=== PATIENT | female | born 1960 | race Caucasian/White ===

== ENCOUNTER → 2024-02-29 | Outpatient (REF) | payer OTHER, SELFPAY ==
[2024-02-29 08:57] LABS: Hematocrit 23.2 % (37-47); Hemoglobin 7.1 g/dL (12.0-15.0); Mean Corp Hgb Conc 30.6 g/dL (32-36); Mean Corpuscular Hgb 28.4 pg (27.0-32.0); Mean Corpuscular Volume 92.8 fL (81-99); Mean Platelet Vol. 9.8 fl (6.2-12.0); Platelet Count 207 K/mm3 (150-450); RBC Distribution Width CV 17.3 % (11.6-14.6); RBC Distribution Width SD 57.8 fl (35.1-43.9); White Blood Count 4.3 K/mm3 (4.4-11.0)
[2024-02-29 11:17] LABS: ALB/GLOB Ratio 0.6 RATIO (0.9-2.4); AST(SGOT) 24 U/L (15-37); Alanine Aminotransfer ALT/SGPT 7 U/L (13-56); Albumin, Serum 2.1 g/dL (3.2-5.0); Alkaline Phosphatase 49 U/L (45-117); Anion Gap 4 (5-15); BUN 14 mg/dL (7-18); BUN/Creat Ratio 7.8 RATIO (10-20); Calcium,Total 7.8 mg/dL (8.5-10.1); Chloride 97 mmol/L (98-107); Creatinine, Serum 1.79 mg/dL (0.55-1.02); EST Glomerular Filtration Rate 31 mL/min (>60); Est Glom Filt Rate - Afr Amer 37 mL/min (>60); Globulin 3.8 g/dL (2.2-4.2); Glucose 90 mg/dL (74-106); Potassium 2.6 mmol/L (3.5-5.1); Protein, Total 5.9 g/dL (6.4-8.2); Sodium Level 135 mmol/L (136-145)
== END ==
LOC: OLS.SW 05:10
PROVIDERS: PCP Family Medicine; Visit Provider Family Medicine
DX: I10 Essential (primary) hypertension (principal)
CPT/HCPCS: 36415; 80053; 85027

== ENCOUNTER 2024-03-11 17:30 | Emergency (ER) | payer OTHER, SELFPAY ==
[2024-03-11 17:34] VITALS: BP 110/63; PULSE 82; RESP 16; TEMP 36.9; O2SAT 95
--- NOTE | 2024-03-11 18:18 | EX.ED.DYSGE1 ---
HPI History of Present Illness Chief Complaint: Wound Check Detail of Chief Complaint: Patient presents for wound check Informant: patient Narrative Narrative: Patient presents to the emergency department from care home via EMS for a wound check to her abdominal wound after she had abdominal aortic aneurysm repair. Patient states that she had a emergency surgery to fix a ruptured AAA in July of this year. She then had revision 3 to 4 weeks ago at [facility] in [place]. Patient states that she has noticed some blood weeping from the wound for the last 2 weeks. Patient denies fevers although she has had some chills. Patient not scheduled to see the surgeons again till March. Patient on dialysis and normally goes on Monday and Monday. Patient also takes heparin injections every 8 hours. Patient also concerned about the wound on her left forearm. She also complains of black toes on her left foot that she has had since before the surgery and states that nobody is done anything about those. [facility] Medical History (Updated 03/11/24 @ 22:[address] Sadia Phoenix, ) nursing home (current) use of anticoagulants Gross hematuria Retroperitoneal hematoma Constipation, unspecified Raynaud's syndrome without gangrene Hypo-osmolality and hyponatremia Hyperlipidemia, unspecified Hypothyroidism, unspecified Anemia, unspecified Need for assistance with personal care Other malaise Other abnormalities of gait and mobility Unsteadiness on feet Muscle weakness (generalized) Other symbolic dysfunctions Dysphagia, oropharyngeal phase Essential (primary) hypertension Activated protein C resistance Unspecified severe protein-calorie malnutrition Acute respiratory failure with hypoxia Emphysema, unspecified Peripheral vascular disease, unspecified Enterocolitis due to Clostridium difficile, not specified as recurrent Acute kidney failure, unspecified Leakage of aortic (bifurcation) graft (replacement), subsequent encounter Abdominal aortic aneurysm, ruptured, unspecified Home Medications ?Medication ?Instructions ?Recorded ?Last Taken ?Type amlodipine 10 mg tablet 10 mg PO DAILY 03/11/24 Unknown History aspirin 81 mg tablet,delayed 81 mg PO DAILY 03/11/24 Unknown History release (Adult Aspirin Regimen) atorvastatin 20 mg tablet 20 mg PO QHS 03/11/24 Unknown History heparin (porcine) 5,000 unit/mL (1 5,000 unit subcut Q8H 03/11/24 Unknown History mL) injection cartridge hydralazine 25 mg tablet 25 mg PO BID PRN PRN blood pressure 03/11/24 Unknown History levothyroxine 125 mcg tablet 125 mcg PO DAILY 03/11/24 Unknown History levothyroxine 25 mcg tablet 25 mcg PO 03/11/24 Unknown History metoprolol tartrate 25 mg tablet 25 mg PO BID 03/11/24 Unknown History oxycodone 5 mg tablet 5 mg PO Q6H 03/11/24 Unknown History Allergy/AdvReac Type Severity Reaction Status Date / Time iodine Allergy Intermediate Nausea Verified 03/11/24 17:34 shellfish derived Allergy Intermediate Nausea Verified 03/11/24 17:34 Social History Smoking Status: Former smoker ROS ROS ED Review of Systems ROS Unobtainable: other Constitutional Constitutional ED: Reports lethargy; Denies chills, fever(s), sweats or weight loss Eyes Eyes: Denies blurry vision, change in vision or diplopia ENT ENT ED: Denies rhinorrhea or sore throat Cardiovascular Cardiovascular: Denies chest pain, orthopnea or racing heartbeat Respiratory/Chest Respiratory/Chest: Denies cough, dyspnea, dyspnea on exertion, orthopnea or sputum Gastrointestinal Gastrointestinal: Reports other Details: Abdominal wound ; Denies abdominal pain, diarrhea, nausea or vomiting Genitourinary Genitourinary ED: Denies dysuria, hematuria or urinary frequency Musculoskeletal Musculoskeletal: Reports other Details: Black toes on left foot ; Denies arthralgias, back pain, myalgias or neck pain Integumentary Denies abscess, Abrasions or rash Neurologic Neurologic: Denies headache(s) or weakness Psychiatric Psychiatric: Denies anxiety, depression or suicidal thoughts Endocrine Endocrinology: Denies polydipsia, polyphagia or polyuria Hematologic/Lymphatic Hematologic/Lymphatic: Denies easy bleeding, easy bruising or lymphadenopathy Allergic/Immunologic Allergic/Immunologic ED: Denies mouth swelling, tongue swelling or urticaria EXAM Physical Exam Const Vital Signs: 03/11/24 17:34 03/11/24 19:00 03/11/24 19:30 Temperature 98.5 F 97.6 F L Temperature Source Oral Temporal Pulse Rate 82 80 82 Respiratory Rate 16 19 H Blood Pressure 110/63 141/71 H 138/70 H Blood Pressure Mean 78 94 92 Pulse Ox 95 92 Oxygen Delivery Method Nasal Cannula Nasal Cannula Oxygen Flow Rate (L/min) 3 3 03/11/24 20:00 03/11/24 22:00 Temperature 97.6 F L 98.0 F Temperature Source Temporal Temporal Pulse Rate 87 88 Respiratory Rate 19 H 16 Blood Pressure 121/74 H 132/79 H Blood Pressure Mean 89 96 Pulse Ox 97 94 Oxygen Delivery Method Nasal Cannula Nasal Cannula Oxygen Flow Rate (L/min) 3 Positive well nourished and well developed General Appearance ED: well developed and NAD HEENT Reports TM's clear and moist mucous membranes normocephalic and atraumatic; Negative for trauma or tenderness Tympanic Membrane ED: Yes TM's clear Eyes PERRL and EOMs intact bilaterally General Eye ED: Negative for pale conjunctiva or scleral icterus Neck no lymphadenopathy, supple and no JVD General: Negative for tenderness Chest Wall inspection of chest normal and palpation of chest normal Chest: Negative for tenderness Resp normal respiratory effort and clear to auscultation bilaterally Effort and Inspection: Negative for respiratory distress or pain with movement Auscultation: Negative for rhonchi, wheezes or diminished lung sounds Cardio regular rate, regular rhythm, S1 normal heart sound, S2 normal heart sound and no murmurs Peripheral Pulses: pulses 2+ throughout GI normal to inspection, nondistended, normoactive bowel sounds, soft to palpation, non-distended and no masses GI Narrative: Patient has a large wound on the left lower abdomen that appears to have dehisced with large central clot and some oozing of blood from the periphery of the wound. No significant cellulitic changes noted. Back/Spine no CVA tenderness and no thoracic nor lumbar tenderness Extremity normal to inspection Extremity Narrative: Left wrist-patient has small 2 cm wound to her left wrist I suspect may be related to cannulization of area. No cellulitic changes noted here. No masses palpated. No fluctuance. Neurovascularly intact. Left foot-patient does have necrosis to the distal tip of the great toe as well as the second toe. She does have dorsal pedal pulses that are palpable. Cap refill 5 seconds. General Extremety ED: Negative for edema General Extremity: Negative for edema Neuro oriented x3, CN's II-XII intact bilaterally, no sensory deficits noted and gait normal Sensorium / Orientation: awake, alert, oriented to person, oriented to place and oriented to time Motor Exam: strength 5/5 throughout and strength abnormal Psych mental status grossly normal Skin no rashes or lesions noted and no wounds MDM MDM MDM Narrative Medical decision making narrative: Patient presents the emergency department for wound check to the abdominal wound. Patient had surgery for a AAA repair 2 to 3 weeks ago at [facility]. Patient's been having issues with the wound healing and has been having bleeding from the wound for couple weeks. Patient on heparin 3 times a day subcu. She denies fever but she has had some chills. CBC with differential obtained showed a white count of 6.2 with hemoglobin 7.4 and platelet count of 166. Chemistries unremarkable. CT scan of the abdomen pelvis obtained without contrast as we could not obtain a good peripheral IV. CT shows multiple abdominal fluid collections including right upper abdomen and left mid abdomen left abdominal wall with potential hematomas versus abscesses. Patient also noted to have pleural effusions bilaterally. Discussed results with patient. Also discussed case with [facility] transfer line and patient was accepted to their facility to their emergency department by Dr. Guerra for further evaluation. I was able to place a left EJ IV which patient tolerated well. Lab Data Attestation: I reviewed the patient's lab results. Labs: Laboratory Results - last 24 hr 03/11/24 18:40 WBC 6.2 RBC 2.51 L Hgb 7.4 L Hct 24.1 L MCV 96.0 MCH 29.5 MCHC 30.7 L RDW Std Deviation 63.7 H RDW Coeff of Monika 18.2 H Plt Count 166 MPV 9.6 Neut % (Auto) Not Reportable Absolute Neuts (auto) 5.5 Absolute Lymphs (auto) 0.31 L Total Counted 100 Neutrophils % (Manual) 85 H Band Neutrophils % 4 Lymphocytes % (Manual) 5 L Monocytes % (Manual) 2 Metamyelocytes % 1 Myelocytes % 3 H Differential Comment Not Reportable Diff Path Review May foll Platelet Estimate ADEQUATE RBC Morphology N CHROM Hypochromasia RARE Anisocytosis RARE Macrocytosis RARE Sodium 135 L Potassium 3.7 Chloride 98 Carbon Dioxide 31.0 Anion Gap 5 BUN 9 Creatinine 1.37 H Estim Creat Clear Calc 39.14 Est GFR (MDRD) Af Amer 50 L Est GFR (MDRD) Non-Af 42 L BUN/Creatinine Ratio 6.6 L Glucose 62 L Calcium 8.5 Radiography Diagnostic Testing: Clinical Impression(s) from Imaging Studies Foot X-Ray 03/11/24 18:45 IMPRESSION: No demonstrated phalangeal fracture or suspicious osseous lesion Distal joint arthrosis Electronically Signed: Pablo Gonzales MD at 19:41 EDT , Abdomen/Pelvis CT 03/11/24 19:04 IMPRESSION: Multiple abdominal fluid collections including in the right upper abdomen, left midabdomen, and left abdominal wall with potential hematomas versus abscesses. Hepatosplenomegaly. Calcified retroperitoneal and pelvic lymph nodes. Lower lung consolidation and pleural effusions. Electronically Signed: Constantin Hensley MD at 22:27 EDT , Discharge Plan Triage Chief Complaint: Wound Check ED Provider: Sadia Phoenix Dx/Rx/DC Orders Clinical Impression: Postoperative abdominal wound hemorrhage, Anemia Prescriptions: No Action amlodipine 10 mg tablet 10 mg PO DAILY aspirin [Adult Aspirin Regimen] 81 mg tablet,delayed release (DR/EC) 81 mg PO DAILY atorvastatin 20 mg tablet 20 mg PO QHS heparin (porcine) 5,000 unit/mL (1 mL) cartridge 5,000 unit subcut Q8H hydralazine 25 mg tablet 25 mg PO BID PRN PRN (Reason: blood pressure) levothyroxine 25 mcg tablet 25 mcg PO Rx Instructions: give every mon, levothyroxine 125 mcg tablet 125 mcg PO DAILY metoprolol tartrate 25 mg tablet 25 mg PO BID oxycodone 5 mg tablet 5 mg PO Q6H Primary Care Provider: Ethan Rodriguez Referrals: Ethan Rodriguez MD [Primary Care Provider] - Print Language: Stateless Disposition Disposition: DC/Tx to Another Type of HCF
--- NOTE | 2024-03-11 18:45 | RAD_ITS ---
STUDY: X-RAY - LEFT FOOT CLINICAL: Female, 63 years old. Pain and swelling TECHNIQUE: 3 view(s) of the foot. COMPARISON: None. FINDINGS: Normal talus, calcaneus, and tarsal bones. Normal visualized subtalar, talonavicular, calcaneocuboid, tarsal and tarsometatarsal articulations. Normal metatarsi. Normal metatarsophalangeal joint of the great toe. Normal tibial and fibular sesamoid bones. Interphalangeal joint arthrosis. Normal phalanges of the great toe. Normal second through fifth metatarsophalangeal joints. Age consistent PIP and DIP joint arthrosis. No demonstrated phalangeal fracture or suspicious osseous lesion The soft tissue structures are unremarkable. RAD/Foot min 3 Views IMPRESSION: No demonstrated phalangeal fracture or suspicious osseous lesion Distal joint arthrosis Electronically Signed: Pablo Gonzales MD at 19:41 EDT ,
[2024-03-11 18:47] LABS: Hematocrit 24.1 % (37-47); Hemoglobin 7.4 g/dL (12.0-15.0); Mean Corp Hgb Conc 30.7 g/dL (32-36); Mean Corpuscular Hgb 29.5 pg (27.0-32.0); Mean Platelet Vol. 9.6 fl (6.2-12.0); POSITIVE COUNT YES; POSITIVE MORPHOLOGY YES; Platelet Count 166 K/mm3 (150-450); RBC Distribution Width CV 18.2 % (11.6-14.6); RBC Distribution Width SD 63.7 fl (35.1-43.9); Red Blood Count 2.51 M/mm3 (4.2-5.4); White Blood Count 6.2 K/mm3 (4.4-11.0)
[2024-03-11 18:53] LABS: Differential Indicated MANUAL DIFF
[2024-03-11 18:57] VITALS: BMI 17.2
[2024-03-11 19:00] VITALS: BP 141/71; PULSE 80; RESP 19; TEMP 36.4; O2SAT 92
[2024-03-11 19:00] LABS: Anion Gap 5 (5-15); BUN 9 mg/dL (7-18); BUN/Creat Ratio 6.6 RATIO (10-20); Calcium,Total 8.5 mg/dL (8.5-10.1); Chloride 98 mmol/L (98-107); Creatinine, Serum 1.37 mg/dL (0.55-1.02); EST Glomerular Filtration Rate 42 mL/min (>60); Est Glom Filt Rate - Afr Amer 50 mL/min (>60); Estimated Creatinine Clearance 39.14 ml/min; Glucose 62 mg/dL (74-106); Potassium 3.7 mmol/L (3.5-5.1); Sodium Level 135 mmol/L (136-145)
--- NOTE | 2024-03-11 19:04 | CT_ITS ---
STUDY: CT ABDOMEN AND PELVIS WITHOUT CONTRAST REASON FOR EXAM: Female, 63 years old. Wound left abdomen s/p AAA repair RADIATION DOSAGE (If Supplied By Facility): CTDIvol = ( 6.28 ) mGy, DLP = ( 389.03 ) mGycm TECHNIQUE: Transaxial images were obtained from the dome of the diaphragm to the symphysis pubis without oral contrast, and without intravenous contrast. Sagittal and coronal images were reconstructed. Individualized dose optimization techniques were used for this CT. COMPARISON: None. FINDINGS: There is lower lung airspace consolidation.. There are moderate bilateral pleural effusions. There are coronary artery calcifications. There is hepatomegaly with diffuse hepatic enlargement. Normal gallbladder and extrahepatic biliary system. There is mild splenomegaly. Normal pancreas. Normal bilateral adrenal glands. There is mild atrophy of the right kidney. Adjacent to the medial aspect of the right kidney is a 6.2 x 3.0 cm peripherally calcified low-density collection. Normal left kidney. Normal visualized stomach. Normal small intestine. Normal colon. There is moderate stool. There is non-visualization of the appendix. There is atherosclerotic calcification of the abdominal aorta with graft extending to the iliac arteries and left common iliac artery stent. Normal inferior vena cava. There are multiple calcified retroperitoneal and pelvic lymph nodes. Normal urinary bladder. Normal visualized uterus. There is mild free fluid in the abdomen and pelvis. There is 10.2 x 8.3 cm fluid collection of the left mid abdomen. There is 6.5 x 3.3 cm fluid collection of the left lower abdominal wall. There is degenerative change of the spine at L5-S1. CT/Abdomen/Pelvis without Cont IMPRESSION: Multiple abdominal fluid collections including in the right upper abdomen, left midabdomen, and left abdominal wall with potential hematomas versus abscesses. Hepatosplenomegaly. Calcified retroperitoneal and pelvic lymph nodes. Lower lung consolidation and pleural effusions. Electronically Signed: Constantin Hensley MD at 22:27 EDT ,
--- NOTE | 2024-03-11 19:28 | ED.RN ---
Pt. refusing anymore PIV attempts at this time. Pt. educated and IV was necessary to potentially receive medications/antibiotics. CT changed to no contrast at this time.
[2024-03-11 19:30] VITALS: BP 138/70; PULSE 82
[2024-03-11 19:48] LABS: Lymphocyte 5 % (19-41); Metamyelocyte 1 % (0-1); Monocyte 2 % (0-10); Myelocyte 3 % (0-0); Neutrophil-Band 4 % (0-5); Neutrophil-Segmented 85 % (47-70); Total Cells Counted 100 (MANUAL DIFF)
[2024-03-11 19:50] LABS: Anisocytosis RARE; Hypochromasia RARE; Macrocytosis RARE; Platelet Estimate ADEQUATE (ADEQ); Red Cell Morphology N CHROM NORMAL (NORM C&C)
[2024-03-11 19:52] LABS: Absolute Lymphocyte Count 0.31 X10^3/uL (0.83-4.51); Absolute Neutrophil Count 5.5 X10^3/uL (2.0-7.7)
[2024-03-11 20:00] VITALS: BP 121/74; PULSE 87; RESP 19; TEMP 36.4; O2SAT 97
[2024-03-11 22:00] VITALS: BP 132/79; PULSE 88; RESP 16; TEMP 36.7; O2SAT 94
--- NOTE | 2024-03-11 22:51 | ED.RN ---
This RN called to give report to [facility] and let them know she will be transferred to [place].
--- NOTE | 2024-03-11 22:52 | ED.RN ---
PT ACCEPTED AT [facility]
[2024-03-11 23:00] VITALS: BP 139/81; PULSE 79; RESP 20; TEMP 36.9; O2SAT 94
--- NOTE | 2024-03-11 23:02 | ED.RN ---
CALLED [facility] ETA 730AM. ASKED FOR OUTSOURCE, TO CALL BACK.
[2024-03-12] VITALS (10 sets, daily range): BP systolic 121–144; BP diastolic 65–83; PULSE 77–92; RESP 16–20; TEMP 36.6–36.9; O2SAT 93–100
[2024-03-12] MEDS: Morphine 4 MG/ML Syringe IV (02:37)
[2024-03-12 14:42] LABS: Pathologist Review Reviewed
== END 2024-03-12 08:34 | disposition other institution (70) ==
PROVIDERS: Emergency Provider Emergency Medicine; PCP Family Medicine; Visit Provider Emergency Medicine
DX: L76.22 Postprocedural hemorrhage of skin and subcutaneous tissue following other procedure (principal); I96 Gangrene, not elsewhere classified; J43.9 Emphysema, unspecified; S61.502A Unspecified open wound of left wrist, initial encounter; X58.XXXA Exposure to other specified factors, initial encounter; J90 Pleural effusion, not elsewhere classified; Z99.2 Dependence on renal dialysis; R68.83 Chills (without fever); I10 Essential (primary) hypertension; E78.5 Hyperlipidemia, unspecified; E03.9 Hypothyroidism, unspecified; D64.9 Anemia, unspecified; Z79.82 Long term (current) use of aspirin; Z79.01 Long term (current) use of anticoagulants; Z79.890 Hormone replacement therapy; Z79.899 Other long term (current) drug therapy; Z87.891 Personal history of nicotine dependence
CPT/HCPCS: 73630; 74176; 80048; 85025; 96374; 99285; A4216

== ENCOUNTER 2024-04-11 00:13 | Emergency (ER) | payer OTHER, SELFPAY ==
[2024-04-11] VITALS (8 sets, daily range): BP systolic 104–114; BP diastolic 57–66; PULSE 78–100; RESP 16–18; TEMP 36.4–37; O2SAT 94–98; BMI 20.5
[2024-04-11] MEDS: 0.9% Normal Saline (500mL Bag) 500 ML 999 ML IV (00:48)
[2024-04-11 00:51] LABS: Absolute Lymphocyte Count 0.63 X10^3/uL (0.83-4.51); Absolute Neutrophil Count 12.6 X10^3/uL (2.0-7.7); Basophil# 0.07 X10^3/uL; Basophil% 0.5 % (0-1); Eosinophil# 0.02 X10^3/uL; Eosinophils% 0.1 % (0-5); Hematocrit 32.4 % (37-47); Hemoglobin 9.7 g/dL (12.0-15.0); Lymphocyte # 0.63 X10^3/ul (0.83-4.51); Lymphocyte % 4.5 % (19-41); Mean Corp Hgb Conc 29.9 g/dL (32-36); Mean Corpuscular Hgb 27.9 pg (27.0-32.0); Mean Corpuscular Volume 93.1 fL (81-99); Mean Platelet Vol. 9.6 fl (6.2-12.0); Monocyte# 0.57 X10^3/uL; Monocyte% 4.1 % (0-10); NRBC Flagged by Analyzer 0 % (0-5); Neutrophil # 12.56 X10^3/uL (2.7-7.7); Neutrophil % 89.3 % (47-70); POSITIVE MORPHOLOGY YES; Platelet Count 141 K/mm3 (150-450); RBC Distribution Width CV 17.3 % (11.6-14.6); RBC Distribution Width SD 57.4 fl (35.1-43.9); Red Blood Count 3.48 M/mm3 (4.2-5.4); White Blood Count 14.1 K/mm3 (4.4-11.0)
[2024-04-11 00:52] LABS: Differential Indicated SCAN CRITERIA MET
--- NOTE | 2024-04-11 00:55 | RAD_ITS ---
INDICATION: fever EXAMINATION/TECHNIQUE: X-RAY - XR Chest 1 View COMPARISON: None. FINDINGS: LINES/DEVICES: Right-sided dialysis catheter with the distal tip at the superior vena cava/right atrial junction. LUNGS: Small left pleural effusion. No focal infiltrate is identified. No evidence of a pneumothorax. Hyperinflation of the lungs which may represent COPD. MEDIASTINUM AND CARDIOVASCULAR STRUCTURES: Cardiac silhouette is normal in size and contour. Mediastinum is unremarkable. BONES AND SOFT TISSUES: No acute abnormality. RAD/Chest 1 View (Portable) IMPRESSION: Small left pleural effusion. Electronically Signed: Lavon Smith DO at 1:26 EST ,
[2024-04-11 01:05] LABS: Anion Gap 5 (5-15); BUN 39 mg/dL (7-18); BUN/Creat Ratio 18.3 RATIO (10-20); Calcium,Total 7.6 mg/dL (8.5-10.1); Chloride 100 mmol/L (98-107); Creatinine, Serum 2.13 mg/dL (0.55-1.02); EST Glomerular Filtration Rate 25 mL/min (>60); Est Glom Filt Rate - Afr Amer 30 mL/min (>60); Estimated Creatinine Clearance 23.69 ml/min; Glucose 87 mg/dL (74-106); Potassium 3.9 mmol/L (3.5-5.1); Sodium Level 137 mmol/L (136-145)
[2024-04-11 01:15] LABS: Procalcitonin 0.62 ng/mL (0.00-0.09)
[2024-04-11 01:27] LABS: Differential Comment SCANNED; Platelet Estimate ADEQUATE (ADEQ); Red Cell Morphology NORM C+C NORMAL (NORM C&C)
[2024-04-11 02:39] LABS: Mucous, Urine 0 SEEN /hpf (<or=2+); Squamous Epithelial Cells - UA 0 SEEN /hpf (5-10)
[2024-04-11 02:41] LABS: Color, Urine Amber (Yellow); Glucose, Dipstick Normal (Normal); Ketone-Dipstick Negative (Negative); Leukocyte Esterase-Dipstick 500 /ul (Negative); Nitrite-Dipstick Negative (Negative); Occult Blood-Urine 25 /ul (Negative); Protein-Dipstick 30 mg/dl (Negative); Urine Clarity Clear (Clear); Urine Urobilinogen Normal (Normal); Urine pH 6.5 (5.0 - 8.0)
[2024-04-11 03:04] LABS: Bacteria 1+ /hpf (None Seen); Red Blood Cells-Urine 0-5 SEEN /hpf (0-5); Urine Bilirubin Dipstick 3 mg/dL (Negative); White Blood Cells 10-25 SEEN /hpf (0-5)
--- NOTE | 2024-04-11 03:07 | EX.ED.DYSGE1 ---
HPI History of Present Illness Chief Complaint: Fever Informant: EMS and SNF Narrative Narrative: Patient is a 63-year-old female with past medical history of hypertension hyperlipidemia hypothyroidism and chronic renal 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. She previously had to have a ruptured aortic aneurysm fixed and then was recently seen in the hospital secondary to left-sided abdominal pain and found to have fluid collection concerning for abscess formation along the left kidney. She was transferred to an outside facility and underwent surgical intervention for this. She is back at the [facility] and today began complaining of some left-sided abdominal pain and according to the nursing staff had a temperature of 100 degrees and therefore they were concerned about repeat infection and therefore sent the patient to the hospital for evaluation They report the patient is chronically confused and is at her baseline mental status Patient is a DNR comfort care only [facility] Medical History (Updated 04/14/24 @ 06:[address] Wilbert Cueto, DO) long-term (current) use of anticoagulants Gross hematuria Retroperitoneal hematoma Constipation, unspecified Raynaud's syndrome without gangrene Hypo-osmolality and hyponatremia Hyperlipidemia, unspecified Hypothyroidism, unspecified Anemia, unspecified Need for assistance with personal care Other malaise Other abnormalities of gait and mobility Unsteadiness on feet Muscle weakness (generalized) Other symbolic dysfunctions Dysphagia, oropharyngeal phase Essential (primary) hypertension Activated protein C resistance Unspecified severe protein-calorie malnutrition Acute respiratory failure with hypoxia Emphysema, unspecified Peripheral vascular disease, unspecified Enterocolitis due to Clostridium difficile, not specified as recurrent Acute kidney failure, unspecified Leakage of aortic (bifurcation) graft (replacement), subsequent encounter Abdominal aortic aneurysm, ruptured, unspecified Home Medications ?Medication ?Instructions ?Recorded ?Last Taken ?Type amlodipine 10 mg tablet 5 mg PO DAILY 03/11/24 Unknown History aspirin 81 mg tablet,delayed 81 mg PO DAILY 03/11/24 Unknown History release (Adult Aspirin Regimen) atorvastatin 20 mg tablet 20 mg PO QHS 03/11/24 Unknown History heparin (porcine) 5,000 unit/mL (1 5,000 unit subcut Q8H 03/11/24 Unknown History mL) injection cartridge levothyroxine 125 mcg tablet 125 mcg PO DAILY 03/11/24 Unknown History levothyroxine 25 mcg tablet 25 mcg PO DAILY 03/11/24 Unknown History metoprolol tartrate 25 mg tablet 25 mg PO BID 03/11/24 Unknown History oxycodone 5 mg tablet 5 mg PO Q6H 03/11/24 Unknown History ascorbic acid (vitamin C) 500 mg 500 mg PO DAILY 04/11/24 Unknown History capsule cephalexin 500 mg capsule 500 mg PO TID 7 days #21 caps 04/11/24 Unknown Rx famotidine 20 mg tablet (Pepcid) 10 mg PO DAILY 04/11/24 Unknown History multivit,tx with iron 27 1 tab PO DAILY 04/11/24 Unknown History ki-wevqzmn-tmxze acid 0.4 mg-minerals tablet (Thera-M) thiamine HCl (vitamin B1) 100 mg 100 mg PO BID 04/11/24 Unknown History tablet Allergy/AdvReac Type Severity Reaction Status Date / Time iodine Allergy Intermediate Nausea Verified 04/11/24 00:21 shellfish derived Allergy Intermediate Nausea Verified 04/11/24 00:21 Social History Smoking Status: Former smoker ROS ROS ED ROS Narrative Please no review of systems may be unreliable based on patient's history of chronic altered mental status/confusion Constitutional Constitutional ED: Denies chills or fever(s) Eyes Eyes: Denies change in vision ENT ENT ED: Denies sore throat Cardiovascular Cardiovascular: Denies chest pain Respiratory/Chest Respiratory/Chest: Denies cough or dyspnea Gastrointestinal Gastrointestinal: Reports abdominal pain; Denies diarrhea, nausea or vomiting Genitourinary Genitourinary ED: Denies dysuria Musculoskeletal Musculoskeletal: Denies back pain or myalgias Integumentary Denies rash Neurologic Neurologic: Denies headache(s) Hematologic/Lymphatic Hematologic/Lymphatic: Denies easy bleeding or easy bruising EXAM Physical Exam Const Vital Signs: 04/11/24 00:14 04/11/24 01:19 04/11/24 02:00 Temperature 98.4 F 98.2 F 97.5 F L Temperature Source Oral Oral Oral Pulse Rate 100 98 100 Respiratory Rate 16 18 18 Blood Pressure 114/65 112/66 106/61 Blood Pressure Mean 81 81 76 Pulse Ox 98 98 97 Oxygen Delivery Method Room Air Room Air Room Air 04/11/24 02:14 04/11/24 03:00 04/11/24 04:21 Temperature 98.6 F 97.8 F Temperature Source Temporal Oral Pulse Rate 100 78 Respiratory Rate 18 17 Blood Pressure 106/61 111/65 104/57 L Blood Pressure Mean 76 80 72 Pulse Ox 98 94 Oxygen Delivery Method Room Air Room Air Positive well developed, cachectic and unkempt General Appearance ED: unkempt, well developed and cachectic Nutritional Appearance: cachectic HEENT Reports dry mucous membranes HEENT Narrative: Mucous membranes are dry and tacky No tongue or lip swelling no oral lesions no airway edema or compromise No secondary findings in the posterior pharynx to suggest infection Mouth ED: Yes dry mucous membranes Mouth: dry mucous membranes Eyes PERRL and EOMs intact bilaterally General Eye ED: Negative for scleral icterus Neck supple Neck Narrative: No nuchal rigidity or meningeal signs noted Chest Wall palpation of chest normal Chest Narrative: No bony deformity or crepitance There is a port in place in the right chest wall consistent with history of dialysis use. No surrounding soft tissue changes to suggest infection Resp normal respiratory effort and clear to auscultation bilaterally Resp Narrative: Breath sounds are diminished throughout but overall clear to auscultation without signs of respiratory distress Cardio regular rate and regular rhythm Rate: other Other Details: Radial and carotid pulses are equal and symmetric GI non-distended and no masses GI Narrative: Abdomen is soft and nondistended with hypoactive bowel sounds. There is pain with palpation along the left lateral abdomen where there is a surgical wound consistent with the reported recent procedure. There is mild dehiscence of the wound but no surrounding signs of secondary infection such as cellulitis or abscess formation. No voluntary guarding or rigidity noted. No pulsatile mass or fluid wave Auscultation: hypoactive bowel sounds Palpation: soft Extremity Extremity Narrative: Trace to +1 pitting edema to the bilateral lower extremities that is equal and symmetric Neuro CN's II-XII intact bilaterally Neuro Narrative: Patient is awake and alert but disoriented to time and place This is reportedly baseline mental status per [facility] No focal neurologic deficit noted Sensorium / Orientation: alert Psych Psych Narrative: Patient has a flat affect Appearance: unkempt Skin Skin Narrative: Wound along the left side abdomen with mild dehiscence but no surrounding secondary findings of infection Patient has delayed capillary refill at 3 seconds to her toes bilaterally consistent with history of Raynaud's without secondary findings to suggest infection MDM MDM MDM Narrative Medical decision making narrative: Patient arrived to the ER with stable vitals and a soft nonsurgical abdomen. Nursing reported a temperature of 100 but report is not give any type of antipyretics such as Tylenol or Motrin and upon arrival patient has a normal temperature of 98.4. Based on her previous surgeries and concern for potential systemic infection such as sepsis versus acute blood loss anemia versus acute on chronic kidney injury versus electrolyte abnormality such as hypokalemia versus internal infection versus UTI or pneumonia I did elect to perform a basic workup. Patient's white count is slightly elevated at 14.1 and absolute neutrophil count is also slight elevated at 12.6 which could be related to stress response versus developing infection. Patient's H&H is low at approximately 10 but this is stable per chart review. Her creatinine is slightly elevated at 2.13 but she has a history of chronic kidney disease and is on dialysis so therefore this is not concerning and her electrolytes are within normal limits. The patient still makes urine and with potential for UTI urine sample was obtained. This did show findings concerning for developing infection +1 bacteria and 10-25 white blood cells without contamination. Therefore the urine was sent for culture and she was started on Rocephin. Because of her recent history of infection around the left kidney requiring abdominal surgery repeat CT scan was obtained. The CT scan shows the persistent pockets of fluid but stated they were smaller in size than previous. And also documented changes concerning for small bowel obstruction. The patient is not distended she is not having bouts of vomiting and she is a DNR comfort care only. I did discuss the case with general surgeon Dr. Vanegas and he agrees as patient is not having bouts of vomiting and is not distended and is a DNR comfort care only at there is no reason for an NG tube or placement in the hospital. With the patient showing improvement of the lesions on her CT scan and not spiking a fever of her entire ER stay I do not feel this needs transferred for repeat evaluation by the surgical team. The fact that her cath urine sample does show changes concerning for infection could indicate the mild fever that they reported at [facility]. However as she is a DNR comfort care only who at this time is hemodynamically stable she does not require admission or transfer she can be given antibiotics while cultures are pending and is safe for discharge back to the [facility] Lab Data Attestation: I reviewed the patient's lab results. Labs: Laboratory Results - last 24 hr 04/11/24 04/11/24 00:24 02:35 WBC 14.1 H RBC 3.48 L Hgb 9.7 L Hct 32.4 L MCV 93.1 MCH 27.9 MCHC 29.9 L RDW Std Deviation 57.4 H RDW Coeff of Monika 17.3 H Plt Count 141 L MPV 9.6 Immature Gran % (Auto) 1.500 H Neut % (Auto) 89.3 H Lymph % (Auto) 4.5 L [place] % (Auto) 4.1 Eos % (Auto) 0.1 Baso % (Auto) 0.5 Absolute Neuts (auto) 12.6 H Absolute Lymphs (auto) 0.63 L Nucleated RBC % 0 Differential Comment SCANNED Platelet Estimate ADEQUATE RBC Morphology NORM C+C Sodium 137 Potassium 3.9 Chloride 100 Carbon Dioxide 31.0 Anion Gap 5 BUN 39 H Creatinine 2.13 H Estim Creat Clear Calc 23.69 Est GFR (MDRD) Af Amer 30 L Est GFR (MDRD) Non-Af 25 L BUN/Creatinine Ratio 18.3 Glucose 87 Calcium 7.6 L Procalcitonin 0.62 H Urine Color [place] Urine Clarity Clear Urine pH 6.5 Ur Specific [place] 1.010 Urine Protein 30 H Urine Glucose (UA) Normal Urine Ketones Negative Urine Occult Blood 25 H Urine Nitrite Negative Urine Bilirubin 3 H Urine Urobilinogen Normal Ur Leukocyte Esterase 500 H Urine RBC 0-5 SEEN Urine WBC 10-25 SEEN Ur Squamous Epith Cells 0 SEEN Urine Bacteria 1+ Urine Mucus 0 SEEN Radiography Diagnostic Testing: Clinical Impression(s) from Imaging Studies Chest X-Ray 04/11/24 00:55 IMPRESSION: Small left pleural effusion. Electronically Signed: Lavon Smith DO at 1:26 EST , Abdomen/Pelvis CT 04/11/24 03:38 IMPRESSION: 1. Fluid collections again seen medial to the right kidney and in the left hemipelvis, decrease in size as compared to 03/11/2024, possibly representing resolving hematomas or abscesses. 2. Dilated small bowel with air-fluid levels measuring up to 3.6 cm in diameter which may represent small bowel obstruction. 3. Bilateral renal atrophy. 4. Mild ascites. 5. Anasarca. 6. Small to moderate left and small right pleural effusions with associated atelectasis. 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, Hypertension Instructions: Urinary Tract Infections in Women Prescriptions: New cephalexin 500 mg capsule 500 mg PO TID 7 Days Qty: 21 0RF No Action amlodipine 10 mg tablet 5 mg PO DAILY aspirin [Adult Aspirin Regimen] 81 mg tablet,delayed release (DR/EC) 81 mg PO DAILY atorvastatin 20 mg tablet 20 mg PO QHS heparin (porcine) 5,000 unit/mL (1 mL) cartridge 5,000 unit subcut Q8H levothyroxine 25 mcg tablet 25 mcg PO DAILY Rx Instructions: give every mon, levothyroxine 125 mcg tablet 125 mcg PO DAILY metoprolol tartrate 25 mg tablet 25 mg PO BID oxycodone 5 mg tablet 5 mg PO Q6H famotidine [Pepcid] 20 mg tablet 10 mg PO DAILY ascorbic acid (vitamin C) 500 mg capsule 500 mg PO DAILY Thera-M 27-0.4 mg tablet 1 tab PO DAILY thiamine HCl (vitamin B1) 100 mg tablet 100 mg PO BID Primary Care Provider: Ethan Rodriguez Referrals: Ethan Rodriguez MD [Primary Care Provider] - Activity Restrictions/Additional Instructions: Your workup today showed a urinary tract infection but no signs of urosepsis. Your CAT scan shows that your previous blood and infection around your right kidney is improving. Add the Keflex/antibiotic that was prescribed from the ER secondary to the UTI but continue all of your other medications as directed by your doctor. Return to the ER should you have any further concerns Print Language: Hebrew Disposition Disposition: Home, Self Care Discharge Date/Time: 04/11/24 07:47
[2024-04-11] MEDS: Ceftriaxone 1 GM/50 ML BAG IV (03:19)
--- NOTE | 2024-04-11 03:38 | CT_ITS ---
INDICATION: abd pain EXAMINATION: CT Abdomen And Pelvis W/O Contrast Injection TECHNIQUE: Helically acquired images were obtained of the abdomen and pelvis with sagittal and coronal reconstructed images. Individualized dose optimization techniques were used for this CT. IV contrast dosage and agent: None. Oral contrast: None. COMPARISON: 03/11/2024 CT. FINDINGS: VESSELS: 3.0 cm aneurysm of the infrarenal abdominal aorta. LIVER: No intrahepatic or extrahepatic biliary duct dilation. GALLBLADDER: No calcified stones. No evidence of cholecystitis. PANCREAS: No evidence of a mass. SPLEEN: Normal. ADRENAL GLANDS: Normal. KIDNEYS AND URETERS: No urinary tract stone. No hydronephrosis or hydroureter. No significant asymmetric perinephric stranding. Bilateral renal atrophy. Again seen is a peripherally calcified fluid collection medial to the right kidney, slightly decreased in size. Fluid collection in the left hemipelvis currently measures 8.0 x 5.8 x 4.6 cm, decreased in size as compared to the prior CT. URINARY BLADDER: Unremarkable. BOWEL: No evidence of diverticulosis or diverticulitis. Appendix not identified. Dilated small bowel with air-fluid levels measuring up to 3.6 cm in diameter. REPRODUCTIVE ORGANS: Unremarkable. PERITONEUM: Mild ascites. No free air. LYMPH NODES: Calcified lymph nodes versus vascular calcifications throughout the abdomen, pelvis and inguinal regions. ABDOMINAL WALL: No abdominal or pelvic wall hernia. Diffuse subcutaneous soft tissue stranding of the abdominal wall. Status post surgical excision of the previously seen fluid collection in the left anterior abdominal wall. BONES: No acute abnormality. LOWER CHEST: Small to moderate left pleural effusion. Small right pleural effusion. Bibasilar atelectasis. CT/Abdomen/Pelvis without Cont IMPRESSION: 1. Fluid collections again seen medial to the right kidney and in the left hemipelvis, decrease in size as compared to 03/11/2024, possibly representing resolving hematomas or abscesses. 2. Dilated small bowel with air-fluid levels measuring up to 3.6 cm in diameter which may represent small bowel obstruction. 3. Bilateral renal atrophy. 4. Mild ascites. 5. Anasarca. 6. Small to moderate left and small right pleural effusions with associated atelectasis. Electronically Signed: Lavon Smith DO at 5:05 EST ,
== END 2024-04-11 07:47 | disposition home or self-care (01) ==
PROVIDERS: Emergency Provider Emergency Medicine; PCP Family Medicine; Visit Provider Emergency Medicine
DX: N39.0 Urinary tract infection, site not specified (principal); N18.6 End stage renal disease; I12.0 Hypertensive chronic kidney disease with stage 5 chronic kidney disease or end stage renal disease; J43.9 Emphysema, unspecified; E78.5 Hyperlipidemia, unspecified; E03.9 Hypothyroidism, unspecified; T81.31XA Disruption of external operation (surgical) wound, not elsewhere classified, initial encounter; Y83.8 Other surgical procedures as the cause of abnormal reaction of the patient, or of later complication, without mention of misadventure at the time of the procedure; Z99.2 Dependence on renal dialysis; R60.9 Edema, unspecified; Z11.52 Encounter for screening for COVID-19; Z66 Do not resuscitate; Z79.82 Long term (current) use of aspirin; Z79.890 Hormone replacement therapy; Z79.899 Other long term (current) drug therapy; Z87.891 Personal history of nicotine dependence
CPT/HCPCS: 71045; 74176; 80048; 81001; 84145; 85025; 87086; 87088; 87631; 96361; 96365; 96366; 99284; A4216

== ENCOUNTER → 2024-04-12 | Outpatient (REF) | payer OTHER, SELFPAY ==
[2024-04-12 07:47] LABS: Hemoglobin 10.7 g/dL (12.0-15.0); Mean Corp Hgb Conc 29.7 g/dL (32-36); Mean Corpuscular Hgb 27.3 pg (27.0-32.0); Mean Corpuscular Volume 91.8 fL (81-99); Mean Platelet Vol. 9.2 fl (6.2-12.0); Platelet Count 133 K/mm3 (150-450); RBC Distribution Width CV 17.7 % (11.6-14.6); RBC Distribution Width SD 59.2 fl (35.1-43.9); Red Blood Count 3.92 M/mm3 (4.2-5.4); White Blood Count 11.4 K/mm3 (4.4-11.0)
[2024-04-12 08:07] LABS: ALB/GLOB Ratio 0.4 RATIO (0.9-2.4); AST(SGOT) 13 U/L (15-37); Alanine Aminotransfer ALT/SGPT 10 U/L (13-56); Albumin, Serum 1.7 g/dL (3.2-5.0); Alkaline Phosphatase 60 U/L (45-117); Anion Gap 6 (5-15); BUN 53 mg/dL (7-18); BUN/Creat Ratio 22.6 RATIO (10-20); Calcium,Total 7.8 mg/dL (8.5-10.1); Chloride 102 mmol/L (98-107); Creatinine, Serum 2.35 mg/dL (0.55-1.02); EST Glomerular Filtration Rate 22 mL/min (>60); Est Glom Filt Rate - Afr Amer 27 mL/min (>60); Glucose 88 mg/dL (74-106); Protein, Total 5.7 g/dL (6.4-8.2); Sodium Level 136 mmol/L (136-145)
== END ==
LOC: OLS.SW 05:00
PROVIDERS: PCP Family Medicine; Visit Provider Internal Medicine
DX: I10 Essential (primary) hypertension (principal); N17.9 Acute kidney failure, unspecified
CPT/HCPCS: 36415; 80053; 85027

== ENCOUNTER → 2024-04-17 | Outpatient (REF) | payer OTHER, SELFPAY ==
[2024-04-17 09:24] LABS: Hematocrit 37.4 % (37-47); Hemoglobin 10.9 g/dL (12.0-15.0); Mean Corp Hgb Conc 29.1 g/dL (32-36); Mean Corpuscular Hgb 27.3 pg (27.0-32.0); Mean Corpuscular Volume 93.5 fL (81-99); Mean Platelet Vol. 9.8 fl (6.2-12.0); POSITIVE COUNT YES; Platelet Count 92 K/mm3 (150-450); RBC Distribution Width CV 17.9 % (11.6-14.6); RBC Distribution Width SD 61.1 fl (35.1-43.9); White Blood Count 5.5 K/mm3 (4.4-11.0)
[2024-04-17 09:25] LABS: Scan Indicated on CBC? Y/N YES- FLAGS NOTED
[2024-04-17 10:03] LABS: ALB/GLOB Ratio 0.4 RATIO (0.9-2.4); AST(SGOT) 19 U/L (15-37); Alanine Aminotransfer ALT/SGPT 8 U/L (13-56); Albumin, Serum 1.7 g/dL (3.2-5.0); Alkaline Phosphatase 71 U/L (45-117); Anion Gap 6 (5-15); BUN 38 mg/dL (7-18); BUN/Creat Ratio 18.1 RATIO (10-20); Calcium,Total 7.7 mg/dL (8.5-10.1); Chloride 105 mmol/L (98-107); EST Glomerular Filtration Rate 25 mL/min (>60); Est Glom Filt Rate - Afr Amer 31 mL/min (>60); Glucose 70 mg/dL (74-106); LDH 237 U/L (84-246); Potassium 4.2 mmol/L (3.5-5.1); Protein, Total 5.7 g/dL (6.4-8.2); Sodium Level 137 mmol/L (136-145)
== END ==
LOC: OLS.SW 04:00
PROVIDERS: PCP Family Medicine; Referring Provider Family Medicine; Visit Provider Family Medicine
DX: N17.9 Acute kidney failure, unspecified (principal); J96.01 Acute respiratory failure with hypoxia; I73.9 Peripheral vascular disease, unspecified
CPT/HCPCS: 36415; 80053; 82140; 83615; 85027; 87493

== ENCOUNTER → 2024-04-24 04:00 | Outpatient (REF) | payer OTHER, SELFPAY ==
[2024-04-24 08:33] LABS: Hematocrit 35.3 % (37-47); Hemoglobin 10.4 g/dL (12.0-15.0); Mean Corp Hgb Conc 29.5 g/dL (32-36); Mean Corpuscular Hgb 27.3 pg (27.0-32.0); Mean Corpuscular Volume 92.7 fL (81-99); Platelet Count 105 K/mm3 (150-450); RBC Distribution Width CV 18.4 % (11.6-14.6); Red Blood Count 3.81 M/mm3 (4.2-5.4); White Blood Count 4.5 K/mm3 (4.4-11.0)
[2024-04-24 09:54] LABS: T3 Total - Triiodothyronine 0.64 ng/mL (0.6-1.81)
[2024-04-24 10:05] LABS: Anion Gap 2 (5-15); BUN 21 mg/dL (7-18); BUN/Creat Ratio 11.9 RATIO (10-20); Calcium,Total 7.7 mg/dL (8.5-10.1); Chloride 109 mmol/L (98-107); Creatinine, Serum 1.77 mg/dL (0.55-1.02); EST Glomerular Filtration Rate 31 mL/min (>60); Est Glom Filt Rate - Afr Amer 37 mL/min (>60); Glucose 65 mg/dL (74-106); Potassium 4.9 mmol/L (3.5-5.1); Sodium Level 140 mmol/L (136-145); T4 Total, Thyroxin 6.1 ug/dL (4.8-13.9)
== END ==
LOC: OLS.SW 04:00
PROVIDERS: PCP Family Medicine; Referring Provider Family Medicine; Visit Provider Family Medicine
DX: E03.9 Hypothyroidism, unspecified (principal); I71.30 Abdominal aortic aneurysm, ruptured, unspecified; T82.330D Leakage of aortic (bifurcation) graft (replacement), subsequent encounter; N17.9 Acute kidney failure, unspecified; A04.72 Enterocolitis due to Clostridium difficile, not specified as recurrent
CPT/HCPCS: 36415; 80048; 84436; 84443; 84480; 85027

== ENCOUNTER → 2024-05-27 | Outpatient (REF) | payer OTHER, SELFPAY ==
[2024-05-27 09:29] LABS: Absolute Lymphocyte Count 0.62 X10^3/uL (0.83-4.51); Absolute Neutrophil Count 3.6 X10^3/uL (2.0-7.7); Basophil# 0.04 X10^3/uL; Basophil% 0.8 % (0-1); Eosinophil# 0.11 X10^3/uL; Eosinophils% 2.3 % (0-5); Hemoglobin 10.4 g/dL (12.0-15.0); Lymphocyte # 0.62 X10^3/ul (0.83-4.51); Lymphocyte % 12.8 % (19-41); Mean Corp Hgb Conc 28.9 g/dL (32-36); Mean Corpuscular Hgb 28.2 pg (27.0-32.0); Mean Corpuscular Volume 97.6 fL (81-99); Mean Platelet Vol. 9.4 fl (6.2-12.0); Monocyte# 0.45 X10^3/uL; Monocyte% 9.3 % (0-10); NRBC Flagged by Analyzer 0 % (0-5); Neutrophil # 3.56 X10^3/uL (2.7-7.7); Neutrophil % 73.8 % (47-70); Platelet Count 140 K/mm3 (150-450); RBC Distribution Width CV 17.2 % (11.6-14.6); Red Blood Count 3.69 M/mm3 (4.2-5.4); White Blood Count 4.8 K/mm3 (4.4-11.0)
[2024-05-27 09:51] LABS: ALB/GLOB Ratio 0.4 RATIO (0.9-2.4); AST(SGOT) 14 U/L (15-37); Alanine Aminotransfer ALT/SGPT 10 U/L (13-56); Albumin, Serum 1.8 g/dL (3.2-5.0); Alkaline Phosphatase 65 U/L (45-117); Anion Gap 4 (5-15); BUN 22 mg/dL (7-18); BUN/Creat Ratio 15.6 RATIO (10-20); Calcium,Total 7.8 mg/dL (8.5-10.1); Chloride 103 mmol/L (98-107); Creatinine, Serum 1.41 mg/dL (0.55-1.02); EST Glomerular Filtration Rate 40 mL/min (>60); Est Glom Filt Rate - Afr Amer 49 mL/min (>60); Free T3 0.9 pg/mL (2.18-3.98); Globulin 4.2 g/dL (2.2-4.2); Glucose 74 mg/dL (74-106); Sodium Level 138 mmol/L (136-145); T4 Total, Thyroxin 11.8 ug/dL (4.8-13.9)
[2024-05-28 05:07] LABS: Prealbumin 10 mg/dL (10-36)
== END ==
LOC: OLS.SW 05:00
PROVIDERS: PCP Family Medicine; Visit Provider Internal Medicine
DX: I10 Essential (primary) hypertension (principal); E78.5 Hyperlipidemia, unspecified; E03.9 Hypothyroidism, unspecified; I71.30 Abdominal aortic aneurysm, ruptured, unspecified; N17.9 Acute kidney failure, unspecified; I73.9 Peripheral vascular disease, unspecified; E43 Unspecified severe protein-calorie malnutrition
CPT/HCPCS: 36415; 80053; 83735; 84134; 84436; 84443; 84481; 85025

== ENCOUNTER → 2024-06-03 | Outpatient (REF) | payer OTHER, SELFPAY ==
[2024-06-03 09:44] LABS: Absolute Lymphocyte Count 0.75 X10^3/uL (0.83-4.51); Absolute Neutrophil Count 4.5 X10^3/uL (2.0-7.7); Basophil# 0.06 X10^3/uL; Eosinophil# 0.06 X10^3/uL; Hematocrit 38.9 % (37-47); Hemoglobin 11.8 g/dL (12.0-15.0); Lymphocyte # 0.75 X10^3/ul (0.83-4.51); Lymphocyte % 12.4 % (19-41); Mean Corp Hgb Conc 30.3 g/dL (32-36); Mean Corpuscular Hgb 28.4 pg (27.0-32.0); Mean Corpuscular Volume 93.5 fL (81-99); Mean Platelet Vol. 9.9 fl (6.2-12.0); Monocyte% 9.9 % (0-10); NRBC Flagged by Analyzer 0 % (0-5); Neutrophil # 4.53 X10^3/uL (2.7-7.7); Neutrophil % 74.9 % (47-70); Platelet Count 196 K/mm3 (150-450); RBC Distribution Width CV 15.7 % (11.6-14.6); RBC Distribution Width SD 54.4 fl (35.1-43.9); Red Blood Count 4.16 M/mm3 (4.2-5.4); White Blood Count 6.1 K/mm3 (4.4-11.0)
[2024-06-03 10:08] LABS: Anion Gap 6 (5-15); BUN 35 mg/dL (7-18); BUN/Creat Ratio 14.6 RATIO (10-20); Calcium,Total 8.7 mg/dL (8.5-10.1); Chloride 102 mmol/L (98-107); EST Glomerular Filtration Rate 22 mL/min (>60); Est Glom Filt Rate - Afr Amer 26 mL/min (>60); Glucose 87 mg/dL (74-106); Potassium 5.3 mmol/L (3.5-5.1); Sodium Level 132 mmol/L (136-145)
== END ==
LOC: OLS.SW 05:00
PROVIDERS: PCP Family Medicine; Visit Provider Internal Medicine
DX: N17.9 Acute kidney failure, unspecified (principal)
CPT/HCPCS: 36415; 80048; 85025; 86140

== ENCOUNTER → 2024-06-06 | Outpatient (REF) | payer OTHER, SELFPAY ==
[2024-06-06 09:50] LABS: Anion Gap 5 (5-15); BUN 30 mg/dL (7-18); BUN/Creat Ratio 11.9 RATIO (10-20); Calcium,Total 8.5 mg/dL (8.5-10.1); Chloride 104 mmol/L (98-107); Creatinine, Serum 2.53 mg/dL (0.55-1.02); EST Glomerular Filtration Rate 21 mL/min (>60); Est Glom Filt Rate - Afr Amer 25 mL/min (>60); Glucose 79 mg/dL (74-106); Sodium Level 134 mmol/L (136-145)
== END ==
LOC: OLS.SW 05:10
PROVIDERS: PCP Family Medicine; Visit Provider Internal Medicine
DX: I73.9 Peripheral vascular disease, unspecified (principal); I10 Essential (primary) hypertension; R13.12 Dysphagia, oropharyngeal phase
CPT/HCPCS: 36415; 80048

== ENCOUNTER → 2024-06-07 | Outpatient (REF) | payer OTHER, SELFPAY ==
[2024-06-07 08:33] LABS: Anion Gap 6 (5-15); BUN 32 mg/dL (7-18); BUN/Creat Ratio 12.1 RATIO (10-20); Calcium,Total 8.6 mg/dL (8.5-10.1); Chloride 107 mmol/L (98-107); Creatinine, Serum 2.65 mg/dL (0.55-1.02); EST Glomerular Filtration Rate 19 mL/min (>60); Est Glom Filt Rate - Afr Amer 24 mL/min (>60); Glucose 77 mg/dL (74-106); Potassium 5.3 mmol/L (3.5-5.1); Sodium Level 134 mmol/L (136-145)
== END ==
LOC: OLS.SW 05:00
PROVIDERS: PCP Family Medicine; Visit Provider Internal Medicine
DX: N17.9 Acute kidney failure, unspecified (principal)
CPT/HCPCS: 36415; 80048

== ENCOUNTER → 2024-06-21 | Outpatient (REF) | payer OTHER, SELFPAY ==
[2024-06-22 08:06] LABS: Mucous, Urine 0 SEEN /hpf (<or=2+); Red Blood Cells-Urine 0 SEEN /hpf (0-5)
[2024-06-22 08:37] LABS: Color, Urine Yellow (Yellow); Glucose, Dipstick Normal (Normal); Ketone-Dipstick Negative (Negative); Leukocyte Esterase-Dipstick 500 /ul (Negative); Nitrite-Dipstick Negative (Negative); Occult Blood-Urine 50 /ul (Negative); Protein-Dipstick 100 mg/dl (Negative); Urine Bilirubin Dipstick Negative (Negative); Urine Clarity Turbid (Clear); Urine Urobilinogen Normal (Normal)
[2024-06-22 08:51] LABS: Bacteria 4+ /hpf (None Seen); Calcium Oxalate Crystals Ur 1+ /hpf (<or=2+); Squamous Epithelial Cells - UA 0-5 SEEN /hpf (5-10); White Blood Cells >100 SEEN /hpf (0-5)
== END ==
LOC: OLS.SW 23:00
PROVIDERS: PCP Family Medicine; Visit Provider Internal Medicine
DX: R31.9 Hematuria, unspecified (principal)
CPT/HCPCS: 81001; 87077; 87086; 87088; 87186

== ENCOUNTER → 2024-06-25 | Outpatient (REF) | payer OTHER, SELFPAY ==
[2024-06-25 07:47] LABS: Absolute Lymphocyte Count 0.69 X10^3/uL (0.83-4.51); Absolute Neutrophil Count 2.8 X10^3/uL (2.0-7.7); Basophil# 0.03 X10^3/uL; Basophil% 0.7 % (0-1); Eosinophil# 0.14 X10^3/uL; Eosinophils% 3.2 % (0-5); Hematocrit 31.2 % (37-47); Hemoglobin 9.4 g/dL (12.0-15.0); Lymphocyte # 0.69 X10^3/ul (0.83-4.51); Lymphocyte % 15.6 % (19-41); Mean Corp Hgb Conc 30.1 g/dL (32-36); Mean Corpuscular Hgb 27.1 pg (27.0-32.0); Mean Corpuscular Volume 89.9 fL (81-99); Mean Platelet Vol. 9.4 fl (6.2-12.0); Monocyte# 0.61 X10^3/uL; Monocyte% 13.8 % (0-10); NRBC Flagged by Analyzer 0 % (0-5); Neutrophil # 2.83 X10^3/uL (2.7-7.7); Neutrophil % 63.8 % (47-70); Platelet Count 142 K/mm3 (150-450); RBC Distribution Width SD 52.8 fl (35.1-43.9); Red Blood Count 3.47 M/mm3 (4.2-5.4); White Blood Count 4.4 K/mm3 (4.4-11.0)
[2024-06-25 08:10] LABS: Anion Gap 3 (5-15); BUN 39 mg/dL (7-18); BUN/Creat Ratio 15.7 RATIO (10-20); Calcium,Total 8.5 mg/dL (8.5-10.1); Chloride 104 mmol/L (98-107); Creatinine, Serum 2.48 mg/dL (0.55-1.02); EST Glomerular Filtration Rate 21 mL/min (>60); Est Glom Filt Rate - Afr Amer 25 mL/min (>60); Glucose 84 mg/dL (74-106); Potassium 4.6 mmol/L (3.5-5.1); Sodium Level 136 mmol/L (136-145); Thyroid Stim Hormone (TSH) 0.679 uIU/mL (0.358-3.740)
== END ==
LOC: OLS.SW 05:00
PROVIDERS: PCP Family Medicine; Visit Provider Internal Medicine
DX: D64.9 Anemia, unspecified (principal); N39.0 Urinary tract infection, site not specified; I71.30 Abdominal aortic aneurysm, ruptured, unspecified; N17.9 Acute kidney failure, unspecified; A04.72 Enterocolitis due to Clostridium difficile, not specified as recurrent
CPT/HCPCS: 36415; 80048; 84443; 85025

== ENCOUNTER 2024-07-18 09:39 | Emergency (ER) | payer OTHER, SELFPAY ==
[2024-07-18] VITALS (11 sets, daily range): BP systolic 125–165; BP diastolic 64–76; PULSE 61–88; RESP 10–24; TEMP 36.3–36.6; O2SAT 94–100; BMI 14.6
--- NOTE | 2024-07-18 09:45 | CT_ITS ---
PROCEDURE: CTA ABDOMEN AND PELVIS WITH CONTRAST REASON FOR EXAM: HISTORY OF LEAK AFTER ABDOMINAL AORTIC ANEURYSM REPAIR. TECHNIQUE: Contiguous axial scans of 2.5 mm slice thicknesses. Sagittal and coronal reconstruction images were obtained. 3D sagittal and coronal reconstructions. One or more dose reduction techniques were used (e.g., automated exposure control, adjustment of mA and/or kv according to patient size, use of iterative reconstruction technique). IV CONTRAST: Isovue 370. 75 mL. COMPARISON: CT abdomen and pelvis dated 04/11/2024. FINDINGS: Aorta: Postoperative change of the abdominal aorta. Mild atheromatous plaque formation. No evidence of dissection. Iliac Arteries: Iliac arteries are normal in size with no significant plaque or stenosis. Left common iliac stent. Celiac: Unremarkable. SMA: Unremarkable. ARIK : Unremarkable. Right Renal: Atrophic. A 5.6 x 4.0 cm fluid collection in the region of the right renal fossa. Left Renal: Unremarkable. Other Findings: [id number] hepatosplenomegaly. Mild ascites. No suspicious adenopathy. Small bilateral pleural effusions. Hypoventilatory changes in the dependent lungs. Severe coronary artery calcifications. Sclerotic lesion in the left posterior iliac wing, axial image 137. Mild sclerosis of the bilateral sacroiliac joints anteriorly. CT/CTA Abd/Pelvis W/WO Contrast IMPRESSION: 1. Postoperative findings related to previous aortic aneurysm repair. 2. Mild ascites. 3. Confined fluid collection again noted in the right renal fossa. 4. Atrophic right kidney. 5. Hepatosplenomegaly. 6. Small bilateral pleural effusions. 7. Sclerotic lesion in the left posterior iliac wing most likely bone island. 8. Other nonacute findings detailed above. Reading Location: [facility]
--- NOTE | 2024-07-18 09:45 | EKG12_ITS ---
Test Reason : SYNCOPE Blood Pressure : */* mmHG Vent. Rate : 68 BPM Atrial Rate : 68 BPM P-R Int : 146 ms QRS Dur : 82 ms QT Int : 424 ms P-R-T Axes : 65 43 81 degrees QTcB Int : 450 ms Normal sinus rhythm Low voltage QRS Nonspecific T wave abnormality Abnormal ECG Confirmed by LIDIA NOBLE ([id number]), school photograph editor SHELDON AGUILAR ([id number]) on 07/22/2024 7:10:08 AM Referred By: Confirmed By: LIDIA NOBLE
--- NOTE | 2024-07-18 09:48 | EX.ED.DYSGE1 ---
HPI History of Present Illness Chief Complaint: Syncope Detail of Chief Complaint: Syncopal episode Dr. Gallegos's office Informant: patient and other (Charge nurse responded to the rapid response. She informed me of reason why patient was at Dr. Cheung office.) Onset/Context/Timing Onset: Today Context: Sudden Onset Timing: Intermittent Quality: Patient had syncopal episode. Location: Dr. Cheung office Current Severity: Mild Maximum Severity: Severe Worsened by: Uncertain Relieved by: Supine position Associated Symptoms Associated Symptoms: Patient has purple fingers. She does have history of Raynaud's. She does Narrative Narrative: Patient is a 64-year-old woman. She has history of factor V Leiden deficiency on anticoagulant. She had repair of a ruptured abdominal aortic aneurysm that was complicated by postop leak resulting in significant retroperitoneal hematoma. Patient's had chronic back pain. Her back pain may be slightly worse. She was at Dr. Gallegos's office to evaluate her hemoglobin drop and evaluation for TPN. Patient is awake but not alert. History is limited for this reason. Review of outside records, and hospital records was undertaken to help determine what best to do for this patient. She complains of back pain. She denies abdominal pain. She denies nausea, vomiting or diarrhea. She denies black or maroon stool. She does endorse fatigue and generalized weakness. She denies dysuria, frequency, urgency or hematuria. When she was seen April 11, 2024 she was diagnosed with urinary tract infection. Prior similar symptoms: No Recent Illness/Hospitalization: Yes [facility] Medical History Factor 5 Leiden mutation, heterozygous Failure to thrive FCI (current) use of anticoagulants Gross hematuria Retroperitoneal hematoma Constipation, unspecified Raynaud's syndrome without gangrene Hypo-osmolality and hyponatremia Hyperlipidemia, unspecified Hypothyroidism, unspecified Anemia, unspecified Need for assistance with personal care Other malaise Other abnormalities of gait and mobility Unsteadiness on feet Muscle weakness (generalized) Other symbolic dysfunctions Dysphagia, oropharyngeal phase Essential (primary) hypertension Activated protein C resistance Unspecified severe protein-calorie malnutrition Acute respiratory failure with hypoxia Emphysema, unspecified Peripheral vascular disease, unspecified Enterocolitis due to Clostridium difficile, not specified as recurrent Acute kidney failure, unspecified Leakage of aortic (bifurcation) graft (replacement), subsequent encounter Abdominal aortic aneurysm, ruptured, unspecified Home Medications ?Medication ?Instructions ?Recorded ?Last Taken ?Type aspirin 81 mg tablet,delayed 81 mg PO DAILY 03/11/24 07/18/24 History release (Adult Aspirin Regimen) atorvastatin 20 mg tablet 20 mg PO QHS 03/11/24 07/17/24 History heparin (porcine) 5,000 unit/mL (1 5,000 unit subcut Q8H 03/11/24 07/18/24 History mL) injection cartridge metoprolol tartrate 25 mg tablet 25 mg PO BID 03/11/24 07/17/24 History ascorbic acid (vitamin C) 500 mg 500 mg PO DAILY 04/11/24 07/18/24 History capsule thiamine HCl (vitamin B1) 100 mg 100 mg PO BID 04/11/24 07/18/24 History tablet cyclobenzaprine 5 mg tablet 5 mg PO TID PRN MUSCLE SPASMS 06/05/24 07/10/24 History Lactobacillus rhamnosus GG 10 1 cap PO DAILY 07/18/24 07/18/24 History billion cell capsule (Culturelle) acetaminophen 325 mg tablet 650 mg PO Q4H PRN fever 07/18/24 Unknown History aluminum-magnesium hydroxide 200 30 ml PO Q4H PRN GI DISTRESS 07/18/24 Unknown History mg-200 mg/5 mL oral suspension amlodipine 5 mg tablet 5 mg PO QHS 07/18/24 07/17/24 History docusate sodium 100 mg tablet 100 mg PO BID PRN constipation 07/18/24 Unknown History dronabinol 2.5 mg capsule (Marinol) 2.5 mg PO BID 07/18/24 07/18/24 History famotidine 10 mg tablet 20 mg PO DAILY 07/18/24 07/18/24 History guaifenesin 100 mg/5 mL oral liquid 200 mg PO Q4H PRN cough 07/18/24 07/14/24 History levothyroxine 200 mcg tablet 200 mcg PO DAILY 07/18/24 07/18/24 History midodrine 10 mg tablet 10 mg PO DAILY PRN for SBP lower 07/18/24 Unknown History than 110 during dialysis tx mirtazapine 30 mg tablet 30 mg PO QHS 07/18/24 07/17/24 History ondansetron 4 mg disintegrating 4 mg PO DAILY PRN nausea and 07/18/24 Unknown History tablet vomiting oxycodone 5 mg tablet 5 mg PO Q6H PRN pain 07/18/24 07/15/24 History polyethylene glycol 3350 17 17 g PO QODAY 07/18/24 07/17/24 History gram/dose oral powder sennosides 8.6 mg-docusate sodium 1 tab-cap PO DAILY PRN constipation 07/18/24 Unknown History 50 mg tablet (Senna Plus) sertraline 25 mg tablet 25 mg PO DAILY 07/18/24 07/18/24 History vitamin B complex-vitamin C-folic 1 tab PO DAILY 07/18/24 07/18/24 History acid 0.8 mg tablet (Renal Vitamin) Allergy/AdvReac Type Severity Reaction Status Date / Time iodine Allergy Intermediate Nausea Verified 07/18/24 10:12 shellfish derived Allergy Intermediate Nausea Verified 07/18/24 10:12 Social History Smoking Status: Former smoker Tobacco: How many years used: 40 alcohol intake: former substance use type: does not use ROS ROS ED Constitutional Constitutional ED: Reports chills and weight loss; Denies fever(s), subjective or sweats Eyes Eyes: Denies blurry vision or change in vision ENT ENT ED: Denies rhinorrhea or sore throat Cardiovascular Cardiovascular: Denies chest pain, orthopnea, palpitations or paroxysmal nocturnal dyspnea Respiratory/Chest Respiratory/Chest: Reports dyspnea and dyspnea on exertion; Denies cough, orthopnea or paroxysmal nocturnal dyspnea Gastrointestinal Gastrointestinal: Denies abdominal pain, constipation, diarrhea, melena or vomiting Genitourinary Genitourinary ED: Denies dysuria, hematuria or urinary frequency Musculoskeletal Musculoskeletal: Reports back pain; Denies arthralgias or myalgias Integumentary Denies abscess Neurologic Neurologic: Reports weakness Hematologic/Lymphatic Hematologic/Lymphatic: Reports easy bruising EXAM Physical Exam Const Vital Signs: 07/18/24 09:50 07/18/24 10:14 07/18/24 10:50 Temperature 97.9 F Temperature Source Axillary Pulse Rate 63 67 Respiratory Rate 16 18 Respiratory Effort Normal Non-Labored Respiratory Pattern Normal Blood Pressure 125/72 H 160/76 H Blood Pressure Mean 89 104 Pulse Ox 96 Oxygen Delivery Method Nasal Cannula Oxygen Flow Rate (L/min) 3 07/18/24 11:00 07/18/24 12:15 07/18/24 13:00 Temperature Temperature Source Pulse Rate 64 65 68 Respiratory Rate 23 H 24 H 20 H Respiratory Effort Respiratory Pattern Blood Pressure 165/64 H 161/66 H 139/69 H Blood Pressure Mean 97 97 92 Pulse Ox 94 100 100 Oxygen Delivery Method Nasal Cannula Nasal Cannula Nasal Cannula Oxygen Flow Rate (L/min) 4 4 Vital signs at the time of this note was not available for review. Patient does not appear well. She is cachectic. She is very pale. Positive well developed and cachectic Constitutional Narrative: She is not alert. General Appearance ED: well developed, cachectic and pallor Nutritional Appearance: cachectic HEENT Reports dry mucous membranes HEENT Narrative: Head is atraumatic normocephalic. Ears normal. Nares patent Mouth ED: Yes dry mucous membranes Mouth: dry mucous membranes Eyes PERRL and EOMs intact bilaterally General Eye ED: Yes pale conjunctiva; Negative for scleral icterus Neck no lymphadenopathy, supple and no JVD Neck Narrative: Trachea is midline. There is no inspiratory expiratory stridor. Chest Wall Chest Narrative: Patient's ribs are easily visualized. She has a vas cath noted right subclavian. Resp normal respiratory effort and No clear to auscultation bilaterally Auscultation: rales bilateral base Cardio regular rate, regular rhythm, S1 normal heart sound, S2 normal heart sound and no murmurs GI GI Narrative: Abdomen is flat nontender none tympanitic. There is no pulsatile mass noted. Auscultation: hypoactive bowel sounds Back/Spine no CVA tenderness Extremity Extremity Narrative: Patient has stigmata of peripheral vascular disease lower extremity. Patient has purple fingers with significantly delayed capillary refill. Uncertain whether this is due to poor perfusion, Raynaud's or combination of both. Neuro CN's II-XII intact bilaterally Sensorium / Orientation: Negative for alert Psych Mood & Affect: depressed Skin no wounds and No skin turgor normal General Skin Exam: pallor; Negative for elasticity normal or jaundice MDM MDM MDM Narrative Medical decision making narrative: Syncopal episode may have been due to vasovagal, need to entertain dysrhythmia, abdominal disease, with significant back pain history of retroperitoneal hematoma and the fact that she is on anticoagulant concerned she may have recurrent bleed. Will obtain CTA of the abdomen and pelvis. Patient does have renal dysfunction. Comprehensive metabolic panel was obtained to assess renal function, electrolytes CO2 anion gap. CBC to assess H&H as well as white count. History & Record Review Additional record(s) reviewed:: Prior outpatient record (Outpatient record from [facility] for PAD and discoloration of toe due to ischemia right and left ankle-brachial indexes were normal. Right 1.16 and left 1.06. Right and left toe PPG waveforms are absent.), Prior ED visit (ER visit March 2024 for fever. Note authored by Dr. Cueto was reviewed. Patient had a elevated white count of 14.1 with a hemoglobin 9.7.) and Other (CT revealed fluid collection around the right kidney and in the left hemipelvis. This is smaller in size compared March 11, 2024. Radiologist felt this was a resolving hematoma or abscess. Patient also had ascites noted.) Lab Data Attestation: I reviewed the patient's lab results. Lab results narrative: White count is normal. There is a slight shift with no bandemia. H&H is stable for patient. Indices are essentially normal. Patient's blood work is at her baseline. Labs: Laboratory Results - last 24 hr 07/18/24 07/18/24 07/18/24 09:51 09:55 09:55 WBC 8.2 RBC 3.65 L Hgb 9.7 L Hct 32.7 L MCV 89.6 MCH 26.6 L MCHC 29.7 L RDW Std Deviation 54.5 H RDW Coeff of Monika 16.8 H Plt Count 281 MPV 9.0 Immature Gran % (Auto) 1.700 H Neut % (Auto) 81.1 H Lymph % (Auto) 6.6 L [place] % (Auto) 9.7 Eos % (Auto) 0.7 Baso % (Auto) 0.2 Absolute Neuts (auto) 6.7 Absolute Lymphs (auto) 0.54 L Nucleated RBC % 0 Sodium 135 L Potassium 4.1 Chloride 97 L Carbon Dioxide 34.0 H Anion Gap 4 L BUN 25 H Creatinine 1.69 H Estim Creat Clear Calc 26.75 Est GFR (MDRD) Af Amer 39 L Est GFR (MDRD) Non-Af 33 L BUN/Creatinine Ratio 14.8 Glucose 89 Lactic Acid 1.3 Calcium 8.7 Total Bilirubin 0.30 AST 18 ALT 14 Alkaline Phosphatase 48 Troponin I High Sens 24 Total Protein 7.1 Albumin 2.0 L Globulin 5.1 H Albumin/Globulin Ratio 0.4 L Blood Type O POSITIVE Antibody Screen POSITIVE Antibody Identification ANTI-C ANTI-Fya Antigen Identification 07/18/24 07/18/24 07/18/24 09:55 09:55 09:55 WBC RBC Hgb Hct MCV MCH MCHC RDW Std Deviation RDW Coeff of Monika Plt Count MPV Immature Gran % (Auto) Neut % (Auto) Lymph % (Auto) [place] % (Auto) Eos % (Auto) Baso % (Auto) Absolute Neuts (auto) Absolute Lymphs (auto) Nucleated RBC % Sodium Potassium Chloride Carbon Dioxide Anion Gap BUN Creatinine Estim Creat Clear Calc Est GFR (MDRD) Af Amer Est GFR (MDRD) Non-Af BUN/Creatinine Ratio Glucose Lactic Acid Calcium Total Bilirubin AST ALT Alkaline Phosphatase Troponin I High Sens Total Protein Albumin Globulin Albumin/Globulin Ratio Blood Type Antibody Screen Antibody Identification WARM AUTOANTIBODY Antigen Identification Fya ANTIGEN - NEGATIVE C ANTIGEN - NEGATIVE K ANTIGEN - NEGATIVE 07/18/24 09:55 WBC RBC Hgb Hct MCV MCH MCHC RDW Std Deviation RDW Coeff of Monika Plt Count MPV Immature Gran % (Auto) Neut % (Auto) Lymph % (Auto) [place] % (Auto) Eos % (Auto) Baso % (Auto) Absolute Neuts (auto) Absolute Lymphs (auto) Nucleated RBC % Sodium Potassium Chloride Carbon Dioxide Anion Gap BUN Creatinine Estim Creat Clear Calc Est GFR (MDRD) Af Amer Est GFR (MDRD) Non-Af BUN/Creatinine Ratio Glucose Lactic Acid Calcium Total Bilirubin AST ALT Alkaline Phosphatase Troponin I High Sens Total Protein Albumin Globulin Albumin/Globulin Ratio Blood Type Antibody Screen Antibody Identification Antigen Identification E ANTIGEN - POSITIVE ABG Data ABG results: ABG 07/18/24 10:23 Specimen Type ART Sample Site L Brach pH 7.50 H Bicarbonate Actual 33.3 H Total CO2 35 Base Excess 10 H O2 Saturation 97 O2 % 3.0 ABG pCO2 42.4 ABG pO2 82 O2 Delivery Device Cannula Vent Mode Not entered Radiography Diagnostic Testing: Clinical Impression(s) from Imaging Studies Abdomen/Pelvis CTA 07/18/24 09:45 IMPRESSION: 1. Postoperative findings related to previous aortic aneurysm repair. 2. Mild ascites. 3. Confined fluid collection again noted in the right renal fossa. 4. Atrophic right kidney. 5. Hepatosplenomegaly. 6. Small bilateral pleural effusions. 7. Sclerotic lesion in the left posterior iliac wing most likely bone island. 8. Other nonacute findings detailed above. Reading Location: [facility]-Evaluation :: I received a call from Perla the radiology strain technician. She informing that patient's GFR was 20. However in light of patient's history, presentation CTA of the abdomen pelvis is indicated. Comments:: Patient was reassessed at 1347. Patient is awake and alert. Sister is not the room. She is at her baseline. She will be discharged back to the nursing facility. Discharge Plan Triage Chief Complaint: Syncope Other Complaint: Abn Labs ED Provider: Sheldon Toribio Dx/Rx/DC Orders Clinical Impression: Near syncope, Essential (primary) hypertension, Muscle weakness (generalized), FCI (current) use of anticoagulants, S/P AAA repair, Peripheral vascular disease, unspecified, Emphysema, unspecified, Chronic anemia, Raynaud phenomenon, Caloric malnutrition Instructions: ED Near-Fainting, Uncertain Cause Prescriptions: No Action cyclobenzaprine 5 mg tablet 5 mg PO TID PRN (Reason: MUSCLE SPASMS) acetaminophen 325 mg tablet 650 mg PO Q4H PRN (Reason: fever) guaifenesin 100 mg/5 mL liquid 200 mg PO Q4H PRN (Reason: cough) dronabinol [Marinol] 2.5 mg capsule 2.5 mg PO BID Rx Instructions: administer before lunch and evening meal/dinner mirtazapine 30 mg tablet 30 mg PO QHS sertraline 25 mg tablet 25 mg PO DAILY Renal Vitamin 0.8 mg tablet 1 tab PO DAILY polyethylene glycol 3350 17 gram/dose powder 17 g PO QODAY Rx Instructions: EVERY OTHER DAY AT BED TIME ondansetron 4 mg tablet,disintegrating 4 mg PO DAILY PRN (Reason: nausea and vomiting) docusate sodium 100 mg tablet 100 mg PO BID PRN (Reason: constipation) midodrine 10 mg tablet 10 mg PO DAILY PRN (Reason: for SBP lower than 110 during dialysis tx) Rx Instructions: for SBP lower than 110 during dialysis tx aspirin [Adult Aspirin Regimen] 81 mg tablet,delayed release (DR/EC) 81 mg PO DAILY atorvastatin 20 mg tablet 20 mg PO QHS heparin (porcine) 5,000 unit/mL (1 mL) cartridge 5,000 unit subcut Q8H metoprolol tartrate 25 mg tablet 25 mg PO BID oxycodone 5 mg tablet 5 mg PO Q6H PRN (Reason: pain) ascorbic acid (vitamin C) 500 mg capsule 500 mg PO DAILY thiamine HCl (vitamin B1) 100 mg tablet 100 mg PO BID amlodipine 5 mg tablet 5 mg PO QHS levothyroxine 200 mcg tablet 200 mcg PO DAILY sennosides-docusate sodium [Senna Plus] 8.6-50 mg tablet 1 tab-cap PO DAILY PRN (Reason: constipation) famotidine 10 mg tablet 20 mg PO DAILY Culturelle 10 billion cell capsule 1 cap PO DAILY aluminum-magnesium hydroxide 200-200 mg/5 mL suspension 30 ml PO Q4H PRN (Reason: GI DISTRESS) Primary Care Provider: Ethan Rodriguez Referrals: Ethan Rodriguez MD [Primary Care Provider] - 1 Week Print Language: Italian Disposition Disposition: Shelter Facility
--- NOTE | 2024-07-18 10:02 | ED.RN ---
UNABLE TO OBTAIN A PULSE OX AT THIS TIME. RESP IN TO DO ABG
[2024-07-18] MEDS: Ondansetron 4 MG/2 ML Vial IV (10:03)
[2024-07-18 10:29] LABS: Base Excess 10 mmol/L (-2 to +2); Bicarbonate 33.3 mmol/L (22-26); Blood Gas Specimen Type ART; Mode Not entered; O2 Delivery Device Cannula; PO2 82 mmHG (75-100); SITE L Brach; SO2 97 % (95-99); Total Carbon Dioxide 35 mmol/L; pCO2 42.4 mmHg (35-45)
[2024-07-18 10:30] LABS: Absolute Lymphocyte Count 0.54 X10^3/uL (0.83-4.51); Absolute Neutrophil Count 6.7 X10^3/uL (2.0-7.7); Basophil# 0.02 X10^3/uL; Basophil% 0.2 % (0-1); Eosinophil# 0.06 X10^3/uL; Eosinophils% 0.7 % (0-5); Hematocrit 32.7 % (37-47); Hemoglobin 9.7 g/dL (12.0-15.0); Lymphocyte # 0.54 X10^3/ul (0.83-4.51); Lymphocyte % 6.6 % (19-41); Mean Corp Hgb Conc 29.7 g/dL (32-36); Mean Corpuscular Hgb 26.6 pg (27.0-32.0); Mean Corpuscular Volume 89.6 fL (81-99); Monocyte% 9.7 % (0-10); NRBC Flagged by Analyzer 0 % (0-5); Neutrophil # 6.66 X10^3/uL (2.7-7.7); Neutrophil % 81.1 % (47-70); POSITIVE DIFFERENTIAL YES; Platelet Count 281 K/mm3 (150-450); RBC Distribution Width CV 16.8 % (11.6-14.6); RBC Distribution Width SD 54.5 fl (35.1-43.9); Red Blood Count 3.65 M/mm3 (4.2-5.4); White Blood Count 8.2 K/mm3 (4.4-11.0)
[2024-07-18 10:47] LABS: ALB/GLOB Ratio 0.4 RATIO (0.9-2.4); AST(SGOT) 18 U/L (15-37); Alanine Aminotransfer ALT/SGPT 14 U/L (13-56); Alkaline Phosphatase 48 U/L (45-117); Anion Gap 4 (5-15); BUN 25 mg/dL (7-18); BUN/Creat Ratio 14.8 RATIO (10-20); Calcium,Total 8.7 mg/dL (8.5-10.1); Chloride 97 mmol/L (98-107); Creatinine, Serum 1.69 mg/dL (0.55-1.02); EST Glomerular Filtration Rate 33 mL/min (>60); Est Glom Filt Rate - Afr Amer 39 mL/min (>60); Estimated Creatinine Clearance 26.75 ml/min; Globulin 5.1 g/dL (2.2-4.2); Glucose 89 mg/dL (74-106); Potassium 4.1 mmol/L (3.5-5.1); Protein, Total 7.1 g/dL (6.4-8.2); Sodium Level 135 mmol/L (136-145); Troponin-I HS 24 pg/mL (3.0-54.0)
[2024-07-18 10:57] LABS: Lactic Acid 1.3 mmol/L (0.4-1.9)
--- NOTE | 2024-07-18 16:47 | ED.RN ---
This RN called report to [facility].
== END 2024-07-18 18:59 | disposition skilled nursing facility (03) ==
PROVIDERS: Emergency Provider Emergency Medicine; PCP Family Medicine; Visit Provider Emergency Medicine
DX: R55 Syncope and collapse (principal); D68.2 Hereditary deficiency of other clotting factors; J43.9 Emphysema, unspecified; E46 Unspecified protein-calorie malnutrition; I73.00 Raynaud's syndrome without gangrene; I10 Essential (primary) hypertension; N28.9 Disorder of kidney and ureter, unspecified; M62.81 Muscle weakness (generalized); M54.9 Dorsalgia, unspecified; G89.29 Other chronic pain; E03.9 Hypothyroidism, unspecified; E78.5 Hyperlipidemia, unspecified; Z79.01 Long term (current) use of anticoagulants; Z79.82 Long term (current) use of aspirin; Z79.890 Hormone replacement therapy; Z79.899 Other long term (current) drug therapy; Z87.891 Personal history of nicotine dependence
CPT/HCPCS: 36600; 74174; 80053; 82803; 83605; 84484; 85025; 86850; 86870; 86900; 86901; 86902; 86905; 93005; 96374; 99284; Q9967; A4216; J2405

== ENCOUNTER 2024-07-23 12:29 | Inpatient (IN) | payer OTHER, SELFPAY ==
[2024-07-23] VITALS (11 sets, daily range): BP systolic 145–182; BP diastolic 78–104; PULSE 56–75; RESP 13–18; TEMP 35.6–36.9; O2SAT 93–99; BMI 14.5; BMI 12.9
--- NOTE | 2024-07-23 12:42 | ED.RN ---
called [facility] to request copy of DNR be faxed. spoke with Dodie and gave her our fax number.
--- NOTE | 2024-07-23 13:07 | EDS_ITS ---
HPI <CHESTER Cameron - Last Filed: 07/23/24 19:42> History of Present Illness Chief Complaint: Weakness Narrative Narrative: 64-year-old female with complex history of factor V Leiden deficiency on anticoagulation, COPD on 2 to 3 L, ESRD on HD MWF, ruptured AAA repaired in the spring 2023 complicated by postop leak requiring subsequent surgery and December 2023 at [facility] in [place], chronic weight loss and debility since then was brought in requesting TPN. She is at [facility]. She has declined since her major health issues and she is bedbound. She was evaluated and told she is not a candidate for PEG tube. According to her sister who is providing history she was supposed to get TPN arranged and was seeing the GI doctor but was not feeling well and was sent to the ED for evaluation. After her testing in the ED was normal she was discharged to her nursing facility but TPN has not been arranged. She was taking in a small amount by mouth but over the last 2 days or so has not wanted anything. [facility] <CHESTER Cameron - Last Filed: 07/23/24 19:42> [facility] Medical History (Updated 07/23/24 @ 17:[address] 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) Open abdominal wall wound Factor 5 Leiden mutation, heterozygous Failure to thrive group home (current) use of anticoagulants Gross hematuria Retroperitoneal hematoma Constipation, unspecified Raynaud's syndrome without gangrene Hypo-osmolality and hyponatremia Hyperlipidemia, unspecified Hypothyroidism, unspecified Anemia, unspecified Need for assistance with personal care Other malaise Other abnormalities of gait and mobility Unsteadiness on feet Muscle weakness (generalized) Other symbolic dysfunctions Dysphagia, oropharyngeal phase Essential (primary) hypertension Activated protein C resistance Unspecified severe protein-calorie malnutrition Acute respiratory failure with hypoxia Emphysema, unspecified Peripheral vascular disease, unspecified Enterocolitis due to Clostridium difficile, not specified as recurrent Acute kidney failure, unspecified Leakage of aortic (bifurcation) graft (replacement), subsequent encounter Abdominal aortic aneurysm, ruptured, unspecified Home Medications ?Medication ?Instructions ?Recorded ?Last Taken ?Type aspirin 81 mg tablet,delayed 81 mg PO DAILY 03/11/24 0 07/23/24 History release (Adult Aspirin Regimen) atorvastatin 20 mg tablet 20 mg PO QHS 03/11/24 History heparin (porcine) 5,000 unit/mL (1 5,000 unit subcut Q 8H 03/11/24 07/23/24 History mL) injection cartridge metoprolol tartrate 25 mg tablet 25 mg PO BID 03/11/24 07/22/24 History ascorbic acid (vitamin C) 500 mg 500 mg PO DAILY 04/1107/23/24 History capsule thiamine HCl (vitamin B1) 100 mg 100 mg PO BID 4 07/23/24 History tablet cyclobenzaprine 5 mg tablet 5 mg PO TID PRN MUSCLE SPA SMS 06/05/24 07/10/24 History Lactobacillus rhamnosus GG 10 1 cap PO DAILY 07/18/24 07/23/24 History billion cell capsule (Culturelle) acetaminophen 325 mg tablet 650 mg PO Q4H PRN fever Unknown History aluminum-magnesium hydroxide 200 30 ml PO Q4H PRN GI D ISTRESS 07/18/24 Unknown History mg-200 mg/5 mL oral suspension amlodipine 5 mg tablet 5 mg PO QHS 07/18/24 5 History docusate sodium 100 mg tablet 100 mg PO BID PRN consti pation 07/18/24 Unknown History dronabinol 2.5 mg capsule (Marinol) 2.5 mg PO BID 06/3007/23/24 History famotidine 10 mg tablet 20 mg PO DAILY 07/18/2406/30 History guaifenesin 100 mg/5 mL oral liquid 200 mg PO Q4H PRN cough 07/18/24 07/14/24 History levothyroxine 200 mcg tablet 200 mcg PO DAILY 07/18/24 07/23/24 History midodrine 10 mg tablet 10 mg PO DAILY PRN for SBP l ower 07/18/24 Unknown History than 110 during dialysis tx mirtazapine 30 mg tablet 30 mg PO QHS 07/18/24 History ondansetron 4 mg disintegrating 4 mg PO DAILY PRN naus ea and 07/18/24 Unknown History tablet vomiting oxycodone 5 mg tablet 5 mg PO Q6H PRN pain 5 07/22/24 History polyethylene glycol 3350 17 17 g PO QODAY 07/18/24 History gram/dose oral powder sennosides 8.6 mg-docusate sodium 1 tab-cap PO DAILY P RN constipation 07/18/24 Unknown History 50 mg tablet (Senna Plus) sertraline 25 mg tablet 25 mg PO DAILY 07/18/2406/30 History vitamin B complex-vitamin C-folic 1 tab PO DAILY 07/1807/23/24 History acid 0.8 mg tablet (Renal Vitamin) Allergy/AdvReac Type Severity Reaction Status Date / Time iodine Allergy Intermediate Nausea Verified 07/23/24 12:30 shellfish derived Allergy Intermediate Nausea Verified 07/23/24 12:30 Social History Smoking Status: Former smoker Tobacco: How many years used: 40 alcohol intake: former substance use type: does not use EXAM <CHESTER Cameron - Last Filed: 07/23/24 19:42> Physical Exam Narrative Exam Narrative: CONST: Cachectic female sitting in bed. EYES: Normal inspection. ENT: Dry mucous membranes. NECK: Normal inspection. RESP: No respiratory distress, CTAB. CVS: Regular rate and rhythm, no murmur, no gallop. ABD: Soft and nontender, no guarding or rebound nondistended. Left lower abdomen has chronic wound packed with gauze. No purulent drainage or odor, no surrounding cellulitis. SKIN: Color normal, no rash, warm, dry, intact. EXTREMITIES: Normal appearance, no pedal edema. NEURO: Alert and answering questions appropriately. PSYCH: Normal affect. Const Vital Signs: 07/23/24 12:29 07/23/24 12:36 07/23/24 13:29 Temperature 96.1 F L Temperature Source Temporal Pulse Rate 71 74 Respiratory Rate 13 14 Respiratory Pattern Normal Blood Pressure 147/83 H 165/78 H Blood Pressure Mean 104 107 Pulse Ox 93 Oxygen Delivery Method Room Air Room Air 07/23/24 14:00 07/23/24 15:00 07/23/24 16:00 Temperature Temperature Source Pulse Rate 74 73 75 Respiratory Rate 14 18 18 Respiratory Pattern Blood Pressure 165/78 H 156/87 H 156/104 H Blood Pressure Mean 107 110 121 Pulse Ox Oxygen Delivery Method 07/23/24 16:48 07/23/24 17:00 Temperature 96.1 F L Temperature Source Pulse Rate 75 74 Respiratory Rate 18 17 Respiratory Pattern Blood Pressure 156/104 H 156/86 H Blood Pressure Mean 121 109 Pulse Ox 93 95 Oxygen Delivery Method Room Air <Dr. Sadia Phoenix DO - Last Filed: 07/23/24 15:48> Physical Exam Const Vital Signs: 07/23/24 12:29 07/23/24 12:36 07/23/24 13:29 Temperature 96.1 F L Temperature Source Temporal Pulse Rate 71 74 Respiratory Rate 13 14 Respiratory Pattern Normal Blood Pressure 147/83 H 165/78 H Blood Pressure Mean 104 107 Pulse Ox 93 Oxygen Delivery Method Room Air Room Air 07/23/24 14:00 07/23/24 15:00 07/23/24 16:00 Temperature Temperature Source Pulse Rate 74 73 75 Respiratory Rate 14 18 18 Respiratory Pattern Blood Pressure 165/78 H 156/87 H 156/104 H Blood Pressure Mean 107 110 121 Pulse Ox Oxygen Delivery Method 07/23/24 16:48 07/23/24 17:00 Temperature 96.1 F L Temperature Source Pulse Rate 75 74 Respiratory Rate 18 17 Respiratory Pattern Blood Pressure 156/104 H 156/86 H Blood Pressure Mean 121 109 Pulse Ox 93 95 Oxygen Delivery Method Room Air MDM <CHESTER Cameron - Last Filed: 07/23/24 19:42> [facility] Narrative Medical decision making narrative: History gathered from: Patient and her sister at bedside Consults: GI, hospitalist Differential includes but not limited to failure to thrive, electrolyte abnormality, TUTU 64-year-old female with complex medical history including ruptured AAA surgery with subsequent surgery due to postop leak, COPD on chronic oxygen, ESRD on HD, malnutrition and debility presents requesting TPN. Weight loss and decreased oral intake is a chronic issue but worsened over the last 1 to 2 days. Records show a visit with Dr. Gallegos on 07/18/2024 to evaluate this issue but it sounds like she had a presyncopal/vasovagal episode and she was sent to the ED and after negative workup was discharged back to her facility. She appears very cachectic. Afebrile. Vital signs stable. She has dry mucous membranes. Unremarkable cardiopulmonary exam. On chronic 3 L O2. Abdomen is soft and nontender. She has a chronic left sided abdominal wound that is packed with gauze from her prior AAA surgery. There is no sign of acute infection. This may be why she was not a candidate for PEG tube but I am not sure. Labs show WBC of 14.3. Hgb of 8.8 is slightly lower than previou previous so I did a rectal exam and her light brown stool is Hemoccult negative. BUN is 32, creatinine 1.7 which is baseline. Albumin is low 2.7 consistent with malnutrition. The patient does make urine and the nurse attempted to straight catheterize her but her bladder was completely empty. She was given IV 500 cc bolus. I discussed the case with Dr. Gallegos who states to set up TPN she needs admitted for a PICC line or central line placement. He also said only certain nursing homes are capable of administering TPN so this will need coordinated. I discussed the case with the hospitalist for admission. I have personally performed a face to face assessment of the patient and have reviewed the XIAO Note. I performed a substantive portion of the visit including all aspects of the following. My argueta findings include: History is [patient presents with generalized weakness and malnutrition. Concerned about needing TPN. Patient currently at a skilled nursing for rehab after undergoing a ruptured AAA repair. She subsequently went into renal failure. She currently on dialysis and her last treatment was yesterday. Patient having a hard time eating or drinking and is losing weight. She had a conversation with GI recently however it sounds like she had some sort of a vagal type response and was brought to the emergency department from [facility] office and was discharged back to the skilled nursing from the ER. No determination was made on TPN at that time.] Exam is [HEENT-PERRLA, EOMI. Cranial nerves II through XII grossly intact. TMs clear. No adenopathy. Patient very cachectic with dry mucous membranes Cardiovascular-regular rate and rhythm without murmur or ectopy Lungs-clear to auscultation, chest wall stable without crepitus or subcu emphysema Abdomen-normoactive bowel sounds, soft, nontender, no rebound or rigidity, no peritoneal signs. Extremities-intact ?4, normal range of motion, normal pulses, atraumatic] Medical Decison Making [ ] patient with generalized weakness and cachectic with difficulty achieving nutrition. Will obtain basic labs as well as urinalysis. Will discuss with GI or general surgery and hospitalist to evaluate for management of nutrition and hydration. Other additions or changes: [None] Lab Data Labs: Laboratory Results - last 24 hr 07/23/24 13:25 WBC 14.3 H RBC 3.34 L Hgb 8.8 L Hct 30.1 L MCV 90.1 MCH 26.3 L MCHC 29.2 L RDW Std Deviation 55.6 H RDW Coeff of Monika 17.2 H Plt Count 347 MPV 8.9 Immature Gran % (Auto) 2.000 H Neut % (Auto) 87.6 H Lymph % (Auto) 4.3 L [place] % (Auto) 5.7 Eos % (Auto) 0.1 Baso % (Auto) 0.3 Absolute Neuts (auto) 12.5 H Absolute Lymphs (auto) 0.61 L Nucleated RBC % 0 Sodium 137 Potassium 4.2 Chloride 98 Carbon Dioxide 29.0 Anion Gap 10 BUN 32 H Creatinine 1.7 H Estim Creat Clear Calc 26.32 Est GFR (MDRD) Non-Af 32 L BUN/Creatinine Ratio 19.5 Glucose 80 Calcium 8.7 Total Bilirubin 0.30 Direct Bilirubin 0.11 AST 23 ALT 13 Alkaline Phosphatase 50 Total Protein 6.3 Albumin 2.7 L Globulin 3.7 <Dr. Sadia Phoenix, DO - Last Filed: 07/23/24 15:48> MDM MDM Narrative Medical decision making narrative: History gathered from: Patient and her sister at bedside 64-year-old female with complex medical history including ruptured AAA surgery with subsequent surgery due to postop leak, COPD on chronic oxygen, ESRD on HD, malnutrition and debility presents requesting TPN. Weight loss and decreased oral intake is a chronic issue but is worsened over the last 1 to 2 days. Records show a visit with Dr. Gallegos on 07/18/2024 to evaluate this issue but she was not feeling well and asked to lie down and was sent here for evaluation so the GI visit was not completed. I have personally performed a face to face assessment of the patient and have reviewed the XIAO Note. I performed a substantive portion of the visit including all aspects of the following. My argueta findings include: History is [patient presents with generalized weakness and malnutrition. Concerned about needing TPN. Patient currently at a skilled nursing for rehab after undergoing a ruptured AAA repair. She subsequently went into renal failure. She currently on dialysis and her last treatment was yesterday. Patient having a hard time eating or drinking and is losing weight. She had a conversation with GI recently however it sounds like she had some sort of a vagal type response and was brought to the emergency department from [facility] office and was discharged back to the skilled nursing from the ER. No determination was made on TPN at that time.] Exam is [HEENT-PERRLA, EOMI. Cranial nerves II through XII grossly intact. TMs clear. No adenopathy. Patient very cachectic with dry mucous membranes Cardiovascular-regular rate and rhythm without murmur or ectopy Lungs-clear to auscultation, chest wall stable without crepitus or subcu emphysema Abdomen-normoactive bowel sounds, soft, nontender, no rebound or rigidity, no peritoneal signs. Extremities-intact ?4, normal range of motion, normal pulses, atraumatic] Medical Decison Making [ ] patient with generalized weakness and cachectic with difficulty achieving nutrition. Will obtain basic labs as well as urinalysis. Will discuss with GI or general surgery and hospitalist to evaluate for management of nutrition and hydration. Other additions or changes: [None] Lab Data Attestation: I reviewed the patient's lab results. Labs: Laboratory Results - last 24 hr 07/23/24 13:25 WBC 14.3 H RBC 3.34 L Hgb 8.8 L Hct 30.1 L MCV 90.1 MCH 26.3 L MCHC 29.2 L RDW Std Deviation 55.6 H RDW Coeff of Monika 17.2 H Plt Count 347 MPV 8.9 Immature Gran % (Auto) 2.000 H Neut % (Auto) 87.6 H Lymph % (Auto) 4.3 L [place] % (Auto) 5.7 Eos % (Auto) 0.1 Baso % (Auto) 0.3 Absolute Neuts (auto) 12.5 H Absolute Lymphs (auto) 0.61 L Nucleated RBC % 0 Sodium 137 Potassium 4.2 Chloride 98 Carbon Dioxide 29.0 Anion Gap 10 BUN 32 H Creatinine 1.7 H Estim Creat Clear Calc 26.32 Est GFR (MDRD) Non-Af 32 L BUN/Creatinine Ratio 19.5 Glucose 80 Calcium 8.7 Total Bilirubin 0.30 Direct Bilirubin 0.11 AST 23 ALT 13 Alkaline Phosphatase 50 Total Protein 6.3 Albumin 2.7 L Globulin 3.7 Discharge Plan Dx/Rx/DC Orders Clinical Impression: Malnutrition, Weakness, Acute dehydration Disposition Disposition: Acute Care Hospital [facility] Discharge Date/Time: 07/23/24 19:27
[2024-07-23 13:42] LABS: Absolute Lymphocyte Count 0.61 X10^3/uL (0.83-4.51); Absolute Neutrophil Count 12.5 X10^3/uL (2.0-7.7); Basophil# 0.04 X10^3/uL; Basophil% 0.3 % (0-1); Eosinophil# 0.02 X10^3/uL; Eosinophils% 0.1 % (0-5); Hematocrit 30.1 % (37-47); Hemoglobin 8.8 g/dL (12.0-15.0); Lymphocyte # 0.61 X10^3/ul (0.83-4.51); Lymphocyte % 4.3 % (19-41); Mean Corp Hgb Conc 29.2 g/dL (32-36); Mean Corpuscular Hgb 26.3 pg (27.0-32.0); Mean Corpuscular Volume 90.1 fL (81-99); Mean Platelet Vol. 8.9 fl (6.2-12.0); Monocyte# 0.82 X10^3/uL; Monocyte% 5.7 % (0-10); NRBC Flagged by Analyzer 0 % (0-5); Neutrophil # 12.51 X10^3/uL (2.7-7.7); Neutrophil % 87.6 % (47-70); Platelet Count 347 K/mm3 (150-450); RBC Distribution Width CV 17.2 % (11.6-14.6); RBC Distribution Width SD 55.6 fl (35.1-43.9); Red Blood Count 3.34 M/mm3 (4.2-5.4); White Blood Count 14.3 K/mm3 (4.4-11.0)
[2024-07-23] MEDS: 0.9% Normal Saline (500mL Bag) 500 ML 999 ML IV (13:47)
[2024-07-23 15:40] LABS: Calcium,Total 8.7 mg/dL (7.6-11.0); Chloride 98 mmol/L (98-107); Potassium 4.2 mmol/L (3.5-5.1); Sodium Level 137 mmol/L (136-145)
[2024-07-23 15:41] LABS: Anion Gap 10 (5-15)
[2024-07-23 15:59] LABS: BUN 32 mg/dL (4-19); BUN/Creat Ratio 19.5 RATIO (10-20); Creatinine, Serum 1.7 mg/dL (0.6-1.0); EST Glomerular Filtration Rate 32 (>60); Estimated Creatinine Clearance 26.32 ml/min; Glucose 80 mg/dL (70-99)
[2024-07-23 16:12] LABS: AST(SGOT) 23 U/L (<=31); Alanine Aminotransfer ALT/SGPT 13 U/L (<=34); Albumin, Serum 2.7 g/dL (3.4-4.8); Alkaline Phosphatase 50 U/L (35-104); Bilirubin, Direct 0.11 mg/dL (0.00-0.30); Globulin 3.7 g/dL (2.2-4.2); Protein, Total 6.3 g/dL (5.9-8.4)
--- NOTE | 2024-07-23 17:35 | PCM.HP.STD ---
[facility] - General General Date of Service: 07/23/24 Chief Complaint: requesting TPN. [facility] Narrative SCOTT OBREGON, is a 64 F who presents requesting. Patient has had a very eventful past several months where she was hospitalized from January 18 to February 24 with an endovascular leak from a AAA where she had a retroperitoneal edema hematoma, hemorrhagic shock, TUTU that led to permanent dialysis, pleural effusion. Patient was noted during that time to have a left-sided chylothorax and did have chest tubes placed. Additionally she did have C. difficile that required a long taper of vancomycin. Patient had debridement of an abdominal wound and did have a wound VAC placed. Wound VAC is subsequent removed but the wound has not healed since February. At some point someone told her that she should not have a PEG tube because of the proximity of his wound but they are not able to tell me who told her that. Patient has never had a PEG tube though was temporarily on TPN during one of her lengthy hospitalizations. Patient's acute kidney injury has led to chronic kidney disease and patient has maintained on dialysis every Monday last going to dialysis this past Monday. But given her lack of appetite, patient states that she gets abdominal pain and has early satiety and she is progressively gotten weaker during this time. They sought attention to see being evaluated for TPN because of what they were told by someone about having that. [facility]MERLY [facility], [facility]–1983 Medical History (Updated 07/23/24 @ 17:[address] 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 Gross hematuria Retroperitoneal hematoma Constipation, unspecified Raynaud's syndrome without gangrene Hypo-osmolality and hyponatremia Hyperlipidemia, unspecified Hypothyroidism, unspecified Anemia, unspecified Need for assistance with personal care Other malaise Other abnormalities of gait and mobility Unsteadiness on feet Muscle weakness (generalized) Other symbolic dysfunctions Dysphagia, oropharyngeal phase Essential (primary) hypertension Activated protein C resistance Unspecified severe protein-calorie malnutrition Acute respiratory failure with hypoxia Emphysema, unspecified Peripheral vascular disease, unspecified Enterocolitis due to Clostridium difficile, not specified as recurrent Acute kidney failure, unspecified Leakage of aortic (bifurcation) graft (replacement), subsequent encounter Abdominal aortic aneurysm, ruptured, unspecified Home Medications ?Medication ?Instructions ?Recorded ?Last Taken ?Type aspirin 81 mg tablet,delayed 81 mg PO DAILY 03/11/24 07/23/24 History release (Adult Aspirin Regimen) atorvastatin 20 mg tablet 20 mg PO QHS 03/11/24 07/22/24 History heparin (porcine) 5,000 unit/mL (1 5,000 unit subcut Q8H 03/11/24 07/23/24 History mL) injection cartridge metoprolol tartrate 25 mg tablet 25 mg PO BID 03/11/24 07/22/24 History ascorbic acid (vitamin C) 500 mg 500 mg PO DAILY 04/11/24 07/23/24 History capsule thiamine HCl (vitamin B1) 100 mg 100 mg PO BID 04/11/24 07/23/24 History tablet cyclobenzaprine 5 mg tablet 5 mg PO TID PRN MUSCLE SPASMS 06/05/24 07/10/24 History Lactobacillus rhamnosus GG 10 1 cap PO DAILY 07/18/24 07/23/24 History billion cell capsule (Culturelle) acetaminophen 325 mg tablet 650 mg PO Q4H PRN fever 07/18/24 Unknown History aluminum-magnesium hydroxide 200 30 ml PO Q4H PRN GI DISTRESS 07/18/24 Unknown History mg-200 mg/5 mL oral suspension amlodipine 5 mg tablet 5 mg PO QHS 07/18/24 07/22/24 History docusate sodium 100 mg tablet 100 mg PO BID PRN constipation 07/18/24 Unknown History dronabinol 2.5 mg capsule (Marinol) 2.5 mg PO BID 07/18/24 07/23/24 History famotidine 10 mg tablet 20 mg PO DAILY 07/18/24 07/23/24 History guaifenesin 100 mg/5 mL oral liquid 200 mg PO Q4H PRN cough 07/18/24 07/14/24 History levothyroxine 200 mcg tablet 200 mcg PO DAILY 07/18/24 07/23/24 History midodrine 10 mg tablet 10 mg PO DAILY PRN for SBP lower 07/18/24 Unknown History than 110 during dialysis tx mirtazapine 30 mg tablet 30 mg PO QHS 07/18/24 07/22/24 History ondansetron 4 mg disintegrating 4 mg PO DAILY PRN nausea and 07/18/24 Unknown History tablet vomiting oxycodone 5 mg tablet 5 mg PO Q6H PRN pain 07/18/24 07/22/24 History polyethylene glycol 3350 17 17 g PO QODAY 07/18/24 07/21/24 History gram/dose oral powder sennosides 8.6 mg-docusate sodium 1 tab-cap PO DAILY PRN constipation 07/18/24 Unknown History 50 mg tablet (Senna Plus) sertraline 25 mg tablet 25 mg PO DAILY 07/18/24 07/23/24 History vitamin B complex-vitamin C-folic 1 tab PO DAILY 07/18/24 07/23/24 History acid 0.8 mg tablet (Renal Vitamin) Allergy/AdvReac Type Severity Reaction Status Date / Time iodine Allergy Intermediate Nausea Verified 07/23/24 12:30 shellfish derived Allergy Intermediate Nausea Verified 07/23/24 12:30 Social History Smoking Status: Former smoker Tobacco: How many years used: 40 alcohol intake: former substance use type: does not use ROS ROS Narrative Chills. Abdominal pain with early satiety with eating. Weight loss. Has gangrene on her toes related with her hemorrhagic shock that she sustained. No plans for any surgery from that. All review of systems were negative except as mentioned above in the history of present illness and the other review of systems. Vital Signs Vital Signs Vital Signs: 07/23/24 12:29 07/23/24 12:36 07/23/24 13:29 Temperature 35.6 C L Temperature Source Temporal Pulse Rate 71 74 Respiratory Rate 13 14 Respiratory Pattern Normal Blood Pressure 147/83 H 165/78 H Blood Pressure Mean 104 107 Pulse Ox 93 Oxygen Delivery Method Room Air Room Air 07/23/24 14:00 07/23/24 15:00 07/23/24 16:00 Temperature Temperature Source Pulse Rate 74 73 75 Respiratory Rate 14 18 18 Respiratory Pattern Blood Pressure 165/78 H 156/87 H 156/104 H Blood Pressure Mean 107 110 121 Pulse Ox Oxygen Delivery Method 07/23/24 16:48 07/23/24 17:00 Temperature 35.6 C L Temperature Source Pulse Rate 75 74 Respiratory Rate 18 17 Respiratory Pattern Blood Pressure 156/104 H 156/86 H Blood Pressure Mean 121 109 Pulse Ox 93 95 Oxygen Delivery Method Room Air Weight Weight: 48.6 kg Body Mass Index (BMI) 14.5 Physical Exam Const alert and no apparent distress Constitutional Narrative: Cachectic. Temporal wasting. General Appearance: cooperative HEENT normocephalic and head/scalp atraumatic Eyes Eyes Narrative: No icterus Neck no lymphadenopathy Neck Narrative: No thyromegaly Resp normal respiratory effort, no retractions, no use of accessory muscles and clear to auscultation bilaterally Cardio regular rate, regular rhythm, S1 normal heart sound and S2 normal heart sound GI normal to inspection, nondistended, normoactive bowel sounds, soft to palpation, non-tender, non-distended and hepatosplenomegaly GI Narrative: Patient has open wound on left mid abdomen. Has a dressing overlying it was brought back and it was packed with dressing. No odor was appreciated. Did I did not remove the dressing. Extremity normal to inspection Extremity Narrative: Gangrene on the distal great toes bilaterally. Some cyanosis noted in the toes as well. Neuro oriented x3 and moves all extremities Sensorium / Orientation: awake, alert, oriented to person, oriented to place and oriented to time Psych Psych Narrative: Flat affect Results Lab / Micro Data Attestation: I reviewed the patient's lab results. 07/23/24 13:25 07/23/24 13:25 Labs: Laboratory Results - last 24 hr 07/23/24 13:25: WBC 14.3 H, RBC 3.34 L, Hgb 8.8 L, Hct 30.1 L, MCV 90.1, MCH 26.3 L, MCHC 29.2 L, RDW Std Deviation 55.6 H, RDW Coeff of Monika 17.2 H, Plt Count 347, MPV 8.9, Immature Gran % (Auto) 2.000 H, Neut % (Auto) 87.6 H, Lymph % (Auto) 4.3 L, [place] % (Auto) 5.7, Eos % (Auto) 0.1, Baso % (Auto) 0.3, Absolute Neuts (auto) 12.5 H, Absolute Lymphs (auto) 0.61 L, Nucleated RBC % 0, Sodium 137, Potassium 4.2, Chloride 98, Carbon Dioxide 29.0, Anion Gap 10, BUN 32 H, Creatinine 1.7 H, Estim Creat Clear Calc 26.32, Est GFR (MDRD) Non-Af 32 L, BUN/Creatinine Ratio 19.5, Glucose 80, Calcium 8.7, Total Bilirubin 0.30, Direct Bilirubin 0.11, AST 23, ALT 13, Alkaline Phosphatase 50, Total Protein 6.3, Albumin 2.7 L, Globulin 3.7 Micro: Microbiology 07/23/24 14:45 Stool Stool Occult Blood (TUYET) - Final Assessment & Plan Assessment/Plan (1) Unspecified severe protein-calorie malnutrition: PLAN: This been going on for months and patient is not been supplementing with oral intake. There was some mention that she should not have PEG tube because of her chronic left-sided abdominal wound. Not sure where that came from nor is the family. I will consult Dr. Gallegos of gastroenterology to see if the PEG tube would be feasible given that wound if not then other options reviewed be placing a Corpak/Dobbhoff or patient have a tunneled PICC line (being that she is on long-term dialysis) with TPN. I did explain the risks of TPN including infection given her malnourished immunocompromise state. Will consult nutrition as well. If GI does not feel that a PEG tube would be safe then we will need to consult general surgery for tunneled PICC line. I will also add pantoprazole this patient is cleaning abdominal pain and she certainly could have some gastritis given her multiple medical issues. (2) Open abdominal wall wound: PLAN: Ongoing since February and patient did have a wound VAC at that time. Will consult wound care for input and see if plastics would need to be involved or if she would need to have another wound VAC replaced. Is complicated by her severe malnutrition. (3) End stage renal disease: PLAN: Secondary to ATN from hemorrhagic shock and never had recovery. Patient on dialysis every Monday. Will consult nephrology. PLAN: Plan Chronic conditions Factor V Leiden deficiency hold off on her aspirin for now. Hypertension: Continue with amlodipine and metoprolol titrate. Hypothyroidism: Continue levothyroxine History of C. difficile: Does not appear to have any active symptoms at this time. Depression: Continue sertraline. 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 Expectant management at this time VTE prophylaxis with SCDs for now CODE STATUS: Addressed with the patient. Patient wished to be DNR Comfort Care arrest. She is okay with intubation. Case discussed with the patient's sister at bedside. Charges/Coding Visit Charges Inpatient E&M: 87448 Init Hosp L3
--- NOTE | 2024-07-23 18:43 | CASEMGMT ---
Care Management Face to Face with patient for initial transition planning/care coordination assessment in the ED. This headline writer introduced self and role at [facility]. Patient alert and oriented; patient's sister, Laisha Gonzalez, bedside. Patient willing to participate in assessment and is able to answer most questions appropriately. Care providers, pharmacy, and demographics verified. Admitting Diagnosis: Malnutrition, Weakness, Acute dehydration Other diagnosis history: complex history of factor V Leiden deficiency on anticoagulation, COPD on 2 to 3 L, ESRD on HD MWF PCP: Dr. Quispe ([place]) Specialists: Dr. Gallegos. Preferred Pharmacy: [facility] Insurance: [employer] Prescription Benefit: yes Living Will/HPOA: sisterJanette (we do not have document on file, just POA listed to Janette's name) LNOK: , Hi Living Arrangements: at [facility] Transportation: [facility] sets up transportation when necessary; family does not come in at all to transport DME/HHC: denies SNF/Rehab: [facility] Patient goals: Patient wishes to discharge back to [facility]. Patient denies any further needs or concerns at this time. Disposition Plan: admission to acute; RN CM/SW to follow for discharge planning needs that may arise. Nu Palma, FARM ADVISER, [employer]PERVISOR [employer]
[2024-07-23] MEDS: 0.9% Normal Saline (1000mL) 1,000 ML 150 ML IV (21:09)
[2024-07-23] MEDS: Menthol/Lanolin/Calamine/Znox 113 GM Tube 1 APPLIC TOPICAL (22:33)
[2024-07-23] MEDS: Metoprolol Tartrate 25 MG Tablet PO (22:35)
[2024-07-23] MEDS: Pantoprazole Sodium 40 MG Tablet PO (22:35)
[2024-07-23] MEDS: amLODIPine 5 MG Tablet PO (22:35)
[2024-07-23] MEDS: Atorvastatin Calcium 20 MG Tablet PO (22:35)
[2024-07-23] MEDS: Mirtazapine 30 MG Tablet PO (22:36)
[2024-07-23] MEDS: Acetaminophen 325 MG Tablet 650 MG PO (22:37)
--- NOTE | 2024-07-23 23:56 | EX.PCM.CON.G ---
HPI Consult Data Date of Consult: 07/23/24 HPI Narrative Reason for Consultation: Need for alternative means of nutrition HPI Narrative: SCOTT OBREGON, is a 64 F who presents to the ED with very poor nutrition, dehydration and worsening progressive weight loss of more than 50 pounds over the last 6 months. She is currently down to a BMI of 13. She was hospitalized from January 18 to February 24 with an endovascular leak from a AAA where she had a retroperitoneal edema hematoma, hemorrhagic shock, TUTU that led to permanent dialysis, pleural effusion. Patient was noted during that time to have a left-sided chylothorax and did have chest tubes placed. Additionally she did have C. difficile that required a long taper of vancomycin. Patient had debridement of an abdominal wound and did have a wound VAC placed. Wound VAC is subsequent removed but the wound has not healed since February. At some point someone told her that she should not have a PEG tube because of the proximity of his wound but they are not able to tell me who told her that. Patient has never had a PEG tube though was temporarily on TPN during one of her lengthy hospitalizations. Patient's acute kidney injury has led to chronic kidney disease and patient has maintained on dialysis every Monday last going to dialysis this past Monday. But given her lack of appetite, patient states that she gets abdominal pain and has early satiety and she is progressively gotten weaker during this time. They sought attention to see being evaluated for TPN because of what they were told by someone about having that. 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 Gross hematuria Retroperitoneal hematoma Constipation, unspecified Raynaud's syndrome without gangrene Hypo-osmolality and hyponatremia Hyperlipidemia, unspecified Hypothyroidism, unspecified Anemia, unspecified Need for assistance with personal care Other malaise Other abnormalities of gait and mobility Unsteadiness on feet Muscle weakness (generalized) Other symbolic dysfunctions Dysphagia, oropharyngeal phase Essential (primary) hypertension Activated protein C resistance Unspecified severe protein-calorie malnutrition Acute respiratory failure with hypoxia Emphysema, unspecified Peripheral vascular disease, unspecified Enterocolitis due to Clostridium difficile, not specified as recurrent Acute kidney failure, unspecified Leakage of aortic (bifurcation) graft (replacement), subsequent encounter Abdominal aortic aneurysm, ruptured, unspecified Home Medications ?Medication ?Instructions ?Recorded ?Last Taken ?Type aspirin 81 mg tablet,delayed 81 mg PO DAILY 03/11/24 07/23/24 History release (Adult Aspirin Regimen) atorvastatin 20 mg tablet 20 mg PO QHS 03/11/24 07/22/24 History heparin (porcine) 5,000 unit/mL (1 5,000 unit subcut Q8H 03/11/24 07/23/24 History mL) injection cartridge metoprolol tartrate 25 mg tablet 25 mg PO BID 03/11/24 07/22/24 History ascorbic acid (vitamin C) 500 mg 500 mg PO DAILY 04/11/24 07/23/24 History capsule thiamine HCl (vitamin B1) 100 mg 100 mg PO BID 04/11/24 07/23/24 History tablet cyclobenzaprine 5 mg tablet 5 mg PO TID PRN MUSCLE SPASMS 06/05/24 07/10/24 History Lactobacillus rhamnosus GG 10 1 cap PO DAILY 07/18/24 07/23/24 History billion cell capsule (Culturelle) acetaminophen 325 mg tablet 650 mg PO Q4H PRN fever 07/18/24 Unknown History aluminum-magnesium hydroxide 200 30 ml PO Q4H PRN GI DISTRESS 07/18/24 Unknown History mg-200 mg/5 mL oral suspension amlodipine 5 mg tablet 5 mg PO QHS 07/18/24 07/22/24 History docusate sodium 100 mg tablet 100 mg PO BID PRN constipation 07/18/24 Unknown History dronabinol 2.5 mg capsule (Marinol) 2.5 mg PO BID 07/18/24 07/23/24 History famotidine 10 mg tablet 20 mg PO DAILY 07/18/24 07/23/24 History guaifenesin 100 mg/5 mL oral liquid 200 mg PO Q4H PRN cough 07/18/24 07/14/24 History levothyroxine 200 mcg tablet 200 mcg PO DAILY 07/18/24 07/23/24 History midodrine 10 mg tablet 10 mg PO DAILY PRN for SBP lower 07/18/24 Unknown History than 110 during dialysis tx mirtazapine 30 mg tablet 30 mg PO QHS 07/18/24 07/22/24 History ondansetron 4 mg disintegrating 4 mg PO DAILY PRN nausea and 07/18/24 Unknown History tablet vomiting oxycodone 5 mg tablet 5 mg PO Q6H PRN pain 07/18/24 07/22/24 History polyethylene glycol 3350 17 17 g PO QODAY 07/18/24 07/21/24 History gram/dose oral powder sennosides 8.6 mg-docusate sodium 1 tab-cap PO DAILY PRN constipation 07/18/24 Unknown History 50 mg tablet (Senna Plus) sertraline 25 mg tablet 25 mg PO DAILY 07/18/24 07/23/24 History vitamin B complex-vitamin C-folic 1 tab PO DAILY 07/18/24 07/23/24 History acid 0.8 mg tablet (Renal Vitamin) Allergy/AdvReac Type Severity Reaction Status Date / Time iodine Allergy Intermediate Nausea Verified 07/24/24 13:53 shellfish derived Allergy Intermediate Nausea Verified 07/24/24 13:53 Social History Smoking Status: Former smoker Tobacco: How many years used: 40 alcohol intake: former substance use type: does not use ROS Constitutional Constitutional: Denies fatigue, fever(s), poor appetite, weight gain or weight loss Gastrointestinal Gastrointestinal: Denies belching, bloating, change in bowel habits, change in stool character, chewing difficulty, coffee ground emesis, constipation, cramping, diarrhea, dyspepsia, dysphagia, early satiety, excessive flatus, fecal incontinence, heartburn, hematemesis, hematochezia, hemorrhoids, loose stools, melena, nausea, odynophagia, rectal bleeding, tenesmus, vomiting or weight changes Physical Exam Const alert, oriented x3, no apparent distress and healthy appearing General Appearance: cooperative GI normal to inspection, nondistended, normoactive bowel sounds, soft to palpation, non-tender and non-distended Percussion: normal to percussion Rectal Exam: deferred Lab / Micro Data 07/24/24 06:51 07/24/24 06:51 Labs: Laboratory Results - last 24 hr 07/23/24 13:25: Sodium 137, Potassium 4.2, Chloride 98, Carbon Dioxide 29.0, Anion Gap 10, BUN 32 H, Creatinine 1.7 H, Estim Creat Clear Calc 26.32, Est GFR (MDRD) Non-Af 32 L, BUN/Creatinine Ratio 19.5, Glucose 80, Calcium 8.7, Total Bilirubin 0.30, Direct Bilirubin 0.11, AST 23, ALT 13, Alkaline Phosphatase 50, Total Protein 6.3, Albumin 2.7 L, Globulin 3.7 07/24/24 06:51: WBC 13.4 H, RBC 3.32 L, Hgb 8.8 L, Hct 29.6 L, MCV 89.2, MCH 26.5 L, MCHC 29.7 L, RDW Std Deviation 55.6 H, RDW Coeff of Monika 17.2 H, Plt Count 303, MPV 8.4, Immature Gran % (Auto) 1.700 H, Neut % (Auto) 86.7 H, Lymph % (Auto) 4.3 L, [place] % (Auto) 6.6, Eos % (Auto) 0.4, Baso % (Auto) 0.3, Absolute Neuts (auto) 11.6 H, Absolute Lymphs (auto) 0.57 L, Nucleated RBC % 0.1, Sodium 137, Potassium 4.0, Chloride Direct 100, Carbon Dioxide 26.3, Anion Gap 10, BUN 34 H, Creatinine 1.8 H, Estim Creat Clear Calc 22.25, Est GFR (MDRD) Non-Af 32 L, BUN/Creatinine Ratio 19.3, Glucose 68 L, Calcium 8.7, Total Bilirubin 0.32, AST 20, ALT 9, Alkaline Phosphatase 45, Total Protein 6.0, Albumin 2.4 L, Globulin 3.6, Albumin/Globulin Ratio 0.7 L Micro: Microbiology 07/23/24 14:45 Stool Stool Occult Blood (TUYET) - Final Assessment & Plan Assessment/Plan (1) Unspecified severe protein-calorie malnutrition: PLAN: 64-year-old with a very complicated medical history. I went over the possibility of placing a PEG tube. She does have an abdominal wound that is healing. We will try to place it safely as far away from her healing wound. If this is not possible then she will have to get a tunneled catheter for temporary TPN. (2) Open abdominal wall wound: PLAN: Ongoing since February and patient did have a wound VAC at that time. Is complicated by her severe malnutrition. (3) End stage renal disease: PLAN: Secondary to ATN from hemorrhagic shock and never had recovery. Patient on dialysis every Monday. Will consult nephrology. PLAN: Plan Chronic conditions Factor V Leiden deficiency hold off on her aspirin for now. Hypertension: Continue with amlodipine and metoprolol titrate. Hypothyroidism: Continue levothyroxine History of C. difficile: Does not appear to have any active symptoms at this time. Depression: Continue sertraline. 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 Expectant management at this time VTE prophylaxis with SCDs for now CODE STATUS: Addressed with the patient. Patient wished to be DNR Comfort Care arrest. She is okay with intubation. Case discussed with the patient's sister at bedside.
[2024-07-24] VITALS (12 sets, daily range): BP systolic 144–185; BP diastolic 71–94; PULSE 59–97; RESP 14–18; TEMP 36.3–36.9; O2SAT 96–100; BMI 12.9
[2024-07-24] MEDS: Levothyroxine 100 MCG Tablet 200 MCG PO (05:03)
[2024-07-24 07:46] LABS: Absolute Lymphocyte Count 0.57 X10^3/uL (0.83-4.51); Absolute Neutrophil Count 11.6 X10^3/uL (2.0-7.7); Basophil# 0.04 X10^3/uL; Basophil% 0.3 % (0-1); Eosinophil# 0.05 X10^3/uL; Eosinophils% 0.4 % (0-5); Hematocrit 29.6 % (37-47); Hemoglobin 8.8 g/dL (12.0-15.0); Lymphocyte # 0.57 X10^3/ul (0.83-4.51); Lymphocyte % 4.3 % (19-41); Mean Corp Hgb Conc 29.7 g/dL (32-36); Mean Corpuscular Hgb 26.5 pg (27.0-32.0); Mean Corpuscular Volume 89.2 fL (81-99); Mean Platelet Vol. 8.4 fl (6.2-12.0); Monocyte# 0.88 X10^3/uL; Monocyte% 6.6 % (0-10); NRBC Flagged by Analyzer 0.1 % (0-5); Neutrophil # 11.59 X10^3/uL (2.7-7.7); Neutrophil % 86.7 % (47-70); POSITIVE DIFFERENTIAL YES; Platelet Count 303 K/mm3 (150-450); RBC Distribution Width CV 17.2 % (11.6-14.6); RBC Distribution Width SD 55.6 fl (35.1-43.9); Red Blood Count 3.32 M/mm3 (4.2-5.4); White Blood Count 13.4 K/mm3 (4.4-11.0)
[2024-07-24] MEDS: Menthol/Lanolin/Calamine/Znox 113 GM Tube 1 APPLIC TOPICAL ×2 (08:55→20:19)
[2024-07-24] MEDS: Metoprolol Tartrate 25 MG Tablet PO ×2 (08:55→20:20)
--- NOTE | 2024-07-24 08:56 | PCM.PN.HOSP ---
Reason for Visit Reason for Visit: Unable to eat well Subjective Subjective Patient states that prior to her AAA repair in December she had a completely normal functional life. Since then she is lost 40 pounds and is unable to ambulate even independently. She has had a extremely complicated postoperative course to the point where she is now dialysis dependent. She states she was evaluated for PEG tube placement prior but unfortunately it was felt that general surgery should not do it here and she should have this done in a tertiary center. Since then she is continue to lose weight and have a poor appetite. She states she can eat does not get nauseated but she just does not have an appetite and get some intermittent abdominal pain and early satiety. Objective Data Objective Data Vital Signs: Vital Signs Temp Pulse Resp BP Pulse Ox O2 Del Method O2 Flow Rate 97.4 F L 59 L 18 160/71 H 100 Room Air 2 07/24/24 03:44 07/24/24 03:44 07/24/24 03:44 07/24/24 03:44 07/24/24 03:44 07/24/24 03:55 07/24/24 03:55 Oxygen Flow Rate (L/min) 2 Oxygen Delivery Method Room Air Weight: 43.5 kg Body Mass Index (BMI) 12.9 Intake & Output: Intake and Output for Last 24 Hours 07/22/24 07/23/24 07/24/24 23:59 23:59 23:59 Intake Total 700 / 700 1100 / 1100 Balance 700 / 700 1100 / 1100 Lab / Micro Data 07/24/24 06:51 07/24/24 06:51 Labs: Laboratory Results - last 24 hr 07/23/24 13:25: WBC 14.3 H, RBC 3.34 L, Hgb 8.8 L, Hct 30.1 L, MCV 90.1, MCH 26.3 L, MCHC 29.2 L, RDW Std Deviation 55.6 H, RDW Coeff of Monika 17.2 H, Plt Count 347, MPV 8.9, Immature Gran % (Auto) 2.000 H, Neut % (Auto) 87.6 H, Lymph % (Auto) 4.3 L, Wheeler % (Auto) 5.7, Eos % (Auto) 0.1, Baso % (Auto) 0.3, Absolute Neuts (auto) 12.5 H, Absolute Lymphs (auto) 0.61 L, Nucleated RBC % 0, Sodium 137, Potassium 4.2, Chloride 98, Carbon Dioxide 29.0, Anion Gap 10, BUN 32 H, Creatinine 1.7 H, Estim Creat Clear Calc 26.32, Est GFR (MDRD) Non-Af 32 L, BUN/Creatinine Ratio 19.5, Glucose 80, Calcium 8.7, Total Bilirubin 0.30, Direct Bilirubin 0.11, AST 23, ALT 13, Alkaline Phosphatase 50, Total Protein 6.3, Albumin 2.7 L, Globulin 3.7 07/24/24 06:51: WBC 13.4 H, RBC 3.32 L, Hgb 8.8 L, Hct 29.6 L, MCV 89.2, MCH 26.5 L, MCHC 29.7 L, RDW Std Deviation 55.6 H, RDW Coeff of Monika 17.2 H, Plt Count 303, MPV 8.4, Immature Gran % (Auto) 1.700 H, Neut % (Auto) 86.7 H, Lymph % (Auto) 4.3 L, Wheeler % (Auto) 6.6, Eos % (Auto) 0.4, Baso % (Auto) 0.3, Absolute Neuts (auto) 11.6 H, Absolute Lymphs (auto) 0.57 L, Nucleated RBC % 0.1 Micro: Microbiology 07/23/24 14:45 Stool Stool Occult Blood (TUYET) - Final Physical Exam Const alert, oriented x3 and no apparent distress; Negative for average body habitus or healthy appearing Constitutional Narrative: Cachectic appearing middle-aged, white female, appears older than stated age, appears nontoxic and comfortable at this time HEENT head/scalp atraumatic HEENT Narrative: Mallampati 1, no thrush, mucous membranes are dry, marked temporal wasting Head and Scalp: normocephalic Resp normal respiratory effort, no retractions, no use of accessory muscles and clear to auscultation bilaterally Resp Narrative: Diminished but clear Auscultation: Negative for rales, rhonchi or wheezes Cardio regular rate, regular rhythm, S1 normal heart sound, S2 normal heart sound, no murmurs, no rub, no gallops and no clicks GI normal to inspection, nondistended, normoactive bowel sounds, soft to palpation and non-tender GI Narrative: Scaphoid abdomen with prominent pelvic bones Extremity no clubbing, cyanosis or edema Extremity Narrative: Markedly reduced lean muscle mass Skin Skin Narrative: Wounds on bilateral great toes noted, stage I pressure ulcer on sacrum, abdominal wound noted with no signs of infection at this time Neuro oriented x3, moves all extremities and no focal motor deficits Neuro Narrative: Severe generalized weakness noted but no focal deficits Speech: speech normal Psych Psych Narrative: Affect is flat but patient interacts appropriately makes good eye contact and answers questions appropriately Assessment & Plan Assessment/Plan (1) Severe protein-calorie malnutrition: (2) End stage renal disease: (3) Leukocytosis: (4) Chronic anemia: PLAN: Plan Severe malnutrition -Patient severely underweight with temporal wasting and markedly decreased lean muscle mass -Appetite is poor with early satiety -Continue home Marinol -PEG tube to be placed today by gastroenterology -Will start trickle tube feeds tomorrow as long as patient is doing well as there is marked concern for refeeding -Monitor electrolytes closely and replace IV and orally as able -Will have to uptitrate tube feeds slowly over a few days -Continue continue p.o. diet and supplement with tube feed -GI consulted-appreciate input Leukocytosis -Mild and suspect reactive -Monitor closely Open abdominal wall wound -Per discussion with wound nurse she does not feel this will close any further -Will have patient follow-up with plastic surgery as an outpatient after we can improve her nutritional status -Would not recommend any surgical procedures at this time Bilateral toe wounds with dry gangrene -Wound care is following -appreciate input -Continue expectant management with outpatient follow-up with the wound center Stage I sacral pressure ulcer -No marked drainage or signs of infection -Continue preventative strategies for prevention of progressive wound End-stage renal disease on HD -This was a result of ATN from hemorrhagic shock and patient has not had any renal recovery -Continue dialysis MWF -Nephrology is following-appreciate input History of factor V Leiden -Restart aspirin tomorrow if stable GERD -Continue home famotidine -IV PPI for now Essential hypertension -Continue home amlodipine -Continue home metoprolol Hypothyroidism -Continue home levothyroxine Depression -Continue home sertraline -Continue home mirtazapine History of C. difficile -No current symptoms -Monitor closely DVT prophylaxis -continue SCDs for now -Transition to subcu heparin tomorrow if stable CODE STATUS -DNR CCA okay for short-term intubation per discussion on the time of admission Charges/Coding Visit Charges Inpatient E&M: 97643 Subs Hosp L2
--- NOTE | 2024-07-24 09:53 | CASEMGMT ---
Discharge Planning Updates sent to [facility]. Asked if precert is needed to return. Awaiting response. Joellen Billy DC Planning Asst.
--- NOTE | 2024-07-24 10:05 | CASEMGMT ---
Precert will be needed for pt to return to [facility]. SW updated. Joellen Billy DC Planning Asst.
[2024-07-24 10:11] LABS: ALB/GLOB Ratio 0.7 RATIO (0.9-2.4); AST(SGOT) 20 U/L (<=31); Alanine Aminotransfer ALT/SGPT 9 U/L (<=34); Albumin, Serum 2.4 g/dL (3.4-4.8); Alkaline Phosphatase 45 U/L (35-104); Anion Gap 10 (5-15); BUN 34 mg/dL (4-19); BUN/Creat Ratio 19.3 RATIO (10-20); Calcium 8.7 mg/dL (7.6-11.0); Carbon Dioxide 26.3 mmol/L (22.0-29.0); Chloride 100 mmol/L (96-108); Creatinine, Serum 1.8 mg/dL (0.6-1.0); EST Glomerular Filtration Rate 32 (>60); Estimated Creatinine Clearance 22.25 ml/min; Globulin 3.6 g/dL (2.2-4.2); Glucose 68 mg/dL (70-99); Sodium Level 137 mmol/L (133-145); Total Bilirubin 0.32 mg/dL (0.00-1.30)
--- NOTE | 2024-07-24 10:14 | WOUNDNOTE ---
wound photo: afua
--- NOTE | 2024-07-24 10:15 | WOUNDNOTE ---
wound photo: left lower abdomen
--- NOTE | 2024-07-24 10:15 | WOUNDNOTE ---
wound photo: left great toe
--- NOTE | 2024-07-24 10:16 | WOUNDNOTE ---
wound photo: right great toe
--- NOTE | 2024-07-24 10:55 | CASEMGMT ---
Advanced Directives [facility] asked to fax a copy of pts HC POA to [facility], attn: Nadege. Joellen Billy DC Planning Asst.
--- NOTE | 2024-07-24 13:01 | PCM.CONS.R ---
Assessment & Plan Assessment/Plan (1) End stage renal disease: PLAN: On hemodialysis Monday, Monday, Monday schedule. Last dialysis was Monday. In general her creatinine runs low because of extremely poor muscle mass. She had a 24-hour urine collection which did not show significant return of kidney function. Abdominal imaging with atrophic right kidney. Continue dialysis Monday, Monday, Monday schedule. Next dialysis today or tomorrow depending on her schedule for PEG tube placement. HPI Consult Data Date of Consult: 07/24/24 HPI Narrative Reason for Consultation: ESRD HPI Narrative: SCOTT OBREGON, is a 64 F who presents To the hospital for an elective PEG tube placement. Nephrology on consultation in view of ESRD. She is known to me from before. About 6 months ago she was admitted at the hospital with leaking abdominal aortic aneurysm, postoperative course was complicated by acute renal failure requiring dialysis. Subsequent workup showed atrophic right kidney likely from ischemia. She gets dialysis in [place] recently. Monday schedule. Has a tunneled catheter for access. She has been on TPN in the past. Currently admitted for a PEG tube. Somewhat cachectic. Does not offer any complaints. 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 Gross hematuria Retroperitoneal hematoma Constipation, unspecified Raynaud's syndrome without gangrene Hypo-osmolality and hyponatremia Hyperlipidemia, unspecified Hypothyroidism, unspecified Anemia, unspecified Need for assistance with personal care Other malaise Other abnormalities of gait and mobility Unsteadiness on feet Muscle weakness (generalized) Other symbolic dysfunctions Dysphagia, oropharyngeal phase Essential (primary) hypertension Activated protein C resistance Unspecified severe protein-calorie malnutrition Acute respiratory failure with hypoxia Emphysema, unspecified Peripheral vascular disease, unspecified Enterocolitis due to Clostridium difficile, not specified as recurrent Acute kidney failure, unspecified Leakage of aortic (bifurcation) graft (replacement), subsequent encounter Abdominal aortic aneurysm, ruptured, unspecified Home Medications ?Medication ?Instructions ?Recorded ?Last Taken ?Type aspirin 81 mg tablet,delayed 81 mg PO DAILY 03/11/24 07/23/24 History release (Adult Aspirin Regimen) atorvastatin 20 mg tablet 20 mg PO QHS 03/11/24 07/22/24 History heparin (porcine) 5,000 unit/mL (1 5,000 unit subcut Q8H 03/11/24 07/23/24 History mL) injection cartridge metoprolol tartrate 25 mg tablet 25 mg PO BID 03/11/24 07/22/24 History ascorbic acid (vitamin C) 500 mg 500 mg PO DAILY 04/11/24 07/23/24 History capsule thiamine HCl (vitamin B1) 100 mg 100 mg PO BID 04/11/24 07/23/24 History tablet cyclobenzaprine 5 mg tablet 5 mg PO TID PRN MUSCLE SPASMS 06/05/24 07/10/24 History Lactobacillus rhamnosus GG 10 1 cap PO DAILY 07/18/24 07/23/24 History billion cell capsule (Culturelle) acetaminophen 325 mg tablet 650 mg PO Q4H PRN fever 07/18/24 Unknown History aluminum-magnesium hydroxide 200 30 ml PO Q4H PRN GI DISTRESS 07/18/24 Unknown History mg-200 mg/5 mL oral suspension amlodipine 5 mg tablet 5 mg PO QHS 07/18/24 07/22/24 History docusate sodium 100 mg tablet 100 mg PO BID PRN constipation 07/18/24 Unknown History dronabinol 2.5 mg capsule (Marinol) 2.5 mg PO BID 07/18/24 07/23/24 History famotidine 10 mg tablet 20 mg PO DAILY 07/18/24 07/23/24 History guaifenesin 100 mg/5 mL oral liquid 200 mg PO Q4H PRN cough 07/18/24 07/14/24 History levothyroxine 200 mcg tablet 200 mcg PO DAILY 07/18/24 07/23/24 History midodrine 10 mg tablet 10 mg PO DAILY PRN for SBP lower 07/18/24 Unknown History than 110 during dialysis tx mirtazapine 30 mg tablet 30 mg PO QHS 07/18/24 07/22/24 History ondansetron 4 mg disintegrating 4 mg PO DAILY PRN nausea and 07/18/24 Unknown History tablet vomiting oxycodone 5 mg tablet 5 mg PO Q6H PRN pain 07/18/24 07/22/24 History polyethylene glycol 3350 17 17 g PO QODAY 07/18/24 07/21/24 History gram/dose oral powder sennosides 8.6 mg-docusate sodium 1 tab-cap PO DAILY PRN constipation 07/18/24 Unknown History 50 mg tablet (Senna Plus) sertraline 25 mg tablet 25 mg PO DAILY 07/18/24 07/23/24 History vitamin B complex-vitamin C-folic 1 tab PO DAILY 07/18/24 07/23/24 History acid 0.8 mg tablet (Renal Vitamin) Allergy/AdvReac Type Severity Reaction Status Date / Time iodine Allergy Intermediate Nausea Verified 07/23/24 12:30 shellfish derived Allergy Intermediate Nausea Verified 07/23/24 12:30 Social History Smoking Status: Former smoker Tobacco: How many years used: 40 alcohol intake: former substance use type: does not use ROS Review of Systems ROS Unobtainable: due to encephalopathy Physical Exam Narrative no obvious distress no pallor no icterus no JVD s1s2 no murmurs lungs clear abdomen soft no organomegaly no edema no cyanosis Lab / Micro Data 07/24/24 06:51 07/24/24 06:51 Labs: Laboratory Results - last 24 hr 07/23/24 13:25: WBC 14.3 H, RBC 3.34 L, Hgb 8.8 L, Hct 30.1 L, MCV 90.1, MCH 26.3 L, MCHC 29.2 L, RDW Std Deviation 55.6 H, RDW Coeff of Monika 17.2 H, Plt Count 347, MPV 8.9, Immature Gran % (Auto) 2.000 H, Neut % (Auto) 87.6 H, Lymph % (Auto) 4.3 L, [place] % (Auto) 5.7, Eos % (Auto) 0.1, Baso % (Auto) 0.3, Absolute Neuts (auto) 12.5 H, Absolute Lymphs (auto) 0.61 L, Nucleated RBC % 0, Sodium 137, Potassium 4.2, Chloride 98, Carbon Dioxide 29.0, Anion Gap 10, BUN 32 H, Creatinine 1.7 H, Estim Creat Clear Calc 26.32, Est GFR (MDRD) Non-Af 32 L, BUN/Creatinine Ratio 19.5, Glucose 80, Calcium 8.7, Total Bilirubin 0.30, Direct Bilirubin 0.11, AST 23, ALT 13, Alkaline Phosphatase 50, Total Protein 6.3, Albumin 2.7 L, Globulin 3.7 07/24/24 06:51: WBC 13.4 H, RBC 3.32 L, Hgb 8.8 L, Hct 29.6 L, MCV 89.2, MCH 26.5 L, MCHC 29.7 L, RDW Std Deviation 55.6 H, RDW Coeff of Monika 17.2 H, Plt Count 303, MPV 8.4, Immature Gran % (Auto) 1.700 H, Neut % (Auto) 86.7 H, Lymph % (Auto) 4.3 L, [place] % (Auto) 6.6, Eos % (Auto) 0.4, Baso % (Auto) 0.3, Absolute Neuts (auto) 11.6 H, Absolute Lymphs (auto) 0.57 L, Nucleated RBC % 0.1, Sodium 137, Potassium 4.0, Chloride Direct 100, Carbon Dioxide 26.3, Anion Gap 10, BUN 34 H, Creatinine 1.8 H, Estim Creat Clear Calc 22.25, Est GFR (MDRD) Non-Af 32 L, BUN/Creatinine Ratio 19.3, Glucose 68 L, Calcium 8.7, Total Bilirubin 0.32, AST 20, ALT 9, Alkaline Phosphatase 45, Total Protein 6.0, Albumin 2.4 L, Globulin 3.6, Albumin/Globulin Ratio 0.7 L Micro: Microbiology 07/23/24 14:45 Stool Stool Occult Blood (TUYET) - Final
[2024-07-24] MEDS: Dextrose 5%/0.9% NaCl 1,000 ML 100 ML IV (14:11)
--- NOTE | 2024-07-24 14:25 | PRE.ANES_ITS ---
ASA Classification* ASA Classification ASA Classification: 3 Assessment & Plan Anesthesia* Anesthesia Assessment Anesthesia Assessment: Discussed sedation and/or anesthesia options, risks, benefits, and alternatives with patient/parents/legal guardian/POA. Questions invited. The patient/parents/legal guardian/POA seems to understand and agrees to proceed with anesthesia plan. Reviewed the physical assessment, medical history, allergy history and patient home medications list prior to surgery/procedure/anesthetic and documented any changes. Performed airway and anesthesia risk assessments. Anesthesia Type Anesthesia Type: MAC History Source History Obtained from:: Patient and Chart Anesthesia Focused Assessment* Temperature: 97.9 F Pulse Rate: 64 Blood Pressure: 144/83 Respiratory Rate: 16 Pulse Ox: 96 Oxygen Delivery Method: Nasal Cannula Oxygen Flow Rate (L/min): 2 Airway Assessment Mouth opens: 2 cm Mallampati Score: II Teeth Condition: Intact and Missing (missing 2 teeth bottom back right) Focused Labs Anesthesia Preop lab: CBC WBC 13.4 K/mm3 (4.4-11.0) H 07/24/24 06:51 5 RBC 3.32 M/mm3 (4.2-5.4) L 07/24/24 06:51 07/24/24 Hgb 8.8 g/dL (12.0-15.0) L 07/24/24 06:51 07/24/24 Hct 29.6 % (37-47) L 07/24/24 06:51 07/24/24 Plt Count 303 K/mm3 (150-450) 07/24/24 06:51 07/24/24 CHEMISTRY Potassium 4.0 mmol/L (3.3-5.1) 07/24/24 06:51 07/24/24 Sodium 137 mmol/L (133-145) 07/24/24 06:51 07/24/24 Magnesium 2.0 mg/dL (1.6-2.6) 05/27/24 05:40 05/27/24 BUN 34 mg/dL (4-19) H 07/24/24 06:51 07/24/24 Creatinine 1.8 mg/dL (0.6-1.0) H 07/24/24 06:51 07/24/24 Glucose 68 mg/dL (70-99) L 07/24/24 06:51 07/24/24 TSH 0.679 uIU/mL (0.358-3.740) 06/25/24 06:20 05/30 01/20 COAG Pre-Assessment Diagnosis/Proposed Procedure Planned Operative Procedure(s): EGD with PEG Anesthesia History Anesthesia History - 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 When Was Last Pacemaker Check QUESTION #4 FULL TEXT: You/Your Family Experience fever (hyperthermia) with Anesthesia Last Oral Intake Last Oral intake: Last Oral Intake NPO since 08:00 07/24/24 12:51 Meds taken in AM with sips of Yes 07/24/24 12:51 water? Meds patient instructed to Metoprolol 25 mg 07/24/24 12:51 take am of surgery PONV PONV - pet adoption counselor: PONV - pet adoption counselor Female HX of Motion Sickness HX of N/V After Surgery Non-Smoker Duration of Surgery greater than 60 minutes Number of Risk Factors PONV Score Any additional information?: Yes Female: Yes HX of Motion Sickness: No HX of N/V After Surgery: No Non-Smoker: Yes Duration of Surgery greater than 60 minutes: No Number of Risk Factors: 2 PONV Score: Moderate Risk Height & Weight Height & Weight: Anesthesia: Height & Weight Height 6 ft 07/24/24 12:51 Weight: 43.5 kg 07/24/24 12:51 Body Mass Index (BMI) 12.9 07/24/24 12:51 Respiratory Assessment Respiratory Assessment - pet adoption counselor: Respiratory Tract Infection Hx - pet adoption counselor Hx Respiratory Tract Infection STOP Sleep Apnea STOP Sleep Apnea - pet adoption counselor: STOP Sleep Apnea - pet adoption counselor Hx Hypertension No 07/24/24 13:23 Hx Sleep Apnea No 07/23/24 19:43 CPAP BIPAP Do you snore loudly (louder Yes 07/23/24 19:43 than talking or can be heard Do you often feel tired/ No 07/23/24 19:43 fatigued/ sleepy during daytime? Has anyone observed you stop No 07/23/24 19:43 breathing during sleep? STOP Results Negative 07/23/24 19:43 QUESTION #5 FULL TEXT : Do you snore loudly (louder than talking or can be heard through closed doors)? 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 Specify any problems Hx of Preganancy in last 3 No 07/23/24 19:43 Months Nurse Filling Out Transfusion DREDICK 07/23/24 19:43 & Questions: Date: 07/23/24 07/23/24 19:43 Time: 19:43 07/23/24 19:43 Patient unable to answer at this time (ie. confused, unrespo /Reproduction History /Reproductive History - pet adoption counselor: /Reproductive Hx- pet adoption counselor Hx Now Gestational Age (in weeks): EDC: Hx Hx Para Hx Section SAB Active Medications Active Medications: Current Medications Generic Name Dose Route Start Last Admin Trade Name Freq PRN Reason Stop Dose Admin Acetaminophen 650 mg 07/23/24 20:16 07/23/24 22:37 Acetaminophen 325 Mg Tablet PO 650 mg Q4H PRN Administration fever Al Hydroxide/Mg Hydroxide 15 ml 07/23/24 20:30 Mag Hydrox/Al Hydrox/Simeth 30 Ml Udc PO Q4H PRN GI DISTRESS Amlodipine Besylate 5 mg 07/23/24 22:00 07/23/24 22:35 Amlodipine 5 Mg Tablet PO 5 mg QHS JORGE L Administration Protocol Ascorbic Acid 500 mg 07/24/24 10:00 07/24/24 08:53 Ascorbic Acid 500 Mg Tablet PO Not Given DAILY JORGE L Atorvastatin Calcium 20 mg 07/23/24 22:00 07/23/24 22:35 Atorvastatin Calcium 20 Mg Tablet PO 20 mg QHS [facility] Administration Calamine/Phenol 1 applic 07/23/24 22:00 07/24/24 08:55 Menthol/Lanolin/Calamine/Znox 113 Gm Tube TOPICAL 1 applic BID JORGE L Administration Protocol Cyclobenzaprine HCl 5 mg 07/23/24 20:16 Cyclobenzaprine Hcl 5 Mg Tablet PO TID PRN MUSCLE SPASMS Docusate Sodium 100 mg 07/23/24 20:26 Docusate Sodium 100 Mg Capsule PO BID PRN constipation Dronabinol 2.5 mg 07/24/24 17:00 Dronabinol 2.5 Mg Capsule PO 1200,1700 [facility] Famotidine 20 mg 07/24/24 10:00 07/24/24 08:53 Famotidine 20 Mg Tablet PO Not Given DAILY [facility] Guaifenesin 10 ml 07/23/24 20:16 Guaifenesin 10 Ml Udc (200mg/10ml) PO Q4H PRN cough Cefazolin Sodium 2 gm/ N/A 20 mls @ 400 mls/hr 07/24/24 14:30 IV 07/24/24 14:32 PREOP ONE Dextrose/Sodium Chloride 1,000 mls @ 100 mls/hr 07/24/24 13:25 07/24/24 14:11 Dextrose 5%/0.9% Nacl IV 07/25/24 09:24 100 mls/hr .Q10H JORGE L Administration Protocol Levothyroxine Sodium 200 mcg 07/24/24 06:00 07/24/24 05:03 Levothyroxine 100 Mcg Tablet PO 200 mcg DAILY@0600 JORGE L Administration Metoprolol Tartrate 25 mg 07/23/24 22:00 07/24/24 08:55 Metoprolol Tartrate 25 Mg Tablet PO 25 mg BID [facility] Administration Protocol Midodrine 10 mg 07/23/24 20:28 Midodrine Hcl 5 Mg Tablet PO DAILY PRN for SBP lower than 110 during dialysis tx Mirtazapine 30 mg 07/23/24 22:00 07/23/24 22:36 Mirtazapine 30 Mg Tablet PO 30 mg QHS [facility] Administration Nutritional Formula (Lactose Free) 120 ml 07/24/24 10:00 07/24/24 08:52 Ensure Plus High Protein 120 Ml Liquid PO Not Given 4X/DAY [facility] Ondansetron HCl 4 mg 07/23/24 20:16 Ondansetron Odt 4 Mg Tablet PO DAILY PRN nausea and vomiting Ondansetron HCl 4 mg 07/23/24 20:16 Ondansetron 4 Mg/2 Ml Vial IV Q8H PRN PRN NAUSEA/VOMITING Oxycodone HCl 5 mg 07/23/24 20:16 Oxycodone 5 Mg Tablet PO Q6H PRN pain 1-10 Pantoprazole Sodium 40 mg 07/23/24 22:00 07/24/24 08:53 Pantoprazole Sodium 40 Mg Tablet PO Not Given BID JORGE L Polyethylene Glycol 17 gm 07/23/24 22:00 07/23/24 22:34 Polyethylene Glycol 3350 17 Gm Packet PO Not Given QODAY@2200 [facility] Prochlorperazine Edisylate 5 mg 07/23/24 20:16 Prochlorperazine 10 Mg/2 Ml Vial IV Q4H PRN PRN Breakthrough nausea/vomiting Sertraline HCl 25 mg 07/24/24 10:00 07/24/24 08:53 Sertraline 50 Mg Tablet PO Not Given DAILY [facility] Sodium Hypochlorite 0 ml 07/24/24 22:00 Dakin's Winter Half Strength (=0.25%) TOPICAL BID [facility] Protocol [facility] History Chylothorax determined by thoracentesis 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) Open abdominal wall wound Factor 5 Leiden mutation, heterozygous 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 Gross hematuria Retroperitoneal hematoma Constipation, unspecified Raynaud's syndrome without gangrene Hypo-osmolality and hyponatremia Hyperlipidemia, unspecified Hypothyroidism, unspecified Anemia, unspecified Need for assistance with personal care Other malaise Other abnormalities of gait and mobility Unsteadiness on feet Muscle weakness (generalized) Other symbolic dysfunctions Dysphagia, oropharyngeal phase Essential (primary) hypertension Activated protein C resistance Unspecified severe protein-calorie malnutrition Acute respiratory failure with hypoxia Emphysema, unspecified Peripheral vascular disease, unspecified Enterocolitis due to Clostridium difficile, not specified as recurrent Acute kidney failure, unspecified Leakage of aortic (bifurcation) graft (replacement), subsequent encounter Abdominal aortic aneurysm, ruptured, unspecified Home Medications ?Medication ?Instructions ?Recorded ?Last Taken ?Type aspirin 81 mg tablet,delayed 81 mg PO DAILY 03/11/24 0 07/23/24 History release (Adult Aspirin Regimen) atorvastatin 20 mg tablet 20 mg PO QHS 03/11/24 History heparin (porcine) 5,000 unit/mL (1 5,000 unit subcut Q 8H 03/11/24 07/23/24 History mL) injection cartridge metoprolol tartrate 25 mg tablet 25 mg PO BID 03/11/24 07/22/24 History ascorbic acid (vitamin C) 500 mg 500 mg PO DAILY 04/1107/23/24 History capsule thiamine HCl (vitamin B1) 100 mg 100 mg PO BID 4 07/23/24 History tablet cyclobenzaprine 5 mg tablet 5 mg PO TID PRN MUSCLE SPA SMS 06/05/24 07/10/24 History Lactobacillus rhamnosus GG 10 1 cap PO DAILY 07/18/24 07/23/24 History billion cell capsule (Culturelle) acetaminophen 325 mg tablet 650 mg PO Q4H PRN fever Unknown History aluminum-magnesium hydroxide 200 30 ml PO Q4H PRN GI D ISTRESS 07/18/24 Unknown History mg-200 mg/5 mL oral suspension amlodipine 5 mg tablet 5 mg PO QHS 07/18/24 5 History docusate sodium 100 mg tablet 100 mg PO BID PRN consti pation 07/18/24 Unknown History dronabinol 2.5 mg capsule (Marinol) 2.5 mg PO BID 06/3007/23/24 History famotidine 10 mg tablet 20 mg PO DAILY 07/18/2406/30 History guaifenesin 100 mg/5 mL oral liquid 200 mg PO Q4H PRN cough 07/18/24 07/14/24 Hi story levothyroxine 200 mcg tablet 200 mcg PO DAILY 07/18/24 07/23/24 History midodrine 10 mg tablet 10 mg PO DAILY PRN for SBP l ower 07/18/24 Unknown History than 110 during dialysis tx mirtazapine 30 mg tablet 30 mg PO QHS 07/18/24 History ondansetron 4 mg disintegrating 4 mg PO DAILY PRN naus ea and 07/18/24 Unknown History tablet vomiting oxycodone 5 mg tablet 5 mg PO Q6H PRN pain 5 07/22/24 History polyethylene glycol 3350 17 17 g PO QODAY 07/18/24 History gram/dose oral powder sennosides 8.6 mg-docusate sodium 1 tab-cap PO DAILY P RN constipation 07/18/24 Unknown History 50 mg tablet (Senna Plus) sertraline 25 mg tablet 25 mg PO DAILY 07/18/2406/30 History vitamin B complex-vitamin C-folic 1 tab PO DAILY 07/1807/23/24 History acid 0.8 mg tablet (Renal Vitamin) Allergy/AdvReac Type Severity Reaction Status Date / Time iodine Allergy Intermediate Nausea Verified 07/24/24 13:53 shellfish derived Allergy Intermediate Nausea Verified 07/24/24 13:53 Social History Smoking Status: Former smoker Tobacco: How many years used: 40 alcohol intake: former substance use type: does not use Review of Systems (Anesthesia) ROS Narrative System reviewed and no additional complaints, except as documented. Physical Exam Narrative appears malnourished and underweight Const alert and oriented x3 Resp normal respiratory effort Resp Narrative: on 2L via NC
--- NOTE | 2024-07-24 14:57 | PN_ITS ---
Progress Note Patient has been NPO. She did not have dialysis today. She is for PEG tube placement today. Physical Exam Const alert and no apparent distress Constitutional Narrative: Cachectic. Temporal wasting. General Appearance: cooperative HEENT normocephalic and head/scalp atraumatic Eyes Eyes Narrative: No icterus Neck no lymphadenopathy Neck Narrative: No thyromegaly Resp normal respiratory effort, no retractions, no use of accessory muscles and clear to auscultation bilaterally Cardio regular rate, regular rhythm, S1 normal heart sound and S2 normal heart sound GI normal to inspection, nondistended, normoactive bowel sounds, soft to palpation, non-tender, non-distended and hepatosplenomegaly GI Narrative: Patient has open wound on left mid abdomen. Has a dressing overlying it was brought back and it was packed with dressing. No odor was appreciated. Did I did not remove the dressing. Extremity normal to inspection Extremity Narrative: Gangrene on the distal great toes bilaterally. Some cyanosis noted in the toes as well. Neuro oriented x3 and moves all extremities Sensorium / Orientation: awake, alert, oriented to person, oriented to place and oriented to time Psych Psych Narrative: Flat affect Assessment & Plan Assessment/Plan (1) Unspecified severe protein-calorie malnutrition: PLAN: 64-year-old with a very complicated medical history. I went over the possibility of placing a PEG tube. She does have an abdominal wound that is healing. We will try to place it safely as far away from her healing wound. If this is not possible then she will have to get a tunneled catheter for temporary TPN. (2) Open abdominal wall wound: PLAN: Ongoing since February and patient did have a wound VAC at that time. Is complicated by her severe malnutrition. (3) End stage renal disease: PLAN: Secondary to ATN from hemorrhagic shock and never had recovery. Patient on dialysis every Monday. Will consult nephrology. PLAN: Plan Chronic conditions * Factor V Leiden deficiency hold off on her aspirin for now. * Hypertension: Continue with amlodipine and metoprolol titrate. * Hypothyroidism: Continue levothyroxine * History of C. difficile: Does not appear to have any active symptoms at this time. * Depression: Continue sertraline. 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 Expectant management at this time VTE prophylaxis with SCDs for now CODE STATUS: Addressed with the patient. Patient wished to be DNR Comfort Care arrest. She is okay with intubation. Case discussed with the patient's sister at bedside. Visit Charges Inpatient E&M: 79778 Subs Hosp L2
--- NOTE | 2024-07-24 15:01 | CASEMGMT ---
Lyudmila from [facility] called requesting update on pt dc plan, gave update at this time.
[2024-07-24] MEDS: Cefazolin 2 GM in Syringe IV (15:07)
--- NOTE | 2024-07-24 15:51 | PCM.POST.ANE ---
Anesthesia: Postop Eval I Current Vital Signs Temperature: 97.3 F Pulse Rate: 97 Blood Pressure: 185/87 Respiratory Rate: 18 Pulse Ox: 97 Oxygen Delivery Method: Venturi Mask Oxygen Flow Rate (L/min): 8 Assessment Airway patent: Yes Spontaneous unlabored respirations: Yes Mental status: Calm nausea: No Vomiting: No Anesthesia Complication: No Fluid Hydration Crystalloid volume administer (ml): 300 Total IV fluid infused: 300 Progress Note Anesthesia document: Postop Eval 1 completed: Yes
--- NOTE | 2024-07-24 15:53 | OP.CCLET_ITS ---
07/24/2024 Ethan Rodriguez MD [address] [id number] Re : Upper GI endoscopy procedure for Myrtle Mercedes Dear Dr. Rodriguez This procedure was performed on Wednesday, July 24, 2024. My impressions and recommendations are as follows: Impressions : - Normal esophagus. - No gross lesions in the entire stomach. - Normal second portion of the duodenum. - An endoscopically removable PEG placement was successfully completed. - No specimens collected. Recommendations : - Please follow the post-PEG recommendations. - Continue present medications. My findings are described in the full procedure note, which is enclosed. If I can be of further assistance, please feel free to contact me at . Sincerely, Nick Gallegos, 07/24/2024 3:53:15 PM This report has been signed electronically.
--- NOTE | 2024-07-24 15:53 | OP.EGD_ITS ---
Patient Name: Myrtle Mercedes Procedure Date: 07/24/2024 2:55 PM Date of : 1960 Age: 64 Procedure: Upper GI endoscopy Indications: Place PEG to improve nutrition in patient with prolonged severe illness Providers: Nick Gallegos DO Medicines: Monitored Anesthesia Care Patient Profile: This is a 64 year old female. Refer to note in patient chart for documentation of history and physical. Patient has symptoms of acute dyspepsia and chronic nausea. Complications: No immediate complications. Procedure: Pre-Anesthesia Assessment: - Prior to the procedure, a History and Physical was performed, and patient medications and allergies were reviewed. The patient is competent. The risks and benefits of the procedure and the sedation options and risks were discussed with the patient. All questions were answered and informed consent was obtained. Patient identification and proposed procedure were verified by the physician in the pre-procedure area. Mental Status Examination: alert and oriented. Airway Examination: normal oropharyngeal airway and neck mobility. Respiratory Examination: clear to auscultation. CV Examination: normal. ASA Grade Assessment: II - A patient with mild systemic disease. After reviewing the risks and benefits, the patient was deemed in satisfactory condition to undergo the procedure. The anesthesia plan was to use monitored anesthesia care (MAC). Immediately prior to administration of medications, the patient was re-assessed for adequacy to receive sedatives. The heart rate, respiratory rate, oxygen saturations, blood pressure, adequacy of pulmonary ventilation, and response to care were monitored throughout the procedure. The physical status of the patient was re-assessed after the procedure. After obtaining informed consent, the endoscope was passed under direct vision. Throughout the procedure, the patient's blood pressure, pulse, and oxygen saturations were monitored continuously. The gastroscope was introduced through the mouth, and advanced to the second part of duodenum. The upper GI endoscopy was accomplished without difficulty. The patient tolerated the procedure well. Scope In: 3:13:28 PM Scope Out: 3:37:46 PM Total Procedure Duration Time 0 hours 24 minutes 18 seconds Findings: The examined esophagus was normal. No gross lesions were noted in the entire examined stomach. The patient was placed in the supine position for PEG placement. The stomach was insufflated to appose gastric and abdominal collins. A site was located in the cardia with excellent transillumination for placement. The abdominal wall was marked and prepped in a sterile manner. The area was anesthetized with 1 mL of 0.5% lidocaine. The trocar needle was introduced through the abdominal wall and into the stomach under direct endoscopic view. A snare was introduced through the endoscope and opened in the gastric lumen. The guide wire was passed through the trocar and into the open snare. The snare was closed around the guide wire. The endoscope and snare were removed, pulling the wire out through the mouth. A skin incision was made at the site of needle insertion. The endoscopically removable 20 Fr EndoVive Safety gastrostomy tube was lubricated. The G-tube was tied to the guide wire and pulled through the mouth and into the stomach. The trocar needle was removed, and the gastrostomy tube was pulled out from the stomach through the skin. The external bumper was attached to the gastrostomy tube, and the tube was cut to remove the guide wire. The final position of the gastrostomy tube was confirmed by relook endoscopy, and skin marking noted to be 4 cm at the external bumper. The final tension and compression of the abdominal wall by the PEG tube and external bumper were checked and revealed that the bumper was loose and lightly touching the skin. The feeding tube was capped, and the tube site cleaned and dressed. The second portion of the duodenum was normal. Impression: - Normal esophagus. - No gross lesions in the entire stomach. - Normal second portion of the duodenum. - An endoscopically removable PEG placement was successfully completed. - No specimens collected. Recommendation: - Please follow the post-PEG recommendations. - Continue present medications. Procedure Code(s): --- Professional --- 74803, Esophagogastroduodenoscopy, flexible, transoral; with directed placement of percutaneous gastrostomy tube CPT copyright 2021 [employer]. All rights reserved. The codes documented in this report are preliminary and upon outpatient coder review may be revised to meet current compliance requirements. Nick Gallegos DO 07/24/2024 3:53:15 PM This report has been signed electronically. Number of Addenda: 0 Note Initiated On: 07/24/2024 2:55 PM
--- NOTE | 2024-07-24 17:45 | POSTOPAN2_ITS ---
Anesthesia Postop Eval I Sum Postop Eval Completion status Anesthesia document: Postop Eval 1 completed: Yes Anesthesia Postop Eval I Summary Anesthesia Postop Eval I Summary: Anesthesia Postop Eval I: Assessment Summary Airway patent Yes 07/24/24 15:52 [email or web address] Spontaneous unlabored Yes 07/24/24 15:52 CHEF [email or web address] respirations Mental status Calm 07/24/24 15:52 CHEF [email or web address] nausea No 07/24/24 15:52 CHEF [email or web address].[email or web address] Vomiting No 07/24/24 15:52 CHEF [email or web address] Anesthesia Postop Eval I: Fluid Summary Crystalloid volume administer 300 07/24/24 15:52 CHEF [email or web address] (ml) Colloids volume administered ( ml) Blood Product volume administered (ml) Total IV fluid infused 300 07/24/24 15:52 CHEF [email or web address] Anesthesia Postop Eval I: Summary Notes Anesthesia Complication No 07/24/24 15:52 CHEF [email or web address] Anesthesia Complication Comment: Post-operative progress note Anesthesia: Postop Eval II Evaluation Mental status: Awake and Calm Pain Level: 3 nausea: No Vomiting: No Complications Anesthesia Complication: No
--- NOTE | 2024-07-24 17:45 | PCM.POSTANE2 ---
Anesthesia Postop Eval I Sum Postop Eval Completion status Anesthesia document: Postop Eval 1 completed: Yes Anesthesia Postop Eval I Summary Anesthesia Postop Eval I Summary: Anesthesia Postop Eval I: Assessment Summary Airway patent Yes 07/24/24 15:52 [employer] [email or web address] Spontaneous unlabored Yes 07/24/24 15:52 [employer] MANAGER.[email or web address] respirations Mental status Calm 07/24/24 15:52 [employer] MANAGER.[email or web address] nausea No 07/24/24 15:52 [employer] MANAGER.[email or web address] Vomiting No 07/24/24 15:52 [employer] MANAGER.[email or web address] Anesthesia Postop Eval I: Fluid Summary Crystalloid volume administer 300 07/24/24 15:52 [employer] MANAGER.[email or web address] (ml) Colloids volume administered ( ml) Blood Product volume administered (ml) Total IV fluid infused 300 07/24/24 15:52 [employer] MANAGER.[email or web address] Anesthesia Postop Eval I: Summary Notes Anesthesia Complication No 07/24/24 15:52 [employer] MANAGER.[email or web address] Anesthesia Complication Comment: Post-operative progress note Anesthesia: Postop Eval II Evaluation Mental status: Awake and Calm Pain Level: 3 nausea: No Vomiting: No Complications Anesthesia Complication: No
[2024-07-24] MEDS: Dronabinol 2.5 MG Capsule PO (18:15)
[2024-07-24] MEDS: oxyCODONE 5 MG Tablet PO (18:57)
[2024-07-24] MEDS: DAKIN'S SOL HALF STRENGTH (=0.25%) TOPICAL (20:18)
[2024-07-24] MEDS: Atorvastatin Calcium 20 MG Tablet PO (20:19)
[2024-07-24] MEDS: Pantoprazole Sodium 40 MG Tablet PO (20:20)
[2024-07-24] MEDS: amLODIPine 5 MG Tablet PO (20:20)
[2024-07-24] MEDS: Mirtazapine 30 MG Tablet PO (20:20)
[2024-07-25] VITALS (16 sets, daily range): BP systolic 104–280; BP diastolic 71–96; PULSE 63–78; RESP 14–18; TEMP 36.3–36.9; O2SAT 97–100; BMI 12.9; BMI 12.4
[2024-07-25] MEDS: Dextrose 5%/0.9% NaCl 1,000 ML 100 ML IV (00:13)
[2024-07-25] MEDS: Levothyroxine 100 MCG Tablet 200 MCG PO (06:19)
[2024-07-25 07:04] LABS: Hematocrit 27.3 % (37-47); Hemoglobin 8.2 g/dL (12.0-15.0); Mean Corpuscular Hgb 26.5 pg (27.0-32.0); Mean Corpuscular Volume 88.1 fL (81-99); Mean Platelet Vol. 8.8 fl (6.2-12.0); Platelet Count 317 K/mm3 (150-450); RBC Distribution Width CV 17.2 % (11.6-14.6); RBC Distribution Width SD 55.3 fl (35.1-43.9); White Blood Count 10.8 K/mm3 (4.4-11.0)
[2024-07-25] MEDS: DAKIN'S SOL HALF STRENGTH (=0.25%) TOPICAL ×2 (07:36→20:53)
[2024-07-25 07:40] LABS: Anion Gap 11 (5-15); BUN 43 mg/dL (4-19); BUN/Creat Ratio 20.2 RATIO (10-20); Calcium 8.4 mg/dL (7.6-11.0); Carbon Dioxide 23.9 mmol/L (22.0-29.0); Chloride 101 mmol/L (96-108); Creatinine, Serum 2.1 mg/dL (0.6-1.0); EST Glomerular Filtration Rate 26 (>60); Estimated Creatinine Clearance 19.07 ml/min; Glucose 101 mg/dL (70-99); Magnesium 1.9 mg/dL (1.5-2.2); Phosphorus 4.9 mg/dL (2.7-4.5); Potassium 4.1 mmol/L (3.3-5.1); Sodium Level 136 mmol/L (133-145)
[2024-07-25 09:06] LABS: M R Staph aureus DNA By PCR Negative (Negative); Probe Check PASS; Specimen Processing Control PASS; Staph aureus DNA By PCR NEGATIVE (Negative)
[2024-07-25] MEDS: PureFlow B 2K Dialysis Soln 1 BAG 6 BAG PF (10:11)
[2024-07-25] MEDS: 0.9% Normal Saline 1,000 ML IV.SOLN. 1000 ML OPERA.SITE (10:12)
[2024-07-25] MEDS: Heparin 10,000 UNITS/10 ML Vial IV (10:12)
[2024-07-25] MEDS: guaiFENesin 10 ML UDC (200MG/10ML) PO (10:21)
--- NOTE | 2024-07-25 13:00 | PN.RENAL_ITS ---
Subjective Subjective no new complaints Objective Data Objective Data Vital Signs: Vital Signs Temp Pulse Resp BP Pulse Ox O2 Del Method O2 Flow Rate 98.5 F 71 16 104/71 99 Nasal Cannula 2 07/25/24 12:00 07/25/24 12:00 07/25/24 12:00 07/25/24 12:00 07/25/24 12:00 07/25/24 12:00 07/25/24 12:00 Oxygen Flow Rate (L/min) 2 Oxygen Delivery Method Nasal Cannula Weight: 41.5 kg Body Mass Index (BMI) 12.4 Intake & Output: Intake and Output for Last 24 Hours 07/23/24 07/24/24 07/25/24 23:59 23:59 23:59 Intake Total 700 / 700 1120 / 1220 1500 / 1500 Output Total 2330 / 2330 Balance 700 / 700 1120 / 1220 -830 / -830 Medical Nutrition Assessment Dietitian: Malnutrition Criteria Met Start: 07/24/24 10:44 Freq: Status: Active Protocol: Document 07/25/24 09:57 SHAY (Rec: 07/25/24 09:57 [id number]) Nutrition Malnutrition Evidence of Yes Malnutrition Exists Malnutrition (severe Chronic ): Evidenced By Suboptimal Energy Intake (Severe),Weight Loss (Severe), Physical Changes (Severe) Intake Problem Increased Nutrient Needs (specify) Etiology calories/protein related to increased demand for healing Signs/Symptoms as evidenced by abdominal, right heel, and gluteal cleft wounds Status Active Problem Clinical Problem Chronic Disease or Condition Related Malnutrition Etiology related to suboptimal appetite and multiple medical problems over the past ~6 months Signs/Symptoms as evidenced by 30.9lbs (24.3%) unintentional weight loss in 4.5 months, PO intakes meeting <75% of estimated nutrition needs for about 6 months, and severe temporal muscle loss Status Active Problem Recommendation Dietitian Recommend advancing diet to Regular diet as tolerated Recommendations/ to optimize oral intakes. Changes Continue 120mL ensure plus high protein 4x daily when diet is advanced >clear liquid Recommend Pramod BID with meals to promote wound healing . Will initiate Jevity 1.5 at 10mL/hr x24 hours with 145 mL water flush q4 hours to provide 360kcal, 15.3 grams protein, and 1052mL water. Will monitor closely for refeeding syndrome and advance enteral nutrition on a day-by-day basis to safely reach goal rate. Lab / Micro Data 07/25/24 06:27 07/25/24 06:22 Labs: Laboratory Results - last 24 hr 07/25/24 06:22: Sodium 136, Potassium 4.1, Chloride Direct 101, Carbon Dioxide 23.9, Anion Gap 11, BUN 43 H, Creatinine 2.1 H, Estim Creat Clear Calc 19.07, E st GFR (MDRD) Non-Af 26 L, BUN/Creatinine Ratio 20.2 H, Glucose 101 H, Calcium 8.4, Phosphorus 4.9 H, Magnesium 1.9 07/25/24 06:27: WBC 10.8, RBC 3.10 L, Hgb 8.2 L, Hct 27.3 L, MCV 88.1, MCH 26.5 L, MCHC 30.0 L, RDW Std Deviation 55.3 H, RDW Coeff of Monika 17.2 H, Plt Count 317, MPV 8.8 07/25/24 07:30: S.aureus Protein A PCR NEGATIVE, MRSA (PCR) Negative Micro: Microbiology 07/23/24 14:45 Stool Stool Occult Blood (TUYET) - Final Physical Exam Narrative no obvious distress no pallor no icterus no JVD s1s2 no murmurs lungs clear abdomen soft no organomegaly no edema no cyanosis Assessment & Plan Assessment/Plan (1) End stage renal disease: PLAN: On hemodialysis Monday, Monday, Monday schedule. Last dialysis was Monday. In general her creatinine runs low because of extremely poor muscle mass. She had a 24-hour urine collection which did not show significant return of kidney function. Abdominal imaging with atrophic right kidney. Continue dialysis Monday, Monday, Monday schedule. HD today she is s/p PEG tube placement.
[2024-07-25] MEDS: oxyCODONE 5 MG Tablet PO ×2 (13:20→20:55)
[2024-07-25] MEDS: Menthol/Lanolin/Calamine/Znox 113 GM Tube 1 APPLIC TOPICAL ×2 (13:24→20:52)
[2024-07-25] MEDS: Pantoprazole Sodium 40 MG Tablet PO (13:36)
[2024-07-25] MEDS: Famotidine 20 MG Tablet PO (13:36)
[2024-07-25] MEDS: Ascorbic Acid 500 MG Tablet PO (13:37)
[2024-07-25] MEDS: Sertraline 50 MG Tablet 25 MG PO (13:37)
[2024-07-25] MEDS: Metoprolol Tartrate 25 MG Tablet PO ×2 (13:54→20:53)
[2024-07-25] MEDS: Dronabinol 2.5 MG Capsule PO ×2 (13:56→16:59)
--- NOTE | 2024-07-25 14:30 | CASEMGMT ---
Social Work SW received pt's HCPOA from [facility]. Pt names sister Janette Barrow as HCPOA. Copy placed on pt chart. RICKY Figueroa
[2024-07-25] MEDS: Jevity 1.5 1,000 ML 10 ML GT (15:43)
--- NOTE | 2024-07-25 16:42 | PN.HOSP_ITS ---
Reason for Visit Reason for Visit: Poor appetite/failure to thrive Subjective Subjective No issues overnight. Patient is currently on dialysis. Tolerated PEG tube placement well yesterday. Plan is to start low rate tube feeds at trickle and monitor closely for signs of refeeding. This was discussed with patient and she voices understanding. Objective Data Objective Data Vital Signs: Vital Signs Temp Pulse Resp BP Pulse Ox O2 Del Method O2 Flow Rate 97.8 F 63 16 163/72 H 100 Nasal Cannula 2 07/25/24 14:00 07/25/24 14:00 07/25/24 14:00 07/25/24 14:00 07/25/24 14:00 07/25/24 15:23 07/25/24 15:23 Oxygen Flow Rate (L/min) 2 Oxygen Delivery Method Nasal Cannula Weight: 41.5 kg Body Mass Index (BMI) 12.4 Intake & Output: Intake and Output for Last 24 Hours 07/23/24 07/24/24 07/25/24 23:59 23:59 23:59 Intake Total 700 / 700 1120 / 1220 2500 / 2500 Output Total 2355 / 2355 Balance 700 / 700 1120 / 1220 145 / 145 Medical Nutrition Assessment Dietitian: Malnutrition Criteria Met Start: 07/24/24 10:44 Freq: Status: Active Protocol: Document 07/25/24 09:57 SHAY (Rec: 07/25/24 09:57 [id number]) Nutrition Malnutrition Evidence of Yes Malnutrition Exists Malnutrition (severe Chronic ): Evidenced By Suboptimal Energy Intake (Severe),Weight Loss (Severe), Physical Changes (Severe) Intake Problem Increased Nutrient Needs (specify) Etiology calories/protein related to increased demand for healing Signs/Symptoms as evidenced by abdominal, right heel, and gluteal cleft wounds Status Active Problem Clinical Problem Chronic Disease or Condition Related Malnutrition Etiology related to suboptimal appetite and multiple medical problems over the past ~6 months Signs/Symptoms as evidenced by 30.9lbs (24.3%) unintentional weight loss in 4.5 months, PO intakes meeting <75% of estimated nutrition needs for about 6 months, and severe temporal muscle loss Status Active Problem Recommendation Dietitian Recommend advancing diet to Regular diet as tolerated Recommendations/ to optimize oral intakes. Changes Continue 120mL ensure plus high protein 4x daily when diet is advanced >clear liquid Recommend Pramod BID with meals to promote wound healing . Will initiate Jevity 1.5 at 10mL/hr x24 hours with 145 mL water flush q4 hours to provide 360kcal, 15.3 grams protein, and 1052mL water. Will monitor closely for refeeding syndrome and advance enteral nutrition on a day-by-day basis to safely reach goal rate. Lab / Micro Data 07/25/24 06:27 07/25/24 06:22 Labs: Laboratory Results - last 24 hr 07/25/24 06:22: Sodium 136, Potassium 4.1, Chloride Direct 101, Carbon Dioxide 23.9, Anion Gap 11, BUN 43 H, Creatinine 2.1 H, Estim Creat Clear Calc 19.07, E st GFR (MDRD) Non-Af 26 L, BUN/Creatinine Ratio 20.2 H, Glucose 101 H, Calcium 8.4, Phosphorus 4.9 H, Magnesium 1.9 07/25/24 06:27: WBC 10.8, RBC 3.10 L, Hgb 8.2 L, Hct 27.3 L, MCV 88.1, MCH 26.5 L, MCHC 30.0 L, RDW Std Deviation 55.3 H, RDW Coeff of Monika 17.2 H, Plt Count 317, MPV 8.8 07/25/24 07:30: S.aureus Protein A PCR NEGATIVE, MRSA (PCR) Negative Micro: Microbiology 07/25/24 07:30 Wound - Abdominal Gram Stain - Final 07/23/24 14:45 Stool Stool Occult Blood (TUYET) - Final Physical Exam Const alert, oriented x3 and no apparent distress; Negative for average body habitus, healthy appearing or well nourished Constitutional Narrative: Cachectic appearing middle-aged, white female, appears older than stated age, lying under multiple blankets currently on dialysis, appears nontoxic and comfortable currently General Appearance: cooperative HEENT normocephalic and head/scalp atraumatic HEENT Narrative: Dentition is poor, Mallampati is 1, no thrush Resp normal respiratory effort, no retractions, no use of accessory muscles and clear to auscultation bilaterally Resp Narrative: Diminished but clear Auscultation: Negative for rales, rhonchi or wheezes Cardio regular rate, regular rhythm, S1 normal heart sound, S2 normal heart sound, no murmurs, no rub, no gallops and no clicks GI normal to inspection, nondistended, normoactive bowel sounds, soft to palpation and non-tender GI Narrative: Scaphoid abdomen with prominent pelvic bones, PEG tube in place left upper quadrant, dressing over left abdominal wound Extremity no clubbing, cyanosis or edema Extremity Narrative: Markedly reduced lean muscle mass Neuro oriented x3, moves all extremities and no focal motor deficits Neuro Narrative: Severe generalized weakness noted but no focal deficits Speech: speech normal Psych Psych Narrative: Affect is flat but patient interacts appropriately makes good eye contact and answers questions appropriately Assessment & Plan Assessment/Plan (1) Severe protein-calorie malnutrition: (2) End stage renal disease: (3) Leukocytosis: (4) Chronic anemia: PLAN: Plan Severe malnutrition -Patient severely underweight with temporal wasting and markedly decreased lean muscle mass -Appetite is poor with early satiety -Continue home Marinol -PEG tube placed by gastroenterology on 07/24/2024 -Trickle tube feeds to start today at 10 cc an hour per discussion with dietitian and will slowly ramp up and watch closely for refeeding -If electrolytes stable tomorrow will advance by 10 cc -Continue continue p.o. diet and supplement with tube feed -GI following-appreciate input Leukocytosis -Resolved Open abdominal wall wound -Per discussion with wound nurse she does not feel this will close any further -Will have patient follow-up with plastic surgery as an outpatient after we can improve her nutritional status -Would not recommend any surgical procedures at this time Bilateral toe wounds with dry gangrene -Wound care is following -appreciate input -Continue expectant management with outpatient follow-up with the wound center Stage I sacral pressure ulcer -No marked drainage or signs of infection -Continue preventative strategies for prevention of progressive wound End-stage renal disease on HD -This was a result of ATN from hemorrhagic shock and patient has not had any renal recovery -Continue dialysis MWF -Nephrology is following-appreciate input History of factor V Leiden -Restart home aspirin GERD -Continue home famotidine -Stop PPI as there was no significant esophagitis noted on EGD Essential hypertension -Continue home amlodipine -Continue home metoprolol Hypothyroidism -Continue home levothyroxine Depression -Continue home sertraline -Continue home mirtazapine History of C. difficile -No current symptoms -Monitor closely DVT prophylaxis -Start subcu heparin 5000 units twice daily CODE STATUS -DNR CCA okay for short-term intubation per discussion on the time of admission Charges/Coding Visit Charges Inpatient E&M: 20583 Subs Hosp L2
[2024-07-25] MEDS: Heparin Injection (Vial) 5,000 UNIT/ML VIAL 5000 UNIT SC (20:52)
[2024-07-25] MEDS: Atorvastatin Calcium 20 MG Tablet PO (20:53)
[2024-07-25] MEDS: Mirtazapine 30 MG Tablet PO (20:55)
[2024-07-25] MEDS: amLODIPine 5 MG Tablet PO (20:55)
[2024-07-25] MEDS: Thiamine Hydrochloride 100 MG Tablet PO (20:56)
[2024-07-26] VITALS (13 sets, daily range): BP systolic 113–280; BP diastolic 63–96; PULSE 67–77; RESP 16–18; TEMP 36.3–36.8; O2SAT 93–100; BMI 12.4; BMI 11.9
[2024-07-26] MEDS: Levothyroxine 100 MCG Tablet 200 MCG PO (06:03)
[2024-07-26 09:12] LABS: Magnesium 1.9 mg/dL (1.5-2.2); Phosphorus 3.9 mg/dL (2.7-4.5)
--- NOTE | 2024-07-26 09:20 | NURSING ---
In To see pt. Getting Dialysis. Marva Arreaga RN in room with pt and got full set of vitals and stated that they were charted.
[2024-07-26 09:44] LABS: Anion Gap 10 (5-15); BUN 32 mg/dL (4-19); BUN/Creat Ratio 19.9 RATIO (10-20); Calcium 8.6 mg/dL (7.6-11.0); Carbon Dioxide 22.9 mmol/L (22.0-29.0); Chloride 98 mmol/L (96-108); EST Glomerular Filtration Rate 36 (>60); Estimated Creatinine Clearance 23.88 ml/min; Glucose 66 mg/dL (70-99); Potassium 4.1 mmol/L (3.3-5.1); Sodium Level 131 mmol/L (133-145)
[2024-07-26] MEDS: 0.9% Normal Saline 1,000 ML IV.SOLN. 1000 ML OPERA.SITE (10:29)
[2024-07-26] MEDS: PureFlow B 2K Dialysis Soln 1 BAG 6 BAG PF (10:30)
[2024-07-26] MEDS: Heparin 10,000 UNITS/10 ML Vial IV (10:30)
[2024-07-26] MEDS: Thiamine Hydrochloride 100 MG Tablet PO ×2 (11:45→16:28)
[2024-07-26] MEDS: Aspirin E.C. 81 MG Tablet PO (11:45)
[2024-07-26] MEDS: Menthol/Lanolin/Calamine/Znox 113 GM Tube 1 APPLIC TOPICAL ×2 (11:46→20:08)
[2024-07-26] MEDS: Ascorbic Acid 500 MG Tablet PO (11:46)
[2024-07-26] MEDS: Famotidine 20 MG Tablet PO (11:46)
[2024-07-26] MEDS: Metoprolol Tartrate 25 MG Tablet PO ×2 (11:46→20:07)
[2024-07-26] MEDS: Sertraline 50 MG Tablet 25 MG PO (11:47)
[2024-07-26] MEDS: Heparin Injection (Vial) 5,000 UNIT/ML VIAL 5000 UNIT SC ×2 (11:50→20:08)
[2024-07-26] MEDS: Dronabinol 2.5 MG Capsule PO ×2 (11:59→16:28)
[2024-07-26] MEDS: Acetaminophen 325 MG Tablet 650 MG PO (12:29)
[2024-07-26] MEDS: DAKIN'S SOL HALF STRENGTH (=0.25%) TOPICAL ×2 (12:31→20:09)
--- NOTE | 2024-07-26 15:33 | PCM.PN.REN ---
Subjective Subjective no new events Objective Data Objective Data Vital Signs: Vital Signs Temp Pulse Resp BP Pulse Ox O2 Del Method O2 Flow Rate 97.7 F L 67 16 171/83 H 94 Nasal Cannula 2 07/26/24 11:30 07/26/24 11:46 07/26/24 11:30 07/26/24 11:46 07/26/24 14:42 07/26/24 14:42 07/26/24 14:42 Oxygen Flow Rate (L/min) 2 Oxygen Delivery Method Nasal Cannula Weight: 40 kg Body Mass Index (BMI) 11.9 Intake & Output: Intake and Output for Last 24 Hours 07/24/24 07/25/24 07/26/24 23:59 23:59 23:59 Intake Total 1120 / 1220 2700 / 3150 1436 / 1436 Output Total 4685 / 4685 1710 / 1710 Balance 1120 / 1220 -1985 / -1535 -274 / -274 Medical Nutrition Assessment Dietitian: Malnutrition Criteria Met Start: 07/24/24 10:44 Freq: Status: Active Protocol: Document 07/26/24 14:02 LEAH (Rec: 07/26/24 14:02 LEAH [id number]) Nutrition Malnutrition Evidence of Yes Malnutrition Exists Malnutrition (severe Chronic ): Evidenced By Suboptimal Energy Intake (Severe),Weight Loss (Severe), Physical Changes (Severe) Intake Problem Increased Nutrient Needs (specify) Etiology calories/protein related to increased demand for healing Signs/Symptoms as evidenced by abdominal, right heel, and gluteal cleft wounds Status Active Problem Clinical Problem Chronic Disease or Condition Related Malnutrition Etiology related to suboptimal appetite and multiple medical problems over the past ~6 months Signs/Symptoms as evidenced by 30.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 BMI = 12.0 Status Active Problem Recommendation Dietitian Recommend advancing diet to Regular diet as tolerated Recommendations/ to optimize oral intakes. Changes Continue 120mL ensure plus high protein 4x daily when diet is advanced >clear liquid Provide ensure clear w/ meals (prefers over Pramod bid) Will increase Jevity 1.5 to 20mL/hr with 145 mL water flush q4 hours to provide 720kcal, 30.6 grams protein/ day. Will monitor closely for refeeding syndrome and advance enteral nutrition on a day-by-day basis to safely reach goal rate. Lab / Micro Data 07/25/24 06:27 07/26/24 07:15 Labs: Laboratory Results - last 24 hr 07/26/24 07:15: Sodium 131 L, Potassium 4.1, Chloride Direct 98, Carbon Dioxide 22.9, Anion Gap 10, BUN 32 H, Creatinine 1.60 H, Estim Creat Clear Calc 23.88, Est GFR (MDRD) Non-Af 36 L, BUN/Creatinine Ratio 19.9, Glucose 66 L, Calcium 8.6, Phosphorus 3.9, Magnesium 1.9 Micro: Microbiology 07/25/24 07:30 Wound - Abdominal Gram Stain - Final 07/25/24 07:30 Wound - Abdominal Wound Culture - Preliminary No growth-Final to follow 07/23/24 14:45 Stool Stool Occult Blood (TUYET) - Final Physical Exam Narrative no obvious distress no pallor no icterus no JVD s1s2 no murmurs lungs clear abdomen soft no organomegaly no edema no cyanosis Assessment & Plan Assessment/Plan (1) End stage renal disease: PLAN: On hemodialysis Monday, Monday, Monday schedule. Last dialysis was Monday. In general her creatinine runs low because of extremely poor muscle mass. She had a 24-hour urine collection which did not show significant return of kidney function. Abdominal imaging with atrophic right kidney. HD as per schedule she is s/p PEG tube placement.
--- NOTE | 2024-07-26 17:16 | PN.HOSP_ITS ---
Reason for Visit Reason for Visit: Failure to thrive/severe malnutrition Subjective Subjective Patient states she is very cold. Currently receiving dialysis states its fairly typical for her. Has tolerated tube feed well thus far. No significant electrolyte abnormalities with current rate and plans for up titration Objective Data Objective Data Vital Signs: Vital Signs Temp Pulse Resp BP Pulse Ox O2 Del Method O2 Flow Rate 97.9 F 68 16 136/77 H 96 Nasal Cannula 2 07/26/24 16:00 07/26/24 16:00 07/26/24 16:00 07/26/24 16:00 07/26/24 16:00 07/26/24 16:00 07/26/24 16:00 Oxygen Flow Rate (L/min) 2 Oxygen Delivery Method Nasal Cannula Weight: 40 kg Body Mass Index (BMI) 11.9 Intake & Output: Intake and Output for Last 24 Hours 07/24/24 07/25/24 07/26/24 23:59 23:59 23:59 Intake Total 1120 / 1220 2700 / 3150 1436 / 1436 Output Total 4685 / 4685 1710 / 1710 Balance 1120 / 1220 -1985 / -1535 -274 / -274 Medical Nutrition Assessment Dietitian: Malnutrition Criteria Met Start: 07/24/24 10:44 Freq: Status: Active Protocol: Document 07/26/24 14:02 LEAH (Rec: 07/26/24 14:02 LEAH [id number]) Nutrition Malnutrition Evidence of Yes Malnutrition Exists Malnutrition (severe Chronic ): Evidenced By Suboptimal Energy Intake (Severe),Weight Loss (Severe), Physical Changes (Severe) Intake Problem Increased Nutrient Needs (specify) Etiology calories/protein related to increased demand for healing Signs/Symptoms as evidenced by abdominal, right heel, and gluteal cleft wounds Status Active Problem Clinical Problem Chronic Disease or Condition Related Malnutrition Etiology related to suboptimal appetite and multiple medical problems over the past ~6 months Signs/Symptoms as evidenced by 30.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 BMI = 12.0 Status Active Problem Recommendation Dietitian Recommend advancing diet to Regular diet as tolerated Recommendations/ to optimize oral intakes. Changes Continue 120mL ensure plus high protein 4x daily when diet is advanced >clear liquid Provide ensure clear w/ meals (prefers over Pramod bid) Will increase Jevity 1.5 to 20mL/hr with 145 mL water flush q4 hours to provide 720kcal, 30.6 grams protein/ day. Will monitor closely for refeeding syndrome and advance enteral nutrition on a day-by-day basis to safely reach goal rate. Lab / Micro Data 07/25/24 06:27 07/26/24 07:15 Labs: Laboratory Results - last 24 hr 07/26/24 07:15: Sodium 131 L, Potassium 4.1, Chloride Direct 98, Carbon Dioxide 22.9, Anion Gap 10, BUN 32 H, Creatinine 1.60 H, Estim Creat Clear Calc 23.88, E st GFR (MDRD) Non-Af 36 L, BUN/Creatinine Ratio 19.9, Glucose 66 L, Calcium 8.6, Phosphorus 3.9, Magnesium 1.9 Micro: Microbiology 07/25/24 07:30 Wound - Abdominal Gram Stain - Final 07/25/24 07:30 Wound - Abdominal Wound Culture - Preliminary No growth-Final to follow 07/23/24 14:45 Stool Stool Occult Blood (TUYET) - Final Physical Exam Const alert, oriented x3 and no apparent distress; Negative for average body habitus, healthy appearing or well nourished Constitutional Narrative: Cachectic appearing middle-aged, white female, appears older than stated age, under multiple wakens on dialysis, appears comfortable, does not look toxic, dialysis nurse at bedside General Appearance: cooperative HEENT normocephalic and head/scalp atraumatic HEENT Narrative: Mallampati 1, no thrush Resp normal respiratory effort, no retractions, no use of accessory muscles and clear to auscultation bilaterally Resp Narrative: Diminished but clear Auscultation: Negative for rales, rhonchi or wheezes Cardio regular rate, regular rhythm, S1 normal heart sound, S2 normal heart sound, no murmurs, no rub, no gallops and no clicks GI normal to inspection, nondistended, normoactive bowel sounds and soft to palpation GI Narrative: Scaphoid abdomen with prominent pelvic bones, PEG tube in place left upper quadrant, dressing over left abdominal wound, mild tenderness in area of PEG tube Extremity no clubbing, cyanosis or edema Extremity Narrative: Markedly reduced lean muscle mass Neuro oriented x3, moves all extremities and no focal motor deficits Neuro Narrative: Severe generalized weakness noted but no focal deficits Speech: speech normal Psych Psych Narrative: Affect is flat but patient interacts appropriately makes good eye contact and answers questions appropriately Assessment & Plan Assessment/Plan (1) Severe protein-calorie malnutrition: (2) End stage renal disease: (3) Leukocytosis: (4) Chronic anemia: PLAN: Plan Severe malnutrition -Patient severely underweight with temporal wasting and markedly decreased lean muscle mass -Appetite is poor with early satiety -Continue home Marinol -PEG tube placed by gastroenterology on 07/24/2024 -No signs of refeeding as of yet -Electrolytes are stable so we will advance to 20 cc with goal rate of 50 cc and slowly increase as electrolytes allow -Continue continue p.o. diet and supplement with tube feed -GI following-appreciate input Open abdominal wall wound -Per discussion with wound nurse she does not feel this will close any further -Cultures are negative -Will have patient follow-up with plastic surgery as an outpatient after we can improve her nutritional status -Would not recommend any surgical procedures at this time Bilateral toe wounds with dry gangrene -Wound care is following -appreciate input -Continue expectant management with outpatient follow-up with the wound center Stage I sacral pressure ulcer -No marked drainage or signs of infection -Continue preventative strategies for prevention of progressive wound End-stage renal disease on HD -This was a result of ATN from hemorrhagic shock and patient has not had any renal recovery -Continue dialysis MWF -Nephrology is following-appreciate input Chronic anemia secondary to renal disease -Appears to be stable Hyponatremia -Due for dialysis -Like related to this -Repeat lab in a.m. History of factor V Leiden -Continue home aspirin GERD -Continue home famotidine Essential hypertension -Continue home amlodipine -Continue home metoprolol Hypothyroidism -Continue home levothyroxine Depression -Continue home sertraline -Continue home mirtazapine History of C. difficile -No current symptoms -Monitor closely DVT prophylaxis -Continue subcu heparin CODE STATUS -DNR CCA okay for short-term intubation Charges/Coding Visit Charges Inpatient E&M: 60309 Subs Hosp L2
[2024-07-26] MEDS: guaiFENesin 10 ML UDC (200MG/10ML) PO (17:39)
--- NOTE | 2024-07-26 18:13 | PCM.PN.BLA ---
Progress Note Patient reports feeling comfortable with their PEG tube placement. No complaints of pain, discomfort, or leakage around the stoma site. No issues with feeding tolerance, nausea, or vomiting? Physical Exam Const alert, oriented x3 and no apparent distress; Negative for average body habitus, healthy appearing or well nourished General Appearance: cooperative HEENT normocephalic and head/scalp atraumatic HEENT Narrative: Mallampati 1, no thrush Resp normal respiratory effort, no retractions, no use of accessory muscles and clear to auscultation bilaterally Resp Narrative: Diminished but clear Auscultation: Negative for rales, rhonchi or wheezes Cardio regular rate, regular rhythm, S1 normal heart sound, S2 normal heart sound, no murmurs, no rub, no gallops and no clicks GI normal to inspection, nondistended, normoactive bowel sounds and soft to palpation GI Narrative: Scaphoid abdomen with prominent pelvic bones, PEG tube in place left upper quadrant, dressing over left abdominal wound, mild tenderness in area of PEG tube Extremity no clubbing, cyanosis or edema Extremity Narrative: Markedly reduced lean muscle mass Neuro oriented x3, moves all extremities and no focal motor deficits Neuro Narrative: Severe generalized weakness noted but no focal deficits Speech: speech normal Psych Psych Narrative: Affect is flat but patient interacts appropriately makes good eye contact and answers questions appropriately Assessment & Plan Assessment/Plan (1) Severe protein-calorie malnutrition: PLAN: Continue current PEG tube feeding regimen as prescribed and titrate up to goal Monitor for signs of complications (there are no signs of infection, leakage or dislodgement).? No signs or symptoms of refeeding syndrome at this time..? Visit Charges Inpatient E&M: 16324 [facility] Hosp L3
[2024-07-26] MEDS: oxyCODONE 5 MG Tablet PO (20:07)
[2024-07-26] MEDS: Atorvastatin Calcium 20 MG Tablet PO (20:08)
[2024-07-26] MEDS: amLODIPine 5 MG Tablet PO (20:08)
[2024-07-26] MEDS: Mirtazapine 30 MG Tablet PO (20:09)
[2024-07-27 02:39] VITALS: BP 124/68; PULSE 61; RESP 18; TEMP 36.8; O2SAT 97
[2024-07-27] MEDS: Levothyroxine 100 MCG Tablet 200 MCG PO (05:02)
[2024-07-27 05:34] LABS: Absolute Lymphocyte Count 0.63 X10^3/uL (0.83-4.51); Absolute Neutrophil Count 18.1 X10^3/uL (2.0-7.7); Basophil# 0.04 X10^3/uL; Basophil% 0.2 % (0-1); Eosinophil# 0.05 X10^3/uL; Eosinophils% 0.3 % (0-5); Hematocrit 30.9 % (37-47); Hemoglobin 9.2 g/dL (12.0-15.0); Lymphocyte # 0.63 X10^3/ul (0.83-4.51); Lymphocyte % 3.2 % (19-41); Mean Corp Hgb Conc 29.8 g/dL (32-36); Mean Corpuscular Hgb 26.1 pg (27.0-32.0); Mean Corpuscular Volume 87.5 fL (81-99); Mean Platelet Vol. 8.8 fl (6.2-12.0); Monocyte% 4.5 % (0-10); NRBC Flagged by Analyzer 0 % (0-5); Neutrophil # 18.09 X10^3/uL (2.7-7.7); Neutrophil % 90.4 % (47-70); Platelet Count 265 K/mm3 (150-450); RBC Distribution Width CV 17.2 % (11.6-14.6); RBC Distribution Width SD 53.9 fl (35.1-43.9); Red Blood Count 3.53 M/mm3 (4.2-5.4)
[2024-07-27 06:00] LABS: Anion Gap 9 (5-15); BUN 29 mg/dL (4-19); Calcium 8.9 mg/dL (7.6-11.0); Carbon Dioxide 23.8 mmol/L (22.0-29.0); Chloride 98 mmol/L (96-108); EST Glomerular Filtration Rate 43 (>60); Estimated Creatinine Clearance 26.31 ml/min; Glucose 89 mg/dL (70-99); Magnesium 1.9 mg/dL (1.5-2.2); Phosphorus 3.6 mg/dL (2.7-4.5); Potassium 3.8 mmol/L (3.3-5.1); Sodium Level 130 mmol/L (133-145)
[2024-07-27 08:05] VITALS: BP 159/88; PULSE 74; RESP 16; TEMP 36.6; O2SAT 96
[2024-07-27] MEDS: Thiamine Hydrochloride 100 MG Tablet PO ×2 (08:31→16:57)
[2024-07-27] MEDS: Aspirin E.C. 81 MG Tablet PO (08:31)
[2024-07-27] MEDS: Jevity 1.5 1,000 ML 30 ML GT (09:24)
[2024-07-27] MEDS: Heparin Injection (Vial) 5,000 UNIT/ML VIAL 5000 UNIT SC ×2 (09:25→21:10)
[2024-07-27] MEDS: DAKIN'S SOL HALF STRENGTH (=0.25%) TOPICAL ×2 (09:25→21:13)
[2024-07-27] MEDS: Menthol/Lanolin/Calamine/Znox 113 GM Tube 1 APPLIC TOPICAL ×2 (09:26→21:10)
[2024-07-27] MEDS: Sertraline 50 MG Tablet 25 MG PO (09:26)
[2024-07-27 09:27] VITALS: PULSE 74
[2024-07-27] MEDS: Famotidine 20 MG Tablet PO (09:27)
[2024-07-27] MEDS: Metoprolol Tartrate 25 MG Tablet PO ×2 (09:27→21:11)
[2024-07-27] MEDS: Ascorbic Acid 500 MG Tablet PO (09:28)
--- NOTE | 2024-07-27 12:17 | PCM.PN.HOSP ---
Reason for Visit Reason for Visit: Failure to thrive Subjective Subjective Patient complaining of buttock pain upon my arrival. We did get nursing to reposition her. She states she is tolerating tube feed well. No emesis or nausea. Will increase tube feed rate from 20-30 today and if stable goal rate tomorrow at 50 cc. Electrolytes remained stable. Plan is for back to nursing facility on Monday as long as she has no signs of refeeding as tube feed trends towards goal rate. Objective Data Objective Data Vital Signs: Vital Signs Temp Pulse Resp BP Pulse Ox O2 Del Method O2 Flow Rate 97.8 F 74 16 159/88 H 96 Nasal Cannula 2 07/27/24 08:05 07/27/24 09:27 07/27/24 08:05 07/27/24 08:05 07/27/24 08:05 07/27/24 08:22 07/27/24 08:29 Oxygen Flow Rate (L/min) 2 Oxygen Delivery Method Nasal Cannula Weight: 40 kg Body Mass Index (BMI) 11.9 Intake & Output: Intake and Output for Last 24 Hours 07/25/24 07/26/24 07/27/24 23:59 23:59 23:59 Intake Total 2700 / 3150 1436 / 1436 416.83 / 416.83 Output Total 4685 / 4685 1710 / 1710 Balance -1985 / -1535 -274 / -274 416.83 / 416.83 Medical Nutrition Assessment Dietitian: Malnutrition Criteria Met Start: 07/24/24 10:44 Freq: Status: Active Protocol: Document 07/27/24 08:32 SLA (Rec: 07/27/24 08:32 SLA [email or web address]) Nutrition Malnutrition Evidence of Yes Malnutrition Exists Malnutrition (severe Chronic ): Evidenced By Suboptimal Energy Intake (Severe),Weight Loss (Severe), Physical Changes (Severe) Intake Problem Increased Nutrient Needs (specify) Etiology calories/protein related to increased demand for healing Signs/Symptoms as evidenced by abdominal, right heel, and gluteal cleft wounds Status Active Problem Clinical Problem Chronic Disease or Condition Related Malnutrition Etiology related to suboptimal appetite and multiple medical problems over the past ~6 months Signs/Symptoms as evidenced by 30.9lbs (24.3%) 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 BMI = 12.0 Status Active Problem Recommendation Dietitian Will advance to Regular diet as tolerated to optimize Recommendations/ oral intakes. Changes Discontinue 120mL ensure plus high protein 4x daily with medpass and give at EPHP w/ meals instead of ensure clear (prefers over Pramod bid) per pt request Continue to increase Jevity 1.5 by 10 mL/hr every 24 hours until goal rate 50 ml/hr achieved and continue to 145 mL water flush q4 hours to provide 720kcal, 30.6 grams protein/day. Will monitor closely for refeeding syndrome and advance enteral nutrition on a day-by-day basis to safely reach goal rate. Lab / Micro Data 07/27/24 04:50 07/27/24 04:50 Labs: Laboratory Results - last 24 hr 07/27/24 04:50: WBC 20.0 H, RBC 3.53 L, Hgb 9.2 L, Hct 30.9 L, MCV 87.5, MCH 26.1 L, MCHC 29.8 L, RDW Std Deviation 53.9 H, RDW Coeff of Monika 17.2 H, Plt Count 265, MPV 8.8, Immature Gran % (Auto) 1.400 H, Neut % (Auto) 90.4 H, Lymph % (Auto) 3.2 L, [place] % (Auto) 4.5, Eos % (Auto) 0.3, Baso % (Auto) 0.2, Absolute Neuts (auto) 18.1 H, Absolute Lymphs (auto) 0.63 L, Nucleated RBC % 0, Sodium 130 L, Potassium 3.8, Chloride Direct 98, Carbon Dioxide 23.8, Anion Gap 9, BUN 29 H, Creatinine 1.40 H, Estim Creat Clear Calc 26.31, Est GFR (MDRD) Non-Af 43 L, BUN/Creatinine Ratio 21.0 H, Glucose 89, Calcium 8.9, Phosphorus 3.6, Magnesium 1.9 Micro: Microbiology 07/25/24 07:30 Wound - Abdominal Gram Stain - Final 07/25/24 07:30 Wound - Abdominal Wound Culture - Final No growth aerobically. 07/23/24 14:45 Stool Stool Occult Blood (TUYET) - Final Physical Exam Const alert, oriented x3 and no apparent distress; Negative for average body habitus, healthy appearing or well nourished Constitutional Narrative: Cachectic appearing middle-aged, white female, lying in bed in right side-lying, appears somewhat uncomfortable due to buttock pain, no signs of respiratory distress, does not appear toxic General Appearance: cooperative HEENT normocephalic and head/scalp atraumatic HEENT Narrative: Mallampati 1, dentition is poor, no thrush Eyes Eyes Narrative: No icterus Resp normal respiratory effort, no retractions, no use of accessory muscles and clear to auscultation bilaterally Resp Narrative: Diminished but clear Auscultation: Negative for rales, rhonchi or wheezes Cardio regular rate, regular rhythm, S1 normal heart sound, S2 normal heart sound, no murmurs, no rub, no gallops and no clicks GI normal to inspection, nondistended, normoactive bowel sounds, soft to palpation and non-tender GI Narrative: PEG tube in place in left upper quadrant, dressing over left abdominal wound Extremity no clubbing, cyanosis or edema Extremity Narrative: Markedly reduced lean muscle mass Neuro oriented x3, moves all extremities and no focal motor deficits Neuro Narrative: Severe generalized weakness noted but no focal deficits Speech: speech normal Psych Psych Narrative: Affect is flat but patient interacts appropriately makes good eye contact and answers questions appropriately Assessment & Plan Assessment/Plan (1) Severe protein-calorie malnutrition: (2) End stage renal disease: (3) Leukocytosis: (4) Chronic anemia: PLAN: Plan Severe malnutrition -Patient severely underweight with temporal wasting and markedly decreased lean muscle mass -Appetite is poor with early satiety -Continue home Marinol -PEG tube placed by gastroenterology on 07/24/2024 -Despite increase in rate no signs of refeeding with electrolytes -Will advance to 30 cc/h and if stable tomorrow we will advance to goal rate of 50 cc with intent for discharge on Monday as long as she is stable -Continue continue p.o. diet and supplement with tube feed -GI following-appreciate input Leukocytosis -Has fluctuated -Etiology is unclear -question reactive from PEG tube placement -No signs of infection -Repeat in a.m. Open abdominal wall wound -Per discussion with wound nurse she does not feel this will close any further -Cultures are negative aerobically -Will have patient follow-up with plastic surgery as an outpatient after we can improve her nutritional status -Would not recommend any surgical procedures at this time Bilateral toe wounds with dry gangrene -Wound care is following -appreciate input -Continue expectant management with outpatient follow-up with the wound center Stage I sacral pressure ulcer -No marked drainage or signs of infection -Continue preventative strategies for prevention of progressive wound End-stage renal disease on HD -This was a result of ATN from hemorrhagic shock and patient has not had any renal recovery -Continue dialysis MWF -Nephrology is following-appreciate input -Baseline is between 8 and 9.5 Chronic anemia secondary to renal disease -Appears to be stable Hyponatremia -Remains down slightly at 130 -Like related to this -Repeat lab in a.m. History of factor V Leiden -Continue home aspirin GERD -Continue home famotidine Essential hypertension -Continue home amlodipine -Continue home metoprolol -Blood pressure fluctuates some we will continue to monitor for benefit of additional antihypertensive Hypothyroidism -Continue home levothyroxine Depression -Continue home sertraline -Continue home mirtazapine History of C. difficile -No current symptoms -Monitor closely DVT prophylaxis -Continue subcu heparin CODE STATUS -DNR CCA okay for short-term intubation Charges/Coding Visit Charges Inpatient E&M: 25571 Subs Hosp L2
[2024-07-27] MEDS: Dronabinol 2.5 MG Capsule PO ×2 (13:15→16:57)
[2024-07-27 15:56] VITALS: BP 140/80; PULSE 66; RESP 16; TEMP 36.6; O2SAT 95
[2024-07-27] MEDS: Acetaminophen 325 MG Tablet 650 MG PO (21:10)
[2024-07-27 21:11] VITALS: BP 162/83; PULSE 70
[2024-07-27] MEDS: Mirtazapine 30 MG Tablet PO (21:11)
[2024-07-27] MEDS: Atorvastatin Calcium 20 MG Tablet PO (21:11)
[2024-07-27] MEDS: Polyethylene Glycol 3350 17 GM PACKET PO (21:12)
[2024-07-27] MEDS: amLODIPine 5 MG Tablet PO (21:13)
[2024-07-27 22:00] VITALS: BP 162/83; PULSE 70; RESP 16; TEMP 36.8; O2SAT 94; O2SAT 95
[2024-07-28] VITALS (8 sets, daily range): BP systolic 149–176; BP diastolic 65–84; PULSE 61–80; RESP 14–18; TEMP 36.1–36.8; O2SAT 93–100
[2024-07-28] MEDS: Acetaminophen 325 MG Tablet 650 MG PO ×2 (05:29→15:22)
[2024-07-28] MEDS: oxyCODONE 5 MG Tablet PO ×3 (05:29→23:00)
[2024-07-28] MEDS: Levothyroxine 100 MCG Tablet 200 MCG PO (05:29)
[2024-07-28 05:46] LABS: Absolute Lymphocyte Count 0.41 X10^3/uL (0.83-4.51); Absolute Neutrophil Count 14.2 X10^3/uL (2.0-7.7); Basophil# 0.03 X10^3/uL; Basophil% 0.2 % (0-1); Eosinophil# 0.07 X10^3/uL; Eosinophils% 0.4 % (0-5); Hematocrit 32.2 % (37-47); Hemoglobin 9.6 g/dL (12.0-15.0); Lymphocyte # 0.41 X10^3/ul (0.83-4.51); Lymphocyte % 2.6 % (19-41); Mean Corp Hgb Conc 29.8 g/dL (32-36); Mean Corpuscular Hgb 25.7 pg (27.0-32.0); Mean Corpuscular Volume 86.3 fL (81-99); Mean Platelet Vol. 8.3 fl (6.2-12.0); Monocyte# 0.65 X10^3/uL; Monocyte% 4.2 % (0-10); NRBC Flagged by Analyzer 0 % (0-5); Neutrophil # 14.22 X10^3/uL (2.7-7.7); Neutrophil % 90.9 % (47-70); POSITIVE DIFFERENTIAL YES; Platelet Count 217 K/mm3 (150-450); RBC Distribution Width CV 17.2 % (11.6-14.6); RBC Distribution Width SD 53.4 fl (35.1-43.9); Red Blood Count 3.73 M/mm3 (4.2-5.4); White Blood Count 15.6 K/mm3 (4.4-11.0)
[2024-07-28 06:15] LABS: Phosphorus 3.4 mg/dL (2.7-4.5)
[2024-07-28 06:18] LABS: Anion Gap 9 (5-15); BUN 40 mg/dL (4-19); BUN/Creat Ratio 22.8 RATIO (10-20); Calcium 8.8 mg/dL (7.6-11.0); Carbon Dioxide 22.8 mmol/L (22.0-29.0); Chloride 98 mmol/L (96-108); Creatinine, Serum 1.74 mg/dL (0.70-1.20); EST Glomerular Filtration Rate 33 (>60); Estimated Creatinine Clearance 21.17 ml/min (50-250); Glucose 69 mg/dL (70-99); Potassium 4.4 mmol/L (3.3-5.1); Sodium Level 130 mmol/L (133-145)
--- NOTE | 2024-07-28 07:21 | PCM.PN.HOSP ---
Reason for Visit Reason for Visit: Failure to thrive Subjective Subjective No issues overnight. Only complains of some buttock pain which is chronic for her. Has been tolerating tube feeds without any nausea and no abdominal pain present. Objective Data Objective Data Vital Signs: Vital Signs Temp Pulse Resp BP Pulse Ox O2 Del Method O2 Flow Rate 97.5 F L 80 16 166/84 H 94 Nasal Cannula 2 07/28/24 04:00 07/28/24 04:00 07/28/24 04:00 07/28/24 04:00 07/28/24 04:00 07/28/24 04:00 07/28/24 04:00 Oxygen Flow Rate (L/min) 2 Oxygen Delivery Method Nasal Cannula Weight: 40 kg Body Mass Index (BMI) 11.9 Intake & Output: Intake and Output for Last 24 Hours 07/26/24 07/27/24 07/28/24 23:59 23:59 23:59 Intake Total 1436 / 1436 416.83 / 516.83 200 / 200 Output Total 1710 / 1710 Balance -274 / -274 416.83 / 516.83 200 / 200 Medical Nutrition Assessment Dietitian: Malnutrition Criteria Met Start: 07/24/24 10:44 Freq: Status: Active Protocol: Document 07/27/24 08:32 SLA (Rec: 07/27/24 08:32 SLA [email or web address]) Nutrition Malnutrition Evidence of Yes Malnutrition Exists Malnutrition (severe Chronic ): Evidenced By Suboptimal Energy Intake (Severe),Weight Loss (Severe), Physical Changes (Severe) Intake Problem Increased Nutrient Needs (specify) Etiology calories/protein related to increased demand for healing Signs/Symptoms as evidenced by abdominal, right heel, and gluteal cleft wounds Status Active Problem Clinical Problem Chronic Disease or Condition Related Malnutrition Etiology related to suboptimal appetite and multiple medical problems over the past ~6 months Signs/Symptoms as evidenced by 30.9lbs (24.3%) 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 BMI = 12.0 Status Active Problem Recommendation Dietitian Will advance to Regular diet as tolerated to optimize Recommendations/ oral intakes. Changes Discontinue 120mL ensure plus high protein 4x daily with medpass and give at EPHP w/ meals instead of ensure clear (prefers over Pramod bid) per pt request Continue to increase Jevity 1.5 by 10 mL/hr every 24 hours until goal rate 50 ml/hr achieved and continue to 145 mL water flush q4 hours to provide 720kcal, 30.6 grams protein/day. Will monitor closely for refeeding syndrome and advance enteral nutrition on a day-by-day basis to safely reach goal rate. Lab / Micro Data 07/28/24 04:57 07/28/24 04:57 Labs: Laboratory Results - last 24 hr 07/28/24 04:57: WBC 15.6 H, RBC 3.73 L, Hgb 9.6 L, Hct 32.2 L, MCV 86.3, MCH 25.7 L, MCHC 29.8 L, RDW Std Deviation 53.4 H, RDW Coeff of Monika 17.2 H, Plt Count 217, MPV 8.3, Immature Gran % (Auto) 1.700 H, Neut % (Auto) 90.9 H, Lymph % (Auto) 2.6 L, [place] % (Auto) 4.2, Eos % (Auto) 0.4, Baso % (Auto) 0.2, Absolute Neuts (auto) 14.2 H, Absolute Lymphs (auto) 0.41 L, Nucleated RBC % 0, Sodium 130 L, Potassium 4.4, Chloride Direct 98, Carbon Dioxide 22.8, Anion Gap 9, BUN 40 H, Creatinine 1.74 H, Estim Creat Clear Calc 21.17 L, Est GFR (MDRD) Non-Af 33 L, BUN/Creatinine Ratio 22.8 H, Glucose 69 L, Calcium 8.8, Phosphorus 3.4, Magnesium 2.0 Micro: Microbiology 07/25/24 07:30 Wound - Abdominal Gram Stain - Final 07/25/24 07:30 Wound - Abdominal Wound Culture - Final No growth aerobically. 07/23/24 14:45 Stool Stool Occult Blood (TUYET) - Final Physical Exam Const alert, oriented x3 and no apparent distress; Negative for average body habitus, healthy appearing or well nourished Constitutional Narrative: Cachectic appearing middle-aged, white female, lying in bed slightly turned to the left, currently appears comfortable and was resting comfortably on my arrival, nontoxic General Appearance: cooperative HEENT normocephalic and head/scalp atraumatic HEENT Narrative: Mallampati 1, no thrush, dentition is poor Eyes Eyes Narrative: No icterus Resp normal respiratory effort, no retractions, no use of accessory muscles and clear to auscultation bilaterally Resp Narrative: Diminished but clear Auscultation: Negative for rales, rhonchi or wheezes Cardio regular rate, regular rhythm, S1 normal heart sound, S2 normal heart sound, no murmurs, no rub, no gallops and no clicks GI normal to inspection, nondistended, normoactive bowel sounds, soft to palpation and non-tender GI Narrative: PEG tube in place in left upper quadrant, dressing over left abdominal wound Extremity no clubbing, cyanosis or edema Extremity Narrative: Markedly reduced lean muscle mass Neuro oriented x3, moves all extremities and no focal motor deficits Neuro Narrative: Severe generalized weakness noted but no focal deficits Speech: speech normal Psych Psych Narrative: Affect is flat but patient interacts appropriately makes good eye contact and answers questions appropriately Assessment & Plan Assessment/Plan (1) Severe protein-calorie malnutrition: (2) End stage renal disease: (3) Leukocytosis: (4) Chronic anemia: PLAN: Plan Severe malnutrition -Patient severely underweight with temporal wasting and markedly decreased lean muscle mass -Appetite is poor with early satiety -Continue home Marinol -PEG tube placed by gastroenterology on 07/24/2024 -Advance to goal tube feed at 50 cc/h and patient tolerating well with no signs of refeeding as of yet -Plan is for continuous tube feeds at the time of discharge and transition to bolus feeds as she tolerates better as an outpatient -Should be able to discharge tomorrow as long as electrolytes stable -Continue continue p.o. diet and supplement with tube feed -GI following-appreciate input Leukocytosis -Trending down -No signs of infection -Suspect probably reactive from PEG tube placement Open abdominal wall wound -Per discussion with wound nurse she does not feel this will close any further -Cultures are negative aerobically -Will have patient follow-up with plastic surgery as an outpatient after we can improve her nutritional status -Would not recommend any surgical procedures at this time Bilateral toe wounds with dry gangrene -Wound care is following -appreciate input -Continue expectant management with outpatient follow-up with the wound center Stage I sacral pressure ulcer -No marked drainage or signs of infection -Continue preventative strategies for prevention of progressive wound End-stage renal disease on HD -This was a result of ATN from hemorrhagic shock and patient has not had any renal recovery -Continue dialysis MWF -HD tomorrow -Nephrology is following-appreciate input -Baseline is between 8 and 9.5 Chronic anemia secondary to renal disease -Appears to be stable Hyponatremia -Remains down slightly at 130 but stable -Like related to this -Repeat lab in a.m. History of factor V Leiden -Continue home aspirin GERD -Continue home famotidine Essential hypertension -Continue home amlodipine -Continue home metoprolol -Blood pressure fluctuates some we will continue to monitor for benefit of additional antihypertensive Hypothyroidism -Continue home levothyroxine Depression -Continue home sertraline -Continue home mirtazapine History of C. difficile -No current symptoms -Monitor closely DVT prophylaxis -Continue subcu heparin CODE STATUS -DNR CCA okay for short-term intubation Charges/Coding Visit Charges Inpatient E&M: 61176 Subs Hosp L2
[2024-07-28] MEDS: Sertraline 50 MG Tablet 25 MG PO (08:39)
[2024-07-28] MEDS: Famotidine 20 MG Tablet PO (08:40)
[2024-07-28] MEDS: Aspirin E.C. 81 MG Tablet PO (08:40)
[2024-07-28] MEDS: Ascorbic Acid 500 MG Tablet PO (08:40)
[2024-07-28] MEDS: Thiamine Hydrochloride 100 MG Tablet PO ×2 (08:40→17:19)
[2024-07-28] MEDS: Heparin Injection (Vial) 5,000 UNIT/ML VIAL 5000 UNIT SC ×2 (08:40→22:54)
[2024-07-28] MEDS: Metoprolol Tartrate 25 MG Tablet PO ×2 (08:40→22:56)
[2024-07-28] MEDS: Menthol/Lanolin/Calamine/Znox 113 GM Tube 1 APPLIC TOPICAL ×2 (08:41→22:55)
[2024-07-28] MEDS: Dronabinol 2.5 MG Capsule PO ×2 (11:43→17:19)
[2024-07-28] MEDS: Jevity 1.5 1,000 ML 50 ML GT (15:12)
[2024-07-28] MEDS: DAKIN'S SOL HALF STRENGTH (=0.25%) TOPICAL ×2 (17:10→22:57)
[2024-07-28] MEDS: Atorvastatin Calcium 20 MG Tablet PO (22:55)
[2024-07-28] MEDS: amLODIPine 5 MG Tablet PO (22:56)
[2024-07-28] MEDS: Mirtazapine 30 MG Tablet PO (22:57)
[2024-07-29] VITALS (15 sets, daily range): BP systolic 81–249; BP diastolic 58–100; PULSE 65–80; RESP 12–18; TEMP 36.3–37.2; O2SAT 97–100; BMI 11.9; BMI 11.2
[2024-07-29] MEDS: Jevity 1.5 1,000 ML 50 ML GT (00:03)
[2024-07-29] MEDS: Levothyroxine 100 MCG Tablet 200 MCG PO (05:51)
[2024-07-29] MEDS: oxyCODONE 5 MG Tablet PO ×2 (06:02→14:51)
[2024-07-29 07:54] LABS: Hematocrit 28.1 % (37-47); Hemoglobin 8.3 g/dL (12.0-15.0); Mean Corp Hgb Conc 29.5 g/dL (32-36); Mean Corpuscular Hgb 25.7 pg (27.0-32.0); Mean Platelet Vol. 9.3 fl (6.2-12.0); Platelet Count 222 K/mm3 (150-450); RBC Distribution Width SD 53.6 fl (35.1-43.9); Red Blood Count 3.23 M/mm3 (4.2-5.4); White Blood Count 13.8 K/mm3 (4.4-11.0)
--- NOTE | 2024-07-29 07:55 | CPS ---
Attempted to get pulse ox reading on pt. Unable to obtain.
[2024-07-29 09:31] LABS: Anion Gap 9 (5-15); BUN 50 mg/dL (4-19); BUN/Creat Ratio 26.5 RATIO (10-20); Calcium 8.5 mg/dL (7.6-11.0); Chloride 95 mmol/L (96-108); Creatinine, Serum 1.88 mg/dL (0.70-1.20); EST Glomerular Filtration Rate 30 (>60); Estimated Creatinine Clearance 19.59 ml/min (50-250); Glucose 121 mg/dL (70-99); Magnesium 1.8 mg/dL (1.5-2.2); Phosphorus 3.3 mg/dL (2.7-4.5); Potassium 4.6 mmol/L (3.3-5.1); Sodium Level 129 mmol/L (133-145)
[2024-07-29] MEDS: Heparin 10,000 UNITS/10 ML Vial IV (11:16)
[2024-07-29] MEDS: PureFlow B 2K Dialysis Soln 1 BAG 6 BAG PF (11:17)
[2024-07-29] MEDS: 0.9% Normal Saline 1,000 ML IV.SOLN. 1000 ML OPERA.SITE (11:17)
[2024-07-29] MEDS: Sertraline 50 MG Tablet 25 MG PO (12:03)
[2024-07-29] MEDS: Ascorbic Acid 500 MG Tablet PO (12:03)
[2024-07-29] MEDS: Dronabinol 2.5 MG Capsule PO (12:03)
[2024-07-29] MEDS: Thiamine Hydrochloride 100 MG Tablet PO (12:04)
[2024-07-29] MEDS: Metoprolol Tartrate 25 MG Tablet PO (12:04)
[2024-07-29] MEDS: Famotidine 20 MG Tablet PO (12:04)
[2024-07-29] MEDS: Heparin Injection (Vial) 5,000 UNIT/ML VIAL 5000 UNIT SC (12:05)
[2024-07-29] MEDS: DAKIN'S SOL HALF STRENGTH (=0.25%) TOPICAL (12:05)
[2024-07-29] MEDS: Menthol/Lanolin/Calamine/Znox 113 GM Tube 1 APPLIC TOPICAL (12:05)
--- NOTE | 2024-07-29 12:26 | CASEMGMT ---
Social Work- YVONNE received a call from Fabiola at [facility] regarding pt ability to sit in wheelchair for transport to dialysis. Fabiola reports that precert has been obtained and they are tryng to make arrangements for pt to return, with transport to dialysis and pt tube feeds being areas that [facility] is actively working to plan for. YVONNE spoke with bedside nurse and therapy to discuss pt ability to sit for transport for dialysis. Both nursing and therapy recommend a cot at this time. Fabiola at [facility] updated. DCA notified. Fabiola reports that she will update when tube feeds have been secured and pt can d/c. YVONNE remains available to follow. Plan: [facility]; skilled level of care RICKY Foss
--- NOTE | 2024-07-29 14:44 | PN_ITS ---
Subjective Subjective Patient seen and examined. She was having dialysis. She denied any fever but admitted to chills. Review of systems is otherwise negative. She is awaiting placement, pending precert. She is on 2L of oxygen. Objective Data Objective Data Vital Signs: Vital Signs Temp Pulse Resp BP Pulse Ox O2 Del Method O2 Flow Rate 97.8 F 80 12 179/100 H 100 Nasal Cannula 2 07/29/24 11:30 07/29/24 12:04 07/29/24 11:30 07/29/24 12:04 07/29/24 09:00 07/29/24 11:30 07/29/24 11:30 Oxygen Flow Rate (L/min) 2 Oxygen Delivery Method Nasal Cannula Weight: 82 lb 10.774 oz Body Mass Index (BMI) 11.2 Intake & Output: Intake and Output for Last 24 Hours 07/27/24 07/28/24 07/29/24 23:59 23:59 23:59 Intake Total 416.83 / 516.83 1818 567.5 / 567.5 Output Total 1480 / 1480 Balance 416.83 / 516.83 1818 -912.5 / -912.5 Medical Nutrition Assessment Dietitian: Malnutrition Criteria Met Start: 07/24/24 10:44 Freq: Status: Active Protocol: Document 07/29/24 12:15 SLA (Rec: 07/29/24 12:15 SLA [email or web address]) Nutrition Malnutrition Evidence of Yes Malnutrition Exists Malnutrition (severe Chronic ): Evidenced By Suboptimal Energy Intake (Severe),Weight Loss (Severe), Physical Changes (Severe) Intake Problem Increased Nutrient Needs (specify) Etiology calories/protein related to increased demand for healing Signs/Symptoms as evidenced by abdominal, right heel, and gluteal cleft wounds Status Active Problem Clinical Problem Chronic Disease or Condition Related Malnutrition Etiology related to suboptimal appetite and multiple medical problems over the past ~6 months Signs/Symptoms as evidenced by 30.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 BMI = 12.0 Status Active Problem Recommendation Dietitian Will continue Regular diet as tolerated to optimize Recommendations/ oral intakes. Changes Provide Ensure plus high protein tid w/ meals for increased nutrition if consumed. Provide fortified foods at meals as able for increased cherrie/pro if consumed Continue Jevity 1.5 at 50 mL/hr with 145 mL water flush q4 hours to provide 1800kcal, 76.5 grams protein, and 1782mL water daily. Lab / Micro Data 07/29/24 06:47 07/29/24 06:47 Labs: Laboratory Results - last 24 hr 07/29/24 06:47: WBC 13.8 H, RBC 3.23 L, Hgb 8.3 L, Hct 28.1 L, MCV 87.0, MCH 25.7 L, MCHC 29.5 L, RDW Std Deviation 53.6 H, RDW Coeff of Monika 17.0 H, Plt Count 222, MPV 9.3, Sodium 129 L, Potassium 4.6, Chloride Direct 95 L, Carbon Dioxide 25.0, Anion Gap 9, BUN 50 H, Creatinine 1.88 H, Estim Creat Clear Calc 19.59 L, Est GFR (MDRD) Non-Af 30 L, BUN/Creatinine Ratio 26.5 H, Glucose 121 H, Calcium 8.5, Phosphorus 3.3, Magnesium 1.8 Micro: Microbiology 07/25/24 07:30 Wound - Abdominal Gram Stain - Final 07/25/24 07:30 Wound - Abdominal Wound Culture - Final No growth aerobically. 07/23/24 14:45 Stool Stool Occult Blood (TUYET) - Final Physical Exam Const alert, oriented x3 and no apparent distress Constitutional Narrative: very frail and thin. General Appearance: cooperative HEENT normocephalic, head/scalp atraumatic and moist oral mucous membranes Eyes PERRL and EOMs intact bilaterally Neck no lymphadenopathy and supple Lymph Lymphatic: no lymphadenopathy noted Resp normal respiratory effort, normal air movement and clear to auscultation bilaterally Cardio regular rate, regular rhythm, S1 normal heart sound, S2 normal heart sound and no murmurs GI normal to inspection, nondistended, normoactive bowel sounds, soft to palpation, non-tender and non-distended GI Narrative: PEG tube in situ Extremity normal capillary refill, no clubbing, cyanosis or edema and no calf tenderness General Extremity: no tenderness to palpation of joints or extremities Skin General Skin Exam: no breakdown Neuro CN's II-XII intact bilaterally, no focal motor deficits and no sensory deficits noted Coordination / Balance: [id number] test normal and [id number] test normal Motor Exam: strength 5/5 throughout and general weakness Psych thought process normal and cooperative Appearance: appropriate Assessment & Plan Assessment/Plan (1) Severe protein-calorie malnutrition: (2) End stage renal disease: (3) Leukocytosis: PLAN: Plan #Severe protein calorie malnutrition * on marinol. Had PEG tube inserted by GI on 07/24/2024 * on tube feeds with dose at goal. * GI on board. * #Abdominal wound * to follow up with plastic surgery on outpatient basis. * wound care on board. Cultures negative * #Bilateral toe wounds with dry gangrene * wound care on board. * follow up with wound care on outpatient basis. * #ESRD on HD: on dialysis. Nephrology on board. On dialysis MWF. Having dialysis today. #Hyponatremia: likely due to ESRD. Will monitor. #Histroy of Factor V Leiden deficiency: on aspirin. #GERD: on PPI #Benign essential hypertension: on amlodipine and metoprolol. #Chronic anemia: * Hemoglobin is 8.3. Was 9.6 yesterday. * Hemoglobin has fluctuated between 8-9. * Will monitor closely and transfuse if hemoglobin less than 7. #Hypothyroidism:on synthroid #Depression: on sertraline and mirtazapine. DVT prophylaxis: heparin Disposition: For placement pending pre-CERT. Charges/Coding Visit Charges Inpatient E&M: 33146 Subs Hosp L2
--- NOTE | 2024-07-29 16:02 | PCM.PN.REN ---
Subjective Subjective no new events Objective Data Objective Data Vital Signs: Vital Signs Temp Pulse Resp BP Pulse Ox O2 Del Method O2 Flow Rate 98.5 F 78 18 149/72 H 97 Nasal Cannula 2 07/29/24 14:55 07/29/24 14:55 07/29/24 14:55 07/29/24 14:55 07/29/24 14:55 07/29/24 14:55 07/29/24 14:55 Oxygen Flow Rate (L/min) 2 Oxygen Delivery Method Nasal Cannula Weight: 37.5 kg Body Mass Index (BMI) 11.2 Intake & Output: Intake and Output for Last 24 Hours 07/27/24 07/28/24 07/29/24 23:59 23:59 23:59 Intake Total 416.83 / 516.83 1818 567.5 / 567.5 Output Total 1480 / 1480 Balance 416.83 / 516.83 1818 -912.5 / -912.5 Medical Nutrition Assessment Dietitian: Malnutrition Criteria Met Start: 07/24/24 10:44 Freq: Status: Active Protocol: Document 07/29/24 12:15 SLA (Rec: 07/29/24 12:15 SLA [email or web address]) Nutrition Malnutrition Evidence of Yes Malnutrition Exists Malnutrition (severe Chronic ): Evidenced By Suboptimal Energy Intake (Severe),Weight Loss (Severe), Physical Changes (Severe) Intake Problem Increased Nutrient Needs (specify) Etiology calories/protein related to increased demand for healing Signs/Symptoms as evidenced by abdominal, right heel, and gluteal cleft wounds Status Active Problem Clinical Problem Chronic Disease or Condition Related Malnutrition Etiology related to suboptimal appetite and multiple medical problems over the past ~6 months Signs/Symptoms as evidenced by 30.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 BMI = 12.0 Status Active Problem Recommendation Dietitian Will continue Regular diet as tolerated to optimize Recommendations/ oral intakes. Changes Provide Ensure plus high protein tid w/ meals for increased nutrition if consumed. Provide fortified foods at meals as able for increased cherrie/pro if consumed Continue Jevity 1.5 at 50 mL/hr with 145 mL water flush q4 hours to provide 1800kcal, 76.5 grams protein, and 1782mL water daily. Lab / Micro Data 07/29/24 06:47 07/29/24 06:47 Labs: Laboratory Results - last 24 hr 07/29/24 06:47: WBC 13.8 H, RBC 3.23 L, Hgb 8.3 L, Hct 28.1 L, MCV 87.0, MCH 25.7 L, MCHC 29.5 L, RDW Std Deviation 53.6 H, RDW Coeff of Monika 17.0 H, Plt Count 222, MPV 9.3, Sodium 129 L, Potassium 4.6, Chloride Direct 95 L, Carbon Dioxide 25.0, Anion Gap 9, BUN 50 H, Creatinine 1.88 H, Estim Creat Clear Calc 19.59 L, Est GFR (MDRD) Non-Af 30 L, BUN/Creatinine Ratio 26.5 H, Glucose 121 H, Calcium 8.5, Phosphorus 3.3, Magnesium 1.8 Micro: Microbiology 07/25/24 07:30 Wound - Abdominal Gram Stain - Final 07/25/24 07:30 Wound - Abdominal Wound Culture - Final No growth aerobically. 07/23/24 14:45 Stool Stool Occult Blood (TUYET) - Final Physical Exam Narrative no obvious distress no pallor no icterus no JVD s1s2 no murmurs lungs clear abdomen soft no organomegaly no edema no cyanosis Assessment & Plan Assessment/Plan (1) End stage renal disease: PLAN: On hemodialysis Monday, Monday, Monday schedule. In general her creatinine runs low because of extremely poor muscle mass. She had a 24-hour urine collection which did not show significant return of kidney function. Abdominal imaging with atrophic right kidney. HD today. see orders. she is s/p PEG tube placement.
--- NOTE | 2024-07-29 16:13 | CASEMGMT ---
Social Work- Precert obtained. Physician updated and feels that pt is medically ready for discharge. Discharge back to [facility] under skilled level of care. ?In case of late discharge, green sheet on chart for nursing to follow for final discharge arrangements/notifications to SNF, patient/family.? ? Plan: [facility]; skilled level of care RICKY Foss?
--- NOTE | 2024-07-29 16:32 | TREXTCAR_ITS ---
Diet Diet Order/Speech Therapy: 07/27/24 08:21 Diet: Regular - General Type of Dietary Supplement:: Ensure Plus High Protein Diet Comments: EPHP w/ meals tid (no minh) - FORTIFIED FOODS tid as able- PT IS A FEED Tube Feed: as per dietitian Routine Orders/Code Status Enema Type: Fleetz Enema Frequency: Daily PRN Suppository Frequency: Daily PRN DC O2, CPAP, BIPAP needs Home O2 Discharge instructions: No Wound(s) gluteal cleft: Wound Type: Pressure Injury left foot great toe: Wound Type: dry eschar right foot great toe: Wound Type: dry eschar right side of heel: Wound Type: Pressure Injury coccyx: Wound Type: Pressure Injury Dressing Change: foam dressing left lower abdomen: Wound Type: nonhealing wound (unknown origin) Dressing Change: Dakins moistened gauze L abd: Wound Type: Surgical Incision Therapies Weight Bearing: Weight bearing as tolerated Physical Therapy: Eval and Treat Occupational Therapy: Eval and Treat Problem/Diagnosis (1) End stage renal disease: Status: Acute Code(s): N18.6 - End stage renal disease Plan #Severe protein calorie malnutrition * on marinol. Had PEG tube inserted by GI on 07/24/2024 * on tube feeds with dose at goal. * GI on board. * #Abdominal wound * to follow up with plastic surgery on outpatient basis. * wound care on board. Cultures negative * #Bilateral toe wounds with dry gangrene * wound care on board. * follow up with wound care on outpatient basis. * #ESRD on HD: on dialysis. Nephrology on board. On dialysis MWF. Having dialysis today. #Hyponatremia: likely due to ESRD. Will monitor. #Histroy of Factor V Leiden deficiency: on aspirin. #GERD: on PPI #Benign essential hypertension: on amlodipine and metoprolol. #Chronic anemia: * Hemoglobin is 8.3. Was 9.6 yesterday. * Hemoglobin has fluctuated between 8-9. * Will monitor closely and transfuse if hemoglobin less than 7. #Hypothyroidism:on synthroid #Depression: on sertraline and mirtazapine. DVT prophylaxis: heparin Disposition: For placement pending pre-CERT. Allergies/Procedures Done in Hospital Allergies iodine Allergy (Intermediate, Verified 07/24/24 13:53) Nausea shellfish derived Allergy (Intermediate, Verified 07/24/24 13:53) Nausea Procedures: Peg tube placement Type of Care/Length of Stay Estimated LOS: Convalescent Care Less Than 30 days Type of Care Needed: Skilled Rehab Potential: Fair Prognosis: Fair Additional Orders/Day of Discharge Day of Discharge: 07/29/24 Dietary and Speech Recommendations Dietitian Recommendations/Changes: Will continue Regular diet as tolerated to optimize oral intakes. Provide Ensure plus high protein tid w/ meals for increased nutrition if consumed. Provide fortified foods at meals as able for increased cherrie/pro if consumed Continue Jevity 1.5 at 50 mL/hr with 145 mL water flush q4 hours to provide 1800kcal, 76.5 grams protein, and 1782mL water daily. Discharge Plan Admission Admit Date/Time: 07/23/24 17:23 Primary Reason for Your Visit: severe protein calorie malnutrition Attending Provider: Mar Mead Primary Care Provider: Ethan Rodriguez Consulting Providers: Angie Torres; Judd Galvin; Remedios Kessler Instructions Patient Instructions: Gastrostomy Feeding Tube Care ..., Understanding PEG Tube Feeding Discharge Orders/Prescriptions Prescriptions: Continued cyclobenzaprine 5 mg tablet 5 mg PO TID PRN (Reason: MUSCLE SPASMS) acetaminophen 325 mg tablet 650 mg PO Q4H PRN (Reason: fever) guaifenesin 100 mg/5 mL liquid 200 mg PO Q4H PRN (Reason: cough) dronabinol [Marinol] 2.5 mg capsule 2.5 mg PO BID Rx Instructions: administer before lunch and evening meal/dinner mirtazapine 30 mg tablet 30 mg PO QHS sertraline 25 mg tablet 25 mg PO DAILY Renal Vitamin 0.8 mg tablet 1 tab PO DAILY polyethylene glycol 3350 17 gram/dose powder 17 g PO QODAY Rx Instructions: EVERY OTHER DAY AT BED TIME ondansetron 4 mg tablet,disintegrating 4 mg PO DAILY PRN (Reason: nausea and vomiting) docusate sodium 100 mg tablet 100 mg PO BID PRN (Reason: constipation) midodrine 10 mg tablet 10 mg PO DAILY PRN (Reason: for SBP lower than 110 during dialysis tx) Rx Instructions: for SBP lower than 110 during dialysis tx aspirin [Adult Aspirin Regimen] 81 mg tablet,delayed release (DR/EC) 81 mg PO DAILY atorvastatin 20 mg tablet 20 mg PO QHS heparin (porcine) 5,000 unit/mL (1 mL) cartridge 5,000 unit subcut Q8H metoprolol tartrate 25 mg tablet 25 mg PO BID oxycodone 5 mg tablet 5 mg PO Q6H PRN (Reason: pain) ascorbic acid (vitamin C) 500 mg capsule 500 mg PO DAILY thiamine HCl (vitamin B1) 100 mg tablet 100 mg PO BID amlodipine 5 mg tablet 5 mg PO QHS levothyroxine 200 mcg tablet 200 mcg PO DAILY sennosides-docusate sodium [Senna Plus] 8.6-50 mg tablet 1 tab-cap PO DAILY PRN (Reason: constipation) famotidine 10 mg tablet 20 mg PO DAILY Culturelle 10 billion cell capsule 1 cap PO DAILY aluminum-magnesium hydroxide 200-200 mg/5 mL suspension 30 ml PO Q4H PRN (Reason: GI DISTRESS) Referrals / Follow Up: Angie Torres MD [Med Staff - Consulting] - Within 1 Week Ethan Rodriguez MD [Primary Care Provider] - Within 1 Week Disposition Disposition (needs filled in before D/C Order can be placed): [facility]
--- NOTE | 2024-07-29 16:34 | DS.PCM_ITS ---
Providers Date of Admission: 07/23/24 Date of Discharge: 07/29/24 Primary Care Physician: Dr. Ethan Rodriguez MD Consultations 07/23/24 20:16 Consult: Gastroenterology Routine Consulting Provider: [facility] Reason for Consult: PEG tube evaluation. EMERGENT Consult: No Notified: Yes Date Notified: 07/23/24 Time Notified: 17:31 Method of Notification: Text Consult: Nephrology Routine Consulting Provider: Angie Torres Reason for Consult: dialysis EMERGENT Consult: No Notified: Yes Date Notified: 07/23/24 Time Notified: 17:34 Method of Notification: Text Consult: Onc/Wound/physicist acoustics Routine Comment: Reason For Visit: SEVERE MALNUTRITION Diagnosis Discharge Diagnosis (1) End stage renal disease: Status: Acute Code(s): N18.6 - End stage renal disease Plan #Severe protein calorie malnutrition * on marinol. Had PEG tube inserted by GI on 07/24/2024 * on tube feeds with dose at goal. * GI on board. * #Abdominal wound * to follow up with plastic surgery on outpatient basis. * wound care on board. Cultures negative * #Bilateral toe wounds with dry gangrene * wound care on board. * follow up with wound care on outpatient basis. * #ESRD on HD: on dialysis. Nephrology on board. On dialysis MWF. Having dialysis today. #Hyponatremia: likely due to ESRD. Will monitor. #Histroy of Factor V Leiden deficiency: on aspirin. #GERD: on PPI #Benign essential hypertension: on amlodipine and metoprolol. #Chronic anemia: * Hemoglobin is 8.3. Was 9.6 yesterday. * Hemoglobin has fluctuated between 8-9. * Will monitor closely and transfuse if hemoglobin less than 7. #Hypothyroidism:on synthroid #Depression: on sertraline and mirtazapine. DVT prophylaxis: heparin Disposition: For placement pending pre-CERT. Medications at Discharge Home Medications aspirin 81 mg tablet,delayed release (Adult Aspirin Regimen) 81 mg PO DAILY 03/11/24 atorvastatin 20 mg tablet 20 mg PO QHS 03/11/24 heparin (porcine) 5,000 unit/mL (1 mL) injection cartridge 5,000 unit subcut Q8H 03/11/24 metoprolol tartrate 25 mg tablet 25 mg PO BID 03/11/24 ascorbic acid (vitamin C) 500 mg capsule 500 mg PO DAILY 04/11/24 thiamine HCl (vitamin B1) 100 mg tablet 100 mg PO BID 04/11/24 cyclobenzaprine 5 mg tablet 5 mg PO TID PRN MUSCLE SPASMS 06/05/24 Lactobacillus rhamnosus GG 10 billion cell capsule (Culturelle) 1 cap PO DAILY 07/18/24 acetaminophen 325 mg tablet 650 mg PO Q4H PRN fever 07/18/24 aluminum-magnesium hydroxide 200 mg-200 mg/5 mL oral suspension 30 ml PO Q4H PRN GI DISTRESS 07/18/24 amlodipine 5 mg tablet 5 mg PO QHS 07/18/24 docusate sodium 100 mg tablet 100 mg PO BID PRN constipation 07/18/24 dronabinol 2.5 mg capsule (Marinol) 2.5 mg PO BID 07/18/24 famotidine 10 mg tablet 20 mg PO DAILY 07/18/24 guaifenesin 100 mg/5 mL oral liquid 200 mg PO Q4H PRN cough 07/18/24 levothyroxine 200 mcg tablet 200 mcg PO DAILY 07/18/24 midodrine 10 mg tablet 10 mg PO DAILY PRN for SBP lower than 110 during dialysis tx 07/18/24 mirtazapine 30 mg tablet 30 mg PO QHS 07/18/24 ondansetron 4 mg disintegrating tablet 4 mg PO DAILY PRN nausea and vomiting 07/18/24 oxycodone 5 mg tablet 5 mg PO Q6H PRN pain 07/18/24 polyethylene glycol 3350 17 gram/dose oral powder 17 g PO QODAY 07/18/24 sennosides 8.6 mg-docusate sodium 50 mg tablet (Senna Plus) 1 tab-cap PO DAILY PRN constipation 07/18/24 sertraline 25 mg tablet 25 mg PO DAILY 07/18/24 vitamin B complex-vitamin C-folic acid 0.8 mg tablet (Renal Vitamin) 1 tab PO DAILY 07/18/24 Hospital Course Operations None Procedures Peg tube placement Summary of Care Provided Minutes Spent on Discharge: 45 Hospital Course: Patient is a 64-year-old female with a past medical history as outlined was admitted through the ED on 07/23/2024 with a request for TPN. Patient had been hospitalized from December to January 2024 for an endovascular leak for her abdominal aortic aneurysm which was complicated by retroperitoneal hematoma as well as hemorrhagic shock and TUTU that resulted in ESRD requiring dialysis and also pleural effusion for which she had chest tubes placed and drained left- sided chylothorax. That hospital stay was also complicated by C. difficile which required a prolonged taper of vancomycin. Subsequently developed an abdominal wound for which she had debridement done and a wound VAC placed. Wound VAC was subsequently removed but the wound had persisted since February 2024. She was temporarily on TPN during her previous admissions. Patient had not been able to eat or drink well since that. And had been losing weight with assisted abdominal pain so she came into the ED to be evaluated for TPN. She was admitted to be managed for severe protein calorie malnutrition. Her BMI was only 11.2. Gastroenterology was consulted to evaluate for PEG tube versus Corpak or Dobbhoff tube insertion. Nephrology was also consulted on account of the ESRD. She had a PEG tube inserted by gastroenterology on 07/04/2024. She was started on tube feeds per gastroenterology. There was concern about refeeding syndrome so her rate was slowly increased until it was at goal. She did have dialysis during this admission. She was discharged to alf home on 07/29/2024. She is follow-up with her primary care doctor and follow-up with nephrology and was also referred to plastic surgery on outpatient basis. Patient seen and examined prior to discharge. She was having dialysis. She complained of some chills but otherwise had no complaints. Review of symptoms otherwise negative. Labs and vitals reviewed. Home medication reviewed and reconciled. Physical Exam Const alert, oriented x3, no apparent distress and average body habitus Constitutional Narrative: very frail and thin. General Appearance: cooperative Exam Limitations: no limitations HEENT normocephalic, head/scalp atraumatic, hearing grossly normal bilaterally and moist oral mucous membranes Eyes PERRL and EOMs intact bilaterally Neck no lymphadenopathy and supple Lymph Lymphatic: no lymphadenopathy noted Resp normal respiratory effort, normal air movement, no retractions, no use of accessory muscles and clear to auscultation bilaterally Auscultation: Negative for rales, rhonchi or wheezes Cardio regular rate, regular rhythm, S1 normal heart sound, S2 normal heart sound, no murmurs, no rub, no gallops and no clicks GI normal to inspection, nondistended, normoactive bowel sounds, soft to palpation, non-tender and non-distended GI Narrative: PEG tube in situ Extremity normal to inspection, normal capillary refill, no clubbing, cyanosis or edema and no calf tenderness Extremity Narrative: Markedly reduced lean muscle mass General Extremity: no tenderness to palpation of joints or extremities Skin Skin Narrative: Wounds on bilateral great toes noted, stage I pressure ulcer on sacrum, abdominal wound noted with no signs of infection at this time General Skin Exam: no breakdown Neuro oriented x3, CN's II-XII intact bilaterally, moves all extremities, no focal motor deficits and no sensory deficits noted Neuro Narrative: Severe generalized weakness noted Sensorium / Orientation: awake, alert, oriented to person, oriented to place and oriented to time Coordination / Balance: [id number] test normal and [id number] test normal Speech: speech normal Motor Exam: strength 5/5 throughout and general weakness Psych thought process normal and cooperative Appearance: appropriate Medical Records Data Medical Nutrition Assessment Dietitian: Malnutrition Criteria Met Start: 07/24/24 10:44 Freq: Status: Active Protocol: Document 07/29/24 12:15 SLA (Rec: 07/29/24 12:15 SLA [email or web address]) Nutrition Malnutrition Evidence of Yes Malnutrition Exists Malnutrition (severe Chronic ): Evidenced By Suboptimal Energy Intake (Severe),Weight Loss (Severe), Physical Changes (Severe) Intake Problem Increased Nutrient Needs (specify) Etiology calories/protein related to increased demand for healing Signs/Symptoms as evidenced by abdominal, right heel, and gluteal cleft wounds Status Active Problem Clinical Problem Chronic Disease or Condition Related Malnutrition Etiology related to suboptimal appetite and multiple medical problems over the past ~6 months Signs/Symptoms as evidenced by 30.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 BMI = 12.0 Status Active Problem Recommendation Dietitian Will continue Regular diet as tolerated to optimize Recommendations/ oral intakes. Changes Provide Ensure plus high protein tid w/ meals for increased nutrition if consumed. Provide fortified foods at meals as able for increased cherrie/pro if consumed Continue Jevity 1.5 at 50 mL/hr with 145 mL water flush q4 hours to provide 1800kcal, 76.5 grams protein, and 1782mL water daily. Weight / BMI Weight Weight: 82 lb 10.774 oz Body Mass Index (BMI) 11.2 ABG / Lab / Microbiology Data 07/29/24 06:47 07/29/24 06:47 Laboratory: Laboratory Results - last 24 hr 07/29/24 06:47: WBC 13.8 H, RBC 3.23 L, Hgb 8.3 L, Hct 28.1 L, MCV 87.0, MCH 25.7 L, MCHC 29.5 L, RDW Std Deviation 53.6 H, RDW Coeff of Monika 17.0 H, Plt Count 222, MPV 9.3, Sodium 129 L, Potassium 4.6, Chloride Direct 95 L, Carbon Dioxide 25.0, Anion Gap 9, BUN 50 H, Creatinine 1.88 H, Estim Creat Clear Calc 19.59 L, Est GFR (MDRD) Non-Af 30 L, BUN/Creatinine Ratio 26.5 H, Glucose 121 H, Calcium 8.5, Phosphorus 3.3, Magnesium 1.8 Microbiology: Microbiology 07/25/24 07:30 Wound - Abdominal Gram Stain - Final 07/25/24 07:30 Wound - Abdominal Wound Culture - Final No growth aerobically. 07/23/24 14:45 Stool Stool Occult Blood (TUYET) - Final D/C Instructions Discharge Diet: Low fat / Low cholesterol and - (supplemental tube feeds) Weight Bearing Status: Weight bearing as tolerated Call your doctor if you observe: Fever of 101 or Higher, Shortness of breath, Dizziness, Swelling in the ankles and Chest pain DC O2, CPAP, BIPAP Needs Home O2 Discharge instructions: No Meaningful Use Info Meaningful Use Meaningful Use Diagnoses (Choose all that apply): None applicable Ischemic Stroke Statin Dosing Therapy Reference: STATIN DOSE THERAPY REFERENCE: * Patients > 75 years receive moderate or high dose statin therapy. * Patients 75 years or YOUNGER should receive HIGH intensity statin dose unless contraindicated. You will be required to document reason for non-treatment if statin daily dose does not meet guidelines. HIGH DOSE STATIN THERAPY DAILY Atorvastatin > than or = to 40 mg Rosuvastatin > than or = to 20 mg Amlodipine + Atorvastatin > than or = to 2.5/40 mg Ezetimibe + Simvastatin 10/80 mg Simvastatin 80mg Discharge Plan Admission Admit Date/Time: 07/23/24 17:23 Primary Reason for Your Visit: severe protein calorie malnutrition Attending Provider: Mar Mead Primary Care Provider: Ethan Rodriguez Consulting Providers: Angie Torres; Judd Galvin; Remedios Kessler Instructions Patient Instructions: Gastrostomy Feeding Tube Care ..., Understanding PEG Tube Feeding Discharge Orders/Prescriptions Prescriptions: Continued cyclobenzaprine 5 mg tablet 5 mg PO TID PRN (Reason: MUSCLE SPASMS) acetaminophen 325 mg tablet 650 mg PO Q4H PRN (Reason: fever) guaifenesin 100 mg/5 mL liquid 200 mg PO Q4H PRN (Reason: cough) dronabinol [Marinol] 2.5 mg capsule 2.5 mg PO BID Rx Instructions: administer before lunch and evening meal/dinner mirtazapine 30 mg tablet 30 mg PO QHS sertraline 25 mg tablet 25 mg PO DAILY Renal Vitamin 0.8 mg tablet 1 tab PO DAILY polyethylene glycol 3350 17 gram/dose powder 17 g PO QODAY Rx Instructions: EVERY OTHER DAY AT BED TIME ondansetron 4 mg tablet,disintegrating 4 mg PO DAILY PRN (Reason: nausea and vomiting) docusate sodium 100 mg tablet 100 mg PO BID PRN (Reason: constipation) midodrine 10 mg tablet 10 mg PO DAILY PRN (Reason: for SBP lower than 110 during dialysis tx) Rx Instructions: for SBP lower than 110 during dialysis tx aspirin [Adult Aspirin Regimen] 81 mg tablet,delayed release (DR/EC) 81 mg PO DAILY atorvastatin 20 mg tablet 20 mg PO QHS heparin (porcine) 5,000 unit/mL (1 mL) cartridge 5,000 unit subcut Q8H metoprolol tartrate 25 mg tablet 25 mg PO BID oxycodone 5 mg tablet 5 mg PO Q6H PRN (Reason: pain) ascorbic acid (vitamin C) 500 mg capsule 500 mg PO DAILY thiamine HCl (vitamin B1) 100 mg tablet 100 mg PO BID amlodipine 5 mg tablet 5 mg PO QHS levothyroxine 200 mcg tablet 200 mcg PO DAILY sennosides-docusate sodium [Senna Plus] 8.6-50 mg tablet 1 tab-cap PO DAILY PRN (Reason: constipation) famotidine 10 mg tablet 20 mg PO DAILY Culturelle 10 billion cell capsule 1 cap PO DAILY aluminum-magnesium hydroxide 200-200 mg/5 mL suspension 30 ml PO Q4H PRN (Reason: GI DISTRESS) Referrals / Follow Up: Angie Torres MD [Med Staff - Consulting] - Within 1 Week Ethan Rodriguez MD [Primary Care Provider] - Within 1 Week Disposition Disposition (needs filled in before D/C Order can be placed): Detention Facility Charges/Coding Visit Charges Inpatient E&M: 96008 Disch Hosp >30min
== END 2024-07-29 18:11 | disposition skilled nursing facility (03) | DRG 640 ==
LOC: ED 14:01 → MS3 18:32
PROVIDERS: Internal Medicine; Internal Medicine Gastroenterology; Physician Assistant; Emergency Provider Emergency Medicine; PCP Family Medicine; Visit Provider Student in an Organized Health Care Education/Training Program
PROC: 0DJ08ZZ Inspection of Upper Intestinal Tract, Via Natural or Artificial Opening Endoscopic (ICD-10-PCS; CPT 43235; principal; 2024-07-24 14:25)
DX: E43 Unspecified severe protein-calorie malnutrition (principal); N18.6 End stage renal disease; I12.0 Hypertensive chronic kidney disease with stage 5 chronic kidney disease or end stage renal disease; I96 Gangrene, not elsewhere classified; E87.1 Hypo-osmolality and hyponatremia; Z68.1 Body mass index [BMI] 19.9 or less, adult; D68.51 Activated protein C resistance; L89.151 Pressure ulcer of sacral region, stage 1; D63.1 Anemia in chronic kidney disease; Z66 Do not resuscitate; J43.9 Emphysema, unspecified; E03.9 Hypothyroidism, unspecified; F32.A Depression, unspecified; Z93.1 Gastrostomy status; Z99.2 Dependence on renal dialysis; E86.0 Dehydration; K29.70 Gastritis, unspecified, without bleeding; E78.5 Hyperlipidemia, unspecified; K21.9 Gastro-esophageal reflux disease without esophagitis; S31.104A Unspecified open wound of abdominal wall, left lower quadrant without penetration into peritoneal cavity, initial encounter; S91.101A Unspecified open wound of right great toe without damage to nail, initial encounter; S91.102A Unspecified open wound of left great toe without damage to nail, initial encounter; R62.7 Adult failure to thrive; X58.XXXA Exposure to other specified factors, initial encounter; G89.29 Other chronic pain; Z74.01 Bed confinement status; Z79.82 Long term (current) use of aspirin; Z79.01 Long term (current) use of anticoagulants; Z99.81 Dependence on supplemental oxygen; Z79.890 Hormone replacement therapy; Z79.899 Other long term (current) drug therapy; Z87.891 Personal history of nicotine dependence
CPT/HCPCS: 36415; 80048; 80053; 80076; 82274; 83735; 84100; 85025; 85027; 87070; 87205; 87640; 90937; 97162; 97166; 97530; 97535; 97802; 97803; 99285; P9612; A4216; G0257; J2405

== ENCOUNTER 2024-07-31 11:31 | Observation (INO) | payer OTHER, SELFPAY ==
[2024-07-31] VITALS (12 sets, daily range): BP systolic 131–173; BP diastolic 76–92; PULSE 90–98; RESP 14–21; TEMP 36.1–36.6; O2SAT 92–98; BMI 14.8; BMI 13.9
--- NOTE | 2024-07-31 11:51 | ED.VIS.GI ---
HPI HPI - GI History of Present Illness Chief Complaint: GI Bleed Detail of Chief Complaint: Reported coffee-ground emesis today. Informant: patient Abdominal Pain/Flank Pain Onset: Today Current Severity: Mild Maximum Severity: Mild Nausea/Vomiting/Emesis GI Symptom: Positive for Nausea and Vomiting Quality: Positive for Coffee ground Severity: Mild Diarrhea/Melena/Hematochezia GI Symptom: Negative for Diarrhea, Melena or Hematochezia Associated Symptoms Associated Symptoms: Negative for Dysuria, Frequency or Hematuria Narrative Narrative: 64-year-old female past medical history of prior AAA repair, factor V, end-stage renal disease gets dialysis on Monday. Only blood thinner she is on is heparin for the dialysis. Today supposedly she could not finish dialysis had nausea and vomiting and they believe she had coffee-ground emesis. Patient is a limited informant. 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) Open abdominal wall wound Factor 5 Leiden mutation, heterozygous Failure to thrive intermediate (current) use of anticoagulants Gross hematuria Retroperitoneal hematoma Constipation, unspecified Raynaud's syndrome without gangrene Hypo-osmolality and hyponatremia Hyperlipidemia, unspecified Hypothyroidism, unspecified Anemia, unspecified Need for assistance with personal care Other malaise Other abnormalities of gait and mobility Unsteadiness on feet Muscle weakness (generalized) Other symbolic dysfunctions Dysphagia, oropharyngeal phase Essential (primary) hypertension Activated protein C resistance Unspecified severe protein-calorie malnutrition Acute respiratory failure with hypoxia Emphysema, unspecified Peripheral vascular disease, unspecified Enterocolitis due to Clostridium difficile, not specified as recurrent Acute kidney failure, unspecified Leakage of aortic (bifurcation) graft (replacement), subsequent encounter Abdominal aortic aneurysm, ruptured, unspecified Home Medications ?Medication ?Instructions ?Recorded ?Last Taken ?Type aspirin 81 mg tablet,delayed 81 mg PO DAILY 03/11/24 07/23/24 History release (Adult Aspirin Regimen) atorvastatin 20 mg tablet 20 mg PO QHS 03/11/24 07/22/24 History heparin (porcine) 5,000 unit/mL (1 5,000 unit subcut Q8H 03/11/24 07/23/24 History mL) injection cartridge metoprolol tartrate 25 mg tablet 25 mg PO BID 03/11/24 07/22/24 History ascorbic acid (vitamin C) 500 mg 500 mg PO DAILY 04/11/24 07/23/24 History capsule thiamine HCl (vitamin B1) 100 mg 100 mg PO BID 04/11/24 07/23/24 History tablet cyclobenzaprine 5 mg tablet 5 mg PO TID PRN MUSCLE SPASMS 06/05/24 07/10/24 History Lactobacillus rhamnosus GG 10 1 cap PO DAILY 07/18/24 07/23/24 History billion cell capsule (Culturelle) acetaminophen 325 mg tablet 650 mg PO Q4H PRN fever 07/18/24 Unknown History aluminum-magnesium hydroxide 200 30 ml PO Q4H PRN GI DISTRESS 07/18/24 Unknown History mg-200 mg/5 mL oral suspension amlodipine 5 mg tablet 5 mg PO QHS 07/18/24 07/22/24 History docusate sodium 100 mg tablet 100 mg PO BID PRN constipation 07/18/24 Unknown History dronabinol 2.5 mg capsule (Marinol) 2.5 mg PO BID 07/18/24 07/23/24 History famotidine 10 mg tablet 20 mg PO DAILY 07/18/24 07/23/24 History guaifenesin 100 mg/5 mL oral liquid 200 mg PO Q4H PRN cough 07/18/24 07/14/24 History levothyroxine 200 mcg tablet 200 mcg PO DAILY 07/18/24 07/23/24 History midodrine 10 mg tablet 10 mg PO DAILY PRN for SBP lower 07/18/24 Unknown History than 110 during dialysis tx mirtazapine 30 mg tablet 30 mg PO QHS 07/18/24 07/22/24 History ondansetron 4 mg disintegrating 4 mg PO DAILY PRN nausea and 07/18/24 Unknown History tablet vomiting oxycodone 5 mg tablet 5 mg PO Q6H PRN pain 07/18/24 07/22/24 History polyethylene glycol 3350 17 17 g PO QODAY 07/18/24 07/21/24 History gram/dose oral powder sennosides 8.6 mg-docusate sodium 1 tab-cap PO DAILY PRN constipation 07/18/24 Unknown History 50 mg tablet (Senna Plus) sertraline 25 mg tablet 25 mg PO DAILY 07/18/24 07/23/24 History vitamin B complex-vitamin C-folic 1 tab PO DAILY 07/18/24 07/23/24 History acid 0.8 mg tablet (Renal Vitamin) bisacodyl 10 mg rectal suppository 10 mg MS DAILY PRN constipation 07/31/24 Unknown History cholecalciferol (vitamin D3) 125 125 mcg PO DAILY 07/31/24 Unknown History mcg (5,000 unit) capsule glucagon HCl 1 mg solution for 1 mg IM Q20M PRN hypoglycemia 07/31/24 Unknown History injection (Glucagon (HCl) Emergency Kit) magnesium hydroxide 400 mg/5 mL 30 ml PO DAILY PRN stomach upset 07/31/24 Unknown History oral suspension (Dulcolax (magnesium hydroxide)) Allergy/AdvReac Type Severity Reaction Status Date / Time iodine Allergy Intermediate Nausea Verified 07/31/24 11:46 shellfish derived Allergy Intermediate Nausea Verified 07/31/24 11:46 Social History Smoking Status: Former smoker Tobacco: How many years used: 40 alcohol intake: former substance use type: does not use ROS ROS ED ROS Narrative Nausea and vomiting. Coffee-ground material. Constitutional Constitutional ED: Denies chills or fever(s) ENT ENT ED: Denies ear pain Cardiovascular Cardiovascular: Denies chest pain Respiratory/Chest Respiratory/Chest: Denies cough or dyspnea Gastrointestinal Gastrointestinal: Denies abdominal pain Genitourinary Genitourinary ED: Denies dysuria or hematuria Musculoskeletal Musculoskeletal: Denies arthralgias Integumentary Denies abscess or Abrasions Neurologic Neurologic: Denies headache(s) Psychiatric Psychiatric: Denies anxiety Endocrine Endocrinology: Denies polydipsia Hematologic/Lymphatic Hematologic/Lymphatic: Denies lymphadenopathy Allergic/Immunologic Allergic/Immunologic ED: Denies mouth swelling, tongue swelling or urticaria EXAM Physical Exam Narrative Exam Narrative: 64-year-old female vital signs are stable and afebrile. She does not look septic or toxic. H EENT exam pupils round reactive light. Moist mucous membranes. Neck nontender no lymphadenopathy. Lungs clear to auscultation. Heart regular rhythm. Rate about 80. Chest wall ribs nontender. Vas-Cath on the right chest wall. Abdomen is soft nondistended normal bowel sounds without peritoneal signs. Left upper quadrant feeding tube. She is nondistended. She is thin. Moving all 4 extremities. Nontender no edema. No deformity. Neurologically she is awake. She is a limited informant. She does follow limited commands. Const Vital Signs: 07/31/24 11:46 07/31/24 12:32 07/31/24 13:00 Temperature 97.6 F L Temperature Source Axillary Pulse Rate 96 96 95 Respiratory Rate 18 14 21 H Blood Pressure 173/86 H 162/92 H 173/91 H Blood Pressure Mean 115 115 118 Pulse Ox 95 92 Oxygen Delivery Method Room Air Nasal Cannula Oxygen Flow Rate (L/min) 3 07/31/24 13:47 07/31/24 14:00 07/31/24 15:00 Temperature Temperature Source Pulse Rate 96 Respiratory Rate 20 H Blood Pressure 170/90 H 169/91 H 171/92 H Blood Pressure Mean 116 113 116 Pulse Ox 98 92 Oxygen Delivery Method Nasal Cannula Oxygen Flow Rate (L/min) 3 Positive cachectic; Negative for well nourished, obese or contractures General Appearance ED: cachectic and NAD; Negative for contractures or pallor Nutritional Appearance: cachectic; Negative for obese HEENT Reports moist mucous membranes normocephalic and atraumatic Eyes PERRL and EOMs intact bilaterally General Eye ED: Negative for pale conjunctiva or scleral icterus Neck no lymphadenopathy, supple and no JVD General: Negative for tenderness Lymph Lymphatic: Negative for other Resp normal respiratory effort and clear to auscultation bilaterally Auscultation: Negative for rales, rhonchi, wheezes or diminished lung sounds Cardio regular rate, regular rhythm, S1 normal heart sound, S2 normal heart sound and no murmurs Rate: Negative for bradycardia or tachycardic Rhythm: Negative for abnormal rhythm GI non-tender, non-distended and no masses Inspection: Negative for abdominal distention Palpation: soft; Negative for tender, guarding or rebound tenderness present Back/Spine no CVA tenderness General Back: Negative for CVA tenderness Cervical Spine: Negative for cervical spine tenderness Thoracic Spine / Upper Back: Negative for thoracic spinal tenderness Lumbar Spine / Lower Back: Negative for lumbar spinal tenderness Extremity full ROM General Extremety ED: Negative for edema or tenderness General Extremity: Negative for edema Neuro CN's II-XII intact bilaterally and moves all extremities Sensorium / Orientation: alert, oriented to person and oriented to place Motor Exam: general weakness Psych mental status grossly normal and thought process normal Mood & Affect: Negative for depressed or anxious Skin no wounds General Skin Exam: Negative for jaundice or pallor Rashes: no rashes Trauma: Negative for abrasion MDM MDM MDM Narrative Medical decision making narrative: Chronically ill 64-year-old female with reported coffee-ground emesis. Rule out upper GI bleed. Screening labs. Type and screen. IV Protonix. She had stool in the rectum on my exam. There was no gross blood. It was not black or red. Repeat exam patient is resting comfortably. She is having some epigastric abdominal pain. CT has been obtained just waiting on the official read. Patient will be admitted for upper GI bleed. She has been typed and screened. Given Protonix. Have already spoken to [facility] and hospitalist is on page for the admission. History & Record Review Discussion w/independent historian: Patient Additional record(s) reviewed:: Prior inpatient record, Prior outpatient record, Prior ED visit, Prior labs and No prior records Lab Data Attestation: I reviewed the patient's lab results. Lab results narrative: CBC shows a white count of 10. H&H is 7.7 and 25.7. She is gradually coming down on her hemoglobin over the last several. Platelets 169. PT/INR 15 and 1.2. PTT 42. Electrolytes shows sodium 129. Potassium 5.7. Gap 10. BUN of 58 creatinine 1.88 consistent with her chronic renal insufficiency. Glucose 110. Liver enzymes unremarkable. Lipase normal at 34. Blood type O+. Labs: Laboratory Results - last 24 hr 07/31/24 07/31/24 11:55 11:55 WBC 10.7 RBC 3.00 L Hgb 7.7 L Hct 25.7 L MCV 85.7 MCH 25.7 L MCHC 30.0 L RDW Std Deviation 53.7 H RDW Coeff of Monika 17.3 H Plt Count 169 MPV 9.7 Immature Gran % (Auto) 3.200 H Neut % (Auto) 86.5 H Lymph % (Auto) 3.7 L Wilkin % (Auto) 5.8 Eos % (Auto) 0.5 Baso % (Auto) 0.3 Absolute Neuts (auto) 9.3 H Absolute Lymphs (auto) 0.40 L Nucleated RBC % 0 PT 15.3 H INR 1.2 APTT 42.1 H Sodium 129 L Potassium 5.7 H Chloride 95 L Carbon Dioxide 24.7 Anion Gap 10 BUN 58 H Creatinine 1.88 H Estim Creat Clear Calc 24.29 L Est GFR (MDRD) Non-Af 30 L BUN/Creatinine Ratio 30.7 H Glucose 110 H Calcium 9.0 Total Bilirubin 0.19 AST 20 ALT < 5 Alkaline Phosphatase 66 Total Protein 5.9 Albumin 2.3 L Globulin 3.6 Albumin/Globulin Ratio 0.6 L Lipase 34 Blood Type O POSITIVE Antibody Screen POSITIVE Antibody Identification ANTI-C ANTI-Fya Discharge Plan Dx/Rx/DC Orders Clinical Impression: Coffee ground emesis, Anemia, Chronic anticoagulation, Acute upper gastrointestinal bleeding, Chronic kidney disease with end stage renal 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, Factor V Leiden Disposition Disposition: Acute Care Hospital [facility]
[2024-07-31 12:02] LABS: Absolute Neutrophil Count 9.3 X10^3/uL (2.0-7.7); Basophil# 0.03 X10^3/uL; Basophil% 0.3 % (0-1); Eosinophil# 0.05 X10^3/uL; Eosinophils% 0.5 % (0-5); Hematocrit 25.7 % (37-47); Hemoglobin 7.7 g/dL (12.0-15.0); Lymphocyte % 3.7 % (19-41); Mean Corpuscular Hgb 25.7 pg (27.0-32.0); Mean Corpuscular Volume 85.7 fL (81-99); Mean Platelet Vol. 9.7 fl (6.2-12.0); Monocyte# 0.62 X10^3/uL; Monocyte% 5.8 % (0-10); NRBC Flagged by Analyzer 0 % (0-5); Neutrophil # 9.29 X10^3/uL (2.7-7.7); Neutrophil % 86.5 % (47-70); POSITIVE DIFFERENTIAL YES; Platelet Count 169 K/mm3 (150-450); RBC Distribution Width CV 17.3 % (11.6-14.6); RBC Distribution Width SD 53.7 fl (35.1-43.9); White Blood Count 10.7 K/mm3 (4.4-11.0)
[2024-07-31] MEDS: Pantoprazole Sodium 40 MG in 0.9% Normal Saline (100mL MB+) 100 ML 330 MG IV ×2 (12:09→22:28)
[2024-07-31 12:12] LABS: International Normalized Ratio 1.2; Partial Thromboplast Time 42.1 Seconds (24.1-36.2); Prothrombin Time (Protime)PT. 15.3 SECONDS (11.7-14.9)
[2024-07-31 12:21] LABS: Lipase 34 U/L (13-75)
[2024-07-31 12:23] LABS: ALB/GLOB Ratio 0.6 RATIO (0.9-2.4); AST(SGOT) 20 U/L (<=31); Alanine Aminotransfer ALT/SGPT < 5 U/L (<=34); Albumin, Serum 2.3 g/dL (3.4-4.8); Alkaline Phosphatase 66 U/L (35-104); Anion Gap 10 (5-15); BUN 58 mg/dL (4-19); BUN/Creat Ratio 30.7 RATIO (10-20); Carbon Dioxide 24.7 mmol/L (21.0-32.0); Chloride 95 mmol/L (98-108); Creatinine, Serum 1.88 mg/dL (0.70-1.20); EST Glomerular Filtration Rate 30 (>60); Estimated Creatinine Clearance 24.29 ml/min (50-250); Globulin 3.6 g/dL (2.2-4.2); Glucose 110 mg/dL (70-99); Potassium 5.7 mmol/L (3.3-5.1); Protein, Total 5.9 g/dL (5.9-8.4); Sodium Level 129 mmol/L (133-145); Total Bilirubin 0.19 mg/dL (0.00-1.30)
[2024-07-31] MEDS: Ondansetron 4 MG/2 ML Vial IV (13:45)
[2024-07-31] MEDS: Morphine 4 MG/ML Syringe IV (13:45)
[2024-07-31] MEDS: Metoclopramide 10 MG/2 ML Vial 5 MG IV (14:10)
--- NOTE | 2024-07-31 15:04 | CT_ITS ---
PROCEDURE: ABDOMEN/PELVIS W IV CONT ONLY REASON FOR EXAM: Right flank pain rule out kidney stone TECHNIQUE: CT abdomen and pelvis was performed with IV contrast. IV CONTRAST: 100 mL Isovue COMPARISON: 07/18/2024. FINDINGS: Exam limited by diffuse profound anasarca making delineation of tissue planes and abdominal pelvic visceral margins challenging. Lung bases: Small right and [id number] left pleural effusions, enlarged. Adjacent airspace disease. Severe coronary atherosclerosis and/or stents. Fluid distention of the visualized distal esophagus with wall thickening and mucosal hyperemia. Aortic greater than mitral annular calcification. Thoracic aortic atherosclerosis.. Liver: Mild periportal edema. Minimally heterogeneous hepatic parenchymal enhancement. Spleen: Splenomegaly, 14.5 cm coronal. Heterogeneous enhancement of the spleen with scattered peripheral areas of hypoenhancement which could indicate small splenic infarcts. Gallbladder: Suspect a small amount of dependent sludge and/or noncalcified stones. Mild nonspecific gallbladder wall thickening. Pancreas: Atrophic.. Adrenals: Poorly visualized on the right. No definite nodule or mass. Kidneys: Markedly abnormal appearance of the right kidney. Enlarging complex multiloculated ill-defined collection in the right renal fossa measuring above simple fluid density and some areas with other areas of macroscopic fat attenuation, difficult to measure, unable to trace the ureters. Now roughly 11.0 x 6.4 x 15.1 cm. Right renal parenchyma is no longer recognizable in the region. There is now a collection extending across the midline into the left retroperitoneum possibly within the substance of the left psoas muscle measuring roughly 3.5 x 1.6 x 6.5 cm. Heterogeneous enhancement of the left kidney with multifocal small renal cortical infarcts versus scarring. Bowel: Massive distended stomach and proximal duodenum to a lesser degree. Trace high-density material layering dependently in the stomach, presumed ingested material. Suspect mild gastric wall thickening most notable in the antro pyloric region. Interval placement of a gastrostomy tube, unclear if this remains within the gastric lumen or immediately abuts the anterior gastric wall and body wall. Limited evaluation of the remaining small and large bowel due to diffuse and profound mesenteric edema, unable to exclude small and large bowel wall thickening/enterocolitis. 6.8 cm rectal stool ball. Diverticulosis. Appendix not identified. Lymph nodes: Apparent calcification of inguinal and iliac chain nodes of uncertain etiology possibly related to previous lymphangiography. A component may reflect vascular calcification. No gross lymphadenopathy evident allowing for limitations. Vasculature: Better evaluated on recent CTA. Atherosclerosis. Likely aorto bi- iliac bypass grafting. Patent left iliac stent. Mass-effect on the IVC and adjacent retroperitoneal structures by the above right renal fossa collection. Peritoneum: Right retroperitoneal collection as above. Profound diffuse mesenteric and retroperitoneal edema making delineation of tissue planes and abdominopelvic visceral margins challenging. Small volume free intraperitoneal fluid with peritoneal hyperenhancement/thickening. Grossly similar additional rim enhancing fluid collection along the left pelvis abutting the iliacus muscle measuring 3.6 x 2.1 x 2.7 cm. Bladder: Grossly unremarkable. Reproductive Organs: Not well seen, no definite abnormality. Body Wall: Apparent ulcer with overlying bandage in the left mid anterior abdominal wall. Profound diffuse body wall edema of tissue planes challenging. Bones: Degenerative disc disease greatest at L5-S1. Demineralization. Similar likely degenerative sclerosis along the anterior SI joints. Similar presumed bone island in the left iliac bone. CT/Abdomen/Pelvis W IV Cont ONLY IMPRESSION: 1. Exam limited by profound anasarca, including similar severe diffuse mesenter ic/retroperitoneal and body wall edema, enlarging pleural effusions, and increasing free intraperitoneal fluid. Mild hepatic per iportal edema and nonspecific gallbladder wall thickening maybe related findings. Correlate for clinical evidence of cholangi tis. If there is clinical concern for gallbladder pathology recommend right upper quadrant ultrasound and/or HIDA. 2. Redemonstrated retroperitoneal and left pelvic collections as detailed, larg est in the right renal fossa is complex and has enlarged now measuring 11.0 cm, now extending across the midline into the left retroperitoneum and likely into the left psoas muscle. Right renal parenchyma is no longer recognizable; unclear if a componen t reflects markedly abnormal appearance of the renal parenchyma with hydronephrosis or a true collection. Multifocal abscess is cannot be excluded by imaging. Given abutment of presumed aorto iliac bypass graft material, graft infection is certainly a p ossibility. Correlate with presentation and medical/surgical history. 3. Increasing small volume free intraperitoneal fluid as above with peritoneal hyperenhancement which may indicate peritonitis. 4. Interval placement of a gastrostomy tube, unclear if this remains within the gastric lumen or immediately abuts the anterior gastric wall and body wall. Correlate with exam/function and consider radiogra phic confirmation with contrast administration per the tube. 5. Findings suggesting esophagitis and mild gastritis. Massively distended sto mach and proximal duodenum to a lesser degree, question associated gastric outlet obstruction related to right renal fossa fin dings. Fluid distention of the visualized lower thoracic esophagus suggesting gastroesophageal reflux and placing the patient a t risk for aspiration. Consider NG/OG decompression. 6. Airspace disease adjacent to bilateral pleural effusions may reflect esperanza sive atelectasis and/or pneumonia. 7. Splenomegaly. Heterogeneous enhancement of the spleen with scattered periphe ral areas of hypoenhancement which could indicate small splenic infarcts. Suspect small renal infarcts are also present. Note t hat this constellation suggest a possible arterial embolic etiology. 8. Unable to exclude enterocolitis. 9. 6.8 cm rectal stool ball. 10. Additional description as above. Reading Location: [id number]
--- NOTE | 2024-07-31 15:27 | HP.PCM.HOS_ITS ---
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) Open abdominal wall wound Factor 5 Leiden mutation, heterozygous Failure to thrive MCFP (current) use of anticoagulants Gross hematuria Retroperitoneal hematoma Constipation, unspecified Raynaud's syndrome without gangrene Hypo-osmolality and hyponatremia Hyperlipidemia, unspecified Hypothyroidism, unspecified Anemia, unspecified Need for assistance with personal care Other malaise Other abnormalities of gait and mobility Unsteadiness on feet Muscle weakness (generalized) Other symbolic dysfunctions Dysphagia, oropharyngeal phase Essential (primary) hypertension Activated protein C resistance Unspecified severe protein-calorie malnutrition Acute respiratory failure with hypoxia Emphysema, unspecified Peripheral vascular disease, unspecified Enterocolitis due to Clostridium difficile, not specified as recurrent Acute kidney failure, unspecified Leakage of aortic (bifurcation) graft (replacement), subsequent encounter Abdominal aortic aneurysm, ruptured, unspecified Home Medications ?Medication ?Instructions ?Recorded ?Last Taken ?Type aspirin 81 mg tablet,delayed 81 mg PO DAILY 03/11/24 0 07/23/24 History release (Adult Aspirin Regimen) atorvastatin 20 mg tablet 20 mg PO QHS 03/11/24 History heparin (porcine) 5,000 unit/mL (1 5,000 unit subcut Q 8H 03/11/24 07/23/24 History mL) injection cartridge metoprolol tartrate 25 mg tablet 25 mg PO BID 03/11/24 07/22/24 History ascorbic acid (vitamin C) 500 mg 500 mg PO DAILY 04/1107/23/24 History capsule thiamine HCl (vitamin B1) 100 mg 100 mg PO BID 4 07/23/24 History tablet cyclobenzaprine 5 mg tablet 5 mg PO TID PRN MUSCLE SPA SMS 06/05/24 07/10/24 History Lactobacillus rhamnosus GG 10 1 cap PO DAILY 07/18/24 07/23/24 History billion cell capsule (Culturelle) acetaminophen 325 mg tablet 650 mg PO Q4H PRN fever Unknown History aluminum-magnesium hydroxide 200 30 ml PO Q4H PRN GI D ISTRESS 07/18/24 Unknown History mg-200 mg/5 mL oral suspension amlodipine 5 mg tablet 5 mg PO QHS 07/18/24 5 History docusate sodium 100 mg tablet 100 mg PO BID PRN consti pation 07/18/24 Unknown History dronabinol 2.5 mg capsule (Marinol) 2.5 mg PO BID 06/3007/23/24 History famotidine 10 mg tablet 20 mg PO DAILY 07/18/2406/30 History guaifenesin 100 mg/5 mL oral liquid 200 mg PO Q4H PRN cough 07/18/24 07/14/24 History levothyroxine 200 mcg tablet 200 mcg PO DAILY 07/18/24 07/23/24 History midodrine 10 mg tablet 10 mg PO DAILY PRN for SBP l ower 07/18/24 Unknown History than 110 during dialysis tx mirtazapine 30 mg tablet 30 mg PO QHS 07/18/24 History ondansetron 4 mg disintegrating 4 mg PO DAILY PRN naus ea and 07/18/24 Unknown History tablet vomiting oxycodone 5 mg tablet 5 mg PO Q6H PRN pain 5 07/22/24 History polyethylene glycol 3350 17 17 g PO QODAY 07/18/24 History gram/dose oral powder sennosides 8.6 mg-docusate sodium 1 tab-cap PO DAILY P RN constipation 07/18/24 Unknown History 50 mg tablet (Senna Plus) sertraline 25 mg tablet 25 mg PO DAILY 07/18/2406/30 History vitamin B complex-vitamin C-folic 1 tab PO DAILY 07/1807/23/24 History acid 0.8 mg tablet (Renal Vitamin) bisacodyl 10 mg rectal suppository 10 mg OR DAILY PRN constipation 07/31/24 Unknown History cholecalciferol (vitamin D3) 125 125 mcg PO DAILY 10/20 Unknown History mcg (5,000 unit) capsule glucagon HCl 1 mg solution for 1 mg IM Q20M PRN hypogl ycemia 07/31/24 Unknown History injection (Glucagon (HCl) Emergency Kit) magnesium hydroxide 400 mg/5 mL 30 ml PO DAILY PRN sto mach upset 07/31/24 Unknown History oral suspension (Dulcolax (magnesium hydroxide)) Allergy/AdvReac Type Severity Reaction Status Date / Time iodine Allergy Intermediate Nausea Verified 07/31/24 11:46 shellfish derived Allergy Intermediate Nausea Verified 07/31/24 11:46 Social History Smoking Status: Former smoker Tobacco: How many years used: 40 alcohol intake: former substance use type: does not use Vital Signs Vital Signs Vital Signs: 07/31/24 11:46 07/31/24 12:32 07/31/24 13:00 Temperature 97.6 F L Temperature Source Axillary Pulse Rate 96 96 95 Respiratory Rate 18 14 21 H Blood Pressure 173/86 H 162/92 H 173/91 H Blood Pressure Mean 115 115 118 Pulse Ox 95 92 Oxygen Delivery Method Room Air Nasal Cannula Oxygen Flow Rate (L/min) 3 07/31/24 13:47 07/31/24 14:00 07/31/24 15:00 Temperature Temperature Source Pulse Rate 96 Respiratory Rate 20 H Blood Pressure 170/90 H 169/91 H 171/92 H Blood Pressure Mean 116 113 116 Pulse Ox 98 92 Oxygen Delivery Method Nasal Cannula Oxygen Flow Rate (L/min) 3 Weight Weight: 49.6 kg Body Mass Index (BMI) 14.8 Results Lab / Micro Data 07/31/24 11:55 07/31/24 11:55 Labs: Laboratory Results - last 24 hr 07/31/24 11:55: WBC 10.7, RBC 3.00 L, Hgb 7.7 L, Hct 25.7 L, MCV 85.7, MCH 25.7 L, MCHC 30.0 L, RDW Std Deviation 53.7 H, RDW Coeff of Monika 17.3 H, Plt Count 169, MPV 9.7, Immature Gran % (Auto) 3.200 H, Neut % (Auto) 86.5 H, Lymph % (Auto) 3.7 L, Ellis % (Auto) 5.8, Eos % (Auto) 0.5, Baso % (Auto) 0.3, Absolute Neuts (auto) 9.3 H, Absolute Lymphs (auto) 0.40 L, Nucleated RBC % 0, PT 15.3 H, INR 1.2, APTT 42.1 H, Sodium 129 L, Potassium 5.7 H, Chloride 95 L, Carbon Dioxide 24.7, Anion Gap 10, BUN 58 H, Creatinine 1.88 H, Estim Creat Clear Calc 24.29 L, Est GFR (MDRD) Non-Af 30 L, BUN/Creatinine Ratio 30.7 H, Glucose 110 H, Calcium 9.0, Total Bilirubin 0.19, AST 20, ALT < 5, Alkaline Phosphatase 66, Total Protein 5.9, Albumin 2.3 L, Globulin 3.6, Albumin/Globulin Ratio 0.6 L, Lipase 34, Blood Type O POSITIVE, Antibody Screen POSITIVE, Antibody Identification ANTI-C 07/31/24 11:55: Antibody Identification ANTI-Fya
--- NOTE | 2024-07-31 15:27 | PCM.HP.STD ---
HPI - General General Date of Admission: 07/31/24 Date of Service: 07/31/24 Chief Complaint: Episode of coffee-ground emesis HPI Narrative SCOTT OBREGON, is a 64 F who presented to [facility] ED on 07/31/2024 after an episode of coffee-ground emesis. Patient was hospitalized here from 07/23-07/29 for severe malnutrition and need for PEG tube placement for supplemental nutrition. Patient had prolonged hospitalization at outside hospital from 01/18-02/25/24 notable for endovascular leak from AAA with retroperitoneal hematoma, hemorrhagic shock, TUTU with ATN leading to permanent dialysis, left-sided chylothorax with chest tube placement, C. difficile with prolonged vancomycin taper, abdominal wound with wound VAC placement and subsequent removal about 1 month later. Patient has had worsening weight loss with severe malnutrition since then. Has had early satiety and has not been able to eat much on a regular basis. She was initially told that she could not have a PEG tube placed due to the abdominal wound but she was in fact a candidate for PEG tube placement. S/p PEG tube placement with GI on 07/24. Patient tolerated tube feeds well during recent hospitalization. Hospitalization was prolonged by weight for bed placement at group home facility. Patient was discharged to [facility] on 07/29. She went to dialysis today and during the dialysis session she had nausea with an episode of vomiting that appeared to be coffee-ground emesis. Patient is on subcu heparin 3 times daily for history of factor V Leiden. For this reason she was brought into the ED for further evaluation. PEG tube was aspirated in the ED and coffee-ground materials were removed. Hemoglobin is stable, was 7.7 today and was 7.8 on 07/29. Case was discussed with Dr. Gallegso to recommended admission with plan for EGD for further evaluation. Hospitalist was then contacted for admission. I saw the patient at bedside in the ED, sister was present. Patient is very thin and cachectic appearing. She was fatigued appearing and mildly uncomfortable appearing due to ongoing nausea. She was able to answer my questions with short appropriate responses and was alert and oriented. She reported ongoing nausea and epigastric abdominal pain. She had been given doses of Protonix, Reglan and morphine in the ED with only mild relief of her discomfort. She denies any further episodes of emesis since arrival to the ED. No other acute concerns at this time. 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) Open abdominal wall wound Factor 5 Leiden mutation, heterozygous Failure to thrive shelter (current) use of anticoagulants Gross hematuria Retroperitoneal hematoma Constipation, unspecified Raynaud's syndrome without gangrene Hypo-osmolality and hyponatremia Hyperlipidemia, unspecified Hypothyroidism, unspecified Anemia, unspecified Need for assistance with personal care Other malaise Other abnormalities of gait and mobility Unsteadiness on feet Muscle weakness (generalized) Other symbolic dysfunctions Dysphagia, oropharyngeal phase Essential (primary) hypertension Activated protein C resistance Unspecified severe protein-calorie malnutrition Acute respiratory failure with hypoxia Emphysema, unspecified Peripheral vascular disease, unspecified Enterocolitis due to Clostridium difficile, not specified as recurrent Acute kidney failure, unspecified Leakage of aortic (bifurcation) graft (replacement), subsequent encounter Abdominal aortic aneurysm, ruptured, unspecified Home Medications ?Medication ?Instructions ?Recorded ?Last Taken ?Type aspirin 81 mg tablet,delayed 81 mg PO DAILY 03/11/24 07/23/24 History release (Adult Aspirin Regimen) atorvastatin 20 mg tablet 20 mg PO QHS 03/11/24 07/22/24 History heparin (porcine) 5,000 unit/mL (1 5,000 unit subcut Q8H 03/11/24 07/23/24 History mL) injection cartridge metoprolol tartrate 25 mg tablet 25 mg PO BID 03/11/24 07/22/24 History ascorbic acid (vitamin C) 500 mg 500 mg PO DAILY 04/11/24 07/23/24 History capsule thiamine HCl (vitamin B1) 100 mg 100 mg PO BID 04/11/24 07/23/24 History tablet cyclobenzaprine 5 mg tablet 5 mg PO TID PRN MUSCLE SPASMS 06/05/24 07/10/24 History Lactobacillus rhamnosus GG 10 1 cap PO DAILY 07/18/24 07/23/24 History billion cell capsule (Culturelle) acetaminophen 325 mg tablet 650 mg PO Q4H PRN fever 07/18/24 Unknown History aluminum-magnesium hydroxide 200 30 ml PO Q4H PRN GI DISTRESS 07/18/24 Unknown History mg-200 mg/5 mL oral suspension amlodipine 5 mg tablet 5 mg PO QHS 07/18/24 07/22/24 History docusate sodium 100 mg tablet 100 mg PO BID PRN constipation 07/18/24 Unknown History dronabinol 2.5 mg capsule (Marinol) 2.5 mg PO BID 07/18/24 07/23/24 History famotidine 10 mg tablet 20 mg PO DAILY 07/18/24 07/23/24 History guaifenesin 100 mg/5 mL oral liquid 200 mg PO Q4H PRN cough 07/18/24 07/14/24 History levothyroxine 200 mcg tablet 200 mcg PO DAILY 07/18/24 07/23/24 History midodrine 10 mg tablet 10 mg PO DAILY PRN for SBP lower 07/18/24 Unknown History than 110 during dialysis tx mirtazapine 30 mg tablet 30 mg PO QHS 07/18/24 07/22/24 History ondansetron 4 mg disintegrating 4 mg PO DAILY PRN nausea and 07/18/24 Unknown History tablet vomiting oxycodone 5 mg tablet 5 mg PO Q6H PRN pain 07/18/24 07/22/24 History polyethylene glycol 3350 17 17 g PO QODAY 07/18/24 07/21/24 History gram/dose oral powder sennosides 8.6 mg-docusate sodium 1 tab-cap PO DAILY PRN constipation 07/18/24 Unknown History 50 mg tablet (Senna Plus) sertraline 25 mg tablet 25 mg PO DAILY 07/18/24 07/23/24 History vitamin B complex-vitamin C-folic 1 tab PO DAILY 07/18/24 07/23/24 History acid 0.8 mg tablet (Renal Vitamin) bisacodyl 10 mg rectal suppository 10 mg MI DAILY PRN constipation 07/31/24 Unknown History cholecalciferol (vitamin D3) 125 125 mcg PO DAILY 07/31/24 Unknown History mcg (5,000 unit) capsule glucagon HCl 1 mg solution for 1 mg IM Q20M PRN hypoglycemia 07/31/24 Unknown History injection (Glucagon (HCl) Emergency Kit) magnesium hydroxide 400 mg/5 mL 30 ml PO DAILY PRN stomach upset 07/31/24 Unknown History oral suspension (Dulcolax (magnesium hydroxide)) Allergy/AdvReac Type Severity Reaction Status Date / Time iodine Allergy Intermediate Nausea Verified 07/31/24 11:46 shellfish derived Allergy Intermediate Nausea Verified 07/31/24 11:46 Social History Smoking Status: Former smoker Tobacco: How many years used: 40 alcohol intake: former substance use type: does not use ROS Constitutional Constitutional: Reports fatigue; Denies chills, fever(s) or weakness Cardiovascular Cardiovascular: Denies chest pain Respiratory/Chest Respiratory/Chest: Denies cough or shortness of breath at rest Gastrointestinal Gastrointestinal: Reports abdominal pain, coffee ground emesis, dyspepsia and nausea; Denies constipation, diarrhea or vomiting Musculoskeletal Musculoskeletal: Denies arthralgias, back pain or myalgias Neurologic Neurologic: Denies dizziness or headache(s) Vital Signs Vital Signs Vital Signs: 07/31/24 11:46 07/31/24 12:32 07/31/24 13:00 Temperature 97.6 F L Temperature Source Axillary Pulse Rate 96 96 95 Respiratory Rate 18 14 21 H Blood Pressure 173/86 H 162/92 H 173/91 H Blood Pressure Mean 115 115 118 Pulse Ox 95 92 Oxygen Delivery Method Room Air Nasal Cannula Oxygen Flow Rate (L/min) 3 07/31/24 13:47 07/31/24 14:00 07/31/24 15:00 Temperature Temperature Source Pulse Rate 96 Respiratory Rate 20 H Blood Pressure 170/90 H 169/91 H 171/92 H Blood Pressure Mean 116 113 116 Pulse Ox 98 92 Oxygen Delivery Method Nasal Cannula Oxygen Flow Rate (L/min) 3 Weight Weight: 49.6 kg Body Mass Index (BMI) 14.8 Physical Exam Const alert and oriented x3 Constitutional Narrative: Upper middle-aged female, appears older than stated age, thin and cachectic appearing, fatigued appearing, mildly uncomfortable appearing due to ongoing nausea and abdominal pain, otherwise laying in bed and answering questions with short appropriate responses, in no acute distress. General Appearance: cooperative HEENT normocephalic, head/scalp atraumatic, hearing grossly normal bilaterally and nasal mucous membranes and turbinates normal HEENT Narrative: Dry mucous membranes. Eyes PERRL, EOMs intact bilaterally and conjunctivae normal Neck full ROM Chest inspection of chest normal Resp normal respiratory effort, normal air movement, no use of accessory muscles and clear to auscultation bilaterally Cardio regular rate, regular rhythm, no murmurs and peripheral pulses 2+ throughout GI GI Narrative: Mild tenderness to palpation in epigastric region. PEG tube site appears clean and dry. Abdomen otherwise soft and nondistended. Back/Spine normal ROM Extremity normal to inspection and no pedal edema Skin no rashes or lesions noted Neuro moves all extremities and no focal motor deficits Speech: speech normal Psych mental status grossly normal Psych Narrative: Flat affect. Mood & Affect: anxious Results Lab / Micro Data 07/31/24 11:55 07/31/24 11:55 Labs: Laboratory Results - last 24 hr 07/31/24 11:55: WBC 10.7, RBC 3.00 L, Hgb 7.7 L, Hct 25.7 L, MCV 85.7, MCH 25.7 L, MCHC 30.0 L, RDW Std Deviation 53.7 H, RDW Coeff of Monika 17.3 H, Plt Count 169, MPV 9.7, Immature Gran % (Auto) 3.200 H, Neut % (Auto) 86.5 H, Lymph % (Auto) 3.7 L, [place] % (Auto) 5.8, Eos % (Auto) 0.5, Baso % (Auto) 0.3, Absolute Neuts (auto) 9.3 H, Absolute Lymphs (auto) 0.40 L, Nucleated RBC % 0, PT 15.3 H, INR 1.2, APTT 42.1 H, Sodium 129 L, Potassium 5.7 H, Chloride 95 L, Carbon Dioxide 24.7, Anion Gap 10, BUN 58 H, Creatinine 1.88 H, Estim Creat Clear Calc 24.29 L, Est GFR (MDRD) Non-Af 30 L, BUN/Creatinine Ratio 30.7 H, Glucose 110 H, Calcium 9.0, Total Bilirubin 0.19, AST 20, ALT < 5, Alkaline Phosphatase 66, Total Protein 5.9, Albumin 2.3 L, Globulin 3.6, Albumin/Globulin Ratio 0.6 L, Lipase 34, Blood Type O POSITIVE, Antibody Screen POSITIVE, Antibody Identification ANTI-C 07/31/24 11:55: Antibody Identification ANTI-Fya Assessment & Plan Assessment/Plan (1) Acute upper gastrointestinal bleeding: PLAN: Plan Patient is a 64-year-old female who presented [facility] ED on 07/31/2024 with coffee-ground emesis. 1. Suspected upper GI bleed with coffee-ground emesis ? Admit under inpatient status to PCU. GI consulted. Had episode of coffee-ground emesis at dialysis and then suction through PEG tube also showed coffee-ground material. N.p.o. at midnight with plan for EGD tomorrow. Treat with IV PPI twice daily for now. 2. History of factor V Leiden on subcutaneous heparin ? Has been on subcutaneous heparin every 8 hours. Will hold this for now in setting of upper GI bleed. 3. Adult failure to thrive with severe malnutrition and recent PEG tube placement ? PT/OT/case management consulted. Patient with prolonged hospitalization in late 2023, see HPI for further details. BMI 14. Had PEG tube placed on 07/24. Was tolerating tube feeds without issue during recent hospitalization. Holding tube feeds for now given suspected GI bleed as noted above. 4. ESRD on HD ? Nephrology consulted. HD session on 07/31 was stopped early due to coffee-ground emesis. No urgent dialysis needs currently. Appreciate further nephrology recommendations. 5. Chronic anemia secondary to renal disease ? Hemoglobin 7.7 on admit, was 7.8 on 07/29. Follow-up a.m. CBC. Transfuse for hemoglobin less than 7. Chronic medical conditions: ? Open abdominal wall wound, bilateral toe wounds with dry gangrene, stage I sacral pressure ulcer: Wound care followed during recent hospitalization and noted abdominal wound likely will not close further. No inpatient needs for toe wounds or sacral pressure ulcer either. Continue strategies to prevent progression of sacral wound while inpatient. ? History of PAD, hypertension, hyperlipidemia: Will hold baby aspirin for now. Okay to continue home amlodipine, Lopressor and statin. ? GERD: Treating with IV PPI twice daily as noted above. ? Hypothyroidism: Continue home Synthroid. ? Depression: Continue home sertraline and mirtazapine at night. DVT prophylaxis: SCDs CODE STATUS: DNR CCA, okay to intubate Expected disposition: Back to SNF, 2 to 3 days Total clinical time spent by myself addressing the patient's medical issues, reviewing all the data, and collaborating with patient's care team: 75 minutes.
[2024-07-31] MEDS: Atorvastatin Calcium 20 MG Tablet PO (22:38)
[2024-07-31] MEDS: Metoprolol Tartrate 25 MG Tablet PO (22:38)
[2024-07-31] MEDS: amLODIPine 5 MG Tablet PO (22:38)
[2024-07-31] MEDS: Thiamine Hydrochloride 100 MG Tablet PO (22:39)
[2024-07-31] MEDS: Mirtazapine 30 MG Tablet PO (22:39)
[2024-07-31] MEDS: 0.9% Saline Lock 10 ML Syringe IV (22:54)
[2024-08-01] VITALS (20 sets, daily range): BP systolic 93–270; BP diastolic 47–86; PULSE 52–89; RESP 14–18; TEMP 36.4–36.8; O2SAT 94–100; BMI 13.9; BMI 13.7
[2024-08-01] MEDS: Levothyroxine 100 MCG Tablet 200 MCG PO (06:16)
[2024-08-01 06:31] LABS: Anion Gap 13 (5-15); BUN 68 mg/dL (4-19); BUN/Creat Ratio 34.4 RATIO (10-20); Calcium,Total 8.8 mg/dL (7.6-11.0); Carbon Dioxide 18.2 mmol/L (21.0-32.0); Chloride 97 mmol/L (98-108); Creatinine, Serum 1.97 mg/dL (0.70-1.20); EST Glomerular Filtration Rate 28 (>60); Estimated Creatinine Clearance 21.83 ml/min (50-250); Glucose 75 mg/dL (70-99); Potassium 6.4 mmol/L (3.3-5.1); Sodium Level 128 mmol/L (133-145)
--- NOTE | 2024-08-01 06:35 | PCM.HOSP.N ---
Hospitalist Note AM BMP with potassium 6.4 not noted to be hemolyzed, will initiate hyperkalemic protocol with insulin, dextrose, calcium gluconate, Kayexalate and albuterol therapy with repeat BMP approximately 2 hours following interventions.
[2024-08-01 07:21] LABS: Hematocrit 27.2 % (37-47); Hemoglobin 8.1 g/dL (12.0-15.0); Mean Corp Hgb Conc 29.8 g/dL (32-36); Mean Corpuscular Volume 87.5 fL (81-99); Mean Platelet Vol. 9.3 fl (6.2-12.0); Platelet Count 230 K/mm3 (150-450); RBC Distribution Width CV 17.6 % (11.6-14.6); RBC Distribution Width SD 56.1 fl (35.1-43.9); Red Blood Count 3.11 M/mm3 (4.2-5.4); White Blood Count 17.7 K/mm3 (4.4-11.0)
[2024-08-01] MEDS: Albuterol *CONC* 2.5mg/0.5mL VIAL.NEB. 10 MG INHALATION (08:09)
[2024-08-01] MEDS: 0.9% Saline Lock 10 ML Syringe IV ×2 (08:41→08:43)
[2024-08-01] MEDS: 0.9% Normal Saline 1,000 ML IV.SOLN. 1000 ML OPERA.SITE (08:42)
[2024-08-01] MEDS: Heparin 10,000 UNITS/10 ML Vial IV (08:42)
[2024-08-01] MEDS: PureFlow B 2K Dialysis Soln 1 BAG 6 BAG PF (08:42)
[2024-08-01] MEDS: Midodrine HCl 5 MG Tablet 10 MG PO (10:31)
--- NOTE | 2024-08-01 11:04 | PCM.PN.HOSP ---
Reason for Visit Reason for Visit: Diagnoses Gastrointestinal hemorrhage, unspecified (07/31/24) Subjective Subjective Saw patient at bedside this morning. Patient was having dialysis done when I saw her. She remained fatigued and weak appearing but similar to yesterday. She reported feeling mildly improved today and her abdominal pain was much improved. She denied any other new concerns this morning. Objective Data Objective Data Vital Signs: Vital Signs Temp Pulse Resp BP Pulse Ox O2 Del Method O2 Flow Rate 97.5 F L 81 18 99/55 L 95 Nasal Cannula 6 08/01/24 08:32 08/01/24 11:00 08/01/24 08:32 08/01/24 11:00 08/01/24 08:32 08/01/24 08:34 08/01/24 08:34 Oxygen Flow Rate (L/min) 6 Oxygen Delivery Method Nasal Cannula Weight: 46.7 kg Body Mass Index (BMI) 13.9 Intake & Output: Intake and Output for Last 24 Hours 07/30/24 07/31/24 08/01/24 23:59 23:59 23:59 Intake Total 220 / 340 180 / 180 Output Total 0 / 0 Balance 220 / 340 180 / 180 Lab / Micro Data 08/01/24 07:07 08/01/24 05:18 Labs: Laboratory Results - last 24 hr 07/31/24 11:55: WBC 10.7, RBC 3.00 L, Hgb 7.7 L, Hct 25.7 L, MCV 85.7, MCH 25.7 L, MCHC 30.0 L, RDW Std Deviation 53.7 H, RDW Coeff of Monika 17.3 H, Plt Count 169, MPV 9.7, Immature Gran % (Auto) 3.200 H, Neut % (Auto) 86.5 H, Lymph % (Auto) 3.7 L, [place] % (Auto) 5.8, Eos % (Auto) 0.5, Baso % (Auto) 0.3, Absolute Neuts (auto) 9.3 H, Absolute Lymphs (auto) 0.40 L, Nucleated RBC % 0, PT 15.3 H, INR 1.2, APTT 42.1 H, Sodium 129 L, Potassium 5.7 H, Chloride 95 L, Carbon Dioxide 24.7, Anion Gap 10, BUN 58 H, Creatinine 1.88 H, Estim Creat Clear Calc 24.29 L, Est GFR (MDRD) Non-Af 30 L, BUN/Creatinine Ratio 30.7 H, Glucose 110 H, Calcium 9.0, Total Bilirubin 0.19, AST 20, ALT < 5, Alkaline Phosphatase 66, Total Protein 5.9, Albumin 2.3 L, Globulin 3.6, Albumin/Globulin Ratio 0.6 L, Lipase 34, Blood Type O POSITIVE, Antibody Screen POSITIVE, Antibody Identification ANTI-C 07/31/24 11:55: Antibody Identification ANTI-Fya, Crossmatch See Detail 08/01/24 05:18: Sodium 128 L, Potassium 6.4 H*, Chloride 97 L, Carbon Dioxide 18.2 L, Anion Gap 13, BUN 68 H, Creatinine 1.97 H, Estim Creat Clear Calc 21.83 L, Est GFR (MDRD) Non-Af 28 L, BUN/Creatinine Ratio 34.4 H, Glucose 75, Calcium 8.8 08/01/24 07:07: WBC 17.7 H, RBC 3.11 L, Hgb 8.1 L, Hct 27.2 L, MCV 87.5, MCH 26.0 L, MCHC 29.8 L, RDW Std Deviation 56.1 H, RDW Coeff of Monika 17.6 H, Plt Count 230, MPV 9.3 Radiography Diagnostic Testing: Radiology Impression Abdomen/Pelvis CT 07/31/24 15:04 IMPRESSION: 1. Exam limited by profound anasarca, including similar severe diffuse mesenteric/retroperitoneal and body wall edema, enlarging pleural effusions, and increasing free intraperitoneal fluid. Mild hepatic periportal edema and nonspecific gallbladder wall thickening maybe related findings. Correlate for clinical evidence of cholangitis. If there is clinical concern for gallbladder pathology recommend right upper quadrant ultrasound and/or HIDA. 2. Redemonstrated retroperitoneal and left pelvic collections as detailed, largest in the right renal fossa is complex and has enlarged now measuring 11.0 cm, now extending across the midline into the left retroperitoneum and likely into the left psoas muscle. Right renal parenchyma is no longer recognizable; unclear if a component reflects markedly abnormal appearance of the renal parenchyma with hydronephrosis or a true collection. Multifocal abscess is cannot be excluded by imaging. Given abutment of presumed aorto iliac bypass graft material, graft infection is certainly a possibility. Correlate with presentation and medical/surgical history. 3. Increasing small volume free intraperitoneal fluid as above with peritoneal hyperenhancement which may indicate peritonitis. 4. Interval placement of a gastrostomy tube, unclear if this remains within the gastric lumen or immediately abuts the anterior gastric wall and body wall. Correlate with exam/function and consider radiographic confirmation with contrast administration per the tube. 5. Findings suggesting esophagitis and mild gastritis. Massively distended stomach and proximal duodenum to a lesser degree, question associated gastric outlet obstruction related to right renal fossa findings. Fluid distention of the visualized lower thoracic esophagus suggesting gastroesophageal reflux and placing the patient at risk for aspiration. Consider NG/OG decompression. 6. Airspace disease adjacent to bilateral pleural effusions may reflect compressive atelectasis and/or pneumonia. 7. Splenomegaly. Heterogeneous enhancement of the spleen with scattered peripheral areas of hypoenhancement which could indicate small splenic infarcts. Suspect small renal infarcts are also present. Note that this constellation suggest a possible arterial embolic etiology. 8. Unable to exclude enterocolitis. 9. 6.8 cm rectal stool ball. 10. Additional description as above. Reading Location: [facility] Physical Exam Const alert and oriented x3 Constitutional Narrative: Upper middle-aged female, appears older than stated age, thin and cachectic appearing, fatigued appearing, mildly uncomfortable appearing due to ongoing nausea and abdominal pain, otherwise laying in bed and answering questions with short appropriate responses, in no acute distress. Stable. General Appearance: cooperative HEENT normocephalic, head/scalp atraumatic, hearing grossly normal bilaterally and nasal mucous membranes and turbinates normal HEENT Narrative: Dry mucous membranes. Eyes PERRL, EOMs intact bilaterally and conjunctivae normal Neck full ROM Chest inspection of chest normal Resp normal respiratory effort, normal air movement, no use of accessory muscles and clear to auscultation bilaterally Cardio regular rate, regular rhythm, no murmurs and peripheral pulses 2+ throughout GI GI Narrative: Mild tenderness to palpation in epigastric region. PEG tube site appears clean and dry. Abdomen otherwise soft and nondistended. Stable. Back/Spine normal ROM Extremity normal to inspection and no pedal edema Skin no rashes or lesions noted Neuro moves all extremities and no focal motor deficits Speech: speech normal Psych mental status grossly normal Psych Narrative: Flat affect. Assessment & Plan Assessment/Plan (1) Acute upper gastrointestinal bleeding: PLAN: Plan Patient is a 64-year-old female who presented [facility] ED on 07/31/2024 with coffee-ground emesis. 1. Suspected upper GI bleed with coffee-ground emesis ? GI following. Had episode of coffee-ground emesis at dialysis and then suction through PEG tube also showed coffee-ground material. CT abdomen pelvis notably showed concern for esophagitis versus gastritis. N.p.o. at midnight with plan for EGD tomorrow. Continue treatment with IV PPI twice daily for now. 2. History of factor V Leiden on subcutaneous heparin ? Has been on subcutaneous heparin every 8 hours. Continue to hold this for now in setting of upper GI bleed. 3. Adult failure to thrive with severe malnutrition and recent PEG tube placement ? PT/OT/case management following. Patient with prolonged hospitalization in late 2023, see HPI for further details. BMI 14. Had PEG tube placed on 07/24. Was tolerating tube feeds without issue during recent hospitalization. Holding tube feeds for now given suspected GI bleed as noted above. 4. ESRD on HD, hyperkalemia ? Nephrology following. HD session on 07/31 was stopped early due to coffee-ground emesis. No urgent dialysis needs on 07/31 but found to have potassium of 6.4 on morning of 08/01. Had HD session done on morning of 08/01. Continue to monitor daily BMP. Appreciate nephrology assistance. 5. Chronic anemia secondary to renal disease ? Hemoglobin 7.7 on admit, was 7.8 on 07/29. Stable at 8.1 on hospital day 2. Continue to monitor CBC daily and transfuse for hemoglobin less than 7. Chronic medical conditions: ? Open abdominal wall wound, bilateral toe wounds with dry gangrene, stage I sacral pressure ulcer: Wound care followed during recent hospitalization and noted abdominal wound likely will not close further. No inpatient needs for toe wounds or sacral pressure ulcer either. Continue strategies to prevent progression of sacral wound while inpatient. ? History of PAD, hypertension, hyperlipidemia: Will hold baby aspirin for now. Okay to continue home amlodipine, Lopressor and statin. ? GERD: Treating with IV PPI twice daily as noted above. ? Hypothyroidism: Continue home Synthroid. ? Depression: Continue home sertraline and mirtazapine at night. DVT prophylaxis: SCDs CODE STATUS: DNR CCA, okay to intubate Expected disposition: Back to SNF, 2 to 3 days Total clinical time spent by myself addressing the patient's medical issues, reviewing all the data, and collaborating with patient's care team: 35 minutes. Charges/Coding Visit Charges Inpatient E&M: 92299 Subs Hosp L2
--- NOTE | 2024-08-01 11:35 | CPS ---
Attempted to do SMI and Pep with pt at this time. Nurse told this therapist to come back and do them later since pt had a visitor. This therapist informed pt's nurse we would see the pt tomorrow then. PSN department workflow is high along with the department have 2 call offs for the day. The likely bhandari of being able to come back later is low.
--- NOTE | 2024-08-01 11:56 | WOUNDNOTE ---
Pt currently getting dialysis. will assess wounds later today.
[2024-08-01] MEDS: Metoprolol Tartrate 25 MG Tablet PO ×2 (14:30→22:30)
[2024-08-01] MEDS: Pantoprazole Sodium 40 MG in 0.9% Normal Saline (100mL MB+) 100 ML 330 MG IV ×2 (14:30→22:31)
[2024-08-01] MEDS: Thiamine Hydrochloride 100 MG Tablet PO ×2 (14:31→22:31)
[2024-08-01] MEDS: Cholecalciferol (Vit D3) 125 MCG CAPSULE (5,000 UNITS) PO (14:31)
[2024-08-01] MEDS: Sertraline 50 MG Tablet 25 MG PO (14:31)
[2024-08-01] MEDS: Folic Acid/Vitamin B Comp W-C 1 Capsule 1 CAP PO (14:31)
[2024-08-01] MEDS: Lactobacillis Acidophilus 1 CAP PO (14:31)
[2024-08-01] MEDS: Ascorbic Acid 500 MG Tablet PO (14:31)
--- NOTE | 2024-08-01 14:49 | WOUNDNOTE ---
wound photo: left abdomen
--- NOTE | 2024-08-01 14:49 | WOUNDNOTE ---
wound photo: left foot
--- NOTE | 2024-08-01 14:50 | WOUNDNOTE ---
wound photo: right foot
--- NOTE | 2024-08-01 15:29 | PCM.CONS.R ---
Assessment & Plan Assessment/Plan (1) End stage renal disease: PLAN: ESRD Hyperkalemia Dialysis today. Seen on dialysis. See orders/flowsheets. GI bleed management as per gastroenterology service. HPI Consult Data Date of Consult: 08/01/24 HPI Narrative Reason for Consultation: esrd HPI Narrative: SCOTT OBREGON, is a 64 F who presents On hemodialysis, 4 times a week. Last dialysis was Monday. Could not go to dialysis due to weakness. Severe watery diarrhea, nonbloody. Mother had influenza A. Currently breathing looks acceptable. Potassium is high at 6.7. Will plan for dialysis today. Likely repeat dialysis tomorrow. 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 Gross hematuria Retroperitoneal hematoma Constipation, unspecified Raynaud's syndrome without gangrene Hypo-osmolality and hyponatremia Hyperlipidemia, unspecified Hypothyroidism, unspecified Anemia, unspecified Need for assistance with personal care Other malaise Other abnormalities of gait and mobility Unsteadiness on feet Muscle weakness (generalized) Other symbolic dysfunctions Dysphagia, oropharyngeal phase Essential (primary) hypertension Activated protein C resistance Unspecified severe protein-calorie malnutrition Acute respiratory failure with hypoxia Emphysema, unspecified Peripheral vascular disease, unspecified Enterocolitis due to Clostridium difficile, not specified as recurrent Acute kidney failure, unspecified Leakage of aortic (bifurcation) graft (replacement), subsequent encounter Abdominal aortic aneurysm, ruptured, unspecified Home Medications ?Medication ?Instructions ?Recorded ?Last Taken ?Type aspirin 81 mg tablet,delayed 81 mg PO DAILY 03/11/24 07/23/24 History release (Adult Aspirin Regimen) atorvastatin 20 mg tablet 20 mg PO QHS 03/11/24 07/22/24 History heparin (porcine) 5,000 unit/mL (1 5,000 unit subcut Q8H 03/11/24 07/23/24 History mL) injection cartridge metoprolol tartrate 25 mg tablet 25 mg PO BID 03/11/24 07/22/24 History ascorbic acid (vitamin C) 500 mg 500 mg PO DAILY 04/11/24 07/23/24 History capsule thiamine HCl (vitamin B1) 100 mg 100 mg PO BID 04/11/24 07/23/24 History tablet cyclobenzaprine 5 mg tablet 5 mg PO TID PRN MUSCLE SPASMS 06/05/24 07/10/24 History Lactobacillus rhamnosus GG 10 1 cap PO DAILY 07/18/24 07/23/24 History billion cell capsule (Culturelle) acetaminophen 325 mg tablet 650 mg PO Q4H PRN fever 07/18/24 Unknown History aluminum-magnesium hydroxide 200 30 ml PO Q4H PRN GI DISTRESS 07/18/24 Unknown History mg-200 mg/5 mL oral suspension amlodipine 5 mg tablet 5 mg PO QHS 07/18/24 07/22/24 History docusate sodium 100 mg tablet 100 mg PO BID PRN constipation 07/18/24 Unknown History dronabinol 2.5 mg capsule (Marinol) 2.5 mg PO BID 07/18/24 07/23/24 History famotidine 10 mg tablet 20 mg PO DAILY 07/18/24 07/23/24 History guaifenesin 100 mg/5 mL oral liquid 200 mg PO Q4H PRN cough 07/18/24 07/14/24 History levothyroxine 200 mcg tablet 200 mcg PO DAILY 07/18/24 07/23/24 History midodrine 10 mg tablet 10 mg PO DAILY PRN for SBP lower 07/18/24 Unknown History than 110 during dialysis tx mirtazapine 30 mg tablet 30 mg PO QHS 07/18/24 07/22/24 History ondansetron 4 mg disintegrating 4 mg PO DAILY PRN nausea and 07/18/24 Unknown History tablet vomiting oxycodone 5 mg tablet 5 mg PO Q6H PRN pain 07/18/24 07/22/24 History polyethylene glycol 3350 17 17 g PO QODAY 07/18/24 07/21/24 History gram/dose oral powder sennosides 8.6 mg-docusate sodium 1 tab-cap PO DAILY PRN constipation 07/18/24 Unknown History 50 mg tablet (Senna Plus) sertraline 25 mg tablet 25 mg PO DAILY 07/18/24 07/23/24 History vitamin B complex-vitamin C-folic 1 tab PO DAILY 07/18/24 07/23/24 History acid 0.8 mg tablet (Renal Vitamin) bisacodyl 10 mg rectal suppository 10 mg NV DAILY PRN constipation 07/31/24 Unknown History cholecalciferol (vitamin D3) 125 125 mcg PO DAILY 07/31/24 Unknown History mcg (5,000 unit) capsule glucagon HCl 1 mg solution for 1 mg IM Q20M PRN hypoglycemia 07/31/24 Unknown History injection (Glucagon (HCl) Emergency Kit) magnesium hydroxide 400 mg/5 mL 30 ml PO DAILY PRN stomach upset 07/31/24 Unknown History oral suspension (Dulcolax (magnesium hydroxide)) Allergy/AdvReac Type Severity Reaction Status Date / Time iodine Allergy Intermediate Nausea Verified 07/31/24 11:46 shellfish derived Allergy Intermediate Nausea Verified 07/31/24 11:46 Social History Smoking Status: Former smoker Tobacco: How many years used: 40 alcohol intake: former substance use type: does not use ROS ROS Narrative Negative except above Physical Exam Narrative Alert awake oriented x 3 no obvious distress no pallor no icterus no JVD s1s2 no murmurs lungs clear abdomen soft no organomegaly no edema Medical Records Data Medical Nutrition Assessment Dietitian: Malnutrition Criteria Met Start: 08/01/24 12:11 Freq: Status: Active Protocol: Document 08/01/24 12:12 LO (Rec: 08/01/24 12:12 LO [id number]) Nutrition Malnutrition Evidence of Yes Malnutrition Exists Malnutrition (severe Chronic ): Evidenced By Suboptimal Energy Intake (Severe),Weight Loss (Severe) Intake Problem Increased Nutrient Needs (specify) Etiology protein related to increased demand for healing Signs/Symptoms as evidenced by left lower abdominal wound and coccyx pressure injury Status Active Problem Clinical Problem Chronic Disease or Condition Related Malnutrition Etiology severe related to suboptimal appetite and multile medical problems over the past 6 months including c. diff and AAA Signs/Symptoms as evidenced by 10.8kg (18.7%) unintentional weight loss in ~5 months and PO intakes meeting <75% of estimated nutrition needs for ~5 months; BMI 14 Status Active Problem Recommendation Dietitian Recommend advancing diet as tolerated to Regular when Recommendations/ medically able to optimize oral intakes. Changes Recommend 120mL ensure plus high protein 4x daily with medpass and Pramod BID with meals to provide supplemental energy and help promote wound healing. When medically able recommend via PEG tube, enteral nutrition of Jevity 1.5 at 50mL/hr x24 hours Lab / Micro Data 08/01/24 07:07 08/01/24 05:18 Labs: Laboratory Results - last 24 hr 07/31/24 11:55: Blood Type O POSITIVE, Antibody Screen POSITIVE, Antibody Identification ANTI-C 07/31/24 11:55: Antibody Identification ANTI-Fya, Crossmatch See Detail 08/01/24 05:18: Sodium 128 L, Potassium 6.4 H*, Chloride 97 L, Carbon Dioxide 18.2 L, Anion Gap 13, BUN 68 H, Creatinine 1.97 H, Estim Creat Clear Calc 21.83 L, Est GFR (MDRD) Non-Af 28 L, BUN/Creatinine Ratio 34.4 H, Glucose 75, Calcium 8.8 08/01/24 07:07: WBC 17.7 H, RBC 3.11 L, Hgb 8.1 L, Hct 27.2 L, MCV 87.5, MCH 26.0 L, MCHC 29.8 L, RDW Std Deviation 56.1 H, RDW Coeff of Monika 17.6 H, Plt Count 230, MPV 9.3 Imaging Radiology Impression Abdomen/Pelvis CT 07/31/24 15:04 IMPRESSION: 1. Exam limited by profound anasarca, including similar severe diffuse mesenteric/retroperitoneal and body wall edema, enlarging pleural effusions, and increasing free intraperitoneal fluid. Mild hepatic periportal edema and nonspecific gallbladder wall thickening maybe related findings. Correlate for clinical evidence of cholangitis. If there is clinical concern for gallbladder pathology recommend right upper quadrant ultrasound and/or HIDA. 2. Redemonstrated retroperitoneal and left pelvic collections as detailed, largest in the right renal fossa is complex and has enlarged now measuring 11.0 cm, now extending across the midline into the left retroperitoneum and likely into the left psoas muscle. Right renal parenchyma is no longer recognizable; unclear if a component reflects markedly abnormal appearance of the renal parenchyma with hydronephrosis or a true collection. Multifocal abscess is cannot be excluded by imaging. Given abutment of presumed aorto iliac bypass graft material, graft infection is certainly a possibility. Correlate with presentation and medical/surgical history. 3. Increasing small volume free intraperitoneal fluid as above with peritoneal hyperenhancement which may indicate peritonitis. 4. Interval placement of a gastrostomy tube, unclear if this remains within the gastric lumen or immediately abuts the anterior gastric wall and body wall. Correlate with exam/function and consider radiographic confirmation with contrast administration per the tube. 5. Findings suggesting esophagitis and mild gastritis. Massively distended stomach and proximal duodenum to a lesser degree, question associated gastric outlet obstruction related to right renal fossa findings. Fluid distention of the visualized lower thoracic esophagus suggesting gastroesophageal reflux and placing the patient at risk for aspiration. Consider NG/OG decompression. 6. Airspace disease adjacent to bilateral pleural effusions may reflect compressive atelectasis and/or pneumonia. 7. Splenomegaly. Heterogeneous enhancement of the spleen with scattered peripheral areas of hypoenhancement which could indicate small splenic infarcts. Suspect small renal infarcts are also present. Note that this constellation suggest a possible arterial embolic etiology. 8. Unable to exclude enterocolitis. 9. 6.8 cm rectal stool ball. 10. Additional description as above. Reading Location: [id number]
--- NOTE | 2024-08-01 15:48 | CHAPLAIN ---
Type of Pastoral Visit _x__ Initial Visit ___ Follow-up Visit ___ On-call Visit ___ General Patient Visit ___ Spiritual Assessment ___ Family Conference ___ Bereavement ___ Rapid Response ___ Code Blue ___ Other (describe below) Pastoral Care Referral From _x__ Patient ___ Family ___ Nurse ___ Physician ___ Armature Winder Repair Helper ___ Sausage Stuffer ___ Other (describe below) Sacrament/Intervention _x__ Active listening ___ Anointing ___ Tenriism ___ Bereavement ___ Communion ___ Cherri exploration ___ ___ Life review ___ Prayer ___ Reconciliation ___ Sacrament of Sick _x__ Supportive presence ___ Wedding ___ Other (describe below) Pastoral Comments patient is focused on what medications she is receiving; pt states that her piano bench assembler was in to visit today and she denied other needs; offered presence and future spiritual care as desired
--- NOTE | 2024-08-01 16:07 | CASEMGMT ---
Discharge Planning A list of SNF providers including quality and resource use data and consistent with the patient's preferred geographic region ([facility]), medical needs, and insurance network was created in [employer] Guide.? This list was provided to the SW. Joellen Billy Discharge Planning Asst.
--- NOTE | 2024-08-01 16:26 | CASEMGMT ---
Social Work SW placed phone call to pt HCPOA/Sister Janette Barrow. Janette is requesting that pt is moved to a SNF that is closer to her in the [facility]. [facility]ette preferred provider is [facility]. Janette will be in tomorrow to visit pt. A referral will be made to the [facility] and if they are unable to accept, SW will provide SNF list to Janette tomorrow for additional choices. DC family medicine physician assistant updated and referral to be made to [facility]. RICKY Jimenez
--- NOTE | 2024-08-01 16:43 | CASEMGMT ---
Addendum entered by Joellen Billy 08/02/24 11:41: [facility] declined d/t no bed availability. Joellen Billy DC Planning Asst. Original Note: Discharge Planning Referral sent to [facility]. Joellen Billy DC Planning Asst.
[2024-08-01] MEDS: Dronabinol 2.5 MG Capsule PO (17:07)
--- NOTE | 2024-08-01 20:28 | EX.PCM.CON.G ---
HPI Consult Data Date of Consult: 08/01/24 HPI Narrative Reason for Consultation: GI bleed HPI Narrative: SCOTT OBREGON, is a 64 F who presented to [facility] ED on 07/31/2024 after an episode of coffee-ground emesis. Patient was hospitalized here from 07/23-07/29 for severe malnutrition and need for PEG tube placement for supplemental nutrition. Patient had prolonged hospitalization at outside hospital from 01/18-02/25/24 notable for endovascular leak from AAA with retroperitoneal hematoma, hemorrhagic shock, TUTU with ATN leading to permanent dialysis, left-sided chylothorax with chest tube placement, C. difficile with prolonged vancomycin taper, abdominal wound with wound VAC placement and subsequent removal about 1 month later. Patient has had worsening weight loss with severe malnutrition since then. Has had early satiety and has not been able to eat much on a regular basis. She was initially told that she could not have a PEG tube placed due to the abdominal wound but she was in fact a candidate for PEG tube placement. S/p PEG tube placement with GI on 07/24. Patient tolerated tube feeds well during recent hospitalization. Hospitalization was prolonged by weight for bed placement at group home facility. Patient was discharged to [facility] on 07/29. She went to dialysis today and during the dialysis session she had nausea with an episode of vomiting that appeared to be coffee-ground emesis. Patient is on subcu heparin 3 times daily for history of factor V Leiden. For this reason she was brought into the ED for further evaluation. PEG tube was aspirated in the ED and coffee-ground materials were removed. Hemoglobin is stable, was 7.7 today and was 7.8 on 07/29. 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 Gross hematuria Retroperitoneal hematoma Constipation, unspecified Raynaud's syndrome without gangrene Hypo-osmolality and hyponatremia Hyperlipidemia, unspecified Hypothyroidism, unspecified Anemia, unspecified Need for assistance with personal care Other malaise Other abnormalities of gait and mobility Unsteadiness on feet Muscle weakness (generalized) Other symbolic dysfunctions Dysphagia, oropharyngeal phase Essential (primary) hypertension Activated protein C resistance Unspecified severe protein-calorie malnutrition Acute respiratory failure with hypoxia Emphysema, unspecified Peripheral vascular disease, unspecified Enterocolitis due to Clostridium difficile, not specified as recurrent Acute kidney failure, unspecified Leakage of aortic (bifurcation) graft (replacement), subsequent encounter Abdominal aortic aneurysm, ruptured, unspecified Home Medications ?Medication ?Instructions ?Recorded ?Last Taken ?Type aspirin 81 mg tablet,delayed 81 mg PO DAILY 03/11/24 07/23/24 History release (Adult Aspirin Regimen) atorvastatin 20 mg tablet 20 mg PO QHS 03/11/24 07/22/24 History heparin (porcine) 5,000 unit/mL (1 5,000 unit subcut Q8H 03/11/24 07/23/24 History mL) injection cartridge metoprolol tartrate 25 mg tablet 25 mg PO BID 03/11/24 07/22/24 History ascorbic acid (vitamin C) 500 mg 500 mg PO DAILY 04/11/24 07/23/24 History capsule thiamine HCl (vitamin B1) 100 mg 100 mg PO BID 04/11/24 07/23/24 History tablet cyclobenzaprine 5 mg tablet 5 mg PO TID PRN MUSCLE SPASMS 06/05/24 07/10/24 History Lactobacillus rhamnosus GG 10 1 cap PO DAILY 07/18/24 07/23/24 History billion cell capsule (Culturelle) acetaminophen 325 mg tablet 650 mg PO Q4H PRN fever 07/18/24 Unknown History aluminum-magnesium hydroxide 200 30 ml PO Q4H PRN GI DISTRESS 07/18/24 Unknown History mg-200 mg/5 mL oral suspension amlodipine 5 mg tablet 5 mg PO QHS 07/18/24 07/22/24 History docusate sodium 100 mg tablet 100 mg PO BID PRN constipation 07/18/24 Unknown History dronabinol 2.5 mg capsule (Marinol) 2.5 mg PO BID 07/18/24 07/23/24 History famotidine 10 mg tablet 20 mg PO DAILY 07/18/24 07/23/24 History guaifenesin 100 mg/5 mL oral liquid 200 mg PO Q4H PRN cough 07/18/24 07/14/24 History levothyroxine 200 mcg tablet 200 mcg PO DAILY 07/18/24 07/23/24 History midodrine 10 mg tablet 10 mg PO DAILY PRN for SBP lower 07/18/24 Unknown History than 110 during dialysis tx mirtazapine 30 mg tablet 30 mg PO QHS 07/18/24 07/22/24 History ondansetron 4 mg disintegrating 4 mg PO DAILY PRN nausea and 07/18/24 Unknown History tablet vomiting oxycodone 5 mg tablet 5 mg PO Q6H PRN pain 07/18/24 07/22/24 History polyethylene glycol 3350 17 17 g PO QODAY 07/18/24 07/21/24 History gram/dose oral powder sennosides 8.6 mg-docusate sodium 1 tab-cap PO DAILY PRN constipation 07/18/24 Unknown History 50 mg tablet (Senna Plus) sertraline 25 mg tablet 25 mg PO DAILY 07/18/24 07/23/24 History vitamin B complex-vitamin C-folic 1 tab PO DAILY 07/18/24 07/23/24 History acid 0.8 mg tablet (Renal Vitamin) bisacodyl 10 mg rectal suppository 10 mg CA DAILY PRN constipation 07/31/24 Unknown History cholecalciferol (vitamin D3) 125 125 mcg PO DAILY 07/31/24 Unknown History mcg (5,000 unit) capsule glucagon HCl 1 mg solution for 1 mg IM Q20M PRN hypoglycemia 07/31/24 Unknown History injection (Glucagon (HCl) Emergency Kit) magnesium hydroxide 400 mg/5 mL 30 ml PO DAILY PRN stomach upset 07/31/24 Unknown History oral suspension (Dulcolax (magnesium hydroxide)) Allergy/AdvReac Type Severity Reaction Status Date / Time iodine Allergy Intermediate Nausea Verified 07/31/24 11:46 shellfish derived Allergy Intermediate Nausea Verified 07/31/24 11:46 Social History Smoking Status: Former smoker Tobacco: How many years used: 40 alcohol intake: former substance use type: does not use ROS ROS Narrative Negative except above Physical Exam Const alert and oriented x3 Constitutional Narrative: very malnourished, cachectic. BMI is 13.8. Frail and weak. General Appearance: cooperative HEENT normocephalic, head/scalp atraumatic and moist oral mucous membranes Eyes PERRL and EOMs intact bilaterally Neck no lymphadenopathy and supple Lymph Lymphatic: no lymphadenopathy noted Resp normal respiratory effort, normal air movement and clear to auscultation bilaterally Cardio regular rate, regular rhythm, S1 normal heart sound, S2 normal heart sound and no murmurs GI normal to inspection, nondistended, normoactive bowel sounds, soft to palpation, non-tender and non-distended Extremity normal capillary refill General Extremity: no tenderness to palpation of joints or extremities Skin General Skin Exam: no breakdown Neuro CN's II-XII intact bilaterally and no focal motor deficits Motor Exam: general weakness Psych thought process normal Mood & Affect: flat affect Medical Records Data Medical Nutrition Assessment Dietitian: Malnutrition Criteria Met Start: 08/01/24 12:11 Freq: Status: Active Protocol: Document 08/01/24 12:12 LO (Rec: 08/01/24 12:12 [id number]) Nutrition Malnutrition Evidence of Yes Malnutrition Exists Malnutrition (severe Chronic ): Evidenced By Suboptimal Energy Intake (Severe),Weight Loss (Severe) Intake Problem Increased Nutrient Needs (specify) Etiology protein related to increased demand for healing Signs/Symptoms as evidenced by left lower abdominal wound and coccyx pressure injury Status Active Problem Clinical Problem Chronic Disease or Condition Related Malnutrition Etiology severe related to suboptimal appetite and multile medical problems over the past 6 months including c. diff and AAA Signs/Symptoms as evidenced by 10.8kg (18.7%) unintentional weight loss in ~5 months and PO intakes meeting <75% of estimated nutrition needs for ~5 months; BMI 14 Status Active Problem Recommendation Dietitian Recommend advancing diet as tolerated to Regular when Recommendations/ medically able to optimize oral intakes. Changes Recommend 120mL ensure plus high protein 4x daily with medpass and Pramod BID with meals to provide supplemental energy and help promote wound healing. When medically able recommend via PEG tube, enteral nutrition of Jevity 1.5 at 50mL/hr x24 hours Lab / Micro Data 08/02/24 17:20 08/02/24 05:03 Labs: Laboratory Results - last 24 hr 08/02/24 05:03: WBC 11.7 H, RBC 2.75 L, Hgb 7.1 L, Hct 23.8 L, MCV 86.5, MCH 25.8 L, MCHC 29.8 L, RDW Std Deviation 55.0 H, RDW Coeff of Monika 17.5 H, Plt Count 284, MPV 9.6, Sodium 134, Potassium 5.3 H, Chloride 101, Carbon Dioxide 23.8, Anion Gap 9, BUN 46 H, Creatinine 1.37 H, Estim Creat Clear Calc 30.92 L, Est GFR (MDRD) Non-Af 44 L, BUN/Creatinine Ratio 33.3 H, Glucose 54 L, Calcium 8.9 08/02/24 17:20: Hgb 7.9 L, Hct 26.9 L Assessment & Plan Assessment/Plan (1) Acute upper gastrointestinal bleeding: PLAN: Plan Patient is a 64-year-old female who presented [facility] ED on 07/31/2024 with coffee-ground emesis. 1. Suspected upper GI bleed with coffee-ground emesis ? She had and episode of coffee-ground emesis at dialysis and then suction through PEG tube also showed coffee-ground material. N.p.o. at midnight with plan for. Treat with IV PPI twice daily for now. 2. History of factor V Leiden on subcutaneous heparin ? Has been on subcutaneous heparin every 8 hours. Will hold this for now in setting of upper GI bleed. 3. Adult failure to thrive with severe malnutrition and recent PEG tube placement ? Holding tube feeds for now given suspected GI bleed as noted above.
[2024-08-01] MEDS: Mirtazapine 30 MG Tablet PO (22:30)
[2024-08-01] MEDS: Atorvastatin Calcium 20 MG Tablet PO (22:31)
[2024-08-01] MEDS: amLODIPine 5 MG Tablet PO (22:31)
[2024-08-02] VITALS (14 sets, daily range): BP systolic 123–230; BP diastolic 71–80; PULSE 64–70; RESP 12–16; TEMP 36.1–36.6; O2SAT 90–100; BMI 13.6; BMI 13.7
[2024-08-02 05:22] LABS: Hematocrit 23.8 % (37-47); Hemoglobin 7.1 g/dL (12.0-15.0); Mean Corp Hgb Conc 29.8 g/dL (32-36); Mean Corpuscular Hgb 25.8 pg (27.0-32.0); Mean Corpuscular Volume 86.5 fL (81-99); Mean Platelet Vol. 9.6 fl (6.2-12.0); Platelet Count 284 K/mm3 (150-450); RBC Distribution Width CV 17.5 % (11.6-14.6); Red Blood Count 2.75 M/mm3 (4.2-5.4); White Blood Count 11.7 K/mm3 (4.4-11.0)
[2024-08-02 05:29] LABS: Scan Indicated on CBC? Y/N NO
[2024-08-02 06:33] LABS: Anion Gap 9 (5-15); BUN 46 mg/dL (4-19); BUN/Creat Ratio 33.3 RATIO (10-20); Calcium,Total 8.9 mg/dL (7.6-11.0); Carbon Dioxide 23.8 mmol/L (21.0-32.0); Chloride 101 mmol/L (98-108); Creatinine, Serum 1.37 mg/dL (0.70-1.20); EST Glomerular Filtration Rate 44 (>60); Estimated Creatinine Clearance 30.92 ml/min (50-250); Glucose 54 mg/dL (70-99); Potassium 5.3 mmol/L (3.3-5.1); Sodium Level 134 mmol/L (133-145)
--- NOTE | 2024-08-02 08:31 | WOUNDNOTE ---
Pt currently getting dialysis. will assess abdominal wound later today.
[2024-08-02] MEDS: 0.9% Normal Saline 1,000 ML IV.SOLN. 1000 ML OPERA.SITE (08:44)
[2024-08-02] MEDS: PureFlow B 2K Dialysis Soln 1 BAG 6 BAG PF (08:44)
[2024-08-02] MEDS: 0.9% Saline Lock 10 ML Syringe IV ×2 (08:45→22:10)
[2024-08-02] MEDS: Heparin 10,000 UNITS/10 ML Vial IV (08:54)
[2024-08-02] MEDS: Pantoprazole Sodium 40 MG in 0.9% Normal Saline (100mL MB+) 100 ML 330 MG IV ×2 (11:50→21:48)
--- NOTE | 2024-08-02 12:33 | CASEMGMT ---
Social Work [facility] not [facility] beds available. SW called pt sister/HCPOA Janette and informed. Janette states that [facility] is next facility of choice. DC academic affairs assistant updated and will send referral to [facility]. RICKY Jimenez
--- NOTE | 2024-08-02 13:01 | CASEMGMT ---
Addendum entered by Joellen Billy 08/05/24 08:27: [facility] declined. Joellen Billy DC Planning Asst. Original Note: Discharge Planning Referral sent to [facility]. Joellen Billy DC Planning Asst.
--- NOTE | 2024-08-02 13:18 | PCM.PN.REN ---
Subjective Subjective No new complaint Objective Data Objective Data Vital Signs: Vital Signs Temp Pulse Resp BP Pulse Ox O2 Del Method O2 Flow Rate 97.0 F L 65 14 131/74 H 94 Nasal Cannula 4 08/02/24 11:15 08/02/24 11:15 08/02/24 11:15 08/02/24 11:15 08/02/24 11:15 08/02/24 11:15 08/02/24 11:15 Oxygen Flow Rate (L/min) 4 Oxygen Delivery Method Nasal Cannula Weight: 46 kg Body Mass Index (BMI) 13.7 Intake & Output: Intake and Output for Last 24 Hours 07/31/24 08/01/24 08/02/24 23:59 23:59 23:59 Intake Total 220 / 340 700 / 1060 470 / 470 Output Total 690 / 840 830 / 830 Balance 220 / 340 10 -360 / -360 Medical Nutrition Assessment Dietitian: Malnutrition Criteria Met Start: 08/01/24 12:11 Freq: Status: Active Protocol: Document 08/01/24 12:12 LO (Rec: 08/01/24 12:12 LO [id number]) Nutrition Malnutrition Evidence of Yes Malnutrition Exists Malnutrition (severe Chronic ): Evidenced By Suboptimal Energy Intake (Severe),Weight Loss (Severe) Intake Problem Increased Nutrient Needs (specify) Etiology protein related to increased demand for healing Signs/Symptoms as evidenced by left lower abdominal wound and coccyx pressure injury Status Active Problem Clinical Problem Chronic Disease or Condition Related Malnutrition Etiology severe related to suboptimal appetite and multile medical problems over the past 6 months including c. diff and AAA Signs/Symptoms as evidenced by 10.8kg (18.7%) unintentional weight loss in ~5 months and PO intakes meeting <75% of estimated nutrition needs for ~5 months; BMI 14 Status Active Problem Recommendation Dietitian Recommend advancing diet as tolerated to Regular when Recommendations/ medically able to optimize oral intakes. Changes Recommend 120mL ensure plus high protein 4x daily with medpass and Pramod BID with meals to provide supplemental energy and help promote wound healing. When medically able recommend via PEG tube, enteral nutrition of Jevity 1.5 at 50mL/hr x24 hours Lab / Micro Data 08/02/24 05:03 08/02/24 05:03 Labs: Laboratory Results - last 24 hr 08/02/24 05:03: WBC 11.7 H, RBC 2.75 L, Hgb 7.1 L, Hct 23.8 L, MCV 86.5, MCH 25.8 L, MCHC 29.8 L, RDW Std Deviation 55.0 H, RDW Coeff of Monika 17.5 H, Plt Count 284, MPV 9.6, Sodium 134, Potassium 5.3 H, Chloride 101, Carbon Dioxide 23.8, Anion Gap 9, BUN 46 H, Creatinine 1.37 H, Estim Creat Clear Calc 30.92 L, Est GFR (MDRD) Non-Af 44 L, BUN/Creatinine Ratio 33.3 H, Glucose 54 L, Calcium 8.9 Physical Exam Narrative Alert awake oriented x 3 no obvious distress no pallor no icterus no JVD s1s2 no murmurs lungs clear abdomen soft no organomegaly no edema Assessment & Plan Assessment/Plan (1) End stage renal disease: PLAN: ESRD Hyperkalemia Dialysis as per schedule. Markedly cachectic. Goals of care discussion ongoing
--- NOTE | 2024-08-02 14:51 | PCM.PROGNOTE ---
Subjective Subjective Patient seen and examined. She was having dialysis at time of review. She had no active complaints. Review of systems otherwise negative. Hemoglobin is 7.1 today. Objective Data Objective Data Vital Signs: Vital Signs Temp Pulse Resp BP Pulse Ox O2 Del Method O2 Flow Rate 97.0 F L 65 14 131/74 H 94 Nasal Cannula 4 08/02/24 11:15 08/02/24 11:15 08/02/24 11:15 08/02/24 11:15 08/02/24 11:15 08/02/24 11:15 08/02/24 11:15 Oxygen Flow Rate (L/min) 4 Oxygen Delivery Method Nasal Cannula Weight: 101 lb 6.602 oz Body Mass Index (BMI) 13.7 Intake & Output: Intake and Output for Last 24 Hours 07/31/24 08/01/24 08/02/24 23:59 23:59 23:59 Intake Total 220 / 340 700 / 1060 470 / 470 Output Total 690 / 840 830 / 830 Balance 220 / 340 10 -360 / -360 Medical Nutrition Assessment Dietitian: Malnutrition Criteria Met Start: 08/01/24 12:11 Freq: Status: Active Protocol: Document 08/01/24 12:12 LO (Rec: 08/01/24 12:12 LO [id number]) Nutrition Malnutrition Evidence of Yes Malnutrition Exists Malnutrition (severe Chronic ): Evidenced By Suboptimal Energy Intake (Severe),Weight Loss (Severe) Intake Problem Increased Nutrient Needs (specify) Etiology protein related to increased demand for healing Signs/Symptoms as evidenced by left lower abdominal wound and coccyx pressure injury Status Active Problem Clinical Problem Chronic Disease or Condition Related Malnutrition Etiology severe related to suboptimal appetite and multile medical problems over the past 6 months including c. diff and AAA Signs/Symptoms as evidenced by 10.8kg (18.7%) unintentional weight loss in ~5 months and PO intakes meeting <75% of estimated nutrition needs for ~5 months; BMI 14 Status Active Problem Recommendation Dietitian Recommend advancing diet as tolerated to Regular when Recommendations/ medically able to optimize oral intakes. Changes Recommend 120mL ensure plus high protein 4x daily with medpass and Pramod BID with meals to provide supplemental energy and help promote wound healing. When medically able recommend via PEG tube, enteral nutrition of Jevity 1.5 at 50mL/hr x24 hours Lab / Micro Data 08/02/24 05:03 08/02/24 05:03 Labs: Laboratory Results - last 24 hr 08/02/24 05:03: WBC 11.7 H, RBC 2.75 L, Hgb 7.1 L, Hct 23.8 L, MCV 86.5, MCH 25.8 L, MCHC 29.8 L, RDW Std Deviation 55.0 H, RDW Coeff of Monika 17.5 H, Plt Count 284, MPV 9.6, Sodium 134, Potassium 5.3 H, Chloride 101, Carbon Dioxide 23.8, Anion Gap 9, BUN 46 H, Creatinine 1.37 H, Estim Creat Clear Calc 30.92 L, Est GFR (MDRD) Non-Af 44 L, BUN/Creatinine Ratio 33.3 H, Glucose 54 L, Calcium 8.9 Physical Exam Const alert and oriented x3 Constitutional Narrative: very malnourished, cachectic. BMI is 13.8. Frail and weak. General Appearance: cooperative HEENT normocephalic, head/scalp atraumatic and moist oral mucous membranes Eyes PERRL and EOMs intact bilaterally Neck no lymphadenopathy and supple Lymph Lymphatic: no lymphadenopathy noted Resp normal respiratory effort, normal air movement and clear to auscultation bilaterally Cardio regular rate, regular rhythm, S1 normal heart sound, S2 normal heart sound and no murmurs GI normal to inspection, nondistended, normoactive bowel sounds, soft to palpation, non-tender and non-distended Extremity normal capillary refill General Extremity: no tenderness to palpation of joints or extremities Skin General Skin Exam: no breakdown Neuro CN's II-XII intact bilaterally and no focal motor deficits Motor Exam: general weakness Psych thought process normal Mood & Affect: flat affect Assessment & Plan Assessment/Plan (1) Acute upper gastrointestinal bleeding: (2) Coffee ground emesis: PLAN: Plan #Acute on chronic anemia due to probable UGI bleed Patient was admitted with a complaint of coffee-ground emesis. A PEG tube was also suctioned which showed coffee-ground material. CT of the abdomen and pelvis done on admission concerning for esophagitis with gastritis. Gastroenterology consulted. On IV pantoprazole 40 mg twice daily. For EGD today. #History of factor V Leiden deficiency On subcu heparin Q8 hourly but is currently on hold due to concerns for GI bleed #Severe malnutrition with failure to thrive Recently had a PEG tube inserted and on tube feeds via PEG tube. Tube feed on hold now pending EGD #ESRD On hemodialysis. Nephrology on board. #Acute on chronic anemia Hemoglobin is 7.1 today. Was 7.7 on admission. Will repeat CBC and transfuse if hemoglobin is less than 7. #History of abdominal wound This occurred after she had surgery during a prolonged admission from December to January 2024 for endovascular leak from her abdominal aortic aneurysm. 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 She follows up with wound care and plastic surgeon outpatient basis. #GERD: On PPI #Benign essential hypertension: On amlodipine and metoprolol #Hypothyroidism: On Synthroid #Depression: On sertraline and mirtazapine DVT prophylaxis: SCDs. Heparin held due to concern for GI bleed. Code status: DNRCCA with intubation Charges/Coding Visit Charges Inpatient E&M: 24796 [facility] Hosp L3
[2024-08-02] MEDS: Acetaminophen 325 MG Tablet 650 MG PO (15:07)
[2024-08-02] MEDS: Dronabinol 2.5 MG Capsule PO (16:07)
[2024-08-02 17:50] LABS: Hematocrit 26.9 % (37-47); Hemoglobin 7.9 g/dL (12.0-15.0)
--- NOTE | 2024-08-02 20:31 | PN_ITS ---
Progress Note Patient was supposed to undergo an upper endoscopy today for upper GI bleed but could not undergo the test today. She had been started back on a diet. Physical Exam Const alert and oriented x3 Constitutional Narrative: very malnourished, cachectic. BMI is 13.8. Frail and weak. General Appearance: cooperative HEENT normocephalic, head/scalp atraumatic and moist oral mucous membranes Eyes PERRL and EOMs intact bilaterally Neck no lymphadenopathy and supple Lymph Lymphatic: no lymphadenopathy noted Resp normal respiratory effort, normal air movement and clear to auscultation bilaterally Cardio regular rate, regular rhythm, S1 normal heart sound, S2 normal heart sound and no murmurs GI normal to inspection, nondistended, normoactive bowel sounds, soft to palpation, non-tender and non-distended Extremity normal capillary refill General Extremity: no tenderness to palpation of joints or extremities Skin General Skin Exam: no breakdown Neuro CN's II-XII intact bilaterally and no focal motor deficits Motor Exam: general weakness Psych thought process normal Mood & Affect: flat affect Assessment & Plan Assessment/Plan (1) Acute upper gastrointestinal bleeding: PLAN: Plan Patient is a 64-year-old female who presented [facility] ED on 07/31/2024 with coffee-ground emesis. 1. Suspected upper GI bleed with coffee-ground emesis ? She had and episode of coffee-ground emesis at dialysis and then suction through PEG tube also showed coffee-ground material. N.p.o. at midnight with plan for EGD tomorrow morning. Treat with IV PPI twice daily for now. 2. History of factor V Leiden on subcutaneous heparin ? Has been on subcutaneous heparin every 8 hours. Will hold this for now in setting of upper GI bleed. 3. Adult failure to thrive with severe malnutrition and recent PEG tube placement ? Holding tube feeds for now given suspected GI bleed as noted above. Visit Charges Inpatient E&M: 37106 Subs Hosp L3
[2024-08-02] MEDS: Mirtazapine 30 MG Tablet PO (21:50)
[2024-08-02] MEDS: Thiamine Hydrochloride 100 MG Tablet PO (21:51)
[2024-08-02] MEDS: Atorvastatin Calcium 20 MG Tablet PO (21:51)
[2024-08-02] MEDS: amLODIPine 5 MG Tablet PO (21:52)
[2024-08-02] MEDS: Metoprolol Tartrate 25 MG Tablet PO (21:52)
[2024-08-02 22:18] LABS: Internal QC Validated? YES +Cl - CLEAR BKGD; Pregnancy, Urine Negative Negative
[2024-08-03] VITALS (13 sets, daily range): BP systolic 125–144; BP diastolic 62–81; PULSE 58–71; RESP 16–18; TEMP 36.3–36.8; O2SAT 93–100
--- NOTE | 2024-08-03 07:35 | PCM.PRE.AN2 ---
ASA Classification* ASA Classification ASA Classification: 3 and E Assessment & Plan Anesthesia* Anesthesia Assessment Anesthesia Assessment: Discussed sedation and/or anesthesia options, risks, benefits, and alternatives with patient/parents/legal guardian/POA. Questions invited. The patient/parents/legal guardian/POA seems to understand and agrees to proceed with anesthesia plan. Reviewed the physical assessment, medical history, allergy history and patient home medications list prior to surgery/procedure/anesthetic and documented any changes. Performed airway and anesthesia risk assessments. Anesthesia Type Anesthesia Type: MAC Anesthesia Focused Assessment* Temperature: 98.2 F Pulse Rate: 66 Blood Pressure: 128/68 Respiratory Rate: 16 Pulse Ox: 98 Oxygen Flow Rate (L/min): 3 Airway Assessment Mouth opens: >3 cm Mallampati Score: II Focused Labs Anesthesia Preop lab: CBC WBC 11.7 K/mm3 (4.4-11.0) H 08/02/24 05:03 08/02/24 RBC 2.75 M/mm3 (4.2-5.4) L 08/02/24 05:03 08/02/24 Hgb 7.9 g/dL (12.0-15.0) L 08/02/24 17:20 08/02/24 Hct 26.9 % (37-47) L 08/02/24 17:20 08/02/24 Plt Count 284 K/mm3 (150-450) 08/02/24 05:03 08/02/24 CHEMISTRY Potassium 5.3 mmol/L (3.3-5.1) H 08/02/24 05:03 08/02/24 Sodium 134 mmol/L (133-145) 08/02/24 05:03 08/02/24 Magnesium 1.9 mg/dL (1.5-2.2) 07/30/24 05:05 07/30/24 Phosphorus 3.3 mg/dL (2.7-4.5) 07/29/24 06:47 07/29/24 BUN 46 mg/dL (4-19) H 08/02/24 05:03 08/02/24 Creatinine 1.37 mg/dL (0.70-1.20) H 08/02/24 05:03 08/02/24 Glucose 54 mg/dL (70-99) L 08/02/24 05:03 08/02/24 TSH 0.578 uIU/mL (0.300-4.200) 07/30/24 05:05 07/30/24 COAG PT 15.3 SECONDS (11.7-14.9) H 07/31/24 11:55 07/31/24 Urine Test Negative Negative 08/02/24 20:29 08/02/24 Pre-Assessment Diagnosis/Proposed Procedure Planned Operative Procedure(s): EGD Anesthesia History Anesthesia History - mold sheet cleaner: Anesthesia History - mold sheet cleaner Hx Hospitalization Any Problems With Anesthesia Cholinesterase deficiency You/Your Family Experience fever (hyperthermia) with Relationship Recent Exposure to Contagious Disease Does patient have nerve stimulator Patient instructed to have device shut off --Does patient have Pacemaker or ICD? When Was Last Pacemaker Check QUESTION #4 FULL TEXT: You/Your Family Experience fever (hyperthermia) with Anesthesia Last Oral Intake Last Oral intake: Last Oral Intake NPO since Meds taken in AM with sips of water? Meds patient instructed to take am of surgery PONV PONV - mold sheet cleaner: PONV - mold sheet cleaner Female HX of Motion Sickness HX of N/V After Surgery Non-Smoker Duration of Surgery greater than 60 minutes Number of Risk Factors PONV Score Height & Weight Height & Weight: Anesthesia: Height & Weight Height 6 ft 08/01/24 11:49 Weight: 46 kg 08/02/24 07:45 Body Mass Index (BMI) 13.7 08/02/24 07:45 Respiratory Assessment Respiratory Assessment - mold sheet cleaner: Respiratory Tract Infection Hx - mold sheet cleaner Hx Respiratory Tract Infection STOP Sleep Apnea STOP Sleep Apnea - mold sheet cleaner: STOP Sleep Apnea - mold sheet cleaner Hx Hypertension Yes 07/31/24 17:15 Hx Sleep Apnea No 07/31/24 17:15 CPAP BIPAP Do you snore loudly (louder Yes 07/31/24 17:15 than talking or can be heard Do you often feel tired/ No 07/31/24 17:15 fatigued/ sleepy during daytime? Has anyone observed you stop No 07/31/24 17:15 breathing during sleep? STOP Results Positive 07/31/24 17:15 QUESTION #5 FULL TEXT : Do you snore loudly (louder than talking or can be heard through closed doors)? Tobacco Use History Tobacco Use History - mold sheet cleaner: Tobacco Use History - mold sheet cleaner Tobacco Use Smoking Status Former smoker 07/31/24 17:15 Hx Tobacco Use No 07/31/24 17:15 Years Smoking Packs Smoked per Day Smoking Cessation Date was Yes - quit smoking within 15 07/31/24 17:15 within the last 15 years years Hx Smoking Cessation Date Hx Smoking Cessation No 07/31/24 17:15 Counseling Hematologic Medial History Hematologic Hx - mold sheet cleaner: Hematologic Medical Hx - qm consultant Hx of Blood Transfusion Yes 07/31/24 17:15 Hx of Transfusion in last 3 No 07/31/24 17:15 Months Date of Last Transfusion (if within last 3 months) Ever experience any problems No 07/31/24 17:15 with transfusion(s)? Specify any problems Hx of Preganancy in last 3 N/A 07/31/24 17:15 Months Nurse Filling Out Transfusion [email or web address] 07/31/24 17:15 & Questions: Date: 07/31/24 07/31/24 17:15 Time: 17:52 07/31/24 17:15 Patient unable to answer at this time (ie. confused, unrespo /Reproduction History /Reproductive History - mold sheet cleaner: /Reproductive Hx- mold sheet cleaner Hx Now Gestational Age (in weeks): EDC: Hx Hx Para Hx Section SAB Active Medications Active Medications: Current Medications Generic Name Dose Route Start Last Admin Trade Name Freq PRN Reason Stop Dose Admin Acetaminophen 650 mg 07/31/24 17:15 08/02/24 15:07 Acetaminophen 325 Mg Tablet PO 650 mg Q6H PRN PRN Administration Pain 1-10 Or Fever>100.7 Amlodipine Besylate 5 mg 07/31/24 22:00 08/02/24 21:52 Amlodipine 5 Mg Tablet PO 5 mg QHS JORGE L Administration Protocol Ascorbic Acid 500 mg 08/01/24 10:00 08/02/24 10:41 Ascorbic Acid 500 Mg Tablet PO Not Given DAILY JORGE L Atorvastatin Calcium 20 mg 07/31/24 22:00 08/02/24 21:51 Atorvastatin Calcium 20 Mg Tablet PO 20 mg QHS JORGE L Administration Bisacodyl 10 mg 07/31/24 17:15 Bisacodyl 10 Mg Suppository RC DAILY PRN constipation Cholecalciferol 125 mcg 08/01/24 10:00 08/02/24 10:41 Cholecalciferol (Vit D3) 125 Mcg Capsule (5,000 Units) PO Not Given DAILY JORGE L Cyclobenzaprine HCl 5 mg 07/31/24 17:15 Cyclobenzaprine Hcl 5 Mg Tablet PO TID PRN MUSCLE SPASMS Docusate Sodium 100 mg 07/31/24 18:11 Docusate Sodium 100 Mg Capsule PO BID PRN constipation Dronabinol 2.5 mg 08/01/24 12:00 08/02/24 16:07 Dronabinol 2.5 Mg Capsule PO 2.5 mg 1200,1700 [facility] Administration Guaifenesin 10 ml 07/31/24 17:15 Guaifenesin 10 Ml Udc (200mg/10ml) PO Q4H PRN cough Pantoprazole Sodium 40 mg/ 110 mls @ 330 mls/hr 07/31/24 22:00 08/02/24 22:10 Sodium Chloride IV Infused Q12 JORGE L Infusion Sodium Chloride 100 mls @ 15 mls/hr 07/31/24 18:12 IV .Q6H40M PRN Saline Flush Sodium Chloride 100 mls @ 15 mls/hr 07/31/24 18:12 IV .Q6H40M PRN Additional IVPB Infusion Levothyroxine Sodium 200 mcg 08/01/24 06:00 08/03/24 05:27 Levothyroxine 100 Mcg Tablet PO Not Given DAILY@0600 [facility] Metoprolol Tartrate 25 mg 07/31/24 22:00 08/02/24 21:52 Metoprolol Tartrate 25 Mg Tablet PO 25 mg BID [facility] Administration Protocol Midodrine 10 mg 07/31/24 18:21 08/01/24 10:31 Midodrine Hcl 5 Mg Tablet PO 10 mg DAILY PRN Administration SBP <110 DURING HD Mirtazapine 30 mg 07/31/24 22:00 08/02/24 21:50 Mirtazapine 30 Mg Tablet PO 30 mg QHS [facility] Administration Multivit/Ca Carb/B Cmplx/FA/Prenat 1 cap 08/01/24 10:00 08/02/24 10:41 Folic Acid/Vitamin B Comp W-C 1 Capsule PO Not Given DAILY [facility] Ondansetron HCl 4 mg 07/31/24 17:15 Ondansetron 4 Mg/2 Ml Vial IV Q8H PRN PRN NAUSEA/VOMITING Senna/Docusate Sodium 1 tablet 07/31/24 17:15 Senna/Docusate Sodium 1 Tablet PO DAILY PRN constipation Sertraline HCl 25 mg 08/01/24 10:00 08/02/24 10:42 Sertraline 50 Mg Tablet PO Not Given DAILY JORGE L Sodium Chloride 10 - 40 ml 07/31/24 18:12 08/02/24 22:10 0.9% Saline Lock 10 Ml Syringe IV 10 ml UD PRN Administration SALINE FLUSH Thiamine HCl 100 mg 07/31/24 22:00 08/02/24 21:51 Thiamine Hydrochloride 100 Mg Tablet PO 100 mg BID JORGE L Administration PFSH Medical History Chylothorax determined by thoracentesis 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) Open abdominal wall wound Factor 5 Leiden mutation, heterozygous Failure to thrive senior living (current) use of anticoagulants Gross hematuria Retroperitoneal hematoma Constipation, unspecified Raynaud's syndrome without gangrene Hypo-osmolality and hyponatremia Hyperlipidemia, unspecified Hypothyroidism, unspecified Anemia, unspecified Need for assistance with personal care Other malaise Other abnormalities of gait and mobility Unsteadiness on feet Muscle weakness (generalized) Other symbolic dysfunctions Dysphagia, oropharyngeal phase Essential (primary) hypertension Activated protein C resistance Unspecified severe protein-calorie malnutrition Acute respiratory failure with hypoxia Emphysema, unspecified Peripheral vascular disease, unspecified Enterocolitis due to Clostridium difficile, not specified as recurrent Acute kidney failure, unspecified Leakage of aortic (bifurcation) graft (replacement), subsequent encounter Abdominal aortic aneurysm, ruptured, unspecified Home Medications ?Medication ?Instructions ?Recorded ?Last Taken ?Type aspirin 81 mg tablet,delayed 81 mg PO DAILY 03/11/24 07/23/24 History release (Adult Aspirin Regimen) atorvastatin 20 mg tablet 20 mg PO QHS 03/11/24 07/22/24 History heparin (porcine) 5,000 unit/mL (1 5,000 unit subcut Q8H 03/11/24 07/23/24 History mL) injection cartridge metoprolol tartrate 25 mg tablet 25 mg PO BID 03/11/24 07/22/24 History ascorbic acid (vitamin C) 500 mg 500 mg PO DAILY 04/11/24 07/23/24 History capsule thiamine HCl (vitamin B1) 100 mg 100 mg PO BID 04/11/24 07/23/24 History tablet cyclobenzaprine 5 mg tablet 5 mg PO TID PRN MUSCLE SPASMS 06/05/24 07/10/24 History Lactobacillus rhamnosus GG 10 1 cap PO DAILY 07/18/24 07/23/24 History billion cell capsule (Culturelle) acetaminophen 325 mg tablet 650 mg PO Q4H PRN fever 07/18/24 Unknown History aluminum-magnesium hydroxide 200 30 ml PO Q4H PRN GI DISTRESS 07/18/24 Unknown History mg-200 mg/5 mL oral suspension amlodipine 5 mg tablet 5 mg PO QHS 07/18/24 07/22/24 History docusate sodium 100 mg tablet 100 mg PO BID PRN constipation 07/18/24 Unknown History dronabinol 2.5 mg capsule (Marinol) 2.5 mg PO BID 07/18/24 07/23/24 History famotidine 10 mg tablet 20 mg PO DAILY 07/18/24 07/23/24 History guaifenesin 100 mg/5 mL oral liquid 200 mg PO Q4H PRN cough 07/18/24 07/14/24 History levothyroxine 200 mcg tablet 200 mcg PO DAILY 07/18/24 07/23/24 History midodrine 10 mg tablet 10 mg PO DAILY PRN for SBP lower 07/18/24 Unknown History than 110 during dialysis tx mirtazapine 30 mg tablet 30 mg PO QHS 07/18/24 07/22/24 History ondansetron 4 mg disintegrating 4 mg PO DAILY PRN nausea and 07/18/24 Unknown History tablet vomiting oxycodone 5 mg tablet 5 mg PO Q6H PRN pain 07/18/24 07/22/24 History polyethylene glycol 3350 17 17 g PO QODAY 07/18/24 07/21/24 History gram/dose oral powder sennosides 8.6 mg-docusate sodium 1 tab-cap PO DAILY PRN constipation 07/18/24 Unknown History 50 mg tablet (Senna Plus) sertraline 25 mg tablet 25 mg PO DAILY 07/18/24 07/23/24 History vitamin B complex-vitamin C-folic 1 tab PO DAILY 07/18/24 07/23/24 History acid 0.8 mg tablet (Renal Vitamin) bisacodyl 10 mg rectal suppository 10 mg HI DAILY PRN constipation 03/05/25 Unknown History cholecalciferol (vitamin D3) 125 125 mcg PO DAILY 07/31/24 Unknown History mcg (5,000 unit) capsule glucagon HCl 1 mg solution for 1 mg IM Q20M PRN hypoglycemia 07/31/24 Unknown History injection (Glucagon (HCl) Emergency Kit) magnesium hydroxide 400 mg/5 mL 30 ml PO DAILY PRN stomach upset 07/31/24 Unknown History oral suspension (Dulcolax (magnesium hydroxide)) Allergy/AdvReac Type Severity Reaction Status Date / Time iodine Allergy Intermediate Nausea Verified 07/31/24 11:46 shellfish derived Allergy Intermediate Nausea Verified 07/31/24 11:46 Social History Smoking Status: Former smoker Tobacco: How many years used: 40 alcohol intake: former substance use type: does not use Review of Systems (Anesthesia) ROS Narrative System reviewed and no additional complaints, except as documented.
--- NOTE | 2024-08-03 08:06 | PCM.PN.BLA ---
Progress Note Patient is down for EGD today. She has been n.p.o. and tube feedings have been off since last night. Physical Exam Const alert and oriented x3 Constitutional Narrative: very malnourished, cachectic. BMI is 13.8. Frail and weak. General Appearance: cooperative HEENT normocephalic, head/scalp atraumatic and moist oral mucous membranes Eyes PERRL and EOMs intact bilaterally Neck no lymphadenopathy and supple Lymph Lymphatic: no lymphadenopathy noted Resp normal respiratory effort, normal air movement and clear to auscultation bilaterally Cardio regular rate, regular rhythm, S1 normal heart sound, S2 normal heart sound and no murmurs GI normal to inspection, nondistended, normoactive bowel sounds, soft to palpation, non-tender and non-distended Extremity normal capillary refill General Extremity: no tenderness to palpation of joints or extremities Skin General Skin Exam: no breakdown Neuro CN's II-XII intact bilaterally and no focal motor deficits Motor Exam: general weakness Psych thought process normal Mood & Affect: flat affect Assessment & Plan Assessment/Plan (1) Acute upper gastrointestinal bleeding: PLAN: Plan Patient is a 64-year-old female who presented [facility] ED on 07/31/2024 with coffee-ground emesis. 1. Suspected upper GI bleed with coffee-ground emesis ? She had and episode of coffee-ground emesis at dialysis and then suction through PEG tube also showed coffee-ground material. N.p.o. at midnight with plan for EGD tomorrow morning. Treat with IV PPI twice daily for now. 2. History of factor V Leiden on subcutaneous heparin ? Has been on subcutaneous heparin every 8 hours. Will hold this for now in setting of upper GI bleed. 3. Adult failure to thrive with severe malnutrition and recent PEG tube placement ? Holding tube feeds for now given suspected GI bleed as noted above. Visit Charges Inpatient E&M: 05672 Subs Hosp L3
--- NOTE | 2024-08-03 08:58 | OP.CCLET_ITS ---
08/03/2024 Ethan Rodriguez MD [address] [id number] Re : Upper GI endoscopy procedure for Myrtle Mercedes Dear Dr. Rodriguez This procedure was performed on Saturday, August 03, 2024. My impressions and recommendations are as follows: Impressions : - Normal esophagus. - Dislodged gastrostomy tube present characterized by ulceration. Treated with argon plasma coagulation (APC). - A non-bleeding large defect due to buried peg tube bumper was found in the stomach. Clips were placed. 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 This likely occurred when the tube was pulledfor a feeding prior to healing in the stomach from the initial peg tube placement. - No gross lesions in the duodenal bulb. - No specimens collected. Recommendations : - [facility]. - NPO today. except for ice chips - Give Protonix (pantoprazole): initiate therapy with 80 mg IV bolus, then 8 mg/hr IV by continuous infusion. - Zosyn - Continue present medications. - Central line for TPN My findings are described in the full procedure note, which is enclosed. If I can be of further assistance, please feel free to contact me at . Sincerely, Nick Gallegos, 08/03/2024 8:57:14 AM This report has been signed electronically.
--- NOTE | 2024-08-03 08:58 | OP.EGD_ITS ---
Patient Name: Myrtle Mercedes Procedure Date: 08/03/2024 6:33 AM Date of : 1960 Age: 64 Procedure: Upper GI endoscopy Indications: Coffee-ground emesis Providers: Nick Gallegos DO Referring MD: Lavon Avery MD Medicines: Monitored Anesthesia Care Patient Profile: This is a 64 year old female. Refer to note in patient chart for documentation of history and physical. Patient has symptoms of acute epigastric abdominal pain, acute dyspepsia and acute vomiting. Complications: No immediate complications. Procedure: Pre-Anesthesia Assessment: - Prior to the procedure, a History and Physical was performed, and patient medications and allergies were reviewed. The patient is competent. The risks and benefits of the procedure and the sedation options and risks were discussed with the patient. All questions were answered and informed consent was obtained. Patient identification and proposed procedure were verified by the physician. Mental Status Examination: normal. Prophylactic Antibiotics: The patient does not require prophylactic antibiotics. Prior Anticoagulants: The patient has taken no anticoagulant or antiplatelet agents except for NSAID medication. ASA Grade Assessment: II - A patient with mild systemic disease. After reviewing the risks and benefits, the patient was deemed in satisfactory condition to undergo the procedure. The anesthesia plan was to use monitored anesthesia care (MAC). Immediately prior to administration of medications, the patient was re-assessed for adequacy to receive sedatives. The heart rate, respiratory rate, oxygen saturations, blood pressure, adequacy of pulmonary ventilation, and response to care were monitored throughout the procedure. The physical status of the patient was re-assessed after the procedure. After obtaining informed consent, the endoscope was passed under direct vision. Throughout the procedure, the patient's blood pressure, pulse, and oxygen saturations were monitored continuously. The Endoscope was introduced through the mouth, and advanced to the second part of duodenum. The upper GI endoscopy was accomplished without difficulty. The patient tolerated the procedure well. Scope In: 8:10:48 AM Scope Out: 8:43:24 AM Total Procedure Duration Time 0 hours 32 minutes 36 seconds Findings: The examined esophagus was normal. There was evidence of a dislodged gastrostomy tube present in the gastric fundus. This was characterized by ulceration. Coagulation for hemostasis using argon plasma at 0.3 liters/minute and 25 hernández was successful. Estimated blood loss was minimal. Buried Peg tube bumper was found in the cardia. This defect was large. To repair the defect, the tissue edges were approximated and four hemostatic clips were successfully placed. Closure of the defect was partially successful. 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 There was no bleeding during, or at the end, of the procedure. No gross lesions were noted in the duodenal bulb. Impression: - Normal esophagus. - Dislodged gastrostomy tube present characterized by ulceration. Treated with argon plasma coagulation (APC). - A non-bleeding large defect due to buried peg tube bumper was found in the stomach. Clips were placed. 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 This likely occurred when the tube was pulledfor a feeding prior to healing in the stomach from the initial peg tube placement. - No gross lesions in the duodenal bulb. - No specimens collected. Recommendation: - [facility]. - NPO today. except for ice chips - Give Protonix (pantoprazole): initiate therapy with 80 mg IV bolus, then 8 mg/hr IV by continuous infusion. - Zosyn - Continue present medications. - Central line for TPN Procedure Code(s): --- Professional --- 45198, Esophagogastroduodenoscopy, flexible, transoral; with control of bleeding, any method 46310, Unlisted procedure, stomach CPT copyright 2021 [employer]. All rights reserved. The codes documented in this report are preliminary and upon invoice coder review may be revised to meet current compliance requirements. Nick Gallegos DO 08/03/2024 8:57:14 AM This report has been signed electronically. Number of Addenda: 0 Note Initiated On: 08/03/2024 6:33 AM
--- NOTE | 2024-08-03 09:09 | PCM.POST.ANE ---
Anesthesia: Postop Eval I Current Vital Signs Temperature: 97.4 F Pulse Rate: 71 Blood Pressure: 136/70 Respiratory Rate: 16 Pulse Ox: 95 Oxygen Delivery Method: Nasal Cannula Oxygen Flow Rate (L/min): 3 Assessment Airway patent: Yes Spontaneous unlabored respirations: Yes Mental status: Awake nausea: No Vomiting: No Anesthesia Complication: No Fluid Hydration Crystalloid volume administer (ml): 10 Total IV fluid infused: 10 Progress Note Anesthesia document: Postop Eval 1 completed: Yes
--- NOTE | 2024-08-03 09:12 | PCM.POSTANE2 ---
Anesthesia Postop Eval I Sum Postop Eval Completion status Anesthesia document: Postop Eval 1 completed: Yes Anesthesia Postop Eval I Summary Anesthesia Postop Eval I Summary: Anesthesia Postop Eval I: Assessment Summary Airway patent Yes 08/03/24 09:10 Spontaneous unlabored Yes 08/03/24 09:10 respirations Mental status Awake 08/03/24 09:10 nausea No 08/03/24 09:10 Vomiting No 08/03/24 09:10 Anesthesia Postop Eval I: Fluid Summary Crystalloid volume administer 10 08/03/24 09:10 (ml) Colloids volume administered ( ml) Blood Product volume administered (ml) Total IV fluid infused 10 08/03/24 09:10 Anesthesia Postop Eval I: Summary Notes Anesthesia Complication No 08/03/24 09:10 Anesthesia Complication Comment: Post-operative progress note Anesthesia: Postop Eval II Evaluation Mental status: Awake Pain Level: 0 nausea: No Vomiting: No
[2024-08-03 09:54] LABS: Absolute Lymphocyte Count 0.88 X10^3/uL (0.83-4.51); Basophil# 0.05 X10^3/uL; Basophil% 0.5 % (0-1); Eosinophil# 0.14 X10^3/uL; Eosinophils% 1.3 % (0-5); Hematocrit 27.9 % (37-47); Lymphocyte # 0.88 X10^3/ul (0.83-4.51); Lymphocyte % 7.9 % (19-41); Mean Corp Hgb Conc 28.7 g/dL (32-36); Mean Corpuscular Hgb 25.2 pg (27.0-32.0); Mean Platelet Vol. 9.2 fl (6.2-12.0); Monocyte# 0.61 X10^3/uL; Monocyte% 5.5 % (0-10); NRBC Flagged by Analyzer 0 % (0-5); Neutrophil # 9.02 X10^3/uL (2.7-7.7); Neutrophil % 81.1 % (47-70); Platelet Count 265 K/mm3 (150-450); RBC Distribution Width CV 17.3 % (11.6-14.6); RBC Distribution Width SD 55.2 fl (35.1-43.9); Red Blood Count 3.17 M/mm3 (4.2-5.4); White Blood Count 11.1 K/mm3 (4.4-11.0)
[2024-08-03] MEDS: Sertraline 50 MG Tablet 25 MG PO (10:10)
[2024-08-03] MEDS: Ascorbic Acid 500 MG Tablet PO (10:10)
[2024-08-03] MEDS: Thiamine Hydrochloride 100 MG Tablet PO ×2 (10:10→21:42)
[2024-08-03] MEDS: Lactobacillis Acidophilus 1 CAP PO (10:10)
[2024-08-03] MEDS: Folic Acid/Vitamin B Comp W-C 1 Capsule 1 CAP PO (10:10)
[2024-08-03] MEDS: Metoprolol Tartrate 25 MG Tablet PO ×2 (10:10→21:42)
[2024-08-03] MEDS: Cholecalciferol (Vit D3) 125 MCG CAPSULE (5,000 UNITS) PO (10:11)
[2024-08-03] MEDS: Piperacil/Tazobactam 3.375 GM in 0.9% Normal Saline (50mL MB+) 50 ML IV ×2 (10:34→21:50)
[2024-08-03 11:12] LABS: Anion Gap 13 (5-15); BUN 39 mg/dL (4-19); BUN/Creat Ratio 31.7 RATIO (10-20); Calcium,Total 8.6 mg/dL (7.6-11.0); Carbon Dioxide 21.1 mmol/L (21.0-32.0); Chloride 102 mmol/L (98-108); Creatinine, Serum 1.24 mg/dL (0.70-1.20); EST Glomerular Filtration Rate 49 (>60); Estimated Creatinine Clearance 34.16 ml/min (50-250); Glucose 65 mg/dL (70-99); Potassium 4.8 mmol/L (3.3-5.1); Sodium Level 135 mmol/L (133-145)
--- NOTE | 2024-08-03 11:33 | NURSING ---
N.O. from Dr. Gallegos for IV Zosyn and IV Protonix following EGD this morning. Unable to obtain second IV on pt. to run both IV medications at the same time. Dr. Mead notified of this and ordered for infusion rate to be changed of IV Zosyn to allow for Protonix to be run sooner. Pharmacist to dose.
--- NOTE | 2024-08-03 11:53 | PN_ITS ---
Subjective Subjective Patient seen and examined. She had EGD today. She denied any cough, chest pain, shortness of breath, abdominal pain, nausea, vomiting or any other symptoms. Review of systems is otherwise negative. Objective Data Objective Data Vital Signs: Vital Signs Temp Pulse Resp BP Pulse Ox O2 Del Method O2 Flow Rate 97.7 F L 68 18 131/72 H 94 Nasal Cannula 3 08/03/24 10:05 08/03/24 10:10 08/03/24 10:05 08/03/24 10:05 08/03/24 10:05 08/03/24 10:05 08/03/24 10:05 Oxygen Flow Rate (L/min) 3 Oxygen Delivery Method Nasal Cannula Weight: 101 lb 6.602 oz Body Mass Index (BMI) 13.7 Intake & Output: Intake and Output for Last 24 Hours 08/01/24 08/02/24 08/03/24 23:59 23:59 23:59 Intake Total 700 / 1060 580 / 1040 460 / 460 Output Total 690 / 840 830 / 1130 300 / 300 Balance 10 / 220 -250 / -90 160 / 160 Medical Nutrition Assessment Dietitian: Malnutrition Criteria Met Start: 08/01/24 12:11 Freq: Status: Active Protocol: Document 08/01/24 12:12 LO (Rec: 08/01/24 12:12 LO [id number]) Nutrition Malnutrition Evidence of Yes Malnutrition Exists Malnutrition (severe Chronic ): Evidenced By Suboptimal Energy Intake (Severe),Weight Loss (Severe) Intake Problem Increased Nutrient Needs (specify) Etiology protein related to increased demand for healing Signs/Symptoms as evidenced by left lower abdominal wound and coccyx pressure injury Status Active Problem Clinical Problem Chronic Disease or Condition Related Malnutrition Etiology severe related to suboptimal appetite and multile medical problems over the past 6 months including c. diff and AAA Signs/Symptoms as evidenced by 10.8kg (18.7%) unintentional weight loss in ~5 months and PO intakes meeting <75% of estimated nutrition needs for ~5 months; BMI 14 Status Active Problem Recommendation Dietitian Recommend advancing diet as tolerated to Regular when Recommendations/ medically able to optimize oral intakes. Changes Recommend 120mL ensure plus high protein 4x daily with medpass and Pramod BID with meals to provide supplemental energy and help promote wound healing. When medically able recommend via PEG tube, enteral nutrition of Jevity 1.5 at 50mL/hr x24 hours Lab / Micro Data 08/03/24 09:47 08/03/24 09:47 Labs: Laboratory Results - last 24 hr 08/02/24 17:20: Hgb 7.9 L, Hct 26.9 L 08/02/24 20:29: Urine Test Negative 08/03/24 09:47: WBC 11.1 H, RBC 3.17 L, Hgb 8.0 L, Hct 27.9 L, MCV 88.0, MCH 25.2 L, MCHC 28.7 L, RDW Std Deviation 55.2 H, RDW Coeff of Monika 17.3 H, Plt Count 265, MPV 9.2, Immature Gran % (Auto) 3.700 H, Neut % (Auto) 81.1 H, Lymph % (Auto) 7.9 L, Reagan % (Auto) 5.5, Eos % (Auto) 1.3, Baso % (Auto) 0.5, Absolute Neuts (auto) 9.0 H, Absolute Lymphs (auto) 0.88, Nucleated RBC % 0, Sodium 135, Potassium 4.8, Chloride 102, Carbon Dioxide 21.1, Anion Gap 13, BUN 39 H, C reatinine 1.24 H, Estim Creat Clear Calc 34.16 L, Est GFR (MDRD) Non-Af 49 L, B UN/Creatinine Ratio 31.7 H, Glucose 65 L, Calcium 8.6 Physical Exam Const alert and oriented x3 Constitutional Narrative: very malnourished, cachectic. BMI is 13.8. Frail and weak. General Appearance: cooperative HEENT normocephalic, head/scalp atraumatic, hearing grossly normal bilaterally, nasal mucous membranes and turbinates normal and moist oral mucous membranes Eyes PERRL, EOMs intact bilaterally and conjunctivae normal Neck full ROM, no lymphadenopathy and supple Lymph Lymphatic: no lymphadenopathy noted Chest inspection of chest normal Resp normal respiratory effort, normal air movement, no use of accessory muscles and clear to auscultation bilaterally Cardio regular rate, regular rhythm, S1 normal heart sound, S2 normal heart sound, no murmurs and peripheral pulses 2+ throughout GI normal to inspection, nondistended, normoactive bowel sounds, soft to palpation, non-tender and non-distended GI Narrative: Mild tenderness to palpation in epigastric region. PEG tube site appears clean and dry. Abdomen otherwise soft and nondistended. Stable. Back/Spine normal ROM Extremity normal to inspection, normal capillary refill, no clubbing, cyanosis or edema and no pedal edema General Extremity: no tenderness to palpation of joints or extremities Skin no rashes or lesions noted General Skin Exam: no breakdown Neuro CN's II-XII intact bilaterally, moves all extremities and no focal motor deficits Speech: speech normal Motor Exam: strength 5/5 throughout and general weakness Psych mental status grossly normal and thought process normal Psych Narrative: Flat affect. Mood & Affect: flat affect Assessment & Plan Assessment/Plan (1) Acute upper gastrointestinal bleeding: (2) Coffee ground emesis: PLAN: Plan #Acute on chronic anemia due to probable UGI bleed * Patient was admitted with a complaint of coffee-ground emesis. A PEG tube was also suctioned which showed coffee-ground material. * CT of the abdomen and pelvis done on admission concerning for esophagitis with gastritis. * GI on board. She had EGD today which showed normal esophagus and dislodged gastrostomy tube present characterized by ulceration which was treated with argon plasma coagulation and a nonbleeding large defect due to buried PEG tube bumper found in the stomach. Clips were placed. No gross lesions in the duodenal bulb. * And IV pantoprazole. Resume tube feeds. * #History of factor V Leiden deficiency * On subcu heparin Q8 hourly but is currently on hold due to concerns for GI bleed. Resume heparin #Severe malnutrition with failure to thrive * Recently had a PEG tube inserted and on tube feeds via PEG tube. * Resume tube feeds. #ESRD * On hemodialysis. Nephrology on board. * #Acute on chronic anemia * Hemoglobin is 8 today. Was 7.7 on admission. * #History of abdominal wound * This occurred after she had surgery during a prolonged admission from December to January 2024 for endovascular leak from her abdominal aortic aneurysm. 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 She follows up with wound care and plastic surgeon outpatient basis. * #GERD: On PPI #Benign essential hypertension: On amlodipine and metoprolol #Hypothyroidism: On Synthroid #Depression: On sertraline and mirtazapine DVT prophylaxis: SCDs. Heparin held due to concern for GI bleed. Code status: DNRCCA with intubation Charges/Coding Visit Charges Inpatient E&M: 70962 Subs Hosp L2
[2024-08-03] MEDS: Dronabinol 2.5 MG Capsule PO ×2 (12:05→17:28)
--- NOTE | 2024-08-03 12:06 | CASEMGMT ---
Patient's Hi asked to talk with YVONNE and nurse. SW went back to patient's room and RN was in the room. Hi was surprised patient had a peg tube. He thought [facility] put it in during this visit. YVONNE introduced self and role at [facility]. Hi said no one has told him anything. YVONNE explained patient's sister Janette is patient's Healthcare POA. Hi said those are fraudulent documents. He asked to see the documents. YVONNE went back to YVONNE's computer to print documents. YVONNE then called patient's sister Janette. Janette confirmed there are issues with patient's Hi. Janette said patient was in the hospital last year and Hi showed up and told patient she is dying. Hi then disappeared. Janette then completed Healthcare Power of Analytical Engineer papers. Hi has been in and out since then. He has not seen patient in at least a month. Janette said she has sent him texts when patient goes into the hospital and he never responds. Janette said to, watch him. YVONNE also told Janette that [facility] is unable to take patient so we will need additional choices. YVONNE went back to patient's room and provided Hi with the Healthcare Power of Analytical Engineer papers. Hi tried to say they are not legit. YVONNE explained they are as a notary witnessed patient sign the document. Hi said the documents are not recorded. YVONNE asked what he means by recorded. Hi said the papers are supposed to be recorded with the [facility] Recorder's office. YVONNE explained that is not accurate. YVONNE explained that the hospital should have a copy, whatever facility patient is at should have a copy. Essentially it is up to the patient and/or her sister to give the papers to whom they would like to have a copy. YVONNE explained to patient that SW has been working with her sister to find a new facility that is closer to her. YVONNE told patient that the two facilities her sister chose are unable to take patient. Hi said, What about [facility]. YVONNE told both patient and Hi that YVONNE will talk with Janette regarding additional choices. YVONNE did explain to patient she will be at [facility] through the weekend as we do not have a new facility yet. Nori YOUSIF
[2024-08-03] MEDS: Heparin Injection (Vial) 5,000 UNIT/ML VIAL 5000 UNIT SC ×2 (12:53→21:51)
[2024-08-03] MEDS: Pantoprazole Sodium 80 MG in 0.9% Normal Saline (50mL Bag) 15 ML 420 MG IV BOLUS (12:53)
[2024-08-03] MEDS: Pantoprazole Sodium 80 MG in 0.9% Normal Saline (100mL Bag) 80 ML 10 MG CONT INF ×2 (12:57→22:54)
[2024-08-03] MEDS: Acetaminophen 325 MG Tablet 650 MG PO (17:37)
--- NOTE | 2024-08-03 17:46 | NURSING ---
Peg tube in place, per Dr. Gallegos no medication, fluids, or supplemental nutrition through peg for 48hr.
[2024-08-03] MEDS: amLODIPine 5 MG Tablet PO (21:42)
[2024-08-03] MEDS: Atorvastatin Calcium 20 MG Tablet PO (21:42)
[2024-08-03] MEDS: Mirtazapine 30 MG Tablet PO (21:43)
[2024-08-03] MEDS: 0.9% Saline Lock 10 ML Syringe IV ×2 (21:50→22:54)
[2024-08-03] MEDS: HYDROmorphone 0.5 MG/0.5 ML SYRINGE IV (22:54)
[2024-08-04] VITALS (10 sets, daily range): BP systolic 134–152; BP diastolic 64–83; PULSE 48–65; RESP 11–18; TEMP 29.9–36; O2SAT 94–100
--- NOTE | 2024-08-04 05:09 | PCM.HOSP.N ---
Hospitalist Note Patient with episode of hypoglycemia, noted to be 14, hypoglycemic protocol initiated.
[2024-08-04] MEDS: 0.9% Saline Lock 10 ML Syringe IV ×2 (05:10→05:38)
[2024-08-04] MEDS: Dextrose 10%-Water 250 ML 999 ML IV (05:10)
--- NOTE | 2024-08-04 05:30 | NURSING ---
Patient is very cold to the touch and nursing is having a hard time obtaining temperature and pulse Ox. Dr. Buckner in the room and made aware. Blood sugar is not recording via glucometer. Phlebotomy in room attempting to draw labs on patient. and respiratory assisting with obtaining pulse Ox. Dr. buckner is aware of all the above stated.
[2024-08-04] MEDS: Piperacil/Tazobactam 3.375 GM in 0.9% Normal Saline (50mL MB+) 50 ML IV ×3 (05:36→23:21)
[2024-08-04 05:49] LABS: Bedside Glucose 16 mg/dL (74-106)
[2024-08-04 05:49] LABS: Bedside Glucose < 10 mg/dL (74-106)
[2024-08-04 06:07] LABS: Bedside Glucose 14 mg/dL (74-106)
[2024-08-04 06:07] LABS: Bedside Glucose < 10 mg/dL (74-106)
[2024-08-04 06:27] LABS: Hematocrit 22.9 % (37-47); Hemoglobin 6.8 g/dL (12.0-15.0); Mean Corp Hgb Conc 29.7 g/dL (32-36); Mean Corpuscular Hgb 25.7 pg (27.0-32.0); Mean Corpuscular Volume 86.4 fL (81-99); Mean Platelet Vol. 8.7 fl (6.2-12.0); POSITIVE COUNT YES; POSITIVE MORPHOLOGY YES; Platelet Count 238 K/mm3 (150-450); RBC Distribution Width CV 17.2 % (11.6-14.6); RBC Distribution Width SD 53.4 fl (35.1-43.9); Red Blood Count 2.65 M/mm3 (4.2-5.4); White Blood Count 9.6 K/mm3 (4.4-11.0)
[2024-08-04 06:43] LABS: Differential Indicated MANUAL DIFF
[2024-08-04 06:45] LABS: ALB/GLOB Ratio 0.7 RATIO (0.9-2.4); AST(SGOT) 25 U/L (<=31); Alanine Aminotransfer ALT/SGPT 7 U/L (<=34); Albumin, Serum 2.1 g/dL (3.4-4.8); Alkaline Phosphatase 56 U/L (35-104); Anion Gap 9 (5-15); BUN 55 mg/dL (4-19); BUN/Creat Ratio 39.2 RATIO (10-20); Carbon Dioxide 22.9 mmol/L (21.0-32.0); Chloride 101 mmol/L (98-108); Creatinine, Serum 1.41 mg/dL (0.70-1.20); EST Glomerular Filtration Rate 42 (>60); Estimated Creatinine Clearance 30.04 ml/min (50-250); Globulin 3.1 g/dL (2.2-4.2); Glucose 153 mg/dL (70-99); Potassium 4.7 mmol/L (3.3-5.1); Protein, Total 5.2 g/dL (5.9-8.4); Sodium Level 134 mmol/L (133-145); Total Bilirubin 0.23 mg/dL (0.00-1.30)
[2024-08-04 07:11] LABS: Troponin T High Sensitivity 152 ng/L (<=14)
[2024-08-04 07:48] LABS: Eosinophil 1 % (0-5); Hypochromasia 1+; Lymphocyte 13 % (19-41); Metamyelocyte 2 % (0-1); Monocyte 2 % (0-10); Neutrophil-Band 1 % (0-5); Neutrophil-Segmented 81 % (47-70); Platelet Estimate ADEQUATE (ADEQ); Red Cell Morphology N CYTIC NORMAL (NORM C&C); Total Cells Counted 100 (MANUAL DIFF)
[2024-08-04 07:49] LABS: Absolute Lymphocyte Count 1.24 X10^3/uL (0.83-4.51); Absolute Neutrophil Count 7.9 X10^3/uL (2.0-7.7); Pathologist Review May foll
[2024-08-04 11:21] LABS: Troponin T High Sens 2 HR 146 ng/L (<=14)
[2024-08-04 12:12] LABS: Bedside Glucose 75 mg/dL (74-106)
[2024-08-04] MEDS: Senna/Docusate Sodium 1 Tablet PO (12:29)
[2024-08-04] MEDS: Sertraline 50 MG Tablet 25 MG PO (12:30)
[2024-08-04] MEDS: Thiamine Hydrochloride 100 MG Tablet PO ×2 (12:30→23:30)
[2024-08-04] MEDS: Cholecalciferol (Vit D3) 125 MCG CAPSULE (5,000 UNITS) PO (12:30)
[2024-08-04] MEDS: Folic Acid/Vitamin B Comp W-C 1 Capsule 1 CAP PO (12:30)
[2024-08-04] MEDS: Ondansetron 4 MG/2 ML Vial IV (12:39)
[2024-08-04] MEDS: Dextrose 5%/0.9% NaCl 1,000 ML 100 ML IV ×2 (12:47→23:21)
--- NOTE | 2024-08-04 13:47 | PN_ITS ---
Subjective Subjective Patient seen and examined. She remains very weak and lethargic. She had no active complaints. Per her nurse that has been some green discharge noted from the PEG tube site. Hemoglobin is also dropped to 6.8 today. Review of symptoms otherwise negative. Patient does not really seem to be improving. Objective Data Objective Data Vital Signs: Vital Signs Temp Pulse Resp BP Pulse Ox O2 Del Method O2 Flow Rate 96.1 F L 50 L 12 146/78 H 94 Nasal Cannula 5 08/04/24 11:52 08/04/24 08:08 08/04/24 08:08 08/04/24 08:08 08/04/24 08:20 08/04/24 10:00 08/04/24 10:00 Oxygen Flow Rate (L/min) 5 Oxygen Delivery Method Nasal Cannula Weight: 101 lb 6.602 oz Body Mass Index (BMI) 13.7 Intake & Output: Intake and Output for Last 24 Hours 08/02/24 08/03/24 08/05/24 23:59 23:59 00:59 Intake Total 580 / 1040 734.17 / 734.17 477.33 / 477.33 Output Total 830 / 1130 300 / 300 Balance -250 / -90 434.17 / 434.17 477.33 / 477.33 Medical Nutrition Assessment Dietitian: Malnutrition Criteria Met Start: 08/01/24 12:11 Freq: Status: Active Protocol: Document 08/01/24 12:12 LO (Rec: 08/01/24 12:12 LO [id number]) Nutrition Malnutrition Evidence of Yes Malnutrition Exists Malnutrition (severe Chronic ): Evidenced By Suboptimal Energy Intake (Severe),Weight Loss (Severe) Intake Problem Increased Nutrient Needs (specify) Etiology protein related to increased demand for healing Signs/Symptoms as evidenced by left lower abdominal wound and coccyx pressure injury Status Active Problem Clinical Problem Chronic Disease or Condition Related Malnutrition Etiology severe related to suboptimal appetite and multile medical problems over the past 6 months including c. diff and AAA Signs/Symptoms as evidenced by 10.8kg (18.7%) unintentional weight loss in ~5 months and PO intakes meeting <75% of estimated nutrition needs for ~5 months; BMI 14 Status Active Problem Recommendation Dietitian Recommend advancing diet as tolerated to Regular when Recommendations/ medically able to optimize oral intakes. Changes Recommend 120mL ensure plus high protein 4x daily with medpass and Pramod BID with meals to provide supplemental energy and help promote wound healing. When medically able recommend via PEG tube, enteral nutrition of Jevity 1.5 at 50mL/hr x24 hours Lab / Micro Data 08/04/24 06:15 08/04/24 06:15 Labs: Laboratory Results - last 24 hr 08/04/24 04:56: POC Glucose 14 L* 08/04/24 05:01: POC Glucose 16 L* 08/04/24 05:26: POC Glucose < 10 L* 08/04/24 05:48: POC Glucose < 10 L* 08/04/24 06:15: WBC 9.6, RBC 2.65 L, Hgb 6.8 L, Hct 22.9 L, MCV 86.4, MCH 25.7 L , MCHC 29.7 L, RDW Std Deviation 53.4 H, RDW Coeff of Monika 17.2 H, Plt Count 238, MPV 8.7, Neut % (Auto) Not Reportable, Absolute Neuts (auto) 7.9 H, Absolute Lymphs (auto) 1.24, Total Counted 100, Neutrophils % (Manual) 81 H, Band Neutrophils % 1, Lymphocytes % (Manual) 13 L, Monocytes % (Manual) 2, Eosinophils % (Manual) 1, Metamyelocytes % 2 H, Diff Path Review May , Platelet Estimate ADEQUATE, RBC Morphology N CYTIC, Hypochromasia 1+, Sodium 134, Potassium 4.7, Chloride 101, Carbon Dioxide 22.9, Anion Gap 9, BUN 55 H, C reatinine 1.41 H, Estim Creat Clear Calc 30.04 L, Est GFR (MDRD) Non-Af 42 L, B UN/Creatinine Ratio 39.2 H, Glucose 153 H, Calcium 8.0, Total Bilirubin 0.23, AST 25, ALT 7, Alkaline Phosphatase 56, Troponin T High Sens 152 H*, Total Protein 5.2 L, Albumin 2.1 L, Globulin 3.1, Albumin/Globulin Ratio 0.7 L 08/04/24 10:30: Blood Type O POSITIVE, Antibody Screen POSITIVE, Antibody Identification ANTI-C 08/04/24 10:30: Antibody Identification ANTI-Fya, Crossmatch See Detail 08/04/24 10:35: Troponin T Hi Sens 2 Hr 146 H* 08/04/24 11:55: POC Glucose 75 Physical Exam Const alert Constitutional Narrative: very malnourished, cachectic. BMI is 13.8. Frail and weak. General Appearance: cooperative HEENT normocephalic, head/scalp atraumatic, hearing grossly normal bilaterally, nasal mucous membranes and turbinates normal and moist oral mucous membranes Eyes PERRL, EOMs intact bilaterally and conjunctivae normal Neck full ROM, no lymphadenopathy and supple Lymph Lymphatic: no lymphadenopathy noted Chest inspection of chest normal Resp normal respiratory effort, normal air movement, no use of accessory muscles and clear to auscultation bilaterally Cardio regular rate, regular rhythm, S1 normal heart sound, S2 normal heart sound, no murmurs and peripheral pulses 2+ throughout GI GI Narrative: Mild tenderness to palpation in epigastric region. Greenish discharge at site of PEG tube insertion. Intact dressing over site. Abdomen otherwise soft and nondistended. Stable. Back/Spine normal ROM Extremity normal to inspection, normal capillary refill, no clubbing, cyanosis or edema and no pedal edema General Extremity: no tenderness to palpation of joints or extremities Skin no rashes or lesions noted Skin Narrative: looks very pale General Skin Exam: no breakdown Neuro CN's II-XII intact bilaterally, moves all extremities and no focal motor deficits Speech: speech normal Motor Exam: strength 5/5 throughout and general weakness Psych mental status grossly normal and thought process normal Psych Narrative: Flat affect. Mood & Affect: anxious and flat affect Assessment & Plan Assessment/Plan (1) Acute upper gastrointestinal bleeding: (2) Coffee ground emesis: PLAN: Plan #Acute on chronic anemia due to probable UGI bleed * Patient was admitted with a complaint of coffee-ground emesis. A PEG tube was also suctioned which showed coffee-ground material. * CT of the abdomen and pelvis done on admission concerning for esophagitis with gastritis. * GI on board. She had EGD today which showed normal esophagus and dislodged gastrostomy tube present characterized by ulceration which was treated with argon plasma coagulation and a nonbleeding large defect due to buried PEG tube bumper found in the stomach. Clips were placed. No gross lesions in the duodenal bulb. * Hb today is 6.8. Gastroenterology on board. * And IV pantoprazole. * GI wanted her to have tube feeds yesterday but she cannot have PICC line placed on account of the ESRD on dialysis via a dialysis catheter. They need to preserve her vessels for future AV fistula if needed. * transfuse with 2 units of PRBCs * #History of factor V Leiden deficiency * On subcu heparin Q8 hourly but is currently on hold due to concerns for GI bleed. * Resume heparin/ Hold as Hb has dropped to 6.8 today #Severe malnutrition with failure to thrive * Recently had a PEG tube inserted and on tube feeds via PEG tube. * Resume tube feeds. #ESRD * On hemodialysis. Nephrology on board. * #Acute on chronic anemia * Hemoglobin is 6.8 today. Was 7.7 on admission. * transfuse with 1 units of PRBCs * #History of abdominal wound * This occurred after she had surgery during a prolonged admission from December to January 2024 for endovascular leak from her abdominal aortic aneurysm. 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 She follows up with wound care and plastic surgeon outpatient basis. * having greenish discharge from wound site today. on IV zosyn. Will get wound cultures * #GERD: On PPI #Benign essential hypertension: On amlodipine and metoprolol #Hypothyroidism: On Synthroid #Depression: On sertraline and mirtazapine DVT prophylaxis: SCDs. Heparin held due to concern for GI bleed. Code status: DNRCCA with intubation 16:46 I called patient's sister Myrtle Mercedes ([phone]) who connected her sister Tyra Mercedes on the phone. I updated her sisters on the patient's poor prognosis and the need for TPN and GI considering a jejunostomy tube tomorrow. With regards to the code status, I clarified that her code status was DNRCCA with intubation. They now informed me that patient had stated that she wanted to live, and only did not want her ribs or chest wall broken. I clarified with them that we could not guarantee that she would not have rib fractures with chest compression. Family said they understood but wanted her to have CPR but they did not want her to have chest compression. They therefore confirmed her code status as DNRCCA no intubation. Total time spent on discussion: 20 mins. Charges/Coding Visit Charges Inpatient E&M: 92666 Subs Hosp L3 Procedures Hospitalists Procedures: 41507 Advncd Care Plan 30 Min
[2024-08-04] MEDS: Pantoprazole Sodium 80 MG in 0.9% Normal Saline (100mL Bag) 80 ML 10 MG CONT INF (14:06)
[2024-08-04] MEDS: Bisacodyl 10 MG Suppository RC (18:14)
[2024-08-04 18:41] LABS: Bedside Glucose 76 mg/dL (74-106)
[2024-08-04 19:01] LABS: Hematocrit 27.1 % (37-47); Hemoglobin 8.6 g/dL (12.0-15.0)
[2024-08-04] MEDS: Metoprolol Tartrate 25 MG Tablet PO (23:28)
[2024-08-04] MEDS: Atorvastatin Calcium 20 MG Tablet PO (23:28)
[2024-08-04] MEDS: amLODIPine 5 MG Tablet PO (23:29)
[2024-08-04] MEDS: Mirtazapine 30 MG Tablet PO (23:31)
[2024-08-05] VITALS (15 sets, daily range): BP systolic 118–258; BP diastolic 75–92; PULSE 61–77; RESP 16–19; TEMP 34.4–36.8; O2SAT 98–100; BMI 13.7; BMI 13.2
[2024-08-05] MEDS: Pantoprazole Sodium 80 MG in 0.9% Normal Saline (100mL Bag) 80 ML 10 MG CONT INF ×3 (00:09→20:43)
[2024-08-05 00:52] LABS: Bedside Glucose 95 mg/dL (74-106)
--- NOTE | 2024-08-05 01:03 | PCM.HOSP.N ---
Hospitalist Note Patient with persistent hypoglycemia. Will given D10 bolus per protocol and then will transition from D51/2NS to D101/2 NS.
[2024-08-05] MEDS: Dextrose 10%-Water 250 ML 999 ML IV ×2 (01:13→17:13)
[2024-08-05] MEDS: Sodium Chloride 19.25 MEQ in Dextrose 10%-Water 250 ML 40 MEQ IV ×2 (01:30→09:15)
[2024-08-05 02:00] LABS: Bedside Glucose 96 mg/dL (74-106)
[2024-08-05 02:00] LABS: Bedside Glucose 66 mg/dL (74-106)
[2024-08-05] MEDS: Piperacil/Tazobactam 3.375 GM in 0.9% Normal Saline (50mL MB+) 50 ML IV ×3 (06:22→23:12)
[2024-08-05 06:54] LABS: Bedside Glucose 80 mg/dL (74-106)
[2024-08-05 06:58] LABS: Absolute Lymphocyte Count 1.25 X10^3/uL (0.83-4.51); Absolute Neutrophil Count 12.9 X10^3/uL (2.0-7.7); Basophil# 0.04 X10^3/uL; Basophil% 0.3 % (0-1); Eosinophil# 0.04 X10^3/uL; Eosinophils% 0.3 % (0-5); Hemoglobin 8.6 g/dL (12.0-15.0); Lymphocyte # 1.25 X10^3/ul (0.83-4.51); Lymphocyte % 8.2 % (19-41); Mean Corp Hgb Conc 31.9 g/dL (32-36); Mean Corpuscular Hgb 27.3 pg (27.0-32.0); Mean Corpuscular Volume 85.7 fL (81-99); Mean Platelet Vol. 9.2 fl (6.2-12.0); Monocyte# 0.52 X10^3/uL; Monocyte% 3.4 % (0-10); NRBC Flagged by Analyzer 0 % (0-5); Neutrophil # 12.86 X10^3/uL (2.7-7.7); Neutrophil % 83.9 % (47-70); Platelet Count 234 K/mm3 (150-450); RBC Distribution Width SD 52.5 fl (35.1-43.9); Red Blood Count 3.15 M/mm3 (4.2-5.4); White Blood Count 15.3 K/mm3 (4.4-11.0)
[2024-08-05] MEDS: PureFlow B 2K Dialysis Soln 1 BAG 6 BAG PF (08:02)
[2024-08-05] MEDS: 0.9% Normal Saline 1,000 ML IV.SOLN. 1000 ML OPERA.SITE (08:02)
[2024-08-05] MEDS: 0.9% Saline Lock 10 ML Syringe IV ×2 (08:03→10:52)
[2024-08-05 08:20] LABS: Anion Gap 12 (5-15); BUN 55 mg/dL (4-19); BUN/Creat Ratio 32.7 RATIO (10-20); Calcium,Total 7.9 mg/dL (7.6-11.0); Carbon Dioxide 20.3 mmol/L (21.0-32.0); Chloride 102 mmol/L (98-108); Creatinine, Serum 1.69 mg/dL (0.70-1.20); EST Glomerular Filtration Rate 34 (>60); Estimated Creatinine Clearance 25.06 ml/min (50-250); Glucose 81 mg/dL (70-99); Sodium Level 135 mmol/L (133-145)
--- NOTE | 2024-08-05 09:07 | PN.HOSP_ITS ---
Reason for Visit Reason for Visit: Diagnoses Hematemesis (07/31/24) Gastrointestinal hemorrhage, unspecified (07/31/24) End stage renal disease (07/31/24) Subjective Subjective Feels hot with the Yumiko Hugger on. Objective Data Objective Data Vital Signs: Vital Signs Temp Pulse Resp BP Pulse Ox O2 Del Method O2 Flow Rate 36.8 C 62 18 153/80 H 100 Nasal Cannula 5 08/05/24 07:20 08/05/24 08:50 08/05/24 08:50 08/05/24 08:50 08/05/24 07:20 08/05/24 08:50 08/05/24 08:50 Oxygen Flow Rate (L/min) 5 Oxygen Delivery Method Nasal Cannula Weight: 46 kg Body Mass Index (BMI) 13.7 Intake & Output: Intake and Output for Last 24 Hours 08/03/24 08/05/24 08/05/24 23:59 00:59 23:59 Intake Total 734.17 / 734.17 1770.00 / 1770.00 463.22 / 463.22 Output Total 300 / 300 0 / 0 0 / 0 Balance 434.17 / 434.17 1770.00 / 1770.00 463.22 / 463.22 Medical Nutrition Assessment Dietitian: Malnutrition Criteria Met Start: 08/01/24 12:11 Freq: Status: Active Protocol: Document 08/01/24 12:12 (Rec: 08/01/24 12:12 [id number]) Nutrition Malnutrition Evidence of Yes Malnutrition Exists Malnutrition (severe Chronic ): Evidenced By Suboptimal Energy Intake (Severe),Weight Loss (Severe) Intake Problem Increased Nutrient Needs (specify) Etiology protein related to increased demand for healing Signs/Symptoms as evidenced by left lower abdominal wound and coccyx pressure injury Status Active Problem Clinical Problem Chronic Disease or Condition Related Malnutrition Etiology severe related to suboptimal appetite and multile medical problems over the past 6 months including c. diff and AAA Signs/Symptoms as evidenced by 10.8kg (18.7%) unintentional weight loss in ~5 months and PO intakes meeting <75% of estimated nutrition needs for ~5 months; BMI 14 Status Active Problem Recommendation Dietitian Recommend advancing diet as tolerated to Regular when Recommendations/ medically able to optimize oral intakes. Changes Recommend 120mL ensure plus high protein 4x daily with medpass and Pramod BID with meals to provide supplemental energy and help promote wound healing. When medically able recommend via PEG tube, enteral nutrition of Jevity 1.5 at 50mL/hr x24 hours Lab / Micro Data 08/05/24 06:04 08/05/24 06:04 Labs: Laboratory Results - last 24 hr 08/04/24 10:30: Blood Type O POSITIVE, Antibody Screen POSITIVE, Antibody Identification ANTI-C 08/04/24 10:30: Antibody Identification ANTI-Fya, Crossmatch See Detail 08/04/24 10:35: Troponin T Hi Sens 2 Hr 146 H* 08/04/24 11:55: POC Glucose 75 08/04/24 18:17: POC Glucose 76 08/04/24 18:46: Hgb 8.6 L, Hct 27.1 L 08/04/24 23:10: POC Glucose 95 08/05/24 00:59: POC Glucose 66 L 08/05/24 01:39: POC Glucose 96 08/05/24 06:04: WBC 15.3 H, RBC 3.15 L, Hgb 8.6 L, Hct 27.0 L, MCV 85.7, MCH 27.3, MCHC 31.9 L D, RDW Std Deviation 52.5 H, RDW Coeff of Monika 17.0 H, Plt Count 234, MPV 9.2, Immature Gran % (Auto) 3.900 H, Neut % (Auto) 83.9 H, Lymph % (Auto) 8.2 L, Luce % (Auto) 3.4, Eos % (Auto) 0.3, Baso % (Auto) 0.3, Absolute Neuts (auto) 12.9 H, Absolute Lymphs (auto) 1.25, Nucleated RBC % 0, Sodium 135, Potassium 5.0, Chloride 102, Carbon Dioxide 20.3 L, Anion Gap 12, BUN 55 H, C reatinine 1.69 H, Estim Creat Clear Calc 25.06 L, Est GFR (MDRD) Non-Af 34 L, B UN/Creatinine Ratio 32.7 H, Glucose 81, Calcium 7.9 08/05/24 06:20: POC Glucose 80 Physical Exam Const alert and no apparent distress Constitutional Narrative: cachectic. afebrile. HEENT head/scalp atraumatic and moist oral mucous membranes Resp normal respiratory effort, no retractions and no use of accessory muscles Cardio regular rate, regular rhythm, S1 normal heart sound and S2 normal heart sound GI normal to inspection, nondistended, normoactive bowel sounds, soft to palpation, non-tender and non-distended Extremity normal to inspection and full ROM Neuro Sensorium / Orientation: awake and alert Assessment & Plan Assessment/Plan (1) GI bleed: PLAN: 2/2 ulceration from dislodged PEG tube. on pantoprazole gtt (2) ABLA (acute blood loss anemia): PLAN: 2/2 GI bleed. Improved after transfusion. Monitor. PLAN: Plan Severe protein-calorie malnutrition: * PEG placed on 07/24. Repeat EGD on showed dislodged gastrostomy tube with the bumper buried in the cardia with large defect. Defect repaired. * DW Dr. Gallegos 08/05, ok to use PEG tube, but with continuous infusion rather than bolus feedings. Will continue at 20cc/h for now. Reevaluated in AM. No need for PICC/TPN at this time. Chronic Open abdominal wall wound: * Ongoing since February and patient did have a wound VAC at that time. Will consult wound care for input. Is complicated by her severe malnutrition. End stage renal disease: * Secondary to ATN from hemorrhagic shock and never had recovery. Patient on dialysis every Monday. Will consult nephrology. Chronic conditions * Factor V Leiden deficiency hold off on her aspirin for now. * Hypertension: Continue with amlodipine and metoprolol titrate. * Hypothyroidism: Continue levothyroxine * History of C. difficile: Does not appear to have any active symptoms at this time. * Depression: Continue sertraline. 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 Expectant management at this time VTE prophylaxis with SCDs for now Charges/Coding Visit Charges Inpatient E&M: 51908 Subs Hosp L2
[2024-08-05] MEDS: Heparin 10,000 UNITS/10 ML Vial IV (10:52)
--- NOTE | 2024-08-05 11:17 | CASEMGMT ---
YVONNE called patient's sister Janette who is her HCPOA to obtain more SNF choices. Janette said the next choice would be [facility] in [place] and then after that it would be [facility]. YVONNE told Janette YVONNE will keep her up to date. YVONNE asked Joellen to please send a referral to [facility]. Nori Valentine [employer]
[2024-08-05] MEDS: Menthol/Lanolin/Calamine/Znox 113 GM Tube 1 APPLIC TOPICAL ×3 (12:04→23:08)
[2024-08-05] MEDS: Jevity 1.5 1,000 ML 20 ML GT (13:45)
[2024-08-05] MEDS: Acetaminophen 325 MG Tablet 650 MG PO ×2 (13:57→23:02)
[2024-08-05 14:31] LABS: Bedside Glucose 72 mg/dL (74-106)
[2024-08-05] MEDS: cycloBENZAPRine HCl 5 MG TABLET PO ×2 (14:59→23:02)
--- NOTE | 2024-08-05 15:13 | CASEMGMT ---
Discharge Planning Per pts sister, family is not able to transport to/from dialysis. Joellen Billy DC Planning Asst
[2024-08-05] MEDS: Dronabinol 2.5 MG Capsule PO (16:15)
[2024-08-05 17:03] LABS: Bedside Glucose 59 mg/dL (74-106)
--- NOTE | 2024-08-05 17:26 | NURSING ---
Hypoglycemic protocol followed for patient w/ blood glucose of 59. 10% dextrose given accumulated dose of 125ml. Patient blood sugar rechecked and 102 upon recheck
[2024-08-05 17:39] LABS: Bedside Glucose 102 mg/dL (74-106)
[2024-08-05 18:38] LABS: Bedside Glucose 97 mg/dL (74-106)
--- NOTE | 2024-08-05 19:14 | PCM.PN.REN ---
Subjective Subjective no new events Objective Data Objective Data Vital Signs: Vital Signs Temp Pulse Resp BP Pulse Ox O2 Del Method O2 Flow Rate 98.3 F 65 18 146/78 H 100 Nasal Cannula 5 08/05/24 16:47 08/05/24 16:47 08/05/24 16:47 08/05/24 16:47 08/05/24 16:47 08/05/24 16:47 08/05/24 16:47 Oxygen Flow Rate (L/min) 5 Oxygen Delivery Method Nasal Cannula Weight: 44.5 kg Body Mass Index (BMI) 13.2 Intake & Output: Intake and Output for Last 24 Hours 08/03/24 08/05/24 08/05/24 23:59 00:59 23:59 Intake Total 734.17 / 734.17 1770.00 / 1770.00 1247.8450 / 1247.8450 Output Total 300 / 300 0 / 0 1750 / 1750 Balance 434.17 / 434.17 1770.00 / 1770.00 -502.1550 / -502.1550 Medical Nutrition Assessment Dietitian: Malnutrition Criteria Met Start: 08/01/24 12:11 Freq: Status: Active Protocol: Document 08/01/24 12:12 LO (Rec: 08/01/24 12:12 LO [id number]) Nutrition Malnutrition Evidence of Yes Malnutrition Exists Malnutrition (severe Chronic ): Evidenced By Suboptimal Energy Intake (Severe),Weight Loss (Severe) Intake Problem Increased Nutrient Needs (specify) Etiology protein related to increased demand for healing Signs/Symptoms as evidenced by left lower abdominal wound and coccyx pressure injury Status Active Problem Clinical Problem Chronic Disease or Condition Related Malnutrition Etiology severe related to suboptimal appetite and multile medical problems over the past 6 months including c. diff and AAA Signs/Symptoms as evidenced by 10.8kg (18.7%) unintentional weight loss in ~5 months and PO intakes meeting <75% of estimated nutrition needs for ~5 months; BMI 14 Status Active Problem Recommendation Dietitian Recommend advancing diet as tolerated to Regular when Recommendations/ medically able to optimize oral intakes. Changes Recommend 120mL ensure plus high protein 4x daily with medpass and Pramod BID with meals to provide supplemental energy and help promote wound healing. When medically able recommend via PEG tube, enteral nutrition of Jevity 1.5 at 50mL/hr x24 hours Lab / Micro Data 08/05/24 06:04 08/05/24 06:04 Labs: Laboratory Results - last 24 hr 08/04/24 23:10: POC Glucose 95 08/05/24 00:59: POC Glucose 66 L 08/05/24 01:39: POC Glucose 96 08/05/24 06:04: WBC 15.3 H, RBC 3.15 L, Hgb 8.6 L, Hct 27.0 L, MCV 85.7, MCH 27.3, MCHC 31.9 L D, RDW Std Deviation 52.5 H, RDW Coeff of Monika 17.0 H, Plt Count 234, MPV 9.2, Immature Gran % (Auto) 3.900 H, Neut % (Auto) 83.9 H, Lymph % (Auto) 8.2 L, Hudspeth % (Auto) 3.4, Eos % (Auto) 0.3, Baso % (Auto) 0.3, Absolute Neuts (auto) 12.9 H, Absolute Lymphs (auto) 1.25, Nucleated RBC % 0, Sodium 135, Potassium 5.0, Chloride 102, Carbon Dioxide 20.3 L, Anion Gap 12, BUN 55 H, Creatinine 1.69 H, Estim Creat Clear Calc 25.06 L, Est GFR (MDRD) Non-Af 34 L, BUN/Creatinine Ratio 32.7 H, Glucose 81, Calcium 7.9 08/05/24 06:20: POC Glucose 80 08/05/24 13:58: POC Glucose 72 L 08/05/24 16:42: POC Glucose 59 L 08/05/24 17:21: POC Glucose 102 08/05/24 18:19: POC Glucose 97 Physical Exam Narrative Alert awake oriented x 3 no obvious distress no pallor no icterus no JVD s1s2 no murmurs lungs clear abdomen soft no organomegaly no edema Assessment & Plan Assessment/Plan (1) End stage renal disease: PLAN: ESRD Hyperkalemia HD today see orders
[2024-08-05 20:43] LABS: Bedside Glucose 74 mg/dL (74-106)
[2024-08-05] MEDS: Atorvastatin Calcium 20 MG Tablet PO (23:00)
[2024-08-05] MEDS: Metoprolol Tartrate 25 MG Tablet PO (23:00)
[2024-08-05] MEDS: Mirtazapine 30 MG Tablet PO (23:01)
[2024-08-05] MEDS: amLODIPine 5 MG Tablet PO (23:01)
[2024-08-05] MEDS: Thiamine Hydrochloride 100 MG Tablet PO (23:02)
[2024-08-05] MEDS: Dextrose 5%-Water (1000mL Bag) 1,000 ML 70 ML IV (23:09)
[2024-08-06] VITALS (8 sets, daily range): BP systolic 146–179; BP diastolic 72–85; PULSE 58–65; RESP 16–18; TEMP 36.2–36.7; O2SAT 98–100
[2024-08-06 00:09] LABS: Bedside Glucose 74 mg/dL (74-106)
[2024-08-06 01:15] LABS: Bedside Glucose 93 mg/dL (74-106)
[2024-08-06] MEDS: Levothyroxine 100 MCG Tablet 200 MCG PO (05:01)
[2024-08-06] MEDS: Piperacil/Tazobactam 3.375 GM in 0.9% Normal Saline (50mL MB+) 50 ML IV ×3 (05:04→22:17)
[2024-08-06 05:49] LABS: Absolute Neutrophil Count 6.5 X10^3/uL (2.0-7.7); Basophil# 0.07 X10^3/uL; Basophil% 0.9 % (0-1); Eosinophil# 0.12 X10^3/uL; Eosinophils% 1.5 % (0-5); Hematocrit 26.8 % (37-47); Hemoglobin 8.2 g/dL (12.0-15.0); Lymphocyte % 12.2 % (19-41); Mean Corp Hgb Conc 30.6 g/dL (32-36); Mean Corpuscular Volume 88.2 fL (81-99); Mean Platelet Vol. 9.3 fl (6.2-12.0); Monocyte# 0.31 X10^3/uL; Monocyte% 3.8 % (0-10); NRBC Flagged by Analyzer 0 % (0-5); Platelet Count 167 K/mm3 (150-450); RBC Distribution Width CV 17.7 % (11.6-14.6); RBC Distribution Width SD 56.7 fl (35.1-43.9); Red Blood Count 3.04 M/mm3 (4.2-5.4); White Blood Count 8.2 K/mm3 (4.4-11.0)
[2024-08-06] MEDS: Pantoprazole Sodium 80 MG in 0.9% Normal Saline (100mL Bag) 80 ML 10 MG CONT INF ×2 (05:51→16:40)
[2024-08-06 06:13] LABS: Bedside Glucose 71 mg/dL (74-106)
[2024-08-06] MEDS: Dextrose 10%-Water 250 ML 70 ML IV (06:33)
[2024-08-06 06:36] LABS: Anion Gap 10 (5-15); BUN 38 mg/dL (4-19); BUN/Creat Ratio 29.8 RATIO (10-20); Calcium,Total 7.5 mg/dL (7.6-11.0); Carbon Dioxide 21.2 mmol/L (21.0-32.0); Chloride 102 mmol/L (98-108); Creatinine, Serum 1.27 mg/dL (0.70-1.20); EST Glomerular Filtration Rate 48 (>60); Estimated Creatinine Clearance 32.27 ml/min (50-250); Glucose 94 mg/dL (70-99); Potassium 3.7 mmol/L (3.3-5.1); Sodium Level 133 mmol/L (133-145)
[2024-08-06 07:25] LABS: Bedside Glucose 73 mg/dL (74-106)
--- NOTE | 2024-08-06 08:43 | PN.HOSP_ITS ---
Reason for Visit Reason for Visit: Diagnoses Acute posthemorrhagic anemia (07/31/24) Hematemesis (07/31/24) Gastrointestinal hemorrhage, unspecified (07/31/24) End stage renal disease (07/31/24) Subjective Subjective Feeling well. Tolerating tube feeds. Objective Data Objective Data Vital Signs: Vital Signs Temp Pulse Resp BP Pulse Ox O2 Del Method O2 Flow Rate 36.2 C L 58 L 18 146/72 H 98 High Flow 3 08/06/24 04:33 08/06/24 04:33 08/06/24 04:33 08/06/24 04:33 08/06/24 05:05 08/06/24 05:05 08/06/24 05:05 Oxygen Flow Rate (L/min) 3 Oxygen Delivery Method High Flow Weight: 44.5 kg Body Mass Index (BMI) 13.2 Intake & Output: Intake and Output for Last 24 Hours 08/05/24 08/05/24 08/06/24 00:59 23:59 23:59 Intake Total 1770.00 / 1770.00 1347.8450 / 1347.8450 659.33 / 659.33 Output Total 0 / 0 1750 / 1750 Balance 1770.00 / 1770.00 -402.1550 / -402.1550 659.33 / 659.33 Medical Nutrition Assessment Dietitian: Malnutrition Criteria Met Start: 08/01/24 12:11 Freq: Status: Active Protocol: Document 08/01/24 12:12 LO (Rec: 08/01/24 12:12 LO [id number]) Nutrition Malnutrition Evidence of Yes Malnutrition Exists Malnutrition (severe Chronic ): Evidenced By Suboptimal Energy Intake (Severe),Weight Loss (Severe) Intake Problem Increased Nutrient Needs (specify) Etiology protein related to increased demand for healing Signs/Symptoms as evidenced by left lower abdominal wound and coccyx pressure injury Status Active Problem Clinical Problem Chronic Disease or Condition Related Malnutrition Etiology severe related to suboptimal appetite and multile medical problems over the past 6 months including c. diff and AAA Signs/Symptoms as evidenced by 10.8kg (18.7%) unintentional weight loss in ~5 months and PO intakes meeting <75% of estimated nutrition needs for ~5 months; BMI 14 Status Active Problem Recommendation Dietitian Recommend advancing diet as tolerated to Regular when Recommendations/ medically able to optimize oral intakes. Changes Recommend 120mL ensure plus high protein 4x daily with medpass and Pramod BID with meals to provide supplemental energy and help promote wound healing. When medically able recommend via PEG tube, enteral nutrition of Jevity 1.5 at 50mL/hr x24 hours Lab / Micro Data 08/06/24 04:39 08/06/24 04:39 Labs: Laboratory Results - last 24 hr 08/05/24 13:58: POC Glucose 72 L 08/05/24 16:42: POC Glucose 59 L 08/05/24 17:21: POC Glucose 102 08/05/24 18:19: POC Glucose 97 08/05/24 20:06: POC Glucose 74 08/05/24 23:23: POC Glucose 74 08/06/24 00:54: POC Glucose 93 08/06/24 04:39: WBC 8.2, RBC 3.04 L, Hgb 8.2 L, Hct 26.8 L, MCV 88.2, MCH 27.0, MCHC 30.6 L, RDW Std Deviation 56.7 H, RDW Coeff of Monika 17.7 H, Plt Count 167, MPV 9.3, Immature Gran % (Auto) 2.600 H, Neut % (Auto) 79.0 H, Lymph % (Auto) 12.2 L, Cocke % (Auto) 3.8, Eos % (Auto) 1.5, Baso % (Auto) 0.9, Absolute Neuts (auto) 6.5, Absolute Lymphs (auto) 1.00, Nucleated RBC % 0, Sodium 133, Potassium 3.7, Chloride 102, Carbon Dioxide 21.2, Anion Gap 10, BUN 38 H, C reatinine 1.27 H, Estim Creat Clear Calc 32.27 L, Est GFR (MDRD) Non-Af 48 L, B UN/Creatinine Ratio 29.8 H, Glucose 94, Calcium 7.5 L 08/06/24 05:50: POC Glucose 71 L 08/06/24 07:08: POC Glucose 73 L Physical Exam Const alert and no apparent distress HEENT head/scalp atraumatic and moist oral mucous membranes Resp normal respiratory effort, no retractions, no use of accessory muscles and clear to auscultation bilaterally Cardio regular rate, regular rhythm, S1 normal heart sound and S2 normal heart sound GI GI Narrative: PEG in place. Left lateral wound bandaged--did not remove. Neuro Sensorium / Orientation: awake and alert Assessment & Plan Assessment/Plan (1) GI bleed: PLAN: 2/2 ulceration from dislodged PEG tube. on pantoprazole gtt (2) ABLA (acute blood loss anemia): PLAN: 2/2 GI bleed. Improved after transfusion. Monitor. PLAN: Plan Severe protein-calorie malnutrition: * PEG placed on 07/24. Repeat EGD on showed dislodged gastrostomy tube with the bumper buried in the cardia with large defect. Defect repaired. * DANIEL Gallegos 08/05, ok to use PEG tube, but with continuous infusion rather than bolus feedings. Will continue at 20cc/h for now. Reevaluated in AM. No need for PICC/TPN at this time. * 08/06: advanced tube feeds to 30cc/h. Will reevaluate on the if we can advance further. Chronic Open abdominal wall wound: * Ongoing since February and patient did have a wound VAC at that time. Will consult wound care for input. Is complicated by her severe malnutrition. End stage renal disease: * Secondary to ATN from hemorrhagic shock and never had recovery. Patient on dialysis every Monday. Will consult nephrology. Chronic conditions * Factor V Leiden deficiency hold off on her aspirin for now. * Hypertension: Continue with amlodipine and metoprolol titrate. * Hypothyroidism: Continue levothyroxine * History of C. difficile: Does not appear to have any active symptoms at this time. * Depression: Continue sertraline. 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 Expectant management at this time VTE prophylaxis with SCDs for now Charges/Coding Visit Charges Inpatient E&M: 51386 Subs Hosp L2
[2024-08-06] MEDS: Menthol/Lanolin/Calamine/Znox 113 GM Tube 1 APPLIC TOPICAL ×3 (08:45→22:19)
[2024-08-06] MEDS: Metoprolol Tartrate 25 MG Tablet PO ×2 (08:46→22:21)
[2024-08-06] MEDS: Lactobacillis Acidophilus 1 CAP PO (08:46)
[2024-08-06] MEDS: Thiamine Hydrochloride 100 MG Tablet PO ×2 (08:47→22:20)
[2024-08-06] MEDS: Folic Acid/Vitamin B Comp W-C 1 Capsule 1 CAP PO (08:47)
[2024-08-06] MEDS: Ascorbic Acid 500 MG Tablet PO (08:48)
[2024-08-06] MEDS: Cholecalciferol (Vit D3) 125 MCG CAPSULE (5,000 UNITS) PO (08:48)
[2024-08-06] MEDS: Sertraline 50 MG Tablet 25 MG PO (08:48)
--- NOTE | 2024-08-06 09:04 | CASEMGMT ---
Discharge Planning Referral sent to [facility] who declined d/t being out of network. SW updated. Joellen Billy DC Planning Asst.
--- NOTE | 2024-08-06 09:13 | CASEMGMT ---
Addendum entered by Joellen Billy 08/06/24 11:07: [facility] declined. Joellen Billy DC Planning Asst. Original Note: Discharge Planning Referral sent to [facility]. Joellen Billy DC Planning Asst.
--- NOTE | 2024-08-06 11:27 | CASEMGMT ---
YVONNE called patient's sister Janette as YVONNE needs more SNF choices. Janette was not sure and asked if YVONNE could send her a list of facilities that are [place] [address]. YVONNE asked Joellen to please email a list to Janette. YVONNE also emailed Janette information on the [employer] alf navigator website. Nori Valentine [employer]
--- NOTE | 2024-08-06 11:35 | PCM.PN.REN ---
Subjective Subjective Patient is resting in bed. Alert and oriented. No complaints. Objective Data Objective Data Vital Signs: Vital Signs Temp Pulse Resp BP Pulse Ox O2 Del Method O2 Flow Rate 97.4 F L 65 16 172/85 H 100 Nasal Cannula 3 08/06/24 08:40 08/06/24 08:46 08/06/24 08:40 08/06/24 08:40 08/06/24 08:40 08/06/24 09:34 08/06/24 09:34 Oxygen Flow Rate (L/min) 3 Oxygen Delivery Method Nasal Cannula Weight: 44.5 kg Body Mass Index (BMI) 13.2 Intake & Output: Intake and Output for Last 24 Hours 08/05/24 08/05/24 08/06/24 00:59 23:59 23:59 Intake Total 1770.00 / 1770.00 1347.8450 / 1347.8450 1371.66 / 1371.66 Output Total 0 / 0 1750 / 1750 Balance 1770.00 / 1770.00 -402.1550 / -402.1550 1371.66 / 1371.66 Medical Nutrition Assessment Dietitian: Malnutrition Criteria Met Start: 08/01/24 12:11 Freq: Status: Active Protocol: Document 08/01/24 12:12 LO (Rec: 08/01/24 12:12 [id number]) Nutrition Malnutrition Evidence of Yes Malnutrition Exists Malnutrition (severe Chronic ): Evidenced By Suboptimal Energy Intake (Severe),Weight Loss (Severe) Intake Problem Increased Nutrient Needs (specify) Etiology protein related to increased demand for healing Signs/Symptoms as evidenced by left lower abdominal wound and coccyx pressure injury Status Active Problem Clinical Problem Chronic Disease or Condition Related Malnutrition Etiology severe related to suboptimal appetite and multile medical problems over the past 6 months including c. diff and AAA Signs/Symptoms as evidenced by 10.8kg (18.7%) unintentional weight loss in ~5 months and PO intakes meeting <75% of estimated nutrition needs for ~5 months; BMI 14 Status Active Problem Recommendation Dietitian Recommend advancing diet as tolerated to Regular when Recommendations/ medically able to optimize oral intakes. Changes Recommend 120mL ensure plus high protein 4x daily with medpass and Pramod BID with meals to provide supplemental energy and help promote wound healing. When medically able recommend via PEG tube, enteral nutrition of Jevity 1.5 at 50mL/hr x24 hours Lab / Micro Data 08/06/24 04:39 08/06/24 04:39 Labs: Laboratory Results - last 24 hr 08/05/24 13:58: POC Glucose 72 L 08/05/24 16:42: POC Glucose 59 L 08/05/24 17:21: POC Glucose 102 08/05/24 18:19: POC Glucose 97 08/05/24 20:06: POC Glucose 74 08/05/24 23:23: POC Glucose 74 08/06/24 00:54: POC Glucose 93 08/06/24 04:39: WBC 8.2, RBC 3.04 L, Hgb 8.2 L, Hct 26.8 L, MCV 88.2, MCH 27.0, MCHC 30.6 L, RDW Std Deviation 56.7 H, RDW Coeff of Monika 17.7 H, Plt Count 167, MPV 9.3, Immature Gran % (Auto) 2.600 H, Neut % (Auto) 79.0 H, Lymph % (Auto) 12.2 L, [place] % (Auto) 3.8, Eos % (Auto) 1.5, Baso % (Auto) 0.9, Absolute Neuts (auto) 6.5, Absolute Lymphs (auto) 1.00, Nucleated RBC % 0, Sodium 133, Potassium 3.7, Chloride 102, Carbon Dioxide 21.2, Anion Gap 10, BUN 38 H, Creatinine 1.27 H, Estim Creat Clear Calc 32.27 L, Est GFR (MDRD) Non-Af 48 L, BUN/Creatinine Ratio 29.8 H, Glucose 94, Calcium 7.5 L 08/06/24 05:50: POC Glucose 71 L 08/06/24 07:08: POC Glucose 73 L Physical Exam Narrative Alert awake oriented x 3 no obvious distress s1s2 no murmurs lungs clear abdomen soft. PEG tube intact no edema Tunneled HD catheter dressing clean, dry and intact Assessment & Plan Assessment/Plan (1) End stage renal disease: PLAN: - ESRD on hemodialysis Monday at [facility]. Patient dialyzed yesterday with around 1.7 L fluid removal. No acute indication for [employer] today, next dialysis tomorrow. Serum creatinine is underestimated given patient's low muscle mass/cachexia. Patient is essentially anuric. Will send Cystatin C. -Anemia of chronic disease; patient receives DENISE and iron at dialysis. Will monitor hemoglobin trends.
--- NOTE | 2024-08-06 11:37 | CASEMGMT ---
Discharge Planning A list of?SNF providers including quality and resource use data and consistent with the patient's preferred geographic region, medical needs, and insurance network was created in [employer] Guide.? This list was provided to the SW. Joellen Billy Discharge Planning Asst.
--- NOTE | 2024-08-06 11:51 | CASEMGMT ---
YVONNE received a voice mail from patient's sister Janette. Janette asked that a referral be sent to [place]. Janette said she will continue to look at the list. YVONNE asked Joellen to please send a referral to [place]. oNri Valentine CDC ASSOCIATE BENJA
[2024-08-06] MEDS: Dronabinol 2.5 MG Capsule PO ×2 (11:52→16:45)
--- NOTE | 2024-08-06 11:58 | CASEMGMT ---
Addendum entered by Joellen Billy 08/07/24 10:21: Referral cancelled per family request d/t transport issues. Joellen Billy DC Planning Asst. Original Note: Discharge Planning Referral sent to [facility]. Joellen Billy DC Planning Asst.
[2024-08-06 12:14] LABS: Bedside Glucose 77 mg/dL (74-106)
--- NOTE | 2024-08-06 12:30 | CASEMGMT ---
YVONNE received a phone call from Janette. Janette spoke with patient and patient would like a copy of the list as her will be coming in today. SW took patient the list of intermediate facility providers including quality and resource use data and consistent with patient?s preferred geographic region, medical needs, and insurance network were provided from the [employer] Guide. Patient wanted 2 copies of the list so she could give one to her . Janette said she wants everyone to be on board with the decision (meaning herself, her sister, and ).?? Nori YOUSIF
[2024-08-06] MEDS: Acetaminophen 325 MG Tablet 650 MG PO (14:14)
[2024-08-06] MEDS: Jevity 1.5 1,000 ML 30 ML GT (14:15)
[2024-08-06 18:45] LABS: Bedside Glucose 108 mg/dL (74-106)
--- NOTE | 2024-08-06 20:30 | CT_ITS ---
PROCEDURE: ABDOMEN/PELVIS WITH CONTRAST REASON FOR EXAM: SUSPECTED ABSCESS PEG INSERTION SITE TECHNIQUE: Abdomen and pelvis CT with intravenous contrast. IV CONTRAST: 100 cc of Isovue-300. Gastrografin was also ingested. COMPARISON: CT of the abdomen/pelvis dated 07/31/2024. FINDINGS: There are moderate bilateral pleural effusions present There is no free air within the abdomen and pelvis. There is mild intrahepatic biliary ductal dilatation, similar to prior. The gallbladder is distended. The spleen, adrenals are within normal limits. The right kidney is not visualized. The left kidney is atrophic. Previously noted intra-abdominal collection appears overall increased when compared to prior examination. Within the right renal fossa, enlarged heterogeneous collection exist. This collection extends throughout the right retroperitoneum into near the pelvis. Near the pelvis, there are several rim enhancing collections again identified. Rim enhancing collection is also seen within the left retroperitoneum and left lower abdominal quadrant. These findings are present on prior. Gastrostomy tube is present with tip within the stomach. There is no evidence of extraluminal contrast. The stomach is decompressed compared to prior examination. There is however fluid to the outside of the gastrostomy tube tract. This is increased since prior examination. The urinary bladder is distended. No evidence of bowel obstruction. Aortobifem bypass surgery changes is present. Left common iliac artery stent remains. Apparent calcification within the bilateral inguinal and retroperitoneal lymph nodes. The etiology to be determined. No acute osseous abnormality seen. Left lower abdominal wall defect remains. CT/Abdomen/Pelvis WITH Contrast IMPRESSION: Gastrostomy tube is noted with tip within the stomach. There is no ellie eviden ce of contrast extravasation. There is fluid around the gastrostomy tube, outside of the stomach which appear s to be increased since prior examination. This may represent leakage of gastric contents versus increasing intra-abdominal col lection. The patient may benefit from direct injection of the gastrostomy tube under fluoroscopy. Complex abdominal fluid collections remain, largest collection seen within the right retroperitoneum. This appears overall increased since prior examination. If not contraindicated, may consider placement of intra-abdominal drainage cath eters by Interventional Radiology for decompression of these fluid collections. Moderate bilateral pleural effusions with compressive atelectasis at the lung b ases. Other findings as above. One or more dose reduction techniques were used (e.g., Automated exposure contr ol, adjustment of the mA and/or kV according to patient size, use of iterative reconstruction technique). Reading Location: [id number]
--- NOTE | 2024-08-06 21:11 | PN_ITS ---
Progress Note Evaluated patient at the bedside. She does not have any abdominal pain. She has not been taken anything by mouth. She has been getting tube feedings. Physical Exam Const alert and oriented x3 Constitutional Narrative: very malnourished, cachectic. BMI is 13.8. Frail and weak. General Appearance: cooperative HEENT normocephalic, head/scalp atraumatic and moist oral mucous membranes Eyes PERRL and EOMs intact bilaterally Neck no lymphadenopathy and supple Lymph Lymphatic: no lymphadenopathy noted Resp normal respiratory effort, normal air movement and clear to auscultation bilaterally Cardio regular rate, regular rhythm, S1 normal heart sound, S2 normal heart sound and no murmurs GI normal to inspection, nondistended, normoactive bowel sounds, soft to palpation, non-tender and non-distended GI Narrative: Mildly inflamed around the PEG tube site Extremity normal capillary refill General Extremity: no tenderness to palpation of joints or extremities Skin General Skin Exam: no breakdown Neuro CN's II-XII intact bilaterally and no focal motor deficits Motor Exam: general weakness Psych thought process normal Mood & Affect: flat affect Assessment & Plan Assessment/Plan (1) Acute upper gastrointestinal bleeding: (2) Coffee ground emesis: PLAN: Plan #Acute on chronic anemia due to probable UGI bleed * Patient was admitted with a complaint of coffee-ground emesis. A PEG tube was also suctioned which showed coffee-ground material. * CT of the abdomen and pelvis done on admission concerning for esophagitis with gastritis. * GI on board. She had EGD t which showed normal esophagus and dislodged gastrostomy tube present characterized by ulceration which was treated with argon plasma coagulation and a nonbleeding large defect due to buried PEG tube bumper found in the stomach. Clips were placed. No gross lesions in the duodenal bulb. * Hb today seems to be holding steady. * And IV pantoprazole. * Due to the fact that she is having a lot of excoriation around the PEG tube I will order a CT scan abdomen pelvis with oral and IV contrast as she is getting hemodialysis tomorrow. Visit Charges Inpatient E&M: 02515 [facility] Hosp L3
[2024-08-06] MEDS: 0.9% Saline Lock 10 ML Syringe IV (22:17)
[2024-08-06] MEDS: amLODIPine 5 MG Tablet PO (22:20)
[2024-08-06] MEDS: Atorvastatin Calcium 20 MG Tablet PO (22:21)
[2024-08-06] MEDS: Mirtazapine 30 MG Tablet PO (22:21)
[2024-08-07] VITALS (18 sets, daily range): BP systolic 84–266; BP diastolic 60–96; PULSE 62–76; RESP 12–18; TEMP 35.8–36.8; O2SAT 95–98; BMI 13.2; BMI 12.8
[2024-08-07 00:52] LABS: Bedside Glucose 79 mg/dL (74-106)
[2024-08-07] MEDS: Pantoprazole Sodium 80 MG in 0.9% Normal Saline (100mL Bag) 80 ML 10 MG CONT INF ×3 (03:12→23:15)
[2024-08-07 04:57] LABS: Bedside Glucose 76 mg/dL (74-106)
[2024-08-07 05:08] LABS: Anion Gap 11 (5-15); BUN 44 mg/dL (4-19); BUN/Creat Ratio 29.1 RATIO (10-20); Calcium,Total 7.5 mg/dL (7.6-11.0); Carbon Dioxide 19.3 mmol/L (21.0-32.0); Chloride 103 mmol/L (98-108); EST Glomerular Filtration Rate 39 (>60); Estimated Creatinine Clearance 27.32 ml/min (50-250); Glucose 84 mg/dL (70-99); Potassium 3.7 mmol/L (3.3-5.1); Sodium Level 133 mmol/L (133-145)
[2024-08-07 05:11] LABS: Absolute Lymphocyte Count 0.82 X10^3/uL (0.83-4.51); Absolute Neutrophil Count 9.6 X10^3/uL (2.0-7.7); Basophil# 0.06 X10^3/uL; Basophil% 0.5 % (0-1); Eosinophil# 0.14 X10^3/uL; Eosinophils% 1.3 % (0-5); Hematocrit 29.4 % (37-47); Hemoglobin 9.1 g/dL (12.0-15.0); Lymphocyte # 0.82 X10^3/ul (0.83-4.51); Lymphocyte % 7.3 % (19-41); Mean Corpuscular Hgb 27.1 pg (27.0-32.0); Mean Corpuscular Volume 87.5 fL (81-99); Mean Platelet Vol. 9.8 fl (6.2-12.0); Monocyte# 0.39 X10^3/uL; Monocyte% 3.5 % (0-10); NRBC Flagged by Analyzer 0 % (0-5); Neutrophil # 9.56 X10^3/uL (2.7-7.7); Neutrophil % 85.3 % (47-70); Platelet Count 163 K/mm3 (150-450); RBC Distribution Width CV 18.6 % (11.6-14.6); RBC Distribution Width SD 57.8 fl (35.1-43.9); Red Blood Count 3.36 M/mm3 (4.2-5.4); White Blood Count 11.2 K/mm3 (4.4-11.0)
[2024-08-07] MEDS: Levothyroxine 100 MCG Tablet 200 MCG PO (05:59)
[2024-08-07] MEDS: Piperacil/Tazobactam 3.375 GM in 0.9% Normal Saline (50mL MB+) 50 ML IV ×2 (05:59→22:41)
[2024-08-07 06:51] LABS: Bedside Glucose 95 mg/dL (74-106)
[2024-08-07] MEDS: 0.9% Saline Lock 10 ML Syringe IV ×2 (07:48→10:30)
[2024-08-07] MEDS: 0.9% Normal Saline 1,000 ML IV.SOLN. 1000 ML OPERA.SITE (07:48)
[2024-08-07] MEDS: PureFlow B 4K Dialysis Soln 1 BAG 6 BAG PF (07:48)
--- NOTE | 2024-08-07 08:56 | PCM.PN.HOSP ---
Reason for Visit Reason for Visit: Diagnoses Acute posthemorrhagic anemia (07/31/24) Hematemesis (07/31/24) Gastrointestinal hemorrhage, unspecified (07/31/24) End stage renal disease (07/31/24) Subjective Subjective Feels well. Tolerating tube feeds. Wants something more to eat. Objective Data Objective Data Vital Signs: Vital Signs Temp Pulse Resp BP Pulse Ox O2 Del Method O2 Flow Rate 36.8 C 73 16 135/71 H 98 Nasal Cannula 2 08/07/24 07:33 08/07/24 08:33 08/07/24 08:33 08/07/24 08:33 08/07/24 07:33 08/07/24 08:33 08/07/24 08:33 FiO2 95 08/06/24 11:09 Oxygen Flow Rate (L/min) 2 Oxygen Delivery Method Nasal Cannula Weight: 44.5 kg Body Mass Index (BMI) 13.2 Intake & Output: Intake and Output for Last 24 Hours 08/05/24 08/06/24 08/07/24 23:59 23:59 23:59 Intake Total 1347.8450 / 1347.8450 1877.66 / 1877.66 390 / 390 Output Total 1750 / 1750 Balance -402.1550 / -402.1550 1877.66 / 1877.66 390 / 390 Medical Nutrition Assessment Dietitian: Malnutrition Criteria Met Start: 08/01/24 12:11 Freq: Status: Active Protocol: Document 08/01/24 12:12 LO (Rec: 08/01/24 12:12 LO [id number]) Nutrition Malnutrition Evidence of Yes Malnutrition Exists Malnutrition (severe Chronic ): Evidenced By Suboptimal Energy Intake (Severe),Weight Loss (Severe) Intake Problem Increased Nutrient Needs (specify) Etiology protein related to increased demand for healing Signs/Symptoms as evidenced by left lower abdominal wound and coccyx pressure injury Status Active Problem Clinical Problem Chronic Disease or Condition Related Malnutrition Etiology severe related to suboptimal appetite and multile medical problems over the past 6 months including c. diff and AAA Signs/Symptoms as evidenced by 10.8kg (18.7%) unintentional weight loss in ~5 months and PO intakes meeting <75% of estimated nutrition needs for ~5 months; BMI 14 Status Active Problem Recommendation Dietitian Recommend advancing diet as tolerated to Regular when Recommendations/ medically able to optimize oral intakes. Changes Recommend 120mL ensure plus high protein 4x daily with medpass and Pramod BID with meals to provide supplemental energy and help promote wound healing. When medically able recommend via PEG tube, enteral nutrition of Jevity 1.5 at 50mL/hr x24 hours Lab / Micro Data 08/07/24 04:23 08/07/24 04:23 Labs: Laboratory Results - last 24 hr 08/06/24 11:51: POC Glucose 77 08/06/24 18:27: POC Glucose 108 H 08/07/24 00:14: POC Glucose 79 08/07/24 03:14: POC Glucose 76 08/07/24 04:23: WBC 11.2 H, RBC 3.36 L, Hgb 9.1 L, Hct 29.4 L, MCV 87.5, MCH 27.1, MCHC 31.0 L, RDW Std Deviation 57.8 H, RDW Coeff of Monika 18.6 H, Plt Count 163, MPV 9.8, Immature Gran % (Auto) 2.100 H, Neut % (Auto) 85.3 H, Lymph % (Auto) 7.3 L, [place] % (Auto) 3.5, Eos % (Auto) 1.3, Baso % (Auto) 0.5, Absolute Neuts (auto) 9.6 H, Absolute Lymphs (auto) 0.82 L, Nucleated RBC % 0, Sodium 133, Potassium 3.7, Chloride 103, Carbon Dioxide 19.3 L, Anion Gap 11, BUN 44 H, Creatinine 1.50 H, Estim Creat Clear Calc 27.32 L, Est GFR (MDRD) Non-Af 39 L, BUN/Creatinine Ratio 29.1 H, Glucose 84, Calcium 7.5 L 08/07/24 05:57: POC Glucose 95 Micro: Microbiology 08/07/24 00:30 Stool C. difficile GDH Antigen & Toxins - Final 08/07/24 00:30 Stool Clostridioides difficile (PCR) - Final Radiography Diagnostic Testing: Radiology Impression Abdomen/Pelvis CT 08/06/24 20:30 IMPRESSION: Gastrostomy tube is noted with tip within the stomach. There is no ellie evidence of contrast extravasation. There is fluid around the gastrostomy tube, outside of the stomach which appears to be increased since prior examination. This may represent leakage of gastric contents versus increasing intra-abdominal collection. The patient may benefit from direct injection of the gastrostomy tube under fluoroscopy. Complex abdominal fluid collections remain, largest collection seen within the right retroperitoneum. This appears overall increased since prior examination. If not contraindicated, may consider placement of intra-abdominal drainage catheters by Interventional Radiology for decompression of these fluid collections. Moderate bilateral pleural effusions with compressive atelectasis at the lung bases. Other findings as above. One or more dose reduction techniques were used (e.g., Automated exposure control, adjustment of the mA and/or kV according to patient size, use of iterative reconstruction technique). Reading Location: [facility] Physical Exam Const alert and no apparent distress HEENT head/scalp atraumatic and moist oral mucous membranes Resp normal respiratory effort and no retractions Cardio regular rate, regular rhythm, S1 normal heart sound and S2 normal heart sound GI normal to inspection, nondistended, normoactive bowel sounds, soft to palpation, non-tender and non-distended GI Narrative: PEG in place. Extremity normal to inspection Assessment & Plan Assessment/Plan (1) GI bleed: PLAN: 2/2 ulceration from dislodged PEG tube. on pantoprazole gtt (2) ABLA (acute blood loss anemia): PLAN: 2/2 GI bleed. Improved after transfusion. Monitor. Currently stable. (3) Abnormal CT of the abdomen: PLAN: CT showes gastrostomy tube noted within the stomach. No ellie evidence of contrast extravasation. Fluid around the gastrostomy tube, outside stomach which appears to be increase in his prior examination. This may represent leakage of gastric contents versus increasing intra-abdominal collection. Complex abdominal fluid collection remain largest collection seen when in the right retroperitoneum. Appears overall increased since prior examination. I discussed with Dr. Gallegos who recommended percutaneous drain. Spoke with Dr. Haas who states that there is a lot of bowel that would make percutaneous drain much more complex and risky. He advised against percutaneous drain but it I recommend follow-up CAT scan about a week's time to see if there is been any increased fluid collection that may be more amenable to percutaneous drain. (4) Diarrhea: PLAN: Positive for C. difficile antigen but negative for toxin so not active C. difficile. Likely due to the tube feeds and poor nutrition overall. Will add loperamide to see if we can slow her down. PLAN: Plan Severe protein-calorie malnutrition: PEG placed on 07/24. Repeat EGD on showed dislodged gastrostomy tube with the bumper buried in the cardia with large defect. Defect repaired. DANIEL Gallegos 08/05, ok to use PEG tube, but with continuous infusion rather than bolus feedings. Will continue at 20cc/h for now. Reevaluated in AM. No need for PICC/TPN at this time. 08/06: advanced tube feeds to 30cc/h. 08/07: Continue the tube feeds at current rate. Also continue with clear liquid diet for now given the CT findings from the . Chronic Open abdominal wall wound: Ongoing since February and patient did have a wound VAC at that time. Will consult wound care for input. Is complicated by her severe malnutrition. End stage renal disease: Secondary to ATN from hemorrhagic shock and never had recovery. Patient on dialysis every Monday. Will consult nephrology. Chronic conditions Factor V Leiden deficiency hold off on her aspirin for now. Hypertension: Continue with amlodipine and metoprolol titrate. Hypothyroidism: Continue levothyroxine History of C. difficile: Does not appear to have any active symptoms at this time. Depression: Continue sertraline. 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 Expectant management at this time VTE prophylaxis with SCDs for now Greater than 55 minutes of which greater than for physician time was counseling with the consultants, discussing with the patient about CAT scan findings and management. Charges/Coding Visit Charges Inpatient E&M: 17548 Subs Hosp L3
[2024-08-07] MEDS: Lactobacillis Acidophilus 1 CAP PO (09:22)
[2024-08-07] MEDS: Cholecalciferol (Vit D3) 125 MCG CAPSULE (5,000 UNITS) PO (09:22)
[2024-08-07] MEDS: Thiamine Hydrochloride 100 MG Tablet PO ×2 (09:22→22:42)
[2024-08-07] MEDS: Ascorbic Acid 500 MG Tablet PO (09:22)
[2024-08-07] MEDS: Folic Acid/Vitamin B Comp W-C 1 Capsule 1 CAP PO (09:22)
[2024-08-07] MEDS: Sertraline 50 MG Tablet 25 MG PO (09:23)
[2024-08-07] MEDS: Acetaminophen 325 MG Tablet 650 MG PO (09:25)
[2024-08-07] MEDS: Menthol/Lanolin/Calamine/Znox 113 GM Tube 1 APPLIC TOPICAL ×4 (09:26→22:42)
--- NOTE | 2024-08-07 10:16 | CASEMGMT ---
SW went to patient's room. Patient was getting dialysis. She had her head covered up with blanket, but patient was willing to talk with SW. SW explained that [facility] would charge her for transportation, but they could not guarantee they would have transportation. Patient said she and her sister did pick out a couple of other places. Patient asked SW to call her sister. SW called Janette and explained what [facility] said. Janette said they are out then. The next two choices are [facility] and [facility]. Janette did mention [facility], but SW told her they do not provide transportation to dialysis. SW asked Joellen to send a referral to [facility] and [facility]. Nori Valentine SOLUTION COORDINATOR BENJA
--- NOTE | 2024-08-07 10:21 | CASEMGMT ---
Addendum entered by Joellen Billy 08/08/24 10:25: [facility] and [facility] have declined. Joellen Billy DC Planning Asst. Original Note: Discharge Planning Referral sent to [facility]. Joellen Billy DC Planning Asst.
--- NOTE | 2024-08-07 10:25 | CASEMGMT ---
Janette called YVONNE and said another option they would like a referral sent to is [facility]. YVONNE asked Joellen to send a referral to [facility]. Nori Valentine EMERGENCY CARE TECH BENJA
[2024-08-07] MEDS: Heparin 10,000 UNITS/10 ML Vial IV (10:31)
--- NOTE | 2024-08-07 10:36 | CASEMGMT ---
Addendum entered by Joellen Billy 08/08/24 12:17: [facility] declined referral. SW updated. Joellen Billy DC Planning Asst. Original Note: Discharge Planning Referral sent to [facility]. Joellen Billy DC Planning Asst.
[2024-08-07] MEDS: Metoprolol Tartrate 25 MG Tablet PO ×2 (12:22→22:42)
[2024-08-07] MEDS: Dronabinol 2.5 MG Capsule PO ×2 (13:43→17:37)
[2024-08-07] MEDS: Jevity 1.5 1,000 ML 30 ML GT (13:45)
--- NOTE | 2024-08-07 14:57 | CASEMGMT ---
Anitra from [facility] came and spoke with patient about her concerns with [facility]. SW spoke with Anitra after her conversation and patient told her the food was bad and that therapy was not on a regular schedule. Anitra did tell patient that she is welcome to return and the SW at [facility] can work on finding her another facility. SW will continue to follow. So far there have been no accepting facilities. Still waiting on 2 other facilities to respond. Nori YOUSIF
--- NOTE | 2024-08-07 15:22 | PCM.PN.REN ---
Subjective Subjective Resting in bed. No overnight events. Had dialysis today. Objective Data Objective Data Vital Signs: Vital Signs Temp Pulse Resp BP Pulse Ox O2 Del Method O2 Flow Rate 96.5 F L 64 14 172/84 H 97 Nasal Cannula 2 08/07/24 13:50 08/07/24 13:50 08/07/24 13:50 08/07/24 13:50 08/07/24 10:47 08/07/24 14:00 08/07/24 13:50 FiO2 95 08/06/24 11:09 Oxygen Flow Rate (L/min) 2 Oxygen Delivery Method Nasal Cannula Weight: 42.9 kg Body Mass Index (BMI) 12.8 Intake & Output: Intake and Output for Last 24 Hours 08/05/24 08/06/24 08/07/24 23:59 23:59 23:59 Intake Total 1347.8450 / 1347.8450 1877.66 / 1877.66 1365 / 1365 Output Total 1750 / 1750 1600 / 1600 Balance -402.1550 / -402.1550 1877.66 / 1877.66 -235 / -235 Medical Nutrition Assessment Dietitian: Malnutrition Criteria Met Start: 08/01/24 12:11 Freq: Status: Active Protocol: Document 08/01/24 12:12 (Rec: 08/01/24 12:12 [id number]) Nutrition Malnutrition Evidence of Yes Malnutrition Exists Malnutrition (severe Chronic ): Evidenced By Suboptimal Energy Intake (Severe),Weight Loss (Severe) Intake Problem Increased Nutrient Needs (specify) Etiology protein related to increased demand for healing Signs/Symptoms as evidenced by left lower abdominal wound and coccyx pressure injury Status Active Problem Clinical Problem Chronic Disease or Condition Related Malnutrition Etiology severe related to suboptimal appetite and multile medical problems over the past 6 months including c. diff and AAA Signs/Symptoms as evidenced by 10.8kg (18.7%) unintentional weight loss in ~5 months and PO intakes meeting <75% of estimated nutrition needs for ~5 months; BMI 14 Status Active Problem Recommendation Dietitian Recommend advancing diet as tolerated to Regular when Recommendations/ medically able to optimize oral intakes. Changes Recommend 120mL ensure plus high protein 4x daily with medpass and Pramod BID with meals to provide supplemental energy and help promote wound healing. When medically able recommend via PEG tube, enteral nutrition of Jevity 1.5 at 50mL/hr x24 hours Lab / Micro Data 08/07/24 04:23 08/07/24 04:23 Labs: Laboratory Results - last 24 hr 08/06/24 18:27: POC Glucose 108 H 08/07/24 00:14: POC Glucose 79 08/07/24 03:14: POC Glucose 76 08/07/24 04:23: WBC 11.2 H, RBC 3.36 L, Hgb 9.1 L, Hct 29.4 L, MCV 87.5, MCH 27.1, MCHC 31.0 L, RDW Std Deviation 57.8 H, RDW Coeff of Monika 18.6 H, Plt Count 163, MPV 9.8, Immature Gran % (Auto) 2.100 H, Neut % (Auto) 85.3 H, Lymph % (Auto) 7.3 L, [place] % (Auto) 3.5, Eos % (Auto) 1.3, Baso % (Auto) 0.5, Absolute Neuts (auto) 9.6 H, Absolute Lymphs (auto) 0.82 L, Nucleated RBC % 0, Sodium 133, Potassium 3.7, Chloride 103, Carbon Dioxide 19.3 L, Anion Gap 11, BUN 44 H, Creatinine 1.50 H, Estim Creat Clear Calc 27.32 L, Est GFR (MDRD) Non-Af 39 L, BUN/Creatinine Ratio 29.1 H, Glucose 84, Calcium 7.5 L 08/07/24 05:57: POC Glucose 95 Micro: Microbiology 08/07/24 00:30 Stool C. difficile GDH Antigen & Toxins - Final 08/07/24 00:30 Stool Clostridioides difficile (PCR) - Final Radiography Diagnostic Testing: Radiology Impression Abdomen/Pelvis CT 08/06/24 20:30 IMPRESSION: Gastrostomy tube is noted with tip within the stomach. There is no ellie evidence of contrast extravasation. There is fluid around the gastrostomy tube, outside of the stomach which appears to be increased since prior examination. This may represent leakage of gastric contents versus increasing intra-abdominal collection. The patient may benefit from direct injection of the gastrostomy tube under fluoroscopy. Complex abdominal fluid collections remain, largest collection seen within the right retroperitoneum. This appears overall increased since prior examination. If not contraindicated, may consider placement of intra-abdominal drainage catheters by Interventional Radiology for decompression of these fluid collections. Moderate bilateral pleural effusions with compressive atelectasis at the lung bases. Other findings as above. One or more dose reduction techniques were used (e.g., Automated exposure control, adjustment of the mA and/or kV according to patient size, use of iterative reconstruction technique). Reading Location: [id number] Physical Exam Narrative Alert awake oriented x 3 no obvious distress s1s2 no murmurs lungs clear abdomen soft. PEG tube intact no edema Tunneled HD catheter dressing clean, dry and intact Assessment & Plan Assessment/Plan (1) End stage renal disease: PLAN: - ESRD on hemodialysis Monday at [facility] [place]. Patient dialyzed today and tolerated ~1.6L UF. Serum creatinine is underestimated given patient's low muscle mass/cachexia. Patient is essentially anuric. Cystatin C pending. -Anemia of chronic disease; patient receives DENISE and iron at dialysis. Will monitor hemoglobin trends. - UGI bleed 2/2 ulceration from dislodged PEG tube. Tolerating TF now. On PPI gtt. - cdiff + - discharge plans in progress, hoping to go to ECF closer to her [place] in [facility] [place][Note 2].
--- NOTE | 2024-08-07 17:56 | NURSING ---
entered in error
[2024-08-07] MEDS: Dextrose 10%-Water 250 ML 999 ML IV (18:24)
[2024-08-07 21:32] LABS: Glucose 127 mg/dL (70-99)
[2024-08-07] MEDS: Atorvastatin Calcium 20 MG Tablet PO (22:43)
[2024-08-07] MEDS: amLODIPine 5 MG Tablet PO (22:43)
[2024-08-07] MEDS: Mirtazapine 30 MG Tablet PO (22:44)
[2024-08-07 23:15] LABS: Bedside Glucose 130 mg/dL (74-106)
[2024-08-08] VITALS (8 sets, daily range): BP systolic 159–178; BP diastolic 73–90; PULSE 70–78; RESP 16–18; TEMP 35.8–37; O2SAT 92–96
[2024-08-08 05:59] LABS: Absolute Lymphocyte Count 0.67 X10^3/uL (0.83-4.51); Absolute Neutrophil Count 7.2 X10^3/uL (2.0-7.7); Basophil# 0.05 X10^3/uL; Basophil% 0.6 % (0-1); Eosinophils% 1.2 % (0-5); Hematocrit 27.8 % (37-47); Hemoglobin 8.6 g/dL (12.0-15.0); Lymphocyte # 0.67 X10^3/ul (0.83-4.51); Lymphocyte % 7.9 % (19-41); Mean Corp Hgb Conc 30.9 g/dL (32-36); Mean Corpuscular Hgb 27.1 pg (27.0-32.0); Mean Corpuscular Volume 87.7 fL (81-99); Mean Platelet Vol. 9.5 fl (6.2-12.0); Monocyte# 0.32 X10^3/uL; Monocyte% 3.8 % (0-10); NRBC Flagged by Analyzer 0 % (0-5); Neutrophil # 7.24 X10^3/uL (2.7-7.7); Neutrophil % 85.1 % (47-70); Platelet Count 147 K/mm3 (150-450); RBC Distribution Width CV 18.6 % (11.6-14.6); RBC Distribution Width SD 59.1 fl (35.1-43.9); Red Blood Count 3.17 M/mm3 (4.2-5.4); White Blood Count 8.5 K/mm3 (4.4-11.0)
[2024-08-08] MEDS: Levothyroxine 100 MCG Tablet 200 MCG PO (06:08)
[2024-08-08 06:33] LABS: Anion Gap 9 (5-15); BUN 32 mg/dL (4-19); BUN/Creat Ratio 24.5 RATIO (10-20); Calcium,Total 7.7 mg/dL (7.6-11.0); Carbon Dioxide 22.6 mmol/L (21.0-32.0); Chloride 104 mmol/L (98-108); Creatinine, Serum 1.31 mg/dL (0.70-1.20); EST Glomerular Filtration Rate 46 (>60); Estimated Creatinine Clearance 30.16 ml/min (50-250); Glucose 89 mg/dL (70-99); Potassium 3.8 mmol/L (3.3-5.1); Sodium Level 135 mmol/L (133-145)
--- NOTE | 2024-08-08 07:44 | PN.HOSP_ITS ---
Reason for Visit Reason for Visit: Diagnoses Acute posthemorrhagic anemia (07/31/24) Hematemesis (07/31/24) Gastrointestinal hemorrhage, unspecified (07/31/24) End stage renal disease (07/31/24) Diarrhea, unspecified (07/31/24) Abnormal findings on diagnostic imaging of other abdominal regions, including retroperitoneum (07/31/24) Subjective Subjective No abdominal pain. tolerating clears. Objective Data Objective Data Vital Signs: Vital Signs Temp Pulse Resp BP Pulse Ox O2 Del Method O2 Flow Rate 35.8 C L 74 17 159/73 H 95 Nasal Cannula 2 08/08/24 04:30 08/08/24 04:30 08/08/24 04:30 08/08/24 04:30 08/08/24 04:30 08/08/24 04:30 08/08/24 04:30 FiO2 95 08/06/24 11:09 Oxygen Flow Rate (L/min) 2 Oxygen Delivery Method Nasal Cannula Weight: 42.9 kg Body Mass Index (BMI) 12.8 Intake & Output: Intake and Output for Last 24 Hours 08/06/24 08/07/24 08/08/24 23:59 23:59 23:59 Intake Total 1877.66 / 1877.66 1880.17 / 1880.17 Output Total 1600 / 1600 Balance 1877.66 / 1877.66 280.17 / 280.17 Medical Nutrition Assessment Dietitian: Malnutrition Criteria Met Start: 08/01/24 12:11 Freq: Status: Active Protocol: Document 08/01/24 12:12 LO (Rec: 08/01/24 12:12 LO [id number]) Nutrition Malnutrition Evidence of Yes Malnutrition Exists Malnutrition (severe Chronic ): Evidenced By Suboptimal Energy Intake (Severe),Weight Loss (Severe) Intake Problem Increased Nutrient Needs (specify) Etiology protein related to increased demand for healing Signs/Symptoms as evidenced by left lower abdominal wound and coccyx pressure injury Status Active Problem Clinical Problem Chronic Disease or Condition Related Malnutrition Etiology severe related to suboptimal appetite and multile medical problems over the past 6 months including c. diff and AAA Signs/Symptoms as evidenced by 10.8kg (18.7%) unintentional weight loss in ~5 months and PO intakes meeting <75% of estimated nutrition needs for ~5 months; BMI 14 Status Active Problem Recommendation Dietitian Recommend advancing diet as tolerated to Regular when Recommendations/ medically able to optimize oral intakes. Changes Recommend 120mL ensure plus high protein 4x daily with medpass and Pramod BID with meals to provide supplemental energy and help promote wound healing. When medically able recommend via PEG tube, enteral nutrition of Jevity 1.5 at 50mL/hr x24 hours Lab / Micro Data 08/08/24 04:47 08/08/24 04:47 Labs: Laboratory Results - last 24 hr 08/07/24 20:45: Glucose 127 H 08/07/24 22:40: POC Glucose 130 H 08/08/24 04:47: WBC 8.5, RBC 3.17 L, Hgb 8.6 L, Hct 27.8 L, MCV 87.7, MCH 27.1, MCHC 30.9 L, RDW Std Deviation 59.1 H, RDW Coeff of Monika 18.6 H, Plt Count 147 L, MPV 9.5, Immature Gran % (Auto) 1.400 H, Neut % (Auto) 85.1 H, Lymph % (Auto) 7.9 L, [place] % (Auto) 3.8, Eos % (Auto) 1.2, Baso % (Auto) 0.6, Absolute Neuts (auto) 7.2, Absolute Lymphs (auto) 0.67 L, Nucleated RBC % 0, Sodium 135, Potassium 3.8, Chloride 104, Carbon Dioxide 22.6, Anion Gap 9, BUN 32 H, C reatinine 1.31 H, Estim Creat Clear Calc 30.16 L, Est GFR (MDRD) Non-Af 46 L, B UN/Creatinine Ratio 24.5 H, Glucose 89, Calcium 7.7 Micro: Microbiology 08/07/24 00:30 Stool C. difficile GDH Antigen & Toxins - Final 08/07/24 00:30 Stool Clostridioides difficile (PCR) - Final Physical Exam Const alert and no apparent distress HEENT head/scalp atraumatic and moist oral mucous membranes Resp normal respiratory effort, no retractions, no use of accessory muscles and clear to auscultation bilaterally Cardio regular rate, regular rhythm, S1 normal heart sound and S2 normal heart sound GI normal to inspection, nondistended, normoactive bowel sounds, soft to palpation, non-tender and non-distended Extremity normal to inspection and full ROM Neuro Sensorium / Orientation: awake and alert Assessment & Plan Assessment/Plan (1) GI bleed: PLAN: 2/2 ulceration from dislodged PEG tube. change to pantoprazole BID IV. (2) ABLA (acute blood loss anemia): PLAN: 2/2 GI bleed. Improved after transfusion. Monitor. Currently stable. (3) Abnormal CT of the abdomen: PLAN: CT showes gastrostomy tube noted within the stomach. No ellie evidence of contrast extravasation. Fluid around the gastrostomy tube, outside stomach which appears to be increase in his prior examination. This may represent leakage of gastric contents versus increasing intra-abdominal collection. Complex abdominal fluid collection remain largest collection seen when in the right retroperitoneum. Appears overall increased since prior examination. 08/07: I discussed with Dr. Gallegos who recommended percutaneous drain. Spoke with Dr. Haas who states that there is a lot of bowel that would make percutaneous drain much more complex and risky. He advised against percutaneous drain but it I recommend follow-up CAT scan about a week's time to see if there is been any increased fluid collection that may be more amenable to percutaneous drain. (4) Diarrhea: PLAN: Positive for C. difficile antigen but negative for toxin so not active C. difficile. Likely due to the tube feeds and poor nutrition overall. Will add loperamide to see if we can slow her down. Seems to have slowed today. Pt requesting to have the FMT kept in place for now. (5) Hypoglycemia: PLAN: Glucose dropped to 34 while on tube feeds. Order 1 amp D50. Per nursing, finger sticks do not correlate with the labs. So, it would seem the finger- sticks are inaccurate, especially since she is asymptomatic. Continue to monitor. Pt is not on insulin nor any hypoglycemic agents. PLAN: Plan Severe protein-calorie malnutrition: * PEG placed on 07/24. Repeat EGD on showed dislodged gastrostomy tube with the bumper buried in the cardia with large defect. Defect repaired. * DW Dr. Gallegos 08/05, ok to use PEG tube, but with continuous infusion rather than bolus feedings. Will continue at 20cc/h for now. Reevaluated in AM. No need for PICC/TPN at this time. * 08/06: advanced tube feeds to 30cc/h. * 08/07: Continue the tube feeds at current rate. Also continue with clear liquid diet for now given the CT findings from the . * 08/08: advance diet to fulls. Increase tube feed rate to 50cc/h Chronic Open abdominal wall wound: * Ongoing since February and patient did have a wound VAC at that time. Will consult wound care for input. Is complicated by her severe malnutrition. End stage renal disease: * Secondary to ATN from hemorrhagic shock and never had recovery. Patient on dialysis every Monday. Nephrology following. Chronic conditions * Factor V Leiden deficiency hold off on her aspirin for now. * Hypertension: Continue with amlodipine and metoprolol titrate. * Hypothyroidism: Continue levothyroxine * History of C. difficile: Does not appear to have any active symptoms at this time. * Depression: Continue sertraline. 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 Expectant management at this time VTE prophylaxis with SCDs for now Charges/Coding Visit Charges Inpatient E&M: 19506 Subs Hosp L2
[2024-08-08] MEDS: Pantoprazole Sodium 40 MG in 0.9% Normal Saline (100mL MB+) 100 ML 330 MG IV ×2 (09:39→22:18)
[2024-08-08] MEDS: Metoprolol Tartrate 25 MG Tablet PO ×2 (09:41→22:24)
[2024-08-08] MEDS: Ascorbic Acid 500 MG Tablet PO (09:41)
[2024-08-08] MEDS: Cholecalciferol (Vit D3) 125 MCG CAPSULE (5,000 UNITS) PO (09:41)
[2024-08-08] MEDS: Lactobacillis Acidophilus 1 CAP PO (09:41)
[2024-08-08] MEDS: Thiamine Hydrochloride 100 MG Tablet PO ×2 (09:41→22:24)
[2024-08-08] MEDS: Menthol/Lanolin/Calamine/Znox 113 GM Tube 1 APPLIC TOPICAL ×4 (09:41→22:19)
[2024-08-08] MEDS: Folic Acid/Vitamin B Comp W-C 1 Capsule 1 CAP PO (09:41)
[2024-08-08] MEDS: Sertraline 50 MG Tablet 25 MG PO (09:42)
[2024-08-08] MEDS: Piperacil/Tazobactam 3.375 GM in 0.9% Normal Saline (50mL MB+) 50 ML IV ×2 (09:47→22:50)
[2024-08-08 12:04] LABS: Bedside Glucose 55 mg/dL (74-106)
[2024-08-08] MEDS: Dronabinol 2.5 MG Capsule PO ×2 (12:42→16:41)
[2024-08-08] MEDS: Dextrose 10%-Water 250 ML IV (12:48)
[2024-08-08 13:09] LABS: Bedside Glucose 53 mg/dL (74-106)
[2024-08-08] MEDS: Acetaminophen 325 MG Tablet 650 MG PO (13:40)
[2024-08-08] MEDS: cycloBENZAPRine HCl 5 MG TABLET PO (13:40)
--- NOTE | 2024-08-08 14:01 | CASEMGMT ---
YVONNE called patient's sister Janette. YVONNE explained to Janette that [facility] has declined as they are full. [facility] is still reviewing the referral. YVONNE explained that there have been 8 referrals sent out total and all of them have declined patient. YVONNE explained patient is getting closer to being ready for discharge and she will need insurance authorization in order to go to a facility. YVONNE explained this authorization cannot be obtained until there is an accepting facility. YVONNE explained patient may have to return to [facility] and their child welfare social worker can assist them in finding a new facility for patient. Janette said that they do have a couple of other choices. Janette said she is at work and is not supposed to be on the phone. Janette will have a break at 4p and can call YVONNE then with the other facilities. YVONNE told Janette if YVONNE does not answer she can leave a message. YVONNE went to patient's room to tell her above. However, patient was sleeping. YVONNE will try back again. Per physician as long as patient stays medically stable she could be ready for discharge tomorrow or the weekend. YVONNE will ask [facility] to please start the pre-cert. That way if patient is medically ready patient could be discharged back to [facility]. [facility] was one of patient's choices and they said no as they were full. YVONNE sent them a message in [facility] asking if they could put patient on their wait list. [facility] responded they could put patient on their wait list, but there are 53 people on it. YVONNE thanked them and will notify patient and her sister. Nori Valentine SUPERVISOR METER REPAIR [employer] BENJA
--- NOTE | 2024-08-08 14:35 | CASEMGMT ---
Discharge Planning Updates sent to [facility] with note to submit for precert. Joellen Billy DC Planning Asst.
--- NOTE | 2024-08-08 14:35 | PCM.PN.REN ---
Subjective Subjective Resting in bed, no overnight events. Objective Data Objective Data Vital Signs: Vital Signs Temp Pulse Resp BP Pulse Ox O2 Del Method O2 Flow Rate 97.4 F L 78 18 178/78 H 92 Nasal Cannula 3 08/08/24 09:35 08/08/24 09:41 08/08/24 09:35 08/08/24 09:35 08/08/24 09:35 08/08/24 09:35 08/08/24 10:35 FiO2 95 08/06/24 11:09 Oxygen Flow Rate (L/min) 3 Oxygen Delivery Method Nasal Cannula Weight: 42.9 kg Body Mass Index (BMI) 12.8 Intake & Output: Intake and Output for Last 24 Hours 08/06/24 08/07/24 08/08/24 23:59 23:59 23:59 Intake Total 1877.66 / 1877.66 1880.17 / 1880.17 1208.0 / 1208.0 Output Total 1600 / 1600 Balance 1877.66 / 1877.66 280.17 / 280.17 1208.0 / 1208.0 Medical Nutrition Assessment Dietitian: Malnutrition Criteria Met Start: 08/01/24 12:11 Freq: Status: Active Protocol: Document 08/01/24 12:12 LO (Rec: 08/01/24 12:12 LO [id number]) Nutrition Malnutrition Evidence of Yes Malnutrition Exists Malnutrition (severe Chronic ): Evidenced By Suboptimal Energy Intake (Severe),Weight Loss (Severe) Intake Problem Increased Nutrient Needs (specify) Etiology protein related to increased demand for healing Signs/Symptoms as evidenced by left lower abdominal wound and coccyx pressure injury Status Active Problem Clinical Problem Chronic Disease or Condition Related Malnutrition Etiology severe related to suboptimal appetite and multile medical problems over the past 6 months including c. diff and AAA Signs/Symptoms as evidenced by 10.8kg (18.7%) unintentional weight loss in ~5 months and PO intakes meeting <75% of estimated nutrition needs for ~5 months; BMI 14 Status Active Problem Recommendation Dietitian Recommend advancing diet as tolerated to Regular when Recommendations/ medically able to optimize oral intakes. Changes Recommend 120mL ensure plus high protein 4x daily with medpass and Pramod BID with meals to provide supplemental energy and help promote wound healing. When medically able recommend via PEG tube, enteral nutrition of Jevity 1.5 at 50mL/hr x24 hours Lab / Micro Data 08/08/24 04:47 08/08/24 04:47 Labs: Laboratory Results - last 24 hr 08/07/24 20:45: Glucose 127 H 08/07/24 22:40: POC Glucose 130 H 08/08/24 04:47: WBC 8.5, RBC 3.17 L, Hgb 8.6 L, Hct 27.8 L, MCV 87.7, MCH 27.1, MCHC 30.9 L, RDW Std Deviation 59.1 H, RDW Coeff of Monika 18.6 H, Plt Count 147 L, MPV 9.5, Immature Gran % (Auto) 1.400 H, Neut % (Auto) 85.1 H, Lymph % (Auto) 7.9 L, [place] % (Auto) 3.8, Eos % (Auto) 1.2, Baso % (Auto) 0.6, Absolute Neuts (auto) 7.2, Absolute Lymphs (auto) 0.67 L, Nucleated RBC % 0, Sodium 135, Potassium 3.8, Chloride 104, Carbon Dioxide 22.6, Anion Gap 9, BUN 32 H, Creatinine 1.31 H, Estim Creat Clear Calc 30.16 L, Est GFR (MDRD) Non-Af 46 L, BUN/Creatinine Ratio 24.5 H, Glucose 89, Calcium 7.7 08/08/24 11:32: POC Glucose 55 L 08/08/24 12:44: POC Glucose 53 L Micro: Microbiology 08/07/24 00:30 Stool C. difficile GDH Antigen & Toxins - Final 08/07/24 00:30 Stool Clostridioides difficile (PCR) - Final Physical Exam Narrative Alert awake oriented x 3 no obvious distress s1s2 no murmurs lungs clear abdomen soft. PEG tube intact no edema to b/l legs but does have some pedal edema Tunneled HD catheter dressing clean, dry and intact Assessment & Plan Assessment/Plan (1) End stage renal disease: PLAN: - ESRD on hemodialysis Monday at [facility] [place]. Patient dialyzed yesterday with ~1.6L UF. No acute indication for [facility] today, next HD tomorrow. Serum creatinine is underestimated given patient's low muscle mass/cachexia. Patient is essentially anuric. Cystatin C pending. - Anemia of chronic disease; patient receives DENISE and iron at dialysis. Will monitor hemoglobin trends. - UGI bleed 2/2 ulceration from dislodged PEG tube. Tolerating TF now. On PPI gtt. - discharge plans in progress, hoping to go to ECF closer to her home in [facility], if unable to go to ECF closer to home then patient will return back to [facility] with transportation to/from [facility].
[2024-08-08 14:57] LABS: Bedside Glucose 136 mg/dL (74-106)
[2024-08-08] MEDS: Morphine 2 MG/ML Syringe IV ×2 (14:57→22:15)
--- NOTE | 2024-08-08 15:04 | CASEMGMT ---
SW was able to talk with patient regarding likelihood she will have to return to [facility] and they can assist her in finding another facility. Patient said they could also look into nursing at home. SW asked patient if she would have someone there 19/12. Patient said her would be there, but not all of the time. SW reiterated to patient it would probably be best if she returned to [facility] while they help her find another facility. SW let patient know SW did talk with Janette and let her know this information also. Nori Valentine OIL PIPE INSPECTOR HELPER BENJA
--- NOTE | 2024-08-08 15:31 | CASEMGMT ---
YVONNE received a call from patient's sister Janette. Janette said their next two choices are [facility] and [facility]. YVONNE reiterated to Janette that we can send referrals to these two facilities. However, if they say no and patient is ready for discharge she will have to return to [facility] and they can help her find alternate placement. YVONNE told Janette SW did talk with patient about this and she seemed to understand. Janette thanked YVONNE for all of the efforts put into helping them. YVONNE asked Joellen to please send referrals to both of the above facilities. Nori Valentine REPAIRER [employer]ING [employer]QU[employer]MENT BENJA
--- NOTE | 2024-08-08 15:33 | CASEMGMT ---
Addendum entered by Joellen Billy 08/09/24 15:44: [facility] has declined. SW updated. Joellen Billy DC Planning Asst. Addendum entered by Joellen Billy 08/09/24 10:57: [facility] has declined. [facility] is still reviewing. SW updated. Joellen Billy DC Planning Asst. Original Note: Discharge Planning Referral sent to [facility] and [facility]. Joellen Billy DC Planning Asst.
[2024-08-08] MEDS: Dextrose 5%/0.9% NaCl 1,000 ML 75 ML IV (16:41)
[2024-08-08 17:17] LABS: Bedside Glucose 84 mg/dL (74-106)
--- NOTE | 2024-08-08 18:15 | PN_ITS ---
Progress Note Patient laying in the bed without any complaints. She denies any abdominal pain. She has been getting tube feedings. Physical Exam Narrative Alert awake oriented x 3 no obvious distress s1s2 no murmurs lungs clear abdomen soft. PEG tube intact no edema to b/l legs but does have some pedal edema Assessment & Plan Assessment/Plan (1) Acute upper gastrointestinal bleeding: (2) Coffee ground emesis: PLAN: Plan #Acute on chronic anemia due to probable UGI bleed * Patient was admitted with a complaint of coffee-ground emesis. A PEG tube was also suctioned which showed coffee-ground material. * CT of the abdomen and pelvis done on admission concerning for esophagitis with gastritis. * GI on board. She had EGD t which showed normal esophagus and dislodged gastrostomy tube present characterized by ulceration which was treated with argon plasma coagulation and a nonbleeding large defect due to buried PEG tube bumper found in the stomach. Clips were placed. No gross lesions in the duodenal bulb. * Hb today seems to be holding steady. * And IV pantoprazole. * Due to the fact that she is having a lot of excoriation around the PEG tube I will order a CT scan abdomen pelvis with oral and IV contrast 08/08/2024-severe malnutrition. Patient has been afebrile. Radiology does not recommend percutaneous drainage at this time. Recommend to to repeat imaging in approximately 1 week unless clinical status changes. Visit Charges Inpatient E&M: 62600 Subs Hosp L3
--- NOTE | 2024-08-08 18:30 | CT_ITS ---
PROCEDURE: ABDOMEN/PELVIS WITH CONTRAST REASON FOR EXAM: ABDOMINAL PAIN. TECHNIQUE: Abdomen and pelvis CT with intravenous contrast. Oral contrast was also used. IV CONTRAST: COMPARISON: 08/06/2024 FINDINGS: Lung bases: No change in moderate bilateral pleural effusions with bibasilar atelectasis. Liver: Unremarkable. Gallbladder: Unremarkable. Spleen: Unremarkable. Pancreas: Unremarkable. Adrenals: Unremarkable. Kidneys: Status post right nephrectomy with a no change in the multiloculated fluid collection in the right renal fossa. Moderate atrophy of the left kidney. Bladder: Unremarkable. Reproductive Organs: Unremarkable. Bowel: Unremarkable. Percutaneous gastrostomy tube. Rectal tube. Appendix: Normal. Lymph nodes: No suspicious lymph node enlargement. Vasculature: Aorto bi-iliac bypass graft with a stent in the left limb which appears patent Peritoneum / Retroperitoneum: Edema of the subcutaneous fat in retroperitoneal fat consistent with anasarca. Small amount of ascites. Bones: Unremarkable. CT/Abdomen/Pelvis WITH Contrast IMPRESSION: No change from 08/06/2024. One or more dose reduction techniques were used (e.g., Automated exposure contr ol, adjustment of the mA and/or kV according to patient size, use of iterative reconstruction technique). Reading Location: [id number]
[2024-08-08] MEDS: 0.9% Saline Lock 10 ML Syringe IV (22:15)
[2024-08-08] MEDS: Atorvastatin Calcium 20 MG Tablet PO (22:24)
[2024-08-08] MEDS: Mirtazapine 30 MG Tablet PO (22:24)
[2024-08-08] MEDS: amLODIPine 5 MG Tablet PO (22:24)
[2024-08-09] VITALS (19 sets, daily range): BP systolic 72–222; BP diastolic 55–83; PULSE 66–79; RESP 12–18; TEMP 36.2–37.1; O2SAT 90–100; BMI 12.8; BMI 12.5
[2024-08-09] MEDS: hydrALAZINE 20 MG/ML Vial 10 MG IV (04:47)
[2024-08-09] MEDS: 0.9% Saline Lock 10 ML Syringe IV ×2 (04:48→11:53)
[2024-08-09] MEDS: Levothyroxine 100 MCG Tablet 200 MCG PO (05:57)
[2024-08-09 07:13] LABS: Bedside Glucose 77 mg/dL (74-106)
[2024-08-09 07:36] LABS: Absolute Lymphocyte Count 0.38 X10^3/uL (0.83-4.51); Absolute Neutrophil Count 5.4 X10^3/uL (2.0-7.7); Basophil# 0.05 X10^3/uL; Basophil% 0.8 % (0-1); Eosinophil# 0.12 X10^3/uL; Eosinophils% 1.9 % (0-5); Hematocrit 27.4 % (37-47); Hemoglobin 8.3 g/dL (12.0-15.0); Lymphocyte # 0.38 X10^3/ul (0.83-4.51); Mean Corp Hgb Conc 30.3 g/dL (32-36); Mean Corpuscular Hgb 26.7 pg (27.0-32.0); Mean Corpuscular Volume 88.1 fL (81-99); Mean Platelet Vol. 10.3 fl (6.2-12.0); Monocyte# 0.32 X10^3/uL; NRBC Flagged by Analyzer 0 % (0-5); Neutrophil # 5.38 X10^3/uL (2.7-7.7); Neutrophil % 84.3 % (47-70); POSITIVE DIFFERENTIAL YES; Platelet Count 111 K/mm3 (150-450); RBC Distribution Width CV 18.8 % (11.6-14.6); RBC Distribution Width SD 60.7 fl (35.1-43.9); Red Blood Count 3.11 M/mm3 (4.2-5.4); White Blood Count 6.4 K/mm3 (4.4-11.0)
--- NOTE | 2024-08-09 08:05 | PN.HOSP_ITS ---
Reason for Visit Reason for Visit: Diagnoses Acute posthemorrhagic anemia (07/31/24) Hypoglycemia, unspecified (07/31/24) Hematemesis (07/31/24) Gastrointestinal hemorrhage, unspecified (07/31/24) End stage renal disease (07/31/24) Diarrhea, unspecified (07/31/24) Abnormal findings on diagnostic imaging of other abdominal regions, including retroperitoneum (07/31/24) Subjective Subjective Still with abdominal pain. Objective Data Objective Data Vital Signs: Vital Signs Temp Pulse Resp BP Pulse Ox O2 Del Method O2 Flow Rate 36.5 C L 68 14 169/75 H 92 Nasal Cannula 7 08/09/24 05:50 08/09/24 05:50 08/09/24 05:50 08/09/24 05:50 08/09/24 05:50 08/09/24 05:50 08/09/24 05:50 FiO2 95 08/06/24 11:09 Oxygen Flow Rate (L/min) 7 Oxygen Delivery Method Nasal Cannula Weight: 42.9 kg Body Mass Index (BMI) 12.8 Intake & Output: Intake and Output for Last 24 Hours 08/07/24 08/08/24 08/09/24 23:59 23:59 23:59 Intake Total 1880.17 / 1880.17 1968.0 / 1968.0 921.25 / 921.25 Output Total 1600 / 1600 0 / 0 350 / 350 Balance 280.17 / 280.17 1968.0 / 1968.0 571.25 / 571.25 Medical Nutrition Assessment Dietitian: Malnutrition Criteria Met Start: 08/01/24 12:11 Freq: Status: Active Protocol: Document 08/01/24 12:12 LO (Rec: 08/01/24 12:12 [id number]) Nutrition Malnutrition Evidence of Yes Malnutrition Exists Malnutrition (severe Chronic ): Evidenced By Suboptimal Energy Intake (Severe),Weight Loss (Severe) Intake Problem Increased Nutrient Needs (specify) Etiology protein related to increased demand for healing Signs/Symptoms as evidenced by left lower abdominal wound and coccyx pressure injury Status Active Problem Clinical Problem Chronic Disease or Condition Related Malnutrition Etiology severe related to suboptimal appetite and multile medical problems over the past 6 months including c. diff and AAA Signs/Symptoms as evidenced by 10.8kg (18.7%) unintentional weight loss in ~5 months and PO intakes meeting <75% of estimated nutrition needs for ~5 months; BMI 14 Status Active Problem Recommendation Dietitian Recommend advancing diet as tolerated to Regular when Recommendations/ medically able to optimize oral intakes. Changes Recommend 120mL ensure plus high protein 4x daily with medpass and Pramod BID with meals to provide supplemental energy and help promote wound healing. When medically able recommend via PEG tube, enteral nutrition of Jevity 1.5 at 50mL/hr x24 hours Lab / Micro Data 08/09/24 07:11 08/09/24 07:11 Labs: Laboratory Results - last 24 hr 08/08/24 11:32: POC Glucose 55 L 08/08/24 12:44: POC Glucose 53 L 08/08/24 14:27: POC Glucose 136 H 08/08/24 16:53: POC Glucose 84 08/09/24 06:54: POC Glucose 77 08/09/24 07:11: WBC 6.4, RBC 3.11 L, Hgb 8.3 L, Hct 27.4 L, MCV 88.1, MCH 26.7 L , MCHC 30.3 L, RDW Std Deviation 60.7 H, RDW Coeff of Monika 18.8 H, Plt Count 111 L, MPV 10.3, Immature Gran % (Auto) 2.000 H, Neut % (Auto) 84.3 H, Lymph % (Auto) 6.0 L, [place] % (Auto) 5.0, Eos % (Auto) 1.9, Baso % (Auto) 0.8, Absolute Neuts (auto) 5.4, Absolute Lymphs (auto) 0.38 L, Nucleated RBC % 0 Micro: Microbiology 08/07/24 00:30 Stool C. difficile GDH Antigen & Toxins - Final 08/07/24 00:30 Stool Clostridioides difficile (PCR) - Final Radiography Diagnostic Testing: Radiology Impression Abdomen/Pelvis CT 08/08/24 18:30 IMPRESSION: No change from 08/06/2024. One or more dose reduction techniques were used (e.g., Automated exposure control, adjustment of the mA and/or kV according to patient size, use of iterative reconstruction technique). Reading Location: [id number] Physical Exam Const alert and no apparent distress HEENT head/scalp atraumatic and moist oral mucous membranes Resp normal respiratory effort, no retractions, no use of accessory muscles and clear to auscultation bilaterally Cardio regular rate, regular rhythm, S1 normal heart sound and S2 normal heart sound GI normal to inspection, nondistended, normoactive bowel sounds, soft to palpation, non-tender and non-distended Extremity normal to inspection and full ROM Neuro Sensorium / Orientation: awake and alert Assessment & Plan Assessment/Plan (1) GI bleed: PLAN: 2/2 ulceration from dislodged PEG tube. change to pantoprazole BID IV. (2) ABLA (acute blood loss anemia): PLAN: 2/2 GI bleed. Improved after transfusion. Monitor. Currently stable. (3) Abnormal CT of the abdomen: PLAN: CT showes gastrostomy tube noted within the stomach. No ellie evidence of contrast extravasation. Fluid around the gastrostomy tube, outside stomach which appears to be increase in his prior examination. This may represent leakage of gastric contents versus increasing intra-abdominal collection. Complex abdominal fluid collection remain largest collection seen when in the right retroperitoneum. Appears overall increased since prior examination. 08/07: I discussed with Dr. Gallegos who recommended percutaneous drain. Spoke with Dr. Haas who states that there is a lot of bowel that would make percutaneous drain much more complex and risky. He advised against percutaneous drain but it I recommend follow-up CAT scan about a week's time to see if there is been any increased fluid collection that may be more amenable to percutaneous drain. 08/08: worsening abdominal pain during the day. CT showed no acute changes. 08/09: resume Jevity 1.5 at 30cc/h, resume full liquid diet. (4) Diarrhea: PLAN: Positive for C. difficile antigen but negative for toxin so not active C. difficile. Likely due to the tube feeds and poor nutrition overall. Will add loperamide to see if we can slow her down. Seems to have slowed today. Pt requesting to have the FMT kept in place for now. (5) Hypoglycemia: PLAN: Glucose dropped to 34 while on tube feeds. Order 1 amp D50. Per nursing, finger sticks do not correlate with the labs. So, it would seem the finger- sticks are inaccurate, especially since she is asymptomatic. Continue to monitor. Pt is not on insulin nor any hypoglycemic agents. On D5NS. PLAN: Plan Severe protein-calorie malnutrition: * PEG placed on 07/24. Repeat EGD on showed dislodged gastrostomy tube with the bumper buried in the cardia with large defect. Defect repaired. * DW Dr. Gallegos 08/05, ok to use PEG tube, but with continuous infusion rather than bolus feedings. Will continue at 20cc/h for now. Reevaluated in AM. No need for PICC/TPN at this time. * 08/06: advanced tube feeds to 30cc/h. * 08/07: Continue the tube feeds at current rate. Also continue with clear liquid diet for now given the CT findings from the . * 08/08: advance diet to fulls. Increase tube feed rate to 50cc/h Chronic Open abdominal wall wound: * Ongoing since February and patient did have a wound VAC at that time. Will consult wound care for input. Is complicated by her severe malnutrition. End stage renal disease: * Secondary to ATN from hemorrhagic shock and never had recovery. Patient on dialysis every Monday. Nephrology following. Chronic conditions * Factor V Leiden deficiency hold off on her aspirin for now. * Hypertension: Continue with amlodipine and metoprolol titrate. * Hypothyroidism: Continue levothyroxine * History of C. difficile: Does not appear to have any active symptoms at this time. * Depression: Continue sertraline. 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 Expectant management at this time VTE prophylaxis with SCDs for now Charges/Coding Visit Charges Inpatient E&M: 38659 Subs Hosp L2
[2024-08-09 08:25] LABS: Anion Gap 9 (5-15); BUN 30 mg/dL (4-19); BUN/Creat Ratio 20.7 RATIO (10-20); Calcium,Total 7.4 mg/dL (7.6-11.0); Carbon Dioxide 20.7 mmol/L (21.0-32.0); Chloride 105 mmol/L (98-108); Creatinine, Serum 1.43 mg/dL (0.70-1.20); EST Glomerular Filtration Rate 41 (>60); Estimated Creatinine Clearance 27.63 ml/min (50-250); Glucose 83 mg/dL (70-99); Potassium 3.9 mmol/L (3.3-5.1); Sodium Level 134 mmol/L (133-145)
[2024-08-09] MEDS: PureFlow B 2K Dialysis Soln 1 BAG 6 BAG PF (09:02)
[2024-08-09] MEDS: 0.9% Normal Saline 1,000 ML IV.SOLN. 1000 ML OPERA.SITE (09:02)
[2024-08-09] MEDS: Heparin 10,000 UNITS/10 ML Vial 3000 UNITS IV (09:10)
[2024-08-09] MEDS: Dextrose 5%/0.9% NaCl 1,000 ML 35 ML IV (10:16)
--- NOTE | 2024-08-09 10:16 | WOUNDNOTE ---
PEG tube dressing with a moderate amount of light yellow drainage. site cleansed with soap and water. pat dry. applied a new dry split gauze dressing. pt tolerated well.
[2024-08-09] MEDS: Jevity 1.5 1,000 ML 30 ML GT (10:17)
--- NOTE | 2024-08-09 11:26 | CASEMGMT ---
CC asked to call PCU should precert be rec'd over the wknd. [employer] and transport form placed on chart. Joellen Billy DC Planning Asst.
[2024-08-09] MEDS: 0.9% Normal Saline (100mL Bag) 100 ML 15 ML IV (11:50)
[2024-08-09] MEDS: Piperacil/Tazobactam 3.375 GM in 0.9% Normal Saline (50mL MB+) 50 ML IV ×2 (11:54→22:53)
[2024-08-09] MEDS: Sertraline 50 MG Tablet 25 MG PO (12:00)
[2024-08-09] MEDS: Folic Acid/Vitamin B Comp W-C 1 Capsule 1 CAP PO (12:00)
[2024-08-09] MEDS: Cholecalciferol (Vit D3) 125 MCG CAPSULE (5,000 UNITS) PO (12:00)
[2024-08-09] MEDS: Acetaminophen 325 MG Tablet 650 MG PO ×2 (12:00→21:31)
[2024-08-09] MEDS: Lactobacillis Acidophilus 1 CAP PO (12:01)
[2024-08-09] MEDS: Ascorbic Acid 500 MG Tablet PO (12:01)
[2024-08-09] MEDS: Metoprolol Tartrate 25 MG Tablet PO ×2 (12:07→21:31)
[2024-08-09] MEDS: Pantoprazole Sodium 40 MG in 0.9% Normal Saline (100mL MB+) 100 ML 330 MG IV ×2 (12:28→22:00)
[2024-08-09] MEDS: Dronabinol 2.5 MG Capsule PO ×2 (12:34→18:07)
[2024-08-09 14:17] LABS: Glucose 100 mg/dL (70-99)
--- NOTE | 2024-08-09 15:04 | CASEMGMT ---
[facility] said patient's insurance is denying skilled level of care. They are offering a peer to peer. Physician stated he will do a peer to peer. SW called Alexi to schedule peer to peer. SW was on hold for 15 minutes then left a voice mail requesting a return call. It is highly unlikely insurance does same day peer to peers. Dr Galvin will not be here on Monday. YVONNE will also communicate to patient and her sister that [facility] said they are out of network, patient would have to private pay and private pay for transportation. Also, they would not officially accept patient until dialysis was set up. [facility] has declined patient also. Nori Valentine [employer]
[2024-08-09] MEDS: Menthol/Lanolin/Calamine/Znox 113 GM Tube 1 APPLIC TOPICAL ×3 (15:43→21:32)
--- NOTE | 2024-08-09 16:14 | CASEMGMT ---
Discharge Planning Pts sister/HC POA updated that both [facility] and [facility] have declined referral, as well as [facility] has denied skilled stay. Janette explained that they knew skilled services could possibly be denied and that pt would either return to PSYCHIATRIC or another snf private pay. Joellen Billy DC Planning Asst.
--- NOTE | 2024-08-09 16:18 | PCM.PN.REN ---
Subjective Subjective no new events Objective Data Objective Data Vital Signs: Vital Signs Temp Pulse Resp BP Pulse Ox O2 Del Method O2 Flow Rate 98.8 F 66 16 145/75 H 100 Nasal Cannula 3 08/09/24 15:18 08/09/24 15:18 08/09/24 15:18 08/09/24 15:18 08/09/24 15:18 08/09/24 15:23 08/09/24 15:18 FiO2 95 08/06/24 11:09 Oxygen Flow Rate (L/min) 3 Oxygen Delivery Method Nasal Cannula Weight: 42 kg Body Mass Index (BMI) 12.5 Intake & Output: Intake and Output for Last 24 Hours 08/07/24 08/08/24 08/09/24 23:59 23:59 23:59 Intake Total 1880.17 / 1880.17 1968.0 / 1968.0 1871.00 / 1871.00 Output Total 1600 / 1600 0 / 0 2400 / 2400 Balance 280.17 / 280.17 1968.0 / 1968.0 -529.00 / -529.00 Medical Nutrition Assessment Dietitian: Malnutrition Criteria Met Start: 08/01/24 12:11 Freq: Status: Active Protocol: Document 08/01/24 12:12 LO (Rec: 08/01/24 12:12 LO [id number]) Nutrition Malnutrition Evidence of Yes Malnutrition Exists Malnutrition (severe Chronic ): Evidenced By Suboptimal Energy Intake (Severe),Weight Loss (Severe) Intake Problem Increased Nutrient Needs (specify) Etiology protein related to increased demand for healing Signs/Symptoms as evidenced by left lower abdominal wound and coccyx pressure injury Status Active Problem Clinical Problem Chronic Disease or Condition Related Malnutrition Etiology severe related to suboptimal appetite and multile medical problems over the past 6 months including c. diff and AAA Signs/Symptoms as evidenced by 10.8kg (18.7%) unintentional weight loss in ~5 months and PO intakes meeting <75% of estimated nutrition needs for ~5 months; BMI 14 Status Active Problem Recommendation Dietitian Recommend advancing diet as tolerated to Regular when Recommendations/ medically able to optimize oral intakes. Changes Recommend 120mL ensure plus high protein 4x daily with medpass and Pramod BID with meals to provide supplemental energy and help promote wound healing. When medically able recommend via PEG tube, enteral nutrition of Jevity 1.5 at 50mL/hr x24 hours Lab / Micro Data 08/09/24 07:11 08/09/24 12:00 Labs: Laboratory Results - last 24 hr 08/08/24 16:53: POC Glucose 84 08/09/24 06:54: POC Glucose 77 08/09/24 07:11: WBC 6.4, RBC 3.11 L, Hgb 8.3 L, Hct 27.4 L, MCV 88.1, MCH 26.7 L, MCHC 30.3 L, RDW Std Deviation 60.7 H, RDW Coeff of Monika 18.8 H, Plt Count 111 L, MPV 10.3, Immature Gran % (Auto) 2.000 H, Neut % (Auto) 84.3 H, Lymph % (Auto) 6.0 L, [place] % (Auto) 5.0, Eos % (Auto) 1.9, Baso % (Auto) 0.8, Absolute Neuts (auto) 5.4, Absolute Lymphs (auto) 0.38 L, Nucleated RBC % 0, Sodium 134, Potassium 3.9, Chloride 105, Carbon Dioxide 20.7 L, Anion Gap 9, BUN 30 H, Creatinine 1.43 H, Estim Creat Clear Calc 27.63 L, Est GFR (MDRD) Non-Af 41 L, BUN/Creatinine Ratio 20.7 H, Glucose 83, Calcium 7.4 L 08/09/24 12:00: Glucose 100 H Micro: Microbiology 08/07/24 00:30 Stool C. difficile GDH Antigen & Toxins - Final 08/07/24 00:30 Stool Clostridioides difficile (PCR) - Final Radiography Diagnostic Testing: Radiology Impression Abdomen/Pelvis CT 08/08/24 18:30 IMPRESSION: No change from 08/06/2024. One or more dose reduction techniques were used (e.g., Automated exposure control, adjustment of the mA and/or kV according to patient size, use of iterative reconstruction technique). Reading Location: [id number] Physical Exam Narrative Alert awake oriented x 3 no obvious distress s1s2 no murmurs lungs clear abdomen soft. PEG tube intact no edema to b/l legs but does have some pedal edema Tunneled HD catheter dressing clean, dry and intact Assessment & Plan Assessment/Plan (1) End stage renal disease: PLAN: - ESRD on hemodialysis Monday at [facility]. HD today. see orders. - Anemia of chronic disease; patient receives DENISE and iron at dialysis. Will monitor hemoglobin trends. - UGI bleed 2/2 ulceration from dislodged PEG tube. Tolerating TF now. On PPI
[2024-08-09 18:52] LABS: Glucose 108 mg/dL (70-99)
[2024-08-09] MEDS: amLODIPine 5 MG Tablet PO (21:31)
[2024-08-09] MEDS: Mirtazapine 30 MG Tablet PO (21:31)
[2024-08-09] MEDS: Atorvastatin Calcium 20 MG Tablet PO (21:31)
[2024-08-09] MEDS: Thiamine Hydrochloride 100 MG Tablet PO (21:31)
[2024-08-10 04:00] VITALS: BP 168/70; PULSE 77; RESP 16; TEMP 36.6; O2SAT 96
[2024-08-10] MEDS: Levothyroxine 100 MCG Tablet 200 MCG PO (05:37)
[2024-08-10 07:25] LABS: Anion Gap 8 (5-15); BUN 21 mg/dL (4-19); Calcium,Total 7.6 mg/dL (7.6-11.0); Carbon Dioxide 23.2 mmol/L (21.0-32.0); Chloride 105 mmol/L (98-108); Creatinine, Serum 1.17 mg/dL (0.70-1.20); EST Glomerular Filtration Rate 53 (>60); Estimated Creatinine Clearance 33.06 ml/min (50-250); Glucose 106 mg/dL (70-99); Potassium 3.7 mmol/L (3.3-5.1); Sodium Level 136 mmol/L (133-145)
[2024-08-10 08:23] VITALS: BP 157/68; PULSE 79; RESP 14; TEMP 36.2; O2SAT 92
[2024-08-10 08:34] LABS: Absolute Lymphocyte Count 0.58 X10^3/uL (0.83-4.51); Absolute Neutrophil Count 5.6 X10^3/uL (2.0-7.7); Basophil# 0.08 X10^3/uL; Basophil% 1.1 % (0-1); Eosinophil# 0.21 X10^3/uL; Hematocrit 29.4 % (37-47); Hemoglobin 8.8 g/dL (12.0-15.0); Lymphocyte # 0.58 X10^3/ul (0.83-4.51); Lymphocyte % 8.3 % (19-41); Mean Corp Hgb Conc 29.9 g/dL (32-36); Mean Corpuscular Hgb 26.8 pg (27.0-32.0); Mean Corpuscular Volume 89.6 fL (81-99); Monocyte# 0.36 X10^3/uL; Monocyte% 5.2 % (0-10); NRBC Flagged by Analyzer 0 % (0-5); Neutrophil # 5.63 X10^3/uL (2.7-7.7); POSITIVE DIFFERENTIAL YES; Platelet Count 125 K/mm3 (150-450); RBC Distribution Width CV 19.4 % (11.6-14.6); RBC Distribution Width SD 63.1 fl (35.1-43.9); Red Blood Count 3.28 M/mm3 (4.2-5.4)
--- NOTE | 2024-08-10 08:46 | PN.HOSP_ITS ---
Reason for Visit Reason for Visit: Diagnoses Acute posthemorrhagic anemia (07/31/24) Hypoglycemia, unspecified (07/31/24) Hematemesis (07/31/24) Gastrointestinal hemorrhage, unspecified (07/31/24) End stage renal disease (07/31/24) Diarrhea, unspecified (07/31/24) Abnormal findings on diagnostic imaging of other abdominal regions, including retroperitoneum (07/31/24) Subjective Subjective abdominal pain intermittently. still with diarrhea. Objective Data Objective Data Vital Signs: Vital Signs Temp Pulse Resp BP Pulse Ox O2 Del Method O2 Flow Rate 36.6 C 77 16 168/70 H 96 Nasal Cannula 3 08/10/24 04:00 08/10/24 04:00 08/10/24 04:00 08/10/24 04:00 08/10/24 04:00 08/10/24 07:53 08/10/24 07:53 FiO2 95 08/06/24 11:09 Oxygen Flow Rate (L/min) 3 Oxygen Delivery Method Nasal Cannula Weight: 42 kg Body Mass Index (BMI) 12.5 Intake & Output: Intake and Output for Last 24 Hours 08/08/24 08/09/24 08/10/24 23:59 23:59 23:59 Intake Total 1968.0 / 1968.0 2321.00 / 2381.00 895.67 / 895.67 Output Total 0 / 0 2400 / 2400 400 / 400 Balance 1968.0 / 1968.0 -79.00 / -19.00 495.67 / 495.67 Medical Nutrition Assessment Dietitian: Malnutrition Criteria Met Start: 08/01/24 12:11 Freq: Status: Active Protocol: Document 08/01/24 12:12 LO (Rec: 08/01/24 12:12 [id number]) Nutrition Malnutrition Evidence of Yes Malnutrition Exists Malnutrition (severe Chronic ): Evidenced By Suboptimal Energy Intake (Severe),Weight Loss (Severe) Intake Problem Increased Nutrient Needs (specify) Etiology protein related to increased demand for healing Signs/Symptoms as evidenced by left lower abdominal wound and coccyx pressure injury Status Active Problem Clinical Problem Chronic Disease or Condition Related Malnutrition Etiology severe related to suboptimal appetite and multile medical problems over the past 6 months including c. diff and AAA Signs/Symptoms as evidenced by 10.8kg (18.7%) unintentional weight loss in ~5 months and PO intakes meeting <75% of estimated nutrition needs for ~5 months; BMI 14 Status Active Problem Recommendation Dietitian Recommend advancing diet as tolerated to Regular when Recommendations/ medically able to optimize oral intakes. Changes Recommend 120mL ensure plus high protein 4x daily with medpass and Pramod BID with meals to provide supplemental energy and help promote wound healing. When medically able recommend via PEG tube, enteral nutrition of Jevity 1.5 at 50mL/hr x24 hours Lab / Micro Data 08/10/24 06:12 08/10/24 06:12 Labs: Laboratory Results - last 24 hr 08/09/24 12:00: Glucose 100 H 08/09/24 17:47: Glucose 108 H 08/10/24 06:12: WBC 7.0, RBC 3.28 L, Hgb 8.8 L, Hct 29.4 L, MCV 89.6, MCH 26.8 L , MCHC 29.9 L, RDW Std Deviation 63.1 H, RDW Coeff of Monika 19.4 H, Plt Count 125 L, MPV 10.0, Immature Gran % (Auto) 1.400 H, Neut % (Auto) 81.0 H, Lymph % (Auto) 8.3 L, [place] % (Auto) 5.2, Eos % (Auto) 3.0, Baso % (Auto) 1.1 H, Absolute Neuts (auto) 5.6, Absolute Lymphs (auto) 0.58 L, Nucleated RBC % 0, Sodium 136, Potassium 3.7, Chloride 105, Carbon Dioxide 23.2, Anion Gap 8, BUN 21 H, Creatinine 1.17, Estim Creat Clear Calc 33.06 L, Est GFR (MDRD) Non-Af 53 L, BUN/Creatinine Ratio 18.0, Glucose 106 H, Calcium 7.6 Micro: Microbiology 08/07/24 00:30 Stool C. difficile GDH Antigen & Toxins - Final 08/07/24 00:30 Stool Clostridioides difficile (PCR) - Final Physical Exam Const alert and no apparent distress HEENT head/scalp atraumatic and moist oral mucous membranes Resp normal respiratory effort, no retractions, no use of accessory muscles and clear to auscultation bilaterally Cardio regular rate, regular rhythm, S1 normal heart sound and S2 normal heart sound GI normal to inspection, nondistended, normoactive bowel sounds, soft to palpation, non-tender and non-distended GI Narrative: serrous fluid around PEG. Extremity Extremity Narrative: cyanosis of fingertips. Assessment & Plan Assessment/Plan (1) GI bleed: PLAN: 2/2 ulceration from dislodged PEG tube. change to pantoprazole BID IV. (2) ABLA (acute blood loss anemia): PLAN: 2/2 GI bleed. Improved after transfusion. Monitor. Currently stable. (3) Abnormal CT of the abdomen: PLAN: CT showes gastrostomy tube noted within the stomach. No ellie evidence of contrast extravasation. Fluid around the gastrostomy tube, outside stomach which appears to be increase in his prior examination. This may represent leakage of gastric contents versus increasing intra-abdominal collection. Complex abdominal fluid collection remain largest collection seen when in the right retroperitoneum. Appears overall increased since prior examination. 08/07: I discussed with Dr. Gallegos who recommended percutaneous drain. Spoke with Dr. Haas who states that there is a lot of bowel that would make percutaneous drain much more complex and risky. He advised against percutaneous drain but it I recommend follow-up CAT scan about a week's time to see if there is been any increased fluid collection that may be more amenable to percutaneous drain. 08/08: worsening abdominal pain during the day. CT showed no acute changes. (4) Diarrhea: PLAN: Positive for C. difficile antigen but negative for toxin so not active C. difficile. Likely due to the tube feeds and poor nutrition overall. Will add loperamide to see if we can slow her down. Ongoing, continue FMT. (5) Hypoglycemia: PLAN: Glucose dropped to 34 while on tube feeds. Order 1 amp D50. Per nursing, finger sticks do not correlate with the labs. So, it would seem the finger- sticks are inaccurate, especially since she is asymptomatic. Continue to monitor. Pt is not on insulin nor any hypoglycemic agents. On D5NS. (6) Raynaud disease: PLAN: already on 5mg/d of amlodipine. will increase to 10mg. Unclear if this is the reason for the discrepancy in the glucose readings. PLAN: Plan Severe protein-calorie malnutrition: * PEG placed on 07/24. Repeat EGD on showed dislodged gastrostomy tube with the bumper buried in the cardia with large defect. Defect repaired. * DW Dr. Gallegos 08/05, ok to use PEG tube, but with continuous infusion rather than bolus feedings. Will continue at 20cc/h for now. Reevaluated in AM. No need for PICC/TPN at this time. * 08/06: advanced tube feeds to 30cc/h. * 08/07: Continue the tube feeds at current rate. Also continue with clear liquid diet for now given the CT findings from the . * 08/08: advance diet to fulls. Increase tube feed rate to 50cc/h. Later, made NPO due to worsening abdominal pain. * 08/09: resume Jevity 1.5 at 30cc/h, resume full liquid diet. * 08/10: increase Jevity 1.5 to 50cc/h, advance diet to transitional. If diarrhea continue, may need nutrition to determine if another supplement may be better tolerated. Chronic Open abdominal wall wound: * Ongoing since February and patient did have a wound VAC at that time. Wound care following. Follow up with wound care as outpt. End stage renal disease: * Secondary to ATN from hemorrhagic shock and never had recovery. Patient on dialysis every Monday. Nephrology following. Chronic conditions * Factor V Leiden deficiency hold off on her aspirin for now. * Hypertension: Continue with amlodipine and metoprolol titrate. * Hypothyroidism: Continue levothyroxine * History of C. difficile: Does not appear to have any active symptoms at this time. * Depression: Continue sertraline. 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 Expectant management at this time VTE prophylaxis with SCDs for now Charges/Coding Visit Charges Inpatient E&M: 04858 Subs Hosp L2
[2024-08-10] MEDS: Pantoprazole Sodium 40 MG in 0.9% Normal Saline (100mL MB+) 100 ML 330 MG IV ×2 (09:56→23:00)
[2024-08-10] MEDS: Menthol/Lanolin/Calamine/Znox 113 GM Tube 1 APPLIC TOPICAL ×4 (10:08→22:52)
[2024-08-10] MEDS: Lactobacillis Acidophilus 1 CAP PO (10:08)
[2024-08-10 10:09] VITALS: PULSE 79
[2024-08-10] MEDS: Metoprolol Tartrate 25 MG Tablet PO ×2 (10:09→22:54)
[2024-08-10] MEDS: Folic Acid/Vitamin B Comp W-C 1 Capsule 1 CAP PO (10:10)
[2024-08-10] MEDS: Ascorbic Acid 500 MG Tablet PO (10:11)
[2024-08-10] MEDS: Thiamine Hydrochloride 100 MG Tablet PO ×2 (10:11→22:56)
[2024-08-10] MEDS: Cholecalciferol (Vit D3) 125 MCG CAPSULE (5,000 UNITS) PO (10:12)
[2024-08-10] MEDS: Sertraline 50 MG Tablet 25 MG PO (10:12)
[2024-08-10] MEDS: Acetaminophen 325 MG Tablet 650 MG PO (10:13)
[2024-08-10] MEDS: Piperacil/Tazobactam 3.375 GM in 0.9% Normal Saline (50mL MB+) 50 ML IV ×2 (10:13→22:49)
[2024-08-10] MEDS: Loperamide 2 MG Capsule PO ×3 (10:13→16:41)
[2024-08-10] MEDS: Dronabinol 2.5 MG Capsule PO ×2 (12:47→16:41)
[2024-08-10] MEDS: Dextrose 5%/0.9% NaCl 1,000 ML 35 ML IV (12:53)
[2024-08-10] MEDS: Dextrose 10%-Water 250 ML 999 ML IV (13:02)
--- NOTE | 2024-08-10 13:47 | NURSING ---
1200 finger stick read 44 and a repeat of 48. Administered D10 per protocol and allowed patient to eat her lunch. Obtained a repeat fingerstick 15 minutes after completion of D10 with a reading of 45. Dr. Galvin notified. Ordered to D/c finger sticks and order q 6 glucose lab draws.
[2024-08-10 14:00] VITALS: BP 158/85; PULSE 78; RESP 16; TEMP 36.6; O2SAT 93
[2024-08-10 14:01] LABS: Bedside Glucose 45 mg/dL (74-106)
[2024-08-10 16:16] LABS: Glucose 135 mg/dL (70-99)
[2024-08-10] MEDS: Jevity 1.5 1,000 ML 50 ML GT (16:48)
[2024-08-10 22:00] VITALS: BP 101/83; PULSE 86; RESP 22; TEMP 37; O2SAT 92
[2024-08-10] MEDS: Mirtazapine 30 MG Tablet PO (22:53)
[2024-08-10 22:54] VITALS: BP 101/83; PULSE 86
[2024-08-10] MEDS: Atorvastatin Calcium 20 MG Tablet PO (22:55)
[2024-08-10] MEDS: amLODIPine 10 MG Tablet PO (22:56)
[2024-08-10] MEDS: 0.9% Saline Lock 10 ML Syringe IV (22:57)
[2024-08-10 23:34] LABS: Glucose 139 mg/dL (70-99)
[2024-08-11] VITALS (7 sets, daily range): BP systolic 130–169; BP diastolic 69–78; PULSE 81–104; RESP 16–20; TEMP 3–37.4; O2SAT 96–99
[2024-08-11] MEDS: Morphine 2 MG/ML Syringe IV ×2 (00:53→12:28)
[2024-08-11] MEDS: 0.9% Saline Lock 10 ML Syringe IV ×5 (00:54→22:13)
[2024-08-11 02:44] LABS: Glucose 127 mg/dL (70-99)
[2024-08-11] MEDS: Levothyroxine 100 MCG Tablet 200 MCG PO (06:12)
[2024-08-11 06:35] LABS: Absolute Lymphocyte Count 0.53 X10^3/uL (0.83-4.51); Absolute Neutrophil Count 5.3 X10^3/uL (2.0-7.7); Basophil# 0.04 X10^3/uL; Basophil% 0.6 % (0-1); Eosinophil# 0.18 X10^3/uL; Eosinophils% 2.8 % (0-5); Hematocrit 24.7 % (37-47); Hemoglobin 7.4 g/dL (12.0-15.0); Lymphocyte # 0.53 X10^3/ul (0.83-4.51); Lymphocyte % 8.3 % (19-41); Mean Corpuscular Hgb 26.9 pg (27.0-32.0); Mean Corpuscular Volume 89.8 fL (81-99); Monocyte# 0.31 X10^3/uL; Monocyte% 4.8 % (0-10); NRBC Flagged by Analyzer 0 % (0-5); Neutrophil # 5.26 X10^3/uL (2.7-7.7); Neutrophil % 82.1 % (47-70); POSITIVE DIFFERENTIAL YES; Platelet Count 113 K/mm3 (150-450); RBC Distribution Width CV 19.5 % (11.6-14.6); RBC Distribution Width SD 62.7 fl (35.1-43.9); Red Blood Count 2.75 M/mm3 (4.2-5.4); White Blood Count 6.4 K/mm3 (4.4-11.0)
[2024-08-11 06:45] LABS: Anion Gap 9 (5-15); BUN 26 mg/dL (4-19); BUN/Creat Ratio 18.6 RATIO (10-20); Calcium,Total 7.4 mg/dL (7.6-11.0); Carbon Dioxide 21.3 mmol/L (21.0-32.0); Chloride 106 mmol/L (98-108); Creatinine, Serum 1.39 mg/dL (0.70-1.20); EST Glomerular Filtration Rate 43 (>60); Estimated Creatinine Clearance 27.82 ml/min (50-250); Glucose 114 mg/dL (70-99); Potassium 3.7 mmol/L (3.3-5.1); Sodium Level 136 mmol/L (133-145)
[2024-08-11 08:24] LABS: Glucose 123 mg/dL (70-99)
--- NOTE | 2024-08-11 08:27 | PN.HOSP_ITS ---
Reason for Visit Reason for Visit: Diagnoses Acute posthemorrhagic anemia (07/31/24) Hypoglycemia, unspecified (07/31/24) Raynaud's syndrome without gangrene (07/31/24) Hematemesis (07/31/24) Gastrointestinal hemorrhage, unspecified (07/31/24) End stage renal disease (07/31/24) Diarrhea, unspecified (07/31/24) Abnormal findings on diagnostic imaging of other abdominal regions, including retroperitoneum (07/31/24) Subjective Subjective Abdominal pain off and on. But overall improved. Objective Data Objective Data Vital Signs: Vital Signs Temp Pulse Resp BP Pulse Ox O2 Del Method O2 Flow Rate 36.9 C 86 20 H 169/74 H 98 Nasal Cannula 3 08/11/24 04:00 08/11/24 04:00 08/11/24 04:00 08/11/24 04:00 08/11/24 04:00 08/11/24 07:17 08/11/24 07:17 FiO2 95 08/06/24 11:09 Oxygen Flow Rate (L/min) 3 Oxygen Delivery Method Nasal Cannula Weight: 42 kg Body Mass Index (BMI) 12.5 Intake & Output: Intake and Output for Last 24 Hours 08/09/24 08/10/24 08/11/24 23:59 23:59 23:59 Intake Total 2321.00 / 2381.00 3610.50 / 3760.50 250 / 250 Output Total 2400 / 2400 1200 / 1370 170 / 170 Balance -79.00 / -19.00 2410.50 / 2390.50 80 / 80 Medical Nutrition Assessment Dietitian: Malnutrition Criteria Met Start: 08/01/24 12:11 Freq: Status: Active Protocol: Document 08/01/24 12:12 LO (Rec: 08/01/24 12:12 LO [id number]) Nutrition Malnutrition Evidence of Yes Malnutrition Exists Malnutrition (severe Chronic ): Evidenced By Suboptimal Energy Intake (Severe),Weight Loss (Severe) Intake Problem Increased Nutrient Needs (specify) Etiology protein related to increased demand for healing Signs/Symptoms as evidenced by left lower abdominal wound and coccyx pressure injury Status Active Problem Clinical Problem Chronic Disease or Condition Related Malnutrition Etiology severe related to suboptimal appetite and multile medical problems over the past 6 months including c. diff and AAA Signs/Symptoms as evidenced by 10.8kg (18.7%) unintentional weight loss in ~5 months and PO intakes meeting <75% of estimated nutrition needs for ~5 months; BMI 14 Status Active Problem Recommendation Dietitian Recommend advancing diet as tolerated to Regular when Recommendations/ medically able to optimize oral intakes. Changes Recommend 120mL ensure plus high protein 4x daily with medpass and Pramod BID with meals to provide supplemental energy and help promote wound healing. When medically able recommend via PEG tube, enteral nutrition of Jevity 1.5 at 50mL/hr x24 hours Lab / Micro Data 08/11/24 06:00 08/11/24 07:50 Labs: Laboratory Results - last 24 hr 08/10/24 06:12: WBC 7.0, RBC 3.28 L, Hgb 8.8 L, Hct 29.4 L, MCV 89.6, MCH 26.8 L , MCHC 29.9 L, RDW Std Deviation 63.1 H, RDW Coeff of Monika 19.4 H, Plt Count 125 L, MPV 10.0, Immature Gran % (Auto) 1.400 H, Neut % (Auto) 81.0 H, Lymph % (Auto) 8.3 L, [place] % (Auto) 5.2, Eos % (Auto) 3.0, Baso % (Auto) 1.1 H, Absolute Neuts (auto) 5.6, Absolute Lymphs (auto) 0.58 L, Nucleated RBC % 0 08/10/24 13:42: POC Glucose 45 L 08/10/24 14:58: Glucose 135 H 08/10/24 22:30: Glucose 139 H 08/11/24 02:15: Glucose 127 H 08/11/24 06:00: WBC 6.4, RBC 2.75 L, Hgb 7.4 L, Hct 24.7 L, MCV 89.8, MCH 26.9 L , MCHC 30.0 L, RDW Std Deviation 62.7 H, RDW Coeff of Monika 19.5 H, Plt Count 113 L, MPV 10.0, Immature Gran % (Auto) 1.400 H, Neut % (Auto) 82.1 H, Lymph % (Auto) 8.3 L, [place] % (Auto) 4.8, Eos % (Auto) 2.8, Baso % (Auto) 0.6, Absolute Neuts (auto) 5.3, Absolute Lymphs (auto) 0.53 L, Nucleated RBC % 0, Sodium 136, Potassium 3.7, Chloride 106, Carbon Dioxide 21.3, Anion Gap 9, BUN 26 H, C reatinine 1.39 H, Estim Creat Clear Calc 27.82 L, Est GFR (MDRD) Non-Af 43 L, BUN/Creatinine Ratio 18.6, Glucose 114 H, Calcium 7.4 L 08/11/24 07:50: Glucose 123 H Micro: Microbiology 08/07/24 00:30 Stool C. difficile GDH Antigen & Toxins - Final 08/07/24 00:30 Stool Clostridioides difficile (PCR) - Final Physical Exam Const alert and no apparent distress HEENT head/scalp atraumatic and moist oral mucous membranes Resp normal respiratory effort, no retractions, no use of accessory muscles and clear to auscultation bilaterally Cardio regular rate, regular rhythm, S1 normal heart sound and S2 normal heart sound GI normal to inspection, nondistended, normoactive bowel sounds, soft to palpation, non-tender and non-distended GI Narrative: PEG site with gauze w/o drainage. Extremity normal to inspection and full ROM Neuro oriented x3 and moves all extremities Sensorium / Orientation: awake and alert Assessment & Plan Assessment/Plan (1) GI bleed: PLAN: 2/2 ulceration from dislodged PEG tube. change pantoprazole to PO BID. (2) ABLA (acute blood loss anemia): PLAN: 2/2 GI bleed. Improved after transfusion. Monitor. Currently stable. (3) Abnormal CT of the abdomen: PLAN: CT showes gastrostomy tube noted within the stomach. No ellie evidence of contrast extravasation. Fluid around the gastrostomy tube, outside stomach which appears to be increase in his prior examination. This may represent leakage of gastric contents versus increasing intra-abdominal collection. Complex abdominal fluid collection remain largest collection seen when in the right retroperitoneum. Appears overall increased since prior examination. 08/07: I discussed with Dr. Gallegos who recommended percutaneous drain. Spoke with Dr. Haas who states that there is a lot of bowel that would make percutaneous drain much more complex and risky. He advised against percutaneous drain but it I recommend follow-up CAT scan about a week's time to see if there is been any increased fluid collection that may be more amenable to percutaneous drain. 08/08: worsening abdominal pain during the day. CT showed no acute changes. 08/11: stable. No s/s of infection. DC pip/tazo. Follow up CT in 1-2 months, if not worsening. (4) Diarrhea: PLAN: Positive for C. difficile antigen but negative for toxin so not active C. difficile. Likely due to the tube feeds and poor nutrition overall. Will add loperamide to see if we can slow her down. Ongoing, but improving. Continue FMT for now. (5) Hypoglycemia: PLAN: Likely incorrect. Finger sticks were not correlating with serum checks. Unclear if affected by her raynaud's. So, discontinued finger stick sticks on 08/10 and the serum checks have been unremarkable. No additional work up, unless pt clearly symptomatic from hypoglycemia (she never was with the hypoglycemic (6) Raynaud disease: PLAN: already on 5mg/d of amlodipine. will increase to 10mg. Unclear if this is the reason for the discrepancy in the glucose readings. PLAN: Plan Severe protein-calorie malnutrition: * PEG placed on 07/24. Repeat EGD on showed dislodged gastrostomy tube with the bumper buried in the cardia with large defect. Defect repaired. * DANIEL Phillip. Friend 08/05, ok to use PEG tube, but with continuous infusion rather than bolus feedings. Will continue at 20cc/h for now. Reevaluated in AM. No need for PICC/TPN at this time. * 08/06: advanced tube feeds to 30cc/h. * 08/07: Continue the tube feeds at current rate. Also continue with clear liquid diet for now given the CT findings from the . * 08/08: advance diet to fulls. Increase tube feed rate to 50cc/h. Later, made NPO due to worsening abdominal pain. * 08/09: resume Jevity 1.5 at 30cc/h, resume full liquid diet. * 08/10: increase Jevity 1.5 to 50cc/h, advance diet to transitional. If diarrhea continue, may need nutrition to determine if another supplement may be better tolerated. Chronic Open abdominal wall wound: * Ongoing since February and patient did have a wound VAC at that time. Wound care following. Follow up with wound care as outpt. End stage renal disease: * Secondary to ATN from hemorrhagic shock and never had recovery. Patient on dialysis every Monday. Nephrology following. Chronic conditions * Factor V Leiden deficiency hold off on her aspirin for now. * Hypertension: Continue with amlodipine and metoprolol titrate. * Hypothyroidism: Continue levothyroxine * History of C. difficile: Does not appear to have any active symptoms at this time. * Depression: Continue sertraline. 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 Expectant management at this time VTE prophylaxis with SCDs for now Disposition: back to SNF if continues tolerate diet and tube feeds, tube feed induced diarrhea improved and whether patient can go to SNF covered by insurance v private pay. I feel the patient would benefit from skilled care as her overall clinical condition has improved. Charges/Coding Visit Charges Inpatient E&M: 36340 Subs Hosp L2
[2024-08-11] MEDS: Cholecalciferol (Vit D3) 125 MCG CAPSULE (5,000 UNITS) PO (09:27)
[2024-08-11] MEDS: Metoprolol Tartrate 25 MG Tablet PO ×2 (09:27→22:12)
[2024-08-11] MEDS: Ascorbic Acid 500 MG Tablet PO (09:27)
[2024-08-11] MEDS: Sertraline 50 MG Tablet 25 MG PO (09:27)
[2024-08-11] MEDS: Thiamine Hydrochloride 100 MG Tablet PO ×2 (09:27→22:15)
[2024-08-11] MEDS: Lactobacillis Acidophilus 1 CAP PO (09:27)
[2024-08-11] MEDS: Acetaminophen 325 MG Tablet 650 MG PO (09:32)
[2024-08-11] MEDS: Menthol/Lanolin/Calamine/Znox 113 GM Tube 1 APPLIC TOPICAL ×4 (09:34→22:11)
[2024-08-11] MEDS: Pantoprazole Sodium 40 MG in 0.9% Normal Saline (100mL MB+) 100 ML 330 MG IV (09:34)
[2024-08-11] MEDS: Piperacil/Tazobactam 3.375 GM in 0.9% Normal Saline (50mL MB+) 50 ML IV (10:27)
[2024-08-11] MEDS: Dronabinol 2.5 MG Capsule PO ×2 (12:28→16:16)
[2024-08-11] MEDS: Jevity 1.5 1,000 ML 50 ML GT (12:43)
[2024-08-11 15:18] LABS: Glucose 99 mg/dL (70-99)
[2024-08-11] MEDS: Dextrose 5%/0.9% NaCl 1,000 ML 35 ML IV (16:05)
[2024-08-11 21:15] LABS: Glucose 99 mg/dL (70-99)
[2024-08-11] MEDS: Atorvastatin Calcium 20 MG Tablet PO (22:12)
[2024-08-11] MEDS: Pantoprazole Sodium 40 MG Tablet PO (22:13)
[2024-08-11] MEDS: amLODIPine 10 MG Tablet PO (22:13)
[2024-08-11] MEDS: Mirtazapine 30 MG Tablet PO (22:16)
[2024-08-12] VITALS (22 sets, daily range): BP systolic 20–214; BP diastolic 45–87; PULSE 80–101; RESP 14–20; TEMP 36.6–37.9; O2SAT 92–100; BMI 12.5; BMI 11.9
[2024-08-12 02:54] LABS: Glucose 109 mg/dL (70-99)
[2024-08-12 04:37] LABS: Absolute Lymphocyte Count 0.51 X10^3/uL (0.83-4.51); Basophil# 0.02 X10^3/uL; Basophil% 0.4 % (0-1); Eosinophil# 0.17 X10^3/uL; Eosinophils% 3.4 % (0-5); Hematocrit 21.7 % (37-47); Hemoglobin 6.6 g/dL (12.0-15.0); Lymphocyte # 0.51 X10^3/ul (0.83-4.51); Lymphocyte % 10.1 % (19-41); Mean Corp Hgb Conc 30.4 g/dL (32-36); Mean Corpuscular Hgb 27.2 pg (27.0-32.0); Mean Corpuscular Volume 89.3 fL (81-99); Mean Platelet Vol. 10.1 fl (6.2-12.0); Monocyte# 0.32 X10^3/uL; Monocyte% 6.3 % (0-10); NRBC Flagged by Analyzer 0 % (0-5); Neutrophil # 3.96 X10^3/uL (2.7-7.7); Neutrophil % 78.2 % (47-70); POSITIVE DIFFERENTIAL YES; Platelet Count 107 K/mm3 (150-450); RBC Distribution Width CV 19.9 % (11.6-14.6); RBC Distribution Width SD 63.5 fl (35.1-43.9); Red Blood Count 2.43 M/mm3 (4.2-5.4); White Blood Count 5.1 K/mm3 (4.4-11.0)
[2024-08-12 04:56] LABS: Anion Gap 8 (5-15); BUN 27 mg/dL (4-19); Calcium,Total 7.6 mg/dL (7.6-11.0); Carbon Dioxide 22.3 mmol/L (21.0-32.0); Chloride 106 mmol/L (98-108); Creatinine, Serum 1.47 mg/dL (0.70-1.20); EST Glomerular Filtration Rate 40 (>60); Estimated Creatinine Clearance 26.31 ml/min (50-250); Glucose 104 mg/dL (70-99); Sodium Level 136 mmol/L (133-145)
[2024-08-12] MEDS: Levothyroxine 100 MCG Tablet 200 MCG PO (06:10)
[2024-08-12] MEDS: 0.9% Saline Lock 10 ML Syringe IV ×2 (06:11→20:38)
--- NOTE | 2024-08-12 07:45 | PN.HOSP_ITS ---
Reason for Visit Reason for Visit: Diagnoses Acute posthemorrhagic anemia (07/31/24) Hypoglycemia, unspecified (07/31/24) Raynaud's syndrome without gangrene (07/31/24) Hematemesis (07/31/24) Gastrointestinal hemorrhage, unspecified (07/31/24) End stage renal disease (07/31/24) Diarrhea, unspecified (07/31/24) Abnormal findings on diagnostic imaging of other abdominal regions, including retroperitoneum (07/31/24) Objective Data Objective Data Vital Signs: Vital Signs Temp Pulse Resp BP Pulse Ox O2 Del Method O2 Flow Rate 97.8 F 96 20 H 152/71 H 96 Nasal Cannula 3 08/12/24 04:00 08/12/24 04:00 08/12/24 04:00 08/12/24 04:00 08/12/24 04:00 08/12/24 04:00 08/12/24 04:00 FiO2 95 08/06/24 11:09 Oxygen Flow Rate (L/min) 3 Oxygen Delivery Method Nasal Cannula Weight: 92 lb 9.506 oz Body Mass Index (BMI) 12.5 Intake & Output: Intake and Output for Last 24 Hours 08/10/24 08/11/24 08/12/24 23:59 23:59 23:59 Intake Total 3610.50 / 3760.50 2483.75 / 2653.75 370 / 370 Output Total 1200 / 1370 320 / 420 150 / 150 Balance 2410.50 / 2390.50 2163.75 / 2233.75 220 / 220 Medical Nutrition Assessment Dietitian: Malnutrition Criteria Met Start: 08/01/24 12:11 Freq: Status: Active Protocol: Document 08/01/24 12:12 LO (Rec: 08/01/24 12:12 LO [id number]) Nutrition Malnutrition Evidence of Yes Malnutrition Exists Malnutrition (severe Chronic ): Evidenced By Suboptimal Energy Intake (Severe),Weight Loss (Severe) Intake Problem Increased Nutrient Needs (specify) Etiology protein related to increased demand for healing Signs/Symptoms as evidenced by left lower abdominal wound and coccyx pressure injury Status Active Problem Clinical Problem Chronic Disease or Condition Related Malnutrition Etiology severe related to suboptimal appetite and multile medical problems over the past 6 months including c. diff and AAA Signs/Symptoms as evidenced by 10.8kg (18.7%) unintentional weight loss in ~5 months and PO intakes meeting <75% of estimated nutrition needs for ~5 months; BMI 14 Status Active Problem Recommendation Dietitian Recommend advancing diet as tolerated to Regular when Recommendations/ medically able to optimize oral intakes. Changes Recommend 120mL ensure plus high protein 4x daily with medpass and Pramod BID with meals to provide supplemental energy and help promote wound healing. When medically able recommend via PEG tube, enteral nutrition of Jevity 1.5 at 50mL/hr x24 hours Lab / Micro Data 08/12/24 04:25 08/12/24 08:15 Labs: Laboratory Results - last 24 hr 08/11/24 07:50: Glucose 123 H 08/11/24 14:49: Glucose 99 08/11/24 20:20: Glucose 99 08/12/24 02:10: Glucose 109 H 08/12/24 04:25: WBC 5.1, RBC 2.43 L, Hgb 6.6 L, Hct 21.7 L, MCV 89.3, MCH 27.2, MCHC 30.4 L, RDW Std Deviation 63.5 H, RDW Coeff of Monika 19.9 H, Plt Count 107 L, MPV 10.1, Immature Gran % (Auto) 1.600 H, Neut % (Auto) 78.2 H, Lymph % (Auto) 10.1 L, [place] % (Auto) 6.3, Eos % (Auto) 3.4, Baso % (Auto) 0.4, Absolute Neuts (auto) 4.0, Absolute Lymphs (auto) 0.51 L, Nucleated RBC % 0, Sodium 136, Potassium 4.0, Chloride 106, Carbon Dioxide 22.3, Anion Gap 8, BUN 27 H, C reatinine 1.47 H, Estim Creat Clear Calc 26.31 L, Est GFR (MDRD) Non-Af 40 L, BUN/Creatinine Ratio 18.0, Glucose 104 H, Calcium 7.6 Micro: Microbiology 08/07/24 00:30 Stool C. difficile GDH Antigen & Toxins - Final 08/07/24 00:30 Stool Clostridioides difficile (PCR) - Final Physical Exam Narrative Seen and examined. BP is 127/71. Heart rate 93/min. Patient is severely malnourished with the skin on bone apprehensive Physical exam General: Alert, Oriented x3, Cooperative, severely chronic malnourished. BMI 12.6 EKG pulm at risk HEENT: Atraumatic, PERRLA, EOMI, Normocephalic Oral: No Gingival or Mucosal Lesions/ Ulcerations Neck: Supple, No JVD, Negative Carotid Bruits Chest wall/Lungs: Air entry diminished in bilateral lung bases. No crepitation/rhonchi Cardiovascular: Regular rate, Regular Rhythm, Normal S1, Normal S2, No M/G/R Abdomen: PEG tube. Dressing on the left upper quadrant. Bowel Sounds Present, soft, nontender : No dysuria. No renal angle tenderness. No suprapubic tenderness. Extremities: No edema, Capillary Refill Less than 3 Seconds Skin: Tiny coccygeal skin tear, stage II present on admission Musculoskeletal: No Tenderness to Palpation of Joints or Extremities, chronic severe muscle atrophy. ROM restricted Neurological: Cranial nerves II-XII grossly intact, DTR 2+/4. Muscle power 4/5 at major joints Psych/Mental Status: Flat affect Assessment & Plan Assessment/Plan (1) GI bleed: PLAN: 2/2 ulceration from dislodged PEG tube. change pantoprazole to PO BID. (2) ABLA (acute blood loss anemia): PLAN: 2/2 GI bleed. Improved after transfusion. Monitor. Currently stable. 08/12: Hemoglobin dropped to 6.6. Monitor PRBC ordered. (3) Abnormal CT of the abdomen: PLAN: CT showes gastrostomy tube noted within the stomach. No ellie evidence of contrast extravasation. Fluid around the gastrostomy tube, outside stomach which appears to be increase in his prior examination. This may represent leakage of gastric contents versus increasing intra-abdominal collection. Complex abdominal fluid collection remain largest collection seen when in the right retroperitoneum. Appears overall increased since prior examination. 08/07: I discussed with Dr. Gallegos who recommended percutaneous drain. Spoke with Dr. Haas who states that there is a lot of bowel that would make percutaneous drain much more complex and risky. He advised against percutaneous drain but it I recommend follow-up CAT scan about a week's time to see if there is been any increased fluid collection that may be more amenable to percutaneous drain. 08/08: worsening abdominal pain during the day. CT showed no acute changes. 08/11: stable. No s/s of infection. DC pip/tazo. Follow up CT in 1-2 months, if not worsening. 08/12: No fever or signs of infection. Completed antibiotic as mentioned above (4) Diarrhea: PLAN: Positive for C. difficile antigen but negative for toxin so not active C. difficile. Likely due to the tube feeds and poor nutrition overall. Will add loperamide to see if we can slow her down. Ongoing, but improving. Continue FMT for now. (5) Hypoglycemia: PLAN: 08/12: Glucose low normal. Glucose 85 today, 104 in the morning, 109. A1c ordered for tomorrow a.m. (6) Raynaud disease: PLAN: already on 5mg/d of amlodipine. Amlodipine was increased to 10 mg. Unclear if this is the reason for the discrepancy in the glucose readings. PLAN: Plan Severe protein-calorie malnutrition: * PEG placed on 07/24. Repeat EGD on showed dislodged gastrostomy tube with the bumper buried in the cardia with large defect. Defect repaired. * DANIEL Higgins Friend 08/05, ok to use PEG tube, but with continuous infusion rather than bolus feedings. Will continue at 20cc/h for now. Reevaluated in AM. No need for PICC/TPN at this time. * 08/06: advanced tube feeds to 30cc/h. * 08/07: Continue the tube feeds at current rate. Also continue with clear liquid diet for now given the CT findings from the . * 08/08: advance diet to fulls. Increase tube feed rate to 50cc/h. Later, made NPO due to worsening abdominal pain. * 08/09: resume Jevity 1.5 at 30cc/h, resume full liquid diet. * 08/10: increase Jevity 1.5 to 50cc/h, advance diet to transitional. If diarrhea continue, may need nutrition to determine if another supplement may be better tolerated. Chronic Open abdominal wall wound: * Ongoing since February and patient did have a wound VAC at that time. Wound care following. Follow up with wound care as outpt. End stage renal disease: * Secondary to ATN from hemorrhagic shock and never had recovery. Patient on dialysis every Monday. Nephrology following. Chronic conditions * Factor V Leiden deficiency hold off on her aspirin for now. * Hypertension: Continue with amlodipine and metoprolol titrate. * Hypothyroidism: Continue levothyroxine * History of C. difficile: Does not appear to have any active symptoms at this time. * Depression: Continue sertraline. 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 Expectant management at this time VTE prophylaxis with SCDs for now Disposition: back to SNF if continues tolerate diet and tube feeds, tube feed induced diarrhea improved and whether patient can go to SNF covered by insurance v private pay. I feel the patient would benefit from skilled care as her overall clinical condition has improved. Charges/Coding Visit Charges Inpatient E&M: 68996 Subs Hosp L2
[2024-08-12] MEDS: 0.9% Normal Saline 1,000 ML IV.SOLN. 1000 ML OPERA.SITE (09:03)
[2024-08-12] MEDS: Midodrine HCl 5 MG Tablet 10 MG PO (09:07)
[2024-08-12] MEDS: PureFlow B 3K Dialysis Soln 1 BAG 6 BAG PF (09:09)
[2024-08-12] MEDS: Heparin 10,000 UNITS/10 ML Vial IV (09:16)
[2024-08-12] MEDS: Epoetin Alfa epbx 10,000 UNIT/ML 20000 UNIT IV (09:16)
[2024-08-12 09:25] LABS: Glucose 85 mg/dL (70-99)
[2024-08-12] MEDS: Acetaminophen 325 MG Tablet 650 MG PO (09:56)
--- NOTE | 2024-08-12 10:23 | CASEMGMT ---
Patient is not ready for discharge today. YVONNE called patient's sister Janette and let her know this information. YVONNE told Janette possible d/c tomorrow. Someone will contact her when patient is being discharged. YVONNE sent [facility] a message letting them know possible d/c tomorrow. Plan: d/c to [facility] under intermediate level of care.
--- NOTE | 2024-08-12 11:39 | PN.RENAL_ITS ---
Subjective Subjective Seen and examined on dialysis today. Objective Data Objective Data Vital Signs: Vital Signs Temp Pulse Resp BP Pulse Ox O2 Del Method O2 Flow Rate 97.9 F 84 14 114/69 95 Nasal Cannula 3 08/12/24 08:20 08/12/24 11:30 08/12/24 08:20 08/12/24 11:30 08/12/24 10:45 08/12/24 08:20 08/12/24 08:20 FiO2 95 08/06/24 11:09 Oxygen Flow Rate (L/min) 3 Oxygen Delivery Method Nasal Cannula Weight: 42 kg Body Mass Index (BMI) 12.5 Intake & Output: Intake and Output for Last 24 Hours 08/10/24 08/11/24 08/12/24 23:59 23:59 23:59 Intake Total 3610.50 / 3760.50 2483.75 / 2653.75 370 / 370 Output Total 1200 / 1370 320 / 420 150 / 150 Balance 2410.50 / 2390.50 2163.75 / 2233.75 220 / 220 Medical Nutrition Assessment Dietitian: Malnutrition Criteria Met Start: 08/01/24 12:11 Freq: Status: Active Protocol: Document 08/01/24 12:12 LO (Rec: 08/01/24 12:12 LO [id number]) Nutrition Malnutrition Evidence of Yes Malnutrition Exists Malnutrition (severe Chronic ): Evidenced By Suboptimal Energy Intake (Severe),Weight Loss (Severe) Intake Problem Increased Nutrient Needs (specify) Etiology protein related to increased demand for healing Signs/Symptoms as evidenced by left lower abdominal wound and coccyx pressure injury Status Active Problem Clinical Problem Chronic Disease or Condition Related Malnutrition Etiology severe related to suboptimal appetite and multile medical problems over the past 6 months including c. diff and AAA Signs/Symptoms as evidenced by 10.8kg (18.7%) unintentional weight loss in ~5 months and PO intakes meeting <75% of estimated nutrition needs for ~5 months; BMI 14 Status Active Problem Recommendation Dietitian Recommend advancing diet as tolerated to Regular when Recommendations/ medically able to optimize oral intakes. Changes Recommend 120mL ensure plus high protein 4x daily with medpass and Pramod BID with meals to provide supplemental energy and help promote wound healing. When medically able recommend via PEG tube, enteral nutrition of Jevity 1.5 at 50mL/hr x24 hours Lab / Micro Data 08/12/24 04:25 08/12/24 08:15 Labs: Laboratory Results - last 24 hr 08/11/24 14:49: Glucose 99 08/11/24 20:20: Glucose 99 08/12/24 02:10: Glucose 109 H 08/12/24 04:25: WBC 5.1, RBC 2.43 L, Hgb 6.6 L, Hct 21.7 L, MCV 89.3, MCH 27.2, MCHC 30.4 L, RDW Std Deviation 63.5 H, RDW Coeff of Monika 19.9 H, Plt Count 107 L, MPV 10.1, Immature Gran % (Auto) 1.600 H, Neut % (Auto) 78.2 H, Lymph % (Auto) 10.1 L, [place] % (Auto) 6.3, Eos % (Auto) 3.4, Baso % (Auto) 0.4, Absolute Neuts (auto) 4.0, Absolute Lymphs (auto) 0.51 L, Nucleated RBC % 0, Sodium 136, Potassium 4.0, Chloride 106, Carbon Dioxide 22.3, Anion Gap 8, BUN 27 H, C reatinine 1.47 H, Estim Creat Clear Calc 26.31 L, Est GFR (MDRD) Non-Af 40 L, BUN/Creatinine Ratio 18.0, Glucose 104 H, Calcium 7.6 08/12/24 08:15: Glucose 85 08/12/24 10:20: Blood Type O POSITIVE, Antibody Screen POSITIVE, Crossmatch See Detail Micro: Microbiology 08/07/24 00:30 Stool C. difficile GDH Antigen & Toxins - Final 08/07/24 00:30 Stool Clostridioides difficile (PCR) - Final Physical Exam Narrative Alert, awake oriented x 3 no obvious distress s1s2 no murmurs lungs clear abdomen soft. PEG tube intact + b/l pedal edema Tunneled HD catheter dressing clean, dry and intact, access for dialysis Assessment & Plan Assessment/Plan (1) End stage renal disease: PLAN: - ESRD on hemodialysis Monday at [facility]. HD today. see orders. Attempting ~2L UF with HD today. BPs drop during HD and received midodrine today, can also decrease BFR as needed if bps drop. Bps acceptable and even on higher side when not on dialysis. She is getting amlodipine 10mg HS, metoprolol 25mg bid. Continue to hold metoprolol am of HD. Can give midodrine prn pre and during HD for SBP <120 at start of HD. - Anemia of chronic disease; patient receives DENISE and iron at outpatient dialysis. Hgb 6.6 today, getting prbc - UGI bleed 2/2 ulceration from dislodged PEG tube. Tolerating TF now. On PPI discussed assessment and plan with Dr. Torres
[2024-08-12] MEDS: Menthol/Lanolin/Calamine/Znox 113 GM Tube 1 APPLIC TOPICAL ×3 (11:40→21:32)
[2024-08-12] MEDS: Jevity 1.5 1,000 ML 50 ML GT (11:40)
[2024-08-12] MEDS: Folic Acid/Vitamin B Comp W-C 1 Capsule 1 CAP PO (13:19)
[2024-08-12] MEDS: Dronabinol 2.5 MG Capsule PO ×2 (13:19→18:25)
[2024-08-12 15:12] LABS: Glucose 113 mg/dL (70-99)
[2024-08-12] MEDS: Juven (unflavored) Packet 1 PACKET PO (18:25)
[2024-08-12 19:05] LABS: Bedside Glucose 61 mg/dL (74-106)
[2024-08-12 20:24] LABS: Glucose 102 mg/dL (70-99)
[2024-08-12] MEDS: Morphine 2 MG/ML Syringe IV (20:35)
[2024-08-12] MEDS: Dextrose 5%/0.9% NaCl 1,000 ML 35 ML IV (20:41)
[2024-08-12] MEDS: Atorvastatin Calcium 20 MG Tablet PO (21:33)
[2024-08-12] MEDS: Mirtazapine 15 MG Tablet PO (21:33)
[2024-08-12] MEDS: amLODIPine 10 MG Tablet PO (21:33)
[2024-08-12] MEDS: Metoprolol Tartrate 25 MG Tablet PO (21:33)
[2024-08-12] MEDS: Pantoprazole Sodium 40 MG Tablet PO (21:34)
[2024-08-12] MEDS: Thiamine Hydrochloride 100 MG Tablet PO (21:34)
[2024-08-13] MEDS: Morphine 2 MG/ML Syringe IV (00:17)
[2024-08-13] MEDS: Acetaminophen 325 MG Tablet 650 MG PO ×2 (00:17→14:40)
[2024-08-13 01:27] LABS: Bedside Glucose 93 mg/dL (74-106)
[2024-08-13 02:47] LABS: Glucose 103 mg/dL (70-99)
[2024-08-13 04:00] VITALS: BP 124/68; PULSE 96; RESP 20; TEMP 36.9; O2SAT 100; O2SAT 99
[2024-08-13] MEDS: Levothyroxine 100 MCG Tablet 200 MCG PO (06:10)
[2024-08-13 06:40] LABS: Bedside Glucose 88 mg/dL (74-106)
[2024-08-13 09:06] VITALS: O2SAT 95
[2024-08-13 09:18] LABS: Absolute Neutrophil Count 3.4 X10^3/uL (2.0-7.7); Basophil# 0.05 X10^3/uL; Basophil% 1.1 % (0-1); Eosinophil# 0.16 X10^3/uL; Eosinophils% 3.4 % (0-5); Hematocrit 26.7 % (37-47); Hemoglobin 8.1 g/dL (12.0-15.0); Lymphocyte % 12.9 % (19-41); Mean Corp Hgb Conc 30.3 g/dL (32-36); Mean Corpuscular Hgb 27.3 pg (27.0-32.0); Mean Corpuscular Volume 89.9 fL (81-99); Mean Platelet Vol. 10.2 fl (6.2-12.0); Monocyte# 0.38 X10^3/uL; Monocyte% 8.2 % (0-10); NRBC Flagged by Analyzer 0 % (0-5); Neutrophil # 3.35 X10^3/uL (2.7-7.7); POSITIVE DIFFERENTIAL YES; Platelet Count 120 K/mm3 (150-450); RBC Distribution Width SD 62.6 fl (35.1-43.9); Red Blood Count 2.97 M/mm3 (4.2-5.4); White Blood Count 4.7 K/mm3 (4.4-11.0)
[2024-08-13 09:47] LABS: Anion Gap 7 (5-15); BUN 28 mg/dL (4-19); BUN/Creat Ratio 22.7 RATIO (10-20); Calcium,Total 7.8 mg/dL (7.6-11.0); Carbon Dioxide 23.8 mmol/L (21.0-32.0); Chloride 106 mmol/L (98-108); Creatinine, Serum 1.21 mg/dL (0.70-1.20); EST Glomerular Filtration Rate 51 (>60); Estimated Creatinine Clearance 30.44 ml/min (50-250); Glucose 85 mg/dL (70-99); Potassium 4.3 mmol/L (3.3-5.1); Sodium Level 137 mmol/L (133-145)
--- NOTE | 2024-08-13 10:13 | TREXTCAR_ITS ---
Diet Diet Order/Speech Therapy: 08/10/24 13:04 Diet: Transitional DC O2, CPAP, BIPAP needs Home O2 Discharge instructions: Yes Type of respiratory needs?: Oxygen Oxygen frequency: Continuous Continuous oxygen liters per minute: 3 Wound(s) coccyx: Wound Type: Pressure Injury Dressing Change: new foam dressing applied left lower abdomen: Wound Type: nonhealing wound Dressing Change: AntiMicrobial (Aquacel AG, etc) left great toe: Wound Type: dry eschar Right great toe: Wound Type: dry eschar Problem/Diagnosis (1) GI bleed: Status: Acute Code(s): K92.2 - Gastrointestinal hemorrhage, unspecified Plan: 2/2 ulceration from dislodged PEG tube. change pantoprazole to PO BID. (2) ABLA (acute blood loss anemia): Status: Acute Code(s): D62 - Acute posthemorrhagic anemia Plan: 2/2 GI bleed. Improved after transfusion. Monitor. Currently stable. 08/12: Hemoglobin dropped to 6.6. Monitor PRBC ordered. (3) Abnormal CT of the abdomen: Status: Acute Code(s): R93.5 - Abnormal findings on diagnostic imaging of other abdominal regions, including retroperitoneum Plan: CT showes gastrostomy tube noted within the stomach. No ellie evidence of contrast extravasation. Fluid around the gastrostomy tube, outside stomach which appears to be increase in his prior examination. This may represent leakage of gastric contents versus increasing intra-abdominal collection. Complex abdominal fluid collection remain largest collection seen when in the right retroperitoneum. Appears overall increased since prior examination. 08/07: I discussed with Dr. Gallegos who recommended percutaneous drain. Spoke with Dr. Haas who states that there is a lot of bowel that would make percutaneous drain much more complex and risky. He advised against percutaneous drain but it I recommend follow-up CAT scan about a week's time to see if there is been any increased fluid collection that may be more amenable to percutaneous drain. 08/08: worsening abdominal pain during the day. CT showed no acute changes. 08/11: stable. No s/s of infection. DC pip/tazo. Follow up CT in 1-2 months, if not worsening. 08/12: No fever or signs of infection. Completed antibiotic as mentioned above (4) Diarrhea: Status: Acute Code(s): R19.7 - Diarrhea, unspecified Plan: Positive for C. difficile antigen but negative for toxin so not active C. difficile. Likely due to the tube feeds and poor nutrition overall. Will add loperamide to see if we can slow her down. Ongoing, but improving. Continue FMT for now. (5) Hypoglycemia: Status: Acute Code(s): E16.2 - Hypoglycemia, unspecified Plan: 08/12: Glucose low normal. Glucose 85 today, 104 in the morning, 109. A1c ordered for tomorrow a.m. (6) Raynaud disease: Status: Acute Code(s): I73.00 - Raynaud's syndrome without gangrene Plan: already on 5mg/d of amlodipine. Amlodipine was increased to 10 mg. Unclear if this is the reason for the discrepancy in the glucose readings. Plan Severe protein-calorie malnutrition: * PEG placed on 07/24. Repeat EGD on showed dislodged gastrostomy tube with the bumper buried in the cardia with large defect. Defect repaired. * DANIEL Higgins Friend 08/05, ok to use PEG tube, but with continuous infusion rather than bolus feedings. Will continue at 20cc/h for now. Reevaluated in AM. No need for PICC/TPN at this time. * 08/06: advanced tube feeds to 30cc/h. * 08/07: Continue the tube feeds at current rate. Also continue with clear liquid diet for now given the CT findings from the . * 08/08: advance diet to fulls. Increase tube feed rate to 50cc/h. Later, made NPO due to worsening abdominal pain. * 08/09: resume Jevity 1.5 at 30cc/h, resume full liquid diet. * 08/10: increase Jevity 1.5 to 50cc/h, advance diet to transitional. If diarrhea continue, may need nutrition to determine if another supplement may be better tolerated. Chronic Open abdominal wall wound: * Ongoing since February and patient did have a wound VAC at that time. Wound care following. Follow up with wound care as outpt. End stage renal disease: * Secondary to ATN from hemorrhagic shock and never had recovery. Patient on dialysis every Monday. Nephrology following. Chronic conditions * Factor V Leiden deficiency hold off on her aspirin for now. * Hypertension: Continue with amlodipine and metoprolol titrate. * Hypothyroidism: Continue levothyroxine * History of C. difficile: Does not appear to have any active symptoms at this time. * Depression: Continue sertraline. 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 Expectant management at this time VTE prophylaxis with SCDs for now Disposition: back to SNF if continues tolerate diet and tube feeds, tube feed induced diarrhea improved and whether patient can go to SNF covered by insurance v private pay. I feel the patient would benefit from skilled care as her overall clinical condition has improved. Allergies/Procedures Done in Hospital Allergies iodine Allergy (Intermediate, Verified 07/31/24 11:46) Nausea shellfish derived Allergy (Intermediate, Verified 07/31/24 11:46) Nausea Type of Care/Length of Stay Estimated LOS: More Than 30 Days Type of Care Needed: Intermediate Rehab Potential: Fair Prognosis: Fair Additional Orders/Day of Discharge Day of Discharge: 08/13/24 Dietary and Speech Recommendations Dietitian Recommendations/Changes: 1. Advance diet as tolerated to Regular as medically able to help optimize oral intake. 2. Will order Pramod BID with medpass to promote wound healing. 3. Will continue Jevity 1.5 Min at goal rate 50ml/hr goal rate via PEG with free water flushes. 4. Trend weights closely. Discharge Plan Admission Admit Date/Time: 07/31/24 15:42 Primary Reason for Your Visit: GI bleed. Gastric ulcer from PEG tube. Severe protein calorie malnutritio Attending Provider: Nikolas Magaña Primary Care Provider: Ethan Rodriguez Consulting Providers: Angie Torres; Kvng Watkins; Mar Mead; Judd Galvin Discharge Orders/Prescriptions Prescriptions: New loperamide 2 mg Capsule 2 mg PO Q4H PRN (Reason: DIARRHEA) Qty: 0 0RF Rx Instructions: For about 1 week as needed for diarrhea ascorbic acid (vitamin C) 500 mg Tablet 500 mg PO DAILY Qty: 0 0RF pantoprazole 40 mg Tablet,Delayed Release (Dr/Ec) 40 mg PO BID Qty: 0 2RF Rx Instructions: For total of 3 months to heal gastric ulcer ferrous sulfate 325 mg (65 mg iron) tablet 325 mg PO QODAY Qty: 30 2RF Continued cyclobenzaprine 5 mg tablet 5 mg PO TID PRN (Reason: MUSCLE SPASMS) acetaminophen 325 mg tablet 650 mg PO Q4H PRN (Reason: fever) guaifenesin 100 mg/5 mL liquid 200 mg PO Q4H PRN (Reason: cough) dronabinol [Marinol] 2.5 mg capsule 2.5 mg PO BID Rx Instructions: administer before lunch and evening meal/dinner sertraline 25 mg tablet 25 mg PO DAILY Renal Vitamin 0.8 mg tablet 1 tab PO DAILY polyethylene glycol 3350 17 gram/dose powder 17 g PO QODAY Rx Instructions: EVERY OTHER DAY AT BED TIME ondansetron 4 mg tablet,disintegrating 4 mg PO DAILY PRN (Reason: nausea and vomiting) docusate sodium 100 mg tablet 100 mg PO BID PRN (Reason: constipation) midodrine 10 mg tablet 10 mg PO DAILY PRN (Reason: for SBP lower than 110 during dialysis tx) Rx Instructions: for SBP lower than 110 during dialysis tx atorvastatin 20 mg tablet 20 mg PO QHS metoprolol tartrate 25 mg tablet 25 mg PO BID oxycodone 5 mg tablet 5 mg PO Q6H PRN (Reason: pain) thiamine HCl (vitamin B1) 100 mg tablet 100 mg PO BID amlodipine 5 mg tablet 5 mg PO QHS levothyroxine 200 mcg tablet 200 mcg PO DAILY sennosides-docusate sodium [Senna Plus] 8.6-50 mg tablet 1 tab-cap PO DAILY PRN (Reason: constipation) Culturelle 10 billion cell capsule 1 cap PO DAILY aluminum-magnesium hydroxide 200-200 mg/5 mL suspension 30 ml PO Q4H PRN (Reason: GI DISTRESS) bisacodyl 10 mg suppository 10 mg OR DAILY PRN (Reason: constipation) glucagon HCl [Glucagon (HCl) Emergency Kit] 1 mg recon soln 1 mg IM Q20M PRN (Reason: hypoglycemia) Rx Instructions: until target blood sugar attained cholecalciferol (vitamin D3) 125 mcg (5,000 unit) capsule 125 mcg PO DAILY Changed mirtazapine 30 mg tablet 15 mg PO QHS 30 Days Qty: 0 0RF Held aspirin [Adult Aspirin Regimen] 81 mg tablet,delayed release (DR/EC) 81 mg PO DAILY Hold Instructions: Hold for 1 week. Discontinued heparin (porcine) 5,000 unit/mL (1 mL) cartridge 5,000 unit subcut Q8H ascorbic acid (vitamin C) 500 mg capsule 500 mg PO DAILY famotidine 10 mg tablet 20 mg PO DAILY magnesium hydroxide [Dulcolax (magnesium hydroxide)] 400 mg/5 mL suspension 30 ml PO DAILY PRN (Reason: stomach upset) Referrals / Follow Up: Angie Torres MD [Med Staff - Consulting] - Within 1 Month Ethan Rodriguez MD [Primary Care Provider] - Nick Gallegos DO [Med Staff - Active Staff] - Within 1 Month Disposition Disposition (needs filled in before D/C Order can be placed): Long-Term Facility
[2024-08-13 10:19] LABS: Hemoglobin A1c 5.1 % (<=5.6)
--- NOTE | 2024-08-13 10:23 | WOUNDNOTE ---
wound photo: sacrum
[2024-08-13] MEDS: Juven (unflavored) Packet 1 PACKET PO (10:39)
[2024-08-13] MEDS: Lactobacillis Acidophilus 1 CAP PO (10:42)
[2024-08-13 10:45] VITALS: BP 139/73; PULSE 94; RESP 18; TEMP 37.2; O2SAT 100
[2024-08-13] MEDS: Folic Acid/Vitamin B Comp W-C 1 Capsule 1 CAP PO (10:45)
[2024-08-13] MEDS: Metoprolol Tartrate 25 MG Tablet PO (10:45)
[2024-08-13] MEDS: Menthol/Lanolin/Calamine/Znox 113 GM Tube 1 APPLIC TOPICAL ×2 (10:45→13:08)
[2024-08-13] MEDS: Thiamine Hydrochloride 100 MG Tablet PO (10:46)
[2024-08-13] MEDS: Cholecalciferol (Vit D3) 125 MCG CAPSULE (5,000 UNITS) PO (10:46)
[2024-08-13] MEDS: Pantoprazole Sodium 40 MG Tablet PO (10:46)
[2024-08-13] MEDS: Ascorbic Acid 500 MG Tablet PO (10:46)
[2024-08-13] MEDS: Sertraline 50 MG Tablet 25 MG PO (10:47)
[2024-08-13] MEDS: Jevity 1.5 1,000 ML 50 ML GT (10:54)
--- NOTE | 2024-08-13 11:09 | PCM.PN.REN ---
Subjective Subjective Resting in bed, possible transfer back to [facility] today Objective Data Objective Data Vital Signs: Vital Signs Temp Pulse Resp BP Pulse Ox O2 Del Method O2 Flow Rate 98.4 F 94 20 H 124/68 H 95 Nasal Cannula 3.5 08/13/24 04:00 08/13/24 10:45 08/13/24 04:00 08/13/24 04:00 08/13/24 09:06 08/13/24 09:06 08/13/24 09:06 FiO2 95 08/06/24 11:09 Oxygen Flow Rate (L/min) 3.5 Oxygen Delivery Method Nasal Cannula Weight: 40 kg Body Mass Index (BMI) 11.9 Intake & Output: Intake and Output for Last 24 Hours 08/11/24 08/12/24 08/13/24 23:59 23:59 23:59 Intake Total 2483.75 / 2653.75 2900 / 3290 1600 / 1600 Output Total 320 / 420 2130 / 2230 200 / 200 Balance 2163.75 / 2233.75 770 / 1060 1400 / 1400 Medical Nutrition Assessment Dietitian: Malnutrition Criteria Met Start: 08/01/24 12:11 Freq: Status: Active Protocol: Document 08/01/24 12:12 LO (Rec: 08/01/24 12:12 LO [id number]) Nutrition Malnutrition Evidence of Yes Malnutrition Exists Malnutrition (severe Chronic ): Evidenced By Suboptimal Energy Intake (Severe),Weight Loss (Severe) Intake Problem Increased Nutrient Needs (specify) Etiology protein related to increased demand for healing Signs/Symptoms as evidenced by left lower abdominal wound and coccyx pressure injury Status Active Problem Clinical Problem Chronic Disease or Condition Related Malnutrition Etiology severe related to suboptimal appetite and multile medical problems over the past 6 months including c. diff and AAA Signs/Symptoms as evidenced by 10.8kg (18.7%) unintentional weight loss in ~5 months and PO intakes meeting <75% of estimated nutrition needs for ~5 months; BMI 14 Status Active Problem Recommendation Dietitian Recommend advancing diet as tolerated to Regular when Recommendations/ medically able to optimize oral intakes. Changes Recommend 120mL ensure plus high protein 4x daily with medpass and Pramod BID with meals to provide supplemental energy and help promote wound healing. When medically able recommend via PEG tube, enteral nutrition of Jevity 1.5 at 50mL/hr x24 hours Lab / Micro Data 08/13/24 08:55 08/13/24 08:55 Labs: Laboratory Results - last 24 hr 08/12/24 10:20: Blood Type O POSITIVE, Antibody Screen POSITIVE H, Antibody Identification ANTI-C 08/12/24 10:20: Antibody Identification ANTI-Fya 08/12/24 10:20: Antibody Identification Cancelled, Crossmatch See Detail 08/12/24 14:15: Glucose 113 H 08/12/24 18:28: POC Glucose 61 L 08/12/24 19:57: Glucose 102 H 08/13/24 00:05: POC Glucose 93 08/13/24 02:24: Glucose 103 H 08/13/24 06:13: POC Glucose 88 08/13/24 08:55: WBC 4.7, RBC 2.97 L, Hgb 8.1 L, Hct 26.7 L, MCV 89.9, MCH 27.3, MCHC 30.3 L, RDW Std Deviation 62.6 H, RDW Coeff of Monika 20.0 H, Plt Count 120 L, MPV 10.2, Immature Gran % (Auto) 2.400 H, Neut % (Auto) 72.0 H, Lymph % (Auto) 12.9 L, Aurora % (Auto) 8.2, Eos % (Auto) 3.4, Baso % (Auto) 1.1 H, Absolute Neuts (auto) 3.4, Absolute Lymphs (auto) 0.60 L, Nucleated RBC % 0, Sodium 137, Potassium 4.3, Chloride 106, Carbon Dioxide 23.8, Anion Gap 7, BUN 28 H, Creatinine 1.21 H, Estim Creat Clear Calc 30.44 L, Est GFR (MDRD) Non-Af 51 L, BUN/Creatinine Ratio 22.7 H, Glucose 85, Hemoglobin A1c 5.1 L, Calcium 7.8 Micro: Microbiology 08/07/24 00:30 Stool C. difficile GDH Antigen & Toxins - Final 08/07/24 00:30 Stool Clostridioides difficile (PCR) - Final Physical Exam Narrative Alert, awake oriented x 3 no obvious distress s1s2 no murmurs lungs clear abdomen soft. PEG tube intact + b/l pedal edema Tunneled HD catheter dressing clean, dry and intact Assessment & Plan Assessment/Plan (1) End stage renal disease: PLAN: - ESRD on hemodialysis Monday at [facility] center. No acute indication for [employer] today, patient dialyzed yesterday. Next dialysis will be tomorrow, orders placed. Patient having intradialytic hypotension and can take midodrine 20 mg pre-HD and 10 mg during HD as needed for hypotension. Bps acceptable and even on higher side when not on dialysis. She is getting amlodipine 10mg HS, metoprolol 25mg bid. Continue to hold metoprolol am of HD. Patient is essentially anuric. - Anemia of chronic disease; patient receives DENISE and iron at outpatient dialysis. Hgb improved post PRBC. Patient will also receive Mircera and iron in outpatient dialysis center. - UGI bleed 2/2 ulceration from dislodged PEG tube. Tolerating TF now. On PPI -Disposition; possible discharge back to ECF today. discussed assessment and plan with Dr. Torres
[2024-08-13] MEDS: Dronabinol 2.5 MG Capsule PO ×2 (11:20→16:18)
--- NOTE | 2024-08-13 11:25 | DS.PCM_ITS ---
Providers Date of Admission: 07/31/24 Date of Discharge: 08/13/24 Primary Care Physician: Dr. 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 change pantoprazole to PO BID. (2) ABLA (acute blood loss anemia): Status: Acute Code(s): D62 - Acute posthemorrhagic anemia Plan: 2/2 GI bleed. Improved after transfusion. Monitor. Currently stable. 08/12: Hemoglobin dropped to 6.6. Monitor PRBC ordered. 08/13: Hemoglobin improved to 8.1. Had 1 unit transfusion yesterday. Posttransfusion low-grade temperature resolved. (3) Abnormal CT of the abdomen: Status: Acute Code(s): R93.5 - Abnormal findings on diagnostic imaging of other abdominal regions, including retroperitoneum Plan: CT showes gastrostomy tube noted within the stomach. No ellie evidence of contrast extravasation. Fluid around the gastrostomy tube, outside stomach which appears to be increase in his prior examination. This may represent leakage of gastric contents versus increasing intra-abdominal collection. Complex abdominal fluid collection remain largest collection seen when in the right retroperitoneum. Appears overall increased since prior examination. 08/07: I discussed with Dr. Gallegos who recommended percutaneous drain. Spoke with Dr. Haas who states that there is a lot of bowel that would make percutaneous drain much more complex and risky. He advised against percutaneous drain but it I recommend follow-up CAT scan about a week's time to see if there is been any increased fluid collection that may be more amenable to percutaneous drain. 08/08: worsening abdominal pain during the day. CT showed no acute changes. 08/11: stable. No s/s of infection. DC pip/tazo. Follow up CT in 1-2 months, if not worsening. 08/12: No fever or signs of infection. Completed antibiotic as mentioned above 08/13: No acute issues. Vital signs within normal limit. Low-grade temperature 100.2 ?F, one-time last night but afebrile. Probably after blood transfusion yesterday. May be noninfectious cause of low-grade fever. (4) Diarrhea: Status: Acute Code(s): R19.7 - Diarrhea, unspecified Plan: Positive for C. difficile antigen but negative for toxin so not active C. difficile. Likely due to the tube feeds and poor nutrition overall. Will add loperamide to see if we can slow her down. Ongoing, but improving. Continue FMT for now. (5) Hypoglycemia: Status: Acute Code(s): E16.2 - Hypoglycemia, unspecified Plan: 08/12: Glucose low normal. Glucose 85 today, 104 in the morning, 109. A1c ordered for tomorrow a.m. 08/13: A1c 5.1%. Glucose 85. (6) Raynaud disease: Status: Acute Code(s): I73.00 - Raynaud's syndrome without gangrene Plan: already on 5mg/d of amlodipine. Amlodipine was increased to 10 mg. Unclear if this is the reason for the discrepancy in the glucose readings. (7) End stage renal disease: Status: Inactive Code(s): N18.6 - End stage renal disease Plan Severe protein-calorie malnutrition: * PEG placed on 07/24. Repeat EGD on showed dislodged gastrostomy tube with the bumper buried in the cardia with large defect. Defect repaired. * DANIEL Phillip. Friend 08/05, ok to use PEG tube, but with continuous infusion rather than bolus feedings. Will continue at 20cc/h for now. Reevaluated in AM. No need for PICC/TPN at this time. * 08/06: advanced tube feeds to 30cc/h. * 08/07: Continue the tube feeds at current rate. Also continue with clear liquid diet for now given the CT findings from the . * 08/08: advance diet to fulls. Increase tube feed rate to 50cc/h. Later, made NPO due to worsening abdominal pain. * 08/09: resume Jevity 1.5 at 30cc/h, resume full liquid diet. * 08/10: increase Jevity 1.5 to 50cc/h, advance diet to transitional. If diarrhea continue, may need nutrition to determine if another supplement may be better tolerated. Chronic Open abdominal wall wound: * Ongoing since February and patient did have a wound VAC at that time. Wound care following. Follow up with wound care as outpt. End stage renal disease: * Secondary to ATN from hemorrhagic shock and never had recovery. Patient on dialysis every Monday. Nephrology following. Chronic conditions * Factor V Leiden deficiency hold off on her aspirin for now. * Hypertension: Continue with amlodipine and metoprolol titrate. * Hypothyroidism: Continue levothyroxine * History of C. difficile: Does not appear to have any active symptoms at this time. * Depression: Continue sertraline. 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 Expectant management at this time VTE prophylaxis with SCDs for now Disposition: back to SNF if continues tolerate diet and tube feeds, tube feed induced diarrhea improved and whether patient can go to SNF covered by insurance v private pay. I feel the patient would benefit from skilled care as her overall clinical condition has improved. Medications at Discharge Home Medications aspirin 81 mg tablet,delayed release (Adult Aspirin Regimen) 81 mg PO DAILY 03/11/24 Held on 08/13/24. Instructions: Hold for 1 week. atorvastatin 20 mg tablet 20 mg PO QHS 03/11/24 metoprolol tartrate 25 mg tablet 25 mg PO BID 03/11/24 thiamine HCl (vitamin B1) 100 mg tablet 100 mg PO BID 04/11/24 cyclobenzaprine 5 mg tablet 5 mg PO TID PRN MUSCLE SPASMS 06/05/24 Lactobacillus rhamnosus GG 10 billion cell capsule (Culturelle) 1 cap PO DAILY 07/18/24 acetaminophen 325 mg tablet 650 mg PO Q4H PRN fever 07/18/24 aluminum-magnesium hydroxide 200 mg-200 mg/5 mL oral suspension 30 ml PO Q4H PRN GI DISTRESS 07/18/24 amlodipine 5 mg tablet 5 mg PO QHS 07/18/24 docusate sodium 100 mg tablet 100 mg PO BID PRN constipation 07/18/24 dronabinol 2.5 mg capsule (Marinol) 2.5 mg PO BID 07/18/24 guaifenesin 100 mg/5 mL oral liquid 200 mg PO Q4H PRN cough 07/18/24 levothyroxine 200 mcg tablet 200 mcg PO DAILY 07/18/24 midodrine 10 mg tablet 10 mg PO DAILY PRN for SBP lower than 110 during dialysis tx 07/18/24 ondansetron 4 mg disintegrating tablet 4 mg PO DAILY PRN nausea and vomiting 07/18/24 oxycodone 5 mg tablet 5 mg PO Q6H PRN pain 07/18/24 polyethylene glycol 3350 17 gram/dose oral powder 17 g PO QODAY 07/18/24 sennosides 8.6 mg-docusate sodium 50 mg tablet (Senna Plus) 1 tab-cap PO DAILY PRN constipation 07/18/24 sertraline 25 mg tablet 25 mg PO DAILY 07/18/24 vitamin B complex-vitamin C-folic acid 0.8 mg tablet (Renal Vitamin) 1 tab PO DAILY 07/18/24 bisacodyl 10 mg rectal suppository 10 mg RI DAILY PRN constipation 07/31/24 cholecalciferol (vitamin D3) 125 mcg (5,000 unit) capsule 125 mcg PO DAILY 07/31/24 glucagon HCl 1 mg solution for injection (Glucagon (HCl) Emergency Kit) 1 mg IM Q20M PRN hypoglycemia 07/31/24 ascorbic acid (vitamin C) 500 mg tablet 500 mg PO DAILY #0 tabs 08/13/24 ferrous sulfate 325 mg (65 mg iron) tablet 325 mg PO QODAY #30 tabs 08/13/24 loperamide 2 mg capsule 2 mg PO Q4H PRN DIARRHEA #0 caps 08/13/24 mirtazapine 30 mg tablet 15 mg (1/2 x 30 mg) PO QHS 30 days #0 tabs 08/13/24 pantoprazole 40 mg tablet,delayed release 40 mg PO BID #0 tabs 08/13/24 Physical Exam Narrative Seen and examined. Blood pressure and heart rate in normal range. Afebrile. Hemoglobin 8.1 g%. Patient is severely malnourished with the skin on bone apprehensive Physical exam General: Alert, Oriented x3, Cooperative, severely chronic malnourished. BMI 12.6 EKG pulm at risk HEENT: Atraumatic, PERRLA, EOMI, Normocephalic Oral: No Gingival or Mucosal Lesions/ Ulcerations Neck: Supple, No JVD, Negative Carotid Bruits Chest wall/Lungs: Air entry diminished in bilateral lung bases. No crepitation/rhonchi Cardiovascular: Regular rate, Regular Rhythm, Normal S1, Normal S2, No M/G/R Abdomen: PEG tube. Dressing on the left upper quadrant, left upper abdominal wall ulcer, healing with granulation tissue. Bowel Sounds Present, soft, nontender : No dysuria. No renal angle tenderness. No suprapubic tenderness. Extremities: No edema, Capillary Refill Less than 3 Seconds Skin: Tiny coccygeal skin tear, stage II present on admission Musculoskeletal: No Tenderness to Palpation of Joints or Extremities, chronic severe muscle atrophy. ROM restricted Neurological: Cranial nerves II-XII grossly intact, DTR 2+/4. Muscle power 4/5 at major joints Psych/Mental Status: Flat affect Medical Records Data Medical Nutrition Assessment Dietitian: Malnutrition Criteria Met Start: 08/01/24 12:11 Freq: Status: Active Protocol: Document 08/01/24 12:12 LO (Rec: 08/01/24 12:12 [id number]) Nutrition Malnutrition Evidence of Yes Malnutrition Exists Malnutrition (severe Chronic ): Evidenced By Suboptimal Energy Intake (Severe),Weight Loss (Severe) Intake Problem Increased Nutrient Needs (specify) Etiology protein related to increased demand for healing Signs/Symptoms as evidenced by left lower abdominal wound and coccyx pressure injury Status Active Problem Clinical Problem Chronic Disease or Condition Related Malnutrition Etiology severe related to suboptimal appetite and multile medical problems over the past 6 months including c. diff and AAA Signs/Symptoms as evidenced by 10.8kg (18.7%) unintentional weight loss in ~5 months and PO intakes meeting <75% of estimated nutrition needs for ~5 months; BMI 14 Status Active Problem Recommendation Dietitian Recommend advancing diet as tolerated to Regular when Recommendations/ medically able to optimize oral intakes. Changes Recommend 120mL ensure plus high protein 4x daily with medpass and Pramod BID with meals to provide supplemental energy and help promote wound healing. When medically able recommend via PEG tube, enteral nutrition of Jevity 1.5 at 50mL/hr x24 hours Weight / BMI Weight Weight: 88 lb 2.958 oz Body Mass Index (BMI) 11.9 ABG / Lab / Microbiology Data 08/13/24 08:55 08/13/24 08:55 Laboratory: Laboratory Results - last 24 hr 08/12/24 10:20: Blood Type O POSITIVE, Antibody Screen POSITIVE H, Antibody Identification ANTI-C 08/12/24 10:20: Antibody Identification ANTI-Fya 08/12/24 10:20: Antibody Identification Cancelled, Crossmatch See Detail 08/12/24 14:15: Glucose 113 H 08/12/24 18:28: POC Glucose 61 L 08/12/24 19:57: Glucose 102 H 08/13/24 00:05: POC Glucose 93 08/13/24 02:24: Glucose 103 H 08/13/24 06:13: POC Glucose 88 08/13/24 08:55: WBC 4.7, RBC 2.97 L, Hgb 8.1 L, Hct 26.7 L, MCV 89.9, MCH 27.3, MCHC 30.3 L, RDW Std Deviation 62.6 H, RDW Coeff of Monika 20.0 H, Plt Count 120 L, MPV 10.2, Immature Gran % (Auto) 2.400 H, Neut % (Auto) 72.0 H, Lymph % (Auto) 12.9 L, [place] % (Auto) 8.2, Eos % (Auto) 3.4, Baso % (Auto) 1.1 H, Absolute Neuts (auto) 3.4, Absolute Lymphs (auto) 0.60 L, Nucleated RBC % 0, Sodium 137, Potassium 4.3, Chloride 106, Carbon Dioxide 23.8, Anion Gap 7, BUN 28 H, C reatinine 1.21 H, Estim Creat Clear Calc 30.44 L, Est GFR (MDRD) Non-Af 51 L, B UN/Creatinine Ratio 22.7 H, Glucose 85, Hemoglobin A1c 5.1 L, Calcium 7.8 Microbiology: Microbiology 08/07/24 00:30 Stool C. difficile GDH Antigen & Toxins - Final 08/07/24 00:30 Stool Clostridioides difficile (PCR) - Final D/C Instructions DC O2, CPAP, BIPAP Needs PSN CPAP & BiPAP: BiPAP & CPAP Settings per PSN Fraction of Inspired Oxygen ( 95 08/06/24 11:09 FIO2) Home O2 Discharge instructions: Yes Type of respiratory needs?: Oxygen Oxygen frequency: Continuous Continuous oxygen liters per minute: 3 DC home with Oxygen: Yes Home O2 MD Review: I have reviewed the oxygen testing, and the patient qualifies for home oxygen equipment and portability. The patient is mobile in the home and the community. Meaningful Use Info Meaningful Use Meaningful Use Diagnoses (Choose all that apply): None applicable Ischemic Stroke Statin Dosing Therapy Reference: STATIN DOSE THERAPY REFERENCE: * Patients > 75 years receive moderate or high dose statin therapy. * Patients 75 years or YOUNGER should receive HIGH intensity statin dose unless contraindicated. You will be required to document reason for non-treatment if statin daily dose does not meet guidelines. HIGH DOSE STATIN THERAPY DAILY Atorvastatin > than or = to 40 mg Rosuvastatin > than or = to 20 mg Amlodipine + Atorvastatin > than or = to 2.5/40 mg Ezetimibe + Simvastatin 10/80 mg Simvastatin 80mg Discharge Plan Admission Admit Date/Time: 07/31/24 15:42 Primary Reason for Your Visit: GI bleed. Gastric ulcer from PEG tube. Severe protein calorie malnutritio Attending Provider: Nikolas Magaña Primary Care Provider: Ethan Rodriguez Consulting Providers: Angie Torres; Kvng Watkins; Mar Mead; Judd Galvin Discharge Orders/Prescriptions Prescriptions: New loperamide 2 mg Capsule 2 mg PO Q4H PRN (Reason: DIARRHEA) Qty: 0 0RF Rx Instructions: For about 1 week as needed for diarrhea ascorbic acid (vitamin C) 500 mg Tablet 500 mg PO DAILY Qty: 0 0RF pantoprazole 40 mg Tablet,Delayed Release (Dr/Ec) 40 mg PO BID Qty: 0 2RF Rx Instructions: For total of 3 months to heal gastric ulcer ferrous sulfate 325 mg (65 mg iron) tablet 325 mg PO QODAY Qty: 30 2RF Continued cyclobenzaprine 5 mg tablet 5 mg PO TID PRN (Reason: MUSCLE SPASMS) acetaminophen 325 mg tablet 650 mg PO Q4H PRN (Reason: fever) guaifenesin 100 mg/5 mL liquid 200 mg PO Q4H PRN (Reason: cough) dronabinol [Marinol] 2.5 mg capsule 2.5 mg PO BID Rx Instructions: administer before lunch and evening meal/dinner sertraline 25 mg tablet 25 mg PO DAILY Renal Vitamin 0.8 mg tablet 1 tab PO DAILY polyethylene glycol 3350 17 gram/dose powder 17 g PO QODAY Rx Instructions: EVERY OTHER DAY AT BED TIME ondansetron 4 mg tablet,disintegrating 4 mg PO DAILY PRN (Reason: nausea and vomiting) docusate sodium 100 mg tablet 100 mg PO BID PRN (Reason: constipation) midodrine 10 mg tablet 10 mg PO DAILY PRN (Reason: for SBP lower than 110 during dialysis tx) Rx Instructions: for SBP lower than 110 during dialysis tx atorvastatin 20 mg tablet 20 mg PO QHS metoprolol tartrate 25 mg tablet 25 mg PO BID oxycodone 5 mg tablet 5 mg PO Q6H PRN (Reason: pain) thiamine HCl (vitamin B1) 100 mg tablet 100 mg PO BID amlodipine 5 mg tablet 5 mg PO QHS levothyroxine 200 mcg tablet 200 mcg PO DAILY sennosides-docusate sodium [Senna Plus] 8.6-50 mg tablet 1 tab-cap PO DAILY PRN (Reason: constipation) Culturelle 10 billion cell capsule 1 cap PO DAILY aluminum-magnesium hydroxide 200-200 mg/5 mL suspension 30 ml PO Q4H PRN (Reason: GI DISTRESS) bisacodyl 10 mg suppository 10 mg RI DAILY PRN (Reason: constipation) glucagon HCl [Glucagon (HCl) Emergency Kit] 1 mg recon soln 1 mg IM Q20M PRN (Reason: hypoglycemia) Rx Instructions: until target blood sugar attained cholecalciferol (vitamin D3) 125 mcg (5,000 unit) capsule 125 mcg PO DAILY Changed mirtazapine 30 mg tablet 15 mg PO QHS 30 Days Qty: 0 0RF Held aspirin [Adult Aspirin Regimen] 81 mg tablet,delayed release (DR/EC) 81 mg PO DAILY Hold Instructions: Hold for 1 week. Discontinued heparin (porcine) 5,000 unit/mL (1 mL) cartridge 5,000 unit subcut Q8H ascorbic acid (vitamin C) 500 mg capsule 500 mg PO DAILY famotidine 10 mg tablet 20 mg PO DAILY magnesium hydroxide [Dulcolax (magnesium hydroxide)] 400 mg/5 mL suspension 30 ml PO DAILY PRN (Reason: stomach upset) Referrals / Follow Up: Angie Torres MD [Med Staff - Consulting] - Within 1 Month Ethan Rodriguez MD [Primary Care Provider] - Friend,DO Nick [Med Staff - Active Staff] - Within 1 Month Disposition Disposition (needs filled in before D/C Order can be placed): [facility] Charges/Coding Visit Charges Inpatient E&M: 24855 Disch Hosp >30min
--- NOTE | 2024-08-13 11:31 | CASEMGMT ---
Patient is ready for discharge back to [facility]. Physicians will transport patient via cot. Plan: d/c back to [facility] under intermediate level of care. Nori YOUSIF
[2024-08-13 11:45] LABS: Bedside Glucose 54 mg/dL (74-106)
[2024-08-13] MEDS: Glucagon 1 MG/ML Syringe IM (12:08)
--- NOTE | 2024-08-13 12:27 | PHA.DC.MR.R ---
Pharmacy [place] Med Reconciliation Pharmacy Service has performed discharge medication reconciliation for this patient. The patient's discharge medication list was reviewed for discrepancies and discrepancies were resolved. Medications at Discharge Home Medications aspirin 81 mg tablet,delayed release (Adult Aspirin Regimen) 81 mg PO DAILY 03/11/24 Held on 08/13/24. Instructions: Hold for 1 week. atorvastatin 20 mg tablet 20 mg PO QHS 03/11/24 metoprolol tartrate 25 mg tablet 25 mg PO BID 03/11/24 thiamine HCl (vitamin B1) 100 mg tablet 100 mg PO BID 04/11/24 cyclobenzaprine 5 mg tablet 5 mg PO TID PRN MUSCLE SPASMS 06/05/24 Lactobacillus rhamnosus GG 10 billion cell capsule (Culturelle) 1 cap PO DAILY 07/18/24 acetaminophen 325 mg tablet 650 mg PO Q4H PRN fever 07/18/24 aluminum-magnesium hydroxide 200 mg-200 mg/5 mL oral suspension 30 ml PO Q4H PRN GI DISTRESS 07/18/24 amlodipine 5 mg tablet 5 mg PO QHS 07/18/24 docusate sodium 100 mg tablet 100 mg PO BID PRN constipation 07/18/24 dronabinol 2.5 mg capsule (Marinol) 2.5 mg PO BID 07/18/24 guaifenesin 100 mg/5 mL oral liquid 200 mg PO Q4H PRN cough 07/18/24 levothyroxine 200 mcg tablet 200 mcg PO DAILY 07/18/24 midodrine 10 mg tablet 10 mg PO DAILY PRN for SBP lower than 110 during dialysis tx 07/18/24 ondansetron 4 mg disintegrating tablet 4 mg PO DAILY PRN nausea and vomiting 07/18/24 oxycodone 5 mg tablet 5 mg PO Q6H PRN pain 07/18/24 polyethylene glycol 3350 17 gram/dose oral powder 17 g PO QODAY 07/18/24 sennosides 8.6 mg-docusate sodium 50 mg tablet (Senna Plus) 1 tab-cap PO DAILY PRN constipation 07/18/24 sertraline 25 mg tablet 25 mg PO DAILY 07/18/24 vitamin B complex-vitamin C-folic acid 0.8 mg tablet (Renal Vitamin) 1 tab PO DAILY 07/18/24 bisacodyl 10 mg rectal suppository 10 mg [place] DAILY PRN constipation 07/31/24 cholecalciferol (vitamin D3) 125 mcg (5,000 unit) capsule 125 mcg PO DAILY 07/31/24 glucagon HCl 1 mg solution for injection (Glucagon (HCl) Emergency Kit) 1 mg IM Q20M PRN hypoglycemia 07/31/24 ascorbic acid (vitamin C) 500 mg tablet 500 mg PO DAILY #0 tabs 08/13/24 ferrous sulfate 325 mg (65 mg iron) tablet 325 mg PO QODAY #30 tabs 08/13/24 loperamide 2 mg capsule 2 mg PO Q4H PRN DIARRHEA #0 caps 08/13/24 mirtazapine 30 mg tablet 15 mg (1/2 x 30 mg) PO QHS 30 days #0 tabs 08/13/24 pantoprazole 40 mg tablet,delayed release 40 mg PO BID #0 tabs 08/13/24
[2024-08-13 12:40] LABS: Glucose 105 mg/dL (70-99)
--- NOTE | 2024-08-13 12:45 | CASEMGMT ---
Discharge Planning Discharge orders, signed med list, and transport time sent to [facility]. Physicians will transport pt by cot at 3p. Nursing, SW, pt, and her sister (Janette) updated. Joellen Billy DC Planning Asst.
[2024-08-13 12:46] LABS: Bedside Glucose 31 mg/dL (74-106)
[2024-08-13 12:46] LABS: Bedside Glucose 86 mg/dL (74-106)
[2024-08-13] MEDS: 0.9% Saline Lock 10 ML Syringe IV (13:08)
[2024-08-13] MEDS: Dextrose 10%-Water 50 ML IV (14:11)
[2024-08-13 14:36] VITALS: BP 144/69; PULSE 89; RESP 18; TEMP 37.2; O2SAT 100
[2024-08-13 15:12] LABS: Bedside Glucose 134 mg/dL (74-106)
[2024-08-13 16:43] LABS: Glucose 121 mg/dL (70-99)
--- NOTE | 2024-08-13 17:11 | NURSING ---
Report called to [facility] at [facility]
--- OUTSIDE RECORDS SUMMARY | 2025-08-28 07:27 | XMS RPT_ITS ---
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 Name Role Phone VENANCIO CORNEJO Attending Physician Unavail able YING SRINIVASAN Primary Care Physician Unav ailable DENNIS CLIFTON Unavailable Unavailable YING SRINIVASAN Primary Care Physician Unav ailable PROBLEMS DATE TYPE CONDITION / CODE ATTENDING STATUS [facility] 08/28/2025 Admitting Diagnosis Postmenopausal bleeding / N95.0(ICD-10) NA Active [facility] 06/25/2025 Admitting Diagnosis Gastrostomy malfunction (Multi) / K94.23(ICD-10) VENANCIO CORNEJO Active [facility] RESULTS POTASSIUM Collected: 6:55 AM Status: F Source: [facility] TYPE CODE TESTS RESULT OUT OF RANGE REFERENCE UNITS LAB 2823-3(LOINC) Potassium 4.6 3.5-5.3 mmol/L Performed By: MARYA GIBBS ([phone]) [facility] ([facility]) [address] [place] [address] COMPLETE BLOOD COUNT W AUTO DIFFERENTIAL PANEL Collected: 08/17/2025 5:20 PM Status: F Source: [facility] TYPE CODE TESTS RESULT OUT OF RANGE REFERENCE UNITS LAB 6690-2(LOINC) Leukocytes 6.6 4.4-11.3 x10*3/ uL LAB 50028-5(LOINC ) Erythrocytes.nu cleated/Leukocy robert 0.0 0.0-0.0 /100 WBCs LAB 789-8(LOINC) Erythrocytes 3.70 Low 4.00-5.20 x10* 6/uL LAB 718-7(LOINC) Hemoglobin 10.9 Low 12.0-16.0 g/dL LAB 4544-3(LOINC) Erythrocyte/Blo od 33.9 Low 36.0-46.0 % LAB 787-2(LOINC) Observation 92 80-100 fL LAB 785-6(LOINC) Hemoglobin 29.5 26.0-34.0 pg LAB 786-4(LOINC) Hemoglobin 32.2 32.0-36.0 g/dL LAB 788-0(LOINC) Observation 15.6 High 11.5-14.5 % LAB 777-3(LOINC) Platelets 195 150-450 x10*3/uL LAB 770-8(LOINC) Neutrophils/[place] kocytes 73.4 40.0-80.0 % LAB 17171-4(LOINC ) Granulocytes.im mature/Leukocyt es 2.7 High 0.0-0.9 % Result Comment: Immature Gra nulocyte Count (IG) includes promyelocytes, myelocytes and metamyelocytes but does not include bands. Percent differential counts (%) should be interpreted in the context of the absolute cell counts (cells/UL). LAB 736-9(LOINC) Lymphocytes/[place] kocytes 7.1 13.0-44.0 % LAB 5905-5(LOINC) Monocytes/Leuko cytes 12.3 2.0-10.0 % LAB 713-8(LOINC) Eosinophils/[place] kocytes 4.0 0.0-6.0 % LAB 706-2(LOINC) Basophils/Leuko cytes 0.5 0.0-2.0 % LAB 751-8(LOINC) Neutrophils 4.83 1.20-7.70 x10*3 /uL Result Comment: Percent diff erential counts (%) should be interpreted in the context of the absolute cell counts (cells/uL). LAB 05332-8(LOINC ) Granulocytes.im mature 0.18 0.00-0.70 x10*3/uL LAB 731-0(LOINC) Lymphocytes 0.47 Low 1.20-4.80 x10*3 /uL LAB 742-7(LOINC) Monocytes 0.81 0.10-1.00 x10*3/u L LAB 711-2(LOINC) Eosinophils 0.26 0.00-0.70 x10*3 /uL LAB 704-7(LOINC) Basophils 0.03 0.00-0.10 x10*3/u L Performed By: MARYA GIBBS ([phone]) [facility] ([facility]) [address] [place] [address] COMPREHENSIVE METABOLIC 2000 PANEL Collected: 08/17/2025 5:20 PM Status: F Source: [facility] TYPE CODE TESTS RESULT OUT OF RANGE REFERENCE UNITS LAB 2345-7(LOINC) Glucose 91 74-99 mg/dL LAB 2951-2(LOINC) Sodium 135 Low 136-145 mmol/L LAB 2823-3(LOINC) Potassium 3.0 Low 3.5-5.3 mmol/L LAB 2075-0(LOINC) Chloride 96 Low 98-107 mmol/L LAB 8-9(LOINC) Carbon dioxide 29 21-32 mmo l/L Result Comment: Bicarbonate results may be falsely elevated when Lactate Dehydrogenase (LDH) concentrations exceed 2,000 U/L due to a temporary reagent manufacturing issue. If significantly elevated LDH levels are suspected, interpret bicarbonate results with caution, correlate with the patient's clinical status, and consider confirming CO2 values using a blood gas analyzer. LAB 11250-3(LOINC ) Anion gap 13 10-20 mmol/L LAB 3094-0(LOINC) Urea nitrogen 35 High 6-23 mg/d L LAB 2160-0(LOINC) Creatinine 1.21 High 0.50-1.05 mg/dL LAB 55130-4(LOINC ) Glomerular filtration rate 50 Low >60 mL/min/ 1.73m*2 Result Comment: Calculations of estimated GFR are performed using the 2020 CKD- EPI Study Refit equation without the race variable for the IDMS-Traceable creatinine methods. https://jasn.asnjournals.org/content//ASN.5838392658 LAB 59921-7(LOINC ) Calcium 8.2 Low 8.6-10.3 mg/dL LAB 03755-8(LOINC ) Albumin 3.7 3.4-5.0 g/dL LAB 6768-6(LOINC) Alkaline phosphatase 111 33-136 U/L LAB 2885-2(LOINC) Protein 6.9 6.4-8.2 g/dL LAB 02284-8(LOINC ) Aspartate aminotransferase 40 High 9-39 U/L LAB 1975-2(LOINC) Bilirubin 0.4 0.0-1.2 mg/dL LAB 1743-4(LOINC) Alanine aminotransferase 40 7-45 U/L Result Comment: Patients saima ated with Sulfasalazine may generate falsely decreased results for ALT. Performed By: MARYA GIBBS ([phone]) [facility] ([facility]) [address] [place] [address] PROGRESS Observed: 2025 12:00 AM Status: COMPLETED Source: [facility] HNO ID: [id number] Author: SHU ALFORD MD Service: ? Author Type: Physician Type: Progress Notes Filed: 07/18/2025 16:15 Note Text: [facility] NOTE NAME: SCOTT OBREGON [facility] NO.: [id number] DATE OF SERVICE: 2025 ATTENDING PHYSICIAN: Shu Alford MD [facility] Followup of multiple medical chronic issues. She is currently up in a wheelchair. She is getting ready to go to therapy. She is feeling fairly good at this time. She denies any shortness of breath or chest pain. She has been tolerating dialysis. Nursing reports no new problems. EXAMINATION: HEENT: Intact. Lungs: Clear. Heart: Regular. Abdomen: Soft, nontender. Extremities: No edema. IMPRESSIONS: 1. Hypothyroidism, continue supplement. 2. Hypertension with orthostatic hypotension related to dialysis, continue to monitor blood pressures closely. They have been fairly stable. 3. End-stage renal disease, continue with current hemodialysis. 4. Failure to thrive, continue to monitor nutritional status. Maintain current course of treatment. 5. Hyperlipidemia, continue statin. 6. History of depression, she appears to be in good spirits. Monitor her mood and behavior. Maintain current course of treatment. DICTATED BY: MD TERRI Israel/ROMAN JOB# [id number] [facility] OSE Collected: 11:09 PM Status: F Source: [facility] TYPE CODE TESTS RESULT OUT OF RANGE REFERENCE UNITS LAB 2341-6(LOINC) Glucose 77 74-99 mg/dL Performed By: MARYA GIBBS ([phone]) [facility] ([facility]) [address] [place] [address] BASIC METABOLIC 2000 PANEL Collected: 0 06/25/2025 10:17 PM Status: F Source: [facility] TYPE CODE TESTS RESULT OUT OF RANGE REFERENCE UNITS LAB 2345-7(LOINC) Glucose 101 High 74-99 mg/dL LAB 2951-2(LOINC) Sodium 140 136-145 mmol/L LAB 2823-3(LOINC) Potassium 3.1 Low 3.5-5.3 mmol/L LAB 2075-0(LOINC) Chloride 98 98-107 mmol/L LAB 2027-9(LOINC) Carbon dioxide 33 High 21-32 mmo l/L Result Comment: Bicarbonate results may be falsely elevated when Lactate Dehydrogenase (LDH) concentrations exceed 2,000 U/L due to a temporary reagent manufacturing issue. If significantly elevated LDH levels are suspected, interpret bicarbonate results with caution, correlate with the patient's clinical status, and consider confirming CO2 values using a blood gas analyzer. LAB 79708-5(LOINC) Anion gap 12 10-20 mmol/L LAB 3094-0(LOINC) Urea nitrogen 16 6-23 mg/d L LAB 2160-0(LOINC) Creatinine 1.21 High 0.50-1.05 mg/dL LAB 49566-7(LOINC) Glomerular filtration rate 51 Low >60 mL/min/1 .73m*2 Result Comment: Calculations of estimated GFR are performed using the 2020 CKD- EPI Study Refit equation without the race variable for the IDMS-Traceable creatinine methods. https://jasn.asnjournals.org/content/early//ASN.2858095045 LAB 21620-2(LOINC) Calcium 8.5 Low 8.6-10.3 mg/dL Performed By: MARYA GIBBS ([id number] [phone]) [facility] ([facility]) [address] [place] [address] GLUCOSE Collected: 9:53 PM Status: F Source: [facility] TYPE CODE TESTS RESULT OUT OF RANGE REFERENCE UNITS LAB 2341-6(LOINC) Glucose 13 Low 74-99 mg/dL Result Comment: MD Notified Performed By: MARYA GIBBS ([phone]) [facility] ([facility]) [address] [place] [address] GLUCOSE Collected: 9:51 PM Status: F Source: [facility] TYPE CODE TESTS RESULT OUT OF RANGE REFERENCE UNITS LAB 2341-6(LOINC) Glucose 11 Low 74-99 mg/dL Result Comment: MD Notified Performed By: MARYA GIBBS ([phone]) [facility] ([facility]) [address] [place] [address] GLUCOSE Collected: 9:01 PM Status: F Source: [facility] TYPE CODE TESTS RESULT OUT OF RANGE REFERENCE UNITS LAB 2341-6(LOINC) Glucose 58 Low 74-99 mg/dL Performed By: MARYA GIBBS ([phone]) [facility] ([facility]) [address] [place] [address] XR ABDOMEN 1 VIEW Observed: 06/25/2025 5:14 PM Status: F Source: [facility] Interpreted By: Sushma Hammond, STUDY: XR ABDOMEN 1 VIEW; 06/25/2025 5:39 pm INDICATION: Signs/Symptoms:PEG tube placement. COMPARISON: None. ACCESSION NUMBER(S): [id number] ORDERING CLINICIAN: VENANCIO CORNEJO FINDINGS: Enteric contrast was injected through a PEG tube. The gastric fundus is well opacify with enteric contrast. Areas of contrast are seen overlying the midabdomen and pelvis, possibly external to the patient or from a prior exam. Recommend correlation with direct inspection. IMPRESSION: 1. Orally administered contrast through the PEG tube well opacify the gastric fundus. Some limitations as above. Consider CT for further evaluation if clinically indicated. MACRO: None Signed by: Kvng Hammond 06/25/2025 5:58 PM Dictation workstation: [id number] GLUCOSE Collected: 4:51 PM Status: F Source: [facility] TYPE CODE TESTS RESULT OUT OF RANGE REFERENCE UNITS LAB 2341-6(LOINC) Glucose <10 Low 74-99 mg/dL Performed By: MARYA GIBBS ([phone]) [facility] ([facility]) [address] [place] [address] ECG 12-LEAD Observed: 06/25/2025 4:49 PM Status: F Source: [facility] Ventricular Rate 87 Atrial Rate 87 P-R Interval 370 QRS Duration 76 Q-T Interval 372 QTC Calculation(Bazett) 447 P York 29 R York 32 T York 233 QRS Count 14 Q Onset 226 P Onset 41 P Offset 76 T Offset 412 QTC Fredericia 420 Diagnosis Sinus rhythm with 1st degree AV block Posterior infarct , age undetermined ST & T wave abnormality, consider inferolateral ischemia Abnormal ECG No previous ECGs available See ED provider note for full interpretation and clinical correlation Confirmed by Linda Reza ([id number]) on 06/26/2025 10:47:11 AM COMPLETE BLOOD COUNT W AUTO DIFFERENTIAL PANEL Collected: 06/25/2025 4:37 PM Status: F Source: [facility] TYPE CODE TESTS RESULT OUT OF RANGE REFERENCE UNITS LAB 6690-2(LOINC) Leukocytes 7.3 4.4-11.3 x10*3/ uL LAB 49960-8(LOINC ) Erythrocytes.nu cleated/Leukocy robert 0.0 0.0-0.0 /100 WBCs LAB 789-8(LOINC) Erythrocytes 3.16 Low 4.00-5.20 x10* 6/uL LAB 718-7(LOINC) Hemoglobin 9.3 Low 12.0-16.0 g/dL LAB 4544-3(LOINC) Erythrocyte/Blo od 29.7 Low 36.0-46.0 % LAB 787-2(LOINC) Observation 94 80-100 fL LAB 785-6(LOINC) Hemoglobin 29.4 26.0-34.0 pg LAB 786-4(LOINC) Hemoglobin 31.3 Low 32.0-36.0 g/dL LAB 788-0(LOINC) Observation 17.0 High 11.5-14.5 % LAB 777-3(LOINC) Platelets 144 Low 150-450 x10*3/uL LAB 770-8(LOINC) Neutrophils/[place] kocytes 69.0 40.0-80.0 % LAB 18544-6(LOINC ) Granulocytes.im mature/Leukocyt es 5.6 High 0.0-0.9 % Result Comment: Immature Gra nulocyte Count (IG) includes promyelocytes, myelocytes and metamyelocytes but does not include bands. Percent differential counts (%) should be interpreted in the context of the absolute cell counts (cells/UL). LAB 736-9(LOINC) Lymphocytes/[place] kocytes 11.1 13.0-44.0 % LAB 5905-5(LOINC) Monocytes/Leuko cytes 9.1 2.0-10.0 % LAB 713-8(LOINC) Eosinophils/[place] kocytes 4.8 0.0-6.0 % LAB 706-2(LOINC) Basophils/Leuko cytes 0.4 0.0-2.0 % LAB 751-8(LOINC) Neutrophils 5.02 1.20-7.70 x10*3 /uL Result Comment: Percent diff erential counts (%) should be interpreted in the context of the absolute cell counts (cells/uL). LAB 97641-2(LOINC ) Granulocytes.im mature 0.41 0.00-0.70 x10*3/uL LAB 731-0(LOINC) Lymphocytes 0.81 Low 1.20-4.80 x10*3 /uL LAB 742-7(LOINC) Monocytes 0.66 0.10-1.00 x10*3/u L LAB 711-2(LOINC) Eosinophils 0.35 0.00-0.70 x10*3 /uL LAB 704-7(LOINC) Basophils 0.03 0.00-0.10 x10*3/u L Performed By: MARYA GIBBS ([phone]) [facility] ([facility]) [address] [place] [address] COMPREHENSIVE METABOLIC 2000 PANEL Collected: 06/25/2025 4:37 PM Status: F Source: [facility] TYPE CODE TESTS RESULT OUT OF RANGE REFERENCE UNITS LAB 2345-7(LOINC) Glucose 84 74-99 mg/dL LAB 2951-2(LOINC) Sodium 139 136-145 mmol/L LAB 2823-3(LOINC) Potassium 3.4 Low 3.5-5.3 mmol/L LAB 2075-0(LOINC) Chloride 99 98-107 mmol/L LAB 8-9(LOINC) Carbon dioxide 34 High 21-32 mmo l/L Result Comment: Bicarbonate results may be falsely elevated when Lactate Dehydrogenase (LDH) concentrations exceed 2,000 U/L due to a temporary reagent manufacturing issue. If significantly elevated LDH levels are suspected, interpret bicarbonate results with caution, correlate with the patient's clinical status, and consider confirming CO2 values using a blood gas analyzer. LAB 79317-8(LOINC ) Anion gap 9 Low 10-20 mmol/L LAB 3094-0(LOINC) Urea nitrogen 10 6-23 mg/d L LAB 2160-0(LOINC) Creatinine 0.84 0.50-1.05 mg/dL LAB 97005-7(LOINC ) Glomerular filtration rate 79 >60 mL/min/ 1.73m*2 Result Comment: Calculations of estimated GFR are performed using the 2020 CKD- EPI Study Refit equation without the race variable for the IDMS-Traceable creatinine methods. https://jasn.asnjournals.org/content///ASN.6794473932 LAB 64881-8(LOINC ) Calcium 8.0 Low 8.6-10.3 mg/dL LAB 97186-6(LOINC ) Albumin 3.6 3.4-5.0 g/dL LAB 6768-6(LOINC) Alkaline phosphatase 102 33-136 U/L LAB 2885-2(LOINC) Protein 6.6 6.4-8.2 g/dL LAB 36078-0(LOINC ) Aspartate aminotransferase 47 High 9-39 U/L LAB 1975-2(LOINC) Bilirubin 0.4 0.0-1.2 mg/dL LAB 1743-4(LOINC) Alanine aminotransferase 50 High 7-45 U/L Result Comment: Patients saima ated with Sulfasalazine may generate falsely decreased results for ALT. Performed By: MARYA GIBBS ([phone]) [facility] ([facility]) [facility] [place] [address] TROPONIN I.CARDIAC PANEL Collected: 4:37 PM Status: F Source: [facility] Order Comment: Less than 99t h percentile of normal range cutoff- Female and children under 18 years old <14 ng/L; Male <21 ng/L: Negative Repeat testing should be performed if clinically indicated. Female and children under 18 years old 14-50 ng/L; Male 21-50 ng/L: Consistent with possible cardiac damage and possible increased clinical risk. Serial measurements may help to assess extent of myocardial damage. >50 ng/L: Consistent with cardiac damage, increased clinical risk and myocardial infarction. Serial measurements may help assess extent of myocardial damage. NOTE: Children less than 1 year old may have higher baseline troponin levels and results should be interpreted in conjunction with the overall clinical context. NOTE: Troponin I testing is performed using a different testing methodology at [facility] than at other [facility]. Direct result comparisons should only be made within the same method. TYPE CODE TESTS RESULT OUT OF RANGE REFERENCE UNITS LAB 35328-4([facility]) Troponin I.cardiac panel 14 High 0-13 ng/L Performed By: MARYA GIBBS ([phone]) [facility] ([facility]) [facility] [place] [address] XR CHEST 1 VIEW Observed: 06/25/2025 4:25 PM Status: F Source: [facility] Interpreted By: Sushma Hammond, STUDY: XR CHEST 1 VIEW; 06/25/2025 5:09 pm INDICATION: Signs/Symptoms:hypoglycemia. COMPARISON: None. ACCESSION NUMBER(S): [id number] ORDERING CLINICIAN: VENANCIO CORNEJO FINDINGS: AP radiograph of the chest was provided. Right-sided dialysis catheter with the tip in the atriocaval junction. CARDIOMEDIASTINAL SILHOUETTE: Cardiomediastinal silhouette is normal in size and configuration. LUNGS: Chronic interstitial and reticulonodular opacities. No pneumothorax or pleural effusion. ABDOMEN: No remarkable upper abdominal findings. BONES: No acute osseous changes. IMPRESSION: 1. No evidence of acute cardiopulmonary process. Chronic lung changes. MACRO: None Signed by: Kvng Hammond 06/25/2025 5:22 PM Dictation workstation: [id number] PROGRESS Observed: 05/15/2025 12:00 AM Status: COMPLETED Source: [facility] HNO ID: [id number] Author: SHU ALFORD MD Service: ? Author Type: Physician Type: Progress Notes Filed: 05/23/2025 08:53 Note Text: [facility] NOTE NAME: SCOTT OBREGON [facility] NO.: [id number] DATE OF SERVICE: 05/15/2025 ATTENDING PHYSICIAN: Shu Alford MD [facility] Followup of multiple medical chronic issues She is currently up in bed. She is alert and responsive. She seems fairly comfortable. She has been tolerating her tube feedings. She does eat through the day as tolerated. Once again, her tube feedings are at nighttime. She denies any shortness of breath or chest pain. She has been tolerating her hemodialysis. She denies any shortness of breath or chest pain. MEDICATIONS: Reviewed. EXAMINATION: HEENT: Intact. Lungs: Clear. Heart: Regular. Gastrostomy feeding tube present. Extremities: No edema. IMPRESSIONS: 1. Recent respiratory failure secondary to pneumonia- resolved. Continue to monitor her respiratory status closely. 2. End-stage renal disease-continue hemodialysis. 3. History of hypertension-continue to monitor blood pressure closely. 4. History of depression and anxiety-appears to be in fairly good spirits at this time. Continue current antidepressant therapy. 5. Hypothyroidism - continue supplement. 6. Failure to thrive, malnutrition-continue her tube feedings at nighttime. DICTATED BY: Shu Alford MD IANancy/ROMAN JOB# [id number] [facility] RESS Observed: 03/18/2025 12:00 AM Status: COMPLETED Source: [facility] HNO ID: [id number] Author: SHU ALFORD MD Service: ? Author Type: Physician Type: Progress Notes Filed: 03/20/2025 16:25 Note Text: [facility] NOTE NAME: SCOTT OBREGON [facility] NO.: [id number] DATE OF SERVICE: 03/18/2025 ATTENDING PHYSICIAN: Shu Alford MD [facility] PATIENT HISTORY AND PHYSICAL: HISTORY OF PRESENT ILLNESS: The patient is a 64-year-old female, who is admitted to us from [facility] with the diagnoses of sepsis with hypotension secondary to acute pneumonia, altered mental status secondary to metabolic encephalopathy, chronic hypoxic respiratory failure on continuous home oxygen therapy, end-stage renal disease on chronic hemodialysis, bilateral toe wounds with dry gangrene, anemia of chronic kidney disease, history of Factor 5 Leiden mutation, hypertension, GERD, hypothyroidism, history of depression and anxiety, chronic constipation, previous repair of ruptured abdominal aortic aneurysm, past smoking history, and generalized weakness and debility. She was initially admitted to the hospital from the dialysis unit after developing significant hypotension along with altered mental status. Initial evaluation revealed her to be septic with acute on chronic hypoxic respiratory failure secondary to pneumonia. She was given IV fluids, as well as started on broad-spectrum IV antibiotic therapy, respiratory treatments and supplemental oxygen. Her altered mental status was felt to be due to toxic metabolic encephalopathy, which improved during the course of her hospitalization. She was also seen by the nephrology service and palliative care services. Her condition was stabilized and improved, and she is now admitted to our facility for continued therapy prior to returning to her home situation. She normally lives at home with her , but will be moving with her sister who apparently has a 1 floor home. REVIEW OF SYSTEMS: The patient is currently resting in bed. She is alert and oriented. States she is feeling and breathing much better. She is on supplemental oxygen, which she normally is on at home. She currently denies any shortness of breath. No documented history of COPD, asthma, or bronchitis. She apparently stopped smoking a little over a year ago. She is not aware of any prior heart attacks, heart surgeries or pacemakers. Once again, she denies any chest pain or angina. She does have hypertension, though she initially presented hypotensive due to her sepsis. She does have hyperlipidemia and hypothyroidism. Her appetite has been poor with severe malnutrition. She did have placement of gastrostomy feeding tube earlier this year, which supplements her oral diet and intake. No history of bleeding ulcers, hepatitis, or melena. No prior strokes or seizures. She is not a diabetic. Once again, she does have end-stage renal disease and has been on hemodialysis. FAMILY HISTORY: Significant for hypertension. SOCIAL/FUNCTIONAL HISTORY: She stopped smoking a little over a year ago. No history of alcohol abuse. She does normally live at home with her . MEDICATIONS: Albuterol aerosol treatments p.r.n., amlodipine 5 mg daily, ascorbic acid 500 mg daily, aspirin 81 mg daily, atorvastatin 20 mg at bedtime, cefdinir 300 mg daily for 4 more days, Cipro 500 mg daily for 7 days, esomeprazole 40 mg daily, ferrous sulfate 325 mg daily, furosemide 80 mg daily, levothyroxine 200 mcg daily, metoprolol tartrate 25 mg b.i.d., midodrine p.r.n. during dialysis, mirtazapine 30 mg at bedtime, oxycodone p.r.n., MiraLAX daily, Renal multivitamin daily, sertraline 50 mg daily, and thiamine 100 mg b.i.d. ALLERGIES: IODINE and SHELLFISH. EXAMINATION: Afebrile, vital signs stable, but she is in no distress. She appears chronically ill. She is quite thin and frail and does appear pale. HEENT: Extraocular movements intact, sclerae nonicteric. Ears intact. Lungs: Clear with decreased breath sound at the bases. Heart: Regular. Abdomen: Soft, nontender. Bowel sounds present. Gastrostomy feeding tube present. Extremities: No edema. No ischemia or cyanosis. She does have generalized weakness. Also, extensive muscle wasting. Dialysis port present right anterior chest wall. IMPRESSION: 1. Acute on chronic hypoxic respiratory failure secondary to pneumonia-we will continue to monitor her respiratory status closely. She will complete current course of antibiotics. Maintain current supplemental oxygen and respiratory treatments. 2. Altered mental status secondary to toxic metabolic encephalopathy- resolved. She appears back at baseline. Monitor her cognitive status closely. 3. End-stage renal disease-she will continue with current hemodialysis. She will follow up with Nephrology as an outpatient as indicated. 4. Hypertension with initial hypotension secondary to septic shock-continue to monitor blood pressure closely. 5. Functional assessment-she does have generalized weakness. She will be receiving rehab services for overall strengthening and conditioning. Overall, condition, prognosis is quite guarded. We will obtain followup labs including CBC and BMP. DICTATED BY: MD TERRI Israel/ROMAN JOB# [id number] [facility] RGIES DATE TYPE / CODE NAME / CODE REACTION SEVERITY SOURCE 06/25/2025 DRUG INGREDI/[id number](S NOMED CT) [facility] ENCOUNTERS ADMIT/DISCHARGE ACCOUNT NUMBER ADMITTING ENCOUNTER CLASS LOCATION SOURCE 08/28/2025 [id number] Ambulatory Building:[facility] 06/25/2025/ [id number] Emergency Building:[facility] EDRoom: [id number] : [address] PAYERS ENCOUNTER GUARANTOR PAYER SUBSCRIBER SOURCE 08/28/2025 SCOTT THOMPSONOB: [address] [address]Mio: () () Primary Insurance:SANGITA cast Number: [id number] tive Date:[id number] an Name:Jose Angel SCOTT DONNAOB: [id number] [address] [address]Shv: () [facility] 06/25/2025 SCOTT THOMPSONOB: [place], [place] [address]Bdd: () Primary Insurance:SANGITA cast Number: [id number] tive Date:2025-05-29 SCOTT THOMPSONOB: [id number] [place] [address] [facility]
== END 2024-08-13 17:02 | disposition intermediate care facility (04) ==
LOC: ED 15:13 → PCU 08-01 08:41
PROVIDERS: Family Medicine; Internal Medicine Gastroenterology; Nurse Practitioner Adult Health; Student in an Organized Health Care Education/Training Program; Admitting Provider Hospitalist; Emergency Provider Emergency Medicine; PCP Family Medicine; Referring Provider Emergency Medicine; Visit Provider Internal Medicine
PROC: 0DJ08ZZ Inspection of Upper Intestinal Tract, Via Natural or Artificial Opening Endoscopic (ICD-10-PCS; CPT 43235; principal; 2024-08-03 07:30)
DX: K25.4 Chronic or unspecified gastric ulcer with hemorrhage (principal); I73.01 Raynaud's syndrome with gangrene; N18.6 End stage renal disease; I12.0 Hypertensive chronic kidney disease with stage 5 chronic kidney disease or end stage renal disease; J43.9 Emphysema, unspecified; I24.89 Other forms of acute ischemic heart disease; E43 Unspecified severe protein-calorie malnutrition; D62 Acute posthemorrhagic anemia; T85.528A Displacement of other gastrointestinal prosthetic devices, implants and grafts, initial encounter; D68.51 Activated protein C resistance; Z68.1 Body mass index [BMI] 19.9 or less, adult; D63.1 Anemia in chronic kidney disease; L89.151 Pressure ulcer of sacral region, stage 1; F32.A Depression, unspecified; E03.9 Hypothyroidism, unspecified; Z99.2 Dependence on renal dialysis; E78.5 Hyperlipidemia, unspecified; E87.5 Hyperkalemia; K21.9 Gastro-esophageal reflux disease without esophagitis; S31.109A Unspecified open wound of abdominal wall, unspecified quadrant without penetration into peritoneal cavity, initial encounter; E16.2 Hypoglycemia, unspecified; S91.109A Unspecified open wound of unspecified toe(s) without damage to nail, initial encounter; Z66 Do not resuscitate; R62.7 Adult failure to thrive; Z87.891 Personal history of nicotine dependence; Z79.01 Long term (current) use of anticoagulants; Z79.890 Hormone replacement therapy; Y73.2 Prosthetic and other implants, materials and accessory gastroenterology and urology devices associated with adverse incidents; Z79.82 Long term (current) use of aspirin; Z79.899 Other long term (current) drug therapy; T85.898A Other specified complication of other internal prosthetic devices, implants and grafts, initial encounter; X58.XXXA Exposure to other specified factors, initial encounter; Z86.19 Personal history of other infectious and parasitic diseases; R19.7 Diarrhea, unspecified
CPT/HCPCS: 43255; 43999; 36415; 36430; 74177; 80048; 80053; 81025; 82947; 82962; 83036; 83690; 84484; 85014; 85018; 85025; 85027; 85610; 85730; 86644; 86850; 86870; 86900; 86901; 86902; 86920; 86922; 87493; 90937; 93005; 94640; 94668; 94762; 96361; 96365; 96366; 96367; 96368; 96372; 96375; 96376; 97162; 97166; 97530; 97535; 97802; 97803; 99221; 99285; C1889; P9016; Q9967; A4216; G0257; G0378; J1610; J2405; Q5106

== ENCOUNTER 2024-08-14 07:24 | Inpatient (IN) | payer OTHER, SELFPAY ==
[2024-08-14] VITALS (22 sets, daily range): BP systolic 65–282; BP diastolic 62–101; PULSE 70–122; RESP 14–26; TEMP 36.1–37; O2SAT 89–100; BMI 16.7; BMI 16.0; BMI 16.1
--- NOTE | 2024-08-14 07:33 | EKG12_ITS ---
Test Reason : Blood Pressure : */* mmHG Vent. Rate : 109 BPM Atrial Rate : 109 BPM P-R Int : 114 ms QRS Dur : 82 ms QT Int : 316 ms P-R-T Axes : 10 15 267 degrees QTcB Int : 425 ms Sinus tachycardia Low voltage QRS Septal infarct , age undetermined ST & T wave abnormality, consider anterior ischemia Abnormal ECG When compared with ECG of 03-Aug-2024 05:52, Vent. rate has increased by 45 bpm Nonspecific T wave abnormality now evident in Inferior leads T wave inversion more evident in Anterior leads Confirmed by WALT KENNEDY, NIDIA ([id number]), editor & co founder PATY TORRES ([id number]) on 08/19/2024 8:14:23 AM Referred By: ERNIE Confirmed By: NIDIA GODOY MD
[2024-08-14] MEDS: Ipratropium/Albuterol Sulfate 3 ML AMPUL.NEB 9 ML INHALATION (07:44)
--- NOTE | 2024-08-14 07:44 | ED.RN ---
Tried pulling old ekg, the muse is not working though. Restarted computer. still is not working.
--- NOTE | 2024-08-14 07:53 | ED.RN ---
pt. removing breathing treatment mask, states it is too hot and she cannot breath with it on. Pt. educated the mask needs to stay on. Ice pack placed on head.
--- NOTE | 2024-08-14 08:00 | ED.VIS.DYS ---
HPI History of Present Illness Chief Complaint: Shortness of Breath Narrative Narrative: Chief complaint and HPI: Shortness of breath. 64-year-old female with history of ESRD on HD Monday, Monday, Monday, failure to thrive with PEG tube, AAA, factor V Leiden, HLD presents for evaluation of shortness of breath. Patient resides at [facility]. Per their report patient became short of breath this morning. They also noticed increased bilateral lower extremity peripheral edema. Patient is supposed to receive dialysis today. Patient endorses shortness of breath. She states she feels warm but does not know if she has had fevers. She denies any headache, URI symptoms, cough, abdominal pain, nausea, vomiting, dysuria. States she has some chest tightness but denies true chest pain. Patient's paperwork from care facility states that she is a DNR/DNI however patient is endorsing that she would like to be full code. Review of systems: See HPI Medications: As listed on the chart Allergies: As listed on the chart PFSH: Per chart Vital signs: As listed on the chart. Reviewed. Physical exam: Gen: A&O x3 Head: Normocephalic, atraumatic Eyes: No sclera icterus, conjunctiva clear, PERRL, EOMI ENT: Dry mucous membranes Neck: Trachea midline, No JVD CV: Tachycardic, regular rhythm, no murmurs, right sided HD catheter, +1 bilateral lower extremity peripheral edema she has +2 pitting edema in the bilateral feet Resp: Lungs diminished bilaterally, coarse GI: Cachectic, abd soft, non-distended but edematous in the lower portion of the abdomen, non-tender, no r/r/g, + PEG tube : Normal external genitalia but edematous Musc: Moves all extremities, no deformity Skin: Warm, dry Neuro: Alert, oriented, grossly intact, sensation intact Psych: Cooperative, appropriate mood and affect [facility] Medical History (Updated 08/14/24 @ 12:[address] 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 to thrive penitentiary (current) use of anticoagulants Gross hematuria Retroperitoneal hematoma Constipation, unspecified Raynaud's syndrome without gangrene Hypo-osmolality and hyponatremia Hyperlipidemia, unspecified Hypothyroidism, unspecified Anemia, unspecified Need for assistance with personal care Other malaise Other abnormalities of gait and mobility Unsteadiness on feet Muscle weakness (generalized) Other symbolic dysfunctions Dysphagia, oropharyngeal phase Essential (primary) hypertension Activated protein C resistance Unspecified severe protein-calorie malnutrition Acute respiratory failure with hypoxia Emphysema, unspecified Peripheral vascular disease, unspecified Enterocolitis due to Clostridium difficile, not specified as recurrent Acute kidney failure, unspecified Leakage of aortic (bifurcation) graft (replacement), subsequent encounter Abdominal aortic aneurysm, ruptured, unspecified Home Medications ?Medication ?Instructions ?Recorded ?Last Taken ?Type aspirin 81 mg tablet,delayed 81 mg PO DAILY 03/11/24 07/23/24 History release (Adult Aspirin Regimen) Held on 08/14/24. Instructions: MD Ordered atorvastatin 20 mg tablet 20 mg PO QHS 03/11/24 07/22/24 History metoprolol tartrate 25 mg tablet 25 mg PO BID 03/11/24 07/22/24 History thiamine HCl (vitamin B1) 100 mg 100 mg PO BID 04/11/24 07/23/24 History tablet cyclobenzaprine 5 mg tablet 5 mg PO Q8H PRN MUSCLE SPASMS 06/05/24 07/10/24 History Lactobacillus rhamnosus GG 10 1 cap PO DAILY 07/18/24 07/23/24 History billion cell capsule (Culturelle) acetaminophen 325 mg tablet 650 mg PO Q4H PRN fever 07/18/24 Unknown History aluminum-magnesium hydroxide 200 30 ml PO Q4H PRN GI DISTRESS 07/18/24 Unknown History mg-200 mg/5 mL oral suspension amlodipine 5 mg tablet 5 mg PO QHS 07/18/24 07/22/24 History docusate sodium 100 mg tablet 100 mg PO BID PRN constipation 07/18/24 Unknown History dronabinol 2.5 mg capsule (Marinol) 2.5 mg PO BID 07/18/24 07/23/24 History guaifenesin 100 mg/5 mL oral liquid 200 mg PO Q4H PRN cough 07/18/24 07/14/24 History levothyroxine 200 mcg tablet 200 mcg PO DAILY 07/18/24 07/23/24 History midodrine 10 mg tablet 10 mg PO DAILY PRN for SBP lower 07/18/24 Unknown History than 110 during dialysis tx ondansetron 4 mg disintegrating 4 mg PO DAILY PRN nausea and 07/18/24 Unknown History tablet vomiting oxycodone 5 mg tablet 5 mg PO Q6H PRN pain 07/18/24 07/22/24 History polyethylene glycol 3350 17 17 g PO QODAY 07/18/24 07/21/24 History gram/dose oral powder sennosides 8.6 mg-docusate sodium 1 tab-cap PO DAILY PRN constipation 07/18/24 Unknown History 50 mg tablet (Senna Plus) sertraline 25 mg tablet 25 mg PO DAILY 07/18/24 07/23/24 History vitamin B complex-vitamin C-folic 1 tab PO DAILY 07/18/24 07/23/24 History acid 0.8 mg tablet (Renal Vitamin) bisacodyl 10 mg rectal suppository 10 mg VA DAILY PRN constipation 07/31/24 Unknown History cholecalciferol (vitamin D3) 125 125 mcg PO DAILY 07/31/24 Unknown History mcg (5,000 unit) capsule glucagon HCl 1 mg solution for 1 mg IM Q20M PRN hypoglycemia 07/31/24 Unknown History injection (Glucagon (HCl) Emergency Kit) ascorbic acid (vitamin C) 500 mg 500 mg PO DAILY #0 tabs 08/13/24 Unknown Rx tablet ferrous sulfate 325 mg (65 mg 325 mg PO QODAY #30 tabs 08/13/24 Unknown Rx iron) tablet loperamide 2 mg capsule 2 mg PO Q4H PRN DIARRHEA #0 caps 08/13/24 Unknown Rx pantoprazole 40 mg tablet,delayed 40 mg PO BID #0 tabs 08/13/24 Unknown Rx release acetaminophen 650 mg rectal 650 mg VA Q4H PRN fever or pain 08/14/24 Unknown History suppository dextrose 40 % oral gel (Glucose 10 g PO Q15M PRN hypoglycemia 08/14/24 Unknown History Gel) mirtazapine 15 mg tablet 15 mg PO QHS 08/14/24 Unknown History sodium phosphates 19 gram-7 118 ml VA DAILY PRN constipation 08/14/24 Unknown History gram/118 mL enema (Enema) Allergy/AdvReac Type Severity Reaction Status Date / Time iodine Allergy Intermediate Nausea Verified 08/14/24 07:32 shellfish derived Allergy Intermediate Nausea Verified 08/14/24 07:32 Social History Smoking Status: Former smoker Tobacco: How many years used: 40 alcohol intake: former substance use type: does not use EXAM Physical Exam Const Vital Signs: 08/14/24 07:25 08/14/24 07:33 08/14/24 07:38 Temperature 97.2 F L Temperature Source Temporal Pulse Rate 122 H Respiratory Rate 26 H Respiratory Effort Short of Breath Labored Accessory Muscle Use Nasal Flaring Respiratory Depth Shallow Respiratory Pattern Tachypnea Blood Pressure 157/101 H Blood Pressure Mean 119 Pulse Ox 89 Oxygen Delivery Method Non-Rebreather Non-Rebreather Non-Rebreather Oxygen Flow Rate (L/min) 15 15 08/14/24 07:49 08/14/24 08:25 08/14/24 09:00 Temperature 97.4 F L Temperature Source Temporal Pulse Rate 119 H 110 H 103 H Respiratory Rate 20 H 21 H 18 Respiratory Effort Respiratory Depth Respiratory Pattern Normal Blood Pressure 135/68 H 127/63 H Blood Pressure Mean 90 84 Pulse Ox 98 98 Oxygen Delivery Method Nasal Cannula Room Air Oxygen Flow Rate (L/min) 3 08/14/24 10:00 08/14/24 11:00 Temperature 97.0 F L 98.6 F Temperature Source Temporal Temporal Pulse Rate 95 91 Respiratory Rate 20 H 23 H Respiratory Effort Respiratory Depth Respiratory Pattern Blood Pressure 131/75 H 136/80 H Blood Pressure Mean 93 98 Pulse Ox 96 98 Oxygen Delivery Method Nasal Cannula Nasal Cannula Oxygen Flow Rate (L/min) 4 MDM MDM MDM Narrative Medical decision making narrative: 64-year-old female with history of ESRD on HD Monday, Monday, Monday, failure to thrive with PEG tube, AAA, factor V Leiden, HLD presents for evaluation of shortness of breath. Differential diagnosis includes but is not limited to pneumonia, viral illness including COVID and influenza, CHF exacerbation, ACS, electrolyte abnormality, UTI. Breathing treatments ordered. Respiratory/cardiac/infectious workup ordered. Chest x-ray was interpreted and reviewed by me, ED physician. ABG without hypercapnia or hypoxia. Patient is on 15 L nonrebreather. Will decrease this to nasal cannula and titrate down oxygen. On reevaluation after breathing treatments. Patient states her shortness of breath has improved. She is now on 4 L nasal cannula. Chest x-ray with pulmonary congestion and edema. Patient has small bilateral pleural effusions. Cannot rule out pneumonia however suspect this is more pulmonary congestion in nature. Given patient's tachycardia, recent hospitalization will cover prophylactically for possible pneumonia. Rocephin and azithromycin ordered. CBC without leukocytosis. Patient has baseline anemia and thrombocytopenia. Coagulation panel unremarkable. CMP with mild hyponatremia at 131 and hyperkalemia 5.4. Patient is post to receive dialysis today. Patient at her baseline creatinine of 1.34. Lactic acid elevated at 3.1. This is likely secondary to her malnutrition however cannot rule out infectious process such as pneumonia. Will hold off on fluids at this time given patient is fluid overloaded on exam as well as chest x-ray. Do not want to worsen respiratory status. No transaminitis. Troponin elevated at 224 and 221. Suspect this is secondary to her ESRD and not acute ACS. UA positive for leuk esterase and WBC. Negative for bacteria. Will send for culture. Patient will warrant admission. Patient will need dialysis as well as further workup including echocardiogram. Patient and family member updated of all results and confirmed understanding the plan. I spoke with the hospitalist, Dr. Magaña. He would like me to reach out to cardiology given her elevated troponins. I spoke with Dr. Nicholas, he agrees that troponin is likely secondary to ESRD. No need for catheterization or consult. Dr. Magaña was updated of Dr. Nicholas recommendation and he accepted admission. EKG: Interpreted by me/EM physician: EKG with sinus tachycardia. Heart rate 109. Patient has nonspecific ST changes with new depressions in V3 compared to previous EKG on August 03. Impression: 1. Acute hypoxia 2. Pulmonary edema/anasarca 3. Pleural effusions 4. Possible pneumonia 5. ESRD on HD 6. Mild hyponatremia 7. Hyperkalemia 6. Malnutrition/failure to thrive Lab Data Labs: Laboratory Results - last 24 hr 08/14/24 08/14/24 08/14/24 07:48 07:48 08:48 WBC 9.0 RBC 3.09 L Hgb 8.7 L Hct 29.0 L MCV 93.9 MCH 28.2 MCHC 30.0 L RDW Std Deviation 70.0 H RDW Coeff of Monika 21.0 H Plt Count 147 L MPV 10.2 Immature Gran % (Auto) 3.300 H Neut % (Auto) 79.5 H Lymph % (Auto) 8.6 L [place] % (Auto) 6.1 Eos % (Auto) 1.9 Baso % (Auto) 0.6 Absolute Neuts (auto) 7.1 Absolute Lymphs (auto) 0.77 L Nucleated RBC % 0 Polychromasia RARE Anisocytosis RARE PT 14.6 INR 1.1 APTT 33.6 Sodium 131 L Potassium 5.4 H Chloride 104 Carbon Dioxide 19.2 L Anion Gap 9 BUN 39 H Creatinine 1.34 H Estim Creat Clear Calc 38.48 L Est GFR (MDRD) Non-Af 45 L BUN/Creatinine Ratio 29.1 H Glucose 85 Lactic Acid 3.1 H* Calcium 7.8 Phosphorus 3.0 Magnesium 1.4 L Total Bilirubin 0.18 AST 29 ALT 9 Alkaline Phosphatase 71 Lactate Dehydrogenase 239 Troponin T High Sens 224 H* D Troponin T Hi Sens 2 Hr Total Protein 5.5 L 5.4 L Albumin 2.0 L Globulin 3.4 Albumin/Globulin Ratio 0.6 L Urine Color Yellow Urine Clarity Sl. Cloudy Urine pH 8.0 Ur Specific [place] 1.010 Urine Protein 30 H Urine Glucose (UA) Normal Urine Ketones Negative Urine Occult Blood 25 H Urine Nitrite Negative Urine Bilirubin Negative Urine Urobilinogen Normal Ur Leukocyte Esterase 500 H Urine RBC 0-5 SEEN Urine WBC 25-50 SEEN Ur Squamous Epith Cells 0-5 SEEN Calcium Oxalate Crystal 1+ Urine Bacteria 0 SEEN Urine Mucus 0 SEEN 08/14/24 10:10 WBC RBC Hgb Hct MCV MCH MCHC RDW Std Deviation RDW Coeff of Monika Plt Count MPV Immature Gran % (Auto) Neut % (Auto) Lymph % (Auto) [place] % (Auto) Eos % (Auto) Baso % (Auto) Absolute Neuts (auto) Absolute Lymphs (auto) Nucleated RBC % Polychromasia Anisocytosis PT INR APTT Sodium Potassium Chloride Carbon Dioxide Anion Gap BUN Creatinine Estim Creat Clear Calc Est GFR (MDRD) Non-Af BUN/Creatinine Ratio Glucose Lactic Acid Calcium Phosphorus Magnesium Total Bilirubin AST ALT Alkaline Phosphatase Lactate Dehydrogenase Troponin T High Sens Troponin T Hi Sens 2 Hr 221 H* Total Protein Albumin Globulin Albumin/Globulin Ratio Urine Color Urine Clarity Urine pH Ur Specific [place] Urine Protein Urine Glucose (UA) Urine Ketones Urine Occult Blood Urine Nitrite Urine Bilirubin Urine Urobilinogen Ur Leukocyte Esterase Urine RBC Urine WBC Ur Squamous Epith Cells Calcium Oxalate Crystal Urine Bacteria Urine Mucus ABG Data ABG results: ABG 08/14/24 08:32 Specimen Type ART Sample Site R Radial pH 7.36 Bicarbonate Actual 22.0 Total CO2 23 Base Excess -3 L O2 Saturation 98 O2 % 44.0 ABG pCO2 39.1 ABG pO2 105 H Milad Test Positive O2 Delivery Device Cannula Vent Mode Not entered Radiography Diagnostic Testing: Clinical Impression(s) from Imaging Studies Chest X-Ray 08/14/24 08:33 IMPRESSION: 1. Pulmonary congestion and edema. Pneumonia cannot be excluded. 2. Bilateral pleural effusions. Reading Location: [facility] Discharge Plan Disposition Disposition: Acute Care Hospital [facility] Discharge Date/Time: 08/14/24 12:48
[2024-08-14 08:13] LABS: Absolute Lymphocyte Count 0.77 X10^3/uL (0.83-4.51); Absolute Neutrophil Count 7.1 X10^3/uL (2.0-7.7); Basophil# 0.05 X10^3/uL; Basophil% 0.6 % (0-1); Eosinophil# 0.17 X10^3/uL; Eosinophils% 1.9 % (0-5); Hemoglobin 8.7 g/dL (12.0-15.0); Lymphocyte # 0.77 X10^3/ul (0.83-4.51); Lymphocyte % 8.6 % (19-41); Mean Corpuscular Hgb 28.2 pg (27.0-32.0); Mean Corpuscular Volume 93.9 fL (81-99); Mean Platelet Vol. 10.2 fl (6.2-12.0); Monocyte# 0.55 X10^3/uL; Monocyte% 6.1 % (0-10); NRBC Flagged by Analyzer 0 % (0-5); Neutrophil # 7.12 X10^3/uL (2.7-7.7); Neutrophil % 79.5 % (47-70); POSITIVE MORPHOLOGY YES; Platelet Count 147 K/mm3 (150-450); Red Blood Count 3.09 M/mm3 (4.2-5.4)
[2024-08-14 08:21] LABS: Differential Indicated SCAN CRITERIA MET
--- NOTE | 2024-08-14 08:33 | RAD_ITS ---
EXAM: XR Chest, 1 View CLINICAL INDICATION: SHORTNESS OF BREATH TECHNIQUE: Frontal view of the chest. COMPARISON: XR Chest dated 04/11/2024 FINDINGS: LUNGS AND PLEURAL SPACES: Pulmonary congestion and edema. Pneumonia cannot be excluded. Bilateral pleural effusions. No pneumothorax. HEART: Unremarkable. No cardiomegaly. MEDIASTINUM: Unremarkable. Normal mediastinal contour. BONES/JOINTS: Unremarkable. No acute fracture. TUBES, LINES AND DEVICES: Right internal jugular central venous catheter tip in the superior vena cava. RAD/Chest 1 View (Portable) IMPRESSION: 1. Pulmonary congestion and edema. Pneumonia cannot be excluded. 2. Bilateral pleural effusions. Reading [facility]
[2024-08-14 08:36] LABS: Allen Test Positive; Base Excess -3 mmol/L (-2 to +2); Blood Gas Specimen Type ART; Mode Not entered; O2 Delivery Device Cannula; PO2 105 mmHG (75-100); SITE R Radial; SO2 98 % (95-99); Total Carbon Dioxide 23 mmol/L; pCO2 39.1 mmHg (35-45); pH 7.36 (7.35-7.45)
[2024-08-14 08:55] LABS: Anisocytosis RARE; Polychromasia RARE
[2024-08-14 08:56] LABS: Bacteria 0 SEEN /hpf (None Seen); Mucous, Urine 0 SEEN /hpf (<or=2+)
[2024-08-14 08:58] LABS: International Normalized Ratio 1.1; Prothrombin Time (Protime)PT. 14.6 SECONDS (11.7-14.9)
[2024-08-14 08:59] LABS: Partial Thromboplast Time 33.6 Seconds (24.1-36.2)
[2024-08-14 09:04] LABS: ALB/GLOB Ratio 0.6 RATIO (0.9-2.4); AST(SGOT) 29 U/L (<=31); Alanine Aminotransfer ALT/SGPT 9 U/L (<=34); Alkaline Phosphatase 71 U/L (35-104); Anion Gap 9 (5-15); BUN 39 mg/dL (4-19); BUN/Creat Ratio 29.1 RATIO (10-20); Calcium,Total 7.8 mg/dL (7.6-11.0); Carbon Dioxide 19.2 mmol/L (21.0-32.0); Chloride 104 mmol/L (98-108); Creatinine, Serum 1.34 mg/dL (0.70-1.20); EST Glomerular Filtration Rate 45 (>60); Estimated Creatinine Clearance 38.48 ml/min (50-250); Globulin 3.4 g/dL (2.2-4.2); Glucose 85 mg/dL (70-99); Potassium 5.4 mmol/L (3.3-5.1); Protein, Total 5.5 g/dL (5.9-8.4); Sodium Level 131 mmol/L (133-145); Total Bilirubin 0.18 mg/dL (0.00-1.30)
[2024-08-14 09:06] LABS: Lactic Acid 3.1 mmol/L (0.0-2.0); Troponin T High Sensitivity 224 ng/L (<=14)
[2024-08-14 09:09] LABS: Color, Urine Yellow (Yellow); Glucose, Dipstick Normal (Normal); Ketone-Dipstick Negative (Negative); Leukocyte Esterase-Dipstick 500 /ul (Negative); Nitrite-Dipstick Negative (Negative); Occult Blood-Urine 25 /ul (Negative); Protein-Dipstick 30 mg/dl (Negative); Urine Bilirubin Dipstick Negative (Negative); Urine Clarity Sl. Cloudy (Clear); Urine Urobilinogen Normal (Normal)
[2024-08-14 09:20] LABS: Red Blood Cells-Urine 0-5 SEEN /hpf (0-5); White Blood Cells 25-50 SEEN /hpf (0-5)
[2024-08-14 09:21] LABS: Calcium Oxalate Crystals Ur 1+ /hpf (<or=2+); Squamous Epithelial Cells - UA 0-5 SEEN /hpf (5-10)
[2024-08-14] MEDS: Ceftriaxone 1 GM/50 ML BAG IV (10:06)
[2024-08-14 10:59] LABS: Troponin T High Sens 2 HR 221 ng/L (<=14)
[2024-08-14] MEDS: Azithromycin 500 MG in 0.9% Normal Saline (250mL Bag) 250 ML 255 MG IV (11:00)
--- NOTE | 2024-08-14 12:21 | PCM.HP.STD ---
HPI - General General Date of Admission: 08/14/24 Date of Service: 08/14/24 Chief Complaint: Shortness of breath, could not breathe HPI Narrative SCOTT OBREGON, is a 64 F who was just discharged yesterday to [facility] came to ED feeling shortness of breath, stated that she could not breathe. Patient is severely malnourished and has chronic bilateral lower extremity edema, paraparesis, PEG tube and small coccygeal decubitus ulcer, stage II. Patient was supposed to have dialysis today. EMS put on 15 L of nonrebreather but currently on 4 L of oxygen in ED. She is also tachycardic and tachypneic. She was admitted for 13 days and is chronically for physically and mentally compromised. Patient was also treated with antibiotic IV antibiotic broad-spectrum Zosyn for 8 days. She also has chronic left upper abdominal wound which is healing and C. difficile antigen was positive but toxin negative. Patient was given 1 dose of IV ceftriaxone and azithromycin based on the chest x-ray finding of bilateral infiltrate which more obtained pulmonary congestion and edema and bilateral small to moderate pleural effusion. Patient is admitted for pulmonary edema/anasarca. Need hemodialysis [facility] Medical History (Updated 08/14/24 @ 12:[address] 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 Gross hematuria Retroperitoneal hematoma Constipation, unspecified Raynaud's syndrome without gangrene Hypo-osmolality and hyponatremia Hyperlipidemia, unspecified Hypothyroidism, unspecified Anemia, unspecified Need for assistance with personal care Other malaise Other abnormalities of gait and mobility Unsteadiness on feet Muscle weakness (generalized) Other symbolic dysfunctions Dysphagia, oropharyngeal phase Essential (primary) hypertension Activated protein C resistance Unspecified severe protein-calorie malnutrition Acute respiratory failure with hypoxia Emphysema, unspecified Peripheral vascular disease, unspecified Enterocolitis due to Clostridium difficile, not specified as recurrent Acute kidney failure, unspecified Leakage of aortic (bifurcation) graft (replacement), subsequent encounter Abdominal aortic aneurysm, ruptured, unspecified Home Medications ?Medication ?Instructions ?Recorded ?Last Taken ?Type aspirin 81 mg tablet,delayed 81 mg PO DAILY 03/11/24 07/23/24 History release (Adult Aspirin Regimen) Held on 08/14/24. Instructions: Ordered atorvastatin 20 mg tablet 20 mg PO QHS 03/11/24 07/22/24 History metoprolol tartrate 25 mg tablet 25 mg PO BID 03/11/24 07/22/24 History thiamine HCl (vitamin B1) 100 mg 100 mg PO BID 04/11/24 07/23/24 History tablet cyclobenzaprine 5 mg tablet 5 mg PO Q8H PRN MUSCLE SPASMS 06/05/24 07/10/24 History Lactobacillus rhamnosus GG 10 1 cap PO DAILY 07/18/24 07/23/24 History billion cell capsule (Culturelle) acetaminophen 325 mg tablet 650 mg PO Q4H PRN fever 07/18/24 Unknown History aluminum-magnesium hydroxide 200 30 ml PO Q4H PRN GI DISTRESS 07/18/24 Unknown History mg-200 mg/5 mL oral suspension amlodipine 5 mg tablet 5 mg PO QHS 07/18/24 07/22/24 History docusate sodium 100 mg tablet 100 mg PO BID PRN constipation 07/18/24 Unknown History dronabinol 2.5 mg capsule (Marinol) 2.5 mg PO BID 07/18/24 07/23/24 History guaifenesin 100 mg/5 mL oral liquid 200 mg PO Q4H PRN cough 07/18/24 07/14/24 History levothyroxine 200 mcg tablet 200 mcg PO DAILY 07/18/24 07/23/24 History midodrine 10 mg tablet 10 mg PO DAILY PRN for SBP lower 07/18/24 Unknown History than 110 during dialysis tx ondansetron 4 mg disintegrating 4 mg PO DAILY PRN nausea and 07/18/24 Unknown History tablet vomiting oxycodone 5 mg tablet 5 mg PO Q6H PRN pain 07/18/24 07/22/24 History polyethylene glycol 3350 17 17 g PO QODAY 07/18/24 07/21/24 History gram/dose oral powder sennosides 8.6 mg-docusate sodium 1 tab-cap PO DAILY PRN constipation 07/18/24 Unknown History 50 mg tablet (Senna Plus) sertraline 25 mg tablet 25 mg PO DAILY 07/18/24 07/23/24 History vitamin B complex-vitamin C-folic 1 tab PO DAILY 07/18/24 07/23/24 History acid 0.8 mg tablet (Renal Vitamin) bisacodyl 10 mg rectal suppository 10 mg MI DAILY PRN constipation 07/31/24 Unknown History cholecalciferol (vitamin D3) 125 125 mcg PO DAILY 07/31/24 Unknown History mcg (5,000 unit) capsule glucagon HCl 1 mg solution for 1 mg IM Q20M PRN hypoglycemia 07/31/24 Unknown History injection (Glucagon (HCl) Emergency Kit) ascorbic acid (vitamin C) 500 mg 500 mg PO DAILY #0 tabs 08/13/24 Unknown Rx tablet ferrous sulfate 325 mg (65 mg 325 mg PO QODAY #30 tabs 08/13/24 Unknown Rx iron) tablet loperamide 2 mg capsule 2 mg PO Q4H PRN DIARRHEA #0 caps 08/13/24 Unknown Rx pantoprazole 40 mg tablet,delayed 40 mg PO BID #0 tabs 08/13/24 Unknown Rx release acetaminophen 650 mg rectal 650 mg MI Q4H PRN fever or pain 08/14/24 Unknown History suppository dextrose 40 % oral gel (Glucose 10 g PO Q15M PRN hypoglycemia 08/14/24 Unknown History Gel) mirtazapine 15 mg tablet 15 mg PO QHS 08/14/24 Unknown History sodium phosphates 19 gram-7 118 ml MI DAILY PRN constipation 08/14/24 Unknown History gram/118 mL enema (Enema) Allergy/AdvReac Type Severity Reaction Status Date / Time iodine Allergy Intermediate Nausea Verified 08/14/24 07:32 shellfish derived Allergy Intermediate Nausea Verified 08/14/24 07:32 Social History Smoking Status: Former smoker Tobacco: How many years used: 40 alcohol intake: former substance use type: does not use ROS ROS Narrative 14 system ROS limited because patient could not answer multiple questions she said I do not remember or does not know. Constitutional: Reports chronic fatigue and weakness. Always feel cold, was just discharged yesterday. HEENT: Reports systems reviewed and no addt'l complaints, except as documented Respiratory/Chest: Severe shortness of breath. On 15 L of nonrebreather by EMS CVS: No chest pain. Gastrointestinal: Has PEG tube. Left abdominal wall wound healing. Denies coffee ground emesis, hematemesis or vomiting Genitourinary: Denies burning urination or new urinary tract symptoms Musculoskeletal: Generalized muscle weakness, paraparesis. ROM limited Neurologic: Denies seizure-like symptoms. skin:Left abdominal wall wound healing. Endocrinology: Reports systems reviewed and no addt'l complaints, except as documented Hematologic/Lymphatic: Reports systems reviewed and no addt'l complaints, except as documented Vital Signs Vital Signs Vital Signs: 08/14/24 07:25 08/14/24 07:33 08/14/24 07:38 Temperature 97.2 F L Temperature Source Temporal Pulse Rate 122 H Respiratory Rate 26 H Respiratory Effort Short of Breath Labored Accessory Muscle Use Nasal Flaring Respiratory Depth Shallow Respiratory Pattern Tachypnea Blood Pressure 157/101 H Blood Pressure Mean 119 Pulse Ox 89 Oxygen Delivery Method Non-Rebreather Non-Rebreather Non-Rebreather Oxygen Flow Rate (L/min) 15 15 08/14/24 07:49 08/14/24 08:25 08/14/24 09:00 Temperature 97.4 F L Temperature Source Temporal Pulse Rate 119 H 110 H 103 H Respiratory Rate 20 H 21 H 18 Respiratory Effort Respiratory Depth Respiratory Pattern Normal Blood Pressure 135/68 H 127/63 H Blood Pressure Mean 90 84 Pulse Ox 98 98 Oxygen Delivery Method Nasal Cannula Room Air Oxygen Flow Rate (L/min) 3 08/14/24 10:00 08/14/24 11:00 08/14/24 12:20 Temperature 97.0 F L 98.6 F 97.8 F Temperature Source Temporal Temporal Pulse Rate 95 91 90 Respiratory Rate 20 H 23 H 17 Respiratory Effort Respiratory Depth Respiratory Pattern Blood Pressure 131/75 H 136/80 H 95/70 Blood Pressure Mean 93 98 78 Pulse Ox 96 98 94 Oxygen Delivery Method Nasal Cannula Nasal Cannula Oxygen Flow Rate (L/min) 4 Weight Weight: 123 lb 7.342 oz Body Mass Index (BMI) 16.7 Physical Exam Narrative Physical exam General: Alert, Oriented x3, Cooperative, but gets easily irritable severely chronic malnourished. BMI 16.7 kg/m? HEENT: Atraumatic, PERRLA, EOMI, Normocephalic Oral: No Gingival or Mucosal Lesions/ Ulcerations Neck: Supple, No JVD, Negative Carotid Bruits Chest wall/Lungs: Air entry diminished in bilateral lung bases. No crepitation/rhonchi Cardiovascular: Regular rate, Regular Rhythm, Normal S1, Normal S2, No M/G/R Abdomen: PEG tube. Dressing on the left upper quadrant abdominal wall ulcer, healing with granulation tissue. Bowel Sounds Present, soft, nontender : No dysuria. No renal angle tenderness. No suprapubic tenderness. Extremities: Bilateral pitting edema from thigh downward, stage II decubitus coccygeal ulcer present on admission since last admission Musculoskeletal: No Tenderness to Palpation of Joints or Extremities, chronic severe muscle atrophy. ROM restricted Neurological: Cranial nerves II-XII grossly intact, DTR 2+/4. Muscle power 4/5 at major joints Psych/Mental Status: Flat affect, amnesia/MCI Results Lab / Micro Data 08/14/24 07:48 08/14/24 07:48 Labs: Laboratory Results - last 24 hr 08/14/24 07:48: WBC 9.0, RBC 3.09 L, Hgb 8.7 L, Hct 29.0 L, MCV 93.9, MCH 28.2, MCHC 30.0 L, RDW Std Deviation 70.0 H, RDW Coeff of Monika 21.0 H, Plt Count 147 L, MPV 10.2, Immature Gran % (Auto) 3.300 H, Neut % (Auto) 79.5 H, Lymph % (Auto) 8.6 L, [place] % (Auto) 6.1, Eos % (Auto) 1.9, Baso % (Auto) 0.6, Absolute Neuts (auto) 7.1, Absolute Lymphs (auto) 0.77 L, Nucleated RBC % 0, Polychromasia RARE, Anisocytosis RARE, PT 14.6, INR 1.1, APTT 33.6, Sodium 131 L, Potassium 5.4 H, Chloride 104, Carbon Dioxide 19.2 L, Anion Gap 9, BUN 39 H, Creatinine 1.34 H, Estim Creat Clear Calc 38.48 L, Est GFR (MDRD) Non-Af 45 L, BUN/Creatinine Ratio 29.1 H, Glucose 85, Lactic Acid 3.1 H*, Calcium 7.8, Total Bilirubin 0.18, AST 29, ALT 9, Alkaline Phosphatase 71, Troponin T High Sens 224 H* D, Total Protein 5.5 L, Albumin 2.0 L, Globulin 3.4, Albumin/Globulin Ratio 0.6 L 08/14/24 08:48: Urine Color Yellow, Urine Clarity Sl. Cloudy, Urine pH 8.0, Ur Specific [place] 1.010, Urine Protein 30 H, Urine Glucose (UA) Normal, Urine Ketones Negative, Urine Occult Blood 25 H, Urine Nitrite Negative, Urine Bilirubin Negative, Urine Urobilinogen Normal, Ur Leukocyte Esterase 500 H, Urine RBC 0-5 SEEN, Urine WBC 25-50 SEEN, Ur Squamous Epith Cells 0-5 SEEN, Calcium Oxalate Crystal 1+, Urine Bacteria 0 SEEN, Urine Mucus 0 SEEN 08/14/24 10:10: Troponin T Hi Sens 2 Hr 221 H* Micro: Microbiology 08/14/24 07:35 Mucosa - Nose SARS-CoV-2, Influenza & RSV (PCR) - Final ABG Data ABG results: ABG 08/14/24 08:32 Specimen Type ART Sample Site R Radial pH 7.36 Bicarbonate Actual 22.0 Total CO2 23 Base Excess -3 L O2 Saturation 98 O2 % 44.0 ABG pCO2 39.1 ABG pO2 105 H Milad Test Positive O2 Delivery Device Cannula Vent Mode Not entered Imaging Radiology Impression Chest X-Ray 08/14/24 08:33 IMPRESSION: 1. Pulmonary congestion and edema. Pneumonia cannot be excluded. 2. Bilateral pleural effusions. Reading Location: [facility] Assessment & Plan Assessment/Plan (1) Pulmonary edema: (2) Anasarca: PLAN: Plan This is a 64-year-old female being admitted for shortness of breath, tachypnea and dyspnea, bilateral lower extremity edema and chest x-ray finding of small to moderate bilateral effusion and pleural treatment 1. Pulmonary edema/anasarca due to ESRD on hemodialysis and possible heart failure: Patient is being admitted in PCU. 2D echo is ordered. Heart failure core measures including intake and output, fluid restriction less than 1500 mL, daily weight monitoring, light Naif wrap bandage, kidney and electrolytes monitoring. Lasix 40 mg IV 1 dose ordered. 2. Bilateral pleural effusion, small to moderate: This was present on the previous CT chest does not seem increased. Chest ultrasound with diagnostic thoracocentesis and fluid analysis labs ordered to confirm whether enough fluid for thoracocentesis but from chest x-ray discussed with Prodigiously and seems small pleural effusion 3. Recent PEG tube bumper ruptured with complex abdominal fluid collection in the abdominal cavity and the abnormal CT abdomen during last admission: Patient had 8 days of IV Zosyn during last admission. EGD on 08/03/2024 reviewed Impressions : - Normal esophagus. - Dislodged gastrostomy tube present characterized by ulceration. Treated with argon plasma coagulation (APC). - A non-bleeding large defect due to buried peg tube bumper was found in the stomach. Clips were placed. - No gross lesions in the duodenal bulb. Continue tube feed feeding. 4. Severe anemia that required blood transfusion during last admission from CKD/ruptured PEG tube: Her hemoglobin was 6.6 on 08/12 increased to 8.7. MCV normal. Platelet count 100 47K. Monitor hemoglobin. Anticoagulants contraindicated. She required PRBC transfusion during last admission 5 severe protein-calorie malnutrition: Her BMI was 12.6 kg/m?. Increased to 16.7 kg/m?. Continue nutrition consult and follow-up. On tube feed Jevity 1.5, 50 cc/h. 6. Chronic Open abdominal wall wound: Chronic since February 2024. Had wound VAC at that time. Continue follow-up with the wound care. Healing good. 6. End stage renal disease: Secondary to ATN from hemorrhagic shock and never had recovery. Patient on dialysis every Monday. Nephrology consulted 7. Factor V Leiden deficiency hold off on her aspirin for now. 8. Hypertension: BP usually normal 1 31-1 36 and drops 95/70 during hemodialysis on Lasix. Hold antihypertensive medication no 9. Hypothyroidism: Continue levothyroxine 10. History of C. difficile: During previous admission C. difficile antigen was positive but toxin is negative. Does not have active symptoms abdominal pain or cramps or diarrhea. No treatment indicated 11. Depression: Continue sertraline. 12. 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 After discussion of benefits/risks procedures involved with full code, DNR CC arrest and DNR CC, the patient opted for DNR CC arrest with no intubation. I explained the risk and benefit of CPR or intubation, DC shock, central line. Patient doesn't want artificial life support including intubation, ventilator and/chest compression but want central venous catheter, vasopressor and DC shock if needed Total time spent in [id number] encounter in discussion of advanced directive 17 minutes. Charges/Coding Visit Charges Inpatient E&M: 75550 Init Hosp L3 Procedures Hospitalists Procedures: 08871 Advncd Care Plan 30 Min
[2024-08-14 12:27] LABS: Magnesium 1.4 mg/dL (1.5-2.2)
--- NOTE | 2024-08-14 12:50 | ECHOD_ITS ---
Reason For Study Reason For Study: SOB Procedure This was a 2D Doppler, Color Flow transthoracic echocardiogram. Exam performed portable in patient room. Left Ventricle Normal LV size. The left ventricular ejection fraction is 40 %. No regional wall motion abnormalities noted. Right Ventricle Normal RV size. Normal systolic function. Atria The left atrium is moderately enlarged. Normal right atrium. Mitral Valve Bileaflet diffuse mitral valve thickening. Moderate (2+) eccentric mitral valve insufficiency. Tricuspid Valve Normal tricuspid valve. Aortic Valve Trisinus/trileaflet aortic valve. Moderate focal aortic valve calcification. Pulmonic Valve Normal pulmonic valve. Great Vessels Normal aortic root. Pericardium/Pleural No pericardial effusion. MMode/2D Measurements & Calculations LVIDd: 4.7 cm IVSd: 0.88 cm Ao root diam: 3.4 cm LVIDs: 3.5 cm LVPWd: 1.0 cm RVDd: 2.5 cm FS: 24.9 % LAV(MOD-bp): 111.8 ml LVAd ap4: 29.3 cm2 SV(MOD-sp4): 36.8 ml LAV(MOD-bp) Indexed: 64.5 ml/m2 LVLd ap4: 7.6 cm SI(MOD-sp4): 21.2 ml/m2 LAV(MOD-sp2): 107.0 ml EDV(MOD-sp4): 99.3 ml LAV(MOD-sp4): 105.8 ml EDV(sp4-el): 95.1 ml LVAs ap4: 21.8 cm2 LVLs ap4: 6.8 cm ESV(MOD-sp4): 62.6 ml ESV(sp4-el): 59.7 ml EF(MOD-sp4): 37.0 % EF(sp4-el): 37.3 % SV(sp4-el): 35.5 ml LA A4 area: 26.2 cm2 LA dimension(2D): 3.9 cm TAPSE: 1.9 cm Time Measurements MV dec time: 0.10 sec Doppler Measurements & Calculations MV E max tien: 103.4 cm/sec Lat Peak E' Tien: 9.8 cm/sec Med Peak E' Tien: 7.9 cm/sec MV A max tien: 92.5 cm/sec E/E' lat: 10.6 E/E' med: 13.2 MV E/A: 1.1 MV V2 max: 107.6 cm/sec MV P1/2t max tien: 91.7 cm/sec Ao V2 max: 159.0 cm/sec MV max P.6 mmHg MV P1/2t: 41.5 msec Ao max P.1 mmHg MV V2 mean: 74.4 cm/sec MV dec slope: 647.0 cm/sec2 Ao V2 mean: 107.4 cm/sec MV mean P.4 mmHg Ao mean P.3 mmHg MV V2 VTI: 26.1 cm MVA(P1/2t): 5.3 cm2 Ao V2 VTI: 29.8 cm AV (velocity ratio): 0.62 LV V1 max: 93.4 cm/sec PA V2 max: 91.7 cm/sec TR max tien: 286.9 cm/sec LV V1 max P.5 mmHg TR max P.9 mmHg LV V1 mean P.9 mmHg LV V1 mean: 63.8 cm/sec LV V1 VTI: 18.4 cm ECHO/Echo Complete Interpretation Summary The left ventricular ejection fraction is 40 %. Normal LV size. No regional wall motion abnormalities noted. The left atrium is moderately enlarged. The global longitudinal strain is moderately abnormal. The global longitudinal strain = -11.8% (abnormal). Ordering Physician: Nikolas Magaña Referring Physician: Millie Massey Performed By: Janessa Dominique, TENISHACS, RVT
--- NOTE | 2024-08-14 12:51 | VDUE_ITS ---
Reason For Study Reason For Study: AVF creation pre op Right Arm Left Arm Cephalic Vein at distal forearm measures 0.08 x 0.10 Cephalic Vein at distal forearm measures 0.06 x 0.07 cm. cm. Cephalic Vein at mid forearm measures 0.10 x 0.10 cm. Cephalic Vein at mid forearm measures 0.06 x 0.06 cm. Cephalic Vein proximal forearm measures 0.05 x 0.06 Cephalic Vein proximal forearm measures 0.10 x 0.10 cm. cm. Cephalic V in the bicep not visualized. Cephalic V in the bicep not visualized. Proximal Basilic vein measures 0.22 x 0.22 cm. Proximal Basilic vein measures 0.14 x 0.14 cm. Mid Basilic vein measures 0.23 x 0.28 cm. Mid Basilic vein measures 0.18 x 0.20 cm. Distal Basilic vein measures 0.18 x 0.17 cm. Distal Basilic vein measures 0.19 x 0.20 cm. Basilic V is partially compressible with bright Basilic V is partially compressible with bright intraliuminal echeos consistent with Chronic SVT. intraliuminal echeos consistent with Chronic SVT. Brachial artery measures 0.30 x 0.29 cm with a Brachial artery measures 0.25 x 0.25 cm with a velocity of 77.3 cm/sec. velocity of 87.7 cm/sec. Radial artery measures 0.13 x 0.14 cm with a velocity Radial artery measures 0.09 x 0.09 cm with a velocity of 60.4 cm/sec. of 60.1 cm/sec. VL/Dialysis Vein Map PRE-OP BILAT Interpretation Summary The superficial veins of the upper extremities, the basilic and cephalic veins, appear patent bilaterally, and segmental dimensions are documented. The cephalic vein at bicep level was not visualized on either side. The basilic veins are partially compressible with bright intraluminal echogenicity, demonstrating chr onic venous changes bilaterally. The brachial and radial arteries appear patent bilaterally, with dimensions as docu mented. Ordering Physician: Meghan Alfaro Referring Physician: Millie Massey Performed By: Sherly Barnard RVT ???
--- NOTE | 2024-08-14 15:11 | CASEMGMT ---
YVONNE received a call from Anitra with [facility]. Anitra said patient was adamant that they send her to the hospital and not to dialysis. Nori YOUSIF
[2024-08-14 15:23] LABS: LDH 239 U/L (84-246); Protein, Total 5.4 g/dL (5.9-8.4)
--- NOTE | 2024-08-14 15:40 | CM.ED ---
Social Work SW entered room, introduced self and role with [facility]. Patient stated her goal post discharge was to return to [facility]. No other needs identified at this time. Micheline Fernandez, MANAGER STARS, IMPLANT POLISHER
[2024-08-14] MEDS: 0.9% Normal Saline 1,000 ML IV.SOLN. 1000 ML OPERA.SITE (15:57)
[2024-08-14] MEDS: PureFlow B 2K Dialysis Soln 1 BAG 6 BAG PF (15:57)
[2024-08-14] MEDS: Acetaminophen 500 MG Tablet 1000 MG NG (16:01)
[2024-08-14] MEDS: Midodrine HCl 5 MG Tablet 10 MG PO (16:01)
[2024-08-14] MEDS: Epoetin Alfa epbx 10,000 UNIT/ML 20000 UNIT IV (16:02)
[2024-08-14] MEDS: 0.9% Saline Lock 10 ML Syringe IV (16:34)
[2024-08-14] MEDS: Heparin 10,000 UNITS/10 ML Vial IV (16:34)
[2024-08-14 16:53] LABS: Glucose 79 mg/dL (70-99)
[2024-08-14] MEDS: Jevity 1.5 1,000 ML 50 ML GT (17:45)
[2024-08-14 19:49] LABS: Bedside Glucose 137 mg/dL (74-106)
[2024-08-15] VITALS (9 sets, daily range): BP systolic 119–137; BP diastolic 64–83; PULSE 18–89; RESP 16–93; TEMP 36.1–36.9; O2SAT 92–100; BMI 16.0
[2024-08-15 05:40] LABS: Absolute Lymphocyte Count 0.45 X10^3/uL (0.83-4.51); Absolute Neutrophil Count 3.2 X10^3/uL (2.0-7.7); Basophil# 0.03 X10^3/uL; Basophil% 0.7 % (0-1); Eosinophils% 2.4 % (0-5); Hematocrit 24.6 % (37-47); Hemoglobin 7.6 g/dL (12.0-15.0); Lymphocyte # 0.45 X10^3/ul (0.83-4.51); Lymphocyte % 10.9 % (19-41); Mean Corp Hgb Conc 30.9 g/dL (32-36); Mean Corpuscular Volume 90.8 fL (81-99); Mean Platelet Vol. 10.8 fl (6.2-12.0); Monocyte# 0.29 X10^3/uL; NRBC Flagged by Analyzer 0 % (0-5); Neutrophil # 3.17 X10^3/uL (2.7-7.7); Neutrophil % 76.6 % (47-70); POSITIVE DIFFERENTIAL YES; POSITIVE MORPHOLOGY YES; Platelet Count 159 K/mm3 (150-450); RBC Distribution Width CV 21.3 % (11.6-14.6); RBC Distribution Width SD 69.5 fl (35.1-43.9); Red Blood Count 2.71 M/mm3 (4.2-5.4); White Blood Count 4.1 K/mm3 (4.4-11.0)
[2024-08-15 05:45] LABS: Differential Indicated SCAN CRITERIA MET
[2024-08-15 06:10] LABS: Bedside Glucose 104 mg/dL (74-106)
[2024-08-15 06:22] LABS: Cholesterol 62 mg/dL (<=200); High Density Lipoprotein 25 mg/dL; Low Density Lipoprotein Calc. 23 mg/dL; Triglycerides 71 mg/dL; Very Low Density Lipoprotein 14 mg/dL (5-40); cholesterol:hdl ratio screen 2.48
[2024-08-15 06:33] LABS: Pro- Brain NATRIURETIC PEPTIDE 66642 pg/mL (<=900)
[2024-08-15 07:19] LABS: Anisocytosis 1+
--- NOTE | 2024-08-15 08:11 | PN.HOSP_ITS ---
Reason for Visit Reason for Visit: Diagnoses Chronic pulmonary edema (08/14/24) Generalized edema (08/14/24) Objective Data Objective Data Vital Signs: Vital Signs Temp Pulse Resp BP Pulse Ox O2 Del Method O2 Flow Rate 97 F L 87 16 119/64 100 Nasal Cannula 2 08/15/24 02:07 08/15/24 02:07 08/15/24 02:07 08/15/24 02:07 08/15/24 02:07 08/15/24 02:07 08/15/24 02:07 Oxygen Flow Rate (L/min) 2 Oxygen Delivery Method Nasal Cannula Weight: 117 lb 15.157 oz Body Mass Index (BMI) 16.0 Intake & Output: Intake and Output for Last 24 Hours 08/13/24 08/14/24 08/15/24 23:59 23:59 23:59 Intake Total 1305 / 1305 500 / 500 Output Total 4168 / 4168 1759 / 1759 Balance -2863 / -2863 -1259 / -1259 Lab / Micro Data 08/15/24 04:47 08/14/24 16:06 Labs: Laboratory Results - last 24 hr 08/14/24 07:48: WBC 9.0, RBC 3.09 L, Hgb 8.7 L, Hct 29.0 L, MCV 93.9, MCH 28.2, MCHC 30.0 L, RDW Std Deviation 70.0 H, RDW Coeff of Monika 21.0 H, Plt Count 147 L, MPV 10.2, Immature Gran % (Auto) 3.300 H, Neut % (Auto) 79.5 H, Lymph % (Auto) 8.6 L, [place] % (Auto) 6.1, Eos % (Auto) 1.9, Baso % (Auto) 0.6, Absolute Neuts (auto) 7.1, Absolute Lymphs (auto) 0.77 L, Nucleated RBC % 0, Polychromasia RARE, Anisocytosis RARE, PT 14.6, INR 1.1, APTT 33.6, Sodium 131 L, Potassium 5.4 H, Chloride 104, Carbon Dioxide 19.2 L, Anion Gap 9, BUN 39 H, Creatinine 1.34 H, Estim Creat Clear Calc 38.48 L, Est GFR (MDRD) Non-Af 45 L, B UN/Creatinine Ratio 29.1 H, Glucose 85, Lactic Acid 3.1 H*, Calcium 7.8, Phosphorus 3.0, Magnesium 1.4 L, Total Bilirubin 0.18, AST 29, ALT 9, Alkaline Phosphatase 71, Lactate Dehydrogenase 239, Troponin T High Sens 224 H* D, Total Protein 5.5 L 08/14/24 07:48: Total Protein 5.4 L, Albumin 2.0 L, Globulin 3.4, A lbumin/Globulin Ratio 0.6 L 08/14/24 08:48: Urine Color Yellow, Urine Clarity Sl. Cloudy, Urine pH 8.0, Ur Specific [place] 1.010, Urine Protein 30 H, Urine Glucose (UA) Normal, Urine Ketones Negative, Urine Occult Blood 25 H, Urine Nitrite Negative, Urine Bilirubin Negative, Urine Urobilinogen Normal, Ur Leukocyte Esterase 500 H, Urine RBC 0-5 SEEN, Urine WBC 25-50 SEEN, Ur Squamous Epith Cells 0-5 SEEN, Calcium Oxalate Crystal 1+, Urine Bacteria 0 SEEN, Urine Mucus 0 SEEN 08/14/24 10:10: Troponin T Hi Sens 2 Hr 221 H* 08/14/24 16:06: Glucose 79 08/14/24 19:01: POC Glucose 137 H 08/15/24 04:47: WBC 4.1 L, RBC 2.71 L, Hgb 7.6 L, Hct 24.6 L, MCV 90.8, MCH 28.0, MCHC 30.9 L, RDW Std Deviation 69.5 H, RDW Coeff of Monika 21.3 H, Plt Count 159, MPV 10.8, Immature Gran % (Auto) 2.400 H, Neut % (Auto) 76.6 H, Lymph % (Auto) 10.9 L, [place] % (Auto) 7.0, Eos % (Auto) 2.4, Baso % (Auto) 0.7, Absolute Neuts (auto) 3.2, Absolute Lymphs (auto) 0.45 L, Nucleated RBC % 0, Anisocytosis 1+, [place] [address] H, Triglycerides 71, Cholesterol 62, LDL Cholesterol, Calc 23, VLDL Cholesterol 14, HDL Cholesterol 25 L, Cholesterol/HDL Ratio 2.48, TSH 10.600 H 08/15/24 05:51: POC Glucose 104 Micro: Microbiology 08/14/24 07:35 Mucosa - Nose SARS-CoV-2, Influenza & RSV (PCR) - Final ABG Data ABG results: ABG 08/14/24 08:32 Specimen Type ART Sample Site R Radial pH 7.36 Bicarbonate Actual 22.0 Total CO2 23 Base Excess -3 L O2 Saturation 98 O2 % 44.0 ABG pCO2 39.1 ABG pO2 105 H Milda Test Positive O2 Delivery Device Cannula Vent Mode Not entered Radiography Diagnostic Testing: Radiology Impression Chest X-Ray 08/14/24 08:33 IMPRESSION: 1. Pulmonary congestion and edema. Pneumonia cannot be excluded. 2. Bilateral pleural effusions. Reading Location: [facility] Physical Exam Narrative Physical exam General: Alert, Oriented x3, Cooperative, BMI 16.7 kg/m? HEENT: Atraumatic, PERRLA, EOMI, Normocephalic Oral: No Gingival or Mucosal Lesions/ Ulcerations Neck: Supple, No JVD, Negative Carotid Bruits Chest wall/Lungs: Air entry diminished in bilateral lung bases. No crepitation/rhonchi Cardiovascular: Regular rate, Regular Rhythm, Normal S1, Normal S2, No M/G/R Abdomen: PEG tube. Dressing on the left upper quadrant abdominal wall ulcer, healing with granulation tissue. Bowel Sounds Present, soft, nontender : No dysuria. No renal angle tenderness. No suprapubic tenderness. Extremities: Bilateral pitting edema from thigh downward, stage II decubitus coccygeal ulcer present on admission since last admission Musculoskeletal: No Tenderness to Palpation of Joints or Extremities, chronic severe muscle atrophy. ROM restricted Neurological: Cranial nerves II-XII grossly intact, DTR 2+/4. Muscle power 4/5 at major joints Psych/Mental Status: Flat affect, amnesia/MCI Assessment & Plan Assessment/Plan (1) Pulmonary edema: (2) Anasarca: PLAN: Plan This is a 64-year-old female being admitted for shortness of breath, tachypnea and dyspnea, bilateral lower extremity edema and chest x-ray finding of small to moderate bilateral effusion and pleural treatment 1. Pulmonary edema/anasarca due to ESRD on hemodialysis and possible heart failure: Patient is being admitted in PCU. 2D echo is ordered. Heart failure core measures including intake and output, fluid restriction less than 1500 mL, daily weight monitoring, light Naif wrap bandage, kidney and electrolytes monitoring. Lasix 40 mg IV 1 dose ordered. 08/15: Patient shortness of breath got much better after dialysis yesterday. Currently on 2 L of oxygen 2. Bilateral pleural effusion, small to moderate: This was present on the previous CT chest does not seem increased. Chest ultrasound with diagnostic thoracocentesis and fluid analysis labs ordered to confirm whether enough fluid for thoracocentesis but from chest x-ray discussed with Dr. Fox Contreras and seems small pleural effusion 3. Recent PEG tube bumper ruptured with complex abdominal fluid collection in the abdominal cavity and the abnormal CT abdomen during last admission: Patient had 8 days of IV Zosyn during last admission. EGD on 08/03/2024 reviewed Impressions : - Normal esophagus. - Dislodged gastrostomy tube present characterized by ulceration. Treated with argon plasma coagulation (APC). - A non-bleeding large defect due to buried peg tube bumper was found in the stomach. Clips were placed. - No gross lesions in the duodenal bulb. Continue tube feed feeding. 4. Severe anemia that required blood transfusion during last admission from CKD/ruptured PEG tube: Her hemoglobin was 6.6 on 08/12 increased to 8.7. MCV normal. Platelet count 100 47K. Monitor hemoglobin. Anticoagulants contraindicated. She required PRBC transfusion during last admission 08/15: H&H is 7.3/24.6%. Monitor CBC. 5 severe protein-calorie malnutrition: Her BMI was 12.6 kg/m?. Increased to 16.7 kg/m?. Continue nutrition consult and follow-up. On tube feed Jevity 1.5, 50 cc/h. 6. Chronic Open abdominal wall wound: Chronic since February 2024. Had wound VAC at that time. Continue follow-up with the wound care. Healing good. End stage renal disease: Secondary to ATN from hemorrhagic shock and never had recovery. Patient on dialysis every Monday. Test Engineer consulted 08/15: She feels much better after dialysis. 7. Factor V Leiden deficiency hold off on her aspirin for now. 8. Hypertension: BP usually normal 131-136 and drops 95/70 mmHg during hemodialysis on Lasix. Hold antihypertensive medication. 9. Hypothyroidism: Continue levothyroxine 10. History of C. difficile: During previous admission, C. difficile antigen was positive but toxin is negative. Does not have active symptoms abdominal pain or cramps or diarrhea. No treatment indicated 11. Depression: Continue sertraline. 12. 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 Present since last admission VTE prophylaxis with SCDs for now Living will/advanced directive/end of life care: Patient does not have living will or advanced directive but has legal power of litigation attorney for health.. After discussion of benefits/risks procedures involved with full code, DNR CC arrest and DNR CC, the patient opted for DNR CC arrest with no intubation. I explained the risk and benefit of CPR or intubation, DC shock, central line. Patient doesn't want artificial life support including intubation, ventilator and/chest compression but want central venous catheter, vasopressor and DC shock if needed Microbiology Past 72 Hours 08/15/24 09:19 Fluid - Pleural (Lung) Gram Stain - Final 08/14/24 08:48 Urine Catheter - Gutiérrez Urine Culture - Preliminary GPC Poss Enterococcus sp GNR lactose editor newspaper 08/14/24 07:35 Mucosa - Nose SARS-CoV-2, Influenza & RSV (PCR) - Final Laboratory Results 08/14/24 19:01: POC Glucose 137 H 08/15/24 04:47: WBC 4.1 L, RBC 2.71 L, Hgb 7.6 L, Hct 24.6 L, MCV 90.8, MCH 28.0, MCHC 30.9 L, RDW Std Deviation 69.5 H, RDW Coeff of Monika 21.3 H, Plt Count 159, MPV 10.8, Immature Gran % (Auto) 2.400 H, Neut % (Auto) 76.6 H, Lymph % (Auto) 10.9 L, [place] % (Auto) 7.0, Eos % (Auto) 2.4, Baso % (Auto) 0.7, Absolute Neuts (auto) 3.2, Absolute Lymphs (auto) 0.45 L, Nucleated RBC % 0, Anisocytosis 1+, [place] [address] H, Triglycerides 71, Cholesterol 62, LDL Cholesterol, Calc 23, VLDL Cholesterol 14, HDL Cholesterol 25 L, Cholesterol/HDL Ratio 2.48, TSH 10.600 H 08/15/24 05:51: POC Glucose 104 08/15/24 09:02: Fluid pH Pending, Fluid Glucose 111, Fluid Total Protein 1.9, Fluid LDH 51, Fluid Amylase Pending 08/15/24 09:20: Fluid Source THORACENTESIS, Fluid Color LT YEL, Fluid Appearance CLEAR, Fluid WBC 0.023, Fluid RBC 6, Fluid Tot Cell Count 0.024 H, Fld Polynuclear WBCs # 0.002, Fld Polynuclear WBCs % 8.7, Fluid Mononuclear WBCs 0.021, Fld Mononuclear WBCs % 91.3, Fluid Neutrophils 4, Fluid Lymphocytes 32, Fluid Monocytes 60, Fld Mesothelial Cells 4, Fl Pathologist Comment May follow, Fluid Comment 2 SEE COMMENT 08/15/24 09:25: Miscellaneous Cytology Pending 08/15/24 10:01: POC Glucose 70 L 08/15/24 15:45: POC Glucose 90 Charges/Coding Visit Charges Inpatient E&M: 48192 Subs Hosp L2
--- NOTE | 2024-08-15 09:02 | FLU_PTH ---
PATIENT: SCOTT OBREGON LOC: [facility] U#:[id number] AGE/SX: 64/F ROOM: [facility] RE08/14/[address]: Dr. Nikolas Magaña MD : 1960 BED: 1 DIS: 08/17/2024 SPEC #: [id number] RECD: 08/15/24 09:23 STATUS: SURTHI RECristofer #: [id number] DMITRIY: 08/15/24 09:[address]: Nikolas Magaña DEPT: CYTOLOGY RECD BY: Genesis Ha ENTERED: 08/15/24 11:20 SP TYPE: Fluid OTHR DR: MD Dr. Millie Veliz MD Tissues: A - THORACIC FLUID Procedures: Special Stain Group II Surgery Specimen Level IV Cytospin Fluid HEADER OPERATION: Ultrasound guided thoracentesis PRE-OP DIAGNOSIS: Bilateral effusion TISSUE SUBMITTED: A- Thoracentesis fluid for cytology DIAGNOSIS CYTOLOGY Thoracentesis fluid, cytology:Negative for malignant cellsBenign-appearing mesothelial cells, histiocytes, lymphocytes, and neutrophilsSadie Mendez MD, 08/24/2024 CYTOLOGY STUDY Slides are reviewed. CYTOLOGY GROSS A. Received is 74 ml of yellow-cloudy fluid labeled with the patient's name and and designated per the requisition as Thoracentesis fluid. Submitted for cytology. Mr 08/15/2024 CPT: 86038, TC:4
--- NOTE | 2024-08-15 09:09 | OP.PCM_ITS ---
Problems Associated Problem List Diagnoses (1) Pleural effusion: Multi Select Codes Radiology Radiology US Procedures: 43455 Thoracentesis Operative Report (Standard) Operative Information Date of Procedure: 08/15/24 Pre-Operative Diagnosis: Pleural effusion Post-Operative Diagnosis: Pleural effusion Surgery/Procedure Performed: Ultrasound-guided thoracentesis chief operations officer: No Type of Anesthesia: Local Procedure Start Time: 08:57 Procedure Stop Time: 09:05 Select all DRAINS/GRAFTS/IMPLANTS that apply: None Estimated Blood Loss: 0 Specimen collected: Yes Description of specimen(s) removed: 100 mL of clear yellow fluid Description of surgery: PROCEDURE: Ultrasound Guided Thoracentesis ORDERING PROVIDER: Dr. Magaña INDICATION: Female, 64 years old. Bilateral pleural effusion. PROVIDER: JOHN Pinto PROCEDURE: The risks, benefits, and alternatives to the procedure were explained to the patient. The specific risks of bleeding, infection, and pneumothorax requiring chest tube insertion were discussed and accepted. Written informed consent was obtained. The case was discussed with interventional radiologist Dr. Haas prior to performing the procedure. The patient was placed in the sitting, upright position. Ultrasonographic evaluation of the bilateral lower pleural spaces was carried out. Bilateral pleural effusions were identified; however, it is safest to perform a unilateral drainage at this time. An adequate pocket was identified in the left lower pleural space. The overlying skin was prepped with chlorhexidine and draped in sterile fashion. 2 % lidocaine was administered subcutaneously for local anesthesia. Under ultrasound guidance, a 5-Japanese thoracentesis needle/catheter system was advanced into the left posterior lower pleural fluid collection. 520 ml of clear yellow colored fluid was drained. A sample was obtained and sent to the laboratory for diagnostic purposes. The catheter was removed, and a sterile dressing was applied. The patient tolerated the procedure well. A chest x-ray was ordered. There was no evidence of pneumothorax post procedure. IMPRESSION: Successful ultrasound guided thoracentesis of left pleural effusion. Surgical Findings: None Complications Complications: No
--- NOTE | 2024-08-15 09:10 | RAD_ITS ---
PROCEDURE: CHEST INSP/EXP 2 VIEW 08/15/2024 REASON FOR EXAM: POST THORACENTESIS TECHNIQUE: AP inspiration expiration views. COMPARISON: Prior study dated August 14, 2024. FINDINGS: The patient is status post left thoracentesis. There is no evidence of pneumothorax. Residual bilateral pleural-parenchymal changes. RAD/Chest Insp/Exp 2 View IMPRESSION: Status post left thoracentesis. No evidence of pneumothorax. Reading Location: [facility]
[2024-08-15] MEDS: Acetaminophen 500 MG Tablet 1000 MG NG ×2 (09:46→18:27)
[2024-08-15 10:20] LABS: Bedside Glucose 70 mg/dL (74-106)
[2024-08-15 10:33] LABS: Pathologist Comment/Body Fluid May follow
[2024-08-15 10:35] LABS: Body Fluid Mononuclear WBC # 0.021 10^3/uL; Body Fluid Mononuclear WBC % 91.3 %; Body Fluid Polynuclear WBC # 0.002 10^3/uL; Body Fluid Polynuclear WBC % 8.7 %; Body Fluid Total Cells Counted 0.024 10^3/ul; White Blood Count/Body Fluid 0.023 10^3/uL
[2024-08-15 10:37] LABS: Auto B Fluid Analyzer BKGD Ct COUNTS W/IN LIMITS (W/IN LIMITS)
[2024-08-15 10:38] LABS: Appearance/Body Fluid CLEAR; Color/Body Fluid LT YEL; Source- Body Fluid THORACENTESIS
--- NOTE | 2024-08-15 10:50 | ST.MBS ---
Modified Barium Swallow Patient Information Study Date: 08/15/24 Study Time: 12:00 Direct Billable Minutes: 101 Total Minutes procedure & reportin Diagnosis: Pleural effusion J90, Malnutrition E46 Referring Physician: Nikolas Magaña Reason for Referral: Assess swallow function, assess risk for aspiration, and determine recommendations for least restrictive diet textures and compensatory strategies to facilitate safe po intake. Medical History: Pt presented to [facility] ED 08/14/2024 (recently discharged from [facility] 08/13/24 for management of acute blood loss anemia and GI bleed) from [facility] to the ED feeling very SOB, as if she couldn't breathe. Patient is severely malnourished and has chronic bilateral lower extremity edema, paraparesis, PEG tube, and small coccygeal decubitus ulcer, stage II. Pt is on dialysis. Pt required 15L O2 via nonrebreather w/ EMS, 4L O2 in the ED. In the ED, the patient was tachycardic and tachypneic. Chest x-ray revealed 1. Pulmonary congestion and edema. Pneumonia cannot be excluded. 2. Bilateral pleural effusions. The patient has been admitted for management of pulmonary edema/anasarca. ST recommended due to concerns for swallowing difficulty. Of note, at discharge the patient was on a transitional diet. BSE 08/15/2024 recommended soft and bite size textures / thin liquids. STICKER MACHINE OPERATOR also recommended MBSS to further assess risk for aspiration. PMH: Anasarca, Chronic anemia, Leukocytosis, Severe protein-calorie malnutrition, End stage renal disease, Chylothorax determined by thoracentesis, Open abdominal wall wound, FTT, Gross hematuria, Retroperitoneal hematoma, Constipation, Raynaud's syndrome without gangrene, Hypo-osmolality and hyponatremia, HLD, Hypothyroidism, Anemia, Unsteadiness on feet, Muscle weakness, Dysphagia oropharyngeal phase, HTN, Activated protein C resistance, Unspecified severe protein-calorie malnutrition, Acute respiratory failure with hypoxia, COPD, Peripheral vascular disease, Enterocolitis due to Clostridium difficile - See EMR for full PMH. Current Diet Ordered: Soft and bite size textures / Thin liquids Dentition: Natural Teeth and Missing Teeth Mental Status: WNL Respiratory Status: Oxygenating on 2L/M nasal cannula Penetration-Aspiration Scale Penetration-Aspiration Scale: OBJECTIVE ASSESSMENT OF SWALLOW FUNCTION (QUANTITATIVE ? PER TRIAL): PENETRATION / ASPIRATION SCALE (HERNANDEZ): 1 = does not enter airway 2 = enters airway/above vocal folds/ejected 3 = enters airway/above vocal folds/not ejected 4 = enters airway/contacts vocal folds/ejected 5 = enters airway/contacts vocal folds/not ejected 6 = enters airway/below vocal folds/ejected 7 = enters airway/below vocal folds/not ejected despite effort 8 = enters airway/below vocal folds/no effort VIDEOFLOROSCOPIC SCALE SCORE (HERNANDEZ): Grade I = aspiration of material that has penetrated into the laryngeal vestibule, intact cough reflex Grade II = aspiration < 10 % of the bolus, intact cough reflex Grade III = aspiration of < 10 % of the bolus, reduced cough reflex or aspiration of > 10 % of the bolus, intact cough reflex Grade IV = aspiration of > 10 % of the bolus, reduced cough reflex Penetration-Aspiration Scale Score Thin Liquid via teaspoon: Result: 1= does not enter airway Thin Liquid via teaspoon Trial 2: Result: 1= does not enter airway Thin Liquid via large single sip: cup: Result: 1= does not enter airway [place] Thick Liquid via small single sip: cup: Result: 1= does not enter airway Pudding via teaspoon: Result: 1= does not enter airway Comment: Esophageal screen - Retention in the lower esophagus, which mostly cleared when provided liquid wash. Min retrograde flow of barium in the lower esophagus. 06/01 Cookie: Result: 1= does not enter airway Thin Liquid via single sip: straw: Result: 1= does not enter airway Oral Phase Labial Seal: Escape beyond interlabial space; no extension beyond slim border Tongue Control During Bolus Hold: Posterior escape of less than half of bolus Bolus Preparation/Mastication: Slow prolonged chewing/mashing with complete recollection Bolus Transport/Lingual Motion: Delayed initiation of tongue motion Oral Residue: Trace residue lining oral structures Pharyngeal Phase Initiation of Pharyngeal Swallow: Bolus head at posterior laryngeal surgace of epiglottis Soft Palate Elevation: Trace column of contrast/air between soft palate and pharyngeal wall Laryngeal Elevation: Comp. Superior move thyroid cart w/comp. apprx arytenoid cart-epig pet Anterior Hyoid Excursion: Partial anterior movement Epiglottic Movement: Complete inversion Laryngeal Vestibule Closure at Height of Swallow: Complete; no air/contrast in laryngeal vestibule Pharyngeal Stripping Wave: Present - complete Pharyngoesophageal Segment Opening: Parital distension and partial duration; parital obstruction of flow Tongue Base Retraction: Narrow column of contrast between tongue base & post. pharyngeal wall Pharyngeal Residue: Trace residue within or on pharyngeal structures Esophageal Phase Esophageal Clearance: Esophageal retention w/ retrograde flow through pharyngoesophageal seg (Trace retention of barium in UES w/ retrograde flow; otherwise, mild retention of barium in the lower esophagus w/ retrograde flow well below the UES.) Diagnosis/Impression Diagnosis: Oropharyngeal swallow function grossly WNL Impression: Oropharyngeal swallow function grossly WNL. Good oral and pharyngeal clearance of boluses. Good airway closure during the swallow w/ no laryngeal penetration or aspiration observed during the study. The esophageal phase is primarily marked by... -Trace retention of barium in UES w/ retrograde flow. -Mild retention of pudding barium in the lower esophagus, which cleared w/ liquid wash. Min retrograde flow of barium liquid in the lower esophagus remaining well below the UES. Recommendations Diet: Easy to Chew Textures and Thin Liquids Compensatory Strategies: Small Bites, Small Sips, Slow Rate, Alternate bites/solids and sips/liquids (1:1 ratio), Sitting upright and Remain sitting upright for 30 minutes after PO intake Recommend Repeat Modified Barium Swallow: No Need for Skilled Speech Therapy Services: Yes Comment: Follow 2-3X to ensure diet tolerance and train in reflux aspiration precautions. Education Completed: 1. Described result of evaluation. and 2. Pt understands evaluation & agrees with goals and treatment plan. Comment: No immediate GI consult recommended. Pt is already planned for routine GI follow up from recent hospital admission for ABLA. Status Active ST Patient: Active Contact Information [facility]:: Marva Car M.A. CCC-STICKER MACHINE OPERATOR? Speech-Language Pathologist?? [facility] [address] [place] [address]? [email or web address]?? [phone]
[2024-08-15 11:22] LABS: Cytology, Body Fluid / CSF SEE PATHOLOGY REPORT
[2024-08-15 11:34] LABS: Red Cell Count/Body Fluid 6 /mm3
--- NOTE | 2024-08-15 11:38 | PCM.CONS.R ---
Documented by User: OSCAR Hayward 08/15/24 11:53 Assessment & Plan Assessment/Plan (1) End stage renal disease: (2) Pleural effusion: PLAN: Plan ESRD on hemodialysis MWF. Patient underwent HD yesterday and only able to tolerate ~1.7L fluid removal, we were trying to attempt more fluid removal but limited due to low bps. Even with midodrine bps did not improve much. Patient is off antihypertensives. Patient had thoracentesis this morning with ~500ml fluid removed. I contacted patient's POA Janette ([phone]), who also had other sister Geeta (from [place]) in on phone conversation and I updated them regarding how patient has recently been doing with dialysis in hospital and at kidney center. I reviewed with both sisters patient has been having difficult time tolerating dialysis with noted lower bps, unable to tolerate fluid removal with dialysis and discussed with them risk of lower bps, unable to tolerate dialysis in hospital and outpatient setting. Both sisters stated they want to continue patient's wishes but do not want chest compressions should her heart stop. They also had questions regarding different types of dialysis modalities, at home dialysis and I reviewed with them risk for surgery for PD catheter, risk for dialysis at home, risk of daily dialysis etc. Questions were answered. Will plan for dialysis tomorrow and attempt fluid removal as patient/blood pressure tolerates. Orders placed. Further orders forthcoming as hospitalization evolves. Assess plan reviewed with Dr. Torres. HPI Consult Data Date of Consult: 08/15/24 HPI Narrative HPI Narrative: SCOTT OBREGON, is a 64 F with past medical history significant for ESRD who currently dialyzes Monday schedule at [facility] via tunneled hemodialysis catheter who presented back to the emergency room yesterday from F with complaints of worsening shortness of breath. Chest x-ray in the emergency room showing pulmonary edema, bilateral pleural effusions. Patient had dialysis yesterday, only able to tolerate about 1.7L fluid removal. Had thoracentesis with around 500ml fluid removed. Patient alert, drowsy, no complaints today. 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 Gross hematuria Retroperitoneal hematoma Constipation, unspecified Raynaud's syndrome without gangrene Hypo-osmolality and hyponatremia Hyperlipidemia, unspecified Hypothyroidism, unspecified Anemia, unspecified Need for assistance with personal care Other malaise Other abnormalities of gait and mobility Unsteadiness on feet Muscle weakness (generalized) Other symbolic dysfunctions Dysphagia, oropharyngeal phase Essential (primary) hypertension Activated protein C resistance Unspecified severe protein-calorie malnutrition Acute respiratory failure with hypoxia Emphysema, unspecified Peripheral vascular disease, unspecified Enterocolitis due to Clostridium difficile, not specified as recurrent Acute kidney failure, unspecified Leakage of aortic (bifurcation) graft (replacement), subsequent encounter Abdominal aortic aneurysm, ruptured, unspecified Home Medications ?Medication ?Instructions ?Recorded ?Last Taken ?Type aspirin 81 mg tablet,delayed 81 mg PO DAILY 03/11/24 07/23/24 History release (Adult Aspirin Regimen) Held on 08/14/24. Instructions: MD Ordered atorvastatin 20 mg tablet 20 mg PO QHS 03/11/24 07/22/24 History metoprolol tartrate 25 mg tablet 25 mg PO BID 03/11/24 07/22/24 History thiamine HCl (vitamin B1) 100 mg 100 mg PO BID 04/11/24 07/23/24 History tablet cyclobenzaprine 5 mg tablet 5 mg PO Q8H PRN MUSCLE SPASMS 06/05/24 07/10/24 History Lactobacillus rhamnosus GG 10 1 cap PO DAILY 07/18/24 07/23/24 History billion cell capsule (Culturelle) acetaminophen 325 mg tablet 650 mg PO Q4H PRN fever 07/18/24 Unknown History aluminum-magnesium hydroxide 200 30 ml PO Q4H PRN GI DISTRESS 07/18/24 Unknown History mg-200 mg/5 mL oral suspension amlodipine 5 mg tablet 5 mg PO QHS 07/18/24 07/22/24 History docusate sodium 100 mg tablet 100 mg PO BID PRN constipation 07/18/24 Unknown History dronabinol 2.5 mg capsule (Marinol) 2.5 mg PO BID 07/18/24 07/23/24 History guaifenesin 100 mg/5 mL oral liquid 200 mg PO Q4H PRN cough 07/18/24 07/14/24 History levothyroxine 200 mcg tablet 200 mcg PO DAILY 07/18/24 07/23/24 History midodrine 10 mg tablet 10 mg PO DAILY PRN for SBP lower 07/18/24 Unknown History than 110 during dialysis tx ondansetron 4 mg disintegrating 4 mg PO DAILY PRN nausea and 07/18/24 Unknown History tablet vomiting oxycodone 5 mg tablet 5 mg PO Q6H PRN pain 07/18/24 07/22/24 History polyethylene glycol 3350 17 17 g PO QODAY 07/18/24 07/21/24 History gram/dose oral powder sennosides 8.6 mg-docusate sodium 1 tab-cap PO DAILY PRN constipation 07/18/24 Unknown History 50 mg tablet (Senna Plus) sertraline 25 mg tablet 25 mg PO DAILY 07/18/24 07/23/24 History vitamin B complex-vitamin C-folic 1 tab PO DAILY 07/18/24 07/23/24 History acid 0.8 mg tablet (Renal Vitamin) bisacodyl 10 mg rectal suppository 10 mg CA DAILY PRN constipation 07/31/24 Unknown History cholecalciferol (vitamin D3) 125 125 mcg PO DAILY 07/31/24 Unknown History mcg (5,000 unit) capsule glucagon HCl 1 mg solution for 1 mg IM Q20M PRN hypoglycemia 07/31/24 Unknown History injection (Glucagon (HCl) Emergency Kit) ascorbic acid (vitamin C) 500 mg 500 mg PO DAILY #0 tabs 08/13/24 Unknown Rx tablet ferrous sulfate 325 mg (65 mg 325 mg PO QODAY #30 tabs 08/13/24 Unknown Rx iron) tablet loperamide 2 mg capsule 2 mg PO Q4H PRN DIARRHEA #0 caps 08/13/24 Unknown Rx pantoprazole 40 mg tablet,delayed 40 mg PO BID #0 tabs 08/13/24 Unknown Rx release acetaminophen 650 mg rectal 650 mg CA Q4H PRN fever or pain 08/14/24 Unknown History suppository dextrose 40 % oral gel (Glucose 10 g PO Q15M PRN hypoglycemia 08/14/24 Unknown History Gel) mirtazapine 15 mg tablet 15 mg PO QHS 08/14/24 Unknown History sodium phosphates 19 gram-7 118 ml CA DAILY PRN constipation 08/14/24 Unknown History gram/118 mL enema (Enema) Allergy/AdvReac Type Severity Reaction Status Date / Time iodine Allergy Intermediate Nausea Verified 08/14/24 07:32 shellfish derived Allergy Intermediate Nausea Verified 08/14/24 07:32 Social History Smoking Status: Former smoker Tobacco: How many years used: 40 alcohol intake: former substance use type: does not use ROS ROS Narrative as in HPI Physical Exam Narrative alert, oriented, no apparent distress S1 S2 RRR diminished breath sounds abdomen soft + edema feet and lower legs tunneled HD catheter dressing C/D/I Lab / Micro Data 08/15/24 04:47 08/14/24 16:06 Labs: Laboratory Results - last 24 hr 08/14/24 07:48: Phosphorus 3.0, Magnesium 1.4 L, Lactate Dehydrogenase 239, Total Protein 5.4 L 08/14/24 16:06: Glucose 79 08/14/24 19:01: POC Glucose 137 H 08/15/24 04:47: WBC 4.1 L, RBC 2.71 L, Hgb 7.6 L, Hct 24.6 L, MCV 90.8, MCH 28.0, MCHC 30.9 L, RDW Std Deviation 69.5 H, RDW Coeff of Monika 21.3 H, Plt Count 159, MPV 10.8, Immature Gran % (Auto) 2.400 H, Neut % (Auto) 76.6 H, Lymph % (Auto) 10.9 L, [place] % (Auto) 7.0, Eos % (Auto) 2.4, Baso % (Auto) 0.7, Absolute Neuts (auto) 3.2, Absolute Lymphs (auto) 0.45 L, Nucleated RBC % 0, Anisocytosis 1+, [place] [address] H, Triglycerides 71, Cholesterol 62, LDL Cholesterol, Calc 23, VLDL Cholesterol 14, HDL Cholesterol 25 L, Cholesterol/HDL Ratio 2.48, TSH 10.600 H 08/15/24 05:51: POC Glucose 104 08/15/24 09:20: Fluid Source THORACENTESIS, Fluid Color LT YEL, Fluid Appearance CLEAR, Fluid WBC 0.023, Fluid RBC 6, Fluid Tot Cell Count 0.024 H, Fld Polynuclear WBCs # 0.002, Fld Polynuclear WBCs % 8.7, Fluid Mononuclear WBCs 0.021, Fld Mononuclear WBCs % 91.3, Fl Pathologist Comment May follow, Fluid Comment 2 SEE COMMENT 08/15/24 10:01: POC Glucose 70 L Micro: Microbiology 08/14/24 07:35 Mucosa - Nose SARS-CoV-2, Influenza & RSV (PCR) - Final Imaging Radiology Impression Chest X-Ray 08/15/24 09:10 IMPRESSION: Status post left thoracentesis. No evidence of pneumothorax. Reading Location: [facility] Documented by User: Dr. Angie Torres MD 08/15/24 21:35 Assessment & Plan Assessment/Plan (1) End stage renal disease: (2) Pleural effusion: PLAN: Plan ESRD on hemodialysis MW. Patient underwent HD yesterday and only able to tolerate ~1.7L fluid removal, we were trying to attempt more fluid removal but limited due to low bps. Even with midodrine bps did not improve much. Patient is off antihypertensives. Patient had thoracentesis this morning with ~500ml fluid removed. I contacted patient's WILMAR Savage ([phone]), who also had other sister Geeta (from [place]) in on phone conversation and I updated them regarding how patient has recently been doing with dialysis in hospital and at kidney center. I reviewed with both sisters patient has been having difficult time tolerating dialysis with noted lower bps, unable to tolerate fluid removal with dialysis and discussed with them risk of lower bps, unable to tolerate dialysis in hospital and outpatient setting. Both sisters stated they want to continue patient's wishes but do not want chest compressions should her heart stop. They also had questions regarding different types of dialysis modalities, at home dialysis and I reviewed with them risk for surgery for PD catheter, risk for dialysis at home, risk of daily dialysis etc. Questions were answered. Will plan for dialysis tomorrow and attempt fluid removal as patient/blood pressure tolerates. Orders placed. Further orders forthcoming as hospitalization evolves. Assess plan reviewed with Dr. Torres. Addendum agree with above. 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 Gross hematuria Retroperitoneal hematoma Constipation, unspecified Raynaud's syndrome without gangrene Hypo-osmolality and hyponatremia Hyperlipidemia, unspecified Hypothyroidism, unspecified Anemia, unspecified Need for assistance with personal care Other malaise Other abnormalities of gait and mobility Unsteadiness on feet Muscle weakness (generalized) Other symbolic dysfunctions Dysphagia, oropharyngeal phase Essential (primary) hypertension Activated protein C resistance Unspecified severe protein-calorie malnutrition Acute respiratory failure with hypoxia Emphysema, unspecified Peripheral vascular disease, unspecified Enterocolitis due to Clostridium difficile, not specified as recurrent Acute kidney failure, unspecified Leakage of aortic (bifurcation) graft (replacement), subsequent encounter Abdominal aortic aneurysm, ruptured, unspecified Home Medications ?Medication ?Instructions ?Recorded ?Last Taken ?Type aspirin 81 mg tablet,delayed 81 mg PO DAILY 03/11/24 07/23/24 History release (Adult Aspirin Regimen) Held on 08/14/24. Instructions: MD Ordered atorvastatin 20 mg tablet 20 mg PO QHS 03/11/24 07/22/24 History metoprolol tartrate 25 mg tablet 25 mg PO BID 03/11/24 07/22/24 History thiamine HCl (vitamin B1) 100 mg 100 mg PO BID 04/11/24 07/23/24 History tablet cyclobenzaprine 5 mg tablet 5 mg PO Q8H PRN MUSCLE SPASMS 06/05/24 07/10/24 History Lactobacillus rhamnosus GG 10 1 cap PO DAILY 07/18/24 07/23/24 History billion cell capsule (Culturelle) acetaminophen 325 mg tablet 650 mg PO Q4H PRN fever 07/18/24 Unknown History aluminum-magnesium hydroxide 200 30 ml PO Q4H PRN GI DISTRESS 07/18/24 Unknown History mg-200 mg/5 mL oral suspension amlodipine 5 mg tablet 5 mg PO QHS 07/18/24 07/22/24 History docusate sodium 100 mg tablet 100 mg PO BID PRN constipation 07/18/24 Unknown History dronabinol 2.5 mg capsule (Marinol) 2.5 mg PO BID 07/18/24 07/23/24 History guaifenesin 100 mg/5 mL oral liquid 200 mg PO Q4H PRN cough 07/18/24 07/14/24 History levothyroxine 200 mcg tablet 200 mcg PO DAILY 07/18/24 07/23/24 History midodrine 10 mg tablet 10 mg PO DAILY PRN for SBP lower 07/18/24 Unknown History than 110 during dialysis tx ondansetron 4 mg disintegrating 4 mg PO DAILY PRN nausea and 07/18/24 Unknown History tablet vomiting oxycodone 5 mg tablet 5 mg PO Q6H PRN pain 07/18/24 07/22/24 History polyethylene glycol 3350 17 17 g PO QODAY 07/18/24 07/21/24 History gram/dose oral powder sennosides 8.6 mg-docusate sodium 1 tab-cap PO DAILY PRN constipation 07/18/24 Unknown History 50 mg tablet (Senna Plus) sertraline 25 mg tablet 25 mg PO DAILY 07/18/24 07/23/24 History vitamin B complex-vitamin C-folic 1 tab PO DAILY 07/18/24 07/23/24 History acid 0.8 mg tablet (Renal Vitamin) bisacodyl 10 mg rectal suppository 10 mg CA DAILY PRN constipation 07/31/24 Unknown History cholecalciferol (vitamin D3) 125 125 mcg PO DAILY 07/31/24 Unknown History mcg (5,000 unit) capsule glucagon HCl 1 mg solution for 1 mg IM Q20M PRN hypoglycemia 07/31/24 Unknown History injection (Glucagon (HCl) Emergency Kit) ascorbic acid (vitamin C) 500 mg 500 mg PO DAILY #0 tabs 08/13/24 Unknown Rx tablet ferrous sulfate 325 mg (65 mg 325 mg PO QODAY #30 tabs 08/13/24 Unknown Rx iron) tablet loperamide 2 mg capsule 2 mg PO Q4H PRN DIARRHEA #0 caps 08/13/24 Unknown Rx pantoprazole 40 mg tablet,delayed 40 mg PO BID #0 tabs 08/13/24 Unknown Rx release acetaminophen 650 mg rectal 650 mg CA Q4H PRN fever or pain 08/14/24 Unknown History suppository dextrose 40 % oral gel (Glucose 10 g PO Q15M PRN hypoglycemia 08/14/24 Unknown History Gel) mirtazapine 15 mg tablet 15 mg PO QHS 08/14/24 Unknown History sodium phosphates 19 gram-7 118 ml CA DAILY PRN constipation 08/14/24 Unknown History gram/118 mL enema (Enema) Allergy/AdvReac Type Severity Reaction Status Date / Time iodine Allergy Intermediate Nausea Verified 08/14/24 07:32 shellfish derived Allergy Intermediate Nausea Verified 08/14/24 07:32 Social History Smoking Status: Former smoker Tobacco: How many years used: 40 alcohol intake: former substance use type: does not use Lab / Micro Data 08/15/24 04:47 08/14/24 16:06
[2024-08-15 12:08] LABS: Glucose, Body Fluid 111 mg/dL (Not Establ.); LDH,Body Fluid 51 Units/L (Not Establ.); Protein, Body Fluid 1.9 g/dL (Not Establ.)
[2024-08-15 12:24] LABS: Lymphocytes 32 %; Mesothelial Cells 4 %; Monocytes 60 %; Neutrophil (Segs) 4 %
[2024-08-15 12:25] LABS: Body Fluid QC Type(s) BF1Q
--- NOTE | 2024-08-15 12:56 | WOUNDNOTE ---
wound photo: left great toe
--- NOTE | 2024-08-15 12:57 | WOUNDNOTE ---
wound photo: right great toe
--- NOTE | 2024-08-15 12:57 | WOUNDNOTE ---
wound photo: left lower abdomen
--- NOTE | 2024-08-15 13:52 | WOUNDNOTE ---
Low air loss mattress ordered for prevention.
[2024-08-15 16:03] LABS: Bedside Glucose 90 mg/dL (74-106)
[2024-08-15 17:19] LABS: Bedside Glucose 92 mg/dL (74-106)
[2024-08-15] MEDS: Jevity 1.5 1,000 ML 50 ML GT (19:30)
[2024-08-15 23:58] LABS: Bedside Glucose 82 mg/dL (74-106)
[2024-08-16] VITALS (16 sets, daily range): BP systolic 119–186; BP diastolic 64–88; PULSE 64–96; RESP 14–20; TEMP 36.1–36.8; O2SAT 95–100; BMI 15.7; BMI 14.8
[2024-08-16] MEDS: Acetaminophen 500 MG Tablet 1000 MG NG ×2 (02:01→14:42)
[2024-08-16 06:01] LABS: Absolute Lymphocyte Count 0.52 X10^3/uL (0.83-4.51); Absolute Neutrophil Count 2.9 X10^3/uL (2.0-7.7); Basophil# 0.04 X10^3/uL; Eosinophil# 0.15 X10^3/uL; Eosinophils% 3.7 % (0-5); Hematocrit 30.5 % (37-47); Hemoglobin 9.1 g/dL (12.0-15.0); Lymphocyte # 0.52 X10^3/ul (0.83-4.51); Lymphocyte % 12.7 % (19-41); Mean Corp Hgb Conc 29.8 g/dL (32-36); Mean Corpuscular Hgb 27.7 pg (27.0-32.0); Mean Platelet Vol. 9.8 fl (6.2-12.0); Monocyte# 0.43 X10^3/uL; Monocyte% 10.5 % (0-10); NRBC Flagged by Analyzer 0 % (0-5); Neutrophil # 2.87 X10^3/uL (2.7-7.7); Neutrophil % 69.9 % (47-70); POSITIVE DIFFERENTIAL YES; POSITIVE MORPHOLOGY YES; Platelet Count 179 K/mm3 (150-450); RBC Distribution Width CV 22.5 % (11.6-14.6); RBC Distribution Width SD 74.4 fl (35.1-43.9); Red Blood Count 3.28 M/mm3 (4.2-5.4); White Blood Count 4.1 K/mm3 (4.4-11.0)
[2024-08-16 06:11] LABS: Differential Indicated SCAN CRITERIA MET
[2024-08-16 06:19] LABS: Bedside Glucose 80 mg/dL (74-106)
[2024-08-16 06:31] LABS: Anion Gap 10 (5-15); BUN 33 mg/dL (4-19); BUN/Creat Ratio 25.9 RATIO (10-20); Carbon Dioxide 20.8 mmol/L (21.0-32.0); Chloride 102 mmol/L (98-108); Creatinine, Serum 1.27 mg/dL (0.70-1.20); EST Glomerular Filtration Rate 48 (>60); Estimated Creatinine Clearance 38.36 ml/min (50-250); Glucose 89 mg/dL (70-99); Sodium Level 132 mmol/L (133-145)
[2024-08-16 08:32] LABS: Platelet Estimate A (ADEQ); Polychromasia 1+
[2024-08-16 08:33] LABS: Anisocytosis 1+
[2024-08-16 08:53] LABS: Bedside Glucose 57 mg/dL (74-106)
--- NOTE | 2024-08-16 09:43 | CASEMGMT ---
Discharge Planning Updates sent to [facility] with note asking if company had their own palliative services. Joellen Billy DC Planning Asst.
[2024-08-16 10:07] LABS: Bedside Glucose 24 mg/dL (74-106)
--- NOTE | 2024-08-16 10:55 | CASEMGMT ---
CC aware that pt may be return over the weekend. Green sheet and transport form placed on chart. Joellen Billy DC Planning Asst.
[2024-08-16] MEDS: Heparin 10,000 UNITS/10 ML Vial 1600 UNITS IV (11:01)
[2024-08-16] MEDS: 0.9% Normal Saline 1,000 ML IV.SOLN. 1000 ML OPERA.SITE (11:02)
[2024-08-16] MEDS: PureFlow B 2K Dialysis Soln 1 BAG 6 BAG PF (11:02)
--- NOTE | 2024-08-16 11:05 | PCM.PN.REN ---
Subjective Subjective Patient seen and examined during dialysis session today. Tolerating some fluid removal with dialysis today. No overnight events. Objective Data Objective Data Vital Signs: Vital Signs Temp Pulse Resp BP Pulse Ox O2 Del Method O2 Flow Rate 97.9 F 83 14 159/80 H 100 Room Air 2 08/16/24 08:00 08/16/24 10:30 08/16/24 10:30 08/16/24 10:30 08/16/24 10:30 08/16/24 10:30 08/15/24 16:00 Oxygen Flow Rate (L/min) 2 Oxygen Delivery Method Room Air Weight: 52.9 kg Body Mass Index (BMI) 15.7 Intake & Output: Intake and Output for Last 24 Hours 08/14/24 08/15/24 08/16/24 23:59 23:59 23:59 Intake Total 1305 / 1305 1680 / 2180 620 / 620 Output Total 4168 / 4168 2649 / 4948 2999 / 2999 Balance -2863 / -2863 -969 / -2768 -2379 / -2379 Lab / Micro Data 08/16/24 05:40 08/16/24 05:40 Labs: Laboratory Results - last 24 hr 08/15/24 09:02: Fluid Glucose 111, Fluid Total Protein 1.9, Fluid LDH 51 08/15/24 09:20: Fluid RBC 6, Fluid Neutrophils 4, Fluid Lymphocytes 32, Fluid Monocytes 60, Fld Mesothelial Cells 4 08/15/24 15:45: POC Glucose 90 08/15/24 17:00: POC Glucose 92 08/15/24 23:40: POC Glucose 82 08/16/24 05:40: WBC 4.1 L, RBC 3.28 L, Hgb 9.1 L, Hct 30.5 L, MCV 93.0, MCH 27.7, MCHC 29.8 L, RDW Std Deviation 74.4 H, RDW Coeff of Monika 22.5 H, Plt Count 179, MPV 9.8, Immature Gran % (Auto) 2.200 H, Neut % (Auto) 69.9, Lymph % (Auto) 12.7 L, [place] % (Auto) 10.5 H, Eos % (Auto) 3.7, Baso % (Auto) 1.0, Absolute Neuts (auto) 2.9, Absolute Lymphs (auto) 0.52 L, Nucleated RBC % 0, Platelet Estimate A, Polychromasia 1+, Anisocytosis 1+, Sodium 132 L, Potassium 5.0, Chloride 102, Carbon Dioxide 20.8 L, Anion Gap 10, BUN 33 H, Creatinine 1.27 H, Estim Creat Clear Calc 38.36 L, Est GFR (MDRD) Non-Af 48 L, BUN/Creatinine Ratio 25.9 H, Glucose 89, Calcium 8.0 08/16/24 06:00: POC Glucose 80 08/16/24 08:26: POC Glucose 57 L 08/16/24 09:41: POC Glucose 24 L* Micro: Microbiology 08/14/24 08:50 Blood Culture (Wb) - Anticubital Left Blood Culture - Preliminary No growth in 48 hours. 08/14/24 07:48 Blood Culture (Wb) - Anticubital Left Blood Culture - Preliminary No growth in 48 hours. 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 Normal LV size. No regional wall motion abnormalities noted. The left atrium is moderately enlarged. The global longitudinal strain is moderately abnormal. The global longitudinal strain = -11.8% (abnormal). Ordering Physician: Nikolas Magaña Referring Physician: Millie Massey Performed By: Janessa Dominique, RDCS, RVT Physical Exam Narrative alert, oriented, no apparent distress S1 S2 RRR diminished breath sounds abdomen soft + edema feet and lower legs tunneled HD catheter dressing C/D/I, accessed for dialysis Assessment & Plan Assessment/Plan (1) End stage renal disease: (2) Pleural effusion: PLAN: Plan - ESRD on hemodialysis MWF. Patient undergoing hemodialysis today on 2K bath and attempting around 2 to 3 L fluid removal as blood pressure tolerates. Serum creatinine underestimated as patient has severe low body mass/cachexia, patient is essentially anuric. EDW will be lowered by time of hospital discharge. -History of hypertension; blood pressures are better today. -Anemia of chronic disease; patient receives DENISE and iron at dialysis. Hemoglobin 9.1. Continue to follow hemoglobin trends. - Nephrololgy plan reviewed with Dr. Magaña. Assessment and plan reviewed with Dr. Irizarry
--- NOTE | 2024-08-16 11:20 | CASEMGMT ---
SW went to patient's room to provide her with information on Palliative vs Hospice care. Patient said her sister will have to read it as she does not have her glasses. Patient asked SW to explain the difference. SW explained Palliative is for patient's who have chronic conditions that have symptoms that need managed. Patient would be able to continue curative treatments and see own physicians. Palliative would be an additional provider to help manage their care. Hospice is for patient's who are approaching the end of their life. The idea is to keep the patient comfortable for the remainder of their life without seeking life saving care. SW explained to patient that when we have these conversations we often ask the patient to think about what they consider quality of life. SW asked patient if the physician were to tell her today she would be bedbound the rest of her life, receive dialysis the rest of her life, and be in and our of the hospital would she be okay with that. Patient told SW that she wants to be by family. Patient said maybe if she could be set up in an area of her home and a nurse could come in that would be good. SW told patient she would have to private pay for a nurse as insurance would only cover a nurse once a week maybe. Patient asked about the cost of a nurse and SW told her SW would have to get that information for her. Patient said she wants to live and is not ready to give up yet. SW told patient physician will be back around 2 when her sister arrives. Nori YOUSIF
[2024-08-16 11:51] LABS: Glucose 109 mg/dL (70-99)
--- NOTE | 2024-08-16 15:15 | CASEMGMT ---
This SW, RN CM, RN, and physician spoke with patient, her sister Janette, and her other sister Laisha. Goals of care were discussed. Patient and her sisters made it very clear they want patient to be a DNRCC-A with intubation. They were not interested in palliative care or Hospice. Nori Valentine GUITAR REPAIR TECHNICIAN BENJA
--- NOTE | 2024-08-16 15:22 | PCM.PN.HOSP ---
Reason for Visit Reason for Visit: Diagnoses Chronic pulmonary edema (08/14/24) Pleural effusion, not elsewhere classified (08/14/24) End stage renal disease (08/14/24) Generalized edema (08/14/24) Objective Data Objective Data Vital Signs: Vital Signs Temp Pulse Resp BP Pulse Ox O2 Del Method O2 Flow Rate 97.8 F 64 18 164/80 H 100 Room Air 2 08/16/24 12:35 08/16/24 12:35 08/16/24 12:35 08/16/24 12:35 08/16/24 12:35 08/16/24 15:07 08/16/24 12:00 Oxygen Flow Rate (L/min) 2 Oxygen Delivery Method Room Air Weight: 109 lb 2.061 oz Body Mass Index (BMI) 14.8 Intake & Output: Intake and Output for Last 24 Hours 08/14/24 08/15/24 08/16/24 23:59 23:59 23:59 Intake Total 1305 / 1305 1680 / 2180 680 / 680 Output Total 4168 / 4168 2649 / 4948 6359 / 6359 Balance -2863 / -2863 -969 / -2768 -5679 / -5679 Lab / Micro Data 08/16/24 05:40 08/16/24 11:22 Labs: Laboratory Results - last 24 hr 08/15/24 15:45: POC Glucose 90 08/15/24 17:00: POC Glucose 92 08/15/24 23:40: POC Glucose 82 08/16/24 05:40: WBC 4.1 L, RBC 3.28 L, Hgb 9.1 L, Hct 30.5 L, MCV 93.0, MCH 27.7, MCHC 29.8 L, RDW Std Deviation 74.4 H, RDW Coeff of Monika 22.5 H, Plt Count 179, MPV 9.8, Immature Gran % (Auto) 2.200 H, Neut % (Auto) 69.9, Lymph % (Auto) 12.7 L, [place] % (Auto) 10.5 H, Eos % (Auto) 3.7, Baso % (Auto) 1.0, Absolute Neuts (auto) 2.9, Absolute Lymphs (auto) 0.52 L, Nucleated RBC % 0, Platelet Estimate A, Polychromasia 1+, Anisocytosis 1+, Sodium 132 L, Potassium 5.0, Chloride 102, Carbon Dioxide 20.8 L, Anion Gap 10, BUN 33 H, Creatinine 1.27 H, Estim Creat Clear Calc 38.36 L, Est GFR (MDRD) Non-Af 48 L, BUN/Creatinine Ratio 25.9 H, Glucose 89, Calcium 8.0 08/16/24 06:00: POC Glucose 80 08/16/24 08:26: POC Glucose 57 L 08/16/24 09:41: POC Glucose 24 L* 08/16/24 11:22: Glucose 109 H Micro: Microbiology 08/14/24 08:50 Blood Culture (Wb) - Anticubital Left Blood Culture - Preliminary No growth in 48 hours. 08/14/24 07:48 Blood Culture (Wb) - Anticubital Left Blood Culture - Preliminary No growth in 48 hours. 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 Had detailed discussion with patient's POA Mrs. Monk in person in the room and Ms. ESPINOSA on the phone inclusions of social work case manager, social media developer and patient's nurse. Patient not short of breath but feels mild abdominal cramps on tube feed Physical exam General: Alert, Oriented x3, Cooperative, BMI 16.7 kg/m? HEENT: Atraumatic, PERRLA, EOMI, Normocephalic Oral: No Gingival or Mucosal Lesions/ Ulcerations Neck: Supple, No JVD, Negative Carotid Bruits Chest wall/Lungs: Air entry diminished in bilateral lung bases. No crepitation/rhonchi Cardiovascular: Regular rate, Regular Rhythm, Normal S1, Normal S2, No M/G/R Abdomen: PEG tube. Dressing on the left upper quadrant abdominal wall ulcer, healing with granulation tissue. Bowel Sounds Present, soft, nontender : No dysuria. No renal angle tenderness. No suprapubic tenderness. Extremities: Bilateral pitting edema from thigh downward, stage II decubitus coccygeal ulcer present since last admission Musculoskeletal: No Tenderness to Palpation of Joints or Extremities, chronic severe muscle atrophy. ROM restricted Neurological: Cranial nerves II-XII grossly intact, DTR 2+/4. Muscle power 3/5 at major joints Psych/Mental Status: Flat affect, amnesia/MCI Assessment & Plan Assessment/Plan (1) Pulmonary edema: (2) Anasarca: PLAN: Plan This is a 64-year-old female being admitted for shortness of breath, tachypnea and dyspnea, bilateral lower extremity edema and chest x-ray finding of small to moderate bilateral effusion and pleural treatment 1. Pulmonary edema/anasarca due to ESRD on hemodialysis and possible heart failure: Patient is being admitted in PCU. 2D echo is ordered. Heart failure core measures including intake and output, fluid restriction less than 1500 mL, daily weight monitoring, light Naif wrap bandage, kidney and electrolytes monitoring. Lasix 40 mg IV 1 dose ordered. 08/15: Patient shortness of breath got much better after dialysis yesterday. Currently on 2 L of oxygen 08/16: Shortness of breath is better. Patient currently on room air 2. Bilateral pleural effusion, small to moderate: This was present on the previous CT chest does not seem increased. Chest ultrasound with diagnostic thoracocentesis and fluid analysis labs ordered to confirm whether enough fluid for thoracocentesis but from chest x-ray discussed with Dr. Fox Contreras and seems small pleural effusion 08/16: Pleural fluid culture shows no organisms. Blood culture negative for more than 48 hours. Patient had 520 mL fluid aspirated on 08/15. It is transudative in nature 3. Recent PEG tube bumper ruptured with complex abdominal fluid collection in the abdominal cavity and the abnormal CT abdomen during last admission: Patient had 8 days of IV Zosyn during last admission. EGD on 08/03/2024 reviewed Impressions : - Normal esophagus. - Dislodged gastrostomy tube present characterized by ulceration. Treated with argon plasma coagulation (APC). - A non-bleeding large defect due to buried peg tube bumper was found in the stomach. Clips were placed. - No gross lesions in the duodenal bulb. Continue tube feed feeding. 4. Severe anemia that required blood transfusion during last admission from CKD/ruptured PEG tube: Her hemoglobin was 6.6 on 08/12 increased to 8.7. MCV normal. Platelet count 100 47K. Monitor hemoglobin. Anticoagulants contraindicated. She required PRBC transfusion during last admission 08/15: H&H is 7.3/24.6%. Monitor CBC. 08/16 H&H 9.1/30.5%. Platelet 179K. 5 severe protein-calorie malnutrition: Her BMI was 12.6 kg/m?. Increased to 16.7 kg/m?. Continue nutrition consult and follow-up. On tube feed Jevity 1.5, 50 cc/h. 08/16: Patient having bowel cramps/abdominal cramps probably due to tube feed. Advised to hold tube feeds for now. Bentyl as needed ordered for abdominal cramps 6. Chronic Open abdominal wall wound: Chronic since February 2024. Had wound VAC at that time. Continue follow-up with the wound care. Healing good. End stage renal disease: Secondary to ATN from hemorrhagic shock and never had recovery. Patient on dialysis every Monday. Costing Manager consulted 08/15: She feels much better after dialysis. 08/16: GPC possible Enterococcus 11,000?25. 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 No antibiotic indicated. UTI ruled out. 7. Factor V Leiden deficiency hold off on her aspirin for now. 8. Hypertension: BP usually normal 131-136 and drops 95/70 mmHg during hemodialysis on Lasix. Hold antihypertensive medication. 9. Hypothyroidism: Continue levothyroxine 10. History of C. difficile: During previous admission, C. difficile antigen was positive but toxin is negative. Does not have active symptoms abdominal pain or cramps or diarrhea. No treatment indicated 11. Depression: Continue sertraline. 12. 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 Present since last admission VTE prophylaxis with SCDs for now Living will/advanced directive/end of life care: Patient does not have living will or advanced directive but has legal power of employee benefits attorney for health.. After discussion of benefits/risks procedures involved with full code, DNR CC arrest and DNR CC, the patient opted for DNR CC arrest with no intubation. I explained the risk and benefit of CPR or intubation, DC shock, central line. 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 08/14/24 07:35 Mucosa - Nose SARS-CoV-2, Influenza & RSV (PCR) - Final Laboratory Results 08/14/24 19:01: POC Glucose 137 H 08/15/24 04:47: WBC 4.1 L, RBC 2.71 L, Hgb 7.6 L, Hct 24.6 L, MCV 90.8, MCH 28.0, MCHC 30.9 L, RDW Std Deviation 69.5 H, RDW Coeff of Monika 21.3 H, Plt Count 159, MPV 10.8, Immature Gran % (Auto) 2.400 H, Neut % (Auto) 76.6 H, Lymph % (Auto) 10.9 L, [place] % (Auto) 7.0, Eos % (Auto) 2.4, Baso % (Auto) 0.7, Absolute Neuts (auto) 3.2, Absolute Lymphs (auto) 0.45 L, Nucleated RBC % 0, Anisocytosis 1+, [place] [address] H, Triglycerides 71, Cholesterol 62, LDL Cholesterol, Calc 23, VLDL Cholesterol 14, HDL Cholesterol 25 L, Cholesterol/HDL Ratio 2.48, TSH 10.600 H 08/15/24 05:51: POC Glucose 104 08/15/24 09:02: Fluid pH Pending, Fluid Glucose 111, Fluid Total Protein 1.9, Fluid LDH 51, Fluid Amylase Pending 08/15/24 09:20: Fluid Source THORACENTESIS, Fluid Color LT YEL, Fluid Appearance CLEAR, Fluid WBC 0.023, Fluid RBC 6, Fluid Tot Cell Count 0.024 H, Fld Polynuclear WBCs # 0.002, Fld Polynuclear WBCs % 8.7, Fluid Mononuclear WBCs 0.021, Fld Mononuclear WBCs % 91.3, Fluid Neutrophils 4, Fluid Lymphocytes 32, Fluid Monocytes 60, Fld Mesothelial Cells 4, Fl Pathologist Comment May follow, Fluid Comment 2 SEE COMMENT 08/15/24 09:25: Miscellaneous Cytology Pending 08/15/24 10:01: POC Glucose 70 L 08/15/24 15:45: POC Glucose 90 Charges/Coding Addendum Addendum: After detailed discussion family with both sisters Janette and Laisha along with social work case manager and social media developer and patient's nurse for more than 20 minutes it was agreed that patient is DNR CCA with intubation. It was explained clearly there is high chance of recurrent admission and they agreed that they will come monitor for it takes and they are ready to take on the ride. Total time of the visit including total time spent in counseling or coordination of care, (more than 50% of the total time, spent in obtaining medical information from nurses and other ancillary care providers ,explaining to the patient about labs, imaging, diagnosis and management of active complex medical conditions), discussion with the solution architect, review of labs and imaging is 45 minutes. Visit Charges Inpatient E&M: [id number] [facility] Hosp L3
[2024-08-16] MEDS: Dronabinol 2.5 MG Capsule PO (16:38)
[2024-08-16] MEDS: Dicyclomine 10 MG Capsule GT (16:38)
[2024-08-16] MEDS: Jevity 1.5 1,000 ML 50 ML GT (21:25)
[2024-08-16] MEDS: Metoprolol Tartrate 25 MG Tablet GT (21:34)
[2024-08-16] MEDS: Thiamine Hydrochloride 100 MG Tablet GT (21:34)
[2024-08-16] MEDS: Atorvastatin Calcium 20 MG Tablet GT (21:34)
[2024-08-16] MEDS: Mirtazapine 15 MG Tablet 7.5 MG GT (21:40)
[2024-08-16] MEDS: 0.9% Saline Lock 10 ML Syringe IV (21:41)
[2024-08-16 21:44] LABS: Glucose 91 mg/dL (70-99)
[2024-08-17] VITALS: BP 162/84; PULSE 88; RESP 20; TEMP 36.8; O2SAT 96
[2024-08-17 01:01] LABS: Glucose 73 mg/dL (70-99)
[2024-08-17 02:59] VITALS: BP 152/76; PULSE 91; RESP 18; TEMP 36.7; O2SAT 95
[2024-08-17 05:07] VITALS: BMI 14.6
[2024-08-17] MEDS: Levothyroxine 100 MCG Tablet 200 MCG GT (05:55)
[2024-08-17 06:45] LABS: Absolute Lymphocyte Count 0.59 X10^3/uL (0.83-4.51); Absolute Neutrophil Count 3.2 X10^3/uL (2.0-7.7); Basophil# 0.04 X10^3/uL; Basophil% 0.9 % (0-1); Eosinophil# 0.15 X10^3/uL; Eosinophils% 3.4 % (0-5); Hematocrit 34.6 % (37-47); Hemoglobin 10.5 g/dL (12.0-15.0); Lymphocyte # 0.59 X10^3/ul (0.83-4.51); Lymphocyte % 13.4 % (19-41); Mean Corp Hgb Conc 30.3 g/dL (32-36); Mean Corpuscular Hgb 28.4 pg (27.0-32.0); Mean Corpuscular Volume 93.5 fL (81-99); Mean Platelet Vol. 9.2 fl (6.2-12.0); Monocyte# 0.31 X10^3/uL; NRBC Flagged by Analyzer 0 % (0-5); Neutrophil # 3.23 X10^3/uL (2.7-7.7); Neutrophil % 73.5 % (47-70); POSITIVE DIFFERENTIAL YES; POSITIVE MORPHOLOGY YES; Platelet Count 146 K/mm3 (150-450); RBC Distribution Width CV 23.1 % (11.6-14.6); RBC Distribution Width SD 74.1 fl (35.1-43.9); White Blood Count 4.4 K/mm3 (4.4-11.0)
[2024-08-17 06:48] LABS: Differential Indicated SCAN CRITERIA MET
[2024-08-17 07:47] LABS: Anion Gap 12 (5-15); BUN 22 mg/dL (4-19); BUN/Creat Ratio 20.8 RATIO (10-20); Calcium,Total 8.2 mg/dL (7.6-11.0); Carbon Dioxide 19.8 mmol/L (21.0-32.0); Chloride 101 mmol/L (98-108); Creatinine, Serum 1.07 mg/dL (0.70-1.20); EST Glomerular Filtration Rate 59 (>60); Estimated Creatinine Clearance 42.17 ml/min (50-250); Glucose 83 mg/dL (70-99); Potassium 4.7 mmol/L (3.3-5.1); Sodium Level 133 mmol/L (133-145)
[2024-08-17 08:20] VITALS: O2SAT 96
[2024-08-17 08:47] LABS: Anisocytosis 1+; Polychromasia 2+
[2024-08-17 08:48] LABS: Ovalocyte 1+
[2024-08-17 09:00] VITALS: BP 162/96; PULSE 107; RESP 18; TEMP 36.6; O2SAT 97
--- NOTE | 2024-08-17 09:16 | TREXTCAR_ITS ---
Diet Diet Order/Speech Therapy: 08/15/24 13:13 Diet: Renal - General Food consistency:: Easy to Chew Liquid Consistency:: Regular/Thin Diet Comments: Alternate bites/sips, sit as upright as tolerated during and 30min after po Routine Orders/Code Status Suppository Type: Dulcolax 10mg Suppository Frequency: Daily PRN DC O2, CPAP, BIPAP needs Home O2 Discharge instructions: Yes Type of respiratory needs?: Oxygen Oxygen frequency: Continuous Continuous oxygen liters per minute: 2 Wound(s) LLQ: Wound Type: nonhealing wound Dressing Change: AntiMicrobial (Aquacel AG, etc) coccyx: Wound Type: Abrasion Dressing Change: foam dressing left great toe: Wound Type: dry eschar right great toe: Wound Type: dry eschar Therapies Extremity Affected:: Bilateral Lower Physical Therapy: Eval and Treat Occupational Therapy: Eval and Treat Speech Therapy: Eval and Treat Problem/Diagnosis (1) Pulmonary edema: Status: Acute Code(s): J81.1 - Chronic pulmonary edema (2) Anasarca: Status: Acute Code(s): R60.1 - Generalized edema Plan This is a 64-year-old female being admitted for shortness of breath, tachypnea and dyspnea, bilateral lower extremity edema and chest x-ray finding of small to moderate bilateral effusion and pleural treatment 1. Pulmonary edema/anasarca due to ESRD on hemodialysis and possible heart failure: Patient is being admitted in PCU. 2D echo is ordered. Heart failure core measures including intake and output, fluid restriction less than 1500 mL, daily weight monitoring, light Naif wrap bandage, kidney and electrolytes mo nitoring. Lasix 40 mg IV 1 dose ordered. 08/15: Patient shortness of breath got much better after dialysis yesterday. Currently on 2 L of oxygen 08/16: Shortness of breath is better. Patient currently on room air 2. Bilateral pleural effusion, small to moderate: This was present on the previous CT chest does not seem increased. Chest ultrasound with diagnostic thoracocentesis and fluid analysis labs ordered to confirm whether enough fluid for thoracocentesis but from chest x-ray discussed with Dr. Fox Contreras and seems small pleural effusion 08/16: Pleural fluid culture shows no organisms. Blood culture negative for more than 48 hours. Patient had 520 mL fluid aspirated on 08/15. It is transudative in nature 3. Recent PEG tube bumper ruptured with complex abdominal fluid collection in the abdominal cavity and the abnormal CT abdomen during last admission: Patient had 8 days of IV Zosyn during last admission. EGD on 08/03/2024 reviewed Impressions : - Normal esophagus. - Dislodged gastrostomy tube present characterized by ulceration. Treated with argon plasma coagulation (APC). - A non-bleeding large defect due to buried peg tube bumper was found in the stomach. Clips were placed. - No gross lesions in the duodenal bulb. Continue tube feed feeding. 4. Severe anemia that required blood transfusion during last admission from CKD/ruptured PEG tube: Her hemoglobin was 6.6 on 08/12 increased to 8.7. MCV normal. Platelet count 100 47K. Monitor hemoglobin. Anticoagulants contraindicated. She required PRBC transfusion during last admission 08/15: H&H is 7.3/24.6%. Monitor CBC. 08/16 H&H 9.1/30.5%. Platelet 179K. 5 severe protein-calorie malnutrition: Her BMI was 12.6 kg/m?. Increased to 16.7 kg/m?. Continue nutrition consult and follow-up. On tube feed Jevity 1.5, 50 cc/h. 08/16: Patient having bowel cramps/abdominal cramps probably due to tube feed. Advised to hold tube feeds for now. Bentyl as needed ordered for abdominal cramps 6. Chronic Open abdominal wall wound: Chronic since February 2024. Had wound VAC at that time. Continue follow-up with the wound care. Healing good. End stage renal disease: Secondary to ATN from hemorrhagic shock and never had recovery. Patient on dialysis every Monday. Poultry Farm Supervisor consulted 08/15: She feels much better after dialysis. 08/16: GPC possible Enterococcus 11,000?25. 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 No antibiotic indicated. UTI ruled out. 7. Factor V Leiden deficiency hold off on her aspirin for now. 8. Hypertension: BP usually normal 131-136 and drops 95/70 mmHg during hemodialysis on Lasix. Hold antihypertensive medication. 9. Hypothyroidism: Continue levothyroxine 10. History of C. difficile: During previous admission, C. difficile antigen was positive but toxin is negative. Does not have active symptoms abdominal pain or cramps or diarrhea. No treatment indicated 11. Depression: Continue sertraline. 12. 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 Present since last admission VTE prophylaxis with SCDs for now Living will/advanced directive/end of life care: Patient does not have living will or advanced directive but has legal power of assistant prosecuting attorney for health.. After d iscussion of benefits/risks procedures involved with full code, DNR CC arrest and DNR CC, the patient opted for DNR CC arrest with no intubation. I explained the risk and benefit of CPR or intubation, DC shock, central line. 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 0, MCHC 30.9 L, RDW Std Deviation 69.5 H, RDW Coeff of Monika 21.3 H, Plt Count 159, MPV 10.8, Immature Gran % (Auto) 2.400 H, Neut % (Auto) 76.6 H, Lymph % (Auto) 10.9 L, [place] % (Auto) 7.0, Eos % (Auto) 2.4, Baso % (Auto) 0.7, Absolute Neuts (auto) 3.2, Absolute Lymphs (auto) 0.45 L, Nucleated RBC % 0, Anisocytosis 1+, [place] [address] H, Triglycerides 71, Cholesterol 62, LDL Cholesterol, Calc 23, VLDL Cholesterol 14, HDL Cholesterol 25 L, Cholesterol/HDL Ratio 2.48, TSH 10.600 H 08/15/24 05:51: POC Glucose 104 08/15/24 09:02: Fluid pH Pending, Fluid Glucose 111, Fluid Total Protein 1.9, Fluid LDH 51, Fluid Amylase Pending 08/15/24 09:20: Fluid Source THORACENTESIS, Fluid Color LT YEL, Fluid Appearance CLEAR, Fluid WBC 0.023, Fluid RBC 6, Fluid Tot Cell Count 0.024 H, Fld Polynuclear WBCs # 0.002, Fld Polynuclear WBCs % 8.7, Fluid Mononuclear WBCs 0.021, Fld Mononuclear WBCs % 91.3, Fluid Neutrophils 4, Fluid Lymphocytes 32, Fluid Monocytes 60, Fld Mesothelial Cells 4, Fl Pathologist Comment May follow, Fluid Comment 2 SEE COMMENT 08/15/24 09:25: Miscellaneous Cytology Pending 08/15/24 10:01: POC Glucose 70 L 08/15/24 15:45: POC Glucose 90 Allergies/Procedures Done in Hospital Allergies iodine Allergy (Intermediate, Verified 08/14/24 07:32) Nausea shellfish derived Allergy (Intermediate, Verified 08/14/24 07:32) Nausea Type of Care/Length of Stay Estimated LOS: More Than 30 Days Type of Care Needed: Intermediate Rehab Potential: Fair Prognosis: Fair Additional Orders/Day of Discharge Day of Discharge: 08/17/24 Dietary and Speech Recommendations Dietitian Recommendations/Changes: Recommend via PEG tube Jevity 1.5 at 50mL/hr x 24hours with 60mL water flush q4 hours to meet estimated nutrition needs. Will order 4oz Pramod BID medpass once diet has been advanced. Advance diet as tolerated to Regular with texture/consistency per ARTS ADMINISTRATOR OR MANAGER when medically able for pleasure. Discharge Plan Admission Admit Date/Time: 08/14/24 11:52 Attending Provider: Nikolas Magaña Primary Care Provider: Millie Massey Consulting Providers: Angie Torres Instructions Patient Instructions: SYL MEJIA Thoracentesis Dc Discharge Orders/Prescriptions Prescriptions: New pantoprazole 40 mg Tablet,Delayed Release (Dr/Ec) 40 mg PO DAILY Qty: 0 0RF IV with Additives Jevity 1.5 1000 ML 50 mls/hr GT Hold for bowel cramps for 1-2 hour Ordered By: Nikolas Magaña MD Last Taken: 08/16/24 21:25 50 mls/hr Continued cyclobenzaprine 5 mg tablet 5 mg PO Q8H PRN (Reason: MUSCLE SPASMS) acetaminophen 325 mg tablet 650 mg PO Q4H PRN (Reason: fever) guaifenesin 100 mg/5 mL liquid 200 mg PO Q4H PRN (Reason: cough) dronabinol [Marinol] 2.5 mg capsule 2.5 mg PO BID Rx Instructions: administer before lunch and evening meal/dinner sertraline 25 mg tablet 25 mg PO DAILY Renal Vitamin 0.8 mg tablet 1 tab PO DAILY polyethylene glycol 3350 17 gram/dose powder 17 g PO QODAY Rx Instructions: EVERY OTHER DAY AT BED TIME ondansetron 4 mg tablet,disintegrating 4 mg PO DAILY PRN (Reason: nausea and vomiting) docusate sodium 100 mg tablet 100 mg PO BID PRN (Reason: constipation) midodrine 10 mg tablet 10 mg PO DAILY PRN (Reason: for SBP lower than 110 during dialysis tx) Rx Instructions: for SBP lower than 110 during dialysis tx acetaminophen 650 mg suppository 650 mg UT Q4H PRN (Reason: fever or pain) Enema 19-7 gram/118 mL enema 118 ml UT DAILY PRN (Reason: constipation) Rx Instructions: NEEDED FOR CONSTIPATION FOR 2 EPISODES IF DULCOLAX SUPP INEFFECTIVE. CALL PHYSICIAN IF NO BM X4 DAYS dextrose [Glucose Gel] 40 % gel 10 g PO Q15M PRN (Reason: hypoglycemia) Rx Instructions: until symptoms of low blood sugar are controlled mirtazapine 15 mg tablet 15 mg PO QHS aspirin [Adult Aspirin Regimen] 81 mg tablet,delayed release (DR/EC) 81 mg PO DAILY Patient Comments: HOLD UNTIL 08/20/24 atorvastatin 20 mg tablet 20 mg PO QHS metoprolol tartrate 25 mg tablet 25 mg PO BID oxycodone 5 mg tablet 5 mg PO Q6H PRN (Reason: pain) thiamine HCl (vitamin B1) 100 mg tablet 100 mg PO BID amlodipine 5 mg tablet 5 mg PO QHS levothyroxine 200 mcg tablet 200 mcg PO DAILY sennosides-docusate sodium [Senna Plus] 8.6-50 mg tablet 1 tab-cap PO DAILY PRN (Reason: constipation) Culturelle 10 billion cell capsule 1 cap PO DAILY aluminum-magnesium hydroxide 200-200 mg/5 mL suspension 30 ml PO Q4H PRN (Reason: GI DISTRESS) bisacodyl 10 mg suppository 10 mg UT DAILY PRN (Reason: constipation) glucagon HCl [Glucagon (HCl) Emergency Kit] 1 mg recon soln 1 mg IM Q20M PRN (Reason: hypoglycemia) Rx Instructions: until target blood sugar attained cholecalciferol (vitamin D3) 125 mcg (5,000 unit) capsule 125 mcg PO DAILY loperamide 2 mg Capsule 2 mg PO Q4H PRN (Reason: DIARRHEA) Qty: 0 0RF Patient Comments: START DATE-08/13/24 END DATE-08/20/24 Rx Instructions: For about 1 week as needed for diarrhea ascorbic acid (vitamin C) 500 mg Tablet 500 mg PO DAILY Qty: 0 0RF ferrous sulfate 325 mg (65 mg iron) tablet 325 mg PO QODAY Qty: 30 2RF Discontinued pantoprazole 40 mg Tablet,Delayed Release (Dr/Ec) 40 mg PO BID Qty: 0 2RF Patient Comments: START DATE- 08/13/24 END DATE- 11/12/24 Rx Instructions: For total of 3 months to heal gastric ulcer Referrals / Follow Up: Millie Massey MD [Primary Care Provider] - Disposition Disposition (needs filled in before D/C Order can be placed): NonSkilled NH/Intermed Care
--- NOTE | 2024-08-17 09:22 | DS.PCM_ITS ---
Providers Date of Admission: 08/14/24 Date of Discharge: 08/17/24 Primary Care Physician: Dr. Millie Massey MD Consultations 08/14/24 11:51 Consult: Nephrology Routine Consulting Provider: Angie Torres Reason for Consult: esrd on HD, NEED HD today EMERGENT Consult: No MD Notified: Yes Date Notified: 08/14/24 Time Notified: 11:51 Method of Notification: Verbal Reason For Visit: ANASARCA, SOB Diagnosis Discharge Diagnosis (1) Pulmonary edema: Status: Acute Code(s): J81.1 - Chronic pulmonary edema (2) Anasarca: Status: Acute Code(s): R60.1 - Generalized edema Plan This is a 64-year-old female being admitted for shortness of breath, tachypnea and dyspnea, bilateral lower extremity edema and chest x-ray finding of small to moderate bilateral effusion and pleural treatment 1. Pulmonary edema/anasarca due to ESRD on hemodialysis and possible heart failure: Patient is being admitted in PCU. 2D echo is ordered. Heart failure core measures including intake and output, fluid restriction less than 1500 mL, daily weight monitoring, light Naif wrap bandage, kidney and electrolytes monitoring. Lasix 40 mg IV 1 dose ordered. 08/15: Patient shortness of breath got much better after dialysis yesterday. Currently on 2 L of oxygen 08/16: Shortness of breath is better. Patient currently on room air 2. Bilateral pleural effusion, small to moderate: This was present on the previous CT chest does not seem increased. Chest ultrasound with diagnostic thoracocentesis and fluid analysis labs ordered to confirm whether enough fluid for thoracocentesis but from chest x-ray discussed with Dr. Fox Contreras and seems small pleural effusion 08/16: Pleural fluid culture shows no organisms. Blood culture negative for more than 48 hours. Patient had 520 mL fluid aspirated on 08/15. It is transudative in nature 08/17: At times patient is on room air. Currently 96% on room air. No hypoxia. Blood pressure is controlled in acceptable range 152/76 as sometimes she gets hypotensive. 3. Recent PEG tube bumper ruptured with complex abdominal fluid collection in the abdominal cavity and the abnormal CT abdomen during last admission: Patient had 8 days of IV Zosyn during last admission. EGD on 08/03/2024 reviewed Impressions : - Normal esophagus. - Dislodged gastrostomy tube present characterized by ulceration. Treated with argon plasma coagulation (APC). - A non-bleeding large defect due to buried peg tube bumper was found in the stomach. Clips were placed. - No gross lesions in the duodenal bulb. Continue tube feed feeding. 4. Severe anemia that required blood transfusion during last admission from CKD/ruptured PEG tube: Her hemoglobin was 6.6 on 08/12 increased to 8.7. MCV normal. Platelet count 100 47K. Monitor hemoglobin. Anticoagulants contraindicated. She required PRBC transfusion during last admission 08/15: H&H is 7.3/24.6%. Monitor CBC. 08/16 H&H 9.1/30.5%. Platelet 179K. 08/17: H&H 10.5/34.6% 5 severe protein-calorie malnutrition: Her BMI was 12.6 kg/m?. Increased to 16.7 kg/m?. Continue nutrition consult and follow-up. On tube feed Jevity 1.5, 50 cc/h. 08/16: Patient having bowel cramps/abdominal cramps probably due to tube feed. Advised to hold tube feeds for now. Bentyl as needed ordered for abdominal cramps 6. Chronic Open abdominal wall wound: Chronic since February 2024. Had wound VAC at that time. Continue follow-up with the wound care. Healing good. End stage renal disease: Secondary to ATN from hemorrhagic shock and never had recovery. Patient on dialysis every Monday. Geothermal Operating Engineer consulted 08/15: She feels much better after dialysis. 08/16: GPC possible Enterococcus 11,000?25. Growing GNR lactose application integration specialist 1000- 10,000 mixed organisms suggestive of contamination and below pathology range. No antibiotic indicated. UTI ruled out. 08/17: Patient had hemodialysis yesterday. 7. Factor V Leiden deficiency hold off on her aspirin for now. 8. Hypertension: BP usually normal 131-136 and drops 95/70 mmHg during hemodialysis on Lasix. Hold antihypertensive medication. 9. Hypothyroidism: Continue levothyroxine 10. History of C. difficile: During previous admission, C. difficile antigen was positive but toxin is negative. Does not have active symptoms abdominal pain or cramps or diarrhea. No treatment indicated 11. Depression: Continue sertraline. 12. 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 Present since last admission VTE prophylaxis with SCDs for now Living will/advanced directive/end of life care: Patient does not have living will or advanced directive but has legal power of environmental engineering assistant for health.. After discussion of benefits/risks procedures involved with full code, DNR CC arrest and DNR CC, the patient opted for DNR CC arrest with no intubation. I explained the risk and benefit of CPR or intubation, DC shock, central line. Patient doesn't want artificial life support including intubation, ventilator and/chest compression but want central venous catheter, vasopressor and DC shock if needed Microbiology Past 72 Hours 08/15/24 09:19 Fluid - Pleural (Lung) Gram Stain - Final 08/15/24 09:19 Fluid - Pleural (Lung) Body Fluid Culture - Preliminary No growth-Final to follow 08/14/24 08:48 Urine Catheter - Gutiérrez Urine Culture - Preliminary Enterococcus faecium GNR lactose application integration specialist 08/14/24 08:50 Blood Culture (Wb) - Anticubital Left Blood Culture - Preliminary No growth in 48 hours. 08/14/24 07:48 Blood Culture (Wb) - Anticubital Left Blood Culture - Preliminary No growth in 48 hours. 08/14/24 07:35 Mucosa - Nose SARS-CoV-2, Influenza & RSV (PCR) - Final Laboratory Results 08/16/24 09:41: POC Glucose 24 L* 08/16/24 11:22: Glucose 109 H 08/16/24 21:19: Glucose 91 08/17/24 00:21: Glucose 73 08/17/24 06:14: WBC 4.4, RBC 3.70 L, Hgb 10.5 L, Hct 34.6 L, MCV 93.5, MCH 28.4, MCHC 30.3 L, RDW Std Deviation 74.1 H, RDW Coeff of Monika 23.1 H, Plt Count 146 L, MPV 9.2, Immature Gran % (Auto) 1.800 H, Neut % (Auto) 73.5 H, Lymph % (Auto) 13.4 L, [place] % (Auto) 7.0, Eos % (Auto) 3.4, Baso % (Auto) 0.9, Absolute Neuts (auto) 3.2, Absolute Lymphs (auto) 0.59 L, Nucleated RBC % 0, Polychromasia 2+, Anisocytosis 1+, Ovalocytes 1+, Sodium 133, Potassium 4.7, Chloride 101, Carbon Dioxide 19.8 L, Anion Gap 12, BUN 22 H, Creatinine 1.07, Estim Creat Clear Calc 42.17 L, Est GFR (MDRD) Non-Af 59 L, BUN/Creatinine Ratio 20.8 H, Glucose 83, Calcium 8.2 Medications at Discharge Home Medications aspirin 81 mg tablet,delayed release (Adult Aspirin Regimen) 81 mg PO DAILY 03/11/24 atorvastatin 20 mg tablet 20 mg PO QHS 03/11/24 metoprolol tartrate 25 mg tablet 25 mg PO BID 03/11/24 thiamine HCl (vitamin B1) 100 mg tablet 100 mg PO BID 04/11/24 cyclobenzaprine 5 mg tablet 5 mg PO Q8H PRN MUSCLE SPASMS 06/05/24 Lactobacillus rhamnosus GG 10 billion cell capsule (Culturelle) 1 cap PO DAILY 07/18/24 acetaminophen 325 mg tablet 650 mg PO Q4H PRN fever 07/18/24 aluminum-magnesium hydroxide 200 mg-200 mg/5 mL oral suspension 30 ml PO Q4H PRN GI DISTRESS 07/18/24 amlodipine 5 mg tablet 5 mg PO QHS 07/18/24 docusate sodium 100 mg tablet 100 mg PO BID PRN constipation 07/18/24 dronabinol 2.5 mg capsule (Marinol) 2.5 mg PO BID 07/18/24 guaifenesin 100 mg/5 mL oral liquid 200 mg PO Q4H PRN cough 07/18/24 levothyroxine 200 mcg tablet 200 mcg PO DAILY 07/18/24 midodrine 10 mg tablet 10 mg PO DAILY PRN for SBP lower than 110 during dialysis tx 07/18/24 ondansetron 4 mg disintegrating tablet 4 mg PO DAILY PRN nausea and vomiting 07/18/24 oxycodone 5 mg tablet 5 mg PO Q6H PRN pain 07/18/24 polyethylene glycol 3350 17 gram/dose oral powder 17 g PO QODAY 07/18/24 sennosides 8.6 mg-docusate sodium 50 mg tablet (Senna Plus) 1 tab-cap PO DAILY PRN constipation 07/18/24 sertraline 25 mg tablet 25 mg PO DAILY 07/18/24 vitamin B complex-vitamin C-folic acid 0.8 mg tablet (Renal Vitamin) 1 tab PO DAILY 07/18/24 bisacodyl 10 mg rectal suppository 10 mg OH DAILY PRN constipation 07/31/24 cholecalciferol (vitamin D3) 125 mcg (5,000 unit) capsule 125 mcg PO DAILY 07/31/24 glucagon HCl 1 mg solution for injection (Glucagon (HCl) Emergency Kit) 1 mg IM Q20M PRN hypoglycemia 07/31/24 ascorbic acid (vitamin C) 500 mg tablet 500 mg PO DAILY #0 tabs 08/13/24 ferrous sulfate 325 mg (65 mg iron) tablet 325 mg PO QODAY #30 tabs 08/13/24 loperamide 2 mg capsule 2 mg PO Q4H PRN DIARRHEA #0 caps 08/13/24 acetaminophen 650 mg rectal suppository 650 mg OH Q4H PRN fever or pain 08/14/24 dextrose 40 % oral gel (Glucose Gel) 10 g PO Q15M PRN hypoglycemia 08/14/24 mirtazapine 15 mg tablet 15 mg PO QHS 08/14/24 sodium phosphates 19 gram-7 gram/118 mL enema (Enema) 118 ml OH DAILY PRN constipation 08/14/24 IV with Additives 50 mls/hr GT 08/17/24 pantoprazole 40 mg tablet,delayed release 40 mg PO DAILY #0 tabs 08/17/24 Physical Exam Narrative Seen and examined. No acute issues overnight. Patient not short of breath but feels mild abdominal cramps on tube feed Physical exam General: Alert, Oriented x3, Cooperative, BMI 16.7 kg/m? HEENT: Atraumatic, PERRLA, EOMI, Normocephalic Oral: No Gingival or Mucosal Lesions/ Ulcerations Neck: Supple, No JVD, Negative Carotid Bruits Chest wall/Lungs: Air entry diminished in bilateral lung bases. No crepitation/rhonchi Cardiovascular: Regular rate, Regular Rhythm, Normal S1, Normal S2, No M/G/R Abdomen: PEG tube. Dressing on the left upper quadrant abdominal wall ulcer, healing with granulation tissue. Bowel Sounds Present, soft, nontender : No dysuria. No renal angle tenderness. No suprapubic tenderness. Extremities: Bilateral pitting edema from thigh downward, stage II decubitus coccygeal ulcer present since last admission Musculoskeletal: No Tenderness to Palpation of Joints or Extremities, chronic severe muscle atrophy. ROM restricted Neurological: Cranial nerves II-XII grossly intact, DTR 2+/4. Muscle power 3/5 at major joints Psych/Mental Status: Flat affect, amnesia/MCI Weight / BMI Weight Weight: 108 lb 0.424 oz Body Mass Index (BMI) 14.6 ABG / Lab / Microbiology Data 08/17/24 06:14 08/17/24 06:14 Laboratory: Laboratory Results - last 24 hr 08/16/24 09:41: POC Glucose 24 L* 08/16/24 11:22: Glucose 109 H 08/16/24 21:19: Glucose 91 08/17/24 00:21: Glucose 73 08/17/24 06:14: WBC 4.4, RBC 3.70 L, Hgb 10.5 L, Hct 34.6 L, MCV 93.5, MCH 28.4, MCHC 30.3 L, RDW Std Deviation 74.1 H, RDW Coeff of Monika 23.1 H, Plt Count 146 L, MPV 9.2, Immature Gran % (Auto) 1.800 H, Neut % (Auto) 73.5 H, Lymph % (Auto) 13.4 L, [place] % (Auto) 7.0, Eos % (Auto) 3.4, Baso % (Auto) 0.9, Absolute Neuts (auto) 3.2, Absolute Lymphs (auto) 0.59 L, Nucleated RBC % 0, Polychromasia 2+, Anisocytosis 1+, Ovalocytes 1+, Sodium 133, Potassium 4.7, Chloride 101, Carbon Dioxide 19.8 L, Anion Gap 12, BUN 22 H, Creatinine 1.07, Estim Creat Clear Calc 42.17 L, Est GFR (MDRD) Non-Af 59 L, BUN/Creatinine Ratio 20.8 H, Glucose 83, Calcium 8.2 Microbiology: Microbiology 08/15/24 09:19 Fluid - Pleural (Lung) Gram Stain - Final 08/15/24 09:19 Fluid - Pleural (Lung) Body Fluid Culture - Preliminary No growth-Final to follow 08/14/24 08:48 Urine Catheter - Gutiérrez Urine Culture - Preliminary Enterococcus faecium GNR lactose application integration specialist 08/14/24 08:50 Blood Culture (Wb) - Anticubital Left Blood Culture - Preliminary No growth in 48 hours. 08/14/24 07:48 Blood Culture (Wb) - Anticubital Left Blood Culture - Preliminary No growth in 48 hours. 08/14/24 07:35 Mucosa - Nose SARS-CoV-2, Influenza & RSV (PCR) - Final D/C Instructions DC O2, CPAP, BIPAP Needs Home O2 Discharge instructions: Yes Type of respiratory needs?: Oxygen Oxygen frequency: Continuous Continuous oxygen liters per minute: 2 DC home with Oxygen: Yes Home O2 MD Review: I have reviewed the oxygen testing, and the patient qualifies for home oxygen equipment and portability. The patient is mobile in the home and the community. Meaningful Use Info Meaningful Use Meaningful Use Diagnoses (Choose all that apply): None applicable Ischemic Stroke Statin Dosing Therapy Reference: STATIN DOSE THERAPY REFERENCE: * Patients > 75 years receive moderate or high dose statin therapy. * Patients 75 years or YOUNGER should receive HIGH intensity statin dose unless contraindicated. You will be required to document reason for non-treatment if statin daily dose does not meet guidelines. HIGH DOSE STATIN THERAPY DAILY Atorvastatin > than or = to 40 mg Rosuvastatin > than or = to 20 mg Amlodipine + Atorvastatin > than or = to 2.5/40 mg Ezetimibe + Simvastatin 10/80 mg Simvastatin 80mg Discharge Plan Admission Admit Date/Time: 08/14/24 11:52 Attending Provider: Nikolas Magaña Primary Care Provider: Millie Massey Consulting Providers: Angie Torres Instructions Patient Instructions: SYL RN Thoracentesis Dc Discharge Orders/Prescriptions Prescriptions: New pantoprazole 40 mg Tablet,Delayed Release (Dr/Ec) 40 mg PO DAILY Qty: 0 0RF IV with Additives Jevity 1.5 1000 ML 50 mls/hr GT Hold for bowel cramps for 1-2 hour Ordered By: Nikolas Magaña MD Last Taken: 08/16/24 21:25 50 mls/hr Continued cyclobenzaprine 5 mg tablet 5 mg PO Q8H PRN (Reason: MUSCLE SPASMS) acetaminophen 325 mg tablet 650 mg PO Q4H PRN (Reason: fever) guaifenesin 100 mg/5 mL liquid 200 mg PO Q4H PRN (Reason: cough) dronabinol [Marinol] 2.5 mg capsule 2.5 mg PO BID Rx Instructions: administer before lunch and evening meal/dinner sertraline 25 mg tablet 25 mg PO DAILY Renal Vitamin 0.8 mg tablet 1 tab PO DAILY polyethylene glycol 3350 17 gram/dose powder 17 g PO QODAY Rx Instructions: EVERY OTHER DAY AT BED TIME ondansetron 4 mg tablet,disintegrating 4 mg PO DAILY PRN (Reason: nausea and vomiting) docusate sodium 100 mg tablet 100 mg PO BID PRN (Reason: constipation) midodrine 10 mg tablet 10 mg PO DAILY PRN (Reason: for SBP lower than 110 during dialysis tx) Rx Instructions: for SBP lower than 110 during dialysis tx acetaminophen 650 mg suppository 650 mg OH Q4H PRN (Reason: fever or pain) Enema 19-7 gram/118 mL enema 118 ml OH DAILY PRN (Reason: constipation) Rx Instructions: NEEDED FOR CONSTIPATION FOR 2 EPISODES IF DULCOLAX SUPP INEFFECTIVE. CALL PHYSICIAN IF NO BM X4 DAYS dextrose [Glucose Gel] 40 % gel 10 g PO Q15M PRN (Reason: hypoglycemia) Rx Instructions: until symptoms of low blood sugar are controlled mirtazapine 15 mg tablet 15 mg PO QHS aspirin [Adult Aspirin Regimen] 81 mg tablet,delayed release (DR/EC) 81 mg PO DAILY Patient Comments: HOLD UNTIL 08/20/24 atorvastatin 20 mg tablet 20 mg PO QHS metoprolol tartrate 25 mg tablet 25 mg PO BID oxycodone 5 mg tablet 5 mg PO Q6H PRN (Reason: pain) thiamine HCl (vitamin B1) 100 mg tablet 100 mg PO BID amlodipine 5 mg tablet 5 mg PO QHS levothyroxine 200 mcg tablet 200 mcg PO DAILY sennosides-docusate sodium [Senna Plus] 8.6-50 mg tablet 1 tab-cap PO DAILY PRN (Reason: constipation) Culturelle 10 billion cell capsule 1 cap PO DAILY aluminum-magnesium hydroxide 200-200 mg/5 mL suspension 30 ml PO Q4H PRN (Reason: GI DISTRESS) bisacodyl 10 mg suppository 10 mg OH DAILY PRN (Reason: constipation) glucagon HCl [Glucagon (HCl) Emergency Kit] 1 mg recon soln 1 mg IM Q20M PRN (Reason: hypoglycemia) Rx Instructions: until target blood sugar attained cholecalciferol (vitamin D3) 125 mcg (5,000 unit) capsule 125 mcg PO DAILY loperamide 2 mg Capsule 2 mg PO Q4H PRN (Reason: DIARRHEA) Qty: 0 0RF Patient Comments: START DATE-08/13/24 END DATE-08/20/24 Rx Instructions: For about 1 week as needed for diarrhea ascorbic acid (vitamin C) 500 mg Tablet 500 mg PO DAILY Qty: 0 0RF ferrous sulfate 325 mg (65 mg iron) tablet 325 mg PO QODAY Qty: 30 2RF Discontinued pantoprazole 40 mg Tablet,Delayed Release (Dr/Ec) 40 mg PO BID Qty: 0 2RF Patient Comments: START DATE- 08/13/24 END DATE- 11/12/24 Rx Instructions: For total of 3 months to heal gastric ulcer Referrals / Follow Up: Millie Massey MD [Primary Care Provider] - Disposition Disposition (needs filled in before D/C Order can be placed): NonSkilled NH/Intermed Care Charges/Coding Visit Charges Inpatient E&M: 28136 Disch Hosp >30min
--- NOTE | 2024-08-17 09:31 | CASEMGMT ---
Social Work- Physician feels that pt is medically ready for discharge. Pt agreeable to return to [facility]; intermediate level of care. Green sheet on chart; final arrangements to be competed by refinery operator crude unit. Plan: [facility]; intermediate level of care RICKY Foss
[2024-08-17] MEDS: Pantoprazole Sodium 40 MG Tablet PO (09:38)
[2024-08-17] MEDS: Dronabinol 2.5 MG Capsule PO (09:38)
[2024-08-17] MEDS: Ferrous Sulfate 325 MG Tablet PO (09:38)
[2024-08-17] MEDS: Cholecalciferol (Vit D3) 125 MCG CAPSULE (5,000 UNITS) GT (09:38)
[2024-08-17] MEDS: Thiamine Hydrochloride 100 MG Tablet GT (09:38)
[2024-08-17] MEDS: Ascorbic Acid 500 MG Tablet GT (09:38)
[2024-08-17] MEDS: Sertraline 50 MG Tablet 25 MG GT (09:38)
[2024-08-17 09:39] VITALS: BP 162/96; PULSE 107
[2024-08-17] MEDS: Metoprolol Tartrate 25 MG Tablet GT (09:39)
[2024-08-17 09:46] VITALS: BP 162/96; PULSE 107; RESP 18; TEMP 36.6; O2SAT 97
--- NOTE | 2024-08-17 10:37 | NURSING ---
Report called to nurse Fletcher for pt to be d/c back to [facility].
[2024-08-20 12:08] LABS: Amylase Body Fluid 30 U/L (.); pH, Body Fluid 11254 7.3 (Not Estab.)
== END 2024-08-17 12:05 | disposition intermediate care facility (04) | DRG 189 ==
LOC: ED 09:54 → PCU 12:39
PROVIDERS: Admitting Provider Internal Medicine; Emergency Provider Surgery; PCP Internal Medicine; Visit Provider Internal Medicine
DX: J81.1 Chronic pulmonary edema (principal); E43 Unspecified severe protein-calorie malnutrition; N18.6 End stage renal disease; I70.263 Atherosclerosis of native arteries of extremities with gangrene, bilateral legs; I12.0 Hypertensive chronic kidney disease with stage 5 chronic kidney disease or end stage renal disease; E87.1 Hypo-osmolality and hyponatremia; J90 Pleural effusion, not elsewhere classified; I73.01 Raynaud's syndrome with gangrene; D68.51 Activated protein C resistance; Z68.1 Body mass index [BMI] 19.9 or less, adult; L89.152 Pressure ulcer of sacral region, stage 2; D69.6 Thrombocytopenia, unspecified; Z51.5 Encounter for palliative care; J43.9 Emphysema, unspecified; E03.9 Hypothyroidism, unspecified; D63.1 Anemia in chronic kidney disease; F32.A Depression, unspecified; Z93.1 Gastrostomy status; E78.5 Hyperlipidemia, unspecified; E87.5 Hyperkalemia; Z99.2 Dependence on renal dialysis; S31.109A Unspecified open wound of abdominal wall, unspecified quadrant without penetration into peritoneal cavity, initial encounter; S91.101A Unspecified open wound of right great toe without damage to nail, initial encounter; S91.102A Unspecified open wound of left great toe without damage to nail, initial encounter; Z66 Do not resuscitate; Z87.891 Personal history of nicotine dependence; Z79.890 Hormone replacement therapy; Z79.82 Long term (current) use of aspirin; R10.9 Unspecified abdominal pain; Z86.16 Personal history of COVID-19; Z79.899 Other long term (current) drug therapy; Z79.02 Long term (current) use of antithrombotics/antiplatelets
CPT/HCPCS: 32555; 36415; 36600; 71045; 71046; 74230; 80048; 80053; 80061; 81001; 82150; 82803; 82945; 82947; 82962; 83605; 83615; 83735; 83880; 83986; 84100; 84155; 84157; 84443; 84484; 85025; 85610; 85730; 87040; 87070; 87075; 87077; 87086; 87088; 87186; 87205; 87631; 88108; 88305; 88313; 89050; 90937; 92526; 92610; 92611; 93005; 93306; 93985; 94640; 97802; 99285; A4216; G0257; J1940; Q5106

== ENCOUNTER → 2024-08-14 | Outpatient (REF) | payer OTHER, SELFPAY ==
[2024-08-14 09:04] LABS: Hematocrit 30.9 % (37-47); Hemoglobin 9.2 g/dL (12.0-15.0); Mean Corp Hgb Conc 29.8 g/dL (32-36); Mean Corpuscular Hgb 27.6 pg (27.0-32.0); Mean Corpuscular Volume 92.8 fL (81-99); Mean Platelet Vol. 10.8 fl (6.2-12.0); POSITIVE MORPHOLOGY YES; Platelet Count 137 K/mm3 (150-450); RBC Distribution Width SD 69.6 fl (35.1-43.9); Red Blood Count 3.33 M/mm3 (4.2-5.4); White Blood Count 4.1 K/mm3 (4.4-11.0)
[2024-08-14 09:21] LABS: Scan Indicated on CBC? Y/N YES- FLAGS NOTED
[2024-08-14 09:38] LABS: Cholesterol 72 mg/dL (<=200); High Density Lipoprotein 27 mg/dL; Low Density Lipoprotein Calc. 36 mg/dL; Magnesium 1.5 mg/dL (1.5-2.2); Triglycerides 46 mg/dL; Very Low Density Lipoprotein 9 mg/dL (5-40); cholesterol:hdl ratio screen 2.71
[2024-08-14 10:08] LABS: Anion Gap 7 (5-15); BUN 39 mg/dL (4-19); BUN/Creat Ratio 28.9 RATIO (10-20); Calcium,Total 7.8 mg/dL (7.6-11.0); Carbon Dioxide 19.9 mmol/L (21.0-32.0); Chloride 105 mmol/L (98-108); Creatinine, Serum 1.34 mg/dL (0.70-1.20); EST Glomerular Filtration Rate 45 (>60); Glucose 84 mg/dL (70-99); Potassium 5.3 mmol/L (3.3-5.1); Sodium Level 132 mmol/L (133-145); Vitamin B12 599 pg/mL (180-914); Vitamin D,25 Hydroxy 26.7 ng/mL (30-100)
== END ==
LOC: OLS.SW 05:00
PROVIDERS: PCP Family Medicine; Visit Provider Internal Medicine
DX: D64.9 Anemia, unspecified (principal); I12.0 Hypertensive chronic kidney disease with stage 5 chronic kidney disease or end stage renal disease; N18.6 End stage renal disease
CPT/HCPCS: 36415; 80048; 80061; 82306; 82607; 83735; 84443; 85027

== ENCOUNTER → 2024-08-22 | Outpatient (REF) | payer OTHER, SELFPAY ==
[2024-08-22 08:15] LABS: Anion Gap 7 (5-15); BUN 18 mg/dL (4-19); BUN/Creat Ratio 20.6 RATIO (10-20); Calcium,Total 7.7 mg/dL (7.6-11.0); Carbon Dioxide 30.8 mmol/L (21.0-32.0); Chloride 99 mmol/L (98-108); Creatinine, Serum 0.89 mg/dL (0.70-1.20); EST Glomerular Filtration Rate 73 (>60); Glucose 113 mg/dL (70-99); Potassium 3.4 mmol/L (3.3-5.1); Sodium Level 136 mmol/L (133-145)
== END ==
LOC: OLS.SW 05:00
PROVIDERS: PCP Internal Medicine; Visit Provider Internal Medicine
DX: E87.5 Hyperkalemia (principal)
CPT/HCPCS: 36415; 80048

== ENCOUNTER → 2024-08-26 | Outpatient (REF) | payer OTHER, SELFPAY ==
[2024-08-26 08:40] LABS: Hematocrit 23.6 % (37-47); Mean Corp Hgb Conc 29.7 g/dL (32-36); Mean Corpuscular Hgb 27.7 pg (27.0-32.0); Mean Corpuscular Volume 93.3 fL (81-99); Mean Platelet Vol. 10.2 fl (6.2-12.0); POSITIVE MORPHOLOGY YES; Platelet Count 260 K/mm3 (150-450); RBC Distribution Width CV 21.6 % (11.6-14.6); RBC Distribution Width SD 71.9 fl (35.1-43.9); Red Blood Count 2.53 M/mm3 (4.2-5.4); White Blood Count 4.2 K/mm3 (4.4-11.0)
[2024-08-26 08:43] LABS: Scan Indicated on CBC? Y/N YES- FLAGS NOTED
[2024-08-26 08:49] LABS: Magnesium 1.8 mg/dL (1.5-2.2)
[2024-08-26 08:54] LABS: ALB/GLOB Ratio 0.6 RATIO (0.9-2.4); AST(SGOT) 30 U/L (<=31); Alanine Aminotransfer ALT/SGPT 10 U/L (<=34); Albumin, Serum 2.1 g/dL (3.4-4.8); Alkaline Phosphatase 81 U/L (35-104); Anion Gap 12 (5-15); BUN 36 mg/dL (4-19); BUN/Creat Ratio 24.2 RATIO (10-20); Calcium,Total 8.2 mg/dL (7.6-11.0); Carbon Dioxide 23.7 mmol/L (21.0-32.0); Chloride 96 mmol/L (98-108); Creatinine, Serum 1.49 mg/dL (0.70-1.20); EST Glomerular Filtration Rate 39 (>60); Globulin 3.3 g/dL (2.2-4.2); Glucose 93 mg/dL (70-99); Potassium 4.9 mmol/L (3.3-5.1); Protein, Total 5.4 g/dL (5.9-8.4); Sodium Level 131 mmol/L (133-145); Total Bilirubin 0.19 mg/dL (0.00-1.30)
== END ==
LOC: OLS.SW 04:00
PROVIDERS: PCP Internal Medicine; Referring Provider Internal Medicine; Visit Provider Internal Medicine
DX: J81.1 Chronic pulmonary edema (principal); N18.6 End stage renal disease
CPT/HCPCS: 36415; 80053; 83735; 85027

== ENCOUNTER → 2024-08-28 | Outpatient (REF) | payer OTHER, SELFPAY ==
[2024-08-28 09:36] LABS: Hematocrit 24.2 % (37-47); Hemoglobin 7.1 g/dL (12.0-15.0); Mean Corp Hgb Conc 29.3 g/dL (32-36); Mean Corpuscular Hgb 27.8 pg (27.0-32.0); Mean Corpuscular Volume 94.9 fL (81-99); Mean Platelet Vol. 10.8 fl (6.2-12.0); POSITIVE MORPHOLOGY YES; Platelet Count 261 K/mm3 (150-450); RBC Distribution Width CV 21.5 % (11.6-14.6); RBC Distribution Width SD 74.1 fl (35.1-43.9); Red Blood Count 2.55 M/mm3 (4.2-5.4); White Blood Count 4.3 K/mm3 (4.4-11.0)
[2024-08-28 09:43] LABS: Scan Indicated on CBC? Y/N YES- FLAGS NOTED
== END ==
LOC: OLS.SW 05:00
PROVIDERS: PCP Internal Medicine; Visit Provider Internal Medicine
DX: D64.9 Anemia, unspecified (principal); I10 Essential (primary) hypertension
CPT/HCPCS: 36415; 85027

== ENCOUNTER 2024-08-31 09:01 | Outpatient (CLI) | payer OTHER, SELFPAY ==
[2024-08-31 09:34] VITALS: BP 102/65; PULSE 65; RESP 18; TEMP 37.1; O2SAT 95
--- NOTE | 2024-08-31 09:40 | NUR.TO.PHY ---
Pt arrived from [facility]. She is alert and oriented x 3 . Denise transfer to bed and oriented to staff and room.
--- NOTE | 2024-08-31 10:51 | NURSING ---
Down time form for Blood administration inititated. Verified with RN as documented. Pt resting in bed.
[2024-08-31 14:00] VITALS: BP 126/71; PULSE 70; RESP 16; TEMP 36.1; O2SAT 96
--- NOTE | 2024-08-31 14:43 | NURSING ---
PRBC # 1 unit complete. PT remains resting well in bed. #2 unit of PRBC verified and is infusing. Remains at 120 cc hr. Continue to be monitored. Pt is set up for lunch. Poor po intake.
[2024-08-31 16:15] VITALS: O2SAT 96
--- NOTE | 2024-08-31 16:29 | NURSING ---
#2 unit of PRBC complete and report called to [facility]. Pt iv is dc and transport called.
== END 2024-08-31 16:30 | disposition home or self-care (01) ==
LOC: MEDOUTP 09:02 → PCUOUT 09:09 → PCU 09:14
PROVIDERS: PCP Internal Medicine; Referring Provider Internal Medicine; Visit Provider Internal Medicine
DX: D64.9 Anemia, unspecified (principal); N18.6 End stage renal disease
CPT/HCPCS: 36430

== ENCOUNTER → 2024-09-02 | Outpatient (REF) | payer OTHER, SELFPAY ==
[2024-09-02 09:54] LABS: Hematocrit 34.9 % (37-47); Hemoglobin 10.7 g/dL (12.0-15.0); Mean Corp Hgb Conc 30.7 g/dL (32-36); Mean Corpuscular Volume 91.4 fL (81-99); Mean Platelet Vol. 10.2 fl (6.2-12.0); POSITIVE MORPHOLOGY YES; Platelet Count 178 K/mm3 (150-450); RBC Distribution Width SD 72.8 fl (35.1-43.9); Red Blood Count 3.82 M/mm3 (4.2-5.4)
[2024-09-02 09:59] LABS: Scan Indicated on CBC? Y/N YES- FLAGS NOTED
[2024-09-02 10:00] LABS: ALB/GLOB Ratio 0.6 RATIO (0.9-2.4); AST(SGOT) 47 U/L (<=31); Alanine Aminotransfer ALT/SGPT 16 U/L (<=34); Albumin, Serum 2.3 g/dL (3.4-4.8); Alkaline Phosphatase 81 U/L (35-104); Anion Gap 10 (5-15); BUN 21 mg/dL (4-19); BUN/Creat Ratio 22.5 RATIO (10-20); Calcium,Total 7.8 mg/dL (7.6-11.0); Carbon Dioxide 25.9 mmol/L (21.0-32.0); Chloride 96 mmol/L (98-108); Creatinine, Serum 0.91 mg/dL (0.70-1.20); EST Glomerular Filtration Rate 71 (>60); Globulin 3.7 g/dL (2.2-4.2); Glucose 73 mg/dL (70-99); Magnesium 2.4 mg/dL (1.5-2.2); Potassium 3.7 mmol/L (3.3-5.1); Protein, Total 5.9 g/dL (5.9-8.4); Sodium Level 133 mmol/L (133-145); Total Bilirubin 0.27 mg/dL (0.00-1.30)
== END ==
LOC: OLS.SW 05:00
PROVIDERS: PCP Internal Medicine; Visit Provider Internal Medicine
DX: J81.1 Chronic pulmonary edema (principal); E43 Unspecified severe protein-calorie malnutrition; N18.6 End stage renal disease
CPT/HCPCS: 36415; 80053; 83735; 85027

== ENCOUNTER → 2024-09-09 | Outpatient (REF) | payer OTHER, SELFPAY ==
[2024-09-09 09:08] LABS: Hematocrit 31.4 % (37-47); Hemoglobin 9.4 g/dL (12.0-15.0); Mean Corp Hgb Conc 29.9 g/dL (32-36); Mean Corpuscular Volume 90.2 fL (81-99); Mean Platelet Vol. 10.1 fl (6.2-12.0); Platelet Count 183 K/mm3 (150-450); RBC Distribution Width CV 18.6 % (11.6-14.6); RBC Distribution Width SD 61.3 fl (35.1-43.9); Red Blood Count 3.48 M/mm3 (4.2-5.4); White Blood Count 3.8 K/mm3 (4.4-11.0)
[2024-09-09 09:39] LABS: ALB/GLOB Ratio 0.6 RATIO (0.9-2.4); AST(SGOT) 54 U/L (<=31); Alanine Aminotransfer ALT/SGPT 26 U/L (<=34); Albumin, Serum 2.4 g/dL (3.4-4.8); Alkaline Phosphatase 93 U/L (35-104); Anion Gap 8 (5-15); BUN 49 mg/dL (4-19); BUN/Creat Ratio 36.3 RATIO (10-20); Calcium,Total 8.8 mg/dL (7.6-11.0); Carbon Dioxide 30.2 mmol/L (21.0-32.0); Chloride 96 mmol/L (98-108); Creatinine, Serum 1.35 mg/dL (0.70-1.20); EST Glomerular Filtration Rate 44 (>60); Globulin 3.7 g/dL (2.2-4.2); Glucose 115 mg/dL (70-99); Potassium 3.1 mmol/L (3.3-5.1); Protein, Total 6.1 g/dL (5.9-8.4); Sodium Level 133 mmol/L (133-145); Total Bilirubin 0.24 mg/dL (0.00-1.30)
== END ==
LOC: OLS.SW 05:35
PROVIDERS: PCP Internal Medicine; Referring Provider Internal Medicine; Visit Provider Internal Medicine
DX: J81.1 Chronic pulmonary edema (principal); N18.6 End stage renal disease; J96.01 Acute respiratory failure with hypoxia
CPT/HCPCS: 36415; 80053; 83735; 85027

== ENCOUNTER 2024-09-15 04:22 | Emergency (ER) | payer OTHER, SELFPAY ==
[2024-09-15 04:23] VITALS: BP 169/109; PULSE 110; RESP 17; TEMP 36.7; O2SAT 94; BMI 16.5
--- NOTE | 2024-09-15 04:32 | EKG12_ITS ---
Test Reason : SOB Blood Pressure : */* mmHG Vent. Rate : 110 BPM Atrial Rate : 110 BPM P-R Int : 140 ms QRS Dur : 80 ms QT Int : 320 ms P-R-T Axes : 27 -2 29 degrees QTcB Int : 433 ms Sinus tachycardia Low voltage QRS Nonspecific ST and T wave abnormality Abnormal ECG Confirmed by WALT KENNEDY, NIDIA ([id number]), medical editor SHELDON AGUILAR ([id number]) on 09/16/2024 8:39:50 AM Referred By: Confirmed By: NIDIA GODOY MD
[2024-09-15 04:35] VITALS: PULSE 103; RESP 22
--- NOTE | 2024-09-15 04:35 | ED.VIS.DYS ---
HPI History of Present Illness Chief Complaint: Shortness of Breath Narrative Narrative: Patient is sent from custodial facility where she is DNR comfort care only, she is a dialysis patient and has a lot of medical problems including clotting disorders, peripheral arterial disease, ESRD, and a history of pulmonary edema that staff at the long term states has improved with Lasix in the past, she has been dyspneic for the last 12 to 24 hours, and the patient complains of chest pressure as well. She has been coughing no sputum production, she is orthopneic and denies any fevers or chills. No GI symptoms or recent vomiting. She is on chronic oxygen therapy at the long term, unknown how much at baseline but at the long term they have had her nasal cannula up to 5 L this past day. 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 Gross hematuria Retroperitoneal hematoma Constipation, unspecified Raynaud's syndrome without gangrene Hypo-osmolality and hyponatremia Hyperlipidemia, unspecified Hypothyroidism, unspecified Anemia, unspecified Need for assistance with personal care Other malaise Other abnormalities of gait and mobility Unsteadiness on feet Muscle weakness (generalized) Other symbolic dysfunctions Dysphagia, oropharyngeal phase Essential (primary) hypertension Activated protein C resistance Unspecified severe protein-calorie malnutrition Acute respiratory failure with hypoxia Emphysema, unspecified Peripheral vascular disease, unspecified Enterocolitis due to Clostridium difficile, not specified as recurrent Acute kidney failure, unspecified Leakage of aortic (bifurcation) graft (replacement), subsequent encounter Abdominal aortic aneurysm, ruptured, unspecified Home Medications ?Medication ?Instructions ?Recorded ?Last Taken ?Type aspirin 81 mg tablet,delayed 81 mg PO DAILY 03/11/24 07/23/24 History release (Adult Aspirin Regimen) atorvastatin 20 mg tablet 20 mg PO QHS 03/11/24 07/22/24 History metoprolol tartrate 25 mg tablet 25 mg PO BID 03/11/24 07/22/24 History thiamine HCl (vitamin B1) 100 mg 100 mg PO BID 04/11/24 07/23/24 History tablet cyclobenzaprine 5 mg tablet 5 mg PO Q8H PRN MUSCLE SPASMS 06/05/24 07/10/24 History Lactobacillus rhamnosus GG 10 1 cap PO DAILY 07/18/24 07/23/24 History billion cell capsule (Culturelle) acetaminophen 325 mg tablet 650 mg PO Q4H PRN fever 07/18/24 Unknown History aluminum-magnesium hydroxide 200 30 ml PO Q4H PRN GI DISTRESS 07/18/24 Unknown History mg-200 mg/5 mL oral suspension amlodipine 5 mg tablet 5 mg PO QHS 07/18/24 07/22/24 History docusate sodium 100 mg tablet 100 mg PO BID PRN constipation 07/18/24 Unknown History dronabinol 2.5 mg capsule (Marinol) 2.5 mg PO BID 07/18/24 07/23/24 History guaifenesin 100 mg/5 mL oral liquid 400 mg PO TID PRN cough 07/18/24 07/14/24 History levothyroxine 200 mcg tablet 200 mcg PO DAILY 07/18/24 07/23/24 History midodrine 10 mg tablet 10 mg PO DAILY PRN for SBP lower 07/18/24 Unknown History than 110 during dialysis tx ondansetron 4 mg disintegrating 4 mg PO DAILY PRN nausea and 07/18/24 Unknown History tablet vomiting oxycodone 5 mg tablet 5 mg PO Q6H PRN pain 07/18/24 07/22/24 History polyethylene glycol 3350 17 17 g PO QODAY 07/18/24 07/21/24 History gram/dose oral powder sennosides 8.6 mg-docusate sodium 1 tab-cap PO DAILY PRN constipation 07/18/24 Unknown History 50 mg tablet (Senna Plus) sertraline 25 mg tablet 25 mg PO DAILY 07/18/24 07/23/24 History vitamin B complex-vitamin C-folic 1 tab PO DAILY 07/18/24 07/23/24 History acid 0.8 mg tablet (Renal Vitamin) bisacodyl 10 mg rectal suppository 10 mg RI DAILY PRN constipation 07/31/24 Unknown History cholecalciferol (vitamin D3) 125 125 mcg PO DAILY 07/31/24 Unknown History mcg (5,000 unit) capsule glucagon HCl 1 mg solution for 1 mg IM Q20M PRN hypoglycemia 07/31/24 Unknown History injection (Glucagon (HCl) Emergency Kit) ascorbic acid (vitamin C) 500 mg 500 mg PO DAILY #0 tabs 08/13/24 Unknown Rx tablet ferrous sulfate 325 mg (65 mg 325 mg PO QODAY #30 tabs 08/13/24 Unknown Rx iron) tablet acetaminophen 650 mg rectal 650 mg RI Q4H PRN fever or pain 08/14/24 Unknown History suppository dextrose 40 % oral gel (Glucose 10 g PO Q15M PRN hypoglycemia 08/14/24 Unknown History Gel) mirtazapine 15 mg tablet 15 mg PO QHS 08/14/24 Unknown History sodium phosphates 19 gram-7 118 ml RI DAILY PRN constipation 08/14/24 Unknown History gram/118 mL enema (Enema) IV with Additives 50 mls/hr GT 08/17/24 Unknown Rx pantoprazole 40 mg tablet,delayed 40 mg PO DAILY #0 tabs 08/17/24 Unknown Rx release cetirizine 10 mg tablet (24Hour 10 mg PO DAILY 09/15/24 Unknown History Allergy) furosemide 80 mg tablet 80 mg PO .once PRN edema or 09/15/24 Unknown Rx increased dyspnea #1 TAB potassium 20 mg chewable tablet 10 mg PO DAILY 09/15/24 Unknown History Allergy/AdvReac Type Severity Reaction Status Date / Time iodine Allergy Intermediate Nausea Verified 08/14/24 07:32 shellfish derived Allergy Intermediate Nausea Verified 08/14/24 07:32 Social History Smoking Status: Former smoker Tobacco: How many years used: 40 alcohol intake: former substance use type: does not use ROS ROS ED Constitutional Constitutional ED: Reports fatigue; Denies chills or fever(s) Eyes Eyes: Denies change in vision or diplopia ENT ENT ED: Denies rhinorrhea or sore throat Cardiovascular Cardiovascular: Reports chest pain and orthopnea; Denies palpitations Respiratory/Chest Respiratory/Chest: Reports cough, dyspnea and orthopnea; Denies sputum Gastrointestinal Gastrointestinal: Denies abdominal pain, diarrhea, nausea or vomiting Musculoskeletal Musculoskeletal: Denies back pain or neck pain Integumentary Denies abscess or rash Neurologic Neurologic: Denies headache(s), paresthesias or weakness Psychiatric Psychiatric: Denies suicidal thoughts EXAM Physical Exam Const Vital Signs: 09/15/24 04:23 09/15/24 04:35 09/15/24 04:35 Temperature 98.0 F Temperature Source Temporal Pulse Rate 110 H 103 H Respiratory Rate 17 22 H Blood Pressure 169/109 H Blood Pressure Mean 129 Pulse Ox 94 Oxygen Delivery Method Non-Rebreather Non-Rebreather Oxygen Flow Rate (L/min) 10 Fraction of Inspired Oxygen (FIO2) 10 09/15/24 05:23 09/15/24 05:29 09/15/24 06:00 Temperature 98.0 F 98.3 F Temperature Source Temporal Temporal Pulse Rate 98 96 98 Respiratory Rate 24 H 22 H 20 H Blood Pressure 140/75 H 136/75 H 140/78 H Blood Pressure Mean 96 95 98 Pulse Ox 100 100 97 Oxygen Delivery Method Non-Rebreather Non-Rebreather Nasal Cannula Oxygen Flow Rate (L/min) 10 5 Fraction of Inspired Oxygen (FIO2) 09/15/24 06:00 09/15/24 07:00 09/15/24 07:00 Temperature 98.6 F Temperature Source Temporal Pulse Rate 100 100 Respiratory Rate 20 H Blood Pressure 140/76 H 145/85 H Blood Pressure Mean 97 105 Pulse Ox 96 Oxygen Delivery Method Nasal Cannula Oxygen Flow Rate (L/min) 4 Fraction of Inspired Oxygen (FIO2) Positive well nourished, well developed and cachectic General Appearance ED: well developed, cachectic and NAD Nutritional Appearance: cachectic HEENT Reports moist mucous membranes normocephalic and atraumatic Eyes PERRL and EOMs intact bilaterally Neck full ROM and supple Chest Wall Chest Narrative: Dialysis tunneled catheter right upper chest site benign and nontender Resp Resp Narrative: Tachypnea, severely diminished breath sounds throughout, but symmetrically. Some transmitted upper airway sounds but I hear no crackles, rales, or significant wheezing. Cardio regular rate, regular rhythm and no murmurs Rate: tachycardic GI non-tender and non-distended Auscultation: normoactive bowel sounds Palpation: soft Back/Spine no CVA tenderness General Back: other FROM Extremity normal to inspection General Extremety ED: Yes edema; Negative for pulses abnormal or tenderness General Extremity: edema bilateral lower extremity Details: mild; Negative for pulses abnormal Neuro oriented x3, CN's II-XII intact bilaterally and no sensory deficits noted Sensorium / Orientation: awake and alert Motor Exam: general weakness Psych mental status grossly normal Skin no rashes or lesions noted and no wounds MDM MDM MDM Narrative Medical decision making narrative: Patient was given an albuterol treatment, she had 1 earlier at the long term and she said it helped a little. In the meantime EKG shows no acute injury pattern, 1 view chest x-ray on my interpretation shows pulmonary edema and probable bilateral small effusions. She was also given Lasix 80 mg, she does not have Lasix on her medication list that she takes daily. As result she did urinate into her diaper, and on reevaluation she feels much better and is breathing normally except for when she coughs. Chest discomfort is resolved. Her initial troponin is elevated probably indicative of her chronic kidney disease and cardiac strain, at least this is consistent with her pulmonary edema. Given her DNRCC status I do not think she needs to be admitted because of the chest pain and abnormal troponin, but I would like to get her dialyzed soon to help with the pulmonary edema. Unfortunately it is Monday morning and we do not have appropriate staff today in order to have hemodialysis performed at this hospital. Monitored the patient for a while and we were able to titrate her oxygen down to a 5 L nasal cannula in the mid 90 and no distress. Blood pressure 144 systolic. Patient is doing well. I discussed with nephrology Dr. Irizarry, who agrees it would be reasonable to send her back to the long term, and she will be dialyzed on first shift Monday. I will have staff contact nurses at the long term and discuss her oxygen status, the possibility of a prescription for either an IV or an oral dose of Lasix if she should need it later, and reasons to send her back to the ER or preferably a hospital that has dialysis capability on Monday if she should need to go to the ER before Monday. History & Record Review Discussion w/independent historian: Patient Additional record(s) reviewed:: Prior outpatient record (echo 08/20 EF 40%) Lab Data Attestation: I reviewed the patient's lab results. Labs: Laboratory Results - last 24 hr 09/15/24 04:45 WBC 9.3 RBC 3.02 L Hgb 8.3 L Hct 27.5 L MCV 91.1 MCH 27.5 MCHC 30.2 L RDW Std Deviation 62.7 H RDW Coeff of Monika 19.0 H Plt Count 198 MPV 10.0 Immature Gran % (Auto) 1.100 H Neut % (Auto) 84.1 H Lymph % (Auto) 6.9 L [place] % (Auto) 6.1 Eos % (Auto) 1.5 Baso % (Auto) 0.3 Absolute Neuts (auto) 7.8 H Absolute Lymphs (auto) 0.64 L Nucleated RBC % 0 Sodium 133 Potassium 4.3 Chloride 96 L Carbon Dioxide 27.3 Anion Gap 10 BUN 40 H Creatinine 1.14 Estim Creat Clear Calc 44.59 L Est GFR (MDRD) Non-Af 54 L BUN/Creatinine Ratio 34.6 H Glucose 103 H Calcium 9.1 Troponin T High Sens 256 H* D Radiography Diagnostic Testing: Clinical Impression(s) from Imaging Studies Chest X-Ray 09/15/24 04:50 IMPRESSION: Interval development of significant diffuse pulmonary vascular congestion with [id number] bilateral pleural effusions. Underlying pneumonia to be ruled out. Follow-up until resolution is recommended. Reading Location: [facility] Rhythm Strip Rhythm Strip: Sinus Tach Rate: 110 Ectopy: None EKG Initial EKG: Attestation: I personally reviewed and interpreted this EKG as follows: Interpretation: No Acute Injury Pattern, Sinus Tachycardia and Non-Specific ST Changes Management Discussion w/another healthcare provider: [employer] (nephrology Dr. Irizarry) Discharge Plan Triage Chief Complaint: Shortness of Breath ED Provider: Constantin Jain Dx/Rx/DC Orders Clinical Impression: Pulmonary edema, ESRD on hemodialysis, Chest pain Prescriptions: New furosemide 80 mg tablet 80 mg PO .once PRN (Reason: edema or increased dyspnea) Qty: 1 0RF No Action cyclobenzaprine 5 mg tablet 5 mg PO Q8H PRN (Reason: MUSCLE SPASMS) acetaminophen 325 mg tablet 650 mg PO Q4H PRN (Reason: fever) guaifenesin 100 mg/5 mL liquid 400 mg PO TID PRN (Reason: cough) dronabinol [Marinol] 2.5 mg capsule 2.5 mg PO BID Rx Instructions: administer before lunch and evening meal/dinner sertraline 25 mg tablet 25 mg PO DAILY Renal Vitamin 0.8 mg tablet 1 tab PO DAILY polyethylene glycol 3350 17 gram/dose powder 17 g PO QODAY Rx Instructions: EVERY OTHER DAY AT BED TIME ondansetron 4 mg tablet,disintegrating 4 mg PO DAILY PRN (Reason: nausea and vomiting) docusate sodium 100 mg tablet 100 mg PO BID PRN (Reason: constipation) midodrine 10 mg tablet 10 mg PO DAILY PRN (Reason: for SBP lower than 110 during dialysis tx) Rx Instructions: for SBP lower than 110 during dialysis tx acetaminophen 650 mg suppository 650 mg RI Q4H PRN (Reason: fever or pain) Enema 19-7 gram/118 mL enema 118 ml RI DAILY PRN (Reason: constipation) Rx Instructions: NEEDED FOR CONSTIPATION FOR 2 EPISODES IF DULCOLAX SUPP INEFFECTIVE. CALL PHYSICIAN IF NO BM X4 DAYS dextrose [Glucose Gel] 40 % gel 10 g PO Q15M PRN (Reason: hypoglycemia) Rx Instructions: until symptoms of low blood sugar are controlled mirtazapine 15 mg tablet 15 mg PO QHS pantoprazole 40 mg Tablet,Delayed Release (Dr/Ec) 40 mg PO DAILY Qty: 0 0RF IV with Additives Jevity 1.5 1000 ML 50 mls/hr GT Hold for bowel cramps for 1-2 hour Ordered By: Nikolas Magaña MD Last Taken: Unknown potassium 20 mg tablet,chewable 10 mg PO DAILY Patient Comments: until 09/20 cetirizine [24Hour Allergy] 10 mg tablet 10 mg PO DAILY Patient Comments: until 09/20 aspirin [Adult Aspirin Regimen] 81 mg tablet,delayed release (DR/EC) 81 mg PO DAILY Patient Comments: HOLD UNTIL 08/20/24 atorvastatin 20 mg tablet 20 mg PO QHS metoprolol tartrate 25 mg tablet 25 mg PO BID oxycodone 5 mg tablet 5 mg PO Q6H PRN (Reason: pain) thiamine HCl (vitamin B1) 100 mg tablet 100 mg PO BID amlodipine 5 mg tablet 5 mg PO QHS levothyroxine 200 mcg tablet 200 mcg PO DAILY sennosides-docusate sodium [Senna Plus] 8.6-50 mg tablet 1 tab-cap PO DAILY PRN (Reason: constipation) Culturelle 10 billion cell capsule 1 cap PO DAILY aluminum-magnesium hydroxide 200-200 mg/5 mL suspension 30 ml PO Q4H PRN (Reason: GI DISTRESS) bisacodyl 10 mg suppository 10 mg RI DAILY PRN (Reason: constipation) glucagon HCl [Glucagon (HCl) Emergency Kit] 1 mg recon soln 1 mg IM Q20M PRN (Reason: hypoglycemia) Rx Instructions: until target blood sugar attained cholecalciferol (vitamin D3) 125 mcg (5,000 unit) capsule 125 mcg PO DAILY ascorbic acid (vitamin C) 500 mg Tablet 500 mg PO DAILY Qty: 0 0RF ferrous sulfate 325 mg (65 mg iron) tablet 325 mg PO QODAY Qty: 30 2RF Primary Care Provider: Millie Massey Referrals: Millie Massey MD [Primary Care Provider] - Oswaldo Leon MD [Med Staff - Consulting] - Activity Restrictions/Additional Instructions: Received Lasix 80 mg in the ED, urinated several times, feeling much better, on a nasal cannula, resolution of chest discomfort. Pulmonary edema on x-ray, needs dialysis, but Lasix should temporize until Monday morning. Another dose prescribed in case she needs it later. Be aware that we do not have the capability of dialyzing patients at [facility] until Monday after 7 AM 09/16/2024. Print Language: Uzbek Disposition Disposition: Home, Self Care
[2024-09-15] MEDS: Albuterol 2.5 MG/3 ML VIAL.NEB. INHALATION (04:36)
[2024-09-15] MEDS: Furosemide 100 MG/10 ML Vial 80 MG IV (04:39)
--- NOTE | 2024-09-15 04:50 | RAD_ITS ---
PROCEDURE: CHEST 1 VIEW (PORTABLE) 09/15/2024 REASON FOR EXAM: SOB, CP TECHNIQUE: Frontal view of the chest. COMPARISON: Chest x-ray dated 08/15/2024. FINDINGS: The cardiac silhouette is enlarged. There has been interval development of diffuse pulmonary vascular congestion. There are large bilateral pleural effusions. These findings are significantly worsened when compared to prior examination. A right IJ dialysis catheter remains. Underlying pneumonia is a possibility. No pneumothorax. RAD/Chest 1 View (Portable) IMPRESSION: Interval development of significant diffuse pulmonary vascular congestion with [id number] bilateral pleural effusions. Underlying pneumonia to be ruled out. Follow-up until resolution is recommende dGanesh Reading Location: [id number]
[2024-09-15 04:54] LABS: Absolute Lymphocyte Count 0.64 X10^3/uL (0.83-4.51); Absolute Neutrophil Count 7.8 X10^3/uL (2.0-7.7); Basophil# 0.03 X10^3/uL; Basophil% 0.3 % (0-1); Eosinophil# 0.14 X10^3/uL; Eosinophils% 1.5 % (0-5); Hematocrit 27.5 % (37-47); Hemoglobin 8.3 g/dL (12.0-15.0); Lymphocyte # 0.64 X10^3/ul (0.83-4.51); Lymphocyte % 6.9 % (19-41); Mean Corp Hgb Conc 30.2 g/dL (32-36); Mean Corpuscular Hgb 27.5 pg (27.0-32.0); Mean Corpuscular Volume 91.1 fL (81-99); Monocyte# 0.57 X10^3/uL; Monocyte% 6.1 % (0-10); NRBC Flagged by Analyzer 0 % (0-5); Neutrophil # 7.83 X10^3/uL (2.7-7.7); Neutrophil % 84.1 % (47-70); POSITIVE COUNT YES; Platelet Count 198 K/mm3 (150-450); RBC Distribution Width SD 62.7 fl (35.1-43.9); Red Blood Count 3.02 M/mm3 (4.2-5.4); White Blood Count 9.3 K/mm3 (4.4-11.0)
[2024-09-15 05:16] LABS: Anion Gap 10 (5-15); BUN 40 mg/dL (4-19); BUN/Creat Ratio 34.6 RATIO (10-20); Calcium,Total 9.1 mg/dL (7.6-11.0); Carbon Dioxide 27.3 mmol/L (21.0-32.0); Chloride 96 mmol/L (98-108); Creatinine, Serum 1.14 mg/dL (0.70-1.20); EST Glomerular Filtration Rate 54 (>60); Estimated Creatinine Clearance 44.59 ml/min (50-250); Glucose 103 mg/dL (70-99); Potassium 4.3 mmol/L (3.3-5.1); Sodium Level 133 mmol/L (133-145); Troponin T High Sensitivity 256 ng/L (<=14)
[2024-09-15 05:23] VITALS: BP 140/75; PULSE 98; RESP 24; O2SAT 100
[2024-09-15 05:29] VITALS: BP 136/75; PULSE 96; RESP 22; TEMP 36.7; O2SAT 100
[2024-09-15 06:00] VITALS: BP 140/76; BP 140/78; PULSE 98; RESP 20; TEMP 36.8; O2SAT 97
[2024-09-15 07:00] VITALS: BP 145/85; PULSE 100; RESP 20; TEMP 37; O2SAT 96
--- NOTE | 2024-09-15 08:00 | ED.RN ---
report called to Justine at [facility]. No further question
[2024-09-15 08:18] LABS: Troponin T High Sens 2 HR 273 ng/L (<=14)
== END 2024-09-15 08:19 | disposition home or self-care (01) ==
PROVIDERS: Emergency Provider Emergency Medicine; PCP Internal Medicine; Visit Provider Emergency Medicine
DX: J81.1 Chronic pulmonary edema (principal); I12.0 Hypertensive chronic kidney disease with stage 5 chronic kidney disease or end stage renal disease; N18.6 End stage renal disease; J43.9 Emphysema, unspecified; R07.9 Chest pain, unspecified; D68.51 Activated protein C resistance; E78.5 Hyperlipidemia, unspecified; E03.9 Hypothyroidism, unspecified; Z99.2 Dependence on renal dialysis; Z79.82 Long term (current) use of aspirin; Z79.890 Hormone replacement therapy; Z79.899 Other long term (current) drug therapy; Z66 Do not resuscitate; Z87.891 Personal history of nicotine dependence
CPT/HCPCS: 36415; 71045; 80048; 84484; 85025; 93005; 94640; 96374; 99285; A4216; J1940

== ENCOUNTER → 2024-09-16 | Outpatient (REF) | payer OTHER, SELFPAY ==
[2024-09-16 09:26] LABS: Hematocrit 29.2 % (37-47); Hemoglobin 8.4 g/dL (12.0-15.0); Mean Corp Hgb Conc 28.8 g/dL (32-36); Mean Corpuscular Hgb 26.8 pg (27.0-32.0); Mean Corpuscular Volume 93.3 fL (81-99); Mean Platelet Vol. 10.4 fl (6.2-12.0); POSITIVE MORPHOLOGY YES; Platelet Count 180 K/mm3 (150-450); RBC Distribution Width CV 19.6 % (11.6-14.6); RBC Distribution Width SD 65.9 fl (35.1-43.9); Red Blood Count 3.13 M/mm3 (4.2-5.4); White Blood Count 7.5 K/mm3 (4.4-11.0)
[2024-09-16 09:59] LABS: Scan Indicated on CBC? Y/N YES- FLAGS NOTED
[2024-09-16 10:46] LABS: ALB/GLOB Ratio 0.6 RATIO (0.9-2.4); AST(SGOT) 130 U/L (<=31); Alanine Aminotransfer ALT/SGPT 93 U/L (<=34); Albumin, Serum 2.8 g/dL (3.4-4.8); Alkaline Phosphatase 126 U/L (35-104); Anion Gap 12 (5-15); BUN 53 mg/dL (4-19); BUN/Creat Ratio 36.5 RATIO (10-20); Calcium,Total 9.8 mg/dL (7.6-11.0); Carbon Dioxide 24.4 mmol/L (21.0-32.0); Chloride 94 mmol/L (98-108); Creatinine, Serum 1.46 mg/dL (0.70-1.20); EST Glomerular Filtration Rate 40 (>60); Glucose 85 mg/dL (70-99); Potassium 4.8 mmol/L (3.3-5.1); Protein, Total 7.7 g/dL (5.9-8.4); Sodium Level 130 mmol/L (133-145); Total Bilirubin 0.42 mg/dL (0.00-1.30)
== END ==
LOC: OLS.SW 07:45
PROVIDERS: PCP Internal Medicine; Visit Provider Internal Medicine
DX: I50.9 Heart failure, unspecified (principal); J81.1 Chronic pulmonary edema; J96.01 Acute respiratory failure with hypoxia; I73.9 Peripheral vascular disease, unspecified
CPT/HCPCS: 36415; 80053; 85027

== ENCOUNTER → 2024-09-18 | Outpatient (REF) | payer OTHER, SELFPAY ==
[2024-09-18 08:52] LABS: ALB/GLOB Ratio 0.7 RATIO (0.9-2.4); AST(SGOT) 76 U/L (<=31); Alanine Aminotransfer ALT/SGPT 63 U/L (<=34); Albumin, Serum 2.9 g/dL (3.4-4.8); Alkaline Phosphatase 117 U/L (35-104); Anion Gap 11 (5-15); BUN 49 mg/dL (4-19); BUN/Creat Ratio 39.3 RATIO (10-20); Calcium,Total 9.4 mg/dL (7.6-11.0); Carbon Dioxide 28.1 mmol/L (21.0-32.0); Chloride 94 mmol/L (98-108); Creatinine, Serum 1.24 mg/dL (0.70-1.20); EST Glomerular Filtration Rate 49 (>60); Globulin 4.4 g/dL (2.2-4.2); Glucose 167 mg/dL (70-99); Potassium 5.1 mmol/L (3.3-5.1); Protein, Total 7.3 g/dL (5.9-8.4); Sodium Level 133 mmol/L (133-145); Total Bilirubin 0.31 mg/dL (0.00-1.30)
== END ==
LOC: OLS.SW 05:00
PROVIDERS: PCP Internal Medicine; Visit Provider Internal Medicine
DX: N18.6 End stage renal disease (principal); I50.9 Heart failure, unspecified; J81.1 Chronic pulmonary edema; I73.9 Peripheral vascular disease, unspecified; J96.01 Acute respiratory failure with hypoxia
CPT/HCPCS: 36415; 80053

== ENCOUNTER → 2024-09-23 | Outpatient (REF) | payer OTHER, SELFPAY ==
[2024-09-23 09:56] LABS: Anion Gap 13 (5-15); BUN 56 mg/dL (4-19); BUN/Creat Ratio 39.5 RATIO (10-20); Calcium,Total 9.4 mg/dL (7.6-11.0); Carbon Dioxide 23.4 mmol/L (21.0-32.0); Chloride 94 mmol/L (98-108); Creatinine, Serum 1.42 mg/dL (0.70-1.20); EST Glomerular Filtration Rate 42 (>60); Glucose 98 mg/dL (70-99); Potassium 5.1 mmol/L (3.3-5.1); Sodium Level 131 mmol/L (133-145)
== END ==
LOC: OLS.SW 05:00
PROVIDERS: PCP Internal Medicine; Visit Provider Internal Medicine
DX: J81.1 Chronic pulmonary edema (principal); N18.6 End stage renal disease; J96.01 Acute respiratory failure with hypoxia
CPT/HCPCS: 36415; 80048

== ENCOUNTER → 2024-10-30 05:45 | Outpatient (REF) | payer OTHER, SELFPAY ==
[2024-10-30 07:14] LABS: Hematocrit 34.9 % (37-47); Hemoglobin 10.6 g/dL (12.0-15.0); Mean Corp Hgb Conc 30.4 g/dL (32-36); Mean Corpuscular Hgb 26.8 pg (27.0-32.0); Mean Corpuscular Volume 88.4 fL (81-99); Mean Platelet Vol. 11.2 fl (6.2-12.0); Platelet Count 172 K/mm3 (150-450); RBC Distribution Width SD 55.4 fl (35.1-43.9); Red Blood Count 3.95 M/mm3 (4.2-5.4); White Blood Count 5.7 K/mm3 (4.4-11.0)
[2024-10-30 07:24] LABS: ALB/GLOB Ratio 0.8 RATIO (0.9-2.4); AST(SGOT) 196 U/L (<=31); Alanine Aminotransfer ALT/SGPT 173 U/L (<=34); Albumin, Serum 2.9 g/dL (3.4-4.8); Alkaline Phosphatase 172 U/L (35-104); Anion Gap 11 (5-15); BUN 70 mg/dL (4-19); BUN/Creat Ratio 44.3 RATIO (10-20); Calcium,Total 10.9 mg/dL (7.6-11.0); Chloride 93 mmol/L (98-108); Creatinine, Serum 1.57 mg/dL (0.70-1.20); EST Glomerular Filtration Rate 37 (>60); Globulin 3.8 g/dL (2.2-4.2); Glucose 109 mg/dL (70-99); Potassium 3.3 mmol/L (3.3-5.1); Protein, Total 6.7 g/dL (5.9-8.4); Sodium Level 133 mmol/L (133-145); Total Bilirubin 0.26 mg/dL (0.00-1.30)
== END ==
LOC: OLS.SW 05:45
PROVIDERS: PCP Internal Medicine; Visit Provider Internal Medicine
DX: N18.6 End stage renal disease (principal); J81.1 Chronic pulmonary edema; J96.01 Acute respiratory failure with hypoxia; E43 Unspecified severe protein-calorie malnutrition
CPT/HCPCS: 36415; 80053; 85027

== ENCOUNTER → 2024-11-04 | Outpatient (REF) | payer OTHER, SELFPAY ==
--- OUTSIDE RECORDS SUMMARY | 2024-11-04 04:20 | XMS RPT_ITS | CCD ---
Author Organization [facility] Care Team Providers Care Passenger Agent Name Role Phone Bambi Huynh Unavailable Bambi Huynh Unavailable Unavail able Bambi Huynh Unavailable Unavail able Bambi Huynh Primary Care Provider Bambi Huynh Primary Care Provider BAMBI HUYNH Primary Care Unavail able REBECA KAUR Attending Unavail able Bambi Huynh Primary Care Provider Bambi Huynh Unavailable Bambi Huynh MD Primary Care Provide r Bambi Huynh MD Unavailable [phone] Ying Quispe DO Primary Care Provider [phone] Ying Quispe DO Primary Care Provider Ying Quispe DO Primary Care Provider Ying Quispe DO Unavailable Bambi Huynh MD Primary Care Provide r Makenzie Bajwa CNP Primary Care Provider Ying Quispe DO Unavailable Jose MEJIA, Codie Alfred Unavailable Unav ailable Ying Quispe DO Unavailable Lita Gu MD Unavailable PHYSICIAN, PCP UNKNOWN Primary Care Unavailab LUCRECIA ForteETH E~[phone] Attend ing Unavailable GRESSER, BRONWYN N Referring Unavailable PHYSICIAN, PCP UNKNOWN Primary Care Unavailab le GRESSER, BRONWYN N Attending Unavailable PHYSICIAN, PCP UNKNOWN Primary Care Unavailab le ALLEN FRANK, FRANK~[phone] [facility] Attending Unavailable PHYSICIAN, PCP UNKNOWN Primary Care Unavailab le ALLEN FRANK, FRANK~[phone] [facility] Attending Unavailable GRESSER, BRONWYN N Attending Unavailable PHYSICIAN, PCP UNKNOWN Primary Care Unavailab le GRESSER, BRONWYN N Attending Unavailable PHYSICIAN, PCP UNKNOWN Primary Care Unavailab le GRESSER, BRONWYN N Referring Unavailable GRESSER, BRONWYN N Attending Unavailable PHYSICIAN, PCP UNKNOWN Primary Care Unavailab le PHYSICIAN, PCP UNKNOWN Primary Care Unavailab le GRESSER, BRONWYN N Referring Unavailable GRESSER, BRONWYN N Attending Unavailable PHYSICIAN, PCP UNKNOWN Primary Care Unavailab le GRESSER, BRONWYN N Referring Unavailable GRESSER, BRONWYN N Attending Unavailable GRESSER, BRONWYN N Attending Unavailable PHYSICIAN, PCP UNKNOWN Primary Care Unavailab le GRESSER, BRONWYN N Referring Unavailable PHYSICIAN, PCP UNKNOWN Primary Care Unavailab LUCRECIA Grijalva Attending Unavailable LUCRECIA MORGAN Referring Unavailable GRESSER, BRONWYN N Attending Unavailable PHYSICIAN, PCP UNKNOWN Primary Care Unavailab le GRESSER, BRONWYN N Referring Unavailable GRESSER, BRONWYN N Attending Unavailable PHYSICIAN, PCP UNKNOWN Primary Care Unavailab le PHYSICIAN, PCP UNKNOWN Primary Care Unavailab le GRESSER, BRONWYN N Referring Unavailable GRESSER, BRONWYN N Attending Unavailable PHYSICIAN, PCP UNKNOWN Primary Care Unavailab le BRANDT CAGE~[id number] RAGHAVENDRA Attending Unavailable BRANDT CAGE~[id number] RAGHAVENDRA Referring Unavailable PHYSICIAN, PCP UNKNOWN Primary Care Unavailab le GRESSER, BRONWYN N Referring Unavailable GRESSER, BRONWYN N Attending Unavailable IZABELLA CARRILLO Attending Unavailable YING QUISPE Primary Care Unavailable YING QUISPE Referring Unavailable YING QUISPE Attending Unavailable YING QUISPE Primary Care Unavailable YING QUISPE Primary Care Unavailable YING QUISPE Admitting Unavailable YING QUISPE Referring Unavailable Kamadana MD, Yisel Unavailable BRITTANEYYING Referring Unavailable YING QUISPE Primary Care Unavailable PHYSICIANS, [facility] Consulting Unav ailable BRITTANEYYING Primary Care Unavailable CHIOMA OTTO Attending IZABELLA Chance Referring Unavailable DEN WRIGHT I. Admitting Unavailable PHYSICIANS, [facility] Consulting Un available JARON GABRIEL Consulting Homer QUISPEYING Primary Care Unavailable PUGAREDENILSON Attending Unavailable PUGAR, EDENILSON LANTIGUA Referring Unavailable PUGAR, EDENILSON LANTIGUA Admitting Unavailable YING QUISPE Primary Care Unavailable PUGAR, EDENILSON LANTIGUA Admitting Unavailable PUGAR, EDENILSON LANTIGUA Attending Unavailable YING QUISPE Primary Care Unavailable JUDITH SANTANA Admitting Unavailab RANDY Rose Referring Unavail able BRENDA MILES Attending Unavailable PUGAR, EDENILSON ARTHURAN Consulting Unavailable GREGORY LAGUERRE Consulting Unavailable YING QUISPE Primary Care Unavailable GLENN JC Admitting Unavailable GLENN JC Attending Unavailable PUGAR, EDENILSON RHINA Consulting Unavailable PUGAR, EDENILSON RHINA Referring Unavailable GREGORY LAGUERRE Consulting Unavailable KELSEA FLORES Consulting Unavaila ble [facility] Consul ting Unavailable PHYSICIANS, [facility] Consulting Unav ailable LATOSHA PARISI Consulting UnavailSRI Franks Consulting Unavailable RAY NOEL Consulting Unavaila ble YING QUISPE Primary Care Unavailable BRITTANIE, LITA Referring UnavailMICHELLE Colindres Attending Unavailable BRITTANIE, LITA Admitting Unavailabl e BRITTANEY, YING DARLINGE Primary Care Unavailable BRITTANIE, LITA Admitting UnavailMICHELLE Colindres Attending Unavailable BRITTANIE, LITA Referring UnavailSARATH Todd Attending UnavailSARATH Todd Referring Unavailabl e BRITTANEY, YING DARLINGE Primary Care Unavailable ALAN ESTRELLARIELLA Attending Unavailable SAMEER ABIGAIL Referring Unavailable BRITTANEY, YING SWEENEY Primary Care Unavailable SARATH REY Attending Unavailabl SARATH Dasilva Referring Unavailabl e BRITTANEY, YING ZAHRA Primary Care Unavailable DOMKA, ABIGAIL Admitting Unavailable ALAN ESTRELLARIELLA Attending Unavailable TYLOR KRUGER Referring Unavailab le BRITTANEY, YING ZAHRA Primary Care Unavailable TYLOR KRUGER Attending Unavailab le KRUGER, TYLOR ERYNOLDS Referring Unavailab le BRITTANEY, YING ZAHRA Primary Care Unavailable TYLOR KRUGER Attending Unavailab le KRUGER, TYLOR REYNOLDS Referring Unavailab le BRITTANEY, YING ZARHA Primary Care Unavailable JUSTINE HODGES Attending Unavailable BRITTANEY, YING ZAHRA Primary Care Unavailable BRITTANIE, LITA Admitting Unavailabl e BRITTANIE, LITA Referring Unavailabl e BRITTANIE, LITA Admitting Unavailabl e BRITTANEY, YING ZAHRA Primary Care Unavailable BRITTANIE, LITA Referring Unavailabl e MICHELLE LITTLEJOHN Attending Unavailable BRITTANIE, LITA Admitting Unavailabl e BRITTANEY, YING ZAHRA Primary Care Unavailable MICHELLE LITTLEJOHN Attending Unavailable BRITTANIE, LITA Referring Unavailabl e BRITTANIE, LITA Admitting Unavailabl e BRITTANEY, YING ZAHRA Primary Care Unavailable MICHELLE LITTLEJOHN Attending Unavailable BRITTANIE, LITA Referring Unavailabl e BRITTANIE, LITA Admitting Unavailabl e BRITTANEY, YING ZAHRA Primary Care Unavailable BRITTANIE, LITA Referring Unavailabl e BRITTANEY, YING ZAHRA Primary Care Unavailable BRITTANIE, LITA Admitting Unavailabl e BRITTANIE, LITA Referring Unavailabl e BRITTANEY, YING ZAHRA Primary Care Unavailable BRITTANIE, LITA Admitting Unavailabl e MICHELLE LITTLEJOHN Attending Unavailable BRITTANIE, LITA Referring Unavailabl e BRITTANIE, LITA Admitting Unavailabl e BRITTANEY, YING ZAHRA Primary Care Unavailable BRITTANIE, LITA Referring Unavailabl e MICHELLE LITTLEJOHN Attending Unavailable BRITTANIE, LITA Admitting Unavailabl e JUSTINE HODGES Attending Unavailable BRITTANEY, YING ZAHRA Primary Care Unavailable BRITTANIE, LITA Referring Unavailabl e ADILENE BRYAN Attending Unavailable BRITTANEY, YING ZAHRA Primary Care Unavailable BRITTANIE, LITA Admitting Unavailabl e BRITTANIE, LITA Referring Unavailabl e BRITTANEY, YING ZAHRA Primary Care Unavailable BRITTANIE, LITA Admitting Unavailabl e BRITTANIE, LITA Referring Unavailabl e MICHELLE LITTLEJOHN Attending Unavailable ADILENE BRYAN Attending Unavailable BRITTANEY, YING ZAHRA Primary Care Unavailable BRITTANIE, LITA Referring Unavailabl e BRITTANIE, LITA Admitting Unavailabl e LAVERN TAYLOR, YFN Attending Unavailable LAVERN JRGanesh, YFN Referring Unavailable BRITTANEY, YING ZAHRA Primary Care Unavailable LAVERN TAYLOR, YFN Attending Unavailable LAVERN TAYLOR, YFN Referring Unavailable BRITTANEY, YING ZAHRA Primary Care Unavailable SARATH REY Attending Unavailabl SARATH Dasilva Referring Unavailabl e BRITTANEY, YING ZAHRA Primary Care Unavailable THERESA BOYKIN Attending Unavailable THERESA BOYKIN Referring Unavailable BRITTANEY, YING ZAHRA Primary Care Unavailable BRITTANEY, YING ZAHRA Primary Care Unavailable BRITTANIE, LITA Attending Unavailabl e BRITTANIE, LITA Referring Unavailabl e Jose RN, Codie R Unavailable Unav ailable Jose RN, Codie R Unavailable Unav ailable SARATH REY Attending Unavailabl e BRITTANEY, YING ZAHRA Primary Care Unavailable BRITTANEY, YING ZAHRA Primary Care Unavailable BRITTANEY, YING ZAHRA Attending Unavailable TYLOR KRUGER Attending Unavailab le BRITTANEY, YING ZAHRA Primary Care Unavailable CATE CONTRERAS Attending Unavailable BRITTANEY, YING ZAHRA Primary Care Unavailable FELICITY OLSON Attending Unavailable BRITTANEY, YING ZAHRA Primary Care Unavailable EDENILSON GUERRA Attending Unavailable BRITTANEY, YING ZAHRA Primary Care Unavailable THERESA BOYKIN Attending Unavailable LAVERN TAYLOR, YFN Admitting Unavailable LAVERN TAYLOR, YFN Referring Unavailable BRITTANEY, YING ZAHRA Primary Care Unavailable BRITTANEY, YING ZAHRA Primary Care Unavailable CATE CONTRERAS Attending Unavailable BRITTANEY, YING ZAHRA Primary Care Unavailable SARATH REY Attending Unavailabl e Jennifer KENNEDY, Dr. Long Primary Care Provider [phone] Ethan Mayorga Attending Provider Unavailable Ethan Mayorga Referring Provider Unavailable Melissa KENNEDY, Dr. Adams Attending Provider Melissa KENNEDY, Dr. Adams Referring Provider Jennifer KENNEDY, Dr. Long Referring Provider Magdiel KENNEDY, Dr. Jeffery Sandy Attending Provider Bryson KENNEDY, Dr. Pinto Attending Provider Unavaila iona BRIGGS, Chioma Attending Provider Redd OWEN-C, Adilene Attending Provider [phone] Catarino KENNEDY, Dr. Chung Attending Provider Catarino KENNEDY, Dr. Chung Emergency Provider Dr. Sadia Phoenix DO Emergency Provider [phone] Glenis GARCIA, Dr. Whaley Admit Provider Dr. Judd Galvin DO Other Provider Melissa KENNEDY, Dr. Adams Other Provider Alyce KENNEDY, Dr. Mar Palm Attending Provider Dr. Remedios Kessler DO Other Provider Dr. Judd Galvin DO Attending Provider Dr. Nick Gallegos DO Attending Provider Alyce KENNEDY, Dr. Mar Palm Referring Provider Dr. Remedios Kessler DO Attending Provider Alyce KENNEDY, Dr. Mar Palm Other Provider Bennie KENNEDY, Dr. Zamora Referring Provider [phone] Bennie KENNEDY, Dr. Zamora Emergency Provider [phone] Kvng Watkins DO Admit Provider [phone] Dr. Kvng Watkins DO Other Provider [phone] Gómez KENNEDY, Dr. Connor Attending Provider Dr. Kvng Watkins DO Attending Provider Dudley KENNEDY, Dr. Ivone Reese Attending Provider Gómez KENNEDY, Dr. Connor Other Provider Bryson KENNEDY, Dr. Pinto Primary Care Provider [facility], Dr. Wagoner Emergency Provider Gómez KENNEDY, Dr. Connor Admit Provider Jennifer KENNEDY, Dr. Long Primary Care Provider [phone] Ethan Mayorga Attending Provider Unavailable Ethan Mayorga Referring Provider Unavailable Hunter OWEN-CSvetlana Attending Provider Yu KENNEDY, Dr. Abarca Attending Provider [phone] Jennifer KENNEDY, Dr. Long Primary Care Provider [phone] Jennifer KENNEDY, Dr. Long Referring Provider Bryson KENNEDY, Dr. Pinto Attending Provider Kenneth Massey MD, Dr. Pinto Referring Provider Unavailvika Mendez MD, Dr. Carlton Attending Provider Andrea KENNEDY, Dr. Carlton Referring Provider Bryson KENNEDY, Dr. Pinto Referring Provider Unavailvika Jain MD, Dr. Killian Emergency Provider Jennifer KENNEDY, Dr. Long Primary Care Provider [phone] Bryson KENNEDY, Dr. Pinto Attending Provider Unavailvika Rodriguez MD, Dr. Long Referring Provider Ricardo KENNEDY, Dr. Saul Sandy Attending Provider Meghan Turcios Referring Provider Cristobal KENNEDY, Dr. Killian Attending Provider Angie Torres Consulting Unavailable Kvng Watkins Admitting Unavailable Nikolas Magaña Attending Unavailable Noah Avery Referring Unavailable Ethan Rodriguez Primary Care Unavailable Kvng Watkins Consulting Unavailable Koram, Mar Arpita Consulting Unavailable Jopperi, Judd Consulting Unavailable Gudla, Millie Referring Unavailable Gudla, Millie Attending Unavailable Gudla, Millie Primary Care Unavailable Melissa, Jayaprakas Consulting Unavailable Gudla, Millie Primary Care Unavailable Gómez, Nikolas Admitting Unavailable Gómez, Nikolas Attending Unavailable Melissa, Jayaprakas Consulting Unavailable Jopperi, Judd Admitting Unavailable Koram, Mar Arpita Attending Unavailable Rodriguez, Ethan Primary Care Unavailable Jopperi, Judd Consulting Unavailable Remedios Kessler Consulting Unavailable Rodriguez Ethan RENE Attending Unavailable Rodriguez, Ethan Primary Care Unavailable Melissa, Jayaprakas Attending Unavailable Melissa, Jayaprakas Referring Unavailable Rodriguez, Ethan Primary Care Unavailable Rodriguez, Ethan Primary Care Unavailable Wilbert Cueto Attending Unavailable Gudla, Millie Primary Care Unavailable Tevin Nicholas Attending Unavailable Jennifer, Ethan Primary Care Unavailable Rodriguez Ethan RENE Attending Unavailable Ethan Mayorga Attending Unavailable Jennifer, Ethan Primary Care Unavailable Rodriguez Ethan RENE Referring Unavailable Rodriguez Ethan RENE Attending Unavailable Rodriguez, Ethan Primary Care Unavailable Jeffery Veloz Attending Unavailable Jennifer, Ethan Primary Care Unavailable Gudla Millie RENE Attending Unavailable Gudla Millie RENE Referring Unavailable Gudla, Millie Primary Care Unavailable Rodriguez Ethan RENE Referring Unavailable Rodriguez Ethan RENE Attending Unavailable Rodriguez, Ethan Primary Care Unavailable Gudla Millie RENE Attending Unavailable Jennifer, Ethan Primary Care Unavailable Gudla Millie RENE Attending Unavailable Jennifer, Ethan Primary Care Unavailable Gudla Millie RENE Attending Unavailable Rodriguez, Ethan Primary Care Unavailable Melissa, Jayaprakas Consulting Unavailable Judd Galvin Attending Unavailable Kvng Watkins Admitting Unavailable Rodriguez, Ethan Primary Care Unavailable Noah Avery Referring Unavailable Kvng Watkins Consulting Unavailable Koram, Mar Arpita Consulting Unavailable Jopperi, Judd Consulting Unavailable Shital Galvinic Attending Unavailable Jennifer, Ethan Primary Care Unavailable Gómez, Nikolas Attending Unavailable Gómez, Nikolas Consulting Unavailable Melissa, Jayaprakas Consulting Unavailable Gudla, Millie Primary Care Unavailable Gómez, Nikolas Admitting Unavailable Gómez, Nikolas Attending Unavailable Gómez, Nikolas Consulting Unavailable Svetlana Harrison Attending Unavailable Koram, Mar Arpita Attending Unavailable Ivone Buckner Attending Unavailable Rodriguez, Ethan Primary Care Unavailable Jeffery Veloz Attending Unavailable Rodriguez, Ethan Referring Unavailable Rodriguez, Ethan Primary Care Unavailable Chioma Vigil Attending Unavailable Rodriguez, Ethan Referring Unavailable Friend, Nick Attending Unavailable Gudla OLS Millie Attending Unavailable Gudla, Millie Primary Care Unavailable Gudla OLS, Millie Attending Unavailable Gudla, Millie Primary Care Unavailable Gudla, Millie Primary Care Unavailable Gudla OLS, Millie Attending Unavailable Gudla OLS, Millie Referring Unavailable Gudla, Millie Primary Care Unavailable Gudla OLS Millie Attending Unavailable Gudla, Millie Primary Care Unavailable Gudla OLS, Millie Attending Unavailable Gudla, Millie Primary Care Unavailable Gudla Sadie RENEyothi Attending Unavailable Gudla EDGARD, Millie Attending Unavailable Rodriguez, Ethan Primary Care Unavailable Gudla EDGARD Millie Attending Unavailable Gudla, Millie Primary Care Unavailable Gudla, Millie Primary Care Unavailable Gudla EDGARD, Millie Attending Unavailable Gudla EDGARD, Millie Attending Unavailable Rodriguez, Ethan Primary Care Unavailable Gudla EDGARD Millie Attending Unavailable Gudla, Millie Primary Care Unavailable Gudla EDGARD Millie Attending Unavailable Rodriguez, Ethan Primary Care Unavailable Sheldon Toribio Attending Unavailable Rodriguez, Ethan Primary Care Unavailable Gudla Sadie RENEyothi Attending Unavailable Rodriguez, Ethan Primary Care Unavailable Rodriguez Ethan RENE Attending Unavailable Rodriguez, Ethan Primary Care Unavailable Gudla EDGARD, Millie Attending Unavailable Rodriguez, Ethan Primary Care Unavailable Gudla, Millie Primary Care Unavailable Constantin Jain Attending Unavailable Gudla EDGARD, Millie Attending Unavailable Rodriguez, Ethan Primary Care Unavailable Gudla EDGARD, Millie Attending Unavailable Rodriguez, Ethan Primary Care Unavailable Angie Torres Consulting Unavailable Koram, Mar Arpita Referring Unavailable Friend, Nick Attending Unavailable Rodriguez, Ethan Primary Care Unavailable Judd Galvin Admitting Unavailable Judd Galvin Consulting Unavailable Rmeedios Kessler Consulting Unavailable Gudla EDGARD, Millie Attending Unavailable Gudla, Millie Primary Care Unavailable Remedios Kessler Attending Unavailable Millie Massey Primary Care Unavailable Brandt Mendez Referring Unavailable Brandt Mendez Attending Unavailable Adilene Rainey Attending Unavailable Ethan Rodriguez Primary Care Unavailable Ethan Rodriguez Referring Unavailable Mar Mead Attending Unavailable Mar Mead Consulting Unavailable Kvng Watkins Attending Unavailable Ethan Rodriguez Primary Care Unavailable Sadia Phoenix Attending Unavailable Allergies Allergy Classification Reported Allergen(s) Allergy Type Date of Onset Reaction(s) Facility (20 sources) Iodine Compounds; Translations: [Unknown] Propensity to adverse reactions to drug 7 GI Intolerance, Rash [facility] Work Phone: (6 sources) Iodine And Iodide Containing Products Propensity to adverse reactions to drug 7 GI Intolerance [facility] (20 sources) Shellfish; Translations: [SHELLFISH DERIVED] Propensity to adverse reactions to drug 4 GI Intolerance [facility] (12 sources) Fish derivative; Translations: [FISH DERIVED] Propensity to adverse reactions to drug 4 GI Intolerance [facility] Work Phone: (9 sources) Iodine Drug Allergy 5 [facility] (1 source) Iodine Drug Allergy 5 [facility] Repository Medications Current Medications Medication Drug Class(es) Dates Sig (Normalized) Sig (Original) acetaminophen 650 mg rectal suppository (20 sources) Start: 08-14-2024 Start: 07-18-2024 Start: 06-10-2022 End: 06-11-2022 take 1 tablet by mouth every four hours as needed for pain and headache acetaminophen (TYLENOL) tablet 650 mg Start: 09-15-2018 End: 09-15-2018 take 1 tablet by mouth every four hours as needed 650 mg, Oral, Every 4 hours PRN, mild pain, headaches, Starting 09/15/18 at 0059 Do not exceed max of 4000 mg acetaminophen in 24 hours. take 2 tablets by mo [facility] every six hours as needed for pain acetaminophen (TYLENOL) 325 MG tablet Take 2 (two) tablets (650 mg total) by mouth every 6 (six) hours as needed for pain . Active acetaminophen 325 mg / oxyCODONE hydrochloride 5 mg oral tablet (10 sources) Opioid Agonist Start: 09-26-2023 End: 10-03-2023 oxyCODONE-acetaminophen (PERCOCET) 5-325 mg per tablet Indications: Acute right-sided low back pain without sciatica Take 1 (one) tablet by mouth every 6 (six) hours as needed for pain (Days supply per fill: 7) . 21 tablet 0 09/26/2023 10/03/2023 Active Start: 09-18-2023 oxyCODONE-acet aminophen (PERCOCET) 5-325 mg per tablet Indications: Acute midline low back pain without sciatica Take 1 tablet 1 hour before MRI Scan . 1 tablet 0 09/18/2023 Suspended Start: 09-15-2018 End: 10-12-2018 take 1 tablet by mouth every eight hours as needed for pain, then take 5 tablets by mouth as needed for pain oxyCODONE-acetaminophen (PERCOCET) 5-325 mg per tablet Indications: Acute appendicitis with localized peritonitis and gangrene, without perforation or abscess Take 1 (one) tablet by mouth every 8 (eight) hours as needed for pain (Days supply per fill: 5) . 15 tablet 0 09/15/2018 10/12/2018 Discontinued Start: 09-15-2018 End: 09-15-2018 take 1-2 tablets by mouth every four hours as needed 1-2 tablet, Oral, Every 4 hours PRN (may repeat), moderate to severe pain, Starting 09/15/18 at 0059 [] Initiate with 1 tablet oral every 4 hours prn moderate to severe pain. [] For unrelieved pain, may repeat one tablet oral dose within 60 minutes of initial dose. [] If pain is RELIEVED after repeat dose, change to two tablets of 5/325 mg oral every 4 hours prn moderate to severe pain. [] If pain is UNrelieved after repeat dose, or patient requires dose reduction, call physician. albuterol 90 mcg/actuation inhaler (2 sources) Start: 12-06-2019 End: 12-05-2020 take 2 puff(s) by inhalation every six hours as needed for wheezing albuterol 90 mcg/actuation inhaler Indications: Wheezing Inhale 2 (two) puffs every 6 (six) hours as needed for wheezing . 1 Inhaler 0 12/06/2019 12/05/2020 Active aluminum hydroxide 40 mg/ml / magnesium hydroxide 40 mg/ml oral suspension (18 sources) Start: 07-18-2024 amino acids/protein hydrolys (PRO-STAT AWC ORAL) (9 sources) take 30 mL by mouth at bedtime amino acids/protein hydrolys (PRO-STAT AWC ORAL) Take 30 mL by mouth at bedtime . Active amLODIPine 5 mg oral tablet (20 sources) Dihydropyridine Calcium Channel Unique Start: 07-18-2024 Start: 03-11-2024 End: 07-18-2024 Start: 11-23-2023 take 1 tablet by elma th once daily amLODIPine (NORVASC) 5 MG tablet Indications: Orthostatic hypotension Take 1 (one) tablet (5 mg total) by mouth daily . 90 tablet 3 11/23/2023 Suspended Start: 10-21-2023 End: 12-20-2023 take 1 tablet by mouth once daily amLODIPine (NORVASC) 10 MG tablet Take 1 (one) tablet (10 mg total) by mouth daily . 30 tablet 11/20/2023 11/23/2023 Discontinued amoxicillin 875 mg / clavulanate 125 mg oral tablet (1 source) Penicillin-class Antibacterial Start: 06-21-2021 End: 07-01-2021 take 1 tablet by mouth twice daily amoxicillin-clavulanate (Augmentin) 875-125 mg per tablet Indications: Acute non-recurrent maxillary sinusitis Take 1 (one) tablet by mouth 2 (two) times a day for 10 days . 20 tablet 0 06/21/2021 07/01/2021 Active apixaban 5 mg oral tablet (20 sources) Factor Xa Inhibitor Start: 06-18-2022 End: 12-19-2022 take 1 tablet by mouth twice daily apixaban (Eliquis) 5 mg Tab Indications: Acute deep vein thrombosis (DVT) of axillary vein of left upper extremity (HCC) Take 1 (one) tablet (5 mg total) by mouth 2 (two) times a day . 60 tablet 11 09/27/2022 12/19/2022 Discontinued Start: 06-18-2022 End: 06-13-2022 take 1 tablet by mouth twice daily apixaban (Eliquis) 5 mg Tab Take 1 (one) tablet (5 mg total) by mouth 2 (two) times a day Start: 06/18/22. 60 tablet 0 06/18/2022 06/13/2022 Discontinued (Reorder (Suppress CancelRx Message to Pharmacy)) Start: 06-18-2022 End: 07-18-2022 take 1 tablet by mouth twice daily apixaban (Eliquis) 5 mg Tab Indications: Acute deep vein thrombosis (DVT) of axillary vein of left upper extremity (HCC) Take 1 (one) tablet (5 mg total) by mouth 2 (two) times a day Start: 06/18/22. 60 tablet 2 06/18/2022 07/18/2022 Active Start: 06-11-2022 End: 06-18-2022 take 2 tablets by mouth twice daily apixaban (Eliquis) 5 mg Tab Take 2 (two) tablets (10 mg total) by mouth 2 (two) times a day for 7 days . 26 tablet 0 06/11/2022 06/13/2022 Discontinued Start: 06-11-2022 End: 06-11-2022 apixaban (ELIQUIS) tablet 10 mg aspirin 81 mg delayed release oral tablet (20 sources) Platelet Aggregation Inhibitor, Nonsteroidal Anti-inflammatory Drug Start: 03-11-2024 Start: 10-21-2023 End: 11-20-2023 take 1 tablet by mouth once daily aspirin 81 MG EC tablet Take 1 (one) tablet (81 mg total) by mouth daily Start: 10/21/23. 30 tablet 10/21/2023 11/20/2023 aspirin 81 mg ch ewable tablet Chew and Swallow 1 (one) tablet (81 mg total) daily On hold since last week per pt. . Active atorvastatin 20 mg oral tabl et (20 sources) HMG-CoA Reductase Inhibitor Start: 03-11-2024 Start: 10-20-2023 End: 12-14-2023 take 1 tablet by mouth once daily atorvastatin (LIPITOR) 20 MG tablet Indications: Hyperlipidemia, unspecified hyperlipidemia type Take 1 (one) tablet (20 mg total) by mouth nightly . 90 tablet 3 12/14/2023 Active bisacodyl 10 mg rectal suppo sitory (18 sources) Stimulant Laxative Start: 07-31-2024 cetirizine hydrochloride 10 mg oral tablet (3 sources) Histamine-1 Receptor Antagonist Start: 09-15-2024 cholecalciferol 0.125 mg ora l capsule (9 sources) Vitamin D Start: 07-31-2024 cyclobenzaprine hydrochlorid e 5 mg oral tablet (20 sources) Muscle Relaxant Start: 06-05-2024 Start: 09-26-2023 take 1 tablet by elma th three times daily as needed for muscle spasms cyclobenzaprine (FLEXERIL) 10 MG tablet Indications: Acute right-sided low back pain without sciatica Take 1 (one) tablet (10 mg total) by mouth 3 (three) times a day as needed for muscle spasms . 60 tablet 0 09/26/2023 Suspended diphenhydrAMINE hydrochloride 50 mg oral tablet (4 sources) Histamine-1 Receptor Antagonist Start: 01-08-2024 End: 01-09-2024 take 1 tablet by mouth once, then take 1 tablet by mouth every hour diphenhydrAMINE (BENADRYL) 50 MG tablet Take 1 (one) tablet (50 mg total) by mouth once Take one tablet one hour prior to scan for 1 dose . 1 tablet 01/08/2024 01/09/2024 Active docusate sodium 100 mg oral tablet (12 sources) Start: 07-18-2024 Start: 09-15-2018 End: 10-15-2018 take 1 capsule by mouth once daily docusate sodium (COLACE) 100 MG capsule Take 1 (one) capsule (100 mg total) by mouth daily Stop taking medication when off pain medication or if having diarrhea . 30 capsule 0 09/15/2018 10/15/2018 Active docusate sodium 50 mg / sharon osjuana, m[facility] 8.6 mg oral tablet (20 sources) Start: 07-18-2024 Start: 07-18-2024 End: 07-18-2024 take 1 tablet by elma th once daily in the morning senna-docusate (sennosides-docusate sodium) 8.6-50 mg Take 1 (one) tablet by mouth every morning . Active doxycycline hyclate 100 mg oral capsule (4 sources) Tetracycline-class Drug Start: 11-28-2022 End: 12-08-2022 take 1 capsule by mouth twice daily doxycycline hyclate (VIBRAMYCIN) 100 MG capsule Indications: Acute non-recurrent maxillary sinusitis Take 1 (one) capsule (100 mg total) by mouth 2 (two) times a day for 10 days . 20 capsule 0 11/28/2022 12/08/2022 Active Start: 04-06-2022 End: 04-16-2022 take 1 capsule by mouth twice daily doxycycline hyclate (VIBRAMYCIN) 100 MG capsule Indications: Acute non-recurrent maxillary sinusitis Take 1 (one) capsule (100 mg total) by mouth 2 (two) times a day for 10 days . 20 capsule 0 04/06/2022 04/16/2022 Active dronabinol 2.5 mg oral capsule (9 sources) Cannabinoid Start: 07-18-2024 furosemide 80 mg oral tablet (3 sources) Loop Diuretic Start: 09-15-2024 glucagon (rdna) 1 mg injection (9 sources) Antihypoglycemic Agent glucagon 1 mg/mL SolR Inject into the shoulder, thigh, or buttocks as needed . Active glucose 0.4 mg/mg oral gel (18 sources) Start: 08-14-2024 dextrose 40 % ge l Take 15 (fifteen) g by mouth as needed . Active guaiFENesin 20 mg/ml oral so lution (18 sources) Start: 07-18-2024 take 200 mg by mouth every four hours guaiFENesin 200 mg/5 mL Liqd Take 5 mL (200 mg total) by mouth every 4 (four) hours . Active heparin (porcine) 5,000 unit /mL Soln 5,000 Units, sodium chloride 0.9 % SolP 2.1 mL (9 sources) heparin (porcine ) 5,000 unit/mL Soln 5,000 Units, sodium chloride 0.9 % SolP 2.1 mL Inject as directed every 8 (eight) hours . Active lactobacillus rhamnosus gg [id number] unt oral capsule (18 sources) Start: 07-18-2024 Start: 03-05-2024 take 1 capsule by [facility] once daily in the morning Lactobacillus rhamnosus GG (CULTURELLE) 10 billion cell capsule Take 1 (one) capsule by mouth every morning . 03/05/2024 Active lidocaine 0.04 mg/mg medicated patch (20 sources) Antiarrhythmic, Amide Local Anesthetic apply 1 dose transdermal route once daily, then apply 1 dose transdermal route every twelve hours lidocaine 4 % patch Place 1 (one) patch on the skin daily Remove & Discard patch within 12 hours or as directed by . Active magnesium hydroxide 80 mg/ml oral suspension (20 sources) take 30 mL by mouth once daily as needed magnesium hydroxide (MOM) 400 mg/5 mL Susp Take 30 mL (2,400 mg total) by mouth daily as needed . Active metoprolol tartrate 25 mg oral tablet (20 sources) beta-Adrenergic Unique Start: 03-11-20 Start: 11-24-2023 End: 11-23-2023 take 1 tablet by mouth twice daily metoprolol tartrate (LOPRESSOR) 25 MG tablet Take 1 (one) tablet (25 mg total) by mouth 2 (two) times a day . 180 tablet 3 11/24/2023 Active Start: 11-24-2023 End: 11-23-2023 take 1 tablet by mouth twice daily metoprolol tartrate (LOPRESSOR) 25 MG tablet Take 1 (one) tablet (25 mg total) by mouth 2 (two) times a day . 180 tablet 3 11/24/2023 Active Start: 11-24-2023 End: 11-23-2023 take 1 tablet by mouth twice daily metoprolol tartrate (LOPRESSOR) 25 MG tablet Take 1 (one) tablet (25 mg total) by mouth 2 (two) times a day . 180 tablet 3 11/24/2023 Active Start: 11-24-2023 take 1 tablet by elma twice daily metoprolol tartrate (LOPRESSOR) 25 MG tablet Take 1 (one) tablet (25 mg total) by mouth 2 (two) times a day . 180 tablet 3 11/24/2023 Active midodrine hydrochloride 10 m g oral tablet (18 sources) alpha-Adrenergic Agonist Start: 07-18-2024 Start: 03-20-2024 End: 04-19-2024 take 1 tablet by mouth once daily as needed midodrine (PROAMATINE) 10 MG tablet Take 1 (one) tablet (10 mg total) by mouth daily as needed (SBP 1 tablet 1 03/20/2024 Active mirtazapine 15 mg oral table t (20 sources) Start: 08-14-2024 Start: 07-18-2024 End: 08-14-2024 Start: 04-30-2024 End: 07-18-2024 multivit,stress formula-zinc Tab (9 sources) Start: 10-02-2024 take 1 tablet by mouth once daily in the morning multivit,stress formula-zinc Tab Take 1 tablet by mouth every morning . 02/28/2024 Active [id number] fum-folic ac (Thera-M) 19 mg iron- 400 mcg Tab (9 sources) Start: 03-05-2024 take 1 tablet by mouth once daily in the morning [id number] fum-folic ac (Thera-M) 19 mg iron- 400 mcg Tab Take 1 tablet by mouth every morning . 03/05/2024 Active multivitamin (multivitamin) per tablet (18 sources) take 1 tablet by mouth once daily multivitamin (multivitamin) per tablet Take 1 tablet by mouth daily . 0 Active multivitamin (THERAGRAN) per tablet (20 sources) take 1 tablet by mouth once daily multivitamin (THERAGRAN) per tablet Take 1 (one) tablet by mouth daily . Suspended take 1 tablet by mouth once yolis y multivitamin (THERAGRAN) per tablet Take 1 (one) tablet by mouth daily . Active take 1 tablet by mouth once yolis y multivitamin (THERAGRAN) per tablet Take 1 (one) tablet by mouth daily . 0 Suspended take 1 tablet by mouth once yolis y multivitamin (THERAGRAN) per tablet Take 1 (one) tablet by mouth daily . 0 take 1 tablet by mouth once yolis y multivitamin (THERAGRAN) per tablet Take 1 (one) tablet by mouth daily . 0 Active take 1 tablet by mouth once yolis y multivitamin (THERAGRAN) per tablet Take 1 tablet by mouth daily . 0 Active naloxone hydrochloride 40 mg/ml nasal spray (20 sources) Opioid Antagonist naloxone (NARC AN) 4 mg/actuation [place] Administer 1 (one) spray (4 mg total) into one nostril as needed (OPIOID OVERDOSE) Administer 1 spray into one nostril for known or suspected opioid overdose. If patient worsens or does not respond, may repeat in 2-3 minutes. . Active ondansetron 4 mg disintegrating oral tablet (19 sources) Serotonin-3 Receptor Antagonist Start: 07-18-2024 Start: 09-14-2018 End: 09-14-2018 ondansetron (ZOFRAN) injecti on 4 mg take 1 tablet by elma th every eight hours as needed for nausea ondansetron (ZOFRAN) 4 MG tablet Take 1 (one) tablet (4 mg total) by mouth every 8 (eight) hours as needed for nausea . Active oxyCODONE hydrochloride 5 mg oral tablet (20 sources) Opioid Agonist Start: 03-11-2024 End: 07-18-2024 take 1 capsule by [facility] every six hours as needed for pain oxyCODONE (OXY-IR) 5 mg capsule Take 1 (one) capsule (5 mg total) by mouth every 6 (six) hours as needed for pain . Active End: 01-09-2024 take 1 tablet by mouth every six hours as needed for pain oxyCODONE (ROXICODONE) 5 MG immediate release tablet Take 1 (one) tablet (5 mg total) by mouth every 6 (six) hours as needed for pain . 01/09/2024 Discontinued pantoprazole 40 mg delayed release oral tablet (17 sources) Proton Pump Inhibitor Start: 08-13-2024 End: 08-17-2024 polyethylene glycol 3350 60770 mg powder for oral solution (9 sources) Osmotic Laxative Start: 07-18-2024 sertraline 25 mg oral tablet (9 sources) Serotonin Reuptake Inhibitor Start: 07-18-2024 sodium phosphate, dibasic 59.3 mg/ml / sodium phosphate, monobasic 161 mg/ml enema (18 sources) Start: 08-14-2024 thiamine 100 mg oral tablet (9 sources) Start: 03-20-2024 End: 04-19-2024 take 1 tablet by mouth twice daily thiamine 100 MG tablet Take 1 (one) tablet (100 mg total) by mouth 2 (two) times a day . 60 tablet 03/20/2024 Active levothyroxine sodium 0.2 mg oral tablet (20 sources) l-Thyroxine Start: 07-18-2024 Start: 02-26-2024 End: 04-30-2024 Start: 02-26-2024 End: 07-18-2024 Start: 01-26-2023 End: 02-16-2024 levothyroxine (SYNTHROID, LE VOTHROID) 25 MCG tablet Indications: Hypothyroidism, unspecified type Take one tablet on Monday and Monday only in addition to 125mcg dose. . 8 tablet 11 02/16/2024 Active Start: 05-06-2019 End: 09-29-2023 take 1 tablet by mouth once daily levothyroxine (SYNTHROID, LEVOTHROID) 125 MCG tablet Indications: Hypothyroidism, unspecified type TAKE 1 TABLET BY MOUTH DAILY 90 tablet 3 09/29/2023 Suspended Start: 05-14-2018 End: 09-15-2018 take 1 tablet by mouth once daily levothyroxine (SYNTHROID, LEVOTHROID) 125 MCG tablet Take 1 (one) tablet (125 mcg total) by mouth once daily . 90 tablet 3 05/14/2018 Active Start: 10-28-2016 take 1 tablet by elma th once daily levothyroxine (SYNTHROID, LEVOTHROID) 125 MCG tablet Take 1 tablet (125 mcg total) by mouth once daily. 90 tablet 3 10/28/2016 Active take 1 tablet by elma th once daily levothyroxine (SYNTHROID, LEVOTHROID) 150 MCG tablet Take 1 (one) tablet (150 mcg total) by mouth once daily . Active urea 400 mg/ml topical lotio n (2 sources) Start: 06-17-2021 End: 09-15-2021 urea 40 % Lotn Apply 1 application topically 2 (two) times a day . 226.8 g 1 06/17/2021 09/15/2021 Active (20 sources) Start: 09-15-2024 Start: 08-13-2024 Start: 07-31-2024 Start: 07-31-2024 End: 08-13-2024 Start: 07-18-2024 Start: 07-18-2024 End: 07-18-2024 Start: 06-05-2024 End: 07-18-2024 Start: 04-11-2024 Start: 04-11-2024 End: 07-18-2024 Completed/Discontinued Medications Medication Drug Class(es) Dates Sig (Normalized) Sig (Original) [id number] 200 actuat albuterol 0.09 mg/actuat metered dose inhaler (4 sources) beta2-Adrenergic Agonist Start: 12-06-2019 End: 05-12-2021 take 2 puff(s) by inhalation every six hours as needed for wheezing albuterol 90 mcg/actuation inhaler Indications: Wheezing Inhale 2 (two) puffs every 6 (six) hours as needed for wheezing . 1 Inhaler 0 12/06/2019 05/12/2021 Discontinued (Therapy completed) ascorbic acid 500 mg oral capsule (20 sources) Vitamin C Start: 04-11-2024 End: 08-13-2024 Start: 03-05-2024 benzonatate 100 mg oral capsule (5 sources) Non-narcotic Antitussive Start: 12-06-2019 End: 09-29-2020 benzonatate (Tessalon Perles) 100 MG capsule Indications: Cough , Upper respiratory tract infection, unspecified type Take one or two capsules every 8 hours as needed for cough. Do not chew. . 60 capsule 1 12/06/2019 09/29/2020 Discontinued calcium chloride 0.001 meq/ml / glucose 50 mg/ml / potassium chloride 0.004 meq/ml / sodium chloride 0.103 meq/ml / sodium lactate 0.028 meq/ml injectable solution (1 source) Start: 09-15-2018 End: 09-15-2018 take 100 mL intravenous route every hour 100 mL/hr, Intravenous, Continuous, Starting 09/15/18 at 0145 cephalexin 500 mg oral capsule (10 sources) Cephalosporin Antibacterial Start: 04-11-2024 End: 04-30-2024 Start: 01-05-2022 End: 01-12-2022 take 1 capsule by mouth twice daily cephALEXin (KEFLEX) 500 MG capsule Indications: Toe infection Take 1 (one) capsule (500 mg total) by mouth 2 (two) times a day for 7 days . 14 capsule 0 01/05/2022 01/12/2022 Active cloNIDine hydrochloride 0.1 mg oral tablet (20 sources) Central alpha-2 Adrenergic Agonist End: 11-23-2023 take 1 tablet by mouth every six hours as needed cloNIDine HCL (CATAPRES) 0.1 MG tablet Take 1 (one) tablet (0.1 mg total) by mouth every 6 (six) hours as needed (HIGH BLOOD PRESSURE) . 11/23/2023 Discontinued famotidine 10 mg oral tablet (20 sources) Histamine-2 Receptor Antagonist Start: 07-18-2024 End: 08-13-2024 Start: 04-11-2024 End: 07-18-2024 fluticasone propionate 0.05 mg/actuat metered dose nasal spray (5 sources) Corticosteroid Start: 12-06-2019 End: 09-29-2020 take 2 spray(s) nasal route once daily fluticasone propionate (FLONASE) 50 mcg/actuation nasal spray Indications: Upper respiratory tract infection, unspecified type Instill 2 (two) sprays into each nostril daily . 16 g 0 12/06/2019 09/29/2020 Discontinued gabapentin 300 mg oral capsule (3 sources) Anti-epileptic Agent Start: 11-25-2021 End: 04-06-2022 take 1 capsule by mouth once daily at bedtime gabapentin (NEURONTIN) 300 MG capsule Indications: Idiopathic peripheral neuropathy Take 1 (one) capsule (300 mg total) by mouth at bedtime (Days supply per fill: 30) . 30 capsule 0 11/25/2021 04/06/2022 Discontinued 1 ml heparin sodium, porcine 5000 unt/ml cartridge (11 sources) Unfractionated Heparin, Anti-coagulant Start: 03-11-2024 End: 08-13-2024 Start: 06-10-2022 End: 06-11-2022 heparin (porcine) 25,000 unit/250 mL(100 unit/mL) in D5W infusion Start: 09-15-2018 End: 09-15-2018 inject 5000 [IU] by subcutaneous injection every eight hours 5,000 Units, Subcutaneous, Every 8 hours scheduled, First dose on 09/15/18 at 0600 Notify physician if patient refuses. heparin bolus from bag 0-10,000 Units (1 source) Start: 06-10-2022 End: 06-11-2022 heparin bolus from bag 0-10,000 Units hydrALAZINE hydrochloride 25 mg oral tablet (20 sources) Arteriolar Vasodilator Start: 12-22-2023 End: 04-11-2024 Start: 10-20-2023 End: 11-23-2023 take 1 tablet by mouth every six hours as needed hydrALAZINE (APRESOLINE) 25 MG tablet Take 1 (one) tablet (25 mg total) by mouth every 6 (six) hours as needed (SBP > 160) . 1 tablet 10/20/2023 11/23/2023 Discontinued HYDROmorphone (DILAUDID) 0.5 mg/mL injection 0.5 mg (1 source) Start: 09-15-2018 End: 09-15-2018 0.5 mg, Intravenous, Every 5 min PRN, Pain, Starting 09/15/18 at 0009, For 6 doses, PACU (only) [] Give if fentanyl not effective or not ordered. [] Do not give more than 3 mg total. lactose-reduced food (BOOST BREEZE NUTRITIONAL ORAL) (1 source) End: 04-04-2024 take 237 mL by mouth twice daily lactose-reduced food (BOOST BREEZE NUTRITIONAL ORAL) Take 237 mL by mouth 2 (two) times a day . 04/04/2024 Discontinued (Discontinued by another clinician) loperamide hydrochloride 2 mg oral capsule (9 sources) Opioid Agonist Start: 08-13-2024 End: 09-15-2024 meloxicam 15 mg oral tablet (11 sources) Nonsteroidal Anti-inflammatory Drug Start: 01-14-2019 End: 05-27-2020 take 1 tablet by mouth once daily meloxicam (MOBIC) 15 MG tablet Indications: Hip pain, bilateral Take 1 (one) tablet (15 mg total) by mouth daily . 20 tablet 1 02/22/2019 03/25/2019 Discontinued (Reorder) 1 ml morphine sulfate 2 mg/ml prefilled syringe (1 source) Opioid Agonist Start: 09-14-2018 End: 09-14-2018 morphine injection 2 mg naloxone (NARCAN) 4 mg/actuation [place] (6 sources) End: 11-23-2023 naloxone (NARCAN) 4 mg/actuation [place] Administer 1 (one) spray (4 mg total) into one nostril as needed (OPIOID OVERDOSE) Administer 1 spray into one nostril for known or suspected opioid overdose. If patient worsens or does not respond, may repeat in 2-3 minutes. . 11/23/2023 Discontinued naloxone (NARCAN ) 4 mg/actuation [place] Administer 1 (one) spray (4 mg total) into one nostril as needed (OPIOID OVERDOSE) Administer 1 spray into one nostril for known or suspected opioid overdose. If patient worsens or does not respond, may repeat in 2-3 minutes. . Active naloxone (NARCAN) injection 0.1 mg (1 source) Start: 09-15-2018 End: 09-15-2018 naloxone (NARCAN) injection 0.1 mg 24 hr NIFEdipine 30 mg extended release oral tablet (7 sources) Dihydropyridine Calcium Channel Unique Start: 06-10-2022 End: 06-11-2022 take 30 mg by mouth once daily 30 mg, Oral, Daily, First dose on Mon06/10/22 at 1600 Start: 06-06-2022 End: 06-06-2023 take 1 tablet by mouth once daily NIFEdipine (PROCARDIA XL) 30 MG 24 hr tablet Indications: Raynaud's phenomenon without gangrene Take 1 (one) tablet (30 mg total) by mouth daily . 30 tablet 11 06/06/2022 08/15/2022 Discontinued omega-3 fatty acids-fish oil 340-1,000 mg cap (20 sources) End: 08-15-2022 take 1 capsule by mouth once daily omega-3 fatty acids-fish oil 340-1,000 mg cap Take 1 (one) capsule by mouth daily . 0 08/15/2022 Discontinued take 1 capsule by mouth once crystal ly omega-3 fatty acids-fish oil 340-1,000 mg cap Take 1 (one) capsule by mouth daily . 0 take 1 capsule by mouth once crystal ly omega-3 fatty acids-fish oil 340-1,000 mg cap Take 1 (one) capsule by mouth daily . 0 Active take 1 capsule by mouth once crystal ly omega-3 fatty acids-fish oil 340-1,000 mg cap Take 1 capsule by mouth daily . 0 Active ondansetron (ZOFRAN-ODT) disintegrating tablet 4 mg (2 sources) Start: 06-10-2022 End: 06-11-2022 take 1 tablet by mouth every six hours as needed for nausea and vomiting ondansetron (ZOFRAN-ODT) disintegrating tablet 4 mg Start: 09-15-2018 End: 09-15-2018 take 1 tablet by mouth every six hours as needed ondansetron (ZOFRAN-ODT) disintegrating tablet 4 mg piperacillin 3000 mg / tazobactam 375 mg injection (1 source) Penicillin-class Antibacterial, beta Lactamase Inhibitor Start: 09-14-2018 End: 09-15-2018 take 3.375 g intravenous route every eight hours piperacillin-tazobactam (ZOSYN) IVPB 3.375 g (premix) piperacillin-ta zobactam (ZOSYN) 3.375 g in sodium chloride (NS) 0.9% 50 mL MBP (1 source) Start: 09-14-2018 End: 09-14-2018 piperacillin-tazobactam (ZOSYN) 3.375 g in sodium chloride (NS) 0.9% 50 mL MBP predniSONE 50 mg oral tablet (4 sources) Start: 01-08-2024 End: 01-09-2024 predniSONE (DELTASONE) 50 MG tablet Take 1 (one) tablet (50 mg total) by mouth daily Take one tablet 13 hours prior to scan, one tablet 7 hours prior to scan, and one table one hour prior to scan. . 3 tablet 01/08/2024 01/09/2024 Discontinued rosuvastatin calcium 10 mg oral tablet (20 sources) HMG-CoA Reductase Inhibitor Start: 11-28-2022 End: 11-28-2023 take 1 tablet by mouth once daily rosuvastatin (CRESTOR) 10 MG tablet Indications: Familial hypercholesteremia Take 1 (one) tablet (10 mg total) by mouth daily . 30 tablet 11 11/28/2022 11/28/2023 Suspended Sodium Chloride (4 sources) Start: 06-10-2022 End: 06-11-2022 sodium chloride (PF) (NS) flush 5 mL Start: 06-10-2022 End: 06-11-2022 sodium chloride (PF) (NS) fl ush 5 mL Start: 09-14-2018 End: 09-14-2018 sodium chloride 0.9% (NS) reanna tiffanie 500 mL Start: 09-14-2018 End: 09-14-2018 sodium chloride 0.9% (NS) warfarin sodium 2.5 mg oral tablet (20 sources) Vitamin K Antagonist Start: 12-13-2023 take 1 tablet by mouth once warfarin (COUMADIN) 2.5 MG tablet Take 1 (one) tablet (2.5 mg total) by mouth See Admin Instructions 2.5mg on M/W/F 5mg on S/T// RE-CHECK ON 12/20/23 On hold since last week per pt. . 12/13/2023 Suspended Start: 12-13-2023 warfarin (COUM RADHA) 2.5 MG tablet Take 1 (one) tablet (2.5 mg total) by mouth See Admin Instructions 2.5mg on M/W/F 5mg on S/T//SA RE-CHECK ON 12/20/23 . 12/13/2023 Active Start: 11-30-2023 warfarin (COUM RADHA) 7.5 MG tablet Take 5 mg by mouth See Admin Instructions l 2.5 mg on //. 5mg all other days. Recheck on 12/20/2023. . 11/30/2023 Active Start: 06-19-2023 warfarin (COUM RADHA) 5 MG tablet Indications: History of deep venous thrombosis [The details of the medication are not available because there are pending changes by a home health clinician.] 40 tablet 11 06/19/2023 Active Start: 12-12-2022 End: 06-19-2023 warfarin (COUMADIN) 5 MG tab let Indications: History of deep venous thrombosis Take 1 tablet (5mg) on Monday, Monday, Monday, Monday. Take 1.5 tablets (7.5mg) on Monday, , Monday or as directed by the anticoagulation clinic. . 40 tablet 11 06/19/2023 Suspended take 1 tablet by elma th once daily warfarin (COUMADIN) 7.5 MG tablet Take 1 (one) tablet (7.5 mg total) by mouth daily On Monday and Monday . Active Problems Active Problems Problem Classification Problem Date Documented Da te Episodic/Chronic Abdominal pain (1 source) Right lower quadrant pain; Translations: [Right lower quadrant abdominal pain] Episodic Acute and unspecified renal failure (12 sources) Acute renal failure syndrome; Translations: [Acute kidney failure, unspecified] Onset: 4 11-02-2023 Episodic Acute cerebrovascular disease (1 source) Cerebral infarction, unspecified; Translations: [Cerebral infarction, unspecified] Onset: 4 Chronic Acute posthemorrhagic anemia (20 sources) Acute posthemorrhagic anemia; Translations: [Acute posthemorrhagic anemia] Onset: 4 Episodic Administrative/social admission (9 sources) Need for personal care assistance; Translations: [Need for assistance with personal care] 04-30-2024 Episodic Allergic reactions (1 source) Allergy to contrast media; Translations: [Radiographic dye allergy status] 12-06-2023 Episodic Aortic; peripheral; and visceral artery aneurysms (20 sources) Ruptured abdominal aortic aneurysm; Translations: [Ruptured abdominal aortic aneurysm (AAA)] Onset: 4 10-10-2023 Chronic Cancer of brain and nervous system (1 source) Malignant neoplasm of brain, unspecified; Translations: [Malignant neoplasm of brain, unspecified] Onset: 5 Chronic Chronic kidney disease (20 sources) End stage renal disease; Translations: [End stage renal 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] Onset: 4 Chronic Chronic obstructive pulmonary disease and bronchiectasis (9 sources) Pulmonary emphysema; Translations: [Emphysema, unspecified] 04-30-2024 Chronic Coagulation and hemorrhagic disorders (20 sources) Factor V Leiden mutation; Translations: [Activated protein C resistance] Onset: 4 09-27-2022 Chronic Complications of surgical procedures or medical care (20 sources) Complication of surgical procedure; Translations: [Other complications of procedures, not elsewhere classified, initial encounter] Onset: 4 01-05-2024 Episodic Congestive heart failure; nonhypertensive (1 source) Heart failure, unspecified; Translations: [Heart failure, unspecified] Onset: 5 Chronic Deficiency and other anemia (5 sources) Anemia, unspecified; Translations: [Anemia, unspecified] Onset: 4 Episodic Deficiency and other anemia (20 sources) Anemia; Translations: [Anemia, unspecified] 07-31-2024 Episodic Deficiency and other anemia (20 sources) Chronic anemia; Translations: [Anemia, unspecified] 07-26-2024 Episodic Diabetes mellitus without complication (1 source) Type 2 diabetes mellitus without complications; Translations: [Type 2 diabetes mellitus without complications] Onset: 5 Chronic Diseases of white blood cells (19 sources) Leukocytosis; Translations: [Elevated white blood cell count, unspecified] Onset: 5 08-06-2024 Chronic Disorders of lipid metabolism (20 sources) Hyperlipidemia; Translations: [Hyperlipidemia, unspecified] Onset: 7 06-29-2016 Chronic Essential hypertension (20 sources) Hypertensive disorder; Translations: [Essential (primary) hypertension] Onset: 4 11-02-2023 Chronic Fluid and electrolyte disorders (18 sources) Dehydration; Translations: [Dehydration] 07-23-2024 Episodic Gastrointestinal hemorrhage (20 sources) Gastrointestinal hemorrhage; Translations: [Gastrointestinal hemorrhage, unspecified] Onset: 5 08-05-2024 Episodic Genitourinary symptoms and ill-defined conditions (11 sources) Dysuria; Translations: [Mike hematuria] Onset: 5 04-30-2024 Episodic Immunizations and screening for infectious disease (1 source) Contact with and (suspected) exposure to other viral communicable diseases; Translations: [Close Exposure to Covid-19 Virus] Episodic Intestinal infection (20 sources) Clostridium difficile colitis; Translations: [Enterocolitis due to Clostridium difficile, not specified as recurrent] Onset: 4 02-21-2024 Episodic Lymphadenitis (3 sources) Lymphadenopathy; Translations: [Generalized enlarged lymph nodes] 09-27-2022 Episodic Malaise and fatigue (20 sources) Other malaise; Translations: [Asthenia] Onset: 4 11-02-2023 Episodic Nonspecific chest pain (4 sources) Chest pain; Translations: [Chest pain, unspecified] Episodic Nutritional deficiencies (20 sources) Malnutrition (calorie); Translations: [Unspecified protein-calorie malnutrition] Onset: 5 07-26-2024 Chronic Other aftercare (1 source) Surgical follow-up; Translations: [Encounter for surgical aftercare following surgery on the circulatory system] 11-02-2023 Episodic Other aftercare (4 sources) Encounter for surgical aftercare following surgery on the circulatory system; Translations: [Encounter for surgical aftercare following surgery on the circulatory system] Onset: 4 Episodic Other aftercare (20 sources) Long-term current use of anticoagulant; Translations: [snf (current) use of anticoagulants] 07-31-2024 Episodic Other circulatory disease (10 sources) Raynaud's phenomenon; Translations: [Raynaud's syndrome without gangrene] Chronic Other circulatory disease (2 sources) Raynaud's syndrome without gangrene; Translations: [Raynaud's syndrome without gangrene] Onset: 4 Chronic Other circulatory disease (20 sources) Raynaud's disease; Translations: [Raynaud's syndrome without gangrene] 08-10-2024 Chronic Other circulatory disease (1 source) Ischemic toe; Translations: [Other disorder of circulatory system] 11-22-2023 Episodic Other circulatory disease (9 sources) Retroperitoneal hematoma; Translations: [Retroperitoneal hematoma] 04-30-2024 Episodic Other connective tissue disease (1 source) Trochanteric bursitis, right hip; Translations: [Trochanteric bursitis of right hip] Episodic Other connective tissue disease (1 source) Ganglion cyst of left foot; Translations: [Ganglion, left ankle and foot] Episodic Other connective tissue disease (1 source) 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; Translations: [Plantar fascial fibromatosis] Episodic Other connective tissue disease (10 sources) Muscle weakness; Translations: [Muscle weakness (generalized)] 09-27-2022 Episodic Other diseases of kidney and ureters (1 source) Renal impairment; Translations: [Disorder of kidney and ureter, unspecified] 12-26-2023 Episodic Other endocrine disorders (18 sources) Hypoglycemia; Translations: [Hypoglycemia, unspecified] 08-08-2024 Chronic Other endocrine disorders (1 source) Hypoglycemia, unspecified; Translations: [Hypoglycemia, unspecified] Onset: Chronic Other gastrointestinal disorders (18 sources) Diarrhea; Translations: [Diarrhea, unspecified] 08-07-2024 Episodic Other gastrointestinal disorders (9 sources) Oropharyngeal dysphagia; Translations: [Dysphagia, oropharyngeal phase] 04-30-2024 Episodic Other gastrointestinal disorders (9 sources) Constipation; Translations: [Constipation, unspecified] 04-30-2024 Episodic Other gastrointestinal disorders (1 source) Diarrhea, unspecified; Translations: [Diarrhea, unspecified] Onset: Episodic Other liver diseases (1 source) Enzyme level - finding; Translations: [Transaminitis] 09-27-2022 Episodic Other lower respiratory disease (20 sources) Pulmonary edema; Translations: [Chronic pulmonary edema] 08-14-2024 Chronic Other lower respiratory disease (2 sources) Chronic pulmonary edema; Translations: [Chronic pulmonary edema] Onset: Chronic Other lower respiratory disease (1 source) Cough; Translations: [Cough] Episodic Other lower respiratory disease (1 source) Wheezing; Translations: [Wheezing] Episodic Other lower respiratory disease (1 source) Nodule of lung; Translations: [Solitary pulmonary nodule] 09-27-2022 Episodic Other lower respiratory disease (1 source) Shortness of breath; Translations: [Shortness of breath] Onset: Episodic Other nervous system disorders (2 sources) Idiopathic peripheral neuropathy; Translations: [Hereditary and idiopathic neuropathy, unspecified] Chronic Other nervous system disorders (1 source) Paresthesia; Translations: [Paresthesia of skin] 08-24-2023 Episodic Other nervous system disorders (9 sources) Unsteady when standing; Translations: [Unsteadiness on feet] 04-30-2024 Episodic Other nervous system disorders (9 sources) Finding related to ability to move; Translations: [Other abnormalities of gait and mobility] 04-30-2024 Episodic Other nervous system disorders (9 sources) Symbolic dysfunction; Translations: [Other symbolic dysfunctions] 04-30-2024 Episodic Other non-traumatic joint disorders (2 sources) Pain in right hip; Translations: [Pain in right hip] Onset: 9 Episodic Other non-traumatic joint disorders (2 sources) Pain in left hip; Translations: [Pain in left hip] Onset: 9 Episodic Other screening for suspected conditions (not mental disorders or infectious disease) (20 sources) Patient encounter status; Translations: [Encounter for screening mammogram for malignant neoplasm of breast] Onset: 3 Episodic Other skin disorders (1 source) Acquired plantar keratoderma; Translations: [Acquired keratosis [keratoderma] palmaris et plantaris] Episodic Other skin disorders (16 sources) Localized infection of skin AND/OR subcutaneous tissue; Translations: [Changes in skin texture] 06-05-2024 Episodic Other upper respiratory infections (5 sources) Upper respiratory infection; Translations: [Acute maxillary sinusitis] Episodic Peripheral and visceral atherosclerosis (20 sources) Peripheral vascular disease, unspecified; Translations: [Peripheral vascular disease] Onset: 4 11-17-2023 Chronic Pleurisy; pneumothorax; pulmonary collapse (17 sources) Pleural effusion; Translations: [Pleural effusion, not elsewhere classified] Onset: 5 08-15-2024 Episodic Residual codes; unclassified (1 source) History of appendectomy; Translations: [S/P appendectomy] Episodic Residual codes; unclassified (1 source) Postmenopausal state; Translations: [Asymptomatic menopausal state] Episodic Residual codes; unclassified (18 sources) Edema, generalized; Translations: [Generalized edema] 08-14-2024 Episodic Residual codes; unclassified (16 sources) History of repair of aneurysm of abdominal aorta; Translations: [Other specified postprocedural states] 06-05-2024 Episodic Residual codes; unclassified (1 source) Generalized edema; Translations: [Generalized edema] Onset: 5 Episodic Respiratory failure; insufficiency; arrest (adult) (10 sources) Acute respiratory failure; Translations: [Acute respiratory failure with hypoxia] Onset: 5 04-30-2024 Episodic Skin and subcutaneous tissue infections (1 source) Infection of toe ; Translations: [Local infection of the skin and subcutaneous tissue, unspecified] Episodic Substance-related disorders (7 sources) Smoker; Translations: [Nicotine dependence, unspecified, uncomplicated] Onset: 4 Chronic Substance-related disorders (1 source) Cigarette smoker ; Translations: [Cigarette Smoker] Episodic Thyroid disorders (20 sources) Hypothyroidism; Translations: [Hypothyroidism, unspecified] Onset: 7 06-29-2016 Chronic Unclassified (15 sources) Acute appendicitis with localized peritonitis and gangrene, without perforation; Translations: [Acute appendicitis with localized peritonitis and gangrene, without perforation or abscess] Onset: 9 09-15-2018 Unclassified (2 sources) Infrarenal abdominal aortic aneurysm, ruptured; Translations: [Infrarenal abdominal aortic aneurysm, ruptured] Onset: 4 Unclassified (4 sources) Abdominal aortic aneurysm, ruptured, unspecified; Translations: [Abdominal aortic aneurysm, ruptured, unspecified] Onset: 4 Unclassified (3 sources) Juxtarenal abdominal aortic aneurysm, ruptured; Translations: [Juxtarenal abdominal aortic aneurysm, ruptured] Onset: 4 Unclassified (2 sources) RUPTURED AAA Onset: 4 Unclassified (1 source) Low back pain, unspecified; Translations: [Low back pain, unspecified] Onset: 4 Urinary tract infections (10 sources) Urinary tract infectious disease; Translations: [Urinary tract infection, site not specified] Onset: 5 04-19-2024 Episodic Past or Other Problems Problem Classification Problem Date Documented Da te Episodic/Chronic Appendicitis and other appendiceal conditions (20 sources) Acute appendicitis; Translations: [Acute appendicitis with localized peritonitis and gangrene, without perforation] Onset: 09-15-2018 Resolved: 08-15-2022 09-15-2018 Episodic Complication of device; implant or graft (20 sources) Disorder of vascular graft; 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, sequela] Onset: 01-19-2024 01-19-2024 Episodic Fever of unknown origin (1 source) Fever, unspecified; Translations: [Fever, unspecified] Onset: 06-11-2024 Episodic Mood disorders (10 sources) Mood disorders Onset: 06-06-2022 Resolved: 11-28-2022 06-06-2022 Open wounds of head; neck; and trunk (20 sources) Open wound of abdomen; Translations: [Unspecified open wound of abdominal wall, unspecified quadrant without penetration into peritoneal cavity, initial encounter] Onset: 06-11-2024 08-06-2024 Episodic Other circulatory disease (5 sources) Orthostatic hypotension; Translations: [Orthostatic hypotension] Onset: 11-02-2023 11-02-2023 Episodic Other circulatory disease (2 sources) Orthostatic hypotension; Translations: [Orthostatic hypotension] Onset: 11-02-2023 Episodic Other circulatory disease (2 sources) Hypotension, unspecified; Translations: [Hypotension, unspecified] Onset: 10-09-2023 Episodic Other circulatory disease (2 sources) Other disorder of circulatory system; Translations: [Other disorder of circulatory system] Onset: 11-28-2023 Episodic Other circulatory disease (1 source) Personal history of other diseases of the circulatory system; Translations: [Personal history of other diseases of the circulatory system] Onset: 06-11-2024 Episodic Other connective tissue disease (3 sources) Other symptoms and signs involving the musculoskeletal system; Translations: [Other musculoskeletal symptoms referable to limbs] Onset: 10-09-2023 08-24-2023 Episodic Other diseases of kidney and ureters (4 sources) Disorder of kidney and ureter, unspecified; Translations: [Disorder of kidney and ureter, unspecified] Onset: 12-26-2023 Episodic Other lower respiratory disease (2 sources) Solitary pulmonary nodule; Translations: [Solitary pulmonary nodule] Onset: 10-09-2023 Episodic Other nervous system disorders (2 sources) Paresthesia of skin; Translations: [Paresthesia of skin] Onset: 10-09-2023 Episodic Other non-traumatic joint disorders (20 sources) Hip pain; Translations: [Pain in right hip] Onset: 04-08-2019 04-08-2019 Episodic Other skin disorders (1 source) Changes in skin texture; Translations: [Changes in skin texture] Onset: 06-11-2024 Episodic Phlebitis; thrombophlebitis and thromboembolism (20 sources) Acute deep venous thrombosis of left axillary vein; Translations: [Acute embolism and thrombosis of left axillary vein] Onset: 06-10-2022 Episodic Residual codes; unclassified (3 sources) Other specified postprocedural states; Translations: [Other specified postprocedural states] Onset: 11-16-2023 Episodic Spondylosis; intervertebral disc disorders; other back problems (10 sources) Lumbago with sciatica; Translations: [Lumbago with sciatica, right side] Onset: 07-04-2023 07-04-2023 Episodic Syncope (12 sources) Syncope and collapse; Translations: [Near syncope] Onset: 10-09-2023 Episodic Unclassified (2 sources) Infrarenal abdominal aortic aneurysm, ruptured; Translations: [Infrarenal abdominal aortic aneurysm, ruptured] Onset: 10-09-2023 Unclassified (2 sources) Abdominal aortic aneurysm, ruptured, unspecified; Translations: [Abdominal aortic aneurysm, ruptured, unspecified] Onset: 11-02-2023 Unclassified (3 sources) Juxtarenal abdominal aortic aneurysm, ruptured; Translations: [Juxtarenal abdominal aortic aneurysm, ruptured] Onset: 12-26-2023 Unclassified (1 source) Low back pain, unspecified; Translations: [Low back pain, unspecified] Onset: 09-26-2023 Results Test Name Value Interpretation Reference Range Facility CBC-Complete Blood Cnt No Di ffon 10-30-2024 Erythrocyte distribution width (RBC) [Ratio] 17.0 % High 11.6-14.6 [facility] Comment on above: Performed By: #### L 100.0500, L500.4050 ####[facility] [address] [place], [address] Hematocrit (Bld) [Volume fraction] 34.9 % Low 37-47 [facility] Comment on above: Performed By: #### L 100.0500, L500.4050 ####[facility] [address] [place], [address] Hemoglobin (Bld) [Mass/Vol] 10.6 g/dL Low 12.0-15.0 [facility] Comment on above: Performed By: #### L 100.0500, L500.4050 ####[facility] [address] [place], [address] MCH (RBC) [Entitic mass] 26.8 pg Low 27.0-32.0 [facility] Comment on above: Performed By: #### L 100.0500, L500.4050 ####[facility] [address] [place], [address] MCHC (RBC) [Mass/Vol] 30.4 g/dL Low 32-36 [facility] Comment on above: Performed By: #### L 100.0500, L500.4050 ####[facility] [address] [place], [address] MCV (RBC) [Entitic vol] 88.4 fL Normal 81-99 [facility] Comment on above: Performed By: #### L 100.0500, L500.4050 ####[facility] [address] [place], [address] Platelet mean volume (Bld) [Entitic vol] 11.2 fL Normal 6.2-12.0 [facility] Comment on above: Performed By: #### L 100.0500, L500.4050 ####[facility] [address] [place], [address] Platelets (Bld) [#/Vol] 172 10*3/uL Normal 150-450 [facility] Comment on above: Performed By: #### L 100.0500, L500.4050 ####[facility] [address] [place], [address] RBC (Bld) [#/Vol] 3.95 10*6/uL Low 4.2-5.4 [facility] Comment on above: Performed By: #### L 100.0500, L500.4050 ####[facility] [address] [place], [address] RDW SD 55.4 fl High 35.1-43.9 [facility] Comment on above: Performed By: #### L 100.0500, L500.4050 ####[facility] [address] [place], [address] WBC (Bld) [#/Vol] 5.7 10*3/uL Normal 4.4-11.0 [facility] Comment on above: Performed By: #### L 100.0500, L500.4050 ####[facility] [address] [place], [address] Comprehensive Metabolic Prof [facility] 10-30-2024 Albumin [Mass/Vol] 2.9 g/dL Low 3.4-4.8 [facility] Comment on above: Performed By: #### L 100.0500, L500.4050 ####[facility] [address] [place], [address] Albumin/Globulin [Mass ratio] 0.8 {ratio} Low 0.9-2.4 [facility] Comment on above: Performed By: #### L 100.0500, L500.4050 ####[facility] [address] [place], [address] ALK PHOS 172 U/L High 35-104 [facility] Comment on above: Performed By: #### L 100.0500, L500.4050 ####[facility] [address] [place], [address] ALT [Catalytic activity/Vol] 173 U/L High <=34 [facility] Comment on above: Performed By: #### L 100.0500, L500.4050 ####[facility] [address] [place], [address] AST [Catalytic activity/Vol] 196 U/L High <=31 [facility] Comment on above: Performed By: #### L 100.0500, L500.4050 ####[facility] [address] [place], [address] Bilirubin [Mass/Vol] 0.26 mg/dL Normal 0.00-1.30 [facility] Comment on above: Performed By: #### L 100.0500, L500.4050 ####[facility] [address] [place], [address] BUN/CRE 44.3 RATIO High 10-20 [facility] Comment on above: Performed By: #### L 100.0500, L500.4050 ####[facility] [address] [place], [address] Calcium [Mass/Vol] 10.9 mg/dL Normal 7.6-11.0 [facility] Comment on above: Performed By: #### L 100.0500, L500.4050 ####[facility] [address] [place], [address] Chloride [Moles/Vol] 93 mmol/L Low 98-108 [facility] Comment on above: Performed By: #### L 100.0500, L500.4050 ####[facility] [address] [place], [address] CO2 [Moles/Vol] 30.0 mmol/L Normal 21.0-32.0 [facility] Comment on above: Performed By: #### L 100.0500, L500.4050 ####[facility] [address] [place], [address] Creatinine [Mass/Vol] 1.57 mg/dL High 0.70-1.20 [facility] Comment on above: Performed By: #### L 100.0500, L500.4050 ####[facility] [address] [place], [address] GAP 11 Normal 5-15 [facility] Comment on above: Performed By: #### L 100.0500, L500.4050 ####[facility] [address] [place], [address] GFR/1.73 sq M.predicted among non-blacks MDRD (S/P/Bld) [Vol rate/Area] 37 mL/min/{1.73_m2} Low >60 [facility] Comment on above: Result Comment: mL/m in/1.73m2 CKD-EPI Creatinine Equation (2020) Performed By: #### L 100.0500, L500.4050 ####[facility] [address] [place], [address] Globulin (S) [Mass/Vol] 3.8 g/dL Normal 2.2-4.2 [facility] Comment on above: Performed By: #### L 100.0500, L500.4050 ####[facility] [address] [place], [address] Glucose [Mass/Vol] 109 mg/dL High 70-99 [facility] Comment on above: Performed By: #### L 100.0500, L500.4050 ####[facility] [address] [place], [address] Potassium [Moles/Vol] 3.3 mmol/L Normal 3.3-5.1 [facility] Comment on above: Performed By: #### L 100.0500, L500.4050 ####[facility] [address] [place], [address] Sodium [Moles/Vol] 133 mmol/L Normal 133-145 [facility] Comment on above: Performed By: #### L 100.0500, L500.4050 ####[facility] [address] [place], [address] T PROT 6.7 g/dL Normal 5.9-8.4 [facility] Comment on above: Performed By: #### L 100.0500, L500.4050 ####[facility] [address] [place], [address] Urea nitrogen [Mass/Vol] 70 mg/dL High - [facility] Comment on above: Performed By: #### L 100.0500, L500.4050 ####[facility] [address] [place], [address] Anion gap in Serum or Plasma Ordered By: Millie Massey on 09-23-2024 Anion gap [Moles/Vol] 13 mmol/L 5-15 [facility] BUN/creatinine ratioOrdered By: Millie Massey on 09-23-2024 Urea nitrogen/Creatinine [Mass ratio] 39.5 mg/mg High - [facility] Basic Metabolic Profile (BMP )on 09-23-2024 BUN/CRE 39.5 RATIO High - [facility] Comment on above: Order Comment: 206.1 Performed By: #### L 500.2500 ####[facility] [address] [place], [address] Calcium [Mass/Vol] 9.4 mg/dL Normal 7.6-11.0 [facility] Comment on above: Order Comment: 206.1 Performed By: #### L 500.2500 ####[facility] [address] [place], [address] Chloride [Moles/Vol] 94 mmol/L Low 98-108 [facility] Comment on above: Order Comment: 206.1 Performed By: #### L 500.2500 ####[facility] [address] [place], [address] CO2 [Moles/Vol] 23.4 mmol/L Normal 21.0-32.0 [facility] Comment on above: Order Comment: . Performed By: #### L 500.2500 ####[facility] [address] [place], [address] Creatinine [Mass/Vol] 1.42 mg/dL High 0.70-1.20 [facility] Comment on above: Order Comment: . Performed By: #### L 500.2500 ####[facility] [address] [place], [address] GAP 13 Normal 5-15 [facility] Comment on above: Order Comment: Performed By: #### L 500.2500 ####[facility] [address] [place], [address] GFR/1.73 sq M.predicted among non-blacks MDRD (S/P/Bld) [Vol rate/Area] 42 mL/min/{1.73_m2} Low >60 [facility] Comment on above: Order Comment: Result Comment: mL/m in/1.73m2 CKD-EPI Creatinine Equation (2020) Performed By: #### L 500.2500 ####[facility] [address] [place], [address] Glucose [Mass/Vol] 98 mg/dL Normal 70-99 [facility] Comment on above: Order Comment: Performed By: #### L 500.2500 ####[facility] [address] [place], [address] Potassium [Moles/Vol] 5.1 mmol/L Normal 3.3-5.1 [facility] Comment on above: Order Comment: Result Comment: Hemo lysis present, Results??could be affected.?? Performed By: #### L 500.2500 ####[facility] [address] [place], [address] Sodium [Moles/Vol] 131 mmol/L Low 133-145 [facility] Comment on above: Order Comment: 206.1 Performed By: #### L 500.2500 ####[facility] [address] [place], [place], [address] Urea nitrogen [Mass/Vol] 56 mg/dL High 4-19 [facility] Comment on above: Order Comment: 206.1 Performed By: #### L 500.2500 ####[facility] [address] [place], [address] Carbon dioxide, total [Moles /volume] in Central venous bloodOrdered By: Millie Massey on 09-23-2024 CO2 [Moles/Vol] 23.4 mmol/L 21.0-32.0 [facility] Chloride assayOrdered By: Carter Massey on 09-23-2024 Chloride [Moles/Vol] 94 mmol/L Low 98-108 [facility] Glomerular filtration rate ( GFR) estimation/1.73 sq m using serum, plasma, or whole bOrdered By: Millie Massey on 09-23-2024 GFR/1.73 sq M.predicted among non-blacks MDRD (S/P/Bld) [Vol rate/Area] 42 mL/min/{1.73_m2} Low >60 [facility] Potassium measurement (mass/ volume)Ordered By: Millie Massey on 09-23-2024 Potassium (Unsp spec) [Mass/Vol] 5.1 mmol/L 3.3-5.1 [facility] Serum creatinine measurement (mass/volume)Ordered By: Millie Massey on 09-23-2024 Creatinine [Mass/Vol] 1.42 mg/dL High 0.70-1.20 [facility] Serum glucose measurement (m ass/volume)Ordered By: Millie Massey on 09-23-2024 Glucose [Mass/Vol] 98 mg/dL 70-99 [facility] Serum or plasma calcium megan urement (mass/volume)Ordered By: Millie Massey on 09-23-2024 Calcium [Mass/Vol] 9.4 mg/dL 7.6-11.0 [facility] Serum or plasma urea nitroge n measurement (mass/volume)Ordered By: Millie Massey on 09-23-2024 Urea nitrogen [Mass/Vol] 56 mg/dL High 4-19 [facility] Sodium levelOrdered By: Silvana Massey on 09-23-2024 Sodium [Moles/Vol] 131 mmol/L Low 133-145 [facility] Anion gap in Serum or Plasma Ordered By: Millie Massey on 09-18-2024 Anion gap [Moles/Vol] 11 mmol/L 5-15 [facility] BUN/creatinine ratioOrdered By: Millie Massey on 09-18-2024 Urea nitrogen/Creatinine [Mass ratio] 39.3 mg/mg High 10-20 [facility] Bilirubin, totalOrdered By: Millie Massey on 09-18-2024 Bilirubin [Mass/Vol] 0.31 mg/dL 0.00-1.30 [facility] Carbon dioxide, total [Moles /volume] in Central venous bloodOrdered By: Millie Massey on 09-18-2024 CO2 [Moles/Vol] 28.1 mmol/L 21.0-32.0 [facility] Chloride assayOrdered By: Carter Massey on 09-18-2024 Chloride [Moles/Vol] 94 mmol/L Low 98-108 [facility] Comprehensive Metabolic Prof ilon 09-18-2024 Albumin [Mass/Vol] 2.9 g/dL Low 3.4-4.8 [facility] Comment on above: Order Comment: 200 Performed By: #### L 500.4050 ####[facility] [address] [place], [place], [id number] Albumin/Globulin [Mass ratio] 0.7 {ratio} Low 0.9-2.4 [facility] Comment on above: Order Comment: 200 Performed By: #### L 500.4050 ####[facility] [address] [place], [address] ALK PHOS 117 U/L High 35-104 [facility] Comment on above: Order Comment: 200 Performed By: #### L 500.4050 ####[facility] [address] [place], [address] ALT [Catalytic activity/Vol] 63 U/L High <=34 [facility] Comment on above: Order Comment: 200 Performed By: #### L 500.4050 ####[facility] [address] [place], [address] AST [Catalytic activity/Vol] 76 U/L High <=31 [facility] Comment on above: Order Comment: 200 Performed By: #### L 500.4050 ####[facility] [address] [place], [address] Bilirubin [Mass/Vol] 0.31 mg/dL Normal 0.00-1.30 [facility] Comment on above: Order Comment: 200 Performed By: #### L 500.4050 ####[facility] [address] [place], [address] BUN/CRE 39.3 RATIO High 10-20 [facility] Comment on above: Order Comment: 200 Performed By: #### L 500.4050 ####[facility] [address] [place], [address] Calcium [Mass/Vol] 9.4 mg/dL Normal 7.6-11.0 [facility] [facility] Comment on above: Order Comment: 200 Performed By: #### L 500.4050 ####[facility] [address] [place], [address] Chloride [Moles/Vol] 94 mmol/L Low 98-108 [facility] Comment on above: Order Comment: 200 Performed By: #### L 500.4050 ####[facility] [address] [place], [address] CO2 [Moles/Vol] 28.1 mmol/L Normal 21.0-32.0 [facility] Comment on above: Order Comment: 200 Performed By: #### L 500.4050 ####[facility] [address] [place], [address] Creatinine [Mass/Vol] 1.24 mg/dL High 0.70-1.20 [facility] Comment on above: Order Comment: 200 Performed By: #### L 500.4050 ####[facility] [address] [place], [address] GAP 11 Normal 5-15 [facility] Comment on above: Order Comment: 200 Performed By: #### L 500.4050 ####[facility] [address] [place], [address] GFR/1.73 sq M.predicted among non-blacks MDRD (S/P/Bld) [Vol rate/Area] 49 mL/min/{1.73_m2} Low >60 [facility] Comment on above: Order Comment: 200 Result Comment: mL/m in/1.73m2 CKD-EPI Creatinine Equation (2020) Performed By: #### L 500.4050 ####[facility] [address] [place], [address] Globulin (S) [Mass/Vol] 4.4 g/dL High 2.2-4.2 [facility] Comment on above: Order Comment: 200 Performed By: #### L 500.4050 ####[facility] [address] [place], [address] Glucose [Mass/Vol] 167 mg/dL High 70-99 [facility] Comment on above: Order Comment: 200 Performed By: #### L 500.4050 ####[facility] [address] [place], [address] Potassium [Moles/Vol] 5.1 mmol/L Normal 3.3-5.1 [facility] Comment on above: Order Comment: 200 Performed By: #### L 500.4050 ####[facility] [address] [place], [address] Sodium [Moles/Vol] 133 mmol/L Normal 133-145 [facility] Comment on above: Order Comment: 200 Performed By: #### L 500.4050 ####[facility] [address] [place], [address] T PROT 7.3 g/dL Normal 5.9-8.4 [facility] Comment on above: Order Comment: 200 Performed By: #### L 500.4050 ####[facility] [address] [place], [address] Urea nitrogen [Mass/Vol] 49 mg/dL High 4-19 [facility] Comment on above: Order Comment: 200 Performed By: #### L 500.4050 ####[facility] [address] [place], [address] Glomerular filtration rate ( GFR) estimation/1.73 sq m using serum, plasma, or whole bOrdered By: Millie Massey on 09-18-2024 GFR/1.73 sq M.predicted among non-blacks MDRD (S/P/Bld) [Vol rate/Area] 49 mL/min/{1.73_m2} Low >60 [facility] No Panel InformationOrdered By: Millie Massey on 09-18-2024 76 U/L High <32 [facility] Potassium measurement (mass/ volume)Ordered By: Millie Massey on 09-18-2024 Potassium (Unsp spec) [Mass/Vol] 5.1 mmol/L 3.3-5.1 [facility] Serum creatinine measurement (mass/volume)Ordered By: Millie Massey on 09-18-2024 Creatinine [Mass/Vol] 1.24 mg/dL High 0.70-1.20 [facility] Serum globulin measurementOr dered By: Millie Massey on 09-18-2024 Globulin (S) [Mass/Vol] 4.4 g/dL High 2.2-4.2 [facility] Serum glucose measurement (m ass/volume)Ordered By: Millie Massey on 09-18-2024 Glucose [Mass/Vol] 167 mg/dL High 70-99 [facility] Serum or plasma alanine camargo otransferase (ALT) measurementOrdered By: Millie Massey on 09-18-2024 ALT [Catalytic activity/Vol] 63 U/L High <35 [facility] Serum or plasma albumin megan urement (mass/volume)Ordered By: Millie Massey on 09-18-2024 Albumin [Mass/Vol] 2.9 g/dL Low 3.4-4.8 [facility] Serum or plasma albumin/glob ulin mass ratioOrdered By: Millie Massey on 09-18-2024 Albumin/Globulin [Mass ratio] 0.7 {ratio} Low 0.9-2.4 [facility] Serum or plasma alkaline susan sphatase measurementOrdered By: Millie Massey on 09-18-2024 ALP [Catalytic activity/Vol] 117 U/L High 35-104 [facility] Serum or plasma calcium megan urement (mass/volume)Ordered By: Millie Massey on 09-18-2024 Calcium [Mass/Vol] 9.4 mg/dL 7.6-11.0 [facility] Serum or plasma urea nitroge n measurement (mass/volume)Ordered By: Millie Massey on 09-18-2024 Urea nitrogen [Mass/Vol] 49 mg/dL High 4-19 [facility] Sodium levelOrdered By: Silvana Massey on 09-18-2024 Sodium [Moles/Vol] 133 mmol/L 133-145 [facility] Total proteinOrdered By: Lesli Massey on 09-18-2024 Protein [Mass/Vol] 7.3 g/dL 5.9-8.4 [facility] Anion gap in Serum or Plasma Ordered By: Millie Massey on 09-16-2024 Anion gap [Moles/Vol] 12 mmol/L 5-15 [facility] BUN/creatinine ratioOrdered By: Millie Massey on 09-16-2024 Urea nitrogen/Creatinine [Mass ratio] 36.5 mg/mg High 10-20 [facility] Bilirubin, totalOrdered By: Millie Massey on 09-16-2024 Bilirubin [Mass/Vol] 0.42 mg/dL 0.00-1.30 [facility] CBC-Complete Blood Cnt No Di ffon 09-16-2024 Erythrocyte distribution width (RBC) [Ratio] 19.6 % High 11.6-14.6 [facility] Comment on above: Performed By: #### L 100.0500, L500.4050 ####[facility] [address] [place], [address] Hematocrit (Bld) [Volume fraction] 29.2 % Low 37-47 [facility] Comment on above: Performed By: #### L 100.0500, L500.4050 ####[facility] [address] [place], [address] Hemoglobin (Bld) [Mass/Vol] 8.4 g/dL Low 12.0-15.0 [facility] Comment on above: Performed By: #### L 100.0500, L500.4050 ####[facility] [address] [place], [address] MCH (RBC) [Entitic mass] 26.8 pg Low 27.0-32.0 [facility] Comment on above: Performed By: #### L 100.0500, L500.4050 ####[facility] [address] [place], [address] MCHC (RBC) [Mass/Vol] 28.8 g/dL Low 32-36 [facility] Comment on above: Performed By: #### L 100.0500, L500.4050 ####[facility] [address] [place], [address] MCV (RBC) [Entitic vol] 93.3 fL Normal 81-99 [facility] Comment on above: Performed By: #### L 100.0500, L500.4050 ####[facility] [address] [place], [address] Platelet mean volume (Bld) [Entitic vol] 10.4 fL Normal 6.2-12.0 [facility] Comment on above: Performed By: #### L 100.0500, L500.4050 ####[facility] [address] [place], [address] Platelets (Bld) [#/Vol] 180 10*3/uL Normal 150-450 [facility] Comment on above: Performed By: #### L 100.0500, L500.4050 ####[facility] [address] [place], [address] RBC (Bld) [#/Vol] 3.13 10*6/uL Low 4.2-5.4 [facility] Comment on above: Performed By: #### L 100.0500, L500.4050 ####[facility] [address] [place], [address] RDW SD 65.9 fl High 35.1-43.9 [facility] Comment on above: Performed By: #### L 100.0500, L500.4050 ####[facility] [address] [place], [address] WBC (Bld) [#/Vol] 7.5 10*3/uL Normal 4.4-11.0 [facility] Comment on above: Performed By: #### L 100.0500, L500.4050 ####[facility] [address] [place], [address] Carbon dioxide, total [Moles /volume] in Central venous bloodOrdered By: Millie Massey on 09-16-2024 CO2 [Moles/Vol] 24.4 mmol/L 21.0-32.0 [facility] Chloride assayOrdered By: Carter Massey on 09-16-2024 Chloride [Moles/Vol] 94 mmol/L Low 98-108 [facility] Comprehensive Metabolic Prof ilon 09-16-2024 Albumin [Mass/Vol] 2.8 g/dL Low 3.4-4.8 [facility] Comment on above: Performed By: #### L 100.0500, L500.4050 ####[facility] [address] [place], [address] Albumin/Globulin [Mass ratio] 0.6 {ratio} Low 0.9-2.4 [facility] Comment on above: Performed By: #### L 100.0500, L500.4050 ####[facility] [address] [place], [address] ALK PHOS 126 U/L High 35-104 [facility] Comment on above: Performed By: #### L 100.0500, L500.4050 ####[facility] [address] [place], [address] ALT [Catalytic activity/Vol] 93 U/L High <=34 [facility] Comment on above: Performed By: #### L 100.0500, L500.4050 ####[facility] [address] [place], [address] AST [Catalytic activity/Vol] 130 U/L High <=31 [facility] Comment on above: Result Comment: Hemo lysis present, Results??could be affected.?? Performed By: #### L 100.0500, L500.4050 ####[facility] [address] [place], [address] Bilirubin [Mass/Vol] 0.42 mg/dL Normal 0.00-1.30 [facility] Comment on above: Performed By: #### L 100.0500, L500.4050 ####[place] [facility] [address] [place], [address] BUN/CRE 36.5 RATIO High 10-20 [facility] Comment on above: Performed By: #### L 100.0500, L500.4050 ####[facility] [address] [place], [address] Calcium [Mass/Vol] 9.8 mg/dL Normal 7.6-11.0 [facility] Comment on above: Performed By: #### L 100.0500, L500.4050 ####[facility] [address] [place], [address] Chloride [Moles/Vol] 94 mmol/L Low 98-108 [facility] Comment on above: Performed By: #### L 100.0500, L500.4050 ####[facility] [address] [place], [address] CO2 [Moles/Vol] 24.4 mmol/L Normal 21.0-32.0 [facility] Comment on above: Performed By: #### L 100.0500, L500.4050 ####[facility] [address] [place], [address] Creatinine [Mass/Vol] 1.46 mg/dL High 0.70-1.20 [facility] Comment on above: Performed By: #### L 100.0500, L500.4050 ####[facility] [address] [place], [address] GAP 12 Normal 5-15 [facility] Comment on above: Performed By: #### L 100.0500, L500.4050 ####[facility] [address] [place], [address] GFR/1.73 sq M.predicted among non-blacks MDRD (S/P/Bld) [Vol rate/Area] 40 mL/min/{1.73_m2} Low >60 [facility] Comment on above: Result Comment: mL/m in/1.73m2 CKD-EPI Creatinine Equation (2020) Performed By: #### L 100.0500, L500.4050 ####[facility] [address] [place], [address] Globulin (S) [Mass/Vol] 5.0 g/dL High 2.2-4.2 [facility] Comment on above: Performed By: #### L 100.0500, L500.4050 ####[facility] [address] [place], [address] Glucose [Mass/Vol] 85 mg/dL Normal 70-99 [facility] Comment on above: Performed By: #### L 100.0500, L500.4050 ####[facility] [address] [place], [address] Potassium [Moles/Vol] 4.8 mmol/L Normal 3.3-5.1 [facility] Comment on above: Result Comment: Hemo lysis present, Results??could be affected.?? Performed By: #### L 100.0500, L500.4050 ####[facility] [address] [place], [address] Sodium [Moles/Vol] 130 mmol/L Low 133-145 [facility] Comment on above: Performed By: #### L 100.0500, L500.4050 ####[facility] [address] [place], [address] T PROT 7.7 g/dL Normal 5.9-8.4 [facility] Comment on above: Performed By: #### L 100.0500, L500.4050 ####[facility] [address] [place], [address] Urea nitrogen [Mass/Vol] 53 mg/dL High 4-19 [facility] Comment on above: Performed By: #### L 100.0500, L500.4050 ####[facility] [address] [place], [address] Erythrocyte distribution wid th ratioOrdered By: Millie Massey on 09-16-2024 Erythrocyte distribution width (RBC) [Ratio] 19.6 % High 11.6-14.6 [facility] Erythrocyte distribution wid th standard deviationOrdered By: Millie Massey on 09-16-2024 Erythrocyte distribution width (RBC) [Ratio] 65.9 fl High 35.1-43.9 [facility] Glomerular filtration rate ( GFR) estimation/1.73 sq m using serum, plasma, or whole bOrdered By: Millie Massey on 09-16-2024 GFR/1.73 sq M.predicted among non-blacks MDRD (S/P/Bld) [Vol rate/Area] 40 mL/min/{1.73_m2} Low >60 [facility] Hematocrit Auto (Bld) [Volum e fraction]Ordered By: Millie Massey on 09-16-2024 Hematocrit (Bld) [Volume fraction] 29.2 % Low 37-47 [facility] Hemoglobin measurementOrdere d By: Millie Massey on 09-16-2024 Hemoglobin (Bld) [Mass/Vol] 8.4 g/dL Low 12.0-15.0 [facility] MCV (mean corpuscular volume ) determinationOrdered By: Millie Massey on 09-16-2024 MCV (RBC) [Entitic vol] 93.3 fL 81-99 [facility] Mean corpuscular hemoglobin (MCH) determinationOrdered By: Millie Massey on 09-16-2024 MCH (RBC) [Entitic mass] 26.8 pg Low 27.0-32.0 [facility] No Panel InformationOrdered By: Millie Massey on 09-16-2024 130 U/L High <32 [facility] Platelet countOrdered By: Carter Massey on 09-16-2024 Platelets (Bld) [#/Vol] 180 10*3/uL 150-450 [facility] Potassium measurement (mass/ volume)Ordered By: Millie Massey on 09-16-2024 Potassium (Unsp spec) [Mass/Vol] 4.8 mmol/L 3.3-5.1 [facility] RBC Auto (Bld) [#/Vol]Ordere d By: Millie Massey on 09-16-2024 RBC (Bld) [#/Vol] 3.13 10*6/uL Low 4.2-5.4 [facility] Serum creatinine measurement (mass/volume)Ordered By: Millie Massey on 09-16-2024 Creatinine [Mass/Vol] 1.46 mg/dL High 0.70-1.20 [facility] Serum globulin measurementOr dered By: Millie Massey on 09-16-2024 Globulin (S) [Mass/Vol] 5.0 g/dL High 2.2-4.2 [facility] Serum glucose measurement (m ass/volume)Ordered By: Millie Massey on 09-16-2024 Glucose [Mass/Vol] 85 mg/dL 70-99 [facility] Serum or plasma alanine camargo otransferase (ALT) measurementOrdered By: Millie Massey on 09-16-2024 ALT [Catalytic activity/Vol] 93 U/L High <35 [facility] Serum or plasma albumin megan urement (mass/volume)Ordered By: Millie Massey on 09-16-2024 Albumin [Mass/Vol] 2.8 g/dL Low 3.4-4.8 [facility] Serum or plasma albumin/glob ulin mass ratioOrdered By: Millie Massey on 09-16-2024 Albumin/Globulin [Mass ratio] 0.6 {ratio} Low 0.9-2.4 [facility] Serum or plasma alkaline susan sphatase measurementOrdered By: Millie Massey on 09-16-2024 ALP [Catalytic activity/Vol] 126 U/L High 35-104 [facility] Serum or plasma calcium megan urement (mass/volume)Ordered By: Millie Massey on 09-16-2024 Calcium [Mass/Vol] 9.8 mg/dL 7.6-11.0 [facility] Serum or plasma urea nitroge n measurement (mass/volume)Ordered By: Millie Massey on 09-16-2024 Urea nitrogen [Mass/Vol] 53 mg/dL High 4- [facility] Sodium levelOrdered By: Silvana Massey on 09-16-2024 Sodium [Moles/Vol] 130 mmol/L Low 133-145 [facility] Total proteinOrdered By: Lesli Massey on 09-16-2024 Protein [Mass/Vol] 7.7 g/dL 5.9-8.4 [facility] White blood cell (WBC) count Ordered By: Millie Massey on 09-16-2024 WBC (Bld) [#/Vol] 7.5 10*3/uL 4.4-11.0 [facility] 12 Lead EKGon 09-15-2024 12 Lead EKG Normal [facility] Absolute lymphocyte countOrd ered By: Constantin Jain on 09-15-2024 Lymphocytes Auto (Unsp spec) [#/Vol] 0.64 10*3/uL Low 0.83-4.51 [facility] Absolute neutrophil countOrd ered By: Constantin Jain on 09-15-2024 Absolute neutrophil count 7.8 X10^3/uL High 2.0-7.7 [facility] Anion gap [Moles/Vol]Ordered By: Constantin Jain on 09-15-2024 Anion gap in Serum or Plasma 10 5-15 [facility] Anion gap in Serum or Plasma Ordered By: Constantin Jain on 09-15-2024 Anion gap [Moles/Vol] 10 mmol/L 5-15 [facility] Automated lymphocyte count a s percentage of total leukocytesOrdered By: Constantin Jain on 09-15-2024 Lymphocytes/100 WBC Auto (Unsp spec) 6.9 % Low 19-41 [facility] BUN/creatinine ratioOrdered By: Constantin Jain on 09-15-2024 Urea nitrogen/Creatinine [Mass ratio] 34.6 mg/mg High 10-20 [facility] BUN/creatinine ratio 34.6 RATIO High 10- [facility] Basic Metabolic Profile (BMP )on 09-15-2024 BUN/CRE 34.6 RATIO High 10-20 [facility] Comment on above: Performed By: #### L 500.2500, L501.4021, L100.0100 ####[facility] [address] [place], [address] Calcium [Mass/Vol] 9.1 mg/dL Normal 7.6-11.0 [facility] Comment on above: Performed By: #### L 500.2500, L501.4021, L100.0100 ####[facility] [address] [place], [address] Chloride [Moles/Vol] 96 mmol/L Low 98-108 [facility] Comment on above: Performed By: #### L 500.2500, L501.4021, L100.0100 ####[facility] [address] [place], [address] CO2 [Moles/Vol] 27.3 mmol/L Normal 21.0-32.0 [facility] Comment on above: Performed By: #### L 500.2500, L501.4021, L100.0100 ####[facility] [address] [place], [address] Creatinine [Mass/Vol] 1.14 mg/dL Normal 0.70-1.20 [facility] Comment on above: Performed By: #### L 500.2500, L501.4021, L100.0100 ####[facility] [address] [place], [address] ECRCL 44.59 ml/min Low 50-250 [facility] Comment on above: Performed By: #### L 500.2500, L501.4021, L100.0100 ####[facility] [address] [place], [address] GAP 10 Normal 5-15 [facility] Comment on above: Performed By: #### L 500.2500, L501.4021, L100.0100 ####[facility] [address] [place], [address] GFR/1.73 sq M.predicted among non-blacks MDRD (S/P/Bld) [Vol rate/Area] 54 mL/min/{1.73_m2} Low >60 [facility] Comment on above: Result Comment: mL/m in/1.73m2 CKD-EPI Creatinine Equation (2020) Performed By: #### L 500.2500, L501.4021, L100.0100 ####[facility] [address] [place], [address] Glucose [Mass/Vol] 103 mg/dL High 70-99 [facility] Comment on above: Performed By: #### L 500.2500, L501.4021, L100.0100 ####[facility] [address] [place], [address] Potassium [Moles/Vol] 4.3 mmol/L Normal 3.3-5.1 [facility] Comment on above: Result Comment: Hemo lysis present, Results??could be affected.?? Performed By: #### L 500.2500, L501.4021, L100.0100 ####[facility] [address] [place], [address] Sodium [Moles/Vol] 133 mmol/L Normal 133-145 [facility] Comment on above: Performed By: #### L 500.2500, L501.4021, L100.0100 ####[facility] [address] [place], [address] Urea nitrogen [Mass/Vol] 40 mg/dL High 4-19 [facility] Comment on above: Performed By: #### L 500.2500, L501.4021, L100.0100 ####[facility] [address] [place], [address] Basophil percentageOrdered B y: Constantin Jain on 09-15-2024 Basophils/100 WBC (Bld) 0.3 % 0-1 [facility] Basophil percentage 0.3 % 0-1 [facility] CBC W/Diff, Automatedon - 0-2024 Absolute Lymph 0.64 X10 3/uL Low 0.83-4.51 [facility] Comment on above: Performed By: #### L 500.2500, L501.4021, L100.0100 ####[facility] [address] [place], [address] Absolute Neut 7.8 X10 3/uL High 2.0-7.7 [facility] Comment on above: Performed By: #### L 500.2500, L501.4021, L100.0100 ####[facility] [address] [place], [address] Basophils/100 WBC (Bld) 0.3 % Normal 0-1 [facility] Comment on above: Performed By: #### L 500.2500, L501.4021, L100.0100 ####[facility] [address] [place], [address] Eosinophils/100 WBC (Bld) 1.5 % Normal 0-5 [facility] Comment on above: Performed By: #### L 500.2500, L501.4021, L100.0100 ####[facility] [address] [place], [address] Erythrocyte distribution width (RBC) [Ratio] 19.0 % High 11.6-14.6 [facility] Comment on above: Performed By: #### L 500.2500, L501.4021, L100.0100 ####[facility] [address] [place], [address] Hematocrit (Bld) [Volume fraction] 27.5 % Low 37-47 [facility] Comment on above: Performed By: #### L 500.2500, L501.4021, L100.0100 ####[facility] [address] [place], [address] Hemoglobin (Bld) [Mass/Vol] 8.3 g/dL Low 12.0-15.0 [facility] Comment on above: Performed By: #### L 500.2500, L501.4021, L100.0100 ####[facility] [address] [place], [address] IG% 1.100 High 0.0-0.9 [facility] Comment on above: Result Comment: IG% - Immature Granulocytes (promyelocytes, myelocytes andmetamyelocytes) > 1% indicates that a LEFT SHIFT is Present. Performed By: #### L 500.2500, L501.4021, L100.0100 ####[facility] [address] [place], [address] Lymphocytes/100 WBC (Bld) 6.9 % Low 19-41 [facility] Comment on above: Performed By: #### L 500.2500, L501.4021, L100.0100 ####[facility] [address] [place], [address] MCH (RBC) [Entitic mass] 27.5 pg Normal 27.0-32.0 [facility] Comment on above: Performed By: #### L 500.2500, L501.4021, L100.0100 ####[facility] [address] [place], [address] MCHC (RBC) [Mass/Vol] 30.2 g/dL Low 32-36 [facility] Comment on above: Performed By: #### L 500.2500, L501.4021, L100.0100 ####[facility] [address] [place], [address] MCV (RBC) [Entitic vol] 91.1 fL Normal 81-99 [facility] Comment on above: Performed By: #### L 500.2500, L501.4021, L100.0100 ####[facility] [address] [place], [address] Monocytes/100 WBC (Bld) 6.1 % Normal 0-10 [facility] Comment on above: Performed By: #### L 500.2500, L501.4021, L100.0100 ####[facility] [address] [place], [address] Neutrophils/100 WBC (Bld) 84.1 % High 47-70 [facility] Comment on above: Performed By: #### L 500.2500, L501.4021, L100.0100 ####[facility] [address] [place], [address] Nucleated RBC (Bld) [#/Vol] 0 10*3/uL Normal 0-5 [facility] Comment on above: Performed By: #### L 500.2500, L501.4021, L100.0100 ####[facility] [address] [place], [address] Platelet mean volume (Bld) [Entitic vol] 10.0 fL Normal 6.2-12.0 [facility] Comment on above: Performed By: #### L 500.2500, L501.4021, L100.0100 ####[facility] [address] [place], [address] Platelets (Bld) [#/Vol] 198 10*3/uL Normal 150-450 [facility] Comment on above: Performed By: #### L 500.2500, L501.4021, L100.0100 ####[facility] [address] [place], [address] RBC (Bld) [#/Vol] 3.02 10*6/uL Low 4.2-5.4 [facility] Comment on above: Performed By: #### L 500.2500, L501.4021, L100.0100 ####[facility] [address] [place], [address] RDW SD 62.7 fl High 35.1-43.9 [facility] Comment on above: Performed By: #### L 500.2500, L501.4021, L100.0100 ####[facility] [address] [place], [address] WBC (Bld) [#/Vol] 9.3 10*3/uL Normal 4.4-11.0 [facility] Comment on above: Performed By: #### L 500.2500, L501.4021, L100.0100 ####[facility] [address] [place], [address] Calcium [Mass/Vol]Ordered By : Constantin Jain on 09-15-2024 Serum or plasma calcium measurement (mass/volume) 9.1 mg/dL 7.6-11.0 [facility] Carbon dioxide, total [Moles /volume] in Central venous bloodOrdered By: Constantin Jain on 09-15-2024 CO2 [Moles/Vol] 27.3 mmol/L 21.0-32.0 [facility] Carbon dioxide, total [Moles/volume] in Central venous blood 27.3 mmol/L 21.0-32.0 [facility] Chest 1 View (Portable)on Chest 1 View (Portable) Normal [facility] Chloride assayOrdered By: Tacos Jain on 09-15-2024 Chloride [Moles/Vol] 96 mmol/L Low 98-108 [facility] Chloride assay 96 mmol/L Low 98-108 [facility] Creatinine [Mass/Vol]Ordered By: Constantin Jain on 09-15-2024 Serum creatinine measurement (mass/volume) 1.14 mg/dL 0.70-1.20 [facility] Emergency Department Summary on 09-15-2024 Emergency Department Summary Normal [facility] Eosinophil percentageOrdered By: Constantin Jain on 09-15-2024 Eosinophils/100 WBC (Bld) 1.5 % 0-5 [facility] Eosinophil percentage 1.5 % 0-5 [facility] Erythrocyte distribution wid th (RBC) [Ratio]Ordered By: Constantin Jain on 09-15-2024 Erythrocyte distribution width ratio 19.0 % High 11.6-14.6 [facility] Erythrocyte distribution width standard deviation 62.7 fl High 35.1-43.9 [facility] Erythrocyte distribution wid th ratioOrdered By: Constantin Jain on 09-15-2024 Erythrocyte distribution width (RBC) [Ratio] 19.0 % High 11.6-14.6 [facility] Erythrocyte distribution wid th standard deviationOrdered By: Constantin Jain on 09-15-2024 Erythrocyte distribution width (RBC) [Ratio] 62.7 fl High 35.1-43.9 [facility] Estimation of creatinine austen aranceOrdered By: Constantin Jain on 09-15-2024 Estimation of creatinine clearance 44.59 ml/min Low 50-250 [facility] GFR/1.73 sq M.predicted víctor g non-blacks MDRD (S/P/Bld) [Vol rate/Area]Ordered By: Constantin Jain on 09-15-2024 Glomerular filtration rate (GFR) estimation/1.73 sq m using serum, plasma, or whole b 54 Low >60 [facility] Glomerular filtration rate ( GFR) estimation/1.73 sq m using serum, plasma, or whole bOrdered By: Constantin Jain on 09-15-2024 GFR/1.73 sq M.predicted among non-blacks MDRD (S/P/Bld) [Vol rate/Area] 54 mL/min/{1.73_m2} Low >60 [facility] Glucose [Mass/Vol]Ordered By : Constantin Jain on 09-15-2024 Serum glucose measurement (mass/volume) 103 mg/dL High 70-99 [facility] Hematocrit Auto (Bld) [Volum e fraction]Ordered By: Constantin Jain on 09-15-2024 Hematocrit (Bld) [Volume fraction] 27.5 % Low 37-47 [facility] Automated blood hematocrit (percentage) 27.5 % Low 37-47 [facility] Hemoglobin measurementOrdere d By: Constantin Jain on 09-15-2024 Hemoglobin (Bld) [Mass/Vol] 8.3 g/dL Low 12.0-15.0 [facility] Hemoglobin measurement 8.3 g/dL Low 12.0-15.0 [facility] Immature granulocytes/100 WB C Auto (Bld)Ordered By: Constantin Jain on 09-15-2024 Immature granulocytes/100 WBC (Bld) 1.100 % High 0.0-0.9 [facility] Automated immature granulocyte percentage 1.100 % High 0.0-0.9 [facility] L499.0042on 09-15-2024 Trop T High Sen 273 ng/L Invalid Interpretation Code <=14 [facility] Comment on above: Result Comment: Crit ical Result(s) Called to Tu MEJIA (ER): Stoner:??Results read back by same. Performed By: #### L 499.0042 ####[facility] [address] [place], [address] L499.0043on 09-15-2024 Trop T High Sen Normal <=14 [facility] Comment on above: Result Comment: Canc elled via OM: Order cancelled - Patient discharged Performed By: #### L 499.0043 ####[facility] [address] [place], [address] L501.4021on 09-15-2024 Trop T High Sen 256 ng/L Invalid Interpretation Code <=14 [facility] Comment on above: Result Comment: Crit ical Result(s) Called at: 0515 by:??WALTER HAVEN TO LEXISCHAFER Results read back by same. Performed By: #### L 500.2500, L501.4021, L100.0100 ####[facility] [address] [place], [address] Lymphocytes Auto (Unsp spec) [#/Vol]Ordered By: Constantin Jain on 09-15-2024 Absolute lymphocyte count 0.64 X10^3/uL Low 0.83-4.51 [facility] Lymphocytes/100 WBC Auto (Un sp spec)Ordered By: Constantin Jain on 09-15-2024 Automated lymphocyte count as percentage of total leukocytes 6.9 % Low 19-41 [facility] MCV (RBC) [Entitic vol]Order ed By: Constantin Jain on 09-15-2024 MCV (mean corpuscular volume) determination 91.1 fL 81-99 [facility] MCV (mean corpuscular volume ) determinationOrdered By: Constantin Jain on 09-15-2024 MCV (RBC) [Entitic vol] 91.1 fL 81-99 [facility] Mean corpuscular hemoglobin (MCH) determinationOrdered By: Constantin Jain on 09-15-2024 MCH (RBC) [Entitic mass] 27.5 pg 27.0-32.0 [facility] Mean corpuscular hemoglobin (MCH) determination 27.5 pg 27.0-32.0 [facility] Mean corpuscular hemoglobin concentration (MCHC) determinationOrdered By: Constantin Jain on 09-15-2024 Mean corpuscular hemoglobin concentration (MCHC) determination 30.2 g/dL Low 32-36 [facility] Mean platelet volume determi nationOrdered By: Constantin Jain on 09-15-2024 Mean platelet volume determination 10.0 fl 6.2-12.0 [facility] Monocyte percentageOrdered B y: Constantin Jain on 09-15-2024 Monocytes/100 WBC (Bld) 6.1 % 0-10 [facility] Monocyte percentage 6.1 % 0-10 [facility] Neutrophil percentageOrdered By: Constantin Jain on 09-15-2024 Neutrophils/100 WBC (Bld) 84.1 % High 47-70 [facility] Neutrophil percentage 84.1 % High 47-70 [facility] Nucleated red blood cell per centageOrdered By: Constantin Jain on 09-15-2024 Nucleated red blood cell percentage 0 % 0-5 [facility] Platelet countOrdered By: Tacos Jain on 09-15-2024 Platelets (Bld) [#/Vol] 198 10*3/uL 150-450 [facility] Platelet count 198 K/mm3 150-450 [facility] Potassium (Unsp spec) [Mass/ Vol]Ordered By: Constantin Jain on 09-15-2024 Potassium measurement (mass/volume) 4.3 mmol/L 3.3-5.1 [facility] Potassium measurement (mass/ volume)Ordered By: Constantin aJin on 09-15-2024 Potassium (Unsp spec) [Mass/Vol] 4.3 mmol/L 3.3-5.1 [facility] RBC Auto (Bld) [#/Vol]Ordere d By: Constantin Jain on 09-15-2024 RBC (Bld) [#/Vol] 3.02 10*6/uL Low 4.2-5.4 [facility] Automated blood erythrocyte count 3.02 M/mm3 Low 4.2-5.4 [facility] Serum creatinine measurement (mass/volume)Ordered By: Constantin Jain on 09-15-2024 Creatinine [Mass/Vol] 1.14 mg/dL 0.70-1.20 [facility] Serum glucose measurement (m ass/volume)Ordered By: Constantin Jain on 09-15-2024 Glucose [Mass/Vol] 103 mg/dL High 70-99 [facility] Serum or plasma calcium megan urement (mass/volume)Ordered By: Constantin Jain on 09-15-2024 Calcium [Mass/Vol] 9.1 mg/dL 7.6-11.0 [facility] Serum or plasma urea nitroge n measurement (mass/volume)Ordered By: Constantin Jain on 09-15-2024 Urea nitrogen [Mass/Vol] 40 mg/dL High 4-19 [facility] Sodium levelOrdered By: Nile Jain on 09-15-2024 Sodium [Moles/Vol] 133 mmol/L 133-145 [facility] Sodium level 133 mmol/L 133-145 [facility] Troponin T.cardiac High sens itivity method [Mass/Vol]Ordered By: Constantin Jain on 09-15-2024 Troponin T.cardiac [Mass/volume] in Serum or Plasma by High sensitivity method 273 ng/L High <14 [facility] Troponin T.cardiac [Mass/volume] in Serum or Plasma by High sensitivity method 256 ng/L High <14 [facility] Troponin T.cardiac [Mass/vol ume] in Serum or Plasma by High sensitivity methodOrdered By: Constantin Jain on 09-15-2024 Troponin T.cardiac High sensitivity method [Mass/Vol] 273 ng/L High <14 [facility] Troponin T.cardiac High sensitivity method [Mass/Vol] 256 ng/L High <14 [facility] Urea nitrogen [Mass/Vol]Orde red By: Constantin Jain on 09-15-2024 Serum or plasma urea nitrogen measurement (mass/volume) 40 mg/dL High 4-19 [facility] White blood cell (WBC) count Ordered By: Constantin Jain on 09-15-2024 WBC (Bld) [#/Vol] 9.3 10*3/uL 4.4-11.0 [facility] White blood cell (WBC) count 9.3 K/mm3 4.4-11.0 [facility] ALP [Catalytic activity/Vol] Ordered By: Millie Massey on 09-09-2024 Serum or plasma alkaline phosphatase measurement 93 U/L 35-104 [facility] ALT [Catalytic activity/Vol] Ordered By: Millie Massey on 09-09-2024 Serum or plasma alanine aminotransferase (ALT) measurement 26 U/L <35 [facility] Albumin [Mass/Vol]Ordered By : Millie Massey on 09-09-2024 Serum or plasma albumin measurement (mass/volume) 2.4 g/dL Low 3.4-4.8 [facility] Albumin/Globulin [Mass ratio ]Ordered By: Millie Massey on 09-09-2024 Serum or plasma albumin/globulin mass ratio 0.6 RATIO Low 0.9-2.4 [facility] Anion gap [Moles/Vol]Ordered By: Millie Massey on 09-09-2024 Anion gap in Serum or Plasma 8 5-15 [facility] Anion gap in Serum or Plasma Ordered By: Millie Massey on 09-09-2024 Anion gap [Moles/Vol] 8 mmol/L 5-15 [facility] BUN/creatinine ratioOrdered By: Millie Massey on 09-09-2024 Urea nitrogen/Creatinine [Mass ratio] 36.3 mg/mg High 10-20 [facility] BUN/creatinine ratio 36.3 RATIO High 10-20 [facility] Bilirubin, totalOrdered By: Millie Massey on 09-09-2024 Bilirubin [Mass/Vol] 0.24 mg/dL 0.00-1.30 [facility] Bilirubin, total 0.24 mg/dL 0.00-1.30 [facility] CBC-Complete Blood Cnt No Di ffon 09-09-2024 Erythrocyte distribution width (RBC) [Ratio] 18.6 % High 11.6-14.6 [facility] Comment on above: Performed By: #### L 100.0500, L501.5200, L500.4050 ####[facility] [address] [place], [address] Hematocrit (Bld) [Volume fraction] 31.4 % Low 37-47 [facility] Comment on above: Performed By: #### L 100.0500, L501.5200, L500.4050 ####[facility] [address] [place], [address] Hemoglobin (Bld) [Mass/Vol] 9.4 g/dL Low 12.0-15.0 [facility] Comment on above: Performed By: #### L 100.0500, L501.5200, L500.4050 ####[facility] [address] [place], [address] MCH (RBC) [Entitic mass] 27.0 pg Normal 27.0-32.0 [facility] Comment on above: Performed By: #### L 100.0500, L501.5200, L500.4050 ####[facility] [address] [place], [address] MCHC (RBC) [Mass/Vol] 29.9 g/dL Low 32-36 [facility] Comment on above: Performed By: #### L 100.0500, L501.5200, L500.4050 ####[facility] [address] [place], [address] MCV (RBC) [Entitic vol] 90.2 fL Normal 81-99 [facility] Comment on above: Performed By: #### L 100.0500, L501.5200, L500.4050 ####[facility] [address] [place], [address] Platelet mean volume (Bld) [Entitic vol] 10.1 fL Normal 6.2-12.0 [facility] Comment on above: Performed By: #### L 100.0500, L501.5200, L500.4050 ####[facility] [address] [place], [address] Platelets (Bld) [#/Vol] 183 10*3/uL Normal 150-450 [facility] Comment on above: Performed By: #### L 100.0500, L501.5200, L500.4050 ####[facility] [address] [place], [address] RBC (Bld) [#/Vol] 3.48 10*6/uL Low 4.2-5.4 [facility] Comment on above: Performed By: #### L 100.0500, L501.5200, L500.4050 ####[facility] [address] [place], [address] RDW SD 61.3 fl High 35.1-43.9 [facility] Comment on above: Performed By: #### L 100.0500, L501.5200, L500.4050 ####[facility] [address] [place], [address] WBC (Bld) [#/Vol] 3.8 10*3/uL Low 4.4-11.0 [facility] Comment on above: Performed By: #### L 100.0500, L501.5200, L500.4050 ####[facility] [address] [place], [address] Calcium [Mass/Vol]Ordered By : Millie Massey on 09-09-2024 Serum or plasma calcium measurement (mass/volume) 8.8 mg/dL 7.6-11.0 [facility] Carbon dioxide, total [Moles /volume] in Central venous bloodOrdered By: Millie Massey on 09-09-2024 CO2 [Moles/Vol] 30.2 mmol/L 21.0-32.0 [facility] Carbon dioxide, total [Moles/volume] in Central venous blood 30.2 mmol/L 21.0-32.0 [facility] Chloride assayOrdered By: Carter Massey on 09-09-2024 Chloride [Moles/Vol] 96 mmol/L Low 98-108 [facility] Chloride assay 96 mmol/L Low 98-108 [facility] Comprehensive Metabolic Prof ilon 09-09-2024 Albumin [Mass/Vol] 2.4 g/dL Low 3.4-4.8 [facility] Comment on above: Performed By: #### L 100.0500, L501.5200, L500.4050 ####[facility] [address] [place], [address] Albumin/Globulin [Mass ratio] 0.6 {ratio} Low 0.9-2.4 [facility] Comment on above: Performed By: #### L 100.0500, L501.5200, L500.4050 ####[facility] [address] [place], [address] ALK PHOS 93 U/L Normal 35-104 [facility] Comment on above: Performed By: #### L 100.0500, L501.5200, L500.4050 ####[facility] [address] [place], [address] ALT [Catalytic activity/Vol] 26 U/L Normal <=34 [facility] Comment on above: Performed By: #### L 100.0500, L501.5200, L500.4050 ####[facility] [address] [place], [address] AST [Catalytic activity/Vol] 54 U/L High <=31 [facility] Comment on above: Performed By: #### L 100.0500, L501.5200, L500.4050 ####[facility] [address] [place], [address] Bilirubin [Mass/Vol] 0.24 mg/dL Normal 0.00-1.30 [facility] Comment on above: Performed By: #### L 100.0500, L501.5200, L500.4050 ####[facility] [address] [place], [address] BUN/CRE 36.3 RATIO High 10-20 [facility] Comment on above: Performed By: #### L 100.0500, L501.5200, L500.4050 ####[facility] [address] [place], [address] Calcium [Mass/Vol] 8.8 mg/dL Normal 7.6-11.0 [facility] Comment on above: Performed By: #### L 100.0500, L501.5200, L500.4050 ####[facility] [address] [place], [address] Chloride [Moles/Vol] 96 mmol/L Low 98-108 [facility] Comment on above: Performed By: #### L 100.0500, L501.5200, L500.4050 ####[facility] [address] [place], [address] CO2 [Moles/Vol] 30.2 mmol/L Normal 21.0-32.0 [facility] Comment on above: Performed By: #### L 100.0500, L501.5200, L500.4050 ####[facility] [address] [place], [address] Creatinine [Mass/Vol] 1.35 mg/dL High 0.70-1.20 [facility] Comment on above: Performed By: #### L 100.0500, L501.5200, L500.4050 ####[facility] [address] [place], [address] GAP 8 Normal 5-15 [facility] Comment on above: Performed By: #### L 100.0500, L501.5200, L500.4050 ####[facility] [address] [place], [address] GFR/1.73 sq M.predicted among non-blacks MDRD (S/P/Bld) [Vol rate/Area] 44 mL/min/{1.73_m2} Low >60 [facility] Comment on above: Result Comment: mL/m in/1.73m2 CKD-EPI Creatinine Equation (2020) Performed By: #### L 100.0500, L501.5200, L500.4050 ####[facility] [address] [place], [address] Globulin (S) [Mass/Vol] 3.7 g/dL Normal 2.2-4.2 [facility] Comment on above: Performed By: #### L 100.0500, L501.5200, L500.4050 ####[facility] [address] [place], [address] Glucose [Mass/Vol] 115 mg/dL High 70-99 [facility] Comment on above: Performed By: #### L 100.0500, L501.5200, L500.4050 ####[facility] [address] [place], [address] Potassium [Moles/Vol] 3.1 mmol/L Low 3.3-5.1 [facility] Comment on above: Performed By: #### L 100.0500, L501.5200, L500.4050 ####[facility] [address] [place], [address] Sodium [Moles/Vol] 133 mmol/L Normal 133-145 [facility] Comment on above: Performed By: #### L 100.0500, L501.5200, L500.4050 ####[facility] [address] [place], [address] T PROT 6.1 g/dL Normal 5.9-8.4 [facility] Comment on above: Performed By: #### L 100.0500, L501.5200, L500.4050 ####[facility] [address] [place], [address] Urea nitrogen [Mass/Vol] 49 mg/dL High 4-19 [facility] Comment on above: Performed By: #### L 100.0500, L501.5200, L500.4050 ####[facility] [address] [place], [address] Creatinine [Mass/Vol]Ordered By: Millie Massey on 09-09-2024 Serum creatinine measurement (mass/volume) 1.35 mg/dL High 0.70-1.20 [facility] Erythrocyte distribution wid th (RBC) [Ratio]Ordered By: Millie Massey on 09-09-2024 Erythrocyte distribution width ratio 18.6 % High 11.6-14.6 [facility] Erythrocyte distribution width standard deviation 61.3 fl High 35.1-43.9 [facility] Erythrocyte distribution wid th ratioOrdered By: Millie Massey on 09-09-2024 Erythrocyte distribution width (RBC) [Ratio] 18.6 % High 11.6-14.6 [facility] Erythrocyte distribution wid th standard deviationOrdered By: Millie Massey on 09-09-2024 Erythrocyte distribution width (RBC) [Ratio] 61.3 fl High 35.1-43.9 [facility] GFR/1.73 sq M.predicted víctor g non-blacks MDRD (S/P/Bld) [Vol rate/Area]Ordered By: Millie Massey on 09-09-2024 Glomerular filtration rate (GFR) estimation/1.73 sq m using serum, plasma, or whole b 44 Low >60 [facility] Glomerular filtration rate ( GFR) estimation/1.73 sq m using serum, plasma, or whole bOrdered By: Millie Massey on 09-09-2024 GFR/1.73 sq M.predicted among non-blacks MDRD (S/P/Bld) [Vol rate/Area] 44 mL/min/{1.73_m2} Low >60 [facility] Glucose [Mass/Vol]Ordered By : Millie Massey on 09-09-2024 Serum glucose measurement (mass/volume) 115 mg/dL High 70-99 [facility] Hematocrit Auto (Bld) [Volum e fraction]Ordered By: Millie Massey on 09-09-2024 Hematocrit (Bld) [Volume fraction] 31.4 % Low 37-47 [facility] Automated blood hematocrit (percentage) 31.4 % Low 37-47 [facility] Hemoglobin measurementOrdere d By: Millie Massey on 09-09-2024 Hemoglobin (Bld) [Mass/Vol] 9.4 g/dL Low 12.0-15.0 [facility] Hemoglobin measurement 9.4 g/dL Low 12.0-15.0 [facility] MCV (RBC) [Entitic vol]Order ed By: Millie Massey on 09-09-2024 MCV (mean corpuscular volume) determination 90.2 fL 81-99 [facility] MCV (mean corpuscular volume ) determinationOrdered By: Millie Massey on 09-09-2024 MCV (RBC) [Entitic vol] 90.2 fL 81-99 [facility] Magnesiumon 09-09-2024 Magnesium [Mass/Vol] 2.0 mg/dL Normal 1.5-2.2 [facility] Comment on above: Performed By: #### L 100.0500, L501.5200, L500.4050 ####[facility] [address] [place], [address] Magnesium (Unsp spec) [Mass/ Vol]Ordered By: Millie Massey on 09-09-2024 Magnesium measurement (mass/volume) 2.0 mg/dL 1.5-2.2 [facility] Magnesium measurement (mass/ volume)Ordered By: Millie Massey on 09-09-2024 Magnesium (Unsp spec) [Mass/Vol] 2.0 mg/dL 1.5-2.2 [facility] Mean corpuscular hemoglobin (MCH) determinationOrdered By: Millie Massey on 09-09-2024 MCH (RBC) [Entitic mass] 27.0 pg 27.0-32.0 [facility] Mean corpuscular hemoglobin (MCH) determination 27.0 pg 27.0-32.0 [facility] Mean corpuscular hemoglobin concentration (MCHC) determinationOrdered By: Millie Massey on 09-09-2024 Mean corpuscular hemoglobin concentration (MCHC) determination 29.9 g/dL Low 32-36 [facility] Mean platelet volume determi nationOrdered By: Millie Massey on 09-09-2024 Mean platelet volume determination 10.1 fl 6.2-12.0 [facility] No Panel InformationOrdered By: Millie Massey on 09-09-2024 54 U/L High <32 [facility] Platelet countOrdered By: Carter Massey on 09-09-2024 Platelets (Bld) [#/Vol] 183 10*3/uL 150-450 [facility] Platelet count 183 K/mm3 150-450 [facility] Potassium (Unsp spec) [Mass/ Vol]Ordered By: Millie Massey on 09-09-2024 Potassium measurement (mass/volume) 3.1 mmol/L Low 3.3-5.1 [facility] Potassium measurement (mass/ volume)Ordered By: Millie Massey on 09-09-2024 Potassium (Unsp spec) [Mass/Vol] 3.1 mmol/L Low 3.3-5.1 [facility] RBC Auto (Bld) [#/Vol]Ordere d By: Millie Massey on 09-09-2024 RBC (Bld) [#/Vol] 3.48 10*6/uL Low 4.2-5.4 [facility] Automated blood erythrocyte count 3.48 M/mm3 Low 4.2-5.4 [facility] Serum creatinine measurement (mass/volume)Ordered By: Millie Massey on 09-09-2024 Creatinine [Mass/Vol] 1.35 mg/dL High 0.70-1.20 [facility] Serum globulin measurementOr dered By: Millie Massey on 09-09-2024 Globulin (S) [Mass/Vol] 3.7 g/dL 2.2-4.2 [facility] Serum globulin measurement 3.7 g/dL 2.2-4.2 [facility] Serum glucose measurement (m ass/volume)Ordered By: Millie Massey on 09-09-2024 Glucose [Mass/Vol] 115 mg/dL High 70-99 [facility] Serum or plasma alanine camargo otransferase (ALT) measurementOrdered By: Millie Massey on 09-09-2024 ALT [Catalytic activity/Vol] 26 U/L <35 [facility] Serum or plasma albumin megan urement (mass/volume)Ordered By: Millie Massey on 09-09-2024 Albumin [Mass/Vol] 2.4 g/dL Low 3.4-4.8 [facility] Serum or plasma albumin/glob ulin mass ratioOrdered By: Millie Massey on 09-09-2024 Albumin/Globulin [Mass ratio] 0.6 {ratio} Low 0.9-2.4 [facility] Serum or plasma alkaline susan sphatase measurementOrdered By: Millie Massey on 09-09-2024 ALP [Catalytic activity/Vol] 93 U/L 35-104 [facility] Serum or plasma calcium megan urement (mass/volume)Ordered By: Millie Massey on 09-09-2024 Calcium [Mass/Vol] 8.8 mg/dL 7.6-11.0 [facility] Serum or plasma urea nitroge n measurement (mass/volume)Ordered By: Millie Massey on 09-09-2024 Urea nitrogen [Mass/Vol] 49 mg/dL High 09-14 [facility] Sodium levelOrdered By: Silvana Massey on 09-09-2024 Sodium [Moles/Vol] 133 mmol/L 133-145 [facility] Sodium level 133 mmol/L 133-145 [facility] Total proteinOrdered By: Lesli Massey on 09-09-2024 Protein [Mass/Vol] 6.1 g/dL 5.9-8.4 [facility] Total protein 6.1 g/dL 5.9-8.4 [facility] Urea nitrogen [Mass/Vol]Orde red By: Millie Massey on 09-09-2024 Serum or plasma urea nitrogen measurement (mass/volume) 49 mg/dL High - [facility] White blood cell (WBC) count Ordered By: Millie Massey on 09-09-2024 WBC (Bld) [#/Vol] 3.8 10*3/uL Low 4.4-11.0 [facility] White blood cell (WBC) count 3.8 K/mm3 Low 4.4-11.0 [facility] ALP [Catalytic activity/Vol] Ordered By: Millie Massey on 09-02-2024 Serum or plasma alkaline phosphatase measurement 81 U/L 35-104 [facility] ALT [Catalytic activity/Vol] Ordered By: Millie Massey on 09-02-2024 Serum or plasma alanine aminotransferase (ALT) measurement 16 U/L <35 [facility] Albumin [Mass/Vol]Ordered By : Millie Massey on 09-02-2024 Serum or plasma albumin measurement (mass/volume) 2.3 g/dL Low 3.4-4.8 [facility] Albumin/Globulin [Mass ratio ]Ordered By: Millie Massey on 09-02-2024 Serum or plasma albumin/globulin mass ratio 0.6 RATIO Low 0.9-2.4 [facility] Anion gap [Moles/Vol]Ordered By: Millie Massey on 09-02-2024 Anion gap in Serum or Plasma 10 5-15 [facility] Anion gap in Serum or Plasma Ordered By: Millie Massey on 09-02-2024 Anion gap [Moles/Vol] 10 mmol/L 5-15 [facility] BUN/creatinine ratioOrdered By: Millie Massey on 09-02-2024 Urea nitrogen/Creatinine [Mass ratio] 22.5 mg/mg High 10-20 [facility] BUN/creatinine ratio 22.5 RATIO High 10-20 [facility] Bilirubin, totalOrdered By: Millie Massey on 09-02-2024 Bilirubin [Mass/Vol] 0.27 mg/dL Normal 0.00-1.30 [facility] Comment on above: Order Comment: Performed By: #### L 501.5200, L500.4050, L100.0500, L100.4500 ####[facility] [address] [place], [address] Bilirubin, total 0.27 mg/dL 0.00-1.30 [facility] Blood manual differential co mment interpretation (narrative result)Ordered By: Millie Massey on 09-02-2024 Manual differential comment Horace (Bld) [Interp] See comment [facility] CBC-Complete Blood Cnt No Di ffon 09-02-2024 Erythrocyte distribution width (RBC) [Ratio] 22.0 % High 11.6-14.6 [facility] Comment on above: Order Comment: Performed By: #### L 501.5200, L500.4050, L100.0500, L100.4500 ####[facility] [address] [place], [address] Hematocrit (Bld) [Volume fraction] 34.9 % Low 37-47 [facility] Comment on above: Order Comment: Performed By: #### L 501.5200, L500.4050, L100.0500, L100.4500 ####[facility] [address] [place], [address] Hemoglobin (Bld) [Mass/Vol] 10.7 g/dL Low 12.0-15.0 [facility] Comment on above: Order Comment: - Performed By: #### L 501.5200, L500.4050, L100.0500, L100.4500 ####[facility] [address] [place], [address] MCH (RBC) [Entitic mass] 28.0 pg Normal 27.0-32.0 [facility] Comment on above: Order Comment: - Performed By: #### L 501.5200, L500.4050, L100.0500, L100.4500 ####[facility] [address] [place], [address] MCHC (RBC) [Mass/Vol] 30.7 g/dL Low 32-36 [facility] Comment on above: Order Comment: - Performed By: #### L 501.5200, L500.4050, L100.0500, L100.4500 ####[facility] [address] [place], [address] MCV (RBC) [Entitic vol] 91.4 fL Normal 81-99 [facility] Comment on above: Order Comment: Performed By: #### L 501.5200, L500.4050, L100.0500, L100.4500 ####[facility] [address] [place], [address] Platelet mean volume (Bld) [Entitic vol] 10.2 fL Normal 6.2-12.0 [facility] Comment on above: Order Comment: - Performed By: #### L 501.5200, L500.4050, L100.0500, L100.4500 ####[facility] [address] [place], [address] Platelets (Bld) [#/Vol] 178 10*3/uL Normal 150-450 [facility] Comment on above: Order Comment: - Performed By: #### L 501.5200, L500.4050, L100.0500, L100.4500 ####[facility] [address] [place], [address] RBC (Bld) [#/Vol] 3.82 10*6/uL Low 4.2-5.4 [facility] Comment on above: Order Comment: - Performed By: #### L 501.5200, L500.4050, L100.0500, L100.4500 ####[facility] [address] [place], [address] RDW SD 72.8 fl High 35.1-43.9 [facility] Comment on above: Order Comment: - Performed By: #### L 501.5200, L500.4050, L100.0500, L100.4500 ####[facility] [address] [place], [address] WBC (Bld) [#/Vol] 8.0 10*3/uL Normal 4.4-11.0 [facility] Comment on above: Order Comment: Performed By: #### L 501.5200, L500.4050, L100.0500, L100.4500 ####[facility] [address] [place], [address] Calcium [Mass/Vol]Ordered By : Millie Massey on 09-02-2024 Serum or plasma calcium measurement (mass/volume) 7.8 mg/dL 7.6-11.0 [facility] Carbon dioxide, total [Moles /volume] in Central venous bloodOrdered By: Millie Massey on 09-02-2024 CO2 [Moles/Vol] 25.9 mmol/L Normal 21.0-32.0 [facility] Comment on above: Order Comment: Performed By: #### L 501.5200, L500.4050, L100.0500, L100.4500 ####[facility] [address] [place], [address] Carbon dioxide, total [Moles/volume] in Central venous blood 25.9 mmol/L 21.0-32.0 [facility] Chloride assayOrdered By: Carter Massey on 09-02-2024 Chloride [Moles/Vol] 96 mmol/L Low 98-108 [facility] Comment on above: Order Comment: - Performed By: #### L 501.5200, L500.4050, L100.0500, L100.4500 ####[facility] [address] [place], [address] Chloride assay 96 mmol/L Low 98-108 [facility] Comprehensive Metabolic Prof ilon 09-02-2024 ALK PHOS 81 U/L Normal 35-104 [facility] Comment on above: Order Comment: Performed By: #### L 501.5200, L500.4050, L100.0500, L100.4500 ####[facility] [address] [place], [address] AST [Catalytic activity/Vol] 47 U/L High <=31 [facility] Comment on above: Order Comment: - Performed By: #### L 501.5200, L500.4050, L100.0500, L100.4500 ####[facility] [address] [place], [address] BUN/CRE 22.5 RATIO High 10-20 [facility] Comment on above: Order Comment: - Performed By: #### L 501.5200, L500.4050, L100.0500, L100.4500 ####[facility] [address] [place], [address] GAP 10 Normal 5-15 [facility] Comment on above: Order Comment: - Performed By: #### L 501.5200, L500.4050, L100.0500, L100.4500 ####[facility] [address] [place], [address] Potassium [Moles/Vol] 3.7 mmol/L Normal 3.3-5.1 [facility] Comment on above: Order Comment: Performed By: #### L 501.5200, L500.4050, L100.0500, L100.4500 ####[facility] [address] [place], [address] T PROT 5.9 g/dL Normal 5.9-8.4 [facility] Comment on above: Order Comment: Performed By: #### L 501.5200, L500.4050, L100.0500, L100.4500 ####[facility] [address] [place], [address] Creatinine [Mass/Vol]Ordered By: Millie Massey on 09-02-2024 Serum creatinine measurement (mass/volume) 0.91 mg/dL 0.70-1.20 [facility] Differential Commenton 09-02 SMEAR COMMENT Normal [facility] Comment on above: Order Comment: Result Comment: ANIS OCYTOSIS 1+ Performed By: #### L 501.5200, L500.4050, L100.0500, L100.4500 ####[facility] [address] [place], [address] Erythrocyte distribution wid th (RBC) [Ratio]Ordered By: Millie Massey on 09-02-2024 Erythrocyte distribution width ratio 22.0 % High 11.6-14.6 [facility] Erythrocyte distribution width standard deviation 72.8 fl High 35.1-43.9 [facility] Erythrocyte distribution wid th ratioOrdered By: Millie Massey on 09-02-2024 Erythrocyte distribution width (RBC) [Ratio] 22.0 % High 11.6-14.6 [facility] Erythrocyte distribution wid th standard deviationOrdered By: Millie Massey on 09-02-2024 Erythrocyte distribution width (RBC) [Ratio] 72.8 fl High 35.1-43.9 [facility] GFR/1.73 sq M.predicted víctor g non-blacks MDRD (S/P/Bld) [Vol rate/Area]Ordered By: Millie Massey on 09-02-2024 Glomerular filtration rate (GFR) estimation/1.73 sq m using serum, plasma, or whole b 71 >60 [facility] Glomerular filtration rate ( GFR) estimation/1.73 sq m using serum, plasma, or whole bOrdered By: Millie Massey on 09-02-2024 GFR/1.73 sq M.predicted among non-blacks MDRD (S/P/Bld) [Vol rate/Area] 71 mL/min/{1.73_m2} Normal >60 [facility] Comment on above: Order Comment: Result Comment: mL/m in/1.73m2 CKD-EPI Creatinine Equation (2020) Performed By: #### L 501.5200, L500.4050, L100.0500, L100.4500 ####[facility] [address] [place], [address] Glucose [Mass/Vol]Ordered By : Millie Massey on 09-02-2024 Serum glucose measurement (mass/volume) 73 mg/dL 70-99 [facility] Hematocrit Auto (Bld) [Volum e fraction]Ordered By: Millie Massey on 09-02-2024 Hematocrit (Bld) [Volume fraction] 34.9 % Low 37-47 [facility] Automated blood hematocrit (percentage) 34.9 % Low 37-47 [facility] Hemoglobin measurementOrdere d By: Millie Massey on 09-02-2024 Hemoglobin (Bld) [Mass/Vol] 10.7 g/dL Low 12.0-15.0 [facility] Hemoglobin measurement 10.7 g/dL Low 12.0-15.0 [facility] MCV (RBC) [Entitic vol]Order ed By: Millie Massey on 09-02-2024 MCV (mean corpuscular volume) determination 91.4 fL 81-99 [facility] MCV (mean corpuscular volume ) determinationOrdered By: Millie Massey on 09-02-2024 MCV (RBC) [Entitic vol] 91.4 fL 81-99 [facility] Magnesiumon 09-02-2024 Magnesium [Mass/Vol] 2.4 mg/dL High 1.5-2.2 [facility] Comment on above: Order Comment: 206- Performed By: #### L 501.5200, L500.4050, L100.0500, L100.4500 ####[facility] [address] [place], [address] Magnesium (Unsp spec) [Mass/ Vol]Ordered By: Millie Massey on 09-02-2024 Magnesium measurement (mass/volume) 2.4 mg/dL High 1.5-2.2 [facility] Magnesium measurement (mass/ volume)Ordered By: Millie Massey on 09-02-2024 Magnesium (Unsp spec) [Mass/Vol] 2.4 mg/dL High 1.5-2.2 [facility] Manual differential comment Horace (Bld) [Interp]Ordered By: Millie Massey on 09-02-2024 Blood manual differential comment interpretation (narrative result) See comment [facility] Mean corpuscular hemoglobin (MCH) determinationOrdered By: Millie Massey on 09-02-2024 MCH (RBC) [Entitic mass] 28.0 pg 27.0-32.0 [facility] Mean corpuscular hemoglobin (MCH) determination 28.0 pg 27.0-32.0 [facility] Mean corpuscular hemoglobin concentration (MCHC) determinationOrdered By: Millie Massey on 09-02-2024 Mean corpuscular hemoglobin concentration (MCHC) determination 30.7 g/dL Low 32-36 [facility] Mean platelet volume determi nationOrdered By: Millie Massey on 09-02-2024 Mean platelet volume determination 10.2 fl 6.2-12.0 [facility] No Panel InformationOrdered By: Millie Massey on 09-02-2024 47 U/L High <32 [facility] Platelet countOrdered By: Carter Massey on 09-02-2024 Platelets (Bld) [#/Vol] 178 10*3/uL 150-450 [facility] Platelet count 178 K/mm3 150-450 [facility] Potassium (Unsp spec) [Mass/ Vol]Ordered By: Millie Massey on 09-02-2024 Potassium measurement (mass/volume) 3.7 mmol/L 3.3-5.1 [facility] Potassium measurement (mass/ volume)Ordered By: Millie Massey on 09-02-2024 Potassium (Unsp spec) [Mass/Vol] 3.7 mmol/L 3.3-5.1 [facility] RBC Auto (Bld) [#/Vol]Ordere d By: Millie Massey on 09-02-2024 RBC (Bld) [#/Vol] 3.82 10*6/uL Low 4.2-5.4 [facility] Automated blood erythrocyte count 3.82 M/mm3 Low 4.2-5.4 [facility] Serum creatinine measurement (mass/volume)Ordered By: Millie Massey on 09-02-2024 Creatinine [Mass/Vol] 0.91 mg/dL Normal 0.70-1.20 [facility] Comment on above: Order Comment: Performed By: #### L 501.5200, L500.4050, L100.0500, L100.4500 ####[facility] [address] [place], [place], [address] Serum globulin measurementOr dered By: Millie Massey on 09-02-2024 Globulin (S) [Mass/Vol] 3.7 g/dL Normal 2.2-4.2 [facility] Comment on above: Order Comment: Performed By: #### L 501.5200, L500.4050, L100.0500, L100.4500 ####[facility] [address] [place], [place], [address] Serum globulin measurement 3.7 g/dL 2.2-4.2 [facility] Serum glucose measurement (m ass/volume)Ordered By: Millie Massey on 09-02-2024 Glucose [Mass/Vol] 73 mg/dL Normal 70-99 [facility] Comment on above: Order Comment: Performed By: #### L 501.5200, L500.4050, L100.0500, L100.4500 ####[facility] [address] [place], [place], [address] Serum or plasma alanine camargo otransferase (ALT) measurementOrdered By: Millie Massey on 09-02-2024 ALT [Catalytic activity/Vol] 16 U/L Normal <=34 [facility] Comment on above: Order Comment: Performed By: #### L 501.5200, L500.4050, L100.0500, L100.4500 ####[facility] [address] [place], [place], [address] Serum or plasma albumin megan urement (mass/volume)Ordered By: Millie Massey on 09-02-2024 Albumin [Mass/Vol] 2.3 g/dL Low 3.4-4.8 [facility] Comment on above: Order Comment: Performed By: #### L 501.5200, L500.4050, L100.0500, L100.4500 ####[facility] [address] [place], [place], [id number] Serum or plasma albumin/glob ulin mass ratioOrdered By: Millie Massey on 09-02-2024 Albumin/Globulin [Mass ratio] 0.6 {ratio} Low 0.9-2.4 [facility] Comment on above: Order Comment: Performed By: #### L 501.5200, L500.4050, L100.0500, L100.4500 ####[facility] [address] [place], [place], [address] Serum or plasma alkaline susan sphatase measurementOrdered By: Millie Massey on 09-02-2024 ALP [Catalytic activity/Vol] 81 U/L 35-104 [facility] Serum or plasma calcium megan urement (mass/volume)Ordered By: Millie Massey on 09-02-2024 Calcium [Mass/Vol] 7.8 mg/dL Normal 7.6-11.0 [facility] Comment on above: Order Comment: Performed By: #### L 501.5200, L500.4050, L100.0500, L100.4500 ####[facility] [address] [place], [address] Serum or plasma urea nitroge n measurement (mass/volume)Ordered By: Millie Massey on 09-02-2024 Urea nitrogen [Mass/Vol] 21 mg/dL [facility] 09-14 [facility] Comment on above: Order Comment: Performed By: #### L 501.5200, L500.4050, L100.0500, L100.4500 ####[facility] [address] [place], [place], [address] Sodium levelOrdered By: Silvana Massey on 09-02-2024 Sodium [Moles/Vol] 133 mmol/L Normal 133-145 [facility] Comment on above: Order Comment: Performed By: #### L 501.5200, L500.4050, L100.0500, L100.4500 ####[facility] [address] [place], [address] Sodium level 133 mmol/L 133-145 [facility] Total proteinOrdered By: Lesli Massey on 09-02-2024 Protein [Mass/Vol] 5.9 g/dL 5.9-8.4 [facility] Total protein 5.9 g/dL 5.9-8.4 [facility] Urea nitrogen [Mass/Vol]Orde red By: Millie Massey on 09-02-2024 Serum or plasma urea nitrogen measurement (mass/volume) 21 mg/dL [facility] -19 [facility] White blood cell (WBC) count Ordered By: Millie Massey on 09-02-2024 WBC (Bld) [#/Vol] 8.0 10*3/uL 4.4-11.0 [facility] White blood cell (WBC) count 8.0 K/mm3 4.4-11.0 [facility] [id number] 08-30-2024 ANTIBODY ID Normal [facility] Comment on above: Order Comment: [id number] Result Comment: CFYA Performed By: #### B [id number], [facility] ####[facility] [address] [place], [place], [address] BRCon 08-29-2024 RC Normal [facility] Comment on above: Result Comment: [id number] ON PRSMD TRFSD 08/31/24 [id number] ON PRSMD TRFSD 08/31/24 1018 Performed By: #### B [id number], [facility] ####[facility] [address] [place], [address] Type AND Screenon 08-29-2024 ABO and Rh group Nom (Bld) Blood group O Rh(D) positive Normal [facility] Comment on above: Order Comment: NYA Performed By: #### B [id number], [facility] ####[facility] [address] [place], [address] Blood manual differential co mment interpretation (narrative result)Ordered By: Millie Massey on 08-28-2024 Manual differential comment Horace (Bld) [Interp] See comment [facility] CBC-Complete Blood Cnt No Di ffon 08-28-2024 Erythrocyte distribution width (RBC) [Ratio] 21.5 % High 11.6-14.6 [facility] Comment on above: Order Comment: 200 Performed By: #### L 100.0500, L100.4500 ####[facility] [address] [place], [address] Hematocrit (Bld) [Volume fraction] 24.2 % Low 37-47 [facility] Comment on above: Order Comment: 200 Performed By: #### L 100.0500, L100.4500 ####[facility] [address] [place], [address] Hemoglobin (Bld) [Mass/Vol] 7.1 g/dL Low 12.0-15.0 [facility] Comment on above: Order Comment: 200 Performed By: #### L 100.0500, L100.4500 ####[facility] [address] [place], [address] MCH (RBC) [Entitic mass] 27.8 pg Normal 27.0-32.0 [facility] Comment on above: Order Comment: 200 Performed By: #### L 100.0500, L100.4500 ####[facility] [address] [place], [address] MCHC (RBC) [Mass/Vol] 29.3 g/dL Low 32-36 [facility] Comment on above: Order Comment: 200 Performed By: #### L 100.0500, L100.4500 ####[facility] [address] [place], [address] MCV (RBC) [Entitic vol] 94.9 fL Normal 81-99 [facility] Comment on above: Order Comment: 200 Performed By: #### L 100.0500, L100.4500 ####[facility] [address] [place], [address] Platelet mean volume (Bld) [Entitic vol] 10.8 fL Normal 6.2-12.0 [facility] Comment on above: Order Comment: 200 Performed By: #### L 100.0500, L100.4500 ####[facility] [address] [place], [address] Platelets (Bld) [#/Vol] 261 10*3/uL Normal 150-450 [facility] Comment on above: Order Comment: 200 Performed By: #### L 100.0500, L100.4500 ####[facility] [address] [place], [address] RBC (Bld) [#/Vol] 2.55 10*6/uL Low 4.2-5.4 [facility] Comment on above: Order Comment: 200 Performed By: #### L 100.0500, L100.4500 ####[facility] [address] [place], [address] RDW SD 74.1 fl High 35.1-43.9 [facility] Comment on above: Order Comment: 200 Performed By: #### L 100.0500, L100.4500 ####[facility] [address] [place], [address] WBC (Bld) [#/Vol] 4.3 10*3/uL Low 4.4-11.0 [facility] Comment on above: Order Comment: 200 Performed By: #### L 100.0500, L100.4500 ####[facility] [address] [place], [address] Differential Commenton 08-28 SMEAR COMMENT Normal [facility] Comment on above: Order Comment: 200 Result Comment: ANIS OCYTOSIS = 1+POLYCHROMASIA = 1+PLATELET ESTIMATE = ADEQUATE Performed By: #### L 100.0500, L100.4500 ####[facility] [address] [place], [address] Erythrocyte distribution wid th (RBC) [Ratio]Ordered By: Millie Massey on 08-28-2024 Erythrocyte distribution width ratio 21.5 % High 11.6-14.6 [facility] Erythrocyte distribution width standard deviation 74.1 fl High 35.1-43.9 [facility] Erythrocyte distribution wid th ratioOrdered By: Millie Massey on 08-28-2024 Erythrocyte distribution width (RBC) [Ratio] 21.5 % High 11.6-14.6 [facility] Erythrocyte distribution wid th standard deviationOrdered By: Millie Massey on 08-28-2024 Erythrocyte distribution width (RBC) [Ratio] 74.1 fl High 35.1-43.9 [facility] Hematocrit Auto (Bld) [Volum e fraction]Ordered By: Millie Massey on 08-28-2024 Hematocrit (Bld) [Volume fraction] 24.2 % Low 37-47 [facility] Automated blood hematocrit (percentage) 24.2 % Low 37-47 [facility] Hemoglobin measurementOrdere d By: Millie Massey on 08-28-2024 Hemoglobin (Bld) [Mass/Vol] 7.1 g/dL Low 12.0-15.0 [facility] Hemoglobin measurement 7.1 g/dL Low 12.0-15.0 [facility] MCV (RBC) [Entitic vol]Order ed By: Millie Massey on 08-28-2024 MCV (mean corpuscular volume) determination 94.9 fL 81-99 [facility] MCV (mean corpuscular volume ) determinationOrdered By: Millie Massey on 08-28-2024 MCV (RBC) [Entitic vol] 94.9 fL 81-99 [facility] Manual differential comment Horace (Bld) [Interp]Ordered By: Millie Massey on 08-28-2024 Blood manual differential comment interpretation (narrative result) See comment [facility] Mean corpuscular hemoglobin (MCH) determinationOrdered By: Millie Massey on 08-28-2024 MCH (RBC) [Entitic mass] 27.8 pg 27.0-32.0 [facility] Mean corpuscular hemoglobin (MCH) determination 27.8 pg 27.0-32.0 [facility] Mean corpuscular hemoglobin concentration (MCHC) determinationOrdered By: Millie Massey on 08-28-2024 Mean corpuscular hemoglobin concentration (MCHC) determination 29.3 g/dL Low 32-36 [facility] Mean platelet volume determi nationOrdered By: Millie Massey on 08-28-2024 Mean platelet volume determination 10.8 fl 6.2-12.0 [facility] Platelet countOrdered By: Carter Massey on 08-28-2024 Platelets (Bld) [#/Vol] 261 10*3/uL 150-450 [facility] Platelet count 261 K/mm3 150-450 [facility] RBC Auto (Bld) [#/Vol]Ordere d By: Millie Massey on 08-28-2024 RBC (Bld) [#/Vol] 2.55 10*6/uL Low 4.2-5.4 [facility] Automated blood erythrocyte count 2.55 M/mm3 Low 4.2-5.4 [facility] White blood cell (WBC) count Ordered By: Millie Massey on 08-28-2024 WBC (Bld) [#/Vol] 4.3 10*3/uL Low 4.4-11.0 [facility] White blood cell (WBC) count 4.3 K/mm3 Low 4.4-11.0 [facility] ALP [Catalytic activity/Vol] Ordered By: Millie Massey on 08-26-2024 Serum or plasma alkaline phosphatase measurement 81 U/L 35-104 [facility] ALT [Catalytic activity/Vol] Ordered By: Millie Massey on 08-26-2024 Serum or plasma alanine aminotransferase (ALT) measurement 10 U/L <35 [facility] Albumin [Mass/Vol]Ordered By : Millie Massey on 08-26-2024 Serum or plasma albumin measurement (mass/volume) 2.1 g/dL Low 3.4-4.8 [facility] Albumin/Globulin [Mass ratio ]Ordered By: Millie Massey on 08-26-2024 Serum or plasma albumin/globulin mass ratio 0.6 RATIO Low 0.9-2.4 [facility] Anion gap [Moles/Vol]Ordered By: Millie Massey on 08-26-2024 Anion gap in Serum or Plasma 12 5-15 [facility] Anion gap in Serum or Plasma Ordered By: Millie Massey on 08-26-2024 Anion gap [Moles/Vol] 12 mmol/L 5-15 [facility] BUN/creatinine ratioOrdered By: Millie Massey on 08-26-2024 Urea nitrogen/Creatinine [Mass ratio] 24.2 mg/mg High 10-20 [facility] BUN/creatinine ratio 24.2 RATIO High 10-20 [facility] Bilirubin, totalOrdered By: Millie Massey on 08-26-2024 Bilirubin [Mass/Vol] 0.19 mg/dL 0.00-1.30 [facility] Bilirubin, total 0.19 mg/dL 0.00-1.30 [facility] Blood manual differential co mment interpretation (narrative result)Ordered By: Millie Massey on 08-26-2024 Manual differential comment Horace (Bld) [Interp] COMMENT [facility] CBC-Complete Blood Cnt No Di ffon 08-26-2024 Erythrocyte distribution width (RBC) [Ratio] 21.6 % High 11.6-14.6 [facility] Comment on above: Order Comment: 206 Performed By: #### L 100.0500, L100.4500, L501.5200, L500.4050 ####[facility] [address] [place], [address] Hematocrit (Bld) [Volume fraction] 23.6 % Low 37-47 [facility] Comment on above: Order Comment: 206 Performed By: #### L 100.0500, L100.4500, L501.5200, L500.4050 ####[facility] [address] [place], [address] Hemoglobin (Bld) [Mass/Vol] 7.0 g/dL Low 12.0-15.0 [facility] Comment on above: Order Comment: 206 Performed By: #### L 100.0500, L100.4500, L501.5200, L500.4050 ####[facility] [address] [place], [address] MCH (RBC) [Entitic mass] 27.7 pg Normal 27.0-32.0 [facility] Comment on above: Order Comment: 206 Performed By: #### L 100.0500, L100.4500, L501.5200, L500.4050 ####[facility] [address] [place], [address] MCHC (RBC) [Mass/Vol] 29.7 g/dL Low 32-36 [facility] Comment on above: Order Comment: 206 Performed By: #### L 100.0500, L100.4500, L501.5200, L500.4050 ####[facility] [address] [place], [address] MCV (RBC) [Entitic vol] 93.3 fL Normal 81-99 [facility] Comment on above: Order Comment: 206 Performed By: #### L 100.0500, L100.4500, L501.5200, L500.4050 ####[facility] [address] [place], [address] Platelet mean volume (Bld) [Entitic vol] 10.2 fL Normal 6.2-12.0 [facility] Comment on above: Order Comment: 206 Performed By: #### L 100.0500, L100.4500, L501.5200, L500.4050 ####[facility] [address] [place], [address] Platelets (Bld) [#/Vol] 260 10*3/uL Normal 150-450 [facility] Comment on above: Order Comment: 206 Performed By: #### L 100.0500, L100.4500, L501.5200, L500.4050 ####[facility] [address] [place], [address] RBC (Bld) [#/Vol] 2.53 10*6/uL Low 4.2-5.4 [facility] Comment on above: Order Comment: 206 Performed By: #### L 100.0500, L100.4500, L501.5200, L500.4050 ####[facility] [address] [place], [place], [address] RDW SD 71.9 fl High 35.1-43.9 [facility] Comment on above: Order Comment: 206 Performed By: #### L 100.0500, L100.4500, L501.5200, L500.4050 ####[facility] [address] [place], [address] WBC (Bld) [#/Vol] 4.2 10*3/uL Low 4.4-11.0 [facility] Comment on above: Order Comment: 206 Performed By: #### L 100.0500, L100.4500, L501.5200, L500.4050 ####[facility] [address] [place], [place], [address] Calcium [Mass/Vol]Ordered By : Millie Massey on 08-26-2024 Serum or plasma calcium measurement (mass/volume) 8.2 mg/dL 7.6-11.0 [facility] Carbon dioxide, total [Moles /volume] in Central venous bloodOrdered By: Millie Massey on 08-26-2024 CO2 [Moles/Vol] 23.7 mmol/L 21.0-32.0 [facility] Carbon dioxide, total [Moles/volume] in Central venous blood 23.7 mmol/L 21.0-32.0 [facility] Chloride assayOrdered By: Carter Massey on 08-26-2024 Chloride [Moles/Vol] 96 mmol/L Low 98-108 [facility] Chloride assay 96 mmol/L Low 98-108 [facility] Comprehensive Metabolic Prof ilon 08-26-2024 Albumin [Mass/Vol] 2.1 g/dL Low 3.4-4.8 [facility] Comment on above: Order Comment: 206 Performed By: #### L 100.0500, L100.4500, L501.5200, L500.4050 ####[facility] [address] [place], [address] Albumin/Globulin [Mass ratio] 0.6 {ratio} Low 0.9-2.4 [facility] Comment on above: Order Comment: 206 Performed By: #### L 100.0500, L100.4500, L501.5200, L500.4050 ####[facility] [address] [place], [address] ALK PHOS 81 U/L Normal 35-104 [facility] Comment on above: Order Comment: 206 Performed By: #### L 100.0500, L100.4500, L501.5200, L500.4050 ####[facility] [address] [place], [address] ALT [Catalytic activity/Vol] 10 U/L Normal <=34 [facility] Comment on above: Order Comment: 206 Performed By: #### L 100.0500, L100.4500, L501.5200, L500.4050 ####[facility] [address] [place], [address] AST [Catalytic activity/Vol] 30 U/L Normal <=31 [facility] Comment on above: Order Comment: 206 Performed By: #### L 100.0500, L100.4500, L501.5200, L500.4050 ####[facility] [address] [place], [address] Bilirubin [Mass/Vol] 0.19 mg/dL Normal 0.00-1.30 [facility] Comment on above: Order Comment: 206 Performed By: #### L 100.0500, L100.4500, L501.5200, L500.4050 ####[facility] [address] [place], [address] BUN/CRE 24.2 RATIO High 10-20 [facility] Comment on above: Order Comment: 206 Performed By: #### L 100.0500, L100.4500, L501.5200, L500.4050 ####[facility] [address] [place], [address] Calcium [Mass/Vol] 8.2 mg/dL Normal 7.6-11.0 [facility] Comment on above: Order Comment: 206 Performed By: #### L 100.0500, L100.4500, L501.5200, L500.4050 ####[facility] [address] [place], [address] Chloride [Moles/Vol] 96 mmol/L Low 98-108 [facility] Comment on above: Order Comment: 206 Performed By: #### L 100.0500, L100.4500, L501.5200, L500.4050 ####[facility] [address] [place], [address] CO2 [Moles/Vol] 23.7 mmol/L Normal 21.0-32.0 [facility] Comment on above: Order Comment: 206 Performed By: #### L 100.0500, L100.4500, L501.5200, L500.4050 ####[facility] [address] [place], [address] Creatinine [Mass/Vol] 1.49 mg/dL High 0.70-1.20 [facility] Comment on above: Order Comment: 206 Performed By: #### L 100.0500, L100.4500, L501.5200, L500.4050 ####[facility] [address] [place], [address] GAP 12 Normal 5-15 [facility] Comment on above: Order Comment: 206 Performed By: #### L 100.0500, L100.4500, L501.5200, L500.4050 ####[facility] [address] [place], [address] GFR/1.73 sq M.predicted among non-blacks MDRD (S/P/Bld) [Vol rate/Area] 39 mL/min/{1.73_m2} Low >60 [facility] Comment on above: Order Comment: 206 Result Comment: mL/m in/1.73m2 CKD-EPI Creatinine Equation (2020) Performed By: #### L 100.0500, L100.4500, L501.5200, L500.4050 ####[facility] [address] [place], [address] Globulin (S) [Mass/Vol] 3.3 g/dL Normal 2.2-4.2 [facility] Comment on above: Order Comment: 206 Performed By: #### L 100.0500, L100.4500, L501.5200, L500.4050 ####[facility] [address] [place], [address] Glucose [Mass/Vol] 93 mg/dL Normal 70-99 [facility] Comment on above: Order Comment: 206 Performed By: #### L 100.0500, L100.4500, L501.5200, L500.4050 ####[facility] [address] [place], [address] Potassium [Moles/Vol] 4.9 mmol/L Normal 3.3-5.1 [facility] Comment on above: Order Comment: 206 Performed By: #### L 100.0500, L100.4500, L501.5200, L500.4050 ####[facility] [address] [place], [address] Sodium [Moles/Vol] 131 mmol/L Low 133-145 [facility] Comment on above: Order Comment: 206 Performed By: #### L 100.0500, L100.4500, L501.5200, L500.4050 ####[facility] [address] [place], [address] T PROT 5.4 g/dL Low 5.9-8.4 [facility] Comment on above: Order Comment: 206 Performed By: #### L 100.0500, L100.4500, L501.5200, L500.4050 ####[facility] [address] [place], [address] Urea nitrogen [Mass/Vol] 36 mg/dL High 4-19 [facility] Comment on above: Order Comment: 206 Performed By: #### L 100.0500, L100.4500, L501.5200, L500.4050 ####[facility] [address] [place], [address] Creatinine [Mass/Vol]Ordered By: Millie Massey on 08-26-2024 Serum creatinine measurement (mass/volume) 1.49 mg/dL High 0.70-1.20 [facility] Differential Commenton 08-26 SMEAR COMMENT COMMENT Normal [facility] Comment on above: Order Comment: 206 Result Comment: 2+ A NISO. Performed By: #### L 100.0500, L100.4500, L501.5200, L500.4050 ####[facility] [address] [place], [address] Erythrocyte distribution wid th (RBC) [Ratio]Ordered By: Millie Massey on 08-26-2024 Erythrocyte distribution width ratio 21.6 % High 11.6-14.6 [facility] Erythrocyte distribution width standard deviation 71.9 fl High 35.1-43.9 [facility] Erythrocyte distribution wid th ratioOrdered By: Millie Massey on 08-26-2024 Erythrocyte distribution width (RBC) [Ratio] 21.6 % High 11.6-14.6 [facility] Erythrocyte distribution wid th standard deviationOrdered By: Millie Massey on 08-26-2024 Erythrocyte distribution width (RBC) [Ratio] 71.9 fl High 35.1-43.9 [facility] GFR/1.73 sq M.predicted vítcor g non-blacks MDRD (S/P/Bld) [Vol rate/Area]Ordered By: Millie Massey on 08-26-2024 Glomerular filtration rate (GFR) estimation/1.73 sq m using serum, plasma, or whole b 39 Low >60 [facility] Glomerular filtration rate ( GFR) estimation/1.73 sq m using serum, plasma, or whole bOrdered By: Millie Massey on 08-26-2024 GFR/1.73 sq M.predicted among non-blacks MDRD (S/P/Bld) [Vol rate/Area] 39 mL/min/{1.73_m2} Low >60 [facility] Glucose [Mass/Vol]Ordered By : Millie Massey on 08-26-2024 Serum glucose measurement (mass/volume) 93 mg/dL 70-99 [facility] Hematocrit Auto (Bld) [Volum e fraction]Ordered By: Millie Massey on 08-26-2024 Hematocrit (Bld) [Volume fraction] 23.6 % Low 37-47 [facility] Automated blood hematocrit (percentage) 23.6 % Low 37-47 [facility] Hemoglobin measurementOrdere d By: Millie Massey on 08-26-2024 Hemoglobin (Bld) [Mass/Vol] 7.0 g/dL Low 12.0-15.0 [facility] Hemoglobin measurement 7.0 g/dL Low 12.0-15.0 [facility] MCV (RBC) [Entitic vol]Order ed By: Millie Massey on 08-26-2024 MCV (mean corpuscular volume) determination 93.3 fL 81-99 [facility] MCV (mean corpuscular volume ) determinationOrdered By: Millie Massey on 08-26-2024 MCV (RBC) [Entitic vol] 93.3 fL 81-99 [facility] Magnesiumon 08-26-2024 Magnesium [Mass/Vol] 1.8 mg/dL Normal 1.5-2.2 [facility] Comment on above: Order Comment: 206 Performed By: #### L 100.0500, L100.4500, L501.5200, L500.4050 ####[facility] [address] [place], [address] Magnesium (Unsp spec) [Mass/ Vol]Ordered By: Millie Massey on 08-26-2024 Magnesium measurement (mass/volume) 1.8 mg/dL 1.5-2.2 [facility] Magnesium measurement (mass/ volume)Ordered By: Millie Massey on 08-26-2024 Magnesium (Unsp spec) [Mass/Vol] 1.8 mg/dL 1.5-2.2 [facility] Manual differential comment Horace (Bld) [Interp]Ordered By: Millie Massey on 08-26-2024 Blood manual differential comment interpretation (narrative result) COMMENT [facility] Mean corpuscular hemoglobin (MCH) determinationOrdered By: Millie Massey on 08-26-2024 MCH (RBC) [Entitic mass] 27.7 pg 27.0-32.0 [facility] Mean corpuscular hemoglobin (MCH) determination 27.7 pg 27.0-32.0 [facility] Mean corpuscular hemoglobin concentration (MCHC) determinationOrdered By: Millie Massey on 08-26-2024 Mean corpuscular hemoglobin concentration (MCHC) determination 29.7 g/dL Low 32-36 [facility] Mean platelet volume determi nationOrdered By: Millie Massey on 08-26-2024 Mean platelet volume determination 10.2 fl 6.2-12.0 [facility] No Panel InformationOrdered By: Millie Massey on 08-26-2024 30 U/L <32 [facility] Platelet countOrdered By: Carter Massey on 08-26-2024 Platelets (Bld) [#/Vol] 260 10*3/uL 150-450 [facility] Platelet count 260 K/mm3 150-450 [facility] Potassium (Unsp spec) [Mass/ Vol]Ordered By: Millie Massey on 08-26-2024 Potassium measurement (mass/volume) 4.9 mmol/L 3.3-5.1 [facility] Potassium measurement (mass/ volume)Ordered By: Millie Massey on 08-26-2024 Potassium (Unsp spec) [Mass/Vol] 4.9 mmol/L 3.3-5.1 [facility] RBC Auto (Bld) [#/Vol]Ordere d By: Millie Massey on 08-26-2024 RBC (Bld) [#/Vol] 2.53 10*6/uL Low 4.2-5.4 [facility] Automated blood erythrocyte count 2.53 M/mm3 Low 4.2-5.4 [facility] Serum creatinine measurement (mass/volume)Ordered By: Millei Massey on 08-26-2024 Creatinine [Mass/Vol] 1.49 mg/dL High 0.70-1.20 [facility] Serum globulin measurementOr dered By: Millie Massey on 08-26-2024 Globulin (S) [Mass/Vol] 3.3 g/dL 2.2-4.2 [facility] Serum globulin measurement 3.3 g/dL 2.2-4.2 [facility] Serum glucose measurement (m ass/volume)Ordered By: Millie Massey on 08-26-2024 Glucose [Mass/Vol] 93 mg/dL 70-99 [facility] Serum or plasma alanine camargo otransferase (ALT) measurementOrdered By: Millie Massey on 08-26-2024 ALT [Catalytic activity/Vol] 10 U/L <35 [facility] Serum or plasma albumin megan urement (mass/volume)Ordered By: Millie Msasey on 08-26-2024 Albumin [Mass/Vol] 2.1 g/dL Low 3.4-4.8 [facility] Serum or plasma albumin/glob ulin mass ratioOrdered By: Millie Massey on 08-26-2024 Albumin/Globulin [Mass ratio] 0.6 {ratio} Low 0.9-2.4 [facility] Serum or plasma alkaline susan sphatase measurementOrdered By: Millie Massey on 08-26-2024 ALP [Catalytic activity/Vol] 81 U/L 35-104 [facility] Serum or plasma calcium megan urement (mass/volume)Ordered By: Millie Massey on 03-31-2025 Calcium [Mass/Vol] 8.2 mg/dL 7.6-11.0 [facility] Serum or plasma urea nitroge n measurement (mass/volume)Ordered By: Millie Massey on 08-26-2024 Urea nitrogen [Mass/Vol] 36 mg/dL High 09-14 [facility] Sodium levelOrdered By: Silvana Massey on 08-26-2024 Sodium [Moles/Vol] 131 mmol/L Low 133-145 [facility] Sodium level 131 mmol/L Low 133-145 [facility] Total proteinOrdered By: Lesli Massey on 08-26-2024 Protein [Mass/Vol] 5.4 g/dL Low 5.9-8.4 [facility] Total protein 5.4 g/dL Low 5.9-8.4 [facility] Urea nitrogen [Mass/Vol]Orde red By: Millie Massey on 08-26-2024 Serum or plasma urea nitrogen measurement (mass/volume) 36 mg/dL High 09-14 [facility] White blood cell (WBC) count Ordered By: Millie Massey on 08-26-2024 WBC (Bld) [#/Vol] 4.2 10*3/uL Low 4.4-11.0 [facility] White blood cell (WBC) count 4.2 K/mm3 Low 4.4-11.0 [facility] Anion gap [Moles/Vol]Ordered By: Millie Massey on 08-22-2024 Anion gap in Serum or Plasma 7 5- [facility] Anion gap in Serum or Plasma Ordered By: Millie Massey on 08-22-2024 Anion gap [Moles/Vol] 7 mmol/L - [facility] BUN/creatinine ratioOrdered By: Millie Massey on 08-22-2024 Urea nitrogen/Creatinine [Mass ratio] 20.6 mg/mg High 03-17 [facility] BUN/creatinine ratio 20.6 RATIO High - [facility] Basic Metabolic Profile (BMP )on 08-22-2024 BUN/CRE 20.6 RATIO High 03-17 [facility] Comment on above: Order Comment: 206.1 Performed By: #### L 500.2500 ####[facility] [address] [place], [address] Calcium [Mass/Vol] 7.7 mg/dL Normal 7.6-11.0 [facility] Comment on above: Order Comment: 206.1 Performed By: #### L 500.2500 ####[facility] [address] [place], [address] Chloride [Moles/Vol] 99 mmol/L Normal 98-108 [facility] Comment on above: Order Comment: 206.1 Performed By: #### L 500.2500 ####[facility] [address] [place], [address] CO2 [Moles/Vol] 30.8 mmol/L Normal 21.0-32.0 [facility] Comment on above: Order Comment: .1 Performed By: #### L 500.2500 ####[facility] [address] [place], [address] Creatinine [Mass/Vol] 0.89 mg/dL Normal 0.70-1.20 [facility] Comment on above: Order Comment: .1 Performed By: #### L 500.2500 ####[facility] [address] [place], [address] GAP 7 Normal 5-15 [facility] Comment on above: Order Comment: .1 Performed By: #### L 500.2500 ####[facility] [address] [place], [address] GFR/1.73 sq M.predicted among non-blacks MDRD (S/P/Bld) [Vol rate/Area] 73 mL/min/{1.73_m2} Normal >60 [facility] Comment on above: Order Comment: 206.1 Result Comment: mL/m in/1.73m2 CKD-EPI Creatinine Equation (2020) Performed By: #### L 500.2500 ####[facility] [address] [place], [address] Glucose [Mass/Vol] 113 mg/dL High 70-99 [facility] Comment on above: Order Comment: 206.1 Performed By: #### L 500.2500 ####[facility] [address] [place], [address] Potassium [Moles/Vol] 3.4 mmol/L Normal 3.3-5.1 [facility] Comment on above: Order Comment: 206.1 Performed By: #### L 500.2500 ####[facility] [address] [place], [address] Sodium [Moles/Vol] 136 mmol/L Normal 133-145 [facility] Comment on above: Order Comment: 206.1 Performed By: #### L 500.2500 ####[facility] [address] [place], [address] Urea nitrogen [Mass/Vol] 18 mg/dL Normal 4-19 [facility] Comment on above: Order Comment: 206.1 Performed By: #### L 500.2500 ####[facility] [address] [place], [address] Calcium [Mass/Vol]Ordered By : Millie Massey on 08-22-2024 Serum or plasma calcium measurement (mass/volume) 7.7 mg/dL 7.6-11.0 [facility] Carbon dioxide, total [Moles /volume] in Central venous bloodOrdered By: Millie Massey on 08-22-2024 CO2 [Moles/Vol] 30.8 mmol/L 21.0-32.0 [facility] Carbon dioxide, total [Moles/volume] in Central venous blood 30.8 mmol/L 21.0-32.0 [facility] Chloride assayOrdered By: Carter Massey on 08-22-2024 Chloride [Moles/Vol] 99 mmol/L 98-108 [facility] Chloride assay 99 mmol/L 98-108 [facility] Creatinine [Mass/Vol]Ordered By: Millie Massey on 08-22-2024 Serum creatinine measurement (mass/volume) 0.89 mg/dL 0.70-1.20 [facility] GFR/1.73 sq M.predicted víctor g non-blacks MDRD (S/P/Bld) [Vol rate/Area]Ordered By: Millie Massey on 08-22-2024 Glomerular filtration rate (GFR) estimation/1.73 sq m using serum, plasma, or whole b 73 >60 [facility] Glomerular filtration rate ( GFR) estimation/1.73 sq m using serum, plasma, or whole bOrdered By: Millie Massey on 08-22-2024 GFR/1.73 sq M.predicted among non-blacks MDRD (S/P/Bld) [Vol rate/Area] 73 mL/min/{1.73_m2} >60 [facility] Glucose [Mass/Vol]Ordered By : Millie Massey on 08-22-2024 Serum glucose measurement (mass/volume) 113 mg/dL High 70- [facility] Potassium (Unsp spec) [Mass/ Vol]Ordered By: Millie Massey on 08-22-2024 Potassium measurement (mass/volume) 3.4 mmol/L 3.3-5.1 [facility] Potassium measurement (mass/ volume)Ordered By: Millie Massey on 08-22-2024 Potassium (Unsp spec) [Mass/Vol] 3.4 mmol/L 3.3-5.1 [facility] Serum creatinine measurement (mass/volume)Ordered By: Millie Massey on 08-22-2024 Creatinine [Mass/Vol] 0.89 mg/dL 0.70-1.20 [facility] Serum glucose measurement (m ass/volume)Ordered By: Millie Massey on 08-22-2024 Glucose [Mass/Vol] 113 mg/dL High 70-99 [facility] Serum or plasma calcium megan urement (mass/volume)Ordered By: Millie Massey on 08-22-2024 Calcium [Mass/Vol] 7.7 mg/dL 7.6-11.0 [facility] Serum or plasma urea nitroge n measurement (mass/volume)Ordered By: Millie Massey on 08-22-2024 Urea nitrogen [Mass/Vol] 18 mg/dL 09-14 [facility] Sodium levelOrdered By: Silvana Massey on 08-22-2024 Sodium [Moles/Vol] 136 mmol/L 133-145 [facility] Sodium level 136 mmol/L 133-145 [facility] Urea nitrogen [Mass/Vol]Orde red By: Millie Massey on 08-22-2024 Serum or plasma urea nitrogen measurement (mass/volume) 18 mg/dL 09-14 [facility] Amylase Body Fluidon 025 AMYLASE,BDY FLD 30 U/L Normal . [facility] Comment on above: Order Comment: Test( s) [id number], Body Fluidwas developed and its performance characteristicsdetermined by [facility]. It has not been cleared or approvedby the Food and Drug Administration.Specimen Comment: A duplicate report has been generateddue to demographicSpecimen Comment: updates. Result Comment: ____ : BODY FLUID TYPE : AMYLASE : : : : : Lymph : 50 - 83 : : : : : Peritoneal : : : Fluid : 88 - 109 : : : : : Saliva : : : (Mixed Glands) : 89998 - [id number] : : : : [employer] V. Reference Intervals for Adults and Children 2008. Ninth Edition (V9.1) [employer], [facility]; [place]: November 2008. Performed By: #### L 3800.0400, L3800.0050 ####[facility] [address] [place], [address] Culture, Anaerobic Any Sourc tim 08-20-2024 CUAN No growth in 5 days. Normal [facility] Comment on above: Performed By: #### L 350.1000, L504.0250, L503.0300, L200.0200, L503.0100, M100.2900, M100.2000, M100.4001 ####[facility] [address] [place], [address] pH, Body Fluid [id number] 08-20 PH, BODY FLUID 7.3 Normal Not Estab. [facility] Comment on above: Order Comment: Test( s) [id number], Body Fluidwas developed and its performance characteristicsdetermined by [employer]. It has not been cleared or approvedby the Food and Drug Administration.Specimen Comment: A duplicate report has been generateddue to demographicSpecimen Comment: updates. Result Comment: The reference interval(s) and other method performance specificationshave not been established for this body fluid. The test result must beintegrated into the clinical context for interpretation. Performed By: #### L 3800.0400, L3800.0050 ####[facility] [address] [place], [address] Anion gap [Moles/Vol]Ordered By: Millie Massey on 08-19-2024 Anion gap in Serum or Plasma 7 - [facility] Anion gap in Serum or Plasma Ordered By: Millie Massey on 08-19-2024 Anion gap [Moles/Vol] 7 mmol/L - [facility] BUN/creatinine ratioOrdered By: Millie Massey on 08-19-2024 Urea nitrogen/Creatinine [Mass ratio] 28.6 mg/mg High - [facility] BUN/creatinine ratio 28.6 RATIO High -20 [facility] Basic Metabolic Profile (BMP )on 08-19-2024 BUN/CRE 28.6 RATIO High - [facility] Comment on above: Order Comment: - Performed By: #### L 500.2500, L100.0500, L501.5200 ####[facility] [address] [place], [address] Calcium [Mass/Vol] 8.1 mg/dL Normal 7.6-11.0 [facility] Comment on above: Order Comment: - Performed By: #### L 500.2500, L100.0500, L501.5200 ####[facility] [address] [place], [address] Chloride [Moles/Vol] 100 mmol/L Normal 98-108 [facility] Comment on above: Order Comment: - Performed By: #### L 500.2500, L100.0500, L501.5200 ####[facility] [address] [place], [address] CO2 [Moles/Vol] 23.0 mmol/L Normal 21.0-32.0 [facility] Comment on above: Order Comment: - Performed By: #### L 500.2500, L100.0500, L501.5200 ####[facility] [address] [place], [address] Creatinine [Mass/Vol] 1.34 mg/dL High 0.70-1.20 [facility] Comment on above: Order Comment: - Performed By: #### L 500.2500, L100.0500, L501.5200 ####[facility] [address] [place], [address] GAP 7 Normal 5-15 [facility] Comment on above: Order Comment: - Performed By: #### L 500.2500, L100.0500, L501.5200 ####[facility] [address] [place], [address] GFR/1.73 sq M.predicted among non-blacks MDRD (S/P/Bld) [Vol rate/Area] 45 mL/min/{1.73_m2} Low >60 [facility] Comment on above: Order Comment: Result Comment: mL/m in/1.73m2 CKD-EPI Creatinine Equation (2020) Performed By: #### L 500.2500, L100.0500, L501.5200 ####[facility] [address] [place], [address] Glucose [Mass/Vol] 89 mg/dL Normal 70-99 [facility] Comment on above: Order Comment: Performed By: #### L 500.2500, L100.0500, L501.5200 ####[facility] [address] [place], [address] Potassium [Moles/Vol] 6.8 mmol/L Invalid Interpretation Code 3.3-5.1 [facility] Comment on above: Order Comment: Result Comment: Hemo lysis present, Results??could be affected.??Critical Result(s) Called at: 0635 by: WALTER KENNEDY TO JACKIE SAUER??Results read back by same. Performed By: #### L 500.2500, L100.0500, L501.5200 ####[facility] [address] [place], [address] Sodium [Moles/Vol] 130 mmol/L Low 133-145 [facility] Comment on above: Order Comment: Performed By: #### L 500.2500, L100.0500, L501.5200 ####[facility] [address] [place], [address] Urea nitrogen [Mass/Vol] 38 mg/dL High 4-19 [facility] Comment on above: Order Comment: Performed By: #### L 500.2500, L100.0500, L501.5200 ####[facility] [address] [place], [address] CBC-Complete Blood Cnt No Di ffon 08-19-2024 Erythrocyte distribution width (RBC) [Ratio] 23.3 % High 11.6-14.6 [facility] Comment on above: Order Comment: - Performed By: #### L 500.2500, L100.0500, L501.5200 ####[facility] [address] [place], [address] Hematocrit (Bld) [Volume fraction] 25.7 % Low 37-47 [facility] Comment on above: Order Comment: - Performed By: #### L 500.2500, L100.0500, L501.5200 ####[facility] [address] [place], [address] Hemoglobin (Bld) [Mass/Vol] 7.8 g/dL Low 12.0-15.0 [facility] Comment on above: Order Comment: - Performed By: #### L 500.2500, L100.0500, L501.5200 ####[facility] [address] [place], [address] MCH (RBC) [Entitic mass] 28.4 pg Normal 27.0-32.0 [facility] Comment on above: Order Comment: - Performed By: #### L 500.2500, L100.0500, L501.5200 ####[facility] [address] [place], [address] MCHC (RBC) [Mass/Vol] 30.4 g/dL Low 32-36 [facility] Comment on above: Order Comment: - Performed By: #### L 500.2500, L100.0500, L501.5200 ####[facility] [address] [place], [address] MCV (RBC) [Entitic vol] 93.5 fL Normal 81-99 [facility] Comment on above: Order Comment: - Performed By: #### L 500.2500, L100.0500, L501.5200 ####[facility] [address] [place], [address] Platelet mean volume (Bld) [Entitic vol] 10.2 fL Normal 6.2-12.0 [facility] Comment on above: Order Comment: - Performed By: #### L 500.2500, L100.0500, L501.5200 ####[facility] [address] [place], [address] Platelets (Bld) [#/Vol] 168 10*3/uL Normal 150-450 [facility] Comment on above: Order Comment: - Performed By: #### L 500.2500, L100.0500, L501.5200 ####[facility] [address] [place], [address] RBC (Bld) [#/Vol] 2.75 10*6/uL Low 4.2-5.4 [facility] Comment on above: Order Comment: - Performed By: #### L 500.2500, L100.0500, L501.5200 ####[facility] [address] [place], [address] RDW SD 76.4 fl High 35.1-43.9 [facility] Comment on above: Order Comment: - Performed By: #### L 500.2500, L100.0500, L501.5200 ####[facility] [address] [place], [address] WBC (Bld) [#/Vol] 3.8 10*3/uL Low 4.4-11.0 [facility] Comment on above: Order Comment: Performed By: #### L 500.2500, L100.0500, L501.5200 ####[facility] [address] [place], [address] Calcium [Mass/Vol]Ordered By : Millie Massey on 08-19-2024 Serum or plasma calcium measurement (mass/volume) 8.1 mg/dL 7.6-11.0 [facility] Carbon dioxide, total [Moles /volume] in Central venous bloodOrdered By: Millie Massey on 08-19-2024 CO2 [Moles/Vol] 23.0 mmol/L 21.0-32.0 [facility] Carbon dioxide, total [Moles/volume] in Central venous blood 23.0 mmol/L 21.0-32.0 [facility] Chloride assayOrdered By: Carter Massey on 08-19-2024 Chloride [Moles/Vol] 100 mmol/L 98-108 [facility] Chloride assay 100 mmol/L 98-108 [facility] Creatinine [Mass/Vol]Ordered By: Millie Massey on 08-19-2024 Serum creatinine measurement (mass/volume) 1.34 mg/dL High 0.70-1.20 [facility] Culture, Blood (WB)on 2024 CUB Blood cultures x2, f rom two different sites No growth in 5 days. Normal [facility] Comment on above: Performed By: #### M 200.1000 ####[facility] [address] [place], [address] CUB Blood cultures x2, f rom two different sites No growth in 5 days. Normal [facility] Comment on above: Performed By: #### M 200.1000, L503.6005, L501.4021 ####[facility] [address] [place], [place], [id number] Erythrocyte distribution wid th (RBC) [Ratio]Ordered By: Millie Massey on 08-19-2024 Erythrocyte distribution width ratio 23.3 % High 11.6-14.6 [facility] Erythrocyte distribution width standard deviation 76.4 fl High 35.1-43.9 [facility] Erythrocyte distribution wid th ratioOrdered By: Millie Massey on 08-19-2024 Erythrocyte distribution width (RBC) [Ratio] 23.3 % High 11.6-14.6 [facility] Erythrocyte distribution wid th standard deviationOrdered By: Millie Massey on 08-19-2024 Erythrocyte distribution width (RBC) [Ratio] 76.4 fl High 35.1-43.9 [facility] GFR/1.73 sq M.predicted víctor g non-blacks MDRD (S/P/Bld) [Vol rate/Area]Ordered By: Millie Massey on 08-19-2024 Glomerular filtration rate (GFR) estimation/1.73 sq m using serum, plasma, or whole b 45 Low >60 [facility] Glomerular filtration rate ( GFR) estimation/1.73 sq m using serum, plasma, or whole bOrdered By: Millie Massey on 08-19-2024 GFR/1.73 sq M.predicted among non-blacks MDRD (S/P/Bld) [Vol rate/Area] 45 mL/min/{1.73_m2} Low >60 [facility] Glucose [Mass/Vol]Ordered By : Millie Massey on 08-19-2024 Serum glucose measurement (mass/volume) 89 mg/dL 70-99 [facility] Hematocrit Auto (Bld) [Volum e fraction]Ordered By: Millie Massey on 08-19-2024 Hematocrit (Bld) [Volume fraction] 25.7 % Low 37-47 [facility] Automated blood hematocrit (percentage) 25.7 % Low 37-47 [facility] Hemoglobin measurementOrdere d By: Millie Massey on 08-19-2024 Hemoglobin (Bld) [Mass/Vol] 7.8 g/dL Low 12.0-15.0 [facility] Hemoglobin measurement 7.8 g/dL Low 12.0-15.0 [facility] MCV (RBC) [Entitic vol]Order ed By: Millie Massey on 08-19-2024 MCV (mean corpuscular volume) determination 93.5 fL 81-99 [facility] MCV (mean corpuscular volume ) determinationOrdered By: Millie Massey on 08-19-2024 MCV (RBC) [Entitic vol] 93.5 fL 81-99 [facility] Magnesiumon 08-19-2024 Magnesium [Mass/Vol] 1.6 mg/dL Normal 1.5-2.2 [facility] Comment on above: Order Comment: Performed By: #### L 500.2500, L100.0500, L501.5200 ####[facility] [address] [place], [address] Magnesium (Unsp spec) [Mass/ Vol]Ordered By: Millie Massey on 08-19-2024 Magnesium measurement (mass/volume) 1.6 mg/dL 1.5-2.2 [facility] Magnesium measurement (mass/ volume)Ordered By: Millie Massey on 08-19-2024 Magnesium (Unsp spec) [Mass/Vol] 1.6 mg/dL 1.5-2.2 [facility] Mean corpuscular hemoglobin (MCH) determinationOrdered By: Millie Massey on 08-19-2024 MCH (RBC) [Entitic mass] 28.4 pg 27.0-32.0 [facility] Mean corpuscular hemoglobin (MCH) determination 28.4 pg 27.0-32.0 [facility] Mean corpuscular hemoglobin concentration (MCHC) determinationOrdered By: Millie Massey on 08-19-2024 Mean corpuscular hemoglobin concentration (MCHC) determination 30.4 g/dL Low 32-36 [facility] Mean platelet volume determi nationOrdered By: Millie Massey on 08-19-2024 Mean platelet volume determination 10.2 fl 6.2-12.0 [facility] Platelet countOrdered By: Carter Massey on 08-19-2024 Platelets (Bld) [#/Vol] 168 10*3/uL 150-450 [facility] Platelet count 168 K/mm3 150-450 [facility] Potassium (Unsp spec) [Mass/ Vol]Ordered By: Millie Massey on 08-19-2024 Potassium measurement (mass/volume) 6.8 mmol/L High 3.3-5.1 [facility] Potassium measurement (mass/ volume)Ordered By: Millie Massey on 08-19-2024 Potassium (Unsp spec) [Mass/Vol] 6.8 mmol/L High 3.3-5.1 [facility] RBC Auto (Bld) [#/Vol]Ordere d By: Millie Massey on 08-19-2024 RBC (Bld) [#/Vol] 2.75 10*6/uL Low 4.2-5.4 [facility] Automated blood erythrocyte count 2.75 M/mm3 Low 4.2-5.4 [facility] Serum creatinine measurement (mass/volume)Ordered By: Millie Massey on 08-19-2024 Creatinine [Mass/Vol] 1.34 mg/dL High 0.70-1.20 [facility] Serum glucose measurement (m ass/volume)Ordered By: Millie Massey on 08-19-2024 Glucose [Mass/Vol] 89 mg/dL 70-99 [facility] Serum or plasma calcium megan urement (mass/volume)Ordered By: Millie Massey on 08-19-2024 Calcium [Mass/Vol] 8.1 mg/dL 7.6-11.0 [facility] Serum or plasma urea nitroge n measurement (mass/volume)Ordered By: Millie Massey on 08-19-2024 Urea nitrogen [Mass/Vol] 38 mg/dL High 09-14 [facility] Sodium levelOrdered By: Silvana Massey on 08-19-2024 Sodium [Moles/Vol] 130 mmol/L Low 133-145 [facility] Sodium level 130 mmol/L Low 133-145 [facility] Urea nitrogen [Mass/Vol]Orde red By: Millie Massey on 08-19-2024 Serum or plasma urea nitrogen measurement (mass/volume) 38 mg/dL High - [facility] White blood cell (WBC) count Ordered By: Millie Massey on 08-19-2024 WBC (Bld) [#/Vol] 3.8 10*3/uL Low 4.4-11.0 [facility] White blood cell (WBC) count 3.8 K/mm3 Low 4.4-11.0 [facility] Body Fluid Culton 08-18-2024 BFC No growth aerobically. Normal [facility] Comment on above: Performed By: #### L 350.1000, L504.0250, L503.0300, L200.0200, L503.0100, M100.2900, M100.2000, M100.4001 ####[facility] [address] [place], [address] Urine Cultureon 08-18-2024 URC Normal [facility] Comment on above: Performed By: #### M 100.2200 ####[facility] [address] [facility] [place], [place], [address] Absolute lymphocyte countOrd ered By: Nikolsa Magaña on 08-17-2024 Lymphocytes Auto (Unsp spec) [#/Vol] 0.59 10*3/uL Low 0.83-4.51 [facility] Absolute neutrophil countOrd ered By: Nikolas Magaña on 08-17-2024 Absolute neutrophil count 3.2 X10^3/uL 2.0-7.7 [facility] Anion gap [Moles/Vol]Ordered By: Nikolas Magaña on 08-17-2024 Anion gap in Serum or Plasma 12 10-10 [facility] Anion gap in Serum or Plasma Ordered By: Nikolas Magaña on 08-17-2024 Anion gap [Moles/Vol] 12 mmol/L 10-10 [facility] Automated lymphocyte count a s percentage of total leukocytesOrdered By: Nikolas Magaña on 08-17-2024 Lymphocytes/100 WBC Auto (Unsp spec) 13.4 % Low 19-41 [facility] BUN/creatinine ratioOrdered By: Nikolas Magaña on 08-17-2024 Urea nitrogen/Creatinine [Mass ratio] 20.8 mg/mg High 10- [facility] BUN/creatinine ratio 20.8 RATIO High 10- [facility] Basic Metabolic Profile (BMP )on 08-17-2024 BUN/CRE 20.8 RATIO High 10- [facility] Comment on above: Performed By: #### L 100.0100, L500.2500 ####[facility] [address] [place], [address] Calcium [Mass/Vol] 8.2 mg/dL Normal 7.6-11.0 [facility] Comment on above: Performed By: #### L 100.0100, L500.2500 ####[facility] [address] [place], [address] Chloride [Moles/Vol] 101 mmol/L Normal 98-108 [facility] Comment on above: Performed By: #### L 100.0100, L500.2500 ####[facility] [address] [place], [address] CO2 [Moles/Vol] 19.8 mmol/L Low 21.0-32.0 [facility] Comment on above: Performed By: #### L 100.0100, L500.2500 ####[facility] [address] [place], [address] Creatinine [Mass/Vol] 1.07 mg/dL Normal 0.70-1.20 [facility] Comment on above: Performed By: #### L 100.0100, L500.2500 ####[facility] [address] [place], [address] ECRCL 42.17 ml/min Low 50-250 [facility] Comment on above: Performed By: #### L 100.0100, L500.2500 ####[facility] [address] [place], [address] GAP 12 Normal 5-15 [facility] Comment on above: Performed By: #### L 100.0100, L500.2500 ####[facility] [address] [place], [address] GFR/1.73 sq M.predicted among non-blacks MDRD (S/P/Bld) [Vol rate/Area] 59 mL/min/{1.73_m2} Low >60 [facility] Comment on above: Result Comment: mL/m in/1.73m2 CKD-EPI Creatinine Equation (2020) Performed By: #### L 100.0100, L500.2500 ####[facility] [address] [place], [address] Glucose [Mass/Vol] 83 mg/dL Normal 70-99 [facility] Comment on above: Performed By: #### L 100.0100, L500.2500 ####[facility] [address] [place], [address] Potassium [Moles/Vol] 4.7 mmol/L Normal 3.3-5.1 [facility] Comment on above: Result Comment: Hemo lysis present, Results??could be affected.?? Performed By: #### L 100.0100, L500.2500 ####[facility] [address] [place], [address] Sodium [Moles/Vol] 133 mmol/L Normal 133-145 [facility] Comment on above: Performed By: #### L 100.0100, L500.2500 ####[facility] [address] [place], [address] Urea nitrogen [Mass/Vol] 22 mg/dL High 4-19 [facility] Comment on above: Performed By: #### L 100.0100, L500.2500 ####[facility] [address] [place], [address] Basophil percentageOrdered B y: Nikolas Magaña on 08-17-2024 Basophils/100 WBC (Bld) 0.9 % 0-1 [facility] Basophil percentage 0.9 % 0-1 [facility] Blood polychromasia detectio n by light microscopyOrdered By: Nikolas Magaña on 08-17-2024 Polychromasia LM Ql (Bld) 2+ [facility] CBC W/Diff, Automatedon 07-28 OVALOCYTE 1+ Normal [facility] Comment on above: Performed By: #### L 100.0100, L500.2500 ####[facility] [address] [place], [address] Anisocytosis Ql (Bld) 1+ Normal [facility] Comment on above: Performed By: #### L 100.0100, L500.2500 ####[facility] [address] [place], [address] POLYCHROMASIA 2+ Normal [facility] Comment on above: Performed By: #### L 100.0100, L500.2500 ####[facility] [address] [place], [address] Calcium [Mass/Vol]Ordered By : Nikolas Magaña on 08-17-2024 Serum or plasma calcium measurement (mass/volume) 8.2 mg/dL 7.6-11.0 [facility] Carbon dioxide, total [Moles /volume] in Central venous bloodOrdered By: Nikolas Magaña on 08-17-2024 CO2 [Moles/Vol] 19.8 mmol/L Low 21.0-32.0 [facility] Carbon dioxide, total [Moles/volume] in Central venous blood 19.8 mmol/L Low 21.0-32.0 [facility] Chloride assayOrdered By: Oscar Magaña on 08-17-2024 Chloride [Moles/Vol] 101 mmol/L 98-108 [facility] Chloride assay 101 mmol/L 98-108 [facility] Creatinine [Mass/Vol]Ordered By: Nikolas Magaña on 08-17-2024 Serum creatinine measurement (mass/volume) 1.07 mg/dL 0.70-1.20 [facility] Eosinophil percentageOrdered By: Nikolas Magaña on 08-17-2024 Eosinophils/100 WBC (Bld) 3.4 % 0-5 [facility] Eosinophil percentage 3.4 % 0-5 [facility] Erythrocyte distribution wid th (RBC) [Ratio]Ordered By: Nikolas Magaña on 08-17-2024 Erythrocyte distribution width ratio 23.1 % High 11.6-14.6 [facility] Erythrocyte distribution wid th ratioOrdered By: Nikolas Magaña on 08-17-2024 Erythrocyte distribution width (RBC) [Ratio] 23.1 % High 11.6-14.6 [facility] Erythrocyte distribution wid th standard deviationOrdered By: Nikolas Magaña on 08-17-2024 Erythrocyte distribution width (RBC) [Ratio] 74.1 fl High 35.1-43.9 [facility] Erythrocyte distribution width standard deviation 74.1 fl High 35.1-43.9 [facility] Estimation of creatinine austen aranceOrdered By: Nikolas Magaña on 08-17-2024 Estimation of creatinine clearance 42.17 ml/min Low 50-250 [facility] GFR/1.73 sq M.predicted víctor g non-blacks MDRD (S/P/Bld) [Vol rate/Area]Ordered By: Nikolas Magaña on 08-17-2024 Glomerular filtration rate (GFR) estimation/1.73 sq m using serum, plasma, or whole b 59 Low >60 [facility] Glomerular filtration rate ( GFR) estimation/1.73 sq m using serum, plasma, or whole bOrdered By: Nikolas Magaña on 08-17-2024 GFR/1.73 sq M.predicted among non-blacks MDRD (S/P/Bld) [Vol rate/Area] 59 mL/min/{1.73_m2} Low >60 [facility] Glucoseon 08-17-2024 Glucose [Mass/Vol] 73 mg/dL Normal 70-99 [facility] Comment on above: Performed By: #### L 501.0100 ####[facility] [address] [place], [address] Glucose [Mass/Vol]Ordered By : Nikolas Magaña on 08-17-2024 Serum glucose measurement (mass/volume) 83 mg/dL 70-99 [facility] Hematocrit Auto (Bld) [Volum e fraction]Ordered By: Nikolas Magaña on 08-17-2024 Hematocrit (Bld) [Volume fraction] 34.6 % Low 37-47 [facility] Automated blood hematocrit (percentage) 34.6 % Low 37-47 [facility] Hemoglobin measurementOrdere d By: Nikolas Magaña on 08-17-2024 Hemoglobin (Bld) [Mass/Vol] 10.5 g/dL Low 12.0-15.0 [facility] Hemoglobin measurement 10.5 g/dL Low 12.0-15.0 [facility] Immature granulocytes/100 WB C Auto (Bld)Ordered By: Nikolas Magaña on 08-17-2024 Immature granulocytes/100 WBC (Bld) 1.800 % High 0.0-0.9 [facility] Automated immature granulocyte percentage 1.800 % High 0.0-0.9 [facility] Lymphocytes Auto (Unsp spec) [#/Vol]Ordered By: Nikolas Magaña on 08-17-2024 Absolute lymphocyte count 0.59 X10^3/uL Low 0.83-4.51 [facility] Lymphocytes/100 WBC Auto (Un sp spec)Ordered By: Nikolas Magaña on 08-17-2024 Automated lymphocyte count as percentage of total leukocytes 13.4 % Low 19-41 [facility] MCV (RBC) [Entitic vol]Order ed By: Nikolas Magaña on 08-17-2024 MCV (mean corpuscular volume) determination 93.5 fL 81-99 [facility] MCV (mean corpuscular volume ) determinationOrdered By: Nikolas Magaña on 08-17-2024 MCV (RBC) [Entitic vol] 93.5 fL 81-99 [facility] Mean corpuscular hemoglobin (MCH) determinationOrdered By: Nikolas Magaña on 08-17-2024 MCH (RBC) [Entitic mass] 28.4 pg 27.0-32.0 [facility] Mean corpuscular hemoglobin (MCH) determination 28.4 pg 27.0-32.0 [facility] Mean corpuscular hemoglobin concentration (MCHC) determinationOrdered By: Nikolas Magaña on 08-17-2024 Mean corpuscular hemoglobin concentration (MCHC) determination 30.3 g/dL Low 32-36 [facility] Mean platelet volume determi nationOrdered By: Nikolas Magaña on 08-17-2024 Mean platelet volume determination 9.2 fl 6.2-12.0 [facility] Monocyte percentageOrdered B y: Nikolas Magaña on 08-17-2024 Monocytes/100 WBC (Bld) 7.0 % 0-10 [facility] Monocyte percentage 7.0 % 0-10 [facility] Neutrophil percentageOrdered By: Nikolas Magaña on 08-17-2024 Neutrophils/100 WBC (Bld) 73.5 % High 47-70 [facility] Neutrophil percentage 73.5 % High 47-70 [facility] Nucleated red blood cell per centageOrdered By: Nikolas Magaña on 08-17-2024 Nucleated red blood cell percentage 0 % 0-5 [facility] Ovalocyte detectionOrdered B y: Nikolas Magaña on 08-17-2024 Ovalocytes LM Ql (Bld) 1+ [facility] Ovalocyte detection 1+ [facility] Platelet countOrdered By: Oscar Magaña on 08-17-2024 Platelets (Bld) [#/Vol] 146 10*3/uL Low 150-450 [facility] Platelet count 146 K/mm3 Low 150-450 [facility] Polychromasia LM Ql (Bld)Ord ered By: Nikolas Magaña on 08-17-2024 Blood polychromasia detection by light microscopy 2+ [facility] Potassium (Unsp spec) [Mass/ Vol]Ordered By: Nikolas Magaña on 08-17-2024 Potassium measurement (mass/volume) 4.7 mmol/L 3.3-5.1 [facility] Potassium measurement (mass/ volume)Ordered By: Nikolas Magaña on 08-17-2024 Potassium (Unsp spec) [Mass/Vol] 4.7 mmol/L 3.3-5.1 [facility] RBC Auto (Bld) [#/Vol]Ordere d By: Nikolas Magaña on 08-17-2024 RBC (Bld) [#/Vol] 3.70 10*6/uL Low 4.2-5.4 [facility] Automated blood erythrocyte count 3.70 M/mm3 Low 4.2-5.4 [facility] Serum creatinine measurement (mass/volume)Ordered By: Nikolas Magaña on 08-17-2024 Creatinine [Mass/Vol] 1.07 mg/dL 0.70-1.20 [facility] Serum glucose measurement (m ass/volume)Ordered By: Nikolas Magaña on 08-17-2024 Glucose [Mass/Vol] 83 mg/dL 70-99 [facility] Serum or plasma calcium megan urement (mass/volume)Ordered By: Nikolas Magaña on 08-17-2024 Calcium [Mass/Vol] 8.2 mg/dL 7.6-11.0 [facility] Serum or plasma urea nitroge n measurement (mass/volume)Ordered By: Nikolas Magaña on 08-17-2024 Urea nitrogen [Mass/Vol] 22 mg/dL High 09-14 [facility] Sodium levelOrdered By: Hemanth Magaña on 08-17-2024 Sodium [Moles/Vol] 133 mmol/L 133-145 [facility] Sodium level 133 mmol/L 133-145 [facility] Urea nitrogen [Mass/Vol]Orde red By: Nikolas Magaña on 08-17-2024 Serum or plasma urea nitrogen measurement (mass/volume) 22 mg/dL High 09-14 [facility] Venous duplex ultrasound rep ortOrdered By: Saul Silva on 08-17-2024 US Vein [facility] Other Phone: White blood cell (WBC) count Ordered By: Nikolas Magaña on 08-17-2024 WBC (Bld) [#/Vol] 4.4 10*3/uL 4.4-11.0 [facility] White blood cell (WBC) count 4.4 K/mm3 4.4-11.0 [facility] Basic Metabolic Profile (BMP )on 08-16-2024 BUN/CRE 25.9 RATIO High 10-20 [facility] Comment on above: Performed By: #### L 100.0100, L500.2500 ####[facility] [address] [place], [address] Calcium [Mass/Vol] 8.0 mg/dL Normal 7.6-11.0 [facility] Comment on above: Performed By: #### L 100.0100, L500.2500 ####[facility] [address] [place], [address] Chloride [Moles/Vol] 102 mmol/L Normal 98-108 [facility] Comment on above: Performed By: #### L 100.0100, L500.2500 ####[facility] [address] [place], [address] CO2 [Moles/Vol] 20.8 mmol/L Low 21.0-32.0 [facility] Comment on above: Performed By: #### L 100.0100, L500.2500 ####[facility] [address] [place], [address] Creatinine [Mass/Vol] 1.27 mg/dL High 0.70-1.20 [facility] Comment on above: Performed By: #### L 100.0100, L500.2500 ####[facility] [address] [place], [address] ECRCL 38.36 ml/min Low 50-250 [facility] Comment on above: Performed By: #### L 100.0100, L500.2500 ####[facility] [address] [place], [address] GAP 10 Normal 5-15 [facility] Comment on above: Performed By: #### L 100.0100, L500.2500 ####[facility] [address] [place], [address] GFR/1.73 sq M.predicted among non-blacks MDRD (S/P/Bld) [Vol rate/Area] 48 mL/min/{1.73_m2} Low >60 [facility] Comment on above: Result Comment: mL/m in/1.73m2 CKD-EPI Creatinine Equation (2020) Performed By: #### L 100.0100, L500.2500 ####[facility] [address] [place], [address] Glucose [Mass/Vol] 89 mg/dL Normal 70-99 [facility] Comment on above: Performed By: #### L 100.0100, L500.2500 ####[facility] [address] [place], [address] Potassium [Moles/Vol] 5.0 mmol/L Normal 3.3-5.1 [facility] Comment on above: Performed By: #### L 100.0100, L500.2500 ####[facility] [address] [place], [address] Sodium [Moles/Vol] 132 mmol/L Low 133-145 [facility] Comment on above: Performed By: #### L 100.0100, L500.2500 ####[facility] [address] [place], [address] Urea nitrogen [Mass/Vol] 33 mg/dL High 4-19 [facility] Comment on above: Performed By: #### L 100.0100, L500.2500 ####[facility] [address] [place], [address] Bedside Glucoseon 08-16-2024 FINGERSTICK GLU 24 mg/dL Invalid Interpretation Code 74-106 [facility] Comment on above: Result Comment: Dr George mathis FollowedMANAGEMENT OF PATIENT CARE PER NURSING PROTOCOL Performed By: #### L 501.080 ####[facility] [address] [place], [address] FINGERSTICK GLU 57 mg/dL Low 74-106 [facility] Comment on above: Result Comment: LUIZA GEMENT OF PATIENT CARE PER NURSING PROTOCOL Performed By: #### L 501.080 ####[facility] [address] [place], [address] FINGERSTICK GLU 80 mg/dL Normal 74-106 [facility] Comment on above: Result Comment: LUIZA GEMENT OF PATIENT CARE PER NURSING PROTOCOL Performed By: #### L 501.080 ####[facility] [address] [place], [address] CBC W/Diff, Automatedon - Anisocytosis Ql (Bld) 1+ Normal [facility] Comment on above: Performed By: #### L 100.0100, L500.2500 ####[facility] [address] [place], [address] PLT EST A Normal [facility] Comment on above: Performed By: #### L 100.0100, L500.2500 ####[facility] [address] [place], [address] POLYCHROMASIA 1+ Normal [facility] Comment on above: Performed By: #### L 100.0100, L500.2500 ####[facility] [address] [place], [address] Glucoseon 08-16-2024 Glucose [Mass/Vol] 91 mg/dL Normal 70-99 [facility] Comment on above: Performed By: #### L 501.0100 ####[facility] [address] [place], [address] Glucose [Mass/Vol] 109 mg/dL High 70-99 [facility] Comment on above: Performed By: #### L 501.0100 ####[facility] [address] [place], [address] Glucose measurement at bedsi deOrdered By: Nikolas Magaña on 08-16-2024 Glucose [Mass/Vol] 24 mg/dL Low 74-106 [facility] Glucose measurement at bedside 24 mg/dL Low 74-106 [facility] Platelet estimateOrdered By: Nikolas Magaña on 08-16-2024 Platelets LM Ql (Bld) A [facility] Platelets LM Ql (Bld)Ordered By: Nikolas Magaña on 08-16-2024 Platelet estimate A [facility] Amylase (Body fld) [Catalyti c activity/Vol]Ordered By: Nikolas Magaña on 08-15-2024 Amylase body fluid 30 U/L . [facility] Amylase body fluidOrdered By : Nikolas Magaña on 08-15-2024 Amylase (Body fld) [Catalytic activity/Vol] 30 U/L . [facility] Anaerobic cultureOrdered By: Nikolas Magaña on 08-15-2024 Bacteria identified Anaer cx Nom (Unsp spec) No growth in 5 days. [facility] Appearance (Body fld)Ordered By: Nikolas Magaña on 08-15-2024 Body fluid appearance (nominal result) CLEAR [facility] Bacteria identified Anaer cx Nom (Unsp spec)Ordered By: Nikolas Magaña on 08-15-2024 Anaerobic culture No growth in 5 days. [facility] Bedside Glucoseon 08-15-2024 FINGERSTICK GLU 82 mg/dL Normal 74-106 [facility] Comment on above: Result Comment: LUIZA GEMENT OF PATIENT CARE PER NURSING PROTOCOL Performed By: #### L 501.080 ####[facility] [address] [facility] [address] FINGERSTICK GLU 92 mg/dL Normal 74-106 [facility] Comment on above: Result Comment: LUIZA GEMENT OF PATIENT CARE PER NURSING PROTOCOL Performed By: #### L 501.080 ####[facility] [address] [place], [address] FINGERSTICK GLU 90 mg/dL Normal 74-106 [facility] Comment on above: Result Comment: LUIZA GEMENT OF PATIENT CARE PER NURSING PROTOCOL Performed By: #### L 501.080 ####[facility] [address] [place], [address] FINGERSTICK GLU 70 mg/dL Low 74-106 [facility] Comment on above: Result Comment: LUIZA GEMENT OF PATIENT CARE PER NURSING PROTOCOL Performed By: #### L 501.080 ####[facility] [address] [place], [address] FINGERSTICK GLU 104 mg/dL Normal 74-106 [facility] Comment on above: Result Comment: LUIZA DIAZ OF PATIENT CARE PER NURSING PROTOCOL Performed By: #### L 501.080 ####[facility] [address] [place], [place], [id number] Body Fluid Cell Count+Diffon 08-15-2024 Lymphocytes (Bld) [#/Vol] 32 10*3/uL Normal [facility] Comment on above: Order Comment: The r eference interval(s) and other method performancespecifications are unavailable for this body fluid.Comparison of the result with concentration in the blood,serum, or plasma is recommended. Performed By: #### L 350.1000, L504.0250, L503.0300, L200.0200, L503.0100, M100.2900, M100.2000, M100.4001 ####[facility] [address] [place], [place], [phone] MESOTHELIAL 4 Normal [facility] Comment on above: Order Comment: The r eference interval(s) and other method performancespecifications are unavailable for this body fluid.Comparison of the result with concentration in the blood,serum, or plasma is recommended. Performed By: #### L 350.1000, L504.0250, L503.0300, L200.0200, L503.0100, M100.2900, M100.2000, M100.4001 ####[facility] [address] [place], [place], [address]([phone] MONO/BF 60 Normal [facility] Comment on above: Order Comment: The r eference interval(s) and other method performancespecifications are unavailable for this body fluid.Comparison of the result with concentration in the blood,serum, or plasma is recommended. Performed By: #### L 350.1000, L504.0250, L503.0300, L200.0200, L503.0100, M100.2900, M100.2000, M100.4001 ####[facility] [address] [place], [place], [phone] PMN 4 Normal [facility] Comment on above: Order Comment: The r eference interval(s) and other method performancespecifications are unavailable for this body fluid.Comparison of the result with concentration in the blood,serum, or plasma is recommended. Performed By: #### L 350.1000, L504.0250, L503.0300, L200.0200, L503.0100, M100.2900, M100.2000, M100.4001 ####[facility] [address] [place], [address] Body fluid appearance (nomin al result)Ordered By: Nikolas Magaña on 08-15-2024 Appearance (Body fld) CLEAR [facility] Body fluid color determinati onOrdered By: Nikolas aMgaña on 08-15-2024 Color (Body fld) LT YEL [facility] Body fluid cultureOrdered By : Nikolas Magaña on 08-15-2024 Body fluid culture No growth aerobically. [facility] Body fluid lactate dehydroge nase measurement (enzymatic activity/volume) by pyruvateOrdered By: Nikolas Magaña on 08-15-2024 LDH Pyruvate to lactate reaction (Body fld) [Catalytic activity/Vol] 51 Units/L Not Establ. [facility] Body fluid leukocytes count (number/volume)Ordered By: Nikolas Magaña on 08-15-2024 WBC (Body fld) [#/Vol] 0.023 10*3/uL [facility] Body fluid lymphocytes/100 l eukocytesOrdered By: Nikolas Magaña on 08-15-2024 Lymphocytes/100 WBC (Body fld) 32 % [facility] Body fluid mesothelial cell percentageOrdered By: Nikolas Magaña on 08-15-2024 Mesothelial cells/100 WBC (Body fld) 4 % [facility] Body fluid mononuclear cell countOrdered By: Nikolas Magaña on 08-15-2024 Body fluid mononuclear cell count 0.021 10^3/uL [facility] Body fluid mononuclear cell percentageOrdered By: Nikolas Magaña on 08-15-2024 Mononuclear cells/100 WBC (Body fld) 91.3 % [facility] Body fluid pHOrdered By: Myke Magaña on 08-15-2024 pH (Body fld) 7.3 [pH] Not Estab. [facility] Body fluid polymorphonuclear leukocyte countOrdered By: Nikolas Magaña on 08-15-2024 Body fluid polymorphonuclear leukocyte count 0.002 10^3/uL [facility] Body fluid protein measureme nt (mass/volume)Ordered By: Nikolas Magaña on 08-15-2024 Protein (Body fld) [Mass/Vol] 1.9 g/dL Not Establ. [facility] Body fluid segmented neutrop hils count (number/volume)Ordered By: Nikolas Magaña on 08-15-2024 Segmented neutrophils (Body fld) [#/Vol] 4 % [facility] Body fluid segmented neutrophils count (number/volume) 4 % [facility] Body fluid total cell countO rdered By: Nikolas Magaña on 08-15-2024 Cells Counted Total (Body fld) [#] 0.024 10^3/ul High 0.000-0.00 0 [facility] CBC W/Diff, Automatedon 07-28 Anisocytosis Ql (Bld) 1+ Normal [facility] Comment on above: Performed By: #### L 500.4100, L501.9520, L503.7505, L100.0100 ####[facility] [address] [place], [address] Calculated very low density lipoprotein (VLDL) cholesterol measurementOrdered By: Nikolas Magaña on 08-15-2024 Calculated very low density lipoprotein (VLDL) cholesterol measurement 14 mg/dL 5-40 [facility] Calculated very low density lipoprotein (VLDL) cholesterol measurement 14 mg/dL -40 [facility] Cells Counted Total (Body fl d) [#]Ordered By: Nikolas Magaña on 08-15-2024 Body fluid total cell count 0.024 10^3/ul High 0.000-0.00 0 [facility] Chest Insp/Exp 2 Viewon 07-28 Chest Insp/Exp [address] [facility] Cholesterol [Mass/Vol]Ordere d By: Nikolas Magaña on 08-15-2024 Serum or plasma cholesterol measurement (mass/volume) 62 mg/dL <201 [facility] Cholesterol in HDL [Mass/Vol ]Ordered By: Nikolas Magaña on 08-15-2024 Serum or plasma cholesterol in HDL measurement (mass/volume) 25 mg/dL Low >40 [facility] Color (Body fld)Ordered By: Nikolas Magaña on 08-15-2024 Body fluid color determination LT YEL [facility] Consultation - Nephrologyon 08-15-2024 Consultation - Nephrology Normal [facility] Cytology report Cyto stain D oc (Body fld)Ordered By: Nikolas Magaña on 08-15-2024 Cytology report of Body fluid Cyto stain SEE PATHOLOGY REPORT [facility] Cytology report of Body flui d Cyto stainOrdered By: Nikolas Magaña on 08-15-2024 Cytology report Cyto stain Doc (Body fld) SEE PATHOLOGY REPORT [facility] Cytology, Body Fluid / CSFon 08-15-2024 CYTOLOGY,BF/CSF SEE PATHOLOGY REPORT Normal [facility] Comment on above: Result Comment: Spec imen submitted to Anatomical Pathology Department fortesting. Performed By: #### L 350.1000, L504.0250, L503.0300, L200.0200, L503.0100, M100.2900, M100.2000, M100.4001 ####[facility] [address] [place], [place], [phone] Echocardiogram study reportO rdered By: Tevin Nicholas on 08-15-2024 Study report [facility] Work Phone: [phone] Glucose, Body Fluidon 2024 GLUC, BODY FLD 111 mg/dL Normal Not Establ. [facility] Comment on above: Performed By: #### L 350.1000, L504.0250, L503.0300, L200.0200, L503.0100, M100.2900, M100.2000, M100.4001 ####[facility] [address] [place], [place], [phone] Glucose, body fluidOrdered B y: Nikolas Magaña on 08-15-2024 Glucose, body fluid 111 mg/dL Not Establ. [facility] Gram Stainon 08-15-2024 GS Centrifuged Specimen ? Culture performed on centrifuged specimen Gram Stain Rare White Blood Cells No organisms seen Normal [facility] Comment on above: Performed By: #### L 350.1000, L504.0250, L503.0300, L200.0200, L503.0100, M100.2900, M100.2000, M100.4001 ####[facility] [address] [place], [address] Gram stainOrdered By: Robb Magaña on 08-15-2024 Microscopic observation Gram stain Nom (Unsp spec) [facility] L503.7505on 08-15-2024 Natriuretic peptide B (Bld) [Mass/Vol] 49982 pg/mL High <=900 [facility] Comment on above: Result Comment: Hear t Failure Unlikely: < 300 pg/mLHeart Failure Likely< 50 Years: > 450 pg/mL50-75 Years: > 900 pg/mL>75 Years: > 1800 pg/mL Performed By: #### L 500.4100, L501.9520, L503.7505, L100.0100 ####[facility] [address] [place], [address] LDH Pyruvate to lactate reac tion (Body fld) [Catalytic activity/Vol]Ordered By: Nikolas Magaña on 08-15-2024 Body fluid lactate dehydrogenase measurement (enzymatic activity/volume) by pyruvate 51 Units/L Not Establ. [facility] LDH,Body Fluidon 08-15-2024 LDH,BF 51 Units/L Normal Not Establ. [facility] Comment on above: Performed By: #### L 350.1000, L504.0250, L503.0300, L200.0200, L503.0100, M100.2900, M100.2000, M100.4001 ####[facility] [address] [place], [address] LDL calc ser/plasOrdered By: Nikolas Magaña on 08-15-2024 Cholesterol in LDL [Mass/Vol] 23 mg/dL [facility] LDL calc ser/plas 23 mg/dL [facility] Lipid Profileon 08-15-2024 CHOL:HDL 2.48 Normal [facility] Comment on above: Performed By: #### L 500.4100, L501.9520, L503.7505, L100.0100 ####[facility] [address] [place], [address] Cholesterol [Mass/Vol] 62 mg/dL Normal <=200 [facility] Comment on above: Result Comment: Chol esterol level, Desirable <200 mg/dLBorderline high cholesterol 200-239 mg/dLHigh cholesterol >=240 mg/dLRecommendations of the NCEP Adult Treatment Panel for thefollowing risk-cutoff thresholds for the [place] Americantrinity health. Performed By: #### L 500.4100, L501.9520, L503.7505, L100.0100 ####[facility] [address] [place], [address] Cholesterol in HDL [Mass/Vol] 25 mg/dL Low [facility] Comment on above: Result Comment: Lucila onal Cholesterol Education Program (NCEP) guidelines:<40 mg/dL: Low HDL-cholesterol (major risk factor for CHD)>= 60 mg/dL: High HDL-cholesterol (negative risk factor forCHD)HDL-cholesterol is affected by a number of factors, e.g.smoking, exercise, hormones, sex and age. Performed By: #### L 500.4100, L501.9520, L503.7505, L100.0100 ####[facility] [address] [place], [address] Cholesterol in LDL [Mass/Vol] 23 mg/dL Normal [facility] Comment on above: Result Comment: Bord ymkqcy=546-104 mg/dL Higher Xvbs=872 mg/dL or greater Performed By: #### L 500.4100, L501.9520, L503.7505, L100.0100 ####[facility] [address] [place], [address] Cholesterol in VLDL [Mass/Vol] 14 mg/dL Normal 5-40 [facility] Comment on above: Performed By: #### L 500.4100, L501.9520, L503.7505, L100.0100 ####[facility] [address] [place], [address] Triglyceride [Mass/Vol] 71 mg/dL Normal [facility] Comment on above: Result Comment: The drugs N-Acetylcysteine and Metamizole may falselydepress this assay.Normal range: <150 mg/dLBorderline High: 150-199 mg/dLHigh: 200-499 mg/dLVery High: >500 mg/dL Performed By: #### L 500.4100, L501.9520, L503.7505, L100.0100 ####[facility] [address] [place], [address] Lymphocytes/100 WBC (Body fl d)Ordered By: Nikolas Magaña on 08-15-2024 Body fluid lymphocytes/100 leukocytes 32 % [facility] Modified Barium Swallow Stud yon 08-15-2024 Modified Barium Swallow Study Normal [facility] Monocyte detectionOrdered By : Nikolas Magaña on 08-15-2024 Monocytes/100 WBC (Bld) 60 % [facility] Monocyte detection 60 % [facility] Mononuclear cells/100 WBC (B richie fld)Ordered By: Nikolas Magaña on 08-15-2024 Body fluid mononuclear cell percentage 91.3 % [facility] No Panel InformationOrdered By: Nikolas Magaña on 08-15-2024 6 /mm3 [facility] SEE COMMENT [facility] 69[address] pg/mL High <900 [facility] Operative Reporton Operative Report Normal [facility] Pathologist interpretation ( Body fld) [Interp]Ordered By: Nikolas Magaña on 08-15-2024 Pathologist interpretation of Body fluid tests May follow [facility] Pathologist interpretation o f Body fluid testsOrdered By: Nikolas Magaña on 08-15-2024 Pathologist interpretation (Body fld) [Interp] May follow [facility] Polymorphonuclear (PMN) leuk ocyte countOrdered By: Nikolas Magaña on 08-15-2024 Polymorphonuclear (PMN) leukocyte count 8.7 % [facility] Protein (Body fld) [Mass/Vol ]Ordered By: Nikolas Magaña on 08-15-2024 Body fluid protein measurement (mass/volume) 1.9 g/dL Not Establ. [facility] Protein, Body Fluidon 2024 Protein [Mass/Vol] 1.9 g/dL Normal Not Establ. [facility] Comment on above: Performed By: #### L 350.1000, L504.0250, L503.0300, L200.0200, L503.0100, M100.2900, M100.2000, M100.4001 ####[facility] [address] [place], [address] Screening total cholesterol/ high density lipoprotein (HDL) cholesterol ratioOrdered By: Nikolas Magaña on 08-15-2024 Screening total cholesterol/high density lipoprotein (HDL) cholesterol ratio 2.48 [facility] Serum or plasma cholesterol in HDL measurement (mass/volume)Ordered By: Nikolas Magaña on 08-15-2024 Cholesterol in HDL [Mass/Vol] 25 mg/dL Low >40 [facility] Serum or plasma cholesterol measurement (mass/volume)Ordered By: Nikolas Magaña on 08-15-2024 Cholesterol [Mass/Vol] 62 mg/dL <201 [facility] Special Stain Group IIon Special Stain Group II Normal [facility] Comment on above: Performed By: #### P SSII ####[facility] [address] [place], [address] Specimen source Nom (Body fl d)Ordered By: Nikolas Magaña on 08-15-2024 Specimen source identification of body fluid THORACENTESIS [facility] Specimen source identificati on of body fluidOrdered By: Nikolas Magaña on 08-15-2024 Specimen source Nom (Body fld) THORACENTESIS [facility] TSH DL <= 0.005 mIU/L QnOrde red By: Nikolas Magaña on 08-15-2024 TSH Qn 10.600 uIU/mL High 0.300-4.20 0 [facility] Serum or plasma thyroid stimulating hormone (TSH) measurement by high sensitivity met 10.600 uIU/mL High 0.300-4.20 0 [facility] Thyroid Stim Hormone (TSH)on 08-15-2024 TSH 10.600 uIU/mL High 0.300-4.20 0 [facility] Comment on above: Performed By: #### L 500.4100, L501.9520, L503.7505, L100.0100 ####[facility] [address] [place], [place], [id number] Triglycerides measurementOrd ered By: Nikolas Magaña on 08-15-2024 Triglycerides measurement 71 mg/dL <199 [facility] WBC (Body fld) [#/Vol]Ordere d By: Nikolas Magaña on 08-15-2024 Body fluid leukocytes count (number/volume) 0.023 10^3/uL [facility] pH (Body fld)Ordered By: Myke Magaña on 08-15-2024 Body fluid pH 7.3 Not Estab. [facility] 12 Lead EKGon 08-14-2024 12 Lead EKG Normal [facility] ALP [Catalytic activity/Vol] Ordered By: Ciaran Rodrigez on 08-14-2024 Serum or plasma alkaline phosphatase measurement 71 U/L 35-104 [facility] ALT [Catalytic activity/Vol] Ordered By: Ciaran Rodrigez on 08-14-2024 Serum or plasma alanine aminotransferase (ALT) measurement 9 U/L <35 [facility] Absolute neutrophil countOrd ered By: Ciaran Rodrigez on 08-14-2024 Absolute neutrophil count 7.1 X10^3/uL 2.0-7.7 [facility] Activated partial thrombopla stin time (aPTT) in platelet poor plasma by coagulation aOrdered By: Ciaran Rodrigez on 08-14-2024 aPTT Coag (PPP) [Time] 33.6 s 24.1-36.2 [facility] Albumin [Mass/Vol]Ordered By : Ciaran Rodrigez on 08-14-2024 Serum or plasma albumin measurement (mass/volume) 2.0 g/dL Low 3.4-4.8 [facility] Albumin/Globulin [Mass ratio ]Ordered By: Ciaran Rodrigez on 08-14-2024 Serum or plasma albumin/globulin mass ratio 0.6 RATIO Low 0.9-2.4 [facility] Anion gap [Moles/Vol]Ordered By: Ciaran Rodrigez on 08-14-2024 Anion gap in Serum or Plasma 9 - [facility] Anion gap [Moles/Vol]Ordered By: Millie Massey on 08-14-2024 Anion gap in Serum or Plasma 7 - [facility] Anion gap in Serum or Plasma Ordered By: Millie Massey on 08-14-2024 Anion gap [Moles/Vol] 7 mmol/L 10-10 [facility] Arterial patency Wrist arter y --pre arterial punctureOrdered By: Ciaran Walsh on 08-14-2024 Assessment of wrist artery patency prior to arterial puncture Positive [facility] Assessment of wrist artery p atency prior to arterial punctureOrdered By: Ciaran Rodrigez on 08-14-2024 Arterial patency Wrist artery --pre arterial puncture Positive [facility] BUN/creatinine ratioOrdered By: Ciaran Rodrigez on 08-14-2024 BUN/creatinine ratio 29.1 RATIO High 10 [facility] BUN/creatinine ratioOrdered By: Millie Massey on 08-14-2024 Urea nitrogen/Creatinine [Mass ratio] 28.9 mg/mg High 10 [facility] BUN/creatinine ratio 28.9 RATIO High 03-17 [facility] Base excess Calc (BldV) [Mol es/Vol]Ordered By: Ciaran Rodrigez on 08-14-2024 Blood base excess determination -3 mmol/L Low -2-2 [facility] Basic Metabolic Profile (BMP )on 08-14-2024 BUN/CRE 28.9 RATIO High 10 [facility] Comment on above: Order Comment: 206 Performed By: #### L 500.4100, L100.4500, L506.1001, L500.2500, L501.9520, L100.0500, L501.5200, L503.0106 ####[facility] [address] [place], [address] Calcium [Mass/Vol] 7.8 mg/dL Normal 7.6-11.0 [facility] Comment on above: Order Comment: 206 Performed By: #### L 500.4100, L100.4500, L506.1001, L500.2500, L501.9520, L100.0500, L501.5200, L503.0106 ####[facility] [address] [place], [address] Chloride [Moles/Vol] 105 mmol/L Normal 98-108 [facility] Comment on above: Order Comment: 206 Performed By: #### L 500.4100, L100.4500, L506.1001, L500.2500, L501.9520, L100.0500, L501.5200, L503.0106 ####[facility] [address] [place], [address] CO2 [Moles/Vol] 19.9 mmol/L Low 21.0-32.0 [facility] Comment on above: Order Comment: 206 Performed By: #### L 500.4100, L100.4500, L506.1001, L500.2500, L501.9520, L100.0500, L501.5200, L503.0106 ####[facility] [address] [place], [address] Creatinine [Mass/Vol] 1.34 mg/dL High 0.70-1.20 [facility] Comment on above: Order Comment: 206 Performed By: #### L 500.4100, L100.4500, L506.1001, L500.2500, L501.9520, L100.0500, L501.5200, L503.0106 ####[facility] [address] [place], [address] GAP 7 Normal 5-15 [facility] Comment on above: Order Comment: 206 Performed By: #### L 500.4100, L100.4500, L506.1001, L500.2500, L501.9520, L100.0500, L501.5200, L503.0106 ####[facility] [address] [place], [address] GFR/1.73 sq M.predicted among non-blacks MDRD (S/P/Bld) [Vol rate/Area] 45 mL/min/{1.73_m2} Low >60 [facility] Comment on above: Order Comment: 206 Result Comment: mL/m in/1.73m2 CKD-EPI Creatinine Equation (2020) Performed By: #### L 500.4100, L100.4500, L506.1001, L500.2500, L501.9520, L100.0500, L501.5200, L503.0106 ####[facility] [address] [place], [address] Glucose [Mass/Vol] 84 mg/dL Normal 70-99 [facility] Comment on above: Order Comment: 206 Performed By: #### L 500.4100, L100.4500, L506.1001, L500.2500, L501.9520, L100.0500, L501.5200, L503.0106 ####[facility] [address] [place], [address] Potassium [Moles/Vol] 5.3 mmol/L High 3.3-5.1 [facility] Comment on above: Order Comment: 206 Result Comment: Hemo lysis present, Results??could be affected.?? Performed By: #### L 500.4100, L100.4500, L506.1001, L500.2500, L501.9520, L100.0500, L501.5200, L503.0106 ####[facility] [address] [place], [address] Sodium [Moles/Vol] 132 mmol/L Low 133-145 [facility] Comment on above: Order Comment: 206 Performed By: #### L 500.4100, L100.4500, L506.1001, L500.2500, L501.9520, L100.0500, L501.5200, L503.0106 ####[facility] [address] [place], [address] Urea nitrogen [Mass/Vol] 39 mg/dL High - [facility] Comment on above: Order Comment: 206 Performed By: #### L 500.4100, L100.4500, L506.1001, L500.2500, L501.9520, L100.0500, L501.5200, L503.0106 ####[facility] [address] [place], [address] BUN Normal - [facility] Comment on above: Result Comment: Canc elled via OM: Order cancelled - Patient discharged Performed By: #### L 500.2500, L100.0100 ####[facility] [address] [place], [address] BUN/CRE Normal - [facility] Comment on above: Result Comment: Canc elled via OM: Order cancelled - Patient discharged Performed By: #### L 500.2500, L100.0100 ####[facility] [address] [place], [address] Calcium Normal 7.6-11.0 [facility] Comment on above: Result Comment: Canc elled via OM: Order cancelled - Patient discharged Performed By: #### L 500.2500, L100.0100 ####[facility] [address] [place], [address] CL Normal 98-108 [facility] Comment on above: Result Comment: Canc elled via OM: Order cancelled - Patient discharged Performed By: #### L 500.2500, L100.0100 ####[facility] [address] [place], [address] CO2 Normal 21.0-32.0 [facility] Comment on above: Result Comment: Canc elled via OM: Order cancelled - Patient discharged Performed By: #### L 500.2500, L100.0100 ####[facility] [address] [place], [address] CREAT,SERUM Normal 0.70-1.20 [facility] Comment on above: Result Comment: Canc elled via OM: Order cancelled - Patient discharged Performed By: #### L 500.2500, L100.0100 ####[facility] [address] [place], [address] eGFR Normal >60 [facility] Comment on above: Result Comment: Canc elled via OM: Order cancelled - Patient discharged Performed By: #### L 500.2500, L100.0100 ####[facility] [address] [place], [address] GAP Normal 5-15 [facility] Comment on above: Result Comment: Canc elled via OM: Order cancelled - Patient discharged Performed By: #### L 500.2500, L100.0100 ####[facility] [address] [place], [address] GLU Normal 70-99 [facility] Comment on above: Result Comment: Canc elled via OM: Order cancelled - Patient discharged Performed By: #### L 500.2500, L100.0100 ####[facility] [address] [place], [address] Potassium Normal 3.3-5.1 [facility] Comment on above: Result Comment: Canc elled via OM: Order cancelled - Patient discharged Performed By: #### L 500.2500, L100.0100 ####[facility] [address] [place], [address] Basic Metabolic Profile (BMP) Normal 133-145 [facility] Comment on above: Result Comment: Canc elled via OM: Order cancelled - Patient discharged Performed By: #### L 500.2500, L100.0100 ####[facility] [address] [place], [address] Basophil percentageOrdered B y: Ciaran Rodrigez on 08-14-2024 Basophil percentage 0.6 % 0-1 [facility] Bedside Glucoseon 08-14-2024 FINGERSTICK GLU 137 mg/dL High 74-106 [facility] Comment on above: Result Comment: LUIZA DIAZ OF PATIENT CARE PER NURSING PROTOCOL Performed By: #### L 501.080 ####[facility] [address] [place], [address] Bilirubin Test strip Ql (U)O rdered By: Ciaran Rodrigez on 08-14-2024 Bilirubin Ql (U) Negative Negative [facility] Bilirubin, totalOrdered By: Ciaran Rodrigez on 08-14-2024 Bilirubin [Mass/Vol] 0.18 mg/dL 0.00-1.30 [facility] Bilirubin, total 0.18 mg/dL 0.00-1.30 [facility] Blood Gases by CPSon 025 LINDA TEST Positive Normal [facility] Comment on above: Performed By: #### L 9000.0800 ####[facility] [address] [place], [address] Base excess Calc (Bld) [Moles/Vol] -3 mmol/L Low -2 to +2 [facility] Comment on above: Performed By: #### L 9000.0800 ####[facility] [address] [place], [address] Blood Gas Type ART Normal [facility] Comment on above: Performed By: #### L 8999.08 ####[facility] [address] [place], [address] CO2 [Moles/Vol] 23 mmol/L Normal [facility] Comment on above: Performed By: #### L 8999.0800 ####[facility] [address] [place], [address] FI02 44.0 Normal [facility] Comment on above: Performed By: #### L 8999.0800 ####[facility] [address] [place], [address] HCO3 (Bld) [Moles/Vol] 22.0 mmol/L Normal 22-26 [facility] Comment on above: Performed By: #### L 8999.0800 ####[facility] [address] [place], [address] Mode Not entered Normal [facility] Comment on above: Performed By: #### L 8999.0800 ####[facility] [address] [place], [address] O2 Delivery Dev Cannula Normal [facility] Comment on above: Performed By: #### L 8999.0800 ####[facility] [address] [place], [address] pCO2 39.1 mmHg Normal 35-45 [facility] Comment on above: Performed By: #### L 8999.0800 ####[facility] [address] [place], [address] pH (Bld) 7.36 [pH] Normal 7.35-7.45 [facility] Comment on above: Performed By: #### L 8999.0800 ####[facility] [address] [place], [place], [address] PO2 105 mmHG High 75-100 [facility] Comment on above: Performed By: #### L 9000.0800 ####[facility] [address] [place], [address] SITE R Radial Normal [facility] Comment on above: Performed By: #### L 9000.0800 ####[facility] [address] [place], [address] SO2 98 Normal 95-99 [facility] Comment on above: Performed By: #### L 9000.0800 ####[facility] [address] [place], [address] Blood base excess determinat ionOrdered By: Ciaran Rodrigez on 08-14-2024 Base excess Calc (BldV) [Moles/Vol] -3 mmol/L Low -2-2 [facility] Blood bicarbonate measuremen tOrdered By: Ciaran Rodrigez on 08-14-2024 HCO3 (Bld) [Moles/Vol] 22.0 mmol/L [facility] Blood bicarbonate measurement 22.0 mmol/L [facility] Blood cultureOrdered By: Adelfo Rodrigez on 08-14-2024 Bacteria identified Cx Nom (Bld) No growth in 5 days. [facility] Blood culture No growth in 5 days. [facility] Bacteria identified Cx Nom (Bld) No growth in 5 days. [facility] Blood culture No growth in 5 days. [facility] Blood manual differential co mment interpretation (narrative result)Ordered By: Millie Massey on 08-14-2024 Manual differential comment Horace (Bld) [Interp] COMMENT [facility] Blood polychromasia detectio n by light microscopyOrdered By: Ciaran Walsh on 08-14-2024 Blood polychromasia detection by light microscopy RARE [facility] CBC W/Diff, Automatedon 07-27 Anisocytosis Ql (Bld) RARE Normal [facility] Comment on above: Performed By: #### L 100.0100, L500.4050 ####[facility] [address] [place], [address] POLYCHROMASIA RARE Normal [facility] Comment on above: Performed By: #### L 100.0100, L500.4050 ####[facility] [address] [place], [address] Absolute Neut Normal 2.0-7.7 [facility] Comment on above: Result Comment: Canc elled via OM: Order cancelled - Patient discharged Performed By: #### L 500.2500, L100.0100 ####[facility] [address] [place], [address] HCT Normal 37-47 [facility] Comment on above: Result Comment: Canc elled via OM: Order cancelled - Patient discharged Performed By: #### L 500.2500, L100.0100 ####[facility] [address] [place], [address] HGB Normal 12.0-15.0 [facility] Comment on above: Result Comment: Canc elled via OM: Order cancelled - Patient discharged Performed By: #### L 500.2500, L100.0100 ####[facility] [address] [place], [address] MCH Normal 27.0-32.0 [facility] Comment on above: Result Comment: Canc elled via OM: Order cancelled - Patient discharged Performed By: #### L 500.2500, L100.0100 ####[facility] [address] [place], [address] MCHC Normal 32-36 [facility] Comment on above: Result Comment: Canc elled via OM: Order cancelled - Patient discharged Performed By: #### L 500.2500, L100.0100 ####[facility] [address] [place], [address] MCV Normal 81-99 [facility] Comment on above: Result Comment: Canc elled via OM: Order cancelled - Patient discharged Performed By: #### L 500.2500, L100.0100 ####[facility] [address] [place], [address] NEUT% Normal 47-70 [facility] Comment on above: Result Comment: Canc elled via OM: Order cancelled - Patient discharged Performed By: #### L 500.2500, L100.0100 ####[facility] [address] [place], [address] PLT Normal 150-450 [facility] Comment on above: Result Comment: Canc elled via OM: Order cancelled - Patient discharged Performed By: #### L 500.2500, L100.0100 ####[facility] [address] [place], [address] RBC Normal 4.2-5.4 [facility] Comment on above: Result Comment: Canc elled via OM: Order cancelled - Patient discharged Performed By: #### L 500.2500, L100.0100 ####[facility] [address] [place], [address] RDW CV Normal 11.6-14.6 [facility] Comment on above: Result Comment: Canc elled via OM: Order cancelled - Patient discharged Performed By: #### L 500.2500, L100.0100 ####[facility] [address] [place], [address] RDW SD Normal 35.1-43.9 [facility] Comment on above: Result Comment: Canc elled via OM: Order cancelled - Patient discharged Performed By: #### L 500.2500, L100.0100 ####[facility] [address] [place], [address] WBC Normal 4.4-11.0 [facility] Comment on above: Result Comment: Canc elled via OM: Order cancelled - Patient discharged Performed By: #### L 500.2500, L100.0100 ####[facility] [address] [place], [address] CBC-Complete Blood Cnt No Di ffon 08-14-2024 Erythrocyte distribution width (RBC) [Ratio] 21.0 % High 11.6-14.6 [facility] Comment on above: Order Comment: 206 Performed By: #### L 500.4100, L100.4500, L506.1001, L500.2500, L501.9520, L100.0500, L501.5200, L503.0106 ####[facility] [address] [place], [address] Hematocrit (Bld) [Volume fraction] 30.9 % Low 37-47 [facility] Comment on above: Order Comment: 206 Performed By: #### L 500.4100, L100.4500, L506.1001, L500.2500, L501.9520, L100.0500, L501.5200, L503.0106 ####[facility] [address] [place], [address] Hemoglobin (Bld) [Mass/Vol] 9.2 g/dL Low 12.0-15.0 [facility] Comment on above: Order Comment: 206 Performed By: #### L 500.4100, L100.4500, L506.1001, L500.2500, L501.9520, L100.0500, L501.5200, L503.0106 ####[facility] [address] [place], [address] MCH (RBC) [Entitic mass] 27.6 pg Normal 27.0-32.0 [facility] Comment on above: Order Comment: 206 Performed By: #### L 500.4100, L100.4500, L506.1001, L500.2500, L501.9520, L100.0500, L501.5200, L503.0106 ####[facility] [address] [place], [place], [id number] MCHC (RBC) [Mass/Vol] 29.8 g/dL Low 32-36 [facility] Comment on above: Order Comment: 206 Performed By: #### L 500.4100, L100.4500, L506.1001, L500.2500, L501.9520, L100.0500, L501.5200, L503.0106 ####[facility] [address] [place], [place], [id number] MCV (RBC) [Entitic vol] 92.8 fL Normal 81-99 [facility] Comment on above: Order Comment: 206 Performed By: #### L 500.4100, L100.4500, L506.1001, L500.2500, L501.9520, L100.0500, L501.5200, L503.0106 ####[facility] [address] [place], [place], [id number] Platelet mean volume (Bld) [Entitic vol] 10.8 fL Normal 6.2-12.0 [facility] Comment on above: Order Comment: 206 Performed By: #### L 500.4100, L100.4500, L506.1001, L500.2500, L501.9520, L100.0500, L501.5200, L503.0106 ####[facility] [address] [place], [place], [phone] Platelets (Bld) [#/Vol] 137 10*3/uL Low 150-450 [facility] Comment on above: Order Comment: 206 Performed By: #### L 500.4100, L100.4500, L506.1001, L500.2500, L501.9520, L100.0500, L501.5200, L503.0106 ####[facility] [address] [place], [address] RBC (Bld) [#/Vol] 3.33 10*6/uL Low 4.2-5.4 [facility] Comment on above: Order Comment: 206 Performed By: #### L 500.4100, L100.4500, L506.1001, L500.2500, L501.9520, L100.0500, L501.5200, L503.0106 ####[facility] [address] [place], [address] RDW SD 69.6 fl High 35.1-43.9 [facility] Comment on above: Order Comment: 206 Performed By: #### L 500.4100, L100.4500, L506.1001, L500.2500, L501.9520, L100.0500, L501.5200, L503.0106 ####[facility] [address] [place], [address] WBC (Bld) [#/Vol] 4.1 10*3/uL Low 4.4-11.0 [facility] Comment on above: Order Comment: 206 Performed By: #### L 500.4100, L100.4500, L506.1001, L500.2500, L501.9520, L100.0500, L501.5200, L503.0106 ####[facility] [address] [place], [address] Calcium [Mass/Vol]Ordered By : Ciaran Rodrigez on 08-14-2024 Serum or plasma calcium measurement (mass/volume) 7.8 mg/dL 7.6-11.0 [facility] Calcium [Mass/Vol]Ordered By : Millie Massey on 08-14-2024 Serum or plasma calcium measurement (mass/volume) 7.8 mg/dL 7.6-11.0 [facility] Calcium oxalate crystals LM Ql (Urine sed)Ordered By: Ciaran Rodrigez on 08-14-2024 Calcium oxalate crystals detection in urine sediment by light microscopy 1+ /hpf [facility] Calcium oxalate crystals det ection in urine sediment by light microscopyOrdered By: Ciaran Rodrigez on 08-14-2024 Calcium oxalate crystals LM Ql (Urine sed) 1+ /hpf [facility] Calculated very low density lipoprotein (VLDL) cholesterol measurementOrdered By: Millie Massey on 08-14-2024 Calculated very low density lipoprotein (VLDL) cholesterol measurement 9 mg/dL -40 [facility] Calculated very low density lipoprotein (VLDL) cholesterol measurement 9 mg/dL -40 [facility] Carbon dioxide, total [Moles /volume] in Central venous bloodOrdered By: Ciaran Rodrigez on 08-14-2024 Carbon dioxide, total [Moles/volume] in Central venous blood 19.2 mmol/L Low 21.0-32.0 [facility] Carbon dioxide, total [Moles /volume] in Central venous bloodOrdered By: Millie Massey on 08-14-2024 CO2 [Moles/Vol] 19.9 mmol/L Low 21.0-32.0 [facility] Carbon dioxide, total [Moles/volume] in Central venous blood 19.9 mmol/L Low 21.0-32.0 [facility] Chest 1 View (Portable)on Chest 1 View (Portable) Normal [facility] Chloride assayOrdered By: Dakota Rodrigez on 08-14-2024 Chloride assay 104 mmol/L 98-108 [facility] Chloride assayOrdered By: Carter Massey on 08-14-2024 Chloride [Moles/Vol] 105 mmol/L 98-108 [facility] Chloride assay 105 mmol/L 98-108 [facility] Cholesterol [Mass/Vol]Ordere d By: Millie Massey on 08-14-2024 Serum or plasma cholesterol measurement (mass/volume) 72 mg/dL <201 [facility] Cholesterol in HDL [Mass/Vol ]Ordered By: Millie Massey on 08-14-2024 Serum or plasma cholesterol in HDL measurement (mass/volume) 27 mg/dL Low >40 [facility] Clarity (U)Ordered By: Ciaran Rodrigez on 08-14-2024 Urine clarity Sl. Cloudy Clear [facility] Cobalamin (Vitamin B12) [Mas s/Vol]Ordered By: Millie Massey on 08-14-2024 Vitamin B12 ser/plas 599 pg/mL 180-914 [facility] Color (U)Ordered By: Ciaran Singh on 08-14-2024 Urine color determination Yellow Yellow [facility] Comprehensive Metabolic Prof ilon 08-14-2024 Albumin [Mass/Vol] 2.0 g/dL Low 3.4-4.8 [facility] Comment on above: Performed By: #### L 100.0100, L500.4050 ####[facility] [address] [place], [address] Albumin/Globulin [Mass ratio] 0.6 {ratio} Low 0.9-2.4 [facility] Comment on above: Performed By: #### L 100.0100, L500.4050 ####[facility] [address] [place], [address] ALK PHOS 71 U/L Normal 35-104 [facility] Comment on above: Performed By: #### L 100.0100, L500.4050 ####[facility] [address] [place], [address] ALT [Catalytic activity/Vol] 9 U/L Normal <=34 [facility] Comment on above: Performed By: #### L 100.0100, L500.4050 ####[facility] [address] [place], [address] AST [Catalytic activity/Vol] 29 U/L Normal <=31 [facility] Comment on above: Result Comment: Hemo lysis present, Results??could be affected.?? Performed By: #### L 100.0100, L500.4050 ####[facility] [address] [place], [address] Bilirubin [Mass/Vol] 0.18 mg/dL Normal 0.00-1.30 [facility] Comment on above: Performed By: #### L 100.0100, L500.4050 ####[facility] [address] [place], [address] BUN/CRE 29.1 RATIO High 10-20 [facility] Comment on above: Performed By: #### L 100.0100, L500.4050 ####[facility] [address] [place], [address] Calcium [Mass/Vol] 7.8 mg/dL Normal 7.6-11.0 [facility] Comment on above: Performed By: #### L 100.0100, L500.4050 ####[facility] [address] [place], [address] Chloride [Moles/Vol] 104 mmol/L Normal 98-108 [facility] Comment on above: Performed By: #### L 100.0100, L500.4050 ####[facility] [address] [place], [address] CO2 [Moles/Vol] 19.2 mmol/L Low 21.0-32.0 [facility] Comment on above: Performed By: #### L 100.0100, L500.4050 ####[facility] [address] [place], [address] Creatinine [Mass/Vol] 1.34 mg/dL High 0.70-1.20 [facility] Comment on above: Performed By: #### L 100.0100, L500.4050 ####[facility] [address] [place], [address] ECRCL 38.48 ml/min Low 50-250 [facility] Comment on above: Performed By: #### L 100.0100, L500.4050 ####[facility] [address] [place], [address] GAP 9 Normal 5-15 [facility] Comment on above: Performed By: #### L 100.0100, L500.4050 ####[facility] [address] [place], [address] GFR/1.73 sq M.predicted among non-blacks MDRD (S/P/Bld) [Vol rate/Area] 45 mL/min/{1.73_m2} Low >60 [facility] Comment on above: Result Comment: mL/m in/1.73m2 CKD-EPI Creatinine Equation (2020) Performed By: #### L 100.0100, L500.4050 ####[facility] [address] [place], [address] Globulin (S) [Mass/Vol] 3.4 g/dL Normal 2.2-4.2 [facility] Comment on above: Performed By: #### L 100.0100, L500.4050 ####[facility] [address] [place], [address] Glucose [Mass/Vol] 85 mg/dL Normal 70-99 [facility] Comment on above: Performed By: #### L 100.0100, L500.4050 ####[facility] [address] [place], [address] Potassium [Moles/Vol] 5.4 mmol/L High 3.3-5.1 [facility] Comment on above: Result Comment: Hemo lysis present, Results??could be affected.?? Performed By: #### L 100.0100, L500.4050 ####[facility] [address] [place], [address] Sodium [Moles/Vol] 131 mmol/L Low 133-145 [facility] Comment on above: Performed By: #### L 100.0100, L500.4050 ####[facility] [address] [place], [address] T PROT 5.5 g/dL Low 5.9-8.4 [facility] Comment on above: Performed By: #### L 100.0100, L500.4050 ####[facility] [address] [place], [address] Urea nitrogen [Mass/Vol] 39 mg/dL High 4-19 [facility] Comment on above: Performed By: #### L 100.0100, L500.4050 ####[facility] [address] [place], [address] Creatinine [Mass/Vol]Ordered By: Ciaran BrowneNico on 08-14-2024 Serum creatinine measurement (mass/volume) 1.34 mg/dL High 0.70-1.20 [facility] Creatinine [Mass/Vol]Ordered By: Millie Massey on 08-14-2024 Serum creatinine measurement (mass/volume) 1.34 mg/dL High 0.70-1.20 [facility] Determination of fraction of inspired oxygenOrdered By: Ciaran Rodrigez on 08-14-2024 Determination of fraction of inspired oxygen 44.0 [facility] Dialysis Vein Map PRE-OP LEXIE ATon 08-14-2024 Dialysis Vein Map PRE-OP BILAT Normal [facility] Differential Commenton 08-14 SMEAR COMMENT COMMENT Normal [facility] Comment on above: Order Comment: 206 Result Comment: 1+ A NISO. Performed By: #### L 500.4100, L100.4500, L506.1001, L500.2500, L501.9520, L100.0500, L501.5200, L503.0106 ####[facility] [address] [place], [address] Echo Completeon 08-14-2024 Echo Complete Normal [facility] Emergency Department Summary on 08-14-2024 Emergency Department Summary Normal [facility] Eosinophil percentageOrdered By: Ciaran Rodrigez on 08-14-2024 Eosinophil percentage 1.9 % 0-5 [facility] Erythrocyte distribution wid th (RBC) [Entitic vol]Ordered By: Ciaran Walsh on 08-14-2024 Erythrocyte distribution width standard deviation 70.0 fl High 35.1-43.9 [facility] Erythrocyte distribution wid th (RBC) [Ratio]Ordered By: Ciaran Rodrigez on 08-14-2024 Erythrocyte distribution width ratio 21.0 % High 11.6-14.6 [facility] Erythrocyte distribution wid th (RBC) [Ratio]Ordered By: Millie Massey on 08-14-2024 Erythrocyte distribution width ratio 21.0 % High 11.6-14.6 [facility] Erythrocyte distribution wid th ratioOrdered By: Millie Massey on 08-14-2024 Erythrocyte distribution width (RBC) [Ratio] 21.0 % High 11.6-14.6 [facility] Erythrocyte distribution wid th standard deviationOrdered By: Millie Massey on 08-14-2024 Erythrocyte distribution width (RBC) [Ratio] 69.6 fl High 35.1-43.9 [facility] Erythrocyte distribution width standard deviation 69.6 fl High 35.1-43.9 [facility] Estimation of creatinine austen aranceOrdered By: Ciaran Rodrigez on 08-14-2024 Estimation of creatinine clearance 38.48 ml/min Low 50-250 [facility] GFR/1.73 sq M.predicted víctor g non-blacks MDRD (S/P/Bld) [Vol rate/Area]Ordered By: Ciaran Rodrigez on 08-14-2024 Glomerular filtration rate (GFR) estimation/1.73 sq m using serum, plasma, or whole b 45 Low >60 [facility] GFR/1.73 sq M.predicted víctor g non-blacks MDRD (S/P/Bld) [Vol rate/Area]Ordered By: Millie Massey on 08-14-2024 Glomerular filtration rate (GFR) estimation/1.73 sq m using serum, plasma, or whole b 45 Low >60 [facility] Glomerular filtration rate ( GFR) estimation/1.73 sq m using serum, plasma, or whole bOrdered By: Millie Massey on 08-14-2024 GFR/1.73 sq M.predicted among non-blacks MDRD (S/P/Bld) [Vol rate/Area] 45 mL/min/{1.73_m2} Low >60 [facility] Glucoseon 08-14-2024 Glucose [Mass/Vol] 79 mg/dL Normal 70-99 [facility] Comment on above: Performed By: #### L 501.0100 ####[facility] [address] [place], [address] Glucose [Mass/Vol]Ordered By : Ciaran Rodrigez on 08-14-2024 Serum glucose measurement (mass/volume) 85 mg/dL 70- [facility] Glucose [Mass/Vol]Ordered By : Millie Massey on 08-14-2024 Serum glucose measurement (mass/volume) 84 mg/dL 70- [facility] H AND P Exam - Hospitaliston 08-14-2024 H&P Exam - Hospitalist Normal [facility] Hematocrit Auto (Bld) [Volum e fraction]Ordered By: Ciaran Rodrigez on 08-14-2024 Automated blood hematocrit (percentage) 29.0 % Low 37-47 [facility] Hematocrit Auto (Bld) [Volum e fraction]Ordered By: Millie Massey on 08-14-2024 Hematocrit (Bld) [Volume fraction] 30.9 % Low 37-47 [facility] Automated blood hematocrit (percentage) 30.9 % Low -47 [facility] Hemoglobin measurementOrdere d By: Ciaran Rodrigez on 08-14-2024 Hemoglobin measurement 8.7 g/dL Low 12.0-15.0 [facility] Hemoglobin measurementOrdere d By: Millie Massey on 08-14-2024 Hemoglobin (Bld) [Mass/Vol] 9.2 g/dL Low 12.0-15.0 [facility] Hemoglobin measurement 9.2 g/dL Low 12.0-15.0 [facility] Immature granulocytes/100 WB C Auto (Bld)Ordered By: Ciaran Rodrigez on 08-14-2024 Automated immature granulocyte percentage 3.300 % High 0.0-0.9 [facility] Influenza virus A and B and SARS-CoV-2 (COVID-19) and Respiratory syncytial virus RNAOrdered By: Ciaran Rodrigez on 08-14-2024 SARS-CoV-2 (COVID-19) RNA MOISES+probe Ql (Unsp spec) [facility] International normalized rat io (INR) calculationOrdered By: [facility] CenterSur[facility] on 08-14-2024 International normalized ratio (INR) calculation 1.1 [facility] Ketones Test strip Ql (U)Ord ered By: [facility] CenterkymNico on 08-14-2024 Ketones Ql (U) Negative Negative [facility] L499.0042on 08-14-2024 Trop T High Sen 221 ng/L Invalid Interpretation Code <=14 [facility] Comment on above: Result Comment: Crit ical Result(s) Called at 1058: TO HORR by:KCLAPPER??Results read back by same. Performed By: #### L 499.0042 ####[facility] [address] [place], [address] L501.4021on 08-14-2024 Trop T High Sen 224 ng/L Invalid Interpretation Code <=14 [facility] Comment on above: Result Comment: Crit ical Result(s) Called at 0906: TO CDANTEL by:KCLAPPER??Results read back by same. Performed By: #### M 200.1000, L503.6005, L501.4021 ####[facility] [address] [facility] [place], [address] L503.0106on 08-14-2024 Cobalamin (Vitamin B12) [Mass/Vol] 599 pg/mL Normal 180-914 [facility] Comment on above: Order Comment: 206 Performed By: #### L 500.4100, L100.4500, L506.1001, L500.2500, L501.9520, L100.0500, L501.5200, L503.0106 ####[facility] [address] [place], [address] L506.1001on 08-14-2024 Vitamin D 25-OH 26.7 ng/mL Low 30-100 [facility] Comment on above: Order Comment: 206 Result Comment: Kelly min D StatusDeficiency: <20 ng/mL (50nmol/L)Insufficiency: 20-30 ng/mL (50-75 nmol/L)Sufficiency: 30-100 ng/mL (75-250 nmol/L)Toxicity: >100 ng/mL (>250 nmol/L) Performed By: #### L 500.4100, L100.4500, L506.1001, L500.2500, L501.9520, L100.0500, L501.5200, L503.0106 ####[facility] [address] [place], [address] LDHon 08-14-2024 LDH 239 U/L Normal 84-246 [facility] Comment on above: Order Comment: 1 Result Comment: Hemo lysis present, Results??could be affected.?? Performed By: #### L 504.2610, L001.0705 ####[facility] [address] [place], [address] LDL calc ser/plasOrdered By: Millie Massey on 08-14-2024 Cholesterol in LDL [Mass/Vol] 36 mg/dL [facility] LDL calc ser/plas 36 mg/dL [facility] Lactate dehydrogenase (LDH) measurementOrdered By: Nikolas Magaña on 08-14-2024 Lactate dehydrogenase (LDH) measurement 239 U/L 84-246 [facility] Lactic Acidon 08-14-2024 Lactate [Moles/Vol] 3.1 mmol/L Invalid Interpretation Code 0.0-2.0 [facility] Comment on above: Order Comment: Y Result Comment: Crit ical Result(s) Called at 0906: TO CDANTEL by:KCLAPPER??Results read back by same. Performed By: #### M 200.1000, L503.6005, L501.4021 ####[facility] [address] [place], [address] Lactic acid measurementOrder ed By: Ciaran Rodrigez on 08-14-2024 Lactic acid measurement 3.1 mmol/L High 0.0-2.0 [facility] Leukocyte esterase Test stri p Ql (U)Ordered By: Ciaran Rodrigez on 08-14-2024 Urine leukocyte esterase detection by dipstick 500 /ul High Negative [facility] Lipid Profileon 08-14-2024 CHOL:HDL 2.71 Normal [facility] Comment on above: Order Comment: 206 Performed By: #### L 500.4100, L100.4500, L506.1001, L500.2500, L501.9520, L100.0500, L501.5200, L503.0106 ####[facility] [address] [place], [address] Cholesterol [Mass/Vol] 72 mg/dL Normal <=200 [facility] Comment on above: Order Comment: 206 Result Comment: Chol esterol level, Desirable <200 mg/dLBorderline high cholesterol 200-239 mg/dLHigh cholesterol >=240 mg/dLRecommendations of the NCEP Adult Treatment Panel for thefollowing risk-cutoff thresholds for the [place] Americantrinity health. Performed By: #### L 500.4100, L100.4500, L506.1001, L500.2500, L501.9520, L100.0500, L501.5200, L503.0106 ####[facility] [address] [place], [address] Cholesterol in HDL [Mass/Vol] 27 mg/dL Low [facility] Comment on above: Order Comment: 206 Result Comment: Lucila onal Cholesterol Education Program (NCEP) guidelines:<40 mg/dL: Low HDL-cholesterol (major risk factor for CHD)>= 60 mg/dL: High HDL-cholesterol (negative risk factor forCHD)HDL-cholesterol is affected by a number of factors, e.g.smoking, exercise, hormones, sex and age. Performed By: #### L 500.4100, L100.4500, L506.1001, L500.2500, L501.9520, L100.0500, L501.5200, L503.0106 ####[facility] [address] [place], [address] Cholesterol in LDL [Mass/Vol] 36 mg/dL Normal [facility] Comment on above: Order Comment: 206 Result Comment: Bord nfhsat=243-062 mg/dL Higher Fzhq=780 mg/dL or greater Performed By: #### L 500.4100, L100.4500, L506.1001, L500.2500, L501.9520, L100.0500, L501.5200, L503.0106 ####[facility] [address] [place], [address] Cholesterol in VLDL [Mass/Vol] 9 mg/dL Normal 5-40 [facility] Comment on above: Order Comment: 206 Performed By: #### L 500.4100, L100.4500, L506.1001, L500.2500, L501.9520, L100.0500, L501.5200, L503.0106 ####[facility] [address] [place], [address] Triglyceride [Mass/Vol] 46 mg/dL Normal [facility] Comment on above: Order Comment: 206 Result Comment: The drugs N-Acetylcysteine and Metamizole may falselydepress this assay.Normal range: <150 mg/dLBorderline High: 150-199 mg/dLHigh: 200-499 mg/dLVery High: >500 mg/dL Performed By: #### L 500.4100, L100.4500, L506.1001, L500.2500, L501.9520, L100.0500, L501.5200, L503.0106 ####[facility] [address] [place], [address] Lymphocytes Auto (Unsp spec) [#/Vol]Ordered By: Ciaran Rodrigez on 08-14-2024 Absolute lymphocyte count 0.77 X10^3/uL Low 0.83-4.51 [facility] Lymphocytes/100 WBC Auto (Un sp spec)Ordered By: Ciaran Rodrigez on 08-14-2024 Automated lymphocyte count as percentage of total leukocytes 8.6 % Low -41 [facility] M100.678on 08-14-2024 M100.678 Pending SARS-CoV-2 (COVID 19) Negative INFLUENZA A Negative INFLUENZA B Negative RSV PCR Negative Normal [facility] Comment on above: Performed By: #### M 100.678 ####[facility] [address] [place], [address] MCV (RBC) [Entitic vol]Order ed By: Ciaran Rodrigez on 08-14-2024 MCV (mean corpuscular volume) determination 93.9 fL 81-99 [facility] MCV (RBC) [Entitic vol]Order ed By: Millie Massey on 08-14-2024 MCV (mean corpuscular volume) determination 92.8 fL 81-99 [facility] MCV (mean corpuscular volume ) determinationOrdered By: Millie Massey on 08-14-2024 MCV (RBC) [Entitic vol] 92.8 fL 81-99 [facility] Magnesiumon 08-14-2024 Magnesium [Mass/Vol] 1.4 mg/dL Low 1.5-2.2 [facility] Comment on above: Performed By: #### L 501.2300, L501.5200 ####[facility] [address] [place], [address] Magnesium [Mass/Vol] 1.5 mg/dL Normal 1.5-2.2 [facility] Comment on above: Order Comment: 206 Performed By: #### L 500.4100, L100.4500, L506.1001, L500.2500, L501.9520, L100.0500, L501.5200, L503.0106 ####[facility] [address] [place], [address] Magnesium (Unsp spec) [Mass/ Vol]Ordered By: Nikolas Magaña on 08-14-2024 Magnesium measurement (mass/volume) 1.4 mg/dL Low 1.5-2.2 [facility] Magnesium (Unsp spec) [Mass/ Vol]Ordered By: Millie Massey on 08-14-2024 Magnesium measurement (mass/volume) 1.5 mg/dL 1.5-2.2 [facility] Magnesium measurement (mass/ volume)Ordered By: Nikolas Magaña on 08-14-2024 Magnesium (Unsp spec) [Mass/Vol] 1.4 mg/dL Low 1.5-2.2 [facility] Magnesium measurement (mass/ volume)Ordered By: Millie Massey on 08-14-2024 Magnesium (Unsp spec) [Mass/Vol] 1.5 mg/dL 1.5-2.2 [facility] Manual differential comment Horace (Bld) [Interp]Ordered By: Millie Massey on 08-14-2024 Blood manual differential comment interpretation (narrative result) COMMENT [facility] Mean corpuscular hemoglobin (MCH) determinationOrdered By: Ciaran Rodrigez on 08-14-2024 Mean corpuscular hemoglobin (MCH) determination 28.2 pg 27.0-32.0 [facility] Mean corpuscular hemoglobin (MCH) determinationOrdered By: Millie Massey on 08-14-2024 MCH (RBC) [Entitic mass] 27.6 pg 27.0-32.0 [facility] Mean corpuscular hemoglobin (MCH) determination 27.6 pg 27.0-32.0 [facility] Mean corpuscular hemoglobin concentration (MCHC) determinationOrdered By: Ciaran Rodrigez on 08-14-2024 Mean corpuscular hemoglobin concentration (MCHC) determination 30.0 g/dL Low 32-36 [facility] Mean corpuscular hemoglobin concentration (MCHC) determinationOrdered By: Millie Massey on 08-14-2024 Mean corpuscular hemoglobin concentration (MCHC) determination 29.8 g/dL Low 32-36 [facility] Mean platelet volume determi nationOrdered By: Ciaran Rodrigez on 08-14-2024 Mean platelet volume determination 10.2 fl 6.2-12.0 [facility] Mean platelet volume determi nationOrdered By: Millie Massey on 08-14-2024 Mean platelet volume determination 10.8 fl 6.2-12.0 [facility] Measurement, pHOrdered By: Vika Rodrigez on 08-14-2024 pH (Unsp spec) 7.36 [pH] 7.35-7.45 [facility] Microscopic analysis of urin e for red blood cells (RBC)Ordered By: Ciaran Rodrigez on 08-14-2024 Microscopic analysis of urine for red blood cells (RBC) 0-5 SEEN /hpf 5-10 [facility] Monocyte percentageOrdered B y: Ciaran Rodrigez on 08-14-2024 Monocyte percentage 6.1 % 0-10 [facility] Mucus LM Ql (Urine sed)Order ed By: Ciaran Rodrigez on 08-14-2024 Mucus Ql (Urine sed) 0 SEEN /hpf [facility] Neutrophil percentageOrdered By: Ciaran Rodrigez on 08-14-2024 Neutrophil percentage 79.5 % High 47-70 [facility] Nitrite Test strip Ql (U)Ord ered By: Ciaran Rodrigez on 08-14-2024 Nitrite Ql (U) Negative Negative [facility] No Panel InformationOrdered By: Ciaran Rodrigez on 08-14-2024 ART [facility] R Radial [facility] Not entered [facility] Cannula [facility] 224 ng/L High <14 [facility] 29 U/L <32 [facility] Nucleated red blood cell per centageOrdered By: Ciaran Rodrigez on 08-14-2024 Nucleated red blood cell percentage 0 % 0-5 [facility] Oxygen saturation measuremen tOrdered By: Ciaran Rodrigez on 08-14-2024 Oxygen saturation measurement 98 % 95-99 [facility] Partial Thromboplast Timeon 08-14-2024 aPTT Coag (Bld) [Time] 33.6 s Normal 24.1-36.2 [facility] Comment on above: Performed By: #### L 300.3900, L300.4310 ####[facility] [address] [place], [place], [id number] Partial pressure of carbon d ioxide measurementOrdered By: Ciaran Rodrigez on 08-14-2024 Partial pressure of carbon dioxide measurement 39.1 mmHg 35-45 [facility] Partial pressure of oxygen m easurementOrdered By: Ciaran Rodrigez on 08-14-2024 Partial pressure of oxygen measurement 105 mmHG High 75-100 [facility] Phosphoruson 08-14-2024 Phosphate [Mass/Vol] 3.0 mg/dL Normal 2.7-4.5 [facility] Comment on above: Performed By: #### L 501.2300, L501.5200 ####[facility] [address] [place], [place], [id number] Platelet countOrdered By: Dakota Rodrigez on 08-14-2024 Platelet count 147 K/mm3 Low 150-450 [facility] Platelet countOrdered By: Carter Massey on 08-14-2024 Platelets (Bld) [#/Vol] 137 10*3/uL Low 150-450 [facility] Platelet count 137 K/mm3 Low 150-450 [facility] Potassium (Unsp spec) [Mass/ Vol]Ordered By: Ciaran Rodrigez on 08-14-2024 Potassium measurement (mass/volume) 5.4 mmol/L High 3.3-5.1 [facility] Potassium (Unsp spec) [Mass/ Vol]Ordered By: Millie Massey on 08-14-2024 Potassium measurement (mass/volume) 5.3 mmol/L High 3.3-5.1 [facility] Potassium measurement (mass/ volume)Ordered By: Millie Massey on 08-14-2024 Potassium (Unsp spec) [Mass/Vol] 5.3 mmol/L High 3.3-5.1 [facility] Protein Test strip Ql (U)Ord ered By: Ciaran Rodrigez on 08-14-2024 Protein Ql (U) 30 mg/dl High Negative [facility] Urine protein assay by test strip, semi-quantitative 30 mg/dl High Negative [facility] Protein, Totalon 08-14-2024 T PROT 5.4 g/dL Low 5.9-8.4 [facility] Comment on above: Performed By: #### L 504.2610, L001.0705 ####[facility] [address] [place], [address] Prothrombin Time w/INRon INR Coag (PPP) [Relative time] 1.1 {INR} Normal [facility] Comment on above: Performed By: #### L 300.3900, L300.4310 ####[facility] [address] [place], [address] PT Coag (PPP) [Time] 14.6 s Normal 11.7-14.9 [facility] Comment on above: Performed By: #### L 300.3900, L300.4310 ####[facility] [address] [place], [address] Prothrombin timeOrdered By: Ciaran Rodrigez on 08-14-2024 PT Coag (PPP) [Time] 14.6 s 11.7-14.9 [facility] Prothrombin time 14.6 SECONDS 11.7-14.9 [facility] RBC Auto (Bld) [#/Vol]Ordere d By: Ciaran Rodrigez on 08-14-2024 Automated blood erythrocyte count 3.09 M/mm3 Low 4.2-5.4 [facility] RBC Auto (Bld) [#/Vol]Ordere d By: Millie Massey on 08-14-2024 RBC (Bld) [#/Vol] 3.33 10*6/uL Low 4.2-5.4 [facility] Automated blood erythrocyte count 3.33 M/mm3 Low 4.2-5.4 [facility] Screening total cholesterol/ high density lipoprotein (HDL) cholesterol ratioOrdered By: Millie Massey on 08-14-2024 Screening total cholesterol/high density lipoprotein (HDL) cholesterol ratio 2.71 [facility] Serum creatinine measurement (mass/volume)Ordered By: Millie Massey on 08-14-2024 Creatinine [Mass/Vol] 1.34 mg/dL High 0.70-1.20 [facility] Serum globulin measurementOr dered By: Ciaran Rodrigez on 08-14-2024 Globulin (S) [Mass/Vol] 3.4 g/dL 2.2-4.2 [facility] Serum globulin measurement 3.4 g/dL 2.2-4.2 [facility] Serum glucose measurement (m ass/volume)Ordered By: Millie Massey on 08-14-2024 Glucose [Mass/Vol] 84 mg/dL 70-99 [facility] Serum or plasma alanine camargo otransferase (ALT) measurementOrdered By: Ciaran Rodrigez on 08-14-2024 ALT [Catalytic activity/Vol] 9 U/L <35 [facility] Serum or plasma albumin megan urement (mass/volume)Ordered By: Ciaran Walsh on 08-14-2024 Albumin [Mass/Vol] 2.0 g/dL Low 3.4-4.8 [facility] Serum or plasma albumin/glob ulin mass ratioOrdered By: Ciaran Rodrigez on 08-14-2024 Albumin/Globulin [Mass ratio] 0.6 {ratio} Low 0.9-2.4 [facility] Serum or plasma alkaline susan sphatase measurementOrdered By: Ciaran Rodrigez on 08-14-2024 ALP [Catalytic activity/Vol] 71 U/L 35-104 [facility] Serum or plasma calcium megan urement (mass/volume)Ordered By: Millie Massey on 08-14-2024 Calcium [Mass/Vol] 7.8 mg/dL 7.6-11.0 [facility] Serum or plasma cholesterol in HDL measurement (mass/volume)Ordered By: Millie Massey on 08-14-2024 Cholesterol in HDL [Mass/Vol] 27 mg/dL Low >40 [facility] Serum or plasma cholesterol measurement (mass/volume)Ordered By: Millie Massey on 08-14-2024 Cholesterol [Mass/Vol] 72 mg/dL <201 [facility] Serum or plasma urea nitroge n measurement (mass/volume)Ordered By: Millie Massey on 08-14-2024 Urea nitrogen [Mass/Vol] 39 mg/dL High 4-19 [facility] Serum phosphorus measurement Ordered By: Nikolas Magaña on 08-14-2024 Serum phosphorus measurement 3.0 mg/dL 2.7-4.5 [facility] Sodium levelOrdered By: Ward Rodrigez on 08-14-2024 Sodium level 131 mmol/L Low 133-145 [facility] Sodium levelOrdered By: Silvana Massey on 08-14-2024 Sodium [Moles/Vol] 132 mmol/L Low 133-145 [facility] Sodium level 132 mmol/L Low 133-145 [facility] Specific gravity (U) [Rel de nsity]Ordered By: Ciaran Rodrigez on 08-14-2024 Urine specific gravity measurement 1.010 1.002-1.03 0 [facility] Squamous epithelial cells de tection in urine sediment by light microscopyOrdered By: Ciaran Rodrigez on 08-14-2024 Epithelial cells.squamous LM Ql (Urine sed) 0-5 SEEN /hpf 5-10 [facility] TSH DL <= 0.005 mIU/L QnOrde red By: Millie Massey on 08-14-2024 TSH Qn 9.430 uIU/mL High 0.300-4.20 0 [facility] Serum or plasma thyroid stimulating hormone (TSH) measurement by high sensitivity met 9.430 uIU/mL High 0.300-4.20 0 [facility] Thyroid Stim Hormone (TSH)on 08-14-2024 TSH 9.430 uIU/mL High 0.300-4.20 0 [facility] Comment on above: Order Comment: 206 Performed By: #### L 500.4100, L100.4500, L506.1001, L500.2500, L501.9520, L100.0500, L501.5200, L503.0106 ####[facility] [address] [place], [address] Total carbon dioxide measure mentOrdered By: Ciaran Rodrigez on 08-14-2024 CO2 [Moles/Vol] 23 mmol/L [facility] Total carbon dioxide measurement 23 mmol/L [facility] Total proteinOrdered By: Myke Magaña on 08-14-2024 Protein [Mass/Vol] 5.4 g/dL Low 5.9-8.4 [facility] Total protein 5.4 g/dL Low 5.9-8.4 [facility] Total proteinOrdered By: Adelfo Rodrigez on 08-14-2024 Total protein 5.5 g/dL Low 5.9-8.4 [facility] Triglycerides measurementOrd ered By: Millie Massey on 08-14-2024 Triglycerides measurement 46 mg/dL <199 [facility] Troponin T.cardiac High sens itivity method [Mass/Vol]Ordered By: Ciaran Walsh on 08-14-2024 Troponin T.cardiac [Mass/volume] in Serum or Plasma by High sensitivity method 221 ng/L High <14 [facility] Troponin T.cardiac [Mass/vol ume] in Serum or Plasma by High sensitivity methodOrdered By: Ciaran Rodrigez on 08-14-2024 Troponin T.cardiac High sensitivity method [Mass/Vol] 221 ng/L High <14 [facility] Urea nitrogen [Mass/Vol]Orde red By: Ciaran Rodrigez on 08-14-2024 Serum or plasma urea nitrogen measurement (mass/volume) 39 mg/dL High - [facility] Urea nitrogen [Mass/Vol]Orde red By: Millie Massey on 08-14-2024 Serum or plasma urea nitrogen measurement (mass/volume) 39 mg/dL High 09-14 [facility] Urinalysis, Completeon 08-14 CA OX CRYSTAL 1+ /hpf Normal [facility] Comment on above: Order Comment: ADWOA CTOR TO SPECIFY Performed By: #### L 400.0001 ####[facility] [address] [place], [address] EPI,SQUAMOUS 0-5 SEEN Normal 5-10 [facility] Comment on above: Order Comment: ADWOA CTOR TO SPECIFY Performed By: #### L 400.0001 ####[facility] [address] [place], [address] RBC 0-5 SEEN Normal 0-5 [facility] Comment on above: Order Comment: ADWOA CTOR TO SPECIFY Performed By: #### L 400.0001 ####[facility] [address] [place], [address] WBC 25-50 SEEN Normal 0-5 [facility] Comment on above: Order Comment: ADWOA CTOR TO SPECIFY Performed By: #### L 400.0001 ####[facility] [address] [place], [address] BACTERIA 0 SEEN Normal None Seen [facility] Comment on above: Order Comment: ADWOA CTOR TO SPECIFY Performed By: #### L 400.0001 ####[facility] [address] [place], [address] Mucus Ql (Urine sed) 0 SEEN Normal [facility] Comment on above: Order Comment: ADWOA CTOR TO SPECIFY Performed By: #### L 400.0001 ####[facility] [address] [place], [address] Urine blood detectionOrdered By: Ciaran Rodrigez on 08-14-2024 Urine blood detection 25 /ul High Negative [facility] Urine clarityOrdered By: Adelfo Rodrigez on 08-14-2024 Clarity (U) Sl. Cloudy Clear [facility] Urine color determinationOrd ered By: Ciraan Rodrigez on 08-14-2024 Color (U) Yellow Yellow [facility] Urine cultureOrdered By: Adelfo Rodrigez on 08-14-2024 Bacteria identified Cx Nom (U) Enterococcus faecium Abnormal [facility] Bacteria identified Cx Nom (U) Citrobacter freundii Abnormal [facility] Urine culture Enterococcus faecium Abnormal [facility] Urine culture Citrobacter freundii Abnormal [facility] Urine glucose detectionOrder ed By: Ciaran Rodrigez on 08-14-2024 Glucose Ql (U) Normal mg/dl Normal [facility] Urine glucose detection Normal mg/dl Normal [facility] Urine leukocyte esterase det ection by dipstickOrdered By: Ciaran Rodrigez on 08-14-2024 Leukocyte esterase Test strip Ql (U) 500 /ul High Negative [facility] Urine pHOrdered By: Ciaran Ruelas on 08-14-2024 pH (U) 8.0 [pH] 5.0 - 8.0 [facility] Urine sediment bacteria coun t by microscopy (number/high power field)Ordered By: Ciaran Rodrigez on 08-14-2024 Bacteria LM.HPF (Urine sed) [#/Area] 0 /[HPF] None Seen [facility] Urine sediment bacteria count by microscopy (number/high power field) 0 SEEN /hpf [facility] Urine specific gravity measu rementOrdered By: Ciaran Rodrigez on 08-14-2024 Specific gravity (U) [Rel density] 1.010 1.002-1.03 0 [facility] Urine total bilirubin detect ion by test stripOrdered By: Ciaran Rodrigez on 08-14-2024 Urine total bilirubin detection by test strip Negative Negative [facility] Urine urobilinogen measureme ntOrdered By: Ciaran Rodrigez on 08-14-2024 Urobilinogen Ql (U) Normal mg/dl Normal [facility] Vitamin B12 ser/plasOrdered By: Millie Massey on 08-14-2024 Cobalamin (Vitamin B12) [Mass/Vol] 599 pg/mL 180-914 [facility] Vitamin D, 25-hydroxyOrdered By: Millie Massey on 08-14-2024 Vitamin D, 25-hydroxy 26.7 ng/mL Low 30-100 [facility] White blood cell (WBC) count Ordered By: Ciaran Rodrigez on 08-14-2024 White blood cell (WBC) count 9.0 K/mm3 4.4-11.0 [facility] White blood cell (WBC) count Ordered By: Millie Massey on 08-14-2024 WBC (Bld) [#/Vol] 4.1 10*3/uL Low 4.4-11.0 [facility] White blood cell (WBC) count 4.1 K/mm3 Low 4.4-11.0 [facility] White blood cell countOrdere d By: Ciaran Rodrigez on 08-14-2024 White blood cell count 25-50 SEEN /hpf 0-5 [facility] White blood cell count 25-50 SEEN /hpf 0-5 [facility] aPTT Coag (PPP) [Time]Ordere d By: Ciaran Rodrigez on 08-14-2024 Activated partial thromboplastin time (aPTT) in platelet poor plasma by coagulation a 33.6 Seconds 24.1-36.2 [facility] pH (U)Ordered By: Ciaran Prieto on 08-14-2024 Urine pH 8.0 5.0 - 8.0 [facility] pH (Unsp spec)Ordered By: Dakota Rodrigez on 08-14-2024 Measurement, pH 7.36 7.35-7.45 [facility] Absolute lymphocyte countOrd ered By: Nikolas Magaña on 08-13-2024 Lymphocytes Auto (Unsp spec) [#/Vol] 0.60 10*3/uL Low 0.83-4.51 [facility] Absolute neutrophil countOrd ered By: Nikolas Magaña on 08-13-2024 Absolute neutrophil count 3.4 X10^3/uL 2.0-7.7 [facility] Anion gap [Moles/Vol]Ordered By: Nikolas Magaña on 08-13-2024 Anion gap in Serum or Plasma 7 5-15 [facility] Anion gap in Serum or Plasma Ordered By: Nikolas Magaña on 08-13-2024 Anion gap [Moles/Vol] 7 mmol/L - [facility] Automated lymphocyte count a s percentage of total leukocytesOrdered By: Nikolas Magaña on 08-13-2024 Lymphocytes/100 WBC Auto (Unsp spec) 12.9 % Low 19-41 [facility] BUN/creatinine ratioOrdered By: Nikolas Magaña on 08-13-2024 Urea nitrogen/Creatinine [Mass ratio] 22.7 mg/mg High 10-20 [facility] BUN/creatinine ratio 22.7 RATIO High 10-20 [facility] Basic Metabolic Profile (BMP )on 08-13-2024 BUN/CRE 22.7 RATIO High 10-20 [facility] Comment on above: Order Comment: PER P RHIANNON NURSEVALERIY TO DRAW @0815 WITH GLUCOSE Performed By: #### L 100.0100, L500.2500 ####[facility] [address] [place], [address] Calcium [Mass/Vol] 7.8 mg/dL Normal 7.6-11.0 [facility] Comment on above: Order Comment: PER P VALERIY BENITES TO DRAW @0815 WITH GLUCOSE Performed By: #### L 100.0100, L500.2500 ####[facility] [address] [place], [address] Chloride [Moles/Vol] 106 mmol/L Normal 98-108 [facility] Comment on above: Order Comment: PER P RHIANNON NURSEVALERIY TO DRAW @0815 WITH GLUCOSE Performed By: #### L 100.0100, L500.2500 ####[facility] [address] [place], [address] CO2 [Moles/Vol] 23.8 mmol/L Normal 21.0-32.0 [facility] Comment on above: Order Comment: PER P CU NURSEVALERIY TO DRAW @0815 WITH GLUCOSE Performed By: #### L 100.0100, L500.2500 ####[facility] [address] [place], [address] Creatinine [Mass/Vol] 1.21 mg/dL High 0.70-1.20 [facility] Comment on above: Order Comment: PER P CU NURSEVALERIY TO DRAW @0815 WITH GLUCOSE Performed By: #### L 100.0100, L500.2500 ####[facility] [address] [place], [address] ECRCL 30.44 ml/min Low 50-250 [facility] Comment on above: Order Comment: PER P CU NURSEVALERIY TO DRAW @0815 WITH GLUCOSE Performed By: #### L 100.0100, L500.2500 ####[facility] [address] [place], [address] GAP 7 Normal 5-15 [facility] Comment on above: Order Comment: PER P CU NURSEVALERIY TO DRAW @0815 WITH GLUCOSE Performed By: #### L 100.0100, L500.2500 ####[facility] [address] [place], [address] GFR/1.73 sq M.predicted among non-blacks MDRD (S/P/Bld) [Vol rate/Area] 51 mL/min/{1.73_m2} Low >60 [facility] Comment on above: Order Comment: PER P CU NURSEVALERIY TO DRAW @0815 WITH GLUCOSE Result Comment: mL/m in/1.73m2 CKD-EPI Creatinine Equation (2020) Performed By: #### L 100.0100, L500.2500 ####[facility] [address] [place], [address] Glucose [Mass/Vol] 85 mg/dL Normal 70-99 [facility] Comment on above: Order Comment: PER P CU NURSEVALERIY TO DRAW @0815 WITH GLUCOSE Performed By: #### L 100.0100, L500.2500 ####[facility] [address] [place], [address] Potassium [Moles/Vol] 4.3 mmol/L Normal 3.3-5.1 [facility] Comment on above: Order Comment: PER P CU NURSEVALERIY TO DRAW @0815 WITH GLUCOSE Performed By: #### L 100.0100, L500.2500 ####[facility] [address] [place], [address] Sodium [Moles/Vol] 137 mmol/L Normal 133-145 [facility] Comment on above: Order Comment: PER P CU NURSEVALERIY TO DRAW @0815 WITH GLUCOSE Performed By: #### L 100.0100, L500.2500 ####[facility] [address] [place], [address] Urea nitrogen [Mass/Vol] 28 mg/dL High 4-19 [facility] Comment on above: Order Comment: PER P CU NURSEVALERIY TO DRAW @0815 WITH GLUCOSE Performed By: #### L 100.0100, L500.2500 ####[facility] [address] [place], [address] Basophil percentageOrdered B y: Nikolas Magaña on 08-13-2024 Basophils/100 WBC (Bld) 1.1 % High 0-1 [facility] Basophil percentage 1.1 % High 0-1 [facility] Bedside Glucoseon 08-13-2024 FINGERSTICK GLU 134 mg/dL High 74-106 [facility] Comment on above: Result Comment: LUIZA DIAZ OF PATIENT CARE PER NURSING PROTOCOL Performed By: #### L 501.080 ####[facility] [address] [place], [address] FINGERSTICK GLU 86 mg/dL Normal 74-106 [facility] Comment on above: Result Comment: LUIZA GEMENT OF PATIENT CARE PER NURSING PROTOCOL Performed By: #### L 501.080 ####[facility] [address] [place], [address] FINGERSTICK GLU 31 mg/dL Invalid Interpretation Code 74-106 [facility] Comment on above: Result Comment: Dext tushar 50 GivenMANAGEMENT OF PATIENT CARE PER NURSING PROTOCOL Performed By: #### L 501.080 ####[facility] [address] [place], [address] FINGERSTICK GLU 54 mg/dL Low 74-106 [facility] Comment on above: Result Comment: LUIZA GEMENT OF PATIENT CARE PER NURSING PROTOCOL Performed By: #### L 501.080 ####[facility] [address] [place], [address] FINGERSTICK GLU 88 mg/dL Normal 74-106 [facility] Comment on above: Result Comment: LUIZA GEMENT OF PATIENT CARE PER NURSING PROTOCOL Performed By: #### L 501.080 ####[facility] [address] [place], [address] FINGERSTICK GLU 93 mg/dL Normal 74-106 [facility] Comment on above: Result Comment: LUIZA GEMENT OF PATIENT CARE PER NURSING PROTOCOL Performed By: #### L 501.080 ####[facility] [address] [place], [address] CBC W/Diff, Automatedon - Absolute Lymph 0.60 X10 3/uL Low 0.83-4.51 [facility] Comment on above: Order Comment: PER P CU NURSE, IMANAY TO DRAW @0815 WITH GLUCOSE Performed By: #### L 100.0100, L500.2500 ####[facility] [address] [place], [address] Absolute Neut 3.4 X10 3/uL Normal 2.0-7.7 [facility] Comment on above: Order Comment: PER P CU NURSE, OKAY TO DRAW @0815 WITH GLUCOSE Performed By: #### L 100.0100, L500.2500 ####[facility] [address] [place], [address] Basophils/100 WBC (Bld) 1.1 % High 0-1 [facility] Comment on above: Order Comment: PER P CU NURSE, OKAY TO DRAW @0815 WITH GLUCOSE Performed By: #### L 100.0100, L500.2500 ####[facility] [address] [place], [address] Eosinophils/100 WBC (Bld) 3.4 % Normal 0-5 [facility] Comment on above: Order Comment: PER P CU NURSE, OKAY TO DRAW @0815 WITH GLUCOSE Performed By: #### L 100.0100, L500.2500 ####[facility] [address] [place], [address] Erythrocyte distribution width (RBC) [Ratio] 20.0 % High 11.6-14.6 [facility] Comment on above: Order Comment: PER P CU NURSE, OKAY TO DRAW @0815 WITH GLUCOSE Performed By: #### L 100.0100, L500.2500 ####[facility] [address] [place], [address] Hematocrit (Bld) [Volume fraction] 26.7 % Low 37-47 [facility] Comment on above: Order Comment: PER P CU NURSE, OKAY TO DRAW @0815 WITH GLUCOSE Performed By: #### L 100.0100, L500.2500 ####[facility] [address] [place], [address] Hemoglobin (Bld) [Mass/Vol] 8.1 g/dL Low 12.0-15.0 [facility] Comment on above: Order Comment: PER P CU NURSE, OKAY TO DRAW @0815 WITH GLUCOSE Performed By: #### L 100.0100, L500.2500 ####[facility] [address] [place], [address] IG% 2.400 High 0.0-0.9 [facility] Comment on above: Order Comment: PER P CU NURSEVALERIY TO DRAW @0815 WITH GLUCOSE Result Comment: IG% - Immature Granulocytes (promyelocytes, myelocytes andmetamyelocytes) > 1% indicates that a LEFT SHIFT is Present. Performed By: #### L 100.0100, L500.2500 ####[facility] [address] [place], [address] Lymphocytes/100 WBC (Bld) 12.9 % Low 19-41 [facility] Comment on above: Order Comment: PER P CU NURSEVALERIY TO DRAW @0815 WITH GLUCOSE Performed By: #### L 100.0100, L500.2500 ####[facility] [address] [place], [address] MCH (RBC) [Entitic mass] 27.3 pg Normal 27.0-32.0 [facility] Comment on above: Order Comment: PER P CU NURSEVALERIY TO DRAW @0815 WITH GLUCOSE Performed By: #### L 100.0100, L500.2500 ####[facility] [address] [place], [address] MCHC (RBC) [Mass/Vol] 30.3 g/dL Low 32-36 [facility] Comment on above: Order Comment: PER P CU NURSEVALERIY TO DRAW @0815 WITH GLUCOSE Performed By: #### L 100.0100, L500.2500 ####[facility] [address] [place], [address] MCV (RBC) [Entitic vol] 89.9 fL Normal 81-99 [facility] Comment on above: Order Comment: PER P CU NURSEVALERIY TO DRAW @0815 WITH GLUCOSE Performed By: #### L 100.0100, L500.2500 ####[facility] [address] [place], [address] Monocytes/100 WBC (Bld) 8.2 % Normal 0-10 [facility] Comment on above: Order Comment: PER P CU NURSE, IMANAY TO DRAW @0815 WITH GLUCOSE Performed By: #### L 100.0100, L500.2500 ####[facility] [address] [place], [address] Neutrophils/100 WBC (Bld) 72.0 % High 47-70 [facility] Comment on above: Order Comment: PER P CU NURSE, OKAY TO DRAW @0815 WITH GLUCOSE Performed By: #### L 100.0100, L500.2500 ####[facility] [address] [place], [address] Nucleated RBC (Bld) [#/Vol] 0 10*3/uL Normal 0-5 [facility] Comment on above: Order Comment: PER P CU NURSE, IMANAY TO DRAW @0815 WITH GLUCOSE Performed By: #### L 100.0100, L500.2500 ####[facility] [address] [place], [address] Platelet mean volume (Bld) [Entitic vol] 10.2 fL Normal 6.2-12.0 [facility] Comment on above: Order Comment: PER P CU NURSE, IMANAY TO DRAW @0815 WITH GLUCOSE Performed By: #### L 100.0100, L500.2500 ####[facility] [address] [place], [address] Platelets (Bld) [#/Vol] 120 10*3/uL Low 150-450 [facility] Comment on above: Order Comment: PER P CU NURSE, OKAY TO DRAW @0815 WITH GLUCOSE Performed By: #### L 100.0100, L500.2500 ####[facility] [address] [place], [address] RBC (Bld) [#/Vol] 2.97 10*6/uL Low 4.2-5.4 [facility] Comment on above: Order Comment: PER P CU NURSE, VALERIY TO DRAW @0815 WITH GLUCOSE Performed By: #### L 100.0100, L500.2500 ####[facility] [address] [place], [address] RDW SD 62.6 fl High 35.1-43.9 [facility] Comment on above: Order Comment: PER P CU NURSE, IMANAY TO DRAW @0815 WITH GLUCOSE Performed By: #### L 100.0100, L500.2500 ####[facility] [address] [place], [address] WBC (Bld) [#/Vol] 4.7 10*3/uL Normal 4.4-11.0 [facility] Comment on above: Order Comment: PER P CU NURSE, VALERIY TO DRAW @0815 WITH GLUCOSE Performed By: #### L 100.0100, L500.2500 ####[facility] [address] [place], [address] Calcium [Mass/Vol]Ordered By : Nikolas Magaña on 08-13-2024 Serum or plasma calcium measurement (mass/volume) 7.8 mg/dL 7.6-11.0 [facility] Carbon dioxide, total [Moles /volume] in Central venous bloodOrdered By: Nikolas Magaña on 08-13-2024 CO2 [Moles/Vol] 23.8 mmol/L 21.0-32.0 [facility] Carbon dioxide, total [Moles/volume] in Central venous blood 23.8 mmol/L 21.0-32.0 [facility] Chloride assayOrdered By: Oscar Magaña on 08-13-2024 Chloride [Moles/Vol] 106 mmol/L 98-108 [facility] Chloride assay 106 mmol/L 98-108 [facility] Creatinine [Mass/Vol]Ordered By: Nikolas Magaña on 08-13-2024 Serum creatinine measurement (mass/volume) 1.21 mg/dL High 0.70-1.20 [facility] Eosinophil percentageOrdered By: Nikolas Magaña on 03-18-2025 Eosinophils/100 WBC (Bld) 3.4 % 0-5 [facility] Eosinophil percentage 3.4 % 0-5 [facility] Erythrocyte distribution wid th (RBC) [Ratio]Ordered By: Nikolas Magaña on 08-13-2024 Erythrocyte distribution width ratio 20.0 % High 11.6-14.6 [facility] Erythrocyte distribution wid th ratioOrdered By: Nikolas Magaañ on 08-13-2024 Erythrocyte distribution width (RBC) [Ratio] 20.0 % High 11.6-14.6 [facility] Erythrocyte distribution wid th standard deviationOrdered By: Nikolas Magaña on 08-13-2024 Erythrocyte distribution width (RBC) [Ratio] 62.6 fl High 35.1-43.9 [facility] Erythrocyte distribution width standard deviation 62.6 fl High 35.1-43.9 [facility] Estimation of creatinine austen aranceOrdered By: Nikolas Magaña on 08-13-2024 Estimation of creatinine clearance 30.44 ml/min Low 50-250 [facility] GFR/1.73 sq M.predicted víctor g non-blacks MDRD (S/P/Bld) [Vol rate/Area]Ordered By: Nikolas Magaña on 08-13-2024 Glomerular filtration rate (GFR) estimation/1.73 sq m using serum, plasma, or whole b 51 Low >60 [facility] Glomerular filtration rate ( GFR) estimation/1.73 sq m using serum, plasma, or whole bOrdered By: Nikolas Magaña on 08-13-2024 GFR/1.73 sq M.predicted among non-blacks MDRD (S/P/Bld) [Vol rate/Area] 51 mL/min/{1.73_m2} Low >60 [facility] Glucoseon 08-13-2024 Glucose [Mass/Vol] 121 mg/dL High 70-99 [facility] Comment on above: Performed By: #### L 501.0100 ####[facility] [address] [place], [address] Glucose [Mass/Vol] 105 mg/dL High 70-99 [facility] Comment on above: Performed By: #### L 501.0100 ####[facility] [address] [place], [place], [id number] Glucose [Mass/Vol] 103 mg/dL High 70-99 [facility] Comment on above: Performed By: #### L 501.0100 ####[facility] [address] [place], [place], [address] Glucose [Mass/Vol]Ordered By : Judd Galvin on 08-13-2024 Serum glucose measurement (mass/volume) 121 mg/dL High 70-99 [facility] Glucose measurement at bedsi deOrdered By: Nikolas Magaña on 08-13-2024 Glucose [Mass/Vol] 134 mg/dL High 74-106 [facility] Glucose measurement at bedside 134 mg/dL High 74-106 [facility] HbA1c (Bld) [Mass fraction]O rdered By: Nikolas Magaña on 08-13-2024 Hemoglobin A1c percentage 5.1 % Low >5.7 [facility] Hematocrit Auto (Bld) [Volum e fraction]Ordered By: Nikolas Magaña on 08-13-2024 Hematocrit (Bld) [Volume fraction] 26.7 % Low 37-47 [facility] Automated blood hematocrit (percentage) 26.7 % Low 37-47 [facility] Hemoglobin A1con 08-13-2024 HbA1c (Bld) [Mass fraction] 5.1 % Low <=5.6 [facility] Comment on above: Order Comment: PER Karen JURADO NURSE, VALERIY TO DRAW @0815 WITH GLUCOSE Performed By: #### L 501.9985 ####[facility] [address] [facility] [address] [place], [place], [address] Hemoglobin A1c percentageOrd ered By: Nikolas Magaña on 08-13-2024 HbA1c (Bld) [Mass fraction] 5.1 % Low >5.7 [facility] Hemoglobin measurementOrdere d By: Nikolas Magaña on 08-13-2024 Hemoglobin (Bld) [Mass/Vol] 8.1 g/dL Low 12.0-15.0 [facility] Hemoglobin measurement 8.1 g/dL Low 12.0-15.0 [facility] Immature granulocytes/100 WB C Auto (Bld)Ordered By: Nikolas Magaña on 08-13-2024 Immature granulocytes/100 WBC (Bld) 2.400 % High 0.0-0.9 [facility] Automated immature granulocyte percentage 2.400 % High 0.0-0.9 [facility] Lymphocytes Auto (Unsp spec) [#/Vol]Ordered By: Nikolas Magaña on 08-13-2024 Absolute lymphocyte count 0.60 X10^3/uL Low 0.83-4.51 [facility] Lymphocytes/100 WBC Auto (Un sp spec)Ordered By: Nikolas Magaña on 08-13-2024 Automated lymphocyte count as percentage of total leukocytes 12.9 % Low 19-41 [facility] MCV (RBC) [Entitic vol]Order ed By: Nikolas Magaña on 08-13-2024 MCV (mean corpuscular volume) determination 89.9 fL 81-99 [facility] MCV (mean corpuscular volume ) determinationOrdered By: Nikolas Magaña on 08-13-2024 MCV (RBC) [Entitic vol] 89.9 fL 81-99 [facility] Mean corpuscular hemoglobin (MCH) determinationOrdered By: Nikolas Magaña on 08-13-2024 MCH (RBC) [Entitic mass] 27.3 pg 27.0-32.0 [facility] Mean corpuscular hemoglobin (MCH) determination 27.3 pg 27.0-32.0 [facility] Mean corpuscular hemoglobin concentration (MCHC) determinationOrdered By: Nikolas Magaña on 08-13-2024 Mean corpuscular hemoglobin concentration (MCHC) determination 30.3 g/dL Low 32-36 [facility] Mean platelet volume determi nationOrdered By: Nikolas Magaña on 08-13-2024 Mean platelet volume determination 10.2 fl 6.2-12.0 [facility] Monocyte percentageOrdered B y: Nikolas Magaña on 08-13-2024 Monocytes/100 WBC (Bld) 8.2 % 0-10 [facility] Monocyte percentage 8.2 % 0-10 [facility] Neutrophil percentageOrdered By: Nikolas Magaña on 08-13-2024 Neutrophils/100 WBC (Bld) 72.0 % High 47-70 [facility] Neutrophil percentage 72.0 % High 47-70 [facility] Nucleated red blood cell per centageOrdered By: Nikolas Magaña on 08-13-2024 Nucleated red blood cell percentage 0 % 0-5 [facility] Platelet countOrdered By: Oscar Magaña on 08-13-2024 Platelets (Bld) [#/Vol] 120 10*3/uL Low 150-450 [facility] Platelet count 120 K/mm3 Low 150-450 [facility] Potassium (Unsp spec) [Mass/ Vol]Ordered By: Nikolas Magaña on 08-13-2024 Potassium measurement (mass/volume) 4.3 mmol/L 3.3-5.1 [facility] Potassium measurement (mass/ volume)Ordered By: Nikolas Magaña on 08-13-2024 Potassium (Unsp spec) [Mass/Vol] 4.3 mmol/L 3.3-5.1 [facility] RBC Auto (Bld) [#/Vol]Ordere d By: Nikolas Magaña on 08-13-2024 RBC (Bld) [#/Vol] 2.97 10*6/uL Low 4.2-5.4 [facility] Automated blood erythrocyte count 2.97 M/mm3 Low 4.2-5.4 [facility] Serum creatinine measurement (mass/volume)Ordered By: Nikolas Magaña on 08-13-2024 Creatinine [Mass/Vol] 1.21 mg/dL High 0.70-1.20 [facility] Serum glucose measurement (m ass/volume)Ordered By: Judd Galvin on 08-13-2024 Glucose [Mass/Vol] 121 mg/dL High 70-99 [facility] Serum or plasma calcium megan urement (mass/volume)Ordered By: Nikolas Magaña on 08-13-2024 Calcium [Mass/Vol] 7.8 mg/dL 7.6-11.0 [facility] Serum or plasma urea nitroge n measurement (mass/volume)Ordered By: Nikolas Magaña on 08-13-2024 Urea nitrogen [Mass/Vol] 28 mg/dL High 4-19 [facility] Sodium levelOrdered By: Hemanth Magaña on 08-13-2024 Sodium [Moles/Vol] 137 mmol/L 133-145 [facility] Sodium level 137 mmol/L 133-145 [facility] Urea nitrogen [Mass/Vol]Orde red By: Nikolas Magaña on 08-13-2024 Serum or plasma urea nitrogen measurement (mass/volume) 28 mg/dL High 4-19 [facility] White blood cell (WBC) count Ordered By: Nikolas Magaña on 08-13-2024 WBC (Bld) [#/Vol] 4.7 10*3/uL 4.4-11.0 [facility] White blood cell (WBC) count 4.7 K/mm3 4.4-11.0 [facility] ABORh Blood Type, Patienton 08-12-2024 ABO and Rh group Nom (Bld) Blood group O Rh(D) positive Normal [facility] Comment on above: Order Comment: CMV N EG? NNumber of units to transfuse: 1Reason for Ordering Blood: AcuteAre the blood/blood products to be transfused? YIs the patient having/had surgery? NNWhen ReadyNYA Performed By: #### B RC, [id number], BTS, BtABORH, [id number] ####[facility] [address] [place], [place], [id number] 08-12-2024 ANTIBODY ID Normal [facility] Comment on above: Result Comment: CFYA Performed By: #### B RC, [id number], BTS, BtABORH, [id number] ####[facility] [address] [place], [place], [address] BRCon 08-12-2024 RC Normal [facility] Comment on above: Result Comment: [id number] ON RC TRANSFUSED 08/12/24 1538 Performed By: #### B RC, [id number], BTS, BtABORH, [id number] ####[facility] [address] [place], [place], [id number] Basic Metabolic Profile (BMP )on 08-12-2024 BUN/CRE 18.0 RATIO Normal - [facility] Comment on above: Performed By: #### L 500.2500, L100.0100 ####[facility] [address] [place], [address] Calcium [Mass/Vol] 7.6 mg/dL Normal 7.6-11.0 [facility] Comment on above: Performed By: #### L 500.2500, L100.0100 ####[facility] [address] [place], [address] Chloride [Moles/Vol] 106 mmol/L Normal 98-108 [facility] Comment on above: Performed By: #### L 500.2500, L100.0100 ####[facility] [address] [place], [address] CO2 [Moles/Vol] 22.3 mmol/L Normal 21.0-32.0 [facility] Comment on above: Performed By: #### L 500.2500, L100.0100 ####[facility] [address] [place], [address] Creatinine [Mass/Vol] 1.47 mg/dL High 0.70-1.20 [facility] Comment on above: Performed By: #### L 500.2500, L100.0100 ####[facility] [address] [place], [address] ECRCL 26.31 ml/min Low 50-250 [facility] Comment on above: Performed By: #### L 500.2500, L100.0100 ####[facility] [address] [place], [address] GAP 8 Normal 5-15 [facility] Comment on above: Performed By: #### L 500.2500, L100.0100 ####[facility] [address] [place], [address] GFR/1.73 sq M.predicted among non-blacks MDRD (S/P/Bld) [Vol rate/Area] 40 mL/min/{1.73_m2} Low >60 [facility] Comment on above: Result Comment: mL/m in/1.73m2 CKD-EPI Creatinine Equation (2020) Performed By: #### L 500.2500, L100.0100 ####[facility] [address] [place], [address] Glucose [Mass/Vol] 104 mg/dL High 70-99 [facility] Comment on above: Performed By: #### L 500.2500, L100.0100 ####[facility] [address] [place], [address] Potassium [Moles/Vol] 4.0 mmol/L Normal 3.3-5.1 [facility] Comment on above: Performed By: #### L 500.2500, L100.0100 ####[facility] [address] [place], [address] Sodium [Moles/Vol] 136 mmol/L Normal 133-145 [facility] Comment on above: Performed By: #### L 500.2500, L100.0100 ####[facility] [address] [place], [address] Urea nitrogen [Mass/Vol] 27 mg/dL High 4-19 [facility] Comment on above: Performed By: #### L 500.2500, L100.0100 ####[facility] [address] [place], [address] Bedside Glucoseon 08-12-2024 FINGERSTICK GLU 61 mg/dL Low 74-106 [facility] Comment on above: Result Comment: LUIZA DIAZ OF PATIENT CARE PER NURSING PROTOCOL Performed By: #### L 501.080 ####[facility] [address] [place], [address] CBC W/Diff, Automatedon 07-27 Absolute Lymph 0.51 X10 3/uL Low 0.83-4.51 [facility] Comment on above: Performed By: #### L 500.2500, L100.0100 ####[facility] [address] [place], [address] Absolute Neut 4.0 X10 3/uL Normal 2.0-7.7 [facility] Comment on above: Performed By: #### L 500.2500, L100.0100 ####[facility] [address] [place], [address] Basophils/100 WBC (Bld) 0.4 % Normal 0-1 [facility] Comment on above: Performed By: #### L 500.2500, L100.0100 ####[facility] [address] [place], [address] Eosinophils/100 WBC (Bld) 3.4 % Normal 0-5 [facility] Comment on above: Performed By: #### L 500.2500, L100.0100 ####[facility] [address] [place], [address] Erythrocyte distribution width (RBC) [Ratio] 19.9 % High 11.6-14.6 [facility] Comment on above: Performed By: #### L 500.2500, L100.0100 ####[facility] [address] [place], [address] Hematocrit (Bld) [Volume fraction] 21.7 % Low 37-47 [facility] Comment on above: Performed By: #### L 500.2500, L100.0100 ####[facility] [address] [place], [address] Hemoglobin (Bld) [Mass/Vol] 6.6 g/dL Low 12.0-15.0 [facility] Comment on above: Performed By: #### L 500.2500, L100.0100 ####[facility] [address] [place], [address] IG% 1.600 High 0.0-0.9 [facility] Comment on above: Result Comment: IG% - Immature Granulocytes (promyelocytes, myelocytes andmetamyelocytes) > 1% indicates that a LEFT SHIFT is Present. Performed By: #### L 500.2500, L100.0100 ####[facility] [address] [place], [address] Lymphocytes/100 WBC (Bld) 10.1 % Low 19-41 [facility] Comment on above: Performed By: #### L 500.2500, L100.0100 ####[facility] [address] [place], [address] MCH (RBC) [Entitic mass] 27.2 pg Normal 27.0-32.0 [facility] Comment on above: Performed By: #### L 500.2500, L100.0100 ####[facility] [address] [place], [address] MCHC (RBC) [Mass/Vol] 30.4 g/dL Low 32-36 [facility] Comment on above: Performed By: #### L 500.2500, L100.0100 ####[facility] [address] [place], [address] MCV (RBC) [Entitic vol] 89.3 fL Normal 81-99 [facility] Comment on above: Performed By: #### L 500.2500, L100.0100 ####[facility] [address] [place], [address] Monocytes/100 WBC (Bld) 6.3 % Normal 0-10 [facility] Comment on above: Performed By: #### L 500.2500, L100.0100 ####[facility] [address] [place], [address] Neutrophils/100 WBC (Bld) 78.2 % High 47-70 [facility] Comment on above: Performed By: #### L 500.2500, L100.0100 ####[facility] [address] [place], [address] Nucleated RBC (Bld) [#/Vol] 0 10*3/uL Normal 0-5 [facility] Comment on above: Performed By: #### L 500.2500, L100.0100 ####[facility] [address] [place], [address] Platelet mean volume (Bld) [Entitic vol] 10.1 fL Normal 6.2-12.0 [facility] Comment on above: Performed By: #### L 500.2500, L100.0100 ####[facility] [address] [place], [address] Platelets (Bld) [#/Vol] 107 10*3/uL Low 150-450 [facility] Comment on above: Performed By: #### L 500.2500, L100.0100 ####[facility] [address] [place], [address] RBC (Bld) [#/Vol] 2.43 10*6/uL Low 4.2-5.4 [facility] Comment on above: Performed By: #### L 500.2500, L100.0100 ####[facility] [address] [place], [address] RDW SD 63.5 fl High 35.1-43.9 [facility] Comment on above: Performed By: #### L 500.2500, L100.0100 ####[facility] [address] [place], [address] WBC (Bld) [#/Vol] 5.1 10*3/uL Normal 4.4-11.0 [facility] Comment on above: Performed By: #### L 500.2500, L100.0100 ####[facility] [address] [place], [address] Glucoseon 08-12-2024 Glucose [Mass/Vol] 102 mg/dL High 70-99 [facility] Comment on above: Performed By: #### L 501.0100 ####[facility] [address] [place], [address] Glucose [Mass/Vol] 113 mg/dL High 70-99 [facility] Comment on above: Performed By: #### L 501.0100 ####[facility] [address] [place], [address] Glucose [Mass/Vol] 85 mg/dL Normal 70-99 [facility] Comment on above: Performed By: #### L 501.0100 ####[facility] [address] [place], [address] Glucose [Mass/Vol] 109 mg/dL High 70-99 [facility] Comment on above: Performed By: #### L 501.0100 ####[facility] [address] [place], [address] Type AND Screenon 08-12-2024 Ab SCREEN GEL Positive Abnormal [facility] Comment on above: Order Comment: CMV N EG? NNumber of units to transfuse: 1Reason for Ordering Blood: AcuteAre the blood/blood products to be transfused? YIs the patient having/had surgery? NNWhen ReadyNYA Result Comment: AMENDED REPORT 08/12/24 1425: Antibody Screen previously reported as:Test not performed AMENDED REPORT 08/12/24 1425: Antibody Screen previously reported as:Test not performed Performed By: #### B RC, [id number], BTS, BtABORH, [id number] ####[facility] [address] [place], [address] Basic Metabolic Profile (BMP )on 03-16-2025 BUN/CRE 18.6 RATIO Normal 10-20 [facility] Comment on above: Performed By: #### L 100.0100, L500.2500 ####[facility] [address] [place], [address] Calcium [Mass/Vol] 7.4 mg/dL Low 7.6-11.0 [facility] Comment on above: Performed By: #### L 100.0100, L500.2500 ####[facility] [address] [place], [address] Chloride [Moles/Vol] 106 mmol/L Normal 98-108 [facility] Comment on above: Performed By: #### L 100.0100, L500.2500 ####[facility] [address] [place], [address] CO2 [Moles/Vol] 21.3 mmol/L Normal 21.0-32.0 [facility] Comment on above: Performed By: #### L 100.0100, L500.2500 ####[facility] [address] [place], [address] Creatinine [Mass/Vol] 1.39 mg/dL High 0.70-1.20 [facility] Comment on above: Performed By: #### L 100.0100, L500.2500 ####[facility] [address] [place], [address] ECRCL 27.82 ml/min Low 50-250 [facility] Comment on above: Performed By: #### L 100.0100, L500.2500 ####[facility] [address] [place], [address] GAP 9 Normal 5-15 [facility] Comment on above: Performed By: #### L 100.0100, L500.2500 ####[facility] [address] [place], [address] GFR/1.73 sq M.predicted among non-blacks MDRD (S/P/Bld) [Vol rate/Area] 43 mL/min/{1.73_m2} Low >60 [facility] Comment on above: Result Comment: mL/m in/1.73m2 CKD-EPI Creatinine Equation (2020) Performed By: #### L 100.0100, L500.2500 ####[facility] [address] [place], [address] Glucose [Mass/Vol] 114 mg/dL High 70-99 [facility] Comment on above: Performed By: #### L 100.0100, L500.2500 ####[facility] [address] [place], [address] Potassium [Moles/Vol] 3.7 mmol/L Normal 3.3-5.1 [facility] Comment on above: Performed By: #### L 100.0100, L500.2500 ####[facility] [address] [place], [address] Sodium [Moles/Vol] 136 mmol/L Normal 133-145 [facility] Comment on above: Performed By: #### L 100.0100, L500.2500 ####[facility] [address] [place], [address] Urea nitrogen [Mass/Vol] 26 mg/dL High 4-19 [facility] Comment on above: Performed By: #### L 100.0100, L500.2500 ####[facility] [address] [place], [address] CBC W/Diff, Automatedon 07-27 Absolute Lymph 0.53 X10 3/uL Low 0.83-4.51 [facility] Comment on above: Performed By: #### L 100.0100, L500.2500 ####[facility] [address] [place], [address] Absolute Neut 5.3 X10 3/uL Normal 2.0-7.7 [facility] Comment on above: Performed By: #### L 100.0100, L500.2500 ####[facility] [address] [place], [address] Basophils/100 WBC (Bld) 0.6 % Normal 0-1 [facility] Comment on above: Performed By: #### L 100.0100, L500.2500 ####[facility] [address] [place], [address] Eosinophils/100 WBC (Bld) 2.8 % Normal 0-5 [facility] Comment on above: Performed By: #### L 100.0100, L500.2500 ####[facility] [address] [place], [address] Erythrocyte distribution width (RBC) [Ratio] 19.5 % High 11.6-14.6 [facility] Comment on above: Performed By: #### L 100.0100, L500.2500 ####[facility] [address] [place], [address] Hematocrit (Bld) [Volume fraction] 24.7 % Low 37-47 [facility] Comment on above: Performed By: #### L 100.0100, L500.2500 ####[facility] [address] [place], [address] Hemoglobin (Bld) [Mass/Vol] 7.4 g/dL Low 12.0-15.0 [facility] Comment on above: Performed By: #### L 100.0100, L500.2500 ####[facility] [address] [place], [address] IG% 1.400 High 0.0-0.9 [facility] Comment on above: Result Comment: IG% - Immature Granulocytes (promyelocytes, myelocytes andmetamyelocytes) > 1% indicates that a LEFT SHIFT is Present. Performed By: #### L 100.0100, L500.2500 ####[facility] [address] [place], [address] Lymphocytes/100 WBC (Bld) 8.3 % Low 19-41 [facility] Comment on above: Performed By: #### L 100.0100, L500.2500 ####[facility] [address] [place], [address] MCH (RBC) [Entitic mass] 26.9 pg Low 27.0-32.0 [facility] Comment on above: Performed By: #### L 100.0100, L500.2500 ####[facility] [address] [place], [address] MCHC (RBC) [Mass/Vol] 30.0 g/dL Low 32-36 [facility] Comment on above: Performed By: #### L 100.0100, L500.2500 ####[facility] [address] [place], [address] MCV (RBC) [Entitic vol] 89.8 fL Normal 81-99 [facility] Comment on above: Performed By: #### L 100.0100, L500.2500 ####[facility] [address] [place], [address] Monocytes/100 WBC (Bld) 4.8 % Normal 0-10 [facility] Comment on above: Performed By: #### L 100.0100, L500.2500 ####[facility] [address] [place], [address] Neutrophils/100 WBC (Bld) 82.1 % High 47-70 [facility] Comment on above: Performed By: #### L 100.0100, L500.2500 ####[facility] [address] [place], [address] Nucleated RBC (Bld) [#/Vol] 0 10*3/uL Normal 0-5 [facility] Comment on above: Performed By: #### L 100.0100, L500.2500 ####[facility] [address] [place], [address] Platelet mean volume (Bld) [Entitic vol] 10.0 fL Normal 6.2-12.0 [facility] Comment on above: Performed By: #### L 100.0100, L500.2500 ####[facility] [address] [place], [address] Platelets (Bld) [#/Vol] 113 10*3/uL Low 150-450 [facility] Comment on above: Performed By: #### L 100.0100, L500.2500 ####[facility] [address] [place], [address] RBC (Bld) [#/Vol] 2.75 10*6/uL Low 4.2-5.4 [facility] Comment on above: Performed By: #### L 100.0100, L500.2500 ####[facility] [address] [place], [address] RDW SD 62.7 fl High 35.1-43.9 [facility] Comment on above: Performed By: #### L 100.0100, L500.2500 ####[facility] [address] [place], [address] WBC (Bld) [#/Vol] 6.4 10*3/uL Normal 4.4-11.0 [facility] Comment on above: Performed By: #### L 100.0100, L500.2500 ####[facility] [address] [place], [address] Glucoseon 08-11-2024 Glucose [Mass/Vol] 99 mg/dL Normal 70-99 [facility] Comment on above: Performed By: #### L 501.0100 ####[facility] [address] [place], [address] Glucose [Mass/Vol] 99 mg/dL Normal 70-99 [facility] Comment on above: Performed By: #### L 501.0100 ####[facility] [address] [place], [address] Glucose [Mass/Vol] 123 mg/dL High 70-99 [facility] Comment on above: Performed By: #### L 501.0100 ####[facility] [address] [place], [address] Glucose [Mass/Vol] 127 mg/dL High 70-99 [facility] Comment on above: Performed By: #### L 501.0100 ####[facility] [address] [place], [address] Basic Metabolic Profile (BMP )on 08-10-2024 BUN/CRE 18.0 RATIO Normal 10-20 [facility] Comment on above: Performed By: #### L 100.0100, L500.2500 ####[facility] [address] [place], [address] Calcium [Mass/Vol] 7.6 mg/dL Normal 7.6-11.0 [facility] Comment on above: Performed By: #### L 100.0100, L500.2500 ####[facility] [address] [place], [address] Chloride [Moles/Vol] 105 mmol/L Normal 98-108 [facility] Comment on above: Performed By: #### L 100.0100, L500.2500 ####[facility] [address] [place], [address] CO2 [Moles/Vol] 23.2 mmol/L Normal 21.0-32.0 [facility] Comment on above: Performed By: #### L 100.0100, L500.2500 ####[facility] [address] [place], [address] Creatinine [Mass/Vol] 1.17 mg/dL Normal 0.70-1.20 [facility] Comment on above: Performed By: #### L 100.0100, L500.2500 ####[facility] [address] [place], [address] ECRCL 33.06 ml/min Low 50-250 [facility] Comment on above: Performed By: #### L 100.0100, L500.2500 ####[facility] [address] [place], [address] GAP 8 Normal 5-15 [facility] Comment on above: Performed By: #### L 100.0100, L500.2500 ####[facility] [address] [place], [address] GFR/1.73 sq M.predicted among non-blacks MDRD (S/P/Bld) [Vol rate/Area] 53 mL/min/{1.73_m2} Low >60 [facility] Comment on above: Result Comment: mL/m in/1.73m2 CKD-EPI Creatinine Equation (2020) Performed By: #### L 100.0100, L500.2500 ####[facility] [address] [place], [address] Glucose [Mass/Vol] 106 mg/dL High 70-99 [facility] Comment on above: Performed By: #### L 100.0100, L500.2500 ####[facility] [address] [place], [address] Potassium [Moles/Vol] 3.7 mmol/L Normal 3.3-5.1 [facility] Comment on above: Performed By: #### L 100.0100, L500.2500 ####[facility] [address] [place], [address] Sodium [Moles/Vol] 136 mmol/L Normal 133-145 [facility] Comment on above: Performed By: #### L 100.0100, L500.2500 ####[facility] [address] [place], [address] Urea nitrogen [Mass/Vol] 21 mg/dL High 4-19 [facility] Comment on above: Performed By: #### L 100.0100, L500.2500 ####[facility] [address] [place], [address] Bedside Glucoseon 08-10-2024 FINGERSTICK GLU 45 mg/dL Low 74-106 [facility] Comment on above: Result Comment: LUIZA DIAZ OF PATIENT CARE PER NURSING PROTOCOL Performed By: #### L 501.080 ####[facility] [address] [place], [address] CBC W/Diff, Automatedon 07-27 Absolute Lymph 0.58 X10 3/uL Low 0.83-4.51 [facility] Comment on above: Performed By: #### L 100.0100, L500.2500 ####[facility] [address] [place], [address] Absolute Neut 5.6 X10 3/uL Normal 2.0-7.7 [facility] Comment on above: Performed By: #### L 100.0100, L500.2500 ####[facility] [address] [place], [address] Basophils/100 WBC (Bld) 1.1 % High 0-1 [facility] Comment on above: Performed By: #### L 100.0100, L500.2500 ####[facility] [address] [place], [address] Eosinophils/100 WBC (Bld) 3.0 % Normal 0-5 [facility] Comment on above: Performed By: #### L 100.0100, L500.2500 ####[facility] [address] [place], [address] Erythrocyte distribution width (RBC) [Ratio] 19.4 % High 11.6-14.6 [facility] Comment on above: Performed By: #### L 100.0100, L500.2500 ####[facility] [address] [place], [address] Hematocrit (Bld) [Volume fraction] 29.4 % Low 37-47 [facility] Comment on above: Performed By: #### L 100.0100, L500.2500 ####[facility] [address] [place], [address] Hemoglobin (Bld) [Mass/Vol] 8.8 g/dL Low 12.0-15.0 [facility] Comment on above: Performed By: #### L 100.0100, L500.2500 ####[facility] [address] [place], [address] IG% 1.400 High 0.0-0.9 [facility] Comment on above: Result Comment: IG% - Immature Granulocytes (promyelocytes, myelocytes andmetamyelocytes) > 1% indicates that a LEFT SHIFT is Present. Performed By: #### L 100.0100, L500.2500 ####[facility] [address] [place], [address] Lymphocytes/100 WBC (Bld) 8.3 % Low 19-41 [facility] Comment on above: Performed By: #### L 100.0100, L500.2500 ####[facility] [address] [place], [address] MCH (RBC) [Entitic mass] 26.8 pg Low 27.0-32.0 [facility] Comment on above: Performed By: #### L 100.0100, L500.2500 ####[facility] [address] [place], [address] MCHC (RBC) [Mass/Vol] 29.9 g/dL Low 32-36 [facility] Comment on above: Performed By: #### L 100.0100, L500.2500 ####[facility] [address] [place], [address] MCV (RBC) [Entitic vol] 89.6 fL Normal 81-99 [facility] Comment on above: Performed By: #### L 100.0100, L500.2500 ####[facility] [address] [place], [address] Monocytes/100 WBC (Bld) 5.2 % Normal 0-10 [facility] Comment on above: Performed By: #### L 100.0100, L500.2500 ####[facility] [address] [place], [address] Neutrophils/100 WBC (Bld) 81.0 % High 47-70 [facility] Comment on above: Performed By: #### L 100.0100, L500.2500 ####[facility] [address] [place], [address] Nucleated RBC (Bld) [#/Vol] 0 10*3/uL Normal 0-5 [facility] Comment on above: Performed By: #### L 100.0100, L500.2500 ####[facility] [address] [place], [address] Platelet mean volume (Bld) [Entitic vol] 10.0 fL Normal 6.2-12.0 [facility] Comment on above: Performed By: #### L 100.0100, L500.2500 ####[facility] [address] [place], [address] Platelets (Bld) [#/Vol] 125 10*3/uL Low 150-450 [facility] Comment on above: Performed By: #### L 100.0100, L500.2500 ####[facility] [address] [place], [address] RBC (Bld) [#/Vol] 3.28 10*6/uL Low 4.2-5.4 [facility] Comment on above: Performed By: #### L 100.0100, L500.2500 ####[facility] [address] [place], [address] RDW SD 63.1 fl High 35.1-43.9 [facility] Comment on above: Performed By: #### L 100.0100, L500.2500 ####[facility] [address] [place], [address] WBC (Bld) [#/Vol] 7.0 10*3/uL Normal 4.4-11.0 [facility] Comment on above: Performed By: #### L 100.0100, L500.2500 ####[facility] [address] [place], [address] Glucoseon 08-10-2024 Glucose [Mass/Vol] 139 mg/dL High 70-99 [facility] Comment on above: Performed By: #### L 501.0100 ####[facility] [address] [place], [address] Glucose [Mass/Vol] 135 mg/dL High 70-99 [facility] Comment on above: Performed By: #### L 501.0100 ####[facility] [address] [place], [address] Basic Metabolic Profile (BMP )on 08-09-2024 BUN/CRE 20.7 RATIO High 10-20 [facility] Comment on above: Performed By: #### L 100.0100, L500.2500 ####[facility] [address] [place], [address] Calcium [Mass/Vol] 7.4 mg/dL Low 7.6-11.0 [facility] Comment on above: Performed By: #### L 100.0100, L500.2500 ####[facility] [address] [place], [address] Chloride [Moles/Vol] 105 mmol/L Normal 98-108 [facility] Comment on above: Performed By: #### L 100.0100, L500.2500 ####[facility] [address] [place], [address] CO2 [Moles/Vol] 20.7 mmol/L Low 21.0-32.0 [facility] Comment on above: Performed By: #### L 100.0100, L500.2500 ####[facility] [address] [place], [address] Creatinine [Mass/Vol] 1.43 mg/dL High 0.70-1.20 [facility] Comment on above: Performed By: #### L 100.0100, L500.2500 ####[facility] [address] [place], [address] ECRCL 27.63 ml/min Low 50-250 [facility] Comment on above: Performed By: #### L 100.0100, L500.2500 ####[facility] [address] [place], [address] GAP 9 Normal 5-15 [facility] Comment on above: Performed By: #### L 100.0100, L500.2500 ####[facility] [address] [place], [address] GFR/1.73 sq M.predicted among non-blacks MDRD (S/P/Bld) [Vol rate/Area] 41 mL/min/{1.73_m2} Low >60 [facility] Comment on above: Result Comment: mL/m in/1.73m2 CKD-EPI Creatinine Equation (2020) Performed By: #### L 100.0100, L500.2500 ####[facility] [address] [place], [address] Glucose [Mass/Vol] 83 mg/dL Normal 70-99 [facility] Comment on above: Performed By: #### L 100.0100, L500.2500 ####[facility] [address] [place], [address] Potassium [Moles/Vol] 3.9 mmol/L Normal 3.3-5.1 [facility] Comment on above: Performed By: #### L 100.0100, L500.2500 ####[facility] [address] [place], [address] Sodium [Moles/Vol] 134 mmol/L Normal 133-145 [facility] Comment on above: Performed By: #### L 100.0100, L500.2500 ####[facility] [address] [place], [address] Urea nitrogen [Mass/Vol] 30 mg/dL High - [facility] Comment on above: Performed By: #### L 100.0100, L500.2500 ####[facility] [address] [place], [address] Bedside Glucoseon 08-09-2024 FINGERSTICK GLU 77 mg/dL Normal 74-106 [facility] Comment on above: Result Comment: LUIZA DIAZ OF PATIENT CARE PER NURSING PROTOCOL Performed By: #### L 501.080 ####[facility] [address] [place], [address] CBC W/Diff, Automatedon 07-27 Absolute Lymph 0.38 X10 3/uL Low 0.83-4.51 [facility] Comment on above: Performed By: #### L 100.0100, L500.2500 ####[facility] [address] [place], [address] Absolute Neut 5.4 X10 3/uL Normal 2.0-7.7 [facility] Comment on above: Performed By: #### L 100.0100, L500.2500 ####[facility] [address] [place], [address] Basophils/100 WBC (Bld) 0.8 % Normal 0-1 [facility] Comment on above: Performed By: #### L 100.0100, L500.2500 ####[facility] [address] [place], [address] Eosinophils/100 WBC (Bld) 1.9 % Normal 0-5 [facility] Comment on above: Performed By: #### L 100.0100, L500.2500 ####[facility] [address] [place], [address] Erythrocyte distribution width (RBC) [Ratio] 18.8 % High 11.6-14.6 [facility] Comment on above: Performed By: #### L 100.0100, L500.2500 ####[facility] [address] [place], [address] Hematocrit (Bld) [Volume fraction] 27.4 % Low 37-47 [facility] Comment on above: Performed By: #### L 100.0100, L500.2500 ####[facility] [address] [place], [address] Hemoglobin (Bld) [Mass/Vol] 8.3 g/dL Low 12.0-15.0 [facility] Comment on above: Performed By: #### L 100.0100, L500.2500 ####[facility] [address] [place], [address] IG% 2.000 High 0.0-0.9 [facility] Comment on above: Result Comment: IG% - Immature Granulocytes (promyelocytes, myelocytes andmetamyelocytes) > 1% indicates that a LEFT SHIFT is Present. Performed By: #### L 100.0100, L500.2500 ####[facility] [address] [place], [address] Lymphocytes/100 WBC (Bld) 6.0 % Low 19-41 [facility] Comment on above: Performed By: #### L 100.0100, L500.2500 ####[facility] [address] [place], [address] MCH (RBC) [Entitic mass] 26.7 pg Low 27.0-32.0 [facility] Comment on above: Performed By: #### L 100.0100, L500.2500 ####[facility] [address] [place], [address] MCHC (RBC) [Mass/Vol] 30.3 g/dL Low 32-36 [facility] Comment on above: Performed By: #### L 100.0100, L500.2500 ####[facility] [address] [place], [address] MCV (RBC) [Entitic vol] 88.1 fL Normal 81-99 [facility] Comment on above: Performed By: #### L 100.0100, L500.2500 ####[facility] [address] [place], [address] Monocytes/100 WBC (Bld) 5.0 % Normal 0-10 [facility] Comment on above: Performed By: #### L 100.0100, L500.2500 ####[facility] [address] [place], [address] Neutrophils/100 WBC (Bld) 84.3 % High 47-70 [facility] Comment on above: Performed By: #### L 100.0100, L500.2500 ####[facility] [address] [place], [address] Nucleated RBC (Bld) [#/Vol] 0 10*3/uL Normal 0-5 [facility] Comment on above: Performed By: #### L 100.0100, L500.2500 ####[facility] [address] [place], [address] Platelet mean volume (Bld) [Entitic vol] 10.3 fL Normal 6.2-12.0 [facility] Comment on above: Performed By: #### L 100.0100, L500.2500 ####[facility] [address] [place], [address] Platelets (Bld) [#/Vol] 111 10*3/uL Low 150-450 [facility] Comment on above: Performed By: #### L 100.0100, L500.2500 ####[facility] [address] [place], [address] RBC (Bld) [#/Vol] 3.11 10*6/uL Low 4.2-5.4 [facility] Comment on above: Performed By: #### L 100.0100, L500.2500 ####[facility] [address] [place], [address] RDW SD 60.7 fl High 35.1-43.9 [facility] Comment on above: Performed By: #### L 100.0100, L500.2500 ####[facility] [address] [place], [address] WBC (Bld) [#/Vol] 6.4 10*3/uL Normal 4.4-11.0 [facility] Comment on above: Performed By: #### L 100.0100, L500.2500 ####[facility] [address] [place], [address] Glucoseon 08-09-2024 Glucose [Mass/Vol] 108 mg/dL High 70-99 [facility] Comment on above: Order Comment: Comme nts: blood sugar monitoring, poor peripheral perfusion Performed By: #### L 501.0100 ####[facility] [address] [place], [address] Glucose [Mass/Vol] 100 mg/dL High 70-99 [facility] Comment on above: Order Comment: Comme nts: Glucose mon q6h, poor perfusion for finger stick Performed By: #### L 501.0100 ####[facility] [address] [place], [address] Abdomen/Pelvis WITH Contrast on 08-08-2024 Abdomen/Pelvis WITH Contrast Normal [facility] Basic Metabolic Profile (BMP )on 08-08-2024 BUN/CRE 24.5 RATIO High 10-20 [facility] Comment on above: Performed By: #### L 100.0100, L500.2500 ####[facility] [address] [place], [address] Calcium [Mass/Vol] 7.7 mg/dL Normal 7.6-11.0 [facility] Comment on above: Performed By: #### L 100.0100, L500.2500 ####[facility] [address] [place], [address] Chloride [Moles/Vol] 104 mmol/L Normal 98-108 [facility] Comment on above: Performed By: #### L 100.0100, L500.2500 ####[facility] [address] [place], [address] CO2 [Moles/Vol] 22.6 mmol/L Normal 21.0-32.0 [facility] Comment on above: Performed By: #### L 100.0100, L500.2500 ####[facility] [address] [place], [address] Creatinine [Mass/Vol] 1.31 mg/dL High 0.70-1.20 [facility] Comment on above: Performed By: #### L 100.0100, L500.2500 ####[facility] [address] [place], [address] ECRCL 30.16 ml/min Low 50-250 [facility] Comment on above: Performed By: #### L 100.0100, L500.2500 ####[facility] [address] [place], [address] GAP 9 Normal 5-15 [facility] Comment on above: Performed By: #### L 100.0100, L500.2500 ####[facility] [address] [place], [address] GFR/1.73 sq M.predicted among non-blacks MDRD (S/P/Bld) [Vol rate/Area] 46 mL/min/{1.73_m2} Low >60 [facility] Comment on above: Result Comment: mL/m in/1.73m2 CKD-EPI Creatinine Equation (2020) Performed By: #### L 100.0100, L500.2500 ####[facility] [address] [place], [address] Glucose [Mass/Vol] 89 mg/dL Normal 70-99 [facility] Comment on above: Performed By: #### L 100.0100, L500.2500 ####[facility] [address] [place], [address] Potassium [Moles/Vol] 3.8 mmol/L Normal 3.3-5.1 [facility] Comment on above: Performed By: #### L 100.0100, L500.2500 ####[facility] [address] [place], [address] Sodium [Moles/Vol] 135 mmol/L Normal 133-145 [facility] Comment on above: Performed By: #### L 100.0100, L500.2500 ####[facility] [address] [place], [address] Urea nitrogen [Mass/Vol] 32 mg/dL High 4-19 [facility] Comment on above: Performed By: #### L 100.0100, L500.2500 ####[facility] [address] [place], [address] Bedside Glucoseon 08-08-2024 FINGERSTICK GLU 84 mg/dL Normal 74-106 [facility] Comment on above: Result Comment: LUIZA GEMENT OF PATIENT CARE PER NURSING PROTOCOL Performed By: #### L 501.080 ####[facility] [address] [place], [address] FINGERSTICK GLU 136 mg/dL High 74-106 [facility] Comment on above: Result Comment: LUIZA GEMENT OF PATIENT CARE PER NURSING PROTOCOL Performed By: #### L 501.080 ####[facility] [address] [place], [address] FINGERSTICK GLU 53 mg/dL Low 74-106 [facility] Comment on above: Result Comment: LUIZA GEMENT OF PATIENT CARE PER NURSING PROTOCOL Performed By: #### L 501.080 ####[facility] [address] [place], [address] FINGERSTICK GLU 55 mg/dL Low 74-106 [facility] Comment on above: Result Comment: LUIZA GEMENT OF PATIENT CARE PER NURSING PROTOCOL Performed By: #### L 501.080 ####[facility] [address] [place], [address] CBC W/Diff, Automatedon - Absolute Lymph 0.67 X10 3/uL Low 0.83-4.51 [facility] Comment on above: Performed By: #### L 100.0100, L500.2500 ####[facility] [address] [place], [address] Absolute Neut 7.2 X10 3/uL Normal 2.0-7.7 [facility] Comment on above: Performed By: #### L 100.0100, L500.2500 ####[facility] [address] [place], [address] Basophils/100 WBC (Bld) 0.6 % Normal 0-1 [facility] Comment on above: Performed By: #### L 100.0100, L500.2500 ####[facility] [address] [place], [address] Eosinophils/100 WBC (Bld) 1.2 % Normal 0-5 [facility] Comment on above: Performed By: #### L 100.0100, L500.2500 ####[facility] [address] [place], [address] Erythrocyte distribution width (RBC) [Ratio] 18.6 % High 11.6-14.6 [facility] Comment on above: Performed By: #### L 100.0100, L500.2500 ####[facility] [address] [place], [address] Hematocrit (Bld) [Volume fraction] 27.8 % Low 37-47 [facility] Comment on above: Performed By: #### L 100.0100, L500.2500 ####[facility] [address] [place], [address] Hemoglobin (Bld) [Mass/Vol] 8.6 g/dL Low 12.0-15.0 [facility] Comment on above: Performed By: #### L 100.0100, L500.2500 ####[facility] [address] [place], [address] IG% 1.400 High 0.0-0.9 [facility] Comment on above: Result Comment: IG% - Immature Granulocytes (promyelocytes, myelocytes andmetamyelocytes) > 1% indicates that a LEFT SHIFT is Present. Performed By: #### L 100.0100, L500.2500 ####[facility] [address] [place], [address] Lymphocytes/100 WBC (Bld) 7.9 % Low 19-41 [facility] Comment on above: Performed By: #### L 100.0100, L500.2500 ####[facility] [address] [place], [address] MCH (RBC) [Entitic mass] 27.1 pg Normal 27.0-32.0 [facility] Comment on above: Performed By: #### L 100.0100, L500.2500 ####[facility] [address] [place], [address] MCHC (RBC) [Mass/Vol] 30.9 g/dL Low 32-36 [facility] [facility] Comment on above: Performed By: #### L 100.0100, L500.2500 ####[facility] [address] [place], [address] MCV (RBC) [Entitic vol] 87.7 fL Normal 81-99 [facility] Comment on above: Performed By: #### L 100.0100, L500.2500 ####[facility] [address] [place], [address] Monocytes/100 WBC (Bld) 3.8 % Normal 0-10 [facility] Comment on above: Performed By: #### L 100.0100, L500.2500 ####[facility] [address] [place], [address] Neutrophils/100 WBC (Bld) 85.1 % High 47-70 [facility] Comment on above: Performed By: #### L 100.0100, L500.2500 ####[facility] [address] [place], [address] Nucleated RBC (Bld) [#/Vol] 0 10*3/uL Normal 0-5 [facility] Comment on above: Performed By: #### L 100.0100, L500.2500 ####[facility] [address] [place], [address] Platelet mean volume (Bld) [Entitic vol] 9.5 fL Normal 6.2-12.0 [facility] Comment on above: Performed By: #### L 100.0100, L500.2500 ####[facility] [address] [place], [address] Platelets (Bld) [#/Vol] 147 10*3/uL Low 150-450 [facility] Comment on above: Performed By: #### L 100.0100, L500.2500 ####[facility] [address] [place], [address] RBC (Bld) [#/Vol] 3.17 10*6/uL Low 4.2-5.4 [facility] Comment on above: Performed By: #### L 100.0100, L500.2500 ####[facility] [address] [place], [address] RDW SD 59.1 fl High 35.1-43.9 [facility] Comment on above: Performed By: #### L 100.0100, L500.2500 ####[facility] [address] [place], [address] WBC (Bld) [#/Vol] 8.5 10*3/uL Normal 4.4-11.0 [facility] Comment on above: Performed By: #### L 100.0100, L500.2500 ####[facility] [address] [place], [address] L3410.9998on 08-08-2024 [facility] Misc. COMMENT Normal . [facility] Comment on above: Order Comment: SERUM /[id number] C Result Comment: Test Ordered: [id number] Cystatin CCystatin C 2.88 [H ] mg/L CB Reference Range: 0.72-1.16Performed at: - [facility] [id number] Director: Manjinder Babb PhD, Phone: [phone] Performed By: #### L 3410.9998 ####[facility] [address] [place], [address] Basic Metabolic Profile (BMP )on 08-07-2024 BUN/CRE 29.1 RATIO High 10-20 [facility] Comment on above: Performed By: #### L 100.0100, L500.2500 ####[facility] [address] [place], [address] Calcium [Mass/Vol] 7.5 mg/dL Low 7.6-11.0 [facility] Comment on above: Performed By: #### L 100.0100, L500.2500 ####[facility] [address] [place], [address] Chloride [Moles/Vol] 103 mmol/L Normal 98-108 [facility] Comment on above: Performed By: #### L 100.0100, L500.2500 ####[facility] [address] [place], [address] CO2 [Moles/Vol] 19.3 mmol/L Low 21.0-32.0 [facility] Comment on above: Performed By: #### L 100.0100, L500.2500 ####[facility] [address] [place], [address] Creatinine [Mass/Vol] 1.50 mg/dL High 0.70-1.20 [facility] Comment on above: Performed By: #### L 100.0100, L500.2500 ####[facility] [address] [place], [address] ECRCL 27.32 ml/min Low 50-250 [facility] Comment on above: Performed By: #### L 100.0100, L500.2500 ####[facility] [address] [place], [address] GAP 11 Normal 5-15 [facility] Comment on above: Performed By: #### L 100.0100, L500.2500 ####[facility] [address] [place], [address] GFR/1.73 sq M.predicted among non-blacks MDRD (S/P/Bld) [Vol rate/Area] 39 mL/min/{1.73_m2} Low >60 [facility] Comment on above: Result Comment: mL/m in/1.73m2 CKD-EPI Creatinine Equation (2020) Performed By: #### L 100.0100, L500.2500 ####[facility] [address] [place], [address] Glucose [Mass/Vol] 84 mg/dL Normal 70-99 [facility] Comment on above: Performed By: #### L 100.0100, L500.2500 ####[facility] [address] [place], [address] Potassium [Moles/Vol] 3.7 mmol/L Normal 3.3-5.1 [facility] Comment on above: Performed By: #### L 100.0100, L500.2500 ####[facility] [address] [place], [address] Sodium [Moles/Vol] 133 mmol/L Normal 133-145 [facility] Comment on above: Performed By: #### L 100.0100, L500.2500 ####[facility] [address] [place], [address] Urea nitrogen [Mass/Vol] 44 mg/dL High 4-19 [facility] Comment on above: Performed By: #### L 100.0100, L500.2500 ####[facility] [address] [place], [address] Bedside Glucoseon 08-07-2024 FINGERSTICK GLU 130 mg/dL High 74-106 [facility] Comment on above: Result Comment: LUIZA GEMENT OF PATIENT CARE PER NURSING PROTOCOL Performed By: #### L 501.080 ####[facility] [address] [place], [address] FINGERSTICK GLU 95 mg/dL Normal 74-106 [facility] Comment on above: Result Comment: LUIZA GEMENT OF PATIENT CARE PER NURSING PROTOCOL Performed By: #### L 501.080 ####[facility] [address] [place], [address] FINGERSTICK GLU 76 mg/dL Normal 74-106 [facility] Comment on above: Result Comment: LUIZA GEMENT OF PATIENT CARE PER NURSING PROTOCOL Performed By: #### L 501.080 ####[facility] [address] [place], [address] FINGERSTICK GLU 79 mg/dL Normal 74-106 [facility] Comment on above: Result Comment: LUIZA GEMENT OF PATIENT CARE PER NURSING PROTOCOL Performed By: #### L 501.080 ####[facility] [address] [place], [address] CBC W/Diff, Automatedon 07-27 Absolute Lymph 0.82 X10 3/uL Low 0.83-4.51 [facility] Comment on above: Performed By: #### L 100.0100, L500.2500 ####[facility] [address] [place], [address] Absolute Neut 9.6 X10 3/uL High 2.0-7.7 [facility] Comment on above: Performed By: #### L 100.0100, L500.2500 ####[facility] [address] [place], [address] Basophils/100 WBC (Bld) 0.5 % Normal 0-1 [facility] Comment on above: Performed By: #### L 100.0100, L500.2500 ####[facility] [address] [place], [address] Eosinophils/100 WBC (Bld) 1.3 % Normal 0-5 [facility] Comment on above: Performed By: #### L 100.0100, L500.2500 ####[facility] [address] [place], [address] Erythrocyte distribution width (RBC) [Ratio] 18.6 % High 11.6-14.6 [facility] Comment on above: Performed By: #### L 100.0100, L500.2500 ####[facility] [address] [place], [address] Hematocrit (Bld) [Volume fraction] 29.4 % Low 37-47 [facility] Comment on above: Performed By: #### L 100.0100, L500.2500 ####[facility] [address] [place], [address] Hemoglobin (Bld) [Mass/Vol] 9.1 g/dL Low 12.0-15.0 [facility] Comment on above: Performed By: #### L 100.0100, L500.2500 ####[facility] [address] [place], [address] IG% 2.100 High 0.0-0.9 [facility] Comment on above: Result Comment: IG% - Immature Granulocytes (promyelocytes, myelocytes andmetamyelocytes) > 1% indicates that a LEFT SHIFT is Present. Performed By: #### L 100.0100, L500.2500 ####[facility] [address] [place], [address] Lymphocytes/100 WBC (Bld) 7.3 % Low 19-41 [facility] Comment on above: Performed By: #### L 100.0100, L500.2500 ####[facility] [address] [place], [address] MCH (RBC) [Entitic mass] 27.1 pg Normal 27.0-32.0 [facility] Comment on above: Performed By: #### L 100.0100, L500.2500 ####[facility] [address] [place], [address] MCHC (RBC) [Mass/Vol] 31.0 g/dL Low 32-36 [facility] Comment on above: Performed By: #### L 100.0100, L500.2500 ####[facility] [address] [place], [address] MCV (RBC) [Entitic vol] 87.5 fL Normal 81-99 [facility] Comment on above: Performed By: #### L 100.0100, L500.2500 ####[facility] [address] [place], [address] Monocytes/100 WBC (Bld) 3.5 % Normal 0-10 [facility] Comment on above: Performed By: #### L 100.0100, L500.2500 ####[facility] [address] [place], [address] Neutrophils/100 WBC (Bld) 85.3 % High 47-70 [facility] Comment on above: Performed By: #### L 100.0100, L500.2500 ####[facility] [address] [place], [address] Nucleated RBC (Bld) [#/Vol] 0 10*3/uL Normal 0-5 [facility] Comment on above: Performed By: #### L 100.0100, L500.2500 ####[facility] [address] [place], [address] Platelet mean volume (Bld) [Entitic vol] 9.8 fL Normal 6.2-12.0 [facility] Comment on above: Performed By: #### L 100.0100, L500.2500 ####[facility] [address] [place], [address] Platelets (Bld) [#/Vol] 163 10*3/uL Normal 150-450 [facility] Comment on above: Performed By: #### L 100.0100, L500.2500 ####[facility] [address] [place], [address] RBC (Bld) [#/Vol] 3.36 10*6/uL Low 4.2-5.4 [facility] Comment on above: Performed By: #### L 100.0100, L500.2500 ####[facility] [address] [place], [address] RDW SD 57.8 fl High 35.1-43.9 [facility] Comment on above: Performed By: #### L 100.0100, L500.2500 ####[facility] [address] [place], [address] WBC (Bld) [#/Vol] 11.2 10*3/uL High 4.4-11.0 [facility] Comment on above: Performed By: #### L 100.0100, L500.2500 ####[facility] [address] [place], [address] CDIFF (PCR)on 08-07-2024 CDIFF Normal [facility] Comment on above: Performed By: #### M 100.3596, M100.0799 ####[facility] [address] [place], [address] Clostridium Diff Toxin/Agon 08-07-2024 CDIFF (EIA) Normal [facility] Comment on above: Performed By: #### M 100.6796, M100.6795 ####[facility] [address] [place], [address] Clostridium difficile detect ion by polymerase chain reactionOrdered By: Judd Galvin on 08-07-2024 C. difficile DNA MOISES+probe Ql (Unsp spec) [facility] Glucoseon 08-07-2024 Glucose [Mass/Vol] 127 mg/dL High 70-99 [facility] Comment on above: Order Comment: Comme nts: hypoglycemia Performed By: #### L 501.0100 ####[facility] [address] [place], [address] Stool Clostridium difficile detectionOrdered By: Judd Galvin on 08-07-2024 C. difficile Ql (Stl) [facility] Abdomen/Pelvis WITH Contrast on 08-06-2024 Abdomen/Pelvis WITH Contrast Normal [facility] Basic Metabolic Profile (BMP )on 08-06-2024 BUN/CRE 29.8 RATIO High 10-20 [facility] Comment on above: Performed By: #### L 100.0100, L500.2500 ####[facility] [address] [place], [address] Calcium [Mass/Vol] 7.5 mg/dL Low 7.6-11.0 [facility] Comment on above: Performed By: #### L 100.0100, L500.2500 ####[facility] [address] [place], [address] Chloride [Moles/Vol] 102 mmol/L Normal 98-108 [facility] Comment on above: Performed By: #### L 100.0100, L500.2500 ####[facility] [address] [place], [address] CO2 [Moles/Vol] 21.2 mmol/L Normal 21.0-32.0 [facility] Comment on above: Performed By: #### L 100.0100, L500.2500 ####[facility] [address] [place], [address] Creatinine [Mass/Vol] 1.27 mg/dL High 0.70-1.20 [facility] Comment on above: Performed By: #### L 100.0100, L500.2500 ####[facility] [address] [place], [address] ECRCL 32.27 ml/min Low 50-250 [facility] Comment on above: Performed By: #### L 100.0100, L500.2500 ####[facility] [address] [place], [address] GAP 10 Normal 5-15 [facility] Comment on above: Performed By: #### L 100.0100, L500.2500 ####[facility] [address] [place], [address] GFR/1.73 sq M.predicted among non-blacks MDRD (S/P/Bld) [Vol rate/Area] 48 mL/min/{1.73_m2} Low >60 [facility] Comment on above: Result Comment: mL/m in/1.73m2 CKD-EPI Creatinine Equation (2020) Performed By: #### L 100.0100, L500.2500 ####[facility] [address] [place], [address] Glucose [Mass/Vol] 94 mg/dL Normal 70-99 [facility] Comment on above: Performed By: #### L 100.0100, L500.2500 ####[facility] [address] [place], [address] Potassium [Moles/Vol] 3.7 mmol/L Normal 3.3-5.1 [facility] Comment on above: Performed By: #### L 100.0100, L500.2500 ####[facility] [address] [place], [address] Sodium [Moles/Vol] 133 mmol/L Normal 133-145 [facility] Comment on above: Performed By: #### L 100.0100, L500.2500 ####[facility] [address] [place], [address] Urea nitrogen [Mass/Vol] 38 mg/dL High 4-19 [facility] Comment on above: Performed By: #### L 100.0100, L500.2500 ####[facility] [address] [place], [address] BUN Normal - [facility] Comment on above: Result Comment: Canc elled via OM: Order cancelled - Patient discharged Performed By: #### L 100.0100, L500.2500 ####[facility] [address] [place], [address] BUN/CRE Normal 10-20 [facility] Comment on above: Result Comment: Canc elled via OM: Order cancelled - Patient discharged Performed By: #### L 100.0100, L500.2500 ####[facility] [address] [place], [address] Calcium Normal 7.6-11.0 [facility] Comment on above: Result Comment: Canc elled via OM: Order cancelled - Patient discharged Performed By: #### L 100.0100, L500.2500 ####[facility] [address] [place], [address] CL Normal 98-107 [facility] Comment on above: Result Comment: Canc elled via OM: Order cancelled - Patient discharged Performed By: #### L 100.0100, L500.2500 ####[facility] [address] [place], [address] CO2 Normal 21.0-32.0 [facility] Comment on above: Result Comment: Canc elled via OM: Order cancelled - Patient discharged Performed By: #### L 100.0100, L500.2500 ####[facility] [address] [place], [address] CREAT,SERUM Normal 0.70-1.20 [facility] Comment on above: Result Comment: Canc elled via OM: Order cancelled - Patient discharged Performed By: #### L 100.0100, L500.2500 ####[facility] [address] [place], [address] eGFR Normal >60 [facility] Comment on above: Result Comment: Canc elled via OM: Order cancelled - Patient discharged Performed By: #### L 100.0100, L500.2500 ####[facility] [address] [place], [address] GAP Normal 5-15 [facility] Comment on above: Result Comment: Canc elled via OM: Order cancelled - Patient discharged Performed By: #### L 100.0100, L500.2500 ####[facility] [address] [place], [address] GLU Normal 70-99 [facility] Comment on above: Result Comment: Canc elled via OM: Order cancelled - Patient discharged Performed By: #### L 100.0100, L500.2500 ####[facility] [address] [place], [address] Potassium Normal 3.5-5.1 [facility] Comment on above: Result Comment: Canc elled via OM: Order cancelled - Patient discharged Performed By: #### L 100.0100, L500.2500 ####[facility] [address] [place], [address] Basic Metabolic Profile (BMP) Normal 136-145 [facility] Comment on above: Result Comment: Canc elled via OM: Order cancelled - Patient discharged Performed By: #### L 100.0100, L500.2500 ####[facility] [address] [place], [address] Bedside Glucoseon 08-06-2024 FINGERSTICK GLU 108 mg/dL High 74-106 [facility] Comment on above: Result Comment: LUIZA GEMENT OF PATIENT CARE PER NURSING PROTOCOL Performed By: #### L 501.080 ####[facility] [address] [place], [address] FINGERSTICK GLU 77 mg/dL Normal 74-106 [facility] Comment on above: Result Comment: LUIZA GEMENT OF PATIENT CARE PER NURSING PROTOCOL Performed By: #### L 501.080 ####[facility] [address] [place], [address] FINGERSTICK GLU 73 mg/dL Low 74-106 [facility] Comment on above: Result Comment: LUIZA GEMENT OF PATIENT CARE PER NURSING PROTOCOL Performed By: #### L 501.080 ####[facility] [address] [place], [address] FINGERSTICK GLU 71 mg/dL Low 74-106 [facility] Comment on above: Result Comment: LUIZA GEMENT OF PATIENT CARE PER NURSING PROTOCOL Performed By: #### L 501.080 ####[facility] [address] [place], [address] FINGERSTICK GLU 93 mg/dL Normal 74-106 [facility] Comment on above: Result Comment: LUIZA GEMENT OF PATIENT CARE PER NURSING PROTOCOL Performed By: #### L 501.080 ####[facility] [address] [place], [address] FINGERSTICK GLU 74 mg/dL Normal 74-106 [facility] Comment on above: Result Comment: LUIZA GEMENT OF PATIENT CARE PER NURSING PROTOCOL Performed By: #### L 501.080 ####[facility] [address] [place], [address] CBC W/Diff, Automatedon 03-1 Absolute Neut Normal 2.0-7.7 [facility] Comment on above: Result Comment: Canc elled via OM: Order cancelled - Patient discharged Performed By: #### L 100.0100, L500.2500 ####[facility] [address] [place], [address] HCT Normal 37-47 [facility] Comment on above: Result Comment: Canc elled via OM: Order cancelled - Patient discharged Performed By: #### L 100.0100, L500.2500 ####[facility] [address] [place], [address] HGB Normal 12.0-15.0 [facility] Comment on above: Result Comment: Canc elled via OM: Order cancelled - Patient discharged Performed By: #### L 100.0100, L500.2500 ####[facility] [address] [place], [address] MCH Normal 27.0-32.0 [facility] Comment on above: Result Comment: Canc elled via OM: Order cancelled - Patient discharged Performed By: #### L 100.0100, L500.2500 ####[facility] [address] [place], [address] MCHC Normal 32-36 [facility] Comment on above: Result Comment: Canc elled via OM: Order cancelled - Patient discharged Performed By: #### L 100.0100, L500.2500 ####[facility] [address] [place], [address] MCV Normal 81-99 [facility] Comment on above: Result Comment: Canc elled via OM: Order cancelled - Patient discharged Performed By: #### L 100.0100, L500.2500 ####[facility] [address] [place], [address] NEUT% Normal 47-70 [facility] Comment on above: Result Comment: Canc elled via OM: Order cancelled - Patient discharged Performed By: #### L 100.0100, L500.2500 ####[facility] [address] [place], [address] PLT Normal 150-450 [facility] Comment on above: Result Comment: Canc elled via OM: Order cancelled - Patient discharged Performed By: #### L 100.0100, L500.2500 ####[facility] [address] [place], [address] RBC Normal 4.2-5.4 [facility] Comment on above: Result Comment: Canc elled via OM: Order cancelled - Patient discharged Performed By: #### L 100.0100, L500.2500 ####[facility] [address] [place], [address] RDW CV Normal 11.6-14.6 [facility] Comment on above: Result Comment: Canc elled via OM: Order cancelled - Patient discharged Performed By: #### L 100.0100, L500.2500 ####[facility] [address] [place], [address] RDW SD Normal 35.1-43.9 [facility] Comment on above: Result Comment: Canc elled via OM: Order cancelled - Patient discharged Performed By: #### L 100.0100, L500.2500 ####[facility] [address] [place], [address] WBC Normal 4.4-11.0 [facility] Comment on above: Result Comment: Canc elled via OM: Order cancelled - Patient discharged Performed By: #### L 100.0100, L500.2500 ####[facility] [address] [place], [address] Absolute Lymph 1.00 X10 3/uL Normal 0.83-4.51 [facility] Comment on above: Performed By: #### L 100.0100, L500.2500 ####[facility] [address] [place], [address] Absolute Neut 6.5 X10 3/uL Normal 2.0-7.7 [facility] Comment on above: Performed By: #### L 100.0100, L500.2500 ####[facility] [address] [place], [address] Basophils/100 WBC (Bld) 0.9 % Normal 0-1 [facility] Comment on above: Performed By: #### L 100.0100, L500.2500 ####[facility] [address] [place], [address] Eosinophils/100 WBC (Bld) 1.5 % Normal 0-5 [facility] Comment on above: Performed By: #### L 100.0100, L500.2500 ####[facility] [address] [place], [address] Erythrocyte distribution width (RBC) [Ratio] 17.7 % High 11.6-14.6 [facility] Comment on above: Performed By: #### L 100.0100, L500.2500 ####[facility] [address] [place], [address] Hematocrit (Bld) [Volume fraction] 26.8 % Low 37-47 [facility] Comment on above: Performed By: #### L 100.0100, L500.2500 ####[facility] [address] [place], [address] Hemoglobin (Bld) [Mass/Vol] 8.2 g/dL Low 12.0-15.0 [facility] Comment on above: Performed By: #### L 100.0100, L500.2500 ####[facility] [address] [place], [address] IG% 2.600 High 0.0-0.9 [facility] Comment on above: Result Comment: IG% - Immature Granulocytes (promyelocytes, myelocytes andmetamyelocytes) > 1% indicates that a LEFT SHIFT is Present. Performed By: #### L 100.0100, L500.2500 ####[facility] [address] [place], [address] Lymphocytes/100 WBC (Bld) 12.2 % Low 19-41 [facility] Comment on above: Performed By: #### L 100.0100, L500.2500 ####[facility] [address] [place], [address] MCH (RBC) [Entitic mass] 27.0 pg Normal 27.0-32.0 [facility] Comment on above: Performed By: #### L 100.0100, L500.2500 ####[facility] [address] [place], [address] MCHC (RBC) [Mass/Vol] 30.6 g/dL Low 32-36 [facility] Comment on above: Performed By: #### L 100.0100, L500.2500 ####[facility] [address] [place], [address] MCV (RBC) [Entitic vol] 88.2 fL Normal 81-99 [facility] Comment on above: Performed By: #### L 100.0100, L500.2500 ####[facility] [address] [place], [address] Monocytes/100 WBC (Bld) 3.8 % Normal 0-10 [facility] Comment on above: Performed By: #### L 100.0100, L500.2500 ####[facility] [address] [place], [address] Neutrophils/100 WBC (Bld) 79.0 % High 47-70 [facility] Comment on above: Performed By: #### L 100.0100, L500.2500 ####[facility] [address] [place], [address] Nucleated RBC (Bld) [#/Vol] 0 10*3/uL Normal 0-5 [facility] Comment on above: Performed By: #### L 100.0100, L500.2500 ####[facility] [address] [place], [address] Platelet mean volume (Bld) [Entitic vol] 9.3 fL Normal 6.2-12.0 [facility] Comment on above: Performed By: #### L 100.0100, L500.2500 ####[facility] [address] [place], [address] Platelets (Bld) [#/Vol] 167 10*3/uL Normal 150-450 [facility] Comment on above: Performed By: #### L 100.0100, L500.2500 ####[facility] [address] [place], [address] RBC (Bld) [#/Vol] 3.04 10*6/uL Low 4.2-5.4 [facility] Comment on above: Performed By: #### L 100.0100, L500.2500 ####[facility] [address] [place], [address] RDW SD 56.7 fl High 35.1-43.9 [facility] Comment on above: Performed By: #### L 100.0100, L500.2500 ####[facility] [address] [place], [address] WBC (Bld) [#/Vol] 8.2 10*3/uL Normal 4.4-11.0 [facility] Comment on above: Performed By: #### L 100.0100, L500.2500 ####[facility] [address] [place], [address] Basic Metabolic Profile (BMP )on 08-05-2024 BUN/CRE 32.7 RATIO High 10-20 [facility] Comment on above: Performed By: #### L 100.0100, L500.2500 ####[facility] [address] [place], [address] Calcium [Mass/Vol] 7.9 mg/dL Normal 7.6-11.0 [facility] Comment on above: Performed By: #### L 100.0100, L500.2500 ####[facility] [address] [place], [address] Chloride [Moles/Vol] 102 mmol/L Normal 98-108 [facility] Comment on above: Performed By: #### L 100.0100, L500.2500 ####[facility] [address] [place], [address] CO2 [Moles/Vol] 20.3 mmol/L Low 21.0-32.0 [facility] Comment on above: Performed By: #### L 100.0100, L500.2500 ####[facility] [address] [place], [address] Creatinine [Mass/Vol] 1.69 mg/dL High 0.70-1.20 [facility] Comment on above: Performed By: #### L 100.0100, L500.2500 ####[facility] [address] [place], [address] ECRCL 25.06 ml/min Low 50-250 [facility] Comment on above: Performed By: #### L 100.0100, L500.2500 ####[facility] [address] [place], [address] GAP 12 Normal 5-15 [facility] Comment on above: Performed By: #### L 100.0100, L500.2500 ####[facility] [address] [place], [address] GFR/1.73 sq M.predicted among non-blacks MDRD (S/P/Bld) [Vol rate/Area] 34 mL/min/{1.73_m2} Low >60 [facility] Comment on above: Result Comment: mL/m in/1.73m2 CKD-EPI Creatinine Equation (2020) Performed By: #### L 100.0100, L500.2500 ####[facility] [address] [place], [address] Glucose [Mass/Vol] 81 mg/dL Normal 70-99 [facility] Comment on above: Performed By: #### L 100.0100, L500.2500 ####[facility] [address] [place], [address] Potassium [Moles/Vol] 5.0 mmol/L Normal 3.3-5.1 [facility] Comment on above: Performed By: #### L 100.0100, L500.2500 ####[facility] [address] [place], [address] Sodium [Moles/Vol] 135 mmol/L Normal 133-145 [facility] Comment on above: Performed By: #### L 100.0100, L500.2500 ####[facility] [address] [place], [address] Urea nitrogen [Mass/Vol] 55 mg/dL High 4-19 [facility] Comment on above: Performed By: #### L 100.0100, L500.2500 ####[facility] [address] [place], [address] BUN Normal 4-19 [facility] Comment on above: Result Comment: Canc elled via OM: Order cancelled - Patient discharged Performed By: #### L 500.2500, L100.0100 ####[facility] [address] [place], [address] BUN/CRE Normal 10-20 [facility] Comment on above: Result Comment: Canc elled via OM: Order cancelled - Patient discharged Performed By: #### L 500.2500, L100.0100 ####[facility] [address] [place], [address] Calcium Normal 7.6-11.0 [facility] Comment on above: Result Comment: Canc elled via OM: Order cancelled - Patient discharged Performed By: #### L 500.2500, L100.0100 ####[facility] [address] [place], [address] CL Normal 98-107 [facility] Comment on above: Result Comment: Canc elled via OM: Order cancelled - Patient discharged Performed By: #### L 500.2500, L100.0100 ####[facility] [address] [place], [address] CO2 Normal 21.0-32.0 [facility] Comment on above: Result Comment: Canc elled via OM: Order cancelled - Patient discharged Performed By: #### L 500.2500, L100.0100 ####[facility] [address] [place], [address] CREAT,SERUM Normal 0.70-1.20 [facility] Comment on above: Result Comment: Canc elled via OM: Order cancelled - Patient discharged Performed By: #### L 500.2500, L100.0100 ####[facility] [address] [place], [address] eGFR Normal >60 [facility] Comment on above: Result Comment: Canc elled via OM: Order cancelled - Patient discharged Performed By: #### L 500.2500, L100.0100 ####[facility] [address] [place], [address] GAP Normal 5-15 [facility] Comment on above: Result Comment: Canc elled via OM: Order cancelled - Patient discharged Performed By: #### L 500.2500, L100.0100 ####[facility] [address] [place], [address] GLU Normal 70-99 [facility] Comment on above: Result Comment: Canc elled via OM: Order cancelled - Patient discharged Performed By: #### L 500.2500, L100.0100 ####[facility] [address] [place], [address] Potassium Normal 3.5-5.1 [facility] Comment on above: Result Comment: Canc elled via OM: Order cancelled - Patient discharged Performed By: #### L 500.2500, L100.0100 ####[facility] [address] [place], [address] Basic Metabolic Profile (BMP) Normal 136-145 [facility] Comment on above: Result Comment: Canc elled via OM: Order cancelled - Patient discharged Performed By: #### L 500.2500, L100.0100 ####[facility] [address] [place], [address] Bedside Glucoseon 08-05-2024 FINGERSTICK GLU 74 mg/dL Normal 74-106 [facility] Comment on above: Result Comment: LUIZA GEMENT OF PATIENT CARE PER NURSING PROTOCOL Performed By: #### L 501.080 ####[facility] [address] [place], [address] FINGERSTICK GLU 97 mg/dL Normal 74-106 [facility] Comment on above: Result Comment: LUIZA GEMENT OF PATIENT CARE PER NURSING PROTOCOL Performed By: #### L 501.080 ####[facility] [address] [place], [address] FINGERSTICK GLU 102 mg/dL Normal 74-106 [facility] Comment on above: Result Comment: LUIZA GEMENT OF PATIENT CARE PER NURSING PROTOCOL Performed By: #### L 501.080 ####[facility] [address] [place], [address] FINGERSTICK GLU 59 mg/dL Low 74-106 [facility] Comment on above: Result Comment: LUIZA GEMENT OF PATIENT CARE PER NURSING PROTOCOL Performed By: #### L 501.080 ####[facility] [address] [place], [address] FINGERSTICK GLU 72 mg/dL Low 74-106 [facility] Comment on above: Result Comment: LUIZA GEMENT OF PATIENT CARE PER NURSING PROTOCOL Performed By: #### L 501.080 ####[facility] [address] [place], [address] FINGERSTICK GLU 96 mg/dL Normal 74-106 [facility] Comment on above: Result Comment: LUIZA GEMENT OF PATIENT CARE PER NURSING PROTOCOL Performed By: #### L 501.080 ####[facility] [address] [place], [address] FINGERSTICK GLU 66 mg/dL Low 74-106 [facility] Comment on above: Result Comment: LUIZA GEMENT OF PATIENT CARE PER NURSING PROTOCOL Performed By: #### L 501.080 ####[facility] [address] [place], [address] FINGERSTICK GLU 80 mg/dL Normal 74-106 [facility] Comment on above: Result Comment: LUIZA GEMENT OF PATIENT CARE PER NURSING PROTOCOL Performed By: #### L 501.080 ####[facility] [address] [place], [address] FINGERSTICK GLU 95 mg/dL Normal 74-106 [facility] Comment on above: Result Comment: LUIZA GEMENT OF PATIENT CARE PER NURSING PROTOCOL Performed By: #### L 501.080 ####[facility] [address] [place], [address] CBC W/Diff, Automatedon 03- 0-2024 Absolute Lymph 1.25 X10 3/uL Normal 0.83-4.51 [facility] Comment on above: Performed By: #### L 100.0100, L500.2500 ####[facility] [address] [place], [address] Absolute Neut 12.9 X10 3/uL High 2.0-7.7 [facility] Comment on above: Performed By: #### L 100.0100, L500.2500 ####[facility] [address] [place], [address] Basophils/100 WBC (Bld) 0.3 % Normal 0-1 [facility] Comment on above: Performed By: #### L 100.0100, L500.2500 ####[facility] [address] [place], [address] Eosinophils/100 WBC (Bld) 0.3 % Normal 0-5 [facility] Comment on above: Performed By: #### L 100.0100, L500.2500 ####[facility] [address] [place], [address] Erythrocyte distribution width (RBC) [Ratio] 17.0 % High 11.6-14.6 [facility] Comment on above: Performed By: #### L 100.0100, L500.2500 ####[facility] [address] [place], [address] Hematocrit (Bld) [Volume fraction] 27.0 % Low 37-47 [facility] Comment on above: Performed By: #### L 100.0100, L500.2500 ####[facility] [address] [place], [address] Hemoglobin (Bld) [Mass/Vol] 8.6 g/dL Low 12.0-15.0 [facility] Comment on above: Performed By: #### L 100.0100, L500.2500 ####[facility] [address] [place], [address] IG% 3.900 High 0.0-0.9 [facility] Comment on above: Result Comment: IG% - Immature Granulocytes (promyelocytes, myelocytes andmetamyelocytes) > 1% indicates that a LEFT SHIFT is Present. Performed By: #### L 100.0100, L500.2500 ####[facility] [address] [place], [address] Lymphocytes/100 WBC (Bld) 8.2 % Low 19-41 [facility] Comment on above: Performed By: #### L 100.0100, L500.2500 ####[facility] [address] [place], [address] MCH (RBC) [Entitic mass] 27.3 pg Normal 27.0-32.0 [facility] Comment on above: Performed By: #### L 100.0100, L500.2500 ####[facility] [address] [place], [address] MCHC (RBC) [Mass/Vol] 31.9 g/dL Low 32-36 [facility] Comment on above: Performed By: #### L 100.0100, L500.2500 ####[facility] [address] [place], [address] MCV (RBC) [Entitic vol] 85.7 fL Normal 81-99 [facility] Comment on above: Performed By: #### L 100.0100, L500.2500 ####[facility] [address] [place], [address] Monocytes/100 WBC (Bld) 3.4 % Normal 0-10 [facility] Comment on above: Performed By: #### L 100.0100, L500.2500 ####[facility] [address] [place], [address] Neutrophils/100 WBC (Bld) 83.9 % High 47-70 [facility] Comment on above: Performed By: #### L 100.0100, L500.2500 ####[facility] [address] [place], [address] Nucleated RBC (Bld) [#/Vol] 0 10*3/uL Normal 0-5 [facility] Comment on above: Performed By: #### L 100.0100, L500.2500 ####[facility] [address] [place], [address] Platelet mean volume (Bld) [Entitic vol] 9.2 fL Normal 6.2-12.0 [facility] Comment on above: Performed By: #### L 100.0100, L500.2500 ####[facility] [address] [place], [address] Platelets (Bld) [#/Vol] 234 10*3/uL Normal 150-450 [facility] Comment on above: Performed By: #### L 100.0100, L500.2500 ####[facility] [address] [place], [address] RBC (Bld) [#/Vol] 3.15 10*6/uL Low 4.2-5.4 [facility] Comment on above: Performed By: #### L 100.0100, L500.2500 ####[facility] [address] [place], [address] RDW SD 52.5 fl High 35.1-43.9 [facility] Comment on above: Performed By: #### L 100.0100, L500.2500 ####[facility] [address] [place], [address] WBC (Bld) [#/Vol] 15.3 10*3/uL High 4.4-11.0 [facility] Comment on above: Performed By: #### L 100.0100, L500.2500 ####[facility] [address] [place], [address] Absolute Neut Normal 2.0-7.7 [facility] Comment on above: Result Comment: Canc elled via OM: Order cancelled - Patient discharged Performed By: #### L 500.2500, L100.0100 ####[facility] [address] [place], [address] HCT Normal 37-47 [facility] Comment on above: Result Comment: Canc elled via OM: Order cancelled - Patient discharged Performed By: #### L 500.2500, L100.0100 ####[facility] [address] [place], [address] HGB Normal 12.0-15.0 [facility] Comment on above: Result Comment: Canc elled via OM: Order cancelled - Patient discharged Performed By: #### L 500.2500, L100.0100 ####[facility] [address] [place], [address] MCH Normal 27.0-32.0 [facility] Comment on above: Result Comment: Canc elled via OM: Order cancelled - Patient discharged Performed By: #### L 500.2500, L100.0100 ####[facility] [address] [place], [address] MCHC Normal 32-36 [facility] Comment on above: Result Comment: Canc elled via OM: Order cancelled - Patient discharged Performed By: #### L 500.2500, L100.0100 ####[facility] [address] [place], [address] MCV Normal 81-99 [facility] Comment on above: Result Comment: Canc elled via OM: Order cancelled - Patient discharged Performed By: #### L 500.2500, L100.0100 ####[facility] [address] [place], [address] NEUT% Normal 47-70 [facility] Comment on above: Result Comment: Canc elled via OM: Order cancelled - Patient discharged Performed By: #### L 500.2500, L100.0100 ####[facility] [address] [place], [address] PLT Normal 150-450 [facility] Comment on above: Result Comment: Canc elled via OM: Order cancelled - Patient discharged Performed By: #### L 500.2500, L100.0100 ####[facility] [address] [place], [address] RBC Normal 4.2-5.4 [facility] Comment on above: Result Comment: Canc elled via OM: Order cancelled - Patient discharged Performed By: #### L 500.2500, L100.0100 ####[facility] [address] [place], [address] RDW CV Normal 11.6-14.6 [facility] Comment on above: Result Comment: Canc elled via OM: Order cancelled - Patient discharged Performed By: #### L 500.2500, L100.0100 ####[facility] [address] [place], [address] RDW SD Normal 35.1-43.9 [facility] Comment on above: Result Comment: Canc elled via OM: Order cancelled - Patient discharged Performed By: #### L 500.2500, L100.0100 ####[facility] [address] [place], [address] WBC Normal 4.4-11.0 [facility] Comment on above: Result Comment: Canc elled via OM: Order cancelled - Patient discharged Performed By: #### L 500.2500, L100.0100 ####[facility] [address] [place], [place], [address] ALP [Catalytic activity/Vol] Ordered By: [facility] on 08-04-2024 Serum or plasma alkaline phosphatase measurement 56 U/L 35-104 [facility] ALT [Catalytic activity/Vol] Ordered By: [facility] on 08-04-2024 Serum or plasma alanine aminotransferase (ALT) measurement 7 U/L <35 [facility] Albumin [Mass/Vol]Ordered By : [facility] on 08-04-2024 Serum or plasma albumin measurement (mass/volume) 2.1 g/dL Low 3.4-4.8 [facility] Albumin/Globulin [Mass ratio ]Ordered By: [facility] on 08-04-2024 Serum or plasma albumin/globulin mass ratio 0.7 RATIO Low 0.9-2.4 [facility] [id number] 08-04-2024 ANTIBODY ID Normal [facility] Comment on above: Order Comment: CMV N EG? NNumber of units to transfuse: 1Is this product for anemia associated withhemoglobinopathy? NIs pt's Hgb is 10mmHg)? NIs this for PREOP anemia correction prior to anesthesia? NReason for Ordering Blood: ChronicIs there symptomatic anemia? NAre the blood/blood products to be transfused? YIs the patient having/had surgery? NWhen Armando Result Comment: CFYA Performed By: #### B MATEO [facility], [id number] ####[facility] [address] [place], [place], [address] BRCon 08-04-2024 RC Normal [facility] Comment on above: Result Comment: [id number] ON RC TRANSFUSED 08/04/24 1435 Performed By: #### B MATEO [facility], [id number] ####[facility] [address] [place], [place], [address] Basic Metabolic Profile (BMP )on 08-04-2024 BUN Normal 4-19 [facility] Comment on above: Result Comment: Canc elled via OM: Order cancelled - Patient discharged Performed By: #### L 100.0100, L500.2500 ####[facility] [address] [place], [place], [address] Order Comment: UTO X 2 PHLEBS, NOTIFIED NURSE THERESA Result Comment: MORE RECENT SPECIMEN COLLECTED. BUN/CRE Normal 10-20 [facility] Comment on above: Result Comment: Canc elled via OM: Order cancelled - Patient discharged Performed By: #### L 100.0100, L500.2500 ####[facility] [address] [place], [place], [address] Order Comment: UTO X 2 PHLEBS, NOTIFIED NURSE THERESA Result Comment: MORE RECENT SPECIMEN COLLECTED. Calcium Normal 7.6-11.0 [facility] Comment on above: Result Comment: Canc elled via OM: Order cancelled - Patient discharged Performed By: #### L 100.0100, L500.2500 ####[facility] [address] [place], [address] Order Comment: UTO X 2 PHLEBS, NOTIFIED NURSE THERESA Result Comment: MORE RECENT SPECIMEN COLLECTED. CL Normal 98-108 [facility] Comment on above: Result Comment: Canc elled via OM: Order cancelled - Patient discharged Performed By: #### L 100.0100, L500.2500 ####[facility] [address] [place], [place], [address] Order Comment: UTO X 2 PHLEBS, NOTIFIED NURSE THERESA Result Comment: MORE RECENT SPECIMEN COLLECTED. CO2 Normal 21.0-32.0 [facility] Comment on above: Result Comment: Canc elled via OM: Order cancelled - Patient discharged Performed By: #### L 100.0100, L500.2500 ####[facility] [address] [place], [place], [address] Order Comment: UTO X 2 PHLEBS, NOTIFIED NURSE THERESA Result Comment: MORE RECENT SPECIMEN COLLECTED. CREAT,SERUM Normal 0.70-1.20 [facility] Comment on above: Result Comment: Canc elled via OM: Order cancelled - Patient discharged Performed By: #### L 100.0100, L500.2500 ####[facility] [address] [place], [address] Order Comment: UTO X 2 PHLEBS, NOTIFIED NURSE THERESA Result Comment: MORE RECENT SPECIMEN COLLECTED. eGFR Normal >60 [facility] Comment on above: Result Comment: Canc elled via OM: Order cancelled - Patient discharged Performed By: #### L 100.0100, L500.2500 ####[facility] [address] [place], [address] Order Comment: UTO X 2 PHLEBS, NOTIFIED NURSE THERESA Result Comment: MORE RECENT SPECIMEN COLLECTED. GAP Normal 5-15 [facility] Comment on above: Result Comment: Canc elled via OM: Order cancelled - Patient discharged Performed By: #### L 100.0100, L500.2500 ####[facility] [address] [place], [address] Order Comment: UTO X 2 PHLEBS, NOTIFIED NURSE THERESA Result Comment: MORE RECENT SPECIMEN COLLECTED. GLU Normal 70-99 [facility] Comment on above: Result Comment: Canc elled via OM: Order cancelled - Patient discharged Performed By: #### L 100.0100, L500.2500 ####[facility] [address] [place], [address] Order Comment: UTO X 2 PHLEBS, NOTIFIED NURSE THERESA Result Comment: MORE RECENT SPECIMEN COLLECTED. Potassium Normal 3.3-5.1 [facility] Comment on above: Result Comment: Canc elled via OM: Order cancelled - Patient discharged Performed By: #### L 100.0100, L500.2500 ####[facility] [address] [place], [address] Order Comment: UTO X 2 PHLEBS, NOTIFIED NURSE THERESA Result Comment: MORE RECENT SPECIMEN COLLECTED. Basic Metabolic Profile (BMP) Normal 133-145 [facility] Comment on above: Result Comment: Canc elled via OM: Order cancelled - Patient discharged Performed By: #### L 100.0100, L500.2500 ####[facility] [address] [place], [address] Order Comment: UTO X 2 PHLEBS, NOTIFIED NURSE THERESA Result Comment: MORE RECENT SPECIMEN COLLECTED. Bedside Glucoseon 08-04-2024 FINGERSTICK GLU 76 mg/dL Normal 74-106 [facility] Comment on above: Result Comment: LUIZA GEMENT OF PATIENT CARE PER NURSING PROTOCOL Performed By: #### L 501.080 ####[facility] [address] [place], [address] FINGERSTICK GLU 75 mg/dL Normal 74-106 [facility] Comment on above: Result Comment: LUIZA GEMENT OF PATIENT CARE PER NURSING PROTOCOL Performed By: #### L 501.080 ####[facility] [address] [place], [address] FINGERSTICK GLU < 10 Invalid Interpretation Code 74-106 [facility] Comment on above: Result Comment: Dr George mathis FollowedMANAGEMENT OF PATIENT CARE PER NURSING PROTOCOL Performed By: #### L 501.080 ####[facility] [address] [place], [address] FINGERSTICK GLU 14 mg/dL Invalid Interpretation Code [address] [place] [address] Comment on above: Result Comment: LUIZA GEMENT OF PATIENT CARE PER NURSING PROTOCOL Performed By: #### L 501.080 ####[facility] [address] [place], [address] FINGERSTICK GLU < 10 Invalid Interpretation Code 74-106 [facility] Comment on above: Result Comment: Dr George mathis FollowedMANAGEMENT OF PATIENT CARE PER NURSING PROTOCOL Performed By: #### L 501.080 ####[facility] [address] [place], [address] FINGERSTICK GLU 16 mg/dL Invalid Interpretation Code 74-106 [facility] Comment on above: Result Comment: LUIZA GEMENT OF PATIENT CARE PER NURSING PROTOCOL Performed By: #### L 501.080 ####[facility] [address] [place], [place], [address] Bilirubin, totalOrdered By: White on 08-04-2024 Bilirubin [Mass/Vol] 0.23 mg/dL 0.00-1.30 [facility] Bilirubin, total 0.23 mg/dL 0.00-1.30 [facility] Blood band neutrophil count as percentage of total leukocytesOrdered By: White on 08-04-2024 Band form neutrophils/100 WBC (Bld) 1 % 0-5 [facility] Blood band neutrophil count as percentage of total leukocytes 1 % 0-5 [facility] Blood eosinophils/100 leukoc ytesOrdered By: White on 08-04-2024 Eosinophils/100 WBC (Bld) 1 % 0-5 [facility] Blood lymphocytes/100 leukoc ytesOrdered By: White on 08-04-2024 Lymphocytes/100 WBC (Bld) 13 % Low 19-41 [facility] Blood metamyelocytes/100 massiel kocytesOrdered By: White on 08-04-2024 Metamyelocytes/100 WBC (Bld) 2 % High 0-1 [facility] Blood metamyelocytes/100 leukocytes 2 % 0-10 [facility] Blood monocytes/100 leukocyt esOrdered By: White on 08-04-2024 Monocytes/100 WBC (Bld) 2 % 0-10 [facility] Blood segmented neutrophils/ 100 leukocytesOrdered By: White on 08-04-2024 Segmented neutrophils/100 WBC (Bld) 81 % High 47-70 [facility] CBC W/Diff, Automatedon Absolute Lymph 1.24 X10 3/uL Normal 0.83-4.51 [facility] Comment on above: Performed By: #### L 100.0100 ####[facility] [address] [facility] [place], [address] Absolute Neut 7.9 X10 3/uL High 2.0-7.7 [facility] Comment on above: Performed By: #### L 100.0100 ####[facility] [address] [place], [address] PATH REV May foll Normal [facility] Comment on above: Performed By: #### L 100.0100 ####[facility] [address] [place], [address] Absolute Neut Normal 2.0-7.7 [facility] Comment on above: Result Comment: Canc elled via OM: Order cancelled - Patient discharged Performed By: #### L 100.0100, L500.2500 ####[facility] [address] [place], [address] Order Comment: UTO X 2 PHLEBS, NOTIFIED NURSE THERESA Result Comment: DUPL ICATE HCT Normal 37-47 [facility] Comment on above: Result Comment: Canc elled via OM: Order cancelled - Patient discharged Performed By: #### L 100.0100, L500.2500 ####[facility] [address] [place], [address] Order Comment: UTO X 2 PHLEBS, NOTIFIED NURSE THERESA Result Comment: DUPL ICATE HGB Normal 12.0-15.0 [facility] Comment on above: Result Comment: Canc elled via OM: Order cancelled - Patient discharged Performed By: #### L 100.0100, L500.2500 ####[facility] [address] [place], [address] Order Comment: UTO X 2 PHLEBS, NOTIFIED NURSE THERESA Result Comment: DUPL ICATE MCH Normal 27.0-32.0 [facility] Comment on above: Result Comment: Canc elled via OM: Order cancelled - Patient discharged Performed By: #### L 100.0100, L500.2500 ####[facility] [address] [place], [address] Order Comment: UTO X 2 PHLEBS, NOTIFIED NURSE THERESA Result Comment: DUPL ICATE MCHC Normal 32-36 [facility] Comment on above: Result Comment: Canc elled via OM: Order cancelled - Patient discharged Performed By: #### L 100.0100, L500.2500 ####[facility] [address] [place], [address] Order Comment: UTO X 2 PHLEBS, NOTIFIED NURSE THERESA Result Comment: DUPL ICATE MCV Normal 81-99 [facility] Comment on above: Result Comment: Canc elled via OM: Order cancelled - Patient discharged Performed By: #### L 100.0100, L500.2500 ####[facility] [address] [place], [place], [id number] Order Comment: UTO X 2 PHLEBS, NOTIFIED NURSE THERESA Result Comment: DUPL ICATE NEUT% Normal 47-70 [facility] Comment on above: Result Comment: Canc elled via OM: Order cancelled - Patient discharged Performed By: #### L 100.0100, L500.2500 ####[facility] [address] [place], [place], [id number] Order Comment: UTO X 2 PHLEBS, NOTIFIED NURSE THERESA Result Comment: DUPL ICATE PLT Normal 150-450 [facility] Comment on above: Result Comment: Canc elled via OM: Order cancelled - Patient discharged Performed By: #### L 100.0100, L500.2500 ####[facility] [address] [place], [address] Order Comment: UTO X 2 PHLEBS, NOTIFIED NURSE THERESA Result Comment: DUPL ICATE RBC Normal 4.2-5.4 [facility] Comment on above: Result Comment: Canc elled via OM: Order cancelled - Patient discharged Performed By: #### L 100.0100, L500.2500 ####[facility] [address] [place], [address] Order Comment: UTO X 2 PHLEBS, NOTIFIED NURSE THERESA Result Comment: DUPL ICATE RDW CV Normal 11.6-14.6 [facility] Comment on above: Result Comment: Canc elled via OM: Order cancelled - Patient discharged Performed By: #### L 100.0100, L500.2500 ####[facility] [address] [place], [place], [address] Order Comment: UTO X 2 PHLEBS, NOTIFIED NURSE THERESA Result Comment: DUPL ICATE RDW SD Normal 35.1-43.9 [facility] Comment on above: Result Comment: Canc elled via OM: Order cancelled - Patient discharged Performed By: #### L 100.0100, L500.2500 ####[facility] [address] [place], [address] Order Comment: UTO X 2 PHLEBS, NOTIFIED NURSE THERESA Result Comment: DUPL ICATE WBC Normal 4.4-11.0 [facility] Comment on above: Result Comment: Canc elled via OM: Order cancelled - Patient discharged Performed By: #### L 100.0100, L500.2500 ####[facility] [address] [place], [address] Order Comment: UTO X 2 PHLEBS, NOTIFIED NURSE THERESA Result Comment: DUPL ICATE Cells counted Molgen (Bld/Ti ss) [#]Ordered By: Ivone Buckner on 08-04-2024 Total cell count 100 MANUAL DIFF [facility] Comprehensive Metabolic Prof ilon 08-04-2024 Albumin [Mass/Vol] 2.1 g/dL Low 3.4-4.8 [facility] Comment on above: Performed By: #### L 500.4050 ####[facility] [address] [place], [address] Albumin/Globulin [Mass ratio] 0.7 {ratio} Low 0.9-2.4 [facility] Comment on above: Performed By: #### L 500.4050 ####[facility] [address] [place], [address] ALK PHOS 56 U/L Normal 35-104 [facility] Comment on above: Performed By: #### L 500.4050 ####[facility] [address] [place], [address] ALT [Catalytic activity/Vol] 7 U/L Normal <=34 [facility] Comment on above: Performed By: #### L 500.4050 ####[facility] [address] [place], [address] AST [Catalytic activity/Vol] 25 U/L Normal <=31 [facility] Comment on above: Performed By: #### L 500.4050 ####[facility] [address] [place], [address] Bilirubin [Mass/Vol] 0.23 mg/dL Normal 0.00-1.30 [facility] Comment on above: Performed By: #### L 500.4050 ####[facility] [address] [place], [address] BUN/CRE 39.2 RATIO High 10-20 [facility] Comment on above: Performed By: #### L 500.4050 ####[facility] [address] [place], [address] Calcium [Mass/Vol] 8.0 mg/dL Normal 7.6-11.0 [facility] Comment on above: Performed By: #### L 500.4050 ####[facility] [address] [place], [address] Chloride [Moles/Vol] 101 mmol/L Normal 98-108 [facility] Comment on above: Performed By: #### L 500.4050 ####[facility] [address] [place], [address] CO2 [Moles/Vol] 22.9 mmol/L Normal 21.0-32.0 [facility] Comment on above: Performed By: #### L 500.4050 ####[facility] [address] [place], [address] Creatinine [Mass/Vol] 1.41 mg/dL High 0.70-1.20 [facility] Comment on above: Performed By: #### L 500.4050 ####[facility] [address] [place], [address] ECRCL 30.04 ml/min Low 50-250 [facility] Comment on above: Performed By: #### L 500.4050 ####[facility] [address] [place], [address] GAP 9 Normal 5-15 [facility] Comment on above: Performed By: #### L 500.4050 ####[facility] [address] [place], [address] GFR/1.73 sq M.predicted among non-blacks MDRD (S/P/Bld) [Vol rate/Area] 42 mL/min/{1.73_m2} Low >60 [facility] Comment on above: Result Comment: mL/m in/1.73m2 CKD-EPI Creatinine Equation (2020) Performed By: #### L 500.4050 ####[facility] [address] [place], [address] Globulin (S) [Mass/Vol] 3.1 g/dL Normal 2.2-4.2 [facility] Comment on above: Performed By: #### L 500.4050 ####[facility] [address] [place], [address] Glucose [Mass/Vol] 153 mg/dL High 70-99 [facility] Comment on above: Performed By: #### L 500.4050 ####[facility] [address] [place], [address] Potassium [Moles/Vol] 4.7 mmol/L Normal 3.3-5.1 [facility] Comment on above: Performed By: #### L 500.4050 ####[facility] [address] [place], [address] Sodium [Moles/Vol] 134 mmol/L Normal 133-145 [facility] Comment on above: Performed By: #### L 500.4050 ####[facility] [address] [place], [address] T PROT 5.2 g/dL Low 5.9-8.4 [facility] Comment on above: Performed By: #### L 500.4050 ####[facility] [address] [place], [address] Urea nitrogen [Mass/Vol] 55 mg/dL High 4-19 [facility] Comment on above: Performed By: #### L 500.4050 ####[facility] [address] [place], [address] Erythrocyte morphology asses smentOrdered By: Ivone Buckner on 08-04-2024 RBC morphology finding Nom (Bld) N CYTIC NORMAL NORM C&C [facility] HH, Hemoglobin AND Hematocri ton 08-04-2024 Hematocrit (Bld) [Volume fraction] 27.1 % Low 37-47 [facility] Comment on above: Order Comment: Comme nts: 1-2 hours after PRBC completion. Performed By: #### L 100.0600 ####[facility] [address] [place], [address] Hemoglobin (Bld) [Mass/Vol] 8.6 g/dL Low 12.0-15.0 [facility] Comment on above: Order Comment: Comme nts: 1-2 hours after PRBC completion. Performed By: #### L 100.0600 ####[facility] [address] [place], [place], [id number] Hypochromatic red blood cell detectionOrdered By: Ivone Buckner on 08-04-2024 Hypochromia Ql (Bld) 1+ [facility] Hypochromia Ql (Bld)Ordered By: Ivone Buckner on 08-04-2024 Hypochromatic red blood cell detection 1+ [facility] L499.0042on 08-04-2024 Trop T High Sen 146 ng/L Invalid Interpretation Code <=14 [facility] Comment on above: Result Comment: Crit ical Result(s) Called to Ginette MEJIA ([facility]): Reyr:??Results read back by same. Performed By: #### L 499.0042 ####[facility] [address] [place], [place], [address] L501.4021on 08-04-2024 Trop T High Sen 152 ng/L Invalid Interpretation Code <=14 [facility] Comment on above: Result Comment: Crit ical Result(s) Called at:[id number] by: WALTER KENNEDY TO KIN??Results read back by same. Performed By: #### L 501.4021 ####[facility] [address] [place], [place], [address] Lymphocytes/100 WBC (Bld)Ord ered By: Ivone Buckner on 08-04-2024 Blood lymphocytes/100 leukocytes 13 % Low 19-41 [facility] No Panel InformationOrdered By: Ivone Dudley on 08-04-2024 152 ng/L High <14 [facility] 25 U/L <32 [facility] Pathologist review Horace (Unsp spec) [Interp]Ordered By: Ivone Buckner on 08-04-2024 Review by pathologist Karen paul [facility] Platelet estimateOrdered By: Ivone Dudley on 08-04-2024 Platelets LM Ql (Bld) ADEQUATE ADEQ [facility] Platelets LM Ql (Bld)Ordered By: Ivone Buckner on 08-04-2024 Platelet estimate ADEQUATE [facility] RBC morphology finding Nom ( Bld)Ordered By: Ivone Buckner on 08-04-2024 Erythrocyte morphology assessment N CYTIC NORMAL NORM C&C [facility] Review by pathologistOrdered By: Ivone Buckner on 08-04-2024 Pathologist review Horace (Unsp spec) [Interp] September foll [facility] Segmented neutrophils/100 WB C (Bld)Ordered By: Ivone Buckner on 08-04-2024 Blood segmented neutrophils/100 leukocytes 81 % High 47-70 [facility] Serum globulin measurementOr dered By: Ivone Buckner on 08-04-2024 Globulin (S) [Mass/Vol] 3.1 g/dL 2.2-4.2 [facility] Serum globulin measurement 3.1 g/dL 2.2-4.2 [facility] Serum or plasma alanine camargo otransferase (ALT) measurementOrdered By: Ivone Buckner on 08-04-2024 ALT [Catalytic activity/Vol] 7 U/L <35 [facility] Serum or plasma albumin megan urement (mass/volume)Ordered By: Ivone Buckner on 08-04-2024 Albumin [Mass/Vol] 2.1 g/dL Low 3.4-4.8 [facility] Serum or plasma albumin/glob ulin mass ratioOrdered By: Ivone Buckner 08-04-2024 Albumin/Globulin [Mass ratio] 0.7 {ratio} Low 0.9-2.4 [facility] Serum or plasma alkaline susan sphatase measurementOrdered By: Ivone Buckner on 08-04-2024 ALP [Catalytic activity/Vol] 56 U/L 35-104 [facility] Total cell countOrdered By: Ivone Buckner on 08-04-2024 Cells counted Molgen (Bld/Tiss) [#] 100 MANUAL DIFF [facility] Total proteinOrdered By: Aut umn Dudley on 08-04-2024 Protein [Mass/Vol] 5.2 g/dL Low 5.9-8.4 [facility] Total protein 5.2 g/dL Low 5.9-8.4 [facility] Troponin T.cardiac High sens itivity method [Mass/Vol]Ordered By: Ivone Buckner on 08-04-2024 Troponin T.cardiac [Mass/volume] in Serum or Plasma by High sensitivity method 146 ng/L High <14 [facility] Troponin T.cardiac [Mass/vol ume] in Serum or Plasma by High sensitivity methodOrdered By: Ivone Buckner on 08-04-2024 Troponin T.cardiac High sensitivity method [Mass/Vol] 146 ng/L High <14 [facility] Type AND Screenon 08-04-2024 ABO and Rh group Nom (Bld) Blood group O Rh(D) positive Normal [facility] Comment on above: Order Comment: CMV N EG? NNumber of units to transfuse: 1Is this product for anemia associated withhemoglobinopathy? NIs pt's Hgb is 10mmHg)? NIs this for PREOP anemia correction prior to anesthesia? NReason for Ordering Blood: ChronicIs there symptomatic anemia? NAre the blood/blood products to be transfused? YIs the patient having/had surgery? NWmari Roberts Performed By: #### B TS, BRC, [id number] ####[facility] [address] [place], [address] Basic Metabolic Profile (BMP )on 08-03-2024 BUN/CRE 31.7 RATIO High 10-20 [facility] Comment on above: Performed By: #### L 500.2500, L100.0100 ####[facility] [address] [place], [address] Calcium [Mass/Vol] 8.6 mg/dL Normal 7.6-11.0 [facility] Comment on above: Performed By: #### L 500.2500, L100.0100 ####[facility] [address] [place], [address] Chloride [Moles/Vol] 102 mmol/L Normal 98-108 [facility] Comment on above: Performed By: #### L 500.2500, L100.0100 ####[facility] [address] [place], [address] CO2 [Moles/Vol] 21.1 mmol/L Normal 21.0-32.0 [facility] Comment on above: Performed By: #### L 500.2500, L100.0100 ####[facility] [address] [place], [address] Creatinine [Mass/Vol] 1.24 mg/dL High 0.70-1.20 [facility] Comment on above: Performed By: #### L 500.2500, L100.0100 ####[facility] [address] [place], [address] ECRCL 34.16 ml/min Low 50-250 [facility] Comment on above: Performed By: #### L 500.2500, L100.0100 ####[facility] [address] [place], [address] GAP 13 Normal 5-15 [facility] Comment on above: Performed By: #### L 500.2500, L100.0100 ####[facility] [address] [place], [address] GFR/1.73 sq M.predicted among non-blacks MDRD (S/P/Bld) [Vol rate/Area] 49 mL/min/{1.73_m2} Low >60 [facility] Comment on above: Result Comment: mL/m in/1.73m2 CKD-EPI Creatinine Equation (2020) Performed By: #### L 500.2500, L100.0100 ####[facility] [address] [place], [address] Glucose [Mass/Vol] 65 mg/dL Low 70-99 [facility] Comment on above: Performed By: #### L 500.2500, L100.0100 ####[facility] [address] [place], [address] Potassium [Moles/Vol] 4.8 mmol/L Normal 3.3-5.1 [facility] Comment on above: Performed By: #### L 500.2500, L100.0100 ####[facility] [address] [place], [address] Sodium [Moles/Vol] 135 mmol/L Normal 133-145 [facility] Comment on above: Performed By: #### L 500.2500, L100.0100 ####[facility] [address] [place], [address] Urea nitrogen [Mass/Vol] 39 mg/dL High - [facility] Comment on above: Performed By: #### L 500.2500, L100.0100 ####[facility] [address] [place], [address] BUN Normal - [facility] Comment on above: Result Comment: Canc elled via OM: Order cancelled - Patient discharged Performed By: #### L 500.2500, L100.0100 ####[facility] [address] [place], [address] BUN/CRE Normal - [facility] Comment on above: Result Comment: Canc elled via OM: Order cancelled - Patient discharged Performed By: #### L 500.2500, L100.0100 ####[facility] [address] [place], [address] Calcium Normal 7.6-11.0 [facility] Comment on above: Result Comment: Canc elled via OM: Order cancelled - Patient discharged Performed By: #### L 500.2500, L100.0100 ####[facility] [address] [place], [address] CL Normal 98-107 [facility] Comment on above: Result Comment: Canc elled via OM: Order cancelled - Patient discharged Performed By: #### L 500.2500, L100.0100 ####[facility] [address] [place], [address] CO2 Normal 21.0-32.0 [facility] Comment on above: Result Comment: Canc elled via OM: Order cancelled - Patient discharged Performed By: #### L 500.2500, L100.0100 ####[facility] [address] [place], [address] CREAT,SERUM Normal 0.70-1.20 [facility] Comment on above: Result Comment: Canc elled via OM: Order cancelled - Patient discharged Performed By: #### L 500.2500, L100.0100 ####[facility] [address] [place], [address] eGFR Normal >60 [facility] Comment on above: Result Comment: Canc elled via OM: Order cancelled - Patient discharged Performed By: #### L 500.2500, L100.0100 ####[facility] [address] [place], [address] GAP Normal 5-15 [facility] Comment on above: Result Comment: Canc elled via OM: Order cancelled - Patient discharged Performed By: #### L 500.2500, L100.0100 ####[facility] [address] [place], [address] GLU Normal 70-99 [facility] Comment on above: Result Comment: Canc elled via OM: Order cancelled - Patient discharged Performed By: #### L 500.2500, L100.0100 ####[facility] [address] [place], [address] Potassium Normal 3.5-5.1 [facility] Comment on above: Result Comment: Canc elled via OM: Order cancelled - Patient discharged Performed By: #### L 500.2500, L100.0100 ####[facility] [address] [place], [address] Basic Metabolic Profile (BMP) Normal 136-145 [facility] Comment on above: Result Comment: Canc elled via OM: Order cancelled - Patient discharged Performed By: #### L 500.2500, L100.0100 ####[facility] [address] [place], [address] CBC W/Diff, Automatedon 03-0 -2024 Absolute Lymph 0.88 X10 3/uL Normal 0.83-4.51 [facility] Comment on above: Performed By: #### L 500.2500, L100.0100 ####[facility] [address] [place], [address] Absolute Neut 9.0 X10 3/uL High 2.0-7.7 [facility] Comment on above: Performed By: #### L 500.2500, L100.0100 ####[facility] [address] [place], [address] Basophils/100 WBC (Bld) 0.5 % Normal 0-1 [facility] Comment on above: Performed By: #### L 500.2500, L100.0100 ####[facility] [address] [place], [address] Eosinophils/100 WBC (Bld) 1.3 % Normal 0-5 [facility] Comment on above: Performed By: #### L 500.2500, L100.0100 ####[facility] [address] [place], [address] Erythrocyte distribution width (RBC) [Ratio] 17.3 % High 11.6-14.6 [facility] Comment on above: Performed By: #### L 500.2500, L100.0100 ####[facility] [address] [place], [address] Hematocrit (Bld) [Volume fraction] 27.9 % Low 37-47 [facility] Comment on above: Performed By: #### L 500.2500, L100.0100 ####[facility] [address] [place], [address] Hemoglobin (Bld) [Mass/Vol] 8.0 g/dL Low 12.0-15.0 [facility] Comment on above: Performed By: #### L 500.2500, L100.0100 ####[facility] [address] [place], [address] IG% 3.700 High 0.0-0.9 [facility] Comment on above: Result Comment: IG% - Immature Granulocytes (promyelocytes, myelocytes andmetamyelocytes) > 1% indicates that a LEFT SHIFT is Present. Performed By: #### L 500.2500, L100.0100 ####[facility] [address] [place], [address] Lymphocytes/100 WBC (Bld) 7.9 % Low 19-41 [facility] Comment on above: Performed By: #### L 500.2500, L100.0100 ####[facility] [address] [place], [address] MCH (RBC) [Entitic mass] 25.2 pg Low 27.0-32.0 [facility] Comment on above: Performed By: #### L 500.2500, L100.0100 ####[facility] [address] [place], [address] MCHC (RBC) [Mass/Vol] 28.7 g/dL Low 32-36 [facility] Comment on above: Performed By: #### L 500.2500, L100.0100 ####[facility] [address] [place], [address] MCV (RBC) [Entitic vol] 88.0 fL Normal 81-99 [facility] Comment on above: Performed By: #### L 500.2500, L100.0100 ####[facility] [address] [place], [address] Monocytes/100 WBC (Bld) 5.5 % Normal 0-10 [facility] Comment on above: Performed By: #### L 500.2500, L100.0100 ####[facility] [address] [place], [address] Neutrophils/100 WBC (Bld) 81.1 % High 47-70 [facility] Comment on above: Performed By: #### L 500.2500, L100.0100 ####[facility] [address] [place], [address] Nucleated RBC (Bld) [#/Vol] 0 10*3/uL Normal 0-5 [facility] Comment on above: Performed By: #### L 500.2500, L100.0100 ####[facility] [address] [place], [address] Platelet mean volume (Bld) [Entitic vol] 9.2 fL Normal 6.2-12.0 [facility] Comment on above: Performed By: #### L 500.2500, L100.0100 ####[facility] [address] [place], [address] Platelets (Bld) [#/Vol] 265 10*3/uL Normal 150-450 [facility] Comment on above: Performed By: #### L 500.2500, L100.0100 ####[facility] [address] [place], [address] RBC (Bld) [#/Vol] 3.17 10*6/uL Low 4.2-5.4 [facility] Comment on above: Performed By: #### L 500.2500, L100.0100 ####[facility] [address] [place], [address] RDW SD 55.2 fl High 35.1-43.9 [facility] Comment on above: Performed By: #### L 500.2500, L100.0100 ####[facility] [address] [place], [address] WBC (Bld) [#/Vol] 11.1 10*3/uL High 4.4-11.0 [facility] Comment on above: Performed By: #### L 500.2500, L100.0100 ####[facility] [address] [place], [address] Absolute Neut Normal 2.0-7.7 [facility] Comment on above: Result Comment: Canc elled via OM: Order cancelled - Patient discharged Performed By: #### L 500.2500, L100.0100 ####[facility] [address] [place], [address] HCT Normal 37-47 [facility] Comment on above: Result Comment: Canc elled via OM: Order cancelled - Patient discharged Performed By: #### L 500.2500, L100.0100 ####[facility] [address] [place], [address] HGB Normal 12.0-15.0 [facility] Comment on above: Result Comment: Canc elled via OM: Order cancelled - Patient discharged Performed By: #### L 500.2500, L100.0100 ####[facility] [address] [place], [address] MCH Normal 27.0-32.0 [facility] Comment on above: Result Comment: Canc elled via OM: Order cancelled - Patient discharged Performed By: #### L 500.2500, L100.0100 ####[facility] [address] [place], [address] MCHC Normal 32-36 [facility] Comment on above: Result Comment: Canc elled via OM: Order cancelled - Patient discharged Performed By: #### L 500.2500, L100.0100 ####[facility] [address] [place], [address] MCV Normal 81-99 [facility] Comment on above: Result Comment: Canc elled via OM: Order cancelled - Patient discharged Performed By: #### L 500.2500, L100.0100 ####[facility] [address] [place], [address] NEUT% Normal 47-70 [facility] Comment on above: Result Comment: Canc elled via OM: Order cancelled - Patient discharged Performed By: #### L 500.2500, L100.0100 ####[facility] [address] [place], [address] PLT Normal 150-450 [facility] Comment on above: Result Comment: Canc elled via OM: Order cancelled - Patient discharged Performed By: #### L 500.2500, L100.0100 ####[facility] [address] [place], [address] RBC Normal 4.2-5.4 [facility] Comment on above: Result Comment: Canc elled via OM: Order cancelled - Patient discharged Performed By: #### L 500.2500, L100.0100 ####[facility] [address] [place], [address] RDW CV Normal 11.6-14.6 [facility] Comment on above: Result Comment: Canc elled via OM: Order cancelled - Patient discharged Performed By: #### L 500.2500, L100.0100 ####[facility] [address] [place], [address] RDW SD Normal 35.1-43.9 [facility] Comment on above: Result Comment: Canc elled via OM: Order cancelled - Patient discharged Performed By: #### L 500.2500, L100.0100 ####[facility] [address] [place], [address] WBC Normal 4.4-11.0 [facility] Comment on above: Result Comment: Canc elled via OM: Order cancelled - Patient discharged Performed By: #### L 500.2500, L100.0100 ####[facility] [address] [place], [address] EGD Reporton 03-08-2025 EGD Report Normal [facility] MR/POSTOP.ANEon 08-03-2024 MR/POSTOP.ANE Normal [facility] MR/[id number] 08-03-2024 MR/POSTOPAN2 Normal [facility] Basic Metabolic Profile (BMP )on 08-02-2024 BUN/CRE 33.3 RATIO High 10-20 [facility] Comment on above: Performed By: #### L 100.0500, L500.2500 ####[facility] [address] [place], [address] Calcium [Mass/Vol] 8.9 mg/dL Normal 7.6-11.0 [facility] Comment on above: Performed By: #### L 100.0500, L500.2500 ####[facility] [address] [place], [address] Chloride [Moles/Vol] 101 mmol/L Normal 98-108 [facility] Comment on above: Performed By: #### L 100.0500, L500.2500 ####[facility] [address] [place], [address] CO2 [Moles/Vol] 23.8 mmol/L Normal 21.0-32.0 [facility] Comment on above: Performed By: #### L 100.0500, L500.2500 ####[facility] [address] [place], [place], [address] Creatinine [Mass/Vol] 1.37 mg/dL High 0.70-1.20 [facility] Comment on above: Performed By: #### L 100.0500, L500.2500 ####[facility] [address] [place], [address] ECRCL 30.92 ml/min Low 50-250 [facility] Comment on above: Performed By: #### L 100.0500, L500.2500 ####[facility] [address] [place], [address] GAP 9 Normal 5-15 [facility] Comment on above: Performed By: #### L 100.0500, L500.2500 ####[facility] [address] [place], [address] GFR/1.73 sq M.predicted among non-blacks MDRD (S/P/Bld) [Vol rate/Area] 44 mL/min/{1.73_m2} Low >60 [facility] Comment on above: Result Comment: mL/m in/1.73m2 CKD-EPI Creatinine Equation (2020) Performed By: #### L 100.0500, L500.2500 ####[facility] [address] [place], [address] Glucose [Mass/Vol] 54 mg/dL Low 70-99 [facility] Comment on above: Performed By: #### L 100.0500, L500.2500 ####[facility] [address] [place], [address] Potassium [Moles/Vol] 5.3 mmol/L High 3.3-5.1 [facility] Comment on above: Performed By: #### L 100.0500, L500.2500 ####[facility] [address] [place], [address] Sodium [Moles/Vol] 134 mmol/L Normal 133-145 [facility] Comment on above: Performed By: #### L 100.0500, L500.2500 ####[facility] [address] [place], [address] Urea nitrogen [Mass/Vol] 46 mg/dL High 4-19 [facility] Comment on above: Performed By: #### L 100.0500, L500.2500 ####[facility] [address] [place], [address] BUN Normal 4-19 [facility] Comment on above: Result Comment: Canc elled via OM: Order cancelled - Patient discharged Performed By: #### L 500.2500, L100.0100 ####[facility] [address] [place], [address] BUN/CRE Normal 10-20 [facility] Comment on above: Result Comment: Canc elled via OM: Order cancelled - Patient discharged Performed By: #### L 500.2500, L100.0100 ####[facility] [address] [place], [address] Calcium Normal 7.6-11.0 [facility] Comment on above: Result Comment: Canc elled via OM: Order cancelled - Patient discharged Performed By: #### L 500.2500, L100.0100 ####[facility] [address] [place], [address] CL Normal 98-107 [facility] Comment on above: Result Comment: Canc elled via OM: Order cancelled - Patient discharged Performed By: #### L 500.2500, L100.0100 ####[facility] [address] [place], [address] CO2 Normal 21.0-32.0 [facility] Comment on above: Result Comment: Canc elled via OM: Order cancelled - Patient discharged Performed By: #### L 500.2500, L100.0100 ####[facility] [address] [place], [address] CREAT,SERUM Normal 0.70-1.20 [facility] Comment on above: Result Comment: Canc elled via OM: Order cancelled - Patient discharged Performed By: #### L 500.2500, L100.0100 ####[facility] [address] [place], [address] eGFR Normal >60 [facility] Comment on above: Result Comment: Canc elled via OM: Order cancelled - Patient discharged Performed By: #### L 500.2500, L100.0100 ####[facility] [facility] [address] [place], [address] GAP Normal 5-15 [facility] Comment on above: Result Comment: Canc elled via OM: Order cancelled - Patient discharged Performed By: #### L 500.2500, L100.0100 ####[facility] [address] [place], [address] GLU Normal 70-99 [facility] Comment on above: Result Comment: Canc elled via OM: Order cancelled - Patient discharged Performed By: #### L 500.2500, L100.0100 ####[facility] [address] [place], [address] Potassium Normal 3.5-5.1 [facility] Comment on above: Result Comment: Canc elled via OM: Order cancelled - Patient discharged Performed By: #### L 500.2500, L100.0100 ####[facility] [address] [place], [address] Basic Metabolic Profile (BMP) Normal 136-145 [facility] Comment on above: Result Comment: Canc elled via OM: Order cancelled - Patient discharged Performed By: #### L 500.2500, L100.0100 ####[facility] [address] [place], [address] CBC W/Diff, Automatedon 03-0 Absolute Neut Normal 2.0-7.7 [facility] Comment on above: Result Comment: Canc elled via OM: Order cancelled - Patient discharged Performed By: #### L 500.2500, L100.0100 ####[facility] [address] [place], [address] HCT Normal 37-47 [facility] Comment on above: Result Comment: Canc elled via OM: Order cancelled - Patient discharged Performed By: #### L 500.2500, L100.0100 ####[facility] [address] [place], [address] HGB Normal 12.0-15.0 [facility] Comment on above: Result Comment: Canc elled via OM: Order cancelled - Patient discharged Performed By: #### L 500.2500, L100.0100 ####[facility] [address] [place], [address] MCH Normal 27.0-32.0 [facility] Comment on above: Result Comment: Canc elled via OM: Order cancelled - Patient discharged Performed By: #### L 500.2500, L100.0100 ####[facility] [address] [place], [address] MCHC Normal 32-36 [facility] Comment on above: Result Comment: Canc elled via OM: Order cancelled - Patient discharged Performed By: #### L 500.2500, L100.0100 ####[facility] [address] [place], [address] MCV Normal 81-99 [facility] Comment on above: Result Comment: Canc elled via OM: Order cancelled - Patient discharged Performed By: #### L 500.2500, L100.0100 ####[facility] [address] [place], [address] NEUT% Normal 47-70 [facility] Comment on above: Result Comment: Canc elled via OM: Order cancelled - Patient discharged Performed By: #### L 500.2500, L100.0100 ####[facility] [address] [place], [address] PLT Normal 150-450 [facility] Comment on above: Result Comment: Canc elled via OM: Order cancelled - Patient discharged Performed By: #### L 500.2500, L100.0100 ####[facility] [address] [place], [address] RBC Normal 4.2-5.4 [facility] Comment on above: Result Comment: Canc elled via OM: Order cancelled - Patient discharged Performed By: #### L 500.2500, L100.0100 ####[facility] [address] [place], [address] RDW CV Normal 11.6-14.6 [facility] Comment on above: Result Comment: Canc elled via OM: Order cancelled - Patient discharged Performed By: #### L 500.2500, L100.0100 ####[facility] [address] [place], [address] RDW SD Normal 35.1-43.9 [facility] Comment on above: Result Comment: Canc elled via OM: Order cancelled - Patient discharged Performed By: #### L 500.2500, L100.0100 ####[facility] [address] [place], [address] WBC Normal 4.4-11.0 [facility] Comment on above: Result Comment: Canc elled via OM: Order cancelled - Patient discharged Performed By: #### L 500.2500, L100.0100 ####[facility] [address] [place], [address] CBC-Complete Blood Cnt No Di ffon 08-02-2024 Erythrocyte distribution width (RBC) [Ratio] 17.5 % High 11.6-14.6 [facility] Comment on above: Performed By: #### L 100.0500, L500.2500 ####[facility] [address] [place], [address] Hematocrit (Bld) [Volume fraction] 23.8 % Low 37-47 [facility] Comment on above: Performed By: #### L 100.0500, L500.2500 ####[facility] [address] [place], [address] Hemoglobin (Bld) [Mass/Vol] 7.1 g/dL Low 12.0-15.0 [facility] Comment on above: Performed By: #### L 100.0500, L500.2500 ####[facility] [address] [place], [address] MCH (RBC) [Entitic mass] 25.8 pg Low 27.0-32.0 [facility] Comment on above: Performed By: #### L 100.0500, L500.2500 ####[facility] [address] [place], [address] MCHC (RBC) [Mass/Vol] 29.8 g/dL Low 32-36 [facility] Comment on above: Performed By: #### L 100.0500, L500.2500 ####[facility] [address] [place], [address] MCV (RBC) [Entitic vol] 86.5 fL Normal 81-99 [facility] Comment on above: Performed By: #### L 100.0500, L500.2500 ####[facility] [address] [place], [address] Platelet mean volume (Bld) [Entitic vol] 9.6 fL Normal 6.2-12.0 [facility] Comment on above: Performed By: #### L 100.0500, L500.2500 ####[facility] [address] [place], [address] Platelets (Bld) [#/Vol] 284 10*3/uL Normal 150-450 [facility] Comment on above: Performed By: #### L 100.0500, L500.2500 ####[facility] [address] [place], [address] RBC (Bld) [#/Vol] 2.75 10*6/uL Low 4.2-5.4 [facility] Comment on above: Performed By: #### L 100.0500, L500.2500 ####[facility] [address] [place], [address] RDW SD 55.0 fl High 35.1-43.9 [facility] Comment on above: Performed By: #### L 100.0500, L500.2500 ####[facility] [address] [place], [address] WBC (Bld) [#/Vol] 11.7 10*3/uL High 4.4-11.0 [facility] Comment on above: Performed By: #### L 100.0500, L500.2500 ####[facility] [address] [place], [address] HH, Hemoglobin AND Hematocri ton 08-02-2024 Hematocrit (Bld) [Volume fraction] 26.9 % Low 37-47 [facility] Comment on above: Performed By: #### L 100.0600 ####[facility] [address] [place], [address] Hemoglobin (Bld) [Mass/Vol] 7.9 g/dL Low 12.0-15.0 [facility] Comment on above: Performed By: #### L 100.0600 ####[facility] [address] [place], [address] ,Urineon 08-02-2024 Beta HCG ( test) Ql (U) Negative Normal [facility] Comment on above: Order Comment: Anyon chacho has had a period within 12 [id number] Result Comment: Very dilute urine specimens, as indicated by a low specificgravity, may not contain it sales representative levels of hCG.If is still suspected, a first morning urinespecimen should be collected 48 hours later and tested. Performed By: #### L 400.7600 ####[facility] [address] [place], [address] Urine testOrdered By: Nick Gallegos on 08-02-2024 HCG ( test) Ql (U) Negative [facility] Urine test Negative [facility] Basic Metabolic Profile (BMP )on 08-01-2024 BUN Normal 4-19 [facility] Comment on above: Result Comment: @CAN CELED Performed By: #### L 500.2500 ####[facility] [address] [place], [address] BUN/CRE Normal 10-20 [facility] Comment on above: Result Comment: @CAN CELED Performed By: #### L 500.2500 ####[facility] [address] [place], [address] Calcium Normal 7.6-11.0 [facility] Comment on above: Result Comment: @CAN CELED Performed By: #### L 500.2500 ####[facility] [address] [place], [address] CL Normal 98-108 [facility] Comment on above: Result Comment: @CAN CELED Performed By: #### L 500.2500 ####[facility] [address] [place], [address] CO2 Normal 21.0-32.0 [facility] Comment on above: Result Comment: @CAN CELED Performed By: #### L 500.2500 ####[facility] [address] [place], [address] CREAT,SERUM Normal 0.70-1.20 [facility] Comment on above: Result Comment: @CAN CELED Performed By: #### L 500.2500 ####[facility] [address] [place], [address] eGFR Normal >60 [facility] Comment on above: Result Comment: @CAN CELED Performed By: #### L 500.2500 ####[facility] [address] [place], [address] GAP Normal 5-15 [facility] Comment on above: Result Comment: @CAN CELED Performed By: #### L 500.2500 ####[facility] [address] [place], [address] GLU Normal 70-99 [facility] Comment on above: Result Comment: @CAN CELED Performed By: #### L 500.2500 ####[facility] [address] [place], [address] Potassium Normal 3.3-5.1 [facility] Comment on above: Result Comment: @CAN CELED Performed By: #### L 500.2500 ####[facility] [address] [place], [address] Basic Metabolic Profile (BMP) Normal 133-145 [facility] Comment on above: Result Comment: @CAN CELED Performed By: #### L 500.2500 ####[facility] [address] [place], [address] BUN/CRE 34.4 RATIO High 10-20 [facility] Comment on above: Performed By: #### L 500.2500, L100.0500 ####[facility] [address] [place], [address] Calcium [Mass/Vol] 8.8 mg/dL Normal 7.6-11.0 [facility] Comment on above: Performed By: #### L 500.2500, L100.0500 ####[facility] [address] [place], [address] Chloride [Moles/Vol] 97 mmol/L Low 98-108 [facility] Comment on above: Performed By: #### L 500.2500, L100.0500 ####[facility] [address] [place], [address] CO2 [Moles/Vol] 18.2 mmol/L Low 21.0-32.0 [facility] Comment on above: Performed By: #### L 500.2500, L100.0500 ####[facility] [address] [place], [address] Creatinine [Mass/Vol] 1.97 mg/dL High 0.70-1.20 [facility] Comment on above: Performed By: #### L 500.2500, L100.0500 ####[facility] [address] [place], [address] ECRCL 21.83 ml/min Low 50-250 [facility] Comment on above: Performed By: #### L 500.2500, L100.0500 ####[facility] [address] [place], [address] GAP 13 Normal 5-15 [facility] Comment on above: Performed By: #### L 500.2500, L100.0500 ####[facility] [address] [place], [address] GFR/1.73 sq M.predicted among non-blacks MDRD (S/P/Bld) [Vol rate/Area] 28 mL/min/{1.73_m2} Low >60 [facility] Comment on above: Result Comment: mL/m in/1.73m2 CKD-EPI Creatinine Equation (2020) Performed By: #### L 500.2500, L100.0500 ####[facility] [address] [place], [address] Glucose [Mass/Vol] 75 mg/dL Normal 70-99 [facility] Comment on above: Performed By: #### L 500.2500, L100.0500 ####[facility] [address] [place], [address] Potassium [Moles/Vol] 6.4 mmol/L Invalid Interpretation Code 3.3-5.1 [facility] Comment on above: Result Comment: Crit ical Result(s) Called at:0630 by:WALTER CARDOSO??Results read back by same. Performed By: #### L 500.2500, L100.0500 ####[facility] [address] [place], [address] Sodium [Moles/Vol] 128 mmol/L Low 133-145 [facility] Comment on above: Performed By: #### L 500.2500, L100.0500 ####[facility] [address] [place], [address] Urea nitrogen [Mass/Vol] 68 mg/dL High 4-19 [facility] Comment on above: Performed By: #### L 500.2500, L100.0500 ####[facility] [address] [place], [address] BUN Normal 4-19 [facility] Comment on above: Result Comment: Canc elled via OM: Order cancelled - Patient discharged Performed By: #### L 500.2500, L100.0100 ####[facility] [address] [place], [address] BUN/CRE Normal 10-20 [facility] Comment on above: Result Comment: Canc elled via OM: Order cancelled - Patient discharged Performed By: #### L 500.2500, L100.0100 ####[facility] [address] [place], [address] Calcium Normal 7.6-11.0 [facility] Comment on above: Result Comment: Canc elled via OM: Order cancelled - Patient discharged Performed By: #### L 500.2500, L100.0100 ####[facility] [address] [place], [address] CL Normal 98-107 [facility] Comment on above: Result Comment: Canc elled via OM: Order cancelled - Patient discharged Performed By: #### L 500.2500, L100.0100 ####[facility] [address] [place], [address] CO2 Normal 21.0-32.0 [facility] Comment on above: Result Comment: Canc elled via OM: Order cancelled - Patient discharged Performed By: #### L 500.2500, L100.0100 ####[facility] [address] [place], [address] CREAT,SERUM Normal 0.70-1.20 [facility] Comment on above: Result Comment: Canc elled via OM: Order cancelled - Patient discharged Performed By: #### L 500.2500, L100.0100 ####[facility] [address] [place], [address] eGFR Normal >60 [facility] Comment on above: Result Comment: Canc elled via OM: Order cancelled - Patient discharged Performed By: #### L 500.2500, L100.0100 ####[facility] [address] [place], [address] GAP Normal 5-15 [facility] Comment on above: Result Comment: Canc elled via OM: Order cancelled - Patient discharged Performed By: #### L 500.2500, L100.0100 ####[facility] [address] [place], [address] GLU Normal 70-99 [facility] Comment on above: Result Comment: Canc elled via OM: Order cancelled - Patient discharged Performed By: #### L 500.2500, L100.0100 ####[facility] [address] [place], [address] Potassium Normal 3.5-5.1 [facility] Comment on above: Result Comment: Canc elled via OM: Order cancelled - Patient discharged Performed By: #### L 500.2500, L100.0100 ####[facility] [address] [place], [address] Basic Metabolic Profile (BMP) Normal 136-145 [facility] Comment on above: Result Comment: Canc elled via OM: Order cancelled - Patient discharged Performed By: #### L 500.2500, L100.0100 ####[facility] [address] [place], [address] CBC W/Diff, Automatedon 03-0 -2024 Absolute Neut Normal 2.0-7.7 [facility] Comment on above: Result Comment: Canc elled via OM: Order cancelled - Patient discharged Performed By: #### L 500.2500, L100.0100 ####[facility] [address] [place], [address] HCT Normal 37-47 [facility] Comment on above: Result Comment: Canc elled via OM: Order cancelled - Patient discharged Performed By: #### L 500.2500, L100.0100 ####[facility] [address] [place], [address] HGB Normal 12.0-15.0 [facility] Comment on above: Result Comment: Canc elled via OM: Order cancelled - Patient discharged Performed By: #### L 500.2500, L100.0100 ####[facility] [address] [place], [address] MCH Normal 27.0-32.0 [facility] Comment on above: Result Comment: Canc elled via OM: Order cancelled - Patient discharged Performed By: #### L 500.2500, L100.0100 ####[facility] [address] [place], [address] MCHC Normal 32-36 [facility] Comment on above: Result Comment: Canc elled via OM: Order cancelled - Patient discharged Performed By: #### L 500.2500, L100.0100 ####[facility] [address] [place], [address] MCV Normal 81-99 [facility] Comment on above: Result Comment: Canc elled via OM: Order cancelled - Patient discharged Performed By: #### L 500.2500, L100.0100 ####[facility] [address] [place], [address] NEUT% Normal 47-70 [facility] Comment on above: Result Comment: Canc elled via OM: Order cancelled - Patient discharged Performed By: #### L 500.2500, L100.0100 ####[facility] [address] [place], [address] PLT Normal 150-450 [facility] Comment on above: Result Comment: Canc elled via OM: Order cancelled - Patient discharged Performed By: #### L 500.2500, L100.0100 ####[facility] [address] [place], [address] RBC Normal 4.2-5.4 [facility] Comment on above: Result Comment: Canc elled via OM: Order cancelled - Patient discharged Performed By: #### L 500.2500, L100.0100 ####[facility] [address] [place], [address] RDW CV Normal 11.6-14.6 [facility] Comment on above: Result Comment: Canc elled via OM: Order cancelled - Patient discharged Performed By: #### L 500.2500, L100.0100 ####[facility] [address] [place], [address] RDW SD Normal 35.1-43.9 [facility] Comment on above: Result Comment: Canc elled via OM: Order cancelled - Patient discharged Performed By: #### L 500.2500, L100.0100 ####[facility] [address] [place], [address] WBC Normal 4.4-11.0 [facility] Comment on above: Result Comment: Canc elled via OM: Order cancelled - Patient discharged Performed By: #### L 500.2500, L100.0100 ####[facility] [address] [place], [address] CBC-Complete Blood Cnt No Di ffon 08-01-2024 Erythrocyte distribution width (RBC) [Ratio] 17.6 % High 11.6-14.6 [facility] Comment on above: Performed By: #### L 500.2500, L100.0500 ####[facility] [address] [place], [address] Hematocrit (Bld) [Volume fraction] 27.2 % Low 37-47 [facility] Comment on above: Performed By: #### L 500.2500, L100.0500 ####[facility] [address] [place], [address] Hemoglobin (Bld) [Mass/Vol] 8.1 g/dL Low 12.0-15.0 [facility] Comment on above: Performed By: #### L 500.2500, L100.0500 ####[facility] [address] [place], [address] MCH (RBC) [Entitic mass] 26.0 pg Low 27.0-32.0 [facility] Comment on above: Performed By: #### L 500.2500, L100.0500 ####[facility] [address] [place], [address] MCHC (RBC) [Mass/Vol] 29.8 g/dL Low 32-36 [facility] Comment on above: Performed By: #### L 500.2500, L100.0500 ####[facility] [address] [place], [address] MCV (RBC) [Entitic vol] 87.5 fL Normal 81-99 [facility] Comment on above: Performed By: #### L 500.2500, L100.0500 ####[facility] [address] [place], [address] Platelet mean volume (Bld) [Entitic vol] 9.3 fL Normal 6.2-12.0 [facility] Comment on above: Performed By: #### L 500.2500, L100.0500 ####[facility] [address] [place], [address] Platelets (Bld) [#/Vol] 230 10*3/uL Normal 150-450 [facility] Comment on above: Performed By: #### L 500.2500, L100.0500 ####[facility] [address] [place], [address] RBC (Bld) [#/Vol] 3.11 10*6/uL Low 4.2-5.4 [facility] Comment on above: Performed By: #### L 500.2500, L100.0500 ####[facility] [address] [place], [address] RDW SD 56.1 fl High 35.1-43.9 [facility] Comment on above: Performed By: #### L 500.2500, L100.0500 ####[facility] [address] [place], [address] WBC (Bld) [#/Vol] 17.7 10*3/uL High 4.4-11.0 [facility] Comment on above: Performed By: #### L 500.2500, L100.0500 ####[facility] [address] [place], [address] Consultation - Nephrologyon 08-01-2024 Consultation - Nephrology Normal [facility] MR/CON.PCM.GIon 08-01-2024 MR/CON.PCM.GI Normal [facility] Abdomen/Pelvis W IV Cont ONL Yon 07-31-2024 Abdomen/Pelvis W IV Cont ONLY Normal [facility] Activated partial thrombopla stin time (aPTT) in platelet poor plasma by coagulation aOrdered By: Noah Avery on 07-31-2024 aPTT Coag (PPP) [Time] 42.1 s High 24.1-36.2 [facility] [id number] 07-31-2024 ANTIBODY ID Normal [facility] Comment on above: Order Comment: HGI Result Comment: CFYA Performed By: #### B KENDRA GALINDO, [id number] ####[facility] [address] [place], [address] BRCon 07-31-2024 RC Normal [facility] Comment on above: Result Comment: [id number] ON RC XM [id number] ON RC XM COMPATIBLE Performed By: #### B MATEO, [facility], [id number] ####[facility] [address] [place], [address] Basic Metabolic Profile (BMP )on 07-31-2024 BUN Normal 4-19 [facility] Comment on above: Result Comment: Canc elled via OM: Order cancelled - Patient discharged Performed By: #### L 100.0100, L500.2500 ####[facility] [address] [place], [address] BUN/CRE Normal 10-20 [facility] Comment on above: Result Comment: Canc elled via OM: Order cancelled - Patient discharged Performed By: #### L 100.0100, L500.2500 ####[facility] [address] [place], [address] Calcium Normal 7.6-11.0 [facility] Comment on above: Result Comment: Canc elled via OM: Order cancelled - Patient discharged Performed By: #### L 100.0100, L500.2500 ####[facility] [address] [place], [address] CL Normal 98-107 [facility] Comment on above: Result Comment: Canc elled via OM: Order cancelled - Patient discharged Performed By: #### L 100.0100, L500.2500 ####[facility] [address] [place], [address] CO2 Normal 21.0-32.0 [facility] Comment on above: Result Comment: Canc elled via OM: Order cancelled - Patient discharged Performed By: #### L 100.0100, L500.2500 ####[facility] [address] [place], [address] CREAT,SERUM Normal 0.70-1.20 [facility] Comment on above: Result Comment: Canc elled via OM: Order cancelled - Patient discharged Performed By: #### L 100.0100, L500.2500 ####[facility] [address] [place], [address] eGFR Normal >60 [facility] Comment on above: Result Comment: Canc elled via OM: Order cancelled - Patient discharged Performed By: #### L 100.0100, L500.2500 ####[facility] [address] [place], [address] GAP Normal 5-15 [facility] Comment on above: Result Comment: Canc elled via OM: Order cancelled - Patient discharged Performed By: #### L 100.0100, L500.2500 ####[facility] [address] [place], [address] GLU Normal 70-99 [facility] Comment on above: Result Comment: Canc elled via OM: Order cancelled - Patient discharged Performed By: #### L 100.0100, L500.2500 ####[facility] [address] [place], [address] Potassium Normal 3.5-5.1 [facility] Comment on above: Result Comment: Canc elled via OM: Order cancelled - Patient discharged Performed By: #### L 100.0100, L500.2500 ####[facility] [address] [place], [address] Basic Metabolic Profile (BMP) Normal 136-145 [facility] Comment on above: Result Comment: Canc elled via OM: Order cancelled - Patient discharged Performed By: #### L 100.0100, L500.2500 ####[facility] [address] [place], [address] CBC W/Diff, Automatedon 03-0 5-2024 Absolute Lymph 0.40 X10 3/uL Low 0.83-4.51 [facility] Comment on above: Performed By: #### L 100.0100, L501.2450, L500.4050 ####[facility] [address] [place], [address] Absolute Neut 9.3 X10 3/uL High 2.0-7.7 [facility] Comment on above: Performed By: #### L 100.0100, L501.2450, L500.4050 ####[facility] [address] [place], [address] Basophils/100 WBC (Bld) 0.3 % Normal 0-1 [facility] Comment on above: Performed By: #### L 100.0100, L501.2450, L500.4050 ####[facility] [address] [place], [address] Eosinophils/100 WBC (Bld) 0.5 % Normal 0-5 [facility] Comment on above: Performed By: #### L 100.0100, L501.2450, L500.4050 ####[facility] [address] [place], [address] Erythrocyte distribution width (RBC) [Ratio] 17.3 % High 11.6-14.6 [facility] Comment on above: Performed By: #### L 100.0100, L501.2450, L500.4050 ####[facility] [address] [place], [address] Hematocrit (Bld) [Volume fraction] 25.7 % Low 37-47 [facility] Comment on above: Performed By: #### L 100.0100, L501.2450, L500.4050 ####[facility] [address] [place], [address] Hemoglobin (Bld) [Mass/Vol] 7.7 g/dL Low 12.0-15.0 [facility] Comment on above: Performed By: #### L 100.0100, L501.2450, L500.4050 ####[facility] [address] [place], [address] IG% 3.200 High 0.0-0.9 [facility] Comment on above: Result Comment: IG% - Immature Granulocytes (promyelocytes, myelocytes andmetamyelocytes) > 1% indicates that a LEFT SHIFT is Present. Performed By: #### L 100.0100, L501.2450, L500.4050 ####[facility] [address] [place], [address] Lymphocytes/100 WBC (Bld) 3.7 % Low 19-41 [facility] Comment on above: Performed By: #### L 100.0100, L501.2450, L500.4050 ####[facility] [address] [place], [address] MCH (RBC) [Entitic mass] 25.7 pg Low 27.0-32.0 [facility] Comment on above: Performed By: #### L 100.0100, L501.2450, L500.4050 ####[facility] [address] [place], [address] MCHC (RBC) [Mass/Vol] 30.0 g/dL Low 32-36 [facility] Comment on above: Performed By: #### L 100.0100, L501.2450, L500.4050 ####[facility] [address] [place], [address] MCV (RBC) [Entitic vol] 85.7 fL Normal 81-99 [facility] Comment on above: Performed By: #### L 100.0100, L501.2450, L500.4050 ####[facility] [address] [place], [address] Monocytes/100 WBC (Bld) 5.8 % Normal 0-10 [facility] Comment on above: Performed By: #### L 100.0100, L501.2450, L500.4050 ####[facility] [address] [place], [address] Neutrophils/100 WBC (Bld) 86.5 % High 47-70 [facility] Comment on above: Performed By: #### L 100.0100, L501.2450, L500.4050 ####[facility] [address] [place], [address] Nucleated RBC (Bld) [#/Vol] 0 10*3/uL Normal 0-5 [facility] Comment on above: Performed By: #### L 100.0100, L501.2450, L500.4050 ####[facility] [address] [place], [address] Platelet mean volume (Bld) [Entitic vol] 9.7 fL Normal 6.2-12.0 [facility] Comment on above: Performed By: #### L 100.0100, L501.2450, L500.4050 ####[facility] [address] [place], [address] Platelets (Bld) [#/Vol] 169 10*3/uL Normal 150-450 [facility] Comment on above: Performed By: #### L 100.0100, L501.2450, L500.4050 ####[facility] [address] [place], [address] RBC (Bld) [#/Vol] 3.00 10*6/uL Low 4.2-5.4 [facility] Comment on above: Performed By: #### L 100.0100, L501.2450, L500.4050 ####[facility] [address] [place], [address] RDW SD 53.7 fl High 35.1-43.9 [facility] Comment on above: Performed By: #### L 100.0100, L501.2450, L500.4050 ####[facility] [address] [place], [address] WBC (Bld) [#/Vol] 10.7 10*3/uL Normal 4.4-11.0 [facility] Comment on above: Performed By: #### L 100.0100, L501.2450, L500.4050 ####[facility] [address] [place], [address] Absolute Neut Normal 2.0-7.7 [facility] Comment on above: Result Comment: Canc elled via OM: Order cancelled - Patient discharged Performed By: #### L 100.0100, L500.2500 ####[facility] [address] [place], [address] HCT Normal 37-47 [facility] Comment on above: Result Comment: Canc elled via OM: Order cancelled - Patient discharged Performed By: #### L 100.0100, L500.2500 ####[facility] [address] [place], [address] HGB Normal 12.0-15.0 [facility] Comment on above: Result Comment: Canc elled via OM: Order cancelled - Patient discharged Performed By: #### L 100.0100, L500.2500 ####[facility] [address] [place], [address] MCH Normal 27.0-32.0 [facility] Comment on above: Result Comment: Canc elled via OM: Order cancelled - Patient discharged Performed By: #### L 100.0100, L500.2500 ####[facility] [address] [place], [address] MCHC Normal 32-36 [facility] Comment on above: Result Comment: Canc elled via OM: Order cancelled - Patient discharged Performed By: #### L 100.0100, L500.2500 ####[facility] [address] [place], [address] MCV Normal 81-99 [facility] Comment on above: Result Comment: Canc elled via OM: Order cancelled - Patient discharged Performed By: #### L 100.0100, L500.2500 ####[facility] [address] [place], [address] NEUT% Normal 47-70 [facility] Comment on above: Result Comment: Canc elled via OM: Order cancelled - Patient discharged Performed By: #### L 100.0100, L500.2500 ####[facility] [address] [place], [address] PLT Normal 150-450 [facility] Comment on above: Result Comment: Canc elled via OM: Order cancelled - Patient discharged Performed By: #### L 100.0100, L500.2500 ####[facility] [address] [place], [address] RBC Normal 4.2-5.4 [facility] Comment on above: Result Comment: Canc elled via OM: Order cancelled - Patient discharged Performed By: #### L 100.0100, L500.2500 ####[facility] [address] [place], [address] RDW CV Normal 11.6-14.6 [facility] Comment on above: Result Comment: Canc elled via OM: Order cancelled - Patient discharged Performed By: #### L 100.0100, L500.2500 ####[facility] [address] [place], [address] RDW SD Normal 35.1-43.9 [facility] Comment on above: Result Comment: Canc elled via OM: Order cancelled - Patient discharged Performed By: #### L 100.0100, L500.2500 ####[facility] [address] [place], [address] WBC Normal 4.4-11.0 [facility] Comment on above: Result Comment: Canc elled via OM: Order cancelled - Patient discharged Performed By: #### L 100.0100, L500.2500 ####[facility] [address] [place], [address] Comprehensive Metabolic Prof [facility] 07-31-2024 Albumin [Mass/Vol] 2.3 g/dL Low 3.4-4.8 [facility] Comment on above: Performed By: #### L 100.0100, L501.2450, L500.4050 ####[facility] [address] [place], [address] Albumin/Globulin [Mass ratio] 0.6 {ratio} Low 0.9-2.4 [facility] Comment on above: Performed By: #### L 100.0100, L501.2450, L500.4050 ####[facility] [address] [place], [address] ALK PHOS 66 U/L Normal 35-104 [facility] Comment on above: Performed By: #### L 100.0100, L501.2450, L500.4050 ####[facility] [address] [place], [address] ALT [Catalytic activity/Vol] U/L Normal <=34 [facility] Comment on above: Performed By: #### L 100.0100, L501.2450, L500.4050 ####[facility] [address] [place], [address] AST [Catalytic activity/Vol] 20 U/L Normal <=31 [facility] Comment on above: Performed By: #### L 100.0100, L501.2450, L500.4050 ####[facility] [address] [place], [address] Bilirubin [Mass/Vol] 0.19 mg/dL Normal 0.00-1.30 [facility] Comment on above: Performed By: #### L 100.0100, L501.2450, L500.4050 ####[facility] [address] [place], [address] BUN/CRE 30.7 RATIO High 10-20 [facility] Comment on above: Performed By: #### L 100.0100, L501.2450, L500.4050 ####[facility] [address] [place], [address] Calcium [Mass/Vol] 9.0 mg/dL Normal 7.6-11.0 [facility] Comment on above: Performed By: #### L 100.0100, L501.2450, L500.4050 ####[facility] [address] [place], [address] Chloride [Moles/Vol] 95 mmol/L Low 98-108 [facility] Comment on above: Performed By: #### L 100.0100, L501.2450, L500.4050 ####[facility] [address] [place], [address] CO2 [Moles/Vol] 24.7 mmol/L Normal 21.0-32.0 [facility] Comment on above: Performed By: #### L 100.0100, L501.2450, L500.4050 ####[facility] [address] [place], [address] Creatinine [Mass/Vol] 1.88 mg/dL High 0.70-1.20 [facility] Comment on above: Performed By: #### L 100.0100, L501.2450, L500.4050 ####[facility] [address] [place], [address] ECRCL 24.29 ml/min Low 50-250 [facility] Comment on above: Performed By: #### L 100.0100, L501.2450, L500.4050 ####[facility] [address] [place], [address] GAP 10 Normal 5-15 [facility] Comment on above: Performed By: #### L 100.0100, L501.2450, L500.4050 ####[facility] [address] [place], [address] GFR/1.73 sq M.predicted among non-blacks MDRD (S/P/Bld) [Vol rate/Area] 30 mL/min/{1.73_m2} Low >60 [facility] Comment on above: Result Comment: mL/m in/1.73m2 CKD-EPI Creatinine Equation (2020) Performed By: #### L 100.0100, L501.2450, L500.4050 ####[facility] [address] [place], [address] Globulin (S) [Mass/Vol] 3.6 g/dL Normal 2.2-4.2 [facility] Comment on above: Performed By: #### L 100.0100, L501.2450, L500.4050 ####[facility] [address] [place], [address] Glucose [Mass/Vol] 110 mg/dL High 70-99 [facility] Comment on above: Performed By: #### L 100.0100, L501.2450, L500.4050 ####[facility] [address] [place], [address] Potassium [Moles/Vol] 5.7 mmol/L High 3.3-5.1 [facility] Comment on above: Performed By: #### L 100.0100, L501.2450, L500.4050 ####[facility] [address] [place], [address] Sodium [Moles/Vol] 129 mmol/L Low 133-145 [facility] Comment on above: Performed By: #### L 100.0100, L501.2450, L500.4050 ####[facility] [address] [place], [address] T PROT 5.9 g/dL Normal 5.9-8.4 [facility] Comment on above: Performed By: #### L 100.0100, L501.2450, L500.4050 ####[facility] [address] [place], [address] Urea nitrogen [Mass/Vol] 58 mg/dL High 4-19 [facility] Comment on above: Performed By: #### L 100.0100, L501.2450, L500.4050 ####[facility] [address] [place], [address] Emergency Department Summary on 07-31-2024 Emergency Department Summary Normal [facility] H AND P Exam - Hospitaliston 07-31-2024 H&P Exam - Hospitalist Normal [facility] International normalized rat io (INR) calculationOrdered By: Noah Avery on 07-31-2024 International normalized ratio (INR) calculation 1.2 [facility] Lipaseon 07-31-2024 Lipase [Catalytic activity/Vol] 34 U/L Normal 13-75 [facility] Comment on above: Result Comment: Jorge L patterson note:LIPASE revised reference range effective 22.New Lipase methodology. Expected to produce lower valuesthan the previous assay method.NEW Reference Range: 13 - 75 U/L Performed By: #### L 100.0100, L501.2450, L500.4050 ####[facility] [address] [place], [address] Lipase measurementOrdered By : Noah Avery on 07-31-2024 Lipase measurement 34 U/L 13-75 [facility] Partial Thromboplast Timeon 07-31-2024 aPTT Coag (Bld) [Time] 42.1 s High 24.1-36.2 [facility] Comment on above: Performed By: #### L 300.4310, L300.3900 ####[facility] [address] [place], [address] Prothrombin Time w/INRon INR Coag (PPP) [Relative time] 1.2 {INR} Normal [facility] Comment on above: Performed By: #### L 300.4310, L300.3900 ####[facility] [address] [place], [address] PT Coag (PPP) [Time] 15.3 s High 11.7-14.9 [facility] Comment on above: Performed By: #### L 300.4310, L300.3900 ####[facility] [address] [place], [address] Prothrombin timeOrdered By: Noah Avery on 07-31-2024 PT Coag (PPP) [Time] 15.3 s High 11.7-14.9 [facility] Prothrombin time 15.3 SECONDS High 11.7-14.9 [facility] Type AND Screenon 07-31-2024 ABO and Rh group Nom (Bld) Blood group O Rh(D) positive Normal [facility] Comment on above: Order Comment: HGI Performed By: #### B TSTACOSC, [id number] ####[facility] [address] [place], [place], [id number] aPTT Coag (PPP) [Time]Ordere d By: Noah Avery on 07-31-2024 Activated partial thromboplastin time (aPTT) in platelet poor plasma by coagulation a 42.1 Seconds High 24.1-36.2 [facility] Anion gap [Moles/Vol]Ordered By: Millie Massey on 07-30-2024 Anion gap in Serum or Plasma 11 10-10 [facility] Anion gap in Serum or Plasma Ordered By: Millie Massey on 07-30-2024 Anion gap [Moles/Vol] 11 mmol/L 10-10 [facility] BUN/creatinine ratioOrdered By: Millie Massey on 07-30-2024 Urea nitrogen/Creatinine [Mass ratio] 26.1 mg/mg High 10- [facility] BUN/creatinine ratio 26.1 RATIO High 10-20 [facility] Basic Metabolic Profile (BMP )on 07-30-2024 BUN/CRE 26.1 RATIO High 10-20 [facility] Comment on above: Order Comment: 103.2 Performed By: #### L 506.1001, L503.0106, L500.2500, L500.4100, L501.5200, L100.0500, L501.9520 ####[facility] [address] [place], [address] Calcium [Mass/Vol] 8.6 mg/dL Normal 7.6-11.0 [facility] Comment on above: Order Comment: 103.2 Performed By: #### L 506.1001, L503.0106, L500.2500, L500.4100, L501.5200, L100.0500, L501.9520 ####[facility] [address] [place], [address] Chloride [Moles/Vol] 98 mmol/L Normal 98-108 [facility] Comment on above: Order Comment: 103.2 Performed By: #### L 506.1001, L503.0106, L500.2500, L500.4100, L501.5200, L100.0500, L501.9520 ####[facility] [address] [place], [address] CO2 [Moles/Vol] 24.2 mmol/L Normal 21.0-32.0 [facility] Comment on above: Order Comment: 103.2 Performed By: #### L 506.1001, L503.0106, L500.2500, L500.4100, L501.5200, L100.0500, L501.9520 ####[facility] [address] [place], [place], [id number]) Creatinine [Mass/Vol] 1.47 mg/dL High 0.70-1.20 [facility] Comment on above: Order Comment: 103.2 Performed By: #### L 506.1001, L503.0106, L500.2500, L500.4100, L501.5200, L100.0500, L501.9520 ####[facility] [address] [place], [place], [address] GAP 11 Normal 5-15 [facility] Comment on above: Order Comment: 103.2 Performed By: #### L 506.1001, L503.0106, L500.2500, L500.4100, L501.5200, L100.0500, L501.9520 ####[facility] [address] [place], [place], [phone] GFR/1.73 sq M.predicted among non-blacks MDRD (S/P/Bld) [Vol rate/Area] 40 mL/min/{1.73_m2} Low >60 [facility] Comment on above: Order Comment: 103.2 Result Comment: mL/m in/1.73m2 CKD-EPI Creatinine Equation (2020) Performed By: #### L 506.1001, L503.0106, L500.2500, L500.4100, L501.5200, L100.0500, L501.9520 ####[facility] [address] [place], [address] Glucose [Mass/Vol] 96 mg/dL Normal 70-99 [facility] Comment on above: Order Comment: 103.2 Performed By: #### L 506.1001, L503.0106, L500.2500, L500.4100, L501.5200, L100.0500, L501.9520 ####[facility] [address] [place], [address] Potassium [Moles/Vol] 4.4 mmol/L Normal 3.3-5.1 [facility] Comment on above: Order Comment: 103.2 Performed By: #### L 506.1001, L503.0106, L500.2500, L500.4100, L501.5200, L100.0500, L501.9520 ####[facility] [address] [place], [address] Sodium [Moles/Vol] 133 mmol/L Normal 133-145 [facility] Comment on above: Order Comment: 103.2 Performed By: #### L 506.1001, L503.0106, L500.2500, L500.4100, L501.5200, L100.0500, L501.9520 ####[facility] [address] [place], [address] Urea nitrogen [Mass/Vol] 38 mg/dL High 4-19 [facility] Comment on above: Order Comment: 103.2 Performed By: #### L 506.1001, L503.0106, L500.2500, L500.4100, L501.5200, L100.0500, L501.9520 ####[facility] [address] [place], [address] BUN Normal 4-19 [facility] Comment on above: Result Comment: Canc elled via OM: Order cancelled - Patient discharged Performed By: #### L 500.2500, L100.0100 ####[facility] [address] [place], [address] BUN/CRE Normal 10-20 [facility] Comment on above: Result Comment: Canc elled via OM: Order cancelled - Patient discharged Performed By: #### L 500.2500, L100.0100 ####[facility] [address] [place], [address] Calcium Normal 7.6-11.0 [facility] Comment on above: Result Comment: Canc elled via OM: Order cancelled - Patient discharged Performed By: #### L 500.2500, L100.0100 ####[facility] [address] [place], [address] CL Normal 98-107 [facility] Comment on above: Result Comment: Canc elled via OM: Order cancelled - Patient discharged Performed By: #### L 500.2500, L100.0100 ####[facility] [address] [place], [address] CO2 Normal 21.0-32.0 [facility] Comment on above: Result Comment: Canc elled via OM: Order cancelled - Patient discharged Performed By: #### L 500.2500, L100.0100 ####[facility] [address] [place], [address] CREAT,SERUM Normal 0.70-1.20 [facility] Comment on above: Result Comment: Canc elled via OM: Order cancelled - Patient discharged Performed By: #### L 500.2500, L100.0100 ####[facility] [address] [place], [address] eGFR Normal >60 [facility] Comment on above: Result Comment: Canc elled via OM: Order cancelled - Patient discharged Performed By: #### L 500.2500, L100.0100 ####[facility] [address] [place], [address] GAP Normal 5-15 [facility] Comment on above: Result Comment: Canc elled via OM: Order cancelled - Patient discharged Performed By: #### L 500.2500, L100.0100 ####[facility] [address] [place], [address] GLU Normal 70-99 [facility] Comment on above: Result Comment: Canc elled via OM: Order cancelled - Patient discharged Performed By: #### L 500.2500, L100.0100 ####[facility] [address] [place], [address] Potassium Normal 3.5-5.1 [facility] Comment on above: Result Comment: Canc elled via OM: Order cancelled - Patient discharged Performed By: #### L 500.2500, L100.0100 ####[facility] [address] [place], [address] Basic Metabolic Profile (BMP) Normal 136-145 [facility] Comment on above: Result Comment: Canc elled via OM: Order cancelled - Patient discharged Performed By: #### L 500.2500, L100.0100 ####[facility] [address] [place], [address] CBC W/Diff, Automatedon 03-0 Absolute Neut Normal 2.0-7.7 [facility] Comment on above: Result Comment: Canc elled via OM: Order cancelled - Patient discharged Performed By: #### L 500.2500, L100.0100 ####[facility] [address] [place], [address] HCT Normal 37-47 [facility] Comment on above: Result Comment: Canc elled via OM: Order cancelled - Patient discharged Performed By: #### L 500.2500, L100.0100 ####[facility] [address] [place], [address] HGB Normal 12.0-15.0 [facility] Comment on above: Result Comment: Canc elled via OM: Order cancelled - Patient discharged Performed By: #### L 500.2500, L100.0100 ####[facility] [address] [place], [address] MCH Normal 27.0-32.0 [facility] Comment on above: Result Comment: Canc elled via OM: Order cancelled - Patient discharged Performed By: #### L 500.2500, L100.0100 ####[facility] [address] [place], [address] MCHC Normal 32-36 [facility] Comment on above: Result Comment: Canc elled via OM: Order cancelled - Patient discharged Performed By: #### L 500.2500, L100.0100 ####[facility] [address] [place], [address] MCV Normal 81-99 [facility] Comment on above: Result Comment: Canc elled via OM: Order cancelled - Patient discharged Performed By: #### L 500.2500, L100.0100 ####[facility] [address] [place], [address] NEUT% Normal 47-70 [facility] Comment on above: Result Comment: Canc elled via OM: Order cancelled - Patient discharged Performed By: #### L 500.2500, L100.0100 ####[facility] [address] [place], [address] PLT Normal 150-450 [facility] Comment on above: Result Comment: Canc elled via OM: Order cancelled - Patient discharged Performed By: #### L 500.2500, L100.0100 ####[facility] [address] [place], [address] RBC Normal 4.2-5.4 [facility] Comment on above: Result Comment: Canc elled via OM: Order cancelled - Patient discharged Performed By: #### L 500.2500, L100.0100 ####[facility] [address] [place], [address] RDW CV Normal 11.6-14.6 [facility] Comment on above: Result Comment: Canc elled via OM: Order cancelled - Patient discharged Performed By: #### L 500.2500, L100.0100 ####[facility] [address] [place], [address] RDW SD Normal 35.1-43.9 [facility] Comment on above: Result Comment: Canc elled via OM: Order cancelled - Patient discharged Performed By: #### L 500.2500, L100.0100 ####[facility] [address] [place], [address] WBC Normal 4.4-11.0 [facility] Comment on above: Result Comment: Canc elled via OM: Order cancelled - Patient discharged Performed By: #### L 500.2500, L100.0100 ####[facility] [address] [place], [address] CBC-Complete Blood Cnt No Di ffon 07-30-2024 Erythrocyte distribution width (RBC) [Ratio] 17.2 % High 11.6-14.6 [facility] Comment on above: Order Comment: 103.2 Performed By: #### L 506.1001, L503.0106, L500.2500, L500.4100, L501.5200, L100.0500, L501.9520 ####[facility] [address] [place], [address] Hematocrit (Bld) [Volume fraction] 26.4 % Low 37-47 [facility] Comment on above: Order Comment: 103.2 Performed By: #### L 506.1001, L503.0106, L500.2500, L500.4100, L501.5200, L100.0500, L501.9520 ####[facility] [address] [place], [address] Hemoglobin (Bld) [Mass/Vol] 7.8 g/dL Low 12.0-15.0 [facility] Comment on above: Order Comment: 103.2 Performed By: #### L 506.1001, L503.0106, L500.2500, L500.4100, L501.5200, L100.0500, L501.9520 ####[facility] [address] [place], [address] MCH (RBC) [Entitic mass] 25.7 pg Low 27.0-32.0 [facility] Comment on above: Order Comment: 103.2 Performed By: #### L 506.1001, L503.0106, L500.2500, L500.4100, L501.5200, L100.0500, L501.9520 ####[facility] [address] [facility], [address] MCHC (RBC) [Mass/Vol] 29.5 g/dL Low 32-36 [facility] Comment on above: Order Comment: 103.2 Performed By: #### L 506.1001, L503.0106, L500.2500, L500.4100, L501.5200, L100.0500, L501.9520 ####[facility] [address] [place], [address] MCV (RBC) [Entitic vol] 87.1 fL Normal 81-99 [facility] Comment on above: Order Comment: 103.2 Performed By: #### L 506.1001, L503.0106, L500.2500, L500.4100, L501.5200, L100.0500, L501.9520 ####[facility] [address] [place], [address] Platelet mean volume (Bld) [Entitic vol] 9.0 fL Normal 6.2-12.0 [facility] Comment on above: Order Comment: 103.2 Performed By: #### L 506.1001, L503.0106, L500.2500, L500.4100, L501.5200, L100.0500, L501.9520 ####[facility] [address] [place], [address] Platelets (Bld) [#/Vol] 213 10*3/uL Normal 150-450 [facility] Comment on above: Order Comment: 103.2 Performed By: #### L 506.1001, L503.0106, L500.2500, L500.4100, L501.5200, L100.0500, L501.9520 ####[facility] [address] [place], [address] RBC (Bld) [#/Vol] 3.03 10*6/uL Low 4.2-5.4 [facility] Comment on above: Order Comment: 103.2 Performed By: #### L 506.1001, L503.0106, L500.2500, L500.4100, L501.5200, L100.0500, L501.9520 ####[facility] [address] [place], [address] RDW SD 54.9 fl High 35.1-43.9 [facility] Comment on above: Order Comment: 103.2 Performed By: #### L 506.1001, L503.0106, L500.2500, L500.4100, L501.5200, L100.0500, L501.9520 ####[facility] [address] [place], [address] WBC (Bld) [#/Vol] 10.8 10*3/uL Normal 4.4-11.0 [facility] Comment on above: Order Comment: 103.2 Performed By: #### L 506.1001, L503.0106, L500.2500, L500.4100, L501.5200, L100.0500, L501.9520 ####[facility] [address] [place], [place], [id number] Calcium [Mass/Vol]Ordered By : Millie Massey on 07-30-2024 Serum or plasma calcium measurement (mass/volume) 8.6 mg/dL 7.6-11.0 [facility] Calculated very low density lipoprotein (VLDL) cholesterol measurementOrdered By: Millie Massey on 07-30-2024 Calculated very low density lipoprotein (VLDL) cholesterol measurement 16 mg/dL 5-40 [facility] Calculated very low density lipoprotein (VLDL) cholesterol measurement 16 mg/dL 5-40 [facility] Carbon dioxide, total [Moles /volume] in Central venous bloodOrdered By: Millie Massey on 07-30-2024 CO2 [Moles/Vol] 24.2 mmol/L 21.0-32.0 [facility] Carbon dioxide, total [Moles/volume] in Central venous blood 24.2 mmol/L 21.0-32.0 [facility] Chloride assayOrdered By: Carter Massey on 07-30-2024 Chloride [Moles/Vol] 98 mmol/L 98-108 [facility] Chloride assay 98 mmol/L 98-108 [facility] Cholesterol [Mass/Vol]Ordere d By: Millie Massey on 07-30-2024 Serum or plasma cholesterol measurement (mass/volume) 51 mg/dL <201 [facility] Cholesterol in HDL [Mass/Vol ]Ordered By: Millie Massey on 07-30-2024 Serum or plasma cholesterol in HDL measurement (mass/volume) 22 mg/dL Low >40 [facility] Cobalamin (Vitamin B12) [Mas s/Vol]Ordered By: Millie Massey on 07-30-2024 Vitamin B12 ser/plas 452 pg/mL 180-914 [facility] Creatinine [Mass/Vol]Ordered By: Millie Massey on 07-30-2024 Serum creatinine measurement (mass/volume) 1.47 mg/dL High 0.70-1.20 [facility] Erythrocyte distribution wid th (RBC) [Ratio]Ordered By: Millie Massey on 07-30-2024 Erythrocyte distribution width ratio 17.2 % High 11.6-14.6 [facility] Erythrocyte distribution wid th ratioOrdered By: Millie Massey on 07-30-2024 Erythrocyte distribution width (RBC) [Ratio] 17.2 % High 11.6-14.6 [facility] Erythrocyte distribution wid th standard deviationOrdered By: Millie Massey on 07-30-2024 Erythrocyte distribution width (RBC) [Ratio] 54.9 fl High 35.1-43.9 [facility] Erythrocyte distribution width standard deviation 54.9 fl High 35.1-43.9 [facility] GFR/1.73 sq M.predicted víctor g non-blacks MDRD (S/P/Bld) [Vol rate/Area]Ordered By: Millie Massey on 07-30-2024 Glomerular filtration rate (GFR) estimation/1.73 sq m using serum, plasma, or whole b 40 Low >60 [facility] Glomerular filtration rate ( GFR) estimation/1.73 sq m using serum, plasma, or whole bOrdered By: Millie Massey on 07-30-2024 GFR/1.73 sq M.predicted among non-blacks MDRD (S/P/Bld) [Vol rate/Area] 40 mL/min/{1.73_m2} Low >60 [facility] Glucose [Mass/Vol]Ordered By : Millie Massey on 07-30-2024 Serum glucose measurement (mass/volume) 96 mg/dL 70-99 [facility] Hematocrit Auto (Bld) [Volum e fraction]Ordered By: Millie Massey on 07-30-2024 Hematocrit (Bld) [Volume fraction] 26.4 % Low 37-47 [facility] Automated blood hematocrit (percentage) 26.4 % Low 37-47 [facility] Hemoglobin measurementOrdere d By: Millie Massey on 07-30-2024 Hemoglobin (Bld) [Mass/Vol] 7.8 g/dL Low 12.0-15.0 [facility] Hemoglobin measurement 7.8 g/dL Low 12.0-15.0 [facility] L503.0106on 07-30-2024 Cobalamin (Vitamin B12) [Mass/Vol] 452 pg/mL Normal 180-914 [facility] Comment on above: Order Comment: 103.2 Performed By: #### L 506.1001, L503.0106, L500.2500, L500.4100, L501.5200, L100.0500, L501.9520 ####[facility] [address] [place], [place], [id number] L506.1001on 07-30-2024 Vitamin D 25-OH 27.8 ng/mL Low 30-100 [facility] Comment on above: Order Comment: 103.2 Result Comment: Kelly min D StatusDeficiency: <20 ng/mL (50nmol/L)Insufficiency: 20-30 ng/mL (50-75 nmol/L)Sufficiency: 30-100 ng/mL (75-250 nmol/L)Toxicity: >100 ng/mL (>250 nmol/L) Performed By: #### L 506.1001, L503.0106, L500.2500, L500.4100, L501.5200, L100.0500, L501.9520 ####[facility] [address] [place], [place], [address] LDL calc ser/plasOrdered By: Millie Massey on 07-30-2024 Cholesterol in LDL [Mass/Vol] 13 mg/dL [facility] LDL calc ser/plas 13 mg/dL [facility] Lipid Profileon 07-30-2024 CHOL:HDL 2.32 Normal [facility] Comment on above: Order Comment: 103.2 Performed By: #### L 506.1001, L503.0106, L500.2500, L500.4100, L501.5200, L100.0500, L501.9520 ####[facility] [address] [place], [address] Cholesterol [Mass/Vol] 51 mg/dL Normal <=200 [facility] Comment on above: Order Comment: 103.2 Result Comment: Chol esterol level, Desirable <200 mg/dLBorderline high cholesterol 200-239 mg/dLHigh cholesterol >=240 mg/dLRecommendations of the NCEP Adult Treatment Panel for thefollowing risk-cutoff thresholds for the [place] Americanariz[facility] spine and joint hospitalulation. Performed By: #### L 506.1001, L503.0106, L500.2500, L500.4100, L501.5200, L100.0500, L501.9520 ####[facility] [address] [place], [address] Cholesterol in HDL [Mass/Vol] 22 mg/dL Low [facility] Comment on above: Order Comment: 103.2 Result Comment: [place] onal Cholesterol Education Program (NCEP) guidelines:<40 mg/dL: Low HDL-cholesterol (major risk factor for CHD)>= 60 mg/dL: High HDL-cholesterol (negative risk factor forCHD)HDL-cholesterol is affected by a number of factors, e.g.smoking, exercise, hormones, sex and age. Performed By: #### L 506.1001, L503.0106, L500.2500, L500.4100, L501.5200, L100.0500, L501.9520 ####[facility] [address] [place], [address] Cholesterol in LDL [Mass/Vol] 13 mg/dL Normal [facility] Comment on above: Order Comment: 103.2 Result Comment: Bord pvivit=139-876 mg/dL Higher Aaol=712 mg/dL or greater Performed By: #### L 506.1001, L503.0106, L500.2500, L500.4100, L501.5200, L100.0500, L501.9520 ####[facility] [address] [place], [address] Cholesterol in VLDL [Mass/Vol] 16 mg/dL Normal 5-40 [facility] Comment on above: Order Comment: 103.2 Performed By: #### L 506.1001, L503.0106, L500.2500, L500.4100, L501.5200, L100.0500, L501.9520 ####[facility] [address] [place], [address] Triglyceride [Mass/Vol] 82 mg/dL Normal [facility] Comment on above: Order Comment: 103.2 Result Comment: The drugs N-Acetylcysteine and Metamizole may falselydepress this assay.Normal range: <150 mg/dLBorderline High: 150-199 mg/dLHigh: 200-499 mg/dLVery High: >500 mg/dL Performed By: #### L 506.1001, L503.0106, L500.2500, L500.4100, L501.5200, L100.0500, L501.9520 ####[facility] [address] [place], [place], [id number] MCV (RBC) [Entitic vol]Order ed By: Millie Massey on 07-30-2024 MCV (mean corpuscular volume) determination 87.1 fL 81-99 [facility] MCV (mean corpuscular volume ) determinationOrdered By: Millie Massey on 07-30-2024 MCV (RBC) [Entitic vol] 87.1 fL 81-99 [facility] Magnesiumon 07-30-2024 Magnesium [Mass/Vol] 1.9 mg/dL Normal 1.5-2.2 [facility] Comment on above: Order Comment: 103.2 Performed By: #### L 506.1001, L503.0106, L500.2500, L500.4100, L501.5200, L100.0500, L501.9520 ####[facility] [address] [place], [address] Magnesium (Unsp spec) [Mass/ Vol]Ordered By: Millie Massey on 07-30-2024 Magnesium measurement (mass/volume) 1.9 mg/dL 1.5-2.2 [facility] Magnesium measurement (mass/ volume)Ordered By: Millie Massey on 07-30-2024 Magnesium (Unsp spec) [Mass/Vol] 1.9 mg/dL 1.5-2.2 [facility] Mean corpuscular hemoglobin (MCH) determinationOrdered By: Millie Massey on 07-30-2024 MCH (RBC) [Entitic mass] 25.7 pg Low 27.0-32.0 [facility] Mean corpuscular hemoglobin (MCH) determination 25.7 pg Low 27.0-32.0 [facility] Mean corpuscular hemoglobin concentration (MCHC) determinationOrdered By: Millie Massey on 07-30-2024 Mean corpuscular hemoglobin concentration (MCHC) determination 29.5 g/dL Low 32-36 [facility] Mean platelet volume determi nationOrdered By: Millie Massey on 07-30-2024 Mean platelet volume determination 9.0 fl 6.2-12.0 [facility] Platelet countOrdered By: Carter Massey on 07-30-2024 Platelets (Bld) [#/Vol] 213 10*3/uL 150-450 [facility] Platelet count 213 K/mm3 150-450 [facility] Potassium (Unsp spec) [Mass/ Vol]Ordered By: Millie Massey on 07-30-2024 Potassium measurement (mass/volume) 4.4 mmol/L 3.3-5.1 [facility] Potassium measurement (mass/ volume)Ordered By: Millie Massey on 07-30-2024 Potassium (Unsp spec) [Mass/Vol] 4.4 mmol/L 3.3-5.1 [facility] RBC Auto (Bld) [#/Vol]Ordere d By: Millie Massey on 07-30-2024 RBC (Bld) [#/Vol] 3.03 10*6/uL Low 4.2-5.4 [facility] Automated blood erythrocyte count 3.03 M/mm3 Low 4.2-5.4 [facility] Screening total cholesterol/ high density lipoprotein (HDL) cholesterol ratioOrdered By: Millie Massey on 07-30-2024 Screening total cholesterol/high density lipoprotein (HDL) cholesterol ratio 2.32 [facility] Serum creatinine measurement (mass/volume)Ordered By: Millie Massey on 07-30-2024 Creatinine [Mass/Vol] 1.47 mg/dL High 0.70-1.20 [facility] Serum glucose measurement (m ass/volume)Ordered By: Millie Massey on 07-30-2024 Glucose [Mass/Vol] 96 mg/dL 70-99 [facility] Serum or plasma calcium megan urement (mass/volume)Ordered By: Millie Massey on 07-30-2024 Calcium [Mass/Vol] 8.6 mg/dL 7.6-11.0 [facility] Serum or plasma cholesterol in HDL measurement (mass/volume)Ordered By: Millie Massey on 07-30-2024 Cholesterol in HDL [Mass/Vol] 22 mg/dL Low >40 [facility] Serum or plasma cholesterol measurement (mass/volume)Ordered By: Millie Massey on 07-30-2024 Cholesterol [Mass/Vol] 51 mg/dL <201 [facility] Serum or plasma urea nitroge n measurement (mass/volume)Ordered By: Millie Massey on 07-30-2024 Urea nitrogen [Mass/Vol] 38 mg/dL High 4-19 [facility] Sodium levelOrdered By: Silvana Massey on 07-30-2024 Sodium [Moles/Vol] 133 mmol/L 133-145 [facility] Sodium level 133 mmol/L 133-145 [facility] TSH DL <= 0.005 mIU/L QnOrde red By: Millie Massey on 07-30-2024 TSH Qn 0.578 uIU/mL 0.300-4.20 0 [facility] Serum or plasma thyroid stimulating hormone (TSH) measurement by high sensitivity met 0.578 uIU/mL 0.300-4.20 0 [facility] Thyroid Stim Hormone (TSH)on 07-30-2024 TSH 0.578 uIU/mL Normal 0.300-4.20 0 [facility] Comment on above: Order Comment: 103.2 Performed By: #### L 506.1001, L503.0106, L500.2500, L500.4100, L501.5200, L100.0500, L501.9520 ####[facility] [address] [place], [address] Triglycerides measurementOrd ered By: Millie Massey on 07-30-2024 Triglycerides measurement 82 mg/dL <199 [facility] Urea nitrogen [Mass/Vol]Orde red By: Millie Massey on 07-30-2024 Serum or plasma urea nitrogen measurement (mass/volume) 38 mg/dL High 4-19 [facility] Vitamin B12 ser/plasOrdered By: Millie Massey on 07-30-2024 Cobalamin (Vitamin B12) [Mass/Vol] 452 pg/mL 180-914 [facility] Vitamin D, 25-hydroxyOrdered By: Millie Massey on 07-30-2024 Vitamin D, 25-hydroxy 27.8 ng/mL Low 30-100 [facility] White blood cell (WBC) count Ordered By: Millie Massey on 07-30-2024 WBC (Bld) [#/Vol] 10.8 10*3/uL 4.4-11.0 [facility] White blood cell (WBC) count 10.8 K/mm3 4.4-11.0 [facility] Anion gap [Moles/Vol]Ordered By: Remedios Kessler on 07-29-2024 Serum or plasma anion gap determination (moles/volume) 9 10-10 [facility] BUN/creatinine ratioOrdered By: Remedios Kessler on 07-29-2024 Urea nitrogen/Creatinine [Mass ratio] 26.5 mg/mg High 20 [facility] BUN/creatinine ratio 26.5 RATIO High 10-20 [facility] Basic Metabolic Profile (BMP )on 07-29-2024 Anion gap [Moles/Vol] 9 mmol/L Normal - [facility] Comment on above: Performed By: #### L 501.2300, L500.2500, L501.5200, L100.0500 ####[facility] [address] [place], [address] BUN/CRE 26.5 RATIO High 10-20 [facility] Comment on above: Performed By: #### L 501.2300, L500.2500, L501.5200, L100.0500 ####[facility] [address] [place], [address] Calcium [Mass/Vol] 8.5 mg/dL Normal 7.6-11.0 [facility] Comment on above: Performed By: #### L 501.2300, L500.2500, L501.5200, L100.0500 ####[facility] [address] [place], [address] Chloride [Moles/Vol] 95 mmol/L Low 96-108 [facility] Comment on above: Performed By: #### L 501.2300, L500.2500, L501.5200, L100.0500 ####[facility] [address] [place], [address] CO2 [Moles/Vol] 25.0 mmol/L Normal 22.0-29.0 [facility] Comment on above: Performed By: #### L 501.2300, L500.2500, L501.5200, L100.0500 ####[facility] [address] [place], [address] Creatinine [Mass/Vol] 1.88 mg/dL High 0.70-1.20 [facility] Comment on above: Performed By: #### L 501.2300, L500.2500, L501.5200, L100.0500 ####[facility] [address] [place], [address] ECRCL 19.59 ml/min Low 50-250 [facility] Comment on above: Performed By: #### L 501.2300, L500.2500, L501.5200, L100.0500 ####[facility] [address] [place], [address] GFR/1.73 sq M.predicted among non-blacks MDRD (S/P/Bld) [Vol rate/Area] 30 mL/min/{1.73_m2} Low >60 [facility] Comment on above: Result Comment: mL/m in/1.73m2 CKD-EPI Creatinine Equation (2020) Performed By: #### L 501.2300, L500.2500, L501.5200, L100.0500 ####[facility] [address] [place], [address] Glucose [Mass/Vol] 121 mg/dL High 70-99 [facility] Comment on above: Performed By: #### L 501.2300, L500.2500, L501.5200, L100.0500 ####[facility] [address] [place], [address] Potassium [Moles/Vol] 4.6 mmol/L Normal 3.3-5.1 [facility] Comment on above: Performed By: #### L 501.2300, L500.2500, L501.5200, L100.0500 ####[facility] [address] [place], [address] Sodium [Moles/Vol] 129 mmol/L Low 133-145 [facility] Comment on above: Performed By: #### L 501.2300, L500.2500, L501.5200, L100.0500 ####[facility] [address] [place], [address] Urea nitrogen [Mass/Vol] 50 mg/dL High 4-19 [facility] Comment on above: Performed By: #### L 501.2300, L500.2500, L501.5200, L100.0500 ####[facility] [address] [place], [address] CBC-Complete Blood Cnt No Di ffon 07-29-2024 Erythrocyte distribution width (RBC) [Ratio] 17.0 % High 11.6-14.6 [facility] Comment on above: Performed By: #### L 501.2300, L500.2500, L501.5200, L100.0500 ####[facility] [address] [place], [address] Hematocrit (Bld) [Volume fraction] 28.1 % Low 37-47 [facility] Comment on above: Performed By: #### L 501.2300, L500.2500, L501.5200, L100.0500 ####[facility] [address] [place], [address] Hemoglobin (Bld) [Mass/Vol] 8.3 g/dL Low 12.0-15.0 [facility] Comment on above: Performed By: #### L 501.2300, L500.2500, L501.5200, L100.0500 ####[facility] [address] [place], [address] MCH (RBC) [Entitic mass] 25.7 pg Low 27.0-32.0 [facility] Comment on above: Performed By: #### L 501.2300, L500.2500, L501.5200, L100.0500 ####[facility] [address] [place], [address] MCHC (RBC) [Mass/Vol] 29.5 g/dL Low 32-36 [facility] Comment on above: Performed By: #### L 501.2300, L500.2500, L501.5200, L100.0500 ####[facility] [address] [place], [address] MCV (RBC) [Entitic vol] 87.0 fL Normal 81-99 [facility] Comment on above: Performed By: #### L 501.2300, L500.2500, L501.5200, L100.0500 ####[facility] [address] [place], [address] Platelet mean volume (Bld) [Entitic vol] 9.3 fL Normal 6.2-12.0 [facility] Comment on above: Performed By: #### L 501.2300, L500.2500, L501.5200, L100.0500 ####[facility] [address] [place], [address] Platelets (Bld) [#/Vol] 222 10*3/uL Normal 150-450 [facility] Comment on above: Performed By: #### L 501.2300, L500.2500, L501.5200, L100.0500 ####[facility] [address] [place], [address] RBC (Bld) [#/Vol] 3.23 10*6/uL Low 4.2-5.4 [facility] Comment on above: Performed By: #### L 501.2300, L500.2500, L501.5200, L100.0500 ####[facility] [address] [place], [address] RDW SD 53.6 fl High 35.1-43.9 [facility] Comment on above: Performed By: #### L 501.2300, L500.2500, L501.5200, L100.0500 ####[facility] [address] [place], [address] WBC (Bld) [#/Vol] 13.8 10*3/uL High 4.4-11.0 [facility] Comment on above: Performed By: #### L 501.2300, L500.2500, L501.5200, L100.0500 ####[facility] [address] [place], [address] Calcium [Mass/Vol]Ordered By : Remedios Kessler on 07-29-2024 Serum or plasma calcium measurement (mass/volume) 8.5 mg/dL 7.6-11.0 [facility] Carbon dioxide measurementOr dered By: Remedios Kessler on 07-29-2024 CO2 [Moles/Vol] 25.0 mmol/L 22.0-29.0 [facility] Carbon dioxide measurement 25.0 mmol/L 22.0-29.0 [facility] Chloride measurementOrdered By: Remedios Kessler on 07-29-2024 Chloride [Moles/Vol] 95 mmol/L Low 96-108 [facility] Chloride measurement 95 mmol/L Low 96-108 [facility] Creatinine [Mass/Vol]Ordered By: Remedios Kessler on 07-29-2024 Serum creatinine measurement (mass/volume) 1.88 mg/dL High 0.70-1.20 [facility] Erythrocyte distribution wid th (RBC) [Ratio]Ordered By: Remedios Kessler on 07-29-2024 Erythrocyte distribution width ratio 17.0 % High 11.6-14.6 [facility] Erythrocyte distribution wid th ratioOrdered By: Remedios Kessler on 07-29-2024 Erythrocyte distribution width (RBC) [Ratio] 17.0 % High 11.6-14.6 [facility] Erythrocyte distribution wid th standard deviationOrdered By: Remedios Kessler on 07-29-2024 Erythrocyte distribution width (RBC) [Ratio] 53.6 fl High 35.1-43.9 [facility] Erythrocyte distribution width standard deviation 53.6 fl High 35.1-43.9 [facility] Estimation of creatinine austen aranceOrdered By: Remedios Kessler on 07-29-2024 Estimation of creatinine clearance 19.59 ml/min Low 50-250 [facility] GFR/1.73 sq M.predicted víctor g non-blacks MDRD (S/P/Bld) [Vol rate/Area]Ordered By: Remedios Kessler on 07-29-2024 Glomerular filtration rate (GFR) estimation/1.73 sq m using serum, plasma, or whole b 30 Low >60 [facility] Glomerular filtration rate ( GFR) estimation/1.73 sq m using serum, plasma, or whole bOrdered By: Remedios Kessler on 07-29-2024 GFR/1.73 sq M.predicted among non-blacks MDRD (S/P/Bld) [Vol rate/Area] 30 mL/min/{1.73_m2} Low >60 [facility] Glucose [Mass/Vol]Ordered By : Remedios Kessler on 07-29-2024 Serum glucose measurement (mass/volume) 121 mg/dL High 70-99 [facility] Hematocrit Auto (Bld) [Volum e fraction]Ordered By: Remedios Kessler on 07-29-2024 Hematocrit (Bld) [Volume fraction] 28.1 % Low 37-47 [facility] Automated blood hematocrit (percentage) 28.1 % Low 37-47 [facility] Hemoglobin measurementOrdere d By: Remedios Kessler on 07-29-2024 Hemoglobin (Bld) [Mass/Vol] 8.3 g/dL Low 12.0-15.0 [facility] Hemoglobin measurement 8.3 g/dL Low 12.0-15.0 [facility] MCV (RBC) [Entitic vol]Order ed By: Remedios Kessler on 07-29-2024 MCV (mean corpuscular volume) determination 87.0 fL 81-99 [facility] MCV (mean corpuscular volume ) determinationOrdered By: Remedios Kessler on 07-29-2024 MCV (RBC) [Entitic vol] 87.0 fL 81-99 [facility] Magnesiumon 07-29-2024 Magnesium [Mass/Vol] 1.8 mg/dL Normal 1.5-2.2 [facility] Comment on above: Performed By: #### L 501.2300, L500.2500, L501.5200, L100.0500 ####[facility] [id number] [place], [place], [id number] Magnesium (Unsp spec) [Mass/ Vol]Ordered By: Remedios Kessler on 07-29-2024 Magnesium measurement (mass/volume) 1.8 mg/dL 1.5-2.2 [facility] Magnesium measurement (mass/ volume)Ordered By: Remedios Kessler on 07-29-2024 Magnesium (Unsp spec) [Mass/Vol] 1.8 mg/dL 1.5-2.2 [facility] Mean corpuscular hemoglobin (MCH) determinationOrdered By: Remedios Kessler on 07-29-2024 MCH (RBC) [Entitic mass] 25.7 pg Low 27.0-32.0 [facility] Mean corpuscular hemoglobin (MCH) determination 25.7 pg Low 27.0-32.0 [facility] Mean corpuscular hemoglobin concentration (MCHC) determinationOrdered By: Remedios Kessler on 07-29-2024 Mean corpuscular hemoglobin concentration (MCHC) determination 29.5 g/dL Low 32-36 [facility] Mean platelet volume determi nationOrdered By: Remedios Kessler on 07-29-2024 Mean platelet volume determination 9.3 fl 6.2-12.0 [facility] Phosphoruson 07-29-2024 Phosphate [Mass/Vol] 3.3 mg/dL Normal 2.7-4.5 [facility] Comment on above: Performed By: #### L 501.2300, L500.2500, L501.5200, L100.0500 ####[facility] [address] [place], [address] Platelet countOrdered By: Rip Kessler on 07-29-2024 Platelets (Bld) [#/Vol] 222 10*3/uL 150-450 [facility] Platelet count 222 K/mm3 150-450 [facility] Potassium [Moles/Vol]Ordered By: Remedios Kessler on 07-29-2024 Serum or plasma potassium measurement 4.6 mmol/L 3.3-5.1 [facility] RBC Auto (Bld) [#/Vol]Ordere d By: Remedios Kessler on 07-29-2024 RBC (Bld) [#/Vol] 3.23 10*6/uL Low 4.2-5.4 [facility] Automated blood erythrocyte count 3.23 M/mm3 Low 4.2-5.4 [facility] Serum creatinine measurement (mass/volume)Ordered By: Remedios Kessler on 07-29-2024 Creatinine [Mass/Vol] 1.88 mg/dL High 0.70-1.20 [facility] Serum glucose measurement (m ass/volume)Ordered By: Remedios Kessler on 07-29-2024 Glucose [Mass/Vol] 121 mg/dL High 70-99 [facility] Serum or plasma anion gap de termination (moles/volume)Ordered By: Remedios Kessler on 07-29-2024 Anion gap [Moles/Vol] 9 mmol/L 5-15 [facility] Serum or plasma calcium megan urement (mass/volume)Ordered By: Remedios Kessler on 07-29-2024 Calcium [Mass/Vol] 8.5 mg/dL 7.6-11.0 [facility] Serum or plasma potassium me asurementOrdered By: Remedios Kessler on 07-29-2024 Potassium [Moles/Vol] 4.6 mmol/L 3.3-5.1 [facility] Serum or plasma sodium measu rement (moles/volume)Ordered By: Remedios Kessler on 07-29-2024 Sodium [Moles/Vol] 129 mmol/L Low 133-145 [facility] Serum or plasma urea nitroge n measurement (mass/volume)Ordered By: Remedios Kessler on 07-29-2024 Urea nitrogen [Mass/Vol] 50 mg/dL High 4-19 [facility] Serum phosphorus measurement Ordered By: Remedios Kessler on 07-29-2024 Serum phosphorus measurement 3.3 mg/dL 2.7-4.5 [facility] Sodium [Moles/Vol]Ordered By : Remedios Kessler on 07-29-2024 Serum or plasma sodium measurement (moles/volume) 129 mmol/L Low 133-145 [facility] Urea nitrogen [Mass/Vol]Orde red By: Remedios Kessler on 07-29-2024 Serum or plasma urea nitrogen measurement (mass/volume) 50 mg/dL High 4-19 [facility] White blood cell (WBC) count Ordered By: Remedios Kessler on 07-29-2024 WBC (Bld) [#/Vol] 13.8 10*3/uL High 4.4-11.0 [facility] White blood cell (WBC) count 13.8 K/mm3 High 4.4-11.0 [facility] Absolute lymphocyte countOrd ered By: Remedios Kessler on 07-28-2024 Lymphocytes Auto (Unsp spec) [#/Vol] 0.41 10*3/uL Low 0.83-4.51 [facility] Absolute neutrophil countOrd ered By: Remedios Kessler on 07-28-2024 Absolute neutrophil count 14.2 X10^3/uL High 2.0-7.7 [facility] Automated lymphocyte count a s percentage of total leukocytesOrdered By: Remedios Kessler on 07-28-2024 Lymphocytes/100 WBC Auto (Unsp spec) 2.6 % Low 19-41 [facility] Basic Metabolic Profile (BMP )on 07-28-2024 Anion gap [Moles/Vol] 9 mmol/L Normal 5-15 [facility] Comment on above: Performed By: #### L 501.5200, L501.2300, L100.0100, L500.2500 ####[facility] [address] [place], [address] BUN/CRE 22.8 RATIO High 10-20 [facility] Comment on above: Performed By: #### L 501.5200, L501.2300, L100.0100, L500.2500 ####[facility] [address] [place], [address] Calcium [Mass/Vol] 8.8 mg/dL Normal 7.6-11.0 [facility] Comment on above: Performed By: #### L 501.5200, L501.2300, L100.0100, L500.2500 ####[facility] [address] [place], [address] Chloride [Moles/Vol] 98 mmol/L Normal 96-108 [facility] Comment on above: Performed By: #### L 501.5200, L501.2300, L100.0100, L500.2500 ####[facility] [address] [place], [address] CO2 [Moles/Vol] 22.8 mmol/L Normal 22.0-29.0 [facility] Comment on above: Performed By: #### L 501.5200, L501.2300, L100.0100, L500.2500 ####[facility] [address] [place], [address] Creatinine [Mass/Vol] 1.74 mg/dL High 0.70-1.20 [facility] Comment on above: Performed By: #### L 501.5200, L501.2300, L100.0100, L500.2500 ####[facility] [address] [place], [address] ECRCL 21.17 ml/min Low 50-250 [facility] Comment on above: Performed By: #### L 501.5200, L501.2300, L100.0100, L500.2500 ####[facility] [address] [place], [address] GFR/1.73 sq M.predicted among non-blacks MDRD (S/P/Bld) [Vol rate/Area] 33 mL/min/{1.73_m2} Low >60 [facility] Comment on above: Result Comment: mL/m in/1.73m2 CKD-EPI Creatinine Equation (2020) Performed By: #### L 501.5200, L501.2300, L100.0100, L500.2500 ####[facility] [address] [place], [address] Glucose [Mass/Vol] 69 mg/dL Low 70-99 [facility] Comment on above: Performed By: #### L 501.5200, L501.2300, L100.0100, L500.2500 ####[facility] [address] [place], [address] Potassium [Moles/Vol] 4.4 mmol/L Normal 3.3-5.1 [facility] Comment on above: Result Comment: Hemo lysis present, Results??could be affected.?? Performed By: #### L 501.5200, L501.2300, L100.0100, L500.2500 ####[facility] [address] [place], [address] Sodium [Moles/Vol] 130 mmol/L Low 133-145 [facility] Comment on above: Performed By: #### L 501.5200, L501.2300, L100.0100, L500.2500 ####[facility] [address] [place], [address] Urea nitrogen [Mass/Vol] 40 mg/dL High 4-19 [facility] Comment on above: Performed By: #### L 501.5200, L501.2300, L100.0100, L500.2500 ####[facility] [address] [place], [address] Basophil percentageOrdered B y: Remedios Kessler on 07-28-2024 Basophils/100 WBC (Bld) 0.2 % 0-1 [facility] Basophil percentage 0.2 % 0-1 [facility] CBC W/Diff, Automatedon Absolute Lymph 0.41 X10 3/uL Low 0.83-4.51 [facility] Comment on above: Performed By: #### L 501.5200, L501.2300, L100.0100, L500.2500 ####[facility] [address] [place], [address] Absolute Neut 14.2 X10 3/uL High 2.0-7.7 [facility] Comment on above: Performed By: #### L 501.5200, L501.2300, L100.0100, L500.2500 ####[facility] [address] [place], [address] Basophils/100 WBC (Bld) 0.2 % Normal 0-1 [facility] Comment on above: Performed By: #### L 501.5200, L501.2300, L100.0100, L500.2500 ####[facility] [address] [place], [address] Eosinophils/100 WBC (Bld) 0.4 % Normal 0-5 [facility] Comment on above: Performed By: #### L 501.5200, L501.2300, L100.0100, L500.2500 ####[facility] [address] [place], [address] Erythrocyte distribution width (RBC) [Ratio] 17.2 % High 11.6-14.6 [facility] Comment on above: Performed By: #### L 501.5200, L501.2300, L100.0100, L500.2500 ####[facility] [address] [place], [address] Hematocrit (Bld) [Volume fraction] 32.2 % Low 37-47 [facility] Comment on above: Performed By: #### L 501.5200, L501.2300, L100.0100, L500.2500 ####[facility] [address] [place], [address] Hemoglobin (Bld) [Mass/Vol] 9.6 g/dL Low 12.0-15.0 [facility] Comment on above: Performed By: #### L 501.5200, L501.2300, L100.0100, L500.2500 ####[facility] [address] [place], [address] IG% 1.700 High 0.0-0.9 [facility] Comment on above: Result Comment: IG% - Immature Granulocytes (promyelocytes, myelocytes andmetamyelocytes) > 1% indicates that a LEFT SHIFT is Present. Performed By: #### L 501.5200, L501.2300, L100.0100, L500.2500 ####[facility] [address] [place], [address] Lymphocytes/100 WBC (Bld) 2.6 % Low 19-41 [facility] Comment on above: Performed By: #### L 501.5200, L501.2300, L100.0100, L500.2500 ####[facility] [address] [place], [address] MCH (RBC) [Entitic mass] 25.7 pg Low 27.0-32.0 [facility] Comment on above: Performed By: #### L 501.5200, L501.2300, L100.0100, L500.2500 ####[facility] [address] [place], [address] MCHC (RBC) [Mass/Vol] 29.8 g/dL Low 32-36 [facility] Comment on above: Performed By: #### L 501.5200, L501.2300, L100.0100, L500.2500 ####[facility] [address] [place], [address] MCV (RBC) [Entitic vol] 86.3 fL Normal 81-99 [facility] Comment on above: Performed By: #### L 501.5200, L501.2300, L100.0100, L500.2500 ####[facility] [address] [place], [address] Monocytes/100 WBC (Bld) 4.2 % Normal 0-10 [facility] Comment on above: Performed By: #### L 501.5200, L501.2300, L100.0100, L500.2500 ####[facility] [address] [place], [address] Neutrophils/100 WBC (Bld) 90.9 % High 47-70 [facility] Comment on above: Performed By: #### L 501.5200, L501.2300, L100.0100, L500.2500 ####[facility] [address] [place], [address] Nucleated RBC (Bld) [#/Vol] 0 10*3/uL Normal 0-5 [facility] Comment on above: Performed By: #### L 501.5200, L501.2300, L100.0100, L500.2500 ####[facility] [address] [place], [address] Platelet mean volume (Bld) [Entitic vol] 8.3 fL Normal 6.2-12.0 [facility] Comment on above: Performed By: #### L 501.5200, L501.2300, L100.0100, L500.2500 ####[facility] [address] [place], [address] Platelets (Bld) [#/Vol] 217 10*3/uL Normal 150-450 [facility] Comment on above: Performed By: #### L 501.5200, L501.2300, L100.0100, L500.2500 ####[facility] [address] [place], [address] RBC (Bld) [#/Vol] 3.73 10*6/uL Low 4.2-5.4 [facility] Comment on above: Performed By: #### L 501.5200, L501.2300, L100.0100, L500.2500 ####[facility] [address] [place], [address] RDW SD 53.4 fl High 35.1-43.9 [facility] Comment on above: Performed By: #### L 501.5200, L501.2300, L100.0100, L500.2500 ####[facility] [address] [place], [address] WBC (Bld) [#/Vol] 15.6 10*3/uL High 4.4-11.0 [facility] Comment on above: Performed By: #### L 501.5200, L501.2300, L100.0100, L500.2500 ####[facility] [address] [facility] [place], [place], [id number] Eosinophil percentageOrdered By: Remedios Kessler on 07-28-2024 Eosinophils/100 WBC (Bld) 0.4 % 0-5 [facility] Eosinophil percentage 0.4 % 0-5 [facility] Immature granulocytes/100 WB C Auto (Bld)Ordered By: Remedios Kessler on 07-28-2024 Immature granulocytes/100 WBC (Bld) 1.700 % High 0.0-0.9 [facility] Automated immature granulocyte percentage 1.700 % High 0.0-0.9 [facility] Lymphocytes Auto (Unsp spec) [#/Vol]Ordered By: Remedios Kessler on 07-28-2024 Absolute lymphocyte count 0.41 X10^3/uL Low 0.83-4.51 [facility] Lymphocytes/100 WBC Auto (Un sp spec)Ordered By: Remedios Kessler on 07-28-2024 Automated lymphocyte count as percentage of total leukocytes 2.6 % Low 19-41 [facility] Magnesiumon 07-28-2024 Magnesium [Mass/Vol] 2.0 mg/dL Normal 1.5-2.2 [facility] Comment on above: Performed By: #### L 501.5200, L501.2300, L100.0100, L500.2500 ####[facility] [address] [facility] [place], [place], [address] Monocyte percentageOrdered B y: Remedios Kessler on 07-28-2024 Monocytes/100 WBC (Bld) 4.2 % 0-10 [facility] Monocyte percentage 4.2 % 0-10 [facility] Neutrophil percentageOrdered By: Remedios Kessler on 07-28-2024 Neutrophils/100 WBC (Bld) 90.9 % High 47-70 [facility] Neutrophil percentage 90.9 % High 47-70 [facility] Nucleated red blood cell per centageOrdered By: Remedios Kessler on 07-28-2024 Nucleated red blood cell percentage 0 % 0-5 [facility] Phosphoruson 07-28-2024 Phosphate [Mass/Vol] 3.4 mg/dL Normal 2.7-4.5 [facility] Comment on above: Performed By: #### L 501.5200, L501.2300, L100.0100, L500.2500 ####[facility] [address] [place], [address] Basic Metabolic Profile (BMP )on 07-27-2024 Anion gap [Moles/Vol] 9 mmol/L Normal 5-15 [facility] Comment on above: Performed By: #### L 500.2500, L501.5200, L100.0100, L501.2300 ####[facility] [address] [place], [address] BUN/CRE 21.0 RATIO High 10-20 [facility] Comment on above: Performed By: #### L 500.2500, L501.5200, L100.0100, L501.2300 ####[facility] [address] [place], [address] Calcium [Mass/Vol] 8.9 mg/dL Normal 7.6-11.0 [facility] Comment on above: Performed By: #### L 500.2500, L501.5200, L100.0100, L501.2300 ####[facility] [address] [place], [address] Chloride [Moles/Vol] 98 mmol/L Normal 96-108 [facility] Comment on above: Performed By: #### L 500.2500, L501.5200, L100.0100, L501.2300 ####[facility] [address] [place], [address] CO2 [Moles/Vol] 23.8 mmol/L Normal 22.0-29.0 [facility] Comment on above: Performed By: #### L 500.2500, L501.5200, L100.0100, L501.2300 ####[facility] [address] [place], [address] Creatinine [Mass/Vol] 1.40 mg/dL High 0.70-1.20 [facility] Comment on above: Performed By: #### L 500.2500, L501.5200, L100.0100, L501.2300 ####[facility] [address] [place], [address] ECRCL 26.31 ml/min Normal [facility] Comment on above: Performed By: #### L 500.2500, L501.5200, L100.0100, L501.2300 ####[facility] [address] [place], [address] GFR/1.73 sq M.predicted among non-blacks MDRD (S/P/Bld) [Vol rate/Area] 43 mL/min/{1.73_m2} Low >60 [facility] Comment on above: Result Comment: mL/m in/1.73m2 CKD-EPI Creatinine Equation (2020) Performed By: #### L 500.2500, L501.5200, L100.0100, L501.2300 ####[facility] [address] [place], [address] Glucose [Mass/Vol] 89 mg/dL Normal 70-99 [facility] Comment on above: Performed By: #### L 500.2500, L501.5200, L100.0100, L501.2300 ####[facility] [address] [place], [address] Potassium [Moles/Vol] 3.8 mmol/L Normal 3.3-5.1 [facility] Comment on above: Performed By: #### L 500.2500, L501.5200, L100.0100, L501.2300 ####[facility] [address] [place], [address] Sodium [Moles/Vol] 130 mmol/L Low 133-145 [facility] Comment on above: Performed By: #### L 500.2500, L501.5200, L100.0100, L501.2300 ####[facility] [address] [place], [address] Urea nitrogen [Mass/Vol] 29 mg/dL High 4-19 [facility] Comment on above: Performed By: #### L 500.2500, L501.5200, L100.0100, L501.2300 ####[facility] [address] [place], [address] CBC W/Diff, Automatedon 03-0 1-2024 Absolute Lymph 0.63 X10 3/uL Low 0.83-4.51 [facility] Comment on above: Performed By: #### L 500.2500, L501.5200, L100.0100, L501.2300 ####[facility] [address] [place], [address] Absolute Neut 18.1 X10 3/uL High 2.0-7.7 [facility] Comment on above: Performed By: #### L 500.2500, L501.5200, L100.0100, L501.2300 ####[facility] [address] [place], [address] Basophils/100 WBC (Bld) 0.2 % Normal 0-1 [facility] Comment on above: Performed By: #### L 500.2500, L501.5200, L100.0100, L501.2300 ####[facility] [address] [place], [address] Eosinophils/100 WBC (Bld) 0.3 % Normal 0-5 [facility] Comment on above: Performed By: #### L 500.2500, L501.5200, L100.0100, L501.2300 ####[facility] [address] [place], [address] Erythrocyte distribution width (RBC) [Ratio] 17.2 % High 11.6-14.6 [facility] Comment on above: Performed By: #### L 500.2500, L501.5200, L100.0100, L501.2300 ####[facility] [address] [place], [address] Hematocrit (Bld) [Volume fraction] 30.9 % Low 37-47 [facility] Comment on above: Performed By: #### L 500.2500, L501.5200, L100.0100, L501.2300 ####[facility] [address] [place], [address] Hemoglobin (Bld) [Mass/Vol] 9.2 g/dL Low 12.0-15.0 [facility] Comment on above: Performed By: #### L 500.2500, L501.5200, L100.0100, L501.2300 ####[facility] [address] [place], [address] IG% 1.400 High 0.0-0.9 [facility] Comment on above: Result Comment: IG% - Immature Granulocytes (promyelocytes, myelocytes andmetamyelocytes) > 1% indicates that a LEFT SHIFT is Present. Performed By: #### L 500.2500, L501.5200, L100.0100, L501.2300 ####[facility] [address] [place], [address] Lymphocytes/100 WBC (Bld) 3.2 % Low 19-41 [facility] Comment on above: Performed By: #### L 500.2500, L501.5200, L100.0100, L501.2300 ####[facility] [address] [place], [address] MCH (RBC) [Entitic mass] 26.1 pg Low 27.0-32.0 [facility] Comment on above: Performed By: #### L 500.2500, L501.5200, L100.0100, L501.2300 ####[facility] [address] [place], [address] MCHC (RBC) [Mass/Vol] 29.8 g/dL Low 32-36 [facility] Comment on above: Performed By: #### L 500.2500, L501.5200, L100.0100, L501.2300 ####[facility] [address] [place], [address] MCV (RBC) [Entitic vol] 87.5 fL Normal 81-99 [facility] Comment on above: Performed By: #### L 500.2500, L501.5200, L100.0100, L501.2300 ####[facility] [address] [place], [address] Monocytes/100 WBC (Bld) 4.5 % Normal 0-10 [facility] Comment on above: Performed By: #### L 500.2500, L501.5200, L100.0100, L501.2300 ####[facility] [address] [place], [address] Neutrophils/100 WBC (Bld) 90.4 % High 47-70 [facility] Comment on above: Performed By: #### L 500.2500, L501.5200, L100.0100, L501.2300 ####[facility] [address] [place], [address] Nucleated RBC (Bld) [#/Vol] 0 10*3/uL Normal 0-5 [facility] Comment on above: Performed By: #### L 500.2500, L501.5200, L100.0100, L501.2300 ####[facility] [address] [place], [address] Platelet mean volume (Bld) [Entitic vol] 8.8 fL Normal 6.2-12.0 [facility] Comment on above: Performed By: #### L 500.2500, L501.5200, L100.0100, L501.2300 ####[facility] [address] [place], [address] Platelets (Bld) [#/Vol] 265 10*3/uL Normal 150-450 [facility] Comment on above: Performed By: #### L 500.2500, L501.5200, L100.0100, L501.2300 ####[facility] [address] [place], [address] RBC (Bld) [#/Vol] 3.53 10*6/uL Low 4.2-5.4 [facility] Comment on above: Performed By: #### L 500.2500, L501.5200, L100.0100, L501.2300 ####[facility] [address] [place], [address] RDW SD 53.9 fl High 35.1-43.9 [facility] Comment on above: Performed By: #### L 500.2500, L501.5200, L100.0100, L501.2300 ####[facility] [address] [place], [address] WBC (Bld) [#/Vol] 20.0 10*3/uL High 4.4-11.0 [facility] Comment on above: Performed By: #### L 500.2500, L501.5200, L100.0100, L501.2300 ####[facility] [address] [place], [address] Magnesiumon 07-27-2024 Magnesium [Mass/Vol] 1.9 mg/dL Normal 1.5-2.2 [facility] Comment on above: Performed By: #### L 500.2500, L501.5200, L100.0100, L501.2300 ####[facility] [address] [place], [address] Phosphoruson 07-27-2024 Phosphate [Mass/Vol] 3.6 mg/dL Normal 2.7-4.5 [facility] Comment on above: Performed By: #### L 500.2500, L501.5200, L100.0100, L501.2300 ####[facility] [address] [place], [address] Basic Metabolic Profile (BMP )on 07-26-2024 Anion gap [Moles/Vol] 10 mmol/L Normal 5-15 [facility] Comment on above: Performed By: #### L 501.2300, L500.2500, L501.5200 ####[facility] [address] [place], [address] BUN/CRE 19.9 RATIO Normal 10-20 [facility] Comment on above: Performed By: #### L 501.2300, L500.2500, L501.5200 ####[facility] [address] [place], [address] Calcium [Mass/Vol] 8.6 mg/dL Normal 7.6-11.0 [facility] Comment on above: Performed By: #### L 501.2300, L500.2500, L501.5200 ####[facility] [address] [place], [address] Chloride [Moles/Vol] 98 mmol/L Normal 96-108 [facility] Comment on above: Performed By: #### L 501.2300, L500.2500, L501.5200 ####[facility] [address] [place], [address] CO2 [Moles/Vol] 22.9 mmol/L Normal 22.0-29.0 [facility] Comment on above: Performed By: #### L 501.2300, L500.2500, L501.5200 ####[facility] [address] [place], [address] Creatinine [Mass/Vol] 1.60 mg/dL High 0.70-1.20 [facility] Comment on above: Performed By: #### L 501.2300, L500.2500, L501.5200 ####[facility] [address] [place], [address] ECRCL 23.88 ml/min Normal [facility] Comment on above: Performed By: #### L 501.2300, L500.2500, L501.5200 ####[facility] [address] [place], [address] GFR/1.73 sq M.predicted among non-blacks MDRD (S/P/Bld) [Vol rate/Area] 36 mL/min/{1.73_m2} Low >60 [facility] Comment on above: Result Comment: mL/m in/1.73m2 CKD-EPI Creatinine Equation (2020) Performed By: #### L 501.2300, L500.2500, L501.5200 ####[facility] [address] [place], [address] Glucose [Mass/Vol] 66 mg/dL Low 70-99 [facility] Comment on above: Performed By: #### L 501.2300, L500.2500, L501.5200 ####[facility] [address] [place], [address] Potassium [Moles/Vol] 4.1 mmol/L Normal 3.3-5.1 [facility] Comment on above: Result Comment: Hemo lysis present, Results??could be affected.?? Performed By: #### L 501.2300, L500.2500, L501.5200 ####[facility] [address] [place], [address] Sodium [Moles/Vol] 131 mmol/L Low 133-145 [facility] Comment on above: Performed By: #### L 501.2300, L500.2500, L501.5200 ####[facility] [address] [place], [address] Urea nitrogen [Mass/Vol] 32 mg/dL High 4-19 [facility] Comment on above: Performed By: #### L 501.2300, L500.2500, [id number] ####[facility] [address] [place], [address] Magnesiumon 07-26-2024 Magnesium [Mass/Vol] 1.9 mg/dL Normal 1.5-2.2 [facility] Comment on above: Performed By: #### L 501.2300, L500.2500, [id number] ####[facility] [address] [place], [address] Phosphoruson 07-26-2024 Phosphate [Mass/Vol] 3.9 mg/dL Normal 2.7-4.5 [facility] Comment on above: Performed By: #### L 501.2300, L500.2500, L501.5200 ####[facility] [address] [place], [address] Wound Cultureon 07-26-2024 WC left lower abdomen No growth aerobically. Normal [facility] Comment on above: Performed By: #### M 100.2000, M100.3000, L8200.1075 ####[facility] [address] [place], [address] Basic Metabolic Profile (BMP )on 07-25-2024 Anion gap [Moles/Vol] 11 mmol/L Normal 5-15 [facility] Comment on above: Performed By: #### L 501.5200, L100.0500, L501.2300, L500.2500 ####[facility] [address] [place], [address] BUN/CRE 20.2 RATIO High 10-20 [facility] Comment on above: Performed By: #### L 501.5200, L100.0500, L501.2300, L500.2500 ####[facility] [address] [place], [address] Calcium [Mass/Vol] 8.4 mg/dL Normal 7.6-11.0 [facility] Comment on above: Performed By: #### L 501.5200, L100.0500, L501.2300, L500.2500 ####[facility] [address] [place], [address] Chloride [Moles/Vol] 101 mmol/L Normal 96-108 [facility] Comment on above: Performed By: #### L 501.5200, L100.0500, L501.2300, L500.2500 ####[facility] [address] [place], [address] CO2 [Moles/Vol] 23.9 mmol/L Normal 22.0-29.0 [facility] Comment on above: Performed By: #### L 501.5200, L100.0500, L501.2300, L500.2500 ####[facility] [address] [place], [address] Creatinine [Mass/Vol] 2.1 mg/dL High 0.6-1.0 [facility] Comment on above: Performed By: #### L 501.5200, L100.0500, L501.2300, L500.2500 ####[facility] [address] [place], [address] ECRCL 19.07 ml/min Normal [facility] Comment on above: Performed By: #### L 501.5200, L100.0500, L501.2300, L500.2500 ####[facility] [address] [place], [address] GFR/1.73 sq M.predicted among non-blacks MDRD (S/P/Bld) [Vol rate/Area] 26 mL/min/{1.73_m2} Low >60 [facility] Comment on above: Result Comment: mL/m in/1.73m2 CKD-EPI Creatinine Equation (2020) Performed By: #### L 501.5200, L100.0500, L501.2300, L500.2500 ####[facility] [address] [place], [address] Glucose [Mass/Vol] 101 mg/dL High 70-99 [facility] Comment on above: Performed By: #### L 501.5200, L100.0500, L501.2300, L500.2500 ####[facility] [address] [place], [address] Potassium [Moles/Vol] 4.1 mmol/L Normal 3.3-5.1 [facility] Comment on above: Performed By: #### L 501.5200, L100.0500, L501.2300, L500.2500 ####[facility] [address] [place], [address] Sodium [Moles/Vol] 136 mmol/L Normal 133-145 [facility] Comment on above: Performed By: #### L 501.5200, L100.0500, L501.2300, L500.2500 ####[facility] [address] [place], [address] Urea nitrogen [Mass/Vol] 43 mg/dL High 4-19 [facility] Comment on above: Performed By: #### L 501.5200, L100.0500, L501.2300, L500.2500 ####[facility] [address] [place], [address] CBC-Complete Blood Cnt No Geri jaureguion 07-25-2024 Erythrocyte distribution width (RBC) [Ratio] 17.2 % High 11.6-14.6 [facility] Comment on above: Performed By: #### L 501.5200, L100.0500, L501.2300, L500.2500 ####[facility] [address] [place], [address] Hematocrit (Bld) [Volume fraction] 27.3 % Low 37-47 [facility] Comment on above: Performed By: #### L 501.5200, L100.0500, L501.2300, L500.2500 ####[facility] [address] [place], [address] Hemoglobin (Bld) [Mass/Vol] 8.2 g/dL Low 12.0-15.0 [facility] Comment on above: Performed By: #### L 501.5200, L100.0500, L501.2300, L500.2500 ####[facility] [address] [place], [address] MCH (RBC) [Entitic mass] 26.5 pg Low 27.0-32.0 [facility] Comment on above: Performed By: #### L 501.5200, L100.0500, L501.2300, L500.2500 ####[facility] [address] [place], [address] MCHC (RBC) [Mass/Vol] 30.0 g/dL Low 32-36 [facility] Comment on above: Performed By: #### L 501.5200, L100.0500, L501.2300, L500.2500 ####[facility] [address] [place], [address] MCV (RBC) [Entitic vol] 88.1 fL Normal 81-99 [facility] Comment on above: Performed By: #### L 501.5200, L100.0500, L501.2300, L500.2500 ####[facility] [address] [place], [address] Platelet mean volume (Bld) [Entitic vol] 8.8 fL Normal 6.2-12.0 [facility] Comment on above: Performed By: #### L 501.5200, L100.0500, L501.2300, L500.2500 ####[facility] [address] [place], [address] Platelets (Bld) [#/Vol] 317 10*3/uL Normal 150-450 [facility] Comment on above: Performed By: #### L 501.5200, L100.0500, L501.2300, L500.2500 ####[facility] [address] [place], [address] RBC (Bld) [#/Vol] 3.10 10*6/uL Low 4.2-5.4 [facility] Comment on above: Performed By: #### L 501.5200, L100.0500, L501.2300, L500.2500 ####[facility] [address] [place], [address] RDW SD 55.3 fl High 35.1-43.9 [facility] Comment on above: Performed By: #### L 501.5200, L100.0500, L501.2300, L500.2500 ####[facility] [address] [place], [address] WBC (Bld) [#/Vol] 10.8 10*3/uL Normal 4.4-11.0 [facility] Comment on above: Performed By: #### L 501.5200, L100.0500, L501.2300, L500.2500 ####[facility] [address] [place], [address] Gram Stainon 07-25-2024 GS left lower abdomen Gram Stain No organisms seen No cells seen Normal [facility] Comment on above: Performed By: #### M 100.2000, M100.3000, L8200.1075 ####[facility] [address] [place], [address] Gram stainOrdered By: Panda Kessler on 07-25-2024 Microscopic observation Gram stain Nom (Unsp spec) [facility] MRSA Wound DNA by PCRon 06-30 MRSA DNA ASSAY Negative Normal Negative [facility] Comment on above: Order Comment: left lower abdomen Performed By: #### M 100.2000, M100.3000, L8200.1075 ####[facility] [address] [place], [address] SA DNA ASSAY Negative Normal Negative [facility] Comment on above: Order Comment: left lower abdomen Performed By: #### M 100.2000, M100.3000, L8200.1075 ####[facility] [address] [place], [address] MRSA detection PCROrdered By : Remedios Kessler on 07-25-2024 MRSA detection PCR Negative Negative [facility] Magnesiumon 07-25-2024 Magnesium [Mass/Vol] 1.9 mg/dL Normal 1.5-2.2 [facility] Comment on above: Performed By: #### L 501.5200, L100.0500, L501.2300, L500.2500 ####[facility] [address] [place], [address] Phosphoruson 07-25-2024 Phosphate [Mass/Vol] 4.9 mg/dL High 2.7-4.5 [facility] Comment on above: Performed By: #### L 501.5200, L100.0500, L501.2300, L500.2500 ####[facility] [address] [place], [place], [address] Routine wound cultureOrdered By: Remedios Kessler on 07-25-2024 Routine wound culture No growth aerobically. [facility] Staphylococcus aureus DNA de tection by probe and target amplification methodOrdered By: Remedios Kessler on 07-25-2024 S. aureus DNA MOISES+probe Ql (Unsp spec) Negative Negative [facility] ALP [Catalytic activity/Vol] Ordered By: Judd Galvin on 07-24-2024 Serum or plasma alkaline phosphatase measurement 45 U/L 35-104 [facility] ALT [Catalytic activity/Vol] Ordered By: Judd Galvin on 07-24-2024 Serum or plasma alanine aminotransferase (ALT) measurement 9 U/L <35 [facility] Albumin [Mass/Vol]Ordered By : Judd Galvin on 07-24-2024 Serum or plasma albumin measurement (mass/volume) 2.4 g/dL Low 3.4-4.8 [facility] Albumin/Globulin [Mass ratio ]Ordered By: Juddangelo Galvin on 07-24-2024 Serum or plasma albumin/globulin mass ratio 0.7 RATIO Low 0.9-2.4 [facility] Bilirubin, totalOrdered By: Judd Galvin on 07-24-2024 Bilirubin [Mass/Vol] 0.32 mg/dL 0.00-1.30 [facility] Bilirubin, total 0.32 mg/dL 0.00-1.30 [facility] CBC W/Diff, Automatedon 06-30 Absolute Lymph 0.57 X10 3/uL Low 0.83-4.51 [facility] Comment on above: Performed By: #### L 500.4050, L100.0100 ####[facility] [address] [place], [place], [address] Absolute Neut 11.6 X10 3/uL High 2.0-7.7 [facility] Comment on above: Performed By: #### L 500.4050, L100.0100 ####[facility] [address] [place], [address] Basophils/100 WBC (Bld) 0.3 % Normal 0-1 [facility] Comment on above: Performed By: #### L 500.4050, L100.0100 ####[facility] [address] [place], [address] Eosinophils/100 WBC (Bld) 0.4 % Normal 0-5 [facility] Comment on above: Performed By: #### L 500.4050, L100.0100 ####[facility] [address] [place], [address] Erythrocyte distribution width (RBC) [Ratio] 17.2 % High 11.6-14.6 [facility] Comment on above: Performed By: #### L 500.4050, L100.0100 ####[facility] [address] [place], [address] Hematocrit (Bld) [Volume fraction] 29.6 % Low 37-47 [facility] Comment on above: Performed By: #### L 500.4050, L100.0100 ####[facility] [address] [place], [address] Hemoglobin (Bld) [Mass/Vol] 8.8 g/dL Low 12.0-15.0 [facility] Comment on above: Performed By: #### L 500.4050, L100.0100 ####[facility] [address] [place], [address] IG% 1.700 High 0.0-0.9 [facility] Comment on above: Result Comment: IG% - Immature Granulocytes (promyelocytes, myelocytes andmetamyelocytes) > 1% indicates that a LEFT SHIFT is Present. Performed By: #### L 500.4050, L100.0100 ####[facility] [address] [place], [address] Lymphocytes/100 WBC (Bld) 4.3 % Low 19-41 [facility] Comment on above: Performed By: #### L 500.4050, L100.0100 ####[facility] [address] [place], [address] MCH (RBC) [Entitic mass] 26.5 pg Low 27.0-32.0 [facility] Comment on above: Performed By: #### L 500.4050, L100.0100 ####[facility] [address] [place], [address] MCHC (RBC) [Mass/Vol] 29.7 g/dL Low 32-36 [facility] Comment on above: Performed By: #### L 500.4050, L100.0100 ####[facility] [address] [place], [address] MCV (RBC) [Entitic vol] 89.2 fL Normal 81-99 [facility] Comment on above: Performed By: #### L 500.4050, L100.0100 ####[facility] [address] [place], [address] Monocytes/100 WBC (Bld) 6.6 % Normal 0-10 [facility] Comment on above: Performed By: #### L 500.4050, L100.0100 ####[facility] [address] [place], [address] Neutrophils/100 WBC (Bld) 86.7 % High 47-70 [facility] Comment on above: Performed By: #### L 500.4050, L100.0100 ####[facility] [address] [place], [address] Nucleated RBC (Bld) [#/Vol] 0.1 10*3/uL Normal 0-5 [facility] Comment on above: Performed By: #### L 500.4050, L100.0100 ####[facility] [address] [place], [address] Platelet mean volume (Bld) [Entitic vol] 8.4 fL Normal 6.2-12.0 [facility] Comment on above: Performed By: #### L 500.4050, L100.0100 ####[facility] [address] [place], [address] Platelets (Bld) [#/Vol] 303 10*3/uL Normal 150-450 [facility] Comment on above: Performed By: #### L 500.4050, L100.0100 ####[facility] [address] [place], [address] RBC (Bld) [#/Vol] 3.32 10*6/uL Low 4.2-5.4 [facility] Comment on above: Performed By: #### L 500.4050, L100.0100 ####[facility] [address] [place], [address] RDW SD 55.6 fl High 35.1-43.9 [facility] Comment on above: Performed By: #### L 500.4050, L100.0100 ####[facility] [address] [place], [address] WBC (Bld) [#/Vol] 13.4 10*3/uL High 4.4-11.0 [facility] Comment on above: Performed By: #### L 500.4050, L100.0100 ####[facility] [address] [place], [address] Comprehensive Metabolic Prof ilon 07-24-2024 Albumin [Mass/Vol] 2.4 g/dL Low 3.4-4.8 [facility] Comment on above: Performed By: #### L 500.4050, L100.0100 ####[facility] [address] [place], [address] Albumin/Globulin [Mass ratio] 0.7 {ratio} Low 0.9-2.4 [facility] Comment on above: Performed By: #### L 500.4050, L100.0100 ####[facility] [address] [place], [address] ALK PHOS 45 U/L Normal 35-104 [facility] Comment on above: Performed By: #### L 500.4050, L100.0100 ####[facility] [address] [place], [address] ALT [Catalytic activity/Vol] 9 U/L Normal <=34 [facility] Comment on above: Performed By: #### L 500.4050, L100.0100 ####[facility] [address] [place], [address] Anion gap [Moles/Vol] 10 mmol/L Normal 5-15 [facility] Comment on above: Performed By: #### L 500.4050, L100.0100 ####[facility] [address] [place], [address] AST [Catalytic activity/Vol] 20 U/L Normal <=31 [facility] Comment on above: Performed By: #### L 500.4050, L100.0100 ####[facility] [address] [place], [address] Bilirubin [Mass/Vol] 0.32 mg/dL Normal 0.00-1.30 [facility] Comment on above: Performed By: #### L 500.4050, L100.0100 ####[facility] [address] [place], [address] BUN/CRE 19.3 RATIO Normal 10-20 [facility] Comment on above: Performed By: #### L 500.4050, L100.0100 ####[facility] [address] [place], [address] Calcium [Mass/Vol] 8.7 mg/dL Normal 7.6-11.0 [facility] Comment on above: Performed By: #### L 500.4050, L100.0100 ####[facility] [address] [place], [address] Chloride [Moles/Vol] 100 mmol/L Normal 96-108 [facility] Comment on above: Performed By: #### L 500.4050, L100.0100 ####[facility] [address] [place], [address] CO2 [Moles/Vol] 26.3 mmol/L Normal 22.0-29.0 [facility] Comment on above: Performed By: #### L 500.4050, L100.0100 ####[facility] [address] [place], [address] Creatinine [Mass/Vol] 1.8 mg/dL High 0.6-1.0 [facility] Comment on above: Performed By: #### L 500.4050, L100.0100 ####[facility] [address] [place], [address] ECRCL 22.25 ml/min Normal [facility] Comment on above: Performed By: #### L 500.4050, L100.0100 ####[facility] [address] [place], [address] GFR/1.73 sq M.predicted among non-blacks MDRD (S/P/Bld) [Vol rate/Area] 32 mL/min/{1.73_m2} Low >60 [facility] Comment on above: Result Comment: mL/m in/1.73m2 CKD-EPI Creatinine Equation (2020) Performed By: #### L 500.4050, L100.0100 ####[facility] [address] [place], [address] Globulin (S) [Mass/Vol] 3.6 g/dL Normal 2.2-4.2 [facility] Comment on above: Performed By: #### L 500.4050, L100.0100 ####[facility] [address] [place], [address] Glucose [Mass/Vol] 68 mg/dL Low 70-99 [facility] Comment on above: Performed By: #### L 500.4050, L100.0100 ####[facility] [address] [place], [address] Potassium [Moles/Vol] 4.0 mmol/L Normal 3.3-5.1 [facility] Comment on above: Performed By: #### L 500.4050, L100.0100 ####[facility] [address] [place], [address] Sodium [Moles/Vol] 137 mmol/L Normal 133-145 [facility] Comment on above: Performed By: #### L 500.4050, L100.0100 ####[facility] [address] [place], [address] T PROT 6.0 g/dL Normal 5.9-8.4 [facility] Comment on above: Performed By: #### L 500.4050, L100.0100 ####[facility] [address] [place], [address] Urea nitrogen [Mass/Vol] 34 mg/dL High 4-19 [facility] Comment on above: Performed By: #### L 500.4050, L100.0100 ####[facility] [address] [place], [address] Consultation - Nephrologyon 07-24-2024 Consultation - Nephrology Normal [facility] EGD Reporton 07-24-2024 EGD Report Normal [facility] MR/POSTOP.ANEon 07-24-2024 MR/POSTOP.ANE Normal [facility] MR/ZUXOHOJO3fs 07-24-2024 MR/POSTOPAN2 Normal [facility] No Panel InformationOrdered By: Judd Galvin on 07-24-2024 20 U/L <32 [facility] Serum globulin measurementOr dered By: Judd Galvin on 07-24-2024 Globulin (S) [Mass/Vol] 3.6 g/dL 2.2-4.2 [facility] Serum globulin measurement 3.6 g/dL 2.2-4.2 [facility] Serum or plasma alanine camargo otransferase (ALT) measurementOrdered By: Judd Galvin on 07-24-2024 ALT [Catalytic activity/Vol] 9 U/L <35 [facility] Serum or plasma albumin megan urement (mass/volume)Ordered By: Judd Galvin on 07-24-2024 Albumin [Mass/Vol] 2.4 g/dL Low 3.4-4.8 [facility] Serum or plasma albumin/glob ulin mass ratioOrdered By: Judd Galvin on 07-24-2024 Albumin/Globulin [Mass ratio] 0.7 {ratio} Low 0.9-2.4 [facility] Serum or plasma alkaline susan sphatase measurementOrdered By: Judd Galvin on 07-24-2024 ALP [Catalytic activity/Vol] 45 U/L 35-104 [facility] Total proteinOrdered By: Velia Galvin on 07-24-2024 Protein [Mass/Vol] 6.0 g/dL 5.9-8.4 [facility] Total protein 6.0 g/dL 5.9-8.4 [facility] Basic Metabolic Profile (BMP )on 07-23-2024 BUN/CRE 19.5 RATIO Normal 10-20 [facility] Comment on above: Result Comment: AMENDED REPORT 07/23/24 1038 BUN/CRE previously reported as: 18.4 RATIO Performed By: #### L 500.2500, L100.0100 ####[facility] [address] [place], [address] Creatinine [Mass/Vol] 1.7 mg/dL High 0.6-1.0 [facility] Comment on above: Result Comment: AMENDED REPORT 07/23/241558 CREAT,SERUM previously reported as: 1.6 H mg/dL Performed By: #### L 500.2500, L100.0100 ####[facility] [address] [place], [address] ECRCL 26.32 ml/min Normal [facility] Comment on above: Result Comment: AMENDED REPORT 07/23/241558 Estimated CRCL previously reported as: 27.97 ml/min Performed By: #### L 500.2500, L100.0100 ####[facility] [address] [place], [address] GFR/1.73 sq M.predicted among non-blacks MDRD (S/P/Bld) [Vol rate/Area] 32 mL/min/{1.73_m2} Low >60 [facility] Comment on above: Result Comment: mL/m in/1.73m2 CKD-EPI Creatinine Equation (2020) AMENDED REPORT 07/23/241558 EST GFR previously reported as: 35 LmL/min/1.73m2 CKD-EPI Creatinine Equation (2020) Performed By: #### L 500.2500, L100.0100 ####[facility] [address] [place], [address] Glucose [Mass/Vol] 80 mg/dL Normal 70-99 [facility] Comment on above: Result Comment: AMENDED REPORT 07/23/241558 GLU previously reported as: 78 mg/dL Performed By: #### L 500.2500, L100.0100 ####[facility] [address] [place], [address] Urea nitrogen [Mass/Vol] 32 mg/dL High 4-19 [facility] Comment on above: Result Comment: AMENDED REPORT 07/23/24 1559 BUN previously reported as: 30 H mg/dL Performed By: #### L 500.2500, L100.0100 ####[facility] [address] [place], [address] Bilirubin directOrdered By: Makenzie Montalvo on 07-23-2024 Bilirubin.direct [Mass/Vol] 0.11 mg/dL 0.00-0.30 [facility] Bilirubin.direct [Mass/Vol]O rdered By: Makenzie Montalvo on 07-23-2024 Bilirubin direct 0.11 mg/dL 0.00-0.30 [facility] CBC W/Diff, Automatedon 06-30 Absolute Lymph 0.61 X10 3/uL Low 0.83-4.51 [facility] Comment on above: Performed By: #### L 500.2500, L100.0100 ####[facility] [address] [place], [address] Absolute Neut 12.5 X10 3/uL High 2.0-7.7 [facility] Comment on above: Performed By: #### L 500.2500, L100.0100 ####[facility] [address] [place], [address] Basophils/100 WBC (Bld) 0.3 % Normal 0-1 [facility] Comment on above: Performed By: #### L 500.2500, L100.0100 ####[facility] [address] [place], [address] Eosinophils/100 WBC (Bld) 0.1 % Normal 0-5 [facility] Comment on above: Performed By: #### L 500.2500, L100.0100 ####[facility] [address] [place], [address] Erythrocyte distribution width (RBC) [Ratio] 17.2 % High 11.6-14.6 [facility] Comment on above: Performed By: #### L 500.2500, L100.0100 ####[facility] [address] [place], [address] Hematocrit (Bld) [Volume fraction] 30.1 % Low 37-47 [facility] Comment on above: Performed By: #### L 500.2500, L100.0100 ####[facility] [address] [place], [address] Hemoglobin (Bld) [Mass/Vol] 8.8 g/dL Low 12.0-15.0 [facility] Comment on above: Performed By: #### L 500.2500, L100.0100 ####[facility] [address] [place], [address] IG% 2.000 High 0.0-0.9 [facility] Comment on above: Result Comment: IG% - Immature Granulocytes (promyelocytes, myelocytes andmetamyelocytes) > 1% indicates that a LEFT SHIFT is Present. Performed By: #### L 500.2500, L100.0100 ####[facility] [address] [place], [address] Lymphocytes/100 WBC (Bld) 4.3 % Low 19-41 [facility] Comment on above: Performed By: #### L 500.2500, L100.0100 ####[facility] [address] [place], [address] MCH (RBC) [Entitic mass] 26.3 pg Low 27.0-32.0 [facility] Comment on above: Performed By: #### L 500.2500, L100.0100 ####[facility] [address] [place], [address] MCHC (RBC) [Mass/Vol] 29.2 g/dL Low 32-36 [facility] Comment on above: Performed By: #### L 500.2500, L100.0100 ####[facility] [address] [place], [address] MCV (RBC) [Entitic vol] 90.1 fL Normal 81-99 [facility] Comment on above: Performed By: #### L 500.2500, L100.0100 ####[facility] [address] [place], [address] Monocytes/100 WBC (Bld) 5.7 % Normal 0-10 [facility] Comment on above: Performed By: #### L 500.2500, L100.0100 ####[facility] [address] [place], [address] Neutrophils/100 WBC (Bld) 87.6 % High 47-70 [facility] Comment on above: Performed By: #### L 500.2500, L100.0100 ####[facility] [address] [place], [address] Nucleated RBC (Bld) [#/Vol] 0 10*3/uL Normal 0-5 [facility] Comment on above: Performed By: #### L 500.2500, L100.0100 ####[facility] [address] [place], [address] Platelet mean volume (Bld) [Entitic vol] 8.9 fL Normal 6.2-12.0 [facility] Comment on above: Performed By: #### L 500.2500, L100.0100 ####[facility] [address] [place], [address] Platelets (Bld) [#/Vol] 347 10*3/uL Normal 150-450 [facility] Comment on above: Performed By: #### L 500.2500, L100.0100 ####[facility] [address] [place], [address] RBC (Bld) [#/Vol] 3.34 10*6/uL Low 4.2-5.4 [facility] Comment on above: Performed By: #### L 500.2500, L100.0100 ####[facility] [address] [place], [address] RDW SD 55.6 fl High 35.1-43.9 [facility] Comment on above: Performed By: #### L 500.2500, L100.0100 ####[facility] [address] [place], [address] WBC (Bld) [#/Vol] 14.3 10*3/uL High 4.4-11.0 [facility] Comment on above: Performed By: #### L 500.2500, L100.0100 ####[facility] [address] [place], [address] Chloride [Moles/Vol]Ordered By: Makenzie Montalvo on 07-23-2024 Serum or plasma chloride measurement (moles/volume) 98 mmol/L 98-107 [facility] Emergency Department Summary on 07-23-2024 Emergency Department Summary Normal [facility] H AND P Exam - [facility] 07-23-2024 H&P Exam - Hospitalist Normal [facility] Liver Profileon 07-23-2024 Albumin [Mass/Vol] 2.7 g/dL Low 3.4-4.8 [facility] Comment on above: Performed By: #### L 500.3400 ####[facility] [address] [place], [address] ALK PHOS 50 U/L Normal 35-104 [facility] Comment on above: Performed By: #### L 500.3400 ####[facility] [address] [place], [address] ALT [Catalytic activity/Vol] 13 U/L Normal <=34 [facility] Comment on above: Performed By: #### L 500.3400 ####[facility] [address] [place], [address] AST [Catalytic activity/Vol] 23 U/L Normal <=31 [facility] Comment on above: Result Comment: Hemo lysis present, Results??could be affected.?? Performed By: #### L 500.3400 ####[facility] [address] [place], [address] Bilirubin [Mass/Vol] 0.30 mg/dL Normal 0.00-1.30 [facility] Comment on above: Performed By: #### L 500.3400 ####[facility] [address] [place], [address] Bilirubin.direct [Mass/Vol] 0.11 mg/dL Normal 0.00-0.30 [facility] Comment on above: Result Comment: Hemo lysis present, Results??could be affected.?? Performed By: #### L 500.3400 ####[facility] [address] [place], [address] Globulin (S) [Mass/Vol] 3.7 g/dL Normal 2.2-4.2 [facility] Comment on above: Performed By: #### L 500.3400 ####[facility] [address] [place], [address] T PROT 6.3 g/dL Normal 5.9-8.4 [facility] Comment on above: Performed By: #### L 500.3400 ####[facility] [address] [place], [address] MR/CON.PCM.GIon 07-23-2024 MR/CON.PCM.GI Normal [facility] Serum or plasma chloride claudio surement (moles/volume)Ordered By: Makenzie Montlavo on 07-23-2024 Chloride [Moles/Vol] 98 mmol/L 98-107 [facility] Stool Occult Blood iFOBon STOB Negative Normal [facility] Comment on above: Performed By: #### M 100.7900 ####[facility] [address] [place], [address] Stool gastrointestinal hemog lobin detection by immunologic methodOrdered By: Makenzie Montalvo on 07-23-2024 Lower GI hemoglobin IA Ql (Stl) [facility] Urinalysis, Completeon 07-23 BACTERIA Normal None Seen [facility] Comment on above: Order Comment: COLLE CTOR TO SPECIFY Result Comment: PT D ISCHARGED Performed By: #### L 400.0001 ####[facility] [address] [place], [address] BILIRUBIN URINE Normal Negative [facility] Comment on above: Order Comment: COLLE CTOR TO SPECIFY Result Comment: PT D ISCHARGED Performed By: #### L 400.0001 ####[facility] [address] [place], [address] Clarity (U) Normal Clear [facility] Comment on above: Order Comment: ADWOA CTOR TO SPECIFY Result Comment: PT D ISCHARGED Performed By: #### L 400.0001 ####[facility] [address] [place], [address] Color (U) Normal Yellow [facility] Comment on above: Order Comment: ADWOA CTOR TO SPECIFY Result Comment: PT D ISCHARGED Performed By: #### L 400.0001 ####[facility] [address] [place], [address] EPI,SQUAMOUS Normal 5-10 [facility] Comment on above: Order Comment: ADWOA CTOR TO SPECIFY Result Comment: PT D ISCHARGED Performed By: #### L 400.0001 ####[facility] [address] [place], [address] GLUCOSE, UR Normal Normal [facility] Comment on above: Order Comment: ADWOA CTOR TO SPECIFY Result Comment: PT D ISCHARGED Performed By: #### L 400.0001 ####[facility] [address] [place], [address] KETONE UR Normal Negative [facility] Comment on above: Order Comment: COLLE CTOR TO SPECIFY Result Comment: PT D ISCHARGED Performed By: #### L 400.0001 ####[facility] [address] [place], [address] LEUK ESTERASE Normal Negative [facility] Comment on above: Order Comment: COLLE CTOR TO SPECIFY Result Comment: PT D ISCHARGED Performed By: #### L 400.0001 ####[facility] [address] [place], [address] Mucus Ql (Urine sed) Normal [facility] Comment on above: Order Comment: COLLE CTOR TO SPECIFY Result Comment: PT D ISCHARGED Performed By: #### L 400.0001 ####[facility] [address] [place], [address] Nitrite Ql (U) Normal Negative [facility] Comment on above: Order Comment: COLLE CTOR TO SPECIFY Result Comment: PT D ISCHARGED Performed By: #### L 400.0001 ####[facility] [address] [place], [address] OCCULT BLOOD-UR Normal Negative [facility] Comment on above: Order Comment: COLLE CTOR TO SPECIFY Result Comment: PT D ISCHARGED Performed By: #### L 400.0001 ####[facility] [address] [place], [address] pH UR Normal 5.0 - 8.0 [facility] Comment on above: Order Comment: ADWOA CTOR TO SPECIFY Result Comment: PT D ISCHARGED Performed By: #### L 400.0001 ####[facility] [address] [place], [address] PROT DIPSTX Normal Negative [facility] Comment on above: Order Comment: COLLE CTOR TO SPECIFY Result Comment: PT D ISCHARGED Performed By: #### L 400.0001 ####[facility] [address] [place], [address] RBC Normal 0-5 [facility] Comment on above: Order Comment: COLLE CTOR TO SPECIFY Result Comment: PT D ISCHARGED Performed By: #### L 400.0001 ####[facility] [address] [place], [address] SP.GR. DIPSTX Normal 1.002-1.03 0 [facility] Comment on above: Order Comment: COLLE CTOR TO SPECIFY Result Comment: PT D ISCHARGED Performed By: #### L 400.0001 ####[facility] [address] [place], [address] UR Preservative Normal [facility] Comment on above: Order Comment: COLLE CTOR TO SPECIFY Result Comment: PT D ISCHARGED Performed By: #### L 400.0001 ####[facility] [address] [place], [address] UROBILI Normal Normal [facility] Comment on above: Order Comment: COLLE CTOR TO SPECIFY Result Comment: PT D ISCHARGED Performed By: #### L 400.0001 ####[facility] [address] [place], [address] WBC Normal 0-5 [facility] Comment on above: Order Comment: COLLE CTOR TO SPECIFY Result Comment: PT D ISCHARGED Performed By: #### L 400.0001 ####[facility] [address] [place], [address] 12 Lead EKGon 07-18-2024 12 Lead EKG Normal [facility] ALP [Catalytic activity/Vol] Ordered By: Sheldon Toribio on 07-18-2024 Serum or plasma alkaline phosphatase measurement 48 U/L 45-117 [facility] ALT [Catalytic activity/Vol] Ordered By: Sheldon Toribio on 07-18-2024 Serum or plasma alanine aminotransferase (ALT) measurement 14 U/L 13-56 [facility] Absolute lymphocyte countOrd ered By: Sheldon Toribio on 07-18-2024 Lymphocytes Auto (Unsp spec) [#/Vol] 0.54 10*3/uL Low 0.83-4.51 [facility] Absolute neutrophil countOrd ered By: Sheldon Toribio on 07-18-2024 Absolute neutrophil count 6.7 X10^3/uL 2.0-7.7 [facility] Albumin [Mass/Vol]Ordered By : Sheldon Toribio on 07-18-2024 Serum or plasma albumin measurement (mass/volume) 2.0 g/dL Low 3.2-5.0 [facility] Albumin to globulin ratioOrd ered By: Sheldon Toribio on 07-18-2024 Albumin to globulin ratio 0.4 RATIO Low 0.9-2.4 [facility] Antigen C Gammacloneon 07-18 ANTIGEN ID Negative Normal [facility] Comment on above: Performed By: #### B AGC ####[facility] [address] [place], [address] Performed By: #### B AGK ####[facility] [address] [place], [address] Antigen E Gammacloneon 07-18 ANTIGEN ID Positive Normal [facility] Comment on above: Performed By: #### B AGE ####[facility] [address] [place], [address] Antigen Fyaon 07-18-2024 ANTIGEN ID Negative Normal [facility] Comment on above: Performed By: #### B AGFYA ####[facility] [address] [place], [address] Automated lymphocyte count a s percentage of total leukocytesOrdered By: Sheldon Toribio on 07-18-2024 Lymphocytes/100 WBC Auto (Unsp spec) 6.6 % Low 19-41 [facility] [id number] 07-18-2024 ANTIBODY ID Normal [facility] Comment on above: Order Comment: AN Result Comment: CFYA WARM Performed By: #### L 100.0100, L503.6005, BTS, L500.4050, [id number], L501.4020 ####[facility] [address] [place], [address] Base excess Calc (BldV) [Mol es/Vol]Ordered By: Sheldon Toribio on 07-18-2024 Blood base excess determination 10 mmol/L High -2-2 [facility] Basophil percentageOrdered B y: Sheldon Toribio on 07-18-2024 Basophils/100 WBC (Bld) 0.2 % 0-1 [facility] Basophil percentage 0.2 % 0-1 [facility] Bilirubin, totalOrdered By: Sheldon Toribio on 07-18-2024 Bilirubin [Mass/Vol] 0.30 mg/dL 0.20-1.00 [facility] Bilirubin, total 0.30 mg/dL 0.20-1.00 [facility] Blood Gases by CPSon 025 Base excess Calc (Bld) [Moles/Vol] 10 mmol/L High -2 to +2 [facility] Comment on above: Performed By: #### L 9000.0800 ####[facility] [address] [place], [address] Blood Gas Type ART Normal [facility] Comment on above: Performed By: #### L 9000.0800 ####[facility] [address] [place], [address] CO2 [Moles/Vol] 35 mmol/L Normal [facility] Comment on above: Performed By: #### L 9000.0800 ####[facility] [address] [place], [address] FI02 3.0 Normal [facility] Comment on above: Performed By: #### L 9000.0800 ####[facility] [address] [place], [address] HCO3 (Bld) [Moles/Vol] 33.3 mmol/L High 22-26 [facility] Comment on above: Performed By: #### L 9000.0800 ####[facility] [address] [place], [address] Mode Not entered Normal [facility] Comment on above: Performed By: #### L 0.0800 ####[facility] [address] [place], [address] O2 Delivery Dev Cannula Normal [facility] Comment on above: Performed By: #### L 8999.0800 ####[facility] [address] [place], [address] pCO2 42.4 mmHg Normal 35-45 [facility] Comment on above: Performed By: #### L 8999.0800 ####[facility] [address] [place], [address] pH (Bld) 7.50 [pH] High 7.35-7.45 [facility] Comment on above: Performed By: #### L 0.0800 ####[facility] [address] [place], [address] PO2 82 mmHG Normal 75-100 [facility] Comment on above: Performed By: #### L 8999.0800 ####[facility] [address] [place], [address] SITE L Brach Normal [facility] Comment on above: Performed By: #### L 8999.0800 ####[facility] [address] [place], [address] SO2 97 Normal 95-99 [facility] Comment on above: Performed By: #### L 8999.0800 ####[facility] [address] [place], [address] Blood base excess determinat ionOrdered By: Sheldon Toribio on 07-18-2024 Base excess Calc (BldV) [Moles/Vol] 10 mmol/L High -2-2 [facility] Blood bicarbonate measuremen tOrdered By: Sheldon Toribio on 07-18-2024 HCO3 (Bld) [Moles/Vol] 33.3 mmol/L High - [facility] Blood bicarbonate measurement 33.3 mmol/L High [facility] Blood urea nitrogen (BUN)/cr eatinine ratioOrdered By: Sheldon Toribio on 07-18-2024 Blood urea nitrogen (BUN)/creatinine ratio 14.8 RATIO 03-17 [facility] CBC W/Diff, Automatedon 06-30 Absolute Lymph 0.54 X10 3/uL Low 0.83-4.51 [facility] Comment on above: Performed By: #### L 100.0100, L503.6005, BTS, L500.4050, BAQF1757, L501.4020 ####[facility] [address] [place], [address] Absolute Neut 6.7 X10 3/uL Normal 2.0-7.7 [facility] Comment on above: Performed By: #### L 100.0100, L503.6005, BTS, L500.4050, EPZN2989, L501.4020 ####[facility] [address] [place], [address] Basophils/100 WBC (Bld) 0.2 % Normal 0-1 [facility] Comment on above: Performed By: #### L 100.0100, L503.6005, BTS, L500.4050, PTGE9706, L501.4020 ####[facility] [address] [place], [address] Eosinophils/100 WBC (Bld) 0.7 % Normal 0-5 [facility] Comment on above: Performed By: #### L 100.0100, L503.6005, BTS, L500.4050, XNHH6590, L501.4020 ####[facility] [address] [place], [address] Erythrocyte distribution width (RBC) [Ratio] 16.8 % High 11.6-14.6 [facility] Comment on above: Performed By: #### L 100.0100, L503.6005, BTS, L500.4050, VTSW9150, L501.4020 ####[facility] [address] [place], [address] Hematocrit (Bld) [Volume fraction] 32.7 % Low 37-47 [facility] Comment on above: Performed By: #### L 100.0100, L503.6005, BTS, L500.4050, XTGL6214, L501.4020 ####[facility] [address] [place], [address] Hemoglobin (Bld) [Mass/Vol] 9.7 g/dL Low 12.0-15.0 [facility] Comment on above: Performed By: #### L 100.0100, L503.6005, BTS, L500.4050, PJAA0493, L501.4020 ####[facility] [address] [place], [address] IG% 1.700 High 0.0-0.9 [facility] Comment on above: Result Comment: IG% - Immature Granulocytes (promyelocytes, myelocytes andmetamyelocytes) > 1% indicates that a LEFT SHIFT is Present. Performed By: #### L 100.0100, L503.6005, BTS, L500.4050, KKUR1292, L501.4020 ####[facility] [address] [place], [address] Lymphocytes/100 WBC (Bld) 6.6 % Low 19-41 [facility] Comment on above: Performed By: #### L 100.0100, L503.6005, BTS, L500.4050, GJQB3011, L501.4020 ####[facility] [address] [place], [address] MCH (RBC) [Entitic mass] 26.6 pg Low 27.0-32.0 [facility] Comment on above: Performed By: #### L 100.0100, L503.6005, BTS, L500.4050, CQYL3408, L501.4020 ####[facility] [address] [place], [address] MCHC (RBC) [Mass/Vol] 29.7 g/dL Low 32-36 [facility] Comment on above: Performed By: #### L 100.0100, L503.6005, BTS, L500.4050, RCQG4063, L501.4020 ####[facility] [address] [place], [address] MCV (RBC) [Entitic vol] 89.6 fL Normal 81-99 [facility] Comment on above: Performed By: #### L 100.0100, L503.6005, BTS, L500.4050, BTEX5889, L501.4020 ####[facility] [address] [place], [address] Monocytes/100 WBC (Bld) 9.7 % Normal 0-10 [facility] Comment on above: Performed By: #### L 100.0100, L503.6005, BTS, L500.4050, KKJQ5757, L501.4020 ####[facility] [address] [place], [address] Neutrophils/100 WBC (Bld) 81.1 % High 47-70 [facility] Comment on above: Performed By: #### L 100.0100, L503.6005, BTS, L500.4050, UNTG6561, L501.4020 ####[facility] [address] [place], [address] Nucleated RBC (Bld) [#/Vol] 0 10*3/uL Normal 0-5 [facility] Comment on above: Performed By: #### L 100.0100, L503.6005, BTS, L500.4050, QSSA9188, L501.4020 ####[facility] [address] [place], [address] Platelet mean volume (Bld) [Entitic vol] 9.0 fL Normal 6.2-12.0 [facility] Comment on above: Performed By: #### L 100.0100, L503.6005, BTS, L500.4050, QCSY3231, L501.4020 ####[facility] [address] [place], [address] Platelets (Bld) [#/Vol] 281 10*3/uL Normal 150-450 [facility] Comment on above: Performed By: #### L 100.0100, L503.6005, BTS, L500.4050, TDDG5883, L501.4020 ####[facility] [address] [place], [address] RBC (Bld) [#/Vol] 3.65 10*6/uL Low 4.2-5.4 [facility] Comment on above: Performed By: #### L 100.0100, L503.6005, BTS, L500.4050, CBZT3607, L501.4020 ####[facility] [address] [place], [address] RDW SD 54.5 fl High 35.1-43.9 [facility] Comment on above: Performed By: #### L 100.0100, L503.6005, BTS, L500.4050, JABJ5795, L501.4020 ####[facility] [address] [place], [address] WBC (Bld) [#/Vol] 8.2 10*3/uL Normal 4.4-11.0 [facility] Comment on above: Performed By: #### L 100.0100, L503.6005, BTS, L500.4050, FBEL1128, L501.4020 ####[facility] [address] [place], [address] CTA Abd/Pelvis W/WO Contrast on 07-18-2024 CTA Abd/Pelvis W/WO Contrast Normal [facility] Calcium [Mass/Vol]Ordered By : Sheldon Toribio on 07-18-2024 Serum or plasma calcium measurement (mass/volume) 8.7 mg/dL 8.5-10.1 [facility] Carbon dioxide measurementOr dered By: Sheldon Toribio on 07-18-2024 CO2 [Moles/Vol] 34.0 mmol/L High 21.0-32.0 [facility] Carbon dioxide measurement 34.0 mmol/L High 21.0-32.0 [facility] Chloride measurementOrdered By: Sheldon Toribio on 07-18-2024 Chloride [Moles/Vol] 97 mmol/L Low 98-107 [facility] Chloride measurement 97 mmol/L Low 98-107 [facility] Comprehensive Metabolic Prof ilon 07-18-2024 Albumin [Mass/Vol] 2.0 g/dL Low 3.2-5.0 [facility] Comment on above: Order Comment: 'TROP ' Serial specimen #1, #2 or #3: 1 Performed By: #### L 100.0100, L503.6005, BTS, L500.4050, [id number], L501.4020 ####[facility] [address] [place], [address] Albumin/Globulin [Mass ratio] 0.4 {ratio} Low 0.9-2.4 [facility] Comment on above: Order Comment: 'TROP ' Serial specimen #1, #2 or #3: 1 Performed By: #### L 100.0100, L503.6005, BTS, L500.4050, CAOT7652, L501.4020 ####[facility] [address] [place], [address] ALK P 48 U/L Normal 45-117 [facility] Comment on above: Order Comment: 'TROP ' Serial specimen #1, #2 or #3: 1 Performed By: #### L 100.0100, L503.6005, BTS, L500.4050, ICWU4835, L501.4020 ####[facility] [address] [place], [address] ALT [Catalytic activity/Vol] 14 U/L Normal 13-56 [facility] Comment on above: Order Comment: 'TROP ' Serial specimen #1, #2 or #3: 1 Performed By: #### L 100.0100, L503.6005, BTS, L500.4050, ODTD9657, L501.4020 ####[facility] [address] [place], [address] AST [Catalytic activity/Vol] 18 U/L Normal 15-37 [facility] Comment on above: Order Comment: 'TROP ' Serial specimen #1, #2 or #3: 1 Performed By: #### L 100.0100, L503.6005, BTS, L500.4050, YZMV4297, L501.4020 ####[facility] [address] [place], [address] Bilirubin [Mass/Vol] 0.30 mg/dL Normal 0.20-1.00 [facility] Comment on above: Order Comment: 'TROP ' Serial specimen #1, #2 or #3: 1 Result Comment: For patients on eltrombopag therapy, use of Dimension [place] TBIL is not recommended. Performed By: #### L 100.0100, L503.6005, BTS, L500.4050, EGUX0386, L501.4020 ####[facility] [address] [place], [address] BUN/CRE 14.8 RATIO Normal 10-20 [facility] Comment on above: Order Comment: 'TROP ' Serial specimen #1, #2 or #3: 1 Performed By: #### L 100.0100, L503.6005, BTS, L500.4050, YJVK1046, L501.4020 ####[facility] [address] [place], [address] CA,Total 8.7 mg/dL Normal 8.5-10.1 [facility] Comment on above: Order Comment: 'TROP ' Serial specimen #1, #2 or #3: 1 Performed By: #### L 100.0100, L503.6005, BTS, L500.4050, PGET0763, L501.4020 ####[facility] [address] [place], [address] Chloride [Moles/Vol] 97 mmol/L Low 98-107 [facility] Comment on above: Order Comment: 'TROP ' Serial specimen #1, #2 or #3: 1 Performed By: #### L 100.0100, L503.6005, BTS, L500.4050, FXGY2052, L501.4020 ####[facility] [address] [place], [address] CO2 [Moles/Vol] 34.0 mmol/L High 21.0-32.0 [facility] Comment on above: Order Comment: 'TROP ' Serial specimen #1, #2 or #3: 1 Performed By: #### L 100.0100, L503.6005, BTS, L500.4050, ZYPK0444, L501.4020 ####[facility] [address] [place], [address] Creatinine [Mass/Vol] 1.69 mg/dL High 0.55-1.02 [facility] Comment on above: Order Comment: 'TROP ' Serial specimen #1, #2 or #3: 1 Result Comment: The validity of the calculated GFR GFRAA in patients over70 years has not been determined. Clinical correlation isessential. Performed By: #### L 100.0100, L503.6005, BTS, L500.4050, WZLU4575, L501.4020 ####[facility] [address] [place], [address] ECRCL 26.75 ml/min Normal [facility] Comment on above: Order Comment: 'TROP ' Serial specimen #1, #2 or #3: 1 Performed By: #### L 100.0100, L503.6005, BTS, L500.4050, KIVT5338, L501.4020 ####[facility] [address] [place], [address] EST GFR - AA 39 mL/min Low >60 [facility] Comment on above: Order Comment: 'TROP ' Serial specimen #1, #2 or #3: 1 Result Comment: Afri can Nauruan GFR Calc Performed By: #### L 100.0100, L503.6005, BTS, L500.4050, QKSK5895, L501.4020 ####[facility] [address] [place], [address] GAP 4 Low 5-15 [facility] Comment on above: Order Comment: 'TROP ' Serial specimen #1, #2 or #3: 1 Performed By: #### L 100.0100, L503.6005, BTS, L500.4050, UBZC2223, L501.4020 ####[facility] [address] [place], [address] GFR/1.73 sq M.predicted among non-blacks MDRD (S/P/Bld) [Vol rate/Area] 33 mL/min/{1.73_m2} Low >60 [facility] Comment on above: Order Comment: 'TROP ' Serial specimen #1, #2 or #3: 1 Result Comment: Non- GFR Calc Performed By: #### L 100.0100, L503.6005, BTS, L500.4050, LWCJ3011, L501.4020 ####[facility] [address] [place], [address] Globulin (S) [Mass/Vol] 5.1 g/dL High 2.2-4.2 [facility] Comment on above: Order Comment: 'TROP ' Serial specimen #1, #2 or #3: 1 Performed By: #### L 100.0100, L503.6005, BTS, L500.4050, QSIK5377, L501.4020 ####[facility] [address] [place], [address] Glucose [Mass/Vol] 89 mg/dL Normal 74-106 [facility] Comment on above: Order Comment: 'TROP ' Serial specimen #1, #2 or #3: 1 Performed By: #### L 100.0100, L503.6005, BTS, L500.4050, IXGE9903, L501.4020 ####[facility] [address] [place], [address] Potassium [Moles/Vol] 4.1 mmol/L Normal 3.5-5.1 [facility] Comment on above: Order Comment: 'TROP ' Serial specimen #1, #2 or #3: 1 Performed By: #### L 100.0100, L503.6005, BTS, L500.4050, YMLW0433, L501.4020 ####[facility] [address] [place], [address] Sodium [Moles/Vol] 135 mmol/L Low 136-145 [facility] Comment on above: Order Comment: 'TROP ' Serial specimen #1, #2 or #3: 1 Performed By: #### L 100.0100, L503.6005, BTS, L500.4050, QRQY8648, L501.4020 ####[facility] [address] [place], [address] T PROT 7.1 g/dL Normal 6.4-8.2 [facility] Comment on above: Order Comment: 'TROP ' Serial specimen #1, #2 or #3: 1 Performed By: #### L 100.0100, L503.6005, BTS, L500.4050, MCZN2596, L501.4020 ####[facility] [address] [place], [address] Urea nitrogen [Mass/Vol] 25 mg/dL High 7-18 [facility] Comment on above: Order Comment: 'TROP ' Serial specimen #1, #2 or #3: 1 Performed By: #### L 100.0100, L503.6005, BTS, L500.4050, [id number], L501.4020 ####[facility] [id number] [place], [address] Creatinine [Mass/Vol]Ordered By: Sheldon Toribio on 07-18-2024 Serum or plasma creatinine measurement (mass/volume) 1.69 mg/dL High 0.55-1.02 [facility] Determination of fraction of inspired oxygenOrdered By: Sheldongeorge Toribio on 07-18-2024 Determination of fraction of inspired oxygen 3.0 [facility] Emergency Department Summary on 07-18-2024 Emergency Department Summary Normal [facility] Eosinophil percentageOrdered By: Sheldongeorge Toribio on 07-18-2024 Eosinophils/100 WBC (Bld) 0.7 % 0-5 [facility] Eosinophil percentage 0.7 % 0-5 [facility] Erythrocyte distribution wid th (RBC) [Ratio]Ordered By: Sheldon Toribio on 07-18-2024 Erythrocyte distribution width ratio 16.8 % High 11.6-14.6 [facility] Erythrocyte distribution wid th ratioOrdered By: Sheldongeorge Toribio on 07-18-2024 Erythrocyte distribution width (RBC) [Ratio] 16.8 % High 11.6-14.6 [facility] Erythrocyte distribution wid th standard deviationOrdered By: Sheldongeorge Toribio on 07-18-2024 Erythrocyte distribution width (RBC) [Ratio] 54.5 fl High 35.1-43.9 [facility] Erythrocyte distribution width standard deviation 54.5 fl High 35.1-43.9 [facility] Estimated glomerular filtrat ion rate (GFR) AmericanOrdered By: Sheldon Toribio on 07-18-2024 Estimated glomerular filtration rate (GFR) 39 mL/min Low >60 [facility] Estimation of creatinine austen aranceOrdered By: Sheldon Toribio on 07-18-2024 Estimation of creatinine clearance 26.75 ml/min [facility] Gastroenterology Visit Repor ton 07-18-2024 Gastroenterology Visit Report Normal [facility] Glomerular filtration rate ( GFR) estimationOrdered By: Sheldon Toribio on 07-18-2024 GFR/1.73 sq M.predicted among non-blacks MDRD (S/P/Bld) [Vol rate/Area] 33 mL/min/{1.73_m2} Low >60 [facility] Glomerular filtration rate (GFR) estimation 33 mL/min Low >60 [facility] Glucose measurementOrdered B y: Sheldon Toribio on 07-18-2024 Glucose [Mass/Vol] 89 mg/dL 74-106 [facility] Glucose measurement 89 mg/dL 74-106 [facility] Hematocrit Auto (Bld) [Volum e fraction]Ordered By: Sheldon Toribio on 07-18-2024 Hematocrit (Bld) [Volume fraction] 32.7 % Low 37-47 [facility] Automated blood hematocrit (percentage) 32.7 % Low 37-47 [facility] Hemoglobin measurementOrdere d By: Sheldon Toribio on 07-18-2024 Hemoglobin (Bld) [Mass/Vol] 9.7 g/dL Low 12.0-15.0 [facility] Hemoglobin measurement 9.7 g/dL Low 12.0-15.0 [facility] Immature granulocytes/100 WB C Auto (Bld)Ordered By: Sheldon Toribio on 07-18-2024 Immature granulocytes/100 WBC (Bld) 1.700 % High 0.0-0.9 [facility] Automated immature granulocyte percentage 1.700 % High 0.0-0.9 [facility] L501.4020on 07-18-2024 TROPONIN-I HS 24 pg/mL Normal 3.0-54.0 [facility] Comment on above: Order Comment: 'TROP ' Serial specimen #1, #2 or #3: 1 Result Comment: Jorge L patterson Note: New Test Units and Gender Specific Reference Ranges. For more information see Policy Stat Procedure [place] High Sensitivity Troponin (TNIH) and attachments. Performed By: #### L 100.0100, L503.6005, BTS, L500.4050, PFTC3602, L501.4020 ####[facility] [address] [place], [place], [address] Lactic Acidon 07-18-2024 Lactate [Moles/Vol] 1.3 mmol/L Normal 0.4-1.9 [facility] Comment on above: Order Comment: Y Performed By: #### L 100.0100, L503.6005, BTS, L500.4050, ETPS4859, L501.4020 ####[facility] [address] [place], [place], [id number] Lactic acid measurementOrder ed By: Sheldon Catarino on 07-18-2024 Lactic acid measurement 1.3 mmol/L 0.4-2.0 [facility] Lymphocytes Auto (Unsp spec) [#/Vol]Ordered By: Sheldon Toribio on 07-18-2024 Absolute lymphocyte count 0.54 X10^3/uL Low 0.83-4.51 [facility] Lymphocytes/100 WBC Auto (Un sp spec)Ordered By: Sheldon Toribio on 07-18-2024 Automated lymphocyte count as percentage of total leukocytes 6.6 % Low 19-41 [facility] MCV (RBC) [Entitic vol]Order ed By: Sheldon Toribio on 07-18-2024 MCV (mean corpuscular volume) determination 89.6 fL 81-99 [facility] MCV (mean corpuscular volume ) determinationOrdered By: Sheldon Toribio on 07-18-2024 MCV (RBC) [Entitic vol] 89.6 fL 81-99 [facility] Mean corpuscular hemoglobin (MCH) determinationOrdered By: Sheldon Toribio on 07-18-2024 MCH (RBC) [Entitic mass] 26.6 pg Low 27.0-32.0 [facility] Mean corpuscular hemoglobin (MCH) determination 26.6 pg Low 27.0-32.0 [facility] Mean corpuscular hemoglobin concentration (MCHC) determinationOrdered By: Sheldon Toribio on 07-18-2024 Mean corpuscular hemoglobin concentration (MCHC) determination 29.7 g/dL Low 32-36 [facility] Mean platelet volume determi nationOrdered By: Sheldon Toribio on 07-18-2024 Mean platelet volume determination 9.0 fl 6.2-12.0 [facility] Measurement, pHOrdered By: Gildardo Toribio on 07-18-2024 pH (Unsp spec) 7.50 [pH] High 7.35-7.45 [facility] Monocyte percentageOrdered B y: Sheldon Toribio on 07-18-2024 Monocytes/100 WBC (Bld) 9.7 % 0-10 [facility] Monocyte percentage 9.7 % 0-10 [facility] Neutrophil percentageOrdered By: Sheldon Toribio on 07-18-2024 Neutrophils/100 WBC (Bld) 81.1 % High 47-70 [facility] Neutrophil percentage 81.1 % High 47-70 [facility] No Panel InformationOrdered By: Sheldon Toribio on 07-18-2024 ART [facility] L Brach [facility] Not entered [facility] Cannula [facility] 18 U/L 15-37 [facility] Nucleated red blood cell per centageOrdered By: Sheldon Toribio on 07-18-2024 Nucleated red blood cell percentage 0 % 0-5 [facility] Oxygen saturation measuremen tOrdered By: Sheldon Toribio on 07-18-2024 Oxygen saturation measurement 97 % 95-99 [facility] Partial pressure of carbon d ioxide measurementOrdered By: Sheldon Toribio on 07-18-2024 Partial pressure of carbon dioxide measurement 42.4 mmHg 35-45 [facility] Partial pressure of oxygen m easurementOrdered By: Sheldon Toribio on 07-18-2024 Partial pressure of oxygen measurement 82 mmHG 75-100 [facility] Platelet countOrdered By: Savana Toribio on 07-18-2024 Platelets (Bld) [#/Vol] 281 10*3/uL 150-450 [facility] Platelet count 281 K/mm3 150-450 [facility] Potassium measurementOrdered By: Sheldon Toribio on 07-18-2024 Potassium [Moles/Vol] 4.1 mmol/L 3.5-5.1 [facility] Potassium measurement 4.1 mmol/L 3.5-5.1 [facility] RBC Auto (Bld) [#/Vol]Ordere d By: Sheldon Toribio on 07-18-2024 RBC (Bld) [#/Vol] 3.65 10*6/uL Low 4.2-5.4 [facility] Automated blood erythrocyte count 3.65 M/mm3 Low 4.2-5.4 [facility] Serum anion gap measurementO rdered By: Sheldon Toribio on 07-18-2024 Serum anion gap measurement 4 Low 5-15 [facility] Serum globulin measurementOr dered By: Sheldon Toribio on 07-18-2024 Globulin (S) [Mass/Vol] 5.1 g/dL High 2.2-4.2 [facility] Serum globulin measurement 5.1 g/dL High 2.2-4.2 [facility] Serum or plasma alanine camargo otransferase (ALT) measurementOrdered By: Sheldon Toribio on 07-18-2024 ALT [Catalytic activity/Vol] 14 U/L 13-56 [facility] Serum or plasma albumin megan urement (mass/volume)Ordered By: Sheldon Toribio on 07-18-2024 Albumin [Mass/Vol] 2.0 g/dL Low 3.2-5.0 [facility] Serum or plasma alkaline susan sphatase measurementOrdered By: Sheldon Toribio on 07-18-2024 ALP [Catalytic activity/Vol] 48 U/L 45-117 [facility] Serum or plasma calcium megan urement (mass/volume)Ordered By: Sheldon Toribio on 07-18-2024 Calcium [Mass/Vol] 8.7 mg/dL 8.5-10.1 [facility] Serum or plasma creatinine m easurement (mass/volume)Ordered By: Sheldon Toribio on 07-18-2024 Creatinine [Mass/Vol] 1.69 mg/dL High 0.55-1.02 [facility] Serum or plasma urea nitroge n measurement (mass/volume)Ordered By: Sheldon Toribio on 07-18-2024 Urea nitrogen [Mass/Vol] 25 mg/dL High 7-18 [facility] Sodium levelOrdered By: Sheldon Troibio on 07-18-2024 Sodium [Moles/Vol] 135 mmol/L Low 136-145 [facility] Sodium level 135 mmol/L Low 136-145 [facility] Total carbon dioxide measure mentOrdered By: Sheldon Toribio on 07-18-2024 CO2 [Moles/Vol] 35 mmol/L [facility] Total carbon dioxide measurement 35 mmol/L [facility] Total proteinOrdered By: Sheldon Toribio on 07-18-2024 Protein [Mass/Vol] 7.1 g/dL 6.4-8.2 [facility] Total protein 7.1 g/dL 6.4-8.2 [facility] Troponin IOrdered By: Sheldon hall on 07-18-2024 Troponin I 24 pg/mL 3.0-54.0 [facility] Troponin I 24 pg/mL 3.0-54.0 [facility] Type AND Screenon 07-18-2024 ABO and Rh group Nom (Bld) Blood group O Rh(D) positive Normal [facility] Comment on above: Order Comment: AN Performed By: #### L 100.0100, L503.6005, BTS, L500.4050, [id number], L501.4020 ####[facility] [address] [place], [address] Urea nitrogen [Mass/Vol]Orde red By: Sheldon Toribio on 07-18-2024 Serum or plasma urea nitrogen measurement (mass/volume) 25 mg/dL High 18 [facility] White blood cell (WBC) count Ordered By: Sheldon Toribio on 07-18-2024 WBC (Bld) [#/Vol] 8.2 10*3/uL 4.4-11.0 [facility] White blood cell (WBC) count 8.2 K/mm3 4.4-11.0 [facility] pH (Unsp spec)Ordered By: Savana Toribio on 07-18-2024 Measurement, pH 7.50 High 7.35-7.45 [facility] Absolute lymphocyte countOrd ered By: Millie Massey on 06-25-2024 Lymphocytes Auto (Unsp spec) [#/Vol] 0.69 10*3/uL Low 0.83-4.51 [facility] Absolute neutrophil countOrd ered By: Millie Massey on 06-25-2024 Absolute neutrophil count 2.8 X10^3/uL 2.0-7.7 [facility] Automated lymphocyte count a s percentage of total leukocytesOrdered By: Millie Massey on 06-25-2024 Lymphocytes/100 WBC Auto (Unsp spec) 15.6 % Low 19-41 [facility] Basic Metabolic Profile (BMP )on 06-25-2024 BUN/CRE 15.7 RATIO Normal 10-20 [facility] Comment on above: Order Comment: 103.1 Performed By: #### L 501.9520, L500.2500, L100.0100 ####[facility] [address] [place], [address] CA,Total 8.5 mg/dL Normal 8.5-10.1 [facility] Comment on above: Order Comment: 103.1 Performed By: #### L 501.9520, L500.2500, L100.0100 ####[facility] [address] [place], [address] Chloride [Moles/Vol] 104 mmol/L Normal 98-107 [facility] Comment on above: Order Comment: 103.1 Performed By: #### L 501.9520, L500.2500, L100.0100 ####[facility] [address] [place], [address] CO2 [Moles/Vol] 29.0 mmol/L Normal 21.0-32.0 [facility] Comment on above: Order Comment: 103.1 Performed By: #### L 501.9520, L500.2500, L100.0100 ####[facility] [address] [place], [address] Creatinine [Mass/Vol] 2.48 mg/dL High 0.55-1.02 [facility] Comment on above: Order Comment: 103.1 Result Comment: The validity of the calculated GFR GFRAA in patients over70 years has not been determined. Clinical correlation isessential. Performed By: #### L 501.9520, L500.2500, L100.0100 ####[facility] [address] [place], [address] EST GFR - AA 25 mL/min Low >60 [facility] Comment on above: Order Comment: 103.1 Result Comment: Afri can Nauruan GFR Calc Performed By: #### L 501.9520, L500.2500, L100.0100 ####[facility] [address] [place], [address] GAP 3 Low 5-15 [facility] Comment on above: Order Comment: 103.1 Performed By: #### L 501.9520, L500.2500, L100.0100 ####[facility] [address] [place], [address] GFR/1.73 sq M.predicted among non-blacks MDRD (S/P/Bld) [Vol rate/Area] 21 mL/min/{1.73_m2} Low >60 [facility] Comment on above: Order Comment: 103.1 Result Comment: Non- GFR Calc Performed By: #### L 501.9520, L500.2500, L100.0100 ####[facility] [address] [place], [address] Glucose [Mass/Vol] 84 mg/dL Normal 74-106 [facility] Comment on above: Order Comment: 103.1 Performed By: #### L 501.9520, L500.2500, L100.0100 ####[facility] [address] [place], [address] Potassium [Moles/Vol] 4.6 mmol/L Normal 3.5-5.1 [facility] Comment on above: Order Comment: 103.1 Performed By: #### L 501.9520, L500.2500, L100.0100 ####[facility] [address] [place], [address] Sodium [Moles/Vol] 136 mmol/L Normal 136-145 [facility] Comment on above: Order Comment: 103.1 Performed By: #### L 501.9520, L500.2500, L100.0100 ####[facility] [address] [place], [address] Urea nitrogen [Mass/Vol] 39 mg/dL High 7-18 [facility] Comment on above: Order Comment: 103.1 Performed By: #### L 501.9520, L500.2500, L100.0100 ####[facility] [address] [place], [address] Basophil percentageOrdered B y: Millie Massey on 06-25-2024 Basophils/100 WBC (Bld) 0.7 % 0-1 [facility] Basophil percentage 0.7 % 0-1 [facility] Blood urea nitrogen (BUN)/cr eatinine ratioOrdered By: Millie Massey on 06-25-2024 Blood urea nitrogen (BUN)/creatinine ratio 15.7 RATIO 10-20 [facility] CBC W/Diff, Automatedon - Absolute Lymph 0.69 X10 3/uL Low 0.83-4.51 [facility] Comment on above: Order Comment: 103.1 Performed By: #### L 501.9520, L500.2500, L100.0100 ####[facility] [address] [place], [address] Absolute Neut 2.8 X10 3/uL Normal 2.0-7.7 [facility] Comment on above: Order Comment: 103.1 Performed By: #### L 501.9520, L500.2500, L100.0100 ####[facility] [address] [place], [address] Basophils/100 WBC (Bld) 0.7 % Normal 0-1 [facility] Comment on above: Order Comment: 103.1 Performed By: #### L 501.9520, L500.2500, L100.0100 ####[facility] [address] [place], [address] Eosinophils/100 WBC (Bld) 3.2 % Normal 0-5 [facility] Comment on above: Order Comment: 103.1 Performed By: #### L 501.9520, L500.2500, L100.0100 ####[facility] [address] [place], [address] Erythrocyte distribution width (RBC) [Ratio] 16.0 % High 11.6-14.6 [facility] Comment on above: Order Comment: 103.1 Performed By: #### L 501.9520, L500.2500, L100.0100 ####[facility] [address] [place], [address] Hematocrit (Bld) [Volume fraction] 31.2 % Low 37-47 [facility] Comment on above: Order Comment: 103.1 Performed By: #### L 501.9520, L500.2500, L100.0100 ####[facility] [address] [place], [address] Hemoglobin (Bld) [Mass/Vol] 9.4 g/dL Low 12.0-15.0 [facility] Comment on above: Order Comment: 103.1 Performed By: #### L 501.9520, L500.2500, L100.0100 ####[facility] [address] [place], [address] IG% 2.900 High 0.0-0.9 [facility] Comment on above: Order Comment: 103.1 Result Comment: IG% - Immature Granulocytes (promyelocytes, myelocytes andmetamyelocytes) > 1% indicates that a LEFT SHIFT is Present. Performed By: #### L 501.9520, L500.2500, L100.0100 ####[facility] [address] [place], [address] Lymphocytes/100 WBC (Bld) 15.6 % Low 19-41 [facility] Comment on above: Order Comment: 103.1 Performed By: #### L 501.9520, L500.2500, L100.0100 ####[facility] [address] [place], [address] MCH (RBC) [Entitic mass] 27.1 pg Normal 27.0-32.0 [facility] Comment on above: Order Comment: 103.1 Performed By: #### L 501.9520, L500.2500, L100.0100 ####[facility] [address] [place], [address] MCHC (RBC) [Mass/Vol] 30.1 g/dL Low 32-36 [facility] Comment on above: Order Comment: 103.1 Performed By: #### L 501.9520, L500.2500, L100.0100 ####[facility] [address] [place], [address] MCV (RBC) [Entitic vol] 89.9 fL Normal 81-99 [facility] Comment on above: Order Comment: 103.1 Performed By: #### L 501.9520, L500.2500, L100.0100 ####[facility] [address] [place], [address] Monocytes/100 WBC (Bld) 13.8 % High 0-10 [facility] Comment on above: Order Comment: 103.1 Performed By: #### L 501.9520, L500.2500, L100.0100 ####[facility] [address] [place], [address] Neutrophils/100 WBC (Bld) 63.8 % Normal 47-70 [facility] Comment on above: Order Comment: 103.1 Performed By: #### L 501.9520, L500.2500, L100.0100 ####[facility] [address] [place], [address] Nucleated RBC (Bld) [#/Vol] 0 10*3/uL Normal 0-5 [facility] Comment on above: Order Comment: 103.1 Performed By: #### L 501.9520, L500.2500, L100.0100 ####[facility] [address] [place], [address] Platelet mean volume (Bld) [Entitic vol] 9.4 fL Normal 6.2-12.0 [facility] Comment on above: Order Comment: 103.1 Performed By: #### L 501.9520, L500.2500, L100.0100 ####[facility] [address] [place], [address] Platelets (Bld) [#/Vol] 142 10*3/uL Low 150-450 [facility] Comment on above: Order Comment: 103.1 Performed By: #### L 501.9520, L500.2500, L100.0100 ####[facility] [address] [place], [address] RBC (Bld) [#/Vol] 3.47 10*6/uL Low 4.2-5.4 [facility] Comment on above: Order Comment: 103.1 Performed By: #### L 501.9520, L500.2500, L100.0100 ####[facility] [address] [place], [address] RDW SD 52.8 fl High 35.1-43.9 [facility] Comment on above: Order Comment: 103.1 Performed By: #### L 501.9520, L500.2500, L100.0100 ####[facility] [address] [place], [address] WBC (Bld) [#/Vol] 4.4 10*3/uL Normal 4.4-11.0 [facility] Comment on above: Order Comment: 103.1 Performed By: #### L 501.9520, L500.2500, L100.0100 ####[facility] [address] [place], [address] Calcium [Mass/Vol]Ordered By : Millie Massey on 06-25-2024 Serum or plasma calcium measurement (mass/volume) 8.5 mg/dL 8.5-10.1 [facility] Carbon dioxide measurementOr dered By: Millie Massey on 06-25-2024 CO2 [Moles/Vol] 29.0 mmol/L 21.0-32.0 [facility] Carbon dioxide measurement 29.0 mmol/L 21.0-32.0 [facility] Chloride measurementOrdered By: Millie Massey on 06-25-2024 Chloride [Moles/Vol] 104 mmol/L 98-107 [facility] Chloride measurement 104 mmol/L 98-107 [facility] Creatinine [Mass/Vol]Ordered By: Millie Massey on 06-25-2024 Serum or plasma creatinine measurement (mass/volume) 2.48 mg/dL High 0.55-1.02 [facility] Eosinophil percentageOrdered By: Millie Massey on 06-25-2024 Eosinophils/100 WBC (Bld) 3.2 % 0-5 [facility] Eosinophil percentage 3.2 % 0-5 [facility] Erythrocyte distribution wid th (RBC) [Ratio]Ordered By: Millie Massey on 06-25-2024 Erythrocyte distribution width ratio 16.0 % High 11.6-14.6 [facility] Erythrocyte distribution wid th ratioOrdered By: Millie Massey on 06-25-2024 Erythrocyte distribution width (RBC) [Ratio] 16.0 % High 11.6-14.6 [facility] Erythrocyte distribution wid th standard deviationOrdered By: Millie Massey on 06-25-2024 Erythrocyte distribution width (RBC) [Ratio] 52.8 fl High 35.1-43.9 [facility] Erythrocyte distribution width standard deviation 52.8 fl High 35.1-43.9 [facility] Estimated glomerular filtrat ion rate (GFR) AmericanOrdered By: Millie Massey on 06-25-2024 Estimated glomerular filtration rate (GFR) 25 mL/min Low >60 [facility] Glomerular filtration rate ( GFR) estimationOrdered By: Millie Massey on 06-25-2024 GFR/1.73 sq M.predicted among non-blacks MDRD (S/P/Bld) [Vol rate/Area] 21 mL/min/{1.73_m2} Low >60 [facility] Glomerular filtration rate (GFR) estimation 21 mL/min Low >60 [facility] Glucose measurementOrdered B y: Millie Massey on 06-25-2024 Glucose [Mass/Vol] 84 mg/dL 74-106 [facility] Glucose measurement 84 mg/dL 74-106 [facility] Hematocrit Auto (Bld) [Volum e fraction]Ordered By: Millie Massey on 06-25-2024 Hematocrit (Bld) [Volume fraction] 31.2 % Low 37-47 [facility] Automated blood hematocrit (percentage) 31.2 % Low 37-47 [facility] Hemoglobin measurementOrdere d By: Millie Massey on 06-25-2024 Hemoglobin (Bld) [Mass/Vol] 9.4 g/dL Low 12.0-15.0 [facility] Hemoglobin measurement 9.4 g/dL Low 12.0-15.0 [facility] Immature granulocytes/100 WB C Auto (Bld)Ordered By: Millie Massey on 06-25-2024 Immature granulocytes/100 WBC (Bld) 2.900 % High 0.0-0.9 [facility] Automated immature granulocyte percentage 2.900 % High 0.0-0.9 [facility] Lymphocytes Auto (Unsp spec) [#/Vol]Ordered By: Millie Massey on 06-25-2024 Absolute lymphocyte count 0.69 X10^3/uL Low 0.83-4.51 [facility] Lymphocytes/100 WBC Auto (Un sp spec)Ordered By: Millie Massey on 06-25-2024 Automated lymphocyte count as percentage of total leukocytes 15.6 % Low 19-41 [facility] MCV (RBC) [Entitic vol]Order ed By: Millie Massey on 06-25-2024 MCV (mean corpuscular volume) determination 89.9 fL 81-99 [facility] MCV (mean corpuscular volume ) determinationOrdered By: Millie Massey on 06-25-2024 MCV (RBC) [Entitic vol] 89.9 fL 81-99 [facility] Mean corpuscular hemoglobin (MCH) determinationOrdered By: Millie Massey on 06-25-2024 MCH (RBC) [Entitic mass] 27.1 pg 27.0-32.0 [facility] Mean corpuscular hemoglobin (MCH) determination 27.1 pg 27.0-32.0 [facility] Mean corpuscular hemoglobin concentration (MCHC) determinationOrdered By: Millie Massey on 06-25-2024 Mean corpuscular hemoglobin concentration (MCHC) determination 30.1 g/dL Low 32-36 [facility] Mean platelet volume determi nationOrdered By: Millie Massey on 06-25-2024 Mean platelet volume determination 9.4 fl 6.2-12.0 [facility] Monocyte percentageOrdered B y: Millie Massey on 06-25-2024 Monocytes/100 WBC (Bld) 13.8 % High 0-10 [facility] Monocyte percentage 13.8 % High 0-10 [facility] Neutrophil percentageOrdered By: Millie Massey on 06-25-2024 Neutrophils/100 WBC (Bld) 63.8 % 47-70 [facility] Neutrophil percentage 63.8 % 47-70 [facility] Nucleated red blood cell per centageOrdered By: Millie Massey on 06-25-2024 Nucleated red blood cell percentage 0 % 0-5 [facility] Platelet countOrdered By: Carter Massey on 06-25-2024 Platelets (Bld) [#/Vol] 142 10*3/uL Low 150-450 [facility] Platelet count 142 K/mm3 Low 150-450 [facility] Potassium measurementOrdered By: Millie Massey on 06-25-2024 Potassium [Moles/Vol] 4.6 mmol/L 3.5-5.1 [facility] Potassium measurement 4.6 mmol/L 3.5-5.1 [facility] RBC Auto (Bld) [#/Vol]Ordere d By: Millie Massey on 06-25-2024 RBC (Bld) [#/Vol] 3.47 10*6/uL Low 4.2-5.4 [facility] Automated blood erythrocyte count 3.47 M/mm3 Low 4.2-5.4 [facility] Serum anion gap measurementO rdered By: Millie Massey on 06-25-2024 Serum anion gap measurement 3 Low 5-15 [facility] Serum or plasma calcium megan urement (mass/volume)Ordered By: Millie Massey on 06-25-2024 Calcium [Mass/Vol] 8.5 mg/dL 8.5-10.1 [facility] Serum or plasma creatinine m easurement (mass/volume)Ordered By: Millie Massey on 06-25-2024 Creatinine [Mass/Vol] 2.48 mg/dL High 0.55-1.02 [facility] Serum or plasma thyroid stim ulating hormone (TSH) measurement (units/volume)Ordered By: Millie Massey on 06-25-2024 TSH Qn 0.679 uIU/mL 0.358-3.74 0 [facility] Serum or plasma urea nitroge n measurement (mass/volume)Ordered By: Millie Massey on 06-25-2024 Urea nitrogen [Mass/Vol] 39 mg/dL High 7-18 [facility] Sodium levelOrdered By: Silvana Massey on 06-25-2024 Sodium [Moles/Vol] 136 mmol/L 136-145 [facility] Sodium level 136 mmol/L 136-145 [facility] TSH QnOrdered By: Millie little on 06-25-2024 Serum or plasma thyroid stimulating hormone (TSH) measurement (units/volume) 0.679 uIU/mL 0.358-3.74 0 [facility] Thyroid Stim Hormone (TSH)on 06-25-2024 TSH 0.679 uIU/mL Normal 0.358-3.74 0 [facility] Comment on above: Order Comment: 103.1 Performed By: #### L 501.9520, L500.2500, L100.0100 ####[facility] [address] [facility] [place], [place], [address] Urea nitrogen [Mass/Vol]Orde red By: Millie Massey on 06-25-2024 Serum or plasma urea nitrogen measurement (mass/volume) 39 mg/dL High 7-18 [facility] Urine Cultureon 06-25-2024 [facility] Normal [facility] Comment on above: Performed By: #### M 100.2200, L400.0001 ####[facility] [address] [facility] [place], [place], [address] White blood cell (WBC) count Ordered By: Millie Massey on 06-25-2024 WBC (Bld) [#/Vol] 4.4 10*3/uL 4.4-11.0 [facility] White blood cell (WBC) count 4.4 K/mm3 4.4-11.0 [facility] Absolute lymphocyte countOrd ered By: Millie Massey on 06-24-2024 Lymphocytes Auto (Unsp spec) [#/Vol] 0.73 10*3/uL Low 0.83-4.51 [facility] Absolute neutrophil countOrd ered By: Millie Massey on 06-24-2024 Absolute neutrophil count 3.9 X10^3/uL 2.0-7.7 [facility] Automated lymphocyte count a s percentage of total leukocytesOrdered By: Millie Massey on 06-24-2024 Lymphocytes/100 WBC Auto (Unsp spec) 13.7 % Low 19-41 [facility] Basic Metabolic Profile (BMP )on 06-24-2024 BUN/CRE 16.4 RATIO Normal 10-20 [facility] Comment on above: Order Comment: 103-1 Performed By: #### L 100.0100, L500.2500 ####[facility] [address] [place], [address] CA,Total 9.1 mg/dL Normal 8.5-10.1 [facility] Comment on above: Order Comment: 103-1 Performed By: #### L 100.0100, L500.2500 ####[facility] [address] [place], [address] Chloride [Moles/Vol] 104 mmol/L Normal 98-107 [facility] Comment on above: Order Comment: 103-1 Performed By: #### L 100.0100, L500.2500 ####[facility] [address] [place], [address] CO2 [Moles/Vol] 27.0 mmol/L Normal 21.0-32.0 [facility] Comment on above: Order Comment: 103-1 Performed By: #### L 100.0100, L500.2500 ####[facility] [address] [place], [address] Creatinine [Mass/Vol] 2.92 mg/dL High 0.55-1.02 [facility] Comment on above: Order Comment: 103-1 Result Comment: The validity of the calculated GFR GFRAA in patients over70 years has not been determined. Clinical correlation isessential. Performed By: #### L 100.0100, L500.2500 ####[facility] [address] [place], [address] EST GFR - AA 21 mL/min Low >60 [facility] Comment on above: Order Comment: 103-1 Result Comment: Afri can Nauruan GFR Calc Performed By: #### L 100.0100, L500.2500 ####[facility] [address] [place], [address] GAP 5 Normal 5-15 [facility] Comment on above: Order Comment: 103-1 Performed By: #### L 100.0100, L500.2500 ####[facility] [address] [place], [address] GFR/1.73 sq M.predicted among non-blacks MDRD (S/P/Bld) [Vol rate/Area] 17 mL/min/{1.73_m2} Low >60 [facility] Comment on above: Order Comment: 103-1 Result Comment: Non- GFR Calc Performed By: #### L 100.0100, L500.2500 ####[facility] [address] [place], [address] Glucose [Mass/Vol] 71 mg/dL Low 74-106 [facility] Comment on above: Order Comment: 103-1 Performed By: #### L 100.0100, L500.2500 ####[facility] [address] [place], [address] Potassium [Moles/Vol] 5.6 mmol/L High 3.5-5.1 [facility] Comment on above: Order Comment: 103-1 Performed By: #### L 100.0100, L500.2500 ####[facility] [address] [place], [address] Sodium [Moles/Vol] 137 mmol/L Normal 136-145 [facility] Comment on above: Order Comment: 103-1 Performed By: #### L 100.0100, L500.2500 ####[facility] [address] [place], [address] Urea nitrogen [Mass/Vol] 48 mg/dL High 7-18 [facility] Comment on above: Order Comment: 103-1 Performed By: #### L 100.0100, L500.2500 ####[facility] [address] [place], [address] Basophil percentageOrdered B y: Millie Massey on 06-24-2024 Basophils/100 WBC (Bld) 1.3 % High 0-1 [facility] Basophil percentage 1.3 % High 0-1 [facility] Blood urea nitrogen (BUN)/cr eatinine ratioOrdered By: Millie Massey on 06-24-2024 Blood urea nitrogen (BUN)/creatinine ratio 16.4 RATIO 10-20 [facility] CBC W/Diff, Automatedon 05-30 Absolute Lymph 0.73 X10 3/uL Low 0.83-4.51 [facility] Comment on above: Order Comment: 103-1 Performed By: #### L 100.0100, L500.2500 ####[facility] [address] [place], [address] Absolute Neut 3.9 X10 3/uL Normal 2.0-7.7 [facility] Comment on above: Order Comment: 103-1 Performed By: #### L 100.0100, L500.2500 ####[facility] [address] [place], [address] Basophils/100 WBC (Bld) 1.3 % High 0-1 [facility] Comment on above: Order Comment: 103-1 Performed By: #### L 100.0100, L500.2500 ####[facility] [address] [place], [address] Eosinophils/100 WBC (Bld) 2.6 % Normal 0-5 [facility] Comment on above: Order Comment: 103-1 Performed By: #### L 100.0100, L500.2500 ####[facility] [address] [place], [address] Erythrocyte distribution width (RBC) [Ratio] 15.9 % High 11.6-14.6 [facility] Comment on above: Order Comment: 103-1 Performed By: #### L 100.0100, L500.2500 ####[facility] [address] [place], [address] Hematocrit (Bld) [Volume fraction] 41.4 % Normal 37-47 [facility] Comment on above: Order Comment: 103-1 Performed By: #### L 100.0100, L500.2500 ####[facility] [address] [place], [address] Hemoglobin (Bld) [Mass/Vol] 12.8 g/dL Normal 12.0-15.0 [facility] Comment on above: Order Comment: 103-1 Performed By: #### L 100.0100, L500.2500 ####[facility] [address] [place], [address] IG% 2.100 High 0.0-0.9 [facility] Comment on above: Order Comment: 103-1 Result Comment: IG% - Immature Granulocytes (promyelocytes, myelocytes andmetamyelocytes) > 1% indicates that a LEFT SHIFT is Present. Performed By: #### L 100.0100, L500.2500 ####[facility] [address] [place], [address] Lymphocytes/100 WBC (Bld) 13.7 % Low 19-41 [facility] Comment on above: Order Comment: 103-1 Performed By: #### L 100.0100, L500.2500 ####[facility] [address] [place], [address] MCH (RBC) [Entitic mass] 27.9 pg Normal 27.0-32.0 [facility] Comment on above: Order Comment: 103-1 Performed By: #### L 100.0100, L500.2500 ####[facility] [address] [place], [address] MCHC (RBC) [Mass/Vol] 30.9 g/dL Low 32-36 [facility] Comment on above: Order Comment: 103-1 Performed By: #### L 100.0100, L500.2500 ####[facility] [address] [place], [address] MCV (RBC) [Entitic vol] 90.2 fL Normal 81-99 [facility] Comment on above: Order Comment: 103-1 Performed By: #### L 100.0100, L500.2500 ####[facility] [address] [place], [address] Monocytes/100 WBC (Bld) 7.7 % Normal 0-10 [facility] Comment on above: Order Comment: 103-1 Performed By: #### L 100.0100, L500.2500 ####[facility] [address] [place], [address] Neutrophils/100 WBC (Bld) 72.6 % High 47-70 [facility] Comment on above: Order Comment: 103-1 Performed By: #### L 100.0100, L500.2500 ####[facility] [address] [place], [address] Nucleated RBC (Bld) [#/Vol] 0 10*3/uL Normal 0-5 [facility] Comment on above: Order Comment: 103-1 Performed By: #### L 100.0100, L500.2500 ####[facility] [address] [place], [address] Platelet mean volume (Bld) [Entitic vol] 10.0 fL Normal 6.2-12.0 [facility] Comment on above: Order Comment: 103-1 Performed By: #### L 100.0100, L500.2500 ####[facility] [address] [place], [address] Platelets (Bld) [#/Vol] 170 10*3/uL Normal 150-450 [facility] Comment on above: Order Comment: 103-1 Performed By: #### L 100.0100, L500.2500 ####[facility] [address] [place], [address] RBC (Bld) [#/Vol] 4.59 10*6/uL Normal 4.2-5.4 [facility] Comment on above: Order Comment: 103-1 Performed By: #### L 100.0100, L500.2500 ####[facility] [address] [place], [address] RDW SD 52.3 fl High 35.1-43.9 [facility] Comment on above: Order Comment: 103-1 Performed By: #### L 100.0100, L500.2500 ####[facility] [address] [place], [address] WBC (Bld) [#/Vol] 5.3 10*3/uL Normal 4.4-11.0 [facility] Comment on above: Order Comment: 103-1 Performed By: #### L 100.0100, L500.2500 ####[facility] [address] [place], [address] Calcium [Mass/Vol]Ordered By : Millie Massey on 06-24-2024 Serum or plasma calcium measurement (mass/volume) 9.1 mg/dL 8.5-10.1 [facility] Carbon dioxide measurementOr dered By: Millie Massey on 06-24-2024 CO2 [Moles/Vol] 27.0 mmol/L 21.0-32.0 [facility] Carbon dioxide measurement 27.0 mmol/L 21.0-32.0 [facility] Chloride measurementOrdered By: Millie Massey on 06-24-2024 Chloride [Moles/Vol] 104 mmol/L 98-107 [facility] Chloride measurement 104 mmol/L 98-107 [facility] Creatinine [Mass/Vol]Ordered By: Millie Massey on 06-24-2024 Serum or plasma creatinine measurement (mass/volume) 2.92 mg/dL High 0.55-1.02 [facility] Eosinophil percentageOrdered By: Millie Massey on 06-24-2024 Eosinophils/100 WBC (Bld) 2.6 % 0-5 [facility] Eosinophil percentage 2.6 % 0-5 [facility] Erythrocyte distribution wid th (RBC) [Ratio]Ordered By: Millie Massey on 06-24-2024 Erythrocyte distribution width ratio 15.9 % High 11.6-14.6 [facility] Erythrocyte distribution wid th ratioOrdered By: Millie Massey on 06-24-2024 Erythrocyte distribution width (RBC) [Ratio] 15.9 % High 11.6-14.6 [facility] Erythrocyte distribution wid th standard deviationOrdered By: Millie Massey on 06-24-2024 Erythrocyte distribution width (RBC) [Ratio] 52.3 fl High 35.1-43.9 [facility] Erythrocyte distribution width standard deviation 52.3 fl High 35.1-43.9 [facility] Estimated glomerular filtrat ion rate (GFR) AmericanOrdered By: Millie Massey on 06-24-2024 Estimated glomerular filtration rate (GFR) 21 mL/min Low >60 [facility] Glomerular filtration rate ( GFR) estimationOrdered By: Millie Massey on 06-24-2024 GFR/1.73 sq M.predicted among non-blacks MDRD (S/P/Bld) [Vol rate/Area] 17 mL/min/{1.73_m2} Low >60 [facility] Glomerular filtration rate (GFR) estimation 17 mL/min Low >60 [facility] Glucose measurementOrdered B y: Millie Massey on 06-24-2024 Glucose [Mass/Vol] 71 mg/dL Low 74-106 [facility] Glucose measurement 71 mg/dL Low 74-106 [facility] Hematocrit Auto (Bld) [Volum e fraction]Ordered By: Millie Massey on 06-24-2024 Hematocrit (Bld) [Volume fraction] 41.4 % 37-47 [facility] Automated blood hematocrit (percentage) 41.4 % 37-47 [facility] Hemoglobin measurementOrdere d By: Millie Massey on 06-24-2024 Hemoglobin (Bld) [Mass/Vol] 12.8 g/dL 12.0-15.0 [facility] Hemoglobin measurement 12.8 g/dL 12.0-15.0 [facility] Immature granulocytes/100 WB C Auto (Bld)Ordered By: Millie Massey on 06-24-2024 Immature granulocytes/100 WBC (Bld) 2.100 % High 0.0-0.9 [facility] Automated immature granulocyte percentage 2.100 % High 0.0-0.9 [facility] Lymphocytes Auto (Unsp spec) [#/Vol]Ordered By: Millie Massey on 06-24-2024 Absolute lymphocyte count 0.73 X10^3/uL Low 0.83-4.51 [facility] Lymphocytes/100 WBC Auto (Un sp spec)Ordered By: Millie Massey on 06-24-2024 Automated lymphocyte count as percentage of total leukocytes 13.7 % Low 19-41 [facility] MCV (RBC) [Entitic vol]Order ed By: Millie Massey on 06-24-2024 MCV (mean corpuscular volume) determination 90.2 fL 81-99 [facility] MCV (mean corpuscular volume ) determinationOrdered By: Millie Massey on 06-24-2024 MCV (RBC) [Entitic vol] 90.2 fL 81-99 [facility] Mean corpuscular hemoglobin (MCH) determinationOrdered By: Millie Massey on 06-24-2024 MCH (RBC) [Entitic mass] 27.9 pg 27.0-32.0 [facility] Mean corpuscular hemoglobin (MCH) determination 27.9 pg 27.0-32.0 [facility] Mean corpuscular hemoglobin concentration (MCHC) determinationOrdered By: Millie Massey on 06-24-2024 Mean corpuscular hemoglobin concentration (MCHC) determination 30.9 g/dL Low 32-36 [facility] Mean platelet volume determi nationOrdered By: Millie Massey on 06-24-2024 Mean platelet volume determination 10.0 fl 6.2-12.0 [facility] Monocyte percentageOrdered B y: Millie Massey on 06-24-2024 Monocytes/100 WBC (Bld) 7.7 % 0-10 [facility] Monocyte percentage 7.7 % 0-10 [facility] Neutrophil percentageOrdered By: Millie Massey on 06-24-2024 Neutrophils/100 WBC (Bld) 72.6 % High 47-70 [facility] Neutrophil percentage 72.6 % High 47-70 [facility] Nucleated red blood cell per centageOrdered By: Millie Massey on 06-24-2024 Nucleated red blood cell percentage 0 % 0-5 [facility] Platelet countOrdered By: Carter Massey on 06-24-2024 Platelets (Bld) [#/Vol] 170 10*3/uL 150-450 [facility] Platelet count 170 K/mm3 150-450 [facility] Potassium measurementOrdered By: Millie Massey on 06-24-2024 Potassium [Moles/Vol] 5.6 mmol/L High 3.5-5.1 [facility] Potassium measurement 5.6 mmol/L High 3.5-5.1 [facility] RBC Auto (Bld) [#/Vol]Ordere d By: Millie Massey on 06-24-2024 RBC (Bld) [#/Vol] 4.59 10*6/uL 4.2-5.4 [facility] Automated blood erythrocyte count 4.59 M/mm3 4.2-5.4 [facility] Serum anion gap measurementO rdered By: Millie Massey on 06-24-2024 Serum anion gap measurement 5 5-15 [facility] Serum or plasma calcium megan urement (mass/volume)Ordered By: Millie Massey on 06-24-2024 Calcium [Mass/Vol] 9.1 mg/dL 8.5-10.1 [facility] Serum or plasma creatinine m easurement (mass/volume)Ordered By: Millie Massey on 06-24-2024 Creatinine [Mass/Vol] 2.92 mg/dL High 0.55-1.02 [facility] Serum or plasma urea nitroge n measurement (mass/volume)Ordered By: Millie Massey on 06-24-2024 Urea nitrogen [Mass/Vol] 48 mg/dL High 7-18 [facility] Sodium levelOrdered By: Silvana Massey on 06-24-2024 Sodium [Moles/Vol] 137 mmol/L 136-145 [facility] Sodium level 137 mmol/L 136-145 [facility] Urea nitrogen [Mass/Vol]Orde red By: Millie Massey on 06-24-2024 Serum or plasma urea nitrogen measurement (mass/volume) 48 mg/dL High 7-18 [facility] White blood cell (WBC) count Ordered By: Millie Massey on 06-24-2024 WBC (Bld) [#/Vol] 5.3 10*3/uL 4.4-11.0 [facility] White blood cell (WBC) count 5.3 K/mm3 4.4-11.0 [facility] Urinalysis, Completeon 06-22 BACTERIA 4+ /hpf Normal None Seen [facility] Comment on above: Order Comment: Urine , Random Performed By: #### M 100.2200, L400.0001 ####[facility] [address] [place], [address] CA OX CRYSTAL 1+ /hpf Normal [facility] Comment on above: Order Comment: Urine , Random Performed By: #### M 100.2200, L400.0001 ####[facility] [address] [place], [address] EPI,SQUAMOUS 0-5 SEEN Normal 5-10 [facility] Comment on above: Order Comment: Urine , Random Performed By: #### M 100.2200, L400.0001 ####[facility] [address] [place], [address] WBC >100 SEEN Normal 0-5 [facility] Comment on above: Order Comment: Urine , Random Performed By: #### M 100.2200, L400.0001 ####[facility] [address] [place], [address] Mucus Ql (Urine sed) 0 SEEN Normal [facility] Comment on above: Order Comment: Urine , Random Performed By: #### M 100.2200, L400.0001 ####[facility] [address] [place], [address] RBC 0 SEEN Normal 0-5 [facility] Comment on above: Order Comment: Urine , Random Performed By: #### M 100.2200, L400.0001 ####[facility] [address] [place], [address] Bacteria LM.HPF (Urine sed) [#/Area]Ordered By: Millie Massey on 06-21-2024 Urine sediment bacteria count by microscopy (number/high power field) 4+ /hpf None Seen [facility] Bilirubin Test strip Ql (U)O rdered By: Millie Massey on 06-21-2024 Bilirubin Ql (U) Negative Negative [facility] Calcium oxalate crystals LM Ql (Urine sed)Ordered By: Millie Massey on 06-21-2024 Calcium oxalate crystals detection in urine sediment by light microscopy 1+ /hpf [facility] Calcium oxalate crystals det ection in urine sediment by light microscopyOrdered By: Millie Massey on 06-21-2024 Calcium oxalate crystals LM Ql (Urine sed) 1+ /hpf [facility] Clarity (U)Ordered By: Krystle Massey on 06-21-2024 Urine clarity Turbid Clear [facility] Color (U)Ordered By: Millie Massey on 06-21-2024 Urine color determination Yellow Yellow [facility] Epithelial cells.squamous LM Ql (Urine sed)Ordered By: Millie Massey on 06-21-2024 Squamous epithelial cells detection in urine sediment by light microscopy 0-5 SEEN /hpf 5-10 [facility] Ketones Test strip Ql (U)Ord ered By: Millie Massey on 06-21-2024 Ketones Ql (U) Negative Negative [facility] Leukocyte esterase Test stri p Ql (U)Ordered By: Millie Massey on 06-21-2024 Urine leukocyte esterase detection by dipstick 500 /ul High Negative [facility] Microscopic analysis of urin e for red blood cells (RBC)Ordered By: Millie Massey on 06-21-2024 Microscopic analysis of urine for red blood cells (RBC) 0 SEEN /hpf [facility] Mucus LM Ql (Urine sed)Order ed By: Millie Massey on 06-21-2024 Mucus Ql (Urine sed) 0 SEEN /hpf [facility] Nitrite Test strip Ql (U)Ord ered By: Millie Massey on 06-21-2024 Nitrite Ql (U) Negative Negative [facility] Protein Test strip Ql (U)Ord ered By: Millie Massey on 06-21-2024 Protein Ql (U) 100 mg/dl High Negative [facility] Urine protein assay by test strip, semi-quantitative 100 mg/dl High Negative [facility] Specific gravity (U) [Rel de nsity]Ordered By: Millie Massey on 06-21-2024 Urine specific gravity measurement 1.010 1.002-1.03 0 [facility] Squamous epithelial cells de tection in urine sediment by light microscopyOrdered By: Millie Massey on 06-21-2024 Epithelial cells.squamous LM Ql (Urine sed) 0-5 SEEN /hpf 5-10 [facility] Urine blood detectionOrdered By: Millie Massey on 06-21-2024 Urine blood detection 50 /ul High Negative [facility] Urine clarityOrdered By: Lesli Massey on 06-21-2024 Clarity (U) Turbid Clear [facility] Urine color determinationOrd ered By: Millie Massey on 06-21-2024 Color (U) Yellow Yellow [facility] Urine cultureOrdered By: Lesli Massey on 06-21-2024 Bacteria identified Cx Nom (U) Klebsiella oxytoca Abnormal [facility] Bacteria identified Cx Nom (U) Serratia ficaria Abnormal [facility] Urine culture Klebsiella oxytoca Abnormal [facility] Urine culture Serratia ficaria Abnormal [facility] Urine glucose detectionOrder ed By: Millie Massey on 06-21-2024 Glucose Ql (U) Normal mg/dl Normal [facility] Urine glucose detection Normal mg/dl Normal [facility] Urine leukocyte esterase det ection by dipstickOrdered By: Millie Massey on 06-21-2024 Leukocyte esterase Test strip Ql (U) 500 /ul High Negative [facility] Urine pHOrdered By: Millie Retana udla on 06-21-2024 pH (U) 8.0 [pH] 5.0 - 8.0 [facility] Urine sediment bacteria coun t by microscopy (number/high power field)Ordered By: Millie Massey on 06-21-2024 Bacteria LM.HPF (Urine sed) [#/Area] 4 /[HPF] None Seen [facility] Urine specific gravity measu rementOrdered By: Millie Massey on 06-21-2024 Specific gravity (U) [Rel density] 1.010 1.002-1.03 0 [facility] Urine total bilirubin detect ion by test stripOrdered By: Millie Massey on 06-21-2024 Urine total bilirubin detection by test strip Negative Negative [facility] Urine urobilinogen measureme ntOrdered By: Millie Massey on 06-21-2024 Urobilinogen Ql (U) Normal mg/dl Normal [facility] White blood cell countOrdere d By: Millie Massey on 06-21-2024 White blood cell count >100 SEEN /hpf 0-5 [facility] White blood cell count >100 SEEN /hpf 0-5 [facility] pH (U)Ordered By: Millie little on 06-21-2024 Urine pH 8.0 5.0 - 8.0 [facility] Basic Metabolic Profile (BMP )on 06-07-2024 BUN/CRE 12.1 RATIO Normal 10-20 [facility] Comment on above: Order Comment: Performed By: #### L 500.2500 ####[facility] [address] [place], [address] CA,Total 8.6 mg/dL Normal 8.5-10.1 [facility] Comment on above: Order Comment: 103- Performed By: #### L 500.2500 ####[facility] [address] [place], [address] Chloride [Moles/Vol] 107 mmol/L Normal 98-107 [facility] Comment on above: Order Comment: Performed By: #### L 500.2500 ####[facility] [address] [place], [address] CO2 [Moles/Vol] 22.0 mmol/L Normal 21.0-32.0 [facility] Comment on above: Order Comment: Performed By: #### L 500.2500 ####[facility] [address] [place], [address] Creatinine [Mass/Vol] 2.65 mg/dL High 0.55-1.02 [facility] Comment on above: Order Comment: Result Comment: The validity of the calculated GFR GFRAA in patients over70 years has not been determined. Clinical correlation isessential. Performed By: #### L 500.2500 ####[facility] [address] [place], [address] EST GFR - AA 24 mL/min Low >60 [facility] Comment on above: Order Comment: Result Comment: Afri can Nauruan GFR Calc Performed By: #### L 500.2500 ####[facility] [address] [place], [address] GAP 6 Normal 5-15 [facility] Comment on above: Order Comment: Performed By: #### L 500.2500 ####[facility] [address] [place], [address] GFR/1.73 sq M.predicted among non-blacks MDRD (S/P/Bld) [Vol rate/Area] 19 mL/min/{1.73_m2} Low >60 [facility] Comment on above: Order Comment: Result Comment: Non- GFR Calc Performed By: #### L 500.2500 ####[facility] [address] [place], [address] Glucose [Mass/Vol] 77 mg/dL Normal 74-106 [facility] Comment on above: Order Comment: 103-1 Performed By: #### L 500.2500 ####[facility] [address] [place], [address] Potassium [Moles/Vol] 5.3 mmol/L High 3.5-5.1 [facility] Comment on above: Order Comment: 103-1 Result Comment: Mode rate Hemolysis, Result may be falsely increased. Performed By: #### L 500.2500 ####[facility] [address] [place], [address] Sodium [Moles/Vol] 134 mmol/L Low 136-145 [facility] Comment on above: Order Comment: 103-1 Performed By: #### L 500.2500 ####[facility] [address] [place], [address] Urea nitrogen [Mass/Vol] 32 mg/dL High 7-18 [facility] Comment on above: Order Comment: 103- Performed By: #### L 500.2500 ####[facility] [address] [place], [address] Blood urea nitrogen (BUN)/cr eatinine ratioOrdered By: Millie Massey on 06-07-2024 Blood urea nitrogen (BUN)/creatinine ratio 12.1 RATIO 10-20 [facility] Calcium [Mass/Vol]Ordered By : Millie Massey on 06-07-2024 Serum or plasma calcium measurement (mass/volume) 8.6 mg/dL 8.5-10.1 [facility] Carbon dioxide measurementOr dered By: Millie Massey on 06-07-2024 Carbon dioxide measurement 22.0 mmol/L 21.0-32.0 [facility] Chloride measurementOrdered By: Millie Massey on 06-07-2024 Chloride measurement 107 mmol/L 98-107 [facility] Creatinine [Mass/Vol]Ordered By: Millie Massey on 06-07-2024 Serum or plasma creatinine measurement (mass/volume) 2.65 mg/dL High 0.55-1.02 [facility] Estimated glomerular filtrat ion rate (GFR) AmericanOrdered By: Millie Massey on 06-07-2024 Estimated glomerular filtration rate (GFR) 24 mL/min Low >60 [facility] Glomerular filtration rate ( GFR) estimationOrdered By: Millie Massey on 06-07-2024 Glomerular filtration rate (GFR) estimation 19 mL/min Low >60 [facility] Glucose measurementOrdered B y: Millie Massey on 06-07-2024 Glucose measurement 77 mg/dL 74-106 [facility] Potassium measurementOrdered By: Millie Massey on 06-07-2024 Potassium measurement 5.3 mmol/L High 3.5-5.1 [facility] Serum anion gap measurementO rdered By: Millie Massey on 06-07-2024 Serum anion gap measurement 6 5-15 [facility] Sodium levelOrdered By: Silvana Massey on 06-07-2024 Sodium level 134 mmol/L Low 136-145 [facility] Urea nitrogen [Mass/Vol]Orde red By: Millie Massey on 06-07-2024 Serum or plasma urea nitrogen measurement (mass/volume) 32 mg/dL High 7-18 [facility] Basic Metabolic Profile (BMP )on 06-06-2024 BUN/CRE 11.9 RATIO Normal 10-20 [facility] Comment on above: Performed By: #### L 500.2500 ####[facility] [address] [place], [place], [id number] [place],Total 8.5 mg/dL Normal 8.5-10.1 [facility] Comment on above: Performed By: #### L 500.2500 ####[facility] [address] [place], [address] Chloride [Moles/Vol] 104 mmol/L Normal 98-107 [facility] Comment on above: Performed By: #### L 500.2500 ####[facility] [address] [place], [address] CO2 [Moles/Vol] 25.0 mmol/L Normal 21.0-32.0 [facility] Comment on above: Performed By: #### L 500.2500 ####[facility] [address] [place], [address] Creatinine [Mass/Vol] 2.53 mg/dL High 0.55-1.02 [facility] Comment on above: Result Comment: The validity of the calculated GFR GFRAA in patients over70 years has not been determined. Clinical correlation isessential. Performed By: #### L 500.2500 ####[facility] [address] [place], [address] EST GFR - AA 25 mL/min Low >60 [facility] Comment on above: Result Comment: Afri can Nauruan GFR Calc Performed By: #### L 500.2500 ####[facility] [address] [place], [address] GAP 5 Normal 5-15 [facility] Comment on above: Performed By: #### L 500.2500 ####[facility] [address] [place], [address] GFR/1.73 sq M.predicted among non-blacks MDRD (S/P/Bld) [Vol rate/Area] 21 mL/min/{1.73_m2} Low >60 [facility] Comment on above: Result Comment: Non- GFR Calc Performed By: #### L 500.2500 ####[facility] [address] [place], [address] Glucose [Mass/Vol] 79 mg/dL Normal 74-106 [facility] Comment on above: Performed By: #### L 500.2500 ####[facility] [address] [place], [address] Potassium [Moles/Vol] 5.0 mmol/L Normal 3.5-5.1 [facility] Comment on above: Performed By: #### L 500.2500 ####[facility] [address] [place], [place], [address] Sodium [Moles/Vol] 134 mmol/L Low 136-145 [facility] Comment on above: Performed By: #### L 500.2500 ####[facility] [address] [place], [place], [id number] Urea nitrogen [Mass/Vol] 30 mg/dL High 7-18 [facility] Comment on above: Performed By: #### L 500.2500 ####[facility] [address] [place], [place], [address] Blood urea nitrogen (BUN)/cr eatinine ratioOrdered By: Millie Massey on 06-06-2024 Blood urea nitrogen (BUN)/creatinine ratio 11.9 RATIO 10-20 [facility] Calcium [Mass/Vol]Ordered By : Millie Massey on 06-06-2024 Serum or plasma calcium measurement (mass/volume) 8.5 mg/dL 8.5-10.1 [facility] Carbon dioxide measurementOr dered By: Millie Massey on 06-06-2024 Carbon dioxide measurement 25.0 mmol/L 21.0-32.0 [facility] Chloride measurementOrdered By: Millie Massey on 06-06-2024 Chloride measurement 104 mmol/L 98-107 [facility] Creatinine [Mass/Vol]Ordered By: Millie Massey on 06-06-2024 Serum or plasma creatinine measurement (mass/volume) 2.53 mg/dL High 0.55-1.02 [facility] Estimated glomerular filtrat ion rate (GFR) AmericanOrdered By: Millie Massey on 06-06-2024 Estimated glomerular filtration rate (GFR) 25 mL/min Low >60 [facility] Glomerular filtration rate ( GFR) estimationOrdered By: Millie Massey on 06-06-2024 Glomerular filtration rate (GFR) estimation 21 mL/min Low >60 [facility] Glucose measurementOrdered B y: Millie Massey on 06-06-2024 Glucose measurement 79 mg/dL 74-106 [facility] Potassium measurementOrdered By: Millie Massey on 06-06-2024 Potassium measurement 5.0 mmol/L 3.5-5.1 [facility] Serum anion gap measurementO rdered By: Millie Massey on 06-06-2024 Serum anion gap measurement 5 5-15 [facility] Sodium levelOrdered By: Silvana Massey on 06-06-2024 Sodium level 134 mmol/L Low 136-145 [facility] Urea nitrogen [Mass/Vol]Orde red By: Millie Massey on 06-06-2024 Serum or plasma urea nitrogen measurement (mass/volume) 30 mg/dL High 7-18 [facility] MR/BMS.BVSon 06-05-2024 MR/BMS.BVS Normal [facility] Absolute neutrophil countOrd ered By: Millie Massey on 06-03-2024 Absolute neutrophil count 4.5 X10^3/uL 2.0-7.7 [facility] Basic Metabolic Profile (BMP )on 06-03-2024 BUN/CRE 14.6 RATIO Normal 10-20 [facility] Comment on above: Order Comment: 103.1 Performed By: #### L 100.0100, L500.2500, L501.6710 ####[facility] [address] [place], [address] CA,Total 8.7 mg/dL Normal 8.5-10.1 [facility] Comment on above: Order Comment: 103.1 Performed By: #### L 100.0100, L500.2500, L501.6710 ####[facility] [address] [place], [address] Chloride [Moles/Vol] 102 mmol/L Normal 98-107 [facility] Comment on above: Order Comment: 103.1 Performed By: #### L 100.0100, L500.2500, L501.6710 ####[facility] [address] [place], [address] CO2 [Moles/Vol] 24.0 mmol/L Normal 21.0-32.0 [facility] Comment on above: Order Comment: 103.1 Performed By: #### L 100.0100, L500.2500, L501.6710 ####[facility] [address] [place], [address] Creatinine [Mass/Vol] 2.40 mg/dL High 0.55-1.02 [facility] Comment on above: Order Comment: 103.1 Result Comment: The validity of the calculated GFR GFRAA in patients over70 years has not been determined. Clinical correlation isessential. Performed By: #### L 100.0100, L500.2500, L501.6710 ####[facility] [address] [place], [address] EST GFR - AA 26 mL/min Low >60 [facility] Comment on above: Order Comment: 103.1 Result Comment: Afri can Nauruan GFR Calc Performed By: #### L 100.0100, L500.2500, L501.6710 ####[facility] [address] [place], [address] GAP 6 Normal 5-15 [facility] Comment on above: Order Comment: 103.1 Performed By: #### L 100.0100, L500.2500, L501.6710 ####[facility] [address] [place], [address] GFR/1.73 sq M.predicted among non-blacks MDRD (S/P/Bld) [Vol rate/Area] 22 mL/min/{1.73_m2} Low >60 [facility] Comment on above: Order Comment: 103.1 Result Comment: Non- GFR Calc Performed By: #### L 100.0100, L500.2500, L501.6710 ####[facility] [address] [place], [address] Glucose [Mass/Vol] 87 mg/dL Normal 74-106 [facility] Comment on above: Order Comment: 103.1 Performed By: #### L 100.0100, L500.2500, L501.6710 ####[facility] [address] [place], [address] Potassium [Moles/Vol] 5.3 mmol/L High 3.5-5.1 [facility] Comment on above: Order Comment: 103.1 Performed By: #### L 100.0100, L500.2500, L501.6710 ####[facility] [address] [place], [address] Sodium [Moles/Vol] 132 mmol/L Low 136-145 [facility] Comment on above: Order Comment: 103.1 Performed By: #### L 100.0100, L500.2500, L501.6710 ####[facility] [address] [place], [address] Urea nitrogen [Mass/Vol] 35 mg/dL High 7-18 [facility] Comment on above: Order Comment: 103.1 Performed By: #### L 100.0100, L500.2500, L501.6710 ####[facility] [address] [place], [address] Blood urea nitrogen (BUN)/cr eatinine ratioOrdered By: Millie Massey on 06-03-2024 Blood urea nitrogen (BUN)/creatinine ratio 14.6 RATIO 10-20 [facility] C-reactive protein measureme nt by high sensitivity methodOrdered By: Millie Massey on 06-03-2024 C-reactive protein measurement by high sensitivity method 15.60 mg/L High 0.0-3.0 [facility] CBC W/Diff, Automatedon Absolute Lymph 0.75 X10 3/uL Low 0.83-4.51 [facility] Comment on above: Order Comment: 103.1 Performed By: #### L 100.0100, L500.2500, L501.6710 ####[facility] [address] [place], [address] Absolute Neut 4.5 X10 3/uL Normal 2.0-7.7 [facility] Comment on above: Order Comment: 103.1 Performed By: #### L 100.0100, L500.2500, L501.6710 ####[facility] [address] [place], [address] Basophils/100 WBC (Bld) 1.0 % Normal 0-1 [facility] Comment on above: Order Comment: 103.1 Performed By: #### L 100.0100, L500.2500, L501.6710 ####[facility] [address] [place], [address] Eosinophils/100 WBC (Bld) 1.0 % Normal 0-5 [facility] Comment on above: Order Comment: 103.1 Performed By: #### L 100.0100, L500.2500, L501.6710 ####[facility] [address] [place], [address] Erythrocyte distribution width (RBC) [Ratio] 15.7 % High 11.6-14.6 [facility] Comment on above: Order Comment: 103.1 Performed By: #### L 100.0100, L500.2500, L501.6710 ####[facility] [address] [place], [address] Hematocrit (Bld) [Volume fraction] 38.9 % Normal 37-47 [facility] Comment on above: Order Comment: 103.1 Performed By: #### L 100.0100, L500.2500, L501.6710 ####[facility] [address] [place], [address] Hemoglobin (Bld) [Mass/Vol] 11.8 g/dL Low 12.0-15.0 [facility] Comment on above: Order Comment: 103.1 Performed By: #### L 100.0100, L500.2500, L501.6710 ####[facility] [address] [place], [address] IG% 0.800 Normal 0.0-0.9 [facility] Comment on above: Order Comment: 103.1 Result Comment: IG% - Immature Granulocytes (promyelocytes, myelocytes andmetamyelocytes) > 1% indicates that a LEFT SHIFT is Present. Performed By: #### L 100.0100, L500.2500, L501.6710 ####[facility] [address] [place], [address] Lymphocytes/100 WBC (Bld) 12.4 % Low 19-41 [facility] Comment on above: Order Comment: 103.1 Performed By: #### L 100.0100, L500.2500, L501.6710 ####[facility] [address] [place], [address] MCH (RBC) [Entitic mass] 28.4 pg Normal 27.0-32.0 [facility] Comment on above: Order Comment: 103.1 Performed By: #### L 100.0100, L500.2500, L501.6710 ####[facility] [address] [place], [address] MCHC (RBC) [Mass/Vol] 30.3 g/dL Low 32-36 [facility] Comment on above: Order Comment: 103.1 Performed By: #### L 100.0100, L500.2500, L501.6710 ####[facility] [address] [place], [address] MCV (RBC) [Entitic vol] 93.5 fL Normal 81-99 [facility] Comment on above: Order Comment: 103.1 Performed By: #### L 100.0100, L500.2500, L501.6710 ####[facility] [address] [place], [address] Monocytes/100 WBC (Bld) 9.9 % Normal 0-10 [facility] Comment on above: Order Comment: 103.1 Performed By: #### L 100.0100, L500.2500, L501.6710 ####[facility] [address] [place], [address] Neutrophils/100 WBC (Bld) 74.9 % High 47-70 [facility] Comment on above: Order Comment: 103.1 Performed By: #### L 100.0100, L500.2500, L501.6710 ####[facility] [address] [place], [address] Nucleated RBC (Bld) [#/Vol] 0 10*3/uL Normal 0-5 [facility] Comment on above: Order Comment: 103.1 Performed By: #### L 100.0100, L500.2500, L501.6710 ####[facility] [address] [place], [address] Platelet mean volume (Bld) [Entitic vol] 9.9 fL Normal 6.2-12.0 [facility] Comment on above: Order Comment: 103.1 Performed By: #### L 100.0100, L500.2500, L501.6710 ####[facility] [address] [place], [address] Platelets (Bld) [#/Vol] 196 10*3/uL Normal 150-450 [facility] Comment on above: Order Comment: 103.1 Performed By: #### L 100.0100, L500.2500, L501.6710 ####[facility] [address] [place], [address] RBC (Bld) [#/Vol] 4.16 10*6/uL Low 4.2-5.4 [facility] Comment on above: Order Comment: 103.1 Performed By: #### L 100.0100, L500.2500, L501.6710 ####[facility] [address] [place], [address] RDW SD 54.4 fl High 35.1-43.9 [facility] Comment on above: Order Comment: 103.1 Performed By: #### L 100.0100, L500.2500, L501.6710 ####[facility] [address] [place], [address] WBC (Bld) [#/Vol] 6.1 10*3/uL Normal 4.4-11.0 [facility] Comment on above: Order Comment: 103.1 Performed By: #### L 100.0100, L500.2500, L501.6710 ####[facility] [address] [place], [address] CRPon 06-03-2024 C-REACTIVE PROT 15.60 mg/L High 0.0-3.0 [facility] Comment on above: Order Comment: 103.1 Result Comment: C-Re active Protein (CRP) provides useful information for thediagnosis, therapy and monitoring of inflammatory processesand associated diseases. For the evaluation of Relative Riskfor Cardiovascular Disease, a High Sensitivity CRP (HSCRP)should be ordered. Performed By: #### L 100.0100, L500.2500, L501.6710 ####[facility] [address] [place], [address] Calcium [Mass/Vol]Ordered By : Mlilie Massey on 06-03-2024 Serum or plasma calcium measurement (mass/volume) 8.7 mg/dL 8.5-10.1 [facility] Carbon dioxide measurementOr dered By: Millie Massey on 06-03-2024 Carbon dioxide measurement 24.0 mmol/L 21.0-32.0 [facility] Chloride measurementOrdered By: Millie Massey on 06-03-2024 Chloride measurement 102 mmol/L 98-107 [facility] Creatinine [Mass/Vol]Ordered By: Millie Massey on 06-03-2024 Serum or plasma creatinine measurement (mass/volume) 2.40 mg/dL High 0.55-1.02 [facility] Eosinophil percentageOrdered By: Millie Massey on 06-03-2024 Eosinophil percentage 1.0 % 0-1 [facility] Erythrocyte distribution wid th (RBC) [Ratio]Ordered By: Millie Massey on 06-03-2024 Erythrocyte distribution width ratio 15.7 % High 11.6-14.6 [facility] Erythrocyte distribution wid th standard deviationOrdered By: Millie Massey on 06-03-2024 Erythrocyte distribution width standard deviation 54.4 fl High 35.1-43.9 [facility] Estimated glomerular filtrat ion rate (GFR) AmericanOrdered By: Millie Massey on 06-03-2024 Estimated glomerular filtration rate (GFR) 26 mL/min Low >60 [facility] Glomerular filtration rate ( GFR) estimationOrdered By: Millie Massey on 06-03-2024 Glomerular filtration rate (GFR) estimation 22 mL/min Low >60 [facility] Glucose measurementOrdered B y: Millie Massey on 06-03-2024 Glucose measurement 87 mg/dL 74-106 [facility] Hematocrit Auto (Bld) [Volum e fraction]Ordered By: Millie Massey on 06-03-2024 Automated blood hematocrit (percentage) 38.9 % 37-47 [facility] Hemoglobin measurementOrdere d By: Millie Massey on 06-03-2024 Hemoglobin measurement 11.8 g/dL Low 12.0-15.0 [facility] Immature granulocytes/100 WB C Auto (Bld)Ordered By: Millie Massey on 06-03-2024 Automated immature granulocyte percentage 0.800 % 0.0-0.9 [facility] Lymphocytes Auto (Unsp spec) [#/Vol]Ordered By: Millie Massey on 06-03-2024 Absolute lymphocyte count 0.75 X10^3/uL Low 0.83-4.51 [facility] Lymphocytes/100 WBC Auto (Un sp spec)Ordered By: Millie Massey on 06-03-2024 Automated lymphocyte count as percentage of total leukocytes 12.4 % Low 19-41 [facility] MCV (RBC) [Entitic vol]Order ed By: Millie Massey on 06-03-2024 MCV (mean corpuscular volume) determination 93.5 fL 81-99 [facility] Mean corpuscular hemoglobin (MCH) determinationOrdered By: Millie Massey on 06-03-2024 Mean corpuscular hemoglobin (MCH) determination 28.4 pg 27.0-32.0 [facility] Mean corpuscular hemoglobin concentration (MCHC) determinationOrdered By: Millie Massey on 06-03-2024 Mean corpuscular hemoglobin concentration (MCHC) determination 30.3 g/dL Low 32-36 [facility] Mean platelet volume determi nationOrdered By: Millie Massey on 06-03-2024 Mean platelet volume determination 9.9 fl 6.2-12.0 [facility] Monocyte percentageOrdered B y: Millie Massey on 06-03-2024 Monocyte percentage 9.9 % 0-10 [facility] Neutrophil percentageOrdered By: Millie Massey on 06-03-2024 Neutrophil percentage 74.9 % High 47-70 [facility] Nucleated red blood cell per centageOrdered By: Millie Massey on 06-03-2024 Nucleated red blood cell percentage 0 % 0-5 [facility] Platelet countOrdered By: Carter Massey on 06-03-2024 Platelet count 196 K/mm3 150-450 [facility] Potassium measurementOrdered By: Millie Massey on 06-03-2024 Potassium measurement 5.3 mmol/L High 3.5-5.1 [facility] RBC Auto (Bld) [#/Vol]Ordere d By: Millie Massey on 06-03-2024 Automated blood erythrocyte count 4.16 M/mm3 Low 4.2-5.4 [facility] Serum anion gap measurementO rdered By: Millie Massey on 06-03-2024 Serum anion gap measurement 6 5-15 [facility] Sodium levelOrdered By: Silvana Massey on 06-03-2024 Sodium level 132 mmol/L Low 136-145 [facility] Urea nitrogen [Mass/Vol]Orde red By: Millie Massey on 06-03-2024 Serum or plasma urea nitrogen measurement (mass/volume) 35 mg/dL High 7-18 [facility] White blood cell (WBC) count Ordered By: Millie Massey on 06-03-2024 White blood cell (WBC) count 6.1 K/mm3 4.4-11.0 [facility] Miscellaneous Lab Procedureo n 05-30-2024 MISC LAB TEST Normal [facility] Comment on above: Order Comment: [id number] Result Comment: TEST RESULTS LIMITSHemoglobin A1c <4.2 Low % 4.8-5.6 Verified by repeat analysis Please Note: Prediabetes: 5.7 - 6.4 Diabetes: >6.4 Glycemic control for adults with diabetes: <7.0 TESTING PERFORMED AT [facility]. ORIGINAL REPORT ON FILE IN LAB CONTAINS ADDITIONAL TEST SITE INFORMATION. Performed By: #### L 801.1541 ####[facility] [address] [place], [address] Prealbumin [id number] 4 Prealbumin [Mass/Vol] 10 mg/dL Normal 10-36 [facility] Comment on above: Order Comment: 103.1 Result Comment: Perf ormed at: [facility] Lab[address] [id number] Director: Manjinder Babb PhD, Phone: [phone] Performed By: #### L 501.9581, L501.29092, L501.5200, L3300.6400, L500.4050, L100.0100, L501.9310 ####[facility] [address] [place], [address] ALP [Catalytic activity/Vol] Ordered By: Millie Massey on 05-27-2024 Serum or plasma alkaline phosphatase measurement 65 U/L 45-117 [facility] ALT [Catalytic activity/Vol] Ordered By: Millieblanche Massey on 05-27-2024 Serum or plasma alanine aminotransferase (ALT) measurement 10 U/L Low 13-56 [facility] Absolute neutrophil countOrd ered By: Millie Alyjames on 05-27-2024 Absolute neutrophil count 3.6 X10^3/uL 2.0-7.7 [facility] Albumin [Mass/Vol]Ordered By : Millieblanche Massey on 05-27-2024 Serum or plasma albumin measurement (mass/volume) 1.8 g/dL Low 3.2-5.0 [facility] Albumin to globulin ratioOrd ered By: Millieblanche Massey on 05-27-2024 Albumin to globulin ratio 0.4 RATIO Low 0.9-2.4 [facility] Basophil percentageOrdered B y: Millie Gujames on 05-27-2024 Basophil percentage 0.8 % 0-1 [facility] Bilirubin, totalOrdered By: Millie Massey on 05-27-2024 Bilirubin, total 0.40 mg/dL 0.20-1.00 [facility] Blood urea nitrogen (BUN)/cr eatinine ratioOrdered By: Millieblanche Massey on 05-27-2024 Blood urea nitrogen (BUN)/creatinine ratio 15.6 RATIO 10-20 [facility] CBC W/Diff, Automatedon 12 Absolute Lymph 0.62 X10 3/uL Low 0.83-4.51 [facility] Comment on above: Order Comment: 103.1 Performed By: #### L 501.9520, L501.11465, L501.5200, L3300.6400, L500.4050, L100.0100, L501.9310 ####[facility] [address] [place], [address] Absolute Neut 3.6 X10 3/uL Normal 2.0-7.7 [facility] Comment on above: Order Comment: 103.1 Performed By: #### L 501.9520, L501.57217, L501.5200, L3300.6400, L500.4050, L100.0100, L501.9310 ####[facility] [address] [place], [address] Basophils/100 WBC (Bld) 0.8 % Normal 0-1 [facility] Comment on above: Order Comment: 103.1 Performed By: #### L 501.9520, L501.53805, L501.5200, L3300.6400, L500.4050, L100.0100, L501.9310 ####[facility] [address] [place], [address] Eosinophils/100 WBC (Bld) 2.3 % Normal 0-5 [facility] Comment on above: Order Comment: 103.1 Performed By: #### L 501.9520, L501.55580, L501.5200, L3300.6400, L500.4050, L100.0100, L501.9310 ####[facility] [address] [place], [address] Erythrocyte distribution width (RBC) [Ratio] 17.2 % High 11.6-14.6 [facility] Comment on above: Order Comment: 103.1 Performed By: #### L 501.9520, L501.73585, L501.5200, L3300.6400, L500.4050, L100.0100, L501.9310 ####[facility] [address] [place], [address] Hematocrit (Bld) [Volume fraction] 36.0 % Low 37-47 [facility] Comment on above: Order Comment: 103.1 Performed By: #### L 501.9520, L501.86710, L501.5200, L3300.6400, L500.4050, L100.0100, L501.9310 ####[facility] [address] [place], [address] Hemoglobin (Bld) [Mass/Vol] 10.4 g/dL Low 12.0-15.0 [facility] Comment on above: Order Comment: 103.1 Performed By: #### L 501.9520, L501.39225, L501.5200, L3300.6400, L500.4050, L100.0100, L501.9310 ####[facility] [address] [place], [address] IG% 1.000 High 0.0-0.9 [facility] Comment on above: Order Comment: 103.1 Result Comment: IG% - Immature Granulocytes (promyelocytes, myelocytes andmetamyelocytes) > 1% indicates that a LEFT SHIFT is Present. Performed By: #### L 501.9520, L501.93088, L501.5200, L3300.6400, L500.4050, L100.0100, L501.9310 ####[facility] [address] [place], [address] Lymphocytes/100 WBC (Bld) 12.8 % Low 19-41 [facility] Comment on above: Order Comment: 103.1 Performed By: #### L 501.9520, L501.25467, L501.5200, L3300.6400, L500.4050, L100.0100, L501.9310 ####[facility] [address] [place], [address] MCH (RBC) [Entitic mass] 28.2 pg Normal 27.0-32.0 [facility] Comment on above: Order Comment: 103.1 Performed By: #### L 501.9520, L501.24612, L501.5200, L3300.6400, L500.4050, L100.0100, L501.9310 ####[facility] [address] [place], [address] MCHC (RBC) [Mass/Vol] 28.9 g/dL Low 32-36 [facility] Comment on above: Order Comment: 103.1 Performed By: #### L 501.9520, L501.57492, L501.5200, L3300.6400, L500.4050, L100.0100, L501.9310 ####[facility] [address] [place], [address] MCV (RBC) [Entitic vol] 97.6 fL Normal 81-99 [facility] Comment on above: Order Comment: 103.1 Performed By: #### L 501.9520, L501.41089, L501.5200, L3300.6400, L500.4050, L100.0100, L501.9310 ####[facility] [address] [place], [address] Monocytes/100 WBC (Bld) 9.3 % Normal 0-10 [facility] Comment on above: Order Comment: 103.1 Performed By: #### L 501.9520, L501.89160, L501.5200, L3300.6400, L500.4050, L100.0100, L501.9310 ####[facility] [address] [place], [address] Neutrophils/100 WBC (Bld) 73.8 % High 47-70 [facility] Comment on above: Order Comment: 103.1 Performed By: #### L 501.9520, L501.65728, L501.5200, L3300.6400, L500.4050, L100.0100, L501.9310 ####[facility] [address] [place], [address] Nucleated RBC (Bld) [#/Vol] 0 10*3/uL Normal 0-5 [facility] Comment on above: Order Comment: 103.1 Performed By: #### L 501.9520, L501.75453, L501.5200, L3300.6400, L500.4050, L100.0100, L501.9310 ####[facility] [address] [place], [address] Platelet mean volume (Bld) [Entitic vol] 9.4 fL Normal 6.2-12.0 [facility] Comment on above: Order Comment: 103.1 Performed By: #### L 501.9520, L501.83040, L501.5200, L3300.6400, L500.4050, L100.0100, L501.9310 ####[facility] [address] [place], [address] Platelets (Bld) [#/Vol] 140 10*3/uL Low 150-450 [facility] Comment on above: Order Comment: 103.1 Performed By: #### L 501.9520, L501.58926, L501.5200, L3300.6400, L500.4050, L100.0100, L501.9310 ####[facility] [address] [place], [address] RBC (Bld) [#/Vol] 3.69 10*6/uL Low 4.2-5.4 [facility] [facility] Comment on above: Order Comment: 103.1 Performed By: #### L 501.9520, L501.87328, L501.5200, L3300.6400, L500.4050, L100.0100, L501.9310 ####[facility] [address] [place], [address] RDW SD 62.0 fl High 35.1-43.9 [facility] Comment on above: Order Comment: 103.1 Performed By: #### L 501.9520, L501.18583, L501.5200, L3300.6400, L500.4050, L100.0100, L501.9310 ####[facility] [address] [place], [address] WBC (Bld) [#/Vol] 4.8 10*3/uL Normal 4.4-11.0 [facility] Comment on above: Order Comment: 103.1 Performed By: #### L 501.9520, L501.98076, L501.5200, L3300.6400, L500.4050, L100.0100, L501.9310 ####[facility] [address] [place], [address] Calcium [Mass/Vol]Ordered By : Millie Massey on 05-27-2024 Serum or plasma calcium measurement (mass/volume) 7.8 mg/dL Low 8.5-10.1 [facility] Carbon dioxide measurementOr dered By: Millie Massey on 05-27-2024 Carbon dioxide measurement 30.0 mmol/L 21.0-32.0 [facility] Chloride measurementOrdered By: Millieblanche Massey on 05-27-2024 Chloride measurement 103 mmol/L 98-107 [facility] Comprehensive Metabolic Prof ilon 05-27-2024 Albumin [Mass/Vol] 1.8 g/dL Low 3.2-5.0 [facility] Comment on above: Order Comment: 103.1 Performed By: #### L 501.9520, L501.69570, L501.5200, L3300.6400, L500.4050, L100.0100, L501.9310 ####[facility] [address] [place], [address] Albumin/Globulin [Mass ratio] 0.4 {ratio} Low 0.9-2.4 [facility] Comment on above: Order Comment: 103.1 Performed By: #### L 501.9520, L501.91749, L501.5200, L3300.6400, L500.4050, L100.0100, L501.9310 ####[facility] [address] [place], [address] ALK P 65 U/L Normal 45-117 [facility] Comment on above: Order Comment: 103.1 Performed By: #### L 501.9520, L501.29887, L501.5200, L3300.6400, L500.4050, L100.0100, L501.9310 ####[facility] [address] [place], [address] ALT [Catalytic activity/Vol] 10 U/L Low 13-56 [facility] Comment on above: Order Comment: 103.1 Performed By: #### L 501.9520, L501.79441, L501.5200, L3300.6400, L500.4050, L100.0100, L501.9310 ####[facility] [address] [place], [address] AST [Catalytic activity/Vol] 14 U/L Low 15-37 [facility] Comment on above: Order Comment: 103.1 Performed By: #### L 501.9520, L501.57079, L501.5200, L3300.6400, L500.4050, L100.0100, L501.9310 ####[facility] [address] [place], [address] Bilirubin [Mass/Vol] 0.40 mg/dL Normal 0.20-1.00 [facility] Comment on above: Order Comment: 103.1 Result Comment: For patients on eltrombopag therapy, use of Dimension [place] TBIL is not recommended. Performed By: #### L 501.9520, L501.95536, L501.5200, L3300.6400, L500.4050, L100.0100, L501.9310 ####[facility] [address] [place], [address] BUN/CRE 15.6 RATIO Normal 10-20 [facility] Comment on above: Order Comment: 103.1 Performed By: #### L 501.9520, L501.31024, L501.5200, L3300.6400, L500.4050, L100.0100, L501.9310 ####[facility] [address] [place], [address] CA,Total 7.8 mg/dL Low 8.5-10.1 [facility] Comment on above: Order Comment: 103.1 Performed By: #### L 501.9520, L501.81910, L501.5200, L3300.6400, L500.4050, L100.0100, L501.9310 ####[facility] [address] [place], [address] Chloride [Moles/Vol] 103 mmol/L Normal 98-107 [facility] Comment on above: Order Comment: 103.1 Performed By: #### L 501.9520, L501.60130, L501.5200, L3300.6400, L500.4050, L100.0100, L501.9310 ####[facility] [address] [place], [address] CO2 [Moles/Vol] 30.0 mmol/L Normal 21.0-32.0 [facility] Comment on above: Order Comment: 103.1 Performed By: #### L 501.9520, L501.05384, L501.5200, L3300.6400, L500.4050, L100.0100, L501.9310 ####[facility] [address] [place], [address] Creatinine [Mass/Vol] 1.41 mg/dL High 0.55-1.02 [facility] Comment on above: Order Comment: 103.1 Result Comment: The validity of the calculated GFR GFRAA in patients over70 years has not been determined. Clinical correlation isessential. Performed By: #### L 501.9520, L501.45051, L501.5200, L3300.6400, L500.4050, L100.0100, L501.9310 ####[facility] [address] [place], [address] EST GFR - AA 49 mL/min Low >60 [facility] Comment on above: Order Comment: 103.1 Result Comment: Afri can Nauruan GFR Calc Performed By: #### L 501.9520, L501.33578, L501.5200, L3300.6400, L500.4050, L100.0100, L501.9310 ####[facility] [address] [place], [address] GAP 4 Low 5-15 [facility] Comment on above: Order Comment: 103.1 Performed By: #### L 501.9520, L501.20252, L501.5200, L3300.6400, L500.4050, L100.0100, L501.9310 ####[facility] [address] [place], [address] GFR/1.73 sq M.predicted among non-blacks MDRD (S/P/Bld) [Vol rate/Area] 40 mL/min/{1.73_m2} Low >60 [facility] Comment on above: Order Comment: 103.1 Result Comment: Non- GFR Calc Performed By: #### L 501.9520, L501.21783, L501.5200, L3300.6400, L500.4050, L100.0100, L501.9310 ####[facility] [address] [place], [address] Globulin (S) [Mass/Vol] 4.2 g/dL Normal 2.2-4.2 [facility] Comment on above: Order Comment: 103.1 Performed By: #### L 501.9520, L501.74518, L501.5200, L3300.6400, L500.4050, L100.0100, L501.9310 ####[facility] [address] [place], [address] Glucose [Mass/Vol] 74 mg/dL Normal 74-106 [facility] Comment on above: Order Comment: 103.1 Performed By: #### L 501.9520, L501.21394, L501.5200, L3300.6400, L500.4050, L100.0100, L501.9310 ####[facility] [address] [place], [address] Potassium [Moles/Vol] 4.0 mmol/L Normal 3.5-5.1 [facility] Comment on above: Order Comment: 103.1 Performed By: #### L 501.9520, L501.03250, L501.5200, L3300.6400, L500.4050, L100.0100, L501.9310 ####[facility] [address] [place], [address] Sodium [Moles/Vol] 138 mmol/L Normal 136-145 [facility] Comment on above: Order Comment: 103.1 Performed By: #### L 501.9520, L501.41237, L501.5200, L3300.6400, L500.4050, L100.0100, L501.9310 ####[facility] [address] [place], [address] T PROT 6.0 g/dL Low 6.4-8.2 [facility] Comment on above: Order Comment: 103.1 Performed By: #### L 501.9520, L501.99874, L501.5200, L3300.6400, L500.4050, L100.0100, L501.9310 ####[facility] [address] [place], [address] Urea nitrogen [Mass/Vol] 22 mg/dL High 7-18 [facility] Comment on above: Order Comment: 103.1 Performed By: #### L 501.9520, L501.18067, L501.5200, L3300.6400, L500.4050, L100.0100, L501.9310 ####[facility] [address] [place], [place], [id number] Creatinine [Mass/Vol]Ordered By: Millie Massey on 05-27-2024 Serum or plasma creatinine measurement (mass/volume) 1.41 mg/dL High 0.55-1.02 [facility] Eosinophil percentageOrdered By: Millie Massey on 05-27-2024 Eosinophil percentage 2.3 % 0-5 [facility] Erythrocyte distribution wid th (RBC) [Ratio]Ordered By: Millie Massey on 05-27-2024 Erythrocyte distribution width ratio 17.2 % High 11.6-14.6 [facility] Erythrocyte distribution wid th standard deviationOrdered By: Millieblanche Massey on 05-27-2024 Erythrocyte distribution width standard deviation 62.0 fl High 35.1-43.9 [facility] Estimated glomerular filtrat ion rate (GFR) AmericanOrdered By: Millie Massey on 05-27-2024 Estimated glomerular filtration rate (GFR) 49 mL/min Low >60 [facility] Free T3on 05-27-2024 Free T3 [Mass/Vol] 0.9 pg/mL Low 2.18-3.98 [facility] Comment on above: Order Comment: 103.1 Performed By: #### L 501.9520, L501.26088, L501.5200, L3300.6400, L500.4050, L100.0100, L501.9310 ####[facility] [address] [place], [place], [phone] Free V0Ailefvz By: Millie ramirez on 05-27-2024 Free T3 0.9 pg/mL Low 2.18-3.98 [facility] Glomerular filtration rate ( GFR) estimationOrdered By: Millie Massey on 05-27-2024 Glomerular filtration rate (GFR) estimation 40 mL/min Low >60 [facility] Glucose measurementOrdered B y: Millie Massey on 05-27-2024 Glucose measurement 74 mg/dL 74-106 [facility] Hematocrit Auto (Bld) [Volum e fraction]Ordered By: Millie Massey on 05-27-2024 Automated blood hematocrit (percentage) 36.0 % Low 37-47 [facility] Hemoglobin measurementOrdere d By: Millie Massey on 05-27-2024 Hemoglobin measurement 10.4 g/dL Low 12.0-15.0 [facility] Immature granulocytes/100 WB C Auto (Bld)Ordered By: Millie Massey on 05-27-2024 Automated immature granulocyte percentage 1.000 % High 0.0-0.9 [facility] Lymphocytes Auto (Unsp spec) [#/Vol]Ordered By: Millieblanche Massey on 05-27-2024 Absolute lymphocyte count 0.62 X10^3/uL Low 0.83-4.51 [facility] Lymphocytes/100 WBC Auto (Un sp spec)Ordered By: Millie Massey on 05-27-2024 Automated lymphocyte count as percentage of total leukocytes 12.8 % Low 19-41 [facility] MCV (RBC) [Entitic vol]Order ed By: Millie Massey on 05-27-2024 MCV (mean corpuscular volume) determination 97.6 fL 81-99 [facility] Magnesiumon 05-27-2024 Magnesium [Mass/Vol] 2.0 mg/dL Normal 1.6-2.6 [facility] Comment on above: Order Comment: 103.1 Performed By: #### L 501.9539, L501.22905, L501.5200, L3300.6400, L500.4050, L100.0100, L501.9310 ####[facility] [address] [place], [place], [id number] Magnesium measurementOrdered By: Millieblanche Massey on 05-27-2024 Magnesium measurement 2.0 mg/dL 1.6-2.6 [facility] Mean corpuscular hemoglobin (MCH) determinationOrdered By: Millie Massey on 05-27-2024 Mean corpuscular hemoglobin (MCH) determination 28.2 pg 27.0-32.0 [facility] Mean corpuscular hemoglobin concentration (MCHC) determinationOrdered By: Millie Massey on 05-27-2024 Mean corpuscular hemoglobin concentration (MCHC) determination 28.9 g/dL Low 32-36 [facility] Mean platelet volume determi nationOrdered By: Millie Massey on 05-27-2024 Mean platelet volume determination 9.4 fl 6.2-12.0 [facility] Miscellaneous procedureOrder ed By: Millie Massey on 05-27-2024 Miscellaneous procedure See comment [facility] Monocyte percentageOrdered B y: Millie Massey on 05-27-2024 Monocyte percentage 9.3 % 0-10 [facility] Neutrophil percentageOrdered By: Millie Massey on 05-27-2024 Neutrophil percentage 73.8 % High 47-70 [facility] No Panel InformationOrdered By: Millie Massey on 05-27-2024 14 U/L Low 15-37 [facility] Nucleated red blood cell per centageOrdered By: Millie Massey on 05-27-2024 Nucleated red blood cell percentage 0 % 0-5 [facility] Platelet countOrdered By: Carter Massey on 05-27-2024 Platelet count 140 K/mm3 Low 150-450 [facility] Potassium measurementOrdered By: Millie Massey on 05-27-2024 Potassium measurement 4.0 mmol/L 3.5-5.1 [facility] RBC Auto (Bld) [#/Vol]Ordere d By: Millie Massey on 05-27-2024 Automated blood erythrocyte count 3.69 M/mm3 Low 4.2-5.4 [facility] Serum anion gap measurementO rdered By: Millie Massey on 05-27-2024 Serum anion gap measurement 4 Low 5-15 [facility] Serum globulin measurementOr dered By: Millie Massey on 05-27-2024 Serum globulin measurement 4.2 g/dL 2.2-4.2 [facility] Serum prealbumin measurement by immunoassayOrdered By: Millie Massey on 05-27-2024 Serum prealbumin measurement by immunoassay 10 mg/dL 10-36 [facility] Sodium levelOrdered By: Silvana Massey on 05-27-2024 Sodium level 138 mmol/L 136-145 [facility] T4 Total, Thyroxinon 024 T4 [Mass/Vol] 11.8 ug/dL Normal 4.8-13.9 [facility] Comment on above: Order Comment: 103.1 Performed By: #### L 501.9520, L501.36740, L501.5200, L3300.6400, L500.4050, L100.0100, L501.9310 ####[facility] [address] [place], [place], [id number] T4 [Mass/Vol]Ordered By: Lesli Massey on 05-27-2024 Serum or plasma thyroxine (T4) measurement (mass/volume) 11.8 ug/dL 4.8-13.9 [facility] TSH QnOrdered By: Millie little on 05-27-2024 Serum or plasma thyroid stimulating hormone (TSH) measurement (units/volume) 3.060 uIU/mL 0.358-3.74 0 [facility] Thyroid Stim Hormone (TSH)on 05-27-2024 TSH 3.060 uIU/mL Normal 0.358-3.74 0 [facility] Comment on above: Order Comment: 103.1 Performed By: #### L 501.9520, L501.72640, L501.5200, L3300.6400, L500.4050, L100.0100, L501.9310 ####[facility] [address] [place], [place], [id number] Total proteinOrdered By: Lesli Massey on 05-27-2024 Total protein 6.0 g/dL Low 6.4-8.2 [facility] Urea nitrogen [Mass/Vol]Orde red By: Millie Massey on 05-27-2024 Serum or plasma urea nitrogen measurement (mass/volume) 22 mg/dL High 7-18 [facility] White blood cell (WBC) count Ordered By: Millie Massey on 05-27-2024 White blood cell (WBC) count 4.8 K/mm3 4.4-11.0 [facility] Miscellaneous Lab Procedureo n 05-10-2024 MISC LAB TEST Normal [facility] Comment on above: Order Comment: [id number] 1 CYSTATIN C SERUM RT Result Comment: TEST RESULTS LIMITSCystatin C 3.68 High mg/L 0.72-1.16 ___ TESTING PERFORMED AT [facility]. ORIGINAL REPORT ON FILE IN LAB CONTAINS ADDITIONAL TEST SITE INFORMATION. Performed By: #### L 801.1541 ####[facility] [address] [place], [place], [id number] Surgery Visit Reporton 04-30 Surgery Visit Report Normal [facility] Basic Metabolic Profile (BMP )on 04-24-2024 BUN/CRE 11.9 RATIO Normal 10-20 [facility] Comment on above: Order Comment: 103 Performed By: #### L 500.2169, L501.9348, L501.9186, L501.9520, L100.0500 ####[facility] [address] [place], [place], [address] CA,Total 7.7 mg/dL Low 8.5-10.1 [facility] Comment on above: Order Comment: 103 Performed By: #### L 500.2500, L501.9310, L501.9186, L501.9520, L100.0500 ####[facility] [address] [place], [address] Chloride [Moles/Vol] 109 mmol/L High 98-107 [facility] Comment on above: Order Comment: 103 Performed By: #### L 500.2500, L501.9310, L501.9186, L501.9520, L100.0500 ####[facility] [address] [place], [address] CO2 [Moles/Vol] 29.0 mmol/L Normal 21.0-32.0 [facility] Comment on above: Order Comment: 103 Performed By: #### L 500.2500, L501.9310, L501.9186, L501.9520, L100.0500 ####[facility] [address] [place], [address] Creatinine [Mass/Vol] 1.77 mg/dL High 0.55-1.02 [facility] Comment on above: Order Comment: 103 Result Comment: The validity of the calculated GFR GFRAA in patients over70 years has not been determined. Clinical correlation isessential. Performed By: #### L 500.2500, L501.9310, L501.9186, L501.9520, L100.0500 ####[facility] [address] [place], [address] EST GFR - AA 37 mL/min Low >60 [facility] Comment on above: Order Comment: 103 Result Comment: Afri can Nauruan GFR Calc Performed By: #### L 500.2500, L501.9310, L501.9186, L501.9520, L100.0500 ####[facility] [address] [place], [address] GAP 2 Low 5-15 [facility] Comment on above: Order Comment: 103 Performed By: #### L 500.2500, L501.9310, L501.9186, L501.9520, L100.0500 ####[facility] [address] [place], [address] GFR/1.73 sq M.predicted among non-blacks MDRD (S/P/Bld) [Vol rate/Area] 31 mL/min/{1.73_m2} Low >60 [facility] Comment on above: Order Comment: 103 Result Comment: Non- GFR Calc Performed By: #### L 500.2500, L501.9310, L501.9186, L501.9520, L100.0500 ####[facility] [address] [place], [address] Glucose [Mass/Vol] 65 mg/dL Low 74-106 [facility] Comment on above: Order Comment: 103 Performed By: #### L 500.2500, L501.9310, L501.9186, L501.9520, L100.0500 ####[facility] [address] [place], [address] Potassium [Moles/Vol] 4.9 mmol/L Normal 3.5-5.1 [facility] Comment on above: Order Comment: 103 Performed By: #### L 500.2500, L501.9310, L501.9186, L501.9520, L100.0500 ####[facility] [address] [place], [address] Sodium [Moles/Vol] 140 mmol/L Normal 136-145 [facility] Comment on above: Order Comment: 103 Performed By: #### L 500.2500, L501.9310, L501.9186, L501.9520, L100.0500 ####[facility] [address] [place], [address] Urea nitrogen [Mass/Vol] 21 mg/dL High 7-18 [facility] Comment on above: Order Comment: 103 Performed By: #### L 500.2500, L501.9310, L501.9186, L501.9520, L100.0500 ####[facility] [address] [place], [address] Blood urea nitrogen (BUN)/cr eatinine ratioOrdered By: Ethan Rodriguez on 04-24-2024 Blood urea nitrogen (BUN)/creatinine ratio 11.9 RATIO 10- [facility] CBC-Complete Blood Cnt No Di ffon 04-24-2024 Erythrocyte distribution width (RBC) [Ratio] 18.4 % High 11.6-14.6 [facility] Comment on above: Order Comment: 103 Performed By: #### L 500.2500, L501.9310, L501.9186, L501.9520, L100.0500 ####[facility] [address] [place], [address] Hematocrit (Bld) [Volume fraction] 35.3 % Low 37-47 [facility] Comment on above: Order Comment: 103 Performed By: #### L 500.2500, L501.9310, L501.9186, L501.9520, L100.0500 ####[facility] [address] [place], [address] Hemoglobin (Bld) [Mass/Vol] 10.4 g/dL Low 12.0-15.0 [facility] Comment on above: Order Comment: 103 Performed By: #### L 500.2500, L501.9310, L501.9186, L501.9520, L100.0500 ####[facility] [address] [place], [address] MCH (RBC) [Entitic mass] 27.3 pg Normal 27.0-32.0 [facility] Comment on above: Order Comment: 103 Performed By: #### L 500.2500, L501.9310, L501.9186, L501.9520, L100.0500 ####[facility] [address] [place], [address] MCHC (RBC) [Mass/Vol] 29.5 g/dL Low 32-36 [facility] Comment on above: Order Comment: 103 Performed By: #### L 500.2500, L501.9310, L501.9186, L501.9520, L100.0500 ####[facility] [address] [place], [address] MCV (RBC) [Entitic vol] 92.7 fL Normal 81-99 [facility] Comment on above: Order Comment: 103 Performed By: #### L 500.2500, L501.9310, L501.9186, L501.9520, L100.0500 ####[facility] [address] [place], [address] Platelet mean volume (Bld) [Entitic vol] 11.0 fL Normal 6.2-12.0 [facility] Comment on above: Order Comment: 103 Performed By: #### L 500.2500, L501.9310, L501.9186, L501.9520, L100.0500 ####[facility] [address] [place], [address] Platelets (Bld) [#/Vol] 105 10*3/uL Low 150-450 [facility] Comment on above: Order Comment: 103 Performed By: #### L 500.2500, L501.9310, L501.9186, L501.9520, L100.0500 ####[facility] [address] [place], [address] RBC (Bld) [#/Vol] 3.81 10*6/uL Low 4.2-5.4 [facility] Comment on above: Order Comment: 103 Performed By: #### L 500.2500, L501.9310, L501.9186, L501.9520, L100.0500 ####[facility] [address] [place], [address] RDW SD 61.0 fl High 35.1-43.9 [facility] Comment on above: Order Comment: 103 Performed By: #### L 500.2500, L501.9310, L501.9186, L501.9520, L100.0500 ####[facility] [address] [place], [address] WBC (Bld) [#/Vol] 4.5 10*3/uL Normal 4.4-11.0 [facility] Comment on above: Order Comment: 103 Performed By: #### L 500.2500, L501.9310, L501.9186, L501.9520, L100.0500 ####[facility] [address] [place], [address] Calcium [Mass/Vol]Ordered By : Ethan Rodriguez on 04-24-2024 Serum or plasma calcium measurement (mass/volume) 7.7 mg/dL Low 8.5-10.1 [facility] Carbon dioxide measurementOr dered By: Ethan Rodriguez on 04-24-2024 Carbon dioxide measurement 29.0 mmol/L 21.0-32.0 [facility] Chloride measurementOrdered By: Ethan Rodriguez on 04-24-2024 Chloride measurement 109 mmol/L High 98-107 [facility] Creatinine [Mass/Vol]Ordered By: Ethan Rodriguez on 04-24-2024 Serum or plasma creatinine measurement (mass/volume) 1.77 mg/dL High 0.55-1.02 [facility] Erythrocyte distribution wid th (RBC) [Entitic vol]Ordered By: Ethan Rodriguez on 04-24-2024 Erythrocyte distribution width standard deviation 61.0 fl High 35.1-43.9 [facility] Erythrocyte distribution wid th (RBC) [Ratio]Ordered By: Ethan Rodriguez on 04-24-2024 Erythrocyte distribution width ratio 18.4 % High 11.6-14.6 [facility] Estimated glomerular filtrat ion rate (GFR) AmericanOrdered By: Ethan Rodriguez on 04-24-2024 Estimated glomerular filtration rate (GFR) 37 mL/min Low >60 [facility] Glomerular filtration rate ( GFR) estimationOrdered By: Ethan Rodriguez on 04-24-2024 Glomerular filtration rate (GFR) estimation 31 mL/min Low >60 [facility] Glucose measurementOrdered B y: Ethan Rodriguez on 04-24-2024 Glucose measurement 65 mg/dL Low 74-106 [facility] Hematocrit Auto (Bld) [Volum e fraction]Ordered By: Ethan Rodriguez on 04-24-2024 Automated blood hematocrit (percentage) 35.3 % Low 37-47 [facility] Hemoglobin measurementOrdere d By: Ethan Rodriguez on 04-24-2024 Hemoglobin measurement 10.4 g/dL Low 12.0-15.0 [facility] MCV (RBC) [Entitic vol]Order ed By: Ethan Rodriguez on 04-24-2024 MCV (mean corpuscular volume) determination 92.7 fL 81-99 [facility] Mean corpuscular hemoglobin (MCH) determinationOrdered By: Ethan Rodriguez on 04-24-2024 Mean corpuscular hemoglobin (MCH) determination 27.3 pg 27.0-32.0 [facility] Mean corpuscular hemoglobin concentration (MCHC) determinationOrdered By: Ethan Rodriguez on 04-24-2024 Mean corpuscular hemoglobin concentration (MCHC) determination 29.5 g/dL Low 32-36 [facility] Mean platelet volume determi nationOrdered By: Ethan Rodriguez on 04-24-2024 Mean platelet volume determination 11.0 fl 6.2-12.0 [facility] Platelet countOrdered By: Chester Rodriguez on 04-24-2024 Platelet count 105 K/mm3 Low 150-450 [facility] Potassium measurementOrdered By: Ethan Rodriguez on 04-24-2024 Potassium measurement 4.9 mmol/L 3.5-5.1 [facility] RBC Auto (Bld) [#/Vol]Ordere d By: Ethan Rodriguez on 04-24-2024 Automated blood erythrocyte count 3.81 M/mm3 Low 4.2-5.4 [facility] Serum anion gap measurementO rdered By: Ethan Rodriguez on 04-24-2024 Serum anion gap measurement 2 Low 5-15 [facility] Sodium levelOrdered By: Ethan Rodriguez on 04-24-2024 Sodium level 140 mmol/L 136-145 [facility] T3 IA [Mass/Vol]Ordered By: Ethan Rodriguez on 04-24-2024 Serum or plasma triiodothyronine measurement by immunoassay (mass/volume) 0.64 ng/mL 0.6-1.81 [facility] T3 Total - Triiodothyronineo n 04-24-2024 T3 Total 0.64 ng/mL Normal 0.6-1.81 [facility] Comment on above: Order Comment: 103 Performed By: #### L 500.2500, L501.9310, L501.9186, L501.9520, L100.0500 ####[facility] [id number] [place], [place], [id number] T4 Total, Thyroxinon 024 T4 [Mass/Vol] 6.1 ug/dL Normal 4.8-13.9 [facility] Comment on above: Order Comment: 103 Performed By: #### L 500.2500, L501.9310, L501.9186, L501.9520, L100.0500 ####[facility] [id number] [place], [place], [phone] T4 [Mass/Vol]Ordered By: Ava Rodriguez on 04-24-2024 Serum or plasma thyroxine (T4) measurement (mass/volume) 6.1 ug/dL 4.8-13.9 [facility] TSH QnOrdered By: Ethan calvert on 04-24-2024 Serum or plasma thyroid stimulating hormone (TSH) measurement (units/volume) 12.000 uIU/mL High 0.358-3.74 0 [facility] Thyroid Stim Hormone (TSH)on 04-24-2024 TSH 12.000 uIU/mL High 0.358-3.74 0 [facility] Comment on above: Order Comment: 103 Performed By: #### L 500.2500, L501.9310, L501.9186, L501.9520, L100.0500 ####[facility] [address] [place], [address] Urea nitrogen [Mass/Vol]Orde red By: Ethan Rodriguez on 04-24-2024 Serum or plasma urea nitrogen measurement (mass/volume) 21 mg/dL High - [facility] White blood cell (WBC) count Ordered By: Ethan Rodriguez on 04-24-2024 White blood cell (WBC) count 4.5 K/mm3 4.4-11.0 [facility] Basic Metabolic Profile (BMP )on 04-23-2024 BUN Normal - [facility] Comment on above: Order Comment: 103.1 Result Comment: UTO Performed By: #### L 500.2500, L100.0500 ####[facility] [address] [place], [address] BUN/CRE Normal 10-20 [facility] Comment on above: Order Comment: 103.1 Result Comment: UTO Performed By: #### L 500.2500, L100.0500 ####[facility] [address] [place], [address] CA,Total Normal 8.5-10.1 [facility] Comment on above: Order Comment: 103.1 Result Comment: UTO Performed By: #### L 500.2500, L100.0500 ####[facility] [address] [place], [address] CL Normal 98-107 [facility] Comment on above: Order Comment: 103.1 Result Comment: UTO Performed By: #### L 500.2500, L100.0500 ####[facility] [address] [place], [address] CO2 Normal 21.0-32.0 [facility] Comment on above: Order Comment: 103.1 Result Comment: UTO Performed By: #### L 500.2500, L100.0500 ####[facility] [address] [place], [address] CREAT,SERUM Normal 0.55-1.02 [facility] Comment on above: Order Comment: 103.1 Result Comment: UTO Performed By: #### L 500.2500, L100.0500 ####[facility] [address] [place], [address] EST GFR Normal >60 [facility] Comment on above: Order Comment: 103.1 Result Comment: UTO Performed By: #### L 500.2500, L100.0500 ####[facility] [address] [place], [address] EST GFR - AA Normal >60 [facility] Comment on above: Order Comment: 103.1 Result Comment: UTO Performed By: #### L 500.2500, L100.0500 ####[facility] [address] [place], [address] GAP Normal 5-15 [facility] Comment on above: Order Comment: 103.1 Result Comment: UTO Performed By: #### L 500.2500, L100.0500 ####[facility] [address] [place], [address] GLU Normal 74-106 [facility] Comment on above: Order Comment: 103.1 Result Comment: UTO Performed By: #### L 500.2500, L100.0500 ####[facility] [address] [place], [address] Potassium Normal 3.5-5.1 [facility] Comment on above: Order Comment: 103.1 Result Comment: UTO Performed By: #### L 500.2500, L100.0500 ####[facility] [address] [place], [address] Basic Metabolic Profile (BMP) Normal 136-145 [facility] Comment on above: Order Comment: 103.1 Result Comment: UTO Performed By: #### L 500.2500, L100.0500 ####[facility] [address] [place], [address] CBC-Complete Blood Cnt No Di ffon 04-23-2024 HCT Normal 37-47 [facility] Comment on above: Order Comment: 103.1 Result Comment: UTO Performed By: #### L 500.2500, L100.0500 ####[facility] [address] [place], [address] HGB Normal 12.0-15.0 [facility] Comment on above: Order Comment: 103.1 Result Comment: UTO Performed By: #### L 500.2500, L100.0500 ####[facility] [address] [place], [address] MCH Normal 27.0-32.0 [facility] Comment on above: Order Comment: 103.1 Result Comment: UTO Performed By: #### L 500.2500, L100.0500 ####[facility] [address] [place], [address] MCHC Normal 32-36 [facility] Comment on above: Order Comment: 103.1 Result Comment: UTO Performed By: #### L 500.2500, L100.0500 ####[facility] [address] [place], [address] MCV Normal 81-99 [facility] Comment on above: Order Comment: 103.1 Result Comment: UTO Performed By: #### L 500.2500, L100.0500 ####[facility] [address] [place], [address] PLT Normal 150-450 [facility] Comment on above: Order Comment: 103.1 Result Comment: UTO Performed By: #### L 500.2500, L100.0500 ####[facility] [address] [place], [address] RBC Normal 4.2-5.4 [facility] Comment on above: Order Comment: 103.1 Result Comment: UTO Performed By: #### L 500.2500, L100.0500 ####[facility] [address] [place], [address] RDW CV Normal 11.6-14.6 [facility] Comment on above: Order Comment: 103.1 Result Comment: UTO Performed By: #### L 500.2500, L100.0500 ####[facility] [address] [place], [address] RDW SD Normal 35.1-43.9 [facility] Comment on above: Order Comment: 103.1 Result Comment: UTO Performed By: #### L 500.2500, L100.0500 ####[facility] [address] [place], [address] WBC Normal 4.4-11.0 [facility] Comment on above: Order Comment: 103.1 Result Comment: UTO Performed By: #### L 500.2500, L100.0500 ####[facility] [address] [place], [address] ALP [Catalytic activity/Vol] Ordered By: Ethan Rodriguez on 04-17-2024 Serum or plasma alkaline phosphatase measurement 71 U/L 45-117 [facility] ALT [Catalytic activity/Vol] Ordered By: Ethan Rodriguez on 04-17-2024 Serum or plasma alanine aminotransferase (ALT) measurement 8 U/L Low 13-56 [facility] Albumin [Mass/Vol]Ordered By : Ethan Rodriguez on 04-17-2024 Serum or plasma albumin measurement (mass/volume) 1.7 g/dL Low 3.2-5.0 [facility] Albumin to globulin ratioOrd ered By: Ethan Rodriguez on 04-17-2024 Albumin to globulin ratio 0.4 RATIO Low 0.9-2.4 [facility] Ammoniaon 04-17-2024 Ammonia (P) [Moles/Vol] 22.0 umol/L Normal 11-32 [facility] Comment on above: Performed By: #### L 100.0500, L100.4500, L503.5510, L504.2610, L500.4050, M100.6795, M100.6796 ####[facility] [address] [place], [address] Bilirubin, totalOrdered By: Ethan Rodriguez on 04-17-2024 Bilirubin, total 0.40 mg/dL 0.20-1.00 [facility] Blood urea nitrogen (BUN)/cr eatinine ratioOrdered By: Ethan Rodriguez on 04-17-2024 Blood urea nitrogen (BUN)/creatinine ratio 18.1 RATIO 03-17 [facility] CBC-Complete Blood Cnt No Di ffon 04-17-2024 Erythrocyte distribution width (RBC) [Ratio] 17.9 % High 11.6-14.6 [facility] Comment on above: Performed By: #### L 100.0500, L100.4500, L503.5510, L504.2610, L500.4050, M100.6795, M100.6796 ####[facility] [address] [place], [address] Hematocrit (Bld) [Volume fraction] 37.4 % Normal 37-47 [facility] Comment on above: Performed By: #### L 100.0500, L100.4500, L503.5510, L504.2610, L500.4050, M100.6795, M100.6796 ####[facility] [address] [place], [address] Hemoglobin (Bld) [Mass/Vol] 10.9 g/dL Low 12.0-15.0 [facility] Comment on above: Performed By: #### L 100.0500, L100.4500, L503.5510, L504.2610, L500.4050, M100.6795, M100.6796 ####[facility] [address] [place], [address] MCH (RBC) [Entitic mass] 27.3 pg Normal 27.0-32.0 [facility] Comment on above: Performed By: #### L 100.0500, L100.4500, L503.5510, L504.2610, L500.4050, M100.6795, M100.6796 ####[facility] [address] [place], [address] MCHC (RBC) [Mass/Vol] 29.1 g/dL Low 32-36 [facility] Comment on above: Performed By: #### L 100.0500, L100.4500, L503.5510, L504.2610, L500.4050, M100.6795, M100.6796 ####[facility] [address] [place], [address] MCV (RBC) [Entitic vol] 93.5 fL Normal 81-99 [facility] Comment on above: Performed By: #### L 100.0500, L100.4500, L503.5510, L504.2610, L500.4050, M100.6795, M100.6796 ####[facility] [address] [place], [address] Platelet mean volume (Bld) [Entitic vol] 9.8 fL Normal 6.2-12.0 [facility] Comment on above: Performed By: #### L 100.0500, L100.4500, L503.5510, L504.2610, L500.4050, M100.6795, M100.6796 ####[facility] [address] [place], [address] Platelets (Bld) [#/Vol] 92 10*3/uL Low 150-450 [facility] Comment on above: Performed By: #### L 100.0500, L100.4500, L503.5510, L504.2610, L500.4050, M100.6795, M100.6796 ####[facility] [address] [place], [address] RBC (Bld) [#/Vol] 4.00 10*6/uL Low 4.2-5.4 [facility] Comment on above: Performed By: #### L 100.0500, L100.4500, L503.5510, L504.2610, L500.4050, M100.6795, M100.6796 ####[facility] [address] [place], [address] RDW SD 61.1 fl High 35.1-43.9 [facility] Comment on above: Performed By: #### L 100.0500, L100.4500, L503.5510, L504.2610, L500.4050, M100.6795, M100.6796 ####[facility] [address] [place], [address] WBC (Bld) [#/Vol] 5.5 10*3/uL Normal 4.4-11.0 [facility] Comment on above: Performed By: #### L 100.0500, L100.4500, L503.5510, L504.2610, L500.4050, M100.6795, M100.6796 ####[facility] [address] [place], [address] CDIFF (PCR)on 04-17-2024 CDIFF Normal [facility] Comment on above: Performed By: #### L 100.0500, L100.4500, L503.5510, L504.2610, L500.4050, M100.6795, M100.6796 ####[facility] [address] [place], [address] Calcium [Mass/Vol]Ordered By : Ethan Rodriguez on 04-17-2024 Serum or plasma calcium measurement (mass/volume) 7.7 mg/dL Low 8.5-10.1 [facility] Carbon dioxide measurementOr dered By: Ethan Rodriguez on 04-17-2024 Carbon dioxide measurement 26.0 mmol/L 21.0-32.0 [facility] Chloride measurementOrdered By: Ethan Rodriguez on 04-17-2024 Chloride measurement 105 mmol/L 98-107 [facility] Clostridium Diff Toxin/Agon 04-17-2024 CDIFF (EIA) Normal [facility] Comment on above: Performed By: #### L 100.0500, L100.4500, L503.5510, L504.2610, L500.4050, M100.6795, M100.6796 ####[facility] [address] [place], [place], [id number] Comprehensive Metabolic Prof ilon 04-17-2024 Albumin [Mass/Vol] 1.7 g/dL Low 3.2-5.0 [facility] Comment on above: Order Comment: 1 Performed By: #### L 100.0500, L100.4500, L503.5510, L504.2610, L500.4050, M100.6795, M100.6796 ####[facility] [address] [place], [place], [address] Albumin/Globulin [Mass ratio] 0.4 {ratio} Low 0.9-2.4 [facility] Comment on above: Order Comment: 1 Performed By: #### L 100.0500, L100.4500, L503.5510, L504.2610, L500.4050, M100.6795, M100.6796 ####[facility] [address] [place], [address] ALK P 71 U/L Normal 45-117 [facility] Comment on above: Order Comment: 1 Performed By: #### L 100.0500, L100.4500, L503.5510, L504.2610, L500.4050, M100.6795, M100.6796 ####[facility] [address] [place], [address] ALT [Catalytic activity/Vol] 8 U/L Low 13-56 [facility] Comment on above: Order Comment: 1 Performed By: #### L 100.0500, L100.4500, L503.5510, L504.2610, L500.4050, M100.6795, M100.6796 ####[facility] [address] [place], [address] AST [Catalytic activity/Vol] 19 U/L Normal 15-37 [facility] Comment on above: Order Comment: 1 Result Comment: Slig ht Hemolysis, Result may be falsely increased. Performed By: #### L 100.0500, L100.4500, L503.5510, L504.2610, L500.4050, M100.6795, M100.6796 ####[facility] [address] [place], [address](361) Bilirubin [Mass/Vol] 0.40 mg/dL Normal 0.20-1.00 [facility] Comment on above: Order Comment: 1 Result Comment: For patients on eltrombopag therapy, use of Dimension [place] TBIL is not recommended. Performed By: #### L 100.0500, L100.4500, L503.5510, L504.2610, L500.4050, M100.6795, M100.6796 ####[facility] [address] [place], [address] BUN/CRE 18.1 RATIO Normal 10-20 [facility] Comment on above: Order Comment: 1 Performed By: #### L 100.0500, L100.4500, L503.5510, L504.2610, L500.4050, M100.6795, M100.6796 ####[facility] [address] [place], [address] CA,Total 7.7 mg/dL Low 8.5-10.1 [facility] Comment on above: Order Comment: 1 Performed By: #### L 100.0500, L100.4500, L503.5510, L504.2610, L500.4050, M100.6795, M100.6796 ####[facility] [address] [place], [address] Chloride [Moles/Vol] 105 mmol/L Normal 98-107 [facility] Comment on above: Order Comment: 1 Performed By: #### L 100.0500, L100.4500, L503.5510, L504.2610, L500.4050, M100.6795, M100.6796 ####[facility] [address] [place], [address] CO2 [Moles/Vol] 26.0 mmol/L Normal 21.0-32.0 [facility] Comment on above: Order Comment: 1 Performed By: #### L 100.0500, L100.4500, L503.5510, L504.2610, L500.4050, M100.6795, M100.6796 ####[facility] [address] [place], [address] Creatinine [Mass/Vol] 2.10 mg/dL High 0.55-1.02 [facility] Comment on above: Order Comment: 1 Result Comment: The validity of the calculated GFR GFRAA in patients over70 years has not been determined. Clinical correlation isessential. Performed By: #### L 100.0500, L100.4500, L503.5510, L504.2610, L500.4050, M100.6795, M100.6796 ####[facility] [address] [place], [address] EST GFR - AA 31 mL/min Low >60 [facility] Comment on above: Order Comment: 1 Result Comment: Afri can Nauruan GFR Calc Performed By: #### L 100.0500, L100.4500, L503.5510, L504.2610, L500.4050, M100.6795, M100.6796 ####[facility] [address] [place], [address] GAP 6 Normal 5-15 [facility] Comment on above: Order Comment: 1 Performed By: #### L 100.0500, L100.4500, L503.5510, L504.2610, L500.4050, M100.6795, M100.6796 ####[facility] [address] [place], [address] GFR/1.73 sq M.predicted among non-blacks MDRD (S/P/Bld) [Vol rate/Area] 25 mL/min/{1.73_m2} Low >60 [facility] Comment on above: Order Comment: 1 Result Comment: Non- GFR Calc Performed By: #### L 100.0500, L100.4500, L503.5510, L504.2610, L500.4050, M100.6795, M100.6796 ####[facility] [address] [place], [address] Globulin (S) [Mass/Vol] 4.0 g/dL Normal 2.2-4.2 [facility] Comment on above: Order Comment: 1 Performed By: #### L 100.0500, L100.4500, L503.5510, L504.2610, L500.4050, M100.6795, M100.6796 ####[facility] [address] [place], [address] Glucose [Mass/Vol] 70 mg/dL Low 74-106 [facility] Comment on above: Order Comment: 1 Performed By: #### L 100.0500, L100.4500, L503.5510, L504.2610, L500.4050, M100.6795, M100.6796 ####[facility] [address] [place], [address] Potassium [Moles/Vol] 4.2 mmol/L Normal 3.5-5.1 [facility] Comment on above: Order Comment: 1 Result Comment: Slig ht Hemolysis, Result may be falsely increased. Performed By: #### L 100.0500, L100.4500, L503.5510, L504.2610, L500.4050, M100.6795, M100.6796 ####[facility] [address] [place], [address] Sodium [Moles/Vol] 137 mmol/L Normal 136-145 [facility] Comment on above: Order Comment: 1 Performed By: #### L 100.0500, L100.4500, L503.5510, L504.2610, L500.4050, M100.6795, M100.6796 ####[facility] [address] [place], [address] T PROT 5.7 g/dL Low 6.4-8.2 [facility] Comment on above: Order Comment: 1 Performed By: #### L 100.0500, L100.4500, L503.5510, L504.2610, L500.4050, M100.6795, M100.6796 ####[facility] [address] [place], [address] Urea nitrogen [Mass/Vol] 38 mg/dL High 7-18 [facility] Comment on above: Order Comment: 1 Performed By: #### L 100.0500, L100.4500, L503.5510, L504.2610, L500.4050, M100.6795, M100.6796 ####[facility] [address] [place], [address] Creatinine [Mass/Vol]Ordered By: Ethan Rodriguez on 04-17-2024 Serum or plasma creatinine measurement (mass/volume) 2.10 mg/dL High 0.55-1.02 [facility] Differential Commenton 04-17 SMEAR COMMENT COMMENT Normal [facility] Comment on above: Result Comment: PLT POPULATION - MODERATELY DECREASED. Performed By: #### L 100.0500, L100.4500, L503.5510, L504.2610, L500.4050, M100.6795, M100.6796 ####[facility] [address] [place], [address] Erythrocyte distribution wid th (RBC) [Entitic vol]Ordered By: Ethan Rodriguez on 04-17-2024 Erythrocyte distribution width standard deviation 61.1 fl High 35.1-43.9 [facility] Erythrocyte distribution wid th (RBC) [Ratio]Ordered By: Ethan Rodriguez on 04-17-2024 Erythrocyte distribution width ratio 17.9 % High 11.6-14.6 [facility] Estimated glomerular filtrat ion rate (GFR) AmericanOrdered By: Ethan Rodriguez on 04-17-2024 Estimated glomerular filtration rate (GFR) 31 mL/min Low >60 [facility] Glomerular filtration rate ( GFR) estimationOrdered By: Ethan Rodriguez on 04-17-2024 Glomerular filtration rate (GFR) estimation 25 mL/min Low >60 [facility] Glucose measurementOrdered B y: Ethan Rodriguez on 04-17-2024 Glucose measurement 70 mg/dL Low 74-106 [facility] Hematocrit Auto (Bld) [Volum e fraction]Ordered By: Ethan Rodriguez on 04-17-2024 Automated blood hematocrit (percentage) 37.4 % 37-47 [facility] Hemoglobin measurementOrdere d By: Ethan Rodriguez on 04-17-2024 Hemoglobin measurement 10.9 g/dL Low 12.0-15.0 [facility] LDHon 04-17-2024 LDH 237 U/L Normal 84-246 [facility] Comment on above: Order Comment: 1 Result Comment: Slig ht Hemolysis, Result may be falsely increased. Performed By: #### L 100.0500, L100.4500, L503.5510, L504.2610, L500.4050, M100.6795, M100.6796 ####[facility] [address] [place], [address] Lactate dehydrogenase (LDH) measurementOrdered By: Ethan Rodriguez on 04-17-2024 Lactate dehydrogenase (LDH) measurement 237 U/L 84-246 [facility] MCV (RBC) [Entitic vol]Order ed By: Ethan Rodriguez on 04-17-2024 MCV (mean corpuscular volume) determination 93.5 fL 81-99 [facility] Manual differential comment Horace (Bld) [Interp]Ordered By: Ethan Rodriguez on 04-17-2024 Blood manual differential comment interpretation (narrative result) COMMENT [facility] Mean corpuscular hemoglobin (MCH) determinationOrdered By: Ethan Rodriguez on 04-17-2024 Mean corpuscular hemoglobin (MCH) determination 27.3 pg 27.0-32.0 [facility] Mean corpuscular hemoglobin concentration (MCHC) determinationOrdered By: Ethan Rodriguez on 04-17-2024 Mean corpuscular hemoglobin concentration (MCHC) determination 29.1 g/dL Low 32-36 [facility] Mean platelet volume determi nationOrdered By: Ethan Rodriguez on 04-17-2024 Mean platelet volume determination 9.8 fl 6.2-12.0 [facility] No Panel InformationOrdered By: Ethan Rodriguez on 04-17-2024 19 U/L 15-37 [facility] Platelet countOrdered By: Chester Rodriguez on 04-17-2024 Platelet count 92 K/mm3 Low 150-450 [facility] Potassium measurementOrdered By: Ethan Rodriguez on 04-17-2024 Potassium measurement 4.2 mmol/L 3.5-5.1 [facility] RBC Auto (Bld) [#/Vol]Ordere d By: Ethan Rodriguez on 04-17-2024 Automated blood erythrocyte count 4.00 M/mm3 Low 4.2-5.4 [facility] Serum anion gap measurementO rdered By: Ethan Rodriguez on 04-17-2024 Serum anion gap measurement 6 5-15 [facility] Serum globulin measurementOr dered By: Ethan Rodriguez on 04-17-2024 Serum globulin measurement 4.0 g/dL 2.2-4.2 [facility] Sodium levelOrdered By: Ethan Rodriguez on 04-17-2024 Sodium level 137 mmol/L 136-145 [facility] Total proteinOrdered By: Ava Rodriguez on 04-17-2024 Total protein 5.7 g/dL Low 6.4-8.2 [facility] Urea nitrogen [Mass/Vol]Orde red By: Ethan Rodriguez on 04-17-2024 Serum or plasma urea nitrogen measurement (mass/volume) 38 mg/dL High 12-13 [facility] Venous blood ammonia measure mentOrdered By: Ethan Rodriguez on 04-17-2024 Venous blood ammonia measurement 22.0 umol/L [facility] White blood cell (WBC) count Ordered By: Ethan Rodriguez on 04-17-2024 White blood cell (WBC) count 5.5 K/mm3 4.4-11.0 [facility] C. difficile Ql (Stl)Ordered By: Ethan Rodriguez on 04-16-2024 Stool Clostridium difficile detection Toxigenic C. difficile Abnormal [facility] Miscellaneous procedureOrder ed By: Angie Torres on 04-15-2024 Miscellaneous procedure See comment [facility] CBC-Complete Blood Cnt No Di ffon 04-12-2024 Erythrocyte distribution width (RBC) [Ratio] 17.7 % High 11.6-14.6 [facility] Comment on above: Order Comment: 103-1 Performed By: #### L 500.4050, L100.0500 ####[facility] [address] [place], [place], [id number] Hematocrit (Bld) [Volume fraction] 36.0 % Low 37-47 [facility] Comment on above: Order Comment: 103-1 Performed By: #### L 500.4050, L100.0500 ####[facility] [address] [place], [address] Hemoglobin (Bld) [Mass/Vol] 10.7 g/dL Low 12.0-15.0 [facility] Comment on above: Order Comment: 103-1 Performed By: #### L 500.4050, L100.0500 ####[facility] [address] [place], [address] MCH (RBC) [Entitic mass] 27.3 pg Normal 27.0-32.0 [facility] Comment on above: Order Comment: 103-1 Performed By: #### L 500.4050, L100.0500 ####[facility] [address] [place], [address] MCHC (RBC) [Mass/Vol] 29.7 g/dL Low 32-36 [facility] Comment on above: Order Comment: 103-1 Performed By: #### L 500.4050, L100.0500 ####[facility] [address] [place], [address] MCV (RBC) [Entitic vol] 91.8 fL Normal 81-99 [facility] Comment on above: Order Comment: 103-1 Performed By: #### L 500.4050, L100.0500 ####[facility] [address] [place], [address] Platelet mean volume (Bld) [Entitic vol] 9.2 fL Normal 6.2-12.0 [facility] Comment on above: Order Comment: 103-1 Performed By: #### L 500.4050, L100.0500 ####[facility] [address] [place], [address] Platelets (Bld) [#/Vol] 133 10*3/uL Low 150-450 [facility] Comment on above: Order Comment: 103-1 Performed By: #### L 500.4050, L100.0500 ####[facility] [address] [place], [address] RBC (Bld) [#/Vol] 3.92 10*6/uL Low 4.2-5.4 [facility] Comment on above: Order Comment: 103-1 Performed By: #### L 500.4050, L100.0500 ####[facility] [address] [place], [address] RDW SD 59.2 fl High 35.1-43.9 [facility] Comment on above: Order Comment: 103-1 Performed By: #### L 500.4050, L100.0500 ####[facility] [address] [place], [address] WBC (Bld) [#/Vol] 11.4 10*3/uL High 4.4-11.0 [facility] Comment on above: Order Comment: 103-1 Performed By: #### L 500.4050, L100.0500 ####[facility] [address] [place], [address] Comprehensive Metabolic Prof ilon 04-12-2024 Albumin [Mass/Vol] 1.7 g/dL Low 3.2-5.0 [facility] Comment on above: Order Comment: 103-1 Performed By: #### L 500.4050, L100.0500 ####[facility] [address] [place], [address] Albumin/Globulin [Mass ratio] 0.4 {ratio} Low 0.9-2.4 [facility] Comment on above: Order Comment: 103-1 Performed By: #### L 500.4050, L100.0500 ####[facility] [address] [place], [address] ALK P 60 U/L Normal 45-117 [facility] Comment on above: Order Comment: 103-1 Performed By: #### L 500.4050, L100.0500 ####[facility] [address] [place], [address] ALT [Catalytic activity/Vol] 10 U/L Low 13-56 [facility] Comment on above: Order Comment: 103-1 Performed By: #### L 500.4050, L100.0500 ####[facility] [address] [place], [address] AST [Catalytic activity/Vol] 13 U/L Low 15-37 [facility] Comment on above: Order Comment: 103-1 Performed By: #### L [id number], L100.0500 ####[facility] [address] [place], [address] Bilirubin [Mass/Vol] 0.40 mg/dL Normal 0.20-1.00 [facility] Comment on above: Order Comment: 103-1 Result Comment: For patients on eltrombopag therapy, use of Dimension [place] TBIL is not recommended. Performed By: #### L 500.4050, L100.0500 ####[facility] [address] [place], [address] BUN/CRE 22.6 RATIO High 10-20 [facility] Comment on above: Order Comment: 103-1 Performed By: #### L 500.4050, L100.0500 ####[facility] [address] [place], [address] CA,Total 7.8 mg/dL Low 8.5-10.1 [facility] Comment on above: Order Comment: 103-1 Performed By: #### L 500.4050, L100.0500 ####[facility] [address] [place], [address] Chloride [Moles/Vol] 102 mmol/L Normal 98-107 [facility] Comment on above: Order Comment: 103-1 Performed By: #### L 500.4050, L100.0500 ####[facility] [address] [place], [address] CO2 [Moles/Vol] 28.0 mmol/L Normal 21.0-32.0 [facility] Comment on above: Order Comment: 103-1 Performed By: #### L 500.4050, L100.0500 ####[facility] [address] [place], [address] Creatinine [Mass/Vol] 2.35 mg/dL High 0.55-1.02 [facility] Comment on above: Order Comment: Result Comment: The validity of the calculated GFR GFRAA in patients over70 years has not been determined. Clinical correlation isessential. Performed By: #### L 500.4050, L100.0500 ####[facility] [address] [place], [address] EST GFR - AA 27 mL/min Low >60 [facility] Comment on above: Order Comment: Result Comment: Afri can Nauruan GFR Calc Performed By: #### L 500.4050, L100.0500 ####[facility] [address] [place], [address] GAP 6 Normal 5-15 [facility] Comment on above: Order Comment: Performed By: #### L 500.4050, L100.0500 ####[facility] [address] [place], [address] GFR/1.73 sq M.predicted among non-blacks MDRD (S/P/Bld) [Vol rate/Area] 22 mL/min/{1.73_m2} Low >60 [facility] Comment on above: Order Comment: Result Comment: Non- GFR Calc Performed By: #### L 500.4050, L100.0500 ####[facility] [address] [place], [address] Globulin (S) [Mass/Vol] 4.0 g/dL Normal 2.2-4.2 [facility] Comment on above: Order Comment: Performed By: #### L 500.4050, L100.0500 ####[facility] [address] [place], [address] Glucose [Mass/Vol] 88 mg/dL Normal 74-106 [facility] Comment on above: Order Comment: 103-1 Performed By: #### L 500.4050, L100.0500 ####[facility] [address] [place], [address] Potassium [Moles/Vol] 4.0 mmol/L Normal 3.5-5.1 [facility] Comment on above: Order Comment: 103-1 Performed By: #### L 500.4050, L100.0500 ####[facility] [address] [place], [address] Sodium [Moles/Vol] 136 mmol/L Normal 136-145 [facility] Comment on above: Order Comment: 103-1 Performed By: #### L 500.4050, L100.0500 ####[facility] [address] [place], [address] T PROT 5.7 g/dL Low 6.4-8.2 [facility] Comment on above: Order Comment: 103-1 Performed By: #### L 500.4050, L100.0500 ####[facility] [address] [place], [address] Urea nitrogen [Mass/Vol] 53 mg/dL High 7-18 [facility] Comment on above: Order Comment: 103-1 Performed By: #### L 500.4050, L100.0500 ####[facility] [address] [place], [address] Urine Cultureon 04-12-2024 [facility] Presumptive C albica ns [place] Count 11,000-25,000 Normal [facility] Comment on above: Performed By: #### M 100.2200 ####[facility] [address] [place], [address] Abdomen/Pelvis without Conto n 04-11-2024 Abdomen/Pelvis without Cont Normal [facility] Basic Metabolic Profile (BMP )on 04-11-2024 BUN/CRE 18.3 RATIO Normal 10-20 [facility] Comment on above: Performed By: #### L 509.7000, L100.0100, L500.2500 ####[facility] [address] [place], [address] CA,Total 7.6 mg/dL Low 8.5-10.1 [facility] Comment on above: Performed By: #### L 509.7000, L100.0100, L500.2500 ####[facility] [address] [place], [address] Chloride [Moles/Vol] 100 mmol/L Normal 98-107 [facility] Comment on above: Performed By: #### L 509.7000, L100.0100, L500.2500 ####[facility] [address] [place], [address] CO2 [Moles/Vol] 31.0 mmol/L Normal 21.0-32.0 [facility] Comment on above: Performed By: #### L 509.7000, L100.0100, L500.2500 ####[facility] [address] [place], [address] Creatinine [Mass/Vol] 2.13 mg/dL High 0.55-1.02 [facility] Comment on above: Result Comment: The validity of the calculated GFR GFRAA in patients over70 years has not been determined. Clinical correlation isessential. Performed By: #### L 509.7000, L100.0100, L500.2500 ####[facility] [address] [place], [address] ECRCL 23.69 ml/min Normal [facility] Comment on above: Performed By: #### L 509.7000, L100.0100, L500.2500 ####[facility] [address] [place], [address] EST GFR - AA 30 mL/min Low >60 [facility] Comment on above: Result Comment: Afri can Nauruan GFR Calc Performed By: #### L 509.7000, L100.0100, L500.2500 ####[facility] [address] [place], [address] GAP 5 Normal 5-15 [facility] Comment on above: Performed By: #### L 509.7000, L100.0100, L500.2500 ####[facility] [address] [place], [address] GFR/1.73 sq M.predicted among non-blacks MDRD (S/P/Bld) [Vol rate/Area] 25 mL/min/{1.73_m2} Low >60 [facility] Comment on above: Result Comment: Non- GFR Calc Performed By: #### L 509.7000, L100.0100, L500.2500 ####[facility] [address] [place], [address] Glucose [Mass/Vol] 87 mg/dL Normal 74-106 [facility] Comment on above: Performed By: #### L 509.7000, L100.0100, L500.2500 ####[facility] [address] [place], [address] Potassium [Moles/Vol] 3.9 mmol/L Normal 3.5-5.1 [facility] Comment on above: Performed By: #### L 509.7000, L100.0100, L500.2500 ####[facility] [address] [place], [address] Sodium [Moles/Vol] 137 mmol/L Normal 136-145 [facility] Comment on above: Performed By: #### L 509.7000, L100.0100, L500.2500 ####[facility] [address] [place], [address] Urea nitrogen [Mass/Vol] 39 mg/dL High 7-18 [facility] Comment on above: Performed By: #### L 509.7000, L100.0100, L500.2500 ####[facility] [address] [place], [address] CBC W/Diff, Automatedon 03-29 PLT EST ADEQUATE Normal ADEQ [facility] Comment on above: Performed By: #### L 509.7000, L100.0100, L500.2500 ####[facility] [address] [place], [address] RED CELL MORPH NORM C+C Normal NORM C C [facility] Comment on above: Performed By: #### L 509.7000, L100.0100, L500.2500 ####[facility] [address] [place], [address] SMEAR COMMENT SCANNED Normal [facility] Comment on above: Result Comment: LEFT SHIFT: BANDS PRESENT 2+ Performed By: #### L 509.7000, L100.0100, L500.2500 ####[facility] [address] [place], [address] Chest 1 View (Portable)on Chest 1 View (Portable) Normal [facility] Emergency Department Summary on 04-11-2024 Emergency Department Summary Normal [facility] M100.678on 04-11-2024 M100.678 Pending SARS-CoV-2 (COVID 19) Negative INFLUENZA A Negative INFLUENZA B Negative RSV PCR Negative Normal [facility] Comment on above: Performed By: #### M 100.678 ####[facility] [address] [place], [address] Procalcitoninon 04-11-2024 Procalcitonin 0.62 ng/mL High 0.00-0.09 [facility] Comment on above: Result Comment: A pr ocalcitonin (PCT) level above 2.0 ng/mL on the first day of ICU admission is associated with a high risk for progression to severe sepsis and/or septic shock. A PCT level below 0.5 ng/mL on the first day of ICU admission is associated with a low risk for progression to severe and/or septic shock. Note: Concentrations <0.5 ng/mL do not exclude an infection on account of localized infections (without systemic signs) which can be associated with such low concentrations, or a systemic infection in its initial stages (<6 hours). Furthermore, increased procalcitonin can occur without infection. PCT concentrations between 0.5 and 2.0 ng/mL should be interpreted taking into account the patient's history. It is recommended to retest PCT within 6-24 hours if any concentrations <2 ng/mL are obtained. Performed By: #### L 509.7000, L100.0100, L500.2500 ####[facility] [address] [facility] [place], [address] Urinalysis, Completeon 04-11 BACTERIA 1+ /hpf Normal None Seen [facility] Comment on above: Order Comment: COLOR OF URINE MAY AFFECT DIPSTICK RESULTS.AGRICULTURE LABORER TO SPECIFY Performed By: #### L 400.0001 ####[facility] [address] [facility] [place], [address] RBC 0-5 SEEN Normal 0-5 [facility] Comment on above: Order Comment: COLOR OF URINE MAY AFFECT DIPSTICK RESULTS.AGRICULTURE LABORER TO SPECIFY Performed By: #### L 400.0001 ####[facility] [address] [facility] [address] WBC 10-25 SEEN Normal 0-5 [facility] Comment on above: Order Comment: COLOR OF URINE MAY AFFECT DIPSTICK RESULTS.AGRICULTURE LABORER TO SPECIFY Performed By: #### L 400.0001 ####[facility] [address] [place], [address] EPI,SQUAMOUS 0 SEEN Normal 5-10 [facility] Comment on above: Order Comment: COLOR OF URINE MAY AFFECT DIPSTICK RESULTS.AGRICULTURE LABORER TO SPECIFY Performed By: #### L 400.0001 ####[facility] [address] [place], [address] Mucus Ql (Urine sed) 0 SEEN Normal [facility] Comment on above: Order Comment: COLOR OF URINE MAY AFFECT DIPSTICK RESULTS.AGRICULTURE LABORER TO SPECIFY Performed By: #### L 400.0001 ####[facility] [address] [place], [address] Basic Metabolic Profile (BMP )on 04-04-2024 BUN/CRE 11.5 RATIO Normal 10-20 [facility] Comment on above: Order Comment: 103.1 Performed By: #### L 500.2500, L100.0500 ####[facility] [address] [place], [address] CA,Total 8.1 mg/dL Low 8.5-10.1 [facility] Comment on above: Order Comment: 103.1 Performed By: #### L 500.2500, L100.0500 ####[facility] [address] [place], [address] Chloride [Moles/Vol] 99 mmol/L Normal 98-107 [facility] Comment on above: Order Comment: 103.1 Performed By: #### L 500.2500, L100.0500 ####[facility] [address] [place], [address] CO2 [Moles/Vol] 33.0 mmol/L High 21.0-32.0 [facility] Comment on above: Order Comment: 103.1 Performed By: #### L 500.2500, L100.0500 ####[facility] [address] [place], [address] Creatinine [Mass/Vol] 1.65 mg/dL High 0.55-1.02 [facility] Comment on above: Order Comment: 103.1 Result Comment: The validity of the calculated GFR GFRAA in patients over70 years has not been determined. Clinical correlation isessential. Performed By: #### L 500.2500, L100.0500 ####[facility] [address] [place], [address] EST GFR - AA 41 mL/min Low >60 [facility] Comment on above: Order Comment: 103.1 Result Comment: Afri can Nauruan GFR Calc Performed By: #### L 500.2500, L100.0500 ####[facility] [address] [place], [address] GAP 5 Normal 5-15 [facility] Comment on above: Order Comment: 103.1 Performed By: #### L 500.2500, L100.0500 ####[facility] [address] [place], [address] GFR/1.73 sq M.predicted among non-blacks MDRD (S/P/Bld) [Vol rate/Area] 34 mL/min/{1.73_m2} Low >60 [facility] Comment on above: Order Comment: 103.1 Result Comment: Non- GFR Calc Performed By: #### L 500.2500, L100.0500 ####[facility] [address] [place], [address] Glucose [Mass/Vol] 61 mg/dL Low 74-106 [facility] Comment on above: Order Comment: 103.1 Performed By: #### L 500.2500, L100.0500 ####[facility] [address] [place], [address] Potassium [Moles/Vol] 3.7 mmol/L Normal 3.5-5.1 [facility] Comment on above: Order Comment: 103.1 Performed By: #### L 500.2500, L100.0500 ####[facility] [address] [place], [address] Sodium [Moles/Vol] 137 mmol/L Normal 136-145 [facility] Comment on above: Order Comment: 103.1 Performed By: #### L 500.2500, L100.0500 ####[facility] [address] [place], [address] Urea nitrogen [Mass/Vol] 19 mg/dL High 7-18 [facility] Comment on above: Order Comment: 103.1 Performed By: #### L 500.2500, L100.0500 ####[facility] [address] [place], [address] CBC-Complete Blood Cnt No Di ffon 04-04-2024 Erythrocyte distribution width (RBC) [Ratio] 16.9 % High 11.6-14.6 [facility] Comment on above: Order Comment: 103.1 Performed By: #### L 500.2500, L100.0500 ####[facility] [address] [place], [address] Hematocrit (Bld) [Volume fraction] 35.8 % Low 37-47 [facility] Comment on above: Order Comment: 103.1 Performed By: #### L 500.2500, L100.0500 ####[facility] [address] [place], [address] Hemoglobin (Bld) [Mass/Vol] 10.0 g/dL Low 12.0-15.0 [facility] Comment on above: Order Comment: 103.1 Performed By: #### L 500.2500, L100.0500 ####[facility] [address] [place], [address] MCH (RBC) [Entitic mass] 27.3 pg Normal 27.0-32.0 [facility] Comment on above: Order Comment: 103.1 Performed By: #### L 500.2500, L100.0500 ####[facility] [address] [place], [address] MCHC (RBC) [Mass/Vol] 27.9 g/dL Low 32-36 [facility] Comment on above: Order Comment: 103.1 Performed By: #### L 500.2500, L100.0500 ####[facility] [address] [place], [address] MCV (RBC) [Entitic vol] 97.8 fL Normal 81-99 [facility] Comment on above: Order Comment: 103.1 Performed By: #### L 500.2500, L100.0500 ####[facility] [address] [place], [address] Platelet mean volume (Bld) [Entitic vol] 9.9 fL Normal 6.2-12.0 [facility] Comment on above: Order Comment: 103.1 Performed By: #### L 500.2500, L100.0500 ####[facility] [address] [place], [address] Platelets (Bld) [#/Vol] 202 10*3/uL Normal 150-450 [facility] Comment on above: Order Comment: 103.1 Performed By: #### L 500.2500, L100.0500 ####[facility] [address] [place], [address] RBC (Bld) [#/Vol] 3.66 10*6/uL Low 4.2-5.4 [facility] Comment on above: Order Comment: 103.1 Performed By: #### L 500.2500, L100.0500 ####[facility] [address] [place], [address] RDW SD 61.3 fl High 35.1-43.9 [facility] Comment on above: Order Comment: 103.1 Performed By: #### L 500.2500, L100.0500 ####[facility] [address] [place], [address] WBC (Bld) [#/Vol] 11.4 10*3/uL High 4.4-11.0 [facility] Comment on above: Order Comment: 103.1 Performed By: #### L 500.2500, L100.0500 ####[facility] [address] [place], [address] Thyroid Stim Hormone (TSH)on 03-26-2024 TSH 20.500 uIU/mL High 0.358-3.74 0 [facility] Comment on above: Order Comment: 103.1 Performed By: #### L 501.9520 ####[facility] [address] [place], [address] OP NOTEon 03-22-2024 OP NOTE Normal [facility] Basic Metabolic Profile (BMP )on 03-21-2024 BUN/CRE 6.5 RATIO Low 03-17 [facility] Comment on above: Order Comment: 103.1 Performed By: #### L 500.2500, L100.0500 ####[facility] [address] [place], [address] CA,Total 9.1 mg/dL Normal 8.5-10.1 [facility] Comment on above: Order Comment: 103.1 Performed By: #### L 500.2500, L100.0500 ####[facility] [address] [place], [address] Chloride [Moles/Vol] 100 mmol/L Normal 98-107 [facility] Comment on above: Order Comment: 103.1 Performed By: #### L 500.2500, L100.0500 ####[facility] [address] [place], [address] CO2 [Moles/Vol] 30.0 mmol/L Normal 21.0-32.0 [facility] Comment on above: Order Comment: 103.1 Performed By: #### L 500.2500, L100.0500 ####[facility] [address] [place], [address] Creatinine [Mass/Vol] 1.85 mg/dL High 0.55-1.02 [facility] Comment on above: Order Comment: 103.1 Result Comment: The validity of the calculated GFR GFRAA in patients over70 years has not been determined. Clinical correlation isessential. Performed By: #### L 500.2500, L100.0500 ####[facility] [address] [place], [address] EST GFR - AA 36 mL/min Low >60 [facility] Comment on above: Order Comment: 103.1 Result Comment: Afri can Nauruan GFR Calc Performed By: #### L 500.2500, L100.0500 ####[facility] [address] [place], [address] GAP 3 Low 5-15 [facility] Comment on above: Order Comment: 103.1 Performed By: #### L 500.2500, L100.0500 ####[facility] [address] [place], [address] GFR/1.73 sq M.predicted among non-blacks MDRD (S/P/Bld) [Vol rate/Area] 29 mL/min/{1.73_m2} Low >60 [facility] Comment on above: Order Comment: 103.1 Result Comment: Non- GFR Calc Performed By: #### L 500.2500, L100.0500 ####[facility] [address] [place], [address] Glucose [Mass/Vol] 75 mg/dL Normal 74-106 [facility] Comment on above: Order Comment: 103.1 Performed By: #### L 500.2500, L100.0500 ####[facility] [address] [place], [address] Potassium [Moles/Vol] 4.5 mmol/L Normal 3.5-5.1 [facility] Comment on above: Order Comment: 103.1 Performed By: #### L 500.2500, L100.0500 ####[facility] [address] [place], [address] Sodium [Moles/Vol] 133 mmol/L Low 136-145 [facility] Comment on above: Order Comment: 103.1 Performed By: #### L 500.2500, L100.0500 ####[facility] [address] [place], [address] Urea nitrogen [Mass/Vol] 12 mg/dL Normal 7-18 [facility] Comment on above: Order Comment: 103.1 Performed By: #### L 500.2500, L100.0500 ####[facility] [address] [place], [address] CBC-Complete Blood Cnt No Di ffon 03-21-2024 Erythrocyte distribution width (RBC) [Ratio] 21.2 % High 11.6-14.6 [facility] Comment on above: Order Comment: 103.1 Performed By: #### L 500.2500, L100.0500 ####[facility] [address] [place], [address] Hematocrit (Bld) [Volume fraction] 27.9 % Low 37-47 [facility] Comment on above: Order Comment: 103.1 Performed By: #### L 500.2500, L100.0500 ####[facility] [address] [place], [address] Hemoglobin (Bld) [Mass/Vol] 8.0 g/dL Low 12.0-15.0 [facility] Comment on above: Order Comment: 103.1 Performed By: #### L 500.2500, L100.0500 ####[facility] [address] [place], [address] MCH (RBC) [Entitic mass] 29.3 pg Normal 27.0-32.0 [facility] Comment on above: Order Comment: 103.1 Performed By: #### L 500.2500, L100.0500 ####[facility] [address] [place], [address] MCHC (RBC) [Mass/Vol] 28.7 g/dL Low 32-36 [facility] Comment on above: Order Comment: 103.1 Performed By: #### L 500.2500, L100.0500 ####[facility] [address] [place], [address] MCV (RBC) [Entitic vol] 102.2 fL High 81-99 [facility] Comment on above: Order Comment: 103.1 Performed By: #### L 500.2500, L100.0500 ####[facility] [address] [place], [address] Platelet mean volume (Bld) [Entitic vol] 9.9 fL Normal 6.2-12.0 [facility] Comment on above: Order Comment: 103.1 Performed By: #### L 500.2500, L100.0500 ####[facility] [address] [place], [address] Platelets (Bld) [#/Vol] 189 10*3/uL Normal 150-450 [facility] Comment on above: Order Comment: 103.1 Performed By: #### L 500.2500, L100.0500 ####[facility] [address] [place], [address] RBC (Bld) [#/Vol] 2.73 10*6/uL Low 4.2-5.4 [facility] Comment on above: Order Comment: 103.1 Performed By: #### L 500.2500, L100.0500 ####[facility] [address] [place], [address] RDW SD 77.0 fl High 35.1-43.9 [facility] Comment on above: Order Comment: 103.1 Performed By: #### L 500.2500, L100.0500 ####[facility] [address] [place], [address] WBC (Bld) [#/Vol] 5.7 10*3/uL Normal 4.4-11.0 [facility] Comment on above: Order Comment: 103.1 Performed By: #### L 500.2500, L100.0500 ####[facility] [address] [place], [address] Disch Summon 03-20-2024 Disch Summ Normal [facility] BASIC METABOLIC PANELon 02-27 Anion gap [Moles/Vol] 10 mmol/L Normal 10-20 [facility] Comment on above: Order Comment: [facility] has implemented the eGFR calculation approach that does not have a coefficient for race that conforms to the NKF-ASN Task Force Recommendations. Performed By: #### 4 6124 ####[facility] [address] [place], [place] [address] Glenn Gudino M.D. [id number] Calcium [Mass/Vol] 8.3 mg/dL Low 8.4-10.2 [facility] Comment on above: Order Comment: [facility] has implemented the eGFR calculation approach that does not have a coefficient for race that conforms to the NKF-ASN Task Force Recommendations. Performed By: #### 4 6124 ####[facility] [address] [place] [address] Glenn Gudino M.D. [id number] Chloride [Moles/Vol] 98 mmol/L Normal 98-108 [facility] Comment on above: Order Comment: [facility] has implemented the eGFR calculation approach that does not have a coefficient for race that conforms to the NKF-ASN Task Force Recommendations. Performed By: #### 4 6124 ####[facility] [address] [place] [address] Glenn Gudino M.D. [id number] Creatinine [Mass/Vol] 1.32 mg/dL High 0.60-1.10 [facility] Comment on above: Order Comment: [facility] has implemented the eGFR calculation approach that does not have a coefficient for race that conforms to the NKF-ASN Task Force Recommendations. Performed By: #### 4 6124 ####[facility] [address] [place] [address] Glenn Gudino M.D. [id number] EGFR 46 mL/min/1.73 m2 Low >=60 [facility] Comment on above: Order Comment: [facility] has implemented the eGFR calculation approach that does not have a coefficient for race that conforms to the NKF-ASN Task Force Recommendations. Result Comment: Joi mated GFR was calculated using the 2020 CKD-EPI creatinine equation. Performed By: #### 4 6124 ####[facility] [address] [place], [place] [address] Glenn Gudino M.D. [id number] Glucose [Mass/Vol] 76 mg/dL Normal 65-99 [facility] Comment on above: Order Comment: [facility] has implemented the eGFR calculation approach that does not have a coefficient for race that conforms to the NKF-ASN Task Force Recommendations. Performed By: #### 4 6124 ####[facility] [address] [place] [address] Glenn Gudino M.D. [id number] HCO3 (Bld) [Moles/Vol] 30 mmol/L Normal 21-32 [facility] Comment on above: Order Comment: [facility] has implemented the eGFR calculation approach that does not have a coefficient for race that conforms to the NKF-ASN Task Force Recommendations. Performed By: #### 4 6129 ####[facility] [address] [place], [place] [id number] Glenn Gudino M.D. [id number] Potassium [Moles/Vol] 4.3 mmol/L Normal 3.5-5.1 [facility] Comment on above: Order Comment: [facility] has implemented the eGFR calculation approach that does not have a coefficient for race that conforms to the NKF-ASN Task Force Recommendations. Result Comment: Slcezar htly Hemolyzed Performed By: #### 4 [id number] ####[facility] [address] [place] [address] 75034 Glenn Gudino M.D. [id number] Sodium [Moles/Vol] 134 mmol/L Low 135-145 [facility] Comment on above: Order Comment: [facility] has implemented the eGFR calculation approach that does not have a coefficient for race that conforms to the NKF-ASN Task Force Recommendations. Performed By: #### 4 6124 ####[facility] [address] [place], [place] [address] Glenn Gudino M.D. [id number] Urea nitrogen [Mass/Vol] 12 mg/dL Normal 8-25 [facility] Comment on above: Order Comment: [facility] has implemented the eGFR calculation approach that does not have a coefficient for race that conforms to the NKF-ASN Task Force Recommendations. Performed By: #### 4 6124 ####[facility] [address] [place], [place] [address] Glenn Gudino M.D. [id number] Urea nitrogen/Creatinine [Mass ratio] 9.1 mg/mg Low 10.0-20.0 [facility] Comment on above: Order Comment: [facility] has implemented the eGFR calculation approach that does not have a coefficient for race that conforms to the NKF-ASN Task Force Recommendations. Performed By: #### 4 6124 ####[facility] [address] [place] [address] 64674 Glenn Gudino M.D. [id number] CBCon 03-19-2024 AUTO NRBC 0.0 % Normal [facility] Comment on above: Performed By: #### 4 [id number] ####[facility] [address] [place] [address] 92455 Glenn Gudino M.D. [id number] AUTO NRBC ABS COUNT 0.00 K/mcL Normal 0.00-0.00 [facility] Comment on above: Performed By: #### 4 [id number] ####[facility] [address] [place] [address] Glenn Gudino M.D. [id number] Erythrocyte distribution width (RBC) [Ratio] 21.2 % High 11.6-14.8 [facility] Comment on above: Performed By: #### 4 [id number] ####[facility] [address] [place] [address] Glenn Gudino M.D. [id number] Hematocrit (Bld) [Volume fraction] 27.5 % Low 36.0-46.0 [facility] Comment on above: Performed By: #### 4 [id number] ####[facility] [address] [place] [address] Glenn Gudino M.D. [id number] Hemoglobin (Bld) [Mass/Vol] 8.3 g/dL Low 12.0-16.0 [facility] Comment on above: Performed By: #### 4 [id number] ####[facility] [address] [place] [address] Glenn Gudino M.D. [id number] MCH (RBC) [Entitic mass] 29.9 pg Normal 26.0-34.0 [facility] Comment on above: Performed By: #### 4 [id number] ####[facility] [address] [place] [address] Glenn Gudino M.D. [id number] MCV (RBC) [Entitic vol] 98.9 fL Normal 80.0-100.0 [facility] Comment on above: Performed By: #### 4 [id number] ####[facility] [address] [place] [address] Glenn Gudino M.D. [id number] MEAN CORPUSCULAR HEMOGLOBIN CONC 30.2 g/dL Low 31.0-37.0 [facility] Comment on above: Performed By: #### 4 [id number] ####[facility] [address] [place] [address] 39218 Glenn Gudino M.D. [id number] Platelet mean volume (Bld) [Entitic vol] 9.8 fL Normal 9.4-12.4 [facility] Comment on above: Performed By: #### 4 [id number] ####[facility] [address] [place] [address] 39284 Glenn Gudnio M.D. [id number] Platelets (Bld) [#/Vol] 156 10*3/uL Normal 150-400 [facility] Comment on above: Performed By: #### 4 [id number] ####[facility] [address] [place] [address] 91291 Glenn Gudino M.D. [id number] RBC (Bld) [#/Vol] 2.78 10*6/uL Low 4.00-5.20 [facility] Comment on above: Performed By: #### 4 [id number] ####[facility] [address] [place] [address] 94701 Glenn Gudino M.D. [id number] WBC (Bld) [#/Vol] 6.81 10*3/uL Normal 4.50-11.00 [facility] Comment on above: Performed By: #### 4 [id number] ####[facility] [address] [place] [address] 09469 Glenn Gudino M.D. [id number] BASIC METABOLIC PANELon 10-2 Anion gap [Moles/Vol] 11 mmol/L Normal 10-20 [facility] Comment on above: Order Comment: [facility] has implemented the eGFR calculation approach that does not have a coefficient for race that conforms to the NKF-ASN Task Force Recommendations. Performed By: #### 4 6124 ####[facility] [address] [place] [address] 04705 Glenn Gudino M.D. [id number] Calcium [Mass/Vol] 8.6 mg/dL Normal 8.4-10.2 [facility] Comment on above: Order Comment: [facility] has implemented the eGFR calculation approach that does not have a coefficient for race that conforms to the NKF-ASN Task Force Recommendations. Performed By: #### 4 6124 ####[facility] [address] [place] [address] 17706 Glenn Gudino M.D. [id number] Chloride [Moles/Vol] 97 mmol/L Low 98-108 [facility] Comment on above: Order Comment: [facility] has implemented the eGFR calculation approach that does not have a coefficient for race that conforms to the NKF-ASN Task Force Recommendations. Performed By: #### 4 6124 ####[facility] [address] [place] [address] 93894 Glenn Gudino M.D. [id number] Creatinine [Mass/Vol] 2.55 mg/dL High 0.60-1.10 [facility] Comment on above: Order Comment: [facility] has implemented the eGFR calculation approach that does not have a coefficient for race that conforms to the NKF-ASN Task Force Recommendations. Performed By: #### 4 6124 ####[facility] [address] [place] [address] 15307 Glenn Gudino M.D. [id number] EGFR 21 mL/min/1.73 m2 Low >=60 [facility] Comment on above: Order Comment: [facility] has implemented the eGFR calculation approach that does not have a coefficient for race that conforms to the NKF-ASN Task Force Recommendations. Result Comment: Joi mated GFR was calculated using the 2020 CKD-EPI creatinine equation. Performed By: #### 4 6124 ####[facility] [address] [place] [address] 97898 Glenn Gudino M.D. [id number] Glucose [Mass/Vol] 84 mg/dL Normal 65-99 [facility] Comment on above: Order Comment: [facility] has implemented the eGFR calculation approach that does not have a coefficient for race that conforms to the NKF-ASN Task Force Recommendations. Performed By: #### 4 6124 ####[facility] [address] [place] [address] 60523 Glenn Gudino M.D. [id number] HCO3 (Bld) [Moles/Vol] 29 mmol/L Normal 21-32 [facility] Comment on above: Order Comment: [facility] has implemented the eGFR calculation approach that does not have a coefficient for race that conforms to the NKF-ASN Task Force Recommendations. Performed By: #### 4 6124 ####[facility] [address] [place] [address] 04950 Glenn Gudino M.D. [id number] Potassium [Moles/Vol] 4.2 mmol/L Normal 3.5-5.1 [facility] Comment on above: Order Comment: [facility] has implemented the eGFR calculation approach that does not have a coefficient for race that conforms to the NKF-ASN Task Force Recommendations. Performed By: #### 4 6124 ####[facility] [address] [place], [place] [address] Glenn Gudino M.D. [id number] Sodium [Moles/Vol] 133 mmol/L Low 135-145 [facility] Comment on above: Order Comment: [facility] has implemented the eGFR calculation approach that does not have a coefficient for race that conforms to the NKF-ASN Task Force Recommendations. Performed By: #### 4 6124 ####[facility] [address] [place], [place] [address] Glenn Gudino M.D. [id number] Urea nitrogen [Mass/Vol] 22 mg/dL Normal 8-25 [facility] Comment on above: Order Comment: [facility] has implemented the eGFR calculation approach that does not have a coefficient for race that conforms to the NKF-ASN Task Force Recommendations. Performed By: #### 4 6124 ####[facility] [address] [place], [place] [address] Glenn Gudino M.D. [id number] Urea nitrogen/Creatinine [Mass ratio] 8.6 mg/mg Low 10.0-20.0 [facility] Comment on above: Order Comment: [facility] has implemented the eGFR calculation approach that does not have a coefficient for race that conforms to the NKF-ASN Task Force Recommendations. Performed By: #### 4 6124 ####[facility] [address] [place], [place] [address] Glenn Gudino M.D. [id number] CBCon 03-18-2024 AUTO NRBC 0.0 % Normal [facility] Comment on above: Performed By: #### 4 [id number] ####[facility] [address] [place], [place] [address]arma Gudino M.D. [id number] AUTO NRBC ABS COUNT 0.00 K/mcL Normal 0.00-0.00 [facility] Comment on above: Performed By: #### 4 [id number] ####[facility] [address] [place], [place] [address] Glenn Gudino M.D. [id number] Erythrocyte distribution width (RBC) [Ratio] 20.8 % High 11.6-14.8 [facility] Comment on above: Performed By: #### 4 [id number] ####[facility] [address] [place], [place] [address] Glenn Gudino M.D. [id number] Hematocrit (Bld) [Volume fraction] 26.6 % Low 36.0-46.0 [facility] Comment on above: Performed By: #### 4 [id number] ####[facility] [address] [place], [place] [address] Glenn Gudino M.D. [id number] Hemoglobin (Bld) [Mass/Vol] 8.1 g/dL Low 12.0-16.0 [facility] Comment on above: Performed By: #### 4 [id number] ####[facility] [address] [place] [address] Glenn Gudino M.D. [id number] MCH (RBC) [Entitic mass] 29.9 pg Normal 26.0-34.0 [facility] Comment on above: Performed By: #### 4 [id number] ####[facility] [address] [place] [address] Glenn Gudino M.D. [id number] MCV (RBC) [Entitic vol] 98.2 fL Normal 80.0-100.0 [facility] Comment on above: Performed By: #### 4 [id number] ####[facility] [address] [place], [place] [address] Glenn Gudino M.D. [id number] MEAN CORPUSCULAR HEMOGLOBIN CONC 30.5 g/dL Low 31.0-37.0 [facility] Comment on above: Performed By: #### 4 [id number] ####[facility] [address] [place], [place] [address] Glenn Gudino M.D. [id number] Platelet mean volume (Bld) [Entitic vol] 9.6 fL Normal 9.4-12.4 [facility] Comment on above: Performed By: #### 4 [id number] ####[facility] [address] [place], [place] [address] Glenn Gudino M.D. [id number] Platelets (Bld) [#/Vol] 167 10*3/uL Normal 150-400 [facility] Comment on above: Performed By: #### 4 [id number] ####[facility] [address] [place] [address] 19979 Glenn Gudino M.D. [id number] RBC (Bld) [#/Vol] 2.71 10*6/uL Low 4.00-5.20 [facility] Comment on above: Performed By: #### 4 [id number] ####[facility] [address] [place] [address] 80115 Glenn Gudino M.D. [id number] WBC (Bld) [#/Vol] 6.74 10*3/uL Normal 4.50-11.00 [facility] Comment on above: Performed By: #### 4 [id number] ####[facility] [address] [place] [address] 05395 Glenn Gudino M.D. [id number] BASIC METABOLIC PANELon 10-2 0-2023 Anion gap [Moles/Vol] 12 mmol/L Normal 10-20 [facility] Comment on above: Order Comment: [facility] has implemented the eGFR calculation approach that does not have a coefficient for race that conforms to the NKF-ASN Task Force Recommendations. Performed By: #### 4 6124 ####[facility] [address] [place] [address] 26631 Glenn Gudino M.D. [id number] Calcium [Mass/Vol] 8.3 mg/dL Low 8.4-10.2 [facility] Comment on above: Order Comment: [facility] has implemented the eGFR calculation approach that does not have a coefficient for race that conforms to the NKF-ASN Task Force Recommendations. Performed By: #### 4 6124 ####[facility] [address] [place] [address] 79228 Glenn Gudino M.D. [id number] Chloride [Moles/Vol] 95 mmol/L Low 98-108 [facility] Comment on above: Order Comment: [facility] has implemented the eGFR calculation approach that does not have a coefficient for race that conforms to the NKF-ASN Task Force Recommendations. Performed By: #### 4 6124 ####[facility] [address] [place], [place] [address] Glenn Gudino M.D. [id number] Creatinine [Mass/Vol] 1.69 mg/dL High 0.60-1.10 [facility] Comment on above: Order Comment: [facility] has implemented the eGFR calculation approach that does not have a coefficient for race that conforms to the NKF-ASN Task Force Recommendations. Performed By: #### 4 6124 ####[facility] [address] [place], [place] [address] Glenn Gudino M.D. [id number] EGFR 34 mL/min/1.73 m2 Low >=60 [facility] Comment on above: Order Comment: [facility] has implemented the eGFR calculation approach that does not have a coefficient for race that conforms to the NKF-ASN Task Force Recommendations. Result Comment: Joi mated GFR was calculated using the 2020 CKD-EPI creatinine equation. Performed By: #### 4 6124 ####[facility] [address] [place] [address] 05133 Glenn Gudino M.D. [id number] Glucose [Mass/Vol] 112 mg/dL High 65-99 [facility] Comment on above: Order Comment: [facility] has implemented the eGFR calculation approach that does not have a coefficient for race that conforms to the NKF-ASN Task Force Recommendations. Performed By: #### 4 6124 ####[facility] [address] [place] [address] 36554 Glenn Gudino M.D. [id number] HCO3 (Bld) [Moles/Vol] 28 mmol/L Normal 21-32 [facility] Comment on above: Order Comment: [facility] has implemented the eGFR calculation approach that does not have a coefficient for race that conforms to the NKF-ASN Task Force Recommendations. Performed By: #### 4 6124 ####[facility] [address] [place] [address] 20695 Glenn Gudino M.D. [id number] Potassium [Moles/Vol] 3.9 mmol/L Normal 3.5-5.1 [facility] Comment on above: Order Comment: [facility] has implemented the eGFR calculation approach that does not have a coefficient for race that conforms to the NKF-ASN Task Force Recommendations. Result Comment: Slig htly Hemolyzed Performed By: #### 4 6124 ####[facility] [address] [place] [address] 85107 Glenn Gudino M.D. [id number] Sodium [Moles/Vol] 131 mmol/L Low 135-145 [facility] Comment on above: Order Comment: [facility] has implemented the eGFR calculation approach that does not have a coefficient for race that conforms to the NKF-ASN Task Force Recommendations. Performed By: #### 4 6124 ####[facility] [address] [place] [address] 59916 Glenn Gudino M.D. [id number] Urea nitrogen [Mass/Vol] 16 mg/dL Normal 8-25 [facility] Comment on above: Order Comment: [facility] has implemented the eGFR calculation approach that does not have a coefficient for race that conforms to the NKF-ASN Task Force Recommendations. Performed By: #### 4 6124 ####[facility] [address] [place] [address] 74807 Glenn Gudino M.D. [id number] Urea nitrogen/Creatinine [Mass ratio] 9.5 mg/mg Low 10.0-20.0 [facility] Comment on above: Order Comment: [facility] has implemented the eGFR calculation approach that does not have a coefficient for race that conforms to the NKF-ASN Task Force Recommendations. Performed By: #### 4 6124 ####[facility] [address] [place], [place] [address] Glenn Gudino M.D. [id number] CBCon 03-17-2024 AUTO NRBC 0.0 % Normal [facility] Comment on above: Performed By: #### 4 [id number] ####[facility] [address] [place] [address] Glenn Gudino M.D. [id number] AUTO NRBC ABS COUNT 0.00 K/mcL Normal 0.00-0.00 [facility] Comment on above: Performed By: #### 4 [id number] ####[facility] [address] [place] [address] Glenn Gudino M.D. [id number] Erythrocyte distribution width (RBC) [Ratio] 20.9 % High 11.6-14.8 [facility] Comment on above: Performed By: #### 4 [id number] ####[facility] [address] [place], [place] [address] Glenn Gudino M.D. [id number] Hematocrit (Bld) [Volume fraction] 24.7 % Low 36.0-46.0 [facility] Comment on above: Performed By: #### 4 [id number] ####[facility] [address] [place], [place] [address] Glenn Gudino M.D. [id number] Hemoglobin (Bld) [Mass/Vol] 7.5 g/dL Low 12.0-16.0 [facility] Comment on above: Performed By: #### 4 [id number] ####[facility] [address] [place], [place] [address] Glenn Gudino M.D. [id number] MCH (RBC) [Entitic mass] 29.1 pg Normal 26.0-34.0 [facility] Comment on above: Performed By: #### 4 [id number] ####[facility] [address] [place] [address] 14087 Glenn Gudino M.D. [id number] MCV (RBC) [Entitic vol] 95.7 fL Normal 80.0-100.0 [facility] Comment on above: Performed By: #### 4 [id number] ####[facility] [address] [place], [place] [address] Glenn Gudino M.D. [id number] MEAN CORPUSCULAR HEMOGLOBIN CONC 30.4 g/dL Low 31.0-37.0 [facility] Comment on above: Performed By: #### 4 [id number] ####[facility] [address] [place], [place] [address] Glenn Gudino M.D. [id number] Platelet mean volume (Bld) [Entitic vol] 9.4 fL Normal 9.4-12.4 [facility] Comment on above: Performed By: #### 4 [id number] ####[facility] [address] [place], [place] [address] Glenn Gudino M.D. [id number] Platelets (Bld) [#/Vol] 164 10*3/uL Normal 150-400 [facility] Comment on above: Performed By: #### 4 [id number] ####[facility] [address] [place], [place] [address] Glenn Gudino M.D. [id number] RBC (Bld) [#/Vol] 2.58 10*6/uL Low 4.00-5.20 [facility] Comment on above: Performed By: #### 4 [id number] ####[facility] [address] [place] [address] 31369 Glenn Gudino M.D. [id number] WBC (Bld) [#/Vol] 6.69 10*3/uL Normal 4.50-11.00 [facility] Comment on above: Performed By: #### 4 [id number] ####[facility] [address] [place] [address] 96454 Glenn Gudino M.D. [id number] BASIC METABOLIC PANELon 02-26 Anion gap [Moles/Vol] 15 mmol/L Normal 10-20 [facility] Comment on above: Order Comment: [facility] has implemented the eGFR calculation approach that does not have a coefficient for race that conforms to the NKF-ASN Task Force Recommendations. Performed By: #### 4 6124 ####[facility] [address] [place] [address] 57059 Glenn Gudino M.D. [id number] Calcium [Mass/Vol] 8.5 mg/dL Normal 8.4-10.2 [facility] Comment on above: Order Comment: [facility] has implemented the eGFR calculation approach that does not have a coefficient for race that conforms to the NKF-ASN Task Force Recommendations. Performed By: #### 4 6124 ####[facility] [address] [place] [address] 69088 Glenn Gudino M.D. [id number] Chloride [Moles/Vol] 97 mmol/L Low 98-108 [facility] Comment on above: Order Comment: [facility] has implemented the eGFR calculation approach that does not have a coefficient for race that conforms to the NKF-ASN Task Force Recommendations. Performed By: #### 4 6124 ####[facility] [address] [place] [address] 05695 Glenn Gudino M.D. [id number] Creatinine [Mass/Vol] 2.74 mg/dL High 0.60-1.10 [facility] Comment on above: Order Comment: [facility] has implemented the eGFR calculation approach that does not have a coefficient for race that conforms to the NKF-ASN Task Force Recommendations. Performed By: #### 4 6124 ####[facility] [address] [place] [address] 93104 Glenn Gudino M.D. [id number] EGFR 19 mL/min/1.73 m2 Low >=60 [facility] Comment on above: Order Comment: [facility] has implemented the eGFR calculation approach that does not have a coefficient for race that conforms to the NKF-ASN Task Force Recommendations. Result Comment: Joi mated GFR was calculated using the 2020 CKD-EPI creatinine equation. Performed By: #### 4 [id number] ####[facility] [address] [place] [address] 97724 Glenn Gudino M.D. [id number] Glucose [Mass/Vol] 84 mg/dL Normal 65-99 [facility] Comment on above: Order Comment: [facility] has implemented the eGFR calculation approach that does not have a coefficient for race that conforms to the NKF-ASN Task Force Recommendations. Performed By: #### 4 6124 ####[facility] [address] [place], [place] [address] Glenn Gudino M.D. [id number] HCO3 (Bld) [Moles/Vol] 27 mmol/L Normal 21-32 [facility] Comment on above: Order Comment: [facility] has implemented the eGFR calculation approach that does not have a coefficient for race that conforms to the NKF-ASN Task Force Recommendations. Performed By: #### 4 6124 ####[facility] [address] [place] [address] 02178 Glenn Gudino M.D. [id number] Potassium [Moles/Vol] 4.5 mmol/L Normal 3.5-5.1 [facility] Comment on above: Order Comment: [facility] has implemented the eGFR calculation approach that does not have a coefficient for race that conforms to the NKF-ASN Task Force Recommendations. Result Comment: Slig htly Hemolyzed Performed By: #### 4 6124 ####[facility] [address] [place] [address] 68495 Glenn Gudino M.D. [id number] Sodium [Moles/Vol] 134 mmol/L Low 135-145 [facility] Comment on above: Order Comment: [facility] has implemented the eGFR calculation approach that does not have a coefficient for race that conforms to the NKF-ASN Task Force Recommendations. Performed By: #### 4 [id number] ####[facility] [address] [place] [address] 83321 Glenn Gudino M.D. [id number] Urea nitrogen [Mass/Vol] 32 mg/dL High 8- [facility] Comment on above: Order Comment: [facility] has implemented the eGFR calculation approach that does not have a coefficient for race that conforms to the NKF-ASN Task Force Recommendations. Performed By: #### 4 6124 ####[facility] [address] [place] [address] 42169 Glenn Gudino M.D. [id number] Urea nitrogen/Creatinine [Mass ratio] 11.7 mg/mg Normal 10.0-20.0 [facility] Comment on above: Order Comment: [facility] has implemented the eGFR calculation approach that does not have a coefficient for race that conforms to the NKF-ASN Task Force Recommendations. Performed By: #### 4 [id number] ####[facility] [address] [place] [address] 68961 Glenn Gudino M.D. [id number] PHOSPHORUSon 03-16-2024 Phosphate [Mass/Vol] 3.9 mg/dL Normal 2.8-4.1 [facility] Comment on above: Performed By: #### 4 6299 ####[facility] [address] [place] [address] 44972 Glenn Gudino M.D. [id number] BASIC METABOLIC PANELon - Anion gap [Moles/Vol] 14 mmol/L Normal - [facility] Comment on above: Order Comment: [facility] has implemented the eGFR calculation approach that does not have a coefficient for race that conforms to the NKF-ASN Task Force Recommendations. Performed By: #### 4 6124 ####[facility] [address] [place] [address] 66877 Glenn Gudino M.D. [id number] Calcium [Mass/Vol] 8.3 mg/dL Low 8.4-10.2 [facility] Comment on above: Order Comment: [facility] has implemented the eGFR calculation approach that does not have a coefficient for race that conforms to the NKF-ASN Task Force Recommendations. Performed By: #### 4 6124 ####[facility] [address] [place] [address] 30834 Glenn Gudino M.D. [id number] Chloride [Moles/Vol] 96 mmol/L Low 98-108 [facility] Comment on above: Order Comment: [facility] has implemented the eGFR calculation approach that does not have a coefficient for race that conforms to the NKF-ASN Task Force Recommendations. Performed By: #### 4 6124 ####[facility] [address] [place] [address] 96871 Gelnn Gudino M.D. [id number] Creatinine [Mass/Vol] 2.29 mg/dL High 0.60-1.10 [facility] Comment on above: Order Comment: [facility] has implemented the eGFR calculation approach that does not have a coefficient for race that conforms to the NKF-ASN Task Force Recommendations. Performed By: #### 4 6124 ####[facility] [address] [place] [address] 49095 Glenn Gudino M.D. [id number] EGFR 24 mL/min/1.73 m2 Low >=60 [facility] Comment on above: Order Comment: [facility] has implemented the eGFR calculation approach that does not have a coefficient for race that conforms to the NKF-ASN Task Force Recommendations. Result Comment: Joi mated GFR was calculated using the 2020 CKD-EPI creatinine equation. Performed By: #### 4 6124 ####[facility] [address] [place] [address] 17939 Glenn Guidno M.D. [id number] Glucose [Mass/Vol] 74 mg/dL Normal 65-99 [facility] Comment on above: Order Comment: [facility] has implemented the eGFR calculation approach that does not have a coefficient for race that conforms to the NKF-ASN Task Force Recommendations. Performed By: #### 4 6124 ####[facility] [address] [place] [address] 86712 Glenn Gudino M.D. [id number] HCO3 (Bld) [Moles/Vol] 27 mmol/L Normal 21-32 [facility] Comment on above: Order Comment: [facility] has implemented the eGFR calculation approach that does not have a coefficient for race that conforms to the NKF-ASN Task Force Recommendations. Performed By: #### 4 6124 ####[facility] [address] [place] [address] 16619 Glenn Gudino M.D. [id number] Potassium [Moles/Vol] 4.4 mmol/L Normal 3.5-5.1 [facility] Comment on above: Order Comment: [facility] has implemented the eGFR calculation approach that does not have a coefficient for race that conforms to the NKF-ASN Task Force Recommendations. Result Comment: Slig htly Hemolyzed Performed By: #### 4 6124 ####[facility] [address] [place] [address] 85688 Glenn Gudino M.D. [id number] Sodium [Moles/Vol] 133 mmol/L Low 135-145 [facility] Comment on above: Order Comment: [facility] has implemented the eGFR calculation approach that does not have a coefficient for race that conforms to the NKF-ASN Task Force Recommendations. Performed By: #### 4 6118 ####[facility] [address] [place], [place] [address] Glenn Gudino M.D. [id number] Urea nitrogen [Mass/Vol] 23 mg/dL Normal 8-25 [facility] Comment on above: Order Comment: [facility] has implemented the eGFR calculation approach that does not have a coefficient for race that conforms to the NKF-ASN Task Force Recommendations. Performed By: #### 4 6124 ####[facility] [address] [place] [address] Glenn Gudino M.D. [id number] Urea nitrogen/Creatinine [Mass ratio] 10.0 mg/mg Normal 10.0-20.0 [facility] Comment on above: Order Comment: [facility] has implemented the eGFR calculation approach that does not have a coefficient for race that conforms to the NKF-ASN Task Force Recommendations. Performed By: #### 4 6124 ####[facility] [address] [place], [place] [address] Glenn Gudino M.D. [id number] CBCon 03-15-2024 AUTO NRBC 0.0 % Normal [facility] Comment on above: Performed By: #### 4 [id number] ####[facility] [address] [place], [place] [address] Glenn Gudino M.D. [id number] AUTO NRBC ABS COUNT 0.00 K/mcL Normal 0.00-0.00 [facility] Comment on above: Performed By: #### 4 [id number] ####[facility] [address] [place] [address] 60790 Glenn Gudino M.D. [id number] Erythrocyte distribution width (RBC) [Ratio] 20.6 % High 11.6-14.8 [facility] Comment on above: Performed By: #### 4 [id number] ####[facility] [address] [place], [place] [address] Glenn Gudino M.D. [id number] Hematocrit (Bld) [Volume fraction] 27.4 % Low 36.0-46.0 [facility] Comment on above: Performed By: #### 4 [id number] ####[facility] [address] [place] [address] Glenn Gudino M.D. [id number] Hemoglobin (Bld) [Mass/Vol] 8.7 g/dL Low 12.0-16.0 [facility] Comment on above: Performed By: #### 4 [id number] ####[facility] [address] [place] [address] Glenn Gudino M.D. [id number] MCH (RBC) [Entitic mass] 29.3 pg Normal 26.0-34.0 [facility] Comment on above: Performed By: #### 4 [id number] ####[facility] [address] [place] [address] Glenn Gudino M.D. [id number] MCV (RBC) [Entitic vol] 92.3 fL Normal 80.0-100.0 [facility] Comment on above: Result Comment: Resu lts checked Performed By: #### 4 [id number] ####[facility] [address] [place], [place] [address] Glenn Gudino M.D. [id number] MEAN CORPUSCULAR HEMOGLOBIN CONC 31.8 g/dL Normal 31.0-37.0 [facility] Comment on above: Performed By: #### 4 [id number] ####[facility] [address] [place], [place] [address] Glenn Gudino M.D. [id number] Platelet mean volume (Bld) [Entitic vol] 10.0 fL Normal 9.4-12.4 [facility] Comment on above: Performed By: #### 4 5275 ####[facility] [address] [place] [address] Glenn Gudino M.D. [id number] Platelets (Bld) [#/Vol] 196 10*3/uL Normal 150-400 [facility] Comment on above: Performed By: #### 4 [id number] ####[facility] [address] [place] [address] 54397 Glenn Gudino M.D. [id number] RBC (Bld) [#/Vol] 2.97 10*6/uL Low 4.00-5.20 [facility] Comment on above: Performed By: #### 4 [id number] ####[facility] [address] [place] [address] 03397 Glenn Gudino M.D. [id number] WBC (Bld) [#/Vol] 7.75 10*3/uL Normal 4.50-11.00 [facility] Comment on above: Performed By: #### 4 [id number] ####[facility] [address] [place], [place] [address] Glenn Gudino M.D. [id number] MAGNESIUM LEVELon 03-15-2024 Magnesium [Mass/Vol] 1.7 mg/dL Normal 1.6-2.4 [facility] Comment on above: Performed By: #### 4 6109 ####[facility] [address] [place] [address] 26690 Glenn Gudino M.D. [id number] XR CHEST PA/APon 03-15-2024 XR CHEST PA/AP Normal [facility] Comment on above: Order Comment: Injur y/Trauma or Illness?:Illness/OtherHow long have you had these symptoms (acute/chronic)?:AcuteReason for exam?:follow upHistory of cancer?:uSurgeries, chemotherapy, or radiation?:uType of Exam?:Subsequent/Follow-upAdditional signs and symptoms?:. BASIC METABOLIC PANELon 02-26 Anion gap [Moles/Vol] 14 mmol/L Normal - [facility] Comment on above: Order Comment: [facility] has implemented the eGFR calculation approach that does not have a coefficient for race that conforms to the NKF-ASN Task Force Recommendations. Performed By: #### 4 6124 ####[facility] [address] [place] [address] 56289 Glenn Gudino M.D. [id number] Calcium [Mass/Vol] 8.4 mg/dL Normal 8.4-10.2 [facility] Comment on above: Order Comment: [facility] has implemented the eGFR calculation approach that does not have a coefficient for race that conforms to the NKF-ASN Task Force Recommendations. Performed By: #### 4 6124 ####[facility] [address] [place] [address] 76582 Glenn Gudino M.D. [id number] Chloride [Moles/Vol] 99 mmol/L Normal 98-108 [facility] Comment on above: Order Comment: [facility] has implemented the eGFR calculation approach that does not have a coefficient for race that conforms to the NKF-ASN Task Force Recommendations. Performed By: #### 4 6124 ####[facility] [address] [place] [address] 00937 Glenn Gudino M.D. [id number] Creatinine [Mass/Vol] 2.68 mg/dL High 0.60-1.10 [facility] Comment on above: Order Comment: [facility] has implemented the eGFR calculation approach that does not have a coefficient for race that conforms to the NKF-ASN Task Force Recommendations. Performed By: #### 4 6124 ####[facility] [address] [place] [address] 37386 Glenn Gudino M.D. [id number] EGFR 20 mL/min/1.73 m2 Low >=60 [facility] Comment on above: Order Comment: [facility] has implemented the eGFR calculation approach that does not have a coefficient for race that conforms to the NKF-ASN Task Force Recommendations. Result Comment: Joi mated GFR was calculated using the 2020 CKD-EPI creatinine equation. Performed By: #### 4 6124 ####[facility] [address] [place] [address] 45002 Glenn Gudino M.D. [id number] Glucose [Mass/Vol] 68 mg/dL Normal 65-99 [facility] Comment on above: Order Comment: [facility] has implemented the eGFR calculation approach that does not have a coefficient for race that conforms to the NKF-ASN Task Force Recommendations. Performed By: #### 4 6124 ####[facility] [address] [place] [address] 17700 Glenn Gudino M.D. [id number] HCO3 (Bld) [Moles/Vol] 26 mmol/L Normal 21-32 [facility] Comment on above: Order Comment: [facility] has implemented the eGFR calculation approach that does not have a coefficient for race that conforms to the NKF-ASN Task Force Recommendations. Performed By: #### 4 6124 ####[facility] [address] [place] [address] 03049 Glenn Gudino M.D. [id number] Potassium [Moles/Vol] 4.9 mmol/L Normal 3.5-5.1 [facility] Comment on above: Order Comment: [facility] has implemented the eGFR calculation approach that does not have a coefficient for race that conforms to the NKF-ASN Task Force Recommendations. Result Comment: Slig htly Hemolyzed Performed By: #### 4 6124 ####[facility] [address] [place] [address] 52165 Glenn Gudino M.D. [id number] Sodium [Moles/Vol] 134 mmol/L Low 135-145 [facility] Comment on above: Order Comment: [facility] has implemented the eGFR calculation approach that does not have a coefficient for race that conforms to the NKF-ASN Task Force Recommendations. Performed By: #### 4 6172 ####[facility] [address] [place] [address] 95683 Glenn Gudino M.D. [id number] Urea nitrogen [Mass/Vol] 23 mg/dL Normal 8-25 [facility] Comment on above: Order Comment: [facility] has implemented the eGFR calculation approach that does not have a coefficient for race that conforms to the NKF-ASN Task Force Recommendations. Performed By: #### 4 6124 ####[facility] [address] [place], [place] [address] Glenn Gudino M.D. [id number] Urea nitrogen/Creatinine [Mass ratio] 8.6 mg/mg Low 10.0-20.0 [facility] Comment on above: Order Comment: [facility] has implemented the eGFR calculation approach that does not have a coefficient for race that conforms to the NKF-ASN Task Force Recommendations. Performed By: #### 4 6124 ####[facility] [address] [place] [address] 85820 Glenn Gudino M.D. [id number] CBCon 03-14-2024 AUTO NRBC 0.0 % Normal [facility] Comment on above: Performed By: #### 4 [id number] ####[facility] [address] [place] [address] 82731 Glenn Gudino M.D. [id number] AUTO NRBC ABS COUNT 0.00 K/mcL Normal 0.00-0.00 [facility] Comment on above: Performed By: #### 4 [id number] ####[facility] [address] [place] [address] 23117 Glenn Gudino M.D. [id number] Erythrocyte distribution width (RBC) [Ratio] 19.3 % High 11.6-14.8 [facility] Comment on above: Performed By: #### 4 [id number] ####[facility] [address] [place], [place] [address] Glenn Gudino M.D. [id number] Hematocrit (Bld) [Volume fraction] 23.0 % Low 36.0-46.0 [facility] Comment on above: Performed By: #### 4 [id number] ####[facility] [address] [place], [place] [address] Glenn Gudino M.D. [id number] Hemoglobin (Bld) [Mass/Vol] 6.7 g/dL Off scale low 12.0-16.0 [facility] Comment on above: Result Comment: Resu lts called and read back verified by:.[id number] to [id number] @[id number] Performed By: #### 4 [id number] ####[facility] [address] [place] [address] Glenn Gudino M.D. [id number] MCH (RBC) [Entitic mass] 28.5 pg Normal 26.0-34.0 [facility] Comment on above: Performed By: #### 4 [id number] ####[facility] [address] [place] [address] Glenn Gudino M.D. [id number] MCV (RBC) [Entitic vol] 97.9 fL Normal 80.0-100.0 [facility] Comment on above: Performed By: #### 4 [id number] ####[facility] [address] [place], [place] [address] Glenn Gudino M.D. [id number] MEAN CORPUSCULAR HEMOGLOBIN CONC 29.1 g/dL Low 31.0-37.0 [facility] Comment on above: Performed By: #### 4 [id number] ####[facility] [address] [place], [place] [address] Glenn Gudino M.D. [id number] Platelet mean volume (Bld) [Entitic vol] 9.4 fL Normal 9.4-12.4 [facility] Comment on above: Performed By: #### 4 [id number] ####[facility] [address] [place] [address] 68659 Glenn Gudino M.D. [id number] Platelets (Bld) [#/Vol] 181 10*3/uL Normal 150-400 [facility] Comment on above: Performed By: #### 4 [id number] ####[facility] [address] [place] [address] 95626 Glenn Gudino M.D. [id number] RBC (Bld) [#/Vol] 2.35 10*6/uL Low 4.00-5.20 [facility] Comment on above: Performed By: #### 4 [id number] ####[facility] [address] [place], [place] [address] Glenn Gudino M.D. [id number] WBC (Bld) [#/Vol] 6.70 10*3/uL Normal 4.50-11.00 [facility] Comment on above: Performed By: #### 4 [id number] ####[facility] [address] [place] [address] 28450 Glenn Gudino M.D. [id number] HEMOGLOBIN AND HEMATOCRITon 03-14-2024 Hematocrit (Bld) [Volume fraction] 27.8 % Low 36.0-46.0 [facility] Comment on above: Performed By: #### 4 6909 ####[facility] [address] [place] [address] 77055 Glenn Gudino M.D. [id number] Hemoglobin (Bld) [Mass/Vol] 8.5 g/dL Low 12.0-16.0 [facility] Comment on above: Result Comment: Resu lts checked Performed By: #### 4 6909 ####[facility] [address] [place] [address] 76280 Glenn Gudino M.D. [id number] MAGNESIUM LEVELon 03-14-2024 Magnesium [Mass/Vol] 1.8 mg/dL Normal 1.6-2.4 [facility] Comment on above: Performed By: #### 4 6109 ####[facility] [address] [place], [place] [address] Glenn Gudino M.D. [id number] NT PRO BNPon 03-14-2024 Natriuretic peptide B (Bld) [Mass/Vol] 84366 pg/mL High 0-300 [facility] Comment on above: Order Comment: Pride Study Cut-offsRule In:< /= 50 Years >450 pg/mL51 Years - 75 Years >900 pg/mL76 Years - 99 Years >1800 pg/mLRule Out:All patients <300 pg/mL Performed By: #### 4 7395 ####[facility] [address] [place], [place] [address] Glenn Gudino M.D. [id number] WOUND AEROBIC AND ANAEROBIC CULTUREon 03-14-2024 WOUND AEROBIC AND ANAEROBIC CULTURE CULTURE No Anaerobic Growth after 5 days Heavy Growth Normal Enteric Cherelle GRAM STAIN RESULT Moderate WBC Few Gram Positive Cocci Few Gram Negative Bacilli Normal [facility] Comment on above: Performed By: #### 4 4287 ####[facility] [address] [place], [place] [address] Glenn Gudino M.D. [id number] WOUND AFB CULTUREon 03-14-20 WOUND AFB CULTURE AFB CULTURE No Growth of Acid Fast Bacilli after 8 Weeks AFB STAIN (2018) No Acid Fast Bacilli Seen Normal [facility] Comment on above: Performed By: #### 4 4286 ####[facility] [address] [place], [place] [address] Glenn Gudino M.D. [id number] WOUND FUNGUS CULTUREon 03-14 WOUND FUNGUS CULTURE FUNGUS CULTURE No Fungus Isolated At 4 Weeks FUNGAL SMEAR No Fungal or Yeast Elements Normal [facility] Comment on above: Performed By: #### 4 4288 ####[facility] [address] [place], [place] [address] Glenn Gudino M.D. [id number] BASIC METABOLIC PANELon 10- Anion gap [Moles/Vol] 11 mmol/L Normal 10-20 [facility] Comment on above: Order Comment: [facility] has implemented the eGFR calculation approach that does not have a coefficient for race that conforms to the NKF-ASN Task Force Recommendations. Performed By: #### 4 6124 ####[facility] [address] [place] [address] 07703 Glenn Gudino M.D. [id number] Calcium [Mass/Vol] 8.4 mg/dL Normal 8.4-10.2 [facility] Comment on above: Order Comment: [facility] has implemented the eGFR calculation approach that does not have a coefficient for race that conforms to the NKF-ASN Task Force Recommendations. Performed By: #### 4 6124 ####[facility] [address] [place] [address] 31344 Glenn Gudino M.D. [id number] Chloride [Moles/Vol] 98 mmol/L Normal 98-108 [facility] Comment on above: Order Comment: [facility] has implemented the eGFR calculation approach that does not have a coefficient for race that conforms to the NKF-ASN Task Force Recommendations. Performed By: #### 4 6124 ####[facility] [address] [place] [address] 26339 Glenn Gudino M.D. [id number] Creatinine [Mass/Vol] 2.18 mg/dL High 0.60-1.10 [facility] Comment on above: Order Comment: [facility] has implemented the eGFR calculation approach that does not have a coefficient for race that conforms to the NKF-ASN Task Force Recommendations. Performed By: #### 4 6124 ####[facility] [address] [place] [address] 51897 Glenn Gudino M.D. [id number] EGFR 25 mL/min/1.73 m2 Low >=60 [facility] Comment on above: Order Comment: [facility] has implemented the eGFR calculation approach that does not have a coefficient for race that conforms to the NKF-ASN Task Force Recommendations. Result Comment: Joi mated GFR was calculated using the 2020 CKD-EPI creatinine equation. Performed By: #### 4 6124 ####[facility] [address] [place], [place] [address] Glenn Gudino M.D. [id number] Glucose [Mass/Vol] 79 mg/dL Normal 65-99 [facility] Comment on above: Order Comment: [facility] has implemented the eGFR calculation approach that does not have a coefficient for race that conforms to the NKF-ASN Task Force Recommendations. Performed By: #### 4 6124 ####[facility] [address] [place] [address] 42327 Glenn Gudino M.D. [id number] HCO3 (Bld) [Moles/Vol] 29 mmol/L Normal 21-32 [facility] Comment on above: Order Comment: [facility] has implemented the eGFR calculation approach that does not have a coefficient for race that conforms to the NKF-ASN Task Force Recommendations. Performed By: #### 4 6124 ####[facility] [address] [place] [address] 15928 Glenn Gudino M.D. [id number] Potassium [Moles/Vol] 4.3 mmol/L Normal 3.5-5.1 [facility] Comment on above: Order Comment: [facility] has implemented the eGFR calculation approach that does not have a coefficient for race that conforms to the NKF-ASN Task Force Recommendations. Performed By: #### 4 6124 ####[facility] [address] [place] [id number] Glenn Gudino M.D. [id number] Sodium [Moles/Vol] 134 mmol/L Low 135-145 [facility] Comment on above: Order Comment: [facility] has implemented the eGFR calculation approach that does not have a coefficient for race that conforms to the NKF-ASN Task Force Recommendations. Performed By: #### 4 6124 ####[facility] [address] [place] [address] 84383 Glenn Gudino M.D. [id number] Urea nitrogen [Mass/Vol] 16 mg/dL Normal 8-25 [facility] Comment on above: Order Comment: [facility] has implemented the eGFR calculation approach that does not have a coefficient for race that conforms to the NKF-ASN Task Force Recommendations. Performed By: #### 4 6124 ####[facility] [address] [place], [place] [address] Glenn Gudino M.D. [id number] Urea nitrogen/Creatinine [Mass ratio] 7.3 mg/mg Low 10.0-20.0 [facility] Comment on above: Order Comment: [facility] has implemented the eGFR calculation approach that does not have a coefficient for race that conforms to the NKF-ASN Task Force Recommendations. Performed By: #### 4 6124 ####[facility] [address] [place], [place] [address] Glenn Gudino M.D. [id number] CALCIUM, IONIZEDon CALCIUM IONIZED 4.6 mg/dL Normal 4.5-5.3 [facility] Comment on above: Performed By: #### 4 5190 ####[facility] [address] [place] [address] 23034 Glenn Gudino M.D. [id number] CBCon 03-13-2024 AUTO NRBC 0.0 % Normal [facility] Comment on above: Performed By: #### 4 [id number] ####[facility] [address] [place] [address] 69465 Glenn Gudino M.D. [id number] AUTO NRBC ABS COUNT 0.00 K/mcL Normal 0.00-0.00 [facility] Comment on above: Performed By: #### 4 [id number] ####[facility] [address] [place], [place] [address] Glenn Gudino M.D. [id number] Erythrocyte distribution width (RBC) [Ratio] 18.7 % High 11.6-14.8 [facility] Comment on above: Performed By: #### 4 [id number] ####[facility] [address] [place] [address] Glenn Gudino M.D. [id number] Hematocrit (Bld) [Volume fraction] 22.1 % Low 36.0-46.0 [facility] Comment on above: Performed By: #### 4 [id number] ####[facility] [address] [place] [address] Glenn Gudino M.D. [id number] Hemoglobin (Bld) [Mass/Vol] 7.0 g/dL Low 12.0-16.0 [facility] Comment on above: Performed By: #### 4 [id number] ####[facility] [address] [place], [place] [address] Glenn Gudino M.D. [id number] MCH (RBC) [Entitic mass] 30.2 pg Normal 26.0-34.0 [facility] Comment on above: Performed By: #### 4 [id number] ####[facility] [address] [place], [place] [address] Glenn Gudino M.D. [id number] MCV (RBC) [Entitic vol] 95.3 fL Normal 80.0-100.0 [facility] Comment on above: Performed By: #### 4 [id number] ####[facility] [address] [place], [place] [address] Glenn Gudino M.D. [id number] MEAN CORPUSCULAR HEMOGLOBIN CONC 31.7 g/dL Normal 31.0-37.0 [facility] Comment on above: Performed By: #### 4 [id number] ####[facility] [address] [place] [address] 99675 Glenn Gudino M.D. [id number] Platelet mean volume (Bld) [Entitic vol] 9.7 fL Normal 9.4-12.4 [facility] Comment on above: Performed By: #### 4 [id number] ####[facility] [address] [place] [address] 24981 Glenn Gudino M.D. [id number] Platelets (Bld) [#/Vol] 187 10*3/uL Normal 150-400 [facility] Comment on above: Performed By: #### 4 [id number] ####[facility] [address] [place] [address] 31466 Glenn Gudino M.D. [id number] RBC (Bld) [#/Vol] 2.32 10*6/uL Low 4.00-5.20 [facility] Comment on above: Performed By: #### 4 [id number] ####[facility] [address] [place] [address] 32499 Glenn Gudino M.D. [id number] WBC (Bld) [#/Vol] 5.89 10*3/uL Normal 4.50-11.00 [facility] Comment on above: Performed By: #### 4 [id number] ####[facility] [address] [place] [address] 26715 Glenn Gudino M.D. [id number] CONSULTon 03-13-2024 CONSULT Normal [facility] HEPATITIS B SURFACE ANTIGENo n 03-13-2024 HEPATITIS B SURFACE ANTIGEN Positive Abnormal Negative [facility] Comment on above: Order Comment: Test performed using [employer] immunoassay system Performed By: #### 4 4081 ####[facility] [address] [place] [address] 83533 Glenn Gudino M.D. [id number] MAGNESIUM LEVELon 03-13-2024 Magnesium [Mass/Vol] 1.6 mg/dL Normal 1.6-2.4 [facility] Comment on above: Performed By: #### 4 6109 ####[facility] [address] [place] [address] Glenn Gudino M.D. [id number] PHOSPHORUSon 03-13-2024 Phosphate [Mass/Vol] 2.8 mg/dL Normal 2.8-4.1 [facility] Comment on above: Performed By: #### 4 6299 ####[facility] [address] [place] [address] Glenn Gudino M.D. [id number] PROTEIN / CREATININE RATIO, URINEon 03-13-2024 CREATININE,UR 62.4 mg/dL Normal [facility] Comment on above: Performed By: #### 4 7136 ####[facility] [address] [place] [address] Glenn Gudino M.D. [id number] Protein (U) [Mass/Vol] 225.4 mg/dL Normal R [facility] Comment on above: Performed By: #### 4 7136 ####[facility] [address] [place], [place] [address] Glenn Gudino M.D. [id number] PROTEIN CREATININE RATIO 3.6 ratio High 0.0-0.2 [facility] Comment on above: Performed By: #### 4 7136 ####[facility] [address] [place], [place] [address] Glenn Gudino M.D. [id number] URINALYSISon 03-13-2024 AMORPHOUS CRYSTALS Many Abnormal None Seen , Rare [facility] Comment on above: Order Comment: Micro scopic examination is performed on all urinalysis samples and only positive findings are reported. The test for blood on the chemical analytic portion of urinalysis may also be positive due to hemoglobinuria and myoglobinuria and if red blood cells are present they are quantified by microscopic examination. Performed By: #### 4 6625 ####[facility] [address] [place], [place] [address] Glenn Gudino M.D. [id number] BACTERIA, URINE Rare Abnormal None Seen [facility] Comment on above: Order Comment: Micro scopic examination is performed on all urinalysis samples and only positive findings are reported. The test for blood on the chemical analytic portion of urinalysis may also be positive due to hemoglobinuria and myoglobinuria and if red blood cells are present they are quantified by microscopic examination. Performed By: #### 4 6625 ####[facility] [address] [place], [place] [address] Glenn Gudino M.D. [id number] BILIRUBIN, URINE Negative Normal Negative [facility] Comment on above: Order Comment: Micro scopic examination is performed on all urinalysis samples and only positive findings are reported. The test for blood on the chemical analytic portion of urinalysis may also be positive due to hemoglobinuria and myoglobinuria and if red blood cells are present they are quantified by microscopic examination. Performed By: #### 4 6625 ####[facility] [address] [place], [place] [address] Glenn Gudino M.D. [id number] BLOOD, URINE Small Abnormal Negative [facility] Comment on above: Order Comment: Micro scopic examination is performed on all urinalysis samples and only positive findings are reported. The test for blood on the chemical analytic portion of urinalysis may also be positive due to hemoglobinuria and myoglobinuria and if red blood cells are present they are quantified by microscopic examination. Performed By: #### 4 6625 ####[facility] [address] [place], [place] [address] Glenn Gudino M.D. [id number] CALCIUM OXALATE CRYSTALS Many Abnormal None Seen [facility] Comment on above: Order Comment: Micro scopic examination is performed on all urinalysis samples and only positive findings are reported. The test for blood on the chemical analytic portion of urinalysis may also be positive due to hemoglobinuria and myoglobinuria and if red blood cells are present they are quantified by microscopic examination. Performed By: #### 4 6625 ####[facility] [address] [place] [address] Glenn Gudino M.D. [id number] Clarity (U) Cloudy Abnormal Clear [facility] Comment on above: Order Comment: Micro scopic examination is performed on all urinalysis samples and only positive findings are reported. The test for blood on the chemical analytic portion of urinalysis may also be positive due to hemoglobinuria and myoglobinuria and if red blood cells are present they are quantified by microscopic examination. Performed By: #### 4 6625 ####[facility] [address] [place] [address] Glenn Gudino M.D. [id number] Color (U) Yellow Normal Colorless, Yellow [facility] Comment on above: Order Comment: Micro scopic examination is performed on all urinalysis samples and only positive findings are reported. The test for blood on the chemical analytic portion of urinalysis may also be positive due to hemoglobinuria and myoglobinuria and if red blood cells are present they are quantified by microscopic examination. Performed By: #### 4 6625 ####[facility] [address] [place] [address] Glenn Gudino M.D. [id number] Glucose Ql (U) Negative Normal Negative [facility] Comment on above: Order Comment: Micro scopic examination is performed on all urinalysis samples and only positive findings are reported. The test for blood on the chemical analytic portion of urinalysis may also be positive due to hemoglobinuria and myoglobinuria and if red blood cells are present they are quantified by microscopic examination. Performed By: #### 4 6625 ####[facility] [address] [place] [address] Glenn Gudino M.D. [id number] Ketones Ql (U) Negative Normal Negative [facility] Comment on above: Order Comment: Micro scopic examination is performed on all urinalysis samples and only positive findings are reported. The test for blood on the chemical analytic portion of urinalysis may also be positive due to hemoglobinuria and myoglobinuria and if red blood cells are present they are quantified by microscopic examination. Performed By: #### 4 6625 ####[facility] [address] [place] [address] Glenn Gudino M.D. [id number] Leukocyte esterase Test strip Ql (U) Large Abnormal Negative [facility] Comment on above: Order Comment: Micro scopic examination is performed on all urinalysis samples and only positive findings are reported. The test for blood on the chemical analytic portion of urinalysis may also be positive due to hemoglobinuria and myoglobinuria and if red blood cells are present they are quantified by microscopic examination. Performed By: #### 4 6625 ####[facility] [address] [place] [address] Glenn Gudino M.D. [id number] MUCUS, URINE Many Abnormal None Seen, Rare [facility] Comment on above: Order Comment: Micro scopic examination is performed on all urinalysis samples and only positive findings are reported. The test for blood on the chemical analytic portion of urinalysis may also be positive due to hemoglobinuria and myoglobinuria and if red blood cells are present they are quantified by microscopic examination. Performed By: #### 4 6625 ####[facility] [address] [place] [address] Glenn Gudino M.D. [id number] NITRITE, URINE Negative Normal Negative [facility] Comment on above: Order Comment: Micro scopic examination is performed on all urinalysis samples and only positive findings are reported. The test for blood on the chemical analytic portion of urinalysis may also be positive due to hemoglobinuria and myoglobinuria and if red blood cells are present they are quantified by microscopic examination. Performed By: #### 4 6625 ####[facility] [address] [place] [address] Glenn Gudino M.D. [id number] pH (U) 8.5 [pH] High 5.0-7.0 [facility] Comment on above: Order Comment: Micro scopic examination is performed on all urinalysis samples and only positive findings are reported. The test for blood on the chemical analytic portion of urinalysis may also be positive due to hemoglobinuria and myoglobinuria and if red blood cells are present they are quantified by microscopic examination. Performed By: #### 4 6625 ####[facility] [address] [place] [address] 42723 Glenn Gudino M.D. [id number] PROTEIN, URINE >=300 Abnormal Negative [facility] Comment on above: Order Comment: Micro scopic examination is performed on all urinalysis samples and only positive findings are reported. The test for blood on the chemical analytic portion of urinalysis may also be positive due to hemoglobinuria and myoglobinuria and if red blood cells are present they are quantified by microscopic examination. Performed By: #### 4 6625 ####[facility] [address] [place] [address] 35759 Glenn Gudino M.D. [id number] RBC LM.HPF (Urine sed) [#/Area] 2 /[HPF] Normal 0-3 [facility] Comment on above: Order Comment: Micro scopic examination is performed on all urinalysis samples and only positive findings are reported. The test for blood on the chemical analytic portion of urinalysis may also be positive due to hemoglobinuria and myoglobinuria and if red blood cells are present they are quantified by microscopic examination. Performed By: #### 4 6625 ####[facility] [address] [place] [address] 67326 Glenn Gudino M.D. [id number] Specific gravity (U) [Rel density] 1.014 Normal 1.005-1.02 5 [facility] Comment on above: Order Comment: Micro scopic examination is performed on all urinalysis samples and only positive findings are reported. The test for blood on the chemical analytic portion of urinalysis may also be positive due to hemoglobinuria and myoglobinuria and if red blood cells are present they are quantified by microscopic examination. Performed By: #### 4 6625 ####[facility] [address] [place] [address] Glenn Gudino M.D. [id number] SQUAMOUS EPITHELIAL 1 /hpf Normal 0-4 [facility] Comment on above: Order Comment: Micro scopic examination is performed on all urinalysis samples and only positive findings are reported. The test for blood on the chemical analytic portion of urinalysis may also be positive due to hemoglobinuria and myoglobinuria and if red blood cells are present they are quantified by microscopic examination. Performed By: #### 4 6625 ####[facility] [address] [place] [address] Glenn Gudino M.D. [id number] UROBILINOGEN, URINE <2.0 Normal <2.0 [facility] Comment on above: Order Comment: Micro scopic examination is performed on all urinalysis samples and only positive findings are reported. The test for blood on the chemical analytic portion of urinalysis may also be positive due to hemoglobinuria and myoglobinuria and if red blood cells are present they are quantified by microscopic examination. Performed By: #### 4 6625 ####[facility] [address] [place] [address] Glenn Gudino M.D. [id number] WBC CLUMPS, URINE Rare Abnormal None Seen [facility] Comment on above: Order Comment: Micro scopic examination is performed on all urinalysis samples and only positive findings are reported. The test for blood on the chemical analytic portion of urinalysis may also be positive due to hemoglobinuria and myoglobinuria and if red blood cells are present they are quantified by microscopic examination. Performed By: #### 4 [id number] ####[facility] [address] [place] [address] Glenn Gudino M.D. [id number] WBC LM.HPF (Urine sed) [#/Area] 23 /[HPF] High 0-5 [facility] Comment on above: Order Comment: Micro scopic examination is performed on all urinalysis samples and only positive findings are reported. The test for blood on the chemical analytic portion of urinalysis may also be positive due to hemoglobinuria and myoglobinuria and if red blood cells are present they are quantified by microscopic examination. Performed By: #### 4 6625 ####[facility] [address] [place] [address] Glenn Gudino M.D. [id number] US DOPPLER SEGMENTAL ARTERIA L LEGS BILATERALon 03-13-2024 US DOPPLER SEGMENTAL ARTERIAL LEGS BILATERAL Normal [facility] ANTIBODY IDENTIFICATION-Con 03-12-2024 ANTIBODY IDENTIFICATION-C Normal [facility] Comment on above: Performed By: #### 4 6427_Anti-C ####[facility] [address] [place] [address] Nurys Oneill MD [id number] [facility] B12/FOLATEon 03-12-2024 Cobalamin (Vitamin B12) [Mass/Vol] 536 pg/mL Normal 232-1245 [facility] Comment on above: Performed By: #### 4 6967 ####[facility] [address] [place] [address] Glenn Gudino M.D. [id number] FOLATE 19.1 ng/mL High 3.1-17.5 [facility] Comment on above: Result Comment: Defi cient <2.2Borderline 2.2 - 3.0Excessive >17.5 Performed By: #### 4 6967 ####[facility] [address] [place], [place] [address] Glenn Gudino M.D. [id number] BASIC METABOLIC PANELon 02-26 Anion gap [Moles/Vol] 11 mmol/L Normal 10-20 [facility] Comment on above: Order Comment: [facility] has implemented the eGFR calculation approach that does not have a coefficient for race that conforms to the NKF-ASN Task Force Recommendations. Performed By: #### 4 6124 ####[facility] [address] [place] [address] 83675 Glenn Gudino M.D. [id number] Calcium [Mass/Vol] 8.3 mg/dL Low 8.4-10.2 [facility] Comment on above: Order Comment: [facility] has implemented the eGFR calculation approach that does not have a coefficient for race that conforms to the NKF-ASN Task Force Recommendations. Performed By: #### 4 6124 ####[facility] [address] [place] [address] 85388 Glenn Gudino M.D. [id number] Chloride [Moles/Vol] 98 mmol/L Normal 98-108 [facility] Comment on above: Order Comment: [facility] has implemented the eGFR calculation approach that does not have a coefficient for race that conforms to the NKF-ASN Task Force Recommendations. Performed By: #### 4 6124 ####[facility] [address] [place] [address] 01772 Glenn Gudino M.D. [id number] Creatinine [Mass/Vol] 1.88 mg/dL High 0.60-1.10 [facility] Comment on above: Order Comment: [facility] has implemented the eGFR calculation approach that does not have a coefficient for race that conforms to the NKF-ASN Task Force Recommendations. Performed By: #### 4 6124 ####[facility] [address] [place] [address] 66783 Glenn Gudino M.D. [id number] EGFR 30 mL/min/1.73 m2 Low >=60 [facility] Comment on above: Order Comment: [facility] has implemented the eGFR calculation approach that does not have a coefficient for race that conforms to the NKF-ASN Task Force Recommendations. Result Comment: Joi mated GFR was calculated using the 2020 CKD-EPI creatinine equation. Performed By: #### 4 6124 ####[facility] [address] [place] [address] 96043 Glenn Gudino M.D. [id number] Glucose [Mass/Vol] 75 mg/dL Normal 65-99 [facility] Comment on above: Order Comment: [facility] has implemented the eGFR calculation approach that does not have a coefficient for race that conforms to the NKF-ASN Task Force Recommendations. Performed By: #### 4 6124 ####[facility] [address] [place], [place] [address] Glenn Gudino M.D. [id number] HCO3 (Bld) [Moles/Vol] 32 mmol/L Normal 21-32 [facility] Comment on above: Order Comment: [facility] has implemented the eGFR calculation approach that does not have a coefficient for race that conforms to the NKF-ASN Task Force Recommendations. Performed By: #### 4 6124 ####[facility] [address] [place], [place] [address] Glenn Gudino M.D. [id number] Potassium [Moles/Vol] 4.2 mmol/L Normal 3.5-5.1 [facility] Comment on above: Order Comment: [facility] has implemented the eGFR calculation approach that does not have a coefficient for race that conforms to the NKF-ASN Task Force Recommendations. Performed By: #### 4 6124 ####[facility] [address] [place], [place] [address] Glenn Gudino M.D. [id number] Sodium [Moles/Vol] 137 mmol/L Normal 135-145 [facility] Comment on above: Order Comment: [facility] has implemented the eGFR calculation approach that does not have a coefficient for race that conforms to the NKF-ASN Task Force Recommendations. Performed By: #### 4 6124 ####[facility] [address] [place] [address] 76956 Glenn Gudino M.D. [id number] Urea nitrogen [Mass/Vol] 12 mg/dL Normal 8-25 [facility] Comment on above: Order Comment: [facility] has implemented the eGFR calculation approach that does not have a coefficient for race that conforms to the NKF-ASN Task Force Recommendations. Performed By: #### 4 6124 ####[facility] [address] [place] [address] 36412 Glenn Gudino M.D. [id number] Urea nitrogen/Creatinine [Mass ratio] 6.4 mg/mg Low 10.0-20.0 [facility] Comment on above: Order Comment: [facility] has implemented the eGFR calculation approach that does not have a coefficient for race that conforms to the NKF-ASN Task Force Recommendations. Performed By: #### 4 6124 ####[facility] [address] [place] [address] 61206 Glenn Gudino M.D. [id number] CBC W/Diff, Automatedon 02-26 PATH REV Reviewed Normal [facility] Comment on above: Result Comment: Neut rophilic leukocytosis.Normocytic anemia.Clinical correlation necessary.Cuba Manley M.D. 03/12/24 AMENDED REPORT 03/12/24 1442 PATH REV previously reported as: September Performed By: #### L 100.0100, L500.2500 ####[facility] [id number] [place], [address] CBC WITH AUTO DIFFERENTIALon 03-12-2024 AUTO NRBC 0.0 % Normal [facility] Comment on above: Performed By: #### L [id number] ####[facility] [address] [place] [address] 86339 Glenn Gudino M.D. [id number] AUTO NRBC ABS COUNT 0.00 K/mcL Normal 0.00-0.00 [facility] Comment on above: Performed By: #### L [id number] ####[facility] [address] [place], [place] [address] Glenn Gudino M.D. [id number] Erythrocyte distribution width (RBC) [Ratio] 18.3 % High 11.6-14.8 [facility] Comment on above: Performed By: #### Hugh [id number] ####[facility] [address] [place] [address] Glenn Gudino M.D. [id number] Hematocrit (Bld) [Volume fraction] 23.7 % Low 36.0-46.0 [facility] Comment on above: Performed By: #### Hugh [id number] ####[facility] [address] [place] [address] Glenn Gudino M.D. [id number] Hemoglobin (Bld) [Mass/Vol] 7.0 g/dL Low 12.0-16.0 [facility] Comment on above: Performed By: #### Hugh [id number] ####[facility] [address] [place] [address] Glenn Gudino M.D. [id number] MCH (RBC) [Entitic mass] 28.7 pg Normal 26.0-34.0 [facility] Comment on above: Performed By: #### L [id number] ####[facility] [address] [place] [address] Glenn Gudino M.D. [id number] MCV (RBC) [Entitic vol] 97.1 fL Normal 80.0-100.0 [facility] Comment on above: Performed By: #### L [id number] ####[facility] [address] [place], [place] [address] Glenn Gudino M.D. [id number] MEAN CORPUSCULAR HEMOGLOBIN CONC 29.5 g/dL Low 31.0-37.0 [facility] Comment on above: Performed By: #### Hugh [id number] ####[facility] [address] [place], [place] [address] Glenn Gudino M.D. [id number] Platelet mean volume (Bld) [Entitic vol] 9.6 fL Normal 9.4-12.4 [facility] Comment on above: Performed By: #### L [id number] ####[facility] [address] [place], [place] [address] Glenn Gudino M.D. [id number] Platelets (Bld) [#/Vol] 180 10*3/uL Normal 150-400 [facility] Comment on above: Performed By: #### L [id number] ####[facility] [address] [place], [place] [address] Glenn Gudino M.D. [id number] RBC (Bld) [#/Vol] 2.44 10*6/uL Low 4.00-5.20 [facility] Comment on above: Performed By: #### L [id number] ####[facility] [address] [place], [place] [address] Glenn Gudino M.D. [id number] WBC (Bld) [#/Vol] 5.26 10*3/uL Normal 4.50-11.00 [facility] Comment on above: Performed By: #### L [id number] ####[facility] [address] [place], [place] [address] Glenn Gudino M.D. [id number] COMPLEMENT DIRECT ANTIGLOBUL IN TESTon 03-12-2024 COMPLEMENT DIRECT ANTIGLOBULIN TEST Negative Normal [facility] Comment on above: Performed By: #### 4 6847 ####[facility] [address] [place], [place] [id number] Nurys Oneill MD [id number] [facility] CONSULTon 03-12-2024 CONSULT Normal [facility] CONSULT Normal [facility] ED Prov Noteon 03-12-2024 ED Prov Note Normal [facility] ELUTION-WAAon 03-12-2024 ELUTION-WAA Normal [facility] Comment on above: Performed By: #### 4 [id number] ####[facility] [address] [place] [address] Nurys Oneill MD [id number] RMHTS GIGGon 03-12-[address] [facility] Comment on above: Performed By: #### G IGG ####[facility] [address] [place] [address] Nurys Oneill MD [id number] RMHTS H AND Ney 03-12-2024 H AND P Normal [facility] HEPATIC FUNCTION PANELon Albumin [Mass/Vol] 2.9 g/dL Low 3.2-5.2 [facility] Comment on above: Performed By: #### 4 5866 ####[facility] [address] [place] [address] Glenn Gudino M.D. [id number] ALP [Catalytic activity/Vol] 52 U/L Normal 40-150 [facility] Comment on above: Performed By: #### 4 5866 ####[facility] [address] [place] [address] Glenn Gudino M.D. [id number] ALT < Normal 0-35 U/L [facility] Comment on above: Performed By: #### 4 5866 ####[facility] [address] [place] [address] Glenn Gudino M.D. [id number] AST [Catalytic activity/Vol] 26 U/L Normal 0-35 U/L [facility] Comment on above: Performed By: #### 4 5859 ####[facility] [address] [place] [address] Glenn Gudino M.D. [id number] Bilirubin [Mass/Vol] 0.4 mg/dL Normal 0.0-1.3 [facility] Comment on above: Performed By: #### 4 5866 ####[facility] [address] [place] [address] Glenn Gudino M.D. [id number] Bilirubin.indirect [Mass/Vol] 0.2 mg/dL Normal 0.0-0.4 [facility] Comment on above: Performed By: #### 4 5866 ####[facility] [address] [place] [address] Glenn Gudino M.D. [id number] Protein [Mass/Vol] 6.5 g/dL Normal 6.0-8.0 [facility] Comment on above: Performed By: #### 4 5866 ####[facility] [address] [place], [place] [address] Glenn Gudino M.D. [id number] IRON STUDY WITH FERRITINon Ferritin [Mass/Vol] 2720 ng/mL High 13-150 [facility] Comment on above: Performed By: #### 4 7645 ####[facility] [address] [place], [place] [address] Glenn Gudino M.D. [id number] Iron [Mass/Vol] 23 ug/dL Low 30-160 [facility] Comment on above: Performed By: #### 4 7645 ####[facility] [address] [place], [place] [address] Glenn Gudino M.D. [id number] IRON SATURATION 22 % Normal 20-50 [facility] Comment on above: Performed By: #### 4 7645 ####[facility] [address] [place], [place] [address] Glenn Gudino M.D. [id number] TIBC (CALCULATED) 104 mcg/dL Low 225-430 [facility] Comment on above: Performed By: #### 4 7664 ####[facility] [address] [place], [place] [address] Glenn Gudino M.D. [id number] LACTIC ACID, PLASMAon 2023 LACTIC ACID, PLASMA 0.8 mmol/L Normal 0.6-2.0 [facility] Comment on above: Performed By: #### 4 6053 ####[facility] [address] [place] [address] Glenn Gudino M.D. [id number] MANUAL DIFFERENTIALon 2023 BASOPHILS - ABS (DIFF) 0.00 K/mcL Normal 0.00-0.30 [facility] Comment on above: Performed By: #### 4 5461 ####[facility] [address] [place] [address] Glenn Gudino M.D. [id number] BASOPHILS - REL (DIFF) 0.0 % Normal [facility] Comment on above: Performed By: #### 4 5444 ####[facility] [address] [place] [address] Glenn Gudino M.D. [id number] EOSINOPHILS - ABS (DIFF) 0.00 K/mcL Normal 0.00-0.50 [facility] Comment on above: Performed By: #### 4 5460 ####[facility] [address] [place] [address] Glenn Gudino M.D. [id number] EOSINOPHILS - REL (DIFF) 0.0 % Normal [facility] Comment on above: Performed By: #### 4 4983 ####[facility] [address] [place] [address] Glenn Gudino M.D. [id number] LYMPHOCYTES - ABS (DIFF) 0.32 K/mcL Low 0.90-4.00 [facility] Comment on above: Performed By: #### 4 5460 ####[facility] [address] [place] [address] Glenn Gudino M.D. [id number] LYMPHOCYTES - REL (DIFF) 6.0 % Normal [facility] Comment on above: Performed By: #### 4 3272 ####[facility] [address] [place] [address] Glenn Gudino M.D. [id number] METAMYELOCYTES-REL (DIFF) 2.0 % Normal [facility] Comment on above: Performed By: #### 4 1639 ####[facility] [address] [place] [address] Glenn Gudino M.D. [id number] MONOCYTES - ABS (DIFF) 0.16 K/mcL Low 0.30-0.90 [facility] Comment on above: Performed By: #### 4 0360 ####[facility] [address] [place] [address] Glenn Gudino M.D. [id number] MONOCYTES - REL (DIFF) 3.0 % Normal [facility] Comment on above: Performed By: #### 4 8268 ####[facility] [address] [place], [place] [address] Glenn Gudino M.D. [id number] MYELOCYTES RELATIVE PERCENT 1.0 % Normal [facility] Comment on above: Performed By: #### 4 1142 ####[facility] [address] [place], [place] [address] Glenn Gudino M.D. [id number] NEUTROPHILS - ABS (DIFF) 4.79 K/mcL Normal 1.70-7.00 [facility] Comment on above: Result Comment: Left Shift Confirmed. Performed By: #### 4 5391 ####[facility] [address] [place] [address] Glenn Gudino M.D. [id number] NEUTROPHILS - REL (DIFF) 88.0 % Normal [facility] Comment on above: Performed By: #### 4 5456 ####[facility] [address] [place], [place] [address] Glenn Gudino M.D. [id number] MORPHOLOGYon 03-12-2024 OVAL SCAN Few Normal [facility] Comment on above: Performed By: #### L [id number] ####[facility] [address] [place], [place] [address] Glenn Gudino M.D. [id number] PLATELET ESTIMATE Normal Normal Normal [facility] Comment on above: Performed By: #### L AB295 ####[facility] [address] [place] [address] Glenn Gudino M.D. [id number] POLY SCAN Few Normal [facility] Comment on above: Performed By: #### L AB295 ####[facility] [address] [place] [address] Glenn Gudino M.D. [id number] RBC MORPH SCAN See Comment Normal [facility] Comment on above: Result Comment: RBC Indices confirmed with manual peripheral smear review. Performed By: #### L [id number] ####[facility] [address] [place], [place] [address] Glenn Gudino M.D. [id number] TEAR DROP CELL SCAN Few Normal [facility] Comment on above: Performed By: #### L [id number] ####[facility] [address] [place] [address] Glenn Gudino M.D. [id number] PERIPHERAL SMEAR REVIEW (KETAN HS ONLY)on 03-12-2024 SMEAR REVIEW See Comment Normal [facility] Comment on above: Result Comment: Smea r reviewed for possible immature cells. Performed By: #### C [id number] ####[facility] [address] [place], [place] [address] Glenn Gudino M.D. [id number] RETICULOCYTEon 03-12-2024 IMMATURE RETIC FRACT 26.2 % High 2.3-15.9 [facility] Comment on above: Performed By: #### 4 6452 ####[facility] [address] [place] [address] Glenn Gudino M.D. [id number] RETIC HGB EQUIVALENT 30.4 PG Normal 27.7-38.2 [facility] Comment on above: Result Comment: The cut-off for RET-He established in our institution is 27.7-38.2 pg/RBC. A value below this range is highly suggestive of iron deficiency. At values above 38.2 pg/RBC, patients are unlikely to respond to additional iron therapy. Performed By: #### 4 6452 ####[facility] [address] [place] [address] Glenn Gudino M.D. [id number] RETICULOCYTE ABSOLUTE COUNT 0.088 M/mcL High 0.025-0.07 0 [facility] Comment on above: Performed By: #### 4 6452 ####[facility] [address] [place] [address] Glenn Gudino M.D. [id number] RETICULOCYTE COUNT PCT 3.6 % Normal [facility] Comment on above: Performed By: #### 4 6452 ####[facility] [address] [place] [address] Glenn Gudino M.D. [id number] TYPE AND SCREENon 03-12-2024 TYPE AND SCREEN ABORH: O Positive AB SCREEN: Positive EXPIRATION DATE: 03/15/2024 23:59 EST Normal [facility] Comment on above: Performed By: #### 4 6619 ####[facility] [address] [place] [address] Nurys Oneill MD [id number] [facility] URIC ACIDon 03-12-2024 Urate [Mass/Vol] 3.2 mg/dL Normal 2.4-7.0 [facility] Comment on above: Performed By: #### 4 6629 ####[facility] [address] [address] Glenn Gudino M.D. [id number] US DOPPLER SEGMENTAL ARTERIA L LEGS BILATERALon 03-12-2024 US DOPPLER SEGMENTAL ARTERIAL LEGS BILATERAL Normal [facility] XR CHEST PA/APon 03-12-2024 XR CHEST PA/AP Normal [facility] Comment on above: Order Comment: Injur y/Trauma or Illness?:Illness/OtherHow long have you had these symptoms (acute/chronic)?:UnknownReason for exam?:recheck pleural effusionsHistory of cancer?:uSurgeries, chemotherapy, or radiation?:uType of Exam?:UnknownAdditional signs and symptoms?:. Abdomen/Pelvis without Conto n 03-11-2024 Abdomen/Pelvis without Cont Normal [facility] Basic Metabolic Profile (BMP )on 03-11-2024 BUN/CRE 6.6 RATIO Low 03-17 [facility] Comment on above: Performed By: #### L 100.0100, L500.2500 ####[facility] [address] [place], [address] CA,Total 8.5 mg/dL Normal 8.5-10.1 [facility] Comment on above: Performed By: #### L 100.0100, L500.2500 ####[facility] [address] [place], [address] Chloride [Moles/Vol] 98 mmol/L Normal 98-107 [facility] Comment on above: Performed By: #### L 100.0100, L500.2500 ####[facility] [address] [place], [address] CO2 [Moles/Vol] 31.0 mmol/L Normal 21.0-32.0 [facility] Comment on above: Performed By: #### L 100.0100, L500.2500 ####[facility] [address] [place], [address] Creatinine [Mass/Vol] 1.37 mg/dL High 0.55-1.02 [facility] Comment on above: Result Comment: The validity of the calculated GFR GFRAA in patients over70 years has not been determined. Clinical correlation isessential. Performed By: #### L 100.0100, L500.2500 ####[facility] [address] [place], [address] ECRCL 39.14 ml/min Normal [facility] Comment on above: Performed By: #### L 100.0100, L500.2500 ####[facility] [address] [place], [address] EST GFR - AA 50 mL/min Low >60 [facility] Comment on above: Result Comment: Afri can Nauruan GFR Calc Performed By: #### L 100.0100, L500.2500 ####[facility] [address] [place], [address] GAP 5 Normal 5-15 [facility] Comment on above: Performed By: #### L 100.0100, L500.2500 ####[facility] [address] [place], [address] GFR/1.73 sq M.predicted among non-blacks MDRD (S/P/Bld) [Vol rate/Area] 42 mL/min/{1.73_m2} Low >60 [facility] Comment on above: Result Comment: Non- GFR Calc Performed By: #### L 100.0100, L500.2500 ####[facility] [address] [place], [address] Glucose [Mass/Vol] 62 mg/dL Low 74-106 [facility] Comment on above: Performed By: #### L 100.0100, L500.2500 ####[facility] [address] [place], [address] Potassium [Moles/Vol] 3.7 mmol/L Normal 3.5-5.1 [facility] Comment on above: Performed By: #### L 100.0100, L500.2500 ####[facility] [address] [place], [address] Sodium [Moles/Vol] 135 mmol/L Low 136-145 [facility] Comment on above: Performed By: #### L 100.0100, L500.2500 ####[facility] [address] [place], [address] Urea nitrogen [Mass/Vol] 9 mg/dL Normal 7-18 [facility] Comment on above: Performed By: #### L 100.0100, L500.2500 ####[facility] [address] [place], [address] Emergency Department Summary on 03-11-2024 Emergency Department Summary Normal [facility] Foot min 3 Viewson 4 Foot min 3 Views Normal [facility] CBC-Complete Blood Cnt No Di ffon 02-29-2024 Erythrocyte distribution width (RBC) [Ratio] 17.3 % High 11.6-14.6 [facility] Comment on above: Performed By: #### L 500.4050, L100.0500 ####[facility] [address] [place], [address] Hematocrit (Bld) [Volume fraction] 23.2 % Low 37-47 [facility] Comment on above: Performed By: #### L 500.4050, L100.0500 ####[facility] [address] [place], [address] Hemoglobin (Bld) [Mass/Vol] 7.1 g/dL Low 12.0-15.0 [facility] Comment on above: Performed By: #### L 500.4050, L100.0500 ####[facility] [address] [place], [address] MCH (RBC) [Entitic mass] 28.4 pg Normal 27.0-32.0 [facility] Comment on above: Performed By: #### L 500.4050, L100.0500 ####[facility] [address] [place], [address] MCHC (RBC) [Mass/Vol] 30.6 g/dL Low 32-36 [facility] Comment on above: Performed By: #### L 500.4050, L100.0500 ####[facility] [address] [place], [address] MCV (RBC) [Entitic vol] 92.8 fL Normal 81-99 [facility] Comment on above: Performed By: #### L 500.4050, L100.0500 ####[facility] [address] [place], [address] Platelet mean volume (Bld) [Entitic vol] 9.8 fL Normal 6.2-12.0 [facility] Comment on above: Performed By: #### L 500.4050, L100.0500 ####[facility] [address] [place], [address] Platelets (Bld) [#/Vol] 207 10*3/uL Normal 150-450 [facility] Comment on above: Performed By: #### L 500.4050, L100.0500 ####[facility] [address] [place], [address] RBC (Bld) [#/Vol] 2.50 10*6/uL Low 4.2-5.4 [facility] Comment on above: Performed By: #### L 500.4050, L100.0500 ####[facility] [address] [place], [address] RDW SD 57.8 fl High 35.1-43.9 [facility] Comment on above: Performed By: #### L 500.4050, L100.0500 ####[facility] [address] [place], [address] WBC (Bld) [#/Vol] 4.3 10*3/uL Low 4.4-11.0 [facility] Comment on above: Performed By: #### L 500.4050, L100.0500 ####[facility] [address] [place], [address] Comprehensive Metabolic Prof ilon 02-29-2024 Albumin [Mass/Vol] 2.1 g/dL Low 3.2-5.0 [facility] Comment on above: Performed By: #### L 500.4050, L100.0500 ####[facility] [address] [place], [address] Albumin/Globulin [Mass ratio] 0.6 {ratio} Low 0.9-2.4 [facility] Comment on above: Performed By: #### L 500.4050, L100.0500 ####[facility] [address] [place], [address] ALK P 49 U/L Normal 45-117 [facility] Comment on above: Performed By: #### L 500.4050, L100.0500 ####[facility] [address] [place], [address] ALT [Catalytic activity/Vol] 7 U/L Low 13-56 [facility] Comment on above: Performed By: #### L 500.4050, L100.0500 ####[facility] [address] [place], [address] AST [Catalytic activity/Vol] 24 U/L Normal 15-37 [facility] Comment on above: Performed By: #### L 500.4050, L100.0500 ####[facility] [address] [place], [address] Bilirubin [Mass/Vol] 0.50 mg/dL Normal 0.20-1.00 [facility] Comment on above: Result Comment: For patients on eltrombopag therapy, use of Dimension [place] TBIL is not recommended. Performed By: #### L 500.4050, L100.0500 ####[facility] [address] [place], [address] BUN/CRE 7.8 RATIO Low 10-20 [facility] Comment on above: Performed By: #### L 500.4050, L100.0500 ####[facility] [address] [place], [address] CA,Total 7.8 mg/dL Low 8.5-10.1 [facility] Comment on above: Performed By: #### L 500.4050, L100.0500 ####[facility] [address] [place], [address] Chloride [Moles/Vol] 97 mmol/L Low 98-107 [facility] Comment on above: Performed By: #### L 500.4050, L100.0500 ####[facility] [address] [place], [address] CO2 [Moles/Vol] 34.0 mmol/L High 21.0-32.0 [facility] Comment on above: Performed By: #### L 500.4050, L100.0500 ####[facility] [address] [place], [address] Creatinine [Mass/Vol] 1.79 mg/dL High 0.55-1.02 [facility] Comment on above: Result Comment: The validity of the calculated GFR GFRAA in patients over70 years has not been determined. Clinical correlation isessential. Performed By: #### L 500.4050, L100.0500 ####[facility] [address] [place], [address] EST GFR - AA 37 mL/min Low >60 [facility] Comment on above: Result Comment: Afri can Nauruan GFR Calc Performed By: #### L 500.4050, L100.0500 ####[facility] [address] [place], [address] GAP 4 Low 5-15 [facility] Comment on above: Performed By: #### L 500.4050, L100.0500 ####[facility] [address] [place], [address] GFR/1.73 sq M.predicted among non-blacks MDRD (S/P/Bld) [Vol rate/Area] 31 mL/min/{1.73_m2} Low >60 [facility] Comment on above: Result Comment: Non- GFR Calc Performed By: #### L 500.4050, L100.0500 ####[facility] [address] [place], [address] Globulin (S) [Mass/Vol] 3.8 g/dL Normal 2.2-4.2 [facility] Comment on above: Performed By: #### L 500.4050, L100.0500 ####[facility] [address] [place], [address] Glucose [Mass/Vol] 90 mg/dL Normal 74-106 [facility] Comment on above: Performed By: #### L 500.4050, L100.0500 ####[facility] [address] [place], [address] Potassium [Moles/Vol] 2.6 mmol/L Invalid Interpretation Code 3.5-5.1 [facility] Comment on above: Result Comment: Crit ical Result(s) Called at: 11:16:28 02/29/2024 by: Jamee Addison. Results read back by same. Performed By: #### L 500.4050, L100.0500 ####[facility] [address] [place], [address] Sodium [Moles/Vol] 135 mmol/L Low 136-145 [facility] Comment on above: Performed By: #### L 500.4050, L100.0500 ####[facility] [address] [place], [address] T PROT 5.9 g/dL Low 6.4-8.2 [facility] Comment on above: Performed By: #### L 500.4050, L100.0500 ####[facility] [address] [place], [address] Urea nitrogen [Mass/Vol] 14 mg/dL Normal 7-18 [facility] Comment on above: Performed By: #### L 500.4050, L100.0500 ####[facility] [address] [place], [address] CALCIUM, IONIZEDon 4 CALCIUM IONIZED 4.3 mg/dL Low 4.5-5.3 [facility] Comment on above: Order Comment: Serum , non-CRRT source. Performed By: #### 4 5190 ####[facility] [address] [place], [place] [address] Glenn Gudino M.D. [id number] CBCon 02-25-2024 AUTO NRBC 0.0 % Normal [facility] Comment on above: Performed By: #### 4 5218 ####[facility] [address] [place], [place] [address] Glenn Gudino M.D. [id number] AUTO NRBC ABS COUNT 0.00 K/mcL Normal 0.00-0.00 [facility] Comment on above: Performed By: #### 4 5218 ####[facility] [address] [place] [address] Glenn Gudino M.D. [id number] Erythrocyte distribution width (RBC) [Ratio] 17.2 % High 11.6-14.8 [facility] Comment on above: Performed By: #### 4 5218 ####[facility] [address] [place], [place] [address] Glenn Gudino M.D. [id number] Hematocrit (Bld) [Volume fraction] 24.5 % Low 36.0-46.0 [facility] Comment on above: Performed By: #### 4 5218 ####[facility] [address] [place] [address] Glenn Gudino M.D. [id number] Hemoglobin (Bld) [Mass/Vol] 7.6 g/dL Low 12.0-16.0 [facility] Comment on above: Performed By: #### 4 5218 ####[facility] [address] [place] [address] Glenn Gudino M.D. [id number] MCH (RBC) [Entitic mass] 28.6 pg Normal 26.0-34.0 [facility] Comment on above: Performed By: #### 4 5218 ####[facility] [address] [place], [place] [address] Glenn Gudino M.D. [id number] MCV (RBC) [Entitic vol] 92.1 fL Normal 80.0-100.0 [facility] Comment on above: Performed By: #### 4 5218 ####[facility] [address] [place], [place] [address] Glenn Gudino M.D. [id number] MEAN CORPUSCULAR HEMOGLOBIN CONC 31.0 g/dL Normal 31.0-37.0 [facility] Comment on above: Performed By: #### 4 [id number] ####[facility] [address] [place], [place] [address] Glenn Gudino M.D. [id number] Platelet mean volume (Bld) [Entitic vol] 9.4 fL Normal 9.4-12.4 [facility] Comment on above: Performed By: #### 4 [id number] ####[facility] [address] [place] [address] 40325 Glenn Gudino M.D. [id number] Platelets (Bld) [#/Vol] 215 10*3/uL Normal 150-400 [facility] Comment on above: Performed By: #### 4 [id number] ####[facility] [address] [place] [address] 24200 Glenn Gudino M.D. [id number] RBC (Bld) [#/Vol] 2.66 10*6/uL Low 4.00-5.20 [facility] Comment on above: Performed By: #### 4 [id number] ####[facility] [address] [place] [address] 84441 Glenn Gudino M.D. [id number] WBC (Bld) [#/Vol] 6.32 10*3/uL Normal 4.50-11.00 [facility] Comment on above: Performed By: #### 4 [id number] ####[facility] [address] [place] [address] 49293 Glenn Gudino M.D. [id number] Disch Summon 02-25-2024 Disch Summ Normal [facility] MAGNESIUM LEVELon 02-25-2024 Magnesium [Mass/Vol] 2.0 mg/dL Normal 1.6-2.4 [facility] Comment on above: Performed By: #### 4 6109 ####[facility] [address] [place] [address] 65560 Glenn Gudino M.D. [id number] RENAL FUNCTION PANELon 02-24 Albumin [Mass/Vol] 2.6 g/dL Low 3.2-5.2 [facility] Comment on above: Order Comment: [facility] has implemented the eGFR calculation approach that does not have a coefficient for race that conforms to the NKF-ASN Task Force Recommendations. Performed By: #### 4 6449 ####[facility] [address] [place] [address] 16801 Glenn Gudino M.D. [id number] Anion gap [Moles/Vol] 16 mmol/L Normal 10-20 [facility] Comment on above: Order Comment: [facility] has implemented the eGFR calculation approach that does not have a coefficient for race that conforms to the NKF-ASN Task Force Recommendations. Performed By: #### 4 6449 ####[facility] [address] [place] [address] 32373 Glenn Gudino M.D. [id number] Calcium [Mass/Vol] 7.7 mg/dL Low 8.4-10.2 [facility] Comment on above: Order Comment: [facility] has implemented the eGFR calculation approach that does not have a coefficient for race that conforms to the NKF-ASN Task Force Recommendations. Performed By: #### 4 6449 ####[facility] [address] [place] [address] 48980 Glenn Gudino M.D. [id number] Chloride [Moles/Vol] 95 mmol/L Low 98-108 [facility] Comment on above: Order Comment: [facility] has implemented the eGFR calculation approach that does not have a coefficient for race that conforms to the NKF-ASN Task Force Recommendations. Performed By: #### 4 6449 ####[facility] [address] [place] [address] 74318 Glenn Gudino M.D. [id number] Creatinine [Mass/Vol] 2.62 mg/dL High 0.60-1.10 [facility] Comment on above: Order Comment: [facility] has implemented the eGFR calculation approach that does not have a coefficient for race that conforms to the NKF-ASN Task Force Recommendations. Performed By: #### 4 6449 ####[facility] [address] [place] [address] 20875 Glenn Gudino M.D. [id number] EGFR 20 mL/min/1.73 m2 Low >=60 [facility] Comment on above: Order Comment: [facility] has implemented the eGFR calculation approach that does not have a coefficient for race that conforms to the NKF-ASN Task Force Recommendations. Result Comment: Joi mated GFR was calculated using the 2020 CKD-EPI creatinine equation. Performed By: #### 4 6449 ####[facility] [address] [place] [address] 07909 Glenn Gudino M.D. [id number] Glucose [Mass/Vol] 93 mg/dL Normal 65-99 [facility] Comment on above: Order Comment: [facility] has implemented the eGFR calculation approach that does not have a coefficient for race that conforms to the NKF-ASN Task Force Recommendations. Performed By: #### 4 6449 ####[facility] [address] [place], [place] [address] Glenn Gudino M.D. [id number] HCO3 (Bld) [Moles/Vol] 25 mmol/L Normal 21-32 [facility] Comment on above: Order Comment: [facility] has implemented the eGFR calculation approach that does not have a coefficient for race that conforms to the NKF-ASN Task Force Recommendations. Performed By: #### 4 6449 ####[facility] [address] [place], [place] [address] Glenn Gudino M.D. [id number] Phosphate [Mass/Vol] 4.0 mg/dL Normal 2.8-4.1 [facility] Comment on above: Order Comment: [facility] has implemented the eGFR calculation approach that does not have a coefficient for race that conforms to the NKF-ASN Task Force Recommendations. Performed By: #### 4 6449 ####[facility] [address] [place], [place] [address] Glenn Gudino M.D. [id number] Potassium [Moles/Vol] 3.8 mmol/L Normal 3.5-5.1 [facility] Comment on above: Order Comment: [facility] has implemented the eGFR calculation approach that does not have a coefficient for race that conforms to the NKF-ASN Task Force Recommendations. Performed By: #### 4 6449 ####[facility] [address] [place] [address] 03007 Glenn Gudino M.D. [id number] Sodium [Moles/Vol] 132 mmol/L Low 135-145 [facility] Comment on above: Order Comment: [facility] has implemented the eGFR calculation approach that does not have a coefficient for race that conforms to the NKF-ASN Task Force Recommendations. Performed By: #### 4 6449 ####[facility] [address] [place], [place] [address] Glenn Gudino M.D. [id number] Urea nitrogen [Mass/Vol] 26 mg/dL High 8-25 [facility] Comment on above: Order Comment: [facility] has implemented the eGFR calculation approach that does not have a coefficient for race that conforms to the NKF-ASN Task Force Recommendations. Performed By: #### 4 6449 ####[facility] [address] [place] [address] 94453 Glenn Gudino M.D. [id number] Urea nitrogen/Creatinine [Mass ratio] 9.9 mg/mg Low 10.0-20.0 [facility] Comment on above: Order Comment: [facility] has implemented the eGFR calculation approach that does not have a coefficient for race that conforms to the NKF-ASN Task Force Recommendations. Performed By: #### 4 6449 ####[facility] [address] [place] [address] 69137 Glenn Gudino M.D. [id number] CALCIUM, IONIZEDon 4 CALCIUM IONIZED 4.2 mg/dL Low 4.5-5.3 [facility] Comment on above: Order Comment: Serum , non-CRRT source. Performed By: #### 4 5190 ####[facility] [address] [place] [address] 96824 Glenn Gudino M.D. [id number] CBCon 02-24-2024 AUTO NRBC 0.0 % Normal [facility] Comment on above: Performed By: #### 4 [id number] ####[facility] [address] [place], [place] [address] Glenn Gudino M.D. [id number] AUTO NRBC ABS COUNT 0.00 K/mcL Normal 0.00-0.00 [facility] Comment on above: Performed By: #### 4 [id number] ####[facility] [address] [place], [place] [address] Glenn Gudino M.D. [id number] Erythrocyte distribution width (RBC) [Ratio] 17.3 % High 11.6-14.8 [facility] Comment on above: Performed By: #### 4 [id number] ####[facility] [address] [place], [place] [address] Glenn Gudino M.D. [id number] Hematocrit (Bld) [Volume fraction] 24.7 % Low 36.0-46.0 [facility] Comment on above: Performed By: #### 4 [id number] ####[facility] [address] [place], [place] [address] Glenn Gudino M.D. [id number] Hemoglobin (Bld) [Mass/Vol] 7.7 g/dL Low 12.0-16.0 [facility] Comment on above: Performed By: #### 4 [id number] ####[facility] [address] [place], [place] [address] Glenn Gudino M.D. [id number] MCH (RBC) [Entitic mass] 29.2 pg Normal 26.0-34.0 [facility] Comment on above: Performed By: #### 4 [id number] ####[facility] [address] [place] [address] 07884 Glenn Gudino M.D. [id number] MCV (RBC) [Entitic vol] 93.6 fL Normal 80.0-100.0 [facility] Comment on above: Performed By: #### 4 [id number] ####[facility] [address] [place] [address] Glenn Gudino M.D. [id number] MEAN CORPUSCULAR HEMOGLOBIN CONC 31.2 g/dL Normal 31.0-37.0 [facility] Comment on above: Performed By: #### 4 [id number] ####[facility] [address] [place], [place] [address] Glenn Gudino M.D. [id number] Platelet mean volume (Bld) [Entitic vol] 9.7 fL Normal 9.4-12.4 [facility] Comment on above: Performed By: #### 4 [id number] ####[facility] [address] [place], [place] [address] Glenn Gudino M.D. [id number] Platelets (Bld) [#/Vol] 222 10*3/uL Normal 150-400 [facility] Comment on above: Performed By: #### 4 [id number] ####[facility] [address] [place], [place] [address] Glenn Gudino M.D. [id number] RBC (Bld) [#/Vol] 2.64 10*6/uL Low 4.00-5.20 [facility] Comment on above: Performed By: #### 4 [id number] ####[facility] [address] [place], [place] [address] Glenn Gudino M.D. [id number] WBC (Bld) [#/Vol] 6.53 10*3/uL Normal 4.50-11.00 [facility] Comment on above: Performed By: #### 4 [id number] ####[facility] [address] [place] [address] 89962 Glenn Gudino M.D. [id number] MAGNESIUM LEVELon 02-24-2024 Magnesium [Mass/Vol] 1.5 mg/dL Low 1.6-2.4 [facility] Comment on above: Performed By: #### 4 6109 ####[facility] [address] [place] [address] 49799 Glenn Gudino M.D. [id number] RENAL FUNCTION PANELon 02-23 Albumin [Mass/Vol] 2.5 g/dL Low 3.2-5.2 [facility] Comment on above: Order Comment: [facility] has implemented the eGFR calculation approach that does not have a coefficient for race that conforms to the NKF-ASN Task Force Recommendations. Performed By: #### 4 6449 ####[facility] [address] [place] [address] 42755 Gelnn Gudino M.D. [id number] Anion gap [Moles/Vol] 12 mmol/L Normal 10-20 [facility] Comment on above: Order Comment: [facility] has implemented the eGFR calculation approach that does not have a coefficient for race that conforms to the NKF-ASN Task Force Recommendations. Performed By: #### 4 6449 ####[facility] [address] [place] [address] 16911 Glenn Gudino M.D. [id number] Calcium [Mass/Vol] 7.4 mg/dL Low 8.4-10.2 [facility] Comment on above: Order Comment: [facility] has implemented the eGFR calculation approach that does not have a coefficient for race that conforms to the NKF-ASN Task Force Recommendations. Performed By: #### 4 6449 ####[facility] [address] [place] [address] 83121 Glenn Gudino M.D. [id number] Chloride [Moles/Vol] 96 mmol/L Low 98-108 [facility] Comment on above: Order Comment: [facility] has implemented the eGFR calculation approach that does not have a coefficient for race that conforms to the NKF-ASN Task Force Recommendations. Performed By: #### 4 6449 ####[facility] [address] [place] [address] 40895 Glenn Gudino M.D. [id number] Creatinine [Mass/Vol] 1.90 mg/dL High 0.60-1.10 [facility] Comment on above: Order Comment: [facility] has implemented the eGFR calculation approach that does not have a coefficient for race that conforms to the NKF-ASN Task Force Recommendations. Performed By: #### 4 6449 ####[facility] [address] [place], [place] [address] Glenn Gudino M.D. [id number] EGFR 30 mL/min/1.73 m2 Low >=60 [facility] Comment on above: Order Comment: [facility] has implemented the eGFR calculation approach that does not have a coefficient for race that conforms to the NKF-ASN Task Force Recommendations. Result Comment: Joi mated GFR was calculated using the 2020 CKD-EPI creatinine equation. Performed By: #### 4 6449 ####[facility] [address] [place] [address] 35207 Glenn Gudino M.D. [id number] Glucose [Mass/Vol] 87 mg/dL Normal 65-99 [facility] Comment on above: Order Comment: [facility] has implemented the eGFR calculation approach that does not have a coefficient for race that conforms to the NKF-ASN Task Force Recommendations. Performed By: #### 4 6449 ####[facility] [address] [place] [address] 68541 Glenn Gudino M.D. [id number] HCO3 (Bld) [Moles/Vol] 29 mmol/L Normal 21-32 [facility] Comment on above: Order Comment: [facility] has implemented the eGFR calculation approach that does not have a coefficient for race that conforms to the NKF-ASN Task Force Recommendations. Performed By: #### 4 6449 ####[facility] [address] [place], [place] [address] Glenn Gudino M.D. [id number] Phosphate [Mass/Vol] 3.0 mg/dL Normal 2.8-4.1 [facility] Comment on above: Order Comment: [facility] has implemented the eGFR calculation approach that does not have a coefficient for race that conforms to the NKF-ASN Task Force Recommendations. Performed By: #### 4 6449 ####[facility] [address] [place], [place] [address] Glenn Gudino M.D. [id number] Potassium [Moles/Vol] 3.6 mmol/L Normal 3.5-5.1 [facility] Comment on above: Order Comment: [facility] has implemented the eGFR calculation approach that does not have a coefficient for race that conforms to the NKF-ASN Task Force Recommendations. Performed By: #### 4 6449 ####[facility] [address] [place], [place] [address] Glenn Gudino M.D. [id number] Sodium [Moles/Vol] 133 mmol/L Low 135-145 [facility] Comment on above: Order Comment: [facility] has implemented the eGFR calculation approach that does not have a coefficient for race that conforms to the NKF-ASN Task Force Recommendations. Performed By: #### 4 6449 ####[facility] [address] [place], [place] [address] Glenn Gudino M.D. [id number] Urea nitrogen [Mass/Vol] 19 mg/dL Normal 8-25 [facility] Comment on above: Order Comment: [facility] has implemented the eGFR calculation approach that does not have a coefficient for race that conforms to the NKF-ASN Task Force Recommendations. Performed By: #### 4 6449 ####[facility] [address] [place], [place] [address] Glenn Gudino M.D. [id number] Urea nitrogen/Creatinine [Mass ratio] 10.0 mg/mg Normal 10.0-20.0 [facility] Comment on above: Order Comment: [facility] has implemented the eGFR calculation approach that does not have a coefficient for race that conforms to the NKF-ASN Task Force Recommendations. Performed By: #### 4 6449 ####[facility] [address] [place] [address] Glenn Gudino M.D. [id number] CALCIUM, IONIZEDon CALCIUM IONIZED 4.4 mg/dL Low 4.5-5.3 [facility] Comment on above: Order Comment: Serum , non-CRRT source. Performed By: #### 4 5190 ####[facility] [address] [place] [address] 12666 Glenn Gudino M.D. [id number] CBCon 02-23-2024 AUTO NRBC 0.0 % Normal [facility] Comment on above: Performed By: #### 4 [id number] ####[facility] [address] [place] [address] 50592 Glenn Gudino M.D. [id number] AUTO NRBC ABS COUNT 0.00 K/mcL Normal 0.00-0.00 [facility] Comment on above: Performed By: #### 4 [id number] ####[facility] [address] [place] [address] 82549 Glenn Gudino M.D. [id number] Erythrocyte distribution width (RBC) [Ratio] 17.9 % High 11.6-14.8 [facility] Comment on above: Performed By: #### 4 [id number] ####[facility] [address] [place], [place] [address] Glenn Gudino M.D. [id number] Hematocrit (Bld) [Volume fraction] 26.1 % Low 36.0-46.0 [facility] Comment on above: Performed By: #### 4 [id number] ####[facility] [address] [place] [address] Glenn Gudino M.D. [id number] Hemoglobin (Bld) [Mass/Vol] 8.1 g/dL Low 12.0-16.0 [facility] Comment on above: Performed By: #### 4 [id number] ####[facility] [address] [place] [address] Glenn Gudino M.D. [id number] MCH (RBC) [Entitic mass] 28.9 pg Normal 26.0-34.0 [facility] Comment on above: Performed By: #### 4 [id number] ####[facility] [address] [place], [place] [address] Glenn Gudino M.D. [id number] MCV (RBC) [Entitic vol] 93.2 fL Normal 80.0-100.0 [facility] Comment on above: Performed By: #### 4 [id number] ####[facility] [address] [place], [place] [address] Glenn Gudino M.D. [id number] MEAN CORPUSCULAR HEMOGLOBIN CONC 31.0 g/dL Normal 31.0-37.0 [facility] Comment on above: Performed By: #### 4 [id number] ####[facility] [address] [place], [place] [address] Glenn Gudino M.D. [id number] Platelet mean volume (Bld) [Entitic vol] 9.5 fL Normal 9.4-12.4 [facility] Comment on above: Performed By: #### 4 [id number] ####[facility] [address] [place] [address] 18635 Glenn Gudino M.D. [id number] Platelets (Bld) [#/Vol] 232 10*3/uL Normal 150-400 [facility] Comment on above: Performed By: #### 4 [id number] ####[facility] [address] [place] [address] 77533 Glenn Gudino M.D. [id number] RBC (Bld) [#/Vol] 2.80 10*6/uL Low 4.00-5.20 [facility] Comment on above: Performed By: #### 4 [id number] ####[facility] [address] [place] [address] 49306 Glenn Gudino M.D. [id number] WBC (Bld) [#/Vol] 8.31 10*3/uL Normal 4.50-11.00 [facility] Comment on above: Performed By: #### 4 [id number] ####[facility] [address] [place] [address] 60381 Glenn Gudino M.D. [id number] CONSULTon 02-23-2024 CONSULT Normal [facility] MAGNESIUM LEVELon 02-23-2024 Magnesium [Mass/Vol] 1.7 mg/dL Normal 1.6-2.4 [facility] Comment on above: Performed By: #### 4 6109 ####[facility] [address] [place] [address] 52141 Glenn Gudino M.D. [id number] RENAL FUNCTION PANELon 02-22 Albumin [Mass/Vol] 2.3 g/dL Low 3.2-5.2 [facility] Comment on above: Order Comment: [facility] has implemented the eGFR calculation approach that does not have a coefficient for race that conforms to the NKF-ASN Task Force Recommendations. Performed By: #### 4 6449 ####[facility] [address] [place] [address] 82450 Glenn Gudino M.D. [id number] Anion gap [Moles/Vol] 13 mmol/L Normal 10-20 [facility] Comment on above: Order Comment: [facility] has implemented the eGFR calculation approach that does not have a coefficient for race that conforms to the NKF-ASN Task Force Recommendations. Performed By: #### 4 6449 ####[facility] [address] [place] [address] Glenn Gudino M.D. [id number] Calcium [Mass/Vol] 7.5 mg/dL Low 8.4-10.2 [facility] Comment on above: Order Comment: [facility] has implemented the eGFR calculation approach that does not have a coefficient for race that conforms to the NKF-ASN Task Force Recommendations. Performed By: #### 4 6449 ####[facility] [address] [place], [place] [address] Glenn Gudino M.D. [id number] Chloride [Moles/Vol] 98 mmol/L Normal 98-108 [facility] Comment on above: Order Comment: [facility] has implemented the eGFR calculation approach that does not have a coefficient for race that conforms to the NKF-ASN Task Force Recommendations. Performed By: #### 4 6449 ####[facility] [address] [place] [address] 79448 Glenn Gudino M.D. [id number] Creatinine [Mass/Vol] 2.25 mg/dL High 0.60-1.10 [facility] Comment on above: Order Comment: [facility] has implemented the eGFR calculation approach that does not have a coefficient for race that conforms to the NKF-ASN Task Force Recommendations. Performed By: #### 4 6449 ####[facility] [address] [place] [address] 57603 Glenn Gudino M.D. [id number] EGFR 24 mL/min/1.73 m2 Low >=60 [facility] Comment on above: Order Comment: [facility] has implemented the eGFR calculation approach that does not have a coefficient for race that conforms to the NKF-ASN Task Force Recommendations. Result Comment: Joi mated GFR was calculated using the 2020 CKD-EPI creatinine equation. Performed By: #### 4 [id number] ####[facility] [address] [place], [place] [address] Glenn Gudino M.D. [id number] Glucose [Mass/Vol] 114 mg/dL High 65-99 [facility] Comment on above: Order Comment: [facility] has implemented the eGFR calculation approach that does not have a coefficient for race that conforms to the NKF-ASN Task Force Recommendations. Performed By: #### 4 6449 ####[facility] [address] [place], [place] [address] Glenn Gudino M.D. [id number] HCO3 (Bld) [Moles/Vol] 27 mmol/L Normal 21-32 [facility] Comment on above: Order Comment: [facility] has implemented the eGFR calculation approach that does not have a coefficient for race that conforms to the NKF-ASN Task Force Recommendations. Performed By: #### 4 6449 ####[facility] [address] [place] [address] 09208 Glenn Gudino M.D. [id number] Phosphate [Mass/Vol] 3.9 mg/dL Normal 2.8-4.1 [facility] Comment on above: Order Comment: [facility] has implemented the eGFR calculation approach that does not have a coefficient for race that conforms to the NKF-ASN Task Force Recommendations. Performed By: #### 4 6449 ####[facility] [address] [place] [address] 57216 Glenn Gudino M.D. [id number] Potassium [Moles/Vol] 3.6 mmol/L Normal 3.5-5.1 [facility] Comment on above: Order Comment: [facility] has implemented the eGFR calculation approach that does not have a coefficient for race that conforms to the NKF-ASN Task Force Recommendations. Performed By: #### 4 6449 ####[facility] [address] [place] [address] 78427 Glenn Gudino M.D. [id number] Sodium [Moles/Vol] 134 mmol/L Low 135-145 [facility] Comment on above: Order Comment: [facility] has implemented the eGFR calculation approach that does not have a coefficient for race that conforms to the NKF-ASN Task Force Recommendations. Performed By: #### 4 6449 ####[facility] [address] [place], [place] [address] Glenn Gudino M.D. [id number] Urea nitrogen [Mass/Vol] 26 mg/dL High 8-25 [facility] Comment on above: Order Comment: [facility] has implemented the eGFR calculation approach that does not have a coefficient for race that conforms to the NKF-ASN Task Force Recommendations. Performed By: #### 4 6449 ####[facility] [address] [place] [address] 99889 Glenn Gudino M.D. [id number] Urea nitrogen/Creatinine [Mass ratio] 11.6 mg/mg Normal 10.0-20.0 [facility] Comment on above: Order Comment: [facility] has implemented the eGFR calculation approach that does not have a coefficient for race that conforms to the NKF-ASN Task Force Recommendations. Performed By: #### 4 6449 ####[facility] [address] [place] [address] 00199 Glenn Gudino M.D. [id number] CALCIUM, IONIZEDon 4 CALCIUM IONIZED 4.3 mg/dL Low 4.5-5.3 [facility] Comment on above: Order Comment: Serum , non-CRRT source. Performed By: #### 4 5190 ####[facility] [address] [place], [place] [address] Glenn Gudino M.D. [id number] CBCon 02-22-2024 AUTO NRBC 0.0 % Normal [facility] Comment on above: Performed By: #### 4 [id number] ####[facility] [address] [place], [place] [address] Glenn Gudnio M.D. [id number] AUTO NRBC ABS COUNT 0.00 K/mcL Normal 0.00-0.00 [facility] Comment on above: Performed By: #### 4 [id number] ####[facility] [address] [place], [place] [address] Glenn Gudino M.D. [id number] Erythrocyte distribution width (RBC) [Ratio] 18.2 % High 11.6-14.8 [facility] Comment on above: Performed By: #### 4 [id number] ####[facility] [address] [place], [place] [address] Glenn Gudino M.D. [id number] Hematocrit (Bld) [Volume fraction] 25.0 % Low 36.0-46.0 [facility] Comment on above: Performed By: #### 4 [id number] ####[facility] [address] [place], [place] [address] Glenn Gudino M.D. [id number] Hemoglobin (Bld) [Mass/Vol] 7.9 g/dL Low 12.0-16.0 [facility] Comment on above: Performed By: #### 4 [id number] ####[facility] [address] [place], [place] [address] Glenn Gudino M.D. [id number] MCH (RBC) [Entitic mass] 29.4 pg Normal 26.0-34.0 [facility] Comment on above: Performed By: #### 4 [id number] ####[facility] [address] [place], [place] [address] Glenn Gudino M.D. [id number] MCV (RBC) [Entitic vol] 92.9 fL Normal 80.0-100.0 [facility] Comment on above: Performed By: #### 4 [id number] ####[facility] [address] [place] [address] Glenn Gudino M.D. [id number] MEAN CORPUSCULAR HEMOGLOBIN CONC 31.6 g/dL Normal 31.0-37.0 [facility] Comment on above: Performed By: #### 4 [id number] ####[facility] [address] [place] [address] Glenn Gudino M.D. [id number] Platelet mean volume (Bld) [Entitic vol] 9.4 fL Normal 9.4-12.4 [facility] Comment on above: Performed By: #### 4 [id number] ####[facility] [address] [place], [place] [address] Glenn Gudino M.D. [id number] Platelets (Bld) [#/Vol] 223 10*3/uL Normal 150-400 [facility] Comment on above: Performed By: #### 4 [id number] ####[facility] [address] [place], [place] [address] Glenn Gudino M.D. [id number] RBC (Bld) [#/Vol] 2.69 10*6/uL Low 4.00-5.20 [facility] Comment on above: Performed By: #### 4 [id number] ####[facility] [address] [place], [place] [address] Glenn Gudino M.D. [id number] WBC (Bld) [#/Vol] 15.60 10*3/uL High 4.50-11.00 [facility] Comment on above: Performed By: #### 4 [id number] ####[facility] [address] [place] [address] 57200 Glenn Gudino M.D. [id number] MAGNESIUM LEVELon 02-22-2024 Magnesium [Mass/Vol] 1.7 mg/dL Normal 1.6-2.4 [facility] Comment on above: Performed By: #### 4 6109 ####[facility] [address] [place] [address] 51134 Glenn Gudino M.D. [id number] RENAL FUNCTION PANELon 02-21 Albumin [Mass/Vol] 2.4 g/dL Low 3.2-5.2 [facility] Comment on above: Order Comment: [facility] has implemented the eGFR calculation approach that does not have a coefficient for race that conforms to the NKF-ASN Task Force Recommendations. Performed By: #### 4 6449 ####[facility] [address] [place] [address] 32989 Glenn Gudino M.D. [id number] Anion gap [Moles/Vol] 13 mmol/L Normal 10-20 [facility] Comment on above: Order Comment: [facility] has implemented the eGFR calculation approach that does not have a coefficient for race that conforms to the NKF-ASN Task Force Recommendations. Performed By: #### 4 6449 ####[facility] [address] [place] [address] 63789 Glenn Gudino M.D. [id number] Calcium [Mass/Vol] 7.2 mg/dL Low 8.4-10.2 [facility] Comment on above: Order Comment: [facility] has implemented the eGFR calculation approach that does not have a coefficient for race that conforms to the NKF-ASN Task Force Recommendations. Performed By: #### 4 6449 ####[facility] [address] [place] [address] 39528 Glenn Gudino M.D. [id number] Chloride [Moles/Vol] 98 mmol/L Normal 98-108 [facility] Comment on above: Order Comment: [facility] has implemented the eGFR calculation approach that does not have a coefficient for race that conforms to the NKF-ASN Task Force Recommendations. Performed By: #### 4 6449 ####[facility] [address] [place], [place] [address] Glenn Gudino M.D. [id number] Creatinine [Mass/Vol] 1.51 mg/dL High 0.60-1.10 [facility] Comment on above: Order Comment: [facility] has implemented the eGFR calculation approach that does not have a coefficient for race that conforms to the NKF-ASN Task Force Recommendations. Performed By: #### 4 6449 ####[facility] [address] [place], [place] [address] Glenn Gudino M.D. [id number] EGFR 39 mL/min/1.73 m2 Low >=60 [facility] Comment on above: Order Comment: [facility] has implemented the eGFR calculation approach that does not have a coefficient for race that conforms to the NKF-ASN Task Force Recommendations. Result Comment: Joi mated GFR was calculated using the 2020 CKD-EPI creatinine equation. Performed By: #### 4 6449 ####[facility] [address] [place] [address] 63026 Glenn Gudino M.D. [id number] Glucose [Mass/Vol] 140 mg/dL High 65-99 [facility] Comment on above: Order Comment: [facility] has implemented the eGFR calculation approach that does not have a coefficient for race that conforms to the NKF-ASN Task Force Recommendations. Performed By: #### 4 6449 ####[facility] [address] [place] [address] 38864 Glenn Gudino M.D. [id number] HCO3 (Bld) [Moles/Vol] 28 mmol/L Normal 21-32 [facility] Comment on above: Order Comment: [facility] has implemented the eGFR calculation approach that does not have a coefficient for race that conforms to the NKF-ASN Task Force Recommendations. Performed By: #### 4 6449 ####[facility] [address] [place] [address] 01715 Glenn Gudino M.D. [id number] Phosphate [Mass/Vol] 3.0 mg/dL Normal 2.8-4.1 [facility] Comment on above: Order Comment: [facility] has implemented the eGFR calculation approach that does not have a coefficient for race that conforms to the NKF-ASN Task Force Recommendations. Performed By: #### 4 6449 ####[facility] [address] [place] [address] 16837 Glenn Gudino M.D. [id number] Potassium [Moles/Vol] 3.6 mmol/L Normal 3.5-5.1 [facility] Comment on above: Order Comment: [facility] has implemented the eGFR calculation approach that does not have a coefficient for race that conforms to the NKF-ASN Task Force Recommendations. Performed By: #### 4 6449 ####[facility] [address] [place] [address] 81846 Glenn Gudino M.D. [id number] Sodium [Moles/Vol] 135 mmol/L Normal 135-145 [facility] Comment on above: Order Comment: [facility] has implemented the eGFR calculation approach that does not have a coefficient for race that conforms to the NKF-ASN Task Force Recommendations. Performed By: #### 4 6449 ####[facility] [address] [place] [address] 40389 Glenn Gudino M.D. [id number] Urea nitrogen [Mass/Vol] 20 mg/dL Normal 8-25 [facility] Comment on above: Order Comment: [facility] has implemented the eGFR calculation approach that does not have a coefficient for race that conforms to the NKF-ASN Task Force Recommendations. Performed By: #### 4 6449 ####[facility] [address] [place] [address] Glenn Gudino M.D. [id number] Urea nitrogen/Creatinine [Mass ratio] 13.2 mg/mg Normal 10.0-20.0 [facility] Comment on above: Order Comment: [facility] has implemented the eGFR calculation approach that does not have a coefficient for race that conforms to the NKF-ASN Task Force Recommendations. Performed By: #### 4 6449 ####[facility] [address] [place] [address] Glenn Gudino M.D. [id number] ANTIBODY IDENTIFICATION-Con 02-21-2024 ANTIBODY IDENTIFICATION-C Normal [facility] Comment on above: Performed By: #### 4 6427_Anti-C ####[facility] [address] [place] [address] Nurys Oneill MD [id number] [facility] CALCIUM, IONIZEDon CALCIUM IONIZED 4.5 mg/dL Normal 4.5-5.3 [facility] Comment on above: Order Comment: Serum , non-CRRT source. Performed By: #### 4 5190 ####[facility] [address] [place] [address] Glenn Gudino M.D. [id number] CBCon 02-21-2024 AUTO NRBC 0.0 % Normal [facility] Comment on above: Performed By: #### 4 [id number] ####[facility] [address] [place], [place] [address] Glenn Gudino M.D. [id number] AUTO NRBC ABS COUNT 0.00 K/mcL Normal 0.00-0.00 [facility] Comment on above: Performed By: #### 4 [id number] ####[facility] [address] [place], [place] [address] Glenn Gudino M.D. [id number] Erythrocyte distribution width (RBC) [Ratio] 18.6 % High 11.6-14.8 [facility] Comment on above: Performed By: #### 4 [id number] ####[facility] [address] [place], [place] [address] Glenn Gudino M.D. [id number] Hematocrit (Bld) [Volume fraction] 24.4 % Low 36.0-46.0 [facility] Comment on above: Performed By: #### 4 [id number] ####[facility] [address] [place] [address] Glenn Gudino M.D. [id number] Hemoglobin (Bld) [Mass/Vol] 7.8 g/dL Low 12.0-16.0 [facility] Comment on above: Result Comment: Zuleima pheral smear reviewed manually Performed By: #### 4 [id number] ####[facility] [address] [place] [address] Glenn Gudino M.D. [id number] MCH (RBC) [Entitic mass] 29.4 pg Normal 26.0-34.0 [facility] Comment on above: Performed By: #### 4 [id number] ####[facility] [address] [place], [place] [address] Glenn Gudino M.D. [id number] MCV (RBC) [Entitic vol] 92.1 fL Normal 80.0-100.0 [facility] Comment on above: Performed By: #### 4 [id number] ####[facility] [address] [place], [place] [address] Glenn Gudino M.D. [id number] MEAN CORPUSCULAR HEMOGLOBIN CONC 32.0 g/dL Normal 31.0-37.0 [facility] Comment on above: Performed By: #### 4 5211 ####[facility] [address] [place], [place] [address] Glenn Gudino M.D. [id number] Platelet mean volume (Bld) [Entitic vol] 9.5 fL Normal 9.4-12.4 [facility] Comment on above: Performed By: #### 4 [id number] ####[facility] [address] [place] [address] 11526 Glenn Gudino M.D. [id number] Platelets (Bld) [#/Vol] 234 10*3/uL Normal 150-400 [facility] Comment on above: Performed By: #### 4 [id number] ####[facility] [address] [place] [address] 88741 Glenn Gudino M.D. [id number] RBC (Bld) [#/Vol] 2.65 10*6/uL Low 4.00-5.20 [facility] Comment on above: Performed By: #### 4 [id number] ####[facility] [address] [place] [address] 50574 Glenn Gudino M.D. [id number] WBC (Bld) [#/Vol] 27.78 10*3/uL High 4.50-11.00 [facility] Comment on above: Performed By: #### 4 [id number] ####[facility] [address] [place] [address] 61465 Gelnn Gudino M.D. [id number] CONSULTon 02-21-2024 CONSULT Normal [facility] MAGNESIUM LEVELon 02-21-2024 Magnesium [Mass/Vol] 1.8 mg/dL Normal 1.6-2.4 [facility] Comment on above: Performed By: #### 4 6109 ####[facility] [address] [place] [address] 96870 Glenn Gudino M.D. [id number] POC GLUCOSE - [facility] 024 Glucose [Mass/Vol] 85 mg/dL Normal 65-99 [facility] Comment on above: Performed By: #### 4 6932 ####[facility] [address] [place] [address] [id number] [facility] RENAL FUNCTION PANELon 02-20 Albumin [Mass/Vol] 2.2 g/dL Low 3.2-5.2 [facility] Comment on above: Order Comment: [facility] has implemented the eGFR calculation approach that does not have a coefficient for race that conforms to the NKF-ASN Task Force Recommendations. Performed By: #### 4 6449 ####[facility] [address] [place] [address] Glenn Gudino M.D. [id number] Anion gap [Moles/Vol] 18 mmol/L Normal 10-20 [facility] Comment on above: Order Comment: [facility] has implemented the eGFR calculation approach that does not have a coefficient for race that conforms to the NKF-ASN Task Force Recommendations. Performed By: #### 4 6449 ####[facility] [address] [place] [address] Glenn Gudino M.D. [id number] Calcium [Mass/Vol] 7.8 mg/dL Low 8.4-10.2 [facility] Comment on above: Order Comment: [facility] has implemented the eGFR calculation approach that does not have a coefficient for race that conforms to the NKF-ASN Task Force Recommendations. Performed By: #### 4 6449 ####[facility] [address] [place] [address] Glenn Gudino M.D. [id number] Chloride [Moles/Vol] 99 mmol/L Normal 98-108 [facility] Comment on above: Order Comment: [facility] has implemented the eGFR calculation approach that does not have a coefficient for race that conforms to the NKF-ASN Task Force Recommendations. Performed By: #### 4 6449 ####[facility] [address] [place] [address] Glenn Gudino M.D. [id number] Creatinine [Mass/Vol] 2.59 mg/dL High 0.60-1.10 [facility] Comment on above: Order Comment: [facility] has implemented the eGFR calculation approach that does not have a coefficient for race that conforms to the NKF-ASN Task Force Recommendations. Performed By: #### 4 6449 ####[facility] [address] [place] [address] 86306 Glenn Gudino M.D. [id number] EGFR 21 mL/min/1.73 m2 Low >=60 [facility] Comment on above: Order Comment: [facility] has implemented the eGFR calculation approach that does not have a coefficient for race that conforms to the NKF-ASN Task Force Recommendations. Result Comment: Joi mated GFR was calculated using the 2020 CKD-EPI creatinine equation. Performed By: #### 4 6449 ####[facility] [address] [place], [place] [address] Glenn Gudino M.D. [id number] Glucose [Mass/Vol] 64 mg/dL Low 65-99 [facility] Comment on above: Order Comment: [facility] has implemented the eGFR calculation approach that does not have a coefficient for race that conforms to the NKF-ASN Task Force Recommendations. Performed By: #### 4 6449 ####[facility] [address] [place] [address] 68403 Glenn Gudino M.D. [id number] HCO3 (Bld) [Moles/Vol] 23 mmol/L Normal 21-32 [facility] Comment on above: Order Comment: [facility] has implemented the eGFR calculation approach that does not have a coefficient for race that conforms to the NKF-ASN Task Force Recommendations. Performed By: #### 4 6449 ####[facility] [address] [place] [address] 74279 Glenn Gudino M.D. [id number] Phosphate [Mass/Vol] 5.1 mg/dL High 2.8-4.1 [facility] Comment on above: Order Comment: [facility] has implemented the eGFR calculation approach that does not have a coefficient for race that conforms to the NKF-ASN Task Force Recommendations. Performed By: #### 4 6449 ####[facility] [address] [place] [address] 01311 Glenn Gudino M.D. [id number] Potassium [Moles/Vol] 4.0 mmol/L Normal 3.5-5.1 [facility] Comment on above: Order Comment: [facility] has implemented the eGFR calculation approach that does not have a coefficient for race that conforms to the NKF-ASN Task Force Recommendations. Performed By: #### 4 6449 ####[facility] [address] [place] [address] 30379 Glenn Gudino M.D. [id number] Sodium [Moles/Vol] 136 mmol/L Normal 135-145 [facility] Comment on above: Order Comment: [facility] has implemented the eGFR calculation approach that does not have a coefficient for race that conforms to the NKF-ASN Task Force Recommendations. Performed By: #### 4 6449 ####[facility] [address] [place] [address] 61790 Glenn Gudino M.D. [id number] Urea nitrogen [Mass/Vol] 39 mg/dL High 8-25 [facility] Comment on above: Order Comment: [facility] has implemented the eGFR calculation approach that does not have a coefficient for race that conforms to the NKF-ASN Task Force Recommendations. Performed By: #### 4 6449 ####[facility] [address] [place] [address] 09156 Glenn Gudino M.D. [id number] Urea nitrogen/Creatinine [Mass ratio] 15.1 mg/mg Normal 10.0-20.0 [facility] Comment on above: Order Comment: [facility] has implemented the eGFR calculation approach that does not have a coefficient for race that conforms to the NKF-ASN Task Force Recommendations. Performed By: #### 4 6449 ####[facility] [address] [place] [address] 80889 Glenn Gudino M.D. [id number] TYPE AND SCREENon 02-21-2024 TYPE AND SCREEN ABORH: O Positive AB SCREEN: Positive EXPIRATION DATE: 02/24/2024 23:59 EST Normal [facility] Comment on above: Performed By: #### 4 6619 ####[facility] [address] [place] [address] Nurys Oneill MD [id number] [facility] URINE AEROBIC CULTUREon 01-28 URINE AEROBIC CULTURE URINE CULTURE Three or more morphotypes suggesting probable contamination during specimen (urine) collection. Suggest repeat if clinically indicated Normal [facility] Comment on above: Performed By: #### 4 4053 ####[facility] [address] [place], [place] [address] Glenn Gudino M.D. [id number] CALCIUM, IONIZEDon CALCIUM IONIZED 4.5 mg/dL Normal 4.5-5.3 [facility] Comment on above: Order Comment: Serum , non-CRRT source. Performed By: #### 4 5190 ####[facility] [address] [place] [address] 20510 Glenn Gudino M.D. [id number] CBCon 02-20-2024 AUTO NRBC 0.0 % Normal [facility] Comment on above: Performed By: #### 4 [id number] ####[facility] [address] [place] [address] 56001 Glenn Gudino M.D. [id number] AUTO NRBC ABS COUNT 0.00 K/mcL Normal 0.00-0.00 [facility] Comment on above: Performed By: #### 4 [id number] ####[facility] [address] [place], [place] [address] Glenn Gudino M.D. [id number] Erythrocyte distribution width (RBC) [Ratio] 18.7 % High 11.6-14.8 [facility] Comment on above: Performed By: #### 4 [id number] ####[facility] [address] [place], [place] [address] Glenn Gudino M.D. [id number] Hematocrit (Bld) [Volume fraction] 27.2 % Low 36.0-46.0 [facility] Comment on above: Performed By: #### 4 [id number] ####[facility] [address] [place] [address] Glenn Gudino M.D. [id number] Hemoglobin (Bld) [Mass/Vol] 8.6 g/dL Low 12.0-16.0 [facility] Comment on above: Performed By: #### 4 [id number] ####[facility] [address] [place] [address] Glenn Gudino M.D. [id number] MCH (RBC) [Entitic mass] 28.9 pg Normal 26.0-34.0 [facility] Comment on above: Performed By: #### 4 [id number] ####[facility] [address] [place], [place] [address]Karma Gudino M.D. [id number] MCV (RBC) [Entitic vol] 91.3 fL Normal 80.0-100.0 [facility] Comment on above: Performed By: #### 4 [id number] ####[facility] [address] [place], [place] [address] Glenn Gudino M.D. [id number] MEAN CORPUSCULAR HEMOGLOBIN CONC 31.6 g/dL Normal 31.0-37.0 [facility] Comment on above: Performed By: #### 4 [id number] ####[facility] [address] [place], [place] [address]Karma Gudino M.D. [id number] Platelet mean volume (Bld) [Entitic vol] 9.2 fL Low 9.4-12.4 [facility] Comment on above: Performed By: #### 4 [id number] ####[facility] [address] [place] [address] 31218 Glenn Gudino M.D. [id number] Platelets (Bld) [#/Vol] 244 10*3/uL Normal 150-400 [facility] Comment on above: Performed By: #### 4 [id number] ####[facility] [address] [place] [address] 91742 Glenn Gudino M.D. [id number] RBC (Bld) [#/Vol] 2.98 10*6/uL Low 4.00-5.20 [facility] Comment on above: Performed By: #### 4 [id number] ####[facility] [address] [place], [place] [address] Glenn Gudino M.D. [id number] WBC (Bld) [#/Vol] 21.11 10*3/uL High 4.50-11.00 [facility] Comment on above: Performed By: #### 4 [id number] ####[facility] [address] [place] [address] 36464 Glenn Gudino M.D. [id number] MAGNESIUM LEVELon 02-20-2024 Magnesium [Mass/Vol] 2.0 mg/dL Normal 1.6-2.4 [facility] Comment on above: Performed By: #### 4 6109 ####[facility] [address] [place] [address] 83581 Glenn Gudino M.D. [id number] RENAL FUNCTION PANELon 02-19 Albumin [Mass/Vol] 2.6 g/dL Low 3.2-5.2 [facility] Comment on above: Order Comment: [facility] has implemented the eGFR calculation approach that does not have a coefficient for race that conforms to the NKF-ASN Task Force Recommendations. Performed By: #### 4 6449 ####[facility] [address] [place] [address] 86911 Glenn Gudino M.D. [id number] Anion gap [Moles/Vol] 16 mmol/L Normal 10-20 [facility] Comment on above: Order Comment: [facility] has implemented the eGFR calculation approach that does not have a coefficient for race that conforms to the NKF-ASN Task Force Recommendations. Performed By: #### 4 6449 ####[facility] [address] [place] [address] 07690 Glenn Gudino M.D. [id number] Calcium [Mass/Vol] 8.2 mg/dL Low 8.4-10.2 [facility] Comment on above: Order Comment: [facility] has implemented the eGFR calculation approach that does not have a coefficient for race that conforms to the NKF-ASN Task Force Recommendations. Performed By: #### 4 6449 ####[facility] [address] [place] [address] 45000 Glenn Gudino M.D. [id number] Chloride [Moles/Vol] 96 mmol/L Low 98-108 [facility] Comment on above: Order Comment: [facility] has implemented the eGFR calculation approach that does not have a coefficient for race that conforms to the NKF-ASN Task Force Recommendations. Performed By: #### 4 6449 ####[facility] [address] [place] [address] 23067 Glenn Gudino M.D. [id number] Creatinine [Mass/Vol] 1.96 mg/dL High 0.60-1.10 [facility] Comment on above: Order Comment: [facility] has implemented the eGFR calculation approach that does not have a coefficient for race that conforms to the NKF-ASN Task Force Recommendations. Performed By: #### 4 6449 ####[facility] [address] [place] [address] 48915 Glenn Gudino M.D. [id number] EGFR 29 mL/min/1.73 m2 Low >=60 [facility] Comment on above: Order Comment: [facility] has implemented the eGFR calculation approach that does not have a coefficient for race that conforms to the NKF-ASN Task Force Recommendations. Result Comment: Joi mated GFR was calculated using the 2020 CKD-EPI creatinine equation. Performed By: #### 4 6449 ####[facility] [address] [place] [address] 05157 Glenn Gudino M.D. [id number] Glucose [Mass/Vol] 99 mg/dL Normal 65-99 [facility] Comment on above: Order Comment: [facility] has implemented the eGFR calculation approach that does not have a coefficient for race that conforms to the NKF-ASN Task Force Recommendations. Performed By: #### 4 6449 ####[facility] [address] [place], [place] [address] Glenn Gudino M.D. [id number] HCO3 (Bld) [Moles/Vol] 26 mmol/L Normal 21-32 [facility] Comment on above: Order Comment: [facility] has implemented the eGFR calculation approach that does not have a coefficient for race that conforms to the NKF-ASN Task Force Recommendations. Performed By: #### 4 6449 ####[facility] [address] [place] [address] 97145 Glenn Gudino M.D. [id number] Phosphate [Mass/Vol] 3.4 mg/dL Normal 2.8-4.1 [facility] Comment on above: Order Comment: [facility] has implemented the eGFR calculation approach that does not have a coefficient for race that conforms to the NKF-ASN Task Force Recommendations. Performed By: #### 4 6449 ####[facility] [address] [place] [address] 10775 Glenn Gudino M.D. [id number] Potassium [Moles/Vol] 4.2 mmol/L Normal 3.5-5.1 [facility] Comment on above: Order Comment: [facility] has implemented the eGFR calculation approach that does not have a coefficient for race that conforms to the NKF-ASN Task Force Recommendations. Result Comment: Slig htly Hemolyzed Performed By: #### 4 6449 ####[facility] [address] [place], [place] [address] Glenn Gudino M.D. [id number] Sodium [Moles/Vol] 134 mmol/L Low 135-145 [facility] Comment on above: Order Comment: [facility] has implemented the eGFR calculation approach that does not have a coefficient for race that conforms to the NKF-ASN Task Force Recommendations. Performed By: #### 4 6449 ####[facility] [address] [place] [address] Glenn Gudino M.D. [id number] Urea nitrogen [Mass/Vol] 27 mg/dL High 8-25 [facility] Comment on above: Order Comment: [facility] has implemented the eGFR calculation approach that does not have a coefficient for race that conforms to the NKF-ASN Task Force Recommendations. Performed By: #### 4 6449 ####[facility] [address] [place], [place] [address] Glenn Gudino M.D. [id number] Urea nitrogen/Creatinine [Mass ratio] 13.8 mg/mg Normal 10.0-20.0 [facility] Comment on above: Order Comment: [facility] has implemented the eGFR calculation approach that does not have a coefficient for race that conforms to the NKF-ASN Task Force Recommendations. Performed By: #### 4 6449 ####[facility] [address] [place], [place] [address] Glenn Gudino M.D. [id number] XR CHEST PA/APon 02-20-2024 XR CHEST PA/AP Normal [facility] Comment on above: Order Comment: Injur y/Trauma or Illness?:Illness/OtherHow long have you had these symptoms (acute/chronic)?:UnknownReason for exam?:pleural effusionHistory of cancer?:uSurgeries, chemotherapy, or radiation?:uType of Exam?:UnknownAdditional signs and symptoms?:no CALCIUM, IONIZEDon CALCIUM IONIZED 4.7 mg/dL Normal 4.5-5.3 [facility] Comment on above: Order Comment: Serum , non-CRRT source. Performed By: #### 4 5190 ####[facility] [address] [place] [address] Glenn Gudino M.D. [id number] CBCon 02-19-2024 AUTO NRBC 0.0 % Normal [facility] Comment on above: Performed By: #### 4 [id number] ####[facility] [address] [place] [address] Glenn Gudino M.D. [id number] AUTO NRBC ABS COUNT 0.00 K/mcL Normal 0.00-0.00 [facility] Comment on above: Performed By: #### 4 [id number] ####[facility] [address] [place] [address] Glenn Gudino M.D. [id number] Erythrocyte distribution width (RBC) [Ratio] 19.5 % High 11.6-14.8 [facility] Comment on above: Performed By: #### 4 [id number] ####[facility] [address] [place], [place] [address] Glenn Gudino M.D. [id number] Hematocrit (Bld) [Volume fraction] 25.3 % Low 36.0-46.0 [facility] Comment on above: Performed By: #### 4 [id number] ####[facility] [address] [place] [address] Glenn Gudino M.D. [id number] Hemoglobin (Bld) [Mass/Vol] 8.0 g/dL Low 12.0-16.0 [facility] Comment on above: Performed By: #### 4 [id number] ####[facility] [address] [place], [place] [address] Glenn Gudino M.D. [id number] MCH (RBC) [Entitic mass] 29.1 pg Normal 26.0-34.0 [facility] Comment on above: Performed By: #### 4 [id number] ####[facility] [address] [place] [address] Glenn Gudino M.D. [id number] MCV (RBC) [Entitic vol] 92.0 fL Normal 80.0-100.0 [facility] Comment on above: Performed By: #### 4 [id number] ####[facility] [address] [place] [address] Glenn Gudino M.D. [id number] MEAN CORPUSCULAR HEMOGLOBIN CONC 31.6 g/dL Normal 31.0-37.0 [facility] Comment on above: Performed By: #### 4 [id number] ####[facility] [address] [place], [place] [address]Karma Gudino M.D. [id number] Platelet mean volume (Bld) [Entitic vol] 9.7 fL Normal 9.4-12.4 [facility] Comment on above: Performed By: #### 4 [id number] ####[facility] [address] [place], [place] [address] Glenn Gudino M.D. [id number] Platelets (Bld) [#/Vol] 235 10*3/uL Normal 150-400 [facility] Comment on above: Performed By: #### 4 [id number] ####[facility] [address] [place] [address] Glenn Gudino M.D. [id number] RBC (Bld) [#/Vol] 2.75 10*6/uL Low 4.00-5.20 [facility] Comment on above: Performed By: #### 4 [id number] ####[facility] [address] [place], [place] [address] Glenn Gudino M.D. [id number] WBC (Bld) [#/Vol] 9.65 10*3/uL Normal 4.50-11.00 [facility] Comment on above: Performed By: #### 4 [id number] ####[facility] [address] [place] [address] Glenn Gudino M.D. [id number] MAGNESIUM LEVELon 02-19-2024 Magnesium [Mass/Vol] 1.8 mg/dL Normal 1.6-2.4 [facility] Comment on above: Performed By: #### 4 6109 ####[facility] [address] [place] [address] Glenn Gudino M.D. [id number] [facility] Glucose [Mass/Vol] 133 mg/dL High 65-99 [facility] Comment on above: Performed By: #### 4 6932 ####[facility] [address] [place] [address] [id number] [facility]-18 Albumin [Mass/Vol] 2.3 g/dL Low 3.2-5.2 [facility] Comment on above: Order Comment: [facility] has implemented the eGFR calculation approach that does not have a coefficient for race that conforms to the NKF-ASN Task Force Recommendations. Performed By: #### 4 6449 ####[facility] [address] [place], [place] [address] Glenn Gudino M.D. [id number] Anion gap [Moles/Vol] 15 mmol/L Normal 10-20 [facility] Comment on above: Order Comment: [facility] has implemented the eGFR calculation approach that does not have a coefficient for race that conforms to the NKF-ASN Task Force Recommendations. Performed By: #### 4 6449 ####[facility] [address] [place] [address] 12569 Glenn Gudino M.D. [id number] Calcium [Mass/Vol] 8.5 mg/dL Normal 8.4-10.2 [facility] Comment on above: Order Comment: [facility] has implemented the eGFR calculation approach that does not have a coefficient for race that conforms to the NKF-ASN Task Force Recommendations. Performed By: #### 4 6449 ####[facility] [address] [place], [place] [address] Glenn Gudino M.D. [id number] Chloride [Moles/Vol] 99 mmol/L Normal 98-108 [facility] Comment on above: Order Comment: [facility] has implemented the eGFR calculation approach that does not have a coefficient for race that conforms to the NKF-ASN Task Force Recommendations. Performed By: #### 4 6449 ####[facility] [address] [place] [address] 08655 Glenn Gudino M.D. [id number] Creatinine [Mass/Vol] 2.11 mg/dL High 0.60-1.10 [facility] Comment on above: Order Comment: [facility] has implemented the eGFR calculation approach that does not have a coefficient for race that conforms to the NKF-ASN Task Force Recommendations. Performed By: #### 4 6449 ####[facility] [address] [place] [address] 10669 Glenn Gudino M.D. [id number] EGFR 26 mL/min/1.73 m2 Low >=60 [facility] Comment on above: Order Comment: [facility] has implemented the eGFR calculation approach that does not have a coefficient for race that conforms to the NKF-ASN Task Force Recommendations. Result Comment: Joi mated GFR was calculated using the 2020 CKD-EPI creatinine equation. Performed By: #### 4 6449 ####[facility] [address] [place] [address] 88845 Glenn Gudino M.D. [id number] Glucose [Mass/Vol] 127 mg/dL High 65-99 [facility] Comment on above: Order Comment: [facility] has implemented the eGFR calculation approach that does not have a coefficient for race that conforms to the NKF-ASN Task Force Recommendations. Performed By: #### 4 6449 ####[facility] [address] [place] [address] 30805 Glenn Gudino M.D. [id number] HCO3 (Bld) [Moles/Vol] 28 mmol/L Normal 21-32 [facility] Comment on above: Order Comment: [facility] has implemented the eGFR calculation approach that does not have a coefficient for race that conforms to the NKF-ASN Task Force Recommendations. Performed By: #### 4 6449 ####[facility] [address] [place] [address] 45123 Glenn Gudino M.D. [id number] Phosphate [Mass/Vol] 4.5 mg/dL High 2.8-4.1 [facility] Comment on above: Order Comment: [facility] has implemented the eGFR calculation approach that does not have a coefficient for race that conforms to the NKF-ASN Task Force Recommendations. Performed By: #### 4 6449 ####[facility] [address] [place] [address] 93815 Glenn Gudino M.D. [id number] Potassium [Moles/Vol] 5.5 mmol/L High 3.5-5.1 [facility] Comment on above: Order Comment: [facility] has implemented the eGFR calculation approach that does not have a coefficient for race that conforms to the NKF-ASN Task Force Recommendations. Result Comment: Slig htly Hemolyzed Performed By: #### 4 6449 ####[facility] [address] [place] [address] 80269 Glenn Gudino M.D. [id number] Sodium [Moles/Vol] 136 mmol/L Normal 135-145 [facility] Comment on above: Order Comment: [facility] has implemented the eGFR calculation approach that does not have a coefficient for race that conforms to the NKF-ASN Task Force Recommendations. Performed By: #### 4 6449 ####[facility] [address] [place] [address] 25789 Glenn Gudino M.D. [id number] Urea nitrogen [Mass/Vol] 39 mg/dL High 8-25 [facility] Comment on above: Order Comment: [facility] has implemented the eGFR calculation approach that does not have a coefficient for race that conforms to the NKF-ASN Task Force Recommendations. Performed By: #### 4 6449 ####[facility] [address] [place] [address] 79890 Glenn Gudino M.D. [id number] Urea nitrogen/Creatinine [Mass ratio] 18.5 mg/mg Normal 10.0-20.0 [facility] Comment on above: Order Comment: [facility] has implemented the eGFR calculation approach that does not have a coefficient for race that conforms to the NKF-ASN Task Force Recommendations. Performed By: #### 4 6449 ####[facility] [address] [place] [address] 78490 Glenn Gudino M.D. [id number] XR CHEST PA/APon 02-19-2024 XR CHEST PA/AP Normal [facility] Comment on above: Order Comment: Injur y/Trauma or Illness?:Illness/OtherHow long have you had these symptoms (acute/chronic)?:AcuteReason for exam?:pleural effusionHistory of cancer?:uSurgeries, chemotherapy, or radiation?:uType of Exam?:Subsequent/Follow-upAdditional signs and symptoms?:pleural effusion ANTIBODY IDENTIFICATION-FYAo n 02-18-2024 ANTIBODY IDENTIFICATION-FYA Normal [facility] Comment on above: Performed By: #### 4 6427_Anti-Fya ####[facility] [address] [place] [address] Nurys Oneill MD [id number] RMHTS CBCon 02-18-2024 AUTO NRBC 0.0 % Normal [facility] Comment on above: Performed By: #### 4 [id number] ####[facility] [address] [place] [address] Glenn Gudino M.D. [id number] AUTO NRBC ABS COUNT 0.00 K/mcL Normal 0.00-0.00 [facility] Comment on above: Performed By: #### 4 [id number] ####[facility] [address] [place] [address] Glenn Gudino M.D. [id number] Erythrocyte distribution width (RBC) [Ratio] 19.9 % High 11.6-14.8 [facility] Comment on above: Performed By: #### 4 [id number] ####[facility] [address] [place], [place] [address] Glenn Gudino M.D. [id number] Hematocrit (Bld) [Volume fraction] 27.8 % Low 36.0-46.0 [facility] Comment on above: Performed By: #### 4 [id number] ####[facility] [address] [place], [place] [address] Glenn Gudino M.D. [id number] Hemoglobin (Bld) [Mass/Vol] 8.9 g/dL Low 12.0-16.0 [facility] Comment on above: Performed By: #### 4 [id number] ####[facility] [address] [place] [address] Glenn Gudino M.D. [id number] MCH (RBC) [Entitic mass] 29.6 pg Normal 26.0-34.0 [facility] Comment on above: Performed By: #### 4 [id number] ####[facility] [address] [place], [place] [address] Glenn Gudino M.D. [id number] MCV (RBC) [Entitic vol] 92.4 fL Normal 80.0-100.0 [facility] Comment on above: Performed By: #### 4 [id number] ####[facility] [address] [place], [place] [address] Glenn Gudino M.D. [id number] MEAN CORPUSCULAR HEMOGLOBIN CONC 32.0 g/dL Normal 31.0-37.0 [facility] Comment on above: Performed By: #### 4 [id number] ####[facility] [address] [place], [place] [address] Glenn Gudino M.D. [id number] Platelet mean volume (Bld) [Entitic vol] 9.6 fL Normal 9.4-12.4 [facility] Comment on above: Performed By: #### 4 [id number] ####[facility] [address] [place], [place] [address] Glenn Gudino M.D. [id number] Platelets (Bld) [#/Vol] 222 10*3/uL Normal 150-400 [facility] Comment on above: Performed By: #### 4 [id number] ####[facility] [address] [place] [address] 01348 Glenn Gudino M.D. [id number] RBC (Bld) [#/Vol] 3.01 10*6/uL Low 4.00-5.20 [facility] Comment on above: Performed By: #### 4 [id number] ####[facility] [address] [place], [place] [address] Glenn Gudino M.D. [id number] WBC (Bld) [#/Vol] 14.78 10*3/uL High 4.50-11.00 [facility] Comment on above: Performed By: #### 4 [id number] ####[facility] [address] [place] [address] Glenn Gudino M.D. [id number] MAGNESIUM LEVELon 02-18-2024 Magnesium [Mass/Vol] 1.9 mg/dL Normal 1.6-2.4 [facility] Comment on above: Performed By: #### 4 6109 ####[facility] [address] [place] [address] Glenn Gudino M.D. [id number] [facility] Glucose [Mass/Vol] 114 mg/dL High 65-99 [facility] Comment on above: Performed By: #### 4 6932 ####[facility] [address] [place] [address] [id number] [facility] RENAL FUNCTION PANELon 02-17 Albumin [Mass/Vol] 2.3 g/dL Low 3.2-5.2 [facility] Comment on above: Order Comment: [facility] has implemented the eGFR calculation approach that does not have a coefficient for race that conforms to the NKF-ASN Task Force Recommendations. Performed By: #### 4 6449 ####[facility] [address] [place], [place] [address] Glenn Gudino M.D. [id number] Anion gap [Moles/Vol] 16 mmol/L Normal 10-20 [facility] Comment on above: Order Comment: [facility] has implemented the eGFR calculation approach that does not have a coefficient for race that conforms to the NKF-ASN Task Force Recommendations. Performed By: #### 4 6449 ####[facility] [address] [place], [place] [address] Glenn Gudino M.D. [id number] Calcium [Mass/Vol] 8.2 mg/dL Low 8.4-10.2 [facility] Comment on above: Order Comment: [facility] has implemented the eGFR calculation approach that does not have a coefficient for race that conforms to the NKF-ASN Task Force Recommendations. Performed By: #### 4 6449 ####[facility] [address] [place] [address] 09547 Glenn Gudino M.D. [id number] Chloride [Moles/Vol] 96 mmol/L Low 98-108 [facility] Comment on above: Order Comment: [facility] has implemented the eGFR calculation approach that does not have a coefficient for race that conforms to the NKF-ASN Task Force Recommendations. Performed By: #### 4 6449 ####[facility] [address] [place], [place] [address] Glenn Gudino M.D. [id number] Creatinine [Mass/Vol] 2.72 mg/dL High 0.60-1.10 [facility] Comment on above: Order Comment: [facility] has implemented the eGFR calculation approach that does not have a coefficient for race that conforms to the NKF-ASN Task Force Recommendations. Performed By: #### 4 6449 ####[facility] [address] [place], [place] [address] Glenn Gudino M.D. [id number] EGFR 19 mL/min/1.73 m2 Low >=60 [facility] Comment on above: Order Comment: [facility] has implemented the eGFR calculation approach that does not have a coefficient for race that conforms to the NKF-ASN Task Force Recommendations. Result Comment: Joi mated GFR was calculated using the 2020 CKD-EPI creatinine equation. Performed By: #### 4 6449 ####[facility] [address] [place], [place] [address] Glenn Gudino M.D. [id number] Glucose [Mass/Vol] 159 mg/dL High 65-99 [facility] Comment on above: Order Comment: [facility] has implemented the eGFR calculation approach that does not have a coefficient for race that conforms to the NKF-ASN Task Force Recommendations. Performed By: #### 4 6449 ####[facility] [address] [place] [address] 80489 Glenn Gudino M.D. [id number] HCO3 (Bld) [Moles/Vol] 25 mmol/L Normal 21-32 [facility] Comment on above: Order Comment: [facility] has implemented the eGFR calculation approach that does not have a coefficient for race that conforms to the NKF-ASN Task Force Recommendations. Performed By: #### 4 6449 ####[facility] [address] [place] [address] 56045 Glenn Gudino M.D. [id number] Phosphate [Mass/Vol] 5.4 mg/dL High 2.8-4.1 [facility] Comment on above: Order Comment: [facility] has implemented the eGFR calculation approach that does not have a coefficient for race that conforms to the NKF-ASN Task Force Recommendations. Performed By: #### 4 6449 ####[facility] [address] [place] [address] 26019 Glenn Gudino M.D. [id number] Potassium [Moles/Vol] 6.9 mmol/L Off scale high 3.5-5.1 [facility] Comment on above: Order Comment: [facility] has implemented the eGFR calculation approach that does not have a coefficient for race that conforms to the NKF-ASN Task Force Recommendations. Performed By: #### 4 6449 ####[facility] [address] [place] [address] 67951 Glenn Gudino M.D. [id number] Sodium [Moles/Vol] 130 mmol/L Low 135-145 [facility] Comment on above: Order Comment: [facility] has implemented the eGFR calculation approach that does not have a coefficient for race that conforms to the NKF-ASN Task Force Recommendations. Performed By: #### 4 6449 ####[facility] [address] [place], [place] [address] Glenn Gudino M.D. [id number] Urea nitrogen [Mass/Vol] 56 mg/dL High 8-25 [facility] Comment on above: Order Comment: [facility] has implemented the eGFR calculation approach that does not have a coefficient for race that conforms to the NKF-ASN Task Force Recommendations. Performed By: #### 4 6449 ####[facility] [address] [place], [place] [address] Glenn Gudino M.D. [id number] Urea nitrogen/Creatinine [Mass ratio] 20.6 mg/mg High 10.0-20.0 [facility] Comment on above: Order Comment: [facility] has implemented the eGFR calculation approach that does not have a coefficient for race that conforms to the NKF-ASN Task Force Recommendations. Performed By: #### 4 6449 ####[facility] [address] [place] [address] lGenn Gudino M.D. [id number] TYPE AND SCREENon 02-18-2024 TYPE AND SCREEN Normal [facility] Comment on above: Performed By: #### 4 6619 ####[facility] [address] [place] [address] Nurys Oneill MD [id number] [facility] CALCIUM, IONIZEDon CALCIUM IONIZED 4.5 mg/dL Normal 4.5-5.3 [facility] Comment on above: Order Comment: Serum , non-CRRT source. Performed By: #### 4 5190 ####[facility] [address] [place], [place] [address] Glenn Gudino M.D. [id number] CBCon 02-17-2024 AUTO NRBC 0.0 % Normal [facility] Comment on above: Performed By: #### 4 [id number] ####[facility] [address] [place] [address] Glenn Gudino M.D. [id number] AUTO NRBC ABS COUNT 0.00 K/mcL Normal 0.00-0.00 [facility] Comment on above: Performed By: #### 4 [id number] ####[facility] [address] [place] [address] Glenn Gudino M.D. [id number] Erythrocyte distribution width (RBC) [Ratio] 20.7 % High 11.6-14.8 [facility] Comment on above: Performed By: #### 4 [id number] ####[facility] [address] [place] [address] Glenn Gudino M.D. [id number] Hematocrit (Bld) [Volume fraction] 22.3 % Low 36.0-46.0 [facility] Comment on above: Performed By: #### 4 [id number] ####[facility] [address] [place] [address] Glenn Gudino M.D. [id number] Hemoglobin (Bld) [Mass/Vol] 6.9 g/dL Off scale low 12.0-16.0 [facility] Comment on above: Result Comment: Resu lts called and read back verified by:.[email or web address] [id number] Performed By: #### 4 [id number] ####[facility] [address] [place], [place] [address] Glenn Gudino M.D. [id number] MCH (RBC) [Entitic mass] 29.6 pg Normal 26.0-34.0 [facility] Comment on above: Performed By: #### 4 [id number] ####[facility] [address] [place], [place] [address] Glenn Gudino M.D. [id number] MCV (RBC) [Entitic vol] 95.7 fL Normal 80.0-100.0 [facility] Comment on above: Performed By: #### 4 [id number] ####[facility] [address] [place] [address] 38473 Glenn Gudino M.D. [id number] MEAN CORPUSCULAR HEMOGLOBIN CONC 30.9 g/dL Low 31.0-37.0 [facility] Comment on above: Performed By: #### 4 5218 ####[facility] [address] [place], [place] [address] Glenn Gudino M.D. [id number] Platelet mean volume (Bld) [Entitic vol] 10.0 fL Normal 9.4-12.4 [facility] Comment on above: Performed By: #### 4 [id number] ####[facility] [address] [place], [place] [address] Glenn Gudino M.D. [id number] Platelets (Bld) [#/Vol] 187 10*3/uL Normal 150-400 [facility] Comment on above: Performed By: #### 4 [id number] ####[facility] [address] [place] [address] 51386 Glenn Gudino M.D. [id number] RBC (Bld) [#/Vol] 2.33 10*6/uL Low 4.00-5.20 [facility] Comment on above: Performed By: #### 4 [id number] ####[facility] [address] [place] [address] 33295 Glenn Gudino M.D. [id number] WBC (Bld) [#/Vol] 13.82 10*3/uL High 4.50-11.00 [facility] Comment on above: Performed By: #### 4 [id number] ####[facility] [address] [place] [address] 21503 Glenn Gudino M.D. [id number] HEMOGLOBIN AND HEMATOCRITon 02-17-2024 Hematocrit (Bld) [Volume fraction] 27.0 % Low 36.0-46.0 [facility] Comment on above: Performed By: #### 4 6909 ####[facility] [address] [place] [address] 01453 Glenn Guidno M.D. [id number] Hemoglobin (Bld) [Mass/Vol] 8.5 g/dL Low 12.0-16.0 [facility] Comment on above: Performed By: #### 4 6909 ####[facility] [address] [place] [address] Glenn Gudino M.D. [id number] MAGNESIUM LEVELon 02-17-2024 Magnesium [Mass/Vol] 2.0 mg/dL Normal 1.6-2.4 [facility] Comment on above: Performed By: #### 4 6109 ####[facility] [address] [place] [address] Glenn Gudino M.D. [id number] [facility] Glucose [Mass/Vol] 116 mg/dL High 65-99 [facility] Comment on above: Performed By: #### 4 6932 ####[facility] [address] [place] [address] [id number] [facility] Glucose [Mass/Vol] 147 mg/dL High 65-99 [facility] Comment on above: Performed By: #### 4 6932 ####[facility] [address] [place] [address] [id number] [facility] RENAL FUNCTION PANELon 02-16 Albumin [Mass/Vol] 2.1 g/dL Low 3.2-5.2 [facility] Comment on above: Order Comment: [facility] has implemented the eGFR calculation approach that does not have a coefficient for race that conforms to the NKF-ASN Task Force Recommendations. Performed By: #### 4 6449 ####[facility] [address] [place] [address] Glenn Gudino M.D. [id number] Anion gap [Moles/Vol] 12 mmol/L Normal 10-20 [facility] Comment on above: Order Comment: [facility] has implemented the eGFR calculation approach that does not have a coefficient for race that conforms to the NKF-ASN Task Force Recommendations. Performed By: #### 4 6449 ####[facility] [address] [place], [place] [address] Glenn Gudino M.D. [id number] Calcium [Mass/Vol] 7.7 mg/dL Low 8.4-10.2 [facility] Comment on above: Order Comment: [facility] has implemented the eGFR calculation approach that does not have a coefficient for race that conforms to the NKF-ASN Task Force Recommendations. Performed By: #### 4 6449 ####[facility] [address] [place], [place] [address] Glenn Gudino M.D. [id number] Chloride [Moles/Vol] 97 mmol/L Low 98-108 [facility] Comment on above: Order Comment: [facility] has implemented the eGFR calculation approach that does not have a coefficient for race that conforms to the NKF-ASN Task Force Recommendations. Performed By: #### 4 6449 ####[facility] [address] [place], [place] [address] Glenn Gudino M.D. [id number] Creatinine [Mass/Vol] 2.06 mg/dL High 0.60-1.10 [facility] Comment on above: Order Comment: [facility] has implemented the eGFR calculation approach that does not have a coefficient for race that conforms to the NKF-ASN Task Force Recommendations. Performed By: #### 4 6449 ####[facility] [address] [place], [place] [address] Glenn Gudino M.D. [id number] EGFR 27 mL/min/1.73 m2 Low >=60 [facility] Comment on above: Order Comment: [facility] has implemented the eGFR calculation approach that does not have a coefficient for race that conforms to the NKF-ASN Task Force Recommendations. Result Comment: Joi mated GFR was calculated using the 2020 CKD-EPI creatinine equation. Performed By: #### 4 6449 ####[facility] [address] [place] [address] Glenn Gudino M.D. [id number] Glucose [Mass/Vol] 145 mg/dL High 65-99 [facility] Comment on above: Order Comment: [facility] has implemented the eGFR calculation approach that does not have a coefficient for race that conforms to the NKF-ASN Task Force Recommendations. Performed By: #### 4 6449 ####[facility] [address] [place], [place] [address] Glenn Gudino M.D. [id number] HCO3 (Bld) [Moles/Vol] 28 mmol/L Normal 21-32 [facility] Comment on above: Order Comment: [facility] has implemented the eGFR calculation approach that does not have a coefficient for race that conforms to the NKF-ASN Task Force Recommendations. Performed By: #### 4 6449 ####[facility] [address] [place], [place] [address] Glenn Gudino M.D. [id number] Phosphate [Mass/Vol] 3.6 mg/dL Normal 2.8-4.1 [facility] Comment on above: Order Comment: [facility] has implemented the eGFR calculation approach that does not have a coefficient for race that conforms to the NKF-ASN Task Force Recommendations. Performed By: #### 4 6449 ####[facility] [address] [place] [address] 70351 Glenn Gudino M.D. [id number] Potassium [Moles/Vol] 5.4 mmol/L High 3.5-5.1 [facility] Comment on above: Order Comment: [facility] has implemented the eGFR calculation approach that does not have a coefficient for race that conforms to the NKF-ASN Task Force Recommendations. Performed By: #### 4 6449 ####[facility] [address] [place] [address] 00353 Glenn Gudino M.D. [id number] Sodium [Moles/Vol] 132 mmol/L Low 135-145 [facility] Comment on above: Order Comment: [facility] has implemented the eGFR calculation approach that does not have a coefficient for race that conforms to the NKF-ASN Task Force Recommendations. Performed By: #### 4 6449 ####[facility] [address] [place] [address] 32690 Glenn Gudino M.D. [id number] Urea nitrogen [Mass/Vol] 43 mg/dL High 8-25 [facility] Comment on above: Order Comment: [facility] has implemented the eGFR calculation approach that does not have a coefficient for race that conforms to the NKF-ASN Task Force Recommendations. Performed By: #### 4 6449 ####[facility] [address] [place] [address] 49385 Glenn Gudino M.D. [id number] Urea nitrogen/Creatinine [Mass ratio] 20.9 mg/mg High 10.0-20.0 [facility] Comment on above: Order Comment: [facility] has implemented the eGFR calculation approach that does not have a coefficient for race that conforms to the NKF-ASN Task Force Recommendations. Performed By: #### 4 6449 ####[facility] [address] [place] [address] 42856 Glenn Gudino M.D. [id number] CALCIUM, IONIZEDon 4 CALCIUM IONIZED 4.8 mg/dL Normal 4.5-5.3 [facility] Comment on above: Order Comment: Serum , non-CRRT source. Performed By: #### 4 5190 ####[facility] [address] [place] [address] 15631 Glenn Gudino M.D. [id number] CALCIUM IONIZED 4.5 mg/dL Normal 4.5-5.3 [facility] Comment on above: Order Comment: Serum , non-CRRT source. Performed By: #### 4 5190 ####[facility] [address] [place] [address] Glenn Gudino M.D. [id number] CBCon 02-16-2024 AUTO NRBC 0.0 % Normal [facility] Comment on above: Performed By: #### 4 [id number] ####[facility] [address] [place], [place] [address] Glenn Gudino M.D. [id number] AUTO NRBC ABS COUNT 0.00 K/mcL Normal 0.00-0.00 [facility] Comment on above: Performed By: #### 4 [id number] ####[facility] [address] [place] [address] Glenn Gudino M.D. [id number] Erythrocyte distribution width (RBC) [Ratio] 20.1 % High 11.6-14.8 [facility] Comment on above: Performed By: #### 4 [id number] ####[facility] [address] [place], [place] [address] Glenn Gudino M.D. [id number] Hematocrit (Bld) [Volume fraction] 22.6 % Low 36.0-46.0 [facility] Comment on above: Performed By: #### 4 [id number] ####[facility] [address] [place], [place] [address] Glenn Gudino M.D. [id number] Hemoglobin (Bld) [Mass/Vol] 7.0 g/dL Low 12.0-16.0 [facility] Comment on above: Performed By: #### 4 [id number] ####[facility] [address] [place], [place] [address] Glenn Gudino M.D. [id number] MCH (RBC) [Entitic mass] 28.6 pg Normal 26.0-34.0 [facility] Comment on above: Performed By: #### 4 [id number] ####[facility] [address] [place], [place] [address] Glenn Gudino M.D. [id number] MCV (RBC) [Entitic vol] 92.2 fL Normal 80.0-100.0 [facility] Comment on above: Performed By: #### 4 [id number] ####[facility] [address] [place] [address] Glenn Gudino M.D. [id number] MEAN CORPUSCULAR HEMOGLOBIN CONC 31.0 g/dL Normal 31.0-37.0 [facility] Comment on above: Performed By: #### 4 5218 ####[facility] [address] [place] [address] Glenn Gudino M.D. [id number] Platelet mean volume (Bld) [Entitic vol] 9.7 fL Normal 9.4-12.4 [facility] Comment on above: Performed By: #### 4 [id number] ####[facility] [address] [place], [place] [address] Glenn Gudino M.D. [id number] Platelets (Bld) [#/Vol] 203 10*3/uL Normal 150-400 [facility] Comment on above: Performed By: #### 4 [id number] ####[facility] [address] [place], [place] [address] Glenn Gudino M.D. [id number] RBC (Bld) [#/Vol] 2.45 10*6/uL Low 4.00-5.20 [facility] Comment on above: Performed By: #### 4 5218 ####[facility] [address] [place] [address] Glenn Gudino M.D. [id number] WBC (Bld) [#/Vol] 14.40 10*3/uL High 4.50-11.00 [facility] Comment on above: Performed By: #### 4 5218 ####[facility] [address] [place] [address] Glenn Gudino M.D. [id number] AUTO NRBC 0.0 % Normal [facility] Comment on above: Performed By: #### 4 5218 ####[facility] [address] [place] [address] Glenn Gudino M.D. [id number] AUTO NRBC ABS COUNT 0.00 K/mcL Normal 0.00-0.00 [facility] Comment on above: Performed By: #### 4 [id number] ####[facility] [address] [place] [address] Glenn Gudino M.D. [id number] Erythrocyte distribution width (RBC) [Ratio] 19.9 % High 11.6-14.8 [facility] Comment on above: Performed By: #### 4 5218 ####[facility] [address] [place] [address] Glenn Gudino M.D. [id number] Hematocrit (Bld) [Volume fraction] 14.9 % Low 36.0-46.0 [facility] Comment on above: Result Comment: Repe ated verified Performed By: #### 4 5218 ####[facility] [address] [place] [address] Glenn Gudino M.D. [id number] Hemoglobin (Bld) [Mass/Vol] 4.6 g/dL Off scale low 12.0-16.0 [facility] Comment on above: Result Comment: Resu lts called and read back verified by:.[id number] Performed By: #### 4 5218 ####[facility] [address] [place] [address] 76867 Glenn Gudino M.D. [id number] MCH (RBC) [Entitic mass] 29.1 pg Normal 26.0-34.0 [facility] Comment on above: Performed By: #### 4 5218 ####[facility] [address] [place], [place] [address] Glenn Gudino M.D. [id number] MCV (RBC) [Entitic vol] 94.3 fL Normal 80.0-100.0 [facility] Comment on above: Performed By: #### 4 [id number] ####[facility] [address] [place] [address] Glenn Gudino M.D. [id number] MEAN CORPUSCULAR HEMOGLOBIN CONC 30.9 g/dL Low 31.0-37.0 [facility] Comment on above: Performed By: #### 4 5218 ####[facility] [address] [place], [place] [address] Glenn Gudino M.D. [id number] Platelet mean volume (Bld) [Entitic vol] 9.5 fL Normal 9.4-12.4 [facility] Comment on above: Performed By: #### 4 [id number] ####[facility] [address] [place], [place] [address] Glenn Gudino M.D. [id number] Platelets (Bld) [#/Vol] 286 10*3/uL Normal 150-400 [facility] Comment on above: Performed By: #### 4 [id number] ####[facility] [address] [place], [place] [address] Glenn Gudino M.D. [id number] RBC (Bld) [#/Vol] 1.58 10*6/uL Low 4.00-5.20 [facility] Comment on above: Performed By: #### 4 5218 ####[facility] [address] [place], [place] [address] Glenn Gudino M.D. [id number] WBC (Bld) [#/Vol] 21.59 10*3/uL High 4.50-11.00 [facility] Comment on above: Performed By: #### 4 5218 ####[facility] [address] [place], [place] [address] Glenn Gudino M.D. [id number] HEMOGLOBIN A1Con 02-16-2024 Glucose [Mass/Vol] 103 mg/dL Normal 74-114 [facility] Comment on above: Order Comment: Irina l: 4.2% - 5.6%Increased risk for diabetes: 5.7% - 6.4%Diabetes: >= 6.5%Pediatrics: No established reference rangeEstimated average glucose: 74-114 mg/dL Performed By: #### 4 8202 ####[facility] [address] [place], [place] [address] Glenn Gudino M.D. [id number] HbA1c (Bld) [Mass fraction] 5.2 % Normal 4.2-5.6 [facility] Comment on above: Order Comment: Irina l: 4.2% - 5.6%Increased risk for diabetes: 5.7% - 6.4%Diabetes: >= 6.5%Pediatrics: No established reference rangeEstimated average glucose: 74-114 mg/dL Performed By: #### 4 8202 ####[facility] [address] [place], [place] [address] Glenn Gudino M.D. [id number] HEMOGLOBIN AND HEMATOCRITon 02-16-2024 Hematocrit (Bld) [Volume fraction] 23.6 % Low 36.0-46.0 [facility] Comment on above: Performed By: #### 4 6909 ####[facility] [address] [place], [place] [address] Glenn Gudino M.D. [id number] Hemoglobin (Bld) [Mass/Vol] 7.5 g/dL Low 12.0-16.0 [facility] Comment on above: Result Comment: Resu lts checked Performed By: #### 4 6909 ####[facility] [address] [place] [address] Glenn Gudino M.D. [id number] MAGNESIUM LEVELon 02-16-2024 Magnesium [Mass/Vol] 1.8 mg/dL Normal 1.6-2.4 [facility] Comment on above: Performed By: #### 4 6109 ####[facility] [address] [place] [address] Glenn Gudino M.D. [id number] Magnesium [Mass/Vol] 1.9 mg/dL Normal 1.6-2.4 [facility] Comment on above: Performed By: #### 4 6109 ####[facility] [address] [place] [address] Glenn Gudino M.D. [id number] POC GLUCOSE - [facility] 024 Glucose [Mass/Vol] 110 mg/dL High 65-99 [facility] Comment on above: Performed By: #### 4 4846 ####[facility] [address] [place] [address] [id number] [facility] Glucose [Mass/Vol] 94 mg/dL Normal 65-99 [facility] Comment on above: Performed By: #### 4 2398 ####[facility] [address] [place] [address] [id number] [facility] Glucose [Mass/Vol] 169 mg/dL High 65-99 [facility] Comment on above: Performed By: #### 4 7911 ####[facility] [address] [place] [address] [id number] [facility] Glucose [Mass/Vol] 64 mg/dL Low 65-99 [facility] Comment on above: Performed By: #### 4 9262 ####[facility] [address] [place] [address] [id number] [facility] Glucose [Mass/Vol] 56 mg/dL Low 65-99 [facility] Comment on above: Performed By: #### 4 6932 ####[facility] [address] [place] [address] [id number] [facility] Glucose [Mass/Vol] 60 mg/dL Low 65-99 [facility] Comment on above: Performed By: #### 4 6932 ####[facility] [address] [place] [address] [id number] [facility] Glucose [Mass/Vol] 72 mg/dL Normal 65-99 [facility] Comment on above: Performed By: #### 4 6932 ####[facility] [address] [place] [address] [id number] [facility] Glucose [Mass/Vol] 125 mg/dL High 65-99 [facility] Comment on above: Performed By: #### 4 6932 ####[facility] [address] [place] [address] [id number] [facility] Glucose [Mass/Vol] 127 mg/dL High 65-99 [facility] Comment on above: Performed By: #### 4 6932 ####[facility] [address] [place] [address] [id number] [facility] Glucose [Mass/Vol] 113 mg/dL High 65-99 [facility] Comment on above: Performed By: #### 4 6932 ####[facility] [address] [place] [address] [id number] [facility] RENAL FUNCTION PANELon 02-15 Albumin [Mass/Vol] 2.3 g/dL Low 3.2-5.2 [facility] Comment on above: Order Comment: [facility] has implemented the eGFR calculation approach that does not have a coefficient for race that conforms to the NKF-ASN Task Force Recommendations. Performed By: #### 4 6449 ####[facility] [address] [place] [address] Glenn Gudino M.D. [id number] Anion gap [Moles/Vol] 12 mmol/L Normal 10-20 [facility] Comment on above: Order Comment: [facility] has implemented the eGFR calculation approach that does not have a coefficient for race that conforms to the NKF-ASN Task Force Recommendations. Performed By: #### 4 6449 ####[facility] [address] [place] [address] 53067 Glenn Gudino M.D. [id number] Calcium [Mass/Vol] 8.2 mg/dL Low 8.4-10.2 [facility] Comment on above: Order Comment: [facility] has implemented the eGFR calculation approach that does not have a coefficient for race that conforms to the NKF-ASN Task Force Recommendations. Performed By: #### 4 6449 ####[facility] [address] [address] [place], [place] [address] Glenn Gudino M.D. [id number] Chloride [Moles/Vol] 98 mmol/L Normal 98-108 [facility] Comment on above: Order Comment: [facility] has implemented the eGFR calculation approach that does not have a coefficient for race that conforms to the NKF-ASN Task Force Recommendations. Performed By: #### 4 6449 ####[facility] [address] [place] [address] 665[address] Glenn Gudino M.D. [id number] Creatinine [Mass/Vol] 1.00 mg/dL Normal 0.60-1.10 [facility] Comment on above: Order Comment: [facility] has implemented the eGFR calculation approach that does not have a coefficient for race that conforms to the NKF-ASN Task Force Recommendations. Performed By: #### 4 6449 ####[facility] [address] [place] [address]2578 Glenn Gudino M.D. [id number] EGFR 64 mL/min/1.73 m2 Normal >=60 [facility] Comment on above: Order Comment: [facility] has implemented the eGFR calculation approach that does not have a coefficient for race that conforms to the NKF-ASN Task Force Recommendations. Result Comment: Joi mated GFR was calculated using the 2020 CKD-EPI creatinine equation. Performed By: #### 4 6449 ####[facility] [address] [place] [address] Glenn Gudino M.D. [id number] Glucose [Mass/Vol] 110 mg/dL High 65-99 [facility] Comment on above: Order Comment: [facility] has implemented the eGFR calculation approach that does not have a coefficient for race that conforms to the NKF-ASN Task Force Recommendations. Performed By: #### 4 6449 ####[facility] [address] [place], [place] [address] Glenn Gudino M.D. [id number] HCO3 (Bld) [Moles/Vol] 29 mmol/L Normal 21-32 [facility] Comment on above: Order Comment: [facility] has implemented the eGFR calculation approach that does not have a coefficient for race that conforms to the NKF-ASN Task Force Recommendations. Performed By: #### 4 6449 ####[facility] [address] [place] [address] Glenn Gudino M.D. [id number] Phosphate [Mass/Vol] 1.0 mg/dL Low 2.8-4.1 [facility] Comment on above: Order Comment: [facility] has implemented the eGFR calculation approach that does not have a coefficient for race that conforms to the NKF-ASN Task Force Recommendations. Performed By: #### 4 6449 ####[facility] [address] [place] [address] 73181 Glenn Gudino M.D. [id number] Potassium [Moles/Vol] 3.6 mmol/L Normal 3.5-5.1 [facility] Comment on above: Order Comment: [facility] has implemented the eGFR calculation approach that does not have a coefficient for race that conforms to the NKF-ASN Task Force Recommendations. Performed By: #### 4 6449 ####[facility] [address] [place] [address] Glenn Gudino M.D. [id number] Sodium [Moles/Vol] 135 mmol/L Normal 135-145 [facility] Comment on above: Order Comment: [facility] has implemented the eGFR calculation approach that does not have a coefficient for race that conforms to the NKF-ASN Task Force Recommendations. Performed By: #### 4 6449 ####[facility] [address] [place] [address] Glenn Gudino M.D. [id number] Urea nitrogen [Mass/Vol] 27 mg/dL High 8-25 [facility] Comment on above: Order Comment: [facility] has implemented the eGFR calculation approach that does not have a coefficient for race that conforms to the NKF-ASN Task Force Recommendations. Performed By: #### 4 6449 ####[facility] [address] [place] [address] 98778 Glenn Gudino M.D. [id number] Urea nitrogen/Creatinine [Mass ratio] 27.0 mg/mg High 10.0-20.0 [facility] Comment on above: Order Comment: [facility] has implemented the eGFR calculation approach that does not have a coefficient for race that conforms to the NKF-ASN Task Force Recommendations. Performed By: #### 4 6449 ####[facility] [address] [place] [address] 08342 Glenn Gudino M.D. [id number] XR CHEST PA/APon 02-16-2024 XR CHEST PA/AP Normal [facility] Comment on above: Order Comment: Injur y/Trauma or Illness?:Illness/OtherHow long have you had these symptoms (acute/chronic)?:AcuteReason for exam?:pneumothoraxHistory of cancer?:uSurgeries, chemotherapy, or radiation?:uType of Exam?:InitialAdditional signs and symptoms?:. ANTIBODY IDENTIFICATION-FYAo n 02-15-2024 ANTIBODY IDENTIFICATION-FYA Normal [facility] Comment on above: Performed By: #### 4 6427_Anti-Fya ####[facility] [address] [place] [address] Nurys Oneill MD [id number] [facility] BASIC METABOLIC PANELon 01-27 Anion gap [Moles/Vol] 13 mmol/L Normal 10-20 [facility] Comment on above: Order Comment: [facility] has implemented the eGFR calculation approach that does not have a coefficient for race that conforms to the NKF-ASN Task Force Recommendations. Performed By: #### 4 6124 ####[facility] [address] [place] [address] Glenn Gudino M.D. [id number] Calcium [Mass/Vol] 7.8 mg/dL Low 8.4-10.2 [facility] Comment on above: Order Comment: [facility] has implemented the eGFR calculation approach that does not have a coefficient for race that conforms to the NKF-ASN Task Force Recommendations. Performed By: #### 4 6124 ####[facility] [address] [place] [address] Glenn Gudino M.D. [id number] Chloride [Moles/Vol] 99 mmol/L Normal 98-108 [facility] Comment on above: Order Comment: [facility] has implemented the eGFR calculation approach that does not have a coefficient for race that conforms to the NKF-ASN Task Force Recommendations. Performed By: #### 4 6124 ####[facility] [address] [place], [place] [address] Glenn Gudino M.D. [id number] Creatinine [Mass/Vol] 1.73 mg/dL High 0.60-1.10 [facility] Comment on above: Order Comment: [facility] has implemented the eGFR calculation approach that does not have a coefficient for race that conforms to the NKF-ASN Task Force Recommendations. Performed By: #### 4 6124 ####[facility] [address] [place], [place] [address] Glenn Gudino M.D. [id number] EGFR 33 mL/min/1.73 m2 Low >=60 [facility] Comment on above: Order Comment: [facility] has implemented the eGFR calculation approach that does not have a coefficient for race that conforms to the NKF-ASN Task Force Recommendations. Result Comment: Joi mated GFR was calculated using the 2020 CKD-EPI creatinine equation. Performed By: #### 4 6124 ####[facility] [address] [place], [place] [address] Glenn Gudino M.D. [id number] Glucose [Mass/Vol] 97 mg/dL Normal 65-99 [facility] Comment on above: Order Comment: [facility] has implemented the eGFR calculation approach that does not have a coefficient for race that conforms to the NKF-ASN Task Force Recommendations. Performed By: #### 4 6124 ####[facility] [address] [place], [place] [address] Glenn Gudino M.D. [id number] HCO3 (Bld) [Moles/Vol] 28 mmol/L Normal 21-32 [facility] Comment on above: Order Comment: [facility] has implemented the eGFR calculation approach that does not have a coefficient for race that conforms to the NKF-ASN Task Force Recommendations. Performed By: #### 4 6124 ####[facility] [address] [place], [place] [address] Glenn Gudino M.D. [id number] Potassium [Moles/Vol] 3.1 mmol/L Low 3.5-5.1 [facility] Comment on above: Order Comment: [facility] has implemented the eGFR calculation approach that does not have a coefficient for race that conforms to the NKF-ASN Task Force Recommendations. Result Comment: Slig htly Hemolyzed Performed By: #### 4 6124 ####[facility] [address] [place] [address] 13067 Glenn Gudino M.D. [id number] Sodium [Moles/Vol] 137 mmol/L Normal 135-145 [facility] Comment on above: Order Comment: [facility] has implemented the eGFR calculation approach that does not have a coefficient for race that conforms to the NKF-ASN Task Force Recommendations. Performed By: #### 4 6124 ####[facility] [address] [place] [address] 24605 Glenn Gudino M.D. [id number] Urea nitrogen [Mass/Vol] 46 mg/dL High 8-25 [facility] Comment on above: Order Comment: [facility] has implemented the eGFR calculation approach that does not have a coefficient for race that conforms to the NKF-ASN Task Force Recommendations. Performed By: #### 4 6124 ####[facility] [address] [place] [address]1139 Glenn Gudino M.D. [id number] Urea nitrogen/Creatinine [Mass ratio] 26.6 mg/mg High 10.0-20.0 [facility] Comment on above: Order Comment: [facility] has implemented the eGFR calculation approach that does not have a coefficient for race that conforms to the NKF-ASN Task Force Recommendations. Performed By: #### 4 6124 ####[facility] [address] [place] [address] 33653 Glenn Gudino M.D. [id number] CALCIUM, IONIZEDon 4 CALCIUM IONIZED 4.7 mg/dL Normal 4.5-5.3 [facility] Comment on above: Order Comment: Serum , non-CRRT source. Performed By: #### 4 5190 ####[facility] [address] [place] [address] 72315 Glenn Gudino M.D. [id number] CBCon 02-15-2024 AUTO NRBC 0.0 % Normal [facility] Comment on above: Performed By: #### 4 [id number] ####[facility] [address] [place] [address] Glenn Gudino M.D. [id number] AUTO NRBC ABS COUNT 0.00 K/mcL Normal 0.00-0.00 [facility] Comment on above: Performed By: #### 4 [id number] ####[facility] [address] [place] [address] Glenn Gudino M.D. [id number] Erythrocyte distribution width (RBC) [Ratio] 19.5 % High 11.6-14.8 [facility] Comment on above: Performed By: #### 4 [id number] ####[facility] [address] [place] [address] Glenn Gudino M.D. [id number] Hematocrit (Bld) [Volume fraction] 27.0 % Low 36.0-46.0 [facility] Comment on above: Performed By: #### 4 [id number] ####[facility] [address] [place], [place] [address]Karma Gudino M.D. [id number] Hemoglobin (Bld) [Mass/Vol] 8.4 g/dL Low 12.0-16.0 [facility] Comment on above: Performed By: #### 4 [id number] ####[facility] [address] [place], [place] [address] Glenn Gudino M.D. [id number] MCH (RBC) [Entitic mass] 29.1 pg Normal 26.0-34.0 [facility] Comment on above: Performed By: #### 4 [id number] ####[facility] [address] [place], [place] [address]Vivian LozaD. [id number] MCV (RBC) [Entitic vol] 93.4 fL Normal 80.0-100.0 [facility] Comment on above: Performed By: #### 4 [id number] ####[facility] [address] [place], [place] [address] Glenn Gudino M.D. [id number] MEAN CORPUSCULAR HEMOGLOBIN CONC 31.1 g/dL Normal 31.0-37.0 [facility] Comment on above: Performed By: #### 4 [id number] ####[facility] [address] [place], [place] [address] Glenn Gudino M.D. [id number] Platelet mean volume (Bld) [Entitic vol] 9.5 fL Normal 9.4-12.4 [facility] Comment on above: Performed By: #### 4 [id number] ####[facility] [address] [place] [address] Glenn Gudino M.D. [id number] Platelets (Bld) [#/Vol] 288 10*3/uL Normal 150-400 [facility] Comment on above: Performed By: #### 4 [id number] ####[facility] [address] [place], [place] [address] Glenn Gudino M.D. [id number] RBC (Bld) [#/Vol] 2.89 10*6/uL Low 4.00-5.20 [facility] Comment on above: Performed By: #### 4 [id number] ####[facility] [address] [place], [place] [address] Glenn Gudino M.D. [id number] WBC (Bld) [#/Vol] 16.69 10*3/uL High 4.50-11.00 [facility] Comment on above: Performed By: #### 4 [id number] ####[facility] [address] [place] [address] Glenn Gudino M.D. [id number] MAGNESIUM LEVELon 02-15-2024 Magnesium [Mass/Vol] 2.0 mg/dL Normal 1.6-2.4 [facility] Comment on above: Performed By: #### 4 6109 ####[facility] [address] [place] [address] Glenn Gudino M.D. [id number] POC GLUCOSE - [facility] 024 Glucose [Mass/Vol] 113 mg/dL High -[address] [place] [address] Comment on above: Performed By: #### 4 6937 ####[facility] [address] [place] [address] [id number] [facility] Glucose [Mass/Vol] 173 mg/dL High [address] [place] [address] Comment on above: Performed By: #### 4 6978 ####[facility] [address] [place] [address] [id number] [facility] Glucose [Mass/Vol] 82 mg/dL Normal 65-[address] [place] [address] Comment on above: Performed By: #### 4 8574 ####[facility] [address] [place] [address] [id number] [facility] Glucose [Mass/Vol] 50 mg/dL Low -[address] [place] [address] Comment on above: Performed By: #### 4 2234 ####[facility] [address] [place] [address] [id number] [facility] Glucose [Mass/Vol] 99 mg/dL Normal 65-[address] [place] [address] Comment on above: Performed By: #### 4 0226 ####[facility] [address] [place] [address] [id number] [facility] Glucose [Mass/Vol] 179 mg/dL High 65-[address] [place] [address] Comment on above: Performed By: #### 4 1278 ####[facility] [address] [place] [address] [id number] [facility] Glucose [Mass/Vol] 145 mg/dL High 65-99 [facility] Comment on above: Performed By: #### 4 6932 ####[facility] [address] [place] [address] [id number] [facility] FUNCTION PANELon 02-14 Albumin [Mass/Vol] 2.2 g/dL Low 3.2-5.2 [facility] Comment on above: Order Comment: [facility] has implemented the eGFR calculation approach that does not have a coefficient for race that conforms to the NKF-ASN Task Force Recommendations. Performed By: #### 4 6449 ####[facility] [address] [place] [address] Glenn Gudino M.D. [id number] Anion gap [Moles/Vol] 13 mmol/L Normal 10-20 [facility] Comment on above: Order Comment: [facility] has implemented the eGFR calculation approach that does not have a coefficient for race that conforms to the NKF-ASN Task Force Recommendations. Performed By: #### 4 6449 ####[facility] [address] [place] [address] Glenn Gudino M.D. [id number] Calcium [Mass/Vol] 7.9 mg/dL Low 8.4-10.2 [facility] Comment on above: Order Comment: [facility] has implemented the eGFR calculation approach that does not have a coefficient for race that conforms to the NKF-ASN Task Force Recommendations. Performed By: #### 4 6449 ####[facility] [address] [place], [place] [address] Glenn Gudino M.D. [id number] Chloride [Moles/Vol] 101 mmol/L Normal 98-108 [facility] Comment on above: Order Comment: [facility] has implemented the eGFR calculation approach that does not have a coefficient for race that conforms to the NKF-ASN Task Force Recommendations. Performed By: #### 4 6449 ####[facility] [address] [place] [address] 47417 Glenn Gudino M.D. [id number] Creatinine [Mass/Vol] 1.60 mg/dL High 0.60-1.10 [facility] Comment on above: Order Comment: [facility] has implemented the eGFR calculation approach that does not have a coefficient for race that conforms to the NKF-ASN Task Force Recommendations. Performed By: #### 4 6449 ####[facility] [address] [place] [address] 73369 lGenn Gudino M.D. [id number] EGFR 37 mL/min/1.73 m2 Low >=60 [facility] Comment on above: Order Comment: [facility] has implemented the eGFR calculation approach that does not have a coefficient for race that conforms to the NKF-ASN Task Force Recommendations. Result Comment: Joi mated GFR was calculated using the 2020 CKD-EPI creatinine equation. Performed By: #### 4 6449 ####[facility] [address] [place] [address] 28010 Glenn Gudino M.D. [id number] Glucose [Mass/Vol] 95 mg/dL Normal 65-99 [facility] Comment on above: Order Comment: [facility] has implemented the eGFR calculation approach that does not have a coefficient for race that conforms to the NKF-ASN Task Force Recommendations. Performed By: #### 4 6449 ####[facility] [address] [place] [address] 60[address] Glenn Gudino M.D. [id number] HCO3 (Bld) [Moles/Vol] 27 mmol/L Normal 21-32 [facility] Comment on above: Order Comment: [facility] has implemented the eGFR calculation approach that does not have a coefficient for race that conforms to the NKF-ASN Task Force Recommendations. Performed By: #### 4 6449 ####[facility] [address] [place], [place] [address] Glenn Gudino M.D. [id number] Phosphate [Mass/Vol] 2.1 mg/dL Low 2.8-4.1 [facility] Comment on above: Order Comment: [facility] has implemented the eGFR calculation approach that does not have a coefficient for race that conforms to the NKF-ASN Task Force Recommendations. Performed By: #### 4 6449 ####[facility] [address] [place] [address] Glenn Gudino M.D. [id number] Potassium [Moles/Vol] 2.8 mmol/L Low 3.5-5.1 [facility] Comment on above: Order Comment: [facility] has implemented the eGFR calculation approach that does not have a coefficient for race that conforms to the NKF-ASN Task Force Recommendations. Performed By: #### 4 6449 ####[facility] [address] [place] [address] Glenn Gudino M.D. [id number] Sodium [Moles/Vol] 138 mmol/L Normal 135-145 [facility] Comment on above: Order Comment: [facility] has implemented the eGFR calculation approach that does not have a coefficient for race that conforms to the NKF-ASN Task Force Recommendations. Performed By: #### 4 6449 ####[facility] [address] [place], [place] [address] Glenn Gudino M.D. [id number] Urea nitrogen [Mass/Vol] 44 mg/dL High 8-25 [facility] Comment on above: Order Comment: [facility] has implemented the eGFR calculation approach that does not have a coefficient for race that conforms to the NKF-ASN Task Force Recommendations. Performed By: #### 4 6449 ####[facility] [address] [place] [address] 33933 Glenn Gudino M.D. [id number] Urea nitrogen/Creatinine [Mass ratio] 27.5 mg/mg High 10.0-20.0 [facility] Comment on above: Order Comment: [facility] has implemented the eGFR calculation approach that does not have a coefficient for race that conforms to the NKF-ASN Task Force Recommendations. Performed By: #### 4 6449 ####[facility] [address] [place] [address] Glenn Gudino M.D. [id number] TYPE AND SCREENon 02-15-2024 TYPE AND SCREEN ABORH: O Positive AB SCREEN: Positive EXPIRATION DATE: 02/18/2024 23:59 EST Normal [facility] Comment on above: Performed By: #### 4 6619 ####[facility] [address] [place] [address] Nurys Oneill MD [id number] RMHTS XR CHEST PA/APon 02-15-2024 XR CHEST PA/AP [facility] Comment on above: Order Comment: Injur y/Trauma or Illness?:Illness/OtherHow long have you had these symptoms (acute/chronic)?:UnknownReason for exam?:Eval for pneumo s/p CT pullHistory of cancer?:uSurgeries, chemotherapy, or radiation?:uType of Exam?:UnknownAdditional signs and symptoms?:. Order Comment: Injur y/Trauma or Illness?:Illness/OtherHow long have you had these symptoms (acute/chronic)?:UnknownReason for exam?:chest tube palcement, pneumothoraxHistory of cancer?:uSurgeries, chemotherapy, or radiation?:uType of Exam?:Subsequent/Follow-upAdditional signs and symptoms?:/ CALCIUM, IONIZEDon CALCIUM IONIZED 4.9 mg/dL Normal 4.5-5.3 [facility] Comment on above: Order Comment: Serum , non-CRRT source. Performed By: #### 4 5190 ####[facility] [address] [place] [address] Glenn Gudino M.D. [id number] CBCon 02-14-2024 AUTO NRBC 0.0 % [facility] Comment on above: Performed By: #### 4 [id number] ####[facility] [address] [place], [place] [address] Glenn Gudino M.D. [id number] AUTO NRBC ABS COUNT 0.00 K/mcL Normal 0.00-0.00 [facility] Comment on above: Performed By: #### 4 [id number] ####[facility] [address] [place] [address] Glenn Gudino M.D. [id number] Erythrocyte distribution width (RBC) [Ratio] 20.9 % High 11.6-14.8 [facility] Comment on above: Performed By: #### 4 [id number] ####[facility] [address] [place] [address] Glenn Gudino M.D. [id number] Hematocrit (Bld) [Volume fraction] 23.1 % Low 36.0-46.0 [facility] Comment on above: Performed By: #### 4 [id number] ####[facility] [address] [place], [place] [address] Glenn Gudino M.D. [id number] Hemoglobin (Bld) [Mass/Vol] 6.9 g/dL Off scale low 12.0-16.0 [facility] Comment on above: Result Comment: Resu lts called and read back verified by:.[id number] TO [id number] @ 0621 Performed By: #### 4 [id number] ####[facility] [address] [place], [place] [address] Glenn Gudino M.D. [id number] MCH (RBC) [Entitic mass] 28.4 pg Normal 26.0-34.0 [facility] Comment on above: Performed By: #### 4 [id number] ####[facility] [address] [place], [place] [address] Glenn Gudino M.D. [id number] MCV (RBC) [Entitic vol] 95.1 fL Normal 80.0-100.0 [facility] Comment on above: Performed By: #### 4 [id number] ####[facility] [address] [place] [address] 55675 Glenn Gudino M.D. [id number] MEAN CORPUSCULAR HEMOGLOBIN CONC 29.9 g/dL Low 31.0-37.0 [facility] Comment on above: Performed By: #### 4 [id number] ####[facility] [address] [place] [address] 05353 Glenn Gudino M.D. [id number] Platelet mean volume (Bld) [Entitic vol] 9.8 fL Normal 9.4-12.4 [facility] Comment on above: Performed By: #### 4 [id number] ####[facility] [address] [place], [place] [address] Glenn Gudino M.D. [id number] Platelets (Bld) [#/Vol] 346 10*3/uL Normal 150-400 [facility] Comment on above: Performed By: #### 4 [id number] ####[facility] [address] [place] [address] 02993 Glenn Gudino M.D. [id number] RBC (Bld) [#/Vol] 2.43 10*6/uL Low 4.00-5.20 [facility] Comment on above: Performed By: #### 4 [id number] ####[facility] [address] [place] [address] 23348 Glenn Gudino M.D. [id number] WBC (Bld) [#/Vol] 21.68 10*3/uL High 4.50-11.00 [facility] Comment on above: Performed By: #### 4 [id number] ####[facility] [address] [place] [address] 37849 Glenn Gudino M.D. [id number] MAGNESIUM LEVELon 02-14-2024 Magnesium [Mass/Vol] 2.3 mg/dL Normal 1.6-2.4 [facility] Comment on above: Performed By: #### 4 6109 ####[facility] [address] [place] [address] Glenn Gudino M.D. [id number] POC GLUCOSE - [facility] 024 Glucose [Mass/Vol] 245 mg/dL [address] Comment on above: Performed By: #### 4 6932 ####[facility] [address] [place] [address] [id number] [facility] Glucose [Mass/Vol] 128 mg/dL [address] Comment on above: Performed By: #### 4 6932 ####[facility] [address] [place] [address] [id number] [facility] Glucose [Mass/Vol] 156 mg/dL [address] Comment on above: Performed By: #### 4 9814 ####[facility] [address] [place] [address] [id number] [facility] Glucose [Mass/Vol] 207 mg/dL [address] Comment on above: Performed By: #### 4 1232 ####[facility] [address] [place] [address] [id number] [facility] Glucose [Mass/Vol] 233 mg/dL [address] Comment on above: Performed By: #### 4 6705 ####[facility] [address] [place] [address] [id number] [facility] Glucose [Mass/Vol] 179 mg/dL [address] Comment on above: Performed By: #### 4 5399 ####[facility] [address] [place] [address] [id number] [facility] Glucose [Mass/Vol] 187 mg/dL [address] Comment on above: Performed By: #### 4 6932 ####[facility] [address] [place] [address] [id number] [facility] RENAL FUNCTION PANELon 02-13 Albumin [Mass/Vol] 2.2 g/dL Low 3.2-5.2 [facility] Comment on above: Order Comment: [facility] has implemented the eGFR calculation approach that does not have a coefficient for race that conforms to the NKF-ASN Task Force Recommendations. Performed By: #### 4 6449 ####[facility] [address] [place] [address] Glenn Gudino M.D. [id number] Anion gap [Moles/Vol] 18 mmol/L Normal 10-20 [facility] Comment on above: Order Comment: [facility] has implemented the eGFR calculation approach that does not have a coefficient for race that conforms to the NKF-ASN Task Force Recommendations. Performed By: #### 4 6449 ####[facility] [address] [place] [address] Glenn Gudino M.D. [id number] Calcium [Mass/Vol] 8.4 mg/dL Normal 8.4-10.2 [facility] Comment on above: Order Comment: [facility] has implemented the eGFR calculation approach that does not have a coefficient for race that conforms to the NKF-ASN Task Force Recommendations. Performed By: #### 4 6449 ####[facility] [address] [place] [address] Glenn Gudino M.D. [id number] Chloride [Moles/Vol] 102 mmol/L Normal 98-108 [facility] Comment on above: Order Comment: [facility] has implemented the eGFR calculation approach that does not have a coefficient for race that conforms to the NKF-ASN Task Force Recommendations. Performed By: #### 4 6449 ####[facility] [address] [place] [address] Glenn Gudino M.D. [id number] Creatinine [Mass/Vol] 2.41 mg/dL High 0.60-1.10 [facility] Comment on above: Order Comment: [facility] has implemented the eGFR calculation approach that does not have a coefficient for race that conforms to the NKF-ASN Task Force Recommendations. Performed By: #### 4 6449 ####[facility] [address] [place] [address] 79051 Glenn Gudino M.D. [id number] EGFR 22 mL/min/1.73 m2 Low >=60 [facility] Comment on above: Order Comment: [facility] has implemented the eGFR calculation approach that does not have a coefficient for race that conforms to the NKF-ASN Task Force Recommendations. Result Comment: Joi mated GFR was calculated using the 2020 CKD-EPI creatinine equation. Performed By: #### 4 6449 ####[facility] [address] [place], [place] [address] Glenn Gudino M.D. [id number] Glucose [Mass/Vol] 202 mg/dL High 65-99 [facility] Comment on above: Order Comment: [facility] has implemented the eGFR calculation approach that does not have a coefficient for race that conforms to the NKF-ASN Task Force Recommendations. Performed By: #### 4 6449 ####[facility] [address] [place] [address] 32827 Glenn Gudino M.D. [id number] HCO3 (Bld) [Moles/Vol] 22 mmol/L Normal 21-32 [facility] Comment on above: Order Comment: [facility] has implemented the eGFR calculation approach that does not have a coefficient for race that conforms to the NKF-ASN Task Force Recommendations. Performed By: #### 4 6449 ####[facility] [address] [place] [address] 24994 Glenn Gudino M.D. [id number] Phosphate [Mass/Vol] 4.7 mg/dL High 2.8-4.1 [facility] Comment on above: Order Comment: [facility] has implemented the eGFR calculation approach that does not have a coefficient for race that conforms to the NKF-ASN Task Force Recommendations. Performed By: #### 4 6449 ####[facility] [address] [place], [place] [address] Glenn Gudino M.D. [id number] Potassium [Moles/Vol] 4.0 mmol/L Normal 3.5-5.1 [facility] Comment on above: Order Comment: [facility] has implemented the eGFR calculation approach that does not have a coefficient for race that conforms to the NKF-ASN Task Force Recommendations. Performed By: #### 4 6449 ####[facility] [address] [place], [place] [address] Glenn Gudino M.D. [id number] Sodium [Moles/Vol] 138 mmol/L Normal 135-145 [facility] Comment on above: Order Comment: [facility] has implemented the eGFR calculation approach that does not have a coefficient for race that conforms to the NKF-ASN Task Force Recommendations. Performed By: #### 4 6449 ####[facility] [address] [place] [address] 29159 Glenn Gudino M.D. [id number] Urea nitrogen [Mass/Vol] 64 mg/dL High 8-25 [facility] Comment on above: Order Comment: [facility] has implemented the eGFR calculation approach that does not have a coefficient for race that conforms to the NKF-ASN Task Force Recommendations. Performed By: #### 4 6449 ####[facility] [address] [place], [place] [address] Glenn Gudino M.D. [id number] Urea nitrogen/Creatinine [Mass ratio] 26.6 mg/mg High 10.0-20.0 [facility] Comment on above: Order Comment: [facility] has implemented the eGFR calculation approach that does not have a coefficient for race that conforms to the NKF-ASN Task Force Recommendations. Performed By: #### 4 6449 ####[facility] [address] [place], [place] [address] Glenn Gudino M.D. [id number] XR CHEST PA/APon 02-14-2024 XR CHEST PA/AP Normal [facility] Comment on above: Order Comment: Injur y/Trauma or Illness?:Illness/OtherHow long have you had these symptoms (acute/chronic)?:UnknownReason for exam?:chest tube palcement, pneumothoraxHistory of cancer?:uSurgeries, chemotherapy, or radiation?:uType of Exam?:InitialAdditional signs and symptoms?:. CALCIUM, IONIZEDon CALCIUM IONIZED 4.8 mg/dL Normal 4.5-5.3 [facility] Comment on above: Order Comment: Serum , non-CRRT source. Performed By: #### 4 5190 ####[facility] [address] [place] [address] 88446 Glenn Gudino M.D. [id number] CBCon 02-13-2024 AUTO NRBC 0.0 % Normal [facility] Comment on above: Performed By: #### 4 [id number] ####[facility] [address] [place] [address] 71100 Glenn Gudino M.D. [id number] AUTO NRBC ABS COUNT 0.00 K/mcL Normal 0.00-0.00 [facility] Comment on above: Performed By: #### 4 5218 ####[facility] [address] [place] [address] 40213 Glenn Gudino M.D. [id number] Erythrocyte distribution width (RBC) [Ratio] 19.4 % High 11.6-14.8 [facility] Comment on above: Performed By: #### 4 5218 ####[facility] [address] [place], [place] [address] Glenn Gudino M.D. [id number] Hematocrit (Bld) [Volume fraction] 22.7 % Low 36.0-46.0 [facility] Comment on above: Performed By: #### 4 [id number] ####[facility] [address] [place] [address] Glenn Gudino M.D. [id number] Hemoglobin (Bld) [Mass/Vol] 7.0 g/dL Low 12.0-16.0 [facility] Comment on above: Performed By: #### 4 5218 ####[facility] [address] [place] [address] Glenn Gudino M.D. [id number] MCH (RBC) [Entitic mass] 28.6 pg Normal 26.0-34.0 [facility] Comment on above: Performed By: #### 4 [id number] ####[facility] [address] [place], [place] [address] Glenn Gudino M.D. [id number] MCV (RBC) [Entitic vol] 92.7 fL Normal 80.0-100.0 [facility] Comment on above: Performed By: #### 4 [id number] ####[facility] [address] [place] [address] Glenn Gudino M.D. [id number] MEAN CORPUSCULAR HEMOGLOBIN CONC 30.8 g/dL Low 31.0-37.0 [facility] Comment on above: Performed By: #### 4 5218 ####[facility] [address] [place], [place] [address] Glenn Gudino M.D. [id number] Platelet mean volume (Bld) [Entitic vol] 9.7 fL Normal 9.4-12.4 [facility] Comment on above: Performed By: #### 4 [id number] ####[facility] [address] [place] [address] Glenn Gudino M.D. [id number] Platelets (Bld) [#/Vol] 318 10*3/uL Normal 150-400 [facility] Comment on above: Performed By: #### 4 [id number] ####[facility] [address] [place], [place] [address] Glenn Gudino M.D. [id number] RBC (Bld) [#/Vol] 2.45 10*6/uL Low 4.00-5.20 [facility] Comment on above: Performed By: #### 4 5218 ####[facility] [address] [place], [place] [address] Glenn Gudino M.D. [id number] WBC (Bld) [#/Vol] 19.00 10*3/uL High 4.50-11.00 [facility] Comment on above: Result Comment: Left Shift.Peripheral smear reviewed manually Performed By: #### 4 [id number] ####[facility] [address] [place] [address] Glenn Gudino M.D. [id number] MAGNESIUM LEVELon 02-13-2024 Magnesium [Mass/Vol] 2.3 mg/dL Normal 1.6-2.4 [facility] Comment on above: Performed By: #### 4 6109 ####[facility] [address] [place], [place] [address] Glenn Gudino M.D. [id number] POC GLUCOSE - [facility] 024 Glucose [Mass/Vol] 202 mg/dL High -99 [facility] Comment on above: Performed By: #### 4 6918 ####[facility] [address] [place] [address] [id number] [facility] Glucose [Mass/Vol] 220 mg/dL High 65-99 [facility] Comment on above: Performed By: #### 4 2449 ####[facility] [address] [place] [address] [id number] [facility] Glucose [Mass/Vol] 224 mg/dL High 65- [facility] Comment on above: Performed By: #### 4 6932 ####[facility] [address] [place] [address] [id number] [facility] Glucose [Mass/Vol] 179 mg/dL High 65- [facility] Comment on above: Performed By: #### 4 6932 ####[facility] [address] [place] [address] [id number] [facility] Glucose [Mass/Vol] 169 mg/dL High -[address] [place] [address] Comment on above: Performed By: #### 4 6932 ####[facility] [address] [place] [address] [id number] [facility] RENAL FUNCTION PANELon 02-12 Albumin [Mass/Vol] 2.8 g/dL Low 3.2-5.2 [facility] Comment on above: Order Comment: [facility] has implemented the eGFR calculation approach that does not have a coefficient for race that conforms to the NKF-ASN Task Force Recommendations. Performed By: #### 4 6449 ####[facility] [address] [place] [address] Glenn Gudino M.D. [id number] Anion gap [Moles/Vol] 17 mmol/L Normal 10-20 [facility] Comment on above: Order Comment: [facility] has implemented the eGFR calculation approach that does not have a coefficient for race that conforms to the NKF-ASN Task Force Recommendations. Performed By: #### 4 6449 ####[facility] [address] [place], [place] [address] Glenn Gudino M.D. [id number] Calcium [Mass/Vol] 8.7 mg/dL Normal 8.4-10.2 [facility] Comment on above: Order Comment: [facility] has implemented the eGFR calculation approach that does not have a coefficient for race that conforms to the NKF-ASN Task Force Recommendations. Performed By: #### 4 6449 ####[facility] [address] [place] [address] 89966 Glenn Gudino M.D. [id number] Chloride [Moles/Vol] 101 mmol/L Normal 98-108 [facility] Comment on above: Order Comment: [facility] has implemented the eGFR calculation approach that does not have a coefficient for race that conforms to the NKF-ASN Task Force Recommendations. Performed By: #### 4 6449 ####[facility] [address] [place] [address] 90676 Glenn Gudino M.D. [id number] Creatinine [Mass/Vol] 1.98 mg/dL High 0.60-1.10 [facility] Comment on above: Order Comment: [facility] has implemented the eGFR calculation approach that does not have a coefficient for race that conforms to the NKF-ASN Task Force Recommendations. Performed By: #### 4 6449 ####[facility] [address] [place] [address] 79078 Glenn Gudino M.D. [id number] EGFR 28 mL/min/1.73 m2 Low >=60 [facility] Comment on above: Order Comment: [facility] has implemented the eGFR calculation approach that does not have a coefficient for race that conforms to the NKF-ASN Task Force Recommendations. Result Comment: Joi mated GFR was calculated using the 2020 CKD-EPI creatinine equation. Performed By: #### 4 6449 ####[facility] [address] [place] [address] 83688 Glenn Gudino M.D. [id number] Glucose [Mass/Vol] 170 mg/dL High 65-99 [facility] Comment on above: Order Comment: [facility] has implemented the eGFR calculation approach that does not have a coefficient for race that conforms to the NKF-ASN Task Force Recommendations. Performed By: #### 4 6449 ####[facility] [address] [place] [address] 15233 Glenn Gudino M.D. [id number] HCO3 (Bld) [Moles/Vol] 25 mmol/L Normal 21-32 [facility] Comment on above: Order Comment: [facility] has implemented the eGFR calculation approach that does not have a coefficient for race that conforms to the NKF-ASN Task Force Recommendations. Performed By: #### 4 6449 ####[facility] [address] [place], [place] [address] Glenn Gudino M.D. [id number] Phosphate [Mass/Vol] 4.0 mg/dL Normal 2.8-4.1 [facility] Comment on above: Order Comment: [facility] has implemented the eGFR calculation approach that does not have a coefficient for race that conforms to the NKF-ASN Task Force Recommendations. Performed By: #### 4 6449 ####[facility] [address] [place] [address] 59735 Glenn Gudino M.D. [id number] Potassium [Moles/Vol] 4.5 mmol/L Normal 3.5-5.1 [facility] Comment on above: Order Comment: [facility] has implemented the eGFR calculation approach that does not have a coefficient for race that conforms to the NKF-ASN Task Force Recommendations. Performed By: #### 4 6449 ####[facility] [address] [place] [address] 07709 Glenn Gudino M.D. [id number] Sodium [Moles/Vol] 138 mmol/L Normal 135-145 [facility] Comment on above: Order Comment: [facility] has implemented the eGFR calculation approach that does not have a coefficient for race that conforms to the NKF-ASN Task Force Recommendations. Performed By: #### 4 6449 ####[facility] [address] [place], [place] [address] Glenn Gudino M.D. [id number] Urea nitrogen [Mass/Vol] 48 mg/dL High 8-25 [facility] Comment on above: Order Comment: [facility] has implemented the eGFR calculation approach that does not have a coefficient for race that conforms to the NKF-ASN Task Force Recommendations. Performed By: #### 4 6449 ####[facility] [address] [place] [address] Glenn Gudino M.D. [id number] Urea nitrogen/Creatinine [Mass ratio] 24.2 mg/mg High 10.0-20.0 [facility] Comment on above: Order Comment: [facility] has implemented the eGFR calculation approach that does not have a coefficient for race that conforms to the NKF-ASN Task Force Recommendations. Performed By: #### 4 6449 ####[facility] [address] [place] [address] Glenn Gudino M.D. [id number] XR CHEST PA/APon 02-13-2024 XR CHEST PA/AP Normal [facility] Comment on above: Order Comment: Injur y/Trauma or Illness?:Illness/OtherHow long have you had these symptoms (acute/chronic)?:UnknownReason for exam?:chest tube palcement, pneumothoraxHistory of cancer?:uSurgeries, chemotherapy, or radiation?:uType of Exam?:OngoingAdditional signs and symptoms?:chest tube palcement, pneumothorax ANTIBODY IDENTIFICATION-Con 02-12-2024 ANTIBODY IDENTIFICATION-C Normal [facility] Comment on above: Performed By: #### 4 6427_Anti-C ####[facility] [address] [place] [address] Nurys Oneill MD [id number] [facility] CALCIUM, IONIZEDon CALCIUM IONIZED 4.7 mg/dL Normal 4.5-5.3 [facility] Comment on above: Order Comment: Serum , non-CRRT source. Performed By: #### 4 5190 ####[facility] [address] [place] [address] Glenn Gudino M.D. [id number] CBCon 02-12-2024 AUTO NRBC 0.1 % Normal [facility] Comment on above: Performed By: #### 4 [id number] ####[facility] [address] [place] [address] Glenn Gudino M.D. [id number] AUTO NRBC ABS COUNT 0.02 K/mcL High 0.00-0.00 [facility] Comment on above: Performed By: #### 4 [id number] ####[facility] [address] [place] [address] Glenn Gudino M.D. [id number] Erythrocyte distribution width (RBC) [Ratio] 19.2 % High 11.6-14.8 [facility] Comment on above: Performed By: #### 4 [id number] ####[facility] [address] [place] [address] Glenn Gudino M.D. [id number] Hematocrit (Bld) [Volume fraction] 23.6 % Low 36.0-46.0 [facility] Comment on above: Performed By: #### 4 [id number] ####[facility] [address] [place], [place] [address] Glenn Gudino M.D. [id number] Hemoglobin (Bld) [Mass/Vol] 7.3 g/dL Low 12.0-16.0 [facility] Comment on above: Performed By: #### 4 [id number] ####[facility] [address] [place], [place] [address] Glenn Gudino M.D. [id number] MCH (RBC) [Entitic mass] 28.6 pg Normal 26.0-34.0 [facility] Comment on above: Performed By: #### 4 [id number] ####[facility] [address] [place] [address] Glenn Gudino M.D. [id number] MCV (RBC) [Entitic vol] 92.5 fL Normal 80.0-100.0 [facility] Comment on above: Performed By: #### 4 [id number] ####[facility] [address] [place] [address] Glenn Gudino M.D. [id number] MEAN CORPUSCULAR HEMOGLOBIN CONC 30.9 g/dL Low 31.0-37.0 [facility] Comment on above: Performed By: #### 4 [id number] ####[facility] [address] [place] [address] Glenn Gudino M.D. [id number] Platelet mean volume (Bld) [Entitic vol] 9.7 fL Normal 9.4-12.4 [facility] Comment on above: Performed By: #### 4 [id number] ####[facility] [address] [place] [address] Glenn Gudino M.D. [id number] Platelets (Bld) [#/Vol] 317 10*3/uL Normal 150-400 [facility] Comment on above: Performed By: #### 4 [id number] ####[facility] [address] [place] [address] Glenn Gudino M.D. [id number] RBC (Bld) [#/Vol] 2.55 10*6/uL Low 4.00-5.20 [facility] Comment on above: Performed By: #### 4 [id number] ####[facility] [address] [place] [address] Glenn Gudino M.D. [id number] WBC (Bld) [#/Vol] 17.16 10*3/uL High 4.50-11.00 [facility] Comment on above: Performed By: #### 4 [id number] ####[facility] [address] [place] [address] Glenn Gudino M.D. [id number] COMPREHENSIVE METABOLIC PANE [place] 02-12-2024 Albumin [Mass/Vol] 2.6 g/dL Low 3.2-5.2 [facility] Comment on above: Order Comment: [facility] has implemented the eGFR calculation approach that does not have a coefficient for race that conforms to the NKF-ASN Task Force Recommendations. Performed By: #### 4 6126 ####[facility] [address] [place] [address] Glenn Gudino M.D. [id number] Performed By: #### 4 6449 ####[facility] [address] [place], [place] [address] Glenn Gudino M.D. [id number] ALP [Catalytic activity/Vol] 76 U/L Normal 40-150 [facility] Comment on above: Order Comment: [facility] has implemented the eGFR calculation approach that does not have a coefficient for race that conforms to the NKF-ASN Task Force Recommendations. Performed By: #### 4 6126 ####[facility] [address] [place] [address] 60953 Glenn Gudino M.D. [id number] ALT [Catalytic activity/Vol] 15 U/L Normal 0-35 U/L [facility] Comment on above: Order Comment: [facility] has implemented the eGFR calculation approach that does not have a coefficient for race that conforms to the NKF-ASN Task Force Recommendations. Performed By: #### 4 6126 ####[facility] [address] [place] [address] 77618 Glenn Gudino M.D. [id number] Anion gap [Moles/Vol] 20 mmol/L Normal 10-20 [facility] [facility] Comment on above: Order Comment: [facility] has implemented the eGFR calculation approach that does not have a coefficient for race that conforms to the NKF-ASN Task Force Recommendations. Performed By: #### 4 6126 ####[facility] [address] [place], [place] [address] Glenn Gudino M.D. [id number] Performed By: #### 4 6449 ####[facility] [address] [place], [place] [address] Glenn Gudino M.D. [id number] AST [Catalytic activity/Vol] 32 U/L Normal 0-35 U/L [facility] Comment on above: Order Comment: [facility] has implemented the eGFR calculation approach that does not have a coefficient for race that conforms to the NKF-ASN Task Force Recommendations. Performed By: #### 4 6126 ####[facility] [address] [place], [place] [address] Glenn Gudino M.D. [id number] Bilirubin [Mass/Vol] 0.4 mg/dL Normal 0.0-1.3 [facility] Comment on above: Order Comment: [facility] has implemented the eGFR calculation approach that does not have a coefficient for race that conforms to the NKF-ASN Task Force Recommendations. Performed By: #### 4 6126 ####[facility] [address] [place], [place] [address] Glenn Gudino M.D. [id number] Calcium [Mass/Vol] 8.3 mg/dL Low 8.4-10.2 [facility] Comment on above: Order Comment: [facility] has implemented the eGFR calculation approach that does not have a coefficient for race that conforms to the NKF-ASN Task Force Recommendations. Performed By: #### 4 6126 ####[facility] [address] [place], [place] [address] Glenn Gudino M.D. [id number] Performed By: #### 4 6449 ####[facility] [address] [place], [place] [address] Glenn Gudino M.D. [id number] Chloride [Moles/Vol] 106 mmol/L Normal 98-108 [facility] Comment on above: Order Comment: [facility] has implemented the eGFR calculation approach that does not have a coefficient for race that conforms to the NKF-ASN Task Force Recommendations. Performed By: #### 4 6126 ####[facility] [address] [place] [address] Glenn Gudino M.D. [id number] Performed By: #### 4 6449 ####[facility] [address] [place] [address] Glenn Gudino M.D. [id number] Creatinine [Mass/Vol] 2.81 mg/dL High 0.60-1.10 [facility] Comment on above: Order Comment: [facility] has implemented the eGFR calculation approach that does not have a coefficient for race that conforms to the NKF-ASN Task Force Recommendations. Performed By: #### 4 6126 ####[facility] [address] [place] [address] Glenn Gudino M.D. [id number] Performed By: #### 4 6449 ####[facility] [address] [place], [place] [address] Glenn Gduino M.D. [id number] EGFR 19 mL/min/1.73 m2 Low >=60 [facility] Comment on above: Order Comment: [facility] has implemented the eGFR calculation approach that does not have a coefficient for race that conforms to the NKF-ASN Task Force Recommendations. Result Comment: Joi mated GFR was calculated using the 2020 CKD-EPI creatinine equation. Performed By: #### 4 6126 ####[facility] [address] [place] [address] Glenn Gudino M.D. [id number] Result Comment: Joi mated GFR was calculated using the 2020 CKD-EPI creatinine equation.Estimated GFR was calculated using the 2020 CKD-EPI creatinine equation. Performed By: #### 4 6449 ####[facility] [address] [place], [place] [address] Glenn Gudino M.D. [id number] Glucose [Mass/Vol] 168 mg/dL High 65-99 [facility] Comment on above: Order Comment: [facility] has implemented the eGFR calculation approach that does not have a coefficient for race that conforms to the NKF-ASN Task Force Recommendations. Performed By: #### 4 6126 ####[facility] [address] [place] [address] Glenn Gudino M.D. [id number] Performed By: #### 4 6449 ####[facility] [address] [place] [address] Glenn Gudino M.D. [id number] HCO3 (Bld) [Moles/Vol] 19 mmol/L Low 21-32 [facility] Comment on above: Order Comment: [facility] has implemented the eGFR calculation approach that does not have a coefficient for race that conforms to the NKF-ASN Task Force Recommendations. Performed By: #### 4 6126 ####[facility] [address] [place] [address] Glenn Gudino M.D. [id number] Performed By: #### 4 6449 ####[facility] [address] [place], [place] [address] Glenn Gudino M.D. [id number] Potassium [Moles/Vol] 6.0 mmol/L High 3.5-5.1 [facility] Comment on above: Order Comment: [facility] has implemented the eGFR calculation approach that does not have a coefficient for race that conforms to the NKF-ASN Task Force Recommendations. Performed By: #### 4 6126 ####[facility] [address] [place], [place] [address] Glenn Gudino M.D. [id number] Performed By: #### 4 6449 ####[facility] [address] [place] [address] Glenn Gudino M.D. [id number] Protein [Mass/Vol] 6.1 g/dL Normal 6.0-8.0 [facility] Comment on above: Order Comment: [facility] has implemented the eGFR calculation approach that does not have a coefficient for race that conforms to the NKF-ASN Task Force Recommendations. Performed By: #### 4 6126 ####[facility] [address] [place] [address] Glenn Gudino M.D. [id number] Sodium [Moles/Vol] 139 mmol/L Normal 135-145 [facility] Comment on above: Order Comment: [facility] has implemented the eGFR calculation approach that does not have a coefficient for race that conforms to the NKF-ASN Task Force Recommendations. Performed By: #### 4 6126 ####[facility] [address] [place] [address] Glenn Gudino M.D. [id number] Performed By: #### 4 6449 ####[facility] [address] [place] [address] Glenn Gudino M.D. [id number] Urea nitrogen [Mass/Vol] 74 mg/dL High 8-25 [facility] Comment on above: Order Comment: [facility] has implemented the eGFR calculation approach that does not have a coefficient for race that conforms to the NKF-ASN Task Force Recommendations. Performed By: #### 4 6126 ####[facility] [address] [place], [place] [address] Glenn Gudino M.D. [id number] Performed By: #### 4 6449 ####[facility] [address] [place], [place] [address] Glenn Gudino M.D. [id number] Urea nitrogen/Creatinine [Mass ratio] 26.3 mg/mg High 10.0-20.0 [facility] Comment on above: Order Comment: [facility] has implemented the eGFR calculation approach that does not have a coefficient for race that conforms to the NKF-ASN Task Force Recommendations. Performed By: #### 4 6126 ####[facility] [address] [place], [place] [address] Glenn Gudino M.D. [id number] Performed By: #### 4 6449 ####[facility] [address] [place], [place] [address] Glenn Gudino M.D. [id number] HEPATITIS B CORE ANTIBODY, T OTALon 02-12-2024 HEPATITIS B CORE TOTAL ANTIBODY Negative Normal Negative [facility] Comment on above: Order Comment: Test performed using Adele ANNALISE immunoassay system Performed By: #### 4 5873 ####[facility] [address] [place] [address] Glenn Gudino M.D. [id number] HEPATITIS B E ANTIGENon 01-27 HEPATITIS BE ANTIGEN Negative Normal Negative [facility] Comment on above: Performed By: #### 4 4083 ####[facility] [address] [place] [address] Glenn Gudino M.D. [id number] HEPATITIS B SURFACE ANTIBODY on 02-12-2024 HEPATITIS B SURFACE ANTIBODY Negative Normal Negative [facility] Comment on above: Order Comment: Test performed using Adele ANNALISE immunoassay system Performed By: #### 4 5876 ####[facility] [address] [place] [address] Glenn Gudino M.D. [id number] HEPATITIS B SURFACE ANTIGENo n 02-12-2024 HEPATITIS B SURFACE ANTIGEN Negative Normal Negative [facility] Comment on above: Order Comment: Test performed using Adele ANNALISE immunoassay system Performed By: #### 4 2194 ####[facility] [address] [place] [address] Glenn Gudino M.D. [id number] HEPATITIS BE ANTIBODYon 01-27 HEPATITIS BE ANTIBODY INTERPRETATION Negative Normal Negative [facility] Comment on above: Order Comment: Test performed using Adele ANNALISE immunoassay system Performed By: #### L [id number] ####[facility] [address] [place] [address] Glenn Gudino M.D. [id number] MAGNESIUM LEVELon 02-12-2024 Magnesium [Mass/Vol] 2.6 mg/dL High 1.6-2.4 [facility] Comment on above: Performed By: #### 4 6109 ####[facility] [address] [place] [address] Glenn Gudino M.D. [id number] POC GLUCOSE - [facility] 024 Glucose [Mass/Vol] 127 mg/dL High -[address] [place] [address] Comment on above: Performed By: #### 4 5617 ####[facility] [address] [place] [address] [id number] [facility] Glucose [Mass/Vol] 185 mg/dL High [address] [place] [address] Comment on above: Performed By: #### 4 2571 ####[facility] [address] [place] [address] [id number] [facility] Glucose [Mass/Vol] 257 mg/dL High [address] [place] [address] Comment on above: Performed By: #### 4 3659 ####[facility] [address] [place] [address] [id number] [facility] Glucose [Mass/Vol] 75 mg/dL Normal [address] [place] [address] Comment on above: Performed By: #### 4 0691 ####[facility] [address] [place] [address] [id number] [facility] PREALBUMINon 02-12-2024 Prealbumin [Mass/Vol] 18.3 mg/dL Low 20.0-40.0 [facility] Comment on above: Performed By: #### 4 6355 ####[facility] [address] [place] [address] Glenn Gudino M.D. [id number] RENAL FUNCTION PANELon 02-11 Phosphate [Mass/Vol] 5.4 mg/dL High 2.8-4.1 [facility] Comment on above: Order Comment: [facility] has implemented the eGFR calculation approach that does not have a coefficient for race that conforms to the NKF-ASN Task Force Recommendations. Performed By: #### 4 6449 ####[facility] [address] [place] [address] Glenn Gudino M.D. [id number] TRIGLYCERIDESon 02-12-2024 Triglyceride [Mass/Vol] 150 mg/dL Normal 30-150 [facility] Comment on above: Result Comment: [facility] onal Cholesterol Education Program Guidelines: TriglycerideNormal: <150 mg/dLBorderline High: 150-199 mg/dLHigh: 200-499 mg/dLVery High: greater than or equal to 500 mg/dL Performed By: #### 4 6606 ####[facility] [address] [place] [address] Glenn Gudino M.D. [id number] TYPE AND SCREENon 02-12-2024 TYPE AND SCREEN ABORH: O Positive AB SCREEN: Positive EXPIRATION DATE: 02/15/2024 23:59 EST Normal [facility] Comment on above: Performed By: #### 4 6619 ####[facility] [address] [place] [address] Nurys Oneill MD [id number] RMHTS XR CHEST PA/APon 02-12-2024 XR CHEST PA/AP [facility] Comment on above: Order Comment: Injur y/Trauma or Illness?:Illness/OtherHow long have you had these symptoms (acute/chronic)?:AcuteReason for exam?:chest tube palcement, pneumothoraxHistory of cancer?:uSurgeries, chemotherapy, or radiation?:uType of Exam?:InitialAdditional signs and symptoms?:, CALCIUM, IONIZEDon CALCIUM IONIZED 4.7 mg/dL Normal 4.5-5.3 [facility] Comment on above: Order Comment: Serum , non-CRRT source. Performed By: #### 4 5190 ####[facility] [address] [place], [place] [address] Glenn Gudino M.D. [id number] CBCon 02-11-2024 AUTO NRBC 0.1 % Normal [facility] Comment on above: Performed By: #### 4 [id number] ####[facility] [address] [place] [address] Glenn Gudino M.D. [id number] AUTO NRBC ABS COUNT 0.02 K/mcL High 0.00-0.00 [facility] Comment on above: Performed By: #### 4 [id number] ####[facility] [address] [place], [place] [address] Glenn Gudino M.D. [id number] Erythrocyte distribution width (RBC) [Ratio] 19.1 % High 11.6-14.8 [facility] Comment on above: Performed By: #### 4 [id number] ####[facility] [address] [place], [place] [address] Glenn Gudino M.D. [id number] Hematocrit (Bld) [Volume fraction] 25.0 % Low 36.0-46.0 [facility] Comment on above: Performed By: #### 4 [id number] ####[facility] [address] [place], [place] [address] Glenn Gudino M.D. [id number] Hemoglobin (Bld) [Mass/Vol] 7.8 g/dL Low 12.0-16.0 [facility] Comment on above: Performed By: #### 4 [id number] ####[facility] [address] [place] [address] Glenn Gudino M.D. [id number] MCH (RBC) [Entitic mass] 28.4 pg Normal 26.0-34.0 [facility] Comment on above: Performed By: #### 4 [id number] ####[facility] [address] [place] [address] Glenn Gudino M.D. [id number] MCV (RBC) [Entitic vol] 90.9 fL Normal 80.0-100.0 [facility] Comment on above: Performed By: #### 4 [id number] ####[facility] [address] [place] [address] Glenn Gudino M.D. [id number] MEAN CORPUSCULAR HEMOGLOBIN CONC 31.2 g/dL Normal 31.0-37.0 [facility] Comment on above: Performed By: #### 4 [id number] ####[facility] [address] [place], [place] [address] Glenn Gudino M.D. [id number] Platelet mean volume (Bld) [Entitic vol] 9.6 fL Normal 9.4-12.4 [facility] Comment on above: Performed By: #### 4 [id number] ####[facility] [address] [place], [place] [address] Glenn Gudino M.D. [id number] Platelets (Bld) [#/Vol] 375 10*3/uL Normal 150-400 [facility] Comment on above: Performed By: #### 4 [id number] ####[facility] [address] [place], [place] [address] Glenn Gudino M.D. [id number] RBC (Bld) [#/Vol] 2.75 10*6/uL Low 4.00-5.20 [facility] Comment on above: Performed By: #### 4 [id number] ####[facility] [address] [place] [address] Glenn Gudino M.D. [id number] WBC (Bld) [#/Vol] 17.69 10*3/uL High 4.50-11.00 [facility] Comment on above: Performed By: #### 4 [id number] ####[facility] [address] [place] [address] Glenn Gudino M.D. [id number] MAGNESIUM LEVELon 02-11-2024 Magnesium [Mass/Vol] 2.4 mg/dL Normal 1.6-2.4 [facility] Comment on above: Performed By: #### 4 6109 ####[facility] [address] [place] [address] Glenn Gudino M.D. [id number] POC GLUCOSE - [facility] 024 Glucose [Mass/Vol] 194 mg/dL High [address] [place] [address] Comment on above: Performed By: #### 4 0930 ####[facility] [address] [place] [address] [id number] [facility] Glucose [Mass/Vol] 138 mg/dL [address] Comment on above: Performed By: #### 4 1533 ####[facility] [address] [place] [address] [id number] [facility] Glucose [Mass/Vol] 106 mg/dL High [address] [place] [address] Comment on above: Performed By: #### 4 6671 ####[facility] [address] [place] [address] [id number] [facility] Glucose [Mass/Vol] 134 mg/dL High [address] [place] [address] Comment on above: Performed By: #### 4 7970 ####[facility] [address] [place] [address] [id number] [facility] Glucose [Mass/Vol] 152 mg/dL High 65-99 [facility] Comment on above: Performed By: #### 4 6932 ####[facility] [address] [place] [address] [id number] [facility] Glucose [Mass/Vol] 171 mg/dL High - [facility] Comment on above: Performed By: #### 4 6932 ####[facility] [address] [place] [address] [id number] [facility] Glucose [Mass/Vol] 169 mg/dL High [facility] Comment on above: Performed By: #### 4 6932 ####[facility] [address] [place] [address] [id number] [facility] RENAL FUNCTION PANEL 02-10 Albumin [Mass/Vol] 2.3 g/dL Low 3.2-5.2 [facility] Comment on above: Order Comment: [facility] has implemented the eGFR calculation approach that does not have a coefficient for race that conforms to the NKF-ASN Task Force Recommendations. Performed By: #### 4 6449 ####[facility] [address] [place] [address] Glenn Gudino M.D. [id number] Anion gap [Moles/Vol] 17 mmol/L Normal 10-20 [facility] Comment on above: Order Comment: [facility] has implemented the eGFR calculation approach that does not have a coefficient for race that conforms to the NKF-ASN Task Force Recommendations. Performed By: #### 4 6449 ####[facility] [address] [place] [address] Glenn Gudino M.D. [id number] Calcium [Mass/Vol] 8.0 mg/dL Low 8.4-10.2 [facility] Comment on above: Order Comment: [facility] has implemented the eGFR calculation approach that does not have a coefficient for race that conforms to the NKF-ASN Task Force Recommendations. Performed By: #### 4 6449 ####[facility] [address] [place] [address] Glenn Gudino M.D. [id number] Chloride [Moles/Vol] 103 mmol/L Normal 98-108 [facility] Comment on above: Order Comment: [facility] has implemented the eGFR calculation approach that does not have a coefficient for race that conforms to the NKF-ASN Task Force Recommendations. Performed By: #### 4 6449 ####[facility] [address] [place], [place] [address] Glenn Gudino M.D. [id number] Creatinine [Mass/Vol] 2.46 mg/dL High 0.60-1.10 [facility] Comment on above: Order Comment: [facility] has implemented the eGFR calculation approach that does not have a coefficient for race that conforms to the NKF-ASN Task Force Recommendations. Performed By: #### 4 6449 ####[facility] [address] [place], [place] [address] Glenn Gudino M.D. [id number] EGFR 22 mL/min/1.73 m2 Low >=60 [facility] Comment on above: Order Comment: [facility] has implemented the eGFR calculation approach that does not have a coefficient for race that conforms to the NKF-ASN Task Force Recommendations. Result Comment: Joi mated GFR was calculated using the 2020 CKD-EPI creatinine equation. Performed By: #### 4 6449 ####[facility] [address] [place] [address] Glenn Gudino M.D. [id number] Glucose [Mass/Vol] 187 mg/dL High 65-99 [facility] Comment on above: Order Comment: [facility] has implemented the eGFR calculation approach that does not have a coefficient for race that conforms to the NKF-ASN Task Force Recommendations. Performed By: #### 4 6449 ####[facility] [address] [place], [place] [address] Glenn Gudino M.D. [id number] HCO3 (Bld) [Moles/Vol] 22 mmol/L Normal 21-32 [facility] Comment on above: Order Comment: [facility] has implemented the eGFR calculation approach that does not have a coefficient for race that conforms to the NKF-ASN Task Force Recommendations. Performed By: #### 4 6449 ####[facility] [address] [place], [place] [address] Glenn Gudino M.D. [id number] Phosphate [Mass/Vol] 5.2 mg/dL High 2.8-4.1 [facility] Comment on above: Order Comment: [facility] has implemented the eGFR calculation approach that does not have a coefficient for race that conforms to the NKF-ASN Task Force Recommendations. Performed By: #### 4 6449 ####[facility] [address] [place] [address] Glenn Gudino M.D. [id number] Potassium [Moles/Vol] 5.4 mmol/L High 3.5-5.1 [facility] Comment on above: Order Comment: [facility] has implemented the eGFR calculation approach that does not have a coefficient for race that conforms to the NKF-ASN Task Force Recommendations. Performed By: #### 4 6449 ####[facility] [address] [place], [place] [address] Glenn Gudino M.D. [id number] Sodium [Moles/Vol] 137 mmol/L Normal 135-145 [facility] Comment on above: Order Comment: [facility] has implemented the eGFR calculation approach that does not have a coefficient for race that conforms to the NKF-ASN Task Force Recommendations. Performed By: #### 4 6449 ####[facility] [address] [place], [place] [address] Gelnn Gudino M.D. [id number] Urea nitrogen [Mass/Vol] 57 mg/dL High 8-25 [facility] Comment on above: Order Comment: [facility] has implemented the eGFR calculation approach that does not have a coefficient for race that conforms to the NKF-ASN Task Force Recommendations. Performed By: #### 4 6449 ####[facility] [address] [place], [place] [address] Glenn Gudino M.D. [id number] Urea nitrogen/Creatinine [Mass ratio] 23.2 mg/mg High 10.0-20.0 [facility] Comment on above: Order Comment: [facility] has implemented the eGFR calculation approach that does not have a coefficient for race that conforms to the NKF-ASN Task Force Recommendations. Performed By: #### 4 6449 ####[facility] [address] [place], [place] [address] Glenn Gudino M.D. [id number] XR CHEST PA/APon 02-11-2024 XR CHEST PA/AP Normal [facility] Comment on above: Order Comment: Injur y/Trauma or Illness?:Illness/OtherHow long have you had these symptoms (acute/chronic)?:AcuteReason for exam?:chest tube palcement, pneumothoraxHistory of cancer?:uSurgeries, chemotherapy, or radiation?:uType of Exam?:InitialAdditional signs and symptoms?:. CALCIUM, IONIZEDon CALCIUM IONIZED 4.7 mg/dL Normal 4.5-5.3 [facility] Comment on above: Order Comment: Serum , non-CRRT source. Performed By: #### 4 5190 ####[facility] [address] [place] [address] Glenn Gudino M.D. [id number] CBCon 02-10-2024 AUTO NRBC 0.0 % Normal [facility] Comment on above: Performed By: #### 4 [id number] ####[facility] [address] [place], [place] [address] Glenn Gudino M.D. [id number] AUTO NRBC ABS COUNT 0.00 K/mcL Normal 0.00-0.00 [facility] Comment on above: Performed By: #### 4 [id number] ####[facility] [address] [place], [place] [address] Glenn Gudino M.D. [id number] Erythrocyte distribution width (RBC) [Ratio] 19.4 % High 11.6-14.8 [facility] Comment on above: Performed By: #### 4 [id number] ####[facility] [address] [place] [address] Glenn Gudino M.D. [id number] Hematocrit (Bld) [Volume fraction] 22.9 % Low 36.0-46.0 [facility] Comment on above: Performed By: #### 4 [id number] ####[facility] [address] [place] [address] Glenn Gudino M.D. [id number] Hemoglobin (Bld) [Mass/Vol] 7.4 g/dL Low 12.0-16.0 [facility] Comment on above: Performed By: #### 4 [id number] ####[facility] [address] [place] [address] Glenn Gudino M.D. [id number] MCH (RBC) [Entitic mass] 29.6 pg Normal 26.0-34.0 [facility] Comment on above: Performed By: #### 4 [id number] ####[facility] [address] [place], [place] [address] Glenn Gudino M.D. [id number] MCV (RBC) [Entitic vol] 91.6 fL Normal 80.0-100.0 [facility] Comment on above: Performed By: #### 4 [id number] ####[facility] [address] [place], [place] [address] Glenn Gudino M.D. [id number] MEAN CORPUSCULAR HEMOGLOBIN CONC 32.3 g/dL Normal 31.0-37.0 [facility] Comment on above: Performed By: #### 4 [id number] ####[facility] [address] [place] [address] Glenn Gudino M.D. [id number] Platelet mean volume (Bld) [Entitic vol] 9.8 fL Normal 9.4-12.4 [facility] Comment on above: Performed By: #### 4 [id number] ####[facility] [address] [place] [address] Glenn Gudino M.D. [id number] Platelets (Bld) [#/Vol] 323 10*3/uL Normal 150-400 [facility] Comment on above: Performed By: #### 4 [id number] ####[facility] [address] [place], [place] [address] Glenn Gudino M.D. [id number] RBC (Bld) [#/Vol] 2.50 10*6/uL Low 4.00-5.20 [facility] Comment on above: Performed By: #### 4 [id number] ####[facility] [address] [place] [address] Glenn Gudino M.D. [id number] WBC (Bld) [#/Vol] 16.68 10*3/uL High 4.50-11.00 [facility] Comment on above: Performed By: #### 4 [id number] ####[facility] [address] [place] [address] Glenn Gudino M.D. [id number] MAGNESIUM LEVELon 02-10-2024 Magnesium [Mass/Vol] 2.2 mg/dL Normal 1.6-2.4 [facility] Comment on above: Performed By: #### 4 6109 ####[facility] [address] [place], [place] [address] Glenn Gudino M.D. [id number] POC GLUCOSE [facility] 024 Glucose [Mass/Vol] 197 mg/dL High [address] [place] [address] Comment on above: Performed By: #### 4 6932 ####[facility] [address] [place] [address] [id number] RMHPOC Glucose [Mass/Vol] 181 mg/dL High [address] [place] [address] Comment on above: Performed By: #### 4 6932 ####[facility] [address] [place] [address] [id number] [facility]OC Glucose [Mass/Vol] 161 mg/dL High [facility] Comment on above: Performed By: #### 4 6932 ####[facility] [address] [place] [address] [id number] RM[facility]OC Glucose [Mass/Vol] 173 mg/dL High [address] [place] [address] Comment on above: Performed By: #### 4 6932 ####[facility] [address] [place] [address] [id number] [facility] Glucose [Mass/Vol] 198 mg/dL High [address] [place] [address] Comment on above: Performed By: #### 4 6932 ####[facility] [address] [place] [address] [id number] [facility] Glucose [Mass/Vol] 178 mg/dL High [address] [place] [address] Comment on above: Performed By: #### 4 6932 ####[facility] [address] [place] [address] [id number] [facility] RENAL FUNCTION PANELon 02-09 Albumin [Mass/Vol] 2.3 g/dL Low 3.2-5.2 [facility] Comment on above: Order Comment: [facility] has implemented the eGFR calculation approach that does not have a coefficient for race that conforms to the NKF-ASN Task Force Recommendations. Performed By: #### 4 6449 ####[facility] [address] [place] [address] Glenn Gudino M.D. [id number] Anion gap [Moles/Vol] 16 mmol/L Normal 10-20 [facility] Comment on above: Order Comment: [facility] has implemented the eGFR calculation approach that does not have a coefficient for race that conforms to the NKF-ASN Task Force Recommendations. Performed By: #### 4 6449 ####[facility] [address] [place] [address] Glenn Gudino M.D. [id number] Calcium [Mass/Vol] 7.6 mg/dL Low 8.4-10.2 [facility] Comment on above: Order Comment: [facility] has implemented the eGFR calculation approach that does not have a coefficient for race that conforms to the NKF-ASN Task Force Recommendations. Performed By: #### 4 6449 ####[facility] [address] [place], [place] [address] Glenn Gudino M.D. [id number] Chloride [Moles/Vol] 101 mmol/L Normal 98-108 [facility] Comment on above: Order Comment: [facility] has implemented the eGFR calculation approach that does not have a coefficient for race that conforms to the NKF-ASN Task Force Recommendations. Performed By: #### 4 6449 ####[facility] [address] [place] [address] Glenn Gudino M.D. [id number] Creatinine [Mass/Vol] 2.03 mg/dL High 0.60-1.10 [facility] Comment on above: Order Comment: [facility] has implemented the eGFR calculation approach that does not have a coefficient for race that conforms to the NKF-ASN Task Force Recommendations. Performed By: #### 4 6449 ####[facility] [address] [place] [address] Glenn Gudino M.D. [id number] EGFR 27 mL/min/1.73 m2 Low >=60 [facility] Comment on above: Order Comment: [facility] has implemented the eGFR calculation approach that does not have a coefficient for race that conforms to the NKF-ASN Task Force Recommendations. Result Comment: Joi mated GFR was calculated using the 2020 CKD-EPI creatinine equation. Performed By: #### 4 6449 ####[facility] [address] [place] [address] Glenn Gudino M.D. [id number] Glucose [Mass/Vol] 315 mg/dL High 65-99 [facility] Comment on above: Order Comment: [facility] has implemented the eGFR calculation approach that does not have a coefficient for race that conforms to the NKF-ASN Task Force Recommendations. Performed By: #### 4 6449 ####[facility] [address] [place], [place] [address] Glenn Gudino M.D. [id number] HCO3 (Bld) [Moles/Vol] 25 mmol/L Normal 21-32 [facility] Comment on above: Order Comment: [facility] has implemented the eGFR calculation approach that does not have a coefficient for race that conforms to the NKF-ASN Task Force Recommendations. Performed By: #### 4 6449 ####[facility] [address] [place] [address] Glenn Gudino M.D. [id number] Phosphate [Mass/Vol] 4.9 mg/dL High 2.8-4.1 [facility] Comment on above: Order Comment: [facility] has implemented the eGFR calculation approach that does not have a coefficient for race that conforms to the NKF-ASN Task Force Recommendations. Performed By: #### 4 6449 ####[facility] [address] [place] [address] Glenn Gudino M.D. [id number] Potassium [Moles/Vol] 5.6 mmol/L High 3.5-5.1 [facility] Comment on above: Order Comment: [facility] has implemented the eGFR calculation approach that does not have a coefficient for race that conforms to the NKF-ASN Task Force Recommendations. Performed By: #### 4 6449 ####[facility] [address] [place] [address] Glenn Gudino M.D. [id number] Sodium [Moles/Vol] 136 mmol/L Normal 135-145 [facility] Comment on above: Order Comment: [facility] has implemented the eGFR calculation approach that does not have a coefficient for race that conforms to the NKF-ASN Task Force Recommendations. Performed By: #### 4 6449 ####[facility] [address] [place], [place] [address] Glenn Gudino M.D. [id number] Urea nitrogen [Mass/Vol] 40 mg/dL High 8-25 [facility] Comment on above: Order Comment: [facility] has implemented the eGFR calculation approach that does not have a coefficient for race that conforms to the NKF-ASN Task Force Recommendations. Performed By: #### 4 6449 ####[facility] [address] [place] [address] Glenn Gudino M.D. [id number] Urea nitrogen/Creatinine [Mass ratio] 19.7 mg/mg Normal 10.0-20.0 [facility] Comment on above: Order Comment: [facility] has implemented the eGFR calculation approach that does not have a coefficient for race that conforms to the NKF-ASN Task Force Recommendations. Performed By: #### 4 6449 ####[facility] [address] [place] [address] Glenn Gudino M.D. [id number] XR CHEST PA/APon 02-10-2024 XR CHEST PA/AP Normal [facility] Comment on above: Order Comment: Injur y/Trauma or Illness?:Illness/OtherHow long have you had these symptoms (acute/chronic)?:AcuteReason for exam?:chest tube palcement, pneumothoraxHistory of cancer?:uSurgeries, chemotherapy, or radiation?:uType of Exam?:InitialAdditional signs and symptoms?:. ANTIBODY IDENTIFICATION-Con 02-09-2024 ANTIBODY IDENTIFICATION-C Normal [facility] Comment on above: Performed By: #### 4 6427_Anti-C ####[facility] [address] [place] [address] Nurys Oneill MD [id number] [facility] CALCIUM, IONIZEDon CALCIUM IONIZED 4.5 mg/dL Normal 4.5-5.3 [facility] Comment on above: Order Comment: Serum , non-CRRT source. Performed By: #### 4 5190 ####[facility] [address] [place] [address] Glenn Gudino M.D. [id number] CBCon 02-09-2024 AUTO NRBC 0.0 % Normal [facility] Comment on above: Performed By: #### 4 [id number] ####[facility] [address] [place] [address] Glenn Gudino M.D. [id number] AUTO NRBC ABS COUNT 0.00 K/mcL Normal 0.00-0.00 [facility] Comment on above: Performed By: #### 4 [id number] ####[facility] [address] [place] [address] Glenn Gudino M.D. [id number] Erythrocyte distribution width (RBC) [Ratio] 19.5 % High 11.6-14.8 [facility] Comment on above: Performed By: #### 4 [id number] ####[facility] [address] [place], [place] [address] Glenn Gudino M.D. [id number] Hematocrit (Bld) [Volume fraction] 23.4 % Low 36.0-46.0 [facility] Comment on above: Performed By: #### 4 [id number] ####[facility] [address] [place], [place] [address] Glenn Gudino M.D. [id number] Hemoglobin (Bld) [Mass/Vol] 7.5 g/dL Low 12.0-16.0 [facility] Comment on above: Performed By: #### 4 [id number] ####[facility] [address] [place] [address] Glenn Gudino M.D. [id number] MCH (RBC) [Entitic mass] 29.2 pg Normal 26.0-34.0 [facility] Comment on above: Performed By: #### 4 [id number] ####[facility] [address] [place] [address] Glenn Gudino M.D. [id number] MCV (RBC) [Entitic vol] 91.1 fL Normal 80.0-100.0 [facility] Comment on above: Performed By: #### 4 [id number] ####[facility] [address] [place] [address] Glenn Gudino M.D. [id number] MEAN CORPUSCULAR HEMOGLOBIN CONC 32.1 g/dL Normal 31.0-37.0 [facility] Comment on above: Performed By: #### 4 [id number] ####[facility] [address] [place], [place] [address] Glenn Gudino M.D. [id number] Platelet mean volume (Bld) [Entitic vol] 9.6 fL Normal 9.4-12.4 [facility] Comment on above: Performed By: #### 4 [id number] ####[facility] [address] [place], [place] [address] Glenn Gudino M.D. [id number] Platelets (Bld) [#/Vol] 281 10*3/uL Normal 150-400 [facility] Comment on above: Performed By: #### 4 1218 ####[facility] [address] [place] [address] Glenn Gudino M.D. [id number] RBC (Bld) [#/Vol] 2.57 10*6/uL Low 4.00-5.20 [facility] Comment on above: Performed By: #### 4 [id number] ####[facility] [address] [place], [place] [address] Glenn Gudino M.D. [id number] WBC (Bld) [#/Vol] 11.20 10*3/uL High 4.50-11.00 [facility] Comment on above: Performed By: #### 4 [id number] ####[facility] [address] [place] [address] Glenn Gudino M.D. [id number] MAGNESIUM LEVELon 02-09-2024 Magnesium [Mass/Vol] 2.0 mg/dL Normal 1.6-2.4 [facility] Comment on above: Performed By: #### 4 6109 ####[facility] [address] [place] [address] Glenn Gudino M.D. [id number] POC GLUCOSE [facility] 024 Glucose [Mass/Vol] 198 mg/dL [address] Comment on above: Performed By: #### 4 2296 ####[facility] [address] [place] [address] [id number] RM[facility] Glucose [Mass/Vol] 168 mg/dL [address] Comment on above: Performed By: #### 4 8319 ####[facility] [address] [place] [address] [id number] [facility] Glucose [Mass/Vol] 246 mg/dL [address] Comment on above: Performed By: #### 4 9337 ####[facility] [address] [place] [address] [id number] RMHPOC Glucose [Mass/Vol] 260 mg/dL High 65-99 [facility] Comment on above: Performed By: #### 4 6932 ####[facility] [address] [place] [address] [id number] RMHPOC Glucose [Mass/Vol] 255 mg/dL High 65-99 [facility] Comment on above: Performed By: #### 4 6932 ####[facility] [address] [place] [address] [id number] RM[facility]OC Glucose [Mass/Vol] 217 mg/dL High 65- [facility] Comment on above: Performed By: #### 4 6932 ####[facility] [address] [place] [address] [id number] [facility] RENAL FUNCTION PANELon 02-08 Albumin [Mass/Vol] 2.1 g/dL Low 3.2-5.2 [facility] Comment on above: Order Comment: [facility] has implemented the eGFR calculation approach that does not have a coefficient for race that conforms to the NKF-ASN Task Force Recommendations. Performed By: #### 4 6449 ####[facility] [address] [place], [place] [address] Glenn Gudino M.D. [id number] Anion gap [Moles/Vol] 16 mmol/L Normal 10-20 [facility] Comment on above: Order Comment: [facility] has implemented the eGFR calculation approach that does not have a coefficient for race that conforms to the NKF-ASN Task Force Recommendations. Performed By: #### 4 6449 ####[facility] [address] [place] [address] 23791 Glenn Gudino M.D. [id number] Calcium [Mass/Vol] 7.6 mg/dL Low 8.4-10.2 [facility] Comment on above: Order Comment: [facility] has implemented the eGFR calculation approach that does not have a coefficient for race that conforms to the NKF-ASN Task Force Recommendations. Performed By: #### 4 6449 ####[facility] [address] [place] [address] Glenn Gudino M.D. [id number] Chloride [Moles/Vol] 103 mmol/L Normal 98-108 [facility] Comment on above: Order Comment: [facility] has implemented the eGFR calculation approach that does not have a coefficient for race that conforms to the NKF-ASN Task Force Recommendations. Performed By: #### 4 6449 ####[facility] [address] [place] [address] Glenn Gudino M.D. [id number] Creatinine [Mass/Vol] 2.58 mg/dL High 0.60-1.10 [facility] Comment on above: Order Comment: [facility] has implemented the eGFR calculation approach that does not have a coefficient for race that conforms to the NKF-ASN Task Force Recommendations. Performed By: #### 4 6449 ####[facility] [address] [place] [address] Glenn Gudino M.D. [id number] EGFR 21 mL/min/1.73 m2 Low >=60 [facility] Comment on above: Order Comment: [facility] has implemented the eGFR calculation approach that does not have a coefficient for race that conforms to the NKF-ASN Task Force Recommendations. Result Comment: Joi mated GFR was calculated using the 2020 CKD-EPI creatinine equation. Performed By: #### 4 6449 ####[facility] [address] [place] [address] Glenn Gudino M.D. [id number] Glucose [Mass/Vol] 233 mg/dL High 65-99 [facility] Comment on above: Order Comment: [facility] has implemented the eGFR calculation approach that does not have a coefficient for race that conforms to the NKF-ASN Task Force Recommendations. Performed By: #### 4 6449 ####[facility] [address] [place] [address] Glenn Gudino M.D. [id number] HCO3 (Bld) [Moles/Vol] 22 mmol/L Normal 21-32 [facility] Comment on above: Order Comment: [facility] has implemented the eGFR calculation approach that does not have a coefficient for race that conforms to the NKF-ASN Task Force Recommendations. Performed By: #### 4 6449 ####[facility] [address] [place] [address] Glenn Gudino M.D. [id number] Phosphate [Mass/Vol] 4.4 mg/dL High 2.8-4.1 [facility] Comment on above: Order Comment: [facility] has implemented the eGFR calculation approach that does not have a coefficient for race that conforms to the NKF-ASN Task Force Recommendations. Performed By: #### 4 6449 ####[facility] [address] [place] [address] Glenn Gudino M.D. [id number] Potassium [Moles/Vol] 4.8 mmol/L Normal 3.5-5.1 [facility] Comment on above: Order Comment: [facility] has implemented the eGFR calculation approach that does not have a coefficient for race that conforms to the NKF-ASN Task Force Recommendations. Performed By: #### 4 6449 ####[facility] [address] [place], [place] [address] Glenn Gudino M.D. [id number] Sodium [Moles/Vol] 136 mmol/L Normal 135-145 [facility] Comment on above: Order Comment: [facility] has implemented the eGFR calculation approach that does not have a coefficient for race that conforms to the NKF-ASN Task Force Recommendations. Performed By: #### 4 6449 ####[facility] [address] [place] [address] Glenn Gudino M.D. [id number] Urea nitrogen [Mass/Vol] 52 mg/dL High 8-25 [facility] Comment on above: Order Comment: [facility] has implemented the eGFR calculation approach that does not have a coefficient for race that conforms to the NKF-ASN Task Force Recommendations. Performed By: #### 4 6449 ####[facility] [address] [place] [address] Glenn Gudino M.D. [id number] Urea nitrogen/Creatinine [Mass ratio] 20.2 mg/mg High 10.0-20.0 [facility] Comment on above: Order Comment: [facility] has implemented the eGFR calculation approach that does not have a coefficient for race that conforms to the NKF-ASN Task Force Recommendations. Performed By: #### 4 6449 ####[facility] [address] [place] [address] Glenn Gudino M.D. [id number] TYPE AND SCREENon 02-09-2024 TYPE AND SCREEN ABORH: O Positive AB SCREEN: Positive EXPIRATION DATE: 02/12/2024 23:59 EST Normal [facility] Comment on above: Performed By: #### 4 6619 ####[facility] [address] [place] [address] Nurys Oneill MD [id number] RMHTS XR CHEST PA/APon 02-09-2024 XR CHEST PA/AP Normal [facility] Comment on above: Order Comment: Injur y/Trauma or Illness?:Illness/OtherHow long have you had these symptoms (acute/chronic)?:UnknownReason for exam?:chest tube palcement, pneumothoraxHistory of cancer?:uSurgeries, chemotherapy, or radiation?:uType of Exam?:InitialAdditional signs and symptoms?:. CALCIUM, IONIZEDon 4 CALCIUM IONIZED 4.5 mg/dL Normal 4.5-5.3 [facility] Comment on above: Order Comment: Serum , non-CRRT source. Performed By: #### 4 5190 ####[facility] [address] [place] [address] Glenn Gudino M.D. [id number] CBCon 02-08-2024 AUTO NRBC 0.0 % Normal [facility] Comment on above: Performed By: #### 4 [id number] ####[facility] [address] [place], [place] [address] Glenn Gudino M.D. [id number] AUTO NRBC ABS COUNT 0.00 K/mcL Normal 0.00-0.00 [facility] Comment on above: Performed By: #### 4 [id number] ####[facility] [address] [place] [address] Glenn Gudino M.D. [id number] Erythrocyte distribution width (RBC) [Ratio] 19.3 % High 11.6-14.8 [facility] Comment on above: Performed By: #### 4 [id number] ####[facility] [address] [place] [address] Glenn Gudino M.D. [id number] Hematocrit (Bld) [Volume fraction] 22.2 % Low 36.0-46.0 [facility] Comment on above: Performed By: #### 4 [id number] ####[facility] [address] [place], [place] [address] Glenn Gudino M.D. [id number] Hemoglobin (Bld) [Mass/Vol] 7.0 g/dL Low 12.0-16.0 [facility] Comment on above: Performed By: #### 4 [id number] ####[facility] [address] [place], [place] [address] Glenn Gudino M.D. [id number] MCH (RBC) [Entitic mass] 29.2 pg Normal 26.0-34.0 [facility] Comment on above: Performed By: #### 4 [id number] ####[facility] [address] [place] [address] Glenn Gudino M.D. [id number] MCV (RBC) [Entitic vol] 92.5 fL Normal 80.0-100.0 [facility] Comment on above: Performed By: #### 4 [id number] ####[facility] [address] [place], [place] [address] Glenn Gudino M.D. [id number] MEAN CORPUSCULAR HEMOGLOBIN CONC 31.5 g/dL Normal 31.0-37.0 [facility] Comment on above: Performed By: #### 4 [id number] ####[facility] [address] [place] [address] Glenn Gudino M.D. [id number] Platelet mean volume (Bld) [Entitic vol] 9.7 fL Normal 9.4-12.4 [facility] Comment on above: Performed By: #### 4 [id number] ####[facility] [address] [place] [address] Glenn Gudino M.D. [id number] Platelets (Bld) [#/Vol] 239 10*3/uL Normal 150-400 [facility] Comment on above: Performed By: #### 4 [id number] ####[facility] [address] [place], [place] [address] Glenn Gudino M.D. [id number] RBC (Bld) [#/Vol] 2.40 10*6/uL Low 4.00-5.20 [facility] Comment on above: Performed By: #### 4 [id number] ####[facility] [address] [place], [place] [address] Glenn Gudino M.D. [id number] WBC (Bld) [#/Vol] 11.15 10*3/uL High 4.50-11.00 [facility] Comment on above: Performed By: #### 4 [id number] ####[facility] [address] [place] [address] Glenn Gudino M.D. [id number] CT ANGIOGRAM ABDOMEN PELVISo n 02-08-2024 CT ANGIOGRAM ABDOMEN PELVIS Normal [facility] [facility] Comment on above: Order Comment: Injur y/Trauma or Illness?:Illness/OtherHow long have you had these symptoms (acute/chronic)?:AcuteReason for exam?:Retroperitoneal hematoma, follow up, with arterial and venous phase - discussed with Dr. Li...Type of Exam?:Subsequent/Follow-upAdditional signs and symptoms?:Retroperitoneal hematoma, follow up, with arterial and venous phase - discussed with Dr. Li... MAGNESIUM LEVELon 02-08-2024 Magnesium [Mass/Vol] 1.6 mg/dL Normal 1.6-2.4 [facility] Comment on above: Performed By: #### 4 6109 ####[facility] [address] [place] [address] Glenn Gudino M.D. [id number] POC GLUCOSE - [facility] 024 Glucose [Mass/Vol] 208 mg/dL [address] Comment on above: Performed By: #### 4 6932 ####[facility] [address] [place] [address] [id number] [facility] Glucose [Mass/Vol] 157 mg/dL [address] Comment on above: Performed By: #### 4 6932 ####[facility] [address] [place] [address] [id number] [facility] Glucose [Mass/Vol] 148 mg/dL [address] Comment on above: Performed By: #### 4 6997 ####[facility] [address] [place] [address] [id number] [facility] Glucose [Mass/Vol] 170 mg/dL [address] Comment on above: Performed By: #### 4 6930 ####[facility] [address] [place] [address] [id number] [facility] Glucose [Mass/Vol] 178 mg/dL High 65-99 [facility] Comment on above: Performed By: #### 4 6932 ####[facility] [address] [place] [address] [id number] [facility] PT/INRon 02-08-2024 INR Coag (PPP) [Relative time] 1.2 {INR} High 0.8-1.1 [facility] Comment on above: Order Comment: Jennifer retana the induction phase of oral anticoagulation, the INR may not reflect the anticoagulation status of the patient. Therapeutic ranges for INR's are:Most clinical situations: INR 2.0-3.0Mechanical Prosthetic Valve: INR 2.5-3.5Critical: INR >5.0 Performed By: #### 4 6391 ####[facility] [address] [place] [address] Glenn Gudino M.D. [id number] PT Coag (PPP) [Time] 14.7 s High 11.8-14.3 [facility] Comment on above: Order Comment: Jennifer retana the induction phase of oral anticoagulation, the INR may not reflect the anticoagulation status of the patient. Therapeutic ranges for INR's are:Most clinical situations: INR 2.0-3.0Mechanical Prosthetic Valve: INR 2.5-3.5Critical: INR >5.0 Performed By: #### 4 6391 ####[facility] [address] [place] [address] Glenn Gudino M.D. [id number] RENAL FUNCTION PANELon 02-07 Albumin [Mass/Vol] 2.3 g/dL Low 3.2-5.2 [facility] Comment on above: Order Comment: [facility] has implemented the eGFR calculation approach that does not have a coefficient for race that conforms to the NKF-ASN Task Force Recommendations. Performed By: #### 4 6449 ####[facility] [address] [place] [address] Glenn Gudino M.D. [id number] Anion gap [Moles/Vol] 13 mmol/L Normal 10-20 [facility] Comment on above: Order Comment: [facility] has implemented the eGFR calculation approach that does not have a coefficient for race that conforms to the NKF-ASN Task Force Recommendations. Performed By: #### 4 6449 ####[facility] [address] [place] [address] Glenn Gudino M.D. [id number] Calcium [Mass/Vol] 7.3 mg/dL Low 8.4-10.2 [facility] Comment on above: Order Comment: [facility] has implemented the eGFR calculation approach that does not have a coefficient for race that conforms to the NKF-ASN Task Force Recommendations. Performed By: #### 4 6449 ####[facility] [address] [place] [address] Glenn Gudino M.D. [id number] Chloride [Moles/Vol] 101 mmol/L Normal 98-108 [facility] Comment on above: Order Comment: [facility] has implemented the eGFR calculation approach that does not have a coefficient for race that conforms to the NKF-ASN Task Force Recommendations. Performed By: #### 4 6449 ####[facility] [address] [place] [address] Glenn Gudino M.D. [id number] Creatinine [Mass/Vol] 2.03 mg/dL High 0.60-1.10 [facility] Comment on above: Order Comment: [facility] has implemented the eGFR calculation approach that does not have a coefficient for race that conforms to the NKF-ASN Task Force Recommendations. Performed By: #### 4 6449 ####[facility] [address] [place] [address] Glenn Gudino M.D. [id number] EGFR 27 mL/min/1.73 m2 Low >=60 [facility] Comment on above: Order Comment: [facility] has implemented the eGFR calculation approach that does not have a coefficient for race that conforms to the NKF-ASN Task Force Recommendations. Result Comment: Joi mated GFR was calculated using the 2020 CKD-EPI creatinine equation. Performed By: #### 4 6449 ####[facility] [address] [place], [place] [address] Glenn Gudino M.D. [id number] Glucose [Mass/Vol] 195 mg/dL High 65-99 [facility] Comment on above: Order Comment: [facility] has implemented the eGFR calculation approach that does not have a coefficient for race that conforms to the NKF-ASN Task Force Recommendations. Performed By: #### 4 6449 ####[facility] [address] [place], [place] [address] Glenn Gudino M.D. [id number] HCO3 (Bld) [Moles/Vol] 26 mmol/L Normal 21-32 [facility] Comment on above: Order Comment: [facility] has implemented the eGFR calculation approach that does not have a coefficient for race that conforms to the NKF-ASN Task Force Recommendations. Performed By: #### 4 6449 ####[facility] [address] [place] [address] Glenn Gudino M.D. [id number] Phosphate [Mass/Vol] 2.3 mg/dL Low 2.8-4.1 [facility] Comment on above: Order Comment: [facility] has implemented the eGFR calculation approach that does not have a coefficient for race that conforms to the NKF-ASN Task Force Recommendations. Performed By: #### 4 6449 ####[facility] [address] [place] [address] Glenn Gudino M.D. [id number] Potassium [Moles/Vol] 3.8 mmol/L Normal 3.5-5.1 [facility] Comment on above: Order Comment: [facility] has implemented the eGFR calculation approach that does not have a coefficient for race that conforms to the NKF-ASN Task Force Recommendations. Performed By: #### 4 6449 ####[facility] [address] [place] [address] Glenn Gudino M.D. [id number] Sodium [Moles/Vol] 136 mmol/L Normal 135-145 [facility] Comment on above: Order Comment: [facility] has implemented the eGFR calculation approach that does not have a coefficient for race that conforms to the NKF-ASN Task Force Recommendations. Performed By: #### 4 6449 ####[facility] [address] [place] [address] Glenn Gudino M.D. [id number] Urea nitrogen [Mass/Vol] 33 mg/dL High 8-25 [facility] Comment on above: Order Comment: [facility] has implemented the eGFR calculation approach that does not have a coefficient for race that conforms to the NKF-ASN Task Force Recommendations. Performed By: #### 4 6449 ####[facility] [address] [place] [address] Glenn Gudino M.D. [id number] Urea nitrogen/Creatinine [Mass ratio] 16.3 mg/mg Normal 10.0-20.0 [facility] Comment on above: Order Comment: [facility] has implemented the eGFR calculation approach that does not have a coefficient for race that conforms to the NKF-ASN Task Force Recommendations. Performed By: #### 4 6449 ####[facility] [address] [place] [address] Glenn Gudino M.D. [id number] XR CHEST PA/APon 02-08-2024 XR CHEST PA/AP Normal [facility] Comment on above: Order Comment: Injur y/Trauma or Illness?:Illness/OtherHow long have you had these symptoms (acute/chronic)?:AcuteReason for exam?:chest tube palcement, pneumothoraxHistory of cancer?:uSurgeries, chemotherapy, or radiation?:uType of Exam?:OngoingAdditional signs and symptoms?:chest tube palcement, pneumothorax CALCIUM, IONIZEDon CALCIUM IONIZED 4.6 mg/dL Normal 4.5-5.3 [facility] Comment on above: Order Comment: Serum , non-CRRT source. Performed By: #### 4 5190 ####[facility] [address] [place] [address] Glenn Gudino M.D. [id number] CBCon 02-07-2024 AUTO NRBC 0.0 % Normal [facility] Comment on above: Performed By: #### 4 [id number] ####[facility] [address] [place] [address] Glenn Gudino M.D. [id number] AUTO NRBC ABS COUNT 0.00 K/mcL Normal 0.00-0.00 [facility] Comment on above: Performed By: #### 4 [id number] ####[facility] [address] [place] [address] Glenn Gudino M.D. [id number] Erythrocyte distribution width (RBC) [Ratio] 18.7 % High 11.6-14.8 [facility] Comment on above: Performed By: #### 4 [id number] ####[facility] [address] [place], [place] [address] Glenn Gudino M.D. [id number] Hematocrit (Bld) [Volume fraction] 24.3 % Low 36.0-46.0 [facility] Comment on above: Performed By: #### 4 [id number] ####[facility] [address] [place], [place] [address] Glenn Gudino M.D. [id number] Hemoglobin (Bld) [Mass/Vol] 7.7 g/dL Low 12.0-16.0 [facility] Comment on above: Performed By: #### 4 [id number] ####[facility] [address] [place] [address] Glenn Gudino M.D. [id number] MCH (RBC) [Entitic mass] 29.1 pg Normal 26.0-34.0 [facility] Comment on above: Performed By: #### 4 [id number] ####[facility] [address] [place] [address] Glenn Gudino M.D. [id number] MCV (RBC) [Entitic vol] 91.7 fL Normal 80.0-100.0 [facility] Comment on above: Performed By: #### 4 [id number] ####[facility] [address] [place] [address] Glenn Gudino M.D. [id number] MEAN CORPUSCULAR HEMOGLOBIN CONC 31.7 g/dL Normal 31.0-37.0 [facility] Comment on above: Performed By: #### 4 5218 ####[facility] [address] [place] [address] Glenn Gudino M.D. [id number] Platelet mean volume (Bld) [Entitic vol] 9.6 fL Normal 9.4-12.4 [facility] Comment on above: Performed By: #### 4 [id number] ####[facility] [address] [place], [place] [address] Glenn Gudino M.D. [id number] Platelets (Bld) [#/Vol] 229 10*3/uL Normal 150-400 [facility] Comment on above: Performed By: #### 4 [id number] ####[facility] [address] [place], [place] [address] Glenn Gudino M.D. [id number] RBC (Bld) [#/Vol] 2.65 10*6/uL Low 4.00-5.20 [facility] Comment on above: Performed By: #### 4 [id number] ####[facility] [address] [place] [address] Glenn Gudino M.D. [id number] WBC (Bld) [#/Vol] 13.25 10*3/uL High 4.50-11.00 [facility] Comment on above: Performed By: #### 4 [id number] ####[facility] [address] [place] [address] Glenn Gudino M.D. [id number] CONSULTon 02-07-2024 CONSULT Normal [facility] CV IR EMBOLIZATION (NON-NEUR O) (SPECIFY LOCATION)on 02-07-2024 CV IR EMBOLIZATION (NON-NEURO) (SPECIFY LOCATION) Normal [facility] CV IR LYMPHANGIOGRAMon 02-06 CV IR LYMPHANGIOGRAM Normal [facility] MAGNESIUM LEVELon 02-07-2024 Magnesium [Mass/Vol] 1.8 mg/dL Normal 1.6-2.4 [facility] Comment on above: Performed By: #### 4 6109 ####[facility] [address] [place] [address] Glenn Gudino M.D. [id number] POC GLUCOSE - [facility] 024 Glucose [Mass/Vol] 210 mg/dL High [address] [place] [address] Comment on above: Performed By: #### 4 6932 ####[facility] [address] [place] [address] [id number] [facility] Glucose [Mass/Vol] 135 mg/dL High [address] [place] [address] Comment on above: Performed By: #### 4 6996 ####[facility] [address] [place] [address] [id number] [facility] Glucose [Mass/Vol] 186 mg/dL High [address] [place] [address] Comment on above: Performed By: #### 4 6359 ####[facility] [address] [place] [address] [id number] [facility] Glucose [Mass/Vol] 166 mg/dL High [address] [place] [address] Comment on above: Performed By: #### 4 6932 ####[facility] [address] [place] [address] [id number] RM[facility] Glucose [Mass/Vol] 163 mg/dL High 65-99 [facility] Comment on above: Performed By: #### 4 6932 ####[facility] [address] [place] [address] [id number] [facility]EL[facility] 02-06 Albumin [Mass/Vol] 2.6 g/dL Low 3.2-5.2 [facility] Comment on above: Order Comment: [facility] has implemented the eGFR calculation approach that does not have a coefficient for race that conforms to the NKF-ASN Task Force Recommendations. Performed By: #### 4 6449 ####[facility] [address] [place] [address] Glenn Gudino M.D. [id number] Anion gap [Moles/Vol] 15 mmol/L Normal 10-20 [facility] Comment on above: Order Comment: [facility] has implemented the eGFR calculation approach that does not have a coefficient for race that conforms to the NKF-ASN Task Force Recommendations. Performed By: #### 4 6449 ####[facility] [address] [place] [address] Glenn Gudino M.D. [id number] Calcium [Mass/Vol] 7.7 mg/dL Low 8.4-10.2 [facility] Comment on above: Order Comment: [facility] has implemented the eGFR calculation approach that does not have a coefficient for race that conforms to the NKF-ASN Task Force Recommendations. Performed By: #### 4 6449 ####[facility] [address] [place], [place] [address] Glenn Gudino M.D. [id number] Chloride [Moles/Vol] 99 mmol/L Normal 98-108 [facility] Comment on above: Order Comment: [facility] has implemented the eGFR calculation approach that does not have a coefficient for race that conforms to the NKF-ASN Task Force Recommendations. Performed By: #### 4 6449 ####[facility] [address] [place] [address] Glenn Gudino M.D. [id number] Creatinine [Mass/Vol] 2.72 mg/dL High 0.60-1.10 [facility] Comment on above: Order Comment: [facility] has implemented the eGFR calculation approach that does not have a coefficient for race that conforms to the NKF-ASN Task Force Recommendations. Performed By: #### 4 6449 ####[facility] [address] [place] [address] Glenn Gudino M.D. [id number] EGFR 19 mL/min/1.73 m2 Low >=60 [facility] Comment on above: Order Comment: [facility] has implemented the eGFR calculation approach that does not have a coefficient for race that conforms to the NKF-ASN Task Force Recommendations. Result Comment: Joi mated GFR was calculated using the 2020 CKD-EPI creatinine equation. Performed By: #### 4 6449 ####[facility] [address] [place] [address] Glenn Gudino M.D. [id number] Glucose [Mass/Vol] 161 mg/dL High 65-99 [facility] Comment on above: Order Comment: [facility] has implemented the eGFR calculation approach that does not have a coefficient for race that conforms to the NKF-ASN Task Force Recommendations. Performed By: #### 4 6449 ####[facility] [address] [place] [address] Glenn Gudino M.D. [id number] HCO3 (Bld) [Moles/Vol] 26 mmol/L Normal 21-32 [facility] Comment on above: Order Comment: [facility] has implemented the eGFR calculation approach that does not have a coefficient for race that conforms to the NKF-ASN Task Force Recommendations. Performed By: #### 4 6449 ####[facility] [address] [place] [address]353 Glenn Gudino M.D. [id number] Phosphate [Mass/Vol] 2.1 mg/dL Low 2.8-4.1 [facility] Comment on above: Order Comment: [facility] has implemented the eGFR calculation approach that does not have a coefficient for race that conforms to the NKF-ASN Task Force Recommendations. Performed By: #### 4 6449 ####[facility] [address] [place] [address]40 Glenn Gudino M.D. [id number] Potassium [Moles/Vol] 3.9 mmol/L Normal 3.5-5.1 [facility] Comment on above: Order Comment: [facility] has implemented the eGFR calculation approach that does not have a coefficient for race that conforms to the NKF-ASN Task Force Recommendations. Result Comment: Slig htly Hemolyzed Performed By: #### 4 6449 ####[facility] [address] [place] [address] Glenn Gudino M.D. [id number] Sodium [Moles/Vol] 136 mmol/L Normal 135-145 [facility] Comment on above: Order Comment: [facility] has implemented the eGFR calculation approach that does not have a coefficient for race that conforms to the NKF-ASN Task Force Recommendations. Performed By: #### 4 6449 ####[facility] [address] [place] [address]56 Glenn Gudino M.D. [id number] Urea nitrogen [Mass/Vol] 42 mg/dL High 8-25 [facility] Comment on above: Order Comment: [facility] has implemented the eGFR calculation approach that does not have a coefficient for race that conforms to the NKF-ASN Task Force Recommendations. Performed By: #### 4 6449 ####[facility] [address] [place], [place] [address] Glenn Gudino M.D. [id number] Urea nitrogen/Creatinine [Mass ratio] 15.4 mg/mg Normal 10.0-20.0 [facility] Comment on above: Order Comment: [facility] has implemented the eGFR calculation approach that does not have a coefficient for race that conforms to the NKF-ASN Task Force Recommendations. Performed By: #### 4 6449 ####[facility] [address] [place] [address] Glenn Gudino M.D. [id number] XR CHEST PA/APon 02-07-2024 XR CHEST PA/AP Normal [facility] Comment on above: Order Comment: Injur y/Trauma or Illness?:Illness/OtherHow long have you had these symptoms (acute/chronic)?:AcuteReason for exam?:chest tube palcement, pneumothoraxHistory of cancer?:uSurgeries, chemotherapy, or radiation?:uType of Exam?:InitialAdditional signs and symptoms?:. ANTIBODY IDENTIFICATION-Con 02-06-2024 ANTIBODY IDENTIFICATION-C Normal [facility] Comment on above: Performed By: #### 4 6427_Anti-C ####[facility] [address] [place] [address] Nurys Oneill MD [id number] [facility] CALCIUM, IONIZEDon CALCIUM IONIZED 4.6 mg/dL Normal 4.5-5.3 [facility] Comment on above: Order Comment: Serum , non-CRRT source. Performed By: #### 4 5190 ####[facility] [address] [place] [address] Glenn Gudino M.D. [id number] CBCon 02-06-2024 AUTO NRBC 0.0 % Normal [facility] Comment on above: Performed By: #### 4 [id number] ####[facility] [address] [place] [address] Glenn Gudino M.D. [id number] AUTO NRBC ABS COUNT 0.00 K/mcL Normal 0.00-0.00 [facility] Comment on above: Performed By: #### 4 [id number] ####[facility] [address] [place] [address] Glenn Gudino M.D. [id number] Erythrocyte distribution width (RBC) [Ratio] 18.5 % High 11.6-14.8 [facility] Comment on above: Performed By: #### 4 [id number] ####[facility] [address] [place] [address] Glenn Gudino M.D. [id number] Hematocrit (Bld) [Volume fraction] 24.0 % Low 36.0-46.0 [facility] Comment on above: Performed By: #### 4 [id number] ####[facility] [address] [place] [address] Glenn Gudino M.D. [id number] Hemoglobin (Bld) [Mass/Vol] 7.5 g/dL Low 12.0-16.0 [facility] Comment on above: Performed By: #### 4 [id number] ####[facility] [address] [place], [place] [address] Glenn Gudino M.D. [id number] MCH (RBC) [Entitic mass] 28.4 pg Normal 26.0-34.0 [facility] Comment on above: Performed By: #### 4 [id number] ####[facility] [address] [place] [address] Glenn Gudino M.D. [id number] MCV (RBC) [Entitic vol] 90.9 fL Normal 80.0-100.0 [facility] Comment on above: Performed By: #### 4 [id number] ####[facility] [address] [place], [place] [address] Glenn Gudino M.D. [id number] MEAN CORPUSCULAR HEMOGLOBIN CONC 31.3 g/dL Normal 31.0-37.0 [facility] Comment on above: Performed By: #### 4 [id number] ####[facility] [address] [place] [address] Glenn Gudino M.D. [id number] Platelet mean volume (Bld) [Entitic vol] 10.2 fL Normal 9.4-12.4 [facility] Comment on above: Performed By: #### 4 [id number] ####[facility] [address] [place] [address] Glenn Gudino M.D. [id number] Platelets (Bld) [#/Vol] 197 10*3/uL Normal 150-400 [facility] Comment on above: Performed By: #### 4 [id number] ####[facility] [address] [place], [place] [address] Glenn Gudino M.D. [id number] RBC (Bld) [#/Vol] 2.64 10*6/uL Low 4.00-5.20 [facility] Comment on above: Performed By: #### 4 [id number] ####[facility] [address] [place], [place] [address] Glenn Gudino M.D. [id number] WBC (Bld) [#/Vol] 11.41 10*3/uL High 4.50-11.00 [facility] Comment on above: Performed By: #### 4 [id number] ####[facility] [address] [place] [address] Glenn Gudino M.D. [id number] MAGNESIUM LEVELon 02-06-2024 Magnesium [Mass/Vol] 1.9 mg/dL Normal 1.6-2.4 [facility] Comment on above: Performed By: #### 4 6109 ####[facility] [address] [place], [place] [address] Glenn Gudino M.D. [id number] POC GLUCOSE - [facility] 024 Glucose [Mass/Vol] 156 mg/dL High [address] [place] [address] Comment on above: Performed By: #### 4 6932 ####[facility] [address] [place] [address] [id number] [facility] Glucose [Mass/Vol] 135 mg/dL High [address] [place] [address] Comment on above: Performed By: #### 4 6932 ####[facility] [address] [place] [address] [id number] [facility] Glucose [Mass/Vol] 150 mg/dL High [address] [place] [address] Comment on above: Performed By: #### 4 6932 ####[facility] [address] [place] [address] [id number] [facility] Glucose [Mass/Vol] 196 mg/dL High [address] [place] [address] Comment on above: Performed By: #### 4 6932 ####[facility] [address] [place] [address] [id number] [facility] Glucose [Mass/Vol] 176 mg/dL [address] Comment on above: Performed By: #### 4 6932 ####[facility] [address] [place] [address] [id number] [facility] Glucose [Mass/Vol] 161 mg/dL High [address] [place] [address] Comment on above: Performed By: #### 4 6932 ####[facility] [address] [place] [address] [id number] [facility] RENAL FUNCTION PANELon 02-05 Albumin [Mass/Vol] 2.5 g/dL Low 3.2-5.2 [facility] Comment on above: Order Comment: [facility] has implemented the eGFR calculation approach that does not have a coefficient for race that conforms to the NKF-ASN Task Force Recommendations. Performed By: #### 4 6449 ####[facility] [address] [place] [address] 58952 Glenn Gudino M.D. [id number] Anion gap [Moles/Vol] 12 mmol/L Normal 10-20 [facility] Comment on above: Order Comment: [facility] has implemented the eGFR calculation approach that does not have a coefficient for race that conforms to the NKF-ASN Task Force Recommendations. Performed By: #### 4 6449 ####[facility] [address] [place] [address] Glenn Gudino M.D. [id number] Calcium [Mass/Vol] 7.8 mg/dL Low 8.4-10.2 [facility] Comment on above: Order Comment: [facility] has implemented the eGFR calculation approach that does not have a coefficient for race that conforms to the NKF-ASN Task Force Recommendations. Performed By: #### 4 6449 ####[facility] [address] [place], [place] [address] Glenn Gudino M.D. [id number] Chloride [Moles/Vol] 97 mmol/L Low 98-108 [facility] Comment on above: Order Comment: [facility] has implemented the eGFR calculation approach that does not have a coefficient for race that conforms to the NKF-ASN Task Force Recommendations. Performed By: #### 4 6449 ####[facility] [address] [place] [address] Glenn Gudino M.D. [id number] Creatinine [Mass/Vol] 1.97 mg/dL High 0.60-1.10 [facility] Comment on above: Order Comment: [facility] has implemented the eGFR calculation approach that does not have a coefficient for race that conforms to the NKF-ASN Task Force Recommendations. Performed By: #### 4 6449 ####[facility] [address] [place] [address] 20925 Glenn Gudino M.D. [id number] EGFR 28 mL/min/1.73 m2 Low >=60 [facility] Comment on above: Order Comment: [facility] has implemented the eGFR calculation approach that does not have a coefficient for race that conforms to the NKF-ASN Task Force Recommendations. Result Comment: Joi mated GFR was calculated using the 2020 CKD-EPI creatinine equation. Performed By: #### 4 6449 ####[facility] [address] [place], [place] [address] Glenn Gudino M.D. [id number] Glucose [Mass/Vol] 143 mg/dL High 65-99 [facility] Comment on above: Order Comment: [facility] has implemented the eGFR calculation approach that does not have a coefficient for race that conforms to the NKF-ASN Task Force Recommendations. Performed By: #### 4 6449 ####[facility] [address] [place], [place] [address] Glenn Gudino M.D. [id number] HCO3 (Bld) [Moles/Vol] 28 mmol/L Normal 21-32 [facility] Comment on above: Order Comment: [facility] has implemented the eGFR calculation approach that does not have a coefficient for race that conforms to the NKF-ASN Task Force Recommendations. Performed By: #### 4 6449 ####[facility] [address] [place] [address] 94251 Glenn Gudino M.D. [id number] Phosphate [Mass/Vol] 1.7 mg/dL Low 2.8-4.1 [facility] Comment on above: Order Comment: [facility] has implemented the eGFR calculation approach that does not have a coefficient for race that conforms to the NKF-ASN Task Force Recommendations. Performed By: #### 4 6449 ####[facility] [address] [place] [address] 57191 Glenn Gudino M.D. [id number] Potassium [Moles/Vol] 3.5 mmol/L Normal 3.5-5.1 [facility] Comment on above: Order Comment: [facility] has implemented the eGFR calculation approach that does not have a coefficient for race that conforms to the NKF-ASN Task Force Recommendations. Performed By: #### 4 6449 ####[facility] [address] [place] [address] 16747 Glenn Gudino M.D. [id number] Sodium [Moles/Vol] 133 mmol/L Low 135-145 [facility] Comment on above: Order Comment: [facility] has implemented the eGFR calculation approach that does not have a coefficient for race that conforms to the NKF-ASN Task Force Recommendations. Performed By: #### 4 6449 ####[facility] [address] [place], [place] [address] Glenn Gudino M.D. [id number] Urea nitrogen [Mass/Vol] 26 mg/dL High 8-25 [facility] Comment on above: Order Comment: [facility] has implemented the eGFR calculation approach that does not have a coefficient for race that conforms to the NKF-ASN Task Force Recommendations. Performed By: #### 4 6449 ####[facility] [address] [place] [address] 33920 Glenn Gudino M.D. [id number] Urea nitrogen/Creatinine [Mass ratio] 13.2 mg/mg Normal 10.0-20.0 [facility] Comment on above: Order Comment: [facility] has implemented the eGFR calculation approach that does not have a coefficient for race that conforms to the NKF-ASN Task Force Recommendations. Performed By: #### 4 6449 ####[facility] [address] [place] [address] 04377 Glenn Gudino M.D. [id number] TYPE AND SCREENon 02-06-2024 TYPE AND SCREEN ABORH: O Positive AB SCREEN: Positive EXPIRATION DATE: 02/09/2024 23:59 EST Normal [facility] Comment on above: Performed By: #### 4 6619 ####[facility] [address] [place] [address] Nurys Oneill MD [id number] RMHTS XR CHEST PA/APon 02-06-2024 XR CHEST PA/AP Normal [facility] Comment on above: Order Comment: Injur y/Trauma or Illness?:Illness/OtherHow long have you had these symptoms (acute/chronic)?:UnknownReason for exam?:chest tube palcement, pneumothoraxHistory of cancer?:uSurgeries, chemotherapy, or radiation?:uType of Exam?:OngoingAdditional signs and symptoms?:chest tube palcement, pneumothorax CALCIUM, IONIZEDon CALCIUM IONIZED 4.6 mg/dL Normal 4.5-5.3 [facility] Comment on above: Order Comment: Serum , non-CRRT source. Performed By: #### 4 5190 ####[facility] [address] [place] [address] Glenn Gudino M.D. [id number] CBCon 02-05-2024 AUTO NRBC 0.0 % Normal [facility] Comment on above: Performed By: #### 4 [id number] ####[facility] [address] [place], [place] [address] Glenn Gudino M.D. [id number] AUTO NRBC ABS COUNT 0.00 K/mcL Normal 0.00-0.00 [facility] Comment on above: Performed By: #### 4 [id number] ####[facility] [address] [place], [place] [address] Glenn Gudino M.D. [id number] Erythrocyte distribution width (RBC) [Ratio] 18.2 % High 11.6-14.8 [facility] Comment on above: Performed By: #### 4 [id number] ####[facility] [address] [place], [place] [address] Glenn Gudino M.D. [id number] Hematocrit (Bld) [Volume fraction] 27.7 % Low 36.0-46.0 [facility] Comment on above: Performed By: #### 4 [id number] ####[facility] [address] [place], [place] [address] Glenn Gudino M.D. [id number] Hemoglobin (Bld) [Mass/Vol] 8.7 g/dL Low 12.0-16.0 [facility] Comment on above: Performed By: #### 4 [id number] ####[facility] [address] [place] [address] Glenn Gudino M.D. [id number] MCH (RBC) [Entitic mass] 28.8 pg Normal 26.0-34.0 [facility] Comment on above: Performed By: #### 4 [id number] ####[facility] [address] [place] [address] Glenn Gudino M.D. [id number] MCV (RBC) [Entitic vol] 91.7 fL Normal 80.0-100.0 [facility] Comment on above: Performed By: #### 4 [id number] ####[facility] [address] [place], [place] [address] Glenn Gudino M.D. [id number] MEAN CORPUSCULAR HEMOGLOBIN CONC 31.4 g/dL Normal 31.0-37.0 [facility] Comment on above: Performed By: #### 4 [id number] ####[facility] [address] [place], [place] [address] Glenn Gudino M.D. [id number] Platelet mean volume (Bld) [Entitic vol] 9.5 fL Normal 9.4-12.4 [facility] Comment on above: Performed By: #### 4 [id number] ####[facility] [address] [place], [place] [address] Glenn Gudino M.D. [id number] Platelets (Bld) [#/Vol] 226 10*3/uL Normal 150-400 [facility] Comment on above: Performed By: #### 4 [id number] ####[facility] [address] [place] [address] 55216 Glenn Gudino M.D. [id number] RBC (Bld) [#/Vol] 3.02 10*6/uL Low 4.00-5.20 [facility] Comment on above: Performed By: #### 4 [id number] ####[facility] [address] [place] [address] 88644 Glenn Gudino M.D. [id number] WBC (Bld) [#/Vol] 15.07 10*3/uL High 4.50-11.00 [facility] Comment on above: Performed By: #### 4 [id number] ####[facility] [address] [place] [address] 90924 Glenn Gudino M.D. [id number] COMPREHENSIVE METABOLIC PANE [facility] 02-05-2024 Albumin [Mass/Vol] 2.5 g/dL Low 3.2-5.2 [facility] Comment on above: Order Comment: [facility] has implemented the eGFR calculation approach that does not have a coefficient for race that conforms to the NKF-ASN Task Force Recommendations. Performed By: #### 4 6126 ####[facility] [address] [place] [address] 63512 Glenn Gudino M.D. [id number] ALP [Catalytic activity/Vol] 50 U/L Normal 40-150 [facility] Comment on above: Order Comment: [facility] has implemented the eGFR calculation approach that does not have a coefficient for race that conforms to the NKF-ASN Task Force Recommendations. Performed By: #### 4 6126 ####[facility] [address] [place] [address] 91605 Glenn Gudino M.D. [id number] ALT [Catalytic activity/Vol] 7 U/L Normal 0-35 U/L [facility] Comment on above: Order Comment: [facility] has implemented the eGFR calculation approach that does not have a coefficient for race that conforms to the NKF-ASN Task Force Recommendations. Performed By: #### 4 6126 ####[facility] [address] [place] [address] 45043 Glenn Gudino M.D. [id number] Anion gap [Moles/Vol] 12 mmol/L Normal 10-20 [facility] Comment on above: Order Comment: [facility] has implemented the eGFR calculation approach that does not have a coefficient for race that conforms to the NKF-ASN Task Force Recommendations. Performed By: #### 4 6126 ####[facility] [address] [place], [place] [address] Glenn Gudino M.D. [id number] AST [Catalytic activity/Vol] 23 U/L Normal 0-35 U/L [facility] Comment on above: Order Comment: [facility] has implemented the eGFR calculation approach that does not have a coefficient for race that conforms to the NKF-ASN Task Force Recommendations. Performed By: #### 4 6126 ####[facility] [address] [place] [address] 64580 Glenn Gudino M.D. [id number] Bilirubin [Mass/Vol] 0.4 mg/dL Normal 0.0-1.3 [facility] Comment on above: Order Comment: [facility] has implemented the eGFR calculation approach that does not have a coefficient for race that conforms to the NKF-ASN Task Force Recommendations. Performed By: #### 4 6126 ####[facility] [address] [place] [address] 07048 Glenn Gudino M.D. [id number] Calcium [Mass/Vol] 7.8 mg/dL Low 8.4-10.2 [facility] Comment on above: Order Comment: [facility] has implemented the eGFR calculation approach that does not have a coefficient for race that conforms to the NKF-ASN Task Force Recommendations. Performed By: #### 4 6126 ####[facility] [address] [place] [address] 24023 Glenn Gudino M.D. [id number] Chloride [Moles/Vol] 96 mmol/L Low 98-108 [facility] Comment on above: Order Comment: [facility] has implemented the eGFR calculation approach that does not have a coefficient for race that conforms to the NKF-ASN Task Force Recommendations. Performed By: #### 4 6126 ####[facility] [address] [place] [address] 56357 Glenn Gudino M.D. [id number] Creatinine [Mass/Vol] 2.82 mg/dL High 0.60-1.10 [facility] Comment on above: Order Comment: [facility] has implemented the eGFR calculation approach that does not have a coefficient for race that conforms to the NKF-ASN Task Force Recommendations. Performed By: #### 4 6126 ####[facility] [address] [place] [address] 37285 Glenn Gudino M.D. [id number] EGFR 19 mL/min/1.73 m2 Low >=60 [facility] Comment on above: Order Comment: [facility] has implemented the eGFR calculation approach that does not have a coefficient for race that conforms to the NKF-ASN Task Force Recommendations. Result Comment: Joi mated GFR was calculated using the 2020 CKD-EPI creatinine equation. Performed By: #### 4 6126 ####[facility] [address] [place] [address] 40824 Glenn Gudino M.D. [id number] Glucose [Mass/Vol] 173 mg/dL High 65-99 [facility] Comment on above: Order Comment: [facility] has implemented the eGFR calculation approach that does not have a coefficient for race that conforms to the NKF-ASN Task Force Recommendations. Performed By: #### 4 6126 ####[facility] [address] [place] [address] 04008 Glenn Gudino M.D. [id number] HCO3 (Bld) [Moles/Vol] 28 mmol/L Normal 21-32 [facility] Comment on above: Order Comment: [facility] has implemented the eGFR calculation approach that does not have a coefficient for race that conforms to the NKF-ASN Task Force Recommendations. Performed By: #### 4 6126 ####[facility] [address] [place], [place] [address] Glenn Gudino M.D. [id number] Potassium [Moles/Vol] 4.1 mmol/L Normal 3.5-5.1 [facility] Comment on above: Order Comment: [facility] has implemented the eGFR calculation approach that does not have a coefficient for race that conforms to the NKF-ASN Task Force Recommendations. Performed By: #### 4 6126 ####[facility] [address] [place], [place] [address] Glenn Gudino M.D. [id number] Protein [Mass/Vol] 5.1 g/dL Low 6.0-8.0 [facility] Comment on above: Order Comment: [facility] has implemented the eGFR calculation approach that does not have a coefficient for race that conforms to the NKF-ASN Task Force Recommendations. Performed By: #### 4 6126 ####[facility] [address] [place], [place] [address] Glenn Gudino M.D. [id number] Sodium [Moles/Vol] 132 mmol/L Low 135-145 [facility] Comment on above: Order Comment: [facility] has implemented the eGFR calculation approach that does not have a coefficient for race that conforms to the NKF-ASN Task Force Recommendations. Performed By: #### 4 6126 ####[facility] [address] [place], [place] [address] Glenn Gudino M.D. [id number] Urea nitrogen [Mass/Vol] 34 mg/dL High 8-25 [facility] Comment on above: Order Comment: [facility] has implemented the eGFR calculation approach that does not have a coefficient for race that conforms to the NKF-ASN Task Force Recommendations. Performed By: #### 4 6126 ####[facility] [address] [place] [address] Glenn Gudino M.D. [id number] Urea nitrogen/Creatinine [Mass ratio] 12.1 mg/mg Normal 10.0-20.0 [facility] Comment on above: Order Comment: [facility] has implemented the eGFR calculation approach that does not have a coefficient for race that conforms to the NKF-ASN Task Force Recommendations. Performed By: #### 4 6126 ####[facility] [address] [place] [address] Glenn Gudino M.D. [id number] MAGNESIUM LEVELon 02-05-2024 Magnesium [Mass/Vol] 2.1 mg/dL Normal 1.6-2.4 [facility] Comment on above: Performed By: #### 4 6109 ####[facility] [address] [place] [address] Glenn Gudino M.D. [id number] PHOSPHORUSon 02-05-2024 Phosphate [Mass/Vol] 2.8 mg/dL Normal 2.8-4.1 [facility] Comment on above: Performed By: #### 4 6299 ####[facility] [address] [place] [address] Glenn Gudino M.D. [id number] POC GLUCOSE - [facility] 024 Glucose [Mass/Vol] 143 mg/dL High 65-99 [facility] Comment on above: Performed By: #### 4 6932 ####[facility] [address] [place] [address] [id number] RMHPOC Glucose [Mass/Vol] 186 mg/dL High 65-99 [facility] Comment on above: Performed By: #### 4 6934 ####[facility] [address] [place] [address] [id number] [facility] Glucose [Mass/Vol] 97 mg/dL Normal 65-99 [facility] Comment on above: Performed By: #### 4 6981 ####[facility] [address] [place] [address] [id number] [facility] Glucose [Mass/Vol] 201 mg/dL High 65-99 [facility] Comment on above: Performed By: #### 4 6963 ####[facility] [address] [place] [address] [id number] [facility] Glucose [Mass/Vol] 193 mg/dL High 65-99 [facility] Comment on above: Performed By: #### 4 6982 ####[facility] [address] [place] [address] [id number] [facility] Glucose [Mass/Vol] 185 mg/dL High 65-99 [facility] Comment on above: Performed By: #### 4 6999 ####[facility] [address] [place] [address] [id number] [facility] Glucose [Mass/Vol] 172 mg/dL High 65-99 [facility] Comment on above: Performed By: #### 4 6927 ####[facility] [address] [place] [address] [id number] [facility] PREALBUMINon 02-05-2024 Prealbumin [Mass/Vol] 10.7 mg/dL Low 20.0-40.0 [facility] Comment on above: Performed By: #### 4 6355 ####[facility] [address] [place] [address] Glenn Gudino M.D. [id number] TRIGLYCERIDESon 02-05-2024 Triglyceride [Mass/Vol] 249 mg/dL High 30-150 [facility] Comment on above: Result Comment: [facility] [employer] Cholesterol Education Program Guidelines: TriglycerideNormal: <150 mg/dLBorderline High: 150-199 mg/dLHigh: 200-499 mg/dLVery High: greater than or equal to 500 mg/dL Performed By: #### 4 6606 ####[facility] [address] [place] [address] Glenn Gudino M.D. [id number] XR CHEST PA/APon 02-05-2024 XR CHEST PA/AP Normal [facility] Comment on above: Order Comment: Injur y/Trauma or Illness?:Illness/OtherHow long have you had these symptoms (acute/chronic)?:UnknownReason for exam?:chest tube palcement, pneumothoraxHistory of cancer?:uSurgeries, chemotherapy, or radiation?:uType of Exam?:InitialAdditional signs and symptoms?:. CALCIUM, IONIZEDon CALCIUM IONIZED 4.6 mg/dL Normal 4.5-5.3 [facility] Comment on above: Order Comment: Serum , non-CRRT source. Performed By: #### 4 5190 ####[facility] [address] [place], [place] [address] Glenn Gudino M.D. [id number] CBCon 02-04-2024 AUTO NRBC 0.0 % Normal [facility] Comment on above: Performed By: #### 4 [id number] ####[facility] [address] [place], [place] [address] Glenn Gudino M.D. [id number] AUTO NRBC ABS COUNT 0.00 K/mcL Normal 0.00-0.00 [facility] Comment on above: Performed By: #### 4 [id number] ####[facility] [address] [place], [place] [address] Glenn Gudino M.D. [id number] Erythrocyte distribution width (RBC) [Ratio] 18.1 % High 11.6-14.8 [facility] Comment on above: Performed By: #### 4 [id number] ####[facility] [address] [place], [place] [address] Glenn Gudino M.D. [id number] Hematocrit (Bld) [Volume fraction] 27.1 % Low 36.0-46.0 [facility] Comment on above: Performed By: #### 4 [id number] ####[facility] [address] [place] [address] Glenn Gudino M.D. [id number] Hemoglobin (Bld) [Mass/Vol] 8.5 g/dL Low 12.0-16.0 [facility] Comment on above: Performed By: #### 4 [id number] ####[facility] [address] [place] [address] Glenn Gudino M.D. [id number] MCH (RBC) [Entitic mass] 28.6 pg Normal 26.0-34.0 [facility] Comment on above: Performed By: #### 4 [id number] ####[facility] [address] [place], [place] [address] Glenn Gudino M.D. [id number] MCV (RBC) [Entitic vol] 91.2 fL Normal 80.0-100.0 [facility] Comment on above: Performed By: #### 4 [id number] ####[facility] [address] [place], [place] [address] Glenn Gudino M.D. [id number] MEAN CORPUSCULAR HEMOGLOBIN CONC 31.4 g/dL Normal 31.0-37.0 [facility] Comment on above: Performed By: #### 4 [id number] ####[facility] [address] [place], [place] [address] Glenn Gudino M.D. [id number] Platelet mean volume (Bld) [Entitic vol] 10.0 fL Normal 9.4-12.4 [facility] Comment on above: Performed By: #### 4 3018 ####[facility] [address] [place] [address] 66390 Glenn Gudino M.D. [id number] Platelets (Bld) [#/Vol] 215 10*3/uL Normal 150-400 [facility] Comment on above: Performed By: #### 4 [id number] ####[facility] [address] [place] [address] 47873 Glenn Gudino M.D. [id number] RBC (Bld) [#/Vol] 2.97 10*6/uL Low 4.00-5.20 [facility] Comment on above: Performed By: #### 4 [id number] ####[facility] [address] [place], [place] [address] Glenn Gudino M.D. [id number] WBC (Bld) [#/Vol] 13.18 10*3/uL High 4.50-11.00 [facility] Comment on above: Performed By: #### 4 [id number] ####[facility] [address] [place] [address] 70392 Glenn Gudino M.D. [id number] COMPREHENSIVE METABOLIC PANE [place] 02-04-2024 ALP [Catalytic activity/Vol] 47 U/L Normal 40-150 [facility] Comment on above: Order Comment: [facility] has implemented the eGFR calculation approach that does not have a coefficient for race that conforms to the NKF-ASN Task Force Recommendations. Performed By: #### 4 6126 ####[facility] [address] [place] [address] 19963 Glenn Gudino M.D. [id number] ALT [Catalytic activity/Vol] 6 U/L Normal 0-35 U/L [facility] Comment on above: Order Comment: [facility] has implemented the eGFR calculation approach that does not have a coefficient for race that conforms to the NKF-ASN Task Force Recommendations. Performed By: #### 4 6126 ####[facility] [address] [place] [address] 10797 Glenn Gudino M.D. [id number] AST [Catalytic activity/Vol] 20 U/L Normal 0-35 U/L [facility] Comment on above: Order Comment: [facility] has implemented the eGFR calculation approach that does not have a coefficient for race that conforms to the NKF-ASN Task Force Recommendations. Performed By: #### 4 6126 ####[facility] [address] [place], [place] [address] Glenn Gudino M.D. [id number] Bilirubin [Mass/Vol] 0.6 mg/dL Normal 0.0-1.3 [facility] Comment on above: Order Comment: [facility] has implemented the eGFR calculation approach that does not have a coefficient for race that conforms to the NKF-ASN Task Force Recommendations. Performed By: #### 4 6126 ####[facility] [address] [place], [place] [address] Glenn Gudino M.D. [id number] Protein [Mass/Vol] 5.2 g/dL Low 6.0-8.0 [facility] Comment on above: Order Comment: [facility] has implemented the eGFR calculation approach that does not have a coefficient for race that conforms to the NKF-ASN Task Force Recommendations. Performed By: #### 4 6126 ####[facility] [address] [place] [address] 66198 Glenn Gudino M.D. [id number] MAGNESIUM LEVELon 02-04-2024 Magnesium [Mass/Vol] 2.0 mg/dL Normal 1.6-2.4 [facility] Comment on above: Performed By: #### 4 6109 ####[facility] [address] [place] [address] 24077 Glenn Gudino M.D. [id number] [facility] Glucose [Mass/Vol] 136 mg/dL High 65- [facility] Comment on above: Performed By: #### 4 6957 ####[facility] [address] [place] [address] [id number] [facility] Glucose [Mass/Vol] 181 mg/dL High 65- [facility] Comment on above: Performed By: #### 4 6907 ####[facility] [address] [place] [address] [id number] [facility] Glucose [Mass/Vol] 178 mg/dL High 65- [facility] Comment on above: Performed By: #### 4 6974 ####[facility] [address] [place] [address] [id number] [facility] Glucose [Mass/Vol] 155 mg/dL High 65- [facility] Comment on above: Performed By: #### 4 6900 ####[facility] [address] [place] [address] [id number] [facility] Glucose [Mass/Vol] 145 mg/dL High 65- [facility] Comment on above: Performed By: #### 4 6918 ####[facility] [address] [place] [address] [id number] [facility] Glucose [Mass/Vol] 85 mg/dL Normal 65-[address] [place] [address] Comment on above: Performed By: #### 4 6917 ####[facility] [address] [place] [address] [id number] [facility] PREALBUMINon 02-04-2024 Prealbumin [Mass/Vol] 8.8 mg/dL Low 20.0-40.0 [facility] Comment on above: Performed By: #### 4 6355 ####[facility] [address] [place] [address] Glenn Gudino M.D. [id number] RENAL FUNCTION PANELon 02-03 Albumin [Mass/Vol] 2.6 g/dL Low 3.2-5.2 [facility] Comment on above: Order Comment: [facility] has implemented the eGFR calculation approach that does not have a coefficient for race that conforms to the NKF-ASN Task Force Recommendations. Performed By: #### 4 6449 ####[facility] [address] [place] [address] Glenn Gudino M.D. [id number] Performed By: #### 4 6126 ####[facility] [address] [place] [address] Glenn Gudino M.D. [id number] Anion gap [Moles/Vol] 15 mmol/L Normal 10-20 [facility] Comment on above: Order Comment: [facility] has implemented the eGFR calculation approach that does not have a coefficient for race that conforms to the NKF-ASN Task Force Recommendations. Performed By: #### 4 6449 ####[facility] [address] [place] [address] Glenn Gudino M.D. [id number] Performed By: #### 4 6126 ####[facility] [address] [place], [place] [address] Glenn Gudino M.D. [id number] Calcium [Mass/Vol] 8.1 mg/dL Low 8.4-10.2 [facility] Comment on above: Order Comment: [facility] has implemented the eGFR calculation approach that does not have a coefficient for race that conforms to the NKF-ASN Task Force Recommendations. Performed By: #### 4 6449 ####[facility] [address] [place], [place] [address] Glenn Gudino M.D. [id number] Performed By: #### 4 6126 ####[facility] [address] [place], [place] [address] Glenn Gudino M.D. [id number] Chloride [Moles/Vol] 95 mmol/L Low 98-108 [facility] Comment on above: Order Comment: [facility] has implemented the eGFR calculation approach that does not have a coefficient for race that conforms to the NKF-ASN Task Force Recommendations. Performed By: #### 4 6449 ####[facility] [address] [place] [address] Glenn Gudino M.D. [id number] Performed By: #### 4 6126 ####[facility] [address] [place] [address] Glenn Gudino M.D. [id number] Creatinine [Mass/Vol] 2.14 mg/dL High 0.60-1.10 [facility] Comment on above: Order Comment: [facility] has implemented the eGFR calculation approach that does not have a coefficient for race that conforms to the NKF-ASN Task Force Recommendations. Performed By: #### 4 6449 ####[facility] [address] [place] [address] Glenn Gudino M.D. [id number] Performed By: #### 4 6126 ####[facility] [address] [place], [place] [address] Glenn Gudino M.D. [id number] EGFR 26 mL/min/1.73 m2 Low >=60 [facility] Comment on above: Order Comment: [facility] has implemented the eGFR calculation approach that does not have a coefficient for race that conforms to the NKF-ASN Task Force Recommendations. Result Comment: Joi mated GFR was calculated using the 2020 CKD-EPI creatinine equation. Performed By: #### 4 6449 ####[facility] [address] [place], [place] [address] Glenn Gudino M.D. [id number] Result Comment: Joi mated GFR was calculated using the 2020 CKD-EPI creatinine equation.Estimated GFR was calculated using the 2020 CKD-EPI creatinine equation. Performed By: #### 4 6126 ####[facility] [address] [place], [place] [address] Glenn Gudino M.D. [id number] Glucose [Mass/Vol] 151 mg/dL High 65-99 [facility] Comment on above: Order Comment: [facility] has implemented the eGFR calculation approach that does not have a coefficient for race that conforms to the NKF-ASN Task Force Recommendations. Performed By: #### 4 6449 ####[facility] [address] [place] [address] Glenn Gudino M.D. [id number] Performed By: #### 4 6126 ####[facility] [address] [place] [address] Glenn Gudino M.D. [id number] HCO3 (Bld) [Moles/Vol] 26 mmol/L Normal 21-32 [facility] Comment on above: Order Comment: [facility] has implemented the eGFR calculation approach that does not have a coefficient for race that conforms to the NKF-ASN Task Force Recommendations. Performed By: #### 4 6449 ####[facility] [address] [place], [place] [address] Glenn Gudino M.D. [id number] Performed By: #### 4 6126 ####[facility] [address] [place], [place] [address] Glenn uGdino M.D. [id number] Phosphate [Mass/Vol] 3.4 mg/dL Normal 2.8-4.1 [facility] Comment on above: Order Comment: [facility] has implemented the eGFR calculation approach that does not have a coefficient for race that conforms to the NKF-ASN Task Force Recommendations. Performed By: #### 4 6449 ####[facility] [address] [place], [place] [address] Glenn Gudino M.D. [id number] Potassium [Moles/Vol] 4.1 mmol/L Normal 3.5-5.1 [facility] Comment on above: Order Comment: [facility] has implemented the eGFR calculation approach that does not have a coefficient for race that conforms to the NKF-ASN Task Force Recommendations. Performed By: #### 4 6449 ####[facility] [address] [place] [address] Glenn Gudino M.D. [id number] Performed By: #### 4 6126 ####[facility] [address] [place] [address] Glenn Gudino M.D. [id number] Sodium [Moles/Vol] 132 mmol/L Low 135-145 [facility] Comment on above: Order Comment: [facility] has implemented the eGFR calculation approach that does not have a coefficient for race that conforms to the NKF-ASN Task Force Recommendations. Performed By: #### 4 6449 ####[facility] [address] [place] [address] Glenn Gudino M.D. [id number] Performed By: #### 4 6126 ####[facility] [address] [place], [place] [address] Glenn Gudino M.D. [id number] Urea nitrogen [Mass/Vol] 22 mg/dL Normal 8-25 [facility] Comment on above: Order Comment: [facility] has implemented the eGFR calculation approach that does not have a coefficient for race that conforms to the NKF-ASN Task Force Recommendations. Performed By: #### 4 6449 ####[facility] [address] [place], [place] [address] Glenn Gudino M.D. [id number] Performed By: #### 4 6126 ####[facility] [address] [place], [place] [address] Glenn Gudino M.D. [id number] Urea nitrogen/Creatinine [Mass ratio] 10.3 mg/mg Normal 10.0-20.0 [facility] Comment on above: Order Comment: [facility] has implemented the eGFR calculation approach that does not have a coefficient for race that conforms to the NKF-ASN Task Force Recommendations. Performed By: #### 4 6449 ####[facility] [address] [place] [address] Glenn Gudino M.D. [id number] Performed By: #### 4 6126 ####[facility] [address] [place] [address] Glenn Gudino M.D. [id number] TRIGLYCERIDESon 02-04-2024 Triglyceride [Mass/Vol] 339 mg/dL High 30-150 [facility] Comment on above: Result Comment: [facility] on[facility] Cholesterol Education Program Guidelines: TriglycerideNormal: <150 mg/dLBorderline High: 150-199 mg/dLHigh: 200-499 mg/dLVery High: greater than or equal to 500 mg/dL Performed By: #### 4 6606 ####[facility] [address] [place] [address] Glenn Gudino M.D. [id number] XR CHEST PA/APon 02-04-2024 XR CHEST PA/AP Normal [facility] Comment on above: Order Comment: Injur y/Trauma or Illness?:Illness/OtherHow long have you had these symptoms (acute/chronic)?:AcuteReason for exam?:chest tube palcement, pneumothoraxHistory of cancer?:uSurgeries, chemotherapy, or radiation?:uType of Exam?:OngoingAdditional signs and symptoms?:chest tube palcement, pneumothorax ANTIBODY IDENTIFICATION-Con 02-03-2024 ANTIBODY IDENTIFICATION-C Normal [facility] Comment on above: Performed By: #### 4 6427_Anti-C ####[facility] [address] [place] [address] Nurys Oneill MD [id number] [facility] CALCIUM, IONIZEDon CALCIUM IONIZED 4.5 mg/dL Normal 4.5-5.3 [facility] Comment on above: Order Comment: Serum , non-CRRT source. Performed By: #### 4 5190 ####[facility] [address] [place], [place] [address] Glenn Gudino M.D. [id number] CBCon 02-03-2024 AUTO NRBC 0.0 % Normal [facility] Comment on above: Performed By: #### 4 5218 ####[facility] [address] [place], [place] [address] Glenn Gudino M.D. [id number] AUTO NRBC ABS COUNT 0.00 K/mcL Normal 0.00-0.00 [facility] Comment on above: Performed By: #### 4 5218 ####[facility] [address] [place], [place] [address] Glenn Gudino M.D. [id number] Erythrocyte distribution width (RBC) [Ratio] 17.8 % High 11.6-14.8 [facility] Comment on above: Performed By: #### 4 5218 ####[facility] [address] [place] [address] 84477 Glenn Gudino M.D. [id number] Hematocrit (Bld) [Volume fraction] 29.4 % Low 36.0-46.0 [facility] Comment on above: Performed By: #### 4 [id number] ####[facility] [address] [place], [place] [address] Glenn Gudino M.D. [id number] Hemoglobin (Bld) [Mass/Vol] 9.6 g/dL Low 12.0-16.0 [facility] Comment on above: Performed By: #### 4 5218 ####[facility] [address] [place], [place] [address] Glenn Gudino M.D. [id number] MCH (RBC) [Entitic mass] 29.0 pg Normal 26.0-34.0 [facility] Comment on above: Performed By: #### 4 [id number] ####[facility] [address] [place], [place] [address] Glenn Gudino M.D. [id number] MCV (RBC) [Entitic vol] 88.8 fL Normal 80.0-100.0 [facility] Comment on above: Performed By: #### 4 [id number] ####[facility] [address] [place], [place] [address] Glenn Gudino M.D. [id number] MEAN CORPUSCULAR HEMOGLOBIN CONC 32.7 g/dL Normal 31.0-37.0 [facility] Comment on above: Performed By: #### 4 [id number] ####[facility] [address] [place], [place] [address] Glenn Gudino M.D. [id number] Platelet mean volume (Bld) [Entitic vol] 9.6 fL Normal 9.4-12.4 [facility] Comment on above: Performed By: #### 4 [id number] ####[facility] [address] [place], [place] [address] Glenn Gudino M.D. [id number] Platelets (Bld) [#/Vol] 150 10*3/uL Normal 150-400 [facility] Comment on above: Performed By: #### 4 [id number] ####[facility] [address] [place], [place] [address] Glenn Gudino M.D. [id number] RBC (Bld) [#/Vol] 3.31 10*6/uL Low 4.00-5.20 [facility] Comment on above: Performed By: #### 4 5218 ####[facility] [address] [place], [place] [address] Glenn Gudino M.D. [id number] WBC (Bld) [#/Vol] 13.45 10*3/uL High 4.50-11.00 [facility] Comment on above: Performed By: #### 4 [id number] ####[facility] [address] [place], [place] [address] Glenn Gudino M.D. [id number] CONSULTon 02-03-2024 CONSULT VIR consulted for no n tunneled CVC for short term TPN. Spoke to vascular surgery team. They'll plan to place an IJV line. AUTHENTICATED BY ROBERT DEL VALLE ON 02/03/2024 11:17:22 Normal [facility] MAGNESIUM LEVELon 02-03-2024 Magnesium [Mass/Vol] 2.1 mg/dL Normal 1.6-2.4 [facility] Comment on above: Performed By: #### 4 6109 ####[facility] [address] [place] [address] Glenn Gudino M.D. [id number] POC GLUCOSE - [facility] 024 Glucose [Mass/Vol] 95 mg/dL Normal 65-99 [facility] Comment on above: Performed By: #### 4 6961 ####[facility] [address] [place] [address] [id number] [facility] Glucose [Mass/Vol] 102 mg/dL High 65-99 [facility] Comment on above: Performed By: #### 4 6999 ####[facility] [address] [place] [address] [id number] [facility] Glucose [Mass/Vol] 113 mg/dL High 65-99 [facility] Comment on above: Performed By: #### 4 8983 ####[facility] [address] [place] [address] [id number] [facility] Glucose [Mass/Vol] 132 mg/dL High 65-99 [facility] Comment on above: Performed By: #### 4 6948 ####[facility] [address] [place] [address] [id number] [facility] Glucose [Mass/Vol] 145 mg/dL High 65-99 [facility] Comment on above: Performed By: #### 4 6932 ####[facility] [address] [place] [address] [id number] HPOC Glucose [Mass/Vol] 131 mg/dL High 65-99 [facility] Comment on above: Performed By: #### 4 6932 ####[facility] [address] [place] [address] [id number] [facility]-02 Albumin [Mass/Vol] 2.4 g/dL Low 3.2-5.2 [facility] Comment on above: Order Comment: [facility] has implemented the eGFR calculation approach that does not have a coefficient for race that conforms to the NKF-ASN Task Force Recommendations. Performed By: #### 4 6449 ####[facility] [address] [place] [address] Glenn Gudino M.D. [id number] Anion gap [Moles/Vol] 16 mmol/L Normal 10-20 [facility] Comment on above: Order Comment: [facility] has implemented the eGFR calculation approach that does not have a coefficient for race that conforms to the NKF-ASN Task Force Recommendations. Performed By: #### 4 6449 ####[facility] [address] [place] [address] Glenn Gudino M.D. [id number] Calcium [Mass/Vol] 7.9 mg/dL Low 8.4-10.2 [facility] Comment on above: Order Comment: [facility] has implemented the eGFR calculation approach that does not have a coefficient for race that conforms to the NKF-ASN Task Force Recommendations. Performed By: #### 4 6449 ####[facility] [address] [place], [place] [address] Glenn Gudino M.D. [id number] Chloride [Moles/Vol] 97 mmol/L Low 98-108 [facility] Comment on above: Order Comment: [facility] has implemented the eGFR calculation approach that does not have a coefficient for race that conforms to the NKF-ASN Task Force Recommendations. Performed By: #### 4 6449 ####[facility] [address] [place] [address] Glenn Gudino M.D. [id number] Creatinine [Mass/Vol] 2.53 mg/dL High 0.60-1.10 [facility] Comment on above: Order Comment: [facility] has implemented the eGFR calculation approach that does not have a coefficient for race that conforms to the NKF-ASN Task Force Recommendations. Performed By: #### 4 6449 ####[facility] [address] [place], [place] [address] Glenn Gudino M.D. [id number] EGFR 21 mL/min/1.73 m2 Low >=60 [facility] Comment on above: Order Comment: [facility] has implemented the eGFR calculation approach that does not have a coefficient for race that conforms to the NKF-ASN Task Force Recommendations. Result Comment: Joi mated GFR was calculated using the 2020 CKD-EPI creatinine equation. Performed By: #### 4 6449 ####[facility] [address] [place] [address] Glenn Gudino M.D. [id number] Glucose [Mass/Vol] 154 mg/dL High 65-99 [facility] Comment on above: Order Comment: [facility] has implemented the eGFR calculation approach that does not have a coefficient for race that conforms to the NKF-ASN Task Force Recommendations. Performed By: #### 4 6449 ####[facility] [address] [place] [address]98[address] Glenn Gudino M.D. [id number] HCO3 (Bld) [Moles/Vol] 25 mmol/L Normal 21-32 [facility] Comment on above: Order Comment: [facility] has implemented the eGFR calculation approach that does not have a coefficient for race that conforms to the NKF-ASN Task Force Recommendations. Performed By: #### 4 6449 ####[facility] [address] [place] [address] Glenn Gudino M.D. [id number] Phosphate [Mass/Vol] 3.6 mg/dL Normal 2.8-4.1 [facility] Comment on above: Order Comment: [facility] has implemented the eGFR calculation approach that does not have a coefficient for race that conforms to the NKF-ASN Task Force Recommendations. Performed By: #### 4 6449 ####[facility] [address] [place] [address] Glenn Gudino M.D. [id number] Potassium [Moles/Vol] 5.8 mmol/L High 3.5-5.1 [facility] Comment on above: Order Comment: [facility] has implemented the eGFR calculation approach that does not have a coefficient for race that conforms to the NKF-ASN Task Force Recommendations. Performed By: #### 4 6449 ####[facility] [address] [place] [address] Glenn Gudino M.D. [id number] Sodium [Moles/Vol] 132 mmol/L Low 135-145 [facility] Comment on above: Order Comment: [facility] has implemented the eGFR calculation approach that does not have a coefficient for race that conforms to the NKF-ASN Task Force Recommendations. Performed By: #### 4 6449 ####[facility] [address] [place] [address] Glenn Gudino M.D. [id number] Urea nitrogen [Mass/Vol] 30 mg/dL High 8-25 [facility] Comment on above: Order Comment: [facility] has implemented the eGFR calculation approach that does not have a coefficient for race that conforms to the NKF-ASN Task Force Recommendations. Performed By: #### 4 6449 ####[facility] [address] [place] [address] Glenn Gudino M.D. [id number] Urea nitrogen/Creatinine [Mass ratio] 11.9 mg/mg Normal 10.0-20.0 [facility] Comment on above: Order Comment: [facility] has implemented the eGFR calculation approach that does not have a coefficient for race that conforms to the NKF-ASN Task Force Recommendations. Performed By: #### 4 6449 ####[facility] [address] [place] [address] Glenn Gudino M.D. [id number] TYPE AND SCREENon 02-03-2024 TYPE AND SCREEN Normal [facility] Comment on above: Performed By: #### 4 6619 ####[facility] [address] [place] [address] Nurys Oneill MD [id number] RMHTS XR CHEST PA/APon 02-03-2024 XR CHEST PA/AP Normal [facility] Comment on above: Order Comment: Injur y/Trauma or Illness?:Illness/OtherHow long have you had these symptoms (acute/chronic)?:AcuteReason for exam?:attempted L subclavianHistory of cancer?:uSurgeries, chemotherapy, or radiation?:uType of Exam?:Subsequent/Follow-upAdditional signs and symptoms?:. Order Comment: Injur y/Trauma or Illness?:Illness/OtherHow long have you had these symptoms (acute/chronic)?:UnknownReason for exam?:chest tube palcement, pneumothorHistory of cancer?:uSurgeries, chemotherapy, or radiation?:uType of Exam?:InitialAdditional signs and symptoms?:. CALCIUM, IONIZEDon 4 CALCIUM IONIZED 4.4 mg/dL Low 4.5-5.3 [facility] Comment on above: Performed By: #### 4 5190 ####[facility] [address] [place] [address] Glenn Gudino M.D. [id number] CBCon 02-02-2024 AUTO NRBC 0.0 % Normal [facility] Comment on above: Performed By: #### 4 [id number] ####[facility] [address] [place], [place] [address] Glenn Gudino M.D. [id number] AUTO NRBC ABS COUNT 0.00 K/mcL Normal 0.00-0.00 [facility] Comment on above: Performed By: #### 4 [id number] ####[facility] [address] [place] [address] Glenn Gudino M.D. [id number] Erythrocyte distribution width (RBC) [Ratio] 18.9 % High 11.6-14.8 [facility] Comment on above: Performed By: #### 4 [id number] ####[facility] [address] [place] [address] Glenn Gudino M.D. [id number] Hematocrit (Bld) [Volume fraction] 25.0 % Low 36.0-46.0 [facility] Comment on above: Performed By: #### 4 [id number] ####[facility] [address] [place] [address] Glenn Gudino M.D. [id number] Hemoglobin (Bld) [Mass/Vol] 7.9 g/dL Low 12.0-16.0 [facility] Comment on above: Performed By: #### 4 [id number] ####[facility] [address] [place], [place] [address] Glenn Gudino M.D. [id number] MCH (RBC) [Entitic mass] 28.6 pg Normal 26.0-34.0 [facility] Comment on above: Performed By: #### 4 [id number] ####[facility] [address] [place] [address] Glenn Gudino M.D. [id number] MCV (RBC) [Entitic vol] 90.6 fL Normal 80.0-100.0 [facility] Comment on above: Performed By: #### 4 [id number] ####[facility] [address] [place], [place] [address] Glenn Gudino M.D. [id number] MEAN CORPUSCULAR HEMOGLOBIN CONC 31.6 g/dL Normal 31.0-37.0 [facility] Comment on above: Performed By: #### 4 [id number] ####[facility] [address] [place], [place] [address] Glenn Gudino M.D. [id number] Platelet mean volume (Bld) [Entitic vol] 10.2 fL Normal 9.4-12.4 [facility] Comment on above: Performed By: #### 4 [id number] ####[facility] [address] [place], [place] [address] Glenn Gduino M.D. [id number] Platelets (Bld) [#/Vol] 171 10*3/uL Normal 150-400 [facility] Comment on above: Performed By: #### 4 [id number] ####[facility] [address] [place] [address] Glenn Gudino M.D. [id number] RBC (Bld) [#/Vol] 2.76 10*6/uL Low 4.00-5.20 [facility] Comment on above: Performed By: #### 4 [id number] ####[facility] [address] [place] [address] Glenn Gudino M.D. [id number] WBC (Bld) [#/Vol] 12.32 10*3/uL High 4.50-11.00 [facility] Comment on above: Performed By: #### 4 [id number] ####[facility] [address] [place] [address] Glenn Gudino M.D. [id number] AUTO NRBC 0.0 % Normal [facility] Comment on above: Performed By: #### 4 [id number] ####[facility] [address] [place], [place] [address] Glenn Gudino M.D. [id number] AUTO NRBC ABS COUNT 0.00 K/mcL Normal 0.00-0.00 [facility] Comment on above: Performed By: #### 4 [id number] ####[facility] [address] [place] [address] Glenn Gudino M.D. [id number] Erythrocyte distribution width (RBC) [Ratio] 19.0 % High 11.6-14.8 [facility] Comment on above: Performed By: #### 4 [id number] ####[facility] [address] [place] [address] Glenn Gudino M.D. [id number] Hematocrit (Bld) [Volume fraction] 23.5 % Low 36.0-46.0 [facility] Comment on above: Performed By: #### 4 [id number] ####[facility] [address] [place], [place] [address] Glenn Gudino M.D. [id number] Hemoglobin (Bld) [Mass/Vol] 7.4 g/dL Low 12.0-16.0 [facility] Comment on above: Result Comment: Zuleima pheral smear reviewed manually Performed By: #### 4 [id number] ####[facility] [address] [place], [place] [address] Glenn Gudino M.D. [id number] MCH (RBC) [Entitic mass] 27.9 pg Normal 26.0-34.0 [facility] Comment on above: Performed By: #### 4 [id number] ####[facility] [address] [place], [place] [address] Glenn Gudino M.D. [id number] MCV (RBC) [Entitic vol] 88.7 fL Normal 80.0-100.0 [facility] Comment on above: Performed By: #### 4 [id number] ####[facility] [address] [place] [address] Glenn Gudino M.D. [id number] MEAN CORPUSCULAR HEMOGLOBIN CONC 31.5 g/dL Normal 31.0-37.0 [facility] Comment on above: Performed By: #### 4 [id number] ####[facility] [address] [place] [address] Glenn Gudino M.D. [id number] Platelet mean volume (Bld) [Entitic vol] 10.5 fL Normal 9.4-12.4 [facility] Comment on above: Performed By: #### 4 [id number] ####[facility] [address] [place] [address] Glenn Gudino M.D. [id number] Platelets (Bld) [#/Vol] 138 10*3/uL Low 150-400 [facility] Comment on above: Performed By: #### 4 [id number] ####[facility] [address] [place] [address] Glenn Gudino M.D. [id number] RBC (Bld) [#/Vol] 2.65 10*6/uL Low 4.00-5.20 [facility] Comment on above: Performed By: #### 4 5218 ####[facility] [address] [place] [address] Glenn Gudino M.D. [id number] WBC (Bld) [#/Vol] 9.43 10*3/uL Normal 4.50-11.00 [facility] Comment on above: Performed By: #### 4 [id number] ####[facility] [address] [place] [address] Glenn Gudino M.D. [id number] CONSULTon 02-02-2024 CONSULT Normal [facility] CONSULT Normal [facility] CONSULT Normal [facility] CONSULT Normal [facility] CT ANGIOGRAM ABDOMEN PELVISo n 02-02-2024 CT ANGIOGRAM ABDOMEN PELVIS Normal [facility] Comment on above: Order Comment: Injur y/Trauma or Illness?:Illness/OtherHow long have you had these symptoms (acute/chronic)?:AcuteReason for exam?:hemoperitoneum on non con scan, recent RP open AAA repair/EVAR explantType of Exam?:InitialAdditional signs and symptoms?:na CT CHEST ABDOMEN PELVIS WITH OUT CONTRASTon 02-02-2024 CT CHEST ABDOMEN PELVIS WITHOUT CONTRAST Normal [facility] Comment on above: Order Comment: Injur y/Trauma or Illness?:Illness/Otherhematura, pneumothorax/effusion/chyle leak, recent open AAA repair RP approach. eval for ongoing ptx and effussion. eval etiology of hematuria.How long have you had these symptoms (acute/chronic)?:AcuteReason for exam?:hematura, pneumothorax/effusion/chyle leak, recent open AAA repair RP approach. eval for ongoing ptx and effussion. eval etiology of hematuria.Type of Exam?:InitialAdditional signs and symptoms?:hematura, pneumothorax/effusion/chyle leak, recent open AAA repair RP approach. eval for ongoing ptx and effussion. eval etiology of hematuria. MAGNESIUM LEVELon 02-02-2024 Magnesium [Mass/Vol] 2.1 mg/dL Normal 1.6-2.4 [facility] Comment on above: Performed By: #### 4 6109 ####[facility] [address] [place] [address] Glenn Gudino M.D. [id number] POC GLUCOSE - [facility] 024 Glucose [Mass/Vol] 114 mg/dL High [address] [place] [address] Comment on above: Performed By: #### 4 0802 ####[facility] [address] [place] [address] [id number] [facility] Glucose [Mass/Vol] 110 mg/dL High [address] Comment on above: Performed By: #### 4 1577 ####[facility] [address] [place] [address] [id number] [facility] Glucose [Mass/Vol] 113 mg/dL High [address] [place] [address] Comment on above: Performed By: #### 4 6932 ####[facility] [address] [place] [address] [id number] [facility] Glucose [Mass/Vol] 128 mg/dL High [address] [place] [address] Comment on above: Performed By: #### 4 6932 ####[facility] [address] [place] [address] [id number] [facility] Glucose [Mass/Vol] 173 mg/dL High [address] [place] [address] Comment on above: Performed By: #### 4 6932 ####[facility] [address] [place] [address] [id number] [facility] Glucose [Mass/Vol] 82 mg/dL Normal [address] [place] [address] Comment on above: Performed By: #### 4 6932 ####[facility] [address] [place] [address] [id number] [facility] RENAL FUNCTION PANELon 02-01 Albumin [Mass/Vol] 2.3 g/dL Low 3.2-5.2 [facility] Comment on above: Order Comment: [facility] has implemented the eGFR calculation approach that does not have a coefficient for race that conforms to the NKF-ASN Task Force Recommendations. Performed By: #### 4 6449 ####[facility] [address] [place] [address] Glenn Gudino M.D. [id number] Anion gap [Moles/Vol] 14 mmol/L Normal 10-20 [facility] Comment on above: Order Comment: [facility] has implemented the eGFR calculation approach that does not have a coefficient for race that conforms to the NKF-ASN Task Force Recommendations. Performed By: #### 4 6449 ####[facility] [address] [place] [address] Glenn Gudino M.D. [id number] Calcium [Mass/Vol] 7.5 mg/dL Low 8.4-10.2 [facility] Comment on above: Order Comment: [facility] has implemented the eGFR calculation approach that does not have a coefficient for race that conforms to the NKF-ASN Task Force Recommendations. Performed By: #### 4 6449 ####[facility] [address] [place], [place] [address] Glenn Gudino M.D. [id number] Chloride [Moles/Vol] 95 mmol/L Low 98-108 [facility] Comment on above: Order Comment: [facility] has implemented the eGFR calculation approach that does not have a coefficient for race that conforms to the NKF-ASN Task Force Recommendations. Performed By: #### 4 6449 ####[facility] [address] [place], [place] [address] Glenn Gudino M.D. [id number] Creatinine [Mass/Vol] 1.98 mg/dL High 0.60-1.10 [facility] Comment on above: Order Comment: [facility] has implemented the eGFR calculation approach that does not have a coefficient for race that conforms to the NKF-ASN Task Force Recommendations. Performed By: #### 4 6449 ####[facility] [address] [place], [place] [address] Glenn Gudino M.D. [id number] EGFR 28 mL/min/1.73 m2 Low >=60 [facility] Comment on above: Order Comment: [facility] has implemented the eGFR calculation approach that does not have a coefficient for race that conforms to the NKF-ASN Task Force Recommendations. Result Comment: Joi mated GFR was calculated using the 2020 CKD-EPI creatinine equation. Performed By: #### 4 6449 ####[facility] [address] [place], [place] [address] Glenn Gudino M.D. [id number] Glucose [Mass/Vol] 157 mg/dL High 65-99 [facility] Comment on above: Order Comment: [facility] has implemented the eGFR calculation approach that does not have a coefficient for race that conforms to the NKF-ASN Task Force Recommendations. Performed By: #### 4 6449 ####[facility] [address] [place], [place] [address] Glenn Gudino M.D. [id number] HCO3 (Bld) [Moles/Vol] 26 mmol/L Normal 21-32 [facility] Comment on above: Order Comment: [facility] has implemented the eGFR calculation approach that does not have a coefficient for race that conforms to the NKF-ASN Task Force Recommendations. Performed By: #### 4 6449 ####[facility] [address] [place], [place] [address] Glenn Gudino M.D. [id number] Phosphate [Mass/Vol] 2.3 mg/dL Low 2.8-4.1 [facility] Comment on above: Order Comment: [facility] has implemented the eGFR calculation approach that does not have a coefficient for race that conforms to the NKF-ASN Task Force Recommendations. Performed By: #### 4 6449 ####[facility] [address] [place] [address] Glenn Gudino M.D. [id number] Potassium [Moles/Vol] 4.7 mmol/L Normal 3.5-5.1 [facility] Comment on above: Order Comment: [facility] has implemented the eGFR calculation approach that does not have a coefficient for race that conforms to the NKF-ASN Task Force Recommendations. Performed By: #### 4 6449 ####[facility] [address] [place] [address] Glenn Gudino M.D. [id number] Sodium [Moles/Vol] 130 mmol/L Low 135-145 [facility] Comment on above: Order Comment: [facility] has implemented the eGFR calculation approach that does not have a coefficient for race that conforms to the NKF-ASN Task Force Recommendations. Performed By: #### 4 6449 ####[facility] [address] [place], [place] [address] Glenn Gudino M.D. [id number] Urea nitrogen [Mass/Vol] 23 mg/dL Normal 8-25 [facility] Comment on above: Order Comment: [facility] has implemented the eGFR calculation approach that does not have a coefficient for race that conforms to the NKF-ASN Task Force Recommendations. Performed By: #### 4 6449 ####[facility] [address] [place], [place] [address] Glenn Gudino M.D. [id number] Urea nitrogen/Creatinine [Mass ratio] 11.6 mg/mg Normal 10.0-20.0 [facility] Comment on above: Order Comment: [facility] has implemented the eGFR calculation approach that does not have a coefficient for race that conforms to the NKF-ASN Task Force Recommendations. Performed By: #### 4 6449 ####[facility] [address] [place], [place] [address] Glenn Gudino M.D. [id number] XR CHEST PA/APon 02-02-2024 XR CHEST PA/AP Normal [facility] Comment on above: Order Comment: Injur y/Trauma or Illness?:Illness/OtherHow long have you had these symptoms (acute/chronic)?:AcuteReason for exam?:chest tube palcementHistory of cancer?:uSurgeries, chemotherapy, or radiation?:uType of Exam?:UnknownAdditional signs and symptoms?:pneumothorax CALCIUM, IONIZEDon 4 CALCIUM IONIZED 4.4 mg/dL Low 4.5-5.3 [facility] Comment on above: Order Comment: Serum , non-CRRT source. Performed By: #### 4 5190 ####[facility] [address] [place] [address] Glenn Gudino M.D. [id number] CBCon 02-01-2024 AUTO NRBC 0.0 % Normal [facility] Comment on above: Performed By: #### 4 [id number] ####[facility] [address] [place] [address] Glenn Gudino M.D. [id number] AUTO NRBC ABS COUNT 0.00 K/mcL Normal 0.00-0.00 [facility] Comment on above: Performed By: #### 4 [id number] ####[facility] [address] [place] [address] Glenn Gudino M.D. [id number] Erythrocyte distribution width (RBC) [Ratio] 19.1 % High 11.6-14.8 [facility] Comment on above: Performed By: #### 4 5218 ####[facility] [address] [place] [address] Glenn Gudino M.D. [id number] Hematocrit (Bld) [Volume fraction] 25.8 % Low 36.0-46.0 [facility] Comment on above: Performed By: #### 4 [id number] ####[facility] [address] [place], [place] [address]Karma Gudino M.D. [id number] Hemoglobin (Bld) [Mass/Vol] 8.4 g/dL Low 12.0-16.0 [facility] Comment on above: Performed By: #### 4 [id number] ####[facility] [address] [place], [place] [address] Glenn Gudino M.D. [id number] MCH (RBC) [Entitic mass] 28.7 pg Normal 26.0-34.0 [facility] Comment on above: Performed By: #### 4 [id number] ####[facility] [address] [place], [place] [address]Karma Gudino M.D. [id number] MCV (RBC) [Entitic vol] 88.1 fL Normal 80.0-100.0 [facility] Comment on above: Performed By: #### 4 [id number] ####[facility] [address] [place], [place] [address] Glenn Gudino M.D. [id number] MEAN CORPUSCULAR HEMOGLOBIN CONC 32.6 g/dL Normal 31.0-37.0 [facility] Comment on above: Performed By: #### 4 5218 ####[facility] [address] [place], [place] [address] Glenn Gudino M.D. [id number] Platelet mean volume (Bld) [Entitic vol] 10.2 fL Normal 9.4-12.4 [facility] Comment on above: Performed By: #### 4 [id number] ####[facility] [address] [place] [address] Glenn Gudino M.D. [id number] Platelets (Bld) [#/Vol] 109 10*3/uL Low 150-400 [facility] Comment on above: Performed By: #### 4 [id number] ####[facility] [address] [place], [place] [address] Glenn Gudino M.D. [id number] RBC (Bld) [#/Vol] 2.93 10*6/uL Low 4.00-5.20 [facility] Comment on above: Performed By: #### 4 5218 ####[facility] [address] [place] [address] Glenn Gudino M.D. [id number] WBC (Bld) [#/Vol] 10.44 10*3/uL Normal 4.50-11.00 [facility] Comment on above: Performed By: #### 4 5218 ####[facility] [address] [place], [place] [address] Glenn Gudino M.D. [id number] H AND Ney 02-01-2024 H AND P Normal [facility] MAGNESIUM LEVELon 02-01-2024 Magnesium [Mass/Vol] 2.3 mg/dL Normal 1.6-2.4 [facility] Comment on above: Performed By: #### 4 6109 ####[facility] [address] [place] [address] Glenn Gudino M.D. [id number] POC GLUCOSE - [facility] 024 Glucose [Mass/Vol] 151 mg/dL High 65-99 [facility] Comment on above: Performed By: #### 4 6978 ####[facility] [address] [place] [address] [id number] [facility] Glucose [Mass/Vol] 92 mg/dL Normal 65-99 [facility] Comment on above: Performed By: #### 4 6902 ####[facility] [address] [place] [address] [id number] [facility] Glucose [Mass/Vol] 58 mg/dL Low 65-99 [facility] Comment on above: Performed By: #### 4 6996 ####[facility] [address] [place] [address] [id number] [facility] Glucose [Mass/Vol] 97 mg/dL Normal 65-99 [facility] Comment on above: Performed By: #### 4 2687 ####[facility] [address] [place] [address] [id number] [facility] Glucose [Mass/Vol] 62 mg/dL Low 65-99 [facility] Comment on above: Performed By: #### 4 0888 ####[facility] [address] [place] [address] [id number] [facility] Glucose [Mass/Vol] 110 mg/dL High 65-99 [facility] Comment on above: Performed By: #### 4 2652 ####[facility] [address] [address] [id number] [facility] Glucose [Mass/Vol] 117 mg/dL High 65- [facility] Comment on above: Performed By: #### 4 6932 ####[facility] [address] [place] [address] [id number] [facility] Glucose [Mass/Vol] 166 mg/dL High 65- [facility] Comment on above: Performed By: #### 4 6932 ####[facility] [address] [place] [address] [id number] [facility] Glucose [Mass/Vol] 150 mg/dL High 65- [facility] Comment on above: Performed By: #### 4 6932 ####[facility] [address] [place] [address] [id number] [facility] RENAL FUNCTION PANELon 01-31 Albumin [Mass/Vol] 1.8 g/dL Low 3.2-5.2 [facility] Comment on above: Order Comment: [facility] has implemented the eGFR calculation approach that does not have a coefficient for race that conforms to the NKF-ASN Task Force Recommendations. Performed By: #### 4 6449 ####[facility] [address] [place] [address] Glenn Gudino M.D. [id number] Anion gap [Moles/Vol] 11 mmol/L Normal 10-20 [facility] Comment on above: Order Comment: [facility] has implemented the eGFR calculation approach that does not have a coefficient for race that conforms to the NKF-ASN Task Force Recommendations. Performed By: #### 4 6449 ####[facility] [address] [place], [place] [address] Glenn Gudino M.D. [id number] Calcium [Mass/Vol] 7.3 mg/dL Low 8.4-10.2 [facility] Comment on above: Order Comment: [facility] has implemented the eGFR calculation approach that does not have a coefficient for race that conforms to the NKF-ASN Task Force Recommendations. Performed By: #### 4 6449 ####[facility] [address] [place] [address] Glenn Gudino M.D. [id number] Chloride [Moles/Vol] 100 mmol/L Normal 98-108 [facility] Comment on above: Order Comment: [facility] has implemented the eGFR calculation approach that does not have a coefficient for race that conforms to the NKF-ASN Task Force Recommendations. Performed By: #### 4 6449 ####[facility] [address] [place] [address] Glenn Gudino M.D. [id number] Creatinine [Mass/Vol] 2.21 mg/dL High 0.60-1.10 [facility] Comment on above: Order Comment: [facility] has implemented the eGFR calculation approach that does not have a coefficient for race that conforms to the NKF-ASN Task Force Recommendations. Performed By: #### 4 6449 ####[facility] [address] [place] [address] Glenn Gudino M.D. [id number] EGFR 25 mL/min/1.73 m2 Low >=60 [facility] Comment on above: Order Comment: [facility] has implemented the eGFR calculation approach that does not have a coefficient for race that conforms to the NKF-ASN Task Force Recommendations. Result Comment: Joi mated GFR was calculated using the 2020 CKD-EPI creatinine equation. Performed By: #### 4 6449 ####[facility] [address] [place] [address] Glenn Gudino M.D. [id number] Glucose [Mass/Vol] 185 mg/dL High 65-99 [facility] Comment on above: Order Comment: [facility] has implemented the eGFR calculation approach that does not have a coefficient for race that conforms to the NKF-ASN Task Force Recommendations. Performed By: #### 4 6449 ####[facility] [address] [place] [address] Glenn Gudino M.D. [id number] HCO3 (Bld) [Moles/Vol] 27 mmol/L Normal 21-32 [facility] Comment on above: Order Comment: [facility] has implemented the eGFR calculation approach that does not have a coefficient for race that conforms to the NKF-ASN Task Force Recommendations. Performed By: #### 4 6449 ####[facility] [address] [place] [address] Glenn Gudino M.D. [id number] Phosphate [Mass/Vol] 2.7 mg/dL Low 2.8-4.1 [facility] Comment on above: Order Comment: [facility] has implemented the eGFR calculation approach that does not have a coefficient for race that conforms to the NKF-ASN Task Force Recommendations. Performed By: #### 4 6449 ####[facility] [address] [place] [address] Glenn Gudino M.D. [id number] Potassium [Moles/Vol] 5.3 mmol/L High 3.5-5.1 [facility] Comment on above: Order Comment: [facility] has implemented the eGFR calculation approach that does not have a coefficient for race that conforms to the NKF-ASN Task Force Recommendations. Result Comment: Slig htly Hemolyzed Performed By: #### 4 6449 ####[facility] [address] [place], [place] [address] Glenn Gudino M.D. [id number] Sodium [Moles/Vol] 133 mmol/L Low 135-145 [facility] Comment on above: Order Comment: [facility] has implemented the eGFR calculation approach that does not have a coefficient for race that conforms to the NKF-ASN Task Force Recommendations. Performed By: #### 4 6449 ####[facility] [address] [place], [place] [address] Glenn Gudino M.D. [id number] Urea nitrogen [Mass/Vol] 33 mg/dL High 8-25 [facility] Comment on above: Order Comment: [facility] has implemented the eGFR calculation approach that does not have a coefficient for race that conforms to the NKF-ASN Task Force Recommendations. Performed By: #### 4 6449 ####[facility] [address] [place] [address] Glenn Gudino M.D. [id number] Urea nitrogen/Creatinine [Mass ratio] 14.9 mg/mg Normal 10.0-20.0 [facility] Comment on above: Order Comment: [facility] has implemented the eGFR calculation approach that does not have a coefficient for race that conforms to the NKF-ASN Task Force Recommendations. Performed By: #### 4 6449 ####[facility] [address] [place] [address] Glenn Gudino M.D. [id number] XR CHEST PA/APon 02-01-2024 XR CHEST PA/AP [facility] Comment on above: Order Comment: Injur y/Trauma or Illness?:Illness/OtherHow long have you had these symptoms (acute/chronic)?:UnknownReason for exam?:R IJ CVC placementHistory of cancer?:uSurgeries, chemotherapy, or radiation?:uType of Exam?:UnknownAdditional signs and symptoms?:. Order Comment: Injur y/Trauma or Illness?:Illness/OtherHow long have you had these symptoms (acute/chronic)?:AcuteReason for exam?:chest tube palcement, pneumothoraxHistory of cancer?:uSurgeries, chemotherapy, or radiation?:uType of Exam?:InitialAdditional signs and symptoms?:. ANTIBODY IDENTIFICATION-INCo n 01-31-2024 ANTIBODY IDENTIFICATION-INC Normal [facility] Comment on above: Performed By: #### 4 6427_Inconclusive ####[facility] [address] [place] [address] Nurys Oneill MD [id number] RMHTS APTT HEPARIN COVERAGEon aPTT Coag (Bld) [Time] 40 s High 23-34 [facility] Comment on above: Order Comment: Thera peutic range for APTT's is 68 - 104 seconds Result Comment: Resu lts checked. Performed By: #### 4 6848 ####[facility] [address] [place], [place] [address] Glenn Gudino M.D. [id number] aPTT Coag (Bld) [Time] 65 s High 23-34 [facility] Comment on above: Order Comment: Thera peutic range for APTT's is 68 - 104 secondsResults checked. Performed By: #### 4 6848 ####[facility] [address] [place] [address] Glenn Gudino M.D. [id number] BASIC METABOLIC PANELon Anion gap [Moles/Vol] 12 mmol/L Normal 10-20 [facility] Comment on above: Order Comment: [facility] has implemented the eGFR calculation approach that does not have a coefficient for race that conforms to the NKF-ASN Task Force Recommendations. Performed By: #### 4 6124 ####[facility] [address] [place], [place] [address] Glenn Gudino M.D. [id number] Calcium [Mass/Vol] 8.0 mg/dL Low 8.4-10.2 [facility] Comment on above: Order Comment: [facility] has implemented the eGFR calculation approach that does not have a coefficient for race that conforms to the NKF-ASN Task Force Recommendations. Performed By: #### 4 6124 ####[facility] [address] [place], [place] [address] Glenn Gudino M.D. [id number] Chloride [Moles/Vol] 99 mmol/L Normal 98-108 [facility] Comment on above: Order Comment: [facility] has implemented the eGFR calculation approach that does not have a coefficient for race that conforms to the NKF-ASN Task Force Recommendations. Performed By: #### 4 6124 ####[facility] [address] [place] [address] Glenn Gudino M.D. [id number] Creatinine [Mass/Vol] 1.47 mg/dL High 0.60-1.10 [facility] Comment on above: Order Comment: [facility] has implemented the eGFR calculation approach that does not have a coefficient for race that conforms to the NKF-ASN Task Force Recommendations. Performed By: #### 4 6124 ####[facility] [address] [place] [address] Glenn Gudino M.D. [id number] EGFR 40 mL/min/1.73 m2 Low >=60 [facility] Comment on above: Order Comment: [facility] has implemented the eGFR calculation approach that does not have a coefficient for race that conforms to the NKF-ASN Task Force Recommendations. Result Comment: Joi mated GFR was calculated using the 2020 CKD-EPI creatinine equation. Performed By: #### 4 6124 ####[facility] [address] [place] [address] Glenn Gudino M.D. [id number] Glucose [Mass/Vol] 165 mg/dL High 65-99 [facility] Comment on above: Order Comment: [facility] has implemented the eGFR calculation approach that does not have a coefficient for race that conforms to the NKF-ASN Task Force Recommendations. Performed By: #### 4 6124 ####[facility] [address] [place] [address] Glenn Gudino M.D. [id number] HCO3 (Bld) [Moles/Vol] 28 mmol/L Normal 21-32 [facility] Comment on above: Order Comment: [facility] has implemented the eGFR calculation approach that does not have a coefficient for race that conforms to the NKF-ASN Task Force Recommendations. Performed By: #### 4 6124 ####[facility] [address] [place] [address] Glenn Gudino M.D. [id number] Potassium [Moles/Vol] 4.5 mmol/L Normal 3.5-5.1 [facility] Comment on above: Order Comment: [facility] has implemented the eGFR calculation approach that does not have a coefficient for race that conforms to the NKF-ASN Task Force Recommendations. Performed By: #### 4 6124 ####[facility] [address] [place] [address] Glenn Gudino M.D. [id number] Sodium [Moles/Vol] 134 mmol/L Low 135-145 [facility] Comment on above: Order Comment: [facility] has implemented the eGFR calculation approach that does not have a coefficient for race that conforms to the NKF-ASN Task Force Recommendations. Performed By: #### 4 6124 ####[facility] [address] [place] [address] Glenn Gudino M.D. [id number] Urea nitrogen [Mass/Vol] 23 mg/dL Normal 8-25 [facility] Comment on above: Order Comment: [facility] has implemented the eGFR calculation approach that does not have a coefficient for race that conforms to the NKF-ASN Task Force Recommendations. Performed By: #### 4 6124 ####[facility] [address] [place] [address] 168[address] Glenn Gudino M.D. [id number] Urea nitrogen/Creatinine [Mass ratio] 15.6 mg/mg Normal 10.0-20.0 [facility] Comment on above: Order Comment: [facility] has implemented the eGFR calculation approach that does not have a coefficient for race that conforms to the NKF-ASN Task Force Recommendations. Performed By: #### 4 6124 ####[facility] [address] [place], [place] [address] Gelnn Gudino M.D. [id number] CALCIUM, IONIZEDon CALCIUM IONIZED 4.9 mg/dL Normal 4.5-5.3 [facility] Comment on above: Performed By: #### 4 5190 ####[facility] [address] [place], [place] [address] Glenn Gudino M.D. [id number] CALCIUM IONIZED 4.5 mg/dL Normal 4.5-5.3 [facility] Comment on above: Order Comment: Serum , non-CRRT source. Performed By: #### 4 5190 ####[facility] [address] [place] [address] Glenn Gudino M.D. [id number] CBCon 01-31-2024 AUTO NRBC 0.0 % Normal [facility] Comment on above: Performed By: #### 4 5218 ####[facility] [address] [place], [place] [address] Glenn uGdino M.D. [id number] AUTO NRBC ABS COUNT 0.00 K/mcL Normal 0.00-0.00 [facility] Comment on above: Performed By: #### 4 5218 ####[facility] [address] [place], [place] [address] Glenn Gudino M.D. [id number] Erythrocyte distribution width (RBC) [Ratio] 18.7 % High 11.6-14.8 [facility] Comment on above: Performed By: #### 4 5218 ####[facility] [address] [place], [place] [address] Glenn Gudino M.D. [id number] Hematocrit (Bld) [Volume fraction] 26.9 % Low 36.0-46.0 [facility] Comment on above: Result Comment: Resu lts checked Performed By: #### 4 5218 ####[facility] [address] [place], [place] [address] lGenn Gudino M.D. [id number] Hemoglobin (Bld) [Mass/Vol] 9.0 g/dL Low 12.0-16.0 [facility] Comment on above: Result Comment: Resu lts checked Performed By: #### 4 5218 ####[facility] [address] [place] [address] Glenn Gudino M.D. [id number] MCH (RBC) [Entitic mass] 28.6 pg Normal 26.0-34.0 [facility] Comment on above: Performed By: #### 4 [id number] ####[facility] [address] [place] [address] Glenn Gudino M.D. [id number] MCV (RBC) [Entitic vol] 85.4 fL Normal 80.0-100.0 [facility] Comment on above: Result Comment: Resu lts checked Performed By: #### 4 5218 ####[facility] [address] [place], [place] [address] Glenn Gudino M.D. [id number] MEAN CORPUSCULAR HEMOGLOBIN CONC 33.5 g/dL Normal 31.0-37.0 [facility] Comment on above: Performed By: #### 4 5218 ####[facility] [address] [place], [place] [address] Glenn Gudino M.D. [id number] Platelet mean volume (Bld) [Entitic vol] 9.9 fL Normal 9.4-12.4 [facility] Comment on above: Performed By: #### 4 [id number] ####[facility] [address] [place], [place] [address] Glenn Gudino M.D. [id number] Platelets (Bld) [#/Vol] 103 10*3/uL Low 150-400 [facility] Comment on above: Performed By: #### 4 [id number] ####[facility] [address] [place], [place] [address] Glenn Gudino M.D. [id number] RBC (Bld) [#/Vol] 3.15 10*6/uL Low 4.00-5.20 [facility] Comment on above: Performed By: #### 4 5218 ####[facility] [address] [place] [address] Glenn Guidno M.D. [id number] WBC (Bld) [#/Vol] 11.27 10*3/uL High 4.50-11.00 [facility] Comment on above: Performed By: #### 4 [id number] ####[facility] [address] [place] [address] Glenn Gudino M.D. [id number] AUTO NRBC 0.0 % Normal [facility] Comment on above: Performed By: #### 4 5218 ####[facility] [address] [place], [place] [address] Glenn Gudino M.D. [id number] AUTO NRBC ABS COUNT 0.00 K/mcL Normal 0.00-0.00 [facility] Comment on above: Performed By: #### 4 5218 ####[facility] [address] [place], [place] [address] Glenn Gudino M.D. [id number] Erythrocyte distribution width (RBC) [Ratio] 15.9 % High 11.6-14.8 [facility] Comment on above: Performed By: #### 4 [id number] ####[facility] [address] [place] [address] Glenn Gudino M.D. [id number] Hematocrit (Bld) [Volume fraction] 19.9 % Low 36.0-46.0 [facility] Comment on above: Performed By: #### 4 [id number] ####[facility] [address] [place], [place] [address] Glenn Gudino M.D. [id number] Hemoglobin (Bld) [Mass/Vol] 6.4 g/dL Off scale low 12.0-16.0 [facility] Comment on above: Result Comment: Resu lts called and read back verified by:.[email or web address] [email or web address] [id number] Performed By: #### 4 5218 ####[facility] [address] [place] [address] Glenn Gudino M.D. [id number] MCH (RBC) [Entitic mass] 30.2 pg Normal 26.0-34.0 [facility] Comment on above: Performed By: #### 4 [id number] ####[facility] [address] [place] [address] Glenn Gudino M.D. [id number] MCV (RBC) [Entitic vol] 93.9 fL Normal 80.0-100.0 [facility] Comment on above: Performed By: #### 4 [id number] ####[facility] [address] [place], [place] [address] Glenn Gudino M.D. [id number] MEAN CORPUSCULAR HEMOGLOBIN CONC 32.2 g/dL Normal 31.0-37.0 [facility] Comment on above: Performed By: #### 4 5218 ####[facility] [address] [place], [place] [address] Glenn Gudino M.D. [id number] Platelet mean volume (Bld) [Entitic vol] 10.7 fL Normal 9.4-12.4 [facility] Comment on above: Performed By: #### 4 [id number] ####[facility] [address] [place], [place] [address] Glenn Gudino M.D. [id number] Platelets (Bld) [#/Vol] 104 10*3/uL Low 150-400 [facility] Comment on above: Performed By: #### 4 [id number] ####[facility] [address] [place], [place] [address] Glenn Gudino M.D. [id number] RBC (Bld) [#/Vol] 2.12 10*6/uL Low 4.00-5.20 [facility] Comment on above: Performed By: #### 4 5218 ####[facility] [address] [place] [address] Glenn Gudino M.D. [id number] WBC (Bld) [#/Vol] 9.91 10*3/uL Normal 4.50-11.00 [facility] Comment on above: Performed By: #### 4 5218 ####[facility] [address] [place] [address] Glenn Gudino M.D. [id number] AUTO NRBC 0.0 % Normal [facility] Comment on above: Performed By: #### 4 5218 ####[facility] [address] [place], [place] [address] Glenn Gudino M.D. [id number] AUTO NRBC ABS COUNT 0.00 K/mcL Normal 0.00-0.00 [facility] Comment on above: Performed By: #### 4 5218 ####[facility] [address] [place], [place] [address] Glenn Gudino M.D. [id number] Erythrocyte distribution width (RBC) [Ratio] 16.0 % High 11.6-14.8 [facility] Comment on above: Performed By: #### 4 5218 ####[facility] [address] [place], [place] [address] Glenn Gudino M.D. [id number] Hematocrit (Bld) [Volume fraction] 21.4 % Low 36.0-46.0 [facility] Comment on above: Performed By: #### 4 5296 ####[facility] [address] [place], [place] [address] Glenn Gudino M.D. [id number] Hemoglobin (Bld) [Mass/Vol] 6.9 g/dL Off scale low 12.0-16.0 [facility] Comment on above: Result Comment: Resu lts called and read back verified by:.[id number]. Performed By: #### 4 5218 ####[facility] [address] [place] [address] Glenn Gudino M.D. [id number] MCH (RBC) [Entitic mass] 30.0 pg Normal 26.0-34.0 [facility] Comment on above: Performed By: #### 4 5218 ####[facility] [address] [place] [address] Glenn Gudino M.D. [id number] MCV (RBC) [Entitic vol] 93.0 fL Normal 80.0-100.0 [facility] Comment on above: Performed By: #### 4 5218 ####[facility] [address] [place], [place] [address] Glenn Gudino M.D. [id number] MEAN CORPUSCULAR HEMOGLOBIN CONC 32.2 g/dL Normal 31.0-37.0 [facility] Comment on above: Performed By: #### 4 5218 ####[facility] [address] [place], [place] [address] Glenn Gudino M.D. [id number] Platelet mean volume (Bld) [Entitic vol] 10.4 fL Normal 9.4-12.4 [facility] Comment on above: Performed By: #### 4 [id number] ####[facility] [address] [place], [place] [address] Glenn Gudino M.D. [id number] Platelets (Bld) [#/Vol] 116 10*3/uL Low 150-400 [facility] Comment on above: Result Comment: Resu lts checked Performed By: #### 4 [id number] ####[facility] [address] [place] [address] Glenn Gudino M.D. [id number] RBC (Bld) [#/Vol] 2.30 10*6/uL Low 4.00-5.20 [facility] Comment on above: Performed By: #### 4 5218 ####[facility] [address] [place] [address] Glenn Gudino M.D. [id number] WBC (Bld) [#/Vol] 8.81 10*3/uL Normal 4.50-11.00 [facility] Comment on above: Performed By: #### 4 5218 ####[facility] [address] [place] [address]9950 Glenn Gudino M.D. [id number] CLOSTRIDIOIDES DIFFICILE MENG TINGon 01-31-2024 CLOSTRIDIOIDES DIFFICILE TESTING TOXIGENIC C. DIFFICILE BY PCR DETECTED Toxigenic C. difficile detected in stool. Correlation of test results with patient clinical symptoms is suggested. Young children <3 years of age have an asymptomatic carriage rate as high as 40%. Abnormal [facility] Comment on above: Performed By: #### 4 8543 ####[facility] [address] [place] [address]64 Glenn Gudino M.D. [id number] CONSULTon 01-31-2024 CONSULT Normal [facility] CV IR DIALYSIS CATHETER INSE RTION TUNNELEDon 01-31-2024 CV IR DIALYSIS CATHETER INSERTION TUNNELED Normal [facility] MAGNESIUM LEVELon 01-31-2024 Magnesium [Mass/Vol] 1.9 mg/dL Normal 1.6-2.4 [facility] Comment on above: Performed By: #### 4 6109 ####[facility] [address] [place] [address] Glenn Gudino M.D. [id number] Magnesium [Mass/Vol] 1.8 mg/dL Normal 1.6-2.4 [facility] Comment on above: Performed By: #### 4 6109 ####[facility] [address] [place] [address] Glenn Gudino M.D. [id number] Magnesium [Mass/Vol] 1.8 mg/dL Normal 1.6-2.4 [facility] Comment on above: Performed By: #### 4 6109 ####[facility] [address] [place] [address] Glenn Gudino M.D. [id number] PHOSPHORUSon 01-31-2024 Phosphate [Mass/Vol] 1.9 mg/dL Low 2.8-4.1 [facility] Comment on above: Performed By: #### 4 6299 ####[facility] [address] [place] [address] Glenn Gudino M.D. [id number] POC GLUCOSE - [facility] 024 Glucose [Mass/Vol] 158 mg/dL High -[address] [place] [address] Comment on above: Performed By: #### 4 6910 ####[facility] [address] [place] [address] [id number] RMHPOC Glucose [Mass/Vol] 113 mg/dL High 65-99 [facility] Comment on above: Performed By: #### 4 1274 ####[facility] [address] [place] [address] [id number] RMHPOC Glucose [Mass/Vol] 97 mg/dL Normal 65-99 [facility] Comment on above: Performed By: #### 4 6700 ####[facility] [address] [place] [address] [id number] RMHPOC Glucose [Mass/Vol] 134 mg/dL High 65-99 [facility] Comment on above: Performed By: #### 4 3032 ####[facility] [address] [place] [address] [id number] RMHPOC Glucose [Mass/Vol] 68 mg/dL Normal 65-99 [facility] Comment on above: Performed By: #### 4 6932 ####[facility] [address] [place] [address] [id number] RMHPOC Glucose [Mass/Vol] 157 mg/dL High 65- [facility] Comment on above: Performed By: #### 4 6932 ####[facility] [address] [place] [address] [id number] RMHPOC Glucose [Mass/Vol] 117 mg/dL High 65- [facility] Comment on above: Performed By: #### 4 6932 ####[facility] [address] [place] [address] [id number] RMHPOC RENAL FUNCTION PANELon 01-30 Albumin [Mass/Vol] 2.4 g/dL Low 3.2-5.2 [facility] Comment on above: Order Comment: [facility] has implemented the eGFR calculation approach that does not have a coefficient for race that conforms to the NKF-ASN Task Force Recommendations. Performed By: #### 4 6449 ####[facility] [address] [place] [address] Glenn Gudino M.D. [id number] Anion gap [Moles/Vol] 11 mmol/L Normal 10-20 [facility] Comment on above: Order Comment: [facility] has implemented the eGFR calculation approach that does not have a coefficient for race that conforms to the NKF-ASN Task Force Recommendations. Performed By: #### 4 6449 ####[facility] [address] [place] [address] Glenn Gudino M.D. [id number] Calcium [Mass/Vol] 7.2 mg/dL Low 8.4-10.2 [facility] Comment on above: Order Comment: [facility] has implemented the eGFR calculation approach that does not have a coefficient for race that conforms to the NKF-ASN Task Force Recommendations. Performed By: #### 4 6449 ####[facility] [address] [place] [address] Glenn Gudino M.D. [id number] Chloride [Moles/Vol] 100 mmol/L Normal 98-108 [facility] Comment on above: Order Comment: [facility] has implemented the eGFR calculation approach that does not have a coefficient for race that conforms to the NKF-ASN Task Force Recommendations. Performed By: #### 4 6449 ####[facility] [address] [place] [address] Glenn Gudino M.D. [id number] Creatinine [Mass/Vol] 1.17 mg/dL Normal 0.60-1.10 [facility] Comment on above: Order Comment: [facility] has implemented the eGFR calculation approach that does not have a coefficient for race that conforms to the NKF-ASN Task Force Recommendations. Performed By: #### 4 6449 ####[facility] [address] [place] [address]600 Glenn Gudino M.D. [id number] EGFR 53 mL/min/1.73 m2 Low >=60 [facility] Comment on above: Order Comment: [facility] has implemented the eGFR calculation approach that does not have a coefficient for race that conforms to the NKF-ASN Task Force Recommendations. Result Comment: Joi mated GFR was calculated using the 2020 CKD-EPI creatinine equation. Performed By: #### 4 6449 ####[facility] [address] [place] [address]17 Glenn Gudino M.D. [id number] Glucose [Mass/Vol] 160 mg/dL High 65-99 [facility] Comment on above: Order Comment: [facility] has implemented the eGFR calculation approach that does not have a coefficient for race that conforms to the NKF-ASN Task Force Recommendations. Performed By: #### 4 6449 ####[facility] [address] [place] [address] 14166 Glenn Gudino M.D. [id number] HCO3 (Bld) [Moles/Vol] 30 mmol/L Normal 21-32 [facility] Comment on above: Order Comment: [facility] has implemented the eGFR calculation approach that does not have a coefficient for race that conforms to the NKF-ASN Task Force Recommendations. Performed By: #### 4 6449 ####[facility] [address] [place] [address] Glenn Gudino M.D. [id number] Phosphate [Mass/Vol] 1.4 mg/dL Low 2.8-4.1 [facility] Comment on above: Order Comment: [facility] has implemented the eGFR calculation approach that does not have a coefficient for race that conforms to the NKF-ASN Task Force Recommendations. Performed By: #### 4 6449 ####[facility] [address] [place] [address] 23338 Glenn Gudino M.D. [id number] Potassium [Moles/Vol] 4.1 mmol/L Normal 3.5-5.1 [facility] Comment on above: Order Comment: [facility] has implemented the eGFR calculation approach that does not have a coefficient for race that conforms to the NKF-ASN Task Force Recommendations. Performed By: #### 4 6449 ####[facility] [address] [place] [address] 63866 Glenn Gudino M.D. [id number] Sodium [Moles/Vol] 137 mmol/L Normal 135-145 [facility] Comment on above: Order Comment: [facility] has implemented the eGFR calculation approach that does not have a coefficient for race that conforms to the NKF-ASN Task Force Recommendations. Performed By: #### 4 6449 ####[facility] [address] [place] [address] 07755 Glenn Gudino M.D. [id number] Urea nitrogen [Mass/Vol] 17 mg/dL Normal 8-25 [facility] Comment on above: Order Comment: [facility] has implemented the eGFR calculation approach that does not have a coefficient for race that conforms to the NKF-ASN Task Force Recommendations. Performed By: #### 4 6449 ####[facility] [address] [place], [place] [address] Glenn Gudino M.D. [id number] Urea nitrogen/Creatinine [Mass ratio] 14.5 mg/mg Normal 10.0-20.0 [facility] Comment on above: Order Comment: [facility] has implemented the eGFR calculation approach that does not have a coefficient for race that conforms to the NKF-ASN Task Force Recommendations. Performed By: #### 4 6449 ####[facility] [address] [place], [place] [address] Glenn Gudino M.D. [id number] TYPE AND SCREENon 01-31-2024 TYPE AND SCREEN ABORH: O Positive AB SCREEN: Positive EXPIRATION DATE: 02/03/2024 23:[address] [facility] Comment on above: Performed By: #### 4 6619 ####[facility] [address] [place] [address] Nurys Oneill MD [id number] HTS XR CHEST PA/APon 01-31-2024 XR CHEST PA/AP [facility] Comment on above: Order Comment: Injur y/Trauma or Illness?:Illness/OtherHow long have you had these symptoms (acute/chronic)?:AcuteReason for exam?:chest tube palcement, pneumothoraxHistory of cancer?:uSurgeries, chemotherapy, or radiation?:uType of Exam?:Subsequent/Follow-upAdditional signs and symptoms?:chest tube palcement, pneumothorax APTT HEPARIN COVERAGEon aPTT Coag (Bld) [Time] 88 s High 23-34 [facility] Comment on above: Order Comment: Thera peutic range for APTT's is 68 - 104 seconds Performed By: #### 4 6848 ####[facility] [address] [place], [place] [address] Glenn Gudino M.D. [id number] CALCIUM, IONIZEDon CALCIUM IONIZED 4.4 mg/dL Low 4.5-5.3 [facility] Comment on above: Order Comment: Serum , non-CRRT source. Performed By: #### 4 5190 ####[facility] [address] [place] [address] Glenn Gudino M.D. [id number] CBCon 01-30-2024 AUTO NRBC 0.0 % Normal [facility] Comment on above: Performed By: #### 4 [id number] ####[facility] [address] [place] [address] Glenn Gudino M.D. [id number] AUTO NRBC ABS COUNT 0.00 K/mcL Normal 0.00-0.00 [facility] Comment on above: Performed By: #### 4 [id number] ####[facility] [address] [place], [place] [address] Glenn Gudino M.D. [id number] Erythrocyte distribution width (RBC) [Ratio] 16.0 % High 11.6-14.8 [facility] Comment on above: Performed By: #### 4 [id number] ####[facility] [address] [place], [place] [address] Glenn Gudino M.D. [id number] Hematocrit (Bld) [Volume fraction] 23.2 % Low 36.0-46.0 [facility] Comment on above: Performed By: #### 4 [id number] ####[facility] [address] [place], [place] [address] Glenn Gudino M.D. [id number] Hemoglobin (Bld) [Mass/Vol] 7.5 g/dL Low 12.0-16.0 [facility] Comment on above: Performed By: #### 4 [id number] ####[facility] [address] [place] [address] Glenn Gudino M.D. [id number] MCH (RBC) [Entitic mass] 29.5 pg Normal 26.0-34.0 [facility] Comment on above: Performed By: #### 4 [id number] ####[facility] [address] [place] [address] Glenn Gudino M.D. [id number] MCV (RBC) [Entitic vol] 91.3 fL Normal 80.0-100.0 [facility] Comment on above: Performed By: #### 4 [id number] ####[facility] [address] [place] [address] Glenn Gudino M.D. [id number] MEAN CORPUSCULAR HEMOGLOBIN CONC 32.3 g/dL Normal 31.0-37.0 [facility] Comment on above: Performed By: #### 4 [id number] ####[facility] [address] [place] [address] Glenn Gudino M.D. [id number] Platelet mean volume (Bld) [Entitic vol] 10.2 fL Normal 9.4-12.4 [facility] Comment on above: Performed By: #### 4 [id number] ####[facility] [address] [place] [address] Glenn Gudino M.D. [id number] Platelets (Bld) [#/Vol] 106 10*3/uL Low 150-400 [facility] Comment on above: Result Comment: Resu lts checked Performed By: #### 4 [id number] ####[facility] [address] [place] [address] Glenn Gudino M.D. [id number] RBC (Bld) [#/Vol] 2.54 10*6/uL Low 4.00-5.20 [facility] Comment on above: Performed By: #### 4 [id number] ####[facility] [address] [place] [address] 67267 Glenn Gudino M.D. [id number] WBC (Bld) [#/Vol] 11.63 10*3/uL High 4.50-11.00 [facility] Comment on above: Performed By: #### 4 [id number] ####[facility] [address] [place], [place] [address] Glenn Gudino M.D. [id number] HEMOGLOBIN AND HEMATOCRITon 01-30-2024 Hematocrit (Bld) [Volume fraction] 26.4 % Low 36.0-46.0 [facility] Comment on above: Performed By: #### 4 6909 ####[facility] [address] [place], [place] [address] Glenn Gudino M.D. [id number] Hemoglobin (Bld) [Mass/Vol] 8.8 g/dL Low 12.0-16.0 [facility] Comment on above: Performed By: #### 4 6909 ####[facility] [address] [place] [address] 63087 Glenn Gudino M.D. [id number] MAGNESIUM LEVELon 01-30-2024 Magnesium [Mass/Vol] 2.0 mg/dL Normal 1.6-2.4 [facility] Comment on above: Performed By: #### 4 6109 ####[facility] [address] [place], [place] [address] Glenn Gudino M.D. [id number] POC GLUCOSE - [facility] 024 Glucose [Mass/Vol] 165 mg/dL High 65-99 [facility] Comment on above: Performed By: #### 4 6932 ####[facility] [address] [place] [address] [id number] [facility] Glucose [Mass/Vol] 137 mg/dL High [address] [place] [address] Comment on above: Performed By: #### 4 6932 ####[facility] [address] [place] [address] [id number] [facility] Glucose [Mass/Vol] 129 mg/dL High [address] [place] [address] Comment on above: Performed By: #### 4 6932 ####[facility] [address] [place] [address] [id number] [facility] Glucose [Mass/Vol] 159 mg/dL High [address] [place] [address] Comment on above: Performed By: #### 4 6932 ####[facility] [address] [place] [address] [id number] [facility] Glucose [Mass/Vol] 151 mg/dL [address] Comment on above: Performed By: #### 4 6932 ####[facility] [address] [place] [address] [id number] [facility] Glucose [Mass/Vol] 157 mg/dL High [address] [place] [address] Comment on above: Performed By: #### 4 6932 ####[facility] [address] [place] [address] [id number] [facility] RENAL FUNCTION PANELon 01-29 Albumin [Mass/Vol] 2.1 g/dL Low 3.2-5.2 [facility] Comment on above: Order Comment: [facility] has implemented the eGFR calculation approach that does not have a coefficient for race that conforms to the NKF-ASN Task Force Recommendations. Performed By: #### 4 6449 ####[facility] [address] [place] [address] Glenn Gudino M.D. [id number] Anion gap [Moles/Vol] 11 mmol/L Normal 10-20 [facility] Comment on above: Order Comment: [facility] has implemented the eGFR calculation approach that does not have a coefficient for race that conforms to the NKF-ASN Task Force Recommendations. Performed By: #### 4 6449 ####[facility] [address] [place] [address] 76651 Glenn Gudino M.D. [id number] Calcium [Mass/Vol] 7.3 mg/dL Low 8.4-10.2 [facility] Comment on above: Order Comment: [facility] has implemented the eGFR calculation approach that does not have a coefficient for race that conforms to the NKF-ASN Task Force Recommendations. Performed By: #### 4 6449 ####[facility] [address] [place] [address] 25381 Glenn Gudino M.D. [id number] Chloride [Moles/Vol] 102 mmol/L Normal 98-108 [facility] Comment on above: Order Comment: [facility] has implemented the eGFR calculation approach that does not have a coefficient for race that conforms to the NKF-ASN Task Force Recommendations. Performed By: #### 4 6449 ####[facility] [address] [place] [address] 14350 Glenn Gudino M.D. [id number] Creatinine [Mass/Vol] 2.40 mg/dL High 0.60-1.10 [facility] Comment on above: Order Comment: [facility] has implemented the eGFR calculation approach that does not have a coefficient for race that conforms to the NKF-ASN Task Force Recommendations. Performed By: #### 4 6449 ####[facility] [address] [place] [address] 68148 Glenn Gudino M.D. [id number] EGFR 22 mL/min/1.73 m2 Low >=60 [facility] Comment on above: Order Comment: [facility] has implemented the eGFR calculation approach that does not have a coefficient for race that conforms to the NKF-ASN Task Force Recommendations. Result Comment: Joi mated GFR was calculated using the 2020 CKD-EPI creatinine equation. Performed By: #### 4 6449 ####[facility] [address] [place] [address] 72264 Glenn Gudino M.D. [id number] Glucose [Mass/Vol] 139 mg/dL High 65-99 [facility] Comment on above: Order Comment: [facility] has implemented the eGFR calculation approach that does not have a coefficient for race that conforms to the NKF-ASN Task Force Recommendations. Performed By: #### 4 6449 ####[facility] [address] [place] [address] 93010 Glenn Gudino M.D. [id number] HCO3 (Bld) [Moles/Vol] 28 mmol/L Normal 21-32 [facility] Comment on above: Order Comment: [facility] has implemented the eGFR calculation approach that does not have a coefficient for race that conforms to the NKF-ASN Task Force Recommendations. Performed By: #### 4 6449 ####[facility] [address] [place] [address] 20083 Glenn Gudino M.D. [id number] Phosphate [Mass/Vol] 2.8 mg/dL Normal 2.8-4.1 [facility] Comment on above: Order Comment: [facility] has implemented the eGFR calculation approach that does not have a coefficient for race that conforms to the NKF-ASN Task Force Recommendations. Performed By: #### 4 6449 ####[facility] [address] [place] [address] 78410 Glenn Gudino M.D. [id number] Potassium [Moles/Vol] 5.1 mmol/L Normal 3.5-5.1 [facility] Comment on above: Order Comment: [facility] has implemented the eGFR calculation approach that does not have a coefficient for race that conforms to the NKF-ASN Task Force Recommendations. Result Comment: Slig htly Hemolyzed Performed By: #### 4 6449 ####[facility] [address] [place] [address] 96411 Glenn Gudino M.D. [id number] Sodium [Moles/Vol] 136 mmol/L Normal 135-145 [facility] Comment on above: Order Comment: [facility] has implemented the eGFR calculation approach that does not have a coefficient for race that conforms to the NKF-ASN Task Force Recommendations. Performed By: #### 4 6449 ####[facility] [address] [place] [address] 88735 Glenn Gudino M.D. [id number] Urea nitrogen [Mass/Vol] 36 mg/dL High 8-25 [facility] Comment on above: Order Comment: [facility] has implemented the eGFR calculation approach that does not have a coefficient for race that conforms to the NKF-ASN Task Force Recommendations. Performed By: #### 4 6449 ####[facility] [address] [place], [place] [address] Glenn Gudino M.D. [id number] Urea nitrogen/Creatinine [Mass ratio] 15.0 mg/mg Normal 10.0-20.0 [facility] Comment on above: Order Comment: [facility] has implemented the eGFR calculation approach that does not have a coefficient for race that conforms to the NKF-ASN Task Force Recommendations. Performed By: #### 4 6449 ####[facility] [address] [place] [address] 62280 Glenn Gudino M.D. [id number] Albumin [Mass/Vol] 2.1 g/dL Low 3.2-5.2 [facility] Comment on above: Order Comment: [facility] has implemented the eGFR calculation approach that does not have a coefficient for race that conforms to the NKF-ASN Task Force Recommendations. Performed By: #### 4 6449 ####[facility] [address] [place] [address] 75627 Glenn Gudino M.D. [id number] Anion gap [Moles/Vol] 12 mmol/L Normal 10-20 [facility] Comment on above: Order Comment: [facility] has implemented the eGFR calculation approach that does not have a coefficient for race that conforms to the NKF-ASN Task Force Recommendations. Performed By: #### 4 6449 ####[facility] [address] [place] [address] 58457 Glenn Gudino M.D. [id number] Calcium [Mass/Vol] 7.5 mg/dL Low 8.4-10.2 [facility] Comment on above: Order Comment: [facility] has implemented the eGFR calculation approach that does not have a coefficient for race that conforms to the NKF-ASN Task Force Recommendations. Performed By: #### 4 6449 ####[facility] [address] [place], [place] [address] Glenn Gudino M.D. [id number] Chloride [Moles/Vol] 99 mmol/L Normal 98-108 [facility] Comment on above: Order Comment: [facility] has implemented the eGFR calculation approach that does not have a coefficient for race that conforms to the NKF-ASN Task Force Recommendations. Performed By: #### 4 6449 ####[facility] [address] [place] [address] 72674 Glenn Gudino M.D. [id number] Creatinine [Mass/Vol] 2.02 mg/dL High 0.60-1.10 [facility] Comment on above: Order Comment: [facility] has implemented the eGFR calculation approach that does not have a coefficient for race that conforms to the NKF-ASN Task Force Recommendations. Performed By: #### 4 6449 ####[facility] [address] [place], [place] [address] Glenn Gudino M.D. [id number] EGFR 28 mL/min/1.73 m2 Low >=60 [facility] Comment on above: Order Comment: [facility] has implemented the eGFR calculation approach that does not have a coefficient for race that conforms to the NKF-ASN Task Force Recommendations. Result Comment: Joi mated GFR was calculated using the 2020 CKD-EPI creatinine equation. Performed By: #### 4 6449 ####[facility] [address] [place] [address] 02479 Glenn Gudino M.D. [id number] Glucose [Mass/Vol] 150 mg/dL High 65-99 [facility] Comment on above: Order Comment: [facility] has implemented the eGFR calculation approach that does not have a coefficient for race that conforms to the NKF-ASN Task Force Recommendations. Performed By: #### 4 6449 ####[facility] [address] [place], [place] [address] Glenn Gudino M.D. [id number] HCO3 (Bld) [Moles/Vol] 27 mmol/L Normal 21-32 [facility] Comment on above: Order Comment: [facility] has implemented the eGFR calculation approach that does not have a coefficient for race that conforms to the NKF-ASN Task Force Recommendations. Performed By: #### 4 6449 ####[facility] [address] [place] [address] 83849 Glenn Gudino M.D. [id number] Phosphate [Mass/Vol] 2.6 mg/dL Low 2.8-4.1 [facility] Comment on above: Order Comment: [facility] has implemented the eGFR calculation approach that does not have a coefficient for race that conforms to the NKF-ASN Task Force Recommendations. Performed By: #### 4 6449 ####[facility] [address] [place] [address] 13831 Glenn Gudino M.D. [id number] Potassium [Moles/Vol] 4.3 mmol/L Normal 3.5-5.1 [facility] Comment on above: Order Comment: [facility] has implemented the eGFR calculation approach that does not have a coefficient for race that conforms to the NKF-ASN Task Force Recommendations. Performed By: #### 4 6449 ####[facility] [address] [place] [address] 65744 Glenn Gudino M.D. [id number] Sodium [Moles/Vol] 134 mmol/L Low 135-145 [facility] Comment on above: Order Comment: [facility] has implemented the eGFR calculation approach that does not have a coefficient for race that conforms to the NKF-ASN Task Force Recommendations. Performed By: #### 4 6449 ####[facility] [address] [place] [address] 32179 Glenn Gudino M.D. [id number] Urea nitrogen [Mass/Vol] 28 mg/dL High 8-25 [facility] Comment on above: Order Comment: [facility] has implemented the eGFR calculation approach that does not have a coefficient for race that conforms to the NKF-ASN Task Force Recommendations. Performed By: #### 4 6449 ####[facility] [address] [place] [address] 17241 Glenn Gudino M.D. [id number] Urea nitrogen/Creatinine [Mass ratio] 13.9 mg/mg Normal 10.0-20.0 [facility] Comment on above: Order Comment: [facility] has implemented the eGFR calculation approach that does not have a coefficient for race that conforms to the NKF-ASN Task Force Recommendations. Performed By: #### 4 6449 ####[facility] [address] [place] [address] 48446 Glenn Gudino M.D. [id number] XR CHEST PA/APon 01-30-2024 XR CHEST PA/AP Normal [facility] Comment on above: Order Comment: Injur y/Trauma or Illness?:Illness/OtherHow long have you had these symptoms (acute/chronic)?:AcuteReason for exam?:chest tube palcement, pneumothoraxHistory of cancer?:uSurgeries, chemotherapy, or radiation?:uType of Exam?:Subsequent/Follow-upAdditional signs and symptoms?:chest tube palcement, pneumothorax APTT HEPARIN COVERAGEon aPTT Coag (Bld) [Time] 90 s High 23-34 [facility] Comment on above: Order Comment: Thera peutic range for APTT's is 68 - 104 seconds Performed By: #### 4 [id number] ####[facility] [address] [place] [address] Glenn Gudino M.D. [id number] aPTT Coag (Bld) [Time] 93 s High 23-34 [facility] Comment on above: Order Comment: Thera peutic range for APTT's is 68 - 104 seconds Result Comment: Resu lts checked. Performed By: #### 4 [id number] ####[facility] [address] [place] [address] Glenn Gudino M.D. [id number] aPTT Coag (Bld) [Time] 66 s High 23-34 [facility] Comment on above: Order Comment: Thera peutic range for APTT's is 68 - 104 seconds Performed By: #### 4 [id number] ####[facility] [address] [place] [address] Glenn Gudino M.D. [id number] aPTT Coag (Bld) [Time] 54 s High 23-34 [facility] Comment on above: Order Comment: Thera peutic range for APTT's is 68 - 104 secondsResults checked. Performed By: #### 4 6832 ####[facility] [address] [place], [place] [address] Glenn Gudino M.D. [id number] CALCIUM, IONIZEDon CALCIUM IONIZED 4.6 mg/dL Normal 4.5-5.3 [facility] Comment on above: Order Comment: Serum , non-CRRT source. Performed By: #### 4 5190 ####[facility] [address] [place], [place] [address] Glenn Gudino M.D. [id number] CBCon 01-29-2024 AUTO NRBC 0.0 % Normal [facility] Comment on above: Performed By: #### 4 [id number] ####[facility] [address] [place] [address] Glenn Gudino M.D. [id number] AUTO NRBC ABS COUNT 0.00 K/mcL Normal 0.00-0.00 [facility] Comment on above: Performed By: #### 4 [id number] ####[facility] [address] [place] [address] Glenn Gudino M.D. [id number] Erythrocyte distribution width (RBC) [Ratio] 17.1 % High 11.6-14.8 [facility] Comment on above: Performed By: #### 4 [id number] ####[facility] [address] [place], [place] [address] Glenn Gudino M.D. [id number] Hematocrit (Bld) [Volume fraction] 24.0 % Low 36.0-46.0 [facility] Comment on above: Performed By: #### 4 [id number] ####[facility] [address] [place], [place] [address] Glenn Gudino M.D. [id number] Hemoglobin (Bld) [Mass/Vol] 7.7 g/dL Low 12.0-16.0 [facility] Comment on above: Performed By: #### 4 9018 ####[facility] [address] [place], [place] [address] Glenn Gudino M.D. [id number] MCH (RBC) [Entitic mass] 28.9 pg Normal 26.0-34.0 [facility] Comment on above: Performed By: #### 4 1018 ####[facility] [address] [place] [address] 84361 Glenn Gudino M.D. [id number] MCV (RBC) [Entitic vol] 90.2 fL Normal 80.0-100.0 [facility] Comment on above: Performed By: #### 4 [id number] ####[facility] [address] [place], [place] [address] Glenn Gudino M.D. [id number] MEAN CORPUSCULAR HEMOGLOBIN CONC 32.1 g/dL Normal 31.0-37.0 [facility] Comment on above: Performed By: #### 4 [id number] ####[facility] [address] [place] [address] Glenn Gudino M.D. [id number] Platelet mean volume (Bld) [Entitic vol] 10.2 fL Normal 9.4-12.4 [facility] Comment on above: Performed By: #### 4 [id number] ####[facility] [address] [place], [place] [address] Glenn Gudino M.D. [id number] Platelets (Bld) [#/Vol] 122 10*3/uL Low 150-400 [facility] Comment on above: Performed By: #### 4 [id number] ####[facility] [address] [place], [place] [address] Glenn Gudino M.D. [id number] RBC (Bld) [#/Vol] 2.66 10*6/uL Low 4.00-5.20 [facility] Comment on above: Performed By: #### 4 [id number] ####[facility] [address] [place] [address] Glenn Gudino M.D. [id number] WBC (Bld) [#/Vol] 8.35 10*3/uL Normal 4.50-11.00 [facility] Comment on above: Performed By: #### 4 [id number] ####[facility] [address] [place] [address] Glenn Gudino M.D. [id number] HEPATITIS B SURFACE ANTIGENo n 01-29-2024 HEPATITIS B SURFACE ANTIGEN Negative Normal Negative [facility] Comment on above: Order Comment: Test performed using Adele ANNALISE immunoassay system Performed By: #### 4 4081 ####[facility] [address] [place] [address] Glenn Gudino M.D. [id number] MAGNESIUM LEVELon 01-29-2024 Magnesium [Mass/Vol] 2.2 mg/dL Normal 1.6-2.4 [facility] Comment on above: Performed By: #### 4 6109 ####[facility] [address] [place] [address] Glenn Gudino M.D. [id number] POC GLUCOSE - [facility] 024 Glucose [Mass/Vol] 167 mg/dL High -[address] [place] [address] Comment on above: Performed By: #### 4 6580 ####[facility] [address] [place] [address] [id number] RMHPOC Glucose [Mass/Vol] 121 mg/dL [facility] [address] [place] [address] Comment on above: Performed By: #### 4 1242 ####[facility] [address] [place] [address] [id number] RM[facility] Glucose [Mass/Vol] 54 mg/dL Low 65-99 [facility] Comment on above: Performed By: #### 4 4442 ####[facility] [address] [place] [address] [id number] RMHPOC Glucose [Mass/Vol] 103 mg/dL High 65-99 [facility] Comment on above: Performed By: #### 4 2014 ####[facility] [address] [place] [address] [id number] RMHPOC Glucose [Mass/Vol] 131 mg/dL High 65-99 [facility] Comment on above: Performed By: #### 4 6932 ####[facility] [address] [place] [address] [id number] RMHPOC Glucose [Mass/Vol] 96 mg/dL Normal 65-99 [facility] Comment on above: Performed By: #### 4 6932 ####[facility] [address] [place] [address] [id number] RMHPOC Glucose [Mass/Vol] 114 mg/dL High 65-99 [facility] Comment on above: Performed By: #### 4 6932 ####[facility] [address] [place] [address] [id number] RMHPOC RENAL FUNCTION PANELon 01-28 Albumin [Mass/Vol] 2.3 g/dL Low 3.2-5.2 [facility] Comment on above: Order Comment: [facility] has implemented the eGFR calculation approach that does not have a coefficient for race that conforms to the NKF-ASN Task Force Recommendations. Performed By: #### 4 6449 ####[facility] [address] [place] [address] Glenn Gudino M.D. [id number] Anion gap [Moles/Vol] 11 mmol/L Normal 10-20 [facility] Comment on above: Order Comment: [facility] has implemented the eGFR calculation approach that does not have a coefficient for race that conforms to the NKF-ASN Task Force Recommendations. Performed By: #### 4 6449 ####[facility] [address] [place] [address] Glenn Gudino M.D. [id number] Calcium [Mass/Vol] 7.3 mg/dL Low 8.4-10.2 [facility] Comment on above: Order Comment: [facility] has implemented the eGFR calculation approach that does not have a coefficient for race that conforms to the NKF-ASN Task Force Recommendations. Performed By: #### 4 6449 ####[facility] [address] [place] [address] Glenn Gudino M.D. [id number] Chloride [Moles/Vol] 100 mmol/L Normal 98-108 [facility] Comment on above: Order Comment: [facility] has implemented the eGFR calculation approach that does not have a coefficient for race that conforms to the NKF-ASN Task Force Recommendations. Performed By: #### 4 6449 ####[facility] [address] [place], [place] [address] Glenn Gudino M.D. [id number] Creatinine [Mass/Vol] 1.90 mg/dL High 0.60-1.10 [facility] Comment on above: Order Comment: [facility] has implemented the eGFR calculation approach that does not have a coefficient for race that conforms to the NKF-ASN Task Force Recommendations. Performed By: #### 4 6449 ####[facility] [address] [place], [place] [address] Glenn Gudino M.D. [id number] EGFR 30 mL/min/1.73 m2 Low >=60 [facility] Comment on above: Order Comment: [facility] has implemented the eGFR calculation approach that does not have a coefficient for race that conforms to the NKF-ASN Task Force Recommendations. Result Comment: Joi mated GFR was calculated using the 2020 CKD-EPI creatinine equation. Performed By: #### 4 6449 ####[facility] [address] [place] [address] Glenn Gudino M.D. [id number] Glucose [Mass/Vol] 151 mg/dL High 65-99 [facility] Comment on above: Order Comment: [facility] has implemented the eGFR calculation approach that does not have a coefficient for race that conforms to the NKF-ASN Task Force Recommendations. Performed By: #### 4 6449 ####[facility] [address] [place], [place] [address] Glenn Gudino M.D. [id number] HCO3 (Bld) [Moles/Vol] 28 mmol/L Normal 21-32 [facility] Comment on above: Order Comment: [facility] has implemented the eGFR calculation approach that does not have a coefficient for race that conforms to the NKF-ASN Task Force Recommendations. Performed By: #### 4 6449 ####[facility] [address] [place] [address] Glenn Gudino M.D. [id number] Phosphate [Mass/Vol] 2.2 mg/dL Low 2.8-4.1 [facility] Comment on above: Order Comment: [facility] has implemented the eGFR calculation approach that does not have a coefficient for race that conforms to the NKF-ASN Task Force Recommendations. Performed By: #### 4 6449 ####[facility] [address] [place] [address] Glenn Gudino M.D. [id number] Potassium [Moles/Vol] 4.3 mmol/L Normal 3.5-5.1 [facility] Comment on above: Order Comment: [facility] has implemented the eGFR calculation approach that does not have a coefficient for race that conforms to the NKF-ASN Task Force Recommendations. Performed By: #### 4 6449 ####[facility] [address] [place], [place] [address] Glenn Gudino M.D. [id number] Sodium [Moles/Vol] 135 mmol/L Normal 135-145 [facility] Comment on above: Order Comment: [facility] has implemented the eGFR calculation approach that does not have a coefficient for race that conforms to the NKF-ASN Task Force Recommendations. Performed By: #### 4 6449 ####[facility] [address] [place], [place] [address] Glenn Gudino M.D. [id number] Urea nitrogen [Mass/Vol] 26 mg/dL High 8-25 [facility] Comment on above: Order Comment: [facility] has implemented the eGFR calculation approach that does not have a coefficient for race that conforms to the NKF-ASN Task Force Recommendations. Performed By: #### 4 6449 ####[facility] [address] [place] [address] Glenn Gudino M.D. [id number] Urea nitrogen/Creatinine [Mass ratio] 13.7 mg/mg Normal 10.0-20.0 [facility] Comment on above: Order Comment: [facility] has implemented the eGFR calculation approach that does not have a coefficient for race that conforms to the NKF-ASN Task Force Recommendations. Performed By: #### 4 6449 ####[facility] [address] [place] [address] Glenn Gudino M.D. [id number] Albumin [Mass/Vol] 1.5 g/dL Low 3.2-5.2 [facility] Comment on above: Order Comment: [facility] has implemented the eGFR calculation approach that does not have a coefficient for race that conforms to the NKF-ASN Task Force Recommendations. Performed By: #### 4 6449 ####[facility] [address] [place] [address] Glenn Gudino M.D. [id number] Anion gap [Moles/Vol] 13 mmol/L Normal 10-20 Ign[facility] Comment on above: Order Comment: [facility] has implemented the eGFR calculation approach that does not have a coefficient for race that conforms to the NKF-ASN Task Force Recommendations. Performed By: #### 4 6449 ####[facility] [address] [place] [address] Glenn Gudino M.D. [id number] Calcium [Mass/Vol] 7.3 mg/dL Low 8.4-10.2 [facility] Comment on above: Order Comment: [facility] has implemented the eGFR calculation approach that does not have a coefficient for race that conforms to the NKF-ASN Task Force Recommendations. Performed By: #### 4 6449 ####[facility] [address] [place] [address] 377[address] Glenn Gudino M.D. [id number] Chloride [Moles/Vol] 104 mmol/L Normal 98-108 [facility] Comment on above: Order Comment: [facility] has implemented the eGFR calculation approach that does not have a coefficient for race that conforms to the NKF-ASN Task Force Recommendations. Performed By: #### 4 6449 ####[facility] [address] [place] [address] Glenn Gudino M.D. [id number] Creatinine [Mass/Vol] 2.66 mg/dL High 0.60-1.10 [facility] Comment on above: Order Comment: [facility] has implemented the eGFR calculation approach that does not have a coefficient for race that conforms to the NKF-ASN Task Force Recommendations. Performed By: #### 4 6449 ####[facility] [address] [place] [address] 12565 Glenn Gudino M.D. [id number] EGFR 20 mL/min/1.73 m2 Low >=60 [facility] Comment on above: Order Comment: [facility] has implemented the eGFR calculation approach that does not have a coefficient for race that conforms to the NKF-ASN Task Force Recommendations. Result Comment: Joi mated GFR was calculated using the 2020 CKD-EPI creatinine equation. Performed By: #### 4 6449 ####[facility] [address] [place] [address] Glenn Gudino M.D. [id number] Glucose [Mass/Vol] 104 mg/dL High 65-99 [facility] Comment on above: Order Comment: [facility] has implemented the eGFR calculation approach that does not have a coefficient for race that conforms to the NKF-ASN Task Force Recommendations. Performed By: #### 4 6449 ####[facility] [address] [place] [address] Glenn Gudino M.D. [id number] HCO3 (Bld) [Moles/Vol] 23 mmol/L Normal 21-32 [facility] Comment on above: Order Comment: [facility] has implemented the eGFR calculation approach that does not have a coefficient for race that conforms to the NKF-ASN Task Force Recommendations. Performed By: #### 4 6449 ####[facility] [address] [place] [address] Glenn Gudino M.D. [id number] Phosphate [Mass/Vol] 3.1 mg/dL Normal 2.8-4.1 [facility] Comment on above: Order Comment: [facility] has implemented the eGFR calculation approach that does not have a coefficient for race that conforms to the NKF-ASN Task Force Recommendations. Performed By: #### 4 6449 ####[facility] [address] [place], [place] [address] Glenn Gudino M.D. [id number] Potassium [Moles/Vol] 5.0 mmol/L Normal 3.5-5.1 [facility] Comment on above: Order Comment: [facility] has implemented the eGFR calculation approach that does not have a coefficient for race that conforms to the NKF-ASN Task Force Recommendations. Performed By: #### 4 6449 ####[facility] [address] [place], [place] [address] Glenn Gudino M.D. [id number] Sodium [Moles/Vol] 135 mmol/L Normal 135-145 [facility] Comment on above: Order Comment: [facility] has implemented the eGFR calculation approach that does not have a coefficient for race that conforms to the NKF-ASN Task Force Recommendations. Performed By: #### 4 6449 ####[facility] [address] [place] [address] Glenn Gudino M.D. [id number] Urea nitrogen [Mass/Vol] 42 mg/dL High 8-25 [facility] Comment on above: Order Comment: [facility] has implemented the eGFR calculation approach that does not have a coefficient for race that conforms to the NKF-ASN Task Force Recommendations. Performed By: #### 4 6449 ####[facility] [address] [place] [address]14[address] Glenn Gudino M.D. [id number] Urea nitrogen/Creatinine [Mass ratio] 15.8 mg/mg Normal 10.0-20.0 [facility] Comment on above: Order Comment: [facility] has implemented the eGFR calculation approach that does not have a coefficient for race that conforms to the NKF-ASN Task Force Recommendations. Performed By: #### 4 6449 ####[facility] [address] [place] [address]2288 Glenn Gudino M.D. [id number] XR ABDOMEN /KUB/FLAT PLATE/1 VIEWon 01-29-2024 XR ABDOMEN /KUB/FLAT PLATE/[address] [facility] Comment on above: Order Comment: Injur y/Trauma or Illness?:Illness/OtherHow long have you had these symptoms (acute/chronic)?:AcuteReason for exam?:NGT placementHistory of cancer?:uSurgeries, chemotherapy, or radiation?:uType of Exam?:UnknownAdditional signs and symptoms?:no XR CHEST PA/APon 01-29-2024 XR CHEST PA/AP [facility] Comment on above: Order Comment: Injur y/Trauma or Illness?:Illness/OtherHow long have you had these symptoms (acute/chronic)?:AcuteReason for exam?:chest tube palcement, pneumothoraxHistory of cancer?:uSurgeries, chemotherapy, or radiation?:uType of Exam?:Subsequent/Follow-upAdditional signs and symptoms?:chest tube palcement, pneumothorax ANTIBODY IDENTIFICATION-Con 01-28-2024 ANTIBODY IDENTIFICATION-C [facility] Comment on above: Performed By: #### 4 6427_Anti-C ####[facility] [address] [place] [address] Nurys Oneill MD [id number] [facility] APTT HEPARIN COVERAGEon 09-0 aPTT Coag (Bld) [Time] 70 s High 23-34 Ri [facility] Comment on above: Order Comment: Thera peutic range for APTT's is 68 - 104 seconds Result Comment: Resu lts checked. Performed By: #### 4 6848 ####[facility] [address] [place] [address] Glenn Gudino M.D. [id number] B12/FOLATEon 01-28-2024 Cobalamin (Vitamin B12) [Mass/Vol] 879 pg/mL Normal 232-1245 [facility] Comment on above: Performed By: #### 4 6967 ####[facility] [address] [place], [place] [address] Glenn Gudino M.D. [id number] FOLATE 10.0 ng/mL Normal 3.1-17.5 [facility] Comment on above: Result Comment: Defi cient <2.2Borderline 2.2 - 3.0Excessive >17.5 Performed By: #### 4 6967 ####[facility] [address] [place], [place] [address] Glenn Gudino M.D. [id number] CALCIUM, IONIZEDon CALCIUM IONIZED 4.5 mg/dL Normal 4.5-5.3 [facility] Comment on above: Order Comment: Serum , non-CRRT source. Performed By: #### 4 5190 ####[facility] [address] [place], [place] [address] Glenn Gudino M.D. [id number] CBCon 01-28-2024 AUTO NRBC 0.0 % Normal [facility] Comment on above: Order Comment: One h our post RBC transfusion Performed By: #### 4 5218 ####[facility] [address] [place], [place] [address] Glenn Gudino M.D. [id number] AUTO NRBC ABS COUNT 0.00 K/mcL Normal 0.00-0.00 [facility] Comment on above: Order Comment: One h our post RBC transfusion Performed By: #### 4 5218 ####[facility] [address] [place] [address] Glenn Gudino M.D. [id number] Erythrocyte distribution width (RBC) [Ratio] 16.3 % High 11.6-14.8 [facility] Comment on above: Order Comment: One h our post RBC transfusion Performed By: #### 4 5218 ####[facility] [address] [place] [address] Glenn Gudino M.D. [id number] Hematocrit (Bld) [Volume fraction] 25.3 % Low 36.0-46.0 [facility] Comment on above: Order Comment: One h our post RBC transfusion Performed By: #### 4 5218 ####[facility] [address] [place], [place] [address] Glenn Gudino M.D. [id number] Hemoglobin (Bld) [Mass/Vol] 8.2 g/dL Low 12.0-16.0 [facility] Comment on above: Order Comment: One h our post RBC transfusion Performed By: #### 4 5218 ####[facility] [address] [place], [place] [address] Glenn Gudino M.D. [id number] MCH (RBC) [Entitic mass] 29.3 pg Normal 26.0-34.0 [facility] Comment on above: Order Comment: One h our post RBC transfusion Performed By: #### 4 5218 ####[facility] [address] [place], [place] [address] Glenn Gudino M.D. [id number] MCV (RBC) [Entitic vol] 90.4 fL Normal 80.0-100.0 [facility] Comment on above: Order Comment: One h our post RBC transfusion Performed By: #### 4 5218 ####[facility] [address] [place], [place] [address] Glenn Gudino M.D. [id number] MEAN CORPUSCULAR HEMOGLOBIN CONC 32.4 g/dL Normal 31.0-37.0 [facility] Comment on above: Order Comment: One h our post RBC transfusion Performed By: #### 4 5218 ####[facility] [address] [place], [place] [address] Glenn Gudino M.D. [id number] Platelet mean volume (Bld) [Entitic vol] 10.9 fL Normal 9.4-12.4 [facility] Comment on above: Order Comment: One h our post RBC transfusion Performed By: #### 4 5218 ####[facility] [address] [place], [place] [address] Glenn Gudino M.D. [id number] Platelets (Bld) [#/Vol] 118 10*3/uL Low 150-400 [facility] Comment on above: Order Comment: One h our post RBC transfusion Performed By: #### 4 5218 ####[facility] [address] [place], [place] [address] Glenn Gudino M.D. [id number] RBC (Bld) [#/Vol] 2.80 10*6/uL Low 4.00-5.20 [facility] Comment on above: Order Comment: One h our post RBC transfusion Performed By: #### 4 5218 ####[facility] [address] [place], [place] [address] Glenn Gudino M.D. [id number] WBC (Bld) [#/Vol] 7.55 10*3/uL Normal 4.50-11.00 [facility] Comment on above: Order Comment: One h our post RBC transfusion Performed By: #### 4 5218 ####[facility] [address] [place] [address] Glenn Gudino M.D. [id number] AUTO NRBC 0.0 % Normal [facility] Comment on above: Performed By: #### 4 5218 ####[facility] [address] [place] [address] Glenn Gudino M.D. [id number] AUTO NRBC ABS COUNT 0.00 K/mcL Normal 0.00-0.00 [facility] Comment on above: Performed By: #### 4 5218 ####[facility] [address] [place] [address] Glenn Gudino M.D. [id number] Erythrocyte distribution width (RBC) [Ratio] 17.2 % High 11.6-14.8 [facility] Comment on above: Performed By: #### 4 5218 ####[facility] [address] [place] [address] Glenn Gudino M.D. [id number] Hematocrit (Bld) [Volume fraction] 22.0 % Low 36.0-46.0 [facility] Comment on above: Performed By: #### 4 5218 ####[facility] [address] [place], [place] [address] Glenn Gudino M.D. [id number] Hemoglobin (Bld) [Mass/Vol] 7.2 g/dL Low 12.0-16.0 [facility] Comment on above: Result Comment: Repe ated verified Performed By: #### 4 5218 ####[facility] [address] [place], [place] [address] Glenn Gudino M.D. [id number] MCH (RBC) [Entitic mass] 29.8 pg Normal 26.0-34.0 [facility] Comment on above: Performed By: #### 4 5286 ####[facility] [address] [place] [address] Glenn Gudino M.D. [id number] MCV (RBC) [Entitic vol] 90.9 fL Normal 80.0-100.0 [facility] Comment on above: Performed By: #### 4 5218 ####[facility] [address] [place] [address] Glenn Gudino M.D. [id number] MEAN CORPUSCULAR HEMOGLOBIN CONC 32.7 g/dL Normal 31.0-37.0 [facility] Comment on above: Performed By: #### 4 5218 ####[facility] [address] [place] [address] Glenn Gudino M.D. [id number] Platelet mean volume (Bld) [Entitic vol] 11.2 fL Normal 9.4-12.4 [facility] Comment on above: Performed By: #### 4 5218 ####[facility] [address] [place], [place] [address] Glenn Gudino M.D. [id number] Platelets (Bld) [#/Vol] 130 10*3/uL Low 150-400 [facility] Comment on above: Performed By: #### 4 5218 ####[facility] [address] [place], [place] [address] Glenn Gudino M.D. [id number] RBC (Bld) [#/Vol] 2.42 10*6/uL Low 4.00-5.20 [facility] Comment on above: Performed By: #### 4 5218 ####[facility] [address] [place], [place] [address] Glenn Gudino M.D. [id number] WBC (Bld) [#/Vol] 8.26 10*3/uL Normal 4.50-11.00 [facility] Comment on above: Performed By: #### 4 5218 ####[facility] [address] [place], [place] [address] Glenn Gudino M.D. [id number] IRONon 01-28-2024 Iron [Mass/Vol] 49 ug/dL Normal 30-160 [facility] Comment on above: Performed By: #### 4 6039 ####[facility] [address] [place] [address] Glenn Gudino M.D. [id number] Performed By: #### 4 7645 ####[facility] [address] [place] [address] Glenn Gudino M.D. [id number] IRON STUDY WITH FERRITINon 0 01-28-2024 Ferritin [Mass/Vol] 3753 ng/mL High 13-150 [facility] Comment on above: Performed By: #### 4 7645 ####[facility] [address] [place], [place] [address] Glenn Gudino M.D. [id number] IRON SATURATION 70 % High 20-50 [facility] Comment on above: Performed By: #### 4 7645 ####[facility] [address] [place], [place] [address] Glenn Gudino M.D. [id number] TIBC (CALCULATED) 70 mcg/dL Low 225-430 [facility] Comment on above: Performed By: #### 4 7645 ####[facility] [address] [place], [place] [address] Glenn Gudino M.D. [id number] MAGNESIUM LEVELon 01-28-2024 Magnesium [Mass/Vol] 2.2 mg/dL Normal 1.6-2.4 [facility] Comment on above: Performed By: #### 4 6109 ####[facility] [address] [place], [place] [address]Karma Gudino M.D. [id number] POC GLUCOSE - [facility] 024 Glucose [Mass/Vol] 119 mg/dL High 65-99 [facility] Comment on above: Performed By: #### 4 6932 ####[facility] [address] [place] [address] [id number] RMHPOC Glucose [Mass/Vol] 128 mg/dL High 65-99 [facility] Comment on above: Performed By: #### 4 6932 ####[facility] [facility] [address] [place] [address] [id number] RMHPOC Glucose [Mass/Vol] 123 mg/dL High 65-99 [facility] Comment on above: Performed By: #### 4 6904 ####[facility] [address] [place] [address] [id number] RMHPOC Glucose [Mass/Vol] 114 mg/dL High 65- [facility] Comment on above: Performed By: #### 4 6932 ####[facility] [address] [place] [address] [id number] RMHPOC Glucose [Mass/Vol] 65 mg/dL Normal 65-99 [facility] Comment on above: Performed By: #### 4 6932 ####[facility] [address] [place] [address] [id number] RMHPOC Glucose [Mass/Vol] 85 mg/dL Normal 65-99 [facility] Comment on above: Performed By: #### 4 6930 ####[facility] [address] [place] [address] [id number] RMHPOC Glucose [Mass/Vol] 126 mg/dL High 65-99 [facility] Comment on above: Performed By: #### 4 6930 ####[facility] [address] [place] [address] [id number] RMHPOC RENAL FUNCTION PANELon 01-27 Albumin [Mass/Vol] 1.6 g/dL Low 3.2-5.2 [facility] Comment on above: Order Comment: [facility] has implemented the eGFR calculation approach that does not have a coefficient for race that conforms to the NKF-ASN Task Force Recommendations. Performed By: #### 4 6449 ####[facility] [address] [place], [place] [address] Glenn Gudino M.D. [id number] Anion gap [Moles/Vol] 12 mmol/L Normal 10-20 [facility] Comment on above: Order Comment: [facility] has implemented the eGFR calculation approach that does not have a coefficient for race that conforms to the NKF-ASN Task Force Recommendations. Performed By: #### 4 6449 ####[facility] [address] [place], [place] [address] Glenn Gudino M.D. [id number] Calcium [Mass/Vol] 7.2 mg/dL Low 8.4-10.2 [facility] Comment on above: Order Comment: [facility] has implemented the eGFR calculation approach that does not have a coefficient for race that conforms to the NKF-ASN Task Force Recommendations. Performed By: #### 4 6449 ####[facility] [address] [place] [address] 89422 Glenn Gudino M.D. [id number] Chloride [Moles/Vol] 103 mmol/L Normal 98-108 [facility] Comment on above: Order Comment: [facility] has implemented the eGFR calculation approach that does not have a coefficient for race that conforms to the NKF-ASN Task Force Recommendations. Performed By: #### 4 6449 ####[facility] [address] [place] [address] Glenn Gudino M.D. [id number] Creatinine [Mass/Vol] 2.36 mg/dL High 0.60-1.10 [facility] Comment on above: Order Comment: [facility] has implemented the eGFR calculation approach that does not have a coefficient for race that conforms to the NKF-ASN Task Force Recommendations. Performed By: #### 4 6449 ####[facility] [address] [place] [address] 61234 Glenn Gudino M.D. [id number] EGFR 23 mL/min/1.73 m2 Low >=60 [facility] Comment on above: Order Comment: [facility] has implemented the eGFR calculation approach that does not have a coefficient for race that conforms to the NKF-ASN Task Force Recommendations. Result Comment: Joi mated GFR was calculated using the 2020 CKD-EPI creatinine equation. Performed By: #### 4 6449 ####[facility] [address] [place] [address] 78436 Glenn Gudino M.D. [id number] Glucose [Mass/Vol] 120 mg/dL High 65-99 [facility] Comment on above: Order Comment: [facility] has implemented the eGFR calculation approach that does not have a coefficient for race that conforms to the NKF-ASN Task Force Recommendations. Performed By: #### 4 6449 ####[facility] [address] [place] [address]647 Glenn Gudino M.D. [id number] HCO3 (Bld) [Moles/Vol] 24 mmol/L Normal 21-32 [facility] Comment on above: Order Comment: [facility] has implemented the eGFR calculation approach that does not have a coefficient for race that conforms to the NKF-ASN Task Force Recommendations. Performed By: #### 4 6449 ####[facility] [address] [place] [address] 99522 Glenn Gudino M.D. [id number] Phosphate [Mass/Vol] 3.1 mg/dL Normal 2.8-4.1 [facility] Comment on above: Order Comment: [facility] has implemented the eGFR calculation approach that does not have a coefficient for race that conforms to the NKF-ASN Task Force Recommendations. Performed By: #### 4 6449 ####[facility] [address] [place] [address] 674[address] Glenn Gudino M.D. [id number] Potassium [Moles/Vol] 4.8 mmol/L Normal 3.5-5.1 [facility] Comment on above: Order Comment: [facility] has implemented the eGFR calculation approach that does not have a coefficient for race that conforms to the NKF-ASN Task Force Recommendations. Performed By: #### 4 6449 ####[facility] [address] [place] [address] 98435 Glenn Gudino M.D. [id number] Sodium [Moles/Vol] 134 mmol/L Low 135-145 [facility] Comment on above: Order Comment: [facility] has implemented the eGFR calculation approach that does not have a coefficient for race that conforms to the NKF-ASN Task Force Recommendations. Performed By: #### 4 6449 ####[facility] [address] [place] [address] Glenn Gudino M.D. [id number] Urea nitrogen [Mass/Vol] 34 mg/dL High 8-25 [facility] Comment on above: Order Comment: [facility] has implemented the eGFR calculation approach that does not have a coefficient for race that conforms to the NKF-ASN Task Force Recommendations. Performed By: #### 4 6449 ####[facility] [address] [place] [address] 45958 Glenn Gudino M.D. [id number] Urea nitrogen/Creatinine [Mass ratio] 14.4 mg/mg Normal 10.0-20.0 [facility] Comment on above: Order Comment: [facility] has implemented the eGFR calculation approach that does not have a coefficient for race that conforms to the NKF-ASN Task Force Recommendations. Performed By: #### 4 6449 ####[facility] [address] [place], [place] [address] Glenn Gudino M.D. [id number] Albumin [Mass/Vol] 1.6 g/dL Low 3.2-5.2 [facility] Comment on above: Order Comment: [facility] has implemented the eGFR calculation approach that does not have a coefficient for race that conforms to the NKF-ASN Task Force Recommendations. Performed By: #### 4 6449 ####[facility] [address] [place] [address] Glenn Gudino M.D. [id number] Anion gap [Moles/Vol] 13 mmol/L Normal 10-20 [facility] Comment on above: Order Comment: [facility] has implemented the eGFR calculation approach that does not have a coefficient for race that conforms to the NKF-ASN Task Force Recommendations. Performed By: #### 4 6449 ####[facility] [address] [place], [place] [address] Glenn Gudino M.D. [id number] Calcium [Mass/Vol] 7.9 mg/dL Low 8.4-10.2 [facility] Comment on above: Order Comment: [facility] has implemented the eGFR calculation approach that does not have a coefficient for race that conforms to the NKF-ASN Task Force Recommendations. Performed By: #### 4 6449 ####[facility] [address] [place], [place] [address] Glenn Gudino M.D. [id number] Chloride [Moles/Vol] 104 mmol/L Normal 98-108 [facility] Comment on above: Order Comment: [facility] has implemented the eGFR calculation approach that does not have a coefficient for race that conforms to the NKF-ASN Task Force Recommendations. Performed By: #### 4 6449 ####[facility] [address] [place], [place] [address] Glenn Gudino M.D. [id number] Creatinine [Mass/Vol] 2.07 mg/dL High 0.60-1.10 [facility] Comment on above: Order Comment: [facility] has implemented the eGFR calculation approach that does not have a coefficient for race that conforms to the NKF-ASN Task Force Recommendations. Performed By: #### 4 6449 ####[facility] [address] [place], [place] [address] Glenn Gudino M.D. [id number] EGFR 27 mL/min/1.73 m2 Low >=60 [facility] Comment on above: Order Comment: [facility] has implemented the eGFR calculation approach that does not have a coefficient for race that conforms to the NKF-ASN Task Force Recommendations. Result Comment: Joi mated GFR was calculated using the 2020 CKD-EPI creatinine equation. Performed By: #### 4 6449 ####[facility] [address] [place], [place] [address] Glenn Gudino M.D. [id number] Glucose [Mass/Vol] 120 mg/dL High 65-99 [facility] Comment on above: Order Comment: [facility] has implemented the eGFR calculation approach that does not have a coefficient for race that conforms to the NKF-ASN Task Force Recommendations. Performed By: #### 4 6449 ####[facility] [address] [place], [place] [address] Glenn Gudino M.D. [id number] HCO3 (Bld) [Moles/Vol] 24 mmol/L Normal 21-32 [facility] Comment on above: Order Comment: [facility] has implemented the eGFR calculation approach that does not have a coefficient for race that conforms to the NKF-ASN Task Force Recommendations. Performed By: #### 4 6449 ####[facility] [address] [place], [place] [address] Glenn Gudino M.D. [id number] Phosphate [Mass/Vol] 3.2 mg/dL Normal 2.8-4.1 [facility] Comment on above: Order Comment: [facility] has implemented the eGFR calculation approach that does not have a coefficient for race that conforms to the NKF-ASN Task Force Recommendations. Performed By: #### 4 6449 ####[facility] [address] [place] [address] 72346 Glenn Gudino M.D. [id number] Potassium [Moles/Vol] 4.9 mmol/L Normal 3.5-5.1 [facility] Comment on above: Order Comment: [facility] has implemented the eGFR calculation approach that does not have a coefficient for race that conforms to the NKF-ASN Task Force Recommendations. Result Comment: Slig htly Hemolyzed Performed By: #### 4 6449 ####[facility] [address] [place] [address] 81732 Glenn Gudino M.D. [id number] Sodium [Moles/Vol] 136 mmol/L Normal 135-145 [facility] Comment on above: Order Comment: [facility] has implemented the eGFR calculation approach that does not have a coefficient for race that conforms to the NKF-ASN Task Force Recommendations. Performed By: #### 4 6449 ####[facility] [address] [place] [address] 61036 Glenn Gudino M.D. [id number] Urea nitrogen [Mass/Vol] 29 mg/dL High 8-25 [facility] Comment on above: Order Comment: [facility] has implemented the eGFR calculation approach that does not have a coefficient for race that conforms to the NKF-ASN Task Force Recommendations. Performed By: #### 4 6449 ####[facility] [address] [place] [address] 65082 Glenn Gudino M.D. [id number] Urea nitrogen/Creatinine [Mass ratio] 14.0 mg/mg Normal 10.0-20.0 [facility] Comment on above: Order Comment: [facility] has implemented the eGFR calculation approach that does not have a coefficient for race that conforms to the NKF-ASN Task Force Recommendations. Performed By: #### 4 6449 ####[facility] [address] [place] [address] 08579 Glenn Gudino M.D. [id number] Albumin [Mass/Vol] 1.6 g/dL Low 3.2-5.2 [facility] Comment on above: Order Comment: [facility] has implemented the eGFR calculation approach that does not have a coefficient for race that conforms to the NKF-ASN Task Force Recommendations. Performed By: #### 4 6449 ####[facility] [address] [place] [address] Glenn Gudino M.D. [id number] Anion gap [Moles/Vol] 14 mmol/L Normal 10-20 [facility] Comment on above: Order Comment: [facility] has implemented the eGFR calculation approach that does not have a coefficient for race that conforms to the NKF-ASN Task Force Recommendations. Performed By: #### 4 6449 ####[facility] [address] [place] [address] 06313 Glenn Gudino M.D. [id number] Calcium [Mass/Vol] 7.4 mg/dL Low 8.4-10.2 [facility] Comment on above: Order Comment: [facility] has implemented the eGFR calculation approach that does not have a coefficient for race that conforms to the NKF-ASN Task Force Recommendations. Performed By: #### 4 6449 ####[facility] [address] [place], [place] [address] Glenn Gudino M.D. [id number] Chloride [Moles/Vol] 105 mmol/L Normal 98-108 [facility] Comment on above: Order Comment: [facility] has implemented the eGFR calculation approach that does not have a coefficient for race that conforms to the NKF-ASN Task Force Recommendations. Performed By: #### 4 6449 ####[facility] [address] [place], [place] [address] Glenn Gudino M.D. [id number] Creatinine [Mass/Vol] 1.94 mg/dL High 0.60-1.10 [facility] Comment on above: Order Comment: [facility] has implemented the eGFR calculation approach that does not have a coefficient for race that conforms to the NKF-ASN Task Force Recommendations. Performed By: #### 4 6449 ####[facility] [address] [place] [address] 42713 Glenn Gudino M.D. [id number] EGFR 29 mL/min/1.73 m2 Low >=60 [facility] Comment on above: Order Comment: [facility] has implemented the eGFR calculation approach that does not have a coefficient for race that conforms to the NKF-ASN Task Force Recommendations. Result Comment: Joi mated GFR was calculated using the 2020 CKD-EPI creatinine equation. Performed By: #### 4 6449 ####[facility] [address] [place] [address] 69182 Glenn Gudino M.D. [id number] Glucose [Mass/Vol] 125 mg/dL High 65-99 [facility] Comment on above: Order Comment: [facility] has implemented the eGFR calculation approach that does not have a coefficient for race that conforms to the NKF-ASN Task Force Recommendations. Performed By: #### 4 6449 ####[facility] [address] [place] [address] 39042 Glenn Gudino M.D. [id number] HCO3 (Bld) [Moles/Vol] 24 mmol/L Normal 21-32 [facility] Comment on above: Order Comment: [facility] has implemented the eGFR calculation approach that does not have a coefficient for race that conforms to the NKF-ASN Task Force Recommendations. Performed By: #### 4 6449 ####[facility] [address] [place] [address] 63413 Glenn Gudino M.D. [id number] Phosphate [Mass/Vol] 3.5 mg/dL Normal 2.8-4.1 [facility] Comment on above: Order Comment: [facility] has implemented the eGFR calculation approach that does not have a coefficient for race that conforms to the NKF-ASN Task Force Recommendations. Performed By: #### 4 6449 ####[facility] [address] [place] [address] Glenn Gudino M.D. [id number] Potassium [Moles/Vol] 5.2 mmol/L High 3.5-5.1 [facility] Comment on above: Order Comment: [facility] has implemented the eGFR calculation approach that does not have a coefficient for race that conforms to the NKF-ASN Task Force Recommendations. Result Comment: Marisol htly Hemolyzed Performed By: #### 4 6449 ####[facility] [address] [place], [place] [address] Glenn Gudino M.D. [id number] Sodium [Moles/Vol] 138 mmol/L Normal 135-145 [facility] Comment on above: Order Comment: [facility] has implemented the eGFR calculation approach that does not have a coefficient for race that conforms to the NKF-ASN Task Force Recommendations. Performed By: #### 4 6449 ####[facility] [address] [place], [place] [address] Glenn Gudino M.D. [id number] Urea nitrogen [Mass/Vol] 29 mg/dL High 8-25 [facility] Comment on above: Order Comment: [facility] has implemented the eGFR calculation approach that does not have a coefficient for race that conforms to the NKF-ASN Task Force Recommendations. Performed By: #### 4 6449 ####[facility] [address] [place], [place] [address] Glenn Gudino M.D. [id number] Urea nitrogen/Creatinine [Mass ratio] 14.9 mg/mg Normal 10.0-20.0 [facility] Comment on above: Order Comment: [facility] has implemented the eGFR calculation approach that does not have a coefficient for race that conforms to the NKF-ASN Task Force Recommendations. Performed By: #### 4 6449 ####[facility] [address] [place] [address] Glenn Gudino M.D. [id number] RETICULOCYTEon 01-28-2024 IMMATURE RETIC FRACT 21.2 % High 2.3-15.9 [facility] Comment on above: Performed By: #### 4 6452 ####[facility] [address] [place] [address] Glenn Gudino M.D. [id number] RETIC HGB EQUIVALENT 24.7 PG Low 27.7-38.2 [facility] Comment on above: Result Comment: The cut-off for RET-He established in our institution is 27.7-38.2 pg/RBC. A value below this range is highly suggestive of iron deficiency. At values above 38.2 pg/RBC, patients are unlikely to respond to additional iron therapy. Performed By: #### 4 6452 ####[facility] [address] [place], [place] [address] Glenn Gudino M.D. [id number] RETICULOCYTE ABSOLUTE COUNT 0.055 M/mcL Normal 0.025-0.07 0 [facility] Comment on above: Performed By: #### 4 6452 ####[facility] [address] [place], [place] [address] Glenn Gudino M.D. [id number] RETICULOCYTE COUNT PCT 2.3 % Normal [facility] Comment on above: Performed By: #### 4 6452 ####[facility] [address] [place] [address] Glenn Gudino M.D. [id number] TRIGLYCERIDESon 01-28-2024 Triglyceride [Mass/Vol] 95 mg/dL Normal 30-150 [facility] Comment on above: Result Comment: [place] onal Cholesterol Education Program Guidelines: TriglycerideNormal: <150 mg/dLBorderline High: 150-199 mg/dLHigh: 200-499 mg/dLVery High: greater than or equal to 500 mg/dL Performed By: #### 4 6606 ####[facility] [address] [place] [address] Glenn Gudino M.D. [id number] TRIGLYCERIDES, BODY FLUIDSon 01-28-2024 TRIGLYCERIDES FLUID 333 mg/dL [facility] Comment on above: Order Comment: No es tablished reference range. Performed By: #### 4 7057 ####[facility] [address] [place] [address] Glenn Gudino M.D. [id number] TYPE AND SCREENon 01-28-2024 TYPE AND SCREEN ABORH: O Positive AB SCREEN: Positive EXPIRATION DATE: 01/31/2024 23:[address] [facility] Comment on above: Performed By: #### 4 6619 ####[facility] [address] [place] [address] Nurys Oneill MD [id number] RMHTS XR ABDOMEN /KUB/FLAT PLATE/1 VIEWon 01-28-2024 XR ABDOMEN /KUB/FLAT PLATE/[address] [facility] Comment on above: Order Comment: Injur y/Trauma or Illness?:Illness/OtherHow long have you had these symptoms (acute/chronic)?:UnknownReason for exam?:small bore manipulatedHistory of cancer?:uSurgeries, chemotherapy, or radiation?:uType of Exam?:UnknownAdditional signs and symptoms?:small bore manipulated XR ABDOMEN /KUB/FLAT PLATE/[address] [facility] Comment on above: Order Comment: Injur y/Trauma or Illness?:Illness/OtherHow long have you had these symptoms (acute/chronic)?:UnknownReason for exam?:small bore NGHistory of cancer?:uSurgeries, chemotherapy, or radiation?:uType of Exam?:UnknownAdditional signs and symptoms?:small bore NG XR CHEST PA/APon 01-28-2024 XR CHEST PA/AP Normal [facility] Comment on above: Order Comment: Injur y/Trauma or Illness?:Illness/OtherHow long have you had these symptoms (acute/chronic)?:AcuteReason for exam?:ct/ptxHistory of cancer?:uSurgeries, chemotherapy, or radiation?:uType of Exam?:OngoingAdditional signs and symptoms?:- APTTon 01-27-2024 aPTT Coag (Bld) [Time] 60 s High 23-34 [facility] Comment on above: Order Comment: Thera peutic range for APTT's is 68 - 104 seconds Result Comment: Resu lts checked. Performed By: #### 4 5113 ####[facility] [address] [place] [address] Glenn Gudino M.D. [id number] APTT HEPARIN COVERAGEon 12-29 aPTT Coag (Bld) [Time] 86 s High 23-34 [facility] Comment on above: Order Comment: Thera peutic range for APTT's is 68 - 104 seconds Result Comment: Resu lts checked. Performed By: #### 4 6848 ####[facility] [address] [place] [address] Glenn Gudino M.D. [id number] aPTT Coag (Bld) [Time] 67 s High 23-34 [facility] Comment on above: Order Comment: Thera peutic range for APTT's is 68 - 104 seconds Performed By: #### 4 6848 ####[facility] [address] [place], [place] [address] Glenn Gudino M.D. [id number] aPTT Coag (Bld) [Time] 71 s High 23-34 [facility] Comment on above: Order Comment: Thera peutic range for APTT's is 68 - 104 seconds Performed By: #### 4 6804 ####[facility] [address] [place] [address] Glenn Gudino M.D. [id number] BASIC METABOLIC PANELon 08-3 Anion gap [Moles/Vol] 14 mmol/L Normal 10-20 [facility] Comment on above: Order Comment: [facility] has implemented the eGFR calculation approach that does not have a coefficient for race that conforms to the NKF-ASN Task Force Recommendations. Performed By: #### 4 6124 ####[facility] [address] [place] [address]269 Glenn Gduino M.D. [id number] Calcium [Mass/Vol] 7.9 mg/dL Low 8.4-10.2 [facility] Comment on above: Order Comment: [facility] has implemented the eGFR calculation approach that does not have a coefficient for race that conforms to the NKF-ASN Task Force Recommendations. Performed By: #### 4 6124 ####[facility] [address] [place] [address] [id number] Glenn Gudino M.D. [id number] Chloride [Moles/Vol] 103 mmol/L Normal 98-108 [facility] Comment on above: Order Comment: [facility] has implemented the eGFR calculation approach that does not have a coefficient for race that conforms to the NKF-ASN Task Force Recommendations. Performed By: #### 4 6124 ####[facility] [address] [place] [address] 34476 Glenn Gudino M.D. [id number] Creatinine [Mass/Vol] 2.21 mg/dL High 0.60-1.10 [facility] Comment on above: Order Comment: [facility] has implemented the eGFR calculation approach that does not have a coefficient for race that conforms to the NKF-ASN Task Force Recommendations. Performed By: #### 4 6124 ####[facility] [address] [place] [address] 32988 Glenn Gudino M.D. [id number] EGFR 25 mL/min/1.73 m2 Low >=60 [facility] Comment on above: Order Comment: [facility] has implemented the eGFR calculation approach that does not have a coefficient for race that conforms to the NKF-ASN Task Force Recommendations. Result Comment: Joi mated GFR was calculated using the 2020 CKD-EPI creatinine equation. Performed By: #### 4 6124 ####[facility] [address] [place] [address] 43594 Glenn Gudino M.D. [id number] Glucose [Mass/Vol] 145 mg/dL High 65-99 [facility] Comment on above: Order Comment: [facility] has implemented the eGFR calculation approach that does not have a coefficient for race that conforms to the NKF-ASN Task Force Recommendations. Performed By: #### 4 6124 ####[facility] [address] [place] [address] 04785 Glenn Gudino M.D. [id number] HCO3 (Bld) [Moles/Vol] 24 mmol/L Normal 21-32 [facility] Comment on above: Order Comment: [facility] has implemented the eGFR calculation approach that does not have a coefficient for race that conforms to the NKF-ASN Task Force Recommendations. Performed By: #### 4 6124 ####[facility] [address] [place] [address] 85002 Glenn Gudino M.D. [id number] Potassium [Moles/Vol] 4.7 mmol/L Normal 3.5-5.1 [facility] Comment on above: Order Comment: [facility] has implemented the eGFR calculation approach that does not have a coefficient for race that conforms to the NKF-ASN Task Force Recommendations. Performed By: #### 4 6124 ####[facility] [address] [place] [address] 23800 Glenn Gudino M.D. [id number] Sodium [Moles/Vol] 136 mmol/L Normal 135-145 [facility] Comment on above: Order Comment: [facility] has implemented the eGFR calculation approach that does not have a coefficient for race that conforms to the NKF-ASN Task Force Recommendations. Performed By: #### 4 6124 ####[facility] [address] [place] [address] 60667 Glenn Gudino M.D. [id number] Urea nitrogen [Mass/Vol] 30 mg/dL High 8-25 [facility] Comment on above: Order Comment: [facility] has implemented the eGFR calculation approach that does not have a coefficient for race that conforms to the NKF-ASN Task Force Recommendations. Performed By: #### 4 6124 ####[facility] [address] [place] [address] 64318 Glenn Gudino M.D. [id number] Urea nitrogen/Creatinine [Mass ratio] 13.6 mg/mg Normal 10.0-20.0 [facility] Comment on above: Order Comment: [facility] has implemented the eGFR calculation approach that does not have a coefficient for race that conforms to the NKF-ASN Task Force Recommendations. Performed By: #### 4 6124 ####[facility] [address] [place] [address] 52971 Glenn Gudino M.D. [id number] Anion gap [Moles/Vol] 18 mmol/L Normal 10-20 [facility] Comment on above: Order Comment: [facility] has implemented the eGFR calculation approach that does not have a coefficient for race that conforms to the NKF-ASN Task Force Recommendations. Performed By: #### 4 6124 ####[facility] [address] [place] [address] 57975 Glenn Gudino M.D. [id number] Calcium [Mass/Vol] 7.4 mg/dL Low 8.4-10.2 [facility] Comment on above: Order Comment: [facility] has implemented the eGFR calculation approach that does not have a coefficient for race that conforms to the NKF-ASN Task Force Recommendations. Performed By: #### 4 6124 ####[facility] [address] [place] [address] 78334 Glenn Gudino M.D. [id number] Chloride [Moles/Vol] 104 mmol/L Normal 98-108 [facility] Comment on above: Order Comment: [facility] has implemented the eGFR calculation approach that does not have a coefficient for race that conforms to the NKF-ASN Task Force Recommendations. Performed By: #### 4 6124 ####[facility] [address] [place] [address] 13749 Glenn Gudino M.D. [id number] Creatinine [Mass/Vol] 2.71 mg/dL High 0.60-1.10 [facility] Comment on above: Order Comment: [facility] has implemented the eGFR calculation approach that does not have a coefficient for race that conforms to the NKF-ASN Task Force Recommendations. Performed By: #### 4 6124 ####[facility] [address] [place] [address] 48792 Glenn Gudino M.D. [id number] EGFR 19 mL/min/1.73 m2 Low >=60 [facility] Comment on above: Order Comment: [facility] has implemented the eGFR calculation approach that does not have a coefficient for race that conforms to the NKF-ASN Task Force Recommendations. Result Comment: Joi mated GFR was calculated using the 2020 CKD-EPI creatinine equation. Performed By: #### 4 6124 ####[facility] [address] [place] [address] 28570 Glenn Gudino M.D. [id number] Glucose [Mass/Vol] 89 mg/dL Normal 65-99 [facility] Comment on above: Order Comment: [facility] has implemented the eGFR calculation approach that does not have a coefficient for race that conforms to the NKF-ASN Task Force Recommendations. Performed By: #### 4 6124 ####[facility] [address] [place] [address] 17226 Glenn Gudino M.D. [id number] HCO3 (Bld) [Moles/Vol] 22 mmol/L Normal 21-32 [facility] Comment on above: Order Comment: [facility] has implemented the eGFR calculation approach that does not have a coefficient for race that conforms to the NKF-ASN Task Force Recommendations. Performed By: #### 4 6124 ####[facility] [address] [place], [place] [address] Glenn Gudino M.D. [id number] Potassium [Moles/Vol] 5.0 mmol/L Normal 3.5-5.1 [facility] Comment on above: Order Comment: [facility] has implemented the eGFR calculation approach that does not have a coefficient for race that conforms to the NKF-ASN Task Force Recommendations. Performed By: #### 4 6124 ####[facility] [address] [place], [place] [address] Glenn Gudino M.D. [id number] Sodium [Moles/Vol] 139 mmol/L Normal 135-145 [facility] Comment on above: Order Comment: [facility] has implemented the eGFR calculation approach that does not have a coefficient for race that conforms to the NKF-ASN Task Force Recommendations. Performed By: #### 4 6124 ####[facility] [address] [place], [place] [address] Glenn Gudino M.D. [id number] Urea nitrogen [Mass/Vol] 37 mg/dL High 8-25 [facility] Comment on above: Order Comment: [facility] has implemented the eGFR calculation approach that does not have a coefficient for race that conforms to the NKF-ASN Task Force Recommendations. Performed By: #### 4 6189 ####[facility] [address] [place] [address] 48629 Glenn Gudino M.D. [id number] Urea nitrogen/Creatinine [Mass ratio] 13.7 mg/mg Normal 10.0-20.0 [facility] Comment on above: Order Comment: [facility] has implemented the eGFR calculation approach that does not have a coefficient for race that conforms to the NKF-ASN Task Force Recommendations. Performed By: #### 4 6124 ####[facility] [address] [place] [address] Glenn Gudino M.D. [id number] CALCIUM, IONIZEDon CALCIUM IONIZED 4.6 mg/dL Normal 4.5-5.3 [facility] Comment on above: Order Comment: Serum , non-CRRT source. Performed By: #### 4 5190 ####[facility] [address] [place], [place] [address] Glenn Gudino M.D. [id number] CALCIUM IONIZED 4.4 mg/dL Low 4.5-5.3 [facility] Comment on above: Order Comment: Serum , non-CRRT source. Performed By: #### 4 5190 ####[facility] [address] [place], [place] [address] Glenn Gudino M.D. [id number] CALCIUM IONIZED 4.4 mg/dL Low 4.5-5.3 [facility] Comment on above: Order Comment: Serum , non-CRRT source. Performed By: #### 4 5190 ####[facility] [address] [place], [place] [address] Glenn Gudino M.D. [id number] CALCIUM IONIZED 4.4 mg/dL Low 4.5-5.3 [facility] Comment on above: Order Comment: Serum , non-CRRT source. Performed By: #### 4 5190 ####[facility] [address] [place], [place] [address] Glenn Gudino M.D. [id number] CBCon 01-27-2024 AUTO NRBC 0.0 % Normal [facility] Comment on above: Performed By: #### 4 5218 ####[facility] [address] [place], [place] [address] Glenn Gudino M.D. [id number] AUTO NRBC ABS COUNT 0.00 K/mcL Normal 0.00-0.00 [facility] Comment on above: Performed By: #### 4 5218 ####[facility] [address] [place] [address] Glenn Gudino M.D. [id number] Erythrocyte distribution width (RBC) [Ratio] 16.9 % High 11.6-14.8 [facility] Comment on above: Performed By: #### 4 5218 ####[facility] [address] [place], [place] [address] Glenn Gudino M.D. [id number] Hematocrit (Bld) [Volume fraction] 29.2 % Low 36.0-46.0 [facility] Comment on above: Performed By: #### 4 5218 ####[facility] [address] [place], [place] [address] Glenn Gudino M.D. [id number] Hemoglobin (Bld) [Mass/Vol] 9.7 g/dL Low 12.0-16.0 [facility] Comment on above: Performed By: #### 4 5218 ####[facility] [address] [place], [place] [address] Glenn Gudino M.D. [id number] MCH (RBC) [Entitic mass] 29.5 pg Normal 26.0-34.0 [facility] Comment on above: Performed By: #### 4 5218 ####[facility] [address] [place] [address] Glenn Gudino M.D. [id number] MCV (RBC) [Entitic vol] 88.8 fL Normal 80.0-100.0 [facility] Comment on above: Performed By: #### 4 5218 ####[facility] [address] [place] [address] 83376 Glenn Gudino M.D. [id number] MEAN CORPUSCULAR HEMOGLOBIN CONC 33.2 g/dL Normal 31.0-37.0 [facility] Comment on above: Performed By: #### 4 5218 ####[facility] [address] [place], [place] [address] Glenn Gudino M.D. [id number] Platelet mean volume (Bld) [Entitic vol] 11.3 fL Normal 9.4-12.4 [facility] Comment on above: Performed By: #### 4 5218 ####[facility] [address] [place] [address] 54293 Glenn Gudino M.D. [id number] Platelets (Bld) [#/Vol] 106 10*3/uL Low 150-400 [facility] Comment on above: Result Comment: Repe ated verified Performed By: #### 4 5218 ####[facility] [address] [place], [place] [address] Glenn Gudino M.D. [id number] RBC (Bld) [#/Vol] 3.29 10*6/uL Low 4.00-5.20 [facility] Comment on above: Performed By: #### 4 5218 ####[facility] [address] [place] [address] 56593 Glenn Gudino M.D. [id number] WBC (Bld) [#/Vol] 17.82 10*3/uL High 4.50-11.00 [facility] Comment on above: Performed By: #### 4 5218 ####[facility] [address] [place] [address] 67276Karma Gudino M.D. [id number] MAGNESIUM LEVELon 01-27-2024 Magnesium [Mass/Vol] 2.2 mg/dL Normal 1.6-2.4 [facility] Comment on above: Performed By: #### 4 6109 ####[facility] [address] [place] [address] Glenn Gudino M.D. [id number] Magnesium [Mass/Vol] 2.2 mg/dL Normal 1.6-2.4 [facility] Comment on above: Performed By: #### 4 6109 ####[facility] [address] [place] [address] Glenn Gudino M.D. [id number] Magnesium [Mass/Vol] 2.1 mg/dL Normal 1.6-2.4 [facility] Comment on above: Performed By: #### 4 6109 ####[facility] [address] [place] [address] Glenn Gudino M.D. [id number] Magnesium [Mass/Vol] 2.2 mg/dL Normal 1.6-2.4 [facility] Comment on above: Performed By: #### 4 6109 ####[facility] [address] [place] [address] Glenn Gudino M.D. [id number] POC ARTERIAL BLOOD GAS PANEL -[facility] 01-27-2024 BASE EXCESS, ARTERIAL -0.1 Normal -2.0-2.0 [facility] Comment on above: Performed By: #### 4 3022 ####[facility] [address] [place] [address] [id number] RMHPOC CALCIUM IONIZED 4.4 mg/dL Low 4.5-5.3 [facility] Comment on above: Performed By: #### 4 6069 ####[facility] [address] [place] [address] [id number] [facility] CARBOXYHEMOGLOBIN 2.0 % of total Hb High <=1.5 [facility] Comment on above: Result Comment: Refe rence Ranges:Suburban Non-smokers: <1.5%Smokers: 1.5-5.0%Heavy Smokers: 5.0-9.0% Performed By: #### 4 5216 ####[facility] [address] [place] [address] [id number] RM[facility] Chloride [Moles/Vol] 103 mmol/L Normal 98-108 [facility] Comment on above: Performed By: #### 4 7616 ####[facility] [address] [place] [address] [id number] RM[facility] Glucose [Mass/Vol] 88 mg/dL Normal 65-99 [facility] Comment on above: Performed By: #### 4 2116 ####[facility] [address] [place] [address] [id number] RM[facility] HCO3 (Bld) [Moles/Vol] 24.5 mmol/L Normal 22.0-26.0 [facility] Comment on above: Performed By: #### 4 1516 ####[facility] [address] [place] [address] [id number] RM[facility] Hematocrit (Bld) [Volume fraction] 29.9 % Low 36.0-46.0 [facility] Comment on above: Performed By: #### 4 0216 ####[facility] [address] [place] [address] [id number] RM[facility] Hemoglobin (Bld) [Mass/Vol] 9.8 g/dL Low 12.0-16.0 [facility] Comment on above: Performed By: #### 4 7716 ####[facility] [address] [place] [address] [id number] [facility] LACTIC ACID, WHOLE BLOOD 1.1 mmol/L Normal 0.6-2.0 [facility] Comment on above: Performed By: #### 4 1687 ####[facility] [address] [place] [address] [id number] [facility] LITER FLOW 3 Normal [facility] Comment on above: Performed By: #### 4 8716 ####[facility] [address] [place] [address] [id number] [facility] METHEMOGLOBIN < Normal 0.0-2.0 [facility] Comment on above: Performed By: #### 4 8716 ####[facility] [address] [place] [address] [id number] [facility] O2HB 92.7 % Low 94.0-98.0 [facility] Comment on above: Performed By: #### 4 8716 ####[facility] [address] [place] [address] [id number] [facility] Oxygen saturation in Blood 94.8 % Normal 92.0-99.0 [facility] Comment on above: Performed By: #### 4 8716 ####[facility] [address] [place] [address] [id number] [facility] PCO2 ARTERIAL 39.0 mm Hg Normal 35.0-45.0 [facility] Comment on above: Performed By: #### 4 8716 ####[facility] [address] [place] [address] [id number] [facility] PH ARTERIAL 7.41 Normal 7.35-7.45 [facility] Comment on above: Performed By: #### 4 8716 ####[facility] [address] [place] [address] [id number] [facility] PO2 ARTERIAL 72 mm Hg Low 80-100 [facility] Comment on above: Performed By: #### 4 8716 ####[facility] [address] [place] [address] [id number] [facility] Potassium [Moles/Vol] 4.6 mmol/L Normal 3.5-5.1 [facility] Comment on above: Performed By: #### 4 4987 ####[facility] [address] [place] [address] [id number] [facility] Sodium [Moles/Vol] 134 mmol/L Low 135-145 [facility] Comment on above: Performed By: #### 4 8716 ####[facility] [address] [place] [address] [id number] [facility] POC GLUCOSE [facility] 024 Glucose [Mass/Vol] 111 mg/dL High 65-99 [facility] Comment on above: Performed By: #### 4 1351 ####[facility] [address] [place] [address] [id number] [facility] Glucose [Mass/Vol] 155 mg/dL High 65-99 [facility] Comment on above: Performed By: #### 4 3739 ####[facility] [address] [place] [address] [id number] [facility] Glucose [Mass/Vol] 132 mg/dL High 65-99 [facility] Comment on above: Performed By: #### 4 1952 ####[facility] [address] [place] [address] [id number] [facility] Glucose [Mass/Vol] 114 mg/dL High 65 [facility] Comment on above: Performed By: #### 4 1387 ####[facility] [address] [place] [address] [id number] [facility] Glucose [Mass/Vol] 109 mg/dL High 65-99 [facility] Comment on above: Performed By: #### 4 0844 ####[facility] [address] [place] [address] [id number] RM[facility] Glucose [Mass/Vol] 96 mg/dL Normal 65-99 [facility] Comment on above: Performed By: #### 4 7721 ####[facility] [address] [place] [address] [id number] [facility] Glucose [Mass/Vol] 71 mg/dL Normal 65-99 [facility] Comment on above: Performed By: #### 4 5005 ####[facility] [address] [place] [address] [id number] [facility] PAN[facility] 01-26 Albumin [Mass/Vol] 1.6 g/dL Low 3.2-5.2 [facility] Comment on above: Order Comment: [facility] has implemented the eGFR calculation approach that does not have a coefficient for race that conforms to the NKF-ASN Task Force Recommendations. Performed By: #### 4 6449 ####[facility] [address] [place] [address] 92721 Glenn Gudino M.D. [id number] Anion gap [Moles/Vol] 13 mmol/L Normal 10-20 [facility] Comment on above: Order Comment: [facility] has implemented the eGFR calculation approach that does not have a coefficient for race that conforms to the NKF-ASN Task Force Recommendations. Performed By: #### 4 6449 ####[facility] [address] [place], [place] [address] Glenn Gudino M.D. [id number] Calcium [Mass/Vol] 7.7 mg/dL Low 8.4-10.2 [facility] Comment on above: Order Comment: [facility] has implemented the eGFR calculation approach that does not have a coefficient for race that conforms to the NKF-ASN Task Force Recommendations. Performed By: #### 4 6449 ####[facility] [address] [place] [address] 97098 Glenn Gudino M.D. [id number] Chloride [Moles/Vol] 103 mmol/L Normal 98-108 [facility] Comment on above: Order Comment: [facility] has implemented the eGFR calculation approach that does not have a coefficient for race that conforms to the NKF-ASN Task Force Recommendations. Performed By: #### 4 6449 ####[facility] [address] [place] [address] 83862 Glenn Gudino M.D. [id number] Creatinine [Mass/Vol] 2.09 mg/dL High 0.60-1.10 [facility] Comment on above: Order Comment: [facility] has implemented the eGFR calculation approach that does not have a coefficient for race that conforms to the NKF-ASN Task Force Recommendations. Performed By: #### 4 6449 ####[facility] [address] [place] [address] 75011 Glenn Gudino M.D. [id number] EGFR 27 mL/min/1.73 m2 Low >=60 [facility] Comment on above: Order Comment: [facility] has implemented the eGFR calculation approach that does not have a coefficient for race that conforms to the NKF-ASN Task Force Recommendations. Result Comment: Joi mated GFR was calculated using the 2020 CKD-EPI creatinine equation. Performed By: #### 4 6449 ####[facility] [address] [place], [place] [address] Glenn Gudino M.D. [id number] Glucose [Mass/Vol] 121 mg/dL High 65-99 [facility] Comment on above: Order Comment: [facility] has implemented the eGFR calculation approach that does not have a coefficient for race that conforms to the NKF-ASN Task Force Recommendations. Performed By: #### 4 6449 ####[facility] [address] [place] [address] 58029 Glenn Gudino M.D. [id number] HCO3 (Bld) [Moles/Vol] 24 mmol/L Normal 21-32 [facility] Comment on above: Order Comment: [facility] has implemented the eGFR calculation approach that does not have a coefficient for race that conforms to the NKF-ASN Task Force Recommendations. Performed By: #### 4 6449 ####[facility] [address] [place] [address] 56670 Glenn Gudino M.D. [id number] Phosphate [Mass/Vol] 4.0 mg/dL Normal 2.8-4.1 [facility] Comment on above: Order Comment: [facility] has implemented the eGFR calculation approach that does not have a coefficient for race that conforms to the NKF-ASN Task Force Recommendations. Performed By: #### 4 6449 ####[facility] [address] [place] [address] 99730 Glenn Gudino M.D. [id number] Potassium [Moles/Vol] 4.7 mmol/L Normal 3.5-5.1 [facility] Comment on above: Order Comment: [facility] has implemented the eGFR calculation approach that does not have a coefficient for race that conforms to the NKF-ASN Task Force Recommendations. Performed By: #### 4 6449 ####[facility] [address] [place] [address] 49500 Glenn Gudino M.D. [id number] Sodium [Moles/Vol] 135 mmol/L Normal 135-145 [facility] Comment on above: Order Comment: [facility] has implemented the eGFR calculation approach that does not have a coefficient for race that conforms to the NKF-ASN Task Force Recommendations. Performed By: #### 4 6449 ####[facility] [address] [place] [address] 98476 Glenn Gudino M.D. [id number] Urea nitrogen [Mass/Vol] 29 mg/dL High 8-25 [facility] Comment on above: Order Comment: [facility] has implemented the eGFR calculation approach that does not have a coefficient for race that conforms to the NKF-ASN Task Force Recommendations. Performed By: #### 4 [id number] ####[facility] [address] [place] [address] 30536 Glenn Gudino M.D. [id number] Urea nitrogen/Creatinine [Mass ratio] 13.9 mg/mg Normal 10.0-20.0 [facility] Comment on above: Order Comment: [facility] has implemented the eGFR calculation approach that does not have a coefficient for race that conforms to the NKF-ASN Task Force Recommendations. Performed By: #### 4 6449 ####[facility] [address] [place] [address] 24224 Glenn Gudino M.D. [id number] Albumin [Mass/Vol] 1.7 g/dL Low 3.2-5.2 [facility] Comment on above: Order Comment: [facility] has implemented the eGFR calculation approach that does not have a coefficient for race that conforms to the NKF-ASN Task Force Recommendations. Performed By: #### 4 6449 ####[facility] [address] [place] [address] 81560 Glenn Gudino M.D. [id number] Anion gap [Moles/Vol] 15 mmol/L Normal 10-20 [facility] Comment on above: Order Comment: [facility] has implemented the eGFR calculation approach that does not have a coefficient for race that conforms to the NKF-ASN Task Force Recommendations. Performed By: #### 4 6449 ####[facility] [address] [place] [address] 99663 Glenn Gudino M.D. [id number] Calcium [Mass/Vol] 7.7 mg/dL Low 8.4-10.2 [facility] Comment on above: Order Comment: [facility] has implemented the eGFR calculation approach that does not have a coefficient for race that conforms to the NKF-ASN Task Force Recommendations. Performed By: #### 4 6449 ####[facility] [address] [place], [place] [address] Glenn Gudino M.D. [id number] Chloride [Moles/Vol] 103 mmol/L Normal 98-108 [facility] Comment on above: Order Comment: [facility] has implemented the eGFR calculation approach that does not have a coefficient for race that conforms to the NKF-ASN Task Force Recommendations. Performed By: #### 4 [id number] ####[facility] [address] [place], [place] [address] Glenn Gudino M.D. [id number] Creatinine [Mass/Vol] 2.25 mg/dL High 0.60-1.10 [facility] Comment on above: Order Comment: [facility] has implemented the eGFR calculation approach that does not have a coefficient for race that conforms to the NKF-ASN Task Force Recommendations. Performed By: #### 4 6449 ####[facility] [address] [place] [address] 81113 Glenn Gudino M.D. [id number] EGFR 24 mL/min/1.73 m2 Low >=60 [facility] Comment on above: Order Comment: [facility] has implemented the eGFR calculation approach that does not have a coefficient for race that conforms to the NKF-ASN Task Force Recommendations. Result Comment: Joi mated GFR was calculated using the 2020 CKD-EPI creatinine equation. Performed By: #### 4 6449 ####[facility] [address] [place] [address] 77159 Glenn Gudino M.D. [id number] Glucose [Mass/Vol] 122 mg/dL High 65-99 [facility] Comment on above: Order Comment: [facility] has implemented the eGFR calculation approach that does not have a coefficient for race that conforms to the NKF-ASN Task Force Recommendations. Performed By: #### 4 6449 ####[facility] [address] [place] [address] 15792 Glenn Gudino M.D. [id number] HCO3 (Bld) [Moles/Vol] 24 mmol/L Normal 21-32 [facility] Comment on above: Order Comment: [facility] has implemented the eGFR calculation approach that does not have a coefficient for race that conforms to the NKF-ASN Task Force Recommendations. Performed By: #### 4 6449 ####[facility] [address] [place] [address] 04873 Glenn Gudino M.D. [id number] Phosphate [Mass/Vol] 4.7 mg/dL High 2.8-4.1 [facility] Comment on above: Order Comment: [facility] has implemented the eGFR calculation approach that does not have a coefficient for race that conforms to the NKF-ASN Task Force Recommendations. Performed By: #### 4 6449 ####[facility] [address] [place], [place] [address] Glenn Gudino M.D. [id number] Potassium [Moles/Vol] 5.0 mmol/L Normal 3.5-5.1 [facility] Comment on above: Order Comment: [facility] has implemented the eGFR calculation approach that does not have a coefficient for race that conforms to the NKF-ASN Task Force Recommendations. Performed By: #### 4 6449 ####[facility] [address] [place], [place] [address] Glenn Gudino M.D. [id number] Sodium [Moles/Vol] 137 mmol/L Normal 135-145 [facility] Comment on above: Order Comment: [facility] has implemented the eGFR calculation approach that does not have a coefficient for race that conforms to the NKF-ASN Task Force Recommendations. Performed By: #### 4 6449 ####[facility] [address] [place] [address] 98671 Gelnn Gudino M.D. [id number] Urea nitrogen [Mass/Vol] 30 mg/dL High 8-25 [facility] Comment on above: Order Comment: [facility] has implemented the eGFR calculation approach that does not have a coefficient for race that conforms to the NKF-ASN Task Force Recommendations. Performed By: #### 4 6449 ####[facility] [address] [place] [address] 26155 Glenn Gudino M.D. [id number] Urea nitrogen/Creatinine [Mass ratio] 13.3 mg/mg Normal 10.0-20.0 [facility] Comment on above: Order Comment: [facility] has implemented the eGFR calculation approach that does not have a coefficient for race that conforms to the NKF-ASN Task Force Recommendations. Performed By: #### 4 6449 ####[facility] [address] [place] [address] 67319 Glenn Gudino M.D. [id number] Albumin [Mass/Vol] 1.8 g/dL Low 3.2-5.2 [facility] Comment on above: Order Comment: [facility] has implemented the eGFR calculation approach that does not have a coefficient for race that conforms to the NKF-ASN Task Force Recommendations. Performed By: #### 4 6449 ####[facility] [address] [place] [address] 32592 Glenn Gudino M.D. [id number] Anion gap [Moles/Vol] 15 mmol/L Normal 10-20 [facility] Comment on above: Order Comment: [facility] has implemented the eGFR calculation approach that does not have a coefficient for race that conforms to the NKF-ASN Task Force Recommendations. Performed By: #### 4 6449 ####[facility] [address] [place] [address] 98338 Glenn Gudino M.D. [id number] Calcium [Mass/Vol] 7.7 mg/dL Low 8.4-10.2 [facility] Comment on above: Order Comment: [facility] has implemented the eGFR calculation approach that does not have a coefficient for race that conforms to the NKF-ASN Task Force Recommendations. Performed By: #### 4 6449 ####[facility] [address] [place] [address] 60109 Glenn Gudino M.D. [id number] Chloride [Moles/Vol] 102 mmol/L Normal 98-108 [facility] Comment on above: Order Comment: [facility] has implemented the eGFR calculation approach that does not have a coefficient for race that conforms to the NKF-ASN Task Force Recommendations. Performed By: #### 4 6449 ####[facility] [address] [place] [address] 02519 Glenn Gudino M.D. [id number] Creatinine [Mass/Vol] 2.42 mg/dL High 0.60-1.10 [facility] Comment on above: Order Comment: [facility] has implemented the eGFR calculation approach that does not have a coefficient for race that conforms to the NKF-ASN Task Force Recommendations. Performed By: #### 4 6449 ####[facility] [address] [place] [address] 07740 Glenn Gudino M.D. [id number] EGFR 22 mL/min/1.73 m2 Low >=60 [facility] Comment on above: Order Comment: [facility] has implemented the eGFR calculation approach that does not have a coefficient for race that conforms to the NKF-ASN Task Force Recommendations. Result Comment: Joi mated GFR was calculated using the 2020 CKD-EPI creatinine equation. Performed By: #### 4 6449 ####[facility] [address] [place] [address] 26031 Glenn Gudino M.D. [id number] Glucose [Mass/Vol] 103 mg/dL High 65-99 [facility] Comment on above: Order Comment: [facility] has implemented the eGFR calculation approach that does not have a coefficient for race that conforms to the NKF-ASN Task Force Recommendations. Performed By: #### 4 6449 ####[facility] [address] [place] [address] 66617 Glenn Gudino M.D. [id number] HCO3 (Bld) [Moles/Vol] 24 mmol/L Normal 21-32 [facility] Comment on above: Order Comment: [facility] has implemented the eGFR calculation approach that does not have a coefficient for race that conforms to the NKF-ASN Task Force Recommendations. Performed By: #### 4 6449 ####[facility] [address] [place] [address] 64654 Glenn Gudino M.D. [id number] Phosphate [Mass/Vol] 5.4 mg/dL High 2.8-4.1 [facility] Comment on above: Order Comment: [facility] has implemented the eGFR calculation approach that does not have a coefficient for race that conforms to the NKF-ASN Task Force Recommendations. Performed By: #### 4 6449 ####[facility] [address] [place], [place] [address] Glenn Gudino M.D. [id number] Potassium [Moles/Vol] 4.7 mmol/L Normal 3.5-5.1 [facility] Comment on above: Order Comment: [facility] has implemented the eGFR calculation approach that does not have a coefficient for race that conforms to the NKF-ASN Task Force Recommendations. Performed By: #### 4 6449 ####[facility] [address] [place], [place] [address] Glenn Gudino M.D. [id number] Sodium [Moles/Vol] 136 mmol/L Normal 135-145 [facility] Comment on above: Order Comment: [facility] has implemented the eGFR calculation approach that does not have a coefficient for race that conforms to the NKF-ASN Task Force Recommendations. Performed By: #### 4 6449 ####[facility] [address] [place] [address] 66564 Glenn Gudino M.D. [id number] Urea nitrogen [Mass/Vol] 33 mg/dL High 8-25 [facility] Comment on above: Order Comment: [facility] has implemented the eGFR calculation approach that does not have a coefficient for race that conforms to the NKF-ASN Task Force Recommendations. Performed By: #### 4 6449 ####[facility] [address] [place] [address] 25629 Glenn Gudino M.D. [id number] Urea nitrogen/Creatinine [Mass ratio] 13.6 mg/mg Normal 10.0-20.0 [facility] Comment on above: Order Comment: [facility] has implemented the eGFR calculation approach that does not have a coefficient for race that conforms to the NKF-ASN Task Force Recommendations. Performed By: #### 4 6449 ####[facility] [address] [place], [place] [address] Glenn Gudino M.D. [id number] Albumin [Mass/Vol] 1.6 g/dL Low 3.2-5.2 [facility] Comment on above: Order Comment: [facility] has implemented the eGFR calculation approach that does not have a coefficient for race that conforms to the NKF-ASN Task Force Recommendations. Performed By: #### 4 6449 ####[facility] [address] [place], [place] [address] Glenn Gudino M.D. [id number] Anion gap [Moles/Vol] 19 mmol/L Normal 10-20 [facility] Comment on above: Order Comment: [facility] has implemented the eGFR calculation approach that does not have a coefficient for race that conforms to the NKF-ASN Task Force Recommendations. Performed By: #### 4 6449 ####[facility] [address] [place] [address] 62942 Glenn Gudino M.D. [id number] Calcium [Mass/Vol] 7.5 mg/dL Low 8.4-10.2 [facility] Comment on above: Order Comment: [facility] has implemented the eGFR calculation approach that does not have a coefficient for race that conforms to the NKF-ASN Task Force Recommendations. Performed By: #### 4 6449 ####[facility] [address] [place], [place] [address] Glenn Gudino M.D. [id number] Chloride [Moles/Vol] 103 mmol/L Normal 98-108 [facility] Comment on above: Order Comment: [facility] has implemented the eGFR calculation approach that does not have a coefficient for race that conforms to the NKF-ASN Task Force Recommendations. Performed By: #### 4 6449 ####[facility] [address] [place] [address] 31241 Glenn Gudino M.D. [id number] Creatinine [Mass/Vol] 2.60 mg/dL High 0.60-1.10 [facility] Comment on above: Order Comment: [facility] has implemented the eGFR calculation approach that does not have a coefficient for race that conforms to the NKF-ASN Task Force Recommendations. Performed By: #### 4 6449 ####[facility] [address] [place] [address] 51588 Glenn Gudino M.D. [id number] EGFR 20 mL/min/1.73 m2 Low >=60 [facility] Comment on above: Order Comment: [facility] has implemented the eGFR calculation approach that does not have a coefficient for race that conforms to the NKF-ASN Task Force Recommendations. Result Comment: Joi mated GFR was calculated using the 2020 CKD-EPI creatinine equation. Performed By: #### 4 6449 ####[facility] [address] [place] [address] 20004 Glenn Gudino M.D. [id number] Glucose [Mass/Vol] 89 mg/dL Normal 65-99 [facility] Comment on above: Order Comment: [facility] has implemented the eGFR calculation approach that does not have a coefficient for race that conforms to the NKF-ASN Task Force Recommendations. Performed By: #### 4 6449 ####[facility] [address] [place] [address] 87539 Glenn Gudino M.D. [id number] HCO3 (Bld) [Moles/Vol] 20 mmol/L Low 21-32 [facility] Comment on above: Order Comment: [facility] has implemented the eGFR calculation approach that does not have a coefficient for race that conforms to the NKF-ASN Task Force Recommendations. Performed By: #### 4 6449 ####[facility] [address] [place] [address] 78786 Glenn Gudino M.D. [id number] Phosphate [Mass/Vol] 6.0 mg/dL High 2.8-4.1 [facility] Comment on above: Order Comment: [facility] has implemented the eGFR calculation approach that does not have a coefficient for race that conforms to the NKF-ASN Task Force Recommendations. Performed By: #### 4 6449 ####[facility] [address] [place] [address] 73963 Glenn Gudino M.D. [id number] Potassium [Moles/Vol] 5.0 mmol/L Normal 3.5-5.1 [facility] Comment on above: Order Comment: [facility] has implemented the eGFR calculation approach that does not have a coefficient for race that conforms to the NKF-ASN Task Force Recommendations. Result Comment: Slig htly Hemolyzed Performed By: #### 4 6449 ####[facility] [address] [place] [address] 60910 Glenn Gudino M.D. [id number] Sodium [Moles/Vol] 137 mmol/L Normal 135-145 [facility] Comment on above: Order Comment: [facility] has implemented the eGFR calculation approach that does not have a coefficient for race that conforms to the NKF-ASN Task Force Recommendations. Performed By: #### 4 6449 ####[facility] [address] [place] [address] 94278 Glenn Gudino M.D. [id number] Urea nitrogen [Mass/Vol] 34 mg/dL High 8-25 [facility] Comment on above: Order Comment: [facility] has implemented the eGFR calculation approach that does not have a coefficient for race that conforms to the NKF-ASN Task Force Recommendations. Performed By: #### 4 6449 ####[facility] [address] [place] [address] 13248 Glenn Gudino M.D. [id number] Urea nitrogen/Creatinine [Mass ratio] 13.1 mg/mg Normal 10.0-20.0 [facility] Comment on above: Order Comment: [facility] has implemented the eGFR calculation approach that does not have a coefficient for race that conforms to the NKF-ASN Task Force Recommendations. Performed By: #### 4 6449 ####[facility] [address] [place] [address] 24935 Glenn Gudino M.D. [id number] XR CHEST PA/APon 01-27-2024 XR CHEST PA/AP Normal [facility] Comment on above: Order Comment: Injur y/Trauma or Illness?:Illness/OtherHow long have you had these symptoms (acute/chronic)?:UnknownReason for exam?:Chest tube placement, pneumothoraxHistory of cancer?:uSurgeries, chemotherapy, or radiation?:uType of Exam?:UnknownAdditional signs and symptoms?:Chest tube placement, pneumothorax XR CHEST PA/AP Normal [facility] Comment on above: Order Comment: Injur y/Trauma or Illness?:Illness/OtherHow long have you had these symptoms (acute/chronic)?:UnknownReason for exam?:hypoxia, L pneumothorax, effusionHistory of cancer?:uSurgeries, chemotherapy, or radiation?:uType of Exam?:OngoingAdditional signs and symptoms?:- APTT HEPARIN COVERAGEon 12-29 aPTT Coag (Bld) [Time] 134 s Off scale high 23-34 [facility] Comment on above: Order Comment: Thera peutic range for APTT's is 68 - 104 seconds Result Comment: Resu lts checked. Performed By: #### 4 [id number] ####[facility] [address] [place] [address] 46794 Glenn Gudino M.D. [id number] aPTT Coag (Bld) [Time] 105 s High 23-34 [facility] Comment on above: Order Comment: Thera peutic range for APTT's is 68 - 104 seconds Result Comment: Resu lts checked. Performed By: #### 4 [id number] ####[facility] [address] [place] [address] 98608 Glenn Gudino M.D. [id number] BASIC METABOLIC PANELon 08-3 0 Anion gap [Moles/Vol] 18 mmol/L Normal 10-20 [facility] Comment on above: Order Comment: [facility] has implemented the eGFR calculation approach that does not have a coefficient for race that conforms to the NKF-ASN Task Force Recommendations. Performed By: #### 4 6124 ####[facility] [address] [place] [address] 19670 Glenn Gudino M.D. [id number] Calcium [Mass/Vol] 7.5 mg/dL Low 8.4-10.2 [facility] Comment on above: Order Comment: [facility] has implemented the eGFR calculation approach that does not have a coefficient for race that conforms to the NKF-ASN Task Force Recommendations. Performed By: #### 4 6124 ####[facility] [address] [place] [address] 11976 Glenn Gudino M.D. [id number] Chloride [Moles/Vol] 105 mmol/L Normal 98-108 [facility] Comment on above: Order Comment: [facility] has implemented the eGFR calculation approach that does not have a coefficient for race that conforms to the NKF-ASN Task Force Recommendations. Performed By: #### 4 6124 ####[facility] [address] [place] [address] 50718 Glenn Gudino M.D. [id number] Creatinine [Mass/Vol] 3.06 mg/dL High 0.60-1.10 [facility] Comment on above: Order Comment: [facility] has implemented the eGFR calculation approach that does not have a coefficient for race that conforms to the NKF-ASN Task Force Recommendations. Performed By: #### 4 6124 ####[facility] [address] [place] [address] 02510 Glenn Gudino M.D. [id number] EGFR 17 mL/min/1.73 m2 Low >=60 [facility] Comment on above: Order Comment: [facility] has implemented the eGFR calculation approach that does not have a coefficient for race that conforms to the NKF-ASN Task Force Recommendations. Result Comment: Joi mated GFR was calculated using the 2020 CKD-EPI creatinine equation. Performed By: #### 4 [id number] ####[facility] [address] [place] [address] 49737 Glenn Gudino M.D. [id number] Glucose [Mass/Vol] 69 mg/dL Normal 65-99 [facility] Comment on above: Order Comment: [facility] has implemented the eGFR calculation approach that does not have a coefficient for race that conforms to the NKF-ASN Task Force Recommendations. Performed By: #### 4 6124 ####[facility] [address] [place] [address] 43339 Glenn Gudino M.D. [id number] HCO3 (Bld) [Moles/Vol] 19 mmol/L Low 21-32 [facility] Comment on above: Order Comment: [facility] has implemented the eGFR calculation approach that does not have a coefficient for race that conforms to the NKF-ASN Task Force Recommendations. Performed By: #### 4 6124 ####[facility] [address] [place] [address] 91374 Glenn Gudino M.D. [id number] Potassium [Moles/Vol] 4.9 mmol/L Normal 3.5-5.1 [facility] Comment on above: Order Comment: [facility] has implemented the eGFR calculation approach that does not have a coefficient for race that conforms to the NKF-ASN Task Force Recommendations. Result Comment: Slig htly Hemolyzed Performed By: #### 4 6124 ####[facility] [address] [place] [address] 64260 Glenn Gudino M.D. [id number] Sodium [Moles/Vol] 137 mmol/L Normal 135-145 [facility] Comment on above: Order Comment: [facility] has implemented the eGFR calculation approach that does not have a coefficient for race that conforms to the NKF-ASN Task Force Recommendations. Performed By: #### 4 6124 ####[facility] [address] [place] [address] 77352 Glenn Gudino M.D. [id number] Urea nitrogen [Mass/Vol] 39 mg/dL High 8-25 [facility] Comment on above: Order Comment: [facility] Laboratory [facility] has implemented the eGFR calculation approach that does not have a coefficient for race that conforms to the NKF-ASN Task Force Recommendations. Performed By: #### 4 6124 ####[facility] [address] [place], [place] [address] Glenn Gudino M.D. [id number] Urea nitrogen/Creatinine [Mass ratio] 12.7 mg/mg Normal 10.0-20.0 [facility] Comment on above: Order Comment: [facility] has implemented the eGFR calculation approach that does not have a coefficient for race that conforms to the NKF-ASN Task Force Recommendations. Performed By: #### 4 6124 ####[facility] [address] [place] [address] 11703 Glenn Gudino M.D. [id number] Anion gap [Moles/Vol] 17 mmol/L Normal 10-20 [facility] Comment on above: Order Comment: [facility] has implemented the eGFR calculation approach that does not have a coefficient for race that conforms to the NKF-ASN Task Force Recommendations. Performed By: #### 4 6124 ####[facility] [address] [place] [address] 94310 Glenn Gudino M.D. [id number] Calcium [Mass/Vol] 7.6 mg/dL Low 8.4-10.2 [facility] Comment on above: Order Comment: [facility] has implemented the eGFR calculation approach that does not have a coefficient for race that conforms to the NKF-ASN Task Force Recommendations. Performed By: #### 4 6124 ####[facility] [address] [place], [place] [address] Glenn Gudino M.D. [id number] Chloride [Moles/Vol] 106 mmol/L Normal 98-108 [facility] Comment on above: Order Comment: [facility] has implemented the eGFR calculation approach that does not have a coefficient for race that conforms to the NKF-ASN Task Force Recommendations. Performed By: #### 4 6124 ####[facility] [address] [place], [place] [address] Glenn Gudino M.D. [id number] Creatinine [Mass/Vol] 2.86 mg/dL High 0.60-1.10 [facility] Comment on above: Order Comment: [facility] has implemented the eGFR calculation approach that does not have a coefficient for race that conforms to the NKF-ASN Task Force Recommendations. Performed By: #### 4 6124 ####[facility] [address] [place] [address] 50891 Glenn Gudino M.D. [id number] EGFR 18 mL/min/1.73 m2 Low >=60 [facility] Comment on above: Order Comment: [facility] has implemented the eGFR calculation approach that does not have a coefficient for race that conforms to the NKF-ASN Task Force Recommendations. Result Comment: Joi mated GFR was calculated using the 2020 CKD-EPI creatinine equation. Performed By: #### 4 6124 ####[facility] [address] [place] [address] 58606 Glenn Gudino M.D. [id number] Glucose [Mass/Vol] 81 mg/dL Normal 65-99 [facility] Comment on above: Order Comment: [facility] has implemented the eGFR calculation approach that does not have a coefficient for race that conforms to the NKF-ASN Task Force Recommendations. Performed By: #### 4 6161 ####[facility] [address] [place] [address] 23331 Glenn Gudino M.D. [id number] HCO3 (Bld) [Moles/Vol] 19 mmol/L Low 21-32 [facility] Comment on above: Order Comment: [facility] has implemented the eGFR calculation approach that does not have a coefficient for race that conforms to the NKF-ASN Task Force Recommendations. Performed By: #### 4 6177 ####[facility] [address] [place], [place] [address] Glenn Gudino M.D. [id number] Potassium [Moles/Vol] 5.3 mmol/L High 3.5-5.1 [facility] Comment on above: Order Comment: [facility] has implemented the eGFR calculation approach that does not have a coefficient for race that conforms to the NKF-ASN Task Force Recommendations. Result Comment: Slig htly Hemolyzed Performed By: #### 4 6179 ####[facility] [address] [place] [address] 53256 Glenn Gudino M.D. [id number] Sodium [Moles/Vol] 137 mmol/L Normal 135-145 [facility] Comment on above: Order Comment: [facility] has implemented the eGFR calculation approach that does not have a coefficient for race that conforms to the NKF-ASN Task Force Recommendations. Performed By: #### 4 6125 ####[facility] [address] [place] [address] 83098 Glenn Gudino M.D. [id number] Urea nitrogen [Mass/Vol] 38 mg/dL High 8-25 [facility] Comment on above: Order Comment: [facility] has implemented the eGFR calculation approach that does not have a coefficient for race that conforms to the NKF-ASN Task Force Recommendations. Performed By: #### 4 6124 ####[facility] [address] [place] [address] 15934 Glenn Gudino M.D. [id number] Urea nitrogen/Creatinine [Mass ratio] 13.3 mg/mg Normal 10.0-20.0 [facility] Comment on above: Order Comment: [facility] has implemented the eGFR calculation approach that does not have a coefficient for race that conforms to the NKF-ASN Task Force Recommendations. Performed By: #### 4 6124 ####[facility] [address] [place] [address] 29186 Glenn Gudino M.D. [id number] Anion gap [Moles/Vol] 18 mmol/L Normal 10-20 [facility] Comment on above: Order Comment: [facility] has implemented the eGFR calculation approach that does not have a coefficient for race that conforms to the NKF-ASN Task Force Recommendations. Performed By: #### 4 6124 ####[facility] [address] [place] [address] 68994 Glenn Gudino M.D. [id number] Calcium [Mass/Vol] 7.4 mg/dL Low 8.4-10.2 [facility] Comment on above: Order Comment: [facility] has implemented the eGFR calculation approach that does not have a coefficient for race that conforms to the NKF-ASN Task Force Recommendations. Performed By: #### 4 6124 ####[facility] [address] [place] [address] 08475 Glenn Gudino M.D. [id number] Chloride [Moles/Vol] 107 mmol/L Normal 98-108 [facility] Comment on above: Order Comment: [facility] has implemented the eGFR calculation approach that does not have a coefficient for race that conforms to the NKF-ASN Task Force Recommendations. Performed By: #### 4 6124 ####[facility] [address] [place] [address] 84306 Glenn Gudino M.D. [id number] Creatinine [Mass/Vol] 2.54 mg/dL High 0.60-1.10 [facility] Comment on above: Order Comment: [facility] has implemented the eGFR calculation approach that does not have a coefficient for race that conforms to the NKF-ASN Task Force Recommendations. Performed By: #### 4 6124 ####[facility] [address] [place] [address] 54912 Glenn Gudino M.D. [id number] EGFR 21 mL/min/1.73 m2 Low >=60 [facility] Comment on above: Order Comment: [facility] has implemented the eGFR calculation approach that does not have a coefficient for race that conforms to the NKF-ASN Task Force Recommendations. Result Comment: Joi mated GFR was calculated using the 2020 CKD-EPI creatinine equation. Performed By: #### 4 6124 ####[facility] [address] [place] [address] 08057 Glenn Gudino M.D. [id number] Glucose [Mass/Vol] 72 mg/dL Normal 65-99 [facility] Comment on above: Order Comment: [facility] has implemented the eGFR calculation approach that does not have a coefficient for race that conforms to the NKF-ASN Task Force Recommendations. Performed By: #### 4 6124 ####[facility] [address] [place] [address] 52978 Glenn Gudino M.D. [id number] HCO3 (Bld) [Moles/Vol] 17 mmol/L Low 21-32 [facility] Comment on above: Order Comment: [facility] has implemented the eGFR calculation approach that does not have a coefficient for race that conforms to the NKF-ASN Task Force Recommendations. Performed By: #### 4 6124 ####[facility] [address] [place], [place] [address] Glenn Gudino M.D. [id number] Potassium [Moles/Vol] 5.1 mmol/L Normal 3.5-5.1 [facility] Comment on above: Order Comment: [facility] has implemented the eGFR calculation approach that does not have a coefficient for race that conforms to the NKF-ASN Task Force Recommendations. Result Comment: Slig htly Hemolyzed Performed By: #### 4 6124 ####[facility] [address] [place] [address] 32109 Glenn Gudino M.D. [id number] Sodium [Moles/Vol] 137 mmol/L Normal 135-145 [facility] Comment on above: Order Comment: [facility] has implemented the eGFR calculation approach that does not have a coefficient for race that conforms to the NKF-ASN Task Force Recommendations. Performed By: #### 4 6124 ####[facility] [address] [place], [place] [address] Glenn Gudino M.D. [id number] Urea nitrogen [Mass/Vol] 36 mg/dL High 8-25 [facility] Comment on above: Order Comment: [facility] has implemented the eGFR calculation approach that does not have a coefficient for race that conforms to the NKF-ASN Task Force Recommendations. Performed By: #### 4 6124 ####[facility] [address] [place], [place] [address] Glenn Gudino M.D. [id number] Urea nitrogen/Creatinine [Mass ratio] 14.2 mg/mg Normal 10.0-20.0 [facility] Comment on above: Order Comment: [facility] has implemented the eGFR calculation approach that does not have a coefficient for race that conforms to the NKF-ASN Task Force Recommendations. Performed By: #### 4 6124 ####[facility] [address] [place], [place] [address] Glenn Gudino M.D. [id number] CALCIUM, IONIZEDon CALCIUM IONIZED 4.3 mg/dL Low 4.5-5.3 [facility] Comment on above: Order Comment: Serum , non-CRRT source. Performed By: #### 4 5190 ####[facility] [address] [place], [place] [address] Glenn Gudino M.D. [id number] CALCIUM IONIZED 4.5 mg/dL Normal 4.5-5.3 [facility] Comment on above: Performed By: #### 4 5190 ####[facility] [address] [place] [address] Glenn Gudino M.D. [id number] CBCon 01-26-2024 AUTO NRBC 0.0 % Normal [facility] Comment on above: Performed By: #### 4 [id number] ####[facility] [address] [place] [address] Glenn Gudino M.D. [id number] AUTO NRBC ABS COUNT 0.00 K/mcL Normal 0.00-0.00 [facility] Comment on above: Performed By: #### 4 [id number] ####[facility] [address] [place], [place] [address] Glenn Gudino M.D. [id number] Erythrocyte distribution width (RBC) [Ratio] 17.2 % High 11.6-14.8 [facility] Comment on above: Performed By: #### 4 [id number] ####[facility] [address] [place], [place] [address] Glenn Gudino M.D. [id number] Hematocrit (Bld) [Volume fraction] 31.5 % Low 36.0-46.0 [facility] Comment on above: Performed By: #### 4 [id number] ####[facility] [address] [place], [place] [address] Glenn Gudino M.D. [id number] Hemoglobin (Bld) [Mass/Vol] 10.5 g/dL Low 12.0-16.0 [facility] Comment on above: Performed By: #### 4 [id number] ####[facility] [address] [place] [address] Glenn Gudino M.D. [id number] MCH (RBC) [Entitic mass] 29.2 pg Normal 26.0-34.0 [facility] Comment on above: Performed By: #### 4 [id number] ####[facility] [address] [place] [address] Glenn Gudino M.D. [id number] MCV (RBC) [Entitic vol] 87.5 fL Normal 80.0-100.0 [facility] Comment on above: Performed By: #### 4 [id number] ####[facility] [address] [place] [address] Glenn Gudino M.D. [id number] MEAN CORPUSCULAR HEMOGLOBIN CONC 33.3 g/dL Normal 31.0-37.0 [facility] Comment on above: Performed By: #### 4 [id number] ####[facility] [address] [place] [address] Glenn Gudino M.D. [id number] Platelet mean volume (Bld) [Entitic vol] 11.7 fL Normal 9.4-12.4 [facility] Comment on above: Performed By: #### 4 [id number] ####[facility] [address] [place], [place] [address] Glenn Gudino M.D. [id number] Platelets (Bld) [#/Vol] 80 10*3/uL Low 150-400 [facility] Comment on above: Result Comment: Resu lts checked Performed By: #### 4 5234 ####[facility] [address] [place] [address] Glenn Gudino M.D. [id number] RBC (Bld) [#/Vol] 3.60 10*6/uL Low 4.00-5.20 [facility] Comment on above: Performed By: #### 4 [id number] ####[facility] [address] [place] [address] 75298 Glenn Gudino M.D. [id number] WBC (Bld) [#/Vol] 13.45 10*3/uL High 4.50-11.00 [facility] Comment on above: Performed By: #### 4 [id number] ####[facility] [address] [place] [address] Glenn Gudino M.D. [id number] MAGNESIUM LEVELon 01-26-2024 Magnesium [Mass/Vol] 2.2 mg/dL Normal 1.6-2.4 [facility] Comment on above: Performed By: #### 4 6109 ####[facility] [address] [place], [place] [address] Glenn Gudino M.D. [id number] Magnesium [Mass/Vol] 2.2 mg/dL Normal 1.6-2.4 [facility] Comment on above: Performed By: #### 4 6109 ####[facility] [address] [place], [place] [address] Glenn Gudino M.D. [id number] MYOGLOBIN, URINEon MYOGLOBIN, URINE Positive Abnormal Negative [facility] Comment on above: Performed By: #### 4 6189 ####[facility] [address] [place], [place] [address] Glenn Gudino M.D. [id number] PHOSPHORUSon 01-26-2024 Phosphate [Mass/Vol] 6.5 mg/dL High 2.8-4.1 [facility] Comment on above: Performed By: #### 4 6299 ####[facility] [address] [place] [address] Glenn Gudino M.D. [id number] POC GLUCOSE - [facility] 024 Glucose [Mass/Vol] 96 mg/dL Normal 65-99 [facility] Comment on above: Performed By: #### 4 6906 ####[facility] [address] [place] [address] [id number] RM[facility] Glucose [Mass/Vol] 14 mg/dL Off scale low 65-99 [facility] Comment on above: Order Comment: Criti cherrie result acted upon time of test. Test performed at bedside. Performed By: #### 4 5980 ####[facility] [address] [place] [address] [id number] [facility] Glucose [Mass/Vol] 72 mg/dL Normal 65-99 [facility] Comment on above: Performed By: #### 4 4905 ####[facility] [address] [place] [address] [id number] [facility] Glucose [Mass/Vol] 82 mg/dL Normal 65-99 [facility] Comment on above: Performed By: #### 4 6434 ####[facility] [address] [place] [address] [id number] [facility] Glucose [Mass/Vol] 84 mg/dL Normal 65-99 [facility] Comment on above: Performed By: #### 4 3438 ####[facility] [address] [place] [address] [id number] [facility] Glucose [Mass/Vol] 76 mg/dL Normal 65-99 [facility] Comment on above: Performed By: #### 4 2348 ####[facility] [address] [place] [address] [id number] [facility] Glucose [Mass/Vol] 78 mg/dL Normal 65-99 [facility] Comment on above: Performed By: #### 4 0843 ####[facility] [address] [place] [address] [id number] [facility] RENAL FUNCTION PANELon 01-25 Albumin [Mass/Vol] 1.6 g/dL Low 3.2-5.2 [facility] Comment on above: Order Comment: [facility] has implemented the eGFR calculation approach that does not have a coefficient for race that conforms to the NKF-ASN Task Force Recommendations. Performed By: #### 4 6449 ####[facility] [address] [place], [place] [address] Glenn Gudino M.D. [id number] Anion gap [Moles/Vol] 17 mmol/L Normal 10-20 [facility] Comment on above: Order Comment: [facility] has implemented the eGFR calculation approach that does not have a coefficient for race that conforms to the NKF-ASN Task Force Recommendations. Performed By: #### 4 6449 ####[facility] [address] [place], [place] [address] Glenn Gudino M.D. [id number] Calcium [Mass/Vol] 6.9 mg/dL Low 8.4-10.2 [facility] Comment on above: Order Comment: [facility] has implemented the eGFR calculation approach that does not have a coefficient for race that conforms to the NKF-ASN Task Force Recommendations. Performed By: #### 4 6449 ####[facility] [address] [place] [address] 50550 Glenn Gudino M.D. [id number] Chloride [Moles/Vol] 103 mmol/L Normal 98-108 [facility] Comment on above: Order Comment: [facility] has implemented the eGFR calculation approach that does not have a coefficient for race that conforms to the NKF-ASN Task Force Recommendations. Performed By: #### 4 6449 ####[facility] [address] [place] [address] 22075 Glenn Gudino M.D. [id number] Creatinine [Mass/Vol] 2.90 mg/dL High 0.60-1.10 [facility] Comment on above: Order Comment: [facility] has implemented the eGFR calculation approach that does not have a coefficient for race that conforms to the NKF-ASN Task Force Recommendations. Performed By: #### 4 6449 ####[facility] [address] [place] [address] 79312 Glenn Gudino M.D. [id number] EGFR 18 mL/min/1.73 m2 Low >=60 [facility] Comment on above: Order Comment: [facility] has implemented the eGFR calculation approach that does not have a coefficient for race that conforms to the NKF-ASN Task Force Recommendations. Result Comment: Joi mated GFR was calculated using the 2020 CKD-EPI creatinine equation. Performed By: #### 4 6449 ####[facility] [address] [place] [address] 71668 Glenn Gudino M.D. [id number] Glucose [Mass/Vol] 84 mg/dL Normal 65-99 [facility] Comment on above: Order Comment: [facility] has implemented the eGFR calculation approach that does not have a coefficient for race that conforms to the NKF-ASN Task Force Recommendations. Performed By: #### 4 6449 ####[facility] [address] [place] [address] 70440 Glenn Gudino M.D. [id number] HCO3 (Bld) [Moles/Vol] 21 mmol/L Normal 21-32 [facility] Comment on above: Order Comment: [facility] has implemented the eGFR calculation approach that does not have a coefficient for race that conforms to the NKF-ASN Task Force Recommendations. Performed By: #### 4 6449 ####[facility] [address] [place] [address] 62905 Glenn Gudino M.D. [id number] Phosphate [Mass/Vol] 6.5 mg/dL High 2.8-4.1 [facility] Comment on above: Order Comment: [facility] has implemented the eGFR calculation approach that does not have a coefficient for race that conforms to the NKF-ASN Task Force Recommendations. Performed By: #### 4 6449 ####[facility] [address] [place] [address] 68721 Glenn Gudino M.D. [id number] Potassium [Moles/Vol] 5.0 mmol/L Normal 3.5-5.1 [facility] Comment on above: Order Comment: [facility] has implemented the eGFR calculation approach that does not have a coefficient for race that conforms to the NKF-ASN Task Force Recommendations. Result Comment: Slig htly Hemolyzed Performed By: #### 4 6449 ####[facility] [address] [place] [address] 32005 Glenn Gudino M.D. [id number] Sodium [Moles/Vol] 136 mmol/L Normal 135-145 [facility] Comment on above: Order Comment: [facility] has implemented the eGFR calculation approach that does not have a coefficient for race that conforms to the NKF-ASN Task Force Recommendations. Performed By: #### 4 6449 ####[facility] [address] [place] [address] 97559 Glenn Gudino M.D. [id number] Urea nitrogen [Mass/Vol] 39 mg/dL High 8-25 [facility] Comment on above: Order Comment: [facility] has implemented the eGFR calculation approach that does not have a coefficient for race that conforms to the NKF-ASN Task Force Recommendations. Performed By: #### 4 6449 ####[facility] [address] [place] [address] 69373 Glenn Gudino M.D. [id number] Urea nitrogen/Creatinine [Mass ratio] 13.4 mg/mg Normal 10.0-20.0 [facility] Comment on above: Order Comment: [facility] has implemented the eGFR calculation approach that does not have a coefficient for race that conforms to the NKF-ASN Task Force Recommendations. Performed By: #### 4 6449 ####[facility] [address] [place] [address] 09877 Glenn Gudino M.D. [id number] XR ABDOMEN /KUB/FLAT PLATE/1 VIEWon 01-26-2024 XR ABDOMEN /KUB/FLAT PLATE/1 VIEW Normal [facility] Comment on above: Order Comment: Injur y/Trauma or Illness?:Illness/OtherHow long have you had these symptoms (acute/chronic)?:UnknownReason for exam?:NG placementHistory of cancer?:uSurgeries, chemotherapy, or radiation?:uType of Exam?:InitialAdditional signs and symptoms?:unk XR CHEST PA/APon 01-26-2024 XR CHEST PA/AP Normal [facility] Comment on above: Order Comment: Injur y/Trauma or Illness?:Illness/OtherHow long have you had these symptoms (acute/chronic)?:UnknownReason for exam?:eval LIJ placementHistory of cancer?:uSurgeries, chemotherapy, or radiation?:uType of Exam?:InitialAdditional signs and symptoms?:unk BASIC METABOLIC PANELon 12-28 Anion gap [Moles/Vol] 17 mmol/L Normal 10-20 [facility] Comment on above: Order Comment: [facility] has implemented the eGFR calculation approach that does not have a coefficient for race that conforms to the NKF-ASN Task Force Recommendations. Performed By: #### 4 6124 ####[facility] [address] [place] [address] 24337 Glenn Gudino M.D. [id number] Calcium [Mass/Vol] 7.3 mg/dL Low 8.4-10.2 [facility] Comment on above: Order Comment: [facility] has implemented the eGFR calculation approach that does not have a coefficient for race that conforms to the NKF-ASN Task Force Recommendations. Performed By: #### 4 6124 ####[facility] [address] [place] [address] 81554 Glenn Gudino M.D. [id number] Chloride [Moles/Vol] 106 mmol/L Normal 98-108 [facility] Comment on above: Order Comment: [facility] has implemented the eGFR calculation approach that does not have a coefficient for race that conforms to the NKF-ASN Task Force Recommendations. Performed By: #### 4 6124 ####[facility] [address] [place], [place] [address] Glenn Gudino M.D. [id number] Creatinine [Mass/Vol] 2.50 mg/dL High 0.60-1.10 [facility] Comment on above: Order Comment: [facility] has implemented the eGFR calculation approach that does not have a coefficient for race that conforms to the NKF-ASN Task Force Recommendations. Performed By: #### 4 6124 ####[facility] [address] [place], [place] [address] Glenn Gudino M.D. [id number] EGFR 21 mL/min/1.73 m2 Low >=60 [facility] Comment on above: Order Comment: [facility] has implemented the eGFR calculation approach that does not have a coefficient for race that conforms to the NKF-ASN Task Force Recommendations. Result Comment: Joi mated GFR was calculated using the 2020 CKD-EPI creatinine equation. Performed By: #### 4 6124 ####[facility] [address] [place], [place] [address] Glenn Gudino M.D. [id number] Glucose [Mass/Vol] 72 mg/dL Normal 65-99 [facility] Comment on above: Order Comment: [facility] has implemented the eGFR calculation approach that does not have a coefficient for race that conforms to the NKF-ASN Task Force Recommendations. Performed By: #### 4 6124 ####[facility] [address] [place] [address] 66231 Glenn Gudino M.D. [id number] HCO3 (Bld) [Moles/Vol] 19 mmol/L Low 21-32 [facility] Comment on above: Order Comment: [facility] has implemented the eGFR calculation approach that does not have a coefficient for race that conforms to the NKF-ASN Task Force Recommendations. Performed By: #### 4 6124 ####[facility] [address] [place] [address] 75579 Glenn Gudino M.D. [id number] Potassium [Moles/Vol] 5.0 mmol/L Normal 3.5-5.1 [facility] Comment on above: Order Comment: [facility] has implemented the eGFR calculation approach that does not have a coefficient for race that conforms to the NKF-ASN Task Force Recommendations. Performed By: #### 4 6124 ####[facility] [address] [place] [address] 30454 Glenn Gudino M.D. [id number] Sodium [Moles/Vol] 137 mmol/L Normal 135-145 [facility] Comment on above: Order Comment: [facility] has implemented the eGFR calculation approach that does not have a coefficient for race that conforms to the NKF-ASN Task Force Recommendations. Performed By: #### 4 6124 ####[facility] [address] [place] [address] 34020 Glenn Gudino M.D. [id number] Urea nitrogen [Mass/Vol] 32 mg/dL High 8-25 [facility] Comment on above: Order Comment: [facility] has implemented the eGFR calculation approach that does not have a coefficient for race that conforms to the NKF-ASN Task Force Recommendations. Performed By: #### 4 6124 ####[facility] [address] [place] [address] 97840 Glenn Gudino M.D. [id number] Urea nitrogen/Creatinine [Mass ratio] 12.8 mg/mg Normal 10.0-20.0 [facility] Comment on above: Order Comment: [facility] has implemented the eGFR calculation approach that does not have a coefficient for race that conforms to the NKF-ASN Task Force Recommendations. Performed By: #### 4 6124 ####[facility] [address] [place] [address] 49553 Glenn Gudino M.D. [id number] Anion gap [Moles/Vol] 16 mmol/L Normal 10-20 [facility] Comment on above: Order Comment: [facility] has implemented the eGFR calculation approach that does not have a coefficient for race that conforms to the NKF-ASN Task Force Recommendations. Performed By: #### 4 6124 ####[facility] [address] [place] [address] 33859 Glenn Gudino M.D. [id number] Calcium [Mass/Vol] 7.3 mg/dL Low 8.4-10.2 [facility] Comment on above: Order Comment: [facility] has implemented the eGFR calculation approach that does not have a coefficient for race that conforms to the NKF-ASN Task Force Recommendations. Performed By: #### 4 6124 ####[facility] [address] [place] [address] 24983 Glenn Gudino M.D. [id number] Chloride [Moles/Vol] 109 mmol/L High 98-108 [facility] Comment on above: Order Comment: [facility] has implemented the eGFR calculation approach that does not have a coefficient for race that conforms to the NKF-ASN Task Force Recommendations. Performed By: #### 4 6124 ####[facility] [address] [place] [address] 93206 Glenn Gudino M.D. [id number] Creatinine [Mass/Vol] 2.31 mg/dL High 0.60-1.10 [facility] Comment on above: Order Comment: [facility] has implemented the eGFR calculation approach that does not have a coefficient for race that conforms to the NKF-ASN Task Force Recommendations. Performed By: #### 4 6124 ####[facility] [address] [place] [address] 29439 Glenn Gudino M.D. [id number] EGFR 24 mL/min/1.73 m2 Low >=60 [facility] Comment on above: Order Comment: [facility] has implemented the eGFR calculation approach that does not have a coefficient for race that conforms to the NKF-ASN Task Force Recommendations. Result Comment: Joi mated GFR was calculated using the 2020 CKD-EPI creatinine equation. Performed By: #### 4 6124 ####[facility] [address] [place] [address] 77740 Glenn Gudino M.D. [id number] Glucose [Mass/Vol] 115 mg/dL High 65-99 [facility] Comment on above: Order Comment: [facility] has implemented the eGFR calculation approach that does not have a coefficient for race that conforms to the NKF-ASN Task Force Recommendations. Performed By: #### 4 6124 ####[facility] [address] [place] [address] 05050 Glenn Gudino M.D. [id number] HCO3 (Bld) [Moles/Vol] 18 mmol/L Low 21-32 [facility] Comment on above: Order Comment: [facility] has implemented the eGFR calculation approach that does not have a coefficient for race that conforms to the NKF-ASN Task Force Recommendations. Performed By: #### 4 6124 ####[facility] [address] [place] [address] 53152 Glenn Gudino M.D. [id number] Potassium [Moles/Vol] 4.8 mmol/L Normal 3.5-5.1 [facility] Comment on above: Order Comment: [facility] has implemented the eGFR calculation approach that does not have a coefficient for race that conforms to the NKF-ASN Task Force Recommendations. Result Comment: Slig htly Hemolyzed Performed By: #### 4 6124 ####[facility] [address] [place] [address] 96231 Glenn Gudino M.D. [id number] Sodium [Moles/Vol] 138 mmol/L Normal 135-145 [facility] Comment on above: Order Comment: [facility] has implemented the eGFR calculation approach that does not have a coefficient for race that conforms to the NKF-ASN Task Force Recommendations. Performed By: #### 4 6124 ####[facility] [address] [place] [address] 33843 Glenn Gudino M.D. [id number] Urea nitrogen [Mass/Vol] 33 mg/dL High 8-25 [facility] Comment on above: Order Comment: [facility] has implemented the eGFR calculation approach that does not have a coefficient for race that conforms to the NKF-ASN Task Force Recommendations. Performed By: #### 4 6124 ####[facility] [address] [place] [address] 85295 Glenn Gudino M.D. [id number] Urea nitrogen/Creatinine [Mass ratio] 14.3 mg/mg Normal 10.0-20.0 [facility] Comment on above: Order Comment: [facility] has implemented the eGFR calculation approach that does not have a coefficient for race that conforms to the NKF-ASN Task Force Recommendations. Performed By: #### 4 6124 ####[facility] [address] [place] [address] 70823 Glenn Gudino M.D. [id number] Anion gap [Moles/Vol] 16 mmol/L Normal 10-20 [facility] Comment on above: Order Comment: [facility] has implemented the eGFR calculation approach that does not have a coefficient for race that conforms to the NKF-ASN Task Force Recommendations. Performed By: #### 4 6124 ####[facility] [address] [place] [address] 41490 Glenn Gudino M.D. [id number] Calcium [Mass/Vol] 7.7 mg/dL Low 8.4-10.2 [facility] Comment on above: Order Comment: [facility] has implemented the eGFR calculation approach that does not have a coefficient for race that conforms to the NKF-ASN Task Force Recommendations. Performed By: #### 4 6124 ####[facility] [address] [place] [address] 43335 Glenn Gudino M.D. [id number] Chloride [Moles/Vol] 109 mmol/L High 98-108 [facility] Comment on above: Order Comment: [facility] has implemented the eGFR calculation approach that does not have a coefficient for race that conforms to the NKF-ASN Task Force Recommendations. Performed By: #### 4 6124 ####[facility] [address] [place] [address] 29806 Glenn Gudino M.D. [id number] Creatinine [Mass/Vol] 2.24 mg/dL High 0.60-1.10 [facility] Comment on above: Order Comment: [facility] has implemented the eGFR calculation approach that does not have a coefficient for race that conforms to the NKF-ASN Task Force Recommendations. Performed By: #### 4 6124 ####[facility] [address] [place] [address] 08235 Glenn Gudino M.D. [id number] EGFR 24 mL/min/1.73 m2 Low >=60 [facility] Comment on above: Order Comment: [facility] has implemented the eGFR calculation approach that does not have a coefficient for race that conforms to the NKF-ASN Task Force Recommendations. Result Comment: Joi mated GFR was calculated using the 2020 CKD-EPI creatinine equation. Performed By: #### 4 6124 ####[facility] [address] [place] [address] 52240 Glenn Gudino M.D. [id number] Glucose [Mass/Vol] 73 mg/dL Normal 65-99 [facility] Comment on above: Order Comment: [facility] has implemented the eGFR calculation approach that does not have a coefficient for race that conforms to the NKF-ASN Task Force Recommendations. Performed By: #### 4 6124 ####[facility] [address] [place], [place] [address] Glenn Gudino M.D. [id number] HCO3 (Bld) [Moles/Vol] 18 mmol/L Low 21-32 [facility] Comment on above: Order Comment: [facility] has implemented the eGFR calculation approach that does not have a coefficient for race that conforms to the NKF-ASN Task Force Recommendations. Performed By: #### 4 6124 ####[facility] [address] [place], [place] [address] Glenn Gudino M.D. [id number] Potassium [Moles/Vol] 5.1 mmol/L Normal 3.5-5.1 [facility] Comment on above: Order Comment: [facility] has implemented the eGFR calculation approach that does not have a coefficient for race that conforms to the NKF-ASN Task Force Recommendations. Result Comment: Slig htly Hemolyzed Performed By: #### 4 6124 ####[facility] [address] [place], [place] [address] Glenn Gudino M.D. [id number] Sodium [Moles/Vol] 138 mmol/L Normal 135-145 [facility] Comment on above: Order Comment: [facility] has implemented the eGFR calculation approach that does not have a coefficient for race that conforms to the NKF-ASN Task Force Recommendations. Performed By: #### 4 6124 ####[facility] [address] [place] [address] 13250 Glenn Gudino M.D. [id number] Urea nitrogen [Mass/Vol] 32 mg/dL High 8-25 [facility] Comment on above: Order Comment: [facility] has implemented the eGFR calculation approach that does not have a coefficient for race that conforms to the NKF-ASN Task Force Recommendations. Performed By: #### 4 6124 ####[facility] [address] [place] [address] 73461 Glenn Gudino M.D. [id number] Urea nitrogen/Creatinine [Mass ratio] 14.3 mg/mg Normal 10.0-20.0 [facility] Comment on above: Order Comment: [facility] has implemented the eGFR calculation approach that does not have a coefficient for race that conforms to the NKF-ASN Task Force Recommendations. Performed By: #### 4 6124 ####[facility] [address] [place] [address] 31920 Glenn Gudino M.D. [id number] Anion gap [Moles/Vol] 16 mmol/L Normal 10-20 [facility] Comment on above: Order Comment: [facility] has implemented the eGFR calculation approach that does not have a coefficient for race that conforms to the NKF-ASN Task Force Recommendations. Performed By: #### 4 6124 ####[facility] [address] [place] [address] 76423 Glenn Gudino M.D. [id number] Calcium [Mass/Vol] 7.4 mg/dL Low 8.4-10.2 [facility] Comment on above: Order Comment: [facility] has implemented the eGFR calculation approach that does not have a coefficient for race that conforms to the NKF-ASN Task Force Recommendations. Performed By: #### 4 6124 ####[facility] [address] [place] [address] 75560 Glenn Gudino M.D. [id number] Chloride [Moles/Vol] 110 mmol/L High 98-108 [facility] Comment on above: Order Comment: [facility] has implemented the eGFR calculation approach that does not have a coefficient for race that conforms to the NKF-ASN Task Force Recommendations. Performed By: #### 4 6125 ####[facility] [address] [place] [address] 67520 Glenn Gudino M.D. [id number] Creatinine [Mass/Vol] 2.19 mg/dL High 0.60-1.10 [facility] Comment on above: Order Comment: [facility] has implemented the eGFR calculation approach that does not have a coefficient for race that conforms to the NKF-ASN Task Force Recommendations. Performed By: #### 4 6124 ####[facility] [address] [place] [address] Glenn Gudino M.D. [id number] EGFR 25 mL/min/1.73 m2 Low >=60 [facility] Comment on above: Order Comment: [facility] has implemented the eGFR calculation approach that does not have a coefficient for race that conforms to the NKF-ASN Task Force Recommendations. Result Comment: Joi mated GFR was calculated using the 2020 CKD-EPI creatinine equation. Performed By: #### 4 6124 ####[facility] [address] [place] [address] 24731 Glenn Gudino M.D. [id number] Glucose [Mass/Vol] 95 mg/dL Normal 65-99 [facility] Comment on above: Order Comment: [facility] has implemented the eGFR calculation approach that does not have a coefficient for race that conforms to the NKF-ASN Task Force Recommendations. Performed By: #### 4 6124 ####[facility] [address] [place] [address] 13949 Glenn Gudino M.D. [id number] HCO3 (Bld) [Moles/Vol] 17 mmol/L Low 21-32 [facility] Comment on above: Order Comment: [facility] has implemented the eGFR calculation approach that does not have a coefficient for race that conforms to the NKF-ASN Task Force Recommendations. Performed By: #### 4 6124 ####[facility] [address] [place] [address] 85606 Glenn Gudino M.D. [id number] Potassium [Moles/Vol] 4.6 mmol/L Normal 3.5-5.1 [facility] Comment on above: Order Comment: [facility] has implemented the eGFR calculation approach that does not have a coefficient for race that conforms to the NKF-ASN Task Force Recommendations. Performed By: #### 4 6124 ####[facility] [address] [place], [place] [address] Glenn Gudino M.D. [id number] Sodium [Moles/Vol] 138 mmol/L Normal 135-145 [facility] Comment on above: Order Comment: [facility] has implemented the eGFR calculation approach that does not have a coefficient for race that conforms to the NKF-ASN Task Force Recommendations. Performed By: #### 4 6124 ####[facility] [address] [place], [place] [address] Glenn Gudino M.D. [id number] Urea nitrogen [Mass/Vol] 31 mg/dL High 8-25 [facility] Comment on above: Order Comment: [facility] has implemented the eGFR calculation approach that does not have a coefficient for race that conforms to the NKF-ASN Task Force Recommendations. Performed By: #### 4 6124 ####[facility] [address] [place] [address] 27577 Glenn Gudino M.D. [id number] Urea nitrogen/Creatinine [Mass ratio] 14.2 mg/mg Normal 10.0-20.0 [facility] Comment on above: Order Comment: [facility] has implemented the eGFR calculation approach that does not have a coefficient for race that conforms to the NKF-ASN Task Force Recommendations. Performed By: #### 4 6124 ####[facility] [address] [place] [address] 30811 Glenn Gudino M.D. [id number] Anion gap [Moles/Vol] 18 mmol/L Normal 10-20 [facility] Comment on above: Order Comment: [facility] has implemented the eGFR calculation approach that does not have a coefficient for race that conforms to the NKF-ASN Task Force Recommendations. Performed By: #### 4 6124 ####[facility] [address] [place] [address] 36962 Glenn Gudino M.D. [id number] Calcium [Mass/Vol] 7.0 mg/dL Low 8.4-10.2 [facility] Comment on above: Order Comment: [facility] has implemented the eGFR calculation approach that does not have a coefficient for race that conforms to the NKF-ASN Task Force Recommendations. Performed By: #### 4 6124 ####[facility] [address] [place], [place] [address] Glenn Gudino M.D. [id number] Chloride [Moles/Vol] 109 mmol/L High 98-108 [facility] Comment on above: Order Comment: [facility] has implemented the eGFR calculation approach that does not have a coefficient for race that conforms to the NKF-ASN Task Force Recommendations. Performed By: #### 4 6124 ####[facility] [address] [place] [address] 94683 Glenn Gudino M.D. [id number] Creatinine [Mass/Vol] 1.78 mg/dL High 0.60-1.10 [facility] Comment on above: Order Comment: [facility] has implemented the eGFR calculation approach that does not have a coefficient for race that conforms to the NKF-ASN Task Force Recommendations. Performed By: #### 4 6124 ####[facility] [address] [place] [address] 93862 Glenn Gudino M.D. [id number] EGFR 32 mL/min/1.73 m2 Low >=60 [facility] Comment on above: Order Comment: [facility] has implemented the eGFR calculation approach that does not have a coefficient for race that conforms to the NKF-ASN Task Force Recommendations. Result Comment: Joi mated GFR was calculated using the 2020 CKD-EPI creatinine equation. Performed By: #### 4 6124 ####[facility] [address] [place] [address] 97619 Glenn Gudino M.D. [id number] Glucose [Mass/Vol] 140 mg/dL High 65-99 [facility] Comment on above: Order Comment: [facility] has implemented the eGFR calculation approach that does not have a coefficient for race that conforms to the NKF-ASN Task Force Recommendations. Performed By: #### 4 6124 ####[facility] [address] [place] [address] 64171 Glenn Gudino M.D. [id number] HCO3 (Bld) [Moles/Vol] 17 mmol/L Low 21-32 [facility] Comment on above: Order Comment: [facility] has implemented the eGFR calculation approach that does not have a coefficient for race that conforms to the NKF-ASN Task Force Recommendations. Performed By: #### 4 6124 ####[facility] [address] [place] [address] 65547 Glenn Gudino M.D. [id number] Sodium [Moles/Vol] 139 mmol/L Normal 135-145 [facility] Comment on above: Order Comment: [facility] has implemented the eGFR calculation approach that does not have a coefficient for race that conforms to the NKF-ASN Task Force Recommendations. Performed By: #### 4 6127 ####[facility] [address] [place] [address] 58736 Glenn Gudino M.D. [id number] Urea nitrogen [Mass/Vol] 29 mg/dL High 8-25 [facility] Comment on above: Order Comment: [facility] has implemented the eGFR calculation approach that does not have a coefficient for race that conforms to the NKF-ASN Task Force Recommendations. Performed By: #### 4 6114 ####[facility] [address] [place], [place] [address] Glenn Gudino M.D. [id number] Urea nitrogen/Creatinine [Mass ratio] 16.3 mg/mg Normal 10.0-20.0 [facility] Comment on above: Order Comment: [facility] has implemented the eGFR calculation approach that does not have a coefficient for race that conforms to the NKF-ASN Task Force Recommendations. Performed By: #### 4 6124 ####[facility] [address] [place] [address] Glenn Gudino M.D. [id number] CALCIUM, IONIZEDon CALCIUM IONIZED 4.4 mg/dL Low 4.5-5.3 [facility] Comment on above: Performed By: #### 4 5190 ####[facility] [address] [place], [place] [address] Glenn Gudino M.D. [id number] CBCon 01-25-2024 AUTO NRBC 0.0 % Normal [facility] Comment on above: Performed By: #### 4 [id number] ####[facility] [address] [place], [place] [address] Glenn Gudino M.D. [id number] AUTO NRBC ABS COUNT 0.00 K/mcL Normal 0.00-0.00 [facility] Comment on above: Performed By: #### 4 [id number] ####[facility] [address] [place], [place] [address] Glenn Gudino M.D. [id number] Erythrocyte distribution width (RBC) [Ratio] 16.8 % High 11.6-14.8 [facility] Comment on above: Performed By: #### 4 [id number] ####[facility] [address] [place], [place] [address] Glenn Gudino M.D. [id number] Hematocrit (Bld) [Volume fraction] 34.2 % Low 36.0-46.0 [facility] Comment on above: Performed By: #### 4 [id number] ####[facility] [address] [place] [address] Glenn Gudino M.D. [id number] Hemoglobin (Bld) [Mass/Vol] 11.4 g/dL Low 12.0-16.0 [facility] Comment on above: Performed By: #### 4 [id number] ####[facility] [address] [place] [address] Glenn Gudino M.D. [id number] MCH (RBC) [Entitic mass] 28.8 pg Normal 26.0-34.0 [facility] Comment on above: Performed By: #### 4 [id number] ####[facility] [address] [place] [address] Glenn Gudino M.D. [id number] MCV (RBC) [Entitic vol] 86.4 fL Normal 80.0-100.0 [facility] Comment on above: Performed By: #### 4 [id number] ####[facility] [address] [place] [address] Glenn Gudino M.D. [id number] MEAN CORPUSCULAR HEMOGLOBIN CONC 33.3 g/dL Normal 31.0-37.0 [facility] Comment on above: Performed By: #### 4 [id number] ####[facility] [address] [place] [address] Glenn Gudino M.D. [id number] Platelet mean volume (Bld) [Entitic vol] 11.0 fL Normal 9.4-12.4 [facility] Comment on above: Performed By: #### 4 [id number] ####[facility] [address] [place], [place] [address] Glenn Gudino M.D. [id number] Platelets (Bld) [#/Vol] 111 10*3/uL Low 150-400 [facility] Comment on above: Performed By: #### 4 [id number] ####[facility] [address] [place], [place] [address] Glenn Gudino M.D. [id number] RBC (Bld) [#/Vol] 3.96 10*6/uL Low 4.00-5.20 [facility] Comment on above: Performed By: #### 4 [id number] ####[facility] [address] [place] [address] Glenn Gudino M.D. [id number] WBC (Bld) [#/Vol] 12.12 10*3/uL High 4.50-11.00 [facility] Comment on above: Performed By: #### 4 [id number] ####[facility] [address] [place] [address] Glenn Gudino M.D. [id number] AUTO NRBC 0.0 % Normal [facility] Comment on above: Performed By: #### 4 [id number] ####[facility] [address] [place], [place] [address] Glenn Gudino M.D. [id number] AUTO NRBC ABS COUNT 0.00 K/mcL Normal 0.00-0.00 [facility] Comment on above: Performed By: #### 4 [id number] ####[facility] [address] [place], [place] [address] Glenn Gudino M.D. [id number] Erythrocyte distribution width (RBC) [Ratio] 16.3 % High 11.6-14.8 [facility] Comment on above: Performed By: #### 4 5218 ####[facility] [address] [place], [place] [address] Glenn Gudino M.D. [id number] Hematocrit (Bld) [Volume fraction] 36.7 % Normal 36.0-46.0 [facility] Comment on above: Performed By: #### 4 1218 ####[facility] [address] [place], [place] [address] Glenn Gudino M.D. [id number] Hemoglobin (Bld) [Mass/Vol] 12.7 g/dL Normal 12.0-16.0 [facility] Comment on above: Performed By: #### 4 [id number] ####[facility] [address] [place] [address] Glenn Gudino M.D. [id number] MCH (RBC) [Entitic mass] 29.5 pg Normal 26.0-34.0 [facility] Comment on above: Performed By: #### 4 [id number] ####[facility] [address] [place] [address] Glenn Gudino M.D. [id number] MCV (RBC) [Entitic vol] 85.2 fL Normal 80.0-100.0 [facility] Comment on above: Performed By: #### 4 5218 ####[facility] [address] [place], [place] [address] Glenn Gudino M.D. [id number] MEAN CORPUSCULAR HEMOGLOBIN CONC 34.6 g/dL Normal 31.0-37.0 [facility] Comment on above: Performed By: #### 4 5218 ####[facility] [address] [place], [place] [address] Glenn Gudino M.D. [id number] Platelet mean volume (Bld) [Entitic vol] 10.3 fL Normal 9.4-12.4 [facility] Comment on above: Performed By: #### 4 [id number] ####[facility] [address] [place], [place] [address] Glenn Gudino M.D. [id number] Platelets (Bld) [#/Vol] 126 10*3/uL Low 150-400 [facility] Comment on above: Result Comment: Resu lts checked Performed By: #### 4 [id number] ####[facility] [address] [place] [address] Glenn Gudino M.D. [id number] RBC (Bld) [#/Vol] 4.31 10*6/uL Normal 4.00-5.20 [facility] Comment on above: Performed By: #### 4 5218 ####[facility] [address] [place], [place] [address] Glenn Gudino M.D. [id number] WBC (Bld) [#/Vol] 12.24 10*3/uL High 4.50-11.00 [facility] Comment on above: Performed By: #### 4 5218 ####[facility] [address] [place] [address] Glenn Gudino M.D. [id number] CPKon 01-25-2024 CPK 364 U/L High 40-170 [facility] Comment on above: Performed By: #### 4 8261 ####[facility] [address] [place], [place] [address] Glenn Gudino M.D. [id number] MAGNESIUM LEVELon 01-25-2024 Magnesium [Mass/Vol] 2.5 mg/dL High 1.6-2.4 [facility] Comment on above: Performed By: #### 4 6109 ####[facility] [address] [place], [place] [address] Glenn Gudino M.D. [id number] Magnesium [Mass/Vol] 2.5 mg/dL High 1.6-2.4 [facility] Comment on above: Performed By: #### 4 6109 ####[facility] [address] [place], [place] [address] Glenn Gudino M.D. [id number] POC ARTERIAL BLOOD GAS PANEL [facility] 01-25-2024 BASE EXCESS, ARTERIAL -5.1 Low -2.0-2.0 [facility] Comment on above: Performed By: #### 4 8716 ####[facility] [address] [place] [address] [id number] [facility] CALCIUM IONIZED 4.4 mg/dL Low 4.5-5.3 [facility] Comment on above: Performed By: #### 4 6716 ####[facility] [address] [place] [address] [id number] [facility] CARBOXYHEMOGLOBIN 1.2 % of total Hb Normal <=1.5 [facility] Comment on above: Result Comment: Refe rence Ranges:Suburban Non-smokers: <1.5%Smokers: 1.5-5.0%Heavy Smokers: 5.0-9.0% Performed By: #### 4 8116 ####[facility] [address] [place] [address] [id number] [facility] Chloride [Moles/Vol] 109 mmol/L High 98-108 [facility] Comment on above: Performed By: #### 4 3516 ####[facility] [address] [place] [address] [id number] [facility] Glucose [Mass/Vol] 78 mg/dL Normal 65-99 [facility] Comment on above: Performed By: #### 4 0316 ####[facility] [address] [place] [address] [id number] [facility] HCO3 (Bld) [Moles/Vol] 19.1 mmol/L Low 22.0-26.0 [facility] Comment on above: Performed By: #### 4 3872 ####[facility] [address] [place] [address] [id number] [facility] Hematocrit (Bld) [Volume fraction] 34.0 % Low 36.0-46.0 [facility] Comment on above: Performed By: #### 4 5273 ####[facility] [address] [place] [address] [id number] [facility] Hemoglobin (Bld) [Mass/Vol] 11.1 g/dL Low 12.0-16.0 [facility] Comment on above: Performed By: #### 4 8716 ####[facility] [address] [place] [address] [id number] [facility] LACTIC ACID, WHOLE BLOOD 1.9 mmol/L Normal 0.6-2.0 [facility] Comment on above: Performed By: #### 4 8716 ####[facility] [address] [place] [address] [id number] [facility] LITER FLOW 4 Normal [facility] Comment on above: Performed By: #### 4 8716 ####[facility] [address] [place] [address] [id number] [facility] METHEMOGLOBIN < Normal 0.0-2.0 [facility] Comment on above: Performed By: #### 4 8716 ####[facility] [address] [place] [address] [id number] [facility] O2HB 97.6 % Normal 94.0-98.0 [facility] Comment on above: Performed By: #### 4 8716 ####[facility] [address] [place] [address] [id number] [facility] Oxygen saturation in Blood 99.3 % High 92.0-99.0 [facility] Comment on above: Performed By: #### 4 5116 ####[facility] [address] [place] [address] [id number] [facility] PCO2 ARTERIAL 32.0 mm Hg Low 35.0-45.0 [facility] Comment on above: Performed By: #### 4 3716 ####[facility] [address] [place] [address] [id number] [facility] PH ARTERIAL 7.39 Normal 7.35-7.45 [facility] Comment on above: Performed By: #### 4 5916 ####[facility] [address] [place] [address] [id number] [facility] PO2 ARTERIAL 132 mm Hg High 80-100 [facility] Comment on above: Performed By: #### 4 8716 ####[facility] [address] [place] [address] [id number] [facility] Potassium [Moles/Vol] 4.6 mmol/L Normal 3.5-5.1 [facility] Comment on above: Performed By: #### 4 8716 ####[facility] [address] [place] [address] [id number] [facility] RESULT NOTIFICATION 08992 [facility] Comment on above: Performed By: #### 4 8716 ####[facility] [address] [place] [address] [id number] [facility] Sodium [Moles/Vol] 134 mmol/L Low 135-145 [facility] Comment on above: Performed By: #### 4 8716 ####[facility] [address] [place] [address] [id number] [facility] POC GLUCOSE [facility] 024 Glucose [Mass/Vol] 79 mg/dL Normal 65-99 [facility] Comment on above: Performed By: #### 4 8432 ####[facility] [address] [place] [address] [id number] [facility] Glucose [Mass/Vol] 74 mg/dL Normal 65-99 [facility] Comment on above: Performed By: #### 4 4482 ####[facility] [address] [place] [address] [id number] [facility] Glucose [Mass/Vol] 96 mg/dL Normal 65-99 [facility] Comment on above: Performed By: #### 4 0551 ####[facility] [address] [place] [address] [id number] [facility] Glucose [Mass/Vol] 65 mg/dL Normal 65-99 [facility] Comment on above: Performed By: #### 4 2433 ####[facility] [address] [place] [address] [id number] [facility] Glucose [Mass/Vol] 34 mg/dL Off scale low 65-99 [facility] Comment on above: Order Comment: Criti cherrie result acted upon time of test. Test performed at bedside. Performed By: #### 4 6932 ####[facility] [address] [place] [address] [id number] [facility] Glucose [Mass/Vol] 77 mg/dL Normal 65-99 [facility] Comment on above: Performed By: #### 4 6932 ####[facility] [address] [place] [address] [id number] [facility] Glucose [Mass/Vol] 50 mg/dL Low 65-99 [facility] Comment on above: Performed By: #### 4 6932 ####[facility] [address] [place] [address] [id number] [facility] Glucose [Mass/Vol] 75 mg/dL Normal 65-99 [facility] Comment on above: Performed By: #### 4 6932 ####[facility] [address] [place] [address] [id number] [facility] Glucose [Mass/Vol] 136 mg/dL High 65-99 [facility] Comment on above: Performed By: #### 4 6932 ####[facility] [address] [place] [address] [id number] [facility] POTASSIUM LEVELon 01-25-2024 Potassium [Moles/Vol] 5.0 mmol/L Normal 3.5-5.1 [facility] Comment on above: Result Comment: Slig htly Hemolyzed Performed By: #### 4 6351 ####[facility] [address] [place] [address] Glenn Gudino M.D. [id number] Order Comment: [facility] has implemented the eGFR calculation approach that does not have a coefficient for race that conforms to the NKF-ASN Task Force Recommendations. Performed By: #### 4 6124 ####[facility] [address] [place] [address] Glenn Gudino M.D. [id number] PT/INRon 01-25-2024 INR Coag (PPP) [Relative time] 1.2 {INR} High 0.8-1.1 [facility] Comment on above: Order Comment: Malcomin g the induction phase of oral anticoagulation, the INR may not reflect the anticoagulation status of the patient. Therapeutic ranges for INR's are:Most clinical situations: INR 2.0-3.0Mechanical Prosthetic Valve: INR 2.5-3.5Critical: INR >5.0 Performed By: #### 4 6391 ####[facility] [address] [place] [address] Glenn Gudino M.D. [id number] PT Coag (PPP) [Time] 15.5 s High 11.8-14.3 [facility] Comment on above: Order Comment: Jennifer g the induction phase of oral anticoagulation, the INR may not reflect the anticoagulation status of the patient. Therapeutic ranges for INR's are:Most clinical situations: INR 2.0-3.0Mechanical Prosthetic Valve: INR 2.5-3.5Critical: INR >5.0 Performed By: #### 4 6391 ####[facility] [address] [place] [address] Glenn Gduino M.D. [id number] RENAL FUNCTION PANELon 01-24 Albumin [Mass/Vol] 2.1 g/dL Low 3.2-5.2 [facility] Comment on above: Order Comment: [facility] has implemented the eGFR calculation approach that does not have a coefficient for race that conforms to the NKF-ASN Task Force Recommendations. Performed By: #### 4 6449 ####[facility] [address] [place] [address] Glenn Gudino M.D. [id number] Anion gap [Moles/Vol] 18 mmol/L Normal 10-20 [facility] Comment on above: Order Comment: [facility] has implemented the eGFR calculation approach that does not have a coefficient for race that conforms to the NKF-ASN Task Force Recommendations. Performed By: #### 4 6449 ####[facility] [address] [place] [address] Glenn Gudino M.D. [id number] Performed By: #### 4 6124 ####[facility] [address] [place] [address] Glenn Gudino M.D. [id number] Calcium [Mass/Vol] 7.5 mg/dL Low 8.4-10.2 [facility] Comment on above: Order Comment: [facility] has implemented the eGFR calculation approach that does not have a coefficient for race that conforms to the NKF-ASN Task Force Recommendations. Performed By: #### 4 6449 ####[facility] [address] [place] [address] Glenn Gudino M.D. [id number] Performed By: #### 4 6124 ####[facility] [address] [place], [place] [address] Glenn Gudino M.D. [id number] Chloride [Moles/Vol] 110 mmol/L High 98-108 [facility] Comment on above: Order Comment: [facility] has implemented the eGFR calculation approach that does not have a coefficient for race that conforms to the NKF-ASN Task Force Recommendations. Performed By: #### 4 6449 ####[facility] [address] [place], [place] [address] Glenn Gudino M.D. [id number] Performed By: #### 4 6124 ####[facility] [address] [place], [place] [address] Glenn Gudino M.D. [id number] Creatinine [Mass/Vol] 1.99 mg/dL High 0.60-1.10 [facility] Comment on above: Order Comment: [facility] has implemented the eGFR calculation approach that does not have a coefficient for race that conforms to the NKF-ASN Task Force Recommendations. Performed By: #### 4 6449 ####[facility] [address] [place] [address] Glenn Gudino M.D. [id number] Performed By: #### 4 6124 ####[facility] [address] [place], [place] [address] Glenn Gudino M.D. [id number] EGFR 28 mL/min/1.73 m2 Low >=60 [facility] Comment on above: Order Comment: [facility] has implemented the eGFR calculation approach that does not have a coefficient for race that conforms to the NKF-ASN Task Force Recommendations. Result Comment: Joi mated GFR was calculated using the 2020 CKD-EPI creatinine equation.Estimated GFR was calculated using the 2020 CKD-EPI creatinine equation. Performed By: #### 4 6449 ####[facility] [address] [place], [place] [address] Glenn Gudino M.D. [id number] Result Comment: Joi mated GFR was calculated using the 2020 CKD-EPI creatinine equation. Performed By: #### 4 6124 ####[facility] [address] [place], [place] [address] Glenn Gudino M.D. [id number] Glucose [Mass/Vol] 127 mg/dL High 65-99 [facility] Comment on above: Order Comment: [facility] has implemented the eGFR calculation approach that does not have a coefficient for race that conforms to the NKF-ASN Task Force Recommendations. Performed By: #### 4 6449 ####[facility] [address] [place] [address] Glenn Gudino M.D. [id number] Performed By: #### 4 6124 ####[facility] [address] [place], [place] [address] Glenn Gudino M.D. [id number] HCO3 (Bld) [Moles/Vol] 17 mmol/L Low 21-32 [facility] Comment on above: Order Comment: [facility] has implemented the eGFR calculation approach that does not have a coefficient for race that conforms to the NKF-ASN Task Force Recommendations. Performed By: #### 4 6449 ####[facility] [address] [place] [address] Glenn Gudino M.D. [id number] Performed By: #### 4 6124 ####[facility] [address] [place] [address] Glenn Gudino M.D. [id number] Phosphate [Mass/Vol] 5.4 mg/dL High 2.8-4.1 [facility] Comment on above: Order Comment: [facility] has implemented the eGFR calculation approach that does not have a coefficient for race that conforms to the NKF-ASN Task Force Recommendations. Performed By: #### 4 6449 ####[facility] [address] [place], [place] [address] Glenn Gudino M.D. [id number] Potassium [Moles/Vol] 5.0 mmol/L Normal 3.5-5.1 [facility] Comment on above: Order Comment: [facility] has implemented the eGFR calculation approach that does not have a coefficient for race that conforms to the NKF-ASN Task Force Recommendations. Result Comment: Slig htly Hemolyzed Performed By: #### 4 6479 ####[facility] [address] [place] [address] Glenn Guidno M.D. [id number] Performed By: #### 4 6101 ####[facility] [address] [place] [address] Glenn Gudino M.D. [id number] Sodium [Moles/Vol] 140 mmol/L Normal 135-145 [facility] Comment on above: Order Comment: [facility] has implemented the eGFR calculation approach that does not have a coefficient for race that conforms to the NKF-ASN Task Force Recommendations. Performed By: #### 4 6449 ####[facility] [address] [place] [address] Glenn Gudino M.D. [id number] Performed By: #### 4 6124 ####[facility] [address] [place], [place] [address] Glenn Gudino M.D. [id number] Urea nitrogen [Mass/Vol] 30 mg/dL High 8-25 [facility] Comment on above: Order Comment: [facility] has implemented the eGFR calculation approach that does not have a coefficient for race that conforms to the NKF-ASN Task Force Recommendations. Performed By: #### 4 6449 ####[facility] [address] [place], [place] [address] Glenn Gudino M.D. [id number] Performed By: #### 4 6124 ####[facility] [address] [place], [place] [address] Glenn Gudino M.D. [id number] Urea nitrogen/Creatinine [Mass ratio] 15.1 mg/mg Normal 10.0-20.0 [facility] Comment on above: Order Comment: [facility] has implemented the eGFR calculation approach that does not have a coefficient for race that conforms to the NKF-ASN Task Force Recommendations. Performed By: #### 4 6449 ####[facility] [address] [place], [place] [address] Glenn Gudino M.D. [id number] Performed By: #### 4 6177 ####[facility] [address] [place] [address] Glenn Gudino M.D. [id number] XR CHEST PA/APon 01-25-2024 XR CHEST PA/AP [facility] Comment on above: Order Comment: Injur y/Trauma or Illness?:Illness/OtherHow long have you had these symptoms (acute/chronic)?:AcuteReason for exam?:ettHistory of cancer?:uSurgeries, chemotherapy, or radiation?:uType of Exam?:OngoingAdditional signs and symptoms?:ett ANTIBODY IDENTIFICATION ARC- Con 01-24-2024 ANTIBODY IDENTIFICATION ARC-C [facility] Comment on above: Performed By: #### A BIDARC_Anti-C ####[facility] [address] [place] [address] Nurys Oneill MD [id number] RMHTS ANTIBODY IDENTIFICATION ARC- FYAon 01-24-2024 ANTIBODY IDENTIFICATION ARC-FYA [facility] Comment on above: Performed By: #### A BIDARC_Anti-Fya ####[facility] [address] [place] [address] Nurys Oneill MD [id number] [facility] ANTIBODY IDENTIFICATION ARC- INCon 01-24-2024 ANTIBODY IDENTIFICATION ARC-INC [facility] Comment on above: Performed By: #### A BIDARC_Inconclusive ####[facility] [address] [place] [address] Nurys Oneill MD [id number] [facility] APTTon 01-24-2024 aPTT Coag (Bld) [Time] 37 s High 23-34 [facility] Comment on above: Order Comment: Thera peutic range for APTT's is 68 - 104 seconds Result Comment: Resu lts checked. Performed By: #### 4 5113 ####[facility] [address] [place] [address] Glenn Gudino M.D. [id number] BASIC METABOLIC PANELon -2 Anion gap [Moles/Vol] 15 mmol/L Normal 10-20 [facility] Comment on above: Order Comment: [facility] has implemented the eGFR calculation approach that does not have a coefficient for race that conforms to the NKF-ASN Task Force Recommendations. Performed By: #### 4 6124 ####[facility] [address] [place], [place] [address] Glenn Gudino M.D. [id number] Calcium [Mass/Vol] 7.6 mg/dL Low 8.4-10.2 [facility] Comment on above: Order Comment: [facility] has implemented the eGFR calculation approach that does not have a coefficient for race that conforms to the NKF-ASN Task Force Recommendations. Performed By: #### 4 6124 ####[facility] [address] [place], [place] [address] Glenn Gudino M.D. [id number] Chloride [Moles/Vol] 111 mmol/L High 98-108 [facility] Comment on above: Order Comment: [facility] has implemented the eGFR calculation approach that does not have a coefficient for race that conforms to the NKF-ASN Task Force Recommendations. Performed By: #### 4 6124 ####[facility] [address] [place], [place] [address] Glenn Gudino M.D. [id number] Creatinine [Mass/Vol] 1.77 mg/dL High 0.60-1.10 [facility] Comment on above: Order Comment: [facility] has implemented the eGFR calculation approach that does not have a coefficient for race that conforms to the NKF-ASN Task Force Recommendations. Performed By: #### 4 6124 ####[facility] [facility] [address] [place] [address] 27426 Glenn Gudino M.D. [id number] EGFR 32 mL/min/1.73 m2 Low >=60 [facility] Comment on above: Order Comment: [facility] has implemented the eGFR calculation approach that does not have a coefficient for race that conforms to the NKF-ASN Task Force Recommendations. Result Comment: Joi mated GFR was calculated using the 2020 CKD-EPI creatinine equation. Performed By: #### 4 6124 ####[facility] [address] [place] [address] 34385 Glenn Gudino M.D. [id number] Glucose [Mass/Vol] 164 mg/dL High 65-99 [facility] Comment on above: Order Comment: [facility] has implemented the eGFR calculation approach that does not have a coefficient for race that conforms to the NKF-ASN Task Force Recommendations. Performed By: #### 4 6124 ####[facility] [address] [place] [address] 79445 Glenn Gudino M.D. [id number] HCO3 (Bld) [Moles/Vol] 18 mmol/L Low 21-32 [facility] Comment on above: Order Comment: [facility] has implemented the eGFR calculation approach that does not have a coefficient for race that conforms to the NKF-ASN Task Force Recommendations. Performed By: #### 4 6124 ####[facility] [address] [place] [address] 20296 Glenn Gudino M.D. [id number] Potassium [Moles/Vol] 4.7 mmol/L Normal 3.5-5.1 [facility] Comment on above: Order Comment: [facility] has implemented the eGFR calculation approach that does not have a coefficient for race that conforms to the NKF-ASN Task Force Recommendations. Performed By: #### 4 6124 ####[facility] [address] [place] [address] 45402 Glenn Gudino M.D. [id number] Sodium [Moles/Vol] 139 mmol/L Normal 135-145 [facility] Comment on above: Order Comment: [facility] has implemented the eGFR calculation approach that does not have a coefficient for race that conforms to the NKF-ASN Task Force Recommendations. Performed By: #### 4 6124 ####[facility] [address] [place] [address] 02449 Glenn Gudino M.D. [id number] Urea nitrogen [Mass/Vol] 27 mg/dL High 8-25 [facility] Comment on above: Order Comment: [facility] has implemented the eGFR calculation approach that does not have a coefficient for race that conforms to the NKF-ASN Task Force Recommendations. Performed By: #### 4 6124 ####[facility] [address] [place] [address] 26837 Glenn Gudino M.D. [id number] Urea nitrogen/Creatinine [Mass ratio] 15.3 mg/mg Normal 10.0-20.0 [facility] Comment on above: Order Comment: [facility] has implemented the eGFR calculation approach that does not have a coefficient for race that conforms to the NKF-ASN Task Force Recommendations. Performed By: #### 4 6124 ####[facility] [address] [place] [address] 18617 Glenn Gudino M.D. [id number] Anion gap [Moles/Vol] 16 mmol/L Normal 10-20 [facility] Comment on above: Order Comment: [facility] has implemented the eGFR calculation approach that does not have a coefficient for race that conforms to the NKF-ASN Task Force Recommendations. Performed By: #### 4 6124 ####[facility] [address] [place] [address] 80631 Glenn Gudino M.D. [id number] Performed By: #### 4 6126 ####[facility] [address] [place] [address] 86345 Glenn Gudino M.D. [id number] Calcium [Mass/Vol] 6.2 mg/dL Low 8.4-10.2 [facility] Comment on above: Order Comment: [facility] has implemented the eGFR calculation approach that does not have a coefficient for race that conforms to the NKF-ASN Task Force Recommendations. Performed By: #### 4 6124 ####[facility] [address] [place] [address] Glenn Gudino M.D. [id number] Performed By: #### 4 6126 ####[facility] [address] [place], [place] [address] Glenn Gudino M.D. [id number] Chloride [Moles/Vol] 115 mmol/L High 98-108 [facility] Comment on above: Order Comment: [facility] has implemented the eGFR calculation approach that does not have a coefficient for race that conforms to the NKF-ASN Task Force Recommendations. Performed By: #### 4 6124 ####[facility] [address] [place] [address] Glenn Gudino M.D. [id number] Performed By: #### 4 6126 ####[facility] [address] [place], [place] [address] Glenn Gudino M.D. [id number] Creatinine [Mass/Vol] 1.54 mg/dL High 0.60-1.10 [facility] Comment on above: Order Comment: [facility] has implemented the eGFR calculation approach that does not have a coefficient for race that conforms to the NKF-ASN Task Force Recommendations. Performed By: #### 4 6124 ####[facility] [address] [place], [place] [address] Glenn Gudino M.D. [id number] Performed By: #### 4 6126 ####[facility] [address] [place], [place] [address] Glenn Gudino M.D. [id number] EGFR 38 mL/min/1.73 m2 Low >=60 [facility] Comment on above: Order Comment: [facility] has implemented the eGFR calculation approach that does not have a coefficient for race that conforms to the NKF-ASN Task Force Recommendations. Result Comment: Joi mated GFR was calculated using the 2020 CKD-EPI creatinine equation.Estimated GFR was calculated using the 2020 CKD-EPI creatinine equation. Performed By: #### 4 6136 ####[facility] [address] [place], [place] [address] Glenn Gudino M.D. [id number] Result Comment: Joi mated GFR was calculated using the 2020 CKD-EPI creatinine equation. Performed By: #### 4 6196 ####[facility] [address] [place], [place] [address] Glenn Gudino M.D. [id number] Glucose [Mass/Vol] 122 mg/dL High 65-99 [facility] Comment on above: Order Comment: [facility] has implemented the eGFR calculation approach that does not have a coefficient for race that conforms to the NKF-ASN Task Force Recommendations. Performed By: #### 4 6124 ####[facility] [address] [place] [address] Glenn Gudino M.D. [id number] Performed By: #### 4 6126 ####[facility] [address] [place], [place] [address] Glenn Gudino M.D. [id number] HCO3 (Bld) [Moles/Vol] 13 mmol/L Low 21-32 [facility] Comment on above: Order Comment: [facility] has implemented the eGFR calculation approach that does not have a coefficient for race that conforms to the NKF-ASN Task Force Recommendations. Performed By: #### 4 6136 ####[facility] [address] [place], [place] [address] Glenn Gudino M.D. [id number] Performed By: #### 4 6126 ####[facility] [address] [place], [place] [address] Glenn Gudino M.D. [id number] Potassium [Moles/Vol] 5.1 mmol/L Normal 3.5-5.1 [facility] Comment on above: Order Comment: [facility] has implemented the eGFR calculation approach that does not have a coefficient for race that conforms to the NKF-ASN Task Force Recommendations. Result Comment: Slig htly Hemolyzed Performed By: #### 4 6155 ####[facility] [address] [place] [address] Glenn Gudino M.D. [id number] Performed By: #### 4 6126 ####[facility] [address] [place] [address] Glenn Gudino M.D. [id number] Sodium [Moles/Vol] 139 mmol/L Normal 135-145 [facility] Comment on above: Order Comment: [facility] has implemented the eGFR calculation approach that does not have a coefficient for race that conforms to the NKF-ASN Task Force Recommendations. Performed By: #### 4 6124 ####[facility] [address] [place] [address] Glenn Gudino M.D. [id number] Performed By: #### 4 6126 ####[facility] [address] [place], [place] [address] Glenn Gudino M.D. [id number] Urea nitrogen [Mass/Vol] 25 mg/dL Normal 8-25 [facility] Comment on above: Order Comment: [facility] has implemented the eGFR calculation approach that does not have a coefficient for race that conforms to the NKF-ASN Task Force Recommendations. Performed By: #### 4 6146 ####[facility] [address] [place] [address] Glenn Gudino M.D. [id number] Performed By: #### 4 6110 ####[facility] [address] [place] [address] Glenn Gudino M.D. [id number] Urea nitrogen/Creatinine [Mass ratio] 16.2 mg/mg Normal 10.0-20.0 [facility] Comment on above: Order Comment: [facility] has implemented the eGFR calculation approach that does not have a coefficient for race that conforms to the NKF-ASN Task Force Recommendations. Performed By: #### 4 6124 ####[facility] [address] [place], [place] [address] Glenn Gudino M.D. [id number] Performed By: #### 4 6126 ####[facility] [address] [place], [place] [address] Glenn Gudino M.D. [id number] CALCIUM, IONIZEDon CALCIUM IONIZED 4.5 mg/dL Normal 4.5-5.3 [facility] Comment on above: Performed By: #### 4 5190 ####[facility] [address] [place] [address] 17111 Glenn Gudino M.D. [id number] CBCon 01-24-2024 AUTO NRBC 0.0 % Normal [facility] Comment on above: Performed By: #### 4 [id number] ####[facility] [address] [place] [address] 94833 Glenn Gudino M.D. [id number] AUTO NRBC ABS COUNT 0.00 K/mcL Normal 0.00-0.00 [facility] Comment on above: Performed By: #### 4 [id number] ####[facility] [address] [place] [address] 14201 Glenn Gudino M.D. [id number] Erythrocyte distribution width (RBC) [Ratio] 16.2 % High 11.6-14.8 [facility] Comment on above: Performed By: #### 4 [id number] ####[facility] [address] [place], [place] [address] Glenn Gudino M.D. [id number] Hematocrit (Bld) [Volume fraction] 32.4 % Low 36.0-46.0 [facility] Comment on above: Performed By: #### 4 [id number] ####[facility] [address] [place], [place] [address] Glenn Gudino M.D. [id number] Hemoglobin (Bld) [Mass/Vol] 10.5 g/dL Low 12.0-16.0 [facility] Comment on above: Performed By: #### 4 [id number] ####[facility] [address] [place], [place] [address] Glenn Gudino M.D. [id number] MCH (RBC) [Entitic mass] 29.2 pg Normal 26.0-34.0 [facility] Comment on above: Performed By: #### 4 [id number] ####[facility] [address] [place] [address] Glenn Gudino M.D. [id number] MCV (RBC) [Entitic vol] 90.0 fL Normal 80.0-100.0 [facility] Comment on above: Performed By: #### 4 [id number] ####[facility] [address] [place], [place] [address] Glenn Gudino M.D. [id number] MEAN CORPUSCULAR HEMOGLOBIN CONC 32.4 g/dL Normal 31.0-37.0 [facility] Comment on above: Performed By: #### 4 [id number] ####[facility] [address] [place], [place] [address] Glenn Gudino M.D. [id number] Platelet mean volume (Bld) [Entitic vol] 9.8 fL Normal 9.4-12.4 [facility] Comment on above: Performed By: #### 4 [id number] ####[facility] [address] [place] [address] Glenn Gudino M.D. [id number] Platelets (Bld) [#/Vol] 68 10*3/uL Low 150-400 [facility] Comment on above: Result Comment: Zuleima pheral smear reviewed manually Performed By: #### 4 [id number] ####[facility] [address] [place] [address] Glenn Gudino M.D. [id number] RBC (Bld) [#/Vol] 3.60 10*6/uL Low 4.00-5.20 [facility] Comment on above: Performed By: #### 4 [id number] ####[facility] [address] [place], [place] [address] Glenn Gudino M.D. [id number] WBC (Bld) [#/Vol] 9.35 10*3/uL Normal 4.50-11.00 [facility] Comment on above: Result Comment: Neut rophilia with Left Shift Confirmed. Performed By: #### 4 [id number] ####[facility] [address] [place] [address] Glenn Gudino M.D. [id number] AUTO NRBC 0.0 % Normal [facility] Comment on above: Performed By: #### 4 [id number] ####[facility] [address] [place], [place] [address] Glenn Gudino M.D. [id number] AUTO NRBC ABS COUNT 0.00 K/mcL Normal 0.00-0.00 [facility] Comment on above: Performed By: #### 4 [id number] ####[facility] [address] [place], [place] [address] Glenn Gudino M.D. [id number] Erythrocyte distribution width (RBC) [Ratio] 17.1 % High 11.6-14.8 [facility] Comment on above: Performed By: #### 4 [id number] ####[facility] [address] [place], [place] [address] Glenn Gudino M.D. [id number] Hematocrit (Bld) [Volume fraction] 38.0 % Normal 36.0-46.0 [facility] Comment on above: Result Comment: Resu lts checked Performed By: #### 4 [id number] ####[facility] [address] [place] [address] Glenn Gudino M.D. [id number] Hemoglobin (Bld) [Mass/Vol] 12.3 g/dL Normal 12.0-16.0 [facility] Comment on above: Result Comment: Resu lts checked Performed By: #### 4 [id number] ####[facility] [address] [place] [address] Glenn Gudino M.D. [id number] MCH (RBC) [Entitic mass] 28.0 pg Normal 26.0-34.0 [facility] Comment on above: Performed By: #### 4 [id number] ####[facility] [address] [place] [address] Glenn Gudino M.D. [id number] MCV (RBC) [Entitic vol] 86.4 fL Normal 80.0-100.0 [facility] Comment on above: Performed By: #### 4 [id number] ####[facility] [address] [place] [address] Glenn Gudino M.D. [id number] MEAN CORPUSCULAR HEMOGLOBIN CONC 32.4 g/dL Normal 31.0-37.0 [facility] Comment on above: Performed By: #### 4 5265 ####[facility] [address] [place], [place] [address] Glenn Gudino M.D. [id number] Platelet mean volume (Bld) [Entitic vol] 9.3 fL Low 9.4-12.4 [facility] Comment on above: Performed By: #### 4 2109 ####[facility] [address] [place] [address] 51915 Glenn Gudino M.D. [id number] Platelets (Bld) [#/Vol] 201 10*3/uL Normal 150-400 [facility] Comment on above: Performed By: #### 4 [id number] ####[facility] [address] [place], [place] [address] Glenn Gudino M.D. [id number] RBC (Bld) [#/Vol] 4.40 10*6/uL Normal 4.00-5.20 [facility] Comment on above: Performed By: #### 4 [id number] ####[facility] [address] [place], [place] [address] Glenn Gudino M.D. [id number] WBC (Bld) [#/Vol] 6.12 10*3/uL Normal 4.50-11.00 [facility] Comment on above: Performed By: #### 4 [id number] ####[facility] [address] [place], [place] [address] Glenn Gudino M.D. [id number] CITRATED TEG ([facility] ONLY)on 01-24-2024 (CFF-[place]) CITRATED FUNCTIONAL FIBRINOGEN - MA 12.3 mm Low 15.0-32.0 [facility] Comment on above: Performed By: #### 4 8945 ####[facility] [address] [place], [place] [address] Glenn Gudino M.D. [id number] (CK-LY30) CITRATED KAOLIN - LYSIS 30 MIN AFTER MA 0.0 % Normal 0.0-2.6 [facility] Comment on above: Performed By: #### 4 8969 ####[facility] [address] [place], [place] [address] Glenn Gudino M.D. [id number] (CK-R) CITRATED KAOLIN - REACTION TIME 6.7 min Normal 4.6-9.1 [facility] Comment on above: Performed By: #### 4 8962 ####[facility] [address] [place] [address] 99307 Glenn Gudino M.D. [id number] (EMAIL MARKETING ASSISTANT-[place]) CITRATED RAPID TEG - [place] 41.8 mm Low 52.0-70.0 [facility] Comment on above: Performed By: #### 4 8962 ####[facility] [address] [place] [address] 93563 Glenn Gudino M.D. [id number] COMPREHENSIVE METABOLIC PANE [place]dal[place] 01-24-2024 Albumin [Mass/Vol] 1.1 g/dL Low 3.2-5.2 [facility] Comment on above: Order Comment: [facility] has implemented the eGFR calculation approach that does not have a coefficient for race that conforms to the NKF-ASN Task Force Recommendations. Performed By: #### 4 6126 ####[facility] [address] [place] [address] 24443 Glenn Gudino M.D. [id number] ALP [Catalytic activity/Vol] 23 U/L Low 40-150 [facility] Comment on above: Order Comment: [facility] has implemented the eGFR calculation approach that does not have a coefficient for race that conforms to the NKF-ASN Task Force Recommendations. Performed By: #### 4 6126 ####[facility] [address] [place] [address] 67800 Glenn Gudino M.D. [id number] ALT [Catalytic activity/Vol] 10 U/L Normal 0-35 U/L [facility] Comment on above: Order Comment: [facility] has implemented the eGFR calculation approach that does not have a coefficient for race that conforms to the NKF-ASN Task Force Recommendations. Performed By: #### 4 6126 ####[facility] [address] [place], [place] [address] Glenn Gudino M.D. [id number] AST [Catalytic activity/Vol] 27 U/L Normal 0-35 U/L [facility] Comment on above: Order Comment: [facility] has implemented the eGFR calculation approach that does not have a coefficient for race that conforms to the NKF-ASN Task Force Recommendations. Result Comment: Slig htly Hemolyzed Performed By: #### 4 6126 ####[facility] [address] [place] [address] 03958 Glenn Gudino M.D. [id number] BILIRUBIN TOTAL < Normal 0.0-1.3 [facility] Comment on above: Order Comment: [facility] has implemented the eGFR calculation approach that does not have a coefficient for race that conforms to the NKF-ASN Task Force Recommendations. Performed By: #### 4 6126 ####[facility] [address] [place] [address] 63960 Glenn Gudino M.D. [id number] Protein [Mass/Vol] 2.5 g/dL Low 6.0-8.0 [facility] Comment on above: Order Comment: [facility] has implemented the eGFR calculation approach that does not have a coefficient for race that conforms to the NKF-ASN Task Force Recommendations. Performed By: #### 4 6126 ####[facility] [address] [place] [address] 17154 Glenn Gudino M.D. [id number] Albumin [Mass/Vol] 2.9 g/dL Low 3.2-5.2 [facility] Comment on above: Order Comment: [facility] has implemented the eGFR calculation approach that does not have a coefficient for race that conforms to the NKF-ASN Task Force Recommendations. Performed By: #### 4 6126 ####[facility] [address] [place] [address] 41022 Glenn Gudino M.D. [id number] ALP [Catalytic activity/Vol] 67 U/L Normal 40-150 [facility] Comment on above: Order Comment: [facility] has implemented the eGFR calculation approach that does not have a coefficient for race that conforms to the NKF-ASN Task Force Recommendations. Performed By: #### 4 6126 ####[facility] [address] [place], [place] [address] Glenn Gudino M.D. [id number] ALT [Catalytic activity/Vol] 11 U/L Normal 0-35 U/L [facility] Comment on above: Order Comment: [facility] has implemented the eGFR calculation approach that does not have a coefficient for race that conforms to the NKF-ASN Task Force Recommendations. Performed By: #### 4 6126 ####[facility] [address] [place], [place] [address] Glenn Gudino M.D. [id number] Anion gap [Moles/Vol] 15 mmol/L Normal 10-20 [facility] Comment on above: Order Comment: [facility] has implemented the eGFR calculation approach that does not have a coefficient for race that conforms to the NKF-ASN Task Force Recommendations. Performed By: #### 4 6126 ####[facility] [address] [place], [place] [address] Glenn Gudino M.D. [id number] AST [Catalytic activity/Vol] 23 U/L Normal 0-35 U/L [facility] Comment on above: Order Comment: [facility] has implemented the eGFR calculation approach that does not have a coefficient for race that conforms to the NKF-ASN Task Force Recommendations. Performed By: #### 4 6126 ####[facility] [address] [place], [place] [address] Glenn Gudino M.D. [id number] Bilirubin [Mass/Vol] 0.6 mg/dL Normal 0.0-1.3 [facility] Comment on above: Order Comment: [facility] has implemented the eGFR calculation approach that does not have a coefficient for race that conforms to the NKF-ASN Task Force Recommendations. Performed By: #### 4 6126 ####[facility] [address] [place] [address] 94856 Glenn Gudino M.D. [id number] Calcium [Mass/Vol] 8.1 mg/dL Low 8.4-10.2 [facility] Comment on above: Order Comment: [facility] has implemented the eGFR calculation approach that does not have a coefficient for race that conforms to the NKF-ASN Task Force Recommendations. Performed By: #### 4 6126 ####[facility] [address] [place] [address] 86816 Glenn Gudino M.D. [id number] Chloride [Moles/Vol] 102 mmol/L Normal 98-108 [facility] Comment on above: Order Comment: [facility] has implemented the eGFR calculation approach that does not have a coefficient for race that conforms to the NKF-ASN Task Force Recommendations. Performed By: #### 4 6126 ####[facility] [address] [place] [address] 21806 Glenn Gudino M.D. [id number] Creatinine [Mass/Vol] 1.88 mg/dL High 0.60-1.10 [facility] Comment on above: Order Comment: [facility] has implemented the eGFR calculation approach that does not have a coefficient for race that conforms to the NKF-ASN Task Force Recommendations. Performed By: #### 4 6126 ####[facility] [address] [place] [address] 76429 Glenn Gudino M.D. [id number] EGFR 30 mL/min/1.73 m2 Low >=60 [facility] Comment on above: Order Comment: [facility] has implemented the eGFR calculation approach that does not have a coefficient for race that conforms to the NKF-ASN Task Force Recommendations. Result Comment: Joi mated GFR was calculated using the 2020 CKD-EPI creatinine equation. Performed By: #### 4 6126 ####[facility] [address] [place] [address] 29597 Glenn Gudino M.D. [id number] Glucose [Mass/Vol] 83 mg/dL Normal 65-99 [facility] Comment on above: Order Comment: [facility] has implemented the eGFR calculation approach that does not have a coefficient for race that conforms to the NKF-ASN Task Force Recommendations. Performed By: #### 4 6126 ####[facility] [address] [place] [address] 48878 Glenn Gudino M.D. [id number] HCO3 (Bld) [Moles/Vol] 20 mmol/L Low 21-32 [facility] Comment on above: Order Comment: [facility] has implemented the eGFR calculation approach that does not have a coefficient for race that conforms to the NKF-ASN Task Force Recommendations. Performed By: #### 4 6126 ####[facility] [address] [place] [address] 96933 Glenn Gudino M.D. [id number] Potassium [Moles/Vol] 4.5 mmol/L Normal 3.5-5.1 [facility] Comment on above: Order Comment: [facility] has implemented the eGFR calculation approach that does not have a coefficient for race that conforms to the NKF-ASN Task Force Recommendations. Performed By: #### 4 6126 ####[facility] [address] [place] [address] 74791 Glenn Gudino M.D. [id number] Protein [Mass/Vol] 6.7 g/dL Normal 6.0-8.0 [facility] Comment on above: Order Comment: [facility] has implemented the eGFR calculation approach that does not have a coefficient for race that conforms to the NKF-ASN Task Force Recommendations. Performed By: #### 4 6126 ####[facility] [address] [place], [place] [address] Glenn Gudino M.D. [id number] Sodium [Moles/Vol] 132 mmol/L Low 135-145 [facility] Comment on above: Order Comment: [facility] has implemented the eGFR calculation approach that does not have a coefficient for race that conforms to the NKF-ASN Task Force Recommendations. Performed By: #### 4 6126 ####[facility] [address] [place] [address] Glenn Gudino M.D. [id number] Urea nitrogen [Mass/Vol] 33 mg/dL High 8-25 [facility] Comment on above: Order Comment: [facility] has implemented the eGFR calculation approach that does not have a coefficient for race that conforms to the NKF-ASN Task Force Recommendations. Performed By: #### 4 6126 ####[facility] [address] [place] [address] Glenn Gudino M.D. [id number] Urea nitrogen/Creatinine [Mass ratio] 17.6 mg/mg Normal 10.0-20.0 [facility] Comment on above: Order Comment: [facility] has implemented the eGFR calculation approach that does not have a coefficient for race that conforms to the NKF-ASN Task Force Recommendations. Performed By: #### 4 6126 ####[facility] [address] [place] [address] Glenn Gudino M.D. [id number] CONSULTon 01-24-2024 CONSULT Normal [facility] ELUTIONARC-WAAon 01-24-2024 ELUTIONARC-WAA Normal [facility] Comment on above: Performed By: #### E [id number]_WAA ####[facility] [address] [place] [address] Nurys Oneill MD [id number] [facility] FIBRINOGENon 01-24-2024 FIBRINOGEN LEVEL 302 mg/dL Normal 224-483 [facility] Comment on above: Performed By: #### 4 5616 ####[facility] [address] [place], [place] [address] Glenn Gudino M.D. [id number] LACTIC ACID, PLASMAon 2023 LACTIC ACID, PLASMA 5.3 mmol/L Off scale high 0.6-2.0 [facility] Comment on above: Performed By: #### 4 6053 ####[facility] [address] [place] [address] Glenn Gudino M.D. [id number] MAGNESIUM LEVELon 01-24-2024 Magnesium [Mass/Vol] 1.3 mg/dL Low 1.6-2.4 [facility] Comment on above: Performed By: #### 4 6109 ####[facility] [address] [place] [address] Glenn Gudino M.D. [id number] LEAD SHIPPER AEROBIC AND A NAEROBIC CULTUREon 01-24-2024 LEAD SHIPPER AEROBIC AND ANAEROBIC CULTURE CULTURE No Growth after 5 days GRAM STAIN RESULT Many RBC Many WBC No Organisms Seen Normal [facility] Comment on above: Performed By: #### L [id number] ####[facility] [address] [place], [place] [address] Glenn Gudino M.D. [id number] LE[employer] AFB CULTUREon 01-24-2024 LEAD [employer] CULTURE AFB CULTURE No Growth of Acid Fast Bacilli after 8 Weeks AFB STAIN (2018) No Acid Fast Bacilli Seen Normal [facility] Comment on above: Performed By: #### L [id number] ####[facility] [address] [place], [place] [address] Glenn Gudino M.D. [id number] LEAD SHIPPER FUNGUS CULTUR Tim 01-24-2024 LEAD SHIPPER FUNGUS CULTURE FUNGUS CULTURE No Fungus Isolated At 4 Weeks FUNGAL SMEAR No Fungal or Yeast Elements Normal [facility] Comment on above: Performed By: #### L [id number] ####[facility] [address] [place] [address] Glenn Gudino M.D. [id number] OP NOTEon 01-24-2024 OP NOTE Normal [facility] OP NOTE Normal [facility] PERIPHERAL SMEAR REVIEW (KETAN HS ONLY)on 01-24-2024 SMEAR REVIEW See Comment Normal [facility] Comment on above: Result Comment: Smea r reviewed for possible immature cells. Performed By: #### C [id number] ####[facility] [address] [place] [address] Glenn Gudino M.D. [id number] PHOSPHORUSon 01-24-2024 Phosphate [Mass/Vol] 4.7 mg/dL High 2.8-4.1 [facility] Comment on above: Performed By: #### 4 6299 ####[facility] [address] [place] [address] Glenn Gudino M.D. [id number] POC ABG SURG - RALSon 2023 BASE EXCESS, ARTERIAL ISTAT -11 Low -2-2 [facility] Comment on above: Order Comment: Criti cherrie result acted upon time of test. Test performed at bedside. Performed By: #### 4 8737 ####[facility] [address] [place] [address] [id number] [facility] Glucose [Mass/Vol] 267 mg/dL High 65-99 [facility] Comment on above: Order Comment: Criti cherrie result acted upon time of test. Test performed at bedside. Performed By: #### 4 8737 ####[facility] [address] [place] [address] [id number] [facility] HCO3 (Bld) [Moles/Vol] 14.4 mmol/L Low 22.0-26.0 [facility] Comment on above: Order Comment: Criti cherrie result acted upon time of test. Test performed at bedside. Performed By: #### 4 8737 ####[facility] [address] [place] [address] [id number] [facility] Hematocrit (Bld) [Volume fraction] 20 % Low 36-46 [facility] Comment on above: Order Comment: Criti cherrie result acted upon time of test. Test performed at bedside. Performed By: #### 4 8737 ####[facility] [address] [place] [address] [id number] [facility] Hemoglobin (Bld) [Mass/Vol] 6.8 g/dL Off scale low 12.0-16.0 [facility] Comment on above: Order Comment: Criti cherrie result acted upon time of test. Test performed at bedside. Performed By: #### 4 8737 ####[facility] [address] [place] [address] [id number] [facility] Oxygen saturation in Blood 100.0 % High 92.0-99.0 [facility] Comment on above: Order Comment: Criti cherrie result acted upon time of test. Test performed at bedside. Performed By: #### 4 [id number] ####[facility] [address] [place] [address] [id number] [facility] PCO2 ARTERIAL 31.2 mm Hg Low 35.0-45.0 [facility] Comment on above: Order Comment: Criti cherrie result acted upon time of test. Test performed at bedside. Performed By: #### 4 8737 ####[facility] [address] [place] [address] [id number] [facility] PH ARTERIAL 7.27 Low 7.35-7.45 [facility] Comment on above: Order Comment: Criti cherrie result acted upon time of test. Test performed at bedside. Performed By: #### 4 8737 ####[facility] [address] [place] [address] [id number] [facility] PO2 ARTERIAL 464 mm Hg High 80-100 [facility] Comment on above: Order Comment: Criti cherrie result acted upon time of test. Test performed at bedside. Performed By: #### 4 8718 ####[facility] [address] [place] [address] [id number] [facility] POC IONIZED CALCIUM 3.5 mg/dL Low 4.5-5.3 [facility] Comment on above: Order Comment: Criti cherrie result acted upon time of test. Test performed at bedside. Performed By: #### 4 8197 ####[facility] [address] [place] [address] [id number] [facility] Potassium [Moles/Vol] 3.9 mmol/L Normal 3.5-5.1 [facility] Comment on above: Order Comment: Criti cherrie result acted upon time of test. Test performed at bedside. Performed By: #### 4 9744 ####[facility] [address] [place] [address] [id number] [facility] Sodium [Moles/Vol] 140 mmol/L Normal 135-145 [facility] Comment on above: Order Comment: Criti cherrie result acted upon time of test. Test performed at bedside. Performed By: #### 4 7451 ####[facility] [address] [place] [address] [id number] [facility] BASE EXCESS, ARTERIAL ISTAT -12 Low -2-2 [facility] Comment on above: Performed By: #### 4 8671 ####[facility] [address] [place] [address] [id number] [facility] Glucose [Mass/Vol] 164 mg/dL High 65-99 [facility] Comment on above: Performed By: #### 4 1595 ####[facility] [address] [place] [address] [id number] [facility] HCO3 (Bld) [Moles/Vol] 14.8 mmol/L Low 22.0-26.0 [facility] Comment on above: Performed By: #### 4 7487 ####[facility] [address] [place] [address] [id number] [facility] Hematocrit (Bld) [Volume fraction] 32 % Low 36-46 [facility] Comment on above: Performed By: #### 4 7490 ####[facility] [address] [place] [address] [id number] [facility] Hemoglobin (Bld) [Mass/Vol] 10.9 g/dL Low 12.0-16.0 [facility] Comment on above: Performed By: #### 4 8737 ####[facility] [address] [place] [address] [id number] [facility] Oxygen saturation in Blood 100.0 % High 92.0-99.0 [facility] Comment on above: Performed By: #### 4 8737 ####[facility] [address] [place] [address] [id number] [facility] PCO2 ARTERIAL 36.0 mm Hg Normal 35.0-45.0 [facility] Comment on above: Performed By: #### 4 8737 ####[facility] [address] [place] [address] [id number] [facility] PH ARTERIAL 7.22 Low 7.35-7.45 [facility] Comment on above: Performed By: #### 4 8737 ####[facility] [address] [place] [address] [id number] [facility] PO2 ARTERIAL 444 mm Hg High 80-100 [facility] Comment on above: Performed By: #### 4 8737 ####[facility] [address] [place] [address] [id number] [facility] POC IONIZED CALCIUM 3.7 mg/dL Low 4.5-5.3 [facility] Comment on above: Performed By: #### 4 9437 ####[facility] [address] [place] [address] [id number] [facility] Potassium [Moles/Vol] 4.6 mmol/L Normal 3.5-5.1 [facility] Comment on above: Performed By: #### 4 3939 ####[facility] [address] [place] [address] [id number] [facility] Sodium [Moles/Vol] 135 mmol/L Normal 135-145 [facility] Comment on above: Performed By: #### 4 8737 ####[facility] [address] [place] [address] [id number] [facility] POC ACTIVATED CLOTTING TIME - [facility] 01-24-2024 POC ACT KAOLIN 274 seconds Normal [facility] Comment on above: Performed By: #### 4 8122 ####[facility] [address] [place] [address] [id number] [facility] POC ARTERIAL BLOOD GAS PANEL -PULM - [facility] 01-24-2024 BASE EXCESS, ARTERIAL -11.8 Low -2.0-2.0 [facility] Comment on above: Order Comment: Criti cherrie result acted upon time of test. Test performed at bedside. Performed By: #### 4 8716 ####[facility] [address] [place] [address] [id number] [facility] CALCIUM IONIZED 4.4 mg/dL Low 4.5-5.3 [facility] Comment on above: Order Comment: Criti cherrie result acted upon time of test. Test performed at bedside. Performed By: #### 4 8716 ####[facility] [address] [place] [address] [id number] [facility] CARBOXYHEMOGLOBIN 1.5 % of total Hb Normal <=1.5 [facility] Comment on above: Order Comment: Criti cherrie result acted upon time of test. Test performed at bedside. Result Comment: Refe rence Ranges:Suburban Non-smokers: <1.5%Smokers: 1.5-5.0%Heavy Smokers: 5.0-9.0% Performed By: #### 4 8716 ####[facility] [address] [place] [address] [id number] [facility] Chloride [Moles/Vol] 115 mmol/L High 98-108 [facility] Comment on above: Order Comment: Criti cherrie result acted upon time of test. Test performed at bedside. Performed By: #### 4 [id number] ####[facility] [address] [place] [address] [id number] [facility] FIO2 30 Normal [facility] Comment on above: Order Comment: Criti cherrie result acted upon time of test. Test performed at bedside. Performed By: #### 4 [id number] ####[facility] [address] [place] [address] [id number] [facility] Glucose [Mass/Vol] 120 mg/dL High 65-99 [facility] Comment on above: Order Comment: Criti cherrie result acted upon time of test. Test performed at bedside. Performed By: #### 4 [id number] ####[facility] [address] [place] [address] [id number] [facility] HCO3 (Bld) [Moles/Vol] 13.9 mmol/L Low 22.0-26.0 [facility] Comment on above: Order Comment: Criti cherrie result acted upon time of test. Test performed at bedside. Performed By: #### 4 [id number] ####[facility] [address] [place] [address] [id number] [facility] Hematocrit (Bld) [Volume fraction] 34.5 % Low 36.0-46.0 [facility] Comment on above: Order Comment: Criti cherrie result acted upon time of test. Test performed at bedside. Performed By: #### 4 [id number] ####[facility] [address] [place] [address] [id number] [facility] Hemoglobin (Bld) [Mass/Vol] 11.3 g/dL Low 12.0-16.0 [facility] Comment on above: Order Comment: Criti cherrie result acted upon time of test. Test performed at bedside. Performed By: #### 4 [id number] ####[facility] [address] [place] [address] [id number] [facility] LACTIC ACID, WHOLE BLOOD 5.2 mmol/L Off scale high 0.6-2.0 [facility] Comment on above: Order Comment: Criti cherrie result acted upon time of test. Test performed at bedside. Performed By: #### 4 8716 ####[facility] [address] [address] [id number] [facility] METHEMOGLOBIN < Normal 0.0-2.0 [facility] Comment on above: Order Comment: Criti cherrie result acted upon time of test. Test performed at bedside. Performed By: #### 4 [id number] ####[facility] [address] [place] [address] [id number] [facility] O2HB 92.3 % Low 94.0-98.0 [facility] Comment on above: Order Comment: Criti cherrie result acted upon time of test. Test performed at bedside. Performed By: #### 4 [id number] ####[facility] [address] [place] [address] [id number] [facility] Oxygen saturation in Blood 94.1 % Normal 92.0-99.0 [facility] Comment on above: Order Comment: Criti cherrie result acted upon time of test. Test performed at bedside. Performed By: #### 4 [id number] ####[facility] [address] [place] [address] [id number] [facility] PCO2 ARTERIAL 30.3 mm Hg Low 35.0-45.0 [facility] Comment on above: Order Comment: Criti cherrie result acted upon time of test. Test performed at bedside. Performed By: #### 4 [id number] ####[facility] [address] [place] [address] [id number] [facility] PEEP RAD 5 Normal [facility] Comment on above: Order Comment: Criti cherrie result acted upon time of test. Test performed at bedside. Performed By: #### 4 [id number] ####[facility] [address] [place] [address] [id number] [facility] PH ARTERIAL 7.27 Low 7.35-7.45 [facility] Comment on above: Order Comment: Criti cherrie result acted upon time of test. Test performed at bedside. Performed By: #### 4 [id number] ####[facility] [address] [place] [address] [id number] [facility] PO2 ARTERIAL 76 mm Hg Low 80-100 [facility] Comment on above: Order Comment: Criti cherrie result acted upon time of test. Test performed at bedside. Performed By: #### 4 [id number] ####[facility] [address] [place] [address] [id number] [facility] Potassium [Moles/Vol] 4.6 mmol/L Normal 3.5-5.1 [facility] Comment on above: Order Comment: Criti cherrie result acted upon time of test. Test performed at bedside. Performed By: #### 4 [id number] ####[facility] [address] [place] [address] [id number] [facility] RESP RATE RAD 22 [facility] Comment on above: Order Comment: Criti cherrie result acted upon time of test. Test performed at bedside. Performed By: #### 4 [id number] ####[facility] [address] [place] [address] [id number] [facility] RESULT NOTIFICATION Critical results giv en to:[id number] [facility] Comment on above: Order Comment: Criti cherrie result acted upon time of test. Test performed at bedside. Performed By: #### 4 [id number] ####[facility] [address] [place] [address] [id number] [facility] Sodium [Moles/Vol] 134 mmol/L Low 135-145 [facility] Comment on above: Order Comment: Criti cherrie result acted upon time of test. Test performed at bedside. Performed By: #### 4 [id number] ####[facility] [address] [place] [address] [id number] [facility] POC GLUCOSE - [facility] 024 Glucose [Mass/Vol] 154 mg/dL High 65-99 [facility] Comment on above: Performed By: #### 4 6417 ####[facility] [address] [place] [address] [id number] [facility] Glucose [Mass/Vol] 122 mg/dL High 65-99 [facility] Comment on above: Performed By: #### 4 3664 ####[facility] [address] [place] [address] [id number] [facility] POTASSI[facility]on 01-24-2024 Potassium [Moles/Vol] 4.7 mmol/L Normal 3.5-5.1 [facility] Comment on above: Performed By: #### 4 6351 ####[facility] [address] [place] [address] Glenn Gudino M.D. [id number] PT/INRon 01-24-2024 INR Coag (PPP) [Relative time] 1.4 {INR} High 0.8-1.1 [facility] Comment on above: Order Comment: Jennifer retana the induction phase of oral anticoagulation, the INR may not reflect the anticoagulation status of the patient. Therapeutic ranges for INR's are:Most clinical situations: INR 2.0-3.0Mechanical Prosthetic Valve: INR 2.5-3.5Critical: INR >5.0 Performed By: #### 4 6391 ####[facility] [address] [place], [place] [address] Glenn Gudino M.D. [id number] PT Coag (PPP) [Time] 17.5 s High 11.8-14.3 [facility] Comment on above: Order Comment: Jennifer retana the induction phase of oral anticoagulation, the INR may not reflect the anticoagulation status of the patient. Therapeutic ranges for INR's are:Most clinical situations: INR 2.0-3.0Mechanical Prosthetic Valve: INR 2.5-3.5Critical: INR >5.0 Performed By: #### 4 6391 ####[facility] [address] [place], [place] [address] Glenn Gudino M.D. [id number] INR Coag (PPP) [Relative time] 1.6 {INR} High 0.8-1.1 [facility] Comment on above: Order Comment: Jennifer retana the induction phase of oral anticoagulation, the INR may not reflect the anticoagulation status of the patient. Therapeutic ranges for INR's are:Most clinical situations: INR 2.0-3.0Mechanical Prosthetic Valve: INR 2.5-3.5Critical: INR >5.0 Result Comment: Resu lts checked. Performed By: #### 4 6391 ####[facility] [address] [place], [place] [address] Glenn Gudino M.D. [id number] PT Coag (PPP) [Time] 19.5 s High 11.8-14.3 [facility] Comment on above: Order Comment: Durin g the induction phase of oral anticoagulation, the INR may not reflect the anticoagulation status of the patient. Therapeutic ranges for INR's are:Most clinical situations: INR 2.0-3.0Mechanical Prosthetic Valve: INR 2.5-3.5Critical: INR >5.0 Result Comment: Resu lts checked. Performed By: #### 4 6391 ####[facility] [address] [place], [place] [address] Glenn Gudino M.D. [id number] INR Coag (PPP) [Relative time] 1.1 {INR} Normal 0.8-1.1 [facility] Comment on above: Order Comment: Duralfonzo retana the induction phase of oral anticoagulation, the INR may not reflect the anticoagulation status of the patient. Therapeutic ranges for INR's are:Most clinical situations: INR 2.0-3.0Mechanical Prosthetic Valve: INR 2.5-3.5Critical: INR >5.0 Performed By: #### 4 6391 ####[facility] [address] [place], [place] [address] Glenn Gudino M.D. [id number] PT Coag (PPP) [Time] 13.6 s Normal 11.8-14.3 [facility] Comment on above: Order Comment: Durin g the induction phase of oral anticoagulation, the INR may not reflect the anticoagulation status of the patient. Therapeutic ranges for INR's are:Most clinical situations: INR 2.0-3.0Mechanical Prosthetic Valve: INR 2.5-3.5Critical: INR >5.0 Performed By: #### 4 6391 ####[facility] [address] [place], [place] [address] Glenn Gudino M.D. [id number] REFLEX LACTIC ACID, PLASMAon 01-24-2024 LACTIC ACID, PLASMA 2.0 mmol/L Normal 0.6-2.0 [facility] Comment on above: Performed By: #### L [id number] ####[facility] [address] [place], [place] [address] Glenn Gudino M.D. [id number] TISSUE AEROBIC AND ANAEROBIC CULTUREon 01-24-2024 TISSUE AEROBIC AND ANAEROBIC CULTURE CULTURE No Growth after 5 days GRAM STAIN RESULT Many RBC Few WBC No Organisms Seen Normal [facility] Comment on above: Performed By: #### 4 4274 ####[facility] [address] [place] [address] Glenn Gudino M.D. [id number] TISSUE AFB CULTUREon 024 TISSUE AFB CULTURE AFB CULTURE No Growth of Acid Fast Bacilli after 8 Weeks AFB STAIN (2018) No Acid Fast Bacilli Seen [facility] Comment on above: Performed By: #### 4 4273 ####[facility] [address] [place], [place] [address] Glenn Gudino M.D. [id number] TISSUE FUNGUS CULTUREon 12-28 TISSUE FUNGUS CULTURE FUNGUS CULTURE No Fungus Isolated At 4 Weeks FUNGAL SMEAR No Fungal or Yeast Elements Normal [facility] Comment on above: Performed By: #### 4 4275 ####[facility] [address] [place], [place] [address] Glenn Gudino M.D. [id number] TRANSFUSION CONSULTon 2023 TRANSFUSION CONSULT [facility] Comment on above: Performed By: #### 4 8080 ####[facility] [address] [place], [place] [address] Glenn Gudino M.D. [id number] TRIGLYCERIDESon 01-24-2024 Triglyceride [Mass/Vol] 72 mg/dL Normal 30-150 [facility] Comment on above: Result Comment: Lucila onal Cholesterol Education Program Guidelines: TriglycerideNormal: <150 mg/dLBorderline High: 150-199 mg/dLHigh: 200-499 mg/dLVery High: greater than or equal to 500 mg/dL Performed By: #### 4 6606 ####[facility] [address] [place] [address] Glenn Gudino M.D. [id number] TYPE AND SCREENon 01-24-2024 TYPE AND SCREEN ABORH: O Positive AB SCREEN: Positive EXPIRATION DATE: 01/27/2024 23:59 EST Normal [facility] Comment on above: Performed By: #### 4 6619 ####[facility] [address] [place] [address] Nurys Oneill MD [id number] RMHTS XR ABDOMEN /KUB/FLAT PLATE/1 VIEWon 01-24-2024 XR ABDOMEN /KUB/FLAT PLATE/[address] [facility] Comment on above: Order Comment: Injur y/Trauma or Illness?:Illness/OtherHow long have you had these symptoms (acute/chronic)?:UnknownReason for exam?:NG/OG tube placementHistory of cancer?:uSurgeries, chemotherapy, or radiation?:uType of Exam?:UnknownAdditional signs and symptoms?:. XR CHEST PA/APon 01-24-2024 XR CHEST PA/AP [facility] Comment on above: Order Comment: Injur y/Trauma or Illness?:Illness/OtherHow long have you had these symptoms (acute/chronic)?:UnknownReason for exam?:ettHistory of cancer?:uSurgeries, chemotherapy, or radiation?:uType of Exam?:InitialAdditional signs and symptoms?:no XR CHEST PA/AP [facility] Comment on above: Order Comment: Injur y/Trauma or Illness?:Illness/OtherHow long have you had these symptoms (acute/chronic)?:UnknownReason for exam?:intubatedHistory of cancer?:uSurgeries, chemotherapy, or radiation?:uType of Exam?:UnknownAdditional signs and symptoms?:. ANTIBODY IDENTIFICATION-Con 01-23-2024 ANTIBODY IDENTIFICATION-C [facility] Comment on above: Performed By: #### 4 6427_Anti-C ####[facility] [address] [place] [address] Nurys Oneill MD [id number] RMHTS ANTIBODY IDENTIFICATION-FYAo n 01-23-2024 ANTIBODY IDENTIFICATION-FYA [facility] Comment on above: Performed By: #### 4 6427_Anti-Fya ####[facility] [address] [place] [address] Nurys Oneill MD [id number] RMHTS ANTIBODY IDENTIFICATION-WAAo n 01-23-2024 ANTIBODY IDENTIFICATION-WAA [facility] Comment on above: Performed By: #### 4 [id number]_WAA ####[facility] [address] [place] [address] Nurys Oneill MD [id number] RMHTS ANTIBODY IDENTIFICATION-WAA [facility] Comment on above: Performed By: #### 4 [id number]_WAA ####[facility] [address] [place] [address] Nurys Oneill MD [id number] RMHTS C PATIENT ANTIGEN TYPINGon 0 01-23-2024 C PATIENT ANTIGEN TYPING Negative [facility] Comment on above: Performed By: #### P -C ####[facility] [address] [place] [address] Nurys Oneill MD [id number] RMHTS CBCon 01-23-2024 AUTO NRBC 0.0 % [facility] Comment on above: Performed By: #### 4 [id number] ####[facility] [address] [place] [address] Glenn Gudino M.D. [id number] AUTO NRBC ABS COUNT 0.00 K/mcL Normal 0.00-0.00 [facility] Comment on above: Performed By: #### 4 [id number] ####[facility] [address] [place], [place] [address] Glenn Gudino M.D. [id number] Erythrocyte distribution width (RBC) [Ratio] 18.8 % High 11.6-14.8 [facility] Comment on above: Performed By: #### 4 [id number] ####[facility] [address] [place] [address] Glenn Gudino M.D. [id number] Hematocrit (Bld) [Volume fraction] 27.3 % Low 36.0-46.0 [facility] Comment on above: Performed By: #### 4 [id number] ####[facility] [address] [place] [address] Glenn Gudino M.D. [id number] Hemoglobin (Bld) [Mass/Vol] 8.7 g/dL Low 12.0-16.0 [facility] Comment on above: Performed By: #### 4 [id number] ####[facility] [address] [place], [place] [address] Glenn Gudino M.D. [id number] MCH (RBC) [Entitic mass] 27.7 pg Normal 26.0-34.0 [facility] Comment on above: Performed By: #### 4 [id number] ####[facility] [address] [place], [place] [address] Glenn Gudino M.D. [id number] MCV (RBC) [Entitic vol] 86.9 fL Normal 80.0-100.0 [facility] Comment on above: Performed By: #### 4 [id number] ####[facility] [address] [place], [place] [address] Glenn Gudino M.D. [id number] MEAN CORPUSCULAR HEMOGLOBIN CONC 31.9 g/dL Normal 31.0-37.0 [facility] Comment on above: Performed By: #### 4 [id number] ####[facility] [address] [place] [address] Glenn Gudino M.D. [id number] Platelet mean volume (Bld) [Entitic vol] 9.0 fL Low 9.4-12.4 [facility] Comment on above: Performed By: #### 4 [id number] ####[facility] [address] [place] [address] Glenn Gudino M.D. [id number] Platelets (Bld) [#/Vol] 209 10*3/uL Normal 150-400 [facility] Comment on above: Performed By: #### 4 [id number] ####[facility] [address] [place] [address] Glenn Gudino M.D. [id number] RBC (Bld) [#/Vol] 3.14 10*6/uL Low 4.00-5.20 [facility] Comment on above: Performed By: #### 4 [id number] ####[facility] [address] [place], [place] [address] Glenn Gudino M.D. [id number] WBC (Bld) [#/Vol] 7.25 10*3/uL Normal 4.50-11.00 [facility] Comment on above: Performed By: #### 4 [id number] ####[facility] [address] [place], [place] [address] Glenn Gudino M.D. [id number] COMPLEMENT DIRECT ANTIGLOBUL IN TESTon 01-23-2024 COMPLEMENT DIRECT ANTIGLOBULIN TEST Negative Normal [facility] Comment on above: Performed By: #### 4 3404 ####[facility] [address] [place] [address] Nurys Oneill MD [id number] RMS COMPLEMENT DIRECT ANTIGLOBULIN TEST Negative Normal [facility] Comment on above: Performed By: #### 4 2644 ####[facility] [address] [place] [address] Nurys Oneill MD [id number] HTS COMPREHENSIVE METABOLIC PANE Magdaleno 01-23-2024 Albumin [Mass/Vol] 2.7 g/dL Low 3.2-5.2 [facility] Comment on above: Order Comment: [facility] has implemented the eGFR calculation approach that does not have a coefficient for race that conforms to the NKF-ASN Task Force Recommendations. Performed By: #### 4 [id number] ####[facility] [address] [place] [address] Glenn Gudino M.D. [id number] ALP [Catalytic activity/Vol] 74 U/L Normal 40-150 [facility] Comment on above: Order Comment: [facility] has implemented the eGFR calculation approach that does not have a coefficient for race that conforms to the NKF-ASN Task Force Recommendations. Performed By: #### 4 [id number] ####[facility] [address] [place] [address] Glenn Gudino M.D. [id number] ALT [Catalytic activity/Vol] 10 U/L Normal 0-35 U/L [facility] Comment on above: Order Comment: [facility] has implemented the eGFR calculation approach that does not have a coefficient for race that conforms to the NKF-ASN Task Force Recommendations. Performed By: #### 4 6126 ####[facility] [address] [place], [place] [address] Glenn Gudino M.D. [id number] Anion gap [Moles/Vol] 15 mmol/L Normal 10-20 Ignacia [facility] Comment on above: Order Comment: [facility] has implemented the eGFR calculation approach that does not have a coefficient for race that conforms to the NKF-ASN Task Force Recommendations. Performed By: #### 4 6126 ####[facility] [address] [place], [place] [address] Glenn Gudino M.D. [id number] AST [Catalytic activity/Vol] 23 U/L Normal 0-35 U/L [facility] Comment on above: Order Comment: [facility] has implemented the eGFR calculation approach that does not have a coefficient for race that conforms to the NKF-ASN Task Force Recommendations. Performed By: #### 4 6126 ####[facility] [address] [place] [address] Glenn Gudino M.D. [id number] Bilirubin [Mass/Vol] 0.2 mg/dL Normal 0.0-1.3 [facility] Comment on above: Order Comment: [facility] has implemented the eGFR calculation approach that does not have a coefficient for race that conforms to the NKF-ASN Task Force Recommendations. Performed By: #### 4 6126 ####[facility] [address] [place], [place] [address] Glenn Gudino M.D. [id number] Calcium [Mass/Vol] 8.2 mg/dL Low 8.4-10.2 [facility] Comment on above: Order Comment: [facility] has implemented the eGFR calculation approach that does not have a coefficient for race that conforms to the NKF-ASN Task Force Recommendations. Performed By: #### 4 6126 ####[facility] [address] [place], [place] [address] Glenn Gudino M.D. [id number] Chloride [Moles/Vol] 101 mmol/L Normal 98-108 [facility] Comment on above: Order Comment: [facility] has implemented the eGFR calculation approach that does not have a coefficient for race that conforms to the NKF-ASN Task Force Recommendations. Performed By: #### 4 6126 ####[facility] [address] [place], [place] [address] Glenn Gudino M.D. [id number] Creatinine [Mass/Vol] 1.99 mg/dL High 0.60-1.10 [facility] Comment on above: Order Comment: [facility] has implemented the eGFR calculation approach that does not have a coefficient for race that conforms to the NKF-ASN Task Force Recommendations. Performed By: #### 4 6126 ####[facility] [address] [place], [place] [address] Glenn Gudino M.D. [id number] EGFR 28 mL/min/1.73 m2 Low >=60 [facility] Comment on above: Order Comment: [facility] has implemented the eGFR calculation approach that does not have a coefficient for race that conforms to the NKF-ASN Task Force Recommendations. Result Comment: Joi mated GFR was calculated using the 2020 CKD-EPI creatinine equation. Performed By: #### 4 [id number] ####[facility] [address] [place], [place] [address] Glenn Gudino M.D. [id number] Glucose [Mass/Vol] 85 mg/dL Normal 65-99 [facility] Comment on above: Order Comment: [facility] has implemented the eGFR calculation approach that does not have a coefficient for race that conforms to the NKF-ASN Task Force Recommendations. Performed By: #### 4 [id number] ####[facility] [address] [place], [place] [address] Glenn Gudino M.D. [id number] HCO3 (Bld) [Moles/Vol] 19 mmol/L Low 21-32 [facility] Comment on above: Order Comment: [facility] has implemented the eGFR calculation approach that does not have a coefficient for race that conforms to the NKF-ASN Task Force Recommendations. Performed By: #### 4 6126 ####[facility] [address] [place] [address] Glenn Gudino M.D. [id number] Potassium [Moles/Vol] 4.6 mmol/L Normal 3.5-5.1 [facility] Comment on above: Order Comment: [facility] has implemented the eGFR calculation approach that does not have a coefficient for race that conforms to the NKF-ASN Task Force Recommendations. Performed By: #### 4 6126 ####[facility] [address] [place] [address] Glenn Gudino M.D. [id number] Protein [Mass/Vol] 6.5 g/dL Normal 6.0-8.0 [facility] Comment on above: Order Comment: [facility] has implemented the eGFR calculation approach that does not have a coefficient for race that conforms to the NKF-ASN Task Force Recommendations. Performed By: #### 4 6126 ####[facility] [address] [place] [address] Glenn Gudino M.D. [id number] Sodium [Moles/Vol] 130 mmol/L Low 135-145 [facility] Comment on above: Order Comment: [facility] has implemented the eGFR calculation approach that does not have a coefficient for race that conforms to the NKF-ASN Task Force Recommendations. Performed By: #### 4 6126 ####[facility] [address] [place] [address] Glenn Gudino M.D. [id number] Urea nitrogen [Mass/Vol] 36 mg/dL High 8-25 [facility] Comment on above: Order Comment: [facility] has implemented the eGFR calculation approach that does not have a coefficient for race that conforms to the NKF-ASN Task Force Recommendations. Performed By: #### 4 6126 ####[facility] [address] [place] [address] Glenn Gudino M.D. [id number] Urea nitrogen/Creatinine [Mass ratio] 18.1 mg/mg Normal 10.0-20.0 [facility] Comment on above: Order Comment: [facility] has implemented the eGFR calculation approach that does not have a coefficient for race that conforms to the NKF-ASN Task Force Recommendations. Performed By: #### 4 6126 ####[facility] [address] [place] [address] Glenn Gudino M.D. [id number] ELUTION-WAAon 01-23-2024 ELUTION-WAA [facility] Comment on above: Performed By: #### 4 [id number]_WAA ####[facility] [address] [place] [address] Nurys Oneill MD [id number] RMS GIGGon 01-23-[address] [facility] Comment on above: Performed By: #### G IGG ####[facility] [address] [place] [address] Nurys Oneill MD [id number] RMS GIGG Positive [facility] Comment on above: Performed By: #### G IGG ####[facility] [address] [place] [address] Nurys Oneill MD [id number] [facility] LITTLE C PATIENT ANTIGEN TYP ING (STX)on 01-23-2024 LITTLE C PATIENT ANTIGEN TYPING (STX) Positive [facility] Comment on above: Performed By: #### P -Little c ####[facility] [address] [place] [address] Nurys Oneill MD [id number] [facility] PT/INRon 01-23-2024 INR Coag (PPP) [Relative time] 1.0 {INR} Normal 0.8-1.1 [facility] Comment on above: Order Comment: Jennifer retana the induction phase of oral anticoagulation, the INR may not reflect the anticoagulation status of the patient. Therapeutic ranges for INR's are:Most clinical situations: INR 2.0-3.0Mechanical Prosthetic Valve: INR 2.5-3.5Critical: INR >5.0 Performed By: #### 4 6391 ####[facility] [address] [place] [address] Glenn Gudino M.D. [id number] PT Coag (PPP) [Time] 13.3 s Normal 11.8-14.3 [facility] Comment on above: Order Comment: Jennifer retana the induction phase of oral anticoagulation, the INR may not reflect the anticoagulation status of the patient. Therapeutic ranges for INR's are:Most clinical situations: INR 2.0-3.0Mechanical Prosthetic Valve: INR 2.5-3.5Critical: INR >5.0 Performed By: #### 4 6391 ####[facility] [address] [place] [address] Glenn Gudino M.D. [id number] TYPE AND SCREENon 01-23-2024 TYPE AND SCREEN ABORH: O Positive AB SCREEN: Positive EXPIRATION DATE: 01/26/2024 23:59 [facility] Normal [facility] Comment on above: Performed By: #### 4 [id number] ####[facility] [address] [place] [address] Nurys Oneill MD [id number] RMHTS TYPE AND SCREEN ABORH: O Positive AB SCREEN: Positive EXPIRATION DATE: 01/26/2024 23:59 [facility] Comment on above: Performed By: #### 4 [id number] ####[facility] [address] [place] [address] Nurys Oneill MD [id number] RMHTS APTT HEPARIN COVERAGEon 12-28 aPTT Coag (Bld) [Time] 113 s High 23-34 [facility] Comment on above: Order Comment: Thera peutic range for APTT's is 68 - 104 seconds Performed By: #### 4 6848 ####[facility] [address] [place] [address] Glenn Gudino M.D. [id number] aPTT Coag (Bld) [Time] 100 s High 23-34 [facility] Comment on above: Order Comment: Thera peutic range for APTT's is 68 - 104 secondsResults checked. Performed By: #### 4 [id number] ####[facility] [address] [place] [address] Glenn Gudino M.D. [id number] CBCon 01-22-2024 AUTO NRBC 0.0 % Normal [facility] Comment on above: Order Comment: While on heparin Performed By: #### 4 [id number] ####[facility] [address] [place], [place] [address] Glenn Gudino M.D. [id number] AUTO NRBC ABS COUNT 0.00 K/mcL Normal 0.00-0.00 [facility] Comment on above: Order Comment: While on heparin Performed By: #### 4 [id number] ####[facility] [address] [place] [address] Glenn Gudino M.D. [id number] Erythrocyte distribution width (RBC) [Ratio] 18.7 % High 11.6-14.8 [facility] Comment on above: Order Comment: While on heparin Performed By: #### 4 [id number] ####[facility] [address] [place] [address] Glenn Gudino M.D. [id number] Hematocrit (Bld) [Volume fraction] 29.7 % Low 36.0-46.0 [facility] Comment on above: Order Comment: While on heparin Performed By: #### 4 [id number] ####[facility] [address] [place], [place] [address] Glenn Gudino M.D. [id number] Hemoglobin (Bld) [Mass/Vol] 9.3 g/dL Low 12.0-16.0 [facility] Comment on above: Order Comment: While on heparin Performed By: #### 4 [id number] ####[facility] [address] [place], [place] [address] Glenn Gudino M.D. [id number] MCH (RBC) [Entitic mass] 27.4 pg Normal 26.0-34.0 [facility] Comment on above: Order Comment: While on heparin Performed By: #### 4 [id number] ####[facility] [address] [place] [address] Glenn Gudino M.D. [id number] MCV (RBC) [Entitic vol] 87.6 fL Normal 80.0-100.0 [facility] Comment on above: Order Comment: While on heparin Performed By: #### 4 [id number] ####[facility] [address] [place], [place] [address] Glenn Gudino M.D. [id number] MEAN CORPUSCULAR HEMOGLOBIN CONC 31.3 g/dL Normal 31.0-37.0 [facility] Comment on above: Order Comment: While on heparin Performed By: #### 4 [id number] ####[facility] [address] [place], [place] [address] Glenn Gudino M.D. [id number] Platelet mean volume (Bld) [Entitic vol] 9.0 fL Low 9.4-12.4 [facility] Comment on above: Order Comment: While on heparin Performed By: #### 4 [id number] ####[facility] [address] [place], [place] [address] Glenn Gudino M.D. [id number] Platelets (Bld) [#/Vol] 192 10*3/uL Normal 150-400 [facility] Comment on above: Order Comment: While on heparin Performed By: #### 4 [id number] ####[facility] [address] [place], [place] [address] Glenn Gudino M.D. [id number] RBC (Bld) [#/Vol] 3.39 10*6/uL Low 4.00-5.20 [facility] Comment on above: Order Comment: While on heparin Performed By: #### 4 [id number] ####[facility] [address] [place], [place] [address] Glenn Gudino M.D. [id number] WBC (Bld) [#/Vol] 5.85 10*3/uL Normal 4.50-11.00 [facility] Comment on above: Order Comment: While on heparin Performed By: #### 4 [id number] ####[facility] [address] [place] [address] Glenn Gudino M.D. [id number] COMPREHENSIVE METABOLIC PANE Magdaleno 01-22-2024 Albumin [Mass/Vol] 2.8 g/dL Low 3.2-5.2 [facility] Comment on above: Order Comment: [facility] has implemented the eGFR calculation approach that does not have a coefficient for race that conforms to the NKF-ASN Task Force Recommendations. Performed By: #### 4 6126 ####[facility] [address] [place] [address] Glenn Gudino M.D. [id number] ALP [Catalytic activity/Vol] 75 U/L Normal 40-150 [facility] Comment on above: Order Comment: [facility] has implemented the eGFR calculation approach that does not have a coefficient for race that conforms to the NKF-ASN Task Force Recommendations. Performed By: #### 4 6126 ####[facility] [address] [place] [address] Glenn Gudino M.D. [id number] ALT [Catalytic activity/Vol] 10 U/L Normal 0-35 U/L [facility] Comment on above: Order Comment: [facility] has implemented the eGFR calculation approach that does not have a coefficient for race that conforms to the NKF-ASN Task Force Recommendations. Performed By: #### 4 6126 ####[facility] [address] [place] [address] Glenn Gudino M.D. [id number] Anion gap [Moles/Vol] 16 mmol/L Normal 10-20 [facility] Comment on above: Order Comment: [facility] has implemented the eGFR calculation approach that does not have a coefficient for race that conforms to the NKF-ASN Task Force Recommendations. Performed By: #### 4 6126 ####[facility] [address] [place] [address] Glenn Gudino M.D. [id number] AST [Catalytic activity/Vol] 19 U/L Normal 0-35 U/L [facility] Comment on above: Order Comment: [facility] has implemented the eGFR calculation approach that does not have a coefficient for race that conforms to the NKF-ASN Task Force Recommendations. Performed By: #### 4 6126 ####[facility] [address] [place], [place] [address] Glenn Gudino M.D. [id number] Bilirubin [Mass/Vol] 0.2 mg/dL Normal 0.0-1.3 [facility] Comment on above: Order Comment: [facility] has implemented the eGFR calculation approach that does not have a coefficient for race that conforms to the NKF-ASN Task Force Recommendations. Performed By: #### 4 6126 ####[facility] [address] [place], [place] [address] Glenn Gudino M.D. [id number] Calcium [Mass/Vol] 8.1 mg/dL Low 8.4-10.2 [facility] Comment on above: Order Comment: [facility] has implemented the eGFR calculation approach that does not have a coefficient for race that conforms to the NKF-ASN Task Force Recommendations. Performed By: #### 4 6126 ####[facility] [address] [place], [place] [address] Glenn Gudino M.D. [id number] Chloride [Moles/Vol] 103 mmol/L Normal 98-108 [facility] Comment on above: Order Comment: [facility] has implemented the eGFR calculation approach that does not have a coefficient for race that conforms to the NKF-ASN Task Force Recommendations. Performed By: #### 4 [id number] ####[facility] [address] [place], [place] [address] Glenn Gudino M.D. [id number] Creatinine [Mass/Vol] 2.18 mg/dL High 0.60-1.10 [facility] Comment on above: Order Comment: [facility] has implemented the eGFR calculation approach that does not have a coefficient for race that conforms to the NKF-ASN Task Force Recommendations. Performed By: #### 4 [id number] ####[facility] [address] [place] [place], [place] [id number] Glenn Gudino M.D. [id number] EGFR 25 mL/min/1.73 m2 Low >=60 [facility] Comment on above: Order Comment: [facility] has implemented the eGFR calculation approach that does not have a coefficient for race that conforms to the NKF-ASN Task Force Recommendations. Result Comment: Joi mated GFR was calculated using the 2020 CKD-EPI creatinine equation. Performed By: #### 4 6126 ####[facility] [address] [place], [place] [address] Glenn Gudino M.D. [id number] Glucose [Mass/Vol] 82 mg/dL Normal 65-99 [facility] Comment on above: Order Comment: [facility] has implemented the eGFR calculation approach that does not have a coefficient for race that conforms to the NKF-ASN Task Force Recommendations. Performed By: #### 4 6126 ####[facility] [address] [place] [address] 91885 Glenn Gudino M.D. [id number] HCO3 (Bld) [Moles/Vol] 21 mmol/L Normal 21-32 [facility] Comment on above: Order Comment: [facility] has implemented the eGFR calculation approach that does not have a coefficient for race that conforms to the NKF-ASN Task Force Recommendations. Performed By: #### 4 6126 ####[facility] [address] [place] [address] 15356 Glenn Gudino M.D. [id number] Potassium [Moles/Vol] 4.6 mmol/L Normal 3.5-5.1 [facility] Comment on above: Order Comment: [facility] has implemented the eGFR calculation approach that does not have a coefficient for race that conforms to the NKF-ASN Task Force Recommendations. Performed By: #### 4 6112 ####[facility] [address] [place] [address] 52044 Glenn Gudino M.D. [id number] Protein [Mass/Vol] 6.7 g/dL Normal 6.0-8.0 [facility] Comment on above: Order Comment: [facility] has implemented the eGFR calculation approach that does not have a coefficient for race that conforms to the NKF-ASN Task Force Recommendations. Performed By: #### 4 6126 ####[facility] [address] [place] [address] 32092 Glenn Gudino M.D. [id number] Sodium [Moles/Vol] 135 mmol/L Normal 135-145 [facility] Comment on above: Order Comment: [facility] has implemented the eGFR calculation approach that does not have a coefficient for race that conforms to the NKF-ASN Task Force Recommendations. Performed By: #### 4 6178 ####[facility] [address] [place] [address] 54317 Glenn Gudino M.D. [id number] Urea nitrogen [Mass/Vol] 38 mg/dL High 8-25 [facility] Comment on above: Order Comment: [facility] has implemented the eGFR calculation approach that does not have a coefficient for race that conforms to the NKF-ASN Task Force Recommendations. Performed By: #### 4 6198 ####[facility] [address] [place] [address] 41825 Glenn Gudino M.D. [id number] Urea nitrogen/Creatinine [Mass ratio] 17.4 mg/mg Normal 10.0-20.0 [facility] Comment on above: Order Comment: [facility] has implemented the eGFR calculation approach that does not have a coefficient for race that conforms to the NKF-ASN Task Force Recommendations. Performed By: #### 4 6126 ####[facility] [address] [place] [address] 62700 Glenn Gudino M.D. [id number] CONSULTon 01-22-2024 CONSULT See consult note 12/28 11/19. AUTHENTICATED BY MARY SUBRAMANIAN ON 01/23/2024 07:09:20 Normal [facility] CONSULT Normal [facility] PT/INRon 01-22-2024 INR Coag (PPP) [Relative time] 1.0 {INR} Normal 0.8-1.1 [facility] Comment on above: Order Comment: Jennifer retana the induction phase of oral anticoagulation, the INR may not reflect the anticoagulation status of the patient. Therapeutic ranges for INR's are:Most clinical situations: INR 2.0-3.0Mechanical Prosthetic Valve: INR 2.5-3.5Critical: INR >5.0 Performed By: #### 4 6391 ####[facility] [address] [place] [address] 81422 Glenn Gudino M.D. [id number] PT Coag (PPP) [Time] 13.1 s Normal 11.8-14.3 [facility] Comment on above: Order Comment: Jennifer g the induction phase of oral anticoagulation, the INR may not reflect the anticoagulation status of the patient. Therapeutic ranges for INR's are:Most clinical situations: INR 2.0-3.0Mechanical Prosthetic Valve: INR 2.5-3.5Critical: INR >5.0 Performed By: #### 4 6391 ####[facility] [address] [place] [address] 70354 Glenn Gudino M.D. [id number] APTT HEPARIN COVERAGEon 12-28 aPTT Coag (Bld) [Time] 66 s High 23-34 [facility] Comment on above: Order Comment: Thera peutic range for APTT's is 68 - 104 seconds Result Comment: Resu lts checked. Performed By: #### 4 6848 ####[facility] [address] [place], [place] [address] Glenn Gudino M.D. [id number] aPTT Coag (Bld) [Time] 84 s High 23-34 [facility] Comment on above: Order Comment: Thera peutic range for APTT's is 68 - 104 secondsResults checked. Performed By: #### 4 6848 ####[facility] [address] [place], [place] [address] Glenn Gudino M.D. [id number] aPTT Coag (Bld) [Time] 63 s High 23-34 [facility] Comment on above: Order Comment: Thera peutic range for APTT's is 68 - 104 seconds Performed By: #### 4 6848 ####[facility] [address] [place] [address] Glenn Gudino M.D. [id number] RENAL FUNCTION PANELon 01-20 Albumin [Mass/Vol] 2.7 g/dL Low 3.2-5.2 [facility] Comment on above: Order Comment: [facility] has implemented the eGFR calculation approach that does not have a coefficient for race that conforms to the NKF-ASN Task Force Recommendations. Performed By: #### 4 6449 ####[facility] [address] [place], [place] [address] Glenn Gudino M.D. [id number] Anion gap [Moles/Vol] 15 mmol/L Normal 10-20 [facility] Comment on above: Order Comment: [facility] has implemented the eGFR calculation approach that does not have a coefficient for race that conforms to the NKF-ASN Task Force Recommendations. Performed By: #### 4 6449 ####[facility] [address] [place], [place] [address] Glenn Gudino M.D. [id number] Calcium [Mass/Vol] 8.1 mg/dL Low 8.4-10.2 [facility] Comment on above: Order Comment: [facility] has implemented the eGFR calculation approach that does not have a coefficient for race that conforms to the NKF-ASN Task Force Recommendations. Performed By: #### 4 6449 ####[facility] [address] [place] [address] 11014 Glenn Gudino M.D. [id number] Chloride [Moles/Vol] 102 mmol/L Normal 98-108 [facility] Comment on above: Order Comment: [facility] has implemented the eGFR calculation approach that does not have a coefficient for race that conforms to the NKF-ASN Task Force Recommendations. Performed By: #### 4 6449 ####[facility] [address] [place], [place] [address] Glenn Gudino M.D. [id number] Creatinine [Mass/Vol] 1.96 mg/dL High 0.60-1.10 [facility] Comment on above: Order Comment: [facility] has implemented the eGFR calculation approach that does not have a coefficient for race that conforms to the NKF-ASN Task Force Recommendations. Performed By: #### 4 6449 ####[facility] [address] [place] [address] 41958 Glenn Gudino M.D. [id number] EGFR 29 mL/min/1.73 m2 Low >=60 [facility] Comment on above: Order Comment: [facility] has implemented the eGFR calculation approach that does not have a coefficient for race that conforms to the NKF-ASN Task Force Recommendations. Result Comment: Joi mated GFR was calculated using the 2020 CKD-EPI creatinine equation. Performed By: #### 4 6449 ####[facility] [address] [place] [address] 70437 Glenn Gudino M.D. [id number] Glucose [Mass/Vol] 85 mg/dL Normal 65-99 [facility] Comment on above: Order Comment: [facility] has implemented the eGFR calculation approach that does not have a coefficient for race that conforms to the NKF-ASN Task Force Recommendations. Performed By: #### 4 6449 ####[facility] [address] [place] [address] 86993 Glenn Gudino M.D. [id number] HCO3 (Bld) [Moles/Vol] 21 mmol/L Normal 21-32 [facility] Comment on above: Order Comment: [facility] has implemented the eGFR calculation approach that does not have a coefficient for race that conforms to the NKF-ASN Task Force Recommendations. Performed By: #### 4 6449 ####[facility] [address] [place], [place] [address] Glenn Gudino M.D. [id number] Phosphate [Mass/Vol] 3.9 mg/dL Normal 2.8-4.1 [facility] Comment on above: Order Comment: [facility] has implemented the eGFR calculation approach that does not have a coefficient for race that conforms to the NKF-ASN Task Force Recommendations. Performed By: #### 4 6449 ####[facility] [address] [place] [address] 41447 Glenn Gudino M.D. [id number] Potassium [Moles/Vol] 4.2 mmol/L Normal 3.5-5.1 [facility] Comment on above: Order Comment: [facility] has implemented the eGFR calculation approach that does not have a coefficient for race that conforms to the NKF-ASN Task Force Recommendations. Performed By: #### 4 6449 ####[facility] [address] [place] [address] 74617 Glenn Gudino M.D. [id number] Sodium [Moles/Vol] 134 mmol/L Low 135-145 [facility] Comment on above: Order Comment: [facility] has implemented the eGFR calculation approach that does not have a coefficient for race that conforms to the NKF-ASN Task Force Recommendations. Performed By: #### 4 6449 ####[facility] [address] [place] [address] 67269 Glenn Gudino M.D. [id number] Urea nitrogen [Mass/Vol] 34 mg/dL High 8-25 [facility] Comment on above: Order Comment: [facility] has implemented the eGFR calculation approach that does not have a coefficient for race that conforms to the NKF-ASN Task Force Recommendations. Performed By: #### 4 6449 ####[facility] [address] [place] [address] 94489 Glenn Gudino M.D. [id number] Urea nitrogen/Creatinine [Mass ratio] 17.3 mg/mg Normal 10.0-20.0 [facility] Comment on above: Order Comment: [facility] has implemented the eGFR calculation approach that does not have a coefficient for race that conforms to the NKF-ASN Task Force Recommendations. Performed By: #### 4 6449 ####[facility] [address] [place] [address] 50608 Glenn Gudino M.D. [id number] APTT HEPARIN COVERAGEon 12-28 aPTT Coag (Bld) [Time] 53 s High 23-34 [facility] Comment on above: Order Comment: Thera peutic range for APTT's is 68 - 104 seconds Performed By: #### 4 6848 ####[facility] [address] [place] [address] 50210 Glenn Gudino M.D. [id number] CBCon 01-20-2024 AUTO NRBC 0.0 % Normal [facility] Comment on above: Performed By: #### 4 5218 ####[facility] [address] [place] [address] 70066 Glenn Gudino M.D. [id number] AUTO NRBC ABS COUNT 0.00 K/mcL Normal 0.00-0.00 [facility] Comment on above: Performed By: #### 4 [id number] ####[facility] [address] [place], [place] [address] Glenn Gudino M.D. [id number] Erythrocyte distribution width (RBC) [Ratio] 18.9 % High 11.6-14.8 [facility] Comment on above: Performed By: #### 4 [id number] ####[facility] [address] [place] [address] Glenn Gudino M.D. [id number] Hematocrit (Bld) [Volume fraction] 26.1 % Low 36.0-46.0 [facility] Comment on above: Performed By: #### 4 [id number] ####[facility] [address] [place] [address] Glenn Gudino M.D. [id number] Hemoglobin (Bld) [Mass/Vol] 8.1 g/dL Low 12.0-16.0 [facility] Comment on above: Performed By: #### 4 [id number] ####[facility] [address] [place] [address] Glenn Gudino M.D. [id number] MCH (RBC) [Entitic mass] 27.3 pg Normal 26.0-34.0 [facility] Comment on above: Performed By: #### 4 1018 ####[facility] [address] [place], [place] [address] Glenn Gudino M.D. [id number] MCV (RBC) [Entitic vol] 87.9 fL Normal 80.0-100.0 [facility] Comment on above: Performed By: #### 4 5251 ####[facility] [address] [place] [address] Glenn Gudino M.D. [id number] MEAN CORPUSCULAR HEMOGLOBIN CONC 31.0 g/dL Normal 31.0-37.0 [facility] Comment on above: Performed By: #### 4 [id number] ####[facility] [address] [place] [address] 14261 Glenn Gudino M.D. [id number] Platelet mean volume (Bld) [Entitic vol] 10.1 fL Normal 9.4-12.4 [facility] Comment on above: Performed By: #### 4 [id number] ####[facility] [address] [place] [address] 63497 Glenn Gudino M.D. [id number] Platelets (Bld) [#/Vol] 160 10*3/uL Normal 150-400 [facility] Comment on above: Performed By: #### 4 [id number] ####[facility] [address] [place] [address] 03000 Glenn Gudino M.D. [id number] RBC (Bld) [#/Vol] 2.97 10*6/uL Low 4.00-5.20 [facility] Comment on above: Performed By: #### 4 [id number] ####[facility] [address] [place] [address] 39680 Glenn Gudino M.D. [id number] WBC (Bld) [#/Vol] 4.60 10*3/uL Normal 4.50-11.00 [facility] Comment on above: Performed By: #### 4 [id number] ####[facility] [address] [place] [address] 22767 Glenn Gudino M.D. [id number] CONSULTon 01-20-2024 CONSULT Normal [facility] HEPATIC FUNCTION PANELon Albumin [Mass/Vol] 2.7 g/dL Low 3.2-5.2 [facility] Comment on above: Performed By: #### 4 5866 ####[facility] [address] [place], [place] [address] Glenn Gudino M.D. [id number] Order Comment: [facility] has implemented the eGFR calculation approach that does not have a coefficient for race that conforms to the NKF-ASN Task Force Recommendations. Performed By: #### 4 6449 ####[facility] [address] [place] [address] Glenn Gudino M.D. [id number] ALP [Catalytic activity/Vol] 79 U/L Normal 40-150 [facility] Comment on above: Performed By: #### 4 5866 ####[facility] [address] [place] [address] Glenn Gudino M.D. [id number] ALT [Catalytic activity/Vol] 13 U/L Normal 0-35 U/L [facility] Comment on above: Performed By: #### 4 5866 ####[facility] [address] [place] [address] Glenn Gudino M.D. [id number] AST [Catalytic activity/Vol] 26 U/L Normal 0-35 U/L [facility] Comment on above: Performed By: #### 4 5866 ####[facility] [address] [place], [place] [address] Glenn Gudino M.D. [id number] Bilirubin [Mass/Vol] 0.2 mg/dL Normal 0.0-1.3 [facility] Comment on above: Performed By: #### 4 5866 ####[facility] [address] [place], [place] [address] Glenn Gudino M.D. [id number] BILIRUBIN, DIRECT < Normal 0.0-0.4 [facility] Comment on above: Performed By: #### 4 5866 ####[facility] [address] [place], [place] [address] Glenn Gudino M.D. [id number] Protein [Mass/Vol] 6.1 g/dL Normal 6.0-8.0 [facility] Comment on above: Performed By: #### 4 5866 ####[facility] [address] [place] [address] 59827 Glenn Gudino M.D. [id number] PT/INRon 01-20-2024 INR Coag (PPP) [Relative time] 1.0 {INR} Normal 0.8-1.1 [facility] Comment on above: Order Comment: Malcomin g the induction phase of oral anticoagulation, the INR may not reflect the anticoagulation status of the patient. Therapeutic ranges for INR's are:Most clinical situations: INR 2.0-3.0Mechanical Prosthetic Valve: INR 2.5-3.5Critical: INR >5.0 Performed By: #### 4 6391 ####[facility] [address] [place] [address] 72400 Glenn Gudino M.D. [id number] PT Coag (PPP) [Time] 13.2 s Normal 11.8-14.3 [facility] Comment on above: Order Comment: Jennifer retana the induction phase of oral anticoagulation, the INR may not reflect the anticoagulation status of the patient. Therapeutic ranges for INR's are:Most clinical situations: INR 2.0-3.0Mechanical Prosthetic Valve: INR 2.5-3.5Critical: INR >5.0 Performed By: #### 4 6391 ####[facility] [address] [place] [address] 79018 Glenn Gudino M.D. [id number] RENAL FUNCTION PANELon 01-19 Anion gap [Moles/Vol] 15 mmol/L Normal 10-20 [facility] Comment on above: Order Comment: [facility] has implemented the eGFR calculation approach that does not have a coefficient for race that conforms to the NKF-ASN Task Force Recommendations. Performed By: #### 4 6449 ####[facility] [address] [place] [address] 97143 Glenn Gudino M.D. [id number] Calcium [Mass/Vol] 8.2 mg/dL Low 8.4-10.2 [facility] Comment on above: Order Comment: [facility] has implemented the eGFR calculation approach that does not have a coefficient for race that conforms to the NKF-ASN Task Force Recommendations. Performed By: #### 4 6449 ####[facility] [address] [place], [place] [address] Glenn Gudino M.D. [id number] Chloride [Moles/Vol] 104 mmol/L Normal 98-108 [facility] Comment on above: Order Comment: [facility] has implemented the eGFR calculation approach that does not have a coefficient for race that conforms to the NKF-ASN Task Force Recommendations. Performed By: #### 4 6449 ####[facility] [address] [place], [place] [address] Glenn Gudino M.D. [id number] Creatinine [Mass/Vol] 1.96 mg/dL High 0.60-1.10 [facility] Comment on above: Order Comment: [facility] has implemented the eGFR calculation approach that does not have a coefficient for race that conforms to the NKF-ASN Task Force Recommendations. Performed By: #### 4 6449 ####[facility] [address] [place], [place] [address] Glenn Gudino M.D. [id number] EGFR 29 mL/min/1.73 m2 Low >=60 [facility] Comment on above: Order Comment: [facility] has implemented the eGFR calculation approach that does not have a coefficient for race that conforms to the NKF-ASN Task Force Recommendations. Result Comment: Joi mated GFR was calculated using the 2020 CKD-EPI creatinine equation. Performed By: #### 4 6449 ####[facility] [address] [place], [place] [address] Glenn Gudino M.D. [id number] Glucose [Mass/Vol] 80 mg/dL Normal 65-99 [facility] Comment on above: Order Comment: [facility] has implemented the eGFR calculation approach that does not have a coefficient for race that conforms to the NKF-ASN Task Force Recommendations. Performed By: #### 4 6449 ####[facility] [address] [place] [address] Glenn Gudino M.D. [id number] HCO3 (Bld) [Moles/Vol] 20 mmol/L Low 21-32 [facility] Comment on above: Order Comment: [facility] has implemented the eGFR calculation approach that does not have a coefficient for race that conforms to the NKF-ASN Task Force Recommendations. Performed By: #### 4 6449 ####[facility] [address] [place] [address] Glenn Gudino M.D. [id number] Phosphate [Mass/Vol] 3.9 mg/dL Normal 2.8-4.1 [facility] Comment on above: Order Comment: [facility] has implemented the eGFR calculation approach that does not have a coefficient for race that conforms to the NKF-ASN Task Force Recommendations. Performed By: #### 4 6449 ####[facility] [address] [place], [place] [address] Glenn Gudino M.D. [id number] Potassium [Moles/Vol] 4.2 mmol/L Normal 3.5-5.1 [facility] Comment on above: Order Comment: [facility] has implemented the eGFR calculation approach that does not have a coefficient for race that conforms to the NKF-ASN Task Force Recommendations. Performed By: #### 4 6449 ####[facility] [address] [place], [place] [address] Glenn Gudino M.D. [id number] Sodium [Moles/Vol] 135 mmol/L Normal 135-145 [facility] Comment on above: Order Comment: [facility] has implemented the eGFR calculation approach that does not have a coefficient for race that conforms to the NKF-ASN Task Force Recommendations. Performed By: #### 4 6449 ####[facility] [address] [place] [address] 85331 Glenn Gudino M.D. [id number] Urea nitrogen [Mass/Vol] 32 mg/dL High 8-25 [facility] Comment on above: Order Comment: [facility] has implemented the eGFR calculation approach that does not have a coefficient for race that conforms to the NKF-ASN Task Force Recommendations. Performed By: #### 4 6449 ####[facility] [address] [place] [address] 13610 Glenn Gudino M.D. [id number] Urea nitrogen/Creatinine [Mass ratio] 16.3 mg/mg Normal 10.0-20.0 [facility] Comment on above: Order Comment: [facility] has implemented the eGFR calculation approach that does not have a coefficient for race that conforms to the NKF-ASN Task Force Recommendations. Performed By: #### 4 6449 ####[facility] [address] [place] [address] 14083 Glenn Gudino M.D. [id number] URINALYSISon 01-20-2024 AMORPHOUS CRYSTALS Few Abnormal None Seen , Rare [facility] Comment on above: Order Comment: Micro scopic examination is performed on all urinalysis samples and only positive findings are reported. The test for blood on the chemical analytic portion of urinalysis may also be positive due to hemoglobinuria and myoglobinuria and if red blood cells are present they are quantified by microscopic examination. Performed By: #### 4 6625 ####[facility] [address] [place] [address] 13441 Glenn Gudino M.D. [id number] BACTERIA, URINE Few Abnormal None Seen [facility] Comment on above: Order Comment: Micro scopic examination is performed on all urinalysis samples and only positive findings are reported. The test for blood on the chemical analytic portion of urinalysis may also be positive due to hemoglobinuria and myoglobinuria and if red blood cells are present they are quantified by microscopic examination. Performed By: #### [id number] ####[facility] [address] [place] [address] Glenn Gudino M.D. [id number] BILIRUBIN, URINE Negative Normal Negative [facility] Comment on above: Order Comment: Micro scopic examination is performed on all urinalysis samples and only positive findings are reported. The test for blood on the chemical analytic portion of urinalysis may also be positive due to hemoglobinuria and myoglobinuria and if red blood cells are present they are quantified by microscopic examination. Performed By: #### [id number] ####[facility] [address] [place] [address] Glenn Gudino M.D. [id number] BLOOD, URINE Negative Normal Negative [facility] Comment on above: Order Comment: Micro scopic examination is performed on all urinalysis samples and only positive findings are reported. The test for blood on the chemical analytic portion of urinalysis may also be positive due to hemoglobinuria and myoglobinuria and if red blood cells are present they are quantified by microscopic examination. Performed By: #### [id number] ####[facility] [address] [place] [address] Glenn Gudino M.D. [id number] Clarity (U) Cloudy Abnormal Clear [facility] Comment on above: Order Comment: Micro scopic examination is performed on all urinalysis samples and only positive findings are reported. The test for blood on the chemical analytic portion of urinalysis may also be positive due to hemoglobinuria and myoglobinuria and if red blood cells are present they are quantified by microscopic examination. Performed By: #### [id number] ####[facility] [address] [place] [address] Glenn Gudino M.D. [id number] Color (U) Yellow Normal Colorless, Yellow [facility] Comment on above: Order Comment: Micro scopic examination is performed on all urinalysis samples and only positive findings are reported. The test for blood on the chemical analytic portion of urinalysis may also be positive due to hemoglobinuria and myoglobinuria and if red blood cells are present they are quantified by microscopic examination. Performed By: #### [id number] ####[facility] [address] [place] [address] Glenn Gudino M.D. [id number] Glucose Ql (U) Negative Normal Negative [facility] Comment on above: Order Comment: Micro scopic examination is performed on all urinalysis samples and only positive findings are reported. The test for blood on the chemical analytic portion of urinalysis may also be positive due to hemoglobinuria and myoglobinuria and if red blood cells are present they are quantified by microscopic examination. Performed By: #### [id number] ####[facility] [address] [place] [address] Glenn Gudino M.D. [id number] Ketones Ql (U) Negative Normal Negative [facility] Comment on above: Order Comment: Micro scopic examination is performed on all urinalysis samples and only positive findings are reported. The test for blood on the chemical analytic portion of urinalysis may also be positive due to hemoglobinuria and myoglobinuria and if red blood cells are present they are quantified by microscopic examination. Performed By: #### [id number] ####[facility] [address] [place] [address] Glenn Gudino M.D. [id number] Leukocyte esterase Test strip Ql (U) Small Abnormal Negative [facility] Comment on above: Order Comment: Micro scopic examination is performed on all urinalysis samples and only positive findings are reported. The test for blood on the chemical analytic portion of urinalysis may also be positive due to hemoglobinuria and myoglobinuria and if red blood cells are present they are quantified by microscopic examination. Performed By: #### [id number] ####[facility] [address] [place] [address] Glenn Gudino M.D. [id number] NITRITE, URINE Negative Normal Negative [facility] Comment on above: Order Comment: Micro scopic examination is performed on all urinalysis samples and only positive findings are reported. The test for blood on the chemical analytic portion of urinalysis may also be positive due to hemoglobinuria and myoglobinuria and if red blood cells are present they are quantified by microscopic examination. Performed By: #### [id number] ####[facility] [address] [place] [address] Glenn Gudino M.D. [id number] pH (U) 7.5 [pH] High 5.0-7.0 [facility] Comment on above: Order Comment: Micro scopic examination is performed on all urinalysis samples and only positive findings are reported. The test for blood on the chemical analytic portion of urinalysis may also be positive due to hemoglobinuria and myoglobinuria and if red blood cells are present they are quantified by microscopic examination. Performed By: #### [id number] ####[facility] [address] [place] [address] Glenn Gudino M.D. [id number] Protein (U) [Mass/Vol] 100 mg/dL Abnormal Negative [facility] Comment on above: Order Comment: Micro scopic examination is performed on all urinalysis samples and only positive findings are reported. The test for blood on the chemical analytic portion of urinalysis may also be positive due to hemoglobinuria and myoglobinuria and if red blood cells are present they are quantified by microscopic examination. Performed By: #### [id number] ####[facility] [address] [place], [place] [id number] Glenn Gudino M.D. [id number] RBC LM.HPF (Urine sed) [#/Area] 1 /[HPF] Normal 0-3 [facility] Comment on above: Order Comment: Micro scopic examination is performed on all urinalysis samples and only positive findings are reported. The test for blood on the chemical analytic portion of urinalysis may also be positive due to hemoglobinuria and myoglobinuria and if red blood cells are present they are quantified by microscopic examination. Performed By: #### 4 [id number] ####[facility] [address] [place] [address] Glenn Gudino M.D. [id number] Specific gravity (U) [Rel density] 1.018 Normal 1.005-1.02 5 [facility] Comment on above: Order Comment: Micro scopic examination is performed on all urinalysis samples and only positive findings are reported. The test for blood on the chemical analytic portion of urinalysis may also be positive due to hemoglobinuria and myoglobinuria and if red blood cells are present they are quantified by microscopic examination. Performed By: #### 4 [id number] ####[facility] [address] [place], [place] [id number] Glenn Gudino M.D. [id number] SQUAMOUS EPITHELIAL 1 /hpf Normal 0-4 [facility] Comment on above: Order Comment: Micro scopic examination is performed on all urinalysis samples and only positive findings are reported. The test for blood on the chemical analytic portion of urinalysis may also be positive due to hemoglobinuria and myoglobinuria and if red blood cells are present they are quantified by microscopic examination. Performed By: #### 4 [id number] ####[facility] [address] [place] [address] Glenn Gudino M.D. [id number] UROBILINOGEN, URINE <2.0 Normal <2.0 [facility] Comment on above: Order Comment: Micro scopic examination is performed on all urinalysis samples and only positive findings are reported. The test for blood on the chemical analytic portion of urinalysis may also be positive due to hemoglobinuria and myoglobinuria and if red blood cells are present they are quantified by microscopic examination. Performed By: #### 4 [id number] ####[facility] [address] [place], [place] [id number] Glenn Gudino M.D. [id number] WBC LM.HPF (Urine sed) [#/Area] 18 /[HPF] High 0-5 [facility] Comment on above: Order Comment: Micro scopic examination is performed on all urinalysis samples and only positive findings are reported. The test for blood on the chemical analytic portion of urinalysis may also be positive due to hemoglobinuria and myoglobinuria and if red blood cells are present they are quantified by microscopic examination. Performed By: #### 4 [id number] ####[facility] [address] [place] [address] Glenn Gudino M.D. [id number] US RENAL AND BLADDERon 01-19 US RENAL AND BLADDER Normal [facility] Comment on above: Order Comment: Injur y/Trauma or Illness?:Illness/OtherHow long have you had these symptoms (acute/chronic)?:UnknownReason for exam?:akiHistory of cancer?:uSurgeries, chemotherapy, or radiation?:uType of Exam?:UnknownAdditional signs and symptoms?:- H AND Ney 01-19-2024 H AND P Normal [facility] CT ANGIOGRAM CHEST ABDOMEN P ELVISon 01-09-2024 CT ANGIOGRAM CHEST ABDOMEN PELVIS EXAMINATION: CT ANGIOGRAM CHEST ABDOMEN PELVIS 01/09/2024. 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 ORDERING SYSTEM PROVIDED DIAGNOSIS CODES: I71.32 Juxtarenal ruptured abdominal aortic aneurysm (AAA) ([facility]) T81.89XA Postoperative leak COMPARISON: CT angiogram of the chest, abdomen and pelvis 10/09/2023. TECHNIQUE: Dose reduction techniques were achieved by using automated exposure control and/or adjustment of mA and/or kV according to patient size and/or use of iterative reconstruction technique. Coronal and sagittal MIP (maximum intensity projection) images were performed. CONTRAST: IOPAMIDOL 370 MG IODINE/ML (76 %) INTRAVENOUS SOLUTION - 75 mL, FINDINGS: CT CHEST: Thyroid is atrophic. Subcentimeter calcified nodule within the left lobe noted. Similar atherosclerotic change of the thoracic aorta without dissection. Mid ascending thoracic aortic segment has a transverse diameter of 3.5 cm. A noncalcified mediastinal and hilar nodes persist. Heart size is similarly enlarged with evidence of left ventricular dilatation and extensive coronary artery calcifications in a triple-vessel distribution. Mild asymmetric elevation/eventration left hemidiaphragm. Similar background emphysematous changes are identified. Minor bibasilar/supine atelectasis noted without edema, failure, pneumonia, pneumothorax or suspicious-appearing mass. Mild diffuse background body wall edema is identified. No convincing evidence of a large acute central pulmonary embolus. CT ABDOMEN: Small volume of ascites noted. The liver, gallbladder, pancreas, adrenals and left kidney demonstrate no acute interval change. Small wedge-shaped subcapsular hypodense focus involving the upper pole of the spleen seen posteriorly, image 95 measures 13 x 14 mm. Smaller foci are noted as well, noted for example anteriorly and laterally on image 93. There is persistent hyperperfusion associated with the right kidney again noted. Bowel pattern does not appear to be obstructive. CT PELVIS: Prominent intrapelvic varices are present. Uterus is anteverted. Superiorly located submucosal enhancing lesion involving the upper uterine body, 15 mm in diameter presumably related to a fibroid. Both ovaries are age appropriate. Prior appendectomy noted. CT ANGIOGRAM: Interval placement of abdominal aortic endograft. Proximal attachment site is noted below the origin of the superior mesenteric artery. The left renal artery stent placement is noted. Ruptured large aneurysm sac with multilobulated appearance is again identified. There is puddling of high attenuation contrast material caudal to the left renal artery to the left of the aortic stent. This measures at least 3.8 x 2.5 x 4.2 cm. The hemorrhage emanating from the rupture to the right of midline results in mass effect and displacement of the right kidney. A component of this hematoma measures at least 6.1 x 10.8 cm. There is anterolateral displacement of the infrahepatic segment of the IVC which remains patent. There is significant kinking of the lumen of the left iliac modular segments within the distal infrarenal aorta, axial image 116. Overall there is suboptimal contrast opacification of the stent which grossly appears to be patent. Distal attachment sites appear to be well seated. The right-sided hematoma extends into the retroperitoneum into the right lower quadrant. A component of the hematoma posterior to the proximal right colon on image 182 measures 3.3 cm in diameter. Overall this has decreased in volume. A portion of the infrarenal aortic aneurysm on image 137 has transverse width of 10.2 cm and has an AP measurement of 6.1 cm. The superior mesenteric, celiac and left renal arteries are patent. Inferior mesenteric artery is quite small in caliber and difficult to visualize. Osseous structures are stable. IMPRESSION: 1. Interval placement of abdominal aortic endograft for treatment of large ruptured abdominal aortic aneurysm. There is an endoleak with puddling of contrast within the left side of the proximal infrarenal aorta just below the left renal artery stent as described. The stent overall is patent. 2. There is significant compression and kinking of the modular segment extending into the left common iliac artery within the distal infrarenal aorta. Distal attachment sites are otherwise well seated. 3. 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 Large persistent periaortic hematoma resulting in mass effect upon the right kidney extending into the right lower quadrant. This overall has decr (more content not included)... 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 US ABDOMINAL AORTIC ANEURYSM DUPLEX (AAA)on 01-05-2024 US ABDOMINAL AORTIC ANEURYSM DUPLEX (AAA) Patient Info Name: SCOTT OBREGON Age: 63 years : 1960 Gender: Female Exam Date: 01/05/2024 9:06 AM Patient Status: Outpatient Tearoom Host: Mary Newell, DEVIN, RVS Referring Physician: SARATH REY ; Indications - AAA stent graft I71.3 - Abdominal aortic aneurysm, ruptured Procedure Description 47474 Duplex scan of aorta, inferior vena cava, iliac vasculature, or bypass grafts using B-mode, color and spectral Doppler; complete study. Conclusions * Endograft imaged with evidence of an endoleak. Residual aneurysm sac measure 6.8 cm x 8.6 cm . Measurement may be underestimated due to excessive bowel gas. Risk Factors Patient has a history of AAA, hypertension, hyperlipidemia, tobacco use-previous and DVT. . Notification of Results: Results called to Dr. Rey at 01/05/2024 9:06:00 AM. Report Signatures Finalized by Sarath Rey MD, RPVI on 01/05/2024 11:41 AM Measurements Name Value AP Proximal Ao AP 2.3 cm Mid Ao AP 6.8 cm Distal Ao AP 2.3 cm Measurements Name Value PSV Proximal Ao PSV 42 cm/s Mid Ao PSV 56 cm/s Distal Ao PSV 55 cm/s Measurements Name Value AP Right Prox EMMANUEL AP Diam 1.1 cm Measurements Name Value AP Left Prox EMMANUEL AP Diam 1.3 cm Name Value EDV Proximal Ao EDV 10 cm/s Mid Ao EDV 11 cm/s Distal Ao EDV 0 cm/s Name Value Trans Proximal Ao Trans 2.3 cm Mid Ao Trans 8.6 cm Distal Ao Trans 2.8 cm Right Iliac Measurements Name Value PSV Right Prox EMMANUEL PSV 49 cm/s Name Value EDV Right Prox EMMANUEL EDV 0 cm/s Name Value Trans Right Prox EMMANUEL Trans Diam 1.2 cm Left Iliac Measurements Name Value PSV Left Prox EMMANUEL PSV 157 cm/s Name Value EDV Left Prox EMMANUEL EDV 10 cm/s Name Value Trans Left Prox EMMANUEL Trans Diam 1.3 cm Normal [facility] ABDOMINAL AORTIC ANEURYSM DUPLEX (AAA) Patient Info Name: SCOTT OBREGON Age: 63 years : 1960 Gender: Female Exam Date: 01/05/2024 9:06 AM Patient Status: Outpatient Tearoom Host: Mary Newell, RVT, RVS Referring Physician: SARATH REY ; Indications - AAA stent graft I71.3 - Abdominal aortic aneurysm, ruptured Procedure Description 79147 Duplex scan of aorta, inferior vena cava, iliac vasculature, or bypass grafts using B-mode, color and spectral Doppler; complete study. Conclusions * Endograft imaged with evidence of an endoleak. Residual aneurysm sac measure 6.8 cm x 8.6 cm . Measurement may be underestimated due to excessive bowel gas. Risk Factors Patient has a history of AAA, hypertension, hyperlipidemia, tobacco use-previous and DVT. . Notification of Results: Results called to Dr. Rey at 01/05/2024 9:06:00 AM. Report Signatures Finalized by Sarath Rey MD, MICHAEL on 01/05/2024 11:41 AM Measurements Name Value AP Proximal Ao AP 2.3 cm Mid Ao AP 6.8 cm Distal Ao AP 2.3 cm Measurements Name Value PSV Proximal Ao PSV 42 cm/s Mid Ao PSV 56 cm/s Distal Ao PSV 55 cm/s Measurements Name Value AP Right Prox EMMANUEL AP Diam 1.1 cm Measurements Name Value AP Left Prox EMMANUEL AP Diam 1.3 cm Name Value EDV Proximal Ao EDV 10 cm/s Mid Ao EDV 11 cm/s Distal Ao EDV 0 cm/s Name Value Trans Proximal Ao Trans 2.3 cm Mid Ao Trans 8.6 cm Distal Ao Trans 2.8 cm Right Iliac Measurements Name Value PSV Right Prox EMMANUEL PSV 49 cm/s Name Value EDV Right Prox EMMANUEL EDV 0 cm/s Name Value Trans Right Prox EMMANUEL Trans Diam 1.2 cm Left Iliac Measurements Name Value PSV Left Prox EMMANUEL PSV 157 cm/s Name Value EDV Left Prox EMMANUEL EDV 10 cm/s Name Value Trans Left Prox EMMAUNEL Trans Diam 1.3 cm Dictated by: SARATH REY on MonJan 05, 2024 11:42:09 AM EDT Transcribed by: SARATH REY on MonJan 05, 2024 11:42:09 AM EDT Finalized by: SARATH REY on MonJan 05, 2024 11:42:09 AM EDT [facility] RENAL ARTERY DUPLEX LIMIT EDon 01-05-2024 US RENAL ARTERY DUPLEX LIMITED Patient Info Name: SCOTT OBREGON Age: 63 years : 1960 Gender: Female Exam Date: 01/05/2024 9:37 AM Patient Status: Outpatient Tearoom Host: Mary Newell, DOLOREST, RVS Referring Physician: SARATH REY ; Indications - left renal artery chimney N28.9 - Renal insufficiency Procedure Description 21658 Duplex scan of arterial inflow and venous outflow of abdominal, pelvic, and/or retroperitoneal organs using B-mode, color and spectral Doppler; limited study. Conclusions * Suboptimal exam due to active peristalsis, excessive bowel gas. * Right. * Unable to visualize right renal artery due to perinephric hematoma ,however no flow was noted within kidney suggestive of renal artery occlusion. * CT scan 10/09/2023 : The right kidney is nonenhancing and displaced to the right with surrounding heterogeneous large perinephric hematoma. The right renal artery was not visualized and is likely occluded from compression. * Mixed echogenic area in the right upper quadrant measuring, 12.1 cm x 5.59 cm ,suggestive of the hematoma seen on previous CT scan,. * Left. * Left renal artery stent is patent with 0-59% stenosis. * Left renal vein is patent. Aorta Name Value PSV Juxta-Renal Ao PSV 47 cm/s Aorta Name Value EDV Juxta-Renal Ao EDV 6 cm/s Measurements Name Value Size Right Kidney Length 10.1 cm Name Value LRA PSV Left Origin Renal PSV 98 cm/s Left Prox Renal PSV 81 cm/s Left Mid Renal PSV 58 cm/s Left Distal Renal PSV 63 cm/s Name Value LRA EDV Left Origin Renal EDV 31 cm/s Left Prox Renal EDV 16 cm/s Left Mid Renal EDV 15 cm/s Left Distal Renal EDV 16 cm/s Name Value Left RAR Left Origin Renal RAR 2.1 Left Prox Renal RAR 1.7 Left Mid Renal RAR 1.2 Left Distal Renal RAR 1.3 Name Value Size Left Kidney Length 11.6 cm Prior Study Date: 11/16/2023 Risk Factors Patient has a history of AAA, hypertension, hyperlipidemia, tobacco use-previous and DVT. . Report Signatures Finalized by Sarath Rey MD, RPVI on 01/05/2024 11:58 AM [facility] RENAL ARTERY DUPLEX LIMITED Patient Info Name: SCOTT OBREGON Age: 63 years : 1960 Gender: Female Exam Date: 01/05/2024 9:37 AM Patient Status: Outpatient Tearoom Host: Mary Newell, DEVIN, RVS Referring Physician: SARATH REY ; Indications - left renal artery chimney N28.9 - Renal insufficiency Procedure Description 27386 Duplex scan of arterial inflow and venous outflow of abdominal, pelvic, and/or retroperitoneal organs using B-mode, color and spectral Doppler; limited study. Conclusions * Suboptimal exam due to active peristalsis, excessive bowel gas. * Right. * Unable to visualize right renal artery due to perinephric hematoma ,however no flow was noted within kidney suggestive of renal artery occlusion. * CT scan 10/09/2023 : The right kidney is nonenhancing and displaced to the right with surrounding heterogeneous large perinephric hematoma. The right renal artery was not visualized and is likely occluded from compression. * Mixed echogenic area in the right upper quadrant measuring, 12.1 cm x 5.59 cm ,suggestive of the hematoma seen on previous CT scan,. * Left. * Left renal artery stent is patent with 0-59% stenosis. * Left renal vein is patent. Aorta Name Value PSV Juxta-Renal Ao PSV 47 cm/s Aorta Name Value EDV Juxta-Renal Ao EDV 6 cm/s Measurements Name Value Size Right Kidney Length 10.1 cm Name Value LRA PSV Left Origin Renal PSV 98 cm/s Left Prox Renal PSV 81 cm/s Left Mid Renal PSV 58 cm/s Left Distal Renal PSV 63 cm/s Name Value LRA EDV Left Origin Renal EDV 31 cm/s Left Prox Renal EDV 16 cm/s Left Mid Renal EDV 15 cm/s Left Distal Renal EDV 16 cm/s Name Value Left RAR Left Origin Renal RAR 2.1 Left Prox Renal RAR 1.7 Left Mid Renal RAR 1.2 Left Distal Renal RAR 1.3 Name Value Size Left Kidney Length 11.6 cm Prior Study Date: 11/16/2023 Risk Factors Patient has a history of AAA, hypertension, hyperlipidemia, tobacco use-previous and DVT. . Report Signatures Finalized by Sarath Rey MD, RPVI on 01/05/2024 11:58 AM Dictated by: SARATH REY on MonJan 05, 2024 11:59:06 AM EDT Transcribed by: SARATH REY on MonJan 05, 2024 11:59:06 AM EDT Finalized by: SARATH REY on MonJan 05, 2024 11:59:06 AM EDT Normal [facility] External Lab PT/INRon 2023 INR Coag (PPP) [Relative time] 1.7 {INR} [facility] No Panel Informationon 01-02 [facility] POCT PT/INROrdered By: Makenzie Garza on 01-03-2024 INR Coag (Bld) [Relative time] 1.7 {INR} Abnormal 0.8 - 1.1 [facility] Comment on above: 5.0 mg, all other do ses stay the same Interpretation and review of laboratory results Abnormal [facility] External Lab PT/INRon 2023 INR Coag (PPP) [Relative time] 2.1 {INR} [facility] No Panel Informationon 12-26 [facility] [place] POCT PT/INROrdered By: Antonietta Monk on 12-27-2023 INR Coag (Bld) [Relative time] 2.1 {INR} Abnormal 0.8 - 1.1 [facility] Interpretation and review of laboratory results Abnormal [facility] BASIC METABOLIC PANELon 11-27 Anion gap [Moles/Vol] 14 mmol/L Normal 10-20 [facility] Comment on above: Order Comment: Jennifer retana the induction phase of oral anticoagulation, the INR may not reflect the anticoagulation status of the patient. Therapeutic ranges for INR's are: Most clinical situations: INR 2.0-3.0 Mechanical Prosthetic Valve: INR 2.5-3.5 Critical: INR >5.0 Performed By: #### [id number] #### LAB [address] [place] [address] Jaron Méndez M.D. [id number] Calcium [Mass/Vol] 9.0 mg/dL Normal 8.4-10.2 [facility] Comment on above: Order Comment: Jennifer retana the induction phase of oral anticoagulation, the INR may not reflect the anticoagulation status of the patient. Therapeutic ranges for INR's are: Most clinical situations: INR 2.0-3.0 Mechanical Prosthetic Valve: INR 2.5-3.5 Critical: INR >5.0 Performed By: #### [id number] #### LAB [address] [place] [address] Jaron Méndez M.D. [id number] Chloride [Moles/Vol] 98 mmol/L Normal 98-108 [facility] [facility] Comment on above: Order Comment: Jennifer retana the induction phase of oral anticoagulation, the INR may not reflect the anticoagulation status of the patient. Therapeutic ranges for INR's are: Most clinical situations: INR 2.0-3.0 Mechanical Prosthetic Valve: INR 2.5-3.5 Critical: INR >5.0 Performed By: #### 4 6391 #### [facility] [address] [place], [place] [id number] Jaron Méndez M.D. [id number] Creatinine [Mass/Vol] 1.40 mg/dL High 0.60-1.10 [facility] Comment on above: Order Comment: Jennifer g the induction phase of oral anticoagulation, the INR may not reflect the anticoagulation status of the patient. Therapeutic ranges for INR's are: Most clinical situations: INR 2.0-3.0 Mechanical Prosthetic Valve: INR 2.5-3.5 Critical: INR >5.0 Performed By: #### 4 6391 #### [facility] [address] [place] [address] Jaron Méndez M.D. [id number] EGFR 43 mL/min/1.73 m2 Low >=60 [facility] Comment on above: Order Comment: Jennifer g the induction phase of oral anticoagulation, the INR may not reflect the anticoagulation status of the patient. Therapeutic ranges for INR's are: Most clinical situations: INR 2.0-3.0 Mechanical Prosthetic Valve: INR 2.5-3.5 Critical: INR >5.0 Result Comment: Joi mated GFR was calculated using the 2020 CKD-EPI creatinine equation. Performed By: #### 4 6391 #### [facility] [address] [place] [address] Jaron Méndez M.D. [id number] Glucose [Mass/Vol] 89 mg/dL Normal 65-99 [facility] Comment on above: Order Comment: Malcomin g the induction phase of oral anticoagulation, the INR may not reflect the anticoagulation status of the patient. Therapeutic ranges for INR's are: Most clinical situations: INR 2.0-3.0 Mechanical Prosthetic Valve: INR 2.5-3.5 Critical: INR >5.0 Performed By: #### 4 6391 #### [facility] [address] [place] [address] Jaron Méndez M.D. [id number] HCO3 (Bld) [Moles/Vol] 25 mmol/L Normal 21-32 [facility] Comment on above: Order Comment: Durin g the induction phase of oral anticoagulation, the INR may not reflect the anticoagulation status of the patient. Therapeutic ranges for INR's are: Most clinical situations: INR 2.0-3.0 Mechanical Prosthetic Valve: INR 2.5-3.5 Critical: INR >5.0 Performed By: #### 4 6391 #### LAB [address] [place], [place] [id number] Jaron Méndez M.D. [id number] Potassium [Moles/Vol] 4.5 mmol/L Normal 3.5-5.1 [facility] Comment on above: Order Comment: Jennifer retana the induction phase of oral anticoagulation, the INR may not reflect the anticoagulation status of the patient. Therapeutic ranges for INR's are: Most clinical situations: INR 2.0-3.0 Mechanical Prosthetic Valve: INR 2.5-3.5 Critical: INR >5.0 Performed By: #### 4 6391 #### [address] [address] Jaron Méndez M.D. [id number] Sodium [Moles/Vol] 132 mmol/L Low 135-145 [facility] Comment on above: Order Comment: Jennifer retana the induction phase of oral anticoagulation, the INR may not reflect the anticoagulation status of the patient. Therapeutic ranges for INR's are: Most clinical situations: INR 2.0-3.0 Mechanical Prosthetic Valve: INR 2.5-3.5 Critical: INR >5.0 Performed By: #### 4 6391 #### [address] [address] Jaron Méndez M.D. [id number] Urea nitrogen [Mass/Vol] 25 mg/dL Normal 8-25 [facility] Comment on above: Order Comment: Jennifer retana the induction phase of oral anticoagulation, the INR may not reflect the anticoagulation status of the patient. Therapeutic ranges for INR's are: Most clinical situations: INR 2.0-3.0 Mechanical Prosthetic Valve: INR 2.5-3.5 Critical: INR >5.0 Performed By: #### 4 6391 #### [address] [address] Jaron Méndez M.D. [id number] Urea nitrogen/Creatinine [Mass ratio] 17.9 mg/mg Normal 10.0-20.0 [facility] Comment on above: Order Comment: Durin g the induction phase of oral anticoagulation, the INR may not reflect the anticoagulation status of the patient. Therapeutic ranges for INR's are: Most clinical situations: INR 2.0-3.0 Mechanical Prosthetic Valve: INR 2.5-3.5 Critical: INR >5.0 Performed By: #### 4 6391 #### LAB [address] [place] [address] Jaron Méndez M.D. [id number] PT/INRon 12-21-2023 INR Coag (PPP) [Relative time] 2.9 {INR} High 0.8-1.1 [facility] Comment on above: Order Comment: Jennifer retana the induction phase of oral anticoagulation, the INR may not reflect the anticoagulation status of the patient. Therapeutic ranges for INR's are: Most clinical situations: INR 2.0-3.0 Mechanical Prosthetic Valve: INR 2.5-3.5 Critical: INR >5.0 Performed By: #### 4 6391 #### LAB [address] [place] [address] Jaron Méndez M.D. [id number] PT Coag (PPP) [Time] 31.1 s High 11.8-14.3 [facility] Comment on above: Order Comment: Jennifer retana the induction phase of oral anticoagulation, the INR may not reflect the anticoagulation status of the patient. Therapeutic ranges for INR's are: Most clinical situations: INR 2.0-3.0 Mechanical Prosthetic Valve: INR 2.5-3.5 Critical: INR >5.0 Performed By: #### 4 6391 #### LAB [address] [place] [address] Jaron Méndez M.D. [id number] [facility] POCT PT/INROrdered By: Adilene Albright on 12-20-2023 INR Coag (Bld) [Relative time] 4.4 {INR} Abnormal 0.8 - 1.1 [facility] Comment on above: Patient will get a b lood draw at [facility] tomorrow morning. Coumadin clinic aware. She is holing her dose for tonight. Interpretation and review of laboratory results Abnormal [facility] External Lab PT/INRon 2023 INR Coag (PPP) [Relative time] 4.1 {INR} [facility] No Panel Informationon 12-12 [facility] POCT PT/INROrdered By: Makenzie Garza on 12-13-2023 INR Coag (Bld) [Relative time] 4.1 {INR} Abnormal 0.8 - 1.1 [facility] Interpretation and review of laboratory results Abnormal [facility] POC CREATININE - Yoanna 11-26 Creatinine [Mass/Vol] 1.7 mg/dL High 0.6-1.2 [facility] External Lab PT/INRon 2023 INR Coag (PPP) [Relative time] 4.4 {INR} [facility] No Panel Informationon 12-05 [facility] POCT PT/INROrdered By: Makenzie Garza on 12-06-2023 INR Coag (Bld) [Relative time] 4.4 {INR} Abnormal 0.8 - 1.1 [facility] Comment on above: Pt declined venipunc ture for lab draw. Coumadin clinic aware. See Narrative note Interpretation and review of laboratory results Abnormal [facility] External Lab PT/INRon 2023 INR Coag (PPP) [Relative time] 3.5 {INR} [facility] No Panel Informationon 11-28 [facility] POCT PT/INROrdered By: Adilene Albright on 11-29-2023 INR Coag (Bld) [Relative time] 3.5 {INR} Abnormal 0.8 - 1.1 [facility] Interpretation and review of laboratory results Abnormal [facility] US ANKLE/BRACHIAL INDICES EX TREMITY LIMITEDon 11-28-2023 US ANKLE/BRACHIAL INDICES EXTREMITY LIMITED Patient Info Name: SCOTT OBREGON Age: 63 years : 1960 Gender: Female Exam Date: 11/28/2023 3:21 PM Patient Status: Outpatient Tearoom Host: AMBER LUCIO RVT Referring Physician: ABIGAIL ESTRELLA ; Indications - Left foot ischemia with ischemic ulcers I73.9 - Peripheral vascular disease, unspecified Procedure Description 00385 Limited bilateral noninvasive physiologic studies of upper or lower extremity arteries with bidirectional Doppler/PVR waveform analysis at 1-2 levels. Conclusions * Right and left ankle brachial indices are normal. Right PAL is 1.14. Left PAL is 1.13. * No evidence of small vessel disease at the transmetatarsal level in both feet. * Right toe brachial index is abnormal. * Left toe PPG waveform is absent. Toe brachial index is 0.0. * The previous ankle brachial index was .94 on the right and .96 on the left. Recommendations * This study indicates normal resting PAL's bilaterally. Doppler and PVR waveforms show satisfactory amplitude and triphasic patterns at both ankles. Clinical correlation advised. . Doppler Rt Posterior Tibial: Triphasic Rt Dorsalis Pedis: Triphasic Lt Posterior Tibial: Triphasic Lt Dorsalis Pedis: Triphasic PVR Rt Ankle: Normal Lt Ankle: Normal Rt Digit: Abnormal Lt Digit: Absent Rt Brachial: 151 Rt Posterior Tibial: 172 Rt Dorsalis Pedis: 134 Rt Digit: 85 1.14 0.89 0.56 Lt Brachial: 150 Lt Posterior Tibial: 170 Lt Dorsalis Pedis: 149 Lt Digit: 0 1.13 0.99 0.00 Prior Study Date: 2023 Risk Factors Patient has a history of hypertension, hyperlipidemia, tobacco use-previous and DVT. . Report Signatures Finalized by MICHAEL Carcamo DO on 11/28/2023 03:38 PM Normal [facility] US ANKLE/BRACHIAL INDICES EXTREMITY LIMITED Patient Info Name: SCOTT OBREGON Age: 63 years : 1960 Gender: Female Exam Date: 11/28/2023 3:21 PM Patient Status: Outpatient Tearoom Host: AMBER LUCIO Mago Referring Physician: ABIGAIL ESTRELLA ; Indications - Left foot ischemia with ischemic ulcers I73.9 - Peripheral vascular disease, unspecified Procedure Description 54188 Limited bilateral noninvasive physiologic studies of upper or lower extremity arteries with bidirectional Doppler/PVR waveform analysis at 1-2 levels. Conclusions * Right and left ankle brachial indices are normal. Right PAL is 1.14. Left PAL is 1.13. * No evidence of small vessel disease at the transmetatarsal level in both feet. * Right toe brachial index is abnormal. * Left toe PPG waveform is absent. Toe brachial index is 0.0. * The previous ankle brachial index was .94 on the right and .96 on the left. Recommendations * This study indicates normal resting PAL's bilaterally. Doppler and PVR waveforms show satisfactory amplitude and triphasic patterns at both ankles. Clinical correlation advised. . Doppler Rt Posterior Tibial: Triphasic Rt Dorsalis Pedis: Triphasic Lt Posterior Tibial: Triphasic Lt Dorsalis Pedis: Triphasic PVR Rt Ankle: Normal Lt Ankle: Normal Rt Digit: Abnormal Lt Digit: Absent Rt Brachial: 151 Rt Posterior Tibial: 172 Rt Dorsalis Pedis: 134 Rt Digit: 85 1.14 0.89 0.56 Lt Brachial: 150 Lt Posterior Tibial: 170 Lt Dorsalis Pedis: 149 Lt Digit: 0 1.13 0.99 0.00 Prior Study Date: 2023 Risk Factors Patient has a history of hypertension, hyperlipidemia, tobacco use-previous and DVT. . Report Signatures Finalized by MICHAEL Carcamo DO on 11/28/2023 03:38 PM Dictated by: JULIO CESAR BLAKE III on MonNov 28, 2023 3:44:31 PM EDT Transcribed by: JULIO CESAR BLAKE III on MonNov 28, 2023 3:44:31 PM EDT Finalized by: JULIO CESAR BLAKE III on MonNov 28, 2023 3:44:31 PM EDT Normal [facility] CBC WITH AUTO DIFFERENTIALon 11-23-2023 AUTO NRBC 0.0 % Normal [facility] Comment on above: Performed By: #### L [id number] #### LAB [address] [address] Jaron Méndez M.D. [id number] AUTO NRBC ABS COUNT 0.00 K/mcL Normal 0.00-0.00 [facility] Comment on above: Performed By: #### L [id number] #### [facility] [address] [place], [place] [address] Jaron Méndez M.D. [id number] BASOPHILS ABSOLUTE COUNT 0.04 K/mcL Normal 0.00-0.30 [facility] Comment on above: Performed By: #### L [id number] #### [facility] [address] [place], [place] [address] Jaron Méndez M.D. [id number] Basophils/100 WBC (Bld) 0.6 % Normal [facility] Comment on above: Performed By: #### L [id number] #### LAB [address] [place] [address] Jaron Méndez M.D. [id number] Eosinophils (Bld) [#/Vol] 0.07 10*3/uL Normal 0.00-0.50 [facility] Comment on above: Performed By: #### L [id number] #### LAB [address] [place] [address] Jaron Méndez M.D. [id number] Eosinophils/100 WBC (Bld) 1.1 % Normal [facility] Comment on above: Performed By: #### L [id number] #### LAB [address] [place] [address] Jaron Méndez M.D. [id number] Erythrocyte distribution width (RBC) [Ratio] 17.9 % High 11.6-14.8 [facility] Comment on above: Performed By: #### L [id number] #### LAB [address] [place] [address] Jaron Méndez M.D. [id number] Hematocrit (Bld) [Volume fraction] 29.2 % Low 36.0-46.0 [facility] Comment on above: Performed By: #### L [id number] #### LAB [address] [place] [address] Jaron Méndez M.D. [id number] Hemoglobin (Bld) [Mass/Vol] 9.0 g/dL Low 12.0-16.0 [facility] Comment on above: Performed By: #### L [id number] #### LAB [address] [place] [address] Jaron Méndez M.D. [id number] IG ABSOLUTE 0.06 K/mcL Normal 0.00-0.30 [facility] Comment on above: Performed By: #### L [id number] #### LAB [address] [place] [address] Jaron Méndez M.D. [id number] IG PERCENT 0.90 % Normal [facility] Comment on above: Result Comment: The IG parameter is the percentage of metamyelocytes, myelocytes and promyelocytes. An immature granulocyte count (IG) of 1% or more suggests the possibility of infection, an IG count of 3% is very likely related to an infection. Performed By: #### L [id number] #### LAB [address] [place] [address] Jaron Méndez M.D. [id number] Lymphocytes (Bld) [#/Vol] 1.09 10*3/uL Normal 0.90-4.00 [facility] Comment on above: Performed By: #### L [id number] #### LAB [address] [place] [address] Jaron Méndez M.D. [id number] Lymphocytes/100 WBC (Bld) 16.7 % Normal [facility] Comment on above: Performed By: #### L [id number] #### LAB [address] [place] [address] Jaron Méndez M.D. [id number] MCH (RBC) [Entitic mass] 27.4 pg Normal 26.0-34.0 [facility] Comment on above: Performed By: #### L [id number] #### LAB [address] [place] [address] Jaron Méndez M.D. [id number] MCV (RBC) [Entitic vol] 88.8 fL Normal 80.0-100.0 [facility] Comment on above: Performed By: #### L [id number] #### LAB [address] [place] [address] Jaron Méndez M.D. [id number] MEAN CORPUSCULAR HEMOGLOBIN CONC 30.8 g/dL Low 31.0-37.0 [facility] Comment on above: Performed By: #### L [id number] #### LAB [address] [place] [address] Jaron Méndez M.D. [id number] Monocytes (Bld) [#/Vol] 0.56 10*3/uL Normal 0.30-0.90 [facility] Comment on above: Performed By: #### L [id number] #### LAB [address] [place] [address] Jaron Méndez M.D. [id number] Monocytes/100 WBC (Bld) 8.6 % Normal [facility] Comment on above: Performed By: #### L [id number] #### LAB [address] [place] [address] Jaron Méndez M.D. [id number] NEUTROPHILS ABSOLUTE COUNT 4.72 K/mcL Normal 1.70-7.00 [facility] Comment on above: Performed By: #### L [id number] #### LAB [address] [place] [address] Jaron Méndez M.D. [id number] Neutrophils/100 WBC (Bld) 72.1 % Normal [facility] Comment on above: Performed By: #### L [id number] #### LAB [address] [place] [address] Jaron Méndez M.D. [id number] Platelet mean volume (Bld) [Entitic vol] 10.2 fL Normal 9.4-12.4 [facility] Comment on above: Performed By: #### L [id number] #### LAB [address] [place] [address] Jaron Méndez M.D. [id number] Platelets (Bld) [#/Vol] 299 10*3/uL Normal 150-400 [facility] Comment on above: Performed By: #### L [id number] #### LAB [address] [place] [address] Jaron Méndez M.D. [id number] RBC (Bld) [#/Vol] 3.29 10*6/uL Low 4.00-5.20 [facility] Comment on above: Performed By: #### L [id number] #### LAB [address] [place] [address] Jaron Méndez M.D. [id number] WBC (Bld) [#/Vol] 6.54 10*3/uL Normal 4.50-11.00 [facility] Comment on above: Performed By: #### L [id number] #### LAB [address] [place], [place] [address] Jaron Méndez M.D. [id number] COMPREHENSIVE METABOLIC PANE [place] 11-23-2023 Albumin [Mass/Vol] 3.4 g/dL Normal 3.2-5.2 [facility] Comment on above: Order Comment: [facility] has implemented the eGFR calculation approach that does not have a coefficient for race that conforms to the NKF-ASN Task Force Recommendations. Performed By: #### 4 6126 #### LAB [address] [address] Jaron Méndez M.D. [id number] ALP [Catalytic activity/Vol] 82 U/L Normal 40-150 [facility] Comment on above: Order Comment: [facility] has implemented the eGFR calculation approach that does not have a coefficient for race that conforms to the NKF-ASN Task Force Recommendations. Performed By: #### 4 6126 #### LAB [address] [address] Jaron Méndez M.D. [id number] ALT [Catalytic activity/Vol] 21 U/L Normal 0-35 U/L [facility] Comment on above: Order Comment: [facility] has implemented the eGFR calculation approach that does not have a coefficient for race that conforms to the NKF-ASN Task Force Recommendations. Performed By: #### 4 6126 #### LAB [address] [address] Jaron Méndez M.D. [id number] Anion gap [Moles/Vol] 16 mmol/L Normal 10-20 [facility] Comment on above: Order Comment: [facility] has implemented the eGFR calculation approach that does not have a coefficient for race that conforms to the NKF-ASN Task Force Recommendations. Performed By: #### 4 6126 #### LAB [address] [address] Jaron Méndez M.D. [id number] AST [Catalytic activity/Vol] 43 U/L High 0-35 U/L [facility] Comment on above: Order Comment: [facility] has implemented the eGFR calculation approach that does not have a coefficient for race that conforms to the NKF-ASN Task Force Recommendations. Performed By: #### 4 6126 #### LAB [address] [address] Jaron Méndez M.D. [id number] Bilirubin [Mass/Vol] 0.3 mg/dL Normal 0.0-1.3 [facility] Comment on above: Order Comment: [facility] has implemented the eGFR calculation approach that does not have a coefficient for race that conforms to the NKF-ASN Task Force Recommendations. Performed By: #### 4 6126 #### LAB [address] [address] Jaron Méndez M.D. [id number] Calcium [Mass/Vol] 8.8 mg/dL Normal 8.4-10.2 [facility] Comment on above: Order Comment: [facility] has implemented the eGFR calculation approach that does not have a coefficient for race that conforms to the NKF-ASN Task Force Recommendations. Performed By: #### 4 6126 #### LAB [address] [address] Jaron Méndez M.D. [id number] Chloride [Moles/Vol] 101 mmol/L Normal 98-108 [facility] Comment on above: Order Comment: [facility] has implemented the eGFR calculation approach that does not have a coefficient for race that conforms to the NKF-ASN Task Force Recommendations. Performed By: #### 4 6126 #### LAB [address] [address] Jaron Méndez M.D. [id number] Creatinine [Mass/Vol] 1.34 mg/dL High 0.60-1.10 [facility] Comment on above: Order Comment: [facility] has implemented the eGFR calculation approach that does not have a coefficient for race that conforms to the NKF-ASN Task Force Recommendations. Performed By: #### 4 6126 #### LAB [address] [address] Jaron Méndez M.D. [id number] EGFR 45 mL/min/1.73 m2 Low >=60 [facility] Comment on above: Order Comment: [facility] has implemented the eGFR calculation approach that does not have a coefficient for race that conforms to the NKF-ASN Task Force Recommendations. Result Comment: Joi mated GFR was calculated using the 2020 CKD-EPI creatinine equation. Performed By: #### 4 6126 #### LAB [address] [address] Jaron Méndez M.D. [id number] Glucose [Mass/Vol] 102 mg/dL High 65-99 [facility] Comment on above: Order Comment: [facility] has implemented the eGFR calculation approach that does not have a coefficient for race that conforms to the NKF-ASN Task Force Recommendations. Performed By: #### 4 6126 #### LAB [address] [address] Jaron Méndez M.D. [id number] HCO3 (Bld) [Moles/Vol] 21 mmol/L Normal 21-32 [facility] Comment on above: Order Comment: [facility] has implemented the eGFR calculation approach that does not have a coefficient for race that conforms to the NKF-ASN Task Force Recommendations. Performed By: #### 4 6126 #### LAB [address] [address] Jaron Méndez M.D. [id number] Potassium [Moles/Vol] 4.4 mmol/L Normal 3.5-5.1 [facility] Comment on above: Order Comment: [facility] has implemented the eGFR calculation approach that does not have a coefficient for race that conforms to the NKF-ASN Task Force Recommendations. Performed By: #### 4 6126 #### LAB [address] [address] Jaron Méndez M.D. [id number] Protein [Mass/Vol] 7.0 g/dL Normal 6.0-8.0 [facility] Comment on above: Order Comment: [facility] has implemented the eGFR calculation approach that does not have a coefficient for race that conforms to the NKF-ASN Task Force Recommendations. Performed By: #### 4 6126 #### LAB [address] [place], [place] [address] Jaron Méndez M.D. [id number] Sodium [Moles/Vol] 134 mmol/L Low 135-145 [facility] Comment on above: Order Comment: [facility] has implemented the eGFR calculation approach that does not have a coefficient for race that conforms to the NKF-ASN Task Force Recommendations. Performed By: #### 4 6126 #### LAB [address] [place], [place] [address] Jaron Méndez M.D. [id number] Urea nitrogen [Mass/Vol] 30 mg/dL High 8- [facility] Comment on above: Order Comment: [facility] has implemented the eGFR calculation approach that does not have a coefficient for race that conforms to the NKF-ASN Task Force Recommendations. Performed By: #### 4 6126 #### LAB [address] [address] Jaron Méndez M.D. [id number] Urea nitrogen/Creatinine [Mass ratio] 22.4 mg/mg High 10.0-20.0 [facility] Comment on above: Order Comment: [facility] has implemented the eGFR calculation approach that does not have a coefficient for race that conforms to the NKF-ASN Task Force Recommendations. Performed By: #### 4 6126 #### LAB [address] [address] Jaron Méndez M.D. [id number] External Lab PT/INRon 2023 INR Coag (PPP) [Relative time] 2.5 {INR} [facility] No Panel Informationon 11-20 [facility] [place] POCT PT/INROrdered By: Adilene Albright on 11-21-2023 INR Coag (Bld) [Relative time] 2.5 {INR} Abnormal 0.8 - 1.1 [facility] Interpretation and review of laboratory results Abnormal [facility] US RENAL ARTERY DUPLEX COMPL ETEon 11-16-2023 US RENAL ARTERY DUPLEX COMPLETE Patient Info Name: SCOTT OBREGON Age: 63 years : 1960 Gender: Female Exam Date: 11/16/2023 8:47 AM Patient Status: Outpatient Tearoom Host: Gosia Eric RDMS, RVT Referring Physician: TYLOR KRUGER ; Indications - 10-09-2023 Emergent EVAR with renal stenting with Dr. Kruger/Dr. Guerra Z98.890 - Other specified postprocedural states Procedure Description [id number] Duplex scan of arterial inflow and venous outflow of abdominal, pelvic, and/or retroperitoneal organs using B-mode, color and spectral Doppler; complete study. Conclusions * Right. * Unable to visualize right renal artery due to perinephric hematoma , however no flow was noted within kidney suggestive of renal artery occlusion. * CT scan 10/09/2023 : The right kidney is nonenhancing and displaced to the right with surrounding heterogeneous large perinephric hematoma. The right renal artery was not visualized and is likely occluded from compression. * Mixed echogenic area in the right upper quadrant measuring, 16.1 cm x 6.59 cm ,suggestive of the hematoma seen on previous CT scan,. * Right renal vein was not visualized. * Left. * Left renal artery stent is patent with 0-59% stenosis. * Left renal vein is patent. Recommendations * Recommend alternate imaging modality if clinically indicated. Aorta Name Value PSV Juxta-Renal Ao PSV 82 cm/s Aorta Name Value EDV Juxta-Renal Ao EDV 6 cm/s Measurements Name Value Size Right Kidney Length 12.0 cm Name Value LRA PSV Left Origin Renal PSV 73 cm/s Left Prox Renal PSV 71 cm/s Left Mid Renal PSV 92 cm/s Left Distal Renal PSV 87 cm/s Name Value LRA EDV Left Origin Renal EDV 26 cm/s Left Prox Renal EDV 16 cm/s Left Mid Renal EDV 21 cm/s Left Distal Renal EDV 17 cm/s Name Value Left RAR Left Origin Renal RAR 0.9 Left Prox Renal RAR 0.9 Left Mid Renal RAR 1.1 Left Distal Renal RAR 1.1 Name Value Size Left Kidney Length 12.0 cm Risk Factors Patient has a history of hypertension, hyperlipidemia, tobacco use-previous and DVT. 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 left renal stent. . Report Signatures Finalized by Amador John MD on 11/16/2023 01:27 PM Normal [facility] RENAL ARTERY DUPLEX COMPLETE Patient Info Name: SCOTT OBREGON Age: 63 years : 1960 Gender: Female Exam Date: 11/16/2023 8:47 AM Patient Status: Outpatient Tearoom Host: Gosia Eric RDMS, RVT Referring Physician: TYLOR KRUGER ; Indications - 10-09-2023 Emergent EVAR with renal stenting with Dr. Kruger/Dr. Guerra [id number] - Other specified postprocedural states Procedure Description 42217 Duplex scan of arterial inflow and venous outflow of abdominal, pelvic, and/or retroperitoneal organs using B-mode, color and spectral Doppler; complete study. Conclusions * Right. * Unable to visualize right renal artery due to perinephric hematoma , however no flow was noted within kidney suggestive of renal artery occlusion. * CT scan 10/09/2023 : The right kidney is nonenhancing and displaced to the right with surrounding heterogeneous large perinephric hematoma. The right renal artery was not visualized and is likely occluded from compression. * Mixed echogenic area in the right upper quadrant measuring, 16.1 cm x 6.59 cm ,suggestive of the hematoma seen on previous CT scan,. * Right renal vein was not visualized. * Left. * Left renal artery stent is patent with 0-59% stenosis. * Left renal vein is patent. Recommendations * Recommend alternate imaging modality if clinically indicated. Aorta Name Value PSV Juxta-Renal Ao PSV 82 cm/s Aorta Name Value EDV Juxta-Renal Ao EDV 6 cm/s Measurements Name Value Size Right Kidney Length 12.0 cm Name Value LRA PSV Left Origin Renal PSV 73 cm/s Left Prox Renal PSV 71 cm/s Left Mid Renal PSV 92 cm/s Left Distal Renal PSV 87 cm/s Name Value LRA EDV Left Origin Renal EDV 26 cm/s Left Prox Renal EDV 16 cm/s Left Mid Renal EDV 21 cm/s Left Distal Renal EDV 17 cm/s Name Value Left RAR Left Origin Renal RAR 0.9 Left Prox Renal RAR 0.9 Left Mid Renal RAR 1.1 Left Distal Renal RAR 1.1 Name Value Size Left Kidney Length 12.0 cm Risk Factors Patient has a history of hypertension, hyperlipidemia, tobacco use-previous and DVT. 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 left renal stent. . Report Signatures Finalized by Amador John MD on 11/16/2023 01:27 PM Dictated by: AMADOR JOHN on MonNov 16, 2023 1:32:30 PM EDT Transcribed by: AMADOR JOHN on MonNov 16, 2023 1:32:30 PM EDT Finalized by: AMADOR JOHN on MonNov 16, 2023 1:32:30 PM EDT Normal [facility] External Lab PT/INRon 2023 INR Coag (PPP) [Relative time] 3.5 {INR} [facility] No Panel Informationon 11-13 [facility] POCT PT/INROrdered By: Adilene Albright on 11-14-2023 INR Coag (Bld) [Relative time] 3.5 {INR} Abnormal 0.8 - 1.1 [facility] Interpretation and review of laboratory results Abnormal [facility] External Lab PT/INRon 2023 INR Coag (PPP) [Relative time] 2.3 {INR} [facility] No Panel Informationon 11-07 [facility] POCT PT/INROrdered By: Antonietta Monk on 11-08-2023 INR Coag (Bld) [Relative time] 2.3 {INR} Abnormal 0.8 - 1.1 [facility] Interpretation and review of laboratory results Abnormal [facility] PT Coag (PPP) [Time]on 11-01 INR Coag (PPP) [Relative time] 2.7 {INR} Normal <=5.0 [facility] Comment on above: Order Comment: The r ecommended therapeutic INR range for most cardiac indications is 2.0-3.0 For high intensity therapy (i.e. mechanical heart valves), the recommended range is 2.5-3.5 Performed By: #### 5 902-2 #### [facility] ([facility]) LAB [address] [place] [address] Prothrombin timeon PT Coag (PPP) [Time] 28.4 s High 11.9-14.7 [facility] Comment on above: Order Comment: The r ecommended therapeutic INR range for most cardiac indications is 2.0-3.0 For high intensity therapy (i.e. mechanical heart valves), the recommended range is 2.5-3.5 Performed By: #### 5 902-2 #### [facility] [place] ([facility] LAB [address] [place] [address]84 Comprehensive metabolic 2000 panelon 10-31-2023 Albumin [Mass/Vol] 2.6 g/dL Low 3.5-4.8 [facility] Comment on above: Performed By: #### 5 902-2 #### [facility] [place] [facility] [address] [place] [address] 94119 ALP [Catalytic activity/Vol] 59 U/L Normal 32-91 [facility] Comment on above: Performed By: #### 5 902-2 #### [facility] [place] [facility] [address] [place] [address] 25220 ALT [Catalytic activity/Vol] 21 U/L Normal 7-52 [facility] Comment on above: Performed By: #### 5 902-2 #### [facility] [place] [facility] [address] [place] [address] 72607 Anion gap [Moles/Vol] 10 mmol/L Normal 6-18 [facility] Comment on above: Performed By: #### 5 902-2 #### [facility] [place] [facility] [address] [place] [address] 33727 AST [Catalytic activity/Vol] 32 U/L Normal 15-41 [facility] Comment on above: Performed By: #### 5 902-2 #### [facility] [place] [facility] [address] [place] [address] 58314 Bilirubin [Mass/Vol] 0.4 mg/dL Normal 0.3-1.2 [facility] Comment on above: Performed By: #### 5 902-2 #### [facility] [place] [facility] [address] [place] [address] Calcium [Mass/Vol] 8.3 mg/dL Low 8.9-10.3 [facility] Comment on above: Performed By: #### 5 902-2 #### [facility] [place] [facility] [address] [place] [address] Chloride [Moles/Vol] 105 mmol/L Normal 98-107 [facility] Comment on above: Performed By: #### 5 902-2 #### [facility] [place] [facility] [address] [place] [address] CO2 [Moles/Vol] 20 mmol/L Low 22-32 [facility] Comment on above: Performed By: #### 5 902-2 #### [facility] ([facility] [address] [place] [address] Creatinine [Mass/Vol] 1.12 mg/dL Normal 0.60-1.30 [facility] Comment on above: Performed By: #### 5 902-2 #### [facility] [address] [place] [address] GFR/1.73 sq M.predicted among non-blacks MDRD (S/P/Bld) [Vol rate/Area] 56 mL/min/{1.73_m2} Low >=60 [facility] Comment on above: Result Comment: Calc ulation based on the?Chronic Kidney Disease Epidemiology Collaboration (CKD-EPI) equation refit?without adjustment for race. Performed By: #### 5 902-2 #### [facility] [place] [facility] [address] [place] [address] Glucose [Mass/Vol] 76 mg/dL Normal 70-99 [facility] Comment on above: Performed By: #### 5 902-2 #### [facility] [place] [facility] [address] [place] [address] Potassium [Moles/Vol] 4.7 mmol/L Normal 3.6-5.1 [facility] Comment on above: Performed By: #### 5 902-2 #### [facility] [place] [facility] [address] [place] [address] Protein [Mass/Vol] 6.4 g/dL Normal 6.1-7.9 [facility] Comment on above: Performed By: #### 5 902-2 #### [facility] [place] [facility] [address] [place] [address] 18413 Sodium [Moles/Vol] 135 mmol/L Low 136-145 [facility] Comment on above: Performed By: #### 5 902-2 #### [facility] [place] [facility] [address] [place] [address] 55747 Urea nitrogen [Mass/Vol] 30 mg/dL High 8-20 [facility] Comment on above: Performed By: #### 5 902-2 #### [facility] [place] [facility] [address] [place] [address] 14273 Urea nitrogen/Creatinine [Mass ratio] 26.8 mg/mg High 12.0-20.0 [facility] Comment on above: Performed By: #### 5 902-2 #### [facility] [place] [facility] [address] [place] [address] 47137 Hemogram and platelets WO di fferential panel (Bld)on 10-31-2023 Erythrocyte distribution width (RBC) [Ratio] 19.0 % High 11.0-14.8 [facility] Comment on above: Performed By: #### 5 902-2 #### [facility] [address] [place] [address] 17384 Hematocrit (Bld) [Volume fraction] 28.9 % Low 34.3-47.9 [facility] Comment on above: Performed By: #### 5 902-2 #### [facility] [address] [place] [address] 58943 Hemoglobin (Bld) [Mass/Vol] 8.8 g/dL Low 12.0-16.0 [facility] Comment on above: Performed By: #### 5 902-2 #### [facility] [place] [facility] [address] [place] [address] 43301 MCH 26.7 pcg Low 27.0-34.0 [facility] Comment on above: Performed By: #### 5 902-2 #### [facility] [place] [facility] [address] [place] [address] 65875 MCHC (RBC) [Mass/Vol] 30.4 g/dL Low 30.8-35.3 [facility] Comment on above: Performed By: #### 5 902-2 #### [facility] [address] [place] [address] 26394 MCV (RBC) [Entitic vol] 87.8 fL Normal 80.0-97.0 [facility] Comment on above: Performed By: #### 5 902-2 #### [facility] [address] [place] [address] 37781 Platelet mean volume (Bld) [Entitic vol] 9.3 fL Normal 6.2-12.1 [facility] Comment on above: Performed By: #### 5 902-2 #### [facility] [address] [place] [address] 30198 Platelets (Bld) [#/Vol] 369 10*3/uL Normal 142-424 [facility] Comment on above: Performed By: #### 5 902-2 #### [facility] [address] [place] [address] 19555 RBC (Bld) [#/Vol] 3.29 10*6/uL Low 3.74-5.34 [facility] Comment on above: Performed By: #### 5 902-2 #### [facility] [address] [place] [address] 94579 WBC (Bld) [#/Vol] 7.3 10*3/uL Normal 4.6-10.2 [facility] Comment on above: Performed By: #### 5 902-2 #### [facility] [address] [place] [address] PT Coag (PPP) [Time]on 10-30 INR Coag (PPP) [Relative time] 2.8 {INR} Normal <=5.0 [facility] Comment on above: Order Comment: The r ecommended therapeutic INR range for most cardiac indications is 2.0-3.0 For high intensity therapy (i.e. mechanical heart valves), the recommended range is 2.5-3.5 Performed By: #### 5 902-2 #### [facility] [address] [place] [address] Prothrombin timeon PT Coag (PPP) [Time] 29.2 s High 11.9-14.7 [facility] Comment on above: Order Comment: The r ecommended therapeutic INR range for most cardiac indications is 2.0-3.0 For high intensity therapy (i.e. mechanical heart valves), the recommended range is 2.5-3.5 Performed By: #### 5 902-2 #### [facility] [address] [place] [address] Basic metabolic 2000 panelon 10-30-2023 Anion gap [Moles/Vol] 7 mmol/L Normal 6-18 [facility] Comment on above: Performed By: #### 2 4321-2 #### [facility] [address] [place] [address] Calcium [Mass/Vol] 8.3 mg/dL Low 8.9-10.3 [facility] Comment on above: Performed By: #### 2 4321-2 #### [facility] [address] [place] [address] Chloride [Moles/Vol] 104 mmol/L Normal 98-107 [facility] Comment on above: Performed By: #### 2 4321-2 #### [facility] [address] [place] [address] CO2 [Moles/Vol] 22 mmol/L Normal 22-32 [facility] Comment on above: Performed By: #### 2 4321-2 #### [facility] [address] [place] [address] 47017 Creatinine [Mass/Vol] 1.20 mg/dL Normal 0.60-1.30 [facility] Comment on above: Performed By: #### 2 4321-2 #### [facility] [address] [place] [address] 84652 GFR/1.73 sq M.predicted among non-blacks MDRD (S/P/Bld) [Vol rate/Area] 52 mL/min/{1.73_m2} Low >=60 [facility] Comment on above: Result Comment: Calc ulation based on the?Chronic Kidney Disease Epidemiology Collaboration (CKD-EPI) equation refit?without adjustment for race. Performed By: #### 2 4321-2 #### [facility] [address] [place] [address] 37227 Glucose [Mass/Vol] 79 mg/dL Normal 70-99 [facility] Comment on above: Performed By: #### 2 4321-2 #### [facility] [address] [place] [address] 23116 Potassium [Moles/Vol] 4.4 mmol/L Normal 3.6-5.1 [facility] Comment on above: Performed By: #### 2 4321-2 #### [facility] [address] [place] [address] 18555 Sodium [Moles/Vol] 133 mmol/L Low 136-145 [facility] Comment on above: Performed By: #### 2 4321-2 #### [facility] [address] [place] [address] 49129 Urea nitrogen [Mass/Vol] 29 mg/dL High 8-20 [facility] Comment on above: Performed By: #### 2 4321-2 #### [facility] [place] [facility] [address] [place] [address] 06071 Urea nitrogen/Creatinine [Mass ratio] 24.2 mg/mg High 12.0-20.0 [facility] Comment on above: Performed By: #### 2 4321-2 #### [facility] [place] [facility] [address] [place] [address] 12384 Hemogram and platelets WO di fferential panel (Bld)on 10-30-2023 Erythrocyte distribution width (RBC) [Ratio] 19.1 % High 11.0-14.8 [facility] Comment on above: Performed By: #### 5 902-2 #### [facility] ([facility]) [facility] [address] [place] [address] 50844 Hematocrit (Bld) [Volume fraction] 29.6 % Low 34.3-47.9 [facility] Comment on above: Performed By: #### 5 902-2 #### [facility] [address] [place] [address] 19926 Hemoglobin (Bld) [Mass/Vol] 9.1 g/dL Low 12.0-16.0 [facility] Comment on above: Performed By: #### 5 902-2 #### [facility] ([facility]) [address] [address] MCH 26.8 pcg Low 27.0-34.0 [facility] Comment on above: Performed By: #### 5 902-2 #### [facility] [address] [place] [address] 41326 MCHC (RBC) [Mass/Vol] 30.7 g/dL Low 30.8-35.3 [facility] Comment on above: Performed By: #### 5 902-2 #### [facility] [address] [place] [address] 21264 MCV (RBC) [Entitic vol] 87.1 fL Normal 80.0-97.0 [facility] Comment on above: Performed By: #### 5 902-2 #### [facility] ([facility] [address] [place] [address] Platelet mean volume (Bld) [Entitic vol] 9.5 fL Normal 6.2-12.1 [facility] Comment on above: Performed By: #### 5 902-2 #### [facility] [place] [facility] [address] [place] [address] 14123 Platelets (Bld) [#/Vol] 338 10*3/uL Normal 142-424 [facility] Comment on above: Performed By: #### 902-2 #### [facility] [address] [place] [address] 21538 RBC (Bld) [#/Vol] 3.40 10*6/uL Low 3.74-5.34 [facility] Comment on above: Performed By: #### 902-2 #### [facility] [address] [place] [address] 10721 WBC (Bld) [#/Vol] 5.7 10*3/uL Normal 4.6-10.2 [facility] Comment on above: Performed By: #### 902-2 #### [facility] [address] [place] [address] 08589 Nuclear IgG IA Ql (S)on Amorphous Crystals, Urine Moderate Abnormal None [facility] Comment on above: Performed By: #### 902-2 #### [facility] [address] [place] [address] 65436 Bacteria, Urine Rare Abnormal None [facility] Comment on above: Performed By: #### 902-2 #### [facility] [address] [place] [address] 24001 Bilirubin, Urine Negative Normal Negative [facility] Comment on above: Performed By: #### 902-2 #### [facility] [address] [place] [address] 69660 Blood, Urine 1+ Abnormal Negative, Trace [facility] Comment on above: Performed By: #### 90-2 #### [facility] [place] [facility] [address] [place] [address] Clarity (U) Hazy Abnormal Clear [facility] Comment on above: Performed By: #### 90-2 #### [facility] [address] [place] [address] Color (U) Yellow Normal Yellow [facility] Comment on above: Performed By: #### 90-2 #### [facility] [place] [facility] [address] [place] [address] Glucose Ql (U) Normal Normal Normal [facility] Comment on above: Performed By: #### 90-2 #### [facility] [address] [place] [address] Ketones Ql (U) Negative Normal Negative [facility] Comment on above: Performed By: #### 90-2 #### [facility] [address] [place] [address] Leukocytes, Urine 75 WBCs/mcL Abnormal Negative [facility] Comment on above: Performed By: #### 90-2 #### [facility] [place] [facility] [address] [place] [address] Mucus, UA Rare Abnormal None [facility] Comment on above: Performed By: #### 90-2 #### [facility] [address] [place] [address] Nitrite, Urine Negative Normal Negative [facility] Comment on above: Performed By: #### 90-2 #### [facility] [address] [place] [address] pH (U) 7.5 [pH] Normal 5.0-8.0 [facility] Comment on above: Performed By: #### 90-2 #### [facility] [address] [place] [address] Protein (U) [Mass/Vol] 50 mg/dL Abnormal Negative [facility] Comment on above: Performed By: #### 5 902-2 #### [facility] ([facility]) [facility] [address] [place] [address] RBC LM.HPF (Urine sed) [#/Area] 3 /[HPF] Normal 0-5 [facility] Comment on above: Performed By: #### 5 902-2 #### [facility] ([facility] [address] [place] [address] 30218 Specific Gladys Urine 1.024 Normal 1.002 -1.03 0 [facility] Comment on above: Performed By: #### 5 902-2 #### [facility] [address] [place] [address] 53285 Squamous Epithelial, Urine Rare Abnormal None [facility] Comment on above: Performed By: #### 5 902-2 #### [facility] [address] [place] [address] 34021 Triple Phosphate Crystals, Urine Rare Abnormal None [facility] Comment on above: Performed By: #### 5 902-2 #### [facility] [address] [place] [address] 64957 Urobilinogen, Urine Normal Normal Normal [facility] Comment on above: Performed By: #### 5 902-2 #### [facility] [address] [place] [address] 90951 WBC LM.HPF (Urine sed) [#/Area] 19 /[HPF] High 0-5 [facility] Comment on above: Performed By: #### 5 902-2 #### [facility] ([facility] [address] [place] [address] 47672 PT Coag (PPP) [Time]on 10-29 INR Coag (PPP) [Relative time] 2.5 {INR} Normal <=5.0 [facility] Comment on above: Order Comment: The r ecommended therapeutic INR range for most cardiac indications is 2.0-3.0 For high intensity therapy (i.e. mechanical heart valves), the recommended range is 2.5-3.5 Performed By: #### 5 902-2 #### [facility] ([facility]) LAB [address] [place] [address] 37851 Prothrombin timeon 4 PT Coag (PPP) [Time] 26.6 s High 11.9-14.7 [facility] Comment on above: Order Comment: The r ecommended therapeutic INR range for most cardiac indications is 2.0-3.0 For high intensity therapy (i.e. mechanical heart valves), the recommended range is 2.5-3.5 Performed By: #### 5 902-2 #### [facility] [address] [place] [address] 51255 Sodium (U) [Moles/Vol]on Creatinine, Urine 76.8 mg/dL Normal [facility] Comment on above: Order Comment: No re ference range has been established for this assay (test result). Performed By: #### 2 4321-2 #### [facility] ([facility]) LAB [address] [place] [address] 57586 PT Coag (PPP) [Time]on 10-28 INR Coag (PPP) [Relative time] 2.6 {INR} Normal <=5.0 [facility] Comment on above: Order Comment: The r ecommended therapeutic INR range for most cardiac indications is 2.0-3.0 For high intensity therapy (i.e. mechanical heart valves), the recommended range is 2.5-3.5 Performed By: #### 5 902-2 #### [facility] ([facility]) LAB [address] [place] [address] Prothrombin timeon 4 PT Coag (PPP) [Time] 27.3 s High 11.9-14.7 [facility] Comment on above: Order Comment: The r ecommended therapeutic INR range for most cardiac indications is 2.0-3.0 For high intensity therapy (i.e. mechanical heart valves), the recommended range is 2.5-3.5 Performed By: #### 5 902-2 #### [facility] ([facility]) [facility] [address] [place] [address] 70412 PT Coag (PPP) [Time]on 10-27 INR Coag (PPP) [Relative time] 2.6 {INR} Normal <=5.0 [facility] Comment on above: Order Comment: The r ecommended therapeutic INR range for most cardiac indications is 2.0-3.0 For high intensity therapy (i.e. mechanical heart valves), the recommended range is 2.5-3.5 Performed By: #### 5 902-2 #### [facility] ([facility]) [facility] [address] [place] [address] 04032 Prothrombin timeon PT Coag (PPP) [Time] 27.3 s High 11.9-14.7 [facility] Comment on above: Order Comment: The r ecommended therapeutic INR range for most cardiac indications is 2.0-3.0 For high intensity therapy (i.e. mechanical heart valves), the recommended range is 2.5-3.5 Performed By: #### 5 902-2 #### [facility] ([facility]) [facility] [address] [place] [address] 07380 Comprehensive metabolic 2000 panelon 10-27-2023 Albumin [Mass/Vol] 2.7 g/dL Low 3.5-4.8 [facility] Comment on above: Performed By: #### 2 4323-8 #### [facility] ([facility]) [facility] [address] [place] [address] 76214 ALP [Catalytic activity/Vol] 59 U/L Normal 32-91 [facility] Comment on above: Performed By: #### 2 4323-8 #### [facility] ([facility]) [facility] [address] [place] [address] 89547 ALT [Catalytic activity/Vol] 21 U/L Normal 7-52 [facility] Comment on above: Performed By: #### 2 4323-8 #### [facility] [place] [facility] [address] [place] [address] Anion gap [Moles/Vol] 9 mmol/L Normal 6-18 [facility] Comment on above: Performed By: #### 2 4323-8 #### [facility] [place] [facility] [address] [place] [address] AST [Catalytic activity/Vol] 34 U/L Normal 15-41 [facility] Comment on above: Performed By: #### 2 4323-8 #### [facility] [place] [facility] [address] [place] [address] Bilirubin [Mass/Vol] 0.5 mg/dL Normal 0.3-1.2 [facility] Comment on above: Performed By: #### 2 432-8 #### [facility] [place] [facility] [address] [place] [address] Calcium [Mass/Vol] 8.4 mg/dL Low 8.9-10.3 [facility] Comment on above: Performed By: #### 2 4322-8 #### [facility] [place] [facility] [address] [place] [address] Chloride [Moles/Vol] 106 mmol/L Normal 98-107 [facility] Comment on above: Performed By: #### 2 432-8 #### [facility] [place] [facility] [address] [place] [address] CO2 [Moles/Vol] 20 mmol/L Low 22-32 [facility] Comment on above: Performed By: #### 2 4323-8 #### [facility] [place] [facility] [address] [place] [address] Creatinine [Mass/Vol] 1.22 mg/dL Normal 0.60-1.30 [facility] Comment on above: Performed By: #### 2 4323-8 #### [facility] [place] [facility] [address] [place] [address] GFR/1.73 sq M.predicted among non-blacks MDRD (S/P/Bld) [Vol rate/Area] 51 mL/min/{1.73_m2} Low >=60 [facility] Comment on above: Result Comment: Calc ulation based on the?Chronic Kidney Disease Epidemiology Collaboration (CKD-EPI) equation refit?without adjustment for race. Performed By: #### 2 4323-8 #### [facility] [place] [facility] [address] [place] [address] Glucose [Mass/Vol] 78 mg/dL Normal 70-99 [facility] Comment on above: Performed By: #### 2 4323-8 #### [facility] [place] [facility] [address] [place] [address]107 Potassium [Moles/Vol] 4.6 mmol/L Normal 3.6-5.1 [facility] Comment on above: Performed By: #### 2 432-8 #### [facility] [place] [facility] [address] [place] [address] 98401 Protein [Mass/Vol] 6.4 g/dL Normal 6.1-7.9 [facility] Comment on above: Performed By: #### 2 4323-8 #### [facility] [place] [facility] [address] [place] [address] 65063 Sodium [Moles/Vol] 135 mmol/L Low 136-145 [facility] Comment on above: Performed By: #### 2 4323-8 #### [facility] [place] [facility] [address] [place] [address] 38588 Urea nitrogen [Mass/Vol] 33 mg/dL High 8-20 [facility] Comment on above: Performed By: #### 2 4323-8 #### [facility] [place] [facility] [address] [place] [address] 52600 Urea nitrogen/Creatinine [Mass ratio] 27.0 mg/mg High 12.0-20.0 [facility] Comment on above: Performed By: #### 2 4323-8 #### [facility] [place] [facility] [address] [place] [address] 25525 Hemogram and platelets WO di fferential panel (Bld)on 10-27-2023 Erythrocyte distribution width (RBC) [Ratio] 19.0 % High 11.0-14.8 [facility] Comment on above: Performed By: #### 2 4321-2 #### [facility] [place] [facility]) [facility] [address] [place] [address] 13645 Hematocrit (Bld) [Volume fraction] 28.1 % Low 34.3-47.9 [facility] Comment on above: Performed By: #### 2 4321-2 #### [facility] [place] [facility] [address] [place] [address] 61876 Hemoglobin (Bld) [Mass/Vol] 8.7 g/dL Low 12.0-16.0 [facility] Comment on above: Performed By: #### 2 4321-2 #### [facility] [place] [facility] [address] [place] [address] 80614 MCH 26.4 pcg Low 27.0-34.0 [facility] Comment on above: Performed By: #### 2 4321-2 #### [facility] [place] [facility] [address] [place] [address] 54369 MCHC (RBC) [Mass/Vol] 31.0 g/dL Normal 30.8-35.3 [facility] Comment on above: Performed By: #### 2 4321-2 #### [facility] [place] [facility] [address] [place] [address] 66826 MCV (RBC) [Entitic vol] 85.2 fL Normal 80.0-97.0 [facility] Comment on above: Performed By: #### 2 4321-2 #### [facility] [place] [facility] [address] [place] [address] 19722 Platelet mean volume (Bld) [Entitic vol] 9.2 fL Normal 6.2-12.1 [facility] Comment on above: Performed By: #### 2 4321-2 #### [facility] [place] [facility] [address] [place] [address] Platelets (Bld) [#/Vol] 396 10*3/uL Normal 142-424 [facility] Comment on above: Performed By: #### 2 4321-2 #### [facility] [place] [facility] [address] [place] [address] 89392 RBC (Bld) [#/Vol] 3.30 10*6/uL Low 3.74-5.34 [facility] Comment on above: Performed By: #### 2 4321-2 #### [facility] [place] [facility] [address] [place] [address] 68813 WBC (Bld) [#/Vol] 7.2 10*3/uL Normal 4.6-10.2 [facility] Comment on above: Performed By: #### 2 4321-2 #### [facility] [place] [facility] [address] [place] [address] 95153 PT Coag (PPP) [Time]on 10-26 INR Coag (PPP) [Relative time] 2.5 {INR} Normal <=5.0 [facility] Comment on above: Order Comment: The r ecommended therapeutic INR range for most cardiac indications is 2.0-3.0 For high intensity therapy (i.e. mechanical heart valves), the recommended range is 2.5-3.5 Performed By: #### 5 902-2 #### [facility] [place] [facility] [address] [place] [address] 15655 Prothrombin timeon PT Coag (PPP) [Time] 26.3 s High 11.9-14.7 [facility] Comment on above: Order Comment: The r ecommended therapeutic INR range for most cardiac indications is 2.0-3.0 For high intensity therapy (i.e. mechanical heart valves), the recommended range is 2.5-3.5 Performed By: #### 5 902-2 #### [facility] [place] [facility] [address] [place] [address] Basic metabolic 2000 panelon 10-26-2023 Iron [Mass/Vol] 25 ug/dL Low 37-145 [facility] Comment on above: Performed By: #### 2 4321-2 #### [facility] [place] [facility] [address] [place] [address] Iron Saturation 12 % Low 20-55 [facility] Comment on above: Performed By: #### 2 4321-2 #### [facility] [place] [facility] [address] [place] [address] 33905 TIBC 214 mcg/dL Low 228-428 [facility] Comment on above: Performed By: #### 2 4321-2 #### [facility] [place] [facility] [address] [place] [address] 28302 Hemogram and platelets WO di fferential panel (Bld)on 10-26-2023 Erythrocyte distribution width (RBC) [Ratio] 18.9 % High 11.0-14.8 [facility] Comment on above: Performed By: #### 2 4317-0 #### [facility] [place] [facility] [address] [place] [address] 57055 Hematocrit (Bld) [Volume fraction] 28.9 % Low 34.3-47.9 [facility] Comment on above: Performed By: #### 2 4317-0 #### [facility] [address] [place] [address] 33752 Hemoglobin (Bld) [Mass/Vol] 9.0 g/dL Low 12.0-16.0 [facility] Comment on above: Performed By: #### 2 4317-0 #### [facility] [address] [place] [address] 02009 MCH 26.4 pcg Low 27.0-34.0 [facility] Comment on above: Performed By: #### 2 4317-0 #### [facility] [place] [facility] [address] [place] [address] MCHC (RBC) [Mass/Vol] 31.1 g/dL Normal 30.8-35.3 [facility] Comment on above: Performed By: #### 2 4317-0 #### [facility] [place] [facility] [address] [place] [address] 27036 MCV (RBC) [Entitic vol] 84.8 fL Normal 80.0-97.0 [facility] Comment on above: Performed By: #### 2 4317-0 #### [facility] [place] [facility] [address] [place] [address] 18051 Platelet mean volume (Bld) [Entitic vol] 9.1 fL Normal 6.2-12.1 [facility] Comment on above: Performed By: #### 2 4317-0 #### [facility] [place] [facility] [address] [place] [address] 83859 Platelets (Bld) [#/Vol] 417 10*3/uL Normal 142-424 [facility] Comment on above: Performed By: #### 2 4317-0 #### [facility] [place] [facility] [address] [place] [address] 47633 RBC (Bld) [#/Vol] 3.41 10*6/uL Low 3.74-5.34 [facility] Comment on above: Performed By: #### 2 4317-0 #### [facility] [place] [facility] [address] [place] [address] 41619 WBC (Bld) [#/Vol] 7.5 10*3/uL Normal 4.6-10.2 [facility] Comment on above: Performed By: #### 2 4317-0 #### [facility] [address] [place] [address] 36874 PT Coag (PPP) [Time]on 10-25 INR Coag (PPP) [Relative time] 2.1 {INR} Normal <=5.0 [facility] Comment on above: Order Comment: The r ecommended therapeutic INR range for most cardiac indications is 2.0-3.0 For high intensity therapy (i.e. mechanical heart valves), the recommended range is 2.5-3.5 Performed By: #### 5 902-2 #### [facility] [address] [place] [address] Prothrombin timeon PT Coag (PPP) [Time] 23.2 s High 11.9-14.7 [facility] Comment on above: Order Comment: The r ecommended therapeutic INR range for most cardiac indications is 2.0-3.0 For high intensity therapy (i.e. mechanical heart valves), the recommended range is 2.5-3.5 Performed By: #### 5 902-2 #### [facility] [address] [place] [address] Basic metabolic 2000 panelon 10-25-2023 Anion gap [Moles/Vol] 9 mmol/L Normal 6-18 [facility] Comment on above: Performed By: #### 5 902-2 #### [facility] [address] [place] [address] 60364 Calcium [Mass/Vol] 8.4 mg/dL Low 8.9-10.3 [facility] Comment on above: Performed By: #### 5 902-2 #### [facility] [address] [place] [address] 91658 Chloride [Moles/Vol] 104 mmol/L Normal 98-107 [facility] Comment on above: Performed By: #### 5 902-2 #### [facility] [address] [place] [address] 81702 CO2 [Moles/Vol] 20 mmol/L Low 22-32 [facility] Comment on above: Performed By: #### 5 902-2 #### [facility] [address] [place] [address] 53527 Creatinine [Mass/Vol] 1.25 mg/dL Normal 0.60-1.30 [facility] Comment on above: Performed By: #### 5 902-2 #### [facility] [address] [place] [address] 26560 GFR/1.73 sq M.predicted among non-blacks MDRD (S/P/Bld) [Vol rate/Area] 49 mL/min/{1.73_m2} Low >=60 [facility] Comment on above: Result Comment: Calc ulation based on the?Chronic Kidney Disease Epidemiology Collaboration (CKD-EPI) equation refit?without adjustment for race. Performed By: #### 5 902-2 #### [facility] [place] [facility] [address] [place] [address] 74331 Glucose [Mass/Vol] 80 mg/dL Normal 70-99 [facility] Comment on above: Performed By: #### 5 902-2 #### [facility] [address] [place] [address] 56243 Potassium [Moles/Vol] 4.6 mmol/L Normal 3.6-5.1 [facility] Comment on above: Performed By: #### 5 902-2 #### [facility] [place] [facility] [address] [place] [address] 25176 Sodium [Moles/Vol] 133 mmol/L Low 136-145 [facility] Comment on above: Performed By: #### 5 902-2 #### [facility] [address] [place] [address] 45576 Urea nitrogen [Mass/Vol] 27 mg/dL High 8-20 [facility] Comment on above: Performed By: #### 5 902-2 #### [facility] [place] [facility] [address] [place] [address] 75358 Urea nitrogen/Creatinine [Mass ratio] 21.6 mg/mg High 12.0-20.0 [facility] Comment on above: Performed By: #### 5 902-2 #### [facility] [address] [place] [address] 38896 Blood type and Indirect anti body screen panel (Bld)on 10-25-2023 ABO group Nom (Bld) O Normal [facility] Comment on above: Performed By: #### 3 4532-2 #### [facility]) [facility] [address] [place] [address] Rh Type Positive Normal [facility] Comment on above: Performed By: #### 3 4532-2 #### [facility] ([facility] [address] [place] [address] Hemogram and platelets WO di fferential panel (Bld)on 10-25-2023 Erythrocyte distribution width (RBC) [Ratio] 18.3 % High 11.0-14.8 [facility] Comment on above: Performed By: #### 2 4317-0 #### [facility] ([facility]) [facility] [address] [place] [address] Hematocrit (Bld) [Volume fraction] 22.1 % Low 34.3-47.9 [facility] Comment on above: Performed By: #### 2 4317-0 #### [facility] [address] [place] [address] Hemoglobin (Bld) [Mass/Vol] 6.7 g/dL Critically low 12.0-16.0 [facility] Comment on above: Performed By: #### 2 4317-0 #### [facility]) [facility] [address] [place] [address] MCH 27.0 pcg Normal 27.0-34.0 [facility] Comment on above: Performed By: #### 2 4317-0 #### [facility] [address] [place] [address] MCHC (RBC) [Mass/Vol] 30.3 g/dL Low 30.8-35.3 [facility] Comment on above: Performed By: #### 2 4317-0 #### [facility] [address] [place] [address] MCV (RBC) [Entitic vol] 89.1 fL Normal 80.0-97.0 [facility] Comment on above: Performed By: #### 2 4317-0 #### [facility] [place] [facility] [address] [place] [address] 54960 Platelet mean volume (Bld) [Entitic vol] 9.1 fL Normal 6.2-12.1 [facility] Comment on above: Performed By: #### 2 4317-0 #### [facility] [place] [facility] [address] [place] [address] 37967 Platelets (Bld) [#/Vol] 434 10*3/uL High 142-424 [facility] Comment on above: Performed By: #### 2 4317-0 #### [facility] [place] [facility] [address] [place] [address] 51296 RBC (Bld) [#/Vol] 2.48 10*6/uL Low 3.74-5.34 [facility] Comment on above: Performed By: #### 2 4317-0 #### [facility] [place] [facility] [address] [place] [address] 67096 WBC (Bld) [#/Vol] 8.6 10*3/uL Normal 4.6-10.2 [facility] Comment on above: Performed By: #### 2 4317-0 #### [facility] [address] [place] [address] 58847 PT Coag (PPP) [Time]on 10-24 INR Coag (PPP) [Relative time] 2.0 {INR} Normal <=5.0 [facility] Comment on above: Order Comment: The r ecommended therapeutic INR range for most cardiac indications is 2.0-3.0 For high intensity therapy (i.e. mechanical heart valves), the recommended range is 2.5-3.5 Performed By: #### 5 902-2 #### [facility] [place] [facility] [address] [place] [address] 32398 Prothrombin timeon PT Coag (PPP) [Time] 22.0 s High 11.9-14.7 [facility] Comment on above: Order Comment: The r ecommended therapeutic INR range for most cardiac indications is 2.0-3.0 For high intensity therapy (i.e. mechanical heart valves), the recommended range is 2.5-3.5 Performed By: #### 5 902-2 #### [facility]) [facility] [address] [place] [address] PT Coag (PPP) [Time]on 10-23 INR Coag (PPP) [Relative time] 1.8 {INR} Normal <=5.0 [facility] Comment on above: Order Comment: The r ecommended therapeutic INR range for most cardiac indications is 2.0-3.0 For high intensity therapy (i.e. mechanical heart valves), the recommended range is 2.5-3.5 Performed By: #### 5 902-2 #### [facility]) [facility] [address] [place] [address] 94442 Prothrombin timeon 4 PT Coag (PPP) [Time] 20.2 s High 11.9-14.7 [facility] Comment on above: Order Comment: The r ecommended therapeutic INR range for most cardiac indications is 2.0-3.0 For high intensity therapy (i.e. mechanical heart valves), the recommended range is 2.5-3.5 Performed By: #### 5 902-2 #### [facility]) [facility] [address] [place] [address] PT Coag (PPP) [Time]on 10-22 INR Coag (PPP) [Relative time] 1.7 {INR} Normal <=5.0 [facility] Comment on above: Order Comment: The r ecommended therapeutic INR range for most cardiac indications is 2.0-3.0For high intensity therapy (i.e. mechanical heart valves), the recommended range is 2.5-3.5 Performed By: #### 2 4321-2 #### [facility]) [facility] [address] [place] [address] Prothrombin timeon 4 PT Coag (PPP) [Time] 19.6 s High 11.9-14.7 [facility] Comment on above: Order Comment: The r ecommended therapeutic INR range for most cardiac indications is 2.0-3.0For high intensity therapy (i.e. mechanical heart valves), the recommended range is 2.5-3.5 Performed By: #### 2 4321-2 #### [facility]) [facility] [address] [place] [address] 74868 PT Coag (PPP) [Time]on 10-20 INR Coag (PPP) [Relative time] 2.9 {INR} Normal <=5.0 [facility] Comment on above: Order Comment: The r ecommended therapeutic INR range for most cardiac indications is 2.0-3.0 For high intensity therapy (i.e. mechanical heart valves), the recommended range is 2.5-3.5 Performed By: #### 5 902-2 #### [facility]) [facility] [address] [place] [address] 70039 Prothrombin timeon 4 PT Coag (PPP) [Time] 29.5 s High 11.9-14.7 [facility] Comment on above: Order Comment: The r ecommended therapeutic INR range for most cardiac indications is 2.0-3.0 For high intensity therapy (i.e. mechanical heart valves), the recommended range is 2.5-3.5 Performed By: #### 5 902-2 #### [facility] ([facility]) [facility] [address] [place] [address] 04095 CALCIUM, IONIZEDon 4 CALCIUM IONIZED 4.4 mg/dL Low 4.5-5.3 [facility] Comment on above: Performed By: #### 4 5190 ####[facility] [address] [place], [place] [address] Glenn Gudino M.D. [id number] CBCon 10-20-2023 AUTO NRBC 0.0 % Normal [facility] Comment on above: Performed By: #### 4 5218 ####[facility] [address] [place], [place] [id number] Glenn Gudino M.D. [id number] AUTO NRBC ABS COUNT 0.00 K/mcL Normal 0.00-0.00 [facility] Comment on above: Performed By: #### 4 5218 ####[facility] [address] [place] [address] Glenn Gudino M.D. [id number] Erythrocyte distribution width (RBC) [Ratio] 17.4 % High 11.6-14.8 [facility] Comment on above: Performed By: #### 4 5218 ####[facility] [address] [place] [address] Glenn Gudino M.D. [id number] Hematocrit (Bld) [Volume fraction] 23.6 % Low 36.0-46.0 [facility] Comment on above: Performed By: #### 4 [id number] ####[facility] [address] [place], [place] [address] Glenn Gudino M.D. [id number] Hemoglobin (Bld) [Mass/Vol] 7.4 g/dL Low 12.0-16.0 [facility] Comment on above: Performed By: #### 4 [id number] ####[facility] [address] [place], [place] [address] Glenn Gudino M.D. [id number] MCH (RBC) [Entitic mass] 27.4 pg Normal 26.0-34.0 [facility] Comment on above: Performed By: #### 4 [id number] ####[facility] [address] [place], [place] [address] Glenn Gudino M.D. [id number] MCV (RBC) [Entitic vol] 87.4 fL Normal 80.0-100.0 [facility] Comment on above: Performed By: #### 4 [id number] ####[facility] [address] [place] [address] 60425 Glenn Gudino M.D. [id number] MEAN CORPUSCULAR HEMOGLOBIN CONC 31.4 g/dL Normal 31.0-37.0 [facility] Comment on above: Performed By: #### 4 [id number] ####[facility] [address] [place] [address] 26947 Glenn Gudino M.D. [id number] Platelet mean volume (Bld) [Entitic vol] 9.3 fL Low 9.4-12.4 [facility] Comment on above: Performed By: #### 4 [id number] ####[facility] [address] [place], [place] [address] Glenn Gudino M.D. [id number] Platelets (Bld) [#/Vol] 489 10*3/uL High 150-400 [facility] Comment on above: Performed By: #### 4 [id number] ####[facility] [address] [place] [address] 38314 Glenn Gudino M.D. [id number] RBC (Bld) [#/Vol] 2.70 10*6/uL Low 4.00-5.20 [facility] Comment on above: Performed By: #### 4 [id number] ####[facility] [address] [place] [address] 15660 Glenn Gudino M.D. [id number] WBC (Bld) [#/Vol] 12.80 10*3/uL High 4.50-11.00 [facility] Comment on above: Performed By: #### 4 [id number] ####[facility] [address] [place] [address] 93058 Glenn Gudino M.D. [id number] COMPREHENSIVE METABOLIC PANE Magdaleno 10-20-2023 Albumin [Mass/Vol] 2.3 g/dL Low 3.2-5.2 [facility] Comment on above: Order Comment: [facility] has implemented the eGFR calculation approach that does not have a coefficient for race that conforms to the NKF-ASN Task Force Recommendations. Performed By: #### 4 [id number] ####[facility] [address] [place], [place] [address] Glenn Gudino M.D. [id number] ALP [Catalytic activity/Vol] 104 U/L Normal 40-150 [facility] Comment on above: Order Comment: [facility] has implemented the eGFR calculation approach that does not have a coefficient for race that conforms to the NKF-ASN Task Force Recommendations. Performed By: #### 4 [id number] ####[facility] [address] [place], [place] [address] Glenn Gudino M.D. [id number] ALT [Catalytic activity/Vol] 26 U/L Normal 0-35 U/L [facility] Comment on above: Order Comment: [facility] has implemented the eGFR calculation approach that does not have a coefficient for race that conforms to the NKF-ASN Task Force Recommendations. Performed By: #### 4 [id number] ####[facility] [address] [place] [address] 17476 Glenn Gudino M.D. [id number] Anion gap [Moles/Vol] 11 mmol/L Normal 10-20 [facility] Comment on above: Order Comment: [facility] has implemented the eGFR calculation approach that does not have a coefficient for race that conforms to the NKF-ASN Task Force Recommendations. Performed By: #### 4 [id number] ####[facility] [address] [place] [address] 04169 Glenn Gudino M.D. [id number] AST [Catalytic activity/Vol] 59 U/L High 0-35 U/L [facility] Comment on above: Order Comment: [facility] has implemented the eGFR calculation approach that does not have a coefficient for race that conforms to the NKF-ASN Task Force Recommendations. Performed By: #### 4 [id number] ####[facility] [address] [place], [place] [address] Glenn Gudino M.D. [id number] Bilirubin [Mass/Vol] 0.4 mg/dL Normal 0.0-1.3 [facility] Comment on above: Order Comment: [facility] has implemented the eGFR calculation approach that does not have a coefficient for race that conforms to the NKF-ASN Task Force Recommendations. Performed By: #### 4 [id number] ####[facility] [address] [place], [place] [address] Glenn Gudino M.D. [id number] Calcium [Mass/Vol] 7.9 mg/dL Low 8.4-10.2 [facility] Comment on above: Order Comment: [facility] has implemented the eGFR calculation approach that does not have a coefficient for race that conforms to the NKF-ASN Task Force Recommendations. Performed By: #### 4 6126 ####[facility] [address] [place], [place] [address] Glenn Gudino M.D. [id number] Chloride [Moles/Vol] 105 mmol/L Normal 98-108 [facility] Comment on above: Order Comment: [facility] has implemented the eGFR calculation approach that does not have a coefficient for race that conforms to the NKF-ASN Task Force Recommendations. Performed By: #### 4 [id number] ####[facility] [address] [place] [address] 21945 Glenn Gudino M.D. [id number] Creatinine [Mass/Vol] 0.84 mg/dL Normal 0.60-1.10 [facility] Comment on above: Order Comment: [facility] has implemented the eGFR calculation approach that does not have a coefficient for race that conforms to the NKF-ASN Task Force Recommendations. Performed By: #### 4 [id number] ####[facility] [address] [place], [place] [address] Glenn Gudino M.D. [id number] EGFR 79 mL/min/1.73 m2 Normal >=60 [facility] Comment on above: Order Comment: [facility] has implemented the eGFR calculation approach that does not have a coefficient for race that conforms to the NKF-ASN Task Force Recommendations. Result Comment: Joi mated GFR was calculated using the 2020 CKD-EPI creatinine equation. Performed By: #### 4 [id number] ####[facility] [address] [place], [place] [address] Glenn Gudino M.D. [id number] Glucose [Mass/Vol] 106 mg/dL High 65-99 [facility] Comment on above: Order Comment: [facility] has implemented the eGFR calculation approach that does not have a coefficient for race that conforms to the NKF-ASN Task Force Recommendations. Performed By: #### 4 6126 ####[facility] [address] [place], [place] [address] Glenn Gudino M.D. [id number] HCO3 (Bld) [Moles/Vol] 23 mmol/L Normal 21-32 [facility] Comment on above: Order Comment: [facility] has implemented the eGFR calculation approach that does not have a coefficient for race that conforms to the NKF-ASN Task Force Recommendations. Performed By: #### 4 [id number] ####[facility] [address] [place], [place] [address] Glenn Gudino M.D. [id number] Potassium [Moles/Vol] 4.3 mmol/L Normal 3.5-5.1 [facility] Comment on above: Order Comment: [facility] has implemented the eGFR calculation approach that does not have a coefficient for race that conforms to the NKF-ASN Task Force Recommendations. Performed By: #### 4 [id number] ####[facility] [address] [place], [place] [address] Glenn Gudino M.D. [id number] Protein [Mass/Vol] 6.2 g/dL Normal 6.0-8.0 [facility] Comment on above: Order Comment: [facility] has implemented the eGFR calculation approach that does not have a coefficient for race that conforms to the NKF-ASN Task Force Recommendations. Performed By: #### 4 [id number] ####[facility] [address] [place] [address] 01788 Glenn Gudino M.D. [id number] Sodium [Moles/Vol] 135 mmol/L Normal 135-145 [facility] Comment on above: Order Comment: [facility] has implemented the eGFR calculation approach that does not have a coefficient for race that conforms to the NKF-ASN Task Force Recommendations. Performed By: #### 4 6126 ####[facility] [address] [place] [address] 91168 Glenn Gudino M.D. [id number] Urea nitrogen [Mass/Vol] 21 mg/dL Normal 8-25 [facility] Comment on above: Order Comment: [facility] has implemented the eGFR calculation approach that does not have a coefficient for race that conforms to the NKF-ASN Task Force Recommendations. Performed By: #### 4 [id number] ####[facility] [address] [place] [address] 12542 Glenn Gudino M.D. [id number] Urea nitrogen/Creatinine [Mass ratio] 25.0 mg/mg High 10.0-20.0 [facility] Comment on above: Order Comment: [facility] has implemented the eGFR calculation approach that does not have a coefficient for race that conforms to the NKF-ASN Task Force Recommendations. Performed By: #### 4 [id number] ####[facility] [address] [place] [address] 16889 Glenn Gudino M.D. [id number] Disch Summon 10-20-2023 Disch Summ Normal [facility] MAGNESIUM LEVELon 10-20-2023 Magnesium [Mass/Vol] 2.1 mg/dL Normal 1.6-2.4 [facility] Comment on above: Performed By: #### 4 6109 ####[facility] [address] [place], [place] [address] Glenn Gudino M.D. [id number] PHOSPHORUSon 10-20-2023 Phosphate [Mass/Vol] 2.8 mg/dL Normal 2.8-4.1 [facility] Comment on above: Performed By: #### 4 6299 ####[facility] [address] [place], [place] [address] Glenn Gudino M.D. [id number] PT/INRon 10-20-2023 INR Coag (PPP) [Relative time] 3.6 {INR} High 0.8-1.1 [facility] Comment on above: Order Comment: Jennifer retana the induction phase of oral anticoagulation, the INR may not reflect the anticoagulation status of the patient. Therapeutic ranges for INR's are:Most clinical situations: INR 2.0-3.0Mechanical Prosthetic Valve: INR 2.5-3.5Critical: INR >5.0 Performed By: #### 4 6391 ####[facility] [address] [place], [place] [address] Glenn Gudino M.D. [id number] PT Coag (PPP) [Time] 37.0 s High 11.8-14.3 [facility] Comment on above: Order Comment: Jennifer retana the induction phase of oral anticoagulation, the INR may not reflect the anticoagulation status of the patient. Therapeutic ranges for INR's are:Most clinical situations: INR 2.0-3.0Mechanical Prosthetic Valve: INR 2.5-3.5Critical: INR >5.0 Performed By: #### 4 6391 ####[facility] [address] [place], [place] [address] Glenn Gudino M.D. [id number] CALCIUM, IONIZEDon CALCIUM IONIZED 4.4 mg/dL Low 4.5-5.3 [facility] Comment on above: Performed By: #### 4 5190 ####[facility] [address] [place], [place] [address] Glenn Gudino M.D. [id number] CBCon 10-19-2023 AUTO NRBC 0.0 % Normal [facility] Comment on above: Performed By: #### 4 [id number] ####[facility] [address] [place] [address] Glenn Gudino M.D. [id number] AUTO NRBC ABS COUNT 0.00 K/mcL Normal 0.00-0.00 [facility] Comment on above: Performed By: #### 4 [id number] ####[facility] [address] [place] [address] Glenn Gudino M.D. [id number] Erythrocyte distribution width (RBC) [Ratio] 17.4 % High 11.6-14.8 [facility] Comment on above: Performed By: #### 4 [id number] ####[facility] [address] [place], [place] [address] Glenn Gudino M.D. [id number] Hematocrit (Bld) [Volume fraction] 26.6 % Low 36.0-46.0 [facility] Comment on above: Performed By: #### 4 [id number] ####[facility] [address] [place], [place] [address] Glenn Gudino M.D. [id number] Hemoglobin (Bld) [Mass/Vol] 8.3 g/dL Low 12.0-16.0 [facility] Comment on above: Performed By: #### 4 [id number] ####[facility] [address] [place], [place] [address] Glenn Gudino M.D. [id number] MCH (RBC) [Entitic mass] 27.5 pg Normal 26.0-34.0 [facility] Comment on above: Performed By: #### 4 [id number] ####[facility] [address] [place] [address] 88319 Glenn Gudino M.D. [id number] MCV (RBC) [Entitic vol] 88.1 fL Normal 80.0-100.0 [facility] Comment on above: Performed By: #### 4 [id number] ####[facility] [address] [place] [address] Glenn Gudino M.D. [id number] MEAN CORPUSCULAR HEMOGLOBIN CONC 31.2 g/dL Normal 31.0-37.0 [facility] Comment on above: Performed By: #### 4 [id number] ####[facility] [address] [place], [place] [address] Glenn Gudino M.D. [id number] Platelet mean volume (Bld) [Entitic vol] 9.2 fL Low 9.4-12.4 [facility] Comment on above: Performed By: #### 4 [id number] ####[facility] [address] [place], [place] [address] Glenn Gudino M.D. [id number] Platelets (Bld) [#/Vol] 485 10*3/uL High 150-400 [facility] Comment on above: Performed By: #### 4 [id number] ####[facility] [address] [place], [place] [address]Karma Gudino M.D. [id number] RBC (Bld) [#/Vol] 3.02 10*6/uL Low 4.00-5.20 [facility] Comment on above: Performed By: #### 4 [id number] ####[facility] [address] [place], [place] [address] Glenn Gudino M.D. [id number] WBC (Bld) [#/Vol] 12.60 10*3/uL High 4.50-11.00 [facility] Comment on above: Performed By: #### 4 [id number] ####[facility] [address] [place] [address] 24552 Glenn Gudino M.D. [id number] COMPREHENSIVE METABOLIC PANE [place]dal[place] 10-19-2023 Albumin [Mass/Vol] 2.3 g/dL Low 3.2-5.2 [facility] Comment on above: Order Comment: [facility] has implemented the eGFR calculation approach that does not have a coefficient for race that conforms to the NKF-ASN Task Force Recommendations. Performed By: #### 4 [id number] ####[facility] [address] [place] [address] 38326 Glenn Gudino M.D. [id number] ALP [Catalytic activity/Vol] 103 U/L Normal 40-150 [facility] Comment on above: Order Comment: [facility] has implemented the eGFR calculation approach that does not have a coefficient for race that conforms to the NKF-ASN Task Force Recommendations. Performed By: #### 4 [id number] ####[facility] [address] [place] [address] 93649 Glenn Gudino M.D. [id number] ALT [Catalytic activity/Vol] 23 U/L Normal 0-35 U/L [facility] Comment on above: Order Comment: [facility] has implemented the eGFR calculation approach that does not have a coefficient for race that conforms to the NKF-ASN Task Force Recommendations. Performed By: #### 4 [id number] ####[facility] [address] [place] [address] 67553 Glenn Gudino M.D. [id number] Anion gap [Moles/Vol] 14 mmol/L Normal 10-20 [facility] Comment on above: Order Comment: [facility] has implemented the eGFR calculation approach that does not have a coefficient for race that conforms to the NKF-ASN Task Force Recommendations. Performed By: #### 4 [id number] ####[facility] [address] [place] [address] 01661 Glenn Gudino M.D. [id number] AST [Catalytic activity/Vol] 63 U/L High 0-35 U/L [facility] Comment on above: Order Comment: [facility] has implemented the eGFR calculation approach that does not have a coefficient for race that conforms to the NKF-ASN Task Force Recommendations. Performed By: #### 4 [id number] ####[facility] [address] [place] [address] Glenn Gudino M.D. [id number] Bilirubin [Mass/Vol] 0.6 mg/dL Normal 0.0-1.3 [facility] Comment on above: Order Comment: [facility] has implemented the eGFR calculation approach that does not have a coefficient for race that conforms to the NKF-ASN Task Force Recommendations. Performed By: #### 4 6126 ####[facility] [address] [place], [place] [address] Glenn Gudino M.D. [id number] Calcium [Mass/Vol] 8.2 mg/dL Low 8.4-10.2 [facility] Comment on above: Order Comment: [facility] has implemented the eGFR calculation approach that does not have a coefficient for race that conforms to the NKF-ASN Task Force Recommendations. Performed By: #### 4 6126 ####[facility] [address] [place], [place] [address] Glenn Gudino M.D. [id number] Chloride [Moles/Vol] 102 mmol/L Normal 98-108 [facility] Comment on above: Order Comment: [facility] has implemented the eGFR calculation approach that does not have a coefficient for race that conforms to the NKF-ASN Task Force Recommendations. Performed By: #### 4 6126 ####[facility] [address] [place], [place] [address] Glenn Gudino M.D. [id number] Creatinine [Mass/Vol] 0.94 mg/dL Normal 0.60-1.10 [facility] Comment on above: Order Comment: [facility] has implemented the eGFR calculation approach that does not have a coefficient for race that conforms to the NKF-ASN Task Force Recommendations. Performed By: #### 4 [id number] ####[facility] [address] [place] [address] 67850 Glenn Gudino M.D. [id number] EGFR 69 mL/min/1.73 m2 Normal >=60 [facility] Comment on above: Order Comment: [facility] has implemented the eGFR calculation approach that does not have a coefficient for race that conforms to the NKF-ASN Task Force Recommendations. Result Comment: Joi mated GFR was calculated using the 2020 CKD-EPI creatinine equation. Performed By: #### 4 [id number] ####[facility] [address] [place] [address] 88129 Glenn Gudino M.D. [id number] Glucose [Mass/Vol] 82 mg/dL Normal 65-99 [facility] Comment on above: Order Comment: [facility] has implemented the eGFR calculation approach that does not have a coefficient for race that conforms to the NKF-ASN Task Force Recommendations. Performed By: #### 4 [id number] ####[facility] [address] [place] [address] 19419 Glenn Gudino M.D. [id number] HCO3 (Bld) [Moles/Vol] 22 mmol/L Normal 21-32 [facility] Comment on above: Order Comment: [facility] has implemented the eGFR calculation approach that does not have a coefficient for race that conforms to the NKF-ASN Task Force Recommendations. Performed By: #### 4 [id number] ####[facility] [address] [place] [address] 25555 Glenn Gudino M.D. [id number] Potassium [Moles/Vol] 3.7 mmol/L Normal 3.5-5.1 [facility] Comment on above: Order Comment: [facility] has implemented the eGFR calculation approach that does not have a coefficient for race that conforms to the NKF-ASN Task Force Recommendations. Performed By: #### 4 [id number] ####[facility] [address] [place] [address] 62884 Glenn Gudino M.D. [id number] Protein [Mass/Vol] 6.6 g/dL Normal 6.0-8.0 [facility] Comment on above: Order Comment: [facility] has implemented the eGFR calculation approach that does not have a coefficient for race that conforms to the NKF-ASN Task Force Recommendations. Performed By: #### 4 [id number] ####[facility] [address] [place] [address] 83496 Glenn Gudino M.D. [id number] Sodium [Moles/Vol] 134 mmol/L Low 135-145 [facility] Comment on above: Order Comment: [facility] has implemented the eGFR calculation approach that does not have a coefficient for race that conforms to the NKF-ASN Task Force Recommendations. Performed By: #### 4 [id number] ####[facility] [address] [place] [address] 79980 Glenn Gudino M.D. [id number] Urea nitrogen [Mass/Vol] 22 mg/dL Normal 8-25 [facility] Comment on above: Order Comment: [facility] has implemented the eGFR calculation approach that does not have a coefficient for race that conforms to the NKF-ASN Task Force Recommendations. Performed By: #### 4 [id number] ####[facility] [address] [place] [address] 21585 Glenn Gudino M.D. [id number] Urea nitrogen/Creatinine [Mass ratio] 23.4 mg/mg High 10.0-20.0 [facility] Comment on above: Order Comment: [facility] has implemented the eGFR calculation approach that does not have a coefficient for race that conforms to the NKF-ASN Task Force Recommendations. Performed By: #### 4 [id number] ####[facility] [address] [place], [place] [address] Glenn Gudino M.D. [id number] MAGNESIUM LEVELon 10-19-2023 Magnesium [Mass/Vol] 1.9 mg/dL Normal 1.6-2.4 [facility] Comment on above: Performed By: #### 4 6109 ####[facility] [address] [place] [address] Glenn Gudino M.D. [id number] PHOSPHORUSon 10-19-2023 Phosphate [Mass/Vol] 2.4 mg/dL Low 2.8-4.1 [facility] Comment on above: Performed By: #### 4 6299 ####[facility] [address] [place], [place] [address] Glenn Gudino M.D. [id number] POTASSIUM LEVELon 10-19-2023 Potassium [Moles/Vol] 3.8 mmol/L Normal 3.5-5.1 [facility] Comment on above: Performed By: #### 4 6351 ####[facility] [address] [place], [place] [address] Glenn Gudino M.D. [id number] PT/INRon 10-19-2023 INR Coag (PPP) [Relative time] 3.6 {INR} High 0.8-1.1 [facility] Comment on above: Order Comment: Jennifer retana the induction phase of oral anticoagulation, the INR may not reflect the anticoagulation status of the patient. Therapeutic ranges for INR's are:Most clinical situations: INR 2.0-3.0Mechanical Prosthetic Valve: INR 2.5-3.5Critical: INR >5.0 Performed By: #### 4 6391 ####[facility] [address] [place] [address] Glenn Gudino M.D. [id number] PT Coag (PPP) [Time] 36.9 s High 11.8-14.3 [facility] Comment on above: Order Comment: Jennifer retana the induction phase of oral anticoagulation, the INR may not reflect the anticoagulation status of the patient. Therapeutic ranges for INR's are:Most clinical situations: INR 2.0-3.0Mechanical Prosthetic Valve: INR 2.5-3.5Critical: INR >5.0 Performed By: #### 4 [id number] ####[facility] [address] [place] [address] Glenn Gudino M.D. [id number] CALCIUM, IONIZEDon CALCIUM IONIZED 4.7 mg/dL Normal 4.5-5.3 [facility] Comment on above: Performed By: #### 4 [id number] ####[facility] [address] [place] [address] Glenn Gudino M.D. [id number] CBCon 10-18-2023 AUTO NRBC 0.0 % Normal [facility] Comment on above: Performed By: #### 4 [id number] ####[facility] [address] [place], [place] [address] Glenn Gudino M.D. [id number] AUTO NRBC ABS COUNT 0.00 K/mcL Normal 0.00-0.00 [facility] Comment on above: Performed By: #### 4 [id number] ####[facility] [address] [place], [place] [address] Glenn Gudino M.D. [id number] Erythrocyte distribution width (RBC) [Ratio] 17.6 % High 11.6-14.8 [facility] Comment on above: Performed By: #### 4 [id number] ####[facility] [address] [place], [place] [address] Glenn Gudino M.D. [id number] Hematocrit (Bld) [Volume fraction] 25.4 % Low 36.0-46.0 [facility] Comment on above: Performed By: #### 4 [id number] ####[facility] [address] [place], [place] [address] Glenn Gudino M.D. [id number] Hemoglobin (Bld) [Mass/Vol] 8.0 g/dL Low 12.0-16.0 [facility] Comment on above: Performed By: #### 4 [id number] ####[facility] [address] [place] [address] Glenn Gudino M.D. [id number] MCH (RBC) [Entitic mass] 27.1 pg Normal 26.0-34.0 [facility] Comment on above: Performed By: #### 4 [id number] ####[facility] [address] [place] [address] Glenn Gudino M.D. [id number] MCV (RBC) [Entitic vol] 86.1 fL Normal 80.0-100.0 [facility] Comment on above: Performed By: #### 4 [id number] ####[facility] [address] [place], [place] [address] Glenn Gudino M.D. [id number] MEAN CORPUSCULAR HEMOGLOBIN CONC 31.5 g/dL Normal 31.0-37.0 [facility] Comment on above: Performed By: #### 4 [id number] ####[facility] [address] [place], [place] [address] Glenn Gudino M.D. [id number] Platelet mean volume (Bld) [Entitic vol] 9.0 fL Low 9.4-12.4 [facility] Comment on above: Performed By: #### 4 [id number] ####[facility] [address] [place], [place] [address] Glenn Gudino M.D. [id number] Platelets (Bld) [#/Vol] 463 10*3/uL High 150-400 [facility] Comment on above: Performed By: #### 4 [id number] ####[facility] [address] [place] [address] Glenn Gudino M.D. [id number] RBC (Bld) [#/Vol] 2.95 10*6/uL Low 4.00-5.20 [facility] Comment on above: Performed By: #### 4 [id number] ####[facility] [address] [place] [address] Glenn Gudino M.D. [id number] WBC (Bld) [#/Vol] 15.56 10*3/uL High 4.50-11.00 [facility] Comment on above: Performed By: #### 4 [id number] ####[facility] [address] [place] [address] Glenn Gudino M.D. [id number] COMPREHENSIVE METABOLIC PANE [facility] 10-18-2023 Albumin [Mass/Vol] 2.4 g/dL Low 3.2-5.2 [facility] Comment on above: Order Comment: [facility] has implemented the eGFR calculation approach that does not have a coefficient for race that conforms to the NKF-ASN Task Force Recommendations. Performed By: #### 4 [id number] ####[facility] [address] [place] [address] Glenn Gudino M.D. [id number] ALP [Catalytic activity/Vol] 100 U/L Normal 40-150 [facility] Comment on above: Order Comment: [facility] has implemented the eGFR calculation approach that does not have a coefficient for race that conforms to the NKF-ASN Task Force Recommendations. Performed By: #### 4 [id number] ####[facility] [address] [place] [address] Glenn Gudino M.D. [id number] ALT [Catalytic activity/Vol] 26 U/L Normal 0-35 U/L [facility] Comment on above: Order Comment: [facility] has implemented the eGFR calculation approach that does not have a coefficient for race that conforms to the NKF-ASN Task Force Recommendations. Performed By: #### 4 [id number] ####[facility] [address] [place], [place] [address] Glenn Gudino M.D. [id number] Anion gap [Moles/Vol] 13 mmol/L Normal 10-20 [facility] Comment on above: Order Comment: [facility] has implemented the eGFR calculation approach that does not have a coefficient for race that conforms to the NKF-ASN Task Force Recommendations. Performed By: #### 4 6126 ####[facility] [address] [place], [place] [address] Glenn Gudino M.D. [id number] AST [Catalytic activity/Vol] 52 U/L High 0-35 U/L [facility] Comment on above: Order Comment: [facility] has implemented the eGFR calculation approach that does not have a coefficient for race that conforms to the NKF-ASN Task Force Recommendations. Performed By: #### 4 6126 ####[facility] [address] [place], [place] [address] Glenn Gudino M.D. [id number] Bilirubin [Mass/Vol] 0.5 mg/dL Normal 0.0-1.3 [facility] Comment on above: Order Comment: [facility] has implemented the eGFR calculation approach that does not have a coefficient for race that conforms to the NKF-ASN Task Force Recommendations. Performed By: #### 4 6126 ####[facility] [address] [place] [address] Glenn Gudino M.D. [id number] Calcium [Mass/Vol] 8.3 mg/dL Low 8.4-10.2 [facility] Comment on above: Order Comment: [facility] has implemented the eGFR calculation approach that does not have a coefficient for race that conforms to the NKF-ASN Task Force Recommendations. Performed By: #### 4 6126 ####[facility] [address] [place] [address] Glenn Gudino M.D. [id number] Chloride [Moles/Vol] 101 mmol/L Normal 98-108 [facility] Comment on above: Order Comment: [facility] has implemented the eGFR calculation approach that does not have a coefficient for race that conforms to the NKF-ASN Task Force Recommendations. Performed By: #### 4 6126 ####[facility] [address] [place] [address] Glenn Gudino M.D. [id number] Creatinine [Mass/Vol] 0.93 mg/dL Normal 0.60-1.10 [facility] Comment on above: Order Comment: [facility] has implemented the eGFR calculation approach that does not have a coefficient for race that conforms to the NKF-ASN Task Force Recommendations. Performed By: #### 4 6126 ####[facility] [address] [place] [address] Glenn Gudino M.D. [id number] EGFR 70 mL/min/1.73 m2 Normal >=60 [facility] Comment on above: Order Comment: [facility] has implemented the eGFR calculation approach that does not have a coefficient for race that conforms to the NKF-ASN Task Force Recommendations. Result Comment: Joi mated GFR was calculated using the 2020 CKD-EPI creatinine equation. Performed By: #### 4 [id number] ####[facility] [address] [place] [address] Glenn Gudino M.D. [id number] Glucose [Mass/Vol] 96 mg/dL Normal 65-99 [facility] Comment on above: Order Comment: [facility] has implemented the eGFR calculation approach that does not have a coefficient for race that conforms to the NKF-ASN Task Force Recommendations. Performed By: #### 4 6126 ####[facility] [address] [place] [address] Glenn Gudino M.D. [id number] HCO3 (Bld) [Moles/Vol] 25 mmol/L Normal 21-32 [facility] Comment on above: Order Comment: [facility] has implemented the eGFR calculation approach that does not have a coefficient for race that conforms to the NKF-ASN Task Force Recommendations. Performed By: #### 4 6126 ####[facility] [address] [place] [address] Glenn Gudino M.D. [id number] Potassium [Moles/Vol] 4.0 mmol/L Normal 3.5-5.1 [facility] Comment on above: Order Comment: [facility] has implemented the eGFR calculation approach that does not have a coefficient for race that conforms to the NKF-ASN Task Force Recommendations. Performed By: #### 4 6126 ####[facility] [address] [place], [place] [address] Glenn Gudino M.D. [id number] Protein [Mass/Vol] 6.6 g/dL Normal 6.0-8.0 [facility] Comment on above: Order Comment: [facility] has implemented the eGFR calculation approach that does not have a coefficient for race that conforms to the NKF-ASN Task Force Recommendations. Performed By: #### 4 6126 ####[facility] [address] [place] [address] Glenn Gudino M.D. [id number] Sodium [Moles/Vol] 135 mmol/L Normal 135-145 [facility] Comment on above: Order Comment: [facility] has implemented the eGFR calculation approach that does not have a coefficient for race that conforms to the NKF-ASN Task Force Recommendations. Performed By: #### 4 6126 ####[facility] [address] [place], [place] [address] Glenn Gudino M.D. [id number] Urea nitrogen [Mass/Vol] 22 mg/dL Normal 8-25 [facility] Comment on above: Order Comment: [facility] has implemented the eGFR calculation approach that does not have a coefficient for race that conforms to the NKF-ASN Task Force Recommendations. Performed By: #### 4 [id number] ####[facility] [address] [place], [place] [address] Glenn Gudino M.D. [id number] Urea nitrogen/Creatinine [Mass ratio] 23.7 mg/mg High 10.0-20.0 [facility] Comment on above: Order Comment: [facility] has implemented the eGFR calculation approach that does not have a coefficient for race that conforms to the NKF-ASN Task Force Recommendations. Performed By: #### 4 6126 ####[facility] [address] [place], [place] [address] Glenn Gudino M.D. [id number] CONSULTon 10-18-2023 CONSULT Normal [facility] MAGNESIUM LEVELon 10-18-2023 Magnesium [Mass/Vol] 1.9 mg/dL Normal 1.6-2.4 [facility] Comment on above: Performed By: #### 4 6109 ####[facility] [address] [place], [place] [address] Glenn Gudino M.D. [id number] PHOSPHORUSon 10-18-2023 Phosphate [Mass/Vol] 2.6 mg/dL Low 2.8-4.1 [facility] Comment on above: Performed By: #### 4 6299 ####[facility] [address] [place] [address] Glenn Gudino M.D. [id number] PT/INRon 10-18-2023 INR Coag (PPP) [Relative time] 3.4 {INR} High 0.8-1.1 [facility] Comment on above: Order Comment: Jennifer retana the induction phase of oral anticoagulation, the INR may not reflect the anticoagulation status of the patient. Therapeutic ranges for INR's are:Most clinical situations: INR 2.0-3.0Mechanical Prosthetic Valve: INR 2.5-3.5Critical: INR >5.0 Performed By: #### 4 6391 ####[facility] [address] [place] [address] Glenn Gudino M.D. [id number] PT Coag (PPP) [Time] 35.0 s High 11.8-14.3 [facility] Comment on above: Order Comment: Jennifer retana the induction phase of oral anticoagulation, the INR may not reflect the anticoagulation status of the patient. Therapeutic ranges for INR's are:Most clinical situations: INR 2.0-3.0Mechanical Prosthetic Valve: INR 2.5-3.5Critical: INR >5.0 Performed By: #### 4 6391 ####[facility] [address] [place], [place] [address] Glenn Gudino M.D. [id number] URINALYSISon 10-18-2023 BACTERIA, URINE Few Abnormal None Seen [facility] Comment on above: Order Comment: Micro scopic examination is performed on all urinalysis samples and only positive findings are reported. The test for blood on the chemical analytic portion of urinalysis may also be positive due to hemoglobinuria and myoglobinuria and if red blood cells are present they are quantified by microscopic examination. Performed By: #### 4 [id number] ####[facility] [address] [place], [place] [address] Glenn Gudino M.D. [id number] BILIRUBIN, URINE Negative Normal Negative [facility] Comment on above: Order Comment: Micro scopic examination is performed on all urinalysis samples and only positive findings are reported. The test for blood on the chemical analytic portion of urinalysis may also be positive due to hemoglobinuria and myoglobinuria and if red blood cells are present they are quantified by microscopic examination. Performed By: #### 4 [id number] ####[facility] [address] [place] [address] Glenn Gudino M.D. [id number] BLOOD, URINE Small Abnormal Negative [facility] Comment on above: Order Comment: Micro scopic examination is performed on all urinalysis samples and only positive findings are reported. The test for blood on the chemical analytic portion of urinalysis may also be positive due to hemoglobinuria and myoglobinuria and if red blood cells are present they are quantified by microscopic examination. Performed By: #### 4 [id number] ####[facility] [address] [place] [address] Glenn Gudino M.D. [id number] Clarity (U) Cloudy Abnormal Clear [facility] Comment on above: Order Comment: Micro scopic examination is performed on all urinalysis samples and only positive findings are reported. The test for blood on the chemical analytic portion of urinalysis may also be positive due to hemoglobinuria and myoglobinuria and if red blood cells are present they are quantified by microscopic examination. Performed By: #### 4 [id number] ####[facility] [address] [place] [address] Glenn Gudino M.D. [id number] Color (U) Yellow Normal Colorless, Yellow [facility] Comment on above: Order Comment: Micro scopic examination is performed on all urinalysis samples and only positive findings are reported. The test for blood on the chemical analytic portion of urinalysis may also be positive due to hemoglobinuria and myoglobinuria and if red blood cells are present they are quantified by microscopic examination. Performed By: #### 4 [id number] ####[facility] [address] [place] [address] Glenn Gudino M.D. [id number] Glucose Ql (U) Negative Normal Negative [facility] Comment on above: Order Comment: Micro scopic examination is performed on all urinalysis samples and only positive findings are reported. The test for blood on the chemical analytic portion of urinalysis may also be positive due to hemoglobinuria and myoglobinuria and if red blood cells are present they are quantified by microscopic examination. Performed By: #### 4 [id number] ####[facility] [address] [place] [address] Glenn Gudion M.D. [id number] Ketones Ql (U) Negative Normal Negative [facility] Comment on above: Order Comment: Micro scopic examination is performed on all urinalysis samples and only positive findings are reported. The test for blood on the chemical analytic portion of urinalysis may also be positive due to hemoglobinuria and myoglobinuria and if red blood cells are present they are quantified by microscopic examination. Performed By: #### 4 [id number] ####[facility] [address] [place], [place] [address] Glenn Gudino M.D. [id number] Leukocyte esterase Test strip Ql (U) Large Abnormal Negative [facility] Comment on above: Order Comment: Micro scopic examination is performed on all urinalysis samples and only positive findings are reported. The test for blood on the chemical analytic portion of urinalysis may also be positive due to hemoglobinuria and myoglobinuria and if red blood cells are present they are quantified by microscopic examination. Performed By: #### 4 [id number] ####[facility] [address] [place], [place] [address] Glenn Gudino M.D. [id number] NITRITE, URINE Negative Normal Negative [facility] Comment on above: Order Comment: Micro scopic examination is performed on all urinalysis samples and only positive findings are reported. The test for blood on the chemical analytic portion of urinalysis may also be positive due to hemoglobinuria and myoglobinuria and if red blood cells are present they are quantified by microscopic examination. Performed By: #### 4 [id number] ####[facility] [address] [place] [address] Glenn Gudino M.D. [id number] pH (U) 6.5 [pH] Normal 5.0-7.0 [facility] Comment on above: Order Comment: Micro scopic examination is performed on all urinalysis samples and only positive findings are reported. The test for blood on the chemical analytic portion of urinalysis may also be positive due to hemoglobinuria and myoglobinuria and if red blood cells are present they are quantified by microscopic examination. Performed By: #### 4 [id number] ####[facility] [address] [place] [address] Glenn Gudino M.D. [id number] Protein (U) [Mass/Vol] 30 mg/dL Abnormal Negative [facility] Comment on above: Order Comment: Micro scopic examination is performed on all urinalysis samples and only positive findings are reported. The test for blood on the chemical analytic portion of urinalysis may also be positive due to hemoglobinuria and myoglobinuria and if red blood cells are present they are quantified by microscopic examination. Result Comment: Fals e positive results may occur in urines with large amounts of hemoglobin, pH greater than 8.0, contrast medium, or disinfectants including ammonium compounds. Performed By: #### 4 [id number] ####[facility] [address] [place] [address] Glenn Gudino M.D. [id number] RBC LM.HPF (Urine sed) [#/Area] 3 /[HPF] Normal 0-3 [facility] Comment on above: Order Comment: Micro scopic examination is performed on all urinalysis samples and only positive findings are reported. The test for blood on the chemical analytic portion of urinalysis may also be positive due to hemoglobinuria and myoglobinuria and if red blood cells are present they are quantified by microscopic examination. Performed By: #### 4 [id number] ####[facility] [address] [place] [address] Glenn Gudino M.D. [id number] Specific gravity (U) [Rel density] 1.027 High 1.005-1.02 5 [facility] Comment on above: Order Comment: Micro scopic examination is performed on all urinalysis samples and only positive findings are reported. The test for blood on the chemical analytic portion of urinalysis may also be positive due to hemoglobinuria and myoglobinuria and if red blood cells are present they are quantified by microscopic examination. Performed By: #### 4 [id number] ####[facility] [address] [place], [place] [address] Glenn Gudino M.D. [id number] SQUAMOUS EPITHELIAL 7 /hpf High 0-4 [facility] Comment on above: Order Comment: Micro scopic examination is performed on all urinalysis samples and only positive findings are reported. The test for blood on the chemical analytic portion of urinalysis may also be positive due to hemoglobinuria and myoglobinuria and if red blood cells are present they are quantified by microscopic examination. Performed By: #### 4 [id number] ####[facility] [address] [place], [place] [address] Glenn Gudino M.D. [id number] UROBILINOGEN, URINE >=4.0 Abnormal <2.0 [facility] Comment on above: Order Comment: Micro scopic examination is performed on all urinalysis samples and only positive findings are reported. The test for blood on the chemical analytic portion of urinalysis may also be positive due to hemoglobinuria and myoglobinuria and if red blood cells are present they are quantified by microscopic examination. Performed By: #### 4 [id number] ####[facility] [address] [place], [place] [address] Glenn Gudino M.D. [id number] WBC LM.HPF (Urine sed) [#/Area] 39 /[HPF] High 0-5 [facility] Comment on above: Order Comment: Micro scopic examination is performed on all urinalysis samples and only positive findings are reported. The test for blood on the chemical analytic portion of urinalysis may also be positive due to hemoglobinuria and myoglobinuria and if red blood cells are present they are quantified by microscopic examination. Performed By: #### 4 [id number] ####[facility] [address] [place], [place] [address] Glenn Gudino M.D. [id number] URINE AEROBIC CULTUREon 09-27 URINE AEROBIC CULTURE URINE CULTURE < 10,000 CFU/mL of normal urogenital microbiota Normal [facility] Comment on above: Performed By: #### 4 4053 ####[facility] [address] [place] [address] Glenn Gudino M.D. [id number] CALCIUM, IONIZEDon CALCIUM IONIZED 4.4 mg/dL Low 4.5-5.3 [facility] Comment on above: Performed By: #### 4 5190 ####[facility] [address] [place], [place] [address] Glenn Gudino M.D. [id number] CBCon 10-17-2023 AUTO NRBC 0.0 % Normal [facility] Comment on above: Performed By: #### 4 [id number] ####[facility] [address] [place], [place] [address] Glenn Gudino M.D. [id number] AUTO NRBC ABS COUNT 0.00 K/mcL Normal 0.00-0.00 [facility] Comment on above: Performed By: #### 4 [id number] ####[facility] [address] [place], [place] [address] Glenn Gudino M.D. [id number] Erythrocyte distribution width (RBC) [Ratio] 17.7 % High 11.6-14.8 [facility] Comment on above: Performed By: #### 4 [id number] ####[facility] [address] [place], [place] [address] Glenn Gudino M.D. [id number] Hematocrit (Bld) [Volume fraction] 28.6 % Low 36.0-46.0 [facility] Comment on above: Performed By: #### 4 [id number] ####[facility] [address] [place], [place] [address] Glenn Gudino M.D. [id number] Hemoglobin (Bld) [Mass/Vol] 8.6 g/dL Low 12.0-16.0 [facility] Comment on above: Performed By: #### 4 [id number] ####[facility] [address] [place], [place] [address] Glenn Gudino M.D. [id number] MCH (RBC) [Entitic mass] 27.3 pg Normal 26.0-34.0 [facility] Comment on above: Performed By: #### 4 [id number] ####[facility] [address] [place] [address] Glenn Gudino M.D. [id number] MCV (RBC) [Entitic vol] 90.8 fL Normal 80.0-100.0 [facility] Comment on above: Performed By: #### 4 [id number] ####[facility] [address] [place] [address] Glenn Gudino M.D. [id number] MEAN CORPUSCULAR HEMOGLOBIN CONC 30.1 g/dL Low 31.0-37.0 [facility] Comment on above: Performed By: #### 4 [id number] ####[facility] [address] [place], [place] [address] Glenn Gudino M.D. [id number] Platelet mean volume (Bld) [Entitic vol] 9.6 fL Normal 9.4-12.4 [facility] Comment on above: Performed By: #### 4 [id number] ####[facility] [address] [place], [place] [address] Glenn Gudino M.D. [id number] Platelets (Bld) [#/Vol] 390 10*3/uL Normal 150-400 [facility] Comment on above: Performed By: #### 4 [id number] ####[facility] [address] [place], [place] [address] Glenn Gudino M.D. [id number] RBC (Bld) [#/Vol] 3.15 10*6/uL Low 4.00-5.20 [facility] Comment on above: Performed By: #### 4 [id number] ####[facility] [address] [place], [place] [address] Glenn Gudino M.D. [id number] WBC (Bld) [#/Vol] 14.44 10*3/uL High 4.50-11.00 [facility] Comment on above: Performed By: #### 4 [id number] ####[facility] [address] [place], [place] [address] Glenn Gudino M.D. [id number] HEPATIC FUNCTION PANELon Albumin [Mass/Vol] 2.2 g/dL Low 3.2-5.2 [facility] Comment on above: Performed By: #### 4 [id number] ####[facility] [address] [place], [place] [address] Glenn Gudino M.D. [id number] ALP [Catalytic activity/Vol] 105 U/L Normal 40-150 [facility] Comment on above: Performed By: #### 4 [id number] ####[facility] [address] [place], [place] [address] Glenn Gudino M.D. [id number] ALT [Catalytic activity/Vol] 23 U/L Normal 0-35 U/L [facility] Comment on above: Performed By: #### 4 [id number] ####[facility] [address] [place], [place] [address] Glenn Gudino M.D. [id number] AST [Catalytic activity/Vol] 52 U/L High 0-35 U/L [facility] Comment on above: Performed By: #### 4 [id number] ####[facility] [address] [place], [place] [address] Glenn Gudino M.D. [id number] Bilirubin [Mass/Vol] 0.6 mg/dL Normal 0.0-1.3 [facility] Comment on above: Performed By: #### 4 [id number] ####[facility] [address] [place], [place] [address] Glenn Gudino M.D. [id number] Bilirubin.indirect [Mass/Vol] 0.2 mg/dL Normal 0.0-0.4 [facility] Comment on above: Performed By: #### 4 [id number] ####[facility] [address] [place] [address] Glenn Gudino M.D. [id number] Protein [Mass/Vol] 6.6 g/dL Normal 6.0-8.0 [facility] Comment on above: Performed By: #### 4 [id number] ####[facility] [address] [place] [address] Glenn Gudino M.D. [id number] MAGNESIUM LEVELon 10-17-2023 Magnesium [Mass/Vol] 2.0 mg/dL Normal 1.6-2.4 [facility] Comment on above: Performed By: #### 4 6109 ####[facility] [address] [place], [place] [address] Glenn Gduino M.D. [id number] PHOSPHORUSon 10-17-2023 Phosphate [Mass/Vol] 3.0 mg/dL Normal 2.8-4.1 [facility] Comment on above: Performed By: #### 4 6299 ####[facility] [address] [place], [place] [address] Glenn Gudino M.D. [id number] PT/INRon 10-17-2023 INR Coag (PPP) [Relative time] 2.9 {INR} High 0.8-1.1 [facility] Comment on above: Order Comment: Jennifer retana the induction phase of oral anticoagulation, the INR may not reflect the anticoagulation status of the patient. Therapeutic ranges for INR's are:Most clinical situations: INR 2.0-3.0Mechanical Prosthetic Valve: INR 2.5-3.5Critical: INR >5.0 Performed By: #### 4 6391 ####[facility] [address] [place] [address] Glenn Gudino M.D. [id number] PT Coag (PPP) [Time] 30.9 s High 11.8-14.3 [facility] Comment on above: Order Comment: Jennifer retana the induction phase of oral anticoagulation, the INR may not reflect the anticoagulation status of the patient. Therapeutic ranges for INR's are:Most clinical situations: INR 2.0-3.0Mechanical Prosthetic Valve: INR 2.5-3.5Critical: INR >5.0 Performed By: #### 4 6391 ####[facility] [address] [place] [address] Glenn Gudino M.D. [id number] URINALYSISon 10-17-2023 BACTERIA, URINE Many Abnormal None Seen [facility] Comment on above: Order Comment: Micro scopic examination is performed on all urinalysis samples and only positive findings are reported. The test for blood on the chemical analytic portion of urinalysis may also be positive due to hemoglobinuria and myoglobinuria and if red blood cells are present they are quantified by microscopic examination. Performed By: #### 4 6625 ####[facility] [address] [place] [address] Glenn Gudino M.D. [id number] BILIRUBIN, URINE Negative Normal Negative [facility] Comment on above: Order Comment: Micro scopic examination is performed on all urinalysis samples and only positive findings are reported. The test for blood on the chemical analytic portion of urinalysis may also be positive due to hemoglobinuria and myoglobinuria and if red blood cells are present they are quantified by microscopic examination. Performed By: #### 4 [id number] ####[facility] [address] [place] [address] Glenn Gudino M.D. [id number] BLOOD, URINE Small Abnormal Negative [facility] Comment on above: Order Comment: Micro scopic examination is performed on all urinalysis samples and only positive findings are reported. The test for blood on the chemical analytic portion of urinalysis may also be positive due to hemoglobinuria and myoglobinuria and if red blood cells are present they are quantified by microscopic examination. Performed By: #### 4 6625 ####[facility] [address] [place] [address] Glenn Gudino M.D. [id number] Clarity (U) Cloudy Abnormal Clear [facility] Comment on above: Order Comment: Micro scopic examination is performed on all urinalysis samples and only positive findings are reported. The test for blood on the chemical analytic portion of urinalysis may also be positive due to hemoglobinuria and myoglobinuria and if red blood cells are present they are quantified by microscopic examination. Performed By: #### 4 6625 ####[facility] [address] [place] [address] Glnen Gudino M.D. [id number] Color (U) Yellow Normal Colorless, Yellow [facility] Comment on above: Order Comment: Micro scopic examination is performed on all urinalysis samples and only positive findings are reported. The test for blood on the chemical analytic portion of urinalysis may also be positive due to hemoglobinuria and myoglobinuria and if red blood cells are present they are quantified by microscopic examination. Performed By: #### 4 [id number] ####[facility] [address] [place] [address] Glenn Gudino M.D. [id number] Glucose Ql (U) Negative Normal Negative [facility] Comment on above: Order Comment: Micro scopic examination is performed on all urinalysis samples and only positive findings are reported. The test for blood on the chemical analytic portion of urinalysis may also be positive due to hemoglobinuria and myoglobinuria and if red blood cells are present they are quantified by microscopic examination. Performed By: #### 4 [id number] ####[facility] [address] [place] [address] Glenn Gudino M.D. [id number] Hyaline casts LM Ql (Urine sed) 0-2 Normal 0-2 [facility] Comment on above: Order Comment: Micro scopic examination is performed on all urinalysis samples and only positive findings are reported. The test for blood on the chemical analytic portion of urinalysis may also be positive due to hemoglobinuria and myoglobinuria and if red blood cells are present they are quantified by microscopic examination. Performed By: #### 4 [id number] ####[facility] [address] [place], [place] [address] Glenn Gudino M.D. [id number] Ketones Ql (U) Negative Normal Negative [facility] Comment on above: Order Comment: Micro scopic examination is performed on all urinalysis samples and only positive findings are reported. The test for blood on the chemical analytic portion of urinalysis may also be positive due to hemoglobinuria and myoglobinuria and if red blood cells are present they are quantified by microscopic examination. Performed By: #### 4 [id number] ####[facility] [address] [place] [address] Glenn Gudino M.D. [id number] Leukocyte esterase Test strip Ql (U) Large Abnormal Negative [facility] Comment on above: Order Comment: Micro scopic examination is performed on all urinalysis samples and only positive findings are reported. The test for blood on the chemical analytic portion of urinalysis may also be positive due to hemoglobinuria and myoglobinuria and if red blood cells are present they are quantified by microscopic examination. Performed By: #### 4 6625 ####[facility] [address] [place] [address] Glenn Gudino M.D. [id number] MUCUS, URINE Rare Normal None Seen, Rare [facility] Comment on above: Order Comment: Micro scopic examination is performed on all urinalysis samples and only positive findings are reported. The test for blood on the chemical analytic portion of urinalysis may also be positive due to hemoglobinuria and myoglobinuria and if red blood cells are present they are quantified by microscopic examination. Performed By: #### 4 6625 ####[facility] [address] [place] [address] Glenn Gudino M.D. [id number] NITRITE, URINE Negative Normal Negative [facility] Comment on above: Order Comment: Micro scopic examination is performed on all urinalysis samples and only positive findings are reported. The test for blood on the chemical analytic portion of urinalysis may also be positive due to hemoglobinuria and myoglobinuria and if red blood cells are present they are quantified by microscopic examination. Performed By: #### 4 [id number] ####[facility] [address] [place] [address] Glenn Gudino M.D. [id number] pH (U) 6.0 [pH] Normal 5.0-7.0 [facility] Comment on above: Order Comment: Micro scopic examination is performed on all urinalysis samples and only positive findings are reported. The test for blood on the chemical analytic portion of urinalysis may also be positive due to hemoglobinuria and myoglobinuria and if red blood cells are present they are quantified by microscopic examination. Performed By: #### 4 [id number] ####[facility] [address] [place] [address] Glenn Gudino M.D. [id number] Protein (U) [Mass/Vol] 30 mg/dL Abnormal Negative [facility] Comment on above: Order Comment: Micro scopic examination is performed on all urinalysis samples and only positive findings are reported. The test for blood on the chemical analytic portion of urinalysis may also be positive due to hemoglobinuria and myoglobinuria and if red blood cells are present they are quantified by microscopic examination. Result Comment: Fals e positive results may occur in urines with large amounts of hemoglobin, pH greater than 8.0, contrast medium, or disinfectants including ammonium compounds. Performed By: #### 4 6625 ####[facility] [address] [place] [address] Glenn Gudino M.D. [id number] RBC LM.HPF (Urine sed) [#/Area] 7 /[HPF] High 0-3 [facility] Comment on above: Order Comment: Micro scopic examination is performed on all urinalysis samples and only positive findings are reported. The test for blood on the chemical analytic portion of urinalysis may also be positive due to hemoglobinuria and myoglobinuria and if red blood cells are present they are quantified by microscopic examination. Performed By: #### 4 6625 ####[facility] [address] [place], [place] [address] Glenn Gudino M.D. [id number] Specific gravity (U) [Rel density] 1.027 High 1.005-1.02 5 [facility] Comment on above: Order Comment: Micro scopic examination is performed on all urinalysis samples and only positive findings are reported. The test for blood on the chemical analytic portion of urinalysis may also be positive due to hemoglobinuria and myoglobinuria and if red blood cells are present they are quantified by microscopic examination. Performed By: #### 4 6625 ####[facility] [address] [place] [address] Glenn Gudino M.D. [id number] SQUAMOUS EPITHELIAL 6 /hpf High 0-4 [facility] Comment on above: Order Comment: Micro scopic examination is performed on all urinalysis samples and only positive findings are reported. The test for blood on the chemical analytic portion of urinalysis may also be positive due to hemoglobinuria and myoglobinuria and if red blood cells are present they are quantified by microscopic examination. Performed By: #### 4 6625 ####[facility] [address] [place] [address] Glenn Gudino M.D. [id number] UROBILINOGEN, URINE <2.0 Normal <2.0 [facility] Comment on above: Order Comment: Micro scopic examination is performed on all urinalysis samples and only positive findings are reported. The test for blood on the chemical analytic portion of urinalysis may also be positive due to hemoglobinuria and myoglobinuria and if red blood cells are present they are quantified by microscopic examination. Performed By: #### 4 [id number] ####[facility] [address] [place] [address] Glenn Gudino M.D. [id number] WBC LM.HPF (Urine sed) [#/Area] 55 /[HPF] High 0-5 [facility] Comment on above: Order Comment: Micro scopic examination is performed on all urinalysis samples and only positive findings are reported. The test for blood on the chemical analytic portion of urinalysis may also be positive due to hemoglobinuria and myoglobinuria and if red blood cells are present they are quantified by microscopic examination. Performed By: #### 4 [id number] ####[facility] [address] [place] [address] Glenn Gudino M.D. [id number] BASIC METABOLIC PANELon 05-2 Anion gap [Moles/Vol] 17 mmol/L Normal 10-20 [facility] Comment on above: Order Comment: [facility] has implemented the eGFR calculation approach that does not have a coefficient for race that conforms to the NKF-ASN Task Force Recommendations. Performed By: #### 4 6124 ####[facility] [address] [place] [address] Glenn Gudino M.D. [id number] Calcium [Mass/Vol] 7.8 mg/dL Low 8.4-10.2 [facility] Comment on above: Order Comment: [facility] has implemented the eGFR calculation approach that does not have a coefficient for race that conforms to the NKF-ASN Task Force Recommendations. Performed By: #### 4 6124 ####[facility] [address] [place] [address] Glenn Gudino M.D. [id number] Chloride [Moles/Vol] 100 mmol/L Normal 98-108 [facility] Comment on above: Order Comment: [facility] has implemented the eGFR calculation approach that does not have a coefficient for race that conforms to the NKF-ASN Task Force Recommendations. Performed By: #### 4 6124 ####[facility] [address] [place] [address] Glenn Gudino M.D. [id number] Creatinine [Mass/Vol] 1.04 mg/dL Normal 0.60-1.10 [facility] Comment on above: Order Comment: [facility] has implemented the eGFR calculation approach that does not have a coefficient for race that conforms to the NKF-ASN Task Force Recommendations. Performed By: #### 4 6124 ####[facility] [address] [place] [address] 27590 Glenn Gudino M.D. [id number] EGFR 61 mL/min/1.73 m2 Normal >=60 [facility] Comment on above: Order Comment: [facility] has implemented the eGFR calculation approach that does not have a coefficient for race that conforms to the NKF-ASN Task Force Recommendations. Result Comment: Joi mated GFR was calculated using the 2020 CKD-EPI creatinine equation. Performed By: #### 4 6124 ####[facility] [address] [place] [address] Glenn Gudino M.D. [id number] Glucose [Mass/Vol] 73 mg/dL Normal 65-99 [facility] Comment on above: Order Comment: [facility] has implemented the eGFR calculation approach that does not have a coefficient for race that conforms to the NKF-ASN Task Force Recommendations. Performed By: #### 4 6124 ####[facility] [address] [place] [address] 228[address] Glenn Gudino M.D. [id number] HCO3 (Bld) [Moles/Vol] 20 mmol/L Low 21-32 [facility] Comment on above: Order Comment: [facility] has implemented the eGFR calculation approach that does not have a coefficient for race that conforms to the NKF-ASN Task Force Recommendations. Performed By: #### 4 6124 ####[facility] [address] [place] [address] Glenn Gudino M.D. [id number] Potassium [Moles/Vol] 3.4 mmol/L Low 3.5-5.1 [facility] Comment on above: Order Comment: [facility] has implemented the eGFR calculation approach that does not have a coefficient for race that conforms to the NKF-ASN Task Force Recommendations. Performed By: #### 4 6124 ####[facility] [address] [place] [address]84[address] Glenn Gudino M.D. [id number] Sodium [Moles/Vol] 134 mmol/L Low 135-145 [facility] Comment on above: Order Comment: [facility] has implemented the eGFR calculation approach that does not have a coefficient for race that conforms to the NKF-ASN Task Force Recommendations. Performed By: #### 4 6124 ####[facility] [address] [place] [address] Glenn Gudino M.D. [id number] Urea nitrogen [Mass/Vol] 21 mg/dL Normal 8-25 [facility] Comment on above: Order Comment: [facility] has implemented the eGFR calculation approach that does not have a coefficient for race that conforms to the NKF-ASN Task Force Recommendations. Performed By: #### 4 6124 ####[facility] [address] [place] [address] 33855 Glenn Gudino M.D. [id number] Urea nitrogen/Creatinine [Mass ratio] 20.2 mg/mg High 10.0-20.0 [facility] Comment on above: Order Comment: [facility] has implemented the eGFR calculation approach that does not have a coefficient for race that conforms to the NKF-ASN Task Force Recommendations. Performed By: #### 4 6124 ####[facility] [address] [place] [address] 49585 Glenn Gudino M.D. [id number] CALCIUM, IONIZEDon CALCIUM IONIZED 4.4 mg/dL Low 4.5-5.3 [facility] Comment on above: Performed By: #### 4 5190 ####[facility] [address] [place] [address] Glenn Gudino M.D. [id number] CBCon 10-16-2023 AUTO NRBC 0.0 % Normal [facility] Comment on above: Performed By: #### 4 [id number] ####[facility] [address] [place] [address] Glenn Gudino M.D. [id number] AUTO NRBC ABS COUNT 0.00 K/mcL Normal 0.00-0.00 [facility] Comment on above: Performed By: #### 4 [id number] ####[facility] [address] [place] [address] Glenn Gudino M.D. [id number] Erythrocyte distribution width (RBC) [Ratio] 17.5 % High 11.6-14.8 [facility] Comment on above: Performed By: #### 4 [id number] ####[facility] [address] [place], [place] [address] Glenn Gudino M.D. [id number] Hematocrit (Bld) [Volume fraction] 25.7 % Low 36.0-46.0 [facility] Comment on above: Performed By: #### 4 [id number] ####[facility] [address] [place], [place] [address] Glenn Gudino M.D. [id number] Hemoglobin (Bld) [Mass/Vol] 8.1 g/dL Low 12.0-16.0 [facility] Comment on above: Performed By: #### 4 [id number] ####[facility] [address] [place] [address] Glenn Gudino M.D. [id number] MCH (RBC) [Entitic mass] 27.7 pg Normal 26.0-34.0 [facility] Comment on above: Performed By: #### 4 [id number] ####[facility] [address] [place] [address] Glenn Gudino M.D. [id number] MCV (RBC) [Entitic vol] 88.0 fL Normal 80.0-100.0 [facility] Comment on above: Performed By: #### 4 [id number] ####[facility] [address] [place] [address] Glenn Gudino M.D. [id number] MEAN CORPUSCULAR HEMOGLOBIN CONC 31.5 g/dL Normal 31.0-37.0 [facility] Comment on above: Performed By: #### 4 [id number] ####[facility] [address] [place] [address] Glenn Gudino M.D. [id number] Platelet mean volume (Bld) [Entitic vol] 9.2 fL Low 9.4-12.4 [facility] Comment on above: Performed By: #### 4 [id number] ####[facility] [address] [place] [address] Glenn Gudino M.D. [id number] Platelets (Bld) [#/Vol] 441 10*3/uL High 150-400 [facility] Comment on above: Performed By: #### 4 [id number] ####[facility] [address] [place] [address] Glenn Gudino M.D. [id number] RBC (Bld) [#/Vol] 2.92 10*6/uL Low 4.00-5.20 [facility] Comment on above: Performed By: #### 4 [id number] ####[facility] [address] [place] [address] Glenn Gudino M.D. [id number] WBC (Bld) [#/Vol] 13.50 10*3/uL High 4.50-11.00 [facility] Comment on above: Performed By: #### 4 [id number] ####[facility] [address] [place] [address] Glenn Gudino M.D. [id number] HEPATIC FUNCTION PANELon Albumin [Mass/Vol] 2.1 g/dL Low 3.2-5.2 [facility] Comment on above: Performed By: #### 4 [id number] ####[facility] [address] [place], [place] [address] Glenn Gudino M.D. [id number] ALP [Catalytic activity/Vol] 104 U/L Normal 40-150 [facility] Comment on above: Performed By: #### 4 [id number] ####[facility] [address] [place], [place] [address] Glenn Gudino M.D. [id number] ALT [Catalytic activity/Vol] 22 U/L Normal 0-35 U/L [facility] Comment on above: Performed By: #### 4 [id number] ####[facility] [address] [place], [place] [address] Glenn Gudino M.D. [id number] AST [Catalytic activity/Vol] 51 U/L High 0-35 U/L [facility] Comment on above: Performed By: #### 4 [id number] ####[facility] [address] [place], [place] [address] Glenn Gudino M.D. [id number] Bilirubin [Mass/Vol] 0.5 mg/dL Normal 0.0-1.3 [facility] Comment on above: Performed By: #### 4 [id number] ####[facility] [address] [place] [address] Glenn Gudino M.D. [id number] Bilirubin.indirect [Mass/Vol] 0.2 mg/dL Normal 0.0-0.4 [facility] Comment on above: Performed By: #### 4 [id number] ####[facility] [address] [place], [place] [address] Glenn Gudino M.D. [id number] Protein [Mass/Vol] 6.3 g/dL Normal 6.0-8.0 [facility] Comment on above: Performed By: #### 4 [id number] ####[facility] [address] [place], [place] [address] Glenn Gudino M.D. [id number] MAGNESIUM LEVELon 10-16-2023 Magnesium [Mass/Vol] 1.9 mg/dL Normal 1.6-2.4 [facility] Comment on above: Performed By: #### 4 6109 ####[facility] [address] [place] [address] Glenn Gudino M.D. [id number] PHOSPHORUSon 10-16-2023 Phosphate [Mass/Vol] 2.4 mg/dL Low 2.8-4.1 [facility] Comment on above: Performed By: #### 4 6299 ####[facility] [address] [place], [place] [address] Glenn Gudino M.D. [id number] PT/INRon 10-16-2023 INR Coag (PPP) [Relative time] 3.1 {INR} High 0.8-1.1 [facility] Comment on above: Order Comment: Jennifer retana the induction phase of oral anticoagulation, the INR may not reflect the anticoagulation status of the patient. Therapeutic ranges for INR's are:Most clinical situations: INR 2.0-3.0Mechanical Prosthetic Valve: INR 2.5-3.5Critical: INR >5.0 Performed By: #### 4 6391 ####[facility] [address] [place] [address] Glenn Gudino M.D. [id number] PT Coag (PPP) [Time] 32.2 s High 11.8-14.3 [facility] Comment on above: Order Comment: Jennifer retana the induction phase of oral anticoagulation, the INR may not reflect the anticoagulation status of the patient. Therapeutic ranges for INR's are:Most clinical situations: INR 2.0-3.0Mechanical Prosthetic Valve: INR 2.5-3.5Critical: INR >5.0 Performed By: #### 4 6391 ####[facility] [address] [place] [address] Glenn Gudino M.D. [id number] CALCIUM, IONIZEDon CALCIUM IONIZED 4.3 mg/dL Low 4.5-5.3 [facility] Comment on above: Performed By: #### 4 5190 ####[facility] [address] [place] [address] Glenn Gudino M.D. [id number] CBCon 10-15-2023 AUTO NRBC 0.0 % Normal [facility] Comment on above: Performed By: #### 4 [id number] ####[facility] [address] [place], [place] [address] Glenn Gudino M.D. [id number] AUTO NRBC ABS COUNT 0.00 K/mcL Normal 0.00-0.00 [facility] Comment on above: Performed By: #### 4 [id number] ####[facility] [address] [place], [place] [address] Glenn uGdino M.D. [id number] Erythrocyte distribution width (RBC) [Ratio] 17.7 % High 11.6-14.8 [facility] Comment on above: Performed By: #### 4 [id number] ####[facility] [address] [place], [place] [address] Glenn Gudino M.D. [id number] Hematocrit (Bld) [Volume fraction] 28.4 % Low 36.0-46.0 [facility] Comment on above: Performed By: #### 4 [id number] ####[facility] [address] [place] [address] Glenn Gudino M.D. [id number] Hemoglobin (Bld) [Mass/Vol] 8.6 g/dL Low 12.0-16.0 [facility] Comment on above: Performed By: #### 4 [id number] ####[facility] [address] [place] [address] Glenn Gudino M.D. [id number] MCH (RBC) [Entitic mass] 27.5 pg Normal 26.0-34.0 [facility] Comment on above: Performed By: #### 4 [id number] ####[facility] [address] [place] [address] Glenn Gudino M.D. [id number] MCV (RBC) [Entitic vol] 90.7 fL Normal 80.0-100.0 [facility] Comment on above: Performed By: #### 4 [id number] ####[facility] [address] [place] [address] Glenn Gudino M.D. [id number] MEAN CORPUSCULAR HEMOGLOBIN CONC 30.3 g/dL Low 31.0-37.0 [facility] Comment on above: Performed By: #### 4 [id number] ####[facility] [address] [place], [place] [address] Glenn Gudino M.D. [id number] Platelet mean volume (Bld) [Entitic vol] 9.8 fL Normal 9.4-12.4 [facility] Comment on above: Performed By: #### 4 [id number] ####[facility] [address] [place], [place] [address] Glenn Gudino M.D. [id number] Platelets (Bld) [#/Vol] 378 10*3/uL Normal 150-400 [facility] Comment on above: Performed By: #### 4 [id number] ####[facility] [address] [place] [address] Glenn Gudino M.D. [id number] RBC (Bld) [#/Vol] 3.13 10*6/uL Low 4.00-5.20 [facility] Comment on above: Performed By: #### 4 [id number] ####[facility] [address] [place] [address] Glenn Gudino M.D. [id number] WBC (Bld) [#/Vol] 12.92 10*3/uL High 4.50-11.00 [facility] Comment on above: Performed By: #### 4 [id number] ####[facility] [address] [place], [place] [address] Glenn Gudino M.D. [id number] HEPATIC FUNCTION PANELon Albumin [Mass/Vol] 2.2 g/dL Low 3.2-5.2 [facility] Comment on above: Performed By: #### 4 5866 ####[facility] [address] [place], [place] [address] Glenn Gudino M.D. [id number] ALP [Catalytic activity/Vol] 100 U/L Normal 40-150 [facility] Comment on above: Performed By: #### 4 5866 ####[facility] [address] [place], [place] [address] Glenn Gudino M.D. [id number] ALT [Catalytic activity/Vol] 28 U/L Normal 0-35 U/L [facility] Comment on above: Performed By: #### 4 5866 ####[facility] [address] [place], [place] [address] Glenn Gudino M.D. [id number] AST [Catalytic activity/Vol] 52 U/L High 0-35 U/L [facility] Comment on above: Performed By: #### 4 5866 ####[facility] [address] [place] [address] Glenn Gudino M.D. [id number] Bilirubin [Mass/Vol] 0.5 mg/dL Normal 0.0-1.3 [facility] Comment on above: Performed By: #### 4 5866 ####[facility] [address] [place] [address] Glenn Gudino M.D. [id number] Bilirubin.indirect [Mass/Vol] 0.2 mg/dL Normal 0.0-0.4 [facility] Comment on above: Performed By: #### 4 5866 ####[facility] [address] [place] [address] Glenn Gudino M.D. [id number] Protein [Mass/Vol] 6.1 g/dL Normal 6.0-8.0 [facility] Comment on above: Performed By: #### 4 5866 ####[facility] [address] [place], [place] [address] Glenn Gudino M.D. [id number] MAGNESIUM LEVELon 10-15-2023 Magnesium [Mass/Vol] 1.8 mg/dL Normal 1.6-2.4 [facility] Comment on above: Performed By: #### 4 6109 ####[facility] [address] [place], [place] [address] Glenn Gudino M.D. [id number] PHOSPHORUSon 10-15-2023 Phosphate [Mass/Vol] 2.8 mg/dL Normal 2.8-4.1 [facility] Comment on above: Performed By: #### 4 6299 ####[facility] [address] [place], [place] [address] Glenn Gudino M.D. [id number] PT/INRon 10-15-2023 INR Coag (PPP) [Relative time] 2.9 {INR} High 0.8-1.1 [facility] Comment on above: Order Comment: Jennifer retana the induction phase of oral anticoagulation, the INR may not reflect the anticoagulation status of the patient. Therapeutic ranges for INR's are:Most clinical situations: INR 2.0-3.0Mechanical Prosthetic Valve: INR 2.5-3.5Critical: INR >5.0 Performed By: #### 4 6391 ####[facility] [address] [place], [place] [address] Glenn Gudino M.D. [id number] PT Coag (PPP) [Time] 30.5 s High 11.8-14.3 [facility] Comment on above: Order Comment: Jennifer retana the induction phase of oral anticoagulation, the INR may not reflect the anticoagulation status of the patient. Therapeutic ranges for INR's are:Most clinical situations: INR 2.0-3.0Mechanical Prosthetic Valve: INR 2.5-3.5Critical: INR >5.0 Performed By: #### 4 6391 ####[facility] [address] [place], [place] [address] Glenn Gudino M.D. [id number] CALCIUM, IONIZEDon CALCIUM IONIZED 4.4 mg/dL Low 4.5-5.3 [facility] Comment on above: Performed By: #### 4 5190 ####[facility] [address] [place], [place] [address] Glenn Gudino M.D. [id number] CBCon 10-14-2023 AUTO NRBC 0.0 % Normal [facility] Comment on above: Performed By: #### 4 [id number] ####[facility] [address] [place], [place] [address] Glenn Gudino M.D. [id number] AUTO NRBC ABS COUNT 0.00 K/mcL Normal 0.00-0.00 [facility] Comment on above: Performed By: #### 4 [id number] ####[facility] [address] [place], [place] [address] Glenn Gudino M.D. [id number] Erythrocyte distribution width (RBC) [Ratio] 17.5 % High 11.6-14.8 [facility] Comment on above: Performed By: #### 4 [id number] ####[facility] [address] [place] [address] Glenn Gudino M.D. [id number] Hematocrit (Bld) [Volume fraction] 26.1 % Low 36.0-46.0 [facility] Comment on above: Performed By: #### 4 [id number] ####[facility] [address] [place] [address] Glenn Gudino M.D. [id number] Hemoglobin (Bld) [Mass/Vol] 8.5 g/dL Low 12.0-16.0 [facility] Comment on above: Performed By: #### 4 [id number] ####[facility] [address] [place], [place] [address] Glenn Gudino M.D. [id number] MCH (RBC) [Entitic mass] 28.0 pg Normal 26.0-34.0 [facility] Comment on above: Performed By: #### 4 [id number] ####[facility] [address] [place], [place] [address] Glenn Gudino M.D. [id number] MCV (RBC) [Entitic vol] 85.9 fL Normal 80.0-100.0 [facility] Comment on above: Performed By: #### 4 5228 ####[facility] [address] [place], [place] [address] Glenn Gudino M.D. [id number] MEAN CORPUSCULAR HEMOGLOBIN CONC 32.6 g/dL Normal 31.0-37.0 [facility] Comment on above: Performed By: #### 4 [id number] ####[facility] [address] [place] [address] Glenn Gudino M.D. [id number] Platelet mean volume (Bld) [Entitic vol] 9.3 fL Low 9.4-12.4 [facility] Comment on above: Performed By: #### 4 [id number] ####[facility] [address] [place], [place] [address] Glenn Gudino M.D. [id number] Platelets (Bld) [#/Vol] 365 10*3/uL Normal 150-400 [facility] Comment on above: Performed By: #### 4 [id number] ####[facility] [address] [place], [place] [address] Glenn Gudino M.D. [id number] RBC (Bld) [#/Vol] 3.04 10*6/uL Low 4.00-5.20 [facility] Comment on above: Performed By: #### 4 [id number] ####[facility] [address] [place], [place] [address] Glenn Gudino M.D. [id number] WBC (Bld) [#/Vol] 15.87 10*3/uL High 4.50-11.00 [facility] Comment on above: Performed By: #### 4 [id number] ####[facility] [address] [place] [address] Glenn Gudino M.D. [id number] CLOSTRIDIOIDES DIFFICILE MENG TINGodamian 10-14-2023 CLOSTRIDIOIDES DIFFICILE TESTING Not detected Normal Not Detected [facility] Comment on above: Performed By: #### 4 8543 ####[facility] [address] [place] [address] Glenn Gudino M.D. [id number] HEPATIC FUNCTION PANELon Albumin [Mass/Vol] 2.4 g/dL Low 3.2-5.2 [facility] Comment on above: Performed By: #### 4 5866 ####[facility] [address] [place], [place] [address] Glenn Gudino M.D. [id number] ALP [Catalytic activity/Vol] 97 U/L Normal 40-150 [facility] Comment on above: Performed By: #### 4 5866 ####[facility] [address] [place] [address] Glenn Gudino M.D. [id number] ALT [Catalytic activity/Vol] 31 U/L Normal 0-35 U/L [facility] Comment on above: Performed By: #### 4 5866 ####[facility] [address] [place], [place] [address] Glenn Gudino M.D. [id number] AST [Catalytic activity/Vol] 56 U/L High 0-35 U/L [facility] Comment on above: Performed By: #### 4 5866 ####[facility] [address] [place], [place] [address] Glenn Gudino M.D. [id number] Bilirubin [Mass/Vol] 0.6 mg/dL Normal 0.0-1.3 [facility] Comment on above: Performed By: #### 4 5866 ####[facility] [address] [place], [place] [address] Glenn Gudino M.D. [id number] Bilirubin.indirect [Mass/Vol] 0.3 mg/dL Normal 0.0-0.4 [facility] Comment on above: Performed By: #### 4 5866 ####[facility] [address] [place], [place] [address] Glenn Gudino M.D. [id number] Protein [Mass/Vol] 6.3 g/dL Normal 6.0-8.0 [facility] Comment on above: Performed By: #### 4 5866 ####[facility] [address] [place] [address] Glenn Gudino M.D. [id number] MAGNESIUM LEVELon 10-14-2023 Magnesium [Mass/Vol] 1.9 mg/dL Normal 1.6-2.4 [facility] Comment on above: Performed By: #### 4 6109 ####[facility] [address] [place] [address] Glenn Gudino M.D. [id number] PHOSPHORUSon 10-14-2023 Phosphate [Mass/Vol] 3.0 mg/dL Normal 2.8-4.1 [facility] Comment on above: Performed By: #### 4 6299 ####[facility] [address] [place] [address] Glenn Gudino M.D. [id number] POC GLUCOSE - [facility] 024 Glucose [Mass/Vol] 105 mg/dL High 65-99 [facility] Comment on above: Performed By: #### 4 2886 ####[facility] [address] [place] [address] [id number] RM[facility] Glucose [Mass/Vol] 98 mg/dL Normal 65-99 [facility] Comment on above: Performed By: #### 4 5505 ####[facility] [address] [place] [address] [id number] [facility] Glucose [Mass/Vol] 82 mg/dL Normal 65-99 [facility] Comment on above: Performed By: #### 4 7908 ####[facility] [address] [place] [address] [id number] RMHPOC Glucose [Mass/Vol] 93 mg/dL Normal 65-99 [facility] Comment on above: Performed By: #### 4 1127 ####[facility] [address] [place] [address] [id number] [facility] Glucose [Mass/Vol] 93 mg/dL Normal 65-99 [facility] Comment on above: Performed By: #### 4 6932 ####[facility] [address] [place] [address] [id number] [facility] PT/INRon 10-14-2023 INR Coag (PPP) [Relative time] 2.6 {INR} High 0.8-1.1 [facility] Comment on above: Order Comment: Jennifer g the induction phase of oral anticoagulation, the INR may not reflect the anticoagulation status of the patient. Therapeutic ranges for INR's are:Most clinical situations: INR 2.0-3.0Mechanical Prosthetic Valve: INR 2.5-3.5Critical: INR >5.0 Performed By: #### 4 6391 ####[facility] [address] [place] [address] Glenn Gudino M.D. [id number] PT Coag (PPP) [Time] 28.0 s High 11.8-14.3 [facility] Comment on above: Order Comment: Jennifer g the induction phase of oral anticoagulation, the INR may not reflect the anticoagulation status of the patient. Therapeutic ranges for INR's are:Most clinical situations: INR 2.0-3.0Mechanical Prosthetic Valve: INR 2.5-3.5Critical: INR >5.0 Performed By: #### 4 6391 ####[facility] [address] [place] [address] Glenn Gudino M.D. [id number] BASIC METABOLIC PANELon 09-26 Anion gap [Moles/Vol] 15 mmol/L Normal 10-20 [facility] Comment on above: Order Comment: [facility] has implemented the eGFR calculation approach that does not have a coefficient for race that conforms to the NKF-ASN Task Force Recommendations. Performed By: #### 4 6124 ####[facility] [address] [place] [address] Glenn Gudino M.D. [id number] Calcium [Mass/Vol] 7.8 mg/dL Low 8.4-10.2 [facility] Comment on above: Order Comment: [facility] has implemented the eGFR calculation approach that does not have a coefficient for race that conforms to the NKF-ASN Task Force Recommendations. Performed By: #### 4 6124 ####[facility] [address] [place] [address] Glenn Gudino M.D. [id number] Chloride [Moles/Vol] 98 mmol/L Normal 98-108 [facility] Comment on above: Order Comment: [facility] has implemented the eGFR calculation approach that does not have a coefficient for race that conforms to the NKF-ASN Task Force Recommendations. Performed By: #### 4 6124 ####[facility] [address] [place] [address] Glenn Gudino M.D. [id number] Creatinine [Mass/Vol] 1.14 mg/dL Normal 0.60-1.10 [facility] Comment on above: Order Comment: [facility] has implemented the eGFR calculation approach that does not have a coefficient for race that conforms to the NKF-ASN Task Force Recommendations. Performed By: #### 4 6124 ####[facility] [address] [place] [address] Glenn Gudino M.D. [id number] EGFR 55 mL/min/1.73 m2 Low >=60 [facility] Comment on above: Order Comment: [facility] has implemented the eGFR calculation approach that does not have a coefficient for race that conforms to the NKF-ASN Task Force Recommendations. Result Comment: Joi mated GFR was calculated using the 2020 CKD-EPI creatinine equation. Performed By: #### 4 6124 ####[facility] [address] [place] [address] Glenn Gudino M.D. [id number] Glucose [Mass/Vol] 83 mg/dL Normal 65-99 [facility] Comment on above: Order Comment: [facility] has implemented the eGFR calculation approach that does not have a coefficient for race that conforms to the NKF-ASN Task Force Recommendations. Performed By: #### 4 6124 ####[facility] [address] [place] [address] Glenn Gudino M.D. [id number] HCO3 (Bld) [Moles/Vol] 25 mmol/L Normal 21-32 [facility] Comment on above: Order Comment: [facility] has implemented the eGFR calculation approach that does not have a coefficient for race that conforms to the NKF-ASN Task Force Recommendations. Performed By: #### 4 6124 ####[facility] [address] [place] [address] Glenn Gudino M.D. [id number] Potassium [Moles/Vol] 3.9 mmol/L Normal 3.5-5.1 [facility] Comment on above: Order Comment: [facility] has implemented the eGFR calculation approach that does not have a coefficient for race that conforms to the NKF-ASN Task Force Recommendations. Performed By: #### 4 6124 ####[facility] [address] [place] [address] Glenn Gudino M.D. [id number] Sodium [Moles/Vol] 134 mmol/L Low 135-145 [facility] Comment on above: Order Comment: [facility] has implemented the eGFR calculation approach that does not have a coefficient for race that conforms to the NKF-ASN Task Force Recommendations. Performed By: #### 4 6124 ####[facility] [address] [place] [address] Glenn Gudino M.D. [id number] Urea nitrogen [Mass/Vol] 28 mg/dL High 8-25 [facility] Comment on above: Order Comment: [facility] has implemented the eGFR calculation approach that does not have a coefficient for race that conforms to the NKF-ASN Task Force Recommendations. Performed By: #### 4 6124 ####[facility] [address] [place] [address] Glenn Gudino M.D. [id number] Urea nitrogen/Creatinine [Mass ratio] 24.6 mg/mg High 10.0-20.0 [facility] Comment on above: Order Comment: [facility] has implemented the eGFR calculation approach that does not have a coefficient for race that conforms to the NKF-ASN Task Force Recommendations. Performed By: #### 4 6124 ####[facility] [address] [place], [place] [address] Glenn Gudino M.D. [id number] CALCIUM, IONIZEDon CALCIUM IONIZED 4.3 mg/dL Low 4.5-5.3 [facility] Comment on above: Performed By: #### 4 5190 ####[facility] [address] [place] [address] Glenn Gudino M.D. [id number] CBCon 10-13-2023 AUTO NRBC 0.0 % Normal [facility] Comment on above: Performed By: #### 4 [id number] ####[facility] [address] [place] [address] 426[address]Karma Gudino M.D. [id number] AUTO NRBC ABS COUNT 0.00 K/mcL Normal 0.00-0.00 [facility] Comment on above: Performed By: #### 4 [id number] ####[facility] [address] [place] [address] Glenn Gudino M.D. [id number] Erythrocyte distribution width (RBC) [Ratio] 17.2 % High 11.6-14.8 [facility] Comment on above: Performed By: #### 4 5218 ####[facility] [address] [place], [place] [address] Glenn Gudino M.D. [id number] Hematocrit (Bld) [Volume fraction] 26.4 % Low 36.0-46.0 [facility] Comment on above: Performed By: #### 4 [id number] ####[facility] [address] [place] [address] Glenn Gudino M.D. [id number] Hemoglobin (Bld) [Mass/Vol] 8.7 g/dL Low 12.0-16.0 [facility] Comment on above: Performed By: #### 4 [id number] ####[facility] [address] [place], [place] [address] Glenn Gudino M.D. [id number] MCH (RBC) [Entitic mass] 27.9 pg Normal 26.0-34.0 [facility] Comment on above: Performed By: #### 4 [id number] ####[facility] [address] [place] [address] Glenn Gudino M.D. [id number] MCV (RBC) [Entitic vol] 84.6 fL Normal 80.0-100.0 [facility] Comment on above: Performed By: #### 4 [id number] ####[facility] [address] [place], [place] [address] Glenn Gudino M.D. [id number] MEAN CORPUSCULAR HEMOGLOBIN CONC 33.0 g/dL Normal 31.0-37.0 [facility] Comment on above: Performed By: #### 4 5218 ####[facility] [address] [place], [place] [address] Glenn Gudino M.D. [id number] Platelet mean volume (Bld) [Entitic vol] 9.6 fL Normal 9.4-12.4 [facility] Comment on above: Performed By: #### 4 [id number] ####[facility] [address] [place], [place] [address] Glenn Gudino M.D. [id number] Platelets (Bld) [#/Vol] 362 10*3/uL Normal 150-400 [facility] Comment on above: Performed By: #### 4 [id number] ####[facility] [address] [place] [address] Glenn Gudino M.D. [id number] RBC (Bld) [#/Vol] 3.12 10*6/uL Low 4.00-5.20 [facility] Comment on above: Performed By: #### 4 5218 ####[facility] [address] [place], [place] [address] Glenn Gudino M.D. [id number] WBC (Bld) [#/Vol] 15.99 10*3/uL High 4.50-11.00 [facility] Comment on above: Performed By: #### 4 5218 ####[facility] [address] [place], [place] [address] Glenn Gudino M.D. [id number] CORTISOL, Víctor 10-13-2023 CORTISOL - AM 24.1 mcg/dL Normal 5.0-25.0 [facility] Comment on above: Order Comment: Needs to be drawn at 8 am Performed By: #### 4 6853 ####[facility] [address] [place], [place] [address] Glenn Gudino M.D. [id number] HEPATIC FUNCTION PANELon Albumin [Mass/Vol] 2.4 g/dL Low 3.2-5.2 [facility] Comment on above: Performed By: #### 4 5866 ####[facility] [address] [place], [place] [address] Glenn Gudino M.D. [id number] ALP [Catalytic activity/Vol] 85 U/L Normal 40-150 [facility] Comment on above: Performed By: #### 4 5866 ####[facility] [address] [place], [place] [address] Glenn Gudino M.D. [id number] ALT [Catalytic activity/Vol] 27 U/L Normal 0-35 U/L [facility] Comment on above: Performed By: #### 4 5866 ####[facility] [address] [place] [address] Glenn Gudino M.D. [id number] AST [Catalytic activity/Vol] 49 U/L High 0-35 U/L [facility] Comment on above: Performed By: #### 4 5866 ####[facility] [address] [place], [place] [address] Glenn Gudino M.D. [id number] Bilirubin [Mass/Vol] 0.5 mg/dL Normal 0.0-1.3 [facility] Comment on above: Performed By: #### 4 5866 ####[facility] [address] [place], [place] [address] Glenn Gudino M.D. [id number] Bilirubin.indirect [Mass/Vol] 0.2 mg/dL Normal 0.0-0.4 [facility] Comment on above: Performed By: #### 4 5866 ####[facility] [address] [place], [place] [address] Glenn Gudino M.D. [id number] Protein [Mass/Vol] 6.4 g/dL Normal 6.0-8.0 [facility] Comment on above: Performed By: #### 4 5866 ####[facility] [address] [place], [place] [address] Glenn Gudino M.D. [id number] MAGNESIUM LEVELon 10-13-2023 Magnesium [Mass/Vol] 1.8 mg/dL Normal 1.6-2.4 [facility] Comment on above: Performed By: #### 4 6109 ####[facility] [address] [place] [address] Glenn Gudino M.D. [id number] PHOSPHORUSon 10-13-2023 Phosphate [Mass/Vol] 2.3 mg/dL Low 2.8-4.1 [facility] Comment on above: Performed By: #### 4 6299 ####[facility] [address] [place] [address] Glenn Gudino M.D. [id number] POC GLUCOSE - [facility] 024 Glucose [Mass/Vol] 92 mg/dL Normal 65-99 [facility] Comment on above: Performed By: #### 4 6971 ####[facility] [address] [place] [address] [id number] [facility] Glucose [Mass/Vol] 98 mg/dL Normal 65-99 [facility] Comment on above: Performed By: #### 4 3950 ####[facility] [address] [place] [address] [id number] [facility] Glucose [Mass/Vol] 105 mg/dL High 65-99 [facility] Comment on above: Performed By: #### 4 3423 ####[facility] [address] [place] [address] [id number] [facility] Glucose [Mass/Vol] 107 mg/dL High 65-99 [facility] Comment on above: Performed By: #### 4 8727 ####[facility] [address] [place] [address] [id number] [facility] Glucose [Mass/Vol] 95 mg/dL Normal 65-99 [facility] Comment on above: Performed By: #### 4 1012 ####[facility] [address] [place] [address] [id number] [facility] Glucose [Mass/Vol] 99 mg/dL Normal 65-99 [facility] Comment on above: Performed By: #### 4 4475 ####[facility] [address] [place] [address] [id number] [facility] PT/INRon 10-13-2023 INR Coag (PPP) [Relative time] 1.9 {INR} High 0.8-1.1 [facility] Comment on above: Order Comment: Jennifer g the induction phase of oral anticoagulation, the INR may not reflect the anticoagulation status of the patient. Therapeutic ranges for INR's are:Most clinical situations: INR 2.0-3.0Mechanical Prosthetic Valve: INR 2.5-3.5Critical: INR >5.0 Performed By: #### 4 6391 ####[facility] [address] [place] [address] Glenn Gudino M.D. [id number] PT Coag (PPP) [Time] 22.3 s High 11.8-14.3 [facility] Comment on above: Order Comment: Jennifer g the induction phase of oral anticoagulation, the INR may not reflect the anticoagulation status of the patient. Therapeutic ranges for INR's are:Most clinical situations: INR 2.0-3.0Mechanical Prosthetic Valve: INR 2.5-3.5Critical: INR >5.0 Result Comment: Resu lts checked. Performed By: #### 4 6391 ####[facility] [address] [place] [address] Glenn Gudino M.D. [id number] BASIC METABOLIC PANELon 09-26 Anion gap [Moles/Vol] 18 mmol/L Normal 10-20 [facility] Comment on above: Order Comment: [facility] has implemented the eGFR calculation approach that does not have a coefficient for race that conforms to the NKF-ASN Task Force Recommendations. Performed By: #### 4 6124 ####[facility] [address] [place] [address] Glenn Gudino M.D. [id number] Calcium [Mass/Vol] 7.7 mg/dL Low 8.4-10.2 [facility] Comment on above: Order Comment: [facility] has implemented the eGFR calculation approach that does not have a coefficient for race that conforms to the NKF-ASN Task Force Recommendations. Performed By: #### 4 6124 ####[facility] [address] [place] [address] Glenn Gudino M.D. [id number] Chloride [Moles/Vol] 98 mmol/L Normal 98-108 [facility] Comment on above: Order Comment: [facility] has implemented the eGFR calculation approach that does not have a coefficient for race that conforms to the NKF-ASN Task Force Recommendations. Performed By: #### 4 6124 ####[facility] [address] [place] [address] Glenn Gudino M.D. [id number] Creatinine [Mass/Vol] 1.35 mg/dL High 0.60-1.10 [facility] Comment on above: Order Comment: [facility] has implemented the eGFR calculation approach that does not have a coefficient for race that conforms to the NKF-ASN Task Force Recommendations. Performed By: #### 4 6124 ####[facility] [address] [place] [address] Glenn Gudino M.D. [id number] EGFR 45 mL/min/1.73 m2 Low >=60 [facility] Comment on above: Order Comment: [facility] has implemented the eGFR calculation approach that does not have a coefficient for race that conforms to the NKF-ASN Task Force Recommendations. Result Comment: Joi mated GFR was calculated using the 2020 CKD-EPI creatinine equation. Performed By: #### 4 6124 ####[facility] [address] [place] [address] Glenn Gudino M.D. [id number] Glucose [Mass/Vol] 202 mg/dL High 65-99 [facility] Comment on above: Order Comment: [facility] has implemented the eGFR calculation approach that does not have a coefficient for race that conforms to the NKF-ASN Task Force Recommendations. Performed By: #### 4 6124 ####[facility] [address] [place] [address] Glenn Gudino M.D. [id number] HCO3 (Bld) [Moles/Vol] 21 mmol/L Normal 21-32 [facility] Comment on above: Order Comment: [facility] has implemented the eGFR calculation approach that does not have a coefficient for race that conforms to the NKF-ASN Task Force Recommendations. Performed By: #### 4 6124 ####[facility] [address] [place] [address] Glenn Gudino M.D. [id number] Potassium [Moles/Vol] 3.9 mmol/L Normal 3.5-5.1 [facility] Comment on above: Order Comment: [facility] has implemented the eGFR calculation approach that does not have a coefficient for race that conforms to the NKF-ASN Task Force Recommendations. Performed By: #### 4 6124 ####[facility] [address] [place] [address] 228[address] Glenn Gudino M.D. [id number] Sodium [Moles/Vol] 133 mmol/L Low 135-145 [facility] Comment on above: Order Comment: [facility] has implemented the eGFR calculation approach that does not have a coefficient for race that conforms to the NKF-ASN Task Force Recommendations. Performed By: #### 4 6124 ####[facility] [address] [place] [address] Glenn Gudino M.D. [id number] Urea nitrogen [Mass/Vol] 33 mg/dL High 8-25 [facility] Comment on above: Order Comment: [facility] has implemented the eGFR calculation approach that does not have a coefficient for race that conforms to the NKF-ASN Task Force Recommendations. Performed By: #### 4 6124 ####[facility] [address] [place] [address] Glenn Gudino M.D. [id number] Urea nitrogen/Creatinine [Mass ratio] 24.4 mg/mg High 10.0-20.0 [facility] Comment on above: Order Comment: [facility] has implemented the eGFR calculation approach that does not have a coefficient for race that conforms to the NKF-ASN Task Force Recommendations. Performed By: #### 4 6124 ####[facility] [address] [place], [place] [address] Glenn Gudino M.D. [id number] Anion gap [Moles/Vol] 14 mmol/L Normal 10-20 [facility] Comment on above: Order Comment: [facility] has implemented the eGFR calculation approach that does not have a coefficient for race that conforms to the NKF-ASN Task Force Recommendations. Performed By: #### 4 6124 ####[facility] [address] [place], [place] [address] Glenn Gudino M.D. [id number] Calcium [Mass/Vol] 8.0 mg/dL Low 8.4-10.2 [facility] Comment on above: Order Comment: [facility] has implemented the eGFR calculation approach that does not have a coefficient for race that conforms to the NKF-ASN Task Force Recommendations. Performed By: #### 4 6124 ####[facility] [address] [place], [place] [address] Glenn Gudino M.D. [id number] Chloride [Moles/Vol] 100 mmol/L Normal 98-108 [facility] Comment on above: Order Comment: [facility] has implemented the eGFR calculation approach that does not have a coefficient for race that conforms to the NKF-ASN Task Force Recommendations. Performed By: #### 4 6124 ####[facility] [address] [place] [address] Glenn Gudino M.D. [id number] Creatinine [Mass/Vol] 1.24 mg/dL High 0.60-1.10 [facility] Comment on above: Order Comment: [facility] has implemented the eGFR calculation approach that does not have a coefficient for race that conforms to the NKF-ASN Task Force Recommendations. Performed By: #### 4 6124 ####[facility] [address] [place] [address] Glenn Gudino M.D. [id number] EGFR 50 mL/min/1.73 m2 Low >=60 [facility] Comment on above: Order Comment: [facility] has implemented the eGFR calculation approach that does not have a coefficient for race that conforms to the NKF-ASN Task Force Recommendations. Result Comment: Joi mated GFR was calculated using the 2020 CKD-EPI creatinine equation. Performed By: #### 4 6124 ####[facility] [address] [place], [place] [address] Glenn Gudino M.D. [id number] Glucose [Mass/Vol] 84 mg/dL Normal 65-99 [facility] Comment on above: Order Comment: [facility] has implemented the eGFR calculation approach that does not have a coefficient for race that conforms to the NKF-ASN Task Force Recommendations. Performed By: #### 4 6124 ####[facility] [address] [place] [address] 56273 Glenn Gudino M.D. [id number] HCO3 (Bld) [Moles/Vol] 25 mmol/L Normal 21-32 [facility] Comment on above: Order Comment: [facility] has implemented the eGFR calculation approach that does not have a coefficient for race that conforms to the NKF-ASN Task Force Recommendations. Performed By: #### 4 6195 ####[facility] [address] [place], [place] [address] Glenn Gudino M.D. [id number] Potassium [Moles/Vol] 4.1 mmol/L Normal 3.5-5.1 [facility] Comment on above: Order Comment: [facility] has implemented the eGFR calculation approach that does not have a coefficient for race that conforms to the NKF-ASN Task Force Recommendations. Performed By: #### 4 6124 ####[facility] [address] [place], [place] [address] Glenn Gudino M.D. [id number] Sodium [Moles/Vol] 135 mmol/L Normal 135-145 [facility] Comment on above: Order Comment: [facility] has implemented the eGFR calculation approach that does not have a coefficient for race that conforms to the NKF-ASN Task Force Recommendations. Performed By: #### 4 6124 ####[facility] [address] [place], [place] [address] Glenn Gudino M.D. [id number] Urea nitrogen [Mass/Vol] 33 mg/dL High 8-25 [facility] Comment on above: Order Comment: [facility] has implemented the eGFR calculation approach that does not have a coefficient for race that conforms to the NKF-ASN Task Force Recommendations. Performed By: #### 4 6124 ####[facility] [address] [place] [address]4534 Glenn Gudino M.D. [id number] Urea nitrogen/Creatinine [Mass ratio] 26.6 mg/mg High 10.0-20.0 [facility] Comment on above: Order Comment: [facility] has implemented the eGFR calculation approach that does not have a coefficient for race that conforms to the NKF-ASN Task Force Recommendations. Performed By: #### 4 6124 ####[facility] [address] [place] [address] 35644 Glenn Gudino M.D. [id number] CALCIUM, IONIZEDon 4 CALCIUM IONIZED 4.5 mg/dL Normal 4.5-5.3 [facility] Comment on above: Performed By: #### 4 5190 ####[facility] [address] [place] [address] 83148 Glenn Gudino M.D. [id number] CBCon 10-12-2023 AUTO NRBC 0.0 % Normal [facility] Comment on above: Performed By: #### 4 5218 ####[facility] [address] [place] [address] Glenn Gudino M.D. [id number] AUTO NRBC ABS COUNT 0.00 K/mcL Normal 0.00-0.00 [facility] Comment on above: Performed By: #### 4 5218 ####[facility] [address] [place] [address] Glenn Gudino M.D. [id number] Erythrocyte distribution width (RBC) [Ratio] 17.1 % High 11.6-14.8 [facility] Comment on above: Performed By: #### 4 5218 ####[facility] [address] [place] [address] Glenn Gudino M.D. [id number] Hematocrit (Bld) [Volume fraction] 25.6 % Low 36.0-46.0 [facility] Comment on above: Performed By: #### 4 5218 ####[facility] [address] [place], [place] [address]Karma Gudino M.D. [id number] Hemoglobin (Bld) [Mass/Vol] 8.2 g/dL Low 12.0-16.0 [facility] Comment on above: Performed By: #### 4 5218 ####[facility] [address] [place], [place] [address] Glenn Gudino M.D. [id number] MCH (RBC) [Entitic mass] 27.2 pg Normal 26.0-34.0 [facility] Comment on above: Performed By: #### 4 5218 ####[facility] [address] [place], [place] [address]Karma Gudino M.D. [id number] MCV (RBC) [Entitic vol] 84.8 fL Normal 80.0-100.0 [facility] Comment on above: Performed By: #### 4 5218 ####[facility] [address] [place], [place] [address] Glenn Gudino M.D. [id number] MEAN CORPUSCULAR HEMOGLOBIN CONC 32.0 g/dL Normal 31.0-37.0 [facility] Comment on above: Performed By: #### 4 5218 ####[facility] [address] [place], [place] [address] Glenn Gudino M.D. [id number] Platelet mean volume (Bld) [Entitic vol] 9.2 fL Low 9.4-12.4 [facility] Comment on above: Performed By: #### 4 5218 ####[facility] [address] [place], [place] [address] Glenn Gudino M.D. [id number] Platelets (Bld) [#/Vol] 286 10*3/uL Normal 150-400 [facility] Comment on above: Performed By: #### 4 5218 ####[facility] [address] [place], [place] [address] Glenn Gudino M.D. [id number] RBC (Bld) [#/Vol] 3.02 10*6/uL Low 4.00-5.20 [facility] Comment on above: Performed By: #### 4 5218 ####[facility] [address] [place] [address] 29821 Glenn Gudino M.D. [id number] WBC (Bld) [#/Vol] 14.32 10*3/uL High 4.50-11.00 [facility] Comment on above: Performed By: #### 4 5218 ####[facility] [address] [place], [place] [address] Glenn Gudino M.D. [id number] CONSULTon 10-12-2023 CONSULT Normal [facility] CONSULT Normal [facility] HEMOGLOBIN A1Con 10-12-2023 Glucose [Mass/Vol] 111 mg/dL Normal 74-114 [facility] Comment on above: Order Comment: Irina l: 4.2% - 5.6%Increased risk for diabetes: 5.7% - 6.4%Diabetes: >= 6.5%Pediatrics: No established reference rangeEstimated average glucose: 74-114 mg/dL Performed By: #### 4 8202 ####[facility] [address] [place], [place] [address] Glenn Gudino M.D. [id number] HbA1c (Bld) [Mass fraction] 5.5 % Normal 4.2-5.6 [facility] Comment on above: Order Comment: Irina l: 4.2% - 5.6%Increased risk for diabetes: 5.7% - 6.4%Diabetes: >= 6.5%Pediatrics: No established reference rangeEstimated average glucose: 74-114 mg/dL Performed By: #### 4 8202 ####[facility] [address] [place], [place] [address] Glenn Gudino M.D. [id number] HEPATIC FUNCTION PANELon Albumin [Mass/Vol] 2.5 g/dL Low 3.2-5.2 [facility] Comment on above: Performed By: #### 4 5866 ####[facility] [address] [place] [address] 98201 Glenn Gudino M.D. [id number] ALP [Catalytic activity/Vol] 75 U/L Normal 40-150 [facility] Comment on above: Performed By: #### 4 5866 ####[facility] [address] [place], [place] [address] Glenn Gudino M.D. [id number] ALT [Catalytic activity/Vol] 27 U/L Normal 0-35 U/L [facility] Comment on above: Performed By: #### 4 5866 ####[facility] [address] [place], [place] [address] Glenn Gudino M.D. [id number] AST [Catalytic activity/Vol] 45 U/L High 0-35 U/L [facility] Comment on above: Performed By: #### 4 5866 ####[facility] [address] [place] [address] Glenn Gudino M.D. [id number] Bilirubin [Mass/Vol] 0.5 mg/dL Normal 0.0-1.3 [facility] Comment on above: Performed By: #### 4 5866 ####[facility] [address] [place] [address] Glenn Gudino M.D. [id number] Bilirubin.indirect [Mass/Vol] 0.2 mg/dL Normal 0.0-0.4 [facility] Comment on above: Performed By: #### 4 5866 ####[facility] [address] [place], [place] [address] Glenn Gudino M.D. [id number] Protein [Mass/Vol] 6.2 g/dL Normal 6.0-8.0 [facility] Comment on above: Performed By: #### 4 5866 ####[facility] [address] [place], [place] [address] Glenn Gudino M.D. [id number] MAGNESIUM LEVELon 10-12-2023 Magnesium [Mass/Vol] 1.9 mg/dL Normal 1.6-2.4 [facility] Comment on above: Performed By: #### 4 6109 ####[facility] [address] [place], [place] [address] Glenn Gudino M.D. [id number] PHOSPHORUSon 10-12-2023 Phosphate [Mass/Vol] 2.0 mg/dL Low 2.8-4.1 [facility] Comment on above: Performed By: #### 4 6299 ####[facility] [address] [place] [address] Glenn Gudino M.D. [id number] Phosphate [Mass/Vol] 2.1 mg/dL Low 2.8-4.1 [facility] Comment on above: Performed By: #### 4 6299 ####[facility] [address] [place] [address] Glenn Gudino M.D. [id number] POC GLUCOSE - [facility] 024 Glucose [Mass/Vol] 81 mg/dL Normal 65-99 [facility] Comment on above: Performed By: #### 4 6932 ####[facility] [address] [place] [address] [id number] [facility] Glucose [Mass/Vol] 43 mg/dL Low 65-99 [facility] Comment on above: Performed By: #### 4 6932 ####[facility] [address] [place] [address] [id number] [facility] Glucose [Mass/Vol] 46 mg/dL Low 65-99 [facility] Comment on above: Performed By: #### 4 6922 ####[facility] [address] [place] [address] [id number] [facility] Glucose [Mass/Vol] 34 mg/dL Off scale low 65-99 [facility] Comment on above: Order Comment: Criti cherrie result acted upon time of test. Test performed at bedside. Performed By: #### 4 8945 ####[facility] [address] [place] [address] [id number] [facility] Glucose [Mass/Vol] 32 mg/dL Off scale low 65-99 [facility] Comment on above: Order Comment: Criti cherrie result acted upon time of test. Test performed at bedside. Performed By: #### 4 2109 ####[facility] [address] [place] [address] [id number] [facility] Glucose [Mass/Vol] 25 mg/dL Off scale low 65-99 [facility] Comment on above: Order Comment: Criti cherrie result acted upon time of test. Test performed at bedside. Performed By: #### 4 6926 ####[facility] [address] [place] [address] [id number] [facility] Glucose [Mass/Vol] 34 mg/dL Off scale low 65-99 [facility] Comment on above: Order Comment: Criti cherrie result acted upon time of test. Test performed at bedside. Performed By: #### 4 6580 ####[facility] [address] [place] [address] [id number] [facility] Glucose [Mass/Vol] 29 mg/dL Off scale low 65-99 [facility] Comment on above: Order Comment: Criti cherrie result acted upon time of test. Test performed at bedside. Performed By: #### 4 8966 ####[facility] [address] [place] [address] [id number] [facility] Glucose [Mass/Vol] 105 mg/dL High 65-99 [facility] Comment on above: Performed By: #### 4 3874 ####[facility] [address] [place] [address] [id number] [facility] Glucose [Mass/Vol] 105 mg/dL High 65-99 [facility] Comment on above: Performed By: #### 4 8974 ####[facility] [address] [place] [address] [id number] [facility] Glucose [Mass/Vol] 99 mg/dL Normal 65-99 [facility] Comment on above: Performed By: #### 4 1836 ####[facility] [address] [place] [address] [id number] [facility] Glucose [Mass/Vol] 97 mg/dL Normal 65-99 [facility] Comment on above: Performed By: #### 4 3383 ####[facility] [address] [place] [address] 41943 [id number] [facility] Glucose [Mass/Vol] 101 mg/dL High 65-99 [facility] Comment on above: Performed By: #### 4 6932 ####[facility] [address] [place] [address] 9[address] [id number] [facility] Glucose [Mass/Vol] 131 mg/dL High 65-99 [facility] Comment on above: Performed By: #### 4 6932 ####[facility] [address] [place] [address] [id number] [facility] PT/INRon 10-12-2023 INR Coag (PPP) [Relative time] 1.4 {INR} High 0.8-1.1 [facility] Comment on above: Order Comment: Jennifer retana the induction phase of oral anticoagulation, the INR may not reflect the anticoagulation status of the patient. Therapeutic ranges for INR's are:Most clinical situations: INR 2.0-3.0Mechanical Prosthetic Valve: INR 2.5-3.5Critical: INR >5.0 Performed By: #### 4 6391 ####[facility] [address] [place], [place] [address] Glenn Gudino M.D. [id number] PT Coag (PPP) [Time] 16.9 s High 11.8-14.3 [facility] Comment on above: Order Comment: Jennifer retana the induction phase of oral anticoagulation, the INR may not reflect the anticoagulation status of the patient. Therapeutic ranges for INR's are:Most clinical situations: INR 2.0-3.0Mechanical Prosthetic Valve: INR 2.5-3.5Critical: INR >5.0 Performed By: #### 4 6391 ####[facility] [address] [place], [place] [address] Glenn Gudino M.D. [id number] BASIC METABOLIC PANELon 09-26 Anion gap [Moles/Vol] 17 mmol/L Normal 10-20 [facility] Comment on above: Order Comment: [facility] has implemented the eGFR calculation approach that does not have a coefficient for race that conforms to the NKF-ASN Task Force Recommendations. Performed By: #### 4 6124 ####[facility] [address] [place] [address]3066 Glenn Gudino M.D. [id number] Calcium [Mass/Vol] 7.8 mg/dL Low 8.4-10.2 [facility] Comment on above: Order Comment: [facility] has implemented the eGFR calculation approach that does not have a coefficient for race that conforms to the NKF-ASN Task Force Recommendations. Performed By: #### 4 6124 ####[facility] [address] [place], [place] [address] Glenn Gudino M.D. [id number] Chloride [Moles/Vol] 102 mmol/L Normal 98-108 [facility] Comment on above: Order Comment: [facility] has implemented the eGFR calculation approach that does not have a coefficient for race that conforms to the NKF-ASN Task Force Recommendations. Performed By: #### 4 6124 ####[facility] [address] [place] [address] 49451 Glenn Gudino M.D. [id number] Creatinine [Mass/Vol] 1.37 mg/dL High 0.60-1.10 [facility] Comment on above: Order Comment: [facility] has implemented the eGFR calculation approach that does not have a coefficient for race that conforms to the NKF-ASN Task Force Recommendations. Performed By: #### 4 6124 ####[facility] [address] [place] [address] 12851 Glenn Gudino M.D. [id number] EGFR 44 mL/min/1.73 m2 Low >=60 [facility] Comment on above: Order Comment: [facility] has implemented the eGFR calculation approach that does not have a coefficient for race that conforms to the NKF-ASN Task Force Recommendations. Result Comment: Joi mated GFR was calculated using the 2020 CKD-EPI creatinine equation. Performed By: #### 4 6124 ####[facility] [address] [place] [address] 28285 Glenn Gudino M.D. [id number] Glucose [Mass/Vol] 116 mg/dL High 65-99 [facility] Comment on above: Order Comment: [facility] has implemented the eGFR calculation approach that does not have a coefficient for race that conforms to the NKF-ASN Task Force Recommendations. Performed By: #### 4 6124 ####[facility] [address] [place] [address] 21995 Glenn Gudino M.D. [id number] HCO3 (Bld) [Moles/Vol] 22 mmol/L Normal 21-32 [facility] Comment on above: Order Comment: [facility] has implemented the eGFR calculation approach that does not have a coefficient for race that conforms to the NKF-ASN Task Force Recommendations. Performed By: #### 4 6124 ####[facility] [address] [place] [address] 36722 Glenn Gudino M.D. [id number] Potassium [Moles/Vol] 3.9 mmol/L Normal 3.5-5.1 [facility] Comment on above: Order Comment: [facility] has implemented the eGFR calculation approach that does not have a coefficient for race that conforms to the NKF-ASN Task Force Recommendations. Performed By: #### 4 6124 ####[facility] [address] [place] [address] 28609 Glenn Gudino M.D. [id number] Sodium [Moles/Vol] 137 mmol/L Normal 135-145 [facility] Comment on above: Order Comment: [facility] has implemented the eGFR calculation approach that does not have a coefficient for race that conforms to the NKF-ASN Task Force Recommendations. Performed By: #### 4 6177 ####[facility] [address] [place] [address] 93376 Glenn Gudino M.D. [id number] Urea nitrogen [Mass/Vol] 39 mg/dL High 8-25 [facility] Comment on above: Order Comment: [facility] has implemented the eGFR calculation approach that does not have a coefficient for race that conforms to the NKF-ASN Task Force Recommendations. Performed By: #### 4 6124 ####[facility] [address] [place], [place] [address] Glenn Gudino M.D. [id number] Urea nitrogen/Creatinine [Mass ratio] 28.5 mg/mg High 10.0-20.0 [facility] Comment on above: Order Comment: [facility] has implemented the eGFR calculation approach that does not have a coefficient for race that conforms to the NKF-ASN Task Force Recommendations. Performed By: #### 4 6124 ####[facility] [address] [place], [place] [address] Glenn Gudino M.D. [id number] CALCIUM, IONIZEDon CALCIUM IONIZED 4.5 mg/dL Normal 4.5-5.3 [facility] Comment on above: Performed By: #### 4 5190 ####[facility] [address] [place] [address] 11616 Glenn Gudino M.D. [id number] CBCon 10-11-2023 AUTO NRBC 0.0 % Normal [facility] Comment on above: Performed By: #### 4 [id number] ####[facility] [address] [place] [address] 56534 Glenn Gudino M.D. [id number] AUTO NRBC ABS COUNT 0.00 K/mcL Normal 0.00-0.00 [facility] Comment on above: Performed By: #### 4 [id number] ####[facility] [address] [place], [place] [address] Glenn Gudino M.D. [id number] Erythrocyte distribution width (RBC) [Ratio] 16.4 % High 11.6-14.8 [facility] Comment on above: Performed By: #### 4 [id number] ####[facility] [address] [place], [place] [address] Glenn Gudino M.D. [id number] Hematocrit (Bld) [Volume fraction] 23.0 % Low 36.0-46.0 [facility] Comment on above: Performed By: #### 4 [id number] ####[facility] [address] [place] [address] Glenn Gudino M.D. [id number] Hemoglobin (Bld) [Mass/Vol] 7.8 g/dL Low 12.0-16.0 [facility] Comment on above: Performed By: #### 4 [id number] ####[facility] [address] [place] [address] Glenn Gudino M.D. [id number] MCH (RBC) [Entitic mass] 27.7 pg Normal 26.0-34.0 [facility] Comment on above: Performed By: #### 4 [id number] ####[facility] [address] [place], [place] [address] Glenn Gudino M.D. [id number] MCV (RBC) [Entitic vol] 81.6 fL Normal 80.0-100.0 [facility] Comment on above: Performed By: #### 4 [id number] ####[facility] [address] [place], [place] [address] Glenn Gudino M.D. [id number] MEAN CORPUSCULAR HEMOGLOBIN CONC 33.9 g/dL Normal 31.0-37.0 [facility] Comment on above: Performed By: #### 4 [id number] ####[facility] [address] [place] [address] Glenn Gudino M.D. [id number] Platelet mean volume (Bld) [Entitic vol] 9.6 fL Normal 9.4-12.4 [facility] Comment on above: Performed By: #### 4 [id number] ####[facility] [address] [place] [address] 20650 Glenn Gudino M.D. [id number] Platelets (Bld) [#/Vol] 270 10*3/uL Normal 150-400 [facility] Comment on above: Performed By: #### 4 [id number] ####[facility] [address] [place] [address] 11206 Glenn Gudino M.D. [id number] RBC (Bld) [#/Vol] 2.82 10*6/uL Low 4.00-5.20 [facility] Comment on above: Performed By: #### 4 [id number] ####[facility] [address] [place], [place] [address] Glenn Gudino M.D. [id number] WBC (Bld) [#/Vol] 16.66 10*3/uL High 4.50-11.00 [facility] Comment on above: Performed By: #### 4 [id number] ####[facility] [address] [place] [address] 62020 Glenn Gudino M.D. [id number] HEPATIC FUNCTION PANELon Albumin [Mass/Vol] 2.3 g/dL Low 3.2-5.2 [facility] Comment on above: Performed By: #### 4 5866 ####[facility] [address] [place] [address] 22267 Glenn Gudino M.D. [id number] ALP [Catalytic activity/Vol] 62 U/L Normal 40-150 [facility] Comment on above: Performed By: #### 4 5866 ####[facility] [address] [place], [place] [address] Glenn Gudino M.D. [id number] ALT [Catalytic activity/Vol] 31 U/L Normal 0-35 U/L [facility] Comment on above: Performed By: #### 4 5866 ####[facility] [address] [place], [place] [address] Glenn Gudino M.D. [id number] AST [Catalytic activity/Vol] 51 U/L High 0-35 U/L [facility] Comment on above: Performed By: #### 4 5866 ####[facility] [address] [place], [place] [address] Glenn Gudino M.D. [id number] Bilirubin [Mass/Vol] 0.4 mg/dL Normal 0.0-1.3 [facility] Comment on above: Performed By: #### 4 5866 ####[facility] [address] [place], [place] [address] Glenn Gudino M.D. [id number] Bilirubin.indirect [Mass/Vol] 0.2 mg/dL Normal 0.0-0.4 [facility] Comment on above: Performed By: #### 4 5866 ####[facility] [address] [place], [place] [address] Glenn Gudino M.D. [id number] Protein [Mass/Vol] 5.8 g/dL Low 6.0-8.0 [facility] Comment on above: Performed By: #### 4 5866 ####[facility] [address] [place], [place] [address] Glenn Gudino M.D. [id number] MAGNESIUM LEVELon 10-11-2023 Magnesium [Mass/Vol] 2.2 mg/dL Normal 1.6-2.4 [facility] Comment on above: Performed By: #### 4 6109 ####[facility] [address] [place], [place] [address] Glenn Gudino M.D. [id number] OP NOTEon 10-11-2023 OP NOTE Normal [facility] PHOSPHORUSon 10-11-2023 Phosphate [Mass/Vol] 4.7 mg/dL High 2.8-4.1 [facility] Comment on above: Performed By: #### 4 6299 ####[facility] [address] [place] [address] Glenn Gudino M.D. [id number] POC GLUCOSE - [facility] 024 Glucose [Mass/Vol] 111 mg/dL High 65-99 [facility] Comment on above: Performed By: #### 4 6933 ####[facility] [address] [place] [address] [id number] [facility] Glucose [Mass/Vol] 56 mg/dL Low 65-[address] [place] [address] Comment on above: Performed By: #### 4 9669 ####[facility] [address] [place] [address] [id number] [facility] Glucose [Mass/Vol] 42 mg/dL Low 65-[address] [place] [address] Comment on above: Performed By: #### 4 0335 ####[facility] [address] [place] [address] [id number] [facility] Glucose [Mass/Vol] 50 mg/dL Low 65-[address] [place] [address] Comment on above: Performed By: #### 4 2304 ####[facility] [address] [place] [address] [id number] [facility] Glucose [Mass/Vol] 59 mg/dL Low 65-99 [facility] Comment on above: Performed By: #### 4 0131 ####[facility] [address] [place] [address] [id number] [facility] Glucose [Mass/Vol] 74 mg/dL Normal 65-99 [facility] Comment on above: Performed By: #### 4 1833 ####[facility] [address] [place] [address] [id number] [facility] Glucose [Mass/Vol] 119 mg/dL High 65- [facility] Comment on above: Performed By: #### 4 6932 ####[facility] [address] [place] [address] [id number] [facility] Glucose [Mass/Vol] 88 mg/dL Normal 65-99 [facility] Comment on above: Performed By: #### 4 6932 ####[facility] [address] [place] [address] [id number] [facility] Glucose [Mass/Vol] 126 mg/dL High 65- [facility] Comment on above: Performed By: #### 4 6932 ####[facility] [address] [place] [address] [id number] [facility] POTASSIUM LEVELon 10-11-2023 Potassium [Moles/Vol] 4.1 mmol/L Normal 3.5-5.1 [facility] Comment on above: Performed By: #### 4 6351 ####[facility] [address] [place] [address] Glenn Gudino M.D. [id number] PT/INRon 10-11-2023 INR Coag (PPP) [Relative time] 1.1 {INR} Normal 0.8-1.1 [facility] Comment on above: Order Comment: Jennifer retana the induction phase of oral anticoagulation, the INR may not reflect the anticoagulation status of the patient. Therapeutic ranges for INR's are:Most clinical situations: INR 2.0-3.0Mechanical Prosthetic Valve: INR 2.5-3.5Critical: INR >5.0 Performed By: #### 4 6391 ####[facility] [address] [place] [address] Glenn Gudino M.D. [id number] PT Coag (PPP) [Time] 14.3 s Normal 11.8-14.3 [facility] Comment on above: Order Comment: Jennifer retana the induction phase of oral anticoagulation, the INR may not reflect the anticoagulation status of the patient. Therapeutic ranges for INR's are:Most clinical situations: INR 2.0-3.0Mechanical Prosthetic Valve: INR 2.5-3.5Critical: INR >5.0 Performed By: #### 4 6391 ####[facility] [address] [place] [address] Glenn Gudino M.D. [id number] APTTon 10-10-2023 aPTT Coag (Bld) [Time] 34 s Normal 23-34 [facility] Comment on above: Order Comment: Thera peutic range for APTT's is 68 - 104 seconds Performed By: #### 4 5113 ####[facility] [address] [place] [address] Glenn Gudino M.D. [id number] BILIRUBIN, DIRECTon 10-10-19 24 Bilirubin.indirect [Mass/Vol] 1.1 mg/dL High 0.0-0.4 [facility] Comment on above: Performed By: #### 4 5145 ####[facility] [address] [place], [place] [address] Glenn Gudino M.D. [id number] CALCIUM, IONIZEDon CALCIUM IONIZED 4.3 mg/dL Low 4.5-5.3 [facility] Comment on above: Performed By: #### 4 5190 ####[facility] [address] [place], [place] [address] Glenn Gudino M.D. [id number] CBC WITH AUTO DIFFERENTIALon 10-10-2023 AUTO NRBC 0.0 % Normal [facility] Comment on above: Performed By: #### L [id number] ####[facility] [address] [place], [place] [address] Glenn Gudino M.D. [id number] AUTO NRBC ABS COUNT 0.00 K/mcL Normal 0.00-0.00 [facility] Comment on above: Performed By: #### L [id number] ####[facility] [address] [place] [address] Glenn Gudino M.D. [id number] BASOPHILS ABSOLUTE COUNT 0.02 K/mcL Normal 0.00-0.30 [facility] Comment on above: Performed By: #### L [id number] ####[facility] [address] [place] [address] Glenn Gudino M.D. [id number] Basophils/100 WBC (Bld) 0.1 % Normal [facility] Comment on above: Performed By: #### L [id number] ####[facility] [address] [place] [address] Glenn Gudino M.D. [id number] Eosinophils (Bld) [#/Vol] 0.01 10*3/uL Normal 0.00-0.50 [facility] Comment on above: Performed By: #### L [id number] ####[facility] [address] [place] [address] Glenn Gudino M.D. [id number] Eosinophils/100 WBC (Bld) 0.1 % Normal [facility] Comment on above: Performed By: #### L [id number] ####[facility] [address] [place] [address] Glenn Gudino M.D. [id number] Erythrocyte distribution width (RBC) [Ratio] 15.5 % High 11.6-14.8 [facility] Comment on above: Performed By: #### L [id number] ####[facility] [address] [place], [place] [address] Glenn Gudino M.D. [id number] Hematocrit (Bld) [Volume fraction] 28.6 % Low 36.0-46.0 [facility] Comment on above: Result Comment: Repe ated verified Performed By: #### L [id number] ####[facility] [address] [place] [address] Glenn Gudino M.D. [id number] Hemoglobin (Bld) [Mass/Vol] 9.7 g/dL Low 12.0-16.0 [facility] Comment on above: Result Comment: Repe ated verified Performed By: #### L [id number] ####[facility] [address] [place] [address] Glenn Gudino M.D. [id number] IG ABSOLUTE 0.46 K/mcL High 0.00-0.30 [facility] Comment on above: Performed By: #### L [id number] ####[facility] [address] [place] [address] Glenn Gudino M.D. [id number] IG PERCENT 3.00 % Normal [facility] Comment on above: Result Comment: The IG parameter is the percentage of metamyelocytes, myelocytes and promyelocytes. An immature granulocyte count (IG) of 1% or more suggests the possibility of infection, an IG count of 3% is very likely related to an infection. Performed By: #### L [id number] ####[facility] [address] [place] [address] Glenn Gudino M.D. [id number] Lymphocytes (Bld) [#/Vol] 0.44 10*3/uL Low 0.90-4.00 [facility] Comment on above: Performed By: #### L [id number] ####[facility] [address] [place] [address] Glenn Gudino M.D. [id number] Lymphocytes/100 WBC (Bld) 2.9 % Normal [facility] Comment on above: Performed By: #### L [id number] ####[facility] [address] [place] [address] Glenn Gudino M.D. [id number] MCH (RBC) [Entitic mass] 28.1 pg Normal 26.0-34.0 [facility] Comment on above: Performed By: #### Hugh [id number] ####[facility] [address] [place] [address] Glenn Gudino M.D. [id number] MCV (RBC) [Entitic vol] 82.9 fL Normal 80.0-100.0 [facility] Comment on above: Performed By: #### Hugh [id number] ####[facility] [address] [place] [address] Glenn Gudino M.D. [id number] MEAN CORPUSCULAR HEMOGLOBIN CONC 33.9 g/dL Normal 31.0-37.0 [facility] Comment on above: Performed By: #### Hugh [id number] ####[facility] [address] [place] [address] Glenn Gudino M.D. [id number] Monocytes (Bld) [#/Vol] 0.76 10*3/uL Normal 0.30-0.90 [facility] Comment on above: Performed By: #### Hugh [id number] ####[facility] [address] [place] [address] Glenn Gudino M.D. [id number] Monocytes/100 WBC (Bld) 5.0 % Normal [facility] Comment on above: Performed By: #### Hugh [id number] ####[facility] [address] [place] [address] Glenn Gudino M.D. [id number] NEUTROPHILS ABSOLUTE COUNT 13.47 K/mcL High 1.70-7.00 [facility] Comment on above: Performed By: #### Hugh [id number] ####[facility] [address] [place] [address] Glenn Gudino M.D. [id number] Neutrophils/100 WBC (Bld) 88.9 % Normal [facility] Comment on above: Performed By: #### L [id number] ####[facility] [address] [place] [address] 49823 Glenn Gudino M.D. [id number] Platelet mean volume (Bld) [Entitic vol] 9.6 fL Normal 9.4-12.4 [facility] Comment on above: Performed By: #### L [id number] ####[facility] [address] [place], [place] [address] Glenn Gudino M.D. [id number] Platelets (Bld) [#/Vol] 182 10*3/uL Normal 150-400 [facility] Comment on above: Result Comment: Repe ated verified Performed By: #### L [id number] ####[facility] [address] [place], [place] [address] Glenn Gudino M.D. [id number] RBC (Bld) [#/Vol] 3.45 10*6/uL Low 4.00-5.20 [facility] Comment on above: Performed By: #### L [id number] ####[facility] [address] [place], [place] [address] Glenn Gudino M.D. [id number] WBC (Bld) [#/Vol] 15.16 10*3/uL High 4.50-11.00 [facility] Comment on above: Performed By: #### L [id number] ####[facility] [address] [place] [address] 97944 Glenn Gudino M.D. [id number] COMPREHENSIVE METABOLIC PANE [place] 10-10-2023 Albumin [Mass/Vol] 2.2 g/dL Low 3.2-5.2 [facility] Comment on above: Order Comment: [facility] has implemented the eGFR calculation approach that does not have a coefficient for race that conforms to the NKF-ASN Task Force Recommendations. Performed By: #### 4 6126 ####[facility] [address] [place] [address] 29924 Glenn Gudino M.D. [id number] ALP [Catalytic activity/Vol] 62 U/L Normal 40-150 [facility] Comment on above: Order Comment: [facility] has implemented the eGFR calculation approach that does not have a coefficient for race that conforms to the NKF-ASN Task Force Recommendations. Performed By: #### 4 6126 ####[facility] [address] [place] [address] 88355 Glenn Gudino M.D. [id number] ALT [Catalytic activity/Vol] 31 U/L Normal 0-35 U/L [facility] Comment on above: Order Comment: [facility] has implemented the eGFR calculation approach that does not have a coefficient for race that conforms to the NKF-ASN Task Force Recommendations. Result Comment: Slig htly Hemolyzed Performed By: #### 4 6126 ####[facility] [address] [place] [address] 92867 Glenn Gudino M.D. [id number] Anion gap [Moles/Vol] 22 mmol/L High 10-20 Ignacia [facility] Comment on above: Order Comment: [facility] has implemented the eGFR calculation approach that does not have a coefficient for race that conforms to the NKF-ASN Task Force Recommendations. Performed By: #### 4 6126 ####[facility] [address] [place] [address] 49383 Glenn Gudino M.D. [id number] AST [Catalytic activity/Vol] 52 U/L High 0-35 U/L [facility] Comment on above: Order Comment: [facility] has implemented the eGFR calculation approach that does not have a coefficient for race that conforms to the NKF-ASN Task Force Recommendations. Result Comment: Slig htly Hemolyzed Performed By: #### 4 6126 ####[facility] [address] [place], [place] [address] Glenn Gudino M.D. [id number] Bilirubin [Mass/Vol] 1.3 mg/dL Normal 0.0-1.3 [facility] Comment on above: Order Comment: [facility] has implemented the eGFR calculation approach that does not have a coefficient for race that conforms to the NKF-ASN Task Force Recommendations. Performed By: #### 4 6126 ####[facility] [address] [place] [address] Glenn Gudino M.D. [id number] Calcium [Mass/Vol] 7.2 mg/dL Low 8.4-10.2 [facility] Comment on above: Order Comment: [facility] has implemented the eGFR calculation approach that does not have a coefficient for race that conforms to the NKF-ASN Task Force Recommendations. Performed By: #### 4 6126 ####[facility] [address] [place], [place] [address] Glenn Gudino M.D. [id number] Chloride [Moles/Vol] 97 mmol/L Low 98-108 [facility] Comment on above: Order Comment: [facility] has implemented the eGFR calculation approach that does not have a coefficient for race that conforms to the NKF-ASN Task Force Recommendations. Performed By: #### 4 6126 ####[facility] [address] [place], [place] [address] Glenn Gudino M.D. [id number] Creatinine [Mass/Vol] 1.32 mg/dL High 0.60-1.10 [facility] Comment on above: Order Comment: [facility] has implemented the eGFR calculation approach that does not have a coefficient for race that conforms to the NKF-ASN Task Force Recommendations. Performed By: #### 4 6126 ####[facility] [address] [place] [address] 83640 Glenn Gudino M.D. [id number] EGFR 46 mL/min/1.73 m2 Low >=60 [facility] Comment on above: Order Comment: [facility] has implemented the eGFR calculation approach that does not have a coefficient for race that conforms to the NKF-ASN Task Force Recommendations. Result Comment: Joi mated GFR was calculated using the 2020 CKD-EPI creatinine equation. Performed By: #### 4 6126 ####[facility] [address] [place], [place] [address] Glenn Gudino M.D. [id number] Glucose [Mass/Vol] 147 mg/dL High 65-99 [facility] Comment on above: Order Comment: [facility] has implemented the eGFR calculation approach that does not have a coefficient for race that conforms to the NKF-ASN Task Force Recommendations. Performed By: #### 4 6126 ####[facility] [address] [place], [place] [id number] Glenn Gudino M.D. [id number] HCO3 (Bld) [Moles/Vol] 19 mmol/L Low 21-32 [facility] Comment on above: Order Comment: [facility] has implemented the eGFR calculation approach that does not have a coefficient for race that conforms to the NKF-ASN Task Force Recommendations. Performed By: #### 4 6126 ####[facility] [address] [place] [address] Glenn Gudino M.D. [id number] Potassium [Moles/Vol] 4.9 mmol/L Normal 3.5-5.1 [facility] Comment on above: Order Comment: [facility] has implemented the eGFR calculation approach that does not have a coefficient for race that conforms to the NKF-ASN Task Force Recommendations. Result Comment: Slig htly Hemolyzed Performed By: #### 4 6126 ####[facility] [address] [place] [address] Glenn Gudino M.D. [id number] Protein [Mass/Vol] 5.1 g/dL Low 6.0-8.0 [facility] Comment on above: Order Comment: [facility] has implemented the eGFR calculation approach that does not have a coefficient for race that conforms to the NKF-ASN Task Force Recommendations. Performed By: #### 4 6126 ####[facility] [address] [place] [address]14[address] Glenn Gudino M.D. [id number] Sodium [Moles/Vol] 133 mmol/L Low 135-145 [facility] Comment on above: Order Comment: [facility] has implemented the eGFR calculation approach that does not have a coefficient for race that conforms to the NKF-ASN Task Force Recommendations. Performed By: #### 4 6126 ####[facility] [address] [place] [address] 27847 Glenn Gudino M.D. [id number] Urea nitrogen [Mass/Vol] 39 mg/dL High 8-25 [facility] Comment on above: Order Comment: [facility] has implemented the eGFR calculation approach that does not have a coefficient for race that conforms to the NKF-ASN Task Force Recommendations. Performed By: #### 4 6126 ####[facility] [address] [place], [place] [address] Glenn Gudino M.D. [id number] Urea nitrogen/Creatinine [Mass ratio] 29.5 mg/mg High 10.0-20.0 [facility] Comment on above: Order Comment: [facility] has implemented the eGFR calculation approach that does not have a coefficient for race that conforms to the NKF-ASN Task Force Recommendations. Performed By: #### 4 6126 ####[facility] [address] [place] [address] Glenn Gudino M.D. [id number] CONSULTon 10-10-2023 CONSULT Normal [facility] CONSULT Normal [facility] FIBRINOGENon 10-10-2023 FIBRINOGEN LEVEL 347 mg/dL Normal 224-483 [facility] Comment on above: Performed By: #### 4 5616 ####[facility] [address] [place] [address] Glenn Gudino M.D. [id number] LACTIC ACID, PLASMAon 2023 LACTIC ACID, PLASMA 1.0 mmol/L Normal 0.6-2.0 [facility] Comment on above: Performed By: #### 4 6053 ####[facility] [address] [place] [address] Glenn Gudino M.D. [id number] LDHon 10-10-2023 LDH [Catalytic activity/Vol] 339 U/L High 100-250 [facility] Comment on above: Performed By: #### 4 6065 ####[facility] [address] [place] [address] Glenn Gudino M.D. [id number] MAGNESIUM LEVELon 10-10-2023 Magnesium [Mass/Vol] 2.3 mg/dL Normal 1.6-2.4 [facility] Comment on above: Performed By: #### 4 6109 ####[facility] [address] [place] [address] Glenn Gudino M.D. [id number] PHOSPHORUSon 10-10-2023 Phosphate [Mass/Vol] 7.3 mg/dL High 2.8-4.1 [facility] Comment on above: Performed By: #### 4 6299 ####[facility] [address] [place] [address] Glenn Gudino M.D. [id number] POC ARTERIAL BLOOD GAS PANEL -[facility] 10-10-2023 BASE EXCESS, ARTERIAL -4.0 Low -2.0-2.0 [facility] Comment on above: Performed By: #### 4 8716 ####[facility] [address] [place] [address] [id number] [facility] CALCIUM IONIZED 4.2 mg/dL Low 4.5-5.3 [facility] Comment on above: Performed By: #### 4 8716 ####[facility] [address] [place] [address] [id number] [facility] CARBOXYHEMOGLOBIN 1.9 % of total Hb High <=1.5 [facility] Comment on above: Result Comment: Refe rence Ranges:Suburban Non-smokers: <1.5%Smokers: 1.5-5.0%Heavy Smokers: 5.0-9.0% Performed By: #### 4 9916 ####[facility] [address] [place] [address] [id number] [facility] Chloride [Moles/Vol] 98 mmol/L Normal 98-108 [facility] Comment on above: Performed By: #### 4 8716 ####[facility] [address] [place] [address] [id number] [facility] FIO2 40 Normal [facility] Comment on above: Performed By: #### 4 7616 ####[facility] [address] [place] [address] [id number] [facility] Glucose [Mass/Vol] 142 mg/dL High 65-99 [facility] Comment on above: Performed By: #### 4 2816 ####[facility] [address] [place] [address] [id number] [facility] HCO3 (Bld) [Moles/Vol] 21.3 mmol/L Low 22.0-26.0 [facility] Comment on above: Performed By: #### 4 1316 ####[facility] [address] [place] [address] [id number] [facility] Hematocrit (Bld) [Volume fraction] 31.0 % Low 36.0-46.0 [facility] Comment on above: Performed By: #### 4 7009 ####[facility] [address] [place] [address] [id number] [facility] Hemoglobin (Bld) [Mass/Vol] 10.1 g/dL Low 12.0-16.0 [facility] Comment on above: Performed By: #### 4 8716 ####[facility] [address] [place] [address] [id number] [facility] LACTIC ACID, WHOLE BLOOD 1.1 mmol/L Normal 0.6-2.0 [facility] Comment on above: Performed By: #### 4 8716 ####[facility] [address] [place] [address] [id number] [facility] METHEMOGLOBIN < Normal 0.0-2.0 [facility] Comment on above: Performed By: #### 4 8716 ####[facility] [address] [place] [address] [id number] [facility] O2HB 96.1 % Normal 94.0-98.0 [facility] Comment on above: Performed By: #### 4 7416 ####[facility] [address] [place] [address] [id number] [facility] Oxygen saturation in Blood 98.4 % Normal 92.0-99.0 [facility] Comment on above: Performed By: #### 4 8716 ####[facility] [address] [place] [address] [id number] [facility] PCO2 ARTERIAL 38.7 mm Hg Normal 35.0-45.0 [facility] Comment on above: Performed By: #### 4 4916 ####[facility] [address] [place] [address] [id number] [facility] PEEP RAD 5 Normal [facility] Comment on above: Performed By: #### 4 9916 ####[facility] [address] [place] [address] [id number] [facility] PH ARTERIAL 7.35 Normal 7.35-7.45 [facility] Comment on above: Performed By: #### 4 8228 ####[facility] [address] [place] [address] [id number] [facility] PO2 ARTERIAL 96 mm Hg Normal 80-100 [facility] Comment on above: Performed By: #### 4 8716 ####[facility] [address] [place] [address] [id number] [facility] Potassium [Moles/Vol] 4.6 mmol/L Normal 3.5-5.1 [facility] Comment on above: Performed By: #### 4 8716 ####[facility] [address] [place] [address] [id number] [facility] Sodium [Moles/Vol] 131 mmol/L Low 135-145 [facility] Comment on above: Performed By: #### 4 8716 ####[facility] [address] [place] [address] [id number] [facility] POC GLUCOSE [facility] 024 Glucose [Mass/Vol] 118 mg/dL High 65-99 [facility] Comment on above: Performed By: #### 4 2532 ####[facility] [address] [place] [address] [id number] [facility] Glucose [Mass/Vol] 53 mg/dL Low 65-99 [facility] Comment on above: Performed By: #### 4 8832 ####[facility] [address] [place] [address] [id number] [facility] Glucose [Mass/Vol] 144 mg/dL High 65-99 [facility] Comment on above: Performed By: #### 4 5940 ####[facility] [address] [place] [address] [id number] [facility] Glucose [Mass/Vol] 47 mg/dL Low 65-99 [facility] Comment on above: Performed By: #### 4 4720 ####[facility] [address] [place] [address] [id number] [facility] Glucose [Mass/Vol] 87 mg/dL Normal 65-99 [facility] Comment on above: Performed By: #### 4 8266 ####[facility] [address] [place] [address] [id number] [facility] Glucose [Mass/Vol] 167 mg/dL High [address] [place] [address] Comment on above: Performed By: #### 4 6932 ####[facility] [address] [place] [address] [id number] [facility] Glucose [Mass/Vol] 199 mg/dL High [address] [place] [address] Comment on above: Performed By: #### 4 6932 ####[facility] [address] [place] [address] [id number] [facility] Glucose [Mass/Vol] 186 mg/dL [address] Comment on above: Performed By: #### 4 6932 ####[facility] [address] [place] [address] [id number] [facility] Glucose [Mass/Vol] 158 mg/dL [address] Comment on above: Performed By: #### 4 6932 ####[facility] [address] [place] [address] [id number] [facility] PT/INRon 10-10-2023 INR Coag (PPP) [Relative time] 1.5 {INR} High 0.8-1.1 [facility] Comment on above: Order Comment: Jennifer retana the induction phase of oral anticoagulation, the INR may not reflect the anticoagulation status of the patient. Therapeutic ranges for INR's are:Most clinical situations: INR 2.0-3.0Mechanical Prosthetic Valve: INR 2.5-3.5Critical: INR >5.0 Performed By: #### 4 6391 ####[facility] [address] [place] [address] Glenn Gudino M.D. [id number] PT Coag (PPP) [Time] 18.2 s High 11.8-14.3 [facility] Comment on above: Order Comment: Jennifer retana the induction phase of oral anticoagulation, the INR may not reflect the anticoagulation status of the patient. Therapeutic ranges for INR's are:Most clinical situations: INR 2.0-3.0Mechanical Prosthetic Valve: INR 2.5-3.5Critical: INR >5.0 Performed By: #### 4 6391 ####[facility] [address] [place] [address] Glenn Gudino M.D. [id number] TRIGLYCERIDESon 10-10-2023 Triglyceride [Mass/Vol] 111 mg/dL Normal 30-150 [facility] Comment on above: Performed By: #### 4 6606 ####[facility] [address] [place] [address]70 Glenn Gudino M.D. [id number] XR CHEST PA/APon 10-10-2023 XR CHEST PA/AP Normal [facility] Comment on above: Order Comment: Injur y/Trauma or Illness?:Illness/OtherHow long have you had these symptoms (acute/chronic)?:UnknownReason for exam?:ETT placementHistory of cancer?:uSurgeries, chemotherapy, or radiation?:uType of Exam?:UnknownAdditional signs and symptoms?:no ABORH VERIFICATIONon 024 ABO and Rh group Nom (Bld) Blood group O Rh(D) positive [facility] ABO and Rh group Nom (Bld) ABO/Rh Verification [facility] Comment on above: Result Comment: Romi ent's ABO/Rh is verified. APTTon 10-09-2023 aPTT Coag (Bld) [Time] 36 s High 23-34 [facility] Comment on above: Order Comment: Thera peutic range for APTT's is 68 - 104 seconds Performed By: #### 4 5113 #### LAB [address] [place], [place] [address] Jaron Médnez M.D. [id number] BASIC METABOLIC PANELon 09-26 Anion gap [Moles/Vol] 14 mmol/L Normal 10-20 [facility] Comment on above: Order Comment: [facility] has implemented the eGFR calculation approach that does not have a coefficient for race that conforms to the NKF-ASN Task Force Recommendations. Performed By: #### 4 6124 #### [facility] [address] [place] [address] Jaron Méndez M.D. [id number] Calcium [Mass/Vol] 8.6 mg/dL Normal 8.4-10.2 [facility] Comment on above: Order Comment: [facility] has implemented the eGFR calculation approach that does not have a coefficient for race that conforms to the NKF-ASN Task Force Recommendations. Performed By: #### 4 6124 #### [facility] [address] [place] [address] Jaron Méndez M.D. [id number] Chloride [Moles/Vol] 95 mmol/L Low 98-108 [facility] Comment on above: Order Comment: [facility] has implemented the eGFR calculation approach that does not have a coefficient for race that conforms to the NKF-ASN Task Force Recommendations. Performed By: #### 4 6124 #### LAB [address] [place] [address] Jaron Méndez M.D. [id number] Creatinine [Mass/Vol] 1.80 mg/dL High 0.60-1.10 [facility] Comment on above: Order Comment: [facility] has implemented the eGFR calculation approach that does not have a coefficient for race that conforms to the NKF-ASN Task Force Recommendations. Performed By: #### 4 6124 #### LAB [address] [place] [address] Jaron Méndez M.D. [id number] EGFR 32 mL/min/1.73 m2 Low >=60 [facility] Comment on above: Order Comment: [facility] has implemented the eGFR calculation approach that does not have a coefficient for race that conforms to the NKF-ASN Task Force Recommendations. Result Comment: Joi mated GFR was calculated using the 2020 CKD-EPI creatinine equation. Performed By: #### 4 6124 #### [facility] [address] [place] [address] Jaron Méndez M.D. [id number] Glucose [Mass/Vol] 131 mg/dL High 65-99 [facility] Comment on above: Order Comment: [facility] has implemented the eGFR calculation approach that does not have a coefficient for race that conforms to the NKF-ASN Task Force Recommendations. Performed By: #### 4 6124 #### [facility] [address] [address] Jaron Méndez M.D. [id number] HCO3 (Bld) [Moles/Vol] 23 mmol/L Normal 21-32 [facility] Comment on above: Order Comment: [facility] has implemented the eGFR calculation approach that does not have a coefficient for race that conforms to the NKF-ASN Task Force Recommendations. Performed By: #### 4 6124 #### [facility] [place] [address] Jaron Méndez M.D. [id number] Potassium [Moles/Vol] 4.1 mmol/L Normal 3.5-5.1 [facility] Comment on above: Order Comment: [facility] has implemented the eGFR calculation approach that does not have a coefficient for race that conforms to the NKF-ASN Task Force Recommendations. Performed By: #### 4 6124 #### [place] [address] Jaron Méndez M.D. [id number] Sodium [Moles/Vol] 128 mmol/L Low 135-145 [facility] Comment on above: Order Comment: [facility] has implemented the eGFR calculation approach that does not have a coefficient for race that conforms to the NKF-ASN Task Force Recommendations. Performed By: #### 4 6124 #### SH [address] [address] Jaron Méndez M.D. [id number] Urea nitrogen [Mass/Vol] 46 mg/dL High 8-25 [facility] Comment on above: Order Comment: [facility] has implemented the eGFR calculation approach that does not have a coefficient for race that conforms to the NKF-ASN Task Force Recommendations. Performed By: #### 4 6124 #### [facility] [place] [address] Jaron Méndez M.D. [id number] Urea nitrogen/Creatinine [Mass ratio] 25.6 mg/mg High 10.0-20.0 [facility] Comment on above: Order Comment: [facility] has implemented the eGFR calculation approach that does not have a coefficient for race that conforms to the NKF-ASN Task Force Recommendations. Performed By: #### 4 6124 #### [facility] [address] [place] [address] Jaron Méndez M.D. [id number] CBC WITH AUTO DIFFERENTIALon 10-09-2023 BASOPHILS ABSOLUTE COUNT 0.01 K/mcL Normal 0.00-0.30 [facility] Comment on above: Performed By: #### 4 6391 #### [facility] [address] [place] [address] Jaron Méndez M.D. [id number] Basophils/100 WBC (Bld) 0.0 % Normal [facility] Comment on above: Performed By: #### 4 6391 #### [facility] [address] [place] [address] Jaron Méndez M.D. [id number] Eosinophils (Bld) [#/Vol] 0.00 10*3/uL Normal 0.00-0.50 [facility] Comment on above: Performed By: #### 4 6391 #### [facility] [address] [place] [address] Jaron Méndez M.D. [id number] Eosinophils/100 WBC (Bld) 0.0 % [facility] Comment on above: Performed By: #### 4 6391 #### [facility] [address] [place], [place] [address] Jaron Méndez M.D. [id number] Erythrocyte distribution width (RBC) [Ratio] 16.3 % High 11.6-14.8 [facility] Comment on above: Performed By: #### 4 6391 #### [facility] [address] [place] [address] Jaron Méndez M.D. [id number] Hematocrit (Bld) [Volume fraction] 22.3 % Low 36.0-46.0 [facility] Comment on above: Performed By: #### 4 6391 #### [facility] [address] [place] [address] Jaron Méndez M.D. [id number] Hemoglobin (Bld) [Mass/Vol] 7.2 g/dL Low 12.0-16.0 [facility] Comment on above: Performed By: #### 4 6391 #### [facility] [address] [place] [address] Jaron Méndez M.D. [id number] IG ABSOLUTE 0.33 K/mcL High 0.00-0.30 [facility] Comment on above: Performed By: #### 4 6391 #### [facility] [address] [place] [address] Jaron Méndez M.D. [id number] IG PERCENT 1.40 % [facility] Comment on above: Result Comment: The IG parameter is the percentage of metamyelocytes, myelocytes and promyelocytes. An immature granulocyte count (IG) of 1% or more suggests the possibility of infection, an IG count of 3% is very likely related to an infection. Performed By: #### 4 6391 #### [facility] [address] [place], [place] [address] Jaron Méndez M.D. [id number] Lymphocytes (Bld) [#/Vol] 1.27 10*3/uL Normal 0.90-4.00 [facility] Comment on above: Performed By: #### 4 6391 #### [facility] [address] [place] [address] Jaron Méndez M.D. [id number] Lymphocytes/100 WBC (Bld) 5.6 % Normal [facility] Comment on above: Performed By: #### 4 6391 #### [facility] [address] [place] [address] Jaron Méndez M.D. [id number] MCH (RBC) [Entitic mass] 27.7 pg Normal 26.0-34.0 [facility] Comment on above: Performed By: #### 4 6391 #### [facility] [address] [place] [address] Jaron Méndez M.D. [id number] MCV (RBC) [Entitic vol] 85.8 fL Normal 80.0-100.0 [facility] Comment on above: Performed By: #### 4 6391 #### [facility] [address] [place] [address] Jaron Méndez M.D. [id number] MEAN CORPUSCULAR HEMOGLOBIN CONC 32.3 g/dL Normal 31.0-37.0 [facility] Comment on above: Performed By: #### 4 6391 #### [facility] [address] [place] [address] Jaron Méndez M.D. [id number] Monocytes (Bld) [#/Vol] 1.96 10*3/uL High 0.30-0.90 [facility] Comment on above: Performed By: #### 4 6391 #### [facility] [address] [place], [place] [address] Jaron Méndez M.D. [id number] Monocytes/100 WBC (Bld) 8.6 % Normal [facility] Comment on above: Performed By: #### 4 6391 #### [facility] [address] [place], [place] [address] Jaron Méndez M.D. [id number] NEUTROPHILS ABSOLUTE COUNT 19.22 K/mcL High 1.70-7.00 [facility] Comment on above: Performed By: #### 4 6391 #### [facility] [address] [place] [address] Jaron Méndez M.D. [id number] Neutrophils/100 WBC (Bld) 84.4 % Normal [facility] Comment on above: Performed By: #### 4 6391 #### [facility] [address] [place] [address] Jaron Méndez M.D. [id number] Platelet mean volume (Bld) [Entitic vol] 9.6 fL Normal 9.4-12.4 [facility] Comment on above: Performed By: #### 4 6391 #### [facility] [address] [place] [address] Jaron Méndez M.D. [id number] Platelets (Bld) [#/Vol] 389 10*3/uL Normal 150-400 [facility] Comment on above: Performed By: #### 4 6391 #### [facility] [address] [place], [place] [address] Jarno Méndez M.D. [id number] RBC (Bld) [#/Vol] 2.60 10*6/uL Low 4.00-5.20 [facility] Comment on above: Performed By: #### 4 6391 #### [facility] [address] [place] [address] Jaron Méndez M.D. [id number] WBC (Bld) [#/Vol] 22.79 10*3/uL High 4.50-11.00 [facility] Comment on above: Performed By: #### 4 6391 #### [facility] [address] [place] [address] Jaron Méndez M.D. [id number] COVID-19/INFLUENZA A,B MOLEC ULARon 10-09-2023 SARS-CoV-2 (COVID-19) Ab IA Ql INFLUENZA A (CEPHEID) Not Detected INFLUENZA B (CEPHEID) Not Detected SARS-COV-2 (CEPYulexID) Not Detected This test was performed under the FDA's Emergency Use Authorization (EUA). Testing was performed using the Xpert Xpress SARS-CoV-2/Flu/RSV plus RT-PCR CepArkadin assay on the [employer] Xpress System. This test has not been approved for use in asymptomatic patients and its performance in this patient population has not been evaluated. Negative results do not rule out the presence of SARS-CoV-2/COVID-19. Fact sheets for this EUA can be found at the following links: For Healthcare Providers: https://www.fda.gov/media/ 831315/download For Patients: https://www.fda.gov/media/ 372040/download [facility] Comment on above: Performed By: #### L [id number] #### [facility] [address] [place] [address] Jaron Méndez M.D. [id number] CT ABDOMEN PELVIS WITHOUT CO NTRASTon 10-09-2023 CT ABDOMEN PELVIS WITHOUT CONTRAST EXAMINATION: CT ABDOMEN PELVIS WITHOUT CONTRAST HISTORY: ORDERING SYSTEM PROVIDED HISTORY: Righr sided abd pain/recent weight loss of 20 ib, TECHNOLOGIST PROVIDED HISTORY: Illness/Other Reason for exam: r side abdomenal pain AND weight loss of 20+ lb within a yr Encounter Type: Unknown Additional signs and symptoms: . ORDERING SYSTEM PROVIDED DIAGNOSIS CODES: COMPARISON: CT abdomen and pelvis 09/14/2018. PET-CT 10/19/2022. TECHNIQUE: CT of the abdomen and pelvis performed without contrast. Coronal and sagittal reformats obtained. Dose reduction techniques were achieved by using automated exposure control and/or adjustment of mA and/or kV according to patient size and/or use of iterative reconstruction technique. CONTRAST: None FINDINGS: Noncontrast CT optimized for evaluation of renal/urinary tract calculi. Limited evaluation of solid and hollow viscous organs. Lung: Small right pleural effusion. Mild bibasilar atelectasis. Liver: Hepatic steatosis. Gallbladder: No significant finding. Spleen: No significant finding. Pancreas: No significant finding. Adrenal glands: No significant finding. Kidneys, ureters and bladder: As below. Bowel: There is question of some ill-defined appearance of the large bowel wall in the rightward abdomen and lower abdomen/pelvis, with suspected pneumatosis, for example series 301, image 93. Peritoneum/retroperitoneum : As below. Lymph nodes: No significant finding. Vessels: Substantial increase in size of abdominal aortic aneurysm with evidence of rupture. Multi septated appearing calcifications involving the abdominal aorta, for example series 301, image 48. Aneurysm appears to be given at the infrarenal aspect of the abdominal aorta. There is a predominantly left to right aneurysmal dilatation of the abdominal aorta, current [place] measuring approximately 7.5 by 11.8 x 8.6 cm, AP by left to right by craniocaudal. Large volume right-sided retroperitoneal hemorrhage/hematoma with mass effect upon the right kidney. Blood products/hemorrhage also extends into the rightward peritoneal cavity. Peripheral hyperdensity of the aneurysmal sac is noted on series 301, image 36. Body wall: No significant finding. Reproductive: No significant finding. Bones: No significant finding. IMPRESSION: Very large ruptured infrarenal abdominal ortic aneurysm. Large volume right retroperitoneal/peritoneal hemorrhage/hematoma. Mass effect upon the right kidney. Multiple displaced calcifications involving the lumen of the abdominal aorta and prominent hyperdense rim surrounding the aneurysmal sac. Suspect underlying chronic dissection, intramural hematoma. Correlate for any history of an arteritis or infectious/inflammatory process to include mycotic aneurysm. There are some suspicious findings involving the large bowel in the rightward abdomen and lower abdomen/pelvis that could suggest underlying ischemia/necrosis. Presumably secondary to significant blood loss and potential adjacent involvement of the mesenteric vasculature. Small right pleural effusion. Hepatic steatosis. Critical findings discussed with Dr. Carrillo 10/09/2023 at 4:30 p.m. PDT. Workstation ID: [id number] Dictated by: RAGHU COLBY on MonOctober 09, 2023 7:43:05 PM EDT Transcribed by: RAGHU COLBY on MonOctober 09, 2023 7:43:05 PM EDT Finalized by: RAGHU COLBY on MonOctober 09, 2023 7:43:05 PM EDT [facility] Comment on above: Order Comment: Jennifer retana the induction phase of oral anticoagulation, the INR may not reflect the anticoagulation status of the patient. Therapeutic ranges for INR's are: Most clinical situations: INR 2.0-3.0 Mechanical Prosthetic Valve: INR 2.5-3.5 Critical: INR >5.0 CT ANGIOGRAM CHEST ABDOMEN P ELVISon 10-09-2023 CT ANGIOGRAM CHEST ABDOMEN PELVIS EXAMINATION: CT ANGIOGRAM CHEST ABDOMEN PELVIS HISTORY: ORDERING SYSTEM PROVIDED HISTORY: request by surgeon to evaluate ruptured aneurysm, TECHNOLOGIST PROVIDED HISTORY: Illness/Other Reason for exam: request by surgeon to evaluate ruptured aneurysm Encounter Type: Initial Additional signs and symptoms: back pain ORDERING SYSTEM PROVIDED DIAGNOSIS CODES: I71.33 Ruptured infrarenal abdominal aortic aneurysm (AAA) (HCC) R55 Syncope, unspecified syncope type R79.89 Elevated troponin D62 Acute blood loss anemia COMPARISON: 10/09/2023 and 09/15/2022 TECHNIQUE: CT angiogram images were obtained of the chest, abdomen and pelvis following intravenous contrast administration. Slab maximum intensity projection images were obtained in the sagittal and coronal planes. Sagittal and coronal reformatted images were also obtained. IOPAMIDOL 370 MG IODINE/ML (76 %) INTRAVENOUS SOLUTION - 75 mL, Dose reduction techniques were achieved by using automated exposure control and/or adjustment of mA and/or kV according to patient size and/or use of iterative reconstruction technique. FINDINGS: CHEST: LOWER NECK AND AXILLA: No lymphadenopathy. MEDIASTINAL/HILAR LYMPH NODES: No lymphadenopathy.Esophagus is unremarkable. HEART/PERICARDIUM: Severe coronary artery calcification. No pericardial effusion.. Thoracic aorta demonstrates normal caliber. Irregular atherosclerotic plaque formation is seen of the distal descending thoracic aorta. No dissection of the thoracic aorta.Central pulmonary arteries are clear. LUNGS/AIRWAYS: Trachea and central bronchi are patent.Moderate centrilobular emphysematous change. A few small stable post inflammatory subpleural nodules bilaterally. Patchy ground-glass airspace opacity posteriorly in the right lower lobe. Mild bilateral dependent atelectasis. PLEURAL CAVITY: Small right-sided pleural effusion. CHEST WALL: No acute finding. ABDOMEN: Liver: The liver is homogeneous with normal contours and normal size. Gallbladder: The gallbladder is unremarkable. There is no intra or extrahepatic is biliary dilatation. Pancreas: The pancreas is homogeneous without evidence for mass lesion or inflammation. Spleen: The spleen is unremarkable without evidence for mass lesion. Adrenals: The adrenal glands are unremarkable Kidneys and bladder: Left kidney is unremarkable. The right kidney is nonenhancing and displaced to the right with surrounding heterogeneous large perinephric hematoma..The ureters demonstrate normal caliber.The urinary bladder is unremarkable. GI tract: Stomach is unremarkable.Visualized small bowel is unremarkable without evidence for obstruction or active inflammation. This appendix has been surgically removed. The visualized portion of the large bowel is unremarkable. Reproductive: Unremarkable Lymph nodes: No retroperitoneal or abdominal lymphadenopathy. Vascular: There is again noted to be rupture of the right-side of the abdominal aorta with stable size of a enhancing pseudoaneurysm of the right-side of the retroperitoneum measuring 10 x 6 cm in appearing fairly stable in size to the prior examination.Celiac artery is patent. Superior mesenteric artery is patent. Inferior mesenteric artery appears likely occluded. Left renal artery is patent and unremarkable. The right renal arterynot visualized and is likely occluded from compression. Peritoneum/retroperitoneum : Hematoma extending in the right posterior pararenal space with similar attenuation to the noncontrast examination. Small amount of simple free fluid in the pelvis. Abdominal wall and skeletal: Unremarkable without acute abnormality. IMPRESSION: Again noted is a rupture of the right-side of the abdominal aorta at the level of the renal arteries with large enhancing pseudoaneurysm in the right side of the periaortic space. The size of the pseudoaneurysm appears similar to the noncontrast study. Large amount of perinephric hematoma without enhancement suggesting no active bleeding into the perinephric space or posterior pararenal space. Right kidney is displaced to the right and nonenhancing consistent with right renal artery compromise. The right renal artery is not visualized as enhancing. Patchy ground-glass right lower lung airspace opacity may suggest an inflammatory or infectious process. Bibasilar atelectasis. Workstation ID: [id number] Dictated by: RUSSELL STERLING on MonOctober 09, 2023 9:59:46 PM EDT Transcribed by: RUSSELL STERLING on MonOctober 09, 2023 9:59:46 PM EDT Finalized by: RUSSELL STERLING on MonOctober 09, 2023 9:59:46 PM EDT [facility] Comment on above: Order Comment: Jennifer retana the induction phase of oral anticoagulation, the INR may not reflect the anticoagulation status of the patient. Therapeutic ranges for INR's are: Most clinical situations: INR 2.0-3.0 Mechanical Prosthetic Valve: INR 2.5-3.5 Critical: INR >5.0 CT CHEST LOW DOSE LUNG JEANETTE Guevara 10-09-2023 CT CHEST LOW DOSE LUNG SCREENING - LCSP EXAMINATION: CT CHEST LOW DOSE LUNG SCREENING - LCSP HISTORY: Asymptomatic patient meeting NCCN high-risk criteria for lung screening. Annual examination. COMPARISON: CT chest dated 09/15/2022 TECHNIQUE: A low-dose screening protocol CT of the lungs was performed without contrast. Dose reduction technique used: Automated exposure control/Adjustment of the mA and/or kV according to patient size/Use of iterative reconstruction technique. SCAN PARAMETERS: 16 mAs, 110 kVp, Total DLP 46 mGy-cm FINDINGS: LUNG SCREENING SPECIFIC (LUNG-RADS): Nodules: New 5 mm solid noncalcified subpleural nodule in the posterior right lower lobe (series 3, image 75). Stable 6 mm solid noncalcified lentiform nodule associated with the right major fissure (series 3, image 75). Stable 3 mm solid noncalcified nodule associated with the right major fissure (series 3, image 82). Stable 8 mm solid noncalcified subpleural nodule in the posterior right upper lobe (series 3, image 45). OTHER FINDINGS: Central airways are patent. There is moderate apical predominant centrilobular emphysema. No significant parenchymal opacities. There is scattered atelectasis and/or scarring in the right greater than left lower lobes, particularly dependently. There is a tiny right pleural effusion. No pneumothorax. Standard three vessel aortic arch. Thoracic aorta is normal in caliber. There are moderately severe aortic atherosclerotic calcifications. The main pulmonary artery is normal in caliber. Heart is normal in size. No pericardial effusion. There are pronounced three-vessel coronary artery calcifications. Thoracic inlet is unremarkable. Visualized thyroid gland is unremarkable. Esophagus is normal in appearance. No pathologically enlarged mediastinal, hilar, or axillary lymph nodes. No acute or aggressive osseous lesions. There are mild multilevel degenerative changes in the thoracic spine. Limited noncontrast images of the upper abdomen demonstrate an incompletely imaged large hematoma in the right upper abdomen related to known aortic aneurysm rupture. IMPRESSION: 1. New 5 mm solid noncalcified subpleural nodule in the posterior right lower lobe. Per ACR Lung-RADS criteria, this is a probably benign finding, possibly representing focal atelectasis. Recommend follow-up low-dose lung cancer screening CT in 6 months. 2. Other solid noncalcified right lung nodules measuring up to 8 mm are stable. 3. Emphysema. 4. Tiny right pleural effusion. 5. Pronounced three-vessel coronary artery calcifications. 6. Incompletely imaged large hematoma in the right upper abdomen related to known aortic aneurysm rupture. This is better evaluated on same day CT angiogram of the chest, abdomen, and pelvis. At time of this dictation, patient has underwent endovascular repair of the aneurysm. OVERALL ASSESSMENT: Lung-RADS 3S Workstation ID: [id number] Dictated by: JUDD ALLAN on MonOctober 10, 2023 1:59:01 PM EDT Transcribed by: JUDD ALLAN on MonOctober 10, 2023 1:59:01 PM EDT Finalized by: JUDD ALLAN on MonOctober 10, 2023 1:59:01 PM EDT Normal [facility] Comment on above: Order Comment: Injur y/Trauma or Illness?:Illness/Other How long have you had these symptoms (acute/chronic)?:Chronic Reason for exam?:current smoker, 39 pack yrs, History of deep venous thrombosis, Factor V Leiden mutation (HCC), Lung nodule seen on imaging study, Screening for malignant neoplasm of respiratory organ Type of Exam?:Initial Additional signs and symptoms?:. ED Prov Noteon 10-09-2023 ED Prov Note Normal [facility] ED Prov Note ED PROVIDER NOTE [facility] NAME: Scott Obregon AGE: 63 y.o. : 1960 VISIT DATE: 10/09/2023 CSN: [id number] PCP: Ying Quispe DO Chief Complaint Patient presents with Syncope Pt arrives to ER today with complaints of multiple syncopal episodes happening spontaneously while walking or standing up from sitting position. Pt reports multiple symptom complaints over the last 1.5 years and arrives with jaundice skin with no hx of reported liver problems. Pt arrives reporting right hip pain that has been ongoing. Denied any injuries. Denied fever, chest pain or shortness of breath or diarrhea or abdominal pain. Past Medical History: Diagnosis Date Acute appendicitis with localized peritonitis and gangrene, without perforation or abscess 09/15/2018 Anemia Appendicitis 2019 Arm DVT (deep venous thromboembolism), acute, left (HCC) 05/2022 Disease of thyroid gland Hypothyroidism Hyperlipidemia Hypertension borderline Right hip pain previous PCP said has inflammation had cortisone injection in past w/ no help Past Surgical History: Procedure Laterality Date APPENDECTOMY APPENDECTOMY LAPAROSCOPIC N/A 09/14/2018 Procedure: APPENDECTOMY LAPAROSCOPIC; Surgeon: Татьяна Jenkins MD; Location: Main OR; Service: General Surgery CV IR INTERVENTIONAL RADIOLOGY N/A 11/16/2022 Procedure: USg Biopsy of Left Axillary Lymph Node; Surgeon: Judd Allan MD; Location: IR LAB; Service: Interventional Radiology Family History Problem Relation Age of Onset Heart disease Father Hypertension Father Cancer Father colon Diabetes Father Heart disease Sister Diabetes Sister Hypertension Sister Thyroid disease Mother Kidney disease Mother Breast cancer Sister Thyroid disease Sister Social History Socioeconomic History Marital status: Tobacco Use Smoking status: Every Day Packs/day: 0.50 Years: 20.00 Additional pack years: 0.00 Total pack years: 10.00 Types: Cigarettes Start date: 05/05/1996 Smokeless tobacco: Never Tobacco comments: I am down to 4 cigerettes a day Vaping Use Vaping Use: Never used Substance and Sexual Activity Alcohol use: Not Currently Comment: Occassionally Drug use: No Sexual activity: Not Currently Partners: Male Social Determinants of Health Financial Resource Strain: Low Risk (11/28/2022) Overall Financial Resource Strain (CARDIA) Difficulty of Paying Living Expenses: Not hard at all Food Insecurity: No Food Insecurity (11/28/2022) Hunger Vital Sign Worried About Running Out of Food in the Last Year: Never true Ran Out of Food in the Last Year: Never true Transportation Needs: No Transportation Needs (11/28/2022) PRAPARE - Transportation Lack of Transportation (Medical): No Lack of Transportation (Non-Medical): No Social Connections: Unknown (05/12/2021) Social Connection and Isolation Panel [NHANES] Frequency of Communication with Friends and Family: Once a week Housing Stability: Unknown (05/12/2021) Housing Stability Vital Sign Unable to Pay for Housing in the Last Year: No Previous Medications Medication Sig cyclobenzaprine (FLEXERIL) 10 MG tablet Take 1 (one) tablet (10 mg total) by mouth 3 (three) times a day as needed for muscle spasms . multivitamin (THERAGRAN) per tablet Take 1 (one) tablet by mouth daily . oxyCODONE-acetaminophen (PERCOCET) 5-325 mg per tablet Take 1 tablet 1 hour before MRI Scan . rosuvastatin (CRESTOR) 10 MG tablet Take 1 (one) tablet (10 mg total) by mouth daily . levothyroxine (SYNTHROID, LEVOTHROID) 125 MCG tablet TAKE 1 TABLET BY MOUTH DAILY levothyroxine (SYNTHROID, LEVOTHROID) 25 MCG tablet Take one tablet on Monday and Monday only in addition to 125mcg dose. . (Patient taking differently: Take one tablet on Monday and Monday only in addition to 125mcg dose. .) warfarin (COUMADIN) 5 MG tablet Take 1 tablet (5mg) on Monday, Monday, Monday, Monday. Take 1.5 tablets (7.5mg) on Monday, , Monday or as directed by the anticoagulation clinic. . (Patient not taking: Reported on 09/26/2023 .) warfarin (COUMADIN) 7.5 MG tablet Take 1 (one) tablet (7.5 mg total) by mouth daily On Monday and Monday . Allergies Allergen Reactions Iodine And Iodide Containing Products Rash and GI Intolerance Seafood, Vomiting Review of Systems Constitutional: Negative for chills and fever. HENT: Negative for congestion, ear pain, rhinorrhea and sore throat. Eyes: Negative for pain, discharge, redness and visual disturbance. Respiratory: Negative for cough, shortness of breath and wheezing. Cardiovascular: Negative for chest pain and palpitations. Gastrointestinal: Negative for abdominal distention, abdominal pain, constipation, diarrhea and vomiting. Genitourinary: Negative for dysuria, frequency and urgency. Musculoskeletal: Negative for back pain. Skin: Negative (more content not included)... Normal [facility] H AND Ney 10-09-2023 H AND P Normal [facility] HEPATIC FUNCTION PANELon Albumin [Mass/Vol] 2.3 g/dL Low 3.2-5.2 [facility] Comment on above: Performed By: #### [id number] #### [facility] [address] [place] [address] 23099 Jaron Méndez M.D. [id number] ALP [Catalytic activity/Vol] 70 U/L Normal 40-150 [facility] Comment on above: Performed By: #### 4 [id number] #### [facility] [address] [place] [address] 67257 Jaron Méndez M.D. [id number] ALT [Catalytic activity/Vol] 46 U/L Normal 14-65 [facility] Comment on above: Performed By: #### 4 [id number] #### [facility] [address] [place] [address] 65106 Jaron Méndez M.D. [id number] AST [Catalytic activity/Vol] 55 U/L High 0-35 U/L [facility] Comment on above: Performed By: #### 4 [id number] #### [facility] [address] [place] [address] 23408 Jaron Méndez M.D. [id number] Bilirubin [Mass/Vol] 0.6 mg/dL Normal 0.0-1.3 [facility] Comment on above: Performed By: #### 4 [id number] #### [facility] [address] [place] [address] 57696 Jaron Méndez M.D. [id number] Bilirubin.indirect [Mass/Vol] 0.3 mg/dL Normal 0.0-0.4 [facility] Comment on above: Performed By: #### 4 [id number] #### [facility] [address] [place] [address]0721 Jaron Méndez M.D. [id number] Protein [Mass/Vol] 7.2 g/dL Normal 6.0-8.0 [facility] Comment on above: Performed By: #### 4 [id number] #### LAB [address] [place] [address] 63759 Jaron Méndez M.D. [id number] MORPHOLOGYon 10-09-2023 OVAL SCAN Few Normal [facility] Comment on above: Performed By: #### [id number] #### LAB [address] [place] [address] 72171 Jaron Méndez M.D. [id number] PLATELET ESTIMATE Normal Normal [facility] Comment on above: Performed By: #### 4 [id number] #### LAB [address] [place] [address] 46843 Jaron Méndez M.D. [id number] RBC MORPH SCAN See Comment Normal [facility] Comment on above: Result Comment: RBC Indices confirmed with manual peripheral smear review. Performed By: #### 4 [id number] #### LAB [address] [place] [address] 33812 Jaron Méndez M.D. [id number] [facility] MR LUMBAR SPINE WITHOUT CONTRAST EXAMINATION: MRI lumbar spine 10/09/2023 (the study was presented to me for interpretation at 9 a.m. on 10/10/2023) HISTORY: ORDERING SYSTEM PROVIDED HISTORY: low back pain; L5-S1 degeneration; right dorsiflexion weakness (improving), and bilateral digits 1-3 numbness, TECHNOLOGIST PROVIDED HISTORY: Illness/Other Reason for exam: lbp Encounter Type: Initial Additional signs and symptoms: none ORDERING SYSTEM PROVIDED DIAGNOSIS CODES: M54.17 Lumbosacral radiculopathy R29.898 Weakness of right lower extremity R20.2 Paresthesias COMPARISON STUDY: PET/CT scan 10/19/2022 and radiographs lumbar spine 07/04/2023. TECHNIQUE: Sagittal T1, T2, STIR, axial T1 and T2-weighted images of the lumbar spine were obtained. FINDINGS: A few images are slightly degraded by motion artifact. There is severe discogenic disease at the L5-S1 level with retrolisthesis of L5 on S1 of 2 mm. There is no compression fracture. There is mild discogenic disease at the L3-4 and L4-5 level. The bone marrow signal intensity is age-appropriate. The conus medullaris is not studied in detail, but it appears grossly unremarkable. L1-2 level: No significant disc protrusion, spinal canal stenosis, or foraminal narrowing is seen. L2-3 level: No significant disc protrusion, spinal canal stenosis, or foraminal narrowing is seen. L3-4 level: There is a small right paracentral/right foraminal disc protrusion causing moderate narrowing of the right lateral recess and mild right foraminal narrowing. No central spinal canal stenosis or left foraminal narrowing. Mild facet joint arthropathy. L4-5 level: There is a small posterior disc bulge containing an annular fissure, but this does not appear to cause spinal canal stenosis or foraminal narrowing. There is moderate facet joint arthropathy. L5-S1 level: There is a posterior disc osteophyte complex combining with disc space narrowing to cause mild bilateral foraminal narrowing. There is no central spinal canal stenosis. There is facet joint arthropathy. There is partial visualization of a large infrarenal abdominal aortic aneurysm and there is also partial visualization of a large hematoma along the anterior and right side of this aneurysm. There is also evidence of retroperitoneal hemorrhage extending into the posterior right side of the retroperitoneum and this displaces the right kidney laterally. There is edema like signal within the adjacent right psoas muscle. IMPRESSION: 1. There is partial visualization of a ruptured large infrarenal abdominal aortic aneurysm with a large hematoma along the anterior aspect of the aneurysm and retroperitoneal hemorrhage within the right side of the abdomen. Please note that this examination was presented to me for interpretation at 9 a.m. on 10/10/2023 and by this time the patient had already had a CT scan of the abdomen and pelvis obtained at 6:17 p.m. on 10/09/2023 which better demonstrated the ruptured infrarenal abdominal aortic aneurysm and the retroperitoneal hemorrhage. These findings were critically reported to Dr. Carrillo by the interpreting radiologist at that time. 2. 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 3. There is a small right paracentral/right foraminal disc protrusion at the L3-4 level causing mild right foraminal narrowing and moderate narrowing of the right lateral recess. 4. There is mild bilateral foraminal narrowing at the L5-S1 level. Workstation ID: [id number] Dictated by: SHAWN WHITE on MonOctober 10, 2023 9:08:55 AM EDT Transcribed by: SHAWN WHITE on MonOctober 10, 2023 9:08:55 AM EDT Finalized by: SHAWN WHITE on MonOctober 10, 2023 9:08:55 AM EDT [facility] Comment on above: Order Comment: Injur y/Trauma or Illness?:Illness/Other How long have you had these symptoms (acute/chronic)?:Acute Reason for exam?:lbp Type of Exam?:Initial Additional signs and symptoms?:none POC ABG SURG - RALSon 2023 BASE EXCESS, ARTERIAL ISTAT -6 Low -2-2 [facility] Comment on above: Order Comment: Criti cherrie result acted upon time of test. Test performed at bedside. Performed By: #### [id number] ####[facility] [address] [place] [address] [id number] RM[facility] Glucose [Mass/Vol] 174 mg/dL High 65-99 [facility] Comment on above: Order Comment: Criti cherrie result acted upon time of test. Test performed at bedside. Performed By: #### 4 [id number] ####[facility] [address] [place] [address] [id number] [facility] HCO3 (Bld) [Moles/Vol] 19.6 mmol/L Low 22.0-26.0 [facility] Comment on above: Order Comment: Criti cherrie result acted upon time of test. Test performed at bedside. Performed By: #### 4 [id number] ####[facility] [address] [place] [address] [id number] [facility] Hematocrit (Bld) [Volume fraction] 17 % Low 36-46 [facility] Comment on above: Order Comment: Criti cherrie result acted upon time of test. Test performed at bedside. Performed By: #### [id number] ####[facility] [address] [place] [address] [id number] [facility] Hemoglobin (Bld) [Mass/Vol] 5.8 g/dL Off scale low 12.0-16.0 [facility] Comment on above: Order Comment: Criti cherrie result acted upon time of test. Test performed at bedside. Performed By: #### 4 [id number] ####[facility] [address] [place] [address] [id number] [facility] Oxygen saturation in Blood 100.0 % High 92.0-99.0 [facility] Comment on above: Order Comment: Criti cherrie result acted upon time of test. Test performed at bedside. Performed By: #### 4 [id number] ####[facility] [address] [place] [address] [id number] [facility] PCO2 ARTERIAL 38.7 mm Hg Normal 35.0-45.0 [facility] Comment on above: Order Comment: Criti cherrie result acted upon time of test. Test performed at bedside. Performed By: #### 4 [id number] ####[facility] [address] [place] [address] [id number] [facility] PH ARTERIAL 7.31 Low 7.35-7.45 [facility] Comment on above: Order Comment: Criti cherrie result acted upon time of test. Test performed at bedside. Performed By: #### 4 [id number] ####[facility] [address] [place] [address] [id number] [facility] PO2 ARTERIAL 387 mm Hg High 80-100 [facility] Comment on above: Order Comment: Criti cherrie result acted upon time of test. Test performed at bedside. Performed By: #### 4 [id number] ####[facility] [address] [place] [address] [id number] [facility] POC IONIZED CALCIUM 3.6 mg/dL Low 4.5-5.3 [facility] Comment on above: Order Comment: Criti cherrie result acted upon time of test. Test performed at bedside. Performed By: #### 4 [id number] ####[facility] [address] [place], [place] [id number] [facility] Potassium [Moles/Vol] 4.5 mmol/L Normal 3.5-5.1 [facility] Comment on above: Order Comment: Criti cherrie result acted upon time of test. Test performed at bedside. Performed By: #### 4 [id number] ####[facility] [address] [place] [address] [id number] [facility] Sodium [Moles/Vol] 130 mmol/L Low 135-145 [facility] Comment on above: Order Comment: Criti cherrie result acted upon time of test. Test performed at bedside. Performed By: #### 4 [id number] ####[facility] [address] [place] [address] [id number] [facility] BASE EXCESS, ARTERIAL ISTAT -7 Low -2-2 [facility] Comment on above: Performed By: #### 4 8670 ####[facility] [address] [place] [address] [id number] [facility] Glucose [Mass/Vol] 189 mg/dL High 65-99 [facility] Comment on above: Performed By: #### 4 [id number] ####[facility] [address] [place] [address] [id number] [facility] HCO3 (Bld) [Moles/Vol] 18.8 mmol/L Low 22.0-26.0 [facility] Comment on above: Performed By: #### 4 [id number] ####[facility] [address] [place] [address] [id number] [facility] PCO2 ARTERIAL 39.9 mm Hg Normal 35.0-45.0 [facility] Comment on above: Performed By: #### 4 [id number] ####[facility] [address] [place] [address] [id number] [facility] PH ARTERIAL 7.28 Low 7.35-7.45 [facility] Comment on above: Performed By: #### 4 [id number] ####[facility] [address] [place] [address] [id number] [facility] PO2 ARTERIAL > High 80-100 [facility] Comment on above: Performed By: #### 4 [id number] ####[facility] [address] [place] [address] [id number] [facility] POC HCT < Low 36-46 [facility] Comment on above: Performed By: #### 4 [id number] ####[facility] [address] [place] [address] [id number] [facility] POC IONIZED CALCIUM 3.8 mg/dL Low 4.5-5.3 [facility] Comment on above: Performed By: #### 4 [id number] ####[facility] [address] [place] [address] [id number] [facility] Potassium [Moles/Vol] 4.1 mmol/L Normal 3.5-5.1 [facility] Comment on above: Performed By: #### 4 [id number] ####[facility] [address] [place] [address] [id number] [facility] Sodium [Moles/Vol] 130 mmol/L Low 135-145 [facility] Comment on above: Performed By: #### 4 [id number] ####[facility] [address] [place] [address] [id number] [facility] ACT CELITE 246 seconds Normal [facility] Comment on above: Performed By: #### 4 8122 ####[facility] [address] [place] [address] [id number] [facility] POC [facility]EPOC[facility]09-2023 BASE EXCESS, VENOUS -7.0 Low -2.0-2.0 [facility] Comment on above: Order Comment: [facility] has implemented the eGFR calculation approach that does not have a coefficient for race that conforms to the NKF-ASN Task Force Recommendations. Performed By: #### P [id number] ####[facility] [address] [place] [address] Glenn Gudino M.D. [id number] CALCIUM IONIZED 3.9 mg/dL Low 4.5-5.3 [facility] Comment on above: Order Comment: [facility] has implemented the eGFR calculation approach that does not have a coefficient for race that conforms to the NKF-ASN Task Force Recommendations. Performed By: #### P [id number] ####[facility] [address] [place] [address] Glenn Gudino M.D. [id number] Chloride [Moles/Vol] 102 mmol/L Normal 98-108 [facility] Comment on above: Order Comment: [facility] has implemented the eGFR calculation approach that does not have a coefficient for race that conforms to the NKF-ASN Task Force Recommendations. Performed By: #### P [id number] ####[facility] [address] [place] [address] Glenn Gudino M.D. [id number] CO2 [Moles/Vol] 18 mmol/L Low 21-32 [facility] Comment on above: Order Comment: [facility] has implemented the eGFR calculation approach that does not have a coefficient for race that conforms to the NKF-ASN Task Force Recommendations. Performed By: #### P [id number] ####[facility] [address] [place], [place] [address] Glenn Gudino M.D. [id number] Creatinine [Mass/Vol] 1.87 mg/dL High 0.60-1.20 [facility] Comment on above: Order Comment: [facility] has implemented the eGFR calculation approach that does not have a coefficient for race that conforms to the NKF-ASN Task Force Recommendations. Performed By: #### P [id number] ####[facility] [address] [place], [place] [address] Glenn Gudino M.D. [id number] Glucose [Mass/Vol] 119 mg/dL High 65-99 [facility] Comment on above: Order Comment: [facility] has implemented the eGFR calculation approach that does not have a coefficient for race that conforms to the NKF-ASN Task Force Recommendations. Performed By: #### P [id number] ####[facility] [address] [place] [address] Glenn Gudino M.D. [id number] Hematocrit (Bld) [Volume fraction] 24 % Low 36-46 [facility] Comment on above: Order Comment: [facility] has implemented the eGFR calculation approach that does not have a coefficient for race that conforms to the NKF-ASN Task Force Recommendations. Performed By: #### P [id number] ####[facility] [address] [place] [address] Glenn Gudino M.D. [id number] HEMOGLOBIN, CALCULATED 8.1 g/dL Low 12.0-16.0 [facility] Comment on above: Order Comment: [facility] has implemented the eGFR calculation approach that does not have a coefficient for race that conforms to the NKF-ASN Task Force Recommendations. Performed By: #### P [id number] ####[facility] [address] [place] [address] Glenn Gudino M.D. [id number] Oxygen saturation in Blood 80.9 % High 40.0-70.0 [facility] Comment on above: Order Comment: [facility] has implemented the eGFR calculation approach that does not have a coefficient for race that conforms to the NKF-ASN Task Force Recommendations. Performed By: #### P [id number] ####[facility] [address] [place] [address] Glenn Gudino M.D. [id number] PCO2 VENOUS 32.0 mm Hg Low 41.0-51.0 [facility] Comment on above: Order Comment: [facility] has implemented the eGFR calculation approach that does not have a coefficient for race that conforms to the NKF-ASN Task Force Recommendations. Performed By: #### P [id number] ####[facility] [address] [place] [address] Glenn Gudino M.D. [id number] PH VENOUS 7.35 Normal 7.32-7.42 [facility] Comment on above: Order Comment: [facility] has implemented the eGFR calculation approach that does not have a coefficient for race that conforms to the NKF-ASN Task Force Recommendations. Performed By: #### P [id number] ####[facility] [address] [place] [address] Glenn Gudino M.D. [id number] PO2 VENOUS 47 mm Hg High 25-40 [facility] Comment on above: Order Comment: [facility] has implemented the eGFR calculation approach that does not have a coefficient for race that conforms to the NKF-ASN Task Force Recommendations. Performed By: #### P [id number] ####[facility] [address] [place] [address] Glenn Gudino M.D. [id number] POC GFR 30 mL/min/1.73 m2 Low >=60 [facility] Comment on above: Order Comment: [facility] has implemented the eGFR calculation approach that does not have a coefficient for race that conforms to the NKF-ASN Task Force Recommendations. Result Comment: Joi mated GFR was calculated using the 2020 CKD-EPI creatinine equation. Performed By: #### P [id number] ####[facility] [address] [place] [address] Glenn Gudino M.D. [id number] POC LACTATE 2.8 mmol/L High 0.6-2.0 [facility] Comment on above: Order Comment: [facility] has implemented the eGFR calculation approach that does not have a coefficient for race that conforms to the NKF-ASN Task Force Recommendations. Performed By: #### P [id number] ####[facility] [address] [place] [address] Glenn Gudino M.D. [id number] Potassium [Moles/Vol] 4.4 mmol/L Normal 3.5-5.1 [facility] Comment on above: Order Comment: [facility] has implemented the eGFR calculation approach that does not have a coefficient for race that conforms to the NKF-ASN Task Force Recommendations. Performed By: #### P [id number] ####[facility] [address] [place] [address] Glenn Gudino M.D. [id number] Sodium [Moles/Vol] 130 mmol/L Low 135-145 [facility] Comment on above: Order Comment: [facility] has implemented the eGFR calculation approach that does not have a coefficient for race that conforms to the NKF-ASN Task Force Recommendations. Performed By: #### P [id number] ####[facility] [address] [place] [address] Glenn Gudino M.D. [id number] Urea nitrogen [Mass/Vol] 47 mg/dL High 8-25 [facility] Comment on above: Order Comment: [facility] has implemented the eGFR calculation approach that does not have a coefficient for race that conforms to the NKF-ASN Task Force Recommendations. Performed By: #### P [id number] ####[facility] [address] [place] [address] Glenn Gudino M.D. [id number] PT/INRon 10-09-2023 INR Coag (PPP) [Relative time] 1.4 {INR} High 0.8-1.1 [facility] Comment on above: Order Comment: Jennifer retana the induction phase of oral anticoagulation, the INR may not reflect the anticoagulation status of the patient. Therapeutic ranges for INR's are:Most clinical situations: INR 2.0-3.0Mechanical Prosthetic Valve: INR 2.5-3.5Critical: INR >5.0 Performed By: #### 4 [id number] ####[facility] [address] [place] [address] Glenn Gudino M.D. [id number] PT Coag (PPP) [Time] 17.3 s High 11.8-14.3 [facility] Comment on above: Order Comment: Jennifer retana the induction phase of oral anticoagulation, the INR may not reflect the anticoagulation status of the patient. Therapeutic ranges for INR's are:Most clinical situations: INR 2.0-3.0Mechanical Prosthetic Valve: INR 2.5-3.5Critical: INR >5.0 Performed By: #### 4 [id number] ####[facility] [address] [place], [place] [address] Glenn Gudino M.D. [id number] INR Coag (PPP) [Relative time] 1.3 {INR} High 0.8-1.1 [facility] Comment on above: Order Comment: Jennifer retana the induction phase of oral anticoagulation, the INR may not reflect the anticoagulation status of the patient. Therapeutic ranges for INR's are: Most clinical situations: INR 2.0-3.0 Mechanical Prosthetic Valve: INR 2.5-3.5 Critical: INR >5.0 Performed By: #### 4 [id number] #### LAB [address] [place] [address] Jaron Méndez M.D. [id number] PT Coag (PPP) [Time] 16.3 s High 11.8-14.3 [facility] Comment on above: Order Comment: Jennifer g the induction phase of oral anticoagulation, the INR may not reflect the anticoagulation status of the patient. Therapeutic ranges for INR's are: Most clinical situations: INR 2.0-3.0 Mechanical Prosthetic Valve: INR 2.5-3.5 Critical: INR >5.0 Performed By: #### 4 [id number] #### [facility] [address] [place] [address] Jaron Méndez M.D. [id number] T4, FREEon 10-09-2023 Free T4 [Mass/Vol] 1.4 ng/dL Normal 0.7-1.7 [facility] Comment on above: Performed By: #### 4 6391 #### [facility] [address] [place] [address] Jaron Méndez M.D. [id number] TROPONINon 10-09-2023 BASELINE TROPONIN I NG/L 69 ng/L Off scale high <=59 [facility] Comment on above: Performed By: #### 4 6608 #### [facility] [address] [place] [address] Jaron Méndez M.D. [id number] TROPONIN I INTERPRETATION Possible acute cardiac injury. [facility] Comment on above: Performed By: #### 4 6608 #### [facility] [address] [place] [address] Jaron Méndez M.D. [id number] TSHon 10-09-2023 TSH Qn 8.26 m[IU]/L High 0.27-4.20 [facility] Comment on above: Performed By: #### 4 6613 #### [facility] [address] [place] [address] Jaron Méndez M.D. [id number] TYPE AND SCREENon 10-09-2023 TYPE AND SCREEN ABORH: O Positive AB SCREEN: Negative EXPIRATION DATE: 10/12/2023 23:[address] [facility] Comment on above: Performed By: #### 4 [id number] ####[facility] [address] [place] [address] Nurys Oneill MD [id number] [facility] TYPE AND SCREEN ABORH: O Positive AB SCREEN: Negative EXPIRATION DATE: 10/12/2023 23:59 EST [facility] XR CHEST PA/APon 10-09-2023 XR CHEST PA/AP EXAMINATION: XR CHEST PA/AP HISTORY: ORDERING SYSTEM PROVIDED HISTORY: syncope, TECHNOLOGIST PROVIDED HISTORY: Illness/Other Reason for exam: multiple syncopal episodes happening spontaneously while walking or sitting up Cancer History: u Surgery, RadiationHistory: u Encounter Type: Initial Additional signs and symptoms: . ORDERING SYSTEM PROVIDED DIAGNOSIS CODES: COMPARISON: CT from 10/09/2023 at 9:18 a.m.. FINDINGS: One-view chest x-ray. Emphysema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 N-Terminal [Mass/Vol] 294 pg/mL 0 - 300 pg/mL [facility] Natriuretic peptide.B prohor destinee N-Terminal [Mass/Vol]on 06-10-2022 [employer] Study Cut-offs Rule In: < /= 50 Years >450 pg/mL 51 Years - 75 Years >900 pg/mL 76 Years - 99 Years >1800 pg/mL Rule Out: All patients <300 pg/mL [facility] No Panel Informationon 06-10 Extra Tube Hold for add-ons. [facility] Comment on above: Auto resulted. [facility] Interpretation and review of laboratory results Normal [facility] PT/INRon 06-10-2022 INR Coag (PPP) [Relative time] 1.1 {INR} 0.8 - 1.1 [facility] TSH DL <= 0.005 mIU/L Qnon 0 06-10-2022 TSH Qn 1.98 m[IU]/L [facility] Troponinon 06-10-2022 Troponin I 15 ng/L NINF - 59 ng/L [facility] Troponin I Interpretation Normal [facility] Ultrasound Duplex Venous Arm LEFTon 06-10-2022 Patient Info Name: SCOTT OBREGON Age: 61 years : 1960 Gender: Female Exam Date: 06/10/2022 9:40 AM Patient Status: Emergency Tearoom Host: Kenzie Irwin RVT Referring Physician: CECILIA Babin; Indications R60.9 - Edema, unspecified Procedure Description 87752 Duplex examination using B-mode, color and spectral Doppler of extremity veins including responses to compression and other maneuvers; unilateral or limited study. Conclusions * Left. * Acute deep vein thrombosis in the subclavian and axillary veins of the left upper extremity. * All other deep veins visualized are normally patent. * No evidence of superficial thrombosis of the left cephalic and basilic veins. Risk Factors Patient has a history of hyperlipidemia and tobacco use-current. . Notification of Results: Results called to Porfirio Whyte PA-C at 06/10/2022 9:40:00 AM. Report Signatures Finalized by MICHAEL Carcamo DO on 06/10/2022 10:53 AM [facility] Philly Blake III, DO - 06/10/2022 Patient Info Name: SCOTT OBREGON Age: 61 years : 1960 Gender: Female Exam Date: 06/10/2022 9:40 AM Patient Status: Emergency Tearoom Host: Kenzie Irwin RVT Referring Physician: CECILIA Babin; Indications R60.9 - Edema, unspecified Procedure Description [id number] Duplex examination using B-mode, color and spectral Doppler of extremity veins including responses to compression and other maneuvers; unilateral or limited study. Conclusions * Left. * Acute deep vein thrombosis in the subclavian and axillary veins of the left upper extremity. * All other deep veins visualized are normally patent. * No evidence of superficial thrombosis of the left cephalic and basilic veins. Risk Factors Patient has a history of hyperlipidemia and tobacco use-current. . Notification of Results: Results called to Porfirio Whyte PA-C at 06/10/2022 9:40:00 AM. Report Signatures Finalized by MICHAEL Carcamo DO on 06/10/2022 10:53 AM [facility] Radiology Study observation (narrative) [facility] Ultrasound Duplex Venous Arm LEFTOrdered By: Philly Blake on 06-10-2022 [facility] Work Phone: XR Chest 1 Viewon 06-10-2022 No acute heart or lung disease identified. Workstation ID: [id number] [employer] EXAMINATION: XR CHEST PA/AP 06/10/2022 10:33 am HISTORY: ORDERING SYSTEM PROVIDED HISTORY: Chest wall pain, TECHNOLOGIST PROVIDED HISTORY: Illness/Other Reason for exam: pain and swelling left upper arm, chest waLL PAIN Cancer History: u Surgery, RadiationHistory: u Encounter Type: Initial Additional signs and symptoms: ORDERING SYSTEM PROVIDED DIAGNOSIS CODES: COMPARISON: None FINDINGS: Heart and vascularity are unremarkable. Lungs are free of focal infiltrates. Grossly no bony abnormality is appreciated. [employer] [facility] Alcides Garza MD - 06/10/2022 EXAMINATION: XR CHEST PA/AP 06/10/2022 10:33 am HISTORY: ORDERING SYSTEM PROVIDED HISTORY: Chest wall pain, TECHNOLOGIST PROVIDED HISTORY: Illness/Other Reason for exam: pain and swelling left upper arm, chest waLL PAIN Cancer History: u Surgery, RadiationHistory: u Encounter Type: Initial Additional signs and symptoms: ORDERING SYSTEM PROVIDED DIAGNOSIS CODES: COMPARISON: None FINDINGS: Heart and vascularity are unremarkable. Lungs are free of focal infiltrates. Grossly no bony abnormality is appreciated. IMPRESSION: No acute heart or lung disease identified. Workstation ID: [id number] [facility] Radiology Study observation (narrative) [facility] XR Chest 1 ViewOrdered By: Kirk Garza on 06-10-2022 [facility] Work Phone: XR Foot Left 3+ Views (Stand ramy)on 06-17-2021 No fractures no dislocations no subluxations. No tumors appreciated. GE RIS [facility] Radiology Study observation (narrative) [facility] Basic Metabolic Panelon 08-28 Anion gap molar conc 10 mmol/L 10 - 20 mmol/L [facility] Calcium mass conc 8.3 mg/dL Low 8.4 - 10.2 mg/dL [facility] Chloride molar conc 111 mmol/L High 98 - 108 mmol/L [facility] Creatinine mass conc 0.99 mg/dL 0.4 - 1 .1 mg/dL [facility] GFR/1.73 sq M predicted among non-blacks MDRD vol rate/area (S/P/Bld) The eGFR should be used for monitoring renal function only and not for medication dosing. [facility] GFR/1.73 sq M.predicted CKD-EPI vol rate/area (S/P/Bld) 64 >=60 mL/min/1.7 3 m2 [facility] Glucose mass conc 169 mg/dL High 65 - 99 mg/dL [facility] HCO3 molar conc 23 mmol/L 21 - 32 mmol/L [facility] Interpretation and review of laboratory results Abnormal [facility] Potassium molar conc 4.4 mmol/L 3.5 - 5 .1 mmol/L [facility] Sodium molar conc 140 mmol/L 135 - 145 mmol/L [facility] Urea nitrogen mass conc 12 mg/dL 8 - 25 mg/dL [facility] Urea nitrogen/Creatinine mass ratio 12.1 mg/mg [facility] CBC WITH AUTO DIFFERENTIALon 09-14-2018 Basophils #/vol (Bld) 0.04 10*3/uL [facility] Basophils/100 WBC (Bld) 0.3 % [facility] Eosinophils #/vol (Bld) 0.14 10*3/uL [facility] Eosinophils/100 WBC (Bld) 1.2 % [facility] Erythrocyte distribution width Entitic volume (RBC) 13.0 % 11.6 - 14.8 % [facility] Hematocrit Volume Fraction (Bld) 41.5 % 36 - 46 % [facility] Hemoglobin mass conc (Bld) 13.9 g/dL 12 - 16 g/dL [facility] Immature granulocytes #/vol (Bld) 0.04 10*3/uL [facility] Immature granulocytes/100 WBC (Bld) 0.30 % [facility] Comment on above: The IG parameter is the percentage of metamyelocytes, myelocytes, and promyelocytes. Interpretation and review of laboratory results Abnormal [facility] Lymphocytes #/vol (Bld) 3.32 10*3/uL [facility] Lymphocytes/100 WBC (Bld) 27.5 % [facility] MCH Entitic mass (RBC) 29.0 pg 26 - 34 pg [facility] MCHC mass conc (RBC) 33.5 g/dL 31 - 37 g/dL [facility] MCV Entitic volume (RBC) 86.6 fL 80 - 100 fL [facility] Monocytes #/vol (Bld) 0.80 10*3/uL [facility] Monocytes/100 WBC (Bld) 6.6 % [facility] Neutrophils #/vol (Bld) 7.75 10*3/uL High [facility] Neutrophils/100 WBC (Bld) 64.1 % [facility] Platelet mean volume Entitic volume (Bld) 9.4 fL 9 - 15.5 fL [facility] Platelets #/vol (Bld) 293 10*3/uL [facility] RBC #/vol (Bld) 4.79 10*6/uL [facility] WBC #/vol (Bld) 12.09 10*3/uL High [facility] alth CT KIDNEY STONEon 09-14-2018 EXAMINATION: CT KIDN EY STONE HISTORY: ORDERING SYSTEM PROVIDED HISTORY: Right lower quadrant pain, TECHNOLOGIST PROVIDED HISTORY: Reason for exam: pt c/o RLQ pain that started yesterday Illness/Other Encounter Type: Initial Additional signs and symptoms: Denies N/V/D ORDERING SYSTEM PROVIDED DIAGNOSIS CODES: COMPARISON: None TECHNIQUE: Dose reduction techniques were achieved by using automated exposure control and/or adjustment of mA and/or kV according to patient size and/or use of iterative reconstruction technique. 2 mm thick axial images were done from the upper abdomen to the inferior region of the pelvis without oral or IV contrast. Reconstructed coronal and sagittal images were presented. CONTRAST: None. FINDINGS: There is limited viewing of the lung bases. Mild atelectasis is noted dependently on the right. The inferior region the heart could not be seen. The GE junction was not well visualized. The abdominal and pelvic vasculature show no acute or gross process. 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 The gallbladder shows no inflammation or stones. The liver shows no abnormal densities or ductal dilatations. The superior aspect of the liver was cut off from the field of view. The superior aspect of the stomach and spleen were cut off from the field of view. These organs appear to be unremarkable as visualized. The pancreas, duodenum and adrenal glands are unremarkable. Both kidneys show no signs of stones or inflammation. No hydronephrosis is noted. The right and left ureters are unremarkable. Urinary bladder is unremarkable. The uterus and adnexal areas are unremarkable. The uterus is positioned somewhat to the right of midline. The inguinal and ischiorectal regions are unremarkable. The anus and rectum are unremarkable. The large and small bowels and mesenteries are unremarkable. Moderate inflammatory changes are noted in the right lower quadrant. The appendix shows no signs of stones but it is enlarged and there is fat stranding noted in the vicinity. Throughout the abdomen and pelvis there is no evidence of free air or loculated fluid collections. No mass or lymphadenopathy is noted. The subcutaneous tissues are unremarkable. No anterior abdominal wall hernia is noted. Degenerative changes are prominent at the disc space level of L5-S1. No bony lesions are noted. [facility], Rad In Fu ji Speechq - 09/14/2018 7:24 PM EDT EXAMINATION: CT KIDNEY STONE HISTORY: ORDERING SYSTEM PROVIDED HISTORY: Right lower quadrant pain, TECHNOLOGIST PROVIDED HISTORY: Reason for exam: pt c/o RLQ pain that started yesterday Illness/Other Encounter Type: Initial Additional signs and symptoms: Denies N/V/D ORDERING SYSTEM PROVIDED DIAGNOSIS CODES: COMPARISON: None TECHNIQUE: Dose reduction techniques were achieved by using automated exposure control and/or adjustment of mA and/or kV according to patient size and/or use of iterative reconstruction technique. 2 mm thick axial images were done from the upper abdomen to the inferior region of the pelvis without oral or IV contrast. Reconstructed coronal and sagittal images were presented. CONTRAST: None. FINDINGS: There is limited viewing of the lung bases. Mild atelectasis is noted dependently on the right. The inferior region the heart could not be seen. The GE junction was not well visualized. The abdominal and pelvic vasculature show no acute or gross process. 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 The gallbladder shows no inflammation or stones. The liver shows no abnormal densities or ductal dilatations. The superior aspect of the liver was cut off from the field of view. The superior aspect of the stomach and spleen were cut off from the field of view. These organs appear to be unremarkable as visualized. The pancreas, duodenum and adrenal glands are unremarkable. Both kidneys show no signs of stones or inflammation. No hydronephrosis is noted. The right and left ureters are unremarkable. Urinary bladder is unremarkable. The uterus and adnexal areas are unremarkable. The uterus is positioned somewhat to the right of midline. The inguinal and ischiorectal regions are unremarkable. The anus and rectum are unremarkable. The large and small bowels and mesenteries are unremarkable. Moderate inflammatory changes are noted in the right lower quadrant. The appendix shows no signs of stones but it is enlarged and there is fat stranding noted in the vicinity. Throughout the abdomen and pelvis there is no evidence of free air or loculated fluid collections. No mass or lymphadenopathy is noted. The subcutaneous tissues are unremarkable. No anterior abdominal wall hernia is noted. Degenerative changes are prominent at the disc space level of L5-S1. No bony lesions are noted. IMPRESSION: 1. Findings consistent with moderate to prominent appendicitis. The appendix is enlarged with surrounding inflammation. No sign of appendicolith, abscess formation or free air. 2. Additional chronic and degenerative changes as noted. Workstation ID: [id number] [facility] 1. Findings consiste nt with moderate to prominent appendicitis. The appendix is enlarged with surrounding inflammation. No sign of appendicolith, abscess formation or free air. 2. Additional chronic and degenerative changes as noted. Workstation ID: [id number] [facility] Chem 7on 09-14-2018 Anion gap molar conc 16 mmol/L 10 - 20 mmol/L [facility] Chloride molar conc 105 mmol/L 98 - 108 mmol/L [facility] Creatinine mass conc 1.20 mg/dL High 0.4 - 1 .1 mg/dL [facility] GFR/1.73 sq M predicted among non-blacks MDRD vol rate/area (S/P/Bld) The eGFR should be used for monitoring renal function only and not for medication dosing. [facility] GFR/1.73 sq M.predicted CKD-EPI vol rate/area (S/P/Bld) 51 Low >=60 mL/min/1.7 3 m2 [facility] Glucose mass conc 201 mg/dL High 65 - 99 mg/dL [facility] HCO3 molar conc 23 mmol/L 21 - 32 mmol/L [facility] Interpretation and review of laboratory results Abnormal [facility] Potassium molar conc 3.5 mmol/L 3.5 - 5 .1 mmol/L [facility] Sodium molar conc 140 mmol/L 135 - 145 mmol/L [facility] Urea nitrogen mass conc 12 mg/dL 8 - 25 mg/dL [facility] Urea nitrogen/Creatinine mass ratio 10.0 mg/mg [facility] URINALYSISon 09-14-2018 Bacteria Auto Ql (U) None Seen None Se en /hpf [facility] Bilirubin Ql (U) Negative Negative [facility] th Clarity Refractometry automated Nom (U) Clear Clear [facility] Color Nom (U) Yellow Colorless, Yellow [facility] Epithelial cells.squamous Auto #/area (Urine sed) <1 [facility] Glucose Automated test strip mass conc (U) Negative Negative mg/dL [facility] Hemoglobin Automated test strip Ql (U) Negative Negative [facility] Interpretation and review of laboratory results Normal [facility] Ketones mass conc (U) Negative Negati ve mg/dL [facility] Leukocyte esterase Automated test strip Ql (U) Negative Negative [facility] Nitrite Automated test strip Ql (U) Negative Negative [facility] pH (U) 5.0 [pH] [facility] Protein mass conc (U) Negative Negati ve mg/dL [facility] Specific gravity Relative Density (U) 1.006 [facility] Urobilinogen mass conc (U) <2.0 <2.0 mg/dL [facility] WBC Auto #/area (Urine sed) <1 [facility] Microscopic examinat ion is performed on all urinalysis samples and only positive findings are reported. The test for blood on the chemical analytic portion of urinalysis may also be positive due to hemoglobinuria and myoglobinuria and if red blood cells are present they are quantified by microscopic examination. [facility] Hepatitis C Antibodyon 09-28 Hepatitis C Antibody Negative Normal Negative [facility] Comment on above: Result Comment: Test performed using Adele ANNALISE immunoassay systemTest Performed by [facility] [address] [place] [address] Performed By: #### T SH, LIPID ####Unless otherwise noted, [facility] [id number]: [id number] Director: Jaron Méndez M.D.#### HEPCABS ####Unless otherwise noted, all testing performed by [address] [id number]: [id number] Director: Jaron Méndez M.D. Lipid Panelon 09-28-2017 Cholesterol 223 mg/dL High 100-199 [facility] Comment on above: Performed By: #### T SH, LIPID ####Unless otherwise noted, all testing performed by [address] [id number]: [id number] Director: Jaron Méndez M.D.#### HEPCABS ####Unless otherwise noted, all testing performed by [address] [id number]: [id number] Director: Jaron Méndez M.D. Cholesterol in VLDL mass conc 24 mg/dL Normal 5-40 [facility] Comment on above: Performed By: #### T SH, LIPID ####Unless otherwise noted, all testing performed by [address] [id number]: [id number] Director: Jaron Méndez M.D.#### HEPCABS ####Unless otherwise noted, all testing performed by [place] [phone]: [id number] Director: Jaron Méndez M.D. Cholesterol to HDL Ratio 5.2 {ratio} High 3.2-4.5 [facility] Comment on above: Result Comment: Funmilayo [place] Coronary Heart Disease Risk Factor (CHDRF):Average risk= 4.41/2 Average risk= 3.32 times Average risk= 7.1 Performed By: #### T SH, LIPID ####Unless otherwise noted, all testing performed by [address] [id number]: [id number] Director: Jaron Méndez M.D.#### HEPCABS ####Unless otherwise noted, all testing performed by [address] [id number]: [id number] Director: Jaron Méndez M.D. HDL Cholesterol 43 mg/dL Normal 40-59 [facility] Comment on above: Performed By: #### T SH, LIPID ####Unless otherwise noted, all testing performed by [address] [id number]: [id number] Director: Jaron Méndez M.D.#### HEPCABS ####Unless otherwise noted, all testing performed by [address] [id number]: [id number] Director: Jaron Méndez M.D. Interpretation and review of laboratory results Abnormal Invalid Interpretation Code [facility] LDL Cholesterol 156 mg/dL High 10 - 150 mg/dL [facility] LDL Cholesterol 156 mg/dL High 10-150 [facility] Comment on above: Performed By: #### T SH, LIPID ####Unless otherwise noted, all testing performed by [address] [id number]: [id number] Director: Jaron Méndez M.D.#### HEPCABS ####Unless otherwise noted, all testing performed by [address] [phone]: [id number] Director: Jaron Méndez M.D. Triglyceride 118 mg/dL Normal 30-150 [facility] Comment on above: Performed By: #### T SH, LIPID ####Unless otherwise noted, all testing performed by [address] [id number]: [id number] Director: Jaron Méndez M.D.#### HEPCABS ####Unless otherwise noted, all testing performed by [address] [phone]: [id number] Director: Jaron Méndez M.D. VLDL 24 mg/dL Invalid Interpretation Code 5 - 40 mg/dL [facility] TSHon 09-28-2017 Thyroid stimulating hormone (TSH) 2.63 uIU/mL Invalid Interpretation Code 0.32 - 5.00 [facility] Thyroid stimulating hormone (TSH) 2.63 uIU/mL Normal 0.32-5.00 [facility] Comment on above: Result Comment: Samp les from patients routinely receiving high dose biotin therapy(100-300 mg/day) may show falsely decreased results. Please correlateclinically. Performed By: #### T SH, LIPID ####Unless otherwise noted, all testing performed by [address] [id number]: [id number] Director: Jaron Méndez M.D.#### HEPCABS ####Unless otherwise noted, all testing performed by [address] [phone]: [id number] Director: Jaron Méndez M.D. XR Lumbar Spine 2-3 Views (Antonio carreno)on 09-05-2017 INR in blood by coagulation X-ray lumbosacral spine 2 views indication pain reveal mild levoscoliosis with lateral osteophyte formation of the L5-S1 region with slight narrowing of the L5 vertebral body more on the left than the right lateral reveals anterior osteophytes of the L4-5 L5-S1 region with mild loss of normal lordosis with no acute findings otherwise Invalid Interpretation Code FUJI SYNAPSE [facility] Vital Signs Date Time Vital Sign Value Performing Clinician Facility 09-15-2024 07:00-0400 Body temperature 98.6 [degF] Dr. Ethan Rodriguez MD Work Phone: 5(135)038-567445 [place] [address] 09-15-2024 07:00-0400 Diastolic blood pressure 85 mm[Hg] Dr. Ethan Rodriguez MD Work Phone: 7(614)448-448319 [address] 09-15-2024 07:00-0400 Heart rate 100 /min Dr. Ethan Rodriguez MD Work Phone: 3(960)501-376083 [place] [address] 09-15-2024 07:00-0400 Inhaled oxygen flow rate 4 L/min Dr. Ethan Rodriguez MD Work Phone: 3(281)905-001483 [place] [address] 09-15-2024 07:00-0400 Respiratory rate 20 /min Dr. Ethan Rodriguez MD Work Phone: 3(087)632-381783 [place] [address] 09-15-2024 07:00-0400 SaO2% (BldA) [Mass fraction] 96 % Dr. Ethan Rodriguez MD Work Phone: 4(804)702-913283 [place] [address] 09-15-2024 07:00-0400 Systolic blood pressure 145 mm[Hg] Dr. Ethan Rodriguez MD Work Phone: 9(291)018-695383 [place] [address] 09-15-2024 04:35-0400 Inhaled oxygen concentration 10 % Dr. Ethan Rodriguez MD Work Phone: 4(234)167-344845 [place] [address] 09-15-2024 04:23-0400 Body height 182.[address] Ethan Rodriguez MD Work Phone: 1(583)935-919483 [place] [address] 09-15-2024 04:23-0400 Body mass index (BMI) [Ratio] 16.5 kg/m2 Dr. Ethan Rodriguez MD Work Phone: 5(691)580-697383 [place] [address] 09-15-2024 04:23-0400 Body weight 55.[address] Ethan Rodriguez MD Work Phone: 8(670)109-290183 [place] [address] 08-31-2024 16:15-0400 Inhaled oxygen flow rate 3 L/min Dr. Ethan Rodriguez MD Work Phone: 8(691)524-738083 [place] [address] 08-31-2024 16:15-0400 SaO2% (BldA) [Mass fraction] 96 % Dr. Ethan Rodriguez MD Work Phone: 0(599)801-214583 [place] [address] 08-31-2024 14:00-0400 Body temperature 97 [degF] Dr. Ethan Rodriguez MD Work Phone: 1(416)413-795683 [place] [address] 08-31-2024 14:00-0400 Diastolic blood pressure 71 mm[Hg] Dr. Ethan Rodriguez MD Work Phone: 4(656)401-580983 [place] [address] 08-31-2024 14:00-0400 Heart rate 70 /min Dr. Ethan Rodriguez MD Work Phone: 3(385)958-289783 [place] [address] 08-31-2024 14:00-0400 Respiratory rate 16 /min Dr. Ethan Rodriguez MD Work Phone: 0(922)191-083983 [place] [address] 08-31-2024 14:00-0400 Systolic blood pressure 126 mm[Hg] Dr. Ethan Rodriguez MD Work Phone: 8(101)322-452583 [place] [address] 08-31-2024 09:38-0400 Body weight 54.[address] Ethan Rodriguez MD Work Phone: 4(496)280-295683 [place] [address] 08-17-2024 09:46-0400 Body temperature 97.8 [degF] Dr. Ethan Rodriguez MD Work Phone: 0(544)071-957545 [place] [address] 08-17-2024 09:46-0400 Diastolic blood pressure 96 mm[Hg] Dr. Ethan Rodriguez MD Work Phone: 3(532)506-914583 [place] [address] 08-17-2024 09:46-0400 Heart rate 107 /min Dr. Ethan Rodriguez MD Work Phone: 2(712)368-255345 [place] [address] 08-17-2024 09:46-0400 Inhaled oxygen flow rate 2 L/min Dr. Ethan Rodriguez MD Work Phone: 6(147)943-887845 [place] [address] 08-17-2024 09:46-0400 Respiratory rate 18 /min Dr. Ethan Rodriguez MD Work Phone: [facility] 08-17-2024 09:46-0400 SaO2% (BldA) [Mass fraction] 97 % Dr. Ethan Rodriguez MD Work Phone: [facility] 08-17-2024 09:46-0400 Systolic blood pressure 162 mm[Hg] Dr. Ethan Rodriguez MD Work Phone: 3(997)888-099319 [address] 08-17-2024 05:07-0400 Body mass index (BMI) [Ratio] 14.6 kg/m2 Dr. Ethan Rodriguez MD Work Phone: 7(201)170-509483 [place] [address] 08-17-2024 05:07-0400 Body weight [address] Ethan Rodriguez MD Work Phone: 2(754)944-276583 [place] [address] 08-14-2024 14:07-0400 Body height 182.[address] Ethan Rodriguez MD Work Phone: 9(692)542-245119 [address] 08-14-2024 12:20-0400 Body temperature 97.8 [degF] Dr. Ethan Rodriguez MD Work Phone: 0(324)049-238619 [address] 08-14-2024 12:20-0400 Diastolic blood pressure 70 mm[Hg] Dr. Ethan Rodriguez MD Work Phone: 0(503)569-811919 [address] 08-14-2024 12:20-0400 Heart rate 90 /min Dr. Ethan Rodriguez MD Work Phone: 9(528)548-089645 [place] [address] 08-14-2024 12:20-0400 Respiratory rate 17 /min Dr. Ethan Rodriguez MD Work Phone: [facility] 08-14-2024 12:20-0400 SaO2% (BldA) [Mass fraction] 94 % Dr. Ethan Rodriguez MD Work Phone: [facility] 08-14-2024 12:20-0400 Systolic blood pressure 95 mm[Hg] Dr. Ethan Rodriguez MD Work Phone: 9(020)290-580219 [address] 08-14-2024 11:00-0400 Inhaled oxygen flow rate 4 L/min Dr. Ethan Rodriguez MD Work Phone: 4(712)399-104345 [place] [address] 08-14-2024 07:25-0400 Body height 182.[address] Ethan Rodriguez MD Work Phone: 3(808)484-191645 [place] [address] 08-14-2024 07:25-0400 Body mass index (BMI) [Ratio] 16.7 kg/m2 Dr. Ethan Rodriguez MD Work Phone: 4(536)075-167945 [place] [address] 08-14-2024 07:25-0400 Body weight [address] Ethan Rodriguez MD Work Phone: 0(271)356-583383 [place] [address] 08-13-2024 15:30-0400 Inhaled oxygen flow rate 3 L/min Dr. Ethan Rodriguez MD Work Phone: 4(300)541-836183 [place] [address] 08-13-2024 14:36-0400 Body temperature 99 [degF] Dr. Ethan Rodriguez MD Work Phone: 2(015)726-182783 [place] [address] 08-13-2024 14:36-0400 Diastolic blood pressure 69 mm[Hg] Dr. Ethan Rodriguez MD Work Phone: 5(222)933-594683 [place] [address] 08-13-2024 14:36-0400 Heart rate 89 /min Dr. Ethan Rodriguez MD Work Phone: 8(734)236-484145 [place] [address] 08-13-2024 14:36-0400 Respiratory rate 18 /min Dr. Ethan Rodriguez MD Work Phone: 5(861)518-487883 [place] [address] 08-13-2024 14:36-0400 SaO2% (BldA) [Mass fraction] 100 % Dr. Ethan Rodriguez MD Work Phone: 8(330)149-675645 [place] [address] 08-13-2024 14:36-0400 Systolic blood pressure 144 mm[Hg] Dr. Ethan Rodriguez MD Work Phone: 5(984)306-231983 [place] [address] 08-12-2024 12:30-0400 Body mass index (BMI) [Ratio] 11.9 kg/m2 Dr. Ethan Rodriguez MD Work Phone: 9(026)913-541783 [place] [address] 08-12-2024 12:30-0400 Body weight [address] Ethan Rodriguez MD Work Phone: [facility] 08-06-2024 11:09-0400 Inhaled oxygen concentration 95 % Dr. Ethan Rodriguez MD Work Phone: [facility] 07-29-2024 17:48-0500 Body temperature 98.5 [degF] Dr. Ethan Rodriguez MD Work Phone: [facility] 07-29-2024 17:48-0500 Diastolic blood pressure 72 mm[Hg] Dr. Ethan Rodriguez MD Work Phone: 7(849)375-946545 [place] [address] 07-29-2024 17:48-0500 Heart rate 78 /min Dr. Ethan Rodriguez MD Work Phone: 9(702)311-399245 [place] [address] 07-29-2024 17:48-0500 Respiratory rate 18 /min Dr. Ethan Rodriguez MD Work Phone: 6(316)757-396445 [place] [address] 07-29-2024 17:48-0500 SaO2% (BldA) [Mass fraction] 97 % Dr. Ethan Rodriguez MD Work Phone: [facility] 07-29-2024 17:48-0500 Systolic blood pressure 149 mm[Hg] Dr. Ethan Rodriguez MD Work Phone: [facility] 07-29-2024 14:55-0500 Inhaled oxygen flow rate 2 L/min Dr. Ethan Rodriguez MD Work Phone: [facility] 07-29-2024 12:02-0500 Body weight 37.[address] Ethan Rodriguez MD Work Phone: [facility] 07-29-2024 11:30-0500 Body mass index (BMI) [Ratio] 11.2 kg/m2 Dr. Ethan Rodriguez MD Work Phone: [facility] 07-18-2024 18:01-0500 Diastolic blood pressure 66 mm[Hg] Dr. Ethan Rodriguez MD Work Phone: [facility] 07-18-2024 18:01-0500 Heart rate 62 /min Dr. Ethan Rodriguez MD Work Phone: [facility] 07-18-2024 18:01-0500 Inhaled oxygen flow rate 3 L/min Dr. Ethan Rodriguez MD Work Phone: 5(385)810-585683 [place] [address] 07-18-2024 18:01-0500 Respiratory rate 15 /min Dr. Ethan Rodriguez MD Work Phone: 4(412)101-164783 [place] [address] 07-18-2024 18:01-0500 SaO2% (BldA) [Mass fraction] 100 % Dr. Ethan Rodriguez MD Work Phone: 9(463)001-420383 [place] [address] 07-18-2024 18:01-0500 Systolic blood pressure 140 mm[Hg] Dr. Ethan Rodriguez MD Work Phone: 1(255)788-542683 [place] [address] 07-18-2024 15:40-0500 Body temperature 97.4 [degF] Dr. Ethan Rodriguez MD Work Phone: 6(289)685-049583 [place] [address] 07-18-2024 09:50-0500 Body mass index (BMI) [Ratio] 14.6 kg/m2 Dr. Ethan Rodriguez MD Work Phone: 8(206)316-702983 [place] [address] 07-18-2024 09:50-0500 Body weight 49.[address] Ethan Rodriguez MD Work Phone: 8(525)525-513283 [place] [address] 06-05-2024 15:34-0500 Body temperature 97.3 [degF] Dr. Ethan Rodriguez MD Work Phone: 9(835)198-897683 [place] [address] 06-05-2024 15:34-0500 Diastolic blood pressure 60 mm[Hg] Dr. Ethan Rodriguez MD Work Phone: 7(841)220-205319 [address] 06-05-2024 15:34-0500 Heart rate 98 /min Dr. Ethan Rodriguez MD Work Phone: 7(803)026-431083 [place] [address] 06-05-2024 15:34-0500 Respiratory rate 16 /min Dr. Ethan Rodriguez MD Work Phone: 0(524)860-782783 [place] [address] 06-05-2024 15:34-0500 Systolic blood pressure 90 mm[Hg] Dr. Ethan Rodriguez MD Work Phone: [facility] 04-30-2024 13:45-0500 Body mass index (BMI) [Ratio] 15 kg/m2 Dr. Ethan Rodriguez MD Work Phone: [facility] 04-30-2024 13:45-0500 Body weight 48.[address] Ethan Rodriguez MD Work Phone: [facility] 04-30-2024 13:45-0500 Diastolic blood pressure 81 mm[Hg] Dr. Ethan Rodriguez MD Work Phone: [facility] 04-30-2024 13:45-0500 Respiratory rate 18 /min Dr. Ethan Rodriguez MD Work Phone: [facility] 04-30-2024 13:45-0500 Systolic blood pressure 112 mm[Hg] Dr. Ethan Rodriguez MD Work Phone: [facility] 04-04-2024 10:22-0500 Body height 182.9 cm Cate Contreras CLIMATOLOGY PROFESSOR Work Phone: [facility] 04-04-2024 10:22-0500 Body mass index (BMI) [Ratio] 15.6 kg/m2 Cate Contreras CLIMATOLOGY PROFESSOR Work Phone: [facility] 04-04-2024 10:22-0500 Body weight 52.16 kg Cate Contreras CLIMATOLOGY PROFESSOR Work Phone: [facility] 04-04-2024 10:22-0500 Diastolic blood pressure 60 mm[Hg] Cate Contreras CLIMATOLOGY PROFESSOR Work Phone: [facility] 04-04-2024 10:22-0500 Heart rate 94 /min Cate Contreras CLIMATOLOGY PROFESSOR Work Phone: [facility] 04-04-2024 10:22-0500 Respiratory rate 12 /min Cate Contreras CLIMATOLOGY PROFESSOR Work Phone: [facility] 04-04-2024 10:22-0500 SaO2% (BldA) [Mass fraction] 92 % Cate Contreras CLIMATOLOGY PROFESSOR Work Phone: [facility] 04-04-2024 10:22-0500 Systolic blood pressure 82 mm[Hg] Cate Contreras CLIMATOLOGY PROFESSOR Work Phone: [facility] 01-09-2024 12:36-0400 Diastolic blood pressure 97 mm[Hg] Sarath Rey MD Work Phone: [facility] 01-09-2024 12:36-0400 Heart rate 73 /min Sarath Rey MD Work Phone: [facility] 01-09-2024 12:36-0400 Systolic blood pressure 146 mm[Hg] Sarath Rey MD Work Phone: [facility] 01-09-2024 12:30-0400 Body height 180.3 cm Sarath Rey MD Work Phone: [facility] 01-09-2024 12:30-0400 Body mass index (BMI) [Ratio] 16.46 kg/m2 Sarath Rey MD Work Phone: [facility] 01-09-2024 12:30-0400 Body weight 53.52 kg Sarath Rey MD Work Phone: [facility] 01-03-2024 07:49-0400 Body temperature 97.3 [degF] Makenzie Garza RN [facility] 01-03-2024 07:49-0400 Diastolic blood pressure 82 mm[Hg] Makenzie Garza RN [facility] 01-03-2024 07:49-0400 Heart rate 72 /min Makenzie Garza RN [facility] 01-03-2024 07:49-0400 Respiratory rate 18 /min Makenzie Garza RN [facility] 01-03-2024 07:49-0400 SaO2% (BldA) [Mass fraction] 94 % Makenzie Garza RN [facility] 01-03-2024 07:49-0400 Systolic blood pressure 144 mm[Hg] Makenzie Garza RN [facility] 12-27-2023 16:20-0400 Body mass index (BMI) [Ratio] 16.32 kg/m2 Nahid Lindsay PT [facility] [facility] 12[facility]27-2023 16:20-0400 Body temperature 98.1 [degF] Nahid Lindsay PT [facility] 12-27-2023 16:20-0400 Body weight 53.07 kg Nahid Lindsay PT [facility] 12-27-2023 16:20-0400 Diastolic blood pressure 82 mm[Hg] Nahid Lindsay PT [facility] 12-27-2023 16:20-0400 Heart rate 62 /min Nahid Lindsay PT [facility] 12-27-2023 16:20-0400 Respiratory rate 16 /min Nahid Lindsay PT [facility] 12-27-2023 16:20-0400 SaO2% (BldA) [Mass fraction] 96 % aNhid Lindsay PT [facility] 12-27-2023 16:20-0400 Systolic blood pressure 124 mm[Hg] Nahid Lindsay PT [facility] 12-27-2023 12:35-0400 Body temperature 97.11 [degF] Antonietta Aleshia [facility] 12-27-2023 12:35-0400 Diastolic blood pressure 80 mm[Hg] Antonietta Aleshia [facility] 12-27-2023 12:35-0400 Heart rate 72 /min Antonietta Aleshia [facility] 12-27-2023 12:35-0400 Respiratory rate 16 /min Antonietta Aleshia [facility] 12-27-2023 12:35-0400 SaO2% (BldA) [Mass fraction] 93 % Antonietta Aleshia [facility] 12-27-2023 12:35-0400 Systolic blood pressure 122 mm[Hg] Antonietta Aleshia [facility] 12-26-2023 11:59-0400 Diastolic blood pressure 87 mm[Hg] Sarath Rey MD Work Phone: [facility] 12-26-2023 11:59-0400 Heart rate 65 /min Sarath Rey MD Work Phone: [facility] 12-26-2023 11:59-0400 Systolic blood pressure 145 mm[Hg] Sarath Rey MD Work Phone: [facility] 12-26-2023 11:53-0400 Body height 180.3 cm Sarath Rey MD Work Phone: [facility] 12-26-2023 11:53-0400 Body mass index (BMI) [Ratio] 16.18 kg/m2 Sarath Rey MD Work Phone: [facility] 12-26-2023 11:53-0400 Body weight 52.62 kg Sarath Rey MD Work Phone: [facility] 12-25-2023 14:00-0400 Body temperature 96.91 [degF] [facility] 12-25-2023 14:00-0400 Diastolic blood pressure 90 mm[Hg] [facility] 12-25-2023 14:00-0400 Heart rate 80 /min [facility] 12-25-2023 14:00-0400 Respiratory rate 16 /min [facility] 12-25-2023 14:00-0400 Systolic blood pressure 147 mm[Hg] [facility] 12-20-2023 16:23-0400 Body temperature 98.8 [degF] Adilene Albright [facility] 12-20-2023 16:23-0400 Diastolic blood pressure 93 mm[Hg] Adilene Albright [facility] 12-20-2023 16:23-0400 Heart rate 66 /min [facility]-20-[facility]23 16:23-0400 Respiratory rate 16 /min Adileneher Albright [facility] 12-20-2023 16:23-0400 SaO2% (BldA) [Mass fraction] 98 % Adileneher Albright [facility] 12-20-2023 16:23-0400 Systolic blood pressure 150 mm[Hg] Adilene Albright [facility] 12-20-2023 12:22-0400 Body temperature 97.7 [degF] Ernestina Moody [facility] 12-20-2023 12:22-0400 Diastolic blood pressure 75 mm[Hg] Ernestina Moody [facility] 12-20-2023 12:22-0400 Heart rate 70 /min Ernestina Moody [facility] 12-20-2023 12:22-0400 Respiratory rate 16 /min Ernestina Moody [facility] 12-20-2023 12:22-0400 SaO2% (BldA) [Mass fraction] 98 % Ernestina Moody [facility] 12-20-2023 12:22-0400 Systolic blood pressure 148 mm[Hg] Ernestina Moody [facility] 12-18-2023 12:33-0400 Diastolic blood pressure 87 mm[Hg] Ernestina Moody [facility] 12-18-2023 12:33-0400 Respiratory rate 16 /min Ernestina Moody [facility] 12-18-2023 12:33-0400 Systolic blood pressure 153 mm[Hg] Ernestina Moody [facility] 12-18-2023 12:08-0400 Body temperature 97 [degF] Ernestina Moody [facility] 12-18-2023 12:08-0400 Heart rate 59 /min Ernestina Moody [facility] 12-14-2023 11:15-0400 Body temperature 97 [degF] Ernestina Moody [facility] 12-14-2023 11:15-0400 Diastolic blood pressure 72 mm[Hg] Ernestina Moody [facility] 12-14-2023 11:15-0400 Heart rate 62 /min Ernestina Moody [facility] 12-14-2023 11:15-0400 Respiratory rate 16 /min Ernestina Moody [facility] 12-14-2023 11:15-0400 SaO2% (BldA) [Mass fraction] 97 % Ernestina Moody [facility] 12-14-2023 11:15-0400 Systolic blood pressure 117 mm[Hg] Ernestina Moody [facility] 12-13-2023 13:12-0400 Body temperature 97 [degF] Makenzie Garza RN [facility] 12-13-2023 13:12-0400 Diastolic blood pressure 68 mm[Hg] Makenzie Garza RN [facility] 12-13-2023 13:12-0400 Heart rate 56 /min Makenzie Garza RN [facility] 12-13-2023 13:12-0400 Respiratory rate 18 /min Makenzie Garza RN [facility] 12-13-2023 13:12-0400 SaO2% (BldA) [Mass fraction] 99 % Makenzie Greg RN [facility] 12-13-2023 13:12-0400 Systolic blood pressure 118 mm[Hg] Makenzie Garza RN [facility] 12-13-2023 11:13-0400 Body temperature 97.2 [degF] Ernsetina Moody [facility] 12-13-2023 11:13-0400 Diastolic blood pressure 88 mm[Hg] Ernestina Moody [facility] 12-13-2023 11:13-0400 Heart rate 64 /min Ernestina Moody [facility] 12-13-2023 11:13-0400 Respiratory rate 16 /min Ernestina Moody [facility] 12-13-2023 11:13-0400 Systolic blood pressure 140 mm[Hg] Ernestina Moody RECYCLING TECHNICIAN [facility] 12-06-2023 14:27-0400 Body mass index (BMI) [Ratio] 15.9 kg/m2 Nahid Lindsay PT [facility] 12-06-2023 14:27-0400 Body temperature 98.1 [degF] Nahid Lindsay PT [facility] 12-06-2023 14:27-0400 Body weight 51.71 kg Nahid Lindsay PT [facility] 12-06-2023 14:27-0400 Diastolic blood pressure 74 mm[Hg] Nahid Lindsay PT [facility] 12-06-2023 14:27-0400 Heart rate 76 /min Nahid Lindsay PT [facility] 12-06-2023 14:27-0400 Respiratory rate 16 /min Nahid Lindsay PT [facility] 12-06-2023 14:27-0400 SaO2% (BldA) [Mass fraction] 96 % Nahid Lindsay PT [facility] 12-06-2023 14:27-0400 Systolic blood pressure 128 mm[Hg] Nahid Lindsay PT [facility] 12-06-2023 10:29-0400 Body temperature 97.7 [degF] Makenzie Garza RN [facility] 12-06-2023 10:29-0400 Diastolic blood pressure 78 mm[Hg] Makenzie Garza RN [facility] 12-06-2023 10:29-0400 Heart rate 88 /min Makenzie Garza RN [facility] 12-06-2023 10:29-0400 Respiratory rate 16 /min Makenzie Garza RN [facility] 12-06-2023 10:29-0400 Systolic blood pressure 148 mm[Hg] Makenzie Garza RN [facility] 12-05-2023 11:20-0400 Body temperature 97.7 [degF] Ernestina Moody RECYCLING TECHNICIAN [facility] 12-05-2023 11:20-0400 Diastolic blood pressure 73 mm[Hg] Ernestina Moody [facility] Comment on above: pt had not taken BP medication yet 12-05-2023 11:20-0400 Heart rate 69 /min Ernestina Moody [facility] 12-05-2023 11:20-0400 Respiratory rate 16 /min Ernestina Moody RECYCLING TECHNICIAN [facility] 12-05-2023 11:20-0400 SaO2% (BldA) [Mass fraction] 98 % Ernestina Moody RECYCLING TECHNICIAN [facility] 12-05-2023 11:20-0400 Systolic blood pressure 150 mm[Hg] Ernestina Moody [facility] Comment on above: pt had not taken BP medication yet 11-29-2023 13:07-0400 Body temperature 98.1 [degF] Sol Bui OT [facility] 11-29-2023 13:07-0400 Diastolic blood pressure 76 mm[Hg] Sol Bui OT [facility] 11-29-2023 13:07-0400 Heart rate 62 /min Sol Bui OT [facility] 11-29-2023 13:07-0400 Respiratory rate 14 /min Sol Bui OT [facility] 11-29-2023 13:07-0400 Systolic blood pressure 139 mm[Hg] Sol Bui OT [facility] 11-29-2023 11:44-0400 Body temperature 97.11 [degF] Adilene Albright [facility] 11-29-2023 11:44-0400 Diastolic blood pressure 77 mm[Hg] Adilene Albright [facility] 11-29-2023 11:44-0400 Heart rate 61 /min Adilene Albright [facility] 11-29-2023 11:44-0400 Respiratory rate 18 /min Adilene Albright [facility] 11-29-2023 11:44-0400 SaO2% (BldA) [Mass fraction] 100 % Adileneher Albright [facility] 11-29-2023 11:44-0400 Systolic blood pressure 127 mm[Hg] Adilene Albright [facility] 11-29-2023 09:19-0400 Body temperature 97.5 [degF] Ernestina Moody [facility] 11-29-2023 09:19-0400 Diastolic blood pressure 80 mm[Hg] Ernestina Moody [facility] 11-29-2023 09:19-0400 Heart rate 64 /min Ernestina Moody [facility] 11-29-2023 09:19-0400 Respiratory rate 16 /min Ernestina Moody [facility] 11-29-2023 09:19-0400 SaO2% (BldA) [Mass fraction] 99 % Ernestina Moody [facility] 11-29-2023 09:19-0400 Systolic blood pressure 127 mm[Hg] Ernestina Moody [facility] 11-28-2023 10:13-0400 Body temperature 97.2 [degF] Ernestina Moody [facility] 11-28-2023 10:13-0400 Diastolic blood pressure 82 mm[Hg] Ernestina Moody [facility] 11-28-2023 10:13-0400 Heart rate 69 /min Ernestina Moody [facility] 11-28-2023 10:13-0400 Respiratory rate 16 /min Ernestina Moody [facility] 11-28-2023 10:13-0400 SaO2% (BldA) [Mass fraction] 100 % Ernestina Moody [facility] 11-28-2023 10:13-0400 Systolic blood pressure 133 mm[Hg] Ernestina Moody [facility] 11-27-2023 15:51-0400 Body temperature 97.59 [degF] Giovany Montalvo [facility] 11-27-2023 15:51-0400 Diastolic blood pressure 76 mm[Hg] [facility]-27-[facility] 15:51-0400 Heart rate 83 /min [facility] 11-27-2023 15:51-0400 Respiratory rate 16 /min [facility] 11-27-2023 15:51-0400 SaO2% (BldA) [Mass fraction] 99 % [facility] 11-27-2023 15:51-0400 Systolic blood pressure 111 mm[Hg] [facility] 11-24-2023 15:47-0400 Body temperature 98.71 [degF] [facility] 11-24-2023 15:47-0400 Diastolic blood pressure 83 mm[Hg] [facility] 11-24-2023 15:47-0400 Heart rate 69 /min [facility] 11-24-2023 15:47-0400 Respiratory rate 16 /min [facility] 11-24-2023 15:47-0400 SaO2% (BldA) [Mass fraction] 99 % [facility] 11-24-2023 15:47-0400 Systolic blood pressure 163 mm[Hg] [facility] 11-23-2023 16:05-0400 Body temperature 97.7 [degF] [facility]-23-[facility] 16:05-0400 Diastolic blood pressure 89 mm[Hg] Giovany MONDRAGON [facility] 11-23-2023 16:05-0400 Heart rate 58 /min Giovany Montalvo [facility] 11-23-2023 16:05-0400 Respiratory rate 16 /min Giovany Montalvo [facility] 11-23-2023 16:05-0400 SaO2% (BldA) [Mass fraction] 99 % Giovany Montalvo [facility] 11-23-2023 16:05-0400 Systolic blood pressure 140 mm[Hg] Giovany Montalvo [facility] 11-23-2023 13:17-0400 Diastolic blood pressure 80 mm[Hg] Ying Mccurdywell DO Work Phone: [facility] 11-23-2023 13:17-0400 Systolic blood pressure 104 mm[Hg] Ying Mccurdywell DO Work Phone: [facility] 11-23-2023 13:11-0400 Body height 180.3 cm Ying Quispe DO Work Phone: [facility] 11-23-2023 13:11-0400 Body mass index (BMI) [Ratio] 16.01 kg/m2 iYng Quispe DO Work Phone: [facility] 11-23-2023 13:11-0400 Body temperature 98.29 [degF] Ying Mccurdywell DO Work Phone: [facility] 11-23-2023 13:11-0400 Body weight 52.07 kg Ying Quispe DO Work Phone: [facility] 11-23-2023 13:11-0400 Heart rate 90 /min Ying Blomkest DO Work Phone: [facility] 11-23-2023 13:11-0400 Respiratory rate 16 /min Ying Brittaney DO Work Phone: [facility] 11-23-2023 09:59-0400 Body temperature 96.8 [degF] Ernestina Moody RECYCLING TECHNICIAN [facility] 11-23-2023 09:59-0400 Diastolic blood pressure 81 mm[Hg] Ernestina Moody [facility] 11-23-2023 09:59-0400 Heart rate 67 /min Ernestina Moody [facility] 11-23-2023 09:59-0400 Respiratory rate 16 /min Ernestina Moody [facility] 11-23-2023 09:59-0400 Systolic blood pressure 157 mm[Hg] Ernestina Moody [facility] 11-22-2023 13:56-0400 Body temperature 98.49 [degF] Abigail Domka CLIMATOLOGY PROFESSOR Work Phone: [facility] 11-22-2023 13:56-0400 Diastolic blood pressure 74 mm[Hg] Abigail Domka CLIMATOLOGY PROFESSOR Work Phone: [facility] 11-22-2023 13:56-0400 Heart rate 89 /min Abigail Domka CLIMATOLOGY PROFESSOR Work Phone: [facility] 11-22-2023 13:56-0400 Respiratory rate 16 /min Abigail Domka CLIMATOLOGY PROFESSOR Work Phone: [facility] 11-22-2023 13:56-0400 SaO2% (BldA) [Mass fraction] 93 % Abigail Domka CLIMATOLOGY PROFESSOR Work Phone: [facility] 11-22-2023 13:56-0400 Systolic blood pressure 114 mm[Hg] Abigail Domka CLIMATOLOGY PROFESSOR Work Phone: [facility] 11-21-2023 13:21-0400 Body temperature 97.11 [degF] Adileneher Maurou [facility] 11-21-2023 13:21-0400 Diastolic blood pressure 64 mm[Hg] Adileneher Maurou [facility] 11-21-2023 13:21-0400 Heart rate 60 /min Adileneher Maurou [facility] 11-21-2023 13:21-0400 Respiratory rate 16 /min Adilene Nju [facility] 11-21-2023 13:21-0400 SaO2% (BldA) [Mass fraction] 100 % Adileneher Maurou [facility] 11-21-2023 13:21-0400 Systolic blood pressure 127 mm[Hg] Adileneher Maurou [facility] 11-21-2023 12:15-0400 Body temperature 97 [degF] Ernestina Moody [facility] 11-21-2023 12:15-0400 Diastolic blood pressure 63 mm[Hg] Ernestina Moody [facility] 11-21-2023 12:15-0400 Heart rate 59 /min Ernestina Moody [facility] 11-21-2023 12:15-0400 Respiratory rate 16 /min Ernestina Moody [facility] 11-21-2023 12:15-0400 SaO2% (BldA) [Mass fraction] 100 % Ernestina Moody [facility] 11-21-2023 12:15-0400 Systolic blood pressure 121 mm[Hg] Ernestina Moody [facility] 11-17-2023 15:18-0400 Body temperature 97.5 [degF] Giovany Montalvo [facility] 11-17-2023 15:18-0400 Diastolic blood pressure 86 mm[Hg] Giovany Motnalvo [facility] 11-17-2023 15:18-0400 Heart rate 75 /min Giovany [facility] 11-17-2023 15:18-0400 [facility]piratory rate 16 /min [facility] 11-17-2023 15:18-0400 SaO2% (BldA) [Mass fraction] 99 % [facility] 11-17-2023 15:18-0400 Systolic blood pressure 148 mm[Hg] [facility] 11-17-2023 08:07-0400 Diastolic blood pressure 81 mm[Hg] Tylor Kruger MD Work Phone: [facility] 11-17-2023 08:07-0400 Heart rate 65 /min Tylor Kruger MD Work Phone: [facility] 11-17-2023 08:07-0400 Systolic blood pressure 145 mm[Hg] Tylor Kruger MD Work Phone: [facility] 11-17-2023 08:05-0400 Body height 180.3 cm Tylor Kruger MD Work Phone: [facility] 11-17-2023 08:05-0400 Body mass index (BMI) [Ratio] 17.43 kg/m2 Tylor Kruger MD Work Phone: [facility] 11-17-2023 08:05-0400 Body weight 56.7 kg Tylor Kruger MD Work Phone: [facility] 11-16-2023 13:44-0400 Body temperature 97.7 [degF] Ernestina Moody [facility] 11-16-2023 13:44-0400 Diastolic blood pressure 64 mm[Hg] Ernestina Moody [facility] 11-16-2023 13:44-0400 Heart rate 65 /min Ernestina Moody [facility] 11-16-2023 13:44-0400 Respiratory rate 16 /min Ernestina Moody [facility] 11-16-2023 13:44-0400 SaO2% (BldA) [Mass fraction] 96 % Ernestina Moody [facility] 11-16-2023 13:44-0400 Systolic blood pressure 111 mm[Hg] Ernestina Moody [facility] 11-14-2023 10:17-0400 Body temperature 98.29 [degF] Nahid Lindsay [facility] 11-14-2023 10:17-0400 Diastolic blood pressure 78 mm[Hg] Nahid Lindsay PT [facility] 11-14-2023 10:17-0400 Heart rate 98 /min Nahid Lindsay PT [facility] 11-14-2023 10:17-0400 Respiratory rate 16 /min Nahid Lindsay PT [facility] 11-14-2023 10:17-0400 SaO2% (BldA) [Mass fraction] 99 % Nahid Lindsay PT [facility] 11-14-2023 10:17-0400 Systolic blood pressure 148 mm[Hg] Nahid Lindsay [facility] 11-14-2023 09:47-0400 Body temperature 100 [degF] Adileneher Maurou [facility] 11-14-2023 09:47-0400 Diastolic blood pressure 82 mm[Hg] Adileneher Simpsoniou [facility] 11-14-2023 09:47-0400 Heart rate 65 /min Adileneher Maurou [facility] 11-14-2023 09:47-0400 Respiratory rate 16 /min Adileneher Maurou [facility] 11-14-2023 09:47-0400 SaO2% (BldA) [Mass fraction] 97 % [facility] 11-14-2023 09:47-0400 Systolic blood pressure 148 mm[Hg] Adilene Albright [facility] 11-13-2023 16:18-0400 Body temperature 97.59 [degF] Giovany [facility] 11-13-2023 16:18-0400 Diastolic blood pressure 85 mm[Hg] [facility] 11-13-2023 16:18-0400 Heart rate 67 /min [facility] 11-13-2023 16:18-0400 Respiratory rate 16 /min [facility] 11-13-2023 16:18-0400 SaO2% (BldA) [Mass fraction] 99 % [facility] 11-13-2023 16:18-0400 Systolic blood pressure 150 mm[Hg] Giovany [facility] 11-08-2023 11:20-0400 Body temperature 99.3 [degF] [facility] 11-08-2023 11:20-0400 Diastolic blood pressure 91 mm[Hg] [facility] 11-08-2023 11:20-0400 Heart rate 70 /min [facility] 11-08-2023 11:20-0400 Respiratory rate 14 /min [facility] 11-08-2023 11:20-0400 SaO2% (BldA) [Mass fraction] 99 % [facility] 11-08-2023 11:20-0400 Systolic blood pressure 177 mm[Hg] [facility] 11-08-2023 00:00-0400 Body temperature 98.1 [degF] Antonietta Aleshia [facility] 11-08-2023 00:00-0400 Diastolic blood pressure 90 mm[Hg] Antonietta Aleshia [facility] 11-08-2023 00:00-0400 Heart rate 72 /min Antonietta Aleshia [facility] 11-08-2023 00:00-0400 Respiratory rate 16 /min Antonietta Aleshia [facility] 11-08-2023 00:00-0400 SaO2% (BldA) [Mass fraction] 97 % Antonietta Aleshia [facility] 11-08-2023 00:00-0400 Systolic blood pressure 148 mm[Hg] Antonietta Monk CIRCUIT DESIGN ENGINEER [facility] 11-06-2023 10:03-0400 Body temperature 97.9 [degF] Makenzie Garza RN [facility] 11-06-2023 10:03-0400 Diastolic blood pressure 88 mm[Hg] Makenzie Garza RN [facility] 11-06-2023 10:03-0400 Heart rate 74 /min Makenzie Garza RN [facility] 11-06-2023 10:03-0400 Respiratory rate 16 /min Makenzie Greg RN [facility] 11-06-2023 10:03-0400 SaO2% (BldA) [Mass fraction] 94 % Makenzie Garza RN [facility] 11-06-2023 10:03-0400 Systolic blood pressure 167 mm[Hg] Makenzie Garza RN [facility] 11-01-2023 13:10-0400 Diastolic blood pressure 76 mm[Hg] Cate Contreras CLIMATOLOGY PROFESSOR Work Phone: [facility] 11-01-2023 13:10-0400 Heart rate 52 /min Cate Contreras CLIMATOLOGY PROFESSOR Work Phone: [facility] 11-01-2023 13:10-0400 Systolic blood pressure 148 mm[Hg] Cate Contreras CLIMATOLOGY PROFESSOR Work Phone: [facility] 11-01-2023 12:53-0400 Body height 180.3 cm Cate Contreras CLIMATOLOGY PROFESSOR Work Phone: [facility] 11-01-2023 12:53-0400 Body mass index (BMI) [Ratio] 18.13 kg/m2 Cate Contreras CLIMATOLOGY PROFESSOR Work Phone: [facility] 11-01-2023 12:53-0400 Body weight 58.97 kg Cate Contreras CLIMATOLOGY PROFESSOR Work Phone: [facility] 09-26-2023 09:01-0400 Body height 180.3 cm Felicity Olson CLIMATOLOGY PROFESSOR Work Phone: [facility] 09-26-2023 09:01-0400 Body mass index (BMI) [Ratio] 17.25 kg/m2 Felicity Olson CLIMATOLOGY PROFESSOR Work Phone: [facility] 09-26-2023 09:01-0400 Body temperature 98.2 [degF] Felicity Olson CLIMATOLOGY PROFESSOR Work Phone: [facility] 09-26-2023 09:01-0400 Body weight 56.11 kg Felicity Olson CLIMATOLOGY PROFESSOR Work Phone: [facility] 09-26-2023 09:01-0400 Diastolic blood pressure 70 mm[Hg] Felicity Olson CLIMATOLOGY PROFESSOR Work Phone: [facility] 09-26-2023 09:01-0400 Heart rate 75 /min Felicity Olson CLIMATOLOGY PROFESSOR Work Phone: [facility] 09-26-2023 09:01-0400 Respiratory rate 18 /min Felicity Olson CLIMATOLOGY PROFESSOR Work Phone: [facility] 09-26-2023 09:01-0400 SaO2% (BldA) [Mass fraction] 93 % Felicity Olson CLIMATOLOGY PROFESSOR Work Phone: [facility] 09-26-2023 09:01-0400 Systolic blood pressure 114 mm[Hg] Felicity Wesley CLIMATOLOGY PROFESSOR Work Phone: [facility] 08-24-2023 12:56-0400 Body temperature 98.91 [degF] Theresa Boykin PA-C Work Phone: [facility] 08-24-2023 12:56-0400 Diastolic blood pressure 64 mm[Hg] Theresa Boykin PA-C Work Phone: [facility] 08-24-2023 12:56-0400 Systolic blood pressure 122 mm[Hg] Theresa Boykin PA-C Work Phone: [facility] 07-18-2023 08:55-0500 Body temperature 98.49 [degF] Yfn Puckett Jr., DPM Work Phone: [facility] 07-18-2023 08:55-0500 Diastolic blood pressure 70 mm[Hg] Yfn Puckett Jr. DPRaúl Work Phone: [facility] 07-18-2023 08:55-0500 Heart rate 89 /min Yfn Lavern Jr., DPM Work Phone: [facility] 07-18-2023 08:55-0500 Systolic blood pressure 109 mm[Hg] Yfn Lavern Jr., DPM Work Phone: [facility] 07-04-2023 08:25-0500 Body temperature 98.2 [degF] Yfn Lavenr Jr., DPM Work Phone: [facility] 07-04-2023 08:25-0500 Diastolic blood pressure 66 mm[Hg] Yfn Lavern Jr., DPM Work Phone: [facility] 07-04-2023 08:25-0500 Heart rate 92 /min Yfn Lavern Jr., DPM Work Phone: [facility] 07-04-2023 08:25-0500 Systolic blood pressure 100 mm[Hg] Yfn Lavern Jr., DPM Work Phone: [facility] 04-24-2023 11:26-0500 Body height 180.3 cm Ying Quispe DO Work Phone: [facility] 04-24-2023 11:26-0500 Body mass index (BMI) [Ratio] 19.54 kg/m2 Ying Quispe DO Work Phone: [facility] 04-24-2023 11:26-0500 Body temperature 97.9 [degF] Ying Quispe DO Work Phone: [facility] 04-24-2023 11:26-0500 Body weight 63.55 kg Ying Quispe DO Work Phone: [facility] 04-24-2023 11:26-0500 Diastolic blood pressure 68 mm[Hg] Ying Quispe DO Work Phone: [facility] 04-24-2023 11:26-0500 Heart rate 80 /min Ying Quispe DO Work Phone: [facility] 04-24-2023 11:26-0500 Respiratory rate 16 /min Ying Quispe DO Work Phone: [facility] 04-24-2023 11:26-0500 Systolic blood pressure 110 mm[Hg] Ying Quispe DO Work Phone: [facility] 01-25-2023 15:39-0400 Body height 180.3 cm Ying Quispe DO Work Phone: [facility] 01-25-2023 15:39-0400 Body mass index (BMI) [Ratio] 20.13 kg/m2 Ying Quispe DO Work Phone: [facility] 01-25-2023 15:39-0400 Body temperature 97.59 [degF] Ying Quispe DO Work Phone: [facility] 01-25-2023 15:39-0400 Body weight 65.45 kg Ying Quispe DO Work Phone: [facility] 01-25-2023 15:39-0400 Diastolic blood pressure 72 mm[Hg] Ying Quispe DO Work Phone: [facility] 01-25-2023 15:39-0400 Heart rate 72 /min Ying Quispe DO Work Phone: [facility] 01-25-2023 15:39-0400 Respiratory rate 18 /min Ying Quispe DO Work Phone: [facility] 01-25-2023 15:39-0400 SaO2% (BldA) [Mass fraction] 99 % Ying Quispe DO Work Phone: [facility] 01-25-2023 15:39-0400 Systolic blood pressure 132 mm[Hg] Ying Quispe DO Work Phone: [facility] 12-12-2022 09:32-0400 Body height 180.3 cm Lita Gu MD Work Phone: [facility] 12-12-2022 09:32-0400 Body mass index (BMI) [Ratio] 20.64 kg/m2 Lita Gu MD Work Phone: [facility] 12-12-2022 09:32-0400 Body temperature 98.1 [degF] Lita Gu MD Work Phone: [facility] 12-12-2022 09:32-0400 Body weight 67.13 kg Lita Gu MD Work Phone: [facility] 12-12-2022 09:32-0400 Diastolic blood pressure 84 mm[Hg] Lita Gu MD Work Phone: [facility] 12-12-2022 09:32-0400 Heart rate 93 /min Lita Gu MD Work Phone: [facility] 12-12-2022 09:32-0400 SaO2% (BldA) [Mass fraction] 97 % Lita Gu MD Work Phone: [facility] 12-12-2022 09:32-0400 Systolic blood pressure 130 mm[Hg] Lita Gu MD Work Phone: [facility] 11-28-2022 16:59-0400 Diastolic blood pressure 80 mm[Hg] Ying Quispe DO Work Phone: [facility] 11-28-2022 16:59-0400 Systolic blood pressure 146 mm[Hg] Ying Quispe DO Work Phone: [facility] 11-28-2022 16:12-0400 Body height 180.3 cm Ying Quispe DO Work Phone: [facility] 11-28-2022 16:12-0400 Body mass index (BMI) [Ratio] 21.27 kg/m2 Ying Quispe DO Work Phone: [facility] 11-28-2022 16:12-0400 Body temperature 98.29 [degF] Ying Quispe DO Work Phone: [facility] 11-28-2022 16:12-0400 Body weight 69.17 kg Ying Quispe DO Work Phone: [facility] 11-28-2022 16:12-0400 Heart rate 92 /min Ying Quispe DO Work Phone: [facility] 11-28-2022 16:12-0400 Respiratory rate 20 /min Ying Quispe DO Work Phone: [facility] 11-28-2022 16:12-0400 SaO2% (BldA) [Mass fraction] 99 % Ying Quispe DO Work Phone: [facility] 10-25-2022 10:32-0400 Body height 180.3 cm Lita Gu MD Work Phone: [facility] 10-25-2022 10:32-0400 Body mass index (BMI) [Ratio] 21.38 kg/m2 Lita Gu MD Work Phone: [facility] 10-25-2022 10:32-0400 Body temperature 98.71 [degF] Lita Gu MD Work Phone: [facility] 10-25-2022 10:32-0400 Body weight 69.54 kg Lita Gu MD Work Phone: [facility] 10-25-2022 10:32-0400 Diastolic blood pressure 78 mm[Hg] Lita Gu MD Work Phone: [facility] 10-25-2022 10:32-0400 Heart rate 86 /min Lita Gu MD Work Phone: [facility] 10-25-2022 10:32-0400 SaO2% (BldA) [Mass fraction] 94 % Lita Gu MD Work Phone: [facility] 10-25-2022 10:32-0400 Systolic blood pressure 137 mm[Hg] Lita Gu MD Work Phone: [facility] 09-27-2022 09:03-0400 Body height 180.3 cm Lita Gu MD Work Phone: [facility] 09-27-2022 09:03-0400 Body mass index (BMI) [Ratio] 22.82 kg/m2 Lita Gu MD Work Phone: [facility] 09-27-2022 09:03-0400 Body temperature 98.4 [degF] Lita Gu MD Work Phone: [facility] 09-27-2022 09:03-0400 Body weight 74.21 kg Lita Gu MD Work Phone: [facility] 09-27-2022 09:03-0400 Diastolic blood pressure 84 mm[Hg] Lita Gu MD Work Phone: [facility] 09-27-2022 09:03-0400 Heart rate 95 /min Lita Gu MD Work Phone: [facility] 09-27-2022 09:03-0400 SaO2% (BldA) [Mass fraction] 95 % Lita Gu MD Work Phone: [facility] 09-27-2022 09:03-0400 Systolic blood pressure 144 mm[Hg] Lita Gu MD Work Phone: [facility] 08-15-2022 16:36-0400 Body height 180.3 cm Ying Quispe DO Work Phone: [facility] 08-15-2022 16:36-0400 Body mass index (BMI) [Ratio] 23.32 kg/m2 Ying Quispe DO Work Phone: [facility] 08-15-2022 16:36-0400 Body temperature 99.19 [degF] Ying Quispe DO Work Phone: [facility] 08-15-2022 16:36-0400 Body weight 75.84 kg Ying Quispe DO Work Phone: [facility] 08-15-2022 16:36-0400 Diastolic blood pressure 80 mm[Hg] Ying Quispe DO Work Phone: [facility] 08-15-2022 16:36-0400 Heart rate 88 /min Ying Quispe DO Work Phone: [facility] 08-15-2022 16:36-0400 Respiratory rate 14 /min Ying Quispe DO Work Phone: [facility] 08-15-2022 16:36-0400 Systolic blood pressure 138 mm[Hg] Ying Quispe DO Work Phone: [facility] 07-06-2022 08:34-0500 Body height 180.3 cm Lita Gu MD Work Phone: [facility] 07-06-2022 08:34-0500 Body mass index (BMI) [Ratio] 24.02 kg/m2 Lita Gu MD Work Phone: [facility] 07-06-2022 08:34-0500 Body temperature 98.2 [degF] Lita Gu MD Work Phone: [facility] 07-06-2022 08:34-0500 Body weight 78.11 kg Lita Gu MD Work Phone: [facility] 07-06-2022 08:34-0500 Diastolic blood pressure 83 mm[Hg] Lita Gu MD Work Phone: [facility] 07-06-2022 08:34-0500 Heart rate 92 /min Lita Gu MD Work Phone: [facility] 07-06-2022 08:34-0500 SaO2% (BldA) [Mass fraction] 94 % Lita Gu MD Work Phone: [facility] 07-06-2022 08:34-0500 Systolic blood pressure 133 mm[Hg] Lita Gu MD Work Phone: [facility] 06-13-2022 15:17-0500 Body height 180.3 cm Ying Brittaney DO Work Phone: [facility] 06-13-2022 15:17-0500 Body mass index (BMI) [Ratio] 24.73 kg/m2 Ying Quispe DO Work Phone: [facility] 06-13-2022 15:17-0500 Body temperature 98.71 [degF] Ying Quispe DO Work Phone: [facility] 06-13-2022 15:17-0500 Body weight 80.42 kg Ying Quispe DO Work Phone: [facility] 06-13-2022 15:17-0500 Diastolic blood pressure 70 mm[Hg] Ying Quispe DO Work Phone: [facility] 06-13-2022 15:17-0500 Heart rate 72 /min Ying Quispe DO Work Phone: [facility] 06-13-2022 15:17-0500 Respiratory rate 18 /min Ying Quispe DO Work Phone: [facility] 06-13-2022 15:17-0500 Systolic blood pressure 132 mm[Hg] Ying Quispe DO Work Phone: [facility] 06-11-2022 09:40-0500 Body temperature 98.91 [degF] Shira Lopez MD Work Phone: [facility] 06-11-2022 09:40-0500 Diastolic blood pressure 74 mm[Hg] Shira Lopez MD Work Phone: [facility] 06-11-2022 09:40-0500 Heart rate 83 /min Shira Lopez MD Work Phone: [facility] 06-11-2022 09:40-0500 Respiratory rate 14 /min Shira Lopez MD Work Phone: [facility] 06-11-2022 09:40-0500 SaO2% (BldA) [Mass fraction] 96 % Shira Lopez MD Work Phone: [facility] 06-11-2022 09:40-0500 Systolic blood pressure 125 mm[Hg] Shira Lopez MD Work Phone: [facility] 06-10-2022 08:51-0500 Body height 180.3 cm Shira Lopez MD Work Phone: [facility] 06-10-2022 08:51-0500 Body mass index (BMI) [Ratio] 23.71 kg/m2 Shira Lopez MD Work Phone: [facility] 06-10-2022 08:51-0500 Body weight 77.11 kg Shira Lopez MD Work Phone: [facility] 06-06-2022 11:21-0500 Body height 179.7 cm Ying Quispe DO Work Phone: [facility] 06-06-2022 11:21-0500 Body mass index (BMI) [Ratio] 25.17 kg/m2 Ying Quispe DO Work Phone: [facility] 06-06-2022 11:21-0500 Body temperature 98.1 [degF] Ying Quispe DO Work Phone: [facility] 06-06-2022 11:21-0500 Body weight 81.28 kg Ying Quispe DO Work Phone: [facility] 06-06-2022 11:21-0500 Diastolic blood pressure 80 mm[Hg] Ying Quispe DO Work Phone: [facility] 06-06-2022 11:21-0500 Heart rate 80 /min Ying Quispe DO Work Phone: [facility] 06-06-2022 11:21-0500 Respiratory rate 16 /min Ying Quispe DO Work Phone: [facility] 06-06-2022 11:21-0500 Systolic blood pressure 130 mm[Hg] Ying Quispe DO Work Phone: [facility] 04-06-2022 11:17-0500 Body mass index (BMI) [Ratio] 25.06 kg/m2 Ying Quispe DO Work Phone: [facility] 04-06-2022 11:17-0500 Body temperature 98.49 [degF] Ying Quispe DO Work Phone: [facility] 04-06-2022 11:17-0500 Body weight 80.92 kg Ying Quispe DO Work Phone: [facility] 04-06-2022 11:17-0500 Diastolic blood pressure 76 mm[Hg] Ying Quispe DO Work Phone: [facility] 04-06-2022 11:17-0500 Heart rate 81 /min Ying Quispe DO Work Phone: [facility] 04-06-2022 11:17-0500 Respiratory rate 16 /min Ying Quispe DO Work Phone: [facility] 04-06-2022 11:17-0500 SaO2% (BldA) [Mass fraction] 96 % Ying Quispe DO Work Phone: [facility] 04-06-2022 11:17-0500 Systolic blood pressure 121 mm[Hg] Ying Quispe DO Work Phone: [facility] 01-05-2022 16:17-0400 Body height 179.7 cm Felicity Olson CLIMATOLOGY PROFESSOR Work Phone: [facility] 01-05-2022 16:17-0400 Body mass index (BMI) [Ratio] 25.73 kg/m2 Felicity Olson CLIMATOLOGY PROFESSOR Work Phone: [facility] 01-05-2022 16:17-0400 Body temperature 98.2 [degF] Felicity Olson CLIMATOLOGY PROFESSOR Work Phone: [facility] 01-05-2022 16:17-0400 Body weight 83.1 kg Felicity Olson CLIMATOLOGY PROFESSOR Work Phone: [facility] 01-05-2022 16:17-0400 Diastolic blood pressure 70 mm[Hg] Felicity Olson CLIMATOLOGY PROFESSOR Work Phone: [facility] 01-05-2022 16:17-0400 Heart rate 80 /min Felicity Olson CLIMATOLOGY PROFESSOR Work Phone: [facility] 01-05-2022 16:17-0400 Respiratory rate 16 /min Felicity Olson CLIMATOLOGY PROFESSOR Work Phone: [facility] 01-05-2022 16:17-0400 Systolic blood pressure 126 mm[Hg] Felicity Garciaker CLIMATOLOGY PROFESSOR Work Phone: [facility] 11-25-2021 16:10-0400 Body temperature 98.4 [degF] Yfn Puckett Jr., DPM Work Phone: [facility] 11-25-2021 16:10-0400 Diastolic blood pressure 82 mm[Hg] Yfn Lavern Jr., DPM Work Phone: [facility] 11-25-2021 16:10-0400 Heart rate 78 /min Yfn Lavern Jr., DPM Work Phone: [facility] 11-25-2021 16:10-0400 Systolic blood pressure 136 mm[Hg] Yfn Lavern Jr., DPM Work Phone: [facility] 11-18-2021 08:01-0400 Body height 179.7 cm Ying Quispe DO Work Phone: [facility] 11-18-2021 08:01-0400 Body mass index (BMI) [Ratio] 26.69 kg/m2 Ying Quispe DO Work Phone: [facility] 11-18-2021 08:01-0400 Body temperature 98.29 [degF] Ying Quispe DO Work Phone: [facility] 11-18-2021 08:01-0400 Body weight 86.18 kg Ying Quispe DO Work Phone: [facility] 11-18-2021 08:01-0400 Diastolic blood pressure 70 mm[Hg] Ying Quispe DO Work Phone: [facility] 11-18-2021 08:01-0400 Heart rate 66 /min Ying Quispe DO Work Phone: [facility] 11-18-2021 08:01-0400 Respiratory rate 16 /min Ying Quispe DO Work Phone: [facility] 11-18-2021 08:01-0400 Systolic blood pressure 138 mm[Hg] Ying Quispe DO Work Phone: [facility] 06-21-2021 14:44-0500 Body height 179.7 cm Ying Quispe DO Work Phone: [facility] 06-21-2021 14:44-0500 Body mass index (BMI) [Ratio] 26.21 kg/m2 Ying Quispe DO Work Phone: [facility] 06-21-2021 14:44-0500 Body temperature 98.6 [degF] Ying Quispe DO Work Phone: [facility] 06-21-2021 14:44-0500 Body weight 84.64 kg Ying Quispe DO Work Phone: [facility] 06-21-2021 14:44-0500 Diastolic blood pressure 80 mm[Hg] Ying Quispe DO Work Phone: [facility] 06-21-2021 14:44-0500 Heart rate 86 /min Ying Quispe DO Work Phone: [facility] 06-21-2021 14:44-0500 Respiratory rate 16 /min Ying Quispe DO Work Phone: [facility] 06-21-2021 14:44-0500 Systolic blood pressure 126 mm[Hg] Ying Quispe DO Work Phone: [facility] 06-17-2021 16:11-0500 Body temperature 97.3 [degF] Yfn Puckett Jr., DPM Work Phone: [facility] 06-17-2021 16:11-0500 Diastolic blood pressure 84 mm[Hg] Yfn Puckett Jr., DPM Work Phone: [facility] 06-17-2021 16:11-0500 Heart rate 94 /min Yfn Puckett Jr., DPM Work Phone: [facility] 06-17-2021 16:11-0500 Systolic blood pressure 135 mm[Hg] Yfnalysa Puckett Jr., DPM Work Phone: [facility] 05-12-2021 09:36-0500 Body height 179.7 cm Ying Quispe DO Work Phone: [facility] 05-12-2021 09:36-0500 Body mass index (BMI) [Ratio] 25.45 kg/m2 Ying Quispe DO Work Phone: [facility] 05-12-2021 09:36-0500 Body temperature 98.6 [degF] Ying Quispe DO Work Phone: [facility] 05-12-2021 09:36-0500 Body weight 82.19 kg Ying Quispe DO Work Phone: [facility] 05-12-2021 09:36-0500 Diastolic blood pressure 53 mm[Hg] Ying Quispe DO Work Phone: [facility] 05-12-2021 09:36-0500 Heart rate 78 /min Ying Quispe DO Work Phone: [facility] 05-12-2021 09:36-0500 Respiratory rate 16 /min Ying Quispe DO Work Phone: [facility] 05-12-2021 09:36-0500 Systolic blood pressure 93 mm[Hg] Ying Quispe DO Work Phone: [facility] 09-29-2020 13:32-0400 Diastolic blood pressure 85 mm[Hg] Bambi Huynh MD Work Phone: [facility] 09-29-2020 13:32-0400 Heart rate 74 /min Bambi Huynh MD Work Phone: [facility] 09-29-2020 13:32-0400 SaO2% (BldA) [Mass fraction] 93 % Bambi Huynh MD Work Phone: [facility] 09-29-2020 13:32-0400 Systolic blood pressure 138 mm[Hg] Bambi Huynh MD Work Phone: [facility] 09-29-2020 13:21-0400 Body height 182.9 cm Bambi Huynh MD Work Phone: [facility] 09-29-2020 13:21-0400 Body mass index (BMI) [Ratio] 26.65 kg/m2 Bambi Huynh MD Work Phone: [facility] 09-29-2020 13:21-0400 Body temperature 97.3 [degF] Bambi Huynh MD Work Phone: [facility] 09-29-2020 13:21-0400 Body weight 89.13 kg Bambi Huynh MD Work Phone: [facility] 12-06-2019 11:08-0400 BMI (Body Mass Index) 26.04 kg/m2 Rebeca [facility] 12-06-2019 11:08-0400 Body Temperature 98.8 [degF] [facility] 12-06-2019 11:08-0400 Body weight 87.09 kg [facility] 12-06-2019 11:08-0400 Height 182.9 cm [facility] 12-06-2019 11:08-0400 Pulse (Heart Rate) 80 /min [facility] 12-06-2019 11:08-0400 Pulse Oximetry 96 % [facility] 12-06-2019 11:08-0400 Respiratory Rate 18 /min [facility] 03-25-2019 14:16-0400 BMI (Body Mass Index) 27.17 kg/m2 [facility] 03-25-2019 14:16-0400 Body Temperature 98.01 [degF] [facility] 03-25-2019 14:16-0400 Body weight 90.[address] [facility] 03-25-2019 14:16-0400 BP Diastolic 83 mm[Hg] [facility] 03-25-2019 14:16-0400 BP Systolic 135 mm[Hg] [facility] 03-25-2019 14:16-0400 Height 182.[address] [facility] 03-25-2019 14:16-0400 Pulse (Heart Rate) 82 /min [facility] 03-25-2019 14:16-0400 Pulse Oximetry 98 % [facility]-25-2019 14:16-0400 Respiratory Rate 17 /min [facility] 01-14-2019 13:48-0400 BMI (Body Mass Index) 26.28 kg/m2 Bambi Huynh [facility] 01-14-2019 13:48-0400 Body Temperature 98.4 [degF] Bambi Huynh [facility] 01-14-2019 13:48-0400 Body weight 87.91 kg [facility] 01-14-2019 13:48-0400 BP Diastolic 76 mm[Hg] [facility] 01-14-2019 13:48-0400 BP Systolic 130 mm[Hg] [facility] 01-14-2019 13:48-0400 Pulse (Heart Rate) 75 /min [facility] 01-14-2019 13:48-0400 Pulse Oximetry 96 % [facility] 10-12-2018 15:25-0400 BMI (Body Mass Index) 26.62 kg/m2 [facility] 10-12-2018 15:25-0400 Body Temperature 97.81 [degF] [facility] 10-12-2018 15:25-0400 BP Diastolic 91 mm[Hg] [facility] 10-12-2018 15:25-0400 BP Systolic 168 mm[Hg] [facility] 10-12-2018 15:25-0400 Height 182.9 cm [facility] 10-12-2018 15:25-0400 Pulse (Heart Rate) 78 /min [facility] 10-12-2018 15:25-0400 Pulse Oximetry 98 % [facility] 10-12-2018 15:25-0400 Weight 89.04 kg [facility] 09-15-2018 11:11-0400 Body Temperature 97.59 [degF] [facility] 09-15-2018 11:11-0400 BP Diastolic 79 mm[Hg] [facility] 09-15-2018 11:11-0400 BP Systolic 133 mm[Hg] [facility] 09-15-2018 11:11-0400 Pulse (Heart Rate) 61 /min [facility] 09-15-2018 11:11-0400 P[facility] 96 % [facility] 09-15-2018 11:11-0400 Respiratory Rate 16 /min [facility] 09-15-2018 01:32-0400 BMI (Body Mass Index) 26.76 kg/m2 [facility] 09-15-2018 01:32-0400 Height 182.9 cm [facility] 09-15-2018 01:32-0400 Weight 89.5 kg [facility] 09-14-2018 20:37-0400 Body Temperature 98.8 [degF] [facility] 09-14-2018 20:37-0400 BP Diastolic 83 mm[Hg] [facility] 09-14-2018 20:37-0400 BP Systolic 151 mm[Hg] [facility] 09-14-2018 20:37-0400 Pulse (Heart Rate) 82 /min [facility] 09-14-2018 20:37-0400 Pulse Oximetry 96 % [facility] 09-14-2018 20:37-0400 Respiratory Rate 20 /min [facility] 09-14-2018 17:33-0400 BMI (Body Mass Index) 26.45 kg/m2 [facility] 09-14-2018 17:33-0400 Height 182.9 cm [facility] 09-14-2018 17:33-0400 Weight 88.45 kg [facility] 09-14-2018 12:51-0400 BMI (Body Mass Index) 27 kg/m2 [facility] 12:51-0400 Body Temperature 98.91 [degF] [facility] 09-14-2018 12:51-0400 BP Diastolic 86 mm[Hg] [facility] 09-14-2018 12:51-0400 BP Systolic 132 mm[Hg] [facility] 09-14-2018 12:51-0400 Height 182.[address] [facility] 09-14-2018 12:51-0400 Pulse (Heart Rate) 94 /min [facility] 09-14-2018 12:51-0400 Pulse Oximetry 94 % [facility] 09-14-2018 12:51-0400 Weight 90[address] [facility] 2018 07:36-0500 BMI (Body Mass Index) 27.08 kg/m2 Bambi Huynh [facility] 2018 07:36-0500 Body Temperature 98.1 [degF] Bambi [facility] 2018 07:36-0500 BP Diastolic 79 mm[Hg] [facility] 2018 07:36-0500 BP Systolic 129 mm[Hg] [facility] 2018 07:36-0500 Height 182.[address] [facility] 2018 07:36-0500 Pulse (Heart Rate) 79 /min [facility] 2018 07:36-0500 Pulse Oximetry 98 % [facility] 2018 07:36-0500 Weight 90[address] [facility] 09-05-2017 14:41-0400 BMI (Body Mass Index) 26.45 kg/m2 [facility]-05-[facility] 14:41-0400 Height 182.9 cm [facility] 09-05-2017 14:41-0400 Weight 88.45 kg [facility] 07-03-2017 07:48-0500 BMI (Body Mass Index) 26.89 kg/m2 [facility] 07-03-2017 07:48-0500 Body Temperature 98.1 [degF] [facility] Work [facility]: 07-03-2017 07:48-0500 BP Diastolic 83 mm[Hg] [facility] Work Phone: 07-03-2017 07:48-0500 BP Systolic 149 mm[Hg] [facility] Work [facility]: 07-03-2017 07:48-0500 Height 182.[address] [facility] Work Phone: 07-03-2017 07:48-0500 Pulse (Heart Rate) 88 /min Bambi Huynh [facility] Work Phone: 07-03-2017 07:48-0500 Pulse Oximetry 98 % Bambi Huynh [facility] Work Phone: 07-03-2017 07:48-0500 Respiratory Rate 14 /min Bambi Huynh [facility] Work Phone: 07-03-2017 07:48-0500 Weight 89.95 kg Bambi Huynh [facility] Work Phone: Encounters Encounter Date Encounter Type Care Provider Facility Start: 10-30-2024 ambulatory [facility] Facility:[facility] Start: 09-23-2024 Dr. Millie Massey MD [facility] Start: 09-23-2024 End: 09-23-2024 ambulatory [facility] Facility:[facility] Start: 09-18-2024 End: 09-18-[address] Ethan Rodriguez MD Work Phone: [facility] Work Phone: Start: 09-18-2024 End: 09-18-2024 Dr. Millie Massey MD [facility] Start: 09-18-2024 End: 09-18-2024 ambulatory [facility] Facility:[facility] Start: 09-16-2024 End: 09-16-[address] Ethan Rodriguez MD Work Phone: [facility] Work Phone: Start: 09-16-2024 End: 09-16-2024 Dr. Millie Massey MD -[facility] Start: 09-16-2024 End: 09-16-2024 ambulatory [facility] Facility:[facility] Start: 09-15-2024 End: 09-15-2024 Dr. Ethan Rodriguez MD Work Phone: -Emergency Department Work Phone: Start: 09-15-2024 End: 09-15-2024 Emergency department patient visit Dr. Ethan Rodriguez MD Work Phone: [facility] Work Phone: Start: 09-09-2024 Dr. Millie Massey MD [facility] Start: 09-09-2024 End: 09-09-2024 ambulatory Millie Gudla Facility:[facility] Start: 09-02-2024 End: 09-02-2024 Dr. Millie Massey MD -[facility] Start: 09-02-2024 End: 09-02-2024 ambulatory Millie Gudia OLS Facility:[facility] Start: 08-31-2024 End: 08-31-2024 Millie Massey MD -[facility] Work Phone: Start: 08-31-2024 End: 08-31-[address] Ethan Rodriguez MD Work Phone: [facility] Work Phone: Start: 08-29-2024 ambulatory Millie Gudla OLS Facili ty:[facility] Start: 08-29-2024 Dr. Millie Massey MD [facility] Start: 08-28-2024 End: 08-28-[address] Ethan Rodriguez MD Work Phone: [facility] Work Phone: Start: 08-28-2024 End: 08-28-2024 Dr. Millie Massey MD -[facility] Start: 08-28-2024 End: 08-28-2024 ambulatory Millie Gudla OLS Facility:[facility] Start: 08-26-2024 End: 08-26-[address] Ethan Rodriguez MD Work Phone: [facility] Work Phone: Start: 08-26-2024 End: 08-26-2024 Dr. Millie Massey MD -[facility] Start: 08-26-2024 End: 08-26-2024 ambulatory Millie Gudia EDGARD Facility:[facility] Start: 08-23-2024 End: 08-23-2024 Documentation procedure Sol Huerta RN [facility] Start: 08-22-2024 End: 08-22-[address] Ethan Rodriguez MD Work Phone: [facility] Work Phone: Start: 08-22-2024 End: 08-22-2024 Dr. Millie Massey MD -[facility] Start: 08-22-2024 End: 08-22-2024 ambulatory Millie RENE Facility:[facility] Start: 08-19-2024 ambulatory Millie RENE Facili ty:[facility] Start: 08-19-2024 Dr. Millie Massey MD [facility] Start: 08-17-2024 Dr. Nikolas Magaña MD [facility] Work Phone: Start: 08-16-2024 Dr. Nikolas Magaña MD [facility] Work Phone: Start: 08-15-2024 Dr. Tevin Nicholas MD -[facility] Start: 08-15-2024 End: 08-15-2024 ambulatory Casi Topete RN [facility] Start: 08-15-2024 Svetlana [facility] Start: 08-14-2024 ambulatory Angie Torres Facil ity:[facility] Start: 08-14-2024 End: 08-17-2024 Evaluation and management of inpatient Dr. Ethan Rodriguez MD Work Phone: [facility] Work Phone: Start: 08-14-2024 End: 08-17-2024 Dr. Nikolas Magaña MD -[facility] Work Phone: Start: 08-14-2024 End: 08-14-2024 ambulatory Millie RENE Facility:[facility] Start: 08-13-2024 Dr. Nikolas Magaña MD [facility] Work Phone: Start: 08-12-2024 Dr. Nikolas Magaña MD [facility] Work Phone: Start: 08-11-2024 Dr. Judd Galvin DO [facility] Work Phone: Start: 08-10-2024 Dr. Judd Galvin DO [facility] Work Phone: Start: 08-09-2024 Dr. Judd Galvin DO [facility] Work Phone: Start: 08-08-2024 Nick Friend DO -[facility] Start: 08-08-2024 Dr. Judd Galvin DO [facility] Work Phone: Start: 08-07-2024 Dr. Judd Galvin DO [facility] Work Phone: Start: 08-06-2024 Nick Friend DO -[facility] Start: 08-06-2024 Dr. Judd Galvin DO [facility] Work Phone: Start: 08-05-2024 Dr. Ivone mccarty MD [facility] Work Phone: Start: 08-04-2024 Dr. Ivone mccarty MD [facility] Work Phone: Start: 08-03-2024 Dr. Mar chang MD [facility] Work Phone: Start: 08-03-2024 Nick Friend DO -[facility] Start: 08-02-2024 Nick Friend DO -[facility] Start: 08-02-2024 Dr. Mar chang MD [facility] Work Phone: Start: 08-01-2024 Nick Friend DO -[facility] Start: 08-01-2024 Dr. Kvng [facility] Work Phone: Start: 07-31-2024 ambulatory Janikkos Melissa Facil ity:[facility] Start: 07-31-2024 End: 08-13-2024 Evaluation and management of inpatient Jayaprakas Melissa Facility:[facility] Start: 07-31-2024 End: 08-13-2024 Dr. Nikolas Magaña MD -[facility] Work Phone: Start: 07-30-2024 ambulatory Millie RENE Facili ty:[facility] Start: 07-30-2024 Dr. Millie Massey MD -[facility] Start: 07-29-2024 Dr. Mar chang MD -[facility] Work Phone: Start: 07-28-2024 Dr. Remedios Kessler DO -[facility] Work Phone: Start: 07-27-2024 Dr. Remedios Kessler DO [facility] Work Phone: Start: 07-26-2024 Nick Gallegos DO -[facility] Start: 07-25-2024 Dr. Remedios Kessler DO -[facility] Work Phone: Start: 07-24-2024 Nickjeovanny Gallegos DO -[facility] Start: 07-24-2024 Dr. Remedios Kessler DO [facility] Work Phone: Start: 07-23-2024 Nickjeovanny Gallegos DO -[facility] Start: 07-23-2024 ambulatory Judd Celiamary Facility:[facility] Start: 07-23-2024 End: 07-29-2024 Evaluation and management of inpatient Jayaprakas Melissa Facility:[facility] Start: 07-23-2024 End: 07-29-2024 Dr. Mar Mead MD -[facility] Work Phone: Start: 07-18-2024 End: 07-18-2024 Emergency department patient visit Sheldon Toribio Facility:[facility] Start: 07-18-2024 End: 07-18-2024 Dr. Sheldon Toribio MD -Emergency Departmen t Work Phone: Start: 07-18-2024 End: 07-18-2024 ambulatory Adilene Rainey Facility:[facility] Start: 07-03-2024 End: 07-03-2024 ambulatory Codie Garcia RN [facility] Comment on above: High Risk Outreach f or High Risk Start: 07-02-2024 End: 07-02-2024 ambulatory Codie Garcia RN [facility] Start: 06-25-2024 End: 06-25-2024 Dr. Millie Massey MD -[facility] Start: 06-24-2024 End: 06-25-2024 ambulatory Millie Wileya EDGARD Facility:[facility] Start: 06-24-2024 Dr. Millie Massey MD -[facility] Start: 06-21-2024 End: 06-21-2024 Dr. Millie Massey MD [facility] Start: 06-21-2024 End: 06-21-2024 ambulatory Millie Saurabha EDGARD Facility:[facility] Start: 06-18-2024 ambulatory [facility] Start: 06-07-2024 End: 06-07-2024 Dr. [address] Massey MD [facility] Start: 06-07-2024 End: 06-07-2024 ambulatory Millie Alydla EDGARD Facility:[facility] Start: 06-06-2024 End: 06-06-2024 Dr. Millie Massey MD [facility] Start: 06-05-2024 End: 06-05-2024 Chioma BRIGGS -[facility] Work Phone: Start: 06-05-2024 End: 06-06-2024 ambulatory Millie Gudla OLS Facility:[facility] Start: 06-03-2024 End: 06-03-20[address] Dr. [address] Massey MD [facility] Start: 06-03-2024 End: 06-03-2024 ambulatory Millie Gudia EDGARD Facility:[facility] Start: 05-27-2024 End: 05-27-2024 Dr. Millei Massey MD -[facility] Start: 05-27-2024 End: 05-27-2024 ambulatory Millie RENE Facility:[facility] Start: 05-23-2024 End: 05-23-2024 Orders Only Edenilson Guerra DO Work Phone: [facility] Comment on above: Abdominal aortic ane urysm (AAA) without rupture, unspecified part (HCC) (Primary Dx) Start: 05-03-2024 ambulatory Jeffery Veloz Facility :[facility] Start: 04-30-2024 End: 04-30-2024 Dr. Jeffery Veloz MD -[facility] Work Phone: Start: 04-30-2024 End: 04-30-2024 ambulatory Ethan Rodriguez Facility:[facility] Start: 04-24-2024 ambulatory Ethan RENE Facili ty:[facility] Start: 04-24-2024 Ethan Rodriguez [facility] Start: 04-17-2024 ambulatory Angie Torres Facil ity:[facility] Start: 04-17-2024 End: 04-17-2024 Dr. Angie Torres MD -Laboratory, Specimen Work Phone: Start: 04-17-2024 End: 04-17-2024 ambulatory Ethan RENE Facility:[facility] Start: 04-12-2024 End: 04-12-2024 ambulatory Millie RENE Facility:[facility] Start: 04-11-2024 End: 04-11-2024 Emergency department patient visit Ethan Rodriguez Facility:[facility] Start: 04-05-2024 End: 04-05-2024 Documentation procedure Corrina Dawn MA [facility] Start: 04-05-2024 End: 04-05-2024 Refill Ying Quispe DO Work Phone: [facility] Start: 04-04-2024 End: 04-04-2024 Postop follow up visit related to original px Cate Contreras CLIMATOLOGY PROFESSOR Work Phone: [facility] Comment on above: 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) (Primary Dx) Start: 04-04-2024 End: 04-04-2024 [facility] Start: 03-26-2024 ambulatory Ethan RENE Facili ty:[facility] Start: 03-21-2024 ambulatory Ethan Rodriguez Facility:[facility] Start: 03-12-2024 End: 03-20-2024 Evaluation and management of inpatient YING [facility] Start: 03-11-2024 End: 03-12-2024 Emergency department patient visit Ethan Rodriguez Facility:[facility] Start: 02-29-2024 End: 02-29-2024 ambulatory Ethan RENE Facility:[facility] Start: 02-16-2024 End: 02-16-2024 Refill Yingsam Quispe DO Work Phone: [facility] Comment on above: Hypothyroidism, unsp ecified type Start: 01-19-2024 End: 02-25-2024 Evaluation and management of inpatient YING [facility] Start: 01-17-2024 End: 01-17-2024 Documentation procedure Rafaela Garcias RN [facility] Start: 01-11-2024 End: 01-11-2024 Documentation procedure Rafaela Garcias RN [facility] Start: 01-11-2024 [facility] Start: 01-09-2024 End: 01-09-2024 Postop follow up visit related to original px Sarath Rey MD Work Phone: [facility] Comment on above: 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) (Primary Dx) Start: 01-09-2024 End: 01-09[facility] Start: 01-09-2024 End: 01-09-2024 ambulatory SARATH REY [facility] Start: 01-08-2024 End: 01-08-2024 Refill Ray Guido RN [facility] Comment on above: Medication Refill 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) (Primary Dx); Elevated serum creatinine Start: 01-05-2024 End: 01-05-2024 Orders Only Ray Guido RN [facility] Comment on above: 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) (Primary Dx); Postoperative leak Start: 01-03-2024 End: 01-03-2024 Anticoagulant drug monitoring Michelle Littlejohn RPh,PharmD Work Phone: [facility] Start: 01-03-2024 End: 01-03-2024 Patient encounter procedure Lita Gu MD Work Phone: [facility] Comment on above: Acute deep vein thro mbosis (DVT) of axillary vein of left upper extremity (HCC) (Primary Dx) Start: 01-03-2024 End: 01-03-2024 Home visit Makenzie Garza RN [facility] Comment on above: SN HH NON-OASIS AGEN CY DISCHARGE Start: 01-03-2024 End: 01-08-2024 ambulatory [facility] Start: 01-02-2024 End: 01-02-2024 Home visit Makenzie Garza RN [facility] Comment on above: TELEPHONE ENCOUNTER Start: 12-27-2023 End: 12-27-2023 Anticoagulant drug monitoring Michelle Littlejohn RPh,PharmD Work Phone: [facility] Start: 12-27-2023 End: 12-27-2023 Patient encounter procedure Lita Gu MD Work Phone: [facility] Comment on above: Acute deep vein thro mbosis (DVT) of axillary vein of left upper extremity (HCC) (Primary Dx) Start: 12-27-2023 End: 12-28-2023 Home visit Nahid Lindsay PT [facility] Comment on above: PT NON-OASIS AGENCY DISCHARGE CIRCUIT DESIGN ENGINEER HH ROUTINE Start: 12-27-2023 End: 12-31-2023 ambulatory LITA GU [facility] Start: 12-26-2023 End: 12-26-2023 Postop follow up visit related to original px Sarath Rey MD Work Phone: [facility] Comment on above: PVD (peripheral vasc ular disease) (HCC) (Primary Dx); 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); Renal insufficiency Start: 12-26-2023 End: 12-26-2023 ambulatory SARATH REY [facility] Start: 12-25-2023 End: 12-25-2023 Home visit Nahid Wheeler [facility] Comment on above: RECYCLING TECHNICIAN ROUTINE VISIT Start: 12-21-2023 End: 12-25-2023 Transcribe Orders Michelle Littlejohn RPh,PharmD Work Phone: [facility] Comment on above: Acute deep vein thro mbosis (DVT) of axillary vein of left upper extremity (HCC) (Primary Dx) Start: 12-20-2023 End: 12-20-2023 Home visit Adilene Albright CIRCUIT DESIGN ENGINEER [facility] Comment on above: CIRCUIT DESIGN ENGINEER ROUTINE RECYCLING TECHNICIAN ROUTINE VISIT Start: 12-20-2023 ambulatory [facility] Start: 12-18-2023 End: 12-18-2023 Home visit Ernestina Moody [facility] Comment on above: RECYCLING TECHNICIAN ROUTINE VISIT Start: 12-14-2023 End: 12-14-2023 Home visit Ernestina Moody [facility] Comment on above: RECYCLING TECHNICIAN ROUTINE VISIT Start: 12-13-2023 End: 12-13-2023 Anticoagulant drug monitoring Michelle Littlejohn RPh,PharmD Work Phone: [facility] Start: 12-13-2023 End: 12-13-2023 Patient encounter procedure Lita Gu MD Work Phone: [facility] Comment on above: Acute deep vein thro mbosis (DVT) of axillary vein of left upper extremity (HCC) (Primary Dx) Start: 12-13-2023 End: 12-13-2023 Home visit Makenzie Garza RN [facility] Comment on above: SN ROUTINE VISIT RECYCLING TECHNICIAN ROUTINE VISIT Start: 12-13-2023 End: 12-17-2023 ambulatory YING QUISPE [facility] Start: 12-11-2023 End: 12-11-2023 ambulatory TYLOR KRUGER [facility] Start: 12-10-2023 End: 12-10-2023 Home visit Ernestina Moody [facility] Comment on above: CASE COMMUNICATION Start: 12-06-2023 End: 12-10-2023 Refill Tylor Kruger MD Work Phone: [facility] Comment on above: Medication Refill Acute deep vein thro mbosis (DVT) of axillary vein of left upper extremity (HCC) (Primary Dx) [facility] ROUTINE VISIT PT REASSESSMENT Start: 12-05-2023 End: 12-05-2023 Home visit Ernestina Moody [facility] Comment on above: RECYCLING TECHNICIAN ROUTINE VISIT Start: 11-29-2023 End: 11-29-2023 Anticoagulant drug monitoring Adilene Bryan [facility],PharmD Work Phone: [facility] Start: 11-29-2023 End: 11-29-2023 Patient encounter procedure Lita Gu MD Work Phone: [facility] Comment on above: Acute deep vein thro mbosis (DVT) of axillary vein of left upper extremity (HCC) (Primary Dx) Start: 11-29-2023 End: 11-29-2023 Home visit Ernestina Moody [facility] Comment on above: RECYCLING TECHNICIAN ROUTINE VISIT CIRCUIT DESIGN ENGINEER ROUTINE OT NON-OASIS/DISCIPL INE DISCHARGE Start: 11-29-2023 End: 12-03-2023 ambulatory ADILENE BRYAN [facility] Start: 11-28-2023 End: 11-28-2023 [facility] Start: 11-28-2023 End: 11-28-2023 Home visit Ernestina Moody [facility] Comment on above: RECYCLING TECHNICIAN ROUTINE VISIT Start: 11-27-2023 End: 11-27-2023 Home visit Giovany MONDRAGON [facility] Comment on above: COELMAN ROUTINE VISIT Start: 11-24-2023 End: 11-24-2023 Home visit Giovany Princeez MONDRAGON [facility] Comment on above: COLEMAN ROUTINE VISIT Start: 11-23-2023 End: 11-23-2023 Office outpatient visit 25 minutes Ying Quispe DO Work Phone: [facility] Comment on above: Orthostatic hypotens ion (Primary Dx); General weakness Start: 11-23-2023 End: 11-23-2023 ambulatory YING QUISPE [facility] Start: 11-23-2023 End: 11-23-2023 Home visit Giovanyjett Morrisonez ALANNA [facility] Comment on above: COLEMAN ROUTINE VISIT RECYCLING TECHNICIAN ROUTINE VISIT Start: 11-22-2023 End: 11-22-2023 Office outpatient visit 15 minutes [facility] Work Phone: [facility] Comment on above: Ischemia of toe (Vikki farrukh Dx); PVD (peripheral vascular disease) (HCC) Start: 11-22-2023 End: 11-22-2023 ambulatory [facility] Start: 11-21-2023 End: 11-25-2023 Orders Only Tylor Kruger MD Work Phone: [facility] Comment on above: PVD (peripheral vasc ular disease) (HCC) (Primary Dx) Acute deep vein thro mbosis (DVT) of axillary vein of left upper extremity (HCC) (Primary Dx) CIRCUIT DESIGN ENGINEER HH ROUTINE RECYCLING TECHNICIAN ROUTINE VISIT Start: 11-20-2023 End: 11-20-2023 Refill Ying Quispe DO Work Phone: [facility] Start: 11-17-2023 End: 11-17-2023 Home visit Giovanyjett Morrisonez ALANNA [facility] Comment on above: COLEMAN ROUTINE VISIT Start: 11-17-2023 End: 11-17-2023 Office outpatient visit 25 minutes Tylor Kruger MD Work Phone: [facility] Comment on above: 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) (Primary Dx); PVD (peripheral vascular disease) (HCC) Start: 11-17-2023 End: 11-20-2023 ambulatory [facility] Start: 11-16-2023 End: 11-16-2023 Home visit Ernestina Moody [facility] Comment on above: RECYCLING TECHNICIAN ROUTINE VISIT Start: 11-16-2023 End: 11-16-2023 ambulatory [facility] Start: 11-14-2023 End: 11-14-2023 Anticoagulant drug monitoring Adilene Bryan [facility],PharmD Work Phone: [facility] Start: 11-14-2023 End: 11-14-2023 Patient encounter procedure Lita Gu MD Work Phone: [facility] Comment on above: Acute deep vein thro mbosis (DVT) of axillary vein of left upper extremity (HCC) (Primary Dx) Start: 11-14-2023 End: 11-14-2023 Home visit Adilene Albright [facility] Comment on above: CIRCUIT DESIGN ENGINEER ROUTINE PT INITIAL EVALUATIO N Start: 11-14-2023 End: 11-18-2023 ambulatory ADILENE BRYAN [facility] Start: 11-13-2023 End: 11-13-2023 Home visit Giovany Montalvo [facility] Comment on above: COLEMAN ROUTINE VISIT Start: 11-08-2023 End: 11-08-2023 Anticoagulant drug monitoring Michelle Littlejohn [facility],PharmD Work Phone: [facility] Start: 11-08-2023 End: 11-08-2023 Patient encounter procedure Lita Gu MD Work Phone: [facility] Comment on above: Acute deep vein thro mbosis (DVT) of axillary vein of left upper extremity (HCC) (Primary Dx) Start: 11-08-2023 End: 11-12-2023 ambulatory YING SWEENEY [facility] Start: 11-08-2023 End: 11-08-2023 Home visit Antonietta Monk [facility] Comment on above: CIRCUIT DESIGN ENGINEER HH ROUTINE OT INITIAL EVALUATIO N Start: 11-06-2023 End: 11-06-2023 Home visit Makenzie Garza RN [facility] Comment on above: SN HH NON-OASIS SOC Start: 11-06-2023 ambulatory LITA GU [facility] Start: 11-03-2023 Documentation procedure Rafaela Garcias RN [facility] Start: 11-03-2023 Home visit Justine Kruger [facility] Comment on above: CASE COMMUNICATION Start: 11-02-2023 ambulatory BRONWYN N EDDIER [facility] Comment on above: Hypertension, unspec ified type (Primary Dx); Orthostatic hypotension; TUTU (acute kidney injury) (HCC); Debility; Ruptured abdominal aortic aneurysm (AAA), unspecified part (HCC); Aftercare following surgery of the circulatory system Start: 11-01-2023 End: 11-01-2023 Postop follow up visit related to original px Cate Contreras CLIMATOLOGY PROFESSOR Work Phone: [facility] Comment on above: 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) (Primary Dx) Start: 11-01-2023 End: 11-01-2023 ambulatory CATE CONTRERAS [facility] Start: 11-01-2023 End: 01-03-2024 ambulatory PCP UNKNOWN PHYSICIAN [facility] Start: 10-31-2023 ambulatory PCP UNKNOWN PHYSICIAN [facility] Start: 10-30-2023 ambulatory PCP UNKNOWN PHYSICIAN [facility] Start: 10-29-2023 ambulatory PCP UNKNOWN PHYSICIAN [facility] Start: 10-29-2023 ambulatory PCP UNKNOWN PHYSICIAN [facility] Start: 10-28-2023 ambulatory BRONWYN N [facility] Start: 10-27-2023 ambulatory BRONWYN N [facility] Start: 10-26-2023 ambulatory PCP UNKNOWN PHYSICIAN [facility] Start: 10-25-2023 ambulatory PCP UNKNOWN PHYSICIAN [facility] Start: 10-25-2023 ambulatory BRONWYN N [facility] Start: 10-24-2023 ambulatory BRONWYN N [facility] Start: 10-23-2023 ambulatory BRONWYN MONTAGUESHITAL [facility] Start: 10-23-2023 Encounter for genera l adult medical examination without abnormal findings FRANK~[id number] ALLEN MARIE [facility] Start: 10-21-2023 ambulatory PCP UNKNOWN PHYSICIAN [facility] Start: 10-11-2023 Documentation procedure Yakelin Iqbal MA [facility] Comment on above: Ruptured abdominal a ortic aneurysm (AAA), unspecified part (HCC) (Primary Dx) Start: 10-09-2023 End: 10-20-2023 Evaluation and management of inpatient [facility] Start: 10-09-2023 End: 10-09-2023 [facility] Start: 10-09-2023 End: 10-09-2023 ambulatory THERESA MCGOWAN [facility] Start: 10-09-2023 ambulatory YING QUISPE [facility] Start: 09-28-2023 Refill Ying Pascual [facility] DO Work Phone: [facility] Comment on above: Hypothyroidism, unsp ecified type Start: 09-26-2023 End: 09-26-2023 Office outpatient visit 15 minutes Felicity Olson CLIMATOLOGY PROFESSOR Work Phone: [facility] Comment on above: Acute right-sided lo w back pain without sciatica (Primary Dx) Start: 09-26-2023 End: 09-26-2023 ambulatory FELICITY OLSON [facility] Start: 09-07-2023 End: 09-07-2023 Anticoagulant drug monitoring Michelle Littlejohn RPh,PharmD Work Phone: [facility] Start: 09-07-2023 End: 09-07-2023 Patient encounter procedure Lita uG MD Work Phone: [facility] Comment on above: Acute deep vein thro mbosis (DVT) of axillary vein of left upper extremity (HCC) (Primary Dx) Start: 09-07-2023 End: 09-11-2023 ambulatory [facility] Start: 08-24-2023 End: 08-24-2023 Office outpatient new 30 minutes Yfn Puckett DPM Work Phone: [facility] Comment on above: Weakness of right lo wer extremity (Primary Dx); Lumbosacral radiculopathy; Paresthesias Start: 08-24-2023 End: 08-24-2023 ambulatory THERESA BOYKIN [facility] Start: 08-10-2023 End: 08-10-2023 Anticoagulant drug monitoring Michelle Littlejohn RPh,PharmD Work Phone: [facility] Start: 08-10-2023 End: 08-10-2023 Patient encounter procedure Lita Gu MD Work Phone: [facility] Comment on above: Acute deep vein thro mbosis (DVT) of axillary vein of left upper extremity (HCC) (Primary Dx) Start: 08-10-2023 End: 08-14-2023 ambulatory [facility] Start: 07-18-2023 End: 07-18-2023 Office outpatient visit 25 minutes Yfn Puckett DPM Work Phone: [facility] Comment on above: Lumbosacral radiculo yanna (Primary Dx) Start: 2023 End: 2023 ambulatory YFN PUCKETT JR. [facility] Start: 07-13-2023 End: 07-13-2023 Anticoagulant drug monitoring Justine Hodges RPh,PharmD Work Phone: [facility] Start: 07-13-2023 End: 07-13-2023 Patient encounter procedure Lita Gu MD Work Phone: [facility] Comment on above: Acute deep vein thro mbosis (DVT) of axillary vein of left upper extremity (HCC) (Primary Dx) Start: 07-13-2023 End: 2023 ambulatory [facility] Start: 07-04-2023 End: 07-04-2023 ambulatory YFN PUCKETT JR. [facility] Start: 07-04-2023 End: 07-04-2023 Office outpatient new 30 minutes Yfn Puckett DPM Work Phone: [facility] Comment on above: Right-sided low back pain with right-sided sciatica, unspecified chronicity (Primary Dx); Idiopathic peripheral neuropathy Start: 06-19-2023 Refill Stephanie Lozano RN [facility] Comment on above: History of deep veno us thrombosis Start: 06-07-2023 End: 06-07-2023 Anticoagulant drug monitoring Adilene Bryan RPh,PharmD Work Phone: [facility] Start: 06-07-2023 End: 06-07-2023 Patient encounter procedure Lita Gu MD Work Phone: [facility] Comment on above: Acute deep vein thro mbosis (DVT) of axillary vein of left upper extremity (HCC) (Primary Dx) Start: 05-23-2023 Refill Kenna Vigil RN [facility] Comment on above: History of deep veno us thrombosis Start: 05-03-2023 End: 05-03-2023 Anticoagulant drug monitoring Adilene Bryan RPh,PharmD Work Phone: [facility] Start: 05-03-2023 End: 05-03-2023 Patient encounter procedure Lita Gu MD Work Phone: [facility] Comment on above: Acute deep vein thro mbosis (DVT) of axillary vein of left upper extremity (HCC) (Primary Dx) Start: 04-24-2023 End: 04-24-2023 Office outpatient visit 15 minutes Ying Quispe DO Work Phone: [facility] Comment on above: Hypothyroidism, unsp ecified type (Primary Dx) Start: 04-05-2023 End: 04-05-2023 Anticoagulant drug monitoring Michelle Littlejohn RPh,PharmD Work Phone: [facility] Start: 04-05-2023 End: 04-05-2023 Patient encounter procedure Lita Gu MD Work Phone: [facility] Comment on above: Acute deep vein thro mbosis (DVT) of axillary vein of left upper extremity (HCC) (Primary Dx) Start: 03-08-2023 End: 03-08-2023 Anticoagulant drug monitoring Michelle Littlejohn RPh,PharmD Work Phone: [facility] Start: 03-08-2023 End: 03-08-2023 Patient encounter procedure Lita Gu MD Work Phone: [facility] Comment on above: Acute deep vein thro mbosis (DVT) of axillary vein of left upper extremity (HCC) (Primary Dx) Start: 02-15-2023 End: 02-15-2023 Anticoagulant drug monitoring Adilene Bryan RPh,PharmD Work Phone: [facility] Start: 02-15-2023 End: 02-15-2023 Patient encounter procedure iLta Gu MD Work Phone: [facility] Comment on above: Acute deep vein thro mbosis (DVT) of axillary vein of left upper extremity (HCC) (Primary Dx) Start: 02-13-2023 End: 02-13-2023 ambulatory YING QUISPE [facility] Start: 02-01-2023 End: 02-01-2023 Anticoagulant drug monitoring Michelle Littlejohn RPh,PharmD Work Phone: [facility] Start: 02-01-2023 End: 02-01-2023 Patient encounter procedure Lita Gu MD Work Phone: [facility] Comment on above: Acute deep vein thro mbosis (DVT) of axillary vein of left upper extremity (HCC) (Primary Dx) Start: 01-25-2023 End: 01-25-2023 Office outpatient visit 25 minutes Ying Quispe Work Phone: [facility] Comment on above: Hypothyroidism, unsp ecified type (Primary Dx); Familial hypercholesteremia; Encounter for screening mammogram for malignant neoplasm of breast Start: 01-16-2023 End: 01-16-2023 Anticoagulant drug monitoring Lavon Mcmullen RPh,PharmD Work Phone: [facility] Start: 01-16-2023 End: 01-16-2023 Patient encounter procedure Lita Gu MD Work Phone: [facility] Comment on above: Acute deep vein thro mbosis (DVT) of axillary vein of left upper extremity (HCC) (Primary Dx) Start: 01-09-2023 End: 01-09-2023 Anticoagulant drug monitoring Adilene Bryan RPh,PharmD Work Phone: [facility] Start: 01-09-2023 End: 01-09-2023 Patient encounter procedure Lita Gu MD Work Phone: [facility] Comment on above: Acute deep vein thro mbosis (DVT) of axillary vein of left upper extremity (HCC) (Primary Dx) Start: 01-02-2023 End: 01-02-2023 Anticoagulant drug monitoring Michelle Littlejohn [facility],PharmD Work Phone: [facility] Start: 01-02-2023 End: 01-02-2023 Patient encounter procedure Lita Gu MD Work Phone: [facility] Comment on above: Acute deep vein thro mbosis (DVT) of axillary vein of left upper extremity (HCC) (Primary Dx) Start: 12-26-2022 End: 12-26-2022 Anticoagulant drug monitoring Adilene Bryan RPh,PharmD Work Phone: [facility] Start: 12-26-2022 End: 12-26-2022 Patient encounter procedure Lita Gu MD Work Phone: [facility] Comment on above: Acute deep vein thro mbosis (DVT) of axillary vein of left upper extremity (HCC) (Primary Dx) Start: 12-19-2022 End: 12-19-2022 Anticoagulant drug monitoring Michelle Littlejohn [facility],PharmD Work Phone: [facility] Start: 12-19-2022 End: 12-19-2022 Patient encounter procedure Lita Gu MD Work Phone: [facility] Comment on above: Acute deep vein thro mbosis (DVT) of axillary vein of left upper extremity (HCC) (Primary Dx) Start: 12-12-2022 Refill Kenna Vigil RN [facility] Comment on above: History of deep veno us thrombosis (Primary Dx) Start: 12-12-2022 End: 12-12-2022 Office outpatient visit 25 minutes Lita Gu MD Work Phone: [facility] Comment on above: History of deep veno us thrombosis (Primary Dx); Reactive lymphadenopathy; Factor V Leiden mutation (HCC) Start: 12-01-2022 End: 12-01-2022 Clinical Support Jennifer Hernandez MA [facility] Comment on above: Hyperlipidemia, unsp ecified hyperlipidemia type [E78.5] (Primary Dx) Start: 11-28-2022 End: 11-28-2022 Office outpatient visit 25 minutes Ying Quispe DO Work Phone: [facility] Comment on above: Acute non-recurrent maxillary sinusitis (Primary Dx); Familial hypercholesteremia Start: 10-25-2022 End: 10-25-2022 Office outpatient visit 25 minutes Lita Gu MD Work Phone: [facility] Comment on above: History of deep veno us thrombosis (Primary Dx); Axillary lymphadenopathy; Factor V Leiden mutation (HCC) Start: 10-23-2022 Refill Ying barber DO Work Phone: [facility] Comment on above: Hypothyroidism, unsp ecified type Start: 09-27-2022 Refill Kenna Vigil RN [facility] Comment on above: Acute deep vein thro mbosis (DVT) of axillary vein of left upper extremity (HCC) Start: 09-27-2022 End: 09-27-2022 Office outpatient visit 25 minutes Lita Gu MD Work Phone: [facility] Comment on above: History of deep veno us thrombosis (Primary Dx); Current smoker; Transaminitis; Factor V Leiden mutation (HCC); Lymphadenopathy; Decreased muscle strength; Lung nodule seen on imaging study Start: 09-20-2022 Coordination of care plan Amalia barbosa Patient Navigator Start: 09-16-2022 Refill Kenna Vigil RN [facility] Comment on above: Acute deep vein thro mbosis (DVT) of axillary vein of left upper extremity (HCC) Start: 08-15-2022 End: 08-15-2022 Office outpatient visit 25 minutes Ying Quispe DO Work Phone: [facility] Comment on above: Acute deep vein thro mbosis (DVT) of axillary vein of left upper extremity (HCC) (Primary Dx) Start: 07-06-2022 End: 07-06-2022 Office consultation new/estab patient 60 min Ying Quispe DO Work Phone: [facility] Comment on above: Current smoker (Prim howard Dx); Acute deep vein thrombosis (DVT) of axillary vein of left upper extremity (HCC); Cigarette smoker; Screening for malignant neoplasm of respiratory organ Start: 06-13-2022 End: 06-13-2022 Office outpatient visit 25 minutes Ying Quispe DO Work Phone: [facility] Comment on above: Acute deep vein thro mbosis (DVT) of axillary vein of left upper extremity (HCC) (Primary Dx) Start: 06-10-2022 End: 06-11-2022 Emergency department patient visit Shira Lopez MD Work Phone: [facility] Start: 06-06-2022 End: 06-06-2022 Office outpatient visit 25 minutes Ying Quispe DO Work Phone: [facility] Comment on above: Raynaud's phenomenon without gangrene (Primary Dx); Hypothyroidism, unspecified type Start: 04-06-2022 End: 04-06-2022 Office outpatient visit 15 minutes Ying Quispe DO Work Phone: [facility] Comment on above: Acute non-recurrent maxillary sinusitis (Primary Dx) Start: 01-05-2022 End: 01-05-2022 Office outpatient visit 15 minutes Felicity Olson CLIMATOLOGY PROFESSOR Work Phone: [facility] Comment on above: Toe infection (Prima ry Dx) Start: 11-25-2021 End: 11-25-2021 Office outpatient visit 15 minutes Yfn Puckett DPM Work Phone: [facility] Comment on above: Idiopathic periphera l neuropathy (Primary Dx) Start: 11-18-2021 End: 11-18-2021 Patient encounter status Yingsam Quispe DO Work Phone: [facility] Start: 11-18-2021 End: 11-18-2021 Periodic preventive med est patient 40-64yrs Yingsam Quispe DO Work Phone: [facility] Comment on above: Routine general medi cherrie examination at a health care facility (Primary Dx); Post-menopause; Encounter for screening mammogram for malignant neoplasm of breast; Colon cancer screening; Hypothyroidism, unspecified type Start: 11-05-2021 Refill Ying barber DO Work Phone: [facility] Comment on above: Hypothyroidism, unsp ecified type Start: 06-21-2021 End: 06-21-2021 Office outpatient visit 25 minutes Ying Quispe DO Work Phone: [facility] Comment on above: Acute non-recurrent maxillary sinusitis (Primary Dx) Start: 06-17-2021 End: 06-17-2021 Office outpatient new 30 minutes Yfn Puckett DPM Work Phone: [facility] Comment on above: Ganglion cyst of lef t foot (Primary Dx); Plantar fascial fibromatosis of left foot; Plantar keratosis, acquired Start: 05-12-2021 End: 05-12-2021 Office outpatient visit 25 minutes Ying Quisep DO Work Phone: [facility] Comment on above: Hypothyroidism, unsp ecified type (Primary Dx); Hyperlipidemia, unspecified hyperlipidemia type Start: 09-29-2020 End: 09-29-2020 Office outpatient visit 25 minutes Bambi Huynh MD Work Phone: [facility] Comment on above: Hypothyroidism, unsp ecified type (Primary Dx); Hip pain Start: 09-28-2020 End: 09-28-2020 Orders Only Bambi Huynh MD Work Phone: [facility] Comment on above: Hypothyroidism, unsp ecified type (Primary Dx) Start: 08-12-2020 End: 08-12-2020 Orders Only Daisy Cosme Work Phone: [facility] Start: 07-29-2020 Refill Bambi Huynh MD Work Phone: [facility] Start: 12-06-2019 End: 12-06-2019 Patient encounter procedure BAMBI HUYNH [facility] Start: 12-06-2019 End: 12-06-2019 Office outpatient visit 25 minutes Rebeca Kaur Work Phone: [facility] [place] Comment on above: Close Exposure to Co vid-19 Virus (Primary Dx); Cough; Wheezing; Cigarette Smoker; Upper respiratory tract infection, unspecified type Start: 05-01-2019 End: 05-01-2019 Patient encounter procedure Bambi Huynh Work Phone: [facility] Comment on above: Bilateral hip pain Start: 04-29-2019 End: 04-29-2019 Patient encounter procedure Bambi Huynh Work Phone: [facility] Comment on above: Bilateral hip pain Start: 04-24-2019 End: 04-24-2019 Patient encounter procedure Bambi Huynh Work Phone: [facility] Comment on above: Bilateral hip pain Start: 04-22-2019 End: 04-22-2019 Patient encounter procedure Bambi Huynh Work Phone: [facility] Comment on above: Bilateral hip pain Start: 04-17-2019 End: 04-17-2019 Patient encounter procedure Bambi Huynh Work Phone: [facility] Comment on above: Bilateral hip pain Start: 04-15-2019 End: 04-15-2019 Patient encounter procedure Bambi Huynh Work Phone: [facility] Comment on above: Bilateral hip pain Start: 04-08-2019 End: 04-08-2019 Patient encounter procedure Bambi Huynh Work Phone: [facility] Comment on above: Hip pain, bilateral; Bilateral hip pain Start: 03-25-2019 End: 03-25-2019 Office outpatient visit 15 minutes Bambi Lange Claus Work Phone: [facility] Comment on above: Hypothyroidism, unsp ecified type (Primary Dx); Hip pain, bilateral Start: 01-14-2019 End: 01-14-2019 Office outpatient visit 25 minutes Bambi Huynh Work Phone: [facility] Comment on above: Hypothyroidism, unsp ecified type (Primary Dx); Hyperlipidemia, unspecified hyperlipidemia type; Hip pain, bilateral Start: 11-06-2018 End: 11-06-2018 Postop follow up visit related to original px Mendez Roy Work Phone: [facility] Comment on above: Trochanteric bursiti s of right hip (Primary Dx) Start: 10-12-2018 End: 10-12-2018 Postop follow up visit related to original px Татьяна Jenkins Work Phone: [facility] Comment on above: S/P appendectomy (Pr imary Dx) Start: 09-14-2018 End: 09-15-2018 Emergency department patient visit Rosendo Tyson Work Phone: [facility] Comment on above: Acute appendicitis, unspecified acute appendicitis type (Primary Dx); Acute appendicitis with localized peritonitis and gangrene, without perforation or abscess Start: 09-14-2018 End: 09-14-2018 Emergency department patient visit Dewayne Barlow Work Phone: [facility] Comment on above: Acute appendicitis, unspecified acute appendicitis type (Primary Dx) Start: 09-14-2018 End: 09-14-2018 Documentation procedure Bambi Huynh Work Phone: [facility] Start: 09-14-2018 End: 09-14-2018 Office outpatient visit 25 minutes Bambi Nazario Maresinger Work Phone: [facility] Comment on above: Right lower quadrant abdominal pain (Primary Dx); Dysuria Start: 2018 End: 2018 Office outpatient visit 25 minutes Bambi Huynh Work Phone: [facility] Comment on above: Chronic left hip mehrdad n (Primary Dx); Hypothyroidism, unspecified type; Hyperlipidemia, unspecified hyperlipidemia type Start: 09-28-2017 Ambulatory Bambi Huynh Facility:[place] Start: 09-28-2017 End: 09-28-2017 Ambulatory Bambi Huynh Work Phone: [facility] Start: 09-05-2017 Office/outpatient vi sit, new, level 3 Bambi Huynh Work Phone: [facility] Start: 07-20-2017 Ambulatory Cuauhtemoc Barrios Work Phone: [facility] Start: 07-03-2017 Office/outpatient vi sit, est, level 3 Bambi Huynh Work Phone: [facility] Procedures Date Procedure Procedure Detail Performing Clinician Start: 09-16-2024 Mean corpuscular hemoglobin concentration determination Dr. Ethan Rodriguez MD Work Phone: Start: 09-16-2024 Platelet mean volume determination Dr. Karen Rodriguez MD Work Phone: Start: 09-15-2024 Plain chest X-ray Dr. Ethan Rodriguez MD Work Phone: Start: 09-15-2024 Blood count smear mcrscp w/mnl difrntl wbc count Dr. Ethan Rodriguez MD Work Phone: Start: 09-15-[address] Ethan Rodriguez MD Work Phone: Start: 09-15-2024 Mean corpuscular hemoglobin concentration determination Dr. Ethan Rodriguez MD Work Phone: Start: 09-15-2024 Nucleated red blood cell count procedure Dr. Ethan Rodriguez MD Work Phone: Start: 09-15-2024 Platelet mean volume determination Dr. Karen Rodriguez MD Work Phone: Start: 09-09-2024 Mean corpuscular hemoglobin concentration determination Dr. Ethan Rodriguez MD Work Phone: Start: 09-09-2024 Platelet mean volume determination Dr. Karen Rodriguez MD Work Phone: Start: 09-02-2024 Mean corpuscular hemoglobin concentration determination Dr. Ethan Rodriguez MD Work Phone: Start: 09-02-2024 Platelet mean volume determination Dr. Karen Rodriguez MD Work Phone: Start: 08-28-2024 Mean corpuscular hemoglobin concentration determination Dr. Ethan Rodriguez MD Work Phone: Start: 08-28-2024 Platelet mean volume determination Dr. Karen Rodriguez MD Work Phone: Start: 08-26-2024 Mean corpuscular hemoglobin concentration determination Dr. Ethan Rodriguez MD Work Phone: Start: 08-26-2024 Platelet mean volume determination Dr. Karen Rodriguez MD Work Phone: Start: 08-19-2024 Mean corpuscular hemoglobin concentration determination Dr. Ethan Rodriguez MD Work Phone: Start: 08-19-2024 Platelet mean volume determination Dr. Karen Rodriguez MD Work Phone: Start: 08-17-2024 Blood count smear mcrscp w/mnl difrntl wbc count Dr. Ethan Rodriguez MD Work Phone: Start: 08-17-[address] Ethan Rodriguez MD Work Phone: Start: 08-17-2024 Mean corpuscular hemoglobin concentration determination Dr. Ethan Rodriguez MD Work Phone: Start: 08-17-2024 Nucleated red blood cell count procedure Dr. Ethan Rodriguez MD Work Phone: Start: 08-17-2024 Platelet mean volume determination Dr. Karen Rodriguez MD Work Phone: Start: 08-15-[address] Ethan ritchie MD Work Phone: Start: 08-15-[address] Ethan Bradley Work Phone: Start: 08-15-2024 End: 08-15-2024 Microbial culture, body fluid Dr. Ethan vivas MD Work Phone: Start: 08-15-[address] Ethan Rodriguez MD Work Phone: Start: 08-15-2024 Blood count leukocyte wbc automated Dr. Ethan Rodriguez MD Work Phone: Start: 08-15-[address] Ethan Rodriguez MD Work Phone: Start: 08-15-[address] Chester Rodriguez MD Work Phone: Start: 08-15-2024 Plain chest X-ray Dr. Ethan Rodriguez MD Work Phone: Start: 08-15-2024 Glucose measurement, body fluid Dr. Ethan Rodriguez MD Work Phone: Start: 08-15-2024 Ultrasonic guidance for thoracentesis Dr. Ethan Rodriguez MD Work Phone: Start: 08-15-[address] Ethan Rodriguez MD Work Phone: Start: 08-15-2024 Total cholesterol:HDL ratio measurement Dr. Ethan Rodriguez MD Work Phone: Start: 08-14-[address] Ethan Rodriguez MD Work Phone: Start: 08-14-[address] Ethan Rodriguez MD Work Phone: Start: 08-14-2024 Dr. Ethan Rodriguez MD Work Phone: Start: 08-14-2024 Urine microscopy: red cells Dr. Ethan ritchie MD Work Phone: Start: 08-14-2024 Urnls dip stick/tablet reagent auto microscopy Dr. Ethan Rodriguez MD Work Phone: Start: 08-14-2024 Plain chest X-ray Dr. Ethan Rodriguez MD Work Phone: Start: 08-14-2024 Carbon dioxide measurement, partial pressure Dr. Ethan Rodriguez MD Work Phone: Start: 08-14-2024 Gases blood o2 saturation only direct megan Dr. Ethan Rodriguez MD Work Phone: Start: 08-14-2024 Measurement of partial pressure of oxygen in blood Dr. Ethan Rodriguez MD Work Phone: Start: 08-14-[address] Ethan Rodriguez MD Work Phone: Start: 08-14-[address] Ethan Rodriguez MD Work Phone: Start: 08-14-2024 Calculation of international normalized ratio Dr. Ethan Rodriguez MD Work Phone: Start: 08-14-2024 Serum inorganic phosphate measurement Dr. Ethan Rodriguez MD Work Phone: Start: 08-14-[address] Ethan Rodriguez MD Work Phone: Start: 08-14-2024 Mean corpuscular hemoglobin concentration determination Dr. Ethan Rodriguez MD Work Phone: Start: 08-14-2024 Platelet mean volume determination Dr. Karen Rodriguez MD Work Phone: Start: 08-14-2024 Total cholesterol:HDL ratio measurement Dr. Ethan Rodriguez MD Work Phone: Start: 08-14-2024 Vitamin D, 25-hydroxy measurement Dr. Chester Rodriguez MD Work Phone: Start: 08-13-2024 Blood count smear mcrscp w/mnl difrntl wbc count Dr. Ethan Rodriguez MD Work Phone: Start: 08-13-[address] Ethan Rodriguez MD Work Phone: Start: 08-13-2024 Mean corpuscular hemoglobin concentration determination Dr. Ethan Rodriguez MD Work Phone: Start: 08-13-2024 Nucleated red blood cell count procedure Dr. Ethan Rodriguez MD Work Phone: Start: 08-13-2024 Platelet mean volume determination Dr. Karen Rodriguez MD Work Phone: Start: 08-12-2024 Antibody screen Angie Torres Comment on above: Order Comment: CMV NEG? NNumber of units to transfuse: 1Reason for Ordering Blood: AcuteAre the blood/blood products to be transfused? YIs the patient having/had surgery? NNWhen ReadyNYA Result Comment: AMENDED REPORT 08/12/24 1425: ANTIBODY SCREEN previously reported as:POSITIVE Performed By: #### B RC, [id number], BTS, BtABORH, [id number] ####[facility] [id number] [facility]. [place], [place], [id number] Start: 08-08-2024 Computed tomography of abdomen and pelvis with contrast Dr. Ethan Rodriguez MD Work Phone: Start: 08-07-[address] Ethan Rodriguez MD Work Phone: Start: 08-06-2024 Computed tomography of abdomen and pelvis with contrast Dr. Ethan Rodriguez MD Work Phone: Start: 08-03-[address] Ethan glass MD Work Phone: Start: 07-31-2024 Computed tomography of abdomen and pelvis with intravenous contrast Dr. tEhan Rodriguez MD Work Phone: Start: 07-31-2024 Calculation of international normalized ratio Dr. Ethan Rodriguez MD Work Phone: Start: 07-31-[address] Karen Rodriguez MD Work Phone: Start: 07-30-[address] Ethan Rodriguez MD Work Phone: Start: 07-30-2024 Mean corpuscular hemoglobin concentration determination Dr. Ethan Rodriguez MD Work Phone: Start: 07-30-2024 Platelet mean volume determination Dr. Karen Rodriguez MD Work Phone: Start: 07-30-2024 Total cholesterol:HDL ratio measurement Dr. Ethan Rodriguez MD Work Phone: Start: 07-30-2024 Vitamin D, 25-hydroxy measurement Dr. Chester Rodriguez MD Work Phone: Start: 07-29-[address] Ethan Rodriguez MD Work Phone: Start: 07-29-2024 Mean corpuscular hemoglobin concentration determination Dr. Ethan Rodriguez MD Work Phone: Start: 07-29-2024 Platelet mean volume determination Dr. Karen Rodriguez MD Work Phone: Start: 07-29-2024 Serum inorganic phosphate measurement Dr. Ethan Rodriguez MD Work Phone: Start: 07-28-2024 Blood count smear mcrscp w/mnl difrntl wbc count Dr. Ethan Rodriguez MD Work Phone: Start: 07-28-2024 Nucleated red blood cell count procedure Dr. Ethan Rodriguez MD Work Phone: Start: 07-25-[address] Ethan Bradley Work Phone: Start: 07-25-2024 End: 07-25-2024 Microbial culture, routine Dr. Ethan glass MD Work Phone: Start: 07-25-[address] Ethan gage MD Work Phone: Start: 07-24-[address] Ethan glass MD Work Phone: Start: 07-23-2024 Measurement of occult blood in stool specimen using immunoassay Dr. Ethan Rodriguez MD Work Phone: Start: 07-18-2024 Carbon dioxide measurement, partial pressure Dr. Ethan Rodriguez MD Work Phone: Start: 07-18-2024 Gases blood o2 saturation only direct megan Dr. Ethan Rodriguez MD Work Phone: Start: 07-18-2024 Measurement of partial pressure of oxygen in blood Dr. Ethan Rodriguez MD Work Phone: Start: 07-18-[address] Ethan Rodriguez MD Work Phone: Start: 07-18-2024 Albumin/Globulin ratio Dr. Ethan Rodriguez MD Work Phone: Start: 07-18-[address] Ethan Bradley Work Phone: Start: 9 End: 07-18-2024 Blood count smear mcrscp w/mnl difrntl wbc count Dr. Ethan Rodriguez MD Work Phone: Start: 07-18-2024 BUN/Creatinine ratio Dr. Ethan Rodriguez MD Work Phone: Start: 07-18-[address] Ethan Rodriguez MD Work Phone: Start: 07-18-2024 Mean corpuscular hemoglobin concentration determination Dr. Ethan Rodriguez MD Work Phone: Start: 07-18-2024 Measurement of renal function Dr. Ethan vivas MD Work Phone: Start: 07-18-2024 Nucleated red blood cell count procedure Dr. Ethan Rodriguez MD Work Phone: Start: 07-18-2024 Platelet mean volume determination Dr. Karen Rodriguez MD Work Phone: Start: 07-18-2024 Computed tomography of abdomen and pelvis with contrast Dr. Ethan Rodriguez MD Work Phone: Start: 06-25-[address] Ethan Bradley Work Phone: Start: 06-25-2024 Blood count smear mcrscp w/mnl difrntl wbc count Dr. Ethan Rodriguez MD Work Phone: Start: 06-25-2024 BUN/Creatinine ratio Dr. Ethan Rodriguez MD Work Phone: Start: 06-25-2024 Mean corpuscular hemoglobin concentration determination Dr. Ethan Rodriguez MD Work Phone: Start: 06-25-2024 Measurement of renal function Dr. Ethan vivas MD Work Phone: Start: 06-25-2024 Nucleated red blood cell count procedure Dr. Ethan Rodriguez MD Work Phone: Start: 06-25-2024 Platelet mean volume determination Dr. Karen Rodriguez MD Work Phone: Start: 06-24-[address] Ethan Bradley Work Phone: Start: 06-24-2024 Blood count smear mcrscp w/mnl difrntl wbc count Dr. Ethan Rodriguez MD Work Phone: Start: 06-24-2024 BUN/Creatinine ratio Dr. Ethan Rodriguez MD Work Phone: Start: 06-24-2024 Mean corpuscular hemoglobin concentration determination Dr. Ethan Rodriguez MD Work Phone: Start: 06-24-2024 Measurement of renal function Dr. Ethan vivas MD Work Phone: Start: 06-24-2024 Nucleated red blood cell count procedure Dr. Ethan Rodriguez MD Work Phone: Start: 06-24-2024 Platelet mean volume determination Dr. Karen Rodriguez MD Work Phone: Start: 06-21-2024 Urine microscopy: red cells Dr. Ethan ritchie MD Work Phone: Start: 06-21-2024 Urnls dip stick/tablet reagent auto microscopy Dr. Ethan Rodriguez MD Work Phone: Start: 06-21-[address] Ethan Rodriguez MD Work Phone: Start: 05-26-[address] Ethan Rodriguez MD Work Phone: Start: 04-16-[address] Ethan Rodriguez MD Work Phone: Start: 01-03-2024 EXT LAB PT/INR Historical Provider Start: 01-03-2024 Extrinsic coagulation pathway factor assay Ying Quispe DO Work Phone: Start: 12-27-2023 EXT LAB PT/INR Historical Provider Start: 12-27-2023 Extrinsic coagulation pathway factor assay Ying Quispe DO Work Phone: Start: 12-20-2023 Extrinsic coagulation pathway factor assay Ying Quispe DO Work Phone: Start: 12-13-2023 EXT LAB PT/INR Historical Provider Start: 12-13-2023 Extrinsic coagulation pathway factor assay Ying Quispe DO Work Phone: Start: 12-06-2023 EXT LAB PT/INR Historical Provider Start: 12-06-2023 Extrinsic coagulation pathway factor assay Ying Quispe DO Work Phone: Start: 11-29-2023 EXT LAB PT/INR Historical Provider Start: 11-29-2023 Extrinsic coagulation pathway factor assay Ying Quispe DO Work Phone: Start: 11-21-2023 EXT LAB PT/INR Historical Provider Start: 11-21-2023 Extrinsic coagulation pathway factor assay Ying Quispe DO Work Phone: Start: 11-14-2023 EXT LAB PT/INR Historical Provider Start: 11-14-2023 Extrinsic coagulation pathway factor assay Ying Quispe DO Work Phone: Start: 11-08-2023 Extrinsic coagulation pathway factor assay Ying Quispe DO Work Phone: Start: 11-08-2023 EXT LAB PT/INR Historical Provider Start: 11-01-2023 Follow-up visit Follow-up CATE CONTRERAS Start: 10-25-2023 Antibody screen PCP PHYSICIAN Comment on above: Performed By: #### [id number] #### [facility] HOSPITAL) [facility] [address] [place] [address] Start: 09-07-2023 Prothrombin time Lita Gu MD Work Phone: Start: 08-10-2023 Prothrombin time Lita Gu MD Work Phone: Start: 07-13-2023 Prothrombin time Lita Gu MD Work Phone: Start: 06-07-2023 Prothrombin time Lita Gu MD Work Phone: Start: 05-03-2023 Prothrombin time Lita Gu MD Work Phone: Start: 04-05-2023 Prothrombin time Lita Gu MD Work Phone: Start: 03-08-2023 Prothrombin time Lita Gu MD Work Phone: Start: 02-15-2023 Prothrombin time Lita Gu MD Work Phone: Start: 02-13-2023 Mammography Adilene Bryan alysa,PharmD Work Phone: Start: 02-01-2023 Prothrombin time Lita Gu MD Work Phone: Start: 01-25-2023 Comprehensive metabolic panel Ying Guajardo DO Work Phone: Start: 01-25-2023 Lipid panel Ying Quispe DO Work Phone: Start: 01-25-2023 Lipid 1996 panel - Serum or Plasma Wilver Quispe DO Work Phone: Start: 01-16-2023 Prothrombin time Lita Gu MD Work Phone: Start: 01-09-2023 Prothrombin time Lita Gu MD Work Phone: Start: 01-02-2023 Prothrombin time Ying Quispe DO Work Phone: Start: 12-26-2022 Prothrombin time Lita Gu MD Work Phone: Start: 12-19-2022 Prothrombin time Lita Gu MD Work Phone: Start: 11-28-2022 Adult depression screening assessment Ying Quispe DO Work Phone: Start: 06-11-2022 Basic metabolic panel calcium total Adia Rodriguez MD Work Phone: Start: 06-10-2022 Electrocardiogram Generic [facility] Work Phone: Start: 06-10-2022 Thromboplastin time partial plasma/whole blood Adia Rodriguez MD Work Phone: Start: 06-10-2022 Blood count complete automated Bambi Whyte PA-C Work Phone: Start: 06-10-2022 Radiologic exam chest single view Naeem Whyte PA-C Work Phone: Start: 06-10-2022 Ct head/brain w/o contrast material Bambi Whyte PA-C Work Phone: Start: 06-10-2022 Dup-scan xtr veins unilateral/limited study Bambi Whyte PA-C Work Phone: Start: 06-10-2022 LAVENDER TOP Shira Lopez MD Work Phone: Start: 06-10-2022 LIGHT BLUE TOP Shira Lopez MD Work Phone: Start: 06-10-2022 MINT GREEN TOP Shira Lopez MD Work Phone: Start: 06-10-2022 Natriuretic peptide Bambi Whyte PA-C Work Phone: Start: 06-10-2022 RAINBOW DRAW Shira Lopez MD Work Phone: Start: 06-06-2022 Adult depression screening assessment Ying Quispe DO Work Phone: Start: 01-05-2022 Adult depression screening assessment Felicity Olson CNP Work Phone: Start: 12-07-2021 Mammography Felicity Olson CLIMATOLOGY PROFESSOR Work Phone: Start: 11-19-2021 Lipid 1996 panel - Serum or Plasma eDbbie Puckett Jr., DPM Work Phone: Start: 06-17-2021 Radex foot complete minimum 3 views Yfn Puckett DPM Work Phone: Start: 05-12-2021 Adult depression screening assessment Ying Quispe DO Work Phone: Start: 09-29-2020 Adult depression screening assessment Bambi Huynh MD Work Phone: Start: 01-14-2019 Adult depression screening assessment Bambi Huynh Start: 12-20-2018 Lipid 1996 panel - Serum or Plasma Wilver Quispe DO Work Phone: Start: 09-15-2018 Basic metabolic 2000 panel - Serum or Plasma Татьяна Jenkins Work Phone: Start: 09-14-2018 CT of urinary tract Dewayne Barlow Work Phone: Start: 09-14-2018 Basic metabolic 1998 panel - Serum or Plasma Dewayne Barlow Work Phone: Start: 09-14-2018 Complete blood count with white cell differential, automated Dewayne Barlow Work Phone: Start: 09-14-2018 Complete blood count with white cell differential, manual Princeanabelsadie Jareth Work Phone: Start: 07-04-2016 Mammography Bambi Claus Plan of Treatment Date Care Activity Detail Author Start: 03-19-2025 Urine screening for protein eGFR - Kidney Disease [facility] Start: 12-20-2024 Screening for malignant neoplasm of colon [facility] Start: 09-15-2024 [facility] Start: 09-15-2024 [facility] Start: 08-31-2024 Oxygen therapy [facility] Start: 08-31-2024 Administration of blood product [facility] Start: 08-31-2024 [facility] Start: 08-31-2024 Following clinical pathway protocol [facility] Start: 08-31-2024 Transfusion of blood product [facility] Start: 08-17-2024 Patient discharge [facility] Start: 08-16-2024 [facility] Start: 08-16-2024 Hemodialysis care [facility] Start: 08-15-2024 Anaerobic microbial culture [facility] Start: 08-15-2024 End: 08-15-2024 [facility] Start: 08-15-2024 Care of hemodialysis equipment [facility] Start: 08-15-2024 Wound care [facility] Start: 08-15-2024 End: 08-15-2024 Microbial culture, body fluid [facility] Start: 08-15-2024 Vital signs measurements [facility] Start: 08-15-2024 Ultrasonic guidance for thoracentesis [facility] Start: 08-14-2024 Application of intermittent pneumatic compression device [facility] Start: 08-14-2024 Care regimes management [facility] Start: 08-14-2024 Notification of physician [facility] Start: 08-14-2024 End: 08-14-2024 [facility] Start: 08-14-2024 Blood culture [facility] Start: 08-14-2024 Urine culture [facility] Start: 08-14-2024 Dialysis care [facility] Start: 08-14-2024 Following clinical pathway protocol [facility] Start: 08-14-2024 Care of hemodialysis equipment [facility] Start: 08-14-2024 Ambulation without limitation [facility] Start: 08-14-2024 Application of elastic bandage [facility] Start: 08-14-2024 Assessment of risk of venous thromboembolism [facility] Start: 08-14-2024 Elevation of affected extremity [facility] Start: 08-14-2024 Insertion of catheter into peripheral vein [facility] Start: 08-14-2024 Measuring intake and output [facility] Start: 08-14-2024 Notification of physician [facility] Start: 08-14-2024 Oxygen therapy [facility] Start: 08-14-2024 Patient education [facility] Start: 08-14-2024 Providing care according to standard [facility] Start: 08-14-2024 Referral to occupational therapist [facility] Start: 08-14-2024 Referral to service [facility] Start: 08-14-2024 Speech therapy assessment [facility] Start: 08-14-2024 Hemodialysis care [facility] Start: 08-14-2024 End: 08-14-2024 [facility] Start: 08-14-2024 Cell count and Differential panel - Body fluid [facility] Start: 08-14-2024 Glucose measurement, body fluid [facility] Start: 08-14-2024 Lactate dehydrogenase [Enzymatic activity/volume] in Body fluid by Pyruvate to lactate reaction [facility] Start: 08-14-2024 Microbial culture, body fluid [facility] Start: 08-14-2024 Microscopic observation [Identifier] in Body fluid by Cyto stain [facility] Start: 08-14-2024 Protein [Mass/volume] in Body fluid [facility] Start: 08-14-2024 Verification routine [facility] Start: 08-14-2024 Admission procedure [facility] Start: 08-14-2024 Referral to head tennis coach [facility] Start: 08-14-2024 Hospital admission, emergency, from emergency room, medical nature [facility] Start: 08-14-2024 [facility] Start: 08-14-2024 End: 08-14-2024 [facility] Start: 08-14-2024 Patient referral to dietitian [facility] Start: 08-13-2024 End: 08-13-2024 [facility] Start: 08-13-2024 Care of hemodialysis equipment [facility] Start: 08-13-2024 Patient discharge [facility] Start: 08-12-2024 Care regimes management [facility] Start: 08-12-2024 Notification of physician [facility] Start: 08-12-2024 [facility] Start: 08-12-2024 Administration of blood product [facility] Start: 08-12-2024 Care of hemodialysis equipment [facility] Start: 08-12-2024 Hemodialysis care [facility] Start: 08-12-2024 End: 08-12-2024 [facility] Start: 08-09-2024 End: 08-09-2024 [facility] Start: 08-09-2024 Hemodialysis care [facility] Start: 08-07-2024 End: 08-08-2024 [facility] Start: 08-07-2024 Attention to flatus tube [facility] Start: 08-07-2024 Care of hemodialysis equipment [facility] Start: 08-07-2024 Hemodialysis care [facility] Start: 08-07-2024 [facility] Start: 08-05-2024 End: 08-06-2024 [facility] Start: 08-05-2024 Referral to occupational therapist [facility] Start: 08-05-2024 Referral to service [facility] Start: 08-05-2024 Care of hemodialysis equipment [facility] Start: 08-05-2024 Hemodialysis care [facility] Start: 08-04-2024 End: 08-05-2024 [facility] Start: 08-04-2024 Administration of blood product [facility] Start: 08-04-2024 Notification of physician [facility] Start: 08-04-2024 Care regimes management [facility] Start: 08-04-2024 [facility] Start: 08-03-2024 Nil by mouth [facility] Start: 08-02-2024 End: 08-03-2024 [facility] Start: 08-02-2024 Application of intermittent pneumatic compression device [facility] Start: 08-02-2024 Care of hemodialysis equipment [facility] Start: 08-02-2024 Hemodialysis care [facility] Start: 08-01-2024 Wound care [facility] Start: 08-01-2024 Care of hemodialysis equipment [facility] Start: 08-01-2024 Hemodialysis care [facility] Start: 08-01-2024 End: 08-01-2024 [facility] Start: 07-31-2024 Consultation for treatment [facility] Start: 07-31-2024 Following clinical pathway protocol [facility] Start: 07-31-2024 Ambulation without limitation [facility] Start: 07-31-2024 Assessment of risk of venous thromboembolism [facility] Start: 07-31-2024 Insertion of catheter into peripheral vein [facility] Start: 07-31-2024 Oxygen therapy [facility] Start: 07-31-2024 Providing care according to standard [facility] Start: 07-31-2024 Referral to gastroenterology service [facility] Start: 07-31-2024 Referral to head tennis coach [facility] Start: 07-31-2024 Referral to service [facility] Start: 07-31-2024 [facility] Start: 07-31-2024 Admission procedure [facility] Start: 07-31-2024 Patient referral to dietitian [facility] Start: 07-29-2024 Patient discharge [facility] Start: 07-29-2024 Care of hemodialysis equipment [facility] Start: 07-29-2024 Hemodialysis care [facility] Start: 07-29-2024 [facility] Start: 07-26-2024 Care of hemodialysis equipment [facility] Start: 07-26-2024 Hemodialysis care [facility] Start: 07-26-2024 [facility] Start: 07-25-2024 Oxygen therapy [facility] Start: 07-25-2024 Care of hemodialysis equipment [facility] Start: 07-25-2024 Hemodialysis care [facility] Start: 07-25-2024 [facility] Start: 07-24-2024 Wound care [facility] Start: 07-23-2024 Application of intermittent pneumatic compression device [facility] Start: 07-23-2024 Assessment of risk of venous thromboembolism [facility] Start: 07-23-2024 Consultation for treatment [facility] Start: 07-23-2024 Documentation procedure [facility] Start: 07-23-2024 Insertion of catheter into peripheral vein [facility] Start: 07-23-2024 Patient referral to dietitian [facility] Start: 07-23-2024 Providing care according to standard [facility] Start: 07-23-2024 Provision of activity privileges [facility] Start: 07-23-2024 Referral to gastroenterology service [facility] Start: 07-23-2024 Referral to head tennis coach [facility] Start: 07-23-2024 Referral to occupational therapist [facility] Start: 07-23-2024 Referral to service [facility] Start: 07-23-2024 [facility] Start: 07-23-2024 Admission procedure [facility] Start: 07-18-2024 [facility] Start: 07-18-2024 [facility] Start: 02-26-2024 End: 02-26-2024 Patient encounter procedure 02/26/2024 2:00 PM EDT Office Visit [facility] [address] [place] [id number] Ying Quispe DO [address] [place] [address] [facility] Start: 02-14-2024 Screening for malignant neoplasm of breast Mammogram [facility] Start: 01-30-2024 End: 01-30-2024 Patient encounter procedure 01/30/2024 3:30 PM EDT Office Visit [facility] [address] 3rd [place] [address] Sarath Rey MD [address] [place] [address] [facility] Start: 01-28-2024 COVID-19 Vaccine ( season) COVID-19 Vaccine ( season) [facility] Start: 01-28-2024 COVID-19 Vaccine ( season) COVID-19 Vaccine ( season) [facility] Start: 01-28-2024 Influenza vaccination [facility] Start: 01-26-2024 Lipid panel Lipid Panel [facility] Start: 01-24-2024 End: 01-24-2024 Admission to same day surgery center 01/24/2024 7:10 AM EDT - 01/24/2024 11:55 AM EDT Surgery [facility] [address] [place] [address] Edenilson Guerra DO [address] [place] [address] Explant of Endograft and Open Aortic Aneurysm Repair [facility] Comment on above: Explant of Endograft and Open Aortic Ane urysm Repair Start: 01-24-2024 End: 01-24-2024 Dir rpr ruptd aneurysm abdominal aorta ANEURYSM REPAIR ABDOMINAL AORTIC (AAA) Juxtarenal abdominal aortic aneurysm, ruptured (HCC) 01/24/2024 7:10 AM EDT [facility] Start: 01-24-2024 Subsequent hospital visit by physician [facility] Per[facility] Start: 01-23-2024 End: 01-23-2024 Patient encounter procedure 01/23/2024 3:30 PM EDT Office Visit [facility] [address] 3rd [place] [address] Sarath Rey MD [address] [place] [address] [facility] Start: 01-10-2024 End: 01-10-2024 Patient encounter procedure 01/10/2024 8:15 AM EDT Anticoag visit [facility] [address] [place] [address] [facility] Start: 01-09-2024 End: 01-09-2024 Patient encounter procedure 01/09/2024 1:00 PM EDT Office Visit [facility] [address] 3rd floor [place] [address] Sarath Rey MD [address] [place] [address] [facility] Start: 01-09-2024 Subsequent hospital visit by physician 01/09/2024 9:00 AM EDT Hospital Encounter [facility] CT Scan [address] [place] [address] Sarath Rey MD [address] [place] [address] [facility] [address] Scan Start: 01-05-2024 End: 01-05-2024 Patient encounter procedure [facility] Start: 01-03-2024 End: 01-03-2024 Patient encounter procedure [facility] Comment on above: Acute deep vein thrombosis (DVT) of axil yusuf vein of left upper extremity (HCC) (Primary Dx) Start: 01-03-2024 End: 01-03-2024 Home visit [facility] Start: 01-02-2024 End: 01-02-2024 Home visit 01/02/2024 11:45 AM EDT Home Care Visit [address] [phone] Makenzie Garza RN [facility] Start: 12-28-2023 End: 12-28-2023 Home visit 12/28/2023 9:45 AM EDT Home Care Visit [address] [address] Nahid Lindsay, RANJIT [facility] Start: 12-27-2023 End: 12-27-2023 Patient encounter procedure [facility] Start: 12-27-2023 End: 12-27-2023 Home visit [facility] Start: 12-26-2023 End: 12-26-2023 Patient encounter procedure [facility] Start: 12-25-2023 End: 12-25-2023 Home visit 12/25/2023 3:00 PM EDT Home Care Visit [address] [address] Nahid Wheeler PTA [facility] Start: 12-21-2023 End: 12-21-2023 Patient encounter procedure [facility] Comment on above: Acute deep vein thrombosis (DVT) of axil yusuf vein of left upper extremity (HCC) (Primary Dx) Start: 12-21-2023 End: 12-20-2024 INR in Platelet poor plasma by Coagulation assay PT/INR Lab STAT Acute deep vein thrombosis (DVT) of axillary vein of left upper extremity (HCC) Expected: 12/21/2023, Expires: 12/20/2024 [facility] Work Phone: Comment on above: Expected: 12/21/2023, Expires: Start: 12-20-2023 End: 12-20-2023 Patient encounter procedure 12/20/2023 5:00 PM EDT Anticoag visit [facility] [address] [facility] [address] [place] [address] [facility] Start: 12-20-2023 End: 12-20-2023 Home visit [facility] Start: 12-15-2023 COVID-19 Vaccine ( season) COVID-19 Vaccine () [facility] Start: 12-15-2023 End: 12-15-2023 Home visit 12/15/2023 6:00 AM EDT Home Care Visit [facility] [address] [place] [address] Ernestina Moody PTA [facility] Start: 12-13-2023 End: 12-13-2023 Patient encounter procedure [facility] Start: 12-13-2023 End: 12-13-2023 Home visit [facility] Start: 12-11-2023 End: 12-11-2023 Patient encounter procedure 12/11/2023 2:00 PM EDT Appointment [facility] CT Scan [address] [place] [id number] Tylor Kruger MD [address] [facility] [address] [facility] [address] [place] [address] [facility] [address] Scan Start: 12-11-2023 End: 12-11-2023 Home visit 12/11/2023 11:00 AM EDT Home Care Visit [address] [address] Ernestina Moody PTA [facility] Start: 12-06-2023 End: 12-06-2023 Patient encounter procedure [facility] Comment on above: Acute deep vein thrombosis (DVT) of axil yusuf vein of left upper extremity (HCC) (Primary Dx) Start: 12-06-2023 End: 12-06-2023 Home visit [facility] Start: 12-05-2023 End: 12-05-2023 Home visit 12/05/2023 11:00 AM EDT Home Care Visit [address] [address] Ernestina Moody PTA [facility] Start: 11-29-2023 End: 11-29-2023 Patient encounter procedure [facility] Comment on above: Arrived Start: 11-29-2023 Depression screening using PHQ-9 (Patient Health Questionnaire 9) score [facility] Start: 11-29-2023 BEKAH-7 Screening BEKAH-7 Screening [facility] Start: 11-29-2023 End: 11-29-2023 Home visit [facility] Start: 11-28-2023 End: 11-28-2023 Patient encounter procedure 11/28/2023 3:00 PM EDT Appointment [facility] [address] [facility] [place] [phone] Abigail Estrella, CLIMATOLOGY PROFESSOR [address] [place] [address] [facility] Start: 11-27-2023 End: 11-27-2023 Home visit 11/27/2023 4:00 PM EDT Home Care Visit [address] [phone] Giovany Montalvo OTA [facility] Start: 11-24-2023 End: 11-24-2023 Home visit 11/24/2023 3:45 PM EDT Home Care Visit [facility] [address] [place] [address] Giovany Montalvo OTA [facility] Start: 11-23-2023 End: 11-23-2023 Patient encounter procedure 11/23/2023 1:30 PM EDT Office Visit [facility] [address] [place] [address] Ying Quispe DO [address] [place] [address] [facility] Start: 11-23-2023 End: 11-23-2023 Home visit [facility] Start: 11-22-2023 End: 11-22-2023 Patient encounter procedure 11/22/2023 2:00 PM EDT Office Visit [facility] [address] [place] [address] Abigail Estrella, CLIMATOLOGY PROFESSOR [address] [place] [address] Discharge Disposition: Home [facility] Start: 11-21-2023 End: 11-21-2023 Patient encounter procedure [facility] Comment on above: Acute deep vein thrombosis (DVT) of axil yusuf vein of left upper extremity (HCC) (Primary Dx) Start: 11-21-2023 End: 11-21-2023 Home visit [facility] Start: 11-18-2023 End: 11-16-2024 CTA Abdominal Aorta and Bilateral Runoff Vessels W contrast IV CT Angiogram Abdominal Aorta With Lower Extremity Imaging Routine 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) PVD (peripheral vascular disease) (HCC) Expected: 11/18/2023, Expires: 11/16/2024 [facility] Comment on above: Expected: 11/18/2023, Expires: Start: 11-17-2023 End: 11-17-2023 Home visit 11/17/2023 3:30 PM EDT Home Care Visit [address] [address] Giovany Montalvo OTA [facility] Start: 11-17-2023 End: 11-16-2024 Creatinine [Mass/volume] in Serum or Plasma Creatinine, serum Lab Routine 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) PVD (peripheral vascular disease) (HCC) Expected: 11/17/2023, Expires: 11/16/2024 [facility] Work Phone: Comment on above: Expected: 11/17/2023, Expires: Start: 11-17-2023 End: 11-17-2023 Patient encounter procedure 11/17/2023 8:00 AM EDT Office Visit [facility] [address] [place] [address] Tylor Kruger MD [address] [facility] [address] [place] [address] [facility] Start: 11-16-2023 End: 11-16-2023 Home visit [facility] Start: 11-16-2023 End: 11-16-2023 Patient encounter procedure 11/16/2023 9:00 AM EDT Appointment [facility] [address] [facility] [place] [address] Tylor Kruger MD [address] [facility] [address] [place] [address] [facility] Start: 11-16-2023 Subsequent hospital visit by physician 11/16/2023 9:00 AM EDT Hospital Encounter [facility] [address] [facility] [place] [address] Tylor Kruger MD [address] [facility] [address] [place] [address] [facility] Start: 11-14-2023 End: 11-14-2023 Patient encounter procedure [facility] Comment on above: Arrived Start: 11-14-2023 End: 11-14-2023 Home visit [facility] Start: 11-14-2023 End: 11-14-2023 Home visit 11/14/2023 Home Care Visit [address] [address] Addie Purcell RN [facility] Start: 11-11-2023 End: 12-10-2024 US angiography of renal artery Ultrasound renal artery duplex, complete Vascular Ultrasound Routine Ruptured abdominal aortic aneurysm (AAA), unspecified part (HCC) Expected: 11/11/2023, Expires: 12/10/2024 [facility] Work Phone: Comment on above: Expected: 11/11/2023, Expires: Start: 11-10-2023 End: 11-10-2023 Home visit [facility] Start: 11-10-2023 End: 11-10-2023 Home visit 11/10/2023 Home Care Visit [address] [phone] Addie Purcell RN [facility] Start: 11-08-2023 End: 11-08-2023 Patient encounter procedure 11/08/2023 5:00 PM EDT Anticoag visit [facility] [address] [place] [address] [place] [address] Lita Gu MD [address] [place] [address] Discharge Disposition: Home [facility] Start: 11-08-2023 End: 11-08-2023 Home visit [facility] Start: 11-08-2023 End: 11-08-2023 Home visit 11/08/2023 Home Care Visit [address] [address] Addie Purcell RN [facility] Start: 11-06-2023 End: 11-06-2023 Patient encounter procedure 11/06/2023 8:30 AM EDT Appointment [address] [address] Makenzie Garza RN [facility] Start: 11-01-2023 End: 11-01-2023 Follow-up encounter 11/01/2023 1:00 PM EDT Follow-Up [facility] [address] [facility] [address] [place] [address] Cate Contreras, CLIMATOLOGY PROFESSOR [address] [facility] [address] [place] [address] [facility] Start: 10-25-2023 End: 10-25-2023 Patient encounter procedure 10/25/2023 8:30 AM EDT Office Visit [facility] [address] [place] [address] Ying Quispe DO [address] [place] [address] [facility] Start: 10-17-2023 End: 10-17-2023 Patient encounter procedure 10/17/2023 1:30 PM EDT Procedure visit [facility] [address] Building, 2nd [place] [id number] Cuauhtemoc Barrios MD [address] [facility] 2nd [place] [address] [facility] Start: 10-12-2023 End: 10-12-2023 Patient encounter procedure [facility] Start: 10-09-2023 End: 10-09-2023 Patient encounter procedure [facility] Scan Start: 09-19-2023 End: 09-19-2023 Patient encounter procedure [facility] Start: 09-18-2023 End: 09-18-2023 Patient encounter procedure 09/18/2023 9:45 AM EDT Appointment [facility] MRI [address] [place] [id number] Theresa Boykin PA-C [address] [place] [address] [facility] MRI Start: 09-18-2023 End: 09-18-2023 Patient encounter procedure 09/18/2023 8:40 AM EDT Appointment [facility] CT Scan [address] [place] [id number] Lita Gu MD [address] [place] [address] [facility] Scan Start: 09-07-2023 End: 09-07-2023 Patient encounter procedure 09/07/2023 8:15 AM EDT Anticoag visit [facility] [address] [facility] [address] [place] [address] [facility] Start: 08-10-2023 End: 08-10-2023 Patient encounter procedure 08/10/2023 8:30 AM EDT Anticoag visit [facility] [address] [place] [address] [facility] Start: 07-18-2023 End: 07-18-2023 Patient encounter procedure 07/18/2023 9:00 AM EST Office Visit [facility] [address] [place] [address] Yfn Puckett Jr., DPRaúl [address] [place] [address] [facility] Start: 2023 End: 2023 Patient encounter procedure 2023 8:00 AM EST Appointment [facility] [address] [place] [address] [place] [phone] Yfn Puckett Jr., DPRaúl [address] [place] [address] [facility] Start: 07-13-2023 End: 07-13-2023 Patient encounter procedure 07/13/2023 8:15 AM EST Anticoag visit [facility] [address] [place] [address] [facility] Start: 06-07-2023 End: 06-07-2023 Patient encounter procedure 06/07/2023 8:15 AM EST Anticoag visit [facility] [address] [place] [address] [facility] Start: 06-06-2023 Depression screening using PHQ-9 (Patient Health Questionnaire 9) score Depression Screening (PHQ-2/9) [facility] Start: 06-06-2023 BEKAH-7 Screening BEKAH-7 Screening [facility] Start: 05-03-2023 End: 05-03-2023 Patient encounter procedure 05/03/2023 8:15 AM EST Anticoag visit [facility] [address] [place] [address] [facility] Start: 04-24-2023 End: 04-24-2023 Patient encounter procedure 04/24/2023 11:30 AM EST Office Visit [facility] [address] [place] [address] Ying Quispe DO [address] [place] [address] [facility] Start: 04-10-2023 End: 04-10-2023 Patient encounter procedure 04/10/2023 8:15 AM EST Office Visit [facility] [address] [place] [address] Lita Gu MD [address] [place], [place] [address], [place] [address] [facility] Start: 04-05-2023 End: 04-05-2023 Patient encounter procedure 04/05/2023 8:00 AM EST Anticoag visit [facility] [address] [facility] [address] [place] [address] [facility] Start: 03-08-2023 End: 03-08-2023 Patient encounter procedure 03/08/2023 8:00 AM EDT Anticoag visit [facility] [address] [facility] [address] [place] [address] [facility] Start: 02-15-2023 End: 02-15-2023 Patient encounter procedure 02/15/2023 8:00 AM EDT Anticoag visit [facility] [address] [place] [address] [facility] Start: 02-13-2023 End: 02-13-2023 Patient encounter procedure 02/13/2023 9:30 AM EDT Appointment [facility] [address] [place] [phone] Ying Quispe, [address] [place] [address] [facility] Start: 02-08-2023 End: 03-27-2024 MG Breast - bilateral Screening Mammography Screening Jose Bilateral Imaging Routine Encounter for screening mammogram for malignant neoplasm of breast Expected: 02/08/2023, Expires: 03/27/2024 [facility] Comment on above: Expected: 02/08/2023, Expires: Start: 02-03-2023 End: 02-03-2023 Patient encounter procedure 02/03/2023 11:00 AM EDT Office Visit [facility] [address] Office Building, 2nd [place] [address] Lita Gu MD [address] [facility] [place] [address] Nazario Almeida MD [facility] [address] [address] [facility] Start: 02-01-2023 End: 02-01-2023 Patient encounter procedure 02/01/2023 8:00 AM EDT Anticoag visit [facility] [address] [place] [address] [facility] Start: 01-27-2023 COVID-19 Vaccine ( season) COVID-19 Vaccine () [facility] Start: 01-27-2023 Influenza vaccination [facility] Start: 01-25-2023 End: 01-25-2023 Patient encounter procedure 01/25/2023 3:45 PM EDT Office Visit [facility] [address] [place] [address] Ying Quispe DO [address] [place] [address] [facility] Start: 01-23-2023 End: 01-23-2023 Patient encounter procedure 01/23/2023 10:30 AM EDT Anticoag visit [facility] [address] [place] [address] [facility] Start: 01-16-2023 End: 01-16-2023 Patient encounter procedure 01/16/2023 8:15 AM EDT Anticoag visit [facility] [address] [place] [address] [facility] Start: 01-09-2023 End: 01-09-2023 Patient encounter procedure 01/09/2023 8:00 AM EDT Anticoag visit [facility] [address] [place] [address] [facility] Start: 01-05-2023 Depression screening using PHQ-9 (Patient Health Questionnaire 9) score Depression Screening (PHQ-2/9) [facility] Start: 01-05-2023 BEKAH-7 Screening BEKAH-7 Screening [facility] Start: 01-02-2023 End: 01-02-2023 Patient encounter procedure 01/02/2023 7:30 AM EDT Anticoag visit [facility] [address] [place] [address] [facility] Start: 12-26-2022 End: 12-26-2022 Patient encounter procedure 12/26/2022 8:15 AM EDT Anticoag visit [facility] [address] [place] [address] [facility] Start: 12-19-2022 End: 12-19-2022 Patient encounter procedure 12/19/2022 7:45 AM EDT Anticoag visit [facility] [address] [place] [address] Lita Gu MD [address] [place] [address] [facility] Start: 12-12-2022 End: 12-12-2022 Patient encounter procedure 12/12/2022 9:30 AM EDT Office Visit [facility] [address] [place] [address] Lita Gu MD [address] [place] [address] [facility] Start: 12-07-2022 Screening for malignant neoplasm of breast Mammogram [facility] Start: 12-01-2022 End: 12-01-2022 Clinical Support 12/01/2022 8:00 AM EDT Clinical Support [facility] [address] [place] [address] [facility] Start: 11-28-2022 End: 11-28-2022 Patient encounter procedure 11/28/2022 4:15 PM EDT Office Visit [facility] [address] [place] [address] Blomkest Yingsam Sweeney DO [address] [place] [address] [facility] Start: 11-24-2022 End: 11-24-2022 Patient encounter procedure 11/24/2022 Office Visit Primary Care Brittaney Ying DO Zahra [address] [place] [address] [facility] Start: 11-21-2022 End: 11-21-2022 Patient encounter procedure 11/21/2022 Office Visit Primary Care BrittaneyYing DO [address] [place] [address] [facility] Start: 11-19-2022 Lipid panel Lipid Panel [facility] Start: 11-18-2022 History and physical examination, annual for health maintenance Wellness Visit [facility] Start: 11-08-2022 End: 10-26-[address] CT [address] Lymph Node CT Biopsy Lymph Node Imaging Routine History of deep venous thrombosis Axillary lymphadenopathy Expected: 11/08/2022, Expires: 10/26/2023 [facility] Work Phone: Comment on above: Expected: 11/08/2022, Expires: Start: 10-25-2022 End: 10-25-2022 Patient encounter procedure 10/25/2022 10:45 AM EDT Office Visit [facility] [address] [place] [address] Lita Gu MD [address] [place] [address] [facility] Start: 10-18-2022 End: 09-27-2023 MR Brain With And Without Contrast MR Brain With And Without Contrast Imaging Routine History of deep venous thrombosis Current smoker Transaminitis Factor V Leiden mutation (HCC) Lymphadenopathy Decreased muscle strength Lung nodule seen on imaging study Expected: 10/18/2022 (Approximate), Expires: 09/27/2023 [facility] Comment on above: Expected: 10/18/2022 (Approximate), Expi res: 09/27/2023 Start: 10-18-2022 End: 09-28-2023 PET Tumor Imaging With CT Skull To Thigh PET Tumor Imaging With CT Skull To Thigh Imaging Routine History of deep venous thrombosis Current smoker Transaminitis Factor V Leiden mutation (HCC) Lymphadenopathy Decreased muscle strength Lung nodule seen on imaging study Expected: 10/18/2022 (Approximate), Expires: 09/28/2023 [facility] Work Phone: Comment on above: Expected: 10/18/2022 (Approximate), Expi res: 09/28/2023 Start: 09-27-2022 End: 09-27-2022 Patient encounter procedure [facility] Start: 09-20-2022 End: 09-20-2022 Patient encounter procedure 09/20/2022 11:30 AM EDT Office Visit [facility] [address] [place] [address] Ying Quispe DO [address] [place] [address] [facility] Start: 09-15-2022 End: 09-15-2022 Patient encounter procedure 09/15/2022 Appointment Radiology Lita Gu MD [address] [place] [address] [facility] Scan Start: 09-14-2022 End: 07-07-2023 Complete blood count with white cell differential, manual CBC and Differential Lab Routine Acute deep vein thrombosis (DVT) of axillary vein of left upper extremity (HCC) Current smoker Cigarette smoker Screening for malignant neoplasm of respiratory organ Expected: 09/14/2022 (Approximate), Expires: 07/07/2023 [facility] Work Phone: Comment on above: Expected: 09/14/2022 (Approximate), Expi res: 07/07/2023 Start: 09-14-2022 End: 07-07-2023 Comprehensive metabolic 2000 panel - Serum or Plasma Comprehensive Metabolic Panel Lab Routine Acute deep vein thrombosis (DVT) of axillary vein of left upper extremity (HCC) Current smoker Cigarette smoker Screening for malignant neoplasm of respiratory organ Expected: 09/14/2022 (Approximate), Expires: 07/07/2023 [facility] Comment on above: Expected: 09/14/2022 (Approximate), Expi res: 07/07/2023 Start: 09-14-2022 End: 07-06-2023 D-dimer assay, quantitative D-Dimer, Quantitative Lab Routine Acute deep vein thrombosis (DVT) of axillary vein of left upper extremity (HCC) Current smoker Cigarette smoker Screening for malignant neoplasm of respiratory organ Expected: 09/14/2022 (Approximate), Expires: 07/06/2023 [facility] Comment on above: Expected: 09/14/2022 (Approximate), Expi res: 07/06/2023 Start: 09-14-2022 End: 07-06-2023 Low dose computed tomography of thorax CT Lung Cancer Screening Imaging Routine Acute deep vein thrombosis (DVT) of axillary vein of left upper extremity (HCC) Current smoker Cigarette smoker Screening for malignant neoplasm of respiratory organ Expected: 09/14/2022, Expires: 07/06/2023 [facility] Comment on above: Expected: 09/14/2022, Expires: Start: 09-12-2022 End: 09-12-2022 Patient encounter procedure 09/12/2022 Office Visit Primary Care Ying Quispe DO [address] [place] [address] [facility] Start: 2022 Respiratory Syncytial Virus Immunization: Risk, 60-74 Risk, or 75+ (1 - Risk 60-74 years 1-dose series) Respiratory Syncytial Virus Immunization: Risk, 60-74 Risk, or 75+ (1 - Risk 60-74 years 1-dose series) [facility] Start: 06-13-2022 End: 06-13-2022 Patient encounter procedure 06/13/2022 Office Visit Primary Care Ying Quispe DO [address] [place] [address] [facility] Start: 05-12-2022 Depression screening using PHQ-9 (Patient Health Questionnaire 9) score Depression Screening (PHQ-2/9) [facility] Start: 05-12-2022 BEKAH-7 Screening BEKAH-7 Screening [facility] Start: 01-27-2022 Influenza vaccination [facility] Start: 01-13-2022 End: 01-13-2022 Patient encounter procedure 01/13/2022 Office Visit Podiatry Yfn Puckett Jr., YELITZA [address] [place] [address] [facility] Start: 12-07-2021 Subsequent hospital visit by physician 12/07/2021 Hospital Encounter Radiology Ying Quispe DO [address] [place] [address] [facility] Start: 12-07-2021 End: 12-07-2021 Patient encounter procedure 12/07/2021 Appointment Radiology Ying Quispe DO [address] [place] [address] [facility] Dexa Start: 11-25-2021 End: 11-25-2021 Patient encounter procedure 11/25/2021 Office Visit Podiatry Yfn Puckett Jr., DPM [address] [place] [address] [facility] Start: 11-24-2021 End: 11-24-2021 Patient encounter procedure 11/24/2021 Office Visit Primary Care Ying Quispe DO [address] [place] [address] [facility] Start: 11-18-2021 End: 11-18-2021 Patient encounter procedure 11/18/2021 Office Visit Primary Care Ying Quispe DO [address] [place] [address] [facility] Start: 11-11-2021 End: 11-11-2021 Patient encounter procedure 11/11/2021 Office Visit Podiatry Yfn Puckett Jr., DPM [address] [place] [address] [facility] Start: 09-29-2021 Depression screening using PHQ-9 (Patient Health Questionnaire 9) score Depression Screening (PHQ9) [facility] Start: 07-22-2021 End: 07-22-2021 Patient encounter procedure 07/22/2021 Office Visit Podiatry Yfn Puckett Jr., DPRaúl [address] [place] [address] [facility] Start: 06-21-2021 End: 06-21-2021 Patient encounter procedure 06/21/2021 Office Visit Primary Care Ying Quispe DO [address] [place] [address] [facility] Start: 06-21-2021 BEKAH-7 Screening BEKAH-7 Screening [facility] Start: 04-15-2021 End: 04-15-2021 Patient encounter procedure 04/15/2021 Office Visit Primary Care Bambi Huynh MD [address] [place] [address] [phone] [facility] Start: 01-27-2021 Influenza vaccination [facility] Start: 09-29-2020 End: 09-29-2020 Patient encounter procedure 09/29/2020 Office Visit Primary Care Bambi Huynh MD [address] [place] [address] [phone] [facility] Start: 01-28-2020 Influenza vaccination given Sequential Influenza Vaccine (#1) [facility] Start: 01-24-2020 History and physical examination, annual for health maintenance Wellness Visit [facility] Comment on above: Postponed from 1965 (Patient Does Not Have Time) Start: 01-24-2020 Tetanus vaccination [facility] Comment on above: Postponed from 1962 (Patient Does Not Have Time) Start: 01-15-2020 Administration of herpes zoster vaccine Zoster Vaccines (1 of 2) [facility] Comment on above: Postponed from 2012 (Treatment Not Available) Start: 01-15-2020 Depression screening using PHQ-9 (Patient Health Questionnaire 9) score DEPRESSION SCREENING (PHQ9) [facility] Start: 12-21-2019 Lipid panel Lipid Panel [facility] Start: 11-26-2019 Influenza vaccination given SEQUENTIAL INFLUENZA VACCINE (#1) [facility] Comment on above: Postponed from 01/27/2019 (Patient Refus ed) Start: 09-23-2019 End: 09-23-2019 Office Visit 09/23/2019 Office Visit Primary Care Bambi Huynh MD [address] [place] [address] [phone] [facility] Start: 07-26-2019 Protein mass conc Mammogram [facility] Comment on above: Postponed from 07/04/2017 (Patient Does Not Have Time) Start: 07-26-2019 Screening for osteoporosis DEXA SCAN [facility] Comment on above: Postponed from 1962 (Patient Does Not Have Time) Start: 07-26-2019 Screening mammography Mammogram [facility] Comment on above: Postponed from 07/04/2017 (Patient Does Not Have Time) Start: 07-25-2019 Screening for malignant neoplasm of cervix PAP SMEAR [facility] Comment on above: Postponed from 1962 (Patient Does Not Have Time) Start: 05-01-2019 End: 05-01-2019 Treatment 05/01/2019 Treatment Rehabilitation Bambi Huynh MD [address] [place] [address] [phone] Fuad Pisano, PT [facility] Start: 04-29-2019 End: 04-29-2019 Treatment 04/29/2019 Treatment Rehabilitation Bambi Huynh MD [address] [place] [address] [phone] Tisha Do [facility] Start: 04-24-2019 End: 04-24-2019 Treatment 04/24/2019 Treatment Rehabilitation Bambi Huynh MD [address] [place] [address] [phone] Soo Walls [facility] Start: 04-24-2019 End: 04-24-2019 Treatment 04/24/2019 Treatment Rehabilitation Bambi Huynh MD [address] [place] [address] [phone] Oh Crockett [facility] Start: 04-22-2019 End: 04-22-2019 Treatment 04/22/2019 Treatment Rehabilitation Bambi Huynh MD [address] [place] [address] Tisha Do [facility] Start: 04-17-2019 End: 04-17-2019 Treatment 04/17/2019 Treatment Rehabilitation Bambi Huynh MD [address] [place] [address] [phone] Leanne Gomes [facility] Start: 04-15-2019 End: 04-15-2019 Treatment 04/15/2019 Treatment Rehabilitation Bambi Huynh MD [address] [place] [address] Tisha Do [facility] Start: 04-10-2019 End: 04-10-2019 Treatment 04/10/2019 Treatment Rehabilitation Bambi Huynh MD [address] [place] [address] Leanne Gomes [facility] Start: 03-26-2019 End: 03-26-2019 Office Visit 03/26/2019 Office Visit Primary Care Bambi Huynh MD [address] [place] [address] [phone] [facility] Start: 01-27-2019 Influenza vaccination given SEQUENTIAL INFLUENZA VACCINE (#1) [facility] Start: 01-15-2019 End: 01-15-2019 Office Visit 01/15/2019 Office Visit Primary Care Bambi Huynh MD [address] [place] [address] [phone] [facility] Start: 10-30-2018 End: 10-30-2018 Office Visit 10/30/2018 Office Visit Sports Medicine Mendez Roy MD [address] [place] [address] [phone] [facility] Start: 09-06-2018 History and physical examination, annual for health maintenance ANNUAL EXAM [facility] Comment on above: Postponed from 1962 (Patient Does Not Have Time) Start: 01-01-2018 End: 01-01-2018 Ambulatory 01/01/2018 Office Visit Primary Care Bambi Huynh MD [address] [place] [address] [phone] [facility] Start: 07-04-2017 Screening for malignant neoplasm of breast Mammogram [facility] Start: 07-04-2017 Screening mammography MAMMOGRAM [facility] Work Phone: Start: 2012 Administration of herpes zoster vaccine Zoster Vaccines (1 of 2) [facility] Start: 2012 Screening for malignant neoplasm of colon [facility] Start: 1992 Screening for malignant neoplasm of cervix [facility] Start: 1983 Screening for malignant neoplasm of cervix Pap Smear [facility] Start: 1981 Pneumococcal Vaccine: Age 50+ (1 of 2 - PCV) Pneumococcal Vaccine: Age 50+ (1 of 2 - PCV) [facility] Start: 1981 Pneumococcal Vaccine: Ped or At-Risk (1 of 2 - PCV) Pneumococcal Vaccine: Ped or At-Risk (1 of 2 - PCV) [facility] Start: 1978 COVID-19 Vaccine (1 of 2) COVID-19 Vaccine (1 of 2) [facility] Start: 1978 COVID-19 Vaccine (1) COVID-19 Vaccine (1) [facility] Start: 1977 HIV screening HIV Screening [facility] Start: 1974 Adolescent depression screening assessment Depression Screening (PHQ9) [facility] Start: 1974 COVID-19 Vaccine (1) COVID-19 Vaccine (1) [facility] Start: 1974 Depression screening using PHQ-9 (Patient Health Questionnaire 9) score Depression Screening (PHQ9) [facility] Start: 1972 Urine screening for protein Urine (micro)albumin/creatinine ratio - Kidney Disease [facility] Start: 1968 Pneumococcal Vaccine: Ped or At-Risk (1 - PCV) Pneumococcal Vaccine: Ped or At-Risk (1 - PCV) [facility] Start: 1968 Pneumococcal Vaccine: Ped or At-Risk (1 of 2 - PCV) Pneumococcal Vaccine: Ped or At-Risk (1 of 2 - PCV) [facility] Start: 1968 Pneumococcal Vaccine: Ped or At-Risk (1 of 2 - PPSV23) Pneumococcal Vaccine: Ped or At-Risk (1 of 2 - PPSV23) [facility] Start: 1967 COVID-19 Vaccine (#1) COVID-19 Vaccine (#1) [facility] Start: 1967 COVID-19 Vaccine (1) COVID-19 Vaccine (1) [facility] Start: 1965 History and physical examination, annual for health maintenance Wellness Visit [facility] Start: 01-14-1963 COVID-19 Vaccine (#1) COVID-19 Vaccine (#1) [facility] [facility]: 1960 HEPATITIS C SCREENING HEPATITIS C SCREENING [facility] Work Phone: Start: 1960 Protein mass conc COLONOSCOPY [facility] Start: 1960 Screening colonoscopy COLONOSCOPY [facility] Work Phone: Start: 1960 Screening for malignant neoplasm of cervix PAP SMEAR [facility] Start: 1960 Screening for malignant neoplasm of colon [facility] Start: 02-19-1963 Screening for osteoporosis Dexa Scan [facility] Start: 1960 Tetanus vaccination [facility] Amylase [Enzymatic activity/volume] in Body fluid [facility] Amylase [Enzymatic activity/volume] in Body fluid [facility] End: 11-18-2022 Bone density scan XR Bone Density DEXA Axial Imaging Routine Post-menopause 1 Occurrences starting 11/18/2021 until 11/18/2022 [facility] Comment on above: 1 Occurrences starting 11/18/2021 until 11/18/2022 Cologuard Cologuard Lab Ro utine Colon cancer screening Ordered: 11/18/2021 [facility] Comment on above: Ordered: 11/18/2021 Complete blood count with white cell differential, automated CBC Auto Differential Lab Panel Routine Orthostatic hypotension Ordered: 11/23/2023 [facility] Comment on above: Ordered: 11/23/2023 End: 11-18-2022 Complete blood count with white cell differential, manual CBC and Differential Lab Routine Routine general medical examination at a health care facility 1 Occurrences starting 11/18/2021 until 11/18/2022 [facility] Comment on above: 1 Occurrences starting 11/18/2021 until 11/18/2022 End: 12-13-2023 Complete blood count with white cell differential, manual CBC and Differential Lab Routine History of deep venous thrombosis Reactive lymphadenopathy Factor V Leiden mutation (HCC) Every 4 mo for 2 Occurrences starting 12/12/2022 until 12/13/2023, 1 completed [facility] Work Phone: Comment on above: Every 4 mo for 2 Occurrences starting until 12/13/2023, 1 completed End: 11-22-2024 Complete blood count with white cell differential, manual CBC and Differential Lab Routine Orthostatic hypotension 1 Occurrences starting 11/23/2023 until 11/22/2024 [facility] Comment on above: 1 Occurrences starting 11/23/2023 until 11/22/2024 End: 11-29-2023 Comprehensive metabolic 2000 panel - Serum or Plasma Comprehensive Metabolic Panel Lab Routine Familial hypercholesteremia 1 Occurrences starting 11/28/2022 until 11/29/2023 [facility] Work Phone: Comment on above: 1 Occurrences starting 11/28/2022 until 11/29/2023 End: 08-30-2024 Comprehensive metabolic 2000 panel - Serum or Plasma Comprehensive Metabolic Panel Lab Routine Hypothyroidism, unspecified type 1 Occurrences starting 01/25/2023 until 01/26/2024 [facility] Work Phone: Comment on above: 1 Occurrences starting 01/25/2023 until 01/26/2024 End: 11-22-2024 Comprehensive metabolic 2000 panel - Serum or Plasma Comprehensive Metabolic Panel Lab Routine Orthostatic hypotension 1 Occurrences starting 11/23/2023 until 11/22/2024 [facility] Work Phone: Comment on above: 1 Occurrences starting 11/23/2023 until 11/22/2024 End: 12-05-2020 COVID-19, Molecular COVID-19, Molecular Microbiology Routine Close Exposure To Covid-19 Virus Cough 1 Occurrences starting 12/06/2019 until 12/05/2020 [facility] Comment on above: 1 Occurrences starting 12/06/2019 until 12/05/2020 End: 01-04-2025 CTA Chest vessels and Abdominal vessels and Pelvis vessels W contrast IV CT Angiogram Chest Abdomen Pelvis Imaging Routine 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) Postoperative leak 1 Occurrences starting 01/05/2024 until 01/04/2025 [facility] Work Phone: Comment on above: 1 Occurrences starting 01/05/2024 until 01/04/2025 End: 05-23-2025 CTA Chest vessels and Abdominal vessels and Pelvis vessels WO and W contrast IV CT Angiogram Abdomen Pelvis Imaging Routine Abdominal aortic aneurysm (AAA) without rupture, unspecified part (HCC) 1 Occurrences starting 05/23/2024 until 05/23/2025 [facility] Work Phone: Comment on above: 1 Occurrences starting 05/23/2024 until 05/23/2025 Cytology report of B richie fluid Cyto stain [facility] Dir rpr ruptd aneury sm abdominal aorta ANEURYSM REPAIR ABDOMINAL AORTIC (AAA) Juxtarenal abdominal aortic aneurysm, ruptured (HCC) [facility] Doppler ultrasonogra phy of artery of lower limb Segmental Doppler Lower Extremity Arterial Vascular Ultrasound Routine Right-sided low back pain with right-sided sciatica, unspecified chronicity Ordered: 07/04/2023 [facility] Work Phone: Comment on above: Ordered: 07/04/2023 End: 06-06-2023 Erythrocyte sedimentation rate Sedimentation Rate Lab Routine Raynaud's phenomenon without gangrene 1 Occurrences starting 06/06/2022 until 06/06/2023 [facility] Work Phone: Comment on above: 1 Occurrences starting 06/06/2022 until 06/06/2023 Factor II (prothromb in) [id number] mutation detection Prothrombin (F2) Mutation (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) Lab Routine 06/11/2022 4:13 AM EST [facility] Factor V Leiden genotype Factor V (F5) Leiden Mutation (R506Q) Lab Routine 06/11/2022 4:13 AM [facility] Work Phone: End: 11-18-2022 Hemoglobin A1c/Hemoglobin.total in Blood Hemoglobin A1c Lab Routine Routine general medical examination at a health care facility 1 Occurrences starting 11/18/2021 until 11/18/2022 [facility] Comment on above: 1 Occurrences starting 11/18/2021 until 11/18/2022 End: 07-03-2018 Hepatitis C Antibody Hepatitis C Antibody Routine Encounter For Hepatitis C Screening Test For Low Risk Patient 1 Occurrences starting 07/03/2017 until 07/03/2018 [facility] Work Phone: Lactate dehydrogenas e [facility] End: 2019 Lipid 1996 panel Lipid Panel Routine Hyperlipidemia, unspecified hyperlipidemia type 1 Occurrences starting 2018 until 2019 [facility] Comment on above: 1 Occurrences starting 2018 until 2019 End: 11-18-2022 Lipid 1996 panel - Serum or Plasma Lipid Panel Lab Routine Routine general medical examination at a health care facility 1 Occurrences starting 11/18/2021 until 11/18/2022 [facility] Comment on above: 1 Occurrences starting 11/18/2021 until 11/18/2022 End: 01-26-2024 Lipid 1996 panel - Serum or Plasma Lipid Panel Lab Routine Familial hypercholesteremia 1 Occurrences starting 01/25/2023 until 01/26/2024 [facility] Comment on above: 1 Occurrences starting 01/25/2023 until 01/26/2024 End: 07-03-2018 Lipid panel Lipid Panel Routine Hyperlipidemia, unspecified hyperlipidemia type 1 Occurrences starting 07/03/2017 until 07/03/2018 [facility] Work Phone: End: 01-18-2023 MG Breast - bilateral Screening Mammography Screening Jose Bilateral Imaging Routine Encounter for screening mammogram for malignant neoplasm of breast 1 Occurrences starting 11/18/2021 until 01/18/2023 [facility] Work Phone: Comment on above: 1 Occurrences starting 11/18/2021 until 01/18/2023 End: 08-23-2024 MR Lumbar spine WO contrast MR Lumbar Spine Without Contrast Imaging Routine Lumbosacral radiculopathy Weakness of right lower extremity Paresthesias 1 Occurrences starting 08/24/2023 until 08/23/2024 [facility] Work Phone: Comment on above: 1 Occurrences starting 08/24/2023 until 08/23/2024 Patient Education [facility] Work Phone: Patient referral [facility] Work Phone: pH of Body fluid [facility] pH of Body fluid [facility] Procedure on tissue specimen Tissue Exam STAT Once for 1 Occurrences starting 09/14/2018 [facility] Comment on above: Once for 1 Occurrences starting 09/15/19 End: 09-28-2021 Thyrotropin [Units/volume] in Serum or Plasma TSH Lab Routine Hypothyroidism, unspecified type 1 Occurrences starting 09/28/2020 until 09/28/2021 [facility] Comment on above: 1 Occurrences starting 09/28/2020 until 09/28/2021 End: 06-06-2023 Thyrotropin [Units/volume] in Serum or Plasma TSH with Reflex Free T4 Lab Routine Hypothyroidism, unspecified type 1 Occurrences starting 06/06/2022 until 06/06/2023 [facility] Comment on above: 1 Occurrences starting 06/06/2022 until 06/06/2023 End: 01-26-2024 Thyrotropin [Units/volume] in Serum or Plasma TSH with Reflex Free T4 Lab Routine Hypothyroidism, unspecified type 1 Occurrences starting 01/25/2023 until 01/26/2024 [facility] Comment on above: 1 Occurrences starting 01/25/2023 until 01/26/2024 End: 04-24-2024 Thyrotropin [Units/volume] in Serum or Plasma TSH with Reflex Free T4 Lab Routine Hypothyroidism, unspecified type 1 Occurrences starting 04/24/2023 until 04/24/2024 [facility] Work Phone: Comment on above: 1 Occurrences starting 04/24/2023 until 04/24/2024 End: 2019 Thyrotropin Qn TSH Routine Hypothyroidism, unspecified type 1 Occurrences starting 2018 until 2019 [facility] Comment on above: 1 Occurrences starting 2018 until 2019 Total protein measurement [facility] End: 01-15-2020 TSH Qn TSH Lab Routine Hypothyroidism, unspecified type 1 Occurrences starting 01/14/2019 until 01/15/2020 [facility] Comment on above: 1 Occurrences starting 01/14/2019 until 01/15/2020 End: 07-03-2018 TSH with Reflex Free T4 TSH with Reflex Free T4 Routine Hypothyroidism, unspecified type 1 Occurrences starting 07/03/2017 until 07/03/2018 [facility] Work Phone: End: 02-25-2025 Ultrasound renal artery stenosis hypertension limited Ultrasound renal artery stenosis hypertension limited Vascular Ultrasound Routine Renal insufficiency 1 Occurrences starting 12/26/2023 until 02/25/2025 [facility] Work Phone: Comment on above: 1 Occurrences starting 12/26/2023 until 02/25/2025 End: 02-25-2025 US Abdominal Aortic Aneurysm Duplex (AAA) US Abdominal Aortic Aneurysm Duplex (AAA) Vascular Ultrasound Routine 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) 1 Occurrences starting 12/26/2023 until 02/25/2025 [facility] Comment on above: 1 Occurrences starting 12/26/2023 until 02/25/2025 End: 01-21-2025 US Doppler ankle/brachial index US Doppler ankle/brachial index Vascular Ultrasound Routine PVD (peripheral vascular disease) (HCC) Ischemia of toe 1 Occurrences starting 11/22/2023 until 01/21/2025 [facility] Work Phone: Comment on above: 1 Occurrences starting 11/22/2023 until 01/21/2025 Immunizations Immunization Date Immunization Notes Care Provider Naveed logan 10-20-2023 Pfizer SARS-CoV-2 Vaccination Cate Contreras CLIMATOLOGY PROFESSOR Work Phone: [facility] 2018 influenza virus vacc ine, unspecified formulation Michelle Littlejohn [facility],PharmD Work Phone: [facility] Payers Date Payer Category Payer Managed Care (unspecified) [employer] HMO QPOS/SELECT [id number] 05-29-2024 Private Health Insurance [id number] 02-29-2024 Self-pay 05-29-2021 Managed Care HMO (unspecified) [facility] HMO/CHOICE PLUS/CATRINA/CATRINA PLUS [id number] 05-29-2021 Unknown [id number] 05-29-2019 Unknown [id number] 05-29-[address] [employer] MMO [facility] [employer] [id number] 05/29/2019-Present [id number]. 2.7.3.536656.315 05-29-2019 Unknown 1.2.840.363354. 1.13.385. 2.7.3.749752.315 03-29-2018 Unknown [id number] 1.2.840.384034.1.13.385. 2.7.3.029316.315 03-29-2017 Private Health Insurance [id number] 2.16.840.1.887642.3.249. 13 06-29-2016 Unknown [id number] 1962 Unknown [id number] 2.16.840.1.905254.3.579. 2.903 1962 Unknown [id number] 2.16.840.1.458546.3.579. 2.903 1962 Unknown [id number] 2.16.840.1.538309.3.579. 2.903 1962 Unknown [id number] 2.16.840.1.347035.3.579. 2.903 1962 Unknown [id number] 2.16.840.1.071817.3.579. 2.903 1962 Unknown [id number] 2.16.840.1.911151.3.579. 2.900 1962 Unknown [id number] 2.16.840.1.811714.3.579. 2.900 1962 Unknown [id number] 2.16.840.1.700702.3.579. 2.900 1962 Unknown [id number] 2.16.840.1.504579.3.579. 2.900 1962 Unknown [id number] 2.16.840.1.190405.3.579. 2.900 1962 Unknown [id number] 2.16.840.1.348175.3.579. 2.903 1962 Unknown [id number] 2.16.840.1.932973.3.579. 2.903 1962 Unknown [id number] 2.16.840.1.697267.3.579. 2.903 1962 Unknown [id number] 2.16.840.1.621006.3.579. 2. 1962 Unknown [id number] 2.16.840.1.832037.3.579. 2. 1962 Unknown [id number] 2.16.840.1.308832.3.579. 2. 1962 Unknown [id number] 2.16.840.1.087595.3.579. 2. 1962 Unknown [id number] 2.16.840.1.163901.3.579. 2 1962 Unknown [id number] 2.16.840.1.817988.3.579. 2 1962 Unknown [id number] 2.16.840.1.412067.3.579. 2 1962 Unknown [id number] 2.16.840.1.872645.3.579. 2 1962 Unknown [id number] 2.16.840.1.192654.3.579. 2 1962 Unknown [id number] 2.16.840.1.855301.3.579. 2. 1962 Unknown [id number] 2.16.840.1.246691.3.579. 2 1962 Unknown [id number] 2.16.840.1.839093.3.579. 2. 1962 Unknown [id number] 2.16.840.1.642514.3.579. 2 1962 Unknown [id number] 2.16.840.1.465277.3.579. 2. 1962 Unknown [id number] 2.16.840.1.890248.3.579. 2.903 1962 Unknown [id number] 2.16.840.1.151203.3.579. 2. 1962 Unknown [id number] 2.16.840.1.035436.3.579. 23 1962 Unknown [id number] 2.16.840.1.281119.3.579. 2 1962 Unknown [id number] 2.16.840.1.598101.3.579. 2 1962 Unknown [id number] 2.16.840.1.432545.3.579. 2 1962 Unknown [id number] 2.16.840.1.238721.3.579. 2 1962 Unknown [id number] 2.16.840.1.001951.3.579. 2 1962 Unknown [id number] 2.16.840.1.652559.3.579. 2 1962 Unknown [id number] 2.16.840.1.850909.3.579. 2 1962 Unknown [id number] 2.16.840.1.322027.3.579. 2 1962 Unknown [id number] 2.16.840.1.656420.3.579. 2 1962 Unknown [id number] 2.16.840.1.266816.3.579. 2 1962 Unknown [id number] 2.16.840.1.927978.3.579. 2 1962 Unknown [id number] 2.16.840.1.683221.3.579. 2 1962 Unknown [id number] 2.16.840.1.189881.3.579. 2 1962 Unknown [id number] 2.16.840.1.464391.3.579. 2.903 Private Health Insurance [id number] 2.16.840.1.310227.3.249. 13 Unknown [id number] 2.16.840.1.124645.3.579. 2.462 Unknown [id number] 2.16.840.1.680560.3.579. 2.462 Unknown [id number] 2.16840.1.095070.3.579. 2.462 Unknown [id number] 2.840.1.048691.3.579. 2.462 Unknown [id number] 2.840.1.885532.3.579. 2.462 Unknown [id number] 2.840.1.750063.3.579. 2.462 Unknown [id number] 2.840.1.437224.3.579. 2.462 Unknown [id number] 2.840.1.908042.3.579. 2.462 Unknown [id number] 2.840.1.229413.3.579. 2.462 Unknown [id number] 2.840.1.646327.3.579. 2.462 Unknown [id number] 2.840.1.936933.3.579. 2.462 Unknown [id number] 2.840.1.115655.3.579. 2.462 Unknown [id number] 2.16.840.1.238805.3.579. 2.462 Unknown [id number] 2.16.840.1.088411.3.579. 2.462 Unknown [id number] 2.16.840.1.342697.3.579. 2.462 Unknown [id number] 2.16.840.1.975291.3.579. 2.462 Unknown [id number] 2.840.1.193446.3.579. 2.462 Unknown [id number] 2.16.840.1.486017.3.579. 2.462 Unknown [id number] 2.16.840.1.127439.3.579. 2.462 Unknown [id number] 2.16.840.1.024513.3.579. 2.462 Unknown [id number] 2.16.840.1.999409.3.579. 2.462 Unknown [id number] 2.16.840.1.918833.3.579. 2.462 Unknown [id number] 2.16.840.1.763952.3.579. 2.462 Unknown [id number] 2.16.840.1.401945.3.579. 2.462 Unknown [id number] 2.16.840.1.647292.3.579. 2.462 Unknown [id number] 2.16.840.1.096266.3.579. 2.462 Unknown [id number] 2.16.840.1.090289.3.579. 2.462 Unknown [id number] 2.16.840.1.094739.3.579. 2.462 Unknown [id number] 2.16.840.1.265011.3.579. 2.462 Unknown [id number] 2.16.840.1.358743.3.579. 2.462 Unknown [id number] 2.16.840.1.786654.3.579. 2.462 Unknown [id number] 2.16.840.1.562982.3.579. 2.462 Unknown [id number] 2.16.840.1.503301.3.579. 2.462 Unknown [id number] 2.16.840.1.580110.3.579. 2.462 Unknown [id number] 2.16.840.1.944303.3.579. 2.462 Unknown [id number] 2.16.840.1.770992.3.579. 2.462 Unknown [id number] 2.16.840.1.772254.3.579. 2.462 Unknown [id number] 2.16.840.1.101749.3.579. 2.462 Unknown [id number] 2.16.840.1.172546.3.579. 2.462 Unknown [id number] 2.16.840.1.945736.3.579. 2.462 Unknown [id number] 2.16.840.1.229730.3.579. 2.462 Unknown [id number] 2.16.840.1.738414.3.579. 2.462 Unknown [id number] 2.16.840.1.027776.3.579. 2.462 Unknown [id number] 2.16.840.1.626333.3.579. 2.462 Unknown [id number] 2.16.840.1.829094.3.579. 2.462 Unknown [id number] 2.16.840.1.642993.3.579. 2.462 Unknown [id number] 2.16.840.1.651531.3.579. 2.462 Unknown [id number] 2.16.840.1.143100.3.579. 2.462 Unknown [id number] 2.16.840.1.166739.3.579. 2.462 Unknown [id number] 2.16.840.1.182591.3.579. 2.462 Unknown [id number] 2.16.840.1.867875.3.579. 2.462 Unknown [id number] 2.16.840.1.730702.3.579. 2.462 Unknown [id number] 2.16.840.1.769872.3.579. 2.462 Unknown [id number] 2.16.840.1.316095.3.579. 2.462 Unknown [id number] 2.16.840.1.171025.3.579. 2.462 Unknown [id number] 2.16.840.1.687439.3.579. 2.462 Unknown [id number] 2.16.840.1.115646.3.579. 2.462 Unknown [id number] 2.16.840.1.556636.3.579. 2.462 Unknown [id number] 2.16840.1.533322.3.579. 2.462 Unknown [id number] 2.16.840.1.429429.3.579. 2.462 Unknown [id number] 2.840.1.262015.3.579. 2.462 Unknown [id number] 2.840.1.049815.3.579. 2.462 Unknown [id number] 2.840.1.570330.3.579. 2.462 Unknown [id number] 2.840.1.146592.3.579. 2.462 Unknown [id number] 2.840.1.698523.3.579. 2.462 Unknown [id number] 2.840.1.557195.3.579. 2.462 Unknown [id number] 2.840.1.504235.3.579. 2.462 Unknown [id number] 2.840.1.983132.3.579. 2.462 Unknown [id number] 2.840.1.275925.3.579. 2.462 Unknown [id number] 2.840.1.617436.3.579. 2.462 Unknown [id number] 2.840.1.469284.3.579. 2.462 Unknown [id number] 2.840.1.173839.3.579. 2.462 Social History Date Type Detail Facility Start: 05-05-1996 End: 08-24-2023 Tobacco smoking status AKIS Current every day smoker [facility] Work Phone: Start: 05-05-1996 End: 10-08-2023 History of tobacco use Cigarette Smoker [facility] Work Phone: Start: 09-05-2017 End: 03-12-2024 Cigarettes smoked current (pack per day) - Reported [facility] Start: 1960 Sex Assigned At Not on file [facility] Work Phone: Start: 05-05-2016 Alcohol Comment Occassionally [facility] Start: 09-14-2018 End: 09-15-2024 Tobacco smoking status AKIS Former smoker [facility] Start: 04-17-2019 End: 12-06-2019 Alcohol intake Current drinker of alcohol (finding) [facility] Start: 01-14-2019 End: 09-29-2020 History SDOH Social Connections Get Together 4 [facility] Start: 01-14-2019 End: 05-12-2021 History SDOH Food Worry 1 [facility] Start: 05-05-1996 End: 11-28-2022 Tobacco smoking status AKIS Current some day smoker [facility] Start: 10-25-2021 End: 10-25-2022 Exposure to SARS-CoV-2 (event) Not sure [facility] Start: 12-06-2019 End: 12-26-2023 Tobacco use and exposure Never used [facility] Start: 09-29-2020 History SDOH Financial 5 [facility] Start: 05-12-2021 End: 11-18-2021 History SDOH Social Connections Phone 2 [facility] Start: 04-06-2022 End: 07-29-2024 Alcohol intake Ex-drinker (finding) [facility] Start: 06-13-2022 End: 11-28-2022 Tobacco Comment I am down to 4 cigerettes a day [facility] Start: 05-12-2021 End: 03-12-2024 Social connection and isolation panel [facility] Frequency of Social Gatherings with Friends and Family Not on file [facility] How often to you hav e a drink containing alcohol? Monthly or less [facility] How many standard drinks containing alcohol do you have on a typical day? 1 or 2 [facility] How often do you hav e 6 or more drinks on 1 occasion? Never [facility] (I/We) worried wheth er (my/our) food would run out before (I/we) got money to buy more. Never true [facility] In the past 12 month s, was there a time when you were not able to pay the mortgage or rent on time? No [facility] Start: 12-04-2017 Gender identity Identifies as female gender (finding) [facility] Start: 12-04-2017 Sexual orientation Heterosexual (finding) [facility] Start: 05-05-1996 End: 10-08-2023 History of tobacco use Current smoker [facility] Start: 08-14-2024 End: 09-15-2024 Sex Female (finding) [facility] Start: 1960 Sex Assigned At Female [facility] Medical Equipment Procedure Code Equipment Code Equipment Origin al Text Equipment Identifier Dates EGD, with monitored anesthesia care FDA Start: 07-24-2024 EGD, with monitored anesthesia care [id number] FDA Start: 08-03-2024 EGD, with monitored anesthesia care FDA Start: 07-24-2024 EGD, with monitored anesthesia care FDA Start: 07-24-2024 EGD, with monitored anesthesia care FDA Start: 07-24-2024 EGD, with monitored anesthesia care FDA Start: 07-24-2024 EGD, with monitored anesthesia care FDA Start: 07-24-2024 EGD, with monitored anesthesia care FDA Start: 07-24-2024 EGD, with monitored anesthesia care FDA Start: 07-24-2024 EGD, with monitored anesthesia care FDA Start: 07-24-2024 Closure Perclose Prostyle - [id number])[id number], 2010695_imp FDA Start: 10-09-2023 Endograft 26 X 14.5mm 12cm Excluder Comformable Trunk - [id number])[id number], 0_imp, _exp FDA Start: 10-09-2023 Endograft 12mm X 12cm Excluder Leg - [id number] ()[id number])[id number], 201070_[facility] FDA Start: 10-10-2023 Comment on above: Description: RIGHT E XTENDER Endograft 12mm X 14cm Contralateral Leg Excluder [id number] - [id number] ()[id number])[id number], 201070_[facility] FDA Start: 10-10-2023 Comment on above: Description: LEFT CO NTRALATERAL LEG Stent 6 X 39mm 1 35cm Viabahn Vbx - [id number] ()[id number])[id number], _[facility] FDA Start: 10-09-2023 Comment on above: Description: LEFT RE NAL Tray 14fr 24cm S plit Cath Iii - [id number]_[facility] Start: 02-01-2024 Graft 20 X 10mm 40cm Hemashield Bifurcated - [id number] ()[id number] [id number](17)28 [id number])[id number]) [id number], 3184_[facility] FDA Start: 01-24-2024 Hemostat 2 X 4in Surgicel Fibrillar - [id number])10 [id number], 3084_imp FDA Start: 01-24-2024 Syringe 10ml Pre-Filled 5pk Bioglue - [id number] 3197_[facility] Start: 01-24-2024 Goals Date Patient Goal Desired Activity /State Functional Status Date Assessment Result Facility 08-17-2024 Functional status Bedrest [facility] Work Phone: 08-13-2024 Functional status Bedrest [facility] Work Phone: 07-29-2024 Functional status Bedrest [facility] Work Phone: Mental Status Date Assessment Result Facility 08-17-2024 Cognitive function Voice/Name [facility] Work Phone: 08-13-2024 Cognitive function Voice/Name [facility] Work Phone: 07-29-2024 Cognitive function Voice/Name [facility] Work Phone: 07-18-2024 Cognitive function Awake;Drowsy [facility] Work Phone: Clinical Notes 07-29-2020 to 09-15-2024 Sol Huerta RN - 08/23/2024 4:25 PM EDT Note Date & Type Note Facility 09-15-2024 Radiology Diagnostic study note [facility] 08-23-2024 History of Present illness Narrative Call placed re: recall for testing and f/u office visit with Dr. Guerra s/p AAA repair 01/24/24. Spoke with patient's sister, Sriram, who advised that patient is still in SNF who will not transport to testing and family is unable to transport. She reports patient was recently hospitalized and is still very weak. Requested that f/u testing be delayed at this time; recall adjusted to 12 mo f/u. documented in this encounter [facility] 08-17-2024 Discharge summary Note Date/Time August 17, 2024 9:32am [facility] Medical Records Department [address] [place] [address] Discharge Summary 08/17/24 0922 MR#: [id number] Acct: [id number] Name: SCOTT OBREGON Rep #:[id number] : 1960 64 From: Nikolas Bradley PCP: Millie Massey MD Status:ADM IN Location: [place] [id number] Providers Date of Admission: 08/14/24 Date of Discharge: 08/17/24 Primary Care Physician: Dr. Millie Massey MD Consultations 08/14/24 11:51 Consult: Nephrology Routine Consulting Provider: Angie Torres Reason for Consult: esrd on HD, NEED HD today EMERGENT Consult: No MD Notified: Yes Date Notified: 08/14/24 Time Notified: 11:51 Method of Notification: Verbal Reason For Visit: ANASARCA, SOB Diagnosis Discharge Diagnosis (1) Pulmonary edema: Status: Acute Code(s): J81.1 - Chronic pulmonary edema (2) Anasarca: Status: Acute Code(s): R60.1 - Generalized edema Plan This is a 64-year-old female being admitted for shortness of breath, tachypnea and dyspnea, bilateral lower extremity edema and chest x-ray finding of small tomoderate bilateral effusion and pleural treatment 1. Pulmonary edema/anasarca due to ESRD on hemodialysis and possible heart failure: Patient is being admitted in PCU. 2D echo is ordered. Heart failure core measures including intake and output, fluid restriction less than 1500 mL, daily weight monitoring, light Naif wrap bandage, kidney and electrolytes monitoring. Lasix 40 mg IV 1 dose ordered. 08/15: Patient shortness of breath got much better after dialysis yesterday. Currently on 2 L of oxygen 08/16: Shortness of breath is better. Patient currently on room air 2. Bilateral pleural effusion, small to moderate: This was present on the previous CT chest does not seem increased. Chest ultrasound with diagnostic thoracocentesis and fluid analysis labs ordered to confirm whether enough fluid for thoracocentesis but from chest x-ray discussed with Dr. Fox Contreras and seems small pleural effusion 08/16: Pleural fluid culture shows no organisms. Blood culture negative for morethan 48 hours. Patient had 520 mL fluid aspirated on 08/15. It is transudative in nature 08/17: At times patient is on room air. Currently 96% on room air. No hypoxia. Blood pressure is controlled in acceptable range 152/76 as sometimes she gets hypotensive. 3. Recent PEG tube bumper ruptured with complex abdominal fluid collection in the abdominal cavity and the abnormal CT abdomen during last admission: Patient had 8 days of IV Zosyn during last admission. EGD on 08/03/2024 reviewed Impressions : - Normal esophagus. - Dislodged gastrostomy tube present characterized by ulceration. Treated with argon plasma coagulation (APC). - A non-bleeding large defect due to buried peg tube bumper was found in the stomach. Clips were placed. - No gross lesions in the duodenal bulb. Continue tube feed feeding. 4. Severe anemia that required blood transfusion during last admission from CKD/ruptured PEG tube: Her hemoglobin was 6.6 on 08/12 increased to 8.7. MCV normal. Platelet count 100 47K. Monitor hemoglobin. Anticoagulants contraindicated. She required PRBC transfusion during last admission 08/15: H&H is 7.3/24.6%. Monitor CBC. 08/16 H&H 9.1/30.5%. Platelet 179K. 08/17: H&H 10.5/34.6% 5 severe protein-calorie malnutrition: Her BMI was 12.6 kg/m?. Increased to 16.7 kg/m?. Continue nutrition consult and follow-up. On tube feed Jevity 1.5,50 cc/h. 08/16: Patient having bowel cramps/abdominal cramps probably due to tube feed. Advised to hold tube feeds for now. Bentyl as needed ordered for abdominal cramps 6. Chronic Open abdominal wall wound: Chronic since February 2024. Had wound VAC at that time. Continue follow-up with the wound care. Healing good. End stage renal disease: Secondary to ATN from hemorrhagic shock and never had recovery. Patient on dialysis every Monday. Pst Specialist consulted 08/15: She feels much better after dialysis. 08/16: GPC possible Enterococcus 11,000?25. Growing GNR lactose shrimper 1000-10,000 mixed organisms suggestive of contamination and below pathology range. No antibiotic indicated. UTI ruled out. 08/17: Patient had hemodialysis yesterday. 7. Factor V Leiden deficiency hold off on her aspirin for now. 8. Hypertension: BP usually normal 131-136 and drops 95/70 mmHg during hemodialysis on Lasix. Hold antihypertensive medication. 9. Hypothyroidism: Continue levothyroxine 10. History of C. difficile: During previous admission, C. difficile antigen was positive but toxin is negative. Does not have active symptoms abdominal pain or cramps or diarrhea. No treatment indicated 11. Depression: Continue sertraline. 12. 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 Present since last admission VTE prophylaxis with SCDs for now Living will/advanced directive/end of life care: Patient does not have living will or advanced directive but has legal power of bankruptcy attorney for health.. After discussion of benefits/risks procedures involved with full code, DNR CC arrest and DNR CC, the patient opted for DNR CC arrest with no intubation. I explainedthe risk and benefit of CPR or intubation, DC shock, central line. Patient doesn't want artificial life support including intubation, ventilator and/chest compression but want central venous catheter, vasopressor and DC shock if needed Microbiology Past 72 Hours 08/15/24 09:19 Fluid - Pleural (Lung) Gram Stain - Final 08/15/24 09:19 Fluid - Pleural (Lung) Body Fluid Culture - Preliminary No growth-Final to follow 08/14/24 08:48 Urine Catheter - Gutiérrez Urine Culture - Preliminary Enterococcus faecium GNR lactose shrimper 08/14/24 08:50 Blood Culture (Wb) - Anticubital Left Blood Culture - Preliminary No growth in 48 hours. 08/14/24 07:48 Blood Culture (Wb) - Anticubital Left Blood Culture - Preliminary No growth in 48 hours. 08/14/24 07:35 Mucosa - Nose SARS-CoV-2, Influenza & RSV (PCR) - Final Laboratory Results 08/16/24 09:41: POC Glucose 24 L* 08/16/24 11:22: Glucose 109 H 08/16/24 21:19: Glucose 91 08/17/24 00:21: Glucose 73 08/17/24 06:14: WBC 4.4, RBC 3.70 L, Hgb 10.5 L, Hct 34.6 L, MCV 93.5, MCH 28.4,MCHC 30.3 L, RDW Std Deviation 74.1 H, RDW Coeff of Monika 23.1 H, Plt Count 146 L,MPV 9.2, Immature Gran % (Auto) 1.800 H, Neut % (Auto) 73.5 H, Lymph % (Auto) 13.4 L, Erath % (Auto) 7.0, Eos % (Auto) 3.4, Baso % (Auto) 0.9, Absolute Neuts (auto) 3.2, Absolute Lymphs (auto) 0.59 L, Nucleated RBC % 0, Polychromasia 2+, Anisocytosis 1+, Ovalocytes 1+, Sodium 133, Potassium 4.7, Chloride 101, Carbon Dioxide 19.8 L, Anion Gap 12, BUN 22 H, Creatinine 1.07, Estim Creat Clear Calc 42.17 L, Est GFR (MDRD) Non-Af 59 L, BUN/Creatinine Ratio 20.8 H, Glucose 83, Calcium 8.2 Medications at Discharge Home Medications aspirin 81 mg tablet,delayed release (Adult Aspirin Regimen) 81 mg PO DAILY 03/11/24 atorvastatin 20 mg tablet 20 mg PO QHS 03/11/24 metoprolol tartrate 25 mg tablet 25 mg PO BID 03/11/24 thiamine HCl (vitamin B1) 100 mg tablet 100 mg PO BID 04/11/24 cyclobenzaprine 5 mg tablet 5 mg PO Q8H PRN MUSCLE SPASMS 06/05/24 Lactobacillus rhamnosus GG 10 billion cell capsule (Culturelle) 1 cap PO DAILY 07/18/24 acetaminophen 325 mg tablet 650 mg PO Q4H PRN fever 07/18/24 aluminum-magnesium hydroxide 200 mg-200 mg/5 mL oral suspension 30 ml PO Q4H PRNGI DISTRESS 07/18/24 amlodipine 5 mg tablet 5 mg PO QHS 07/18/24 docusate sodium 100 mg tablet 100 mg PO BID PRN constipation 07/18/24 dronabinol 2.5 mg capsule (Marinol) 2.5 mg PO BID 07/18/24 guaifenesin 100 mg/5 mL oral liquid 200 mg PO Q4H PRN cough 07/18/24 levothyroxine 200 mcg tablet 200 mcg PO DAILY 07/18/24 midodrine 10 mg tablet 10 mg PO DAILY PRN for SBP lower than 110 during dialysistx 07/18/24 ondansetron 4 mg disintegrating tablet 4 mg PO DAILY PRN nausea and vomiting 07/18/24 oxycodone 5 mg tablet 5 mg PO Q6H PRN pain 07/18/24 polyethylene glycol 3350 17 gram/dose oral powder 17 g PO QODAY 07/18/24 sennosides 8.6 mg-docusate sodium 50 mg tablet (Senna Plus) 1 tab-cap PO DAILY PRN constipation 07/18/24 sertraline 25 mg tablet 25 mg PO DAILY 07/18/24 vitamin B complex-vitamin C-folic acid 0.8 mg tablet (Renal Vitamin) 1 tab PO DAILY 07/18/24 bisacodyl 10 mg rectal suppository 10 mg MT DAILY PRN constipation 07/31/24 cholecalciferol (vitamin D3) 125 mcg (5,000 unit) capsule 125 mcg PO DAILY 07/31/24 glucagon HCl 1 mg solution for injection (Glucagon (HCl) Emergency Kit) 1 mg IM Q20M PRN hypoglycemia 07/31/24 ascorbic acid (vitamin C) 500 mg tablet 500 mg PO DAILY #0 tabs 08/13/24 ferrous sulfate 325 mg (65 mg iron) tablet 325 mg PO QODAY #30 tabs 08/13/24 loperamide 2 mg capsule 2 mg PO Q4H PRN DIARRHEA #0 caps 08/13/24 acetaminophen 650 mg rectal suppository 650 mg MT Q4H PRN fever or pain 08/14/24 dextrose 40 % oral gel (Glucose Gel) 10 g PO Q15M PRN hypoglycemia 08/14/24 mirtazapine 15 mg tablet 15 mg PO QHS 08/14/24 sodium phosphates 19 gram-7 gram/118 mL enema (Enema) 118 ml MT DAILY PRN constipation 08/14/24 IV with Additives 50 mls/hr GT 08/17/24 pantoprazole 40 mg tablet,delayed release 40 mg PO DAILY #0 tabs 08/17/24 Physical Exam Narrative Seen and examined. No acute issues overnight. Patient not short of breath but feels mild abdominalcramps on tube feed Physical exam General: Alert, Oriented x3, Cooperative, BMI 16.7 kg/m? HEENT: Atraumatic, PERRLA, EOMI, Normocephalic Oral: No Gingival or Mucosal Lesions/ Ulcerations Neck: Supple, No JVD, Negative Carotid Bruits Chest wall/Lungs: Air entry diminished in bilateral lung bases. No crepitation/rhonchi Cardiovascular: Regular rate, Regular Rhythm, Normal S1, Normal S2, No M/G/R Abdomen: PEG tube. Dressing on the left upper quadrant abdominal wall ulcer, healing with granulation tissue. Bowel Sounds Present, soft, nontender : No dysuria. No renal angle tenderness. No suprapubic tenderness. Extremities: Bilateral pitting edema from thigh downward, stage II decubitus coccygeal ulcer present since last admission Musculoskeletal: No Tenderness to Palpation of Joints or Extremities, chronic severe muscle atrophy. ROM restricted Neurological: Cranial nerves II-XII grossly intact, DTR 2+/4. Muscle power 3/5at major joints Psych/Mental Status: Flat affect, amnesia/MCI Weight / BMI Weight Weight: 108 lb 0.424 oz Body Mass Index (BMI) 14.6 ABG / Lab / Microbiology Data 08/17/24 06:14 08/17/24 06:14 Laboratory: Laboratory Results - last 24 hr 08/16/24 09:41: POC Glucose 24 L* 08/16/24 11:22: Glucose 109 H 08/16/24 21:19: Glucose 91 08/17/24 00:21: Glucose 73 08/17/24 06:14: WBC 4.4, RBC 3.70 L, Hgb 10.5 L, Hct 34.6 L, MCV 93.5, MCH 28.4,MCHC 30.3 L, RDW Std Deviation 74.1 H, RDW Coeff of Monika 23.1 H, Plt Count 146 L,MPV 9.2, Immature Gran % (Auto) 1.800 H, Neut % (Auto) 73.5 H, Lymph % (Auto) 13.4 L, Erath % (Auto) 7.0, Eos % (Auto) 3.4, Baso % (Auto) 0.9, Absolute Neuts (auto) 3.2, Absolute Lymphs (auto) 0.59 L, Nucleated RBC % 0, Polychromasia 2+, Anisocytosis 1+, Ovalocytes 1+, Sodium 133, Potassium 4.7, Chloride 101, Carbon Dioxide 19.8 L, Anion Gap 12, BUN 22 H, Creatinine 1.07, Estim Creat Clear Calc 42.17 L, Est GFR (MDRD) Non-Af 59 L, BUN/Creatinine Ratio 20.8 H, Glucose 83, Calcium 8.2 Microbiology: Microbiology 08/15/24 09:19 Fluid - Pleural (Lung) Gram Stain - Final 08/15/24 09:19 Fluid - Pleural (Lung) Body Fluid Culture - Preliminary No growth-Final to follow 08/14/24 08:48 Urine Catheter - Gutiérrez Urine Culture - Preliminary Enterococcus faecium GNR lactose shrimper 08/14/24 08:50 Blood Culture (Wb) - Anticubital Left Blood Culture - Preliminary No growth in 48 hours. 08/14/24 07:48 Blood Culture (Wb) - Anticubital Left Blood Culture - Preliminary No growth in 48 hours. 08/14/24 07:35 Mucosa - Nose SARS-CoV-2, Influenza & RSV (PCR) - Final D/C Instructions DC O2, CPAP, BIPAP Needs Home O2 Discharge instructions: Yes Type of respiratory needs?: Oxygen Oxygen frequency: Continuous Continuous oxygen liters per minute: 2 DC home with Oxygen: Yes Home O2 MD Review: I have reviewed the oxygen testing, and the patient qualifies for home oxygen equipment and portability. The patient is mobile in the home and the community. Meaningful Use Info Meaningful Use Meaningful Use Diagnoses (Choose all that apply): None applicable Ischemic Stroke Statin Dosing Therapy Reference: STATIN DOSE THERAPY REFERENCE: * Patients > 75 years receive moderate or high dose statin therapy. * Patients 75 years or YOUNGER should receive HIGH intensity statin dose unless contraindicated. You will be required to document reason for non-treatment if statin daily dose does not meet guidelines. HIGH DOSE STATIN THERAPY DAILY Atorvastatin > than or = to 40 mg Rosuvastatin > than or = to 20 mg Amlodipine + Atorvastatin > than or = to 2.5/40 mg Ezetimibe + Simvastatin 10/80 mg Simvastatin 80mg Discharge Plan Admission Admit Date/Time: 08/14/24 11:52 Attending Provider: Nikolas Magaña Primary Care Provider: Millie Massey Consulting Providers: Angie Torres Instructions Patient Instructions: SYL RN Thoracentesis Dc Discharge Orders/Prescriptions Prescriptions: New pantoprazole 40 mg Tablet,Delayed Release (Dr/Ec) 40 mg PO DAILY Qty: 0 0RF IV with Additives Jevity 1.5 1000 ML 50 mls/hr GT Hold for bowel cramps for 1-2 hour Ordered By: Nikolas Magaña MD Last Taken: 08/16/24 21:25 50 mls/hr Continued cyclobenzaprine 5 mg tablet 5 mg PO Q8H PRN (Reason: MUSCLE SPASMS) acetaminophen 325 mg tablet 650 mg PO Q4H PRN (Reason: fever) guaifenesin 100 mg/5 mL liquid 200 mg PO Q4H PRN (Reason: cough) dronabinol [Marinol] 2.5 mg capsule 2.5 mg PO BID Rx Instructions: administer before lunch and evening meal/dinner sertraline 25 mg tablet 25 mg PO DAILY Renal Vitamin 0.8 mg tablet 1 tab PO DAILY polyethylene glycol 3350 17 gram/dose powder 17 g PO QODAY Rx Instructions: EVERY OTHER DAY AT BED TIME ondansetron 4 mg tablet,disintegrating 4 mg PO DAILY PRN (Reason: nausea and vomiting) docusate sodium 100 mg tablet 100 mg PO BID PRN (Reason: constipation) midodrine 10 mg tablet 10 mg PO DAILY PRN (Reason: for SBP lower than 110 during dialysis tx) Rx Instructions: for SBP lower than 110 during dialysis tx acetaminophen 650 mg suppository 650 mg MT Q4H PRN (Reason: fever or pain) Enema 19-7 gram/118 mL enema 118 ml MT DAILY PRN (Reason: constipation) Rx Instructions: NEEDED FOR CONSTIPATION FOR 2 EPISODES IF DULCOLAX SUPP INEFFECTIVE. CALL PHYSICIAN IF NO BM X4 DAYS dextrose [Glucose Gel] 40 % gel 10 g PO Q15M PRN (Reason: hypoglycemia) Rx Instructions: until symptoms of low blood sugar are controlled mirtazapine 15 mg tablet 15 mg PO QHS aspirin [Adult Aspirin Regimen] 81 mg tablet,delayed release (DR/EC) 81 mg PO DAILY Patient Comments: HOLD UNTIL 08/20/24 atorvastatin 20 mg tablet 20 mg PO QHS metoprolol tartrate 25 mg tablet 25 mg PO BID oxycodone 5 mg tablet 5 mg PO Q6H PRN (Reason: pain) thiamine HCl (vitamin B1) 100 mg tablet 100 mg PO BID amlodipine 5 mg tablet 5 mg PO QHS levothyroxine 200 mcg tablet 200 mcg PO DAILY sennosides-docusate sodium [Senna Plus] 8.6-50 mg tablet 1 tab-cap PO DAILY PRN (Reason: constipation) Culturelle 10 billion cell capsule 1 cap PO DAILY aluminum-magnesium hydroxide 200-200 mg/5 mL suspension 30 ml PO Q4H PRN (Reason: GI DISTRESS) bisacodyl 10 mg suppository 10 mg MT DAILY PRN (Reason: constipation) glucagon HCl [Glucagon (HCl) Emergency Kit] 1 mg recon soln 1 mg IM Q20M PRN (Reason: hypoglycemia) Rx Instructions: until target blood sugar attained cholecalciferol (vitamin D3) 125 mcg (5,000 unit) capsule 125 mcg PO DAILY loperamide 2 mg Capsule 2 mg PO Q4H PRN (Reason: DIARRHEA) Qty: 0 0RF Patient Comments: START DATE-08/13/24 END DATE-08/20/24 Rx Instructions: For about 1 week as needed for diarrhea ascorbic acid (vitamin C) 500 mg Tablet 500 mg PO DAILY Qty: 0 0RF ferrous sulfate 325 mg (65 mg iron) tablet 325 mg PO QODAY Qty: 30 2RF Discontinued pantoprazole 40 mg Tablet,Delayed Release (Dr/Ec) 40 mg PO BID Qty: 0 2RF Patient Comments: START DATE- 08/13/24 END DATE- 11/12/24 Rx Instructions: For total of 3 months to heal gastric ulcer Referrals / Follow Up: Millie Massey MD [Primary Care Provider] - Disposition Disposition (needs filled in before D/C Order can be placed): NonSkilled NH/Intermed Care Charges/Coding Visit Charges Inpatient E&M: 19712 Disch Hosp >30min 08/17/24 0932 <Electronically signed by Nikolas Magaña MD> Cosigner Signature (if applicable): CC: Dr. Nikolas Maagña MD; Millie Massey MD~ Signed [facility] Work Phone: [phone] 867-834803-22-2025 Discharge summary Author Nikolas Magaña [facility] Note Date/Time August 17, 2024 9:2 2am [facility] Medical Records Department [address] [place] [id number] Transfer to [facility] MR#: [id number] Acct: [id number] Name: SCOTT OBREGON Rep #:[id number] : 1960 64 From: Nikolas Bradley PCP: Millie Massey MD Status:ADM IN Certification of patient admission REQUIRED AT TIME OF ADMISSION. I CERTIFY THAT POST-HOSPITAL ECF SERVICES ARE REQUIRED TO BE GIVEN ON AN IN-PATIENT BASIS BECAUSE OF THE ABOVE NAMED PATIENT'S NEED FOR FPC CARE ON A CONTINUING BASIS FOR THE CONDITION(S) FOR WHICH HE/SHE WAS RECEIVING IN-PATIENT HOSPITAL SERVICES PRIOR TO HIS/HER TRANSFER TO THE [facility]. 08/17/24921<Electronically signed by Nikolas Magaña MD> Diet Diet Order/Speech Therapy: 08/15/24 13:13 Diet: Renal - General Food consistency:: Easy to Chew Liquid Consistency:: Regular/Thin Diet Comments: Alternate bites/sips, sit as upright as tolerated during and 30min after po Routine Orders/Code Status Suppository Type: Dulcolax 10mg Suppository Frequency: Daily PRN DC O2, CPAP, BIPAP needs Home O2 Discharge instructions: Yes Type of respiratory needs?: Oxygen Oxygen frequency: Continuous Continuous oxygen liters per minute: 2 Wound(s) LLQ: Wound Type: nonhealing wound Dressing Change: AntiMicrobial (Aquacel AG, etc) coccyx: Wound Type: Abrasion Dressing Change: foam dressing left great toe: Wound Type: dry eschar right great toe: Wound Type: dry eschar Therapies Extremity Affected:: Bilateral Lower Physical Therapy: Eval and Treat Occupational Therapy: Eval and Treat Speech Therapy: Eval and Treat Problem/Diagnosis (1) Pulmonary edema: Status: Acute Code(s): J81.1 - Chronic pulmonary edema (2) Anasarca: Status: Acute Code(s): R60.1 - Generalized edema Plan This is a 64-year-old female being admitted for shortness of breath, tachypnea and dyspnea, bilateral lower extremity edema and chest x-ray finding of small tomoderate bilateral effusion and pleural treatment 1. Pulmonary edema/anasarca due to ESRD on hemodialysis and possible heart failure: Patient is being admitted in PCU. 2D echo is ordered. Heart failure core measures including intake and output, fluid restriction less than 1500 mL, daily weight monitoring, light Naif wrap bandage, kidney and electrolytes monitoring. Lasix 40 mg IV 1 dose ordered. 08/15: Patient shortness of breath got much better after dialysis yesterday. Currently on 2 L of oxygen 08/16: Shortness of breath is better. Patient currently on room air 2. Bilateral pleural effusion, small to moderate: This was present on the previous CT chest does not seem increased. Chest ultrasound with diagnostic thoracocentesis and fluid analysis labs ordered to confirm whether enough fluid for thoracocentesis but from chest x-ray discussed with Dr. Fox Contreras and seems small pleural effusion 08/16: Pleural fluid culture shows no organisms. Blood culture negative for morethan 48 hours. Patient had 520 mL fluid aspirated on 08/15. It is transudative in nature 3. Recent PEG tube bumper ruptured with complex abdominal fluid collection in the abdominal cavity and the abnormal CT abdomen during last admission: Patient had 8 days of IV Zosyn during last admission. EGD on 08/03/2024 reviewed Impressions : - Normal esophagus. - Dislodged gastrostomy tube present characterized by ulceration. Treated with argon plasma coagulation (APC). - A non-bleeding large defect due to buried peg tube bumper was found in the stomach. Clips were placed. - No gross lesions in the duodenal bulb. Continue tube feed feeding. 4. Severe anemia that required blood transfusion during last admission from CKD/ruptured PEG tube: Her hemoglobin was 6.6 on 08/12 increased to 8.7. MCV normal. Platelet count 100 47K. Monitor hemoglobin. Anticoagulants contraindicated. She required PRBC transfusion during last admission 08/15: H&H is 7.3/24.6%. Monitor CBC. 08/16 H&H 9.1/30.5%. Platelet 179K. 5 severe protein-calorie malnutrition: Her BMI was 12.6 kg/m?. Increased to 16.7 kg/m?. Continue nutrition consult and follow-up. On tube feed Jevity 1.5,50 cc/h. 08/16: Patient having bowel cramps/abdominal cramps probably due to tube feed. Advised to hold tube feeds for now. Bentyl as needed ordered for abdominal cramps 6. Chronic Open abdominal wall wound: Chronic since February 2024. Had wound VAC at that time. Continue follow-up with the wound care. Healing good. End stage renal disease: Secondary to ATN from hemorrhagic shock and never had recovery. Patient on dialysis every Monday. Pst Specialist consulted 08/15: She feels much better after dialysis. 08/16: GPC possible Enterococcus 11,000?25. Growing GNR lactose shrimper 1000- 10,000 mixed organisms suggestive of contamination and below pathology range. No antibiotic indicated. UTI ruled out. 7. Factor V Leiden deficiency hold off on her aspirin for now. 8. Hypertension: BP usually normal 131-136 and drops 95/70 mmHg during hemodialysis on Lasix. Hold antihypertensive medication. 9. Hypothyroidism: Continue levothyroxine 10. History of C. difficile: During previous admission, C. difficile antigen was positive but toxin is negative. Does not have active symptoms abdominal pain or cramps or diarrhea. No treatment indicated 11. Depression: Continue sertraline. 12. 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 Present since last admission VTE prophylaxis with SCDs for now Living will/advanced directive/end of life care: Patient does not have living will or advanced directive but has legal power of bankruptcy attorney for health.. After discussion of benefits/risks procedures involved with full code, DNR CC arrest and DNR CC, the patient opted for DNR CC arrest with no intubation. I explainedthe risk and benefit of CPR or intubation, DC shock, central line. Patient doesn't want artificial life support including intubation, ventilator and/chest compression but want central venous catheter, vasopressor and DC shock if needed Microbiology Past 72 Hours 08/15/24 09:19 Fluid - Pleural (Lung) Gram Stain - Final 08/14/24 08:48 Urine Catheter - Gutiérrez Urine Culture - Preliminary GPC Poss Enterococcus sp GNR lactose shrimper 08/14/24 07:35 Mucosa - Nose SARS-CoV-2, Influenza & RSV (PCR) - Final Laboratory Results 08/14/24 19:01: POC Glucose 137 H 08/15/24 04:47: WBC 4.1 L, RBC 2.71 L, Hgb 7.6 L, Hct 24.6 L, MCV 90.8, MCH 28.0, MCHC 30.9 L, RDW Std Deviation 69.5 H, RDW Coeff of Monika 21.3 H, Plt Count 159, MPV 10.8, Immature Gran % (Auto) 2.400 H, Neut % (Auto) 76.6 H, Lymph % (Auto) 10.9 L, Erath % (Auto) 7.0, Eos % (Auto) 2.4, Baso % (Auto) 0.7, Absolute Neuts (auto) 3.2, Absolute Lymphs (auto) 0.45 L, Nucleated RBC % 0, Anisocytosis1+, [place] [address] H, Triglycerides 71, Cholesterol 62, LDL Cholesterol, Calc 23, VLDL Cholesterol 14, HDL Cholesterol 25 L, Cholesterol/HDL Ratio 2.48, TSH 10.600 H 08/15/24 05:51: POC Glucose 104 08/15/24 09:02: Fluid pH Pending, Fluid Glucose 111, Fluid Total Protein 1.9, Fluid LDH 51, Fluid Amylase Pending 08/15/24 09:20: Fluid Source THORACENTESIS, Fluid Color LT YEL, Fluid AppearanceCLEAR, Fluid WBC 0.023, Fluid RBC 6, Fluid Tot Cell Count 0.024 H, Fld Polynuclear WBCs # 0.002, Fld Polynuclear WBCs % 8.7, Fluid Mononuclear WBCs 0.021, Fld Mononuclear WBCs % 91.3, Fluid Neutrophils 4, Fluid Lymphocytes 32, Fluid Monocytes 60, Fld Mesothelial Cells 4, Fl Pathologist Comment May follow, Fluid Comment 2 SEE COMMENT 08/15/24 09:25: Miscellaneous Cytology Pending 08/15/24 10:01: POC Glucose 70 L 08/15/24 15:45: POC Glucose 90 Allergies/Procedures Done in Hospital Allergies iodine Allergy (Intermediate, Verified 08/14/24 07:32) Nausea shellfish derived Allergy (Intermediate, Verified 08/14/24 07:32) Nausea Type of Care/Length of Stay Estimated LOS: More Than 30 Days Type of Care Needed: Intermediate Rehab Potential: Fair Prognosis: Fair Additional Orders/Day of Discharge Day of Discharge: 08/17/24 Dietary and Speech Recommendations Dietitian Recommendations/Changes: Recommend via PEG tube Jevity 1.5 at 50mL/hr x 24hours with 60mL water flush q4 hours to meet estimated nutrition needs. Will order 4oz Pramod BID medpass once diet has been advanced. Advance diet as tolerated to Regular with texture/consistency per MUSIC TEACHER when medically able for pleasure. Discharge Plan Admission Admit Date/Time: 08/14/24 11:52 Attending Provider: Nikolas Magaña Primary Care Provider: Millie Massey Consulting Providers: Angie Torres Instructions Patient Instructions: SYL MEJIA Thoracentesis Dc Discharge Orders/Prescriptions Prescriptions: New pantoprazole 40 mg Tablet,Delayed Release (Dr/Ec) 40 mg PO DAILY Qty: 0 0RF IV with Additives Jevity 1.5 1000 ML 50 mls/hr GT Hold for bowel cramps for 1-2 hour Ordered By: Nikolas Magaña MD Last Taken: 08/16/24 21:25 50 mls/hr Continued cyclobenzaprine 5 mg tablet 5 mg PO Q8H PRN (Reason: MUSCLE SPASMS) acetaminophen 325 mg tablet 650 mg PO Q4H PRN (Reason: fever) guaifenesin 100 mg/5 mL liquid 200 mg PO Q4H PRN (Reason: cough) dronabinol [Marinol] 2.5 mg capsule 2.5 mg PO BID Rx Instructions: administer before lunch and evening meal/dinner sertraline 25 mg tablet 25 mg PO DAILY Renal Vitamin 0.8 mg tablet 1 tab PO DAILY polyethylene glycol 3350 17 gram/dose powder 17 g PO QODAY Rx Instructions: EVERY OTHER DAY AT BED TIME ondansetron 4 mg tablet,disintegrating 4 mg PO DAILY PRN (Reason: nausea and vomiting) docusate sodium 100 mg tablet 100 mg PO BID PRN (Reason: constipation) midodrine 10 mg tablet 10 mg PO DAILY PRN (Reason: for SBP lower than 110 during dialysis tx) Rx Instructions: for SBP lower than 110 during dialysis tx acetaminophen 650 mg suppository 650 mg MT Q4H PRN (Reason: fever or pain) Enema 19-7 gram/118 mL enema 118 ml MT DAILY PRN (Reason: constipation) Rx Instructions: NEEDED FOR CONSTIPATION FOR 2 EPISODES IF DULCOLAX SUPP INEFFECTIVE. CALL PHYSICIAN IF NO BM X4 DAYS dextrose [Glucose Gel] 40 % gel 10 g PO Q15M PRN (Reason: hypoglycemia) Rx Instructions: until symptoms of low blood sugar are controlled mirtazapine 15 mg tablet 15 mg PO QHS aspirin [Adult Aspirin Regimen] 81 mg tablet,delayed release (DR/EC) 81 mg PO DAILY Patient Comments: HOLD UNTIL 08/20/24 atorvastatin 20 mg tablet 20 mg PO QHS metoprolol tartrate 25 mg tablet 25 mg PO BID oxycodone 5 mg tablet 5 mg PO Q6H PRN (Reason: pain) thiamine HCl (vitamin B1) 100 mg tablet 100 mg PO BID amlodipine 5 mg tablet 5 mg PO QHS levothyroxine 200 mcg tablet 200 mcg PO DAILY sennosides-docusate sodium [Senna Plus] 8.6-50 mg tablet 1 tab-cap PO DAILY PRN (Reason: constipation) Culturelle 10 billion cell capsule 1 cap PO DAILY aluminum-magnesium hydroxide 200-200 mg/5 mL suspension 30 ml PO Q4H PRN (Reason: GI DISTRESS) bisacodyl 10 mg suppository 10 mg MT DAILY PRN (Reason: constipation) glucagon HCl [Glucagon (HCl) Emergency Kit] 1 mg recon soln 1 mg IM Q20M PRN (Reason: hypoglycemia) Rx Instructions: until target blood sugar attained cholecalciferol (vitamin D3) 125 mcg (5,000 unit) capsule 125 mcg PO DAILY loperamide 2 mg Capsule 2 mg PO Q4H PRN (Reason: DIARRHEA) Qty: 0 0RF Patient Comments: START DATE-08/13/24 END DATE-08/20/24 Rx Instructions: For about 1 week as needed for diarrhea ascorbic acid (vitamin C) 500 mg Tablet 500 mg PO DAILY Qty: 0 0RF ferrous sulfate 325 mg (65 mg iron) tablet 325 mg PO QODAY Qty: 30 2RF Discontinued pantoprazole 40 mg Tablet,Delayed Release (Dr/Ec) 40 mg PO BID Qty: 0 2RF Patient Comments: START DATE- 08/13/24 END DATE- 11/12/24 Rx Instructions: For total of 3 months to heal gastric ulcer Referrals / Follow Up: Millie Massey MD [Primary Care Provider] - Disposition Disposition (needs filled in before D/C Order can be placed): NonSkilled [facility] 08/17/24921 <Electronically signed by Nikolas Magaña MD> Cosigner Signature (if applicable): CC: Dr. Angie Torres MD; Millie Massey MD ~ [facility] Work Phone: 1(758) 875-204003-22-2025 [facility]03-21-2025 Progress note Author Nikolas Magaña [facility] Note Date/Time August 16, 2024 3:3 0pm [facility] Medical Records Department [address] [place] [id number] Progress Note - Hospitalist 08/16/24 1522 MR#: [id number] Acct: [id number] Name: SCOTT OBREGON Rep #:[id number] : 1960 64 From: Nikolas Bradley PCP: Millie Massey MD Status:ADM IN Location: [place] [address]- Reason for Visit Reason for Visit: Diagnoses Chronic pulmonary edema (08/14/24) Pleural effusion, not elsewhere classified (08/14/24) End stage renal disease (08/14/24) Generalized edema (08/14/24) Objective Data Objective Data Vital Signs: Vital Signs Temp Pulse Resp BP Pulse Ox O2 Del Method O2 Flow Rate 97.8 F 64 18 164/80 H 100 Room Air 2 08/16/24 12:35 08/16/24 12:35 08/16/24 12:35 08/16/24 12:35 08/16/24 12:35 08/16/24 15:07 08/16/24 12:00 Oxygen Flow Rate (L/min) 2 Oxygen Delivery Method Room Air Weight: 109 lb 2.061 oz Body Mass Index (BMI) 14.8 Intake & Output: Intake and Output for Last 24 Hours 08/14/24 08/15/24 08/16/24 23:59 23:59 23:59 Intake Total 1305 / 1305 1680 / 2180 680 / 680 Output Total 4168 / 4168 2649 / 4948 6359 / 6359 Balance -2863 / -2863 -969 / -2768 -5679 / -5679 Lab / Micro Data 08/16/24 05:40 08/16/24 11:22 Labs: Laboratory Results - last 24 hr 08/15/24 15:45: POC Glucose 90 08/15/24 17:00: POC Glucose 92 08/15/24 23:40: POC Glucose 82 08/16/24 05:40: WBC 4.1 L, RBC 3.28 L, Hgb 9.1 L, Hct 30.5 L, MCV 93.0, MCH 27.7, MCHC 29.8 L, RDW Std Deviation 74.4 H, RDW Coeff of Monika 22.5 H, Plt Count 179, MPV 9.8, Immature Gran % (Auto) 2.200 H, Neut % (Auto) 69.9, Lymph % (Auto)12.7 L, Erath % (Auto) 10.5 H, Eos % (Auto) 3.7, Baso % (Auto) 1.0, Absolute Neuts (auto) 2.9, Absolute Lymphs (auto) 0.52 L, Nucleated RBC % 0, Platelet Estimate A, Polychromasia 1+, Anisocytosis 1+, Sodium 132 L, Potassium 5.0, Chloride 102, Carbon Dioxide 20.8 L, Anion Gap 10, BUN 33 H, Creatinine 1.27 H, Estim Creat Clear Calc 38.36 L, Est GFR (MDRD) Non-Af 48 L, BUN/Creatinine Ratio25.9 H, Glucose 89, Calcium 8.0 08/16/24 06:00: POC Glucose 80 08/16/24 08:26: POC Glucose 57 L 08/16/24 09:41: POC Glucose 24 L* 08/16/24 11:22: Glucose 109 H Micro: Microbiology 08/14/24 08:50 Blood Culture (Wb) - Anticubital Left Blood Culture - Preliminary No growth in 48 hours. 08/14/24 07:48 Blood Culture (Wb) - Anticubital Left Blood Culture - Preliminary No growth in 48 hours. 08/14/24 08:48 Urine Catheter - Gutiérrez Urine Culture - Preliminary GPC Poss Enterococcus sp GNR lactose shrimper 08/15/24 09:19 Fluid - Pleural (Lung) Gram Stain - Final 08/15/24 09:19 Fluid - Pleural (Lung) Body Fluid Culture - Preliminary No growth-Final to follow 08/14/24 07:35 Mucosa - Nose SARS-CoV-2, Influenza & RSV (PCR) - Final Physical Exam Narrative Seen and examined. Had detailed discussion with patient's POA Mrs. Monk in person in the room and Ms. ESPINOSA on the phone inclusions of director of casework department, social media content manager and patient's nurse. Patient not short of breath but feels mild abdominal cramps on tube feed Physical exam General: Alert, Oriented x3, Cooperative, BMI 16.7 kg/m? HEENT: Atraumatic, PERRLA, EOMI, Normocephalic Oral: No Gingival or Mucosal Lesions/ Ulcerations Neck: Supple, No JVD, Negative Carotid Bruits Chest wall/Lungs: Air entry diminished in bilateral lung bases. No crepitation/rhonchi Cardiovascular: Regular rate, Regular Rhythm, Normal S1, Normal S2, No M/G/R Abdomen: PEG tube. Dressing on the left upper quadrant abdominal wall ulcer, healing with granulation tissue. Bowel Sounds Present, soft, nontender : No dysuria. No renal angle tenderness. No suprapubic tenderness. Extremities: Bilateral pitting edema from thigh downward, stage II decubitus coccygeal ulcer present since last admission Musculoskeletal: No Tenderness to Palpation of Joints or Extremities, chronic severe muscle atrophy. ROM restricted Neurological: Cranial nerves II-XII grossly intact, DTR 2+/4. Muscle power 3/5at major joints Psych/Mental Status: Flat affect, amnesia/MCI Assessment & Plan Assessment/Plan (1) Pulmonary edema: (2) Anasarca: PLAN: Plan This is a 64-year-old female being admitted for shortness of breath, tachypnea and dyspnea, bilateral lower extremity edema and chest x-ray finding of small tomoderate bilateral effusion and pleural treatment 1. Pulmonary edema/anasarca due to ESRD on hemodialysis and possible heart failure: Patient is being admitted in PCU. 2D echo is ordered. Heart failure core measures including intake and output, fluid restriction less than 1500 mL, daily weight monitoring, light Naif wrap bandage, kidney and electrolytes monitoring. Lasix 40 mg IV 1 dose ordered. 08/15: Patient shortness of breath got much better after dialysis yesterday. Currently on 2 L of oxygen 08/16: Shortness of breath is better. Patient currently on room air 2. Bilateral pleural effusion, small to moderate: This was present on the previous CT chest does not seem increased. Chest ultrasound with diagnostic thoracocentesis and fluid analysis labs ordered to confirm whether enough fluid for thoracocentesis but from chest x-ray discussed with Dr. Fox Contreras and seems small pleural effusion 08/16: Pleural fluid culture shows no organisms. Blood culture negative for morethan 48 hours. Patient had 520 mL fluid aspirated on 08/15. It is transudative in nature 3. Recent PEG tube bumper ruptured with complex abdominal fluid collection in the abdominal cavity and the abnormal CT abdomen during last admission: Patient had 8 days of IV Zosyn during last admission. EGD on 08/03/2024 reviewed Impressions : - Normal esophagus. - Dislodged gastrostomy tube present characterized by ulceration. Treated with argon plasma coagulation (APC). - A non-bleeding large defect due to buried peg tube bumper was found in the stomach. Clips were placed. - No gross lesions in the duodenal bulb. Continue tube feed feeding. 4. Severe anemia that required blood transfusion during last admission from CKD/ruptured PEG tube: Her hemoglobin was 6.6 on 08/12 increased to 8.7. MCV normal. Platelet count 100 47K. Monitor hemoglobin. Anticoagulants contraindicated. She required PRBC transfusion during last admission 08/15: H&H is 7.3/24.6%. Monitor CBC. 08/16 H&H 9.1/30.5%. Platelet 179K. 5 severe protein-calorie malnutrition: Her BMI was 12.6 kg/m?. Increased to 16.7 kg/m?. Continue nutrition consult and follow-up. On tube feed Jevity 1.5,50 cc/h. 08/16: Patient having bowel cramps/abdominal cramps probably due to tube feed. Advised to hold tube feeds for now. Bentyl as needed ordered for abdominal cramps 6. Chronic Open abdominal wall wound: Chronic since February 2024. Had wound VAC at that time. Continue follow-up with the wound care. Healing good. End stage renal disease: Secondary to ATN from hemorrhagic shock and never had recovery. Patient on dialysis every Monday. Pst Specialist consulted 08/15: She feels much better after dialysis. 08/16: GPC possible Enterococcus 11,000?25. Growing GNR lactose shrimper 1000- 10,000 mixed organisms suggestive of contamination and below pathology range. No antibiotic indicated. UTI ruled out. 7. Factor V Leiden deficiency hold off on her aspirin for now. 8. Hypertension: BP usually normal 131-136 and drops 95/70 mmHg during hemodialysis on Lasix. Hold antihypertensive medication. 9. Hypothyroidism: Continue levothyroxine 10. History of C. difficile: During previous admission, C. difficile antigen was positive but toxin is negative. Does not have active symptoms abdominal pain or cramps or diarrhea. No treatment indicated 11. Depression: Continue sertraline. 12. 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 Present since last admission VTE prophylaxis with SCDs for now Living will/advanced directive/end of life care: Patient does not have living will or advanced directive but has legal power of bankruptcy attorney for health.. After discussion of benefits/risks procedures involved with full code, DNR CC arrest and DNR CC, the patient opted for DNR CC arrest with no intubation. I explainedthe risk and benefit of CPR or intubation, DC shock, central line. Patient doesn't want artificial life support including intubation, ventilator and/chest compression but want central venous catheter, vasopressor and DC shock if needed Microbiology Past 72 Hours 08/15/24 09:19 Fluid - Pleural (Lung) Gram Stain - Final 08/14/24 08:48 Urine Catheter - Gutiérrez Urine Culture - Preliminary GPC Poss Enterococcus sp GNR lactose shrimper 08/14/24 07:35 Mucosa - Nose SARS-CoV-2, Influenza & RSV (PCR) - Final Laboratory Results 08/14/24 19:01: POC Glucose 137 H 08/15/24 04:47: WBC 4.1 L, RBC 2.71 L, Hgb 7.6 L, Hct 24.6 L, MCV 90.8, MCH 28.0, MCHC 30.9 L, RDW Std Deviation 69.5 H, RDW Coeff of Monika 21.3 H, Plt Count 159, MPV 10.8, Immature Gran % (Auto) 2.400 H, Neut % (Auto) 76.6 H, Lymph % (Auto) 10.9 L, Erath % (Auto) 7.0, Eos % (Auto) 2.4, Baso % (Auto) 0.7, Absolute Neuts (auto) 3.2, Absolute Lymphs (auto) 0.45 L, Nucleated RBC % 0, Anisocytosis1+, [place] [address] H, Triglycerides 71, Cholesterol 62, LDL Cholesterol, Calc 23, VLDL Cholesterol 14, HDL Cholesterol 25 L, Cholesterol/HDL Ratio 2.48, TSH 10.600 H 08/15/24 05:51: POC Glucose 104 08/15/24 09:02: Fluid pH Pending, Fluid Glucose 111, Fluid Total Protein 1.9, Fluid LDH 51, Fluid Amylase Pending 08/15/24 09:20: Fluid Source THORACENTESIS, Fluid Color LT YEL, Fluid AppearanceCLEAR, Fluid WBC 0.023, Fluid RBC 6, Fluid Tot Cell Count 0.024 H, Fld Polynuclear WBCs # 0.002, Fld Polynuclear WBCs % 8.7, Fluid Mononuclear WBCs 0.021, Fld Mononuclear WBCs % 91.3, Fluid Neutrophils 4, Fluid Lymphocytes 32, Fluid Monocytes 60, Fld Mesothelial Cells 4, Fl Pathologist Comment May follow, Fluid Comment 2 SEE COMMENT 08/15/24 09:25: Miscellaneous Cytology Pending 08/15/24 10:01: POC Glucose 70 L 08/15/24 15:45: POC Glucose 90 Charges/Coding Addendum Addendum: After detailed discussion family with both sisters Sriram and Laisha along with director of casework department and social media content manager and patient's nurse for more than 20 minutes it was agreed that patient is DNR CCA with intubation. It was explained clearly there is high chance of recurrent admission and they agreed that they will come monitor for it takes and they are ready to take on the ride. Total time of the visit including total time spent in counseling or coordinationof care, (more than 50% of the total time, spent in obtaining medical information from nurses and other ancillary care providers ,explaining to the patient about labs, imaging, diagnosis and management of active complex medical conditions), discussion with the head tennis coach, review of labs and imaging is 45minutes. Visit Charges Inpatient E&M: 90956 Subs Hosp L3 08/16/24 1530 <Electronically signed by Nikolas Magaña MD> Cosigner Signature (if applicable): CC: ~ Signed [facility] Work Phone: [phone] 264-384203-20-2025 Consult note Author Meghan Alfaro [facility] Note Date/Time August 15, 2024 9:3 5pm [facility] Medical Records Department [address] [place] [address] Consultation - Nephrology 08/15/24 1138 MR#: [id number] Acct: [id number] Name: SCOTT OBREGON Rep #:[id number] : 1960 64 From: Meghan MOORE PCP: Millie Massey MD Status:ADM IN Location: [place] [id number] Documented by User: OSCAR Hayward 08/15/24 11:53 Assessment & Plan Assessment/Plan (1) End stage renal disease: (2) Pleural effusion: PLAN: Plan ESRD on hemodialysis MWF. Patient underwent HD yesterday and only able to tolerate ~1.7L fluid removal, we were trying to attempt more fluid removal but limited due to low bps. Even with midodrine bps did not improve much. Patient is off antihypertensives. Patient had thoracentesis this morning with ~500ml fluid removed. I contacted patient's POA Sriram ([phone]), who also had other sister Geeta (from [place]) in on phone conversation and I updated them regarding how patient has recently been doing with dialysis in hospital and at kidney center. I reviewed with both sisters patient has been having difficult time tolerating dialysis with noted lower bps, unable to tolerate fluid removal with dialysis and discussed with them risk of lower bps, unable to tolerate dialysis in hospital and outpatient setting. Both sisters stated they want to continue patient's wishes but do not want chest compressions should her heart stop. They also had questions regarding different types of dialysis modalities,at home dialysis and I reviewed with them risk for surgery for PD catheter, riskfor dialysis at home, risk of daily dialysis etc. Questions were answered. Will plan for dialysis tomorrow and attempt fluid removal as patient/blood pressure tolerates. Orders placed. Further orders forthcoming as hospitalization evolves. Assess plan reviewed with Dr. Torres. HPI Consult Data Date of Consult: 08/15/24 HPI Narrative HPI Narrative: SCOTT OBREGON, is a 64 F with past medical history significant for ESRD who currently dialyzes Monday schedule at [facility] [place] via tunneled hemodialysis catheter who presented back to the emergency room yesterday from [facility] with complaints of worsening shortness of breath. Chestx-ray in the emergency room showing pulmonary edema, bilateral pleural effusions. Patient had dialysis yesterday, only able to tolerate about 1.7L fluid removal. Had thoracentesis with around 500ml fluid removed. Patient alert,drowsy, no complaints today. 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) Open abdominal wall wound Factor 5 Leiden mutation, heterozygous Failure to thrive snf (current) use of anticoagulants Gross hematuria Retroperitoneal hematoma Constipation, unspecified Raynaud's syndrome without gangrene Hypo-osmolality and hyponatremia Hyperlipidemia, unspecified Hypothyroidism, unspecified Anemia, unspecified Need for assistance with personal care Other malaise Other abnormalities of gait and mobility Unsteadiness on feet Muscle weakness (generalized) Other symbolic dysfunctions Dysphagia, oropharyngeal phase Essential (primary) hypertension Activated protein C resistance Unspecified severe protein-calorie malnutrition Acute respiratory failure with hypoxia Emphysema, unspecified Peripheral vascular disease, unspecified Enterocolitis due to Clostridium difficile, not specified as recurrent Acute kidney failure, unspecified Leakage of aortic (bifurcation) graft (replacement), subsequent encounter Abdominal aortic aneurysm, ruptured, unspecified Home Medications ?Medication ?Instructions ?Recorded ?Last Taken ?Type aspirin 81 mg tablet,delayed 81 mg PO DAILY 03/11/24 0 07/23/24 History release (Adult Aspirin Regimen) Held on 08/14/24. Instructions: Ordered atorvastatin 20 mg tablet 20 mg PO QHS 10/14/24 02/24/ 25 History metoprolol tartrate 25 mg tablet 25 mg PO BID 03/11/24 07/22/24 History thiamine HCl (vitamin B1) 100 mg 100 mg PO BID 4 07/23/24 History tablet cyclobenzaprine 5 mg tablet 5 mg PO Q8H PRN MUSCLE SPA SMS 06/05/24 07/10/24 History Lactobacillus rhamnosus GG 10 1 cap PO DAILY 07/18/24 07/23/24 History billion cell capsule (Culturelle) acetaminophen 325 mg tablet 650 mg PO Q4H PRN fever Unknown History aluminum-magnesium hydroxide 200 30 ml PO Q4H PRN GI D ISTRESS 07/18/24 Unknown History mg-200 mg/5 mL oral suspension amlodipine 5 mg tablet 5 mg PO QHS 07/18/24 5 History docusate sodium 100 mg tablet 100 mg PO BID PRN consti pation 07/18/24 Unknown History dronabinol 2.5 mg capsule (Marinol) 2.5 mg PO BID 06/3007/23/24 History guaifenesin 100 mg/5 mL oral liquid 200 mg PO Q4H PRN cough 07/18/24 07/14/24 History levothyroxine 200 mcg tablet 200 mcg PO DAILY 07/18/24 07/23/24 History midodrine 10 mg tablet 10 mg PO DAILY PRN for SBP l ower 07/18/24 Unknown History than 110 during dialysis tx ondansetron 4 mg disintegrating 4 mg PO DAILY PRN naus ea and 07/18/24 Unknown History tablet vomiting oxycodone 5 mg tablet 5 mg PO Q6H PRN pain 5 07/22/24 History polyethylene glycol 3350 17 17 g PO QODAY 07/18/24 History gram/dose oral powder sennosides 8.6 mg-docusate sodium 1 tab-cap PO DAILY P RN constipation 07/18/24 Unknown History 50 mg tablet (Senna Plus) sertraline 25 mg tablet 25 mg PO DAILY 07/18/2406/30 History vitamin B complex-vitamin C-folic 1 tab PO DAILY 07/1807/23/24 History acid 0.8 mg tablet (Renal Vitamin) bisacodyl 10 mg rectal suppository 10 mg MT DAILY PRN constipation 07/31/24 Unknown History cholecalciferol (vitamin D3) 125 125 mcg PO DAILY 10/20 Unknown History mcg (5,000 unit) capsule glucagon HCl 1 mg solution for 1 mg IM Q20M PRN hypogl ycemia 07/31/24 Unknown History injection (Glucagon (HCl) Emergency Kit) ascorbic acid (vitamin C) 500 mg 500 mg PO DAILY #0 ta bs 08/13/24 Unknown Rx tablet ferrous sulfate 325 mg (65 mg 325 mg PO QODAY #30 tabs 08/13/24 Unknown Rx iron) tablet loperamide 2 mg capsule 2 mg PO Q4H PRN DIARRHEA #0 caps 08/13/24 Unknown Rx pantoprazole 40 mg tablet,delayed 40 mg PO BID #0 tabs 08/13/24 Unknown Rx release acetaminophen 650 mg rectal 650 mg MT Q4H PRN fever or pain 08/14/24 Unknown History suppository dextrose 40 % oral gel (Glucose 10 g PO Q15M PRN hypog lycemia 08/14/24 Unknown History Gel) mirtazapine 15 mg tablet 15 mg PO QHS 08/14/24 Unknow n History sodium phosphates 19 gram-7 118 ml MT DAILY PRN consti pation 08/14/24 Unknown History gram/118 mL enema (Enema) Allergy/AdvReac Type Severity Reaction Status Date / Time iodine Allergy Intermediate Nausea Verified 08/14/24 07:32 shellfish derived Allergy Intermediate Nausea Verified 08/14/24 07:32 Social History Smoking Status: Former smoker Tobacco: How many years used: 40 alcohol intake: former substance use type: does not use ROS ROS Narrative as in HPI Physical Exam Narrative alert, oriented, no apparent distress S1 S2 RRR diminished breath sounds abdomen soft + edema feet and lower legs tunneled HD catheter dressing C/D/I Lab / Micro Data 08/15/24 04:47 08/14/24 16:06 Labs: Laboratory Results - last 24 hr 08/14/24 07:48: Phosphorus 3.0, Magnesium 1.4 L, Lactate Dehydrogenase 239, Total Protein 5.4 L 08/14/24 16:06: Glucose 79 08/14/24 19:01: POC Glucose 137 H 08/15/24 04:47: WBC 4.1 L, RBC 2.71 L, Hgb 7.6 L, Hct 24.6 L, MCV 90.8, MCH 28.0, MCHC 30.9 L, RDW Std Deviation 69.5 H, RDW Coeff of Monika 21.3 H, Plt Count 159, MPV 10.8, Immature Gran % (Auto) 2.400 H, Neut % (Auto) 76.6 H, Lymph % (Auto) 10.9 L, Erath % (Auto) 7.0, Eos % (Auto) 2.4, Baso % (Auto) 0.7, Absolute Neuts (auto) 3.2, Absolute Lymphs (auto) 0.45 L, Nucleated RBC % 0, Anisocytosis1+, [place] [address] H, Triglycerides 71, Cholesterol 62, LDL Cholesterol, Calc 23, VLDL Cholesterol 14, HDL Cholesterol 25 L, Cholesterol/HDL Ratio 2.48, TSH 10.600 H 08/15/24 05:51: POC Glucose 104 08/15/24 09:20: Fluid Source THORACENTESIS, Fluid Color LT YEL, Fluid AppearanceCLEAR, Fluid WBC 0.023, Fluid RBC 6, Fluid Tot Cell Count 0.024 H, Fld Polynuclear WBCs # 0.002, Fld Polynuclear WBCs % 8.7, Fluid Mononuclear WBCs 0.021, Fld Mononuclear WBCs % 91.3, Fl Pathologist Comment May follow, Fluid Comment 2 SEE COMMENT 08/15/24 10:01: POC Glucose 70 L Micro: Microbiology 08/14/24 07:35 Mucosa - Nose SARS-CoV-2, Influenza & RSV (PCR) - Final Imaging Radiology Impression Chest X-Ray 08/15/24 09:10 IMPRESSION: Status post left thoracentesis. No evidence of pneumothorax. Reading Location: [facility] Documented by User: Dr. Angie Torres MD 08/15/24 21:35 Assessment & Plan Assessment/Plan (1) End stage renal disease: (2) Pleural effusion: PLAN: Plan ESRD on hemodialysis MWF. Patient underwent HD yesterday and only able to tolerate ~1.7L fluid removal, we were trying to attempt more fluid removal but limited due to low bps. Even with midodrine bps did not improve much. Patient is off antihypertensives. Patient had thoracentesis this morning with ~500ml fluid removed. I contacted patient's POA Sriram ([phone]), who also had other sister Geeta (from [place]) in on phone conversation and I updated them regarding how patient has recently been doing with dialysis in hospital and at kidney center. I reviewed with both sisters patient has been having difficult time tolerating dialysis with noted lower bps, unable to tolerate fluid removal with dialysis and discussed with them risk of lower bps, unable to tolerate dialysis in hospital and outpatient setting. Both sisters stated they want to continue patient's wishes but do not want chest compressions should her heart stop. They also had questions regarding different types of dialysis modalities,at home dialysis and I reviewed with them risk for surgery for PD catheter, riskfor dialysis at home, risk of daily dialysis etc. Questions were answered. Will plan for dialysis tomorrow and attempt fluid removal as patient/blood pressure tolerates. Orders placed. Further orders forthcoming as hospitalization evolves. Assess plan reviewed with Dr. Torres. Addendum agree with above. 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 Gross hematuria Retroperitoneal hematoma Constipation, unspecified Raynaud's syndrome without gangrene Hypo-osmolality and hyponatremia Hyperlipidemia, unspecified Hypothyroidism, unspecified Anemia, unspecified Need for assistance with personal care Other malaise Other abnormalities of gait and mobility Unsteadiness on feet Muscle weakness (generalized) Other symbolic dysfunctions Dysphagia, oropharyngeal phase Essential (primary) hypertension Activated protein C resistance Unspecified severe protein-calorie malnutrition Acute respiratory failure with hypoxia Emphysema, unspecified Peripheral vascular disease, unspecified Enterocolitis due to Clostridium difficile, not specified as recurrent Acute kidney failure, unspecified Leakage of aortic (bifurcation) graft (replacement), subsequent encounter Abdominal aortic aneurysm, ruptured, unspecified Home Medications ?Medication ?Instructions ?Recorded ?Last Taken ?Type aspirin 81 mg tablet,delayed 81 mg PO DAILY 03/11/24 0 07/23/24 History release (Adult Aspirin Regimen) Held on 08/14/24. Instructions: MD Ordered atorvastatin 20 mg tablet 20 mg PO QHS 03/11/24 History metoprolol tartrate 25 mg tablet 25 mg PO BID 03/11/24 07/22/24 History thiamine HCl (vitamin B1) 100 mg 100 mg PO BID 4 07/23/24 History tablet cyclobenzaprine 5 mg tablet 5 mg PO Q8H PRN MUSCLE SPA SMS 06/05/24 07/10/24 History Lactobacillus rhamnosus GG 10 1 cap PO DAILY 07/18/24 07/23/24 History billion cell capsule (Culturelle) acetaminophen 325 mg tablet 650 mg PO Q4H PRN fever Unknown History aluminum-magnesium hydroxide 200 30 ml PO Q4H PRN GI D ISTRESS 07/18/24 Unknown History mg-200 mg/5 mL oral suspension amlodipine 5 mg tablet 5 mg PO QHS 07/18/24 5 History docusate sodium 100 mg tablet 100 mg PO BID PRN consti pation 07/18/24 Unknown History dronabinol 2.5 mg capsule (Marinol) 2.5 mg PO BID 06/3007/23/24 History guaifenesin 100 mg/5 mL oral liquid 200 mg PO Q4H PRN cough 07/18/24 07/14/24 History levothyroxine 200 mcg tablet 200 mcg PO DAILY 07/18/24 07/23/24 History midodrine 10 mg tablet 10 mg PO DAILY PRN for SBP l ower 07/18/24 Unknown History than 110 during dialysis tx ondansetron 4 mg disintegrating 4 mg PO DAILY PRN naus ea and 07/18/24 Unknown History tablet vomiting oxycodone 5 mg tablet 5 mg PO Q6H PRN pain 5 07/22/24 History polyethylene glycol 3350 17 17 g PO QODAY 07/18/24 History gram/dose oral powder sennosides 8.6 mg-docusate sodium 1 tab-cap PO DAILY P RN constipation 07/18/24 Unknown History 50 mg tablet (Senna Plus) sertraline 25 mg tablet 25 mg PO DAILY 07/18/2406/30 History vitamin B complex-vitamin C-folic 1 tab PO DAILY 07/1807/23/24 History acid 0.8 mg tablet (Renal Vitamin) bisacodyl 10 mg rectal suppository 10 mg MT DAILY PRN constipation 07/31/24 Unknown History cholecalciferol (vitamin D3) 125 125 mcg PO DAILY 10/20 Unknown History mcg (5,000 unit) capsule glucagon HCl 1 mg solution for 1 mg IM Q20M PRN hypogl ycemia 07/31/24 Unknown History injection (Glucagon (HCl) Emergency Kit) ascorbic acid (vitamin C) 500 mg 500 mg PO DAILY #0 ta bs 08/13/24 Unknown Rx tablet ferrous sulfate 325 mg (65 mg 325 mg PO QODAY #30 tabs 08/13/24 Unknown Rx iron) tablet loperamide 2 mg capsule 2 mg PO Q4H PRN DIARRHEA #0 caps 08/13/24 Unknown Rx pantoprazole 40 mg tablet,delayed 40 mg PO BID #0 tabs 08/13/24 Unknown Rx release acetaminophen 650 mg rectal 650 mg MT Q4H PRN fever or pain 08/14/24 Unknown History suppository dextrose 40 % oral gel (Glucose 10 g PO Q15M PRN hypog lycemia 08/14/24 Unknown History Gel) mirtazapine 15 mg tablet 15 mg PO QHS 08/14/24 Unknow n History sodium phosphates 19 gram-7 118 ml MT DAILY PRN consti pation 08/14/24 Unknown History gram/118 mL enema (Enema) Allergy/AdvReac Type Severity Reaction Status Date / Time iodine Allergy Intermediate Nausea Verified 08/14/24 07:32 shellfish derived Allergy Intermediate Nausea Verified 08/14/24 07:32 Social History Smoking Status: Former smoker Tobacco: How many years used: 40 alcohol intake: former substance use type: does not use Lab / Micro Data 08/15/24 04:47 08/14/24 16:06 08/15/24 1153 <Electronically signed by Meghan MOORE> Cosigner Signature (if applicable): 08/15/242134 <Electronically signed by Angie Torres MD> CC: Millie Massey MD~ Signed [facility] Work Phone: 1(374) 156-338203-20-2025 Progress note Author Nikolas Magaña [facility] Note Date/Time August 15, 2024 5:2 2pm [facility] Medical Records Department [address] [place] [address] Progress Note - Hospitalist 08/15/24 0811 MR#: [id number] Acct: [id number] Name: SCOTT OBREGON Rep #:[id number] : 1960 64 From: Nikolas Bradley PCP: Millie Massey MD Status:ADM IN Location: [place] [address] Reason for Visit Reason for Visit: Diagnoses Chronic pulmonary edema (08/14/24) Generalized edema (08/14/24) Objective Data Objective Data Vital Signs: Vital Signs Temp Pulse Resp BP Pulse Ox O2 Del Method O2 Flow Rate 97 F L 87 16 119/64 100 Nasal Cannula 2 08/15/24 02:07 08/15/24 02:07 08/15/24 02:07 08/15/24 02:07 08/15/24 02:07 08/15/24 02:07 08/15/24 02:07 Oxygen Flow Rate (L/min) 2 Oxygen Delivery Method Nasal Cannula Weight: 117 lb 15.157 oz Body Mass Index (BMI) 16.0 Intake & Output: Intake and Output for Last 24 Hours 08/13/24 08/14/24 08/15/24 23:59 23:59 23:59 Intake Total 1305 / 1305 500 / 500 Output Total 4168 / 4168 1759 / 1759 Balance -2863 / -2863 -1259 / -1259 Lab / Micro Data 08/15/24 04:47 08/14/24 16:06 Labs: Laboratory Results - last 24 hr 08/14/24 07:48: WBC 9.0, RBC 3.09 L, Hgb 8.7 L, Hct 29.0 L, MCV 93.9, MCH 28.2, MCHC 30.0 L, RDW Std Deviation 70.0 H, RDW Coeff of Monika 21.0 H, Plt Count 147 L,MPV 10.2, Immature Gran % (Auto) 3.300 H, Neut % (Auto) 79.5 H, Lymph % (Auto) 8.6 L, Erath % (Auto) 6.1, Eos % (Auto) 1.9, Baso % (Auto) 0.6, Absolute Neuts (auto) 7.1, Absolute Lymphs (auto) 0.77 L, Nucleated RBC % 0, Polychromasia RARE, Anisocytosis RARE, PT 14.6, INR 1.1, APTT 33.6, Sodium 131 L, Potassium 5.4 H, Chloride 104, Carbon Dioxide 19.2 L, Anion Gap 9, BUN 39 H, Creatinine 1.34 H, Estim Creat Clear Calc 38.48 L, Est GFR (MDRD) Non-Af 45 L, BUN/Creatinine Ratio 29.1 H, Glucose 85, Lactic Acid 3.1 H*, Calcium 7.8, Phosphorus 3.0, Magnesium 1.4 L, Total Bilirubin 0.18, AST 29, ALT 9, Alkaline Phosphatase 71, Lactate Dehydrogenase 239, Troponin T High Sens 224 H* D, Total Protein 5.5 L 08/14/24 07:48: Total Protein 5.4 L, Albumin 2.0 L, Globulin 3.4, Albumin/Globulin Ratio 0.6 L 08/14/24 08:48: Urine Color Yellow, Urine Clarity Sl. Cloudy, Urine pH 8.0, Ur Specific Gladys 1.010, Urine Protein 30 H, Urine Glucose (UA) Normal, Urine Ketones Negative, Urine Occult Blood 25 H, Urine Nitrite Negative, Urine Bilirubin Negative, Urine Urobilinogen Normal, Ur Leukocyte Esterase 500 H, Urine RBC 0-5 SEEN, Urine WBC 25-50 SEEN, Ur Squamous Epith Cells 0-5 SEEN, Calcium Oxalate Crystal 1+, Urine Bacteria 0 SEEN, Urine Mucus 0 SEEN 08/14/24 10:10: Troponin T Hi Sens 2 Hr 221 H* 08/14/24 16:06: Glucose 79 08/14/24 19:01: POC Glucose 137 H 08/15/24 04:47: WBC 4.1 L, RBC 2.71 L, Hgb 7.6 L, Hct 24.6 L, MCV 90.8, MCH 28.0, MCHC 30.9 L, RDW Std Deviation 69.5 H, RDW Coeff of Monika 21.3 H, Plt Count 159, MPV 10.8, Immature Gran % (Auto) 2.400 H, Neut % (Auto) 76.6 H, Lymph % (Auto) 10.9 L, Erath % (Auto) 7.0, Eos % (Auto) 2.4, Baso % (Auto) 0.7, Absolute Neuts (auto) 3.2, Absolute Lymphs (auto) 0.45 L, Nucleated RBC % 0, [place]isocytosis1+, [place] [address] H, Triglycerides 71, Cholesterol 62, LDL Cholesterol, Calc 23, VLDL Cholesterol 14, HDL Cholesterol 25 L, Cholesterol/HDL Ratio 2.48, TSH 10.600 H 08/15/24 05:51: POC Glucose 104 Micro: Microbiology 08/14/24 07:35 Mucosa - Nose SARS-CoV-2, Influenza & RSV (PCR) - Final ABG Data ABG results: ABG 08/14/24 08:32 Specimen Type ART Sample Site R Radial pH 7.36 Bicarbonate Actual 22.0 Total CO2 23 Base Excess -3 L O2 Saturation 98 O2 % 44.0 ABG pCO2 39.1 ABG pO2 105 H Linda Test Positive O2 Delivery Device Cannula Vent Mode Not entered Radiography Diagnostic Testing: Radiology Impression Chest X-Ray 08/14/24 08:33 IMPRESSION: 1. Pulmonary congestion and edema. Pneumonia cannot be excluded. 2. Bilateral pleural effusions. Reading Location: [facility] Physical Exam Narrative Physical exam General: Alert, Oriented x3, Cooperative, BMI 16.7 kg/m? HEENT: Atraumatic, PERRLA, EOMI, Normocephalic Oral: No Gingival or Mucosal Lesions/ Ulcerations Neck: Supple, No JVD, Negative Carotid Bruits Chest wall/Lungs: Air entry diminished in bilateral lung bases. No crepitation/rhonchi Cardiovascular: Regular rate, Regular Rhythm, Normal S1, Normal S2, No M/G/R Abdomen: PEG tube. Dressing on the left upper quadrant abdominal wall ulcer, healing with granulation tissue. Bowel Sounds Present, soft, nontender : No dysuria. No renal angle tenderness. No suprapubic tenderness. Extremities: Bilateral pitting edema from thigh downward, stage II decubitus coccygeal ulcer present on admission since last admission Musculoskeletal: No Tenderness to Palpation of Joints or Extremities, chronic severe muscle atrophy. ROM restricted Neurological: Cranial nerves II-XII grossly intact, DTR 2+/4. Muscle power 4/5at major joints Psych/Mental Status: Flat affect, amnesia/MCI Assessment & Plan Assessment/Plan (1) Pulmonary edema: (2) Anasarca: PLAN: Plan This is a 64-year-old female being admitted for shortness of breath, tachypnea and dyspnea, bilateral lower extremity edema and chest x-ray finding of small tomoderate bilateral effusion and pleural treatment 1. Pulmonary edema/anasarca due to ESRD on hemodialysis and possible heart failure: Patient is being admitted in PCU. 2D echo is ordered. Heart failure core measures including intake and output, fluid restriction less than 1500 mL, daily weight monitoring, light Naif wrap bandage, kidney and electrolytes monitoring. Lasix 40 mg IV 1 dose ordered. 08/15: Patient shortness of breath got much better after dialysis yesterday. Currently on 2 L of oxygen 2. Bilateral pleural effusion, small to moderate: This was present on the previous CT chest does not seem increased. Chest ultrasound with diagnostic thoracocentesis and fluid analysis labs ordered to confirm whether enough fluid for thoracocentesis but from chest x-ray discussed with Dr. Fox Contreras and seems small pleural effusion 3. Recent PEG tube bumper ruptured with complex abdominal fluid collection in the abdominal cavity and the abnormal CT abdomen during last admission: Patient had 8 days of IV Zosyn during last admission. EGD on 08/03/2024 reviewed Impressions : - Normal esophagus. - Dislodged gastrostomy tube present characterized by ulceration. Treated with argon plasma coagulation (APC). - A non-bleeding large defect due to buried peg tube bumper was found in the stomach. Clips were placed. - No gross lesions in the duodenal bulb. Continue tube feed feeding. 4. Severe anemia that required blood transfusion during last admission from CKD/ruptured PEG tube: Her hemoglobin was 6.6 on 08/12 increased to 8.7. MCV normal. Platelet count 100 47K. Monitor hemoglobin. Anticoagulants contraindicated. She required PRBC transfusion during last admission 08/15: H&H is 7.3/24.6%. Monitor CBC. 5 severe protein-calorie malnutrition: Her BMI was 12.6 kg/m?. Increased to 16.7 kg/m?. Continue nutrition consult and follow-up. On tube feed Jevity 1.5,50 cc/h. 6. Chronic Open abdominal wall wound: Chronic since February 2024. Had wound VAC at that time. Continue follow-up with the wound care. Healing good. End stage renal disease: Secondary to ATN from hemorrhagic shock and never had recovery. Patient on dialysis every Monday. Pst Specialist consulted 08/15: She feels much better after dialysis. 7. Factor V Leiden deficiency hold off on her aspirin for now. 8. Hypertension: BP usually normal 131-136 and drops 95/70 mmHg during hemodialysis on Lasix. Hold antihypertensive medication. 9. Hypothyroidism: Continue levothyroxine 10. History of C. difficile: During previous admission, C. difficile antigen was positive but toxin is negative. Does not have active symptoms abdominal pain or cramps or diarrhea. No treatment indicated 11. Depression: Continue sertraline. 12. 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 Present since last admission VTE prophylaxis with SCDs for now Living will/advanced directive/end of life care: Patient does not have living will or advanced directive but has legal power of bankruptcy attorney for health.. After discussion of benefits/risks procedures involved with full code, DNR CC arrest and DNR CC, the patient opted for DNR CC arrest with no intubation. I explainedthe risk and benefit of CPR or intubation, DC shock, central line. Patient doesn't want artificial life support including intubation, ventilator and/chest compression but want central venous catheter, vasopressor and DC shock if needed Microbiology Past 72 Hours 08/15/24 09:19 Fluid - Pleural (Lung) Gram Stain - Final 08/14/24 08:48 Urine Catheter - Gutiérrez Urine Culture - Preliminary GPC Poss Enterococcus sp GNR lactose shrimper 08/14/24 07:35 Mucosa - Nose SARS-CoV-2, Influenza & RSV (PCR) - Final Laboratory Results 08/14/24 19:01: POC Glucose 137 H 08/15/24 04:47: WBC 4.1 L, RBC 2.71 L, Hgb 7.6 L, Hct 24.6 L, MCV 90.8, MCH 28.0, MCHC 30.9 L, RDW Std Deviation 69.5 H, RDW Coeff of Monika 21.3 H, Plt Count 159, MPV 10.8, Immature Gran % (Auto) 2.400 H, Neut % (Auto) 76.6 H, Lymph % (Auto) 10.9 L, Erath % (Auto) 7.0, Eos % (Auto) 2.4, Baso % (Auto) 0.7, Absolute Neuts (auto) 3.2, Absolute Lymphs (auto) 0.45 L, Nucleated RBC % 0, Anisocytosis1+, [place] [address] H, Triglycerides 71, Cholesterol 62, LDL Cholesterol, Calc 23, VLDL Cholesterol 14, HDL Cholesterol 25 L, Cholesterol/HDL Ratio 2.48, TSH 10.600 H 08/15/24 05:51: POC Glucose 104 08/15/24 09:02: Fluid pH Pending, Fluid Glucose 111, Fluid Total Protein 1.9, Fluid LDH 51, Fluid Amylase Pending 08/15/24 09:20: Fluid Source THORACENTESIS, Fluid Color LT YEL, Fluid AppearanceCLEAR, Fluid WBC 0.023, Fluid RBC 6, Fluid Tot Cell Count 0.024 H, Fld Polynuclear WBCs # 0.002, Fld Polynuclear WBCs % 8.7, Fluid Mononuclear WBCs 0.021, Fld Mononuclear WBCs % 91.3, Fluid Neutrophils 4, Fluid Lymphocytes 32, Fluid Monocytes 60, Fld Mesothelial Cells 4, Fl Pathologist Comment May follow, Fluid Comment 2 SEE COMMENT 08/15/24 09:25: Miscellaneous Cytology Pending 08/15/24 10:01: POC Glucose 70 L 08/15/24 15:45: POC Glucose 90 Charges/Coding Visit Charges Inpatient E&M: 29693 Subs Hosp L2 08/15/24 1710 <Electronically signed by Nikolas Magaña MD> Cosigner Signature (if applicable): CC: ~ Signed ADDENDUM by Dr. Nikolas Magaña MD on 08/15/24 at 1722 Addendum I had detailed discussion with patient's sister, WILMAR, Mrs. Sriram Alvares. They are not agreeable for hospice care but wanted discussion for palliative care tomorrow at 2 PM. They do not want CPR. 08/15/24 1722<Electronically signed by Nikolas Magaña MD> Cosigner Signature (if applicable): cc: ~* Signed [facility] Work Phone: 1(136) 263-312803-20-2025 History of Present illness Narrative* Jennifer Hernandez MA - 08/15/2024 4:19 PM EDT LMTRC * Casi Topete RN - 08/15/2024 4:04 PM EDT Attempted to call patient regarding Transition of Care following hospitalization d/c on 08/13/24 second attempt at contacting patient. Unsuccessful attempt, left message to return my call on answering machine Left message with RNCM name and phone number requesting call back in order to coordinate transition of care. documented in this [id number] Procedure [facility]03-20-2025 Procedure [facility]03-20-2025 Radiology Diagnostic study [facility]03-19-2025 Discharge summary Author Ciaran Rodrigez [facility] Note Date/Time August 14, 2024 5:1 2pm [facility] Medical Records Department [address] [place] [address] Emergency Department Summary 08/14/24 MR#: [id number] Acct: [id number] Name: SCOTT OBREGON Rep #:[id number] : 1960 64 From: Ciaran schneiderett PCP: Millie Massey MD Status:ADM IN Location: [address] History of Present Illness Chief Complaint: Shortness of Breath Narrative Narrative: Chief complaint and HPI: Shortness of breath. 64-year-old female with history of ESRD on HD Monday, Monday, Monday, failure to thrive with PEG tube, AAA, factor V Leiden, HLD presents for evaluation of shortness of breath. Patient resides at [facility]. Per their report patient became short of breath this morning. They also noticed increased bilateral lower extremity peripheral edema. Patient is supposed to receive dialysis today. Patient endorses shortness of breath. She states she feels warm but does not know if she has had fevers. She denies any headache, URI symptoms, cough, abdominal pain, nausea, vomiting, dysuria. States she has some chest tightness but denies true chest pain. Patient's paperwork from care facility states that she is a DNR/DNI however patient is endorsing that she would like to be full code. Review of systems: See HPI Medications: As listed on the chart Allergies: As listed on the chart PFSH: Per chart Vital signs: As listed on the chart. Reviewed. Physical exam: Gen: A&O x3 Head: Normocephalic, atraumatic Eyes: No sclera icterus, conjunctiva clear, PERRL, EOMI ENT: Dry mucous membranes Neck: Trachea midline, No JVD CV: Tachycardic, regular rhythm, no murmurs, right sided HD catheter, +1 bilateral lower extremity peripheral edema she has +2 pitting edema in the bilateral feet Resp: Lungs diminished bilaterally, coarse GI: Cachectic, abd soft, non-distended but edematous in the lower portion of theabdomen, non-tender, no r/r/g, + PEG tube : Normal external genitalia but edematous Musc: Moves all extremities, no deformity Skin: Warm, dry Neuro: Alert, oriented, grossly intact, sensation intact Psych: Cooperative, appropriate mood and affect [facility] Medical History (Updated 08/14/24 @ 12:[address] 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 to thrive snf (current) use of anticoagulants Gross hematuria Retroperitoneal hematoma Constipation, unspecified Raynaud's syndrome without gangrene Hypo-osmolality and hyponatremia Hyperlipidemia, unspecified Hypothyroidism, unspecified Anemia, unspecified Need for assistance with personal care Other malaise Other abnormalities of gait and mobility Unsteadiness on feet Muscle weakness (generalized) Other symbolic dysfunctions Dysphagia, oropharyngeal phase Essential (primary) hypertension Activated protein C resistance Unspecified severe protein-calorie malnutrition Acute respiratory failure with hypoxia Emphysema, unspecified Peripheral vascular disease, unspecified Enterocolitis due to Clostridium difficile, not specified as recurrent Acute kidney failure, unspecified Leakage of aortic (bifurcation) graft (replacement), subsequent encounter Abdominal aortic aneurysm, ruptured, unspecified Home Medications ?Medication ?Instructions ?Recorded ?Last Taken ?Type aspirin 81 mg tablet,delayed 81 mg PO DAILY 03/11/24 0 07/23/24 History release (Adult Aspirin Regimen) Held on 08/14/24. Instructions: Ordered atorvastatin 20 mg tablet 20 mg PO QHS 03/11/24 History metoprolol tartrate 25 mg tablet 25 mg PO BID 03/11/24 07/22/24 History thiamine HCl (vitamin B1) 100 mg 100 mg PO BID 4 07/23/24 History tablet cyclobenzaprine 5 mg tablet 5 mg PO Q8H PRN MUSCLE SPA SMS 06/05/24 07/10/24 History Lactobacillus rhamnosus GG 10 1 cap PO DAILY 07/18/24 07/23/24 History billion cell capsule (Culturelle) acetaminophen 325 mg tablet 650 mg PO Q4H PRN fever Unknown History aluminum-magnesium hydroxide 200 30 ml PO Q4H PRN GI D ISTRESS 07/18/24 Unknown History mg-200 mg/5 mL oral suspension amlodipine 5 mg tablet 5 mg PO QHS 07/18/24 5 History docusate sodium 100 mg tablet 100 mg PO BID PRN consti pation 07/18/24 Unknown History dronabinol 2.5 mg capsule (Marinol) 2.5 mg PO BID 06/3007/23/24 History guaifenesin 100 mg/5 mL oral liquid 200 mg PO Q4H PRN cough 07/18/24 07/14/24 History levothyroxine 200 mcg tablet 200 mcg PO DAILY 07/18/24 07/23/24 History midodrine 10 mg tablet 10 mg PO DAILY PRN for SBP l ower 07/18/24 Unknown History than 110 during dialysis tx ondansetron 4 mg disintegrating 4 mg PO DAILY PRN naus ea and 07/18/24 Unknown History tablet vomiting oxycodone 5 mg tablet 5 mg PO Q6H PRN pain 5 07/22/24 History polyethylene glycol 3350 17 17 g PO QODAY 07/18/24 History gram/dose oral powder sennosides 8.6 mg-docusate sodium 1 tab-cap PO DAILY P RN constipation 07/18/24 Unknown History 50 mg tablet (Senna Plus) sertraline 25 mg tablet 25 mg PO DAILY 07/18/2406/30 History vitamin B complex-vitamin C-folic 1 tab PO DAILY 07/1807/23/24 History acid 0.8 mg tablet (Renal Vitamin) bisacodyl 10 mg rectal suppository 10 mg MT DAILY PRN constipation 07/31/24 Unknown History cholecalciferol (vitamin D3) 125 125 mcg PO DAILY 10/20 Unknown History mcg (5,000 unit) capsule glucagon HCl 1 mg solution for 1 mg IM Q20M PRN hypogl ycemia 07/31/24 Unknown History injection (Glucagon (HCl) Emergency Kit) ascorbic acid (vitamin C) 500 mg 500 mg PO DAILY #0 ta bs 08/13/24 Unknown Rx tablet ferrous sulfate 325 mg (65 mg 325 mg PO QODAY #30 tabs 08/13/24 Unknown Rx iron) tablet loperamide 2 mg capsule 2 mg PO Q4H PRN DIARRHEA #0 caps 08/13/24 Unknown Rx pantoprazole 40 mg tablet,delayed 40 mg PO BID #0 tabs 08/13/24 Unknown Rx release acetaminophen 650 mg rectal 650 mg MT Q4H PRN fever or pain 08/14/24 Unknown History suppository dextrose 40 % oral gel (Glucose 10 g PO Q15M PRN hypog lycemia 08/14/24 Unknown History Gel) mirtazapine 15 mg tablet 15 mg PO QHS 08/14/24 Unknow n History sodium phosphates 19 gram-7 118 ml MT DAILY PRN consti pation 08/14/24 Unknown History gram/118 mL enema (Enema) Allergy/AdvReac Type Severity Reaction Status Date / Time iodine Allergy Intermediate Nausea Verified 08/14/24 07:32 shellfish derived Allergy Intermediate Nausea Verified 08/14/24 07:32 Social History Smoking Status: Former smoker Tobacco: How many years used: 40 alcohol intake: former substance use type: does not use EXAM Physical Exam Const Vital Signs: 08/14/24 07:25 08/14/24 07:33 08/14/24 07:38 Temperature 97.2 F L Temperature Source Temporal Pulse Rate 122 H Respiratory Rate 26 H Respiratory Effort Short of Breath Labored Accessory Muscle Use Nasal Flaring Respiratory Depth Shallow Respiratory Pattern Tachypnea Blood Pressure 157/101 H Blood Pressure Mean 119 Pulse Ox 89 Oxygen Delivery Method Non-Rebreather Non-Rebreather Non-Rebreather Oxygen Flow Rate (L/min) 15 15 08/14/24 07:49 08/14/24 08:25 08/14/24 09:00 Temperature 97.4 F L Temperature Source Temporal Pulse Rate 119 H 110 H 103 H Respiratory Rate 20 H 21 H 18 Respiratory Effort Respiratory Depth Respiratory Pattern Normal Blood Pressure 135/68 H 127/63 H Blood Pressure Mean 90 84 Pulse Ox 98 98 Oxygen Delivery Method Nasal Cannula Room Air Oxygen Flow Rate (L/min) 3 08/14/24 10:00 08/14/24 11:00 Temperature 97.0 F L 98.6 F Temperature Source Temporal Temporal Pulse Rate 95 91 Respiratory Rate 20 H 23 H Respiratory Effort Respiratory Depth Respiratory Pattern Blood Pressure 131/75 H 136/80 H Blood Pressure Mean 93 98 Pulse Ox 96 98 Oxygen Delivery Method Nasal Cannula Nasal Cannula Oxygen Flow Rate (L/min) 4 MDM MDM MDM Narrative Medical decision making narrative: 64-year-old female with history of ESRD on HD Monday, Monday, Monday, failureto thrive with PEG tube, AAA, factor V Leiden, HLD presents for evaluation of shortness of breath. Differential diagnosis includes but is not limited to pneumonia, viral illness including COVID and influenza, CHF exacerbation, ACS, electrolyte abnormality, UTI. Breathing treatments ordered. Respiratory/cardiac/infectious workup ordered. Chest x-ray was interpreted and reviewed by me, ED physician. ABG without hypercapnia or hypoxia. Patient is on 15 L nonrebreather. Will decrease this to nasal cannula and titrate down oxygen. On reevaluation after breathing treatments. Patient states her shortness of breath has improved. She is now on 4 L nasal cannula. Chest x-raywith pulmonary congestion and edema. Patient has small bilateral pleural effusions. Cannot rule out pneumonia however suspect this is more pulmonary congestion in nature. Given patient's tachycardia, recent hospitalization will cover prophylactically for possible pneumonia. Rocephin and azithromycin ordered. CBC without leukocytosis. Patient has baseline anemia and thrombocytopenia. Coagulation panel unremarkable. CMP with mild hyponatremia at 131 and hyperkalemia 5.4. Patient is post to receive dialysis today. Patient at her baseline creatinine of 1.34. Lactic acid elevated at 3.1. This is likely secondary to her malnutrition however cannot rule out infectious process such as pneumonia. Will hold off on fluids at this time given patient is fluid overloaded on exam as well as chest x-ray. Do not want to worsen respiratory status. No transaminitis. Troponin elevated at 224 and 221. Suspect this is secondary to her ESRD and not acute ACS. UA positive for leuk esterase and WBC. Negative for bacteria. Will send for culture. Patient will warrant admission. Patient will need dialysis as well as further workup including echocardiogram. Patient and family member updated of all results and confirmed understanding the plan. I spoke with the hospitalist, Dr. Magaña. He would like me to reach out to cardiology given her elevated troponins. I spoke with Dr. Nicholas, he agrees that troponin is likely secondary to ESRD. No need for catheterization or consult. Dr. Magaña was updated of Dr. Nicholas recommendation and he accepted admission. EKG: Interpreted by me/EM physician: EKG with sinus tachycardia. Heart rate 109. Patient has nonspecific ST changes with new depressions in V3 compared to previous EKG on August 03. Impression: 1. Acute hypoxia 2. Pulmonary edema/anasarca 3. Pleural effusions 4. Possible pneumonia 5. ESRD on HD 6. Mild hyponatremia 7. Hyperkalemia 6. Malnutrition/failure to thrive Lab Data Labs: Laboratory Results - last 24 hr 08/14/24 08/14/24 08/14/24 07:48 07:48 08:48 WBC 9.0 RBC 3.09 L Hgb 8.7 L Hct 29.0 L MCV 93.9 MCH 28.2 MCHC 30.0 L RDW Std Deviation 70.0 H RDW Coeff of Monika 21.0 H Plt Count 147 L MPV 10.2 Immature Gran % (Auto) 3.300 H Neut % (Auto) 79.5 H Lymph % (Auto) 8.6 L Erath % (Auto) 6.1 Eos % (Auto) 1.9 Baso % (Auto) 0.6 Absolute Neuts (auto) 7.1 Absolute Lymphs (auto) 0.77 L Nucleated RBC % 0 Polychromasia RARE Anisocytosis RARE PT 14.6 INR 1.1 APTT 33.6 Sodium 131 L Potassium 5.4 H Chloride 104 Carbon Dioxide 19.2 L Anion Gap 9 BUN 39 H Creatinine 1.34 H Estim Creat Clear Calc 38.48 L Est GFR (MDRD) Non-Af 45 L BUN/Creatinine Ratio 29.1 H Glucose 85 Lactic Acid 3.1 H* Calcium 7.8 Phosphorus 3.0 Magnesium 1.4 L Total Bilirubin 0.18 AST 29 ALT 9 Alkaline Phosphatase 71 Lactate Dehydrogenase 239 Troponin T High Sens 224 H* D Troponin T Hi Sens 2 Hr Total Protein 5.5 L 5.4 L Albumin 2.0 L Globulin 3.4 Albumin/Globulin Ratio 0.6 L Urine Color Yellow Urine Clarity Sl. Cloudy Urine pH 8.0 Ur Specific Gladys 1.010 Urine Protein 30 H Urine Glucose (UA) Normal Urine Ketones Negative Urine Occult Blood 25 H Urine Nitrite Negative Urine Bilirubin Negative Urine Urobilinogen Normal Ur Leukocyte Esterase 500 H Urine RBC 0-5 SEEN Urine WBC 25-50 SEEN Ur Squamous Epith Cells 0-5 SEEN Calcium Oxalate Crystal 1+ Urine Bacteria 0 SEEN Urine Mucus 0 SEEN 08/14/24 10:10 WBC RBC Hgb Hct MCV MCH MCHC RDW Std Deviation RDW Coeff of Monika Plt Count MPV Immature Gran % (Auto) Neut % (Auto) Lymph % (Auto) Erath % (Auto) Eos % (Auto) Baso % (Auto) Absolute Neuts (auto) Absolute Lymphs (auto) Nucleated RBC % Polychromasia Anisocytosis PT INR APTT Sodium Potassium Chloride Carbon Dioxide Anion Gap BUN Creatinine Estim Creat Clear Calc Est GFR (MDRD) Non-Af BUN/Creatinine Ratio Glucose Lactic Acid Calcium Phosphorus Magnesium Total Bilirubin AST ALT Alkaline Phosphatase Lactate Dehydrogenase Troponin T High Sens Troponin T Hi Sens 2 Hr 221 H* Total Protein Albumin Globulin Albumin/Globulin Ratio Urine Color Urine Clarity Urine pH Ur Specific Gladys Urine Protein Urine Glucose (UA) Urine Ketones Urine Occult Blood Urine Nitrite Urine Bilirubin Urine Urobilinogen Ur Leukocyte Esterase Urine RBC Urine WBC Ur Squamous Epith Cells Calcium Oxalate Crystal Urine Bacteria Urine Mucus ABG Data ABG results: ABG 08/14/24 08:32 Specimen Type ART Sample Site R Radial pH 7.36 Bicarbonate Actual 22.0 Total CO2 23 Base Excess -3 L O2 Saturation 98 O2 % 44.0 ABG pCO2 39.1 ABG pO2 105 H Linda Test Positive O2 Delivery Device Cannula Vent Mode Not entered Radiography Diagnostic Testing: Clinical Impression(s) from Imaging Studies Chest X-Ray 08/14/24 08:33 IMPRESSION: 1. Pulmonary congestion and edema. Pneumonia cannot be excluded. 2. Bilateral pleural effusions. Reading Location: [facility] Discharge Plan Disposition Disposition: Acute Care Hospital [facility] Discharge Date/Time: 08/14/24 12:48 What to do if you have Problems For any increased pain, shortness of breath, bleeding, nausea or vomiting, chestpain, or any unexpected problems, contact your Primary Care Provider. Call [facility] ([phone]) or report to the closest Emergency Room. Call 911 if necessary. 08/14/24 1712 <Electronically signed by Ciaran Rodrigez DO> Cosigner Signature (if applicable): CC: Millie Massye MD ~ Signed [facility] Work Phone: 1([phone] 315-841203-19-2025 History and physical note Author Nikolas Magaña [facility] Note Date/Time August 14, 2024 1:0 0pm [facility] Medical Records Department [address] [place] [id number] H&P Exam - Hospitalist 08/14/24 1221 MR#: [id number] Acct: [id number] Name: SCOTT OBREGON Rep #:[id number] : 1960 64 From: Nikolas Bradley PCP: Millie Massey MD Status:ADM IN Location: [place] [address] HPI - General General Date of Admission: 08/14/24 Date of Service: 08/14/24 Chief Complaint: Shortness of breath, could not breathe HPI Narrative SCOTT OBREGON, is a 64 F who was just discharged yesterday to [facility] came to ED feeling shortness of breath, stated that she could not breathe. Patient is severely malnourished and has chronic bilateral lower extremity edema, paraparesis, PEG tube and small coccygeal decubitus ulcer, stage II. Patient was supposed to have dialysis today. EMS put on 15 L of nonrebreather but currently on 4 L of oxygen in ED. She is also tachycardic and tachypneic. She was admitted for 13 days and is chronically for physically and mentally compromised. Patient was also treated with antibiotic IV antibiotic broad- spectrum Zosyn for 8 days. She also has chronic left upper abdominal wound which is healing and C. difficile antigen was positive but toxin negative. Patient was given 1 dose of IV ceftriaxone and azithromycin based on the chest x-ray finding of bilateral infiltrate which more obtained pulmonary congestion and edema and bilateral small to moderate pleural effusion. Patient is admittedfor pulmonary edema/anasarca. Need hemodialysis [facility] Medical History (Updated 08/14/24 @ 12:[address] 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 Gross hematuria Retroperitoneal hematoma Constipation, unspecified Raynaud's syndrome without gangrene Hypo-osmolality and hyponatremia Hyperlipidemia, unspecified Hypothyroidism, unspecified Anemia, unspecified Need for assistance with personal care Other malaise Other abnormalities of gait and mobility Unsteadiness on feet Muscle weakness (generalized) Other symbolic dysfunctions Dysphagia, oropharyngeal phase Essential (primary) hypertension Activated protein C resistance Unspecified severe protein-calorie malnutrition Acute respiratory failure with hypoxia Emphysema, unspecified Peripheral vascular disease, unspecified Enterocolitis due to Clostridium difficile, not specified as recurrent Acute kidney failure, unspecified Leakage of aortic (bifurcation) graft (replacement), subsequent encounter Abdominal aortic aneurysm, ruptured, unspecified Home Medications ?Medication ?Instructions ?Recorded ?Last Taken ?Type aspirin 81 mg tablet,delayed 81 mg PO DAILY 03/11/24 0 07/23/24 History release (Adult Aspirin Regimen) Held on 08/14/24. Instructions: MD Ordered atorvastatin 20 mg tablet 20 mg PO QHS 03/11/24 History metoprolol tartrate 25 mg tablet 25 mg PO BID 03/11/24 07/22/24 History thiamine HCl (vitamin B1) 100 mg 100 mg PO BID 4 07/23/24 History tablet cyclobenzaprine 5 mg tablet 5 mg PO Q8H PRN MUSCLE SPA SMS 06/05/24 07/10/24 History Lactobacillus rhamnosus GG 10 1 cap PO DAILY 07/18/24 07/23/24 History billion cell capsule (Culturelle) acetaminophen 325 mg tablet 650 mg PO Q4H PRN fever Unknown History aluminum-magnesium hydroxide 200 30 ml PO Q4H PRN GI D ISTRESS 07/18/24 Unknown History mg-200 mg/5 mL oral suspension amlodipine 5 mg tablet 5 mg PO QHS 07/18/24 5 History docusate sodium 100 mg tablet 100 mg PO BID PRN consti pation 07/18/24 Unknown History dronabinol 2.5 mg capsule (Marinol) 2.5 mg PO BID 06/3007/23/24 History guaifenesin 100 mg/5 mL oral liquid 200 mg PO Q4H PRN cough 07/18/24 07/14/24 History levothyroxine 200 mcg tablet 200 mcg PO DAILY 07/18/24 07/23/24 History midodrine 10 mg tablet 10 mg PO DAILY PRN for SBP l ower 07/18/24 Unknown History than 110 during dialysis tx ondansetron 4 mg disintegrating 4 mg PO DAILY PRN naus ea and 07/18/24 Unknown History tablet vomiting oxycodone 5 mg tablet 5 mg PO Q6H PRN pain 5 07/22/24 History polyethylene glycol 3350 17 17 g PO QODAY 07/18/24 History gram/dose oral powder sennosides 8.6 mg-docusate sodium 1 tab-cap PO DAILY P RN constipation 07/18/24 Unknown History 50 mg tablet (Senna Plus) sertraline 25 mg tablet 25 mg PO DAILY 07/18/2406/30 History vitamin B complex-vitamin C-folic 1 tab PO DAILY 07/1807/23/24 History acid 0.8 mg tablet (Renal Vitamin) bisacodyl 10 mg rectal suppository 10 mg MT DAILY PRN constipation 07/31/24 Unknown History cholecalciferol (vitamin D3) 125 125 mcg PO DAILY 10/20 Unknown History mcg (5,000 unit) capsule glucagon HCl 1 mg solution for 1 mg IM Q20M PRN hypogl ycemia 07/31/24 Unknown History injection (Glucagon (HCl) Emergency Kit) ascorbic acid (vitamin C) 500 mg 500 mg PO DAILY #0 ta bs 08/13/24 Unknown Rx tablet ferrous sulfate 325 mg (65 mg 325 mg PO QODAY #30 tabs 08/13/24 Unknown Rx iron) tablet loperamide 2 mg capsule 2 mg PO Q4H PRN DIARRHEA #0 caps 08/13/24 Unknown Rx pantoprazole 40 mg tablet,delayed 40 mg PO BID #0 tabs 08/13/24 Unknown Rx release acetaminophen 650 mg rectal 650 mg MT Q4H PRN fever or pain 08/14/24 Unknown History suppository dextrose 40 % oral gel (Glucose 10 g PO Q15M PRN hypog lycemia 08/14/24 Unknown History Gel) mirtazapine 15 mg tablet 15 mg PO QHS 08/14/24 Unknow n History sodium phosphates 19 gram-7 118 ml MT DAILY PRN consti pation 08/14/24 Unknown History gram/118 mL enema (Enema) Allergy/AdvReac Type Severity Reaction Status Date / Time iodine Allergy Intermediate Nausea Verified 08/14/24 07:32 shellfish derived Allergy Intermediate Nausea Verified 08/14/24 07:32 Social History Smoking Status: Former smoker Tobacco: How many years used: 40 alcohol intake: former substance use type: does not use ROS ROS Narrative 14 system ROS limited because patient could not answer multiple questions she said I do not remember or does not know. Constitutional: Reports chronic fatigue and weakness. Always feel cold, was just discharged yesterday. HEENT: Reports systems reviewed and no addt'l complaints, except as documented Respiratory/Chest: Severe shortness of breath. On 15 L of nonrebreather by EMS CVS: No chest pain. Gastrointestinal: Has PEG tube. Left abdominal wall wound healing. Denies coffee ground emesis, hematemesis or vomiting Genitourinary: Denies burning urination or new urinary tract symptoms Musculoskeletal: Generalized muscle weakness, paraparesis. ROM limited Neurologic: Denies seizure-like symptoms. skin:Left abdominal wall wound healing. Endocrinology: Reports systems reviewed and no addt'l complaints, except as documented Hematologic/Lymphatic: Reports systems reviewed and no addt'l complaints, exceptas documented Vital Signs Vital Signs Vital Signs: 08/14/24 07:25 08/14/24 07:33 08/14/24 07:38 Temperature 97.2 F L Temperature Source Temporal Pulse Rate 122 H Respiratory Rate 26 H Respiratory Effort Short of Breath Labored Accessory Muscle Use Nasal Flaring Respiratory Depth Shallow Respiratory Pattern Tachypnea Blood Pressure 157/101 H Blood Pressure Mean 119 Pulse Ox 89 Oxygen Delivery Method Non-Rebreather Non-Rebreather Non-Rebreather Oxygen Flow Rate (L/min) 15 15 08/14/24 07:49 08/14/24 08:25 08/14/24 09:00 Temperature 97.4 F L Temperature Source Temporal Pulse Rate 119 H 110 H 103 H Respiratory Rate 20 H 21 H 18 Respiratory Effort Respiratory Depth Respiratory Pattern Normal Blood Pressure 135/68 H 127/63 H Blood Pressure Mean 90 84 Pulse Ox 98 98 Oxygen Delivery Method Nasal Cannula Room Air Oxygen Flow Rate (L/min) 3 08/14/24 10:00 08/14/24 11:00 08/14/24 12:20 Temperature 97.0 F L 98.6 F 97.8 F Temperature Source Temporal Temporal Pulse Rate 95 91 90 Respiratory Rate 20 H 23 H 17 Respiratory Effort Respiratory Depth Respiratory Pattern Blood Pressure 131/75 H 136/80 H 95/70 Blood Pressure Mean 93 98 78 Pulse Ox 96 98 94 Oxygen Delivery Method Nasal Cannula Nasal Cannula Oxygen Flow Rate (L/min) 4 Weight Weight: 123 lb 7.342 oz Body Mass Index (BMI) 16.7 Physical Exam Narrative Physical exam General: Alert, Oriented x3, Cooperative, but gets easily irritable severely chronic malnourished. BMI 16.7 kg/m? HEENT: Atraumatic, PERRLA, EOMI, Normocephalic Oral: No Gingival or Mucosal Lesions/ Ulcerations Neck: Supple, No JVD, Negative Carotid Bruits Chest wall/Lungs: Air entry diminished in bilateral lung bases. No crepitation/rhonchi Cardiovascular: Regular rate, Regular Rhythm, Normal S1, Normal S2, No M/G/R Abdomen: PEG tube. Dressing on the left upper quadrant abdominal wall ulcer, healing with granulation tissue. Bowel Sounds Present, soft, nontender : No dysuria. No renal angle tenderness. No suprapubic tenderness. Extremities: Bilateral pitting edema from thigh downward, stage II decubitus coccygeal ulcer present on admission since last admission Musculoskeletal: No Tenderness to Palpation of Joints or Extremities, chronic severe muscle atrophy. ROM restricted Neurological: Cranial nerves II-XII grossly intact, DTR 2+/4. Muscle power 4/5at major joints Psych/Mental Status: Flat affect, amnesia/MCI Results Lab / Micro Data 08/14/24 07:48 08/14/24 07:48 Labs: Laboratory Results - last 24 hr 08/14/24 07:48: WBC 9.0, RBC 3.09 L, Hgb 8.7 L, Hct 29.0 L, MCV 93.9, MCH 28.2, MCHC 30.0 L, RDW Std Deviation 70.0 H, RDW Coeff of Monika 21.0 H, Plt Count 147 L,MPV 10.2, Immature Gran % (Auto) 3.300 H, Neut % (Auto) 79.5 H, Lymph % (Auto) 8.6 L, Erath % (Auto) 6.1, Eos % (Auto) 1.9, Baso % (Auto) 0.6, Absolute Neuts (auto) 7.1, Absolute Lymphs (auto) 0.77 L, Nucleated RBC % 0, Polychromasia RARE, Anisocytosis RARE, PT 14.6, INR 1.1, APTT 33.6, Sodium 131 L, Potassium 5.4 H, Chloride 104, Carbon Dioxide 19.2 L, Anion Gap 9, BUN 39 H, Creatinine 1.34 H, Estim Creat Clear Calc 38.48 L, Est GFR (MDRD) Non-Af 45 L, BUN/Creatinine Ratio 29.1 H, Glucose 85, Lactic Acid 3.1 H*, Calcium 7.8, Total Bilirubin 0.18, AST 29, ALT 9, Alkaline Phosphatase 71, Troponin T High Sens 224H* D, Total Protein 5.5 L, Albumin 2.0 L, Globulin 3.4, Albumin/Globulin Ratio 0.6 L 08/14/24 08:48: Urine Color Yellow, Urine Clarity Sl. Cloudy, Urine pH 8.0, Ur Specific Gladys 1.010, Urine Protein 30 H, Urine Glucose (UA) Normal, Urine Ketones Negative, Urine Occult Blood 25 H, Urine Nitrite Negative, Urine Bilirubin Negative, Urine Urobilinogen Normal, Ur Leukocyte Esterase 500 H, Urine RBC 0-5 SEEN, Urine WBC 25-50 SEEN, Ur Squamous Epith Cells 0-5 SEEN, Calcium Oxalate Crystal 1+, Urine Bacteria 0 SEEN, Urine Mucus 0 SEEN 08/14/24 10:10: Troponin T Hi Sens 2 Hr 221 H* Micro: Microbiology 08/14/24 07:35 Mucosa - Nose SARS-CoV-2, Influenza & RSV (PCR) - Final ABG Data ABG results: ABG 08/14/24 08:32 Specimen Type ART Sample Site R Radial pH 7.36 Bicarbonate Actual 22.0 Total CO2 23 Base Excess -3 L O2 Saturation 98 O2 % 44.0 ABG pCO2 39.1 ABG pO2 105 H Linda Test Positive O2 Delivery Device Cannula Vent Mode Not entered Imaging Radiology Impression Chest X-Ray 08/14/24 08:33 IMPRESSION: 1. Pulmonary congestion and edema. Pneumonia cannot be excluded. 2. Bilateral pleural effusions. Reading Location: [facility] Assessment & Plan Assessment/Plan (1) Pulmonary edema: (2) Anasarca: PLAN: Plan This is a 64-year-old female being admitted for shortness of breath, tachypnea and dyspnea, bilateral lower extremity edema and chest x-ray finding of small tomoderate bilateral effusion and pleural treatment 1. Pulmonary edema/anasarca due to ESRD on hemodialysis and possible heart failure: Patient is being admitted in PCU. 2D echo is ordered. Heart failure core measures including intake and output, fluid restriction less than 1500 mL, daily weight monitoring, light Naif wrap bandage, kidney and electrolytes monitoring. Lasix 40 mg IV 1 dose ordered. 2. Bilateral pleural effusion, small to moderate: This was present on the previous CT chest does not seem increased. Chest ultrasound with diagnostic thoracocentesis and fluid analysis labs ordered to confirm whether enough fluid for thoracocentesis but from chest x-ray discussed with Prodigiously and seems small pleural effusion 3. Recent PEG tube bumper ruptured with complex abdominal fluid collection in the abdominal cavity and the abnormal CT abdomen during last admission: Patient had 8 days of IV Zosyn during last admission. EGD on 08/03/2024 reviewed Impressions : - Normal esophagus. - Dislodged gastrostomy tube present characterized by ulceration. Treated with argon plasma coagulation (APC). - A non-bleeding large defect due to buried peg tube bumper was found in the stomach. Clips were placed. - No gross lesions in the duodenal bulb. Continue tube feed feeding. 4. Severe anemia that required blood transfusion during last admission from CKD/ruptured PEG tube: Her hemoglobin was 6.6 on 08/12 increased to 8.7. MCV normal. Platelet count 100 47K. Monitor hemoglobin. Anticoagulants contraindicated. She required PRBC transfusion during last admission 5 severe protein-calorie malnutrition: Her BMI was 12.6 kg/m?. Increased to 16.7 kg/m?. Continue nutrition consult and follow-up. On tube feed Jevity 1.5,50 cc/h. 6. Chronic Open abdominal wall wound: Chronic since February 2024. Had wound VAC at that time. Continue follow-up with the wound care. Healing good. 6. End stage renal disease: Secondary to ATN from hemorrhagic shock and never had recovery. Patient on dialysis every Monday. Nephrology consulted 7. Factor V Leiden deficiency hold off on her aspirin for now. 8. Hypertension: BP usually normal 1 31-1 36 and drops 95/70 during hemodialysis on Lasix. Hold antihypertensive medication no 9. Hypothyroidism: Continue levothyroxine 10. History of C. difficile: During previous admission C. difficile antigen waspositive but toxin is negative. Does not have active symptoms abdominal pain orcramps or diarrhea. No treatment indicated 11. Depression: Continue sertraline. 12. 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 Present since last admission VTE prophylaxis with SCDs for now Living will/advanced directive/end of life care: Patient does not have living will or advanced directive but has legal power of bankruptcy attorney for health.. After discussion of benefits/risks procedures involved with full code, DNR CC arrest and DNR CC, the patient opted for DNR CC arrest with no intubation. I explainedthe risk and benefit of CPR or intubation, DC shock, central line. Patient doesn't want artificial life support including intubation, ventilator and/chest compression but want central venous catheter, vasopressor and DC shock if needed Total time spent in [id number] encounter in discussion of advanced directive 17 minutes. Charges/Coding Visit Charges Inpatient E&M: 67974 Init Hosp L3 Procedures Hospitalists Procedures: 78704 Advncd Care Plan 30 Min 08/14/24 1300 <Electronically signed by Nikolas Magaña MD> Cosigner Signature (if applicable): CC: Dr. Nikolas Magaña MD; Millie Massey MD~ Signed [facility] Work Phone: 1(281) 520-390403-19-2025 Radiology Diagnostic study [facility]03-18-2025 [facility]03-03-2025 Note [facility]02-25-2025 Evaluation note* Diagnosis Onset Date Resolution Status Admit Date End stage renal disease resolved F ebru2024 5:23pm Chronic anemia inactive June 302024 5:23pm Leukocytosis inactive June 5:23pm Open abdominal wall wound inactive July 23, 2024 5:23pm Unspecified severe protein-calorie malnutrition inactive Jun 5:23pm ABLA (acute blood loss anemia) acute July 31, 2024 3:42pm Abnormal CT of the abdomen acute July 31, 2024 3:42pm Acute upper gastrointestinal bleeding acute July 31, 2024 3:42pm Anemia acute July 31 3:42pm Chronic anticoagulation acute 2024 3:42pm Coffee ground emesis acute 2024 3:42pm Factor V Leiden acute July 3:42pm GI bleed acute July 31 3:42pm Chronic kidney disease with end stage renal 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 chronic July 31, 2024 3:42pm Diarrhea resolved July 31 3:42pm End stage renal disease resolved 2024 3:42pm Hypoglycemia resolved July 31 3:42pm Raynaud disease inactive July 3:42pm Anasarca acute August 14 11:52am Pleural effusion acute August 142024 11:52am Pulmonary edema acute July 11:52am End stage renal disease resolved Raúl mcelroy 2024 11:52am [facility] Work Phone: 1(433) 829-253202-05-2025 NoteShoot thanks. AUTHENTICATED BY YING QUISPE ON 07/03/2024 13:05:25[facility]02-05-2025 History of Present illness Narrative* Ying Quispe DO - 07/03/2024 1:05 PM EST Shoot thanks. * Codie Garcia RN - 07/03/2024 11:12 AM EST Care Management Referral received from PCP office ESTHER/Angela- spoke with John mills- he confirms that referral received but pt chose to go with another [facility]. Spoke with pt introduced self, role and purpose of call. Pt states she did not get discharged. She stated some things changed. Pt had difficult time in telling this RNCM what facility she was at - eventually [facility]. Pt unsure of discharge date No future appointments. BP Readings from Last 3 Encounters: 04/04/24 (!) 82/60 03/20/24 (!) 147/68 02/25/24 100/67 documented in this [id number] History of Present illness Narrative* Codie Garcia RN - 07/02/2024 10:53 AM EST Care Management Referral received from PCP office 07/02/24 first attempt to contact Scott Obregon regarding Transition of Care Follow Up. Unable to initiate due to No Answer, Left Message, I will continue to try later Provided Care Management Introduction Letter, Today via [employer] ESTHER/Angela- attempted to contact unsuccessfully, left voice message with contact information provided. BP Readings from Last 3 Encounters: 04/04/24 (!) 82/60 03/20/24 (!) 147/68 02/25/24 100/67 No future appointments. documented in this [id number] Evaluation note* Diagnosis Onset Date Resolution Status Admit Date Eschar of toe acute May 2:56pm PAD (peripheral artery disease) acut e June 05, 2024 2:56pm S/P AAA repair acute May 2:56pm End stage renal disease resolved F ebruary 2024 5:23pm Chronic anemia inactive June 302024 5:23pm Leukocytosis inactive June 5:23pm Open abdominal wall wound inactive July 23, 2024 5:23pm Unspecified severe protein-calorie malnutrition inactive Jun 5:23pm ABLA (acute blood loss anemia) acute July 31, 2024 3:42pm Abnormal CT of the abdomen acute July 31, 2024 3:42pm Acute upper gastrointestinal bleeding acute July 31, 2024 3:42pm Anemia acute July 31 3:42pm Chronic anticoagulation acute 2024 3:42pm Coffee ground emesis acute 2024 3:42pm Factor V Leiden acute July 3:42pm GI bleed acute July 31 3:42pm Chronic kidney disease with end stage renal 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 chronic July 31, 2024 3:42pm Diarrhea resolved July 31 3:42pm End stage renal disease resolved 2024 3:42pm Hypoglycemia resolved July 31 3:42pm Raynaud disease inactive July 3:42pm Anasarca acute August 14 11:52am Pleural effusion acute August 142024 11:52am Pulmonary edema acute July 11:52am End stage renal disease resolved [facility] 2024 11:52am [facility] Work Phone: 1(503) 202-284312-03-2024 Evaluation note* Diagnosis Onset Date Resolution Status Admit Date Unspecified severe protein-calorie malnutrition inactive Apr 1:29pm Eschar of toe acute May 2:56pm PAD (peripheral artery disease) acut e June 05, 2024 2:56pm S/P AAA repair acute May 2:56pm Chronic anemia inactive June 302024 5:23pm End stage renal disease inactive F 2024 5:23pm Leukocytosis inactive June 5:23pm Open abdominal wall wound inactive July 23, 2024 5:23pm Unspecified severe protein-calorie malnutrition inactive Jun 5:23pm ABLA (acute blood loss anemia) acute July 31, 2024 3:42pm Abnormal CT of the abdomen acute July 31, 2024 3:42pm Acute upper gastrointestinal bleeding acute July 31, 2024 3:42pm Anemia acute July 31 3:42pm Chronic anticoagulation acute 2024 3:42pm Coffee ground emesis acute 2024 3:42pm Diarrhea acute July 31 3:42pm Factor V Leiden acute July 3:42pm GI bleed acute July 31 3:42pm Hypoglycemia acute July 31, 025 3:42pm Raynaud disease acute July 3:42pm Chronic kidney disease with end stage renal 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 chronic July 31, 2024 3:42pm End stage renal disease inactive 2024 3:42pm Anasarca acute August 14 11:52am Pulmonary edema acute July 11:52am [facility] Work Phone: 1(911) 453-662112-03-2024 Evaluation note* Diagnosis Onset Date Resolution Status Admit Date Unspecified severe protein-calorie malnutrition inactive Apr 1:29pm Eschar of toe acute May 2:56pm PAD (peripheral artery disease) acut e June 05, 2024 2:56pm S/P AAA repair acute May 2:56pm End stage renal disease acute F 2024 5:23pm Chronic anemia inactive June 302024 5:23pm Leukocytosis inactive June 5:23pm Open abdominal wall wound inactive July 23, 2024 5:23pm Unspecified severe protein-calorie malnutrition inactive Jun 5:23pm ABLA (acute blood loss anemia) acute July 31, 2024 3:42pm Abnormal CT of the abdomen acute July 31, 2024 3:42pm Acute upper gastrointestinal bleeding acute July 31, 2024 3:42pm Anemia acute July 31 3:42pm Chronic anticoagulation acute M 2024 3:42pm Coffee ground emesis acute 2024 3:42pm Diarrhea acute July 31 3:42pm End stage renal disease acute M 2024 3:42pm Factor V Leiden acute July 3:42pm GI bleed acute July 31 3:42pm Hypoglycemia acute July 31, 2 025 3:42pm Raynaud disease acute July 3:42pm Chronic kidney disease with end stage renal 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 chronic July 31, 2024 3:42pm Anasarca acute August 14 11:52am End stage renal disease acute M 2024 11:52am Pleural effusion acute August 142024 11:52am Pulmonary edema acute July 11:52am [facility] Work Phone: 1(958) 842-476011-08-2024 History of Present illness Narrative* Corrina Dawn MA - 04/05/2024 2:45 PM EST Referral for hospice care and office note from Cate Contreras CNP 04/04/24 faxed to [facility] [phone]. documented in this [id number] History of Present illness Narrative* Cate Contreras CNP - 04/04/2024 10:00 AM EST Images from the original note were not included. Office Visit Patient Name: Scott Obregon MR #: [id number] Assessment/Plan: I saw Scott in the office today for a surgery follow-up. she is a 63 y.o. female with history of HTN, HLD, emphysema, factor 5 Leiden on Coumadin (held post-operatively), hypothyroidism, appendicitis s/p l/s APPY (09/14/2018, [facility]), ruptured AAA s/p EVAR w/ snorkel stent to L renal artery (09/2023, Dr. Guerra) c/b type Ia/III endoleak confirmed by CTA (01/09/24), R retroperitoneal hematoma with compression of R kidney and prolonged hospitalization 01/18-02/25/24 endograft explant with open AAA repair (01/24/24, Mari) c/b chyle leak s/p L chest tube placement (01/26-02/14), Cdiff on prolonged vanc taper, multifactorial ATN requiring iHD, wound necrosis who presented to [facility] from [facility] on 03/12/2024 with concerns for wound dehiscence. She underwent Debridement Of Abdominal Wound With Wound Vac Placement on 03/14/[address] Guerra. Patient discharged to SNF. Her family called the office yesterday, 04/03/24, with concerns that she is losing weight, failure to thrive. They are very concerned about her recovery. Dr. Guerra called family and discussed concernswith frailty and ultimate recovery. He has recommended hospice, as there are no further surgical int erventions to offer. Hi has agreed to hospice consult for patient. Today, in office, patient is alert to self only. There was a fair amount of difficulty getting her to office with lift assist called on patient, as transport staff reported he could not get her out of his van. BP was low. She is cachectic and frail. 6 foot tall and 115 lbs. In office, she verbalized [place] I removed the wound vac. Her incision is granulating without any appreciable drainage with depth about 2 CM. See photo. I did place wet to dry dressings to open areas. I sent her home with wound vac in a red plastic bag. Lungs are clear. Wound was painful to pack, patient winced in pain. Heart rhythm regular. Warm extremities. No edema. PLAN: Consult hospice Replace wound vac at facility No medication list at time, SNF to fax meds PCP:Ying Quispe, DO No return visit scheduled at this time Patient's Medications New Prescriptions No medications on file Previous Medications ACETAMINOPHEN (TYLENOL) 325 MG TABLET Take 2 (two) tablets (650 mg total) by mouth every 6 (six) hours as needed for pain . ACETAMINOPHEN (TYLENOL) 650 MG SUPPOSITORY Insert 1 (one) suppository (650 mg total) into the rectum every 4 (four) hours as needed for fever . ALUMINUM-MAGNESIUM HYDROXIDE 200-200 MG/5 ML SUSPENSION Take by mouth as needed for indigestion . AMINO ACIDS/PROTEIN HYDROLYS (PRO-STAT AWC ORAL) Take 30 mL by mouth at bedtime . AMLODIPINE (NORVASC) 10 MG TABLET Take 0.5 (one-half) tablet (5 mg total) by mouth daily . ASCORBIC ACID, VITAMIN C, (ASCORBIC ACID WITH TUSHAR HIPS) 500 MG TABLET Take 1 (one) tablet (500 mg total) by mouth every morning . ASPIRIN 81 MG CHEWABLE TABLET Chew and Swallow 1 (one) tablet (81 mg total) daily On hold since last week per pt. . ATORVASTATIN (LIPITOR) 20 MG TABLET Take 1 (one) tablet (20 mg total) by mouth nightly . BISACODYL (DULCOLAX) 10 MG SUPPOSITORY Insert 1 (one) suppository (10 mg total) into the rectum daily as needed for constipation . CYCLOBENZAPRINE (FLEXERIL) 5 MG TABLET Take 1 (one) tablet (5 mg total) by mouth 3 (three) times a day as needed for muscle spasms . DEXTROSE 40 % GEL Take 15 (fifteen) g by mouth as needed . FAMOTIDINE (PEPCID) 10 MG TABLET Take 1 (one) tablet (10 mg total) by mouth 2 (two) times a day . GLUCAGON 1 MG/ML SOLR Inject into the shoulder, thigh, or buttocks as needed . GUAIFENESIN 200 MG/5 ML LIQD Take 5 mL (200 mg total) by mouth every 4 (four) hours . HEPARIN (PORCINE) 5,000 UNIT/ML SOLN 5,000 UNITS, SODIUM CHLORIDE 0.9 % SOLP 2.1 ML Inject as directed every 8 (eight) hours . HYDRALAZINE (APRESOLINE) 25 MG TABLET Take 1 tablet by mouth twice daily as needed for systolic BP over 160. . LACTOBACILLUS RHAMNOSUS GG (CULTURELLE) 10 BILLION CELL CAPSULE Take 1 (one) capsule by mouth everymorning . LEVOTHYROXINE (SYNTHROID, LEVOTHROID) 150 MCG TABLET Take 1 (one) tablet (150 mcg total) by mouth once daily . MAGNESIUM HYDROXIDE (MOM) 400 MG/5 ML SUSP Take 30 mL (2,400 mg total) by mouth daily as needed . METOPROLOL TARTRATE (LOPRESSOR) 25 MG TABLET Take 1 (one) tablet (25 mg total) by mouth 2 (two) times a day . MIDODRINE (PROAMATINE) 10 MG TABLET Take 1 (one) tablet (10 mg total) by mouth daily as needed (SBP<110 mid-treatment during dialysis) . MULTIVIT,STRESS FORMULA-ZINC TAB Take 1 tablet by mouth every morning . [id number] FUM-FOLIC AC (THERA-M) 19 MG IRON- 400 MCG TAB Take 1 tablet by mouth every morning . MULTIVITAMIN (THERAGRAN) PER TABLET Take 1 (one) tablet by mouth daily . ONDANSETRON (ZOFRAN) 4 MG TABLET Take 1 (one) tablet (4 mg total) by mouth every 8 (eight) hours asneeded for nausea . OXYCODONE (OXY-IR) 5 MG CAPSULE Take 1 (one) capsule (5 mg total) by mouth every 6 (six) hours as needed for pain . SENNA-DOCUSATE (SENNOSIDES-DOCUSATE SODIUM) 8.6-50 MG Take 1 (one) tablet by mouth every morning . SODIUM PHOSPHATES (SODIUM PHOSPHATE) 9.5-3.5 GRAM/59 ML ENEM Insert into the rectum as needed . THIAMINE 100 MG TABLET Take 1 (one) tablet (100 mg total) by mouth 2 (two) times a day . Modified Medications No medications on file Discontinued Medications LACTOSE-REDUCED FOOD (BOOST BREEZE NUTRITIONAL ORAL) Take 237 mL by mouth 2 (two) times a day . LEVOTHYROXINE (SYNTHROID, LEVOTHROID) 125 MCG TABLET Take 1 (one) tablet (125 mcg total) by mouth daily Start: 02/26/24. LEVOTHYROXINE (SYNTHROID, LEVOTHROID) 25 MCG TABLET Take 1 (one) tablet (25 mcg total) by mouth twice weekly In addition to Synthroid 125mcg. Start: 02/26/24. Physical Examination: Vital Signs: BP (!) 82/60 (BP Location: Right arm, Patient Position: Sitting, BP Cuff Size: Adult) Pulse 94 Resp 12 Ht 6' Wt 52.2 kg (115 lb) SpO2 92% BMI 15.60 kg/m General: Alert, oriented to self only Lungs: Lungs clear per auscultation, respirations unlabored,normal respiratory effort Cardiovascular: Regular rate and rhythm, S1 and S2 normal, hypotensive Abdomen: Soft, nontender incision See above Neurologic: Confused, disoriented, no one accompanying patient to exam Psych: Mood and affect as above Cate Contreras CNP [phone] documented in this [id number] NoteOffice Visit Patient Name: Scott Obregon MR #: [id number] Assessment/Plan: I saw Scott in the office today for a surgery follow-up. she is a 63 y.o. female with history of HTN, HLD, emphysema, factor 5 Leiden on Coumadin (held post-operatively), hypothyroidism, appendicitis s/p l/s APPY (09/14/2018, [facility]), ruptured AAA s/p EVAR w/ snorkel stent to L renal artery (09/2023, Dr. Guerra) c/b type Ia/III endoleak confirmed by CTA (01/09/24), R retroperitoneal hematoma with compression of R kidney and prolonged hospitalization 01/18-02/25/24 endograft explant with open AAA repair (01/24/24, Mari) c/b chyle leak s/p L chest tube placement (01/26-02/14), Cdiff on prolonged vanc taper, multifactorial ATN requiring iHD, wound necrosis who presented to [facility] from ECF on 03/12/2024 with concerns for wound dehiscence. She underwent Debridement Of Abdominal Wound With Wound Vac Placement on 03/14/[address] Guerra. Patient discharged to SNF. Her family called the office yesterday, 04/03/24, with concerns that she is losing weight, failure to thrive. They are very concerned about her recovery. Dr. Guerra called family and discussed concerns with frailty and ultimate recovery. He has recommended hospice, as there are no further surgical interventions to offer. Hi has agreed to hospice consult for patient. Today, in office, patient is alert to self only. There was a fair amount of difficulty getting her to office with lift assist called on patient, as transport staff reported he could not get her out of his van. BP was low. She is cachectic and frail. 6 foot tall and 115 lbs. In office, she verbalized that she was [place] the [place]. I removed the wound vac. Her incision is granulating without any appreciable drainage with depth about 2 CM. See photo. I did place wet to dry dressings to open areas. I sent her home with wound vac in a red plastic bag. Lungs are clear. Wound was painful to pack, patient winced in pain. Heart rhythm regular. Warm extremities. No edema. PLAN: Consult hospice Replace wound vac at facility No medication list at time, SNF to fax meds PCP:Ying Quispe, DO No return visit scheduled at this time Patient's Medications New Prescriptions No medications on file Previous Medications ACETAMINOPHEN (TYLENOL) 325 MG TABLET Take 2 (two) tablets (650 mg total) by mouth every 6 (six) hours as needed for pain . ACETAMINOPHEN (TYLENOL) 650 MG SUPPOSITORY Insert 1 (one) suppository (650 mg total) into the rectum every 4 (four) hours as needed for fever . ALUMINUM-MAGNESIUM HYDROXIDE 200-200 MG/5 ML SUSPENSION Take by mouth as needed for indigestion . AMINO ACIDS/PROTEIN HYDROLYS (PRO-STAT AWC ORAL) Take 30 mL by mouth at bedtime . AMLODIPINE (NORVASC) 10 MG TABLET Take 0.5 (one-half) tablet (5 mg total) by mouth daily . ASCORBIC ACID, VITAMIN C, (ASCORBIC ACID WITH TUSHAR HIPS) 500 MG TABLET Take 1 (one) tablet (500 mg total) by mouth every morning . ASPIRIN 81 MG CHEWABLE TABLET Chew and Swallow 1 (one) tablet (81 mg total) daily On hold since last week per pt. . ATORVASTATIN (LIPITOR) 20 MG TABLET Take 1 (one) tablet (20 mg total) by mouth nightly . BISACODYL (DULCOLAX) 10 MG SUPPOSITORY Insert 1 (one) suppository (10 mg total) into the rectum daily as needed for constipation . CYCLOBENZAPRINE (FLEXERIL) 5 MG TABLET Take 1 (one) tablet (5 mg total) by mouth 3 (three) times a day as needed for muscle spasms . DEXTROSE 40 % GEL Take 15 (fifteen) g by mouth as needed . FAMOTIDINE (PEPCID) 10 MG TABLET Take 1 (one) tablet (10 mg total) by mouth 2 (two) times a day . GLUCAGON 1 MG/ML SOLR Inject into the shoulder, thigh, or buttocks as needed . GUAIFENESIN 200 MG/5 ML LIQD Take 5 mL (200 mg total) by mouth every 4 (four) hours . HEPARIN (PORCINE) 5,000 UNIT/ML SOLN 5,000 UNITS, SODIUM CHLORIDE 0.9 % SOLP 2.1 ML Inject as directed every 8 (eight) hours . HYDRALAZINE (APRESOLINE) 25 MG TABLET Take 1 tablet by mouth twice daily as needed for systolic BP over 160. . LACTOBACILLUS RHAMNOSUS GG (CULTURELLE) 10 BILLION CELL CAPSULE Take 1 (one) capsule by mouth every morning . LEVOTHYROXINE (SYNTHROID, LEVOTHROID) 150 MCG TABLET Take 1 (one) tablet (150 mcg total) by mouth once daily . MAGNESIUM HYDROXIDE (MOM) 400 MG/5 ML SUSP Take 30 mL (2,400 mg total) by mouth daily as needed . METOPROLOL TARTRATE (LOPRESSOR) 25 MG TABLET Take 1 (one) tablet (25 mg total) by mouth 2 (two) times a day . MIDODRINE (PROAMATINE) 10 MG TABLET Take 1 (one) tablet (10 mg total) by mouth daily as needed (SBP <110 mid-treatment during dialysis) . MULTIVIT,STRESS FORMULA-ZINC TAB Take 1 tablet by mouth every morning . [id number] FUM-FOLIC AC (THERA-M) 19 MG IRON- 400 MCG TAB Take 1 tablet by mouth every morning . MULTIVITAMIN (THERAGRAN) PER TABLET Take 1 (one) tablet by mouth daily . ONDANSETRON (ZOFRAN) 4 MG TABLET Take 1 (one) t (more content not included)... [facility]10[facility]23[facility]10-[facility] 03-19-20[facility]21[facility]2024 [facility]10-21-2024 [facility]10-21-2024 Note [facility] [id number] [facility] 03-17-2024 [facility] Smchzmmm44-54-0749 [facility] Mpzcwqtx27-89-2907 [facility] Vbwcsmum97-73-6873 [facility] Upcacyxo78-80-6762 [facility] Kzogimyd37-49-7359 Note [facility] Delooist37-45-3879 [facility] 03-15-2024 [facility] Niidzrhn71-25-1583 [facility] Wglpgvfm35-23-5355 [facility] Nxjomhtj59-16-2725 [facility] Xsogejih66-09-3426 [facility] Ineccmnl66-15-8153 Note [facility] Buevujlw84-80-5660 [facility] 03-13-2024 [facility] Szvqznjy48-11-2573 [facility] Bddwwrox82-56-0263 [facility] Sydwjwet20-53-0346 [facility] Lzkvabce40-04-0592 [facility] Uunfmkiq24-02-3317 Note [facility] Cbzqeyef47-43-7718 [facility] 02-23-2024 [facility] Upfchenw88-00-5419 [facility] Otmgwlsn42-39-3409 [facility] Ngqlytut40-12-2083 [facility] Jmivxmeh00-07-1953 [facility] Ixejdzfn75-26-3331 Note [facility] Vxgkozfd81-41-2432 [facility] 02-22-2024 [facility] Royfoxxc86-47-2077 [facility] Punzpnds69-68-3490 [facility] Sxqsfdsm32-86-5971 [facility] Rzmuwtsi44-84-7297 [facility] Hssfzmby74-14-4218 Note [facility] Vocdukrz19-39-7578 [facility] 02-19-2024 [facility] Qzopkmpy08-99-6639 [facility] Gbwjfusu57-17-6236 [facility]22-20[facility]22-2024 Note [facility]09-22-20[facility] 02-18-2024 [facility]-20[facility]-20[facility]-20[facility]-20[facility]20-2024 [facility]09-20-2024 [facility] 02-16-2024 [facility]-20[facility]-2024 NoteChest tube output near 0 Chest x-ray stable Patient tolerating diet No new complaints Remove chest tube Will follow serial chest x-rays/exam AUTHENTICATED BY SRI ROMAN, ON 02/15/2024 [facility]2024 [facility]09-18-20[facility] 02-14-2024 [facility]-20[facility]-18-20[facility]-18-20[facility]-17-20[facility]17-2024 Note [facility]09-17-20[facility] 02-13-2024 [facility]-2024 NotePROGRESS :This report has been cancelled.[facility]09-16-20[facility]2024 Note Patient stable sleeping this a.m. Chest tube output appears to have diminished over the weekend Chest x-ray with no major changes IR lymph angiogram today AUTHENTICATED BY SRI ROMAN, ON 02/12/2024 08:21[facility]01[facility]2024 [facility]09-15-2024 [facility] 02-11-2024 [facility]15-2024 [facility]-14-2024 [facility]-20[facility]-14-20[facility]-14-2024 Note [facility]09-13-2024 [facility] 02-09-2024 [facility]-13-20[facility]13-20[facility]-2024 NotePt w/o new complaints Cxr stable Ct output lower - 95cc serous Flush tube today / pleur evac marked to ensure output accuracy Lymphangiogram planned for monday AUTHENTICATED BY SRI ROMAN, ON 02/09/2024 08:23:39[facility]-12-2024 Note [facility]09-12-2024 [facility] 02-08-2024 [facility]-11-2024 [facility]-11-2024 [facility]-11-2024 [facility]-11-20[facility]-10-2024 Note [facility]09-10-2024 [facility] 02-06-2024 [facility]-10-2024 [facility]-10-2024 [facility]-10-2024 [facility]-09-2024 [facility]09-09-2024 Note [facility]09[facility]09-2024 [facility] 02-05-2024 [facility] Jnjjriem13-67-5841 [facility] Wwlnfvdk33-97-9127 [facility] Yeofcxyz50-77-8235 [facility] Acxupffw71-19-7320 [facility] Oilftzss64-35-1045 Note [facility] Mwlbjvya81-06-8776 [facility] 02-03-2024 [facility] Mzjetbgd97-84-3970 [facility] Smqvsyea59-77-4091 [facility] Crikhgqj87-55-4174 [facility] Tgtnxlci81-80-2617 [facility] Qqrnrjjj24-43-5860 Note [facility] Rtfmqfvn61-47-0644 [facility] 02-02-2024 [facility] Zmsdkiwa68-47-2342 [facility] Ssrzlyod86-48-1278 [facility] Jpavdyzr29-61-3098 [facility] Fxtzztfv28-00-4011 [facility] Jhquzbmh42-49-0068 Note [facility] Glgfznwo40-77-1661 [facility] 01-31-2024 [facility] Kwwvbbju87-41-1912 [facility] Qprzcbkb88-67-3463 [facility] Kyxiuwma95-61-0007 [facility] Drmvqcdx88-87-7983 [facility] Mzvnbzuu02-70-0026 Note [facility] Ottjuwfo80-80-6300 [facility] 01-30-2024 [facility] Hrmffyid74-00-2505 [facility] Zfxhkozd86-88-7313 [facility] Zjntnbui80-89-9129 [facility] Aaepjkrh27-07-9146 [facility] Xfunpjdm52-85-5331 Note [facility] Kebgwtdy99-42-0278 [facility] 01-27-2024 [facility] Limublzc47-99-6548 [facility] Fwvrhllb04-77-0588 [facility] Aqqbioxp56-84-9339 [facility] Pmwlsohg91-52-8587 [facility]08-30-2024 Note [facility]08-30-2024 [facility] 01-26-2024 [facility]08-29-2024 [facility]08-29-2024 [facility]08-29-2024 [facility]08-29-2024 [facility]08-28-2024 Note [facility]08-28-2024 [facility] 01-24-2024 [facility]08-27-2024 [facility]08-27-2024 [facility]08-27-2024 [facility]08-27-2024 [facility] History of Present illness Narrative* Rafaela Garcias RN - 01/17/2024 10:23 AM EDT Spoke with Sergei in Transfer Center and provided details for direct admission to [facility] on Monday01/19/24 for Endoleak of Ruptured aneurysm Endograft for medical optimization prior to planned Explant of Endograft with Open Aneurysm Repair on Monday01/24/24. documented in this [id number] History of Present illness Narrative* Rafaela Garcias RN - 01/12/2024 8:43 AM EDT Spoke to patient and relayed admission and surgical plan/dates. She voiced understanding but did request a call from Dr. Guerra to further discuss surgery. Will send message to Dr. Guerra for follow up. * Rafaela Garcias RN - 01/11/2024 4:39 PM EDT Received request from Dr. Guerra to admit patient to [facility] at [facility] on 01/19/24 and plan for Explant of Endograft and Open Aortic Aneurysm Repair on 01/24/24. Case request made. Attempted to reach patient to notify patient of admission and surgery. No answer. Left message on voicemail with request to return call. documented in this [id number] History of Present illness Narrative* Rafaela Garcias RN - 01/11/2024 4:39 PM EDT Received request from Dr. Guerra to admit patient to [facility] at [facility] on 01/19/24 and plan for Explant of Endograft and Open Aortic Aneurysm Repair on 01/24/24. Case request made. Attempted to reach patient to notify patient of admission and surgery. No answer. Left message on voicemail with request to return call. documented in this [id number] Evaluation + Plan note* Assessment & Plan Note - Sarath Rey MD - 01/09/2024 1:48 PM EDT Associated Problem(s): Ruptured abdominal aortic aneurysm (AAA) (HCC) I reviewed the CT angiogram with the patient and her significant other who was in the room. 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 The patient had a ruptured abdominal aortic aneurysm that was treated with a parallel graft in the left renal artery dario Stehekin Excluder endograft. Duplex sonography demonstrated that the patient had a type Ia/III endoleak and this was confirmed today by CT angiography. The patient was physiologically devastated by herruptured aneurysm but is beginning to recover. There is a high probability with a type Ia/III endoleak that she will rerupture her aneurysm. There is a large right subhepatic retroperitoneal hematoma. I had an extensive consent conversation with the patient. I explained both endovascular and open techniques for prolonging her survival. There is a very high probability she will rerupture her aneurysm. I explained that with both techniques renal failure and dialysis may be necessary. I explained that endovascular parallel grafting is less invasive but is not assured at closing the endoleak. I also explained the complications of stent thrombosis, gutter leaks, intestinal ischemia, renal failure and estimated a 5% probability of mortality. I also discussed open explantation and juxtarenal repair with a tube graft through a left retroperitoneal approach. I stopped her Coumadin and aspirin today so that she could potentially have epidural analgesia for her perioperative period. I explained renal failure, graft thrombosis, graft infection and estimated mortality of approximately 10% with open surgery. Open surgery though has the benefit of a permanent repair. I am going to work with Dr. Edenilson Guerra who did her [facility] and the 2 of us will come up with a therapeutic solution for this patient. I will admit her to my service and Dr. Guerra has agreed to help me with her surgery. [id number] Miscellaneous Notes* Assessment & Plan Note - Sarath Rey MD - 01/09/2024 1:48 PM EDTAssociated Problem(s): Ruptured abdominal aortic aneurysm (AAA) (HCC) I reviewed the CT angiogram with the patient and her significant other who was in the room. 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 The patient had a ruptured abdominal aortic aneurysm that was treated with a parallel graft in the left renal artery dario Stehekin Excluder endograft. Duplex sonography demonstrated that the patient had a type Ia/III endoleak and this was confirmed today by CT angiography. The patient was physiologically devastated by herruptured aneurysm but is beginning to recover. There is a high probability with a type Ia/III endoleak that she will rerupture her aneurysm. There is a large right subhepatic retroperitoneal hematoma. I had an extensive consent conversation with the patient. I explained both endovascular and open techniques for prolonging her survival. There is a very high probability she will rerupture her aneurysm. I explained that with both techniques renal failure and dialysis may be necessary. I explained that endovascular parallel grafting is less invasive but is not assured at closing the endoleak. I also explained the complications of stent thrombosis, gutter leaks, intestinal ischemia, renal failure and estimated a 5% probability of mortality. I also discussed open explantation and juxtarenal repair with a tube graft through a left retroperitoneal approach. I stopped her Coumadin and aspirin today so that she could potentially have epidural analgesia for her perioperative period. I explained renal failure, graft thrombosis, graft infection and estimated mortality of approximately 10% with open surgery. Open surgery though has the benefit of a permanent repair. I am going to work with Dr. Edenilson Guerra who did her [facility] and the 2 of us will come up with a therapeutic solution for this patient. I will admit her to my service and Dr. Guerra has agreed to help me with her surgery. documented in this [id number] NoteAssessment Ruptured abdominal aortic aneurysm (AAA) (HCC) I reviewed the CT angiogram with the patient and her significant other who was in the room. 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 The patient had a ruptured abdominal aortic aneurysm that was treated with a parallel graft in the left renal artery and a Stehekin Excluder endograft. Duplex sonography demonstrated that the patient had a type Ia/III endoleak and this was confirmed today by CT angiography. The patient was physiologically devastated by her ruptured aneurysm but is beginning to recover. There is a high probability with a type Ia/III endoleak that she will rerupture her aneurysm. There is a large right subhepatic retroperitoneal hematoma. I had an extensive consent conversation with the patient. I explained both endovascular and open techniques for prolonging her survival. There is a very high probability she will rerupture her aneurysm. I explained that with both techniques renal failure and dialysis may be necessary. I explained that endovascular parallel grafting is less invasive but is not assured at closing the endoleak. I also explained the complications of stent thrombosis, gutter leaks, intestinal ischemia, renal failure and estimated a 5% probability of mortality. I also discussed open explantation and juxtarenal repair with a tube graft through a left retroperitoneal approach. I stopped her Coumadin and aspirin today so that she could potentially have epidural analgesia for her perioperative period. I explained renal failure, graft thrombosis, graft infection and estimated mortality of approximately 10% with open surgery. Open surgery though has the benefit of a permanent repair. I am going to work with Dr. Edenilson Guerra who did her original operative [facility] and the 2 of us will come up with a therapeutic solution for this patient. I will admit her to my service and Dr. Guerra has agreed to help me with her surgery. Imaging: I independently reviewed the CT angiogram dated 01/09/2024 and agree with the interpretation(s) with the following comments. It has not been read yet but the patient clearly has a type Ia/III endoleak from her parallel graft. She is at risk of continued mortality from a ruptured aneurysm. Scott Obregon 1960 63 y.o. female who presents to the office in followup of her CT angiogram. Duplex sonography demonstrated a 1A/3 endoleak. The patient has tenuous renal function and has lost a great deal of weight and stamina from her original ruptured aneurysm. Past Medical History: Diagnosis Date Acute appendicitis with localized peritonitis and gangrene, without perforation or abscess 09/15/2018 Anemia Arm DVT (deep venous thromboembolism), acute, left (HCC) 05/2022 Hyperlipidemia Hypertension borderline Hypothyroidism Past Surgical History: Procedure Laterality Date APPENDECTOMY APPENDECTOMY LAPAROSCOPIC N/A 09/14/2018 Procedure: APPENDECTOMY LAPAROSCOPIC; Surgeon: Татьяна Jenkins MD; Location: Main OR; Service: General Surgery ARTERIAL ANEURYSM REPAIR CV IR INTERVENTIONAL RADIOLOGY N/A 11/16/2022 Procedure: USg Biopsy of Left Axillary Lymph Node; Surgeon: Judd Allan MD; Location: IR LAB; Service: Interventional Radiology REPAIR ANEURYSM ABDOMINAL AORTIC ENDOVASCULAR N/A 10/09/2023 Procedure: Abdominal Aortic Endovascular Aneurysm Repair; Surgeon: Edenilson Guerra DO; Location: [facility]; Service: Gen-Vascular Current Outpatient Medications Medication Sig Dispense Refill acetaminophen (TYLENOL) 325 MG tablet Take 2 (two) tablets (650 mg total) by mouth every 6 (six) hours as needed for pain . amLODIPine (NORVASC) 5 MG tablet Take 1 (one) tablet (5 mg total) by mouth daily . 90 tablet 3 aspirin 81 mg chewable tablet Chew and Swallow 1 (one) tablet (81 mg total) daily . atorvastatin (LIPITOR) 20 MG tablet Take 1 (one) tablet (20 mg total) by mouth nightly . 90 tablet 3 diphenhydrAMINE (BENADRYL) 50 MG tablet Take 1 (one) tablet (50 mg total) by mouth once Take one tablet one hour prior to scan for 1 dose . 1 tablet 0 hydrALAZINE (APRESOLINE) 25 MG tablet Take 1 tablet by mouth twice daily as needed for systolic BP over 160. . 60 tablet 2 levothyroxine (SYNTHROID, LEVOTHROID) 125 MCG tablet TAKE 1 TABLET BY MOUTH DAILY 90 tablet 3 levothyroxine (SYNTHROID, LEVOTHROID) 25 MCG tablet Take one tablet on Monday and Monday only in addition to 125mcg dose. . (Patient taking differently: Take one tablet on Monday and Monday only in addition to 125mcg dose. .) 8 tablet 11 lidocaine 4 % patch Place 1 (one) patch on the skin daily Remove & Discard patch within 12 hours or as directed by MD . magnesium hydroxide (MOM) 400 mg/5 mL Susp Take 30 mL (2,400 mg total) by mouth daily as needed (CONSTIPATION) . metoprolol tartrate (LOPRESSOR) 25 MG tablet Take (more content not included)... [facility]08-13-2024 History of Present illness Narrative* Sarath Rey MD - 01/09/2024 1:33 PM EDT Assessment Ruptured abdominal aortic aneurysm (AAA) (HCC) I reviewed the CT angiogram with the patient and her significant other who was in the room. 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 The patient had a ruptured abdominal aortic aneurysm that was treated with a parallel graft in the left renal artery dario Stehekin Excluder endograft. Duplex sonography demonstrated that the patient had a type Ia/III endoleak and this was confirmed today by CT angiography. The patient was physiologically devastated by herruptured aneurysm but is beginning to recover. There is a high probability with a type Ia/III endoleak that she will rerupture her aneurysm. There is a large right subhepatic retroperitoneal hematoma. I had an extensive consent conversation with the patient. I explained both endovascular and open techniques for prolonging her survival. There is a very high probability she will rerupture her aneurysm. I explained that with both techniques renal failure and dialysis may be necessary. I explained that endovascular parallel grafting is less invasive but is not assured at closing the endoleak. I also explained the complications of stent thrombosis, gutter leaks, intestinal ischemia, renal failure and estimated a 5% probability of mortality. I also discussed open explantation and juxtarenal repair with a tube graft through a left retroperitoneal approach. I stopped her Coumadin and aspirin today so that she could potentially have epidural analgesia for her perioperative period. I explained renal failure, graft thrombosis, graft infection and estimated mortality of approximately 10% with open surgery. Open surgery though has the benefit of a permanent repair. I am going to work with Dr. Edenilson Guerra who did her original [facility] and the 2 of us will come up with a therapeutic solution for this patient. I will admit her to my service and Dr. Guerra has agreed to help me with her surgery. Imaging: I independently reviewed the CT angiogram dated 01/09/2024 and agree with the interpretation(s) with the following comments. It has not been read yet but the patient clearly has a type Ia/IIIendoleak from her parallel graft. She is at risk of continued mortality from a ruptured aneurysm. Scott Obregon 1960 63 y.o. female who presents to the office in followup of her CT angiogram. Duplex sonography demonstrated a 1A/3 endoleak. The patient has tenuous renal function and has lost a great deal of weight and stamina from her original ruptured aneurysm. Past Medical History: Diagnosis Date Acute appendicitis with localized peritonitis and gangrene, without perforation or abscess 09/15/2018 Anemia Arm DVT (deep venous thromboembolism), acute, left (HCC) 05/2022 Hyperlipidemia Hypertension borderline Hypothyroidism Past Surgical History: Procedure Laterality Date APPENDECTOMY APPENDECTOMY LAPAROSCOPIC N/A 09/14/2018 Procedure: APPENDECTOMY LAPAROSCOPIC; Surgeon: Татьяна Jenkins MD; Location: Main OR; Service: General Surgery ARTERIAL ANEURYSM REPAIR CV IR INTERVENTIONAL RADIOLOGY N/A 11/16/2022 Procedure: USg Biopsy of Left Axillary Lymph Node; Surgeon: Judd Allan MD; Location: IR LAB; Service: Interventional Radiology REPAIR ANEURYSM ABDOMINAL AORTIC ENDOVASCULAR N/A 10/09/2023 Procedure: Abdominal Aortic Endovascular Aneurysm Repair; Surgeon: Edenilson Guerra DO; Location: [facility]; Service: Gen-Vascular Current Outpatient Medications Medication Sig Dispense Refill acetaminophen (TYLENOL) 325 MG tablet Take 2 (two) tablets (650 mg total) by mouth every 6 (six) hours as needed for pain . amLODIPine (NORVASC) 5 MG tablet Take 1 (one) tablet (5 mg total) by mouth daily . 90 tablet 3 aspirin 81 mg chewable tablet Chew and Swallow 1 (one) tablet (81 mg total) daily . atorvastatin (LIPITOR) 20 MG tablet Take 1 (one) tablet (20 mg total) by mouth nightly . 90 tablet 3 diphenhydrAMINE (BENADRYL) 50 MG tablet Take 1 (one) tablet (50 mg total) by mouth once Take one tablet one hour prior to scan for 1 dose . 1 tablet 0 hydrALAZINE (APRESOLINE) 25 MG tablet Take 1 tablet by mouth twice daily as needed for systolic BP over 160. . 60 tablet 2 levothyroxine (SYNTHROID, LEVOTHROID) 125 MCG tablet TAKE 1 TABLET BY MOUTH DAILY 90 tablet 3 levothyroxine (SYNTHROID, LEVOTHROID) 25 MCG tablet Take one tablet on Monday and Monday only inaddition to 125mcg dose. . (Patient taking differently: Take one tablet on Monday and Monday only in addition to 125mcg dose. .) 8 tablet 11 lidocaine 4 % patch Place 1 (one) patch on the skin daily Remove & Discard patch within 12 hours or as directed by MD . magnesium hydroxide (MOM) 400 mg/5 mL Susp Take 30 mL (2,400 mg total) by mouth daily as needed (CONSTIPATION) . metoprolol tartrate (LOPRESSOR) 25 MG tablet Take 1 (one) tablet (25 mg total) by mouth 2 (two) times a day . 180 tablet 3 multivitamin (THERAGRAN) per tablet Take 1 (one) tablet by mouth daily . senna-docusate (sennosides-docusate sodium) 8.6-50 mg Take 1 (one) tablet by mouth daily . warfarin (COUMADIN) 2.5 MG tablet Take 1 (one) tablet (2.5 mg total) by mouth See Admin Instructions 2.5mg on //F 5mg on // RE-CHECK ON 12/20/23 . warfarin (COUMADIN) 5 MG tablet Take 1 tablet (5mg) on Monday, Monday, Monday, Monday. Take 1.5 tablets (7.5mg) on Monday, , Monday or as directed by the anticoagulation clinic. . (Patient taking differently: Take 1 (one) tablet (5 mg total) by mouth daily or as directed by the anticoagulation clinic. 2.5mg on mon12/08/23 .) 40 tablet 11 warfarin (COUMADIN) 7.5 MG tablet Take 5 mg by mouth See Admin Instructions l 2.5 mg on //. 5mg all other days. Recheck on 12/20/2023. . No current facility-administered medications for this visit. Facility-Administered Medications Ordered in Other Visits Medication Dose Route Frequency Provider Last Rate Last Admin sodium chloride 0.9% (NS) 125 mL/hr Intravenous Continuous Sarath Rey MD Family History Problem Relation Age of Onset Heart disease Father Hypertension Father Cancer Father colon Diabetes Father Heart disease Sister Diabetes Sister Hypertension Sister Thyroid disease Mother Kidney disease Mother Breast cancer Sister Thyroid disease Sister Social History Tobacco Use Smoking status: Former Current packs/day: 0.00 Types: Cigarettes Start date: 05/05/1996 Quit date: 10/08/2023 Years since quittin.2 Smokeless tobacco: Never Vaping Use Vaping status: Never Used Substance Use Topics Alcohol use: Not Currently Comment: Occassionally Drug use: No Review of Systems Constitutional: Positive for malaise/fatigue and weight loss. Gastrointestinal: Positive for bloating and abdominal pain. BP (!) 146/97 (BP Location: Right arm, Patient Position: Sitting) Pulse 73 Ht 5' 11 Wt 53.5 kg (118 lb) BMI 16.46 kg/m Physical Exam Cardiovascular: Rate and Rhythm: Regular rhythm. Pulses: Femoral pulses are 2+ on the right side and 2+ on the left side. Popliteal pulses are 2+ on the right side and 2+ on the left side. Dorsalis pedis pulses are 0 on the right side and 0 on the left side. Posterior tibial pulses are 2+ on the right side and 2+ on the left side. Heart sounds: Normal heart sounds. Comments: There is no Doppler signal in either dorsalis pedis artery. The patient does not have a pseudoaneurysm in either femoral puncture site and a brachial artery cutdown is healed primarily. Pulmonary: Effort: Pulmonary effort is normal. Breath sounds: No decreased breath sounds, wheezing, rhonchi or rales. Abdominal: General: There is no abdominal bruit. Palpations: There is pulsatile mass. Tenderness: There is abdominal tenderness. Feet: Comments: There is minor eschar on the dorsum of the right great toe and significant eschar on the tip of the left great toe. The findings are compatible with atheroembolization. The patient does nothave significant pain. The note was dictated using Chirply dictation system. The voice recognition software is inherently subject to errors including those of syntax and sound- alike substitutions which may escape proofreading. In such instances, original meaning may be extrapolated by contextual derivation. documented in this [id number] Instructions* Patient Instructions* Sae Esparza MA - 01/09/2024 12:30 PM EDT How to contact your Care Team: Provider: MD Ana Fernandez CNP Jill Bender, PA Nurse: Ray Guido RN To reschedule office appointments call Scheduling [phone] In case of an emergency please call 911. When in need of refills please call the phone number listed above. Please include medication name, pharmacy name and specify 30 or 90 day supply Please check with your pharmacy within 24 hours of your request for refill. You must follow up as directed to continue current refills. Thank you! documented in this [id number] History of Present illness Narrative* Ray Guido RN - 01/05/2024 3:56 PM EDT Order received from Dr. Rey for CTA, urgently due to recent AAA US results of endo leak. Patient will require hydration and IV dye allergy protocol. Patient aware that she will be receiving a call with date and time of CTA for next week. documented in this [id number] History of Present illness Narrative* Michelle Littlejohn RPh,PharmD - 01/03/2024 8:03 AM EDT Images from the original note were not included. Anticoagulation Progress Note Date of Visit: January 03, 2024 Patient Name: Scott Obregon : 1960 Age: 63 y.o. Scott Obregon had her INR checked and result called in by her home health nurse, Makenzie, from [facility]. Anticoagulation Summary As of 01/03/2024 INR goal: 2.0-3.0 TTR: 78.8% (11.6 mo) INR used for dosin.7 (01/03/2024) Warfarin maintenance plan: 2.5 mg (5 mg x 0.5) every Mon, Fri; 5 mg (5 mg x 1) all other days Weekly warfarin total: 30 mg Plan last modified: Michelle Littlejohn RPh,PharmD (01/03/2024) Next INR check: 01/10/2024 Priority: High Target end date: Indefinite Indications Acute deep vein thrombosis (DVT) of axillary vein of left upper extremity (HCC) [I82.A12] Lab Results Component Value Date WBC 6.54 11/23/2023 HGB 9.0 (L) 11/23/2023 HCT 29.2 (L) 11/23/2023 MCV 88.8 11/23/2023 EXTMCV 86 11/19/2021 PLT 299 11/23/2023 RBC 3.29 (L) 11/23/2023 Lab Results Component Value Date CREATININE 1.40 (H) 12/21/2023 CREATININE 1.7 (H) 12/11/2023 CREATININE 1.02 10/21/2021 Wt Readings from Last 3 Encounters: 12/27/23 53.1 kg (117 lb) 12/26/23 52.6 kg (116 lb) 12/06/23 51.7 kg (114 lb) Ht Readings from Last 1 Encounters: 12/26/23 5' 11 Encounter Summary: ASSESSMENT: Patient Findings Negatives: Patient Reported Falls, Signs/symptoms of thrombosis, Signs/symptoms of bleeding, Laboratory test error suspected, Change in health, Change in alcohol use, Change in activity, Upcoming invasive procedure, Emergency department visit, Upcoming dental procedure, Missed doses, Extra doses, Change in medications, Change in diet/appetite, Hospital admission, Bruising, Other complaints Warfarin taken in the previous 7 days: 27.5 mg INR is subtherapeutic today at 1.7. This is secondary to no clear cause, though patient has required higher doses in the past. Makenzie confirms the dose with patient and says she denies any missed doses, changes in vitamin K intake, changes in MVI, or start of any protein or nutrition shakes such as Boost or Ensure. Will increase dose slightly and recheck in 1 week. Patient is being discharged from home health today, so she will be returning to clinic next week. PLAN: Will increase weekly warfarin dose to 30 mg/week. This is an approximate 9% change from previous maintenance dosing regimen. Will check next INR in 1 week unless there are any changes before then. Encouraged patient to contact clinic with any changes. Michelle Littlejohn RPh,PharmD [facility] Dept: [phone] documented in this [id number] History of Present illness Narrative* Michelle Littlejohn RPh,PharmD - 12/27/2023 12:28 PM EDT Anticoagulation Progress Note Date of Visit: December 27, 2023 Patient Name: Scott Obregon : 1960 Age: 63 y.o. Scott Obregon Had her INR checked and result called in by her home health nurse, Rolan Mane. Anticoagulation Summary As of 12/27/2023 INR goal: 2.0-3.0 TTR: 79.9% (11.3 mo) INR used for dosin.1 (12/27/2023) Warfarin maintenance plan: 2.5 mg (5 mg x 0.5) every Mon, Wed, Fri; 5 mg (5 mg x 1) all other days Weekly warfarin total: 27.5 mg Plan last modified: Michelle Littlejohn, [place],PharmD (12/21/2023) Next INR check: 01/03/2024 Priority: High Target end date: Indefinite Indications Acute deep vein thrombosis (DVT) of axillary vein of left upper extremity (HCC) [I82.A12] Lab Results Component Value Date WBC 6.54 11/23/2023 HGB 9.0 (L) 11/23/2023 HCT 29.2 (L) 11/23/2023 MCV 88.8 11/23/2023 EXTMCV 86 11/19/2021 PLT 299 11/23/2023 RBC 3.29 (L) 11/23/2023 Lab Results Component Value Date CREATININE 1.40 (H) 12/21/2023 CREATININE 1.7 (H) 12/11/2023 CREATININE 1.02 10/21/2021 Wt Readings from Last 3 Encounters: 12/26/23 52.6 kg (116 lb) 12/06/23 51.7 kg (114 lb) 11/23/23 52.1 kg (114 lb 12.8 oz) Ht Readings from Last 1 Encounters: 12/26/23 5' 11 Encounter Summary: ASSESSMENT: Patient Findings Negatives: Patient Reported Falls, Signs/symptoms of thrombosis, Signs/symptoms of bleeding, Laboratory test error suspected, Change in health, Change in alcohol use, Change in activity, Upcoming invasive procedure, Emergency department visit, Upcoming dental procedure, Missed doses, Extra doses, Change in medications, Change in diet/appetite, Hospital admission, Bruising, Other complaints Warfarin taken in the previous 7 days: 25 mg INR is therapeutic today at 2.1. Antonietta confirms the warfarin dose with patient and says she denies any changes or concerns. Will continue with 2.5 mg MWF and 5 mg all other days for a total of 27.5mg/week. Patient will be going back to work next week, so she will be returning to the clinic. PLAN: Will continue weekly warfarin dose of 27.5 mg/week. Will check next INR in 1 week unless there are any changes before then. Encouraged patient to contact clinic with any changes. Michelle Littlejohn RPh,PharmD [facility] Dept: [phone] documented in this [id number] Evaluation + Plan note* Assessment & Plan Note - Sarath Rey MD - 12/26/2023 3:19 PM EDT Associated Problem(s): Ruptured abdominal aortic aneurysm (AAA) (HCC) The patient continues to recover from a heroic endovascular procedure to save her life. 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 I also gave her a prescription for a handicap sticker to help with her fatigue. 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 [id number] Miscellaneous Notes* Assessment & Plan Note - Sarath Rey MD - 12/26/2023 3:19 PM EDTAssociated Problem(s): Ruptured abdominal aortic aneurysm (AAA) (HCC) The patient continues to recover from a heroic endovascular procedure to save her life. 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 I also gave her a prescription for a handicap sticker to help with her fatigue. 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 documented in this [id number] NoteAssessment Ruptured abdominal aortic aneurysm (AAA) (HCC) The patient continues to recover from a heroic endovascular procedure to save her life. 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 I also gave her a prescription for a handicap sticker to help with her fatigue. 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 I also sent a consultation to Dr. Yisel Paiz because the patient has tenuous renal function and will need to be followed longitudinally. Scott Obregon 1960 63 y.o. female who presents to the office in followup of placement of an aortic stent graft and a left renal artery stent for ruptured abdominal aortic aneurysm. The patient was life flighted from [place] to [facility] where Dr. Bart Guerra and Dr. Tylor Kruger placed an aortic stent graft with a snorkel to her only left renal artery. She had a significant ruptured aneurysm and is slowly recovering. She reports that her appetite is not back to normal and she still is fatigued easily. Considering the massive retroperitoneal hematoma and the magnitude of her hemodynamic insult I am not surprised that she is slow to recover. Past Medical History: Diagnosis Date Acute appendicitis with localized peritonitis and gangrene, without perforation or abscess 09/15/2018 Anemia Arm DVT (deep venous thromboembolism), acute, left (HCC) 05/2022 Hyperlipidemia Hypertension borderline Hypothyroidism Past Surgical History: Procedure Laterality Date APPENDECTOMY APPENDECTOMY LAPAROSCOPIC N/A 09/14/2018 Procedure: APPENDECTOMY LAPAROSCOPIC; Surgeon: Татьяна Jenkins MD; Location: Main OR; Service: General Surgery ARTERIAL ANEURYSM REPAIR CV IR INTERVENTIONAL RADIOLOGY N/A 11/16/2022 Procedure: USg Biopsy of Left Axillary Lymph Node; Surgeon: Judd Allan MD; Location: IR LAB; Service: Interventional Radiology REPAIR ANEURYSM ABDOMINAL AORTIC ENDOVASCULAR N/A 10/09/2023 Procedure: Abdominal Aortic Endovascular Aneurysm Repair; Surgeon: Edenilson Guerra DO; Location: [facility]; Service: Gen-Vascular Current Outpatient Medications Medication Sig Dispense Refill acetaminophen (TYLENOL) 325 MG tablet Take 2 (two) tablets (650 mg total) by mouth every 6 (six) hours as needed for pain . amLODIPine (NORVASC) 5 MG tablet Take 1 (one) tablet (5 mg total) by mouth daily . 90 tablet 3 atorvastatin (LIPITOR) 20 MG tablet Take 1 (one) tablet (20 mg total) by mouth nightly . 90 tablet 3 hydrALAZINE (APRESOLINE) 25 MG tablet Take 1 tablet by mouth twice daily as needed for systolic BP over 160. . 60 tablet 2 levothyroxine (SYNTHROID, LEVOTHROID) 125 MCG tablet TAKE 1 TABLET BY MOUTH DAILY 90 tablet 3 levothyroxine (SYNTHROID, LEVOTHROID) 25 MCG tablet Take one tablet on Monday and Monday only in addition to 125mcg dose. . (Patient taking differently: Take one tablet on Monday and Monday only in addition to 125mcg dose. .) 8 tablet 11 lidocaine 4 % patch Place 1 (one) patch on the skin daily Remove & Discard patch within 12 hours or as directed by MD . magnesium hydroxide (MOM) 400 mg/5 mL Susp Take 30 mL (2,400 mg total) by mouth daily as needed (CONSTIPATION) . metoprolol tartrate (LOPRESSOR) 25 MG tablet Take 1 (one) tablet (25 mg total) by mouth 2 (two) times a day . 180 tablet 3 multivitamin (THERAGRAN) per tablet Take 1 (one) tablet by mouth daily . oxyCODONE (ROXICODONE) 5 MG immediate release tablet Take 1 (one) tablet (5 mg total) by mouth every 6 (six) hours as needed for pain . senna-docusate (sennosides-docusate sodium) 8.6-50 mg Take 1 (one) tablet by mouth daily . warfarin (COUMADIN) 2.5 MG tablet Take 1 (one) tablet (2.5 mg total) by mouth See Admin Instructions 2.5mg on // 5mg on /// RE-CHECK ON 12/20/23 . warfarin (COUMADIN) 5 MG tablet Take 1 tablet (5mg) on Monday, Monday, Monday, Monday. Take 1.5 tablets (7.5mg) on Monday, , Monday or as directed by the anticoagulation clinic. . (Patient taking differently: Take 1 (one) tablet (5 mg total) by mouth daily or as directed by the anticoagulation clinic. 2.5mg on mon12/08/23 .) 40 tablet 11 warfarin (COUMADIN) 7.5 MG tablet Take 5 mg by mouth See Admin Instructions l 2.5 mg on //. 5mg all other days. Recheck on 12/20/2023. . No current facility-administered medications for this visit. Family History Problem Relation Age of Onset Heart disease Father Hypertension Father Cancer Father colon Diabetes Father Heart disease Sister Diabetes Sister Hypertension Sister Thyroid disease Mother Kidney disease Mother Breast cancer Sister (more content not included)...[facility] 12-26-2023 History of Present illness Narrative* Sarath Rey MD - 12/26/2023 3:14 PM EDT Assessment Ruptured abdominal aortic aneurysm (AAA) (HCC) The patient continues to recover from a heroic endovascular procedure to save her life. 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 I also gave her a prescription for a handicap sticker to help with her fatigue. 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 I also sent a consultation to Dr. Yisel Pazi because the patient has tenuous renal function and will need to be followed longitudinally. Scott Obregon 1960 63 y.o. female who presents to the office in followup of placement of anaortic stent graft and a left renal artery stent for ruptured abdominal aortic aneurysm. The patient was life flighted from [place] to [facility] where Dr. Bart Guerra and Dr. Tylor Kruger placed an aortic stent graft with a snorkel to her only left renal artery. She had a significant ruptured aneurysm and is slowly recovering. She reports that her appetite is not back to normal and shestill is fatigued easily. Considering the massive retroperitoneal hematoma and the magnitude of herhemodynamic insult I am not surprised that she is slow to recover. Past Medical History: Diagnosis Date Acute appendicitis with localized peritonitis and gangrene, without perforation or abscess 09/15/2018 Anemia Arm DVT (deep venous thromboembolism), acute, left (HCC) 05/2022 Hyperlipidemia Hypertension borderline Hypothyroidism Past Surgical History: Procedure Laterality Date APPENDECTOMY APPENDECTOMY LAPAROSCOPIC N/A 09/14/2018 Procedure: APPENDECTOMY LAPAROSCOPIC; Surgeon: Татьяна Jenkins MD; Location: Main OR; Service: General Surgery ARTERIAL ANEURYSM REPAIR CV IR INTERVENTIONAL RADIOLOGY N/A 11/16/2022 Procedure: USg Biopsy of Left Axillary Lymph Node; Surgeon: Judd Allan MD; Location: IR LAB; Service: Interventional Radiology REPAIR ANEURYSM ABDOMINAL AORTIC ENDOVASCULAR N/A 10/09/2023 Procedure: Abdominal Aortic Endovascular Aneurysm Repair; Surgeon: Edenilson Guerra DO; Location: [facility]; Service: Gen-Vascular Current Outpatient Medications Medication Sig Dispense Refill acetaminophen (TYLENOL) 325 MG tablet Take 2 (two) tablets (650 mg total) by mouth every 6 (six) hours as needed for pain . amLODIPine (NORVASC) 5 MG tablet Take 1 (one) tablet (5 mg total) by mouth daily . 90 tablet 3 atorvastatin (LIPITOR) 20 MG tablet Take 1 (one) tablet (20 mg total) by mouth nightly . 90 tablet 3 hydrALAZINE (APRESOLINE) 25 MG tablet Take 1 tablet by mouth twice daily as needed for systolic BP over 160. . 60 tablet 2 levothyroxine (SYNTHROID, LEVOTHROID) 125 MCG tablet TAKE 1 TABLET BY MOUTH DAILY 90 tablet 3 levothyroxine (SYNTHROID, LEVOTHROID) 25 MCG tablet Take one tablet on Monday and Monday only inaddition to 125mcg dose. . (Patient taking differently: Take one tablet on Monday and Monday only in addition to 125mcg dose. .) 8 tablet 11 lidocaine 4 % patch Place 1 (one) patch on the skin daily Remove & Discard patch within 12 hours or as directed by MD . magnesium hydroxide (MOM) 400 mg/5 mL Susp Take 30 mL (2,400 mg total) by mouth daily as needed (CONSTIPATION) . metoprolol tartrate (LOPRESSOR) 25 MG tablet Take 1 (one) tablet (25 mg total) by mouth 2 (two) times a day . 180 tablet 3 multivitamin (THERAGRAN) per tablet Take 1 (one) tablet by mouth daily . oxyCODONE (ROXICODONE) 5 MG immediate release tablet Take 1 (one) tablet (5 mg total) by mouth every 6 (six) hours as needed for pain . senna-docusate (sennosides-docusate sodium) 8.6-50 mg Take 1 (one) tablet by mouth daily . warfarin (COUMADIN) 2.5 MG tablet Take 1 (one) tablet (2.5 mg total) by mouth See Admin Instructions 2.5mg on //F 5mg on // RE-CHECK ON 12/20/23 . warfarin (COUMADIN) 5 MG tablet Take 1 tablet (5mg) on Monday, Monday, Monday, Monday. Take 1.5 tablets (7.5mg) on Monday, , Monday or as directed by the anticoagulation clinic. . (Patient taking differently: Take 1 (one) tablet (5 mg total) by mouth daily or as directed by the anticoagulation clinic. 2.5mg on mon12/08/23 .) 40 tablet 11 warfarin (COUMADIN) 7.5 MG tablet Take 5 mg by mouth See Admin Instructions l 2.5 mg on //. 5mg all other days. Recheck on 12/20/2023. . No current facility-administered medications for this visit. Family History Problem Relation Age of Onset Heart disease Father Hypertension Father Cancer Father colon Diabetes Father Heart disease Sister Diabetes Sister Hypertension Sister Thyroid disease Mother Kidney disease Mother Breast cancer Sister Thyroid disease Sister Social History Tobacco Use Smoking status: Former Current packs/day: 0.00 Types: Cigarettes Start date: 05/05/1996 Quit date: 10/08/2023 Years since quittin.2 Smokeless tobacco: Never Vaping Use Vaping status: Never Used Substance Use Topics Alcohol use: Not Currently Comment: Occassionally Drug use: No ROS BP (!) 145/87 (BP Location: Right arm, Patient Position: Sitting) Pulse 65 Ht 5' 11 Wt 52.6 kg (116 lb) BMI 16.18 kg/m Physical Exam Cardiovascular: Pulses: Femoral pulses are 2+ on the right side and 2+ on the left side. Popliteal pulses are 2+ on the right side and 2+ on the left side. Dorsalis pedis pulses are 0 on the right side and 0 on the left side. Posterior tibial pulses are 2+ on the right side and 2+ on the left side. Comments: There is no Doppler signal in either dorsalis pedis artery. The patient does not have a pseudoaneurysm in either femoral puncture site and a brachial artery cutdown is healed primarily. Feet: Comments: There is minor eschar on the dorsum of the right great toe and significant eschar on the tip of the left great toe. The findings are compatible with atheroembolization. The patient does nothave significant pain. The note was dictated using Ch[employer] dictation system. The voice recognition software is inherently subject to errors including those of syntax and sound- alike substitutions which may escape proofreading. In such instances, original meaning may be extrapolated by contextual derivation. documented in this [id number] Instructions* Patient Instructions* Sae Esparza MA - 12/26/2023 11:53 AM EDT How to contact your Care Team: Provider: MD Ana Fernandez CNP Jill Bender, PA Nurse: Ray Guido RN To reschedule office appointments call Scheduling [phone] In case of an emergency please call [phone]. When in need of refills please call the phone number listed above. Please include medication name, pharmacy name and specify 30 or 90 day supply Please check with your pharmacy within 24 hours of your request for refill. You must follow up as directed to continue current refills. Thank you! documented in this [id number] NoteBmp is stable no change in meds see how she's doing please AUTHENTICATED BY YING QUISPE, ON 12/22/2023 06:40:[address] [place] [address] 12-21-2023 History of Present illness Narrative* Michelle Littlejohn RPh,PharmD - 12/21/2023 12:40 PM EDT Anticoagulation Progress Note Date of Visit: December 21, 2023 Patient Name: Scott Obreogn : 1960 Age: 63 y.o. Scott Obregon was called for an anticoagulation follow-up visit. INR obtained via venipuncture. Patient had a POC fingerstick INR done yesterday by her home health nurse, Adilene, from [facility]. Fingerstick INR result was 4.4, so it was recommended that patient have a venipuncture comparison. Nurse was unable to do blood draw yesterday, so patient went to [facility] this morning. Anticoagulation Summary As of 12/21/2023 INR goal: 2.0-3.0 TTR: 79.6% (11.2 mo) INR used for dosin.9 (12/21/2023) Warfarin maintenance plan: 2.5 mg (5 mg x 0.5) every Mon, Wed, Fri; 5 mg (5 mg x 1) all other days Weekly warfarin total: 27.5 mg Plan last modified: Michelle Littlejohn RPh,PharmD (12/21/2023) Next INR check: 12/27/2023 Priority: High Target end date: Indefinite Indications Acute deep vein thrombosis (DVT) of axillary vein of left upper extremity (HCC) [I82.A12] Lab Results Component Value Date WBC 6.54 11/23/2023 HGB 9.0 (L) 11/23/2023 HCT 29.2 (L) 11/23/2023 MCV 88.8 11/23/2023 EXTMCV 86 11/19/2021 PLT 299 11/23/2023 RBC 3.29 (L) 11/23/2023 Lab Results Component Value Date CREATININE 1.40 (H) 12/21/2023 CREATININE 1.7 (H) 12/11/2023 CREATININE 1.02 10/21/2021 Wt Readings from Last 3 Encounters: 12/06/23 51.7 kg (114 lb) 11/23/23 52.1 kg (114 lb 12.8 oz) 11/17/23 56.7 kg (125 lb) Ht Readings from Last 1 Encounters: 11/23/23 5' 11 Encounter Summary: ASSESSMENT: Patient Findings Positives: Change in medications (different MVI) Negatives: Patient Reported Falls, Signs/symptoms of thrombosis, Signs/symptoms of bleeding, Laboratory test error suspected, Change in health, Change in alcohol use, Change in activity, Upcoming invasive procedure, Emergency department visit, Upcoming dental procedure, Missed doses, Extra doses, Change in diet/appetite, Hospital admission, Bruising, Other complaints Warfarin taken in the previous 7 days: 25 mg due to held dose yesterday. Patient held her warfarin dose yesterday due to high INR. She had been taking 27.5 mg/week. INR is therapeutic today after a large drop from yesterday. Patient reports that she had been usinga different multivitamin the past few weeks, but is switching back to her old one. This may explainwhy INR's have been high lately, if Vit K amounts were different. Expect INR to continue to decrease over the next few days as we begin to see full effect of yesterday's held dose. Will keep current dosing regimen for now, rechecking next Monday. Patient is due for a [id number] visit in clinic, but according to nurseAdilene, patient will likely be discharged from home health very soon. Patient also confirms that she is trying to get clearance to return to work, so home health will likelybe ending in coming weeks. PLAN: Will continue weekly warfarin dose as above for a total of 25 mg before next INR check . Will check next INR in 1 week unless there are any changes before then. Encouraged patient to contact clinic with any changes. Michelle Littlejohn RPh,PharmD [facility] Dept: [phone] documented in this [id number] History of Present illness Narrative* Michelle Littlejohn RPh,PharmD - 12/13/2023 1:13 PM EDT Images from the original note were not included. Anticoagulation Progress Note Date of Visit: December 13, 2023 Patient Name: Scott Obregon : 1960 Age: 63 y.o. Scott Obregon Had her INR checked and result called in by her home health nurse, Makenzie, from [facility]. Anticoagulation Summary As of 12/13/2023 INR goal: 2.0-3.0 TTR: 81.6% (10.9 mo) INR used for dosin.1 (12/13/2023) Warfarin maintenance plan: 2.5 mg (5 mg x 0.5) every Mon, Wed, Fri; 5 mg (5 mg x 1) all other days Weekly warfarin total: 27.5 mg Plan last modified: Michelle Littlejohn, [facility],PharmD (12/13/2023) Next INR check: 12/20/2023 Priority: High Target end date: Indefinite Indications Acute deep vein thrombosis (DVT) of axillary vein of left upper extremity (HCC) [I82.A12] Lab Results Component Value Date WBC 6.54 11/23/2023 HGB 9.0 (L) 11/23/2023 HCT 29.2 (L) 11/23/2023 MCV 88.8 11/23/2023 EXTMCV 86 11/19/2021 PLT 299 11/23/2023 RBC 3.29 (L) 11/23/2023 Lab Results Component Value Date CREATININE 1.7 (H) 12/11/2023 CREATININE 1.02 10/21/2021 Wt Readings from Last 3 Encounters: 12/06/23 51.7 kg (114 lb) 11/23/23 52.1 kg (114 lb 12.8 oz) 11/17/23 56.7 kg (125 lb) Ht Readings from Last 1 Encounters: 11/23/23 5' 11 Encounter Summary: ASSESSMENT: Patient Findings Positives: Extra doses (took 7.5 mg on Monday) Negatives: Patient Reported Falls, Signs/symptoms of thrombosis, Signs/symptoms of bleeding, Laboratory test error suspected, Change in health, Change in alcohol use, Change in activity, Upcoming invasive procedure, Emergency department visit, Upcoming dental procedure, Missed doses, Change in medic ations, Change in diet/appetite, Hospital admission, Bruising, Other complaints Warfarin taken in the previous 7 days: 32.5 mg. Patient had been instructed to hold warfarin last Monday, then lower dose to 2.5 mg on Monday and 5 mg all other days for a total of 27.5 mg this past week. Patient confirms that she did hold warfarin on Monday, but took 7.5 mg on Monday and 5mg all other days. INR is supratherapeutic today at 4.1. This is secondary to patient taking incorrect warfarin doses.Will lower warfarin dose again since INR is relatively unchanged from last week. PLAN: Will decrease weekly warfarin dose to 27.5 mg/week. This is an approximate 15% change from previousmaintenance dosing regimen. Will check next INR in 1 week unless there are any changes before then. Encouraged patient to contact clinic with any changes. Michelle Littlejohn RPh,PharmD [facility] Dept: [phone] documented in this [id number] History of Present illness Narrative* Justine Hodges RPh, PharmD - 12/06/2023 10:21 AM EDT Images from the original note were not included. Anticoagulation Progress Note Date of Visit: December 06, 2023 Patient Name: Scott Obregon : 1960 Age: 63 y.o. Scott Obregon was called for an anticoagulation follow-up visit. INR obtained from an outside source: Home Health. INR was obtained via POC meter. Offered to order venipuncture confirmation given that INR results >4.0 on the POC meter can be inaccurate. The patient has declined the recommended comparison venipuncture INR test. I discussed with the patient that their point of care INR result may not be accurate today and that I am providing warfarin dosing instructions based on this potentially inaccurate INR result. The patient confirms understanding of the risks associated with utilizing a less accurate INR and acknowledges that they wish to proceed without a comparison venipuncture INR test. Telemedicine Consent Statement: I confirmed the patient's identity and that they were in [place] at the time of the visit. I discussed risks, benefits and alternatives of a real-time synchronous audiovisual consultation with the patient (and any accompanying persons) including the risks that the patient s personal health details and medical records will be discussed over real-time, synchronous, interactive video/audio/telecommunication technology, the visit will not be recorded without the expressconsent of both the provider and the patient, and that there are some limitations compared to [id number] evaluations. We elected to proceed. Anticoagulation Summary As of 12/06/2023 INR goal: 2.0-3.0 TTR: 83.4% (10.6 mo) INR used for dosin.4 (12/06/2023) Warfarin maintenance plan: 2.5 mg (5 mg x 0.5) every Fri; 5 mg (5 mg x 1) all other days Weekly warfarin total: 32.5 mg Plan last modified: Justine Hodges RPh,PharmD (12/06/2023) Next INR check: 12/13/2023 Priority: High Target end date: Indefinite Indications Acute deep vein thrombosis (DVT) of axillary vein of left upper extremity (HCC) [I82.A12] Lab Results Component Value Date WBC 6.54 11/23/2023 HGB 9.0 (L) 11/23/2023 HCT 29.2 (L) 11/23/2023 MCV 88.8 11/23/2023 EXTMCV 86 11/19/2021 PLT 299 11/23/2023 RBC 3.29 (L) 11/23/2023 Lab Results Component Value Date CREATININE 1.34 (H) 11/23/2023 CREATININE 1.02 10/21/2021 Wt Readings from Last 3 Encounters: 11/23/23 52.1 kg (114 lb 12.8 oz) 11/17/23 56.7 kg (125 lb) 11/01/23 59 kg (130 lb) Ht Readings from Last 1 Encounters: 11/23/23 5' 11 Encounter Summary: ASSESSMENT: Warfarin taken in the previous 7 days: 32.5 mg (dose decreased to 35 mg/week last week and she alsotook a one time lower dose of 2.5 mg on 11/28 due to elevated INR) INR is supratherapeutic today at 4.4 . Spoke with both the patient and the nurse, Makenzie, while she was still in the home. The patient confirms taking the warfarin dose as directed. She denies any recent alcohol, changes in vitamin K intake, changes in MVI, recent illness involving vomiting/diarrhea, antibiotics/steroids, increased tylenol use, or recent cranberry/grapefruit. She denies unusual bleeding or bruising. Given the upward trend in her INR despite a one time lower dose of 7/3 and a dose decrease, it appears that her warfarin requirements are even lower. Will hold warfarin today and then decrease her weekly dose from 35 mg/week to 32.5 mg/week with follow up next week via home health. PLAN: Will give a onetime dose of 0 mg today and then decrease weekly warfarin dose to 32.5 mg/week. Thisis an approximate 7% change from previous maintenance dosing regimen. . Will check next INR in 1 week via home health unless there are any changes before then. Encouraged patient to contact clinic with any changes. Justine Hodges RPh,PharmD [facility] Dept: [phone] documented in this [id number] Telephone encounter Note* Telephone Encounter - Rachael Gipson RN - 12/06/2023 8:27 AM EDT error [id number] Miscellaneous Notes* Telephone Encounter - Rachael Gipson RN - 12/06/2023 8:27 AM EDT error documented in this [id number] History of Present illness Narrative* Adilene Bryan RPh,PharmD - 11/29/2023 12:02 PM EDT Images from the original note were not included. Anticoagulation Progress Note Date of Visit: November 29, 2023 Patient Name: Scott Obregon : 1960 Age: 63 y.o. Scott Obregon Spoke to Adilene with [facility] . INR obtained from an outside source: Home Health. Anticoagulation Summary As of 11/29/2023 INR goal: 2.0-3.0 TTR: 85.3% (10.4 mo) INR used for dosin.5 (11/29/2023) Warfarin maintenance plan: 5 mg (5 mg x 1) every day Weekly warfarin total: 35 mg Plan last modified: Adilene Bryan, [facility],PharmD (11/29/2023) Next INR check: 12/06/2023 Priority: High Target end date: Indefinite Indications Acute deep vein thrombosis (DVT) of axillary vein of left upper extremity (HCC) [I82.A12] Lab Results Component Value Date WBC 6.54 11/23/2023 HGB 9.0 (L) 11/23/2023 HCT 29.2 (L) 11/23/2023 MCV 88.8 11/23/2023 EXTMCV 86 11/19/2021 PLT 299 11/23/2023 RBC 3.29 (L) 11/23/2023 Lab Results Component Value Date CREATININE 1.34 (H) 11/23/2023 CREATININE 1.02 10/21/2021 Wt Readings from Last 3 Encounters: 11/23/23 52.1 kg (114 lb 12.8 oz) 11/17/23 56.7 kg (125 lb) 11/01/23 59 kg (130 lb) Ht Readings from Last 1 Encounters: 11/23/23 5' 11 Encounter Summary: ASSESSMENT: Patient Findings Negatives: Patient Reported Falls, Signs/symptoms of thrombosis, Signs/symptoms of bleeding, Laboratory test error suspected, Change in health, Change in alcohol use, Change in activity, Upcoming invasive procedure, Emergency department visit, Upcoming dental procedure, Missed doses, Extra doses, Change in medications, Change in diet/appetite, Hospital admission, Bruising, Other complaints Warfarin taken in the previous 7 days: 37.5 mg INR is supratherapeutic at 3.5 today. There is no clear reason why INR is above the range. Adilene with [facility] called with INR results. She is able to correctly confirm the dose of warfarin, and denies any changes or concerns. INR is above the range again. Will have patient take only 2.5mg today and then continue with 5mg daily. Will recheck INR in 1 week. When INR is checked in 1 week patient will have taken 32.5mg over the next 7 days. PLAN: Will have patient proceed with 32.5mg over the next 7 days. Will check next INR in 1 week unless there are any changes before then. Encouraged patient to contact clinic with any changes. Adilene Bryan RPh,PharmD [facility] Dept: [phone] documented in this [id number] NoteGfr 45 hemoglobin 9 will improve with nutrition and hydration recheck on next visit no change in meds thanks. AUTHENTICATED BY YING QUISPE, ON 11/27/2023 07:17:41[facility] [id number] NoteHPI Here with Hi, discharge summary below reviewed. Here 11/23/2023. Doing physical therapy at home and sn drawing pt/inr every wk at home. For weakness twice wkly following bp at home. Bp today 100/60 sitting and 110/60 standing. OT involved too. Having ct angiogram abdomen 11/2023. 15th is angiogram and the 2nd is brachial index. Tsh/t4 appreciated. [facility] DISCHARGE SUMMARY Scott Obregon Account: [id number] Admitted: 10/09/2023 Discharge Date/Time: 10/23/23 / 8:28 AM Handoff to PCP PCP to address the following Outpt Vasc Surg f/u Smoking cessation Clinical Summary Scott Obregon is a 63 y.o. female with a history of Factor 5 Leiden on warfarin, Chronic Back Pain, Smoker, PVD who presented to [facility] with multiple syncopal episodes, r sided abdominal pain on 10/09/[address] abdomen pelvis without contrast showed very large ruptured infrarenal aortic aneurysm. Pt transferred to [facility] 10/09/23 for advanced surgical evaluation. [facility] was consulted 10/12/23 to assume care upon transfer from the SICU. Ruptured infrarenal abdominal aortic aneurysm: Presented with syncope, CT A/P at OSH with large ruptured intrarenal aotric aneurysm. Dr Guerra of Vasc Surg performed EVAR on 10/10/23. Asa, coumadin ordered. SBP < 160 complicated by severe symptomatic orthostasis; BP meds judiciously titrated. Vasc Surg followed. Acute Blood Loss Anemia: 11/2022 Hgb 12, dropped to 7.2 on presentation. Transfused 4 units of PRBCs during hospitalization. Hgb stable in 8s on dc. TUTU: BL Cr 0.8. Cr 1.8 on presentation. Likely pre-renal in setting of hemorrhagic ischemia. Resolved with IVF and transfusion. Asymptomatic Mild Hyponatremia: Na 128 on presentation Possibly chronic, Na 133.in 12/2022. Improved. Acute hypoxic respiratory failure: Required 1-2 L of oxygen .Resolved. Factor 5 Leiden: follows with Dr. Vigil for hematology. Prescribed coumadin, took herself off it. S/p Lovenox bridge. Pharmacy assisted with Coumadin dosing PVD, Raynaud's disease: Follows with Dr Puckett. Continue outpt f/u. Chronic Back Pain with Possible Opiate Dependence: Takes percocet OP, Hypothyroidism: Per Hx. levothyroxine ordered. Smoker: 1/2 ppd. Refused patch. Motivated to quit. Severe Protein Calorie Malnutrition: Per Hx. Radiation Engineer consulted. Code status: Full Discharge Medications Discharge Medications New Medications Details amLODIPine 10 MG tablet Commonly known as: NORVASC Take 1 (one) tablet (10 mg total) by mouth daily Start: 10/21/23. Quantity: 30 tablet aspirin 81 MG EC tablet Take 1 (one) tablet (81 mg total) by mouth daily Start: 10/21/23. Quantity: 30 tablet atorvastatin 20 MG tablet Commonly known as: LIPITOR Take 1 (one) tablet (20 mg total) by mouth nightly . Quantity: 30 tablet hydrALAZINE 25 MG tablet Commonly known as: APRESOLINE Take 1 (one) tablet (25 mg total) by mouth every 6 (six) hours as needed (SBP > 160) . Quantity: 1 tablet oxyCODONE 5 MG immediate release tablet Commonly known as: ROXICODONE Take 1 (one) tablet (5 mg total) by mouth every 6 (six) hours as needed . Quantity: 1 tablet Medications To Continue Details * levothyroxine 25 MCG tablet Commonly known as: SYNTHROID, LEVOTHROID Take one tablet on Monday and Monday only in addition to 125mcg dose. . Quantity: 8 tablet * levothyroxine 125 MCG tablet Commonly known as: SYNTHROID, LEVOTHROID TAKE 1 TABLET BY MOUTH DAILY Quantity: 90 tablet multivitamin per tablet Commonly known as: THERAGRAN Take 1 (one) tablet by mouth daily . * warfarin 7.5 MG tablet Commonly known as: COUMADIN Take 1 (one) tablet (7.5 mg total) by mouth daily On Monday and Monday . Stopped Medications cyclobenzaprine 10 MG tablet Commonly known as: FLEXERIL oxyCODONE-acetaminophen 5-325 mg per tablet Commonly known as: PERCOCET rosuvastatin 10 MG tablet Commonly known as: CRESTOR Physician(s) Family: Ying Quispe DO, , Address: [address] / [facility] [address] Follow Up: Physicians, [facility] [address] [facility] [address] [place] [address] Follow up You are scheduled for your 1 month follow up appointment with Dr. Kruger on Monday11-16-23 at 8:[address] [address] Follow up You are scheduled for your Renal ultrasound on 11-16-2023 at 9:00 am in [place] Nothing to eat/drink after midnight the night before Edenilson Guerra DO [address] [facility] [address] [place] [address] Follow up in 1 month(s) Follow up in 1 month(s) [place] [address] [place], [place] [address] Ying Quispe DO [address] (more content not included)...[facility]06-27-2024 History of Present illness Narrative* BlomkestYing, DO - 11/23/2023 1:47 PM EDT Images from the original note were not included. HPI Here with Hi, discharge summary below reviewed. Here 11/23/2023. Doing physical therapy at home and sn drawing pt/inr every wk at home. For weakness twice wkly following bp at home. Bp today 100/60sitting and 110/60 standing. OT involved too. Having ct angiogram abdomen 11/2023. 15th is angiogramand the 2nd is brachial index. Tsh/t4 appreciated. [facility] DISCHARGE SUMMARY Scott Obregon Account: [id number] Admitted: 10/09/2023 Discharge Date/Time: 10/23/23 / 8:28 AM Handoff to PCP PCP to address the following Outpt Vasc Surg f/u Smoking cessation Clinical Summary Scott Obregon is a 63 y.o. female with a history of Factor 5 Leiden on warfarin, Chronic Back Pain, Smoker, PVD who presented to [facility] with multiple syncopal episodes, r sided abdominal pain on 10/09/[address] abdomen pelvis without contrast showed very large ruptured infrarenal aortic aneurysm. Pt transferred to [facility] 10/09/23 for advanced surgical evaluation. [facility] was consulted10/12/23 to assume care upon transfer from the SICU. Ruptured infrarenal abdominal aortic aneurysm: Presented with syncope, CT A/P at OSH with large ruptured intrarenal aotric aneurysm. Dr Guerra of Vasc Surg performed EVAR on 10/10/23. Asa, coumadin ordered. SBP < 160 complicated by severe symptomatic orthostasis; BP meds judiciously titrated. VascSurg followed. Acute Blood Loss Anemia: 11/2022 Hgb 12, dropped to 7.2 on presentation. Transfused 4 units of PRBCsduring hospitalization. Hgb stable in 8s on dc. TUTU: BL Cr 0.8. Cr 1.8 on presentation. Likely pre-renal in setting of hemorrhagic ischemia. Resolved with IVF and transfusion. Asymptomatic Mild Hyponatremia: Na 128 on presentation Possibly chronic, Na 133.in 12/2022. Improved. Acute hypoxic respiratory failure: Required 1-2 L of oxygen .Resolved. Factor 5 Leiden: follows with Dr. Vigil for hematology. Prescribed coumadin, took herself off it. S/p Lovenox bridge. Pharmacy assisted with Coumadin dosing PVD, Raynaud's disease: Follows with Dr Puckett. Continue outpt f/u. Chronic Back Pain with Possible Opiate Dependence: Takes percocet OP, Hypothyroidism: Per Hx. levothyroxine ordered. Smoker: /2 ppd. Refused patch. Motivated to quit. Severe Protein Calorie Malnutrition: Per Hx. Radiation Engineer consulted. Code status: Full Discharge Medications Discharge Medications New Medications Details amLODIPine 10 MG tablet Commonly known as: NORVASC Take 1 (one) tablet (10 mg total) by mouth daily Start: 10/21/23. Quantity: 30 tablet aspirin 81 MG EC tablet Take 1 (one) tablet (81 mg total) by mouth daily Start: 10/21/23. Quantity: 30 tablet atorvastatin 20 MG tablet Commonly known as: LIPITOR Take 1 (one) tablet (20 mg total) by mouth nightly . Quantity: 30 tablet hydrALAZINE 25 MG tablet Commonly known as: APRESOLINE Take 1 (one) tablet (25 mg total) by mouth every 6 (six) hours as needed (SBP > 160) . Quantity: 1 tablet oxyCODONE 5 MG immediate release tablet Commonly known as: ROXICODONE Take 1 (one) tablet (5 mg total) by mouth every 6 (six) hours as needed . Quantity: 1 tablet Medications To Continue Details * levothyroxine 25 MCG tablet Commonly known as: SYNTHROID, LEVOTHROID Take one tablet on Monday and Monday only in addition to 125mcg dose. . Quantity: 8 tablet * levothyroxine 125 MCG tablet Commonly known as: SYNTHROID, LEVOTHROID TAKE 1 TABLET BY MOUTH DAILY Quantity: 90 tablet multivitamin per tablet Commonly known as: THERAGRAN Take 1 (one) tablet by mouth daily . * warfarin 7.5 MG tablet Commonly known as: COUMADIN Take 1 (one) tablet (7.5 mg total) by mouth daily On Monday and Monday . Stopped Medications cyclobenzaprine 10 MG tablet Commonly known as: FLEXERIL oxyCODONE-acetaminophen 5-325 mg per tablet Commonly known as: PERCOCET rosuvastatin 10 MG tablet Commonly known as: CRESTOR Physician(s) Family: Ying Quispe DO, , Address: [address] / [facility] [address] Follow Up: Physicians, [facility] [address] [facility] [address] [facility] [address] Follow up You are scheduled for your 1 month follow up appointment with Dr. Kruger on Monday11-16-23 at 8:[address] [address] Follow up You are scheduled for your Renal ultrasound on 11-16-2023 at 9:00 am in [place] Nothing to eat/drink after midnight the night before Edenilson Guerra DO [address] [facility] [address] [facility] [id number] Follow up in 1 month(s) Follow up in 1 month(s) [place] [address] Ying Quispe DO [address] [facility] [address] Follow up Vitals: 11/23/23 1311 11/23/23 1317 BP: 90/60 104/80 Temp: 98.3 F (36.8 C) Pulse: 90 Resp: 16 PT WEIGHT Weight 11/23/2023 1:11 PM 114 lb 12.8 oz 11/17/2023 8:05 AM 125 lb 11/01/2023 12:53 PM 130 lb 10/18/2023 5:20 AM 138 lb 9.6 oz BP Readings from Last 4 Encounters: 11/23/23 104/80 11/22/23 114/74 11/21/23 127/64 11/21/23 121/63 Past Medical History: Diagnosis Date Acute appendicitis with localized peritonitis and gangrene, without perforation or abscess 09/15/2018 Anemia Appendicitis 2019 Arm DVT (deep venous thromboembolism), acute, left (HCC) 05/2022 Disease of thyroid gland Hypothyroidism Hyperlipidemia Hypertension borderline Right hip pain previous PCP said has inflammation had cortisone injection in past w/ no help Past Surgical History: Procedure Laterality Date APPENDECTOMY APPENDECTOMY LAPAROSCOPIC N/A 09/14/2018 Procedure: APPENDECTOMY LAPAROSCOPIC; Surgeon: Татьяна Jenkins MD; Location: Main OR; Service: General Surgery ARTERIAL ANEURYSM REPAIR CV IR INTERVENTIONAL RADIOLOGY N/A 11/16/2022 Procedure: USg Biopsy of Left Axillary Lymph Node; Surgeon: Judd Allan MD; Location: IR LAB; Service: Interventional Radiology REPAIR ANEURYSM ABDOMINAL AORTIC ENDOVASCULAR N/A 10/09/2023 Procedure: Abdominal Aortic Endovascular Aneurysm Repair; Surgeon: Edenilson Guerra DO; Location: [facility] HYBRID OR; Service: Gen-Vascular Social History Socioeconomic History Marital status: Tobacco Use Smoking status: Former Current packs/day: 0.00 Types: Cigarettes Start date: 05/05/1996 Quit date: 10/08/2023 Years since quittin.1 Smokeless tobacco: Never Tobacco comments: I am down to 4 cigerettes a day Vaping Use Vaping status: Never Used Substance and Sexual Activity Alcohol use: Not Currently Comment: Occassionally Drug use: No Sexual activity: Not Currently Partners: Male Social Determinants of Health Financial Resource Strain: Low Risk (11/28/2022) Overall Financial Resource Strain (CARDIA) Difficulty of Paying Living Expenses: Not hard at all Food Insecurity: No Food Insecurity (10/14/2023) Hunger Vital Sign Worried About Running Out of Food in the Last Year: Never true Ran Out of Food in the Last Year: Never true Transportation Needs: No Transportation Needs (10/14/2023) PRAPARE - Transportation Lack of Transportation (Medical): No Lack of Transportation (Non-Medical): No Social Connections: Unknown (05/12/2021) Social Connection and Isolation Panel [NHANES] Frequency of Communication with Friends and Family: Once a week Housing Stability: Low Risk (10/14/2023) Housing Stability Vital Sign Unable to Pay for Housing in the Last Year: No Number of Places Lived in the Last Year: 1 Unstable Housing in the Last Year: No Family History Problem Relation Age of Onset Heart disease Father Hypertension Father Cancer Father colon Diabetes Father Heart disease Sister Diabetes Sister Hypertension Sister Thyroid disease Mother Kidney disease Mother Breast cancer Sister Thyroid disease Sister Current Outpatient Medications Medication Sig Dispense Refill acetaminophen (TYLENOL) 325 MG tablet Take 2 (two) tablets (650 mg total) by mouth every 6 (six) hours as needed for pain . amLODIPine (NORVASC) 10 MG tablet Take 1 (one) tablet (10 mg total) by mouth daily . 30 tablet 0 atorvastatin (LIPITOR) 20 MG tablet Take 1 (one) tablet (20 mg total) by mouth nightly . 30 tablet 0 cloNIDine HCL (CATAPRES) 0.1 MG tablet Take 1 (one) tablet (0.1 mg total) by mouth every 6 (six) hours as needed (HIGH BLOOD PRESSURE) . hydrALAZINE (APRESOLINE) 25 MG tablet Take 1 (one) tablet (25 mg total) by mouth every 6 (six) hours as needed (SBP > 160) . 1 tablet 0 levothyroxine (SYNTHROID, LEVOTHROID) 125 MCG tablet TAKE 1 TABLET BY MOUTH DAILY 90 tablet 3 levothyroxine (SYNTHROID, LEVOTHROID) 25 MCG tablet Take one tablet on Monday and Monday only inaddition to 125mcg dose. . (Patient taking differently: Take one tablet on Monday and Monday only in addition to 125mcg dose. .) 8 tablet 11 lidocaine 4 % patch Place 1 (one) patch on the skin daily Remove & Discard patch within 12 hours or as directed by MD . magnesium hydroxide (MOM) 400 mg/5 mL Susp Take 30 mL (2,400 mg total) by mouth daily as needed (CONSTIPATION) . metoprolol tartrate (LOPRESSOR) 25 MG tablet Take 1 (one) tablet (25 mg total) by mouth 2 (two) times a day . multivitamin (THERAGRAN) per tablet Take 1 (one) tablet by mouth daily . naloxone (NARCAN) 4 mg/actuation [place] Administer 1 (one) spray (4 mg total) into one nostril as needed (OPIOID OVERDOSE) Administer 1 spray into one nostril for known or suspected opioid overdose. Ifpatient worsens or does not respond, may repeat in 2-3 minutes. . oxyCODONE (ROXICODONE) 5 MG immediate release tablet Take 1 (one) tablet (5 mg total) by mouth every 6 (six) hours as needed for pain . senna-docusate (sennosides-docusate sodium) 8.6-50 mg Take 1 (one) tablet by mouth daily . warfarin (COUMADIN) 5 MG tablet Take 1 tablet (5mg) on Monday, Monday, Monday, Monday. Take 1.5 tablets (7.5mg) on Monday, , Monday or as directed by the anticoagulation clinic. . 40 tablet 11 warfarin (COUMADIN) 7.5 MG tablet Take 1 (one) tablet (7.5 mg total) by mouth daily On Monday and Monday . No current facility-administered medications for this visit. PHQ-9 Depression Screening No documentation. Goals None Review of Systems Constitutional: Positive for unexpected weight change. Negative for chills and fever. HENT: Negative for facial swelling and mouth sores. Eyes: Negative for pain and visual disturbance. Respiratory: Negative for cough and shortness of breath. Cardiovascular: Negative for chest pain. Gastrointestinal: Negative for abdominal pain. Endocrine: Negative for polydipsia. Genitourinary: Negative for frequency. Musculoskeletal: Positive for gait problem (using walker). Neurological: Positive for weakness (legs and arms). Psychiatric/Behavioral: Negative. Physical Exam Vitals reviewed. Constitutional: Appearance: She is underweight. HENT: Head: Normocephalic and atraumatic. Cardiovascular: Rate and Rhythm: Normal rate and regular rhythm. Abdominal: General: Abdomen is flat. Bowel sounds are normal. Tenderness: There is generalized abdominal tenderness. Musculoskeletal: Right lower leg: No edema. Left lower leg: No edema. Neurological: Mental Status: She is alert and oriented to person, place, and time. Psychiatric: Attention and Perception: Attention normal. Mood and Affect: Mood normal. Speech: Speech normal. Behavior: Behavior normal. Thought Content: Thought content normal. There are no diagnoses linked to this encounter. Diagnoses and all orders for this visit: Orthostatic hypotension boost tid, - Comprehensive Metabolic Panel; Future - CBC and Differential; Future - amLODIPine (NORVASC) 5 MG tablet; Take 1 (one) tablet (5 mg total) by mouth daily . General weakness cont pt/sn/ot for now at home. . For any new medications prescribed today, patient was educated about indications for the medication, how to take the medication and potential side effects of the medications. documented in this [id number] NoteNew patient - podiatry wound clinic VISIT Abigail Estrella CNP Patient Name: Scott Obregon. . Date of : 1960, 63 y.o.. Gender: female. Author: Abigail Estrella CNP Subjective: Patient is a 63-year-old female coming to wound clinic being referred by Dr. Kruger vascular surgeon at [facility] to the wound clinic for left foot necrotic ulcers. Patient sustained and underwent repair for triple abdominal aneurysm in September. She presented to [place] ED and was life flighted to [facility]. She had difficulty following up with her surgical team due to distance and she was referred to be seen by vascular surgery team here for follow-up. Patient has pending appointment with Dr. Rey December 25. Surgery at [facility] was completed by Dr. Guerra and Dr. Kruger. Patient states the left foot became ischemic about 4 weeks after her surgery. She did complete rehab and is now recuperating at home. Denies any pedal injury or trauma, no falling or stubbing of toes. Ulcers are dry without drainage, odor, purulence or bleeding. She does report resting pain especially in the evenings although this is not constant. At home she often just wears socks. She is somewhat annoyed with her situation, initially upset over what she perceives as being pushed around from 1 provider to the other. Patient is also upset that the aneurysm was not caught sooner. She is receptive to education and emotional support. Denies chills or fevers, no nausea/vomiting/diarrhea. No other constitutional symptoms at this time. Review of Systems: Pertinent positives and negatives as mentioned above, otherwise full review of systems is negative unless mentioned below: Patient currently denies Nausea/Vomiting/Fever/Chills/Shortness of Breath/Chest Pain. Physical Examination: BP 114/74 Pulse 89 Temp 98.5 degrees F (36.9 degrees C) Resp 16 SpO2 93% General Appearance: Alert, cooperative, no distress, appears stated age. Podiatric Exam Vascular: DP and PT pulses significantly diminished on the left. Capillary refill time is less than 3 seconds to distal digits. Skin temperature is warm to cool from proximal tibial tuberosity to distal digit. No pedal edema Neurological: Gross sensation is intact. Protective sensation is intact. Babinski's is normal. Dermatologic: Left foot with dry ischemic ulcer to great toe distal tuft and lateral fifth toe. Ischemic, petechial rash and discoloration to plantar and dorsal surface as well. Right foot slightly discolored but less so than the left with no ulcerations Musculoskeletal: Compartments soft and compressible. No calf pain of fullness. Muscle strength 5/5 Wound 11/22/23 Great Toe Left (Active) Wound Image 11/22/23 1405 Wound Length (cm) 0.6 cm 11/22/23 1405 Wound Width (cm) 2 cm 11/22/23 1405 Wound Surface Area (cm^2) 1.2 cm^2 11/22/23 1405 Area % Change 0 11/22/23 1405 Wound Progress Initial exam 11/22/23 1405 Drainage Amount None 11/22/23 1405 Odor None 11/22/23 1405 Wound Bed Characteristics Dry;Black 11/22/23 1405 Zuleima-wound Assessment Cool 11/22/23 1405 Cleansed Soap and water 11/22/23 1405 Assessment: Left foot and toe ischemia Peripheral vascular disease Tobacco abuse Recent AAA aneurysm repair Plan: Patient was seen and evaluated. Discussed all clinical findings Wounds are ischemic and vascular in nature. No indication for wound culture and certainly no indication for debridement Patient was given Betadine, to apply only if ulcerations become wet. Educated on signs and symptoms that would require her presenting to the ED Encouraged to protect from injury with dry dressing, avoid going barefoot and keep foot warm Continue medical management as prescribed until she can be seen by Dr. Rey 12/25 ABIs ordered (in communication with Dr. Kruger he did order follow-up CTA to be completed here in [place]) Continue working on tobacco cessation. Patient states she has quit smoking but cigarettes were visible in her purse I will follow-up with the patient once PAL results are available. Patient has office phone number and address available, call immediately if there are any acute changes to the left foot AUTHENTICATED BY ABIGAIL ESTRELLA, ON 11/23/2023 07:01:[address] [place] [address] 11-22-2023 History of Present illness Narrative* Abigail Estrella CNP - 11/22/2023 3:06 PM EDT Images from the original note were not included. New patient - podiatry wound clinic VISIT Abigail Estrella CNP Patient Name: Scott Obregon. . Date of : 1960, 63 y.o.. Gender: female. Author: Abigail Estrella CNP Subjective: Patient is a 63-year-old female coming to wound clinic being referred by Dr. Kruger vascular surgeon at [facility] to the wound clinic for left foot necrotic ulcers. Patient sustained and underwent repair for triple abdominal aneurysm in September. She presented to [place] ED and was life flighted to [facility]. She had difficulty following up with her surgical team due to distance and she was referred to be seen by vascular surgery team here for follow-up. Patient has pending appointment with Dr. Rey December 25. Surgery at [facility] was completed by Dr. Guerra and Dr. Kruger. Patient states the left foot became ischemic about 4 weeks after her surgery. She did complete rehab and is now recuperating at home. Denies any pedal injury or trauma, no falling or stubbing of toes. Ulcers are dry without drainage, odor, purulence or bleeding. She does report resting pain especially in the evenings although this is not constant. At home she often just wears socks. She is somewhat annoyed with her situation, initially upset over what she perceives as being pushed around from 1 provider to the other. Patient is also upset that the aneurysm was not caught sooner. She is receptive to education and emotional support. Denies chills or fevers, no nausea/vomiting/diarrhea. No other constitutional symptoms at this time. Review of Systems: Pertinent positives and negatives as mentioned above, otherwise full review of systems is negative unless mentioned below: Patient currently denies Nausea/Vomiting/Fever/Chills/Shortness of Breath/Chest Pain. Physical Examination: BP 114/74 Pulse 89 Temp 98.5 F (36.9 C) Resp 16 SpO2 93% General Appearance: Alert, cooperative, no distress, appears stated age. Podiatric Exam Vascular: DP and PT pulses significantly diminished on the left. Capillary refill time is less than3 seconds to distal digits. Skin temperature is warm to cool from proximal tibial tuberosity to distal digit. No pedal edema Neurological: Gross sensation is intact. Protective sensation is intact. Babinski's is normal. Dermatologic: Left foot with dry ischemic ulcer to great toe distal tuft and lateral fifth toe. Ischemic, petechial rash and discoloration to plantar and dorsal surface as well. Right foot slightly discolored but less so than the left with no ulcerations Musculoskeletal: Compartments soft and compressible. No calf pain of fullness. Muscle strength 5/5 Wound 11/22/23 Great Toe Left (Active) Wound Image 11/22/23 1405 Wound Length (cm) 0.6 cm 11/22/23 1405 Wound Width (cm) 2 cm 11/22/23 1405 Wound Surface Area (cm^2) 1.2 cm^2 11/22/23 1405 Area % Change 0 11/22/23 1405 Wound Progress Initial exam 11/22/23 1405 Drainage Amount None 11/22/23 1405 Odor None 11/22/23 1405 Wound Bed Characteristics Dry;Black 11/22/23 1405 Zuleima-wound Assessment Cool 11/22/23 1405 Cleansed Soap and water 11/22/23 1405 Assessment: Left foot and toe ischemia Peripheral vascular disease Tobacco abuse Recent AAA aneurysm repair Plan: Patient was seen and evaluated. Discussed all clinical findings Wounds are ischemic and vascular in nature. No indication for wound culture and certainly no indication for debridement Patient was given Betadine, to apply only if ulcerations become wet. Educated on signs and symptomsthat would require her presenting to the ED Encouraged to protect from injury with dry dressing, avoid going barefoot and keep foot warm Continue medical management as prescribed until she can be seen by Dr. Rey 12/25 ABIs ordered (in communication with Dr. Kruger he did order follow-up CTA to be completed here [facility]) Continue working on tobacco cessation. Patient states she has quit smoking but cigarettes were visible in her purse I will follow-up with the patient once PAL results are available. Patient has office phone number and address available, call immediately if there are any acute changes to the left foot documented in this [id number] Instructions* Patient Instructions* Makenzie Abrams RN - 11/22/2023 2:34 PM EDT [place] left great toe and fifth toe ulcers with Betadine, secure with Kerlix. At home continue painting toes if they become wet. Protect from injury, keep foot warm documented in this [id number] History of Present illness Narrative* Michelle Littlejohn RPh,PharmD - 11/21/2023 1:33 PM EDT Anticoagulation Progress Note Date of Visit: November 21, 2023 Patient Name: Scott Obregon : 1960 Age: 63 y.o. Scott Obregon Had her INR checked and result called in by her home health nurse, Rolan Head. Anticoagulation Summary As of 11/21/2023 INR goal: 2.0-3.0 TTR: 86.2% (10.1 mo) INR used for dosin.5 (11/21/2023) Warfarin maintenance plan: 7.5 mg (5 mg x 1.5) every Sat; 5 mg (5 mg x 1) all other days Weekly warfarin total: 37.5 mg Plan last modified: Adilene Bryan, [facility],PharmD (11/14/2023) Next INR check: 11/29/2023 Priority: High Target end date: Indefinite Indications Acute deep vein thrombosis (DVT) of axillary vein of left upper extremity (HCC) [I82.A12] Lab Results Component Value Date WBC 12.80 (H) 10/20/2023 HGB 7.4 (L) 10/20/2023 HCT 23.6 (L) 10/20/2023 MCV 87.4 10/20/2023 EXTMCV 86 11/19/2021 PLT 489 (H) 10/20/2023 RBC 2.70 (L) 10/20/2023 Lab Results Component Value Date CREATININE 0.84 10/20/2023 CREATININE 1.02 10/21/2021 Wt Readings from Last 3 Encounters: 11/17/23 56.7 kg (125 lb) 11/01/23 59 kg (130 lb) 10/18/23 62.9 kg (138 lb 9.6 oz) Ht Readings from Last 1 Encounters: 11/17/23 5' 11 Encounter Summary: ASSESSMENT: Patient Findings Negatives: Patient Reported Falls, Signs/symptoms of thrombosis, Signs/symptoms of bleeding, Laboratory test error suspected, Change in health, Change in alcohol use, Change in activity, Upcoming invasive procedure, Emergency department visit, Upcoming dental procedure, Missed doses, Extra doses, Change in medications, Change in diet/appetite, Hospital admission, Bruising, Other complaints Warfarin taken in the previous 7 days: 37.5 mg INR is therapeutic today at 2.5. Adilene confirms the correct dose with patient and says she deniesany changes or concerns. INR back in range, so will continue with current dose and recheck in 1 week. PLAN: Will continue weekly warfarin dose of 37.5 mg/week. Will check next INR in 1 week unless there are any changes before then. Encouraged patient to contact clinic with any changes. Michelle Littlejohn RPh,PharmD [facility] Dept: [phone] documented in this [id number] Telephone encounter Note* Telephone Encounter - La Nena Infante LPN - 11/20/2023 9:31 AM EDT Scott is requesting a refill for Requested Prescriptions Pending Prescriptions Disp Refills amLODIPine (NORVASC) 10 MG tablet 30 tablet 0 Sig: Take 1 (one) tablet (10 mg total) by mouth daily . Last refill: 10/21/23 Last appt: 04/24/23 Upcoming appt (when is it due or is it scheduled): 11/23/23 Please send to [facility] [id number] [place], [place] [address] [place] [address] [facility] [id number] Follow up: Refill pending for review without additional follow up based on information above. [id number] Miscellaneous Notes* Telephone Encounter - La Nena Infante LPN - 11/20/2023 9:31 AM EDT Scott is requesting a refill for Requested Prescriptions Pending Prescriptions Disp Refills amLODIPine (NORVASC) 10 MG tablet 30 tablet 0 Sig: Take 1 (one) tablet (10 mg total) by mouth daily . Last refill: 10/21/23 Last appt: 04/24/23 Upcoming appt (when is it due or is it scheduled): 11/23/23 Please send to [facility] [id number] - [place], [place] - [address] [facility] [address] [facility] [address] Follow up: Refill pending for review without additional follow up based on information above. documented in this [id number] Evaluation + Plan note* Assessment & Plan Note - Tylor Kruger MD - 11/17/2023 8:40 AM EDT Associated Problem(s): Ruptured abdominal aortic aneurysm (AAA) (HCC) The patient has done relatively well since her ruptured aneurysm. 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 From a revascularization standpoint with respect to the occluded anterior tibial artery, I do not believe that there will be much we can do. I would recommend she continue aspirin and warfarin. We placed a referral for her to be seen in the [facility] center, and I have also placed a referral for her to see Dr. Sarath Rey in [place] as it is difficult for them to get to [place] for routine follow-up. We will arrange for her CTA to be performed up there as well. I did inform the patient that she is at risk for losing her toes, but she said that is acceptable given the fact that she recognizes she is kosta to be alive given the high mortality rate with ruptured AAA. The patient no longer smokes and we continue to discuss the importance of that. Her blood pressure was a little bit elevated today, but she is on good therapy and I would recommend her systolic be less than 130. [id number] Miscellaneous Notes* Assessment & Plan Note - Tylor Kruger MD - 11/17/2023 8:40 AM EDTAssociated Problem(s): Ruptured abdominal aortic aneurysm (AAA) (HCC) The patient has done relatively well since her ruptured aneurysm. 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 From a revascularization standpoint with respect to the occluded anterior tibial artery, I do not believe that there will be much we can do. I would recommend she continue aspirin and warfarin. We placed a referral for her to be seen in the [place] wound center, and I have also placed a referral for her to see Dr. Sarath Rey in [place] as it is difficult for them to get to [place] for routine follow-up. We will arrange for her CTA to be performed up there as well. I did inform the patient that she is at risk for losing her toes, but she said that is acceptable given the fact that she recognizes she is kosta to be alive given the high mortality rate with ruptured AAA. The patient no longer smokes and we continue to discuss the importance of that. Her blood pressure was a little bit elevated today, but she is on good therapy and I would recommend her systolic be less than 130. documented in this [id number] [facility] [address] [place] [address], [address] [place] [address] Scott Obregon is a 63 y.o.female who presents for New Patient evaluation of follow-up after ruptured abdominal aortic aneurysm on 11/17/[address]. [address]. Guerra with the stent grafting and placement of a single stent graft in the left renal artery and setting of Ms. Obregon who presented in hypovolemic shock from a ruptured AAA. The ruptured AAA occurred a little more than a month ago. 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 The patient states that she has not followed up with our vascular surgery team here. Since discharge, she is also noted discoloration of several toes involving left foot, presumably from atheroembolic debris. She is on warfarin, Norvasc, aspirin and Lipitor. She is currently participating in cardiac rehab. ASSESSMENT & PLAN My assessment and plan is as follows: Ruptured abdominal aortic aneurysm (AAA) (HCC) The patient has done relatively well since her ruptured aneurysm. 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 From a revascularization standpoint with respect to the occluded anterior tibial artery, I do not believe that there will be much we can do. I would recommend she continue aspirin and warfarin. We placed a referral for her to be seen in the [place] wound center, and I have also placed a referral for her to see Dr. Sarath Rey in [place] as it is difficult for them to get to [place] for routine follow-up. We will arrange for her CTA to be performed up there as well. I did inform the patient that she is at risk for losing her toes, but she said that is acceptable given the fact that she recognizes she is kosta to be alive given the high mortality rate with ruptured AAA. The patient no longer smokes and we continue to discuss the importance of that. Her blood pressure was a little bit elevated today, but she is on good therapy and I would recommend her systolic be less than 130. REVIEW OF SYSTEMS As per ALEKSANDRA GONGORA, all other pertinent ROS (positive or negative) was addressed in the HPI Past Medical History: Diagnosis Date Acute appendicitis with localized peritonitis and gangrene, without perforation or abscess 09/15/2018 Anemia Appendicitis 2019 Arm DVT (deep venous thromboembolism), acute, left (HCC) 05/2022 Disease of thyroid gland Hypothyroidism Hyperlipidemia Hypertension borderline Right hip pain previous PCP said has inflammation had cortisone injection in past w/ no help Past Surgical History: Procedure Laterality Date APPENDECTOMY LAPAROSCOPIC N/A 09/14/2018 Procedure: APPENDECTOMY LAPAROSCOPIC; Surgeon: Татьяна Jenkins MD; Location: Main OR; Service: General Surgery ARTERIAL ANEURYSM REPAIR CV IR INTERVENTIONAL RADIOLOGY N/A 11/16/2022 Procedure: USg Biopsy of Left Axillary Lymph Node; Surgeon: Judd Allan MD; Location: IR LAB; Service: Interventional Radiology REPAIR ANEURYSM ABDOMINAL AORTIC ENDOVASCULAR N/A 10/09/2023 Procedure: Abdominal Aortic Endovascular Aneurysm Repair; Surgeon: Edenilson Guerra DO; Location: [facility]; Service: Gen-Vascular Family History Problem Relation Age of Onset Heart disease Father Hypertension Father Cancer Father colon Diabetes Father Heart disease Sister Diabetes Sister Hypertension Sister Thyroid disease Mother Kidney disease Mother Breast cancer Sister Thyroid disease Sister Social History Tobacco Use Smoking status: Former Packs/day: 0.00 Years: 15.00 Additional pack years: 0.00 Total pack years: 0.00 Types: Cigarettes Start date: 05/05/1996 Quit date: 10/08/2023 Years since quittin.1 Smokeless tobacco: Never Tobacco comments: I am down to 4 cigerettes a day Vaping Use Vaping Use: Never used Substance Use Topics Alcohol use: Not Currently Comment: Occassionally Drug use: No Current Outpatient Medications Medication Sig Dispense Refill acetaminophen (TYLENOL) 325 MG tablet Take 2 (two) tablets (650 mg total) by mouth every 6 (six) hours as needed for pain . amLODIPine (NORVASC) 10 MG tablet Take 1 (one) tablet (10 mg total) by mouth daily Start: 10/21/23. (Patient taking differently: Take 0.5 (one-half) tablet (5 mg total) by mouth daily .) 30 tablet 0 aspirin 81 MG EC tablet Take 1 (one) tablet (81 mg total) by mouth daily Start: 10/21/23. 30 tablet 0 atorvastatin (LIPITOR) 20 MG tablet Take 1 (one) tablet (20 mg total) by mouth nightly . 30 tablet 0 cloNIDine HCL (CATAPRES) 0.1 MG tablet Take 1 (one) tablet (0.1 mg total) by mouth every 6 (si (more content not included)...[facility]06-21-2024 History of Present illness Narrative* Tylor Kruger MD - 11/17/2023 8:17 AM EDT Images from the original note were not included. [facility] [address], [address] [place] [address] Scott Obregon is a 63 y.o.female who presents for New Patient evaluation of follow-up after ruptured abdominal aortic aneurysm on 11/17/[address]. [address] Guerra with the stent grafting and placement of a single stent graft in the left renal artery and setting of Ms. Obregon who presented in hypovolemic shock from a ruptured AAA. The ruptured AAA occurred a little more than a month ago. 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 The patient states that she has not followed up with our vascular surgery team here. Since discharge, she is also noted discoloration of several toes involving left foot, presumably from atheroembolic debris. She is on warfarin, Norvasc, aspirin and Lipitor. She is currently participating in cardiac rehab. ASSESSMENT & PLAN My assessment and plan is as follows: Ruptured abdominal aortic aneurysm (AAA) (HCC) The patient has done relatively well since her ruptured aneurysm. 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 From a revascularization standpoint with respect to the occluded anterior tibial artery, I do not believe that there will be much we can do. I would recommend she continue aspirin and warfarin. We placed a referral for her to be seen in the [facility] wound center, and I have also placed a referral for her to see Dr. Sarath Rey in [place] as it is difficult for them to get to [place] for routine follow-up. We will arrange for her CTA to be performed up there as well. I did inform the patient that she is at risk for losing her toes, but she said that is acceptable given the fact that she recognizes she is kosta to be alive given the high mortality rate with ruptured AAA. The patient no longer smokes and we continue to discuss the importance of that. Her blood pressure was a little bit elevated today, but she is on good therapy and I would recommend her systolic be less than 130. REVIEW OF SYSTEMS As per MA ROS, all other pertinent ROS (positive or negative) was addressed in the HPI Past Medical History: Diagnosis Date Acute appendicitis with localized peritonitis and gangrene, without perforation or abscess 09/15/2018 Anemia Appendicitis 2018 Arm DVT (deep venous thromboembolism), acute, left (HCC) 05/2022 Disease of thyroid gland Hypothyroidism Hyperlipidemia Hypertension borderline Right hip pain previous PCP said has inflammation had cortisone injection in past w/ no help Past Surgical History: Procedure Laterality Date APPENDECTOMY LAPAROSCOPIC N/A 09/14/2018 Procedure: APPENDECTOMY LAPAROSCOPIC; Surgeon: Татьяна Jenkins MD; Location: Main OR; Service: General Surgery ARTERIAL ANEURYSM REPAIR CV IR INTERVENTIONAL RADIOLOGY N/A 11/16/2022 Procedure: USg Biopsy of Left Axillary Lymph Node; Surgeon: Judd Allan MD; Location: IR LAB; Service: Interventional Radiology REPAIR ANEURYSM ABDOMINAL AORTIC ENDOVASCULAR N/A 10/09/2023 Procedure: Abdominal Aortic Endovascular Aneurysm Repair; Surgeon: Edenilson Guerra DO; Location: [facility]; Service: Gen-Vascular Family History Problem Relation Age of Onset Heart disease Father Hypertension Father Cancer Father colon Diabetes Father Heart disease Sister Diabetes Sister Hypertension Sister Thyroid disease Mother Kidney disease Mother Breast cancer Sister Thyroid disease Sister Social History Tobacco Use Smoking status: Former Packs/day: 0.00 Years: 15.00 Additional pack years: 0.00 Total pack years: 0.00 Types: Cigarettes Start date: 05/05/1996 Quit date: 10/08/2023 Years since quittin.1 Smokeless tobacco: Never Tobacco comments: I am down to 4 cigerettes a day Vaping Use Vaping Use: Never used Substance Use Topics Alcohol use: Not Currently Comment: Occassionally Drug use: No Current Outpatient Medications Medication Sig Dispense Refill acetaminophen (TYLENOL) 325 MG tablet Take 2 (two) tablets (650 mg total) by mouth every 6 (six) hours as needed for pain . amLODIPine (NORVASC) 10 MG tablet Take 1 (one) tablet (10 mg total) by mouth daily Start: 10/21/23.(Patient taking differently: Take 0.5 (one-half) tablet (5 mg total) by mouth daily .) 30 tablet 0 aspirin 81 MG EC tablet Take 1 (one) tablet (81 mg total) by mouth daily Start: 10/21/23. 30 tablet0 atorvastatin (LIPITOR) 20 MG tablet Take 1 (one) tablet (20 mg total) by mouth nightly . 30 tablet 0 cloNIDine HCL (CATAPRES) 0.1 MG tablet Take 1 (one) tablet (0.1 mg total) by mouth every 6 (six) hours as needed (HIGH BLOOD PRESSURE) . hydrALAZINE (APRESOLINE) 25 MG tablet Take 1 (one) tablet (25 mg total) by mouth every 6 (six) hours as needed (SBP > 160) . 1 tablet 0 levothyroxine (SYNTHROID, LEVOTHROID) 125 MCG tablet TAKE 1 TABLET BY MOUTH DAILY 90 tablet 3 levothyroxine (SYNTHROID, LEVOTHROID) 25 MCG tablet Take one tablet on Monday and Monday only inaddition to 125mcg dose. . (Patient taking differently: Take one tablet on Monday and Monday only in addition to 125mcg dose. .) 8 tablet 11 lidocaine 4 % patch Place 1 (one) patch on the skin daily Remove & Discard patch within 12 hours or as directed by MD . magnesium hydroxide (MOM) 400 mg/5 mL Susp Take 30 mL (2,400 mg total) by mouth daily as needed (CONSTIPATION) . metoprolol tartrate (LOPRESSOR) 25 MG tablet Take 1 (one) tablet (25 mg total) by mouth 2 (two) times a day . multivitamin (THERAGRAN) per tablet Take 1 (one) tablet by mouth daily . naloxone (NARCAN) 4 mg/actuation [place] Administer 1 (one) spray (4 mg total) into one nostril as needed (OPIOID OVERDOSE) Administer 1 spray into one nostril for known or suspected opioid overdose. Ifpatient worsens or does not respond, may repeat in 2-3 minutes. . senna-docusate (sennosides-docusate sodium) 8.6-50 mg Take 1 (one) tablet by mouth daily . warfarin (COUMADIN) 5 MG tablet Take 1 tablet (5mg) on Monday, Monday, Monday, Monday. Take 1.5 tablets (7.5mg) on Monday, , Monday or as directed by the anticoagulation clinic. . 40 tablet 11 warfarin (COUMADIN) 7.5 MG tablet Take 1 (one) tablet (7.5 mg total) by mouth daily On Monday and Monday . oxyCODONE (ROXICODONE) 5 MG immediate release tablet Take 1 (one) tablet (5 mg total) by mouth every 6 (six) hours as needed for pain . No current facility-administered medications for this visit. Allergies Allergen Reactions Iodine And Iodide Containing Products Rash and GI Intolerance Seafood, Vomiting PHYSICAL EXAMINATION Vitals: Vitals: 11/17/23 0805 11/17/23 0807 BP: (!) 144/78 (!) 145/81 BP Location: Right arm Left arm Patient Position: Sitting Sitting BP Cuff Size: Youth Youth Pulse: 63 65 Weight: 56.7 kg (125 lb) Height: 5' 11 Physical Exam Constitutional: Patient is oriented to person, place, and time, and appears well-developed. Head: Normocephalic. Eyes: Pupils are equal, round, and reactive to light. Neck: Normal range of motion. Cardiovascular: Normal rate, regular rhythm and normal heart sounds. Pulmonary/Chest: Effort normal and breath sounds normal. Abdominal: Soft. Musculoskeletal: Normal range of motion. Neurological: Patient is alert and oriented to person, place, and time. Skin: Skin is warm and dry. She has palpable bilateral popliteal pulses, she there is a triphasic signal over the left posterior tibial artery, absent signal over the dorsalis pedis artery. All 5 digits have evidence of cyanosis and mild edema there is also dry gangrene involving digits 1and 5 Results for orders placed during the hospital encounter of 10/09/23 ECG 12- Lead Narrative Table formatting from the original result was not included. ED PROVIDER NOTE [facility] EMERGENCY DEPARTMENT NAME: Scott Obregon AGE: 63 y.o. : 1960 VISIT DATE: 10/09/2023 CSN: [id number] PCP: Ying Quispe DO Chief Complaint Patient presents with Syncope Pt arrives to ER today with complaints of multiple syncopal episodes happening spontaneously while walking or standing up from sitting position. Pt reports multiple symptom complaints over the last 1.5 years and arrives with jaundice skin with no hx of reported liver problems. Pt arrives reporting right hip pain that has been ongoing. Denied any injuries. Denied fever, chest pain or shortness of breath or diarrhea or abdominal pain. Past Medical History: Diagnosis Date Acute appendicitis with localized peritonitis and gangrene, without perforation or abscess 09/15/2018 Anemia Appendicitis 2019 Arm DVT (deep venous thromboembolism), acute, left (HCC) 05/2022 Disease of thyroid gland Hypothyroidism Hyperlipidemia Hypertension borderline Right hip pain previous PCP said has inflammation had cortisone injection in past w/ no help Past Surgical History: Procedure Laterality Date APPENDECTOMY APPENDECTOMY LAPAROSCOPIC N/A 09/14/2018 Procedure: APPENDECTOMY LAPAROSCOPIC; Surgeon: Татьяна Jenkins MD; Location: Main OR; Service: General Surgery CV IR INTERVENTIONAL RADIOLOGY N/A 11/16/2022 Procedure: USg Biopsy of Left Axillary Lymph Node; Surgeon: Judd Allan MD; Location: IR LAB; Service: Interventional Radiology Family History Problem Relation Age of Onset Heart disease Father Hypertension Father Cancer Father colon Diabetes Father Heart disease Sister Diabetes Sister Hypertension Sister Thyroid disease Mother Kidney disease Mother Breast cancer Sister Thyroid disease Sister Social History Socioeconomic History Marital status: Tobacco Use Smoking status: Every Day Packs/day: 0.50 Years: 20.00 Additional pack years: 0.00 Total pack years: 10.00 Types: Cigarettes Start date: 05/05/1996 Smokeless tobacco: Never Tobacco comments: I am down to 4 cigerettes a day Vaping Use Vaping Use: Never used Substance and Sexual Activity Alcohol use: Not Currently Comment: Occassionally Drug use: No Sexual activity: Not Currently Partners: Male Social Determinants of Health Financial Resource Strain: Low Risk (11/28/2022) Overall Financial Resource Strain (CARDIA) Difficulty of Paying Living Expenses: Not hard at all Food Insecurity: No Food Insecurity (11/28/2022) Hunger Vital Sign Worried About Running Out of Food in the Last Year: Never true Ran Out of Food in the Last Year: Never true Transportation Needs: No Transportation Needs (11/28/2022) PRAPARE - Transportation Lack of Transportation (Medical): No Lack of Transportation (Non-Medical): No Social Connections: Unknown (05/12/2021) Social Connection and Isolation Panel [NHANES] Frequency of Communication with Friends and Family: Once a week Housing Stability: Unknown (05/12/2021) Housing Stability Vital Sign Unable to Pay for Housing in the Last Year: No Previous Medications Medication Sig cyclobenzaprine (FLEXERIL) 10 MG tablet Take 1 (one) tablet (10 mg total) by mouth 3 (three) times a day as needed for muscle spasms . multivitamin (THERAGRAN) per tablet Take 1 (one) tablet by mouth daily . oxyCODONE-acetaminophen (PERCOCET) 5-325 mg per tablet Take 1 tablet 1 hour before MRI Scan . rosuvastatin (CRESTOR) 10 MG tablet Take 1 (one) tablet (10 mg total) by mouth daily . levothyroxine (SYNTHROID, LEVOTHROID) 125 MCG tablet TAKE 1 TABLET BY MOUTH DAILY levothyroxine (SYNTHROID, LEVOTHROID) 25 MCG tablet Take one tablet on Monday and Monday only inaddition to 125mcg dose. . (Patient taking differently: Take one tablet on Monday and Monday only in addition to 125mcg dose. .) warfarin (COUMADIN) 5 MG tablet Take 1 tablet (5mg) on Monday, Monday, Monday, Monday. Take 1.5 tablets (7.5mg) on Monday, , Monday or as directed by the anticoagulation clinic. . (Patient not taking: Reported on 09/26/2023 .) warfarin (COUMADIN) 7.5 MG tablet Take 1 (one) tablet (7.5 mg total) by mouth daily On Monday and Monday . Allergies Allergen Reactions Iodine And Iodide Containing Products Rash and GI Intolerance Seafood, Vomiting Review of Systems Constitutional: Negative for chills and fever. HENT: Negative for congestion, ear pain, rhinorrhea and sore throat. Eyes: Negative for pain, discharge, redness and visual disturbance. Respiratory: Negative for cough, shortness of breath and wheezing. Cardiovascular: Negative for chest pain and palpitations. Gastrointestinal: Negative for abdominal distention, abdominal pain, constipation, diarrhea and vomiting. Genitourinary: Negative for dysuria, frequency and urgency. Musculoskeletal: Negative for back pain. Skin: Negative for rash. Neurological: Positive for syncope and weakness. Negative for tremors, seizures, facial asymmetry, speech difficulty and headaches. Patient Vitals for the past 24 hrs: BP Temp Temp src Pulse Resp SpO2 Height Weight 10/09/232044 (!) 88/64 -- -- (!) 102 17 -- -- -- 10/09/232035 -- -- -- -- (!) 22 -- -- -- 10/09/232032 103/76 97.6 F (36.4 C) Temporal (!) 101 (!) 22 99 % -- -- 10/09/232005 (!) 84/62 -- -- (!) 106 18 98 % -- -- 10/09/23 1930 108/75 -- -- (!) 103 18 99 % -- -- 10/09/23 1834 -- -- -- -- (!) 24 -- -- -- 10/09/23 1811 101/82 -- -- (!) 102 (!) 21 -- -- -- 10/09/23 1612 113/80 97.5 F (36.4 C) Oral 97 14 95 % 5' 11 54.4 kg (120 lb) Physical Exam Constitutional: General: She is not in acute distress. HENT: Head: Normocephalic and atraumatic. Right Ear: Tympanic membrane normal. Left Ear: Tympanic membrane normal. Nose: Nose normal. Mouth/Throat: Mouth: Mucous membranes are dry. Eyes: General: No scleral icterus. Right eye: No discharge. Left eye: No discharge. Extraocular Movements: Extraocular movements intact. Conjunctiva/sclera: Conjunctivae normal. Pupils: Pupils are equal, round, and reactive to light. Neck: Vascular: No carotid bruit. Cardiovascular: Rate and Rhythm: Normal rate and regular rhythm. Heart sounds: Normal heart sounds. No murmur heard. Musculoskeletal: General: No deformity. Normal range of motion. Cervical back: Normal range of motion and neck supple. No rigidity or tenderness. Right lower leg: No edema. Left lower leg: No edema. Pulmonary: Effort: Pulmonary effort is normal. No respiratory distress. Breath sounds: Normal breath sounds. No stridor. No wheezing, rhonchi or rales. Chest: Chest wall: No tenderness. Abdominal: General: Abdomen is flat. Bowel sounds are normal. There is no distension. Palpations: Abdomen is soft. Tenderness: There is no abdominal tenderness. There is no right CVA tenderness, left CVA tenderness, guarding or rebound. Lymphadenopathy: Cervical: No cervical adenopathy. Skin: General: Skin is warm and dry. Capillary Refill: Capillary refill takes less than 2 seconds. Findings: No rash. Neurological: General: No focal deficit present. Mental Status: She is alert and oriented to person, place, and time. Cranial Nerves: No cranial nerve deficit. . Laboratory & Radiographic Imaging (if done): Results for orders placed or performed during the hospital encounter of 10/09/23 COVID-19/Influenza A,B Molecular Specimen: Nasopharyngeal; Swab Result Value Ref Range Influenza A Not Detected Not Detected Influenza B Not Detected Not Detected SARS-CoV-2 Not Detected Not Detected BMP Result Value Ref Range Sodium 128 (L) 135 - 145 mmol/L Potassium 4.1 3.5 - 5.1 mmol/L Chloride 95 (L) 98 - 108 mmol/L Bicarbonate 23 21 - 32 mmol/L Anion Gap 14 10 - 20 mmol/L Glucose 131 (H) 65 - 99 mg/dL BUN 46 (H) 8 - 25 mg/dL Creatinine 1.80 (H) 0.60 - 1.10 mg/dL eGFR 32 (L) >=60 mL/min/1.73 m2 BUN/Creatinine Ratio 25.6 (H) 10.0 - 20.0 Calcium 8.6 8.4 - 10.2 mg/dL Hepatic Function Panel (LFT) Result Value Ref Range Total Protein 7.2 6.0 - 8.0 g/dL Albumin 2.3 (L) 3.2 - 5.2 g/dL Total Bilirubin 0.6 0.0 - 1.3 mg/dL Bilirubin, Direct 0.3 0.0 - 0.4 mg/dL Alkaline Phosphatase 70 40 - 150 U/L AST 55 (H) 0-35 U/L U/L ALT 46 14 - 65 U/L Troponin Result Value Ref Range Troponin I 69 (CH) <=59 ng/L Troponin I Interpretation Possible acute cardiac injury. T4, Free Result Value Ref Range T4, Free 1.4 0.7 - 1.7 ng/dL TSH Result Value Ref Range TSH 8.26 (H) 0.27 - 4.20 mcIU/mL APTT Result Value Ref Range APTT 36 (H) 23 - 34 seconds PT/INR Result Value Ref Range Protime (PT) 16.3 (H) 11.8 - 14.3 seconds INR 1.3 (H) 0.8 - 1.1 ECG 12- Lead Result Value Ref Range Ventricular Rate 98 BPM Atrial Rate 98 BPM P-R Interval 124 ms QRS Duration 80 ms Q-T Interval 352 ms QTC Calculation (Bezet) 449 ms P [place] 55 degrees R [place] 55 degrees T [place] 99 degrees Type and Screen Result Value Ref Range ABORh O Positive Antibody Screen Negative Specimen Expires 10/12/2023 23:59 EST Prepare RBC: 2 Units Result Value Ref Range Product ID Red Blood Cells Blood Type Code 5100 Product Code [id number] Status Info Ready for issue Unit Number [id number] Blood Type O Pos Cross Match Compatible Product ID Red Blood Cells Blood Type Code 5100 Product Code [id number] Status Info Ready for issue Unit Number [id number] Blood Type O Pos Cross Match Compatible CBC Auto Differential Result Value Ref Range WBC 22.79 (H) 4.50 - 11.00 K/mcL RBC 2.60 (L) 4.00 - 5.20 M/mcL Hemoglobin 7.2 (L) 12.0 - 16.0 g/dL Hematocrit 22.3 (L) 36.0 - 46.0 % MCV 85.8 80.0 - 100.0 fL MCH 27.7 26.0 - 34.0 pg MCHC 32.3 31.0 - 37.0 g/dL Platelets 389 150 - 400 K/mcL RDW - CV 16.3 (H) 11.6 - 14.8 % MPV 9.6 9.4 - 12.4 fL Neutrophils 84.4 % Lymphocytes 5.6 % Monocytes 8.6 % Eosinophils 0.0 % Basophils 0.0 % IG Percent 1.40 % Neutrophils Abs 19.22 (H) 1.70 - 7.00 K/mcL Lymphocytes Abs 1.27 0.90 - 4.00 K/mcL [Narrative TRUNCATED] Orders Placed This Encounter CT Angiogram Abdominal Aorta With Lower Extremity Creatinine, serum No follow-ups on file. Please do not hesitate to contact the office at the above number, or directly via my mobile phone number, should you have additional questions or concerns. Thank you for entrusting your patient to our care. Respectfully, Tylor Kruger MD documented in this [id number] Instructions* Patient Instructions* Rachael Gipson RN - 11/17/2023 8:12 AM EDT We will see you back in the office: to follow up with Dr. Rey in [place] and wound care Labs: creatinine lab draw prior to CT scan Medication Changes: The following testing has been ordered for you: CT angiogram of abdomen/pelvis with lower extremityrunoff Scheduling should reach out to you to schedule testing But if you do not hear from them please call the number below To schedule testing please reach out to [phone] and follow the prompts to scheduling If you need to schedule, cancel or reschedule an appointment please call [facility] [phone] If you have any questions please call JACKIE Cano [phone] documented in this [id number] History of Present illness Narrative* Adilene Bryan, [facility],PharmD - 11/14/2023 9:59 AM EDT Images from the original note were not included. Anticoagulation Progress Note Date of Visit: November 14, 2023 Patient Name: Scott Obregon : 1960 Age: 63 y.o. Scott Winters [place] with [facility] called with INR results. INR obtained from an outside source: Home Health. Anticoagulation Summary As of 11/14/2023 INR goal: 2.0-3.0 TTR: 87.0% (9.9 mo) INR used for dosin.5 (11/14/2023) Warfarin maintenance plan: 7.5 mg (5 mg x 1.5) every Mon, Mon, Sat; 5 mg (5 mg x 1) all other days Weekly warfarin total: 42.5 mg Plan last modified: Adilene Bryan, [facility],PharmD (02/15/2023) Next INR check: 11/21/2023 Priority: High Target end date: Indefinite Indications Acute deep vein thrombosis (DVT) of axillary vein of left upper extremity (HCC) [I82.A12] Lab Results Component Value Date WBC 12.80 (H) 10/20/2023 HGB 7.4 (L) 10/20/2023 HCT 23.6 (L) 10/20/2023 MCV 87.4 10/20/2023 EXTMCV 86 11/19/2021 PLT 489 (H) 10/20/2023 RBC 2.70 (L) 10/20/2023 Lab Results Component Value Date CREATININE 0.84 10/20/2023 CREATININE 1.02 10/21/2021 Wt Readings from Last 3 Encounters: 11/01/23 59 kg (130 lb) 10/18/23 62.9 kg (138 lb 9.6 oz) 10/09/23 54.4 kg (120 lb) Ht Readings from Last 1 Encounters: 11/01/23 5' 11 Encounter Summary: ASSESSMENT: Patient Findings Negatives: Patient Reported Falls, Signs/symptoms of thrombosis, Signs/symptoms of bleeding, Laboratory test error suspected, Change in health, Change in alcohol use, Change in activity, Upcoming invasive procedure, Emergency department visit, Upcoming dental procedure, Missed doses, Extra doses, Change in medications, Change in diet/appetite, Hospital admission, Bruising, Other complaints Warfarin taken in the previous 7 days: 42.5 mg INR is supratherapeutic at 3.5 today. There is no clear reason why INR is above the range. Adilene with [facility] called with INR results. She is able to correctly confirm the dose of warfarin, and denies any changes or concerns. INR is above the range for no clear reason. Will lower the dose of warfarin. Will have patient take 7.5mg on Monday only and 5mg all other days. Adilene read this back to me. Will recheck in another week. PLAN: Will decrease weekly warfarin dose to 37.5 mg/week. This is an approximate 11% change from previousmaintenance dosing regimen. Will check next INR in 1 week unless there are any changes before then. Encouraged patient to contact clinic with any changes. Adilene Bryan RPh,PharmD [facility] Dept: [phone] documented in this [id number] Patient's home Progress note* Actions CP assess, VS WNL. Fingersti ck INR of 3.5 called to Coumadin Clinic. Patient is to take 7.5 mg on Monday and 5mg all other Days. She will need rechecked on 11/21/2023. Narratives Homebound Status Criteria 1: Assistive Device(s): Walker Needs assistance of at least 1 to leave home Criteria 2: Patient confined to home due to unsteady gait/poor balance and poor endurance related to Aorta Surgery. Type of Home: split level / walkout documented in this encounter [id number] History of Present illness Narrative* Michelle Littlejohn RPh,PharmD - 11/08/2023 4:07 PM EDT Anticoagulation Progress Note Date of Visit: November 08, 2023 Patient Name: Scott Obregon : 1960 Age: 63 y.o. Scott Obregon Had her INR checked and result called in by her home health nurse, Camila, from [facility]. Anticoagulation Summary As of 11/08/2023 INR goal: 2.0-3.0 TTR: 87.6% (9.7 mo) INR used for dosin.3 (11/08/2023) Warfarin maintenance plan: 7.5 mg (5 mg x 1.5) every Mon, Mon, Sat; 5 mg (5 mg x 1) all other days Weekly warfarin total: 42.5 mg Plan last modified: Adilene Bryan RPh,PharmD (02/15/2023) Next INR check: 11/16/2023 Priority: Maintenance Target end date: Indefinite Indications Acute deep vein thrombosis (DVT) of axillary vein of left upper extremity (HCC) [I82.A12] Lab Results Component Value Date WBC 12.80 (H) 10/20/2023 HGB 7.4 (L) 10/20/2023 HCT 23.6 (L) 10/20/2023 MCV 87.4 10/20/2023 EXTMCV 86 11/19/2021 PLT 489 (H) 10/20/2023 RBC 2.70 (L) 10/20/2023 Lab Results Component Value Date CREATININE 0.84 10/20/2023 CREATININE 1.02 10/21/2021 Wt Readings from Last 3 Encounters: 11/01/23 59 kg (130 lb) 10/18/23 62.9 kg (138 lb 9.6 oz) 10/09/23 54.4 kg (120 lb) Ht Readings from Last 1 Encounters: 11/01/23 5' 11 Encounter Summary: ASSESSMENT: Patient Findings Negatives: Patient Reported Falls, Signs/symptoms of thrombosis, Signs/symptoms of bleeding, Laboratory test error suspected, Change in health, Change in alcohol use, Change in activity, Upcoming invasive procedure, Emergency department visit, Upcoming dental procedure, Missed doses, Extra doses, Change in medications, Change in diet/appetite, Hospital admission, Bruising, Other complaints Warfarin taken in the previous 7 days: 42.5 mg. Patient is able to confirm that she has resumed herusual home dose of 42.5 mg/week since discharging from [facility]. INR is therapeutic today at 2.3. Since INR is in range, will continue same dose. Will recheck next week again to ensure stability. PLAN: Will continue weekly warfarin dose of 42.5 mg/week. Will check next INR in 1 week unless there are any changes before then. Encouraged patient to contact clinic with any changes. Michelle Littlejohn RPh,PharmD [facility] Dept: [phone] documented in this [id number] Patient's home Progress note* Actions [facility] Patient's goals for HomeCare: to gain strength, endurance, enhance safety. What skill(s) will be provided by your discipline: medication eduacation, PT/INR checks, safety education Rehab Potential: good HISTORY OF PRESENT ILLNESS LEADING UP TO HOME CARE ADMISSION (including facility stays and dates): 11/03-11/05/23 Side/site of body affected (dominant hand if neuro diagnosis): abdomen, b/l groin incisions Comorbidities with potential to affect the Plan of Care: HTN and DVT. orthostatic hypotension Additional Disciplines requested: PT Disciplines referred and declined by patient/caregiver: NA Prior functional level: independent Current functional level: assist x1; caregiver assist, FWW, w/ch Fall Risk: MAHC-10 score 5, 4-10 Patient IS at risk for falls (a score of 6 or greater is a predictor of future falls) Medication Issues: NA Wound summary: ALL incisions healed/closed HOMEBOUND STATUS Criteria 1: Assistive Device(s): Walker and w/c Needs assistance of at least 1 to leave home Criteria 2: Patient confined to home due to limited ambulation related to recent surger for AAA repair, unsteady gait/poor balance, unstable BP and poor endurance related to muscle weakness. Narratives INR to be checked on next vi sit per coumadin clinic.Educated patient on the importance of foot care: proper foot care is important due to raynauds syndrome . This causes you to have decreased sensitivity to your feet and reduces your ability to feel blisters, cuts or pressure points on bony prominence due to ill-fitting shoe wear. Inspect your feet daily. Notify your SN or MD if a sore isn't healing within a few days. Wash your feet daily and clean in between your toes and dry them thoroughly. documented in this encounter [id number] Patient's home Progress note* Actions [facility] Clinical [facility] farrukh Patient's goals for HomeCare: to gain strength, endurance, enhance safety. What skill(s) will be provided by your discipline: medication eduacation, PT/INR checks, safety education Rehab Potential: good HISTORY OF PRESENT ILLNESS LEADING UP TO HOME CARE ADMISSION (including facility stays and dates): 11/03-11/05/23 Side/site of body affected (dominant hand if neuro diagnosis): abdomen, b/l groin incisions Comorbidities with potential to affect the Plan of Care: HTN and DVT. orthostatic hypotension Additional Disciplines requested: PT Disciplines referred and declined by patient/caregiver: NA Prior functional level: independent Current functional level: assist x1; caregiver assist, FWW, w/ch Fall Risk: MAHC-10 score 5, 4-10 Patient IS at risk for falls (a score of 6 or greater is a predictor of future falls) Medication Issues: NA Wound summary: ALL incisions healed/closed HOMEBOUND STATUS Criteria 1: Assistive Device(s): Walker and w/c Needs assistance of at least 1 to leave home Criteria 2: Patient confined to home due to limited ambulation related to recent surger for AAA repair, unsteady gait/poor balance, unstable BP and poor endurance related to muscle weakness. Narratives INR to be checked on next vi sit per coumadin clinic.Educated patient on the importance of foot care: proper foot care is important due to raynauds syndrome . This causes you to have decreased sensitivity to your feet and reduces your ability to feel blisters, cuts or pressure points on bony prominence due to ill-fitting shoe wear. Inspect your feet daily. Notify your SN or MD if a sore isn't healing within a few days. Wash your feet daily and clean in between your toes and dry them thoroughly. documented in this encounter [id number] History of Present illness Narrative* Rafaela Garcias RN - 11/03/2023 11:02 AM EDT Reviewed with Dr. Guerra post op follow up appt with Cate Contreras CLIMATOLOGY PROFESSOR s/p EVAR and Right Renal Stenting 10/10/[address] Guerra and Dr. Kruger. Per review, patient is scheduled for follow up with on 11/[address] with [address] ultrasound[address] Per Dr. Guerra, patient to continue follow up with Dr. Kruger and does not need to continue followup with us. Patient aware of follow up with Dr. Kruger documented in this [id number] NoteOffice Visit Patient Name: Scott Obregon MR #: [id number] Assessment/Plan: I saw Scott in the office today for the one week Vascular surgery follow-up. she is a 63 y.o. female with history of Hyperlipidemia, hypertension, factor 5 Leiden on coumadin, hypothyroidism, appendicitis s/p laparoscopic appendectomy (09/14/2018) who presented to [facility] on 10/09/2023 with a ruptured infrarenal abdominal aortic aneurysm, acute blood loss anemia, hemorrhagic shock and underwent emergent EVAR and snorkel stent to left renal artery, right brachial artery cutdown on 10/10/[address] Guerra and Dr. Kruger. She is currently at [facility] for a prolonged recovery. SHe is doing quite well with PT/OT per patient. She has lost a considerable amount of weight, 5'11, 130 lbs.She is anxious to go home and feels well supported at home. The vitals are listed below, known hypertension with orthostatic symptoms, will continue to monitor, no med change today. The groin sites are soft and healing. Patient in rehab hospital, The lungs are clear and equal. INR stable at 2.8. Activity has been progressing. Right arm sutures removed, incision intact. She has an IV to left upper arm. Bowels are moving per patient. Cool extremities with known raynaud's syndrome. Palpable PT and DP. 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 Kruger 11/16 Discussed with patient above appt, she agrees to return visit Patient's Medications New Prescriptions No medications on file Previous Medications ACETAMINOPHEN (TYLENOL) 325 MG TABLET Take 2 (two) tablets (650 mg total) by mouth every 6 (six) hours as needed for pain . AMLODIPINE (NORVASC) 10 MG TABLET Take 1 (one) tablet (10 mg total) by mouth daily Start: 10/21/23. ASPIRIN 81 MG EC TABLET Take 1 (one) tablet (81 mg total) by mouth daily Start: 10/21/23. ATORVASTATIN (LIPITOR) 20 MG TABLET Take 1 (one) tablet (20 mg total) by mouth nightly . CLONIDINE HCL (CATAPRES) 0.1 MG TABLET Take 1 (one) tablet (0.1 mg total) by mouth every 6 (six) hours as needed (HIGH BLOOD PRESSURE) . HYDRALAZINE (APRESOLINE) 25 MG TABLET Take 1 (one) tablet (25 mg total) by mouth every 6 (six) hours as needed (SBP > 160) . LEVOTHYROXINE (SYNTHROID, LEVOTHROID) 125 MCG TABLET TAKE 1 TABLET BY MOUTH DAILY LEVOTHYROXINE (SYNTHROID, LEVOTHROID) 25 MCG TABLET Take one tablet on Monday and Monday only in addition to 125mcg dose. . LIDOCAINE 4 % PATCH Place 1 (one) patch on the skin daily Remove & Discard patch within 12 hours or as directed by MD . MAGNESIUM HYDROXIDE (MOM) 400 MG/5 ML SUSP Take 30 mL (2,400 mg total) by mouth daily as needed (CONSTIPATION) . METOPROLOL TARTRATE (LOPRESSOR) 25 MG TABLET Take 1 (one) tablet (25 mg total) by mouth 2 (two) times a day . MULTIVITAMIN (THERAGRAN) PER TABLET Take 1 (one) tablet by mouth daily . NALOXONE (NARCAN) 4 MG/ACTUATION SPRY Administer 1 (one) spray (4 mg total) into one nostril as needed (OPIOID OVERDOSE) Administer 1 spray into one nostril for known or suspected opioid overdose. If patient worsens or does not respond, may repeat in 2-3 minutes. . OXYCODONE (ROXICODONE) 5 MG IMMEDIATE RELEASE TABLET Take 1 (one) tablet (5 mg total) by mouth every 6 (six) hours as needed for pain . SENNA-DOCUSATE (SENNOSIDES-DOCUSATE SODIUM) 8.6-50 MG Take 1 (one) tablet by mouth daily . WARFARIN (COUMADIN) 5 MG TABLET Take 1 tablet (5mg) on Monday, Monday, Monday, Monday. Take 1.5 tablets (7.5mg) on Monday, , Monday or as directed by the anticoagulation clinic. . WARFARIN (COUMADIN) 7.5 MG TABLET Take 1 (one) tablet (7.5 mg total) by mouth daily On Monday and Monday . Modified Medications No medications on file Discontinued Medications No medications on file Physical Examination: Vital Signs: BP (!) 148/76 (BP Location: Right arm, Patient Position: Sitting, BP Cuff Size: Adult) Pulse (!) 52 Ht 5' 11 Wt 59 kg (130 lb) BMI 18.13 kg/m ROS Physical Exam AUTHENTICATED BY CATE CONTRERAS, ON 11/01/2023 15:47:02[facility] 11-01-2023 History of Present illness Narrative* ContrerasCate Leona, CLIMATOLOGY PROFESSOR - 11/01/2023 1:49 PM EDT Office Visit Patient Name: Scott Obregon MR #: [id number] Assessment/Plan: I saw Scott in the office today for the one week Vascular surgery follow-up. she is a 63 y.o. female with history of Hyperlipidemia, hypertension, factor 5 Leiden on coumadin, hypothyroidism, appendicitis s/p laparoscopic appendectomy (09/14/2018) who presented to [facility] on 10/09/2023 with a ruptured infrarenal abdominal aortic aneurysm, acute blood loss anemia, hemorrhagic shock and underwent emergent EVAR and snorkel stent to left renal artery, right brachial artery cutdown on 10/10/[address] Guerra and Dr. Kruger. She is currently at [facility] for a prolonged recovery. SHe is doing quite well with PT/OT per patient. She has lost a considerable amount of weight, 5'11, 130 lbs. She is anxious to go home and feels well supported at home. The vitals are listed below, known hypertension with orthostatic symptoms, will continue to monitor, no med change today. The groin sites are soft and healing. Patient in rehab hospital, The lungs are clear and equal. INR stable at 2.8. Activity has been progressing. Right arm sutures removed, incision intact. She has an IV to left upper arm. Bowels are moving per patient. Cool extremities with known raynaud's syndrome. Palpable PT and DP. 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 Kruger 11/16 Discussed with patient above appt, she agrees to return visit Patient's Medications New Prescriptions No medications on file Previous Medications ACETAMINOPHEN (TYLENOL) 325 MG TABLET Take 2 (two) tablets (650 mg total) by mouth every 6 (six) hours as needed for pain . AMLODIPINE (NORVASC) 10 MG TABLET Take 1 (one) tablet (10 mg total) by mouth daily Start: 10/21/23. ASPIRIN 81 MG EC TABLET Take 1 (one) tablet (81 mg total) by mouth daily Start: 10/21/23. ATORVASTATIN (LIPITOR) 20 MG TABLET Take 1 (one) tablet (20 mg total) by mouth nightly . CLONIDINE HCL (CATAPRES) 0.1 MG TABLET Take 1 (one) tablet (0.1 mg total) by mouth every 6 (six) hours as needed (HIGH BLOOD PRESSURE) . HYDRALAZINE (APRESOLINE) 25 MG TABLET Take 1 (one) tablet (25 mg total) by mouth every 6 (six) hours as needed (SBP > 160) . LEVOTHYROXINE (SYNTHROID, LEVOTHROID) 125 MCG TABLET TAKE 1 TABLET BY MOUTH DAILY LEVOTHYROXINE (SYNTHROID, LEVOTHROID) 25 MCG TABLET Take one tablet on Monday and Monday only inaddition to 125mcg dose. . LIDOCAINE 4 % PATCH Place 1 (one) patch on the skin daily Remove & Discard patch within 12 hours or as directed by MD . MAGNESIUM HYDROXIDE (MOM) 400 MG/5 ML SUSP Take 30 mL (2,400 mg total) by mouth daily as needed (CONSTIPATION) . METOPROLOL TARTRATE (LOPRESSOR) 25 MG TABLET Take 1 (one) tablet (25 mg total) by mouth 2 (two) times a day . MULTIVITAMIN (THERAGRAN) PER TABLET Take 1 (one) tablet by mouth daily . NALOXONE (NARCAN) 4 MG/ACTUATION SPRY Administer 1 (one) spray (4 mg total) into one nostril as needed (OPIOID OVERDOSE) Administer 1 spray into one nostril for known or suspected opioid overdose. Ifpatient worsens or does not respond, may repeat in 2-3 minutes. . OXYCODONE (ROXICODONE) 5 MG IMMEDIATE RELEASE TABLET Take 1 (one) tablet (5 mg total) by mouth every 6 (six) hours as needed for pain . SENNA-DOCUSATE (SENNOSIDES-DOCUSATE SODIUM) 8.6-50 MG Take 1 (one) tablet by mouth daily . WARFARIN (COUMADIN) 5 MG TABLET Take 1 tablet (5mg) on Monday, Monday, Monday, Monday. Take 1.5 tablets (7.5mg) on Monday, , Monday or as directed by the anticoagulation clinic. . WARFARIN (COUMADIN) 7.5 MG TABLET Take 1 (one) tablet (7.5 mg total) by mouth daily On Monday and Monday . Modified Medications No medications on file Discontinued Medications No medications on file Physical Examination: Vital Signs: BP (!) 148/76 (BP Location: Right arm, Patient Position: Sitting, BP Cuff Size: Adult) Pulse (!) 52 Ht 5' 11 Wt 59 kg (130 lb) BMI 18.13 kg/m ROS Physical Exam documented in this [id number] [facility]05-24-2024 [facility]05-23-2024 [facility]05-23-2024 [facility]05-23-2024 Note [facility]05-22-2024 [facility] 10-18-2023 [facility]05-21-2024 [facility]05-21-2024 [facility]05-20-2024 [facility]05-20-2024 [facility]05-19-2024 Note [facility]05-19-2024 [facility] 10-14-2023 [facility]05-18-2024 [facility]05-17-2024 [facility]05-17-2024 [facility]05-17-2024 [facility]05-16-2024 Note [facility]05-15-2024 History of Present illness Narrative* Yakelin Iqbal MA - 10/11/2023 9:57 AM EDT Patient is s/p emergent EVAR with renal stenting with Dr. Guerra/Dr Kruger. Per Cheyenne Carey DNP,patient needs a 1 month follow up appointment with Dr Kruger only along with a renal duplex. She is scheduled for renal duplex on 11-16-2023 at 9:00 am in [place] then she will see Dr Kruger on Monday11-17-2023 at 8:00am in the [facility] office location. Patient aware/AVS updated documented in this [id number] [facility] NoteSubjective Patient ID: Scott Obregon is a 63 y.o. female. Back Pain This is a new problem. The current episode started 1 to 4 weeks ago. The problem occurs constantly. The problem is unchanged. The pain is present in the lumbar spine. The quality of the pain is described as aching. The pain does not radiate. The pain is at a severity of 7/10. The pain is moderate. The pain is The same all the time. The symptoms are aggravated by position. Stiffness is present All day. Associated symptoms include weakness. Pertinent negatives include no numbness, paresis or paresthesias. She has tried nothing for the symptoms. Wt Readings from Last 3 Encounters: 09/26/23 56.1 kg (123 lb 11.2 oz) 04/24/23 63.5 kg (140 lb 1.6 oz) 04/10/23 64.2 kg (141 lb 8 oz) The following portions of the patient's history were reviewed and updated as appropriate: She has a past medical history of Acute appendicitis with localized peritonitis and gangrene, without perforation or abscess (09/15/2018), Anemia, Appendicitis (2018), Arm DVT (deep venous thromboembolism), acute, left (HCC) (05/2022), Disease of thyroid gland, Hyperlipidemia, Hypertension, and Right hip pain. She does not have any pertinent problems on file. She has a past surgical history that includes Appendectomy Laparoscopic (N/A, 09/14/2018); Appendectomy; and Interventional Radiology (N/A, 11/16/2022). Her family history includes Breast cancer in her sister; Cancer in her father; Diabetes in her father and sister; Heart disease in her father and sister; Hypertension in her father and sister; Kidney disease in her mother; Thyroid disease in her mother and sister. She reports that she has been smoking cigarettes. She started smoking about 27 years ago. She has a 10 pack-year smoking history. She has never used smokeless tobacco. She reports that she does not currently use alcohol. She reports that she does not use drugs. Current Outpatient Medications Medication Sig Dispense Refill levothyroxine (SYNTHROID, LEVOTHROID) 125 MCG tablet TAKE 1 TABLET BY MOUTH DAILY 90 tablet 3 levothyroxine (SYNTHROID, LEVOTHROID) 25 MCG tablet Take one tablet on Monday and Monday only in addition to 125mcg dose. . 8 tablet 11 multivitamin (THERAGRAN) per tablet Take 1 (one) tablet by mouth daily . rosuvastatin (CRESTOR) 10 MG tablet Take 1 (one) tablet (10 mg total) by mouth daily . 30 tablet 11 cyclobenzaprine (FLEXERIL) 10 MG tablet Take 1 (one) tablet (10 mg total) by mouth 3 (three) times a day as needed for muscle spasms . 60 tablet 0 oxyCODONE-acetaminophen (PERCOCET) 5-325 mg per tablet Take 1 tablet 1 hour before MRI Scan . (Patient not taking: Reported on 09/26/2023 .) 1 tablet 0 oxyCODONE-acetaminophen (PERCOCET) 5-325 mg per tablet Take 1 (one) tablet by mouth every 6 (six) hours as needed for pain (Days supply per fill: 7) . 21 tablet 0 warfarin (COUMADIN) 5 MG tablet Take 1 tablet (5mg) on Monday, Monday, Monday, Monday. Take 1.5 tablets (7.5mg) on Monday, , Monday or as directed by the anticoagulation clinic. . (Patient not taking: Reported on 09/26/2023 .) 40 tablet 11 warfarin (COUMADIN) 7.5 MG tablet Take 1 (one) tablet (7.5 mg total) by mouth daily On Monday and Monday . No current facility-administered medications for this visit. . Review of Systems Musculoskeletal: Positive for back pain. Neurological: Positive for weakness. Negative for numbness and paresthesias. Objective Physical Exam Constitutional: Appearance: She is ill-appearing. Cardiovascular: Rate and Rhythm: Regular rhythm. Heart sounds: Normal heart sounds. Musculoskeletal: Lumbar back: Spasms and tenderness present. No swelling, edema, deformity, signs of trauma or lacerations. Decreased range of motion. Negative right straight leg raise test. Neurological: Mental Status: She is alert. Assessment/Plan: Diagnoses and all orders for this visit: Acute right-sided low back pain without sciatica - cyclobenzaprine (FLEXERIL) 10 MG tablet; Take 1 (one) tablet (10 mg total) by mouth 3 (three) times a day as needed for muscle spasms . - oxyCODONE-acetaminophen (PERCOCET) 5-325 mg per tablet; Take 1 (one) tablet by mouth every 6 (six) hours as needed for pain (Days supply per fill: 7) . Due to weight loss I have asked her to increase boost to BID Felicity Olson CNP [place] [phone] AUTHENTICATED BY FELICITY OLSON, ON 09/26/2023 09:39:34[facility] 09-26-2023 History of Present illness Narrative* Felicity Olson, EUGENE - 09/26/2023 9:16 AM EDT Images from the original note were not included. Subjective Patient ID: Scott Obregon is a 63 y.o. female. Back Pain This is a new problem. The current episode started 1 to 4 weeks ago. The problem occurs constantly.The problem is unchanged. The pain is present in the lumbar spine. The quality of the pain is described as aching. The pain does not radiate. The pain is at a severity of 7/10. The pain is moderate. The pain is The same all the time. The symptoms are aggravated by position. Stiffness is present José Luis. Associated symptoms include weakness. Pertinent negatives include no numbness, paresis or paresthesias. She has tried nothing for the symptoms. Wt Readings from Last 3 Encounters: 09/26/23 56.1 kg (123 lb 11.2 oz) 04/24/23 63.5 kg (140 lb 1.6 oz) 04/10/23 64.2 kg (141 lb 8 oz) The following portions of the patient's history were reviewed and updated as appropriate: She has apast medical history of Acute appendicitis with localized peritonitis and gangrene, without perforation or abscess (09/15/2018), Anemia, Appendicitis (2018), Arm DVT (deep venous thromboembolism), acute, left (HCC) (05/2022), Disease of thyroid gland, Hyperlipidemia, Hypertension, and Right hip pain. She does not have any pertinent problems on file. She has a past surgical history that includes Appendectomy Laparoscopic (N/A, 09/14/2018); Appendectomy; and Interventional Radiology (N/A, 11/16/2022). Her family history includes Breast cancer in her sister; Cancer in her father; Diabetes in her father and sister; Heart disease in her father and sister; Hypertension in her father and sister; Kidneydisease in her mother; Thyroid disease in her mother and sister. She reports that she has been smoking cigarettes. She started smoking about 27 years ago. She has a10 pack-year smoking history. She has never used smokeless tobacco. She reports that she does not currently use alcohol. She reports that she does not use drugs. Current Outpatient Medications Medication Sig Dispense Refill levothyroxine (SYNTHROID, LEVOTHROID) 125 MCG tablet TAKE 1 TABLET BY MOUTH DAILY 90 tablet 3 levothyroxine (SYNTHROID, LEVOTHROID) 25 MCG tablet Take one tablet on Monday and Monday only inaddition to 125mcg dose. . 8 tablet 11 multivitamin (THERAGRAN) per tablet Take 1 (one) tablet by mouth daily . rosuvastatin (CRESTOR) 10 MG tablet Take 1 (one) tablet (10 mg total) by mouth daily . 30 tablet 11 cyclobenzaprine (FLEXERIL) 10 MG tablet Take 1 (one) tablet (10 mg total) by mouth 3 (three) times a day as needed for muscle spasms . 60 tablet 0 oxyCODONE-acetaminophen (PERCOCET) 5-325 mg per tablet Take 1 tablet 1 hour before MRI Scan . (Patient not taking: Reported on 09/26/2023 .) 1 tablet 0 oxyCODONE-acetaminophen (PERCOCET) 5-325 mg per tablet Take 1 (one) tablet by mouth every 6 (six) hours as needed for pain (Days supply per fill: 7) . 21 tablet 0 warfarin (COUMADIN) 5 MG tablet Take 1 tablet (5mg) on Monday, Monday, Monday, Monday. Take 1.5 tablets (7.5mg) on Monday, , Monday or as directed by the anticoagulation clinic. . (Patient not taking: Reported on 09/26/2023 .) 40 tablet 11 warfarin (COUMADIN) 7.5 MG tablet Take 1 (one) tablet (7.5 mg total) by mouth daily On Monday and Monday . No current facility-administered medications for this visit. . Review of Systems Musculoskeletal: Positive for back pain. Neurological: Positive for weakness. Negative for numbness and paresthesias. Objective Physical Exam Constitutional: Appearance: She is ill-appearing. Cardiovascular: Rate and Rhythm: Regular rhythm. Heart sounds: Normal heart sounds. Musculoskeletal: Lumbar back: Spasms and tenderness present. No swelling, edema, deformity, signs of trauma or lacerations. Decreased range of motion. Negative right straight leg raise test. Neurological: Mental Status: She is alert. Assessment/Plan: Diagnoses and all orders for this visit: Acute right-sided low back pain without sciatica - cyclobenzaprine (FLEXERIL) 10 MG tablet; Take 1 (one) tablet (10 mg total) by mouth 3 (three) times a day as needed for muscle spasms . - oxyCODONE-acetaminophen (PERCOCET) 5-325 mg per tablet; Take 1 (one) tablet by mouth every 6 (six) hours as needed for pain (Days supply per fill: 7) . Due to weight loss I have asked her to increase boost to BID Felicity Olson CNP [facility] [phone] documented in this [id number] History of Present illness Narrative* Alcides Leary - 09/07/2023 8:09 AM EDT Anticoagulation Progress Note Date of Visit: September 07, 2023 Patient Name: Scott Obregon : 1960 Age: 63 y.o. Scott Obregon is here for an anticoagulation follow-up visit. INR obtained via POC finger stick device. Anticoagulation Summary As of 09/07/2023 INR goal: 2.0-3.0 TTR: 92.0% (8.6 mo) INR used for dosin.8 (09/07/2023) Warfarin maintenance plan: 7.5 mg (5 mg x 1.5) every Tue, Elena, Sat; 5 mg (5 mg x 1) all other days Weekly warfarin total: 42.5 mg Plan last modified: Adilene Bryan, [facility],PharmD (02/15/2023) Next INR check: 10/12/2023 Priority: Maintenance Target end date: Indefinite Indications Acute deep vein thrombosis (DVT) of axillary vein of left upper extremity (HCC) [I82.A12] Lab Results Component Value Date WBC 7.57 12/12/2022 HGB 11.9 (L) 12/12/2022 HCT 37.3 12/12/2022 MCV 92.1 12/12/2022 EXTMCV 86 11/19/2021 PLT 308 12/12/2022 RBC 4.05 12/12/2022 Lab Results Component Value Date CREATININE 0.78 01/25/2023 CREATININE 1.02 10/21/2021 Wt Readings from Last 3 Encounters: 04/24/23 63.5 kg (140 lb 1.6 oz) 04/10/23 64.2 kg (141 lb 8 oz) 01/25/23 65.5 kg (144 lb 4.8 oz) Ht Readings from Last 1 Encounters: 04/24/23 5' 11 Encounter Summary: ASSESSMENT: Patient Findings Positives: Missed doses (missed 1/2 tab dose a few weeks ago) Negatives: Patient Reported Falls, Signs/symptoms of thrombosis, Signs/symptoms of bleeding, Laboratory test error suspected, Change in health, Change in alcohol use, Change in activity, Upcoming invasive procedure, Emergency department visit, Upcoming dental procedure, Extra doses, Change in medications, Change in diet/appetite, Hospital admission, Bruising, Other complaints Warfarin taken in the previous 7 days: 42.5 mg INR is therapeutic today at 2.8. Patient reports only being able to take 5 mg instead of 7.5 mg a few weeks ago due to having just a single tablet remaining. Otherwise, patient denies any other missed or extra warfarin doses, and denies any changes or concerns. Patient's INR has been within range for quite some time now (x8 visits). Will continue with current regimen and recheck INR in 5 weeks. PLAN: Will continue weekly warfarin dose of 42.5 mg/week. Will check next INR in 5 weeks unless there are any changes before then. Encouraged patient to contact clinic with any changes. [facility] Dept: [phone] Associated attestation - Michelle Littlejohn RPh,PharmKirk - 09/07/2023 8:20 AM EDT I, Michelle Littlejohn RPh,PharmKirk, attest that I was present during the patient encounter. I agree withthe documentation, assessment, and plan outlined in the below documentation. documented in this [id number] History of Present illness Narrative* Theresa Boykin PA-C - 08/24/2023 1:06 PM EDT [facility] Progress Note Patient Name: Scott Obregon Date of Service: : 1960 Impression: Scott Obregon is a 63 y.o. year old female with numbness to the bilateral toes as well as chronic, progressive low back pain without radiation, evidence of L5-S1 degenerative disc disease on recent XR lumbar spine, as well as right dorsiflexion weakness (now improving). Plan: - Recommend MRI lumbar spine as the patient has dorsiflexion weakness on the right - Recommend EMG lower extremities due to the bilateral toe numbness (digits 1-3 bilaterally) and right dorsiflexion weakness - Will plan for follow-up upon completion of the studies - Advised patient to contact the office with any new or worsening symptoms - Advised patient to follow-up with PCP/supply officer re: PAL results - Nursing notes reviewed KATHY Higuera, LAKESHIA [facility] Office: Chief Complaint: Back Pain (Ref by Lavern, lumbar radiculopathy. Patient reports that he biggest issue is her feet. She is having numbness. ) HPI: Scott Obregon is a 63 y.o. year old female with back pain, right lower extremity weakness, andbilateral toe numbness, who presents for initial evaluation. History is obtained from the patient and chart review. The patient states that she has a history of chronic low back pain, which improves with activities, such as swimming. Unfortunately, she has not been able to swim for quite some time,which she feels is contributing to her worsening pain. She notes that the pain does not radiate. Itis typically localized to the lumbar region or the left paraspinal region at the thoracolumbar junction. She notes that it has not changed in its location for a number of years. She uses heat and iceto alleviate the pain with improvement. She states that she does have a history of significant weight loss after taking Eliquis for Factor V Leiden. She has since discontinued this medication and herappetite has returned. She reports that she is regaining weight. She states that she does have a cool sensation to her hands and toes bilaterally as well as numbness to digits 1-3 bilaterally, worse on the right than the left. She has been informed in the past that she may have Raynaud's syndrome. She is not taking any medications for this. She inquired about her PAL, and I shared the results andadvised her to follow-up with her PCP regarding next steps. She states that she does have a recent history of weakness to the right lower extremity, particularly with dorsiflexion. This has improved vastly since her visit with Dr. Puckett. She states that she initially could not raise her toes. Of note, the patient states that she frequently crosses her right leg over her left and sits like this for some time. Today, she is able to give some effort against resistance. She is ambulating without di fficulties, no tripping, stumbling, or falling. She denies any fevers, chills, sweats, recent illnesses. Medical history is pertinent for hypothyroidism, hyperlipidemia, and familial hypercholesterolemia in addition to the previously mentioned Factor V Leiden (found after a DVT). Surgical history is pertinent only for an appendectomy, and she denies any personal or family history of adverse reactions to anesthesia. She is a current smoker, smoking 1/2 ppd for the last 20 years. She denies any illicit drug use history and admits to occasional alcohol use. No other concerns at this time. Physical Examination: PACU Vitals 08/24/23 1256 BP: 122/64 Temp: 98.9 F (37.2 C) PainSc: 3 PainLoc: Foot General: Healthy, well-appearing 63 y.o. female, in NAD HENT: Hearing grossly intact Eyes: PERRLA, 3mm bilaterally Neuro: Awake, alert, speech fluent Chest: Chest rise symmetric, respirations non-labored Cardiac: No pedal edema, no posterior calf tenderness Back: - No midline thoracic spine tenderness; no midline lumbar spine tenderness; positive for left paraspinal thoracic spine tenderness; positive for left paraspinal lumbar spine tenderness - No right SI joint tenderness; no left SI joint tenderness Skin: Warm and dry MSK: - No clonus on right; no clonus on left - Patellar Tendon Reflexes: 1+ on right, 1+ on left - No tenderness over the right fibular head Muscle Group Right Left Hip Flexion 5 5 Knee Extension 5 5 Knee Flexion 5 5 Dorsiflexion 4 5 Plantar Flexion 5 5 Sensation intact to light touch to bilateral lower extremities with diminished sensation to digits 1-3 bilaterally. Ambulates without abnormal posture or gait. Radiologic/Laboratory Studies Reviewed: XR Lumbar Spine Radiologic interpretation is as follows: Three views of the lumbar spine. No acute osseous abnormality. Normal lumbar lordosis. No listhesis. No abnormal curvature. Vertebral body heights are normal. Moderate to severe loss of disc height at L5-S1. IMPRESSION: L5-S1 disc disease. PAL Conclusions * Right and left ankle brachial indices are normal. Right PAL is 0.94. Left PAL is 0.96. * No evidence of small vessel disease at the transmetatarsal level in both feet. * Right toe PPG waveform is absent. Toe brachial index is 0.0. * Left toe PPG waveform is absent. Toe brachial index is 0.0. Recommendations * Normal triphasic waveforms and perfusion pressures to the level of midfoot bilaterally, however with no detectable flow to both first digits. Raynaud's studies if clinically indicated. documented in this [id number] History of Present illness Narrative* Michelle Littlejohn, [facility],PharmD - 08/10/2023 8:30 AM EDT Anticoagulation Progress Note Date of Visit: August 10, 2023 Patient Name: Scott Obregon : 1960 Age: 63 y.o. Scott Obregon is here for an anticoagulation follow-up visit. INR obtained via POC finger stick device. Anticoagulation Summary As of 08/10/2023 INR goal: 2.0-3.0 TTR: 91.0% (7.7 mo) INR used for dosin.3 (08/10/2023) Warfarin maintenance plan: 7.5 mg (5 mg x 1.5) every e, Elena, Sat; 5 mg (5 mg x 1) all other days Weekly warfarin total: 42.5 mg Plan last modified: Adilene Bryan [facility],PharmD (02/15/2023) Next INR check: 09/07/2023 Priority: Maintenance Target end date: Indefinite Indications Acute deep vein thrombosis (DVT) of axillary vein of left upper extremity (HCC) [I82.A12] Lab Results Component Value Date WBC 7.57 12/12/2022 HGB 11.9 (L) 12/12/2022 HCT 37.3 12/12/2022 MCV 92.1 12/12/2022 EXTMCV 86 11/19/2021 PLT 308 12/12/2022 RBC 4.05 12/12/2022 Lab Results Component Value Date CREATININE 0.78 01/25/2023 CREATININE 1.02 10/21/2021 Wt Readings from Last 3 Encounters: 04/24/23 63.5 kg (140 lb 1.6 oz) 04/10/23 64.2 kg (141 lb 8 oz) 01/25/23 65.5 kg (144 lb 4.8 oz) Ht Readings from Last 1 Encounters: 04/24/23 5' 11 Encounter Summary: ASSESSMENT: Patient Findings Negatives: Patient Reported Falls, Signs/symptoms of thrombosis, Signs/symptoms of bleeding, Laboratory test error suspected, Change in health, Change in alcohol use, Change in activity, Upcoming invasive procedure, Emergency department visit, Upcoming dental procedure, Missed doses, Extra doses, Change in medications, Change in diet/appetite, Hospital admission, Bruising, Other complaints Warfarin taken in the previous 7 days: 42.5 mg INR is therapeutic today at 2.3. Patient is feeling well today. She denies any changes or concerns at this time. The patient recites the correct warfarin doses and denies any missed or extra warfarindoses. The patient denies any medication changes, diet changes, health changes, or activity level changes. There are no noted changes in clinical status or labs or any known procedures or hospitalizat ions. The patient denies any alcohol, Tylenol, or cranberry intake. Therefore I recommend no changeto the patient's current warfarin dosing regimen. PLAN: Will continue weekly warfarin dose of 42.5 mg/week. Will check next INR in 4 weeks unless there are any changes before then. Encouraged patient to contact clinic with any changes. Michelle Littlejohn RPh,PharmD [facility] Dept: [phone] documented in this [id number] History of Present illness Narrative* Yfn Puckett Jr., DPM - 07/18/2023 9:28 AM EST Right-sided weakness. Patient is a pleasant 63-year-old female following up today on her PVRs and back radiographs. She still states that she is really having a hard time picking up her right foot that it feels quite weakand is causing some struggles with ambulation. Physical Vascular: DP PT pulses remain poorly palpable. CFT is fair no edema. Derm: Does have chronic dependent rubor no open wounds no ulcers no rashes. Neuro: Light touch is preserved medially less so laterally across the L4 and L5- S1 dermatome right foot left foot is substantially improved. Musculoskeletal: Moderate weakness to the right dorsiflexor he is approximately 2 out of 5 muscle strength. Plantar flexor strength is 5 out of 5 with no loss. PVRs and ABIs are triphasic. Radiographs of the spine reviewed Moderate to severe loss of disc height at L5-S1. Assessment and plan Patient is a pleasant 63-year-old female with tobacco induced arterial disease, and concern for right lower extremity radiculopathy. -Based on her plain film radiographs of her spine, I did add a neurosurgery consult with the hospitalist team including Dr. Khan to workup and evaluate for radiculopathy. Follow-up with me in the next 2 months to evaluate if surgery is not possible could consider a dorsiflexor assisted AFO though this patient is generally young well and still working. documented in this [id number] History of Present illness Narrative* Justine Hodges, [place],PharmD - 07/13/2023 8:20 AM EST Anticoagulation Progress Note Date of Visit: July 13, 2023 Patient Name: Scott Obregon : 1960 Age: 62 y.o. Scott Obregon is here for an anticoagulation follow-up visit. INR obtained via POC finger stick device. Anticoagulation Summary As of 07/13/2023 INR goal: 2.0-3.0 TTR: 89.8 % (6.8 mo) INR used for dosin.5 (07/13/2023) Warfarin maintenance plan: 7.5 mg (5 mg x 1.5) every Tue, Elena, Sat; 5 mg (5 mg x 1) all other days Weekly warfarin total: 42.5 mg Plan last modified: Adilene Bryan, [facility],PharmD (02/15/2023) Next INR check: 08/10/2023 Priority: Maintenance Target end date: Indefinite Indications Acute deep vein thrombosis (DVT) of axillary vein of left upper extremity (HCC) [I82.A12] Lab Results Component Value Date WBC 7.57 12/12/2022 HGB 11.9 (L) 12/12/2022 HCT 37.3 12/12/2022 MCV 92.1 12/12/2022 EXTMCV 86 11/19/2021 PLT 308 12/12/2022 RBC 4.05 12/12/2022 Lab Results Component Value Date CREATININE 0.78 01/25/2023 CREATININE 1.02 10/21/2021 Wt Readings from Last 3 Encounters: 04/24/23 63.5 kg (140 lb 1.6 oz) 04/10/23 64.2 kg (141 lb 8 oz) 01/25/23 65.5 kg (144 lb 4.8 oz) Ht Readings from Last 1 Encounters: 04/24/23 5' 11 Encounter Summary: ASSESSMENT: Patient Findings Negatives: Patient Reported Falls, Signs/symptoms of thrombosis, Signs/symptoms of bleeding, Laboratory test error suspected, Change in health, Change in alcohol use, Change in activity, Upcoming invasive procedure, Emergency department visit, Upcoming dental procedure, Missed doses, Extra doses, Change in medications, Change in diet/appetite, Hospital admission, Bruising, Other complaints Warfarin taken in the previous 7 days: 42.5 mg The patient presents to clinic today for anticoagulation clinic follow up. The patient was last seen on 06/07 at which time her INR was therapeutic and no change was made to her dose. Patient reports doing well today. Her INR is in range at 2.5. Patient denies any missed/extra doses, abnormal bruising/bleeding, falls, or upcoming procedures. Patient also denies any changes in medications, diet, alcohol, or exercise. The patient is able to accurately describe warfarin dose with no deviations. INR is therapeutic today. Will continue the same dose and reassess INR in 4 weeks. PLAN: Will continue weekly warfarin dose of 42.5 mg/week. Will check next INR in 4 weeks unless there are any changes before then. Encouraged patient to contact clinic with any changes. Justine Hodges RPh,PharmD [facility] Dept: [phone] documented in this [id number] History of Present illness Narrative* Yfn Puckett Jr., DPM - 07/04/2023 8:49 AM EST HPI Chief Complaint Patient presents with right foot pain Right foot pain+ loss of mobility. X 3-4 weeks. Patient is a pleasant 62-year-old female who comes in today with right foot and leg weakness and coldness in her feet. She has been a lifetime tobacco user now down to a 6 to 7 cigarettes/day which is good compared to previously being a pack-a-day smoker. States that the weakness has been going on her right foot she is starting to get what feels like foot drop. She is now having to use her thigh to picker tender her foot and ankle and really struggling to walk the way that she needs to. No trauma. Past Medical History: Diagnosis Date Acute appendicitis with localized peritonitis and gangrene, without perforation or abscess 09/15/2018 Anemia Appendicitis 2019 Arm DVT (deep venous thromboembolism), acute, left (HCC) 05/2022 Disease of thyroid gland Hypothyroidism Hyperlipidemia Hypertension borderline Right hip pain previous PCP said has inflammation had cortisone injection in past w/ no help Past Surgical History: Procedure Laterality Date APPENDECTOMY APPENDECTOMY LAPAROSCOPIC N/A 09/14/2018 Procedure: APPENDECTOMY LAPAROSCOPIC; Surgeon: Татьяна Jenkins MD; Location: Main OR; Service: General Surgery CV IR INTERVENTIONAL RADIOLOGY N/A 11/16/2022 Procedure: USg Biopsy of Left Axillary Lymph Node; Surgeon: Judd Allan MD; Location: IR LAB; Service: Interventional Radiology Social History Socioeconomic History Marital status: Tobacco Use Smoking status: Some Days Packs/day: 0.50 Years: 20.00 Additional pack years: 0.00 Total pack years: 10.00 Types: Cigarettes Start date: 05/05/1996 Smokeless tobacco: Never Tobacco comments: I am down to 4 cigerettes a day Vaping Use Vaping Use: Never used Substance and Sexual Activity Alcohol use: Not Currently Comment: Occassionally Drug use: No Sexual activity: Not Currently Partners: Male Social Determinants of Health Financial Resource Strain: Low Risk (11/28/2022) Overall Financial Resource Strain (CARDIA) Difficulty of Paying Living Expenses: Not hard at all Food Insecurity: No Food Insecurity (11/28/2022) Hunger Vital Sign Worried About Running Out of Food in the Last Year: Never true Ran Out of Food in the Last Year: Never true Transportation Needs: No Transportation Needs (11/28/2022) PRAPARE - Transportation Lack of Transportation (Medical): No Lack of Transportation (Non-Medical): No Social Connections: Unknown (05/12/2021) Social Connection and Isolation Panel [NHANES] Frequency of Communication with Friends and Family: Once a week Housing Stability: Unknown (05/12/2021) Housing Stability Vital Sign Unable to Pay for Housing in the Last Year: No Review of Systems Physical Exam Patient is AOx3. Linear and appropriate humor and thought process. Vascular: DP pulses and PT pulses are nonpalpable. CFT is fair with minimal edema. Does have dependent rubor present. Neuro: Light touch is generally preserved but dorsal laterally weekend in the light and. Babinski'sis normal. Musculoskeletal: Muscle strength is generally 5 out of 5 to the left ankle for all groups. Right leg however does have a new weak weakness across dorsiflexion and forced eversion. Plantarflexion is 4out of 5. Ankle subtalar midtarsal range of motion however full and pain-free without any clicking or catching passively. Impression/Plan Problem List Items Addressed This Visit None Visit Diagnoses Right-sided low back pain with right-sided sciatica, unspecified chronicity - Primary Relevant Orders XR Lumbar Spine 2-3 Views (Standard) Segmental Doppler Lower Extremity Arterial Idiopathic peripheral neuropathy Patient is a pleasant 62-year-old female with likely tobacco induced distal peripheral arterial disease as well as likely radiculopathy and right foot drop and weakness. To workup for vascular disease in light of her chronic tobacco use, did order PVRs and ABIs. Additionally for her foot drop and weakness, did get back x-rays likely need a back MRI and a Ortho consult and or back Ortho consult to evaluate for foot drop. Follow-up in 2 weeks on testing. documented in this [id number] History of Present illness Narrative* Arlette Fernandes - 06/07/2023 8:19 AM EST Anticoagulation Progress Note Date of Visit: June 07, 2023 Patient Name: Scott Obregon : 1960 Age: 62 y.o. Scott Obregon is here for an anticoagulation follow-up visit. INR obtained via POC finger stick device. Anticoagulation Summary As of 06/07/2023 INR goal: 2.0-3.0 TTR: 87.5 % (5.6 mo) INR used for dosin.1 (06/07/2023) Warfarin maintenance plan: 7.5 mg (5 mg x 1.5) every e, Elena, Sat; 5 mg (5 mg x 1) all other days Weekly warfarin total: 42.5 mg Plan last modified: Adilene Bryan, [facility],PharmD (02/15/2023) Next INR check: 07/13/2023 Priority: Maintenance Target end date: Indefinite Indications Acute deep vein thrombosis (DVT) of axillary vein of left upper extremity (HCC) [I82.A12] Lab Results Component Value Date WBC 7.57 12/12/2022 HGB 11.9 (L) 12/12/2022 HCT 37.3 12/12/2022 MCV 92.1 12/12/2022 EXTMCV 86 11/19/2021 PLT 308 12/12/2022 RBC 4.05 12/12/2022 Lab Results Component Value Date CREATININE 0.78 01/25/2023 CREATININE 1.02 10/21/2021 Wt Readings from Last 3 Encounters: 04/24/23 63.5 kg (140 lb 1.6 oz) 04/10/23 64.2 kg (141 lb 8 oz) 01/25/23 65.5 kg (144 lb 4.8 oz) Ht Readings from Last 1 Encounters: 04/24/23 5' 11 Encounter Summary: ASSESSMENT: Patient Findings Positives: Missed doses (missed 3 days around gonzalo 05/20, 05/21, and 05/22), Change in diet/appetite (patient has started to drink 1 bottle of boost every other day) Negatives: Patient Reported Falls, Signs/symptoms of thrombosis, Signs/symptoms of bleeding, Laboratory test error suspected, Change in health, Change in alcohol use, Change in activity, Upcoming invasive procedure, Emergency department visit, Upcoming dental procedure, Extra doses, Change in medications, Hospital admission, Bruising, Other complaints Today Scott Obregon a 62 y.o. female was seen at the [facility]. She is doing well and is able to correctly confirm the dose of warfarin, and denies any changes or concerns. Warfarin taken in the previous 7 days: 42.5 mg INR is therapeutic today at 2.1. Patient missed 3 doses around [place] due to running out of medication and not being able to contact doctor to get a refill for a few days. We informed the patient that the clinic is able to provide refills for her in the future. She also has started to drink boost around [place]. She is drinking one boost every other day and we encouraged her to stay consistent with that and try not to change the amount consumed. Since patient has the same INR as 5 weeks ago her dose is not being changed and she will come back in 5 more weeks. PLAN: Will continue weekly warfarin dose of 42.5 mg/week. Will check next INR in 5 weeks again unless there are any changes before then. Encouraged patient to contact clinic with any changes. [facility] Dept: [phone] Associated attestation - Adilene Bryan RPh, PharmD - 06/07/2023 8:30 AM EST IAdilene, attest that I was present during the patient encounter. I agree with the documentation, assessment, and plan outlined in the below documentation. documented in this [id number] History of Present illness Narrative* Adilene Bryan RPh,Alfredo - 05/03/2023 8:12 AM EST Anticoagulation Progress Note Date of Visit: May 03, 2023 Patient Name: Scott Obregon : 1960 Age: 62 y.o. Scott Obregon is here for an anticoagulation follow-up visit. INR obtained via POC finger stick device. Anticoagulation Summary As of 05/03/2023 INR goal: 2.0-3.0 TTR: 84.2 % (4.4 mo) INR used for dosin.1 (05/03/2023) Warfarin maintenance plan: 7.5 mg (5 mg x 1.5) every e, Elena, Sat; 5 mg (5 mg x 1) all other days Weekly warfarin total: 42.5 mg Plan last modified: Adilene Bryan RPh,PharmD (02/15/2023) Next INR check: 06/07/2023 Priority: Maintenance Target end date: Indefinite Indications Acute deep vein thrombosis (DVT) of axillary vein of left upper extremity (HCC) [I82.A12] Lab Results Component Value Date WBC 7.57 12/12/2022 HGB 11.9 (L) 12/12/2022 HCT 37.3 12/12/2022 MCV 92.1 12/12/2022 EXTMCV 86 11/19/2021 PLT 308 12/12/2022 RBC 4.05 12/12/2022 Lab Results Component Value Date CREATININE 0.78 01/25/2023 CREATININE 1.02 10/21/2021 Wt Readings from Last 3 Encounters: 04/24/23 63.5 kg (140 lb 1.6 oz) 04/10/23 64.2 kg (141 lb 8 oz) 01/25/23 65.5 kg (144 lb 4.8 oz) Ht Readings from Last 1 Encounters: 04/24/23 5' 11 Encounter Summary: ASSESSMENT: Patient Findings Negatives: Patient Reported Falls, Signs/symptoms of thrombosis, Signs/symptoms of bleeding, Laboratory test error suspected, Change in health, Change in alcohol use, Change in activity, Upcoming invasive procedure, Emergency department visit, Upcoming dental procedure, Missed doses, Extra doses, Change in medications, Change in diet/appetite, Hospital admission, Bruising, Other complaints Comments: Patient denies any changes or concerns. Warfarin taken in the previous 7 days: 42.5 mg INR is therapeutic at 2.1 today. Today Scott Obregon a 62 y.o. female was seen at the [facility]. She is able to correctly confirm the dose of warfarin, and denies any changes or concerns. INR is in range. Will continue with the same dose of warfarin for now, patient has been stable on this dose since Dec 2022. Will recheck in 5 weeks, will be 1 extra week due to the holiday. PLAN: Will continue weekly warfarin dose of 42.5 mg/week. Will check next INR in 5 weeks unless there are any changes before then. Encouraged patient to contact clinic with any changes. Adilene Bryan RPh,PharmD [facility] Dept: [phone] documented in this [id number] Instructions* Patient Instructions* Adilene Bryan RPh,PharmD - 05/03/2023 8:10 AM EST If you experience any of the following symptoms within 24 hours of your next appointment, or you have been in close contact with anyone confirmed or suspected to have coronavirus/COVID-19 in the past10 days please call us to reschedule at Dept: [phone]. Fever Cough Shortness of breath Difficulty breathing Chills Repeated shaking with chills Muscle pain Headache Sore throat Any loss of taste or smell Nausea, vomiting or diarrhea If you are screened positive for any of the above upon entering the building, please call us at Dept: [phone] for further instructions before you proceed to the clinic. Thank you for adhering to our precautions to keep our patients and providers safe! documented in this [id number] History of Present illness Narrative* Ying Quispe, - 04/24/2023 12:02 PM EST Images from the original note were not included. HPI 04/24/2023 stable on meds, stable on coumadin monthly. Appetite good eating well. Doing ct scan fordr. Bullock in August. Wants thyroid checked today. Still smoking . Dr. Bullock's note reviewed 04/10/2023 Lab Results Component Value Date ALBUMIN 2.5 (L) 01/25/2023 ALT 65 01/25/2023 AST 79 (H) 01/25/2023 BUN 13 01/25/2023 CALCIUM 8.6 01/25/2023 CL 104 01/25/2023 CHOL 99 (L) 01/25/2023 CREATININE 0.78 01/25/2023 GLU 100 05/31/2016 GLU 100 05/31/2016 GLUCOSE 92 01/25/2023 EXTGLUCOSE 110 10/21/2021 HDL 29 (L) 01/25/2023 HCT 37.3 12/12/2022 HGB 11.9 (L) 12/12/2022 HGBA1C 6.1 11/19/2021 LDL 175 05/31/2016 LDL 175 05/31/2016 PLT 308 12/12/2022 K 4.3 01/25/2023 NA 133 (L) 01/25/2023 TRIG 156 (H) 01/25/2023 WBC 7.57 12/12/2022 Vitals: 04/24/23 1126 BP: 110/68 Temp: 97.9 F (36.6 C) Pulse: 80 Resp: 16 PT WEIGHT Weight 04/24/2023 11:26 AM 140 lb 1.6 oz 04/10/2023 8:09 AM 141 lb 8 oz 01/25/2023 3:39 PM 144 lb 4.8 oz 12/12/2022 9:32 AM 148 lb BP Readings from Last 4 Encounters: 04/24/23 110/68 04/10/23 126/80 01/25/23 132/72 12/12/22 130/84 Past Medical History: Diagnosis Date Acute appendicitis with localized peritonitis and gangrene, without perforation or abscess 09/15/2018 Anemia Appendicitis 2019 Arm DVT (deep venous thromboembolism), acute, left (HCC) 05/2022 Disease of thyroid gland Hypothyroidism Hyperlipidemia Hypertension borderline Right hip pain previous PCP said has inflammation had cortisone injection in past w/ no help Past Surgical History: Procedure Laterality Date APPENDECTOMY APPENDECTOMY LAPAROSCOPIC N/A 09/14/2018 Procedure: APPENDECTOMY LAPAROSCOPIC; Surgeon: Татьяна Jenkins MD; Location: Main OR; Service: General Surgery CV IR INTERVENTIONAL RADIOLOGY N/A 11/16/2022 Procedure: USg Biopsy of Left Axillary Lymph Node; Surgeon: Judd Allan MD; Location: IR LAB; Service: Interventional Radiology Social History Socioeconomic History Marital status: Tobacco Use Smoking status: Some Days Packs/day: 0.50 Years: 20.00 Additional pack years: 0.00 Total pack years: 10.00 Types: Cigarettes Start date: 05/05/1996 Smokeless tobacco: Never Tobacco comments: I am down to 4 cigerettes a day Vaping Use Vaping Use: Never used Substance and Sexual Activity Alcohol use: Not Currently Comment: Occassionally Drug use: No Sexual activity: Not Currently Partners: Male Social Determinants of Health Financial Resource Strain: Low Risk (11/28/2022) Overall Financial Resource Strain (CARDIA) Difficulty of Paying Living Expenses: Not hard at all Food Insecurity: No Food Insecurity (11/28/2022) Hunger Vital Sign Worried About Running Out of Food in the Last Year: Never true Ran Out of Food in the Last Year: Never true Transportation Needs: No Transportation Needs (11/28/2022) PRAPARE - Transportation Lack of Transportation (Medical): No Lack of Transportation (Non-Medical): No Social Connections: Unknown (05/12/2021) Social Connection and Isolation Panel [NHANES] Frequency of Communication with Friends and Family: Once a week Housing Stability: Unknown (05/12/2021) Housing Stability Vital Sign Unable to Pay for Housing in the Last Year: No Family History Problem Relation Age of Onset Heart disease Father Hypertension Father Cancer Father colon Diabetes Father Heart disease Sister Diabetes Sister Hypertension Sister Thyroid disease Mother Kidney disease Mother Breast cancer Sister Thyroid disease Sister Current Outpatient Medications Medication Sig Dispense Refill levothyroxine (SYNTHROID, LEVOTHROID) 125 MCG tablet TAKE 1 TABLET BY MOUTH DAILY 90 tablet 3 levothyroxine (SYNTHROID, LEVOTHROID) 25 MCG tablet Take one tablet on Monday and Monday only inaddition to 125mcg dose. . 8 tablet 11 multivitamin (THERAGRAN) per tablet Take 1 (one) tablet by mouth daily . rosuvastatin (CRESTOR) 10 MG tablet Take 1 (one) tablet (10 mg total) by mouth daily . 30 tablet 11 warfarin (COUMADIN) 5 MG tablet Take 1 (one) tablet (5 mg total) by mouth every night at bedtime . 30 tablet 5 warfarin (COUMADIN) 7.5 MG tablet Take 1 (one) tablet (7.5 mg total) by mouth daily On Monday and Monday . No current facility-administered medications for this visit. PHQ-9 Depression Screening No documentation. Goals None Review of Systems Constitutional: Negative for chills and fatigue. HENT: Negative for mouth sores and sinus pressure. Eyes: Negative for pain and visual disturbance. Respiratory: Negative for cough and shortness of breath. Cardiovascular: Negative for chest pain and palpitations. Endocrine: Negative for polydipsia, polyphagia and polyuria. Genitourinary: Negative for dysuria and hematuria. Skin: Negative for rash. Neurological: Negative for dizziness and light-headedness. Hematological: Negative for adenopathy. Psychiatric/Behavioral: Negative for behavioral problems and self-injury. Physical Exam Vitals reviewed. Constitutional: General: She is not in acute distress. HENT: Right Ear: There is no impacted cerumen. Left Ear: There is impacted cerumen. Nose: No congestion. Eyes: Extraocular Movements: Extraocular movements intact. Pupils: Pupils are equal, round, and reactive to light. Cardiovascular: Rate and Rhythm: Normal rate and regular rhythm. Pulmonary: Effort: Pulmonary effort is normal. Breath sounds: Normal breath sounds. Skin: General: Skin is warm and dry. Neurological: Mental Status: She is alert and oriented to person, place, and time. Mental status is at baseline. Psychiatric: Mood and Affect: Mood normal. There are no diagnoses linked to this encounter. For any new medications prescribed today, patient was educated about indications for the medication, how to take the medication and potential side effects of the medications. documented in this [id number] History of Present illness Narrative* Michelle Littlejohn RPh,PharmKirk - 04/05/2023 8:19 AM EST I, Michelle Littlejohn, attest that I agree with the documentation, assessment, and plan outlined [facility]. * Justine Hodges RPhPharmKirk - 04/05/2023 8:14 AM EST Anticoagulation Progress Note Date of Visit: April 05, 2023 Patient Name: Scott Obregon : 1960 Age: 62 y.o. Scott Obregon is here for an anticoagulation follow-up visit. INR obtained via POC finger stick device. Anticoagulation Summary As of 04/05/2023 INR goal: 2.0-3.0 TTR: 80.0 % (3.5 mo) INR used for dosin.6 (04/05/2023) Warfarin maintenance plan: 7.5 mg (5 mg x 1.5) every e, Elena, Sat; 5 mg (5 mg x 1) all other days Weekly warfarin total: 42.5 mg Plan last modified: Adilene Bryan, [facility] [facility] (02/15/2023) Next INR check: 05/03/2023 Priority: Maintenance Target end date: Indefinite Indications Acute deep vein thrombosis (DVT) of axillary vein of left upper extremity (HCC) [I82.A12] Lab Results Component Value Date WBC 7.57 12/12/2022 HGB 11.9 (L) 12/12/2022 HCT 37.3 12/12/2022 MCV 92.1 12/12/2022 EXTMCV 86 11/19/2021 PLT 308 12/12/2022 RBC 4.05 12/12/2022 Lab Results Component Value Date CREATININE 0.78 01/25/2023 CREATININE 1.02 10/21/2021 Wt Readings from Last 3 Encounters: 01/25/23 65.5 kg (144 lb 4.8 oz) 12/12/22 67.1 kg (148 lb) 11/28/22 69.2 kg (152 lb 8 oz) Ht Readings from Last 1 Encounters: 01/25/23 5' 11 Encounter Summary: ASSESSMENT: Patient Findings Negatives: Patient Reported Falls, Signs/symptoms of thrombosis, Signs/symptoms of bleeding, Laboratory test error suspected, Change in health, Change in alcohol use, Change in activity, Upcoming invasive procedure, Emergency department visit, Upcoming dental procedure, Missed doses, Extra doses, Change in medications, Change in diet/appetite, Hospital admission, Bruising, Other complaints Warfarin taken in the previous 7 days: 42.5 mg The patient presents to clinic today for anticoagulation clinic follow up. The patient was last seen on 03/08 at which time her INR was therapeutic and no change was made to her dose. The patient's INR is within therapeutic range today at 2.6. Patient reports doing well today. She denies any missed/extra doses, abnormal bruising/bleeding, falls, or upcoming procedures. Patient also denies any changes in medications, diet, alcohol, or exercise. The patient is able to accurately describe warfarin dose with no deviations. INR is therapeutic today. Will continue her current dose of 42.5 mg/week and reassess INR in 4 weeks PLAN: Will continue weekly warfarin dose of 42.5 mg/week. Will check next INR in 4 weeks unless there are any changes before then. Encouraged patient to contact clinic with any changes. Justine Hodges RPh,PharmD [facility] Dept: [phone] documented in this [id number] History of Present illness Narrative* Michelle Littlejohn RPh,PharmD - 03/08/2023 8:04 AM EDT Anticoagulation Progress Note Date of Visit: March 08, 2023 Patient Name: Scott Obregon : 1960 Age: 62 y.o. Scott Obregon is here for an anticoagulation follow-up visit. INR obtained via POC finger stick device. Anticoagulation Summary As of 03/08/2023 INR goal: 2.0-3.0 TTR: 72.6 % (2.5 mo) INR used for dosin.6 (03/08/2023) Warfarin maintenance plan: 7.5 mg (5 mg x 1.5) every Tue, Elena, Sat; 5 mg (5 mg x 1) all other days Weekly warfarin total: 42.5 mg Plan last modified: Adilene Bryan RPh,PharmD (02/15/2023) Next INR check: 04/05/2023 Priority: Maintenance Target end date: Indefinite Indications Acute deep vein thrombosis (DVT) of axillary vein of left upper extremity (HCC) [I82.A12] Lab Results Component Value Date WBC 7.57 12/12/2022 HGB 11.9 (L) 12/12/2022 HCT 37.3 12/12/2022 MCV 92.1 12/12/2022 EXTMCV 86 11/19/2021 PLT 308 12/12/2022 RBC 4.05 12/12/2022 Lab Results Component Value Date CREATININE 0.78 01/25/2023 CREATININE 1.02 10/21/2021 Wt Readings from Last 3 Encounters: 01/25/23 65.5 kg (144 lb 4.8 oz) 12/12/22 67.1 kg (148 lb) 11/28/22 69.2 kg (152 lb 8 oz) Ht Readings from Last 1 Encounters: 01/25/23 5 Encounter Summary: ASSESSMENT: Patient Findings Positives: Missed doses (may have only taken 5 mg instead of 7.5 mg one day last week) Negatives: Patient Reported Falls, Signs/symptoms of thrombosis, Signs/symptoms of bleeding, Laboratory test error suspected, Change in health, Change in alcohol use, Change in activity, Upcoming invasive procedure, Emergency department visit, Upcoming dental procedure, Extra doses, Change in medications, Change in diet/appetite, Hospital admission, Bruising, Other complaints Warfarin taken in the previous 7 days: 40-42.5 mg. Patient is unsure whether or not she took 5 or 7.5 mg last . Usual dose is 42.5 mg/week. INR is therapeutic today. The patient recites the correct warfarin doses and denies any missed or extra warfarin doses, though may have accidentally taken a lower dose last . The patient denies any medication changes, diet changes, health changes, or activity level changes. There are no noted changes in clinical status or labs or any known procedures or hospitalizations. The patient denies any alcohol, Tylenol, or cranberry intake. Therefore I recommend no change to the patient's current warfarin dosing regimen. PLAN: Will continue weekly warfarin dose of 42.5 mg/week. Will check next INR in 4 weeks unless there are any changes before then. Encouraged patient to contact clinic with any changes. Michelle Littlejohn RPh,PharmD [facility] Dept: [phone] documented in this [id number] History of Present illness Narrative* Adilene Bryan RPh,PharmD - 02/15/2023 8:02 AM EDT Anticoagulation Progress Note Date of Visit: February 15, 2023 Patient Name: Scott Obregon : 1960 Age: 62 y.o. Scott Obregon is here for an anticoagulation follow-up visit. INR obtained via POC finger stick device. Anticoagulation Summary As of 02/15/2023 INR goal: 2.0-3.0 TTR: 62.2 % (1.8 mo) INR used for dosin.8 (02/15/2023) Warfarin maintenance plan: 7.5 mg (5 mg x 1.5) every Mon, Mon, Sat; 5 mg (5 mg x 1) all other days Weekly warfarin total: 42.5 mg Plan last modified: Adilene Bryan RPh,PharmD (02/15/2023) Next INR check: 03/08/2023 Priority: Maintenance Target end date: Indefinite Indications Acute deep vein thrombosis (DVT) of axillary vein of left upper extremity (HCC) [I82.A12] Lab Results Component Value Date WBC 7.57 12/12/2022 HGB 11.9 (L) 12/12/2022 HCT 37.3 12/12/2022 MCV 92.1 12/12/2022 EXTMCV 86 11/19/2021 PLT 308 12/12/2022 RBC 4.05 12/12/2022 Lab Results Component Value Date CREATININE 0.78 01/25/2023 CREATININE 1.02 10/21/2021 Wt Readings from Last 3 Encounters: 01/25/23 65.5 kg (144 lb 4.8 oz) 12/12/22 67.1 kg (148 lb) 11/28/22 69.2 kg (152 lb 8 oz) Ht Readings from Last 1 Encounters: 01/25/23 5' 11 Encounter Summary: ASSESSMENT: Patient Findings Negatives: Patient Reported Falls, Signs/symptoms of thrombosis, Signs/symptoms of bleeding, Laboratory test error suspected, Change in health, Change in alcohol use, Change in activity, Upcoming invasive procedure, Emergency department visit, Upcoming dental procedure, Missed doses, Extra doses, Change in medications, Change in diet/appetite, Hospital admission, Bruising, Other complaints Comments: Patient switched Sat and Sun doses. Same weekly dosing, just different days Warfarin taken in the previous 7 days: 42.5 mg INR is very close to what it has been the last couple visits. The INR is therapeutic at 2.8 today. Today Scott Obregon a 62 y.o. female was seen at the [facility]. She is able to correctly confirm the dose of warfarin, and denies any changes or concerns. She has been taking the 7.5mg on Monday, and Saturday. This is the same weekly dose, just Sat and Sun doses were switched. INR is in range. Will continue with the same dose of warfarin for now. Will recheck in 3 weeks. PLAN: Will continue weekly warfarin dose of 42.5 mg/week. Will check next INR in 3 weeks unless there are any changes before then. Encouraged patient to contact clinic with any changes. Adilene Bryan RPh,PharmD [facility] Dept: [phone] documented in this [id number] Instructions* Patient Instructions* Adilene Bryan RPh, PharmD - 02/15/2023 7:59 AM EDT If you experience any of the following symptoms within 24 hours of your next appointment, or you have been in close contact with anyone confirmed or suspected to have coronavirus/COVID-19 in the past10 days please call us to reschedule at Dept: [phone]. Fever Cough Shortness of breath Difficulty breathing Chills Repeated shaking with chills Muscle pain Headache Sore throat Any loss of taste or smell Nausea, vomiting or diarrhea If you are screened positive for any of the above upon entering the building, please call us at Dept: [phone] for further instructions before you proceed to the clinic. Thank you for adhering to our precautions to keep our patients and providers safe! documented in this [id number] History of Present illness Narrative* Michelle Littlejohn RPh,PharmD - 02/01/2023 8:03 AM EDT Anticoagulation Progress Note Date of Visit: February 01, 2023 Patient Name: Scott Obregon : 1960 Age: 62 y.o. Scott Obregon is here for an anticoagulation follow-up visit. INR obtained via POC finger stick device. Anticoagulation Summary As of 02/01/2023 INR goal: 2.0-3.0 TTR: 49.3 % (1.4 mo) INR used for dosin.9 (02/01/2023) Warfarin maintenance plan: 7.5 mg (5 mg x 1.5) every Mon, Mon, Mon; 5 mg (5 mg x 1) all other days Weekly warfarin total: 42.5 mg Plan last modified: Lavon Mcmullen, [facility],PharmD (01/16/2023) Next INR check: 02/15/2023 Priority: High Target end date: Indefinite Indications Acute deep vein thrombosis (DVT) of axillary vein of left upper extremity (HCC) [I82.A12] Lab Results Component Value Date WBC 7.57 12/12/2022 HGB 11.9 (L) 12/12/2022 HCT 37.3 12/12/2022 MCV 92.1 12/12/2022 EXTMCV 86 11/19/2021 PLT 308 12/12/2022 RBC 4.05 12/12/2022 Lab Results Component Value Date CREATININE 0.78 01/25/2023 CREATININE 1.02 10/21/2021 Wt Readings from Last 3 Encounters: 01/25/23 65.5 kg (144 lb 4.8 oz) 12/12/22 67.1 kg (148 lb) 11/28/22 69.2 kg (152 lb 8 oz) Ht Readings from Last 1 Encounters: 01/25/23 5' 11 Encounter Summary: ASSESSMENT: Patient Findings Positives: Change in medications (synthroid increased), Change in diet/appetite (more greens) Negatives: Patient Reported Falls, Signs/symptoms of thrombosis, Signs/symptoms of bleeding, Laboratory test error suspected, Change in health, Change in alcohol use, Change in activity, Upcoming invasive procedure, Emergency department visit, Upcoming dental procedure, Missed doses, Extra doses, Hospital admission, Bruising, Other complaints Warfarin taken in the previous 7 days: 42.5 mg INR is therapeutic today. The patient recites the correct warfarin doses and denies any missed or extra warfarin doses. The patient denies health changes or activity level changes. She does report a slight increase in her levothyroxine dose, but this is balanced by the fact that she is eating more greens. There are no noted changes in clinical status or labs or any known procedures or hospitalizations. The patient denies any alcohol, Tylenol, or cranberry intake. Therefore I recommend no changeto the patient's current warfarin dosing regimen. PLAN: Will continue weekly warfarin dose of 42.5 mg/week. Will check next INR in 2 weeks unless there are any changes before then. Encouraged patient to contact clinic with any changes. Michelle Littlejohn RPh,PharmD [facility] Dept: [phone] documented in this [id number] History of Present illness Narrative* Blomkest, Ying Sweeney, DO - 01/25/2023 4:07 PM EDT Images from the original note were not included. HPI 62 yo once stopped eliquis 1 month ago has veracious appetite now . Here to go over bp,thyroid dosing and cmp/lipids. Dr. Bullock note from 12/12/2022 below appreciated. Follows with dr. Bullock in March 2023. Shannon wants cmp to follow lft's to see if better of eliquis. Recommend : PET/ct scan Neurology evaluation MRI of the brain 10/25/2022 - Patient is noted to have unintentional weight loss - attributes to diet Reviewed pet/ct imaging - multiple sites of lymphadenopathy with low SUV activity. 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 Consistent with reactive process, report any new persistent or progressive symptoms or B symptoms Spontaneous upper extremity dvt / h/o Factor V Leiden mutation - d-dimer today Discussed at length the role of continuing anticoagulation given the above , discussed alternativesof anticoagulation with vitamin K antagonist D-dimer obtained after the visit is noted to be elevated , discussed risk for recurrent thrombosis , continue anticoagulation Myalgias - etiology unclear. Consider work-up for symptomatic disorder if myalgias persist despite switching to anticoagulation with vitamin K and agrees Vitals: 01/25/23 1539 BP: 132/72 Temp: 97.6 F (36.4 C) Pulse: 72 Resp: 18 SpO2: 99% PT WEIGHT Weight 01/25/2023 3:39 PM 144 lb 4.8 oz 12/12/2022 9:32 AM 148 lb 11/28/2022 4:12 PM 152 lb 8 oz 10/25/2022 10:32 AM 153 lb 4.8 oz BP Readings from Last 4 Encounters: 01/25/23 132/72 12/12/22 130/84 11/28/22 (!) 146/80 11/16/22 134/81 Past Medical History: Diagnosis Date Acute appendicitis with localized peritonitis and gangrene, without perforation or abscess 09/15/2018 Anemia Appendicitis 2019 Arm DVT (deep venous thromboembolism), acute, left (HCC) 05/2022 Disease of thyroid gland Hypothyroidism Hyperlipidemia Hypertension borderline Right hip pain previous PCP said has inflammation had cortisone injection in past w/ no help Past Surgical History: Procedure Laterality Date APPENDECTOMY APPENDECTOMY LAPAROSCOPIC N/A 09/14/2018 Procedure: APPENDECTOMY LAPAROSCOPIC; Surgeon: Татьяна Jenkins MD; Location: Main OR; Service: General Surgery CV IR INTERVENTIONAL RADIOLOGY N/A 11/16/2022 Procedure: USg Biopsy of Left Axillary Lymph Node; Surgeon: Judd Allan MD; Location: IR LAB; Service: Interventional Radiology Social History Socioeconomic History Marital status: Tobacco Use Smoking status: Some Days Packs/day: 0.50 Years: 20.00 Additional pack years: 0.00 Total pack years: 10.00 Types: Cigarettes Start date: 05/05/1996 Smokeless tobacco: Never Tobacco comments: I am down to 4 cigerettes a day Vaping Use Vaping Use: Never used Substance and Sexual Activity Alcohol use: Not Currently Comment: Occassionally Drug use: No Sexual activity: Not Currently Partners: Male Social Determinants of Health Financial Resource Strain: Low Risk (11/28/2022) Overall Financial Resource Strain (CARDIA) Difficulty of Paying Living Expenses: Not hard at all Food Insecurity: No Food Insecurity (11/28/2022) Hunger Vital Sign Worried About Running Out of Food in the Last Year: Never true Ran Out of Food in the Last Year: Never true Transportation Needs: No Transportation Needs (11/28/2022) PRAPARE - Transportation Lack of Transportation (Medical): No Lack of Transportation (Non-Medical): No Social Connections: Unknown (05/12/2021) Social Connection and Isolation Panel [NHANES] Frequency of Communication with Friends and Family: Once a week Housing Stability: Unknown (05/12/2021) Housing Stability Vital Sign Unable to Pay for Housing in the Last Year: No Family History Problem Relation Age of Onset Heart disease Father Hypertension Father Cancer Father colon Diabetes Father Heart disease Sister Diabetes Sister Hypertension Sister Thyroid disease Mother Kidney disease Mother Breast cancer Sister Thyroid disease Sister Current Outpatient Medications Medication Sig Dispense Refill levothyroxine (SYNTHROID, LEVOTHROID) 125 MCG tablet TAKE 1 TABLET BY MOUTH DAILY 90 tablet 3 multivitamin (THERAGRAN) per tablet Take 1 (one) tablet by mouth daily . rosuvastatin (CRESTOR) 10 MG tablet Take 1 (one) tablet (10 mg total) by mouth daily . 30 tablet 11 warfarin (COUMADIN) 5 MG tablet Take 1 (one) tablet (5 mg total) by mouth every night at bedtime . 30 tablet 5 No current facility-administered medications for this visit. PHQ-9 Depression Screening No documentation. Goals None Review of Systems Constitutional: Negative for chills and fatigue. HENT: Negative for mouth sores and sinus pressure. Eyes: Negative for pain and visual disturbance. Respiratory: Negative for cough and shortness of breath. Cardiovascular: Negative for chest pain and palpitations. Endocrine: Negative for polydipsia, polyphagia and polyuria. Genitourinary: Negative for dysuria and hematuria. Skin: Negative for rash. Neurological: Negative for dizziness and light-headedness. Hematological: Negative for adenopathy. Psychiatric/Behavioral: Negative for behavioral problems and self-injury. Physical Exam Constitutional: Appearance: She is well-developed. She is not ill-appearing. Comments: Thin HENT: Head: Normocephalic and atraumatic. Right Ear: Tympanic membrane, ear canal and external ear normal. Left Ear: Tympanic membrane, ear canal and external ear normal. Nose: Nose normal. Mouth/Throat: Mouth: Mucous membranes are moist. Pharynx: Oropharynx is clear. Eyes: Extraocular Movements: Extraocular movements intact. Conjunctiva/sclera: Conjunctivae normal. Pupils: Pupils are equal, round, and reactive to light. Cardiovascular: Rate and Rhythm: Normal rate and regular rhythm. Heart sounds: Normal heart sounds. No murmur heard. Pulmonary: Effort: Pulmonary effort is normal. Breath sounds: Normal breath sounds. No wheezing. Chest: Chest wall: No tenderness. Abdominal: Palpations: There is no mass. Tenderness: There is no rebound. Musculoskeletal: General: No tenderness or deformity. Cervical back: Normal range of motion and neck supple. Lymphadenopathy: Comments: No axillary nodes Skin: General: Skin is warm and dry. Neurological: Mental Status: She is alert and oriented to person, place, and time. Mental status is at baseline. Deep Tendon Reflexes: Reflexes are normal and symmetric. Psychiatric: Mood and Affect: Mood normal. Behavior: Behavior normal. Thought Content: Thought content normal. Judgment: Judgment normal. There are no diagnoses linked to this encounter. Diagnoses and all orders for this visit: Hypothyroidism, unspecified type - Comprehensive Metabolic Panel; Future - TSH with Reflex Free T4; Future Familial hypercholesteremia - Lipid Panel; Future Encounter for screening mammogram for malignant neoplasm of breast - Mammography Screening Jose Bilateral; Future For any new medications prescribed today, patient was educated about indications for the medication, how to take the medication and potential side effects of the medications. documented in this [id number] History of Present illness Narrative* Barbara Li - 01/16/2023 8:30 AM EDT Anticoagulation Progress Note Date of Visit: January 16, 2023 Patient Name: Scott Obregon : 1960 Age: 62 y.o. Scott Obregon is here for an anticoagulation follow-up visit. INR obtained via POC finger stick device. Anticoagulation Summary As of 01/16/2023 INR goal: 2.0-3.0 TTR: 16.8 % (3.6 wk) INR used for dosin.6 (01/16/2023) Warfarin maintenance plan: 7.5 mg (5 mg x 1.5) every Mon, Mon, Mon; 5 mg (5 mg x 1) all other days Weekly warfarin total: 42.5 mg Plan last modified: Lavon Mcmullen [facility],PharmD (01/16/2023) Next INR check: 01/23/2023 Priority: High Target end date: Indefinite Indications Acute deep vein thrombosis (DVT) of axillary vein of left upper extremity (HCC) [I82.A12] Lab Results Component Value Date WBC 7.57 12/12/2022 HGB 11.9 (L) 12/12/2022 HCT 37.3 12/12/2022 MCV 92.1 12/12/2022 EXTMCV 86 11/19/2021 PLT 308 12/12/2022 RBC 4.05 12/12/2022 Lab Results Component Value Date CREATININE 0.77 12/12/2022 CREATININE 1.02 10/21/2021 Wt Readings from Last 3 Encounters: 12/12/22 67.1 kg (148 lb) 11/28/22 69.2 kg (152 lb 8 oz) 10/25/22 69.5 kg (153 lb 4.8 oz) Ht Readings from Last 1 Encounters: 12/12/22 5' 11 Encounter Summary: ASSESSMENT: Patient Findings Negatives: Patient Reported Falls, Signs/symptoms of thrombosis, Signs/symptoms of bleeding, Laboratory test error suspected, Change in health, Change in alcohol use, Change in activity, Upcoming invasive procedure, Emergency department visit, Upcoming dental procedure, Missed doses, Extra doses, Change in medications, Change in diet/appetite, Hospital admission, Bruising, Other complaints Warfarin taken in the previous 7 days: 45 mg INR is therapeutic today at 2.6. Although patient is therapeutic today, her INR increased from 1.6 to 2.6 in a week, so it was decided to decrease her overall dose to 42.5 mg/week so that her INR does not continue to rise. The patient recites the correct warfarin doses and denies any missed or extra warfarin doses. The patient denies any medication changes, diet changes, health changes, or activity level changes. Thereare no noted changes in clinical status or labs or any known procedures or hospitalizations. The patient denies any alcohol, Tylenol, or cranberry intake. PLAN: Will decrease weekly warfarin dose to 42.5 mg/week. This is an approximate 5% change from previous maintenance dosing regimen. . Will check next INR in 1 week unless there are any changes before then. Encouraged patient to contact clinic with any changes. [facility] Dept: [phone] Associated attestation - Lavon Mcmullen RPh, PharmD - 01/16/2023 8:34 AM EDT I, Lavon Mcmullen, attest that I was present during the patient encounter. I agree with the documentation, assessment, and plan outlined in the below documentation. documented in this [id number] History of Present illness Narrative* Adilene Bryan RPh,Alfredo - 01/09/2023 8:13 AM EDT I attest that I was present during the patient encounter and I agree with the assessment and plan outlined below. * Jen, Barbara - 01/09/2023 8:05 AM EDT Images from the original note were not included. Anticoagulation Progress Note Date of Visit: January 09, 2023 Patient Name: Scott Obregon : 1960 Age: 62 y.o. Scott Obregon is here for an anticoagulation follow-up visit. INR obtained via POC finger stick device. Anticoagulation Summary As of 01/09/2023 INR goal: 2.0-3.0 TTR: 0.0 % (2.6 wk) INR used for dosin.6 (01/09/2023) Warfarin maintenance plan: 5 mg (5 mg x 1) every Mon, Wed, Fri; 7.5 mg (5 mg x 1.5) all other days Weekly warfarin total: 45 mg Plan last modified: Adilene Bryan RPh,PharmD (01/09/2023) Next INR check: 01/16/2023 Priority: High Target end date: Indefinite Indications Acute deep vein thrombosis (DVT) of axillary vein of left upper extremity (HCC) [I82.A12] Lab Results Component Value Date WBC 7.57 12/12/2022 HGB 11.9 (L) 12/12/2022 HCT 37.3 12/12/2022 MCV 92.1 12/12/2022 EXTMCV 86 11/19/2021 PLT 308 12/12/2022 RBC 4.05 12/12/2022 Lab Results Component Value Date CREATININE 0.77 12/12/2022 CREATININE 1.02 10/21/2021 Wt Readings from Last 3 Encounters: 12/12/22 67.1 kg (148 lb) 11/28/22 69.2 kg (152 lb 8 oz) 10/25/22 69.5 kg (153 lb 4.8 oz) Ht Readings from Last 1 Encounters: 12/12/22 5' 11 Encounter Summary: ASSESSMENT: Patient Findings Positives: Change in diet/appetite (eating more tomatoes and peppers, due to having garden) Negatives: Patient Reported Falls, Signs/symptoms of thrombosis, Signs/symptoms of bleeding, Laboratory test error suspected, Change in health, Change in alcohol use, Change in activity, Upcoming invasive procedure, Emergency department visit, Upcoming dental procedure, Missed doses, Extra doses, Change in medications, Hospital admission, Bruising, Other complaints Warfarin taken in the previous 7 days: 40 mg INR is subtherapeutic today at 1.6. This is secondary to patient is new to warfarin and we are still trying to find the patient's weekly warfarin dose. Patient denies any missed doses, changes in vitamin K intake, changes in MVI, or start of any protein or nutrition shakes such as Boost or Ensure. PLAN: Will increase weekly warfarin dose to 45 mg/week. This is an approximate 12% change from previous maintenance dosing regimen. . Will check next INR in 1 week unless there are any changes before then. Encouraged patient to contact clinic with any changes. [facility] Dept: [phone] documented in this [id number] Instructions* Patient Instructions* Adilene Bryan RPh,PharmD - 01/09/2023 8:01 AM EDT If you experience any of the following symptoms within 24 hours of your next appointment, or you have been in close contact with anyone confirmed or suspected to have coronavirus/COVID-19 in the past10 days please call us to reschedule at Dept: [phone]. Fever Cough Shortness of breath Difficulty breathing Chills Repeated shaking with chills Muscle pain Headache Sore throat Any loss of taste or smell Nausea, vomiting or diarrhea If you are screened positive for any of the above upon entering the building, please call us at Dept: [phone] for further instructions before you proceed to the clinic. Thank you for adhering to our precautions to keep our patients and providers safe! documented in this [id number] History of Present illness Narrative* Michelle Littlejohn RPh,PharmKirk - 01/02/2023 7:37 AM EDT Images from the original note were not included. Anticoagulation Progress Note Date of Visit: January 02, 2023 Patient Name: Scott Obregon : 1960 Age: 62 y.o. Scott Obregon is here for an anticoagulation follow-up visit. INR obtained via POC finger stick device. Anticoagulation Summary As of 01/02/2023 INR goal: 2.0-3.0 TTR: 0.0 % (1.6 wk) INR used for dosin.4 (01/02/2023) Warfarin maintenance plan: 5 mg (5 mg x 1) every day Weekly warfarin total: 35 mg Plan last modified: Michelle Littlejohn RPh,PharmD (12/19/2022) Next INR check: 01/09/2023 Priority: High Target end date: Indefinite Indications Acute deep vein thrombosis (DVT) of axillary vein of left upper extremity (HCC) [I82.A12] Lab Results Component Value Date WBC 7.57 12/12/2022 HGB 11.9 (L) 12/12/2022 HCT 37.3 12/12/2022 MCV 92.1 12/12/2022 EXTMCV 86 11/19/2021 PLT 308 12/12/2022 RBC 4.05 12/12/2022 Lab Results Component Value Date CREATININE 0.77 12/12/2022 CREATININE 1.02 10/21/2021 Wt Readings from Last 3 Encounters: 12/12/22 67.1 kg (148 lb) 11/28/22 69.2 kg (152 lb 8 oz) 10/25/22 69.5 kg (153 lb 4.8 oz) Ht Readings from Last 1 Encounters: 12/12/22 5' 11 Encounter Summary: ASSESSMENT: Patient Findings Positives: Change in medications (found a mvi with no vit k) Negatives: Patient Reported Falls, Signs/symptoms of thrombosis, Signs/symptoms of bleeding, Laboratory test error suspected, Change in health, Change in alcohol use, Change in activity, Upcoming invasive procedure, Emergency department visit, Upcoming dental procedure, Missed doses, Extra doses, Change in diet/appetite, Hospital admission, Bruising, Other complaints Warfarin taken in the previous 7 days: 35 mg INR is subtherapeutic today. This is secondary to patient is new to warfarin and we are still trying to find the patient's weekly warfarin dose. Patient denies any missed doses, changes in vitamin K intake, changes in MVI, or start of any protein or nutrition shakes such as Boost or Ensure. PLAN: Will boost tonight's dose to 10 mg, then resume dose of 5 mg daily for a total of 40 mg this week. This is about 14% more than what she has been taking. Will check next INR in 1 week unless there are any changes before then. Encouraged patient to contact clinic with any changes. Michelle Littlejohn RPh,PharmD [facility] Dept: [phone] documented in this [id number] History of Present illness Narrative* Adilene Bryan RPh,PharmD - 12/26/2022 8:13 AM EDT Images from the original note were not included. Anticoagulation Progress Note Date of Visit: December 26, 2022 Patient Name: Scott Obregon : 1960 Age: 62 y.o. Scott Obregon is here for an anticoagulation follow-up visit. INR obtained via POC finger stick device. Anticoagulation Summary As of 12/26/2022 INR goal: 2.0-3.0 TTR: 0.0 % (4 d) INR used for dosin.9 (12/26/2022) Warfarin maintenance plan: 5 mg (5 mg x 1) every day Weekly warfarin total: 35 mg Plan last modified: Michelle Littlejohn, [facility],PharmD (12/19/2022) Next INR check: 01/02/2023 Priority: High Target end date: Indefinite Indications Acute deep vein thrombosis (DVT) of axillary vein of left upper extremity (HCC) [I82.A12] Lab Results Component Value Date WBC 7.57 12/12/2022 HGB 11.9 (L) 12/12/2022 HCT 37.3 12/12/2022 MCV 92.1 12/12/2022 EXTMCV 86 11/19/2021 PLT 308 12/12/2022 RBC 4.05 12/12/2022 Lab Results Component Value Date CREATININE 0.77 12/12/2022 CREATININE 1.02 10/21/2021 Wt Readings from Last 3 Encounters: 12/12/22 67.1 kg (148 lb) 11/28/22 69.2 kg (152 lb 8 oz) 10/25/22 69.5 kg (153 lb 4.8 oz) Ht Readings from Last 1 Encounters: 12/12/22 5' 11 Encounter Summary: ASSESSMENT: Patient Findings Positives: Change in diet/appetite (trying to eat greens once a week) Negatives: Patient Reported Falls, Signs/symptoms of thrombosis, Signs/symptoms of bleeding, Laboratory test error suspected, Change in health, Change in alcohol use, Change in activity, Upcoming invasive procedure, Emergency department visit, Upcoming dental procedure, Missed doses, Extra doses, Change in medications, Hospital admission, Bruising, Other complaints Warfarin taken in the previous 7 days: 35 mg INR is subtherapeutic at 1.9 today. This is secondary to patient is new to warfarin and we are still trying to find the patient's weekly warfarin dose. Today Scott Obregon a 62 y.o. female was seen at the [facility]. She confirmed the dose of warfarin. She is trying to eat greens once a week. INR has increased and is just below the range. Will continue with the same dose of warfarin, expect INR to continue to increase.Will recheck in another week. PLAN: Will continue weekly warfarin dose of 35 mg/week. Will check next INR in 1 week unless there are any changes before then. Encouraged patient to contact clinic with any changes. Adilene Bryan RPh,PharmD [facility] Dept: [phone] documented in this [id number] Instructions* Patient Instructions* Adilene Bryan RPh, PharmD - 12/26/2022 8:11 AM EDT If you experience any of the following symptoms within 24 hours of your next appointment, or you have been in close contact with anyone confirmed or suspected to have coronavirus/COVID-19 in the past10 days please call us to reschedule at Dept: [phone]. Fever Cough Shortness of breath Difficulty breathing Chills Repeated shaking with chills Muscle pain Headache Sore throat Any loss of taste or smell Nausea, vomiting or diarrhea If you are screened positive for any of the above upon entering the building, please call us at Dept: [phone] for further instructions before you proceed to the clinic. Thank you for adhering to our precautions to keep our patients and providers safe! documented in this [id number] History of Present illness Narrative* Michelle Littlejohn RPh,Alfredo - 12/19/2022 8:13 AM EDT Images from the original note were not included. Anticoagulation Intake Note Date of Visit: December 19, 2022 Patient Name: Scott Obregon : 1960 Age: 62 y.o. Scott Obregon is here for an anticoagulation intake visit. INR obtained via POC finger stick device. It was discussed that this clinic is managed by a team of licensed clinical pharmacists. The patient provided consent to be seen by a pharmacist for their anticoagulation care. The patient is aware that they can withdraw from these services at any time. Anticoagulation Summary As of 12/19/2022 INR goal: 2.0-3.0 TTR: -- INR used for dosin.3 (12/19/2022) Warfarin maintenance plan: 5 mg (5 mg x 1) every day Weekly warfarin total: 35 mg Plan last modified: Michelle Littlejohn, RPh,PharmD (12/19/2022) Next INR check: 12/26/2022 Priority: High Target end date: Indefinite Indications Acute deep vein thrombosis (DVT) of axillary vein of left upper extremity (HCC) [I82.A12] Lab Results Component Value Date WBC 7.57 12/12/2022 HGB 11.9 (L) 12/12/2022 HCT 37.3 12/12/2022 MCV 92.1 12/12/2022 EXTMCV 86 11/19/2021 PLT 308 12/12/2022 RBC 4.05 12/12/2022 Lab Results Component Value Date CREATININE 0.77 12/12/2022 CREATININE 1.02 10/21/2021 Wt Readings from Last 3 Encounters: 12/12/22 67.1 kg (148 lb) 11/28/22 69.2 kg (152 lb 8 oz) 10/25/22 69.5 kg (153 lb 4.8 oz) Ht Readings from Last 1 Encounters: 12/12/22 5' 11 Encounter Summary: ASSESSMENT: Scott Obregon is new to our [facility] anticoagulation clinic. Indication for warfarin therapyis DVT. Patient had an unprovoked DVT of her axillary vein in her left arm about 6 months ago. At that time she was started on Eliquis, but requested to switch to warfarin last week due to side effects. She states that ever since starting Eliquis, she has had decreased appetite resulting in significant weight loss, decreased muscle mass, and elevated LFT's. She noticed that Eliquis was the culprit when she had to stop it temporarily and the symptoms subsided. Duration of therapy is expected to be indefinite. Patient Findings Negatives: Patient Reported Falls, Signs/symptoms of thrombosis, Signs/symptoms of bleeding, Laboratory test error suspected, Change in health, Change in alcohol use, Change in activity, Upcoming invasive procedure, Emergency department visit, Upcoming dental procedure, Missed doses, Extra doses, Change in medications, Change in diet/appetite, Hospital admission, Bruising, Other complaints The patient/caregiver was provided a warfarin education packet, a vitamin K education sheet, and was counseled on the education points listed below: 1. Indication of warfarin: yes-DVT 2. Definition of anticoagulation 3. International Normalized Ration (INR) and therapeutic goal: 2.0-3.0 4. Frequency of clinic visits, lab tests, and compliance with visits-more frequent at first, then gradually increasing interval 5. Adverse effects from warfarin therapy, self-monitoring for signs of bleeding, clotting risks 6. Importance of informing all healthcare providers (dentists, other physicians, pharmacists) of warfarin therapy 7. Use of pill box to keep track of warfarin doses: not currently using one, but provided her with one during visit 8. Recommended obtaining a medical alert tag/bracelet for anticoagulation 9. Consistency in vitamin K-patient does eat a lot of vegetables, particularly broccoli and cabbagefrom the garden. She plans to try to eat each of these things about once per week as she likes to vary her vegetables from day to day. 10. What to do if patient misses a dose of warfarin-explained, patient takes warfarin at bedtime 11. Effect of EtOH/smoking on INR: patient does not drink, but does currently smoke 12. Importance of informing pharmacist of upcoming procedures 13. Warfarin tablet strengths and colors: 5 mg = peach 14. Common drug interactions and the importance of informing pharmacist of any changes, additions, or deletions of medications 15. Common OTC medications/products that can interact with warfarin including ASA, NSAIDS, APAP-patient has been taking an OTC multivitamin but may be switching brands. Does currently use APAP for pain but may take an occasional dose of ibuprofen prn 16. Patient agreement reviewed and signed: yes Medications and allergies reviewed and updated during encounter. Learning Assessment: The learner verbalized understanding of the education provided. The learner appears eager to receive the education. Barriers to education include: none noted. All questions answered at this time. The patient is new to warfarin and started on 5 mg daily on 12/16 (Monday) . She has had 3 doses thus far (15 mg total) INR is subtherapeutic today. This is secondary to patient is new to warfarin and we are still trying to find the patient's weekly warfarin dose. PLAN: Will continue current dose of 5 mg daily for now to allow more time for INR to increase. Will check next INR in 1 week unless there are any changes before then. Offered to check at the endof this week, but patient is unable due to work schedule. Encouraged patient to contact clinic with any changes. Michelle Littlejohn RPh,PharmD [facility] Dept: [phone] documented in this [id number] History of Present illness Narrative* Lita Gu MD - 12/12/2022 9:39 AM EDT Clinic follow up note PATIENT: Scott Obregon : 1960 AGE: 62 y.o. SEX: female RACE: [1] PCP: Ying Quispe DO REFERRAL: No ref. provider found HPI Patient reports having decreased appetite and myalgias when she held one dose of the eliquis wilfredo daily basis. Patient is back on the twice daily dose . Patient has significant concerns about being on vitamin K antagonist , secondary to eating lots of greens. Is scheduled to undergo a dental extraction later this week, eliquis to be held for 24 hrs prior to the procedure. HEMATOLOGIC HX Patient reports being relatively healthy until May 2022 when she noted some discoloration of the hands with bluish discoloration and she was started on nifedipine. She subsequentlydeveloped worsening pain and swelling in the left arm that caused her to seek medical attention andwas demonstrated to have acute dvt involving the left arm. She has been on apixaban , swelling is johansen bsiding. 09/06/2022 - Doppler of the left upper arm - No evidence of deep vein thrombosis in the left subclavian and axillary veins, demonstrating complete resolution of previous thrombus 09/20/2022 - ct lung cancer screening - Centrilobular and paraseptal emphysema. Noncalcified nodules within the chest with measurements given in the body of the report. The largest nodule is a 0.8 cmnoncalcified pleural based nodular density posterior right upper chest (series 2, image 57).A low-dose CT examination of the chest in 3 months is recommended. There are numerous bilateral axillary lymph nodes, several of which are prominent, largest measuring 1.3 x 1.1 cm within the right axilla and 1.3 x 1.1 cm, 1.5 x 1.1 cm and 1.7 x 1.2 cm within the left axilla. An ultrasound examination of the bilateral axilla recommended.There is a 1.6 cm left adrenal nodule measuring 10 Hounsfield units suggesting that this may represent an adrenal adenoma. Multi- vessel coronary artery calcifications. Additional findings of atherosclerotic disease as described in the body of the report. ALLERGIES Allergies Allergen Reactions Iodine And Iodide Containing Products Rash and GI Intolerance Seafood, Vomiting MEDS has a current medication list which includes the following prescription(s): apixaban, levothyroxine, multivitamin, and rosuvastatin. PMH/PSH Past Medical History: Diagnosis Date Acute appendicitis with localized peritonitis and gangrene, without perforation or abscess 09/15/2018 Anemia Appendicitis 2019 Arm DVT (deep venous thromboembolism), acute, left (HCC) 05/2022 Disease of thyroid gland Hypothyroidism Hyperlipidemia Hypertension borderline Right hip pain previous PCP said has inflammation had cortisone injection in past w/ no help Past Surgical History: Procedure Laterality Date APPENDECTOMY APPENDECTOMY LAPAROSCOPIC N/A 09/14/2018 Procedure: APPENDECTOMY LAPAROSCOPIC; Surgeon: Татьяна Jenkins MD; Location: Main OR; Service: General Surgery CV IR INTERVENTIONAL RADIOLOGY N/A 11/16/2022 Procedure: USg Biopsy of Left Axillary Lymph Node; Surgeon: Judd Allan MD; Location: IR LAB; Service: Interventional Radiology FH Family History Problem Relation Age of Onset Heart disease Father Hypertension Father Cancer Father colon Diabetes Father Heart disease Sister Diabetes Sister Hypertension Sister Thyroid disease Mother Kidney disease Mother Breast cancer Sister Thyroid disease Sister SH Social History Socioeconomic History Marital status: Tobacco Use Smoking status: Some Days Packs/day: 0.50 Years: 20.00 Total pack years: 10.00 Types: Cigarettes Start date: 05/05/1996 Smokeless tobacco: Never Tobacco comments: I am down to 4 cigerettes a day Vaping Use Vaping Use: Never used Substance and Sexual Activity Alcohol use: Not Currently Comment: Occassionally Drug use: No Sexual activity: Not Currently Partners: Male Social Determinants of Health Financial Resource Strain: Low Risk (11/28/2022) Overall Financial Resource Strain (CARDIA) Difficulty of Paying Living Expenses: Not hard at all Food Insecurity: No Food Insecurity (11/28/2022) Hunger Vital Sign Worried About Running Out of Food in the Last Year: Never true Ran Out of Food in the Last Year: Never true Transportation Needs: No Transportation Needs (11/28/2022) PRAPARE - Transportation Lack of Transportation (Medical): No Lack of Transportation (Non-Medical): No Social Connections: Unknown (05/12/2021) Social Connection and Isolation Panel [NHANES] Frequency of Communication with Friends and Family: Once a week Housing Stability: Unknown (05/12/2021) Housing Stability Vital Sign Unable to Pay for Housing in the Last Year: No ROS Review of Systems Constitutional: Negative for appetite change, chills, diaphoresis, fatigue, fever and unexpected weight change. HENT: Negative for hearing loss, lump/mass, mouth sores, nosebleeds, sore throat, tinnitus, troubleswallowing and voice change. Eyes: Negative for eye problems, icterus and visual disturbance. Respiratory: Negative for apnea, chest tightness, cough, hemoptysis, shortness of breath and wheezing. Cardiovascular: Negative for chest pain, leg swelling and palpitations. Gastrointestinal: Negative for abdominal distention, abdominal pain, blood in stool, constipation, diarrhea, dyspepsia, nausea, rectal pain and vomiting. Endocrine: Negative for hot flashes. Genitourinary: Negative for bladder incontinence, difficulty urinating, dyspareunia, dysuria, enuresis, frequency, hematuria, menstrual problem, nocturia, pelvic pain, urgency, vaginal bleeding, vaginal discharge and vaginal pain. Musculoskeletal: Negative for arthralgias, back pain, bone pain, flank pain, gait problem, myalgias, muscle weakness, neck pain and neck stiffness. Skin: Negative for itching, pruritus, rash, ulcers and wound. Neurological: Negative for dizziness, extremity weakness, gait problem, headaches, light-headedness, numbness, seizures and speech difficulty. Hematological: Negative for adenopathy. Does not bruise/bleed easily. Psychiatric/Behavioral: Negative for confusion, decreased concentration, depression, sleep disturbance and suicidal ideas. The patient is not nervous/anxious. EXAM BP 130/84 (BP Location: Right arm) Pulse 93 Temp 98.1 F (36.7 C) (Oral) Ht 5' 11 Wt 67.1 kg (148 lb) SpO2 97% BMI 20.64 kg/m Physical Exam Constitutional: Appearance: She is well-developed. HENT: Head: Normocephalic and atraumatic. Eyes: Conjunctiva/sclera: Conjunctivae normal. Pupils: Pupils are equal, round, and reactive to light. Neck: Trachea: No tracheal deviation. Comments: Axillary lymph nodes not palpable Cardiovascular: Rate and Rhythm: Normal rate and regular rhythm. Heart sounds: Normal heart sounds. Pulmonary: Effort: Pulmonary effort is normal. Breath sounds: Normal breath sounds. Abdominal: General: Bowel sounds are normal. Palpations: Abdomen is soft. Musculoskeletal: General: Normal range of motion. Cervical back: Normal range of motion and neck supple. Lymphadenopathy: Cervical: No cervical adenopathy. Skin: General: Skin is warm and dry. Neurological: Mental Status: She is alert and oriented to person, place, and time. Deep Tendon Reflexes: Reflexes are normal and symmetric. Comments: Power 5/5 bilateral upper extremities LABS / IMAGING Reviewed recent imaging and labs , imaging and labs from 09/15/2022 IMPRESSION 61-year-old female with recent onset unprovoked thrombosis of the left upper extremity, noted to be positive for heterozygous factor V Leiden mutation. ASSESSMENT / PLAN Spontaneous dvt of the left upper extremity / factor V Leiden mutation - on anticoagulation with Eliquis. Reviewed the recent doppler , d-dimer persistently elevated Transaminitis, rule out drug-induced Reviewed recent findings on the low-dose CT imaging, noted bilateral axillary adenopathy, given symptomatology, transaminitis, recommend PET/CT imaging to assess PET activity of the lymph nodes and plan biopsy accordingly. Recommend : PET/ct scan Neurology evaluation MRI of the brain 10/25/2022 - Patient is noted to have unintentional weight loss - attributes to diet Reviewed pet/ct imaging - multiple sites of lymphadenopathy with low SUV activity. 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 Consistent with reactive process, report any new persistent or progressive symptoms or B symptoms Spontaneous upper extremity dvt / h/o Factor V Leiden mutation - d-dimer today Discussed at length the role of continuing anticoagulation given the above , discussed alternativesof anticoagulation with vitamin K antagonist D-dimer obtained after the visit is noted to be elevated , discussed risk for recurrent thrombosis , continue anticoagulation Myalgias - etiology unclear. Consider work-up for symptomatic disorder if myalgias persist despite switching to anticoagulation with vitamin K and agrees Thank you for the privilege of allowing me to participate in the care of Scott Singh NascimentoObregon. LITA GU MD Template Design [employer] documented in this [id number] History of Present illness Narrative* Ying Quispe, - 11/28/2022 4:44 PM EDT Images from the original note were not included. HPI Here to go over below. 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 Was starting to increase wt when off work but since back to work wt loss stabilized , appetitie is ok, following up with Dr. Bullock December 12, here 11/28/2022. Gets chills last night and sweated Ben night with runny nose. The 10-year ASCVD risk score (Mila DK, et al., 2019) is: 11.5% Values used to calculate the score: Age: 62 years Sex: Female Is Non- : No Diabetic: No Tobacco smoker: Yes Systolic Blood Pressure: 146 mmHg Is BP treated: No HDL Cholesterol: 37 mg/dL Total Cholesterol: 202 mg/dL IMPRESSION: 1. Bilateral multiple axillary nodes with variable degree of FDG uptake, as detailed. Underlying neoplastic process is not excluded. Likewise, neck nodes with mild FDG uptake, as detailed. Nonspecific, might represent reactive process although underlying low-grade neoplastic process is not entirelyexcluded. 2. Hazy opacifications in the bilateral lower lungs diffuse mild FDG uptake, likely inflammatory/infectious process. Emphysema. This dictation was created with voice recognition software. While attempts have been made to reviewthe dictation as it is transcribed, on occasion the spoken word can be misinterpreted by the technology leading to omissions or inappropriate words, phrases or sentences. Dr. Bullock's impression below from 09/27/2022. Spontaneous dvt of the left upper extremity / factor V Leiden mutation - on anticoagulation with Eliquis. Reviewed the recent doppler , d-dimer persistently elevated Transaminitis, rule out drug-induced Reviewed recent findings on the low-dose CT imaging, noted bilateral axillary adenopathy, given symptomatology, transaminitis, recommend PET/CT imaging to assess PET activity of the lymph nodes and plan biopsy accordingly. Recommend Recommend: PET/ct scan Neurology evaluation MRI of the brain 10/25/[address] Bullock below. PLAN Spontaneous dvt of the left upper extremity / factor V Leiden mutation - on anticoagulation with Eliquis. Reviewed the recent doppler , d-dimer persistently elevated Transaminitis, rule out drug-induced Reviewed recent findings on the low-dose CT imaging, noted bilateral axillary adenopathy, given symptomatology, transaminitis, recommend PET/CT imaging to assess PET activity of the lymph nodes and plan biopsy accordingly. Recommend : PET/ct scan Neurology evaluation MRI of the brain 10/25/2022 - Patient is noted to have unintentional weight loss - attributes to diet Reviewed pet/ct imaging - multiple sites of lymphadenopathy with low SUV activity. R/o low grade lymphoproliferative disorder/ inflammatory etiology Rtc after completion of above H/o Heterozygous Factor V mutation / spontaneous upper extremity dvt - on eliquis Vitals: 11/28/22 1612 11/28/22 1659 BP: (!) 148/80 (!) 146/80 Temp: 98.3 F (36.8 C) Pulse: 92 Resp: (!) 20 SpO2: 99% PT WEIGHT Weight 11/28/2022 4:12 PM 152 lb 8 oz 10/25/2022 10:32 AM 153 lb 4.8 oz 09/27/2022 9:03 AM 163 lb 9.6 oz 09/20/2022 11:23 AM 163 lb 12.8 oz BP Readings from Last 4 Encounters: 11/28/22 (!) 146/80 11/16/22 134/81 10/25/22 137/78 09/27/22 (!) 144/84 Past Medical History: Diagnosis Date Acute appendicitis with localized peritonitis and gangrene, without perforation or abscess 09/15/2018 Anemia Appendicitis 2019 Arm DVT (deep venous thromboembolism), acute, left (HCC) 05/2022 Disease of thyroid gland Hypothyroidism Hyperlipidemia Hypertension borderline Right hip pain previous PCP said has inflammation had cortisone injection in past w/ no help Past Surgical History: Procedure Laterality Date APPENDECTOMY APPENDECTOMY LAPAROSCOPIC N/A 09/14/2018 Procedure: APPENDECTOMY LAPAROSCOPIC; Surgeon: Татьяна Jenkins MD; Location: [facility]; Service: General Surgery CV IR INTERVENTIONAL RADIOLOGY N/A 11/16/2022 Procedure: USg Biopsy of Left Axillary Lymph Node; Surgeon: Judd Allan MD; Location: [facility]; Service: Interventional Radiology Social History Socioeconomic History Marital status: Tobacco Use Smoking status: Some Days Packs/day: 0.50 Years: 20.00 Total pack years: 10.00 Types: Cigarettes Start date: 05/05/1996 Smokeless tobacco: Never Tobacco comments: I am down to 4 cigerettes a day Vaping Use Vaping Use: Never used Substance and Sexual Activity Alcohol use: Not Currently Comment: Occassionally Drug use: No Sexual activity: Not Currently Partners: Male Social Determinants of Health Financial Resource Strain: Low Risk (11/28/2022) Overall Financial Resource Strain (CARDIA) Difficulty of Paying Living Expenses: Not hard at all Food Insecurity: No Food Insecurity (11/28/2022) Hunger Vital Sign Worried About Running Out of Food in the Last Year: Never true Ran Out of Food in the Last Year: Never true Transportation Needs: No Transportation Needs (11/28/2022) PRAPARE - Transportation Lack of Transportation (Medical): No Lack of Transportation (Non-Medical): No Social Connections: Unknown (05/12/2021) Social Connection and Isolation Panel [NHANES] Frequency of Communication with Friends and Family: Once a week Housing Stability: Unknown (05/12/2021) Housing Stability Vital Sign Unable to Pay for Housing in the Last Year: No Family History Problem Relation Age of Onset Heart disease Father Hypertension Father Cancer Father colon Diabetes Father Heart disease Sister Diabetes Sister Hypertension Sister Thyroid disease Mother Kidney disease Mother Breast cancer Sister Thyroid disease Sister Current Outpatient Medications Medication Sig Dispense Refill apixaban (Eliquis) 5 mg Tab Take 1 (one) tablet (5 mg total) by mouth 2 (two) times a day . 60 tablet 11 levothyroxine (SYNTHROID, LEVOTHROID) 125 MCG tablet TAKE 1 TABLET BY MOUTH DAILY 90 tablet 3 multivitamin (THERAGRAN) per tablet Take 1 (one) tablet by mouth daily . No current facility-administered medications for this visit. PHQ-9 Depression Screening - 11/28/22 1619 Over the last 2 weeks, how often have you been bothered by any of the following problems? (Retired)Little interest or pleasure in doing things -- Little interest or pleasure in doing things 0 (Retired)Feeling down, depressed, or hopeless -- Feeling down, depressed, or hopeless 0 PHQ-2 Total Score 0 Trouble falling or staying asleep, or sleeping too much -- Feeling tired or having little energy -- Poor appetite or overeating -- Feeling bad about yourself - or that you are a failure or have let yourself or your family down -- Trouble concentrating on things, such as reading the newspaper or watching television -- Moving or speaking so slowly that other people could have noticed. Or the opposite - being so fidgety or restless that you have been moving around a lot more than usual -- Thoughts that you would be better off , or of hurting yourself in some way -- PHQ-9 Total Score -- RETIRED - PHQ-9 Total Score -- If you checked off any problems, how difficult have these problems made it for you to do your work,take care of things at home, or get along with other people? -- PHQ-2 Total Score -- Goals None Review of Systems Constitutional: Negative for chills, fever and unexpected weight change. HENT: Negative for ear pain, mouth sores, sinus pain, sore throat and trouble swallowing. Eyes: Negative for photophobia and pain. Respiratory: Negative for cough and shortness of breath. Cardiovascular: Negative for chest pain, palpitations and leg swelling. Gastrointestinal: Negative for abdominal pain, blood in stool, constipation and nausea. Endocrine: Negative for polydipsia and polyuria. Genitourinary: Negative for dysuria and frequency. Musculoskeletal: Negative for back pain and gait problem. Skin: Negative for rash. Allergic/Immunologic: Negative for immunocompromised state. Neurological: Negative for dizziness and weakness. Hematological: Negative for adenopathy. Does not bruise/bleed easily. Psychiatric/Behavioral: Negative for dysphoric mood and hallucinations. The patient is not nervous/anxious. Physical Exam Constitutional: General: She is not in acute distress. Appearance: She is well-developed. She is not ill-appearing. HENT: Head: Normocephalic and atraumatic. Right Ear: Tympanic membrane, ear canal and external ear normal. Left Ear: Tympanic membrane, ear canal and external ear normal. Nose: Nose normal. Mouth/Throat: Mouth: Mucous membranes are moist. Eyes: Extraocular Movements: Extraocular movements intact. Conjunctiva/sclera: Conjunctivae normal. Pupils: Pupils are equal, round, and reactive to light. Cardiovascular: Rate and Rhythm: Normal rate and regular rhythm. Heart sounds: Normal heart sounds. No murmur heard. Pulmonary: Effort: Pulmonary effort is normal. Breath sounds: Normal breath sounds. No wheezing. Chest: Chest wall: No tenderness. Abdominal: General: Bowel sounds are normal. Palpations: Abdomen is soft. There is no mass. Tenderness: There is no abdominal tenderness. There is no guarding or rebound. Musculoskeletal: General: No tenderness or deformity. Cervical back: Normal range of motion and neck supple. Comments: Scant nodes left axilla Lymphadenopathy: Cervical: No cervical adenopathy. Skin: General: Skin is warm and dry. Findings: No rash. Neurological: Mental Status: She is alert and oriented to person, place, and time. Mental status is at baseline. Deep Tendon Reflexes: Reflexes are normal and symmetric. Psychiatric: Mood and Affect: Mood normal. Behavior: Behavior normal. Thought Content: Thought content normal. Judgment: Judgment normal. Lab Results Component Value Date ALBUMIN 2.5 (L) 09/15/2022 ALT 122 (H) 09/15/2022 AST 120 (H) 09/15/2022 BUN 12 09/15/2022 CALCIUM 8.5 09/15/2022 CL 110 (H) 09/15/2022 CHOL 220 (H) 12/20/2018 CREATININE 0.75 09/15/2022 GLU 100 05/31/2016 GLU 100 05/31/2016 GLUCOSE 103 (H) 09/15/2022 EXTGLUCOSE 110 10/21/2021 HDL 38 (L) 12/20/2018 HCT 38.8 10/25/2022 HGB 12.4 10/25/2022 HGBA1C 6.1 11/19/2021 LDL 175 05/31/2016 LDL 175 05/31/2016 PLT 271 11/16/2022 K 4.1 09/15/2022 NA 136 09/15/2022 TRIG 181 (H) 12/20/2018 WBC 9.18 10/25/2022 There are no diagnoses linked to this encounter. Diagnoses and all orders for this visit: Acute non-recurrent maxillary sinusitis try this for 10 days follow up with Dr. Bullock looks like she may be recheck ct chest will have you back end of december go over the plan recheck bp/wt.. - doxycycline hyclate (VIBRAMYCIN) 100 MG capsule; Take 1 (one) capsule (100 mg total) by mouth 2 (two) times a day for 10 days . Familial hypercholesteremia - rosuvastatin (CRESTOR) 10 MG tablet; Take 1 (one) tablet (10 mg total) by mouth daily . Familial hypercholesteremia don't start crestor until lft's back they were up on tylenol in past. - rosuvastatin (CRESTOR) 10 MG tablet; Take 1 (one) tablet (10 mg total) by mouth daily . - Comprehensive Metabolic Panel; Future For any new medications prescribed today, patient was educated about indications for the medication, how to take the medication and potential side effects of the medications. * Ying Quispe DO - 11/28/2022 4:43 PM EDT 01/01/2018 8:00 AM 01/14/2019 2:00 PM 09/29/2020 1:00 PM 05/12/2021 9:44 AM 01/05/2022 4:00 PM 06/06/2022 11:00 AM 11/28/2022 4:19 PM Depression Screening Little interest or pleasure in doing things 0 0 0 0 0 1 0 Feeling down, depressed, or hopeless 0 0 0 0 0 0 0 PHQ-2 Total Score 0 0 0 0 0 1 0 Trouble falling or staying asleep, or sleeping too much 0 0 0 2 Feeling tired or having little energy 0 0 0 2 Poor appetite or overeating 0 0 0 0 Feeling bad about yourself - or that you are a failure or have let yourself or your family down 0 00 0 Trouble concentrating on things, such as reading the newspaper or watching television 0 0 0 0 Moving or speaking so slowly that other people could have noticed. Or the opposite - being so fidgety or restless that you have been moving around a lot more than usual 0 0 0 0 Thoughts that you would be better off , or of hurting yourself in some way 0 0 0 0 PHQ-9 Total Score 0 0 0 5 If you checked off any problems, how difficult have these problems made it for you to do your work,take care of things at home, or get along with other people? Not difficult at all Somewhat difficult documented in this [id number] History of Present illness Narrative* Lita Gu MD - 10/25/2022 10:52 AM EDT Clinic follow up note PATIENT: Scott Obregon : 1960 AGE: 62 y.o. SEX: female RACE: [1] PCP: Ying Quispe DO REFERRAL: No ref. provider found HPI Patient has been on PTO. Has been eating healthy, working in the yard. Feels improved. Has lost10 lbs in the past month however has apparently gained 3 lbs in the past week. Reports getting stronger. HEMATOLOGIC HX Patient reports being relatively healthy until May 2022 when she noted some discoloration of the hands with bluish discoloration and she was started on nifedipine. She subsequentlydeveloped worsening pain and swelling in the left arm that caused her to seek medical attention andwas demonstrated to have acute dvt involving the left arm. She has been on apixaban , swelling is johansen bsiding. 09/06/2022 - Doppler of the left upper arm - No evidence of deep vein thrombosis in the left subclavian and axillary veins, demonstrating complete resolution of previous thrombus 09/20/2022 - ct lung cancer screening - Centrilobular and paraseptal emphysema. Noncalcified nodules within the chest with measurements given in the body of the report. The largest nodule is a 0.8 cmnoncalcified pleural based nodular density posterior right upper chest (series 2, image 57).A low-dose CT examination of the chest in 3 months is recommended. There are numerous bilateral axillary lymph nodes, several of which are prominent, largest measuring 1.3 x 1.1 cm within the right axilla and 1.3 x 1.1 cm, 1.5 x 1.1 cm and 1.7 x 1.2 cm within the left axilla. An ultrasound examination of the bilateral axilla recommended.There is a 1.6 cm left adrenal nodule measuring 10 Hounsfield units suggesting that this may represent an adrenal adenoma. Multi- vessel coronary artery calcifications. Additional findings of atherosclerotic disease as described in the body of the report. ALLERGIES Allergies Allergen Reactions Iodine And Iodide Containing Products GI Intolerance Seafood, Vomiting MEDS has a current medication list which includes the following prescription(s): apixaban, levothyroxine, and multivitamin. PMH/PSH Past Medical History: Diagnosis Date Acute appendicitis with localized peritonitis and gangrene, without perforation or abscess 09/15/2018 Anemia Appendicitis 2019 Arm DVT (deep venous thromboembolism), acute, left (HCC) 05/2022 Disease of thyroid gland Hypothyroidism Hyperlipidemia Hypertension borderline Right hip pain previous PCP said has inflammation had cortisone injection in past w/ no help Past Surgical History: Procedure Laterality Date APPENDECTOMY APPENDECTOMY LAPAROSCOPIC N/A 09/14/2018 Procedure: APPENDECTOMY LAPAROSCOPIC; Surgeon: Татьяна Jenkins MD; [place] [place]; Service: General Surgery FH Family History Problem Relation Age of Onset Heart disease Father Hypertension Father Cancer Father colon Diabetes Father Heart disease Sister Diabetes Sister Hypertension Sister Thyroid disease Mother Kidney disease Mother Breast cancer Sister Thyroid disease Sister SH Social History Socioeconomic History Marital status: Tobacco Use Smoking status: Some Days Packs/day: 0.50 Years: 20.00 Pack years: 10.00 Types: Cigarettes Start date: 05/05/1996 Smokeless tobacco: Never Vaping Use Vaping Use: Never used Substance and Sexual Activity Alcohol use: Not Currently Comment: Occassionally Drug use: No Sexual activity: Not Currently Partners: Male Social Determinants of Health Financial Resource Strain: Low Risk (09/29/2020) Overall Financial Resource Strain (CARDIA) Difficulty of Paying Living Expenses: Not hard at all Food Insecurity: No Food Insecurity (05/12/2021) Hunger Vital Sign Worried About Running Out of Food in the Last Year: Never true Ran Out of Food in the Last Year: Never true Transportation Needs: No Transportation Needs (05/12/2021) PRAPARE - Transportation Lack of Transportation (Medical): No Lack of Transportation (Non-Medical): No Social Connections: Unknown (05/12/2021) Social Connection and Isolation Panel [NHANES] Frequency of Communication with Friends and Family: Once a week Housing Stability: Unknown (05/12/2021) Housing Stability Vital Sign Unable to Pay for Housing in the Last Year: No ROS Review of Systems Constitutional: Negative for appetite change, chills, diaphoresis, fatigue, fever and unexpected weight change. HENT: Negative for hearing loss, lump/mass, mouth sores, nosebleeds, sore throat, tinnitus, troubleswallowing and voice change. Eyes: Negative for eye problems, icterus and visual disturbance. Respiratory: Negative for apnea, chest tightness, cough, hemoptysis, shortness of breath and wheezing. Cardiovascular: Negative for chest pain, leg swelling and palpitations. Gastrointestinal: Negative for abdominal distention, abdominal pain, blood in stool, constipation, diarrhea, dyspepsia, nausea, rectal pain and vomiting. Endocrine: Negative for hot flashes. Genitourinary: Negative for bladder incontinence, difficulty urinating, dyspareunia, dysuria, enuresis, frequency, hematuria, menstrual problem, nocturia, pelvic pain, urgency, vaginal bleeding, vaginal discharge and vaginal pain. Musculoskeletal: Negative for arthralgias, back pain, bone pain, flank pain, gait problem, myalgias, muscle weakness, neck pain and neck stiffness. Skin: Negative for itching, pruritus, rash, ulcers and wound. Neurological: Negative for dizziness, extremity weakness, gait problem, headaches, light-headedness, numbness, seizures and speech difficulty. Hematological: Negative for adenopathy. Does not bruise/bleed easily. Psychiatric/Behavioral: Negative for confusion, decreased concentration, depression, sleep disturbance and suicidal ideas. The patient is not nervous/anxious. EXAM BP 137/78 (BP Location: Right arm) Pulse 86 Temp 98.7 F (37.1 C) (Oral) Ht 5' 11 Wt 69.5 kg (153 lb 4.8 oz) SpO2 94% BMI 21.38 kg/m Physical Exam Constitutional: Appearance: She is well-developed. HENT: Head: Normocephalic and atraumatic. Eyes: Conjunctiva/sclera: Conjunctivae normal. Pupils: Pupils are equal, round, and reactive to light. Neck: Trachea: No tracheal deviation. Comments: Palpable bilateral axillary adenopathy, left more prominent than right , non tender mobile lymph nodes 1-2 cms in diameter Cardiovascular: Rate and Rhythm: Normal rate and regular rhythm. Heart sounds: Normal heart sounds. Pulmonary: Effort: Pulmonary effort is normal. Breath sounds: Normal breath sounds. Abdominal: General: Bowel sounds are normal. Palpations: Abdomen is soft. Musculoskeletal: General: Normal range of motion. Cervical back: Normal range of motion and neck supple. Lymphadenopathy: Cervical: No cervical adenopathy. Skin: General: Skin is warm and dry. Neurological: Mental Status: She is alert and oriented to person, place, and time. Deep Tendon Reflexes: Reflexes are normal and symmetric. Comments: Power in the upper extremities is 5 -. Right hand is stronger than the left. She is right-handed. LABS / IMAGING Reviewed recent imaging and labs , imaging and labs from 09/15/2022 IMPRESSION 61-year-old female with recent onset unprovoked thrombosis of the left upper extremity, noted to be positive for heterozygous factor V Leiden mutation. ASSESSMENT / PLAN Spontaneous dvt of the left upper extremity / factor V Leiden mutation - on anticoagulation with Eliquis. Reviewed the recent doppler , d-dimer persistently elevated Transaminitis, rule out drug-induced Reviewed recent findings on the low-dose CT imaging, noted bilateral axillary adenopathy, given symptomatology, transaminitis, recommend PET/CT imaging to assess PET activity of the lymph nodes and plan biopsy accordingly. Recommend : PET/ct scan Neurology evaluation MRI of the brain 10/25/2022 - Patient is noted to have unintentional weight loss - attributes to diet Reviewed pet/ct imaging - multiple sites of lymphadenopathy with low SUV activity. R/o low grade lymphoproliferative disorder/ inflammatory etiology Rtc after completion of above H/o Heterozygous Factor V mutation / spontaneous upper extremity dvt - on eliquis Thank you for the privilege of allowing me to participate in the care of Scott Obregon. LITA GU MD Template Design [employer] documented in this [id number] History of Present illness Narrative* Lita Gu MD - 09/27/2022 9:16 AM EDT Clinic follow up note PATIENT: Scott Obregon : 1960 AGE: 62 y.o. SEX: female RACE: [1] PCP: Ying Quispe DO REFERRAL: No ref. provider found HPI Patient reports having some swelling in the extremities and intermittent weakness. Has been experiencing some difficulty opening cans. She has observed the above symptoms for about 3 weeks. Patient does not use alcohol. She reports having a fall in the garden attributed to the weakness, was taking Tylenol subsequently. HEMATOLOGIC HX Patient reports being relatively healthy until May 2022 when she noted some discoloration of the hands with bluish discoloration and she was started on nifedipine. She subsequentlydeveloped worsening pain and swelling in the left arm that caused her to seek medical attention andwas demonstrated to have acute dvt involving the left arm. She has been on apixaban , swelling is johansen bsiding. 09/06/2022 - Doppler of the left upper arm - No evidence of deep vein thrombosis in the left subclavian and axillary veins, demonstrating complete resolution of previous thrombus 09/20/2022 - ct lung cancer screening - Centrilobular and paraseptal emphysema. Noncalcified nodules within the chest with measurements given in the body of the report. The largest nodule is a 0.8 cmnoncalcified pleural based nodular density posterior right upper chest (series 2, image 57).A low-dose CT examination of the chest in 3 months is recommended. There are numerous bilateral axillary lymph nodes, several of which are prominent, largest measuring 1.3 x 1.1 cm within the right axilla and 1.3 x 1.1 cm, 1.5 x 1.1 cm and 1.7 x 1.2 cm within the left axilla. An ultrasound examination of the bilateral axilla recommended.There is a 1.6 cm left adrenal nodule measuring 10 Hounsfield units suggesting that this may represent an adrenal adenoma. Multi- vessel coronary artery calcifications. Additional findings of atherosclerotic disease as described in the body of the report. ALLERGIES Allergies Allergen Reactions Iodine And Iodide Containing Products GI Intolerance Seafood, Vomiting MEDS has a current medication list which includes the following prescription(s): apixaban, levothyroxine, and multivitamin. PMH/PSH Past Medical History: Diagnosis Date Acute appendicitis with localized peritonitis and gangrene, without perforation or abscess 09/15/2018 Anemia Appendicitis 2019 Arm DVT (deep venous thromboembolism), acute, left (HCC) 05/2022 Disease of thyroid gland Hypothyroidism Hyperlipidemia Hypertension borderline Right hip pain previous PCP said has inflammation had cortisone injection in past w/ no help Past Surgical History: Procedure Laterality Date APPENDECTOMY APPENDECTOMY LAPAROSCOPIC N/A 09/14/2018 Procedure: APPENDECTOMY LAPAROSCOPIC; Surgeon: Татьяна Jenkins MD; Location: [facility]; Service: General Surgery FH Family History Problem Relation Age of Onset Heart disease Father Hypertension Father Cancer Father colon Diabetes Father Heart disease Sister Diabetes Sister Hypertension Sister Thyroid disease Mother Kidney disease Mother Breast cancer Sister Thyroid disease Sister SH Social History Socioeconomic History Marital status: Tobacco Use Smoking status: Some Days Packs/day: 0.50 Years: 20.00 Pack years: 10.00 Types: Cigarettes Start date: 05/05/1996 Smokeless tobacco: Never Vaping Use Vaping status: Never Used Substance and Sexual Activity Alcohol use: Not Currently Comment: Occassionally Drug use: No Sexual activity: Not Currently Partners: Male Social Determinants of Health Financial Resource Strain: Low Risk (09/29/2020) Overall Financial Resource Strain (CARDIA) Difficulty of Paying Living Expenses: Not hard at all Food Insecurity: No Food Insecurity (05/12/2021) Hunger Vital Sign Worried About Running Out of Food in the Last Year: Never true Ran Out of Food in the Last Year: Never true Transportation Needs: No Transportation Needs (05/12/2021) PRAPARE - Transportation Lack of Transportation (Medical): No Lack of Transportation (Non-Medical): No Social Connections: Unknown (05/12/2021) Social Connection and Isolation Panel [NHANES] Frequency of Communication with Friends and Family: Once a week Housing Stability: Unknown (05/12/2021) Housing Stability Vital Sign Unable to Pay for Housing in the Last Year: No ROS Review of Systems Constitutional: Negative for appetite change, chills, diaphoresis, fatigue, fever and unexpected weight change. HENT: Negative for hearing loss, lump/mass, mouth sores, nosebleeds, sore throat, tinnitus, troubleswallowing and voice change. Eyes: Negative for eye problems, icterus and visual disturbance. Respiratory: Negative for apnea, chest tightness, cough, hemoptysis, shortness of breath and wheezing. Cardiovascular: Negative for chest pain, leg swelling and palpitations. Gastrointestinal: Negative for abdominal distention, abdominal pain, blood in stool, constipation, diarrhea, dyspepsia, nausea, rectal pain and vomiting. Endocrine: Negative for hot flashes. Genitourinary: Negative for bladder incontinence, difficulty urinating, dyspareunia, dysuria, enuresis, frequency, hematuria, menstrual problem, nocturia, pelvic pain, urgency, vaginal bleeding, vaginal discharge and vaginal pain. Musculoskeletal: Negative for arthralgias, back pain, bone pain, flank pain, gait problem, myalgias, muscle weakness, neck pain and neck stiffness. Skin: Negative for itching, pruritus, rash, ulcers and wound. Neurological: Negative for dizziness, extremity weakness, gait problem, headaches, light-headedness, numbness, seizures and speech difficulty. Hematological: Negative for adenopathy. Does not bruise/bleed easily. Psychiatric/Behavioral: Negative for confusion, decreased concentration, depression, sleep disturbance and suicidal ideas. The patient is not nervous/anxious. EXAM BP (!) 144/84 (BP Location: Right arm) Pulse 95 Temp 98.4 F (36.9 C) (Oral) Ht 5' 11 Wt 74.2 kg (163 lb 9.6 oz) SpO2 95% BMI 22.82 kg/m Physical Exam Constitutional: Appearance: She is well-developed. HENT: Head: Normocephalic and atraumatic. Eyes: Conjunctiva/sclera: Conjunctivae normal. Pupils: Pupils are equal, round, and reactive to light. Neck: Trachea: No tracheal deviation. Comments: Palpable right axillary discrete adenopathy, non tender Cardiovascular: Rate and Rhythm: Normal rate and regular rhythm. Heart sounds: Normal heart sounds. Pulmonary: Effort: Pulmonary effort is normal. Breath sounds: Normal breath sounds. Abdominal: General: Bowel sounds are normal. Palpations: Abdomen is soft. Musculoskeletal: General: Normal range of motion. Cervical back: Normal range of motion and neck supple. Lymphadenopathy: Cervical: No cervical adenopathy. Skin: General: Skin is warm and dry. Neurological: Mental Status: She is alert and oriented to person, place, and time. Deep Tendon Reflexes: Reflexes are normal and symmetric. Comments: Power in the upper extremities is 5 -. Right hand is stronger than the left. She is right-handed. LABS / IMAGING Reviewed recent imaging and labs , imaging and labs from 09/15/2022 IMPRESSION 61-year-old female with recent onset unprovoked thrombosis of the left upper extremity, noted to be positive for heterozygous factor V Leiden mutation. ASSESSMENT / PLAN Spontaneous dvt of the left upper extremity / factor V Leiden mutation - on anticoagulation with Eliquis. Reviewed the recent doppler , d-dimer persistently elevated Transaminitis, rule out drug-induced Reviewed recent findings on the low-dose CT imaging, noted bilateral axillary adenopathy, given symptomatology, transaminitis, recommend PET/CT imaging to assess PET activity of the lymph nodes and plan biopsy accordingly. Recommend Recommend: PET/ct scan Neurology evaluation MRI of the brain Thank you for the privilege of allowing me to participate in the care of Scott Obregon. LITA GU MD Template Design PNSHETH documented in this [id number] History of Present illness Narrative* Amalia Fernandez - 09/20/2022 3:42 PM EDT Lung Cancer Screening Navigation Date of LDCT: 09/15/22 Ordering Provider: Lita Gu MD Lung Rads: LRAD 4A Radiologist impression: Centrilobular and paraseptal emphysema. Noncalcified nodules within the chest with measurements given in the body of the report. The largest nodule is a 0.8 cm noncalcified pleural based nodular density posterior right upper chest (series 2, image 57). A low-dose CT examination of the chest in 3 months is recommended. There are numerous bilateral axillary lymph nodes, several of which are prominent, largest measuring 1.3 x 1.1 cm within the right axilla and 1.3 x 1.1 cm, 1.5 x 1.1 cm and 1.7 x 1.2 cm within the left axilla. An ultrasound examination of the bilateral axilla recommended. There is a 1.6 cm left adrenal nodule measuring 10 Hounsfield units suggesting that this may represent an adrenal adenoma. Multi-vessel coronary artery calcifications. Additional findings of atherosclerotic disease as described in the body of the report. ACR Lung-Rads Management: A low-dose CT examination of the chest in 3 months is recommended. Ordering Provider Notified: Yes, results routed to ordering provider. documented in this [id number] Note* Addendum Note - Ying Quispe, - 08/15/2022 5:28 PM EDTAddended by: YING QUISPE on: 08/15/2022 05:28 PM Modules accepted: Orders [id number] Miscellaneous Notes* Addendum Note - Ying Quispe DO - 08/15/2022 5:28 PM EDTAddended by: YING QUISPE on: 08/15/2022 05:28 PM Modules accepted: Orders documented in this [id number] History of Present illness Narrative* Ying Quispe, - 08/15/2022 5:07 PM EDT Images from the original note were not included. HPI Dr. Kobe benjamin appreciated is following up in september after ct chest with her. Here 08/15/2022 with reticular changes left inner thigh on eliquis without injury, fever, chills, . Off procardia now for 2-3 weeks felt like an old woman.. Vitals: 08/15/22 1636 BP: 138/80 Temp: 99.2 F (37.3 C) Pulse: 88 Resp: 14 PT WEIGHT Weight 08/15/2022 167 lb 3.2 oz 07/06/2022 172 lb 3.2 oz 06/13/2022 177 lb 4.8 oz 06/10/2022 170 lb BP Readings from Last 4 Encounters: 08/15/22 138/80 02/08/23 133/83 06/13/22 132/70 06/11/22 125/74 Past Medical History: Diagnosis Date Anemia Appendicitis 2018 Arm DVT (deep venous thromboembolism), acute, left (HCC) 05/2022 Disease of thyroid gland Hypothyroidism Hyperlipidemia Hypertension borderline Right hip pain previous PCP said has inflammation had cortisone injection in past w/ no help Past Surgical History: Procedure Laterality Date APPENDECTOMY APPENDECTOMY LAPAROSCOPIC N/A 09/14/2018 Procedure: APPENDECTOMY LAPAROSCOPIC; Surgeon: Татяьна Jenkins MD; Location: Main OR; Service: General Surgery Social History Socioeconomic History Marital status: Tobacco Use Smoking status: Some Days Packs/day: 0.50 Years: 20.00 Pack years: 10.00 Types: Cigarettes Start date: 05/05/1996 Smokeless tobacco: Never Tobacco comments: I am down to 4 cigerettes a day Vaping Use Vaping Use: Never used Substance and Sexual Activity Alcohol use: Not Currently Comment: Occassionally Drug use: No Sexual activity: Not Currently Partners: Male Family History Problem Relation Age of Onset Heart disease Father Hypertension Father Cancer Father colon Diabetes Father Heart disease Sister Diabetes Sister Hypertension Sister Thyroid disease Mother Kidney disease Mother Breast cancer Sister Thyroid disease Sister Current Outpatient Medications Medication Sig Dispense Refill apixaban (Eliquis) 5 mg Tab Take 1 (one) tablet (5 mg total) by mouth 2 (two) times a day Start: 06/18/22. 60 tablet 2 levothyroxine (SYNTHROID, LEVOTHROID) 125 MCG tablet Take 1 (one) tablet (125 mcg total) by mouth daily . 90 tablet 3 multivitamin (THERAGRAN) per tablet Take 1 (one) tablet by mouth daily . omega-3 fatty acids-fish oil 340-1,000 mg cap Take 1 (one) capsule by mouth daily . NIFEdipine (PROCARDIA XL) 30 MG 24 hr tablet Take 1 (one) tablet (30 mg total) by mouth daily . 30 tablet 11 No current facility-administered medications for this visit. PHQ-9 Depression Screening No documentation. Goals None Review of Systems Constitutional: Negative for chills and fatigue. HENT: Negative for mouth sores and sinus pressure. Eyes: Negative for pain and visual disturbance. Respiratory: Negative for cough and shortness of breath. Cardiovascular: Negative for chest pain and palpitations. Endocrine: Negative for polydipsia, polyphagia and polyuria. Genitourinary: Negative for dysuria and hematuria. Skin: Negative for rash. Neurological: Negative for dizziness and light-headedness. Hematological: Negative for adenopathy. Psychiatric/Behavioral: Negative for behavioral problems and self-injury. Physical Exam Vitals reviewed. Constitutional: General: She is not in acute distress. Cardiovascular: Rate and Rhythm: Normal rate and regular rhythm. Pulses: Normal pulses. Heart sounds: Normal heart sounds. Pulmonary: Effort: Pulmonary effort is normal. Breath sounds: Normal breath sounds. Musculoskeletal: Comments: Mild edema left upper arm. Shoddy nodes axilla. Neurological: Mental Status: She is alert and oriented to person, place, and time. Mental status is at baseline. Psychiatric: Mood and Affect: Mood normal. There are no diagnoses linked to this encounter. Diagnoses and all orders for this visit: Acute deep vein thrombosis (DVT) of axillary vein of left upper extremity (HCC) repeat left axillary vein ultraound with dr. Blake in a month to follow clot. Continue xarelto 5 bid.. For any new medications prescribed today, patient was educated about indications for the medication, how to take the medication and potential side effects of the medications. documented in this [id number] History of Present illness Narrative* Lita Gu MD - 07/06/2022 8:58 AM EST CONSULT NOTE PATIENT: Scott Obregon : 1960 AGE: 61 y.o. SEX: female RACE: [1] PCP: Ying Quispe DO REFERRAL: Ying Quispe DO CC / REASON FOR CONSULT Recent diagnosis of left upper extremity dvt HPI Patient reports being relatively healthy until May when she noted some discoloration of thehands with bluish discoloration and she was started on nifedipine. She subsequently developed worsening pain and swelling in the left arm that caused her to seek medical attention and was demonstrated to have acute dvt involving the left arm. She has been on apixaban , swelling is subsiding. Denies headaches. Some changes in visual acuity , has an ophthal appt coming up. No chest pain or shortness of breath. No cough. Smoker 40 years x 1 ppd. Has cut down more recently to 1/2 ppd. No change in bowel habits or blood in the stool or black stool. Appetite is poor. Some altered taste. Has chronic back pain and more recent pain in the left shoulder. Energy levels fair. Works at [employer]. No pregnancies. No miscarriages in mother, h/o thrombosis in father post trauma H/o colon cancer in father in his eighties. Sister has breast cancer diagnosis in her forties. ALLERGIES Allergies Allergen Reactions Iodine And Iodide Containing Products GI Intolerance Seafood, Vomiting MEDS has a current medication list which includes the following prescription(s): apixaban, levothyroxine, multivitamin, nifedipine, and omega-3 fatty acids-fish oil. PMH/PSH Past Medical History: Diagnosis Date Anemia Appendicitis 2018 Arm DVT (deep venous thromboembolism), acute, left (HCC) 05/2022 Disease of thyroid gland Hypothyroidism Hyperlipidemia Hypertension borderline Right hip pain previous PCP said has inflammation had cortisone injection in past w/ no help Past Surgical History: Procedure Laterality Date APPENDECTOMY APPENDECTOMY LAPAROSCOPIC N/A 09/14/2018 Procedure: APPENDECTOMY LAPAROSCOPIC; Surgeon: Татьяна Jenkins MD; Location: Main OR; Service: General Surgery FH Family History Problem Relation Age of Onset Heart disease Father Hypertension Father Cancer Father colon Diabetes Father Heart disease Sister Diabetes Sister Hypertension Sister Thyroid disease Mother Kidney disease Mother Breast cancer Sister Thyroid disease Sister SH Social History Socioeconomic History Marital status: Tobacco Use Smoking status: Some Days Packs/day: 0.50 Years: 20.00 Pack years: 10.00 Types: Cigarettes Start date: 05/05/1996 Smokeless tobacco: Never Tobacco comments: I am down to 4 cigerettes a day Vaping Use Vaping Use: Never used Substance and Sexual Activity Alcohol use: Not Currently Comment: Occassionally Drug use: No Sexual activity: Not Currently Partners: Male ROS Review of Systems Constitutional: Negative for appetite change, chills, diaphoresis, fatigue, fever and unexpected weight change. HENT: Negative for hearing loss, lump/mass, mouth sores, nosebleeds, sore throat, tinnitus, troubleswallowing and voice change. Eyes: Negative for eye problems, icterus and visual disturbance. Respiratory: Negative for apnea, chest tightness, cough, hemoptysis, shortness of breath and wheezing. Cardiovascular: Negative for chest pain, leg swelling and palpitations. Gastrointestinal: Negative for abdominal distention, abdominal pain, blood in stool, constipation, diarrhea, dyspepsia, nausea, rectal pain and vomiting. Endocrine: Negative for hot flashes. Genitourinary: Negative for bladder incontinence, difficulty urinating, dyspareunia, dysuria, enuresis, frequency, hematuria, menstrual problem, nocturia, pelvic pain, urgency, vaginal bleeding, vaginal discharge and vaginal pain. Musculoskeletal: Negative for arthralgias, back pain, bone pain, flank pain, gait problem, myalgias, muscle weakness, neck pain and neck stiffness. Left shoulder discomfort Skin: Negative for itching, pruritus, rash, ulcers and wound. Neurological: Negative for dizziness, extremity weakness, gait problem, headaches, light-headedness, numbness, seizures and speech difficulty. Hematological: Negative for adenopathy. Does not bruise/bleed easily. Psychiatric/Behavioral: Negative for confusion, decreased concentration, depression, sleep disturbance and suicidal ideas. The patient is not nervous/anxious. EXAM BP 133/83 (BP Location: Right arm) Pulse 92 Temp 98.2 F (36.8 C) (Oral) Ht 5' 11 Wt 78.1 kg (172 lb 3.2 oz) SpO2 94% BMI 24.02 kg/m Physical Exam Constitutional: Appearance: She is well-developed. Comments: Breast examination without any focal palpable abnormality or axillary adenopathy. Skin appears normal. HENT: Head: Normocephalic and atraumatic. Eyes: Conjunctiva/sclera: Conjunctivae normal. Pupils: Pupils are equal, round, and reactive to light. Neck: Trachea: No tracheal deviation. Cardiovascular: Rate and Rhythm: Normal rate and regular rhythm. Heart sounds: Normal heart sounds. Pulmonary: Effort: Pulmonary effort is normal. Breath sounds: Normal breath sounds. Abdominal: General: Bowel sounds are normal. Palpations: Abdomen is soft. Musculoskeletal: General: Normal range of motion. Cervical back: Normal range of motion and neck supple. Lymphadenopathy: Cervical: No cervical adenopathy. Skin: General: Skin is warm and dry. Neurological: Mental Status: She is alert and oriented to person, place, and time. Deep Tendon Reflexes: Reflexes are normal and symmetric. LABS / IMAGING Reviewed labs and imaging IMPRESSION 61-year-old female with recent onset unprovoked thrombosis of the left upper extremity, noted to be positive for heterozygous factor V Leiden mutation. ASSESSMENT / PLAN Heterozygous Factor V Leiden mutation -unprovoked thrombosis, discussed the findings at this time, recommend consideration for lifelong anticoagulation. Discussed underlying malignancy being in the differential diagnosis for thrombosis, even though patient is losing weight she reports that to being intentional, has had a mammogram which was unremarkable, advised on alarm signs and report any new persistent or progressive symptoms. Recommend Low dose ct chest given longstandinghistory of smoking Thank you for the privilege of allowing me to participate in the care of Scott Singh Obregon. LITA GU MD Template Design PNSHETH documented in this [id number] Instructions* Patient Instructions* Ying Quispe DO - 06/13/2022 4:31 PM EST Do eliquis 5mg twice daily for 3 months when done with 10mg twice daily for 7 days documented in this [id number] History of Present illness Narrative* Ying Quispe DO - 06/13/2022 4:10 PM EST Images from the original note were not included. HPI Here for follow up from Monday, dx with left axillary vein thrombosis supposed to set up with dr. Meyerematanila to check for hereditary causes of dvt. Slowing down with cigs, 3-5 daily... chest xray ok in er cmp ok in ER. Cbc ok...on eliquis now 10mg bid for 7 days then 5mg twice daily for 3-6 months. Tender/swollen biceps is improving already... Conclusions * Left. * Acute deep vein thrombosis in the subclavian and axillary veins of the left upper extremity. * All other deep veins visualized are normally patent. * No evidence of superficial thrombosis of the left cephalic and basilic veins. Risk Factors Patient has a history of hyperlipidemia and tobacco use-current. Scott Obregon is a 61 y.o. female patient of Ying Quispe DO with history of Hypothyroidism, hypertension, hyperlipidemia, who presented to the emergency room with left arm swelling, foundto have acute DVT. Patient presented on June 06 to primary care physician with bilateral hand paler with subsequent bluish discoloration, without pain she was started on nifedipine for clinical diagnosis of Raynaud'sphenomenon, in the last 2 days, she has worsening left arm swelling, patient underwent ultrasound of the left arm which showed acute DVT in the subclavian and axillary veins, no evidence of superficial thrombosis. Patient denies self or family history of hypercoagulability, no chest pain, no shortness of breath, no leg swelling. Denies recent peripheral or central line placement. Only risk factor reported the patient is current smoking, at this time patient has been seen by vascular surgery patient is to continue with oral anticoagulation for the next 3 to 6 months at least and continue as directed by primary care hematology medication supplies been sent to patient's desired pharmacy patient will need continued outpatient thrombophilia work-up Patient states that money is not an issue whenever the medication call she will be able to pick it up Acute DVT of the left arm in the subclavian and axillary vein Strong pulse, warm hands, good perfusion pallor and bluish discoloration is bilaterally in the hands, likely different etiology. Started on heparin drip by ED, will continue for now, transition to Eliquis loading dose at the time of discharge, follow-up with hematology as outpatient. Warm compression, Tylenol planned for pain Vascular surgery attending evaluate the imaging, no further imaging or intervention granted, recommended outpatient follow-up with hematology. Will check factor V and prothrombin mutation Vitals: 06/13/22 1517 BP: 132/70 Temp: 98.7 F (37.1 C) Pulse: 72 Resp: 18 PT WEIGHT Weight 06/13/2022 177 lb 4.8 oz 06/10/2022 170 lb 06/06/2022 179 lb 3.2 oz 04/06/2022 178 lb 6.4 oz BP Readings from Last 4 Encounters: 06/13/22 132/70 06/11/22 125/74 06/06/22 130/80 04/06/22 121/76 Past Medical History: Diagnosis Date Anemia Appendicitis 2019 Arm DVT (deep venous thromboembolism), acute, left (HCC) 05/2022 Disease of thyroid gland Hypothyroidism Hyperlipidemia Hypertension borderline Right hip pain previous PCP said has inflammation had cortisone injection in past w/ no help Past Surgical History: Procedure Laterality Date APPENDECTOMY APPENDECTOMY LAPAROSCOPIC N/A 09/14/2018 Procedure: APPENDECTOMY LAPAROSCOPIC; Surgeon: Татьяна Jenkins MD; Location: Main OR; Service: General Surgery Social History Socioeconomic History Marital status: Tobacco Use Smoking status: Some Days Packs/day: 0.50 Years: 20.00 Pack years: 10.00 Types: Cigarettes Start date: 05/05/1996 Smokeless tobacco: Never Tobacco comments: I am down to 4 cigerettes a day Vaping Use Vaping Use: Never used Substance and Sexual Activity Alcohol use: Not Currently Comment: Occassionally Drug use: No Sexual activity: Not Currently Partners: Male Family History Problem Relation Age of Onset Heart disease Father Hypertension Father Cancer Father colon Diabetes Father Heart disease Sister Diabetes Sister Hypertension Sister Thyroid disease Mother Kidney disease Mother Breast cancer Sister Thyroid disease Sister Current Outpatient Medications Medication Sig Dispense Refill apixaban (Eliquis) 5 mg Tab Take 2 (two) tablets (10 mg total) by mouth 2 (two) times a day for 7 days . 26 tablet 0 levothyroxine (SYNTHROID, LEVOTHROID) 125 MCG tablet Take 1 (one) tablet (125 mcg total) by mouth daily . 90 tablet 3 multivitamin (THERAGRAN) per tablet Take 1 (one) tablet by mouth daily . NIFEdipine (PROCARDIA XL) 30 MG 24 hr tablet Take 1 (one) tablet (30 mg total) by mouth daily . 30 tablet 11 omega-3 fatty acids-fish oil 340-1,000 mg cap Take 1 (one) capsule by mouth daily . [START ON 06/18/2022] apixaban (Eliquis) 5 mg Tab Take 1 (one) tablet (5 mg total) by mouth 2 (two) times a day Start: 06/18/22. 60 tablet 0 No current facility-administered medications for this visit. PHQ-9 Depression Screening No documentation. Goals None Review of Systems Constitutional: Negative for chills, fatigue, fever and unexpected weight change. HENT: Negative for ear pain, mouth sores, sinus pressure, sinus pain, sore throat and trouble swallowing. Eyes: Negative for photophobia, pain and visual disturbance. Respiratory: Negative for cough and shortness of breath. Cardiovascular: Negative for chest pain, palpitations and leg swelling. Gastrointestinal: Negative for abdominal pain, blood in stool, constipation and nausea. Endocrine: Negative for polydipsia, polyphagia and polyuria. Genitourinary: Negative for dysuria, frequency and hematuria. Musculoskeletal: Negative for back pain and gait problem. Skin: Negative for rash. Allergic/Immunologic: Negative for immunocompromised state. Neurological: Negative for dizziness, weakness and light-headedness. Hematological: Negative for adenopathy. Does not bruise/bleed easily. Psychiatric/Behavioral: Negative for behavioral problems, dysphoric mood, hallucinations and self-injury. The patient is not nervous/anxious. Physical Exam Constitutional: Appearance: Normal appearance. She is well-developed. She is not ill-appearing. HENT: Head: Normocephalic and atraumatic. Right Ear: Tympanic membrane, ear canal and external ear normal. Left Ear: Tympanic membrane, ear canal and external ear normal. Nose: Nose normal. Mouth/Throat: Mouth: Mucous membranes are moist. Pharynx: Oropharynx is clear. Eyes: Extraocular Movements: Extraocular movements intact. Conjunctiva/sclera: Conjunctivae normal. Pupils: Pupils are equal, round, and reactive to light. Cardiovascular: Rate and Rhythm: Normal rate and regular rhythm. Heart sounds: Normal heart sounds. No murmur heard. Pulmonary: Effort: Pulmonary effort is normal. Breath sounds: Normal breath sounds. No wheezing. Chest: Chest wall: No tenderness. Abdominal: General: Bowel sounds are normal. Palpations: Abdomen is soft. There is no mass. Tenderness: There is no abdominal tenderness. There is no guarding or rebound. Musculoskeletal: General: Tenderness present. No deformity. Cervical back: Normal range of motion and neck supple. Comments: Swollen biceps, dusky fingers/toes improving with eliquis/procardia Lymphadenopathy: Cervical: No cervical adenopathy. Skin: General: Skin is warm and dry. Findings: No rash. Neurological: Mental Status: She is alert and oriented to person, place, and time. Mental status is at baseline. Deep Tendon Reflexes: Reflexes are normal and symmetric. Psychiatric: Mood and Affect: Mood normal. Behavior: Behavior normal. Thought Content: Thought content normal. Judgment: Judgment normal. There are no diagnoses linked to this encounter. Diagnoses and all orders for this visit: Acute deep vein thrombosis (DVT) of axillary vein of left upper extremity (HCC) compression sleeve at [facility]. - Ambulatory referral to Hematology / Oncology; Future For any new medications prescribed today, patient was educated about indications for the medication, how to take the medication and potential side effects of the medications. * Ying Quispe DO - 06/13/2022 4:09 PM EST Depression Screening 01/01/2018 01/14/2019 09/29/2020 05/12/2021 01/05/2022 06/06/2022 Little interest or pleasure in doing things 0 0 0 0 0 1 Feeling down, depressed, or hopeless 0 0 0 0 0 0 PHQ-2 Total Score 0 0 0 0 0 1 Trouble falling or staying asleep, or sleeping too much 0 0 0 - - 2 Feeling tired or having little energy 0 0 0 - - 2 Poor appetite or overeating 0 0 0 - - 0 Feeling bad about yourself - or that you are a failure or have let yourself or your family down 0 00 - - 0 Trouble concentrating on things, such as reading the newspaper or watching television 0 0 0 - - 0 Moving or speaking so slowly that other people could have noticed. Or the opposite - being so fidgety or restless that you have been moving around a lot more than usual 0 0 0 - - 0 Thoughts that you would be better off , or of hurting yourself in some way 0 0 0 - - 0 PHQ-9 Total Score 0 0 0 - - 5 If you checked off any problems, how difficult have these problems made it for you to do your work,take care of things at home, or get along with other people? - - Not difficult at all - - Somewhat difficult documented in this [id number] Hospital course Narrative* Kat De Dios MD - 06/11/2022 9:31 AM EST Images from the original note were not included. [facility] [place] DISCHARGE SUMMARY -- [facility] Scott Obregon Admitted: 06/10/2022 Discharge Date: 06/11/22 PCP Handoff Recommended Outpatient Testing Hematology Results Pending At Discharge None Clinical Summary Scott Obregon is a 61 y.o. female patient of Ying Quispe DO with history of Hypothyroidism, hypertension, hyperlipidemia, who presented to the emergency room with left arm swelling, foundto have acute DVT. Patient presented on June 06 to primary care physician with bilateral hand paler with subsequent bluish discoloration, without pain she was started on nifedipine for clinical diagnosis of Raynaud'sphenomenon, in the last 2 days, she has worsening left arm swelling, patient underwent ultrasound of the left arm which showed acute DVT in the subclavian and axillary veins, no evidence of superficial thrombosis. Patient denies self or family history of hypercoagulability, no chest pain, no shortness of breath, no leg swelling. Denies recent peripheral or central line placement. Only risk factor reported the patient is current smoking, at this time patient has been seen by vascular surgery patient is to continue with oral anticoagulation for the next 3 to 6 months at least and continue as directed by primary care hematology medication supplies been sent to patient's desired pharmacy patient will need continued outpatient thrombophilia work-up Patient states that money is not an issue whenever the medication call she will be able to pick it up Acute DVT of the left arm in the subclavian and axillary vein Strong pulse, warm hands, good perfusion pallor and bluish discoloration is bilaterally in the hands, likely different etiology. Started on heparin drip by ED, will continue for now, transition to Eliquis loading dose at the time of discharge, follow-up with hematology as outpatient. Warm compression, Tylenol planned for pain Vascular surgery attending evaluate the imaging, no further imaging or intervention granted, recommended outpatient follow-up with hematology. Will check factor V and prothrombin mutation Bilateral pale fingers with bluish discoloration of the hands, clinically consistent with Raynaud'sphenomena Agree with outpatient nifedipine and monitor for symptoms improvement in the next 1 to 2 weeks, Hypothyroidism, levothyroxine Discharge Medications Discharge Medications New Medications Details * apixaban 5 mg Tab Commonly known as: Eliquis Take 2 (two) tablets (10 mg total) by mouth 2 (two) times a day for 7 days . Quantity: 26 tablet * apixaban 5 mg Tab Commonly known as: Eliquis Start taking on: June 18, 2022 Take 1 (one) tablet (5 mg total) by mouth 2 (two) times a day Start: 06/18/22. Quantity: 60 tablet * There are duplicate medications prescribed to the patient Medications To Continue Details levothyroxine 125 MCG tablet Commonly known as: SYNTHROID, LEVOTHROID Take 1 (one) tablet (125 mcg total) by mouth daily . Quantity: 90 tablet multivitamin per tablet Commonly known as: THERAGRAN Take 1 (one) tablet by mouth daily . NIFEdipine 30 MG 24 hr tablet Commonly known as: PROCARDIA XL Take 1 (one) tablet (30 mg total) by mouth daily . Quantity: 30 tablet omega-3 fatty acids-fish oil 340-1,000 mg Cap Take 1 (one) capsule by mouth daily . Physician(s) Follow Up: Ying Quispe DO [address] [place] [id number] Follow up Ying Quispe DO [address] [place] [id number] Lita Gu MD [address] [place], [place] [id number] Follow up Condition at Discharge: Stable Disposition: Home On day of discharge, I performed a final bedside evaluation including a physical exam. I reviewed discharge recommendations with the patient in person. Patient instructions, including activity, were given to the patient/family at discharge. Time spent on discharge: > 30 minutes Completed by: Kat De Dios on 06/11/22, 9:31 AM documented in this [id number] Hospital Discharge instructions * Discharge Instr - AVS First Page* Kat De Dios MD - 06/11/2022 9:25 AM EST Continue with Eliquis 10 mg twice a day x7 days until June 17 Follow this with 5 mg twice a day for the next 3 to 6 months as evaluated by primary care or hematology Evaluation is to include work-up for DVT documented in this [id number] Note* Plan of Care - Stacy Cano RN - 06/11/2022 12:34 AM EST Problem: Actual or potential alteration in health Goal: Absence of healthcare acquired conditions Outcome: Partially Met Goal: Knowledge of Interdisciplinary Plan of Care Outcome: Partially Met Goal: Knowledge of Enviroment Outcome: Partially Met Problem: Pain Goal: Manage acute pain Outcome: Partially Met Goal: Manage chronic pain Outcome: Partially Met Goal: Reduced pain sensation Outcome: Partially Met Goal: Achievement of comfort function goal Outcome: Partially Met Problem: Bleeding, Risk of Goal: Absence of impaired coagulation signs and symptoms Outcome: Partially Met Problem: Plan for Discharge Goal: Knowledge of discharge plan and instructions Outcome: Partially Met [id number] Miscellaneous Notes* Plan of Care - Stacy Cano RN - 06/11/2022 12:34 AM EST Problem: Actual or potential alteration in health Goal: Absence of healthcare acquired conditions Outcome: Partially Met Goal: Knowledge of Interdisciplinary Plan of Care Outcome: Partially Met Goal: Knowledge of Enviroment Outcome: Partially Met Problem: Pain Goal: Manage acute pain Outcome: Partially Met Goal: Manage chronic pain Outcome: Partially Met Goal: Reduced pain sensation Outcome: Partially Met Goal: Achievement of comfort function goal Outcome: Partially Met Problem: Bleeding, Risk of Goal: Absence of impaired coagulation signs and symptoms Outcome: Partially Met Problem: Plan for Discharge Goal: Knowledge of discharge plan and instructions Outcome: Partially Met * Plan of Care - Svetlana Monaco RN - 06/10/2022 1:34 PM EST Problem: Actual or potential alteration in health Goal: Absence of healthcare acquired conditions Outcome: Partially Met Goal: Knowledge of Interdisciplinary Plan of Care Outcome: Partially Met Goal: Knowledge of Enviroment Outcome: Partially Met Problem: Pain Goal: Manage acute pain Outcome: Partially Met Goal: Manage chronic pain Outcome: Partially Met Goal: Reduced pain sensation Outcome: Partially Met Goal: Achievement of comfort function goal Outcome: Partially Met Problem: Bleeding, Risk of Goal: Absence of impaired coagulation signs and symptoms Outcome: Partially Met Problem: Plan for Discharge Goal: Knowledge of discharge plan and instructions Outcome: Partially Met * Plan of Care - Adia Rodriguez MD - 06/10/2022 11:38 AM EST Evaluated the patient at bedside, presenting with 1 week of left arm swelling. Ultrasound showing acute DVT of the subclavian and axillary vein of the left upper extremity. Discussed with ED physician who was concerned about the left arm swelling complications. This patient would benefit from Eliquis loading then maintenance dose of follow-up with hematology. Given concern for left significant left arm swelling Per ED, recommended vascular surgery consult to see if any imaging/work-up or intervention indicated, if no intervention from vascular standpoint, patient can be placed directly on oral anticoagulation other than heparin drip. Full consult note will follow. * ED Attestation Note - Shira Lopez MD - 06/10/2022 10:15 AM EST I personally interviewed the patient. I personally examined the patient. I discussed the patient with COORDINATOR OF REHABILITATION SERVICES/PA. I agree with the COORDINATOR OF REHABILITATION SERVICES/PA treatment plan. I agree with the COORDINATOR OF REHABILITATION SERVICES/PA plan of care. I agree with the COORDINATOR OF REHABILITATION SERVICES/PA dispo as documented. Patient is a 61-year-old female presents to the ED complaints of pain and swelling left upper arm all the way to the left hand with discoloration and numbness and tingling of the hand intermittent for a week with no traumas no falls. Patient states that she did see her PCP last week for this she was told she had Raynaud's phenomena she reports a previous history of a DVT secondary to trauma several years ago and she also states she has had chest discomfort , patient is not on anticoagulants andno previous history of a PE reported, initial work-up in the ED venous duplex ultrasound is positive for DVT and blood work noted elevated D-dimer unable to get a PE study due to anaphylactic reaction to the dye and a CT brain will be ordered if negative for any bleed patient will be started on heparin she will be admitted for further management. Patient Vitals for the past 24 hrs: BP Pulse Resp SpO2 Height Weight 06/10/22 0854 (!) 177/80 98 18 100 % -- -- 06/10/22 0851 -- -- -- -- 77.1 kg (170 lb) Medications Administered (if any) Medications sodium chloride (PF) (NS) flush 5 mL (has no administration in time range) And sodium chloride 0.9% (NS) (has no administration in time range) Laboratory Results Labs Reviewed D-DIMER, QUANTITATIVE - Abnormal; Notable for the following components: Result Value D-Dimer 1.60 (*) All other components within normal limits Narrative: A D-dimer concentration of <0.5 micrograms per milliliter FEU is considered a low probability for pulmonary embolus (PE) and deep venous thrombosis (DVT). Results of this test should always be interpreted in conjunction with the patient's medical history,clinical presentation, and other findings. Clinical diagnosis should not be based on the results of the D-dimer alone. CHEM 7 - Abnormal; Notable for the following components: Glucose 177 (*) All other components within normal limits Narrative: [facility] has implemented the eGFR calculation approach that does not have a coefficient for race that conforms to the NKF-ASN Task Force Recommendations. CBC WITH AUTO DIFFERENTIAL - Abnormal; Notable for the following components: RDW - CV 16.6 (*) All other components within normal limits PT/INR - Normal Narrative: During the induction phase of oral anticoagulation, the INR may not reflect the anticoagulation status of the patient. Therapeutic ranges for INR's are: Most clinical situations: INR 2.0-3.0 Mechanical Prosthetic Valve: INR 2.5-3.5 Critical: INR >5.0 NT PRO BNP - Normal Narrative: Pride Study Cut-offs Rule In: < /= 50 Years >450 pg/mL 51 Years - 75 Years >900 pg/mL 76 Years - 99 Years >1800 pg/mL Rule Out: All patients <300 pg/mL TSH WITH REFLEX FREE T4 - Normal TROPONIN CBC AND DIFFERENTIAL Narrative: The following orders were created for panel order CBC w/ Diff. Procedure Abnormality Status --------- ------ CBC Auto Differential[[id number]] Abnormal Final result Please view results for these tests on the individual orders. Imaging Results XR Chest 1 View (Results Pending) Ultrasound Duplex Venous Arm LEFT (Results Pending) CT Head Or Brain Without Contrast (Results Pending) Procedures . documented in this [id number] Note* Plan of Care - Svetlana Monaco RN - 06/10/2022 1:34 PM EST Problem: Actual or potential alteration in health Goal: Absence of healthcare acquired conditions Outcome: Partially Met Goal: Knowledge of Interdisciplinary Plan of Care Outcome: Partially Met Goal: Knowledge of Enviroment Outcome: Partially Met Problem: Pain Goal: Manage acute pain Outcome: Partially Met Goal: Manage chronic pain Outcome: Partially Met Goal: Reduced pain sensation Outcome: Partially Met Goal: Achievement of comfort function goal Outcome: Partially Met Problem: Bleeding, Risk of Goal: Absence of impaired coagulation signs and symptoms Outcome: Partially Met Problem: Plan for Discharge Goal: Knowledge of discharge plan and instructions Outcome: Partially Met [id number] History of Present illness Narrative* [facility] ([place], [place]) - 06/10/2022 1:26 PM EST Vascular Surgery Inpatient Consult 06/10/2022 [facility] Patient: Scott Obregon Date of : 1960 (61 y.o.) Referring Provider: Refer to consult order in electronic medical record PCP: Ying Quispe, ASSESSMENT/PLAN: Scott Obregon 61 y.o. female with history of 1/2 PPD tobacco use for 20 years presents for worsening LUE swelling and pain for the past week. Ultrasound duplex with finding of acute DVT in the subclavian and axillary veins. Will start her on heparin drip here. This is her 1st episode of VTE and will have her continue anticoagulation for 6 months outpatient. Will also provide compression sleeveand educated patient on elevating arm. - Will start heparin drip here and continue 6 months of anticoagulation outpatient. Will provide compression sleeve. - Coagulation workup per hospitalist -Recommend consult to hematology SUBJECTIVE: Chief Complaint/Reason for Visit: Left upper extremity swelling and pain History of Present Illness: Scott Obregon is a 61 y.o. female with history of 1/2 PPD tobacco use x 20 years presents to theED for 1 week of left upper extremity swelling. Patient reports she has been taking nifedipine for the past 5 days for suspected Raynaud's Syndrome by her PCP due to blue discoloration in her hands. She continued to have swelling in her arm and was told to go to the ED today where DVT in the subclavian and axillary veins was found. Reports occasional shooting pain down her arm that is better witha heating pad. No known trauma or injury to her extremity. No shortness of breath. She reports a history of possible hematoma in her elbow as a child, however no known history of clotting. No recent surgery or hospitalization. No family history of clotting disorder. Denies history of malignancy, norecent unexpected weight loss. Pending Lab and Radiology Results Order Current Status CT Head Or Brain Without Contrast Preliminary result Review of Systems: Constitutional:No fever, no weight loss Eyes:No diplopia CV:No chest pain. No ankle swelling Resp:No dyspnea. No wheezing GI:No abdominal pain.No abdominal distention Integumentary: Left hand discoloration MuscSkel:No arthralgias Heme/lymphatic: LUE swelling. No apparent lymphadenopathy All other systems reviewed and negative other than HPI Past Medical History: Diagnosis Date Anemia Appendicitis 2019 Disease of thyroid gland Hypothyroidism Hyperlipidemia Hypertension borderline Right hip pain previous PCP said has inflammation had cortisone injection in past w/ no help Past Surgical History: Procedure Laterality Date APPENDECTOMY APPENDECTOMY LAPAROSCOPIC N/A 09/14/2018 Procedure: APPENDECTOMY LAPAROSCOPIC; Surgeon: Татьяна Jenkins MD; Location: Main OR; Service: General Surgery Family History Problem Relation Age of Onset Heart disease Father Hypertension Father Cancer Father colon Diabetes Father Heart disease Sister Diabetes Sister Hypertension Sister Thyroid disease Mother Kidney disease Mother Breast cancer Sister Thyroid disease Sister Social History Tobacco Use Smoking Status Some Days Packs/day: 0.50 Years: 20.00 Pack years: 10.00 Types: Cigarettes Start date: 05/05/1996 Smokeless Tobacco Never Additional History Comments: None Allergies: Iodine and iodide containing products Current HOSPITAL Medications: acetaminophen (TYLENOL) tablet 650 mg, 650 mg, Oral, Q4H PRN heparin (porcine) 25,000 unit/250 mL(100 unit/mL) in D5W infusion, 0-70 Units/kg/hr, Intravenous, Continuous heparin bolus from bag 0-10,000 Units, 0-10,000 Units, Intravenous, Continuous PRN levothyroxine (SYNTHROID, LEVOTHROID) tablet 125 mcg, 125 mcg, Oral, Daily NIFEdipine 24 hr tablet 30 mg, 30 mg, Oral, Daily ondansetron (ZOFRAN-ODT) disintegrating tablet 4 mg, 4 mg, Oral, Q6H PRN OR ondansetron (ZOFRAN) injection 4 mg, 4 mg, Intravenous, Q6H PRN Insert peripheral IV, , , Once AND Saline lock IV, , , Once AND sodium chloride (PF) (NS) flush 5 mL, 5 mL, Intravenous, PRN AND sodium chloride 0.9% (NS), 0-150 mL/hr, Intravenous, PRN Saline lock IV, , , Continuous AND sodium chloride (PF) (NS) flush 5 mL, 5 mL, Intravenous, PRNAND sodium chloride (PF) (NS) flush 5 mL, 5 mL, Intravenous, Q8H JORGE L AND sodium chloride 0.9% (NS), 0-150 mL/hr, Intravenous, PRN OBJECTIVE: Physical Examination: BP (!) 159/89 Pulse 91 Temp 98.7 F (37.1 C) (Oral) Resp 18 Ht 5' 11 Wt 77.1 kg (170 lb) SpO2 96% BMI 23.71 kg/m General Appearance: Alert, well appearing, and in no acute distress. HEENT: Head - Normocephalic, atraumatic. Neck: Supple, trachea midline. Cardiovascular: S1, S2 normal. No murmurs, rubs, clicks or gallops appreciated. No pedal edema.Goodradial pulses, warm. Respiratory: Lungs clear to auscultation, no wheezes, rales or rhonchi heard. Neurological: Grossly normal motor and sensory exam. No focal deficits. Musculoskeletal: Slight swelling to LUE. Sensation intact in hands and full range of motion. No joint tenderness or deformity. Skin: Discoloration in left hand. No rashes. Psych: Alert, oriented x 3. Normal mood and affect. Laboratory and Additional Data Reviewed: Reviewed 06/10/22 2:09 PM: Laboratory Ultrasound duplex left arm 06/10/22: Conclusions * Left. * Acute deep vein thrombosis in the subclavian and axillary veins of the left upper extremity. * All other deep veins visualized are normally patent. * No evidence of superficial thrombosis of the left cephalic and basilic veins. documented in this [id number] History and physical note* Adia Rodriguez MD - 06/10/2022 1:25 PM EST [facility] HISTORY AND PHYSICAL -- [facility] Patient Name: Scott Obregon : 1960 MR #: [id number] Admit Date: 06/10/2022 Physicians: Ying Quispe DO (Family); No ref. provider found (Referring) Scott Obregon is a 61 y.o. female patient of Ying Quispe DO with history of Hypothyroidism, hypertension, hyperlipidemia, who presented to the emergency room with left arm swelling, foundto have acute DVT. Patient presented on June 06 to primary care physician with bilateral hand paler with subsequent bluish discoloration, without pain she was started on nifedipine for clinical diagnosis of Raynaud'sphenomenon, in the last 2 days, she has worsening left arm swelling, patient underwent ultrasound of the left arm which showed acute DVT in the subclavian and axillary veins, no evidence of superficial thrombosis. Patient denies self or family history of hypercoagulability, no chest pain, no shortness of breath, no leg swelling. Denies recent peripheral or central line placement. Acute DVT of the left arm in the subclavian and axillary vein Strong pulse, warm hands, good perfusion pallor and bluish discoloration is bilaterally in the hands, likely different etiology. Started on heparin drip by ED, will continue for now, transition to Eliquis loading dose at the time of discharge, follow-up with hematology as outpatient. Warm compression, Tylenol planned for pain Vascular surgery attending evaluate the imaging, no further imaging or intervention granted, recommended outpatient follow-up with hematology. Will check factor V and prothrombin mutation Bilateral pale fingers with bluish discoloration of the hands, clinically consistent with Raynaud'sphenomena Agree with outpatient nifedipine and monitor for symptoms improvement in the next 1 to 2 weeks, Hypothyroidism, levothyroxine Code Status: Full Code Medication Reconciliation: Verified Residence prior to admission: house or apartment Was patient transferred from outlying hospital or ED no Quality Measures DVT Prophylaxis: heparin gtt Gutiérrez Catheter: absent Risk variables present on admission:None. Please see assessment and plan for further details. Chief Complaint left arm swelling History of Present Illness Scott Obregon is a 61 y.o. female patient of Ying Quispe DO with history of Hypothyroidism, hypertension, hyperlipidemia, who presented to the emergency room with left arm swelling, foundto have acute DVT. Patient presented on June 06 to primary care physician with bilateral hand paler with subsequent bluish discoloration, without pain she was started on nifedipine for clinical diagnosis of Raynaud'sphenomenon, in the last 2 days, she has worsening left arm swelling, patient underwent ultrasound of the left arm which showed acute DVT in the subclavian and axillary veins, no evidence of superficial thrombosis. Patient denies self or family history of hypercoagulability, no chest pain, no shortness of breath, no leg swelling. Denies recent peripheral or central line placement. Past Medical History Past Medical History: Diagnosis Date Anemia Appendicitis 2018 Disease of thyroid gland Hypothyroidism Hyperlipidemia Hypertension borderline Right hip pain previous PCP said has inflammation had cortisone injection in past w/ no help Past Surgical History Past Surgical History: Procedure Laterality Date APPENDECTOMY APPENDECTOMY LAPAROSCOPIC N/A 09/14/2018 Procedure: APPENDECTOMY LAPAROSCOPIC; Surgeon: Татьяна Jenkins MD; Location: Main OR; Service: General Surgery Family History Family History Problem Relation Age of Onset Heart disease Father Hypertension Father Cancer Father colon Diabetes Father Heart disease Sister Diabetes Sister Hypertension Sister Thyroid disease Mother Kidney disease Mother Breast cancer Sister Thyroid disease Sister Social History Social History Tobacco Use Smoking Status Some Days Packs/day: 0.50 Years: 20.00 Pack years: 10.00 Types: Cigarettes Start date: 05/05/1996 Smokeless Tobacco Never Social History Substance and Sexual Activity Alcohol Use Not Currently Comment: Occassionally Social History Substance and Sexual Activity Drug Use No Allergy Information I have reviewed the patient's allergies. Iodine and iodide containing products Home Medications Home medications were reviewed. Review Of Systems All systems have been reviewed and are negative except as noted in HPI or below Physical Examination BP (!) 159/89 Pulse 91 Temp 98.7 F (37.1 C) (Oral) Resp 18 Ht 5' 11 Wt 77.1 kg (170 lb) SpO2 96% BMI 23.71 kg/m General Appearance: alert; well appearing; in no acute distress HEENT: Head- normocephalic; Eyes- EOMI, sclera anicteric; Ears- hearing intact; Nose- no nasal discharge; Throat- mucous membranes moist Cardiovascular: regular rate and rhythm; normal S1, S2; no murmurs, rubs, clicks or gallops; no peripheral edema, strong pulse in both radial arteries Respiratory: lungs clear to auscultation; without wheezes, rales or rhonchi; on room air Abdomen: soft, non-tender, non-distended; positive bowel sounds Neurological: oriented x 3; normal speech; no focal findings or movement disorder noted, intact sensation in both hands Musculoskeletal: Left arm swelling Skin: Bilateral fingers blue color, warm fingers Psych: normal mood and affect Laboratory and Additional Data Reviewed Laboratory 06/10/22 1:33 PM Microbiology 06/10/22 1:33 PM Radiology 06/10/22 1:33 PM Cardiology 06/10/22 1:33 PM Medications 06/10/22 1:33 PM [facility] Work Phone: [phone] History and physical note* Adia Rodriguez MD - 06/10/2022 1:25 PM EST [facility] HISTORY AND PHYSICAL -- [facility] Patient Name: Scott Obregon : 1960 MR #: [id number] Admit Date: 06/10/2022 Physicians: Ying Quispe DO (Family); No ref. provider found (Referring) Scott Obregon is a 61 y.o. female patient of Ying Quispe DO with history of Hypothyroidism, hypertension, hyperlipidemia, who presented to the emergency room with left arm swelling, foundto have acute DVT. Patient presented on June 06 to primary care physician with bilateral hand paler with subsequent bluish discoloration, without pain she was started on nifedipine for clinical diagnosis of Raynaud'sphenomenon, in the last 2 days, she has worsening left arm swelling, patient underwent ultrasound of the left arm which showed acute DVT in the subclavian and axillary veins, no evidence of superficial thrombosis. Patient denies self or family history of hypercoagulability, no chest pain, no shortness of breath, no leg swelling. Denies recent peripheral or central line placement. Acute DVT of the left arm in the subclavian and axillary vein Strong pulse, warm hands, good perfusion pallor and bluish discoloration is bilaterally in the hands, likely different etiology. Started on heparin drip by ED, will continue for now, transition to Eliquis loading dose at the time of discharge, follow-up with hematology as outpatient. Warm compression, Tylenol planned for pain Vascular surgery attending evaluate the imaging, no further imaging or intervention granted, recommended outpatient follow-up with hematology. Will check factor V and prothrombin mutation Bilateral pale fingers with bluish discoloration of the hands, clinically consistent with Raynaud'sphenomena Agree with outpatient nifedipine and monitor for symptoms improvement in the next 1 to 2 weeks, Hypothyroidism, levothyroxine Code Status: Full Code Medication Reconciliation: Verified Residence prior to admission: house or apartment Was patient transferred from outlying hospital or ED no Quality Measures DVT Prophylaxis: heparin gtt Gutiérrez Catheter: absent Risk variables present on admission:None. Please see assessment and plan for further details. Chief Complaint left arm swelling History of Present Illness Scott Obregon is a 61 y.o. female patient of Ying Quispe DO with history of Hypothyroidism, hypertension, hyperlipidemia, who presented to the emergency room with left arm swelling, foundto have acute DVT. Patient presented on June 06 to primary care physician with bilateral hand paler with subsequent bluish discoloration, without pain she was started on nifedipine for clinical diagnosis of Raynaud'sphenomenon, in the last 2 days, she has worsening left arm swelling, patient underwent ultrasound of the left arm which showed acute DVT in the subclavian and axillary veins, no evidence of superficial thrombosis. Patient denies self or family history of hypercoagulability, no chest pain, no shortness of breath, no leg swelling. Denies recent peripheral or central line placement. Past Medical History Past Medical History: Diagnosis Date Anemia Appendicitis 2019 Disease of thyroid gland Hypothyroidism Hyperlipidemia Hypertension borderline Right hip pain previous PCP said has inflammation had cortisone injection in past w/ no help Past Surgical History Past Surgical History: Procedure Laterality Date APPENDECTOMY APPENDECTOMY LAPAROSCOPIC N/A 09/14/2018 Procedure: APPENDECTOMY LAPAROSCOPIC; Surgeon: Татьяна Jenkins MD; Location: Main OR; Service: General Surgery Family History Family History Problem Relation Age of Onset Heart disease Father Hypertension Father Cancer Father colon Diabetes Father Heart disease Sister Diabetes Sister Hypertension Sister Thyroid disease Mother Kidney disease Mother Breast cancer Sister Thyroid disease Sister Social History Social History Tobacco Use Smoking Status Some Days Packs/day: 0.50 Years: 20.00 Pack years: 10.00 Types: Cigarettes Start date: 05/05/1996 Smokeless Tobacco Never Social History Substance and Sexual Activity Alcohol Use Not Currently Comment: Occassionally Social History Substance and Sexual Activity Drug Use No Allergy Information I have reviewed the patient's allergies. Iodine and iodide containing products Home Medications Home medications were reviewed. Review Of Systems All systems have been reviewed and are negative except as noted in HPI or below Physical Examination BP (!) 159/89 Pulse 91 Temp 98.7 F (37.1 C) (Oral) Resp 18 Ht 5' 11 Wt 77.1 kg (170 lb) SpO2 96% BMI 23.71 kg/m General Appearance: alert; well appearing; in no acute distress HEENT: Head- normocephalic; Eyes- EOMI, sclera anicteric; Ears- hearing intact; Nose- no nasal discharge; Throat- mucous membranes moist Cardiovascular: regular rate and rhythm; normal S1, S2; no murmurs, rubs, clicks or gallops; no peripheral edema, strong pulse in both radial arteries Respiratory: lungs clear to auscultation; without wheezes, rales or rhonchi; on room air Abdomen: soft, non-tender, non-distended; positive bowel sounds Neurological: oriented x 3; normal speech; no focal findings or movement disorder noted, intact sensation in both hands Musculoskeletal: Left arm swelling Skin: Bilateral fingers blue color, warm fingers Psych: normal mood and affect Laboratory and Additional Data Reviewed Laboratory 06/10/22 1:33 PM Microbiology 06/10/22 1:33 PM Radiology 06/10/22 1:33 PM Cardiology 06/10/22 1:33 PM Medications 06/10/22 1:33 PM documented in this [id number] Emergency department Note* Mendez Ariza RN - 06/10/2022 12:30 PM EST Report called to floor nurse. [id number] Emergency department Note* Mendez rAiza RN - 06/10/2022 12:30 PM EST Report called to floor nurse. * Mendez Ariza RN - 06/10/2022 11:21 AM EST [facility]. thisnurse told to hold IV and heparin at this time. Pt may be going home and will be started on oral meds. No other needs. SRx2. Call light in reach. * Bambi Whyte PA-C - 06/10/2022 9:08 AM EST [facility] EMERGENCY DEPARTMENT XIAO NOTE: NAME: Scott Obregon CSN: [id number] 61 y.o. PCP: Ying Quispe DO History: Chief Complaint: Arm Swelling HPI: The history was obtained from the patient. Scott is a 61 y.o. female who presents with a chief complaint of Arm Swelling. Patient states that she has been experiencing left shoulder lateral neck pain and discomfort for the past 2- 3 weeks. Patient states over the last 5 days she started developing left upper extremity arm swelling. She states that she also noted some discoloration to her bilateral hands left worse than right and was seen by her primary care physician who expressed concernfor possible onset of Raynaud's disorder. Patient was started on nifedipine by her PCP. She continued to have increased swelling and discomfort to the left upper extremity and was advised by her PCP to present to the emergency room for further work-up. Patient is denying any shortness of breath palpitations, paresthesias, radiculopathy, mechanism of injury/trauma or any other symptoms associated with her current complaint. PMHx: Past Medical History: Diagnosis Date Anemia Appendicitis 2019 Disease of thyroid gland Hypothyroidism Hyperlipidemia Hypertension borderline Right hip pain previous PCP said has inflammation had cortisone injection in past w/ no help PMSx: Past Surgical History: Procedure Laterality Date APPENDECTOMY APPENDECTOMY LAPAROSCOPIC N/A 09/14/2018 Procedure: APPENDECTOMY LAPAROSCOPIC; Surgeon: Татьяна Jenkins MD; Location: Main OR; Service: General Surgery FAM. Hx: Family History Problem Relation Age of Onset Heart disease Father Hypertension Father Cancer Father colon Diabetes Father Heart disease Sister Diabetes Sister Hypertension Sister Thyroid disease Mother Kidney disease Mother Breast cancer Sister Thyroid disease Sister SOC. Hx: Social History Socioeconomic History Marital status: Tobacco Use Smoking status: Some Days Packs/day: 0.50 Years: 20.00 Pack years: 10.00 Types: Cigarettes Start date: 05/05/1996 Smokeless tobacco: Never Vaping Use Vaping Use: Never used Substance and Sexual Activity Alcohol use: Not Currently Comment: Occassionally Drug use: No Sexual activity: Not Currently Partners: Male MEDs: Previous Medications Medication Sig levothyroxine (SYNTHROID, LEVOTHROID) 125 MCG tablet Take 1 (one) tablet (125 mcg total) by mouth daily . multivitamin (THERAGRAN) per tablet Take 1 (one) tablet by mouth daily . NIFEdipine (PROCARDIA XL) 30 MG 24 hr tablet Take 1 (one) tablet (30 mg total) by mouth daily . omega-3 fatty acids-fish oil 340-1,000 mg cap Take 1 (one) capsule by mouth daily . ALL: Allergies Allergen Reactions Iodine And Iodide Containing Products GI Intolerance Seafood, Vomiting ROS: Review of Systems Musculoskeletal: Positive for myalgias. All other systems reviewed and are negative. Positives and pertinent negatives as per HPI. All other systems were reviewed and are negative. Physical Exam: Patient Vitals for the past 24 hrs: BP Pulse Resp SpO2 Height Weight 06/10/22 0854 (!) 177/80 98 18 100 % -- -- 06/10/22 0851 -- -- -- -- 5' 11 77.1 kg (170 lb) Physical Exam Vitals and nursing note reviewed. HENT: Head: Normocephalic and atraumatic. Nose: Nose normal. Eyes: General: Lids are normal. No scleral icterus. Cardiovascular: Rate and Rhythm: Normal rate and regular rhythm. Heart sounds: Normal heart sounds. No murmur heard. Musculoskeletal: Right lower leg: No swelling. No edema. Left lower leg: No swelling. No edema. Pulmonary: Effort: Pulmonary effort is normal. No respiratory distress. Breath sounds: Normal breath sounds. No decreased breath sounds, wheezing, rhonchi or rales. Skin: General: Skin is warm. Comments: Noted subtle discoloration to the bilateral distal aspect of the fingers/thumbs. Calf refill less than 3 seconds noted on examination Neurological: Mental Status: She is alert. Motor: Motor function is intact. Coordination: Coordination is intact. Psychiatric: Mood and Affect: Mood normal. Behavior: Behavior normal. Behavior is cooperative. Laboratory & Radiological Imaging (if done): Labs Reviewed D-DIMER, QUANTITATIVE - Abnormal; Notable for the following components: Result Value D-Dimer 1.60 (*) All other components within normal limits Narrative: A D-dimer concentration of <0.5 micrograms per milliliter FEU is considered a low probability for pulmonary embolus (PE) and deep venous thrombosis (DVT). Results of this test should always be interpreted in conjunction with the patient's medical history,clinical presentation, and other findings. Clinical diagnosis should not be based on the results of the D-dimer alone. CHEM 7 - Abnormal; Notable for the following components: Glucose 177 (*) All other components within normal limits Narrative: [facility] has implemented the eGFR calculation approach that does not have a coefficient for race that conforms to the NKF-ASN Task Force Recommendations. CBC WITH AUTO DIFFERENTIAL - Abnormal; Notable for the following components: RDW - CV 16.6 (*) All other components within normal limits PT/INR - Normal Narrative: During the induction phase of oral anticoagulation, the INR may not reflect the anticoagulation status of the patient. Therapeutic ranges for INR's are: Most clinical situations: INR 2.0-3.0 Mechanical Prosthetic Valve: INR 2.5-3.5 Critical: INR >5.0 NT PRO BNP - Normal Narrative: Pride Study Cut-offs Rule In: < /= 50 Years >450 pg/mL 51 Years - 75 Years >900 pg/mL 76 Years - 99 Years >1800 pg/mL Rule Out: All patients <300 pg/mL TSH WITH REFLEX FREE T4 - Normal TROPONIN CBC AND DIFFERENTIAL Narrative: The following orders were created for panel order CBC w/ Diff. Procedure Abnormality Status --------- ------ CBC Auto Differential[[id number]] Abnormal Final result Please view results for these tests on the individual orders. CBC XR Chest 1 View Final Result No acute heart or lung disease identified. Workstation ID: [id number] CT Head Or Brain Without Contrast Preliminary Result No intracranial hemorrhage or mass effect. ST/ads Workstation ID: [id number] Ultrasound Duplex Venous Arm LEFT Final Result MDM: ED Course as of 06/10/22 1201 MonJun 10, 2022 1104 Ultrasound Duplex Venous Arm LEFT [WL] ED Course User Index [WL] Bambi Whyte PA-C Consulted hospitalist in regards to the acute axillary/subclavian DVT that was noted on vascular Doppler study. Hospitalist indicated that the patient could be discharged home, however, this provideras well as the attending physician both expressed concern due to the acuity of upper extremity edema that has been noted over the last 24 hours per patient. In addition, patient is also experiencing l eft-sided neck and chest discomfort. Due to these findings, it was determined by the attending physician and this provider that the patient would benefit from a 24-hour admission to the hospital. Hospitalist has admitted the patient we will consult vascular recreation center director. This provider spoke with Dr. Pierce vascular surgeon, he will consult with hospitalist as needed. Clinical Impression: 1. Acute deep vein thrombosis (DVT) of axillary vein of left upper extremity (HCC) 2. Chest pain, unspecified type Disposition: ED Disposition ED Disposition Hospitalize Condition -- Comment Phone call required?: No Bambi Whtye PA-C ED Advanced Practice Provider [facility] EMERGENCY DEPARTMENT (Please note that portions of this note have been completed with a voice recognition software. Efforts were made to correct any errors, but occasionally words are mis-transcribed.) Bambi Whyte PA-C 06/10/22 1145 Bambi Whyte PA-C 06/10/22 1201 * Mendez Ariza RN - 06/10/2022 8:52 AM EST Pt arrives to ED or edema to L arm and pain to L shoulder. Pt states pain started in L shoulder a few weeks ago. Pt states edema started 5 days ago. Pt states edema has stayed the same. Pt has blue discoloration to L fingers that started same time as edema. Pt denies any paresthesia but has coolnesto L fingers. Pt in no distress. GCS 15. * Leanne Taylor - 06/10/2022 8:48 AM EST Bed: 15 Expected date: Expected time: Means of arrival: Comments: NEXT PT 1 documented in this [id number] Note* Plan of Care - Adia Rodriguez MD - 06/10/2022 11:38 AM EST Evaluated the patient at bedside, presenting with 1 week of left arm swelling. Ultrasound showing acute DVT of the subclavian and axillary vein of the left upper extremity. Discussed with ED physician who was concerned about the left arm swelling complications. This patient would benefit from Eliquis loading then maintenance dose of follow-up with hematology. Given concern for left significant left arm swelling Per ED, recommended vascular surgery consult to see if any imaging/work-up or intervention indicated, if no intervention from vascular standpoint, patient can be placed directly on oral anticoagulation other than heparin drip. Full consult note will follow. [id number] Note* Mendez Ariza RN - 06/10/2022 11:21 AM EST [facility]. thisnurse told to hold IV and heparin at this time. Pt may be going home and will be started on oral meds. No other needs. SRx2. Call light in reach. [id number]* ED Attestation Note - Shira Lopez MD - 06/10/2022 10:15 AM EST I personally interviewed the patient. I personally examined the patient. I discussed the patient with COORDINATOR OF REHABILITATION SERVICES/PA. I agree with the COORDINATOR OF REHABILITATION SERVICES/PA treatment plan. I agree with the COORDINATOR OF REHABILITATION SERVICES/PA plan of care. I agree with the COORDINATOR OF REHABILITATION SERVICES/PA dispo as documented. Patient is a 61-year-old female presents to the ED complaints of pain and swelling left upper arm all the way to the left hand with discoloration and numbness and tingling of the hand intermittent for a week with no traumas no falls. Patient states that she did see her PCP last week for this she was told she had Raynaud's phenomena she reports a previous history of a DVT secondary to trauma several years ago and she also states she has had chest discomfort , patient is not on anticoagulants andno previous history of a PE reported, initial work-up in the ED venous duplex ultrasound is positive for DVT and blood work noted elevated D-dimer unable to get a PE study due to anaphylactic reaction to the dye and a CT brain will be ordered if negative for any bleed patient will be started on heparin she will be admitted for further management. Patient Vitals for the past 24 hrs: BP Pulse Resp SpO2 Height Weight 06/10/22 0854 (!) 177/80 98 18 100 % -- -- 06/10/22 0851 -- -- -- -- 77.1 kg (170 lb) Medications Administered (if any) Medications sodium chloride (PF) (NS) flush 5 mL (has no administration in time range) And sodium chloride 0.9% (NS) (has no administration in time range) Laboratory Results Labs Reviewed D-DIMER, QUANTITATIVE - Abnormal; Notable for the following components: Result Value D-Dimer 1.60 (*) All other components within normal limits Narrative: A D-dimer concentration of <0.5 micrograms per milliliter FEU is considered a low probability for pulmonary embolus (PE) and deep venous thrombosis (DVT). Results of this test should always be interpreted in conjunction with the patient's medical history,clinical presentation, and other findings. Clinical diagnosis should not be based on the results of the D-dimer alone. CHEM 7 - Abnormal; Notable for the following components: Glucose 177 (*) All other components within normal limits Narrative: [facility] has implemented the eGFR calculation approach that does not have a coefficient for race that conforms to the NKF-ASN Task Force Recommendations. CBC WITH AUTO DIFFERENTIAL - Abnormal; Notable for the following components: RDW - CV 16.6 (*) All other components within normal limits PT/INR - Normal Narrative: During the induction phase of oral anticoagulation, the INR may not reflect the anticoagulation status of the patient. Therapeutic ranges for INR's are: Most clinical situations: INR 2.0-3.0 Mechanical Prosthetic Valve: INR 2.5-3.5 Critical: INR >5.0 NT PRO BNP - Normal Narrative: Pride Study Cut-offs Rule In: < /= 50 Years >450 pg/mL 51 Years - 75 Years >900 pg/mL 76 Years - 99 Years >1800 pg/mL Rule Out: All patients <300 pg/mL TSH WITH REFLEX FREE T4 - Normal TROPONIN CBC AND DIFFERENTIAL Narrative: The following orders were created for panel order CBC w/ Diff. Procedure Abnormality Status --------- ------ CBC Auto Differential[[id number]] Abnormal Final result Please view results for these tests on the individual orders. Imaging Results XR Chest 1 View (Results Pending) Ultrasound Duplex Venous Arm LEFT (Results Pending) CT Head Or Brain Without Contrast (Results Pending) Procedures . [id number] Physician Emergency department Note* Bambi Whyte PA-C - 06/10/2022 9:08 AM EST [facility] EMERGENCY DEPARTMENT XIAO NOTE: NAME: Scott Obregon CSN: [id number] 61 y.o. PCP: Ying Quispe DO History: Chief Complaint: Arm Swelling HPI: The history was obtained from the patient. Scott is a 61 y.o. female who presents with a chief complaint of Arm Swelling. Patient states that she has been experiencing left shoulder lateral neck pain and discomfort for the past 2- 3 weeks. Patient states over the last 5 days she started developing left upper extremity arm swelling. She states that she also noted some discoloration to her bilateral hands left worse than right and was seen by her primary care physician who expressed concernfor possible onset of Raynaud's disorder. Patient was started on nifedipine by her PCP. She continued to have increased swelling and discomfort to the left upper extremity and was advised by her PCP to present to the emergency room for further work-up. Patient is denying any shortness of breath palpitations, paresthesias, radiculopathy, mechanism of injury/trauma or any other symptoms associated with her current complaint. PMHx: Past Medical History: Diagnosis Date Anemia Appendicitis 2019 Disease of thyroid gland Hypothyroidism Hyperlipidemia Hypertension borderline Right hip pain previous PCP said has inflammation had cortisone injection in past w/ no help PMSx: Past Surgical History: Procedure Laterality Date APPENDECTOMY APPENDECTOMY LAPAROSCOPIC N/A 09/14/2018 Procedure: APPENDECTOMY LAPAROSCOPIC; Surgeon: Татьяна Jenkins MD; Location[place]; Service: General Surgery FAM. Hx: Family History Problem Relation Age of Onset Heart disease Father Hypertension Father Cancer Father colon Diabetes Father Heart disease Sister Diabetes Sister Hypertension Sister Thyroid disease Mother Kidney disease Mother Breast cancer Sister Thyroid disease Sister SOC. Hx: Social History Socioeconomic History Marital status: Tobacco Use Smoking status: Some Days Packs/day: 0.50 Years: 20.00 Pack years: 10.00 Types: Cigarettes Start date: 05/05/1996 Smokeless tobacco: Never Vaping Use Vaping Use: Never used Substance and Sexual Activity Alcohol use: Not Currently Comment: Occassionally Drug use: No Sexual activity: Not Currently Partners: Male MEDs: Previous Medications Medication Sig levothyroxine (SYNTHROID, LEVOTHROID) 125 MCG tablet Take 1 (one) tablet (125 mcg total) by mouth daily . multivitamin (THERAGRAN) per tablet Take 1 (one) tablet by mouth daily . NIFEdipine (PROCARDIA XL) 30 MG 24 hr tablet Take 1 (one) tablet (30 mg total) by mouth daily . omega-3 fatty acids-fish oil 340-1,000 mg cap Take 1 (one) capsule by mouth daily . ALL: Allergies Allergen Reactions Iodine And Iodide Containing Products GI Intolerance Seafood, Vomiting ROS: Review of Systems Musculoskeletal: Positive for myalgias. All other systems reviewed and are negative. Positives and pertinent negatives as per HPI. All other systems were reviewed and are negative. Physical Exam: Patient Vitals for the past 24 hrs: BP Pulse Resp SpO2 Height Weight 06/10/22 0854 (!) 177/80 98 18 100 % -- -- 06/10/22 0851 -- -- -- -- 5' 11 77.1 kg (170 lb) Physical Exam Vitals and nursing note reviewed. HENT: Head: Normocephalic and atraumatic. Nose: Nose normal. Eyes: General: Lids are normal. No scleral icterus. Cardiovascular: Rate and Rhythm: Normal rate and regular rhythm. Heart sounds: Normal heart sounds. No murmur heard. Musculoskeletal: Right lower leg: No swelling. No edema. Left lower leg: No swelling. No edema. Pulmonary: Effort: Pulmonary effort is normal. No respiratory distress. Breath sounds: Normal breath sounds. No decreased breath sounds, wheezing, rhonchi or rales. Skin: General: Skin is warm. Comments: Noted subtle discoloration to the bilateral distal aspect of the fingers/thumbs. Calf refill less than 3 seconds noted on examination Neurological: Mental Status: She is alert. Motor: Motor function is intact. Coordination: Coordination is intact. Psychiatric: Mood and Affect: Mood normal. Behavior: Behavior normal. Behavior is cooperative. Laboratory & Radiological Imaging (if done): Labs Reviewed D-DIMER, QUANTITATIVE - Abnormal; Notable for the following components: Result Value D-Dimer 1.60 (*) All other components within normal limits Narrative: A D-dimer concentration of <0.5 micrograms per milliliter FEU is considered a low probability for pulmonary embolus (PE) and deep venous thrombosis (DVT). Results of this test should always be interpreted in conjunction with the patient's medical history,clinical presentation, and other findings. Clinical diagnosis should not be based on the results of the D-dimer alone. CHEM 7 - Abnormal; Notable for the following components: Glucose 177 (*) All other components within normal limits Narrative: [facility] has implemented the eGFR calculation approach that does not have a coefficient for race that conforms to the NKF-ASN Task Force Recommendations. CBC WITH AUTO DIFFERENTIAL - Abnormal; Notable for the following components: RDW - CV 16.6 (*) All other components within normal limits PT/INR - Normal Narrative: During the induction phase of oral anticoagulation, the INR may not reflect the anticoagulation status of the patient. Therapeutic ranges for INR's are: Most clinical situations: INR 2.0-3.0 Mechanical Prosthetic Valve: INR 2.5-3.5 Critical: INR >5.0 NT PRO BNP - Normal Narrative: Pride Study Cut-offs Rule In: < /= 50 Years >450 pg/mL 51 Years - 75 Years >900 pg/mL 76 Years - 99 Years >1800 pg/mL Rule Out: All patients <300 pg/mL TSH WITH REFLEX FREE T4 - Normal TROPONIN CBC AND DIFFERENTIAL Narrative: The following orders were created for panel order CBC w/ Diff. Procedure Abnormality Status --------- ------ CBC Auto Differential[[id number]] Abnormal Final result Please view results for these tests on the individual orders. CBC XR Chest 1 View Final Result No acute heart or lung disease identified. Workstation ID: [id number] CT Head Or Brain Without Contrast Preliminary Result No intracranial hemorrhage or mass effect. ST/ads Workstation ID: [id number] Ultrasound Duplex Venous Arm LEFT Final Result MDM: ED Course as of 06/10/22 1201 MonJun 10, 2022 1104 Ultrasound Duplex Venous Arm LEFT [WL] ED Course User Index [WL] Bambi Whyte PA-C Consulted hospitalist in regards to the acute axillary/subclavian DVT that was noted on vascular Doppler study. Hospitalist indicated that the patient could be discharged home, however, this provideras well as the attending physician both expressed concern due to the acuity of upper extremity edema that has been noted over the last 24 hours per patient. In addition, patient is also experiencing l eft-sided neck and chest discomfort. Due to these findings, it was determined by the attending physician and this provider that the patient would benefit from a 24-hour admission to the hospital. Hospitalist has admitted the patient we will consult vascular recreation center director. This provider spoke with Dr. Pierce vascular surgeon, he will consult with hospitalist as needed. Clinical Impression: 1. Acute deep vein thrombosis (DVT) of axillary vein of left upper extremity (HCC) 2. Chest pain, unspecified type Disposition: ED Disposition ED Disposition Hospitalize Condition -- Comment Phone call required?: No Bambi Whyte PA-C ED Advanced Practice Provider [facility] EMERGENCY DEPARTMENT (Please note that portions of this note have been completed with a voice recognition software. Efforts were made to correct any errors, but occasionally words are mis-transcribed.) Bambi Whyte PA-C 06/10/22 1145 Bambi Whyte PA-C 06/10/22 1201 [address] [id number] Emergency department Triage note* Mendez Ariza RN - 06/10/2022 8:52 AM EST Pt arrives to ED or edema to L arm and pain to L shoulder. Pt states pain started in L shoulder a few weeks ago. Pt states edema started 5 days ago. Pt states edema has stayed the same. Pt has blue discoloration to L fingers that started same time as edema. Pt denies any paresthesia but has coolnesto L fingers. Pt in no distress. GCS 15. [id number] Emergency department Note* Leanne Taylor - 06/10/2022 8:48 AM EST Bed: 15 Expected date: Expected time: Means of arrival: Comments: NEXT PT [address] [place] [id number] History of Present illness Narrative* Ying Quispe DO - 06/06/2022 11:48 AM EST Images from the original note were not included. HPI 2 weeks of hand/feet white/bluish worse with weather changes. 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 Denies fever, arthrralgias dysphagia, sclerodacty is a smoker and seeing masseuse for myalgias. Will check tsh and sed rate today... Vitals: 06/06/22 1121 BP: 130/80 Temp: 98.1 F (36.7 C) Pulse: 80 Resp: 16 PT WEIGHT Weight 06/06/2022 179 lb 3.2 oz 04/06/2022 178 lb 6.4 oz 01/05/2022 183 lb 3.2 oz 11/18/2021 190 lb BP Readings from Last 4 Encounters: 06/06/22 130/80 04/06/22 121/76 01/05/22 126/70 11/25/21 136/82 Past Medical History: Diagnosis Date Anemia Appendicitis 2019 Disease of thyroid gland Hypothyroidism Hyperlipidemia Hypertension borderline Right hip pain previous PCP said has inflammation had cortisone injection in past w/ no help Past Surgical History: Procedure Laterality Date APPENDECTOMY APPENDECTOMY LAPAROSCOPIC N/A 09/14/2018 Procedure: APPENDECTOMY LAPAROSCOPIC; Surgeon: Татьяна Jenkins MD; Location: Main OR; Service: General Surgery Social History Socioeconomic History Marital status: Tobacco Use Smoking status: Some Days Packs/day: 0.50 Years: 20.00 Pack years: 10.00 Types: Cigarettes Start date: 05/05/1996 Smokeless tobacco: Never Vaping Use Vaping Use: Never used Substance and Sexual Activity Alcohol use: Not Currently Comment: Occassionally Drug use: No Sexual activity: Not Currently Partners: Male Family History Problem Relation Age of Onset Heart disease Father Hypertension Father Cancer Father colon Diabetes Father Heart disease Sister Diabetes Sister Hypertension Sister Thyroid disease Mother Kidney disease Mother Breast cancer Sister Thyroid disease Sister Current Outpatient Medications Medication Sig Dispense Refill levothyroxine (SYNTHROID, LEVOTHROID) 125 MCG tablet Take 1 (one) tablet (125 mcg total) by mouth daily . 90 tablet 3 multivitamin (THERAGRAN) per tablet Take 1 (one) tablet by mouth daily . omega-3 fatty acids-fish oil 340-1,000 mg cap Take 1 (one) capsule by mouth daily . No current facility-administered medications for this visit. PHQ-9 Depression Screening - 06/06/22 1100 Over the last 2 weeks, how often have you been bothered by any of the following problems? (Retired)Little interest or pleasure in doing things -- Little interest or pleasure in doing things 1 (Retired)Feeling down, depressed, or hopeless -- Feeling down, depressed, or hopeless 0 PHQ-2 Total Score 1 Trouble falling or staying asleep, or sleeping too much 2 Feeling tired or having little energy 2 Poor appetite or overeating 0 Feeling bad about yourself - or that you are a failure or have let yourself or your family down 0 Trouble concentrating on things, such as reading the newspaper or watching television 0 Moving or speaking so slowly that other people could have noticed. Or the opposite - being so fidgety or restless that you have been moving around a lot more than usual 0 Thoughts that you would be better off , or of hurting yourself in some way 0 PHQ-9 Total Score 5 RETIRED - PHQ-9 Total Score -- If you checked off any problems, how difficult have these problems made it for you to do your work,take care of things at home, or get along with other people? Somewhat difficult PHQ-2 Total Score -- Goals None Review of Systems Physical Exam Vitals reviewed. Constitutional: General: She is not in acute distress. HENT: Right Ear: There is no impacted cerumen. Left Ear: There is no impacted cerumen. Cardiovascular: Rate and Rhythm: Normal rate and regular rhythm. Pulmonary: Effort: Pulmonary effort is normal. Breath sounds: Normal breath sounds. Musculoskeletal: General: Normal range of motion. Comments: Reynaud changes fingers/toes Neurological: Mental Status: She is alert and oriented to person, place, and time. Mental status is at baseline. There are no diagnoses linked to this encounter. Diagnoses and all orders for this visit: Raynaud's phenomenon without gangrene start today if not better in a [facility] return if ok will see in spring/summer as scheduled avoid extreme temps, stop smoking. - Sedimentation Rate; Future - NIFEdipine (PROCARDIA XL) 30 MG 24 hr tablet; Take 1 (one) tablet (30 mg total) by mouth daily . Hypothyroidism, unspecified type - TSH with Reflex Free T4; Future For any new medications prescribed today, patient was educated about indications for the medication, how to take the medication and potential side effects of the medications. * Ying Quispe DO - 06/06/2022 11:47 AM EST Depression Screening 01/01/2018 01/14/2019 09/29/2020 05/12/2021 01/05/2022 06/06/2022 Little interest or pleasure in doing things 0 0 0 0 0 1 Feeling down, depressed, or hopeless 0 0 0 0 0 0 PHQ-2 Total Score 0 0 0 0 0 1 Trouble falling or staying asleep, or sleeping too much 0 0 0 - - 2 Feeling tired or having little energy 0 0 0 - - 2 Poor appetite or overeating 0 0 0 - - 0 Feeling bad about yourself - or that you are a failure or have let yourself or your family down 0 00 - - 0 Trouble concentrating on things, such as reading the newspaper or watching television 0 0 0 - - 0 Moving or speaking so slowly that other people could have noticed. Or the opposite - being so fidgety or restless that you have been moving around a lot more than usual 0 0 0 - - 0 Thoughts that you would be better off , or of hurting yourself in some way 0 0 0 - - 0 PHQ-9 Total Score 0 0 0 - - 5 If you checked off any problems, how difficult have these problems made it for you to do your work,take care of things at home, or get along with other people? - - Not difficult at all - - Somewhat difficult documented in this [id number] History of Present illness Narrative* Ying Quispe DO - 04/06/2022 11:54 AM EST Images from the original note were not included. HPI Cough for a month little production, fever, little runny nose, not short of breath... Vitals: 04/06/22 1117 BP: 121/76 Temp: 98.5 F (36.9 C) Pulse: 81 Resp: 16 SpO2: 96% PT WEIGHT Weight 04/06/2022 178 lb 6.4 oz 01/05/2022 183 lb 3.2 oz 11/18/2021 190 lb 06/21/2021 186 lb 9.6 oz BP Readings from Last 4 Encounters: 04/06/22 121/76 01/05/22 126/70 11/25/21 136/82 11/18/21 138/70 Past Medical History: Diagnosis Date Anemia Appendicitis 2019 Disease of thyroid gland Hypothyroidism Hyperlipidemia Hypertension borderline Right hip pain previous PCP said has inflammation had cortisone injection in past w/ no help Past Surgical History: Procedure Laterality Date APPENDECTOMY APPENDECTOMY LAPAROSCOPIC N/A 09/14/2018 Procedure: APPENDECTOMY LAPAROSCOPIC; Surgeon: Татьяна Jenkins MD; Location: Main OR; Service: General Surgery Social History Socioeconomic History Marital status: Tobacco Use Smoking status: Some Days Packs/day: 0.50 Years: 20.00 Pack years: 10.00 Types: Cigarettes Start date: 05/05/1996 Smokeless tobacco: Never Vaping Use Vaping Use: Never used Substance and Sexual Activity Alcohol use: Not Currently Comment: Occassionally Drug use: No Sexual activity: Not Currently Partners: Male Social Determinants of Health Food Insecurity: No Food Insecurity Worried About Running Out of Food in the Last Year: Never true Ran Out of Food in the Last Year: Never true Transportation Needs: No Transportation Needs Lack of Transportation (Medical): No Lack of Transportation (Non-Medical): No Social Connections: Unknown Frequency of Communication with Friends and Family: Once a week Housing Stability: Unknown Unable to Pay for Housing in the Last Year: No Family History Problem Relation Age of Onset Heart disease Father Hypertension Father Cancer Father colon Diabetes Father Heart disease Sister Diabetes Sister Hypertension Sister Thyroid disease Mother Kidney disease Mother Breast cancer Sister Thyroid disease Sister Current Outpatient Medications Medication Sig Dispense Refill levothyroxine (SYNTHROID, LEVOTHROID) 125 MCG tablet Take 1 (one) tablet (125 mcg total) by mouth daily . 90 tablet 3 multivitamin (THERAGRAN) per tablet Take 1 tablet by mouth daily . omega-3 fatty acids-fish oil 340-1,000 mg cap Take 1 capsule by mouth daily . gabapentin (NEURONTIN) 300 MG capsule Take 1 (one) capsule (300 mg total) by mouth at bedtime (Dayssupply per fill: 30) . (Patient not taking: No sig reported) 30 capsule 0 No current facility-administered medications for this visit. PHQ-9 Depression Screening No documentation. Goals None Review of Systems Constitutional: Negative. HENT: Positive for rhinorrhea. Eyes: Negative. Respiratory: Positive for cough. Negative for shortness of breath and stridor. Cardiovascular: Negative. Physical Exam Vitals reviewed. Constitutional: General: She is not in acute distress. HENT: Right Ear: There is no impacted cerumen. Left Ear: There is no impacted cerumen. Nose: Nose normal. Mouth/Throat: Mouth: Mucous membranes are moist. Eyes: Extraocular Movements: Extraocular movements intact. Pupils: Pupils are equal, round, and reactive to light. Cardiovascular: Rate and Rhythm: Normal rate and regular rhythm. Pulmonary: Effort: Pulmonary effort is normal. Breath sounds: Normal breath sounds. Neurological: Mental Status: She is alert. There are no diagnoses linked to this encounter. Diagnoses and all orders for this visit: Acute non-recurrent maxillary sinusitis - doxycycline hyclate (VIBRAMYCIN) 100 MG capsule; Take 1 (one) capsule (100 mg total) by mouth 2 (two) times a day for 10 days . For any new medications prescribed today, patient was educated about indications for the medication, how to take the medication and potential side effects of the medications. documented in this [id number] History of Present illness Narrative* Felicity Olson, EUGENE - 01/05/2022 4:27 PM EDT Images from the original note were not included. Subjective Patient ID: Scott Obregon is a 61 y.o. female. Wound Check She was originally treated 5 to 10 days ago. Previous treatment included wound cleansing or irrigation. There has been no drainage from the wound. The redness has improved. The swelling has improved.The pain has improved. She has no difficulty moving the affected extremity or digit. The following portions of the patient's history were reviewed and updated as appropriate: She has apast medical history of Anemia, Appendicitis (2019), Disease of thyroid gland, Hyperlipidemia, Hypertension, and Right hip pain. She does not have any pertinent problems on file. She has a past surgical history that includes Appendectomy Laparoscopic (N/A, 09/14/2018). Her family history includes Breast cancer in her sister; Cancer in her father; Diabetes in her father and sister; Heart disease in her father and sister; Hypertension in her father and sister; Kidneydisease in her mother; Thyroid disease in her mother and sister. She reports that she has been smoking cigarettes. She started smoking about 25 years ago. She has a10.00 pack-year smoking history. She has never used smokeless tobacco. She reports current alcohol use. She reports that she does not use drugs. Current Outpatient Medications Medication Sig Dispense Refill levothyroxine (SYNTHROID, LEVOTHROID) 125 MCG tablet Take 1 (one) tablet (125 mcg total) by mouth daily . 90 tablet 3 multivitamin (THERAGRAN) per tablet Take 1 tablet by mouth daily . omega-3 fatty acids-fish oil 340-1,000 mg cap Take 1 capsule by mouth daily . cephALEXin (KEFLEX) 500 MG capsule Take 1 (one) capsule (500 mg total) by mouth 2 (two) times a dayfor 7 days . 14 capsule 0 gabapentin (NEURONTIN) 300 MG capsule Take 1 (one) capsule (300 mg total) by mouth at bedtime (Dayssupply per fill: 30) . (Patient not taking: Reported on 01/05/2022 .) 30 capsule 0 No current facility-administered medications for this visit. . Review of Systems Constitutional: Negative for fatigue. Skin: Positive for wound. Objective Physical Exam Constitutional: Appearance: Normal appearance. Skin: Neurological: Mental Status: She is alert. Assessment/Plan: Diagnoses and all orders for this visit: Toe infection - cephALEXin (KEFLEX) 500 MG capsule; Take 1 (one) capsule (500 mg total) by mouth 2 (two) times a day for 7 days . Electronically signed by Felicity Olson CWKaren Depression Screening 01/01/2018 01/14/2019 09/29/2020 05/12/2021 01/05/2022 Little interest or pleasure in doing things 0 0 0 0 0 Feeling down, depressed, or hopeless 0 0 0 0 0 PHQ-2 Total Score 0 0 0 0 0 Trouble falling or staying asleep, or sleeping too much 0 0 0 - - Feeling tired or having little energy 0 0 0 - - Poor appetite or overeating 0 0 0 - - Feeling bad about yourself - or that you are a failure or have let yourself or your family down 0 00 - - Trouble concentrating on things, such as reading the newspaper or watching television 0 0 0 - - Moving or speaking so slowly that other people could have noticed. Or the opposite - being so fidgety or restless that you have been moving around a lot more than usual 0 0 0 - - Thoughts that you would be better off , or of hurting yourself in some way 0 0 0 - - PHQ-9 Total Score 0 0 0 - - If you checked off any problems, how difficult have these problems made it for you to do your work,take care of things at home, or get along with other people? - - Not difficult at all - - documented in this [id number] History of Present illness Narrative* Yfn Puckett Jr., DP - 11/25/2021 4:43 PM EDT Tingling and burning bilaterally. Follow-up right heel wart, radhaidin. Patient is a pleasant 61-year-old female following up today for distal peripheral neuropathy style pain. Complains of tingling and burning states its generally always there. Additionally states he has to work great on her heel she thinks its gone. Physical exam vascular: DP PT pulses are palpable. CFT is fair no edema. Derm: Plantar heel site is fully resolved. No longer any pinpoint bleeding or gapping draining Option skin lines. Neuro: Light touch is blunted Babinski's is blunted. Musculoskeletal: Muscle strength is 5/5 fair tone. Can easily wiggle toes any clicking or catching.Ankle subtalar is full and pain-free. Assessment and plan: Patient is a pleasant 61-year-old female with resolution of her right heel wart and distal idiopathic neuropathy. Regarding the wart no repeat cantharidin required today. New-can follow-up if this returns. -Regarding her neuropathy, did start her on a trial dose of gabapentin 300 mg nightly for 30 days 30 tabs 0 refills after you clean OARRS report. Follow-up in 30 days to reevaluate distal pain. Low medical complexity decision making. documented in this [id number] History of Present illness Narrative* Ying Zahraallan Quispe, DO - 11/18/2021 8:23 AM EDT Images from the original note were not included. HPI Here for wellness labs, tingling feet dr. Lavern fuller an hgaic, was prediabetic with cmp 10/21/2021. Tsh ok...hgaic,cbc,lipids under wellness to do at [facility]. Cologuard, mammogram and dexascan ordered.....here 11/18/2021 Vitals: 11/18/21 0801 BP: 138/70 Temp: 98.3 F (36.8 C) Pulse: 66 Resp: 16 PT WEIGHT Weight 11/18/2021 190 lb 06/21/2021 186 lb 9.6 oz 05/12/2021 181 lb 3.2 oz 09/29/2020 196 lb 8 oz BP Readings from Last 4 Encounters: 11/18/21 138/70 11/11/21 131/78 06/21/21 126/80 06/17/21 135/84 Past Medical History: Diagnosis Date Anemia Appendicitis 2019 Disease of thyroid gland Hypothyroidism Hyperlipidemia Hypertension borderline Right hip pain previous PCP said has inflammation had cortisone injection in past w/ no help Past Surgical History: Procedure Laterality Date APPENDECTOMY LAPAROSCOPIC N/A 09/14/2018 Procedure: APPENDECTOMY LAPAROSCOPIC; Surgeon: Татьяна Jenkins MD; Location: Main OR; Service: General Surgery Social History Socioeconomic History Marital status: Tobacco Use Smoking status: Some Days Packs/day: 0.50 Years: 20.00 Pack years: 10.00 Types: Cigarettes Start date: 05/05/1996 Smokeless tobacco: Never Vaping Use Vaping Use: Never used Substance and Sexual Activity Alcohol use: Yes Comment: Occassionally Drug use: No Sexual activity: Not Currently Partners: Male Social Determinants of Health Food Insecurity: No Food Insecurity Worried About Running Out of Food in the Last Year: Never true Ran Out of Food in the Last Year: Never true Transportation Needs: No Transportation Needs Lack of Transportation (Medical): No Lack of Transportation (Non-Medical): No Social Connections: Unknown Frequency of Communication with Friends and Family: Once a week Housing Stability: Unknown Unable to Pay for Housing in the Last Year: No Family History Problem Relation Age of Onset Heart disease Father Hypertension Father Cancer Father colon Diabetes Father Heart disease Sister Diabetes Sister Hypertension Sister Thyroid disease Mother Kidney disease Mother Breast cancer Sister Thyroid disease Sister Current Outpatient Medications Medication Sig Dispense Refill levothyroxine (SYNTHROID, LEVOTHROID) 125 MCG tablet Take 1 (one) tablet (125 mcg total) by mouth daily . 90 tablet 3 multivitamin (THERAGRAN) per tablet Take 1 tablet by mouth daily . omega-3 fatty acids-fish oil 340-1,000 mg cap Take 1 capsule by mouth daily . No current facility-administered medications for this visit. PHQ-9 Depression Screening No documentation. Goals None Review of Systems Constitutional: Negative for chills, fever and unexpected weight change. HENT: Negative for ear pain, mouth sores, sinus pain, sore throat and trouble swallowing. Eyes: Negative for photophobia and pain. Respiratory: Negative for cough and shortness of breath. Cardiovascular: Negative for chest pain, palpitations and leg swelling. Gastrointestinal: Negative for abdominal pain, blood in stool, constipation and nausea. Endocrine: Negative for polydipsia and polyuria. Genitourinary: Negative for dysuria and frequency. Musculoskeletal: Negative for back pain and gait problem. Skin: Negative for rash. Allergic/Immunologic: Negative for immunocompromised state. Neurological: Negative for dizziness and weakness. Hematological: Negative for adenopathy. Does not bruise/bleed easily. Psychiatric/Behavioral: Negative for dysphoric mood and hallucinations. The patient is not nervous/anxious. Physical Exam Vitals reviewed. Constitutional: Appearance: Normal appearance. She is well-developed. She is not ill-appearing. HENT: Head: Normocephalic and atraumatic. Right Ear: Tympanic membrane, ear canal and external ear normal. Left Ear: Tympanic membrane, ear canal and external ear normal. Nose: Nose normal. Mouth/Throat: Mouth: Mucous membranes are moist. Eyes: Extraocular Movements: Extraocular movements intact. Conjunctiva/sclera: Conjunctivae normal. Pupils: Pupils are equal, round, and reactive to light. Comments: Xantholasmas bilat under eye Cardiovascular: Rate and Rhythm: Normal rate and regular rhythm. Heart sounds: Normal heart sounds. No murmur heard. Pulmonary: Effort: Pulmonary effort is normal. Breath sounds: Normal breath sounds. No wheezing. Chest: Chest wall: No tenderness. Abdominal: General: Bowel sounds are normal. Palpations: Abdomen is soft. There is no mass. Tenderness: There is no abdominal tenderness. There is no guarding or rebound. Musculoskeletal: General: No tenderness or deformity. Cervical back: Normal range of motion and neck supple. Lymphadenopathy: Cervical: No cervical adenopathy. Skin: General: Skin is warm and dry. Findings: No rash. Neurological: Mental Status: She is alert and oriented to person, place, and time. Mental status is at baseline. Deep Tendon Reflexes: Reflexes are normal and symmetric. Psychiatric: Mood and Affect: Mood normal. Behavior: Behavior normal. Thought Content: Thought content normal. Judgment: Judgment normal. Diagnoses and all orders for this visit: Diagnoses and all orders for this visit: Routine general medical examination at a health care facility sees dr. Puckett next wk going to [facility] tomorrow. Encouraged smoking.... - Lipid Panel; Future - Hemoglobin A1c; Future - CBC and Differential; Future Post-menopause - XR Bone Density DEXA Axial; Future Encounter for screening mammogram for malignant neoplasm of breast - Mammography Screening Jose Bilateral; Future Colon cancer screening - Cologuard Hypothyroidism, unspecified type - levothyroxine (SYNTHROID, LEVOTHROID) 125 MCG tablet; Take 1 (one) tablet (125 mcg total) by mouth daily . For any new medications prescribed today, patient was educated about indications for the medication, how to take the medication and potential side effects of the medications. * Lelia Willis CMA - 11/18/2021 7:51 AM EDT Health Maintenance Tetanus- Unknown last Shingles- never had Mammogram- over due will take order Colonoscopy- never had- wants to wait Pap Smear- unknown- still has cervix Dexa Scan- will take order Lipid- Due not fasting documented in this [id number] Telephone encounter Note* Telephone Encounter - Arlette Benavidez RN - 11/05/2021 2:39 PM EDT ----- Message from Mary Shaver sent at 11/05/2021 2:00 PM EDT ----- Regarding: Refill MEDICATION REFILL REQUEST: PCP: Ying Quispe DO Patient called 11/05/21 and is requesting a medication refill for levothyroxine (SYNTHROID, LEVOTHROID) 125 MCG tablet This was confirmed from the current medication list found in the patients chart. Supply Requested: # of days: 30 days Method of receiving: Send to pharmacy Last set of flowsheet rows for OARRS report: OARRS/NARxCHECK Report Received and Assessed: No data found Date controlled substance agreement signed: No data found Date of last drug screen: No data found Functional Assessment: No data found Will this refill be sent to the preferred pharmacy listed below? No, only for this refill. Please send to Preferred pharmacies: [id number] - [place], [place] - [address] [address] Pt Call Back Number Patient call back message sent to the primary care clinical pool. Mary Shaver [id number] Miscellaneous Notes* Telephone Encounter - Arlette Benavidez RN - 11/05/2021 2:39 PM EDT ----- Message from Mary Shaver sent at 11/05/2021 2:00 PM EDT ----- Regarding: Refill MEDICATION REFILL REQUEST: PCP: Ying Quispe DO Patient called 11/05/21 and is requesting a medication refill for levothyroxine (SYNTHROID, LEVOTHROID) 125 MCG tablet This was confirmed from the current medication list found in the patients chart. Supply Requested: # of days: 30 days Method of receiving: Send to pharmacy Last set of flowsheet rows for OARRS report: OARRS/NARxCHECK Report Received and Assessed: No data found Date controlled substance agreement signed: No data found Date of last drug screen: No data found Functional Assessment: No data found Will this refill be sent to the preferred pharmacy listed below? No, only for this refill. Please send to Preferred pharmacies: [id number] - [place], [place] - [address] [facility] [address] [place] [address] Pt Call Back Number Patient call back message sent to the primary care clinical pool. Mary Shaver documented in this [id number] History of Present illness Narrative* Ying Zahra Brittaney, DO - 06/21/2021 3:12 PM EST Images from the original note were not included. HPI Sore throat/cough/sinus congestion 2 weeks, covid is negative. No odynophagia/dysphagia Vitals: 06/21/21 1444 BP: 126/80 Temp: 98.6 F (37 C) Pulse: 86 Resp: 16 PT WEIGHT Weight 06/21/2021 186 lb 9.6 oz 05/12/2021 181 lb 3.2 oz 09/29/2020 196 lb 8 oz 12/06/2019 192 lb BP Readings from Last 4 Encounters: 06/21/21 126/80 06/17/21 135/84 05/12/21 (!) 93/53 09/29/20 138/85 Past Medical History: Diagnosis Date Anemia Appendicitis 2019 Disease of thyroid gland Hypothyroidism Hyperlipidemia Hypertension borderline Right hip pain previous PCP said has inflammation had cortisone injection in past w/ no help Past Surgical History: Procedure Laterality Date APPENDECTOMY LAPAROSCOPIC N/A 09/14/2018 Procedure: APPENDECTOMY LAPAROSCOPIC; Surgeon: Татьяна Jenkins MD; Location: Main OR; Service: General Surgery Social History Socioeconomic History Marital status: Tobacco Use Smoking status: Current Some Day Smoker Packs/day: 0.50 Years: 20.00 Pack years: 10.00 Types: Cigarettes Start date: 05/05/1996 Smokeless tobacco: Never Used Vaping Use Vaping Use: Never used Substance and Sexual Activity Alcohol use: Yes Comment: Occassionally Drug use: No Sexual activity: Not Currently Partners: Male Social Determinants of Health Financial Resource Strain: Low Risk Difficulty of Paying Living Expenses: Not hard at all Food Insecurity: No Food Insecurity Worried About Running Out of Food in the Last Year: Never true Ran Out of Food in the Last Year: Never true Transportation Needs: No Transportation Needs Lack of Transportation (Medical): No Lack of Transportation (Non-Medical): No Social Connections: Unknown Frequency of Communication with Friends and Family: Once a week Frequency of Social Gatherings with Friends and Family: Three times a week Housing Stability: Unknown Unable to Pay for Housing in the Last Year: No Family History Problem Relation Age of Onset Heart disease Father Hypertension Father Cancer Father colon Diabetes Father Heart disease Sister Diabetes Sister Hypertension Sister Thyroid disease Mother Kidney disease Mother Breast cancer Sister Thyroid disease Sister Current Outpatient Medications Medication Sig Dispense Refill levothyroxine (SYNTHROID, LEVOTHROID) 125 MCG tablet Take 1 (one) tablet (125 mcg total) by mouth daily . 90 tablet 3 multivitamin (multivitamin) per tablet Take 1 tablet by mouth daily . omega-3 fatty acids-fish oil 340-1,000 mg cap Take 1 capsule by mouth daily . urea 40 % Lotn Apply 1 application topically 2 (two) times a day . 226.8 g 1 No current facility-administered medications for this visit. PHQ-9 Depression Screening No documentation. Goals None Review of Systems Constitutional: Negative. HENT: Positive for postnasal drip and sore throat. Eyes: Negative. Respiratory: Positive for cough. Negative for shortness of breath and stridor. Gastrointestinal: Negative. Physical Exam Vitals and nursing note reviewed. Constitutional: Appearance: Normal appearance. She is well-developed. She is not ill-appearing. HENT: Head: Normocephalic and atraumatic. Right Ear: Tympanic membrane, ear canal and external ear normal. Left Ear: Tympanic membrane, ear canal and external ear normal. Nose: Nose normal. Mouth/Throat: Pharynx: Oropharynx is clear. Posterior oropharyngeal erythema (diffuse sore throat lexie no masses.)present. Eyes: Extraocular Movements: Extraocular movements intact. Conjunctiva/sclera: Conjunctivae normal. Pupils: Pupils are equal, round, and reactive to light. Cardiovascular: Rate and Rhythm: Normal rate and regular rhythm. Heart sounds: Normal heart sounds. No murmur heard. Pulmonary: Effort: Pulmonary effort is normal. Breath sounds: Normal breath sounds. No wheezing. Chest: Chest wall: No tenderness. Abdominal: Palpations: There is no mass. Tenderness: There is no rebound. Musculoskeletal: General: No tenderness or deformity. Cervical back: Normal range of motion and neck supple. Lymphadenopathy: Cervical: No cervical adenopathy. Skin: General: Skin is warm and dry. Neurological: Mental Status: She is alert and oriented to person, place, and time. Mental status is at baseline. Deep Tendon Reflexes: Reflexes are normal and symmetric. Psychiatric: Mood and Affect: Mood normal. Behavior: Behavior normal. Thought Content: Thought content normal. Judgment: Judgment normal. There are no diagnoses linked to this encounter. Diagnoses and all orders for this visit: Acute non-recurrent maxillary sinusitis if not better/sore throat remains in 2 weeks call will get dr. rivera to look at it.. - amoxicillin-clavulanate (Augmentin) 875-125 mg per tablet; Take 1 (one) tablet by mouth 2 (two) times a day for 10 days . For any new medications prescribed today, patient was educated about indications for the medication, how to take the medication and potential side effects of the medications. documented in this [id number] History of Present illness Narrative* Yfn Puckett Jr., YELITZA - 06/17/2021 4:47 PM EST HPI Chief Complaint Patient presents with Plantar Warts Possible wart right heel. She will dig out then they will grow back. Cyst Possible cyst left arch x 1 year. Bumps are hard. Patient is a pleasant 60-year-old female who comes in today for concern for wart to her right heel and some bumps to the bottom of her left foot. She states that the bumps she has noticed now for couple of months though they are not painful she can see them but she cannot really feel them. States they do not hurt her but she would like to know what they are and why they are. Additionally states that she has a bump on the bottom of her right heel and is concerned that it is a wart. Has not treated but comes in today to have this evaluated. Past Medical History: Diagnosis Date Anemia Appendicitis 2019 Disease of thyroid gland Hypothyroidism Hyperlipidemia Hypertension borderline Right hip pain previous PCP said has inflammation had cortisone injection in past w/ no help Past Surgical History: Procedure Laterality Date APPENDECTOMY LAPAROSCOPIC N/A 09/14/2018 Procedure: APPENDECTOMY LAPAROSCOPIC; Surgeon: Татьяна Jenkins MD; Location: Main OR; Service: General Surgery Social History Socioeconomic History Marital status: Tobacco Use Smoking status: Current Some Day Smoker Packs/day: 0.50 Years: 20.00 Pack years: 10.00 Types: Cigarettes Start date: 05/05/1996 Smokeless tobacco: Never Used Vaping Use Vaping Use: Never used Substance and Sexual Activity Alcohol use: Yes Comment: Occassionally Drug use: No Sexual activity: Not Currently Partners: Male Social Determinants of Health Financial Resource Strain: Low Risk Difficulty of Paying Living Expenses: Not hard at all Food Insecurity: No Food Insecurity Worried About Running Out of Food in the Last Year: Never true Ran Out of Food in the Last Year: Never true Transportation Needs: No Transportation Needs Lack of Transportation (Medical): No Lack of Transportation (Non-Medical): No Social Connections: Unknown Frequency of Communication with Friends and Family: Once a week Frequency of Social Gatherings with Friends and Family: Three times a week Housing Stability: Unknown Unable to Pay for Housing in the Last Year: No Review of Systems Constitutional: Negative for chills and fever. Respiratory: Negative for shortness of breath. Cardiovascular: Negative for chest pain, palpitations and leg swelling. Musculoskeletal: Negative for myalgias, neck pain and neck stiffness. Skin: Positive for color change and wound. Negative for rash. Physical Exam -Patient is AOx3. Linear and appropriate humor and thought process. Vascular: DP PT pulses are faintly palpable. CFT is fair no edema. Derm: Does have dependent rubor present, from her longstanding tobacco. Right heel is with a 3 mm x 3 mm lifted and pitted nucleated lesion no pinpoint bleeding with debridement no interruption in skin lines no undermining. Left plantar arch is with 3 separate 1 cm x 1 cm masses in her plantar fascia. The track with her fascia are not adhered to overlying skin and are not none transilluminate Mahendra. No fascial pain with compression of palpation. Ankle subtalar is full and pain-free. X-rays AP oblique lateral: No fractures no dislocations no subluxations. No tumors appreciated. Impression/Plan Problem List Items Addressed This Visit None Visit Diagnoses Ganglion cyst of left foot - Primary Relevant Orders XR Foot Left 3+ Views (Standard) Patient is a pleasant female with a right heel irretractable plantar keratosis and 3 left midfoot plantar fascial fibromatosis. -Reviewed x-rays -Regarding her right heel, did discuss etiology. Start topical urea 40% twice daily for 90 days. Ifthis is no better can convert and use cantharidin. -Regarding her left midfoot, did go over options today including dexamethasone injections though she declined as she states her pain is really not that bad. Additionally if this gets worse after treatment could consider MRI with excision however again pain is mild. Low medical complexity decision making. documented in this [id number] History of Present illness Narrative* Ying Quispe, DO - 05/12/2021 10:04 AM EST Images from the original note were not included. HPI \ Here to establish, sriram alvares's daughter. Chart reviewed, labs every year in the future. Getting back into [employer] for hips. Doesn't do paps/mamogram/dexascans. Doesn't do shots. The 10-year ASCVD risk score (Shellyshania SANFORD Jr., et al., 2013) is: 4.7% Values used to calculate the score: Age: 60 years Sex: Female Is Non- : No Diabetic: No Tobacco smoker: Yes Systolic Blood Pressure: 93 mmHg Is BP treated: No HDL Cholesterol: 38 mg/dL Total Cholesterol: 220 mg/dL 60-year-old female with history of hypothyroidism, chronic hip pain, hyperlipidemia. Currently taking levothyroxine. Compliant with medication and thyroid levels are normal. She is euthyroid clinically. Continues to be bothered by hip pain left more than right. Walking up an incline or climbing steps on the most uncomfortable. It limits her ability to exercise but she can work throughout the day without problems. Has previously consulted with orthopedics who thought that this was bursitis but she did not get relief from the steroid injection and physical therapy. She has not returned for reevaluation Vitals: 05/12/21 0936 BP: (!) 93/53 Temp: 98.6 F (37 C) Pulse: 78 Resp: 16 PT WEIGHT Weight 05/12/2021 181 lb 3.2 oz 09/29/2020 196 lb 8 oz 12/06/2019 192 lb 03/25/2019 200 lb 4.8 oz BP Readings from Last 4 Encounters: 05/12/21 (!) 93/53 09/29/20 138/85 03/25/19 135/83 01/14/19 130/76 Past Medical History: Diagnosis Date Anemia Appendicitis 2019 Disease of thyroid gland Hypothyroidism Hyperlipidemia Hypertension borderline Right hip pain previous PCP said has inflammation had cortisone injection in past w/ no help Past Surgical History: Procedure Laterality Date APPENDECTOMY LAPAROSCOPIC N/A 09/14/2018 Procedure: APPENDECTOMY LAPAROSCOPIC; Surgeon: Татьяна Jenkins MD; Location: Main OR; Service: General Surgery Social History Socioeconomic History Marital status: Tobacco Use Smoking status: Current Some Day Smoker Packs/day: 0.50 Years: 20.00 Pack years: 10.00 Types: Cigarettes Start date: 05/05/1996 Smokeless tobacco: Never Used Vaping Use Vaping Use: Never used Substance and Sexual Activity Alcohol use: Yes Comment: Occassionally Drug use: No Sexual activity: Not Currently Partners: Male Social Determinants of Health Financial Resource Strain: Low Risk Difficulty of Paying Living Expenses: Not hard at all Food Insecurity: No Food Insecurity Worried About Running Out of Food in the Last Year: Never true Ran Out of Food in the Last Year: Never true Transportation Needs: No Transportation Needs Lack of Transportation (Medical): No Lack of Transportation (Non-Medical): No Social Connections: Unknown Frequency of Communication with Friends and Family: Once a week Frequency of Social Gatherings with Friends and Family: Three times a week Housing Stability: Unknown Unable to Pay for Housing in the Last Year: No Family History Problem Relation Age of Onset Heart disease Father Hypertension Father Cancer Father colon Diabetes Father Heart disease Sister Diabetes Sister Hypertension Sister Thyroid disease Mother Kidney disease Mother Breast cancer Sister Thyroid disease Sister Current Outpatient Medications Medication Sig Dispense Refill levothyroxine (SYNTHROID, LEVOTHROID) 125 MCG tablet Take 1 (one) tablet (125 mcg total) by mouth daily . 90 tablet 3 multivitamin (multivitamin) per tablet Take 1 tablet by mouth daily . omega-3 fatty acids-fish oil 340-1,000 mg cap Take 1 capsule by mouth daily . No current facility-administered medications for this visit. PHQ-9 Depression Screening - 05/12/21 0944 Over the last 2 weeks, how often have you been bothered by any of the following problems? (Retired)Little interest or pleasure in doing things Little interest or pleasure in doing things 0 (Retired)Feeling down, depressed, or hopeless Feeling down, depressed, or hopeless 0 PHQ-2 Total Score 0 Trouble falling or staying asleep, or sleeping too much Feeling tired or having little energy Poor appetite or overeating Feeling bad about yourself - or that you are a failure or have let yourself or your family down Trouble concentrating on things, such as reading the newspaper or watching television Moving or speaking so slowly that other people could have noticed. Or the opposite - being so fidgety or restless that you have been moving around a lot more than usual Thoughts that you would be better off , or of hurting yourself in some way PHQ-9 Total Score RETIRED - PHQ-9 Total Score If you checked off any problems, how difficult have these problems made it for you to do your work,take care of things at home, or get along with other people? PHQ-2 Total Score Goals None Review of Systems Constitutional: Negative. HENT: Negative. Respiratory: Negative. Cardiovascular: Negative. Gastrointestinal: Negative. Genitourinary: Negative. Musculoskeletal: Positive for arthralgias (bila hips). Neurological: Negative. Hematological: Negative. Psychiatric/Behavioral: Negative. Physical Exam Vitals reviewed. Constitutional: Appearance: Normal appearance. She is well-developed. She is not ill-appearing. HENT: Head: Normocephalic and atraumatic. Right Ear: Tympanic membrane, ear canal and external ear normal. Left Ear: Tympanic membrane, ear canal and external ear normal. Nose: Nose normal. Mouth/Throat: Mouth: Mucous membranes are moist. Pharynx: Oropharynx is clear. Eyes: Extraocular Movements: Extraocular movements intact. Conjunctiva/sclera: Conjunctivae normal. Pupils: Pupils are equal, round, and reactive to light. Cardiovascular: Rate and Rhythm: Normal rate and regular rhythm. Heart sounds: Normal heart sounds. No murmur heard. Pulmonary: Effort: Pulmonary effort is normal. Breath sounds: Normal breath sounds. No wheezing. Chest: Chest wall: No tenderness. Abdominal: General: Bowel sounds are normal. Palpations: Abdomen is soft. There is no mass. Tenderness: There is no abdominal tenderness. There is no guarding or rebound. Musculoskeletal: General: No tenderness or deformity. Cervical back: Normal range of motion and neck supple. Lymphadenopathy: Cervical: No cervical adenopathy. Skin: General: Skin is warm and dry. Findings: No rash. Neurological: Mental Status: She is alert and oriented to person, place, and time. Mental status is at baseline. Deep Tendon Reflexes: Reflexes are normal and symmetric. Psychiatric: Mood and Affect: Mood normal. Behavior: Behavior normal. Thought Content: Thought content normal. Judgment: Judgment normal. There are no diagnoses linked to this encounter. Diagnoses and all orders for this visit: Hypothyroidism, unspecified type Will check yearly on next visit in 6 mos.. Hyperlipidemia, unspecified hyperlipidemia type will do yearly wellness/labs in 6 mos.. For any new medications prescribed today, patient was educated about indications for the medication, how to take the medication and potential side effects of the medications. * Ying Quispe DO - 05/12/2021 10:03 AM EST Depression Screening 01/01/2018 01/14/2019 09/29/2020 05/12/2021 Little interest or pleasure in doing things 0 0 0 0 Feeling down, depressed, or hopeless 0 0 0 0 PHQ-2 Total Score 0 0 0 0 Trouble falling or staying asleep, or sleeping too much 0 0 0 - Feeling tired or having little energy 0 0 0 - Poor appetite or overeating 0 0 0 - Feeling bad about yourself - or that you are a failure or have let yourself or your family down 0 00 - Trouble concentrating on things, such as reading the newspaper or watching television 0 0 0 - Moving or speaking so slowly that other people could have noticed. Or the opposite - being so fidgety or restless that you have been moving around a lot more than usual 0 0 0 - Thoughts that you would be better off , or of hurting yourself in some way 0 0 0 - PHQ-9 Total Score 0 0 0 - If you checked off any problems, how difficult have these problems made it for you to do your work,take care of things at home, or get along with other people? - - Not difficult at all - documented in this [id number] History of Present illness Narrative* Bambi Huynh MD - 09/29/2020 1:58 PM EDT [facility] [address] [place], [place] [address] [place] 1960 [phone] HPI: 60-year-old female with history of hypothyroidism, chronic hip pain, hyperlipidemia. Currentlytaking levothyroxine. Compliant with medication and thyroid levels are normal. She is euthyroid clinically. Continues to be bothered by hip pain left more than right. Walking up an incline or climbing steps on the most uncomfortable. It limits her ability to exercise but she can work throughout the day without problems. Has previously consulted with orthopedics who thought that this was bursitis but she did not get relief from the steroid injection and physical therapy. She has not returned for reevaluation Current stressor is the fact that her mother is terminal in a nursing facility with renal failure Medications: Current Outpatient Medications Medication Sig Dispense Refill levothyroxine (SYNTHROID, LEVOTHROID) 125 MCG tablet Take 1 (one) tablet (125 mcg total) by mouth daily . 90 tablet 3 multivitamin (multivitamin) per tablet Take 1 tablet by mouth daily . omega-3 fatty acids-fish oil 340-1,000 mg cap Take 1 capsule by mouth daily . albuterol 90 mcg/actuation inhaler Inhale 2 (two) puffs every 6 (six) hours as needed for wheezing . (Patient not taking: Reported on 09/29/2020 .) 1 Inhaler 0 No current facility-administered medications for this visit. Allergies: Allergies Allergen Reactions Iodine And Iodide Containing Products GI Intolerance Seafood, Vomiting Problem List Items Addressed This Visit Endocrine Hypothyroidism - Primary Relevant Medications levothyroxine (SYNTHROID, LEVOTHROID) 125 MCG tablet Other Visit Diagnoses Hip pain Social History Socioeconomic History Marital status: Spouse name: Not on file Number of children: Not on file Years of education: Not on file Highest education level: Not on file Occupational History Not on file Social Needs Financial resource strain: Not hard at all Food insecurity Worry: Never true Inability: Never true Transportation needs Medical: Not on file Non-medical: Not on file Tobacco Use Smoking status: Current Some Day Smoker Packs/day: 0.50 Years: 20.00 Pack years: 10.00 Types: Cigarettes Start date: 05/05/1996 Smokeless tobacco: Never Used Substance and Sexual Activity Alcohol use: Yes Comment: Occassionally Drug use: No Sexual activity: Not Currently Partners: Male Lifestyle Physical activity Days per week: Not on file Minutes per session: Not on file Stress: Not on file Relationships Social connections Talks on phone: Not on file Gets together: Three times a week Attends [employer] service: Not on file Active member of club or organization: Not on file Attends meetings of clubs or organizations: Not on file Relationship status: Not on file Other Topics Concern Not on file Social History Narrative Not on file ROS: As above Vision and Hearing: Does wear glasses Physical Exam: Vitals: 09/29/20 1321 09/29/20 1332 BP: (!) 152/84 138/85 Pulse: 80 74 Temp: 97.3 F (36.3 C) TempSrc: Infrared SpO2: 95% 93% Weight: 89.1 kg (196 lb 8 oz) Height: 6' Patient is in no apparent distress with regular heart tones and clear lung sounds without wheezes or crackles. She has no peripheral edema. Extensive hip evaluation not done. Impression/Plan: Hypothyroidism. Euthyroid on levothyroxine with good TSH values. Hip pain. I have encouraged her to return to the orthopedic office for reevaluation. She will consider but wants to wait till after the passing of her mother. Family stress as anticipated. Anticipate her mother's in the near future based on her descriptions today. For any new medications prescribed today, patient was educated about indications for the medication, how to take the medication and potential side effects of the medications. Return in about 6 months (around 04/01/2021). Bambi Huynh MD Depression Screening 01/01/2018 01/14/2019 09/29/2020 Little interest or pleasure in doing things 0 0 0 Feeling down, depressed, or hopeless 0 0 0 PHQ-2 Total Score 0 0 0 Trouble falling or staying asleep, or sleeping too much 0 0 0 Feeling tired or having little energy 0 0 0 Poor appetite or overeating 0 0 0 Feeling bad about yourself - or that you are a failure or have let yourself or your family down 0 00 Trouble concentrating on things, such as reading the newspaper or watching television 0 0 0 Moving or speaking so slowly that other people could have noticed. Or the opposite - being so fidgety or restless that you have been moving around a lot more than usual 0 0 0 Thoughts that you would be better off , or of hurting yourself in some way 0 0 0 PHQ-9 Total Score 0 0 0 If you checked off any problems, how difficult have these problems made it for you to do your work,take care of things at home, or get along with other people? - - Not difficult at all documented in this [id number] Telephone encounter Note* Telephone Encounter - Bambi Huynh MD - 07/29/2020 6:59 AM EST Patient overdue for appointment [id number] Miscellaneous Notes* Telephone Encounter - Bambi Huynh MD - 07/29/2020 6:59 AM EST Patient overdue for appointment documented in this encounterOhioHealthDischarge summary Author Constantin Jain [facility] Note Date/Time September 15, 2024 7:5 1am [facility] Medical Records Department [address] [place] [address] Emergency Department Summary 09/15/24 MR#: [id number] Acct: [id number] Name: SCOTT OBREGON Rep #:[id number] 15 : 1960 64 From: Constantin Jain MD PCP: Millie Massey MD Status:REG ER Location: ED HPI History of Present Illness Chief Complaint: Shortness of Breath Narrative Narrative: Patient is sent from alf facility where she is DNR comfort care only, she is a dialysis patient and has a lot of medical problems including clotting disorders, peripheral arterial disease, ESRD, and a history of pulmonary edema that staff at the [facility] states has improved with Lasix inthe past, she has been dyspneic for the last 12 to 24 hours, and the patient complains of chest pressure as well. She has been coughing no sputum production, she is orthopneic and denies any fevers or chills. No GI symptoms or recent vomiting. She is on chronic oxygen therapy at the [facility], unknown how much at baseline but at the [facility] they have had her nasal cannula up to 5 L this past day. 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 Gross hematuria Retroperitoneal hematoma Constipation, unspecified Raynaud's syndrome without gangrene Hypo-osmolality and hyponatremia Hyperlipidemia, unspecified Hypothyroidism, unspecified Anemia, unspecified Need for assistance with personal care Other malaise Other abnormalities of gait and mobility Unsteadiness on feet Muscle weakness (generalized) Other symbolic dysfunctions Dysphagia, oropharyngeal phase Essential (primary) hypertension Activated protein C resistance Unspecified severe protein-calorie malnutrition Acute respiratory failure with hypoxia Emphysema, unspecified Peripheral vascular disease, unspecified Enterocolitis due to Clostridium difficile, not specified as recurrent Acute kidney failure, unspecified Leakage of aortic (bifurcation) graft (replacement), subsequent encounter Abdominal aortic aneurysm, ruptured, unspecified Home Medications ?Medication ?Instructions ?Recorded ?Last Taken ?Type aspirin 81 mg tablet,delayed 81 mg PO DAILY 03/11/24 0 07/23/24 History release (Adult Aspirin Regimen) atorvastatin 20 mg tablet 20 mg PO QHS 03/11/24 History metoprolol tartrate 25 mg tablet 25 mg PO BID 03/11/24 07/22/24 History thiamine HCl (vitamin B1) 100 mg 100 mg PO BID 4 07/23/24 History tablet cyclobenzaprine 5 mg tablet 5 mg PO Q8H PRN MUSCLE SPA SMS 06/05/24 07/10/24 History Lactobacillus rhamnosus GG 10 1 cap PO DAILY 07/18/24 07/23/24 History billion cell capsule (Culturelle) acetaminophen 325 mg tablet 650 mg PO Q4H PRN fever Unknown History aluminum-magnesium hydroxide 200 30 ml PO Q4H PRN GI D ISTRESS 07/18/24 Unknown History mg-200 mg/5 mL oral suspension amlodipine 5 mg tablet 5 mg PO QHS 07/18/24 5 History docusate sodium 100 mg tablet 100 mg PO BID PRN consti pation 07/18/24 Unknown History dronabinol 2.5 mg capsule (Marinol) 2.5 mg PO BID 06/3007/23/24 History guaifenesin 100 mg/5 mL oral liquid 400 mg PO TID PRN cough 07/18/24 07/14/24 History levothyroxine 200 mcg tablet 200 mcg PO DAILY 07/18/24 07/23/24 History midodrine 10 mg tablet 10 mg PO DAILY PRN for SBP l ower 07/18/24 Unknown History than 110 during dialysis tx ondansetron 4 mg disintegrating 4 mg PO DAILY PRN naus ea and 07/18/24 Unknown History tablet vomiting oxycodone 5 mg tablet 5 mg PO Q6H PRN pain 5 07/22/24 History polyethylene glycol 3350 17 17 g PO QODAY 07/18/24 History gram/dose oral powder sennosides 8.6 mg-docusate sodium 1 tab-cap PO DAILY P RN constipation 07/18/24 Unknown History 50 mg tablet (Senna Plus) sertraline 25 mg tablet 25 mg PO DAILY 07/18/2406/30 History vitamin B complex-vitamin C-folic 1 tab PO DAILY 07/1807/23/24 History acid 0.8 mg tablet (Renal Vitamin) bisacodyl 10 mg rectal suppository 10 mg MT DAILY PRN constipation 07/31/24 Unknown History cholecalciferol (vitamin D3) 125 125 mcg PO DAILY 10/20 Unknown History mcg (5,000 unit) capsule glucagon HCl 1 mg solution for 1 mg IM Q20M PRN hypogl ycemia 07/31/24 Unknown History injection (Glucagon (HCl) Emergency Kit) ascorbic acid (vitamin C) 500 mg 500 mg PO DAILY #0 ta bs 08/13/24 Unknown Rx tablet ferrous sulfate 325 mg (65 mg 325 mg PO QODAY #30 tabs 08/13/24 Unknown Rx iron) tablet acetaminophen 650 mg rectal 650 mg MT Q4H PRN fever or pain 08/14/24 Unknown History suppository dextrose 40 % oral gel (Glucose 10 g PO Q15M PRN hypog lycemia 08/14/24 Unknown History Gel) mirtazapine 15 mg tablet 15 mg PO QHS 08/14/24 Unknow n History sodium phosphates 19 gram-7 118 ml MT DAILY PRN consti pation 08/14/24 Unknown History gram/118 mL enema (Enema) IV with Additives 50 mls/hr GT 08/17/24 Unknow n Rx pantoprazole 40 mg tablet,delayed 40 mg PO DAILY #0 ta bs 08/17/24 Unknown Rx release cetirizine 10 mg tablet (24Hour 10 mg PO DAILY 5 Unknown History Allergy) furosemide 80 mg tablet 80 mg PO .once PRN edema or 09/15/24 Unknown Rx increased dyspnea #1 TAB potassium 20 mg chewable tablet 10 mg PO DAILY 5 Unknown History Allergy/AdvReac Type Severity Reaction Status Date / Time iodine Allergy Intermediate Nausea Verified 08/14/24 07:32 shellfish derived Allergy Intermediate Nausea Verified 08/14/24 07:32 Social History Smoking Status: Former smoker Tobacco: How many years used: 40 alcohol intake: former substance use type: does not use ROS ROS ED Constitutional Constitutional ED: Reports fatigue; Denies chills or fever(s) Eyes Eyes: Denies change in vision or diplopia ENT ENT ED: Denies rhinorrhea or sore throat Cardiovascular Cardiovascular: Reports chest pain and orthopnea; Denies palpitations Respiratory/Chest Respiratory/Chest: Reports cough, dyspnea and orthopnea; Denies sputum Gastrointestinal Gastrointestinal: Denies abdominal pain, diarrhea, nausea or vomiting Musculoskeletal Musculoskeletal: Denies back pain or neck pain Integumentary Denies abscess or rash Neurologic Neurologic: Denies headache(s), paresthesias or weakness Psychiatric Psychiatric: Denies suicidal thoughts EXAM Physical Exam Const Vital Signs: 09/15/24 04:23 09/15/24 04:35 09/15/24 04:35 Temperature 98.0 F Temperature Source Temporal Pulse Rate 110 H 103 H Respiratory Rate 17 22 H Blood Pressure 169/109 H Blood Pressure Mean 129 Pulse Ox 94 Oxygen Delivery Method Non-Rebreather Non-Rebreather Oxygen Flow Rate (L/min) 10 Fraction of Inspired Oxygen (FIO2) 10 09/15/24 05:23 09/15/24 05:29 09/15/24 06:00 Temperature 98.0 F 98.3 F Temperature Source Temporal Temporal Pulse Rate 98 96 98 Respiratory Rate 24 H 22 H 20 H Blood Pressure 140/75 H 136/75 H 140/78 H Blood Pressure Mean 96 95 98 Pulse Ox 100 100 97 Oxygen Delivery Method Non-Rebreather Non-Rebreather Nasal Cannula Oxygen Flow Rate (L/min) 10 5 Fraction of Inspired Oxygen (FIO2) 09/15/24 06:00 09/15/24 07:00 09/15/24 07:00 Temperature 98.6 F Temperature Source Temporal Pulse Rate 100 100 Respiratory Rate 20 H Blood Pressure 140/76 H 145/85 H Blood Pressure Mean 97 105 Pulse Ox 96 Oxygen Delivery Method Nasal Cannula Oxygen Flow Rate (L/min) 4 Fraction of Inspired Oxygen (FIO2) Positive well nourished, well developed and cachectic General Appearance ED: well developed, cachectic and NAD Nutritional Appearance: cachectic HEENT Reports moist mucous membranes normocephalic and atraumatic Eyes PERRL and EOMs intact bilaterally Neck full ROM and supple Chest Wall Chest Narrative: Dialysis tunneled catheter right upper chest site benign and nontender Resp Resp Narrative: Tachypnea, severely diminished breath sounds throughout, but symmetrically. Some transmitted upper airway sounds but I hear no crackles, rales, or significant wheezing. Cardio regular rate, regular rhythm and no murmurs Rate: tachycardic GI non-tender and non-distended Auscultation: normoactive bowel sounds Palpation: soft Back/Spine no CVA tenderness General Back: other FROM Extremity normal to inspection General Extremety ED: Yes edema; Negative for pulses abnormal or tenderness General Extremity: edema bilateral lower extremity Details: mild; Negative for pulses abnormal Neuro oriented x3, CN's II-XII intact bilaterally and no sensory deficits noted Sensorium / Orientation: awake and alert Motor Exam: general weakness Psych mental status grossly normal Skin no rashes or lesions noted and no wounds MDM MDM MDM Narrative Medical decision making narrative: Patient was given an albuterol treatment, she had 1 earlier at the [place] [facility] and she said it helped a little. In the meantime EKG shows no acute injury pattern, 1 view chest x-ray on my interpretation shows pulmonary edema and probable bilateral small effusions. She was also given Lasix 80 mg, she does not have Lasix on her medication list that she takes daily. As result she did urinate into her diaper, and on reevaluation she feels much better and is breathing normally except for when she coughs. Chest discomfort is resolved. Her initial troponin is elevated probably indicative of her chronic kidney disease and cardiac strain, at least this is consistent with her pulmonary edema. Given her DNRCC status I do not think she needs to be admitted because of the chest pain and abnormal troponin, but I would like to get her dialyzed soon to help with the pulmonary edema. Unfortunately it is Monday morning and we do not have appropriate staff today in order to have hemodialysis performed at this hospital. Monitored the patient for a while and we were able to titrateher oxygen down to a 5 L nasal cannula in the mid 90s and no distress. Blood pressure 144 systolic. Patient is doing well. I discussed with nephrology Dr. Barrios, who agrees it would be reasonable to send her back to the [place] [facility], andshallan will be dialyzed on first shift Monday. I will have staff contact nurses at the [place] [facility] and discuss her oxygen status, the possibility of a prescription for either an IV or an oral dose of Lasix if she should need it later, and reasons to send her back to the ER or preferably a hospital that has dialysis capability on Monday if she should need to go to the ER before Monday. History & Record Review Discussion w/independent historian: Patient Additional record(s) reviewed:: Prior outpatient record (echo 08/20 EF 40%) Lab Data Attestation: I reviewed the patient's lab results. Labs: Laboratory Results - last 24 hr 09/15/24 04:45 WBC 9.3 RBC 3.02 L Hgb 8.3 L Hct 27.5 L MCV 91.1 MCH 27.5 MCHC 30.2 L RDW Std Deviation 62.7 H RDW Coeff of Monika 19.0 H Plt Count 198 MPV 10.0 Immature Gran % (Auto) 1.100 H Neut % (Auto) 84.1 H Lymph % (Auto) 6.9 L Erath % (Auto) 6.1 Eos % (Auto) 1.5 Baso % (Auto) 0.3 Absolute Neuts (auto) 7.8 H Absolute Lymphs (auto) 0.64 L Nucleated RBC % 0 Sodium 133 Potassium 4.3 Chloride 96 L Carbon Dioxide 27.3 Anion Gap 10 BUN 40 H Creatinine 1.14 Estim Creat Clear Calc 44.59 L Est GFR (MDRD) Non-Af 54 L BUN/Creatinine Ratio 34.6 H Glucose 103 H Calcium 9.1 Troponin T High Sens 256 H* D Radiography Diagnostic Testing: Clinical Impression(s) from Imaging Studies Chest X-Ray 09/15/24 04:50 IMPRESSION: Interval development of significant diffuse pulmonary vascular congestion with [id number] bilateral pleural effusions. Underlying pneumonia to be ruled out. Follow-up until resolution is recommended. Reading Location: [facility] Rhythm Strip Rhythm Strip: Sinus Tach Rate: 110 Ectopy: None EKG Initial EKG: Attestation: I personally reviewed and interpreted this EKG as follows: Interpretation: No Acute Injury Pattern, Sinus Tachycardia and Non-Specific ST Changes Management Discussion w/another healthcare provider: Scientific Photographer (nephrology Dr. Barrios) Discharge Plan Triage Chief Complaint: Shortness of Breath ED Provider: Constantin Jain Dx/Rx/DC Orders Clinical Impression: Pulmonary edema, ESRD on hemodialysis, Chest pain Prescriptions: New furosemide 80 mg tablet 80 mg PO .once PRN (Reason: edema or increased dyspnea) Qty: 1 0RF No Action cyclobenzaprine 5 mg tablet 5 mg PO Q8H PRN (Reason: MUSCLE SPASMS) acetaminophen 325 mg tablet 650 mg PO Q4H PRN (Reason: fever) guaifenesin 100 mg/5 mL liquid 400 mg PO TID PRN (Reason: cough) dronabinol [Marinol] 2.5 mg capsule 2.5 mg PO BID Rx Instructions: administer before lunch and evening meal/dinner sertraline 25 mg tablet 25 mg PO DAILY Renal Vitamin 0.8 mg tablet 1 tab PO DAILY polyethylene glycol 3350 17 gram/dose powder 17 g PO QODAY Rx Instructions: EVERY OTHER DAY AT BED TIME ondansetron 4 mg tablet,disintegrating 4 mg PO DAILY PRN (Reason: nausea and vomiting) docusate sodium 100 mg tablet 100 mg PO BID PRN (Reason: constipation) midodrine 10 mg tablet 10 mg PO DAILY PRN (Reason: for SBP lower than 110 during dialysis tx) Rx Instructions: for SBP lower than 110 during dialysis tx acetaminophen 650 mg suppository 650 mg MT Q4H PRN (Reason: fever or pain) Enema 19-7 gram/118 mL enema 118 ml MT DAILY PRN (Reason: constipation) Rx Instructions: NEEDED FOR CONSTIPATION FOR 2 EPISODES IF DULCOLAX SUPP INEFFECTIVE. CALL PHYSICIAN IF NO BM X4 DAYS dextrose [Glucose Gel] 40 % gel 10 g PO Q15M PRN (Reason: hypoglycemia) Rx Instructions: until symptoms of low blood sugar are controlled mirtazapine 15 mg tablet 15 mg PO QHS pantoprazole 40 mg Tablet,Delayed Release (Dr/Ec) 40 mg PO DAILY Qty: 0 0RF IV with Additives Jevity 1.5 1000 ML 50 mls/hr GT Hold for bowel cramps for 1-2 hour Ordered By: Nikolas Magaña MD Last Taken: Unknown potassium 20 mg tablet,chewable 10 mg PO DAILY Patient Comments: until 09/20 cetirizine [24Hour Allergy] 10 mg tablet 10 mg PO DAILY Patient Comments: until 09/20 aspirin [Adult Aspirin Regimen] 81 mg tablet,delayed release (DR/EC) 81 mg PO DAILY Patient Comments: HOLD UNTIL 08/20/24 atorvastatin 20 mg tablet 20 mg PO QHS metoprolol tartrate 25 mg tablet 25 mg PO BID oxycodone 5 mg tablet 5 mg PO Q6H PRN (Reason: pain) thiamine HCl (vitamin B1) 100 mg tablet 100 mg PO BID amlodipine 5 mg tablet 5 mg PO QHS levothyroxine 200 mcg tablet 200 mcg PO DAILY sennosides-docusate sodium [Senna Plus] 8.6-50 mg tablet 1 tab-cap PO DAILY PRN (Reason: constipation) Culturelle 10 billion cell capsule 1 cap PO DAILY aluminum-magnesium hydroxide 200-200 mg/5 mL suspension 30 ml PO Q4H PRN (Reason: GI DISTRESS) bisacodyl 10 mg suppository 10 mg MT DAILY PRN (Reason: constipation) glucagon HCl [Glucagon (HCl) Emergency Kit] 1 mg recon soln 1 mg IM Q20M PRN (Reason: hypoglycemia) Rx Instructions: until target blood sugar attained cholecalciferol (vitamin D3) 125 mcg (5,000 unit) capsule 125 mcg PO DAILY ascorbic acid (vitamin C) 500 mg Tablet 500 mg PO DAILY Qty: 0 0RF ferrous sulfate 325 mg (65 mg iron) tablet 325 mg PO QODAY Qty: 30 2RF Primary Care Provider: Millie Massey Referrals: Millie Massey MD [Primary Care Provider] - Oswaldo Leon MD [Med Staff - Consulting] - Activity Restrictions/Additional Instructions: Received Lasix 80 mg in the ED, urinated several times, feeling much better, on a nasal cannula, resolution of chest discomfort. Pulmonary edema on x-ray, needs dialysis, but Lasix should temporize until Monday morning. Another dose prescribed in case she needs it later. Be aware that we do not have the capability of dialyzing patients at [facility] until Monday after 7 AM 09/16/2024. Print Language: Guamanian Disposition Disposition: Home, Self Care What to do if you have Problems For any increased pain, shortness of breath, bleeding, nausea or vomiting, chestpain, or any unexpected problems, contact your Primary Care Provider. Call [facility] ([phone]) or report to the closest Emergency Room. Call 911 if necessary. 09/15/24 0751 <Electronically signed by Constantin Jain MD> Cosigner Signature (if applicable): CC: Millie Massey MD ~ Signed [facility] Work Phone: Evaluation note* Diagnosis Hypothyroidism, unspecified type- [facility] Diagnosis Hypothyroidism, unspecified type- Primary Hip pain Pain in joint, pelvic region and thigh [facility] Diagnosis Hypothyroidism, unspecified type- Primary Hyperlipidemia, unspecified hyperlipidemia type [facility] Diagnosis Ganglion cyst of left foot- Primary Plantar fascial fibromatosis of left foot Plantar keratosis, acquired [facility]* Diagnosis Acute non-recurrent maxillary sinusitis- Primary [facility] Diagnosis Hypothyroidism, unspecified type [facility]* Diagnosis Routine general medical examination at a health care facility- Primary Post-menopause Asymptomatic postmenopausal status (age-related) (natural) Encounter for screening mammogram for malignant neoplasm of breast Colon cancer screening Special screening for malignant neoplasms, colon Hypothyroidism, unspecified type [facility] Diagnosis Idiopathic peripheral neuropathy- Primary Unspecified hereditary and idiopathic peripheral neuropathy [facility] Diagnosis Toe infection- Primary [facility]* Diagnosis Acute non-recurrent maxillary sinusitis- Primary [facility]* Diagnosis Raynaud's phenomenon without gangrene- Primary Hypothyroidism, unspecified type [facility]* Diagnosis Acute deep vein thrombosis (DVT) of axillary vein of left upper extremity (HCC)- Primary Acute deep vein thrombosis (DVT) of axillary vein of left upper extremity (HCC) Chest pain, unspecified type [facility] Diagnosis Acute deep vein thrombosis (DVT) of axillary vein of left upper extremity (HCC)- Primary [facility] Diagnosis Current smoker- Primary Acute deep vein thrombosis (DVT) of axillary vein of left upper extremity (HCC) Cigarette smoker Tobacco use disorder Screening for malignant neoplasm of respiratory organ Special screening for malignant neoplasm of the respiratory organs [facility] Diagnosis Acute deep vein thrombosis (DVT) of axillary vein of left upper extremity (HCC)- Primary [facility] Diagnosis Acute deep vein thrombosis (DVT) of axillary vein of left upper extremity (HCC) [facility] Diagnosis History of deep venous thrombosis- Primary Current smoker Transaminitis Nonspecific elevation of levels of transaminase or lactic acid dehydrogenase (LDH) Factor V Leiden mutation (HCC) Primary hypercoagulable state Lymphadenopathy Enlargement of lymph nodes Decreased muscle strength Muscle weakness (generalized) Lung nodule seen on imaging study [facility] Acute deep vein thrombosis (DVT) of axillary vein of left upper extremity (HCC) [facility] Diagnosis Hypothyroidism, unspecified type [facility] Diagnosis History of deep venous thrombosis- Primary Axillary lymphadenopathy Enlargement of lymph nodes Factor V Leiden mutation (HCC) Primary hypercoagulable state [facility] Diagnosis Acute non-recurrent maxillary sinusitis- Primary Familial hypercholesteremia Pure hypercholesterolemia [facility] Diagnosis Acute non-recurrent maxillary sinusitis- Primary Familial hypercholesteremia Pure hypercholesterolemia [facility] Diagnosis Hyperlipidemia, unspecified hyperlipidemia type [E78.5]- Primary [facility] Diagnosis History of deep venous thrombosis- Primary [facility] Diagnosis History of deep venous thrombosis- Primary Reactive lymphadenopathy Factor V Leiden mutation (HCC) Primary hypercoagulable state [facility] Diagnosis Acute deep vein thrombosis (DVT) of axillary vein of left upper extremity (HCC)- Primary [facility] Diagnosis Acute deep vein thrombosis (DVT) of axillary vein of left upper extremity (HCC)- Primary [facility] Diagnosis Acute deep vein thrombosis (DVT) of axillary vein of left upper extremity (HCC)- Primary [facility] Diagnosis Hypothyroidism, unspecified type- Primary Familial hypercholesteremia Pure hypercholesterolemia Encounter for screening mammogram for malignant neoplasm [facility] Hypothyroidism, unspecified type- Primary [facility] Diagnosis Acute deep vein thrombosis (DVT) of axillary vein of left upper extremity (HCC)- Primary [facility] Diagnosis History of deep venous thrombosis [facility] Diagnosis Acute deep vein thrombosis (DVT) of axillary vein of left upper extremity (HCC)- Primary [facility] Diagnosis Right-sided low back pain with right-sided sciatica, unspecified chronicity- Primary Idiopathic peripheral neuropathy Unspecified hereditary and idiopathic peripheral neuropathy Right-sided low back pain with right-sided sciatica, unspecified chronicity [facility] Diagnosis Acute deep vein thrombosis (DVT) of axillary vein of left upper extremity (HCC)- Primary [facility] Diagnosis Lumbosacral radiculopathy- Primary Thoracic or lumbosacral neuritis or radiculitis, unspecified [facility]* Diagnosis Acute deep vein thrombosis (DVT) of axillary vein of left upper extremity (HCC)- Primary [facility] Diagnosis Weakness of right lower extremity- Primary Lumbosacral radiculopathy Thoracic or lumbosacral neuritis or radiculitis, unspecified Paresthesias Disturbance of skin sensation [facility]* Diagnosis Acute deep vein thrombosis (DVT) of axillary vein of left upper extremity (HCC)- Primary [facility] Diagnosis Acute right-sided low back pain without sciatica- Primary [facility]* Diagnosis Hypothyroidism, unspecified type [facility]* Diagnosis Ruptured abdominal aortic aneurysm (AAA), unspecified part (HCC)- Primary [facility] Diagnosis 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)- Primary [facility]* Diagnosis Hypertension, unspecified type- Primary Orthostatic hypotension TUTU (acute kidney injury) ([facility]) Debility Unspecified debility Ruptured abdominal aortic aneurysm (AAA), unspecified part (HCC) Aftercare following surgery of the circulatory system Aftercare following surgery of the circulatory system, NEC [facility]* Diagnosis Acute deep vein thrombosis (DVT) of axillary vein of left upper extremity (HCC)- Primary [facility] Diagnosis Acute deep vein thrombosis (DVT) of axillary vein of left upper extremity (HCC)- Primary [facility] Diagnosis 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)- Primary PVD (peripheral vascular disease) ([facility]) Unspecified peripheral vascular disease [facility]* Diagnosis Acute deep vein thrombosis (DVT) of axillary vein of left upper extremity (HCC)- Primary PVD (peripheral vascular disease) (HCC)- Primary Unspecified peripheral vascular disease [facility] Diagnosis Ischemia of toe- Primary PVD (peripheral vascular disease) (HCC) Unspecified peripheral vascular disease [facility]* Diagnosis Orthostatic hypotension- Primary General weakness Other malaise and fatigue [facility] Diagnosis Orthostatic hypotension- Primary General weakness Other malaise and fatigue [facility]* Diagnosis Acute deep vein thrombosis (DVT) of axillary vein of left upper extremity (HCC)- Primary [facility] Diagnosis Acute deep vein thrombosis (DVT) of axillary vein of left upper extremity (HCC)- Primary Allergy to radiographic dye- Primary [facility] Diagnosis Acute deep vein thrombosis (DVT) of axillary vein of left upper extremity (HCC)- Primary [facility] Diagnosis Acute deep vein thrombosis (DVT) of axillary vein of left upper extremity (HCC)- [facility] Acute deep vein thrombosis (DVT) of axillary vein of left upper extremity (HCC)- Primary Acute deep vein thrombosis (DVT) of axillary vein of left upper extremity (HCC)- Primary [facility] Diagnosis Acute deep vein thrombosis (DVT) of axillary vein of left upper extremity (HCC)- Primary [facility] Diagnosis PVD (peripheral vascular disease) (HCC)- Primary Unspecified peripheral vascular disease 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) Renal insufficiency Unspecified disorder of kidney and ureter [facility] Diagnosis Acute deep vein thrombosis (DVT) of axillary vein of left upper extremity (HCC)- Primary [facility] Diagnosis 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)- Primary Postoperative leak [facility] Diagnosis 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)- Primary Elevated serum creatinine Other nonspecific findings on examination of blood [facility] Diagnosis 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)- Primary [facility] Diagnosis [facility], unspecified type [facility] Ruptured abdominal aortic aneurysm (AAA) (HCC)- Primary Ruptured infrarenal abdominal aortic aneurysm (AAA) (HCC) Hypotension, unspecified hypotension type 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)- Primary PVD (peripheral vascular disease) (HCC) Unspecified peripheral vascular disease PVD (peripheral vascular disease) (HCC)- Primary Unspecified peripheral vascular disease 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) Renal insufficiency Unspecified disorder of kidney and ureter 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)- Primary Leakage of unspecified vascular graft, sequela- Primary Juxtarenal abdominal aortic aneurysm, ruptured (HCC) Leakage of unspecified vascular graft, sequela Familial hypercholesteremia Pure hypercholesterolemia Acute deep vein thrombosis (DVT) of axillary vein of left upper extremity (HCC) Bilateral hip pain Pain in joint, pelvic region and thigh Clostridium difficile colitis Intestinal infection due to clostridium difficile 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)- Primary [facility] Diagnosis Ruptured abdominal aortic aneurysm (AAA) (HCC)- Primary Ruptured infrarenal abdominal aortic aneurysm (AAA) (HCC) Hypotension, unspecified hypotension type 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)- Primary PVD (peripheral vascular disease) (HCC) Unspecified peripheral vascular disease PVD (peripheral vascular disease) (HCC)- Primary Unspecified peripheral vascular disease 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) Renal insufficiency Unspecified disorder of kidney and ureter 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)- Primary Leakage of unspecified vascular graft, sequela- Primary Juxtarenal abdominal aortic aneurysm, ruptured (HCC) Leakage of unspecified vascular graft, sequela Familial hypercholesteremia Pure hypercholesterolemia Acute deep vein thrombosis (DVT) of axillary vein of left upper extremity (HCC) Bilateral hip pain Pain in joint, pelvic region and thigh Clostridium difficile colitis Intestinal infection due to clostridium difficile Abdominal aortic aneurysm (AAA) without rupture, unspecified part (HCC)- [facility] Additional Instructions Received Lasix 80 mg in the ED, urinated several times, feeling much better, on a nasal cannula, resolution of chest discomfort. Pulmonary edema on x-ray, needs dialysis, but Lasix should temporize until Monday morning. Another dose prescribed in case she needs it later. Be aware that we do not have the capability of dialyzing patients at [facility] until Monday after 7 AM 09/16/2024.[facility] Work Phone: Instructions* Attachments The following attachments cannot be sent through Care Everywhere. * Smoking Cessation: Health Benefits: General Info (Guamanian) [facility] Attachments The following attachments cannot be sent through Care Everywhere. * DVT (Deep Vein Thrombosis) (Guamanian) * Lung Cancer Screening: General Info (Guamanian) [facility]* Attachments The following attachments cannot be sent through Care Everywhere. * PET Scan (Guamanian) * MRI: Head (Guamanian) [facility]* Attachments The following attachments cannot be sent through Care Everywhere. * Factor V Leiden (Guamanian) * Warfarin Safety Tips (Guamanian) * Coumadin (Warfarin) - Consistent Vitamin K Diet: Care Instructions (Guamanian) * Warfarin: 5 Things You Can Do to Take It Safely: Video (Guamanian) * Direct Oral Anticoagulants: Non-Vitamin K Antagonist (Guamanian) [facility]* Visit Details Visit Type -SN Non-OASIS SOC Discipline -Penitentiary Problems Problem Start Date Status Goals Interventions Assess and Instruct Home Visit Disciplines: Penitentiary 11/06/2023 Active 1 goal linked to scheduled/documented intervention 4 goal interventions scheduled/documented in this visit Medication Management Disciplines: Penitentiary 11/06/2023 Active 1 goal linked to scheduled/documented intervention 1 goal intervention scheduled/documented in this visit Pain Management Disciplines: Penitentiary 11/06/2023 Active 1 goal linked to scheduled/documented intervention 1 goal intervention scheduled/documented in this visit Goals Goal Associated Problem Outcome Goal Met? Visit Notes Home Care Plan Assess and Instruct Home Visit No Medications Medication Management No Pain Pain Management No Interventions Intervention Associated Problem/Goal Status Variance Visit Notes Falls Problem:Assess and Instruct Home Visit Goal:Home Care Plan Completed Clinician taught: patient and caregiver 1-3 Patient is NOT at risk for falls and clinician instructed: proper footwear, remove clutter and throw rugs, non-slip mats in tubs/showers, handrails/grab bar placement, assistive device usage, keep frequently used items in reach and emergency response system and/or keep phone on you. Patient/caregiver was able to demonstrate 100% via teachback Safety Problem:Assess and Instruct Home Visit Goal:Home Care Plan Completed Assessed patient vulnerability and home safety risks: low risk Equipment reviewed wheeled walker, grab bars to be installed. Patient at risk for harm or abuse no Family members involved in safety plan for Level 2 or 3 NA Discharge Planning Problem:Assess and Instruct Home Visit Goal:Home Care Plan Completed Home Visit DC Planning: Spoke with patient and caregiver about DC planning. Assessed for limited ambulation related to weakness, unsteady gait/poor balance, unstable BP and poor endurance related to recent surgery for AAA. DC will occur when: patient/caregiver is able to demonstrate pt verbalizes understanding of discharge goals and plans Anticipate DC: On time Patient and/or caregiver response to discharge planning education: understanding Plan for Next Visit Problem:Assess and Instruct Home Visit Goal:Home Care Plan Completed Follow up education for next visit: Patient on Warfarin therapy will have an understanding of bleeding precautions , dietary intake with warfarin therapy and knowledge and understanding of anticoagulation therapy.. And be free of any Active bleeding . Skilled intervention at next visit: assess blood pressure, ambulation safety, coumadin therapy Instruct Medication Management Problem:Medication Management Goal:Medications Completed Home Visit Med Education: Medication list reconciled. Medication profile and in-home medication list updated with appropriate changes. Discrepanices noted during home visit: yes, including parameter on blood pressue meds Instructed patient on dosing, purpose, and side effects. Medication education completed today on bp medication(s). Patient/caregiver is able to teach back 100% of instruction. Assess Pain Characteristics and Current Pain Regimen and Instruct Methods of Pain Relief Problem:Pain Management Goal:Pain Completed [facility] Visit Details Visit Type -SN Non-OASIS SOC Discipline -Penitentiary Problems Problem Start Date Status Goals Interventions Assess and Instruct Home Visit Disciplines: Penitentiary 11/06/2023 Active 1 goal linked to scheduled/documented intervention 4 goal interventions scheduled/documented in this visit Medication Management Disciplines: Penitentiary 11/06/2023 Active 1 goal linked to scheduled/documented intervention 1 goal intervention scheduled/documented in this visit Pain Management Disciplines: Penitentiary 11/06/2023 Active 1 goal linked to scheduled/documented intervention 1 goal intervention scheduled/documented in this visit Goals Goal Associated Problem Outcome Goal Met? Visit Notes Home Care Plan Assess and Instruct Home Visit No Medications Medication Management No Pain Pain Management No Interventions Intervention Associated Problem/Goal Status Variance Visit Notes Falls Problem:Assess and Instruct Home Visit Goal:Home Care Plan Completed Clinician taught: patient and caregiver 1-3 Patient is NOT at risk for falls and clinician instructed: proper footwear, remove clutter and throw rugs, non-slip mats in tubs/showers, handrails/grab bar placement, assistive device usage, keep frequently used items in reach and emergency response system and/or keep phone on you. Patient/caregiver was able to demonstrate 100% via teachback Safety Problem:Assess and Instruct Home Visit Goal:Home Care Plan Completed Assessed patient vulnerability and home safety risks: low risk Equipment reviewed wheeled walker, grab bars to be installed. Patient at risk for harm or abuse no Family members involved in safety plan for Level 2 or 3 NA Discharge Planning Problem:Assess and Instruct Home Visit Goal:Home Care Plan Completed Home Visit DC Planning: Spoke with patient and caregiver about DC planning. Assessed for limited ambulation related to weakness, unsteady gait/poor balance, unstable BP and poor endurance related to recent surgery for AAA. DC will occur when: patient/caregiver is able to demonstrate pt verbalizes understanding of discharge goals and plans Anticipate DC: On time Patient and/or caregiver response to discharge planning education: understanding Plan for Next Visit Problem:Assess and Instruct Home Visit Goal:Home Care Plan Completed Follow up education for next visit: Patient on Warfarin therapy will have an understanding of bleeding precautions , dietary intake with warfarin therapy and knowledge and understanding of anticoagulation therapy.. And be free of any Active bleeding . Skilled intervention at next visit: assess blood pressure, ambulation safety, coumadin therapy Instruct Medication Management Problem:Medication Management Goal:Medications Completed Home Visit Med Education: Medication list reconciled. Medication profile and in-home medication list updated with appropriate changes. Discrepanices noted during home visit: yes, including parameter on blood pressue meds Instructed patient on dosing, purpose, and side effects. Medication education completed today on bp medication(s). Patient/caregiver is able to teach back 100% of instruction. Assess Pain Characteristics and Current Pain Regimen and Instruct Methods of Pain Relief Problem:Pain Management Goal:Pain Completed 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 Routine Discipline -Penitentiary Problems Problem Start Date Status Goals Interventions Assess and Instruct Home Visit Disciplines: Penitentiary 11/06/2023 Active 1 goal linked to scheduled/documented intervention 4 goal interventions scheduled/documented in this visit Medication Management Disciplines: Penitentiary 11/06/2023 Active 1 goal linked to scheduled/documented intervention 1 goal intervention scheduled/documented in this visit Pain Management Disciplines: Penitentiary 11/06/2023 Active 1 goal linked to scheduled/documented intervention 1 goal intervention scheduled/documented in this visit Lab/INR Disciplines: Penitentiary 11/07/2023 Active 1 goal linked to scheduled/documented intervention 1 goal intervention scheduled/documented in this visit Goals Goal Associated Problem Outcome Goal Met? Visit Notes Home Care Plan Assess and Instruct Home Visit No Medications Medication Management No Pain Pain Management No Anticoagulation Therapy Lab/INR No Interventions Intervention Associated Problem/Goal Status Variance Visit Notes Falls Problem:Assess and Instruct Home Visit Goal:Home Care Plan Completed Denies falls. Uses walker while ambulating. Only ambulates on stairs if somone is present. Safety Problem:Assess and Instruct Home Visit Goal:Home Care Plan Completed Assessed patient vulnerability and home safety risks: Lives in split level home Equipment reviewed walker within reach Patient at risk for harm or abuse A&O x4 Family members involved in safety plan Discharge Planning Problem:Assess and Instruct Home Visit Goal:Home Care Plan Completed Home Visit DC Planning: Spoke with patient about DC planning. Assessed for unsteady gait/poor balance DC will occur when: patient/caregiver is able to demonstrate increased mobility with no falls or infection Anticipate DC: On time Patient and/or caregiver response to discharge planning education: verbalized understanding Plan for Next Visit Problem:Assess and Instruct Home Visit Goal:Home Care Plan Completed Follow up education for next visit: bleed precautions Skilled intervention at next visit: CP assess, INR check Instruct Medication Management Problem:Medication Management Goal:Medications Completed Home Visit Med Education: Medication list reconciled. Medication profile and in-home medication list updated with appropriate changes. Discrepanices noted during home visit: none Instructed patient on dosing, purpose, and side effects. Medication education completed today on coumadin medication(s). Patient/caregiver is able to teach back 90% of instruction. Assess Pain Characteristics and Current Pain Regimen and Instruct Methods of Pain Relief Problem:Pain Management Goal:Pain Completed Anticoagulation Therapy Problem:Lab/INR Goal:Anticoagulation Therapy Fingerstick to right 2nd finger with result of 2.3. Results called into [facility] and spoke with Pharm. Cisneros. No new orders for coumadin, patient is to continue same dose. Next scheduled INR Monday11/14/2023 [facility] Visit Details Visit Type -COLEMAN Routine Vis it Discipline -Occupational Therapy Problems Problem Start Date Status Goals Interventions Assess and Instruct Home Visit Disciplines: Occupational Therapy 11/08/2023 Active 1 goal linked to scheduled/documented intervention 3 goal interventions scheduled/documented in this visit Home Exercise Program Disciplines: Occupational Therapy 11/08/2023 Active 1 goal linked to scheduled/documented intervention 1 goal intervention scheduled/documented in this visit Goals Goal Associated Problem Outcome Goal Met? Visit Notes Home Care Plan Assess and Instruct Home Visit No Home Exercise Program Home Exercise Program No Interventions Intervention Associated Problem/Goal Status Variance Visit Notes Falls Problem:Assess and Instruct Home Visit Goal:Home Care Plan Completed Patient denies any new or recent falls when asked this date. Safety Problem:Assess and Instruct Home Visit Goal:Home Care Plan Completed Assessed patient vulnerability and home safety risks: yes Equipment reviewed FWW Patient at risk for harm or abuse no Family members involved in safety plan for Level 2 or 3 yes Plan for Next Visit Problem:Assess and Instruct Home Visit Goal:Home Care Plan Completed Follow up education for next visit: HEP Skilled intervention at next visit: IADL Home Exercise Program Problem:Home Exercise Program Goal:Home Exercise Program Completed Patient reports: feeling like she is getting a little stronger Clinician taught: patient Clinician instructed on: Facilitated patient in safe completion of supine HEP including 1 set x 10 reps BUE shoulder flexion, shoulder internal/external rotation, shoulder lateral raises, elbow flexion/extension, wrist flexion/extension, finger flexion/extension. Provided patient with visual and verbal cues for proper technique and sequencing of exercises. Patient completed therapeutic exercises for increased strength and endurance for increased ease and participation with ADL/IADL tasks and transfers. Patient/caregiver is able to teach back 75% of instruction. [facility] Visit Details Visit Type -SN Non-OASIS SOC Discipline -Penitentiary Problems Problem Start Date Status Goals Interventions Assess and Instruct Home Visit Disciplines: Penitentiary 11/06/2023 Active 1 goal linked to scheduled/documented intervention 4 goal interventions scheduled/documented in this visit Medication Management Disciplines: Penitentiary 11/06/2023 Active 1 goal linked to scheduled/documented intervention 1 goal intervention scheduled/documented in this visit Pain Management Disciplines: Penitentiary 11/06/2023 Active 1 goal linked to scheduled/documented intervention 1 goal intervention scheduled/documented in this visit Goals Goal Associated Problem Outcome Goal Met? Visit Notes Home Care Plan Assess and Instruct Home Visit No Medications Medication Management No Pain Pain Management No Interventions Intervention Associated Problem/Goal Status Variance Visit Notes Falls Problem:Assess and Instruct Home Visit Goal:Home Care Plan Completed Clinician taught: patient and caregiver 1-3 Patient is NOT at risk for falls and clinician instructed: proper footwear, remove clutter and throw rugs, non-slip mats in tubs/showers, handrails/grab bar placement, assistive device usage, keep frequently used items in reach and emergency response system and/or keep phone on you. Patient/caregiver was able to demonstrate 100% via teachback Safety Problem:Assess and Instruct Home Visit Goal:Home Care Plan Completed Assessed patient vulnerability and home safety risks: low risk Equipment reviewed wheeled walker, grab bars to be installed. Patient at risk for harm or abuse no Family members involved in safety plan for Level 2 or 3 NA Discharge Planning Problem:Assess and Instruct Home Visit Goal:Home Care Plan Completed Home Visit DC Planning: Spoke with patient and caregiver about DC planning. Assessed for limited ambulation related to weakness, unsteady gait/poor balance, unstable BP and poor endurance related to recent surgery for AAA. DC will occur when: patient/caregiver is able to demonstrate pt verbalizes understanding of discharge goals and plans Anticipate DC: On time Patient and/or caregiver response to discharge planning education: understanding Plan for Next Visit Problem:Assess and Instruct Home Visit Goal:Home Care Plan Completed Follow up education for next visit: Patient on Warfarin therapy will have an understanding of bleeding precautions , dietary intake with warfarin therapy and knowledge and understanding of anticoagulation therapy.. And be free of any Active bleeding . Skilled intervention at next visit: assess blood pressure, ambulation safety, coumadin therapy Instruct Medication Management Problem:Medication Management Goal:Medications Completed Home Visit Med Education: Medication list reconciled. Medication profile and in-home medication list updated with appropriate changes. Discrepanices noted during home visit: yes, including parameter on blood pressue meds Instructed patient on dosing, purpose, and side effects. Medication education completed today on bp medication(s). Patient/caregiver is able to teach back 100% of instruction. Assess Pain Characteristics and Current Pain Regimen and Instruct Methods of Pain Relief Problem:Pain Management Goal:Pain Completed 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 Routine Discipline -Penitentiary Problems Problem Start Date Status Goals Interventions Assess and Instruct Home Visit Disciplines: Penitentiary 11/06/2023 Active 1 goal linked to scheduled/documented intervention 4 goal interventions scheduled/documented in this visit Medication Management Disciplines: Penitentiary 11/06/2023 Active 1 goal linked to scheduled/documented intervention 1 goal intervention scheduled/documented in this visit Pain Management Disciplines: Penitentiary 11/06/2023 Active 1 goal linked to scheduled/documented intervention 1 goal intervention scheduled/documented in this visit Goals Goal Associated Problem Outcome Goal Met? Visit Notes Home Care Plan Assess and Instruct Home Visit No Medications Medication Management No Pain Pain Management No Interventions Intervention Associated Problem/Goal Status Variance Visit Notes Falls Problem:Assess and Instruct Home Visit Goal:Home Care Plan Completed No Falls reported. Safety Problem:Assess and Instruct Home Visit Goal:Home Care Plan Completed Low safety risk. Discharge Planning Problem:Assess and Instruct Home Visit Goal:Home Care Plan Completed Patient not being discharged at this time. Plan for Next Visit Problem:Assess and Instruct Home Visit Goal:Home Care Plan Completed Monitor VS and INR. Patient aware of next visit. Instruct Medication Management Problem:Medication Management Goal:Medications Completed Patient taking medications as prescribed. Assess Pain Characteristics and Current Pain Regimen and Instruct Methods of Pain Relief Problem:Pain Management Goal:Pain Completed [facility] Visit Details Visit Type -PT Initial Evalu ation Discipline -Physical Therapy Problems Problem Start Date Status Goals Interventions Wound Care and/or Skin Problems Disciplines: Physical Therapy 11/14/2023 Active 1 goal linked to scheduled/documented intervention 1 goal intervention scheduled/documented in this visit Assess and Instruct Home Visit Disciplines: Physical Therapy 11/14/2023 Active 2 goals linked to scheduled/documented interventions 4 goal interventions scheduled/documented in this visit Home Exercise Program Disciplines: Physical Therapy 11/14/2023 Active 1 goal linked to scheduled/documented intervention 1 goal intervention scheduled/documented in this visit Goals Goal Associated Problem Outcome Goal Met? Visit Notes Wound/Incision Wound Care and/or Skin Problems No Medications Assess and Instruct Home Visit No Home Care Plan Assess and Instruct Home Visit No Home Exercise Program Home Exercise Program No Interventions Intervention Associated Problem/Goal Status Variance Visit Notes Wound/Incision Monitoring Problem:Wound Care and/or Skin Problems Goal:Wound/Incision Scheduled Instruct Medication Management Problem:Assess and Instruct Home Visit Goal:Medications Completed Home Visit Med Education: Medication list reconciled. Medication profile and in-home medication list updated with appropriate changes. Falls Problem:Assess and Instruct Home Visit Goal:Home Care Plan Scheduled Safety Problem:Assess and Instruct Home Visit Goal:Home Care Plan Scheduled Plan for Next Visit Problem:Assess and Instruct Home Visit Goal:Home Care Plan Scheduled Home Exercise Program Problem:Home Exercise Program Goal:Home Exercise Program Completed Encouraged patient on the importance of safe steady amublation using fww every waking hour with focus on the biomechanics of gait. Educated patient the importance of IC device every waking hour using slow and controlled breathing to inflate lungs, promote secretion clearance and improved circulation. [facility] Visit Details Visit Type -SN Non-[place]ASIS SOC Discipline -Penitentiary Problems Problem Start Date Status Goals Interventions Assess and Instruct Home Visit Disciplines: Penitentiary 11/06/2023 Active 1 goal linked to scheduled/documented intervention 4 goal interventions scheduled/documented in this visit Medication Management Disciplines: Penitentiary 11/06/2023 Active 1 goal linked to scheduled/documented intervention 1 goal intervention scheduled/documented in this visit Pain Management Disciplines: Penitentiary 11/06/2023 Active 1 goal linked to scheduled/documented intervention 1 goal intervention scheduled/documented in this visit Goals Goal Associated Problem Outcome Goal Met? Visit Notes Home Care Plan Assess and Instruct Home Visit No Medications Medication Management No Pain Pain Management No Interventions Intervention Associated Problem/Goal Status Variance Visit Notes Falls Problem:Assess and Instruct Home Visit Goal:Home Care Plan Completed Clinician taught: patient and caregiver 1-3 Patient is NOT at risk for falls and clinician instructed: proper footwear, remove clutter and throw rugs, non-slip mats in tubs/showers, handrails/grab bar placement, assistive device usage, keep frequently used items in reach and emergency response system and/or keep phone on you. Patient/caregiver was able to demonstrate 100% via teachback Safety Problem:Assess and Instruct Home Visit Goal:Home Care Plan Completed Assessed patient vulnerability and home safety risks: low risk Equipment reviewed wheeled walker, grab bars to be installed. Patient at risk for harm or abuse no Family members involved in safety plan for Level 2 or 3 NA Discharge Planning Problem:Assess and Instruct Home Visit Goal:Home Care Plan Completed Home Visit DC Planning: Spoke with patient and caregiver about DC planning. Assessed for limited ambulation related to weakness, unsteady gait/poor balance, unstable BP and poor endurance related to recent surgery for AAA. DC will occur when: patient/caregiver is able to demonstrate pt verbalizes understanding of discharge goals and plans Anticipate DC: On time Patient and/or caregiver response to discharge planning education: understanding Plan for Next Visit Problem:Assess and Instruct Home Visit Goal:Home Care Plan Completed Follow up education for next visit: Patient on Warfarin therapy will have an understanding of bleeding precautions , dietary intake with warfarin therapy and knowledge and understanding of anticoagulation therapy.. And be free of any Active bleeding . Skilled intervention at next visit: assess blood pressure, ambulation safety, coumadin therapy Instruct Medication Management Problem:Medication Management Goal:Medications Completed Home Visit Med Education: Medication list reconciled. Medication profile and in-home medication list updated with appropriate changes. Discrepanices noted during home visit: yes, including parameter on blood pressue meds Instructed patient on dosing, purpose, and side effects. Medication education completed today on bp medication(s). Patient/caregiver is able to teach back 100% of instruction. Assess Pain Characteristics and Current Pain Regimen and Instruct Methods of Pain Relief Problem:Pain Management Goal:Pain Completed [facility] Visit Details Visit Type -RECYCLING TECHNICIAN Routine Visi t Discipline -Physical Therapy Problems Problem Start Date Status Goals Interventions Wound Care and/or Skin Problems Disciplines: Physical Therapy 11/14/2023 Active 1 goal linked to scheduled/documented intervention 1 goal intervention scheduled/documented in this visit Assess and Instruct Home Visit Disciplines: Physical Therapy 11/14/2023 Active 2 goals linked to scheduled/documented interventions 4 goal interventions scheduled/documented in this visit Home Exercise Program Disciplines: Physical Therapy 11/14/2023 Active 1 goal linked to scheduled/documented intervention 1 goal intervention scheduled/documented in this visit Mobility Disciplines: Physical Therapy 11/14/2023 Active 1 goal linked to scheduled/documented intervention 1 goal intervention scheduled/documented in this visit Goals Goal Associated Problem Outcome Goal Met? Visit Notes Wound/Incision Wound Care and/or Skin Problems No Medications Assess and Instruct Home Visit No Home Care Plan Assess and Instruct Home Visit No Home Exercise Program Home Exercise Program No Mobility Mobility No Interventions Intervention Associated Problem/Goal Status Variance Visit Notes Wound/Incision Monitoring Problem:Wound Care and/or Skin Problems Goal:Wound/Incision Completed Educated patient on hand hygiene and infection control techniques, signs/symptoms of infection and when to call or report concerns to home health or provider. patient able to verbalize teach back of hand hygiene, signs/symptoms of infection and when to call or report concerns to home health or provider. Instruct Medication Management Problem:Assess and Instruct Home Visit Goal:Medications Completed Home Visit Med Education: Medication list reconciled. Medication profile and in-home medication list updated with appropriate changes. Discrepanices noted during home visit: none Instructed patient on dosing, purpose, and side effects. Medication education completed today on all medication(s). Patient/caregiver is able to teach back 100% of instruction. Falls Problem:Assess and Instruct Home Visit Goal:Home Care Plan Completed Clinician taught: patient 4-10 Patient IS at risk for falls (a score of 6 or greater is a predictor of future falls) and clinician instructed: remove clutter and throw rugs, assistive device usage, keep frequently used items in reach and emergency response system and/or keep phone on you Patient/caregiver was able to demonstrate 100% via teachback Safety Problem:Assess and Instruct Home Visit Goal:Home Care Plan Completed Assessed patient vulnerability and home safety risks: fall risk Equipment reviewed fww Patient at risk for harm or abuse no Family members involved in safety plan for Level 2 or 3 Plan for Next Visit Problem:Assess and Instruct Home Visit Goal:Home Care Plan Completed Follow up education for next visit: HEP Skilled intervention at next visit: Next visit with RECYCLING TECHNICIAN to continue improving strength and balance in order to maximize safety with ambulation and functional transfers. Home Exercise Program Problem:Home Exercise Program Goal:Home Exercise Program Completed Patient reports: good understanding of HEP Clinician taught: patient Clinician instructed on: RECYCLING TECHNICIAN provides skilled instruct to perform standing therex at FWW for support including marching, hip flexion, hs curls, and, DF/PF 10x each in order to increase strength in weight bearing, progress towards LTGs, and demo increased ease with ambulation. Pt required several seated rest break due to quickly becoming fatigued and dizzy. RECYCLING TECHNICIAN monitored BP with readings all reamaining WNL at 124/70 and 106/67. Pt reports thats too low for me. RECYCLING TECHNICIAN provides skilled instruct to perform seated therex this date including LAQ, marching, and hip abduction 15x each in order to increase BLE strength in order to progress towards ambulation and transfer goals. Provided VC to achieve full range in order to properly engage specific muscle groups. Patient/caregiver is able to teach back 100% of instruction. Instruct Mobility Problem:Mobility Goal:Mobility Completed Patient reports: no falls Clinician taught: patient Clinician instructed on: RECYCLING TECHNICIAN provides skilled instruct to perform various transfers as outlined in transfers log requiring cues for appropriate technique and sequencing to maximize safety and to facilitate improved overall independence with ADLs. RECYCLING TECHNICIAN provides skilled instruct to ambulate with FWW with RECYCLING TECHNICIAN CGA during - provides cues/education to improve overall gait sequencing/pattern to maximize safety and decrease fall risk in order to progress independence towards STGs/LTGs. RECYCLING TECHNICIAN provides skilled instruct to ascend/descend 7 stairs this date with B UE assist on HR and noUE assist on AD for support with step to pattern and CGA. Patient/caregiver is able to teach back 100% of instruction. [facility] Visit Details Visit Type -COLEMAN Routine Vis it Discipline -Occupational Therapy Problems Problem Start Date Status Goals Interventions Mobility Disciplines: Occupational Therapy 11/08/2023 Active 1 goal linked to scheduled/documented intervention 1 goal intervention scheduled/documented in this visit Assess and Instruct Home Visit Disciplines: Occupational Therapy 11/08/2023 Active 1 goal linked to scheduled/documented intervention 3 goal interventions scheduled/documented in this visit Home Exercise Program Disciplines: Occupational Therapy 11/08/2023 Active 1 goal linked to scheduled/documented intervention 1 goal intervention scheduled/documented in this visit Goals Goal Associated Problem Outcome Goal Met? Visit Notes Mobility Mobility No Home Care Plan Assess and Instruct Home Visit No Home Exercise Program Home Exercise Program No Interventions Intervention Associated Problem/Goal Status Variance Visit Notes Instruct Mobility Problem:Mobility Goal:Mobility Completed Patient reports: she was cutting up vegetables earlier in the day Clinician taught: patient Clinician instructed on: Facilitated patient in safe completion of household distance functional mobility with use of FWW. PAtient able to navigate stairs and complete task with CGA provided. Educated patient on energy conservation techniques for self monitoring energy levels and taking rest breaks when needed letting fatigue be your guide. Patient verbalizes good understanding Patient/caregiver is able to teach back 85% of instruction. Falls Problem:Assess and Instruct Home Visit Goal:Home Care Plan Completed Patient denies any new or recent falls when asked this date. Safety Problem:Assess and Instruct Home Visit Goal:Home Care Plan Completed Assessed patient vulnerability and home safety risks: yes Equipment reviewed FWW Patient at risk for harm or abuse no Family members involved in safety plan for Level 2 or 3 yes Plan for Next Visit Problem:Assess and Instruct Home Visit Goal:Home Care Plan Completed Follow up education for next visit: HEP Skilled intervention at next visit: IADL task Home Exercise Program Problem:Home Exercise Program Goal:Home Exercise Program Completed Patient reports: she has been getting stronger Clinician taught: patient Clinician instructed on: Facilitated patient in safe completion of HEP including 1 set x 10 reps BUE shoulder flexion, shoulder internal/external rotation, shoulder lateral raises, elbow flexion/extension, wrist flexion/extension, finger flexion/extension. Provided patient with handout and visual and verbal cues for proper technique and sequencing of exercises. Patient completed therapeutic exercises for increased strength and endurance for increased ease and participation with ADL/IADL tasks and transfers. Patient/caregiver is able to teach back 80% of instruction. [facility] Visit Details Visit Type -RECYCLING TECHNICIAN Routine Visi t Discipline -Physical Therapy Problems Problem Start Date Status Goals Interventions Wound Care and/or Skin Problems Disciplines: Physical Therapy 11/14/2023 Active 1 goal linked to scheduled/documented intervention 1 goal intervention scheduled/documented in this visit Assess and Instruct Home Visit Disciplines: Physical Therapy 11/14/2023 Active 2 goals linked to scheduled/documented interventions 4 goal interventions scheduled/documented in this visit Home Exercise Program Disciplines: Physical Therapy 11/14/2023 Active 1 goal linked to scheduled/documented intervention 1 goal intervention scheduled/documented in this visit Mobility Disciplines: Physical Therapy 11/14/2023 Active 1 goal linked to scheduled/documented intervention 1 goal intervention scheduled/documented in this visit Goals Goal Associated Problem Outcome Goal Met? Visit Notes Wound/Incision Wound Care and/or Skin Problems No Medications Assess and Instruct Home Visit No Home Care Plan Assess and Instruct Home Visit No Home Exercise Program Home Exercise Program No Mobility Mobility No Interventions Intervention Associated Problem/Goal Status Variance Visit Notes Wound/Incision Monitoring Problem:Wound Care and/or Skin Problems Goal:Wound/Incision Completed Educated patient on hand hygiene and infection control techniques, signs/symptoms of infection and when to call or report concerns to home health or provider. patient able to verbalize teach back of hand hygiene, signs/symptoms of infection and when to call or report concerns to home health or provider. Instruct Medication Management Problem:Assess and Instruct Home Visit Goal:Medications Completed Home Visit Med Education: Medication list reconciled. Medication profile and in-home medication list updated with appropriate changes. Discrepanices noted during home visit: none Instructed patient on dosing, purpose, and side effects. Medication education completed today on all medication(s). Patient/caregiver is able to teach back 100% of instruction. Falls Problem:Assess and Instruct Home Visit Goal:Home Care Plan Completed Clinician taught: patient 4-10 Patient IS at risk for falls (a score of 6 or greater is a predictor of future falls) and clinician instructed: remove clutter and throw rugs, assistive device usage, keep frequently used items in reach and emergency response system and/or keep phone on you Patient/caregiver was able to demonstrate 100% via teachback Safety Problem:Assess and Instruct Home Visit Goal:Home Care Plan Completed Assessed patient vulnerability and home safety risks: fall risk Equipment reviewed fww Patient at risk for harm or abuse no Family members involved in safety plan for Level 2 or 3 Plan for Next Visit Problem:Assess and Instruct Home Visit Goal:Home Care Plan Completed Follow up education for next visit: HEP Skilled intervention at next visit: Next visit with RECYCLING TECHNICIAN to continue improving strength and balance in order to maximize safety with ambulation and functional transfers. Home Exercise Program Problem:Home Exercise Program Goal:Home Exercise Program Completed Patient reports: good understanding of HEP Clinician taught: patient Clinician instructed on: RECYCLING TECHNICIAN provides skilled instruct to perform standing therex at FWW for support including marching, hip flexion, hs curls, and, DF/PF 10x each in order to increase strength in weight bearing, progress towards LTGs, and demo increased ease with ambulation. Pt required several seated rest break due to quickly becoming fatigued and dizzy. RECYCLING TECHNICIAN monitored BP with readings all reamaining WNL at 124/70 and 106/67. Pt reports thats too low for me. RECYCLING TECHNICIAN provides skilled instruct to perform seated therex this date including LAQ, marching, and hip abduction 15x each in order to increase BLE strength in order to progress towards ambulation and transfer goals. Provided VC to achieve full range in order to properly engage specific muscle groups. Patient/caregiver is able to teach back 100% of instruction. Instruct Mobility Problem:Mobility Goal:Mobility Completed Patient reports: no falls Clinician taught: patient Clinician instructed on: RECYCLING TECHNICIAN provides skilled instruct to perform various transfers as outlined in transfers log requiring cues for appropriate technique and sequencing to maximize safety and to facilitate improved overall independence with ADLs. RECYCLING TECHNICIAN provides skilled instruct to ambulate with FWW with RECYCLING TECHNICIAN CGA during - provides cues/education to improve overall gait sequencing/pattern to maximize safety and decrease fall risk in order to progress independence towards STGs/LTGs. RECYCLING TECHNICIAN provides skilled instruct to ascend/descend 7 stairs this date with B UE assist on HR and noUE assist on AD for support with step to pattern and CGA. Patient/caregiver is able to teach back 100% of instruction. [facility] Visit Details Visit Type -CIRCUIT DESIGN ENGINEER Routine Discipline -Penitentiary Problems Problem Start Date Status Goals Interventions Assess and Instruct Home Visit Disciplines: Penitentiary 11/06/2023 Active 1 goal linked to scheduled/documented intervention 4 goal interventions scheduled/documented in this visit Medication Management Disciplines: Penitentiary 11/06/2023 Active 1 goal linked to scheduled/documented intervention 1 goal intervention scheduled/documented in this visit Pain Management Disciplines: Penitentiary 11/06/2023 Active 1 goal linked to scheduled/documented intervention 1 goal intervention scheduled/documented in this visit Goals Goal Associated Problem Outcome Goal Met? Visit Notes Home Care Plan Assess and Instruct Home Visit No Medications Medication Management No Pain Pain Management No Interventions Intervention Associated Problem/Goal Status Variance Visit Notes Falls Problem:Assess and Instruct Home Visit Goal:Home Care Plan Completed No Falls Reported. Safety Problem:Assess and Instruct Home Visit Goal:Home Care Plan Completed Low safety risk. Discharge Planning Problem:Assess and Instruct Home Visit Goal:Home Care Plan Completed Patient not being discharged at this time. Plan for Next Visit Problem:Assess and Instruct Home Visit Goal:Home Care Plan Completed Monitor VS and check INR. Patient aware of next visit. Instruct Medication Management Problem:Medication Management Goal:Medications Completed Patient taking medications as prescribed. Assess Pain Characteristics and Current Pain Regimen and Instruct Methods of Pain Relief Problem:Pain Management Goal:Pain Completed [facility] Visit Details Visit Type -RECYCLING TECHNICIAN Routine Visi t Discipline -Physical Therapy Problems Problem Start Date Status Goals Interventions Wound Care and/or Skin Problems Disciplines: Physical Therapy 11/14/2023 Active 1 goal linked to scheduled/documented intervention 1 goal intervention scheduled/documented in this visit Assess and Instruct Home Visit Disciplines: Physical Therapy 11/14/2023 Active 2 goals linked to scheduled/documented interventions 4 goal interventions scheduled/documented in this visit Home Exercise Program Disciplines: Physical Therapy 11/14/2023 Active 1 goal linked to scheduled/documented intervention 1 goal intervention scheduled/documented in this visit Mobility Disciplines: Physical Therapy 11/14/2023 Active 1 goal linked to scheduled/documented intervention 1 goal intervention scheduled/documented in this visit Goals Goal Associated Problem Outcome Goal Met? Visit Notes Wound/Incision Wound Care and/or Skin Problems No Medications Assess and Instruct Home Visit No Home Care Plan Assess and Instruct Home Visit No Home Exercise Program Home Exercise Program No Mobility Mobility No Interventions Intervention Associated Problem/Goal Status Variance Visit Notes Wound/Incision Monitoring Problem:Wound Care and/or Skin Problems Goal:Wound/Incision Completed Educated patient on hand hygiene and infection control techniques, signs/symptoms of infection and when to call or report concerns to home health or provider. patient able to verbalize teach back of hand hygiene, signs/symptoms of infection and when to call or report concerns to home health or provider. Instruct Medication Management Problem:Assess and Instruct Home Visit Goal:Medications Completed Home Visit Med Education: Medication list reconciled. Medication profile and in-home medication list updated with appropriate changes. Discrepanices noted during home visit: none Instructed patient on dosing, purpose, and side effects. Medication education completed today on all medication(s). Patient/caregiver is able to teach back 100% of instruction. Falls Problem:Assess and Instruct Home Visit Goal:Home Care Plan Completed Clinician taught: patient 4-10 Patient IS at risk for falls (a score of 6 or greater is a predictor of future falls) and clinician instructed: assistive device usage, keep frequently used items in reach and emergency response system and/or keep phone on you Patient/caregiver was able to demonstrate 100% via teachback Safety Problem:Assess and Instruct Home Visit Goal:Home Care Plan Completed Assessed patient vulnerability and home safety risks: fall risk Equipment reviewed fww Patient at risk for harm or abuse no Family members involved in safety plan for Level 2 or 3 Plan for Next Visit Problem:Assess and Instruct Home Visit Goal:Home Care Plan Completed Follow up education for next visit: safety with amb Skilled intervention at next visit: Next visit with RECYCLING TECHNICIAN to continue improving strength and balance in order to maximize safety with ambulation and functional transfers. Home Exercise Program Problem:Home Exercise Program Goal:Home Exercise Program Completed Patient reports: fair compliance Clinician taught: patient Clinician instructed on: RECYCLING TECHNICIAN provides skilled instruct to perform seated therex this date including LAQ, marching, DF/PF, isometric hip adduction, and hip abduction 15x each, and consecutive STS transfer 5x in order to increase BLE strength in order to progress towards ambulation and transfer goals. Provided VC to achieve full range in order to properly engage specific muscle groups. Held on standing therex per pt request as she reports standing drops her BP and makes her feel dizzy. Patient/caregiver is able to teach back 100% of instruction. Instruct Mobility Problem:Mobility Goal:Mobility Completed Patient reports: no falls Clinician taught: patient Clinician instructed on: RECYCLING TECHNICIAN provides skilled instruct to ascend/descend 7 stairs this date with B UE assist on HR and noUE assist on AD for support with step to pattern and CGA for safety. RECYCLING TECHNICIAN provides skilled instruct to perform STS transfers requiring VC for proper hand placement to rise and lower self from surface safely and for controlled descent upon sitting to ensure safety. Patient uses BUE to rise and lower self and utilizes FWW upon standing for support with good immediate standing balance displayed - patient achieve stand on first attempt 100% of time this date. RECYCLING TECHNICIAN provides skilled instruct to ambulate with FWW with RECYCLING TECHNICIAN CGA during - provides cues/education to improve overall gait sequencing/pattern to maximize safety and decrease fall risk in order to progress independence towards STGs/LTGs. Pt unable to amb further distances at a time due to becoming light headed while up. Patient/caregiver is able to teach back 100% of instruction. [facility] Visit Details Visit Type -COLEMAN Routine Vis it Discipline -Occupational Therapy Problems Problem Start Date Status Goals Interventions Assess and Instruct Home Visit Disciplines: Occupational Therapy 11/08/2023 Active 1 goal linked to scheduled/documented intervention 3 goal interventions scheduled/documented in this visit Home Exercise Program Disciplines: Occupational Therapy 11/08/2023 Active 1 goal linked to scheduled/documented intervention 1 goal intervention scheduled/documented in this visit Goals Goal Associated Problem Outcome Goal Met? Visit Notes Home Care Plan Assess and Instruct Home Visit No Home Exercise Program Home Exercise Program No Interventions Intervention Associated Problem/Goal Status Variance Visit Notes Falls Problem:Assess and Instruct Home Visit Goal:Home Care Plan Completed Patient denies any new or recent falls when asked this date. Safety Problem:Assess and Instruct Home Visit Goal:Home Care Plan Completed Assessed patient vulnerability and home safety risks: yes Equipment reviewed FWW Patient at risk for harm or abuse no Family members involved in safety plan for Level 2 or 3 yes Plan for Next Visit Problem:Assess and Instruct Home Visit Goal:Home Care Plan Completed Follow up education for next visit: HEP Skilled intervention at next visit: shower/toilet transfer Home Exercise Program Problem:Home Exercise Program Goal:Home Exercise Program Completed Patient reports: that she is having a problem with diarrhea this date, only agreeable to exercises in supine. Clinician taught: patient Clinician instructed on: Facilitated patient in safe completion of supine HEP including 1 set x 10 reps BUE shoulder flexion, shoulder internal/external rotation, elbow flexion/extension, wrist flexion/extension, finger flexion/extension. Reviewed handout and provided visual and verbal cues for proper technique and sequencing of exercises. Patient completed therapeutic exercises for increased strength and endurance for increased ease and participation with ADL/IADL tasks and transfers. Patient/caregiver is able to teach back 80% of instruction. [facility] Visit Details Visit Type -RECYCLING TECHNICIAN Routine Visi t Discipline -Physical Therapy Problems Problem Start Date Status Goals Interventions Wound Care and/or Skin Problems Disciplines: Physical Therapy 11/14/2023 Active 1 goal linked to scheduled/documented intervention 1 goal intervention scheduled/documented in this visit Assess and Instruct Home Visit Disciplines: Physical Therapy 11/14/2023 Active 2 goals linked to scheduled/documented interventions 4 goal interventions scheduled/documented in this visit Goals Goal Associated Problem Outcome Goal Met? Visit Notes Wound/Incision Wound Care and/or Skin Problems No Medications Assess and Instruct Home Visit No Home Care Plan Assess and Instruct Home Visit No Interventions Intervention Associated Problem/Goal Status Variance Visit Notes Wound/Incision Monitoring Problem:Wound Care and/or Skin Problems Goal:Wound/Incision Completed Educated patient on hand hygiene and infection control techniques, signs/symptoms of infection and when to call or report concerns to home health or provider. patient able to verbalize teach back of hand hygiene, signs/symptoms of infection and when to call or report concerns to home health or provider. Instruct Medication Management Problem:Assess and Instruct Home Visit Goal:Medications Completed Home Visit Med Education: Medication list reconciled. Medication profile and in-home medication list updated with appropriate changes. Discrepanices noted during home visit: none Instructed patient on dosing, purpose, and side effects. Medication education completed today on all medication(s). Patient/caregiver is able to teach back 100% of instruction. Falls Problem:Assess and Instruct Home Visit Goal:Home Care Plan Completed Clinician taught: patient 4-10 Patient IS at risk for falls (a score of 6 or greater is a predictor of future falls) and clinician instructed: remove clutter and throw rugs, assistive device usage, keep frequently used items in reach and emergency response system and/or keep phone on you Patient/caregiver was able to demonstrate 100% via teachback Safety Problem:Assess and Instruct Home Visit Goal:Home Care Plan Completed Assessed patient vulnerability and home safety risks: fall risk Equipment reviewed fww Patient at risk for harm or abuse no Family members involved in safety plan for Level 2 or 3 Plan for Next Visit Problem:Assess and Instruct Home Visit Goal:Home Care Plan Completed Follow up education for next visit: progress HEP Skilled intervention at next visit: Next visit with RECYCLING TECHNICIAN to continue improving strength and balance in order to maximize safety with ambulation and functional transfers. [facility] Visit Details Visit Type -COLEMAN Routine Vis it Discipline -Occupational Therapy Problems Problem Start Date Status Goals Interventions Mobility Disciplines: Occupational Therapy 11/08/2023 Active 1 goal linked to scheduled/documented intervention 1 goal intervention scheduled/documented in this visit Assess and Instruct Home Visit Disciplines: Occupational Therapy 11/08/2023 Active 1 goal linked to scheduled/documented intervention 3 goal interventions scheduled/documented in this visit Home Exercise Program Disciplines: Occupational Therapy 11/08/2023 Active 1 goal linked to scheduled/documented intervention 1 goal intervention scheduled/documented in this visit Goals Goal Associated Problem Outcome Goal Met? Visit Notes Mobility Mobility No Home Care Plan Assess and Instruct Home Visit No Home Exercise Program Home Exercise Program No Interventions Intervention Associated Problem/Goal Status Variance Visit Notes Instruct Mobility Problem:Mobility Goal:Mobility Completed Patient reports: she was not feeling very good yesterday but she is a little better today Clinician taught: patient Clinician instructed on: Faciltiated patient in safe completion of tub and shower transfer this date. Provded patient with min verbal cues for increased safety awareness and proper technique with task. PAtient able to complete with SBA provided. Patient/caregiver is able to teach back 90% of instruction. Falls Problem:Assess and Instruct Home Visit Goal:Home Care Plan Completed Patient denies any new or recent falls when asked this date. Safety Problem:Assess and Instruct Home Visit Goal:Home Care Plan Completed Assessed patient vulnerability and home safety risks: yes Equipment reviewed FWW Patient at risk for harm or abuse no Family members involved in safety plan for Level 2 or 3 yes Plan for Next Visit Problem:Assess and Instruct Home Visit Goal:Home Care Plan Completed Follow up education for next visit: HEP Skilled intervention at next visit: IADL tasks Home Exercise Program Problem:Home Exercise Program Goal:Home Exercise Program Completed Patient reports: she feels like she is starting to get a little stronger Clinician taught: patient Clinician instructed on: Facilitated patient in safe completion of HEP including 1 set x 10 reps BUE shoulder flexion, shoulder internal/external rotation, shoulder lateral raises, elbow flexion/extension, wrist flexion/extension, finger flexion/extension. Reviewed HEP handout and provided verbal cues for proper technique and sequencing of exercises. Patient completed therapeutic exercises for increased strength and endurance for increased ease and participation with ADL/IADL tasks and transfers. Patient/caregiver is able to teach back 90% of instruction. [facility] Visit Details Visit Type -COLEMAN Routine Vis it Discipline -Occupational Therapy Problems Problem Start Date Status Goals Interventions Mobility Disciplines: Occupational Therapy 11/08/2023 Active 1 goal linked to scheduled/documented intervention 1 goal intervention scheduled/documented in this visit Assess and Instruct Home Visit Disciplines: Occupational Therapy 11/08/2023 Active 1 goal linked to scheduled/documented intervention 3 goal interventions scheduled/documented in this visit Home Exercise Program Disciplines: Occupational Therapy 11/08/2023 Active 1 goal linked to scheduled/documented intervention 1 goal intervention scheduled/documented in this visit Goals Goal Associated Problem Outcome Goal Met? Visit Notes Mobility Mobility No Home Care Plan Assess and Instruct Home Visit No Home Exercise Program Home Exercise Program No Interventions Intervention Associated Problem/Goal Status Variance Visit Notes Instruct Mobility Problem:Mobility Goal:Mobility Completed Patient reports: she feels like she is getting much stronger Clinician taught: patient Clinician instructed on: Faciltiated patient in safe completion of tub and shower transfer this date. Provded patient with min verbal cues for increased safety awareness and proper technique with task. Patient able to complete with SUP provided. Patient/caregiver is able to teach back 100% of instruction. Falls Problem:Assess and Instruct Home Visit Goal:Home Care Plan Completed Patient denies any new or recent falls when asked this date Safety Problem:Assess and Instruct Home Visit Goal:Home Care Plan Completed Assessed patient vulnerability and home safety risks: yes Equipment reviewed FWW Patient at risk for harm or abuse no Family members involved in safety plan for Level 2 or 3 yes Plan for Next Visit Problem:Assess and Instruct Home Visit Goal:Home Care Plan Completed Follow up education for next visit: HEP Skilled intervention at next visit: OT RA Home Exercise Program Problem:Home Exercise Program Goal:Home Exercise Program Completed Patient reports: she has been completing exercises thrughout the day, typically once in the morning, the afternoon, and in the evening Clinician taught: patient Clinician instructed on: Facilitated patient in safe completion of HEP including 1 set x 10 reps BUE shoulder flexion, shoulder internal/external rotation, shoulder lateral raises, elbow flexion/extension, wrist flexion/extension, finger flexion/extension. Reviewed HEP handout and provided min verbal cues for proper technique and sequencing of exercises. Patient completed therapeutic exercises for increased strength and endurance for increased ease and participation with ADL/IADL tasks and transfers. Patient/caregiver is able to teach back 90% of instruction. [facility] Visit Details Visit Type -RECYCLING TECHNICIAN Routine Visi t Discipline -Physical Therapy Problems Problem Start Date Status Goals Interventions Wound Care and/or Skin Problems Disciplines: Physical Therapy 11/14/2023 Active 1 goal linked to scheduled/documented intervention 1 goal intervention scheduled/documented in this visit Assess and Instruct Home Visit Disciplines: Physical Therapy 11/14/2023 Active 2 goals linked to scheduled/documented interventions 4 goal interventions scheduled/documented in this visit Home Exercise Program Disciplines: Physical Therapy 11/14/2023 Active 1 goal linked to scheduled/documented intervention 1 goal intervention scheduled/documented in this visit Mobility Disciplines: Physical Therapy 11/14/2023 Active 1 goal linked to scheduled/documented intervention 1 goal intervention scheduled/documented in this visit Goals Goal Associated Problem Outcome Goal Met? Visit Notes Wound/Incision Wound Care and/or Skin Problems No Medications Assess and Instruct Home Visit No Home Care Plan Assess and Instruct Home Visit No Home Exercise Program Home Exercise Program No Mobility Mobility No Interventions Intervention Associated Problem/Goal Status Variance Visit Notes Wound/Incision Monitoring Problem:Wound Care and/or Skin Problems Goal:Wound/Incision Completed Educated patient on hand hygiene and infection control techniques, signs/symptoms of infection and when to call or report concerns to home health or provider. patient able to verbalize teach back of hand hygiene, signs/symptoms of infection and when to call or report concerns to home health or provider. Instruct Medication Management Problem:Assess and Instruct Home Visit Goal:Medications Completed Home Visit Med Education: Medication list reconciled. Medication profile and in-home medication list updated with appropriate changes. Discrepanices noted during home visit: none Instructed patient on dosing, purpose, and side effects. Medication education completed today on all medication(s). Patient/caregiver is able to teach back 100% of instruction. Falls Problem:Assess and Instruct Home Visit Goal:Home Care Plan Completed Clinician taught: patient 4-10 Patient IS at risk for falls (a score of 6 or greater is a predictor of future falls) and clinician instructed: remove clutter and throw rugs, assistive device usage, keep frequently used items in reach and emergency response system and/or keep phone on you Patient/caregiver was able to demonstrate 100% via teachback Safety Problem:Assess and Instruct Home Visit Goal:Home Care Plan Completed Assessed patient vulnerability and home safety risks: fall risk Equipment reviewed fww Patient at risk for harm or abuse no Family members involved in safety plan for Level 2 or 3 Plan for Next Visit Problem:Assess and Instruct Home Visit Goal:Home Care Plan Completed Follow up education for next visit: standing balance Skilled intervention at next visit: Next visit with RECYCLING TECHNICIAN to continue improving strength and balance in order to maximize safety with ambulation and functional transfers. Home Exercise Program Problem:Home Exercise Program Goal:Home Exercise Program Completed Patient reports: fair compliance Clinician taught: patient Clinician instructed on: RECYCLING TECHNICIAN provides skilled instruct to perform standing therex at FWW for support including marching, hip flexion, hs curls, DF/PF, and mini squats 10x each in order to increase strength in weight bearing, progress towards LTGs, and demo increased ease with ambulation. Pt required several seated rest breaks between each exericse and reports my back hurts or im lightheaded. RECYCLING TECHNICIAN attempted to encourage pt to stand for prolonged time and pt declined. Patient/caregiver is able to teach back 100% of instruction. Instruct Mobility Problem:Mobility Goal:Mobility Completed Patient reports: no falls Clinician taught: patient Clinician instructed on: RECYCLING TECHNICIAN provides skilled instruct to ascend/descend 7 stairs this date with one UE assist on HR and no UE assist on AD for support with step to pattern and SBA. RECYCLING TECHNICIAN provides skilled instruct to ambulate 30ft 2x with FWW with RECYCLING TECHNICIAN SBA during - provides cues/education to improve overall gait sequencing/pattern to maximize safety and decrease fall risk in order to progress independence towards STGs/LTGs. Pt declined to amb further distances at a time and reports my back hurts. Pt will be obtaining a SPC to trial soon. RECYCLING TECHNICIAN provides skilled instruct to perform various transfers as outlined in transfers log requiring cues for appropriate technique and sequencing to maximize safety and to facilitate improved overall independence with ADLs. Patient/caregiver is able to teach back 100% of instruction. [facility] Visit Details Visit Type -COLEMAN Routine Vis it Discipline -Occupational Therapy Problems Problem Start Date Status Goals Interventions Mobility Disciplines: Occupational Therapy 11/08/2023 Active 1 goal linked to scheduled/documented intervention 1 goal intervention scheduled/documented in this visit Assess and Instruct Home Visit Disciplines: Occupational Therapy 11/08/2023 Active 1 goal linked to scheduled/documented intervention 3 goal interventions scheduled/documented in this visit Home Exercise Program Disciplines: Occupational Therapy 11/08/2023 Active 1 goal linked to scheduled/documented intervention 1 goal intervention scheduled/documented in this visit Goals Goal Associated Problem Outcome Goal Met? Visit Notes Mobility Mobility No Home Care Plan Assess and Instruct Home Visit No Home Exercise Program Home Exercise Program No Interventions Intervention Associated Problem/Goal Status Variance Visit Notes Instruct Mobility Problem:Mobility Goal:Mobility Completed Patient reports: she was not feeling very good yesterday but she is a little better today Clinician taught: patient Clinician instructed on: Faciltiated patient in safe completion of tub and shower transfer this date. Provded patient with min verbal cues for increased safety awareness and proper technique with task. PAtient able to complete with SBA provided. Patient/caregiver is able to teach back 90% of instruction. Falls Problem:Assess and Instruct Home Visit Goal:Home Care Plan Completed Patient denies any new or recent falls when asked this date. Safety Problem:Assess and Instruct Home Visit Goal:Home Care Plan Completed Assessed patient vulnerability and home safety risks: yes Equipment reviewed FWW Patient at risk for harm or abuse no Family members involved in safety plan for Level 2 or 3 yes Plan for Next Visit Problem:Assess and Instruct Home Visit Goal:Home Care Plan Completed Follow up education for next visit: HEP Skilled intervention at next visit: IADL tasks Home Exercise Program Problem:Home Exercise Program Goal:Home Exercise Program Completed Patient reports: she feels like she is starting to get a little stronger Clinician taught: patient Clinician instructed on: Facilitated patient in safe completion of HEP including 1 set x 10 reps BUE shoulder flexion, shoulder internal/external rotation, shoulder lateral raises, elbow flexion/extension, wrist flexion/extension, finger flexion/extension. Reviewed HEP handout and provided verbal cues for proper technique and sequencing of exercises. Patient completed therapeutic exercises for increased strength and endurance for increased ease and participation with ADL/IADL tasks and transfers. Patient/caregiver is able to teach back 90% of instruction. [facility] Visit Details Visit Type -COLEMAN Routine Vis it Discipline -Occupational Therapy Problems Problem Start Date Status Goals Interventions Mobility Disciplines: Occupational Therapy 11/08/2023 Active 1 goal linked to scheduled/documented intervention 1 goal intervention scheduled/documented in this visit Assess and Instruct Home Visit Disciplines: Occupational Therapy 11/08/2023 Active 1 goal linked to scheduled/documented intervention 3 goal interventions scheduled/documented in this visit Home Exercise Program Disciplines: Occupational Therapy 11/08/2023 Active 1 goal linked to scheduled/documented intervention 1 goal intervention scheduled/documented in this visit Goals Goal Associated Problem Outcome Goal Met? Visit Notes Mobility Mobility No Home Care Plan Assess and Instruct Home Visit No Home Exercise Program Home Exercise Program No Interventions Intervention Associated Problem/Goal Status Variance Visit Notes Instruct Mobility Problem:Mobility Goal:Mobility Completed Patient reports: she was cutting up vegetables earlier in the day Clinician taught: patient Clinician instructed on: Facilitated patient in safe completion of household distance functional mobility with use of FWW. PAtient able to navigate stairs and complete task with CGA provided. Educated patient on energy conservation techniques for self monitoring energy levels and taking rest breaks when needed letting fatigue be your guide. Patient verbalizes good understanding Patient/caregiver is able to teach back 85% of instruction. Falls Problem:Assess and Instruct Home Visit Goal:Home Care Plan Completed Patient denies any new or recent falls when asked this date. Safety Problem:Assess and Instruct Home Visit Goal:Home Care Plan Completed Assessed patient vulnerability and home safety risks: yes Equipment reviewed FWW Patient at risk for harm or abuse no Family members involved in safety plan for Level 2 or 3 yes Plan for Next Visit Problem:Assess and Instruct Home Visit Goal:Home Care Plan Completed Follow up education for next visit: HEP Skilled intervention at next visit: IADL task Home Exercise Program Problem:Home Exercise Program Goal:Home Exercise Program Completed Patient reports: she has been getting stronger Clinician taught: patient Clinician instructed on: Facilitated patient in safe completion of HEP including 1 set x 10 reps BUE shoulder flexion, shoulder internal/external rotation, shoulder lateral raises, elbow flexion/extension, wrist flexion/extension, finger flexion/extension. Provided patient with handout and visual and verbal cues for proper technique and sequencing of exercises. Patient completed therapeutic exercises for increased strength and endurance for increased ease and participation with ADL/IADL tasks and transfers. Patient/caregiver is able to teach back 80% of instruction. [facility] Visit Details Visit Type -COLEMAN Routine Vis it Discipline -Occupational Therapy Problems Problem Start Date Status Goals Interventions Assess and Instruct Home Visit Disciplines: Occupational Therapy 11/08/2023 Active 1 goal linked to scheduled/documented intervention 3 goal interventions scheduled/documented in this visit Home Exercise Program Disciplines: Occupational Therapy 11/08/2023 Active 1 goal linked to scheduled/documented intervention 1 goal intervention scheduled/documented in this visit Goals Goal Associated Problem Outcome Goal Met? Visit Notes Home Care Plan Assess and Instruct Home Visit No Home Exercise Program Home Exercise Program No Interventions Intervention Associated Problem/Goal Status Variance Visit Notes Falls Problem:Assess and Instruct Home Visit Goal:Home Care Plan Completed Patient denies any new or recent falls when asked this date. Safety Problem:Assess and Instruct Home Visit Goal:Home Care Plan Completed Assessed patient vulnerability and home safety risks: yes Equipment reviewed FWW Patient at risk for harm or abuse no Family members involved in safety plan for Level 2 or 3 yes Plan for Next Visit Problem:Assess and Instruct Home Visit Goal:Home Care Plan Completed Follow up education for next visit: HEP Skilled intervention at next visit: IADL Home Exercise Program Problem:Home Exercise Program Goal:Home Exercise Program Completed Patient reports: feeling like she is getting a little stronger Clinician taught: patient Clinician instructed on: Facilitated patient in safe completion of supine HEP including 1 set x 10 reps BUE shoulder flexion, shoulder internal/external rotation, shoulder lateral raises, elbow flexion/extension, wrist flexion/extension, finger flexion/extension. Provided patient with visual and verbal cues for proper technique and sequencing of exercises. Patient completed therapeutic exercises for increased strength and endurance for increased ease and participation with ADL/IADL tasks and transfers. Patient/caregiver is able to teach back 75% of instruction. [facility] Visit Details Visit Type -COLEMAN Routine Vis it Discipline -Occupational Therapy Problems Problem Start Date Status Goals Interventions Assess and Instruct Home Visit Disciplines: Occupational Therapy 11/08/2023 Active 1 goal linked to scheduled/documented intervention 3 goal interventions scheduled/documented in this visit Home Exercise Program Disciplines: Occupational Therapy 11/08/2023 Active 1 goal linked to scheduled/documented intervention 1 goal intervention scheduled/documented in this visit Goals Goal Associated Problem Outcome Goal Met? Visit Notes Home Care Plan Assess and Instruct Home Visit No Home Exercise Program Home Exercise Program No Interventions Intervention Associated Problem/Goal Status Variance Visit Notes Falls Problem:Assess and Instruct Home Visit Goal:Home Care Plan Completed Patient denies any new or recent falls when asked this date. Safety Problem:Assess and Instruct Home Visit Goal:Home Care Plan Completed Assessed patient vulnerability and home safety risks: yes Equipment reviewed FWW Patient at risk for harm or abuse no Family members involved in safety plan for Level 2 or 3 yes Plan for Next Visit Problem:Assess and Instruct Home Visit Goal:Home Care Plan Completed Follow up education for next visit: HEP Skilled intervention at next visit: shower/toilet transfer Home Exercise Program Problem:Home Exercise Program Goal:Home Exercise Program Completed Patient reports: that she is having a problem with diarrhea this date, only agreeable to exercises in supine. Clinician taught: patient Clinician instructed on: Facilitated patient in safe completion of supine HEP including 1 set x 10 reps BUE shoulder flexion, shoulder internal/external rotation, elbow flexion/extension, wrist flexion/extension, finger flexion/extension. Reviewed handout and provided visual and verbal cues for proper technique and sequencing of exercises. Patient completed therapeutic exercises for increased strength and endurance for increased ease and participation with ADL/IADL tasks and transfers. Patient/caregiver is able to teach back 80% of instruction. [facility] Visit Details Visit Type -RECYCLING TECHNICIAN Routine Visi t Discipline -Physical Therapy Problems Problem Start Date Status Goals Interventions Wound Care and/or Skin Problems Disciplines: Physical Therapy 11/14/2023 Active 1 goal linked to scheduled/documented intervention 1 goal intervention scheduled/documented in this visit Assess and Instruct Home Visit Disciplines: Physical Therapy 11/14/2023 Active 2 goals linked to scheduled/documented interventions 4 goal interventions scheduled/documented in this visit Home Exercise Program Disciplines: Physical Therapy 11/14/2023 Active 1 goal linked to scheduled/documented intervention 1 goal intervention scheduled/documented in this visit Mobility Disciplines: Physical Therapy 11/14/2023 Active 1 goal linked to scheduled/documented intervention 1 goal intervention scheduled/documented in this visit Goals Goal Associated Problem Outcome Goal Met? Visit Notes Wound/Incision Wound Care and/or Skin Problems No Medications Assess and Instruct Home Visit No Home Care Plan Assess and Instruct Home Visit No Home Exercise Program Home Exercise Program No Mobility Mobility No Interventions Intervention Associated Problem/Goal Status Variance Visit Notes Wound/Incision Monitoring Problem:Wound Care and/or Skin Problems Goal:Wound/Incision Completed Educated patient on hand hygiene and infection control techniques, signs/symptoms of infection and when to call or report concerns to home health or provider. patient able to verbalize teach back of hand hygiene, signs/symptoms of infection and when to call or report concerns to home health or provider. Instruct Medication Management Problem:Assess and Instruct Home Visit Goal:Medications Completed Home Visit Med Education: Medication list reconciled. Medication profile and in-home medication list updated with appropriate changes. Discrepanices noted during home visit: none Instructed patient on dosing, purpose, and side effects. Medication education completed today on all medication(s). Patient/caregiver is able to teach back 100% of instruction. Falls Problem:Assess and Instruct Home Visit Goal:Home Care Plan Completed Clinician taught: patient 4-10 Patient IS at risk for falls (a score of 6 or greater is a predictor of future falls) and clinician instructed: remove clutter and throw rugs, assistive device usage, keep frequently used items in reach and emergency response system and/or keep phone on you Patient/caregiver was able to demonstrate 100% via teachback Safety Problem:Assess and Instruct Home Visit Goal:Home Care Plan Completed Assessed patient vulnerability and home safety risks: fall risk Equipment reviewed fww Patient at risk for harm or abuse no Family members involved in safety plan for Level 2 or 3 Plan for Next Visit Problem:Assess and Instruct Home Visit Goal:Home Care Plan Completed Follow up education for next visit: amb with SPC Skilled intervention at next visit: Next visit with RECYCLING TECHNICIAN to continue improving strength and balance in order to maximize safety with ambulation and functional transfers. Home Exercise Program Problem:Home Exercise Program Goal:Home Exercise Program Completed Patient reports: fair compliance Clinician taught: patient Clinician instructed on: RECYCLING TECHNICIAN provides skilled instruct to perform seated therex this date including LAQ, marching, DF/PF, isometric hip adduction, and hip abduction 15x each, and consecutive STS transfer 7x in order to increase BLE strength in order to progress towards ambulation and transfer goals. Provided VC to achieve full range in order to properly engage specific muscle groups. Pt attempted standing therex and had to return to sitting due to increased back pain and requested to complete seated therex instead. Patient/caregiver is able to teach back 100% of instruction. Instruct Mobility Problem:Mobility Goal:Mobility Completed Patient reports: no falls Clinician taught: patient Clinician instructed on: RECYCLING TECHNICIAN provides skilled instruct to ascend/descend 7 stairs this date with one UE assist on HR and no UE assist on AD for support with step to pattern and SBA. RECYCLING TECHNICIAN provides skilled instruct to perform consecutive STS transfers 7x requiring VC for proper hand placement to rise and lower self from surface safely and for controlled descent upon sitting to ensure safety. Patient uses BUE to rise and lower self and utilizes no AD upon standing for support with good immediate standing balance displayed - patient achieve stand on first attempt 100% of time this date. RECYCLING TECHNICIAN provides skilled instruct to ambulate with FWW with RECYCLING TECHNICIAN SBA during - provides cues/education to improve overall gait sequencing/pattern to maximize safety and decrease fall risk in order to progress independence towards STGs/LTGs. Pt reports she has a SPC coming today. Patient/caregiver is able to teach back 100% of instruction. 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 Routine Discipline -Penitentiary Problems Problem Start Date Status Goals Interventions Assess and Instruct Home Visit Disciplines: Penitentiary 11/06/2023 Active 1 goal linked to scheduled/documented intervention 4 goal interventions scheduled/documented in this visit Medication Management Disciplines: Penitentiary 11/06/2023 Active 1 goal linked to scheduled/documented intervention 1 goal intervention scheduled/documented in this visit Pain Management Disciplines: Penitentiary 11/06/2023 Active 1 goal linked to scheduled/documented intervention 1 goal intervention scheduled/documented in this visit Goals Goal Associated Problem Outcome Goal Met? Visit Notes Home Care Plan Assess and Instruct Home Visit No Medications Medication Management No Pain Pain Management No Interventions Intervention Associated Problem/Goal Status Variance Visit Notes Falls Problem:Assess and Instruct Home Visit Goal:Home Care Plan Completed No Falls reported. Safety Problem:Assess and Instruct Home Visit Goal:Home Care Plan Completed Low safety risk. Discharge Planning Problem:Assess and Instruct Home Visit Goal:Home Care Plan Completed Patient not being discharged at this time. Plan for Next Visit Problem:Assess and Instruct Home Visit Goal:Home Care Plan Completed Monitor VS and check PT/INR. Patient aware of next visit. Instruct Medication Management Problem:Medication Management Goal:Medications Completed Patient taking medications as prescribed. Assess Pain Characteristics and Current Pain Regimen and Instruct Methods of Pain Relief Problem:Pain Management Goal:Pain Completed [facility] Visit Details Visit Type -COLEMAN Routine Vis it Discipline -Occupational Therapy Problems Problem Start Date Status Goals Interventions Mobility Disciplines: Occupational Therapy 11/08/2023 Active 1 goal linked to scheduled/documented intervention 1 goal intervention scheduled/documented in this visit Assess and Instruct Home Visit Disciplines: Occupational Therapy 11/08/2023 Active 1 goal linked to scheduled/documented intervention 3 goal interventions scheduled/documented in this visit Home Exercise Program Disciplines: Occupational Therapy 11/08/2023 Active 1 goal linked to scheduled/documented intervention 1 goal intervention scheduled/documented in this visit Goals Goal Associated Problem Outcome Goal Met? Visit Notes Mobility Mobility No Home Care Plan Assess and Instruct Home Visit No Home Exercise Program Home Exercise Program No Interventions Intervention Associated Problem/Goal Status Variance Visit Notes Instruct Mobility Problem:Mobility Goal:Mobility Completed Patient reports: she feels like she is getting much stronger Clinician taught: patient Clinician instructed on: Faciltiated patient in safe completion of tub and shower transfer this date. Provded patient with min verbal cues for increased safety awareness and proper technique with task. Patient able to complete with SUP provided. Patient/caregiver is able to teach back 100% of instruction. Falls Problem:Assess and Instruct Home Visit Goal:Home Care Plan Completed Patient denies any new or recent falls when asked this date Safety Problem:Assess and Instruct Home Visit Goal:Home Care Plan Completed Assessed patient vulnerability and home safety risks: yes Equipment reviewed FWW Patient at risk for harm or abuse no Family members involved in safety plan for Level 2 or 3 yes Plan for Next Visit Problem:Assess and Instruct Home Visit Goal:Home Care Plan Completed Follow up education for next visit: HEP Skilled intervention at next visit: OT RA Home Exercise Program Problem:Home Exercise Program Goal:Home Exercise Program Completed Patient reports: she has been completing exercises throughout the day, typically once in the morning, the afternoon, and in the evening Clinician taught: patient Clinician instructed on: Facilitated patient in safe completion of HEP including 1 set x 10 reps BUE shoulder flexion, shoulder internal/external rotation, shoulder lateral raises, elbow flexion/extension, wrist flexion/extension, finger flexion/extension. Reviewed HEP handout and provided min verbal cues for proper technique and sequencing of exercises. Patient completed therapeutic exercises for increased strength and endurance for increased ease and participation with ADL/IADL tasks and transfers. Patient/caregiver is able to teach back 90% of instruction. [facility] Visit Details Visit Type -OT Non-[place]/Dis cipl Discharge Discipline -Occupational Therapy Problems Problem Start Date Status Goals Interventions Mobility Disciplines: Occupational Therapy 11/08/2023 Resolved on 11/29/2023 1 goal linked to scheduled/documented intervention Assess and Instruct Home Visit Disciplines: Occupational Therapy 11/08/2023 Resolved on 11/29/2023 1 goal linked to scheduled/documented intervention Home Exercise Program Disciplines: Occupational Therapy 11/08/2023 Resolved on 11/29/2023 1 goal linked to scheduled/documented intervention Goals Goal Associated Problem Outcome Goal Met? Visit Notes Mobility Mobility Completed Yes Pt cn get onto toilet and off of toilet with use of wall grab bar. Shower area has appropriate grabbars installed. She completes 2# resistance arm exercises. Home Care Plan Assess and Instruct Home Visit Completed Yes Home Exercise Program Home Exercise Program Completed Yes Pt has been advised to have one of her exercise times in day be done in a sitting position, working toward 15 reps each of 4 exercises. She has been doing exercises in supine most times. Pt is more confident in her walking and being in kitchen for cooking or cleaning tasks over past week. She needs to continue using the 2# weights, not the 5# weights. [facility] Visit Details Visit Type -RECYCLING TECHNICIAN Routine Visi t Discipline -Physical Therapy Problems Problem Start Date Status Goals Interventions Wound Care and/or Skin Problems Disciplines: Physical Therapy 11/14/2023 Active 1 goal linked to scheduled/documented intervention 1 goal intervention scheduled/documented in this visit Assess and Instruct Home Visit Disciplines: Physical Therapy 11/14/2023 Active 2 goals linked to scheduled/documented interventions 4 goal interventions scheduled/documented in this visit Home Exercise Program Disciplines: Physical Therapy 11/14/2023 Active 1 goal linked to scheduled/documented intervention 1 goal intervention scheduled/documented in this visit Mobility Disciplines: Physical Therapy 11/14/2023 Active 1 goal linked to scheduled/documented intervention 1 goal intervention scheduled/documented in this visit Goals Goal Associated Problem Outcome Goal Met? Visit Notes Wound/Incision Wound Care and/or Skin Problems No Medications Assess and Instruct Home Visit No Home Care Plan Assess and Instruct Home Visit No Home Exercise Program Home Exercise Program No Mobility Mobility No Interventions Intervention Associated Problem/Goal Status Variance Visit Notes Wound/Incision Monitoring Problem:Wound Care and/or Skin Problems Goal:Wound/Incision Completed Educated patient on hand hygiene and infection control techniques, signs/symptoms of infection and when to call or report concerns to home health or provider. patient able to verbalize teach back of hand hygiene, signs/symptoms of infection and when to call or report concerns to home health or provider. Instruct Medication Management Problem:Assess and Instruct Home Visit Goal:Medications Completed Home Visit Med Education: Medication list reconciled. Medication profile and in-home medication list updated with appropriate changes. Discrepanices noted during home visit: none Instructed patient on dosing, purpose, and side effects. Medication education completed today on all medication(s). Patient/caregiver is able to teach back 100% of instruction. Falls Problem:Assess and Instruct Home Visit Goal:Home Care Plan Completed Clinician taught: patient 4-10 Patient IS at risk for falls (a score of 6 or greater is a predictor of future falls) and clinician instructed: assistive device usage, keep frequently used items in reach and emergency response system and/or keep phone on you Patient/caregiver was able to demonstrate 100% via teachback Safety Problem:Assess and Instruct Home Visit Goal:Home Care Plan Completed Assessed patient vulnerability and home safety risks: fall risk Equipment reviewed fww Patient at risk for harm or abuse no Family members involved in safety plan for Level 2 or 3 Plan for Next Visit Problem:Assess and Instruct Home Visit Goal:Home Care Plan Completed Follow up education for next visit: safety with amb Skilled intervention at next visit: Next visit with RECYCLING TECHNICIAN to continue improving strength and balance in order to maximize safety with ambulation and functional transfers. Home Exercise Program Problem:Home Exercise Program Goal:Home Exercise Program Completed Patient reports: fair compliance Clinician taught: patient Clinician instructed on: RECYCLING TECHNICIAN provides skilled instruct to perform seated therex this date including LAQ, marching, DF/PF, isometric hip adduction, and hip abduction 15x each, and consecutive STS transfer 5x in order to increase BLE strength in order to progress towards ambulation and transfer goals. Provided VC to achieve full range in order to properly engage specific muscle groups. Held on standing therex per pt request as she reports standing drops her BP and makes her feel dizzy. Patient/caregiver is able to teach back 100% of instruction. Instruct Mobility Problem:Mobility Goal:Mobility Completed Patient reports: no falls Clinician taught: patient Clinician instructed on: RECYCLING TECHNICIAN provides skilled instruct to ascend/descend 7 stairs this date with B UE assist on HR and noUE assist on AD for support with step to pattern and CGA for safety. RECYCLING TECHNICIAN provides skilled instruct to perform STS transfers requiring VC for proper hand placement to rise and lower self from surface safely and for controlled descent upon sitting to ensure safety. Patient uses BUE to rise and lower self and utilizes FWW upon standing for support with good immediate standing balance displayed - patient achieve stand on first attempt 100% of time this date. RECYCLING TECHNICIAN provides skilled instruct to ambulate with FWW with RECYCLING TECHNICIAN CGA during - provides cues/education to improve overall gait sequencing/pattern to maximize safety and decrease fall risk in order to progress independence towards STGs/LTGs. Pt unable to amb further distances at a time due to becoming light headed while up. Patient/caregiver is able to teach back 100% of instruction. [facility] Visit Details Visit Type -RECYCLING TECHNICIAN Routine Visi t Discipline -Physical Therapy Problems Problem Start Date Status Goals Interventions Wound Care and/or Skin Problems Disciplines: Physical Therapy 11/14/2023 Active 1 goal linked to scheduled/documented intervention 1 goal intervention scheduled/documented in this visit Assess and Instruct Home Visit Disciplines: Physical Therapy 11/14/2023 Active 2 goals linked to scheduled/documented interventions 4 goal interventions scheduled/documented in this visit Home Exercise Program Disciplines: Physical Therapy 11/14/2023 Active 1 goal linked to scheduled/documented intervention 1 goal intervention scheduled/documented in this visit Mobility Disciplines: Physical Therapy 11/14/2023 Active 1 goal linked to scheduled/documented intervention 1 goal intervention scheduled/documented in this visit Goals Goal Associated Problem Outcome Goal Met? Visit Notes Wound/Incision Wound Care and/or Skin Problems No Medications Assess and Instruct Home Visit No Home Care Plan Assess and Instruct Home Visit No Home Exercise Program Home Exercise Program No Mobility Mobility No Interventions Intervention Associated Problem/Goal Status Variance Visit Notes Wound/Incision Monitoring Problem:Wound Care and/or Skin Problems Goal:Wound/Incision Completed Educated patient on hand hygiene and infection control techniques, signs/symptoms of infection and when to call or report concerns to home health or provider. patient able to verbalize teach back of hand hygiene, signs/symptoms of infection and when to call or report concerns to home health or provider. Instruct Medication Management Problem:Assess and Instruct Home Visit Goal:Medications Completed Home Visit Med Education: Medication list reconciled. Medication profile and in-home medication list updated with appropriate changes. Discrepanices noted during home visit: none Instructed patient on dosing, purpose, and side effects. Medication education completed today on all medication(s). Patient/caregiver is able to teach back 100% of instruction. Falls Problem:Assess and Instruct Home Visit Goal:Home Care Plan Completed Clinician taught: patient 4-10 Patient IS at risk for falls (a score of 6 or greater is a predictor of future falls) and clinician instructed: remove clutter and throw rugs, assistive device usage, keep frequently used items in reach and emergency response system and/or keep phone on you Patient/caregiver was able to demonstrate 100% via teachback Safety Problem:Assess and Instruct Home Visit Goal:Home Care Plan Completed Assessed patient vulnerability and home safety risks: fall risk Equipment reviewed fww Patient at risk for harm or abuse no Family members involved in safety plan for Level 2 or 3 Plan for Next Visit Problem:Assess and Instruct Home Visit Goal:Home Care Plan Completed Follow up education for next visit: standing balance Skilled intervention at next visit: Next visit with RECYCLING TECHNICIAN to continue improving strength and balance in order to maximize safety with ambulation and functional transfers. Home Exercise Program Problem:Home Exercise Program Goal:Home Exercise Program Completed Patient reports: fair compliance Clinician taught: patient Clinician instructed on: RECYCLING TECHNICIAN provides skilled instruct to perform standing therex at FWW for support including marching, hip flexion, hs curls, DF/PF, and mini squats 10x each in order to increase strength in weight bearing, progress towards LTGs, and demo increased ease with ambulation. Pt required several seated rest breaks between each exericse and reports my back hurts or im lightheaded. RECYCLING TECHNICIAN attempted to encourage pt to stand for prolonged time and pt declined. Patient/caregiver is able to teach back 100% of instruction. Instruct Mobility Problem:Mobility Goal:Mobility Completed Patient reports: no falls Clinician taught: patient Clinician instructed on: RECYCLING TECHNICIAN provides skilled instruct to ascend/descend 7 stairs this date with one UE assist on HR and no UE assist on AD for support with step to pattern and SBA. RECYCLING TECHNICIAN provides skilled instruct to ambulate 30ft 2x with FWW with RECYCLING TECHNICIAN SBA during - provides cues/education to improve overall gait sequencing/pattern to maximize safety and decrease fall risk in order to progress independence towards STGs/LTGs. Pt declined to amb further distances at a time and reports my back hurts. Pt will be obtaining a SPC to trial soon. RECYCLING TECHNICIAN provides skilled instruct to perform various transfers as outlined in transfers log requiring cues for appropriate technique and sequencing to maximize safety and to facilitate improved overall independence with ADLs. Patient/caregiver is able to teach back 100% of instruction. [facility] Visit Details Visit Type -RECYCLING TECHNICIAN Routine Visi t Discipline -Physical Therapy Problems Problem Start Date Status Goals Interventions Wound Care and/or Skin Problems Disciplines: Physical Therapy 11/14/2023 Active 1 goal linked to scheduled/documented intervention 1 goal intervention scheduled/documented in this visit Assess and Instruct Home Visit Disciplines: Physical Therapy 11/14/2023 Active 2 goals linked to scheduled/documented interventions 4 goal interventions scheduled/documented in this visit Goals Goal Associated Problem Outcome Goal Met? Visit Notes Wound/Incision Wound Care and/or Skin Problems No Medications Assess and Instruct Home Visit No Home Care Plan Assess and Instruct Home Visit No Interventions Intervention Associated Problem/Goal Status Variance Visit Notes Wound/Incision Monitoring Problem:Wound Care and/or Skin Problems Goal:Wound/Incision Completed Educated patient on hand hygiene and infection control techniques, signs/symptoms of infection and when to call or report concerns to home health or provider. patient able to verbalize teach back of hand hygiene, signs/symptoms of infection and when to call or report concerns to home health or provider. Instruct Medication Management Problem:Assess and Instruct Home Visit Goal:Medications Completed Home Visit Med Education: Medication list reconciled. Medication profile and in-home medication list updated with appropriate changes. Discrepanices noted during home visit: none Instructed patient on dosing, purpose, and side effects. Medication education completed today on all medication(s). Patient/caregiver is able to teach back 100% of instruction. Falls Problem:Assess and Instruct Home Visit Goal:Home Care Plan Completed Clinician taught: patient 4-10 Patient IS at risk for falls (a score of 6 or greater is a predictor of future falls) and clinician instructed: remove clutter and throw rugs, assistive device usage, keep frequently used items in reach and emergency response system and/or keep phone on you Patient/caregiver was able to demonstrate 100% via teachback Safety Problem:Assess and Instruct Home Visit Goal:Home Care Plan Completed Assessed patient vulnerability and home safety risks: fall risk Equipment reviewed fww Patient at risk for harm or abuse no Family members involved in safety plan for Level 2 or 3 Plan for Next Visit Problem:Assess and Instruct Home Visit Goal:Home Care Plan Completed Follow up education for next visit: progress HEP Skilled intervention at next visit: Next visit with RECYCLING TECHNICIAN to continue improving strength and balance in order to maximize safety with ambulation and functional transfers. [facility] Visit Details Visit Type -RECYCLING TECHNICIAN Routine Visi t Discipline -Physical Therapy Problems Problem Start Date Status Goals Interventions Wound Care and/or Skin Problems Disciplines: Physical Therapy 11/14/2023 Active 1 goal linked to scheduled/documented intervention 1 goal intervention scheduled/documented in this visit Assess and Instruct Home Visit Disciplines: Physical Therapy 11/14/2023 Active 2 goals linked to scheduled/documented interventions 4 goal interventions scheduled/documented in this visit Home Exercise Program Disciplines: Physical Therapy 11/14/2023 Active 1 goal linked to scheduled/documented intervention 1 goal intervention scheduled/documented in this visit Mobility Disciplines: Physical Therapy 11/14/2023 Active 1 goal linked to scheduled/documented intervention 1 goal intervention scheduled/documented in this visit Goals Goal Associated Problem Outcome Goal Met? Visit Notes Wound/Incision Wound Care and/or Skin Problems No Medications Assess and Instruct Home Visit No Home Care Plan Assess and Instruct Home Visit No Home Exercise Program Home Exercise Program No Mobility Mobility No Interventions Intervention Associated Problem/Goal Status Variance Visit Notes Wound/Incision Monitoring Problem:Wound Care and/or Skin Problems Goal:Wound/Incision Completed Educated patient on hand hygiene and infection control techniques, signs/symptoms of infection and when to call or report concerns to home health or provider. patient able to verbalize teach back of hand hygiene, signs/symptoms of infection and when to call or report concerns to home health or provider. Instruct Medication Management Problem:Assess and Instruct Home Visit Goal:Medications Completed Home Visit Med Education: Medication list reconciled. Medication profile and in-home medication list updated with appropriate changes. Discrepanices noted during home visit: none Instructed patient on dosing, purpose, and side effects. Medication education completed today on all medication(s). Patient/caregiver is able to teach back 100% of instruction. Falls Problem:Assess and Instruct Home Visit Goal:Home Care Plan Completed Clinician taught: patient 4-10 Patient IS at risk for falls (a score of 6 or greater is a predictor of future falls) and clinician instructed: remove clutter and throw rugs, assistive device usage, keep frequently used items in reach and emergency response system and/or keep phone on you Patient/caregiver was able to demonstrate 100% via teachback Safety Problem:Assess and Instruct Home Visit Goal:Home Care Plan Completed Assessed patient vulnerability and home safety risks: fall risk Equipment reviewed FWW/SPC Patient at risk for harm or abuse no Family members involved in safety plan for Level 2 or 3 Plan for Next Visit Problem:Assess and Instruct Home Visit Goal:Home Care Plan Completed Follow up education for next visit: PT RA Skilled intervention at next visit: PT RA Home Exercise Program Problem:Home Exercise Program Goal:Home Exercise Program Completed Patient reports: poor compliance Clinician taught: patient Clinician instructed on: RECYCLING TECHNICIAN provided extensive education on importance of compliance with HEP and purpose of completing daily in oder to facilitate strength, balance, and endurance in order to return to PLOF. Pt verbalized fair understanding. Patient/caregiver is able to teach back 100% of instruction. Instruct Mobility Problem:Mobility Goal:Mobility Completed Patient reports: no falls Clinician taught: patient Clinician instructed on: RECYCLING TECHNICIAN provides skilled instruct to ascend/descend 7 stairs this date with one UE assist on HR and one UE assist on SPC for support with step to pattern and SBA. RECYCLING TECHNICIAN provides skilled instruct to perform various transfers as outlined in transfers log requiring cues for appropriate technique and sequencing to maximize safety and to facilitate improved overall independence with ADLs. RECYCLING TECHNICIAN provides skilled instruct to ambulate 30ft 3x with SPC with RECYCLING TECHNICIAN CGA during - provides cues/education to improve overall gait sequencing/pattern to maximize safety and decrease fall risk in order to progress independence towards STGs/LTGs. Pt refuses to amb further distances at a time and sits down between each amb bout despite encourangment. pt reports im getting dizzy because I have not taken my medication yet because i slept in. Pt was still in bed when RECYCLING TECHNICIAN arrived at 11:15am. pt required cues for proper sequencing of spc today with fair+ return. RECYCLING TECHNICIAN provides skilled instruct to perform consecutive STS transfers 7x requiring VC for proper hand placement to rise and lower self from surface safely and for controlled descent upon sitting to ensure safety. Patient uses BUE to rise and lower self and utilizes no AD upon standing for support with good immediate standing balance displayed - patient achieve stand on first attempt 100% of time this date. Pt attempted side stepping at kitchen counter approx 10ft 2x and states i need to go sit down. Patient/caregiver is able to teach back 100% of instruction. [facility] Visit Details Visit Type -SN HH Routine Vi sit Discipline -Penitentiary Problems Problem Start Date Status Goals Interventions Assess and Instruct Home Visit Disciplines: Penitentiary 11/06/2023 Active 1 goal linked to scheduled/documented intervention 4 goal interventions scheduled/documented in this visit Medication Management Disciplines: Penitentiary 11/06/2023 Active 1 goal linked to scheduled/documented intervention 1 goal intervention scheduled/documented in this visit Pain Management Disciplines: Penitentiary 11/06/2023 Active 1 goal linked to scheduled/documented intervention 1 goal intervention scheduled/documented in this visit Lab/INR Disciplines: Penitentiary 11/07/2023 Active 1 goal linked to scheduled/documented intervention 1 goal intervention scheduled/documented in this visit Goals Goal Associated Problem Outcome Goal Met? Visit Notes Home Care Plan Assess and Instruct Home Visit No Medications Medication Management No Pain Pain Management No Anticoagulation Therapy Lab/INR No Interventions Intervention Associated Problem/Goal Status Variance Visit Notes Falls Problem:Assess and Instruct Home Visit Goal:Home Care Plan Completed Clinician taught: patient 4-10 Patient IS at risk for falls (a score of 6 or greater is a predictor of future falls) and clinician instructed: proper footwear, improved lighting, remove clutter and throw rugs, non-slip mats in tubs/showers, handrails/grab bar placement, assistive device usage, keep frequently used items in reach and emergency response system and/or keep phone on you Patient was able to demonstrate 100% via teachback Safety Problem:Assess and Instruct Home Visit Goal:Home Care Plan Completed Assessed patient vulnerability and home safety risks: safety/stairs Equipment reviewed walker Patient at risk for harm or abuse: safety Family members involved in safety plan for Level 2 or 3 N/A Discharge Planning Problem:Assess and Instruct Home Visit Goal:Home Care Plan Completed Home Visit DC Planning: Spoke with patient about DC planning. Assessed for limited ambulation related to recent surgery for a AAA, poor endurance related to weakness and physician order for activity restrictions (ie, no stairs, etc.) DC will occur when: patient is able to demonstrate strength and endurance and when physician releases pt to return to work. Anticipate DC: On time Patient response to discharge planning education: verbalizes understanding. Plan for Next Visit Problem:Assess and Instruct Home Visit Goal:Home Care Plan Completed Follow up education for next visit: care for feet Skilled intervention at next visit: PT/INR, assess feet Instruct Medication Management Problem:Medication Management Goal:Medications Completed Home Visit Med Education: Medication list reconciled. Medication profile and in-home medication list updated with appropriate changes. Discrepanices noted during home visit: none Instructed patient on dosing, purpose, and side effects. Medication education completed today on coumadin medication(s). Patient is able to teach back 100% of instruction. Assess Pain Characteristics and Current Pain Regimen and Instruct Methods of Pain Relief Problem:Pain Management Goal:Pain Completed Anticoagulation Therapy Problem:Lab/INR Goal:Anticoagulation Therapy Completed September collect specimen from: Fingerstick Collection Date/Frequency: 12/13/23. Communicate results to [facility] coumadin clinic. Instruct on special precautions and when to contact the provider. If fingerstick INR is 4 or greater, perform a peripheral lab draw. documented in this encounter [facility] Plan of care note* Visit Details Visit Type -PT Reassessment Discipline -Physical Therapy Problems Problem Start Date Status Goals Interventions Wound Care and/or Skin Problems Disciplines: Physical Therapy 11/14/2023 Active 1 goal linked to scheduled/documented intervention 1 goal intervention scheduled/documented in this visit Assess and Instruct Home Visit Disciplines: Physical Therapy 11/14/2023 Active 2 goals linked to scheduled/documented interventions 4 goal interventions scheduled/documented in this visit Goals Goal Associated Problem Outcome Goal Met? Visit Notes Wound/Incision Wound Care and/or Skin Problems No Medications Assess and Instruct Home Visit No Home Care Plan Assess and Instruct Home Visit No Interventions Intervention Associated Problem/Goal Status Variance Visit Notes Wound/Incision Monitoring Problem:Wound Care and/or Skin Problems Goal:Wound/Incision Scheduled Instruct Medication Management Problem:Assess and Instruct Home Visit Goal:Medications Scheduled Falls Problem:Assess and Instruct Home Visit Goal:Home Care Plan Scheduled Safety Problem:Assess and Instruct Home Visit Goal:Home Care Plan Scheduled Plan for Next Visit Problem:Assess and Instruct Home Visit Goal:Home Care Plan Scheduled documented in this [facility] of [facility]* Visit Details Visit Type -RECYCLING TECHNICIAN Routine Visi t Discipline -Physical Therapy Problems Problem Start Date Status Goals Interventions Wound Care and/or Skin Problems Disciplines: Physical Therapy 11/14/2023 Active 1 goal linked to scheduled/documented intervention 1 goal intervention scheduled/documented in this visit Assess and Instruct Home Visit Disciplines: Physical Therapy 11/14/2023 Active 2 goals linked to scheduled/documented interventions 4 goal interventions scheduled/documented in this visit Home Exercise Program Disciplines: Physical Therapy 11/14/2023 Active 1 goal linked to scheduled/documented intervention 1 goal intervention scheduled/documented in this visit Mobility Disciplines: Physical Therapy 11/14/2023 Active 1 goal linked to scheduled/documented intervention 1 goal intervention scheduled/documented in this visit Goals Goal Associated Problem Outcome Goal Met? Visit Notes Wound/Incision Wound Care and/or Skin Problems No Medications Assess and Instruct Home Visit No Home Care Plan Assess and Instruct Home Visit No Home Exercise Program Home Exercise Program No Mobility Mobility No Interventions Intervention Associated Problem/Goal Status Variance Visit Notes Wound/Incision Monitoring Problem:Wound Care and/or Skin Problems Goal:Wound/Incision Completed Educated patient on hand hygiene and infection control techniques, signs/symptoms of infection and when to call or report concerns to home health or provider. patient able to verbalize teach back of hand hygiene, signs/symptoms of infection and when to call or report concerns to home health or provider. Instruct Medication Management Problem:Assess and Instruct Home Visit Goal:Medications Completed Home Visit Med Education: Medication list reconciled. Medication profile and in-home medication list updated with appropriate changes. Discrepanices noted during home visit: none Instructed patient on dosing, purpose, and side effects. Medication education completed today on all medication(s). Patient/caregiver is able to teach back 100% of instruction. Falls Problem:Assess and Instruct Home Visit Goal:Home Care Plan Completed Clinician taught: patient 4-10 Patient IS at risk for falls (a score of 6 or greater is a predictor of future falls) and clinician instructed: remove clutter and throw rugs, assistive device usage, keep frequently used items in reach and emergency response system and/or keep phone on you Patient/caregiver was able to demonstrate 100% via teachback Safety Problem:Assess and Instruct Home Visit Goal:Home Care Plan Completed Assessed patient vulnerability and home safety risks: fall risk Equipment reviewed FWW/SPC Patient at risk for harm or abuse no Family members involved in safety plan for Level 2 or 3 Plan for Next Visit Problem:Assess and Instruct Home Visit Goal:Home Care Plan Completed Follow up education for next visit: PT RA Skilled intervention at next visit: PT RA Home Exercise Program Problem:Home Exercise Program Goal:Home Exercise Program Completed Patient reports: poor compliance Clinician taught: patient Clinician instructed on: RECYCLING TECHNICIAN provided extensive education on importance of compliance with HEP and purpose of completing daily in oder to facilitate strength, balance, and endurance in order to return to PLOF. Pt verbalized fair understanding. Patient/caregiver is able to teach back 100% of instruction. Instruct Mobility Problem:Mobility Goal:Mobility Completed Patient reports: no falls Clinician taught: patient Clinician instructed on: RECYCLING TECHNICIAN provides skilled instruct to ascend/descend 7 stairs this date with one UE assist on HR and one UE assist on SPC for support with step to pattern and SBA. RECYCLING TECHNICIAN provides skilled instruct to perform various transfers as outlined in transfers log requiring cues for appropriate technique and sequencing to maximize safety and to facilitate improved overall independence with ADLs. RECYCLING TECHNICIAN provides skilled instruct to ambulate 30ft 3x with SPC with RECYCLING TECHNICIAN CGA during - provides cues/education to improve overall gait sequencing/pattern to maximize safety and decrease fall risk in order to progress independence towards STGs/LTGs. Pt refuses to amb further distances at a time and sits down between each amb bout despite encourangment. pt reports im getting dizzy because I have not taken my medication yet because i slept in. Pt was still in bed when RECYCLING TECHNICIAN arrived at 11:15am. pt required cues for proper sequencing of spc today with fair+ return. RECYCLING TECHNICIAN provides skilled instruct to perform consecutive STS transfers 7x requiring VC for proper hand placement to rise and lower self from surface safely and for controlled descent upon sitting to ensure safety. Patient uses BUE to rise and lower self and utilizes no AD upon standing for support with good immediate standing balance displayed - patient achieve stand on first attempt 100% of time this date. Pt attempted side stepping at kitchen counter approx 10ft 2x and states i need to go sit down. Patient/caregiver is able to teach back 100% of instruction. [facility] Visit Details Visit Type -SN HH Routine Vi sit Discipline -Penitentiary Problems Problem Start Date Status Goals Interventions Assess and Instruct Home Visit Disciplines: Penitentiary 11/06/2023 Active 1 goal linked to scheduled/documented intervention 4 goal interventions scheduled/documented in this visit Medication Management Disciplines: Penitentiary 11/06/2023 Active 1 goal linked to scheduled/documented intervention 1 goal intervention scheduled/documented in this visit Pain Management Disciplines: Penitentiary 11/06/2023 Active 1 goal linked to scheduled/documented intervention 1 goal intervention scheduled/documented in this visit Lab/INR Disciplines: Penitentiary 11/07/2023 Active 1 goal linked to scheduled/documented intervention 1 goal intervention scheduled/documented in this visit Cardiac Disciplines: Penitentiary 11/14/2023 Active 1 goal linked to scheduled/documented intervention 1 goal intervention scheduled/documented in this visit Goals Goal Associated Problem Outcome Goal Met? Visit Notes Home Care Plan Assess and Instruct Home Visit No Medications Medication Management No Pain Pain Management No Anticoagulation Therapy Lab/INR No Cardiac Function Cardiac No Interventions Intervention Associated Problem/Goal Status Variance Visit Notes Falls Problem:Assess and Instruct Home Visit Goal:Home Care Plan Completed Clinician taught: patient 4-10 Patient IS at risk for falls (a score of 6 or greater is a predictor of future falls) and clinician instructed: proper footwear, improved lighting, remove clutter and throw rugs, non-slip mats in tubs/showers, handrails/grab bar placement, assistive device usage, keep frequently used items in reach and emergency response system and/or keep phone on you. Patient/caregiver was able to demonstrate 100% via teachback Safety Problem:Assess and Instruct Home Visit Goal:Home Care Plan Completed Assessed patient vulnerability and home safety risks: SAFETY Equipment reviewed ROLLATOR Patient at risk for harm or abuse SAFETY Family members involved in safety plan for Level 2 or 3 N/A Discharge Planning Problem:Assess and Instruct Home Visit Goal:Home Care Plan Completed Home Visit DC Planning: Spoke with patient and caregiver about DC planning. Assessed for limited ambulation related to AAA surgery, unsteady gait/poor balance, unstable BP, poor endurance related to muscle weakness and physician order for activity restrictions (ie, no stairs, etc.) DC will occur when: patient/caregiver is able to demonstrate safe ambulation, stable INR's, teachback of medications. Anticipate DC: On time Patient and/or caregiver response to discharge planning education: verbalizes understanding. Plan for Next Visit Problem:Assess and Instruct Home Visit Goal:Home Care Plan Completed Follow up education for next visit: COUMADIN DOSING Skilled intervention at next visit: WOUND CARE/INR CHECK Instruct Medication Management Problem:Medication Management Goal:Medications Completed Home Visit Med Education: Medication list reconciled. Medication profile and in-home medication list updated with appropriate changes. Discrepanices noted during home visit: none Instructed patient on dosing, purpose, and side effects. Medication education completed today on ALL medication(s). Patient is able to teach back 100% of instruction. Assess Pain Characteristics and Current Pain Regimen and Instruct Methods of Pain Relief Problem:Pain Management Goal:Pain Completed Assess pain characteristics, effectiveness of current pain regimen and patient's ability to manage functional activities. Instruct in pharmacological and non-pharmacological techniques to relieve pain Anticoagulation Therapy Problem:Lab/INR Goal:Anticoagulatio n Therapy Completed Patient INR result: 4.1 via Finger Stick New dosing orders from clinic/provider: 2.5mg M/W/F AND 5mg on all other days. Date for next INR: 12/20/23 Follow up to patient/family: Patient present for new orders Verbal order for next INR draw and new dosing instructions sent to provider for signature? Yes Instruct Impaired Cardiac Function Problem:Cardiac Goal:Cardiac Function Completed Patient reports: no issues Clinician taught: patient Clinician instructed on: daily monitoring of bp's Patient/caregiver is able to teach back 100% of instruction. [facility] Visit Details Visit Type -RECYCLING TECHNICIAN Routine Visi t Discipline -Physical Therapy Problems Problem Start Date Status Goals Interventions Wound Care and/or Skin Problems Disciplines: Physical Therapy 11/14/2023 Active 1 goal linked to scheduled/documented intervention 1 goal intervention scheduled/documented in this visit Assess and Instruct Home Visit Disciplines: Physical Therapy 11/14/2023 Active 2 goals linked to scheduled/documented interventions 4 goal interventions scheduled/documented in this visit Home Exercise Program Disciplines: Physical Therapy 11/14/2023 Active 1 goal linked to scheduled/documented intervention 1 goal intervention scheduled/documented in this visit Mobility Disciplines: Physical Therapy 11/14/2023 Active 1 goal linked to scheduled/documented intervention 1 goal intervention scheduled/documented in this visit Goals Goal Associated Problem Outcome Goal Met? Visit Notes Wound/Incision Wound Care and/or Skin Problems No Medications Assess and Instruct Home Visit No Home Care Plan Assess and Instruct Home Visit No Home Exercise Program Home Exercise Program No Mobility Mobility No Interventions Intervention Associated Problem/Goal Status Variance Visit Notes Wound/Incision Monitoring Problem:Wound Care and/or Skin Problems Goal:Wound/Incision Completed Educated patient on hand hygiene and infection control techniques, signs/symptoms of infection and when to call or report concerns to home health or provider. patient able to verbalize teach back of hand hygiene, signs/symptoms of infection and when to call or report concerns to home health or provider. Instruct Medication Management Problem:Assess and Instruct Home Visit Goal:Medications Completed Home Visit Med Education: Medication list reconciled. Medication profile and in-home medication list updated with appropriate changes. Discrepanices noted during home visit: none Instructed patient on dosing, purpose, and side effects. Medication education completed today on all medication(s). Patient/caregiver is able to teach back 100% of instruction. Falls Problem:Assess and Instruct Home Visit Goal:Home Care Plan Completed Clinician taught: patient 4-10 Patient IS at risk for falls (a score of 6 or greater is a predictor of future falls) and clinician instructed: remove clutter and throw rugs, assistive device usage, keep frequently used items in reach and emergency response system and/or keep phone on you Patient/caregiver was able to demonstrate 100% via teachback Safety Problem:Assess and Instruct Home Visit Goal:Home Care Plan Completed Assessed patient vulnerability and home safety risks: fall risk Equipment reviewed SPC Patient at risk for harm or abuse no Family members involved in safety plan for Level 2 or 3 Plan for Next Visit Problem:Assess and Instruct Home Visit Goal:Home Care Plan Completed Follow up education for next visit: improve edurance Skilled intervention at next visit: Next visit with RECYCLING TECHNICIAN to continue improving strength and balance in order to maximize safety with ambulation and functional transfers. Home Exercise Program Problem:Home Exercise Program Goal:Home Exercise Program Completed Patient reports: poor compliance with HEP Clinician taught: patient Clinician instructed on: RECYCLING TECHNICIAN provides skilled instruct to peform various balance activities such as step ups 5x, lateral/anterior/poste rior stepping with one UE support intermittently, and high knee marching 10xea in order to improve static and dynamic standing balance and progress safety and independence with ADLs/IADLs as well as progress towards LTGs. Pt required SBA to complete balance activites and required one seated rest break due to BLE weakness. Patient/caregiver is able to teach back 100% of instruction. Instruct Mobility Problem:Mobility Goal:Mobility Completed Patient reports: no falls-has been amb some w/o AD. Clinician taught: patient Clinician instructed on: RECYCLING TECHNICIAN provides skilled instruct to ambulate 110ft with no AD with RECYCLING TECHNICIAN CGA-SBA during - provides cues/education to improve overall gait sequencing/pattern to maximize safety and decrease fall risk in order to progress independence towards STGs/LTGs. RECYCLING TECHNICIAN provides skilled instruct to perform consecutive STS transfers 10x requiring VC for proper hand placement to rise and lower self from surface safely and for controlled descent upon sitting to ensure safety. Patient uses BUE to rise and lower self and utilizes no AD upon standing for support with good immediate standing balance displayed - patient achieve stand on first attempt 100% of time this date. Patient/caregiver is able to teach back 100% of instruction. [facility] Visit Details Visit Type -RECYCLING TECHNICIAN Routine Visi t Discipline -Physical Therapy Problems Problem Start Date Status Goals Interventions Wound Care and/or Skin Problems Disciplines: Physical Therapy 11/14/2023 Active 1 goal linked to scheduled/documented intervention 1 goal intervention scheduled/documented in this visit Assess and Instruct Home Visit Disciplines: Physical Therapy 11/14/2023 Active 2 goals linked to scheduled/documented interventions 4 goal interventions scheduled/documented in this visit Home Exercise Program Disciplines: Physical Therapy 11/14/2023 Active 1 goal linked to scheduled/documented intervention 1 goal intervention scheduled/documented in this visit Mobility Disciplines: Physical Therapy 11/14/2023 Active 1 goal linked to scheduled/documented intervention 1 goal intervention scheduled/documented in this visit Goals Goal Associated Problem Outcome Goal Met? Visit Notes Wound/Incision Wound Care and/or Skin Problems No Medications Assess and Instruct Home Visit No Home Care Plan Assess and Instruct Home Visit No Home Exercise Program Home Exercise Program No Mobility Mobility No Interventions Intervention Associated Problem/Goal Status Variance Visit Notes Wound/Incision Monitoring Problem:Wound Care and/or Skin Problems Goal:Wound/Incision Completed Educated patient on hand hygiene and infection control techniques, signs/symptoms of infection and when to call or report concerns to home health or provider. patient able to verbalize teach back of hand hygiene, signs/symptoms of infection and when to call or report concerns to home health or provider. Instruct Medication Management Problem:Assess and Instruct Home Visit Goal:Medications Completed Home Visit Med Education: Medication list reconciled. Medication profile and in-home medication list updated with appropriate changes. Discrepanices noted during home visit: none Instructed patient on dosing, purpose, and side effects. Medication education completed today on all medication(s). Patient/caregiver is able to teach back 100% of instruction. Falls Problem:Assess and Instruct Home Visit Goal:Home Care Plan Completed Clinician taught: patient 4-10 Patient IS at risk for falls (a score of 6 or greater is a predictor of future falls) and clinician instructed: remove clutter and throw rugs, assistive device usage, keep frequently used items in reach and emergency response system and/or keep phone on you Patient/caregiver was able to demonstrate 100% via teachback Safety Problem:Assess and Instruct Home Visit Goal:Home Care Plan Completed Assessed patient vulnerability and home safety risks: fall risk Equipment reviewed SPC Patient at risk for harm or abuse no Family members involved in safety plan for Level 2 or 3 Plan for Next Visit Problem:Assess and Instruct Home Visit Goal:Home Care Plan Completed Follow up education for next visit: standing balance Skilled intervention at next visit: Next visit with RECYCLING TECHNICIAN to continue improving strength and balance in order to maximize safety with ambulation and functional transfers. Home Exercise Program Problem:Home Exercise Program Goal:Home Exercise Program Completed Patient reports: poor compliance Clinician taught: patient Clinician instructed on: RECYCLING TECHNICIAN provides skilled instruct to perform standing therex at kitchen sink for support including marching, hip abduction, hs curls, DF/PF, and mini squats 10x each in order to increase strength in weight bearing, progress towards LTGs, and demo increased ease with ambulation. Pt required two seated rest breaks due to BLE weakness and fatigue. Patient/caregiver is able to teach back 100% of instruction. Instruct Mobility Problem:Mobility Goal:Mobility Completed Patient reports: no falls Clinician taught: patient Clinician instructed on: RECYCLING TECHNICIAN provides skilled instruct to perform various transfers as outlined in transfers log requiring cues for appropriate technique and sequencing to maximize safety and to facilitate improved overall independence with ADLs. RECYCLING TECHNICIAN provides skilled instruct to ascend/descend 6 stairs this date with one UE assist on HR and no UE assist on AD for support with alternating pattern and SBA. RECYCLING TECHNICIAN provides skilled instruct to ambulate with no AD with RECYCLING TECHNICIAN SBA during - provides cues/education to improve overall gait sequencing/pattern to maximize safety and decrease fall risk in order to progress independence towards STGs/LTGs. Pt unable to amb further distances today and reports I can feel it in my legs their getting tired. Patient/caregiver is able to teach back 100% of instruction. [facility] Visit Details Visit Type -RECYCLING TECHNICIAN Routine Visi t Discipline -Physical Therapy Problems Problem Start Date Status Goals Interventions Wound Care and/or Skin Problems Disciplines: Physical Therapy 11/14/2023 Active 1 goal linked to scheduled/documented intervention 1 goal intervention scheduled/documented in this visit Assess and Instruct Home Visit Disciplines: Physical Therapy 11/14/2023 Active 2 goals linked to scheduled/documented interventions 4 goal interventions scheduled/documented in this visit Home Exercise Program Disciplines: Physical Therapy 11/14/2023 Active 1 goal linked to scheduled/documented intervention 1 goal intervention scheduled/documented in this visit Mobility Disciplines: Physical Therapy 11/14/2023 Active 1 goal linked to scheduled/documented intervention 1 goal intervention scheduled/documented in this visit Goals Goal Associated Problem Outcome Goal Met? Visit Notes Wound/Incision Wound Care and/or Skin Problems No Medications Assess and Instruct Home Visit No Home Care Plan Assess and Instruct Home Visit No Home Exercise Program Home Exercise Program No Mobility Mobility No Interventions Intervention Associated Problem/Goal Status Variance Visit Notes Wound/Incision Monitoring Problem:Wound Care and/or Skin Problems Goal:Wound/Incision Completed Educated patient on hand hygiene and infection control techniques, signs/symptoms of infection and when to call or report concerns to home health or provider. patient able to verbalize teach back of hand hygiene, signs/symptoms of infection and when to call or report concerns to home health or provider. Instruct Medication Management Problem:Assess and Instruct Home Visit Goal:Medications Completed Home Visit Med Education: Medication list reconciled. Medication profile and in-home medication list updated with appropriate changes. Discrepanices noted during home visit: none Instructed patient on dosing, purpose, and side effects. Medication education completed today on all medication(s). Patient/caregiver is able to teach back 100% of instruction. Falls Problem:Assess and Instruct Home Visit Goal:Home Care Plan Completed Clinician taught: patient 4-10 Patient IS at risk for falls (a score of 6 or greater is a predictor of future falls) and clinician instructed: remove clutter and throw rugs, assistive device usage, keep frequently used items in reach and emergency response system and/or keep phone on you Patient/caregiver was able to demonstrate 100% via teachback Safety Problem:Assess and Instruct Home Visit Goal:Home Care Plan Completed Assessed patient vulnerability and home safety risks: fall risk Equipment reviewed spc Patient at risk for harm or abuse no Family members involved in safety plan for Level 2 or 3 Plan for Next Visit Problem:Assess and Instruct Home Visit Goal:Home Care Plan Completed Follow up education for next visit: improve mobility Skilled intervention at next visit: Next visit with RECYCLING TECHNICIAN to continue improving strength and balance in order to maximize safety with ambulation and functional transfers. Home Exercise Program Problem:Home Exercise Program Goal:Home Exercise Program Completed Patient reports: poor compliance Clinician taught: patient Clinician instructed on: RECYCLING TECHNICIAN reviews HEP with patient. Patient demos good recall with technique and reports poor compliance with exercise program. Education provided on importance of performing HEP daily to facilitate strength and balance to return to PLOF. Patient/caregiver is able to teach back 100% of instruction. Instruct Mobility Problem:Mobility Goal:Mobility Completed Patient reports: no falls Clinician taught: patient Clinician instructed on: RECYCLING TECHNICIAN provides skilled instruct to ambulate with no AD with RECYCLING TECHNICIAN SBA during - provides cues/education to improve overall gait sequencing/pattern to maximize safety and decrease fall risk in order to progress independence towards STGs/LTGs. Pt required cues for increased step length/height. RECYCLING TECHNICIAN provides skilled instruct to perform consecutive STS transfers 10x requiring VC for proper hand placement to rise and lower self from surface safely and for controlled descent upon sitting to ensure safety. Patient uses BUE to rise and lower self and utilizes no AD upon standing for support with good immediate standing balance displayed - patient achieve stand on first attempt 100% of time this date with SBA. RECYCLING TECHNICIAN provides skilled instruct to peform various balance activities in order to improve static and dynamic standing balance and progress safety and independence with ADLs/IADLs as well as progress towards LTGs. Pt completed step ups 7x with one UE support on rail, and standing marching, HS curls, and hip abd 10xea at kitchen sink. Pt required SBA and cues to complete with pt requiring several seated rest breaks as she reports my legs feel weak. Patient/caregiver is able to teach back 100% of instruction. 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 Routine Discipline -Penitentiary Problems Problem Start Date Status Goals Interventions Assess and Instruct Home Visit Disciplines: Penitentiary 11/06/2023 Active 1 goal linked to scheduled/documented intervention 4 goal interventions scheduled/documented in this visit Medication Management Disciplines: Penitentiary 11/06/2023 Active 1 goal linked to scheduled/documented intervention 1 goal intervention scheduled/documented in this visit Pain Management Disciplines: Penitentiary 11/06/2023 Active 1 goal linked to scheduled/documented intervention 1 goal intervention scheduled/documented in this visit Goals Goal Associated Problem Outcome Goal Met? Visit Notes Home Care Plan Assess and Instruct Home Visit No Medications Medication Management No Pain Pain Management No Interventions Intervention Associated Problem/Goal Status Variance Visit Notes Falls Problem:Assess and Instruct Home Visit Goal:Home Care Plan Completed No falls reported. Safety Problem:Assess and Instruct Home Visit Goal:Home Care Plan Completed Low safety risk. Discharge Planning Problem:Assess and Instruct Home Visit Goal:Home Care Plan Completed Patient not being discharged at this time. Plan for Next Visit Problem:Assess and Instruct Home Visit Goal:Home Care Plan Completed Monitor VS and wounds to toes. Patient aware of next viist. Instruct Medication Management Problem:Medication Management Goal:Medications Completed Patient taking medications as prescribed. Assess Pain Characteristics and Current Pain Regimen and Instruct Methods of Pain Relief Problem:Pain Management Goal:Pain Completed [facility] Visit Details Visit Type -RECYCLING TECHNICIAN Routine Visi t Discipline -Physical Therapy Problems Problem Start Date Status Goals Interventions Wound Care and/or Skin Problems Disciplines: Physical Therapy 11/14/2023 Active 1 goal linked to scheduled/documented intervention 1 goal intervention scheduled/documented in this visit Assess and Instruct Home Visit Disciplines: Physical Therapy 11/14/2023 Active 2 goals linked to scheduled/documented interventions 4 goal interventions scheduled/documented in this visit Home Exercise Program Disciplines: Physical Therapy 11/14/2023 Active 1 goal linked to scheduled/documented intervention 1 goal intervention scheduled/documented in this visit Mobility Disciplines: Physical Therapy 11/14/2023 Active 1 goal linked to scheduled/documented intervention 1 goal intervention scheduled/documented in this visit Goals Goal Associated Problem Outcome Goal Met? Visit Notes Wound/Incision Wound Care and/or Skin Problems No Medications Assess and Instruct Home Visit No Home Care Plan Assess and Instruct Home Visit No Home Exercise Program Home Exercise Program No Mobility Mobility No Interventions Intervention Associated Problem/Goal Status Variance Visit Notes Wound/Incision Monitoring Problem:Wound Care and/or Skin Problems Goal:Wound/Incision Completed Educated patient on hand hygiene and infection control techniques, signs/symptoms of infection and when to call or report concerns to home health or provider. patient able to verbalize teach back of hand hygiene, signs/symptoms of infection and when to call or report concerns to home health or provider. Instruct Medication Management Problem:Assess and Instruct Home Visit Goal:Medications Completed Home Visit Med Education: Medication list reconciled. Medication profile and in-home medication list updated with appropriate changes. Discrepanices noted during home visit: none Instructed patient on dosing, purpose, and side effects. Medication education completed today on all medication(s). Patient/caregiver is able to teach back 100% of instruction. Falls Problem:Assess and Instruct Home Visit Goal:Home Care Plan Completed Clinician taught: patient 4-10 Patient IS at risk for falls (a score of 6 or greater is a predictor of future falls) and clinician instructed: remove clutter and throw rugs, assistive device usage, keep frequently used items in reach and emergency response system and/or keep phone on you Patient/caregiver was able to demonstrate 100% via teachback Safety Problem:Assess and Instruct Home Visit Goal:Home Care Plan Completed Assessed patient vulnerability and home safety risks: fall risk Equipment reviewed none Patient at risk for harm or abuse no Family members involved in safety plan for Level 2 or 3 Plan for Next Visit Problem:Assess and Instruct Home Visit Goal:Home Care Plan Completed Follow up education for next visit: standing balance Skilled intervention at next visit: Next visit with RECYCLING TECHNICIAN to continue improving strength and balance in order to maximize safety with ambulation and functional transfers. Home Exercise Program Problem:Home Exercise Program Goal:Home Exercise Program Completed Patient reports: poor compliance Clinician taught: patient Clinician instructed on: RECYCLING TECHNICIAN provides skilled instruct to peform various balance activities in order to improve static and dynamic standing balance and progress safety and independence with ADLs/IADLs as well as progress towards LTGs. Pt completed high knee marching at kitchen counter, step ups 7x, and lateral/anterior/poste rior stepping with one UE support intermittently. Pt required frequent seated rest break s throughout due to increased fatigue and BLE weakness. Patient/caregiver is able to teach back 100% of instruction. Instruct Mobility Problem:Mobility Goal:Mobility Completed Patient reports: no falls Clinician taught: patient Clinician instructed on: RECYCLING TECHNICIAN provides skilled instruct to perform consecutive STS transfers 10x requiring VC for proper hand placement to rise and lower self from surface safely and for controlled descent upon sitting to ensure safety. Patient uses BUE to rise and lower self and utilizes no AD upon standing for support with good immediate standing balance displayed - patient achieve stand on first attempt 100% of time this date. RECYCLING TECHNICIAN provides skilled instruct to ascend/descend 7 stairs this date with one UE assist on HR and no UE assist on AD for support with step to pattern and S. RECYCLING TECHNICIAN provides skilled instruct to ambulate with no AD with RECYCLING TECHNICIAN SBA during - provides cues/education to improve overall gait sequencing/pattern to maximize safety and decrease fall risk in order to progress independence towards STGs/LTGs. Patient/caregiver is able to teach back 100% of instruction. [facility] Visit Details Visit Type -RECYCLING TECHNICIAN Routine Visi t Discipline -Physical Therapy Problems Problem Start Date Status Goals Interventions Wound Care and/or Skin Problems Disciplines: Physical Therapy 11/14/2023 Active 1 goal linked to scheduled/documented intervention 1 goal intervention scheduled/documented in this visit Assess and Instruct Home Visit Disciplines: Physical Therapy 11/14/2023 Active 2 goals linked to scheduled/documented interventions 4 goal interventions scheduled/documented in this visit Home Exercise Program Disciplines: Physical Therapy 11/14/2023 Active 1 goal linked to scheduled/documented intervention 1 goal intervention scheduled/documented in this visit Disease-Specific Rehabilitation Disciplines: Physical Therapy 11/14/2023 Active 1 goal linked to scheduled/documented intervention 1 goal intervention scheduled/documented in this visit Mobility Disciplines: Physical Therapy 11/14/2023 Active 1 goal linked to scheduled/documented intervention 1 goal intervention scheduled/documented in this visit Goals Goal Associated Problem Outcome Goal Met? Visit Notes Wound/Incision Wound Care and/or Skin Problems No Medications Assess and Instruct Home Visit No Home Care Plan Assess and Instruct Home Visit No Home Exercise Program Home Exercise Program No Post-Surgical Disease-Specific Rehabilitation No Mobility Mobility No Interventions Intervention Associated Problem/Goal Status Variance Visit Notes Wound/Incision Monitoring Problem:Wound Care and/or Skin Problems Goal:Wound/Incision Completed Educated patient on hand hygiene and infection control techniques, signs/symptoms of infection and when to call or report concerns to home health or provider. patient able to verbalize teach back of hand hygiene, signs/symptoms of infection and when to call or report concerns to home health or provider. Instruct Medication Management Problem:Assess and Instruct Home Visit Goal:Medications Completed Home Visit Med Education: Medication list reconciled. Medication profile and in-home medication list updated with appropriate changes. Discrepanices noted during home visit: none Instructed patient on dosing, purpose, and side effects. Medication education completed today on proper medication(s). Patient/caregiver is able to teach back 90% of instruction. Falls Problem:Assess and Instruct Home Visit Goal:Home Care Plan Completed Clinician taught: patient 4-10 Patient IS at risk for falls (a score of 6 or greater is a predictor of future falls) and clinician instructed: proper footwear, improved lighting, remove clutter and throw rugs and assistive device usage Patient/caregiver was able to demonstrate 90% via teachback Safety Problem:Assess and Instruct Home Visit Goal:Home Care Plan Completed Assessed patient vulnerability and home safety risks: yes Equipment reviewed yes Patient at risk for harm or abuse no Family members involved in safety plan for Level 2 or 3 yes Plan for Next Visit Problem:Assess and Instruct Home Visit Goal:Home Care Plan Completed Follow up education for next visit: HEP compliance Skilled intervention at next visit: PT RA Home Exercise Program Problem:Home Exercise Program Goal:Home Exercise Program Completed Patient reports: compliance with HEP Clinician taught: patient Clinician instructed on: verbally reviewed HEP with good dunerstanding noted Patient/caregiver is able to teach back 90% of instruction. Instruct Post-op Care Problem:Disease-Spec [facility] Rehabilitation Goal:Post-Surgical Task already performed Instruct Mobility Problem:Mobility Goal:Mobility Completed Patient reports: ADLS with no AD Clinician taught: patient Clinician instructed on: RECYCLING TECHNICIAN provides skilled instructions to ambulate short functional distances in home of 3 minute bout with no AD. Pt demo slow pacing with decreased step height and stride length with RECYCLING TECHNICIAN providing CG/SBA during for safety. Verbal cues to improve posture, step height and stride length with 80% recall of proper energy conservation techniques such as posture, breathing and slowing pace. Fatigue reported after with some SOB and vitals WNL, noted RECYCLING TECHNICIAN attempted extending time bout to improve endurance however patient refused stating she needed sitting rest break. RECYCLING TECHNICIAN provided instructions for patient to ascend and descend 7 steps this date with 1 UE support on HR and 1 UE support on grab bar for support with step to pattern. Able to complete with step to pattern and SBA, some difficulty ascending d/t deconditioning an BLE weakness. Step navigation completed to improve functional mobility and decrease risk of falls. Gait training performed to improve patient's functional mobility and stability with ADLs. Patient/caregiver is able to teach back 80% of instruction. [facility] Visit Details Visit Type -PT Non-[place] Age ncy Discharge Discipline -Physical Therapy Problems Problem Start Date Status Goals Interventions Wound Care and/or Skin Problems Disciplines: Physical Therapy 11/14/2023 Resolved on 12/27/2023 1 goal linked to scheduled/documented intervention 1 goal intervention scheduled/documented in this visit Assess and Instruct Home Visit Disciplines: Physical Therapy 11/14/2023 Resolved on 12/27/2023 2 goals linked to scheduled/documented interventions 4 goal interventions scheduled/documented in this visit Goals Goal Associated Problem Outcome Goal Met? Visit Notes Wound/Incision Wound Care and/or Skin Problems No Medications Assess and Instruct Home Visit No Home Care Plan Assess and Instruct Home Visit No Interventions Intervention Associated Problem/Goal Status Variance Visit Notes Wound/Incision Monitoring Problem:Wound Care and/or Skin Problems Goal:Wound/Incision Completed PT to d/c at this time, PT goals achieved, patient present and agree to PT d/c. Education provided for continued HEP, fall prevention, DME use and future procurement of services prn. Patient starts work next Monday. Cleared to work by PCP. PT INR clinic next Monday. Unable to upload pictures of wounds. Instruct Medication Management Problem:Assess and Instruct Home Visit Goal:Medications Scheduled Plan for Next Visit Problem:Assess and Instruct Home Visit Goal:Home Care Plan Completed PT to d/c at this time, PT goals achieved, patient present and agree to PT d/c. Education provided for continued HEP, fall prevention, DME use and future procurement of services prn. Patient starts work next Monday. Cleared to work by PCP. PT INR clinic next Monday. Unable to upload pictures of wounds. Falls Problem:Assess and Instruct Home Visit Goal:Home Care Plan Scheduled Safety Problem:Assess and Instruct Home Visit Goal:Home Care Plan Scheduled [facility] Visit Details Visit Type -RECYCLING TECHNICIAN Routine Visi t Discipline -Physical Therapy Problems Problem Start Date Status Goals Interventions Wound Care and/or Skin Problems Disciplines: Physical Therapy 11/14/2023 Active 1 goal linked to scheduled/documented intervention 1 goal intervention scheduled/documented in this visit Assess and Instruct Home Visit Disciplines: Physical Therapy 11/14/2023 Active 2 goals linked to scheduled/documented interventions 4 goal interventions scheduled/documented in this visit Home Exercise Program Disciplines: Physical Therapy 11/14/2023 Active 1 goal linked to scheduled/documented intervention 1 goal intervention scheduled/documented in this visit Disease-Specific Rehabilitation Disciplines: Physical Therapy 11/14/2023 Active 1 goal linked to scheduled/documented intervention 1 goal intervention scheduled/documented in this visit Mobility Disciplines: Physical Therapy 11/14/2023 Active 1 goal linked to scheduled/documented intervention 1 goal intervention scheduled/documented in this visit Goals Goal Associated Problem Outcome Goal Met? Visit Notes Wound/Incision Wound Care and/or Skin Problems No Medications Assess and Instruct Home Visit No Home Care Plan Assess and Instruct Home Visit No Home Exercise Program Home Exercise Program No Post-Surgical Disease-Specific Rehabilitation No Mobility Mobility No Interventions Intervention Associated Problem/Goal Status Variance Visit Notes Wound/Incision Monitoring Problem:Wound Care and/or Skin Problems Goal:Wound/Incision Completed Educated patient on hand hygiene and infection control techniques, signs/symptoms of infection and when to call or report concerns to home health or provider. patient able to verbalize teach back of hand hygiene, signs/symptoms of infection and when to call or report concerns to home health or provider. Instruct Medication Management Problem:Assess and Instruct Home Visit Goal:Medications Completed Home Visit Med Education: Medication list reconciled. Medication profile and in-home medication list updated with appropriate changes. Discrepanices noted during home visit: none Instructed patient on dosing, purpose, and side effects. Medication education completed today on proper medication(s). Patient/caregiver is able to teach back 90% of instruction. Falls Problem:Assess and Instruct Home Visit Goal:Home Care Plan Completed Clinician taught: patient 4-10 Patient IS at risk for falls (a score of 6 or greater is a predictor of future falls) and clinician instructed: proper footwear, improved lighting, remove clutter and throw rugs and assistive device usage Patient/caregiver was able to demonstrate 90% via teachback Safety Problem:Assess and Instruct Home Visit Goal:Home Care Plan Completed Assessed patient vulnerability and home safety risks: yes Equipment reviewed yes Patient at risk for harm or abuse no Family members involved in safety plan for Level 2 or 3 yes Plan for Next Visit Problem:Assess and Instruct Home Visit Goal:Home Care Plan Completed Follow up education for next visit: HEP compliance Skilled intervention at next visit: PT RA Home Exercise Program Problem:Home Exercise Program Goal:Home Exercise Program Completed Patient reports: compliance with HEP Clinician taught: patient Clinician instructed on: verbally reviewed HEP with good dunerstanding noted Patient/caregiver is able to teach back 90% of instruction. Instruct Post-op Care Problem:Disease-Spec [facility] Rehabilitation Goal:Post-Surgical Task already performed Instruct Mobility Problem:Mobility Goal:Mobility Completed Patient reports: ADLS with no AD Clinician taught: patient Clinician instructed on: RECYCLING TECHNICIAN provides skilled instructions to ambulate short functional distances in home of 3 minute bout with no AD. Pt demo slow pacing with decreased step height and stride length with RECYCLING TECHNICIAN providing CG/SBA during for safety. Verbal cues to improve posture, step height and stride length with 80% recall of proper energy conservation techniques such as posture, breathing and slowing pace. Fatigue reported after with some SOB and vitals WNL, noted RECYCLING TECHNICIAN attempted extending time bout to improve endurance however patient refused stating she needed sitting rest break. RECYCLING TECHNICIAN provided instructions for patient to ascend and descend 7 steps this date with 1 UE support on HR and 1 UE support on grab bar for support with step to pattern. Able to complete with step to pattern and SBA, some difficulty ascending d/t deconditioning an BLE weakness. Step navigation completed to improve functional mobility and decrease risk of falls. Gait training performed to improve patient's functional mobility and stability with ADLs. Patient/caregiver is able to teach back 80% of instruction. [facility] Visit Details Visit Type -RECYCLING TECHNICIAN Routine Visi t Discipline -Physical Therapy Problems Problem Start Date Status Goals Interventions Wound Care and/or Skin Problems Disciplines: Physical Therapy 11/14/2023 Active 1 goal linked to scheduled/documented intervention 1 goal intervention scheduled/documented in this visit Assess and Instruct Home Visit Disciplines: Physical Therapy 11/14/2023 Active 2 goals linked to scheduled/documented interventions 4 goal interventions scheduled/documented in this visit Home Exercise Program Disciplines: Physical Therapy 11/14/2023 Active 1 goal linked to scheduled/documented intervention 1 goal intervention scheduled/documented in this visit Mobility Disciplines: Physical Therapy 11/14/2023 Active 1 goal linked to scheduled/documented intervention 1 goal intervention scheduled/documented in this visit Goals Goal Associated Problem Outcome Goal Met? Visit Notes Wound/Incision Wound Care and/or Skin Problems No Medications Assess and Instruct Home Visit No Home Care Plan Assess and Instruct Home Visit No Home Exercise Program Home Exercise Program No Mobility Mobility No Interventions Intervention Associated Problem/Goal Status Variance Visit Notes Wound/Incision Monitoring Problem:Wound Care and/or Skin Problems Goal:Wound/Incision Completed Educated patient on hand hygiene and infection control techniques, signs/symptoms of infection and when to call or report concerns to home health or provider. patient able to verbalize teach back of hand hygiene, signs/symptoms of infection and when to call or report concerns to home health or provider. Instruct Medication Management Problem:Assess and Instruct Home Visit Goal:Medications Completed Home Visit Med Education: Medication list reconciled. Medication profile and in-home medication list updated with appropriate changes. Discrepanices noted during home visit: none Instructed patient on dosing, purpose, and side effects. Medication education completed today on all medication(s). Patient/caregiver is able to teach back 100% of instruction. Falls Problem:Assess and Instruct Home Visit Goal:Home Care Plan Completed Clinician taught: patient 4-10 Patient IS at risk for falls (a score of 6 or greater is a predictor of future falls) and clinician instructed: remove clutter and throw rugs, assistive device usage, keep frequently used items in reach and emergency response system and/or keep phone on you Patient/caregiver was able to demonstrate 100% via teachback Safety Problem:Assess and Instruct Home Visit Goal:Home Care Plan Completed Assessed patient vulnerability and home safety risks: fall risk Equipment reviewed none Patient at risk for harm or abuse no Family members involved in safety plan for Level 2 or 3 Plan for Next Visit Problem:Assess and Instruct Home Visit Goal:Home Care Plan Completed Follow up education for next visit: standing balance Skilled intervention at next visit: Next visit with RECYCLING TECHNICIAN to continue improving strength and balance in order to maximize safety with ambulation and functional transfers. Home Exercise Program Problem:Home Exercise Program Goal:Home Exercise Program Completed Patient reports: poor compliance Clinician taught: patient Clinician instructed on: RECYCLING TECHNICIAN provides skilled instruct to peform various balance activities in order to improve static and dynamic standing balance and progress safety and independence with ADLs/IADLs as well as progress towards LTGs. Pt completed high knee marching at kitchen counter, step ups 7x, and lateral/anterior/poste rior stepping with one UE support intermittently. Pt required frequent seated rest break s throughout due to increased fatigue and BLE weakness. Patient/caregiver is able to teach back 100% of instruction. Instruct Mobility Problem:Mobility Goal:Mobility Completed Patient reports: no falls Clinician taught: patient Clinician instructed on: RECYCLING TECHNICIAN provides skilled instruct to perform consecutive STS transfers 10x requiring VC for proper hand placement to rise and lower self from surface safely and for controlled descent upon sitting to ensure safety. Patient uses BUE to rise and lower self and utilizes no AD upon standing for support with good immediate standing balance displayed - patient achieve stand on first attempt 100% of time this date. RECYCLING TECHNICIAN provides skilled instruct to ascend/descend 7 stairs this date with one UE assist on HR and no UE assist on AD for support with step to pattern and S. RECYCLING TECHNICIAN provides skilled instruct to ambulate with no AD with RECYCLING TECHNICIAN SBA during - provides cues/education to improve overall gait sequencing/pattern to maximize safety and decrease fall risk in order to progress independence towards STGs/LTGs. Patient/caregiver is able to teach back 100% of instruction. [facility] Visit Details Visit Type -RECYCLING TECHNICIAN Routine Visi t Discipline -Physical Therapy Problems Problem Start Date Status Goals Interventions Wound Care and/or Skin Problems Disciplines: Physical Therapy 11/14/2023 Active 1 goal linked to scheduled/documented intervention 1 goal intervention scheduled/documented in this visit Assess and Instruct Home Visit Disciplines: Physical Therapy 11/14/2023 Active 2 goals linked to scheduled/documented interventions 4 goal interventions scheduled/documented in this visit Home Exercise Program Disciplines: Physical Therapy 11/14/2023 Active 1 goal linked to scheduled/documented intervention 1 goal intervention scheduled/documented in this visit Mobility Disciplines: Physical Therapy 11/14/2023 Active 1 goal linked to scheduled/documented intervention 1 goal intervention scheduled/documented in this visit Goals Goal Associated Problem Outcome Goal Met? Visit Notes Wound/Incision Wound Care and/or Skin Problems No Medications Assess and Instruct Home Visit No Home Care Plan Assess and Instruct Home Visit No Home Exercise Program Home Exercise Program No Mobility Mobility No Interventions Intervention Associated Problem/Goal Status Variance Visit Notes Wound/Incision Monitoring Problem:Wound Care and/or Skin Problems Goal:Wound/Incision Completed Educated patient on hand hygiene and infection control techniques, signs/symptoms of infection and when to call or report concerns to home health or provider. patient able to verbalize teach back of hand hygiene, signs/symptoms of infection and when to call or report concerns to home health or provider. Instruct Medication Management Problem:Assess and Instruct Home Visit Goal:Medications Completed Home Visit Med Education: Medication list reconciled. Medication profile and in-home medication list updated with appropriate changes. Discrepanices noted during home visit: none Instructed patient on dosing, purpose, and side effects. Medication education completed today on all medication(s). Patient/caregiver is able to teach back 100% of instruction. Falls Problem:Assess and Instruct Home Visit Goal:Home Care Plan Completed Clinician taught: patient 4-10 Patient IS at risk for falls (a score of 6 or greater is a predictor of future falls) and clinician instructed: remove clutter and throw rugs, assistive device usage, keep frequently used items in reach and emergency response system and/or keep phone on you Patient/caregiver was able to demonstrate 100% via teachback Safety Problem:Assess and Instruct Home Visit Goal:Home Care Plan Completed Assessed patient vulnerability and home safety risks: fall risk Equipment reviewed spc Patient at risk for harm or abuse no Family members involved in safety plan for Level 2 or 3 Plan for Next Visit Problem:Assess and Instruct Home Visit Goal:Home Care Plan Completed Follow up education for next visit: improve mobility Skilled intervention at next visit: Next visit with RECYCLING TECHNICIAN to continue improving strength and balance in order to maximize safety with ambulation and functional transfers. Home Exercise Program Problem:Home Exercise Program Goal:Home Exercise Program Completed Patient reports: poor compliance Clinician taught: patient Clinician instructed on: RECYCLING TECHNICIAN reviews HEP with patient. Patient demos good recall with technique and reports poor compliance with exercise program. Education provided on importance of performing HEP daily to facilitate strength and balance to return to PLOF. Patient/caregiver is able to teach back 100% of instruction. Instruct Mobility Problem:Mobility Goal:Mobility Completed Patient reports: no falls Clinician taught: patient Clinician instructed on: RECYCLING TECHNICIAN provides skilled instruct to ambulate with no AD with RECYCLING TECHNICIAN SBA during - provides cues/education to improve overall gait sequencing/pattern to maximize safety and decrease fall risk in order to progress independence towards STGs/LTGs. Pt required cues for increased step length/height. RECYCLING TECHNICIAN provides skilled instruct to perform consecutive STS transfers 10x requiring VC for proper hand placement to rise and lower self from surface safely and for controlled descent upon sitting to ensure safety. Patient uses BUE to rise and lower self and utilizes no AD upon standing for support with good immediate standing balance displayed - patient achieve stand on first attempt 100% of time this date with SBA. RECYCLING TECHNICIAN provides skilled instruct to peform various balance activities in order to improve static and dynamic standing balance and progress safety and independence with ADLs/IADLs as well as progress towards LTGs. Pt completed step ups 7x with one UE support on rail, and standing marching, HS curls, and hip abd 10xea at kitchen sink. Pt required SBA and cues to complete with pt requiring several seated rest breaks as she reports my legs feel weak. Patient/caregiver is able to teach back 100% of instruction. 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 HH Routine Discipline -Penitentiary Problems Problem Start Date Status Goals Interventions Assess and Instruct Home Visit Disciplines: Penitentiary 11/06/2023 Active 1 goal linked to scheduled/documented intervention 4 goal interventions scheduled/documented in this visit Medication Management Disciplines: Penitentiary 11/06/2023 Active 1 goal linked to scheduled/documented intervention 1 goal intervention scheduled/documented in this visit Pain Management Disciplines: Penitentiary 11/06/2023 Active 1 goal linked to scheduled/documented intervention 1 goal intervention scheduled/documented in this visit Goals Goal Associated Problem Outcome Goal Met? Visit Notes Home Care Plan Assess and Instruct Home Visit No Medications Medication Management No Pain Pain Management No Interventions Intervention Associated Problem/Goal Status Variance Visit Notes Falls Problem:Assess and Instruct Home Visit Goal:Home Care Plan Completed Denies falls. Safety Problem:Assess and Instruct Home Visit Goal:Home Care Plan Completed Assessed patient vulnerability and home safety risks: Lives in split level home Equipment reviewed walker within reach Patient at risk for harm or abuse A&O x4 Family members involved in safety plan Discharge Planning Problem:Assess and Instruct Home Visit Goal:Home Care Plan Completed Home Visit DC Planning: Spoke with patient about DC planning. Assessed for unsteady gait/poor balance DC will occur when: patient/caregiver is able to demonstrate remianing in home without falls Anticipate DC: On time Patient and/or caregiver response to discharge planning education: verbalized understanding Plan for Next Visit Problem:Assess and Instruct Home Visit Goal:Home Care Plan Completed Follow up education for next visit: DC Skilled intervention at next visit: DC Instruct Medication Management Problem:Medication Management Goal:Medications Completed Home Visit Med Education: Medication list reconciled. Medication profile and in-home medication list updated with appropriate changes. Discrepanices noted during home visit: none Assess Pain Characteristics and Current Pain Regimen and Instruct Methods of Pain Relief Problem:Pain Management Goal:Pain Completed [facility] Visit Details Visit Type -[facility] [place] Discipline -Penitentiary Problems Problem Start Date Status Goals Interventions Assess and Instruct Home Visit Disciplines: Penitentiary 11/06/2023 Resolved on 01/03/2024 1 goal linked to scheduled/documented intervention 4 goal interventions scheduled/documented in this visit Medication Management Disciplines: Penitentiary 11/06/2023 Resolved on 01/03/2024 1 goal linked to scheduled/documented intervention 1 goal intervention scheduled/documented in this visit Pain Management Disciplines: Penitentiary 11/06/2023 Resolved on 01/03/2024 1 goal linked to scheduled/documented intervention 1 goal intervention scheduled/documented in this visit Lab/INR Disciplines: Penitentiary 11/07/2023 Resolved on 01/03/2024 1 goal linked to scheduled/documented intervention 1 goal intervention scheduled/documented in this visit Cardiac Disciplines: Penitentiary 11/14/2023 Resolved on 01/03/2024 1 goal linked to scheduled/documented intervention Goals Goal Associated Problem Outcome Goal Met? Visit Notes Home Care Plan Assess and Instruct Home Visit Completed Yes Medications Medication Management Completed Yes Pain Pain Management Completed Yes Anticoagulation Therapy Lab/INR Completed Yes Cardiac Function Cardiac Completed Yes Interventions Intervention Associated Problem/Goal Status Variance Visit Notes Falls Problem:Assess and Instruct Home Visit Goal:Home Care Plan Scheduled Safety Problem:Assess and Instruct Home Visit Goal:Home Care Plan Scheduled Discharge Planning Problem:Assess and Instruct Home Visit Goal:Home Care Plan Scheduled Plan for Next Visit Problem:Assess and Instruct Home Visit Goal:Home Care Plan Scheduled Instruct Medication Management Problem:Medication Management Goal:Medications Scheduled Assess Pain Characteristics and Current Pain Regimen and Instruct Methods of Pain Relief Problem:Pain Management Goal:Pain Scheduled Anticoagulation Therapy Problem:Lab/INR Goal:Anticoagulation Therapy Completed INR of 1.7 reported to coumadin clinic. See narrative note. [facility] Narratives INR to be checked on next vi sit per coumadin clinic.Educated patient on the importance of foot care: proper foot care is important due to raynauds syndrome . This causes you to have decreased sensitivity to your feet and reduces your ability to feel blisters, cuts or pressure points on bony prominence due to ill-fitting shoe wear. Inspect your feet daily. Notify your SN or MD if a sore isn't healing within a few days. Wash your feet daily and clean in between your toes and dry them thoroughly. [facility] Narratives INR to be checked on next vi sit per coumadin clinic.Educated patient on the importance of foot care: proper foot care is important due to raynauds syndrome . This causes you to have decreased sensitivity to your feet and reduces your ability to feel blisters, cuts or pressure points on bony prominence due to ill-fitting shoe wear. Inspect your feet daily. Notify your SN or MD if a sore isn't healing within a few days. Wash your feet daily and clean in between your toes and dry them thoroughly. [facility] Actions Awake in bed. Pleasant. Comp lains of continued back pain. Pictures of toes obtained. Vital signs obtained. Fingerstick to right 2nd finger with result of 2.3. Results called into [facility] and spoke with Pharm. Cisneros. No new orders for coumadin, patient is to continue same dose. Next scheduled INR Monday11/14/2023 Narratives Homebound Status Criteria 1: Assistive Device(s): Walker Needs assistance of at least 1 to leave home Criteria 2: Patient confined to home due to unsteady gait/poor balance Type of Home: split level , 2-story house [facility] Actions Homebound Status Criteria 1: Assistive Device(s): Cane and Walker Needs assistance of at least 1 to leave home Criteria 2: Patient confined to home due to limited endurance related to major surgery/hospitalization and BP fluctuations. Type of Home: split level home Narratives Pt underwent surgery for rup tured AAA, infrarenal damage, incisions now closed. BP remains higher than before surgery. Pt keeps good record on vital signs and knows her meds well. [facility] Actions Homebound Status Criteria 1: Assistive Device(s): Cane and Walker Needs assistance of at least 1 to leave home Criteria 2: Patient confined to home due to limited endurance related to major surgery/hospitalization and BP fluctuations. Type of Home: split level home [facility] Actions Homebound Status Criteria 1: Assistive Device(s): Cane and Walker Needs assistance of at least 1 to leave home Criteria 2: Patient confined to home due to limited ambulation related to cardiac sx Type of Home: split level / walkout DC to family/physician when max potential achieved or goals met through therapeutic interventions/teachings. Narratives Patient is 63 year old femal e recently hospitilized on 10/08 to 10/22 secondary ruputered AAA requiring sx. PMHX includes but is not limited to: hypothyroidism, dvt, aaa, hld, PLOF: mi, drives, lives with , split Current level/needs: therapeutic exercises for BLE strengthening, therapeutic activities, gait training, stair training, transfer training, balance re- education, and falls risk reduction. OWNS (DME): [employer], [employer] FALLS: denies falls APPTS: 11/17/2023 8:00 AM Tylor Kruger MD PREFERS: no preference PRECAUTIONS: medically fragile GOALS: increase le strength, increase ambuatlion ability and return back to work 30 SCST: 1 TUG: unable to complete due to clutter PT POC: 2w4; ther ex, ther act, nmre, gait training. Pt educated on POC with pt agreeing/consenting, all questions answered. Pt provided with contact information for further questions/concerns. [facility] Actions Homebound Status Criteria 1: Assistive Device(s): Cane and Walker Needs assistance of at least 1 to leave home Criteria 2: Patient confined to home due to limited ambulation related to cardiac sx Type of Home: split level / walkout Narratives DC patient once goals are me t and max potential has been achieved through progressive interventions/education [facility]* Actions Homebound Status Criteria 1: Assistive Device(s): Cane and Walker Needs assistance of at least 1 to leave home Criteria 2: Patient confined to home due to limited ambulation related to cardiac sx Type of Home: split level / walkout Narratives DC patient once goals are me t and max potential has been achieved through progressive interventions/education [facility] Actions CP assess, VS WNL. Fingersti ck INR of 2.5 [facility] to [facility]. Patient to stay on current dose and be rechecked at next visit 11/28/2023. Narratives Homebound Status Criteria 1: Assistive Device(s): Walker Needs assistance of at least 1 to leave home Criteria 2: Patient confined to home due to unsteady gait/poor balance Type of Home: split level / walkout [facility] Actions Homebound Status Criteria 1: Assistive Device(s): Cane and Walker Needs assistance of at least 1 to leave home Criteria 2: Patient confined to home due to limited ambulation related to cardiac sx Type of Home: split level / walkout Narratives DC patient once goals are me t and max potential has been achieved through progressive interventions/education [facility] Actions Homebound Status Criteria 1: Assistive Device(s): Cane and Walker Needs assistance of at least 1 to leave home Criteria 2: Patient confined to home due to limited ambulation related to cardiac sx Type of Home: split level / walkout DC patient once goals are met and max potential has been achieved through progressive interventions/education Narratives Upon arrival, pt reports she had to use the restroom and then would be right out. Pt then returned from restoom and was about to descend stairs and reports she has to use the restroom again and states he has had diarrhea this morning. Pt states I dont think I should do any therapy this morning. I need to go lay back down because i just keep leaking. RECYCLING TECHNICIAN checked pt vitals and BP running slightly high, but pt states she has not had a chance to take her medication yet. RECYCLING TECHNICIAN notified PCP. Education provided on importance of staying hydrated with pt verbalizing understanding. [facility] Actions Homebound Status Criteria 1: Assistive Device(s): Cane and Walker Needs assistance of at least 1 to leave home Criteria 2: Patient confined to home due to limited endurance related to major surgery/hospitalization and BP fluctuations. Type of Home: split level home [facility]* Actions Homebound Status Criteria 1: Assistive Device(s): Cane and Walker Needs assistance of at least 1 to leave home Criteria 2: Patient confined to home due to limited endurance related to major surgery/hospitalization and BP fluctuations. Type of Home: split level home [facility] Actions Homebound Status Criteria 1: Assistive Device(s): Cane and Walker Needs assistance of at least 1 to leave home Criteria 2: Patient confined to home due to limited ambulation related to cardiac sx Type of Home: split level / walkout DC patient once goals are met and max potential has been achieved through progressive interventions/education [facility] Actions Homebound Status Criteria 1: Assistive Device(s): Cane and Walker Needs assistance of at least 1 to leave home Criteria 2: Patient confined to home due to limited endurance related to major surgery/hospitalization and BP fluctuations. Type of Home: split level home [facility] Actions Homebound Status Criteria 1: Assistive Device(s): Cane and Walker Needs assistance of at least 1 to leave home Criteria 2: Patient confined to home due to limited endurance related to major surgery/hospitalization and BP fluctuations. Type of Home: split level home [facility] Actions Homebound Status Criteria 1: Assistive Device(s): Cane and Walker Needs assistance of at least 1 to leave home Criteria 2: Patient confined to home due to limited ambulation related to cardiac sx Type of Home: split level / walkout Narratives DC patient once goals are me t and max potential has been achieved through progressive interventions/education [facility]* Actions CP assess, VS WNL. Fingersti ck INR of 3.5 called to [facility]. Dosage changed and patient aware. INR to be checked at visit next week. Narratives Homebound Status Criteria 1: Assistive Device(s): Cane and Walker Needs assistance of at least 1 to leave home Criteria 2: Patient confined to home due to unsteady gait/poor balance, dyspnea with exertion and unstable BP Type of Home: split level / walkout [facility]* Actions Homebound Status Criteria 1: Assistive Device(s): Cane and Walker Needs assistance of at least 1 to leave home Criteria 2: Patient confined to home due to limited endurance related to major surgery/hospitalization and BP fluctuations. Type of Home: split level home [facility] Actions Homebound Status Criteria 1: Assistive Device(s): Cane and Walker Needs assistance of at least 1 to leave home Criteria 2: Patient confined to home due to fair to good endurance related to recent surgery, rests on couch Type of Home: split level / walkout Narratives Pt practices driving once a day. goes with her and assists her into tub and down the stairs with cane. She is working a few hours a day and has planned to return to work with a heating pad and a cushion for her desk chair for 3-4 hours at a time when therapy is completed. [facility] Actions Homebound Status Criteria 1: Assistive Device(s): Cane and Walker Needs assistance of at least 1 to leave home Criteria 2: Patient confined to home due to limited ambulation related to cardiac sx Type of Home: split level / walkout Narratives DC patient once goals are me t and max potential has been achieved through progressive interventions/education [facility]* Actions Homebound Status Criteria 1: Assistive Device(s): Cane and Walker Needs assistance of at least 1 to leave home Criteria 2: Patient confined to home due to limited ambulation related to cardiac sx Type of Home: split level / walkout DC patient once goals are met and max potential has been achieved through progressive interventions/education [facility] Actions Homebound Status Criteria 1: Assistive Device(s): Cane and Walker Needs assistance of at least 1 to leave home Criteria 2: Patient confined to home due to limited ambulation related to cardiac sx Type of Home: split level / walkout DC patient once goals are met and max potential has been achieved through progressive interventions/education Narratives Upon arrival, pt reports she had to use the restroom and then would be right out. Pt then returned from restoom and was about to descend stairs and reports she has to use the restroom again and states he has had diarrhea this morning. Pt states I dont think I should do any therapy this morning. I need to go lay back down because i just keep leaking. RECYCLING TECHNICIAN checked pt vitals and BP running slightly high, but pt states she has not had a chance to take her medication yet. RECYCLING TECHNICIAN notified PCP. Education provided on importance of staying hydrated with pt verbalizing understanding. [facility] Actions Homebound Status Criteria 1: Assistive Device(s): Cane and Walker Needs assistance of at least 1 to leave home Criteria 2: Patient confined to home due to limited ambulation related to cardiac sx Type of Home: split level / walkout DC patient once goals are met and max potential has been achieved through progressive interventions/education Narratives pt reports she is planning t o return to work on 12/31 [address] dr approves it. [facility]* Actions Homebound Status Criteria 1: Assistive Device(s): Walker Needs assistance of at least 1 to leave home Criteria 2: Patient confined to home due to limited ambulation related to recent surgery for a AAA, poor endurance related to weakness and physician order for activity restrictions (ie, no stairs, etc.) Type of Home: split level / walkout, handrails, walk-in shower, equipment: Walkers, Type: Rolling Walker Narratives Coumadin clinic called with INR of 4.4. Pt declined for venipuncture for lab draw. Coumadin clinic aware. N.O. to skip this days dose of coumadin. Resume 5mg on all other days. Repeat INR 12/13/23 Unable to obtain Spo2. Wounds to toes documented. [facility]* Narratives RA complete this date, PT villasenor s completed 8 visits with focus on ther ex, ther act, nmre, gait training, nmre. Patient demonstrates progress towards goals including improvements in transfer , stair negotaition and dynamic standing balance. PT to continue at a frequency of 2w3 to continue addressing impaired limited endurance. Standardized testing scores include: TU and 30 second chair stand test: 3. Due to severity at onset, comorbidities, age, and complications during POC, patient would continue to benefit from skilled physical therapy. Patient is a good rehabilitation candidate due to strong family support, motivated/participation in POC, good adherence to recommendation/modifications and compliance with HEP. extend [facility]* Actions Homebound Status Criteria 1: Assistive Device(s): Cane and Walker Needs assistance of at least 1 to leave home Criteria 2: Patient confined to home due to limited ambulation related to cardiac sx Type of Home: split level / walkout DC patient once goals are met and max potential has been achieved through progressive interventions/education Narratives pt reports she is planning t o return to work on 12/31 as long [address] dr approves it. [facility] Actions Homebound Status Criteria 1: Assistive Device(s): Cane and Walker Needs assistance of at least 1 to leave home Criteria 2: Patient confined to home due to limited ambulation related to AAA surgery, unsteady gait/poor balance, unstable BP, poor endurance related to muscle weakness and physician order for activity restrictions (ie, no stairs, etc.) Type of Home: split level / walkout, handrails, walk-in shower, equipment: Cane, Type: Single Point Cane and Walkers, Type: Rolling Walker Narratives INR called into the [facility] coumadin clinic; spoke with Yenny. New coumadin orders: 2.5mg m/w/f and 5mg on all other days. Re-check INR 12/20/23 and call in with results. Wound care provided to darkened areas on right great toe and 5th toe, left great toe. Skin prep applied and pics uploaded. Patient given skin prep packets to apply 1-2x daily until she sees the vascular physician 12/26/23. Order for skin prep placed with [facility]. [facility] Actions CP assess, BP elevated, all other VS WNL. Dr Quispe aware of increased BP. Fingerstick INR of 4.4. Coumadin clinic updated. She is to hold tonights dose. Attempted two blood draws without success. Patient will go to [facility] tomorrow to get her BMP and INR drawn. Narratives Homebound Status Criteria 1: Assistive Device(s): Walker Needs assistance of at least 1 to leave home Criteria 2: Patient confined to home due to unsteady gait/poor balance and unstable BP Type of Home: split level / walkout [facility] Actions Homebound Status Criteria 1: Assistive Device(s): Cane and Walker Needs assistance of at least 1 to leave home Criteria 2: Patient confined to home due to limited ambulation related to cardiac sx Type of Home: split level / walkout Narratives DC patient once goals are me t and max potential has been achieved through progressive interventions/education [facility] Actions Homebound Status Criteria 1: Assistive Device(s): None Needs assistance of at least 1 to leave home Criteria 2: Patient confined to home due to unsteady gait/poor balance and dyspnea with exertion Type of Home: 2-story house Patient still hasn't decided on OP, reports she wants to wait until she is approved to return to work and has f/u with doctor Narratives Patient will discharge at en d of current plan of care to [facility] HEP pending PT assessment of patient reaching max potential [facility] Narratives PT to d/c at this time, PT g oals achieved, patient present and agree to PT d/c. Education provided for continued HEP, fall prevention, DME use and future procurement of services prn. Patient starts work next Monday. Cleared to work by PCP. PT INR clinic next Monday. Unable to upload pictures of wounds. [facility]* Actions Homebound Status Criteria 1: Assistive Device(s): None Needs assistance of at least 1 to leave home Criteria 2: Patient confined to home due to unsteady gait/poor balance and dyspnea with exertion Type of Home: 2-story house Patient still hasn't decided on OP, reports she wants to wait until she is approved to return to work and has f/u with doctor Narratives Patient will discharge at en d of current plan of care to [facility] pending PT assessment of patient reaching max potential [facility] Actions Homebound Status Criteria 1: Assistive Device(s): Cane and Walker Needs assistance of at least 1 to leave home Criteria 2: Patient confined to home due to limited ambulation related to cardiac sx Type of Home: split level / walkout Narratives DC patient once goals are me t and max potential has been achieved through progressive interventions/education [facility]* Actions Awake on sofa. Fingerstick t o left 2nd finger with INR result of 2.1. Result called into [facility] coumadin clinic. No new orders received. Pt verbalizes understanding coumadin dose to remain the same. Pt reports she will be going back to work and requests to be DC from home care. Coumadin clinic made aware pt will need to be seen in office starting next week. receiving manager made aware of pt request. Vital signs obtained. Narratives Homebound Status not require d by insurance [facility]* Actions Goals have been met. Reviewe d medications purpose and side effects. Patient able to teach back and understands medications. Educated on fall preventative measures for safety in home patient acknowledges understanding..Educate patient on medications with risk to cause a fall, pain medications, blood pressure med's, and any new medications added to medications to be educated on. Narratives Spoke with Fanny at [facility]madi n clinic with patient's INR of 1.7. Orders to take 5mg coumadin this day and resume regularly scheduled doses. F/u appt 01/09 @815am in the office. Patient has returned to work on 01/01/24, tolerating well she states with some mild exhaustion. She is able to leave work and return home during the day to rest. [facility]No reason for [facility] Work Phone: Assessments Diagnosis Lumbosacral radiculopathy - Primary Thoracic or lumbosacral neuritis or radiculitis, unspecified Sciatica of left side Pain of left lower extremity Diagnosis Pain of left lower extremity Diagnosis Pain of left lower extremity - Primary Encounter for hepatitis C ga reening test for low risk patient Hyperlipidemia, unspecified hyperlipidemia type Hypothyroidism, unspecified type Diagnosis Chronic left hip pain- Primary Hypothyroidism, unspecified type Hyperlipidemia, unspecified hyperlipidemia type Diagnosis Right lower quadrant abdominal pain- Primary Dysuria Diagnosis Acute appendicitis, unspecified acute appendicitis type- Primary Diagnosis Acute appendicitis, unspecified acute appendicitis type- Primary Acute appendicitis with localized peritonitis and gangrene, without perforation or abscess Diagnosis S/P appendectomy- Primary Other postprocedural status Diagnosis Trochanteric bursitis of right hip- Primary Diagnosis Bilateral hip pain Pain in joint, pelvic region and thigh Diagnosis Close Exposure to Covid-19 Virus Cough Wheezing Cigarette Smoker Tobacco use disorder Upper respiratory tract infection, unspecified type Diagnosis Hip pain, bilateral Pain in joint, pelvic region and thigh Bilateral hip pain Pain in joint, pelvic region and thigh Diagnosis Hypothyroidism, unspecified type- Primary Hyperlipidemia, unspecified hyperlipidemia type Hip pain, bilateral Pain in joint, pelvic region and thigh Diagnosis Hypothyroidism, unspecified type- Primary Hip pain, bilateral Pain in joint, pelvic region and thigh Summary Purpose Family History No Family History Records FoundNo Family History Records FoundNo Family History Records FoundNo Family History Records FoundNo Family History Records FoundNo Family History Records FoundNo Family History Records FoundNo Family History Records FoundNo Family History Records FoundNo Family History Records Found Advance Directives No Advanced Directives Records Found Date Activated Date Inactivated Comments 10/10/2023 4:02 PM 10/20/2023 10:38 PM Date Activated Date Inactivated Comments 10/10/2023 12:56 AM 10/10/2023 4:02 PM Date Activated Date Inactivated Comments 11/16/2022 2:19 PM 11/16/2022 4:20 PM Date Activated Date Inactivated Comments 06/10/2022 12:38 PM 06/11/2022 5:04 PM Date Activated Date Inactivated Comments 09/15/2018 12:42 AM 06/10/2022 8:47 AM Latest Code Status on File Code Status Date Activated Date Inactivated Comments Full Code 09/15/2018 12:42 AM Documents on File Type Date 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 Advance Directives and Livin g Will 09/14/2018 6:07 PM Documents on File Type Date Recorded 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 Advance Directives and Livin g Will 09/14/2018 6:07 PM Latest Code Status on File Code Status Date Activated Date Inactivated Comments Full Code 09/15/2018 12:42 AM Latest Code Status on File Date Activated Date Inactivated Comments 09/15/2018 12:42 AM Latest Code Status on File Code Status Date Activated Date Inactivated Comments Full Code 09/15/2018 12:42 AM Latest Code Status on File Code Status Date Activated Date Inactivated Comments Full Code 06/10/2022 12:38 PM 06/11/2022 5:04 PM Code Status History Code Status Date Activated Date Inactivated Comments Full Code 09/15/2018 12:42 AM 06/10/2022 8:47 AM Latest Code Status on File Code Status Date Activated Date Inactivated Comments Full Code 06/10/2022 12:38 PM 06/11/2022 5:04 PM Code Status History Code Status Date Activated Date Inactivated Comments Full Code 09/15/2018 12:42 AM 06/10/2022 8:47 AM Latest Code Status on File Code Status Date Activated Date Inactivated Comments Full Code 11/16/2022 2:19 PM 11/16/2022 4:20 PM Code Status History Code Status Date Activated Date Inactivated Comments Full Code 06/10/2022 12:38 PM 06/11/2022 5:04 PM Full Code 09/15/2018 12:42 AM 06/10/2022 8:47 AM Latest Code Status on File Code Status Date Activated Date Inactivated Comments Full Code 11/16/2022 2:19 PM 11/16/2022 4:20 PM Code Status History Code Status Date Activated Date Inactivated Comments Full Code 06/10/2022 12:38 PM 06/11/2022 5:04 PM Full Code 09/15/2018 12:42 AM 06/10/2022 8:47 AM Date Activated Date Inactivated Comments 11/16/2022 2:19 PM 11/16/2022 4:20 PM Date Activated Date Inactivated Comments 06/10/2022 12:38 PM 06/11/2022 5:04 PM Date Activated Date Inactivated Comments 09/15/2018 12:42 AM 06/10/2022 8:47 AM Date Activated Date Inactivated Comments 11/16/2022 2:19 PM 11/16/2022 4:20 PM Date Activated Date Inactivated Comments 06/10/2022 12:38 PM 06/11/2022 5:04 PM Date Activated Date Inactivated Comments 09/15/2018 12:42 AM 06/10/2022 8:47 AM Date Activated Date Inactivated Comments 10/10/2023 4:02 PM Date Activated Date Inactivated Comments 10/10/2023 4:02 PM Date Activated Date Inactivated Comments 10/10/2023 12:56 AM 10/10/2023 4:02 PM Date Activated Date Inactivated Comments 11/16/2022 2:19 PM 11/16/2022 4:20 PM Date Activated Date Inactivated Comments 06/10/2022 12:38 PM 06/11/2022 5:04 PM Date Activated Date Inactivated Comments 09/15/2018 12:42 AM 06/10/2022 8:47 AM Date Activated Date Inactivated Comments 10/10/2023 4:02 PM 10/20/2023 10:38 PM Date Activated Date Inactivated Comments 11/06/2023 2:09 PM Code Status re flects patient's informed choice. Date Activated Date Inactivated Comments 10/10/2023 4:02 PM 10/20/2023 10:38 PM Date Activated Date Inactivated Comments 10/10/2023 12:56 AM 10/10/2023 4:02 PM Date Activated Date Inactivated Comments 11/16/2022 2:19 PM 11/16/2022 4:20 PM Date Activated Date Inactivated Comments 06/10/2022 12:38 PM 06/11/2022 5:04 PM Date Activated Date Inactivated Comments 11/06/2023 2:09 PM Code Status re flects patient's informed choice. Date Activated Date Inactivated Comments 10/10/2023 4:02 PM 10/20/2023 10:38 PM Date Activated Date Inactivated Comments 10/10/2023 12:56 AM 10/10/2023 4:02 PM Date Activated Date Inactivated Comments 11/16/2022 2:19 PM 11/16/2022 4:20 PM Date Activated Date Inactivated Comments 06/10/2022 12:38 PM 06/11/2022 5:04 PM Date Activated Date Inactivated Comments 01/24/2024 2:00 PM Date Activated Date Inactivated Comments 01/19/2024 9:55 PM 01/24/2024 2:00 PM Date Activated Date Inactivated Comments 11/06/2023 2:09 PM 01/19/2024 7:47 PM Code Status reflects patient's informed choice. Date Activated Date Inactivated Comments 10/10/2023 4:02 PM 10/20/2023 10:38 PM Date Activated Date Inactivated Comments 10/10/2023 12:56 AM 10/10/2023 4:02 PM Date Activated Date Inactivated Comments 03/12/2024 12:11 PM 03/20/2024 9:44 PM Date Activated Date Inactivated Comments 01/24/2024 2:00 PM 02/25/2024 6:29 PM Date Activated Date Inactivated Comments 01/19/2024 9:55 PM 01/24/2024 2:00 PM Date Activated Date Inactivated Comments 11/06/2023 2:09 PM 01/19/2024 7:47 PM Code Status reflects patient's informed choice. Date Activated Date Inactivated Comments 10/10/2023 4:02 PM 10/20/2023 10:38 PM Date Activated Date Inactivated Comments 03/12/2024 12:11 PM 03/20/2024 9:44 PM Date Activated Date Inactivated Comments 01/24/2024 2:00 PM 02/25/2024 6:29 PM Date Activated Date Inactivated Comments 01/19/2024 9:55 PM 01/24/2024 2:00 PM Date Activated Date Inactivated Comments 11/06/2023 2:09 PM 01/19/2024 7:47 PM Code Status reflects patient's informed choice. Date Activated Date Inactivated Comments 10/10/2023 4:02 PM 10/20/2023 10:38 PM Advance Directive Response Recorded Date/ Time Living Will Yes July 23 025 8:43pm Power of Product Marketing Coordinator Yes July 23, 2024 8:43pm Name of Medical Power of Product Marketing Coordinator ? July 23, 2024 8:43pm Living Will No August 14, 2024 7:33am Power of Product Marketing Coordinator No August 14 7:33am Living Will No July 18 11:13am Power of Product Marketing Coordinator Yes July 18, 2024 11:13am Name of Medical Power of Product Marketing Coordinator SRIRAM ALVARES July 18, 2024 11:13am Living Will Yes July 31, 2024 6:15pm Power of Product Marketing Coordinator Yes July 31 6:15pm Name of Medical Power of Product Marketing Coordinator SRIRAM July 31, 2024 6:15pm Advance Directive Response Recorded Date/ Time Living Will Yes July 23 8:43pm Do you have a Healthcare Power of Product Marketing Coordinator? Yes July 23, 2024 8:43pm Name of Medical Power of Product Marketing Coordinator ? July 23, 2024 8:43pm Living Will No August 14, 2024 12:54pm Do you have a Healthcare Power of Product Marketing Coordinator? No August 14, 2024 12:54pm Living Will No July 18 11:13am Do you have a Healthcare Power of Product Marketing Coordinator? Yes July 18, 2024 11:13am Name of Medical Power of Product Marketing Coordinator SRIRAM ALVARES July 18, 2024 11:13am Living Will Yes July 31, 2024 6:15pm Do you have a Healthcare Power of Product Marketing Coordinator? Yes July 31, 2024 6:15pm Name of Medical Power of Product Marketing Coordinator SRIRAM July 31, 2024 6:15pm Advance Directive Response Recorded Date/ Time Living Will Yes July 23 8:43pm Do you have a Healthcare Power of Product Marketing Coordinator? Yes July 23, 2024 8:43pm Name of Medical Power of Product Marketing Coordinator ? July 23, 2024 8:43pm Living Will No August 14, 2024 12:54pm Do you have a Healthcare Power of Product Marketing Coordinator? No August 14, 2024 12:54pm Living Will No September 15, 2024 4:31am Do you have a Healthcare Power of Product Marketing Coordinator? Yes September 15, 2024 4:31am Name of Medical Power of Product Marketing Coordinator sriram--sister September 15, 2024 4:31am Living Will No July 18 11:13am Do you have a Healthcare Power of Product Marketing Coordinator? Yes July 18, 2024 11:13am Name of Medical Power of Product Marketing Coordinator SRIRAM ALVARES July 18, 2024 11:13am Living Will Yes July 31, 2024 6:15pm Do you have a Healthcare Power of Product Marketing Coordinator? Yes July 31, 2024 6:15pm Name of Medical Power of Product Marketing Coordinator SRIRAM July 31, 2024 6:15pm Reason for Referral Status Reason Specialty Diagnoses / Procedures Referred By Contact Referred To Contact Authorized Physical Medicin e and Rehabilitation Diagnoses Chronic left hip pain Bambi Huynh MD [address] [facility] [address] [place] [address] Sanjay Reyes, DO [address] Caruso [address] [place] [phone] Status Reason Specialty Diagnoses / Procedures Referred By Contact Referred To Contact Authorized Physical Therapy / Rehabilitation Diagnoses Hip pain, bilateral Bambi Huynh MD [address] [place] [address] [facility] [address] [place] [address] Specialty Diagnoses / Procedures Referred By Contac t Referred To Contact Radiology Diagnoses Post-menopause Procedures XR Bone Density DEXA Axial Ying Quispe, DO [address] [place] [address] Referral ID Status Reason Start Date Expiration Date V isits Requested Visits Authorized [id number] Authorized 11/18/2021 11/18/2022 1 1 Specialty Diagnoses / Procedures Referred By Contac t Referred To Contact Radiology Diagnoses Encounter for screening mammogram for malignant neoplasm of breast Procedures Mammography Screening Jose Bilateral Ying Quispe, DO [address] [place] [address] Referral ID Status Reason Start Date Expiration Date V isits Requested Visits Authorized [id number] Authorized 11/18/2021 11/18/2022 1 1 Specialty Diagnoses / Procedures Referred By Contac t Referred To Contact Hematology and Oncology Diagnoses Acute deep vein thrombosis (DVT) of axillary vein of left upper extremity (HCC) Ying Quispe DO [address] [place] [address] Lita Gu MD [address] [place] [address] Referral ID Status Reason Start Date Expiration Date V isits Requested Visits Authorized [id number] Authorized 06/27/2022 06/27/2023 1 1 Specialty Diagnoses / Procedures Referred By Contac t Referred To Contact Radiology Diagnoses Acute deep vein thrombosis (DVT) of axillary vein of left upper extremity (HCC) Current smoker Cigarette smoker Screening for malignant neoplasm of respiratory organ Procedures CT Lung Cancer Screening Lita Gu MD [address] [place] [address] Referral ID Status Reason Start Date Expiration Date V isits Requested Visits Authorized [id number] New Request 09/14/2022 09/14/2023 1 1 Specialty Diagnoses / Procedures Referred By Contac t Referred To Contact Radiology Diagnoses History of deep venous thrombosis Current smoker Transaminitis Factor V Leiden mutation (HCC) Lymphadenopathy Decreased muscle strength Lung nodule seen on imaging study Procedures MR Brain With And Without Contrast Lita Gu MD [address] [place] [address] Referral ID Status Reason Start Date Expiration Date V isits Requested Visits Authorized [id number] New Request 10/18/2022 10/18/2023 1 1 Specialty Diagnoses / Procedures Referred By Contac t Referred To Contact Radiology Diagnoses History of deep venous thrombosis Current smoker Transaminitis Factor V Leiden mutation (HCC) Lymphadenopathy Decreased muscle strength Lung nodule seen on imaging study Procedures PET Tumor Imaging With CT Skull To Thigh Lita Gu MD [address] [place] [address] Referral ID Status Reason Start Date Expiration Date V isits Requested Visits Authorized [id number] New Request 10/18/2022 10/18/2023 4 4 Specialty Diagnoses / Procedures Referred By Contac t Referred To Contact Neurology Diagnoses History of deep venous thrombosis Current smoker Transaminitis Factor V Leiden mutation (HCC) Lymphadenopathy Decreased muscle strength Lung nodule seen on imaging study Lita Gu MD [address] [place] [address] [facility] [address] [place] [address] Medical Office Building, 2nd [place] [address] Referral ID Status Reason Start Date Expiration Date Visits Requested Visits Authorized [id number] Authorized Specialty Services Required/Pat ient's Best Interest 09/27/2022 09/27/2023 1 1 Specialty Diagnoses / Procedures Referred By Contac t Referred To Contact Radiology Diagnoses History of deep venous thrombosis Lymphadenopathy Axillary lymphadenopathy Procedures CT Biopsy Lymph Node Lita Gu MD [address] [place] [address] Referral ID Status Reason Start Date Expiration Date V isits Requested Visits Authorized [id number] New Request 11/08/2022 11/08/2023 1 1 Specialty Diagnoses / Procedures Referred By Contact Referred To Contact Interventional Radiology Diagnoses History of deep venous thrombosis Lymphadenopathy Axillary lymphadenopathy Lita Gu MD [address] [place] [address] [place] [address] Referral ID Status Reason Start Date Expiration Date Visits Requested Visits Authorized [id number] Authorized Specialty Services Required/Pat ient's Best Interest 10/25/2022 10/25/2023 1 1 Specialty Diagnoses / Procedures Referred By Contact Referred To Contact Anticoagulation Monitoring Diagnoses History of deep venous thrombosis Reactive lymphadenopathy Factor V Leiden mutation (HCC) Lita Gu MD [address] [place] [address] Caruso [address] [place] [phone] Referral ID Status Reason Start Date Expiration Date Visits Requested Visits Authorized [id number] Authorized Specialty Services Required/Pat ient's Best Interest 12/12/2022 02/26/[phone] Scheduling Instructions The Anticoagulation Clinic Staff will contact eligible referred patients within two business days to schedule their first appointment. The referring physician will be notified of this appointment and will maintain responsibility for anticoagulation monitoring of their patient until that date. Referral ID Status Reason Start Date Expiration Date V isits Requested Visits Authorized [id number] Authorized 02/08/2023 02/08/2024 1 1 Specialty Diagnoses / Procedures Referred By Contac t Referred To Contact Cardiology Diagnoses Right-sided low back pain with right-sided sciatica, unspecified chronicity Procedures Segmental Doppler Lower Extremity Arterial Yfn Puckett Jr., DPM [address] [id number] [facility] [address] [facility] [place] [address] Referral ID Status Reason Start Date Expiration Date V isits Requested Visits Authorized [id number] Authorized 07/04/2023 07/03/2024 1 1 Specialty Diagnoses / Procedures Referred By Contac t Referred To Contact Neurosurgery Diagnoses Lumbosacral radiculopathy Yfn Puckett Jr., DPM [address] [place] [address] Nenita Khan MD [address] [address] Referral ID Status Reason Start Date Expiration Date V isits Requested Visits Authorized [id number] Authorized 08/01/2023 07/31/2024 1 1 Specialty Diagnoses / Procedures Referred By Contac t Referred To Contact Radiology Diagnoses Lumbosacral radiculopathy Weakness of right lower extremity Paresthesias Procedures MR Lumbar Spine Without Contrast Theresa Boykin PA-C [address] [address] Referral ID Status Reason Start Date Expiration Date V isits Requested Visits Authorized [id number] New Request 08/24/2023 08/23/2024 1 1 Specialty Diagnoses / Procedures Referred By Contac t Referred To Contact Neurology Diagnoses Weakness of right lower extremity Paresthesias Theresa Boykin PA-C [address] [facility] [address] [place] [address] Referral ID Status Reason Start Date Expiration Date V isits Requested Visits Authorized [id number] Authorized 08/24/2023 08/23/2024 1 1 Specialty Diagnoses / Procedures Referred By Contac t Referred To Contact Cardiology Diagnoses Ruptured abdominal aortic aneurysm (AAA), unspecified part (HCC) Procedures Ultrasound renal artery duplex, complete Tylor Kruger MD [address] [place] [address] Referral ID Status Reason Start Date Expiration Date V isits Requested Visits Authorized [id number] Authorized 11/11/2023 11/10/2024 1 1 Specialty Diagnoses / Procedures Referred By Contac t Referred To Contact Home Health Services Diagnoses Hypertension, unspecified type Orthostatic hypotension TUTU (acute kidney injury) (HCC) Debility Ruptured abdominal aortic aneurysm (AAA), unspecified part (HCC) Aftercare following surgery of the circulatory system Ying Quispe DO [address] [place] [address] [address] Referral ID Status Reason Start Date Expiration Date V isits Requested Visits Authorized [id number] Authorized 11/02/2023 11/01/2024 1 1 Scheduling Instructions Pt must make office appt any with PCP Ying Quispe DO Specialty Diagnoses / Procedures Referred By Contac t Referred To Contact Radiology Diagnoses 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) PVD (peripheral vascular disease) (HCC) Procedures CT Angiogram Abdominal Aorta With Lower Extremity Tylor Kruger MD [address] [place] [phone] Referral ID Status Reason Start Date Expiration Date V isits Requested Visits Authorized [id number] New Request 11/18/2023 11/17/2024 1 1 Specialty Diagnoses / Procedures Referred By Contac t Referred To Contact Wound Care Diagnoses PVD (peripheral vascular disease) (HCC) Tylor Kruger MD [address] [facility] [address] [place] [address] Op [facility] [address] [place] [phone] Referral ID Status Reason Start Date Expiration Date Visits Requested Visits Authorized [id number] Authorized Specialty Services Required/Pat ient's Best Interest 11/21/2023 11/20/2024 1 1 Specialty Diagnoses / Procedures Referred By Contac t Referred To Contact Cardiology Diagnoses PVD (peripheral vascular disease) (HCC) Ischemia of toe Procedures US Doppler ankle/brachial index Abigail Estrella, CLIMATOLOGY PROFESSOR [address] [place] [address] [place] [address] Referral ID Status Reason Start Date Expiration Date V isits Requested Visits Authorized [id number] Authorized 11/22/2023 11/21/2024 1 1 Specialty Diagnoses / Procedures Referred By Contac t Referred To Contact Cardiology Diagnoses 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) Procedures US Abdominal Aortic Aneurysm Duplex (AAA) Sarath Rey MD [address] [place] [phone] Referral ID Status Reason Start Date Expiration Date V isits Requested Visits Authorized [id number] Authorized 12/26/2023 12/25/2024 1 1 Specialty Diagnoses / Procedures Referred By Contac t Referred To Contact Cardiology Diagnoses Renal insufficiency Procedures Ultrasound renal artery stenosis hypertension limited Sarath Rey MD [address] [place] [address] Referral ID Status Reason Start Date Expiration Date V isits Requested Visits Authorized [id number] Authorized 12/26/2023 12/25/2024 1 1 Specialty Diagnoses / Procedures Referred By Contac t Referred To Contact Nephrology Diagnoses Renal insufficiency Sarath Rey MD [address] [phone] Yisel Paiz MD [address] [place] [address] Referral ID Status Reason Start Date Expiration Date Visits Requested Visits Authorized [id number] Authorized Specialty Services Required/Pat ient's Best Interest 12/26/2023 12/25/2024 1 1 Specialty Diagnoses / Procedures Referred By Joanne mercedes Referred To Contact Radiology Diagnoses 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) Postoperative leak Procedures CT Angiogram Chest Abdomen Pelvis Sarath Rey MD [address] [phone] Referral ID Status Reason Start Date Expiration Date V isits Requested Visits Authorized [id number] New Request 01/05/2024 01/04/2025 1 1 History of Present Illness * Bambi Huynh MD - 2018 8:19 AM EST [facility] [place] [id number] Scott [place] 1960 [id number] HPI: 58-year-old female with hypothyroidism, hyperlipidemia, chronic smoking, and chronic recurringleft low back/hip pain presents in follow-up. Hypothyroidism of many years duration. Compliant with levothyroxine 125 mcg daily. Euthyroid clinically. Due for TSH level again this summer. Continues to smoke cigarettes. One pack may last for 1-1/2-2 days. Smoking cessation program being started at her workplace in the near future and she is considering participation. Denies hemoptysis.Denies chronic cough with worsening morning symptoms. No respiratory infections this winter. Continues to complain of intermittent left hip/low back pain. Pain somewhat laterally localized. Discomfort does not radiate down the leg below knee. Symptoms worse with walking incline. Symptoms interfere with physical activity. No weakness of foot or leg. Did visit with orthopedics last spring. Was advised to consider pain management consultation. Patient did not attend. Discussion again today regarding health maintenance issues of mammogram, Pap smear, colon cancer testing, lipid management for elevated cardiovascular risk. Patient again not willing to pursue these yet although she is looking into colo-guard and hopes to schedule mammography in the spring. Medications: Current Outpatient Medications Medication Sig Dispense Refill levothyroxine (SYNTHROID, LEVOTHROID) 125 MCG tablet Take 1 (one) tablet (125 mcg total) by mouth once daily . 90 tablet 3 No current facility-administered medications for this visit. Allergies: Allergies Allergen Reactions Iodine And Iodide Containing Products GI Intolerance Seafood, Vomiting Problem List Items Addressed This Visit Endocrine Hypothyroidism Relevant Orders TSH Other Hyperlipidemia Relevant Orders Lipid Panel Other Visit Diagnoses Chronic left hip pain - Primary Relevant Orders Ambulatory referral to Medical Spine Program ROS: No illnesses this winter. No change in breathlessness with routine activity. Weight gain noted. Vision and Hearing: No significant deficit Physical Exam: Vitals: 07/17/18 0736 BP: 129/79 BP Location: Right arm Patient Position: Sitting BP Cuff Size: X-large Adult Pulse: 79 Temp: 98.1 F (36.7 C) TempSrc: Oral SpO2: 98% Weight: 90.6 kg (199 lb 11.2 oz) Height: 6' Patient in no distress. Alert and oriented x3. No thyroid enlargement. Cardiac tones regular. No wheezes rales rhonchi on lung exam. No edema in feet or ankles. Negative straight leg sign. Minimal discomfort in left hip with knee to chest flexion. Good hip rotational motion. No pain palpating the greater trochanter. Impression/Plan: Hypothyroidism. Euthyroid clinically. Check TSH prior to next visit. Hyperlipidemia with elevated cardiovascular risk score. Discussed again current indications for primary prevention statin use. She is not interested at this point. Discussed importance of smoking cessation in cardiovascular risk and cancer as well. Chronic hip/low back pain. Patient wants another opinion regarding cause of her symptoms. Referral to medical spine. She will call when she is ready to pursue some of the other health maintenance issues mentioned above For any new medications prescribed today, patient was educated about indications for the medication, how to take the medication and potential side effects of the medications. Return in about 6 months (around 01/14/2019). Bambi Huynh MD * Lilly Johnson MA - 2018 8:09 AM EST Rooming Documentation How often do you need to have someone help you when you read instructions, pamphlets or other written material from your doctor or pharmacy? Health Literacy Patient Response: Never Are you experiencing any side effects or adverse reactions to your medications? Patient response: No Do you have any problems taking your medications? Patient Response: No Patient states they do understand their medications Are you taking any fhgz-ilk-rzsmgrr medications or supplements? Patient Response: OTC Multivitamins and [place] Since last being seen in this office, have you seen another healthcare provider? Patient Response: Yes. If yes, where did you see this provider? Dentist in this encounter* Bambi Huynh MD - 09/14/2018 1:22 PM EDT [facility] [address] [place] [address] Scott K Mago 1960 [id number] HPI: 58-year-old female added to the schedule with abdominal pain. Yesterday she developed right lower quadrant abdominal discomfort and was also noticing a significant increase in urinary frequency with urgency. Last evening she had some chills but did not check her temperature. Today she has similar symptoms but not as severe. No temperature elevation today no vomiting. One formed bowel movement this morning nonbloody. Denies any unusual sexual activity or vaginal discharge. No history of kidney stone. Appendix remain. Pain listed at 4 out of 10 at this time. Medications: Current Outpatient Medications Medication Sig Dispense Refill levothyroxine (SYNTHROID, LEVOTHROID) 125 MCG tablet Take 1 (one) tablet (125 mcg total) by mouth once daily . 90 tablet 3 No current facility-administered medications for this visit. Allergies: Allergies Allergen Reactions Iodine And Iodide Containing Products GI Intolerance Seafood, Vomiting Problem List Items Addressed This Visit None Visit Diagnoses Right lower quadrant abdominal pain - Primary Relevant Orders CBC and Differential Urinalysis with microscopic Dysuria Relevant Orders Urinalysis with microscopic Social History Socioeconomic History Marital status: Spouse name: None Number of children: None Years of education: None Highest education level: None Social Needs Financial resource strain: None Food insecurity - worry: None Food insecurity - inability: None Transportation needs - medical: None Transportation needs - non-medical: None Occupational History None Tobacco Use Smoking status: Current Every Day Smoker Packs/day: 0.50 Years: 20.00 Pack years: 10.00 Types: Cigarettes Start date: 05/05/1996 Smokeless tobacco: Never Used Substance and Sexual Activity Alcohol use: Yes Comment: Occassionally Drug use: No Sexual activity: Never Other Topics Concern None Social History Narrative None ROS: No history of colitis. No recent foreign travel. No recent antibiotics. Vision and Hearing: No deficits. Physical Exam: Vitals: 09/14/18 1251 BP: 132/86 BP Location: Left arm Patient Position: Sitting BP Cuff Size: X-large Adult Pulse: 94 Temp: 98.9 F (37.2 C) TempSrc: Oral SpO2: 94% Weight: 90.3 kg (199 lb 1.6 oz) Height: 6' Patient does not look toxic or acutely ill. She is afebrile. Pulse is 94. Alert and oriented x3. Iliac rhythm regular. Bowel sounds are present. Abdomen is soft and nondistended. She has right lower quadrant tenderness more than suprapubic tenderness. There is no rebound no rigidity. The left side of her abdomen is completely unremarkable. Some of the discomfort radiates up the right flank. No CVA percussion tenderness. Impression/Plan: Right lower quadrant abdominal pain. Differential includes acute cystitis, ureteral calculus but doubt. Consider appendicitis of course. Doubt focal colitis. Consider ETHICS INSTRUCTOR source but suspicion low forPID. Ovarian cyst to of course be considered. Patient does not wish to go to the emergency room so we will start with UA and CBC. Notify patient. She has been given strict instructions to go directlyto the emergency room if her pain considerably increases, she develops a temperature elevation withsweats and chills. For any new medications prescribed today, patient was educated about indications for the medication, how to take the medication and potential side effects of the medications. No follow-ups on file. Bambi Huynh MD * Lilly Johnson MA - 09/14/2018 12:55 PM EDT Rooming Documentation How often do you need to have someone help you when you read instructions, pamphlets or other written material from your doctor or pharmacy? Health Literacy Patient Response: Never Are you experiencing any side effects or adverse reactions to your medications? Patient response: No Do you have any problems taking your medications? Patient Response: No Patient states they do understand their medications Are you taking any lise-wcl-esijrqq medications or supplements? Patient Response: OTC Multivitamins Since last being seen in this office, have you seen another healthcare provider? Patient Response: No documented in this encounter* Татьяна Jenkins MD - 09/15/2018 9:47 AM EDT [facility] PATIENT: Scott Winters Mago DATE / TIME: 09/15/18 9:48 AM POS: Office AGE: 58 y.o. : 1960 RACE: [1] SEX: female PCP: Bambi Huynh MD REFERRAL: Dewayne Barlow MD TOS: SUBJECTIVE: Pain well controlled (mild pain when getting out of bed). No complaints. Ambulating well. Has not yet eaten. OBJECTIVE: PACU Vitals 09/15/18 0702 BP: (!) 146/77 Pulse: 67 Resp: 16 Temp: 97.4 F (36.3 C) SpO2: 95% NAD A&O NLR Abd: s/nd/attp labwork reviewed. Cr returned to normal ASSESSMENT: The patient is a 58 yo F s/p appendectomy PLAN: Plan to d/c home if tolerating a diet. documented in this encounter* Татьяна Jenkins MD - 10/12/2018 3:00 PM EDT [facility] PATIENT: Scott Winters Mago DATE / TIME: 10/12/18 3:47 PM POS: Office AGE: 58 y.o. : 1960 RACE: [1] SEX: female PCP: Bambi Huynh MD REFERRAL: No ref. provider found TOS: SUBJECTIVE: The patient is recovering well from surgery. She has no complaints regarding her incisions. She is tolerating regular diet. Bowel movements have been slightly more frequent. OBJECTIVE: PACU Vitals 10/12/18 1525 BP: (!) 168/91 Pulse: 78 Temp: 97.8 F (36.6 C) SpO2: 98% NAD A&O NLR Abd: s/nt/nd inc: c/d/i PATHOLOGY: Case Report Surgical Pathology Report Case: [id number] Authorizing Provider: Татьяна Jenkins MD Collected: 09/14/2018 10:48 PM Ordering Location: [facility] Periop Received: 09/17/2018 10:42 AM Pathologist: Jaron Méndez MD Specimen: Appendix Final Diagnosis A. Appendix, appendectomy: Acute appendicitis. at 1054 Clinical Information None Given Gross Description The specimen received in formalin consists of appendix measuring 9.5 cm in length and ranging from 0.5 to 1.2 cm in diameter. Reddish and pinkish-barrios exudate is on the appendiceal surface. Serial sections demonstrate a thickened appendiceal wall. 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 JF;lat Gross examination performed at: [facility] - [address] [place] [address] Microscopic Description Microscopic examination is performed. ASSESSMENT: The patient is a 58-year-old female status post laparoscopic appendectomy 09/14/2018 PLAN: The patient is recovering well. Follow-up as needed documented in this encounter* Mendez Roy MD - 11/07/2018 7:38 AM EDT Dictation on: 11/07/2018 7:38 AM by: MENDEZ ROY [[id number]] documented in this encounter* Leanne Gomes PTA - 04/17/2019 5:30 PM EST [facility] OUTPATIENT REHABILITATION DAILY TREATMENT NOTE Today's Date 04/17/2019 Patient Name: Scott Obregon Date of : 1960 Current Visit #: 4 Authorized Visits: 60 Case Name: bilateral hip pain History: Pre-Treatment Pain Scale: (R) 2/10, (L) not much Symptoms: gradually improved Functional Diagnosis: 1. Bilateral hip pain Clinical Information: Subjective: Pt states overall she is feeling better with her therapy. She does note she cont to feel hip pain with various activities but not as intense as prior to IE. Steps are not that bad, but Ican still feel it. She states she purchase softball that she worked with for STM HEP but she is unsure if there was a significant difference compared to when this is performed in the clinic. She states clamshell exercises are still painful. Objective: Cont with current program for relief of symptoms; modification with exercises to order to reduce irritation with performance. Treatments: Physical Therapy Exercise Log - 04/17/19 7688 OTHER Precautions/Contraindications [phone] Notes Supervising PT Fuad 8 Therapeutic Exercise (50851) Intervention SciFit L2, 5 minutes Parameters PT performed STM glutes bilaterally, utilized baseball today on plinth for self release 8' total Intervention glute / piriformis stretch 10x10 each (B) Parameters Supine bridge 10X2 3 hold Intervention SLR extension (B) 10x2 Parameters sidelying clamshells 10x Intervention SLR abduction (pillows under top leg to keep it at neutral) x10 B Parameters standing knee on stool hip ER / IR AROM B 2x10 each direction PT Treatment Times Therex Total Time 29 Manual Therapy Total Time 10 Direct Treatment Time 39 Total Treatment Time 39 Goals: Physical Therapy Ortho Goals: OTHER: Patient will increase FOTO score to at least 61 to show MDC/MCII and expected functional outcome in 4 weeks. Pt will demonstrate improved glute strength to at least 4+/5 bilaterally allowing for ease of stairnegotiation / distance ambulation. 4 weeks. Pt will report decreased bilateral hip pain by at least 50% allowing for ease of ADLs and help pt return to recreational exercise. 4 weeks. IE date: 04/08/2019 Progress report due: Recert due: visit #8 Patient Education: Quality of movement, HEP Modification, Diagnosis and recovery specific educationand Pain Management with patient demonstrated understanding and verbalized understanding. Post-Treatment Pain Scale: 0 Assessment: Patient had an expected response to treatment. Less pain with (B) hip pin and stretches. Gait slightly less antalgic upon exiting clinic area. Skilled Intervention demonstrated by modifications of treatment per exercise log including decreased load, increased cueing and increased intensity and safety interventions per exercise log. Progress towards goals as expected. Plan for Next Visit: cont Leanne Gomes PTA STATE LICENSE, [id number] documented in this encounter* Oh Crockett, YEVGENIY - 04/24/2019 1:45 PM EST [facility] OUTPATIENT REHABILITATION DAILY TREATMENT NOTE Today's Date 04/24/2019 Patient Name: Scott Obregon Date of : 1960 Current Visit #: 6 Authorized Visits: 60 Case Name: bilateral hip pain History: Pre-Treatment Pain Scale: 2-3 Symptoms: stabilized Functional Diagnosis: 1. Bilateral hip pain Clinical Information: Subjective: Pt states felt good after last session with some relief post session. Pt comes in with a 2-3/10 pain mostly on R hip. Objective: started with bike as a hip warm up with resistance for strengthening. Pt cont with strengthening and stretching per flow sheet. Ended with manual DTM to piriformis with the stick on ITB. Treatments: Physical Therapy Exercise Log - 04/24/19 [id number] OTHER Notes Supervising PT Fuad 8 Therapeutic Exercise (68787) Intervention SciFit L2, 5 minutes Parameters PT performed STM glutes bilaterally, utilized baseball today on plinth for self release 8' total Intervention glute / piriformis stretch 10x10 each (B) Parameters Supine bridge 10X2 3 hold Intervention SLR extension (B) 10x2 Parameters sidelying clamshells 10x2 Intervention SLR abduction (pillows under top leg to keep it at neutral) x10 B Parameters standing knee on stool hip ER / IR AROM B 2x10 each direction Intervention ITB STM with foam roll, 10' total (5 on each side) PT Treatment Times Therex Total Time 30 Manual Therapy Total Time 10 Direct Treatment Time 40 Total Treatment Time 45 Goals: Physical Therapy Ortho Goals: OTHER: Patient will increase FOTO score to at least 61 to show MDC/MCII and expected functional outcome in 4 weeks. Pt will demonstrate improved glute strength to at least 4+/5 bilaterally allowing for ease of stairnegotiation / distance ambulation. 4 weeks. Pt will report decreased bilateral hip pain by at least 50% allowing for ease of ADLs and help pt return to recreational exercise. 4 weeks. IE date: 04/08/2019 Progress report due: Recert due: visit #8 Patient Education: Quality of movement with patient demonstrated understanding. Post-Treatment Pain Scale: 0 Assessment: Patient had an expected response to treatment. discussed progress made with pain. Pt states has good days and bad days. Good tolerance to DTM to piriformis region. Slight decrease in pain post session. Skilled Intervention demonstrated by modifications of treatment per exercise log including increased load and safety interventions per exercise log. Progress towards goals as expected. Plan for Next Visit: Treatment Visit with focus on Cont POC Oh Crockett PTA STATE LICENSE, [id number] documented in this encounter* Fuad Pisano, PT - 05/01/2019 5:30 PM EST [facility] OUTPATIENT REHABILITATION DAILY TREATMENT NOTE Today's Date 05/02/2019 Patient Name: Scott Obregon Date of : 1960 Current Visit #: 8 Authorized Visits: 60 Case Name: bilateral hip pain History: Pre-Treatment Pain Scale: 1 Symptoms: gradually improved Functional Diagnosis: 1. Bilateral hip pain Clinical Information: Subjective: Pt reports that she has noticed improvement with PT. Reports that she is going to startgoing to [employer] again. Objective Hip Right Hip Tenderness: greater trochanter glute / piriformis attachment site Muscle Strength: Extension: 4+ Abduction: 4+ Left Hip Tenderness: greater trochanter glute / piriformis attachment site Muscle Strength: Extension: 4+ Abduction: 4+ Treatments: Physical Therapy Exercise Log - 05/01/19 5828 OTHER Notes Supervising PT Fuad 8 Therapeutic Exercise ([id number]) Intervention SciFit L2, 5 minutes Parameters PT performed STM glutes bilaterally, utilized baseball today on plinth for self release 8' total Intervention glute / piriformis stretch 10x10 each (B) Parameters standing knee on stool hip ER / IR AROM B 2x10 each direction with yellow band Goals: Physical Therapy Ortho Goals: OTHER: Patient will increase FOTO score to at least 61 to show MDC/MCII and expected functional outcome in 4 weeks. PROGRESS MADE Pt will demonstrate improved glute strength to at least 4+/5 bilaterally allowing for ease of stairnegotiation / distance ambulation. 4 weeks. MET Pt will report decreased bilateral hip pain by at least 50% allowing for ease of ADLs and help pt return to recreational exercise. 4 weeks. MET Patient Education: Quality of movement, Verbal HEP, HEP Adherence and Diagnosis and recovery specific education with patient demonstrated understanding and verbalized understanding. Post-Treatment Pain Scale: 1 Assessment: Patient had an expected response to treatment. Progress towards goals as expected. Discharge to [facility] Fuad Pisano PT STATE LICENSE, [id number] documented in this encounter* Rebeca Kaur CNP - 12/06/2019 11:10 AM EDT Patient Name: [facility] [place] [id number] Date Of : Date Of Visit: 1960 12/06/2019 MRN# Provider: [id number] Rebeca Kaur CNP Chief Complaint Patient presents with Cough congestion, runny nose, symptoms x 1 week Assessment & Plan 1. Close Exposure to Covid-19 Virus COVID-19, Molecular Pending COVID-19 lab result COVID-19, Molecular 2. Cough COVID-19, Molecular Pending COVID-19 lab result COVID-19, Molecular benzonatate (Tessalon Perles) 100 MG capsule 3. Wheezing albuterol 90 mcg/actuation inhaler 4. Cigarette Smoker 5. Upper respiratory tract infection, unspecified type benzonatate (Tessalon Perles) 100 MG capsule fluticasone propionate (FLONASE) 50 mcg/actuation nasal spray No follow-ups on file. Medical Decision Making Client is non-toxic in NAD. She has URI symptoms for 6 days and improving. He lungs are clear at this time with no wheezing or rales. She is a smoker. Additional Clinical Comments Educated patient and/or guardian about signs and symptoms that would warrant further immediate evaluation. Recommended that they should return to urgent care, make an appointment with their family physician, or go to the emergency room if symptoms persist or get acutely worse. Recommended follow upwithin the next week with their PCP or to get established with a PCP soon in order to follow up appropriately. [facility] COVID-19 Mask Status: Does the patient have classic COVID-19 symptoms? Yes, the patient has COVID-19 symptoms, the patient WAS wearing a mask during the visit, I (the provider) WAS wearing full PPE (N95 mask, gown, gloves, and face shield) during the visit. and [employer] Visit was utilized for this patient visit. Patient read general consent to treat, and was then asked if he/she had any questions, which were all answered satisfactorily, and patient consented verbally. Subjective 59 y.o. female presents with Cough (congestion, runny nose, symptoms x 1 week) Client with scratchy throat with low grade fever at onset and now with runny nose and cough. Clientreports employer wants to rule out COVID. Client reports her cough is improving. She has clear nasal drainage and clear sputum when cough is productive. Cough This is a new problem. The current episode started in the past 7 days. The problem has been gradually improving. The problem occurs hourly. The cough is non-productive. Associated symptoms include a fever, nasal congestion, postnasal drip, rhinorrhea and wheezing. Pertinent negatives include no chest pain, chills, ear congestion, ear pain, headaches, myalgias, rash, sore throat, shortness of breath or sweats. The symptoms are aggravated by lying down and cold air. Treatments tried: Nyquil. The treatment provided mild relief. Her past medical history is significant for bronchitis. There is no history of asthma, bronchiectasis, COPD, emphysema, environmental allergies or pneumonia. Review Of Systems Review of Systems Constitutional: Positive for fever. Negative for activity change, appetite change, chills, diaphoresis and fatigue. HENT: Positive for congestion, postnasal drip and rhinorrhea. Negative for ear pain, sinus pressure, sinus pain and sore throat. Respiratory: Positive for cough and wheezing. Negative for chest tightness and shortness of breath. Cardiovascular: Negative for chest pain. Gastrointestinal: Negative for diarrhea, nausea and vomiting. Genitourinary: Normal urination. Musculoskeletal: Negative for arthralgias and myalgias. Skin: Negative for rash. Allergic/Immunologic: Negative for environmental allergies. Neurological: Negative for headaches. Medical History Past Medical History: Diagnosis Date Anemia Appendicitis 2019 Disease of thyroid gland Hypothyroidism Hyperlipidemia Hypertension borderline Patient Active Problem List Diagnosis Hypothyroidism Hyperlipidemia Acute appendicitis with localized peritonitis and gangrene, without perforation or abscess Bilateral hip pain Social History Social History Socioeconomic History Marital status: Spouse name: Not on file Number of children: Not on file Years of education: Not on file Highest education level: Not on file Occupational History Not on file Social Needs Financial resource strain: Not on file Food insecurity Worry: Never true Inability: Never true Transportation needs Medical: Not on file Non-medical: Not on file Tobacco Use Smoking status: Current Some Day Smoker Packs/day: 0.50 Years: 20.00 Pack years: 10.00 Types: Cigarettes Start date: 05/05/1996 Smokeless tobacco: Never Used Substance and Sexual Activity Alcohol use: Yes Comment: Occassionally Drug use: No Sexual activity: Not Currently Partners: Male Lifestyle Physical activity Days per week: Not on file Minutes per session: Not on file Stress: Not on file Relationships Social connections Talks on phone: Not on file Gets together: Three times a week Attends samaritan service: Not on file Active member of club or organization: Not on file Attends meetings of clubs or organizations: Not on file Relationship status: Not on file Other Topics Concern Not on file Social History Narrative Not on file Family History Family History Problem Relation Age of Onset Heart disease Father Hypertension Father Cancer Father colon Diabetes Father Cancer Sister Breast and Canerous mole Heart disease Sister Diabetes Sister Hypertension Sister Heart disease Other Diabetes Other Thyroid disease Mother Objective Physical Exam Pulse 80 Temp 98.8 F (37.1 C) (Oral) Resp 18 Ht 6' Wt 87.1 kg (192 lb) SpO2 96% BMI 26.04 kg/m Vision/Hearing Exam:No exam data present Physical Exam Vitals signs and nursing note reviewed. Exam conducted with a food service agent present (Dara Meier RT). Constitutional: General: She is not in acute distress. Appearance: Normal appearance. She is well-developed. She is not ill-appearing, toxic-appearing or diaphoretic. HENT: Head: Normocephalic and atraumatic. Right Ear: Tympanic membrane, ear canal and external ear normal. Left Ear: Tympanic membrane, ear canal and external ear normal. Mouth/Throat: Lips: [place]. Mouth: Mucous membranes are moist. Pharynx: Uvula midline. Posterior oropharyngeal erythema present. No oropharyngeal exudate. Neck: Musculoskeletal: Neck supple. Cardiovascular: Rate and Rhythm: Normal rate and regular rhythm. Heart sounds: Normal heart sounds. Pulmonary: Effort: No respiratory distress. Breath sounds: Normal breath sounds. No wheezing or rales. Lymphadenopathy: Cervical: No cervical adenopathy. Skin: General: Skin is warm and dry. Neurological: Mental Status: She is alert and oriented to person, place, and time. Procedure Notes Procedures Results No results found for this or any previous visit (from the past 168 hour(s)). No orders to display Orders Placed This Visit Orders Placed This Encounter Procedures COVID-19, Molecular Pending COVID-19 lab result Medication List At End Of Visit Current Outpatient Medications Medication Sig Dispense Refill levothyroxine (SYNTHROID, LEVOTHROID) 125 MCG tablet TAKE 1 TABLET DAILY 90 tablet 4 multivitamin (multivitamin) per tablet Take 1 tablet by mouth daily . omega-3 fatty acids-fish oil 340-1,000 mg cap Take 1 capsule by mouth daily . albuterol 90 mcg/actuation inhaler Inhale 2 (two) puffs every 6 (six) hours as needed for wheezing . 1 Inhaler 0 benzonatate (Tessalon Perles) 100 MG capsule Take one or two capsules every 8 hours as needed for cough. Do not chew. . 60 capsule 1 fluticasone propionate (FLONASE) 50 mcg/actuation nasal spray Instill 2 (two) sprays into each nostril daily . 16 g 0 meloxicam (MOBIC) 15 MG tablet Take 1 (one) tablet (15 mg total) by mouth daily . (Patient not taking: Reported on 12/06/2019 .) 20 tablet 1 No current facility-administered medications for this visit. Patient Instructions Upper Respiratory Infection (Cold): Care Instructions Your Care Instructions An upper respiratory infection, or URI, is an infection of the nose, sinuses, or throat. URIs are spread by coughs, sneezes, and direct contact. The common cold is the most frequent kind of URI. The flu and sinus infections are other kinds of URIs. Almost all URIs are caused by viruses. Antibiotics won't cure them. But you can treat most infections with home care. This may include drinking lots of fluids and taking jwpx-gvf-lijdceq pain medicine. You will probably feel better in 4 to 10 days. The doctor has checked you carefully, but problems can develop later. If you notice any problems ornew symptoms, get medical treatment right away. Follow-up care is a argueta part of your treatment and safety. Be sure to make and go to all appointments, and call your doctor if you are having problems. It's also a good idea to know your test resultsand keep a list of the medicines you take. How can you care for yourself at home? To prevent dehydration, drink plenty of fluids, enough so that your urine is light yellow or clear like water. Choose water and other caffeine-free clear liquids until you feel better. If you have kidney, heart, or liver disease and have to limit fluids, talk with your doctor before you increase the amount of fluids you drink. Take an oqzr-apj-zmxoqed pain medicine, such as acetaminophen (Tylenol), ibuprofen (Advil, Motrin),or naproxen (Aleve). Read and follow all instructions on the label. Before you use cough and cold medicines, check the label. These medicines may not be safe for youngchildren or for people with certain health problems. Be careful when taking eqfb-bbu-aytnfhz cold or flu medicines and Tylenol at the same time. Many ofthese medicines have acetaminophen, which is Tylenol. Read the labels to make sure that you are nottaking more than the recommended dose. Too much acetaminophen (Tylenol) can be harmful. Get plenty of rest. Do not smoke or allow others to smoke around you. If you need help quitting, talk to your doctor about stop-smoking programs and medicines. These can increase your chances of quitting for good. When should you call for help? [id number] anytime you think you may need emergency care. For example, call if: You have severe trouble breathing. Call your doctor now or seek immediate medical care if: You seem to be getting much sicker. You have new or worse trouble breathing. You have a new or higher fever. You have a new rash. Watch closely for changes in your health, and be sure to contact your doctor if: You have a new symptom, such as a sore throat, an earache, or sinus pain. You cough more deeply or more often, especially if you notice more mucus or a change in the color of your mucus. You do not get better as expected. Where can you learn more? Log into your personal health record on https://GlobeInhart.Powered and enter K520 in the Education box to learn more about Upper Respiratory Infection (Cold): Care Instructions. Current as of: July 22, 2019 Content Version: 12.5 [employer]. Care instructions adapted under license by your healthcare professional. If you have questions about a medical condition or this instruction, always ask your healthcare professional. [employer] disclaims any warranty or liability for your use of this information. Coronavirus (COVID-19): Care Instructions Overview The coronavirus disease (COVID-19) is caused by a virus. Symptoms may include a fever, a cough, andshortness of breath. It mainly spreads pwoapn-nm-rhvwwk through droplets from coughing and sneezing. The virus also can spread when people are in close contact with someone who is infected. Most people have mild symptoms and can take care of themselves at home. If their symptoms get worse, they may need care in a hospital. There is no medicine to fight the virus. It's important to not spread the virus to others. If you have COVID-19, wear a face cover anytime you are around other people. You need to isolate yourself while you are sick. Your doctor or local public health official will tell you when you no longer need to be isolated. Leave your home only if you need to get medical care. Follow-up care is a argueta part of your treatment and safety. Be sure to make and go to all appointments, and call your doctor if you are having problems. It's also a good idea to know your test resultsand keep a list of the medicines you take. How can you care for yourself at home? Get extra rest. It can help you feel better. Drink plenty of fluids. This helps replace fluids lost from fever. Fluids also help ease a scratchythroat. Water, soup, fruit juice, and hot tea with lemon are good choices. Take acetaminophen (such as Tylenol) to reduce a fever. It may also help with muscle aches. Read and follow all instructions on the label. Sponge your body with lukewarm water to help with fever. Don't use cold water or ice. Use petroleum jelly on sore skin. This can help if the skin around your nose and lips becomes sore from rubbing a lot with tissues. Tips for isolation Wear a cloth face cover when you are around other people. It can help stop the spread of the virus when you cough or sneeze. Limit contact with people in your home. If possible, stay in a separate bedroom and use a separate bathroom. If you have to leave home, avoid crowds and try to stay at least 6 feet away from other people. Avoid contact with pets and other animals. Cover your mouth and nose with a tissue when you cough or sneeze. Then throw it in the trash right away. Wash your hands often, especially after you cough or sneeze. Use soap and water, and scrub for at least 20 seconds. If soap and water aren't available, use an alcohol-based hand pulp beater. Don't share personal household items. These include bedding, towels, cups and glasses, and eating utensils. Wash laundry in the warmest water allowed for the fabric type, and dry it completely.It's okay to wash other people's laundry with yours. Clean and disinfect your home every day. Use household associate professor of theatre and disinfectant wipes or sprays. Take special care to clean things that you grab with your hands. These include doorknobs, remote controls, phones, and handles on your refrigerator and microwave. And don't forget countertops, tabletops, bathrooms, and computer keyboards. When should you call for help? [id number] anytime you think you may need emergency care. For example, call if you have life-threatening symptoms, such as: You have severe trouble breathing. (You can't talk at all.) You have constant chest pain or pressure. You are severely dizzy or lightheaded. You are confused or can't think clearly. Your face and lips have a blue color. You pass out (lose consciousness) or are very hard to wake up. Call your doctor now or seek immediate medical care if: You have moderate trouble breathing. (You can't speak a full sentence.) You are coughing up blood (more than about 1 teaspoon). You have signs of low blood pressure. These include feeling lightheaded; being too weak to stand; and having cold, pale, clammy skin. Watch closely for changes in your health, and be sure to contact your doctor if: Your symptoms get worse. You are not getting better as expected. Call before you go to the doctor's office. Follow their instructions. And wear a cloth face cover. Current as of: October 25, 2019 Content Version: 12.5 [employer]. Care instructions adapted under license by your healthcare professional. If you have questions about a medical condition or this instruction, always ask your healthcare professional. [employer] disclaims any warranty or liability for your use of this information. Learning About Benefits From Quitting Smoking How does quitting smoking make you healthier? If you're thinking about quitting smoking, you may have a few reasons to be smoke-free. Your healthmay be one of them. When you quit smoking, you lower your risks for cancer, lung disease, heart attack, stroke, blood vessel disease, and blindness from macular degeneration. When you're smoke-free, you get sick less often, and you heal faster. You are less likely to get colds, flu, bronchitis, and pneumonia. As a nonsmoker, you may find that your mood is better and you are less stressed. When and how will you feel healthier? Quitting has real health benefits that start from day 1 of being smoke-free. And the longer you stay smoke-free, the healthier you get and the better you feel. The first hours After just 20 minutes, your blood pressure and heart rate go down. That means there's less stress on your heart and blood vessels. Within 12 hours, the level of carbon monoxide in your blood drops back to normal. That makes room for more oxygen. With more oxygen in your body, you may notice that you have more energy than when you smoked. After 2 weeks Your lungs start to work better. Your risk of heart attack starts to drop. After 1 month When your lungs are clear, you cough less and breathe deeper, so it's easier to be active. Your sense of taste and smell return. That means you can enjoy food more than you have since you started smoking. Over the years Over the years, your risks of heart disease, heart attack, and stroke are lower. After 10 years, your risk of dying from lung cancer is cut by about half. And your risk for many other types of cancer is lower too. How would quitting help others in your life? When you quit smoking, you improve the health of everyone who now breathes in your smoke. Their heart, lung, and cancer risks drop, much like yours. They are sick less. For babies and small children, living smoke-free means they're less likely to have ear infections, pneumonia, and bronchitis. If you're a woman who is or will be someday, quitting smoking means a healthier . Children who are close to you are less likely to become adult smokers. Where can you learn more? Log into your personal health record on https://[employer]Powered and enter O319 in the Education box to learn more about Learning About Benefits From Quitting Smoking. Current as of: August 08, 2019 Content Version: 12.5 [employer]. Care instructions adapted under license by your healthcare professional. If you have questions about a medical condition or this instruction, always ask your healthcare professional. [employer] disclaims any warranty or liability for your use of this information. Isolate yourself at home until your test results are available. You will be notified of your COVID results and given further instructions. ER if you develop a high fever, shaking chills, vomiting, chest pain, shortness of breath or loss of consciousness. Please consider smoking cessation. documented in this encounter* Rebeca Kaur CNP - 12/06/2019 11:10 AM EDT Patient Name: [facility] Location: [place] [address] [place] [id number] Date Of : Date Of Visit: 1960 12/06/2019 MRN# Provider: [id number] Rebeca Kaur CNP Chief Complaint Patient presents with Cough congestion, runny nose, symptoms x 1 week Assessment & Plan 1. Close Exposure to Covid-19 Virus COVID-19, Molecular Pending COVID-19 lab result COVID-19, Molecular 2. Cough COVID-19, Molecular Pending COVID-19 lab result COVID-19, Molecular benzonatate (Tessalon Perles) 100 MG capsule 3. Wheezing albuterol 90 mcg/actuation inhaler 4. Cigarette Smoker 5. Upper respiratory tract infection, unspecified type benzonatate (Tessalon Perles) 100 MG capsule fluticasone propionate (FLONASE) 50 mcg/actuation nasal spray No follow-ups on file. Medical Decision Making Client is non-toxic in NAD. She has URI symptoms for 6 days and improving. He lungs are clear at this time with no wheezing or rales. She is a smoker. Additional Clinical Comments Educated patient and/or guardian about signs and symptoms that would warrant further immediate evaluation. Recommended that they should return to urgent care, make an appointment with their family physician, or go to the emergency room if symptoms persist or get acutely worse. Recommended follow upwithin the next week with their PCP or to get established with a PCP soon in order to follow up appropriately. [facility] COVID-19 Mask Status: Does the patient have classic COVID-19 symptoms? Yes, the patient has COVID-19 symptoms, the patient WAS wearing a mask during the visit, I (the provider) WAS wearing full PPE (N95 mask, gown, gloves, and face shield) during the visit. and [employer] Visit was utilized for this patient visit. Patient read general consent to treat, and was then asked if he/she had any questions, which were all answered satisfactorily, and patient consented verbally. Subjective 59 y.o. female presents with Cough (congestion, runny nose, symptoms x 1 week) Client with scratchy throat with low grade fever at onset and now with runny nose and cough. Clientreports employer wants to rule out COVID. Client reports her cough is improving. She has clear nasal drainage and clear sputum when cough is productive. Cough This is a new problem. The current episode started in the past 7 days. The problem has been gradually improving. The problem occurs hourly. The cough is non-productive. Associated symptoms include a fever, nasal congestion, postnasal drip, rhinorrhea and wheezing. Pertinent negatives include no chest pain, chills, ear congestion, ear pain, headaches, myalgias, rash, sore throat, shortness of breath or sweats. The symptoms are aggravated by lying down and cold air. Treatments tried: Nyquil. The treatment provided mild relief. Her past medical history is significant for bronchitis. There is no history of asthma, bronchiectasis, COPD, emphysema, environmental allergies or pneumonia. Review Of Systems Review of Systems Constitutional: Positive for fever. Negative for activity change, appetite change, chills, diaphoresis and fatigue. HENT: Positive for congestion, postnasal drip and rhinorrhea. Negative for ear pain, sinus pressure, sinus pain and sore throat. Respiratory: Positive for cough and wheezing. Negative for chest tightness and shortness of breath. Cardiovascular: Negative for chest pain. Gastrointestinal: Negative for diarrhea, nausea and vomiting. Genitourinary: Normal urination. Musculoskeletal: Negative for arthralgias and myalgias. Skin: Negative for rash. Allergic/Immunologic: Negative for environmental allergies. Neurological: Negative for headaches. Medical History Past Medical History: Diagnosis Date Anemia Appendicitis 2019 Disease of thyroid gland Hypothyroidism Hyperlipidemia Hypertension borderline Patient Active Problem List Diagnosis Hypothyroidism Hyperlipidemia Acute appendicitis with localized peritonitis and gangrene, without perforation or abscess Bilateral hip pain Social History Social History Socioeconomic History Marital status: Spouse name: Not on file Number of children: Not on file Years of education: Not on file Highest education level: Not on file Occupational History Not on file Social Needs Financial resource strain: Not on file Food insecurity Worry: Never true Inability: Never true Transportation needs Medical: Not on file Non-medical: Not on file Tobacco Use Smoking status: Current Some Day Smoker Packs/day: 0.50 Years: 20.00 Pack years: 10.00 Types: Cigarettes Start date: 05/05/1996 Smokeless tobacco: Never Used Substance and Sexual Activity Alcohol use: Yes Comment: Occassionally Drug use: No Sexual activity: Not Currently Partners: Male Lifestyle Physical activity Days per week: Not on file Minutes per session: Not on file Stress: Not on file Relationships Social connections Talks on phone: Not on file Gets together: Three times a week Attends samaritan service: Not on file Active member of club or organization: Not on file Attends meetings of clubs or organizations: Not on file Relationship status: Not on file Other Topics Concern Not on file Social History Narrative Not on file Family History Family History Problem Relation Age of Onset Heart disease Father Hypertension Father Cancer Father colon Diabetes Father Cancer Sister Breast and Canerous mole Heart disease Sister Diabetes Sister Hypertension Sister Heart disease Other Diabetes Other Thyroid disease Mother Objective Physical Exam Pulse 80 Temp 98.8 F (37.1 C) (Oral) Resp 18 Ht 6' Wt 87.1 kg (192 lb) SpO2 96% BMI 26.04 kg/m Vision/Hearing Exam:No exam data present Physical Exam Vitals signs and nursing note reviewed. Exam conducted with a food service agent present (Dara SINGER). Constitutional: General: She is not in acute distress. Appearance: Normal appearance. She is well-developed. She is not ill-appearing, toxic-appearing or diaphoretic. HENT: Head: Normocephalic and atraumatic. Right Ear: Tympanic membrane, ear canal and external ear normal. Left Ear: Tympanic membrane, ear canal and external ear normal. Mouth/Throat: Lips: [place]. Mouth: Mucous membranes are moist. Pharynx: Uvula midline. Posterior oropharyngeal erythema present. No oropharyngeal exudate. Neck: Musculoskeletal: Neck supple. Cardiovascular: Rate and Rhythm: Normal rate and regular rhythm. Heart sounds: Normal heart sounds. Pulmonary: Effort: No respiratory distress. Breath sounds: Normal breath sounds. No wheezing or rales. Lymphadenopathy: Cervical: No cervical adenopathy. Skin: General: Skin is warm and dry. Neurological: Mental Status: She is alert and oriented to person, place, and time. Procedure Notes Procedures Results No results found for this or any previous visit (from the past 168 hour(s)). No orders to display Orders Placed This Visit Orders Placed This Encounter Procedures COVID-19, Molecular Pending COVID-19 lab result Medication List At End Of Visit Current Outpatient Medications Medication Sig Dispense Refill levothyroxine (SYNTHROID, LEVOTHROID) 125 MCG tablet TAKE 1 TABLET DAILY 90 tablet 4 multivitamin (multivitamin) per tablet Take 1 tablet by mouth daily . omega-3 fatty acids-fish oil 340-1,000 mg cap Take 1 capsule by mouth daily . albuterol 90 mcg/actuation inhaler Inhale 2 (two) puffs every 6 (six) hours as needed for wheezing . 1 Inhaler 0 benzonatate (Tessalon Perles) 100 MG capsule Take one or two capsules every 8 hours as needed for cough. Do not chew. . 60 capsule 1 fluticasone propionate (FLONASE) 50 mcg/actuation nasal spray Instill 2 (two) sprays into each nostril daily . 16 g 0 meloxicam (MOBIC) 15 MG tablet Take 1 (one) tablet (15 mg total) by mouth daily . (Patient not taking: Reported on 12/06/2019 .) 20 tablet 1 No current facility-administered medications for this visit. Patient Instructions Upper Respiratory Infection (Cold): Care Instructions Your Care Instructions An upper respiratory infection, or URI, is an infection of the nose, sinuses, or throat. URIs are spread by coughs, sneezes, and direct contact. The common cold is the most frequent kind of URI. The flu and sinus infections are other kinds of URIs. Almost all URIs are caused by viruses. Antibiotics won't cure them. But you can treat most infections with home care. This may include drinking lots of fluids and taking ufnm-fjg-rtuefpr pain medicine. You will probably feel better in 4 to 10 days. The doctor has checked you carefully, but problems can develop later. If you notice any problems ornew symptoms, get medical treatment right away. Follow-up care is a argueta part of your treatment and safety. Be sure to make and go to all appointments, and call your doctor if you are having problems. It's also a good idea to know your test resultsand keep a list of the medicines you take. How can you care for yourself at home? To prevent dehydration, drink plenty of fluids, enough so that your urine is light yellow or clear like water. Choose water and other caffeine-free clear liquids until you feel better. If you have kidney, heart, or liver disease and have to limit fluids, talk with your doctor before you increase the amount of fluids you drink. Take an ewta-npz-poegcdn pain medicine, such as acetaminophen (Tylenol), ibuprofen (Advil, Motrin),or naproxen (Aleve). Read and follow all instructions on the label. Before you use cough and cold medicines, check the label. These medicines may not be safe for youngchildren or for people with certain health problems. Be careful when taking utll-qxh-qbycpmx cold or flu medicines and Tylenol at the same time. Many ofthese medicines have acetaminophen, which is Tylenol. Read the labels to make sure that you are nottaking more than the recommended dose. Too much acetaminophen (Tylenol) can be harmful. Get plenty of rest. Do not smoke or allow others to smoke around you. If you need help quitting, talk to your doctor about stop-smoking programs and medicines. These can increase your chances of quitting for good. When should you call for help? [id number] anytime you think you may need emergency care. For example, call if: You have severe trouble breathing. Call your doctor now or seek immediate medical care if: You seem to be getting much sicker. You have new or worse trouble breathing. You have a new or higher fever. You have a new rash. Watch closely for changes in your health, and be sure to contact your doctor if: You have a new symptom, such as a sore throat, an earache, or sinus pain. You cough more deeply or more often, especially if you notice more mucus or a change in the color of your mucus. You do not get better as expected. Where can you learn more? Log into your personal health record on https://[employer] and enter K520 in the Education box to learn more about Upper Respiratory Infection (Cold): Care Instructions. Current as of: July 22, 2019 Content Version: 12.5 [employer]. Care instructions adapted under license by your healthcare professional. If you have questions about a medical condition or this instruction, always ask your healthcare professional. [employer] disclaims any warranty or liability for your use of this information. Coronavirus (COVID-19): Care Instructions Overview The coronavirus disease (COVID-19) is caused by a virus. Symptoms may include a fever, a cough, andshortness of breath. It mainly spreads jnjjqx-gi-eiqsuu through droplets from coughing and sneezing. The virus also can spread when people are in close contact with someone who is infected. Most people have mild symptoms and can take care of themselves at home. If their symptoms get worse, they may need care in a hospital. There is no medicine to fight the virus. It's important to not spread the virus to others. If you have COVID-19, wear a face cover anytime you are around other people. You need to isolate yourself while you are sick. Your doctor or local public health official will tell you when you no longer need to be isolated. Leave your home only if you need to get medical care. Follow-up care is a argueta part of your treatment and safety. Be sure to make and go to all appointments, and call your doctor if you are having problems. It's also a good idea to know your test resultsand keep a list of the medicines you take. How can you care for yourself at home? Get extra rest. It can help you feel better. Drink plenty of fluids. This helps replace fluids lost from fever. Fluids also help ease a scratchythroat. Water, soup, fruit juice, and hot tea with lemon are good choices. Take acetaminophen (such as Tylenol) to reduce a fever. It may also help with muscle aches. Read and follow all instructions on the label. Sponge your body with lukewarm water to help with fever. Don't use cold water or ice. Use petroleum jelly on sore skin. This can help if the skin around your nose and lips becomes sore from rubbing a lot with tissues. Tips for isolation Wear a cloth face cover when you are around other people. It can help stop the spread of the virus when you cough or sneeze. Limit contact with people in your home. If possible, stay in a separate bedroom and use a separate bathroom. If you have to leave home, avoid crowds and try to stay at least 6 feet away from other people. Avoid contact with pets and other animals. Cover your mouth and nose with a tissue when you cough or sneeze. Then throw it in the trash right away. Wash your hands often, especially after you cough or sneeze. Use soap and water, and scrub for at least 20 seconds. If soap and water aren't available, use an alcohol-based hand pulp beater. Don't share personal household items. These include bedding, towels, cups and glasses, and eating utensils. Wash laundry in the warmest water allowed for the fabric type, and dry it completely.It's okay to wash other people's laundry with yours. Clean and disinfect your home every day. Use household associate professor of theatre and disinfectant wipes or sprays. Take special care to clean things that you grab with your hands. These include doorknobs, remote controls, phones, and handles on your refrigerator and microwave. And don't forget countertops, tabletops, bathrooms, and computer keyboards. When should you call for help? [id number] anytime you think you may need emergency care. For example, call if you have life-threatening symptoms, such as: You have severe trouble breathing. (You can't talk at all.) You have constant chest pain or pressure. You are severely dizzy or lightheaded. You are confused or can't think clearly. Your face and lips have a blue color. You pass out (lose consciousness) or are very hard to wake up. Call your doctor now or seek immediate medical care if: You have moderate trouble breathing. (You can't speak a full sentence.) You are coughing up blood (more than about 1 teaspoon). You have signs of low blood pressure. These include feeling lightheaded; being too weak to stand; and having cold, pale, clammy skin. Watch closely for changes in your health, and be sure to contact your doctor if: Your symptoms get worse. You are not getting better as expected. Call before you go to the doctor's office. Follow their instructions. And wear a cloth face cover. Current as of: October 25, 2019 Content Version: 12.5 [employer]. Care instructions adapted under license by your healthcare professional. If you have questions about a medical condition or this instruction, always ask your healthcare professional. [employer] disclaims any warranty or liability for your use of this information. Learning About Benefits From Quitting Smoking How does quitting smoking make you healthier? If you're thinking about quitting smoking, you may have a few reasons to be smoke-free. Your healthmay be one of them. When you quit smoking, you lower your risks for cancer, lung disease, heart attack, stroke, blood vessel disease, and blindness from macular degeneration. When you're smoke-free, you get sick less often, and you heal faster. You are less likely to get colds, flu, bronchitis, and pneumonia. As a nonsmoker, you may find that your mood is better and you are less stressed. When and how will you feel healthier? Quitting has real health benefits that start from day 1 of being smoke-free. And the longer you stay smoke-free, the healthier you get and the better you feel. The first hours After just 20 minutes, your blood pressure and heart rate go down. That means there's less stress on your heart and blood vessels. Within 12 hours, the level of carbon monoxide in your blood drops back to normal. That makes room for more oxygen. With more oxygen in your body, you may notice that you have more energy than when you smoked. After 2 weeks Your lungs start to work better. Your risk of heart attack starts to drop. After 1 month When your lungs are clear, you cough less and breathe deeper, so it's easier to be active. Your sense of taste and smell return. That means you can enjoy food more than you have since you started smoking. Over the years Over the years, your risks of heart disease, heart attack, and stroke are lower. After 10 years, your risk of dying from lung cancer is cut by about half. And your risk for many other types of cancer is lower too. How would quitting help others in your life? When you quit smoking, you improve the health of everyone who now breathes in your smoke. Their heart, lung, and cancer risks drop, much like yours. They are sick less. For babies and small children, living smoke-free means they're less likely to have ear infections, pneumonia, and bronchitis. If you're a woman who is or will be someday, quitting smoking means a healthier . Children who are close to you are less likely to become adult smokers. Where can you learn more? Log into your personal health record on https://[employer] and enter O319 in the Education box to learn more about Learning About Benefits From Quitting Smoking. Current as of: August 08, 2019 Content Version: 12.5 [employer]. Care instructions adapted under license by your healthcare professional. If you have questions about a medical condition or this instruction, always ask your healthcare professional. [employer] disclaims any warranty or liability for your use of this information. Isolate yourself at home until your test results are available. You will be notified of your COVID results and given further instructions. ER if you develop a high fever, shaking chills, vomiting, chest pain, shortness of breath or loss of consciousness. Please consider smoking cessation. documented in this encounter* Fuad Pisano, PT - 04/08/2019 5:30 PM EST [facility] Evaluation Today's Date 04/09/2019 Patient Name: [place] Date of : 1960 Case Name: bilateral hip pain Functional Diagnosis: 1. Hip pain, bilateral 2. Bilateral hip pain Clinical Information: Subjective Referring Diagnosis: B hip pain History of Present Illness Chief Complaint/ Mechanism of Injury: Pt reports that she's been dealing with bilateral hip pain for a couple of years. Reports that nobody was able to tell her what the hip pain was until Dr Roy told her it was bursitis. Reports that she has been pretty limited with her walking ability (distances / inclines). Pt reports that her pain is burning in nature (right on the side of the hips). Some nights it hurts to lay on the sides and sometimes not. Pt reports that this has really slowed her down. Reports that she used to walk 7 miles daily and goto [employer]. Now she isn't able to do any of this. 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 Previous Treatment for this condition: Injections Prior treatment effectiveness: moderate (short term) Previous Imaging: X-ray Pain Scale: Average Pain: 3/10 Pain at highest: 8/10 Aggravating factors: ambulation distances / inclines Easing factors: cortisone injection (short term) Functional Status Functional Limitations: limited mobility, standing and recent decline in level of ADL Premorbid Functional Level: Patient reported Current Functional Level: see outcome tool Daily activity scale: low active Prior level of function: very active Sleep Assessment Sleep disturbance: no Sleep Disturbance Red Flags: None Barriers to Care: None Fall risk screening Fallen 2 or more times in the last 12 months: No Injured as a result of a fall in the last 12 months: No Personal Goals: Decrease her hip pain and get back to exercise Social History Amish, social, or cultural considerations to be made aware of before starting treatment: No Hip Right Hip Tenderness: greater trochanter and piriformis glute attachment site (-) ITB Muscle Strength: Extension: 4- Abduction: 4- (pain) Special Tests Nadine: Positive Scour: Negative Left Hip Tenderness: greater trochanter and piriformis glute attachment site (-) ITB Muscle Strength: Extension: 4- Abduction: 4- (pain) Special Tests Nadine: Positive Scour: Negative Gait - unremarkable Squat - poor form (knees advancing too far over toes, decreased depth) SLS bilateral 5-8s Treatments: Physical Therapy Exercise Log - 04/09/19 0727 OTHER Notes Supervising PT Fuad Krystin Therapeutic Exercise ([id number]) Intervention SciFit Parameters PT performed STM glutes bilaterally Intervention glute / piriformis stretch Parameters Supine bridge Intervention SLR extension Parameters sidelying clamshells Intervention SLR abduction (pillows under top leg to keep it at neutral) Parameters standing knee on stool hip ER / IR AROM B Treatment Plan: Frequency of Visits: twice per week Duration: 4 weeks Interventions: Therapeutic Exercise, Neuromuscular Re-Education, Manual Therapy and Therapeutic/ Functional Activities Rehab Potential: fair Goals: Physical Therapy Ortho Goals: OTHER: Patient will increase FOTO score to at least 61 to show MDC/MCII and expected functional outcome in 4 weeks. Pt will demonstrate improved glute strength to at least 4+/5 bilaterally allowing for ease of stairnegotiation / distance ambulation. 4 weeks. Pt will report decreased bilateral hip pain by at least 50% allowing for ease of ADLs and help pt return to recreational exercise. 4 weeks. IE date: 04/08/2019 Progress report due: Recert due: visit #8 Patient Education provided: Anatomy Clinical Impression: Pt presents to PT with symptoms consistent with bilateral glute tendinopathy (vs trochanteric bursitis). Pt will benefit from skilled PT intervention to help address impairments to improve functional abilities Fuad Pisano PT STATE LICENSE, [id number] documented in this encounter* Tisha Do, YEVGENIY - 04/22/2019 5:30 PM EST [facility] OUTPATIENT REHABILITATION DAILY TREATMENT NOTE Today's Date 04/22/2019 Patient Name: Scott Obregon Date of : 1960 Current Visit #: 5 Authorized Visits: 60 Case Name: bilateral hip pain History: Pre-Treatment Pain Scale: 4-5 with inclines Symptoms: gradually improved Functional Diagnosis: 1. Bilateral hip pain Clinical Information: Subjective: Pt reports she felt better after last session. Pt reports inclines are the hardest for her and she often doesn't do activities because she is afraid of pain. Objective Included ITB STM to decrease tightness. Continued with LE strengthening and stretches to improve function. Treatments: Physical Therapy Exercise Log - 04/22/19 6446 OTHER Precautions/Contraindications 535-6:18 concurrent care Notes Supervising PT Fuad 8 Therapeutic Exercise (15092) Intervention SciFit L2, 5 minutes Parameters PT performed STM glutes bilaterally, utilized baseball today on plinth for self release 8' total Intervention glute / piriformis stretch 10x10 each (B) Parameters Supine bridge 10X2 3 hold Intervention SLR extension (B) 10x2 Parameters sidelying clamshells 10x Intervention SLR abduction (pillows under top leg to keep it at neutral) x10 B Parameters standing knee on stool hip ER / IR AROM B 2x10 each direction Intervention ITB STM with foam roll, 10' total (5 on each side) PT Treatment Times Therex Total Time 15 Manual Therapy Total Time 10 Direct Treatment Time 25 Total Treatment Time 42 Goals: Physical Therapy Ortho Goals: OTHER: Patient will increase FOTO score to at least 61 to show MDC/MCII and expected functional outcome in 4 weeks. Pt will demonstrate improved glute strength to at least 4+/5 bilaterally allowing for ease of stairnegotiation / distance ambulation. 4 weeks. Pt will report decreased bilateral hip pain by at least 50% allowing for ease of ADLs and help pt return to recreational exercise. 4 weeks. IE date: 04/08/2019 Progress report due: Recert due: visit #8 Patient Education: Verbal HEP with patient verbalized understanding. Post-Treatment Pain Scale: sore Assessment: Patient had an expected response to treatment. Did not have time to complete glute STM and held on two exercises d/t spending more time on ITB STM. Pt stated she would use softball on glutes at home anyways. Skilled Intervention demonstrated by modifications of treatment per exercise log including assessment of patient's response and safety interventions per exercise log. Progress towards goals as expected. Plan for Next Visit: Resume glute STM and all LE strengthening as able. Tisha Do PTA STATE LICENSE, [id number] documented in this encounter* Bambi Huynh MD - 09/14/2018 4:27 PM EDT Phone discussion with patient after results of her preliminary labs show normal urinalysis inconsistent with UTI or kidney stone. White blood cell count elevated with some left shift. Patient feels about the same as she did when she was in the office earlier this afternoon. I recommend she attend local emergency room for consideration of CT scan looking for appendicitis versus ovarian cyst versusother. She plans to attend either [facility] or [facility]. documented in this encounter* Bambi Huynh MD - 01/14/2019 4:29 PM EDT [facility] [address] [place], [place] [address] Scott Obregon 1960 [id number] HPI: 58-year-old female with hypothyroidism, hyperlipidemia, bilateral hip pain presents. Hypothyroidism of several years duration. TSH levels have been normal the last couple years. Most recent TSH level has risen above 5. Patient may have missed a few doses over the past several weeks as she has struggled with her father's in her own appendicitis. She is euthyroid clinically. Bilateral hip pain. Has been present for a couple months. Saw orthopedics. Corticosteroid shots helped temporarily. Pain is not gone. No sciatica or radiation. No preceding trauma. Pain not worse with weightbearing. Hyperlipidemia. Takes no medication. Did lose some weight since last winter. Lipids reviewed today and improved over those last tested. Not anxious to consider statin medication for primary prevention. Medications: Current Outpatient Medications Medication Sig Dispense Refill levothyroxine (SYNTHROID, LEVOTHROID) 125 MCG tablet Take 1 (one) tablet (125 mcg total) by mouth once daily . 90 tablet 3 multivitamin (multivitamin) per tablet Take 1 tablet by mouth daily . omega-3 fatty acids-fish oil 340-1,000 mg cap Take 1 capsule by mouth daily . meloxicam (MOBIC) 15 MG tablet Take 1 (one) tablet (15 mg total) by mouth daily . 20 tablet 1 No current facility-administered medications for this visit. Allergies: Allergies Allergen Reactions Iodine And Iodide Containing Products GI Intolerance Seafood, Vomiting Problem List Items Addressed This Visit Endocrine Hypothyroidism - Primary Relevant Orders TSH Other Hyperlipidemia Other Visit Diagnoses Hip pain, bilateral Relevant Medications meloxicam (MOBIC) 15 MG tablet Social History Socioeconomic History Marital status: Spouse name: Not on file Number of children: Not on file Years of education: Not on file Highest education level: Not on file Occupational History Not on file Social Needs Financial resource strain: Not on file Food insecurity: Worry: Never true Inability: Never true Transportation needs: Medical: Not on file Non-medical: Not on file Tobacco Use Smoking status: Former Smoker Packs/day: 0.50 Years: 20.00 Pack years: 10.00 Types: Cigarettes Start date: 05/05/1996 Smokeless tobacco: Never Used Substance and Sexual Activity Alcohol use: Yes Comment: Occassionally Drug use: No Sexual activity: Never Lifestyle Physical activity: Days per week: Not on file Minutes per session: Not on file Stress: Not on file Relationships Social connections: Talks on phone: Not on file Gets together: Three times a week Attends samaritan service: Not on file Active member of club or organization: Not on file Attends meetings of clubs or organizations: Not on file Relationship status: Not on file Other Topics Concern Not on file Social History Narrative Not on file ROS: As above Vision and Hearing: No impairment other than wearing glasses Physical Exam: Vitals: 01/14/19 1348 BP: 130/76 BP Location: Right arm Patient Position: Sitting BP Cuff Size: X-large Adult Pulse: 75 Temp: 98.4 F (36.9 C) TempSrc: Oral SpO2: 96% Weight: 87.9 kg (193 lb 12.8 oz) Patient's in no acute distress. Her cardiac tones are regular and her rates normal. Her lungs are free of wheezes and rales. She has no peripheral edema in feet or ankles. She has tenderness over thegreater trochanter of each hip left slightly more than right. She walks with a normal gait. Impression/Plan: Hypothyroidism. TSH has risen. Discussed importance of medication compliance. Recheck TSH in 6 to 8weeks before changing the dose. Hyperlipidemia. She is trying to manage with some supplements and with dieting. Trying to avoid statin therapy for primary prevention. Discussed importance of exercise. Hip pain. Likely bursitis. Interferes with ability to exercise. Add meloxicam 15 mg daily with food. Advised heat to the area for 15 to 20 minutes several times a day. Discussed physical therapy as she would like to avoid additional injections. For any new medications prescribed today, patient was educated about indications for the medication, how to take the medication and potential side effects of the medications. Return in about 8 weeks (around 03/11/2019). Bambi Huynh MD documented in this encounter* Tisha Do, RECYCLING TECHNICIAN - 04/15/2019 5:30 PM EST [facility] OUTPATIENT REHABILITATION DAILY TREATMENT NOTE Today's Date 04/15/2019 Patient Name: Scott Obregon Date of : 1960 Current Visit #: 3 Authorized Visits: 60 Case Name: bilateral hip pain History: Pre-Treatment Pain Scale: 0 static, exercise 4-5 Symptoms: stabilized Functional Diagnosis: 1. Bilateral hip pain Clinical Information: Subjective: Pt has a lot of glute soreness from last session, R side is the worst. Pt reports consistency with HEP over the weekend and just has a lot of soreness after doing the exercises. Objective Held on bike d/t pt feeling it irritated her last session. Continued with LE stretches and strengthening to improve function. Included self STM with baseball to relieve glute tightness. Treatments: Physical Therapy Exercise Log - 04/15/19 8753 OTHER Precautions/Contraindications 535-6:17 concurrent Notes Supervising PT Fuad 8 Therapeutic Exercise (62634) Intervention SciFit L2, 5 minutes NT Parameters PT performed STM glutes bilaterally (NV) Intervention glute / piriformis stretch 10x10 each (B) HEP Parameters Supine bridge 10X2 3 hold HEP Intervention SLR extension (B) 10x2 HEP Parameters sidelying clamshells 10x2 HEP Intervention SLR abduction (pillows under top leg to keep it at neutral) (NV) Parameters standing knee on stool hip ER / IR AROM B 2x10 each direction PT Treatment Times Therex Total Time 20 Direct Treatment Time 20 Total Treatment Time 42 Goals: Physical Therapy Ortho Goals: OTHER: Patient will increase FOTO score to at least 61 to show MDC/MCII and expected functional outcome in 4 weeks. Pt will demonstrate improved glute strength to at least 4+/5 bilaterally allowing for ease of stairnegotiation / distance ambulation. 4 weeks. Pt will report decreased bilateral hip pain by at least 50% allowing for ease of ADLs and help pt return to recreational exercise. 4 weeks. IE date: 04/08/2019 Progress report due: Recert due: visit #8 Patient Education: Verbal HEP and Diagnosis and recovery specific education with patient verbalizedunderstanding. Post-Treatment Pain Scale: 2-3 Assessment: Patient had an expected response to treatment. AROM IR is more limited than ER. Pt consistently has more issues with R LE than LLE (tightness/pain). Skilled Intervention demonstrated by modifications of treatment per exercise log including increased mobility and assessment of patient's response and safety interventions per exercise log. Progress towards goals as expected. Plan for Next Visit: Continue per POC. Tisha Do PTA STATE LICENSE, [id number] documented in this encounter* Tisha Do PTA - 04/29/2019 5:30 PM EST [facility] OUTPATIENT REHABILITATION DAILY TREATMENT NOTE Today's Date 04/29/2019 Patient Name: Scott Obregon Date of : 1960 Current Visit #: 7 Authorized Visits: 60 Case Name: bilateral hip pain History: Pre-Treatment Pain Scale: 1 Symptoms: gradually improved Functional Diagnosis: 1. Bilateral hip pain Clinical Information: Subjective: Pt states she has been more aware of her activity and tries to avoid the things that irritate her. Pt reports her R LE hurts worse overall but she does feel like she can do more without pain. Objective Progressed sets with SLR abd and included lateral ambulation. Continued with piriformis and ITB STM for BLE for sxs relief. Treatments: Physical Therapy Exercise Log - 04/29/19 2927 OTHER Notes Supervising PT Fuad Mcclelland Vitals 5:35-6:25 Therapeutic Exercise (60736) Intervention SciFit L2, 5 minutes Parameters PT performed STM glutes bilaterally, utilized baseball today on plinth for self release 8' total Intervention glute / piriformis stretch 10x10 each (B) Parameters Supine bridge 10X2 3 hold Intervention SLR extension (B) 10x2 Parameters sidelying clamshells 10x2 Intervention SLR abduction 2x10 B Parameters standing knee on stool hip ER / IR AROM B 2x10 each direction Intervention ITB STM with foam roll, 10' total (5 on each side) Parameters piriformis pin and stretch 10x5 BLE Intervention lateral ambulation 30 ft x 1 lap PT Treatment Times Therex Total Time 30 Manual Therapy Total Time 15 Modalities Total Time -- Direct Treatment Time 45 Total Treatment Time 50 Goals: Physical Therapy Ortho Goals: OTHER: Patient will increase FOTO score to at least 61 to show MDC/MCII and expected functional outcome in 4 weeks. Pt will demonstrate improved glute strength to at least 4+/5 bilaterally allowing for ease of stairnegotiation / distance ambulation. 4 weeks. Pt will report decreased bilateral hip pain by at least 50% allowing for ease of ADLs and help pt return to recreational exercise. 4 weeks. IE date: 04/08/2019 Progress report due: Recert due: visit #8 Patient Education: Verbal HEP with patient verbalized understanding. Post-Treatment Pain Scale: 0 Assessment: Patient had an expected response to treatment. Pt is responding well to interventions. Continues to be tender to B piriformis and ITB but able to tolerate increased pressure during STM this date. Skilled Intervention demonstrated by modifications of treatment per exercise log including increased intensity, increased volume and assessment of patient's response and safety interventions per exercise log. Progress towards goals as expected. Plan for Next Visit: Next visit is last appt. Pt is unsure if she wants to continue with PT or not,it is helping and feels like the manual is making a difference. Tisha Do PTA STATE LICENSE, [id number] documented in this encounter* Bambi Huynh MD - 03/25/2019 4:39 PM EDT [facility] [address] [place] [address] Scott Obregon 1960 [id number] HPI: Return visit. Patient with hypothyroidism. Has been more compliant with levothyroxine of late and TSH has improved to 4.0. Euthyroid clinically at this time. Patient recently tried some meloxicam for her bilateral hip pain. She had previously had corticosteroid injections which did not seem to help. Today she reports a partial response or improvement in her symptoms. She lists her current pain level as 3 4/10. She is interested in being a bit more aggressive yet. Medications: Current Outpatient Medications Medication Sig Dispense Refill levothyroxine (SYNTHROID, LEVOTHROID) 125 MCG tablet Take 1 (one) tablet (125 mcg total) by mouth once daily . 90 tablet 3 meloxicam (MOBIC) 15 MG tablet Take 1 (one) tablet (15 mg total) by mouth daily . 20 tablet 1 multivitamin (multivitamin) per tablet Take 1 tablet by mouth daily . omega-3 fatty acids-fish oil 340-1,000 mg cap Take 1 capsule by mouth daily . No current facility-administered medications for this visit. Allergies: Allergies Allergen Reactions Iodine And Iodide Containing Products GI Intolerance Seafood, Vomiting Problem List Items Addressed This Visit Endocrine Hypothyroidism - Primary Other Visit Diagnoses Hip pain, bilateral Relevant Medications meloxicam (MOBIC) 15 MG tablet Other Relevant Orders Ambulatory ref to Therapy (PT/OT/ST) ROS: As above. See prior notes. Vision and Hearing: Wears glasses Physical Exam: Vitals: 03/25/19 1416 BP: 135/83 BP Location: Right arm Patient Position: Sitting BP Cuff Size: Adult Pulse: 82 Resp: 17 Temp: 98 F (36.7 C) TempSrc: Oral SpO2: 98% Weight: 90.9 kg (200 lb 4.8 oz) Height: 6' Patient can arise out of the chair without difficulty. She can walk about the room without pain. She has minimal discomfort behind the greater trochanter. She gets some pain with abduction of the left leg as her left side is more bothersome than right. Impression/Plan: Bilateral hip/back pain. Still suspicious this is bursitis. Continue meloxicam but trial of physical therapy. Patient does not want to return to orthopedics at this time. Hypothyroidism. TSH has improved with compliance. Continue present dose of levothyroxine For any new medications prescribed today, patient was educated about indications for the medication, how to take the medication and potential side effects of the medications. Return in about 6 months (around 09/24/2019). Bambi Huynh MD documented in this encounter Hospital Course * Татьяна Jenkins MD - 09/15/2018 9:55 AM EDT DISCHARGE SUMMARY Patient: Scott Obregon Date of : 1960 Site: [facility] Family Provider: Bambi Huynh MD Admit Date: 09/14/2018 Discharge Date/Time: 09/15/18 Disposition: home Clinical Summary Hospital Course: Scott Obregon is a 58 y.o. female patient of Bambi Huynh MD with a history of acuteappendicitis Discharge Diagnoses: acute appendicitis Surgeries: 09/14/18 APPENDECTOMY LAPAROSCOPIC Consults: Procedures Hospitalize Patient To : Allergies: Iodine and iodide containing products Discharge Diet: regular Condition: stable Discharge Medications: Current Discharge Medication List START taking these medications Details docusate sodium (COLACE) 100 MG capsule Take 1 (one) capsule (100 mg total) by mouth daily Stop taking medication when off pain medication or if having diarrhea . Qty: 30 capsule, Refills: 0 oxyCODONE-acetaminophen (PERCOCET) 5-325 mg per tablet Take 1 (one) tablet by mouth every 8 (eight)hours as needed for pain (Days supply per fill: 5) . Qty: 15 tablet, Refills: 0 Associated Diagnoses: Acute appendicitis with localized peritonitis and gangrene, without perforation or abscess CONTINUE these medications which have NOT CHANGED Details levothyroxine (SYNTHROID, LEVOTHROID) 125 MCG tablet Take 1 (one) tablet (125 mcg total) by mouth once daily . Qty: 90 tablet, Refills: 3 Physician(s) Family Provider: Bambi Huynh MD, Address: [facility] [address] / [facility] [address] Follow Up: No follow-up provider specified. Additional Information: Patient instructions, including activity, were given to the patient/family at discharge. Please seethe After Visit Summary in the electronic medical record for details. Time spent on discharge: < 30 minutes Completed by: Татьяна Jenkins MD on 09/15/18, 9:55 AM documented in this encounter Discharge Instructions * Discharge Instr - Wound* Татьяна Jenkins MD - 09/15/2018 10:01 AM EDT Wound instructions: keep incisions clean and dry. OK to shower. May remove outer dressings tomorrow. Steri-strips will fall off on their own. * Additional Instructions* Татьяна Jenkins MD - 09/15/2018 Learning About Appendectomy What is an appendectomy? An appendectomy is surgery to take out the appendix. This organ is a small sac that is shaped like a finger. It's attached to your large intestine. Appendicitis happens when the appendix becomes infected and inflamed. An appendectomy is the main treatment for it. If surgery is delayed, the inflamed appendix may burst. A burst appendix can cause serious health problems. If your appendix has burst, you may need an emergency surgery to remove the burst appendix. How is this surgery done? Before surgery, you will get medicine to make you sleep. Appendectomy is usually done as a laparoscopic surgery. That means it is done with only small cuts.These cuts are called incisions. The doctor puts a lighted tube, or scope, and other surgical toolsthrough the cuts in your belly. The doctor is able to see your organs with the scope. The doctor removes the appendix. The cuts heal quickly, and the scars usually fade over time. In some cases, the surgery is done through a single larger cut in the belly. This is called open surgery. What can you expect after surgery? Most people leave the hospital 1 to 3 days after surgery. Some even go home the same day. After you go home, it is normal to feel weak and tired for several days. Your belly may be swollen and may be painful. If you had laparoscopic surgery, you may have shoulder pain for about 24 hours. You may also feel sick to your stomach and have diarrhea, constipation, gas, or a headache. This usually goes away in a few days. Your recovery time depends on the type of surgery you had. If you had laparoscopic surgery, you will probably be able to go back to work or your normal routine 1 to 3 weeks after surgery. If you had an open surgery, it may take 2 to 4 weeks. If your appendix burst, you may have a drain in your incis ion. Your body will work fine without an appendix. You will not have to make any changes in your diet ordaily life. After surgery, be sure to follow your doctor's advice about problems to watch for. These may include fever, worse belly pain, or problems with your incision. Follow-up care is a argueta part of your treatment and safety. Be sure to make and go to all appointments, and call your doctor if you are having problems. It's also a good idea to know your test resultsand keep a list of the medicines you take. Where can you learn more? Log into your personal health record on https://[employer].Powered and enter J277 in the Education box to learn more about Learning About Appendectomy. Current as of: April 04, 2018 Content Version: 12.0 9582-4660 [employer]. Care instructions adapted under license by your healthcare professional. If you have questions about a medical condition or this instruction, always ask your healthcare professional. [employer] disclaims any warranty or liability for your use of this information. documented in this encounter Instructions * Patient Instructions* Rebeca Kaur, [facility] - 12/06/2019 11:46 AM EDT Upper Respiratory Infection (Cold): Care Instructions Your Care Instructions An upper respiratory infection, or URI, is an infection of the nose, sinuses, or throat. URIs are spread by coughs, sneezes, and direct contact. The common cold is the most frequent kind of URI. The flu and sinus infections are other kinds of URIs. Almost all URIs are caused by viruses. Antibiotics won't cure them. But you can treat most infections with home care. This may include drinking lots of fluids and taking brrl-bio-mjymwbd pain medicine. You will probably feel better in 4 to 10 days. The doctor has checked you carefully, but problems can develop later. If you notice any problems ornew symptoms, get medical treatment right away. Follow-up care is a argueta part of your treatment and safety. Be sure to make and go to all appointments, and call your doctor if you are having problems. It's also a good idea to know your test resultsand keep a list of the medicines you take. How can you care for yourself at home? To prevent dehydration, drink plenty of fluids, enough so that your urine is light yellow or clear like water. Choose water and other caffeine-free clear liquids until you feel better. If you have kidney, heart, or liver disease and have to limit fluids, talk with your doctor before you increase the amount of fluids you drink. Take an fotr-qxt-nfxvoum pain medicine, such as acetaminophen (Tylenol), ibuprofen (Advil, Motrin),or naproxen (Aleve). Read and follow all instructions on the label. Before you use cough and cold medicines, check the label. These medicines may not be safe for youngchildren or for people with certain health problems. Be careful when taking xeqh-rzc-avlrgmr cold or flu medicines and Tylenol at the same time. Many ofthese medicines have acetaminophen, which is Tylenol. Read the labels to make sure that you are nottaking more than the recommended dose. Too much acetaminophen (Tylenol) can be harmful. Get plenty of rest. Do not smoke or allow others to smoke around you. If you need help quitting, talk to your doctor about stop-smoking programs and medicines. These can increase your chances of quitting for good. When should you call for help? [id number] anytime you think you may need emergency care. For example, call if: You have severe trouble breathing. Call your doctor now or seek immediate medical care if: You seem to be getting much sicker. You have new or worse trouble breathing. You have a new or higher fever. You have a new rash. Watch closely for changes in your health, and be sure to contact your doctor if: You have a new symptom, such as a sore throat, an earache, or sinus pain. You cough more deeply or more often, especially if you notice more mucus or a change in the color of your mucus. You do not get better as expected. Where can you learn more? Log into your personal health record on [email or web address] and enter K520 in the Education box to learn more about Upper Respiratory Infection (Cold): Care Instructions. Current as of: July 22, 2019 Content Version: 12.5 [employer]. Care instructions adapted under license by your healthcare professional. If you have questions about a medical condition or this instruction, always ask your healthcare professional. [employer] disclaims any warranty or liability for your use of this information. Coronavirus (COVID-19): Care Instructions Overview The coronavirus disease (COVID-19) is caused by a virus. Symptoms may include a fever, a cough, andshortness of breath. It mainly spreads wawkio-rb-hcjliz through droplets from coughing and sneezing. The virus also can spread when people are in close contact with someone who is infected. Most people have mild symptoms and can take care of themselves at home. If their symptoms get worse, they may need care in a hospital. There is no medicine to fight the virus. It's important to not spread the virus to others. If you have COVID-19, wear a face cover anytime you are around other people. You need to isolate yourself while you are sick. Your doctor or local public health official will tell you when you no longer need to be isolated. Leave your home only if you need to get medical care. Follow-up care is a argueta part of your treatment and safety. Be sure to make and go to all appointments, and call your doctor if you are having problems. It's also a good idea to know your test resultsand keep a list of the medicines you take. How can you care for yourself at home? Get extra rest. It can help you feel better. Drink plenty of fluids. This helps replace fluids lost from fever. Fluids also help ease a scratchythroat. Water, soup, fruit juice, and hot tea with lemon are good choices. Take acetaminophen (such as Tylenol) to reduce a fever. It may also help with muscle aches. Read and follow all instructions on the label. Sponge your body with lukewarm water to help with fever. Don't use cold water or ice. Use petroleum jelly on sore skin. This can help if the skin around your nose and lips becomes sore from rubbing a lot with tissues. Tips for isolation Wear a cloth face cover when you are around other people. It can help stop the spread of the virus when you cough or sneeze. Limit contact with people in your home. If possible, stay in a separate bedroom and use a separate bathroom. If you have to leave home, avoid crowds and try to stay at least 6 feet away from other people. Avoid contact with pets and other animals. Cover your mouth and nose with a tissue when you cough or sneeze. Then throw it in the trash right away. Wash your hands often, especially after you cough or sneeze. Use soap and water, and scrub for at least 20 seconds. If soap and water aren't available, use an alcohol-based hand pulp beater. Don't share personal household items. These include bedding, towels, cups and glasses, and eating utensils. Wash laundry in the warmest water allowed for the fabric type, and dry it completely.It's okay to wash other people's laundry with yours. Clean and disinfect your home every day. Use household associate professor of theatre and disinfectant wipes or sprays. Take special care to clean things that you grab with your hands. These include doorknobs, remote controls, phones, and handles on your refrigerator and microwave. And don't forget countertops, tabletops, bathrooms, and computer keyboards. When should you call for help? [id number] anytime you think you may need emergency care. For example, call if you have life-threatening symptoms, such as: You have severe trouble breathing. (You can't talk at all.) You have constant chest pain or pressure. You are severely dizzy or lightheaded. You are confused or can't think clearly. Your face and lips have a blue color. You pass out (lose consciousness) or are very hard to wake up. Call your doctor now or seek immediate medical care if: You have moderate trouble breathing. (You can't speak a full sentence.) You are coughing up blood (more than about 1 teaspoon). You have signs of low blood pressure. These include feeling lightheaded; being too weak to stand; and having cold, pale, clammy skin. Watch closely for changes in your health, and be sure to contact your doctor if: Your symptoms get worse. You are not getting better as expected. Call before you go to the doctor's office. Follow their instructions. And wear a cloth face cover. Current as of: October 25, 2019 Content Version: 12.5 [employer]. Care instructions adapted under license by your healthcare professional. If you have questions about a medical condition or this instruction, always ask your healthcare professional. [employer] disclaims any warranty or liability for your use of this information. Learning About Benefits From Quitting Smoking How does quitting smoking make you healthier? If you're thinking about quitting smoking, you may have a few reasons to be smoke-free. Your healthmay be one of them. When you quit smoking, you lower your risks for cancer, lung disease, heart attack, stroke, blood vessel disease, and blindness from macular degeneration. When you're smoke-free, you get sick less often, and you heal faster. You are less likely to get colds, flu, bronchitis, and pneumonia. As a nonsmoker, you may find that your mood is better and you are less stressed. When and how will you feel healthier? Quitting has real health benefits that start from day 1 of being smoke-free. And the longer you stay smoke-free, the healthier you get and the better you feel. The first hours After just 20 minutes, your blood pressure and heart rate go down. That means there's less stress on your heart and blood vessels. Within 12 hours, the level of carbon monoxide in your blood drops back to normal. That makes room for more oxygen. With more oxygen in your body, you may notice that you have more energy than when you smoked. After 2 weeks Your lungs start to work better. Your risk of heart attack starts to drop. After 1 month When your lungs are clear, you cough less and breathe deeper, so it's easier to be active. Your sense of taste and smell return. That means you can enjoy food more than you have since you started smoking. Over the years Over the years, your risks of heart disease, heart attack, and stroke are lower. After 10 years, your risk of dying from lung cancer is cut by about half. And your risk for many other types of cancer is lower too. How would quitting help others in your life? When you quit smoking, you improve the health of everyone who now breathes in your smoke. Their heart, lung, and cancer risks drop, much like yours. They are sick less. For babies and small children, living smoke-free means they're less likely to have ear infections, pneumonia, and bronchitis. If you're a woman who is or will be someday, quitting smoking means a healthier . Children who are close to you are less likely to become adult smokers. Where can you learn more? Log into your personal health record on https://[employer] and enter O319 in the Education box to learn more about Learning About Benefits From Quitting Smoking. Current as of: August 08, 2019 Content Version: 12.5 5567-8007 [employer]. Care instructions adapted under license by your healthcare professional. If you have questions about a medical condition or this instruction, always ask your healthcare professional. [employer] disclaims any warranty or liability for your use of this information. Isolate yourself at home until your test results are available. You will be notified of your COVID results and given further instructions. ER if you develop a high fever, shaking chills, vomiting, chest pain, shortness of breath or loss of consciousness. Please consider smoking cessation. documented in this encounter* Patient Instructions* Rebeca Kaur CNP - 12/06/2019 11:46 AM EDT Upper Respiratory Infection (Cold): Care Instructions Your Care Instructions An upper respiratory infection, or URI, is an infection of the nose, sinuses, or throat. URIs are spread by coughs, sneezes, and direct contact. The common cold is the most frequent kind of URI. The flu and sinus infections are other kinds of URIs. Almost all URIs are caused by viruses. Antibiotics won't cure them. But you can treat most infections with home care. This may include drinking lots of fluids and taking dfzd-kce-kqcohji pain medicine. You will probably feel better in 4 to 10 days. The doctor has checked you carefully, but problems can develop later. If you notice any problems ornew symptoms, get medical treatment right away. Follow-up care is a argueta part of your treatment and safety. Be sure to make and go to all appointments, and call your doctor if you are having problems. It's also a good idea to know your test resultsand keep a list of the medicines you take. How can you care for yourself at home? To prevent dehydration, drink plenty of fluids, enough so that your urine is light yellow or clear like water. Choose water and other caffeine-free clear liquids until you feel better. If you have kidney, heart, or liver disease and have to limit fluids, talk with your doctor before you increase the amount of fluids you drink. Take an gabm-nvv-uqchsgm pain medicine, such as acetaminophen (Tylenol), ibuprofen (Advil, Motrin),or naproxen (Aleve). Read and follow all instructions on the label. Before you use cough and cold medicines, check the label. These medicines may not be safe for youngchildren or for people with certain health problems. Be careful when taking rtfs-xmx-tmvszhq cold or flu medicines and Tylenol at the same time. Many ofthese medicines have acetaminophen, which is Tylenol. Read the labels to make sure that you are nottaking more than the recommended dose. Too much acetaminophen (Tylenol) can be harmful. Get plenty of rest. Do not smoke or allow others to smoke around you. If you need help quitting, talk to your doctor about stop-smoking programs and medicines. These can increase your chances of quitting for good. When should you call for help? [id number] anytime you think you may need emergency care. For example, call if: You have severe trouble breathing. Call your doctor now or seek immediate medical care if: You seem to be getting much sicker. You have new or worse trouble breathing. You have a new or higher fever. You have a new rash. Watch closely for changes in your health, and be sure to contact your doctor if: You have a new symptom, such as a sore throat, an earache, or sinus pain. You cough more deeply or more often, especially if you notice more mucus or a change in the color of your mucus. You do not get better as expected. Where can you learn more? Log into your personal health record on https://[employer]ered and enter K520 in the Education box to learn more about Upper Respiratory Infection (Cold): Care Instructions. Current as of: July 22, 2019 Content Version: 12.5 [employer]. Care instructions adapted under license by your healthcare professional. If you have questions about a medical condition or this instruction, always ask your healthcare professional. [employer] disclaims any warranty or liability for your use of this information. Coronavirus (COVID-19): Care Instructions Overview The coronavirus disease (COVID-19) is caused by a virus. Symptoms may include a fever, a cough, andshortness of breath. It mainly spreads ttglrm-zj-srfhld through droplets from coughing and sneezing. The virus also can spread when people are in close contact with someone who is infected. Most people have mild symptoms and can take care of themselves at home. If their symptoms get worse, they may need care in a hospital. There is no medicine to fight the virus. It's important to not spread the virus to others. If you have COVID-19, wear a face cover anytime you are around other people. You need to isolate yourself while you are sick. Your doctor or local public health official will tell you when you no longer need to be isolated. Leave your home only if you need to get medical care. Follow-up care is a argueta part of your treatment and safety. Be sure to make and go to all appointments, and call your doctor if you are having problems. It's also a good idea to know your test resultsand keep a list of the medicines you take. How can you care for yourself at home? Get extra rest. It can help you feel better. Drink plenty of fluids. This helps replace fluids lost from fever. Fluids also help ease a scratchythroat. Water, soup, fruit juice, and hot tea with lemon are good choices. Take acetaminophen (such as Tylenol) to reduce a fever. It may also help with muscle aches. Read and follow all instructions on the label. Sponge your body with lukewarm water to help with fever. Don't use cold water or ice. Use petroleum jelly on sore skin. This can help if the skin around your nose and lips becomes sore from rubbing a lot with tissues. Tips for isolation Wear a cloth face cover when you are around other people. It can help stop the spread of the virus when you cough or sneeze. Limit contact with people in your home. If possible, stay in a separate bedroom and use a separate bathroom. If you have to leave home, avoid crowds and try to stay at least 6 feet away from other people. Avoid contact with pets and other animals. Cover your mouth and nose with a tissue when you cough or sneeze. Then throw it in the trash right away. Wash your hands often, especially after you cough or sneeze. Use soap and water, and scrub for at least 20 seconds. If soap and water aren't available, use an alcohol-based hand pulp beater. Don't share personal household items. These include bedding, towels, cups and glasses, and eating utensils. Wash laundry in the warmest water allowed for the fabric type, and dry it completely.It's okay to wash other people's laundry with yours. Clean and disinfect your home every day. Use household associate professor of theatre and disinfectant wipes or sprays. Take special care to clean things that you grab with your hands. These include doorknobs, remote controls, phones, and handles on your refrigerator and microwave. And don't forget countertops, tabletops, bathrooms, and computer keyboards. When should you call for help? [id number] anytime you think you may need emergency care. For example, call if you have life-threatening symptoms, such as: You have severe trouble breathing. (You can't talk at all.) You have constant chest pain or pressure. You are severely dizzy or lightheaded. You are confused or can't think clearly. Your face and lips have a blue color. You pass out (lose consciousness) or are very hard to wake up. Call your doctor now or seek immediate medical care if: You have moderate trouble breathing. (You can't speak a full sentence.) You are coughing up blood (more than about 1 teaspoon). You have signs of low blood pressure. These include feeling lightheaded; being too weak to stand; and having cold, pale, clammy skin. Watch closely for changes in your health, and be sure to contact your doctor if: Your symptoms get worse. You are not getting better as expected. Call before you go to the doctor's office. Follow their instructions. And wear a cloth face cover. Current as of: October 25, 2019 Content Version: 12.5 [employer]. Care instructions adapted under license by your healthcare professional. If you have questions about a medical condition or this instruction, always ask your healthcare professional. [employer] disclaims any warranty or liability for your use of this information. Learning About Benefits From Quitting Smoking How does quitting smoking make you healthier? If you're thinking about quitting smoking, you may have a few reasons to be smoke-free. Your healthmay be one of them. When you quit smoking, you lower your risks for cancer, lung disease, heart attack, stroke, blood vessel disease, and blindness from macular degeneration. When you're smoke-free, you get sick less often, and you heal faster. You are less likely to get colds, flu, bronchitis, and pneumonia. As a nonsmoker, you may find that your mood is better and you are less stressed. When and how will you feel healthier? Quitting has real health benefits that start from day 1 of being smoke-free. And the longer you stay smoke-free, the healthier you get and the better you feel. The first hours After just 20 minutes, your blood pressure and heart rate go down. That means there's less stress on your heart and blood vessels. Within 12 hours, the level of carbon monoxide in your blood drops back to normal. That makes room for more oxygen. With more oxygen in your body, you may notice that you have more energy than when you smoked. After 2 weeks Your lungs start to work better. Your risk of heart attack starts to drop. After 1 month When your lungs are clear, you cough less and breathe deeper, so it's easier to be active. Your sense of taste and smell return. That means you can enjoy food more than you have since you started smoking. Over the years Over the years, your risks of heart disease, heart attack, and stroke are lower. After 10 years, your risk of dying from lung cancer is cut by about half. And your risk for many other types of cancer is lower too. How would quitting help others in your life? When you quit smoking, you improve the health of everyone who now breathes in your smoke. Their heart, lung, and cancer risks drop, much like yours. They are sick less. For babies and small children, living smoke-free means they're less likely to have ear infections, pneumonia, and bronchitis. If you're a woman who is or will be someday, quitting smoking means a healthier . Children who are close to you are less likely to become adult smokers. Where can you learn more? Log into your personal health record on https://Gl[employer]In[employer].Powered and enter O319 in the Education box to learn more about Learning About Benefits From Quitting Smoking. Current as of: August 08, 2019 Content Version: 12.5 [employer]. Care instructions adapted under license by your healthcare professional. If you have questions about a medical condition or this instruction, always ask your healthcare professional. [employer] disclaims any warranty or liability for your use of this information. Isolate yourself at home until your test results are available. You will be notified of your COVID results and given further instructions. ER if you develop a high fever, shaking chills, vomiting, chest pain, shortness of breath or loss of consciousness. Please consider smoking cessation. documented in this encounter Chief Complaint and Reason for Visit Chief Complaint Admit Date [facility] WORK April 17 4:00am [id number] April 17, 2024 2:38pm [facility] April 24 4:00am PEG TUBE April 30, 2024 1 :29pm [facility] May 27 5:00am LAB WORK June 03, 2024 5: 00am PAD June 05, 2024 2: 56pm LAB WORK June 06, 2024 5: 10am LABWORK June 07, 2024 5 :00am LABWORK June 21, 2024 1 1:00pm [facility] June 25, 2024 5:00am weight loss/not eating July 18 9:01am NEAR SYCOPE July 18, 2024 9:39am SEVERE MALNUTRITION July 23, 2024 5:23pm malnurishment July 23, 2024 5:35pm SEVERE MALNUTRITION July 23, 2024 11:56pm SEVERE MALNUTRITION July 24, 2024 8:56am SEVERE MALNUTRITION July 24, 2024 2:57pm SEVERE MALNUTRITION February 27th, 2025 4:42pm SEVERE MALNUTRITION July 26, 2024 5:16pm SEVERE MALNUTRITION July 26, 2024 6:13pm SEVERE MALNUTRITION July 27, 2024 12:1 7pm SEVERE MALNUTRITION July 28, 2024 7:21 am SEVERE MALNUTRITION July 29, 2024 2:44 pm LAB WORK July 30, 2024 5:00 am UPPER GI BLEED July 31, 2024 3:42 pm UPPER GI BLEED August 01, 2024 6:35 am UPPER GI BLEED August 01, 2024 8:28 pm UPPER GI BLEED August 02, 2024 2:51 pm UPPER GI BLEED August 02, 2024 8:31 pm UPPER GI BLEED August 03, 2024 8:06 am UPPER GI BLEED August 03, 2024 11:5 3am UPPER GI BLEED August 04, 2024 5:09 am UPPER GI BLEED August 05, 2024 1:0 3am UPPER GI BLEED August 06, 2024 8:4 3am UPPER GI BLEED August 06, 2024 9:1 1pm UPPER GI BLEED August 07, 2024 8:5 6am UPPER GI BLEED August 08, 2024 7:4 4am UPPER GI BLEED August 08, 2024 6:1 5pm UPPER GI BLEED August 09, 2024 8:0 5am UPPER GI BLEED August 10, 2024 8:4 6am UPPER GI BLEED August 11, 2024 8:2 7am UPPER GI BLEED August 12, 2024 7:4 5am UPPER GI BLEED August 13, 2024 10: 13am ANASARCA, SOB August 14, 2024 11: 52am Reason for Visit Admit Date Unspecified severe protein-calorie malnu trition April 30, 2024 1:29pm Eschar of toe June 05, 2024 2: 56pm PAD (peripheral artery disease) June 05, 2024 2:56pm S/P AAA repair June 05, 2024 2: 56pm Chronic anemia July 23, 2024 5:23pm End stage renal disease July 23, 2 025 5:23pm Leukocytosis July 23, 2024 5:23pm Open abdominal wall wound July 23, 2024 5:23pm Unspecified severe protein-calorie malnu trition July 23, 2024 5:23pm ABLA (acute blood loss anemia) July 3:42pm Abnormal CT of the abdomen July 31 3:42pm Acute upper gastrointestinal bleeding [facility] 2024 3:42pm Anemia July 31, 2024 3:42 pm Chronic anticoagulation July 31, 2024 3:42pm Coffee ground emesis July 31, 2024 3:4 2pm Diarrhea July 31, 2024 3:42 pm Factor V Leiden July 31, 2024 3:42 pm GI bleed July 31, 2024 3:42 pm Hypoglycemia July 31, 2024 3:42 pm Raynaud disease July 31, 2024 3:42 pm Chronic kidney disease with end stage renal 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 July 31, 2024 3:42pm End stage renal disease July 31, 2024 3:42pm Anasarca August 14, 2024 11: 52am Pulmonary edema August 14, 2024 11: 52am Chief Complaint Admit Date [facility] WORK April 24 4:00am PEG TUBE April 30, 2024 1 :29pm [facility] WORK May 27 5:00am LAB WORK June 03, 2024 5: 00am PAD June 05, 2024 2: 56pm LAB WORK June 06, 2024 5: 10am LABWORK June 07, 2024 5 :00am LABWORK June 21, 2024 1 1:00pm [facility] WORK June 25, 2024 5:00am weight loss/not eating July 18 9:01am NEAR SYCOPE July 18, 2024 9:39am SEVERE MALNUTRITION July 23, 2024 5:23pm malnurishment July 23, 2024 5:35pm SEVERE MALNUTRITION July 23, 2024 11:56pm SEVERE MALNUTRITION July 24, 2024 8:56am SEVERE MALNUTRITION July 24, 2024 2:57pm SEVERE MALNUTRITION July 25, 2024 4:42pm SEVERE MALNUTRITION July 26, 2024 5:16pm SEVERE MALNUTRITION July 26, 2024 6:13pm SEVERE MALNUTRITION July 27, 2024 12:1 7pm SEVERE MALNUTRITION July 28, 2024 7:21 am SEVERE MALNUTRITION July 29, 2024 2:44 pm LAB WORK July 30, 2024 5:00 am UPPER GI BLEED July 31, 2024 3:42 pm UPPER GI BLEED August 01, 2024 6:35 am UPPER GI BLEED August 01, 2024 8:28 pm UPPER GI BLEED August 02, 2024 2:51 pm UPPER GI BLEED August 02, 2024 8:31 pm UPPER GI BLEED August 03, 2024 8:06 am UPPER GI BLEED August 03, 2024 11:5 3am UPPER GI BLEED August 04, 2024 5:09 am UPPER GI BLEED August 05, 2024 1:0 3am UPPER GI BLEED August 06, 2024 8:4 3am UPPER GI BLEED August 06, 2024 9:1 1pm UPPER GI BLEED August 07, 2024 8:5 6am UPPER GI BLEED August 08, 2024 7:4 4am UPPER GI BLEED August 08, 2024 6:1 5pm UPPER GI BLEED August 09, 2024 8:0 5am UPPER GI BLEED August 10, 2024 8:4 6am UPPER GI BLEED August 11, 2024 8:2 7am UPPER GI BLEED August 12, 2024 7:4 5am UPPER GI BLEED August 13, 2024 10: 13am ANASARCA, SOB August 14, 2024 11: 52am ANASARCA, SOB August 14, 2024 12: 21pm ANASARCA, SOB August 15, 2024 8:1 1am ANASARCA, SOB August 15, 2024 9:0 9am ANASARCA, SOB August 16, 2024 3:2 2pm ANASARCA, SOB August 17, 2024 9:1 6am Reason for Visit Admit Date Unspecified severe protein-calorie malnu trition April 30, 2024 1:29pm Eschar of toe June 05, 2024 2: 56pm PAD (peripheral artery disease) June 05, 2024 2:56pm S/P AAA repair June 05, 2024 2: 56pm End stage renal disease July 23, 2 025 5:23pm Chronic anemia July 23, 2024 5:23pm Leukocytosis July 23, 2024 5:23pm Open abdominal wall wound July 23, 2024 5:23pm Unspecified severe protein-calorie malnu trition July 23, 2024 5:23pm ABLA (acute blood loss anemia) July 3:42pm Abnormal CT of the abdomen March 5th, 20 25 3:42pm Acute upper gastrointestinal bleeding [facility] 2024 3:42pm Anemia July 31, 2024 3:42 pm Chronic anticoagulation July 31, 2024 3:42pm Coffee ground emesis July 31, 2024 3:4 2pm Diarrhea July 31, 2024 3:42 pm End stage renal disease July 31, 2024 3:42pm Factor V Leiden July 31, 2024 3:42 pm GI bleed July 31, 2024 3:42 pm Hypoglycemia July 31, 2024 3:42 pm Raynaud disease July 31, 2024 3:42 pm Chronic kidney disease with end stage renal 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 July 31, 2024 3:42pm Anasarca August 14, 2024 11: 52am End stage renal disease August 14, 2024 11:52am Pleural effusion August 14, 2024 11: 52am Pulmonary edema August 14, 2024 11: 52am Chief Complaint Admit Date [facility] LAB WORK May 27 5:00am LAB WORK June 03, 2024 5: 00am PAD June 05, 2024 2: 56pm LAB WORK June 06, 2024 5: 10am LABWORK June 07, 2024 5 :00am LABWORK June 21, 2024 1 1:00pm [facility] LAB WORK June 25, 2024 5:00am weight loss/not eating July 18 9:01am NEAR SYCOPE July 18, 2024 9:39am SEVERE MALNUTRITION July 23, 2024 5:23pm malnurishment July 23, 2024 5:35pm SEVERE MALNUTRITION July 23, 2024 11:56pm SEVERE MALNUTRITION July 24, 2024 8:56am SEVERE MALNUTRITION July 24, 2024 2:57pm SEVERE MALNUTRITION July 25, 2024 4:42pm SEVERE MALNUTRITION July 26, 2024 5:16pm SEVERE MALNUTRITION July 26, 2024 6:13pm SEVERE MALNUTRITION July 27, 2024 12:1 7pm SEVERE MALNUTRITION July 28, 2024 7:21 am SEVERE MALNUTRITION July 29, 2024 2:44 pm LAB WORK July 30, 2024 5:00 am UPPER GI BLEED July 31, 2024 3:42 pm UPPER GI BLEED August 01, 2024 6:35 am UPPER GI BLEED August 01, 2024 8:28 pm UPPER GI BLEED August 02, 2024 2:51 pm UPPER GI BLEED August 02, 2024 8:31 pm UPPER GI BLEED August 03, 2024 8:06 am UPPER GI BLEED August 03, 2024 11:5 3am UPPER GI BLEED August 04, 2024 5:09 am UPPER GI BLEED August 05, 2024 1:0 3am UPPER GI BLEED August 06, 2024 8:4 3am UPPER GI BLEED August 06, 2024 9:1 1pm UPPER GI BLEED August 07, 2024 8:5 6am UPPER GI BLEED August 08, 2024 7:4 4am UPPER GI BLEED August 08, 2024 6:1 5pm UPPER GI BLEED August 09, 2024 8:0 5am UPPER GI BLEED August 10, 2024 8:4 6am UPPER GI BLEED August 11, 2024 8:2 7am UPPER GI BLEED August 12, 2024 7:4 5am UPPER GI BLEED August 13, 2024 10: 13am ANASARCA, SOB August 14, 2024 11: 52am ANASARCA, SOB August 14, 2024 12: 21pm ANASARCA, SOB August 15, 2024 8:1 1am ANASARCA, SOB August 15, 2024 9:0 9am ANASARCA, SOB August 16, 2024 3:2 2pm ANASARCA, SOB August 17, 2024 9:1 6am 2 units PRBC August 31, 2024 9:01 am Reason for Visit Admit Date Eschar of toe June 05, 2024 2: 56pm PAD (peripheral artery disease) June 05, 2024 2:56pm S/P AAA repair June 05, 2024 2: 56pm End stage renal disease July 23, 2 025 5:23pm Chronic anemia July 23, 2024 5:23pm Leukocytosis July 23, 2024 5:23pm Open abdominal wall wound July 23, 2024 5:23pm Unspecified severe protein-calorie malnu trition July 23, 2024 5:23pm ABLA (acute blood loss anemia) July 3:42pm Abnormal CT of the abdomen July 31 3:42pm Acute upper gastrointestinal bleeding [facility] 2024 3:42pm Anemia July 31, 2024 3:42 pm Chronic anticoagulation July 31, 2024 3:42pm Coffee ground emesis July 31, 2024 3:4 2pm Factor V Leiden July 31, 2024 3:42 pm GI bleed July 31, 2024 3:42 pm Chronic kidney disease with end stage renal 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 July 31, 2024 3:42pm Diarrhea July 31, 2024 3:42 pm End stage renal disease July 31, 2024 3:42pm Hypoglycemia July 31, 2024 3:42 pm Raynaud disease July 31, 2024 3:42 pm Anasarca August 14, 2024 11: 52am Pleural effusion August 14, 2024 11: 52am Pulmonary edema August 14, 2024 11: 52am End stage renal disease August 14, 2024 11:52am Chief Complaint Admit Date [facility] LAB WORK May 27 5:00am LAB WORK June 03, 2024 5: 00am PAD June 05, 2024 2: 56pm LAB WORK June 06, 2024 5: 10am LABWORK June 07, 2024 5 :00am LABWORK June 21, 2024 1 1:00pm [facility] LAB WORK June 25, 2024 5:00am weight loss/not eating July 18 9:01am NEAR SYCOPE July 18, 2024 9:39am SEVERE MALNUTRITION July 23, 2024 5:23pm malnurishment July 23, 2024 5:35pm SEVERE MALNUTRITION July 23, 2024 11:56pm SEVERE MALNUTRITION July 24, 2024 8:56am SEVERE MALNUTRITION July 24, 2024 2:57pm SEVERE MALNUTRITION July 25, 2024 4:42pm SEVERE MALNUTRITION July 26, 2024 5:16pm SEVERE MALNUTRITION July 26, 2024 6:13pm SEVERE MALNUTRITION July 27, 2024 12:1 7pm SEVERE MALNUTRITION July 28, 2024 7:21 am SEVERE MALNUTRITION July 29, 2024 2:44 pm LAB WORK July 30, 2024 5:00 am UPPER GI BLEED July 31, 2024 3:42 pm UPPER GI BLEED August 01, 2024 6:35 am UPPER GI BLEED August 01, 2024 8:28 pm UPPER GI BLEED August 02, 2024 2:51 pm UPPER GI BLEED August 02, 2024 8:31 pm UPPER GI BLEED August 03, 2024 8:06 am UPPER GI BLEED August 03, 2024 11:5 3am UPPER GI BLEED August 04, 2024 5:09 am UPPER GI BLEED August 05, 2024 1:0 3am UPPER GI BLEED August 06, 2024 8:4 3am UPPER GI BLEED August 06, 2024 9:1 1pm UPPER GI BLEED August 07, 2024 8:5 6am UPPER GI BLEED August 08, 2024 7:4 4am UPPER GI BLEED August 08, 2024 6:1 5pm UPPER GI BLEED August 09, 2024 8:0 5am UPPER GI BLEED August 10, 2024 8:4 6am UPPER GI BLEED August 11, 2024 8:2 7am UPPER GI BLEED August 12, 2024 7:4 5am UPPER GI BLEED August 13, 2024 10: 13am [facility] LAB WORK August 14, 2024 5 :00am ANASARCA, SOB August 14, 2024 11: 52am ANASARCA, SOB August 14, 2024 12: 21pm ANASARCA, SOB August 15, 2024 8:1 1am BILATERAL EFFUSION August 15, 2024 9:0 0am ANASARCA, SOB August 15, 2024 9:0 9am ANASARCA, SOB August 16, 2024 3:2 2pm ANASARCA, SOB August 17, 2024 9:1 6am [facility] LAB WORK August 26, 2024 4 :00am 2 units PRBC August 31, 2024 9:01 am Chief Complaint Admit Date [facility] LAB WORK May 27 5:00am LAB WORK June 03, 2024 5: 00am PAD June 05, 2024 2: 56pm LAB WORK June 06, 2024 5: 10am LABWORK June 07, 2024 5 :00am LABWORK June 21, 2024 1 1:00pm [facility] LAB WORK June 25, 2024 5:00am weight loss/not eating July 18 9:01am NEAR SYCOPE July 18, 2024 9:39am SEVERE MALNUTRITION July 23, 2024 5:23pm malnurishment July 23, 2024 5:35pm SEVERE MALNUTRITION July 23, 2024 11:56pm SEVERE MALNUTRITION July 24, 2024 8:56am SEVERE MALNUTRITION July 24, 2024 2:57pm SEVERE MALNUTRITION July 25, 2024 4:42pm SEVERE MALNUTRITION July 26, 2024 5:16pm SEVERE MALNUTRITION July 26, 2024 6:13pm SEVERE MALNUTRITION July 27, 2024 12:1 7pm SEVERE MALNUTRITION July 28, 2024 7:21 am SEVERE MALNUTRITION July 29, 2024 2:44 pm LAB WORK July 30, 2024 5:00 am UPPER GI BLEED July 31, 2024 3:42 pm UPPER GI BLEED August 01, 2024 6:35 am UPPER GI BLEED August 01, 2024 8:28 pm UPPER GI BLEED August 02, 2024 2:51 pm UPPER GI BLEED August 02, 2024 8:31 pm UPPER GI BLEED August 03, 2024 8:06 am UPPER GI BLEED August 03, 2024 11:5 3am UPPER GI BLEED August 04, 2024 5:09 am UPPER GI BLEED August 05, 2024 1:0 3am UPPER GI BLEED August 06, 2024 8:4 3am UPPER GI BLEED August 06, 2024 9:1 1pm UPPER GI BLEED August 07, 2024 8:5 6am UPPER GI BLEED August 08, 2024 7:4 4am UPPER GI BLEED August 08, 2024 6:1 5pm UPPER GI BLEED August 09, 2024 8:0 5am UPPER GI BLEED August 10, 2024 8:4 6am UPPER GI BLEED August 11, 2024 8:2 7am UPPER GI BLEED August 12, 2024 7:4 5am UPPER GI BLEED August 13, 2024 10: 13am [facility] LAB WORK August 14, 2024 5 :00am ANASARCA, SOB August 14, 2024 11: 52am ANASARCA, SOB August 14, 2024 12: 21pm ANASARCA, SOB August 15, 2024 8:1 1am BILATERAL EFFUSION August 15, 2024 9:0 0am ANASARCA, SOB August 15, 2024 9:0 9am ANASARCA, SOB August 16, 2024 3:2 2pm ANASARCA, SOB August 17, 2024 9:1 6am [facility] LAB WORK August 22, 2024 5 :00am [facility] LAB WORK August 26, 2024 4 :00am LABWORK August 28, 2024 5:00 am 2 units PRBC August 31, 2024 9:01 am Chief Complaint Admit Date [facility] LAB WORK May 27 5:00am LAB WORK June 03, 2024 5: 00am PAD June 05, 2024 2: 56pm LAB WORK June 06, 2024 5: 10am LABWORK June 07, 2024 5 :00am LABWORK June 21, 2024 1 1:00pm [facility] LAB WORK June 25, 2024 5:00am weight loss/not eating July 18 9:01am NEAR SYCOPE July 18, 2024 9:39am SEVERE MALNUTRITION July 23, 2024 5:23pm malnurishment July 23, 2024 5:35pm SEVERE MALNUTRITION July 23, 2024 11:56pm SEVERE MALNUTRITION July 24, 2024 8:56am SEVERE MALNUTRITION July 24, 2024 2:57pm SEVERE MALNUTRITION July 25, 2024 4:42pm SEVERE MALNUTRITION July 26, 2024 5:16pm SEVERE MALNUTRITION July 26, 2024 6:13pm SEVERE MALNUTRITION July 27, 2024 12:1 7pm SEVERE MALNUTRITION July 28, 2024 7:21 am SEVERE MALNUTRITION July 29, 2024 2:44 pm LAB WORK July 30, 2024 5:00 am UPPER GI BLEED July 31, 2024 3:42 pm UPPER GI BLEED August 01, 2024 6:35 am UPPER GI BLEED August 01, 2024 8:28 pm UPPER GI BLEED August 02, 2024 2:51 pm UPPER GI BLEED August 02, 2024 8:31 pm UPPER GI BLEED August 03, 2024 8:06 am UPPER GI BLEED August 03, 2024 11:5 3am UPPER GI BLEED August 04, 2024 5:09 am UPPER GI BLEED August 05, 2024 1:0 3am UPPER GI BLEED August 06, 2024 8:4 3am UPPER GI BLEED August 06, 2024 9:1 1pm UPPER GI BLEED August 07, 2024 8:5 6am UPPER GI BLEED August 08, 2024 7:4 4am UPPER GI BLEED August 08, 2024 6:1 5pm UPPER GI BLEED August 09, 2024 8:0 5am UPPER GI BLEED August 10, 2024 8:4 6am UPPER GI BLEED August 11, 2024 8:2 7am UPPER GI BLEED August 12, 2024 7:4 5am UPPER GI BLEED August 13, 2024 10: 13am [facility] LAB WORK August 14, 2024 5 :00am ANASARCA, SOB August 14, 2024 11: 52am ANASARCA, SOB August 14, 2024 12: 21pm ANASARCA, SOB August 15, 2024 8:1 1am BILATERAL EFFUSION August 15, 2024 9:0 0am ANASARCA, SOB August 15, 2024 9:0 9am ANASARCA, SOB August 16, 2024 3:2 2pm ANASARCA, SOB August 17, 2024 9:1 6am [facility] LAB WORK August 22, 2024 5 :00am [facility] LAB WORK August 26, 2024 4 :00am LABWORK August 28, 2024 5:00 am 2 units PRBC August 31, 2024 9:01 am sob September 15, 2024 4:2 2am Chief Complaint Admit Date LABWORK June 21, 2024 1 1:00pm [facility] LAB WORK June 25, 2024 5:00am weight loss/not eating July 18 9:01am NEAR SYCOPE July 18, 2024 9:39am SEVERE MALNUTRITION July 23, 2024 5:23pm malnurishment July 23, 2024 5:35pm SEVERE MALNUTRITION July 23, 2024 11:56pm SEVERE MALNUTRITION July 24, 2024 8:56am SEVERE MALNUTRITION July 24, 2024 2:57pm SEVERE MALNUTRITION July 25, 2024 4:42pm SEVERE MALNUTRITION July 26, 2024 5:16pm SEVERE MALNUTRITION July 26, 2024 6:13pm SEVERE MALNUTRITION July 27, 2024 12:1 7pm SEVERE MALNUTRITION July 28, 2024 7:21 am SEVERE MALNUTRITION July 29, 2024 2:44 pm LAB WORK July 30, 2024 5:00 am UPPER GI BLEED July 31, 2024 3:42 pm UPPER GI BLEED August 01, 2024 6:35 am UPPER GI BLEED August 01, 2024 8:28 pm UPPER GI BLEED August 02, 2024 2:51 pm UPPER GI BLEED August 02, 2024 8:31 pm UPPER GI BLEED August 03, 2024 8:06 am UPPER GI BLEED August 03, 2024 11:5 3am UPPER GI BLEED August 04, 2024 5:09 am UPPER GI BLEED August 05, 2024 1:0 3am UPPER GI BLEED August 06, 2024 8:4 3am UPPER GI BLEED August 06, 2024 9:1 1pm UPPER GI BLEED August 07, 2024 8:5 6am UPPER GI BLEED August 08, 2024 7:4 4am UPPER GI BLEED August 08, 2024 6:1 5pm UPPER GI BLEED August 09, 2024 8:0 5am UPPER GI BLEED August 10, 2024 8:4 6am UPPER GI BLEED August 11, 2024 8:2 7am UPPER GI BLEED August 12, 2024 7:4 5am UPPER GI BLEED August 13, 2024 10: 13am [facility] LAB WORK August 14, 2024 5 :00am ANASARCA, SOB August 14, 2024 11: 52am ANASARCA, SOB August 14, 2024 12: 21pm ANASARCA, SOB August 15, 2024 8:1 1am BILATERAL EFFUSION August 15, 2024 9:0 0am ANASARCA, SOB August 15, 2024 9:0 9am AVF CREATION PREOP August 15, 2024 3:3 3pm ANASARCA, SOB August 16, 2024 3:2 2pm ANASARCA, SOB August 17, 2024 9:1 6am [facility] LAB WORK August 22, 2024 5 :00am [facility] LAB WORK August 26, 2024 4 :00am LABWORK August 28, 2024 5:00 am 2 units PRBC August 31, 2024 9:01 am LABWORK September 02, 2024 5:00 am sob September 15, 2024 4:2 2am LABWORK September 18, 2024 5:0 0am Reason for Visit Admit Date End stage renal disease July 23, 2 025 5:23pm Chronic anemia July 23, 2024 5:23pm Leukocytosis July 23, 2024 5:23pm Open abdominal wall wound July 23, 2024 5:23pm Unspecified severe protein-calorie malnu trition July 23, 2024 5:23pm ABLA (acute blood loss anemia) July 3:42pm Abnormal CT of the abdomen July 31 3:42pm Acute upper gastrointestinal bleeding [facility] 2024 3:42pm Anemia July 31, 2024 3:42 pm Chronic anticoagulation July 31, 2024 3:42pm Coffee ground emesis July 31, 2024 3:4 2pm Factor V Leiden July 31, 2024 3:42 pm GI bleed July 31, 2024 3:42 pm Chronic kidney disease with end stage renal 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 July 31, 2024 3:42pm Diarrhea July 31, 2024 3:42 pm End stage renal disease July 31, 2024 3:42pm Hypoglycemia July 31, 2024 3:42 pm Raynaud disease July 31, 2024 3:42 pm Anasarca August 14, 2024 11: 52am Pleural effusion August 14, 2024 11: 52am Pulmonary edema August 14, 2024 11: 52am End stage renal disease August 14, 2024 11:52am Chief Complaint Admit Date LABWORK June 21, 2024 1 1:00pm [facility] LAB WORK June 25, 2024 5:00am weight loss/not eating July 18 9:01am NEAR SYCOPE July 18, 2024 9:39am SEVERE MALNUTRITION July 23, 2024 5:23pm malnurishment July 23, 2024 5:35pm SEVERE MALNUTRITION July 23, 2024 11:56pm SEVERE MALNUTRITION July 24, 2024 8:56am SEVERE MALNUTRITION July 24, 2024 2:57pm SEVERE MALNUTRITION July 25, 2024 4:42pm SEVERE MALNUTRITION July 26, 2024 5:16pm SEVERE MALNUTRITION July 26, 2024 6:13pm SEVERE MALNUTRITION July 27, 2024 12:1 7pm SEVERE MALNUTRITION July 28, 2024 7:21 am SEVERE MALNUTRITION July 29, 2024 2:44 pm LAB WORK July 30, 2024 5:00 am UPPER GI BLEED July 31, 2024 3:42 pm UPPER GI BLEED August 01, 2024 6:35 am UPPER GI BLEED August 01, 2024 8:28 pm UPPER GI BLEED August 02, 2024 2:51 pm UPPER GI BLEED August 02, 2024 8:31 pm UPPER GI BLEED August 03, 2024 8:06 am UPPER GI BLEED August 03, 2024 11:5 3am UPPER GI BLEED August 04, 2024 5:09 am UPPER GI BLEED August 05, 2024 1:0 3am UPPER GI BLEED August 06, 2024 8:4 3am UPPER GI BLEED August 06, 2024 9:1 1pm UPPER GI BLEED August 07, 2024 8:5 6am UPPER GI BLEED August 08, 2024 7:4 4am UPPER GI BLEED August 08, 2024 6:1 5pm UPPER GI BLEED August 09, 2024 8:0 5am UPPER GI BLEED August 10, 2024 8:4 6am UPPER GI BLEED August 11, 2024 8:2 7am UPPER GI BLEED August 12, 2024 7:4 5am UPPER GI BLEED August 13, 2024 10: 13am [facility] LAB WORK August 14, 2024 5 :00am ANASARCA, SOB August 14, 2024 11: 52am ANASARCA, SOB August 14, 2024 12: 21pm ANASARCA, SOB August 15, 2024 8:1 1am BILATERAL EFFUSION August 15, 2024 9:0 0am ANASARCA, SOB August 15, 2024 9:0 9am AVF CREATION PREOP August 15, 2024 3:3 3pm ANASARCA, SOB August 16, 2024 3:2 2pm ANASARCA, SOB August 17, 2024 9:1 6am [facility] LAB WORK August 22, 2024 5 :00am [facility] LAB WORK August 26, 2024 4 :00am LABWORK August 28, 2024 5:00 am 2 units PRBC August 31, 2024 9:01 am LABWORK September 02, 2024 5:00 am sob September 15, 2024 4:2 2am [facility] LAB WORK September 16, 2024 7 :45am LABWORK September 18, 2024 5:0 0am Additional Source Comments INFORMATION SOURCE (unrecogn ized section and content) DATE CREATED AUTHOR 11/16/2017 [facility] DATE CREATED AUTHOR AUTHOR'S ORGANIZ ATION 12/20/2019 [facility] DATE CREATED AUTHOR AUTHOR'S ORGANIZ ATION 10/26/2023 [facility] DATE CREATED AUTHOR AUTHOR'S ORGANIZ ATION 11/02/2023 [facility] DATE CREATED AUTHOR AUTHOR'S ORGANIZ ATION 12/25/2023 [facility] DATE CREATED AUTHOR AUTHOR'S ORGANIZ ATION 01/05/2024 [facility] DATE CREATED AUTHOR AUTHOR'S ORGANIZ ATION 05/15/2024 [facility] DATE CREATED AUTHOR AUTHOR'S ORGANIZ ATION 06/27/2024 [facility] DATE CREATED AUTHOR AUTHOR'S ORGANIZ ATION 07/21/2024 [facility] DATE CREATED AUTHOR AUTHOR'S ORGANIZ ATION 10/31/2024 [facility] Reason for Visit (unrecogniz ed section and content) Reason Comments Follow-up 6 months Reason Comments Abdominal Pain RLQ Dysuria Cold Sweats Reason Comments Abdominal Pain Reason Comments Post-op monocyrl and steri s trips Reason Comments Physical Therapy Status Reason Specialty Diagnoses / Procedures Referred By Contact Referred To Contact Authorized Physical Therapy / Rehabilitation Diagnoses Hip pain, bilateral Bambi Huynh MD [address] [address] [facility] [address] [place] [address] Reason Comments Cough congestion, runny no se, symptoms x 1 week Reason Comments Follow-up 6 months Reason Comments Follow-up Reason Comments Hypothyroidism needs medication ref ills/ hasn't been seen since 2019 Reason Comments Plantar Warts Possible wart right heel. She will dig out then they will grow back. Cyst Possible cyst left a [facility] x 1 year. Bumps are hard. Reason Comments Follow-up Follow up for wart s x on right heel. Pt states she also had some lab work done for tingling in feet Reason Comments Arm Swelling Specialty Diagnoses / Procedures Referred By Contac t Referred To Contact Diagnoses Acute deep vein thrombosis (DVT) of axillary vein of left upper extremity (HCC) Chest pain, unspecified type Referral ID Status Reason Start Date Expiration Date Visits Re quested Visits Authorized [id number] 1 1 Reason Comments Medication Refill Reason Comments DVT New consult from Dr. Quispe Specialty Diagnoses / Procedures Referred By Contadriana t Referred To Contact Hematology and Oncology Diagnoses Acute deep vein thrombosis (DVT) of axillary vein of left upper extremity (HCC) Ying Quispe DO [address] [place] [address] Lita Gu MD [address] [place] [address] Referral ID Status Reason Start Date Expiration Date Visits Re quested Visits Authorized [id number] Closed 06/27/2022 06/27/2023 1 1 Reason Onset Date Comments Medication Refill 09/16/2022 Reason Comments DVT Reason Onset Date Comments Medication Refill 09/27/2022 Reason Comments dvt Reason Comments Labs Only Reason Onset Date Comments Medication Refill 12/12/2022 Reason Comments biopsy results Specialty Diagnoses / Procedures Referred By Contact Referred To Contact Anticoagulation Monitoring Diagnoses History of deep venous thrombosis Reactive lymphadenopathy Factor V Leiden mutation ([facility]) Lita Gu MD [address] [place] [address] Antico Clinic [address] [place] [address] [place] [address] Referral ID Status Reason Start Date Expiration Date Visits Requested Visits Authorized [id number] Pending Review Specialty Services Required/Pat ient's Best Interest 12/12/2022 02/26/2024 999 999 Reason Comments Follow-up Gap Closure (Health Maintenance) Tetanus : Every 10yrs Never doneCOVID-19 Vaccine(1) Never donePneumococcal Vaccine: Ped or At-Risk(1 - PCV) Never doneHIV Screening Never donePap Smear Never doneZoster Vaccines(1 of 2) Never doneWellness Visit due on 11/18/2022Lipid Panel due on 11/19/2022Mammogram due on 12/07/2022 Reason Onset Date Comments Medication Refill 05/23/2023 Reason Onset Date Comments Medication Refill 06/19/2023 Reason Comments right foot pain Right foot pain+ los s of mobility. X 3-4 weeks. Reason Comments Follow-up 2 week F/U toe issue s. Reason Comments Back Pain Ref by srikanth Puckett r radiculopathy. Patient reports that he biggest issue is her feet. She is having numbness. Specialty Diagnoses / Procedures Referred By Contac t Referred To Contact Neurosurgery Diagnoses Lumbosacral radiculopathy Yfn Puckett Jr., DPM [address] [place] [address] Nenita Khan MD [address] [address] Referral ID Status Reason Start Date Expiration Date Visits Re quested Visits Authorized [id number] Closed 08/01/2023 07/31/2024 1 1 Reason Comments Follow-up S/p EVAR, right perry l stenting Specialty Diagnoses / Procedures Referred By Contac t Referred To Contact Referral ID Status Reason Start Date Expiration Date Visits Re quested Visits Authorized [id number] 1 1 Specialty Diagnoses / Procedures Referred By Contact Referred To Contact Anticoagulation Monitoring Diagnoses History of deep venous thrombosis Reactive lymphadenopathy Factor V Leiden mutation ([facility]) Lita Gu MD [address] [facility] [place] [address] Antico Clinic [address] [facility] [facility] [address] [place] [address] Referral ID Status Reason Start Date Expiration Date V isits Requested Visits Authorized [id number] Pending Review 12/12/2022 02/26/2024 999 999 Reason Comments Follow-up 1 month hospital fol low up s/p Emergent EVAR with renal stenting with Dr. Guerra Reason Onset Date Comments Medication Refill 11/20/2023 Reason Comments Wound Check Specialty Diagnoses / Procedures Referred By Contac t Referred To Contact Wound Care Diagnoses PVD (peripheral vascular disease) ([facility]) Tylor Kruger MD [address] [facility] [address] [place] [address] Op Wound Care [address] [place] [address] Referral ID Status Reason Start Date Expiration Date V isits Requested Visits Authorized [id number] Closed Specialty Services Required/Romi ent's Best Interest 11/21/2023 11/20/2024 1 1 Reason Onset Date Comments Medication Refill 12/06/2023 Referral ID Status Reason Start Date Expiration Date V isits Requested Visits Authorized [id number] Pending Review 12/12/2022 04/10/2025 999 999 Reason Comments Follow-up Reason Onset Date Comments Medication Refill 01/08/2024 Reason Comments Follow-up Reason Comments Follow-up S/P debridement of a bdominal wound with wound vac placement 03/14/24. Reason Onset Date Comments Care Management Referral 07/02/2024 1st att empt Reason Onset Date Comments Care Management Referral 07/03/2024 2nd att empt Reason Onset Date Comments Transition Of Care 08/15/2024 Latricia Garcia RN - 09/14/2018 8:40 PM EDLatricia Maguire RN - 09/14/2018 8:39 PM Adilene Cordoba RN - 09/14/2018 8:14 PM Adilene Cordoba RN - 09/14/2018 8:04 PM EDT ED Notes (unrecognized secti on and content) PT'S PERSONAL BELONGINGS ARE IN A BAG AND WITH PT. EMS HAS ARRIVED AND PT HAS BEEN UPDATED. DR BARLOW AT BEDSIDE TO TALK TO THE PT. Karolyn BECERRA, called for transport to [facility], ETA 25 minutes. Gloria, Transfer center, called to advise that alternate transportation has been arranged. Pt updated on status of EMS arrival. JACKIE Castro, called with 90 minute ETA for [facility]. This nurse to try to turnover to [facility] ED PROVIDER NOTE [facility] EM[facility] NAME: Scott Obregon AGE: 58 y.o. : 1960 VISIT DATE: 09/14/2018 CSN: [id number] PCP: Bambi Huynh MD Chief Complaint Patient presents with Abdominal Pain Patient is here because of right lower abdominal pain. Was seen by family doctor earlier. had a negative urinalysis and sent to hospital for CT abdomen . Patient has no vomiting or nausea or diarrhea. No high fevers or cough. Laying still makes the pain better and walking around makes it worse. This is been going on for about a day or so. Past Medical History: Diagnosis Date Anemia Disease of thyroid gland Hypothyroidism Hyperlipidemia History reviewed. No pertinent surgical history. Family History Problem Relation Age of Onset Heart disease Father Hypertension Father Cancer Father colon Diabetes Father Cancer Sister Breast and Canerous mole Heart disease Sister Diabetes Sister Hypertension Sister Heart disease Other Diabetes Other Thyroid disease Mother Social History Socioeconomic History Marital status: Spouse name: Not on file Number of children: Not on file Years of education: Not on file Highest education level: Not on file Social Needs Financial resource strain: Not on file Food insecurity - worry: Not on file Food insecurity - inability: Not on file Transportation needs - medical: Not on file Transportation needs - non-medical: Not on file Occupational History Not on file Tobacco Use Smoking status: Current Every Day Smoker Packs/day: 0.50 Years: 20.00 Pack years: 10.00 Types: Cigarettes Start date: 05/05/1996 Smokeless tobacco: Never Used Substance and Sexual Activity Alcohol use: Yes Comment: Occassionally Drug use: No Sexual activity: Never Other Topics Concern Not on file Social History Narrative Not on file Previous Medications Medication Sig levothyroxine (SYNTHROID, LEVOTHROID) 125 MCG tablet Take 1 (one) tablet (125 mcg total) by mouth once daily . Allergies Allergen Reactions Iodine And Iodide Containing Products GI Intolerance Seafood, Vomiting Review of Systems Constitutional: Negative. Gastrointestinal: Positive for abdominal pain. Genitourinary: Negative for dysuria and frequency. All other systems reviewed and are negative. Patient Vitals for the past 24 hrs: BP Temp Temp src Pulse Resp SpO2 Height Weight 09/14/18 1836 (!) 169/97 98.6 F (37 C) Oral 65 16 94 % 09/14/18 1733 (!) 171/69 98 F (36.7 C) Oral 72 18 97 % 6' 88.5 kg (195 lb) Physical Exam Constitutional: She appears well-developed. HENT: Mouth/Throat: Oropharynx is clear and moist. Cardiovascular: Normal rate and regular rhythm. Pulmonary/Chest: Effort normal. Abdominal: Bowel sounds are normal. There is tenderness in the right lower quadrant. There is guarding. There is no rigidity. Skin: Skin is warm and dry. Nursing note and vitals reviewed. Laboratory & Radiographic Imaging (if done): Results for orders placed or performed during the hospital encounter of 09/14/18 Chem 7 Result Value Ref Range Sodium 140 135 - 145 mmol/L Potassium 3.5 3.5 - 5.1 mmol/L Chloride 105 98 - 108 mmol/L Bicarbonate 23 21 - 32 mmol/L Creatinine 1.20 (H) 0.40 - 1.10 mg/dL Glucose 201 (H) 65 - 99 mg/dL BUN 12 8 - 25 mg/dL eGFR 51 (L) >=60 mL/min/1.73 m2 BUN/Creatinine Ratio 10.0 10.0 - 20.0 Anion Gap 16 10 - 20 mmol/L CBC Auto Differential Result Value Ref Range WBC 12.09 (H) 4.50 - 11.00 K/mcL RBC 4.79 4.00 - 5.20 M/mcL Hemoglobin 13.9 12.0 - 16.0 g/dL Hematocrit 41.5 36.0 - 46.0 % MCV 86.6 80.0 - 100.0 fL MCH 29.0 26.0 - 34.0 pg MCHC 33.5 31.0 - 37.0 g/dL Platelets 293 150 - 400 K/mcL RDW - CV 13.0 11.6 - 14.8 % MPV 9.4 9.0 - 15.5 fL Neutrophils 64.1 % Lymphocytes 27.5 % Monocytes 6.6 % Eosinophils 1.2 % Basophils 0.3 % IG Percent 0.30 % Neutrophils Abs 7.75 (H) 1.70 - 7.00 K/mcL Lymphocytes Abs 3.32 0.90 - 4.00 K/mcL Monocytes Abs 0.80 0.30 - 0.90 K/mcL Eosinophils Abs 0.14 0.00 - 0.50 K/mcL Basophils Abs 0.04 0.00 - 0.30 K/mcL IG Absolute 0.04 0.00 - 0.30 K/mcL CT Kidney Stone Final Result 1. Findings consistent with moderate to prominent appendicitis. The appendix is enlarged with surrounding inflammation. No sign of appendicolith, abscess formation or free air. 2. Additional chronic and degenerative changes as noted. Workstation ID: [id number] Procedures MDM Number of Diagnoses or Management Options Acute appendicitis, unspecified acute appendicitis type: Diagnosis management comments: Patient is here because of right-sided abdominal pain. We will check a CT abdomen pelvis to evaluate her appendix. Please note the patient is allergic to iodine so we cannot use contrast. CT is done and is consistent with acute appendicitis. Case was discussed with transfer center. Patient has been accepted by surgery at [facility]. Patient will be transferred in stable condition. Patient will be given IV antibiotics and IV fluids in the emergency department prior to transfer . The patient has been informed that they may have pre-hypertension or hypertension based on a blood pressure reading in the Emergency Department. I recommend that the patient call the primary care provider listed on their discharge instructions or a physician of their choice as soon as possible to arrange follow-up in the next 4 weeks for further evaluation of possible pre-hypertension or hypertension. . Clinical Impression: SNOMED CT(R) 1. Acute appendicitis, unspecified acute appendicitis type ACUTE APPENDICITIS ED Disposition ED Disposition Condition Comment Transfer to Another Facility [facility] Mago to be transferred to [facility] Follow-up Information Follow-up information has not been specified. Contact information for after-discharge care Follow-up information has not been specified. Dewayne Barlow MD 09/14/182036 Pt updated on pending results, provided with warm blanket. Denies further need at this time. S.O remains cartside PT to CT. Pt c/o R lower abdominal pain that started yesterday. Was seen by PCP today and had urine sample and blood work done. PCP states urine was clear but white count elevated and is concerned about appendix. documented in this encounter Gave report to Noah MEJIA from OR PT to OR PT from transfer from [facility] for surgery Bed: 01 Expected date: 09/14/18 Expected time: 9:22 PM Means of arrival: Comments: TRANSFER documented in this encounter Татьяна Jenkins MD - 09/14/2018 10:26 PM EDT H&P Notes (unrecognized sect ion and content) [facility] SURGICAL HISTORY & PHYSICAL/CONSULTATION NOTE ASSESS MENT & PLAN: The patient is a 58-year-old female with acute appendicitis. The risks, benefits, and alternatives to laparoscopic possible open appendectomy were discussed with the patient. She was taken to the operating room for laparoscopic appendectomy. The patient received Zosyn at the outside hospital and again preoperatively. CHIEF COMPLAINT: RLQ abdominal pain HISTORY OF PRESENT ILLNESS / INJURY (HPI): [include Pain, Quality, Radiation, Severity, Duration, Timing] The patient is a 58 year old female who was transferred from [facility] for acute appendicitis. Her primary complaint is RLQ abdominal pain. The pain started 10 AM yesterday while the patient was at work. The pain is in the right lower quadrant and described as sharp. The pain seems to be worse after sitting for long periods of time. No associated nausea or vomiting. The patient describes cold sweats overnight, although there were no known elevated temperatures. The pain continued to progress, and the patient reported her symptoms to her PCP, Dr. Ledesma, who ordered lab work and a CT scan. The patient was then referred to the emergency department. PAST MEDICAL HISTORY (PMH): Medical history: Hypothyroidism, diet-controlled hyperlipidemia Surgical history: none Social history: works as [employer] at [employer], [place] -Place of residence (home, NSF, etc): Home with -Tobacco use: quit one month ago -EtOH use: denies -Illicit drug use: denies MEDICATIONS: Outpatient Medications as of 09/14/2018 Medication Sig levothyroxine (SYNTHROID, LEVOTHROID) 125 MCG tablet Take 1 (one) tablet (125 mcg total) by mouth once daily . ALLERGIES: Allergies Allergen Reactions Iodine And Iodide Containing Products GI Intolerance Seafood, Vomiting REVIEW OF SYSTEMS: [List positives and pertinent negatives] Constitutional Symptoms: Negative for unexplained falls, weight loss Eyes: Negative for eye pain or vision changes Ears, Nose, Mouth, Throat: Negative for UTI Respiratory: Negative for cough, shortness of breath Gastrointestinal: Negative for nausea, vomiting, diarrhea Musculoskeletal: + for leg pain for which the patient is undergoing evaluation Neurological: Negative for paresthesia, loss of consciousness PHYSICAL EXAM: Blood pressure (!) 156/72, pulse 80, temperature 98.7 F (37.1 C), temperature source Oral, resp. rate 16, height 6', weight 88.5 kg (195 lb), SpO2 98 %. Body mass index is 26.45 kg/m . GENERAL: Appears age appropriate. No acute distress. NEUROLOGICAL: Alert and oriented X 3. Follows commands with extremities x4, equal strength. Pupils equal, round, reactive to light. EOMI. No focal neurologic deficits noted. EYES/EARS/NOSE/MOUTH/THROAT: Conjunctivae/sclerae/corneas clear. CARDIOVASCULAR: Regular rate and rhythm. 2+ pulses radial RESPIRATORY: Respiratory effort unlabored without use of accessory muscles. ABDOMINAL: Rounded, soft, tender in the RLQ, no rebound tenderness MUSCULOSKELETAL: Extremities atraumatic without gross deformity x4. ROM appropriate for age. No clubbing, cyanosis or joint edema. SKIN: Skin warm and dry. Normal turgor. No rashes or lesions. IMAGING STUDIES: CT scan images and findings personally reviewed: Enlarged appendix with surrounding inflammation LABORATORY STUDIES: Lab Results Component Value Date WBC 12.09 (H) 09/14/2018 HGB 13.9 09/14/2018 HCT 41.5 09/14/2018 MCV 86.6 09/14/2018 PLT 293 09/14/2018 RBC 4.79 09/14/2018 Lab Results Component Value Date GLUCOSE 201 (H) 09/14/2018 CALCIUM 9.4 05/31/2016 NA 140 09/14/2018 K 3.5 09/14/2018 CL 105 09/14/2018 BUN 12 09/14/2018 CREATININE 1.20 (H) 09/14/2018 No results found for: ALT, AST, GGT, ALKPHOS, BILITOT documented in this encounter Sol Cavazos RN - 09/15/2018 12:36 AM EDT Nursing Notes (unrecognized section and content) States she is able to sleep documented in this encounter Op Note - Татьяна Jenkins MD - 09/15/2018 12:49 AM EDT Miscellaneous Notes (unrecog nized section and content) Preoperative diagnosis: Acute appendicitis Postoperative diagnosis: Same Surgeon: Татьяна Jenkins MD Anesthesia: GETA Operative note: The patient was brought to the operating room and placed on the operating room table in the supine position. Preoperative antibiotics were administered (zosyn). After induction of general anesthesia and intubation, the abdomen was prepped and draped in the usual sterile fashion. A time out was completed. A supraumbilical incision was made and carried down to the fascia. The fascia was then divided and the peritoneal cavity was entered. Two 0 Vicryl stay sutures were placed in the midline fascia. The Kellogg cannula was inserted and secured to the fascia using the 0 Vicryl sutures. The abdomen was insufflated to 15 mmHg which the patient tolerated well. A 5 mm suprapubic port and a 10/12 mm left lower quadrant were placed under direct visualization. The peritoneal cavity was inspected. The appendix was identified in the right lower abdomen.It was firm, enlarged, and inflamed. The was localized peritonitis. The appendix was divided at the base of the cecum using an endoscopic linear cutting stapler. The mesoappendix was divided using the harmonic device. The appendix was placed in endoscopic retrieval bag and removed through the suprapubic quadrant port site. The staple line and mesentery were examined and found to be hemostatic. The secondary port sites were removed under direct vision. The fascia at the supraumbilical port site was reapproximated using the previously placed 0 Vicryl sutures along with additional 0 Vicryl suture. All skin incisions were closed using 4-0 Monocryl. Benzoin and Steri-Strips were applied. Patient tolerated the procedure well. The patient was extubated and transferred to the PACU in stable condition. documented in this encounter Care Teams (unrecognized sec tion and content) Team Status: Active Member Role Status Dates Dr. Millie Massey MD Primary Care Provider Active Team Status: Inactive Member Role Status Dates Dr. Ethan Rodriguez MD Primary Care Provider Active Start: May 27, 2024 End: May 27, 2024 Dr. Millie RENE MD Attending Provider Active Start: May 27, 2024 End: May 27, 2024 Team Status: Inactive Member Role Status Dates Dr. Ethan Rodriguez MD Primary Care Provider Active Start: June 03, 2024 End: June 03, 2024 Dr. Millie RENE MD Attending Provider Active Start: June 03, 2024 End: June 03, 2024 Team Status: Inactive Member Role Status Dates Dr. Ethan Rodriguez MD Primary Care Provider Active Start: June 05, 2024 End: June 05, 2024 Dr. Ethan Rodriguez MD Referring Provider Active Start: June 05, 2024 End: June 05, 2024 CHESTER Ramirez Attending Provider Active Star t: June 05, 2024 End: June 05, 2024 Team Status: Inactive Member Role Status Dates Dr. Ethan Rodriguez MD Primary Care Provider Active Start: June 06, 2024 End: June 06, 2024 Dr. Millie RENE MD Attending Provider Active Start: June 06, 2024 End: June 06, 2024 Team Status: Inactive Member Role Status Dates Dr. Ethan Rodriguez MD Primary Care Provider Active Start: June 07, 2024 End: June 07, 2024 Dr. Millie RENE MD Attending Provider Active Start: June 07, 2024 End: June 07, 2024 Team Status: Inactive Member Role Status Dates Dr. Ethan Rodriguez MD Primary Care Provider Active Start: June 21, 2024 End: June 21, 2024 Dr. Millie RENE MD Attending Provider Active Start: June 21, 2024 End: June 21, 2024 Team Status: Active Member Role Status Dates Dr. Ethan Rodriguez MD Primary Care Provider Active Start: June 24, 2024 Dr. Millie RENE MD Attending Provider Active Start: June 24, 2024 Team Status: Inactive Member Role Status Dates Dr. Ethan Rodriguez MD Primary Care Provider Active Start: June 25, 2024 End: June 25, 2024 Dr. Millie RENE MD Attending Provider Active Start: June 25, 2024 End: June 25, 2024 Team Status: Inactive Member Role Status Dates Dr. Ethan Rodriguez MD Primary Care Provider Active Start: July 18, 2024 End: July 18, 2024 Dr. Ethan Rodriguez MD Referring Provider Active Start: July 18, 2024 End: July 18, 2024 OSCAR Aguirre Attending Provider Active S tart: July 18, 2024 End: July 18, 2024 Team Status: Inactive Member Role Status Dates Dr. Ethan Rodriguez MD Primary Care Provider Active Start: July 18, 2024 End: July 18, 2024 Dr. Sheldon Toribio MD Attending Provider Active Sta rt: July 18, 2024 End: July 18, 2024 Dr. Sheldon Toribio MD Emergency Provider Active Sta rt: July 18, 2024 End: July 18, 2024 Team Status: Inactive Member Role Status Dates Dr. Ethan Rodriguez MD Primary Care Provider Active Start: July 23, 2024 End: July 29, 2024 Dr. Sadia Phoenix DO Emergency Provider Active S tart: July 23, 2024 End: July 29, 2024 Dr. Judd Galvin DO Admit Provider Active Star t: July 23, 2024 End: July 29, 2024 Dr. Judd Galvin DO Other Provider Active Star t: July 23, 2024 End: July 29, 2024 Dr. Angie Torres MD Other Provider Active Start: July 23, 2024 End: July 29, 2024 Dr. Mar Mead MD Attending Provider Active Start: July 23, 2024 End: July 29, 2024 Dr. Remedios Kessler DO Other Provider Active Start : July 23, 2024 End: July 29, 2024 Team Status: Active Member Role Status Dates Dr. Ethan Rodriguez MD Primary Care Provider Active Start: July 23, 2024 Dr. Sadia Phoenix DO Emergency Provider Active S tart: July 23, 2024 Dr. Judd Galvin DO Attending Provider Active Start: July 23, 2024 Team Status: Active Member Role Status Dates Dr. Ethan Rodriguez MD Primary Care Provider Active Start: July 23, 2024 Dr. Sadia Phoenix DO Emergency Provider Active S tart: July 23, 2024 Dr. Judd Galvin DO Admit Provider Active Star t: July 23, 2024 Dr. Judd Galvin DO Other Provider Active Star t: July 23, 2024 Dr. Angie Torres MD Other Provider Active Start: July 23, 2024 Dr. Remedios Kessler DO Other Provider Active Start : July 23, 2024 Dr. Nick Gallegos DO Attending Provider Active Start: July 23, 2024 Dr. Mar Mead MD Referring Provider Active Start: July 23, 2024 Team Status: Active Member Role Status Dates Dr. Ethan Rodriguez MD Primary Care Provider Active Start: July 24, 2024 Dr. Sadia Phoenix DO Emergency Provider Active S tart: July 24, 2024 Dr. Judd Galvin DO Admit Provider Active Star t: July 24, 2024 Dr. Judd Galvin DO Other Provider Active Star t: July 24, 2024 Dr. Angie Torres MD Other Provider Active Start: July 24, 2024 Dr. Remedios Kessler DO Attending Provider Active S tart: July 24, 2024 Dr. Remedios Kessler DO Other Provider Active Start : July 24, 2024 Team Status: Active Member Role Status Dates Dr. Ethan Rodriguez MD Primary Care Provider Active Start: July 24, 2024 Dr. Sadia Phoenix DO Emergency Provider Active S tart: July 24, 2024 Dr. Judd Galvin DO Admit Provider Active Star t: July 24, 2024 Dr. Judd Galvin DO Other Provider Active Star t: July 24, 2024 Dr. Angie Torres MD Other Provider Active Start: July 24, 2024 Dr. Remedios Kessler , DO Other Provider Active Start : July 24, 2024 Dr. Nick Gallegos , DO Attending Provider Active Start: July 24, 2024 Dr. Mar Mead MD Referring Provider Active Start: July 24, 2024 Team Status: Active Member Role Status Dates Dr. Ethan Rodriguez MD Primary Care Provider Active Start: July 25, 2024 Dr. Sadia Phoenix , DO Emergency Provider Active S tart: July 25, 2024 Dr. Judd Galvin DO Admit Provider Active Star t: July 25, 2024 Dr. Judd Galvin DO Other Provider Active Star t: July 25, 2024 Dr. Angie Torres MD Other Provider Active Start: July 25, 2024 Dr. Remedios Kessler , DO Attending Provider Active S tart: July 25, 2024 Dr. Remedios Kessler , DO Other Provider Active Start : July 25, 2024 Team Status: Active Member Role Status Dates Dr. Ethan Rodriguez MD Primary Care Provider Active Start: July 26, 2024 Dr. Sadia Phoenix DO Emergency Provider Active S tart: July 26, 2024 Dr. Judd Galvin DO Admit Provider Active Star t: July 26, 2024 Dr. Judd Galvin DO Other Provider Active Star t: July 26, 2024 Dr. Angie Torres MD Other Provider Active Start: July 26, 2024 Dr. Remedios Kessler , DO Attending Provider Active S tart: July 26, 2024 Dr. Remedios Kessler , DO Other Provider Active Start : July 26, 2024 Team Status: Active Member Role Status Dates Dr. Ethan Rodriguez MD Primary Care Provider Active Start: July 26, 2024 Dr. Sadia Phoenix , DO Emergency Provider Active S tart: July 26, 2024 Dr. Judd Galvin DO Admit Provider Active Star t: July 26, 2024 Dr. Judd Galvin , DO Other Provider Active Star t: July 26, 2024 Dr. Angie Torres MD Other Provider Active Start: July 26, 2024 Dr. Remedios Kessler , DO Other Provider Active Start : July 26, 2024 Dr. Nick Gallegos , DO Attending Provider Active Start: July 26, 2024 Dr. Mar Mead MD Referring Provider Active Start: July 26, 2024 Team Status: Active Member Role Status Dates Dr. Ethan Rodriguez MD Primary Care Provider Active Start: July 27, 2024 Dr. Sadia Phoenix , DO Emergency Provider Active S tart: July 27, 2024 Dr. Judd Galvin , Admit Provider Active Star t: July 27, 2024 Dr. Judd Galvin DO Other Provider Active Star t: July 27, 2024 Dr. Angie Torres MD Other Provider Active Start: July 27, 2024 Dr. Remedios Kessler , Attending Provider Active S tart: July 27, 2024 Dr. Remedios Kessler , Other Provider Active Start : July 27, 2024 Team Status: Active Member Role Status Dates Dr. Ethan Rodriguez MD Primary Care Provider Active Start: July 28, 2024 Dr. Sadia Phoenix DO Emergency Provider Active S tart: July 28, 2024 Dr. Judd Galvin DO Admit Provider Active Star t: July 28, 2024 Dr. Judd Galvin DO Other Provider Active Star t: July 28, 2024 Dr. Angie Torres MD Other Provider Active Start: July 28, 2024 Dr. Remedios Kessler , Attending Provider Active S tart: July 28, 2024 Dr. Remedios Kessler , DO Other Provider Active Start : July 28, 2024 Team Status: Active Member Role Status Dates Dr. Ethan Rodriguez MD Primary Care Provider Active Start: July 29, 2024 Dr. Sadia Phoenix , DO Emergency Provider Active S tart: July 29, 2024 Dr. Judd Galvin DO Admit Provider Active Star t: July 29, 2024 Dr. Judd Galvin DO Other Provider Active Star t: July 29, 2024 Dr. Angie Torres MD Other Provider Active Start: July 29, 2024 Dr. Mar Mead MD Attending Provider Active Start: July 29, 2024 Dr. Mar Mead MD Other Provider Active St art: July 29, 2024 Dr. Remedios Kessler DO Other Provider Active Start : July 29, 2024 Team Status: Active Member Role Status Dates Dr. Ethan Rodriguez MD Primary Care Provider Active Start: July 30, 2024 Dr. Millie RENE MD Attending Provider Active Start: July 30, 2024 Team Status: Inactive Member Role Status Dates Dr. Ethan Rodriguez MD Primary Care Provider Active Start: July 31, 2024 End: August 13, 2024 Dr. Noah Avery MD Referring Provider Active S tart: July 31, 2024 End: August 13, 2024 Dr. Noah Avery MD Emergency Provider Active S tart: July 31, 2024 End: August 13, 2024 Dr. Kvng Watkins DO Admit Provider Active Start: July 31, 2024 End: August 13, 2024 Dr. Kvng Watkins DO Other Provider Active Start: July 31, 2024 End: August 13, 2024 Dr. Angie Torres MD Other Provider Active Start: July 31, 2024 End: August 13, 2024 Dr. Mar Mead MD Other Provider Active St art: July 31, 2024 End: August 13, 2024 Dr. Nikolas Magaña MD Attending Provider Active Start: July 31, 2024 End: August 13, 2024 Dr. Judd Galvin DO Other Provider Active Star t: July 31, 2024 End: August 13, 2024 Team Status: Active Member Role Status Dates Dr. Ethan Rodriguez MD Primary Care Provider Active Start: August 01, 2024 Dr. Noah Avery MD Emergency Provider Active S tart: August 01, 2024 Dr. Kvng Watkins DO Admit Provider Active Start: August 01, 2024 Dr. Kvng Watkins DO Attending Provider Active Start: August 01, 2024 Dr. Kvng Watkins DO Other Provider Active Start: August 01, 2024 Dr. Angie oTrres MD Other Provider Active Start: August 01, 2024 Team Status: Active Member Role Status Dates Dr. Ethan Rodriguez MD Primary Care Provider Active Start: August 01, 2024 Dr. Noah Avery MD Referring Provider Active S tart: August 01, 2024 Dr. Noah Avery MD Emergency Provider Active S tart: August 01, 2024 Dr. Kvng Watkins DO Admit Provider Active Start: August 01, 2024 Dr. Kvng aWtkins DO Other Provider Active Start: August 01, 2024 Dr. Angie Torres MD Other Provider Active Start: August 01, 2024 Dr. Mar Mead MD Other Provider Active St art: August 01, 2024 Dr. Nick Gallegos DO Attending Provider Active Start: August 01, 2024 Team Status: Active Member Role Status Dates Dr. Ethan Rodriguez MD Primary Care Provider Active Start: August 02, 2024 Dr. Noah Avery MD Emergency Provider Active S tart: August 02, 2024 Dr. Kvng Watkins DO Admit Provider Active Start: August 02, 2024 Dr. Kvng Watkins DO Other Provider Active Start: August 02, 2024 Dr. Angie Torres MD Other Provider Active Start: August 02, 2024 Dr. Mar Mead MD Attending Provider Active Start: August 02, 2024 Dr. Mar Mead MD Other Provider Active St art: August 02, 2024 Team Status: Active Member Role Status Dates Dr. Ethan Rodriguez MD Primary Care Provider Active Start: August 02, 2024 Dr. Noah Avery MD Referring Provider Active S tart: August 02, 2024 Dr. Noah Avery MD Emergency Provider Active S tart: August 02, 2024 Dr. Kvng Watkins DO Admit Provider Active Start: August 02, 2024 Dr. Kvng Watkins DO Other Provider Active Start: August 02, 2024 Dr. Angie Torres MD Other Provider Active Start: August 02, 2024 Dr. Mar Mead MD Other Provider Active St art: August 02, 2024 Dr. Nick Gallegos DO Attending Provider Active Start: August 02, 2024 Team Status: Active Member Role Status Dates Dr. Ethan Rodriguez MD Primary Care Provider Active Start: August 03, 2024 Dr. Noah Avery MD Referring Provider Active S tart: August 03, 2024 Dr. Noah Avery MD Emergency Provider Active S tart: August 03, 2024 Dr. Kvng Watkins DO Admit Provider Active Start: August 03, 2024 Dr. Kvng Watkins DO Other Provider Active Start: August 03, 2024 Dr. Angie Torres MD Other Provider Active Start: August 03, 2024 Dr. Mar Mead MD Other Provider Active St art: August 03, 2024 Dr. Nick Gallegos DO Attending Provider Active Start: August 03, 2024 Team Status: Active Member Role Status Dates Dr. Ethan Rodriguez MD Primary Care Provider Active Start: August 03, 2024 Dr. Noah Avery MD Emergency Provider Active S tart: August 03, 2024 Dr. Kvng Watkins DO Admit Provider Active Start: August 03, 2024 Dr. Kvng Watkins DO Other Provider Active Start: August 03, 2024 Dr. Angie Torres MD Other Provider Active Start: August 03, 2024 Dr. Mar Mead MD Attending Provider Active Start: August 03, 2024 Dr. Mar Mead MD Other Provider Active St art: August 03, 2024 Team Status: Active Member Role Status Dates Dr. Ethan Rodriguez MD Primary Care Provider Active Start: August 04, 2024 Dr. Noah Avery MD Referring Provider Active S tart: August 04, 2024 Dr. Noah Avery MD Emergency Provider Active S tart: August 04, 2024 Dr. Kvng Watkins DO Admit Provider Active Start: August 04, 2024 Dr. Kvng Watkins DO Other Provider Active Start: August 04, 2024 Dr. Angie Torres MD Other Provider Active Start: August 04, 2024 Dr. Mar Mead MD Other Provider Active St art: August 04, 2024 Dr. Ivone Buckner MD Attending Provider Active Start: August 04, 2024 Team Status: Active Member Role Status Dates Dr. Ethan Rodriguez MD Primary Care Provider Active Start: August 05, 2024 Dr. Noah Avery MD Emergency Provider Active S tart: August 05, 2024 Dr. Kvng Watkins DO Admit Provider Active Start: August 05, 2024 Dr. Kvng Watkins DO Other Provider Active Start: August 05, 2024 Dr. Angie Torres MD Other Provider Active Start: August 05, 2024 Dr. Mar Mead MD Other Provider Active St art: August 05, 2024 Dr. Ivone Buckner MD Attending Provider Active Start: August 05, 2024 Team Status: Active Member Role Status Dates Dr. Ethan Rodriguez MD Primary Care Provider Active Start: August 06, 2024 Dr. Noah Avery MD Emergency Provider Active S tart: August 06, 2024 Dr. Kvng Watkins DO Admit Provider Active Start: August 06, 2024 Dr. Kvng Watkins DO Other Provider Active Start: August 06, 2024 Dr. Angie Torres MD Other Provider Active Start: August 06, 2024 Dr. Judd Galvin DO Attending Provider Active Start: August 06, 2024 Dr. Judd Galvin DO Other Provider Active Star t: August 06, 2024 Dr. Mar Mead MD Other Provider Active St art: August 06, 2024 Team Status: Active Member Role Status Dates Dr. Ethan Rodriguez MD Primary Care Provider Active Start: August 06, 2024 Dr. Noah Avery MD Referring Provider Active S tart: August 06, 2024 Dr. Noah Avery MD Emergency Provider Active S tart: August 06, 2024 Dr. Kvng Watkins DO Admit Provider Active Start: August 06, 2024 Dr. Kvng Watkins DO Other Provider Active Start: August 06, 2024 Dr. Angie Torres MD Other Provider Active Start: August 06, 2024 Dr. Judd Galvin DO Other Provider Active Star t: August 06, 2024 Dr. Mar Mead MD Other Provider Active St art: August 06, 2024 Dr. Nick Gallegos DO Attending Provider Active Start: August 06, 2024 Team Status: Active Member Role Status Dates Dr. Ethan Rodriguez MD Primary Care Provider Active Start: August 07, 2024 Dr. Noah Avery MD Emergency Provider Active S tart: August 07, 2024 Dr. Kvng Watkins DO Admit Provider Active Start: August 07, 2024 Dr. Kvng Watkins DO Other Provider Active Start: August 07, 2024 Dr. Angie Torres MD Other Provider Active Start: August 07, 2024 Dr. Judd Galvin DO Attending Provider Active Start: August 07, 2024 Dr. Judd Galvin DO Other Provider Active Star t: August 07, 2024 Dr. Mar Mead MD Other Provider Active St art: August 07, 2024 Team Status: Active Member Role Status Dates Dr. Ethan Rodriguez MD Primary Care Provider Active Start: August 08, 2024 Dr. Noah Avery MD Emergency Provider Active S tart: August 08, 2024 Dr. Kvng Watkins DO Admit Provider Active Start: August 08, 2024 Dr. Kvng Watkins DO Other Provider Active Start: August 08, 2024 Dr. Angie Torres MD Other Provider Active Start: August 08, 2024 Dr. Judd Galvin DO Attending Provider Active Start: August 08, 2024 Dr. Judd Galvin DO Other Provider Active Star t: August 08, 2024 Dr. Mar Mead MD Other Provider Active St art: August 08, 2024 Team Status: Active Member Role Status Dates Dr. Ethan Rodriguez MD Primary Care Provider Active Start: August 08, 2024 Dr. Noah Avery MD Referring Provider Active S tart: August 08, 2024 Dr. Noah Avery MD Emergency Provider Active S tart: August 08, 2024 Dr. Kvng Watkins DO Admit Provider Active Start: August 08, 2024 Dr. Kvng Watkins DO Other Provider Active Start: August 08, 2024 Dr. Angie Torres MD Other Provider Active Start: August 08, 2024 Dr. Judd Galvin DO Other Provider Active Star t: August 08, 2024 Dr. Mar Mead MD Other Provider Active St art: August 08, 2024 Dr. Nick Gallegos , Attending Provider Active Start: August 08, 2024 Team Status: Active Member Role Status Dates Dr. Ethan Rodriguez MD Primary Care Provider Active Start: August 09, 2024 Dr. Noha Avery MD Emergency Provider Active S tart: August 09, 2024 Dr. Kvng Watkins DO Admit Provider Active Start: August 09, 2024 Dr. Kvng Watkins DO Other Provider Active Start: August 09, 2024 Dr. Angie Torres MD Other Provider Active Start: August 09, 2024 Dr. Judd Galvin DO Attending Provider Active Start: August 09, 2024 Dr. Judd Galvin DO Other Provider Active Star t: August 09, 2024 Dr. Mar Mead MD Other Provider Active St art: August 09, 2024 Team Status: Active Member Role Status Dates Dr. Ethan Rodriguez MD Primary Care Provider Active Start: August 10, 2024 Dr. Noah Avery MD Emergency Provider Active S tart: August 10, 2024 Dr. Kvng Watkins DO Admit Provider Active Start: August 10, 2024 Dr. Kvng Watkins DO Other Provider Active Start: August 10, 2024 Dr. Angie Torres MD Other Provider Active Start: August 10, 2024 Dr. Judd Galvin DO Attending Provider Active Start: August 10, 2024 Dr. Judd Galvin DO Other Provider Active Star t: August 10, 2024 Dr. Mar Mead MD Other Provider Active St art: August 10, 2024 Team Status: Active Member Role Status Dates Dr. Ethan Rodriguez MD Primary Care Provider Active Start: August 11, 2024 Dr. Noah Avery MD Referring Provider Active S tart: August 11, 2024 Dr. Noah Avery MD Emergency Provider Active S tart: August 11, 2024 Dr. Kvng Watkins DO Admit Provider Active Start: August 11, 2024 Dr. Kvng Watkins DO Other Provider Active Start: August 11, 2024 Dr. Angie Torres MD Other Provider Active Start: August 11, 2024 Dr. Judd Galvin DO Attending Provider Active Start: August 11, 2024 Dr. Judd Galvin DO Other Provider Active Star t: August 11, 2024 Dr. Mar Mead MD Other Provider Active St art: August 11, 2024 Team Status: Active Member Role Status Dates Dr. Ethan Rodriguez MD Primary Care Provider Active Start: August 12, 2024 Dr. Noah Avery MD Emergency Provider Active S tart: August 12, 2024 Dr. Kvng Watkins DO Admit Provider Active Start: August 12, 2024 Dr. Kvng Watkins DO Other Provider Active Start: August 12, 2024 Dr. Angie Torres MD Other Provider Active Start: August 12, 2024 Dr. Mar Mead MD Other Provider Active St art: August 12, 2024 Dr. Nikolas Magaña MD Attending Provider Active Start: August 12, 2024 Dr. Nikolas Magaña MD Other Provider Active Sta rt: August 12, 2024 Dr. Judd Galvin DO Other Provider Active Star t: August 12, 2024 Team Status: Active Member Role Status Dates Dr. Ethan Rodriguez MD Primary Care Provider Active Start: August 13, 2024 Dr. Noah Avery MD Emergency Provider Active S tart: August 13, 2024 Dr. Kvng Watkins DO Admit Provider Active Start: August 13, 2024 Dr. Kvng Watkins DO Other Provider Active Start: August 13, 2024 Dr. Angie Torres MD Other Provider Active Start: August 13, 2024 Dr. Mar Mead MD Other Provider Active St art: August 13, 2024 Dr. Nikolas Magaña MD Attending Provider Active Start: August 13, 2024 Dr. Nikolas Magaña MD Other Provider Active Sta rt: August 13, 2024 Dr. Judd Galvin DO Other Provider Active Star t: August 13, 2024 Team Status: Active Member Role Status Dates Dr. Ethan Rodriguez MD Primary Care Provider Active Start: August 14, 2024 Dr. Millie RENE MD Attending Provider Active Start: August 14, 2024 Team Status: Inactive Member Role Status Dates Dr. Millie Massey MD Primary Care Provider Active Start: August 14, 2024 End: August 17, 2024 Dr. Ciaran Rodrigez DO Emergency Provider Activ e Start: August 14, 2024 End: August 17, 2024 Dr. Nikolas Magaña MD Admit Provider Active Sta rt: August 14, 2024 End: August 17, 2024 Dr. Nikolas Magaña MD Attending Provider Active Start: August 14, 2024 End: August 17, 2024 Dr. Angie Torres MD Other Provider Active Start: August 14, 2024 End: August 17, 2024 Team Status: Active Member Role Status Dates Dr. Millie Massey MD Primary Care Provider Active Start: August 14, 2024 Dr. Ciaran Rodrigez DO Emergency Provider Activ e Start: August 14, 2024 Dr. Nikolas Magaña MD Admit Provider Active Sta rt: August 14, 2024 Dr. Nikolas Magaña MD Attending Provider Active Start: August 14, 2024 Dr. Nikolas Magaña MD Other Provider Active Sta rt: August 14, 2024 Dr. Angie Torres MD Other Provider Active Start: August 14, 2024 Team Status: Active Member Role Status Dates Dr. Millie Massey MD Primary Care Provider Active Start: August 15, 2024 Dr. Ciaran Rodrigez DO Emergency Provider Activ e Start: August 15, 2024 Dr. Nikolas Magaña MD Admit Provider Active Sta rt: August 15, 2024 Dr. Nikolas Magaña MD Attending Provider Active Start: August 15, 2024 Dr. Nikolas Magaña MD Other Provider Active Sta rt: August 15, 2024 Dr. Angie Torres MD Other Provider Active Start: August 15, 2024 Team Status: Active Member Role Status Dates Dr. Millie Massey MD Primary Care Provider Active Start: August 15, 2024 Dr. Ciaran oRdrigez DO Emergency Provider Activ e Start: August 15, 2024 Dr. Nikolas Magaña MD Admit Provider Active Sta rt: August 15, 2024 Dr. Nikolas Magaña MD Other Provider Active Sta rt: August 15, 2024 Dr. Angie Torres MD Other Provider Active Start: August 15, 2024 [employer] Attending Provider Active S tart: August 15, 2024 Team Status: Active Member Role Status Dates Dr. Millie Massey MD Primary Care Provider Active Start: August 15, 2024 Dr. Tevin Nicholas MD Attending Provider Active S tart: August 15, 2024 Team Status: Active Member Role Status Dates Dr. Millie Massey MD Primary Care Provider Active Start: August 16, 2024 Dr. Ciaran Rodrigez DO Emergency Provider Activ e Start: August 16, 2024 Dr. Nikolas Magaña MD Admit Provider Active Sta rt: August 16, 2024 Dr. Nikolas Magaña MD Attending Provider Active Start: August 16, 2024 Dr. Nikolas Magaña MD Other Provider Active Sta rt: August 16, 2024 Dr. Angie Torres MD Other Provider Active Start: August 16, 2024 Team Status: Active Member Role Status Dates Dr. Millie Massey MD Primary Care Provider Active Start: August 17, 2024 Dr. Ciaran Rodrigez DO Emergency Provider Activ e Start: August 17, 2024 Dr. Nikolas Magaña MD Admit Provider Active Sta rt: August 17, 2024 Dr. Nikolas Magaña MD Attending Provider Active Start: August 17, 2024 Dr. Nikolas Magaña MD Other Provider Active Sta rt: August 17, 2024 Dr. Angie Torres MD Other Provider Active Start: August 17, 2024 Team Status: Active Member Role Status Dates Dr. Millie Massey MD Primary Care Provider Active Start: August 19, 2024 Dr. Millie RENE MD Attending Provider Active Start: August 19, 2024 Team Status: Active Member Role Status Dates Dr. Millie Massey MD Primary Care Provider Active Start: August 22, 2024 Dr. Millie RENE MD Attending Provider Active Start: August 22, 2024 Team Status: Active Member Role Status Dates Dr. Millie Massey MD Primary Care Provider Active Start: August 26, 2024 Dr. Millie RENE MD Attending Provider Active Start: August 26, 2024 Team Status: Active Member Role Status Dates Dr. Millie Massey MD Primary Care Provider Active Start: August 28, 2024 Dr. Millie RENE MD Attending Provider Active Start: August 28, 2024 Team Status: Active Member Role Status Dates Dr. Millie Massey MD Primary Care Provider Active Start: August 29, 2024 Dr. Millie RENE MD Attending Provider Active Start: August 29, 2024 Team Status: Inactive Member Role Status Dates Dr. Millie Massey MD Primary Care Provider Active Start: August 31, 2024 End: August 31, 2024 Dr. Millie Massey MD Attending Provider Active Start: August 31, 2024 End: August 31, 2024 Dr. Millie Massey MD Referring Provider Active Start: August 31, 2024 End: August 31, 2024 Team Status: Active Member Role Status Dates Dr. Ethan Rodriguez MD Primary Care Provider Active Start: April 24, 2024 Ethan RENE Attending Provider Active Start : April 24, 2024 Ethan RENE Referring Provider Active Start : April 24, 2024 Team Status: Inactive Member Role Status Dates Dr. Ethan Rodriguez MD Primary Care Provider Active Start: April 30, 2024 End: April 30, 2024 Dr. Ethan Rodriguez MD Referring Provider Active Start: April 30, 2024 End: April 30, 2024 Dr. Jeffery Veloz MD Attending Provider Active Start: April 30, 2024 End: April 30, 2024 Team Status: Active Member Role Status Dates Dr. Ethan Rodriguez MD Primary Care Provider Active Start: August 12, 2024 Dr. Noah Avery MD Referring Provider Active S tart: August 12, 2024 Dr. Noah Avery MD Emergency Provider Active S tart: August 12, 2024 Dr. Kvng Watkins DO Admit Provider Active Start: August 12, 2024 Dr. Kvng Watkins DO Other Provider Active Start: August 12, 2024 Dr. Angie Torres MD Other Provider Active Start: August 12, 2024 Dr. Mar Mead MD Other Provider Active St art: August 12, 2024 Dr. Nikolas Magaña MD Attending Provider Active Start: August 12, 2024 Dr. Nikolas Magaña MD Other Provider Active Sta rt: August 12, 2024 Dr. Judd Galvin DO Other Provider Active Star t: August 12, 2024 Team Status: Active Member Role Status Dates Dr. Ethan Rodriguez MD Primary Care Provider Active Start: August 13, 2024 Dr. Noha Avery MD Referring Provider Active S tart: August 13, 2024 Dr. Noah Avery MD Emergency Provider Active S tart: August 13, 2024 Dr. Kvng Watkins DO Admit Provider Active Start: August 13, 2024 Dr. Kvng Watkins , Other Provider Active Start: August 13, 2024 Dr. Angie Torres MD Other Provider Active Start: August 13, 2024 Dr. Mar Mead MD Other Provider Active St art: August 13, 2024 Dr. Nikolas Magaña MD Attending Provider Active Start: August 13, 2024 Dr. Nikolas Magaña MD Other Provider Active Sta rt: August 13, 2024 Dr. Judd Galvin , Other Provider Active Star t: August 13, 2024 Passenger Agent Relationship Specialty Start Date End Date Bambi Huynh MD [address] [place], [place] [address]cy trevizo [facility] [place] [address] PCP - [facility] Provider - [employer] 03/29/18 05/28/50 Ying Quispe, DO [address] [place] [address] PCP - General Family Medicine 05/12/21 Passenger Agent Relationship Specialty Start Date End Date Ying Quispe, DO [address] [place] [address] PCP - General Family Medicine 05/12/21 Passenger Agent Relationship Specialty Start Date End Date Ying Quispe, DO [address] [place] [address] PCP - General Family Medicine 05/12/21 Passenger Agent Relationship Specialty Start Date End Date Ying Quispe, DO [address] [place] [address] PCP - General Family Medicine 05/12/21 Passenger Agent Relationship Specialty Start Date End Date Ying Quispe, DO [address] [place] [address] PCP - General Family Medicine 05/12/21 Passenger Agent Relationship Specialty Start Date End Date Ying Quispe DO [address] [place] [address] PCP - General Family Medicine 05/12/21 Passenger Agent Relationship Specialty Start Date End Date Ying Quispe, DO [address] [place] [address] PCP - General Family Medicine 05/12/21 Ying Quispe, DO [address] [place] [address] PCP - PK Attributed Provider - [facility] 05/29/21 05/28/99 Passenger Agent Relationship Specialty Start Date End Date Ying Quispe, DO [address] [place] [address] PCP - General Family Medicine 05/12/21 Ying Quispe, DO [address] [place] [address] PCP - PK Attributed Provider - [facility] 05/29/21 05/28/99 Passenger Agent Relationship Specialty Start Date End Date Bambi Huynh MD PCP - General Internal Medicine 06/10/16 04/07/21 Makenzie Bajwa, CLIMATOLOGY PROFESSOR [address] [place] [address] [place] [address], [place] [address] PCP - General Nurse Practitioner 04/08/21 05/11/21 Kodak Quispeel Zahra, DO [address] [place] [address] PCP - General Family Medicine 05/12/21 Brittaney Ying Sweeney, DO [address] [place] [address] PCP - PK Attributed Provider - [employer] 03/29/18 08/25/21 Ying Quispe, DO [address] [place] [address] PCP - PK Attributed Provider - [facility] 05/29/21 05/28/99 Passenger Agent Relationship Specialty Start Date End Date Ying Quispe, DO [address] [place] [address] PCP - General Family Medicine 05/12/21 Ying Quispe, DO [address] [place] [address] PCP - PK Attributed Provider - [facility] 05/29/21 05/28/99 Codie Garcia transitional care managerInformatics Spec 06/13/22 06/13/22 Passenger Agent Relationship Specialty Start Date End Date Ying Quispe, DO [address] [place] [address] PCP - General Family Medicine 05/12/21 Ying Quispe, DO [address] [place] [address] PCP - PK Attributed Provider - [facility] 05/29/21 05/28/50 Passenger Agent Relationship Specialty Start Date End Date Ying Quispe, DO [address] [place] [address] PCP - General Family Medicine 05/12/21 Ying Quispe, DO [address] [place] [address] PCP - PK Attributed Provider - [facility] 05/29/21 05/28/50 Passenger Agent Relationship Specialty Start Date End Date Ying Quispe, [address] [place] [address] PCP - General Family Medicine 05/12/21 Ying Quispe DO [address] [place] [address] PCP - PK Attributed Provider - [facility] 05/29/21 05/28/50 Passenger Agent Relationship Specialty Start Date End Date Ying Quispe DO [address] [place] [address] PCP - General Family Medicine 05/12/21 Ying Quispe DO [address] [place] [address] PCP - PK Attributed Provider - [facility] 05/29/21 05/28/50 Passenger Agent Relationship Specialty Start Date End Date Ying Quispe DO [address] [place] [address] PCP - General Family Medicine 05/12/21 Ying Quispe DO [address] [place] [address] PCP - PK Attributed Provider - [facility] 05/29/21 05/28/50 Passenger Agent Relationship Specialty Start Date End Date Ying Quispe DO [address] [place] [address] PCP - General Family Medicine 05/12/21 Ying Quispe DO [address] [place] [address] PCP - PK Attributed Provider - [facility] 05/29/21 05/28/50 Passenger Agent Relationship Specialty Start Date End Date Ying Quispe DO [address] [place] [address] PCP - General Family Medicine 05/12/21 Ying Quispe DO [address] [place] [address] PCP - PK Attributed Provider - [facility] 05/29/21 05/28/50 Passenger Agent Relationship Specialty Start Date End Date Ying Quispe DO [address] [place] [address] PCP - General Family Medicine 05/12/21 Ying Quispe DO [address] [place] [address] PCP - PK Attributed Provider - [facility] 05/29/21 05/28/50 Passenger Agent Relationship Specialty Start Date End Date Ying Quispe DO [address] [place] [address] PCP - General Family Medicine 05/12/21 Ying Quispe DO [address] [place] [address] PCP - PK Attributed Provider - [facility] 05/29/21 05/28/50 Passenger Agent Relationship Specialty Start Date End Date Ying Quispe DO [address] [place] [address] PCP - General Family Medicine 05/12/21 Ying Quispe DO [address] [place] [address] PCP - PK Attributed Provider - [facility] 05/29/21 05/28/50 Passenger Agent Relationship Specialty Start Date End Date Ying Quispe DO [address] [place] [address] PCP - General Family Medicine 05/12/21 Ying Quispe DO [address] [place] [address] PCP - PK Attributed Provider - [facility] 05/29/21 05/28/50 Passenger Agent Relationship Specialty Start Date End Date Ying Quispe DO [address] [place] [address] PCP - General Family Medicine 05/12/21 Ying Quispe DO [address] [place] [address] PCP - PK Attributed Provider - [facility] 05/29/21 05/28/50 Passenger Agent Relationship Specialty Start Date End Date Ying Quispe DO [address] [place] [address] PCP - General Family Medicine 05/12/21 Ying Quispe DO [address] [place] [address] PCP - PK Attributed Provider - [facility] 05/29/21 05/28/50 Passenger Agent Relationship Specialty Start Date End Date Ying Quispe DO [address] [place] [address] PCP - General Family Medicine 05/12/21 Ying Quispe DO [address] [place] [address] PCP - PK Attributed Provider - [facility] 05/29/21 05/28/50 Passenger Agent Relationship Specialty Start Date End Date Ying Quispe DO [address] [place] [address] PCP - General Family Medicine 05/12/21 Ying Quispe DO [address] [place] [address] PCP - PK Attributed Provider - [facility] 05/29/21 05/28/50 Passenger Agent Relationship Specialty Start Date End Date Ying Quispe DO [address] [place] [address] PCP - General Family Medicine 05/12/21 Ying Quispe DO [address] [place] [address] PCP - PK Attributed Provider - [facility] 05/29/21 05/28/50 Passenger Agent Relationship Specialty Start Date End Date Ying Quispe DO [address] [place] [address] PCP - General Family Medicine 05/12/21 Ying Quispe DO [address] [place] [address] PCP - PK Attributed Provider - [facility] 05/29/21 05/28/50 Lita Gu MD [facility] [place] [address] Consulting Physician Hematology/Oncology 04/24/23 Passenger Agent Relationship Specialty Start Date End Date Ying Quispe DO [address] [place] [address] PCP - General Family Medicine 05/12/21 Ying Quispe DO [address] [place] [address] PCP - PK Attributed Provider - [facility] 05/29/21 05/28/50 Lita Gu MD [address] [place] [address] Consulting Physician Hematology/Oncology 04/24/23 Passenger Agent Relationship Specialty Start Date End Date Ying Quispe DO [address] [place] [address] PCP - General Family Medicine 05/12/21 Ying Quispe DO [address] [place] [address] PCP - PK Attributed Provider - [facility] 05/29/21 05/28/50 Lita Gu MD [address] [place] [address] Consulting Physician Hematology/Oncology 04/24/23 Passenger Agent Relationship Specialty Start Date End Date Ying Quispe DO [address] [place] [address] PCP - General Family Medicine 05/12/21 Ying Quispe DO [address] [place] [address] PCP - PK Attributed Provider - [facility] 05/29/21 05/28/50 Lita Gu MD [address] [place] [address] Consulting Physician Hematology/Oncology 04/24/23 Passenger Agent Relationship Specialty Start Date End Date Ying Quispe DO [address] [place] [address] PCP - General Family Medicine 05/12/21 Ying Quispe DO [address] [place] [address] PCP - PK Attributed Provider - [facility] 05/29/21 05/28/50 Lita Gu MD [address] [place] [address] Consulting Physician Hematology/Oncology 04/24/23 Passenger Agent Relationship Specialty Start Date End Date Ying Quispe DO [address] [place] [address] PCP - General Family Medicine 05/12/21 Ying Quispe DO [address] [place] [address] PCP - PK Attributed Provider - [facility] 05/29/21 05/28/50 Lita Gu MD [address] [place] [address] Consulting Physician Hematology/Oncology 04/24/23 Passenger Agent Relationship Specialty Start Date End Date Ying Quispe DO [address] [place] [address] PCP - General Family Medicine 05/12/21 Ying Quispe DO [address] [place] [address] PCP - PK Attributed Provider - [facility] 05/29/21 05/28/50 Lita Gu MD [address] [place] [address] Consulting Physician Hematology/Oncology 04/24/23 Passenger Agent Relationship Specialty Start Date End Date Ying Quispe DO [address] [place] [address] PCP - General Family Medicine 05/12/21 Ying Quispe DO [address] [place] [address] PCP - PK Attributed Provider - [facility] 05/29/21 05/28/50 Lita Gu MD [address] [place] [address] Consulting Physician Hematology/Oncology 04/24/23 Passenger Agent Relationship Specialty Start Date End Date Ying Quispe DO [address] [place] [address] PCP - General Family Medicine 05/12/21 Ying Quispe DO [address] [place] [address] PCP - PK Attributed Provider - [facility] 05/29/21 05/28/50 Lita Gu MD [address] [place] [address] Consulting Physician Hematology/Oncology 04/24/23 Passenger Agent Relationship Specialty Start Date End Date Ying Quispe DO [address] [place] [address] PCP - General Family Medicine 05/12/21 Ying Quispe DO [address] [place] [address] PCP - PK Attributed Provider - [facility] 05/29/21 05/28/50 Lita Gu MD [address] [facility] [place] [address] Consulting Physician Hematology/Oncology 04/24/23 Passenger Agent Relationship Specialty Start Date End Date Ying Quispe DO [address] [place] [address] PCP - General Family Medicine 05/12/21 Ying Quispe DO [address] [place] [address] PCP - PK Attributed Provider - [facility] 05/29/21 05/28/50 Lita Gu MD [address] [place] [address] Consulting Physician Hematology/Oncology 04/24/23 Passenger Agent Relationship Specialty Start Date End Date Ying Quispe DO [address] [place] [address] PCP - General Family Medicine 05/12/21 Ying Quispe DO [address] [place] [address] PCP - PK Attributed Provider - [facility] 05/29/21 05/28/50 Lita Gu MD [address] [place] [address] Consulting Physician Hematology/Oncology 04/24/23 Passenger Agent Relationship Specialty Start Date End Date Ying Quispe DO [address] [place] [address] PCP - General Family Medicine 05/12/21 Ying Quispe DO [address] [place] [address] PCP - PK Attributed Provider - [facility] 05/29/21 05/28/50 Lita Gu MD [address] [place] [address] Consulting Physician Hematology/Oncology 04/24/23 Passenger Agent Relationship Specialty Start Date End Date Ying Quispe DO [address] [place] [address] PCP - General Family Medicine 05/12/21 Ying Quispe DO [address] [place] [address] PCP - PK Attributed Provider - [facility] 05/29/21 05/28/50 Lita Gu MD [address] [place] [address] Consulting Physician Hematology/Oncology 04/24/23 Passenger Agent Relationship Specialty Start Date End Date Ying Quispe DO [address] [place] [address] PCP - General Family Medicine 05/12/21 Ying Quispe DO [address] [place] [address] PCP - PK Attributed Provider - [facility] 05/29/21 05/28/50 Lita Gu MD [address] [place] [address] Consulting Physician Hematology/Oncology 04/24/23 Passenger Agent Relationship Specialty Start Date End Date Ying Quispe DO [address] [place] [address] PCP - General Family Medicine 05/12/21 Ying Quispe DO [address] [place] [address] PCP - PK Attributed Provider - [facility] 05/29/21 05/28/50 Lita Gu MD [address] [place] [address] Consulting Physician Hematology/Oncology 04/24/23 Passenger Agent Relationship Specialty Start Date End Date Ying Quispe DO [address] [place] [address] PCP - General Family Medicine 05/12/21 Ying Quispe DO [address] [place] [address] PCP - PK Attributed Provider - [facility] 05/29/21 05/28/50 Lita Gu MD [address] [place] [address] Consulting Physician Hematology/Oncology 04/24/23 Passenger Agent Relationship Specialty Start Date End Date Ying Quispe DO [address] [place] [address] PCP - General Family Medicine 05/12/21 Ying Quispe DO [address] [place] [address] PCP - PK Attributed Provider - [facility] 05/29/21 05/28/50 Lita Gu MD [address] [place] [address] Consulting Physician Hematology/Oncology 04/24/23 Passenger Agent Relationship Specialty Start Date End Date Ying Quispe DO [address] [place] [address] PCP - General Family Medicine 05/12/21 Ying Quispe DO [address] [place] [address] PCP - PK Attributed Provider - [facility] 05/29/21 05/28/50 Lita Gu MD [address] [place] [address] Consulting Physician Hematology/Oncology 04/24/23 Passenger Agent Relationship Specialty Start Date End Date Ying Quispe DO [address] [place] [address] PCP - General Family Medicine 05/12/21 Ying Quispe DO [address] [place] [address] PCP - PK Attributed Provider - [facility] 05/29/21 05/28/50 Lita Gu MD [address] [place] [address] Consulting Physician Hematology/Oncology 04/24/23 Passenger Agent Relationship Specialty Start Date End Date Ying Quispe DO [address] [place] [address] PCP - General Family Medicine 05/12/21 Ying Quispe DO [address] [place] [address] PCP - PK Attributed Provider - [facility] 05/29/21 05/28/50 Lita Gu MD [address] [place] [address] Consulting Physician Hematology/Oncology 04/24/23 Passenger Agent Relationship Specialty Start Date End Date Ying Quispe DO [address] [place] [address] PCP - General Family Medicine 05/12/21 Ying Quispe DO [address] [place] [address] PCP - PK Attributed Provider - [facility] 05/29/21 05/28/50 Lita Gu MD [address] [place] [address] Consulting Physician Hematology/Oncology 04/24/23 Passenger Agent Relationship Specialty Start Date End Date Ying Quispe DO [address] [place] [address] PCP - General Family Medicine 05/12/21 Ying Quispe DO [address] [place] [address] PCP - PK Attributed Provider - [facility] 05/29/21 05/28/50 Lita Gu MD [address] [place] [address] Consulting Physician Hematology/Oncology 04/24/23 Passenger Agent Relationship Specialty Start Date End Date Ying Quispe DO [address] [place] [address] PCP - General Family Medicine 05/12/21 Ying Quispe DO [address] [place] [address] PCP - PK Attributed Provider - [facility] 05/29/21 05/28/50 Lita Gu MD [address] [place] [address] Consulting Physician Hematology/Oncology 04/24/23 Passenger Agent Relationship Specialty Start Date End Date Ying Quispe DO [address] [place] [address] PCP - General Family Medicine 05/12/21 Ying Quispe DO [address] [place] [address] PCP - PK Attributed Provider - [facility] 05/29/21 05/28/50 Lita Gu MD [address] [place] [address] Consulting Physician Hematology/Oncology 04/24/23 Passenger Agent Relationship Specialty Start Date End Date Ying Quispe DO [address] [place] [address] PCP - General Family Medicine 05/12/21 Ying Quispe DO [address] [place] [address] PCP - PK Attributed Provider - [facility] 05/29/21 05/28/50 Lita Gu MD [address] [place] [address] Consulting Physician Hematology/Oncology 04/24/23 Passenger Agent Relationship Specialty Start Date End Date Ying Quispe DO [address] [place] [address] PCP - General Family Medicine 05/12/21 Ying Quispe DO [address] [place] [address] PCP - PK Attributed Provider - [facility] 05/29/21 05/28/50 Lita Gu MD [address] [place] [address] Consulting Physician Hematology/Oncology 04/24/23 Passenger Agent Relationship Specialty Start Date End Date Ying Quispe DO [address] [place] [address] PCP - General Family Medicine 05/12/21 Ying Quispe DO [address] [place] [address] PCP - PK Attributed Provider - [facility] 05/29/21 05/28/50 Lita Gu MD [address] [place] [address] Consulting Physician Hematology/Oncology 04/24/23 Passenger Agent Relationship Specialty Start Date End Date Ying Quispe DO [address] [place] [address] PCP - General Family Medicine 05/12/21 Ying Quispe DO [address] [place] [address] PCP - PK Attributed Provider - [facility] 05/29/21 05/28/50 Lita Gu MD [address] [place] [address] Consulting Physician Hematology/Oncology 04/24/23 Passenger Agent Relationship Specialty Start Date End Date Ying Quispe DO [address] [place] [address] PCP - General Family Medicine 05/12/21 Ying Quispe DO [address] [place] [address] PCP - PK Attributed Provider - [facility] 05/29/21 05/28/50 Lita Gu MD [address] [place] [address] Consulting Physician Hematology/Oncology 04/24/23 Passenger Agent Relationship Specialty Start Date End Date Ying Quispe DO [address] [place] [address] PCP - General Family Medicine 05/12/21 Ying Quispe DO [address] [place] [address] PCP - PK Attributed Provider - [facility] 05/29/21 05/28/50 Lita uG MD [address] [place] [address] Consulting Physician Hematology/Oncology 04/24/23 Passenger Agent Relationship Specialty Start Date End Date Ying Quispe DO [address] [place] [address] PCP - General Family Medicine 05/12/21 Ying Quispe DO [address] [place] [address] PCP - PK Attributed Provider - [facility] 05/29/21 05/28/50 Lita Gu MD [address] [place] [address] Consulting Physician Hematology/Oncology 04/24/23 Passenger Agent Relationship Specialty Start Date End Date Ying Quispe DO [address] [place] [address] PCP - General Family Medicine 05/12/21 Ying Quispe DO [address] [place] [address] PCP - PK Attributed Provider - [facility] 05/29/21 05/28/50 Lita Gu MD [address] [facility] [place] [id number] Consulting Physician Hematology/Oncology 04/24/23 Yisel Paiz MD [address] [place] [address] Consulting Physician Nephrology 12/27/23 Passenger Agent Relationship Specialty Start Date End Date Ying Quispe DO [address] [place] [address] PCP - General Family Medicine 05/12/21 Ying Quispe DO [address] [place] [address] PCP - PK Attributed Provider - [facility] 05/29/21 05/28/50 Lita Gu MD [address] [place] [address] Consulting Physician Hematology/Oncology 04/24/23 Yisel Paiz MD [address] [place] [address] Consulting Physician Nephrology 12/27/23 Passenger Agent Relationship Specialty Start Date End Date Ying Quispe DO [address] [place] [address] PCP - General Family Medicine 05/12/21 Ying Quispe DO [address] [place] [address] PCP - PK Attributed Provider - [facility] 05/29/21 05/28/50 Lita Gu MD [address] [place] [address] Consulting Physician Hematology/Oncology 04/24/23 Yisel Paiz MD [address] [place] [address] Consulting Physician Nephrology 12/27/23 Passenger Agent Relationship Specialty Start Date End Date Ying Quispe DO [address] [place] [address] PCP - General Family Medicine 05/12/21 Ying Quispe DO [address] [place] [address] PCP - PK Attributed Provider - [facility] 05/29/21 05/28/50 Lita Gu MD [address] [place] [address] Consulting Physician Hematology/Oncology 04/24/23 Yisel Paiz MD [address] [place] [address] Consulting Physician Nephrology 12/27/23 Passenger Agent Relationship Specialty Start Date End Date Ying Quispe DO [address] [place] [address] PCP - General Family Medicine 05/12/21 Ying Quispe DO [address] [place] [address] PCP - PK Attributed Provider - [facility] 05/29/21 05/28/50 Lita Gu MD [address] [place] [address] Consulting Physician Hematology/Oncology 04/24/23 Yisel Paiz MD [address] [place] [address] Consulting Physician Nephrology 12/27/23 Passenger Agent Relationship Specialty Start Date End Date Ying Quispe DO [address] [place] [address] PCP - General Family Medicine 05/12/21 Ying Quispe DO [address] [place] [address] PCP - PK Attributed Provider - [facility] 05/29/21 05/28/50 Lita Gu MD [address] [place] [address] Consulting Physician Hematology/Oncology 04/24/23 Yisel Paiz MD [address] [place] [address] Consulting Physician Nephrology 12/27/23 Passenger Agent Relationship Specialty Start Date End Date Ying Quispe DO [address] [place] [address] PCP - General Family Medicine 05/12/21 Ying Quispe DO [address] [place] [address] PCP - PK Attributed Provider - [facility] 05/29/21 05/28/50 Lita Gu MD [address] [place] [address] Consulting Physician Hematology/Oncology 04/24/23 Yisel Paiz MD [address] [place] [address] Consulting Physician Nephrology 12/27/23 Passenger Agent Relationship Specialty Start Date End Date Ying Quispe DO [address] [place] [address] PCP - General Family Medicine 05/12/21 Ying Quispe DO [address] [place] [address] PCP - PK Attributed Provider - [facility] 05/29/21 05/28/50 Lita Gu MD [address] [place] [address] Consulting Physician Hematology/Oncology 04/24/23 Yisel Paiz MD [address] [place] [address] Consulting Physician Nephrology 12/27/23 Passenger Agent Relationship Specialty Start Date End Date Ying Quispe DO [address] [place] [address] PCP - General Family Medicine 05/12/21 Ying Quispe DO [address] [place] [address] PCP - PK Attributed Provider - [facility] 05/29/21 05/28/50 Lita Gu MD [address] [place] [address] Consulting Physician Hematology/Oncology 04/24/23 Yisel Paiz MD [address] [place] [address] Consulting Physician Nephrology 12/27/23 Passenger Agent Relationship Specialty Start Date End Date Ying Quispe DO [address] [place] [address] PCP - General Family Medicine 05/12/21 Ying Quispe DO [address] [place] [address] PCP - PK Attributed Provider - [facility] 05/29/21 05/28/50 Lita Gu MD [address] [place] [address] Consulting Physician Hematology/Oncology 04/24/23 Yisel Paiz MD [address] [place] [address] Consulting Physician Nephrology 12/27/23 Passenger Agent Relationship Specialty Start Date End Date Ying Quispe DO [address] [place] [address] PCP - General Family Medicine 05/12/21 Ying Quispe DO [address] [place] [address] PCP - PK Attributed Provider - [facility] 05/29/21 05/28/50 Lita Gu MD [address] [place] [address] Consulting Physician Hematology/Oncology 04/24/23 Yisel Paiz MD [address] [place] [address] Consulting Physician Nephrology 12/27/23 Passenger Agent Relationship Specialty Start Date End Date Ying Quispe DO [address] [place] [address] PCP - General Family Medicine 05/12/21 Ying Quispe DO [address] [place] [address] PCP - PK Attributed Provider - [facility] 05/29/21 05/28/50 Lita Gu MD [address] [place] [address] Consulting Physician Hematology/Oncology 04/24/23 Yisel Paiz MD [address] [place] [address] Consulting Physician Nephrology 12/27/23 Passenger Agent Relationship Specialty Start Date End Date Ying Quispe DO [address] [place] [address] PCP - General Family Medicine 05/12/21 Ying Quispe DO [address] [place] [address] PCP - PK Attributed Provider - [facility] 05/29/21 05/28/50 Lita Gu MD [address] [place] [address] Consulting Physician Hematology/Oncology 04/24/23 Yisel Paiz MD [address] [place] [address] Consulting Physician Nephrology 12/27/23 Passenger Agent Relationship Specialty Start Date End Date Ying Quispe DO [address] [place] [address] PCP - General Family Medicine 05/12/21 Ying Quispe DO [address] [place] [address] PCP - KP Attributed Provider - [facility] 05/29/21 05/28/50 Lita Gu MD [address] [place] [address] Consulting Physician Hematology/Oncology 04/24/23 Yisel Paiz MD [address] [place] [address] Consulting Physician Nephrology 12/27/23 Passenger Agent Relationship Specialty Start Date End Date Ying Quispe DO [address] [place] [address] PCP - General Family Medicine 05/12/21 Ying Quispe DO [address] [place] [address] PCP - PK Attributed Provider - [facility] 05/29/21 05/28/50 Lita Gu MD [address] [place] [address] Consulting Physician Hematology/Oncology 04/24/23 Yisel Paiz MD [address] [place] [address] Consulting Physician Nephrology 12/27/23 Passenger Agent Relationship Specialty Start Date End Date Ying Quispe DO [address] [place] [address] PCP - General Family Medicine 05/12/21 Ying Quispe DO [address] [place] [address] PCP - PK Attributed Provider - [facility] 05/29/21 05/28/50 Lita Gu MD [address] [place] [address] Consulting Physician Hematology/Oncology 04/24/23 Yisel Paiz MD [address] [place] [address] Consulting Physician Nephrology 12/27/23 Codie Garcia, transitional care managerInformatics Spec 07/02/24 Passenger Agent Relationship Specialty Start Date End Date Ying Quispe DO [address] [place] [address] PCP - General Family Medicine 05/12/21 Ying Quispe DO [address] [place] [address] PCP - PK Attributed Provider - [facility] 05/29/21 05/28/50 Lita Gu MD [address] [place] [address] Consulting Physician Hematology/Oncology 04/24/23 Yisel Paiz MD [address] [place] [address] Consulting Physician Nephrology 12/27/23 Codie Garcia, transitional care managerInformatics Spec 07/02/24 07/03/24 Passenger Agent Relationship Specialty Start Date End Date Ying Quispe DO [address] [place] [address] PCP - General Family Medicine 05/12/21 Ying Quispe DO [address] [place] [address] PCP - PK Attributed Provider - [facility] 05/29/21 05/28/50 Lita Gu MD [address] [place] [address] Consulting Physician Hematology/Oncology 04/24/23 Yisel Paiz MD [address] [place] [address] Consulting Physician Nephrology 12/27/23 Passenger Agent Relationship Specialty Start Date End Date Ying Quispe DO [address] [place] [address] PCP - General Family Medicine 05/12/21 Ying Quispe DO [address] [place] [address] PCP - PK Attributed Provider - [facility] 05/29/21 05/28/50 Lita Gu MD [address] [place] [address] Consulting Physician Hematology/Oncology 04/24/23 Yisel Paiz MD [address] [place] [address] Consulting Physician Nephrology 12/27/23 Team Status: Inactive Member Role Status Dates Dr. Ethan Rodriguez MD Primary Care Provider Active Start: April 17, 2024 End: April 17, 2024 Ethan RENE Attending Provider Active Start : April 17, 2024 End: April 17, 2024 Ethan RENE Referring Provider Active Start : April 17, 2024 End: April 17, 2024 Team Status: Active Member Role Status Dates Dr. Ethan Rodriguez MD Primary Care Provider Active Start: April 17, 2024 Dr. Angie Torres MD Attending Provider Active Start: April 17, 2024 Dr. Angie Torres MD Referring Provider Active Start: April 17, 2024 Team Status: Active Member Role Status Dates Dr. Millie Massey MD Primary Care Provider Active Start: August 14, 2024 Dr. Ciaran Rodrigez DO Emergency Provider Activ e Start: August 14, 2024 Dr. Nikolas Magaña MD Admit Provider Active Sta rt: August 14, 2024 Dr. Nikolas Magaña MD Attending Provider Active Start: August 14, 2024 Dr. Angie Torres MD Other Provider Active Start: August 14, 2024 Team Status: Inactive Member Role Status Dates Dr. Ethan Rodriguez MD Primary Care Provider Active Start: August 14, 2024 End: August 14, 2024 Dr. Millie RENE MD Attending Provider Active Start: August 14, 2024 End: August 14, 2024 Team Status: Active Member Role Status Dates Dr. Millie Massey MD Primary Care Provider Active Start: August 15, 2024 Dr. Brandt Mendez MD Attending Provider Active Start: August 15, 2024 Dr. Brandt Mendez MD Referring Provider Active Start: August 15, 2024 Team Status: Inactive Member Role Status Dates Dr. Millie Massey MD Primary Care Provider Active Start: August 26, 2024 End: August 26, 2024 Dr. Millie RENE MD Attending Provider Active Start: August 26, 2024 End: August 26, 2024 Dr. Millie RENE MD Referring Provider Active Start: August 26, 2024 End: August 26, 2024 Team Status: Active Member Role Status Dates Dr. Millie Massey MD Primary Care Provider Active Start: September 02, 2024 Dr. Millie RENE MD Attending Provider Active Start: September 02, 2024 Team Status: Active Member Role Status Dates Dr. Millie Massey MD Primary Care Provider Active Start: September 09, 2024 Dr. Millie RENE MD Attending Provider Active Start: September 09, 2024 Team Status: Inactive Member Role Status Dates Dr. Millie Massey MD Primary Care Provider Active Start: August 22, 2024 End: August 22, 2024 Dr. Millie RENE MD Attending Provider Active Start: August 22, 2024 End: August 22, 2024 Team Status: Inactive Member Role Status Dates Dr. Millie Massey MD Primary Care Provider Active Start: August 28, 2024 End: August 28, 2024 Dr. Millie RENE MD Attending Provider Active Start: August 28, 2024 End: August 28, 2024 Team Status: Inactive Member Role Status Dates Dr. Millie Massey MD Primary Care Provider Active Start: September 15, 2024 End: September 15, 2024 Dr. Constantin Jain MD Emergency Provider Active Start: September 15, 2024 End: September 15, 2024 Team Status: Active Member Role Status Dates Dr. Saul Silva MD Attending Provider Active Start: August 15, 2024 [employer] [place] Referring Provider Active Start: August 15, 2024 Team Status: Inactive Member Role Status Dates Dr. Millie Massey MD Primary Care Provider Active Start: September 02, 2024 End: September 02, 2024 Dr. Millie RENE MD Attending Provider Active Start: September 02, 2024 End: September 02, 2024 Team Status: Inactive Member Role Status Dates Dr. Millie Massey MD Primary Care Provider Active Start: September 15, 2024 End: September 15, 2024 Dr. Constantin Jain MD Attending Provider Active Start: September 15, 2024 End: September 15, 2024 Dr. Constantin Jain MD Emergency Provider Active Start: September 15, 2024 End: September 15, 2024 Team Status: Active Member Role Status Dates Dr. Millie Massey MD Primary Care Provider Active Start: September 16, 2024 Dr. Millie RENE MD Attending Provider Active Start: September 16, 2024 Team Status: Inactive Member Role Status Dates Dr. Millie Massey MD Primary Care Provider Active Start: September 18, 2024 End: September 18, 2024 Dr. Millie RENE MD Attending Provider Active Start: September 18, 2024 End: September 18, 2024 Team Status: Active Member Role Status Dates Dr. Millie Massey MD Primary Care Provider Active Start: September 23, 2024 Dr. Millie RENE MD Attending Provider Active Start: September 23, 2024 Team Status: Inactive Member Role Status Dates Dr. Millie Massey MD Primary Care Provider Active Start: September 16, 2024 End: September 16, 2024 Dr. Millie RENE MD Attending Provider Active Start: September 16, 2024 End: September 16, 2024 Scheduled Active and Recently Administ ered Medications (unrecognized section and content) Medication Order 06/09/2022 06/10/2022 06/11/2022 apixaban (ELIQUIS) tablet 10 mg(Linked Group 1) 10 mg, Oral, 2 times daily, First dose (after last modification) on 06/11/22 at 1100, For 7 days, Indication: DVT/PE, How long has patient been on apixaban? 0-7 Days 1219 (Given - Provid er: Jessie Cano RN) apixaban (ELIQUIS) tablet 5 mg(Linked Group 1) 5 mg, Oral, 2 times daily, First dose (after last modification) on 06/18/22 at 0800, Indication: DVT/PE, How long has patient been on apixaban? 0-7 Days levothyroxine (SYNTHROID, LEVOTHROID) tablet 125 mcg 125 mcg, Oral, Daily, First dose on Mon06/10/22 at 1500, For patients on continuous tube feed: Hold TF from 1 hr before until 1 hr after each dose. TF rate may need adjustment to meet caloric needs. 1500 (Not Given - Provider: Svetlana Monaco RN - Reason: Other - Comment: already taken today) 0942 (Given - Provider: Jessie Cano RN) NIFEdipine 24 hr tablet 30 mg 30 mg, Oral, Daily, First dose on Mon06/10/22 at 1600 1608 (Given - Provider: Svetlana Monaco RN) 0942 (Given - Provider: Jessie Cano RN) sodium chloride (PF) (NS) flush 5 mL(Linked Group 2) 5 mL, Intravenous, Every 8 hours scheduled, First dose on Mon06/10/22 at 1400, Saline lock 1400 (Not Given - Provider: Svetlana Monaco RN - Reason: Other - Comment: heparin infusing)2237 (Given - Provider: Stacy Cano RN) 0600 (Given - Provider: Stacy Cano RN)1400 (Due) Continuous Medication Order 06/09/2022 06/10/2022 06/11/2022 heparin (porcine) 25,000 unit/250 mL(100 unit/mL) in D5W infusion (CANCELED) 0-70 Units/kg/hr 77.1 kg (0-53.97 mL/hr, rounded to 0-54 mL/hr), Intravenous, Continuous, Starting on Mon06/10/22 at 1430, Transition to heparin in D5, Choose one of the following protocols: PE / DVT, Bolus options: Protocol WITH initial bolus AND re-bolus, For Downtime Calculator, use: Heparin Infusion Standard 1340 (New Bag - Provider: Svetlana Monaco RN)1342 (Rate/Dose Verify - Provider: Svetlana Monaco RN)1347 (Rate/Dose Verify - Provider: Svetlana Monaco RN)1559 (Rate/Dose Verify - Provider: Svetlana Monaco RN)1813 (Rate/Dose Verify - Provider: Svetlana Monaco RN)1915 (Paused - Provider: Stacy Cano RN)1918 (Restarted - Provider: Stacy Cano RN)2229 (Rate/Dose Change - Provider: Stacy Cano RN)2236 (Rate/Dose Verify - Provider: Stacy Cano RN) 0327 (Rate/Dose Verify - Provider: Stacy Cano RN)0434 (New Bag - Provider: Stacy Cano RN)0623 (Rate/Dose Change - Provider: Stacy Cano RN)0723 (Handoff - Provider: Stacy Cano RN)1009 (Stopped - Provider: Jessie Cano RN) PRN Medication Order 06/09/2022 06/10/2022 06/11/2022 acetaminophen (TYLENOL) tablet 650 mg 650 mg, Oral, Every 4 hours PRN, mild pain, fever 100.4 F or greater, headaches, Starting on Mon06/10/22 at 1238 2237 (Given - Provider: Stacy Cano, JACKIE) heparin bolus from bag 0-10,000 Units (CANCELED) 0-10,000 Units, Intravenous, Continuous PRN, IF the MAR calculator for heparin infusion specifies a bolus from bag is to be administered, Starting on Mon06/10/22 at 1057, Choose one of the following protocols: PE / DVT, Bolus options: Protocol WITH initial bolus AND re-bolus, For Downtime Calculator, use: Heparin Infusion Standard 1343 (Bolus from Bag - Provider: Svetlana Monaco RN) 0623 (Bolus from Bag - Provider: Stacy Cano, JACKIE) ondansetron (ZOFRAN) injection 4 mg(Linked Group 3) 4 mg, Intravenous, Every 6 hours PRN, nausea, vomiting, Starting on Mon06/10/22 at 1238, Use oral route first, if tolerated. ondansetron (ZOFRAN-ODT) disintegrating tablet 4 mg(Linked Group 3) 4 mg, Oral, Every 6 hours PRN, nausea, vomiting, Starting on Mon06/10/22 at 1238, Use oral route first, if tolerated. Formulation requires tablet remain in sealed package until immediately prior to dose being administered. sodium chloride (PF) (NS) flush 5 mL(Linked Group 4) 5 mL, Intravenous, As needed, line care, Starting on Mon06/10/22 at 0905 sodium chloride (PF) (NS) flush 5 mL(Linked Group 2) 5 mL, Intravenous, As needed, line care, Starting on Mon06/10/22 at 1237 sodium chloride 0.9% (NS)(Linked Group 4) 0-150 mL/hr, Intravenous, As needed, To flush line after IV infusions when no maintenance IV ordered or a compatibility issue. Infuse 20ml at the same rate as the secondary infusion, Starting on Mon06/10/22 at 0905, Run as Primary IV. NOT intended for KVO. sodium chloride 0.9% (NS)(Linked Group 2) 0-150 mL/hr, Intravenous, As needed, To flush line after IV infusions when no maintenance IV ordered or a compatibility issue. Infuse 20ml at the same rate as the secondary infusion, Starting on Mon06/10/22 at 1237, Run as Primary IV. NOT intended for KVO. Linked Groups Order Group 1: apixaban (ELIQUIS) tablet 10 mgJump to med 10 mg, Oral, 2 times daily, First dose (after last modification) on 06/11/22 at 1100, For 7 days
Indication: DVT/PE
How long has patient been on apixaban? 0-7 Days Followed by apixaban (ELIQUIS) tablet 5 mgJump to med 5 mg, Oral, 2 times daily, First dose (after last modification) on 06/18/22 at 0800
Indication: DVT/PE
How long has patient been on apixaban? 0-7 Days Group 2: Saline lock IV (CANCELED) Routine, Continuous, Starting on Mon06/10/22 at 1237, Until Specified And sodium chloride (PF) (NS) flush 5 mLJump to med 5 mL, Intravenous, As needed, line care, Starting on Mon06/10/22 at 1237 And sodium chloride (PF) (NS) flush 5 mLJump to med 5 mL, Intravenous, Every 8 hours scheduled, First dose on Mon06/10/22 at 1400
Saline lock
And sodium chloride 0.9% (NS)Jump to med 0-150 mL/hr, Intravenous, As needed, To flush line after IV infusions when no maintenance IV ordered or a compatibility issue. Infuse 20ml at the same rate as the secondary infusion, Starting on Mon06/10/22 at 1237
Run as Primary IV. NOT intended for KVO.
Group 3: ondansetron (ZOFRAN-ODT) disintegrating tablet 4 mgJump to med 4 mg, Oral, Every 6 hours PRN, nausea, vomiting, Starting on Mon06/10/22 at 1238
Use oral route first, if tolerated. Formulation requires tablet remain in sealed package until immediately prior to dose being administered.
Or ondansetron (ZOFRAN) injection 4 mgJump to med 4 mg, Intravenous, Every 6 hours PRN, nausea, vomiting, Starting on Mon06/10/22 at 1238
Use oral route first, if tolerated.
Group 4: Insert peripheral IV (CANCELED) ANY, Once, On Mon06/10/22 at 0906, For 1 occurrence And Saline lock IV (CANCELED) ANY, Once, On Mon06/10/22 at 0906, For 1 occurrence And sodium chloride (PF) (NS) flush 5 mLJump to med 5 mL, Intravenous, As needed, line care, Starting on Mon06/10/22 at 0905 And sodium chloride 0.9% (NS)Jump to med 0-150 mL/hr, Intravenous, As needed, To flush line after IV infusions when no maintenance IV ordered or a compatibility issue. Infuse 20ml at the same rate as the secondary infusion, Starting on Mon06/10/22 at 0905
Run as Primary IV. NOT intended for KVO.
FOR RECORDS PERTAINING TO PATIENTS WHO ARE OR HAVE BEEN ENROLLED IN A CHEMICAL DEPENDENCY/SUBSTANCEABUSE PROGRAM, SOME INFORMATION MAY BE OMITTED. This clinical summary was aggregated from multiple sources. Caution should be exercised in using it in the provision of clinical care. This summary normalizes information from multiple sources, and as a consequence, information in this document may materially change the coding, format and clinical context of patient data. In addition, data may be omitted in some cases. CLINICAL DECISIONS SHOULD BE BASED ON THE PRIMARY CLINICAL RECORDS. [employer] provides no warranty or guarantee of the accuracy or completeness of information in this document.
[2024-11-05 05:07] LABS: HEPATITIS B SURFACE AG Negative (Negative); Hep C Antibodies Non Reactive (Non Reactive); Hepatitis A IgM Antibody Negative (Negative); Hepatitis B Core AB IgM Negative (Negative)
[2024-11-05 08:58] LABS: Absolute Lymphocyte Count 0.44 X10^3/uL (0.83-4.51); Absolute Neutrophil Count 5.2 X10^3/uL (2.0-7.7); Basophil# 0.04 X10^3/uL; Basophil% 0.6 % (0-1); Eosinophil# 0.24 X10^3/uL; Eosinophils% 3.6 % (0-5); Hematocrit 36.9 % (37-47); Hemoglobin 11.4 g/dL (12.0-15.0); Lymphocyte # 0.44 X10^3/ul (0.83-4.51); Lymphocyte % 6.7 % (19-41); Mean Corp Hgb Conc 30.9 g/dL (32-36); Mean Corpuscular Volume 87.2 fL (81-99); Monocyte# 0.64 X10^3/uL; Monocyte% 9.7 % (0-10); NRBC Flagged by Analyzer 0 % (0-5); Neutrophil % 79.1 % (47-70); POSITIVE DIFFERENTIAL YES; Platelet Count 189 K/mm3 (150-450); RBC Distribution Width CV 17.1 % (11.6-14.6); RBC Distribution Width SD 54.8 fl (35.1-43.9); Red Blood Count 4.23 M/mm3 (4.2-5.4); White Blood Count 6.6 K/mm3 (4.4-11.0)
== END ==
LOC: OLS.SW 05:00
PROVIDERS: PCP Internal Medicine; Visit Provider Internal Medicine
DX: I70.262 Atherosclerosis of native arteries of extremities with gangrene, left leg (principal)
CPT/HCPCS: 36415; 80074; 85025; 86140

== ENCOUNTER → 2024-11-05 | Outpatient (REF) | payer OTHER, SELFPAY | LOC: OLS.SW 06:50 | PROVIDERS: PCP Internal Medicine; Visit Provider Internal Medicine | DX: I70.262 Atherosclerosis of native arteries of extremities with gangrene, left leg (principal) | CPT/HCPCS: 87070; 87077; 87205 ==

== ENCOUNTER → 2024-11-12 | Outpatient (REF) | payer OTHER, SELFPAY ==
--- OUTSIDE RECORDS SUMMARY | 2024-11-12 04:13 | XMS RPT_ITS | CCD ---
Author Organization [facility] ion Partnership [facility] Care Team Providers Care Flap Maker Name Role Phone Bambi Huynh Unavailable Bambi Huynh Unavailable Unavail able Bambi Huynh Unavailable Unavail able Bambi Huynh Primary Care Provider Bambi Huynh Primary Care Provider BAMBI HUYNH Primary Care Unavail able REBECA KAUR Attending Unavail able Bambi Huynh Primary Care Provider Bambi Huynh Unavailable Bambi Huynh MD Primary Care Provide r Bambi Huynh MD Unavailable Ying Quispe DO Primary Care Provider [phone] Ying Quispe DO Primary Care Provider Ying Quispe DO Primary Care Provider Ying Quispe DO Unavailable Bambi Huynh MD Primary Care Provide r Makenzie Bajwa CNP Primary Care Provider Ying Quispe DO Unavailable Jose MEJIA, Codie Alfred Unavailable Unav ailable Ying Quispe DO Unavailable Lita Gu MD Unavailable PHYSICIAN, PCP UNKNOWN Primary Care Unavailab LUCRECIA ForteETH E~[phone] Attend ing Unavailable GRESSER, BRONWYN N Referring Unavailable PHYSICIAN, PCP UNKNOWN Primary Care Unavailab le GRESSER, BRONWYN N Attending Unavailable PHYSICIAN, PCP UNKNOWN Primary Care Unavailab le ALLEN FRANK, FRANK~[phone] [facility] Attending Unavailable PHYSICIAN, PCP UNKNOWN Primary Care Unavailab le ALLEN FRANK, FRANK~[phone] [facility] Attending Unavailable GRESSER, BRONWYN N Attending Unavailable [...] PCP UNKNOWN Primary Care Unavailab le BRANDT CAGE~[phone] RAGHAVENDRA Attending Unavailable BRANDT CAGE~[phone] RAGHAVENDRA Referring Unavailable PHYSICIAN, PCP UNKNOWN Primary [...] Unavailable YING QUISPE Primary Care Unavailable PHYSICIANS, [facility] Consulting Unav ailable BRITTANEYYING Primary Care Unavailable [...] Consulting Unavailable KELSEA FLORES Consulting Unavaila ble [facility] Consul ting Unavailable PHYSICIANS, [facility] Consulting Unav ailable LATOSHA PARISI Consulting UnavailSRI [...] TYLOR REYNOLDS Referring Unavailab le BRITTANEY, YING ZAHRA Primary Care Unavailable TYLOR KRUGER Attending Unavailab le KRUGER, TYLOR REYNOLDS Referring Unavailab le BRITTANEY, YING ZAHRA Primary Care Unavailable JUSTINE HODGES Attending Unavailable [...] Unavailable BRITTANEY, YING ZAHRA Primary Care Unavailable BIRTTANIE, LITA Admitting Unavailabl e BRITTANIE, LITA Referring [...] Care Unavailable SARATH REY Attending Unavailabl SARATH aDsilva Referring Unavailabl e BRITTANEY, YING ZAHRA Primary [...] Bennie KENNEDY, Dr. Zamora Referring Provider [phone] Bennie KENNEDY, Dr. Zamora Emergency Provider [phone] Kvng Watkins DO Admit Provider [phone] Dr. Kvng Watkins DO Other Provider [phone] Gómez KENNEDY, Dr. Connor Attending Provider Dr. Kvng Watkins DO Attending Provider Dudley KENNEDY, Dr. Ivone Reese Attending Provider Gómez KENNEDY, Dr. Connor Other Provider Bryson KENNEDY, Dr. Pinto Primary Care Provider [facility], Dr. Wagoner Emergency Provider Gómez KENNEDY, [...] Provider Bryson KENNEDY, Dr. Pinto Referring Provider Kenneth Jain MD, Dr. Killian Emergency Provider Jennifer KENNEDY, Dr. Long Primary Care Provider [phone] Bryson EKNNEDY, Dr. Pinto Attending Provider Unavailvika Rodriguez MD, Dr. Long Referring Provider Ricardo KENNEDY, Dr. Saul Sandy Attending Provider Meghan Turcios Referring Provider Cristobal KENNEDY, Dr. Killian Attending Provider Nikolas Magaña Attending Unavailable MelissaPrince reyesyaprakas Consulting Unavailable Kvng Watkins Admitting Unavailable Noah Avery Referring Unavailable Ethan Rodriguez Primary Care Unavailable Kvng Watkins Consulting Unavailable Koram, Mar Arpita Consulting Unavailable Jopperi, Judd Consulting Unavailable Gudla, Millie Primary Care Unavailable Gudla, Millie Referring Unavailable Gudla, Millie Attending Unavailable Gómez, Nikolas Attending Unavailable Gómez, Nikolas Admitting Unavailable Melissa, Jayaprakas Consulting Unavailable Gudla, Millie Primary Care Unavailable Melissa, Jayaprakas Consulting Unavailable Gudla, Millie Primary Care Unavailable Gómez, Nikolas Attending Unavailable Gómez, Nikolas Admitting Unavailable Gómez, Nikolas Consulting Unavailable Koram, Mar Arpita Attending Unavailable Melissa, Jayaprakas Consulting Unavailable Jopperi, Judd Admitting Unavailable Rodriguez, Ethan Primary Care Unavailable Jopperi, Judd Consulting Unavailable Remedios Kessler Consulting Unavailable Rodriguez Ethan RENE Attending Unavailable Rodriguez, Ethan Primary Care Unavailable Rodriguez, Ethan Primary Care Unavailable Wilbert Cueto Attending Unavailable Constantin Jain Attending Unavailable Gudla, Millie Primary Care Unavailable Rodriguez, Ethan Primary Care Unavailable Gudla Lesli RENEthi Attending Unavailable Rodriguez Ethan RENE Attending Unavailable Rodriguez, Ethan Primary Care Unavailable Rodriguez, Ethan Primary Care Unavailable Gudla Lesli RENEthi Attending Unavailable Rodriguez EDGARD, Ethan Referring Unavailable Rodriguez, Ethan Primary Care Unavailable Rodriguez Ethan RENE Attending Unavailable Jeffery Veloz Attending Unavailable Rodriguez, Ethan Primary Care Unavailable Gudla OLS, Millie Referring Unavailable Gudla, Millie Primary Care Unavailable Gudla Lesli RENEthi Attending Unavailable Ehtan Mayorga Attending Unavailable Rodriguez, Ethan Primary Care Unavailable Rodriguez EDGARD, Ethan Referring Unavailable Gudla Millie RENE Attending Unavailable Rodriguez, Ethan Primary Care Unavailable Gudla Sadie RENEyothi Attending Unavailable Rodriguez, Ethan Primary Care Unavailable Gudla EDGARD Millie Attending Unavailable Rodriguez, Ethan Primary Care Unavailable Rodriguez, Ethan Primary Care Unavailable Judd Galvin Attending Unavailable Melissa, Jayaprakas Consulting Unavailable Rodriguez, Ethan Primary Care Unavailable Noah Avery Referring Unavailable Judd Galvin Attending Unavailable Kvng Watkins Admitting Unavailable Kvng Watkins Consulting Unavailable Koram, Mar Arpita Consulting Unavailable Jopperi, Judd Consulting Unavailable Gómez, Nikolas Attending Unavailable Gómez, Nikolas Consulting Unavailable Svetlana Harrison Attending Unavailable Koram, Mar Arpita Attending Unavailable Ivone Buckner Attending Unavailable Jeffery Veloz Attending Unavailable Rodriguez, Ethan Referring Unavailable Rodriguez, Ethan Primary Care Unavailable Chioma Vigil Attending Unavailable Rodriguez, Ethan Referring Unavailable Rodriguez, Ethan Primary Care Unavailable Friend, Nick Attending Unavailable Gudla, Millie Primary Care Unavailable Gudla Sadie RENEyothi Attending Unavailable Gudla, Millie Primary Care Unavailable Gudla Sadie RENEyothi Attending Unavailable Gudla Sadie RENEyothi Referring Unavailable Gudla, Millie Primary Care Unavailable Gudla Sadie RENEyothi Attending Unavailable Gudla, Millie Primary Care Unavailable Gudla Sadie RENEyothi Attending Unavailable Gudla, Millie Primary Care Unavailable Gudla Sadie RENEyothi Attending Unavailable Gudla, Millie Primary Care Unavailable Gudla Sadie RENEyothi Attending Unavailable Gudla Millie RENE Attending Unavailable Rodriguez, Ethan Primary Care Unavailable Gudla, Millie Primary Care Unavailable Gudla Sadie RENEyothi Attending Unavailable Gudla, Millie Primary Care Unavailable Gudla Sadie RENEyothi Attending Unavailable Rodriguez, Ethan Primary Care Unavailable Gudla Sadie RENEyothi Attending Unavailable Gudla, Millie Primary Care Unavailable Gudla Sadie RENEyothi Attending Unavailable Gudla, Millie Primary Care Unavailable Gudla Sadie RENEyothi Attending Unavailable Gudla, Millie Primary Care Unavailable Gudla Millie RENE Attending Unavailable Rodriguez Ethan RENE Attending Unavailable Rodriguez, Ethan Primary Care Unavailable Rodriguez, Ethan Primary Care Unavailable Melissa, Jayaprakas Referring Unavailable Melissa, Jayaprakas Attending Unavailable ToribioSavanao Attending Unavailable Rodriguez, Ethan Primary Care Unavailable Gudla Millie RENE Attending Unavailable Rodriguez, Ethan Primary Care Unavailable Rodriguez OLSEthan Attending Unavailable Rodriguez, Ethan Primary Care Unavailable Gudla Sadie RENEyothi Attending Unavailable Rodriguez, Ethan Primary Care Unavailable Rodriguez, Ethan Primary Care Unavailable Gudla Sadie RENEyothi Attending Unavailable Koram, Mar Arpita Referring Unavailable Melissa, Jayaprakas Consulting Unavailable Rodriguez, Ethan Primary Care Unavailable Friend, Nick Attending Unavailable Judd Galvin Admitting Unavailable Judd Galvin Consulting Unavailable Remedios Kessler Consulting Unavailable Gudla, Millie Primary Care Unavailable Gudla Millie RENE Attending Unavailable Remedios Kessler Attending Unavailable Gudla, Millie Primary Care Unavailable Tevin Nicholas Attending Unavailable Gudla, Millie Primary Care Unavailable Brandt Mendez Referring Unavailable Brandt Mendez Attending Unavailable Ethan Rodriguez Primary Care Unavailable Ethan Rodriguez Referring Unavailable Adilene Rainey Attending Unavailable Mar Mead Attending Unavailable Mar Mead Consulting Unavailable Kvng Watkins Attending Unavailable Ethan Rodriguez Primary Care Unavailable Sadia Phoenix Attending Unavailable Allergies Allergy Classification Reported Allergen(s) Allergy Type Date of Onset Reaction(s) Facility (20 sources) Iodine Compounds; Translations: [Unknown] Propensity to adverse reactions to drug 7 GI Intolerance, Rash [facility] Work Phone: (6 sources) Iodine And Iodide Containing Products Propensity to adverse reactions to drug 7 GI Intolerance [facility] (20 sources) Shellfish; Translations: [SHELLFISH DERIVED] Propensity to adverse reactions to drug 4 GI Intolerance [facility] (12 sources) Fish derivative; Translations: [FISH DERIVED] Propensity to adverse reactions to drug 4 GI Intolerance [facility] Work Phone: (9 sources) Iodine Drug Allergy 5 [facility] (1 source) Iodine Drug Allergy 5 [facility] Repository Medications Current Medications Medication Drug [...] in 24 hours. take 2 tablets by [facility] every six hours as needed for pain [...] Active docusate sodium 50 mg / sharon osides, [facility] 8.6 mg oral tablet (20 sources) Start: [...] (eight) hours . Active lactobacillus rhamnosus gg [id number] unt oral capsule (18 sources) Start: 07-18-2024 Start: 03-05-2024 take 1 capsule by [facility] once daily in the morning Lactobacillus rhamnosus [...] hours or as directed by MD . Active magnesium hydroxide 80 mg/ml oral [...] Start: 11-24-2023 take 1 tablet by [facility] th twice daily metoprolol tartrate (LOPRESSOR) 25 MG [...] 07-18-2024 multivit,stress formula-zinc Tab (9 sources) Start: 02-28-2024 take 1 tablet by mouth once daily in the morning multivit,stress formula-zinc Tab Take 1 tablet by mouth every morning . 02/28/2024 Active gmyjwqyo-rtt-wlhn fum-folic ac (Thera-M) 19 mg iron- 400 mcg Tab (9 sources) Start: 03-05-2024 take 1 tablet by mouth once daily in the morning wbwdhpwk-cts-qubs fum-folic ac (Thera-M) 19 mg iron- 400 [...] Opioid Antagonist naloxone (NARC AN) 4 mg/actuation [place] Administer 1 (one) spray (4 mg total) [...] 4 mg take 1 tablet by [facility] every eight hours as needed for nausea ondansetron (ZOFRAN) 4 MG tablet Take 1 (one) tablet (4 mg total) by mouth every 8 (eight) hours as needed for nausea . Active oxyCODONE hydrochloride 5 mg oral tablet (20 sources) Opioid Agonist Start: 03-11-2024 End: 07-18-2024 take 1 capsule by mo [facility] every six hours as needed for pain [...] Start: 08-13-2024 End: 08-17-2024 polyethylene glycol 3350 32760 mg powder for oral solution (9 sources) [...] Drug Class(es) Dates Sig (Normalized) Sig (Original) [id number] 200 actuat albuterol 0.09 mg/actuat metered dose [...] injection 2 mg naloxone (NARCAN) 4 mg/actuation [place] (6 sources) End: 11-23-2023 naloxone (NARCAN) 4 mg/actuation [place] Administer 1 (one) spray (4 mg total) into one nostril as needed (OPIOID OVERDOSE) Administer 1 spray into one nostril for known or suspected opioid overdose. If patient worsens or does not respond, may repeat in 2-3 minutes. . 11/23/2023 Discontinued naloxone (NARCAN ) 4 mg/actuation [place] Administer 1 (one) spray (4 mg total) [...] Admin Instructions 2.5mg on M/W/F 5mg on /// RE-CHECK ON 12/20/23 On hold since last week per pt. . 12/13/2023 Suspended Start: 12-13-2023 warfarin (COUM RADHA) 2.5 MG tablet Take 1 (one) tablet (2.5 mg total) by mouth See Admin Instructions 2.5mg on M/W/F 5mg on S/// RE-CHECK ON 12/20/23 . 12/13/2023 Active Start: 11-30-2023 warfarin (COUM RADHA) 7.5 MG tablet Take 5 mg by mouth See Admin Instructions l 2.5 mg on M//F. 5mg all other days. Recheck on 12/20/2023. [...] by the anticoagulation clinic. . 40 tablet 06/19/2023 Suspended take 1 tablet by [facility] once daily warfarin (COUMADIN) 7.5 MG tablet Take 1 (one) tablet (7.5 mg total) by mouth daily On Monday and Monday . Active Problems Active Problems Problem Classification Problem Date Documented Da te Episodic/Chronic Abdominal pain (1 source) Right lower quadrant pain; Translations: [Right lower quadrant abdominal pain] Episodic Acute cerebrovascular disease (1 source) Cerebral [...] Translations: [Close Exposure to Covid-19 Virus] Episodic Lymphadenitis (3 sources) Lymphadenopathy; Translations: [Generalized [...] following surgery on the circulatory system] Onset: Episodic Other aftercare (20 sources) Long-term current use of anticoagulant; Translations: [meterman (current) use of anticoagulants] 07-31-2024 Episodic Other [...] Translations: [Low back pain, unspecified] Onset: 4 Past or Other Problems Problem Classification Problem Date Documented Da te Episodic/Chronic Acute and unspecified renal failure (12 sources) Acute renal failure syndrome; Translations: [Acute kidney failure, unspecified] Onset: 05-01-2024 11-02-2023 Episodic Appendicitis and other appendiceal conditions (20 sources) Acute appendicitis; Translations: [Acute appendicitis with localized peritonitis and gangrene, without perforation] Onset: 09-15-2018 Resolved: 08-15-2022 09-15-2018 Episodic Complication of device; implant or graft (20 sources) Disorder of vascular graft; 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, sequela] Onset: 01-19-2024 01-19-2024 Episodic Fever of unknown origin (1 source) Fever, unspecified; Translations: [Fever, unspecified] Onset: 06-11-2024 Episodic Intestinal infection (20 sources) Clostridium difficile colitis; Translations: [Enterocolitis due to Clostridium difficile, not specified as recurrent] Onset: 02-21-2024 02-21-2024 Episodic Mood disorders (10 sources) Mood disorders [...] Translations: [Low back pain, unspecified] Onset: 09-26-2023 Urinary tract infections (10 sources) Urinary tract infectious disease; Translations: [Urinary tract infection, site not specified] Onset: 08-02-2024 04-19-2024 Episodic Results Test Name Value Interpretation Reference Range Facility Wound Cultureon 11-08-2024 WC Normal [facility] Comment on above: Performed By: #### M 100.2000, M100.3000 ####[facility] [address] [place], [address] CBC W/Diff, Automatedon 10-27 Absolute Lymph 0.44 X10 3/uL Low 0.83-4.51 [facility] Comment on above: Performed By: #### L 100.0100, L3000.0375, L501.6710 ####[facility] [address] [place], [address] Absolute Neut 5.2 X10 3/uL Normal 2.0-7.7 [facility] Comment on above: Performed By: #### L 100.0100, L3000.0375, L501.6710 ####[facility] [address], [address] Basophils/100 WBC (Bld) 0.6 % Normal 0-1 [facility] Comment on above: Performed By: #### L 100.0100, L3000.0375, L501.6710 ####[facility] [address], [address] Eosinophils/100 WBC (Bld) 3.6 % Normal 0-5 [facility] Comment on above: Performed By: #### L 100.0100, L3000.0375, L501.6710 ####[facility] [address] [place], [address] Erythrocyte distribution width (RBC) [Ratio] 17.1 % High 11.6-14.6 [facility] Comment on above: Performed By: #### L 100.0100, L3000.0375, L501.6710 ####[facility] [address], [address] Hematocrit (Bld) [Volume fraction] 36.9 % Low 37-47 [facility] Comment on above: Performed By: #### L 100.0100, L3000.0375, L501.6710 ####[facility] [address] [place], [address] Hemoglobin (Bld) [Mass/Vol] 11.4 g/dL Low 12.0-15.0 [facility] Comment on above: Performed By: #### L 100.0100, L3000.0375, L501.6710 ####[facility] [address] [place], [address] IG% 0.300 Normal 0.0-0.9 [facility] Comment on above: Result Comment: IG% - Immature Granulocytes (promyelocytes, myelocytes andmetamyelocytes) > 1% indicates that a LEFT SHIFT is Present. Performed By: #### L 100.0100, L3000.0375, L501.6710 ####[facility] [address] [place], [address] Lymphocytes/100 WBC (Bld) 6.7 % Low 19-41 [facility] Comment on above: Performed By: #### L 100.0100, L3000.0375, L501.6710 ####[facility] [address] [place], [address] MCH (RBC) [Entitic mass] 27.0 pg Normal 27.0-32.0 [facility] Comment on above: Performed By: #### L 100.0100, L3000.0375, L501.6710 ####[facility] [address] [place], [address] MCHC (RBC) [Mass/Vol] 30.9 g/dL Low 32-[address] [facility] Comment on above: Performed By: #### L 100.0100, L3000.0375, L501.6710 ####[facility] [address] [place], [address] MCV (RBC) [Entitic vol] 87.2 fL Normal 81-99 [facility] Comment on above: Performed By: #### L 100.0100, L3000.0375, L501.6710 ####[facility] [address] [place], [address] Monocytes/100 WBC (Bld) 9.7 % Normal 0-10 [facility] Comment on above: Performed By: #### L 100.0100, L3000.0375, L501.6710 ####[facility] [address] [place], [address] Neutrophils/100 WBC (Bld) 79.1 % High 47-70 [facility] Comment on above: Performed By: #### L 100.0100, L3000.0375, L501.6710 ####[facility] [address] [place], [address] Nucleated RBC (Bld) [#/Vol] 0 10*3/uL Normal 0-5 [facility] Comment on above: Performed By: #### L 100.0100, L3000.0375, L501.6710 ####[facility] [address] [place], [address] Platelet mean volume (Bld) [Entitic vol] 12.0 fL Normal 6.2-12.0 [facility] Comment on above: Performed By: #### L 100.0100, L3000.0375, L501.6710 ####[facility] [address] [place], [address] Platelets (Bld) [#/Vol] 189 10*3/uL Normal 150-450 [facility] Comment on above: Performed By: #### L 100.0100, L3000.0375, L501.6710 ####[facility] [address] [place], [address] RBC (Bld) [#/Vol] 4.23 10*6/uL Normal 4.2-5.4 [facility] Comment on above: Performed By: #### L 100.0100, L3000.0375, L501.6710 ####[facility] [address] [place], [address] RDW SD 54.8 fl High 35.1-43.9 [facility] Comment on above: Performed By: #### L 100.0100, L3000.0375, L501.6710 ####[facility] [address] [place], [address] WBC (Bld) [#/Vol] 6.6 10*3/uL Normal 4.4-11.0 [facility] Comment on above: Performed By: #### L 100.0100, L3000.0375, L501.6710 ####[facility] [address] [place], [address] CRPon 11-05-2024 C-REACTIVE PROT 11.90 mg/L High 0.0-3.0 [facility] Comment on above: Performed By: #### L 100.0100, L3000.0375, L501.6710 ####[facility] [address] [place], [address] Gram Stainon 11-05-2024 GS LEFT GREAT TOE Gram Stain 3+ Gram positive cocci Rare Gram positive rods Rare Epithelial cells No White Blood Cells Normal [facility] Comment on above: Performed By: #### M 100.2000, M100.3000 ####[facility] [address] [place], [address] Hepatitis Panel Acuteon - COMMENT Comment Normal . [facility] Comment on above: Order Comment: 105.1 Result Comment: Not infected with HCV unless early or acute infection issuspected (which may be delayed in an immunocompromisedindividual), or other evidence exists to indicate HCVinfection.Performed at: - [facility] [id number] Director: Manjinder Babb PhD, Phone: [phone] Performed By: #### L 100.0100, L3000.0375, L501.6710 ####[facility] [address] [place], [address] HEP B CORE,IgM Negative Normal Negative [facility] Comment on above: Order Comment: 105.1 Performed By: #### L 100.0100, L3000.0375, L501.6710 ####[facility] [address] [place], [address] HEP B SURF AG Negative Normal Negative [facility] Comment on above: Order Comment: 105.1 Performed By: #### L 100.0100, L3000.0375, L501.6710 ####[facility] [address] [place], [address] HEP C VIRUS AB Non-Reactive Normal Non Reactive [facility] Comment on above: Order Comment: 105.1 Performed By: #### L 100.0100, L3000.0375, L501.6710 ####[facility] [address] [place], [address] HEPATITIS A-IgM Negative Normal Negative [facility] Comment on above: Order Comment: 105.1 Result Comment: A ne gative anti-HAV IgM result suggests no recent orcurrent HAV infection. Performed By: #### L 100.0100, L3000.0375, L501.6710 ####[facility] [address] [place], [address] CBC-Complete Blood Cnt No Di ffon 10-30-2024 Erythrocyte distribution width (RBC) [Ratio] 17.0 % High 11.6-14.6 [facility] Comment on above: Performed By: #### L 100.0500, L500.4050 ####[facility] [address] [place], [address] Hematocrit (Bld) [Volume fraction] 34.9 % Low 37-47 [facility] Comment on above: Performed By: #### L 100.0500, L500.4050 ####[facility] [address] [place], [address] Hemoglobin (Bld) [Mass/Vol] 10.6 g/dL Low 12.0-15.0 [facility] Comment on above: Performed By: #### L 100.0500, L500.4050 ####[facility] [address] [place], [address] MCH (RBC) [Entitic mass] 26.8 pg Low 27.0-32.0 [facility] Comment on above: Performed By: #### L 100.0500, L500.4050 ####[facility] [address] [place], [address] MCHC (RBC) [Mass/Vol] 30.4 g/dL Low 32-[address] [facility] Comment on above: Performed By: #### L 100.0500, L500.4050 ####[facility] [address] [place], [address] MCV (RBC) [Entitic vol] 88.4 fL Normal 81-99 [facility] Comment on above: Performed By: #### L 100.0500, L500.4050 ####[facility] [facility] [address] [place], [address] Platelet mean volume (Bld) [Entitic vol] 11.2 fL Normal 6.2-12.0 [facility] Comment on above: Performed By: #### L 100.0500, L500.4050 ####[facility] [address] [place], [address] Platelets (Bld) [#/Vol] 172 10*3/uL Normal 150-450 [facility] Comment on above: Performed By: #### L 100.0500, L500.4050 ####[facility] [address] [place], [address] RBC (Bld) [#/Vol] 3.95 10*6/uL Low 4.2-5.4 [facility] Comment on above: Performed By: #### L 100.0500, L500.4050 ####[facility] [address] [place], [address] RDW SD 55.4 fl High 35.1-43.9 [facility] Comment on above: Performed By: #### L 100.0500, L500.4050 ####[facility] [address] [place], [address] WBC (Bld) [#/Vol] 5.7 10*3/uL Normal 4.4-11.0 [facility] Comment on above: Performed By: #### L 100.0500, L500.4050 ####[facility] [address] [place], [address] Comprehensive Metabolic Prof vton 10-30-2024 Albumin [Mass/Vol] 2.9 g/dL Low 3.4-4.8 [facility] Comment on above: Performed By: #### L 100.0500, L500.4050 ####[facility] [address] [place], [address] Albumin/Globulin [Mass ratio] 0.8 {ratio} Low 0.9-2.4 [facility] Comment on above: Performed By: #### L 100.0500, L500.4050 ####[facility] [address] [place], [address] ALK PHOS 172 U/L High 35-104 [facility] Comment on above: Performed By: #### L 100.0500, L500.4050 ####[facility] [address] [place], [address] ALT [Catalytic activity/Vol] 173 U/L High <=34 [facility] Comment on above: Performed By: #### L 100.0500, L500.4050 ####[facility] [address] [place], [address] AST [Catalytic activity/Vol] 196 U/L High <=31 [facility] Comment on above: Performed By: #### L 100.0500, L500.4050 ####[facility] [address] [place], [address] Bilirubin [Mass/Vol] 0.26 mg/dL Normal 0.00-1.30 [facility] Comment on above: Performed By: #### L 100.0500, L500.4050 ####[facility] [address] [place], [address] BUN/CRE 44.3 RATIO High 10-20 [facility] Comment on above: Performed By: #### L 100.0500, L500.4050 ####[facility] [address] [place], [address] Calcium [Mass/Vol] 10.9 mg/dL Normal 7.6-11.0 [facility] Comment on above: Performed By: #### L 100.0500, L500.4050 ####[facility] [address] [place], [address] Chloride [Moles/Vol] 93 mmol/L Low 98-108 [facility] Comment on above: Performed By: #### L 100.0500, L500.4050 ####[facility] [address] [place], [address] CO2 [Moles/Vol] 30.0 mmol/L Normal 21.0-32.0 [facility] Comment on above: Performed By: #### L 100.0500, L500.4050 ####[facility] [address] [place], [address] Creatinine [Mass/Vol] 1.57 mg/dL High 0.70-1.[address] [facility] Comment on above: Performed By: #### L 100.0500, L500.4050 ####[facility] [address] [place], [address] GAP 11 Normal 5-15 [facility] Comment on above: Performed By: #### L 100.0500, L500.4050 ####[facility] [address] [place], [address] GFR/1.73 sq M.predicted among non-blacks MDRD (S/P/Bld) [Vol rate/Area] 37 mL/min/{1.73_m2} Low >60 [facility] Comment on above: Result Comment: mL/m in/1.73m2 CKD-EPI Creatinine Equation (2020) Performed By: #### L 100.0500, L500.4050 ####[facility] [address] [place], [address] Globulin (S) [Mass/Vol] 3.8 g/dL Normal 2.2-4.2 [facility] Comment on above: Performed By: #### L 100.0500, L500.4050 ####[facility] [address] [place], [address] Glucose [Mass/Vol] 109 mg/dL High 70-99 [facility] Comment on above: Performed By: #### L 100.0500, L500.4050 ####[facility] [address] [place], [address] Potassium [Moles/Vol] 3.3 mmol/L Normal 3.3-5.[address] [facility] Comment on above: Performed By: #### L 100.0500, L500.4050 ####[facility] [address] [place], [address] Sodium [Moles/Vol] 133 mmol/L Normal 133-145 [facility] Comment on above: Performed By: #### L 100.0500, L500.4050 ####[facility] [address] [place], [address] T PROT 6.7 g/dL Normal 5.9-8.4 [facility] Comment on above: Performed By: #### L 100.0500, L500.4050 ####[facility] [address] [place], [address] Urea nitrogen [Mass/Vol] 70 mg/dL High -19 [facility] Comment on above: Performed By: #### L 100.0500, L500.4050 ####[facility] [address] [place], [address] Anion gap in Serum or Plasma Ordered By: Millie Massey on 09-23-2024 Anion gap [Moles/Vol] 13 mmol/L 5-[address] [facility] BUN/creatinine ratioOrdered By: Millie Massey on 09-23-2024 Urea nitrogen/Creatinine [Mass ratio] 39.5 mg/mg High 10- [facility] Basic Metabolic Profile (BMP )on 09-23-2024 BUN/CRE 39.5 RATIO High - [facility] Comment on above: Order Comment: 206.1 Performed By: #### L 500.2500 ####[facility] [address] [place], [address] Calcium [Mass/Vol] 9.4 mg/dL Normal 7.6-11.0 [facility] Comment on above: Order Comment: 206.1 Performed By: #### L 500.2500 ####[facility] [address] [place], [address] Chloride [Moles/Vol] 94 mmol/L Low 98-108 [facility] Comment on above: Order Comment: 206.1 Performed By: #### L 500.2500 ####[facility] [address] [place], [address] CO2 [Moles/Vol] 23.4 mmol/L Normal 21.0-32.0 [facility] Comment on above: Order Comment: . Performed By: #### L 500.2500 ####[facility] [address] [place], [address] Creatinine [Mass/Vol] 1.42 mg/dL High 0.70-1.[address] [facility] Comment on above: Order Comment: . Performed By: #### L 500.2500 ####[facility] [address] [place], [address] GAP 13 Normal 5-15 [facility] Comment on above: Order Comment: . Performed By: #### L 500.2500 ####[facility] [address] [place], [address] GFR/1.73 sq M.predicted among non-blacks MDRD (S/P/Bld) [Vol rate/Area] 42 mL/min/{1.73_m2} Low >60 [facility] Comment on above: Order Comment: . Result Comment: mL/m in/1.73m2 CKD-EPI Creatinine Equation (2020) Performed By: #### L 500.2500 ####[facility] [address] [place], [address] Glucose [Mass/Vol] 98 mg/dL Normal 70-99 [facility] Comment on above: Order Comment: . Performed By: #### L 500.2500 ####[facility] [address] [place], [address] Potassium [Moles/Vol] 5.1 mmol/L Normal 3.3-5.[address] [facility] Comment on above: Order Comment: . Result Comment: Hemo lysis present, Results??could be affected.?? Performed By: #### L 500.2500 ####[facility] [address] [place], [address] Sodium [Moles/Vol] 131 mmol/L Low 133-145 [facility] Comment on above: Order Comment: 206.1 Performed By: #### L 500.2500 ####[facility] [address] [place], [place], [id number] Urea nitrogen [Mass/Vol] 56 mg/dL High 4-19 [facility] Comment on above: Order Comment: 206.1 Performed By: #### L 500.2500 ####[facility] [address] [place], [place], [address] Carbon dioxide, total [Moles /volume] in Central venous bloodOrdered By: Millie Massey on 09-23-2024 CO2 [Moles/Vol] 23.4 mmol/L 21.0-32.0 [facility] Chloride assayOrdered By: Carter Massey on 09-23-2024 Chloride [Moles/Vol] 94 mmol/L Low 98-108 [facility] Glomerular filtration rate ( GFR) estimation/1.73 sq m using serum, plasma, or whole bOrdered By: Millie Massey on 09-23-2024 GFR/1.73 sq M.predicted among non-blacks MDRD (S/P/Bld) [Vol rate/Area] 42 mL/min/{1.73_m2} Low >60 [facility] Potassium measurement (mass/ volume)Ordered By: Millie Massey on 09-23-2024 Potassium (Unsp spec) [Mass/Vol] 5.1 mmol/L 3.3-5.1 [facility] Serum creatinine measurement (mass/volume)Ordered By: Millie Massey on 09-23-2024 Creatinine [Mass/Vol] 1.42 mg/dL High 0.70-1.[address] [facility] Serum glucose measurement (m ass/volume)Ordered By: Millie Massey on 09-23-2024 Glucose [Mass/Vol] 98 mg/dL 70-99 [facility] Serum or plasma calcium megan urement (mass/volume)Ordered By: Millie Massey on 09-23-2024 Calcium [Mass/Vol] 9.4 mg/dL 7.6-11.0 [facility] Serum or plasma urea nitroge n measurement (mass/volume)Ordered By: Millie Massey on 09-23-2024 Urea nitrogen [Mass/Vol] 56 mg/dL High 4-19 [facility] Sodium levelOrdered By: Silvana Massey on 09-23-2024 Sodium [Moles/Vol] 131 mmol/L Low 133-145 [facility] Anion gap in Serum or Plasma Ordered By: Millie Massey on 09-18-2024 Anion gap [Moles/Vol] 11 mmol/L 5-[address] [facility] BUN/creatinine ratioOrdered By: Millie Massey on 09-18-2024 Urea nitrogen/Creatinine [Mass ratio] 39.3 mg/mg High 10-20 [facility] Bilirubin, totalOrdered By: Millie Massey on 09-18-2024 Bilirubin [Mass/Vol] 0.31 mg/dL 0.00-1.30 [facility] Carbon dioxide, total [Moles /volume] in Central venous bloodOrdered By: Millie Massey on 09-18-2024 CO2 [Moles/Vol] 28.1 mmol/L 21.0-32.0 [facility] Chloride assayOrdered By: Carter Massey on 09-18-2024 Chloride [Moles/Vol] 94 mmol/L Low 98-108 [facility] Comprehensive Metabolic Prof ilon 09-18-2024 Albumin [Mass/Vol] 2.9 g/dL Low 3.4-4.8 [facility] Comment on above: Order Comment: 200 Performed By: #### L 500.4050 ####[facility] [address] [place], [place], [id number] Albumin/Globulin [Mass ratio] 0.7 {ratio} Low 0.9-2.4 [facility] Comment on above: Order Comment: 200 Performed By: #### L 500.4050 ####[facility] [address] [place], [place], [id number] ALK PHOS 117 U/L High 35-104 [facility] Comment on above: Order Comment: 200 Performed By: #### L 500.4050 ####[facility] [address] [place], [address] ALT [Catalytic activity/Vol] 63 U/L High <=34 [facility] Comment on above: Order Comment: 200 Performed By: #### L 500.4050 ####[facility] [address] [place], [address] AST [Catalytic activity/Vol] 76 U/L High <=31 [facility] Comment on above: Order Comment: 200 Performed By: #### L 500.4050 ####[facility] [address] [place], [address] Bilirubin [Mass/Vol] 0.31 mg/dL Normal 0.00-1.30 [facility] Comment on above: Order Comment: 200 Performed By: #### L 500.4050 ####[facility] [address] [place], [address] BUN/CRE 39.3 RATIO High 10-20 [facility] Comment on above: Order Comment: 200 Performed By: #### L 500.4050 ####[facility] [address] [place], [address] Calcium [Mass/Vol] 9.4 mg/dL Normal 7.6-11.0 [facility] Comment on above: Order Comment: 200 Performed By: #### L 500.4050 ####[facility] [address] [place], [address] Chloride [Moles/Vol] 94 mmol/L Low 98-108 [facility] Comment on above: Order Comment: 200 Performed By: #### L 500.4050 ####[facility] [address] [place], [address] CO2 [Moles/Vol] 28.1 mmol/L Normal 21.0-32.0 [facility] Comment on above: Order Comment: 200 Performed By: #### L 500.4050 ####[facility] [address] [place], [address] Creatinine [Mass/Vol] 1.24 mg/dL High 0.70-1.[address] [facility] Comment on above: Order Comment: 200 Performed By: #### L 500.4050 ####[facility] [address] [place], [address] GAP 11 Normal 5-15 [facility] Comment on above: Order Comment: 200 Performed By: #### L 500.4050 ####[facility] [address] [place], [address] GFR/1.73 sq M.predicted among non-blacks MDRD (S/P/Bld) [Vol rate/Area] 49 mL/min/{1.73_m2} Low >60 [facility] Comment on above: Order Comment: 200 Result Comment: mL/m in/1.73m2 CKD-EPI Creatinine Equation (2020) Performed By: #### L 500.4050 ####[facility] [address] [place], [address] Globulin (S) [Mass/Vol] 4.4 g/dL High 2.2-4.2 [facility] Comment on above: Order Comment: 200 Performed By: #### L 500.4050 ####[facility] [address] [place], [address] Glucose [Mass/Vol] 167 mg/dL High 70-99 [facility] Comment on above: Order Comment: 200 Performed By: #### L 500.4050 ####[facility] [address] [place], [address] Potassium [Moles/Vol] 5.1 mmol/L Normal 3.3-5.[address] [facility] Comment on above: Order Comment: 200 Performed By: #### L 500.4050 ####[facility] [address] [place], [address] Sodium [Moles/Vol] 133 mmol/L Normal 133-145 [facility] Comment on above: Order Comment: 200 Performed By: #### L 500.4050 ####[facility] [address] [place], [address] T PROT 7.3 g/dL Normal 5.9-8.4 [facility] Comment on above: Order Comment: 200 Performed By: #### L 500.4050 ####[facility] [address] [place], [address] Urea nitrogen [Mass/Vol] 49 mg/dL High 4-19 [facility] Comment on above: Order Comment: 200 Performed By: #### L 500.4050 ####[facility] [address] [place], [address] Glomerular filtration rate ( GFR) estimation/1.73 sq m using serum, plasma, or whole bOrdered By: Millie Massey on 09-18-2024 GFR/1.73 sq M.predicted among non-blacks MDRD (S/P/Bld) [Vol rate/Area] 49 mL/min/{1.73_m2} Low >60 [facility] No Panel InformationOrdered By: Millie Massey on 09-18-2024 76 U/L High <32 [facility] Potassium measurement (mass/ volume)Ordered By: Millie Massey on 09-18-2024 Potassium (Unsp spec) [Mass/Vol] 5.1 mmol/L 3.3-5.1 [facility] Serum creatinine measurement (mass/volume)Ordered By: Millie Massey on 09-18-2024 Creatinine [Mass/Vol] 1.24 mg/dL High 0.70-1.[address] [facility] Serum globulin measurementOr dered By: Millie Massey on 09-18-2024 Globulin (S) [Mass/Vol] 4.4 g/dL High 2.2-4.2 [facility] Serum glucose measurement (m ass/volume)Ordered By: Millie Massey on 09-18-2024 Glucose [Mass/Vol] 167 mg/dL High 70-99 [facility] Serum or plasma alanine camargo otransferase (ALT) measurementOrdered By: Millie Massey on 09-18-2024 ALT [Catalytic activity/Vol] 63 U/L High <35 [facility] Serum or plasma albumin megan urement (mass/volume)Ordered By: Millie Massey on 09-18-2024 Albumin [Mass/Vol] 2.9 g/dL Low 3.4-4.8 [facility] Serum or plasma albumin/glob ulin mass ratioOrdered By: Millie Massey on 09-18-2024 Albumin/Globulin [Mass ratio] 0.7 {ratio} Low 0.9-2.4 [facility] Serum or plasma alkaline susan sphatase measurementOrdered By: Millie Massey on 09-18-2024 ALP [Catalytic activity/Vol] 117 U/L High 35-104 [facility] Serum or plasma calcium megan urement (mass/volume)Ordered By: Millie Massey on 09-18-2024 Calcium [Mass/Vol] 9.4 mg/dL 7.6-11.0 [facility] Serum or plasma urea nitroge n measurement (mass/volume)Ordered By: Millie Massey on 09-18-2024 Urea nitrogen [Mass/Vol] 49 mg/dL High 4-19 [facility] Sodium levelOrdered By: Silvana Massey on 09-18-2024 Sodium [Moles/Vol] 133 mmol/L 133-145 [facility] Total proteinOrdered By: Lesli Massey on 09-18-2024 Protein [Mass/Vol] 7.3 g/dL 5.9-8.4 [facility] Anion gap in Serum or Plasma Ordered By: Millie Massey on 09-16-2024 Anion gap [Moles/Vol] 12 mmol/L 5-[address] [facility] BUN/creatinine ratioOrdered By: Millie Massey on 09-16-2024 Urea nitrogen/Creatinine [Mass ratio] 36.5 mg/mg High 10-20 [facility] Bilirubin, totalOrdered By: Millie Massey on 09-16-2024 Bilirubin [Mass/Vol] 0.42 mg/dL 0.00-1.30 [facility] CBC-Complete Blood Cnt No Di ffon 09-16-2024 Erythrocyte distribution width (RBC) [Ratio] 19.6 % High 11.6-14.6 [facility] Comment on above: Performed By: #### L 100.0500, L500.4050 ####[facility] [address] [place], [address] Hematocrit (Bld) [Volume fraction] 29.2 % Low 37-47 [facility] Comment on above: Performed By: #### L 100.0500, L500.4050 ####[facility] [address] [place], [address] Hemoglobin (Bld) [Mass/Vol] 8.4 g/dL Low 12.0-15.0 [facility] Comment on above: Performed By: #### L 100.0500, L500.4050 ####[facility] [address] [place], [address] MCH (RBC) [Entitic mass] 26.8 pg Low 27.0-32.0 [facility] Comment on above: Performed By: #### L 100.0500, L500.4050 ####[facility] [address] [place], [address] MCHC (RBC) [Mass/Vol] 28.8 g/dL Low 32-[address] [facility] Comment on above: Performed By: #### L 100.0500, L500.4050 ####[facility] [address] [place], [address] MCV (RBC) [Entitic vol] 93.3 fL Normal 81-99 [facility] Comment on above: Performed By: #### L 100.0500, L500.4050 ####[facility] [address] [place], [address] Platelet mean volume (Bld) [Entitic vol] 10.4 fL Normal 6.2-12.0 [facility] Comment on above: Performed By: #### L 100.0500, L500.4050 ####[facility] [address] [place], [address] Platelets (Bld) [#/Vol] 180 10*3/uL Normal 150-450 [facility] Comment on above: Performed By: #### L 100.0500, L500.4050 ####[facility] [address] [place], [address] RBC (Bld) [#/Vol] 3.13 10*6/uL Low 4.2-5.4 [facility] Comment on above: Performed By: #### L 100.0500, L500.4050 ####[facility] [address] [place], [address] RDW SD 65.9 fl High 35.1-43.9 [facility] Comment on above: Performed By: #### L 100.0500, L500.4050 ####[facility] [address] [place], [address] WBC (Bld) [#/Vol] 7.5 10*3/uL Normal 4.4-11.0 [facility] Comment on above: Performed By: #### L 100.0500, L500.4050 ####[facility] [address] [place], [address] Carbon dioxide, total [Moles /volume] in Central venous bloodOrdered By: Millie Massey on 09-16-2024 CO2 [Moles/Vol] 24.4 mmol/L 21.0-32.0 [facility] Chloride assayOrdered By: Carter Massey on 09-16-2024 Chloride [Moles/Vol] 94 mmol/L Low 98-108 [facility] Comprehensive Metabolic Prof ilon 09-16-2024 Albumin [Mass/Vol] 2.8 g/dL Low 3.4-4.8 [facility] Comment on above: Performed By: #### L 100.0500, L500.4050 ####[facility] [address] [place], [address] Albumin/Globulin [Mass ratio] 0.6 {ratio} Low 0.9-2.4 [facility] Comment on above: Performed By: #### L 100.0500, L500.4050 ####[facility] [address] [place], [address] ALK PHOS 126 U/L High 35-104 [facility] Comment on above: Performed By: #### L 100.0500, L500.4050 ####[facility] [address] [place], [address] ALT [Catalytic activity/Vol] 93 U/L High <=34 [facility] Comment on above: Performed By: #### L 100.0500, L500.4050 ####[facility] [address] [place], [address] AST [Catalytic activity/Vol] 130 U/L High <=31 [facility] Comment on above: Result Comment: Hemo lysis present, Results??could be affected.?? Performed By: #### L 100.0500, L500.4050 ####[facility] [address] [place], [address] Bilirubin [Mass/Vol] 0.42 mg/dL Normal 0.00-1.30 [facility] Comment on above: Performed By: #### L 100.0500, L500.4050 ####[facility] [address] [place], [address] BUN/CRE 36.5 RATIO High 10-20 [facility] Comment on above: Performed By: #### L 100.0500, L500.4050 ####[facility] [address] [place], [address] Calcium [Mass/Vol] 9.8 mg/dL Normal 7.6-11.0 [facility] Comment on above: Performed By: #### L 100.0500, L500.4050 ####[facility] [address] [place], [address] Chloride [Moles/Vol] 94 mmol/L Low 98-108 [facility] Comment on above: Performed By: #### L 100.0500, L500.4050 ####[facility] [address] [place], [address] CO2 [Moles/Vol] 24.4 mmol/L Normal 21.0-32.0 [facility] Comment on above: Performed By: #### L 100.0500, L500.4050 ####[facility] [address] [place], [address] Creatinine [Mass/Vol] 1.46 mg/dL High 0.70-1.[address] [facility] Comment on above: Performed By: #### L 100.0500, L500.4050 ####[facility] [address] [place], [address] GAP 12 Normal 5-15 [facility] Comment on above: Performed By: #### L 100.0500, L500.4050 ####[facility] [facility] [address] [place], [address] GFR/1.73 sq M.predicted among non-blacks MDRD (S/P/Bld) [Vol rate/Area] 40 mL/min/{1.73_m2} Low >60 [facility] Comment on above: Result Comment: mL/m in/1.73m2 CKD-EPI Creatinine Equation (2020) Performed By: #### L 100.0500, L500.4050 ####[facility] [address] [place], [address] Globulin (S) [Mass/Vol] 5.0 g/dL High 2.2-4.2 [facility] Comment on above: Performed By: #### L 100.0500, L500.4050 ####[facility] [address] [place], [address] Glucose [Mass/Vol] 85 mg/dL Normal 70-99 [facility] Comment on above: Performed By: #### L 100.0500, L500.4050 ####[facility] [address] [place], [address] Potassium [Moles/Vol] 4.8 mmol/L Normal 3.3-5.[address] [facility] Comment on above: Result Comment: Hemo lysis present, Results??could be affected.?? Performed By: #### L 100.0500, L500.4050 ####[facility] [address] [place], [address] Sodium [Moles/Vol] 130 mmol/L Low 133-145 [facility] Comment on above: Performed By: #### L 100.0500, L500.4050 ####[facility] [address] [place], [address] T PROT 7.7 g/dL Normal 5.9-8.4 [facility] Comment on above: Performed By: #### L 100.0500, L500.4050 ####[facility] [address] [place], [address] Urea nitrogen [Mass/Vol] 53 mg/dL High 4-19 [facility] Comment on above: Performed By: #### L 100.0500, L500.4050 ####[facility] [address] [place], [address] Erythrocyte distribution wid th ratioOrdered By: Millie Massey on 09-16-2024 Erythrocyte distribution width (RBC) [Ratio] 19.6 % High 11.6-14.6 [facility] Erythrocyte distribution wid th standard deviationOrdered By: Millie Massey on 09-16-2024 Erythrocyte distribution width (RBC) [Ratio] 65.9 fl High 35.1-43.9 [facility] Glomerular filtration rate ( GFR) estimation/1.73 sq m using serum, plasma, or whole bOrdered By: Millie Massey on 09-16-2024 GFR/1.73 sq M.predicted among non-blacks MDRD (S/P/Bld) [Vol rate/Area] 40 mL/min/{1.73_m2} Low >60 [facility] Hematocrit Auto (Bld) [Volum e fraction]Ordered By: Millie Massey on 09-16-2024 Hematocrit (Bld) [Volume fraction] 29.2 % Low 37-47 [facility] Hemoglobin measurementOrdere d By: Millie Massey on 09-16-2024 Hemoglobin (Bld) [Mass/Vol] 8.4 g/dL Low 12.0-15.0 [facility] MCV (mean corpuscular volume ) determinationOrdered By: Millie Massey on 09-16-2024 MCV (RBC) [Entitic vol] 93.3 fL 81-99 [facility] Mean corpuscular hemoglobin (MCH) determinationOrdered By: Millie Massey on 09-16-2024 MCH (RBC) [Entitic mass] 26.8 pg Low 27.0-32.0 [facility] No Panel InformationOrdered By: Millie Massey on 09-16-2024 130 U/L High <32 [facility] Platelet countOrdered By: Carter Massey on 09-16-2024 Platelets (Bld) [#/Vol] 180 10*3/uL 150-450 [facility] Potassium measurement (mass/ volume)Ordered By: Millie Massey on 09-16-2024 Potassium (Unsp spec) [Mass/Vol] 4.8 mmol/L 3.3-5.1 [facility] RBC Auto (Bld) [#/Vol]Ordere d By: Millie Massey on 09-16-2024 RBC (Bld) [#/Vol] 3.13 10*6/uL Low 4.2-5.4 [facility] Serum creatinine measurement (mass/volume)Ordered By: Millie Massey on 09-16-2024 Creatinine [Mass/Vol] 1.46 mg/dL High 0.70-1.[address] [facility] Serum globulin measurementOr dered By: Millie Massey on 09-16-2024 Globulin (S) [Mass/Vol] 5.0 g/dL High 2.2-4.2 [facility] Serum glucose measurement (m ass/volume)Ordered By: Millie Massey on 09-16-2024 Glucose [Mass/Vol] 85 mg/dL 70-99 [facility] Serum or plasma alanine camargo otransferase (ALT) measurementOrdered By: Millie Massey on 09-16-2024 ALT [Catalytic activity/Vol] 93 U/L High <35 [facility] Serum or plasma albumin megan urement (mass/volume)Ordered By: Millie Massey on 09-16-2024 Albumin [Mass/Vol] 2.8 g/dL Low 3.4-4.8 [facility] Serum or plasma albumin/glob ulin mass ratioOrdered By: Millie Massey on 09-16-2024 Albumin/Globulin [Mass ratio] 0.6 {ratio} Low 0.9-2.4 [facility] Serum or plasma alkaline susan sphatase measurementOrdered By: Millie Massey on 09-16-2024 ALP [Catalytic activity/Vol] 126 U/L High 35-104 [facility] Serum or plasma calcium megan urement (mass/volume)Ordered By: Millie Massey on 09-16-2024 Calcium [Mass/Vol] 9.8 mg/dL 7.6-11.0 [facility] Serum or plasma urea nitroge n measurement (mass/volume)Ordered By: Millie Massey on 09-16-2024 Urea nitrogen [Mass/Vol] 53 mg/dL High - [facility] Sodium levelOrdered By: Silvana Massey on 09-16-2024 Sodium [Moles/Vol] 130 mmol/L Low 133-145 [facility] Total proteinOrdered By: Lesli mancia Alyjames on 09-16-2024 Protein [Mass/Vol] 7.7 g/dL 5.9-8.4 [facility] White blood cell (WBC) count Ordered By: Millie Massey on 09-16-2024 WBC (Bld) [#/Vol] 7.5 10*3/uL 4.4-11.0 [facility] 12 Lead EKGon 09-15-2024 12 Lead EKG Normal [facility] Absolute lymphocyte countOrd ered By: Constantin Jain on 09-15-2024 Lymphocytes Auto (Unsp spec) [#/Vol] 0.64 10*3/uL Low 0.83-4.51 [facility] Absolute neutrophil countOrd ered By: Constantin Jain on 09-15-2024 Absolute neutrophil count 7.8 X10^3/uL High 2.0-7.7 [facility] Anion gap [Moles/Vol]Ordered By: Constantin Jain on 09-15-2024 Anion gap in Serum or Plasma 10 5- [facility] Anion gap in Serum or Plasma Ordered By: Constantin Jain on 09-15-2024 Anion gap [Moles/Vol] 10 mmol/L 5- [facility] Automated lymphocyte count a s percentage of total leukocytesOrdered By: Constantin Jain on 09-15-2024 Lymphocytes/100 WBC Auto (Unsp spec) 6.9 % Low 19-41 [facility] BUN/creatinine ratioOrdered By: Constantin Jain on 09-15-2024 Urea nitrogen/Creatinine [Mass ratio] 34.6 mg/mg High 10 [facility] BUN/creatinine ratio 34.6 RATIO High - [facility] Basic Metabolic Profile (BMP )on 09-15-2024 BUN/CRE 34.6 RATIO High 03-17 [facility] Comment on above: Performed By: #### L 500.2500, L501.4021, L100.0100 ####[facility] [address] [place], [address] Calcium [Mass/Vol] 9.1 mg/dL Normal 7.6-11.0 [facility] Comment on above: Performed By: #### L 500.2500, L501.4021, L100.0100 ####[facility] [address] [place], [address] Chloride [Moles/Vol] 96 mmol/L Low 98-108 [facility] Comment on above: Performed By: #### L 500.2500, L501.4021, L100.0100 ####[facility] [address] [place], [address] CO2 [Moles/Vol] 27.3 mmol/L Normal 21.0-32.0 [facility] Comment on above: Performed By: #### L 500.2500, L501.4021, L100.0100 ####[facility] [address] [place], [address] Creatinine [Mass/Vol] 1.14 mg/dL Normal 0.70-1.[address] [facility] Comment on above: Performed By: #### L 500.2500, L501.4021, L100.0100 ####[facility] [address] [place], [address] ECRCL 44.59 ml/min Low 50-250 [facility] Comment on above: Performed By: #### L 500.2500, L501.4021, L100.0100 ####[facility] [address] [place], [address] GAP 10 Normal 5-15 [facility] Comment on above: Performed By: #### L 500.2500, L501.4021, L100.0100 ####[facility] [address] [place], [address] GFR/1.73 sq M.predicted among non-blacks MDRD (S/P/Bld) [Vol rate/Area] 54 mL/min/{1.73_m2} Low >60 [facility] Comment on above: Result Comment: mL/m in/1.73m2 CKD-EPI Creatinine Equation (2020) Performed By: #### L 500.2500, L501.4021, L100.0100 ####[facility] [address] [place], [address] Glucose [Mass/Vol] 103 mg/dL High 70-99 [facility] Comment on above: Performed By: #### L 500.2500, L501.4021, L100.0100 ####[facility] [address] [place], [address] Potassium [Moles/Vol] 4.3 mmol/L Normal 3.3-5.[address] [facility] Comment on above: Result Comment: Hemo lysis present, Results??could be affected.?? Performed By: #### L 500.2500, L501.4021, L100.0100 ####[facility] [address] [place], [address] Sodium [Moles/Vol] 133 mmol/L Normal 133-145 [facility] Comment on above: Performed By: #### L 500.2500, L501.4021, L100.0100 ####[facility] [address] [place], [address] Urea nitrogen [Mass/Vol] 40 mg/dL High 4-19 [facility] Comment on above: Performed By: #### L 500.2500, L501.4021, L100.0100 ####[facility] [address] [place], [address] Basophil percentageOrdered B y: Constantin Jain on 09-15-2024 Basophils/100 WBC (Bld) 0.3 % 0-1 [facility] Basophil percentage 0.3 % 0-1 [facility] CBC W/Diff, Automatedon 04-2 0-2025 Absolute Lymph 0.64 X10 3/uL Low 0.83-4.51 [facility] Comment on above: Performed By: #### L 500.2500, L501.4021, L100.0100 ####[facility] [address] [place], [address] Absolute Neut 7.8 X10 3/uL High 2.0-7.7 [facility] Comment on above: Performed By: #### L 500.2500, L501.4021, L100.0100 ####[facility] [address] [place], [address] Basophils/100 WBC (Bld) 0.3 % Normal 0-1 [facility] Comment on above: Performed By: #### L 500.2500, L501.4021, L100.0100 ####[facility] [address] [place], [address] Eosinophils/100 WBC (Bld) 1.5 % Normal 0-5 [facility] Comment on above: Performed By: #### L 500.2500, L501.4021, L100.0100 ####[facility] [address] [place], [address] Erythrocyte distribution width (RBC) [Ratio] 19.0 % High 11.6-14.6 [facility] Comment on above: Performed By: #### L 500.2500, L501.4021, L100.0100 ####[facility] [address] [place], [address] Hematocrit (Bld) [Volume fraction] 27.5 % Low 37-47 [facility] Comment on above: Performed By: #### L 500.2500, L501.4021, L100.0100 ####[facility] [address] [place], [address] Hemoglobin (Bld) [Mass/Vol] 8.3 g/dL Low 12.0-15.0 [facility] Comment on above: Performed By: #### L 500.2500, L501.4021, L100.0100 ####[facility] [address] [place], [address] IG% 1.100 High 0.0-0.9 [facility] Comment on above: Result Comment: IG% - Immature Granulocytes (promyelocytes, myelocytes andmetamyelocytes) > 1% indicates that a LEFT SHIFT is Present. Performed By: #### L 500.2500, L501.4021, L100.0100 ####[facility] [address] [place], [address] Lymphocytes/100 WBC (Bld) 6.9 % Low 19-41 [facility] Comment on above: Performed By: #### L 500.2500, L501.4021, L100.0100 ####[facility] [address] [place], [address] MCH (RBC) [Entitic mass] 27.5 pg Normal 27.0-32.0 [facility] Comment on above: Performed By: #### L 500.2500, L501.4021, L100.0100 ####[facility] [address] [place], [address] MCHC (RBC) [Mass/Vol] 30.2 g/dL Low 32-[address] [facility] Comment on above: Performed By: #### L 500.2500, L501.4021, L100.0100 ####[facility] [address] [place], [address] MCV (RBC) [Entitic vol] 91.1 fL Normal 81-99 [facility] Comment on above: Performed By: #### L 500.2500, L501.4021, L100.0100 ####[facility] [address] [place], [address] Monocytes/100 WBC (Bld) 6.1 % Normal 0-10 [facility] Comment on above: Performed By: #### L 500.2500, L501.4021, L100.0100 ####[facility] [address] [place], [address] Neutrophils/100 WBC (Bld) 84.1 % High 47-70 [facility] Comment on above: Performed By: #### L 500.2500, L501.4021, L100.0100 ####[facility] [address] [place], [address] Nucleated RBC (Bld) [#/Vol] 0 10*3/uL Normal 0-5 [facility] Comment on above: Performed By: #### L 500.2500, L501.4021, L100.0100 ####[facility] [address] [place], [address] Platelet mean volume (Bld) [Entitic vol] 10.0 fL Normal 6.2-12.0 [facility] Comment on above: Performed By: #### L 500.2500, L501.4021, L100.0100 ####[facility] [address] [place], [address] Platelets (Bld) [#/Vol] 198 10*3/uL Normal 150-450 [facility] Comment on above: Performed By: #### L 500.2500, L501.4021, L100.0100 ####[facility] [address] [place], [address] RBC (Bld) [#/Vol] 3.02 10*6/uL Low 4.2-5.4 [facility] Comment on above: Performed By: #### L 500.2500, L501.4021, L100.0100 ####[facility] [address] [place], [address] RDW SD 62.7 fl High 35.1-43.9 [facility] Comment on above: Performed By: #### L 500.2500, L501.4021, L100.0100 ####[facility] [address] [place], [address] WBC (Bld) [#/Vol] 9.3 10*3/uL Normal 4.4-11.0 [facility] Comment on above: Performed By: #### L 500.2500, L501.4021, L100.0100 ####[facility] [address] [place], [address] Calcium [Mass/Vol]Ordered By : Constantin Jain on 09-15-2024 Serum or plasma calcium measurement (mass/volume) 9.1 mg/dL 7.6-11.0 [facility] Carbon dioxide, total [Moles /volume] in Central venous bloodOrdered By: Constantin Jain on 09-15-2024 CO2 [Moles/Vol] 27.3 mmol/L 21.0-32.0 [facility] Carbon dioxide, total [Moles/volume] in Central venous blood 27.3 mmol/L 21.0-32.0 [facility] Chest 1 View (Portable)on Chest 1 View (Portable) Normal [facility] Chloride assayOrdered By: Tacos Jain on 09-15-2024 Chloride [Moles/Vol] 96 mmol/L Low 98-108 [facility] Chloride assay 96 mmol/L Low 98-108 [facility] Creatinine [Mass/Vol]Ordered By: Constantin Jain on 09-15-2024 Serum creatinine measurement (mass/volume) 1.14 mg/dL 0.70-1.20 [facility] Emergency Department Summary on 09-15-2024 Emergency Department Summary Normal [facility] Eosinophil percentageOrdered By: Constantin Jain on 09-15-2024 Eosinophils/100 WBC (Bld) 1.5 % 0-5 [facility] Eosinophil percentage 1.5 % 0-[address] [facility] Erythrocyte distribution wid th (RBC) [Ratio]Ordered By: Constantin Jain on 09-15-2024 Erythrocyte distribution width ratio 19.0 % High 11.6-14.6 [facility] Erythrocyte distribution width standard deviation 62.7 fl High 35.1-43.9 [facility] Erythrocyte distribution wid th ratioOrdered By: Constantin Jain on 09-15-2024 Erythrocyte distribution width (RBC) [Ratio] 19.0 % High 11.6-14.6 [facility] Erythrocyte distribution wid th standard deviationOrdered By: Constantin Jain on 09-15-2024 Erythrocyte distribution width (RBC) [Ratio] 62.7 fl High 35.1-43.9 [facility] Estimation of creatinine austen aranceOrdered By: Constantin Jain on 09-15-2024 Estimation of creatinine clearance 44.59 ml/min Low 50-250 [facility] GFR/1.73 sq M.predicted víctor g non-blacks MDRD (S/P/Bld) [Vol rate/Area]Ordered By: Constantin Jain on 09-15-2024 Glomerular filtration rate (GFR) estimation/1.73 sq m using serum, plasma, or whole b 54 Low >60 [facility] Glomerular filtration rate ( GFR) estimation/1.73 sq m using serum, plasma, or whole bOrdered By: Constantin Jain on 09-15-2024 GFR/1.73 sq M.predicted among non-blacks MDRD (S/P/Bld) [Vol rate/Area] 54 mL/min/{1.73_m2} Low >60 [facility] Glucose [Mass/Vol]Ordered By : Constantin Jain on 09-15-2024 Serum glucose measurement (mass/volume) 103 mg/dL High 70-99 [facility] Hematocrit Auto (Bld) [Volum e fraction]Ordered By: Constantin Jain on 09-15-2024 Hematocrit (Bld) [Volume fraction] 27.5 % Low 37-47 [facility] Automated blood hematocrit (percentage) 27.5 % Low 37-47 [facility] Hemoglobin measurementOrdere d By: Constantin Jain on 09-15-2024 Hemoglobin (Bld) [Mass/Vol] 8.3 g/dL Low 12.0-15.0 [facility] Hemoglobin measurement 8.3 g/dL Low 12.0-15.0 [facility] Immature granulocytes/100 WB C Auto (Bld)Ordered By: Constantin Jain on 09-15-2024 Immature granulocytes/100 WBC (Bld) 1.100 % High 0.0-0.9 [facility] Automated immature granulocyte percentage 1.100 % High 0.0-0.9 [facility] L499.0042on 09-15-2024 Trop T High Sen 273 ng/L Invalid Interpretation Code <=14 [facility] Comment on above: Result Comment: Crit ical Result(s) Called to Tu MEJIA (ER): John Paul.Stephonr:??Results read back by same. Performed By: #### L 499.0042 ####[facility] [address] [place], [address] L499.0043on 09-15-2024 Trop T High Sen Normal <=14 [facility] Comment on above: Result Comment: Canc elled via OM: Order cancelled - Patient discharged Performed By: #### L 499.0043 ####[facility] [address] [place], [address] L501.4021on 09-15-2024 Trop T High Sen 256 ng/L Invalid Interpretation Code <=14 [facility] Comment on above: Result Comment: Crit ical Result(s) Called at: 0515 by:??WALTER HAVEN TO LEXISCHAFER Results read back by same. Performed By: #### L 500.2500, L501.4021, L100.0100 ####[facility] [address] [place], [address] Lymphocytes Auto (Unsp spec) [#/Vol]Ordered By: Constantin Jain on 09-15-2024 Absolute lymphocyte count 0.64 X10^3/uL Low 0.83-4.51 [facility] Lymphocytes/100 WBC Auto (Un sp spec)Ordered By: Constantin Jain on 09-15-2024 Automated lymphocyte count as percentage of total leukocytes 6.9 % Low 19-41 [facility] MCV (RBC) [Entitic vol]Order ed By: Constantin Jain on 09-15-2024 MCV (mean corpuscular volume) determination 91.1 fL 81-99 [facility] MCV (mean corpuscular volume ) determinationOrdered By: Constantin Jain on 09-15-2024 MCV (RBC) [Entitic vol] 91.1 fL 81-99 [facility] Mean corpuscular hemoglobin (MCH) determinationOrdered By: Constantin Jain on 09-15-2024 MCH (RBC) [Entitic mass] 27.5 pg 27.0-32.0 [facility] Mean corpuscular hemoglobin (MCH) determination 27.5 pg 27.0-32.0 [facility] Mean corpuscular hemoglobin concentration (MCHC) determinationOrdered By: Constantin Jain on 09-15-2024 Mean corpuscular hemoglobin concentration (MCHC) determination 30.2 g/dL Low 32-36 [facility] Mean platelet volume determi nationOrdered By: Constantin Jain on 09-15-2024 Mean platelet volume determination 10.0 fl 6.2-12.0 [facility] Monocyte percentageOrdered B y: Constantin Jain on 09-15-2024 Monocytes/100 WBC (Bld) 6.1 % 0-10 [facility] Monocyte percentage 6.1 % 0-10 [facility] Neutrophil percentageOrdered By: Constantin Jain on 09-15-2024 Neutrophils/100 WBC (Bld) 84.1 % High 47-70 [facility] Neutrophil percentage 84.1 % High 47-[address] [facility] Nucleated red blood cell per centageOrdered By: Constantin Jain on 09-15-2024 Nucleated red blood cell percentage 0 % 0-5 [facility] Platelet countOrdered By: Tacos Jain on 09-15-2024 Platelets (Bld) [#/Vol] 198 10*3/uL 150-450 [facility] Platelet count 198 K/mm3 150-450 [facility] Potassium (Unsp spec) [Mass/ Vol]Ordered By: Constantin Jain on 09-15-2024 Potassium measurement (mass/volume) 4.3 mmol/L 3.3-5.1 [facility] Potassium measurement (mass/ volume)Ordered By: Constantin Jain on 09-15-2024 Potassium (Unsp spec) [Mass/Vol] 4.3 mmol/L 3.3-5.1 [facility] RBC Auto (Bld) [#/Vol]Ordere d By: Constantin Jain on 09-15-2024 RBC (Bld) [#/Vol] 3.02 10*6/uL Low 4.2-5.4 [facility] Automated blood erythrocyte count 3.02 M/mm3 Low 4.2-5.4 [facility] Serum creatinine measurement (mass/volume)Ordered By: Constantin Jain on 09-15-2024 Creatinine [Mass/Vol] 1.14 mg/dL 0.70-1.[address] [facility] Serum glucose measurement (m ass/volume)Ordered By: Constantin Jain on 09-15-2024 Glucose [Mass/Vol] 103 mg/dL High 70-99 [facility] Serum or plasma calcium megan urement (mass/volume)Ordered By: Constantin Jani on 09-15-2024 Calcium [Mass/Vol] 9.1 mg/dL 7.6-11.0 [facility] Serum or plasma urea nitroge n measurement (mass/volume)Ordered By: Constantin Jain on 09-15-2024 Urea nitrogen [Mass/Vol] 40 mg/dL High 4-19 [facility] Sodium levelOrdered By: Nile Jain on 09-15-2024 Sodium [Moles/Vol] 133 mmol/L 133-145 [facility] Sodium level 133 mmol/L 133-145 [facility] Troponin T.cardiac High sens itivity method [Mass/Vol]Ordered By: Constantin Jain on 09-15-2024 Troponin T.cardiac [Mass/volume] in Serum or Plasma by High sensitivity method 273 ng/L High <14 [facility] Troponin T.cardiac [Mass/volume] in Serum or Plasma by High sensitivity method 256 ng/L High <14 [facility] Troponin T.cardiac [Mass/vol ume] in Serum or Plasma by High sensitivity methodOrdered By: Constantin Jain on 09-15-2024 Troponin T.cardiac High sensitivity method [Mass/Vol] 273 ng/L High <14 [facility] Troponin T.cardiac High sensitivity method [Mass/Vol] 256 ng/L High <14 [facility] Urea nitrogen [Mass/Vol]Orde red By: Constantin Jain on 09-15-2024 Serum or plasma urea nitrogen measurement (mass/volume) 40 mg/dL High 4-19 [facility] White blood cell (WBC) count Ordered By: Constantin Jain on 09-15-2024 WBC (Bld) [#/Vol] 9.3 10*3/uL 4.4-11.0 [facility] White blood cell (WBC) count 9.3 K/mm3 4.4-11.0 [facility] ALP [Catalytic activity/Vol] Ordered By: Millie Massey on 09-09-2024 Serum or plasma alkaline phosphatase measurement 93 U/L 35-104 [facility] ALT [Catalytic activity/Vol] Ordered By: Millie Massey on 09-09-2024 Serum or plasma alanine aminotransferase (ALT) measurement 26 U/L <35 [facility] Albumin [Mass/Vol]Ordered By : Millie Massey on 09-09-2024 Serum or plasma albumin measurement (mass/volume) 2.4 g/dL Low 3.4-4.8 [facility] Albumin/Globulin [Mass ratio ]Ordered By: Millie Massey on 09-09-2024 Serum or plasma albumin/globulin mass ratio 0.6 RATIO Low 0.9-2.4 [facility] Anion gap [Moles/Vol]Ordered By: Millie Massey on 09-09-2024 Anion gap in Serum or Plasma 8 5-15 [facility] Anion gap in Serum or Plasma Ordered By: Millie Massey on 09-09-2024 Anion gap [Moles/Vol] 8 mmol/L 5-[address] [facility] BUN/creatinine ratioOrdered By: Millie Massey on 09-09-2024 Urea nitrogen/Creatinine [Mass ratio] 36.3 mg/mg High 10-20 [facility] BUN/creatinine ratio 36.3 RATIO High 10-20 [facility] Bilirubin, totalOrdered By: Millie Massey on 09-09-2024 Bilirubin [Mass/Vol] 0.24 mg/dL 0.00-1.30 [facility] Bilirubin, total 0.24 mg/dL 0.00-1.30 [facility] CBC-Complete Blood Cnt No Geri de la cruz 09-09-2024 Erythrocyte distribution width (RBC) [Ratio] 18.6 % High 11.6-14.6 [facility] Comment on above: Performed By: #### L 100.0500, L501.5200, L500.4050 ####[facility] [address] [place], [address] Hematocrit (Bld) [Volume fraction] 31.4 % Low 37-47 [facility] Comment on above: Performed By: #### L 100.0500, L501.5200, L500.4050 ####[facility] [address] [place], [address] Hemoglobin (Bld) [Mass/Vol] 9.4 g/dL Low 12.0-15.0 [facility] Comment on above: Performed By: #### L 100.0500, L501.5200, L500.4050 ####[facility] [address] [place], [address] MCH (RBC) [Entitic mass] 27.0 pg Normal 27.0-32.0 [facility] Comment on above: Performed By: #### L 100.0500, L501.5200, L500.4050 ####[facility] [address] [place], [address] MCHC (RBC) [Mass/Vol] 29.9 g/dL Low 32-[address] [facility] Comment on above: Performed By: #### L 100.0500, L501.5200, L500.4050 ####[facility] [address] [place], [address] MCV (RBC) [Entitic vol] 90.2 fL Normal 81-99 [facility] Comment on above: Performed By: #### L 100.0500, L501.5200, L500.4050 ####[facility] [address] [place], [address] Platelet mean volume (Bld) [Entitic vol] 10.1 fL Normal 6.2-12.0 [facility] Comment on above: Performed By: #### L 100.0500, L501.5200, L500.4050 ####[facility] [address] [place], [address] Platelets (Bld) [#/Vol] 183 10*3/uL Normal 150-450 [facility] Comment on above: Performed By: #### L 100.0500, L501.5200, L500.4050 ####[facility] [address] [place], [address] RBC (Bld) [#/Vol] 3.48 10*6/uL Low 4.2-5.4 [facility] Comment on above: Performed By: #### L 100.0500, L501.5200, L500.4050 ####[facility] [address] [place], [address] RDW SD 61.3 fl High 35.1-43.9 [facility] Comment on above: Performed By: #### L 100.0500, L501.5200, [id number] ####[facility] [address] [place], [address] WBC (Bld) [#/Vol] 3.8 10*3/uL Low 4.4-11.0 [facility] Comment on above: Performed By: #### L 100.0500, L501.5200, L500.4050 ####[facility] [address] [place], [address] Calcium [Mass/Vol]Ordered By : Millie Massey on 09-09-2024 Serum or plasma calcium measurement (mass/volume) 8.8 mg/dL 7.6-11.0 [facility] Carbon dioxide, total [Moles /volume] in Central venous bloodOrdered By: Millie Massey on 09-09-2024 CO2 [Moles/Vol] 30.2 mmol/L 21.0-32.0 [facility] Carbon dioxide, total [Moles/volume] in Central venous blood 30.2 mmol/L 21.0-32.0 [facility] Chloride assayOrdered By: Carter Massey on 09-09-2024 Chloride [Moles/Vol] 96 mmol/L Low 98-108 [facility] Chloride assay 96 mmol/L Low 98-108 [facility] Comprehensive Metabolic Prof ilon 09-09-2024 Albumin [Mass/Vol] 2.4 g/dL Low 3.4-4.8 [facility] Comment on above: Performed By: #### L 100.0500, L501.5200, L500.4050 ####[facility] [address] [place], [address] Albumin/Globulin [Mass ratio] 0.6 {ratio} Low 0.9-2.4 [facility] Comment on above: Performed By: #### L 100.0500, L501.5200, L500.4050 ####[facility] [address] [place], [address] ALK PHOS 93 U/L Normal 35-104 [facility] Comment on above: Performed By: #### L 100.0500, L501.5200, L500.4050 ####[facility] [address] [place], [address] ALT [Catalytic activity/Vol] 26 U/L Normal <=34 [facility] Comment on above: Performed By: #### L 100.0500, L501.5200, L500.4050 ####[facility] [address] [place], [address] AST [Catalytic activity/Vol] 54 U/L High <=31 [facility] Comment on above: Performed By: #### L 100.0500, L501.5200, L500.4050 ####[facility] [address] [place], [address] Bilirubin [Mass/Vol] 0.24 mg/dL Normal 0.00-1.30 [facility] Comment on above: Performed By: #### L 100.0500, L501.5200, L500.4050 ####[facility] [address] [place], [address] BUN/CRE 36.3 RATIO High 10-20 [facility] Comment on above: Performed By: #### L 100.0500, L501.5200, L500.4050 ####[facility] [address] [place], [address] Calcium [Mass/Vol] 8.8 mg/dL Normal 7.6-11.0 [facility] Comment on above: Performed By: #### L 100.0500, L501.5200, L500.4050 ####[facility] [address] [place], [address] Chloride [Moles/Vol] 96 mmol/L Low 98-108 [facility] Comment on above: Performed By: #### L 100.0500, L501.5200, [id number] ####[facility] [address] [place], [address] CO2 [Moles/Vol] 30.2 mmol/L Normal 21.0-32.0 [facility] Comment on above: Performed By: #### L 100.0500, L501.5200, L500.4050 ####[facility] [address] [place], [address] Creatinine [Mass/Vol] 1.35 mg/dL High 0.70-1.[address] [facility] Comment on above: Performed By: #### L 100.0500, L501.5200, L500.4050 ####[facility] [address] [place], [address] GAP 8 Normal 5-15 [facility] Comment on above: Performed By: #### L 100.0500, L501.5200, L500.4050 ####[facility] [address] [place], [address] GFR/1.73 sq M.predicted among non-blacks MDRD (S/P/Bld) [Vol rate/Area] 44 mL/min/{1.73_m2} Low >60 [facility] Comment on above: Result Comment: mL/m in/1.73m2 CKD-EPI Creatinine Equation (2020) Performed By: #### L 100.0500, L501.5200, L500.4050 ####[facility] [address] [place], [address] Globulin (S) [Mass/Vol] 3.7 g/dL Normal 2.2-4.2 [facility] Comment on above: Performed By: #### L 100.0500, L501.5200, L500.4050 ####[facility] [address] [place], [address] Glucose [Mass/Vol] 115 mg/dL High 70-99 [facility] Comment on above: Performed By: #### L 100.0500, L501.5200, L500.4050 ####[facility] [address] [place], [address] Potassium [Moles/Vol] 3.1 mmol/L Low 3.3-5.[address] [facility] Comment on above: Performed By: #### L 100.0500, L501.5200, L500.4050 ####[facility] [address] [place], [address] Sodium [Moles/Vol] 133 mmol/L Normal 133-145 [facility] Comment on above: Performed By: #### L 100.0500, L501.5200, L500.4050 ####[facility] [address] [place], [address] T PROT 6.1 g/dL Normal 5.9-8.4 [facility] Comment on above: Performed By: #### L 100.0500, L501.5200, L500.4050 ####[facility] [address] [place], [address] Urea nitrogen [Mass/Vol] 49 mg/dL High 4-19 [facility] Comment on above: Performed By: #### L 100.0500, L501.5200, L500.4050 ####[facility] [address] [place], [address] Creatinine [Mass/Vol]Ordered By: Millie Massey on 09-09-2024 Serum creatinine measurement (mass/volume) 1.35 mg/dL High 0.70-1.20 [facility] Erythrocyte distribution wid th (RBC) [Ratio]Ordered By: Millie Massey on 09-09-2024 Erythrocyte distribution width ratio 18.6 % High 11.6-14.6 [facility] Erythrocyte distribution width standard deviation 61.3 fl High 35.1-43.9 [facility] Erythrocyte distribution wid th ratioOrdered By: Millie Massey on 09-09-2024 Erythrocyte distribution width (RBC) [Ratio] 18.6 % High 11.6-14.6 [facility] Erythrocyte distribution wid th standard deviationOrdered By: Millie Massey on 09-09-2024 Erythrocyte distribution width (RBC) [Ratio] 61.3 fl High 35.1-43.9 [facility] GFR/1.73 sq M.predicted víctor g non-blacks MDRD (S/P/Bld) [Vol rate/Area]Ordered By: Millie Massey on 09-09-2024 Glomerular filtration rate (GFR) estimation/1.73 sq m using serum, plasma, or whole b 44 Low >60 [facility] Glomerular filtration rate ( GFR) estimation/1.73 sq m using serum, plasma, or whole bOrdered By: Millie Massey on 09-09-2024 GFR/1.73 sq M.predicted among non-blacks MDRD (S/P/Bld) [Vol rate/Area] 44 mL/min/{1.73_m2} Low >60 [facility] Glucose [Mass/Vol]Ordered By : Millie Massey on 09-09-2024 Serum glucose measurement (mass/volume) 115 mg/dL High 70-99 [facility] Hematocrit Auto (Bld) [Volum e fraction]Ordered By: Millie Massey on 09-09-2024 Hematocrit (Bld) [Volume fraction] 31.4 % Low 37-47 [facility] Automated blood hematocrit (percentage) 31.4 % Low 37-47 [facility] Hemoglobin measurementOrdere d By: Millie Massey on 09-09-2024 Hemoglobin (Bld) [Mass/Vol] 9.4 g/dL Low 12.0-15.0 [facility] Hemoglobin measurement 9.4 g/dL Low 12.0-15.0 [facility] MCV (RBC) [Entitic vol]Order ed By: Millie Massey on 09-09-2024 MCV (mean corpuscular volume) determination 90.2 fL 81-99 [facility] MCV (mean corpuscular volume ) determinationOrdered By: Millie Massey on 09-09-2024 MCV (RBC) [Entitic vol] 90.2 fL 81-99 [facility] Magnesiumon 09-09-2024 Magnesium [Mass/Vol] 2.0 mg/dL Normal 1.5-2.2 [facility] Comment on above: Performed By: #### L 100.0500, L501.5200, L500.4050 ####[facility] [address] [place], [place], [address] Magnesium (Unsp spec) [Mass/ Vol]Ordered By: Millie Massey on 09-09-2024 Magnesium measurement (mass/volume) 2.0 mg/dL 1.5-2.2 [facility] Magnesium measurement (mass/ volume)Ordered By: Millie Massey on 09-09-2024 Magnesium (Unsp spec) [Mass/Vol] 2.0 mg/dL 1.5-2.2 [facility] Mean corpuscular hemoglobin (MCH) determinationOrdered By: Millie Massey on 09-09-2024 MCH (RBC) [Entitic mass] 27.0 pg 27.0-32.0 [facility] Mean corpuscular hemoglobin (MCH) determination 27.0 pg 27.0-32.0 [facility] Mean corpuscular hemoglobin concentration (MCHC) determinationOrdered By: Millie Massey on 09-09-2024 Mean corpuscular hemoglobin concentration (MCHC) determination 29.9 g/dL Low 32-36 [facility] Mean platelet volume determi nationOrdered By: Millie Massey on 09-09-2024 Mean platelet volume determination 10.1 fl 6.2-12.0 [facility] No Panel InformationOrdered By: Millie Massey on 09-09-2024 54 U/L High <32 [facility] Platelet countOrdered By: Carter Massey on 09-09-2024 Platelets (Bld) [#/Vol] 183 10*3/uL 150-450 [facility] Platelet count 183 K/mm3 150-450 [facility] Potassium (Unsp spec) [Mass/ Vol]Ordered By: Millie Massey on 09-09-2024 Potassium measurement (mass/volume) 3.1 mmol/L Low 3.3-5.1 [facility] Potassium measurement (mass/ volume)Ordered By: Millie Massey on 09-09-2024 Potassium (Unsp spec) [Mass/Vol] 3.1 mmol/L Low 3.3-5.1 [facility] RBC Auto (Bld) [#/Vol]Ordere d By: Millie Massey on 09-09-2024 RBC (Bld) [#/Vol] 3.48 10*6/uL Low 4.2-5.4 [facility] Automated blood erythrocyte count 3.48 M/mm3 Low 4.2-5.4 [facility] Serum creatinine measurement (mass/volume)Ordered By: Millie Massey on 09-09-2024 Creatinine [Mass/Vol] 1.35 mg/dL High 0.70-1.[address] [facility] Serum globulin measurementOr dered By: Millie Massey on 09-09-2024 Globulin (S) [Mass/Vol] 3.7 g/dL 2.2-4.2 [facility] Serum globulin measurement 3.7 g/dL 2.2-4.2 [facility] Serum glucose measurement (m ass/volume)Ordered By: Millie Massey on 09-09-2024 Glucose [Mass/Vol] 115 mg/dL High 70-99 [facility] Serum or plasma alanine camargo otransferase (ALT) measurementOrdered By: Millie Massey on 09-09-2024 ALT [Catalytic activity/Vol] 26 U/L <35 [facility] Serum or plasma albumin megan urement (mass/volume)Ordered By: Millie Massey on 09-09-2024 Albumin [Mass/Vol] 2.4 g/dL Low 3.4-4.8 [facility] Serum or plasma albumin/glob ulin mass ratioOrdered By: Millie Massey on 09-09-2024 Albumin/Globulin [Mass ratio] 0.6 {ratio} Low 0.9-2.4 [facility] Serum or plasma alkaline susan sphatase measurementOrdered By: Millie Massey on 09-09-2024 ALP [Catalytic activity/Vol] 93 U/L 35-104 [facility] Serum or plasma calcium megan urement (mass/volume)Ordered By: Millie Massey on 09-09-2024 Calcium [Mass/Vol] 8.8 mg/dL 7.6-11.0 [facility] Serum or plasma urea nitroge n measurement (mass/volume)Ordered By: Millie Massey on 09-09-2024 Urea nitrogen [Mass/Vol] 49 mg/dL High 4-19 [facility] Sodium levelOrdered By: Silvana Massey on 09-09-2024 Sodium [Moles/Vol] 133 mmol/L 133-145 [facility] Sodium level 133 mmol/L 133-145 [facility] Total proteinOrdered By: Lesli Massey on 09-09-2024 Protein [Mass/Vol] 6.1 g/dL 5.9-8.4 [facility] Total protein 6.1 g/dL 5.9-8.4 [facility] Urea nitrogen [Mass/Vol]Orde red By: Millie Massey on 09-09-2024 Serum or plasma urea nitrogen measurement (mass/volume) 49 mg/dL High 4-19 [facility] White blood cell (WBC) count Ordered By: Millie Massey on 09-09-2024 WBC (Bld) [#/Vol] 3.8 10*3/uL Low 4.4-11.0 [facility] White blood cell (WBC) count 3.8 K/mm3 Low 4.4-11.0 [facility] ALP [Catalytic activity/Vol] Ordered By: Millie Massey on 09-02-2024 Serum or plasma alkaline phosphatase measurement 81 U/L 35-104 [facility] ALT [Catalytic activity/Vol] Ordered By: Millie Massey on 09-02-2024 Serum or plasma alanine aminotransferase (ALT) measurement 16 U/L <35 [facility] Albumin [Mass/Vol]Ordered By : Millie Massey on 09-02-2024 Serum or plasma albumin measurement (mass/volume) 2.3 g/dL Low 3.4-4.8 [facility] Albumin/Globulin [Mass ratio ]Ordered By: Millie Massey on 09-02-2024 Serum or plasma albumin/globulin mass ratio 0.6 RATIO Low 0.9-2.4 [facility] Anion gap [Moles/Vol]Ordered By: Millie Massey on 09-02-2024 Anion gap in Serum or Plasma 10 5-15 [facility] Anion gap in Serum or Plasma Ordered By: Millie Massey on 09-02-2024 Anion gap [Moles/Vol] 10 mmol/L 5-[address] [facility] BUN/creatinine ratioOrdered By: Millie Massey on 09-02-2024 Urea nitrogen/Creatinine [Mass ratio] 22.5 mg/mg High 10-20 [facility] BUN/creatinine ratio 22.5 RATIO High 10-20 [facility] Bilirubin, totalOrdered By: Millie Massey on 09-02-2024 Bilirubin [Mass/Vol] 0.27 mg/dL Normal 0.00-1.30 [facility] Comment on above: Order Comment: Performed By: #### L 501.5200, L500.4050, L100.0500, L100.4500 ####[facility] [address] [place], [address] Bilirubin, total 0.27 mg/dL 0.00-1.30 [facility] Blood manual differential co mment interpretation (narrative result)Ordered By: Millie Massey on 09-02-2024 Manual differential comment Horace (Bld) [Interp] See comment [facility] CBC-Complete Blood Cnt No Di ffon 09-02-2024 Erythrocyte distribution width (RBC) [Ratio] 22.0 % High 11.6-14.6 [facility] Comment on above: Order Comment: Performed By: #### L 501.5200, L500.4050, L100.0500, L100.4500 ####[facility] [address] [place], [address] Hematocrit (Bld) [Volume fraction] 34.9 % Low 37-47 [facility] Comment on above: Order Comment: Performed By: #### L 501.5200, L500.4050, L100.0500, L100.4500 ####[facility] [address] [place], [address] Hemoglobin (Bld) [Mass/Vol] 10.7 g/dL Low 12.0-15.0 [facility] Comment on above: Order Comment: Performed By: #### L 501.5200, L500.4050, L100.0500, L100.4500 ####[facility] [address] [place], [address] MCH (RBC) [Entitic mass] 28.0 pg Normal 27.0-32.0 [facility] Comment on above: Order Comment: Performed By: #### L 501.5200, L500.4050, L100.0500, L100.4500 ####[facility] [address] [place], [address] MCHC (RBC) [Mass/Vol] 30.7 g/dL Low 32-[address] [facility] Comment on above: Order Comment: Performed By: #### L 501.5200, L500.4050, L100.0500, L100.4500 ####[facility] [address] [place], [address] MCV (RBC) [Entitic vol] 91.4 fL Normal 81-99 [facility] Comment on above: Order Comment: Performed By: #### L 501.5200, L500.4050, L100.0500, L100.4500 ####[facility] [address] [place], [address] Platelet mean volume (Bld) [Entitic vol] 10.2 fL Normal 6.2-12.0 [facility] Comment on above: Order Comment: Performed By: #### L 501.5200, L500.4050, L100.0500, L100.4500 ####[facility] [address] [place], [address] Platelets (Bld) [#/Vol] 178 10*3/uL Normal 150-450 [facility] Comment on above: Order Comment: Performed By: #### L 501.5200, L500.4050, L100.0500, L100.4500 ####[facility] [address] [place], [address] RBC (Bld) [#/Vol] 3.82 10*6/uL Low 4.2-5.4 [facility] Comment on above: Order Comment: Performed By: #### L 501.5200, L500.4050, L100.0500, L100.4500 ####[facility] [address] [place], [address] RDW SD 72.8 fl High 35.1-43.9 [facility] Comment on above: Order Comment: Performed By: #### L 501.5200, L500.4050, L100.0500, L100.4500 ####[facility] [address] [place], [address] WBC (Bld) [#/Vol] 8.0 10*3/uL Normal 4.4-11.0 [facility] Comment on above: Order Comment: Performed By: #### L 501.5200, L500.4050, L100.0500, L100.4500 ####[facility] [address] [place], [address] Calcium [Mass/Vol]Ordered By : Millie Massey on 09-02-2024 Serum or plasma calcium measurement (mass/volume) 7.8 mg/dL 7.6-11.0 [facility] Carbon dioxide, total [Moles /volume] in Central venous bloodOrdered By: Millie Massey on 09-02-2024 CO2 [Moles/Vol] 25.9 mmol/L Normal 21.0-32.0 [facility] Comment on above: Order Comment: Performed By: #### L 501.5200, L500.4050, L100.0500, L100.4500 ####[facility] [address] [place], [address] Carbon dioxide, total [Moles/volume] in Central venous blood 25.9 mmol/L 21.0-32.0 [facility] Chloride assayOrdered By: Carter Massey on 09-02-2024 Chloride [Moles/Vol] 96 mmol/L Low 98-108 [facility] Comment on above: Order Comment: Performed By: #### L 501.5200, L500.4050, L100.0500, L100.4500 ####[facility] [address] [place], [address] Chloride assay 96 mmol/L Low 98-108 [facility] Comprehensive Metabolic Prof ilon 09-02-2024 ALK PHOS 81 U/L Normal 35-104 [facility] Comment on above: Order Comment: Performed By: #### L 501.5200, L500.4050, L100.0500, L100.4500 ####[facility] [address] [place], [address] AST [Catalytic activity/Vol] 47 U/L High <=31 [facility] Comment on above: Order Comment: Performed By: #### L 501.5200, L500.4050, L100.0500, L100.4500 ####[facility] [address] [place], [address] BUN/CRE 22.5 RATIO High 10-20 [facility] Comment on above: Order Comment: Performed By: #### L 501.5200, L500.4050, L100.0500, L100.4500 ####[facility] [address] [place], [address] GAP 10 Normal 5-15 [facility] Comment on above: Order Comment: - Performed By: #### L 501.5200, L500.4050, L100.0500, L100.4500 ####[facility] [address] [place], [address] Potassium [Moles/Vol] 3.7 mmol/L Normal 3.3-5.[address] [facility] Comment on above: Order Comment: Performed By: #### L 501.5200, L500.4050, L100.0500, L100.4500 ####[facility] [address] [place], [address] T PROT 5.9 g/dL Normal 5.9-8.4 [facility] Comment on above: Order Comment: Performed By: #### L 501.5200, L500.4050, L100.0500, L100.4500 ####[facility] [address] [place], [address] Creatinine [Mass/Vol]Ordered By: Millie Massey on 09-02-2024 Serum creatinine measurement (mass/volume) 0.91 mg/dL 0.70-1.20 [facility] Differential Commenton 09-02 SMEAR COMMENT Normal [facility] Comment on above: Order Comment: Result Comment: ANIS OCYTOSIS 1+ Performed By: #### L 501.5200, L500.4050, L100.0500, L100.4500 ####[facility] [address] [place], [address] Erythrocyte distribution wid th (RBC) [Ratio]Ordered By: Millie Massey on 09-02-2024 Erythrocyte distribution width ratio 22.0 % High 11.6-14.6 [facility] Erythrocyte distribution width standard deviation 72.8 fl High 35.1-43.9 [facility] Erythrocyte distribution wid th ratioOrdered By: Millie Massey on 09-02-2024 Erythrocyte distribution width (RBC) [Ratio] 22.0 % High 11.6-14.6 [facility] Erythrocyte distribution wid th standard deviationOrdered By: Millie Massey on 09-02-2024 Erythrocyte distribution width (RBC) [Ratio] 72.8 fl High 35.1-43.9 [facility] GFR/1.73 sq M.predicted víctor g non-blacks MDRD (S/P/Bld) [Vol rate/Area]Ordered By: Millie Massey on 09-02-2024 Glomerular filtration rate (GFR) estimation/1.73 sq m using serum, plasma, or whole b 71 >60 [facility] Glomerular filtration rate ( GFR) estimation/1.73 sq m using serum, plasma, or whole bOrdered By: Millie Massey on 09-02-2024 GFR/1.73 sq M.predicted among non-blacks MDRD (S/P/Bld) [Vol rate/Area] 71 mL/min/{1.73_m2} Normal >60 [facility] Comment on above: Order Comment: Result Comment: mL/m in/1.73m2 CKD-EPI Creatinine Equation (2020) Performed By: #### L 501.5200, L500.4050, L100.0500, L100.4500 ####[facility] [address] [place], [address] Glucose [Mass/Vol]Ordered By : Millie Massey on 09-02-2024 Serum glucose measurement (mass/volume) 73 mg/dL 70-99 [facility] Hematocrit Auto (Bld) [Volum e fraction]Ordered By: Millie Massey on 09-02-2024 Hematocrit (Bld) [Volume fraction] 34.9 % Low 37-47 [facility] Automated blood hematocrit (percentage) 34.9 % Low 37-47 [facility] Hemoglobin measurementOrdere d By: Millie Massey on 09-02-2024 Hemoglobin (Bld) [Mass/Vol] 10.7 g/dL Low 12.0-15.0 [facility] Hemoglobin measurement 10.7 g/dL Low 12.0-15.0 [facility] MCV (RBC) [Entitic vol]Order ed By: Millie Massey on 09-02-2024 MCV (mean corpuscular volume) determination 91.4 fL 81-99 [facility] MCV (mean corpuscular volume ) determinationOrdered By: Millie Massey on 09-02-2024 MCV (RBC) [Entitic vol] 91.4 fL 81-99 [facility] Magnesiumon 09-02-2024 Magnesium [Mass/Vol] 2.4 mg/dL High 1.5-2.2 [facility] Comment on above: Order Comment: Performed By: #### L 501.5200, L500.4050, L100.0500, L100.4500 ####[facility] [address] [place], [address] Magnesium (Unsp spec) [Mass/ Vol]Ordered By: Millie Massey on 09-02-2024 Magnesium measurement (mass/volume) 2.4 mg/dL High 1.5-2.2 [facility] Magnesium measurement (mass/ volume)Ordered By: Millie Massey on 09-02-2024 Magnesium (Unsp spec) [Mass/Vol] 2.4 mg/dL High 1.5-2.2 [facility] Manual differential comment Horace (Bld) [Interp]Ordered By: Millie Massey on 09-02-2024 Blood manual differential comment interpretation (narrative result) See comment [facility] Mean corpuscular hemoglobin (MCH) determinationOrdered By: Millie Massey on 09-02-2024 MCH (RBC) [Entitic mass] 28.0 pg 27.0-32.0 [facility] Mean corpuscular hemoglobin (MCH) determination 28.0 pg 27.0-32.0 [facility] Mean corpuscular hemoglobin concentration (MCHC) determinationOrdered By: Millie Massey on 09-02-2024 Mean corpuscular hemoglobin concentration (MCHC) determination 30.7 g/dL Low 32-36 [facility] Mean platelet volume determi nationOrdered By: Millie Massey on 09-02-2024 Mean platelet volume determination 10.2 fl 6.2-12.0 [facility] No Panel InformationOrdered By: Millie Massey on 09-02-2024 47 U/L High <32 [facility] Platelet countOrdered By: Carter Massey on 09-02-2024 Platelets (Bld) [#/Vol] 178 10*3/uL 150-450 [facility] Platelet count 178 K/mm3 150-450 [facility] Potassium (Unsp spec) [Mass/ Vol]Ordered By: Millie Massey on 09-02-2024 Potassium measurement (mass/volume) 3.7 mmol/L 3.3-5.1 [facility] Potassium measurement (mass/ volume)Ordered By: Millie Massey on 09-02-2024 Potassium (Unsp spec) [Mass/Vol] 3.7 mmol/L 3.3-5.1 [facility] RBC Auto (Bld) [#/Vol]Ordere d By: Millie Massey on 09-02-2024 RBC (Bld) [#/Vol] 3.82 10*6/uL Low 4.2-5.4 [facility] Automated blood erythrocyte count 3.82 M/mm3 Low 4.2-5.4 [facility] Serum creatinine measurement (mass/volume)Ordered By: Millie Massey on 09-02-2024 Creatinine [Mass/Vol] 0.91 mg/dL Normal 0.70-1.[address] [facility] Comment on above: Order Comment: Performed By: #### L 501.5200, L500.4050, L100.0500, L100.4500 ####[facility] [address] [facility] [place], [place], [id number] Serum globulin measurementOr dered By: Millie Massey on 09-02-2024 Globulin (S) [Mass/Vol] 3.7 g/dL Normal 2.2-4.2 [facility] Comment on above: Order Comment: Performed By: #### L 501.5200, L500.4050, L100.0500, L100.4500 ####[facility] [address] [facility] [address] [place], [place], [id number] Serum globulin measurement 3.7 g/dL 2.2-4.2 [facility] Serum glucose measurement (m ass/volume)Ordered By: Millie Massey on 09-02-2024 Glucose [Mass/Vol] 73 mg/dL Normal 70-99 [facility] Comment on above: Order Comment: Performed By: #### L 501.5200, L500.4050, L100.0500, L100.4500 ####[facility] [address] [place], [address] Serum or plasma alanine camargo otransferase (ALT) measurementOrdered By: Millie Massey on 09-02-2024 ALT [Catalytic activity/Vol] 16 U/L Normal <=34 [facility] Comment on above: Order Comment: Performed By: #### L 501.5200, L500.4050, L100.0500, L100.4500 ####[facility] [address] [place], [place], [id number] Serum or plasma albumin megan urement (mass/volume)Ordered By: Millie Massey on 09-02-2024 Albumin [Mass/Vol] 2.3 g/dL Low 3.4-4.8 [facility] Comment on above: Order Comment: Performed By: #### L 501.5200, L500.4050, L100.0500, L100.4500 ####[facility] [address] [place], [place], [id number] Serum or plasma albumin/glob ulin mass ratioOrdered By: Millie Massey on 09-02-2024 Albumin/Globulin [Mass ratio] 0.6 {ratio} Low 0.9-2.4 [facility] Comment on above: Order Comment: Performed By: #### L 501.5200, L500.4050, L100.0500, L100.4500 ####[facility] [address], [address] Serum or plasma alkaline susan sphatase measurementOrdered By: Millie Massey on 09-02-2024 ALP [Catalytic activity/Vol] 81 U/L 35-104 [facility] Serum or plasma calcium megan urement (mass/volume)Ordered By: Millie Massey on 09-02-2024 Calcium [Mass/Vol] 7.8 mg/dL Normal 7.6-11.0 [facility] Comment on above: Order Comment: Performed By: #### L 501.5200, L500.4050, L100.0500, L100.4500 ####[facility] [address] [place], [place], [address] Serum or plasma urea nitroge n measurement (mass/volume)Ordered By: Millie Massey on 09-02-2024 Urea nitrogen [Mass/Vol] 21 mg/dL High 09-14 [facility] Comment on above: Order Comment: Performed By: #### L 501.5200, L500.4050, L100.0500, L100.4500 ####[facility] [address] [place], [place], [id number] Sodium levelOrdered By: Silvana Massey on 09-02-2024 Sodium [Moles/Vol] 133 mmol/L Normal 133-145 [facility] Comment on above: Order Comment: Performed By: #### L 501.5200, L500.4050, L100.0500, L100.4500 ####[facility] [address] [place], [place], [id number] Sodium level 133 mmol/L 133-145 [facility] Total proteinOrdered By: Lesli Massey on 09-02-2024 Protein [Mass/Vol] 5.9 g/dL 5.9-8.4 [facility] Total protein 5.9 g/dL 5.9-8.4 [facility] Urea nitrogen [Mass/Vol]Orde red By: Millie Massey on 09-02-2024 Serum or plasma urea nitrogen measurement (mass/volume) 21 mg/dL High - [facility] White blood cell (WBC) count Ordered By: Millie Massey on 09-02-2024 WBC (Bld) [#/Vol] 8.0 10*3/uL 4.4-11.0 [facility] White blood cell (WBC) count 8.0 K/mm3 4.4-11.0 [facility] [id number] 08-30-2024 ANTIBODY ID Normal [facility] Comment on above: Order Comment: [id number] Result Comment: CFYA Performed By: #### B [id number], TACOS, BTS ####[facility] [address] [place], [place], [id number] BRCon 08-29-2024 RC Normal [facility] Comment on above: Result Comment: [id number] ON RC PRSMD TRFSD 08/31/24 [id number] ON RC PRSMD TRFSD 08/31/24 [id number] Performed By: #### B [id number], TACOS, BTS ####[facility] [address] [place], [place], [id number] Type AND Screenon 08-29-2024 ABO and Rh group Nom (Bld) Blood group O Rh(D) positive Normal [facility] Comment on above: Order Comment: NYA Performed By: #### B [id number], [facility], BTS ####[facility] [address] [place], [place], [id number] Blood manual differential co mment interpretation (narrative result)Ordered By: Millie Massey on 08-28-2024 Manual differential comment Horace (Bld) [Interp] See comment [facility] CBC-Complete Blood Cnt No Di ffon 08-28-2024 Erythrocyte distribution width (RBC) [Ratio] 21.5 % High 11.6-14.6 [facility] Comment on above: Order Comment: 200 Performed By: #### L 100.0500, L100.4500 ####[facility] [address] [place], [place], [address] Hematocrit (Bld) [Volume fraction] 24.2 % Low 37-47 [facility] Comment on above: Order Comment: 200 Performed By: #### L 100.0500, L100.4500 ####[facility] [address] [place], [address] Hemoglobin (Bld) [Mass/Vol] 7.1 g/dL Low 12.0-15.0 [facility] Comment on above: Order Comment: 200 Performed By: #### L 100.0500, L100.4500 ####[facility] [address] [place], [address] MCH (RBC) [Entitic mass] 27.8 pg Normal 27.0-32.0 [facility] Comment on above: Order Comment: 200 Performed By: #### L 100.0500, L100.4500 ####[facility] [address] [place], [address] MCHC (RBC) [Mass/Vol] 29.3 g/dL Low 32-[address] [facility] Comment on above: Order Comment: 200 Performed By: #### L 100.0500, L100.4500 ####[facility] [address] [place], [address] MCV (RBC) [Entitic vol] 94.9 fL Normal 81-99 [facility] Comment on above: Order Comment: 200 Performed By: #### L 100.0500, L100.4500 ####[facility] [address] [place], [address] Platelet mean volume (Bld) [Entitic vol] 10.8 fL Normal 6.2-12.0 [facility] Comment on above: Order Comment: 200 Performed By: #### L 100.0500, L100.4500 ####[facility] [address] [place], [address] Platelets (Bld) [#/Vol] 261 10*3/uL Normal 150-450 [facility] Comment on above: Order Comment: 200 Performed By: #### L 100.0500, L100.4500 ####[facility] [address] [place], [address] RBC (Bld) [#/Vol] 2.55 10*6/uL Low 4.2-5.4 [facility] Comment on above: Order Comment: 200 Performed By: #### L 100.0500, L100.4500 ####[facility] [address] [place], [address] RDW SD 74.1 fl High 35.1-43.9 [facility] Comment on above: Order Comment: 200 Performed By: #### L 100.0500, L100.4500 ####[facility] [address] [place], [address] WBC (Bld) [#/Vol] 4.3 10*3/uL Low 4.4-11.0 [facility] Comment on above: Order Comment: 200 Performed By: #### L 100.0500, L100.4500 ####[facility] [address] [place], [address] Differential Commenton 08-28 SMEAR COMMENT Normal [facility] Comment on above: Order Comment: 200 Result Comment: ANIS OCYTOSIS = 1+POLYCHROMASIA = 1+PLATELET ESTIMATE = ADEQUATE Performed By: #### L 100.0500, L100.4500 ####[facility] [address] [place], [address] Erythrocyte distribution wid th (RBC) [Ratio]Ordered By: Millie Massey on 08-28-2024 Erythrocyte distribution width ratio 21.5 % High 11.6-14.6 [facility] Erythrocyte distribution width standard deviation 74.1 fl High 35.1-43.9 [facility] Erythrocyte distribution wid th ratioOrdered By: Millie Massey on 08-28-2024 Erythrocyte distribution width (RBC) [Ratio] 21.5 % High 11.6-14.6 [facility] Erythrocyte distribution wid th standard deviationOrdered By: Millie Massey on 08-28-2024 Erythrocyte distribution width (RBC) [Ratio] 74.1 fl High 35.1-43.9 [facility] Hematocrit Auto (Bld) [Volum e fraction]Ordered By: Millie Massey on 08-28-2024 Hematocrit (Bld) [Volume fraction] 24.2 % Low 37-47 [facility] Automated blood hematocrit (percentage) 24.2 % Low 37-47 [facility] Hemoglobin measurementOrdere d By: Millie Massey on 08-28-2024 Hemoglobin (Bld) [Mass/Vol] 7.1 g/dL Low 12.0-15.0 [facility] Hemoglobin measurement 7.1 g/dL Low 12.0-15.0 [facility] MCV (RBC) [Entitic vol]Order ed By: Millie Massey on 08-28-2024 MCV (mean corpuscular volume) determination 94.9 fL 81-99 [facility] MCV (mean corpuscular volume ) determinationOrdered By: Millie Massey on 08-28-2024 MCV (RBC) [Entitic vol] 94.9 fL 81-99 [facility] Manual differential comment Horace (Bld) [Interp]Ordered By: Millie Massey on 08-28-2024 Blood manual differential comment interpretation (narrative result) See comment [facility] Mean corpuscular hemoglobin (MCH) determinationOrdered By: Millie Massey on 08-28-2024 MCH (RBC) [Entitic mass] 27.8 pg 27.0-32.0 [facility] Mean corpuscular hemoglobin (MCH) determination 27.8 pg 27.0-32.0 [facility] Mean corpuscular hemoglobin concentration (MCHC) determinationOrdered By: Millie Massey on 08-28-2024 Mean corpuscular hemoglobin concentration (MCHC) determination 29.3 g/dL Low 32-36 [facility] Mean platelet volume determi nationOrdered By: Millie Massey on 08-28-2024 Mean platelet volume determination 10.8 fl 6.2-12.0 [facility] Platelet countOrdered By: Carter Massey on 08-28-2024 Platelets (Bld) [#/Vol] 261 10*3/uL 150-450 [facility] Platelet count 261 K/mm3 150-450 [facility] RBC Auto (Bld) [#/Vol]Ordere d By: Millie Massey on 08-28-2024 RBC (Bld) [#/Vol] 2.55 10*6/uL Low 4.2-5.4 [facility] Automated blood erythrocyte count 2.55 M/mm3 Low 4.2-5.4 [facility] White blood cell (WBC) count Ordered By: Millie Massey on 08-28-2024 WBC (Bld) [#/Vol] 4.3 10*3/uL Low 4.4-11.0 [facility] White blood cell (WBC) count 4.3 K/mm3 Low 4.4-11.0 [facility] ALP [Catalytic activity/Vol] Ordered By: Millie Massey on 08-26-2024 Serum or plasma alkaline phosphatase measurement 81 U/L 35-104 [facility] ALT [Catalytic activity/Vol] Ordered By: Millie Massey on 08-26-2024 Serum or plasma alanine aminotransferase (ALT) measurement 10 U/L <35 [facility] Albumin [Mass/Vol]Ordered By : Millie Massey on 08-26-2024 Serum or plasma albumin measurement (mass/volume) 2.1 g/dL Low 3.4-4.8 [facility] Albumin/Globulin [Mass ratio ]Ordered By: Millie Massey on 08-26-2024 Serum or plasma albumin/globulin mass ratio 0.6 RATIO Low 0.9-2.4 [facility] Anion gap [Moles/Vol]Ordered By: Millie Massey on 08-26-2024 Anion gap in Serum or Plasma 12 5-15 [facility] Anion gap in Serum or Plasma Ordered By: Millie Massey on 08-26-2024 Anion gap [Moles/Vol] 12 mmol/L 5-[address] [facility] BUN/creatinine ratioOrdered By: Millie Massey on 08-26-2024 Urea nitrogen/Creatinine [Mass ratio] 24.2 mg/mg High 10-20 [facility] BUN/creatinine ratio 24.2 RATIO High 10-20 [facility] Bilirubin, totalOrdered By: Millie Massey on 08-26-2024 Bilirubin [Mass/Vol] 0.19 mg/dL 0.00-1.30 [facility] Bilirubin, total 0.19 mg/dL 0.00-1.30 [facility] Blood manual differential co mment interpretation (narrative result)Ordered By: Millie Massey on 08-26-2024 Manual differential comment Horace (Bld) [Interp] COMMENT [facility] CBC-Complete Blood Cnt No Di ffon 08-26-2024 Erythrocyte distribution width (RBC) [Ratio] 21.6 % High 11.6-14.6 [facility] Comment on above: Order Comment: 206 Performed By: #### L 100.0500, L100.4500, L501.5200, L500.4050 ####[facility] [address] [place], [address] Hematocrit (Bld) [Volume fraction] 23.6 % Low 37-47 [facility] Comment on above: Order Comment: 206 Performed By: #### L 100.0500, L100.4500, L501.5200, L500.4050 ####[facility] [address] [place], [address] Hemoglobin (Bld) [Mass/Vol] 7.0 g/dL Low 12.0-15.0 [facility] Comment on above: Order Comment: 206 Performed By: #### L 100.0500, L100.4500, L501.5200, L500.4050 ####[facility] [address] [place], [address] MCH (RBC) [Entitic mass] 27.7 pg Normal 27.0-32.0 [facility] Comment on above: Order Comment: 206 Performed By: #### L 100.0500, L100.4500, L501.5200, L500.4050 ####[facility] [address] [place], [address] MCHC (RBC) [Mass/Vol] 29.7 g/dL Low 32-[address] [facility] Comment on above: Order Comment: 206 Performed By: #### L 100.0500, L100.4500, L501.5200, L500.4050 ####[facility] [address] [place], [address] MCV (RBC) [Entitic vol] 93.3 fL Normal 81-99 [facility] Comment on above: Order Comment: 206 Performed By: #### L 100.0500, L100.4500, L501.5200, L500.4050 ####[facility] [address] [place], [address] Platelet mean volume (Bld) [Entitic vol] 10.2 fL Normal 6.2-12.0 [facility] Comment on above: Order Comment: 206 Performed By: #### L 100.0500, L100.4500, L501.5200, L500.4050 ####[facility] [address] [place], [address] Platelets (Bld) [#/Vol] 260 10*3/uL Normal 150-450 [facility] Comment on above: Order Comment: 206 Performed By: #### L 100.0500, L100.4500, L501.5200, L500.4050 ####[facility] [address] [place], [address] RBC (Bld) [#/Vol] 2.53 10*6/uL Low 4.2-5.4 [facility] Comment on above: Order Comment: 206 Performed By: #### L 100.0500, L100.4500, L501.5200, L500.4050 ####[facility] [address] [place], [address] RDW SD 71.9 fl High 35.1-43.9 [facility] Comment on above: Order Comment: 206 Performed By: #### L 100.0500, L100.4500, L501.5200, L500.4050 ####[facility] [address] [place], [address] WBC (Bld) [#/Vol] 4.2 10*3/uL Low 4.4-11.0 [facility] Comment on above: Order Comment: 206 Performed By: #### L 100.0500, L100.4500, L501.5200, L500.4050 ####[facility] [address] [place], [address] Calcium [Mass/Vol]Ordered By : Millie Massey on 08-26-2024 Serum or plasma calcium measurement (mass/volume) 8.2 mg/dL 7.6-11.0 [facility] Carbon dioxide, total [Moles /volume] in Central venous bloodOrdered By: Millie Massey on 08-26-2024 CO2 [Moles/Vol] 23.7 mmol/L 21.0-32.0 [facility] Carbon dioxide, total [Moles/volume] in Central venous blood 23.7 mmol/L 21.0-32.0 [facility] Chloride assayOrdered By: Carter Massey on 08-26-2024 Chloride [Moles/Vol] 96 mmol/L Low 98-108 [facility] Chloride assay 96 mmol/L Low 98-108 [facility] Comprehensive Metabolic Prof ilon 08-26-2024 Albumin [Mass/Vol] 2.1 g/dL Low 3.4-4.8 [facility] Comment on above: Order Comment: 206 Performed By: #### L 100.0500, L100.4500, L501.5200, L500.4050 ####[facility] [address] [place], [address] Albumin/Globulin [Mass ratio] 0.6 {ratio} Low 0.9-2.4 [facility] Comment on above: Order Comment: 206 Performed By: #### L 100.0500, L100.4500, L501.5200, L500.4050 ####[facility] [address] [place], [address] ALK PHOS 81 U/L Normal 35-104 [facility] Comment on above: Order Comment: 206 Performed By: #### L 100.0500, L100.4500, L501.5200, L500.4050 ####[facility] [address] [place], [address] ALT [Catalytic activity/Vol] 10 U/L Normal <=34 [facility] Comment on above: Order Comment: 206 Performed By: #### L 100.0500, L100.4500, L501.5200, L500.4050 ####[facility] [address] [place], [address] AST [Catalytic activity/Vol] 30 U/L Normal <=31 [facility] Comment on above: Order Comment: 206 Performed By: #### L 100.0500, L100.4500, L501.5200, L500.4050 ####[facility] [address] [place], [address] Bilirubin [Mass/Vol] 0.19 mg/dL Normal 0.00-1.30 [facility] Comment on above: Order Comment: 206 Performed By: #### L 100.0500, L100.4500, L501.5200, L500.4050 ####[facility] [address] [place], [address] BUN/CRE 24.2 RATIO High 10-20 [facility] Comment on above: Order Comment: 206 Performed By: #### L 100.0500, L100.4500, L501.5200, L500.4050 ####[facility] [address] [place], [address] Calcium [Mass/Vol] 8.2 mg/dL Normal 7.6-11.0 [facility] Comment on above: Order Comment: 206 Performed By: #### L 100.0500, L100.4500, L501.5200, L500.4050 ####[facility] [address] [place], [address] Chloride [Moles/Vol] 96 mmol/L Low 98-108 [facility] Comment on above: Order Comment: 206 Performed By: #### L 100.0500, L100.4500, L501.5200, L500.4050 ####[facility] [address] [place], [address] CO2 [Moles/Vol] 23.7 mmol/L Normal 21.0-32.0 [facility] Comment on above: Order Comment: 206 Performed By: #### L 100.0500, L100.4500, L501.5200, L500.4050 ####[facility] [address] [place], [address] Creatinine [Mass/Vol] 1.49 mg/dL High 0.70-1.[address] [facility] Comment on above: Order Comment: 206 Performed By: #### L 100.0500, L100.4500, L501.5200, L500.4050 ####[facility] [address] [place], [address] GAP 12 Normal 5-15 [facility] Comment on above: Order Comment: 206 Performed By: #### L 100.0500, L100.4500, L501.5200, L500.4050 ####[facility] [address] [place], [address] GFR/1.73 sq M.predicted among non-blacks MDRD (S/P/Bld) [Vol rate/Area] 39 mL/min/{1.73_m2} Low >60 [facility] Comment on above: Order Comment: 206 Result Comment: mL/m in/1.73m2 CKD-EPI Creatinine Equation (2020) Performed By: #### L 100.0500, L100.4500, L501.5200, L500.4050 ####[facility] [address] [place], [address] Globulin (S) [Mass/Vol] 3.3 g/dL Normal 2.2-4.2 [facility] Comment on above: Order Comment: 206 Performed By: #### L 100.0500, L100.4500, L501.5200, L500.4050 ####[facility] [address] [place], [address] Glucose [Mass/Vol] 93 mg/dL Normal 70-99 [facility] Comment on above: Order Comment: 206 Performed By: #### L 100.0500, L100.4500, L501.5200, L500.4050 ####[facility] [address] [place], [address] Potassium [Moles/Vol] 4.9 mmol/L Normal 3.3-5.[address] [facility] Comment on above: Order Comment: 206 Performed By: #### L 100.0500, L100.4500, L501.5200, L500.4050 ####[facility] [address] [place], [address] Sodium [Moles/Vol] 131 mmol/L Low 133-145 [facility] Comment on above: Order Comment: 206 Performed By: #### L 100.0500, L100.4500, L501.5200, L500.4050 ####[facility] [address] [place], [address] T PROT 5.4 g/dL Low 5.9-8.4 [facility] Comment on above: Order Comment: 206 Performed By: #### L 100.0500, L100.4500, L501.5200, L500.4050 ####[facility] [address] [place], [address] Urea nitrogen [Mass/Vol] 36 mg/dL High 4-19 [facility] Comment on above: Order Comment: 206 Performed By: #### L 100.0500, L100.4500, L501.5200, L500.4050 ####[facility] [address] [place], [address] Creatinine [Mass/Vol]Ordered By: Millie Massey on 08-26-2024 Serum creatinine measurement (mass/volume) 1.49 mg/dL High 0.70-1.20 [facility] Differential Commenton 08-26 SMEAR COMMENT COMMENT Normal [facility] Comment on above: Order Comment: 206 Result Comment: 2+ A NISO. Performed By: #### L 100.0500, L100.4500, L501.5200, L500.4050 ####[facility] [address] [place], [address] Erythrocyte distribution wid th (RBC) [Ratio]Ordered By: Millie Massey on 08-26-2024 Erythrocyte distribution width ratio 21.6 % High 11.6-14.6 [facility] Erythrocyte distribution width standard deviation 71.9 fl High 35.1-43.9 [facility] Erythrocyte distribution wid th ratioOrdered By: Millie Massey on 08-26-2024 Erythrocyte distribution width (RBC) [Ratio] 21.6 % High 11.6-14.6 [facility] Erythrocyte distribution wid th standard deviationOrdered By: Millie Massey on 08-26-2024 Erythrocyte distribution width (RBC) [Ratio] 71.9 fl High 35.1-43.9 [facility] GFR/1.73 sq M.predicted víctor g non-blacks MDRD (S/P/Bld) [Vol rate/Area]Ordered By: Millie Massey on 08-26-2024 Glomerular filtration rate (GFR) estimation/1.73 sq m using serum, plasma, or whole b 39 Low >60 [facility] Glomerular filtration rate ( GFR) estimation/1.73 sq m using serum, plasma, or whole bOrdered By: Millie Massey on 08-26-2024 GFR/1.73 sq M.predicted among non-blacks MDRD (S/P/Bld) [Vol rate/Area] 39 mL/min/{1.73_m2} Low >60 [facility] Glucose [Mass/Vol]Ordered By : Millie Massey on 08-26-2024 Serum glucose measurement (mass/volume) 93 mg/dL 70-99 [facility] Hematocrit Auto (Bld) [Volum e fraction]Ordered By: Millie Massey on 08-26-2024 Hematocrit (Bld) [Volume fraction] 23.6 % Low 37-47 [facility] Automated blood hematocrit (percentage) 23.6 % Low 37-47 [facility] Hemoglobin measurementOrdere d By: Millie Massey on 08-26-2024 Hemoglobin (Bld) [Mass/Vol] 7.0 g/dL Low 12.0-15.0 [facility] Hemoglobin measurement 7.0 g/dL Low 12.0-15.0 [facility] MCV (RBC) [Entitic vol]Order ed By: Millie Massey on 08-26-2024 MCV (mean corpuscular volume) determination 93.3 fL 81-99 [facility] MCV (mean corpuscular volume ) determinationOrdered By: Millie Massey on 08-26-2024 MCV (RBC) [Entitic vol] 93.3 fL 81-99 [facility] Magnesiumon 08-26-2024 Magnesium [Mass/Vol] 1.8 mg/dL Normal 1.5-2.2 [facility] Comment on above: Order Comment: 206 Performed By: #### L 100.0500, L100.4500, L501.5200, L500.4050 ####[facility] [address] [place], [place], [id number] Magnesium (Unsp spec) [Mass/ Vol]Ordered By: Millie Massey on 08-26-2024 Magnesium measurement (mass/volume) 1.8 mg/dL 1.5-2.2 [facility] Magnesium measurement (mass/ volume)Ordered By: Millie Massey on 08-26-2024 Magnesium (Unsp spec) [Mass/Vol] 1.8 mg/dL 1.5-2.2 [facility] Manual differential comment Horace (Bld) [Interp]Ordered By: Millie Massey on 08-26-2024 Blood manual differential comment interpretation (narrative result) COMMENT [facility] Mean corpuscular hemoglobin (MCH) determinationOrdered By: Millie Massey on 08-26-2024 MCH (RBC) [Entitic mass] 27.7 pg 27.0-32.0 [facility] Mean corpuscular hemoglobin (MCH) determination 27.7 pg 27.0-32.0 [facility] Mean corpuscular hemoglobin concentration (MCHC) determinationOrdered By: Millie Massey on 08-26-2024 Mean corpuscular hemoglobin concentration (MCHC) determination 29.7 g/dL Low 32-36 [facility] Mean platelet volume determi nationOrdered By: Millie Massey on 08-26-2024 Mean platelet volume determination 10.2 fl 6.2-12.0 [facility] No Panel InformationOrdered By: Millie Massey on 08-26-2024 30 U/L <32 [facility] Platelet countOrdered By: Carter Massey on 08-26-2024 Platelets (Bld) [#/Vol] 260 10*3/uL 150-450 [facility] Platelet count 260 K/mm3 150-450 [facility] Potassium (Unsp spec) [Mass/ Vol]Ordered By: Millie Massey on 08-26-2024 Potassium measurement (mass/volume) 4.9 mmol/L 3.3-5.1 [facility] Potassium measurement (mass/ volume)Ordered By: Millie Massey on 08-26-2024 Potassium (Unsp spec) [Mass/Vol] 4.9 mmol/L 3.3-5.1 [facility] RBC Auto (Bld) [#/Vol]Ordere d By: Millie Massey on 08-26-2024 RBC (Bld) [#/Vol] 2.53 10*6/uL Low 4.2-5.4 [facility] Automated blood erythrocyte count 2.53 M/mm3 Low 4.2-5.4 [facility] Serum creatinine measurement (mass/volume)Ordered By: Millie Massey on 08-26-2024 Creatinine [Mass/Vol] 1.49 mg/dL High 0.70-1.[address] [facility] Serum globulin measurementOr dered By: Millie Massey on 08-26-2024 Globulin (S) [Mass/Vol] 3.3 g/dL 2.2-4.2 [facility] Serum globulin measurement 3.3 g/dL 2.2-4.2 [facility] Serum glucose measurement (m ass/volume)Ordered By: Millie Massey on 08-26-2024 Glucose [Mass/Vol] 93 mg/dL 70-99 [facility] Serum or plasma alanine camargo otransferase (ALT) measurementOrdered By: Millie Massey on 08-26-2024 ALT [Catalytic activity/Vol] 10 U/L <35 [facility] Serum or plasma albumin megan urement (mass/volume)Ordered By: Millie Massey on 08-26-2024 Albumin [Mass/Vol] 2.1 g/dL Low 3.4-4.8 [facility] Serum or plasma albumin/glob ulin mass ratioOrdered By: Millie Massey on 08-26-2024 Albumin/Globulin [Mass ratio] 0.6 {ratio} Low 0.9-2.4 [facility] Serum or plasma alkaline susan sphatase measurementOrdered By: Millie Massey on 08-26-2024 ALP [Catalytic activity/Vol] 81 U/L 35-104 [facility] Serum or plasma calcium megan urement (mass/volume)Ordered By: Millie Massey on 08-26-2024 Calcium [Mass/Vol] 8.2 mg/dL 7.6-11.0 [facility] Serum or plasma urea nitroge n measurement (mass/volume)Ordered By: Millie Massey on 08-26-2024 Urea nitrogen [Mass/Vol] 36 mg/dL High 09-14 [facility] Sodium levelOrdered By: Silvana Massey on 08-26-2024 Sodium [Moles/Vol] 131 mmol/L Low 133-145 [facility] Sodium level 131 mmol/L Low 133-145 [facility] Total proteinOrdered By: Lesli Massey on 08-26-2024 Protein [Mass/Vol] 5.4 g/dL Low 5.9-8.4 [facility] Total protein 5.4 g/dL Low 5.9-8.4 [facility] Urea nitrogen [Mass/Vol]Orde red By: Millie Massey on 08-26-2024 Serum or plasma urea nitrogen measurement (mass/volume) 36 mg/dL High 09-14 [facility] White blood cell (WBC) count Ordered By: Millie Massey on 08-26-2024 WBC (Bld) [#/Vol] 4.2 10*3/uL Low 4.4-11.0 [facility] White blood cell (WBC) count 4.2 K/mm3 Low 4.4-11.0 [facility] Anion gap [Moles/Vol]Ordered By: Millie Massey on 08-22-2024 Anion gap in Serum or Plasma 7 5- [facility] Anion gap in Serum or Plasma Ordered By: Millie Massey on 08-22-2024 Anion gap [Moles/Vol] 7 mmol/L - [facility] BUN/creatinine ratioOrdered By: Millie Massey on 08-22-2024 Urea nitrogen/Creatinine [Mass ratio] 20.6 mg/mg High 03-17 [facility] BUN/creatinine ratio 20.6 RATIO High - [facility] Basic Metabolic Profile (BMP )on 08-22-2024 BUN/CRE 20.6 RATIO High 03-17 [facility] Comment on above: Order Comment: 206.1 Performed By: #### L 500.8692 ####[facility] [address] [place], [address] Calcium [Mass/Vol] 7.7 mg/dL Normal 7.6-11.0 [facility] Comment on above: Order Comment: . Performed By: #### L 500.2500 ####[facility] [address] [place], [address] Chloride [Moles/Vol] 99 mmol/L Normal 98-108 [facility] Comment on above: Order Comment: . Performed By: #### L 500.2500 ####[facility] [address] [place], [address] CO2 [Moles/Vol] 30.8 mmol/L Normal 21.0-32.0 [facility] Comment on above: Order Comment: . Performed By: #### L 500.2500 ####[facility] [address] [place], [address] Creatinine [Mass/Vol] 0.89 mg/dL Normal 0.70-1.[address] [facility] Comment on above: Order Comment: . Performed By: #### L 500.2500 ####[facility] [address] [place], [address] GAP 7 Normal 5-15 [facility] Comment on above: Order Comment: . Performed By: #### L 500.2500 ####[facility] [address] [place], [address] GFR/1.73 sq M.predicted among non-blacks MDRD (S/P/Bld) [Vol rate/Area] 73 mL/min/{1.73_m2} Normal >60 [facility] Comment on above: Order Comment: . Result Comment: mL/m in/1.73m2 CKD-EPI Creatinine Equation (2020) Performed By: #### L 500.2500 ####[facility] [address] [place], [address] Glucose [Mass/Vol] 113 mg/dL High 70-99 [facility] Comment on above: Order Comment: 206.1 Performed By: #### L 500.2500 ####[facility] [address] [place], [address] Potassium [Moles/Vol] 3.4 mmol/L Normal 3.3-5.[address] [facility] Comment on above: Order Comment: 206.1 Performed By: #### L 500.2500 ####[facility] [address] [place], [address] Sodium [Moles/Vol] 136 mmol/L Normal 133-145 [facility] Comment on above: Order Comment: 206.1 Performed By: #### L 500.2500 ####[facility] [address] [place], [address] Urea nitrogen [Mass/Vol] 18 mg/dL Normal 4-19 [facility] Comment on above: Order Comment: 206.1 Performed By: #### L 500.2500 ####[facility] [address] [place], [address] Calcium [Mass/Vol]Ordered By : Millie Massey on 08-22-2024 Serum or plasma calcium measurement (mass/volume) 7.7 mg/dL 7.6-11.0 [facility] Carbon dioxide, total [Moles /volume] in Central venous bloodOrdered By: Millie Massey on 08-22-2024 CO2 [Moles/Vol] 30.8 mmol/L 21.0-32.0 [facility] Carbon dioxide, total [Moles/volume] in Central venous blood 30.8 mmol/L 21.0-32.0 [facility] Chloride assayOrdered By: Carter Massey on 08-22-2024 Chloride [Moles/Vol] 99 mmol/L 98-108 [facility] Chloride assay 99 mmol/L 98-108 [facility] Creatinine [Mass/Vol]Ordered By: Millie Massey on 08-22-2024 Serum creatinine measurement (mass/volume) 0.89 mg/dL 0.70-1.20 [facility] GFR/1.73 sq M.predicted víctor g non-blacks MDRD (S/P/Bld) [Vol rate/Area]Ordered By: Millie Massey on 08-22-2024 Glomerular filtration rate (GFR) estimation/1.73 sq m using serum, plasma, or whole b 73 >60 [facility] Glomerular filtration rate ( GFR) estimation/1.73 sq m using serum, plasma, or whole bOrdered By: Millie Massey on 08-22-2024 GFR/1.73 sq M.predicted among non-blacks MDRD (S/P/Bld) [Vol rate/Area] 73 mL/min/{1.73_m2} >60 [facility] Glucose [Mass/Vol]Ordered By : Millie Massey on 08-22-2024 Serum glucose measurement (mass/volume) 113 mg/dL High 70-99 [facility] Potassium (Unsp spec) [Mass/ Vol]Ordered By: Millie Massey on 08-22-2024 Potassium measurement (mass/volume) 3.4 mmol/L 3.3-5.1 [facility] Potassium measurement (mass/ volume)Ordered By: Millie Massey on 08-22-2024 Potassium (Unsp spec) [Mass/Vol] 3.4 mmol/L 3.3-5.1 [facility] Serum creatinine measurement (mass/volume)Ordered By: Millie Massey on 08-22-2024 Creatinine [Mass/Vol] 0.89 mg/dL 0.70-1.[address] [facility] Serum glucose measurement (m ass/volume)Ordered By: Millie Massey on 08-22-2024 Glucose [Mass/Vol] 113 mg/dL High 70-99 [facility] Serum or plasma calcium megan urement (mass/volume)Ordered By: Millie Massey on 08-22-2024 Calcium [Mass/Vol] 7.7 mg/dL 7.6-11.0 [facility] Serum or plasma urea nitroge n measurement (mass/volume)Ordered By: Millie Massey on 08-22-2024 Urea nitrogen [Mass/Vol] 18 mg/dL 4-19 [facility] Sodium levelOrdered By: Silvana Massey on 08-22-2024 Sodium [Moles/Vol] 136 mmol/L 133-145 [facility] Sodium level 136 mmol/L 133-145 [facility] Urea nitrogen [Mass/Vol]Orde red By: Millie Massey on 08-22-2024 Serum or plasma urea nitrogen measurement (mass/volume) 18 mg/dL 09-14 [facility] Amylase Body Fluidon 025 AMYLASE,BDY FLD 30 U/L Normal . [facility] Comment on above: Order Comment: Test( s) 329427-tI, Body Fluidwas developed and its performance characteristicsdetermined by [employer]. It has not been cleared or approvedby [...] Saliva : : : (Mixed Glands) : [id number] - [id number] : : : : Blaze Penny V. Reference Intervals for Adults and Children 2007. Ninth Edition (V9.1) [employer], [facility]; [place]: November 2008. Performed By: #### L 3800.0400, L3800.0050 ####[facility] [address] [place], [address] Culture, Anaerobic Any Sourc tim 08-20-2024 CUAN No growth in 5 days. Normal [facility] Comment on above: Performed By: #### L 350.1000, L504.0250, L503.0300, L200.0200, L503.0100, M100.2900, M100.2000, M100.4001 ####[facility] [address] [place], [address] pH, Body Fluid [id number] 08-20 PH, BODY FLUID 7.3 Normal Not Estab. [facility] Comment on above: Order Comment: Test( s) [id number], Body Fluidwas developed and its performance characteristicsdetermined by [employer]. It has not been cleared or approvedby the Food and Drug Administration.Specimen Comment: A duplicate report has been generateddue to demographicSpecimen Comment: updates. Result Comment: The reference interval(s) and other method performance specificationshave not been established for this body fluid. The test result must beintegrated into the clinical context for interpretation. Performed By: #### L 3800.0400, L3800.0050 ####[facility] [address] [place], [address] Anion gap [Moles/Vol]Ordered By: Millie Massey on 08-19-2024 Anion gap in Serum or Plasma 7 10-10 [facility] Anion gap in Serum or Plasma Ordered By: Millie Massey on 08-19-2024 Anion gap [Moles/Vol] 7 mmol/L 10-[address] [facility] BUN/creatinine ratioOrdered By: Millie Massey on 08-19-2024 Urea nitrogen/Creatinine [Mass ratio] 28.6 mg/mg High 10 [facility] BUN/creatinine ratio 28.6 RATIO High 03-17 [facility] Basic Metabolic Profile (BMP )on 03-24-2025 BUN/CRE 28.6 RATIO High 10-20 [facility] Comment on above: Order Comment: - Performed By: #### L 500.2500, L100.0500, L501.5200 ####[facility] [address] [place], [address] Calcium [Mass/Vol] 8.1 mg/dL Normal 7.6-11.0 [facility] Comment on above: Order Comment: - Performed By: #### L 500.2500, L100.0500, L501.5200 ####[facility] [address] [place], [address] Chloride [Moles/Vol] 100 mmol/L Normal 98-108 [facility] Comment on above: Order Comment: - Performed By: #### L 500.2500, L100.0500, L501.5200 ####[facility] [address] [place], [address] CO2 [Moles/Vol] 23.0 mmol/L Normal 21.0-32.0 [facility] Comment on above: Order Comment: -1 Performed By: #### L 500.2500, L100.0500, L501.5200 ####[facility] [address] [place], [address] Creatinine [Mass/Vol] 1.34 mg/dL High 0.70-1.[address] [facility] Comment on above: Order Comment: - Performed By: #### L 500.2500, L100.0500, L501.5200 ####[facility] [address] [place], [address] GAP 7 Normal 5-15 [facility] Comment on above: Order Comment: - Performed By: #### L 500.2500, L100.0500, L501.5200 ####[facility] [address] [place], [address] GFR/1.73 sq M.predicted among non-blacks MDRD (S/P/Bld) [Vol rate/Area] 45 mL/min/{1.73_m2} Low >60 [facility] Comment on above: Order Comment: Result Comment: mL/m in/1.73m2 CKD-EPI Creatinine Equation (2020) Performed By: #### L 500.2500, L100.0500, L501.5200 ####[facility] [address] [place], [address] Glucose [Mass/Vol] 89 mg/dL Normal 70-99 [facility] Comment on above: Order Comment: Performed By: #### L 500.2500, L100.0500, L501.5200 ####[facility] [address] [place], [address] Potassium [Moles/Vol] 6.8 mmol/L Invalid Interpretation Code 3.3-5.1 [facility] Comment on above: Order Comment: Result Comment: Hemo lysis present, Results??could be affected.??Critical Result(s) Called at: 0635 by: WALTER KENNEDY TO JACKIE SAUER??Results read back by same. Performed By: #### L 500.2500, L100.0500, L501.5200 ####[facility] [address] [place], [address] Sodium [Moles/Vol] 130 mmol/L Low 133-145 [facility] Comment on above: Order Comment: Performed By: #### L 500.2500, L100.0500, L501.5200 ####[facility] [address] [place], [address] Urea nitrogen [Mass/Vol] 38 mg/dL High 4-19 [facility] Comment on above: Order Comment: Performed By: #### L 500.2500, L100.0500, L501.5200 ####[facility] [address] [place], [address] CBC-Complete Blood Cnt No Di ffon 08-19-2024 Erythrocyte distribution width (RBC) [Ratio] 23.3 % High 11.6-14.6 [facility] Comment on above: Order Comment: Performed By: #### L 500.2500, L100.0500, L501.5200 ####[facility] [address] [place], [address] Hematocrit (Bld) [Volume fraction] 25.7 % Low 37-47 [facility] Comment on above: Order Comment: Performed By: #### L 500.2500, L100.0500, L501.5200 ####[facility] [address] [place], [address] Hemoglobin (Bld) [Mass/Vol] 7.8 g/dL Low 12.0-15.0 [facility] Comment on above: Order Comment: Performed By: #### L 500.2500, L100.0500, L501.5200 ####[facility] [address] [place], [address] MCH (RBC) [Entitic mass] 28.4 pg Normal 27.0-32.0 [facility] Comment on above: Order Comment: Performed By: #### L 500.2500, L100.0500, L501.5200 ####[facility] [address] [place], [address] MCHC (RBC) [Mass/Vol] 30.4 g/dL Low 32-[address] [facility] Comment on above: Order Comment: Performed By: #### L 500.2500, L100.0500, L501.5200 ####[facility] [address] [place], [address] MCV (RBC) [Entitic vol] 93.5 fL Normal 81-99 [facility] Comment on above: Order Comment: - Performed By: #### L 500.2500, L100.0500, L501.5200 ####[facility] [address] [place], [address] Platelet mean volume (Bld) [Entitic vol] 10.2 fL Normal 6.2-12.0 [facility] Comment on above: Order Comment: - Performed By: #### L 500.2500, L100.0500, L501.5200 ####[facility] [address] [place], [address] Platelets (Bld) [#/Vol] 168 10*3/uL Normal 150-450 [facility] Comment on above: Order Comment: - Performed By: #### L 500.2500, L100.0500, L501.5200 ####[facility] [address] [place], [address] RBC (Bld) [#/Vol] 2.75 10*6/uL Low 4.2-5.4 [facility] [facility] Comment on above: Order Comment: - Performed By: #### L 500.2500, L100.0500, L501.5200 ####[facility] [address] [place], [address] RDW SD 76.4 fl High 35.1-43.9 [facility] Comment on above: Order Comment: - Performed By: #### L 500.2500, L100.0500, L501.5200 ####[facility] [address] [place], [address] WBC (Bld) [#/Vol] 3.8 10*3/uL Low 4.4-11.0 [facility] Comment on above: Order Comment: - Performed By: #### L 500.2500, L100.0500, L501.5200 ####[facility] [address] [place], [place], [id number] Calcium [Mass/Vol]Ordered By : Millie Massey on 08-19-2024 Serum or plasma calcium measurement (mass/volume) 8.1 mg/dL 7.6-11.0 [facility] Carbon dioxide, total [Moles /volume] in Central venous bloodOrdered By: Millie Massey on 08-19-2024 CO2 [Moles/Vol] 23.0 mmol/L 21.0-32.0 [facility] Carbon dioxide, total [Moles/volume] in Central venous blood 23.0 mmol/L 21.0-32.0 [facility] Chloride assayOrdered By: Carter Massey on 08-19-2024 Chloride [Moles/Vol] 100 mmol/L 98-108 [facility] Chloride assay 100 mmol/L 98-108 [facility] Creatinine [Mass/Vol]Ordered By: Millie Massey on 08-19-2024 Serum creatinine measurement (mass/volume) 1.34 mg/dL High 0.70-1.20 [facility] Culture, Blood (WB)on 2024 CUB Blood cultures x2, f rom two different sites No growth in 5 days. Normal [facility] Comment on above: Performed By: #### M 200.1000 ####[facility] [address] [place], [place], [id number] CUB Blood cultures x2, f rom two different sites No growth in 5 days. Normal [facility] Comment on above: Performed By: #### M 200.1000, L503.6005, L501.4021 ####[facility] [address] [place], [place], [id number] Erythrocyte distribution wid th (RBC) [Ratio]Ordered By: Millie Massey on 08-19-2024 Erythrocyte distribution width ratio 23.3 % High 11.6-14.6 [facility] Erythrocyte distribution width standard deviation 76.4 fl High 35.1-43.9 [facility] Erythrocyte distribution wid th ratioOrdered By: Millie Massey on 08-19-2024 Erythrocyte distribution width (RBC) [Ratio] 23.3 % High 11.6-14.6 [facility] Erythrocyte distribution wid th standard deviationOrdered By: Millie Massey on 08-19-2024 Erythrocyte distribution width (RBC) [Ratio] 76.4 fl High 35.1-43.9 [facility] GFR/1.73 sq M.predicted víctor g non-blacks MDRD (S/P/Bld) [Vol rate/Area]Ordered By: Millie Massey on 08-19-2024 Glomerular filtration rate (GFR) estimation/1.73 sq m using serum, plasma, or whole b 45 Low >60 [facility] Glomerular filtration rate ( GFR) estimation/1.73 sq m using serum, plasma, or whole bOrdered By: Millie Massey on 08-19-2024 GFR/1.73 sq M.predicted among non-blacks MDRD (S/P/Bld) [Vol rate/Area] 45 mL/min/{1.73_m2} Low >60 [facility] Glucose [Mass/Vol]Ordered By : Millie Massey on 08-19-2024 Serum glucose measurement (mass/volume) 89 mg/dL 70-99 [facility] Hematocrit Auto (Bld) [Volum e fraction]Ordered By: Millie Massey on 08-19-2024 Hematocrit (Bld) [Volume fraction] 25.7 % Low 37-47 [facility] Automated blood hematocrit (percentage) 25.7 % Low 37-47 [facility] Hemoglobin measurementOrdere d By: Millie Massey on 08-19-2024 Hemoglobin (Bld) [Mass/Vol] 7.8 g/dL Low 12.0-15.0 [facility] Hemoglobin measurement 7.8 g/dL Low 12.0-15.0 [facility] MCV (RBC) [Entitic vol]Order ed By: Millie Massey on 08-19-2024 MCV (mean corpuscular volume) determination 93.5 fL 81-99 [facility] MCV (mean corpuscular volume ) determinationOrdered By: Millie Massey on 08-19-2024 MCV (RBC) [Entitic vol] 93.5 fL 81-99 [facility] Magnesiumon 08-19-2024 Magnesium [Mass/Vol] 1.6 mg/dL Normal 1.5-2.2 [facility] Comment on above: Order Comment: Performed By: #### L 500.2500, L100.0500, L501.5200 ####[facility] [address] [place], [address] Magnesium (Unsp spec) [Mass/ Vol]Ordered By: Millie Massey on 08-19-2024 Magnesium measurement (mass/volume) 1.6 mg/dL 1.5-2.2 [facility] Magnesium measurement (mass/ volume)Ordered By: Millie Massey on 08-19-2024 Magnesium (Unsp spec) [Mass/Vol] 1.6 mg/dL 1.5-2.2 [facility] Mean corpuscular hemoglobin (MCH) determinationOrdered By: Millie Massey on 08-19-2024 MCH (RBC) [Entitic mass] 28.4 pg 27.0-32.0 [facility] Mean corpuscular hemoglobin (MCH) determination 28.4 pg 27.0-32.0 [facility] Mean corpuscular hemoglobin concentration (MCHC) determinationOrdered By: Millie aMssey on 08-19-2024 Mean corpuscular hemoglobin concentration (MCHC) determination 30.4 g/dL Low 32-36 [facility] Mean platelet volume determi nationOrdered By: Millie Massey on 08-19-2024 Mean platelet volume determination 10.2 fl 6.2-12.0 [facility] Platelet countOrdered By: Carter Massey on 08-19-2024 Platelets (Bld) [#/Vol] 168 10*3/uL 150-450 [facility] Platelet count 168 K/mm3 150-450 [facility] Potassium (Unsp spec) [Mass/ Vol]Ordered By: Millie Massey on 08-19-2024 Potassium measurement (mass/volume) 6.8 mmol/L High 3.3-5.1 [facility] Potassium measurement (mass/ volume)Ordered By: Millie Massey on 08-19-2024 Potassium (Unsp spec) [Mass/Vol] 6.8 mmol/L High 3.3-5.1 [facility] RBC Auto (Bld) [#/Vol]Ordere d By: Millie Massey on 08-19-2024 RBC (Bld) [#/Vol] 2.75 10*6/uL Low 4.2-5.4 [facility] Automated blood erythrocyte count 2.75 M/mm3 Low 4.2-5.4 [facility] Serum creatinine measurement (mass/volume)Ordered By: Millie Massey on 08-19-2024 Creatinine [Mass/Vol] 1.34 mg/dL High 0.70-1.[address] [facility] Serum glucose measurement (m ass/volume)Ordered By: Millie Massey on 08-19-2024 Glucose [Mass/Vol] 89 mg/dL 70-99 [facility] Serum or plasma calcium megan urement (mass/volume)Ordered By: Millie Massey on 08-19-2024 Calcium [Mass/Vol] 8.1 mg/dL 7.6-11.0 [facility] Serum or plasma urea nitroge n measurement (mass/volume)Ordered By: Millie Massey on 08-19-2024 Urea nitrogen [Mass/Vol] 38 mg/dL High 09-14 [facility] Sodium levelOrdered By: Silvana Massey on 08-19-2024 Sodium [Moles/Vol] 130 mmol/L Low 133-145 [facility] Sodium level 130 mmol/L Low 133-145 [facility] Urea nitrogen [Mass/Vol]Orde red By: Millie Massey on 08-19-2024 Serum or plasma urea nitrogen measurement (mass/volume) 38 mg/dL High 09-14 [facility] White blood cell (WBC) count Ordered By: Millie Massey on 08-19-2024 WBC (Bld) [#/Vol] 3.8 10*3/uL Low 4.4-11.0 [facility] White blood cell (WBC) count 3.8 K/mm3 Low 4.4-11.0 [facility] Body Fluid Culton 08-18-2024 BFC No growth aerobically. Normal [facility] Comment on above: Performed By: #### L 350.1000, L504.0250, L503.0300, L200.0200, L503.0100, M100.2900, M100.2000, M100.4001 ####[facility] [address] [place], [place], [address] Urine Cultureon 08-18-2024 URC Normal [facility] Comment on above: Performed By: #### M 100.2200 ####[facility] [address] [place], [place], [id number] Absolute lymphocyte countOrd ered By: Nikolas Magaña on 08-17-2024 Lymphocytes Auto (Unsp spec) [#/Vol] 0.59 10*3/uL Low 0.83-4.51 [facility] Absolute neutrophil countOrd ered By: Nikolas Magaña on 08-17-2024 Absolute neutrophil count 3.2 X10^3/uL 2.0-7.7 [facility] Anion gap [Moles/Vol]Ordered By: Nikolas Magaña on 08-17-2024 Anion gap in Serum or Plasma 12 5-15 [facility] Anion gap in Serum or Plasma Ordered By: Nikolas Magaña on 08-17-2024 Anion gap [Moles/Vol] 12 mmol/L -[address] [facility] Automated lymphocyte count a s percentage of total leukocytesOrdered By: Nikolas Magaña on 08-17-2024 Lymphocytes/100 WBC Auto (Unsp spec) 13.4 % Low 19-41 [facility] BUN/creatinine ratioOrdered By: Nikolas Magaña on 08-17-2024 Urea nitrogen/Creatinine [Mass ratio] 20.8 mg/mg High 10-20 [facility] BUN/creatinine ratio 20.8 RATIO High 10-20 [facility] Basic Metabolic Profile (BMP )on 08-17-2024 BUN/CRE 20.8 RATIO High 10-20 [facility] Comment on above: Performed By: #### L 100.0100, L500.2500 ####[facility] [address] [place], [address] Calcium [Mass/Vol] 8.2 mg/dL Normal 7.6-11.0 [facility] Comment on above: Performed By: #### L 100.0100, L500.2500 ####[facility] [address] [place], [address] Chloride [Moles/Vol] 101 mmol/L Normal 98-108 [facility] Comment on above: Performed By: #### L 100.0100, L500.2500 ####[facility] [address] [place], [address] CO2 [Moles/Vol] 19.8 mmol/L Low 21.0-32.0 [facility] Comment on above: Performed By: #### L 100.0100, L500.2500 ####[facility] [address] [place], [address] Creatinine [Mass/Vol] 1.07 mg/dL Normal 0.70-1.[address] [facility] Comment on above: Performed By: #### L 100.0100, L500.2500 ####[facility] [address] [place], [address] ECRCL 42.17 ml/min Low 50-250 [facility] Comment on above: Performed By: #### L 100.0100, L500.2500 ####[facility] [address] [place], [address] GAP 12 Normal 5-15 [facility] Comment on above: Performed By: #### L 100.0100, L500.2500 ####[facility] [address] [place], [address] GFR/1.73 sq M.predicted among non-blacks MDRD (S/P/Bld) [Vol rate/Area] 59 mL/min/{1.73_m2} Low >60 [facility] Comment on above: Result Comment: mL/m in/1.73m2 CKD-EPI Creatinine Equation (2020) Performed By: #### L 100.0100, L500.2500 ####[facility] [address] [place], [address] Glucose [Mass/Vol] 83 mg/dL Normal 70-99 [facility] Comment on above: Performed By: #### L 100.0100, L500.2500 ####[facility] [address] [place], [address] Potassium [Moles/Vol] 4.7 mmol/L Normal 3.3-5.[address] [facility] Comment on above: Result Comment: Hemo lysis present, Results??could be affected.?? Performed By: #### L 100.0100, L500.2500 ####[facility] [address] [place], [address] Sodium [Moles/Vol] 133 mmol/L Normal 133-145 [facility] Comment on above: Performed By: #### L 100.0100, L500.2500 ####[facility] [address] [place], [address] Urea nitrogen [Mass/Vol] 22 mg/dL High 4-19 [facility] Comment on above: Performed By: #### L 100.0100, L500.2500 ####[facility] [address] [place], [address] Basophil percentageOrdered B y: Nikolas Magaña on 08-17-2024 Basophils/100 WBC (Bld) 0.9 % 0-1 [facility] Basophil percentage 0.9 % 0-1 [facility] Blood polychromasia detectio n by light microscopyOrdered By: Nikolas Magaña on 08-17-2024 Polychromasia LM Ql (Bld) 2+ [facility] CBC W/Diff, Automatedon 07-28 OVALOCYTE 1+ Normal [facility] Comment on above: Performed By: #### L 100.0100, L500.2500 ####[facility] [address] [place], [address] Anisocytosis Ql (Bld) 1+ Normal [facility] Comment on above: Performed By: #### L 100.0100, L500.2500 ####[facility] [address] [place], [address] POLYCHROMASIA 2+ Normal [facility] Comment on above: Performed By: #### L 100.0100, L500.2500 ####[facility] [address] [place], [address] Calcium [Mass/Vol]Ordered By : Nikolas Magaña on 08-17-2024 Serum or plasma calcium measurement (mass/volume) 8.2 mg/dL 7.6-11.0 [facility] Carbon dioxide, total [Moles /volume] in Central venous bloodOrdered By: Nikolas Magaña on 08-17-2024 CO2 [Moles/Vol] 19.8 mmol/L Low 21.0-32.0 [facility] Carbon dioxide, total [Moles/volume] in Central venous blood 19.8 mmol/L Low 21.0-32.0 [facility] Chloride assayOrdered By: Oscar Magaña on 08-17-2024 Chloride [Moles/Vol] 101 mmol/L 98-108 [facility] Chloride assay 101 mmol/L 98-108 [facility] Creatinine [Mass/Vol]Ordered By: Nikolas Magaña on 08-17-2024 Serum creatinine measurement (mass/volume) 1.07 mg/dL 0.70-1.20 [facility] Eosinophil percentageOrdered By: Nikolas Magaña on 08-17-2024 Eosinophils/100 WBC (Bld) 3.4 % 0-5 [facility] Eosinophil percentage 3.4 % 0-[address] [facility] Erythrocyte distribution wid th (RBC) [Ratio]Ordered By: Nikolas Magaña on 08-17-2024 Erythrocyte distribution width ratio 23.1 % High 11.6-14.6 [facility] Erythrocyte distribution wid th ratioOrdered By: Nikolas Magaña on 08-17-2024 Erythrocyte distribution width (RBC) [Ratio] 23.1 % High 11.6-14.6 [facility] Erythrocyte distribution wid th standard deviationOrdered By: Nikolas Magaña on 08-17-2024 Erythrocyte distribution width (RBC) [Ratio] 74.1 fl High 35.1-43.9 [facility] Erythrocyte distribution width standard deviation 74.1 fl High 35.1-43.9 [facility] Estimation of creatinine austen aranceOrdered By: Nikolas Magaña on 08-17-2024 Estimation of creatinine clearance 42.17 ml/min Low 50-250 [facility] GFR/1.73 sq M.predicted víctor g non-blacks MDRD (S/P/Bld) [Vol rate/Area]Ordered By: Nikolas Magaña on 08-17-2024 Glomerular filtration rate (GFR) estimation/1.73 sq m using serum, plasma, or whole b 59 Low >60 [facility] Glomerular filtration rate ( GFR) estimation/1.73 sq m using serum, plasma, or whole bOrdered By: Nikolas Magaña on 08-17-2024 GFR/1.73 sq M.predicted among non-blacks MDRD (S/P/Bld) [Vol rate/Area] 59 mL/min/{1.73_m2} Low >60 [facility] Glucoseon 08-17-2024 Glucose [Mass/Vol] 73 mg/dL Normal 70-99 [facility] Comment on above: Performed By: #### L 501.0100 ####[facility] [address] [place], [address] Glucose [Mass/Vol]Ordered By : Nikolas Magaña on 08-17-2024 Serum glucose measurement (mass/volume) 83 mg/dL 70-99 [facility] Hematocrit Auto (Bld) [Volum e fraction]Ordered By: Nikolas Magaña on 08-17-2024 Hematocrit (Bld) [Volume fraction] 34.6 % Low 37-47 [facility] Automated blood hematocrit (percentage) 34.6 % Low 37-47 [facility] Hemoglobin measurementOrdere d By: Nikolas Magaña on 08-17-2024 Hemoglobin (Bld) [Mass/Vol] 10.5 g/dL Low 12.0-15.0 [facility] Hemoglobin measurement 10.5 g/dL Low 12.0-15.0 [facility] Immature granulocytes/100 WB C Auto (Bld)Ordered By: Nikolas Magaña on 08-17-2024 Immature granulocytes/100 WBC (Bld) 1.800 % High 0.0-0.9 [facility] Automated immature granulocyte percentage 1.800 % High 0.0-0.9 [facility] Lymphocytes Auto (Unsp spec) [#/Vol]Ordered By: Nikolas Magaña on 08-17-2024 Absolute lymphocyte count 0.59 X10^3/uL Low 0.83-4.51 [facility] Lymphocytes/100 WBC Auto (Un sp spec)Ordered By: Nikolas Magaña on 08-17-2024 Automated lymphocyte count as percentage of total leukocytes 13.4 % Low 19-41 [facility] MCV (RBC) [Entitic vol]Order ed By: Nikolas Magaña on 08-17-2024 MCV (mean corpuscular volume) determination 93.5 fL 81-99 [facility] MCV (mean corpuscular volume ) determinationOrdered By: Nikolas Magaña on 08-17-2024 MCV (RBC) [Entitic vol] 93.5 fL 81-99 [facility] Mean corpuscular hemoglobin (MCH) determinationOrdered By: Nikolas Magaña on 08-17-2024 MCH (RBC) [Entitic mass] 28.4 pg 27.0-32.0 [facility] Mean corpuscular hemoglobin (MCH) determination 28.4 pg 27.0-32.0 [facility] Mean corpuscular hemoglobin concentration (MCHC) determinationOrdered By: Nikolas Magaña on 08-17-2024 Mean corpuscular hemoglobin concentration (MCHC) determination 30.3 g/dL Low 32-36 [facility] Mean platelet volume determi nationOrdered By: Nikolas Magaña on 08-17-2024 Mean platelet volume determination 9.2 fl 6.2-12.0 [facility] Monocyte percentageOrdered B y: Nikolas Magaña on 08-17-2024 Monocytes/100 WBC (Bld) 7.0 % 0-10 [facility] Monocyte percentage 7.0 % 0-10 [facility] Neutrophil percentageOrdered By: Nikolas Magaña on 08-17-2024 Neutrophils/100 WBC (Bld) 73.5 % High 47-70 [facility] Neutrophil percentage 73.5 % High 47-[address] [facility] Nucleated red blood cell per centageOrdered By: Nikolas Magaña on 08-17-2024 Nucleated red blood cell percentage 0 % 0-5 [facility] Ovalocyte detectionOrdered B y: Nikolas Magaña on 08-17-2024 Ovalocytes LM Ql (Bld) 1+ [facility] Ovalocyte detection 1+ [facility] Platelet countOrdered By: Oscar Magaña on 08-17-2024 Platelets (Bld) [#/Vol] 146 10*3/uL Low 150-450 [facility] Platelet count 146 K/mm3 Low 150-450 [facility] Polychromasia LM Ql (Bld)Ord ered By: Nikolas Magaña on 08-17-2024 Blood polychromasia detection by light microscopy 2+ [facility] Potassium (Unsp spec) [Mass/ Vol]Ordered By: Nikolas Magaña on 08-17-2024 Potassium measurement (mass/volume) 4.7 mmol/L 3.3-5.1 [facility] Potassium measurement (mass/ volume)Ordered By: Nikolas Magaña on 08-17-2024 Potassium (Unsp spec) [Mass/Vol] 4.7 mmol/L 3.3-5.1 [facility] RBC Auto (Bld) [#/Vol]Ordere d By: Nikolas Magaña on 08-17-2024 RBC (Bld) [#/Vol] 3.70 10*6/uL Low 4.2-5.4 [facility] Automated blood erythrocyte count 3.70 M/mm3 Low 4.2-5.4 [facility] Serum creatinine measurement (mass/volume)Ordered By: Nikolas Magaña on 08-17-2024 Creatinine [Mass/Vol] 1.07 mg/dL 0.70-1.[address] [facility] Serum glucose measurement (m ass/volume)Ordered By: Nikolas Magaña on 08-17-2024 Glucose [Mass/Vol] 83 mg/dL 70-99 [facility] Serum or plasma calcium megan urement (mass/volume)Ordered By: Nikolas Magaña on 08-17-2024 Calcium [Mass/Vol] 8.2 mg/dL 7.6-11.0 [facility] Serum or plasma urea nitroge n measurement (mass/volume)Ordered By: Nikolas Magaña on 08-17-2024 Urea nitrogen [Mass/Vol] 22 mg/dL High 09-14 [facility] Sodium levelOrdered By: Hemanth Magaña on 08-17-2024 Sodium [Moles/Vol] 133 mmol/L 133-145 [facility] Sodium level 133 mmol/L 133-145 [facility] Urea nitrogen [Mass/Vol]Orde red By: Nikolas Magaña on 08-17-2024 Serum or plasma urea nitrogen measurement (mass/volume) 22 mg/dL High 09-14 [facility] Venous duplex ultrasound rep ortOrdered By: Saul Silva on 08-17-2024 US Vein [facility] Other Phone: White blood cell (WBC) count Ordered By: Nikolas Magaña on 08-17-2024 WBC (Bld) [#/Vol] 4.4 10*3/uL 4.4-11.0 [facility] White blood cell (WBC) count 4.4 K/mm3 4.4-11.0 [facility] Basic Metabolic Profile (BMP )on 08-16-2024 BUN/CRE 25.9 RATIO High 10-20 [facility] Comment on above: Performed By: #### L 100.0100, L500.2500 ####[facility] [address] [place], [address] Calcium [Mass/Vol] 8.0 mg/dL Normal 7.6-11.0 [facility] Comment on above: Performed By: #### L 100.0100, L500.2500 ####[facility] [address] [place], [address] Chloride [Moles/Vol] 102 mmol/L Normal 98-108 [facility] Comment on above: Performed By: #### L 100.0100, L500.2500 ####[facility] [address], [address] CO2 [Moles/Vol] 20.8 mmol/L Low 21.0-32.0 [facility] Comment on above: Performed By: #### L 100.0100, L500.2500 ####[facility] [address] [place], [address] Creatinine [Mass/Vol] 1.27 mg/dL High 0.70-1.[address] [facility] Comment on above: Performed By: #### L 100.0100, L500.2500 ####[facility] [address] [place], [address] ECRCL 38.36 ml/min Low 50-250 [facility] Comment on above: Performed By: #### L 100.0100, L500.2500 ####[facility] [address] [place], [address] GAP 10 Normal 5-15 [facility] Comment on above: Performed By: #### L 100.0100, L500.2500 ####[facility] [address] [place], [address] GFR/1.73 sq M.predicted among non-blacks MDRD (S/P/Bld) [Vol rate/Area] 48 mL/min/{1.73_m2} Low >60 [facility] Comment on above: Result Comment: mL/m in/1.73m2 CKD-EPI Creatinine Equation (2020) Performed By: #### L 100.0100, L500.2500 ####[facility] [address] [place], [address] Glucose [Mass/Vol] 89 mg/dL Normal 70-99 [facility] Comment on above: Performed By: #### L 100.0100, L500.2500 ####[facility] [address] [place], [address] Potassium [Moles/Vol] 5.0 mmol/L Normal 3.3-5.[address] [facility] Comment on above: Performed By: #### L 100.0100, L500.2500 ####[facility] [address] [place], [address] Sodium [Moles/Vol] 132 mmol/L Low 133-145 [facility] Comment on above: Performed By: #### L 100.0100, L500.2500 ####[facility] [address] [place], [address] Urea nitrogen [Mass/Vol] 33 mg/dL High 4-19 [facility] Comment on above: Performed By: #### L 100.0100, L500.2500 ####[facility] [address] [place], [address] Bedside Glucoseon 08-16-2024 FINGERSTICK GLU 24 mg/dL Invalid Interpretation Code [id number] [facility] Comment on above: Result Comment: Dr George mathis FollowedMANAGEMENT OF PATIENT CARE PER NURSING PROTOCOL Performed By: #### L 501.080 ####[facility] [address] [place], [address] FINGERSTICK GLU 57 mg/dL Low 74-106 [facility] Comment on above: Result Comment: LUIZA GEMENT OF PATIENT CARE PER NURSING PROTOCOL Performed By: #### L 501.080 ####[facility] [address] [place], [address] FINGERSTICK GLU 80 mg/dL Normal 74-106 [facility] Comment on above: Result Comment: LUIZA GEMENT OF PATIENT CARE PER NURSING PROTOCOL Performed By: #### L 501.080 ####[facility] [address] [place], [address] CBC W/Diff, Automatedon - Anisocytosis Ql (Bld) 1+ Normal [facility] Comment on above: Performed By: #### L 100.0100, L500.2500 ####[facility] [address] [place], [address] PLT EST A Normal [facility] Comment on above: Performed By: #### L 100.0100, L500.2500 ####[facility] [address] [place], [address] POLYCHROMASIA 1+ Normal [facility] Comment on above: Performed By: #### L 100.0100, L500.2500 ####[facility] [address] [place], [address] Glucoseon 08-16-2024 Glucose [Mass/Vol] 91 mg/dL Normal 70-99 [facility] Comment on above: Performed By: #### L 501.0100 ####[facility] [address] [place], [address] Glucose [Mass/Vol] 109 mg/dL High 70-99 [facility] Comment on above: Performed By: #### L 501.0100 ####[facility] [address] [place], [address] Glucose measurement at bedsi deOrdered By: Nikolas Magaña on 08-16-2024 Glucose [Mass/Vol] 24 mg/dL Low 74-106 [facility] Glucose measurement at bedside 24 mg/dL Low 74-106 [facility] Platelet estimateOrdered By: Nikolas Magaña on 08-16-2024 Platelets LM Ql (Bld) A [facility] Platelets LM Ql (Bld)Ordered By: Nikolas Magaña on 08-16-2024 Platelet estimate A [facility] Amylase (Body fld) [Catalyti c activity/Vol]Ordered By: Nikolas Magaña on 08-15-2024 Amylase body fluid 30 U/L . [facility] Amylase body fluidOrdered By : Nikolas Magaña on 08-15-2024 Amylase (Body fld) [Catalytic activity/Vol] 30 U/L . [facility] Anaerobic cultureOrdered By: Nikolas Magaña on 08-15-2024 Bacteria identified Anaer cx Nom (Unsp spec) No growth in 5 days. [facility] Appearance (Body fld)Ordered By: Nikolas Magaña on 08-15-2024 Body fluid appearance (nominal result) CLEAR [facility] Bacteria identified Anaer cx Nom (Unsp spec)Ordered By: Nikolas Magaña on 08-15-2024 Anaerobic culture No growth in 5 days. [facility] Bedside Glucoseon 08-15-2024 FINGERSTICK GLU 82 mg/dL Normal 74-106 [facility] Comment on above: Result Comment: LUIZA GEMENT OF PATIENT CARE PER NURSING PROTOCOL Performed By: #### L 501.080 ####[facility] [address] [facility] [address] FINGERSTICK GLU 92 mg/dL Normal 74-106 [facility] Comment on above: Result Comment: LUIZA GEMENT OF PATIENT CARE PER NURSING PROTOCOL Performed By: #### L 501.080 ####[facility] [address] [place], [address] FINGERSTICK GLU 90 mg/dL Normal 74-106 [facility] Comment on above: Result Comment: LUIZA GEMENT OF PATIENT CARE PER NURSING PROTOCOL Performed By: #### L 501.080 ####[facility] [address] [facility] [address] FINGERSTICK GLU 70 mg/dL Low 74-106 [facility] Comment on above: Result Comment: LUIZA GEMENT OF PATIENT CARE PER NURSING PROTOCOL Performed By: #### L 501.080 ####[facility] [address] [place], [address] FINGERSTICK GLU 104 mg/dL Normal 74-106 [facility] Comment on above: Result Comment: LUIZA GEMENT OF PATIENT CARE PER NURSING PROTOCOL Performed By: #### L 501.080 ####[facility] [address] [place], [place], [address] Body Fluid Cell Count+Diffon 08-15-2024 Lymphocytes (Bld) [#/Vol] 32 10*3/uL Normal [facility] Comment on above: Order Comment: The r eference interval(s) and other method performancespecifications are unavailable for this body fluid.Comparison of the result with concentration in the blood,serum, or plasma is recommended. Performed By: #### L 350.1000, L504.0250, L503.0300, L200.0200, L503.0100, M100.2900, M100.2000, M100.4001 ####[facility] [address] [place], [address] MESOTHELIAL 4 Normal [facility] Comment on above: Order Comment: The r eference interval(s) and other method performancespecifications are unavailable for this body fluid.Comparison of the result with concentration in the blood,serum, or plasma is recommended. Performed By: #### L 350.1000, L504.0250, L503.0300, L200.0200, L503.0100, M100.2900, M100.2000, M100.4001 ####[facility] [address] [place], [place], [address] MONO/BF 60 Normal [facility] Comment on above: Order Comment: The r eference interval(s) and other method performancespecifications are unavailable for this body fluid.Comparison of the result with concentration in the blood,serum, or plasma is recommended. Performed By: #### L 350.1000, L504.0250, L503.0300, L200.0200, L503.0100, M100.2900, M100.2000, M100.4001 ####[facility] [address] [place], [place], [id number] PMN 4 Normal [facility] Comment on above: Order Comment: The r eference interval(s) and other method performancespecifications are unavailable for this body fluid.Comparison of the result with concentration in the blood,serum, or plasma is recommended. Performed By: #### L 350.1000, L504.0250, L503.0300, L200.0200, L503.0100, M100.2900, M100.2000, M100.4001 ####[facility] [address] [place], [address] Body fluid appearance (nomin al result)Ordered By: Nikolas Magaña on 08-15-2024 Appearance (Body fld) CLEAR [facility] Body fluid color determinati onOrdered By: Nikolas Magaña on 08-15-2024 Color (Body fld) LT YEL [facility] Body fluid cultureOrdered By : Nikolas Magaña on 08-15-2024 Body fluid culture No growth aerobically. [facility] Body fluid lactate dehydroge nase measurement (enzymatic activity/volume) by pyruvateOrdered By: Nikolas Magaña on 08-15-2024 LDH Pyruvate to lactate reaction (Body fld) [Catalytic activity/Vol] 51 Units/L Not Establ. [facility] Body fluid leukocytes count (number/volume)Ordered By: Nikolas Magaña on 08-15-2024 WBC (Body fld) [#/Vol] 0.023 10*3/uL [facility] Body fluid lymphocytes/100 l eukocytesOrdered By: Nikolas Magaña on 08-15-2024 Lymphocytes/100 WBC (Body fld) 32 % [facility] Body fluid mesothelial cell percentageOrdered By: Nikolas Magaña on 08-15-2024 Mesothelial cells/100 WBC (Body fld) 4 % [facility] Body fluid mononuclear cell countOrdered By: Nikolas Magaña on 08-15-2024 Body fluid mononuclear cell count 0.021 10^3/uL [facility] Body fluid mononuclear cell percentageOrdered By: Nikolas Magaña on 08-15-2024 Mononuclear cells/100 WBC (Body fld) 91.3 % [facility] Body fluid pHOrdered By: Myke Magaña on 08-15-2024 pH (Body fld) 7.3 [pH] Not Estab. [facility] Body fluid polymorphonuclear leukocyte countOrdered By: Nikolas Magaña on 08-15-2024 Body fluid polymorphonuclear leukocyte count 0.002 10^3/uL [facility] Body fluid protein measureme nt (mass/volume)Ordered By: Nikolas Magaña on 08-15-2024 Protein (Body fld) [Mass/Vol] 1.9 g/dL Not Establ. [facility] Body fluid segmented neutrop hils count (number/volume)Ordered By: Nikolas Magaña on 08-15-2024 Segmented neutrophils (Body fld) [#/Vol] 4 % [facility] Body fluid segmented neutrophils count (number/volume) 4 % [facility] Body fluid total cell countO rdered By: Nikolas Magaña on 08-15-2024 Cells Counted Total (Body fld) [#] 0.024 10^3/ul High 0.000-0.00 0 [facility] CBC W/Diff, Automatedon 07-28 Anisocytosis Ql (Bld) 1+ Normal [facility] Comment on above: Performed By: #### L 500.4100, L501.9520, L503.7505, L100.0100 ####[facility] [address] [place], [place], [id number] Calculated very low density lipoprotein (VLDL) cholesterol measurementOrdered By: Nikolas Magaña on 08-15-2024 Calculated very low density lipoprotein (VLDL) cholesterol measurement 14 mg/dL 5-40 [facility] Calculated very low density lipoprotein (VLDL) cholesterol measurement 14 mg/dL -40 [facility] Cells Counted Total (Body fl d) [#]Ordered By: Nikolas Magaña on 08-15-2024 Body fluid total cell count 0.024 10^3/ul High 0.000-0.00 0 [facility] Chest Insp/Exp 2 Viewon 07-28 Chest Insp/Exp 2 View Normal [facility] Cholesterol [Mass/Vol]Ordere d By: Nikolas Magaña on 08-15-2024 Serum or plasma cholesterol measurement (mass/volume) 62 mg/dL <201 [facility] Cholesterol in HDL [Mass/Vol ]Ordered By: Nikolas Magaña on 08-15-2024 Serum or plasma cholesterol in HDL measurement (mass/volume) 25 mg/dL Low >40 [facility] Color (Body fld)Ordered By: Nikolas Magaña on 08-15-2024 Body fluid color determination LT YEL [facility] Consultation - Nephrologyon 08-15-2024 Consultation - Nephrology Normal [facility] Cytology report Cyto stain D oc (Body fld)Ordered By: Nikolas Magaña on 08-15-2024 Cytology report of Body fluid Cyto stain SEE PATHOLOGY REPORT [facility] Cytology report of Body flui d Cyto stainOrdered By: Nikolas Magaña on 08-15-2024 Cytology report Cyto stain Doc (Body fld) SEE PATHOLOGY REPORT [facility] Cytology, Body Fluid / CSFon 08-15-2024 CYTOLOGY,BF/CSF SEE PATHOLOGY REPORT Normal [facility] Comment on above: Result Comment: Spec imen submitted to Anatomical Pathology Department fortesting. Performed By: #### L 350.1000, L504.0250, L503.0300, L200.0200, L503.0100, M100.2900, M100.2000, M100.4001 ####[facility] [address] [place], [place], [id number] Echocardiogram study reportO rdered By: Tevin Nicholas on 08-15-2024 Study report [facility] Work Phone: Glucose, Body Fluidon 2024 GLUC, BODY FLD 111 mg/dL Normal Not Establ. [facility] Comment on above: Performed By: #### L 350.1000, L504.0250, L503.0300, L200.0200, L503.0100, M100.2900, M100.2000, M100.4001 ####[facility] [address] [place], [place], [id number] Glucose, body fluidOrdered B y: Nikolas Magaña on 08-15-2024 Glucose, body fluid 111 mg/dL Not Establ. [facility] Gram Stainon 08-15-2024 GS Centrifuged Specimen ? Culture performed on centrifuged specimen Gram Stain Rare White Blood Cells No organisms seen Normal [facility] Comment on above: Performed By: #### L 350.1000, L504.0250, L503.0300, L200.0200, L503.0100, M100.2900, M100.2000, M100.4001 ####[facility] [address] [place], [address] Gram stainOrdered By: Robb Magaña on 08-15-2024 Microscopic observation Gram stain Nom (Unsp spec) [facility] L503.7505on 08-15-2024 Natriuretic peptide B (Bld) [Mass/Vol] 73296 pg/mL High <=900 [facility] Comment on above: Result Comment: Hear t Failure Unlikely: < 300 pg/mLHeart Failure Likely< 50 Years: > 450 pg/mL50-75 Years: > 900 pg/mL>75 Years: > 1800 pg/mL Performed By: #### L 500.4100, L501.9520, L503.7505, L100.0100 ####[facility] [address] [place], [address] LDH Pyruvate to lactate reac tion (Body fld) [Catalytic activity/Vol]Ordered By: Nikolas Magaña on 08-15-2024 Body fluid lactate dehydrogenase measurement (enzymatic activity/volume) by pyruvate 51 Units/L Not Establ. [facility] LDH,Body Fluidon 08-15-2024 LDH,BF 51 Units/L Normal Not Establ. [facility] Comment on above: Performed By: #### L 350.1000, L504.0250, L503.0300, L200.0200, L503.0100, M100.2900, M100.2000, M100.4001 ####[facility] [address] [place], [address] LDL calc ser/plasOrdered By: Nikolas Magaña on 08-15-2024 Cholesterol in LDL [Mass/Vol] 23 mg/dL [facility] LDL calc ser/plas 23 mg/dL [facility] Lipid Profileon 08-15-2024 CHOL:HDL 2.48 Normal [facility] Comment on above: Performed By: #### L 500.4100, L501.9520, L503.7505, L100.0100 ####[facility] [address] [place], [address] Cholesterol [Mass/Vol] 62 mg/dL Normal <=200 [facility] Comment on above: Result Comment: Chol esterol level, Desirable <200 mg/dLBorderline high cholesterol 200-239 mg/dLHigh cholesterol >=240 mg/dLRecommendations of the NCEP Adult Treatment Panel for thefollowing risk-cutoff thresholds for the [place] [facility]. Performed By: #### L 500.4100, L501.9520, L503.7505, L100.0100 ####[facility] [address] [place], [address] Cholesterol in HDL [Mass/Vol] 25 mg/dL Low [facility] Comment on above: Result Comment: Lucila onal Cholesterol Education Program (NCEP) guidelines:<40 mg/dL: Low HDL-cholesterol (major risk factor for CHD)>= 60 mg/dL: High HDL-cholesterol (negative risk factor forCHD)HDL-cholesterol is affected by a number of factors, e.g.smoking, exercise, hormones, sex and age. Performed By: #### L 500.4100, L501.9520, L503.7505, L100.0100 ####[facility] [address] [place], [address] Cholesterol in LDL [Mass/Vol] 23 mg/dL Normal [facility] Comment on above: Result Comment: Bord rdqixv=851-723 mg/dL Higher Alsa=857 mg/dL or greater Performed By: #### L 500.4100, L501.9520, L503.7505, L100.0100 ####[facility] [address] [place], [address] Cholesterol in VLDL [Mass/Vol] 14 mg/dL Normal 5-40 [facility] Comment on above: Performed By: #### L 500.4100, L501.9520, L503.7505, L100.0100 ####[facility] [address] [place], [address] Triglyceride [Mass/Vol] 71 mg/dL Normal [facility] Comment on above: Result Comment: The drugs N-Acetylcysteine and Metamizole may falselydepress this assay.Normal range: <150 mg/dLBorderline High: 150-199 mg/dLHigh: 200-499 mg/dLVery High: >500 mg/dL Performed By: #### L 500.4100, L501.9520, L503.7505, L100.0100 ####[facility] [address] [place], [address] Lymphocytes/100 WBC (Body fl d)Ordered By: Nikolas Magaña on 08-15-2024 Body fluid lymphocytes/100 leukocytes 32 % [facility] Modified Barium Swallow Stud yon 08-15-2024 Modified Barium Swallow Study Normal [facility] Monocyte detectionOrdered By : Nikolas Magaña on 08-15-2024 Monocytes/100 WBC (Bld) 60 % [facility] Monocyte detection 60 % [facility] Mononuclear cells/100 WBC (B richie fld)Ordered By: Nikolas Magaña on 08-15-2024 Body fluid mononuclear cell percentage 91.3 % [facility] No Panel InformationOrdered By: Nikolas Magaña on 08-15-2024 6 /mm3 [facility] SEE COMMENT [facility] [address] pg/mL High <900 [facility] Operative Reporton Operative Report Normal [facility] Pathologist interpretation ( Body fld) [Interp]Ordered By: Nikolas Magaña on 08-15-2024 Pathologist interpretation of Body fluid tests May follow [facility] Pathologist interpretation o f Body fluid testsOrdered By: Nikolas Magaña on 08-15-2024 Pathologist interpretation (Body fld) [Interp] May follow [facility] Polymorphonuclear (PMN) leuk ocyte countOrdered By: Nikolas Magaña on 08-15-2024 Polymorphonuclear (PMN) leukocyte count 8.7 % [facility] Protein (Body fld) [Mass/Vol ]Ordered By: Nikolas Magaña on 08-15-2024 Body fluid protein measurement (mass/volume) 1.9 g/dL Not Establ. [facility] Protein, Body Fluidon 2024 Protein [Mass/Vol] 1.9 g/dL Normal Not Establ. [facility] Comment on above: Performed By: #### L 350.1000, L504.0250, L503.0300, L200.0200, L503.0100, M100.2900, M100.2000, M100.4001 ####[facility] [address] [place], [place], [id number] Screening total cholesterol/ high density lipoprotein (HDL) cholesterol ratioOrdered By: Nikolas Magaña on 08-15-2024 Screening total cholesterol/high density lipoprotein (HDL) cholesterol ratio 2.48 [facility] Serum or plasma cholesterol in HDL measurement (mass/volume)Ordered By: Nikolas Magaña on 08-15-2024 Cholesterol in HDL [Mass/Vol] 25 mg/dL Low >40 [facility] Serum or plasma cholesterol measurement (mass/volume)Ordered By: Nikolas Magaña on 08-15-2024 Cholesterol [Mass/Vol] 62 mg/dL <201 [facility] Special Stain Group IIon Special Stain Group II Normal [facility] Comment on above: Performed By: #### P SSII ####[facility] [address] [place], [address] Specimen source Nom (Body fl d)Ordered By: Nikolas Magaña on 08-15-2024 Specimen source identification of body fluid THORACENTESIS [facility] Specimen source identificati on of body fluidOrdered By: Nikolas Magaña on 08-15-2024 Specimen source Nom (Body fld) THORACENTESIS [facility] TSH DL <= 0.005 mIU/L QnOrde red By: Nikolas Magaña on 08-15-2024 TSH Qn 10.600 uIU/mL High 0.300-4.20 0 [facility] Serum or plasma thyroid stimulating hormone (TSH) measurement by high sensitivity met 10.600 uIU/mL High 0.300-4.20 0 [facility] Thyroid Stim Hormone (TSH)on 08-15-2024 TSH 10.600 uIU/mL High 0.300-4.20 0 [facility] Comment on above: Performed By: #### L 500.4100, L501.9520, L503.7505, L100.0100 ####[facility] [address] [place], [address] Triglycerides measurementOrd ered By: Nikolas Magaña on 08-15-2024 Triglycerides measurement 71 mg/dL <199 [facility] WBC (Body fld) [#/Vol]Ordere d By: Nikolas Magaña on 08-15-2024 Body fluid leukocytes count (number/volume) 0.023 10^3/uL [facility] pH (Body fld)Ordered By: Myke Magaña on 08-15-2024 Body fluid pH 7.3 Not Estab. [facility] 12 Lead EKGon 08-14-2024 12 Lead EKG Normal [facility] ALP [Catalytic activity/Vol] Ordered By: Ciaran Rodrigez on 08-14-2024 Serum or plasma alkaline phosphatase measurement 71 U/L 35-104 [facility] ALT [Catalytic activity/Vol] Ordered By: Ciaran Rodrigez on 08-14-2024 Serum or plasma alanine aminotransferase (ALT) measurement 9 U/L <35 [facility] Absolute neutrophil countOrd ered By: Ciaran Rodrigez on 08-14-2024 Absolute neutrophil count 7.1 X10^3/uL 2.0-7.7 [facility] Activated partial thrombopla stin time (aPTT) in platelet poor plasma by coagulation aOrdered By: Ciaran Rodrigez on 08-14-2024 aPTT Coag (PPP) [Time] 33.6 s 24.1-36.2 [facility] Albumin [Mass/Vol]Ordered By : Ciaran Rodrigez on 08-14-2024 Serum or plasma albumin measurement (mass/volume) 2.0 g/dL Low 3.4-4.8 [facility] Albumin/Globulin [Mass ratio ]Ordered By: Ciaran Rodrigez on 08-14-2024 Serum or plasma albumin/globulin mass ratio 0.6 RATIO Low 0.9-2.4 [facility] Anion gap [Moles/Vol]Ordered By: Ciaran Rodrigez on 08-14-2024 Anion gap in Serum or Plasma 9 - [facility] Anion gap [Moles/Vol]Ordered By: Millie Massey on 08-14-2024 Anion gap in Serum or Plasma 7 - [facility] Anion gap in Serum or Plasma Ordered By: Millie Massey on 08-14-2024 Anion gap [Moles/Vol] 7 mmol/L 10-[address] [facility] Arterial patency Wrist arter y --pre arterial punctureOrdered By: Ciaran Walsh on 08-14-2024 Assessment of wrist artery patency prior to arterial puncture Positive [facility] Assessment of wrist artery p atency prior to arterial punctureOrdered By: Ciaran Rodrigez on 08-14-2024 Arterial patency Wrist artery --pre arterial puncture Positive [facility] BUN/creatinine ratioOrdered By: Ciaran Rodrigez on 08-14-2024 BUN/creatinine ratio 29.1 RATIO High 10 [facility] BUN/creatinine ratioOrdered By: Millie Massey on 08-14-2024 Urea nitrogen/Creatinine [Mass ratio] 28.9 mg/mg High 03-17 [facility] BUN/creatinine ratio 28.9 RATIO High 03-17 [facility] Base excess Calc (BldV) [Mol es/Vol]Ordered By: Ciaran Rodrigez on 08-14-2024 Blood base excess determination -3 mmol/L Low -2-2 [facility] Basic Metabolic Profile (BMP )on 08-14-2024 BUN/CRE 28.9 RATIO High 10 [facility] Comment on above: Order Comment: 206 Performed By: #### L 500.4100, L100.4500, L506.1001, L500.2500, L501.9520, L100.0500, L501.5200, L503.0106 ####[facility] [address] [place], [address] Calcium [Mass/Vol] 7.8 mg/dL Normal 7.6-11.0 [facility] Comment on above: Order Comment: 206 Performed By: #### L 500.4100, L100.4500, L506.1001, L500.2500, L501.9520, L100.0500, L501.5200, L503.0106 ####[facility] [address] [place], [address] Chloride [Moles/Vol] 105 mmol/L Normal 98-108 [facility] Comment on above: Order Comment: 206 Performed By: #### L 500.4100, L100.4500, L506.1001, L500.2500, L501.9520, L100.0500, L501.5200, L503.0106 ####[facility] [address] [place], [address] CO2 [Moles/Vol] 19.9 mmol/L Low 21.0-32.0 [facility] Comment on above: Order Comment: 206 Performed By: #### L 500.4100, L100.4500, L506.1001, L500.2500, L501.9520, L100.0500, L501.5200, L503.0106 ####[facility] [address] [place], [address] Creatinine [Mass/Vol] 1.34 mg/dL High 0.70-1.[address] [facility] Comment on above: Order Comment: 206 Performed By: #### L 500.4100, L100.4500, L506.1001, L500.2500, L501.9520, L100.0500, L501.5200, L503.0106 ####[facility] [facility] [address] [place], [address] GAP 7 Normal 5-15 [facility] Comment on above: Order Comment: 206 Performed By: #### L 500.4100, L100.4500, L506.1001, L500.2500, L501.9520, L100.0500, L501.5200, L503.0106 ####[facility] [address] [place], [address] GFR/1.73 sq M.predicted among non-blacks MDRD (S/P/Bld) [Vol rate/Area] 45 mL/min/{1.73_m2} Low >60 [facility] Comment on above: Order Comment: 206 Result Comment: mL/m in/1.73m2 CKD-EPI Creatinine Equation (2020) Performed By: #### L 500.4100, L100.4500, L506.1001, L500.2500, L501.9520, L100.0500, L501.5200, L503.0106 ####[facility] [address] [place], [address] Glucose [Mass/Vol] 84 mg/dL Normal 70-99 [facility] Comment on above: Order Comment: 206 Performed By: #### L 500.4100, L100.4500, L506.1001, L500.2500, L501.9520, L100.0500, L501.5200, L503.0106 ####[facility] [address] [place], [address] Potassium [Moles/Vol] 5.3 mmol/L High 3.3-5.[address] [facility] Comment on above: Order Comment: 206 Result Comment: Hemo lysis present, Results??could be affected.?? Performed By: #### L 500.4100, L100.4500, L506.1001, L500.2500, L501.9520, L100.0500, L501.5200, L503.0106 ####[facility] [address] [place], [address] Sodium [Moles/Vol] 132 mmol/L Low 133-145 [facility] Comment on above: Order Comment: 206 Performed By: #### L 500.4100, L100.4500, L506.1001, L500.2500, L501.9520, L100.0500, L501.5200, L503.0106 ####[facility] [address] [place], [address] Urea nitrogen [Mass/Vol] 39 mg/dL High 4-19 [facility] Comment on above: Order Comment: 206 Performed By: #### L 500.4100, L100.4500, L506.1001, L500.2500, L501.9520, L100.0500, L501.5200, L503.0106 ####[facility] [address] [place], [address] BUN Normal 4-19 [facility] Comment on above: Result Comment: Canc elled via OM: Order cancelled - Patient discharged Performed By: #### L 500.2500, L100.0100 ####[facility] [address] [place], [address] BUN/CRE Normal 10-20 [facility] Comment on above: Result Comment: Canc elled via OM: Order cancelled - Patient discharged Performed By: #### L 500.2500, L100.0100 ####[facility] [address] [place], [address] Calcium Normal 7.6-11.0 [facility] Comment on above: Result Comment: Canc elled via OM: Order cancelled - Patient discharged Performed By: #### L 500.2500, L100.0100 ####[facility] [address] [place], [address] CL Normal 98-108 [facility] Comment on above: Result Comment: Canc elled via OM: Order cancelled - Patient discharged Performed By: #### L 500.2500, L100.0100 ####[facility] [address] [place], [address] CO2 Normal 21.0-32.0 [facility] Comment on above: Result Comment: Canc elled via OM: Order cancelled - Patient discharged Performed By: #### L 500.2500, L100.0100 ####[facility] [address] [place], [address] CREAT,SERUM Normal 0.70-1.20 [facility] Comment on above: Result Comment: Canc elled via OM: Order cancelled - Patient discharged Performed By: #### L 500.2500, L100.0100 ####[facility] [address] [place], [address] eGFR Normal >60 [facility] Comment on above: Result Comment: Canc elled via OM: Order cancelled - Patient discharged Performed By: #### L 500.2500, L100.0100 ####[facility] [address] [place], [address] GAP Normal 5-15 [facility] Comment on above: Result Comment: Canc elled via OM: Order cancelled - Patient discharged Performed By: #### L 500.2500, L100.0100 ####[facility] [address] [place], [address] GLU Normal 70-99 [facility] Comment on above: Result Comment: Canc elled via OM: Order cancelled - Patient discharged Performed By: #### L 500.2500, L100.0100 ####[facility] [address] [place], [address] Potassium Normal 3.3-5.1 [facility] Comment on above: Result Comment: Canc elled via OM: Order cancelled - Patient discharged Performed By: #### L 500.2500, L100.0100 ####[facility] [address] [place], [address] Basic Metabolic Profile (BMP) Normal 133-145 [facility] Comment on above: Result Comment: Canc elled via OM: Order cancelled - Patient discharged Performed By: #### L 500.2500, L100.0100 ####[facility] [address] [place], [address] Basophil percentageOrdered B y: Ciaran Rodrigez on 08-14-2024 Basophil percentage 0.6 % 0-1 [facility] Bedside Glucoseon 08-14-2024 FINGERSTICK GLU 137 mg/dL High 74-106 [facility] Comment on above: Result Comment: LUIZA DIAZ OF PATIENT CARE PER NURSING PROTOCOL Performed By: #### L 501.080 ####[facility] [address] [place], [address] Bilirubin Test strip Ql (U)O rdered By: Ciaran Rodrigez on 08-14-2024 Bilirubin Ql (U) Negative Negative [facility] Bilirubin, totalOrdered By: Ciaran Rodrigez on 08-14-2024 Bilirubin [Mass/Vol] 0.18 mg/dL 0.00-1.30 [facility] Bilirubin, total 0.18 mg/dL 0.00-1.30 [facility] Blood Gases by CPSon 025 LINDA TEST Positive Normal [facility] Comment on above: Performed By: #### L 9000.0800 ####[facility] [address] [place], [address] Base excess Calc (Bld) [Moles/Vol] -3 mmol/L Low -2 to +2 [facility] Comment on above: Performed By: #### L 9000.0800 ####[facility] [address] [place], [address] Blood Gas Type ART Normal [facility] Comment on above: Performed By: #### L 9000.0800 ####[facility] [address] [place], [address] CO2 [Moles/Vol] 23 mmol/L Normal [facility] Comment on above: Performed By: #### L 9000.0800 ####[facility] [address] [place], [address] FI02 44.0 Normal [facility] Comment on above: Performed By: #### L 9000.0800 ####[facility] [address] [place], [address] HCO3 (Bld) [Moles/Vol] 22.0 mmol/L Normal 22-26 [facility] Comment on above: Performed By: #### L 9000.0800 ####[facility] [address] [place], [address] Mode Not entered Normal [facility] Comment on above: Performed By: #### L 9000.0800 ####[facility] [address] [place], [address] O2 Delivery Dev Cannula Normal [facility] Comment on above: Performed By: #### L 9000.0800 ####[facility] [address] [place], [address] pCO2 39.1 mmHg Normal 35-45 [facility] Comment on above: Performed By: #### L 9000.0800 ####[facility] [address] [place], [address] pH (Bld) 7.36 [pH] Normal 7.35-7.45 [facility] Comment on above: Performed By: #### L 9000.0800 ####[facility] [address] [place], [address] PO2 105 mmHG High 75-100 [facility] Comment on above: Performed By: #### L 9000.0800 ####[facility] [address] [place], [address] SITE R Radial Normal [facility] Comment on above: Performed By: #### L 9000.0800 ####[facility] [address] [place], [address] SO2 98 Normal 95-99 [facility] Comment on above: Performed By: #### L 9000.0800 ####[facility] [address] [place], [address] Blood base excess determinat ionOrdered By: Ciaran Rodrigez on 08-14-2024 Base excess Calc (BldV) [Moles/Vol] -3 mmol/L Low -2-2 [facility] Blood bicarbonate measuremen tOrdered By: Ciaran Rodrigez on 08-14-2024 HCO3 (Bld) [Moles/Vol] 22.0 mmol/L [facility] Blood bicarbonate measurement 22.0 mmol/L [facility] Blood cultureOrdered By: Adelfo Rodrigez on 08-14-2024 Bacteria identified Cx Nom (Bld) No growth in 5 days. [facility] Blood culture No growth in 5 days. [facility] Bacteria identified Cx Nom (Bld) No growth in 5 days. [facility] Blood culture No growth in 5 days. [facility] Blood manual differential co mment interpretation (narrative result)Ordered By: Millie Massey on 08-14-2024 Manual differential comment Horace (Bld) [Interp] COMMENT [facility] Blood polychromasia detectio n by light microscopyOrdered By: Ciaran Walsh on 08-14-2024 Blood polychromasia detection by light microscopy RARE [facility] CBC W/Diff, Automatedon 07-27 Anisocytosis Ql (Bld) RARE Normal [facility] Comment on above: Performed By: #### L 500.4050, L100.0100 ####[facility] [address] [place], [address] POLYCHROMASIA RARE Normal [facility] Comment on above: Performed By: #### L 500.4050, L100.0100 ####[facility] [address] [place], [address] Absolute Neut Normal 2.0-7.7 [facility] Comment on above: Result Comment: Canc elled via OM: Order cancelled - Patient discharged Performed By: #### L 500.2500, L100.0100 ####[facility] [address] [place], [address] HCT Normal 37-47 [facility] Comment on above: Result Comment: Canc elled via OM: Order cancelled - Patient discharged Performed By: #### L 500.2500, L100.0100 ####[facility] [address] [place], [address] HGB Normal 12.0-15.0 [facility] Comment on above: Result Comment: Canc elled via OM: Order cancelled - Patient discharged Performed By: #### L 500.2500, L100.0100 ####[facility] [address] [place], [address] MCH Normal 27.0-32.0 [facility] Comment on above: Result Comment: Canc elled via OM: Order cancelled - Patient discharged Performed By: #### L 500.2500, L100.0100 ####[facility] [address], [address] MCHC Normal 32-36 [facility] Comment on above: Result Comment: Canc elled via OM: Order cancelled - Patient discharged Performed By: #### L 500.2500, L100.0100 ####[facility] [address] [place], [address] MCV Normal 81-99 [facility] Comment on above: Result Comment: Canc elled via OM: Order cancelled - Patient discharged Performed By: #### L 500.2500, L100.0100 ####[facility] [address], [address] NEUT% Normal 47-70 [facility] Comment on above: Result Comment: Canc elled via OM: Order cancelled - Patient discharged Performed By: #### L 500.2500, L100.0100 ####[facility] [address] [place], [address] PLT Normal 150-450 [facility] Comment on above: Result Comment: Canc elled via OM: Order cancelled - Patient discharged Performed By: #### L 500.2500, L100.0100 ####[facility] [address] [place], [address] RBC Normal 4.2-5.4 [facility] Comment on above: Result Comment: Canc elled via OM: Order cancelled - Patient discharged Performed By: #### L 500.2500, L100.0100 ####[facility] [address] [place], [address] RDW CV Normal 11.6-14.6 [facility] Comment on above: Result Comment: Canc elled via OM: Order cancelled - Patient discharged Performed By: #### L 500.2500, L100.0100 ####[facility] [address] [place], [address] RDW SD Normal 35.1-43.9 [facility] Comment on above: Result Comment: Canc elled via OM: Order cancelled - Patient discharged Performed By: #### L 500.2500, L100.0100 ####[facility] [address] [place], [address] WBC Normal 4.4-11.0 [facility] Comment on above: Result Comment: Canc elled via OM: Order cancelled - Patient discharged Performed By: #### L 500.2500, L100.0100 ####[facility] [address] [place], [address] CBC-Complete Blood Cnt No Di ffon 08-14-2024 Erythrocyte distribution width (RBC) [Ratio] 21.0 % High 11.6-14.6 [facility] Comment on above: Order Comment: 206 Performed By: #### L 500.4100, L100.4500, L506.1001, L500.2500, L501.9520, L100.0500, L501.5200, L503.0106 ####[facility] [address] [place], [place], [id number] Hematocrit (Bld) [Volume fraction] 30.9 % Low 37-47 [facility] Comment on above: Order Comment: 206 Performed By: #### L 500.4100, L100.4500, L506.1001, L500.2500, L501.9520, L100.0500, L501.5200, L503.0106 ####[facility] [address] [place], [place], [address] Hemoglobin (Bld) [Mass/Vol] 9.2 g/dL Low 12.0-15.0 [facility] Comment on above: Order Comment: 206 Performed By: #### L 500.4100, L100.4500, L506.1001, L500.2500, L501.9520, L100.0500, L501.5200, L503.0106 ####[facility] [address] [place], [address] MCH (RBC) [Entitic mass] 27.6 pg Normal 27.0-32.0 [facility] Comment on above: Order Comment: 206 Performed By: #### L 500.4100, L100.4500, L506.1001, L500.2500, L501.9520, L100.0500, L501.5200, L503.0106 ####[facility] [address] [place], [address] MCHC (RBC) [Mass/Vol] 29.8 g/dL Low 32-[address] [facility] Comment on above: Order Comment: 206 Performed By: #### L 500.4100, L100.4500, L506.1001, L500.2500, L501.9520, L100.0500, L501.5200, L503.0106 ####[facility] [address] [place], [address] MCV (RBC) [Entitic vol] 92.8 fL Normal 81-99 [facility] Comment on above: Order Comment: 206 Performed By: #### L 500.4100, L100.4500, L506.1001, L500.2500, L501.9520, L100.0500, L501.5200, L503.0106 ####[facility] [address] [place], [address] Platelet mean volume (Bld) [Entitic vol] 10.8 fL Normal 6.2-12.0 [facility] Comment on above: Order Comment: 206 Performed By: #### L 500.4100, L100.4500, L506.1001, L500.2500, L501.9520, L100.0500, L501.5200, L503.0106 ####[facility] [address] [place], [address] Platelets (Bld) [#/Vol] 137 10*3/uL Low 150-450 [facility] Comment on above: Order Comment: 206 Performed By: #### L 500.4100, L100.4500, L506.1001, L500.2500, L501.9520, L100.0500, L501.5200, L503.0106 ####[facility] [address] [place], [address] RBC (Bld) [#/Vol] 3.33 10*6/uL Low 4.2-5.4 [facility] Comment on above: Order Comment: 206 Performed By: #### L 500.4100, L100.4500, L506.1001, L500.2500, L501.9520, L100.0500, L501.5200, L503.0106 ####[facility] [address] [place], [place], [address]) RDW SD 69.6 fl High 35.1-43.9 [facility] Comment on above: Order Comment: 206 Performed By: #### L 500.4100, L100.4500, L506.1001, L500.2500, L501.9520, L100.0500, L501.5200, L503.0106 ####[facility] [address] [place], [place], [address](230) WBC (Bld) [#/Vol] 4.1 10*3/uL Low 4.4-11.0 [facility] Comment on above: Order Comment: 206 Performed By: #### L 500.4100, L100.4500, L506.1001, L500.2500, L501.9520, L100.0500, L501.5200, L503.0106 ####[facility] [address] [place], [place], [address] Calcium [Mass/Vol]Ordered By : Ciaran Rodrigez on 08-14-2024 Serum or plasma calcium measurement (mass/volume) 7.8 mg/dL 7.6-11.0 [facility] Calcium [Mass/Vol]Ordered By : Millie Massey on 08-14-2024 Serum or plasma calcium measurement (mass/volume) 7.8 mg/dL 7.6-11.0 [facility] Calcium oxalate crystals LM Ql (Urine sed)Ordered By: Ciaran Rodrigez on 08-14-2024 Calcium oxalate crystals detection in urine sediment by light microscopy 1+ /hpf [facility] Calcium oxalate crystals det ection in urine sediment by light microscopyOrdered By: Ciaran Rodrigez on 08-14-2024 Calcium oxalate crystals LM Ql (Urine sed) 1+ /hpf [facility] Calculated very low density lipoprotein (VLDL) cholesterol measurementOrdered By: Millie Massey on 08-14-2024 Calculated very low density lipoprotein (VLDL) cholesterol measurement 9 mg/dL 5-40 [facility] Calculated very low density lipoprotein (VLDL) cholesterol measurement 9 mg/dL 5-40 [facility] Carbon dioxide, total [Moles /volume] in Central venous bloodOrdered By: Ciaran Rodrigez on 08-14-2024 Carbon dioxide, total [Moles/volume] in Central venous blood 19.2 mmol/L Low 21.0-32.0 [facility] Carbon dioxide, total [Moles /volume] in Central venous bloodOrdered By: Millie Massey on 08-14-2024 CO2 [Moles/Vol] 19.9 mmol/L Low 21.0-32.0 [facility] Carbon dioxide, total [Moles/volume] in Central venous blood 19.9 mmol/L Low 21.0-32.0 [facility] Chest 1 View (Portable)on Chest 1 View (Portable) Normal [facility] Chloride assayOrdered By: Dakota Rodrigez on 08-14-2024 Chloride assay 104 mmol/L 98-108 [facility] Chloride assayOrdered By: Carter Massey on 08-14-2024 Chloride [Moles/Vol] 105 mmol/L 98-108 [facility] Chloride assay 105 mmol/L 98-108 [facility] Cholesterol [Mass/Vol]Ordere d By: Millie Massey on 08-14-2024 Serum or plasma cholesterol measurement (mass/volume) 72 mg/dL <201 [facility] Cholesterol in HDL [Mass/Vol ]Ordered By: Millie Massey on 08-14-2024 Serum or plasma cholesterol in HDL measurement (mass/volume) 27 mg/dL Low >40 [facility] Clarity (U)Ordered By: Ciaran Rodrigez on 08-14-2024 Urine clarity Sl. Cloudy Clear [facility] Cobalamin (Vitamin B12) [Mas s/Vol]Ordered By: Millie Massey on 08-14-2024 Vitamin B12 ser/plas 599 pg/mL 180-914 [facility] Color (U)Ordered By: Ciaran Singh on 08-14-2024 Urine color determination Yellow Yellow [facility] Comprehensive Metabolic Prof ilon 08-14-2024 Albumin [Mass/Vol] 2.0 g/dL Low 3.4-4.8 [facility] Comment on above: Performed By: #### L 500.4050, L100.0100 ####[facility] [address] [place], [address] Albumin/Globulin [Mass ratio] 0.6 {ratio} Low 0.9-2.4 [facility] Comment on above: Performed By: #### L 500.4050, L100.0100 ####[facility] [address] [place], [address] ALK PHOS 71 U/L Normal 35-104 [facility] Comment on above: Performed By: #### L 500.4050, L100.0100 ####[facility] [address] [place], [address] ALT [Catalytic activity/Vol] 9 U/L Normal <=34 [facility] Comment on above: Performed By: #### L 500.4050, L100.0100 ####[facility] [address] [place], [address] AST [Catalytic activity/Vol] 29 U/L Normal <=31 [facility] Comment on above: Result Comment: Hemo lysis present, Results??could be affected.?? Performed By: #### L 500.4050, L100.0100 ####[facility] [address] [place], [address] Bilirubin [Mass/Vol] 0.18 mg/dL Normal 0.00-1.30 [facility] Comment on above: Performed By: #### L 500.4050, L100.0100 ####[facility] [address] [place], [address] BUN/CRE 29.1 RATIO High 10-20 [facility] Comment on above: Performed By: #### L 500.4050, L100.0100 ####[facility] [address] [place], [address] Calcium [Mass/Vol] 7.8 mg/dL Normal 7.6-11.0 [facility] Comment on above: Performed By: #### L 500.4050, L100.0100 ####[facility] [address] [place], [address] Chloride [Moles/Vol] 104 mmol/L Normal 98-108 [facility] Comment on above: Performed By: #### L 500.4050, L100.0100 ####[facility] [address] [place], [address] CO2 [Moles/Vol] 19.2 mmol/L Low 21.0-32.0 [facility] Comment on above: Performed By: #### L 500.4050, L100.0100 ####[facility] [address] [place], [address] Creatinine [Mass/Vol] 1.34 mg/dL High 0.70-1.[address] [facility] Comment on above: Performed By: #### L 500.4050, L100.0100 ####[facility] [address] [place], [address] ECRCL 38.48 ml/min Low 50-250 [facility] Comment on above: Performed By: #### L 500.4050, L100.0100 ####[facility] [address] [place], [address] GAP 9 Normal 5-15 [facility] Comment on above: Performed By: #### L 500.4050, L100.0100 ####[facility] [address] [place], [address] GFR/1.73 sq M.predicted among non-blacks MDRD (S/P/Bld) [Vol rate/Area] 45 mL/min/{1.73_m2} Low >60 [facility] Comment on above: Result Comment: mL/m in/1.73m2 CKD-EPI Creatinine Equation (2020) Performed By: #### L 500.4050, L100.0100 ####[facility] [address] [place], [address] Globulin (S) [Mass/Vol] 3.4 g/dL Normal 2.2-4.2 [facility] Comment on above: Performed By: #### L 500.4050, L100.0100 ####[facility] [address] [place], [address] Glucose [Mass/Vol] 85 mg/dL Normal 70-99 [facility] Comment on above: Performed By: #### L 500.4050, L100.0100 ####[facility] [address] [place], [address] Potassium [Moles/Vol] 5.4 mmol/L High 3.3-5.[address] [facility] Comment on above: Result Comment: Hemo lysis present, Results??could be affected.?? Performed By: #### L 500.4050, L100.0100 ####[facility] [address] [place], [address] Sodium [Moles/Vol] 131 mmol/L Low 133-145 [facility] Comment on above: Performed By: #### L 500.4050, L100.0100 ####[facility] [address] [place], [address] T PROT 5.5 g/dL Low 5.9-8.4 [facility] Comment on above: Performed By: #### L 500.4050, L100.0100 ####[facility] [address] [place], [address] Urea nitrogen [Mass/Vol] 39 mg/dL High -19 [facility] Comment on above: Performed By: #### L 500.4050, L100.0100 ####[facility] [address] [place], [address] Creatinine [Mass/Vol]Ordered By: Ciaran Rodrigez on 08-14-2024 Serum creatinine measurement (mass/volume) 1.34 mg/dL High 0.70-1.20 [facility] Creatinine [Mass/Vol]Ordered By: Millie Massey on 08-14-2024 Serum creatinine measurement (mass/volume) 1.34 mg/dL High 0.70-1.20 [facility] Determination of fraction of inspired oxygenOrdered By: Ciaran Rodrigez on 08-14-2024 Determination of fraction of inspired oxygen 44.0 [facility] Dialysis Vein Map PRE-OP LEXIE ATon 08-14-2024 Dialysis Vein Map PRE-OP BILAT Normal [facility] Differential Commenton 08-14 SMEAR COMMENT COMMENT Normal [facility] Comment on above: Order Comment: 206 Result Comment: 1+ A NISO. Performed By: #### L 500.4100, L100.4500, L506.1001, L500.2500, L501.9520, L100.0500, L501.5200, L503.0106 ####[facility] [address] [place], [address] Echo Completeon 08-14-2024 Echo Complete Normal [facility] Emergency Department Summary on 08-14-2024 Emergency Department Summary Normal [facility] Eosinophil percentageOrdered By: Ciaran Rodrigez on 08-14-2024 Eosinophil percentage 1.9 % 0-[address] [facility] Erythrocyte distribution wid th (RBC) [Entitic vol]Ordered By: Ciaran Walsh on 08-14-2024 Erythrocyte distribution width standard deviation 70.0 fl High 35.1-43.9 [facility] Erythrocyte distribution wid th (RBC) [Ratio]Ordered By: Ciaran Rodrigez on 08-14-2024 Erythrocyte distribution width ratio 21.0 % High 11.6-14.6 [facility] Erythrocyte distribution wid th (RBC) [Ratio]Ordered By: Millie Massey on 08-14-2024 Erythrocyte distribution width ratio 21.0 % High 11.6-14.6 [facility] Erythrocyte distribution wid th ratioOrdered By: Millie Massey on 08-14-2024 Erythrocyte distribution width (RBC) [Ratio] 21.0 % High 11.6-14.6 [facility] Erythrocyte distribution wid th standard deviationOrdered By: Millie Massey on 08-14-2024 Erythrocyte distribution width (RBC) [Ratio] 69.6 fl High 35.1-43.9 [facility] Erythrocyte distribution width standard deviation 69.6 fl High 35.1-43.9 [facility] Estimation of creatinine austen aranceOrdered By: Ciaran Rodrigez on 08-14-2024 Estimation of creatinine clearance 38.48 ml/min Low 50-250 [facility] GFR/1.73 sq M.predicted víctor g non-blacks MDRD (S/P/Bld) [Vol rate/Area]Ordered By: Ciaran Rodrigez on 08-14-2024 Glomerular filtration rate (GFR) estimation/1.73 sq m using serum, plasma, or whole b 45 Low >60 [facility] GFR/1.73 sq M.predicted víctor g non-blacks MDRD (S/P/Bld) [Vol rate/Area]Ordered By: Millie Massey on 08-14-2024 Glomerular filtration rate (GFR) estimation/1.73 sq m using serum, plasma, or whole b 45 Low >60 [facility] Glomerular filtration rate ( GFR) estimation/1.73 sq m using serum, plasma, or whole bOrdered By: Millie Massey on 08-14-2024 GFR/1.73 sq M.predicted among non-blacks MDRD (S/P/Bld) [Vol rate/Area] 45 mL/min/{1.73_m2} Low >60 [facility] Glucoseon 08-14-2024 Glucose [Mass/Vol] 79 mg/dL Normal 70-99 [facility] Comment on above: Performed By: #### L 501.0100 ####[facility] [address] [place], [address] Glucose [Mass/Vol]Ordered By : Ciaran Rodrigez on 08-14-2024 Serum glucose measurement (mass/volume) 85 mg/dL - [facility] Glucose [Mass/Vol]Ordered By : Millie Massey on 08-14-2024 Serum glucose measurement (mass/volume) 84 mg/dL [facility] H AND P Exam - Hospitaliston 08-14-2024 H&P Exam - Hospitalist Normal [facility] Hematocrit Auto (Bld) [Volum e fraction]Ordered By: Ciaran Rodrigez on 08-14-2024 Automated blood hematocrit (percentage) 29.0 % Low 37-47 [facility] Hematocrit Auto (Bld) [Volum e fraction]Ordered By: Millie Massey on 08-14-2024 Hematocrit (Bld) [Volume fraction] 30.9 % Low 37- [facility] Automated blood hematocrit (percentage) 30.9 % Low 37-47 [facility] Hemoglobin measurementOrdere d By: Ciaran Rodrigez on 08-14-2024 Hemoglobin measurement 8.7 g/dL Low 12.0-15.0 [facility] Hemoglobin measurementOrdere d By: Millie Massey on 08-14-2024 Hemoglobin (Bld) [Mass/Vol] 9.2 g/dL Low 12.0-15.0 [facility] Hemoglobin measurement 9.2 g/dL Low 12.0-15.0 [facility] Immature granulocytes/100 WB C Auto (Bld)Ordered By: Ciaran Rodrigez on 08-14-2024 Automated immature granulocyte percentage 3.300 % High 0.0-0.9 [facility] Influenza virus A and B and SARS-CoV-2 (COVID-19) and Respiratory syncytial virus RNAOrdered By: Ciaran RosarioSuraj on 08-14-2024 SARS-CoV-2 (COVID-19) RNA MOISES+probe Ql (Unsp spec) [facility] International normalized rat io (INR) calculationOrdered By: Ciaran RosarioSuraj on 08-14-2024 International normalized ratio (INR) calculation 1.1 [facility] Ketones Test strip Ql (U)Ord ered By: [facility] on 08-14-2024 Ketones Ql (U) Negative Negative [facility] L499.0042on 08-14-2024 Trop T High Sen 221 ng/L Invalid Interpretation Code <=14 [facility] Comment on above: Result Comment: Crit ical Result(s) Called at 1058: TO HORR by:KCLAPPER??Results read back by same. Performed By: #### L 499.0042 ####[facility] [address] [place], [address] L501.4021on 08-14-2024 Trop T High Sen 224 ng/L Invalid Interpretation Code <=14 [facility] Comment on above: Result Comment: Crit ical Result(s) Called at 0906: TO CDANTEL by:KCLAPPER??Results read back by same. Performed By: #### M 200.1000, L503.6005, L501.4021 ####[facility] [address] [place], [address] L503.0106on 08-14-2024 Cobalamin (Vitamin B12) [Mass/Vol] 599 pg/mL Normal 180-914 [facility] Comment on above: Order Comment: 206 Performed By: #### L 500.4100, L100.4500, L506.1001, L500.2500, L501.9520, L100.0500, L501.5200, L503.0106 ####[facility] [address] [place], [address] L506.1001on 08-14-2024 Vitamin D 25-OH 26.7 ng/mL Low 30-100 [facility] Comment on above: Order Comment: 206 Result Comment: Kelly min D StatusDeficiency: <20 ng/mL (50nmol/L)Insufficiency: 20-30 ng/mL (50-75 nmol/L)Sufficiency: 30-100 ng/mL (75-250 nmol/L)Toxicity: >100 ng/mL (>250 nmol/L) Performed By: #### L 500.4100, L100.4500, L506.1001, L500.2500, L501.9520, L100.0500, L501.5200, L503.0106 ####[facility] [address] [place], [address] LDHon 08-14-2024 LDH 239 U/L Normal 84-246 [facility] Comment on above: Order Comment: 1 Result Comment: Hemo lysis present, Results??could be affected.?? Performed By: #### L 504.2610, L001.0705 ####[facility] [address] [facility] [place], [address] LDL calc ser/plasOrdered By: Millie Massey on 08-14-2024 Cholesterol in LDL [Mass/Vol] 36 mg/dL [facility] LDL calc ser/plas 36 mg/dL [facility] Lactate dehydrogenase (LDH) measurementOrdered By: Nikolas Magaña on 08-14-2024 Lactate dehydrogenase (LDH) measurement 239 U/L 84-246 [facility] Lactic Acidon 08-14-2024 Lactate [Moles/Vol] 3.1 mmol/L Invalid Interpretation Code 0.0-2.0 [facility] Comment on above: Order Comment: Y Result Comment: Crit ical Result(s) Called at 0906: TO CDANTEL by:KCLAPPER??Results read back by same. Performed By: #### M 200.1000, L503.6005, L501.4021 ####[facility] [address] [place], [address] Lactic acid measurementOrder ed By: Ciaran Rodrigez on 08-14-2024 Lactic acid measurement 3.1 mmol/L High 0.0-2.0 [facility] Leukocyte esterase Test stri p Ql (U)Ordered By: Ciaran Rodrigez on 08-14-2024 Urine leukocyte esterase detection by dipstick 500 /ul High Negative [facility] Lipid Profileon 08-14-2024 CHOL:HDL 2.71 Normal [facility] Comment on above: Order Comment: 206 Performed By: #### L 500.4100, L100.4500, L506.1001, L500.2500, L501.9520, L100.0500, L501.5200, L503.0106 ####[facility] [address] [place], [address] Cholesterol [Mass/Vol] 72 mg/dL Normal <=200 [facility] Comment on above: Order Comment: 206 Result Comment: Chol esterol level, Desirable <200 mg/dLBorderline high cholesterol 200-239 mg/dLHigh cholesterol >=240 mg/dLRecommendations of the NCEP Adult Treatment Panel for thefollowing risk-cutoff thresholds for the [place] Americanpulation. Performed By: #### L 500.4100, L100.4500, L506.1001, L500.2500, L501.9520, L100.0500, L501.5200, L503.0106 ####[facility] [address] [place], [place], [phone] Cholesterol in HDL [Mass/Vol] 27 mg/dL Low [facility] Comment on above: Order Comment: 206 Result Comment: Lucila onal Cholesterol Education Program (NCEP) guidelines:<40 mg/dL: Low HDL-cholesterol (major risk factor for CHD)>= 60 mg/dL: High HDL-cholesterol (negative risk factor forCHD)HDL-cholesterol is affected by a number of factors, e.g.smoking, exercise, hormones, sex and age. Performed By: #### L 500.4100, L100.4500, L506.1001, L500.2500, L501.9520, L100.0500, L501.5200, L503.0106 ####[facility] [address] [place], [address] Cholesterol in LDL [Mass/Vol] 36 mg/dL Normal [facility] Comment on above: Order Comment: 206 Result Comment: Bord ufihry=753-186 mg/dL Higher Diob=879 mg/dL or greater Performed By: #### L 500.4100, L100.4500, L506.1001, L500.2500, L501.9520, L100.0500, L501.5200, L503.0106 ####[facility] [address] [place], [address] Cholesterol in VLDL [Mass/Vol] 9 mg/dL Normal 5-40 [facility] Comment on above: Order Comment: 206 Performed By: #### L 500.4100, L100.4500, L506.1001, L500.2500, L501.9520, L100.0500, L501.5200, L503.0106 ####[facility] [address] [place], [address] Triglyceride [Mass/Vol] 46 mg/dL Normal [facility] Comment on above: Order Comment: 206 Result Comment: The drugs N-Acetylcysteine and Metamizole may falselydepress this assay.Normal range: <150 mg/dLBorderline High: 150-199 mg/dLHigh: 200-499 mg/dLVery High: >500 mg/dL Performed By: #### L 500.4100, L100.4500, L506.1001, L500.2500, L501.9520, L100.0500, L501.5200, L503.0106 ####[facility] [address] [place], [place], [id number] Lymphocytes Auto (Unsp spec) [#/Vol]Ordered By: Ciaran Rodrigez on 08-14-2024 Absolute lymphocyte count 0.77 X10^3/uL Low 0.83-4.51 [facility] Lymphocytes/100 WBC Auto (Un sp spec)Ordered By: Ciaran Rodrigez on 08-14-2024 Automated lymphocyte count as percentage of total leukocytes 8.6 % Low 19-41 [facility] M100.678on 08-14-2024 M100.678 Pending SARS-CoV-2 (COVID 19) Negative INFLUENZA A Negative INFLUENZA B Negative RSV PCR Negative Normal [facility] Comment on above: Performed By: #### M 100.678 ####[facility] [address] [facility] [place], [address] MCV (RBC) [Entitic vol]Order ed By: Ciaran Rodrigez on 08-14-2024 MCV (mean corpuscular volume) determination 93.9 fL 81-99 [facility] MCV (RBC) [Entitic vol]Order ed By: Millie Massey on 08-14-2024 MCV (mean corpuscular volume) determination 92.8 fL 81-99 [facility] MCV (mean corpuscular volume ) determinationOrdered By: Millie Massey on 08-14-2024 MCV (RBC) [Entitic vol] 92.8 fL 81-99 [facility] Magnesiumon 08-14-2024 Magnesium [Mass/Vol] 1.4 mg/dL Low 1.5-2.2 [facility] Comment on above: Performed By: #### L 501.2300, L501.5200 ####[facility] [address] [place], [place], [id number] Magnesium [Mass/Vol] 1.5 mg/dL Normal 1.5-2.2 [facility] Comment on above: Order Comment: 206 Performed By: #### L 500.4100, L100.4500, L506.1001, L500.2500, L501.9520, L100.0500, L501.5200, L503.0106 ####[facility] [address] [place], [address] Magnesium (Unsp spec) [Mass/ Vol]Ordered By: Nikolas Magaña on 08-14-2024 Magnesium measurement (mass/volume) 1.4 mg/dL Low 1.5-2.2 [facility] Magnesium (Unsp spec) [Mass/ Vol]Ordered By: Millie Massey on 08-14-2024 Magnesium measurement (mass/volume) 1.5 mg/dL 1.5-2.2 [facility] Magnesium measurement (mass/ volume)Ordered By: Nikolas Magaña on 08-14-2024 Magnesium (Unsp spec) [Mass/Vol] 1.4 mg/dL Low 1.5-2.2 [facility] Magnesium measurement (mass/ volume)Ordered By: Millie Massey on 08-14-2024 Magnesium (Unsp spec) [Mass/Vol] 1.5 mg/dL 1.5-2.2 [facility] Manual differential comment Horace (Bld) [Interp]Ordered By: Millie Massey on 08-14-2024 Blood manual differential comment interpretation (narrative result) COMMENT [facility] Mean corpuscular hemoglobin (MCH) determinationOrdered By: Ciaran Rodrigez on 08-14-2024 Mean corpuscular hemoglobin (MCH) determination 28.2 pg 27.0-32.0 [facility] Mean corpuscular hemoglobin (MCH) determinationOrdered By: Millie Massey on 08-14-2024 MCH (RBC) [Entitic mass] 27.6 pg 27.0-32.0 [facility] Mean corpuscular hemoglobin (MCH) determination 27.6 pg 27.0-32.0 [facility] Mean corpuscular hemoglobin concentration (MCHC) determinationOrdered By: Ciaran Rodrigez on 08-14-2024 Mean corpuscular hemoglobin concentration (MCHC) determination 30.0 g/dL Low 32-36 [facility] Mean corpuscular hemoglobin concentration (MCHC) determinationOrdered By: Millie Massey on 08-14-2024 Mean corpuscular hemoglobin concentration (MCHC) determination 29.8 g/dL Low 32-36 [facility] Mean platelet volume determi nationOrdered By: Ciaran Rodrigez on 08-14-2024 Mean platelet volume determination 10.2 fl 6.2-12.0 [facility] Mean platelet volume determi nationOrdered By: Millie Massey on 08-14-2024 Mean platelet volume determination 10.8 fl 6.2-12.0 [facility] Measurement, pHOrdered By: Vika Rodrigez on 08-14-2024 pH (Unsp spec) 7.36 [pH] 7.35-7.45 [facility] Microscopic analysis of urin e for red blood cells (RBC)Ordered By: Ciaran Rodrigez on 08-14-2024 Microscopic analysis of urine for red blood cells (RBC) 0-5 SEEN /hpf 5-10 [facility] Monocyte percentageOrdered B y: Ciaran Rodrigez on 08-14-2024 Monocyte percentage 6.1 % 0-10 [facility] Mucus LM Ql (Urine sed)Order ed By: Ciaran Rodrigez on 08-14-2024 Mucus Ql (Urine sed) 0 SEEN /hpf [facility] Neutrophil percentageOrdered By: Ciaran Rodrigez on 08-14-2024 Neutrophil percentage 79.5 % High 47-[address] [facility] Nitrite Test strip Ql (U)Ord ered By: Ciaran Rodrigez on 08-14-2024 Nitrite Ql (U) Negative Negative [facility] No Panel InformationOrdered By: Ciaran Rodrigez on 08-14-2024 ART [facility] R Radial [facility] Not entered [facility] Cannula [facility] 224 ng/L High <14 [facility] 29 U/L <32 [facility] Nucleated red blood cell per centageOrdered By: Ciaran Rodrigez on 08-14-2024 Nucleated red blood cell percentage 0 % 0-5 [facility] Oxygen saturation measuremen tOrdered By: Ciaran Rodrigez on 08-14-2024 Oxygen saturation measurement 98 % 95-99 [facility] Partial Thromboplast Timeon 08-14-2024 aPTT Coag (Bld) [Time] 33.6 s Normal 24.1-36.2 [facility] Comment on above: Performed By: #### L 300.3900, L300.4310 ####[facility] [address] [place], [place], [id number] Partial pressure of carbon d ioxide measurementOrdered By: Ciaran Rodrigez on 08-14-2024 Partial pressure of carbon dioxide measurement 39.1 mmHg 35-45 [facility] Partial pressure of oxygen m easurementOrdered By: Ciaran Rodrigez on 08-14-2024 Partial pressure of oxygen measurement 105 mmHG High 75-100 [facility] Phosphoruson 08-14-2024 Phosphate [Mass/Vol] 3.0 mg/dL Normal 2.7-4.5 [facility] Comment on above: Performed By: #### L 501.2300, L501.5200 ####[facility] [address] [place], [place], [id number] Platelet countOrdered By: Dakota Rodrigez on 08-14-2024 Platelet count 147 K/mm3 Low 150-450 [facility] Platelet countOrdered By: Carter Massey on 08-14-2024 Platelets (Bld) [#/Vol] 137 10*3/uL Low 150-450 [facility] Platelet count 137 K/mm3 Low 150-450 [facility] Potassium (Unsp spec) [Mass/ Vol]Ordered By: Ciaran Rodrigez on 08-14-2024 Potassium measurement (mass/volume) 5.4 mmol/L High 3.3-5.1 [facility] Potassium (Unsp spec) [Mass/ Vol]Ordered By: Millie Massey on 08-14-2024 Potassium measurement (mass/volume) 5.3 mmol/L High 3.3-5.1 [facility] Potassium measurement (mass/ volume)Ordered By: Millie Massey on 08-14-2024 Potassium (Unsp spec) [Mass/Vol] 5.3 mmol/L High 3.3-5.1 [facility] Protein Test strip Ql (U)Ord ered By: [facility] 08-14-2024 Protein Ql (U) 30 mg/dl High Negative [facility] Urine protein assay by test strip, semi-quantitative 30 mg/dl High Negative [facility] Protein, Totalon 08-14-2024 T PROT 5.4 g/dL Low 5.9-8.4 [facility] Comment on above: Performed By: #### L 504.2610, L001.0705 ####[facility] [address] [place], [address] Prothrombin Time w/INRon INR Coag (PPP) [Relative time] 1.1 {INR} Normal [facility] Comment on above: Performed By: #### L 300.3900, L300.4310 ####[facility] [address] [place], [address] PT Coag (PPP) [Time] 14.6 s Normal 11.7-14.9 [facility] Comment on above: Performed By: #### L 300.3900, L300.4310 ####[facility] [address] [place], [address] Prothrombin timeOrdered By: Ciaran [email or web address] on 08-14-2024 PT Coag (PPP) [Time] 14.6 s 11.7-14.9 [facility] Prothrombin time 14.6 SECONDS 11.7-14.9 [facility] RBC Auto (Bld) [#/Vol]Ordere d By: Ciaran Rodrigez on 08-14-2024 Automated blood erythrocyte count 3.09 M/mm3 Low 4.2-5.4 [facility] RBC Auto (Bld) [#/Vol]Ordere d By: Millie Massey on 08-14-2024 RBC (Bld) [#/Vol] 3.33 10*6/uL Low 4.2-5.4 [facility] Automated blood erythrocyte count 3.33 M/mm3 Low 4.2-5.4 [facility] Screening total cholesterol/ high density lipoprotein (HDL) cholesterol ratioOrdered By: Millie Massey on 08-14-2024 Screening total cholesterol/high density lipoprotein (HDL) cholesterol ratio 2.71 [facility] Serum creatinine measurement (mass/volume)Ordered By: Millie Massey on 08-14-2024 Creatinine [Mass/Vol] 1.34 mg/dL High 0.70-1.[address] [facility] Serum globulin measurementOr dered By: Ciaran Rodrigez on 08-14-2024 Globulin (S) [Mass/Vol] 3.4 g/dL 2.2-4.2 [facility] Serum globulin measurement 3.4 g/dL 2.2-4.2 [facility] Serum glucose measurement (m ass/volume)Ordered By: Millie Massey on 08-14-2024 Glucose [Mass/Vol] 84 mg/dL 70-99 [facility] Serum or plasma alanine camargo otransferase (ALT) measurementOrdered By: Ciaran Rodrigez on 08-14-2024 ALT [Catalytic activity/Vol] 9 U/L <35 [facility] Serum or plasma albumin megan urement (mass/volume)Ordered By: Ciaran Walsh on 08-14-2024 Albumin [Mass/Vol] 2.0 g/dL Low 3.4-4.8 [facility] Serum or plasma albumin/glob ulin mass ratioOrdered By: Ciaran Rodrigez on 08-14-2024 Albumin/Globulin [Mass ratio] 0.6 {ratio} Low 0.9-2.4 [facility] Serum or plasma alkaline susan sphatase measurementOrdered By: Ciaran Rodrigez on 08-14-2024 ALP [Catalytic activity/Vol] 71 U/L 35-104 [facility] Serum or plasma calcium megan urement (mass/volume)Ordered By: Millie Massey on 08-14-2024 Calcium [Mass/Vol] 7.8 mg/dL 7.6-11.0 [facility] Serum or plasma cholesterol in HDL measurement (mass/volume)Ordered By: Millie Massey on 08-14-2024 Cholesterol in HDL [Mass/Vol] 27 mg/dL Low >40 [facility] Serum or plasma cholesterol measurement (mass/volume)Ordered By: Millie Massey on 08-14-2024 Cholesterol [Mass/Vol] 72 mg/dL <201 [facility] Serum or plasma urea nitroge n measurement (mass/volume)Ordered By: Millie Massey on 08-14-2024 Urea nitrogen [Mass/Vol] 39 mg/dL High 4-19 [facility] Serum phosphorus measurement Ordered By: Nikolas Magaña on 08-14-2024 Serum phosphorus measurement 3.0 mg/dL 2.7-4.5 [facility] Sodium levelOrdered By: Ward Rodrigez on 08-14-2024 Sodium level 131 mmol/L Low 133-145 [facility] Sodium levelOrdered By: Silvana Massey on 08-14-2024 Sodium [Moles/Vol] 132 mmol/L Low 133-145 [facility] Sodium level 132 mmol/L Low 133-145 [facility] Specific gravity (U) [Rel de nsity]Ordered By: Ciaran Rodrigez on 08-14-2024 Urine specific gravity measurement 1.010 1.002-1.03 0 [facility] Squamous epithelial cells de tection in urine sediment by light microscopyOrdered By: Ciaran Rodrigez on 08-14-2024 Epithelial cells.squamous LM Ql (Urine sed) 0-5 SEEN /hpf 5-10 [facility] TSH DL <= 0.005 mIU/L QnOrde red By: Millie Massey on 08-14-2024 TSH Qn 9.430 uIU/mL High 0.300-4.20 0 [facility] Serum or plasma thyroid stimulating hormone (TSH) measurement by high sensitivity met 9.430 uIU/mL High 0.300-4.20 0 [facility] Thyroid Stim Hormone (TSH)on 08-14-2024 TSH 9.430 uIU/mL High 0.300-4.20 0 [facility] Comment on above: Order Comment: 206 Performed By: #### L 500.4100, L100.4500, L506.1001, L500.2500, L501.9520, L100.0500, L501.5200, L503.0106 ####[facility] [address] [place], [address] Total carbon dioxide measure mentOrdered By: Ciaran Rodrigez on 08-14-2024 CO2 [Moles/Vol] 23 mmol/L [facility] Total carbon dioxide measurement 23 mmol/L [facility] Total proteinOrdered By: Myke Magaña on 08-14-2024 Protein [Mass/Vol] 5.4 g/dL Low 5.9-8.4 [facility] Total protein 5.4 g/dL Low 5.9-8.4 [facility] Total proteinOrdered By: Adelfo Rodrigez on 08-14-2024 Total protein 5.5 g/dL Low 5.9-8.4 [facility] Triglycerides measurementOrd ered By: Millie Massey on 08-14-2024 Triglycerides measurement 46 mg/dL <199 [facility] Troponin T.cardiac High sens itivity method [Mass/Vol]Ordered By: Ciaran Walsh on 08-14-2024 Troponin T.cardiac [Mass/volume] in Serum or Plasma by High sensitivity method 221 ng/L High <14 [facility] Troponin T.cardiac [Mass/vol ume] in Serum or Plasma by High sensitivity methodOrdered By: Ciaran Rodrigez on 08-14-2024 Troponin T.cardiac High sensitivity method [Mass/Vol] 221 ng/L High <14 [facility] Urea nitrogen [Mass/Vol]Orde red By: Ciaran Rodrigez on 08-14-2024 Serum or plasma urea nitrogen measurement (mass/volume) 39 mg/dL High 4-19 [facility] Urea nitrogen [Mass/Vol]Orde red By: Millie Massey on 08-14-2024 Serum or plasma urea nitrogen measurement (mass/volume) 39 mg/dL High 4-19 [facility] Urinalysis, Completeon 08-14 CA OX CRYSTAL 1+ /hpf Normal [facility] Comment on above: Order Comment: ADWOA CTOR TO SPECIFY Performed By: #### L 400.0001 ####[facility] [address] [place], [address] EPI,SQUAMOUS 0-5 SEEN Normal 5-10 [facility] Comment on above: Order Comment: ADWOA CTOR TO SPECIFY Performed By: #### L 400.0001 ####[facility] [address] [place], [address] RBC 0-5 SEEN Normal 0-5 [facility] Comment on above: Order Comment: ADWOA CTOR TO SPECIFY Performed By: #### L 400.0001 ####[facility] [address] [place], [address] WBC 25-50 SEEN Normal 0-5 [facility] Comment on above: Order Comment: ADWOA CTOR TO SPECIFY Performed By: #### L 400.0001 ####[facility] [address] [place], [address] BACTERIA 0 SEEN Normal None Seen [facility] Comment on above: Order Comment: ADWOA CTOR TO SPECIFY Performed By: #### L 400.0001 ####[facility] [address] [place], [address] Mucus Ql (Urine sed) 0 SEEN Normal [facility] Comment on above: Order Comment: ADWOA CTOR TO SPECIFY Performed By: #### L 400.0001 ####[facility] [address] [place], [address] Urine blood detectionOrdered By: Ciaran Rodrigez on 08-14-2024 Urine blood detection 25 /ul High Negative [facility] Urine clarityOrdered By: Adelfo Rodrigez on 08-14-2024 Clarity (U) Sl. Cloudy Clear [facility] Urine color determinationOrd ered By: Ciaran Rodrigez on 08-14-2024 Color (U) Yellow Yellow [facility] Urine cultureOrdered By: Adelfo Rodrigez on 08-14-2024 Bacteria identified Cx Nom (U) Enterococcus faecium Abnormal [facility] Bacteria identified Cx Nom (U) Citrobacter freundii Abnormal [facility] Urine culture Enterococcus faecium Abnormal [facility] Urine culture Citrobacter freundii Abnormal [facility] Urine glucose detectionOrder ed By: Ciaran Rodrigez on 08-14-2024 Glucose Ql (U) Normal mg/dl Normal [facility] Urine glucose detection Normal mg/dl Normal [facility] Urine leukocyte esterase det ection by dipstickOrdered By: Ciaran Rodrigez on 08-14-2024 Leukocyte esterase Test strip Ql (U) 500 /ul High Negative [facility] Urine pHOrdered By: Ciaran Ruelas on 08-14-2024 pH (U) 8.0 [pH] 5.0 - 8.0 [facility] Urine sediment bacteria coun t by microscopy (number/high power field)Ordered By: Ciaran Rodrigez on 08-14-2024 Bacteria LM.HPF (Urine sed) [#/Area] 0 /[HPF] None Seen [facility] Urine sediment bacteria count by microscopy (number/high power field) 0 SEEN /hpf [facility] Urine specific gravity measu rementOrdered By: Ciaran Rodrigez on 08-14-2024 Specific gravity (U) [Rel density] 1.010 1.002-1.03 0 [facility] Urine total bilirubin detect ion by test stripOrdered By: Ciaran Rodrigez on 08-14-2024 Urine total bilirubin detection by test strip Negative Negative [facility] Urine urobilinogen measureme ntOrdered By: Ciaran Rodrigez on 08-14-2024 Urobilinogen Ql (U) Normal mg/dl Normal [facility] Vitamin B12 ser/plasOrdered By: Millie Massey on 08-14-2024 Cobalamin (Vitamin B12) [Mass/Vol] 599 pg/mL 180-914 [facility] Vitamin D, 25-hydroxyOrdered By: Millie Massey on 08-14-2024 Vitamin D, 25-hydroxy 26.7 ng/mL Low 30-[address] [facility] White blood cell (WBC) count Ordered By: Ciaran Rodrigez on 08-14-2024 White blood cell (WBC) count 9.0 K/mm3 4.4-11.0 [facility] White blood cell (WBC) count Ordered By: Millie Massey on 08-14-2024 WBC (Bld) [#/Vol] 4.1 10*3/uL Low 4.4-11.0 [facility] White blood cell (WBC) count 4.1 K/mm3 Low 4.4-11.0 [facility] White blood cell countOrdere d By: Ciaran Rodrigez on 08-14-2024 White blood cell count 25-50 SEEN /hpf 0-5 [facility] White blood cell count 25-50 SEEN /hpf 0-5 [facility] aPTT Coag (PPP) [Time]Ordere d By: Ciaran Rodrigez on 08-14-2024 Activated partial thromboplastin time (aPTT) in platelet poor plasma by coagulation a 33.6 Seconds 24.1-36.2 [facility] pH (U)Ordered By: Ciaran Prieto on 08-14-2024 Urine pH 8.0 5.0 - 8.0 [facility] pH (Unsp spec)Ordered By: Dakota Rodrigez on 08-14-2024 Measurement, pH 7.36 7.35-7.45 [facility] Absolute lymphocyte countOrd ered By: Nikolas Magaña on 08-13-2024 Lymphocytes Auto (Unsp spec) [#/Vol] 0.60 10*3/uL Low 0.83-4.51 [facility] Absolute neutrophil countOrd ered By: Nikolas Magaña on 08-13-2024 Absolute neutrophil count 3.4 X10^3/uL 2.0-7.7 [facility] Anion gap [Moles/Vol]Ordered By: Nikolas Magaña on 08-13-2024 Anion gap in Serum or Plasma 7 5-15 [facility] Anion gap in Serum or Plasma Ordered By: Nikolas Magaña on 08-13-2024 Anion gap [Moles/Vol] 7 mmol/L -[address] [facility] Automated lymphocyte count a s percentage of total leukocytesOrdered By: Nikolas Magaña on 08-13-2024 Lymphocytes/100 WBC Auto (Unsp spec) 12.9 % Low 19-41 [facility] BUN/creatinine ratioOrdered By: Nikolas Magaña on 08-13-2024 Urea nitrogen/Creatinine [Mass ratio] 22.7 mg/mg High 10-20 [facility] BUN/creatinine ratio 22.7 RATIO High 10-20 [facility] Basic Metabolic Profile (BMP )on 08-13-2024 BUN/CRE 22.7 RATIO High 10-20 [facility] Comment on above: Order Comment: PER P CU NURSEVALERIY TO DRAW @0815 WITH GLUCOSE Performed By: #### L 100.0100, L500.2500 ####[facility] [address] [place], [address] Calcium [Mass/Vol] 7.8 mg/dL Normal 7.6-11.0 [facility] Comment on above: Order Comment: PER P CU NURSEVALERIY TO DRAW @0815 WITH GLUCOSE Performed By: #### L 100.0100, L500.2500 ####[facility] [address] [place], [address] Chloride [Moles/Vol] 106 mmol/L Normal 98-108 [facility] Comment on above: Order Comment: PER P CU NURSEVALERIY TO DRAW @0815 WITH GLUCOSE Performed By: #### L 100.0100, L500.2500 ####[facility] [address] [place], [address] CO2 [Moles/Vol] 23.8 mmol/L Normal 21.0-32.0 [facility] Comment on above: Order Comment: PER P CU NURSEVALERIY TO DRAW @0815 WITH GLUCOSE Performed By: #### L 100.0100, L500.2500 ####[facility] [address] [place], [address] Creatinine [Mass/Vol] 1.21 mg/dL High 0.70-1.[address] [facility] Comment on above: Order Comment: PER P CU NURSEVALERIY TO DRAW @0815 WITH GLUCOSE Performed By: #### L 100.0100, L500.2500 ####[facility] [address] [place], [address] ECRCL 30.44 ml/min Low 50-250 [facility] Comment on above: Order Comment: PER P CU NURSEVALERIY TO DRAW @0815 WITH GLUCOSE Performed By: #### L 100.0100, L500.2500 ####[facility] [address] [place], [address] GAP 7 Normal 5-15 [facility] Comment on above: Order Comment: PER P CU NURSEVALERIY TO DRAW @0815 WITH GLUCOSE Performed By: #### L 100.0100, L500.2500 ####[facility] [address] [place], [address] GFR/1.73 sq M.predicted among non-blacks MDRD (S/P/Bld) [Vol rate/Area] 51 mL/min/{1.73_m2} Low >60 [facility] Comment on above: Order Comment: PER P CU NURSEVALERIY TO DRAW @0815 WITH GLUCOSE Result Comment: mL/m in/1.73m2 CKD-EPI Creatinine Equation (2020) Performed By: #### L 100.0100, L500.2500 ####[facility] [address] [place], [address] Glucose [Mass/Vol] 85 mg/dL Normal 70-99 [facility] Comment on above: Order Comment: PER P CU NURSEVALERIY TO DRAW @0815 WITH GLUCOSE Performed By: #### L 100.0100, L500.2500 ####[facility] [address] [place], [address] Potassium [Moles/Vol] 4.3 mmol/L Normal 3.3-5.[address] [facility] Comment on above: Order Comment: PER P CU NURSE, IMANAY TO DRAW @0815 WITH GLUCOSE Performed By: #### L 100.0100, L500.2500 ####[facility] [address] [place], [address] Sodium [Moles/Vol] 137 mmol/L Normal 133-145 [facility] Comment on above: Order Comment: PER P CU NURSE, IMANAY TO DRAW @0815 WITH GLUCOSE Performed By: #### L 100.0100, L500.2500 ####[facility] [address] [place], [address] Urea nitrogen [Mass/Vol] 28 mg/dL High 4-19 [facility] Comment on above: Order Comment: PER P CU NURSE, IMANAY TO DRAW @0815 WITH GLUCOSE Performed By: #### L 100.0100, L500.2500 ####[facility] [address] [place], [address] Basophil percentageOrdered B y: Nikolas Gómez on 08-13-2024 Basophils/100 WBC (Bld) 1.1 % High 0-1 [facility] Basophil percentage 1.1 % High 0-1 [facility] Bedside Glucoseon 08-13-2024 FINGERSTICK GLU 134 mg/dL High 74-106 [facility] Comment on above: Result Comment: LUIZA GEMENT OF PATIENT CARE PER NURSING PROTOCOL Performed By: #### L 501.080 ####[facility] [address] [place], [address] FINGERSTICK GLU 86 mg/dL Normal 74-106 [facility] Comment on above: Result Comment: LUIZA GEMENT OF PATIENT CARE PER NURSING PROTOCOL Performed By: #### L 501.080 ####[facility] [address] [place], [address] FINGERSTICK GLU 31 mg/dL Invalid Interpretation Code 74-106 [facility] Comment on above: Result Comment: Dext tushar 50 GivenMANAGEMENT OF PATIENT CARE PER NURSING PROTOCOL Performed By: #### L 501.080 ####[facility] [address] [place], [address] FINGERSTICK GLU 54 mg/dL Low 74-106 [facility] Comment on above: Result Comment: LUIZA GEMENT OF PATIENT CARE PER NURSING PROTOCOL Performed By: #### L 501.080 ####[facility] [address] [place], [address] FINGERSTICK GLU 88 mg/dL Normal 74-106 [facility] Comment on above: Result Comment: LUIZA GEMENT OF PATIENT CARE PER NURSING PROTOCOL Performed By: #### L 501.080 ####[facility] [address] [place], [address] FINGERSTICK GLU 93 mg/dL Normal 74-106 [facility] Comment on above: Result Comment: LUIZA GEMENT OF PATIENT CARE PER NURSING PROTOCOL Performed By: #### L 501.080 ####[facility] [address] [place], [address] CBC W/Diff, Automatedon 07-27 Absolute Lymph 0.60 X10 3/uL Low 0.83-4.51 [facility] Comment on above: Order Comment: PER P CU NURSE, OKAY TO DRAW @0815 WITH GLUCOSE Performed By: #### L 100.0100, L500.2500 ####[facility] [address] [place], [address] Absolute Neut 3.4 X10 3/uL Normal 2.0-7.7 [facility] Comment on above: Order Comment: PER P CU NURSE, OKAY TO DRAW @0815 WITH GLUCOSE Performed By: #### L 100.0100, L500.2500 ####[facility] [address] [place], [address] Basophils/100 WBC (Bld) 1.1 % High 0-1 [facility] Comment on above: Order Comment: PER P CU NURSE, IMANAY TO DRAW @0815 WITH GLUCOSE Performed By: #### L 100.0100, L500.2500 ####[facility] [address] [place], [address] Eosinophils/100 WBC (Bld) 3.4 % Normal 0-5 [facility] Comment on above: Order Comment: PER P CU NURSE, IMANAY TO DRAW @0815 WITH GLUCOSE Performed By: #### L 100.0100, L500.2500 ####[facility] [address] [place], [address] Erythrocyte distribution width (RBC) [Ratio] 20.0 % High 11.6-14.6 [facility] Comment on above: Order Comment: PER P CU NURSE, IMANAY TO DRAW @0815 WITH GLUCOSE Performed By: #### L 100.0100, L500.2500 ####[facility] [address] [place], [address] Hematocrit (Bld) [Volume fraction] 26.7 % Low 37-47 [facility] Comment on above: Order Comment: PER P CU NURSEIMANAY TO DRAW @0815 WITH GLUCOSE Performed By: #### L 100.0100, L500.2500 ####[facility] [address] [place], [address] Hemoglobin (Bld) [Mass/Vol] 8.1 g/dL Low 12.0-15.0 [facility] Comment on above: Order Comment: PER P CU NURSEIMANAY TO DRAW @0815 WITH GLUCOSE Performed By: #### L 100.0100, L500.2500 ####[facility] [address] [place], [address] IG% 2.400 High 0.0-0.9 [facility] Comment on above: Order Comment: PER P CU NURSE, OKAY TO DRAW @0815 WITH GLUCOSE Result Comment: IG% - Immature Granulocytes (promyelocytes, myelocytes andmetamyelocytes) > 1% indicates that a LEFT SHIFT is Present. Performed By: #### L 100.0100, L500.2500 ####[facility] [address] [place], [address] Lymphocytes/100 WBC (Bld) 12.9 % Low 19-41 [facility] Comment on above: Order Comment: PER P CU NURSE, IMANAY TO DRAW @0815 WITH GLUCOSE Performed By: #### L 100.0100, L500.2500 ####[facility] [address] [place], [address] MCH (RBC) [Entitic mass] 27.3 pg Normal 27.0-32.0 [facility] Comment on above: Order Comment: PER P CU NURSE, OKAY TO DRAW @0815 WITH GLUCOSE Performed By: #### L 100.0100, L500.2500 ####[facility] [address] [place], [address] MCHC (RBC) [Mass/Vol] 30.3 g/dL Low 32-[address] [facility] Comment on above: Order Comment: PER P CU NURSE, IMANAY TO DRAW @0815 WITH GLUCOSE Performed By: #### L 100.0100, L500.2500 ####[facility] [address] [place], [address] MCV (RBC) [Entitic vol] 89.9 fL Normal 81-99 [facility] Comment on above: Order Comment: PER P CU NURSEIMANAY TO DRAW @0815 WITH GLUCOSE Performed By: #### L 100.0100, L500.2500 ####[facility] [address] [place], [address] Monocytes/100 WBC (Bld) 8.2 % Normal 0-10 [facility] Comment on above: Order Comment: PER P CU NURSE, OKAY TO DRAW @0815 WITH GLUCOSE Performed By: #### L 100.0100, L500.2500 ####[facility] [address] [place], [address] Neutrophils/100 WBC (Bld) 72.0 % High 47-70 [facility] Comment on above: Order Comment: PER P CU NURSE, OKAY TO DRAW @0815 WITH GLUCOSE Performed By: #### L 100.0100, L500.2500 ####[facility] [address] [place], [address] Nucleated RBC (Bld) [#/Vol] 0 10*3/uL Normal 0-5 [facility] Comment on above: Order Comment: PER P CU NURSE, OKAY TO DRAW @0815 WITH GLUCOSE Performed By: #### L 100.0100, L500.2500 ####[facility] [address] [place], [address] Platelet mean volume (Bld) [Entitic vol] 10.2 fL Normal 6.2-12.0 [facility] Comment on above: Order Comment: PER P CU NURSE, IMANAY TO DRAW @0815 WITH GLUCOSE Performed By: #### L 100.0100, L500.2500 ####[facility] [address] [place], [address] Platelets (Bld) [#/Vol] 120 10*3/uL Low 150-450 [facility] Comment on above: Order Comment: PER P CU NURSE, OKAY TO DRAW @0815 WITH GLUCOSE Performed By: #### L 100.0100, L500.2500 ####[facility] [address] [place], [address] RBC (Bld) [#/Vol] 2.97 10*6/uL Low 4.2-5.4 [facility] Comment on above: Order Comment: PER P CU NURSE, OKAY TO DRAW @0815 WITH GLUCOSE Performed By: #### L 100.0100, L500.2500 ####[facility] [address] [place], [address] RDW SD 62.6 fl High 35.1-43.9 [facility] Comment on above: Order Comment: PER P CU NURSEVALERIY TO DRAW @0815 WITH GLUCOSE Performed By: #### L 100.0100, L500.2500 ####[facility] [address] [place], [address] WBC (Bld) [#/Vol] 4.7 10*3/uL Normal 4.4-11.0 [facility] Comment on above: Order Comment: PER P RHIANNON NURSEVALERIY TO DRAW @0815 WITH GLUCOSE Performed By: #### L 100.0100, L500.2500 ####[facility] [address] [place], [address] Calcium [Mass/Vol]Ordered By : Nikolas Magaña on 08-13-2024 Serum or plasma calcium measurement (mass/volume) 7.8 mg/dL 7.6-11.0 [facility] Carbon dioxide, total [Moles /volume] in Central venous bloodOrdered By: Nikolas Magaña on 08-13-2024 CO2 [Moles/Vol] 23.8 mmol/L 21.0-32.0 [facility] Carbon dioxide, total [Moles/volume] in Central venous blood 23.8 mmol/L 21.0-32.0 [facility] Chloride assayOrdered By: Oscar Magaña on 08-13-2024 Chloride [Moles/Vol] 106 mmol/L 98-108 [facility] Chloride assay 106 mmol/L 98-108 [facility] Creatinine [Mass/Vol]Ordered By: Nikolas Magaña on 08-13-2024 Serum creatinine measurement (mass/volume) 1.21 mg/dL High 0.70-1.20 [facility] Eosinophil percentageOrdered By: Nikolas Magaña on 08-13-2024 Eosinophils/100 WBC (Bld) 3.4 % 0-5 [facility] Eosinophil percentage 3.4 % 0-[address] [facility] Erythrocyte distribution wid th (RBC) [Ratio]Ordered By: Nikolas Magaña on 08-13-2024 Erythrocyte distribution width ratio 20.0 % High 11.6-14.6 [facility] Erythrocyte distribution wid th ratioOrdered By: Nikolas Magaña on 08-13-2024 Erythrocyte distribution width (RBC) [Ratio] 20.0 % High 11.6-14.6 [facility] Erythrocyte distribution wid th standard deviationOrdered By: Nikolas Magaña on 08-13-2024 Erythrocyte distribution width (RBC) [Ratio] 62.6 fl High 35.1-43.9 [facility] Erythrocyte distribution width standard deviation 62.6 fl High 35.1-43.9 [facility] Estimation of creatinine austen aranceOrdered By: Nikolas Magaña on 08-13-2024 Estimation of creatinine clearance 30.44 ml/min Low 50-250 [facility] GFR/1.73 sq M.predicted víctor g non-blacks MDRD (S/P/Bld) [Vol rate/Area]Ordered By: Nikolas Magaña on 08-13-2024 Glomerular filtration rate (GFR) estimation/1.73 sq m using serum, plasma, or whole b 51 Low >60 [facility] Glomerular filtration rate ( GFR) estimation/1.73 sq m using serum, plasma, or whole bOrdered By: Nikolas Magaña on 08-13-2024 GFR/1.73 sq M.predicted among non-blacks MDRD (S/P/Bld) [Vol rate/Area] 51 mL/min/{1.73_m2} Low >60 [facility] Glucoseon 08-13-2024 Glucose [Mass/Vol] 121 mg/dL High 70-99 [facility] Comment on above: Performed By: #### L 501.0100 ####[facility] [address] [place], [place], [address] Glucose [Mass/Vol] 105 mg/dL High 70-99 [facility] Comment on above: Performed By: #### L 501.0100 ####[facility] [address] [place], [place], [address] Glucose [Mass/Vol] 103 mg/dL High 70-99 [facility] Comment on above: Performed By: #### L 501.0100 ####[facility] [address] [place], [place], [id number] Glucose [Mass/Vol]Ordered By : Judd Galvin on 08-13-2024 Serum glucose measurement (mass/volume) 121 mg/dL High 70-99 [facility] Glucose measurement at bedsi deOrdered By: Nikolas Magaña on 08-13-2024 Glucose [Mass/Vol] 134 mg/dL High 74-106 [facility] Glucose measurement at bedside 134 mg/dL High 74-106 [facility] HbA1c (Bld) [Mass fraction]O rdered By: Nikolas Magaña on 08-13-2024 Hemoglobin A1c percentage 5.1 % Low >5.7 [facility] Hematocrit Auto (Bld) [Volum e fraction]Ordered By: Nikolas Magaña on 08-13-2024 Hematocrit (Bld) [Volume fraction] 26.7 % Low 37-47 [facility] Automated blood hematocrit (percentage) 26.7 % Low 37-47 [facility] Hemoglobin A1con 08-13-2024 HbA1c (Bld) [Mass fraction] 5.1 % Low <=5.6 [facility] Comment on above: Order Comment: VALERIY CARO TO DRAW @0815 WITH GLUCOSE Performed By: #### L 501.9985 ####[facility] [address] [place], [place], [address] Hemoglobin A1c percentageOrd ered By: Nikolas Magaña on 08-13-2024 HbA1c (Bld) [Mass fraction] 5.1 % Low >5.7 [facility] Hemoglobin measurementOrdere d By: Nikolas Magaña on 08-13-2024 Hemoglobin (Bld) [Mass/Vol] 8.1 g/dL Low 12.0-15.0 [facility] Hemoglobin measurement 8.1 g/dL Low 12.0-15.0 [facility] Immature granulocytes/100 WB C Auto (Bld)Ordered By: Nikolas Magaña on 08-13-2024 Immature granulocytes/100 WBC (Bld) 2.400 % High 0.0-0.9 [facility] Automated immature granulocyte percentage 2.400 % High 0.0-0.9 [facility] Lymphocytes Auto (Unsp spec) [#/Vol]Ordered By: Nikolas Magaña on 08-13-2024 Absolute lymphocyte count 0.60 X10^3/uL Low 0.83-4.51 [facility] Lymphocytes/100 WBC Auto (Un sp spec)Ordered By: Nikolas Magaña on 08-13-2024 Automated lymphocyte count as percentage of total leukocytes 12.9 % Low 19-41 [facility] MCV (RBC) [Entitic vol]Order ed By: Nikolas Magaña on 08-13-2024 MCV (mean corpuscular volume) determination 89.9 fL 81-99 [facility] MCV (mean corpuscular volume ) determinationOrdered By: Nikolas Magaña on 08-13-2024 MCV (RBC) [Entitic vol] 89.9 fL 81-99 [facility] Mean corpuscular hemoglobin (MCH) determinationOrdered By: Nikolas Magaña on 08-13-2024 MCH (RBC) [Entitic mass] 27.3 pg 27.0-32.0 [facility] Mean corpuscular hemoglobin (MCH) determination 27.3 pg 27.0-32.0 [facility] Mean corpuscular hemoglobin concentration (MCHC) determinationOrdered By: Nikolas Magaña on 08-13-2024 Mean corpuscular hemoglobin concentration (MCHC) determination 30.3 g/dL Low 32-36 [facility] Mean platelet volume determi nationOrdered By: Nikolas Magaña on 08-13-2024 Mean platelet volume determination 10.2 fl 6.2-12.0 [facility] Monocyte percentageOrdered B y: Nikolas Magaña on 08-13-2024 Monocytes/100 WBC (Bld) 8.2 % 0-10 [facility] Monocyte percentage 8.2 % 0-10 [facility] Neutrophil percentageOrdered By: Nikolas Magaña on 08-13-2024 Neutrophils/100 WBC (Bld) 72.0 % High 47-70 [facility] Neutrophil percentage 72.0 % High 47-[address] [facility] Nucleated red blood cell per centageOrdered By: Nikolas Magaña on 08-13-2024 Nucleated red blood cell percentage 0 % 0-5 [facility] Platelet countOrdered By: Oscar Magaña on 08-13-2024 Platelets (Bld) [#/Vol] 120 10*3/uL Low 150-450 [facility] Platelet count 120 K/mm3 Low 150-450 [facility] Potassium (Unsp spec) [Mass/ Vol]Ordered By: Nikolas Magaña on 08-13-2024 Potassium measurement (mass/volume) 4.3 mmol/L 3.3-5.1 [facility] Potassium measurement (mass/ volume)Ordered By: Nikolas Magaña on 08-13-2024 Potassium (Unsp spec) [Mass/Vol] 4.3 mmol/L 3.3-5.1 [facility] RBC Auto (Bld) [#/Vol]Ordere d By: Nikolas aMgaña on 08-13-2024 RBC (Bld) [#/Vol] 2.97 10*6/uL Low 4.2-5.4 [facility] Automated blood erythrocyte count 2.97 M/mm3 Low 4.2-5.4 [facility] Serum creatinine measurement (mass/volume)Ordered By: Nikolas Magaña on 08-13-2024 Creatinine [Mass/Vol] 1.21 mg/dL High 0.70-1.[address] [facility] Serum glucose measurement (m ass/volume)Ordered By: Judd Galvin on 08-13-2024 Glucose [Mass/Vol] 121 mg/dL High 70-99 [facility] Serum or plasma calcium megan urement (mass/volume)Ordered By: Nikolas Magaña on 08-13-2024 Calcium [Mass/Vol] 7.8 mg/dL 7.6-11.0 [facility] Serum or plasma urea nitroge n measurement (mass/volume)Ordered By: Nikolas Magaña on 08-13-2024 Urea nitrogen [Mass/Vol] 28 mg/dL High 4-19 [facility] Sodium levelOrdered By: Hemanth Magaña on 08-13-2024 Sodium [Moles/Vol] 137 mmol/L 133-145 [facility] Sodium level 137 mmol/L 133-145 [facility] Urea nitrogen [Mass/Vol]Orde red By: Nikolas Magaña on 08-13-2024 Serum or plasma urea nitrogen measurement (mass/volume) 28 mg/dL High 4-19 [facility] White blood cell (WBC) count Ordered By: Nikolas Magaña on 08-13-2024 WBC (Bld) [#/Vol] 4.7 10*3/uL 4.4-11.0 [facility] White blood cell (WBC) count 4.7 K/mm3 4.4-11.0 [facility] ABORh Blood Type, Patienton 08-12-2024 ABO and Rh group Nom (Bld) Blood group O Rh(D) positive Normal [facility] Comment on above: Order Comment: CMV N EG? NNumber of units to transfuse: 1Reason for Ordering Blood: AcuteAre the blood/blood products to be transfused? YIs the patient having/had surgery? NNWhen ReadyNYA Performed By: #### B RC, [id number], BTS, BtABORH, [id number] ####[facility] [address] [place], [address] [id number] 08-12-2024 ANTIBODY ID Normal [facility] Comment on above: Result Comment: CFYA Performed By: #### B RC, [id number], BTS, BtABORH, [id number] ####[facility] [address] [place], [address] BRCon 08-12-2024 Normal [facility] Comment on above: Result Comment: [id number] ON RC TRANSFUSED 08/12/24 1538 Performed By: #### B RC, [id number], BTS, BtABORH, [id number] ####[facility] [address] [place], [address] Basic Metabolic Profile (BMP )on 08-12-2024 BUN/CRE 18.0 RATIO Normal 10-20 [facility] Comment on above: Performed By: #### L 500.2500, L100.0100 ####[facility] [address] [place], [address] Calcium [Mass/Vol] 7.6 mg/dL Normal 7.6-11.0 [facility] Comment on above: Performed By: #### L 500.2500, L100.0100 ####[facility] [address] [place], [address] Chloride [Moles/Vol] 106 mmol/L Normal 98-108 [facility] Comment on above: Performed By: #### L 500.2500, L100.0100 ####[facility] [address] [place], [address] CO2 [Moles/Vol] 22.3 mmol/L Normal 21.0-32.0 [facility] Comment on above: Performed By: #### L 500.2500, L100.0100 ####[facility] [address] [place], [address] Creatinine [Mass/Vol] 1.47 mg/dL High 0.70-1.[address] [facility] Comment on above: Performed By: #### L 500.2500, L100.0100 ####[facility] [address] [place], [address] ECRCL 26.31 ml/min Low 50-250 [facility] Comment on above: Performed By: #### L 500.2500, L100.0100 ####[facility] [address] [place], [address] GAP 8 Normal 5-15 [facility] Comment on above: Performed By: #### L 500.2500, L100.0100 ####[facility] [address] [place], [address] GFR/1.73 sq M.predicted among non-blacks MDRD (S/P/Bld) [Vol rate/Area] 40 mL/min/{1.73_m2} Low >60 [facility] Comment on above: Result Comment: mL/m in/1.73m2 CKD-EPI Creatinine Equation (2020) Performed By: #### L 500.2500, L100.0100 ####[facility] [address] [place], [address] Glucose [Mass/Vol] 104 mg/dL High 70-99 [facility] Comment on above: Performed By: #### L 500.2500, L100.0100 ####[facility] [address] [place], [address] Potassium [Moles/Vol] 4.0 mmol/L Normal 3.3-5.[address] [facility] Comment on above: Performed By: #### L 500.2500, L100.0100 ####[facility] [address] [place], [address] Sodium [Moles/Vol] 136 mmol/L Normal 133-145 [facility] Comment on above: Performed By: #### L 500.2500, L100.0100 ####[facility] [address] [place], [address] Urea nitrogen [Mass/Vol] 27 mg/dL High 4-19 [facility] Comment on above: Performed By: #### L 500.2500, L100.0100 ####[facility] [address] [place], [address] Bedside Glucoseon 08-12-2024 FINGERSTICK GLU 61 mg/dL Low 74-106 [facility] Comment on above: Result Comment: LUIZA DIAZ OF PATIENT CARE PER NURSING PROTOCOL Performed By: #### L 501.080 ####[facility] [address] [place], [address] CBC W/Diff, Automatedon 07-27 Absolute Lymph 0.51 X10 3/uL Low 0.83-4.51 [facility] Comment on above: Performed By: #### L 500.2500, L100.0100 ####[facility] [address] [place], [address] Absolute Neut 4.0 X10 3/uL Normal 2.0-7.7 [facility] Comment on above: Performed By: #### L 500.2500, L100.0100 ####[facility] [address] [place], [address] Basophils/100 WBC (Bld) 0.4 % Normal 0-1 [facility] Comment on above: Performed By: #### L 500.2500, L100.0100 ####[facility] [address] [place], [address] Eosinophils/100 WBC (Bld) 3.4 % Normal 0-5 [facility] Comment on above: Performed By: #### L 500.2500, L100.0100 ####[facility] [address] [place], [address] Erythrocyte distribution width (RBC) [Ratio] 19.9 % High 11.6-14.6 [facility] Comment on above: Performed By: #### L 500.2500, L100.0100 ####[facility] [address] [place], [address] Hematocrit (Bld) [Volume fraction] 21.7 % Low 37-47 [facility] Comment on above: Performed By: #### L 500.2500, L100.0100 ####[facility] [address] [place], [address] Hemoglobin (Bld) [Mass/Vol] 6.6 g/dL Low 12.0-15.0 [facility] Comment on above: Performed By: #### L 500.2500, L100.0100 ####[facility] [address], [address] IG% 1.600 High 0.0-0.9 [facility] Comment on above: Result Comment: IG% - Immature Granulocytes (promyelocytes, myelocytes andmetamyelocytes) > 1% indicates that a LEFT SHIFT is Present. Performed By: #### L 500.2500, L100.0100 ####[facility] [address] [place], [address] Lymphocytes/100 WBC (Bld) 10.1 % Low 19-41 [facility] Comment on above: Performed By: #### L 500.2500, L100.0100 ####[facility] [address] [place], [address] MCH (RBC) [Entitic mass] 27.2 pg Normal 27.0-32.0 [facility] Comment on above: Performed By: #### L 500.2500, L100.0100 ####[facility] [address] [place], [address] MCHC (RBC) [Mass/Vol] 30.4 g/dL Low 32-[address] [facility] Comment on above: Performed By: #### L 500.2500, L100.0100 ####[facility] [address] [place], [address] MCV (RBC) [Entitic vol] 89.3 fL Normal 81-99 [facility] Comment on above: Performed By: #### L 500.2500, L100.0100 ####[facility] [address] [place], [address] Monocytes/100 WBC (Bld) 6.3 % Normal 0-10 [facility] Comment on above: Performed By: #### L 500.2500, L100.0100 ####[facility] [address] [place], [address] Neutrophils/100 WBC (Bld) 78.2 % High 47-70 [facility] Comment on above: Performed By: #### L 500.2500, L100.0100 ####[facility] [address] [place], [address] Nucleated RBC (Bld) [#/Vol] 0 10*3/uL Normal 0-5 [facility] Comment on above: Performed By: #### L 500.2500, L100.0100 ####[facility] [address] [place], [address] Platelet mean volume (Bld) [Entitic vol] 10.1 fL Normal 6.2-12.0 [facility] Comment on above: Performed By: #### L 500.2500, L100.0100 ####[facility] [address] [place], [address] Platelets (Bld) [#/Vol] 107 10*3/uL Low 150-450 [facility] Comment on above: Performed By: #### L 500.2500, L100.0100 ####[facility] [address] [place], [address] RBC (Bld) [#/Vol] 2.43 10*6/uL Low 4.2-5.4 [facility] Comment on above: Performed By: #### L 500.2500, L100.0100 ####[facility] [address] [place], [address] RDW SD 63.5 fl High 35.1-43.9 [facility] Comment on above: Performed By: #### L 500.2500, L100.0100 ####[facility] [address] [place], [address] WBC (Bld) [#/Vol] 5.1 10*3/uL Normal 4.4-11.0 [facility] Comment on above: Performed By: #### L 500.2500, L100.0100 ####[facility] [address] [place], [address] Glucoseon 08-12-2024 Glucose [Mass/Vol] 102 mg/dL High 70-99 [facility] Comment on above: Performed By: #### L 501.0100 ####[facility] [address] [place], [address] Glucose [Mass/Vol] 113 mg/dL High 70-99 [facility] Comment on above: Performed By: #### L 501.0100 ####[facility] [address] [place], [address] Glucose [Mass/Vol] 85 mg/dL Normal 70-99 [facility] Comment on above: Performed By: #### L 501.0100 ####[facility] [address] [place], [address] Glucose [Mass/Vol] 109 mg/dL High 70-99 [facility] Comment on above: Performed By: #### L 501.0100 ####[facility] [address] [place], [address] Type AND Screenon 08-12-2024 Ab SCREEN GEL Positive Abnormal [facility] Comment on above: Order Comment: CMV N EG? NNumber of units to transfuse: 1Reason for Ordering Blood: AcuteAre the blood/blood products to be transfused? YIs the patient having/had surgery? NNWhen ReadyNYA Result Comment: AMENDED REPORT 08/12/24 1425: Antibody Screen previously reported as:Test not performed AMENDED REPORT 08/12/24 1425: Antibody Screen previously reported as:Test not performed Performed By: #### B RC, [id number], BTS, BtABORH, [id number] ####[facility] [address] [place], [address] Basic Metabolic Profile (BMP )on 08-11-2024 BUN/CRE 18.6 RATIO Normal 10-20 [facility] Comment on above: Performed By: #### L 100.0100, L500.2500 ####[facility] [address] [place], [address] Calcium [Mass/Vol] 7.4 mg/dL Low 7.6-11.0 [facility] Comment on above: Performed By: #### L 100.0100, L500.2500 ####[facility] [address] [place], [address] Chloride [Moles/Vol] 106 mmol/L Normal 98-108 [facility] Comment on above: Performed By: #### L 100.0100, L500.2500 ####[facility] [address] [place], [address] CO2 [Moles/Vol] 21.3 mmol/L Normal 21.0-32.0 [facility] Comment on above: Performed By: #### L 100.0100, L500.2500 ####[facility] [address] [place], [address] Creatinine [Mass/Vol] 1.39 mg/dL High 0.70-1.[address] [facility] Comment on above: Performed By: #### L 100.0100, L500.2500 ####[facility] [address] [place], [address] ECRCL 27.82 ml/min Low 50-250 [facility] Comment on above: Performed By: #### L 100.0100, L500.2500 ####[facility] [address] [place], [address] GAP 9 Normal 5-15 [facility] Comment on above: Performed By: #### L 100.0100, L500.2500 ####[facility] [address] [place], [address] GFR/1.73 sq M.predicted among non-blacks MDRD (S/P/Bld) [Vol rate/Area] 43 mL/min/{1.73_m2} Low >60 [facility] Comment on above: Result Comment: mL/m in/1.73m2 CKD-EPI Creatinine Equation (2020) Performed By: #### L 100.0100, L500.2500 ####[facility] [address] [place], [address] Glucose [Mass/Vol] 114 mg/dL High 70-99 [facility] Comment on above: Performed By: #### L 100.0100, L500.2500 ####[facility] [address] [place], [address] Potassium [Moles/Vol] 3.7 mmol/L Normal 3.3-5.[address] [facility] Comment on above: Performed By: #### L 100.0100, L500.2500 ####[facility] [address], [address] Sodium [Moles/Vol] 136 mmol/L Normal 133-145 [facility] Comment on above: Performed By: #### L 100.0100, L500.2500 ####[facility] [address] [place], [address] Urea nitrogen [Mass/Vol] 26 mg/dL High 4-19 [facility] Comment on above: Performed By: #### L 100.0100, L500.2500 ####[facility] [address], [address] CBC W/Diff, Automatedon 07-27 Absolute Lymph 0.53 X10 3/uL Low 0.83-4.51 [facility] Comment on above: Performed By: #### L 100.0100, L500.2500 ####[facility] [address] [place], [address] Absolute Neut 5.3 X10 3/uL Normal 2.0-7.7 [facility] Comment on above: Performed By: #### L 100.0100, L500.2500 ####[facility] [address] [place], [address] Basophils/100 WBC (Bld) 0.6 % Normal 0-1 [facility] Comment on above: Performed By: #### L 100.0100, L500.2500 ####[facility] [address] [place], [address] Eosinophils/100 WBC (Bld) 2.8 % Normal 0-5 [facility] Comment on above: Performed By: #### L 100.0100, L500.2500 ####[facility] [address] [place], [address] Erythrocyte distribution width (RBC) [Ratio] 19.5 % High 11.6-14.6 [facility] Comment on above: Performed By: #### L 100.0100, L500.2500 ####[facility] [address] [place], [address] Hematocrit (Bld) [Volume fraction] 24.7 % Low 37-47 [facility] Comment on above: Performed By: #### L 100.0100, L500.2500 ####[facility] [address] [place], [address] Hemoglobin (Bld) [Mass/Vol] 7.4 g/dL Low 12.0-15.0 [facility] Comment on above: Performed By: #### L 100.0100, L500.2500 ####[facility] [address] [place], [address] IG% 1.400 High 0.0-0.9 [facility] Comment on above: Result Comment: IG% - Immature Granulocytes (promyelocytes, myelocytes andmetamyelocytes) > 1% indicates that a LEFT SHIFT is Present. Performed By: #### L 100.0100, L500.2500 ####[facility] [address] [place], [address] Lymphocytes/100 WBC (Bld) 8.3 % Low 19-41 [facility] Comment on above: Performed By: #### L 100.0100, L500.2500 ####[facility] [address] [place], [address] MCH (RBC) [Entitic mass] 26.9 pg Low 27.0-32.0 [facility] Comment on above: Performed By: #### L 100.0100, L500.2500 ####[facility] [address] [place], [address] MCHC (RBC) [Mass/Vol] 30.0 g/dL Low 32-[address] [facility] Comment on above: Performed By: #### L 100.0100, L500.2500 ####[facility] [address] [place], [address] MCV (RBC) [Entitic vol] 89.8 fL Normal 81-99 [facility] Comment on above: Performed By: #### L 100.0100, L500.2500 ####[facility] [address] [place], [address] Monocytes/100 WBC (Bld) 4.8 % Normal 0-10 [facility] Comment on above: Performed By: #### L 100.0100, L500.2500 ####[facility] [address] [place], [address] Neutrophils/100 WBC (Bld) 82.1 % High 47-70 [facility] Comment on above: Performed By: #### L 100.0100, L500.2500 ####[facility] [address] [place], [address] Nucleated RBC (Bld) [#/Vol] 0 10*3/uL Normal 0-5 [facility] Comment on above: Performed By: #### L 100.0100, L500.2500 ####[facility] [address] [place], [address] Platelet mean volume (Bld) [Entitic vol] 10.0 fL Normal 6.2-12.0 [facility] Comment on above: Performed By: #### L 100.0100, L500.2500 ####[facility] [address] [place], [address] Platelets (Bld) [#/Vol] 113 10*3/uL Low 150-450 [facility] Comment on above: Performed By: #### L 100.0100, L500.2500 ####[facility] [address] [place], [address] RBC (Bld) [#/Vol] 2.75 10*6/uL Low 4.2-5.4 [facility] Comment on above: Performed By: #### L 100.0100, L500.2500 ####[facility] [address] [place], [address] RDW SD 62.7 fl High 35.1-43.9 [facility] Comment on above: Performed By: #### L 100.0100, L500.2500 ####[facility] [address] [place], [address] WBC (Bld) [#/Vol] 6.4 10*3/uL Normal 4.4-11.0 [facility] Comment on above: Performed By: #### L 100.0100, L500.2500 ####[facility] [address] [place], [address] Glucoseon 08-11-2024 Glucose [Mass/Vol] 99 mg/dL Normal 70-99 [facility] Comment on above: Performed By: #### L 501.0100 ####[facility] [address] [place], [address] Glucose [Mass/Vol] 99 mg/dL Normal 70-99 [facility] Comment on above: Performed By: #### L 501.0100 ####[facility] [address] [place], [address] Glucose [Mass/Vol] 123 mg/dL High 70-99 [facility] Comment on above: Performed By: #### L 501.0100 ####[facility] [address] [place], [address] Glucose [Mass/Vol] 127 mg/dL High 70-99 [facility] Comment on above: Performed By: #### L 501.0100 ####[facility] [address] [place], [address] Basic Metabolic Profile (BMP )on 08-10-2024 BUN/CRE 18.0 RATIO Normal 10-20 [facility] Comment on above: Performed By: #### L 100.0100, L500.2500 ####[facility] [address] [place], [address] Calcium [Mass/Vol] 7.6 mg/dL Normal 7.6-11.0 [facility] Comment on above: Performed By: #### L 100.0100, L500.2500 ####[facility] [address] [place], [address] Chloride [Moles/Vol] 105 mmol/L Normal 98-108 [facility] Comment on above: Performed By: #### L 100.0100, L500.2500 ####[facility] [address] [place], [address] CO2 [Moles/Vol] 23.2 mmol/L Normal 21.0-32.0 [facility] Comment on above: Performed By: #### L 100.0100, L500.2500 ####[facility] [address] [place], [address] Creatinine [Mass/Vol] 1.17 mg/dL Normal 0.70-1.[address] [facility] Comment on above: Performed By: #### L 100.0100, L500.2500 ####[facility] [address] [place], [address] ECRCL 33.06 ml/min Low 50-250 [facility] Comment on above: Performed By: #### L 100.0100, L500.2500 ####[facility] [address] [place], [address] GAP 8 Normal 5-15 [facility] Comment on above: Performed By: #### L 100.0100, L500.2500 ####[facility] [address] [place], [address] GFR/1.73 sq M.predicted among non-blacks MDRD (S/P/Bld) [Vol rate/Area] 53 mL/min/{1.73_m2} Low >60 [facility] Comment on above: Result Comment: mL/m in/1.73m2 CKD-EPI Creatinine Equation (2020) Performed By: #### L 100.0100, L500.2500 ####[facility] [address] [place], [address] Glucose [Mass/Vol] 106 mg/dL High 70-99 [facility] Comment on above: Performed By: #### L 100.0100, L500.2500 ####[facility] [address] [place], [address] Potassium [Moles/Vol] 3.7 mmol/L Normal 3.3-5.[address] [facility] Comment on above: Performed By: #### L 100.0100, L500.2500 ####[facility] [address] [place], [address] Sodium [Moles/Vol] 136 mmol/L Normal 133-145 [facility] Comment on above: Performed By: #### L 100.0100, L500.2500 ####[facility] [address] [place], [address] Urea nitrogen [Mass/Vol] 21 mg/dL High 4-19 [facility] Comment on above: Performed By: #### L 100.0100, L500.2500 ####[facility] [address] [place], [address] Bedside Glucoseon 08-10-2024 FINGERSTICK GLU 45 mg/dL Low 74-106 [facility] Comment on above: Result Comment: LUIZA DIAZ OF PATIENT CARE PER NURSING PROTOCOL Performed By: #### L 501.080 ####[facility] [address] [place], [address] CBC W/Diff, Automatedon 07-27 Absolute Lymph 0.58 X10 3/uL Low 0.83-4.51 [facility] Comment on above: Performed By: #### L 100.0100, L500.2500 ####[facility] [address] [place], [address] Absolute Neut 5.6 X10 3/uL Normal 2.0-7.7 [facility] Comment on above: Performed By: #### L 100.0100, L500.2500 ####[facility] [address] [place], [address] Basophils/100 WBC (Bld) 1.1 % High 0-1 [facility] Comment on above: Performed By: #### L 100.0100, L500.2500 ####[facility] [address] [place], [address] Eosinophils/100 WBC (Bld) 3.0 % Normal 0-5 [facility] Comment on above: Performed By: #### L 100.0100, L500.2500 ####[facility] [address] [place], [address] Erythrocyte distribution width (RBC) [Ratio] 19.4 % High 11.6-14.6 [facility] Comment on above: Performed By: #### L 100.0100, L500.2500 ####[facility] [address], [address] Hematocrit (Bld) [Volume fraction] 29.4 % Low 37-47 [facility] Comment on above: Performed By: #### L 100.0100, L500.2500 ####[facility] [address] [place], [address] Hemoglobin (Bld) [Mass/Vol] 8.8 g/dL Low 12.0-15.0 [facility] Comment on above: Performed By: #### L 100.0100, L500.2500 ####[facility] [address] [place], [address] IG% 1.400 High 0.0-0.9 [facility] Comment on above: Result Comment: IG% - Immature Granulocytes (promyelocytes, myelocytes andmetamyelocytes) > 1% indicates that a LEFT SHIFT is Present. Performed By: #### L 100.0100, L500.2500 ####[facility] [address] [place], [address] Lymphocytes/100 WBC (Bld) 8.3 % Low 19-41 [facility] Comment on above: Performed By: #### L 100.0100, L500.2500 ####[facility] [address] [place], [address] MCH (RBC) [Entitic mass] 26.8 pg Low 27.0-32.0 [facility] Comment on above: Performed By: #### L 100.0100, L500.2500 ####[facility] [address] [place], [address] MCHC (RBC) [Mass/Vol] 29.9 g/dL Low 32-[address] [facility] Comment on above: Performed By: #### L 100.0100, L500.2500 ####[facility] [address] [place], [address] MCV (RBC) [Entitic vol] 89.6 fL Normal 81-99 [facility] Comment on above: Performed By: #### L 100.0100, L500.2500 ####[facility] [address] [place], [address] Monocytes/100 WBC (Bld) 5.2 % Normal 0-10 [facility] Comment on above: Performed By: #### L 100.0100, L500.2500 ####[facility] [address] [place], [address] Neutrophils/100 WBC (Bld) 81.0 % High 47-70 [facility] Comment on above: Performed By: #### L 100.0100, L500.2500 ####[facility] [address] [place], [address] Nucleated RBC (Bld) [#/Vol] 0 10*3/uL Normal 0-5 [facility] Comment on above: Performed By: #### L 100.0100, L500.2500 ####[facility] [address] [place], [address] Platelet mean volume (Bld) [Entitic vol] 10.0 fL Normal 6.2-12.0 [facility] Comment on above: Performed By: #### L 100.0100, L500.2500 ####[facility] [address] [place], [address] Platelets (Bld) [#/Vol] 125 10*3/uL Low 150-450 [facility] Comment on above: Performed By: #### L 100.0100, L500.2500 ####[facility] [address] [place], [address] RBC (Bld) [#/Vol] 3.28 10*6/uL Low 4.2-5.4 [facility] Comment on above: Performed By: #### L 100.0100, L500.2500 ####[facility] [address] [place], [address] RDW SD 63.1 fl High 35.1-43.9 [facility] Comment on above: Performed By: #### L 100.0100, L500.2500 ####[facility] [address] [place], [address] WBC (Bld) [#/Vol] 7.0 10*3/uL Normal 4.4-11.0 [facility] Comment on above: Performed By: #### L 100.0100, L500.2500 ####[facility] [address] [place], [address] Glucoseon 08-10-2024 Glucose [Mass/Vol] 139 mg/dL High 70-99 [facility] Comment on above: Performed By: #### L 501.0100 ####[facility] [address] [place], [address] Glucose [Mass/Vol] 135 mg/dL High 70-99 [facility] Comment on above: Performed By: #### L 501.0100 ####[facility] [address] [place], [address] Basic Metabolic Profile (BMP )on 08-09-2024 BUN/CRE 20.7 RATIO High 10- [facility] Comment on above: Performed By: #### L 100.0100, L500.2500 ####[facility] [address] [place], [address] Calcium [Mass/Vol] 7.4 mg/dL Low 7.6-11.0 [facility] Comment on above: Performed By: #### L 100.0100, L500.2500 ####[facility] [address] [place], [address] Chloride [Moles/Vol] 105 mmol/L Normal 98-108 [facility] Comment on above: Performed By: #### L 100.0100, L500.2500 ####[facility] [address] [place], [address] CO2 [Moles/Vol] 20.7 mmol/L Low 21.0-32.0 [facility] Comment on above: Performed By: #### L 100.0100, L500.2500 ####[facility] [address] [place], [address] Creatinine [Mass/Vol] 1.43 mg/dL High 0.70-1.[address] [facility] Comment on above: Performed By: #### L 100.0100, L500.2500 ####[facility] [address] [place], [address] ECRCL 27.63 ml/min Low 50-250 [facility] Comment on above: Performed By: #### L 100.0100, L500.2500 ####[facility] [address] [place], [address] GAP 9 Normal 5-15 [facility] Comment on above: Performed By: #### L 100.0100, L500.2500 ####[facility] [address] [place], [address] GFR/1.73 sq M.predicted among non-blacks MDRD (S/P/Bld) [Vol rate/Area] 41 mL/min/{1.73_m2} Low >60 [facility] Comment on above: Result Comment: mL/m in/1.73m2 CKD-EPI Creatinine Equation (2020) Performed By: #### L 100.0100, L500.2500 ####[facility] [address] [place], [address] Glucose [Mass/Vol] 83 mg/dL Normal 70-99 [facility] Comment on above: Performed By: #### L 100.0100, L500.2500 ####[facility] [address] [place], [address] Potassium [Moles/Vol] 3.9 mmol/L Normal 3.3-5.[address] [facility] Comment on above: Performed By: #### L 100.0100, L500.2500 ####[facility] [address] [place], [address] Sodium [Moles/Vol] 134 mmol/L Normal 133-145 [facility] Comment on above: Performed By: #### L 100.0100, L500.2500 ####[facility] [address] [place], [address] Urea nitrogen [Mass/Vol] 30 mg/dL High 4-19 [facility] Comment on above: Performed By: #### L 100.0100, L500.2500 ####[facility] [address] [place], [address] Bedside Glucoseon 08-09-2024 FINGERSTICK GLU 77 mg/dL Normal 74-106 [facility] Comment on above: Result Comment: LUIZA DIAZ OF PATIENT CARE PER NURSING PROTOCOL Performed By: #### L 501.080 ####[facility] [address] [place], [address] CBC W/Diff, Automatedon 07-27 Absolute Lymph 0.38 X10 3/uL Low 0.83-4.51 [facility] Comment on above: Performed By: #### L 100.0100, L500.2500 ####[facility] [address] [place], [address] Absolute Neut 5.4 X10 3/uL Normal 2.0-7.7 [facility] Comment on above: Performed By: #### L 100.0100, L500.2500 ####[facility] [address] [place], [address] Basophils/100 WBC (Bld) 0.8 % Normal 0-1 [facility] Comment on above: Performed By: #### L 100.0100, L500.2500 ####[facility] [address] [place], [address] Eosinophils/100 WBC (Bld) 1.9 % Normal 0-5 [facility] Comment on above: Performed By: #### L 100.0100, L500.2500 ####[facility] [address] [place], [address] Erythrocyte distribution width (RBC) [Ratio] 18.8 % High 11.6-14.6 [facility] Comment on above: Performed By: #### L 100.0100, L500.2500 ####[facility] [address] [place], [address] Hematocrit (Bld) [Volume fraction] 27.4 % Low 37-47 [facility] Comment on above: Performed By: #### L 100.0100, L500.2500 ####[facility] [address] [place], [address] Hemoglobin (Bld) [Mass/Vol] 8.3 g/dL Low 12.0-15.0 [facility] Comment on above: Performed By: #### L 100.0100, L500.2500 ####[facility] [address] [place], [address] IG% 2.000 High 0.0-0.9 [facility] Comment on above: Result Comment: IG% - Immature Granulocytes (promyelocytes, myelocytes andmetamyelocytes) > 1% indicates that a LEFT SHIFT is Present. Performed By: #### L 100.0100, L500.2500 ####[facility] [address] [place], [address] Lymphocytes/100 WBC (Bld) 6.0 % Low 19-41 [facility] Comment on above: Performed By: #### L 100.0100, L500.2500 ####[facility] [address], [address] MCH (RBC) [Entitic mass] 26.7 pg Low 27.0-32.0 [facility] Comment on above: Performed By: #### L 100.0100, L500.2500 ####[facility] [address] [place], [address] MCHC (RBC) [Mass/Vol] 30.3 g/dL Low 32-[address] [facility] Comment on above: Performed By: #### L 100.0100, L500.2500 ####[facility] [address] [place], [address] MCV (RBC) [Entitic vol] 88.1 fL Normal 81-99 [facility] Comment on above: Performed By: #### L 100.0100, L500.2500 ####[facility] [address] [place], [address] Monocytes/100 WBC (Bld) 5.0 % Normal 0-10 [facility] Comment on above: Performed By: #### L 100.0100, L500.2500 ####[facility] [address] [place], [address] Neutrophils/100 WBC (Bld) 84.3 % High 47-70 [facility] Comment on above: Performed By: #### L 100.0100, L500.2500 ####[facility] [address], [address] Nucleated RBC (Bld) [#/Vol] 0 10*3/uL Normal 0-5 [facility] Comment on above: Performed By: #### L 100.0100, L500.2500 ####[facility] [address] [place], [address] Platelet mean volume (Bld) [Entitic vol] 10.3 fL Normal 6.2-12.0 [facility] Comment on above: Performed By: #### L 100.0100, L500.2500 ####[facility] [address] [place], [address] Platelets (Bld) [#/Vol] 111 10*3/uL Low 150-450 [facility] Comment on above: Performed By: #### L 100.0100, L500.2500 ####[facility] [address] [place], [address] RBC (Bld) [#/Vol] 3.11 10*6/uL Low 4.2-5.4 [facility] Comment on above: Performed By: #### L 100.0100, L500.2500 ####[facility] [address] [place], [address] RDW SD 60.7 fl High 35.1-43.9 [facility] Comment on above: Performed By: #### L 100.0100, L500.2500 ####[facility] [address] [place], [address] WBC (Bld) [#/Vol] 6.4 10*3/uL Normal 4.4-11.0 [facility] Comment on above: Performed By: #### L 100.0100, L500.2500 ####[facility] [address] [place], [address] Glucoseon 08-09-2024 Glucose [Mass/Vol] 108 mg/dL High 70-99 [facility] Comment on above: Order Comment: Comme nts: blood sugar monitoring, poor peripheral perfusion Performed By: #### L 501.0100 ####[facility] [address] [place], [address] Glucose [Mass/Vol] 100 mg/dL High 70-99 [facility] Comment on above: Order Comment: Comme nts: Glucose mon q6h, poor perfusion for finger stick Performed By: #### L 501.0100 ####[facility] [address] [place], [address] Abdomen/Pelvis WITH Contrast on 08-08-2024 Abdomen/Pelvis WITH Contrast Normal [facility] Basic Metabolic Profile (BMP )on 08-08-2024 BUN/CRE 24.5 RATIO High 10-20 [facility] Comment on above: Performed By: #### L 100.0100, L500.2500 ####[facility] [address] [place], [address] Calcium [Mass/Vol] 7.7 mg/dL Normal 7.6-11.0 [facility] Comment on above: Performed By: #### L 100.0100, L500.2500 ####[facility] [address] [place], [address] Chloride [Moles/Vol] 104 mmol/L Normal 98-108 [facility] Comment on above: Performed By: #### L 100.0100, L500.2500 ####[facility] [address] [place], [address] CO2 [Moles/Vol] 22.6 mmol/L Normal 21.0-32.0 [facility] Comment on above: Performed By: #### L 100.0100, L500.2500 ####[facility] [address] [place], [address] Creatinine [Mass/Vol] 1.31 mg/dL High 0.70-1.[address] [facility] Comment on above: Performed By: #### L 100.0100, L500.2500 ####[facility] [address] [place], [address] ECRCL 30.16 ml/min Low 50-250 [facility] Comment on above: Performed By: #### L 100.0100, L500.2500 ####[facility] [address] [place], [address] GAP 9 Normal 5-15 [facility] Comment on above: Performed By: #### L 100.0100, L500.2500 ####[facility] [address] [place], [address] GFR/1.73 sq M.predicted among non-blacks MDRD (S/P/Bld) [Vol rate/Area] 46 mL/min/{1.73_m2} Low >60 [facility] Comment on above: Result Comment: mL/m in/1.73m2 CKD-EPI Creatinine Equation (2020) Performed By: #### L 100.0100, L500.2500 ####[facility] [address] [place], [address] Glucose [Mass/Vol] 89 mg/dL Normal 70-99 [facility] Comment on above: Performed By: #### L 100.0100, L500.2500 ####[facility] [address] [place], [address] Potassium [Moles/Vol] 3.8 mmol/L Normal 3.3-5.[address] [facility] Comment on above: Performed By: #### L 100.0100, L500.2500 ####[facility] [address] [place], [address] Sodium [Moles/Vol] 135 mmol/L Normal 133-145 [facility] Comment on above: Performed By: #### L 100.0100, L500.2500 ####[facility] [address] [place], [address] Urea nitrogen [Mass/Vol] 32 mg/dL High 4-19 [facility] Comment on above: Performed By: #### L 100.0100, L500.2500 ####[facility] [address] [place], [address] Bedside Glucoseon 08-08-2024 FINGERSTICK GLU 84 mg/dL Normal 74-106 [facility] Comment on above: Result Comment: LUIZA GEMENT OF PATIENT CARE PER NURSING PROTOCOL Performed By: #### L 501.080 ####[facility] [address] [place], [address] FINGERSTICK GLU 136 mg/dL High 74-106 [facility] Comment on above: Result Comment: LUIZA GEMENT OF PATIENT CARE PER NURSING PROTOCOL Performed By: #### L 501.080 ####[facility] [address] [place], [address] FINGERSTICK GLU 53 mg/dL Low 74-106 [facility] Comment on above: Result Comment: LUIZA GEMENT OF PATIENT CARE PER NURSING PROTOCOL Performed By: #### L 501.080 ####[facility] [address] [place], [address] FINGERSTICK GLU 55 mg/dL Low 74-106 [facility] Comment on above: Result Comment: LUIZA GEMENT OF PATIENT CARE PER NURSING PROTOCOL Performed By: #### L 501.080 ####[facility] [address] [place], [address] CBC W/Diff, Automatedon 07-27 Absolute Lymph 0.67 X10 3/uL Low 0.83-4.51 [facility] Comment on above: Performed By: #### L 100.0100, L500.2500 ####[facility] [address] [place], [address] Absolute Neut 7.2 X10 3/uL Normal 2.0-7.7 [facility] Comment on above: Performed By: #### L 100.0100, L500.2500 ####[facility] [address] [place], [address] Basophils/100 WBC (Bld) 0.6 % Normal 0-1 [facility] Comment on above: Performed By: #### L 100.0100, L500.2500 ####[facility] [address] [place], [address] Eosinophils/100 WBC (Bld) 1.2 % Normal 0-5 [facility] Comment on above: Performed By: #### L 100.0100, L500.2500 ####[facility] [address] [place], [address] Erythrocyte distribution width (RBC) [Ratio] 18.6 % High 11.6-14.6 [facility] Comment on above: Performed By: #### L 100.0100, L500.2500 ####[facility] [address] [place], [address] Hematocrit (Bld) [Volume fraction] 27.8 % Low 37-47 [facility] Comment on above: Performed By: #### L 100.0100, L500.2500 ####[facility] [address] [place], [address] Hemoglobin (Bld) [Mass/Vol] 8.6 g/dL Low 12.0-15.0 [facility] Comment on above: Performed By: #### L 100.0100, L500.2500 ####[facility] [address] [place], [address] IG% 1.400 High 0.0-0.9 [facility] Comment on above: Result Comment: IG% - Immature Granulocytes (promyelocytes, myelocytes andmetamyelocytes) > 1% indicates that a LEFT SHIFT is Present. Performed By: #### L 100.0100, L500.2500 ####[facility] [address] [place], [address] Lymphocytes/100 WBC (Bld) 7.9 % Low 19-41 [facility] Comment on above: Performed By: #### L 100.0100, L500.2500 ####[facility] [address] [place], [address] MCH (RBC) [Entitic mass] 27.1 pg Normal 27.0-32.0 [facility] Comment on above: Performed By: #### L 100.0100, L500.2500 ####[facility] [address] [place], [address] MCHC (RBC) [Mass/Vol] 30.9 g/dL Low 32-[address] [facility] Comment on above: Performed By: #### L 100.0100, L500.2500 ####[facility] [address] [place], [address] MCV (RBC) [Entitic vol] 87.7 fL Normal 81-99 [facility] Comment on above: Performed By: #### L 100.0100, L500.2500 ####[facility] [address] [place], [address] Monocytes/100 WBC (Bld) 3.8 % Normal 0-10 [facility] Comment on above: Performed By: #### L 100.0100, L500.2500 ####[facility] [address] [place], [address] Neutrophils/100 WBC (Bld) 85.1 % High 47-70 [facility] Comment on above: Performed By: #### L 100.0100, L500.2500 ####[facility] [address] [place] [place], [address] Nucleated RBC (Bld) [#/Vol] 0 10*3/uL Normal 0-5 [facility] Comment on above: Performed By: #### L 100.0100, L500.2500 ####[facility] [address] [place], [address] Platelet mean volume (Bld) [Entitic vol] 9.5 fL Normal 6.2-12.0 [facility] Comment on above: Performed By: #### L 100.0100, L500.2500 ####[facility] [address] [place], [address] Platelets (Bld) [#/Vol] 147 10*3/uL Low 150-450 [facility] Comment on above: Performed By: #### L 100.0100, L500.2500 ####[facility] [address] [place], [address] RBC (Bld) [#/Vol] 3.17 10*6/uL Low 4.2-5.4 [facility] Comment on above: Performed By: #### L 100.0100, L500.2500 ####[facility] [address] [place], [address] RDW SD 59.1 fl High 35.1-43.9 [facility] Comment on above: Performed By: #### L 100.0100, L500.2500 ####[facility] [address] [place], [address] WBC (Bld) [#/Vol] 8.5 10*3/uL Normal 4.4-11.0 [facility] Comment on above: Performed By: #### L 100.0100, L500.2500 ####[facility] [address] [place], [address] L3410.9998on 08-08-2024 [facility] Misc. COMMENT Normal . [facility] Comment on above: Order Comment: SERUM /[id number] C Result Comment: Test Ordered: [id number] Cystatin CCystatin C 2.88 [H ] mg/L CB Reference Range: 0.72-1.16Performed at: - [facility] [address] [place], [place] [id number] Director: Manjinder Babb PhD, Phone: [phone] Performed By: #### L 3410.9998 ####[facility] [address] [place], [address] Basic Metabolic Profile (BMP )on 08-07-2024 BUN/CRE 29.1 RATIO High 10-20 [facility] Comment on above: Performed By: #### L 100.0100, L500.2500 ####[facility] [address] [place], [address] Calcium [Mass/Vol] 7.5 mg/dL Low 7.6-11.0 [facility] Comment on above: Performed By: #### L 100.0100, L500.2500 ####[facility] [address] [place], [address] Chloride [Moles/Vol] 103 mmol/L Normal 98-108 [facility] Comment on above: Performed By: #### L 100.0100, L500.2500 ####[facility] [address] [place], [address] CO2 [Moles/Vol] 19.3 mmol/L Low 21.0-32.0 [facility] Comment on above: Performed By: #### L 100.0100, L500.2500 ####[facility] [address] [place], [address] Creatinine [Mass/Vol] 1.50 mg/dL High 0.70-1.[address] [facility] Comment on above: Performed By: #### L 100.0100, L500.2500 ####[facility] [address] [place], [address] ECRCL 27.32 ml/min Low 50-250 [facility] Comment on above: Performed By: #### L 100.0100, L500.2500 ####[facility] [address] [place], [address] GAP 11 Normal 5-15 [facility] Comment on above: Performed By: #### L 100.0100, L500.2500 ####[facility] [address] [place], [address] GFR/1.73 sq M.predicted among non-blacks MDRD (S/P/Bld) [Vol rate/Area] 39 mL/min/{1.73_m2} Low >60 [facility] Comment on above: Result Comment: mL/m in/1.73m2 CKD-EPI Creatinine Equation (2020) Performed By: #### L 100.0100, L500.2500 ####[facility] [address] [place], [address] Glucose [Mass/Vol] 84 mg/dL Normal 70-99 [facility] Comment on above: Performed By: #### L 100.0100, L500.2500 ####[facility] [address] [place], [address] Potassium [Moles/Vol] 3.7 mmol/L Normal 3.3-5.[address] [facility] Comment on above: Performed By: #### L 100.0100, L500.2500 ####[facility] [address] [place], [address] Sodium [Moles/Vol] 133 mmol/L Normal 133-145 [facility] Comment on above: Performed By: #### L 100.0100, L500.2500 ####[facility] [address] [place], [address] Urea nitrogen [Mass/Vol] 44 mg/dL High 4-19 [facility] Comment on above: Performed By: #### L 100.0100, L500.2500 ####[facility] [address] [place], [address] Bedside Glucoseon 08-07-2024 FINGERSTICK GLU 130 mg/dL High 74-106 [facility] Comment on above: Result Comment: LUIZA GEMENT OF PATIENT CARE PER NURSING PROTOCOL Performed By: #### L 501.080 ####[facility] [address] [place], [address] FINGERSTICK GLU 95 mg/dL Normal 74-106 [facility] Comment on above: Result Comment: LUIZA GEMENT OF PATIENT CARE PER NURSING PROTOCOL Performed By: #### L 501.080 ####[facility] [address] [place], [address] FINGERSTICK GLU 76 mg/dL Normal 74-106 [facility] Comment on above: Result Comment: LUIZA GEMENT OF PATIENT CARE PER NURSING PROTOCOL Performed By: #### L 501.080 ####[facility] [address] [place], [address] FINGERSTICK GLU 79 mg/dL Normal 74-106 [facility] Comment on above: Result Comment: LUIZA GEMENT OF PATIENT CARE PER NURSING PROTOCOL Performed By: #### L 501.080 ####[facility] [address] [place], [address] CBC W/Diff, Automatedon 07-27 Absolute Lymph 0.82 X10 3/uL Low 0.83-4.51 [facility] Comment on above: Performed By: #### L 100.0100, L500.2500 ####[facility] [address] [place], [address] Absolute Neut 9.6 X10 3/uL High 2.0-7.7 [facility] Comment on above: Performed By: #### L 100.0100, L500.2500 ####[facility] [address] [place], [address] Basophils/100 WBC (Bld) 0.5 % Normal 0-1 [facility] Comment on above: Performed By: #### L 100.0100, L500.2500 ####[facility] [address] [place], [address] Eosinophils/100 WBC (Bld) 1.3 % Normal 0-5 [facility] Comment on above: Performed By: #### L 100.0100, L500.2500 ####[facility] [address] [place], [address] Erythrocyte distribution width (RBC) [Ratio] 18.6 % High 11.6-14.6 [facility] Comment on above: Performed By: #### L 100.0100, L500.2500 ####[facility] [address] [place], [address] Hematocrit (Bld) [Volume fraction] 29.4 % Low 37-47 [facility] Comment on above: Performed By: #### L 100.0100, L500.2500 ####[facility] [address] [place], [address] Hemoglobin (Bld) [Mass/Vol] 9.1 g/dL Low 12.0-15.0 [facility] Comment on above: Performed By: #### L 100.0100, L500.2500 ####[facility] [address] [place], [address] IG% 2.100 High 0.0-0.9 [facility] Comment on above: Result Comment: IG% - Immature Granulocytes (promyelocytes, myelocytes andmetamyelocytes) > 1% indicates that a LEFT SHIFT is Present. Performed By: #### L 100.0100, L500.2500 ####[facility] [address] [place], [address] Lymphocytes/100 WBC (Bld) 7.3 % Low 19-41 [facility] Comment on above: Performed By: #### L 100.0100, L500.2500 ####[facility] [address] [place], [address] MCH (RBC) [Entitic mass] 27.1 pg Normal 27.0-32.0 [facility] Comment on above: Performed By: #### L 100.0100, L500.2500 ####[facility] [address] [place], [address] MCHC (RBC) [Mass/Vol] 31.0 g/dL Low 32-[address] [facility] Comment on above: Performed By: #### L 100.0100, L500.2500 ####[facility] [address] [place], [address] MCV (RBC) [Entitic vol] 87.5 fL Normal 81-99 [facility] Comment on above: Performed By: #### L 100.0100, L500.2500 ####[facility] [address] [place], [address] Monocytes/100 WBC (Bld) 3.5 % Normal 0-10 [facility] Comment on above: Performed By: #### L 100.0100, L500.2500 ####[facility] [address] [place], [address] Neutrophils/100 WBC (Bld) 85.3 % High 47-70 [facility] Comment on above: Performed By: #### L 100.0100, L500.2500 ####[facility] [address] [place], [address] Nucleated RBC (Bld) [#/Vol] 0 10*3/uL Normal 0-5 [facility] Comment on above: Performed By: #### L 100.0100, L500.2500 ####[facility] [address] [place], [address] Platelet mean volume (Bld) [Entitic vol] 9.8 fL Normal 6.2-12.0 [facility] Comment on above: Performed By: #### L 100.0100, L500.2500 ####[facility] [address] [place], [address] Platelets (Bld) [#/Vol] 163 10*3/uL Normal 150-450 [facility] Comment on above: Performed By: #### L 100.0100, L500.2500 ####[facility] [address] [place], [address] RBC (Bld) [#/Vol] 3.36 10*6/uL Low 4.2-5.4 [facility] Comment on above: Performed By: #### L 100.0100, L500.2500 ####[facility] [address] [place], [address] RDW SD 57.8 fl High 35.1-43.9 [facility] Comment on above: Performed By: #### L 100.0100, L500.2500 ####[facility] [address] [place], [address] WBC (Bld) [#/Vol] 11.2 10*3/uL High 4.4-11.0 [facility] Comment on above: Performed By: #### L 100.0100, L500.2500 ####[facility] [address] [place], [address] CDIFF (PCR)on 08-07-2024 CDIFF Normal [facility] Comment on above: Performed By: #### M 100.9691, M100.8210 ####[facility] [address] [place], [address] Clostridium Diff Toxin/Agon 08-07-2024 CDIFF (EIA) Normal [facility] Comment on above: Performed By: #### M 100.9696, M100.8757 ####[facility] [address] [place], [address] Clostridium difficile detect ion by polymerase chain reactionOrdered By: Judd Galvin on 08-07-2024 C. difficile DNA MOISES+probe Ql (Unsp spec) [facility] Glucoseon 08-07-2024 Glucose [Mass/Vol] 127 mg/dL High 70-99 [facility] Comment on above: Order Comment: Comme nts: hypoglycemia Performed By: #### L 501.0100 ####[facility] [address] [place], [address] Stool Clostridium difficile detectionOrdered By: Judd Galvin on 08-07-2024 C. difficile Ql (Stl) [facility] Abdomen/Pelvis WITH Contrast on 08-06-2024 Abdomen/Pelvis WITH Contrast Normal [facility] Basic Metabolic Profile (BMP )on 08-06-2024 BUN/CRE 29.8 RATIO High 10-20 [facility] Comment on above: Performed By: #### L 100.0100, L500.2500 ####[facility] [address] [place], [address] Calcium [Mass/Vol] 7.5 mg/dL Low 7.6-11.0 [facility] Comment on above: Performed By: #### L 100.0100, L500.2500 ####[facility] [address] [place], [address] Chloride [Moles/Vol] 102 mmol/L Normal 98-108 [facility] Comment on above: Performed By: #### L 100.0100, L500.2500 ####[facility] [address] [place], [address] CO2 [Moles/Vol] 21.2 mmol/L Normal 21.0-32.0 [facility] Comment on above: Performed By: #### L 100.0100, L500.2500 ####[facility] [address] [place], [address] Creatinine [Mass/Vol] 1.27 mg/dL High 0.70-1.[address] [facility] Comment on above: Performed By: #### L 100.0100, L500.2500 ####[facility] [address] [place], [address] ECRCL 32.27 ml/min Low 50-250 [facility] Comment on above: Performed By: #### L 100.0100, L500.2500 ####[facility] [address] [place], [address] GAP 10 Normal 5-15 [facility] Comment on above: Performed By: #### L 100.0100, L500.2500 ####[facility] [address] [place], [address] GFR/1.73 sq M.predicted among non-blacks MDRD (S/P/Bld) [Vol rate/Area] 48 mL/min/{1.73_m2} Low >60 [facility] Comment on above: Result Comment: mL/m in/1.73m2 CKD-EPI Creatinine Equation (2020) Performed By: #### L 100.0100, L500.2500 ####[facility] [address] [place], [address] Glucose [Mass/Vol] 94 mg/dL Normal 70-99 [facility] Comment on above: Performed By: #### L 100.0100, L500.2500 ####[facility] [address] [place], [address] Potassium [Moles/Vol] 3.7 mmol/L Normal 3.3-5.[address] [facility] Comment on above: Performed By: #### L 100.0100, L500.2500 ####[facility] [address] [place], [address] Sodium [Moles/Vol] 133 mmol/L Normal 133-145 [facility] Comment on above: Performed By: #### L 100.0100, L500.2500 ####[facility] [address] [place], [address] Urea nitrogen [Mass/Vol] 38 mg/dL High 4-19 [facility] Comment on above: Performed By: #### L 100.0100, L500.2500 ####[facility] [address] [place], [address] BUN Normal 4-19 [facility] Comment on above: Result Comment: Canc elled via OM: Order cancelled - Patient discharged Performed By: #### L 100.0100, L500.2500 ####[facility] [address] [place], [address] BUN/CRE Normal 10-20 [facility] Comment on above: Result Comment: Canc elled via OM: Order cancelled - Patient discharged Performed By: #### L 100.0100, L500.2500 ####[facility] [address] [place], [address] Calcium Normal 7.6-11.0 [facility] Comment on above: Result Comment: Canc elled via OM: Order cancelled - Patient discharged Performed By: #### L 100.0100, L500.2500 ####[facility] [address] [place], [address] CL Normal 98-107 [facility] Comment on above: Result Comment: Canc elled via OM: Order cancelled - Patient discharged Performed By: #### L 100.0100, L500.2500 ####[facility] [address] [place], [address] CO2 Normal 21.0-32.0 [facility] Comment on above: Result Comment: Canc elled via OM: Order cancelled - Patient discharged Performed By: #### L 100.0100, L500.2500 ####[facility] [address] [place], [address] CREAT,SERUM Normal 0.70-1.20 [facility] Comment on above: Result Comment: Canc elled via OM: Order cancelled - Patient discharged Performed By: #### L 100.0100, L500.2500 ####[facility] [address] [place], [address] eGFR Normal >60 [facility] Comment on above: Result Comment: Canc elled via OM: Order cancelled - Patient discharged Performed By: #### L 100.0100, L500.2500 ####[facility] [address] [place], [address] GAP Normal 5-15 [facility] Comment on above: Result Comment: Canc elled via OM: Order cancelled - Patient discharged Performed By: #### L 100.0100, L500.2500 ####[facility] [address] [place], [address] GLU Normal 70-99 [facility] Comment on above: Result Comment: Canc elled via OM: Order cancelled - Patient discharged Performed By: #### L 100.0100, L500.2500 ####[facility] [address] [place], [address] Potassium Normal 3.5-5.1 [facility] Comment on above: Result Comment: Canc elled via OM: Order cancelled - Patient discharged Performed By: #### L 100.0100, L500.2500 ####[facility] [address] [place], [address] Basic Metabolic Profile (BMP) Normal 136-145 [facility] Comment on above: Result Comment: Canc elled via OM: Order cancelled - Patient discharged Performed By: #### L 100.0100, L500.2500 ####[facility] [address] [place], [address] Bedside Glucoseon 08-06-2024 FINGERSTICK GLU 108 mg/dL High 74-106 [facility] Comment on above: Result Comment: LUIZA GEMENT OF PATIENT CARE PER NURSING PROTOCOL Performed By: #### L 501.080 ####[facility] [address] [place], [address] FINGERSTICK GLU 77 mg/dL Normal 74-106 [facility] Comment on above: Result Comment: LUIZA GEMENT OF PATIENT CARE PER NURSING PROTOCOL Performed By: #### L 501.080 ####[facility] [address] [place], [address] FINGERSTICK GLU 73 mg/dL Low 74-106 [facility] Comment on above: Result Comment: LUIZA GEMENT OF PATIENT CARE PER NURSING PROTOCOL Performed By: #### L 501.080 ####[facility] [address] [place], [address] FINGERSTICK GLU 71 mg/dL Low 74-106 [facility] Comment on above: Result Comment: LUIZA GEMENT OF PATIENT CARE PER NURSING PROTOCOL Performed By: #### L 501.080 ####[facility] [address] [place], [address] FINGERSTICK GLU 93 mg/dL Normal 74-106 [facility] Comment on above: Result Comment: LUIZA GEMENT OF PATIENT CARE PER NURSING PROTOCOL Performed By: #### L 501.080 ####[facility] [address] [place], [address] FINGERSTICK GLU 74 mg/dL Normal 74-106 [facility] Comment on above: Result Comment: LUIZA GEMENT OF PATIENT CARE PER NURSING PROTOCOL Performed By: #### L 501.080 ####[facility] [address] [place], [address] CBC W/Diff, Automatedon - Absolute Neut Normal 2.0-7.7 [facility] Comment on above: Result Comment: Canc elled via OM: Order cancelled - Patient discharged Performed By: #### L 100.0100, L500.2500 ####[facility] [address] [place], [address] HCT Normal 37-47 [facility] Comment on above: Result Comment: Canc elled via OM: Order cancelled - Patient discharged Performed By: #### L 100.0100, L500.2500 ####[facility] [address] [place], [address] HGB Normal 12.0-15.0 [facility] Comment on above: Result Comment: Canc elled via OM: Order cancelled - Patient discharged Performed By: #### L 100.0100, L500.2500 ####[facility] [address] [place], [address] MCH Normal 27.0-32.0 [facility] Comment on above: Result Comment: Canc elled via OM: Order cancelled - Patient discharged Performed By: #### L 100.0100, L500.2500 ####[facility] [address] [place], [address] MCHC Normal 32-36 [facility] Comment on above: Result Comment: Canc elled via OM: Order cancelled - Patient discharged Performed By: #### L 100.0100, L500.2500 ####[facility] [address] [place], [address] MCV Normal 81-99 [facility] Comment on above: Result Comment: Canc elled via OM: Order cancelled - Patient discharged Performed By: #### L 100.0100, L500.2500 ####[facility] [address] [place], [address] NEUT% Normal 47-70 [facility] Comment on above: Result Comment: Canc elled via OM: Order cancelled - Patient discharged Performed By: #### L 100.0100, L500.2500 ####[facility] [address] [place], [address] PLT Normal 150-450 [facility] Comment on above: Result Comment: Canc elled via OM: Order cancelled - Patient discharged Performed By: #### L 100.0100, L500.2500 ####[facility] [address] [place], [address] RBC Normal 4.2-5.4 [facility] Comment on above: Result Comment: Canc elled via OM: Order cancelled - Patient discharged Performed By: #### L 100.0100, L500.2500 ####[facility] [address] [place], [address] RDW CV Normal 11.6-14.6 [facility] Comment on above: Result Comment: Canc elled via OM: Order cancelled - Patient discharged Performed By: #### L 100.0100, L500.2500 ####[facility] [address] [place], [address] RDW SD Normal 35.1-43.9 [facility] Comment on above: Result Comment: Canc elled via OM: Order cancelled - Patient discharged Performed By: #### L 100.0100, L500.2500 ####[facility] [address] [place], [address] WBC Normal 4.4-11.0 [facility] Comment on above: Result Comment: Canc elled via OM: Order cancelled - Patient discharged Performed By: #### L 100.0100, L500.2500 ####[facility] [address] [place], [address] Absolute Lymph 1.00 X10 3/uL Normal 0.83-4.51 [facility] Comment on above: Performed By: #### L 100.0100, L500.2500 ####[facility] [address] [place], [address] Absolute Neut 6.5 X10 3/uL Normal 2.0-7.7 [facility] Comment on above: Performed By: #### L 100.0100, L500.2500 ####[facility] [address] [place], [address] Basophils/100 WBC (Bld) 0.9 % Normal 0-1 [facility] Comment on above: Performed By: #### L 100.0100, L500.2500 ####[facility] [address] [place], [address] Eosinophils/100 WBC (Bld) 1.5 % Normal 0-5 [facility] Comment on above: Performed By: #### L 100.0100, L500.2500 ####[facility] [address] [place], [address] Erythrocyte distribution width (RBC) [Ratio] 17.7 % High 11.6-14.6 [facility] Comment on above: Performed By: #### L 100.0100, L500.2500 ####[facility] [address] [place], [place], [address] Hematocrit (Bld) [Volume fraction] 26.8 % Low 37-47 [facility] Comment on above: Performed By: #### L 100.0100, L500.2500 ####[facility] [address] [place], [address] Hemoglobin (Bld) [Mass/Vol] 8.2 g/dL Low 12.0-15.0 [facility] Comment on above: Performed By: #### L 100.0100, L500.2500 ####[facility] [address] [place], [address] IG% 2.600 High 0.0-0.9 [facility] Comment on above: Result Comment: IG% - Immature Granulocytes (promyelocytes, myelocytes andmetamyelocytes) > 1% indicates that a LEFT SHIFT is Present. Performed By: #### L 100.0100, L500.2500 ####[facility] [address] [place], [address] Lymphocytes/100 WBC (Bld) 12.2 % Low 19-41 [facility] Comment on above: Performed By: #### L 100.0100, L500.2500 ####[facility] [address] [place], [address] MCH (RBC) [Entitic mass] 27.0 pg Normal 27.0-32.0 [facility] Comment on above: Performed By: #### L 100.0100, L500.2500 ####[facility] [address] [place], [address] MCHC (RBC) [Mass/Vol] 30.6 g/dL Low 32-[address] [facility] Comment on above: Performed By: #### L 100.0100, L500.2500 ####[facility] [address] [place], [address] MCV (RBC) [Entitic vol] 88.2 fL Normal 81-99 [facility] Comment on above: Performed By: #### L 100.0100, L500.2500 ####[facility] [address] [place], [address] Monocytes/100 WBC (Bld) 3.8 % Normal 0-10 [facility] Comment on above: Performed By: #### L 100.0100, L500.2500 ####[facility] [address] [place], [address] Neutrophils/100 WBC (Bld) 79.0 % High 47-70 [facility] Comment on above: Performed By: #### L 100.0100, L500.2500 ####[facility] [address] [place], [address] Nucleated RBC (Bld) [#/Vol] 0 10*3/uL Normal 0-5 [facility] Comment on above: Performed By: #### L 100.0100, L500.2500 ####[facility] [address] [place], [address] Platelet mean volume (Bld) [Entitic vol] 9.3 fL Normal 6.2-12.0 [facility] Comment on above: Performed By: #### L 100.0100, L500.2500 ####[facility] [address] [place], [address] Platelets (Bld) [#/Vol] 167 10*3/uL Normal 150-450 [facility] Comment on above: Performed By: #### L 100.0100, L500.2500 ####[facility] [address] [place], [address] RBC (Bld) [#/Vol] 3.04 10*6/uL Low 4.2-5.4 [facility] Comment on above: Performed By: #### L 100.0100, L500.2500 ####[facility] [address] [place], [address] RDW SD 56.7 fl High 35.1-43.9 [facility] Comment on above: Performed By: #### L 100.0100, L500.2500 ####[facility] [address] [place], [address] WBC (Bld) [#/Vol] 8.2 10*3/uL Normal 4.4-11.0 [facility] Comment on above: Performed By: #### L 100.0100, L500.2500 ####[facility] [address] [place], [address] Basic Metabolic Profile (BMP )on 08-05-2024 BUN/CRE 32.7 RATIO High 10-20 [facility] Comment on above: Performed By: #### L 100.0100, L500.2500 ####[facility] [address] [place], [address] Calcium [Mass/Vol] 7.9 mg/dL Normal 7.6-11.0 [facility] Comment on above: Performed By: #### L 100.0100, L500.2500 ####[facility] [address] [place], [address] Chloride [Moles/Vol] 102 mmol/L Normal 98-108 [facility] Comment on above: Performed By: #### L 100.0100, L500.2500 ####[facility] [address] [place], [address] CO2 [Moles/Vol] 20.3 mmol/L Low 21.0-32.0 [facility] Comment on above: Performed By: #### L 100.0100, L500.2500 ####[facility] [address] [place], [address] Creatinine [Mass/Vol] 1.69 mg/dL High 0.70-1.[address] [facility] Comment on above: Performed By: #### L 100.0100, L500.2500 ####[facility] [address] [place], [address] ECRCL 25.06 ml/min Low 50-250 [facility] Comment on above: Performed By: #### L 100.0100, L500.2500 ####[facility] [address] [place], [address] GAP 12 Normal 5-15 [facility] Comment on above: Performed By: #### L 100.0100, L500.2500 ####[facility] [address] [place], [address] GFR/1.73 sq M.predicted among non-blacks MDRD (S/P/Bld) [Vol rate/Area] 34 mL/min/{1.73_m2} Low >60 [facility] Comment on above: Result Comment: mL/m in/1.73m2 CKD-EPI Creatinine Equation (2020) Performed By: #### L 100.0100, L500.2500 ####[facility] [address] [place], [address] Glucose [Mass/Vol] 81 mg/dL Normal 70-99 [facility] Comment on above: Performed By: #### L 100.0100, L500.2500 ####[facility] [address] [place], [address] Potassium [Moles/Vol] 5.0 mmol/L Normal 3.3-5.[address] [facility] Comment on above: Performed By: #### L 100.0100, L500.2500 ####[facility] [address] [place], [address] Sodium [Moles/Vol] 135 mmol/L Normal 133-145 [facility] Comment on above: Performed By: #### L 100.0100, L500.2500 ####[facility] [address] [place], [address] Urea nitrogen [Mass/Vol] 55 mg/dL High 4-19 [facility] Comment on above: Performed By: #### L 100.0100, L500.2500 ####[facility] [address] [place], [address] BUN Normal -19 [facility] Comment on above: Result Comment: Canc elled via OM: Order cancelled - Patient discharged Performed By: #### L 500.2500, L100.0100 ####[facility] [address] [place], [address] BUN/CRE Normal 10-20 [facility] Comment on above: Result Comment: Canc elled via OM: Order cancelled - Patient discharged Performed By: #### L 500.2500, L100.0100 ####[facility] [address] [place], [address] Calcium Normal 7.6-11.0 [facility] Comment on above: Result Comment: Canc elled via OM: Order cancelled - Patient discharged Performed By: #### L 500.2500, L100.0100 ####[facility] [address] [place], [address] CL Normal 98-107 [facility] Comment on above: Result Comment: Canc elled via OM: Order cancelled - Patient discharged Performed By: #### L 500.2500, L100.0100 ####[facility] [address] [place], [address] CO2 Normal 21.0-32.0 [facility] Comment on above: Result Comment: Canc elled via OM: Order cancelled - Patient discharged Performed By: #### L 500.2500, L100.0100 ####[facility] [address] [place], [address] CREAT,SERUM Normal 0.70-1.20 [facility] Comment on above: Result Comment: Canc elled via OM: Order cancelled - Patient discharged Performed By: #### L 500.2500, L100.0100 ####[facility] [address] [place], [address] eGFR Normal >60 [facility] Comment on above: Result Comment: Canc elled via OM: Order cancelled - Patient discharged Performed By: #### L 500.2500, L100.0100 ####[facility] [address] [place], [address] GAP Normal 5-15 [facility] Comment on above: Result Comment: Canc elled via OM: Order cancelled - Patient discharged Performed By: #### L 500.2500, L100.0100 ####[facility] [address] [place], [address] GLU Normal 70-99 [facility] Comment on above: Result Comment: Canc elled via OM: Order cancelled - Patient discharged Performed By: #### L 500.2500, L100.0100 ####[facility] [address] [place], [address] Potassium Normal 3.5-5.1 [facility] Comment on above: Result Comment: Canc elled via OM: Order cancelled - Patient discharged Performed By: #### L 500.2500, L100.0100 ####[facility] [address] [place], [address] Basic Metabolic Profile (BMP) Normal 136-145 [facility] Comment on above: Result Comment: Canc elled via OM: Order cancelled - Patient discharged Performed By: #### L 500.2500, L100.0100 ####[facility] [address] [place], [address] Bedside Glucoseon 08-05-2024 FINGERSTICK GLU 74 mg/dL Normal 74-106 [facility] Comment on above: Result Comment: LUIZA GEMENT OF PATIENT CARE PER NURSING PROTOCOL Performed By: #### L 501.080 ####[facility] [address] [place], [address] FINGERSTICK GLU 97 mg/dL Normal 74-106 [facility] Comment on above: Result Comment: LUIZA GEMENT OF PATIENT CARE PER NURSING PROTOCOL Performed By: #### L 501.080 ####[facility] [address] [place], [address] FINGERSTICK GLU 102 mg/dL Normal 74-106 [facility] Comment on above: Result Comment: LUIZA GEMENT OF PATIENT CARE PER NURSING PROTOCOL Performed By: #### L 501.080 ####[facility] [address] [place], [address] FINGERSTICK GLU 59 mg/dL Low 74-106 [facility] Comment on above: Result Comment: LUIZA GEMENT OF PATIENT CARE PER NURSING PROTOCOL Performed By: #### L 501.080 ####[facility] [address] [place], [address] FINGERSTICK GLU 72 mg/dL Low 74-106 [facility] Comment on above: Result Comment: LUIZA GEMENT OF PATIENT CARE PER NURSING PROTOCOL Performed By: #### L 501.080 ####[facility] [address] [place], [address] FINGERSTICK GLU 96 mg/dL Normal 74-106 [facility] Comment on above: Result Comment: LUIZA GEMENT OF PATIENT CARE PER NURSING PROTOCOL Performed By: #### L 501.080 ####[facility] [address] [place], [address] FINGERSTICK GLU 66 mg/dL Low 74-106 [facility] Comment on above: Result Comment: LUIZA GEMENT OF PATIENT CARE PER NURSING PROTOCOL Performed By: #### L 501.080 ####[facility] [address] [place], [address] FINGERSTICK GLU 80 mg/dL Normal 74-106 [facility] Comment on above: Result Comment: LUIZA GEMENT OF PATIENT CARE PER NURSING PROTOCOL Performed By: #### L 501.080 ####[facility] [address] [place], [address] FINGERSTICK GLU 95 mg/dL Normal 74-106 [facility] Comment on above: Result Comment: LUIZA GEMENT OF PATIENT CARE PER NURSING PROTOCOL Performed By: #### L 501.080 ####[facility] [address] [place], [address] CBC W/Diff, Automatedon 07-27 0 Absolute Lymph 1.25 X10 3/uL Normal 0.83-4.51 [facility] Comment on above: Performed By: #### L 100.0100, L500.2500 ####[facility] [address] [place], [address] Absolute Neut 12.9 X10 3/uL High 2.0-7.7 [facility] Comment on above: Performed By: #### L 100.0100, L500.2500 ####[facility] [address] [place], [address] Basophils/100 WBC (Bld) 0.3 % Normal 0-1 [facility] Comment on above: Performed By: #### L 100.0100, L500.2500 ####[facility] [address] [place], [address] Eosinophils/100 WBC (Bld) 0.3 % Normal 0-5 [facility] Comment on above: Performed By: #### L 100.0100, L500.2500 ####[facility] [address] [place], [address] Erythrocyte distribution width (RBC) [Ratio] 17.0 % High 11.6-14.6 [facility] Comment on above: Performed By: #### L 100.0100, L500.2500 ####[facility] [address] [place], [address] Hematocrit (Bld) [Volume fraction] 27.0 % Low 37-47 [facility] Comment on above: Performed By: #### L 100.0100, L500.2500 ####[facility] [address] [place], [address] Hemoglobin (Bld) [Mass/Vol] 8.6 g/dL Low 12.0-15.0 [facility] Comment on above: Performed By: #### L 100.0100, L500.2500 ####[facility] [address] [place], [address] IG% 3.900 High 0.0-0.9 [facility] Comment on above: Result Comment: IG% - Immature Granulocytes (promyelocytes, myelocytes andmetamyelocytes) > 1% indicates that a LEFT SHIFT is Present. Performed By: #### L 100.0100, L500.2500 ####[facility] [address] [place], [address] Lymphocytes/100 WBC (Bld) 8.2 % Low 19-41 [facility] Comment on above: Performed By: #### L 100.0100, L500.2500 ####[facility] [address] [place], [address] MCH (RBC) [Entitic mass] 27.3 pg Normal 27.0-32.0 [facility] Comment on above: Performed By: #### L 100.0100, L500.2500 ####[facility] [address] [place], [address] MCHC (RBC) [Mass/Vol] 31.9 g/dL Low 32-[address] [facility] Comment on above: Performed By: #### L 100.0100, L500.2500 ####[facility] [address] [place], [address] MCV (RBC) [Entitic vol] 85.7 fL Normal 81-99 [facility] Comment on above: Performed By: #### L 100.0100, L500.2500 ####[facility] [address] [place], [address] Monocytes/100 WBC (Bld) 3.4 % Normal 0-10 [facility] Comment on above: Performed By: #### L 100.0100, L500.2500 ####[facility] [address] [place], [address] Neutrophils/100 WBC (Bld) 83.9 % High 47-70 [facility] Comment on above: Performed By: #### L 100.0100, L500.2500 ####[facility] [address] [place], [address] Nucleated RBC (Bld) [#/Vol] 0 10*3/uL Normal 0-5 [facility] Comment on above: Performed By: #### L 100.0100, L500.2500 ####[facility] [address] [place], [address] Platelet mean volume (Bld) [Entitic vol] 9.2 fL Normal 6.2-12.0 [facility] Comment on above: Performed By: #### L 100.0100, L500.2500 ####[facility] [address] [place], [address] Platelets (Bld) [#/Vol] 234 10*3/uL Normal 150-450 [facility] Comment on above: Performed By: #### L 100.0100, L500.2500 ####[facility] [address] [place], [address] RBC (Bld) [#/Vol] 3.15 10*6/uL Low 4.2-5.4 [facility] Comment on above: Performed By: #### L 100.0100, L500.2500 ####[facility] [address] [place], [address] RDW SD 52.5 fl High 35.1-43.9 [facility] Comment on above: Performed By: #### L 100.0100, L500.2500 ####[facility] [address] [place], [address] WBC (Bld) [#/Vol] 15.3 10*3/uL High 4.4-11.0 [facility] Comment on above: Performed By: #### L 100.0100, L500.2500 ####[facility] [address] [place], [address] Absolute Neut Normal 2.0-7.7 [facility] Comment on above: Result Comment: Canc elled via OM: Order cancelled - Patient discharged Performed By: #### L 500.2500, L100.0100 ####[facility] [address] [place], [address] HCT Normal 37-47 [facility] Comment on above: Result Comment: Canc elled via OM: Order cancelled - Patient discharged Performed By: #### L 500.2500, L100.0100 ####[facility] [address] [place], [address] HGB Normal 12.0-15.0 [facility] Comment on above: Result Comment: Canc elled via OM: Order cancelled - Patient discharged Performed By: #### L 500.2500, L100.0100 ####[facility] [address] [place], [address] MCH Normal 27.0-32.0 [facility] Comment on above: Result Comment: Canc elled via OM: Order cancelled - Patient discharged Performed By: #### L 500.2500, L100.0100 ####[facility] [address] [place], [address] MCHC Normal 32-36 [facility] Comment on above: Result Comment: Canc elled via OM: Order cancelled - Patient discharged Performed By: #### L 500.2500, L100.0100 ####[facility] [address] [place], [address] MCV Normal 81-99 [facility] Comment on above: Result Comment: Canc elled via OM: Order cancelled - Patient discharged Performed By: #### L 500.2500, L100.0100 ####[facility] [address] [place], [address] NEUT% Normal 47-70 [facility] Comment on above: Result Comment: Canc elled via OM: Order cancelled - Patient discharged Performed By: #### L 500.2500, L100.0100 ####[facility] [address] [place], [address] PLT Normal 150-450 [facility] Comment on above: Result Comment: Canc elled via OM: Order cancelled - Patient discharged Performed By: #### L 500.2500, L100.0100 ####[facility] [address] [place], [address] RBC Normal 4.2-5.4 [facility] Comment on above: Result Comment: Canc elled via OM: Order cancelled - Patient discharged Performed By: #### L 500.2500, L100.0100 ####[facility] [address] [place], [address] RDW CV Normal 11.6-14.6 [facility] Comment on above: Result Comment: Canc elled via OM: Order cancelled - Patient discharged Performed By: #### L 500.2500, L100.0100 ####[facility] [address] [place], [address] RDW SD Normal 35.1-43.9 [facility] Comment on above: Result Comment: Canc elled via OM: Order cancelled - Patient discharged Performed By: #### L 500.2500, L100.0100 ####[facility] [address] [place], [address] WBC Normal 4.4-11.0 [facility] Comment on above: Result Comment: Canc elled via OM: Order cancelled - Patient discharged Performed By: #### L 500.2500, L100.0100 ####[facility] [address] [place], [address] ALP [Catalytic activity/Vol] Ordered By: Ivone Buckner on 08-04-2024 Serum or plasma alkaline phosphatase measurement 56 U/L 35-104 [facility] ALT [Catalytic activity/Vol] Ordered By: [facility] Dudley on 08-04-2024 Serum or plasma alanine aminotransferase (ALT) measurement 7 U/L <35 [facility] Albumin [Mass/Vol]Ordered By : Ivone Dudley on 08-04-2024 Serum or plasma albumin measurement (mass/volume) 2.1 g/dL Low 3.4-4.8 [facility] Albumin/Globulin [Mass ratio ]Ordered By: [facility] [place] on 08-04-2024 Serum or plasma albumin/globulin mass ratio 0.7 RATIO Low 0.9-2.4 [facility] [id number] 08-04-2024 ANTIBODY ID Normal [facility] Comment on above: Order Comment: CMV N EG? NNumber of units to transfuse: 1Is this product for anemia associated withhemoglobinopathy? NIs pt's Hgb is 10mmHg)? NIs this for PREOP anemia correction prior to anesthesia? NReason for Ordering Blood: ChronicIs there symptomatic anemia? NAre the blood/blood products to be transfused? YIs the patient having/had surgery? NWmari LlanosNY Result Comment: CFYA Performed By: #### B [facility] [place], [id number] ####[facility] [address] [place], [place], [address] BRCon 08-04-2024 RC Normal [facility] Comment on above: Result Comment: [id number] ON RC TRANSFUSED 08/04/24 1435 Performed By: #### B [facility] [place], [id number] ####[facility] [address] [place], [address] Basic Metabolic Profile (BMP )on 08-04-2024 BUN Normal 4-19 [facility] Comment on above: Result Comment: Catarina elled via OM: Order cancelled - Patient discharged Performed By: #### L 100.0100, L500.2500 ####[facility] [address] [place], [address] Order Comment: UTO X 2 PHLEBS, NOTIFIED NURSE THERESA Result Comment: MORE RECENT SPECIMEN COLLECTED. BUN/CRE Normal 10-20 [facility] Comment on above: Result Comment: Canc elled via OM: Order cancelled - Patient discharged Performed By: #### L 100.0100, L500.2500 ####[facility] [address] [place], [place], [address] Order Comment: UTO X 2 PHLEBS, NOTIFIED NURSE THERESA Result Comment: MORE RECENT SPECIMEN COLLECTED. Calcium Normal 7.6-11.0 [facility] Comment on above: Result Comment: Canc elled via OM: Order cancelled - Patient discharged Performed By: #### L 100.0100, L500.2500 ####[facility] [address] [place], [place], [address] Order Comment: UTO X 2 PHLEBS, NOTIFIED NURSE THERESA Result Comment: MORE RECENT SPECIMEN COLLECTED. CL Normal 98-108 [facility] Comment on above: Result Comment: Canc elled via OM: Order cancelled - Patient discharged Performed By: #### L 100.0100, L500.2500 ####[facility] [address] [place], [place], [address] Order Comment: UTO X 2 PHLEBS, NOTIFIED NURSE THERESA Result Comment: MORE RECENT SPECIMEN COLLECTED. CO2 Normal 21.0-32.0 [facility] Comment on above: Result Comment: Canc elled via OM: Order cancelled - Patient discharged Performed By: #### L 100.0100, L500.2500 ####[facility] [address] [place], [place], [address] Order Comment: UTO X 2 PHLEBS, NOTIFIED NURSE THERESA Result Comment: MORE RECENT SPECIMEN COLLECTED. CREAT,SERUM Normal 0.70-1.20 [facility] Comment on above: Result Comment: Canc elled via OM: Order cancelled - Patient discharged Performed By: #### L 100.0100, L500.2500 ####[facility] [address] [place], [address] Order Comment: UTO X 2 PHLEBS, NOTIFIED NURSE THERESA Result Comment: MORE RECENT SPECIMEN COLLECTED. eGFR Normal >60 [facility] Comment on above: Result Comment: Canc elled via OM: Order cancelled - Patient discharged Performed By: #### L 100.0100, L500.2500 ####[facility] [address] [place], [address] Order Comment: UTO X 2 PHLEBS, NOTIFIED NURSE THERESA Result Comment: MORE RECENT SPECIMEN COLLECTED. GAP Normal 5-15 [facility] Comment on above: Result Comment: Canc elled via OM: Order cancelled - Patient discharged Performed By: #### L 100.0100, L500.2500 ####[facility] [address] [place], [address] Order Comment: UTO X 2 PHLEBS, NOTIFIED NURSE THERESA Result Comment: MORE RECENT SPECIMEN COLLECTED. GLU Normal 70-99 [facility] Comment on above: Result Comment: Canc elled via OM: Order cancelled - Patient discharged Performed By: #### L 100.0100, L500.2500 ####[facility] [address] [place], [address] Order Comment: UTO X 2 PHLEBS, NOTIFIED NURSE THERESA Result Comment: MORE RECENT SPECIMEN COLLECTED. Potassium Normal 3.3-5.1 [facility] Comment on above: Result Comment: Canc elled via OM: Order cancelled - Patient discharged Performed By: #### L 100.0100, L500.2500 ####[facility] [address] [place], [address] Order Comment: UTO X 2 PHLEBS, NOTIFIED NURSE THERESA Result Comment: MORE RECENT SPECIMEN COLLECTED. Basic Metabolic Profile (BMP) Normal 133-145 [facility] Comment on above: Result Comment: Canc elled via OM: Order cancelled - Patient discharged Performed By: #### L 100.0100, L500.2500 ####[facility] [address] [place], [address] Order Comment: UTO X 2 PHLEBS, NOTIFIED NURSE THERESA Result Comment: MORE RECENT SPECIMEN COLLECTED. Bedside Glucoseon 08-04-2024 FINGERSTICK GLU 76 mg/dL Normal [address] [place] [address] Comment on above: Result Comment: LUIZA GEMENT OF PATIENT CARE PER NURSING PROTOCOL Performed By: #### L 501.080 ####[facility] [address] [place], [address] FINGERSTICK GLU 75 mg/dL Normal [address] [place] [address] Comment on above: Result Comment: LUIZA GEMENT OF PATIENT CARE PER NURSING PROTOCOL Performed By: #### L 501.080 ####[facility] [address] [place], [address] FINGERSTICK GLU < 10 Invalid Interpretation Code [address] [place] [address] Comment on above: Result Comment: Dr George mathis FollowedMANAGEMENT OF PATIENT CARE PER NURSING PROTOCOL Performed By: #### L 501.080 ####[facility] [address] [place], [address] FINGERSTICK GLU 14 mg/dL Invalid Interpretation Code [address] [place] [address] Comment on above: Result Comment: LUIZA GEMENT OF PATIENT CARE PER NURSING PROTOCOL Performed By: #### L 501.080 ####[facility] [address] [place], [address] FINGERSTICK GLU < 10 Invalid Interpretation Code [address] Comment on above: Result Comment: Dr George mathis FollowedMANAGEMENT OF PATIENT CARE PER NURSING PROTOCOL Performed By: #### L 501.080 ####[facility] [address] [place], [address] FINGERSTICK GLU 16 mg/dL Invalid Interpretation Code [address] [place] [address] Comment on above: Result Comment: LUIZA GEMENT OF PATIENT CARE PER NURSING PROTOCOL Performed By: #### L 501.080 ####[facility] [address] [place], [place], [id number] Bilirubin, totalOrdered By: White on 08-04-2024 Bilirubin [Mass/Vol] 0.23 mg/dL 0.00-1.30 [facility] Bilirubin, total 0.23 mg/dL 0.00-1.30 [facility] Blood band neutrophil count as percentage of total leukocytesOrdered By: White on 08-04-2024 Band form neutrophils/100 WBC (Bld) 1 % 0-5 [facility] Blood band neutrophil count as percentage of total leukocytes 1 % 0-5 [facility] Blood eosinophils/100 leukoc ytesOrdered By: White on 08-04-2024 Eosinophils/100 WBC (Bld) 1 % 0-5 [facility] Blood lymphocytes/100 leukoc ytesOrdered By: White on 08-04-2024 Lymphocytes/100 WBC (Bld) 13 % Low 19-41 [facility] Blood metamyelocytes/100 massiel kocytesOrdered By: White on 08-04-2024 Metamyelocytes/100 WBC (Bld) 2 % High 0-1 [facility] Blood metamyelocytes/100 leukocytes 2 % 0-10 [facility] Blood monocytes/100 leukocyt esOrdered By: White on 08-04-2024 Monocytes/100 WBC (Bld) 2 % 0-10 [facility] Blood segmented neutrophils/ 100 leukocytesOrdered By: White on 08-04-2024 Segmented neutrophils/100 WBC (Bld) 81 % High 47-70 [facility] CBC W/Diff, Automatedon Absolute Lymph 1.24 X10 3/uL Normal 0.83-4.51 [facility] Comment on above: Performed By: #### L 100.0100 ####[facility] [address] [place], [address] Absolute Neut 7.9 X10 3/uL High 2.0-7.7 [facility] Comment on above: Performed By: #### L 100.0100 ####[facility] [address] [place], [address] PATH REV May foll Normal [facility] Comment on above: Performed By: #### L 100.0100 ####[facility] [address] [place], [address] Absolute Neut Normal 2.0-7.7 [facility] Comment on above: Result Comment: Canc elled via OM: Order cancelled - Patient discharged Performed By: #### L 100.0100, L500.2500 ####[facility] [address] [place], [address] Order Comment: UTO X 2 PHLEBS, NOTIFIED NURSE THERESA Result Comment: DUPL ICATE HCT Normal 37-47 [facility] Comment on above: Result Comment: Canc elled via OM: Order cancelled - Patient discharged Performed By: #### L 100.0100, L500.2500 ####[facility] [address] [place], [address] Order Comment: UTO X 2 PHLEBS, NOTIFIED NURSE THERESA Result Comment: DUPL ICATE HGB Normal 12.0-15.0 [facility] Comment on above: Result Comment: Canc elled via OM: Order cancelled - Patient discharged Performed By: #### L 100.0100, L500.2500 ####[facility] [address] [place], [address] Order Comment: UTO X 2 PHLEBS, NOTIFIED NURSE THERESA Result Comment: DUPL ICATE MCH Normal 27.0-32.0 [facility] Comment on above: Result Comment: Canc elled via OM: Order cancelled - Patient discharged Performed By: #### L 100.0100, L500.2500 ####[facility] [address] [place], [address] Order Comment: UTO X 2 PHLEBS, NOTIFIED NURSE THERESA Result Comment: DUPL ICATE MCHC Normal 32-36 [facility] Comment on above: Result Comment: Canc elled via OM: Order cancelled - Patient discharged Performed By: #### L 100.0100, L500.2500 ####[facility] [address] [facility] [address] Order Comment: UTO X 2 PHLEBS, NOTIFIED NURSE THERESA Result Comment: DUPL ICATE MCV Normal 81-99 [facility] Comment on above: Result Comment: Canc elled via OM: Order cancelled - Patient discharged Performed By: #### L 100.0100, L500.2500 ####[facility] [address] [place] [id number] Order Comment: UTO X 2 PHLEBS, NOTIFIED NURSE THERESA Result Comment: DUPL ICATE NEUT% Normal 47-70 [facility] Comment on above: Result Comment: Canc elled via OM: Order cancelled - Patient discharged Performed By: #### L 100.0100, L500.2500 ####[facility] [address] [place] [address] Order Comment: UTO X 2 PHLEBS, NOTIFIED NURSE THERESA Result Comment: DUPL ICATE PLT Normal 150-450 [facility] Comment on above: Result Comment: Canc elled via OM: Order cancelled - Patient discharged Performed By: #### L 100.0100, L500.2500 ####[facility] [address] [facility] [address] Order Comment: UTO X 2 PHLEBS, NOTIFIED NURSE THERESA Result Comment: DUPL ICATE RBC Normal 4.2-5.4 [facility] Comment on above: Result Comment: Canc elled via OM: Order cancelled - Patient discharged Performed By: #### L 100.0100, L500.2500 ####[facility] [address] [place] [id number] Order Comment: UTO X 2 PHLEBS, NOTIFIED NURSE THERESA Result Comment: DUPL ICATE RDW CV Normal 11.6-14.6 [facility] Comment on above: Result Comment: Canc elled via OM: Order cancelled - Patient discharged Performed By: #### L 100.0100, L500.2500 ####[facility] [address] [place], [place], [id number] Order Comment: UTO X 2 PHLEBS, NOTIFIED NURSE THERESA Result Comment: DUPL ICATE RDW SD Normal 35.1-43.9 [facility] Comment on above: Result Comment: Canc elled via OM: Order cancelled - Patient discharged Performed By: #### L 100.0100, L500.2500 ####[facility] [address] [place], [address] Order Comment: UTO X 2 PHLEBS, NOTIFIED NURSE THERESA Result Comment: DUPL ICATE WBC Normal 4.4-11.0 [facility] Comment on above: Result Comment: Canc elled via OM: Order cancelled - Patient discharged Performed By: #### L 100.0100, L500.2500 ####[facility] [address] [place], [address] Order Comment: UTO X 2 PHLEBS, NOTIFIED NURSE THERESA Result Comment: DUPL ICATE Cells counted Molgen (Bld/Ti ss) [#]Ordered By: Ivone Buckner on 08-04-2024 Total cell count 100 MANUAL DIFF [facility] Comprehensive Metabolic Prof ilon 08-04-2024 Albumin [Mass/Vol] 2.1 g/dL Low 3.4-4.8 [facility] Comment on above: Performed By: #### L 500.4050 ####[facility] [address] [place], [address] Albumin/Globulin [Mass ratio] 0.7 {ratio} Low 0.9-2.4 [facility] Comment on above: Performed By: #### L 500.4050 ####[facility] [address] [place], [address] ALK PHOS 56 U/L Normal 35-104 [facility] Comment on above: Performed By: #### L 500.4050 ####[facility] [address] [place], [address] ALT [Catalytic activity/Vol] 7 U/L Normal <=34 [facility] Comment on above: Performed By: #### L 500.4050 ####[facility] [address] [place], [address] AST [Catalytic activity/Vol] 25 U/L Normal <=31 [facility] Comment on above: Performed By: #### L 500.4050 ####[facility] [address] [place], [address] Bilirubin [Mass/Vol] 0.23 mg/dL Normal 0.00-1.30 [facility] Comment on above: Performed By: #### L 500.4050 ####[facility] [address] [place], [address] BUN/CRE 39.2 RATIO High 10-20 [facility] Comment on above: Performed By: #### L 500.4050 ####[facility] [address] [place], [address] Calcium [Mass/Vol] 8.0 mg/dL Normal 7.6-11.0 [facility] Comment on above: Performed By: #### L 500.4050 ####[facility] [address] [place], [address] Chloride [Moles/Vol] 101 mmol/L Normal 98-108 [facility] Comment on above: Performed By: #### L 500.4050 ####[facility] [address] [place], [address] CO2 [Moles/Vol] 22.9 mmol/L Normal 21.0-32.0 [facility] Comment on above: Performed By: #### L 500.4050 ####[facility] [address] [place], [address] Creatinine [Mass/Vol] 1.41 mg/dL High 0.70-1.[address] [facility] Comment on above: Performed By: #### L 500.4050 ####[facility] [address] [place], [address] ECRCL 30.04 ml/min Low 50-250 [facility] Comment on above: Performed By: #### L 500.4050 ####[facility] [address] [place], [address] GAP 9 Normal 5-15 [facility] Comment on above: Performed By: #### L 500.4050 ####[facility] [address] [place], [address] GFR/1.73 sq M.predicted among non-blacks MDRD (S/P/Bld) [Vol rate/Area] 42 mL/min/{1.73_m2} Low >60 [facility] Comment on above: Result Comment: mL/m in/1.73m2 CKD-EPI Creatinine Equation (2020) Performed By: #### L 500.4050 ####[facility] [address] [place], [address] Globulin (S) [Mass/Vol] 3.1 g/dL Normal 2.2-4.2 [facility] Comment on above: Performed By: #### L 500.4050 ####[facility] [address] [place], [address] Glucose [Mass/Vol] 153 mg/dL High 70-99 [facility] Comment on above: Performed By: #### L 500.4050 ####[facility] [address] [place], [address] Potassium [Moles/Vol] 4.7 mmol/L Normal 3.3-5.[address] [facility] Comment on above: Performed By: #### L 500.4050 ####[facility] [address] [place], [address] Sodium [Moles/Vol] 134 mmol/L Normal 133-145 [facility] Comment on above: Performed By: #### L 500.4050 ####[facility] [address] [place], [address] T PROT 5.2 g/dL Low 5.9-8.4 [facility] Comment on above: Performed By: #### L 500.4050 ####[facility] [address] [place], [address] Urea nitrogen [Mass/Vol] 55 mg/dL High 4-19 [facility] Comment on above: Performed By: #### L 500.4050 ####[facility] [address] [place], [place], [phone](053) Erythrocyte morphology asses smentOrdered By: Ivone Buckner on 08-04-2024 RBC morphology finding Nom (Bld) N CYTIC NORMAL NORM C&C [facility] HH, Hemoglobin AND Hematocri ton 08-04-2024 Hematocrit (Bld) [Volume fraction] 27.1 % Low 37-47 [facility] Comment on above: Order Comment: Comme nts: 1-2 hours after PRBC completion. Performed By: #### L 100.0600 ####[facility] [address] [place], [place], [id number] Hemoglobin (Bld) [Mass/Vol] 8.6 g/dL Low 12.0-15.0 [facility] Comment on above: Order Comment: Comme nts: 1-2 hours after PRBC completion. Performed By: #### L 100.0600 ####[facility] [address] [place], [address] Hypochromatic red blood cell detectionOrdered By: Ivone Buckner on 08-04-2024 Hypochromia Ql (Bld) 1+ [facility] Hypochromia Ql (Bld)Ordered By: Ivone Buckner on 08-04-2024 Hypochromatic red blood cell detection 1+ [facility] L499.0042on 08-04-2024 Trop T High Sen 146 ng/L Invalid Interpretation Code <=14 [facility] Comment on above: Result Comment: Crit ical Result(s) Called to Ginette MEJIA ([facility]): John Paul.Stoner:??Results read back by same. Performed By: #### L 499.0042 ####[facility] [address] [facility] [place], [place], [address] L501.4021on 08-04-2024 Trop T High Sen 152 ng/L Invalid Interpretation Code <=14 [facility] Comment on above: Result Comment: Crit ical Result(s) Called at:07 by: WALTER KENNEDY TO KIN??Results read back by same. Performed By: #### L 501.4021 ####[facility] [address] [facility] [place], [place], [address] Lymphocytes/100 WBC (Bld)Ord ered By: Ivone Dudley on 08-04-2024 Blood lymphocytes/100 leukocytes 13 % Low 19-41 [facility] No Panel InformationOrdered By: Dudley on 08-04-2024 152 ng/L High <14 [facility] 25 U/L <32 [facility] Pathologist review Horace (Unsp spec) [Interp]Ordered By: Ivone Dudley on 08-04-2024 Review by pathologist May [facility] Platelet estimateOrdered By: Ivone Buckner on 08-04-2024 Platelets LM Ql (Bld) ADEQUATE ADEQ [facility] Platelets LM Ql (Bld)Ordered By: Dudley on 08-04-2024 Platelet estimate ADEQUATE [facility] RBC morphology finding Nom ( Bld)Ordered By: Ivone Dudley on 08-04-2024 Erythrocyte morphology assessment N CYTIC NORMAL NORM C&C [facility] Review by pathologistOrdered By: Ivone Dudley on 08-04-2024 Pathologist review Horace (Unsp spec) [Interp] September [facility] Segmented neutrophils/100 WB C (Bld)Ordered By: Ivone Buckner on 08-04-2024 Blood segmented neutrophils/100 leukocytes 81 % High 47-70 [facility] Serum globulin measurementOr dered By: Ivone Buckner on 08-04-2024 Globulin (S) [Mass/Vol] 3.1 g/dL 2.2-4.2 [facility] Serum globulin measurement 3.1 g/dL 2.2-4.2 [facility] Serum or plasma alanine camargo otransferase (ALT) measurementOrdered By: Ivone Buckner on 08-04-2024 ALT [Catalytic activity/Vol] 7 U/L <35 [facility] Serum or plasma albumin megan urement (mass/volume)Ordered By: Ivone Buckner on 08-04-2024 Albumin [Mass/Vol] 2.1 g/dL Low 3.4-4.8 [facility] Serum or plasma albumin/glob ulin mass ratioOrdered By: Ivone Buckner on 08-04-2024 Albumin/Globulin [Mass ratio] 0.7 {ratio} Low 0.9-2.4 [facility] Serum or plasma alkaline susan sphatase measurementOrdered By: Ivone Buckner on 08-04-2024 ALP [Catalytic activity/Vol] 56 U/L 35-104 [facility] Total cell countOrdered By: Ivone Buckner on 08-04-2024 Cells counted Molgen (Bld/Tiss) [#] 100 MANUAL DIFF [facility] Total proteinOrdered By: Nona Buckner on 08-04-2024 Protein [Mass/Vol] 5.2 g/dL Low 5.9-8.4 [facility] Total protein 5.2 g/dL Low 5.9-8.4 [facility] Troponin T.cardiac High sens itivity method [Mass/Vol]Ordered By: Ivone Buckner on 08-04-2024 Troponin T.cardiac [Mass/volume] in Serum or Plasma by High sensitivity method 146 ng/L High <14 [facility] Troponin T.cardiac [Mass/vol ume] in Serum or Plasma by High sensitivity methodOrdered By: Ivone Buckner on 08-04-2024 Troponin T.cardiac High sensitivity method [Mass/Vol] 146 ng/L High <14 [facility] Type AND Screenon 08-04-2024 ABO and Rh group Nom (Bld) Blood group O Rh(D) positive Normal [facility] Comment on above: Order Comment: CMV N EG? NNumber of units to transfuse: 1Is this product for anemia associated withhemoglobinopathy? NIs pt's Hgb is 10mmHg)? NIs this for PREOP anemia correction prior to anesthesia? NReason for Ordering Blood: ChronicIs there symptomatic anemia? NAre the blood/blood products to be transfused? YIs the patient having/had surgery? Fabian Roberts Performed By: #### B TS, BRC, [id number] ####[facility] [address] [place], [address] Basic Metabolic Profile (BMP )on 08-03-2024 BUN/CRE 31.7 RATIO High 10-20 [facility] Comment on above: Performed By: #### L 500.2500, L100.0100 ####[facility] [address] [place], [address] Calcium [Mass/Vol] 8.6 mg/dL Normal 7.6-11.0 [facility] Comment on above: Performed By: #### L 500.2500, L100.0100 ####[facility] [address] [place], [address] Chloride [Moles/Vol] 102 mmol/L Normal 98-108 [facility] Comment on above: Performed By: #### L 500.2500, L100.0100 ####[facility] [address] [place], [address] CO2 [Moles/Vol] 21.1 mmol/L Normal 21.0-32.0 [facility] Comment on above: Performed By: #### L 500.2500, L100.0100 ####[facility] [address] [place], [address] Creatinine [Mass/Vol] 1.24 mg/dL High 0.70-1.[address] [facility] Comment on above: Performed By: #### L 500.2500, L100.0100 ####[facility] [address] [place], [address] ECRCL 34.16 ml/min Low 50-250 [facility] Comment on above: Performed By: #### L 500.2500, L100.0100 ####[facility] [address] [place], [address] GAP 13 Normal 5-15 [facility] Comment on above: Performed By: #### L 500.2500, L100.0100 ####[facility] [address] [place], [address] GFR/1.73 sq M.predicted among non-blacks MDRD (S/P/Bld) [Vol rate/Area] 49 mL/min/{1.73_m2} Low >60 [facility] Comment on above: Result Comment: mL/m in/1.73m2 CKD-EPI Creatinine Equation (2020) Performed By: #### L 500.2500, L100.0100 ####[facility] [address] [place], [address] Glucose [Mass/Vol] 65 mg/dL Low 70-99 [facility] Comment on above: Performed By: #### L 500.2500, L100.0100 ####[facility] [address] [place], [address] Potassium [Moles/Vol] 4.8 mmol/L Normal 3.3-5.[address] [facility] Comment on above: Performed By: #### L 500.2500, L100.0100 ####[facility] [address] [place], [address] Sodium [Moles/Vol] 135 mmol/L Normal 133-145 [facility] Comment on above: Performed By: #### L 500.2500, L100.0100 ####[facility] [address] [place], [address] Urea nitrogen [Mass/Vol] 39 mg/dL High 4-19 [facility] Comment on above: Performed By: #### L 500.2500, L100.0100 ####[facility] [address], [address] BUN Normal 4-19 [facility] Comment on above: Result Comment: Canc elled via OM: Order cancelled - Patient discharged Performed By: #### L 500.2500, L100.0100 ####[facility] [address] [place], [address] BUN/CRE Normal 10-20 [facility] Comment on above: Result Comment: Canc elled via OM: Order cancelled - Patient discharged Performed By: #### L 500.2500, L100.0100 ####[facility] [address] [place], [address] Calcium Normal 7.6-11.0 [facility] Comment on above: Result Comment: Canc elled via OM: Order cancelled - Patient discharged Performed By: #### L 500.2500, L100.0100 ####[facility] [address] [place], [address] CL Normal 98-107 [facility] Comment on above: Result Comment: Canc elled via OM: Order cancelled - Patient discharged Performed By: #### L 500.2500, L100.0100 ####[facility] [address] [place], [address] CO2 Normal 21.0-32.0 [facility] Comment on above: Result Comment: Canc elled via OM: Order cancelled - Patient discharged Performed By: #### L 500.2500, L100.0100 ####[facility] [address] [place], [address] CREAT,SERUM Normal 0.70-1.20 [facility] Comment on above: Result Comment: Canc elled via OM: Order cancelled - Patient discharged Performed By: #### L 500.2500, L100.0100 ####[facility] [address] [place], [address] eGFR Normal >60 [facility] Comment on above: Result Comment: Canc elled via OM: Order cancelled - Patient discharged Performed By: #### L 500.2500, L100.0100 ####[facility] [address] [place], [address] GAP Normal 5-15 [facility] Comment on above: Result Comment: Canc elled via OM: Order cancelled - Patient discharged Performed By: #### L 500.2500, L100.0100 ####[facility] [address] [place], [address] GLU Normal 70-99 [facility] Comment on above: Result Comment: Canc elled via OM: Order cancelled - Patient discharged Performed By: #### L 500.2500, L100.0100 ####[facility] [address] [place], [address] Potassium Normal 3.5-5.1 [facility] Comment on above: Result Comment: Canc elled via OM: Order cancelled - Patient discharged Performed By: #### L 500.2500, L100.0100 ####[facility] [address] [place], [address] Basic Metabolic Profile (BMP) Normal 136-145 [facility] Comment on above: Result Comment: Canc elled via OM: Order cancelled - Patient discharged Performed By: #### L 500.2500, L100.0100 ####[facility] [address] [place], [address] CBC W/Diff, Automatedon 03-0 Absolute Lymph 0.88 X10 3/uL Normal 0.83-4.51 [facility] Comment on above: Performed By: #### L 500.2500, L100.0100 ####[facility] [address], [address] Absolute Neut 9.0 X10 3/uL High 2.0-7.7 [facility] Comment on above: Performed By: #### L 500.2500, L100.0100 ####[facility] [address] [place], [address] Basophils/100 WBC (Bld) 0.5 % Normal 0-1 [facility] Comment on above: Performed By: #### L 500.2500, L100.0100 ####[facility] [address] [place], [address] Eosinophils/100 WBC (Bld) 1.3 % Normal 0-5 [facility] Comment on above: Performed By: #### L 500.2500, L100.0100 ####[facility] [address] [place], [address] Erythrocyte distribution width (RBC) [Ratio] 17.3 % High 11.6-14.6 [facility] Comment on above: Performed By: #### L 500.2500, L100.0100 ####[facility] [address] [place], [address] Hematocrit (Bld) [Volume fraction] 27.9 % Low 37-47 [facility] Comment on above: Performed By: #### L 500.2500, L100.0100 ####[facility] [address] [place], [address] Hemoglobin (Bld) [Mass/Vol] 8.0 g/dL Low 12.0-15.0 [facility] Comment on above: Performed By: #### L 500.2500, L100.0100 ####[facility] [address] [place], [address] IG% 3.700 High 0.0-0.9 [facility] Comment on above: Result Comment: IG% - Immature Granulocytes (promyelocytes, myelocytes andmetamyelocytes) > 1% indicates that a LEFT SHIFT is Present. Performed By: #### L 500.2500, L100.0100 ####[facility] [address] [place], [address] Lymphocytes/100 WBC (Bld) 7.9 % Low 19-41 [facility] Comment on above: Performed By: #### L 500.2500, L100.0100 ####[facility] [address] [place], [address] MCH (RBC) [Entitic mass] 25.2 pg Low 27.0-32.0 [facility] Comment on above: Performed By: #### L 500.2500, L100.0100 ####[facility] [address] [place], [address] MCHC (RBC) [Mass/Vol] 28.7 g/dL Low 32-[address] [facility] Comment on above: Performed By: #### L 500.2500, L100.0100 ####[facility] [address] [place], [address] MCV (RBC) [Entitic vol] 88.0 fL Normal 81-99 [facility] Comment on above: Performed By: #### L 500.2500, L100.0100 ####[facility] [address] [place], [address] Monocytes/100 WBC (Bld) 5.5 % Normal 0-10 [facility] Comment on above: Performed By: #### L 500.2500, L100.0100 ####[facility] [address] [place], [address] Neutrophils/100 WBC (Bld) 81.1 % High 47-70 [facility] Comment on above: Performed By: #### L 500.2500, L100.0100 ####[facility] [address] [place], [address] Nucleated RBC (Bld) [#/Vol] 0 10*3/uL Normal 0-5 [facility] Comment on above: Performed By: #### L 500.2500, L100.0100 ####[facility] [address] [place], [address] Platelet mean volume (Bld) [Entitic vol] 9.2 fL Normal 6.2-12.0 [facility] Comment on above: Performed By: #### L 500.2500, L100.0100 ####[facility] [address] [place], [address] Platelets (Bld) [#/Vol] 265 10*3/uL Normal 150-450 [facility] Comment on above: Performed By: #### L 500.2500, L100.0100 ####[facility] [address] [place], [address] RBC (Bld) [#/Vol] 3.17 10*6/uL Low 4.2-5.4 [facility] Comment on above: Performed By: #### L 500.2500, L100.0100 ####[facility] [address] [place], [address] RDW SD 55.2 fl High 35.1-43.9 [facility] Comment on above: Performed By: #### L 500.2500, L100.0100 ####[facility] [address] [place], [address] WBC (Bld) [#/Vol] 11.1 10*3/uL High 4.4-11.0 [facility] Comment on above: Performed By: #### L 500.2500, L100.0100 ####[facility] [address] [place], [address] Absolute Neut Normal 2.0-7.7 [facility] Comment on above: Result Comment: Canc elled via OM: Order cancelled - Patient discharged Performed By: #### L 500.2500, L100.0100 ####[facility] [address] [place], [address] HCT Normal 37-47 [facility] Comment on above: Result Comment: Canc elled via OM: Order cancelled - Patient discharged Performed By: #### L 500.2500, L100.0100 ####[facility] [address] [place], [address] HGB Normal 12.0-15.0 [facility] Comment on above: Result Comment: Canc elled via OM: Order cancelled - Patient discharged Performed By: #### L 500.2500, L100.0100 ####[facility] [address] [place], [address] MCH Normal 27.0-32.0 [facility] Comment on above: Result Comment: Canc elled via OM: Order cancelled - Patient discharged Performed By: #### L 500.2500, L100.0100 ####[facility] [address] [place], [address] MCHC Normal 32-36 [facility] Comment on above: Result Comment: Canc elled via OM: Order cancelled - Patient discharged Performed By: #### L 500.2500, L100.0100 ####[facility] [address] [place], [address] MCV Normal 81-99 [facility] Comment on above: Result Comment: Canc elled via OM: Order cancelled - Patient discharged Performed By: #### L 500.2500, L100.0100 ####[facility] [address] [place], [address] NEUT% Normal 47-70 [facility] Comment on above: Result Comment: Canc elled via OM: Order cancelled - Patient discharged Performed By: #### L 500.2500, L100.0100 ####[facility] [address] [place], [address] PLT Normal 150-450 [facility] Comment on above: Result Comment: Canc elled via OM: Order cancelled - Patient discharged Performed By: #### L 500.2500, L100.0100 ####[facility] [address] [place], [address] RBC Normal 4.2-5.4 [facility] Comment on above: Result Comment: Canc elled via OM: Order cancelled - Patient discharged Performed By: #### L 500.2500, L100.0100 ####[facility] [address] [place], [address] RDW CV Normal 11.6-14.6 [facility] Comment on above: Result Comment: Canc elled via OM: Order cancelled - Patient discharged Performed By: #### L 500.2500, L100.0100 ####[facility] [address] [place], [address] RDW SD Normal 35.1-43.9 [facility] Comment on above: Result Comment: Canc elled via OM: Order cancelled - Patient discharged Performed By: #### L 500.2500, L100.0100 ####[facility] [address] [place], [address] WBC Normal 4.4-11.0 [facility] Comment on above: Result Comment: Canc elled via OM: Order cancelled - Patient discharged Performed By: #### L 500.2500, L100.0100 ####[facility] [address] [place], [address] EGD Reporton 08-03-2024 EGD Report Normal [facility] MR/POSTOP.ANEon 08-03-2024 MR/POSTOP.ANE Normal [facility] MR/SQIQDCFL3pc 08-03-2024 MR/POSTOPAN2 Normal [facility] Basic Metabolic Profile (BMP )on 08-02-2024 BUN/CRE 33.3 RATIO High 10-20 [facility] Comment on above: Performed By: #### L 100.0500, L500.2500 ####[facility] [address] [place], [address] Calcium [Mass/Vol] 8.9 mg/dL Normal 7.6-11.0 [facility] Comment on above: Performed By: #### L 100.0500, L500.2500 ####[facility] [address] [place], [address] Chloride [Moles/Vol] 101 mmol/L Normal 98-108 [facility] Comment on above: Performed By: #### L 100.0500, L500.2500 ####[facility] [address] [place], [address] CO2 [Moles/Vol] 23.8 mmol/L Normal 21.0-32.0 [facility] Comment on above: Performed By: #### L 100.0500, L500.2500 ####[facility] [address] [place], [address] Creatinine [Mass/Vol] 1.37 mg/dL High 0.70-1.[address] [facility] Comment on above: Performed By: #### L 100.0500, L500.2500 ####[facility] [address] [place], [address] ECRCL 30.92 ml/min Low 50-250 [facility] Comment on above: Performed By: #### L 100.0500, L500.2500 ####[facility] [address] [place], [address] GAP 9 Normal 5-15 [facility] Comment on above: Performed By: #### L 100.0500, L500.2500 ####[facility] [address] [place], [address] GFR/1.73 sq M.predicted among non-blacks MDRD (S/P/Bld) [Vol rate/Area] 44 mL/min/{1.73_m2} Low >60 [facility] Comment on above: Result Comment: mL/m in/1.73m2 CKD-EPI Creatinine Equation (2020) Performed By: #### L 100.0500, L500.2500 ####[facility] [address] [place], [address] Glucose [Mass/Vol] 54 mg/dL Low 70-99 [facility] Comment on above: Performed By: #### L 100.0500, L500.2500 ####[facility] [address] [place], [address] Potassium [Moles/Vol] 5.3 mmol/L High 3.3-5.[address] [facility] Comment on above: Performed By: #### L 100.0500, L500.2500 ####[facility] [address] [place], [address] Sodium [Moles/Vol] 134 mmol/L Normal 133-145 [facility] Comment on above: Performed By: #### L 100.0500, L500.2500 ####[facility] [address] [place], [address] Urea nitrogen [Mass/Vol] 46 mg/dL High 4-19 [facility] Comment on above: Performed By: #### L 100.0500, L500.2500 ####[facility] [address] [place], [address] BUN Normal 4-19 [facility] Comment on above: Result Comment: Canc elled via OM: Order cancelled - Patient discharged Performed By: #### L 500.2500, L100.0100 ####[facility] [address] [place], [address] BUN/CRE Normal 10-20 [facility] Comment on above: Result Comment: Canc elled via OM: Order cancelled - Patient discharged Performed By: #### L 500.2500, L100.0100 ####[facility] [address] [place], [address] Calcium Normal 7.6-11.0 [facility] Comment on above: Result Comment: Canc elled via OM: Order cancelled - Patient discharged Performed By: #### L 500.2500, L100.0100 ####[facility] [address] [place], [address] CL Normal 98-107 [facility] Comment on above: Result Comment: Canc elled via OM: Order cancelled - Patient discharged Performed By: #### L 500.2500, L100.0100 ####[facility] [address] [place], [address] CO2 Normal 21.0-32.0 [facility] Comment on above: Result Comment: Canc elled via OM: Order cancelled - Patient discharged Performed By: #### L 500.2500, L100.0100 ####[facility] [address] [place], [address] CREAT,SERUM Normal 0.70-1.20 [facility] Comment on above: Result Comment: Canc elled via OM: Order cancelled - Patient discharged Performed By: #### L 500.2500, L100.0100 ####[facility] [address] [place], [address] eGFR Normal >60 [facility] Comment on above: Result Comment: Canc elled via OM: Order cancelled - Patient discharged Performed By: #### L 500.2500, L100.0100 ####[facility] [address] [place], [address] GAP Normal 5-15 [facility] Comment on above: Result Comment: Canc elled via OM: Order cancelled - Patient discharged Performed By: #### L 500.2500, L100.0100 ####[facility] [address] [place], [address] GLU Normal 70-99 [facility] Comment on above: Result Comment: Canc elled via OM: Order cancelled - Patient discharged Performed By: #### L 500.2500, L100.0100 ####[facility] [address] [place], [address] Potassium Normal 3.5-5.1 [facility] Comment on above: Result Comment: Canc elled via OM: Order cancelled - Patient discharged Performed By: #### L 500.2500, L100.0100 ####[facility] [address] [place], [address] Basic Metabolic Profile (BMP) Normal 136-145 [facility] Comment on above: Result Comment: Canc elled via OM: Order cancelled - Patient discharged Performed By: #### L 500.2500, L100.0100 ####[facility] [address] [place], [address] CBC W/Diff, Automatedon 03-0 7-2024 Absolute Neut Normal 2.0-7.7 [facility] Comment on above: Result Comment: Canc elled via OM: Order cancelled - Patient discharged Performed By: #### L 500.2500, L100.0100 ####[facility] [address] [place], [address] HCT Normal 37-47 [facility] Comment on above: Result Comment: Canc elled via OM: Order cancelled - Patient discharged Performed By: #### L 500.2500, L100.0100 ####[facility] [address] [place], [address] HGB Normal 12.0-15.0 [facility] Comment on above: Result Comment: Canc elled via OM: Order cancelled - Patient discharged Performed By: #### L 500.2500, L100.0100 ####[facility] [address] [place], [address] MCH Normal 27.0-32.0 [facility] Comment on above: Result Comment: Canc elled via OM: Order cancelled - Patient discharged Performed By: #### L 500.2500, L100.0100 ####[facility] [address] [place], [address] MCHC Normal 32-36 [facility] Comment on above: Result Comment: Canc elled via OM: Order cancelled - Patient discharged Performed By: #### L 500.2500, L100.0100 ####[facility] [address] [place], [address] MCV Normal 81-99 [facility] Comment on above: Result Comment: Canc elled via OM: Order cancelled - Patient discharged Performed By: #### L 500.2500, L100.0100 ####[facility] [address] [place], [address] NEUT% Normal 47-70 [facility] Comment on above: Result Comment: Canc elled via OM: Order cancelled - Patient discharged Performed By: #### L 500.2500, L100.0100 ####[facility] [address] [place], [address] PLT Normal 150-450 [facility] Comment on above: Result Comment: Canc elled via OM: Order cancelled - Patient discharged Performed By: #### L 500.2500, L100.0100 ####[facility] [address] [place], [address] RBC Normal 4.2-5.4 [facility] Comment on above: Result Comment: Canc elled via OM: Order cancelled - Patient discharged Performed By: #### L 500.2500, L100.0100 ####[facility] [address] [place], [address] RDW CV Normal 11.6-14.6 [facility] Comment on above: Result Comment: Canc elled via OM: Order cancelled - Patient discharged Performed By: #### L 500.2500, L100.0100 ####[facility] [address] [place], [address] RDW SD Normal 35.1-43.9 [facility] Comment on above: Result Comment: Canc elled via OM: Order cancelled - Patient discharged Performed By: #### L 500.2500, L100.0100 ####[facility] [address] [place], [address] WBC Normal 4.4-11.0 [facility] Comment on above: Result Comment: Canc elled via OM: Order cancelled - Patient discharged Performed By: #### L 500.2500, L100.0100 ####[facility] [address] [place], [address] CBC-Complete Blood Cnt No Di ffon 08-02-2024 Erythrocyte distribution width (RBC) [Ratio] 17.5 % High 11.6-14.6 [facility] Comment on above: Performed By: #### L 100.0500, L500.2500 ####[facility] [address] [place], [address] Hematocrit (Bld) [Volume fraction] 23.8 % Low 37-47 [facility] Comment on above: Performed By: #### L 100.0500, L500.2500 ####[facility] [address] [place], [address] Hemoglobin (Bld) [Mass/Vol] 7.1 g/dL Low 12.0-15.0 [facility] Comment on above: Performed By: #### L 100.0500, L500.2500 ####[facility] [address] [place], [address] MCH (RBC) [Entitic mass] 25.8 pg Low 27.0-32.0 [facility] Comment on above: Performed By: #### L 100.0500, L500.2500 ####[facility] [address] [place], [address] MCHC (RBC) [Mass/Vol] 29.8 g/dL Low 32-[address] [facility] Comment on above: Performed By: #### L 100.0500, L500.2500 ####[facility] [address] [place], [address] MCV (RBC) [Entitic vol] 86.5 fL Normal 81-99 [facility] Comment on above: Performed By: #### L 100.0500, L500.2500 ####[facility] [address] [place], [address] Platelet mean volume (Bld) [Entitic vol] 9.6 fL Normal 6.2-12.0 [facility] Comment on above: Performed By: #### L 100.0500, L500.2500 ####[facility] [address] [place], [address] Platelets (Bld) [#/Vol] 284 10*3/uL Normal 150-450 [facility] Comment on above: Performed By: #### L 100.0500, L500.2500 ####[facility] [address] [place], [address] RBC (Bld) [#/Vol] 2.75 10*6/uL Low 4.2-5.4 [facility] Comment on above: Performed By: #### L 100.0500, L500.2500 ####[facility] [address] [place], [address] RDW SD 55.0 fl High 35.1-43.9 [facility] Comment on above: Performed By: #### L 100.0500, L500.2500 ####[facility] [address] [place], [address] WBC (Bld) [#/Vol] 11.7 10*3/uL High 4.4-11.0 [facility] Comment on above: Performed By: #### L 100.0500, L500.2500 ####[facility] [address] [place], [address] HH, Hemoglobin AND Hematocri ton 08-02-2024 Hematocrit (Bld) [Volume fraction] 26.9 % Low 37-47 [facility] Comment on above: Performed By: #### L 100.0600 ####[facility] [address] [place], [address] Hemoglobin (Bld) [Mass/Vol] 7.9 g/dL Low 12.0-15.0 [facility] Comment on above: Performed By: #### L 100.0600 ####[facility] [address] [place], [address] ,Urineon 08-02-2024 Beta HCG ( test) Ql (U) Negative Normal [facility] Comment on above: Order Comment: Anyon chacho has had a period within 12 [id number] Result Comment: Very dilute urine specimens, as indicated by a low specificgravity, may not contain traveling sales representative levels of hCG.If is still suspected, a first morning urinespecimen should be collected 48 hours later and tested. Performed By: #### L 400.7600 ####[facility] [address] [place], [address] Urine testOrdered By: Nick Gallegos on 08-02-2024 HCG ( test) Ql (U) Negative [facility] Urine test Negative [facility] Basic Metabolic Profile (BMP )on 08-01-2024 BUN Normal 4-19 [facility] Comment on above: Result Comment: @CAN CELED Performed By: #### L 500.2500 ####[facility] [address] [place], [address] BUN/CRE Normal 10-20 [facility] Comment on above: Result Comment: @CAN CELED Performed By: #### L 500.2500 ####[facility] [facility] [address] [place], [address] Calcium Normal 7.6-11.0 [facility] Comment on above: Result Comment: @CAN CELED Performed By: #### L 500.2500 ####[facility] [address] [place], [address] CL Normal 98-108 [facility] Comment on above: Result Comment: @CAN CELED Performed By: #### L 500.2500 ####[facility] [address] [place], [address] CO2 Normal 21.0-32.0 [facility] Comment on above: Result Comment: @CAN CELED Performed By: #### L 500.2500 ####[facility] [address] [place], [address] CREAT,SERUM Normal 0.70-1.20 [facility] Comment on above: Result Comment: @CAN CELED Performed By: #### L 500.2500 ####[facility] [address] [place], [address] eGFR Normal >60 [facility] Comment on above: Result Comment: @CAN CELED Performed By: #### L 500.2500 ####[facility] [address] [place], [address] GAP Normal 5-15 [facility] Comment on above: Result Comment: @CAN CELED Performed By: #### L 500.2500 ####[facility] [address] [place], [address] GLU Normal 70-99 [facility] Comment on above: Result Comment: @CAN CELED Performed By: #### L 500.2500 ####[facility] [address] [place], [address] Potassium Normal 3.3-5.1 [facility] Comment on above: Result Comment: @CAN CELED Performed By: #### L 500.2500 ####[facility] [address] [place], [address] Basic Metabolic Profile (BMP) Normal 133-145 [facility] Comment on above: Result Comment: @CAN CELED Performed By: #### L 500.2500 ####[facility] [address] [place], [address] BUN/CRE 34.4 RATIO High 10-20 [facility] Comment on above: Performed By: #### L 500.2500, L100.0500 ####[facility] [address] [place], [address] Calcium [Mass/Vol] 8.8 mg/dL Normal 7.6-11.0 [facility] Comment on above: Performed By: #### L 500.2500, L100.0500 ####[facility] [address] [place], [address] Chloride [Moles/Vol] 97 mmol/L Low 98-108 [facility] Comment on above: Performed By: #### L 500.2500, L100.0500 ####[facility] [address] [place], [address] CO2 [Moles/Vol] 18.2 mmol/L Low 21.0-32.0 [facility] Comment on above: Performed By: #### L 500.2500, L100.0500 ####[facility] [address] [place], [address] Creatinine [Mass/Vol] 1.97 mg/dL High 0.70-1.[address] [facility] Comment on above: Performed By: #### L 500.2500, L100.0500 ####[facility] [address] [place], [address] ECRCL 21.83 ml/min Low 50-250 [facility] Comment on above: Performed By: #### L 500.2500, L100.0500 ####[facility] [address] [place], [address] GAP 13 Normal 5-15 [facility] Comment on above: Performed By: #### L 500.2500, L100.0500 ####[facility] [address] [place], [address] GFR/1.73 sq M.predicted among non-blacks MDRD (S/P/Bld) [Vol rate/Area] 28 mL/min/{1.73_m2} Low >60 [facility] Comment on above: Result Comment: mL/m in/1.73m2 CKD-EPI Creatinine Equation (2020) Performed By: #### L 500.2500, L100.0500 ####[facility] [address] [place], [address] Glucose [Mass/Vol] 75 mg/dL Normal 70-99 [facility] Comment on above: Performed By: #### L 500.2500, L100.0500 ####[facility] [address] [place], [address] Potassium [Moles/Vol] 6.4 mmol/L Invalid Interpretation Code 3.3-5.1 [facility] Comment on above: Result Comment: Crit ical Result(s) Called at:0630 by:WALTER BRITON TO JANAE??Results read back by same. Performed By: #### L 500.2500, L100.0500 ####[facility] [address] [place], [address] Sodium [Moles/Vol] 128 mmol/L Low 133-145 [facility] Comment on above: Performed By: #### L 500.2500, L100.0500 ####[facility] [address] [place], [address] Urea nitrogen [Mass/Vol] 68 mg/dL High 4-19 [facility] Comment on above: Performed By: #### L 500.2500, L100.0500 ####[facility] [address] [place], [address] BUN Normal -19 [facility] Comment on above: Result Comment: Canc elled via OM: Order cancelled - Patient discharged Performed By: #### L 500.2500, L100.0100 ####[facility] [address], [address] BUN/CRE Normal 10-20 [facility] Comment on above: Result Comment: Canc elled via OM: Order cancelled - Patient discharged Performed By: #### L 500.2500, L100.0100 ####[facility] [address] [place], [address] Calcium Normal 7.6-11.0 [facility] Comment on above: Result Comment: Canc elled via OM: Order cancelled - Patient discharged Performed By: #### L 500.2500, L100.0100 ####[facility] [address] [place], [address] CL Normal 98-107 [facility] Comment on above: Result Comment: Canc elled via OM: Order cancelled - Patient discharged Performed By: #### L 500.2500, L100.0100 ####[facility] [address] [place], [address] CO2 Normal 21.0-32.0 [facility] Comment on above: Result Comment: Canc elled via OM: Order cancelled - Patient discharged Performed By: #### L 500.2500, L100.0100 ####[facility] [address] [place], [address] CREAT,SERUM Normal 0.70-1.20 [facility] Comment on above: Result Comment: Canc elled via OM: Order cancelled - Patient discharged Performed By: #### L 500.2500, L100.0100 ####[facility] [address] [place], [address] eGFR Normal >60 [facility] Comment on above: Result Comment: Canc elled via OM: Order cancelled - Patient discharged Performed By: #### L 500.2500, L100.0100 ####[facility] [address] [place], [address] GAP Normal 5-15 [facility] Comment on above: Result Comment: Canc elled via OM: Order cancelled - Patient discharged Performed By: #### L 500.2500, L100.0100 ####[facility] [address] [place], [address] GLU Normal 70-99 [facility] Comment on above: Result Comment: Canc elled via OM: Order cancelled - Patient discharged Performed By: #### L 500.2500, L100.0100 ####[facility] [address] [place], [address] Potassium Normal 3.5-5.1 [facility] Comment on above: Result Comment: Canc elled via OM: Order cancelled - Patient discharged Performed By: #### L 500.2500, L100.0100 ####[facility] [address] [place], [address] Basic Metabolic Profile (BMP) Normal 136-145 [facility] Comment on above: Result Comment: Canc elled via OM: Order cancelled - Patient discharged Performed By: #### L 500.2500, L100.0100 ####[facility] [address] [place], [address] CBC W/Diff, Automatedon 03-0 -2024 Absolute Neut Normal 2.0-7.7 [facility] Comment on above: Result Comment: Canc elled via OM: Order cancelled - Patient discharged Performed By: #### L 500.2500, L100.0100 ####[facility] [address] [place], [address] HCT Normal 37-47 [facility] Comment on above: Result Comment: Canc elled via OM: Order cancelled - Patient discharged Performed By: #### L 500.2500, L100.0100 ####[facility] [address] [place], [address] HGB Normal 12.0-15.0 [facility] Comment on above: Result Comment: Canc elled via OM: Order cancelled - Patient discharged Performed By: #### L 500.2500, L100.0100 ####[facility] [address] [place], [address] MCH Normal 27.0-32.0 [facility] Comment on above: Result Comment: Canc elled via OM: Order cancelled - Patient discharged Performed By: #### L 500.2500, L100.0100 ####[facility] [address] [place], [address] MCHC Normal 32-36 [facility] Comment on above: Result Comment: Canc elled via OM: Order cancelled - Patient discharged Performed By: #### L 500.2500, L100.0100 ####[facility] [address] [place], [address] MCV Normal 81-99 [facility] Comment on above: Result Comment: Canc elled via OM: Order cancelled - Patient discharged Performed By: #### L 500.2500, L100.0100 ####[facility] [address] [place], [address] NEUT% Normal 47-70 [facility] Comment on above: Result Comment: Canc elled via OM: Order cancelled - Patient discharged Performed By: #### L 500.2500, L100.0100 ####[facility] [address] [place], [address] PLT Normal 150-450 [facility] Comment on above: Result Comment: Canc elled via OM: Order cancelled - Patient discharged Performed By: #### L 500.2500, L100.0100 ####[facility] [address] [place], [address] RBC Normal 4.2-5.4 [facility] Comment on above: Result Comment: Canc elled via OM: Order cancelled - Patient discharged Performed By: #### L 500.2500, L100.0100 ####[facility] [address] [place], [address] RDW CV Normal 11.6-14.6 [facility] Comment on above: Result Comment: Canc elled via OM: Order cancelled - Patient discharged Performed By: #### L 500.2500, L100.0100 ####[facility] [address] [place], [address] RDW SD Normal 35.1-43.9 [facility] Comment on above: Result Comment: Canc elled via OM: Order cancelled - Patient discharged Performed By: #### L 500.2500, L100.0100 ####[facility] [address] [place], [address] WBC Normal 4.4-11.0 [facility] Comment on above: Result Comment: Canc elled via OM: Order cancelled - Patient discharged Performed By: #### L 500.2500, L100.0100 ####[facility] [address] [place], [address] CBC-Complete Blood Cnt No Geri jaureguion 08-01-2024 Erythrocyte distribution width (RBC) [Ratio] 17.6 % High 11.6-14.6 [facility] Comment on above: Performed By: #### L 500.2500, L100.0500 ####[facility] [address] [place], [address] Hematocrit (Bld) [Volume fraction] 27.2 % Low 37-47 [facility] Comment on above: Performed By: #### L 500.2500, L100.0500 ####[facility] [address] [place], [address] Hemoglobin (Bld) [Mass/Vol] 8.1 g/dL Low 12.0-15.0 [facility] Comment on above: Performed By: #### L 500.2500, L100.0500 ####[facility] [address] [place], [address] MCH (RBC) [Entitic mass] 26.0 pg Low 27.0-32.0 [facility] Comment on above: Performed By: #### L 500.2500, L100.0500 ####[facility] [address] [place], [address] MCHC (RBC) [Mass/Vol] 29.8 g/dL Low 32-[address] [facility] Comment on above: Performed By: #### L 500.2500, L100.0500 ####[facility] [address] [place], [address] MCV (RBC) [Entitic vol] 87.5 fL Normal 81-99 [facility] Comment on above: Performed By: #### L 500.2500, L100.0500 ####[facility] [address] [place], [address] Platelet mean volume (Bld) [Entitic vol] 9.3 fL Normal 6.2-12.0 [facility] Comment on above: Performed By: #### L 500.2500, L100.0500 ####[facility] [address] [place], [address] Platelets (Bld) [#/Vol] 230 10*3/uL Normal 150-450 [facility] Comment on above: Performed By: #### L 500.2500, L100.0500 ####[facility] [address] [place], [address] RBC (Bld) [#/Vol] 3.11 10*6/uL Low 4.2-5.4 [facility] Comment on above: Performed By: #### L 500.2500, L100.0500 ####[facility] [address] [place], [address] RDW SD 56.1 fl High 35.1-43.9 [facility] Comment on above: Performed By: #### L 500.2500, L100.0500 ####[facility] [address] [place], [address] WBC (Bld) [#/Vol] 17.7 10*3/uL High 4.4-11.0 [facility] Comment on above: Performed By: #### L 500.2500, L100.0500 ####[facility] [address] [place], [address] Consultation - Nephrologyon 08-01-2024 Consultation - Nephrology Normal [facility] MR/CON.PCM.GIon 08-01-2024 MR/CON.PCM.GI Normal [facility] Abdomen/Pelvis W IV Cont ONL Yon 07-31-2024 Abdomen/Pelvis W IV Cont ONLY Normal [facility] Activated partial thrombopla stin time (aPTT) in platelet poor plasma by coagulation aOrdered By: Noah Avery on 07-31-2024 aPTT Coag (PPP) [Time] 42.1 s High 24.1-36.2 [facility] [id number] 07-31-2024 ANTIBODY ID Normal [facility] Comment on above: Order Comment: HGI Result Comment: CFYA Performed By: #### B KENDRA GALINDO, [id number] ####[facility] [address] [place], [address] BRCon 07-31-2024 RC Normal [facility] Comment on above: Result Comment: [id number] ON RC XM [id number] ON RC XM COMPATIBLE Performed By: #### B KENDRA GALINDO, [id number] ####[facility] [address] [place], [address] Basic Metabolic Profile (BMP )on 07-31-2024 BUN Normal 4-19 [facility] Comment on above: Result Comment: Canc elled via OM: Order cancelled - Patient discharged Performed By: #### L 100.0100, L500.2500 ####[facility] [address] [place], [address] BUN/CRE Normal 10-20 [facility] Comment on above: Result Comment: Canc elled via OM: Order cancelled - Patient discharged Performed By: #### L 100.0100, L500.2500 ####[facility] [address] [place], [address] Calcium Normal 7.6-11.0 [facility] Comment on above: Result Comment: Canc elled via OM: Order cancelled - Patient discharged Performed By: #### L 100.0100, L500.2500 ####[facility] [address] [place], [address] CL Normal 98-107 [facility] Comment on above: Result Comment: Canc elled via OM: Order cancelled - Patient discharged Performed By: #### L 100.0100, L500.2500 ####[facility] [address] [place], [address] CO2 Normal 21.0-32.0 [facility] Comment on above: Result Comment: Canc elled via OM: Order cancelled - Patient discharged Performed By: #### L 100.0100, L500.2500 ####[facility] [address] [place], [address] CREAT,SERUM Normal 0.70-1.20 [facility] Comment on above: Result Comment: Canc elled via OM: Order cancelled - Patient discharged Performed By: #### L 100.0100, L500.2500 ####[facility] [address] [place], [address] eGFR Normal >60 [facility] Comment on above: Result Comment: Canc elled via OM: Order cancelled - Patient discharged Performed By: #### L 100.0100, L500.2500 ####[facility] [address] [place], [address] GAP Normal 5-15 [facility] Comment on above: Result Comment: Canc elled via OM: Order cancelled - Patient discharged Performed By: #### L 100.0100, L500.2500 ####[facility] [address] [place], [address] GLU Normal 70-99 [facility] Comment on above: Result Comment: Canc elled via OM: Order cancelled - Patient discharged Performed By: #### L 100.0100, L500.2500 ####[facility] [address] [place], [address] Potassium Normal 3.5-5.1 [facility] Comment on above: Result Comment: Canc elled via OM: Order cancelled - Patient discharged Performed By: #### L 100.0100, L500.2500 ####[facility] [address] [place], [address] Basic Metabolic Profile (BMP) Normal 136-145 [facility] Comment on above: Result Comment: Canc elled via OM: Order cancelled - Patient discharged Performed By: #### L 100.0100, L500.2500 ####[facility] [address] [place], [address] CBC W/Diff, Automatedon 03-0 5-2024 Absolute Lymph 0.40 X10 3/uL Low 0.83-4.51 [facility] Comment on above: Performed By: #### L 100.0100, L501.2450, L500.4050 ####[facility] [address] [place], [address] Absolute Neut 9.3 X10 3/uL High 2.0-7.7 [facility] Comment on above: Performed By: #### L 100.0100, L501.2450, L500.4050 ####[facility] [address] [place], [address] Basophils/100 WBC (Bld) 0.3 % Normal 0-1 [facility] Comment on above: Performed By: #### L 100.0100, L501.2450, L500.4050 ####[facility] [address] [place], [address] Eosinophils/100 WBC (Bld) 0.5 % Normal 0-5 [facility] Comment on above: Performed By: #### L 100.0100, L501.2450, L500.4050 ####[facility] [address] [place], [address] Erythrocyte distribution width (RBC) [Ratio] 17.3 % High 11.6-14.6 [facility] Comment on above: Performed By: #### L 100.0100, L501.2450, L500.4050 ####[facility] [address] [place], [address] Hematocrit (Bld) [Volume fraction] 25.7 % Low 37-47 [facility] Comment on above: Performed By: #### L 100.0100, L501.2450, L500.4050 ####[facility] [address] [place], [address] Hemoglobin (Bld) [Mass/Vol] 7.7 g/dL Low 12.0-15.0 [facility] Comment on above: Performed By: #### L 100.0100, L501.2450, L500.4050 ####[facility] [address] [place], [address] IG% 3.200 High 0.0-0.9 [facility] Comment on above: Result Comment: IG% - Immature Granulocytes (promyelocytes, myelocytes andmetamyelocytes) > 1% indicates that a LEFT SHIFT is Present. Performed By: #### L 100.0100, L501.2450, L500.4050 ####[facility] [address] [place], [address] Lymphocytes/100 WBC (Bld) 3.7 % Low 19-41 [facility] Comment on above: Performed By: #### L 100.0100, L501.2450, L500.4050 ####[facility] [address] [place], [address] MCH (RBC) [Entitic mass] 25.7 pg Low 27.0-32.0 [facility] Comment on above: Performed By: #### L 100.0100, L501.2450, L500.4050 ####[facility] [address] [place], [address] MCHC (RBC) [Mass/Vol] 30.0 g/dL Low 32-[address] [facility] Comment on above: Performed By: #### L 100.0100, L501.2450, L500.4050 ####[facility] [address] [place], [address] MCV (RBC) [Entitic vol] 85.7 fL Normal 81-99 [facility] Comment on above: Performed By: #### L 100.0100, L501.2450, L500.4050 ####[facility] [address] [place], [address] Monocytes/100 WBC (Bld) 5.8 % Normal 0-10 [facility] Comment on above: Performed By: #### L 100.0100, L501.2450, L500.4050 ####[facility] [address] [place], [address] Neutrophils/100 WBC (Bld) 86.5 % High 47-70 [facility] Comment on above: Performed By: #### L 100.0100, L501.2450, L500.4050 ####[facility] [address] [place], [address] Nucleated RBC (Bld) [#/Vol] 0 10*3/uL Normal 0-5 [facility] Comment on above: Performed By: #### L 100.0100, L501.2450, L500.4050 ####[facility] [address] [place], [address] Platelet mean volume (Bld) [Entitic vol] 9.7 fL Normal 6.2-12.0 [facility] Comment on above: Performed By: #### L 100.0100, L501.2450, L500.4050 ####[facility] [address] [place], [address] Platelets (Bld) [#/Vol] 169 10*3/uL Normal 150-450 [facility] Comment on above: Performed By: #### L 100.0100, L501.2450, L500.4050 ####[facility] [address] [place], [address] RBC (Bld) [#/Vol] 3.00 10*6/uL Low 4.2-5.4 [facility] Comment on above: Performed By: #### L 100.0100, L501.2450, L500.4050 ####[facility] [address] [place], [address] RDW SD 53.7 fl High 35.1-43.9 [facility] Comment on above: Performed By: #### L 100.0100, L501.2450, L500.4050 ####[facility] [address] [place], [address] WBC (Bld) [#/Vol] 10.7 10*3/uL Normal 4.4-11.0 [facility] Comment on above: Performed By: #### L 100.0100, L501.2450, L500.4050 ####[facility] [address] [place], [address] Absolute Neut Normal 2.0-7.7 [facility] Comment on above: Result Comment: Canc elled via OM: Order cancelled - Patient discharged Performed By: #### L 100.0100, L500.2500 ####[facility] [address] [place], [address] HCT Normal 37-47 [facility] Comment on above: Result Comment: Canc elled via OM: Order cancelled - Patient discharged Performed By: #### L 100.0100, L500.2500 ####[facility] [address] [place], [address] HGB Normal 12.0-15.0 [facility] Comment on above: Result Comment: Canc elled via OM: Order cancelled - Patient discharged Performed By: #### L 100.0100, L500.2500 ####[facility] [address] [place], [address] MCH Normal 27.0-32.0 [facility] Comment on above: Result Comment: Canc elled via OM: Order cancelled - Patient discharged Performed By: #### L 100.0100, L500.2500 ####[facility] [address] [place], [address] MCHC Normal 32-36 [facility] Comment on above: Result Comment: Canc elled via OM: Order cancelled - Patient discharged Performed By: #### L 100.0100, L500.2500 ####[facility] [address] [place], [address] MCV Normal 81-99 [facility] Comment on above: Result Comment: Canc elled via OM: Order cancelled - Patient discharged Performed By: #### L 100.0100, L500.2500 ####[facility] [address] [place], [address] NEUT% Normal 47-70 [facility] Comment on above: Result Comment: Canc elled via OM: Order cancelled - Patient discharged Performed By: #### L 100.0100, L500.2500 ####[facility] [address] [place], [address] PLT Normal 150-450 [facility] Comment on above: Result Comment: Canc elled via OM: Order cancelled - Patient discharged Performed By: #### L 100.0100, L500.2500 ####[facility] [address] [place], [address] RBC Normal 4.2-5.4 [facility] Comment on above: Result Comment: Canc elled via OM: Order cancelled - Patient discharged Performed By: #### L 100.0100, L500.2500 ####[facility] [address] [place], [address] RDW CV Normal 11.6-14.6 [facility] Comment on above: Result Comment: Canc elled via OM: Order cancelled - Patient discharged Performed By: #### L 100.0100, L500.2500 ####[facility] [address] [place], [address] RDW SD Normal 35.1-43.9 [facility] Comment on above: Result Comment: Canc elled via OM: Order cancelled - Patient discharged Performed By: #### L 100.0100, L500.2500 ####[facility] [address] [place], [address] WBC Normal 4.4-11.0 [facility] Comment on above: Result Comment: Canc elled via OM: Order cancelled - Patient discharged Performed By: #### L 100.0100, L500.2500 ####[facility] [address] [place], [address] Comprehensive Metabolic Prof ilon 07-31-2024 Albumin [Mass/Vol] 2.3 g/dL Low 3.4-4.8 [facility] Comment on above: Performed By: #### L 100.0100, L501.2450, L500.4050 ####[facility] [address] [place], [address] Albumin/Globulin [Mass ratio] 0.6 {ratio} Low 0.9-2.4 [facility] Comment on above: Performed By: #### L 100.0100, L501.2450, L500.4050 ####[facility] [address] [place], [address] ALK PHOS 66 U/L Normal 35-104 [facility] Comment on above: Performed By: #### L 100.0100, L501.2450, L500.4050 ####[facility] [address] [place], [address] ALT [Catalytic activity/Vol] U/L Normal <=34 [facility] Comment on above: Performed By: #### L 100.0100, L501.2450, L500.4050 ####[facility] [address] [place], [address] AST [Catalytic activity/Vol] 20 U/L Normal <=31 [facility] Comment on above: Performed By: #### L 100.0100, L501.2450, L500.4050 ####[facility] [address] [place], [address] Bilirubin [Mass/Vol] 0.19 mg/dL Normal 0.00-1.30 [facility] Comment on above: Performed By: #### L 100.0100, L501.2450, L500.4050 ####[facility] [address] [place], [address] BUN/CRE 30.7 RATIO High 10-20 [facility] Comment on above: Performed By: #### L 100.0100, L501.2450, L500.4050 ####[facility] [address] [place], [address] Calcium [Mass/Vol] 9.0 mg/dL Normal 7.6-11.0 [facility] Comment on above: Performed By: #### L 100.0100, L501.2450, L500.4050 ####[facility] [address] [place], [address] Chloride [Moles/Vol] 95 mmol/L Low 98-108 [facility] Comment on above: Performed By: #### L 100.0100, L501.2450, L500.4050 ####[facility] [address] [place], [address] CO2 [Moles/Vol] 24.7 mmol/L Normal 21.0-32.0 [facility] Comment on above: Performed By: #### L 100.0100, L501.2450, L500.4050 ####[facility] [address] [place], [address] Creatinine [Mass/Vol] 1.88 mg/dL High 0.70-1.[address] [facility] Comment on above: Performed By: #### L 100.0100, L501.2450, L500.4050 ####[facility] [address] [place], [address] ECRCL 24.29 ml/min Low 50-250 [facility] Comment on above: Performed By: #### L 100.0100, L501.2450, L500.4050 ####[facility] [address] [place], [address] GAP 10 Normal 5-15 [facility] Comment on above: Performed By: #### L 100.0100, L501.2450, L500.4050 ####[facility] [address] [place], [address] GFR/1.73 sq M.predicted among non-blacks MDRD (S/P/Bld) [Vol rate/Area] 30 mL/min/{1.73_m2} Low >60 [facility] Comment on above: Result Comment: mL/m in/1.73m2 CKD-EPI Creatinine Equation (2020) Performed By: #### L 100.0100, L501.2450, L500.4050 ####[facility] [address] [place], [address] Globulin (S) [Mass/Vol] 3.6 g/dL Normal 2.2-4.2 [facility] Comment on above: Performed By: #### L 100.0100, L501.2450, L500.4050 ####[facility] [address] [place], [address] Glucose [Mass/Vol] 110 mg/dL High 70-99 [facility] Comment on above: Performed By: #### L 100.0100, L501.2450, L500.4050 ####[facility] [address] [place], [address] Potassium [Moles/Vol] 5.7 mmol/L High 3.3-5.[address] [facility] Comment on above: Performed By: #### L 100.0100, L501.2450, L500.4050 ####[facility] [address] [place], [address] Sodium [Moles/Vol] 129 mmol/L Low 133-145 [facility] Comment on above: Performed By: #### L 100.0100, L501.2450, L500.4050 ####[facility] [address] [place], [address] T PROT 5.9 g/dL Normal 5.9-8.4 [facility] Comment on above: Performed By: #### L 100.0100, L501.2450, L500.4050 ####[facility] [address] [place], [address] Urea nitrogen [Mass/Vol] 58 mg/dL High 4-19 [facility] Comment on above: Performed By: #### L 100.0100, L501.2450, L500.4050 ####[facility] [address] [place], [address] Emergency Department Summary on 07-31-2024 Emergency Department Summary Normal [facility] H AND P Exam - Hospitaliston 07-31-2024 H&P Exam - Hospitalist Normal [facility] International normalized rat io (INR) calculationOrdered By: Noah Avery on 07-31-2024 International normalized ratio (INR) calculation 1.2 [facility] Lipaseon 07-31-2024 Lipase [Catalytic activity/Vol] 34 U/L Normal 13-75 [facility] Comment on above: Result Comment: Jorge L patterson note:LIPASE revised reference range effective 22.New Lipase methodology. Expected to produce lower valuesthan the previous assay method.NEW Reference Range: 13 - 75 U/L Performed By: #### L 100.0100, L501.2450, L500.4050 ####[facility] [address] [place], [address] Lipase measurementOrdered By : Noah Avery on 07-31-2024 Lipase measurement 34 U/L 13-75 [facility] Partial Thromboplast Timeon 07-31-2024 aPTT Coag (Bld) [Time] 42.1 s High 24.1-36.2 [facility] Comment on above: Performed By: #### L 300.4310, L300.3900 ####[facility] [address] [place], [address] Prothrombin Time w/INRon INR Coag (PPP) [Relative time] 1.2 {INR} Normal [facility] Comment on above: Performed By: #### L 300.4310, L300.3900 ####[facility] [address] [place], [address] PT Coag (PPP) [Time] 15.3 s High 11.7-14.9 [facility] Comment on above: Performed By: #### L 300.4310, L300.3900 ####[facility] [address] [place], [address] Prothrombin timeOrdered By: Noah Avery on 07-31-2024 PT Coag (PPP) [Time] 15.3 s High 11.7-14.9 [facility] Prothrombin time 15.3 SECONDS High 11.7-14.9 [facility] Type AND Screenon 07-31-2024 ABO and Rh group Nom (Bld) Blood group O Rh(D) positive Normal [facility] Comment on above: Order Comment: HGI Performed By: #### B TS, BRC, [id number] ####[facility] [address] [place], [address] aPTT Coag (PPP) [Time]Ordere d By: Noah Avery on 07-31-2024 Activated partial thromboplastin time (aPTT) in platelet poor plasma by coagulation a 42.1 Seconds High 24.1-36.2 [facility] Anion gap [Moles/Vol]Ordered By: Millie Massey on 07-30-2024 Anion gap in Serum or Plasma 11 - [facility] Anion gap in Serum or Plasma Ordered By: Millie Massey on 07-30-2024 Anion gap [Moles/Vol] 11 mmol/L - [facility] BUN/creatinine ratioOrdered By: Millie Massey on 07-30-2024 Urea nitrogen/Creatinine [Mass ratio] 26.1 mg/mg High 10- [facility] BUN/creatinine ratio 26.1 RATIO High 10-20 [facility] Basic Metabolic Profile (BMP )on 07-30-2024 BUN/CRE 26.1 RATIO High 10-20 [facility] Comment on above: Order Comment: 103.2 Performed By: #### L 506.1001, L503.0106, L500.2500, L500.4100, L501.5200, L100.0500, L501.9520 ####[facility] [address] [place], [address]45) Calcium [Mass/Vol] 8.6 mg/dL Normal 7.6-11.0 [facility] Comment on above: Order Comment: 103.2 Performed By: #### L 506.1001, L503.0106, L500.2500, L500.4100, L501.5200, L100.0500, L501.9520 ####[facility] [address] [place], [address] Chloride [Moles/Vol] 98 mmol/L Normal 98-108 [facility] Comment on above: Order Comment: 103.2 Performed By: #### L 506.1001, L503.0106, L500.2500, L500.4100, L501.5200, L100.0500, L501.9520 ####[facility] [address] [place], [address] CO2 [Moles/Vol] 24.2 mmol/L Normal 21.0-32.0 [facility] Comment on above: Order Comment: 103.2 Performed By: #### L 506.1001, L503.0106, L500.2500, L500.4100, L501.5200, L100.0500, L501.9520 ####[facility] [address] [place], [address] Creatinine [Mass/Vol] 1.47 mg/dL High 0.70-1.[address] [facility] Comment on above: Order Comment: 103.2 Performed By: #### L 506.1001, L503.0106, L500.2500, L500.4100, L501.5200, L100.0500, L501.9520 ####[facility] [address] [place], [address] GAP 11 Normal 5-15 [facility] Comment on above: Order Comment: 103.2 Performed By: #### L 506.1001, L503.0106, L500.2500, L500.4100, L501.5200, L100.0500, L501.9520 ####[facility] [address] [place], [address] GFR/1.73 sq M.predicted among non-blacks MDRD (S/P/Bld) [Vol rate/Area] 40 mL/min/{1.73_m2} Low >60 [facility] Comment on above: Order Comment: 103.2 Result Comment: mL/m in/1.73m2 CKD-EPI Creatinine Equation (2020) Performed By: #### L 506.1001, L503.0106, L500.2500, L500.4100, L501.5200, L100.0500, L501.9520 ####[facility] [address] [place], [address] Glucose [Mass/Vol] 96 mg/dL Normal 70-99 [facility] Comment on above: Order Comment: 103.2 Performed By: #### L 506.1001, L503.0106, L500.2500, L500.4100, L501.5200, L100.0500, L501.9520 ####[facility] [address] [place], [address] Potassium [Moles/Vol] 4.4 mmol/L Normal 3.3-5.[address] [facility] Comment on above: Order Comment: 103.2 Performed By: #### L 506.1001, L503.0106, L500.2500, L500.4100, L501.5200, L100.0500, L501.9520 ####[facility] [address] [place], [address] Sodium [Moles/Vol] 133 mmol/L Normal 133-145 [facility] Comment on above: Order Comment: 103.2 Performed By: #### L 506.1001, L503.0106, L500.2500, L500.4100, L501.5200, L100.0500, L501.9520 ####[facility] [address] [place], [address] Urea nitrogen [Mass/Vol] 38 mg/dL High 4-19 [facility] Comment on above: Order Comment: 103.2 Performed By: #### L 506.1001, L503.0106, L500.2500, L500.4100, L501.5200, L100.0500, L501.9520 ####[facility] [address] [place], [address] BUN Normal 4-19 [facility] Comment on above: Result Comment: Canc elled via OM: Order cancelled - Patient discharged Performed By: #### L 500.2500, L100.0100 ####[facility] [address] [place], [address] BUN/CRE Normal 10-20 [facility] Comment on above: Result Comment: Canc elled via OM: Order cancelled - Patient discharged Performed By: #### L 500.2500, L100.0100 ####[facility] [address] [place], [address] Calcium Normal 7.6-11.0 [facility] Comment on above: Result Comment: Canc elled via OM: Order cancelled - Patient discharged Performed By: #### L 500.2500, L100.0100 ####[facility] [address] [place], [address] CL Normal 98-107 [facility] Comment on above: Result Comment: Canc elled via OM: Order cancelled - Patient discharged Performed By: #### L 500.2500, L100.0100 ####[facility] [address] [place], [address] CO2 Normal 21.0-32.0 [facility] Comment on above: Result Comment: Canc elled via OM: Order cancelled - Patient discharged Performed By: #### L 500.2500, L100.0100 ####[facility] [address] [place], [address] CREAT,SERUM Normal 0.70-1.20 [facility] Comment on above: Result Comment: Canc elled via OM: Order cancelled - Patient discharged Performed By: #### L 500.2500, L100.0100 ####[facility] [address] [place], [address] eGFR Normal >60 [facility] Comment on above: Result Comment: Canc elled via OM: Order cancelled - Patient discharged Performed By: #### L 500.2500, L100.0100 ####[facility] [address] [place], [address] GAP Normal 5-15 [facility] Comment on above: Result Comment: Canc elled via OM: Order cancelled - Patient discharged Performed By: #### L 500.2500, L100.0100 ####[facility] [address] [place], [address] GLU Normal 70-99 [facility] Comment on above: Result Comment: Canc elled via OM: Order cancelled - Patient discharged Performed By: #### L 500.2500, L100.0100 ####[facility] [address] [place], [address] Potassium Normal 3.5-5.1 [facility] Comment on above: Result Comment: Canc elled via OM: Order cancelled - Patient discharged Performed By: #### L 500.2500, L100.0100 ####[facility] [address] [place], [address] Basic Metabolic Profile (BMP) Normal 136-145 [facility] Comment on above: Result Comment: Canc elled via OM: Order cancelled - Patient discharged Performed By: #### L 500.2500, L100.0100 ####[facility] [address] [place], [address] CBC W/Diff, Automatedon 03-0 -2024 Absolute Neut Normal 2.0-7.7 [facility] Comment on above: Result Comment: Canc elled via OM: Order cancelled - Patient discharged Performed By: #### L 500.2500, L100.0100 ####[facility] [address] [place], [address] HCT Normal 37-47 [facility] Comment on above: Result Comment: Canc elled via OM: Order cancelled - Patient discharged Performed By: #### L 500.2500, L100.0100 ####[facility] [address] [place], [address] HGB Normal 12.0-15.0 [facility] Comment on above: Result Comment: Canc elled via OM: Order cancelled - Patient discharged Performed By: #### L 500.2500, L100.0100 ####[facility] [address] [place], [address] MCH Normal 27.0-32.0 [facility] Comment on above: Result Comment: Canc elled via OM: Order cancelled - Patient discharged Performed By: #### L 500.2500, L100.0100 ####[facility] [address] [place], [address] MCHC Normal 32-36 [facility] Comment on above: Result Comment: Canc elled via OM: Order cancelled - Patient discharged Performed By: #### L 500.2500, L100.0100 ####[facility] [address] [place], [address] MCV Normal 81-99 [facility] Comment on above: Result Comment: Canc elled via OM: Order cancelled - Patient discharged Performed By: #### L 500.2500, L100.0100 ####[facility] [address] [place], [address] NEUT% Normal 47-70 [facility] Comment on above: Result Comment: Canc elled via OM: Order cancelled - Patient discharged Performed By: #### L 500.2500, L100.0100 ####[facility] [address] [place], [address] PLT Normal 150-450 [facility] Comment on above: Result Comment: Canc elled via OM: Order cancelled - Patient discharged Performed By: #### L 500.2500, L100.0100 ####[facility] [address] [place], [address] RBC Normal 4.2-5.4 [facility] Comment on above: Result Comment: Canc elled via OM: Order cancelled - Patient discharged Performed By: #### L 500.2500, L100.0100 ####[facility] [address] [place], [address] RDW CV Normal 11.6-14.6 [facility] Comment on above: Result Comment: Canc elled via OM: Order cancelled - Patient discharged Performed By: #### L 500.2500, L100.0100 ####[facility] [address] [place], [address] RDW SD Normal 35.1-43.9 [facility] Comment on above: Result Comment: Canc elled via OM: Order cancelled - Patient discharged Performed By: #### L 500.2500, L100.0100 ####[facility] [address] [place], [address] WBC Normal 4.4-11.0 [facility] Comment on above: Result Comment: Canc elled via OM: Order cancelled - Patient discharged Performed By: #### L 500.2500, L100.0100 ####[facility] [address] [place], [address] CBC-Complete Blood Cnt No Di ffon 07-30-2024 Erythrocyte distribution width (RBC) [Ratio] 17.2 % High 11.6-14.6 [facility] Comment on above: Order Comment: 103.2 Performed By: #### L 506.1001, L503.0106, L500.2500, L500.4100, L501.5200, L100.0500, L501.9520 ####[facility] [address] [place], [address] Hematocrit (Bld) [Volume fraction] 26.4 % Low 37-47 [facility] Comment on above: Order Comment: 103.2 Performed By: #### L 506.1001, L503.0106, L500.2500, L500.4100, L501.5200, L100.0500, L501.9520 ####[facility] [address] [place], [address] Hemoglobin (Bld) [Mass/Vol] 7.8 g/dL Low 12.0-15.0 [facility] Comment on above: Order Comment: 103.2 Performed By: #### L 506.1001, L503.0106, L500.2500, L500.4100, L501.5200, L100.0500, L501.9520 ####[facility] [address] [place], [address] MCH (RBC) [Entitic mass] 25.7 pg Low 27.0-32.0 [facility] Comment on above: Order Comment: 103.2 Performed By: #### L 506.1001, L503.0106, L500.2500, L500.4100, L501.5200, L100.0500, L501.9520 ####[facility] [address] [place], [address] MCHC (RBC) [Mass/Vol] 29.5 g/dL Low 32-[address] [facility] Comment on above: Order Comment: 103.2 Performed By: #### L 506.1001, L503.0106, L500.2500, L500.4100, L501.5200, L100.0500, L501.9520 ####[facility] [address] [place], [address] MCV (RBC) [Entitic vol] 87.1 fL Normal 81-99 [facility] Comment on above: Order Comment: 103.2 Performed By: #### L 506.1001, L503.0106, L500.2500, L500.4100, L501.5200, L100.0500, L501.9520 ####[facility] [address] [place], [address] Platelet mean volume (Bld) [Entitic vol] 9.0 fL Normal 6.2-12.0 [facility] Comment on above: Order Comment: 103.2 Performed By: #### L 506.1001, L503.0106, L500.2500, L500.4100, L501.5200, L100.0500, L501.9520 ####[facility] [address] [place], [address] Platelets (Bld) [#/Vol] 213 10*3/uL Normal 150-450 [facility] Comment on above: Order Comment: 103.2 Performed By: #### L 506.1001, L503.0106, L500.2500, L500.4100, L501.5200, L100.0500, L501.9520 ####[facility] [address] [place], [address] RBC (Bld) [#/Vol] 3.03 10*6/uL Low 4.2-5.4 [facility] Comment on above: Order Comment: 103.2 Performed By: #### L 506.1001, L503.0106, L500.2500, L500.4100, L501.5200, L100.0500, L501.9520 ####[facility] [address] [place], [address] RDW SD 54.9 fl High 35.1-43.9 [facility] Comment on above: Order Comment: 103.2 Performed By: #### L 506.1001, L503.0106, L500.2500, L500.4100, L501.5200, L100.0500, L501.9520 ####[facility] [address] [place], [address] WBC (Bld) [#/Vol] 10.8 10*3/uL Normal 4.4-11.0 [facility] Comment on above: Order Comment: 103.2 Performed By: #### L 506.1001, L503.0106, L500.2500, L500.4100, L501.5200, L100.0500, L501.9520 ####[facility] [address] [place], [address] Calcium [Mass/Vol]Ordered By : Millie Massey on 07-30-2024 Serum or plasma calcium measurement (mass/volume) 8.6 mg/dL 7.6-11.0 [facility] [facility] Calculated very low density lipoprotein (VLDL) cholesterol measurementOrdered By: Millie Massey on 07-30-2024 Calculated very low density lipoprotein (VLDL) cholesterol measurement 16 mg/dL 5-40 [facility] Calculated very low density lipoprotein (VLDL) cholesterol measurement 16 mg/dL 5-40 [facility] Carbon dioxide, total [Moles /volume] in Central venous bloodOrdered By: Millie Massey on 07-30-2024 CO2 [Moles/Vol] 24.2 mmol/L 21.0-32.0 [facility] Carbon dioxide, total [Moles/volume] in Central venous blood 24.2 mmol/L 21.0-32.0 [facility] Chloride assayOrdered By: Carter Massey on 07-30-2024 Chloride [Moles/Vol] 98 mmol/L 98-108 [facility] Chloride assay 98 mmol/L 98-108 [facility] Cholesterol [Mass/Vol]Ordere d By: Millie Massey on 07-30-2024 Serum or plasma cholesterol measurement (mass/volume) 51 mg/dL <201 [facility] Cholesterol in HDL [Mass/Vol ]Ordered By: Millie Massey on 07-30-2024 Serum or plasma cholesterol in HDL measurement (mass/volume) 22 mg/dL Low >40 [facility] Cobalamin (Vitamin B12) [Mas s/Vol]Ordered By: Millie Massey on 07-30-2024 Vitamin B12 ser/plas 452 pg/mL 180-914 [facility] Creatinine [Mass/Vol]Ordered By: Millie Massey on 07-30-2024 Serum creatinine measurement (mass/volume) 1.47 mg/dL High 0.70-1.20 [facility] Erythrocyte distribution wid th (RBC) [Ratio]Ordered By: Millie Massey on 07-30-2024 Erythrocyte distribution width ratio 17.2 % High 11.6-14.6 [facility] Erythrocyte distribution wid th ratioOrdered By: Millie Massey on 07-30-2024 Erythrocyte distribution width (RBC) [Ratio] 17.2 % High 11.6-14.6 [facility] Erythrocyte distribution wid th standard deviationOrdered By: Millie Massey on 07-30-2024 Erythrocyte distribution width (RBC) [Ratio] 54.9 fl High 35.1-43.9 [facility] Erythrocyte distribution width standard deviation 54.9 fl High 35.1-43.9 [facility] GFR/1.73 sq M.predicted víctor g non-blacks MDRD (S/P/Bld) [Vol rate/Area]Ordered By: Millie Massey on 07-30-2024 Glomerular filtration rate (GFR) estimation/1.73 sq m using serum, plasma, or whole b 40 Low >60 [facility] Glomerular filtration rate ( GFR) estimation/1.73 sq m using serum, plasma, or whole bOrdered By: Millie Massey on 07-30-2024 GFR/1.73 sq M.predicted among non-blacks MDRD (S/P/Bld) [Vol rate/Area] 40 mL/min/{1.73_m2} Low >60 [facility] Glucose [Mass/Vol]Ordered By : Millie Massey on 07-30-2024 Serum glucose measurement (mass/volume) 96 mg/dL 70-99 [facility] Hematocrit Auto (Bld) [Volum e fraction]Ordered By: Millie Massey on 07-30-2024 Hematocrit (Bld) [Volume fraction] 26.4 % Low 37-47 [facility] Automated blood hematocrit (percentage) 26.4 % Low 37-47 [facility] Hemoglobin measurementOrdere d By: Millie Massey on 07-30-2024 Hemoglobin (Bld) [Mass/Vol] 7.8 g/dL Low 12.0-15.0 [facility] Hemoglobin measurement 7.8 g/dL Low 12.0-15.0 [facility] L503.0106on 07-30-2024 Cobalamin (Vitamin B12) [Mass/Vol] 452 pg/mL Normal 180-914 [facility] Comment on above: Order Comment: 103.2 Performed By: #### L 506.1001, L503.0106, L500.2500, L500.4100, L501.5200, L100.0500, L501.9520 ####[facility] [address] [place], [address] L506.1001on 07-30-2024 Vitamin D 25-OH 27.8 ng/mL Low 30-100 [facility] Comment on above: Order Comment: 103.2 Result Comment: Kelly min D StatusDeficiency: <20 ng/mL (50nmol/L)Insufficiency: 20-30 ng/mL (50-75 nmol/L)Sufficiency: 30-100 ng/mL (75-250 nmol/L)Toxicity: >100 ng/mL (>250 nmol/L) Performed By: #### L 506.1001, L503.0106, L500.2500, L500.4100, L501.5200, L100.0500, L501.9520 ####[facility] [address] [place], [address] LDL calc ser/plasOrdered By: Millie Massey on 07-30-2024 Cholesterol in LDL [Mass/Vol] 13 mg/dL [facility] LDL calc ser/plas 13 mg/dL [facility] Lipid Profileon 07-30-2024 CHOL:HDL 2.32 Normal [facility] Comment on above: Order Comment: 103.2 Performed By: #### L 506.1001, L503.0106, L500.2500, L500.4100, L501.5200, L100.0500, L501.9520 ####[facility] [address] [place], [address] Cholesterol [Mass/Vol] 51 mg/dL Normal <=200 [facility] Comment on above: Order Comment: 103.2 Result Comment: Chol esterol level, Desirable <200 mg/dLBorderline high cholesterol 200-239 mg/dLHigh cholesterol >=240 mg/dLRecommendations of the NCEP Adult Treatment Panel for thefollowing risk-cutoff thresholds for the [place] Americanpulation. Performed By: #### L 506.1001, L503.0106, L500.2500, L500.4100, L501.5200, L100.0500, L501.9520 ####[facility] [address] [place], [address] Cholesterol in HDL [Mass/Vol] 22 mg/dL Low [facility] Comment on above: Order Comment: 103.2 Result Comment: Lucila onal Cholesterol Education Program (NCEP) guidelines:<40 mg/dL: Low HDL-cholesterol (major risk factor for CHD)>= 60 mg/dL: High HDL-cholesterol (negative risk factor forCHD)HDL-cholesterol is affected by a number of factors, e.g.smoking, exercise, hormones, sex and age. Performed By: #### L 506.1001, L503.0106, L500.2500, L500.4100, L501.5200, L100.0500, L501.9520 ####[facility] [address] [place], [address] Cholesterol in LDL [Mass/Vol] 13 mg/dL Normal [facility] Comment on above: Order Comment: 103.2 Result Comment: Bord xjakso=897-693 mg/dL Higher Vprb=733 mg/dL or greater Performed By: #### L 506.1001, L503.0106, L500.2500, L500.4100, L501.5200, L100.0500, L501.9520 ####[facility] [address] [place], [address] Cholesterol in VLDL [Mass/Vol] 16 mg/dL Normal 5-40 [facility] Comment on above: Order Comment: 103.2 Performed By: #### L 506.1001, L503.0106, L500.2500, L500.4100, L501.5200, L100.0500, L501.9520 ####[facility] [address] [place], [place], [id number] Triglyceride [Mass/Vol] 82 mg/dL Normal [facility] Comment on above: Order Comment: 103.2 Result Comment: The drugs N-Acetylcysteine and Metamizole may falselydepress this assay.Normal range: <150 mg/dLBorderline High: 150-199 mg/dLHigh: 200-499 mg/dLVery High: >500 mg/dL Performed By: #### L 506.1001, L503.0106, L500.2500, L500.4100, L501.5200, L100.0500, L501.9520 ####[facility] [address] [place], [address] MCV (RBC) [Entitic vol]Order ed By: Millie Massey on 07-30-2024 MCV (mean corpuscular volume) determination 87.1 fL 81-99 [facility] MCV (mean corpuscular volume ) determinationOrdered By: Millie Massey on 07-30-2024 MCV (RBC) [Entitic vol] 87.1 fL 81-99 [facility] Magnesiumon 07-30-2024 Magnesium [Mass/Vol] 1.9 mg/dL Normal 1.5-2.2 [facility] Comment on above: Order Comment: 103.2 Performed By: #### L 506.1001, L503.0106, L500.2500, L500.4100, L501.5200, L100.0500, L501.9520 ####[facility] [address] [place], [place], [id number] Magnesium (Unsp spec) [Mass/ Vol]Ordered By: Millie Massey on 07-30-2024 Magnesium measurement (mass/volume) 1.9 mg/dL 1.5-2.2 [facility] Magnesium measurement (mass/ volume)Ordered By: Millie Massey on 07-30-2024 Magnesium (Unsp spec) [Mass/Vol] 1.9 mg/dL 1.5-2.2 [facility] Mean corpuscular hemoglobin (MCH) determinationOrdered By: Millie Massey on 07-30-2024 MCH (RBC) [Entitic mass] 25.7 pg Low 27.0-32.0 [facility] Mean corpuscular hemoglobin (MCH) determination 25.7 pg Low 27.0-32.0 [facility] Mean corpuscular hemoglobin concentration (MCHC) determinationOrdered By: Millie Massey on 07-30-2024 Mean corpuscular hemoglobin concentration (MCHC) determination 29.5 g/dL Low 32-36 [facility] Mean platelet volume determi nationOrdered By: Millie Massey on 07-30-2024 Mean platelet volume determination 9.0 fl 6.2-12.0 [facility] Platelet countOrdered By: Carter Massey on 07-30-2024 Platelets (Bld) [#/Vol] 213 10*3/uL 150-450 [facility] Platelet count 213 K/mm3 150-450 [facility] Potassium (Unsp spec) [Mass/ Vol]Ordered By: Millie Massey on 07-30-2024 Potassium measurement (mass/volume) 4.4 mmol/L 3.3-5.1 [facility] Potassium measurement (mass/ volume)Ordered By: Millie Massey on 07-30-2024 Potassium (Unsp spec) [Mass/Vol] 4.4 mmol/L 3.3-5.1 [facility] RBC Auto (Bld) [#/Vol]Ordere d By: Millie Massey on 07-30-2024 RBC (Bld) [#/Vol] 3.03 10*6/uL Low 4.2-5.4 [facility] Automated blood erythrocyte count 3.03 M/mm3 Low 4.2-5.4 [facility] Screening total cholesterol/ high density lipoprotein (HDL) cholesterol ratioOrdered By: Millie Massey on 07-30-2024 Screening total cholesterol/high density lipoprotein (HDL) cholesterol ratio 2.32 [facility] Serum creatinine measurement (mass/volume)Ordered By: Millie Massey on 07-30-2024 Creatinine [Mass/Vol] 1.47 mg/dL High 0.70-1.[address] [facility] Serum glucose measurement (m ass/volume)Ordered By: Millie Massey on 07-30-2024 Glucose [Mass/Vol] 96 mg/dL 70-99 [facility] Serum or plasma calcium megan urement (mass/volume)Ordered By: Millie Massey on 07-30-2024 Calcium [Mass/Vol] 8.6 mg/dL 7.6-11.0 [facility] Serum or plasma cholesterol in HDL measurement (mass/volume)Ordered By: Millie Massey on 07-30-2024 Cholesterol in HDL [Mass/Vol] 22 mg/dL Low >40 [facility] Serum or plasma cholesterol measurement (mass/volume)Ordered By: Millie Massey on 07-30-2024 Cholesterol [Mass/Vol] 51 mg/dL <201 [facility] Serum or plasma urea nitroge n measurement (mass/volume)Ordered By: Millie Massey on 07-30-2024 Urea nitrogen [Mass/Vol] 38 mg/dL High 4-19 [facility] Sodium levelOrdered By: Silvana Massey on 07-30-2024 Sodium [Moles/Vol] 133 mmol/L 133-145 [facility] Sodium level 133 mmol/L 133-145 [facility] TSH DL <= 0.005 mIU/L QnOrde red By: Millie Massey on 07-30-2024 TSH Qn 0.578 uIU/mL 0.300-4.20 0 [facility] Serum or plasma thyroid stimulating hormone (TSH) measurement by high sensitivity met 0.578 uIU/mL 0.300-4.20 0 [facility] Thyroid Stim Hormone (TSH)on 07-30-2024 TSH 0.578 uIU/mL Normal 0.300-4.20 0 [facility] Comment on above: Order Comment: 103.2 Performed By: #### L 506.1001, L503.0106, L500.2500, L500.4100, L501.5200, L100.0500, L501.9520 ####[facility] [address] [place], [address] Triglycerides measurementOrd ered By: Millie Massey on 07-30-2024 Triglycerides measurement 82 mg/dL <199 [facility] Urea nitrogen [Mass/Vol]Orde red By: Millie Massey on 07-30-2024 Serum or plasma urea nitrogen measurement (mass/volume) 38 mg/dL High 4-19 [facility] Vitamin B12 ser/plasOrdered By: Millieblanche Massey on 07-30-2024 Cobalamin (Vitamin B12) [Mass/Vol] 452 pg/mL 180-914 [facility] Vitamin D, 25-hydroxyOrdered By: Millieblanche Massey on 07-30-2024 Vitamin D, 25-hydroxy 27.8 ng/mL Low 30-[address] [facility] White blood cell (WBC) count Ordered By: Millie Massey on 07-30-2024 WBC (Bld) [#/Vol] 10.8 10*3/uL 4.4-11.0 [facility] White blood cell (WBC) count 10.8 K/mm3 4.4-11.0 [facility] Anion gap [Moles/Vol]Ordered By: Remedios Kessler on 07-29-2024 Serum or plasma anion gap determination (moles/volume) 9 - [facility] BUN/creatinine ratioOrdered By: Remedios Kessler on 07-29-2024 Urea nitrogen/Creatinine [Mass ratio] 26.5 mg/mg High 10-20 [facility] BUN/creatinine ratio 26.5 RATIO High 10-20 [facility] Basic Metabolic Profile (BMP )on 07-29-2024 Anion gap [Moles/Vol] 9 mmol/L Normal - [facility] Comment on above: Performed By: #### L 501.2300, L500.2500, L501.5200, L100.0500 ####[facility] [address] [place], [address] BUN/CRE 26.5 RATIO High 10-20 [facility] Comment on above: Performed By: #### L 501.2300, L500.2500, L501.5200, L100.0500 ####[facility] [address] [place], [address] Calcium [Mass/Vol] 8.5 mg/dL Normal 7.6-11.0 [facility] Comment on above: Performed By: #### L 501.2300, L500.2500, L501.5200, L100.0500 ####[facility] [address] [place], [address] Chloride [Moles/Vol] 95 mmol/L Low 96-108 [facility] Comment on above: Performed By: #### L 501.2300, L500.2500, L501.5200, L100.0500 ####[facility] [address] [place], [address] CO2 [Moles/Vol] 25.0 mmol/L Normal 22.0-29.0 [facility] Comment on above: Performed By: #### L 501.2300, L500.2500, L501.5200, L100.0500 ####[facility] [address] [place], [address] Creatinine [Mass/Vol] 1.88 mg/dL High 0.70-1.[address] [facility] Comment on above: Performed By: #### L 501.2300, L500.2500, L501.5200, L100.0500 ####[facility] [address] [place], [address] ECRCL 19.59 ml/min Low 50-250 [facility] Comment on above: Performed By: #### L 501.2300, L500.2500, L501.5200, L100.0500 ####[facility] [address] [place], [address] GFR/1.73 sq M.predicted among non-blacks MDRD (S/P/Bld) [Vol rate/Area] 30 mL/min/{1.73_m2} Low >60 [facility] Comment on above: Result Comment: mL/m in/1.73m2 CKD-EPI Creatinine Equation (2020) Performed By: #### L 501.2300, L500.2500, L501.5200, L100.0500 ####[facility] [address] [place], [address] Glucose [Mass/Vol] 121 mg/dL High 70-99 [facility] Comment on above: Performed By: #### L 501.2300, L500.2500, L501.5200, L100.0500 ####[facility] [address] [place], [address] Potassium [Moles/Vol] 4.6 mmol/L Normal 3.3-5.[address] [facility] Comment on above: Performed By: #### L 501.2300, L500.2500, L501.5200, L100.0500 ####[facility] [address] [place], [address] Sodium [Moles/Vol] 129 mmol/L Low 133-145 [facility] Comment on above: Performed By: #### L 501.2300, L500.2500, L501.5200, L100.0500 ####[facility] [address] [place], [address] Urea nitrogen [Mass/Vol] 50 mg/dL High 4-19 [facility] Comment on above: Performed By: #### L 501.2300, L500.2500, L501.5200, L100.0500 ####[facility] [address] [place], [address] CBC-Complete Blood Cnt No Di ffon 07-29-2024 Erythrocyte distribution width (RBC) [Ratio] 17.0 % High 11.6-14.6 [facility] Comment on above: Performed By: #### L 501.2300, L500.2500, L501.5200, L100.0500 ####[facility] [address] [place], [address] Hematocrit (Bld) [Volume fraction] 28.1 % Low 37-47 [facility] Comment on above: Performed By: #### L 501.2300, L500.2500, L501.5200, L100.0500 ####[facility] [address] [place], [address] Hemoglobin (Bld) [Mass/Vol] 8.3 g/dL Low 12.0-15.0 [facility] Comment on above: Performed By: #### L 501.2300, L500.2500, L501.5200, L100.0500 ####[facility] [address] [place], [address] MCH (RBC) [Entitic mass] 25.7 pg Low 27.0-32.0 [facility] Comment on above: Performed By: #### L 501.2300, L500.2500, L501.5200, L100.0500 ####[facility] [address] [place], [address] MCHC (RBC) [Mass/Vol] 29.5 g/dL Low 32-[address] [facility] Comment on above: Performed By: #### L 501.2300, L500.2500, L501.5200, L100.0500 ####[facility] [address] [place], [address] MCV (RBC) [Entitic vol] 87.0 fL Normal 81-99 [facility] Comment on above: Performed By: #### L 501.2300, L500.2500, L501.5200, L100.0500 ####[facility] [address] [place], [address] Platelet mean volume (Bld) [Entitic vol] 9.3 fL Normal 6.2-12.0 [facility] Comment on above: Performed By: #### L 501.2300, L500.2500, L501.5200, L100.0500 ####[facility] [address] [place], [address] Platelets (Bld) [#/Vol] 222 10*3/uL Normal 150-450 [facility] Comment on above: Performed By: #### L 501.2300, L500.2500, L501.5200, L100.0500 ####[facility] [address] [place], [address] RBC (Bld) [#/Vol] 3.23 10*6/uL Low 4.2-5.4 [facility] Comment on above: Performed By: #### L 501.2300, L500.2500, L501.5200, L100.0500 ####[facility] [address] [place], [address] RDW SD 53.6 fl High 35.1-43.9 [facility] Comment on above: Performed By: #### L 501.2300, L500.2500, L501.5200, L100.0500 ####[facility] [address] [place], [address] WBC (Bld) [#/Vol] 13.8 10*3/uL High 4.4-11.0 [facility] Comment on above: Performed By: #### L 501.2300, L500.2500, L501.5200, L100.0500 ####[facility] [address] [place], [address] Calcium [Mass/Vol]Ordered By : Remedios Kessler on 07-29-2024 Serum or plasma calcium measurement (mass/volume) 8.5 mg/dL 7.6-11.0 [facility] Carbon dioxide measurementOr dered By: Remedios Kessler on 07-29-2024 CO2 [Moles/Vol] 25.0 mmol/L 22.0-29.0 [facility] Carbon dioxide measurement 25.0 mmol/L 22.0-29.0 [facility] Chloride measurementOrdered By: Remedios Kessler on 07-29-2024 Chloride [Moles/Vol] 95 mmol/L Low 96-108 [facility] Chloride measurement 95 mmol/L Low 96-108 [facility] Creatinine [Mass/Vol]Ordered By: Remedios Kessler on 07-29-2024 Serum creatinine measurement (mass/volume) 1.88 mg/dL High 0.70-1.20 [facility] Erythrocyte distribution wid th (RBC) [Ratio]Ordered By: Remedios Kessler on 07-29-2024 Erythrocyte distribution width ratio 17.0 % High 11.6-14.6 [facility] Erythrocyte distribution wid th ratioOrdered By: Remedios Kessler on 07-29-2024 Erythrocyte distribution width (RBC) [Ratio] 17.0 % High 11.6-14.6 [facility] Erythrocyte distribution wid th standard deviationOrdered By: Remedios Kessler on 07-29-2024 Erythrocyte distribution width (RBC) [Ratio] 53.6 fl High 35.1-43.9 [facility] Erythrocyte distribution width standard deviation 53.6 fl High 35.1-43.9 [facility] Estimation of creatinine austen aranceOrdered By: Remedios Kessler on 07-29-2024 Estimation of creatinine clearance 19.59 ml/min Low 50-250 [facility] GFR/1.73 sq M.predicted víctor g non-blacks MDRD (S/P/Bld) [Vol rate/Area]Ordered By: Remedios Kessler on 07-29-2024 Glomerular filtration rate (GFR) estimation/1.73 sq m using serum, plasma, or whole b 30 Low >60 [facility] Glomerular filtration rate ( GFR) estimation/1.73 sq m using serum, plasma, or whole bOrdered By: Remedios Kessler on 07-29-2024 GFR/1.73 sq M.predicted among non-blacks MDRD (S/P/Bld) [Vol rate/Area] 30 mL/min/{1.73_m2} Low >60 [facility] Glucose [Mass/Vol]Ordered By : Remedios Kessler on 07-29-2024 Serum glucose measurement (mass/volume) 121 mg/dL High 70-99 [facility] Hematocrit Auto (Bld) [Volum e fraction]Ordered By: Remedios Kessler on 07-29-2024 Hematocrit (Bld) [Volume fraction] 28.1 % Low 37-47 [facility] Automated blood hematocrit (percentage) 28.1 % Low 37-47 [facility] Hemoglobin measurementOrdere d By: Remedios Kessler on 07-29-2024 Hemoglobin (Bld) [Mass/Vol] 8.3 g/dL Low 12.0-15.0 [facility] Hemoglobin measurement 8.3 g/dL Low 12.0-15.0 [facility] MCV (RBC) [Entitic vol]Order ed By: Remedios Kessler on 07-29-2024 MCV (mean corpuscular volume) determination 87.0 fL 81-99 [facility] MCV (mean corpuscular volume ) determinationOrdered By: Remedios Kessler on 07-29-2024 MCV (RBC) [Entitic vol] 87.0 fL 81-99 [facility] Magnesiumon 07-29-2024 Magnesium [Mass/Vol] 1.8 mg/dL Normal 1.5-2.2 [facility] Comment on above: Performed By: #### L 501.2300, L500.2500, L501.5200, L100.0500 ####[facility] [address] [place], [address] Magnesium (Unsp spec) [Mass/ Vol]Ordered By: Remedios Kessler on 07-29-2024 Magnesium measurement (mass/volume) 1.8 mg/dL 1.5-2.2 [facility] Magnesium measurement (mass/ volume)Ordered By: Remedios Kessler on 07-29-2024 Magnesium (Unsp spec) [Mass/Vol] 1.8 mg/dL 1.5-2.2 [facility] Mean corpuscular hemoglobin (MCH) determinationOrdered By: Remedios Kessler on 07-29-2024 MCH (RBC) [Entitic mass] 25.7 pg Low 27.0-32.0 [facility] Mean corpuscular hemoglobin (MCH) determination 25.7 pg Low 27.0-32.0 [facility] Mean corpuscular hemoglobin concentration (MCHC) determinationOrdered By: Remedios Kessler on 07-29-2024 Mean corpuscular hemoglobin concentration (MCHC) determination 29.5 g/dL Low 32-36 [facility] Mean platelet volume determi nationOrdered By: Remedios Kessler on 07-29-2024 Mean platelet volume determination 9.3 fl 6.2-12.0 [facility] Phosphoruson 07-29-2024 Phosphate [Mass/Vol] 3.3 mg/dL Normal 2.7-4.5 [facility] Comment on above: Performed By: #### L 501.2300, L500.2500, L501.5200, L100.0500 ####[facility] [address] [place], [address] Platelet countOrdered By: Rip Kessler on 07-29-2024 Platelets (Bld) [#/Vol] 222 10*3/uL 150-450 [facility] Platelet count 222 K/mm3 150-450 [facility] Potassium [Moles/Vol]Ordered By: Remedios Kessler on 07-29-2024 Serum or plasma potassium measurement 4.6 mmol/L 3.3-5.1 [facility] RBC Auto (Bld) [#/Vol]Ordere d By: Remedios Kessler on 07-29-2024 RBC (Bld) [#/Vol] 3.23 10*6/uL Low 4.2-5.4 [facility] Automated blood erythrocyte count 3.23 M/mm3 Low 4.2-5.4 [facility] Serum creatinine measurement (mass/volume)Ordered By: Remedios Kessler on 07-29-2024 Creatinine [Mass/Vol] 1.88 mg/dL High 0.70-1.[address] [facility] Serum glucose measurement (m ass/volume)Ordered By: Remedios Kessler on 07-29-2024 Glucose [Mass/Vol] 121 mg/dL High 70-99 [facility] Serum or plasma anion gap de termination (moles/volume)Ordered By: Remedios Kessler on 07-29-2024 Anion gap [Moles/Vol] 9 mmol/L 5-[address] [facility] Serum or plasma calcium megan urement (mass/volume)Ordered By: Remedios Kessler on 07-29-2024 Calcium [Mass/Vol] 8.5 mg/dL 7.6-11.0 [facility] Serum or plasma potassium me asurementOrdered By: Remedios Kessler on 07-29-2024 Potassium [Moles/Vol] 4.6 mmol/L 3.3-5.[address] [facility] Serum or plasma sodium measu rement (moles/volume)Ordered By: Remedios Kessler on 07-29-2024 Sodium [Moles/Vol] 129 mmol/L Low 133-145 [facility] Serum or plasma urea nitroge n measurement (mass/volume)Ordered By: Remedios Kessler on 07-29-2024 Urea nitrogen [Mass/Vol] 50 mg/dL High 4-19 [facility] Serum phosphorus measurement Ordered By: Remedios Kessler on 07-29-2024 Serum phosphorus measurement 3.3 mg/dL 2.7-4.5 [facility] Sodium [Moles/Vol]Ordered By : Remedios Kessler on 07-29-2024 Serum or plasma sodium measurement (moles/volume) 129 mmol/L Low 133-145 [facility] Urea nitrogen [Mass/Vol]Orde red By: Remedios Kessler on 07-29-2024 Serum or plasma urea nitrogen measurement (mass/volume) 50 mg/dL High 4-19 [facility] White blood cell (WBC) count Ordered By: Remedios Kessler on 07-29-2024 WBC (Bld) [#/Vol] 13.8 10*3/uL High 4.4-11.0 [facility] White blood cell (WBC) count 13.8 K/mm3 High 4.4-11.0 [facility] Absolute lymphocyte countOrd ered By: Remedios Kessler on 07-28-2024 Lymphocytes Auto (Unsp spec) [#/Vol] 0.41 10*3/uL Low 0.83-4.51 [facility] Absolute neutrophil countOrd ered By: Remedios Kessler on 07-28-2024 Absolute neutrophil count 14.2 X10^3/uL High 2.0-7.7 [facility] Automated lymphocyte count a s percentage of total leukocytesOrdered By: Remedios Kessler on 07-28-2024 Lymphocytes/100 WBC Auto (Unsp spec) 2.6 % Low 19-41 [facility] Basic Metabolic Profile (BMP )on 07-28-2024 Anion gap [Moles/Vol] 9 mmol/L Normal 5-[address] [facility] Comment on above: Performed By: #### L 501.5200, L501.2300, L100.0100, L500.2500 ####[facility] [address] [place], [address] BUN/CRE 22.8 RATIO High 10-20 [facility] Comment on above: Performed By: #### L 501.5200, L501.2300, L100.0100, L500.2500 ####[facility] [address] [place], [address] Calcium [Mass/Vol] 8.8 mg/dL Normal 7.6-11.0 [facility] Comment on above: Performed By: #### L 501.5200, L501.2300, L100.0100, L500.2500 ####[facility] [address] [place], [address] Chloride [Moles/Vol] 98 mmol/L Normal 96-108 [facility] Comment on above: Performed By: #### L 501.5200, L501.2300, L100.0100, L500.2500 ####[facility] [address] [place], [address] CO2 [Moles/Vol] 22.8 mmol/L Normal 22.0-29.0 [facility] Comment on above: Performed By: #### L 501.5200, L501.2300, L100.0100, L500.2500 ####[facility] [address] [place], [address] Creatinine [Mass/Vol] 1.74 mg/dL High 0.70-1.[address] [facility] Comment on above: Performed By: #### L 501.5200, L501.2300, L100.0100, L500.2500 ####[facility] [address] [place], [address] ECRCL 21.17 ml/min Low 50-250 [facility] Comment on above: Performed By: #### L 501.5200, L501.2300, L100.0100, L500.2500 ####[facility] [address] [place], [address] GFR/1.73 sq M.predicted among non-blacks MDRD (S/P/Bld) [Vol rate/Area] 33 mL/min/{1.73_m2} Low >60 [facility] Comment on above: Result Comment: mL/m in/1.73m2 CKD-EPI Creatinine Equation (2020) Performed By: #### L 501.5200, L501.2300, L100.0100, L500.2500 ####[facility] [address] [place], [address] Glucose [Mass/Vol] 69 mg/dL Low 70-99 [facility] Comment on above: Performed By: #### L 501.5200, L501.2300, L100.0100, L500.2500 ####[facility] [address] [place], [address] Potassium [Moles/Vol] 4.4 mmol/L Normal 3.3-5.[address] [facility] Comment on above: Result Comment: Hemo lysis present, Results??could be affected.?? Performed By: #### L 501.5200, L501.2300, L100.0100, L500.2500 ####[facility] [address] [place], [address] Sodium [Moles/Vol] 130 mmol/L Low 133-145 [facility] Comment on above: Performed By: #### L 501.5200, L501.2300, L100.0100, L500.2500 ####[facility] [address] [place], [address] Urea nitrogen [Mass/Vol] 40 mg/dL High 4-19 [facility] Comment on above: Performed By: #### L 501.5200, L501.2300, L100.0100, L500.2500 ####[facility] [address] [place], [address] Basophil percentageOrdered B y: Remedios Kessler on 07-28-2024 Basophils/100 WBC (Bld) 0.2 % 0-1 [facility] Basophil percentage 0.2 % 0-1 [facility] CBC W/Diff, Automatedon 03- Absolute Lymph 0.41 X10 3/uL Low 0.83-4.51 [facility] Comment on above: Performed By: #### L 501.5200, L501.2300, L100.0100, L500.2500 ####[facility] [address] [place], [address] Absolute Neut 14.2 X10 3/uL High 2.0-7.7 [facility] Comment on above: Performed By: #### L 501.5200, L501.2300, L100.0100, L500.2500 ####[facility] [address] [place], [address] Basophils/100 WBC (Bld) 0.2 % Normal 0-1 [facility] Comment on above: Performed By: #### L 501.5200, L501.2300, L100.0100, L500.2500 ####[facility] [address] [place], [address] Eosinophils/100 WBC (Bld) 0.4 % Normal 0-5 [facility] Comment on above: Performed By: #### L 501.5200, L501.2300, L100.0100, L500.2500 ####[facility] [address] [place], [address] Erythrocyte distribution width (RBC) [Ratio] 17.2 % High 11.6-14.6 [facility] Comment on above: Performed By: #### L 501.5200, L501.2300, L100.0100, L500.2500 ####[facility] [address] [place], [address] Hematocrit (Bld) [Volume fraction] 32.2 % Low 37-47 [facility] Comment on above: Performed By: #### L 501.5200, L501.2300, L100.0100, L500.2500 ####[facility] [address] [place], [address] Hemoglobin (Bld) [Mass/Vol] 9.6 g/dL Low 12.0-15.0 [facility] Comment on above: Performed By: #### L 501.5200, L501.2300, L100.0100, L500.2500 ####[facility] [address] [place], [address] IG% 1.700 High 0.0-0.9 [facility] Comment on above: Result Comment: IG% - Immature Granulocytes (promyelocytes, myelocytes andmetamyelocytes) > 1% indicates that a LEFT SHIFT is Present. Performed By: #### L 501.5200, L501.2300, L100.0100, L500.2500 ####[facility] [address] [place], [address] Lymphocytes/100 WBC (Bld) 2.6 % Low 19-41 [facility] Comment on above: Performed By: #### L 501.5200, L501.2300, L100.0100, L500.2500 ####[facility] [address] [place], [address] MCH (RBC) [Entitic mass] 25.7 pg Low 27.0-32.0 [facility] Comment on above: Performed By: #### L 501.5200, L501.2300, L100.0100, L500.2500 ####[facility] [address] [place], [address] MCHC (RBC) [Mass/Vol] 29.8 g/dL Low 32-[address] [facility] Comment on above: Performed By: #### L 501.5200, L501.2300, L100.0100, L500.2500 ####[facility] [address] [place], [address] MCV (RBC) [Entitic vol] 86.3 fL Normal 81-99 [facility] Comment on above: Performed By: #### L 501.5200, L501.2300, L100.0100, L500.2500 ####[facility] [address] [place], [address] Monocytes/100 WBC (Bld) 4.2 % Normal 0-10 [facility] Comment on above: Performed By: #### L 501.5200, L501.2300, L100.0100, L500.2500 ####[facility] [address] [place], [address] Neutrophils/100 WBC (Bld) 90.9 % High 47-70 [facility] Comment on above: Performed By: #### L 501.5200, L501.2300, L100.0100, L500.2500 ####[facility] [address] [place], [address] Nucleated RBC (Bld) [#/Vol] 0 10*3/uL Normal 0-5 [facility] Comment on above: Performed By: #### L 501.5200, L501.2300, L100.0100, L500.2500 ####[facility] [address] [place], [address] Platelet mean volume (Bld) [Entitic vol] 8.3 fL Normal 6.2-12.0 [facility] Comment on above: Performed By: #### L 501.5200, L501.2300, L100.0100, L500.2500 ####[facility] [address] [place], [address] Platelets (Bld) [#/Vol] 217 10*3/uL Normal 150-450 [facility] Comment on above: Performed By: #### L 501.5200, L501.2300, L100.0100, L500.2500 ####[facility] [address] [place], [address] RBC (Bld) [#/Vol] 3.73 10*6/uL Low 4.2-5.4 [facility] Comment on above: Performed By: #### L 501.5200, L501.2300, L100.0100, L500.2500 ####[facility] [address] [place], [address] RDW SD 53.4 fl High 35.1-43.9 [facility] Comment on above: Performed By: #### L 501.5200, L501.2300, L100.0100, L500.2500 ####[facility] [address] [place], [address] WBC (Bld) [#/Vol] 15.6 10*3/uL High 4.4-11.0 [facility] Comment on above: Performed By: #### L 501.5200, L501.2300, L100.0100, L500.2500 ####[facility] [address] [place], [place], [address] Eosinophil percentageOrdered By: Remedios Kessler on 07-28-2024 Eosinophils/100 WBC (Bld) 0.4 % 0-5 [facility] Eosinophil percentage 0.4 % 0-[address] [facility] Immature granulocytes/100 WB C Auto (Bld)Ordered By: Remedios Kessler on 07-28-2024 Immature granulocytes/100 WBC (Bld) 1.700 % High 0.0-0.9 [facility] Automated immature granulocyte percentage 1.700 % High 0.0-0.9 [facility] Lymphocytes Auto (Unsp spec) [#/Vol]Ordered By: Remedios Kessler on 07-28-2024 Absolute lymphocyte count 0.41 X10^3/uL Low 0.83-4.51 [facility] Lymphocytes/100 WBC Auto (Un sp spec)Ordered By: Remedios Kesslre on 07-28-2024 Automated lymphocyte count as percentage of total leukocytes 2.6 % Low 19-41 [facility] Magnesiumon 07-28-2024 Magnesium [Mass/Vol] 2.0 mg/dL Normal 1.5-2.2 [facility] Comment on above: Performed By: #### L 501.5200, L501.2300, L100.0100, L500.2500 ####[facility] [address] [place], [place], [id number] Monocyte percentageOrdered B y: Remedios Kessler on 07-28-2024 Monocytes/100 WBC (Bld) 4.2 % 0-10 [facility] Monocyte percentage 4.2 % 0-10 [facility] Neutrophil percentageOrdered By: Remedios Kessler on 07-28-2024 Neutrophils/100 WBC (Bld) 90.9 % High 47-70 [facility] Neutrophil percentage 90.9 % High 47-[address] [facility] Nucleated red blood cell per centageOrdered By: Remedios Kessler on 07-28-2024 Nucleated red blood cell percentage 0 % 0-5 [facility] Phosphoruson 07-28-2024 Phosphate [Mass/Vol] 3.4 mg/dL Normal 2.7-4.5 [facility] Comment on above: Performed By: #### L 501.5200, L501.2300, L100.0100, L500.2500 ####[facility] [address] [place], [address] Basic Metabolic Profile (BMP )on 07-27-2024 Anion gap [Moles/Vol] 9 mmol/L Normal 5-[address] [facility] Comment on above: Performed By: #### L 500.2500, L501.5200, L100.0100, L501.2300 ####[facility] [address] [place], [address] BUN/CRE 21.0 RATIO High 10-20 [facility] Comment on above: Performed By: #### L 500.2500, L501.5200, L100.0100, L501.2300 ####[facility] [address] [place], [address] Calcium [Mass/Vol] 8.9 mg/dL Normal 7.6-11.0 [facility] Comment on above: Performed By: #### L 500.2500, L501.5200, L100.0100, L501.2300 ####[facility] [address] [place], [address] Chloride [Moles/Vol] 98 mmol/L Normal 96-108 [facility] Comment on above: Performed By: #### L 500.2500, L501.5200, L100.0100, L501.2300 ####[facility] [address] [place], [address] CO2 [Moles/Vol] 23.8 mmol/L Normal 22.0-29.0 [facility] Comment on above: Performed By: #### L 500.2500, L501.5200, L100.0100, L501.2300 ####[facility] [address] [place], [address] Creatinine [Mass/Vol] 1.40 mg/dL High 0.70-1.[address] [facility] Comment on above: Performed By: #### L 500.2500, L501.5200, L100.0100, L501.2300 ####[facility] [address] [place], [address] ECRCL 26.31 ml/min Normal [facility] Comment on above: Performed By: #### L 500.2500, L501.5200, L100.0100, L501.2300 ####[facility] [address] [place], [address] GFR/1.73 sq M.predicted among non-blacks MDRD (S/P/Bld) [Vol rate/Area] 43 mL/min/{1.73_m2} Low >60 [facility] Comment on above: Result Comment: mL/m in/1.73m2 CKD-EPI Creatinine Equation (2020) Performed By: #### L 500.2500, L501.5200, L100.0100, L501.2300 ####[facility] [address] [place], [address] Glucose [Mass/Vol] 89 mg/dL Normal 70-99 [facility] Comment on above: Performed By: #### L 500.2500, L501.5200, L100.0100, L501.2300 ####[facility] [address], [address] Potassium [Moles/Vol] 3.8 mmol/L Normal 3.3-5.[address] [facility] Comment on above: Performed By: #### L 500.2500, L501.5200, L100.0100, L501.2300 ####[facility] [address] [place], [address] Sodium [Moles/Vol] 130 mmol/L Low 133-145 [facility] Comment on above: Performed By: #### L 500.2500, L501.5200, L100.0100, L501.2300 ####[facility] [address] [place], [address] Urea nitrogen [Mass/Vol] 29 mg/dL High 4-19 [facility] Comment on above: Performed By: #### L 500.2500, L501.5200, L100.0100, L501.2300 ####[facility] [address] [place], [address] CBC W/Diff, Automatedon 03-0 1-2024 Absolute Lymph 0.63 X10 3/uL Low 0.83-4.51 [facility] Comment on above: Performed By: #### L 500.2500, L501.5200, L100.0100, L501.2300 ####[facility] [address] [place], [address] Absolute Neut 18.1 X10 3/uL High 2.0-7.7 [facility] Comment on above: Performed By: #### L 500.2500, L501.5200, L100.0100, L501.2300 ####[facility] [address] [place], [address] Basophils/100 WBC (Bld) 0.2 % Normal 0-1 [facility] Comment on above: Performed By: #### L 500.2500, L501.5200, L100.0100, L501.2300 ####[facility] [address] [place], [address] Eosinophils/100 WBC (Bld) 0.3 % Normal 0-5 [facility] Comment on above: Performed By: #### L 500.2500, L501.5200, L100.0100, L501.2300 ####[facility] [address] [place], [address] Erythrocyte distribution width (RBC) [Ratio] 17.2 % High 11.6-14.6 [facility] Comment on above: Performed By: #### L 500.2500, L501.5200, L100.0100, L501.2300 ####[facility] [address] [place], [address] Hematocrit (Bld) [Volume fraction] 30.9 % Low 37-47 [facility] Comment on above: Performed By: #### L 500.2500, L501.5200, L100.0100, L501.2300 ####[facility] [address] [place], [address] Hemoglobin (Bld) [Mass/Vol] 9.2 g/dL Low 12.0-15.0 [facility] Comment on above: Performed By: #### L 500.2500, L501.5200, L100.0100, L501.2300 ####[facility] [address] [place], [address] IG% 1.400 High 0.0-0.9 [facility] Comment on above: Result Comment: IG% - Immature Granulocytes (promyelocytes, myelocytes andmetamyelocytes) > 1% indicates that a LEFT SHIFT is Present. Performed By: #### L 500.2500, L501.5200, L100.0100, L501.2300 ####[facility] [address] [place], [address] Lymphocytes/100 WBC (Bld) 3.2 % Low 19-41 [facility] Comment on above: Performed By: #### L 500.2500, L501.5200, L100.0100, L501.2300 ####[facility] [address] [place], [address] MCH (RBC) [Entitic mass] 26.1 pg Low 27.0-32.0 [facility] Comment on above: Performed By: #### L 500.2500, L501.5200, L100.0100, L501.2300 ####[facility] [address] [place], [address] MCHC (RBC) [Mass/Vol] 29.8 g/dL Low 32-[address] [facility] Comment on above: Performed By: #### L 500.2500, L501.5200, L100.0100, L501.2300 ####[facility] [address] [place], [address] MCV (RBC) [Entitic vol] 87.5 fL Normal 81-99 [facility] Comment on above: Performed By: #### L 500.2500, L501.5200, L100.0100, L501.2300 ####[facility] [address] [place], [address] Monocytes/100 WBC (Bld) 4.5 % Normal 0-10 [facility] Comment on above: Performed By: #### L 500.2500, L501.5200, L100.0100, L501.2300 ####[facility] [address] [place], [address] Neutrophils/100 WBC (Bld) 90.4 % High 47-70 [facility] Comment on above: Performed By: #### L 500.2500, L501.5200, L100.0100, L501.2300 ####[facility] [address] [place], [address] Nucleated RBC (Bld) [#/Vol] 0 10*3/uL Normal 0-5 [facility] Comment on above: Performed By: #### L 500.2500, L501.5200, L100.0100, L501.2300 ####[facility] [address] [place], [address] Platelet mean volume (Bld) [Entitic vol] 8.8 fL Normal 6.2-12.0 [facility] Comment on above: Performed By: #### L 500.2500, L501.5200, L100.0100, L501.2300 ####[facility] [address] [place], [address] Platelets (Bld) [#/Vol] 265 10*3/uL Normal 150-450 [facility] Comment on above: Performed By: #### L 500.2500, L501.5200, L100.0100, L501.2300 ####[facility] [address] [place], [address] RBC (Bld) [#/Vol] 3.53 10*6/uL Low 4.2-5.4 [facility] Comment on above: Performed By: #### L 500.2500, L501.5200, L100.0100, L501.2300 ####[facility] [address] [place], [address] RDW SD 53.9 fl High 35.1-43.9 [facility] Comment on above: Performed By: #### L 500.2500, L501.5200, L100.0100, L501.2300 ####[facility] [address] [place], [address] WBC (Bld) [#/Vol] 20.0 10*3/uL High 4.4-11.0 [facility] Comment on above: Performed By: #### L 500.2500, L501.5200, L100.0100, L501.2300 ####[facility] [address] [place], [address] Magnesiumon 07-27-2024 Magnesium [Mass/Vol] 1.9 mg/dL Normal 1.5-2.2 [facility] Comment on above: Performed By: #### L 500.2500, L501.5200, L100.0100, L501.2300 ####[facility] [address] [place], [address] Phosphoruson 07-27-2024 Phosphate [Mass/Vol] 3.6 mg/dL Normal 2.7-4.5 [facility] Comment on above: Performed By: #### L 500.2500, L501.5200, L100.0100, L501.2300 ####[facility] [address] [place], [address] Basic Metabolic Profile (BMP )on 07-26-2024 Anion gap [Moles/Vol] 10 mmol/L Normal 5-[address] [facility] Comment on above: Performed By: #### L 501.2300, L500.2500, L501.5200 ####[facility] [address] [place], [address] BUN/CRE 19.9 RATIO Normal 10-20 [facility] Comment on above: Performed By: #### L 501.2300, L500.2500, L501.5200 ####[facility] [address] [place], [address] Calcium [Mass/Vol] 8.6 mg/dL Normal 7.6-11.0 [facility] Comment on above: Performed By: #### L 501.2300, L500.2500, L501.5200 ####[facility] [address] [place], [address] Chloride [Moles/Vol] 98 mmol/L Normal 96-108 [facility] Comment on above: Performed By: #### L 501.2300, L500.2500, L501.5200 ####[facility] [address] [place], [address] CO2 [Moles/Vol] 22.9 mmol/L Normal 22.0-29.0 [facility] Comment on above: Performed By: #### L 501.2300, L500.2500, L501.5200 ####[facility] [address] [place], [address] Creatinine [Mass/Vol] 1.60 mg/dL High 0.70-1.[address] [facility] Comment on above: Performed By: #### L 501.2300, L500.2500, L501.5200 ####[facility] [address] [place], [address] ECRCL 23.88 ml/min Normal [facility] Comment on above: Performed By: #### L 501.2300, L500.2500, L501.5200 ####[facility] [address] [place], [address] GFR/1.73 sq M.predicted among non-blacks MDRD (S/P/Bld) [Vol rate/Area] 36 mL/min/{1.73_m2} Low >60 [facility] Comment on above: Result Comment: mL/m in/1.73m2 CKD-EPI Creatinine Equation (2020) Performed By: #### L 501.2300, L500.2500, L501.5200 ####[facility] [address] [place], [address] Glucose [Mass/Vol] 66 mg/dL Low 70-99 [facility] Comment on above: Performed By: #### L 501.2300, L500.2500, L501.5200 ####[facility] [address] [place], [address] Potassium [Moles/Vol] 4.1 mmol/L Normal 3.3-5.[address] [facility] Comment on above: Result Comment: Hemo lysis present, Results??could be affected.?? Performed By: #### L 501.2300, L500.2500, L501.5200 ####[facility] [address] [place], [address] Sodium [Moles/Vol] 131 mmol/L Low 133-145 [facility] Comment on above: Performed By: #### L 501.2300, L500.2500, L501.5200 ####[facility] [address] [place], [address] Urea nitrogen [Mass/Vol] 32 mg/dL High 4-19 [facility] Comment on above: Performed By: #### L 501.2300, L500.2500, L501.5200 ####[facility] [address] [place], [address] Magnesiumon 07-26-2024 Magnesium [Mass/Vol] 1.9 mg/dL Normal 1.5-2.2 [facility] Comment on above: Performed By: #### L 501.2300, L500.2500, L501.5200 ####[facility] [address] [place], [address] Phosphoruson 07-26-2024 Phosphate [Mass/Vol] 3.9 mg/dL Normal 2.7-4.5 [facility] Comment on above: Performed By: #### L 501.2300, L500.2500, L501.5200 ####[facility] [address] [place], [address] Wound Cultureon 07-26-2024 WC left lower abdomen No growth aerobically. Normal [facility] Comment on above: Performed By: #### M 100.2000, M100.3000, L8200.1075 ####[facility] [address] [place], [address] Basic Metabolic Profile (BMP )on 07-25-2024 Anion gap [Moles/Vol] 11 mmol/L Normal 5-[address] [facility] Comment on above: Performed By: #### L 501.5200, L100.0500, L501.2300, L500.2500 ####[facility] [address] [place], [address] BUN/CRE 20.2 RATIO High 10-20 [facility] Comment on above: Performed By: #### L 501.5200, L100.0500, L501.2300, L500.2500 ####[facility] [address] [place], [address] Calcium [Mass/Vol] 8.4 mg/dL Normal 7.6-11.0 [facility] Comment on above: Performed By: #### L 501.5200, L100.0500, L501.2300, L500.2500 ####[facility] [address], [address] Chloride [Moles/Vol] 101 mmol/L Normal 96-108 [facility] Comment on above: Performed By: #### L 501.5200, L100.0500, L501.2300, L500.2500 ####[facility] [address] [place], [address] CO2 [Moles/Vol] 23.9 mmol/L Normal 22.0-29.0 [facility] Comment on above: Performed By: #### L 501.5200, L100.0500, L501.2300, L500.2500 ####[facility] [address] [place], [address] Creatinine [Mass/Vol] 2.1 mg/dL High 0.6-1.[address] [facility] Comment on above: Performed By: #### L 501.5200, L100.0500, L501.2300, L500.2500 ####[facility] [address] [place], [address] ECRCL 19.07 ml/min Normal [facility] Comment on above: Performed By: #### L 501.5200, L100.0500, L501.2300, L500.2500 ####[facility] [address] [place], [address] GFR/1.73 sq M.predicted among non-blacks MDRD (S/P/Bld) [Vol rate/Area] 26 mL/min/{1.73_m2} Low >60 [facility] Comment on above: Result Comment: mL/m in/1.73m2 CKD-EPI Creatinine Equation (2020) Performed By: #### L 501.5200, L100.0500, L501.2300, L500.2500 ####[facility] [address] [place], [address] Glucose [Mass/Vol] 101 mg/dL High 70-99 [facility] Comment on above: Performed By: #### L 501.5200, L100.0500, L501.2300, L500.2500 ####[facility] [address] [place], [address] Potassium [Moles/Vol] 4.1 mmol/L Normal 3.3-5.[address] [facility] Comment on above: Performed By: #### L 501.5200, L100.0500, L501.2300, L500.2500 ####[facility] [address] [place], [address] Sodium [Moles/Vol] 136 mmol/L Normal 133-145 [facility] Comment on above: Performed By: #### L 501.5200, L100.0500, L501.2300, L500.2500 ####[facility] [address] [place], [address] Urea nitrogen [Mass/Vol] 43 mg/dL High 4-19 [facility] Comment on above: Performed By: #### L 501.5200, L100.0500, L501.2300, L500.2500 ####[facility] [address] [place], [address] CBC-Complete Blood Cnt No Di ffon 07-25-2024 Erythrocyte distribution width (RBC) [Ratio] 17.2 % High 11.6-14.6 [facility] Comment on above: Performed By: #### L 501.5200, L100.0500, L501.2300, L500.2500 ####[facility] [address] [place], [address] Hematocrit (Bld) [Volume fraction] 27.3 % Low 37-47 [facility] Comment on above: Performed By: #### L 501.5200, L100.0500, L501.2300, L500.2500 ####[facility] [address] [place], [address] Hemoglobin (Bld) [Mass/Vol] 8.2 g/dL Low 12.0-15.0 [facility] Comment on above: Performed By: #### L 501.5200, L100.0500, L501.2300, L500.2500 ####[facility] [address] [place], [address] MCH (RBC) [Entitic mass] 26.5 pg Low 27.0-32.0 [facility] Comment on above: Performed By: #### L 501.5200, L100.0500, L501.2300, L500.2500 ####[facility] [address] [place], [address] MCHC (RBC) [Mass/Vol] 30.0 g/dL Low 32-[address] [facility] Comment on above: Performed By: #### L 501.5200, L100.0500, L501.2300, L500.2500 ####[facility] [address] [place], [address] MCV (RBC) [Entitic vol] 88.1 fL Normal 81-99 [facility] Comment on above: Performed By: #### L 501.5200, L100.0500, L501.2300, L500.2500 ####[facility] [address] [place], [address] Platelet mean volume (Bld) [Entitic vol] 8.8 fL Normal 6.2-12.0 [facility] Comment on above: Performed By: #### L 501.5200, L100.0500, L501.2300, L500.2500 ####[facility] [address] [place], [address] Platelets (Bld) [#/Vol] 317 10*3/uL Normal 150-450 [facility] Comment on above: Performed By: #### L 501.5200, L100.0500, L501.2300, L500.2500 ####[facility] [address] [place], [address] RBC (Bld) [#/Vol] 3.10 10*6/uL Low 4.2-5.4 [facility] Comment on above: Performed By: #### L 501.5200, L100.0500, L501.2300, L500.2500 ####[facility] [address] [place], [address] RDW SD 55.3 fl High 35.1-43.9 [facility] Comment on above: Performed By: #### L 501.5200, L100.0500, L501.2300, L500.2500 ####[facility] [address] [place], [address] WBC (Bld) [#/Vol] 10.8 10*3/uL Normal 4.4-11.0 [facility] Comment on above: Performed By: #### L 501.5200, L100.0500, L501.2300, L500.2500 ####[facility] [address] [place], [address] Gram Stainon 07-25-2024 GS left lower abdomen Gram Stain No organisms seen No cells seen Normal [facility] Comment on above: Performed By: #### M 100.1999, M100.3000, L8200.1075 ####[facility] [address] [place], [address] Gram stainOrdered By: Panda Kessler on 07-25-2024 Microscopic observation Gram stain Nom (Unsp spec) [facility] MRSA Wound DNA by PCRon 06-30 MRSA DNA ASSAY Negative Normal Negative [facility] Comment on above: Order Comment: left lower abdomen Performed By: #### M 100.1999, M100.3000, L8200.1075 ####[facility] [address] [place], [address] SA DNA ASSAY Negative Normal Negative [facility] Comment on above: Order Comment: left lower abdomen Performed By: #### M 100.1999, M100.3000, L8200.1075 ####[facility] [address] [place], [address] MRSA detection PCROrdered By : Remedios Kessler on 07-25-2024 MRSA detection PCR Negative Negative [facility] Magnesiumon 07-25-2024 Magnesium [Mass/Vol] 1.9 mg/dL Normal 1.5-2.2 [facility] Comment on above: Performed By: #### L 501.5200, L100.0500, L501.2300, L500.2500 ####[facility] [address] [place], [address] Phosphoruson 07-25-2024 Phosphate [Mass/Vol] 4.9 mg/dL High 2.7-4.5 [facility] Comment on above: Performed By: #### L 501.5200, L100.0500, L501.2300, L500.2500 ####[facility] [address] [place], [address] Routine wound cultureOrdered By: Remedios Kessler on 07-25-2024 Routine wound culture No growth aerobically. [facility] Staphylococcus aureus DNA de tection by probe and target amplification methodOrdered By: Remedios Kessler on 07-25-2024 S. aureus DNA MOISES+probe Ql (Unsp spec) Negative Negative [facility] ALP [Catalytic activity/Vol] Ordered By: Judd Galvin on 07-24-2024 Serum or plasma alkaline phosphatase measurement 45 U/L 35-104 [facility] ALT [Catalytic activity/Vol] Ordered By: Juddangelo Galvin on 07-24-2024 Serum or plasma alanine aminotransferase (ALT) measurement 9 U/L <35 [facility] Albumin [Mass/Vol]Ordered By : Juddangelo Galvin on 07-24-2024 Serum or plasma albumin measurement (mass/volume) 2.4 g/dL Low 3.4-4.8 [facility] Albumin/Globulin [Mass ratio ]Ordered By: Juddangelo Galvin on 07-24-2024 Serum or plasma albumin/globulin mass ratio 0.7 RATIO Low 0.9-2.4 [facility] Bilirubin, totalOrdered By: Judd Galvin on 07-24-2024 Bilirubin [Mass/Vol] 0.32 mg/dL 0.00-1.30 [facility] Bilirubin, total 0.32 mg/dL 0.00-1.30 [facility] CBC W/Diff, Automatedon 06-30 Absolute Lymph 0.57 X10 3/uL Low 0.83-4.51 [facility] Comment on above: Performed By: #### L 500.4050, L100.0100 ####[facility] [address] [place], [address] Absolute Neut 11.6 X10 3/uL High 2.0-7.7 [facility] Comment on above: Performed By: #### L 500.4050, L100.0100 ####[facility] [address] [place], [address] Basophils/100 WBC (Bld) 0.3 % Normal 0-1 [facility] Comment on above: Performed By: #### L 500.4050, L100.0100 ####[facility] [address] [place], [address] Eosinophils/100 WBC (Bld) 0.4 % Normal 0-5 [facility] Comment on above: Performed By: #### L 500.4050, L100.0100 ####[facility] [address] [place], [address] Erythrocyte distribution width (RBC) [Ratio] 17.2 % High 11.6-14.6 [facility] Comment on above: Performed By: #### L 500.4050, L100.0100 ####[facility] [address] [place], [address] Hematocrit (Bld) [Volume fraction] 29.6 % Low 37-47 [facility] Comment on above: Performed By: #### L 500.4050, L100.0100 ####[facility] [address] [place], [address] Hemoglobin (Bld) [Mass/Vol] 8.8 g/dL Low 12.0-15.0 [facility] Comment on above: Performed By: #### L 500.4050, L100.0100 ####[facility] [address] [place], [address] IG% 1.700 High 0.0-0.9 [facility] Comment on above: Result Comment: IG% - Immature Granulocytes (promyelocytes, myelocytes andmetamyelocytes) > 1% indicates that a LEFT SHIFT is Present. Performed By: #### L 500.4050, L100.0100 ####[facility] [address] [place], [address] Lymphocytes/100 WBC (Bld) 4.3 % Low 19-41 [facility] Comment on above: Performed By: #### L 500.4050, L100.0100 ####[facility] [address] [place], [address] MCH (RBC) [Entitic mass] 26.5 pg Low 27.0-32.0 [facility] Comment on above: Performed By: #### L 500.4050, L100.0100 ####[facility] [address] [place], [address] MCHC (RBC) [Mass/Vol] 29.7 g/dL Low 32-[address] [facility] Comment on above: Performed By: #### L 500.4050, L100.0100 ####[facility] [address] [place], [address] MCV (RBC) [Entitic vol] 89.2 fL Normal 81-99 [facility] Comment on above: Performed By: #### L 500.4050, L100.0100 ####[facility] [address] [place], [address] Monocytes/100 WBC (Bld) 6.6 % Normal 0-10 [facility] Comment on above: Performed By: #### L 500.4050, L100.0100 ####[facility] [address] [place], [address] Neutrophils/100 WBC (Bld) 86.7 % High 47-70 [facility] Comment on above: Performed By: #### L 500.4050, L100.0100 ####[facility] [address] [place], [address] Nucleated RBC (Bld) [#/Vol] 0.1 10*3/uL Normal 0-5 [facility] Comment on above: Performed By: #### L 500.4050, L100.0100 ####[facility] [address] [place], [address] Platelet mean volume (Bld) [Entitic vol] 8.4 fL Normal 6.2-12.0 [facility] Comment on above: Performed By: #### L 500.4050, L100.0100 ####[facility] [address] [place], [address] Platelets (Bld) [#/Vol] 303 10*3/uL Normal 150-450 [facility] Comment on above: Performed By: #### L 500.4050, L100.0100 ####[facility] [address] [place], [address] RBC (Bld) [#/Vol] 3.32 10*6/uL Low 4.2-5.4 [facility] Comment on above: Performed By: #### L 500.4050, L100.0100 ####[facility] [address] [place], [address] RDW SD 55.6 fl High 35.1-43.9 [facility] Comment on above: Performed By: #### L 500.4050, L100.0100 ####[facility] [address] [place], [address] WBC (Bld) [#/Vol] 13.4 10*3/uL High 4.4-11.0 [facility] Comment on above: Performed By: #### L 500.4050, L100.0100 ####[facility] [address] [place], [address] Comprehensive Metabolic Prof ilon 07-24-2024 Albumin [Mass/Vol] 2.4 g/dL Low 3.4-4.8 [facility] Comment on above: Performed By: #### L 500.4050, L100.0100 ####[facility] [address] [place], [address] Albumin/Globulin [Mass ratio] 0.7 {ratio} Low 0.9-2.4 [facility] Comment on above: Performed By: #### L 500.4050, L100.0100 ####[facility] [address] [place], [address] ALK PHOS 45 U/L Normal 35-104 [facility] Comment on above: Performed By: #### L 500.4050, L100.0100 ####[facility] [address] [place], [address] ALT [Catalytic activity/Vol] 9 U/L Normal <=34 [facility] Comment on above: Performed By: #### L 500.4050, L100.0100 ####[facility] [address] [place], [address] Anion gap [Moles/Vol] 10 mmol/L Normal 5-[address] [facility] Comment on above: Performed By: #### L 500.4050, L100.0100 ####[facility] [address] [place], [address] AST [Catalytic activity/Vol] 20 U/L Normal <=31 [facility] Comment on above: Performed By: #### L 500.4050, L100.0100 ####[facility] [address] [place], [address] Bilirubin [Mass/Vol] 0.32 mg/dL Normal 0.00-1.30 [facility] Comment on above: Performed By: #### L 500.4050, L100.0100 ####[facility] [address] [place], [address] BUN/CRE 19.3 RATIO Normal 10-20 [facility] Comment on above: Performed By: #### L 500.4050, L100.0100 ####[facility] [address] [place], [address] Calcium [Mass/Vol] 8.7 mg/dL Normal 7.6-11.0 [facility] Comment on above: Performed By: #### L 500.4050, L100.0100 ####[facility] [address] [place], [address] Chloride [Moles/Vol] 100 mmol/L Normal 96-108 [facility] Comment on above: Performed By: #### L 500.4050, L100.0100 ####[facility] [address] [place], [address] CO2 [Moles/Vol] 26.3 mmol/L Normal 22.0-29.0 [facility] Comment on above: Performed By: #### L 500.4050, L100.0100 ####[facility] [address] [place], [address] Creatinine [Mass/Vol] 1.8 mg/dL High 0.6-1.[address] [facility] Comment on above: Performed By: #### L 500.4050, L100.0100 ####[facility] [address] [place], [address] ECRCL 22.25 ml/min Normal [facility] Comment on above: Performed By: #### L 500.4050, L100.0100 ####[facility] [address] [place], [address] GFR/1.73 sq M.predicted among non-blacks MDRD (S/P/Bld) [Vol rate/Area] 32 mL/min/{1.73_m2} Low >60 [facility] Comment on above: Result Comment: mL/m in/1.73m2 CKD-EPI Creatinine Equation (2020) Performed By: #### L 500.4050, L100.0100 ####[facility] [address] [place], [address] Globulin (S) [Mass/Vol] 3.6 g/dL Normal 2.2-4.2 [facility] Comment on above: Performed By: #### L 500.4050, L100.0100 ####[facility] [address] [place], [address] Glucose [Mass/Vol] 68 mg/dL Low 70-99 [facility] Comment on above: Performed By: #### L 500.4050, L100.0100 ####[facility] [address] [place], [address] Potassium [Moles/Vol] 4.0 mmol/L Normal 3.3-5.[address] [facility] Comment on above: Performed By: #### L 500.4050, L100.0100 ####[facility] [address] [place], [address] Sodium [Moles/Vol] 137 mmol/L Normal 133-145 [facility] Comment on above: Performed By: #### L 500.4050, L100.0100 ####[facility] [address] [place], [address] T PROT 6.0 g/dL Normal 5.9-8.4 [facility] Comment on above: Performed By: #### L 500.4050, L100.0100 ####[facility] [address] [place], [address] Urea nitrogen [Mass/Vol] 34 mg/dL High 4-19 [facility] Comment on above: Performed By: #### L 500.4050, L100.0100 ####[facility] [address] [place], [address] Consultation - Nephrologyon 07-24-2024 Consultation - Nephrology Normal [facility] EGD Reporton 07-24-2024 EGD Report Normal [facility] MR/POSTOP.ANEon 07-24-2024 MR/POSTOP.ANE Normal [facility] MR/REJPOVRP6wp 07-24-2024 MR/POSTOPAN2 Normal [facility] No Panel InformationOrdered By: Judd Galvin on 07-24-2024 20 U/L <32 [facility] Serum globulin measurementOr dered By: Judd Galvin on 07-24-2024 Globulin (S) [Mass/Vol] 3.6 g/dL 2.2-4.2 [facility] Serum globulin measurement 3.6 g/dL 2.2-4.2 [facility] Serum or plasma alanine camargo otransferase (ALT) measurementOrdered By: Judd Galvin on 07-24-2024 ALT [Catalytic activity/Vol] 9 U/L <35 [facility] Serum or plasma albumin megan urement (mass/volume)Ordered By: Judd Galvin on 07-24-2024 Albumin [Mass/Vol] 2.4 g/dL Low 3.4-4.8 [facility] Serum or plasma albumin/glob ulin mass ratioOrdered By: Judd Galvin on 07-24-2024 Albumin/Globulin [Mass ratio] 0.7 {ratio} Low 0.9-2.4 [facility] Serum or plasma alkaline susan sphatase measurementOrdered By: Judd Galvin on 07-24-2024 ALP [Catalytic activity/Vol] 45 U/L 35-104 [facility] Total proteinOrdered By: Velia Galvin on 07-24-2024 Protein [Mass/Vol] 6.0 g/dL 5.9-8.4 [facility] Total protein 6.0 g/dL 5.9-8.4 [facility] Basic Metabolic Profile (BMP )on 07-23-2024 BUN/CRE 19.5 RATIO Normal 10-20 [facility] Comment on above: Result Comment: AMENDED REPORT 07/23/24 3993 BUN/CRE previously reported as: 18.4 RATIO Performed By: #### L 500.2500, L100.0100 ####[facility] [address] [place], [place], [id number] Creatinine [Mass/Vol] 1.7 mg/dL High 0.6-1.[address] [facility] Comment on above: Result Comment: AMENDED REPORT 07/23/241558 CREAT,SERUM previously reported as: 1.6 H mg/dL Performed By: #### L 500.2500, L100.0100 ####[facility] [address] [place], [address] ECRCL 26.32 ml/min Normal [facility] Comment on above: Result Comment: AMENDED REPORT 07/23/241558 Estimated CRCL previously reported as: 27.97 ml/min Performed By: #### L 500.2500, L100.0100 ####[facility] [address] [place], [address] GFR/1.73 sq M.predicted among non-blacks MDRD (S/P/Bld) [Vol rate/Area] 32 mL/min/{1.73_m2} Low >60 [facility] Comment on above: Result Comment: mL/m in/1.73m2 CKD-EPI Creatinine Equation (2020) AMENDED REPORT 07/23/241558 EST GFR previously reported as: 35 LmL/min/1.73m2 CKD-EPI Creatinine Equation (2020) Performed By: #### L 500.2500, L100.0100 ####[facility] [address] [place], [address] Glucose [Mass/Vol] 80 mg/dL Normal 70-99 [facility] Comment on above: Result Comment: AMENDED REPORT 07/23/241558 GLU previously reported as: 78 mg/dL Performed By: #### L 500.2500, L100.0100 ####[facility] [address] [place], [address] Urea nitrogen [Mass/Vol] 32 mg/dL High 4-19 [facility] Comment on above: Result Comment: AMENDED REPORT 07/23/241558 BUN previously reported as: 30 H mg/dL Performed By: #### L 500.2500, L100.0100 ####[facility] [address] [place], [address] Bilirubin directOrdered By: Makenzie Montalvo on 07-23-2024 Bilirubin.direct [Mass/Vol] 0.11 mg/dL 0.00-0.30 [facility] Bilirubin.direct [Mass/Vol]O rdered By: Makenzie Montalvo on 07-23-2024 Bilirubin direct 0.11 mg/dL 0.00-0.30 [facility] CBC W/Diff, Automatedon 06-30 Absolute Lymph 0.61 X10 3/uL Low 0.83-4.51 [facility] Comment on above: Performed By: #### L 500.2500, L100.0100 ####[facility] [address] [place], [address] Absolute Neut 12.5 X10 3/uL High 2.0-7.7 [facility] Comment on above: Performed By: #### L 500.2500, L100.0100 ####[facility] [address] [place], [address] Basophils/100 WBC (Bld) 0.3 % Normal 0-1 [facility] Comment on above: Performed By: #### L 500.2500, L100.0100 ####[facility] [address] [place], [address] Eosinophils/100 WBC (Bld) 0.1 % Normal 0-5 [facility] Comment on above: Performed By: #### L 500.2500, L100.0100 ####[facility] [address] [place], [address] Erythrocyte distribution width (RBC) [Ratio] 17.2 % High 11.6-14.6 [facility] Comment on above: Performed By: #### L 500.2500, L100.0100 ####[facility] [address] [place], [address] Hematocrit (Bld) [Volume fraction] 30.1 % Low 37-47 [facility] Comment on above: Performed By: #### L 500.2500, L100.0100 ####[facility] [address] [place], [address] Hemoglobin (Bld) [Mass/Vol] 8.8 g/dL Low 12.0-15.0 [facility] Comment on above: Performed By: #### L 500.2500, L100.0100 ####[facility] [address] [place], [address] IG% 2.000 High 0.0-0.9 [facility] Comment on above: Result Comment: IG% - Immature Granulocytes (promyelocytes, myelocytes andmetamyelocytes) > 1% indicates that a LEFT SHIFT is Present. Performed By: #### L 500.2500, L100.0100 ####[facility] [address] [place], [address] Lymphocytes/100 WBC (Bld) 4.3 % Low 19-41 [facility] Comment on above: Performed By: #### L 500.2500, L100.0100 ####[facility] [address] [place], [address] MCH (RBC) [Entitic mass] 26.3 pg Low 27.0-32.0 [facility] Comment on above: Performed By: #### L 500.2500, L100.0100 ####[facility] [address] [place], [address] MCHC (RBC) [Mass/Vol] 29.2 g/dL Low 32-[address] [facility] Comment on above: Performed By: #### L 500.2500, L100.0100 ####[facility] [address] [place], [address] MCV (RBC) [Entitic vol] 90.1 fL Normal 81-99 [facility] Comment on above: Performed By: #### L 500.2500, L100.0100 ####[facility] [address] [place], [address] Monocytes/100 WBC (Bld) 5.7 % Normal 0-10 [facility] Comment on above: Performed By: #### L 500.2500, L100.0100 ####[facility] [address] [place], [address] Neutrophils/100 WBC (Bld) 87.6 % High 47-70 [facility] Comment on above: Performed By: #### L 500.2500, L100.0100 ####[facility] [address] [place], [address] Nucleated RBC (Bld) [#/Vol] 0 10*3/uL Normal 0-5 [facility] Comment on above: Performed By: #### L 500.2500, L100.0100 ####[facility] [address] [place], [address] Platelet mean volume (Bld) [Entitic vol] 8.9 fL Normal 6.2-12.0 [facility] Comment on above: Performed By: #### L 500.2500, L100.0100 ####[facility] [address] [place], [address] Platelets (Bld) [#/Vol] 347 10*3/uL Normal 150-450 [facility] Comment on above: Performed By: #### L 500.2500, L100.0100 ####[facility] [address] [place], [address] RBC (Bld) [#/Vol] 3.34 10*6/uL Low 4.2-5.4 [facility] Comment on above: Performed By: #### L 500.2500, L100.0100 ####[facility] [address] [place], [address] RDW SD 55.6 fl High 35.1-43.9 [facility] Comment on above: Performed By: #### L 500.2500, L100.0100 ####[facility] [address] [place], [address] WBC (Bld) [#/Vol] 14.3 10*3/uL High 4.4-11.0 [facility] Comment on above: Performed By: #### L 500.2500, L100.0100 ####[facility] [address] [place], [address] Chloride [Moles/Vol]Ordered By: Makenzie Montalvo on 07-23-2024 Serum or plasma chloride measurement (moles/volume) 98 mmol/L 98-107 [facility] Emergency Department Summary on 07-23-2024 Emergency Department Summary Normal [facility] H AND P Exam - Hospitaliston 07-23-2024 H&P Exam - Hospitalist Normal [facility] Liver Profileon 07-23-2024 Albumin [Mass/Vol] 2.7 g/dL Low 3.4-4.8 [facility] Comment on above: Performed By: #### L 500.3400 ####[facility] [address] [place], [address] ALK PHOS 50 U/L Normal 35-104 [facility] Comment on above: Performed By: #### L 500.3400 ####[facility] [address] [place], [address] ALT [Catalytic activity/Vol] 13 U/L Normal <=34 [facility] Comment on above: Performed By: #### L 500.3400 ####[facility] [address] [place], [address] AST [Catalytic activity/Vol] 23 U/L Normal <=31 [facility] Comment on above: Result Comment: Hemo lysis present, Results??could be affected.?? Performed By: #### L 500.3400 ####[facility] [address] [place], [address] Bilirubin [Mass/Vol] 0.30 mg/dL Normal 0.00-1.30 [facility] Comment on above: Performed By: #### L 500.3400 ####[facility] [address] [place], [address] Bilirubin.direct [Mass/Vol] 0.11 mg/dL Normal 0.00-0.30 [facility] Comment on above: Result Comment: Hemo lysis present, Results??could be affected.?? Performed By: #### L 500.3400 ####[facility] [address] [place], [address] Globulin (S) [Mass/Vol] 3.7 g/dL Normal 2.2-4.2 [facility] Comment on above: Performed By: #### L 500.3400 ####[facility] [address] [place], [address] T PROT 6.3 g/dL Normal 5.9-8.4 [facility] Comment on above: Performed By: #### L 500.3400 ####[facility] [address] [place], [address] MR/CON.PCM.GIon 07-23-2024 MR/CON.PCM.GI Normal [facility] Serum or plasma chloride claudio surement (moles/volume)Ordered By: Makenzie Montalvo on 07-23-2024 Chloride [Moles/Vol] 98 mmol/L 98-107 [facility] Stool Occult Blood iFOBon STOB Negative Normal [facility] Comment on above: Performed By: #### M 100.7900 ####[facility] [address] [place], [address] Stool gastrointestinal hemog lobin detection by immunologic methodOrdered By: Makenzie Montalvo on 07-23-2024 Lower GI hemoglobin IA Ql (Stl) [facility] Urinalysis, Completeon 07-23 BACTERIA Normal None Seen [facility] Comment on above: Order Comment: ADWOA CTOR TO SPECIFY Result Comment: PT D ISCHARGED Performed By: #### L 400.0001 ####[facility] [address] [place], [address] BILIRUBIN URINE Normal Negative [facility] Comment on above: Order Comment: ADWOA CTOR TO SPECIFY Result Comment: PT D ISCHARGED Performed By: #### L 400.0001 ####[facility] [address] [place], [address] Clarity (U) Normal Clear [facility] Comment on above: Order Comment: ADWOA CTOR TO SPECIFY Result Comment: PT D ISCHARGED Performed By: #### L 400.0001 ####[facility] [address] [place], [address] Color (U) Normal Yellow [facility] Comment on above: Order Comment: ADWOA CTOR TO SPECIFY Result Comment: PT D ISCHARGED Performed By: #### L 400.0001 ####[facility] [address] [place], [address] EPI,SQUAMOUS Normal 5-10 [facility] Comment on above: Order Comment: ADWOA CTOR TO SPECIFY Result Comment: PT D ISCHARGED Performed By: #### L 400.0001 ####[facility] [address] [place], [address] GLUCOSE, UR Normal Normal [facility] Comment on above: Order Comment: ADWOA CTOR TO SPECIFY Result Comment: PT D ISCHARGED Performed By: #### L 400.0001 ####[facility] [address] [place], [address] KETONE UR Normal Negative [facility] Comment on above: Order Comment: ADWOA CTOR TO SPECIFY Result Comment: PT D ISCHARGED Performed By: #### L 400.0001 ####[facility] [address] [place], [address] LEUK ESTERASE Normal Negative [facility] Comment on above: Order Comment: ADWOA CTOR TO SPECIFY Result Comment: PT D ISCHARGED Performed By: #### L 400.0001 ####[facility] [address] [place], [address] Mucus Ql (Urine sed) Normal [facility] Comment on above: Order Comment: ADWOA CTOR TO SPECIFY Result Comment: PT D ISCHARGED Performed By: #### L 400.0001 ####[facility] [address] [place], [address] Nitrite Ql (U) Normal Negative [facility] Comment on above: Order Comment: ADWOA CTOR TO SPECIFY Result Comment: PT D ISCHARGED Performed By: #### L 400.0001 ####[facility] [address] [place], [address] OCCULT BLOOD-UR Normal Negative [facility] Comment on above: Order Comment: ADWOA CTOR TO SPECIFY Result Comment: PT D ISCHARGED Performed By: #### L 400.0001 ####[facility] [address] [place], [address] pH UR Normal 5.0 - 8.0 [facility] Comment on above: Order Comment: ADWOA CTOR TO SPECIFY Result Comment: PT D ISCHARGED Performed By: #### L 400.0001 ####[facility] [address] [place], [address] PROT DIPSTX Normal Negative [facility] Comment on above: Order Comment: ADWOA CTOR TO SPECIFY Result Comment: PT D ISCHARGED Performed By: #### L 400.0001 ####[facility] [address] [place], [address] RBC Normal 0-5 [facility] Comment on above: Order Comment: COLLE CTOR TO SPECIFY Result Comment: PT D ISCHARGED Performed By: #### L 400.0001 ####[facility] [address] [place], [address] SP.GR. DIPSTX Normal 1.002-1.03 0 [facility] Comment on above: Order Comment: COLLE CTOR TO SPECIFY Result Comment: PT D ISCHARGED Performed By: #### L 400.0001 ####[facility] [address] [place], [address] UR Preservative Normal [facility] Comment on above: Order Comment: COLLE CTOR TO SPECIFY Result Comment: PT D ISCHARGED Performed By: #### L 400.0001 ####[facility] [address] [place], [address] UROBILI Normal Normal [facility] Comment on above: Order Comment: COLLE CTOR TO SPECIFY Result Comment: PT D ISCHARGED Performed By: #### L 400.0001 ####[facility] [address] [place], [address] WBC Normal 0-5 [facility] Comment on above: Order Comment: COLLE CTOR TO SPECIFY Result Comment: PT D ISCHARGED Performed By: #### L 400.0001 ####[facility] [address] [place], [address] 12 Lead EKGon 07-18-2024 12 Lead EKG Normal [facility] ALP [Catalytic activity/Vol] Ordered By: Sheldon Toribio on 07-18-2024 Serum or plasma alkaline phosphatase measurement 48 U/L 45-117 [facility] ALT [Catalytic activity/Vol] Ordered By: Sheldon Toribio on 07-18-2024 Serum or plasma alanine aminotransferase (ALT) measurement 14 U/L 13-56 [facility] Absolute lymphocyte countOrd ered By: Sheldon Toribio on 07-18-2024 Lymphocytes Auto (Unsp spec) [#/Vol] 0.54 10*3/uL Low 0.83-4.51 [facility] Absolute neutrophil countOrd ered By: Sheldon Toribio on 07-18-2024 Absolute neutrophil count 6.7 X10^3/uL 2.0-7.7 [facility] Albumin [Mass/Vol]Ordered By : Sheldongeorge Stringero on 07-18-2024 Serum or plasma albumin measurement (mass/volume) 2.0 g/dL Low 3.2-5.0 [facility] Albumin to globulin ratioOrd ered By: Sheldon Toribio on 07-18-2024 Albumin to globulin ratio 0.4 RATIO Low 0.9-2.4 [facility] Antigen C Gammacloneon 07-18 ANTIGEN ID Negative Normal [facility] Comment on above: Performed By: #### B AGC ####[facility] [address] [place], [address] Performed By: #### B AGK ####[facility] [address] [place], [address] Antigen E Gammacloneon 07-18 ANTIGEN ID Positive Normal [facility] Comment on above: Performed By: #### B AGE ####[facility] [address] [place], [address] Antigen Fyaon 07-18-2024 ANTIGEN ID Negative Normal [facility] Comment on above: Performed By: #### B AGFYA ####[facility] [address] [place], [address] Automated lymphocyte count a s percentage of total leukocytesOrdered By: Sheldon Toribio on 07-18-2024 Lymphocytes/100 WBC Auto (Unsp spec) 6.6 % Low 19-41 [facility] [id number] 07-18-2024 ANTIBODY ID Normal [facility] Comment on above: Order Comment: AN Result Comment: CFYA WARM Performed By: #### L 100.0100, L503.6005, BTS, L500.4050, [id number], L501.4020 ####[facility] [address] [place], [address] Base excess Calc (BldV) [Mol es/Vol]Ordered By: Sheldon Toribio on 07-18-2024 Blood base excess determination 10 mmol/L High -2-2 [facility] Basophil percentageOrdered B y: Sheldon Toribio on 07-18-2024 Basophils/100 WBC (Bld) 0.2 % 0-1 [facility] Basophil percentage 0.2 % 0-1 [facility] Bilirubin, totalOrdered By: Sheldon Toribio on 07-18-2024 Bilirubin [Mass/Vol] 0.30 mg/dL 0.20-1.00 [facility] Bilirubin, total 0.30 mg/dL 0.20-1.00 [facility] Blood Gases by CPSon 025 Base excess Calc (Bld) [Moles/Vol] 10 mmol/L High -2 to +2 [facility] Comment on above: Performed By: #### L 9000.0800 ####[facility] [address] [place], [address] Blood Gas Type ART Normal [facility] Comment on above: Performed By: #### L 9000.0800 ####[facility] [address] [place], [address] CO2 [Moles/Vol] 35 mmol/L [facility] Comment on above: Performed By: #### L 9000.0800 ####[facility] [address] [place], [address] FI02 3.0 Normal [facility] Comment on above: Performed By: #### L 9000.0800 ####[facility] [address] [place], [address] HCO3 (Bld) [Moles/Vol] 33.3 mmol/L High 22-26 [facility] Comment on above: Performed By: #### L 9000.0800 ####[facility] [address] [place], [address] Mode Not entered Normal [facility] Comment on above: Performed By: #### L 9000.0800 ####[facility] [address] [place], [address] O2 Delivery Dev Cannula Normal [facility] Comment on above: Performed By: #### L 9000.0800 ####[facility] [address] [place], [address] pCO2 42.4 mmHg Normal 35-45 [facility] Comment on above: Performed By: #### L 9000.0800 ####[facility] [address] [place], [address] pH (Bld) 7.50 [pH] High 7.35-7.45 [facility] Comment on above: Performed By: #### L 9000.0800 ####[facility] [address] [place], [address] PO2 82 mmHG Normal 75-100 [facility] Comment on above: Performed By: #### L 9000.0800 ####[facility] [address] [place], [address] SITE L Brach Normal [facility] Comment on above: Performed By: #### L 9000.0800 ####[facility] [address] [place], [address] SO2 97 Normal 95-99 [facility] Comment on above: Performed By: #### L 9000.0800 ####[facility] [address] [place], [address] Blood base excess determinat ionOrdered By: Sheldon Toribio on 07-18-2024 Base excess Calc (BldV) [Moles/Vol] 10 mmol/L High -2-2 [facility] Blood bicarbonate measuremen tOrdered By: Sheldon Toribio on 07-18-2024 HCO3 (Bld) [Moles/Vol] 33.3 mmol/L High 22-26 [facility] Blood bicarbonate measurement 33.3 mmol/L High [facility] Blood urea nitrogen (BUN)/cr eatinine ratioOrdered By: Sheldon Toribio on 07-18-2024 Blood urea nitrogen (BUN)/creatinine ratio 14.8 RATIO 03-17 [facility] CBC W/Diff, Automatedon 06-30 Absolute Lymph 0.54 X10 3/uL Low 0.83-4.51 [facility] Comment on above: Performed By: #### L 100.0100, L503.6005, BTS, L500.4050, [id number], L501.4020 ####[facility] [address] [place], [address] Absolute Neut 6.7 X10 3/uL Normal 2.0-7.7 [facility] Comment on above: Performed By: #### L 100.0100, L503.6005, BTS, L500.4050, BVYC7734, L501.4020 ####[facility] [address] [place], [address] Basophils/100 WBC (Bld) 0.2 % Normal 0-1 [facility] Comment on above: Performed By: #### L 100.0100, L503.6005, BTS, L500.4050, URPE7626, L501.4020 ####[facility] [address] [place], [address] Eosinophils/100 WBC (Bld) 0.7 % Normal 0-5 [facility] Comment on above: Performed By: #### L 100.0100, L503.6005, BTS, L500.4050, PZEG7699, L501.4020 ####[facility] [address] [place], [address] Erythrocyte distribution width (RBC) [Ratio] 16.8 % High 11.6-14.6 [facility] Comment on above: Performed By: #### L 100.0100, L503.6005, BTS, L500.4050, ANBU9354, L501.4020 ####[facility] [address] [place], [address] Hematocrit (Bld) [Volume fraction] 32.7 % Low 37-47 [facility] Comment on above: Performed By: #### L 100.0100, L503.6005, BTS, L500.4050, NLNT3526, L501.4020 ####[facility] [address] [place], [address] Hemoglobin (Bld) [Mass/Vol] 9.7 g/dL Low 12.0-15.0 [facility] Comment on above: Performed By: #### L 100.0100, L503.6005, BTS, L500.4050, QSOO2121, L501.4020 ####[facility] [address] [place], [address] IG% 1.700 High 0.0-0.9 [facility] Comment on above: Result Comment: IG% - Immature Granulocytes (promyelocytes, myelocytes andmetamyelocytes) > 1% indicates that a LEFT SHIFT is Present. Performed By: #### L 100.0100, L503.6005, BTS, L500.4050, [id number], L501.4020 ####[facility] [address] [place], [address] Lymphocytes/100 WBC (Bld) 6.6 % Low 19-41 [facility] Comment on above: Performed By: #### L 100.0100, L503.6005, BTS, L500.4050, TBXV2161, L501.4020 ####[facility] [address] [place], [address] MCH (RBC) [Entitic mass] 26.6 pg Low 27.0-32.0 [facility] Comment on above: Performed By: #### L 100.0100, L503.6005, BTS, L500.4050, ZTZI2742, L501.4020 ####[facility] [address] [place], [address] MCHC (RBC) [Mass/Vol] 29.7 g/dL Low 32-[address] [facility] Comment on above: Performed By: #### L 100.0100, L503.6005, BTS, L500.4050, JITR7812, L501.4020 ####[facility] [address] [place], [address] MCV (RBC) [Entitic vol] 89.6 fL Normal 81-99 [facility] Comment on above: Performed By: #### L 100.0100, L503.6005, BTS, L500.4050, GOKI5125, L501.4020 ####[facility] [address] [place], [address] Monocytes/100 WBC (Bld) 9.7 % Normal 0-10 [facility] Comment on above: Performed By: #### L 100.0100, L503.6005, BTS, L500.4050, MEEX7754, L501.4020 ####[facility] [address] [place], [address] Neutrophils/100 WBC (Bld) 81.1 % High 47-70 [facility] Comment on above: Performed By: #### L 100.0100, L503.6005, BTS, L500.4050, AYZW3021, L501.4020 ####[facility] [address] [place], [address] Nucleated RBC (Bld) [#/Vol] 0 10*3/uL Normal 0-5 [facility] Comment on above: Performed By: #### L 100.0100, L503.6005, BTS, L500.4050, EMSU7538, L501.4020 ####[facility] [address] [place], [address] Platelet mean volume (Bld) [Entitic vol] 9.0 fL Normal 6.2-12.0 [facility] Comment on above: Performed By: #### L 100.0100, L503.6005, BTS, L500.4050, EWGM2121, L501.4020 ####[facility] [address] [place], [address] Platelets (Bld) [#/Vol] 281 10*3/uL Normal 150-450 [facility] Comment on above: Performed By: #### L 100.0100, L503.6005, BTS, L500.4050, SVFH1006, L501.4020 ####[facility] [address] [place], [address] RBC (Bld) [#/Vol] 3.65 10*6/uL Low 4.2-5.4 [facility] Comment on above: Performed By: #### L 100.0100, L503.6005, BTS, L500.4050, UXWH1915, L501.4020 ####[facility] [address] [place], [address] RDW SD 54.5 fl High 35.1-43.9 [facility] Comment on above: Performed By: #### L 100.0100, L503.6005, BTS, L500.4050, [id number], L501.4020 ####[facility] [address] [place], [address] WBC (Bld) [#/Vol] 8.2 10*3/uL Normal 4.4-11.0 [facility] Comment on above: Performed By: #### L 100.0100, L503.6005, BTS, L500.4050, [id number], L501.4020 ####[facility] [address] [place], [address] CTA Abd/Pelvis W/WO Contrast on 07-18-2024 CTA Abd/Pelvis W/WO Contrast Normal [facility] Calcium [Mass/Vol]Ordered By : Sheldon Toribio on 07-18-2024 Serum or plasma calcium measurement (mass/volume) 8.7 mg/dL 8.5-10.1 [facility] Carbon dioxide measurementOr dered By: Sheldon Toribio on 07-18-2024 CO2 [Moles/Vol] 34.0 mmol/L High 21.0-32.0 [facility] Carbon dioxide measurement 34.0 mmol/L High 21.0-32.0 [facility] Chloride measurementOrdered By: Sheldon Toribio on 07-18-2024 Chloride [Moles/Vol] 97 mmol/L Low 98-107 [facility] Chloride measurement 97 mmol/L Low 98-107 [facility] Comprehensive Metabolic Prof ilon 07-18-2024 Albumin [Mass/Vol] 2.0 g/dL Low 3.2-5.0 [facility] Comment on above: Order Comment: 'TROP ' Serial specimen #1, #2 or #3: 1 Performed By: #### L 100.0100, L503.6005, BTS, L500.4050, [id number], L501.4020 ####[facility] [address] [place], [address] Albumin/Globulin [Mass ratio] 0.4 {ratio} Low 0.9-2.4 [facility] Comment on above: Order Comment: 'TROP ' Serial specimen #1, #2 or #3: 1 Performed By: #### L 100.0100, L503.6005, BTS, L500.4050, [id number], L501.4020 ####[facility] [address] [place], [address] ALK P 48 U/L Normal 45-117 [facility] Comment on above: Order Comment: 'TROP ' Serial specimen #1, #2 or #3: 1 Performed By: #### L 100.0100, L503.6005, BTS, L500.4050, [id number], L501.4020 ####[facility] [address] [place], [address] ALT [Catalytic activity/Vol] 14 U/L Normal 13-56 [facility] Comment on above: Order Comment: 'TROP ' Serial specimen #1, #2 or #3: 1 Performed By: #### L 100.0100, L503.6005, BTS, L500.4050, [id number], L501.4020 ####[facility] [address] [place], [address] AST [Catalytic activity/Vol] 18 U/L Normal 15-37 [facility] Comment on above: Order Comment: 'TROP ' Serial specimen #1, #2 or #3: 1 Performed By: #### L 100.0100, L503.6005, BTS, L500.4050, [id number], L501.4020 ####[facility] [address] [place], [address] Bilirubin [Mass/Vol] 0.30 mg/dL Normal 0.20-1.00 [facility] Comment on above: Order Comment: 'TROP ' Serial specimen #1, #2 or #3: 1 Result Comment: For patients on eltrombopag therapy, use of Dimension [place] TBIL is not recommended. Performed By: #### L 100.0100, L503.6005, BTS, L500.4050, [id number], L501.4020 ####[facility] [address] [place], [address] BUN/CRE 14.8 RATIO Normal 10-20 [facility] Comment on above: Order Comment: 'TROP ' Serial specimen #1, #2 or #3: 1 Performed By: #### L 100.0100, L503.6005, BTS, L500.4050, [id number], L501.4020 ####[facility] [address] [place], [address] CA,Total 8.7 mg/dL Normal 8.5-10.1 [facility] Comment on above: Order Comment: 'TROP ' Serial specimen #1, #2 or #3: 1 Performed By: #### L 100.0100, L503.6005, BTS, L500.4050, [id number], L501.4020 ####[facility] [address] [place], [address] Chloride [Moles/Vol] 97 mmol/L Low 98-107 [facility] Comment on above: Order Comment: 'TROP ' Serial specimen #1, #2 or #3: 1 Performed By: #### L 100.0100, L503.6005, BTS, L500.4050, [id number], L501.4020 ####[facility] [address] [place], [address] CO2 [Moles/Vol] 34.0 mmol/L High 21.0-32.0 [facility] Comment on above: Order Comment: 'TROP ' Serial specimen #1, #2 or #3: 1 Performed By: #### L 100.0100, L503.6005, BTS, L500.4050, [id number], L501.4020 ####[facility] [address] [place], [address] Creatinine [Mass/Vol] 1.69 mg/dL High 0.55-1.[address] [facility] Comment on above: Order Comment: 'TROP ' Serial specimen #1, #2 or #3: 1 Result Comment: The validity of the calculated GFR GFRAA in patients over70 years has not been determined. Clinical correlation isessential. Performed By: #### L 100.0100, L503.6005, BTS, L500.4050, [id number], L501.4020 ####[facility] [address] [place], [address] ECRCL 26.75 ml/min Normal [facility] Comment on above: Order Comment: 'TROP ' Serial specimen #1, #2 or #3: 1 Performed By: #### L 100.0100, L503.6005, BTS, L500.4050, [id number], L501.4020 ####[facility] [address] [place], [address] EST GFR - AA 39 mL/min Low >60 [facility] Comment on above: Order Comment: 'TROP ' Serial specimen #1, #2 or #3: 1 Result Comment: Afri can [place] GFR Calc Performed By: #### L 100.0100, L503.6005, BTS, L500.4050, [id number], L501.4020 ####[facility] [address] [place], [address] GAP 4 Low 5-15 [facility] Comment on above: Order Comment: 'TROP ' Serial specimen #1, #2 or #3: 1 Performed By: #### L 100.0100, L503.6005, BTS, L500.4050, [id number], L501.4020 ####[facility] [address] [place], [address] GFR/1.73 sq M.predicted among non-blacks MDRD (S/P/Bld) [Vol rate/Area] 33 mL/min/{1.73_m2} Low >60 [facility] Comment on above: Order Comment: 'TROP ' Serial specimen #1, #2 or #3: 1 Result Comment: Non- GFR Calc Performed By: #### L 100.0100, L503.6005, BTS, L500.4050, [id number], L501.4020 ####[facility] [address] [place], [address] Globulin (S) [Mass/Vol] 5.1 g/dL High 2.2-4.2 [facility] Comment on above: Order Comment: 'TROP ' Serial specimen #1, #2 or #3: 1 Performed By: #### L 100.0100, L503.6005, BTS, L500.4050, [id number], L501.4020 ####[facility] [address] [place], [address] Glucose [Mass/Vol] 89 mg/dL Normal 74-106 [facility] Comment on above: Order Comment: 'TROP ' Serial specimen #1, #2 or #3: 1 Performed By: #### L 100.0100, L503.6005, BTS, L500.4050, [id number], L501.4020 ####[facility] [address] [place], [address] Potassium [Moles/Vol] 4.1 mmol/L Normal 3.5-5.[address] [facility] Comment on above: Order Comment: 'TROP ' Serial specimen #1, #2 or #3: 1 Performed By: #### L 100.0100, L503.6005, BTS, L500.4050, [id number], L501.4020 ####[facility] [address] [place], [address] Sodium [Moles/Vol] 135 mmol/L Low 136-145 [facility] Comment on above: Order Comment: 'TROP ' Serial specimen #1, #2 or #3: 1 Performed By: #### L 100.0100, L503.6005, BTS, L500.4050, [id number], L501.4020 ####[facility] [address] [place], [address] T PROT 7.1 g/dL Normal 6.4-8.2 [facility] Comment on above: Order Comment: 'TROP ' Serial specimen #1, #2 or #3: 1 Performed By: #### L 100.0100, L503.6005, BTS, L500.4050, [id number], L501.4020 ####[facility] [address] [place], [address] Urea nitrogen [Mass/Vol] 25 mg/dL High 7-18 [facility] Comment on above: Order Comment: 'TROP ' Serial specimen #1, #2 or #3: 1 Performed By: #### L 100.0100, L503.6005, BTS, L500.4050, [id number], L501.4020 ####[facility] [address] [place], [place], [address] Creatinine [Mass/Vol]Ordered By: Sheldon Toribio on 07-18-2024 Serum or plasma creatinine measurement (mass/volume) 1.69 mg/dL High 0.55-1.02 [facility] Determination of fraction of inspired oxygenOrdered By: Sheldon Toribio on 07-18-2024 Determination of fraction of inspired oxygen 3.0 [facility] Emergency Department Summary on 07-18-2024 Emergency Department Summary Normal [facility] Eosinophil percentageOrdered By: Sheldongeorge Toribio on 07-18-2024 Eosinophils/100 WBC (Bld) 0.7 % 0-5 [facility] Eosinophil percentage 0.7 % 0-[address] [facility] Erythrocyte distribution wid th (RBC) [Ratio]Ordered By: Sheldon Toribio on 07-18-2024 Erythrocyte distribution width ratio 16.8 % High 11.6-14.6 [facility] Erythrocyte distribution wid th ratioOrdered By: Sheldon Stringero on 07-18-2024 Erythrocyte distribution width (RBC) [Ratio] 16.8 % High 11.6-14.6 [facility] Erythrocyte distribution wid th standard deviationOrdered By: Sheldon Toribio on 07-18-2024 Erythrocyte distribution width (RBC) [Ratio] 54.5 fl High 35.1-43.9 [facility] Erythrocyte distribution width standard deviation 54.5 fl High 35.1-43.9 [facility] Estimated glomerular filtrat ion rate (GFR) AmericanOrdered By: Sheldon Toribio on 07-18-2024 Estimated glomerular filtration rate (GFR) 39 mL/min Low >60 [facility] Estimation of creatinine austen aranceOrdered By: Sheldon Toribio on 07-18-2024 Estimation of creatinine clearance 26.75 ml/min [facility] Gastroenterology Visit Repor ton 07-18-2024 Gastroenterology Visit Report Normal [facility] Glomerular filtration rate ( GFR) estimationOrdered By: Sheldon Toribio on 07-18-2024 GFR/1.73 sq M.predicted among non-blacks MDRD (S/P/Bld) [Vol rate/Area] 33 mL/min/{1.73_m2} Low >60 [facility] Glomerular filtration rate (GFR) estimation 33 mL/min Low >60 [facility] Glucose measurementOrdered B y: Sheldon Toribio on 07-18-2024 Glucose [Mass/Vol] 89 mg/dL 74-106 [facility] Glucose measurement 89 mg/dL 74-106 [facility] Hematocrit Auto (Bld) [Volum e fraction]Ordered By: Sheldon Toribio on 07-18-2024 Hematocrit (Bld) [Volume fraction] 32.7 % Low 37-47 [facility] Automated blood hematocrit (percentage) 32.7 % Low 37-47 [facility] Hemoglobin measurementOrdere d By: Sheldon Toribio on 07-18-2024 Hemoglobin (Bld) [Mass/Vol] 9.7 g/dL Low 12.0-15.0 [facility] Hemoglobin measurement 9.7 g/dL Low 12.0-15.0 [facility] Immature granulocytes/100 WB C Auto (Bld)Ordered By: Sheldon Toribio on 07-18-2024 Immature granulocytes/100 WBC (Bld) 1.700 % High 0.0-0.9 [facility] Automated immature granulocyte percentage 1.700 % High 0.0-0.9 [facility] L501.4020on 07-18-2024 TROPONIN-I HS 24 pg/mL Normal 3.0-54.0 [facility] Comment on above: Order Comment: 'TROP ' Serial specimen #1, #2 or #3: 1 Result Comment: Jorge L patterson Note: New Test Units and Gender Specific Reference Ranges. For more information see Policy Stat Procedure [place] High Sensitivity Troponin (TNIH) and attachments. Performed By: #### L 100.0100, L503.6005, BTS, L500.4050, [id number], L501.4020 ####[facility] [address] [place], [address] Lactic Acidon 07-18-2024 Lactate [Moles/Vol] 1.3 mmol/L Normal 0.4-1.9 [facility] Comment on above: Order Comment: Y Performed By: #### L 100.0100, L503.6005, BTS, L500.4050, [id number], L501.4020 ####[facility] [address] [place], [address] Lactic acid measurementOrder ed By: Sheldon Catarino on 07-18-2024 Lactic acid measurement 1.3 mmol/L 0.4-2.0 [facility] Lymphocytes Auto (Unsp spec) [#/Vol]Ordered By: Sheldon Toribio on 07-18-2024 Absolute lymphocyte count 0.54 X10^3/uL Low 0.83-4.51 [facility] Lymphocytes/100 WBC Auto (Un sp spec)Ordered By: Sheldon Toribio on 07-18-2024 Automated lymphocyte count as percentage of total leukocytes 6.6 % Low 19-41 [facility] MCV (RBC) [Entitic vol]Order ed By: Sheldon Toribio on 07-18-2024 MCV (mean corpuscular volume) determination 89.6 fL 81-99 [facility] MCV (mean corpuscular volume ) determinationOrdered By: Sheldon Toribio on 07-18-2024 MCV (RBC) [Entitic vol] 89.6 fL 81-99 [facility] Mean corpuscular hemoglobin (MCH) determinationOrdered By: Sheldon Toribio on 07-18-2024 MCH (RBC) [Entitic mass] 26.6 pg Low 27.0-32.0 [facility] Mean corpuscular hemoglobin (MCH) determination 26.6 pg Low 27.0-32.0 [facility] Mean corpuscular hemoglobin concentration (MCHC) determinationOrdered By: Sheldon Toribio on 07-18-2024 Mean corpuscular hemoglobin concentration (MCHC) determination 29.7 g/dL Low 32-36 [facility] Mean platelet volume determi nationOrdered By: Sheldon Toribio on 07-18-2024 Mean platelet volume determination 9.0 fl 6.2-12.0 [facility] Measurement, pHOrdered By: Gildardo Toribio on 07-18-2024 pH (Unsp spec) 7.50 [pH] High 7.35-7.45 [facility] Monocyte percentageOrdered B y: Sheldon Toribio on 07-18-2024 Monocytes/100 WBC (Bld) 9.7 % 0-10 [facility] Monocyte percentage 9.7 % 0-10 [facility] Neutrophil percentageOrdered By: Sheldon Toribio on 07-18-2024 Neutrophils/100 WBC (Bld) 81.1 % High 47-70 [facility] Neutrophil percentage 81.1 % High 47-[address] [facility] No Panel InformationOrdered By: Sheldon Toribio on 07-18-2024 ART [facility] L Brach [facility] Not entered [facility] Cannula [facility] 18 U/L 15-37 [facility] Nucleated red blood cell per centageOrdered By: Sheldon Toribio on 07-18-2024 Nucleated red blood cell percentage 0 % 0-5 [facility] Oxygen saturation measuremen tOrdered By: Sheldon Toribio on 07-18-2024 Oxygen saturation measurement 97 % 95-99 [facility] Partial pressure of carbon d ioxide measurementOrdered By: Sheldon Toribio on 07-18-2024 Partial pressure of carbon dioxide measurement 42.4 mmHg 35-45 [facility] Partial pressure of oxygen m easurementOrdered By: Sheldon Toribio on 07-18-2024 Partial pressure of oxygen measurement 82 mmHG 75-100 [facility] Platelet countOrdered By: Savana Toribio on 07-18-2024 Platelets (Bld) [#/Vol] 281 10*3/uL 150-450 [facility] Platelet count 281 K/mm3 150-450 [facility] Potassium measurementOrdered By: Sheldon Toribio on 07-18-2024 Potassium [Moles/Vol] 4.1 mmol/L 3.5-5.[address] [facility] Potassium measurement 4.1 mmol/L 3.5-5.[address] [facility] RBC Auto (Bld) [#/Vol]Ordere d By: Sheldon Toribio on 07-18-2024 RBC (Bld) [#/Vol] 3.65 10*6/uL Low 4.2-5.4 [facility] Automated blood erythrocyte count 3.65 M/mm3 Low 4.2-5.4 [facility] Serum anion gap measurementO rdered By: Sheldon Toribio on 07-18-2024 Serum anion gap measurement 4 Low 5-15 [facility] Serum globulin measurementOr dered By: Sheldon Toribio on 07-18-2024 Globulin (S) [Mass/Vol] 5.1 g/dL High 2.2-4.2 [facility] Serum globulin measurement 5.1 g/dL High 2.2-4.2 [facility] Serum or plasma alanine camargo otransferase (ALT) measurementOrdered By: Shelodn Toribio on 07-18-2024 ALT [Catalytic activity/Vol] 14 U/L 13-56 [facility] Serum or plasma albumin megan urement (mass/volume)Ordered By: Sheldon Toribio on 07-18-2024 Albumin [Mass/Vol] 2.0 g/dL Low 3.2-5.0 [facility] Serum or plasma alkaline susan sphatase measurementOrdered By: Sheldon Toribio 07-18-2024 ALP [Catalytic activity/Vol] 48 U/L 45-117 [facility] Serum or plasma calcium megan urement (mass/volume)Ordered By: Sheldon Toribio on 07-18-2024 Calcium [Mass/Vol] 8.7 mg/dL 8.5-10.1 [facility] Serum or plasma creatinine m easurement (mass/volume)Ordered By: Sheldon Toribio on 07-18-2024 Creatinine [Mass/Vol] 1.69 mg/dL High 0.55-1.[address] [facility] Serum or plasma urea nitroge n measurement (mass/volume)Ordered By: Sheldon Toribio on 07-18-2024 Urea nitrogen [Mass/Vol] 25 mg/dL High 7-18 [facility] Sodium levelOrdered By: Sheldon Toribio on 07-18-2024 Sodium [Moles/Vol] 135 mmol/L Low 136-145 [facility] Sodium level 135 mmol/L Low 136-145 [facility] Total carbon dioxide measure mentOrdered By: Sheldon Toribio on 07-18-2024 CO2 [Moles/Vol] 35 mmol/L [facility] Total carbon dioxide measurement 35 mmol/L [facility] Total proteinOrdered By: Sheldon Toribio on 07-18-2024 Protein [Mass/Vol] 7.1 g/dL 6.4-8.2 [facility] Total protein 7.1 g/dL 6.4-8.2 [facility] Troponin IOrdered By: Sheldon hall on 07-18-2024 Troponin I 24 pg/mL 3.0-54.0 [facility] Troponin I 24 pg/mL 3.0-54.0 [facility] Type AND Screenon 07-18-2024 ABO and Rh group Nom (Bld) Blood group O Rh(D) positive Normal [facility] Comment on above: Order Comment: AN Performed By: #### L 100.0100, L503.6005, BTS, L500.4050, [id number], L501.4020 ####[facility] [address] [place], [address] Urea nitrogen [Mass/Vol]Orde red By: Sheldon Toribio on 07-18-2024 Serum or plasma urea nitrogen measurement (mass/volume) 25 mg/dL High 12-13 [facility] White blood cell (WBC) count Ordered By: Sheldon Toribio on 07-18-2024 WBC (Bld) [#/Vol] 8.2 10*3/uL 4.4-11.0 [facility] White blood cell (WBC) count 8.2 K/mm3 4.4-11.0 [facility] pH (Unsp spec)Ordered By: Savana Toribio on 07-18-2024 Measurement, pH 7.50 High 7.35-7.45 [facility] Absolute lymphocyte countOrd ered By: Millie Massey on 06-25-2024 Lymphocytes Auto (Unsp spec) [#/Vol] 0.69 10*3/uL Low 0.83-4.51 [facility] Absolute neutrophil countOrd ered By: Millie Massey on 06-25-2024 Absolute neutrophil count 2.8 X10^3/uL 2.0-7.7 [facility] Automated lymphocyte count a s percentage of total leukocytesOrdered By: Millie Massey on 06-25-2024 Lymphocytes/100 WBC Auto (Unsp spec) 15.6 % Low 19-41 [facility] Basic Metabolic Profile (BMP )on 06-25-2024 BUN/CRE 15.7 RATIO Normal 10-20 [facility] Comment on above: Order Comment: 103.1 Performed By: #### L 501.9520, L500.2500, L100.0100 ####[facility] [address] [place], [address] CA,Total 8.5 mg/dL Normal 8.5-10.1 [facility] Comment on above: Order Comment: 103.1 Performed By: #### L 501.9520, L500.2500, L100.0100 ####[facility] [address] [place], [address] Chloride [Moles/Vol] 104 mmol/L Normal 98-107 [facility] Comment on above: Order Comment: 103.1 Performed By: #### L 501.9520, L500.2500, L100.0100 ####[facility] [address] [place], [address] CO2 [Moles/Vol] 29.0 mmol/L Normal 21.0-32.0 [facility] Comment on above: Order Comment: 103.1 Performed By: #### L 501.9520, L500.2500, L100.0100 ####[facility] [address] [place], [address] Creatinine [Mass/Vol] 2.48 mg/dL High 0.55-1.[address] [facility] Comment on above: Order Comment: 103.1 Result Comment: The validity of the calculated GFR GFRAA in patients over70 years has not been determined. Clinical correlation isessential. Performed By: #### L 501.9520, L500.2500, L100.0100 ####[facility] [address] [place], [address] EST GFR - AA 25 mL/min Low >60 [facility] Comment on above: Order Comment: 103.1 Result Comment: Afri can [place] GFR Calc Performed By: #### L 501.9520, L500.2500, L100.0100 ####[facility] [address] [place], [address] GAP 3 Low 5-15 [facility] Comment on above: Order Comment: 103.1 Performed By: #### L 501.9520, L500.2500, L100.0100 ####[facility] [address] [place], [address] GFR/1.73 sq M.predicted among non-blacks MDRD (S/P/Bld) [Vol rate/Area] 21 mL/min/{1.73_m2} Low >60 [facility] Comment on above: Order Comment: 103.1 Result Comment: Non- GFR Calc Performed By: #### L 501.9520, L500.2500, L100.0100 ####[facility] [address] [place], [address] Glucose [Mass/Vol] 84 mg/dL Normal 74-106 [facility] Comment on above: Order Comment: 103.1 Performed By: #### L 501.9520, L500.2500, L100.0100 ####[facility] [address] [place], [address] Potassium [Moles/Vol] 4.6 mmol/L Normal 3.5-5.[address] [facility] Comment on above: Order Comment: 103.1 Performed By: #### L 501.9520, L500.2500, L100.0100 ####[facility] [address] [place], [address] Sodium [Moles/Vol] 136 mmol/L Normal 136-145 [facility] Comment on above: Order Comment: 103.1 Performed By: #### L 501.9520, L500.2500, L100.0100 ####[facility] [address] [place], [address] Urea nitrogen [Mass/Vol] 39 mg/dL High 7-18 [facility] Comment on above: Order Comment: 103.1 Performed By: #### L 501.9520, L500.2500, L100.0100 ####[facility] [address] [place], [address] Basophil percentageOrdered B y: Millie Massey on 06-25-2024 Basophils/100 WBC (Bld) 0.7 % 0-1 [facility] Basophil percentage 0.7 % 0-1 [facility] Blood urea nitrogen (BUN)/cr eatinine ratioOrdered By: Millie Massey on 06-25-2024 Blood urea nitrogen (BUN)/creatinine ratio 15.7 RATIO 10-20 [facility] CBC W/Diff, Automatedon 05-30 Absolute Lymph 0.69 X10 3/uL Low 0.83-4.51 [facility] Comment on above: Order Comment: 103.1 Performed By: #### L 501.9520, L500.2500, L100.0100 ####[facility] [address] [place], [address] Absolute Neut 2.8 X10 3/uL Normal 2.0-7.7 [facility] Comment on above: Order Comment: 103.1 Performed By: #### L 501.9520, L500.2500, L100.0100 ####[facility] [address] [place], [address] Basophils/100 WBC (Bld) 0.7 % Normal 0-1 [facility] Comment on above: Order Comment: 103.1 Performed By: #### L 501.9520, L500.2500, L100.0100 ####[facility] [address] [place] [place], [address] Eosinophils/100 WBC (Bld) 3.2 % Normal 0-5 [facility] Comment on above: Order Comment: 103.1 Performed By: #### L 501.9520, L500.2500, L100.0100 ####[facility] [address] [place], [address] Erythrocyte distribution width (RBC) [Ratio] 16.0 % High 11.6-14.6 [facility] Comment on above: Order Comment: 103.1 Performed By: #### L 501.9520, L500.2500, L100.0100 ####[facility] [address] [place], [address] Hematocrit (Bld) [Volume fraction] 31.2 % Low 37-47 [facility] Comment on above: Order Comment: 103.1 Performed By: #### L 501.9520, L500.2500, L100.0100 ####[facility] [address] [place], [address] Hemoglobin (Bld) [Mass/Vol] 9.4 g/dL Low 12.0-15.0 [facility] Comment on above: Order Comment: 103.1 Performed By: #### L 501.9520, L500.2500, L100.0100 ####[facility] [address] [place], [address] IG% 2.900 High 0.0-0.9 [facility] Comment on above: Order Comment: 103.1 Result Comment: IG% - Immature Granulocytes (promyelocytes, myelocytes andmetamyelocytes) > 1% indicates that a LEFT SHIFT is Present. Performed By: #### L 501.9520, L500.2500, L100.0100 ####[facility] [address] [place], [address] Lymphocytes/100 WBC (Bld) 15.6 % Low 19-41 [facility] Comment on above: Order Comment: 103.1 Performed By: #### L 501.9520, L500.2500, L100.0100 ####[facility] [address] [place], [address] MCH (RBC) [Entitic mass] 27.1 pg Normal 27.0-32.0 [facility] Comment on above: Order Comment: 103.1 Performed By: #### L 501.9520, L500.2500, L100.0100 ####[facility] [address] [place], [address] MCHC (RBC) [Mass/Vol] 30.1 g/dL Low 32-[address] [facility] Comment on above: Order Comment: 103.1 Performed By: #### L 501.9520, L500.2500, L100.0100 ####[facility] [address] [place], [address] MCV (RBC) [Entitic vol] 89.9 fL Normal 81-99 [facility] Comment on above: Order Comment: 103.1 Performed By: #### L 501.9520, L500.2500, L100.0100 ####[facility] [address] [place], [address] Monocytes/100 WBC (Bld) 13.8 % High 0-10 [facility] Comment on above: Order Comment: 103.1 Performed By: #### L 501.9520, L500.2500, L100.0100 ####[facility] [address] [place], [address] Neutrophils/100 WBC (Bld) 63.8 % Normal 47-70 [facility] Comment on above: Order Comment: 103.1 Performed By: #### L 501.9520, L500.2500, L100.0100 ####[facility] [address] [place], [address] Nucleated RBC (Bld) [#/Vol] 0 10*3/uL Normal 0-5 [facility] Comment on above: Order Comment: 103.1 Performed By: #### L 501.9520, L500.2500, L100.0100 ####[facility] [address] [place], [address] Platelet mean volume (Bld) [Entitic vol] 9.4 fL Normal 6.2-12.0 [facility] Comment on above: Order Comment: 103.1 Performed By: #### L 501.9520, L500.2500, L100.0100 ####[facility] [address] [place], [address] Platelets (Bld) [#/Vol] 142 10*3/uL Low 150-450 [facility] Comment on above: Order Comment: 103.1 Performed By: #### L 501.9520, L500.2500, L100.0100 ####[facility] [address] [place], [address] RBC (Bld) [#/Vol] 3.47 10*6/uL Low 4.2-5.4 [facility] Comment on above: Order Comment: 103.1 Performed By: #### L 501.9520, L500.2500, L100.0100 ####[facility] [address] [place], [address] RDW SD 52.8 fl High 35.1-43.9 [facility] Comment on above: Order Comment: 103.1 Performed By: #### L 501.9520, L500.2500, L100.0100 ####[facility] [address] [place], [place], [address] WBC (Bld) [#/Vol] 4.4 10*3/uL Normal 4.4-11.0 [facility] Comment on above: Order Comment: 103.1 Performed By: #### L 501.6127, L500.2500, L100.0100 ####[facility] [address] [facility] [address] [place], [address] Calcium [Mass/Vol]Ordered By : Millie Massey on 06-25-2024 Serum or plasma calcium measurement (mass/volume) 8.5 mg/dL 8.5-10.1 [facility] Carbon dioxide measurementOr dered By: Millie Massey on 06-25-2024 CO2 [Moles/Vol] 29.0 mmol/L 21.0-32.0 [facility] Carbon dioxide measurement 29.0 mmol/L 21.0-32.0 [facility] Chloride measurementOrdered By: Millie Massey on 06-25-2024 Chloride [Moles/Vol] 104 mmol/L 98-107 [facility] Chloride measurement 104 mmol/L 98-107 [facility] Creatinine [Mass/Vol]Ordered By: Millie Massey on 06-25-2024 Serum or plasma creatinine measurement (mass/volume) 2.48 mg/dL High 0.55-1.02 [facility] Eosinophil percentageOrdered By: Millie Massey on 06-25-2024 Eosinophils/100 WBC (Bld) 3.2 % 0-5 [facility] Eosinophil percentage 3.2 % 0-[address] [facility] Erythrocyte distribution wid th (RBC) [Ratio]Ordered By: Millie Massey on 06-25-2024 Erythrocyte distribution width ratio 16.0 % High 11.6-14.6 [facility] Erythrocyte distribution wid th ratioOrdered By: Millie Massey on 06-25-2024 Erythrocyte distribution width (RBC) [Ratio] 16.0 % High 11.6-14.6 [facility] Erythrocyte distribution wid th standard deviationOrdered By: Millie aMssey on 06-25-2024 Erythrocyte distribution width (RBC) [Ratio] 52.8 fl High 35.1-43.9 [facility] Erythrocyte distribution width standard deviation 52.8 fl High 35.1-43.9 [facility] Estimated glomerular filtrat ion rate (GFR) AmericanOrdered By: Millie Massey on 06-25-2024 Estimated glomerular filtration rate (GFR) 25 mL/min Low >60 [facility] Glomerular filtration rate ( GFR) estimationOrdered By: Millie Massey on 06-25-2024 GFR/1.73 sq M.predicted among non-blacks MDRD (S/P/Bld) [Vol rate/Area] 21 mL/min/{1.73_m2} Low >60 [facility] Glomerular filtration rate (GFR) estimation 21 mL/min Low >60 [facility] Glucose measurementOrdered B y: Millie Massey on 06-25-2024 Glucose [Mass/Vol] 84 mg/dL 74-106 [facility] Glucose measurement 84 mg/dL 74-106 [facility] Hematocrit Auto (Bld) [Volum e fraction]Ordered By: Millie Massey on 06-25-2024 Hematocrit (Bld) [Volume fraction] 31.2 % Low 37-47 [facility] Automated blood hematocrit (percentage) 31.2 % Low 37-47 [facility] Hemoglobin measurementOrdere d By: Millie Massey on 06-25-2024 Hemoglobin (Bld) [Mass/Vol] 9.4 g/dL Low 12.0-15.0 [facility] Hemoglobin measurement 9.4 g/dL Low 12.0-15.0 [facility] Immature granulocytes/100 WB C Auto (Bld)Ordered By: Millie Massey on 06-25-2024 Immature granulocytes/100 WBC (Bld) 2.900 % High 0.0-0.9 [facility] Automated immature granulocyte percentage 2.900 % High 0.0-0.9 [facility] Lymphocytes Auto (Unsp spec) [#/Vol]Ordered By: Millie Massey on 06-25-2024 Absolute lymphocyte count 0.69 X10^3/uL Low 0.83-4.51 [facility] Lymphocytes/100 WBC Auto (Un sp spec)Ordered By: Millie Massey on 06-25-2024 Automated lymphocyte count as percentage of total leukocytes 15.6 % Low 19-41 [facility] MCV (RBC) [Entitic vol]Order ed By: Millie Massey on 06-25-2024 MCV (mean corpuscular volume) determination 89.9 fL 81-99 [facility] MCV (mean corpuscular volume ) determinationOrdered By: Millie Massey on 06-25-2024 MCV (RBC) [Entitic vol] 89.9 fL 81-99 [facility] Mean corpuscular hemoglobin (MCH) determinationOrdered By: Millie Massey on 06-25-2024 MCH (RBC) [Entitic mass] 27.1 pg 27.0-32.0 [facility] Mean corpuscular hemoglobin (MCH) determination 27.1 pg 27.0-32.0 [facility] Mean corpuscular hemoglobin concentration (MCHC) determinationOrdered By: Millie Massey on 06-25-2024 Mean corpuscular hemoglobin concentration (MCHC) determination 30.1 g/dL Low 32-36 [facility] Mean platelet volume determi nationOrdered By: Millie Massey on 06-25-2024 Mean platelet volume determination 9.4 fl 6.2-12.0 [facility] Monocyte percentageOrdered B y: Millie Massey on 06-25-2024 Monocytes/100 WBC (Bld) 13.8 % High 0-10 [facility] Monocyte percentage 13.8 % High 0-10 [facility] Neutrophil percentageOrdered By: Millie Massey on 06-25-2024 Neutrophils/100 WBC (Bld) 63.8 % 47-70 [facility] Neutrophil percentage 63.8 % 47-[address] [facility] Nucleated red blood cell per centageOrdered By: Millie Massey on 06-25-2024 Nucleated red blood cell percentage 0 % 0-5 [facility] Platelet countOrdered By: Carter Massey on 06-25-2024 Platelets (Bld) [#/Vol] 142 10*3/uL Low 150-450 [facility] Platelet count 142 K/mm3 Low 150-450 [facility] Potassium measurementOrdered By: Millie Massey on 06-25-2024 Potassium [Moles/Vol] 4.6 mmol/L 3.5-5.[address] [facility] Potassium measurement 4.6 mmol/L 3.5-5.[address] [facility] RBC Auto (Bld) [#/Vol]Ordere d By: Millie Massey on 06-25-2024 RBC (Bld) [#/Vol] 3.47 10*6/uL Low 4.2-5.4 [facility] Automated blood erythrocyte count 3.47 M/mm3 Low 4.2-5.4 [facility] Serum anion gap measurementO rdered By: Millie Massey on 06-25-2024 Serum anion gap measurement 3 Low 5-15 [facility] Serum or plasma calcium megan urement (mass/volume)Ordered By: Millie Massey on 06-25-2024 Calcium [Mass/Vol] 8.5 mg/dL 8.5-10.1 [facility] Serum or plasma creatinine m easurement (mass/volume)Ordered By: Millie Massey on 06-25-2024 Creatinine [Mass/Vol] 2.48 mg/dL High 0.55-1.[address] [facility] Serum or plasma thyroid stim ulating hormone (TSH) measurement (units/volume)Ordered By: Millie Massey on 06-25-2024 TSH Qn 0.679 uIU/mL 0.358-3.74 0 [facility] Serum or plasma urea nitroge n measurement (mass/volume)Ordered By: Millie Massey on 06-25-2024 Urea nitrogen [Mass/Vol] 39 mg/dL High 7-18 [facility] Sodium levelOrdered By: Silvana Massey on 06-25-2024 Sodium [Moles/Vol] 136 mmol/L 136-145 [facility] Sodium level 136 mmol/L 136-145 [facility] TSH QnOrdered By: Millie little on 06-25-2024 Serum or plasma thyroid stimulating hormone (TSH) measurement (units/volume) 0.679 uIU/mL 0.358-3.74 0 [facility] Thyroid Stim Hormone (TSH)on 06-25-2024 TSH 0.679 uIU/mL Normal 0.358-3.74 0 [facility] Comment on above: Order Comment: 103.1 Performed By: #### L 501.9520, L500.2500, L100.0100 ####[facility] [address] [facility] [place], [place], [address] Urea nitrogen [Mass/Vol]Orde red By: Millie Massey on 06-25-2024 Serum or plasma urea nitrogen measurement (mass/volume) 39 mg/dL High 7-18 [facility] Urine Cultureon 06-25-2024 URC Normal [facility] Comment on above: Performed By: #### M 100.2200, L400.0001 ####[facility] [address] [place], [place], [id number] White blood cell (WBC) count Ordered By: Millie Massey on 06-25-2024 WBC (Bld) [#/Vol] 4.4 10*3/uL 4.4-11.0 [facility] White blood cell (WBC) count 4.4 K/mm3 4.4-11.0 [facility] Absolute lymphocyte countOrd ered By: Millie Massey on 06-24-2024 Lymphocytes Auto (Unsp spec) [#/Vol] 0.73 10*3/uL Low 0.83-4.51 [facility] Absolute neutrophil countOrd ered By: Millie Massey on 06-24-2024 Absolute neutrophil count 3.9 X10^3/uL 2.0-7.7 [facility] Automated lymphocyte count a s percentage of total leukocytesOrdered By: Millie Massey on 06-24-2024 Lymphocytes/100 WBC Auto (Unsp spec) 13.7 % Low 19-41 [facility] Basic Metabolic Profile (BMP )on 06-24-2024 BUN/CRE 16.4 RATIO Normal 10-20 [facility] Comment on above: Order Comment: 103-1 Performed By: #### L 100.0100, L500.2500 ####[facility] [address] [place], [address] CA,Total 9.1 mg/dL Normal 8.5-10.1 [facility] Comment on above: Order Comment: 103-1 Performed By: #### L 100.0100, L500.2500 ####[facility] [address] [place], [address] Chloride [Moles/Vol] 104 mmol/L Normal 98-107 [facility] Comment on above: Order Comment: 103-1 Performed By: #### L 100.0100, L500.2500 ####[facility] [address] [place], [address] CO2 [Moles/Vol] 27.0 mmol/L Normal 21.0-32.0 [facility] Comment on above: Order Comment: 103-1 Performed By: #### L 100.0100, L500.2500 ####[facility] [address] [place], [address] Creatinine [Mass/Vol] 2.92 mg/dL High 0.55-1.[address] [facility] Comment on above: Order Comment: 103- Result Comment: The validity of the calculated GFR GFRAA in patients over70 years has not been determined. Clinical correlation isessential. Performed By: #### L 100.0100, L500.2500 ####[facility] [address] [place], [address] EST GFR - AA 21 mL/min Low >60 [facility] Comment on above: Order Comment: 103-1 Result Comment: Afri can [place] GFR Calc Performed By: #### L 100.0100, L500.2500 ####[facility] [address] [place], [address] GAP 5 Normal 5-15 [facility] Comment on above: Order Comment: 103-1 Performed By: #### L 100.0100, L500.2500 ####[facility] [address] [place], [address] GFR/1.73 sq M.predicted among non-blacks MDRD (S/P/Bld) [Vol rate/Area] 17 mL/min/{1.73_m2} Low >60 [facility] Comment on above: Order Comment: 103-1 Result Comment: Non- GFR Calc Performed By: #### L 100.0100, L500.2500 ####[facility] [address] [place], [address] Glucose [Mass/Vol] 71 mg/dL Low 74-106 [facility] Comment on above: Order Comment: 103-1 Performed By: #### L 100.0100, L500.2500 ####[facility] [address] [place], [address] Potassium [Moles/Vol] 5.6 mmol/L High 3.5-5.[address] [facility] Comment on above: Order Comment: 103-1 Performed By: #### L 100.0100, L500.2500 ####[facility] [address] [place], [address] Sodium [Moles/Vol] 137 mmol/L Normal 136-145 [facility] Comment on above: Order Comment: 103-1 Performed By: #### L 100.0100, L500.2500 ####[facility] [address] [place], [address] Urea nitrogen [Mass/Vol] 48 mg/dL High 7-18 [facility] Comment on above: Order Comment: 103-1 Performed By: #### L 100.0100, L500.2500 ####[facility] [address] [place], [address] Basophil percentageOrdered B y: Millie Massey on 06-24-2024 Basophils/100 WBC (Bld) 1.3 % High 0-1 [facility] Basophil percentage 1.3 % High 0-1 [facility] Blood urea nitrogen (BUN)/cr eatinine ratioOrdered By: Millie Massey on 06-24-2024 Blood urea nitrogen (BUN)/creatinine ratio 16.4 RATIO 10-20 [facility] CBC W/Diff, Automatedon 05-30 Absolute Lymph 0.73 X10 3/uL Low 0.83-4.51 [facility] Comment on above: Order Comment: 103-1 Performed By: #### L 100.0100, L500.2500 ####[facility] [address] [place], [address] Absolute Neut 3.9 X10 3/uL Normal 2.0-7.7 [facility] Comment on above: Order Comment: 103-1 Performed By: #### L 100.0100, L500.2500 ####[facility] [address] [place], [address] Basophils/100 WBC (Bld) 1.3 % High 0-1 [facility] Comment on above: Order Comment: 103-1 Performed By: #### L 100.0100, L500.2500 ####[facility] [address] [place], [address] Eosinophils/100 WBC (Bld) 2.6 % Normal 0-5 [facility] Comment on above: Order Comment: 103-1 Performed By: #### L 100.0100, L500.2500 ####[facility] [address] [place], [address] Erythrocyte distribution width (RBC) [Ratio] 15.9 % High 11.6-14.6 [facility] Comment on above: Order Comment: 103-1 Performed By: #### L 100.0100, L500.2500 ####[facility] [address] [place], [address] Hematocrit (Bld) [Volume fraction] 41.4 % Normal 37-47 [facility] Comment on above: Order Comment: 103-1 Performed By: #### L 100.0100, L500.2500 ####[facility] [address] [place], [address] Hemoglobin (Bld) [Mass/Vol] 12.8 g/dL Normal 12.0-15.0 [facility] Comment on above: Order Comment: 103-1 Performed By: #### L 100.0100, L500.2500 ####[facility] [address] [place], [address] IG% 2.100 High 0.0-0.9 [facility] Comment on above: Order Comment: 103-1 Result Comment: IG% - Immature Granulocytes (promyelocytes, myelocytes andmetamyelocytes) > 1% indicates that a LEFT SHIFT is Present. Performed By: #### L 100.0100, L500.2500 ####[facility] [address] [place], [address] Lymphocytes/100 WBC (Bld) 13.7 % Low 19-41 [facility] Comment on above: Order Comment: 103-1 Performed By: #### L 100.0100, L500.2500 ####[facility] [address] [place], [address] MCH (RBC) [Entitic mass] 27.9 pg Normal 27.0-32.0 [facility] Comment on above: Order Comment: 103-1 Performed By: #### L 100.0100, L500.2500 ####[facility] [address] [place], [address] MCHC (RBC) [Mass/Vol] 30.9 g/dL Low 32-[address] [facility] Comment on above: Order Comment: 103-1 Performed By: #### L 100.0100, L500.2500 ####[facility] [address] [place], [address] MCV (RBC) [Entitic vol] 90.2 fL Normal 81-99 [facility] Comment on above: Order Comment: 103-1 Performed By: #### L 100.0100, L500.2500 ####[facility] [address] [place], [address] Monocytes/100 WBC (Bld) 7.7 % Normal 0-10 [facility] Comment on above: Order Comment: 103-1 Performed By: #### L 100.0100, L500.2500 ####[facility] [address] [place], [address] Neutrophils/100 WBC (Bld) 72.6 % High 47-70 [facility] Comment on above: Order Comment: 103-1 Performed By: #### L 100.0100, L500.2500 ####[facility] [address] [place], [address] Nucleated RBC (Bld) [#/Vol] 0 10*3/uL Normal 0-5 [facility] Comment on above: Order Comment: 103-1 Performed By: #### L 100.0100, L500.2500 ####[facility] [address] [place], [address] Platelet mean volume (Bld) [Entitic vol] 10.0 fL Normal 6.2-12.0 [facility] Comment on above: Order Comment: 103-1 Performed By: #### L 100.0100, L500.2500 ####[facility] [address] [place], [address] Platelets (Bld) [#/Vol] 170 10*3/uL Normal 150-450 [facility] Comment on above: Order Comment: 103-1 Performed By: #### L 100.0100, L500.2500 ####[facility] [address], [address] RBC (Bld) [#/Vol] 4.59 10*6/uL Normal 4.2-5.4 [facility] Comment on above: Order Comment: 103-1 Performed By: #### L 100.0100, L500.2500 ####[facility] [address] [place], [address] RDW SD 52.3 fl High 35.1-43.9 [facility] Comment on above: Order Comment: 103-1 Performed By: #### L 100.0100, L500.2500 ####[facility] [address] [place], [address] WBC (Bld) [#/Vol] 5.3 10*3/uL Normal 4.4-11.0 [facility] Comment on above: Order Comment: 103-1 Performed By: #### L 100.0100, L500.2500 ####[facility] [address] [place], [address] Calcium [Mass/Vol]Ordered By : Millie Massey on 06-24-2024 Serum or plasma calcium measurement (mass/volume) 9.1 mg/dL 8.5-10.1 [facility] Carbon dioxide measurementOr dered By: Millie Massey on 06-24-2024 CO2 [Moles/Vol] 27.0 mmol/L 21.0-32.0 [facility] Carbon dioxide measurement 27.0 mmol/L 21.0-32.0 [facility] Chloride measurementOrdered By: Millie Massey on 06-24-2024 Chloride [Moles/Vol] 104 mmol/L 98-107 [facility] Chloride measurement 104 mmol/L 98-107 [facility] Creatinine [Mass/Vol]Ordered By: Millie Massey on 06-24-2024 Serum or plasma creatinine measurement (mass/volume) 2.92 mg/dL High 0.55-1.02 [facility] Eosinophil percentageOrdered By: Millie Masesy on 06-24-2024 Eosinophils/100 WBC (Bld) 2.6 % 0-5 [facility] Eosinophil percentage 2.6 % 0-[address] [facility] Erythrocyte distribution wid th (RBC) [Ratio]Ordered By: Millie Massey on 06-24-2024 Erythrocyte distribution width ratio 15.9 % High 11.6-14.6 [facility] Erythrocyte distribution wid th ratioOrdered By: Millie Massey on 06-24-2024 Erythrocyte distribution width (RBC) [Ratio] 15.9 % High 11.6-14.6 [facility] Erythrocyte distribution wid th standard deviationOrdered By: Millie Massey on 06-24-2024 Erythrocyte distribution width (RBC) [Ratio] 52.3 fl High 35.1-43.9 [facility] Erythrocyte distribution width standard deviation 52.3 fl High 35.1-43.9 [facility] Estimated glomerular filtrat ion rate (GFR) AmericanOrdered By: Millie Massey on 06-24-2024 Estimated glomerular filtration rate (GFR) 21 mL/min Low >60 [facility] Glomerular filtration rate ( GFR) estimationOrdered By: Millie Massey on 06-24-2024 GFR/1.73 sq M.predicted among non-blacks MDRD (S/P/Bld) [Vol rate/Area] 17 mL/min/{1.73_m2} Low >60 [facility] Glomerular filtration rate (GFR) estimation 17 mL/min Low >60 [facility] Glucose measurementOrdered B y: Millie Massey on 06-24-2024 Glucose [Mass/Vol] 71 mg/dL Low 74-106 [facility] Glucose measurement 71 mg/dL Low 74-106 [facility] Hematocrit Auto (Bld) [Volum e fraction]Ordered By: Millie Massey on 06-24-2024 Hematocrit (Bld) [Volume fraction] 41.4 % 37-47 [facility] Automated blood hematocrit (percentage) 41.4 % 37-47 [facility] Hemoglobin measurementOrdere d By: Millie Massey on 06-24-2024 Hemoglobin (Bld) [Mass/Vol] 12.8 g/dL 12.0-15.0 [facility] Hemoglobin measurement 12.8 g/dL 12.0-15.0 [facility] Immature granulocytes/100 WB C Auto (Bld)Ordered By: Millie Massey on 06-24-2024 Immature granulocytes/100 WBC (Bld) 2.100 % High 0.0-0.9 [facility] Automated immature granulocyte percentage 2.100 % High 0.0-0.9 [facility] Lymphocytes Auto (Unsp spec) [#/Vol]Ordered By: Millie Massey on 06-24-2024 Absolute lymphocyte count 0.73 X10^3/uL Low 0.83-4.51 [facility] Lymphocytes/100 WBC Auto (Un sp spec)Ordered By: Millie Massey on 06-24-2024 Automated lymphocyte count as percentage of total leukocytes 13.7 % Low 19-41 [facility] MCV (RBC) [Entitic vol]Order ed By: Millie Massey on 06-24-2024 MCV (mean corpuscular volume) determination 90.2 fL 81-99 [facility] MCV (mean corpuscular volume ) determinationOrdered By: Millie Massey on 06-24-2024 MCV (RBC) [Entitic vol] 90.2 fL 81-99 [facility] Mean corpuscular hemoglobin (MCH) determinationOrdered By: Millie Massey on 06-24-2024 MCH (RBC) [Entitic mass] 27.9 pg 27.0-32.0 [facility] Mean corpuscular hemoglobin (MCH) determination 27.9 pg 27.0-32.0 [facility] Mean corpuscular hemoglobin concentration (MCHC) determinationOrdered By: Millie Massey on 06-24-2024 Mean corpuscular hemoglobin concentration (MCHC) determination 30.9 g/dL Low 32-36 [facility] Mean platelet volume determi nationOrdered By: Millie Massey on 06-24-2024 Mean platelet volume determination 10.0 fl 6.2-12.0 [facility] Monocyte percentageOrdered B y: Millie Massey on 06-24-2024 Monocytes/100 WBC (Bld) 7.7 % 0-10 [facility] Monocyte percentage 7.7 % 0-10 [facility] Neutrophil percentageOrdered By: Millie Massey on 06-24-2024 Neutrophils/100 WBC (Bld) 72.6 % High 47-70 [facility] Neutrophil percentage 72.6 % High 47-[address] [facility] Nucleated red blood cell per centageOrdered By: Millie Massey on 06-24-2024 Nucleated red blood cell percentage 0 % 0-5 [facility] Platelet countOrdered By: Carter Massey on 06-24-2024 Platelets (Bld) [#/Vol] 170 10*3/uL 150-450 [facility] Platelet count 170 K/mm3 150-450 [facility] Potassium measurementOrdered By: Millie Massey on 06-24-2024 Potassium [Moles/Vol] 5.6 mmol/L High 3.5-5.[address] [facility] Potassium measurement 5.6 mmol/L High 3.5-5.[address] [facility] RBC Auto (Bld) [#/Vol]Ordere d By: Millie Massey on 06-24-2024 RBC (Bld) [#/Vol] 4.59 10*6/uL 4.2-5.4 [facility] Automated blood erythrocyte count 4.59 M/mm3 4.2-5.4 [facility] Serum anion gap measurementO rdered By: Millie Massey on 06-24-2024 Serum anion gap measurement 5 5-15 [facility] Serum or plasma calcium megan urement (mass/volume)Ordered By: Millie Massey on 06-24-2024 Calcium [Mass/Vol] 9.1 mg/dL 8.5-10.1 [facility] Serum or plasma creatinine m easurement (mass/volume)Ordered By: Millie Massey on 06-24-2024 Creatinine [Mass/Vol] 2.92 mg/dL High 0.55-1.[address] [facility] Serum or plasma urea nitroge n measurement (mass/volume)Ordered By: Millie Massey on 06-24-2024 Urea nitrogen [Mass/Vol] 48 mg/dL High 7-18 [facility] Sodium levelOrdered By: Silavna Massey on 06-24-2024 Sodium [Moles/Vol] 137 mmol/L 136-145 [facility] Sodium level 137 mmol/L 136-145 [facility] Urea nitrogen [Mass/Vol]Orde red By: Millie Massey on 06-24-2024 Serum or plasma urea nitrogen measurement (mass/volume) 48 mg/dL High 7-18 [facility] White blood cell (WBC) count Ordered By: Millie Massey on 06-24-2024 WBC (Bld) [#/Vol] 5.3 10*3/uL 4.4-11.0 [facility] White blood cell (WBC) count 5.3 K/mm3 4.4-11.0 [facility] Urinalysis, Completeon 06-22 BACTERIA 4+ /hpf Normal None Seen [facility] Comment on above: Order Comment: Urine , Random Performed By: #### M 100.2200, L400.0001 ####[facility] [address] [place], [address] CA OX CRYSTAL 1+ /hpf Normal [facility] Comment on above: Order Comment: Urine , Random Performed By: #### M 100.2200, L400.0001 ####[facility] [address] [place], [address] EPI,SQUAMOUS 0-5 SEEN Normal 5-10 [facility] Comment on above: Order Comment: Urine , Random Performed By: #### M 100.2200, L400.0001 ####[facility] [address] [place], [address] WBC >100 SEEN Normal 0-5 [facility] Comment on above: Order Comment: Urine , Random Performed By: #### M 100.2200, L400.0001 ####[facility] [address] [place], [address] Mucus Ql (Urine sed) 0 SEEN Normal [facility] Comment on above: Order Comment: Urine , Random Performed By: #### M 100.2200, L400.0001 ####[facility] [address] [place], [address] RBC 0 SEEN Normal 0-5 [facility] Comment on above: Order Comment: Urine , Random Performed By: #### M 100.2200, L400.0001 ####[facility] [address] [place], [place], [address] Bacteria LM.HPF (Urine sed) [#/Area]Ordered By: Millie Massey on 06-21-2024 Urine sediment bacteria count by microscopy (number/high power field) 4+ /hpf None Seen [facility] Bilirubin Test strip Ql (U)O rdered By: Millie Massey on 06-21-2024 Bilirubin Ql (U) Negative Negative [facility] Calcium oxalate crystals LM Ql (Urine sed)Ordered By: Millie Massey on 06-21-2024 Calcium oxalate crystals detection in urine sediment by light microscopy 1+ /hpf [facility] Calcium oxalate crystals det ection in urine sediment by light microscopyOrdered By: Millie Massey on 06-21-2024 Calcium oxalate crystals LM Ql (Urine sed) 1+ /hpf [facility] Clarity (U)Ordered By: Krystle Massey on 06-21-2024 Urine clarity Turbid Clear [facility] Color (U)Ordered By: Millie Massey on 06-21-2024 Urine color determination Yellow Yellow [facility] Epithelial cells.squamous LM Ql (Urine sed)Ordered By: Millie Massey on 06-21-2024 Squamous epithelial cells detection in urine sediment by light microscopy 0-5 SEEN /hpf 5-10 [facility] Ketones Test strip Ql (U)Ord ered By: Millie Massey on 06-21-2024 Ketones Ql (U) Negative Negative [facility] Leukocyte esterase Test stri p Ql (U)Ordered By: Millie Massey on 06-21-2024 Urine leukocyte esterase detection by dipstick 500 /ul High Negative [facility] Microscopic analysis of urin e for red blood cells (RBC)Ordered By: Millie Massey on 06-21-2024 Microscopic analysis of urine for red blood cells (RBC) 0 SEEN /hpf [facility] Mucus LM Ql (Urine sed)Order ed By: Millie Massey on 06-21-2024 Mucus Ql (Urine sed) 0 SEEN /hpf [facility] Nitrite Test strip Ql (U)Ord ered By: Millie Massey on 06-21-2024 Nitrite Ql (U) Negative Negative [facility] Protein Test strip Ql (U)Ord ered By: Millie Massey on 06-21-2024 Protein Ql (U) 100 mg/dl High Negative [facility] Urine protein assay by test strip, semi-quantitative 100 mg/dl High Negative [facility] Specific gravity (U) [Rel de nsity]Ordered By: Millie Massey on 06-21-2024 Urine specific gravity measurement 1.010 1.002-1.03 0 [facility] Squamous epithelial cells de tection in urine sediment by light microscopyOrdered By: Millie Massey on 06-21-2024 Epithelial cells.squamous LM Ql (Urine sed) 0-5 SEEN /hpf 5-10 [facility] Urine blood detectionOrdered By: Millie Massey on 06-21-2024 Urine blood detection 50 /ul High Negative [facility] Urine clarityOrdered By: Lesli Massey on 06-21-2024 Clarity (U) Turbid Clear [facility] Urine color determinationOrd ered By: Millie Massey on 06-21-2024 Color (U) Yellow Yellow [facility] Urine cultureOrdered By: Lesli Massey on 06-21-2024 Bacteria identified Cx Nom (U) Klebsiella oxytoca Abnormal [facility] Bacteria identified Cx Nom (U) Serratia ficaria Abnormal [facility] Urine culture Klebsiella oxytoca Abnormal [facility] Urine culture Serratia ficaria Abnormal [facility] Urine glucose detectionOrder ed By: Millie Massey on 06-21-2024 Glucose Ql (U) Normal mg/dl Normal [facility] Urine glucose detection Normal mg/dl Normal [facility] Urine leukocyte esterase det ection by dipstickOrdered By: Millie Massey on 06-21-2024 Leukocyte esterase Test strip Ql (U) 500 /ul High Negative [facility] Urine pHOrdered By: Millie roman on 06-21-2024 pH (U) 8.0 [pH] 5.0 - 8.0 [facility] Urine sediment bacteria coun t by microscopy (number/high power field)Ordered By: Millie Massey on 06-21-2024 Bacteria LM.HPF (Urine sed) [#/Area] 4 /[HPF] None Seen [facility] Urine specific gravity measu rementOrdered By: Millie Massey on 06-21-2024 Specific gravity (U) [Rel density] 1.010 1.002-1.03 0 [facility] Urine total bilirubin detect ion by test stripOrdered By: Millie Massey on 06-21-2024 Urine total bilirubin detection by test strip Negative Negative [facility] Urine urobilinogen measureme ntOrdered By: Millie Massey on 06-21-2024 Urobilinogen Ql (U) Normal mg/dl Normal [facility] White blood cell countOrdere d By: Millie Massey on 06-21-2024 White blood cell count >100 SEEN /hpf 0-5 [facility] White blood cell count >100 SEEN /hpf 0-5 [facility] pH (U)Ordered By: Millie little on 06-21-2024 Urine pH 8.0 5.0 - 8.0 [facility] Basic Metabolic Profile (BMP )on 06-07-2024 BUN/CRE 12.1 RATIO Normal 10-20 [facility] Comment on above: Order Comment: 103- Performed By: #### L 500.2500 ####[facility] [address] [facility] [address] CA,Total 8.6 mg/dL Normal 8.5-10.1 [facility] Comment on above: Order Comment: 103-1 Performed By: #### L 500.2500 ####[facility] [address] [facility] [address] Chloride [Moles/Vol] 107 mmol/L Normal 98-107 [facility] Comment on above: Order Comment: 103- Performed By: #### L 500.2500 ####[facility] [address] [place], [address] CO2 [Moles/Vol] 22.0 mmol/L Normal 21.0-32.0 [facility] Comment on above: Order Comment: 103- Performed By: #### L 500.2500 ####[facility] [address] [place], [address] Creatinine [Mass/Vol] 2.65 mg/dL High 0.55-1.[address] [facility] Comment on above: Order Comment: 103- Result Comment: The validity of the calculated GFR GFRAA in patients over70 years has not been determined. Clinical correlation isessential. Performed By: #### L 500.2500 ####[facility] [address] [place], [address] EST GFR - AA 24 mL/min Low >60 [facility] Comment on above: Order Comment: 103- Result Comment: Afri can [place] GFR Calc Performed By: #### L 500.2500 ####[facility] [address] [place], [address] GAP 6 Normal 5-15 [facility] Comment on above: Order Comment: 103- Performed By: #### L 500.2500 ####[facility] [address] [place], [address] GFR/1.73 sq M.predicted among non-blacks MDRD (S/P/Bld) [Vol rate/Area] 19 mL/min/{1.73_m2} Low >60 [facility] Comment on above: Order Comment: 103- Result Comment: Non- GFR Calc Performed By: #### L 500.2500 ####[facility] [address] [place], [address] Glucose [Mass/Vol] 77 mg/dL Normal 74-106 [facility] Comment on above: Order Comment: 103- Performed By: #### L 500.2500 ####[facility] [address] [place], [place], [address] Potassium [Moles/Vol] 5.3 mmol/L High 3.5-5.[address] [facility] Comment on above: Order Comment: 103-1 Result Comment: Mode rate Hemolysis, Result may be falsely increased. Performed By: #### L 500.2500 ####[facility] [address] [place], [place], [phone] Sodium [Moles/Vol] 134 mmol/L Low 136-145 [facility] Comment on above: Order Comment: 103-1 Performed By: #### L 500.2500 ####[facility] [address] [place], [place], [address] Urea nitrogen [Mass/Vol] 32 mg/dL High 7-18 [facility] Comment on above: Order Comment: 103-1 Performed By: #### L 500.2500 ####[facility] [address] [place], [place], [address] Blood urea nitrogen (BUN)/cr eatinine ratioOrdered By: Millie Massey on 06-07-2024 Blood urea nitrogen (BUN)/creatinine ratio 12.1 RATIO 10-20 [facility] Calcium [Mass/Vol]Ordered By : Millie Massey on 06-07-2024 Serum or plasma calcium measurement (mass/volume) 8.6 mg/dL 8.5-10.1 [facility] Carbon dioxide measurementOr dered By: Millie Massey on 06-07-2024 Carbon dioxide measurement 22.0 mmol/L 21.0-32.0 [facility] Chloride measurementOrdered By: Millie Massey on 06-07-2024 Chloride measurement 107 mmol/L 98-107 [facility] Creatinine [Mass/Vol]Ordered By: Millie Massey on 06-07-2024 Serum or plasma creatinine measurement (mass/volume) 2.65 mg/dL High 0.55-1.02 [facility] Estimated glomerular filtrat ion rate (GFR) AmericanOrdered By: Millie Massey on 06-07-2024 Estimated glomerular filtration rate (GFR) 24 mL/min Low >60 [facility] Glomerular filtration rate ( GFR) estimationOrdered By: Millie Massey on 06-07-2024 Glomerular filtration rate (GFR) estimation 19 mL/min Low >60 [facility] Glucose measurementOrdered B y: Millie Massey on 06-07-2024 Glucose measurement 77 mg/dL 74-106 [facility] Potassium measurementOrdered By: Millie Massey on 06-07-2024 Potassium measurement 5.3 mmol/L High 3.5-5.[address] [facility] Serum anion gap measurementO rdered By: Millie Massey on 06-07-2024 Serum anion gap measurement 6 5-15 [facility] Sodium levelOrdered By: Silvana Massey on 06-07-2024 Sodium level 134 mmol/L Low 136-145 [facility] Urea nitrogen [Mass/Vol]Orde red By: Millie Massey on 06-07-2024 Serum or plasma urea nitrogen measurement (mass/volume) 32 mg/dL High 7-18 [facility] Basic Metabolic Profile (BMP )on 06-06-2024 BUN/CRE 11.9 RATIO Normal 10-20 [facility] Comment on above: Performed By: #### L 500.2500 ####[facility] [address] [place], [address] CA,Total 8.5 mg/dL Normal 8.5-10.1 [facility] Comment on above: Performed By: #### L 500.2500 ####[facility] [address] [place], [address] Chloride [Moles/Vol] 104 mmol/L Normal 98-107 [facility] Comment on above: Performed By: #### L 500.2500 ####[facility] [address] [place], [address] CO2 [Moles/Vol] 25.0 mmol/L Normal 21.0-32.0 [facility] Comment on above: Performed By: #### L 500.2500 ####[facility] [address] [place], [address] Creatinine [Mass/Vol] 2.53 mg/dL High 0.55-1.[address] [facility] Comment on above: Result Comment: The validity of the calculated GFR GFRAA in patients over70 years has not been determined. Clinical correlation isessential. Performed By: #### L 500.2500 ####[facility] [address] [place], [address] EST GFR - AA 25 mL/min Low >60 [facility] Comment on above: Result Comment: Afri can [place] GFR Calc Performed By: #### L 500.2500 ####[facility] [address] [place], [address] GAP 5 Normal 5-15 [facility] Comment on above: Performed By: #### L 500.2500 ####[facility] [address] [place], [address] GFR/1.73 sq M.predicted among non-blacks MDRD (S/P/Bld) [Vol rate/Area] 21 mL/min/{1.73_m2} Low >60 [facility] Comment on above: Result Comment: Non- GFR Calc Performed By: #### L 500.2500 ####[facility] [address] [place], [address] Glucose [Mass/Vol] 79 mg/dL Normal 74-106 [facility] Comment on above: Performed By: #### L 500.2500 ####[facility] [address] [place], [address] Potassium [Moles/Vol] 5.0 mmol/L Normal 3.5-5.[address] [facility] Comment on above: Performed By: #### L 500.2500 ####[facility] [address] [place], [address] Sodium [Moles/Vol] 134 mmol/L Low 136-145 [facility] Comment on above: Performed By: #### L 500.2500 ####[facility] [address] [place], [place], [address] Urea nitrogen [Mass/Vol] 30 mg/dL High 7-18 [facility] Comment on above: Performed By: #### L 500.2500 ####[facility] [address] [place], [place], [address] Blood urea nitrogen (BUN)/cr eatinine ratioOrdered By: Millie Massey on 06-06-2024 Blood urea nitrogen (BUN)/creatinine ratio 11.9 RATIO 10-20 [facility] Calcium [Mass/Vol]Ordered By : Millie Massey on 06-06-2024 Serum or plasma calcium measurement (mass/volume) 8.5 mg/dL 8.5-10.1 [facility] Carbon dioxide measurementOr dered By: Millie Massey on 06-06-2024 Carbon dioxide measurement 25.0 mmol/L 21.0-32.0 [facility] Chloride measurementOrdered By: Millie Massey on 06-06-2024 Chloride measurement 104 mmol/L 98-107 [facility] Creatinine [Mass/Vol]Ordered By: Millie Massey on 06-06-2024 Serum or plasma creatinine measurement (mass/volume) 2.53 mg/dL High 0.55-1.02 [facility] Estimated glomerular filtrat ion rate (GFR) AmericanOrdered By: Millie Massey on 06-06-2024 Estimated glomerular filtration rate (GFR) 25 mL/min Low >60 [facility] Glomerular filtration rate ( GFR) estimationOrdered By: Millie Massey on 06-06-2024 Glomerular filtration rate (GFR) estimation 21 mL/min Low >60 [facility] Glucose measurementOrdered B y: Millie Massey on 06-06-2024 Glucose measurement 79 mg/dL 74-106 [facility] Potassium measurementOrdered By: Millie Massey on 06-06-2024 Potassium measurement 5.0 mmol/L 3.5-5.[address] [facility] Serum anion gap measurementO rdered By: Millie Massey on 06-06-2024 Serum anion gap measurement 5 5-15 [facility] Sodium levelOrdered By: Silvana Massey on 06-06-2024 Sodium level 134 mmol/L Low 136-145 [facility] Urea nitrogen [Mass/Vol]Orde red By: Millie Massey on 06-06-2024 Serum or plasma urea nitrogen measurement (mass/volume) 30 mg/dL High 7-18 [facility] MR/BMS.BVSon 06-05-2024 MR/BMS.BVS Normal [facility] Absolute neutrophil countOrd ered By: Millie Massey on 06-03-2024 Absolute neutrophil count 4.5 X10^3/uL 2.0-7.7 [facility] Basic Metabolic Profile (BMP )on 06-03-2024 BUN/CRE 14.6 RATIO Normal 10-20 [facility] Comment on above: Order Comment: 103.1 Performed By: #### L 100.0100, L500.2500, L501.6710 ####[facility] [address] [place], [address] CA,Total 8.7 mg/dL Normal 8.5-10.1 [facility] Comment on above: Order Comment: 103.1 Performed By: #### L 100.0100, L500.2500, [id number] ####[facility] [address] [place], [address] Chloride [Moles/Vol] 102 mmol/L Normal 98-107 [facility] Comment on above: Order Comment: 103.1 Performed By: #### L 100.0100, L500.2500, [id number] ####[facility] [address] [place], [address] CO2 [Moles/Vol] 24.0 mmol/L Normal 21.0-32.0 [facility] Comment on above: Order Comment: 103.1 Performed By: #### L 100.0100, L500.2500, [id number] ####[facility] [address] [place], [address] Creatinine [Mass/Vol] 2.40 mg/dL High 0.55-1.[address] [facility] Comment on above: Order Comment: 103.1 Result Comment: The validity of the calculated GFR GFRAA in patients over70 years has not been determined. Clinical correlation isessential. Performed By: #### L 100.0100, L500.2500, L501.6710 ####[facility] [address] [place], [address] EST GFR - AA 26 mL/min Low >60 [facility] Comment on above: Order Comment: 103.1 Result Comment: Afri can [place] GFR Calc Performed By: #### L 100.0100, L500.2500, [id number] ####[facility] [address] [place], [address] GAP 6 Normal 5-15 [facility] Comment on above: Order Comment: 103.1 Performed By: #### L 100.0100, L500.2500, [id number] ####[facility] [address] [place], [address] GFR/1.73 sq M.predicted among non-blacks MDRD (S/P/Bld) [Vol rate/Area] 22 mL/min/{1.73_m2} Low >60 [facility] Comment on above: Order Comment: 103.1 Result Comment: Non- GFR Calc Performed By: #### L 100.0100, L500.2500, [id number] ####[facility] [address] [place], [address] Glucose [Mass/Vol] 87 mg/dL Normal 74-106 [facility] Comment on above: Order Comment: 103.1 Performed By: #### L 100.0100, L500.2500, L501.6710 ####[facility] [facility] [address] [place], [address] Potassium [Moles/Vol] 5.3 mmol/L High 3.5-5.[address] [facility] Comment on above: Order Comment: 103.1 Performed By: #### L 100.0100, L500.2500, L501.6710 ####[facility] [address] [place], [address] Sodium [Moles/Vol] 132 mmol/L Low 136-145 [facility] Comment on above: Order Comment: 103.1 Performed By: #### L 100.0100, L500.2500, L501.6710 ####[facility] [address] [place], [address] Urea nitrogen [Mass/Vol] 35 mg/dL High 7-18 [facility] Comment on above: Order Comment: 103.1 Performed By: #### L 100.0100, L500.2500, L501.6710 ####[facility] [address] [place], [address] Blood urea nitrogen (BUN)/cr eatinine ratioOrdered By: Millie Massey on 06-03-2024 Blood urea nitrogen (BUN)/creatinine ratio 14.6 RATIO 10-20 [facility] C-reactive protein measureme nt by high sensitivity methodOrdered By: Millie Massey on 06-03-2024 C-reactive protein measurement by high sensitivity method 15.60 mg/L High 0.0-3.0 [facility] CBC W/Diff, Automatedon Absolute Lymph 0.75 X10 3/uL Low 0.83-4.51 [facility] Comment on above: Order Comment: 103.1 Performed By: #### L 100.0100, L500.2500, L501.6710 ####[facility] [address] [place], [address] Absolute Neut 4.5 X10 3/uL Normal 2.0-7.7 [facility] Comment on above: Order Comment: 103.1 Performed By: #### L 100.0100, L500.2500, L501.6710 ####[facility] [address] [place], [address] Basophils/100 WBC (Bld) 1.0 % Normal 0-1 [facility] Comment on above: Order Comment: 103.1 Performed By: #### L 100.0100, L500.2500, L501.6710 ####[facility] [address] [place], [address] Eosinophils/100 WBC (Bld) 1.0 % Normal 0-5 [facility] Comment on above: Order Comment: 103.1 Performed By: #### L 100.0100, L500.2500, L501.6710 ####[facility] [address] [place], [address] Erythrocyte distribution width (RBC) [Ratio] 15.7 % High 11.6-14.6 [facility] Comment on above: Order Comment: 103.1 Performed By: #### L 100.0100, L500.2500, L501.6710 ####[facility] [address] [place], [address] Hematocrit (Bld) [Volume fraction] 38.9 % Normal 37-47 [facility] Comment on above: Order Comment: 103.1 Performed By: #### L 100.0100, L500.2500, L501.6710 ####[facility] [address] [place], [address] Hemoglobin (Bld) [Mass/Vol] 11.8 g/dL Low 12.0-15.0 [facility] Comment on above: Order Comment: 103.1 Performed By: #### L 100.0100, L500.2500, L501.6710 ####[facility] [address] [place], [address] IG% 0.800 Normal 0.0-0.9 [facility] Comment on above: Order Comment: 103.1 Result Comment: IG% - Immature Granulocytes (promyelocytes, myelocytes andmetamyelocytes) > 1% indicates that a LEFT SHIFT is Present. Performed By: #### L 100.0100, L500.2500, L501.6710 ####[facility] [address] [place], [address] Lymphocytes/100 WBC (Bld) 12.4 % Low 19-41 [facility] Comment on above: Order Comment: 103.1 Performed By: #### L 100.0100, L500.2500, L501.6710 ####[facility] [address] [place], [address] MCH (RBC) [Entitic mass] 28.4 pg Normal 27.0-32.0 [facility] Comment on above: Order Comment: 103.1 Performed By: #### L 100.0100, L500.2500, L501.6710 ####[facility] [address] [place], [address] MCHC (RBC) [Mass/Vol] 30.3 g/dL Low 32-[address] [facility] Comment on above: Order Comment: 103.1 Performed By: #### L 100.0100, L500.2500, L501.6710 ####[facility] [address] [place], [address] MCV (RBC) [Entitic vol] 93.5 fL Normal 81-99 [facility] Comment on above: Order Comment: 103.1 Performed By: #### L 100.0100, L500.2500, L501.6710 ####[facility] [address] [place], [address] Monocytes/100 WBC (Bld) 9.9 % Normal 0-10 [facility] Comment on above: Order Comment: 103.1 Performed By: #### L 100.0100, L500.2500, L501.6710 ####[facility] [address] [place], [address] Neutrophils/100 WBC (Bld) 74.9 % High 47-70 [facility] Comment on above: Order Comment: 103.1 Performed By: #### L 100.0100, L500.2500, L501.6710 ####[facility] [address] [place], [address] Nucleated RBC (Bld) [#/Vol] 0 10*3/uL Normal 0-5 [facility] Comment on above: Order Comment: 103.1 Performed By: #### L 100.0100, L500.2500, L501.6710 ####[facility] [address] [place], [address] Platelet mean volume (Bld) [Entitic vol] 9.9 fL Normal 6.2-12.0 [facility] Comment on above: Order Comment: 103.1 Performed By: #### L 100.0100, L500.2500, L501.6710 ####[facility] [address] [place], [address] Platelets (Bld) [#/Vol] 196 10*3/uL Normal 150-450 [facility] Comment on above: Order Comment: 103.1 Performed By: #### L 100.0100, L500.2500, L501.6710 ####[facility] [address] [place], [address] RBC (Bld) [#/Vol] 4.16 10*6/uL Low 4.2-5.4 [facility] Comment on above: Order Comment: 103.1 Performed By: #### L 100.0100, L500.2500, L501.6710 ####[facility] [address] [place], [address] RDW SD 54.4 fl High 35.1-43.9 [facility] Comment on above: Order Comment: 103.1 Performed By: #### L 100.0100, L500.2500, L501.6710 ####[facility] [address] [place], [address] WBC (Bld) [#/Vol] 6.1 10*3/uL Normal 4.4-11.0 [facility] Comment on above: Order Comment: 103.1 Performed By: #### L 100.0100, L500.2500, L501.6710 ####[facility] [address] [place], [address] CRPon 06-03-2024 C-REACTIVE PROT 15.60 mg/L High 0.0-3.0 [facility] Comment on above: Order Comment: 103.1 Result Comment: C-Re active Protein (CRP) provides useful information for thediagnosis, therapy and monitoring of inflammatory processesand associated diseases. For the evaluation of Relative Riskfor Cardiovascular Disease, a High Sensitivity CRP (HSCRP)should be ordered. Performed By: #### L 100.0100, L500.2500, L501.6710 ####[facility] [address] [place], [address] Calcium [Mass/Vol]Ordered By : Millie Massey on 06-03-2024 Serum or plasma calcium measurement (mass/volume) 8.7 mg/dL 8.5-10.1 [facility] Carbon dioxide measurementOr dered By: Millie Massey on 06-03-2024 Carbon dioxide measurement 24.0 mmol/L 21.0-32.0 [facility] Chloride measurementOrdered By: Millie Massey on 06-03-2024 Chloride measurement 102 mmol/L 98-107 [facility] Creatinine [Mass/Vol]Ordered By: Millie Massey on 06-03-2024 Serum or plasma creatinine measurement (mass/volume) 2.40 mg/dL High 0.55-1.02 [facility] Eosinophil percentageOrdered By: Millie Massey on 06-03-2024 Eosinophil percentage 1.0 % 0-[address] [facility] Erythrocyte distribution wid th (RBC) [Ratio]Ordered By: Millie Massey on 06-03-2024 Erythrocyte distribution width ratio 15.7 % High 11.6-14.6 [facility] Erythrocyte distribution wid th standard deviationOrdered By: Millie Massey on 06-03-2024 Erythrocyte distribution width standard deviation 54.4 fl High 35.1-43.9 [facility] Estimated glomerular filtrat ion rate (GFR) AmericanOrdered By: Millie Massey on 06-03-2024 Estimated glomerular filtration rate (GFR) 26 mL/min Low >60 [facility] Glomerular filtration rate ( GFR) estimationOrdered By: Millie Massey on 06-03-2024 Glomerular filtration rate (GFR) estimation 22 mL/min Low >60 [facility] Glucose measurementOrdered B y: Millie Massey on 06-03-2024 Glucose measurement 87 mg/dL 74-106 [facility] Hematocrit Auto (Bld) [Volum e fraction]Ordered By: Millie Massey on 06-03-2024 Automated blood hematocrit (percentage) 38.9 % 37-47 [facility] Hemoglobin measurementOrdere d By: Millie Massey on 06-03-2024 Hemoglobin measurement 11.8 g/dL Low 12.0-15.0 [facility] Immature granulocytes/100 WB C Auto (Bld)Ordered By: Millie Massey on 06-03-2024 Automated immature granulocyte percentage 0.800 % 0.0-0.9 [facility] Lymphocytes Auto (Unsp spec) [#/Vol]Ordered By: Millie Massey on 06-03-2024 Absolute lymphocyte count 0.75 X10^3/uL Low 0.83-4.51 [facility] Lymphocytes/100 WBC Auto (Un sp spec)Ordered By: Millie Massey on 06-03-2024 Automated lymphocyte count as percentage of total leukocytes 12.4 % Low 19-41 [facility] MCV (RBC) [Entitic vol]Order ed By: Millie Massey on 06-03-2024 MCV (mean corpuscular volume) determination 93.5 fL 81-99 [facility] Mean corpuscular hemoglobin (MCH) determinationOrdered By: Millie Massey on 06-03-2024 Mean corpuscular hemoglobin (MCH) determination 28.4 pg 27.0-32.0 [facility] Mean corpuscular hemoglobin concentration (MCHC) determinationOrdered By: Millie Massey on 06-03-2024 Mean corpuscular hemoglobin concentration (MCHC) determination 30.3 g/dL Low 32-36 [facility] Mean platelet volume determi nationOrdered By: Millie Massey on 06-03-2024 Mean platelet volume determination 9.9 fl 6.2-12.0 [facility] Monocyte percentageOrdered B y: Millie Massey on 06-03-2024 Monocyte percentage 9.9 % 0-10 [facility] Neutrophil percentageOrdered By: Millie Massey on 06-03-2024 Neutrophil percentage 74.9 % High 47-[address] [facility] Nucleated red blood cell per centageOrdered By: Millie Massey on 06-03-2024 Nucleated red blood cell percentage 0 % 0-5 [facility] Platelet countOrdered By: Carter Massey on 06-03-2024 Platelet count 196 K/mm3 150-450 [facility] Potassium measurementOrdered By: Millie Massey on 06-03-2024 Potassium measurement 5.3 mmol/L High 3.5-5.[address] [facility] RBC Auto (Bld) [#/Vol]Ordere d By: Millie Masesy on 06-03-2024 Automated blood erythrocyte count 4.16 M/mm3 Low 4.2-5.4 [facility] Serum anion gap measurementO rdered By: Millie Massey on 06-03-2024 Serum anion gap measurement 6 5-15 [facility] Sodium levelOrdered By: Silvana Massey on 06-03-2024 Sodium level 132 mmol/L Low 136-145 [facility] Urea nitrogen [Mass/Vol]Orde red By: Millie Massey on 06-03-2024 Serum or plasma urea nitrogen measurement (mass/volume) 35 mg/dL High 7-18 [facility] White blood cell (WBC) count Ordered By: Millie Massey on 06-03-2024 White blood cell (WBC) count 6.1 K/mm3 4.4-11.0 [facility] Miscellaneous Lab Procedureo n 05-30-2024 MIS LAB TEST Normal [facility] Comment on above: Order Comment: [id number] Result Comment: TEST RESULTS LIMITSHemoglobin A1c <4.2 Low % 4.8-5.6 Verified by repeat analysis Please Note: Prediabetes: 5.7 - 6.4 Diabetes: >6.4 Glycemic control for adults with diabetes: <7.0 TESTING PERFORMED AT [facility]. ORIGINAL REPORT ON FILE IN LAB CONTAINS ADDITIONAL TEST SITE INFORMATION. Performed By: #### L 801.1541 ####[facility] [address] [place], [place], [id number] Prealbumin [id number] Prealbumin [Mass/Vol] 10 mg/dL Normal 10-[address] [facility] Comment on above: Order Comment: 103.1 Result Comment: Perf ormed at: [facility] [id number] Director: Manjinder Babb PhD, Phone: [phone] Performed By: #### L 235.9926, D944.54441, L501.7580, L3300.3980, L500.4050, L100.0100, L501.0810 ####[facility] [address] [place], [place], [id number] ALP [Catalytic activity/Vol] Ordered By: Millie Massey on 05-27-2024 Serum or plasma alkaline phosphatase measurement 65 U/L 45-117 [facility] ALT [Catalytic activity/Vol] Ordered By: Millie Massey on 05-27-2024 Serum or plasma alanine aminotransferase (ALT) measurement 10 U/L Low 13-56 [facility] Absolute neutrophil countOrd ered By: Millie Massey on 05-27-2024 Absolute neutrophil count 3.6 X10^3/uL 2.0-7.7 [facility] Albumin [Mass/Vol]Ordered By : Millie Massey on 05-27-2024 Serum or plasma albumin measurement (mass/volume) 1.8 g/dL Low 3.2-5.0 [facility] Albumin to globulin ratioOrd ered By: Millie Massey on 05-27-2024 Albumin to globulin ratio 0.4 RATIO Low 0.9-2.4 [facility] Basophil percentageOrdered B y: Millie Massey on 05-27-2024 Basophil percentage 0.8 % 0-1 [facility] Bilirubin, totalOrdered By: Millie Massey on 05-27-2024 Bilirubin, total 0.40 mg/dL 0.20-1.00 [facility] Blood urea nitrogen (BUN)/cr eatinine ratioOrdered By: Millieblanche Massey on 05-27-2024 Blood urea nitrogen (BUN)/creatinine ratio 15.6 RATIO 10-20 [facility] CBC W/Diff, Automatedon 04-30 Absolute Lymph 0.62 X10 3/uL Low 0.83-4.51 [facility] Comment on above: Order Comment: 103.1 Performed By: #### L 501.9520, L501.71438, L501.5200, L3300.6400, L500.4050, L100.0100, L501.9310 ####[facility] [address] [place], [place], [address] Absolute Neut 3.6 X10 3/uL Normal 2.0-7.7 [facility] Comment on above: Order Comment: 103.1 Performed By: #### L 501.9520, L501.03240, L501.5200, L3300.6400, L500.4050, L100.0100, L501.9310 ####[facility] [address] [place], [address] Basophils/100 WBC (Bld) 0.8 % Normal 0-1 [facility] Comment on above: Order Comment: 103.1 Performed By: #### L 501.9520, L501.93388, L501.5200, L3300.6400, L500.4050, L100.0100, L501.9310 ####[facility] [address] [place], [address] Eosinophils/100 WBC (Bld) 2.3 % Normal 0-5 [facility] Comment on above: Order Comment: 103.1 Performed By: #### L 501.9520, L501.96597, L501.5200, L3300.6400, L500.4050, L100.0100, L501.9310 ####[facility] [address] [place], [address] Erythrocyte distribution width (RBC) [Ratio] 17.2 % High 11.6-14.6 [facility] Comment on above: Order Comment: 103.1 Performed By: #### L 501.9520, L501.96119, L501.5200, L3300.6400, L500.4050, L100.0100, L501.9310 ####[facility] [address] [place], [address] Hematocrit (Bld) [Volume fraction] 36.0 % Low 37-47 [facility] Comment on above: Order Comment: 103.1 Performed By: #### L 501.9520, L501.42111, L501.5200, L3300.6400, L500.4050, L100.0100, L501.9310 ####[facility] [address] [place], [address] Hemoglobin (Bld) [Mass/Vol] 10.4 g/dL Low 12.0-15.0 [facility] Comment on above: Order Comment: 103.1 Performed By: #### L 501.9520, L501.45937, L501.5200, L3300.6400, L500.4050, L100.0100, L501.9310 ####[facility] [address] [place], [address] IG% 1.000 High 0.0-0.9 [facility] Comment on above: Order Comment: 103.1 Result Comment: IG% - Immature Granulocytes (promyelocytes, myelocytes andmetamyelocytes) > 1% indicates that a LEFT SHIFT is Present. Performed By: #### L 501.9520, L501.19300, L501.5200, L3300.6400, L500.4050, L100.0100, L501.9310 ####[facility] [address] [place], [address] Lymphocytes/100 WBC (Bld) 12.8 % Low 19-41 [facility] Comment on above: Order Comment: 103.1 Performed By: #### L 501.9520, L501.98305, L501.5200, L3300.6400, L500.4050, L100.0100, L501.9310 ####[facility] [address] [place], [address] MCH (RBC) [Entitic mass] 28.2 pg Normal 27.0-32.0 [facility] Comment on above: Order Comment: 103.1 Performed By: #### L 501.9520, L501.27420, L501.5200, L3300.6400, L500.4050, L100.0100, L501.9310 ####[facility] [address] [facility] [address] [place], [address] MCHC (RBC) [Mass/Vol] 28.9 g/dL Low 32-[address] [facility] Comment on above: Order Comment: 103.1 Performed By: #### L 501.9520, L501.87668, L501.5200, L3300.6400, L500.4050, L100.0100, L501.9310 ####[facility] [address] [place], [address] MCV (RBC) [Entitic vol] 97.6 fL Normal 81-99 [facility] Comment on above: Order Comment: 103.1 Performed By: #### L 501.9520, L501.12339, L501.5200, L3300.6400, L500.4050, L100.0100, L501.9310 ####[facility] [address] [place], [address] Monocytes/100 WBC (Bld) 9.3 % Normal 0-10 [facility] Comment on above: Order Comment: 103.1 Performed By: #### L 501.9520, L501.63556, L501.5200, L3300.6400, L500.4050, L100.0100, L501.9310 ####[facility] [address] [place], [address] Neutrophils/100 WBC (Bld) 73.8 % High 47-70 [facility] Comment on above: Order Comment: 103.1 Performed By: #### L 501.9520, L501.45037, L501.5200, L3300.6400, L500.4050, L100.0100, L501.9310 ####[facility] [address] [place], [address] Nucleated RBC (Bld) [#/Vol] 0 10*3/uL Normal 0-5 [facility] Comment on above: Order Comment: 103.1 Performed By: #### L 501.9520, L501.41339, L501.5200, L3300.6400, L500.4050, L100.0100, L501.9310 ####[facility] [address] [place], [address] Platelet mean volume (Bld) [Entitic vol] 9.4 fL Normal 6.2-12.0 [facility] Comment on above: Order Comment: 103.1 Performed By: #### L 501.9520, L501.14084, L501.5200, L3300.6400, L500.4050, L100.0100, L501.9310 ####[facility] [address] [place], [address] Platelets (Bld) [#/Vol] 140 10*3/uL Low 150-450 [facility] Comment on above: Order Comment: 103.1 Performed By: #### L 501.9520, L501.28817, L501.5200, L3300.6400, L500.4050, L100.0100, L501.9310 ####[facility] [address] [place], [address] RBC (Bld) [#/Vol] 3.69 10*6/uL Low 4.2-5.4 [facility] Comment on above: Order Comment: 103.1 Performed By: #### L 501.9520, L501.88606, L501.5200, L3300.6400, L500.4050, L100.0100, L501.9310 ####[facility] [address] [place], [address] RDW SD 62.0 fl High 35.1-43.9 [facility] Comment on above: Order Comment: 103.1 Performed By: #### L 501.9520, L501.18012, L501.5200, L3300.6400, L500.4050, L100.0100, L501.9310 ####[facility] [address] [place], [address] WBC (Bld) [#/Vol] 4.8 10*3/uL Normal 4.4-11.0 [facility] Comment on above: Order Comment: 103.1 Performed By: #### L 501.9520, L501.92688, L501.5200, L3300.6400, L500.4050, L100.0100, L501.9310 ####[facility] [address] [place], [address] Calcium [Mass/Vol]Ordered By : Millie Massey on 05-27-2024 Serum or plasma calcium measurement (mass/volume) 7.8 mg/dL Low 8.5-10.1 [facility] Carbon dioxide measurementOr dered By: Millie Massey on 05-27-2024 Carbon dioxide measurement 30.0 mmol/L 21.0-32.0 [facility] Chloride measurementOrdered By: Millie Massey on 05-27-2024 Chloride measurement 103 mmol/L 98-107 [facility] Comprehensive Metabolic Prof ilon 05-27-2024 Albumin [Mass/Vol] 1.8 g/dL Low 3.2-5.0 [facility] Comment on above: Order Comment: 103.1 Performed By: #### L 501.9520, L501.97178, L501.5200, L3300.6400, L500.4050, L100.0100, L501.9310 ####[facility] [address] [place], [address] Albumin/Globulin [Mass ratio] 0.4 {ratio} Low 0.9-2.4 [facility] Comment on above: Order Comment: 103.1 Performed By: #### L 501.9520, L501.48264, L501.5200, L3300.6400, L500.4050, L100.0100, L501.9310 ####[facility] [address] [place], [address] ALK P 65 U/L Normal 45-117 [facility] Comment on above: Order Comment: 103.1 Performed By: #### L 501.9520, L501.49165, L501.5200, L3300.6400, L500.4050, L100.0100, L501.9310 ####[facility] [address] [place], [address] ALT [Catalytic activity/Vol] 10 U/L Low 13-56 [facility] Comment on above: Order Comment: 103.1 Performed By: #### L 501.9520, L501.39911, L501.5200, L3300.6400, L500.4050, L100.0100, L501.9310 ####[facility] [address] [place], [address] AST [Catalytic activity/Vol] 14 U/L Low 15-37 [facility] Comment on above: Order Comment: 103.1 Performed By: #### L 501.9520, L501.50431, L501.5200, L3300.6400, L500.4050, L100.0100, L501.9310 ####[facility] [address] [place], [address] Bilirubin [Mass/Vol] 0.40 mg/dL Normal 0.20-1.00 [facility] Comment on above: Order Comment: 103.1 Result Comment: For patients on eltrombopag therapy, use of Dimension [place] TBIL is not recommended. Performed By: #### L 501.9520, L501.84602, L501.5200, L3300.6400, L500.4050, L100.0100, L501.9310 ####[facility] [address] [place], [address] BUN/CRE 15.6 RATIO Normal 10-20 [facility] Comment on above: Order Comment: 103.1 Performed By: #### L 501.9520, L501.20207, L501.5200, L3300.6400, L500.4050, L100.0100, L501.9310 ####[facility] [address] [place], [address] CA,Total 7.8 mg/dL Low 8.5-10.1 [facility] Comment on above: Order Comment: 103.1 Performed By: #### L 501.9520, L501.71907, L501.5200, L3300.6400, L500.4050, L100.0100, L501.9310 ####[facility] [address] [place], [address] Chloride [Moles/Vol] 103 mmol/L Normal 98-107 [facility] Comment on above: Order Comment: 103.1 Performed By: #### L 501.9520, L501.19496, L501.5200, L3300.6400, L500.4050, L100.0100, L501.9310 ####[facility] [address] [place], [address] CO2 [Moles/Vol] 30.0 mmol/L Normal 21.0-32.0 [facility] Comment on above: Order Comment: 103.1 Performed By: #### L 501.9520, L501.86119, L501.5200, L3300.6400, L500.4050, L100.0100, L501.9310 ####[facility] [address] [place], [address] Creatinine [Mass/Vol] 1.41 mg/dL High 0.55-1.[address] [facility] Comment on above: Order Comment: 103.1 Result Comment: The validity of the calculated GFR GFRAA in patients over70 years has not been determined. Clinical correlation isessential. Performed By: #### L 501.9520, L501.07786, L501.5200, L3300.6400, L500.4050, L100.0100, L501.9310 ####[facility] [address] [place], [address] EST GFR - AA 49 mL/min Low >60 [facility] Comment on above: Order Comment: 103.1 Result Comment: Afri can Bruneian GFR Calc Performed By: #### L 501.9520, L501.78556, L501.5200, L3300.6400, L500.4050, L100.0100, L501.9310 ####[facility] [address] [place], [address] GAP 4 Low 5-15 [facility] Comment on above: Order Comment: 103.1 Performed By: #### L 501.9520, L501.11963, L501.5200, L3300.6400, L500.4050, L100.0100, L501.9310 ####[facility] [address] [place], [address] GFR/1.73 sq M.predicted among non-blacks MDRD (S/P/Bld) [Vol rate/Area] 40 mL/min/{1.73_m2} Low >60 [facility] Comment on above: Order Comment: 103.1 Result Comment: Non- GFR Calc Performed By: #### L 501.9520, L501.60752, L501.5200, L3300.6400, L500.4050, L100.0100, L501.9310 ####[facility] [address] [place], [address] Globulin (S) [Mass/Vol] 4.2 g/dL Normal 2.2-4.2 [facility] Comment on above: Order Comment: 103.1 Performed By: #### L 501.9520, L501.03104, L501.5200, L3300.6400, L500.4050, L100.0100, L501.9310 ####[facility] [address] [place], [address] Glucose [Mass/Vol] 74 mg/dL Normal 74-106 [facility] Comment on above: Order Comment: 103.1 Performed By: #### L 501.9520, L501.15763, L501.5200, L3300.6400, L500.4050, L100.0100, L501.9310 ####[facility] [address] [place], [address] Potassium [Moles/Vol] 4.0 mmol/L Normal 3.5-5.[address] [facility] Comment on above: Order Comment: 103.1 Performed By: #### L 501.9520, L501.87532, L501.5200, L3300.6400, L500.4050, L100.0100, L501.9310 ####[facility] [address] [place], [address] Sodium [Moles/Vol] 138 mmol/L Normal 136-145 [facility] Comment on above: Order Comment: 103.1 Performed By: #### L 501.9520, L501.43253, L501.5200, L3300.6400, L500.4050, L100.0100, L501.9310 ####[facility] [address] [place], [address] T PROT 6.0 g/dL Low 6.4-8.2 [facility] Comment on above: Order Comment: 103.1 Performed By: #### L 501.9520, L501.73688, L501.5200, L3300.6400, L500.4050, L100.0100, L501.9310 ####[facility] [address] [place], [address] Urea nitrogen [Mass/Vol] 22 mg/dL High 7-18 [facility] Comment on above: Order Comment: 103.1 Performed By: #### L 501.9520, L501.50075, L501.5200, L3300.6400, L500.4050, L100.0100, L501.9310 ####[facility] [address] [place], [place], [id number] Creatinine [Mass/Vol]Ordered By: Millie Massey on 05-27-2024 Serum or plasma creatinine measurement (mass/volume) 1.41 mg/dL High 0.55-1.02 [facility] Eosinophil percentageOrdered By: Millie Massey on 05-27-2024 Eosinophil percentage 2.3 % 0-[address] [facility] Erythrocyte distribution wid th (RBC) [Ratio]Ordered By: Millie Massey on 05-27-2024 Erythrocyte distribution width ratio 17.2 % High 11.6-14.6 [facility] Erythrocyte distribution wid th standard deviationOrdered By: Millie Massey on 05-27-2024 Erythrocyte distribution width standard deviation 62.0 fl High 35.1-43.9 [facility] Estimated glomerular filtrat ion rate (GFR) AmericanOrdered By: Millie Massey on 05-27-2024 Estimated glomerular filtration rate (GFR) 49 mL/min Low >60 [facility] Free T3on 05-27-2024 Free T3 [Mass/Vol] 0.9 pg/mL Low 2.18-3.98 [facility] Comment on above: Order Comment: 103.1 Performed By: #### L 501.9520, L501.23701, L501.5200, L3300.6400, L500.4050, L100.0100, L501.9310 ####[facility] [address] [place], [place], [id number] Free W7Dbfdcwj By: Millie ramirez on 05-27-2024 Free T3 0.9 pg/mL Low 2.18-3.98 [facility] Glomerular filtration rate ( GFR) estimationOrdered By: Millie Massey on 05-27-2024 Glomerular filtration rate (GFR) estimation 40 mL/min Low >60 [facility] Glucose measurementOrdered B y: Millie Massey on 05-27-2024 Glucose measurement 74 mg/dL 74-106 [facility] Hematocrit Auto (Bld) [Volum e fraction]Ordered By: Millie Massey on 05-27-2024 Automated blood hematocrit (percentage) 36.0 % Low 37-47 [facility] Hemoglobin measurementOrdere d By: Millie Massey on 05-27-2024 Hemoglobin measurement 10.4 g/dL Low 12.0-15.0 [facility] Immature granulocytes/100 WB C Auto (Bld)Ordered By: Millieblanche Massey on 05-27-2024 Automated immature granulocyte percentage 1.000 % High 0.0-0.9 [facility] Lymphocytes Auto (Unsp spec) [#/Vol]Ordered By: Millie Massey on 05-27-2024 Absolute lymphocyte count 0.62 X10^3/uL Low 0.83-4.51 [facility] Lymphocytes/100 WBC Auto (Un sp spec)Ordered By: Millie Massey on 05-27-2024 Automated lymphocyte count as percentage of total leukocytes 12.8 % Low 19-41 [facility] MCV (RBC) [Entitic vol]Order ed By: Millie Massey on 05-27-2024 MCV (mean corpuscular volume) determination 97.6 fL 81-99 [facility] Magnesiumon 05-27-2024 Magnesium [Mass/Vol] 2.0 mg/dL Normal 1.6-2.6 [facility] Comment on above: Order Comment: 103.1 Performed By: #### L 501.9520, L501.67473, L501.5200, L3300.6400, L500.4050, L100.0100, L501.9310 ####[facility] [address] [place], [address] Magnesium measurementOrdered By: Millie Massey on 05-27-2024 Magnesium measurement 2.0 mg/dL 1.6-2.[address] [facility] Mean corpuscular hemoglobin (MCH) determinationOrdered By: Millie Massey on 05-27-2024 Mean corpuscular hemoglobin (MCH) determination 28.2 pg 27.0-32.0 [facility] Mean corpuscular hemoglobin concentration (MCHC) determinationOrdered By: Millie Massey on 05-27-2024 Mean corpuscular hemoglobin concentration (MCHC) determination 28.9 g/dL Low 32-36 [facility] Mean platelet volume determi nationOrdered By: Millie Massey on 05-27-2024 Mean platelet volume determination 9.4 fl 6.2-12.0 [facility] Miscellaneous procedureOrder ed By: Millie Massey on 05-27-2024 Miscellaneous procedure See comment [facility] Monocyte percentageOrdered B y: Millie Massey on 05-27-2024 Monocyte percentage 9.3 % 0-10 [facility] Neutrophil percentageOrdered By: Millie Massey on 05-27-2024 Neutrophil percentage 73.8 % High 47-[address] [facility] No Panel InformationOrdered By: Millie Massey on 05-27-2024 14 U/L Low 15-37 [facility] Nucleated red blood cell per centageOrdered By: Millie Massey on 05-27-2024 Nucleated red blood cell percentage 0 % 0-5 [facility] Platelet countOrdered By: Carter Massey on 05-27-2024 Platelet count 140 K/mm3 Low 150-450 [facility] Potassium measurementOrdered By: Millie Massey on 05-27-2024 Potassium measurement 4.0 mmol/L 3.5-5.[address] [facility] RBC Auto (Bld) [#/Vol]Ordere d By: Millie Massey on 05-27-2024 Automated blood erythrocyte count 3.69 M/mm3 Low 4.2-5.4 [facility] Serum anion gap measurementO rdered By: Millie Massey on 05-27-2024 Serum anion gap measurement 4 Low 5-15 [facility] Serum globulin measurementOr dered By: Millie Massey on 05-27-2024 Serum globulin measurement 4.2 g/dL 2.2-4.2 [facility] Serum prealbumin measurement by immunoassayOrdered By: Millie Massey on 05-27-2024 Serum prealbumin measurement by immunoassay 10 mg/dL 10-36 [facility] Sodium levelOrdered By: Silvana Massey on 05-27-2024 Sodium level 138 mmol/L 136-145 [facility] T4 Total, Thyroxinon 024 T4 [Mass/Vol] 11.8 ug/dL Normal 4.8-13.9 [facility] Comment on above: Order Comment: 103.1 Performed By: #### L 501.9520, L501.54291, L501.5200, L3300.6400, L500.4050, L100.0100, L501.9310 ####[facility] [address] [place], [address] T4 [Mass/Vol]Ordered By: Lesli Massey on 05-27-2024 Serum or plasma thyroxine (T4) measurement (mass/volume) 11.8 ug/dL 4.8-13.9 [facility] TSH QnOrdered By: Millie little on 05-27-2024 Serum or plasma thyroid stimulating hormone (TSH) measurement (units/volume) 3.060 uIU/mL 0.358-3.74 0 [facility] Thyroid Stim Hormone (TSH)on 05-27-2024 TSH 3.060 uIU/mL Normal 0.358-3.74 0 [facility] Comment on above: Order Comment: 103.1 Performed By: #### L 501.9520, L501.86951, L501.5200, L3300.6400, L500.4050, L100.0100, L501.9310 ####[facility] [address] [place], [address] Total proteinOrdered By: Lesli Massey on 05-27-2024 Total protein 6.0 g/dL Low 6.4-8.2 [facility] Urea nitrogen [Mass/Vol]Orde red By: Millie Massey on 05-27-2024 Serum or plasma urea nitrogen measurement (mass/volume) 22 mg/dL High 7-18 [facility] White blood cell (WBC) count Ordered By: Millie Massey on 05-27-2024 White blood cell (WBC) count 4.8 K/mm3 4.4-11.0 [facility] Miscellaneous Lab Procedureo n 05-10-2024 MISC LAB TEST Normal [facility] Comment on above: Order Comment: [id number] CYSTATIN C SERUM RT Result Comment: TEST RESULTS LIMITSCystatin C 3.68 High mg/L 0.72-1.16 ___ [facility]. ORIGINAL REPORT ON FILE IN LAB CONTAINS ADDITIONAL TEST SITE INFORMATION. Performed By: #### L 801.1541 ####[facility] [address] [place], [place], [id number] Surgery Visit Reporton 04-30 Surgery Visit Report Normal [facility] Basic Metabolic Profile (BMP )on 04-24-2024 BUN/CRE 11.9 RATIO Normal - [facility] Comment on above: Order Comment: 103 Performed By: #### L 500.2500, L501.9310, L501.9186, L501.9520, L100.0500 ####[facility] [address] [place], [address] CA,Total 7.7 mg/dL Low 8.5-10.1 [facility] Comment on above: Order Comment: 103 Performed By: #### L 500.2500, L501.9310, L501.9186, L501.9520, L100.0500 ####[facility] [address] [place], [address] Chloride [Moles/Vol] 109 mmol/L High 98-107 [facility] Comment on above: Order Comment: 103 Performed By: #### L 500.2500, L501.9310, L501.9186, L501.9520, L100.0500 ####[facility] [address] [place], [address] CO2 [Moles/Vol] 29.0 mmol/L Normal 21.0-32.0 [facility] Comment on above: Order Comment: 103 Performed By: #### L 500.2500, L501.9310, L501.9186, L501.9520, L100.0500 ####[facility] [address] [place], [address] Creatinine [Mass/Vol] 1.77 mg/dL High 0.55-1.[address] [facility] Comment on above: Order Comment: 103 Result Comment: The validity of the calculated GFR GFRAA in patients over70 years has not been determined. Clinical correlation isessential. Performed By: #### L 500.2500, L501.9310, L501.9186, L501.9520, L100.0500 ####[facility] [address] [place], [address] EST GFR - AA 37 mL/min Low >60 [facility] Comment on above: Order Comment: 103 Result Comment: Afri can [place]uneian GFR Calc Performed By: #### L 500.2500, L501.9310, L501.9186, L501.9520, L100.0500 ####[facility] [address] [place], [address] GAP 2 Low 5-15 [facility] Comment on above: Order Comment: 103 Performed By: #### L 500.2500, L501.9310, L501.9186, L501.9520, L100.0500 ####[facility] [address] [place], [address] GFR/1.73 sq M.predicted among non-blacks MDRD (S/P/Bld) [Vol rate/Area] 31 mL/min/{1.73_m2} Low >60 [facility] Comment on above: Order Comment: 103 Result Comment: Non- GFR Calc Performed By: #### L 500.2500, L501.9310, L501.9186, L501.9520, L100.0500 ####[facility] [address] [place], [address] Glucose [Mass/Vol] 65 mg/dL Low 74-106 [facility] Comment on above: Order Comment: 103 Performed By: #### L 500.2500, L501.9310, L501.9186, L501.9520, L100.0500 ####[facility] [address] [place], [address] Potassium [Moles/Vol] 4.9 mmol/L Normal 3.5-5.[address] [facility] Comment on above: Order Comment: 103 Performed By: #### L 500.2500, L501.9310, L501.9186, L501.9520, L100.0500 ####[facility] [address] [place], [address] Sodium [Moles/Vol] 140 mmol/L Normal 136-145 [facility] Comment on above: Order Comment: 103 Performed By: #### L 500.2500, L501.9310, L501.9186, L501.9520, L100.0500 ####[facility] [address] [place], [address] Urea nitrogen [Mass/Vol] 21 mg/dL High 7-18 [facility] Comment on above: Order Comment: 103 Performed By: #### L 500.2500, L501.9310, L501.9186, L501.9520, L100.0500 ####[facility] [address] [place], [address] Blood urea nitrogen (BUN)/cr eatinine ratioOrdered By: Ethan Rodriguez on 04-24-2024 Blood urea nitrogen (BUN)/creatinine ratio 11.9 RATIO 10-20 [facility] CBC-Complete Blood Cnt No Di ffon 04-24-2024 Erythrocyte distribution width (RBC) [Ratio] 18.4 % High 11.6-14.6 [facility] Comment on above: Order Comment: 103 Performed By: #### L 500.2500, L501.9310, L501.9186, L501.9520, L100.0500 ####[facility] [address] [place], [address] Hematocrit (Bld) [Volume fraction] 35.3 % Low 37-47 [facility] Comment on above: Order Comment: 103 Performed By: #### L 500.2500, L501.9310, L501.9186, L501.9520, L100.0500 ####[facility] [address] [place], [address] Hemoglobin (Bld) [Mass/Vol] 10.4 g/dL Low 12.0-15.0 [facility] Comment on above: Order Comment: 103 Performed By: #### L 500.2500, L501.9310, L501.9186, L501.9520, L100.0500 ####[facility] [address] [place], [address] MCH (RBC) [Entitic mass] 27.3 pg Normal 27.0-32.0 [facility] Comment on above: Order Comment: 103 Performed By: #### L 500.2500, L501.9310, L501.9186, L501.9520, L100.0500 ####[facility] [address] [place], [address] MCHC (RBC) [Mass/Vol] 29.5 g/dL Low 32-[address] [facility] Comment on above: Order Comment: 103 Performed By: #### L 500.2500, L501.9310, L501.9186, L501.9520, L100.0500 ####[facility] [address] [place], [address] MCV (RBC) [Entitic vol] 92.7 fL Normal 81-99 [facility] Comment on above: Order Comment: 103 Performed By: #### L 500.2500, L501.9310, L501.9186, L501.9520, L100.0500 ####[facility] [address] [place], [address] Platelet mean volume (Bld) [Entitic vol] 11.0 fL Normal 6.2-12.0 [facility] Comment on above: Order Comment: 103 Performed By: #### L 500.2500, L501.9310, L501.9186, L501.9520, L100.0500 ####[facility] [address] [place], [address] Platelets (Bld) [#/Vol] 105 10*3/uL Low 150-450 [facility] Comment on above: Order Comment: 103 Performed By: #### L 500.2500, L501.9310, L501.9186, L501.9520, L100.0500 ####[facility] [address] [place], [address] RBC (Bld) [#/Vol] 3.81 10*6/uL Low 4.2-5.4 [facility] Comment on above: Order Comment: 103 Performed By: #### L 500.2500, L501.9310, L501.9186, L501.9520, L100.0500 ####[facility] [address] [place], [address] RDW SD 61.0 fl High 35.1-43.9 [facility] Comment on above: Order Comment: 103 Performed By: #### L 500.2500, L501.9310, L501.9186, L501.9520, L100.0500 ####[facility] [address] [place], [address] WBC (Bld) [#/Vol] 4.5 10*3/uL Normal 4.4-11.0 [facility] Comment on above: Order Comment: 103 Performed By: #### L 500.2500, L501.9310, L501.9186, L501.9520, L100.0500 ####[facility] [address] [facility] [place], [address] Calcium [Mass/Vol]Ordered By : Ethan Rodriguez on 04-24-2024 Serum or plasma calcium measurement (mass/volume) 7.7 mg/dL Low 8.5-10.1 [facility] Carbon dioxide measurementOr dered By: Ethan Rodriguez on 04-24-2024 Carbon dioxide measurement 29.0 mmol/L 21.0-32.0 [facility] Chloride measurementOrdered By: Ethan Rodriguez on 04-24-2024 Chloride measurement 109 mmol/L High 98-107 [facility] Creatinine [Mass/Vol]Ordered By: Ethan Rodriguez on 04-24-2024 Serum or plasma creatinine measurement (mass/volume) 1.77 mg/dL High 0.55-1.02 [facility] Erythrocyte distribution wid th (RBC) [Entitic vol]Ordered By: Ethan Rodriguez on 04-24-2024 Erythrocyte distribution width standard deviation 61.0 fl High 35.1-43.9 [facility] Erythrocyte distribution wid th (RBC) [Ratio]Ordered By: Ethan Rodriguez on 04-24-2024 Erythrocyte distribution width ratio 18.4 % High 11.6-14.6 [facility] Estimated glomerular filtrat ion rate (GFR) AmericanOrdered By: Ethan Rodriguez on 04-24-2024 Estimated glomerular filtration rate (GFR) 37 mL/min Low >60 [facility] Glomerular filtration rate ( GFR) estimationOrdered By: Ethan Rodriguez on 04-24-2024 Glomerular filtration rate (GFR) estimation 31 mL/min Low >60 [facility] Glucose measurementOrdered B y: Ethan Rodriguez on 04-24-2024 Glucose measurement 65 mg/dL Low 74-106 [facility] Hematocrit Auto (Bld) [Volum e fraction]Ordered By: Ethan Rodriguez on 04-24-2024 Automated blood hematocrit (percentage) 35.3 % Low 37-47 [facility] Hemoglobin measurementOrdere d By: Ethan Rodriguez on 04-24-2024 Hemoglobin measurement 10.4 g/dL Low 12.0-15.0 [facility] MCV (RBC) [Entitic vol]Order ed By: Ethan Rodriguez on 04-24-2024 MCV (mean corpuscular volume) determination 92.7 fL 81-99 [facility] Mean corpuscular hemoglobin (MCH) determinationOrdered By: Ethan Rodriguez on 04-24-2024 Mean corpuscular hemoglobin (MCH) determination 27.3 pg 27.0-32.0 [facility] Mean corpuscular hemoglobin concentration (MCHC) determinationOrdered By: Ethan Rodriguez on 04-24-2024 Mean corpuscular hemoglobin concentration (MCHC) determination 29.5 g/dL Low 32-36 [facility] Mean platelet volume determi nationOrdered By: Ethan Rodriguez on 04-24-2024 Mean platelet volume determination 11.0 fl 6.2-12.0 [facility] Platelet countOrdered By: Chester Rodriguez on 04-24-2024 Platelet count 105 K/mm3 Low 150-450 [facility] Potassium measurementOrdered By: Ethan Rodriguez on 04-24-2024 Potassium measurement 4.9 mmol/L 3.5-5.[address] [facility] RBC Auto (Bld) [#/Vol]Ordere d By: Ethan Rodriguez on 04-24-2024 Automated blood erythrocyte count 3.81 M/mm3 Low 4.2-5.4 [facility] Serum anion gap measurementO rdered By: Ethan Rodriguez on 04-24-2024 Serum anion gap measurement 2 Low 5-15 [facility] Sodium levelOrdered By: Ethan Rodriguez on 04-24-2024 Sodium level 140 mmol/L 136-145 [facility] T3 IA [Mass/Vol]Ordered By: Ethan Rodriguez on 04-24-2024 Serum or plasma triiodothyronine measurement by immunoassay (mass/volume) 0.64 ng/mL 0.6-1.81 [facility] T3 Total - Triiodothyronineo n 04-24-2024 T3 Total 0.64 ng/mL Normal 0.6-1.81 [facility] Comment on above: Order Comment: 103 Performed By: #### L 500.2500, L501.9310, L501.9186, L501.9520, L100.0500 ####[facility] [address] [place], [place], [id number] T4 Total, Thyroxinon 024 T4 [Mass/Vol] 6.1 ug/dL Normal 4.8-13.9 [facility] Comment on above: Order Comment: 103 Performed By: #### L 500.2500, L501.9310, L501.9186, L501.9520, L100.0500 ####[facility] [address] [place], [place], [address] T4 [Mass/Vol]Ordered By: Ava Rodriguez on 04-24-2024 Serum or plasma thyroxine (T4) measurement (mass/volume) 6.1 ug/dL 4.8-13.9 [facility] TSH QnOrdered By: Ethan calvert on 04-24-2024 Serum or plasma thyroid stimulating hormone (TSH) measurement (units/volume) 12.000 uIU/mL High 0.358-3.74 0 [facility] Thyroid Stim Hormone (TSH)on 04-24-2024 TSH 12.000 uIU/mL High 0.358-3.74 0 [facility] Comment on above: Order Comment: 103 Performed By: #### L 500.2500, L501.9310, L501.9186, L501.9520, L100.0500 ####[facility] [address] [place], [address] Urea nitrogen [Mass/Vol]Orde red By: Ethan Rodriguez on 04-24-2024 Serum or plasma urea nitrogen measurement (mass/volume) 21 mg/dL High 7-18 [facility] White blood cell (WBC) count Ordered By: Ethan Rodriguez on 04-24-2024 White blood cell (WBC) count 4.5 K/mm3 4.4-11.0 [facility] Basic Metabolic Profile (BMP )on 04-23-2024 BUN Normal -18 [facility] Comment on above: Order Comment: 103.1 Result Comment: UTO Performed By: #### L 500.2500, L100.0500 ####[facility] [address] [place], [address] BUN/CRE Normal 10-20 [facility] Comment on above: Order Comment: 103.1 Result Comment: UTO Performed By: #### L 500.2500, L100.0500 ####[facility] [address] [place], [address] CA,Total Normal 8.5-10.1 [facility] Comment on above: Order Comment: 103.1 Result Comment: UTO Performed By: #### L 500.2500, L100.0500 ####[facility] [address] [place], [address] CL Normal 98-107 [facility] Comment on above: Order Comment: 103.1 Result Comment: UTO Performed By: #### L 500.2500, L100.0500 ####[facility] [address] [place], [address] CO2 Normal 21.0-32.0 [facility] Comment on above: Order Comment: 103.1 Result Comment: UTO Performed By: #### L 500.2500, L100.0500 ####[facility] [address] [place], [address] CREAT,SERUM Normal 0.55-1.02 [facility] Comment on above: Order Comment: 103.1 Result Comment: UTO Performed By: #### L 500.2500, L100.0500 ####[facility] [address] [place], [address] EST GFR Normal >60 [facility] Comment on above: Order Comment: 103.1 Result Comment: UTO Performed By: #### L 500.2500, L100.0500 ####[facility] [address] [place], [address] EST GFR - AA Normal >60 [facility] Comment on above: Order Comment: 103.1 Result Comment: UTO Performed By: #### L 500.2500, L100.0500 ####[facility] [address] [place], [address] GAP Normal 5-15 [facility] Comment on above: Order Comment: 103.1 Result Comment: UTO Performed By: #### L 500.2500, L100.0500 ####[facility] [address] [place], [address] GLU Normal 74-106 [facility] Comment on above: Order Comment: 103.1 Result Comment: UTO Performed By: #### L 500.2500, L100.0500 ####[facility] [address] [place], [address] Potassium Normal 3.5-5.1 [facility] Comment on above: Order Comment: 103.1 Result Comment: UTO Performed By: #### L 500.2500, L100.0500 ####[facility] [address] [place], [address] Basic Metabolic Profile (BMP) Normal 136-145 [facility] Comment on above: Order Comment: 103.1 Result Comment: UTO Performed By: #### L 500.2500, L100.0500 ####[facility] [address] [place], [address] CBC-Complete Blood Cnt No Di ffon 04-23-2024 HCT Normal 37-47 [facility] Comment on above: Order Comment: 103.1 Result Comment: UTO Performed By: #### L 500.2500, L100.0500 ####[facility] [address] [place], [address] HGB Normal 12.0-15.0 [facility] Comment on above: Order Comment: 103.1 Result Comment: UTO Performed By: #### L 500.2500, L100.0500 ####[facility] [address] [place], [address] MCH Normal 27.0-32.0 [facility] Comment on above: Order Comment: 103.1 Result Comment: UTO Performed By: #### L 500.2500, L100.0500 ####[facility] [address] [place], [address] MCHC Normal 32-36 [facility] Comment on above: Order Comment: 103.1 Result Comment: UTO Performed By: #### L 500.2500, L100.0500 ####[facility] [address] [place], [address] MCV Normal 81-99 [facility] Comment on above: Order Comment: 103.1 Result Comment: UTO Performed By: #### L 500.2500, L100.0500 ####[facility] [address] [place], [address] PLT Normal 150-450 [facility] Comment on above: Order Comment: 103.1 Result Comment: UTO Performed By: #### L 500.2500, L100.0500 ####[facility] [address] [place], [address] RBC Normal 4.2-5.4 [facility] Comment on above: Order Comment: 103.1 Result Comment: UTO Performed By: #### L 500.2500, L100.0500 ####[facility] [address] [place], [address] RDW CV Normal 11.6-14.6 [facility] Comment on above: Order Comment: 103.1 Result Comment: UTO Performed By: #### L 500.2500, L100.0500 ####[facility] [address] [place], [address] RDW SD Normal 35.1-43.9 [facility] Comment on above: Order Comment: 103.1 Result Comment: UTO Performed By: #### L 500.2500, L100.0500 ####[facility] [address] [place], [address] WBC Normal 4.4-11.0 [facility] Comment on above: Order Comment: 103.1 Result Comment: UTO Performed By: #### L 500.2500, L100.0500 ####[facility] [address] [place], [address] ALP [Catalytic activity/Vol] Ordered By: Ethan Rodriguez on 04-17-2024 Serum or plasma alkaline phosphatase measurement 71 U/L 45-117 [facility] ALT [Catalytic activity/Vol] Ordered By: Ethan Rodriguez on 04-17-2024 Serum or plasma alanine aminotransferase (ALT) measurement 8 U/L Low 13-56 [facility] Albumin [Mass/Vol]Ordered By : Ethan Rodriguez on 04-17-2024 Serum or plasma albumin measurement (mass/volume) 1.7 g/dL Low 3.2-5.0 [facility] Albumin to globulin ratioOrd ered By: Ethan Rodriguez on 04-17-2024 Albumin to globulin ratio 0.4 RATIO Low 0.9-2.4 [facility] Ammoniaon 04-17-2024 Ammonia (P) [Moles/Vol] 22.0 umol/L Normal 11-32 [facility] Comment on above: Performed By: #### L 100.0500, L100.4500, L503.5510, L504.2610, L500.4050, M100.6795, M100.6796 ####[facility] [address] [place], [address] Bilirubin, totalOrdered By: Ethan Rodriguez on 04-17-2024 Bilirubin, total 0.40 mg/dL 0.20-1.00 [facility] Blood urea nitrogen (BUN)/cr eatinine ratioOrdered By: Ethan Rodriguez on 04-17-2024 Blood urea nitrogen (BUN)/creatinine ratio 18.1 RATIO 03-17 [facility] CBC-Complete Blood Cnt No Di ffon 04-17-2024 Erythrocyte distribution width (RBC) [Ratio] 17.9 % High 11.6-14.6 [facility] Comment on above: Performed By: #### L 100.0500, L100.4500, L503.5510, L504.2610, L500.4050, M100.6795, M100.6796 ####[facility] [address] [place], [place], [id number] Hematocrit (Bld) [Volume fraction] 37.4 % Normal 37-47 [facility] Comment on above: Performed By: #### L 100.0500, L100.4500, L503.5510, L504.2610, L500.4050, M100.6795, M100.6796 ####[facility] [address] [place], [address] Hemoglobin (Bld) [Mass/Vol] 10.9 g/dL Low 12.0-15.0 [facility] Comment on above: Performed By: #### L 100.0500, L100.4500, L503.5510, L504.2610, L500.4050, M100.6795, M100.6796 ####[facility] [address] [place], [address] MCH (RBC) [Entitic mass] 27.3 pg Normal 27.0-32.0 [facility] Comment on above: Performed By: #### L 100.0500, L100.4500, L503.5510, L504.2610, L500.4050, M100.6795, M100.6796 ####[facility] [address] [place], [address] MCHC (RBC) [Mass/Vol] 29.1 g/dL Low 32-[address] [facility] Comment on above: Performed By: #### L 100.0500, L100.4500, L503.5510, L504.2610, L500.4050, M100.6795, M100.6796 ####[facility] [address] [place], [address] MCV (RBC) [Entitic vol] 93.5 fL Normal 81-99 [facility] Comment on above: Performed By: #### L 100.0500, L100.4500, L503.5510, L504.2610, L500.4050, M100.6795, M100.6796 ####[facility] [address] [place], [address] Platelet mean volume (Bld) [Entitic vol] 9.8 fL Normal 6.2-12.0 [facility] Comment on above: Performed By: #### L 100.0500, L100.4500, L503.5510, L504.2610, L500.4050, M100.6795, M100.6796 ####[facility] [address] [place], [address] Platelets (Bld) [#/Vol] 92 10*3/uL Low 150-450 [facility] Comment on above: Performed By: #### L 100.0500, L100.4500, L503.5510, L504.2610, L500.4050, M100.6795, M100.6796 ####[facility] [address] [place], [address] RBC (Bld) [#/Vol] 4.00 10*6/uL Low 4.2-5.4 [facility] Comment on above: Performed By: #### L 100.0500, L100.4500, L503.5510, L504.2610, L500.4050, M100.6795, M100.6796 ####[facility] [address] [place], [address] RDW SD 61.1 fl High 35.1-43.9 [facility] Comment on above: Performed By: #### L 100.0500, L100.4500, L503.5510, L504.2610, L500.4050, M100.6795, M100.6796 ####[facility] [address] [place], [address] WBC (Bld) [#/Vol] 5.5 10*3/uL Normal 4.4-11.0 [facility] Comment on above: Performed By: #### L 100.0500, L100.4500, L503.5510, L504.2610, L500.4050, M100.6795, M100.6796 ####[facility] [address] [place], [address] CDIFF (PCR)on 04-17-2024 CDIFF Normal [facility] Comment on above: Performed By: #### L 100.0500, L100.4500, L503.5510, L504.2610, L500.4050, M100.6795, M100.6796 ####[facility] [address] [place], [place], [id number] Calcium [Mass/Vol]Ordered By : Ethan Rodriguez on 04-17-2024 Serum or plasma calcium measurement (mass/volume) 7.7 mg/dL Low 8.5-10.1 [facility] Carbon dioxide measurementOr dered By: Ethan Rodriguez on 04-17-2024 Carbon dioxide measurement 26.0 mmol/L 21.0-32.0 [facility] Chloride measurementOrdered By: Ethan Rodriguez on 04-17-2024 Chloride measurement 105 mmol/L 98-107 [facility] Clostridium Diff Toxin/Agon 04-17-2024 CDIFF (EIA) Normal [facility] Comment on above: Performed By: #### L 100.0500, L100.4500, L503.5510, L504.2610, L500.4050, M100.6795, M100.6796 ####[facility] [address] [place], [address] Comprehensive Metabolic Prof ilon 04-17-2024 Albumin [Mass/Vol] 1.7 g/dL Low 3.2-5.0 [facility] Comment on above: Order Comment: 1 Performed By: #### L 100.0500, L100.4500, L503.5510, L504.2610, L500.4050, M100.6795, M100.6796 ####[facility] [address] [place], [address] Albumin/Globulin [Mass ratio] 0.4 {ratio} Low 0.9-2.4 [facility] Comment on above: Order Comment: 1 Performed By: #### L 100.0500, L100.4500, L503.5510, L504.2610, L500.4050, M100.6795, M100.6796 ####[facility] [address] [place], [address] ALK P 71 U/L Normal 45-117 [facility] Comment on above: Order Comment: 1 Performed By: #### L 100.0500, L100.4500, L503.5510, L504.2610, L500.4050, M100.6795, M100.6796 ####[facility] [address] [place], [address] ALT [Catalytic activity/Vol] 8 U/L Low 13-56 [facility] Comment on above: Order Comment: 1 Performed By: #### L 100.0500, L100.4500, L503.5510, L504.2610, L500.4050, M100.6795, M100.6796 ####[facility] [address] [place], [address] AST [Catalytic activity/Vol] 19 U/L Normal 15-37 [facility] Comment on above: Order Comment: 1 Result Comment: Slig ht Hemolysis, Result may be falsely increased. Performed By: #### L 100.0500, L100.4500, L503.5510, L504.2610, L500.4050, M100.6795, M100.6796 ####[facility] [address] [place], [address] Bilirubin [Mass/Vol] 0.40 mg/dL Normal 0.20-1.00 [facility] Comment on above: Order Comment: 1 Result Comment: For patients on eltrombopag therapy, use of Dimension [place] TBIL is not recommended. Performed By: #### L 100.0500, L100.4500, L503.5510, L504.2610, L500.4050, M100.6795, M100.6796 ####[facility] [address] [place], [address] BUN/CRE 18.1 RATIO Normal 10-20 [facility] Comment on above: Order Comment: 1 Performed By: #### L 100.0500, L100.4500, L503.5510, L504.2610, L500.4050, M100.6795, M100.6796 ####[facility] [address] [place], [address] CA,Total 7.7 mg/dL Low 8.5-10.1 [facility] Comment on above: Order Comment: 1 Performed By: #### L 100.0500, L100.4500, L503.5510, L504.2610, L500.4050, M100.6795, M100.6796 ####[facility] [address] [place], [address] Chloride [Moles/Vol] 105 mmol/L Normal 98-107 [facility] Comment on above: Order Comment: 1 Performed By: #### L 100.0500, L100.4500, L503.5510, L504.2610, L500.4050, M100.6795, M100.6796 ####[facility] [address] [place], [address] CO2 [Moles/Vol] 26.0 mmol/L Normal 21.0-32.0 [facility] Comment on above: Order Comment: 1 Performed By: #### L 100.0500, L100.4500, L503.5510, L504.2610, L500.4050, M100.6795, M100.6796 ####[facility] [address] [place], [address] Creatinine [Mass/Vol] 2.10 mg/dL High 0.55-1.[address] [facility] Comment on above: Order Comment: 1 Result Comment: The validity of the calculated GFR GFRAA in patients over70 years has not been determined. Clinical correlation isessential. Performed By: #### L 100.0500, L100.4500, L503.5510, L504.2610, L500.4050, M100.6795, M100.6796 ####[facility] [address] [place], [address] EST GFR - AA 31 mL/min Low >60 [facility] Comment on above: Order Comment: 1 Result Comment: Afri can [place] GFR Calc Performed By: #### L 100.0500, L100.4500, L503.5510, L504.2610, L500.4050, M100.6795, M100.6796 ####[facility] [address] [place], [address] GAP 6 Normal 5-15 [facility] Comment on above: Order Comment: 1 Performed By: #### L 100.0500, L100.4500, L503.5510, L504.2610, L500.4050, M100.6795, M100.6796 ####[facility] [address] [place], [address] GFR/1.73 sq M.predicted among non-blacks MDRD (S/P/Bld) [Vol rate/Area] 25 mL/min/{1.73_m2} Low >60 [facility] Comment on above: Order Comment: 1 Result Comment: Non- GFR Calc Performed By: #### L 100.0500, L100.4500, L503.5510, L504.2610, L500.4050, M100.6795, M100.6796 ####[facility] [address] [place], [address] Globulin (S) [Mass/Vol] 4.0 g/dL Normal 2.2-4.2 [facility] Comment on above: Order Comment: 1 Performed By: #### L 100.0500, L100.4500, L503.5510, L504.2610, L500.4050, M100.6795, M100.6796 ####[facility] [address] [place], [address] Glucose [Mass/Vol] 70 mg/dL Low 74-106 [facility] Comment on above: Order Comment: 1 Performed By: #### L 100.0500, L100.4500, L503.5510, L504.2610, L500.4050, M100.6795, M100.6796 ####[facility] [address] [place], [address] Potassium [Moles/Vol] 4.2 mmol/L Normal 3.5-5.[address] [facility] Comment on above: Order Comment: 1 Result Comment: Slig ht Hemolysis, Result may be falsely increased. Performed By: #### L 100.0500, L100.4500, L503.5510, L504.2610, L500.4050, M100.6795, M100.6796 ####[facility] [address] [place], [address] Sodium [Moles/Vol] 137 mmol/L Normal 136-145 [facility] Comment on above: Order Comment: 1 Performed By: #### L 100.0500, L100.4500, L503.5510, L504.2610, L500.4050, M100.6795, M100.6796 ####[facility] [address] [place], [address] T PROT 5.7 g/dL Low 6.4-8.2 [facility] Comment on above: Order Comment: 1 Performed By: #### L 100.0500, L100.4500, L503.5510, L504.2610, L500.4050, M100.6795, M100.6796 ####[facility] [address] [place], [address] Urea nitrogen [Mass/Vol] 38 mg/dL High 7-18 [facility] Comment on above: Order Comment: 1 Performed By: #### L 100.0500, L100.4500, L503.5510, L504.2610, L500.4050, M100.6795, M100.6796 ####[facility] [address] [place], [address] Creatinine [Mass/Vol]Ordered By: Ethan Rodriguez on 04-17-2024 Serum or plasma creatinine measurement (mass/volume) 2.10 mg/dL High 0.55-1.02 [facility] Differential Commenton 04-17 SMEAR COMMENT COMMENT Normal [facility] Comment on above: Result Comment: PLT POPULATION - MODERATELY DECREASED. Performed By: #### L 100.0500, L100.4500, L503.5510, L504.2610, L500.4050, M100.6795, M100.6796 ####[facility] [address] [place], [place], [address] Erythrocyte distribution wid th (RBC) [Entitic vol]Ordered By: Ethan Rodriguez on 04-17-2024 Erythrocyte distribution width standard deviation 61.1 fl High 35.1-43.9 [facility] Erythrocyte distribution wid th (RBC) [Ratio]Ordered By: Ethan Rodriguez on 04-17-2024 Erythrocyte distribution width ratio 17.9 % High 11.6-14.6 [facility] Estimated glomerular filtrat ion rate (GFR) AmericanOrdered By: Ethan Rodriguez on 04-17-2024 Estimated glomerular filtration rate (GFR) 31 mL/min Low >60 [facility] Glomerular filtration rate ( GFR) estimationOrdered By: Ethan Rodriguez on 04-17-2024 Glomerular filtration rate (GFR) estimation 25 mL/min Low >60 [facility] Glucose measurementOrdered B y: Ethan Rodriguez on 04-17-2024 Glucose measurement 70 mg/dL Low 74-106 [facility] Hematocrit Auto (Bld) [Volum e fraction]Ordered By: Ethan Rodriguez on 04-17-2024 Automated blood hematocrit (percentage) 37.4 % 37-47 [facility] Hemoglobin measurementOrdere d By: Ethan Rodriguez on 04-17-2024 Hemoglobin measurement 10.9 g/dL Low 12.0-15.0 [facility] LDHon 04-17-2024 LDH 237 U/L Normal 84-246 [facility] Comment on above: Order Comment: 1 Result Comment: Slig ht Hemolysis, Result may be falsely increased. Performed By: #### L 100.0500, L100.4500, L503.5510, L504.2610, L500.4050, M100.6795, M100.6796 ####[facility] [address] [place], [place], [address] Lactate dehydrogenase (LDH) measurementOrdered By: Ethan Rodriguez on 04-17-2024 Lactate dehydrogenase (LDH) measurement 237 U/L 84-246 [facility] MCV (RBC) [Entitic vol]Order ed By: Ethan Rodriguez on 04-17-2024 MCV (mean corpuscular volume) determination 93.5 fL 81-99 [facility] Manual differential comment Horace (Bld) [Interp]Ordered By: Ethan Rodriguez on 04-17-2024 Blood manual differential comment interpretation (narrative result) COMMENT [facility] Mean corpuscular hemoglobin (MCH) determinationOrdered By: Ethan Rodriguez on 04-17-2024 Mean corpuscular hemoglobin (MCH) determination 27.3 pg 27.0-32.0 [facility] Mean corpuscular hemoglobin concentration (MCHC) determinationOrdered By: Ethan Rodriguez on 04-17-2024 Mean corpuscular hemoglobin concentration (MCHC) determination 29.1 g/dL Low 32-36 [facility] Mean platelet volume determi nationOrdered By: Ethan Rodriguez on 04-17-2024 Mean platelet volume determination 9.8 fl 6.2-12.0 [facility] No Panel InformationOrdered By: Ethan Rodriguez on 04-17-2024 19 U/L 15-37 [facility] Platelet countOrdered By: Chester Rodriguez on 04-17-2024 Platelet count 92 K/mm3 Low 150-450 [facility] Potassium measurementOrdered By: Ethan Rodriguez on 04-17-2024 Potassium measurement 4.2 mmol/L 3.5-5.[address] [facility] RBC Auto (Bld) [#/Vol]Ordere d By: Ethan Rodriguez on 04-17-2024 Automated blood erythrocyte count 4.00 M/mm3 Low 4.2-5.4 [facility] Serum anion gap measurementO rdered By: Ethan Rodriguez on 04-17-2024 Serum anion gap measurement 6 5-15 [facility] Serum globulin measurementOr dered By: Ethan Rodriguez on 04-17-2024 Serum globulin measurement 4.0 g/dL 2.2-4.2 [facility] Sodium levelOrdered By: Ethan Rodriguez on 04-17-2024 Sodium level 137 mmol/L 136-145 [facility] Total proteinOrdered By: Ava Rodriguez on 04-17-2024 Total protein 5.7 g/dL Low 6.4-8.2 [facility] Urea nitrogen [Mass/Vol]Orde red By: Ethan Rodriguez on 04-17-2024 Serum or plasma urea nitrogen measurement (mass/volume) 38 mg/dL High 12-13 [facility] Venous blood ammonia measure mentOrdered By: Ethan Rodriguez on 04-17-2024 Venous blood ammonia measurement 22.0 umol/L [facility] White blood cell (WBC) count Ordered By: Ethan Rodriguez on 04-17-2024 White blood cell (WBC) count 5.5 K/mm3 4.4-11.0 [facility] C. difficile Ql (Stl)Ordered By: Ethan Rodriguez on 04-16-2024 Stool Clostridium difficile detection Toxigenic C. difficile Abnormal [facility] Miscellaneous procedureOrder ed By: Angie Torres on 04-15-2024 Miscellaneous procedure See comment [facility] CBC-Complete Blood Cnt No Di ffon 04-12-2024 Erythrocyte distribution width (RBC) [Ratio] 17.7 % High 11.6-14.6 [facility] Comment on above: Order Comment: 103-1 Performed By: #### L 500.4050, L100.0500 ####[facility] [address] [place], [address] Hematocrit (Bld) [Volume fraction] 36.0 % Low 37-47 [facility] Comment on above: Order Comment: 103-1 Performed By: #### L 500.4050, L100.0500 ####[facility] [address] [place], [address] Hemoglobin (Bld) [Mass/Vol] 10.7 g/dL Low 12.0-15.0 [facility] Comment on above: Order Comment: 103-1 Performed By: #### L 500.4050, L100.0500 ####[facility] [address] [place], [address] MCH (RBC) [Entitic mass] 27.3 pg Normal 27.0-32.0 [facility] Comment on above: Order Comment: 103-1 Performed By: #### L 500.4050, L100.0500 ####[facility] [address] [place], [address] MCHC (RBC) [Mass/Vol] 29.7 g/dL Low 32-[address] [facility] Comment on above: Order Comment: 103-1 Performed By: #### L 500.4050, L100.0500 ####[facility] [address] [place], [address] MCV (RBC) [Entitic vol] 91.8 fL Normal 81-99 [facility] Comment on above: Order Comment: 103-1 Performed By: #### L 500.4050, L100.0500 ####[facility] [address] [place], [address] Platelet mean volume (Bld) [Entitic vol] 9.2 fL Normal 6.2-12.0 [facility] Comment on above: Order Comment: 103-1 Performed By: #### L 500.4050, L100.0500 ####[facility] [address] [place], [address] Platelets (Bld) [#/Vol] 133 10*3/uL Low 150-450 [facility] Comment on above: Order Comment: 103-1 Performed By: #### L 500.4050, L100.0500 ####[facility] [address] [place], [address] RBC (Bld) [#/Vol] 3.92 10*6/uL Low 4.2-5.4 [facility] Comment on above: Order Comment: 103-1 Performed By: #### L 500.4050, L100.0500 ####[facility] [address] [place], [address] RDW SD 59.2 fl High 35.1-43.9 [facility] Comment on above: Order Comment: 103-1 Performed By: #### L 500.4050, L100.0500 ####[facility] [address] [place], [address] WBC (Bld) [#/Vol] 11.4 10*3/uL High 4.4-11.0 [facility] Comment on above: Order Comment: 103-1 Performed By: #### L 500.4050, L100.0500 ####[facility] [address] [place], [address] Comprehensive Metabolic Prof ilemma 04-12-2024 Albumin [Mass/Vol] 1.7 g/dL Low 3.2-5.0 [facility] Comment on above: Order Comment: 103-1 Performed By: #### L 500.4050, L100.0500 ####[facility] [address] [place], [address] Albumin/Globulin [Mass ratio] 0.4 {ratio} Low 0.9-2.4 [facility] Comment on above: Order Comment: 103-1 Performed By: #### L 500.4050, L100.0500 ####[facility] [address] [place], [address] ALK P 60 U/L Normal 45-117 [facility] Comment on above: Order Comment: 103-1 Performed By: #### L 500.4050, L100.0500 ####[facility] [address] [place], [address] ALT [Catalytic activity/Vol] 10 U/L Low 13-56 [facility] Comment on above: Order Comment: 103-1 Performed By: #### L 500.4050, L100.0500 ####[facility] [address] [place], [address] AST [Catalytic activity/Vol] 13 U/L Low 15-37 [facility] Comment on above: Order Comment: 103-1 Performed By: #### L 500.4050, L100.0500 ####[facility] [address] [place], [address] Bilirubin [Mass/Vol] 0.40 mg/dL Normal 0.20-1.00 [facility] Comment on above: Order Comment: 103-1 Result Comment: For patients on eltrombopag therapy, use of Dimension [place] TBIL is not recommended. Performed By: #### L 500.4050, L100.0500 ####[facility] [address] [place], [address] BUN/CRE 22.6 RATIO High 10-20 [facility] Comment on above: Order Comment: 103-1 Performed By: #### L 500.4050, L100.0500 ####[facility] [address] [place], [address] CA,Total 7.8 mg/dL Low 8.5-10.1 [facility] Comment on above: Order Comment: 103-1 Performed By: #### L 500.4050, L100.0500 ####[facility] [address] [place], [address] Chloride [Moles/Vol] 102 mmol/L Normal 98-107 [facility] Comment on above: Order Comment: 103-1 Performed By: #### L 500.4050, L100.0500 ####[facility] [address] [place], [address] CO2 [Moles/Vol] 28.0 mmol/L Normal 21.0-32.0 [facility] Comment on above: Order Comment: 103-1 Performed By: #### L 500.4050, L100.0500 ####[facility] [address] [place], [address] Creatinine [Mass/Vol] 2.35 mg/dL High 0.55-1.[address] [facility] Comment on above: Order Comment: 103- Result Comment: The validity of the calculated GFR GFRAA in patients over70 years has not been determined. Clinical correlation isessential. Performed By: #### L 500.4050, L100.0500 ####[facility] [address] [place], [address] EST GFR - AA 27 mL/min Low >60 [facility] Comment on above: Order Comment: 103- Result Comment: Afri can Bruneian GFR Calc Performed By: #### L 500.4050, L100.0500 ####[facility] [address] [place], [address] GAP 6 Normal 5-15 [facility] Comment on above: Order Comment: 103- Performed By: #### L 500.4050, L100.0500 ####[facility] [address] [place], [address] GFR/1.73 sq M.predicted among non-blacks MDRD (S/P/Bld) [Vol rate/Area] 22 mL/min/{1.73_m2} Low >60 [facility] Comment on above: Order Comment: 103- Result Comment: Non- GFR Calc Performed By: #### L 500.4050, L100.0500 ####[facility] [address] [place], [address] Globulin (S) [Mass/Vol] 4.0 g/dL Normal 2.2-4.2 [facility] Comment on above: Order Comment: 103-1 Performed By: #### L 500.4050, L100.0500 ####[facility] [address] [place], [address] Glucose [Mass/Vol] 88 mg/dL Normal 74-106 [facility] Comment on above: Order Comment: 103-1 Performed By: #### L 500.4050, L100.0500 ####[facility] [address] [place], [address] Potassium [Moles/Vol] 4.0 mmol/L Normal 3.5-5.[address] [facility] Comment on above: Order Comment: 103-1 Performed By: #### L 500.4050, L100.0500 ####[facility] [address] [place], [address] Sodium [Moles/Vol] 136 mmol/L Normal 136-145 [facility] Comment on above: Order Comment: 103-1 Performed By: #### L 500.4050, L100.0500 ####[facility] [address] [place], [address] T PROT 5.7 g/dL Low 6.4-8.2 [facility] Comment on above: Order Comment: 103-1 Performed By: #### L 500.4050, L100.0500 ####[facility] [address] [place], [address] Urea nitrogen [Mass/Vol] 53 mg/dL High 7-18 [facility] Comment on above: Order Comment: 103-1 Performed By: #### L 500.4050, L100.0500 ####[facility] [address] [place], [address] Urine Cultureon 04-12-2024 [facility] Presumptive C albica ns Hale Count 11,000-25,000 Normal [facility] Comment on above: Performed By: #### M 100.2200 ####[facility] [address] [place], [address] Abdomen/Pelvis without Conto n 04-11-2024 Abdomen/Pelvis without Cont Normal [facility] Basic Metabolic Profile (BMP )on 04-11-2024 BUN/CRE 18.3 RATIO Normal 10-20 [facility] Comment on above: Performed By: #### L 509.7000, L100.0100, L500.2500 ####[facility] [address] [place], [address] CA,Total 7.6 mg/dL Low 8.5-10.1 [facility] Comment on above: Performed By: #### L 509.7000, L100.0100, L500.2500 ####[facility] [address] [place], [address] Chloride [Moles/Vol] 100 mmol/L Normal 98-107 [facility] Comment on above: Performed By: #### L 509.7000, L100.0100, L500.2500 ####[facility] [address] [place], [address] CO2 [Moles/Vol] 31.0 mmol/L Normal 21.0-32.0 [facility] Comment on above: Performed By: #### L 509.7000, L100.0100, L500.2500 ####[facility] [address] [place], [address] Creatinine [Mass/Vol] 2.13 mg/dL High 0.55-1.[address] [facility] Comment on above: Result Comment: The validity of the calculated GFR GFRAA in patients over70 years has not been determined. Clinical correlation isessential. Performed By: #### L 509.7000, L100.0100, L500.2500 ####[facility] [address] [place], [address] ECRCL 23.69 ml/min Normal [facility] Comment on above: Performed By: #### L 509.7000, L100.0100, L500.2500 ####[facility] [address] [place], [address] EST GFR - AA 30 mL/min Low >60 [facility] Comment on above: Result Comment: Afri can [place]une[place] GFR Calc Performed By: #### L 509.7000, L100.0100, L500.2500 ####[facility] [address] [place], [address] GAP 5 Normal 5-15 [facility] Comment on above: Performed By: #### L 509.7000, L100.0100, L500.2500 ####[facility] [address] [place], [address] GFR/1.73 sq M.predicted among non-blacks MDRD (S/P/Bld) [Vol rate/Area] 25 mL/min/{1.73_m2} Low >60 [facility] Comment on above: Result Comment: Non- GFR Calc Performed By: #### L 509.7000, L100.0100, L500.2500 ####[facility] [address] [place], [address] Glucose [Mass/Vol] 87 mg/dL Normal 74-106 [facility] Comment on above: Performed By: #### L 509.7000, L100.0100, L500.2500 ####[facility] [address] [place], [address] Potassium [Moles/Vol] 3.9 mmol/L Normal 3.5-5.[address] [facility] Comment on above: Performed By: #### L 509.7000, L100.0100, L500.2500 ####[facility] [address] [place], [address] Sodium [Moles/Vol] 137 mmol/L Normal 136-145 [facility] Comment on above: Performed By: #### L 509.7000, L100.0100, L500.2500 ####[facility] [address] [place], [address] Urea nitrogen [Mass/Vol] 39 mg/dL High 7-18 [facility] Comment on above: Performed By: #### L 509.7000, L100.0100, L500.2500 ####[facility] [address] [place], [address] CBC W/Diff, Automatedon 03-29 PLT EST ADEQUATE Normal ADEQ [facility] Comment on above: Performed By: #### L 509.7000, L100.0100, L500.2500 ####[facility] [address] [place], [address] RED CELL MORPH NORM C+C Normal NORM C C [facility] Comment on above: Performed By: #### L 509.7000, L100.0100, L500.2500 ####[facility] [address] [place], [address] SMEAR COMMENT SCANNED Normal [facility] Comment on above: Result Comment: LEFT SHIFT: BANDS PRESENT 2+ Performed By: #### L 509.7000, L100.0100, L500.2500 ####[facility] [address] [place], [address] Chest 1 View (Portable)on Chest 1 View (Portable) Normal [facility] Emergency Department Summary on 04-11-2024 Emergency Department Summary Normal [facility] M100.678on 04-11-2024 M100.678 Pending SARS-CoV-2 (COVID 19) Negative INFLUENZA A Negative INFLUENZA B Negative RSV PCR Negative Normal [facility] Comment on above: Performed By: #### M 100.678 ####[facility] [address] [place], [address] Procalcitoninon 04-11-2024 Procalcitonin 0.62 ng/mL High 0.00-0.09 [facility] Comment on above: Result Comment: A [...] Performed By: #### L 509.7000, L100.0100, L500.2500 ####[facility] [address] [place], [address] Urinalysis, Completeon 04-11 BACTERIA 1+ /hpf Normal None Seen [facility] Comment on above: Order Comment: COLOR OF URINE MAY AFFECT DIPSTICK RESULTS.DAIRY FARMWORKER TO SPECIFY Performed By: #### L 400.0001 ####[facility] [address] [place], [address] RBC 0-5 SEEN Normal 0-5 [facility] Comment on above: Order Comment: COLOR OF URINE MAY AFFECT DIPSTICK RESULTS.DAIRY FARMWORKER TO SPECIFY Performed By: #### L 400.0001 ####[facility] [address] [place], [address] WBC 10-25 SEEN Normal 0-5 [facility] Comment on above: Order Comment: COLOR OF URINE MAY AFFECT DIPSTICK RESULTS.DAIRY FARMWORKER TO SPECIFY Performed By: #### L 400.0001 ####[facility] [address] [place], [address] EPI,SQUAMOUS 0 SEEN Normal 5-10 [facility] Comment on above: Order Comment: COLOR OF URINE MAY AFFECT DIPSTICK RESULTS.DAIRY FARMWORKER TO SPECIFY Performed By: #### L 400.0001 ####[facility] [address] [facility] [address] Mucus Ql (Urine sed) 0 SEEN Normal [facility] Comment on above: Order Comment: COLOR OF URINE MAY AFFECT DIPSTICK RESULTS.DAIRY FARMWORKER TO SPECIFY Performed By: #### L 400.0001 ####[facility] [address] [place], [address] Basic Metabolic Profile (BMP )on 04-04-2024 BUN/CRE 11.5 RATIO Normal 10-20 [facility] Comment on above: Order Comment: 103.1 Performed By: #### L 500.2500, L100.0500 ####[facility] [address] [place], [address] CA,Total 8.1 mg/dL Low 8.5-10.1 [facility] Comment on above: Order Comment: 103.1 Performed By: #### L 500.2500, L100.0500 ####[facility] [address], [address] Chloride [Moles/Vol] 99 mmol/L Normal 98-107 [facility] Comment on above: Order Comment: 103.1 Performed By: #### L 500.2500, L100.0500 ####[facility] [address], [address] CO2 [Moles/Vol] 33.0 mmol/L High 21.0-32.0 [facility] Comment on above: Order Comment: 103.1 Performed By: #### L 500.2500, L100.0500 ####[facility] [address], [address] Creatinine [Mass/Vol] 1.65 mg/dL High 0.55-1.[address] [facility] Comment on above: Order Comment: 103.1 Result Comment: The validity of the calculated GFR GFRAA in patients over70 years has not been determined. Clinical correlation isessential. Performed By: #### L 500.2500, L100.0500 ####[facility] [address] [place], [address] EST GFR - AA 41 mL/min Low >60 [facility] Comment on above: Order Comment: 103.1 Result Comment: Afri can Bruneian GFR Calc Performed By: #### L 500.2500, L100.0500 ####[facility] [address] [place], [address] GAP 5 Normal 5-15 [facility] Comment on above: Order Comment: 103.1 Performed By: #### L 500.2500, L100.0500 ####[facility] [address] [place], [address] GFR/1.73 sq M.predicted among non-blacks MDRD (S/P/Bld) [Vol rate/Area] 34 mL/min/{1.73_m2} Low >60 [facility] Comment on above: Order Comment: 103.1 Result Comment: Non- GFR Calc Performed By: #### L 500.2500, L100.0500 ####[facility] [address] [place], [address] Glucose [Mass/Vol] 61 mg/dL Low 74-106 [facility] Comment on above: Order Comment: 103.1 Performed By: #### L 500.2500, L100.0500 ####[facility] [address] [place], [address] Potassium [Moles/Vol] 3.7 mmol/L Normal 3.5-5.[address] [facility] Comment on above: Order Comment: 103.1 Performed By: #### L 500.2500, L100.0500 ####[facility] [address] [place], [address] Sodium [Moles/Vol] 137 mmol/L Normal 136-145 [facility] Comment on above: Order Comment: 103.1 Performed By: #### L 500.2500, L100.0500 ####[facility] [address] [place], [address] Urea nitrogen [Mass/Vol] 19 mg/dL High 7-18 [facility] Comment on above: Order Comment: 103.1 Performed By: #### L 500.2500, L100.0500 ####[facility] [address] [place], [address] CBC-Complete Blood Cnt No Di ffon 04-04-2024 Erythrocyte distribution width (RBC) [Ratio] 16.9 % High 11.6-14.6 [facility] Comment on above: Order Comment: 103.1 Performed By: #### L 500.2500, L100.0500 ####[facility] [address] [place], [address] Hematocrit (Bld) [Volume fraction] 35.8 % Low 37-47 [facility] Comment on above: Order Comment: 103.1 Performed By: #### L 500.2500, L100.0500 ####[facility] [address] [place], [address] Hemoglobin (Bld) [Mass/Vol] 10.0 g/dL Low 12.0-15.0 [facility] Comment on above: Order Comment: 103.1 Performed By: #### L 500.2500, L100.0500 ####[facility] [address] [place], [address] MCH (RBC) [Entitic mass] 27.3 pg Normal 27.0-32.0 [facility] Comment on above: Order Comment: 103.1 Performed By: #### L 500.2500, L100.0500 ####[facility] [address] [place], [address] MCHC (RBC) [Mass/Vol] 27.9 g/dL Low 32-[address] [facility] Comment on above: Order Comment: 103.1 Performed By: #### L 500.2500, L100.0500 ####[facility] [address] [place], [address] MCV (RBC) [Entitic vol] 97.8 fL Normal 81-99 [facility] Comment on above: Order Comment: 103.1 Performed By: #### L 500.2500, L100.0500 ####[facility] [address] [place], [address] Platelet mean volume (Bld) [Entitic vol] 9.9 fL Normal 6.2-12.0 [facility] Comment on above: Order Comment: 103.1 Performed By: #### L 500.2500, L100.0500 ####[facility] [address] [place], [address] Platelets (Bld) [#/Vol] 202 10*3/uL Normal 150-450 [facility] Comment on above: Order Comment: 103.1 Performed By: #### L 500.2500, L100.0500 ####[facility] [address] [place], [address] RBC (Bld) [#/Vol] 3.66 10*6/uL Low 4.2-5.4 [facility] Comment on above: Order Comment: 103.1 Performed By: #### L 500.2500, L100.0500 ####[facility] [address] [place], [address] RDW SD 61.3 fl High 35.1-43.9 [facility] Comment on above: Order Comment: 103.1 Performed By: #### L 500.2500, L100.0500 ####[facility] [address] [place], [address] WBC (Bld) [#/Vol] 11.4 10*3/uL High 4.4-11.0 [facility] Comment on above: Order Comment: 103.1 Performed By: #### L 500.2500, L100.0500 ####[facility] [address] [place], [address] Thyroid Stim Hormone (TSH)on 03-26-2024 TSH 20.500 uIU/mL High 0.358-3.74 0 [facility] Comment on above: Order Comment: 103.1 Performed By: #### L 501.9520 ####[facility] [address] [place], [address] OP NOTEon 03-22-2024 OP NOTE Normal [facility] Basic Metabolic Profile (BMP )on 03-21-2024 BUN/CRE 6.5 RATIO Low 03-17 [facility] Comment on above: Order Comment: 103.1 Performed By: #### L 500.2500, L100.0500 ####[facility] [address] [place], [address] CA,Total 9.1 mg/dL Normal 8.5-10.1 [facility] Comment on above: Order Comment: 103.1 Performed By: #### L 500.2500, L100.0500 ####[facility] [address] [place], [address] Chloride [Moles/Vol] 100 mmol/L Normal 98-107 [facility] Comment on above: Order Comment: 103.1 Performed By: #### L 500.2500, L100.0500 ####[facility] [address] [place], [address] CO2 [Moles/Vol] 30.0 mmol/L Normal 21.0-32.0 [facility] Comment on above: Order Comment: 103.1 Performed By: #### L 500.2500, L100.0500 ####[facility] [address] [place], [address] Creatinine [Mass/Vol] 1.85 mg/dL High 0.55-1.[address] [facility] Comment on above: Order Comment: 103.1 Result Comment: The validity of the calculated GFR GFRAA in patients over70 years has not been determined. Clinical correlation isessential. Performed By: #### L 500.2500, L100.0500 ####[facility] [address] [place], [address] EST GFR - AA 36 mL/min Low >60 [facility] Comment on above: Order Comment: 103.1 Result Comment: Afri can [place]uneian GFR Calc Performed By: #### L 500.2500, L100.0500 ####[facility] [address] [place], [address] GAP 3 Low 5-15 [facility] Comment on above: Order Comment: 103.1 Performed By: #### L 500.2500, L100.0500 ####[facility] [address] [place], [address] GFR/1.73 sq M.predicted among non-blacks MDRD (S/P/Bld) [Vol rate/Area] 29 mL/min/{1.73_m2} Low >60 [facility] Comment on above: Order Comment: 103.1 Result Comment: Non- GFR Calc Performed By: #### L 500.2500, L100.0500 ####[facility] [address] [place], [address] Glucose [Mass/Vol] 75 mg/dL Normal 74-106 [facility] Comment on above: Order Comment: 103.1 Performed By: #### L 500.2500, L100.0500 ####[facility] [address] [place], [address] Potassium [Moles/Vol] 4.5 mmol/L Normal 3.5-5.[address] [facility] Comment on above: Order Comment: 103.1 Performed By: #### L 500.2500, L100.0500 ####[facility] [address] [place], [address] Sodium [Moles/Vol] 133 mmol/L Low 136-145 [facility] Comment on above: Order Comment: 103.1 Performed By: #### L 500.2500, L100.0500 ####[facility] [address] [place], [address] Urea nitrogen [Mass/Vol] 12 mg/dL Normal 7-18 [facility] Comment on above: Order Comment: 103.1 Performed By: #### L 500.2500, L100.0500 ####[facility] [address] [place], [address] CBC-Complete Blood Cnt No Di ffon 03-21-2024 Erythrocyte distribution width (RBC) [Ratio] 21.2 % High 11.6-14.6 [facility] Comment on above: Order Comment: 103.1 Performed By: #### L 500.2500, L100.0500 ####[facility] [address] [place], [address] Hematocrit (Bld) [Volume fraction] 27.9 % Low 37-47 [facility] Comment on above: Order Comment: 103.1 Performed By: #### L 500.2500, L100.0500 ####[facility] [address] [place], [address] Hemoglobin (Bld) [Mass/Vol] 8.0 g/dL Low 12.0-15.0 [facility] Comment on above: Order Comment: 103.1 Performed By: #### L 500.2500, L100.0500 ####[facility] [address] [place], [address] MCH (RBC) [Entitic mass] 29.3 pg Normal 27.0-32.0 [facility] Comment on above: Order Comment: 103.1 Performed By: #### L 500.2500, L100.0500 ####[facility] [address] [place], [address] MCHC (RBC) [Mass/Vol] 28.7 g/dL Low 32-[address] [facility] Comment on above: Order Comment: 103.1 Performed By: #### L 500.2500, L100.0500 ####[facility] [address] [place], [address] MCV (RBC) [Entitic vol] 102.2 fL High 81-99 [facility] Comment on above: Order Comment: 103.1 Performed By: #### L 500.2500, L100.0500 ####[facility] [facility] [id number] [place], [address] Platelet mean volume (Bld) [Entitic vol] 9.9 fL Normal 6.2-12.0 [facility] Comment on above: Order Comment: 103.1 Performed By: #### L 500.2500, L100.0500 ####[facility] [address] [place], [address] Platelets (Bld) [#/Vol] 189 10*3/uL Normal 150-450 [facility] Comment on above: Order Comment: 103.1 Performed By: #### L 500.2500, L100.0500 ####[facility] [address] [place], [address] RBC (Bld) [#/Vol] 2.73 10*6/uL Low 4.2-5.4 [facility] Comment on above: Order Comment: 103.1 Performed By: #### L 500.2500, L100.0500 ####[facility] [address] [place], [address] RDW SD 77.0 fl High 35.1-43.9 [facility] Comment on above: Order Comment: 103.1 Performed By: #### L 500.2500, L100.0500 ####[facility] [address] [place], [address] WBC (Bld) [#/Vol] 5.7 10*3/uL Normal 4.4-11.0 [facility] Comment on above: Order Comment: 103.1 Performed By: #### L 500.2500, L100.0500 ####[facility] [address] [place], [address] Disch Summon 03-20-2024 Disch Summ Normal [facility] BASIC METABOLIC PANELon 02-27 Anion gap [Moles/Vol] 10 mmol/L Normal 10-20 [facility] Comment on above: Order Comment: [facility] has implemented the eGFR calculation approach that does not have a coefficient for race that conforms to the NKF-ASN Task Force Recommendations. Performed By: #### 4 6124 ####[facility] [address] [place] [address] 698[address] Glenn Gudino M.D. [id number] Calcium [Mass/Vol] 8.3 mg/dL Low 8.4-10.[address] [facility] Comment on above: Order Comment: [facility] has implemented the eGFR calculation approach that does not have a coefficient for race that conforms to the NKF-ASN Task Force Recommendations. Performed By: #### 4 6124 ####[facility] [address] [place] [address] 80207 Glenn Gudino M.D. [id number] Chloride [Moles/Vol] 98 mmol/L Normal 98-108 [facility] Comment on above: Order Comment: [facility] has implemented the eGFR calculation approach that does not have a coefficient for race that conforms to the NKF-ASN Task Force Recommendations. Performed By: #### 4 6124 ####[facility] [address] [place] [address] 83982 Glenn Gudino M.D. [id number] Creatinine [Mass/Vol] 1.32 mg/dL High 0.60-1.10 [facility] Comment on above: Order Comment: [facility] has implemented the eGFR calculation approach that does not have a coefficient for race that conforms to the NKF-ASN Task Force Recommendations. Performed By: #### 4 6124 ####[facility] [address] [place] [address]64[address] Glenn Gudino M.D. [id number] EGFR 46 mL/min/1.73 m2 Low >=60 [facility] Comment on above: Order Comment: [facility] has implemented the eGFR calculation approach that does not have a coefficient for race that conforms to the NKF-ASN Task Force Recommendations. Result Comment: Joi mated GFR was calculated using the 2020 CKD-EPI creatinine equation. Performed By: #### 4 6124 ####[facility] [address] [place] [address] 82772 Glenn Gudino M.D. [id number] Glucose [Mass/Vol] 76 mg/dL Normal 65-[address] [facility] Comment on above: Order Comment: [facility] has implemented the eGFR calculation approach that does not have a coefficient for race that conforms to the NKF-ASN Task Force Recommendations. Performed By: #### 4 6124 ####[facility] [address] [place] [address] 24607 Glenn Gudino M.D. [id number] HCO3 (Bld) [Moles/Vol] 30 mmol/L Normal 21-32 [facility] Comment on above: Order Comment: [facility] has implemented the eGFR calculation approach that does not have a coefficient for race that conforms to the NKF-ASN Task Force Recommendations. Performed By: #### 4 6124 ####[facility] [address] [place] [address] 06867 Glenn Gudino M.D. [id number] Potassium [Moles/Vol] 4.3 mmol/L Normal 3.5-5.1 [facility] Comment on above: Order Comment: [facility] has implemented the eGFR calculation approach that does not have a coefficient for race that conforms to the NKF-ASN Task Force Recommendations. Result Comment: Morganig htly Hemolyzed Performed By: #### 4 6124 ####[facility] [address] [place] [address] 58949 Glenn Gudino M.D. [id number] Sodium [Moles/Vol] 134 mmol/L Low 135-[address] [facility] Comment on above: Order Comment: [facility] has implemented the eGFR calculation approach that does not have a coefficient for race that conforms to the NKF-ASN Task Force Recommendations. Performed By: #### 4 6124 ####[facility] [address] [place] [address] 05000 Glenn Gudino M.D. [id number] Urea nitrogen [Mass/Vol] 12 mg/dL Normal 8-25 [facility] Comment on above: Order Comment: [facility] has implemented the eGFR calculation approach that does not have a coefficient for race that conforms to the NKF-ASN Task Force Recommendations. Performed By: #### 4 6124 ####[facility] [address] [place] [address] 35594 Glenn Gudino M.D. [id number] Urea nitrogen/Creatinine [Mass ratio] 9.1 mg/mg Low 10.0-20.0 [facility] Comment on above: Order Comment: [facility] has implemented the eGFR calculation approach that does not have a coefficient for race that conforms to the NKF-ASN Task Force Recommendations. Performed By: #### 4 6124 ####[facility] [address] [place] [address] 24724 Glenn Gudino M.D. [id number] CBCon 03-19-2024 AUTO NRBC 0.0 % Normal [facility] Comment on above: Performed By: #### 4 [id number] ####[facility] [address] [place] [address] 20752 Glenn Gudino M.D. [id number] AUTO NRBC ABS COUNT 0.00 K/mcL Normal 0.00-0.00 [facility] Comment on above: Performed By: #### 4 [id number] ####[facility] [address] [place], [place] [address] Glenn Gudino M.D. [id number] Erythrocyte distribution width (RBC) [Ratio] 21.2 % High 11.6-14.8 [facility] Comment on above: Performed By: #### 4 [id number] ####[facility] [address] [place] [address] Glenn Gudino M.D. [id number] Hematocrit (Bld) [Volume fraction] 27.5 % Low 36.0-46.0 [facility] Comment on above: Performed By: #### 4 [id number] ####[facility] [address] [place] [address] Glenn Gudino M.D. [id number] Hemoglobin (Bld) [Mass/Vol] 8.3 g/dL Low 12.0-16.0 [facility] Comment on above: Performed By: #### 4 [id number] ####[facility] [address] [place], [place] [address] Glenn Gudino M.D. [id number] MCH (RBC) [Entitic mass] 29.9 pg Normal 26.0-34.0 [facility] Comment on above: Performed By: #### 4 [id number] ####[facility] [address] [place], [place] [address] Glenn Gudino M.D. [id number] MCV (RBC) [Entitic vol] 98.9 fL Normal 80.0-100.0 [facility] Comment on above: Performed By: #### 4 2957 ####[facility] [address] [place], [place] [address] Glenn Gudino M.D. [id number] MEAN CORPUSCULAR HEMOGLOBIN CONC 30.2 g/dL Low 31.0-37.0 [facility] Comment on above: Performed By: #### 4 [id number] ####[facility] [address] [place] [address] 32314 Glenn Gudino M.D. [id number] Platelet mean volume (Bld) [Entitic vol] 9.8 fL Normal 9.4-12.4 [facility] Comment on above: Performed By: #### 4 [id number] ####[facility] [address] [place] [address] 22344 Glenn Gudino M.D. [id number] Platelets (Bld) [#/Vol] 156 10*3/uL Normal 150-400 [facility] Comment on above: Performed By: #### 4 [id number] ####[facility] [address] [place] [address] 85056 Glenn Gudino M.D. [id number] RBC (Bld) [#/Vol] 2.78 10*6/uL Low 4.00-5.20 [facility] Comment on above: Performed By: #### 4 [id number] ####[facility] [address] [place] [address] 09182 Glenn Gudino M.D. [id number] WBC (Bld) [#/Vol] 6.81 10*3/uL Normal 4.50-11.00 [facility] Comment on above: Performed By: #### 4 [id number] ####[facility] [address] [place] [address] 64561 Glenn Gudino M.D. [id number] BASIC METABOLIC PANELon 10-2 Anion gap [Moles/Vol] 11 mmol/L Normal 10-20 [facility] Comment on above: Order Comment: [facility] has implemented the eGFR calculation approach that does not have a coefficient for race that conforms to the NKF-ASN Task Force Recommendations. Performed By: #### 4 6124 ####[facility] [address] [place] [address] 56347 Glenn Gudino M.D. [id number] Calcium [Mass/Vol] 8.6 mg/dL Normal 8.4-10.[address] [facility] Comment on above: Order Comment: [facility] has implemented the eGFR calculation approach that does not have a coefficient for race that conforms to the NKF-ASN Task Force Recommendations. Performed By: #### 4 6124 ####[facility] [address] [place] [address] 06750 Glenn Gudino M.D. [id number] Chloride [Moles/Vol] 97 mmol/L Low 98-108 [facility] Comment on above: Order Comment: [facility] has implemented the eGFR calculation approach that does not have a coefficient for race that conforms to the NKF-ASN Task Force Recommendations. Performed By: #### 4 6124 ####[facility] [address] [place] [address] 57996 Glenn Gudino M.D. [id number] Creatinine [Mass/Vol] 2.55 mg/dL High 0.60-1.10 [facility] Comment on above: Order Comment: [facility] has implemented the eGFR calculation approach that does not have a coefficient for race that conforms to the NKF-ASN Task Force Recommendations. Performed By: #### 4 6124 ####[facility] [address] [place] [address] 99590 Glenn Gudino M.D. [id number] EGFR 21 mL/min/1.73 m2 Low >=60 [facility] Comment on above: Order Comment: [facility] has implemented the eGFR calculation approach that does not have a coefficient for race that conforms to the NKF-ASN Task Force Recommendations. Result Comment: Joi mated GFR was calculated using the 2020 CKD-EPI creatinine equation. Performed By: #### 4 6124 ####[facility] [address] [place] [address] 47519 Glenn Gudino M.D. [id number] Glucose [Mass/Vol] 84 mg/dL Normal 65-[address] [facility] Comment on above: Order Comment: [facility] has implemented the eGFR calculation approach that does not have a coefficient for race that conforms to the NKF-ASN Task Force Recommendations. Performed By: #### 4 6124 ####[facility] [address] [place] [address] 01131 Glenn Gudino M.D. [id number] HCO3 (Bld) [Moles/Vol] 29 mmol/L Normal 21-32 [facility] Comment on above: Order Comment: [facility] has implemented the eGFR calculation approach that does not have a coefficient for race that conforms to the NKF-ASN Task Force Recommendations. Performed By: #### 4 6124 ####[facility] [address] [place] [address] 77156 Glenn Gudino M.D. [id number] Potassium [Moles/Vol] 4.2 mmol/L Normal 3.5-5.1 [facility] Comment on above: Order Comment: [facility] has implemented the eGFR calculation approach that does not have a coefficient for race that conforms to the NKF-ASN Task Force Recommendations. Performed By: #### 4 6124 ####[facility] [address] [place] [address] 46768 Glenn Gudino M.D. [id number] Sodium [Moles/Vol] 133 mmol/L Low 135-[address] [facility] Comment on above: Order Comment: [facility] has implemented the eGFR calculation approach that does not have a coefficient for race that conforms to the NKF-ASN Task Force Recommendations. Performed By: #### 4 6136 ####[facility] [address] [place] [address] 48051 Glenn Gudino M.D. [id number] Urea nitrogen [Mass/Vol] 22 mg/dL Normal 8-25 [facility] Comment on above: Order Comment: [facility] has implemented the eGFR calculation approach that does not have a coefficient for race that conforms to the NKF-ASN Task Force Recommendations. Performed By: #### 4 6124 ####[facility] [address] [place], [place] [address] Glenn Gudino M.D. [id number] Urea nitrogen/Creatinine [Mass ratio] 8.6 mg/mg Low 10.0-20.0 [facility] Comment on above: Order Comment: [facility] has implemented the eGFR calculation approach that does not have a coefficient for race that conforms to the NKF-ASN Task Force Recommendations. Performed By: #### 4 6124 ####[facility] [address] [place] [address] Glenn Gudino M.D. [id number] CBCon 03-18-2024 AUTO NRBC 0.0 % Normal [facility] Comment on above: Performed By: #### 4 [id number] ####[facility] [address] [place], [place] [address] Glenn Gudino M.D. [id number] AUTO NRBC ABS COUNT 0.00 K/mcL Normal 0.00-0.00 [facility] Comment on above: Performed By: #### 4 [id number] ####[facility] [address] [place], [place] [address] Glenn Gudino M.D. [id number] Erythrocyte distribution width (RBC) [Ratio] 20.8 % High 11.6-14.8 [facility] Comment on above: Performed By: #### 4 [id number] ####[facility] [address] [place], [place] [address] Glenn Gudino M.D. [id number] Hematocrit (Bld) [Volume fraction] 26.6 % Low 36.0-46.0 [facility] Comment on above: Performed By: #### 4 [id number] ####[facility] [address] [place] [address] 92553 Glenn Gudino M.D. [id number] Hemoglobin (Bld) [Mass/Vol] 8.1 g/dL Low 12.0-16.0 [facility] Comment on above: Performed By: #### 4 [id number] ####[facility] [address] [place], [place] [address] Glenn Gudino M.D. [id number] MCH (RBC) [Entitic mass] 29.9 pg Normal 26.0-34.0 [facility] Comment on above: Performed By: #### 4 [id number] ####[facility] [address] [place] [address] Glenn Gudino M.D. [id number] MCV (RBC) [Entitic vol] 98.2 fL Normal 80.0-100.0 [facility] Comment on above: Performed By: #### 4 [id number] ####[facility] [address] [place], [place] [address] Glenn Gudino M.D. [id number] MEAN CORPUSCULAR HEMOGLOBIN CONC 30.5 g/dL Low 31.0-37.0 [facility] Comment on above: Performed By: #### 4 [id number] ####[facility] [address] [place], [place] [address] Glenn Gudino M.D. [id number] Platelet mean volume (Bld) [Entitic vol] 9.6 fL Normal 9.4-12.4 [facility] Comment on above: Performed By: #### 4 [id number] ####[facility] [address] [place], [place] [address] Glenn Gudino M.D. [id number] Platelets (Bld) [#/Vol] 167 10*3/uL Normal 150-400 [facility] Comment on above: Performed By: #### 4 [id number] ####[facility] [address] [place] [address] 66132 Glenn Gudino M.D. [id number] RBC (Bld) [#/Vol] 2.71 10*6/uL Low 4.00-5.20 [facility] Comment on above: Performed By: #### 4 [id number] ####[facility] [address] [place] [address] 85310 Glenn Gudino M.D. [id number] WBC (Bld) [#/Vol] 6.74 10*3/uL Normal 4.50-11.00 [facility] Comment on above: Performed By: #### 4 [id number] ####[facility] [address] [place] [address] 96336 Glenn Gudino M.D. [id number] BASIC METABOLIC PANELon 10-2 0-2023 Anion gap [Moles/Vol] 12 mmol/L Normal 10-20 [facility] Comment on above: Order Comment: [facility] has implemented the eGFR calculation approach that does not have a coefficient for race that conforms to the NKF-ASN Task Force Recommendations. Performed By: #### 4 6124 ####[facility] [address] [place] [address] 46596 Glenn Gudino M.D. [id number] Calcium [Mass/Vol] 8.3 mg/dL Low 8.4-10.[address] [facility] Comment on above: Order Comment: [facility] has implemented the eGFR calculation approach that does not have a coefficient for race that conforms to the NKF-ASN Task Force Recommendations. Performed By: #### 4 6124 ####[facility] [address] [place] [address] 19606 Glenn Gudino M.D. [id number] Chloride [Moles/Vol] 95 mmol/L Low 98-108 [facility] Comment on above: Order Comment: [facility] has implemented the eGFR calculation approach that does not have a coefficient for race that conforms to the NKF-ASN Task Force Recommendations. Performed By: #### 4 6124 ####[facility] [address] [place] [address] 08425 Glenn Gudino M.D. [id number] Creatinine [Mass/Vol] 1.69 mg/dL High 0.60-1.10 [facility] Comment on above: Order Comment: [facility] has implemented the eGFR calculation approach that does not have a coefficient for race that conforms to the NKF-ASN Task Force Recommendations. Performed By: #### 4 6124 ####[facility] [address] [place] [address] 04793 Glenn Gudino M.D. [id number] EGFR 34 mL/min/1.73 m2 Low >=60 [facility] Comment on above: Order Comment: [facility] has implemented the eGFR calculation approach that does not have a coefficient for race that conforms to the NKF-ASN Task Force Recommendations. Result Comment: Joi mated GFR was calculated using the 2020 CKD-EPI creatinine equation. Performed By: #### 4 6124 ####[facility] [address] [place] [address] 82809 Glenn Gudino M.D. [id number] Glucose [Mass/Vol] 112 mg/dL High 65-[address] [facility] Comment on above: Order Comment: [facility] has implemented the eGFR calculation approach that does not have a coefficient for race that conforms to the NKF-ASN Task Force Recommendations. Performed By: #### 4 6124 ####[facility] [address] [place] [address] 39446 Glenn Gudino M.D. [id number] HCO3 (Bld) [Moles/Vol] 28 mmol/L Normal 21-32 [facility] Comment on above: Order Comment: [facility] has implemented the eGFR calculation approach that does not have a coefficient for race that conforms to the NKF-ASN Task Force Recommendations. Performed By: #### 4 6124 ####[facility] [address] [place] [address] 63065 Glenn Gudino M.D. [id number] Potassium [Moles/Vol] 3.9 mmol/L Normal 3.5-5.1 [facility] Comment on above: Order Comment: [facility] has implemented the eGFR calculation approach that does not have a coefficient for race that conforms to the NKF-ASN Task Force Recommendations. Result Comment: Slig htly Hemolyzed Performed By: #### 4 6124 ####[facility] [address] [place] [address] 70100 Glenn Gudino M.D. [id number] Sodium [Moles/Vol] 131 mmol/L Low 135-[address] [facility] Comment on above: Order Comment: [facility] has implemented the eGFR calculation approach that does not have a coefficient for race that conforms to the NKF-ASN Task Force Recommendations. Performed By: #### 4 6124 ####[facility] [address] [place] [address] 36998 Glenn Gudino M.D. [id number] Urea nitrogen [Mass/Vol] 16 mg/dL Normal 8-25 [facility] Comment on above: Order Comment: [facility] has implemented the eGFR calculation approach that does not have a coefficient for race that conforms to the NKF-ASN Task Force Recommendations. Performed By: #### 4 6124 ####[facility] [address] [place] [address] 28065 Glenn Gudino M.D. [id number] Urea nitrogen/Creatinine [Mass ratio] 9.5 mg/mg Low 10.0-20.0 [facility] Comment on above: Order Comment: [facility] has implemented the eGFR calculation approach that does not have a coefficient for race that conforms to the NKF-ASN Task Force Recommendations. Performed By: #### 4 6124 ####[facility] [address] [place] [address] 92757 Glenn Gudino M.D. [id number] CBCon 03-17-2024 AUTO NRBC 0.0 % Normal [facility] Comment on above: Performed By: #### 4 [id number] ####[facility] [address] [place], [place] [address] Glenn Gudino M.D. [id number] AUTO NRBC ABS COUNT 0.00 K/mcL Normal 0.00-0.00 [facility] Comment on above: Performed By: #### 4 [id number] ####[facility] [address] [place] [address] Glenn Gudino M.D. [id number] Erythrocyte distribution width (RBC) [Ratio] 20.9 % High 11.6-14.8 [facility] Comment on above: Performed By: #### 4 [id number] ####[facility] [address] [place] [address] Glenn Gudino M.D. [id number] Hematocrit (Bld) [Volume fraction] 24.7 % Low 36.0-46.0 [facility] Comment on above: Performed By: #### 4 [id number] ####[facility] [address] [place], [place] [address]Karma Gudino M.D. [id number] Hemoglobin (Bld) [Mass/Vol] 7.5 g/dL Low 12.0-16.0 [facility] Comment on above: Performed By: #### 4 [id number] ####[facility] [address] [place], [place] [address] Glenn Gudino M.D. [id number] MCH (RBC) [Entitic mass] 29.1 pg Normal 26.0-34.0 [facility] Comment on above: Performed By: #### 4 [id number] ####[facility] [address] [place], [place] [id number] Glenn Gudino M.D. [id number] MCV (RBC) [Entitic vol] 95.7 fL Normal 80.0-100.0 [facility] Comment on above: Performed By: #### 4 [id number] ####[facility] [address] [place], [place] [address] Glenn Gudino M.D. [id number] MEAN CORPUSCULAR HEMOGLOBIN CONC 30.4 g/dL Low 31.0-37.0 [facility] Comment on above: Performed By: #### 4 [id number] ####[facility] [address] [place] [address] Glenn Gudino M.D. [id number] Platelet mean volume (Bld) [Entitic vol] 9.4 fL Normal 9.4-12.4 [facility] Comment on above: Performed By: #### 4 [id number] ####[facility] [address] [place], [place] [id number] Glenn Gudino M.D. [id number] Platelets (Bld) [#/Vol] 164 10*3/uL Normal 150-400 [facility] Comment on above: Performed By: #### 4 [id number] ####[facility] [address] [place], [place] [id number] Glenn Gudino M.D. [id number] RBC (Bld) [#/Vol] 2.58 10*6/uL Low 4.00-5.20 [facility] Comment on above: Performed By: #### 4 [id number] ####[facility] [address] [place], [place] [id number] Glenn Gudino M.D. [id number] WBC (Bld) [#/Vol] 6.69 10*3/uL Normal 4.50-11.00 [facility] Comment on above: Performed By: #### 4 [id number] ####[facility] [address] [place], [place] [id number] Glenn Gudino M.D. [id number] BASIC METABOLIC PANELon 10-1 Anion gap [Moles/Vol] 15 mmol/L Normal 10-20 [facility] Comment on above: Order Comment: [facility] has implemented the eGFR calculation approach that does not have a coefficient for race that conforms to the NKF-ASN Task Force Recommendations. Performed By: #### 4 6124 ####[facility] [address] [place] [address] 06[address] Glenn Gudino M.D. [id number] Calcium [Mass/Vol] 8.5 mg/dL Normal 8.4-10.[address] [facility] Comment on above: Order Comment: [facility] has implemented the eGFR calculation approach that does not have a coefficient for race that conforms to the NKF-ASN Task Force Recommendations. Performed By: #### 4 6124 ####[facility] [address] [place], [place] [id number] Glenn Gudino M.D. [id number] Chloride [Moles/Vol] 97 mmol/L Low 98-108 [facility] Comment on above: Order Comment: [facility] has implemented the eGFR calculation approach that does not have a coefficient for race that conforms to the NKF-ASN Task Force Recommendations. Performed By: #### 4 6124 ####[facility] [address] [place] [address] 978[address] Glenn Gudino M.D. [id number] Creatinine [Mass/Vol] 2.74 mg/dL High 0.60-1.10 [facility] Comment on above: Order Comment: [facility] has implemented the eGFR calculation approach that does not have a coefficient for race that conforms to the NKF-ASN Task Force Recommendations. Performed By: #### 4 6124 ####[facility] [address] [place], [place] [id number] Glenn uGdino M.D. [id number] EGFR 19 mL/min/1.73 m2 Low >=60 [facility] Comment on above: Order Comment: [facility] has implemented the eGFR calculation approach that does not have a coefficient for race that conforms to the NKF-ASN Task Force Recommendations. Result Comment: Joi mated GFR was calculated using the 2020 CKD-EPI creatinine equation. Performed By: #### 4 6124 ####[facility] [address] [place] [address] 78185 Glenn Gudino M.D. [id number] Glucose [Mass/Vol] 84 mg/dL Normal 65-[address] [facility] Comment on above: Order Comment: [facility] has implemented the eGFR calculation approach that does not have a coefficient for race that conforms to the NKF-ASN Task Force Recommendations. Performed By: #### 4 6124 ####[facility] [address] [place] [address] 10389 Glenn Gudino M.D. [id number] HCO3 (Bld) [Moles/Vol] 27 mmol/L Normal 21-32 [facility] Comment on above: Order Comment: [facility] has implemented the eGFR calculation approach that does not have a coefficient for race that conforms to the NKF-ASN Task Force Recommendations. Performed By: #### 4 6124 ####[facility] [address] [place] [address] 765[address] Glenn Gudino M.D. [id number] Potassium [Moles/Vol] 4.5 mmol/L Normal 3.5-5.1 [facility] Comment on above: Order Comment: [facility] has implemented the eGFR calculation approach that does not have a coefficient for race that conforms to the NKF-ASN Task Force Recommendations. Result Comment: Slig htly Hemolyzed Performed By: #### 4 6168 ####[facility] [address] [place] [address] 90781 Glenn Gudino M.D. [id number] Sodium [Moles/Vol] 134 mmol/L Low 135-[address] [facility] Comment on above: Order Comment: [facility] has implemented the eGFR calculation approach that does not have a coefficient for race that conforms to the NKF-ASN Task Force Recommendations. Performed By: #### 4 6124 ####[facility] [address] [place] [address] 3[address] Glenn Gudino M.D. [id number] Urea nitrogen [Mass/Vol] 32 mg/dL High 8- [facility] Comment on above: Order Comment: [facility] has implemented the eGFR calculation approach that does not have a coefficient for race that conforms to the NKF-ASN Task Force Recommendations. Performed By: #### 4 6124 ####[facility] [address] [place] [address] 25583 Glenn Gudino M.D. [id number] Urea nitrogen/Creatinine [Mass ratio] 11.7 mg/mg Normal 10.0-20.0 [facility] Comment on above: Order Comment: [facility] has implemented the eGFR calculation approach that does not have a coefficient for race that conforms to the NKF-ASN Task Force Recommendations. Performed By: #### 4 6124 ####[facility] [address] [place] [address] 14960 Glenn Gudino M.D. [id number] PHOSPHORUSon 03-16-2024 Phosphate [Mass/Vol] 3.9 mg/dL Normal 2.8-4.1 [facility] Comment on above: Performed By: #### 4 6299 ####[facility] [address] [place] [address] 26518 Glenn Gudino M.D. [id number] BASIC METABOLIC PANELon 02-26 Anion gap [Moles/Vol] 14 mmol/L Normal - [facility] Comment on above: Order Comment: [facility] has implemented the eGFR calculation approach that does not have a coefficient for race that conforms to the NKF-ASN Task Force Recommendations. Performed By: #### 4 6129 ####[facility] [address] [place] [address] 06399 Glenn Gudino M.D. [id number] Calcium [Mass/Vol] 8.3 mg/dL Low 8.4-10.[address] [facility] Comment on above: Order Comment: [facility] has implemented the eGFR calculation approach that does not have a coefficient for race that conforms to the NKF-ASN Task Force Recommendations. Performed By: #### 4 6124 ####[facility] [address] [place] [address] 09162 Glenn Gudino M.D. [id number] Chloride [Moles/Vol] 96 mmol/L Low 98-108 [facility] Comment on above: Order Comment: [facility] has implemented the eGFR calculation approach that does not have a coefficient for race that conforms to the NKF-ASN Task Force Recommendations. Performed By: #### 4 6124 ####[facility] [address] [place] [address] Glenn Gudino M.D. [id number] Creatinine [Mass/Vol] 2.29 mg/dL High 0.60-1.10 [facility] Comment on above: Order Comment: [facility] has implemented the eGFR calculation approach that does not have a coefficient for race that conforms to the NKF-ASN Task Force Recommendations. Performed By: #### 4 6124 ####[facility] [address] [place], [place] [id number] Glenn Gudino M.D. [id number] EGFR 24 mL/min/1.73 m2 Low >=60 [facility] Comment on above: Order Comment: [facility] has implemented the eGFR calculation approach that does not have a coefficient for race that conforms to the NKF-ASN Task Force Recommendations. Result Comment: Joi mated GFR was calculated using the 2020 CKD-EPI creatinine equation. Performed By: #### 4 6124 ####[facility] [address] [place], [place] [address] Glenn Gudino M.D. [id number] Glucose [Mass/Vol] 74 mg/dL Normal 65-[address] [facility] Comment on above: Order Comment: [facility] has implemented the eGFR calculation approach that does not have a coefficient for race that conforms to the NKF-ASN Task Force Recommendations. Performed By: #### 4 6124 ####[facility] [address] [place], [place] [id number] Glenn Gudino M.D. [id number] HCO3 (Bld) [Moles/Vol] 27 mmol/L Normal 21-32 [facility] Comment on above: Order Comment: [facility] has implemented the eGFR calculation approach that does not have a coefficient for race that conforms to the NKF-ASN Task Force Recommendations. Performed By: #### 4 6124 ####[facility] [address] [place], [place] [address] Glenn Gudino M.D. [id number] Potassium [Moles/Vol] 4.4 mmol/L Normal 3.5-5.1 [facility] Comment on above: Order Comment: [facility] has implemented the eGFR calculation approach that does not have a coefficient for race that conforms to the NKF-ASN Task Force Recommendations. Result Comment: Slig htly Hemolyzed Performed By: #### 4 6124 ####[facility] [address] [place], [place] [id number] Glenn Gudino M.D. [id number] Sodium [Moles/Vol] 133 mmol/L Low 135-[address] [facility] Comment on above: Order Comment: [facility] has implemented the eGFR calculation approach that does not have a coefficient for race that conforms to the NKF-ASN Task Force Recommendations. Performed By: #### 4 6124 ####[facility] [address] [place] [address] 38777 Glenn Gudino M.D. [id number] Urea nitrogen [Mass/Vol] 23 mg/dL Normal 8-25 [facility] Comment on above: Order Comment: [facility] has implemented the eGFR calculation approach that does not have a coefficient for race that conforms to the NKF-ASN Task Force Recommendations. Performed By: #### 4 6124 ####[facility] [address] [place] [address] Glenn Gudino M.D. [id number] Urea nitrogen/Creatinine [Mass ratio] 10.0 mg/mg Normal 10.0-20.0 [facility] Comment on above: Order Comment: [facility] has implemented the eGFR calculation approach that does not have a coefficient for race that conforms to the NKF-ASN Task Force Recommendations. Performed By: #### 4 6124 ####[facility] [address] [place] [address] Glenn Gudino M.D. [id number] CBCon 03-15-2024 AUTO NRBC 0.0 % Normal [facility] Comment on above: Performed By: #### 4 [id number] ####[facility] [address] [place], [place] [id number] Glenn Gudino M.D. [id number] AUTO NRBC ABS COUNT 0.00 K/mcL Normal 0.00-0.00 [facility] Comment on above: Performed By: #### 4 [id number] ####[facility] [address] [place], [place] [id number] Glenn Gudino M.D. [id number] Erythrocyte distribution width (RBC) [Ratio] 20.6 % High 11.6-14.8 [facility] Comment on above: Performed By: #### 4 [id number] ####[facility] [address] [place], [place] [id number] Glenn Gudino M.D. [id number] Hematocrit (Bld) [Volume fraction] 27.4 % Low 36.0-46.0 [facility] Comment on above: Performed By: #### 4 [id number] ####[facility] [address] [place], [place] [id number] Glenn Gudino M.D. [id number] Hemoglobin (Bld) [Mass/Vol] 8.7 g/dL Low 12.0-16.0 [facility] Comment on above: Performed By: #### 4 [id number] ####[facility] [address] [place] [address] Glenn Gudino M.D. [id number] MCH (RBC) [Entitic mass] 29.3 pg Normal 26.0-34.0 [facility] Comment on above: Performed By: #### 4 [id number] ####[facility] [address] [place] [address] Glenn Gudino M.D. [id number] MCV (RBC) [Entitic vol] 92.3 fL Normal 80.0-100.0 [facility] Comment on above: Result Comment: Resu lts checked Performed By: #### 4 [id number] ####[facility] [address] [place], [place] [id number] Glenn Gudino M.D. [id number] MEAN CORPUSCULAR HEMOGLOBIN CONC 31.8 g/dL Normal 31.0-37.0 [facility] Comment on above: Performed By: #### 4 [id number] ####[facility] [address] [place] [address] Glenn Gudino M.D. [id number] Platelet mean volume (Bld) [Entitic vol] 10.0 fL Normal 9.4-12.4 [facility] Comment on above: Performed By: #### 4 [id number] ####[facility] [address] [place], [place] [id number] Glenn Gudino M.D. [id number] Platelets (Bld) [#/Vol] 196 10*3/uL Normal 150-400 [facility] Comment on above: Performed By: #### 4 [id number] ####[facility] [address] [place] [address] 42865 Glenn Gudino M.D. [id number] RBC (Bld) [#/Vol] 2.97 10*6/uL Low 4.00-5.20 [facility] Comment on above: Performed By: #### 4 [id number] ####[facility] [address] [place] [address] 58258 Glenn Gudino M.D. [id number] WBC (Bld) [#/Vol] 7.75 10*3/uL Normal 4.50-11.00 [facility] Comment on above: Performed By: #### 4 [id number] ####[facility] [address] [place] [address] 59628 Glenn Gudino M.D. [id number] MAGNESIUM LEVELon 03-15-2024 Magnesium [Mass/Vol] 1.7 mg/dL Normal 1.6-2.4 [facility] Comment on above: Performed By: #### 4 6109 ####[facility] [address] [place] [address] 96399 Glenn Gudino M.D. [id number] XR CHEST PA/APon 03-15-2024 XR CHEST PA/AP Normal [facility] Comment on above: Order Comment: Injur y/Trauma or Illness?:Illness/OtherHow long have you had these symptoms (acute/chronic)?:AcuteReason for exam?:follow upHistory of cancer?:uSurgeries, chemotherapy, or radiation?:uType of Exam?:Subsequent/Follow-upAdditional signs and symptoms?:. BASIC METABOLIC PANELon 02-26 Anion gap [Moles/Vol] 14 mmol/L Normal 03-17 [facility] Comment on above: Order Comment: [facility] has implemented the eGFR calculation approach that does not have a coefficient for race that conforms to the NKF-ASN Task Force Recommendations. Performed By: #### 4 6124 ####[facility] [address] [place] [address] 61028 Glenn Gudino M.D. [id number] Calcium [Mass/Vol] 8.4 mg/dL Normal 8.4-10.[address] [facility] Comment on above: Order Comment: [facility] has implemented the eGFR calculation approach that does not have a coefficient for race that conforms to the NKF-ASN Task Force Recommendations. Performed By: #### 4 6124 ####[facility] [address] [place] [address] 64220 Glenn Gudino M.D. [id number] Chloride [Moles/Vol] 99 mmol/L Normal 98-108 [facility] Comment on above: Order Comment: [facility] has implemented the eGFR calculation approach that does not have a coefficient for race that conforms to the NKF-ASN Task Force Recommendations. Performed By: #### 4 6124 ####[facility] [address] [place] [address] 25182 Glenn Gudino M.D. [id number] Creatinine [Mass/Vol] 2.68 mg/dL High 0.60-1.10 [facility] Comment on above: Order Comment: [facility] has implemented the eGFR calculation approach that does not have a coefficient for race that conforms to the NKF-ASN Task Force Recommendations. Performed By: #### 4 6124 ####[facility] [address] [place] [address] 88877 Glenn Gudino M.D. [id number] EGFR 20 mL/min/1.73 m2 Low >=60 [facility] Comment on above: Order Comment: [facility] has implemented the eGFR calculation approach that does not have a coefficient for race that conforms to the NKF-ASN Task Force Recommendations. Result Comment: Joi mated GFR was calculated using the 2020 CKD-EPI creatinine equation. Performed By: #### 4 6124 ####[facility] [address] [place] [address] 59033 Glenn Gudino M.D. [id number] Glucose [Mass/Vol] 68 mg/dL Normal 65-[address] [facility] Comment on above: Order Comment: [facility] has implemented the eGFR calculation approach that does not have a coefficient for race that conforms to the NKF-ASN Task Force Recommendations. Performed By: #### 4 6124 ####[facility] [address] [place], [place] [id number] Glenn Gudino M.D. [id number] HCO3 (Bld) [Moles/Vol] 26 mmol/L Normal 21-32 [facility] Comment on above: Order Comment: [facility] has implemented the eGFR calculation approach that does not have a coefficient for race that conforms to the NKF-ASN Task Force Recommendations. Performed By: #### 4 6124 ####[facility] [address] [place], [place] [address] Glenn Gudino M.D. [id number] Potassium [Moles/Vol] 4.9 mmol/L Normal 3.5-5.1 [facility] Comment on above: Order Comment: [facility] has implemented the eGFR calculation approach that does not have a coefficient for race that conforms to the NKF-ASN Task Force Recommendations. Result Comment: Slig htly Hemolyzed Performed By: #### 4 6124 ####[facility] [address] [place], [place] [address] Glenn Gudino M.D. [id number] Sodium [Moles/Vol] 134 mmol/L Low 135-[address] [facility] Comment on above: Order Comment: [facility] has implemented the eGFR calculation approach that does not have a coefficient for race that conforms to the NKF-ASN Task Force Recommendations. Performed By: #### 4 6124 ####[facility] [address] [place], [place] [address] Glenn Gudino M.D. [id number] Urea nitrogen [Mass/Vol] 23 mg/dL Normal 8-25 [facility] Comment on above: Order Comment: [facility] has implemented the eGFR calculation approach that does not have a coefficient for race that conforms to the NKF-ASN Task Force Recommendations. Performed By: #### 4 6124 ####[facility] [address] [place], [place] [address] Glenn Gudino M.D. [id number] Urea nitrogen/Creatinine [Mass ratio] 8.6 mg/mg Low 10.0-20.0 [facility] Comment on above: Order Comment: [facility] has implemented the eGFR calculation approach that does not have a coefficient for race that conforms to the NKF-ASN Task Force Recommendations. Performed By: #### 4 6124 ####[facility] [address] [place], [place] [address] Glenn Gudino M.D. [id number] CBCon 03-14-2024 AUTO NRBC 0.0 % Normal [facility] Comment on above: Performed By: #### 4 [id number] ####[facility] [address] [place], [place] [address] Glenn Gudino M.D. [id number] AUTO NRBC ABS COUNT 0.00 K/mcL Normal 0.00-0.00 [facility] Comment on above: Performed By: #### 4 [id number] ####[facility] [address] [place], [place] [address] Glenn Gudino M.D. [id number] Erythrocyte distribution width (RBC) [Ratio] 19.3 % High 11.6-14.8 [facility] Comment on above: Performed By: #### 4 [id number] ####[facility] [address] [place], [place] [id number] Glenn Gudino M.D. [id number] Hematocrit (Bld) [Volume fraction] 23.0 % Low 36.0-46.0 [facility] Comment on above: Performed By: #### 4 [id number] ####[facility] [address] [place] [address] Glenn Gudino M.D. [id number] Hemoglobin (Bld) [Mass/Vol] 6.7 g/dL Off scale low 12.0-16.0 [facility] Comment on above: Result Comment: Resu lts called and read back verified by:.[email or web address] to [id number] @[id number] Performed By: #### 4 [id number] ####[facility] [address] [place] [address] Glenn Gudino M.D. [id number] MCH (RBC) [Entitic mass] 28.5 pg Normal 26.0-34.0 [facility] Comment on above: Performed By: #### 4 [id number] ####[facility] [address] [place] [address] Glenn Gudino M.D. [id number] MCV (RBC) [Entitic vol] 97.9 fL Normal 80.0-100.0 [facility] Comment on above: Performed By: #### 4 [id number] ####[facility] [address] [place], [place] [id number] Glenn Gudino M.D. [id number] MEAN CORPUSCULAR HEMOGLOBIN CONC 29.1 g/dL Low 31.0-37.0 [facility] Comment on above: Performed By: #### 4 [id number] ####[facility] [address] [place] [address] Glenn Gudino M.D. [id number] Platelet mean volume (Bld) [Entitic vol] 9.4 fL Normal 9.4-12.4 [facility] Comment on above: Performed By: #### 4 [id number] ####[facility] [address] [place] [address] Glenn Gudino M.D. [id number] Platelets (Bld) [#/Vol] 181 10*3/uL Normal 150-400 [facility] Comment on above: Performed By: #### 4 [id number] ####[facility] [address] [place] [address] 49724 Glenn Gudino M.D. [id number] RBC (Bld) [#/Vol] 2.35 10*6/uL Low 4.00-5.20 [facility] Comment on above: Performed By: #### 4 [id number] ####[facility] [address] [place], [place] [id number] Glenn Gudino M.D. [id number] WBC (Bld) [#/Vol] 6.70 10*3/uL Normal 4.50-11.00 [facility] Comment on above: Performed By: #### 4 [id number] ####[facility] [address] [place], [place] [id number] Glenn Gudino M.D. [id number] HEMOGLOBIN AND HEMATOCRITon 03-14-2024 Hematocrit (Bld) [Volume fraction] 27.8 % Low 36.0-46.0 [facility] Comment on above: Performed By: #### 4 6909 ####[facility] [address] [place] [address] 27640 Glenn Gudino M.D. [id number] Hemoglobin (Bld) [Mass/Vol] 8.5 g/dL Low 12.0-16.0 [facility] Comment on above: Result Comment: Resu lts checked Performed By: #### 4 6909 ####[facility] [address] [place] [address] 75989 Glenn Gudino M.D. [id number] MAGNESIUM LEVELon 03-14-2024 Magnesium [Mass/Vol] 1.8 mg/dL Normal 1.6-2.4 [facility] Comment on above: Performed By: #### 4 6109 ####[facility] [address] [place] [address] 75171 Glenn Gudino M.D. [id number] NT PRO BNPon 03-14-2024 Natriuretic peptide B (Bld) [Mass/Vol] 49685 pg/mL High 0-300 [facility] Comment on above: Order Comment: Pride Study Cut-offsRule In:< /= 50 Years >450 pg/mL51 Years - 75 Years >900 pg/mL76 Years - 99 Years >1800 pg/mLRule Out:All patients <300 pg/mL Performed By: #### 4 7395 ####[facility] [address] [place], [place] [id number] Glenn Gudino M.D. [id number] WOUND AEROBIC AND ANAEROBIC CULTUREon 03-14-2024 WOUND AEROBIC AND ANAEROBIC CULTURE CULTURE No Anaerobic Growth after 5 days Heavy Growth Normal Enteric Cherelle GRAM STAIN RESULT Moderate WBC Few Gram Positive Cocci Few Gram Negative Bacilli Normal [facility] Comment on above: Performed By: #### 4 4287 ####[facility] [address] [place], [place] [address] Glenn Gudino M.D. [id number] WOUND AFB CULTUREon 03-14-20 WOUND AFB CULTURE AFB CULTURE No Growth of Acid Fast Bacilli after 8 Weeks AFB STAIN (2018) No Acid Fast Bacilli Seen Normal [facility] Comment on above: Performed By: #### 4 4286 ####[facility] [address] [place], [place] [id number] Glenn Gudino M.D. [id number] WOUND FUNGUS CULTUREon 03-14 WOUND FUNGUS CULTURE FUNGUS CULTURE No Fungus Isolated At 4 Weeks FUNGAL SMEAR No Fungal or Yeast Elements Normal [facility] Comment on above: Performed By: #### 4 4288 ####[facility] [address] [place] [address] 73131 Glenn Gudino M.D. [id number] BASIC METABOLIC PANELon 02-26 Anion gap [Moles/Vol] 11 mmol/L Normal - [facility] Comment on above: Order Comment: [facility] has implemented the eGFR calculation approach that does not have a coefficient for race that conforms to the NKF-ASN Task Force Recommendations. Performed By: #### 4 6124 ####[facility] [address] [place] [address]13 Glenn Gudino M.D. [id number] Calcium [Mass/Vol] 8.4 mg/dL Normal 8.4-10.[address] [facility] Comment on above: Order Comment: [facility] has implemented the eGFR calculation approach that does not have a coefficient for race that conforms to the NKF-ASN Task Force Recommendations. Performed By: #### 4 6124 ####[facility] [address] [place] [address] 97861 Glenn Gudino M.D. [id number] Chloride [Moles/Vol] 98 mmol/L Normal 98-108 [facility] Comment on above: Order Comment: [facility] has implemented the eGFR calculation approach that does not have a coefficient for race that conforms to the NKF-ASN Task Force Recommendations. Performed By: #### 4 6124 ####[facility] [address] [place], [place] [id number] Glenn Gudino M.D. [id number] Creatinine [Mass/Vol] 2.18 mg/dL High 0.60-1.10 [facility] Comment on above: Order Comment: [facility] has implemented the eGFR calculation approach that does not have a coefficient for race that conforms to the NKF-ASN Task Force Recommendations. Performed By: #### 4 6124 ####[facility] [address] [place] [address] 81371 Glenn Gudino M.D. [id number] EGFR 25 mL/min/1.73 m2 Low >=60 [facility] Comment on above: Order Comment: [facility] has implemented the eGFR calculation approach that does not have a coefficient for race that conforms to the NKF-ASN Task Force Recommendations. Result Comment: Joi mated GFR was calculated using the 2020 CKD-EPI creatinine equation. Performed By: #### 4 6124 ####[facility] [address] [place] [address] 45631 Glenn Gudino M.D. [id number] Glucose [Mass/Vol] 79 mg/dL Normal 65-[address] [facility] Comment on above: Order Comment: [facility] has implemented the eGFR calculation approach that does not have a coefficient for race that conforms to the NKF-ASN Task Force Recommendations. Performed By: #### 4 6124 ####[facility] [address] [place] [address] 64032 Glenn Gudino M.D. [id number] HCO3 (Bld) [Moles/Vol] 29 mmol/L Normal 21-32 [facility] Comment on above: Order Comment: [facility] has implemented the eGFR calculation approach that does not have a coefficient for race that conforms to the NKF-ASN Task Force Recommendations. Performed By: #### 4 6124 ####[facility] [address] [place] [address] 94135 Glenn Gudino M.D. [id number] Potassium [Moles/Vol] 4.3 mmol/L Normal 3.5-5.1 [facility] Comment on above: Order Comment: [facility] has implemented the eGFR calculation approach that does not have a coefficient for race that conforms to the NKF-ASN Task Force Recommendations. Performed By: #### 4 6124 ####[facility] [address] [place] [address] 75401 Glenn Gudino M.D. [id number] Sodium [Moles/Vol] 134 mmol/L Low 135-[address] [facility] Comment on above: Order Comment: [facility] has implemented the eGFR calculation approach that does not have a coefficient for race that conforms to the NKF-ASN Task Force Recommendations. Performed By: #### 4 6124 ####[facility] [address] [place] [address] 72612 Glenn Gudino M.D. [id number] Urea nitrogen [Mass/Vol] 16 mg/dL Normal 8-25 [facility] Comment on above: Order Comment: [facility] has implemented the eGFR calculation approach that does not have a coefficient for race that conforms to the NKF-ASN Task Force Recommendations. Performed By: #### 4 6124 ####[facility] [address] [place], [place] [id number] Glenn Gudino M.D. [id number] Urea nitrogen/Creatinine [Mass ratio] 7.3 mg/mg Low 10.0-20.0 [facility] Comment on above: Order Comment: [facility] has implemented the eGFR calculation approach that does not have a coefficient for race that conforms to the NKF-ASN Task Force Recommendations. Performed By: #### 4 6124 ####[facility] [address] [place], [place] [id number] Glenn Gudino M.D. [id number] CALCIUM, IONIZEDon CALCIUM IONIZED 4.6 mg/dL Normal 4.5-5.3 [facility] Comment on above: Performed By: #### 4 5190 ####[facility] [address] [place], [place] [id number] Glenn Gudino M.D. [id number] CBCon 03-13-2024 AUTO NRBC 0.0 % Normal [facility] Comment on above: Performed By: #### 4 5218 ####[facility] [address] [place], [place] [id number] Glenn Gudino M.D. [id number] AUTO NRBC ABS COUNT 0.00 K/mcL Normal 0.00-0.00 [facility] Comment on above: Performed By: #### 4 [id number] ####[facility] [address] [place], [place] [id number] Glenn Gudino M.D. [id number] Erythrocyte distribution width (RBC) [Ratio] 18.7 % High 11.6-14.8 [facility] Comment on above: Performed By: #### 4 5218 ####[facility] [address] [place] [address] Glenn Gudino M.D. [id number] Hematocrit (Bld) [Volume fraction] 22.1 % Low 36.0-46.0 [facility] Comment on above: Performed By: #### 4 [id number] ####[facility] [address] [place] [address] Glenn Gudino M.D. [id number] Hemoglobin (Bld) [Mass/Vol] 7.0 g/dL Low 12.0-16.0 [facility] Comment on above: Performed By: #### 4 5218 ####[facility] [address] [place], [place] [id number] Glenn Gudino M.D. [id number] MCH (RBC) [Entitic mass] 30.2 pg Normal 26.0-34.0 [facility] Comment on above: Performed By: #### 4 5218 ####[facility] [address] [place] [address] Glenn Gudino M.D. [id number] MCV (RBC) [Entitic vol] 95.3 fL Normal 80.0-100.0 [facility] Comment on above: Performed By: #### 4 5218 ####[facility] [address] [place], [place] [id number] Glenn Gudino M.D. [id number] MEAN CORPUSCULAR HEMOGLOBIN CONC 31.7 g/dL Normal 31.0-37.0 [facility] Comment on above: Performed By: #### 4 5218 ####[facility] [address] [place] [address] Glenn Gudino M.D. [id number] Platelet mean volume (Bld) [Entitic vol] 9.7 fL Normal 9.4-12.4 [facility] Comment on above: Performed By: #### 4 5218 ####[facility] [address] [place], [place] [id number] Glenn Gudino M.D. [id number] Platelets (Bld) [#/Vol] 187 10*3/uL Normal 150-400 [facility] Comment on above: Performed By: #### 4 5218 ####[facility] [address] [place], [place] [id number] Glenn Gudino M.D. [id number] RBC (Bld) [#/Vol] 2.32 10*6/uL Low 4.00-5.20 [facility] Comment on above: Performed By: #### 4 5218 ####[facility] [address] [place], [place] [id number] Glenn Gudino M.D. [id number] WBC (Bld) [#/Vol] 5.89 10*3/uL Normal 4.50-11.00 [facility] Comment on above: Performed By: #### 4 [id number] ####[facility] [address] [place] [address] 13732 Glenn Gudino M.D. [id number] CONSULTon 03-13-2024 CONSULT Normal [facility] HEPATITIS B SURFACE ANTIGENo n 03-13-2024 HEPATITIS B SURFACE ANTIGEN Positive Abnormal Negative [facility] Comment on above: Order Comment: Test performed using Adele ANNALISE immunoassay system Performed By: #### 4 4081 ####[facility] [address] [place], [place] [id number] Glenn Gudino M.D. [id number] MAGNESIUM LEVELon 03-13-2024 Magnesium [Mass/Vol] 1.6 mg/dL Normal 1.6-2.4 [facility] Comment on above: Performed By: #### 4 6109 ####[facility] [address] [place], [place] [id number] Glenn Gudino M.D. [id number] PHOSPHORUSon 03-13-2024 Phosphate [Mass/Vol] 2.8 mg/dL Normal 2.8-4.1 [facility] Comment on above: Performed By: #### 4 6299 ####[facility] [address] [place] [address] Glenn Gudino M.D. [id number] PROTEIN / CREATININE RATIO, URINEon 03-13-2024 CREATININE,UR 62.4 mg/dL Normal [facility] Comment on above: Performed By: #### 4 7136 ####[facility] [address] [place] [address] Glenn Gudino M.D. [id number] Protein (U) [Mass/Vol] 225.4 mg/dL Normal [facility] Comment on above: Performed By: #### 4 7136 ####[facility] [address] [place], [place] [id number] Glenn Gudino M.D. [id number] PROTEIN CREATININE RATIO 3.6 ratio High 0.0-0.2 [facility] Comment on above: Performed By: #### 4 7136 ####[facility] [address] [place], [place] [id number] Glenn Gudino M.D. [id number] URINALYSISon 03-13-2024 AMORPHOUS CRYSTALS Many Abnormal None Seen , Rare [facility] Comment on above: Order Comment: Micro scopic examination is performed on all urinalysis samples and only positive findings are reported. The test for blood on the chemical analytic portion of urinalysis may also be positive due to hemoglobinuria and myoglobinuria and if red blood cells are present they are quantified by microscopic examination. Performed By: #### 4 6625 ####[facility] [address] [place] [address] Glenn Gudino M.D. [id number] BACTERIA, URINE Rare Abnormal None Seen [facility] Comment on above: Order Comment: Micro scopic examination is performed on all urinalysis samples and only positive findings are reported. The test for blood on the chemical analytic portion of urinalysis may also be positive due to hemoglobinuria and myoglobinuria and if red blood cells are present they are quantified by microscopic examination. Performed By: #### 4 6625 ####[facility] [address] [place] [address] Glenn Gudino M.D. [id number] BILIRUBIN, URINE Negative Normal Negative [facility] Comment on above: Order Comment: Micro scopic examination is performed on all urinalysis samples and only positive findings are reported. The test for blood on the chemical analytic portion of urinalysis may also be positive due to hemoglobinuria and myoglobinuria and if red blood cells are present they are quantified by microscopic examination. Performed By: #### 4 6625 ####[facility] [address] [place] [address] Glenn Guidno M.D. [id number] BLOOD, URINE Small Abnormal Negative [facility] Comment on above: Order Comment: Micro scopic examination is performed on all urinalysis samples and only positive findings are reported. The test for blood on the chemical analytic portion of urinalysis may also be positive due to hemoglobinuria and myoglobinuria and if red blood cells are present they are quantified by microscopic examination. Performed By: #### 4 6625 ####[facility] [address] [place] [address] Glenn Gudino M.D. [id number] CALCIUM OXALATE CRYSTALS Many Abnormal None Seen [facility] Comment on above: Order Comment: Micro scopic examination is performed on all urinalysis samples and only positive findings are reported. The test for blood on the chemical analytic portion of urinalysis may also be positive due to hemoglobinuria and myoglobinuria and if red blood cells are present they are quantified by microscopic examination. Performed By: #### 4 6625 ####[facility] [address] [place] [address] Glenn Gudino M.D. [id number] Clarity (U) Cloudy Abnormal Clear [facility] Comment on above: Order Comment: Micro scopic examination is performed on all urinalysis samples and only positive findings are reported. The test for blood on the chemical analytic portion of urinalysis may also be positive due to hemoglobinuria and myoglobinuria and if red blood cells are present they are quantified by microscopic examination. Performed By: #### 4 6625 ####[facility] [address] [place] [address] Glenn Gudino M.D. [id number] Color (U) Yellow Normal Colorless, Yellow [facility] Comment on above: Order Comment: Micro scopic examination is performed on all urinalysis samples and only positive findings are reported. The test for blood on the chemical analytic portion of urinalysis may also be positive due to hemoglobinuria and myoglobinuria and if red blood cells are present they are quantified by microscopic examination. Performed By: #### 4 6625 ####[facility] [address] [place], [place] [address] Glenn Gudino M.D. [id number] Glucose Ql (U) Negative Normal Negative [facility] Comment on above: Order Comment: Micro scopic examination is performed on all urinalysis samples and only positive findings are reported. The test for blood on the chemical analytic portion of urinalysis may also be positive due to hemoglobinuria and myoglobinuria and if red blood cells are present they are quantified by microscopic examination. Performed By: #### 4 6625 ####[facility] [address] [place], [place] [address] Glenn Gudino M.D. [id number] Ketones Ql (U) Negative Normal Negative [facility] Comment on above: Order Comment: Micro scopic examination is performed on all urinalysis samples and only positive findings are reported. The test for blood on the chemical analytic portion of urinalysis may also be positive due to hemoglobinuria and myoglobinuria and if red blood cells are present they are quantified by microscopic examination. Performed By: #### 4 6625 ####[facility] [address] [place], [place] [address] Glenn Gudino M.D. [id number] Leukocyte esterase Test strip Ql (U) Large Abnormal Negative [facility] Comment on above: Order Comment: Micro scopic examination is performed on all urinalysis samples and only positive findings are reported. The test for blood on the chemical analytic portion of urinalysis may also be positive due to hemoglobinuria and myoglobinuria and if red blood cells are present they are quantified by microscopic examination. Performed By: #### 4 6625 ####[facility] [address] [place] [address] Glenn Gudino M.D. [id number] MUCUS, URINE Many Abnormal None Seen, Rare [facility] Comment on above: Order Comment: Micro scopic examination is performed on all urinalysis samples and only positive findings are reported. The test for blood on the chemical analytic portion of urinalysis may also be positive due to hemoglobinuria and myoglobinuria and if red blood cells are present they are quantified by microscopic examination. Performed By: #### 4 6625 ####[facility] [address] [place] [address] Glenn Gudino M.D. [id number] NITRITE, URINE Negative Normal Negative [facility] Comment on above: Order Comment: Micro scopic examination is performed on all urinalysis samples and only positive findings are reported. The test for blood on the chemical analytic portion of urinalysis may also be positive due to hemoglobinuria and myoglobinuria and if red blood cells are present they are quantified by microscopic examination. Performed By: #### 4 6625 ####[facility] [address] [place] [address] Glenn Gudino M.D. [id number] pH (U) 8.5 [pH] High 5.0-7.0 [facility] Comment on above: Order Comment: Micro scopic examination is performed on all urinalysis samples and only positive findings are reported. The test for blood on the chemical analytic portion of urinalysis may also be positive due to hemoglobinuria and myoglobinuria and if red blood cells are present they are quantified by microscopic examination. Performed By: #### 4 6625 ####[facility] [address] [place] [address] Glenn Gudino M.D. [id number] PROTEIN, URINE >=300 Abnormal Negative [facility] Comment on above: Order Comment: Micro scopic examination is performed on all urinalysis samples and only positive findings are reported. The test for blood on the chemical analytic portion of urinalysis may also be positive due to hemoglobinuria and myoglobinuria and if red blood cells are present they are quantified by microscopic examination. Performed By: #### 4 6625 ####[facility] [address] [place] [address] Glenn Gudino M.D. [id number] RBC LM.HPF (Urine sed) [#/Area] 2 /[HPF] Normal 0-3 [facility] Comment on above: Order Comment: Micro scopic examination is performed on all urinalysis samples and only positive findings are reported. The test for blood on the chemical analytic portion of urinalysis may also be positive due to hemoglobinuria and myoglobinuria and if red blood cells are present they are quantified by microscopic examination. Performed By: #### 4 6625 ####[facility] [address] [place], [place] [id number] Glenn Gudino M.D. [id number] Specific gravity (U) [Rel density] 1.014 Normal 1.005-1.02 5 [facility] Comment on above: Order Comment: Micro scopic examination is performed on all urinalysis samples and only positive findings are reported. The test for blood on the chemical analytic portion of urinalysis may also be positive due to hemoglobinuria and myoglobinuria and if red blood cells are present they are quantified by microscopic examination. Performed By: #### 4 6625 ####[facility] [address] [place] [address] 05183 Glenn Gudino M.D. [id number] SQUAMOUS EPITHELIAL 1 /hpf Normal 0-4 [facility] Comment on above: Order Comment: Micro scopic examination is performed on all urinalysis samples and only positive findings are reported. The test for blood on the chemical analytic portion of urinalysis may also be positive due to hemoglobinuria and myoglobinuria and if red blood cells are present they are quantified by microscopic examination. Performed By: #### 4 6625 ####[facility] [address] [place], [place] [address] Glenn Gudino M.D. [id number] UROBILINOGEN, URINE <2.0 Normal <2.0 [facility] Comment on above: Order Comment: Micro scopic examination is performed on all urinalysis samples and only positive findings are reported. The test for blood on the chemical analytic portion of urinalysis may also be positive due to hemoglobinuria and myoglobinuria and if red blood cells are present they are quantified by microscopic examination. Performed By: #### 4 6625 ####[facility] [address] [place] [address] 67241 Glenn Gudino M.D. [id number] WBC CLUMPS, URINE Rare Abnormal None Seen [facility] Comment on above: Order Comment: Micro scopic examination is performed on all urinalysis samples and only positive findings are reported. The test for blood on the chemical analytic portion of urinalysis may also be positive due to hemoglobinuria and myoglobinuria and if red blood cells are present they are quantified by microscopic examination. Performed By: #### 4 6625 ####[facility] [address] [place] [address] 46048 Glenn Gudino M.D. [id number] WBC LM.HPF (Urine sed) [#/Area] 23 /[HPF] High 0-5 [facility] Comment on above: Order Comment: Micro scopic examination is performed on all urinalysis samples and only positive findings are reported. The test for blood on the chemical analytic portion of urinalysis may also be positive due to hemoglobinuria and myoglobinuria and if red blood cells are present they are quantified by microscopic examination. Performed By: #### 4 6625 ####[facility] [address] [place] [address] Glenn Gudino M.D. [id number] US DOPPLER SEGMENTAL ARTERIA L LEGS BILATERALon 03-13-2024 US DOPPLER SEGMENTAL ARTERIAL LEGS BILATERAL Normal [facility] ANTIBODY IDENTIFICATION-Con 03-12-2024 ANTIBODY IDENTIFICATION-C Normal [facility] Comment on above: Performed By: #### 4 6427_Anti-C ####[facility] [address] [place] [address] Nurys Oneill MD [id number] [facility] B12/FOLATEon 03-12-2024 Cobalamin (Vitamin B12) [Mass/Vol] 536 pg/mL Normal 232-1245 [facility] Comment on above: Performed By: #### 4 6967 ####[facility] [address] [place] [address] Glenn Gudino M.D. [id number] FOLATE 19.1 ng/mL High 3.1-17.5 [facility] Comment on above: Result Comment: Defi cient <2.2Borderline 2.2 - 3.0Excessive >17.5 Performed By: #### 4 6967 ####[facility] [address] [place] [address] Glenn Gudino M.D. [id number] BASIC METABOLIC PANELon 02-26 Anion gap [Moles/Vol] 11 mmol/L Normal 10-20 [facility] Comment on above: Order Comment: [facility] has implemented the eGFR calculation approach that does not have a coefficient for race that conforms to the NKF-ASN Task Force Recommendations. Performed By: #### 4 6124 ####[facility] [address] [place] [address] Glenn Gudino M.D. [id number] Calcium [Mass/Vol] 8.3 mg/dL Low 8.4-10.[address] [facility] Comment on above: Order Comment: [facility] has implemented the eGFR calculation approach that does not have a coefficient for race that conforms to the NKF-ASN Task Force Recommendations. Performed By: #### 4 6124 ####[facility] [address] [place] [address] 22756 Glenn Gudino M.D. [id number] Chloride [Moles/Vol] 98 mmol/L Normal 98-108 [facility] Comment on above: Order Comment: [facility] has implemented the eGFR calculation approach that does not have a coefficient for race that conforms to the NKF-ASN Task Force Recommendations. Performed By: #### 4 6124 ####[facility] [address] [place], [place] [address] Glenn Gudino M.D. [id number] Creatinine [Mass/Vol] 1.88 mg/dL High 0.60-1.10 [facility] Comment on above: Order Comment: [facility] has implemented the eGFR calculation approach that does not have a coefficient for race that conforms to the NKF-ASN Task Force Recommendations. Performed By: #### 4 6124 ####[facility] [address] [place] [address] 39114 Glenn Gudino M.D. [id number] EGFR 30 mL/min/1.73 m2 Low >=60 [facility] Comment on above: Order Comment: [facility] has implemented the eGFR calculation approach that does not have a coefficient for race that conforms to the NKF-ASN Task Force Recommendations. Result Comment: Joi mated GFR was calculated using the 2020 CKD-EPI creatinine equation. Performed By: #### 4 6124 ####[facility] [address] [place] [address]65[address] Glenn Gudino M.D. [id number] Glucose [Mass/Vol] 75 mg/dL Normal 65-[address] [facility] Comment on above: Order Comment: [facility] has implemented the eGFR calculation approach that does not have a coefficient for race that conforms to the NKF-ASN Task Force Recommendations. Performed By: #### 4 6124 ####[facility] [address] [place] [address] 16379 Glenn Gudino M.D. [id number] HCO3 (Bld) [Moles/Vol] 32 mmol/L Normal 21-32 [facility] Comment on above: Order Comment: [facility] has implemented the eGFR calculation approach that does not have a coefficient for race that conforms to the NKF-ASN Task Force Recommendations. Performed By: #### 4 6124 ####[facility] [address] [place] [address] 23536 Glenn Gudino M.D. [id number] Potassium [Moles/Vol] 4.2 mmol/L Normal 3.5-5.1 [facility] Comment on above: Order Comment: [facility] has implemented the eGFR calculation approach that does not have a coefficient for race that conforms to the NKF-ASN Task Force Recommendations. Performed By: #### 4 6124 ####[facility] [address] [place] [address] 49452 Glenn Gudino M.D. [id number] Sodium [Moles/Vol] 137 mmol/L Normal 135-[address] [facility] Comment on above: Order Comment: [facility] has implemented the eGFR calculation approach that does not have a coefficient for race that conforms to the NKF-ASN Task Force Recommendations. Performed By: #### 4 6124 ####[facility] [address] [place] [address] 66667 Glenn Gudino M.D. [id number] Urea nitrogen [Mass/Vol] 12 mg/dL Normal 8-25 [facility] Comment on above: Order Comment: [facility] has implemented the eGFR calculation approach that does not have a coefficient for race that conforms to the NKF-ASN Task Force Recommendations. Performed By: #### 4 6124 ####[facility] [address] [place] [address] 72261 Glenn Gudino M.D. [id number] Urea nitrogen/Creatinine [Mass ratio] 6.4 mg/mg Low 10.0-20.0 [facility] Comment on above: Order Comment: [facility] has implemented the eGFR calculation approach that does not have a coefficient for race that conforms to the NKF-ASN Task Force Recommendations. Performed By: #### 4 6124 ####[facility] [address] [place] [address] 25644 Glenn Gudino M.D. [id number] CBC W/Diff, Automatedon 02-26 PATH REV Reviewed Normal [facility] Comment on above: Result Comment: Neut rophilic leukocytosis.Normocytic anemia.Clinical correlation necessary.Cuba Manley M.D. 03/12/24 AMENDED REPORT 03/12/24 1442 PATH REV previously reported as: September Performed By: #### L 100.0100, L500.2500 ####[facility] [address] [place], [address] CBC WITH AUTO DIFFERENTIALon 03-12-2024 AUTO NRBC 0.0 % Normal [facility] Comment on above: Performed By: #### L [id number] ####[facility] [address] [place] [address] 12408 Glenn Gudino M.D. [id number] AUTO NRBC ABS COUNT 0.00 K/mcL Normal 0.00-0.00 [facility] Comment on above: Performed By: #### L [id number] ####[facility] [address] [place] [address] 45431 Glenn Gudino M.D. [id number] Erythrocyte distribution width (RBC) [Ratio] 18.3 % High 11.6-14.8 [facility] Comment on above: Performed By: #### Hugh [id number] ####[facility] [address] [place], [place] [address]Karma Gudino M.D. [id number] Hematocrit (Bld) [Volume fraction] 23.7 % Low 36.0-46.0 [facility] Comment on above: Performed By: #### Hugh [id number] ####[facility] [address] [place] [address] Glenn Gduino M.D. [id number] Hemoglobin (Bld) [Mass/Vol] 7.0 g/dL Low 12.0-16.0 [facility] Comment on above: Performed By: #### Hugh [id number] ####[facility] [address] [place] [address] Glenn Gudino M.D. [id number] MCH (RBC) [Entitic mass] 28.7 pg Normal 26.0-34.0 [facility] Comment on above: Performed By: #### Hugh [id number] ####[facility] [address] [place] [address] Glenn Gudino M.D. [id number] MCV (RBC) [Entitic vol] 97.1 fL Normal 80.0-100.0 [facility] Comment on above: Performed By: #### L [id number] ####[facility] [address] [place], [place] [id number] Glenn Gudino M.D. [id number] MEAN CORPUSCULAR HEMOGLOBIN CONC 29.5 g/dL Low 31.0-37.0 [facility] Comment on above: Performed By: #### L [id number] ####[facility] [address] [place], [place] [id number] Glenn Gudino M.D. [id number] Platelet mean volume (Bld) [Entitic vol] 9.6 fL Normal 9.4-12.4 [facility] Comment on above: Performed By: #### L [id number] ####[facility] [address] [place] [address] 69887 Glenn Gudino M.D. [id number] Platelets (Bld) [#/Vol] 180 10*3/uL Normal 150-400 [facility] Comment on above: Performed By: #### L [id number] ####[facility] [address] [place] [address] 67887 Glenn Gudino M.D. [id number] RBC (Bld) [#/Vol] 2.44 10*6/uL Low 4.00-5.20 [facility] Comment on above: Performed By: #### L [id number] ####[facility] [address] [place], [place] [id number] Glenn Gudino M.D. [id number] WBC (Bld) [#/Vol] 5.26 10*3/uL Normal 4.50-11.00 [facility] Comment on above: Performed By: #### L [id number] ####[facility] [address] [place] [address] 35944 Glenn Gudino M.D. [id number] COMPLEMENT DIRECT ANTIGLOBUL IN TESTon 03-12-2024 COMPLEMENT DIRECT ANTIGLOBULIN TEST Negative Normal [facility] Comment on above: Performed By: #### 4 6847 ####[facility] [address] [place] [address] Nurys Oneill MD [id number] RMHTS CONSULTon 03-12-2024 CONSULT Normal [facility] CONSULT Normal [facility] ED Prov Noteon 03-12-2024 ED Prov Note Normal [facility] ELUTION-WAAon 03-12-2024 ELUTION-WAA Normal [facility] Comment on above: Performed By: #### 4 [id number] ####[facility] [address] [place] [address] Nurys Oneill MD [id number] RMHTS GIGGon 03-12-2024 GIGG Positive Normal [facility] Comment on above: Performed By: #### G IGG ####[facility] [address] [place] [address] Nurys Oneill MD [id number] RMHTS H AND Ney 03-12-2024 H AND P Normal [facility] HEPATIC FUNCTION PANELon Albumin [Mass/Vol] 2.9 g/dL Low 3.2-5.[address] [facility] Comment on above: Performed By: #### 4 5866 ####[facility] [address] [place] [address] Glenn Gudino M.D. [id number] ALP [Catalytic activity/Vol] 52 U/L Normal 40-150 [facility] Comment on above: Performed By: #### 4 5866 ####[facility] [address] [place] [address] Glenn Gudino M.D. [id number] ALT < Normal 0-35 U/L [facility] Comment on above: Performed By: #### 4 5866 ####[facility] [address] [place] [address] Glenn Gudino M.D. [id number] AST [Catalytic activity/Vol] 26 U/L Normal 0-35 U/L [facility] Comment on above: Performed By: #### 4 5866 ####[facility] [address] [place], [place] [id number] Glenn Gudino M.D. [id number] Bilirubin [Mass/Vol] 0.4 mg/dL Normal 0.0-1.3 [facility] Comment on above: Performed By: #### 4 5866 ####[facility] [address] [place] [address] Glenn Gudino M.D. [id number] Bilirubin.indirect [Mass/Vol] 0.2 mg/dL Normal 0.0-0.4 [facility] Comment on above: Performed By: #### 4 5866 ####[facility] [address] [place], [place] [id number] Glenn Gudino M.D. [id number] Protein [Mass/Vol] 6.5 g/dL Normal 6.0-8.[address] [facility] Comment on above: Performed By: #### 4 5866 ####[facility] [address] [place], [place] [id number] Glenn Gudino M.D. [id number] IRON STUDY WITH FERRITINon Ferritin [Mass/Vol] 2720 ng/mL High 13-150 [facility] Comment on above: Performed By: #### 4 7645 ####[facility] [address] [place] [address] Glenn Gudino M.D. [id number] Iron [Mass/Vol] 23 ug/dL Low 30-160 [facility] Comment on above: Performed By: #### 4 7645 ####[facility] [address] [place], [place] [id number] Glenn Gudino M.D. [id number] IRON SATURATION 22 % Normal 20-50 [facility] Comment on above: Performed By: #### 4 7676 ####[facility] [address] [place], [place] [id number] Glenn Gudino M.D. [id number] TIBC (CALCULATED) 104 mcg/dL Low 225-430 [facility] Comment on above: Performed By: #### 4 7688 ####[facility] [address] [place], [place] [id number] Glenn Gudino M.D. [id number] LACTIC ACID, PLASMAon 2023 LACTIC ACID, PLASMA 0.8 mmol/L Normal 0.6-2.0 [facility] Comment on above: Performed By: #### 4 6053 ####[facility] [address] [place] [address] Glenn Gudino M.D. [id number] MANUAL DIFFERENTIALon 2023 BASOPHILS - ABS (DIFF) 0.00 K/mcL Normal 0.00-0.30 [facility] Comment on above: Performed By: #### 4 3106 ####[facility] [address] [place] [address] Glenn Gudino M.D. [id number] BASOPHILS - REL (DIFF) 0.0 % Normal [facility] Comment on above: Performed By: #### 4 6306 ####[facility] [address] [place] [address] Glenn Gudino M.D. [id number] EOSINOPHILS - ABS (DIFF) 0.00 K/mcL Normal 0.00-0.50 [facility] Comment on above: Performed By: #### 4 4313 ####[facility] [address] [place] [address] Glenn Gudino M.D. [id number] EOSINOPHILS - REL (DIFF) 0.0 % Normal [facility] Comment on above: Performed By: #### 4 2178 ####[facility] [address] [place] [address] Glenn Gudino M.D. [id number] LYMPHOCYTES - ABS (DIFF) 0.32 K/mcL Low 0.90-4.00 [facility] Comment on above: Performed By: #### 1 7106 ####[facility] [address] [place] [address] Glenn Gudino M.D. [id number] LYMPHOCYTES - REL (DIFF) 6.0 % Normal [facility] Comment on above: Performed By: #### 4 2979 ####[facility] [address] [place] [address] Glenn Gudino M.D. [id number] METAMYELOCYTES-REL (DIFF) 2.0 % Normal [facility] Comment on above: Performed By: #### 4 5453 ####[facility] [address] [place] [address] Glenn Gudino M.D. [id number] MONOCYTES - ABS (DIFF) 0.16 K/mcL Low 0.30-0.90 [facility] Comment on above: Performed By: #### 4 4632 ####[facility] [address] [place] [address] Glenn Gudino M.D. [id number] MONOCYTES - REL (DIFF) 3.0 % Normal [facility] Comment on above: Performed By: #### 4 6199 ####[facility] [address] [place] [address] Glenn Gudino M.D. [id number] MYELOCYTES RELATIVE PERCENT 1.0 % Normal [facility] Comment on above: Performed By: #### 4 1236 ####[facility] [address] [place], [place] [id number] Glenn Gudino M.D. [id number] NEUTROPHILS - ABS (DIFF) 4.79 K/mcL Normal 1.70-7.00 [facility] Comment on above: Result Comment: Left Shift Confirmed. Performed By: #### 4 3533 ####[facility] [address] [place], [place] [id number] Glenn Gudino M.D. [id number] NEUTROPHILS - REL (DIFF) 88.0 % Normal [facility] Comment on above: Performed By: #### 4 6976 ####[facility] [address] [place] [address] Glenn Gudino M.D. [id number] MORPHOLOGYon 10-15-2024 OVAL SCAN Few Normal [facility] Comment on above: Performed By: #### L [id number] ####[facility] [address] [place] [address] Glenn Gudino M.D. [id number] PLATELET ESTIMATE Normal Normal Normal [facility] Comment on above: Performed By: #### L AB295 ####[facility] [address] [place] [address] Glenn Gudino M.D. [id number] POLY SCAN Few Normal [facility] Comment on above: Performed By: #### L [id number] ####[facility] [address] [place] [address] Glenn Gudino M.D. [id number] RBC MORPH SCAN See Comment Normal [facility] Comment on above: Result Comment: RBC Indices confirmed with manual peripheral smear review. Performed By: #### L [id number] ####[facility] [address] [place] [address] Glenn Gudino M.D. [id number] TEAR DROP CELL SCAN Few Normal [facility] Comment on above: Performed By: #### L [id number] ####[facility] [address] [place], [place] [id number] Glenn Gudino M.D. [id number] PERIPHERAL SMEAR REVIEW ([facility] ONLY)on 03-12-2024 SMEAR REVIEW See Comment Normal [facility] Comment on above: Result Comment: Smea r reviewed for possible immature cells. Performed By: #### C [id number] ####[facility] [address] [place], [place] [id number] Glenn Gudino M.D. [id number] RETICULOCYTEon 03-12-2024 IMMATURE RETIC FRACT 26.2 % High 2.3-15.[address] [facility] Comment on above: Performed By: #### 4 6452 ####[facility] [address] [place] [address] Glenn Gudino M.D. [id number] RETIC HGB EQUIVALENT 30.4 PG Normal 27.7-38.2 [facility] Comment on above: Result Comment: The cut-off for RET-He established in our institution is 27.7-38.2 pg/RBC. A value below this range is highly suggestive of iron deficiency. At values above 38.2 pg/RBC, patients are unlikely to respond to additional iron therapy. Performed By: #### 4 6452 ####[facility] [address] [place] [address] Glenn Gudino M.D. [id number] RETICULOCYTE ABSOLUTE COUNT 0.088 M/mcL High 0.025-0.07 0 [facility] Comment on above: Performed By: #### 4 6452 ####[facility] [address] [place] [address] Glenn Gudino M.D. [id number] RETICULOCYTE COUNT PCT 3.6 % Normal [facility] Comment on above: Performed By: #### 4 6452 ####[facility] [address] [place] [address] Glenn Gudino M.D. [id number] TYPE AND SCREENon 03-12-2024 TYPE AND SCREEN ABORH: O Positive AB SCREEN: Positive EXPIRATION DATE: 03/15/2024 23:59 EST Normal [facility] Comment on above: Performed By: #### 4 6619 ####[facility] [address] [place] [address] Nurys Oneill MD [id number] RMHTS URIC ACIDon 03-12-2024 Urate [Mass/Vol] 3.2 mg/dL Normal 2.4-7.0 [facility] Comment on above: Performed By: #### 4 6629 ####[facility] [address] [place] [address] Glenn Gudino M.D. [id number] US DOPPLER SEGMENTAL ARTERIA L LEGS BILATERALon 03-12-2024 US DOPPLER SEGMENTAL ARTERIAL LEGS BILATERAL Normal [facility] XR CHEST PA/APon 03-12-2024 XR CHEST PA/AP Normal [facility] Comment on above: Order Comment: Injur y/Trauma or Illness?:Illness/OtherHow long have you had these symptoms (acute/chronic)?:UnknownReason for exam?:recheck pleural effusionsHistory of cancer?:uSurgeries, chemotherapy, or radiation?:uType of Exam?:UnknownAdditional signs and symptoms?:. Abdomen/Pelvis without Conto n 03-11-2024 Abdomen/Pelvis without Cont Normal [facility] Basic Metabolic Profile (BMP )on 03-11-2024 BUN/CRE 6.6 RATIO Low 03-17 [facility] Comment on above: Performed By: #### L 100.0100, L500.2500 ####[facility] [address] [facility] [address] CA,Total 8.5 mg/dL Normal 8.5-10.1 [facility] Comment on above: Performed By: #### L 100.0100, L500.2500 ####[facility] [address] [facility] [address] Chloride [Moles/Vol] 98 mmol/L Normal 98-107 [facility] Comment on above: Performed By: #### L 100.0100, L500.2500 ####[facility] [address] [facility] [address] CO2 [Moles/Vol] 31.0 mmol/L Normal 21.0-32.0 [facility] Comment on above: Performed By: #### L 100.0100, L500.2500 ####[facility] [address] [place], [address] Creatinine [Mass/Vol] 1.37 mg/dL High 0.55-1.[address] [facility] Comment on above: Result Comment: The validity of the calculated GFR GFRAA in patients over70 years has not been determined. Clinical correlation isessential. Performed By: #### L 100.0100, L500.2500 ####[facility] [address] [place], [address] ECRCL 39.14 ml/min Normal [facility] Comment on above: Performed By: #### L 100.0100, L500.2500 ####[facility] [address] [place], [address] EST GFR - AA 50 mL/min Low >60 [facility] Comment on above: Result Comment: Afri can [place] GFR Calc Performed By: #### L 100.0100, L500.2500 ####[facility] [address] [place], [address] GAP 5 Normal 5-15 [facility] Comment on above: Performed By: #### L 100.0100, L500.2500 ####[facility] [address] [place], [address] GFR/1.73 sq M.predicted among non-blacks MDRD (S/P/Bld) [Vol rate/Area] 42 mL/min/{1.73_m2} Low >60 [facility] Comment on above: Result Comment: Non- GFR Calc Performed By: #### L 100.0100, L500.2500 ####[facility] [address] [place], [address] Glucose [Mass/Vol] 62 mg/dL Low 74-106 [facility] Comment on above: Performed By: #### L 100.0100, L500.2500 ####[facility] [address] [place], [address] Potassium [Moles/Vol] 3.7 mmol/L Normal 3.5-5.[address] [facility] Comment on above: Performed By: #### L 100.0100, L500.2500 ####[facility] [address] [place], [address] Sodium [Moles/Vol] 135 mmol/L Low 136-145 [facility] Comment on above: Performed By: #### L 100.0100, L500.2500 ####[facility] [address] [place], [address] Urea nitrogen [Mass/Vol] 9 mg/dL Normal 7-18 [facility] Comment on above: Performed By: #### L 100.0100, L500.2500 ####[facility] [address] [place], [address] Emergency Department Summary on 03-11-2024 Emergency Department Summary Normal [facility] Foot min 3 Viewson Foot min 3 Views Normal [facility] CBC-Complete Blood Cnt No Di ffon 02-29-2024 Erythrocyte distribution width (RBC) [Ratio] 17.3 % High 11.6-14.6 [facility] Comment on above: Performed By: #### L 500.4050, L100.0500 ####[facility] [address] [place], [address] Hematocrit (Bld) [Volume fraction] 23.2 % Low 37-47 [facility] Comment on above: Performed By: #### L 500.4050, L100.0500 ####[facility] [address] [place], [address] Hemoglobin (Bld) [Mass/Vol] 7.1 g/dL Low 12.0-15.0 [facility] Comment on above: Performed By: #### L 500.4050, L100.0500 ####[facility] [address] [place], [address] MCH (RBC) [Entitic mass] 28.4 pg Normal 27.0-32.0 [facility] Comment on above: Performed By: #### L 500.4050, L100.0500 ####[facility] [address] [place], [address] MCHC (RBC) [Mass/Vol] 30.6 g/dL Low 32-[address] [facility] Comment on above: Performed By: #### L 500.4050, L100.0500 ####[facility] [address] [place], [address] MCV (RBC) [Entitic vol] 92.8 fL Normal 81-99 [facility] Comment on above: Performed By: #### L 500.4050, L100.0500 ####[facility] [address] [place], [address] Platelet mean volume (Bld) [Entitic vol] 9.8 fL Normal 6.2-12.0 [facility] Comment on above: Performed By: #### L 500.4050, L100.0500 ####[facility] [address] [place], [address] Platelets (Bld) [#/Vol] 207 10*3/uL Normal 150-450 [facility] Comment on above: Performed By: #### L 500.4050, L100.0500 ####[facility] [address] [place], [address] RBC (Bld) [#/Vol] 2.50 10*6/uL Low 4.2-5.4 [facility] Comment on above: Performed By: #### L 500.4050, L100.0500 ####[facility] [address] [place], [address] RDW SD 57.8 fl High 35.1-43.9 [facility] Comment on above: Performed By: #### L 500.4050, L100.0500 ####[facility] [address] [place], [address] WBC (Bld) [#/Vol] 4.3 10*3/uL Low 4.4-11.0 [facility] Comment on above: Performed By: #### L 500.4050, L100.0500 ####[facility] [address] [place], [address] Comprehensive Metabolic Prof ilon 02-29-2024 Albumin [Mass/Vol] 2.1 g/dL Low 3.2-5.0 [facility] Comment on above: Performed By: #### L 500.4050, L100.0500 ####[facility] [address] [place], [address] Albumin/Globulin [Mass ratio] 0.6 {ratio} Low 0.9-2.4 [facility] Comment on above: Performed By: #### L 500.4050, L100.0500 ####[facility] [address] [place], [address] ALK P 49 U/L Normal 45-117 [facility] Comment on above: Performed By: #### L 500.4050, L100.0500 ####[facility] [address] [place], [address] ALT [Catalytic activity/Vol] 7 U/L Low 13-56 [facility] Comment on above: Performed By: #### L 500.4050, L100.0500 ####[facility] [address] [place], [address] AST [Catalytic activity/Vol] 24 U/L Normal 15-37 [facility] Comment on above: Performed By: #### L 500.4050, L100.0500 ####[facility] [address] [place], [address] Bilirubin [Mass/Vol] 0.50 mg/dL Normal 0.20-1.00 [facility] Comment on above: Result Comment: For patients on eltrombopag therapy, use of Dimension [place] TBIL is not recommended. Performed By: #### L 500.4050, L100.0500 ####[facility] [address] [place], [address] BUN/CRE 7.8 RATIO Low 10-20 [facility] Comment on above: Performed By: #### L 500.4050, L100.0500 ####[facility] [address] [place], [address] [place],Total 7.8 mg/dL Low 8.5-10.1 [facility] Comment on above: Performed By: #### L 500.4050, L100.0500 ####[facility] [address] [place], [address] Chloride [Moles/Vol] 97 mmol/L Low 98-107 [facility] Comment on above: Performed By: #### L 500.4050, L100.0500 ####[facility] [address] [place], [address] CO2 [Moles/Vol] 34.0 mmol/L High 21.0-32.0 [facility] Comment on above: Performed By: #### L 500.4050, L100.0500 ####[facility] [address] [place], [address] Creatinine [Mass/Vol] 1.79 mg/dL High 0.55-1.[address] [facility] Comment on above: Result Comment: The validity of the calculated GFR GFRAA in patients over70 years has not been determined. Clinical correlation isessential. Performed By: #### L 500.4050, L100.0500 ####[facility] [address] [place], [address] EST GFR - AA 37 mL/min Low >60 [facility] Comment on above: Result Comment: Afri can [place] GFR Calc Performed By: #### L 500.4050, L100.0500 ####[facility] [address] [place], [address] GAP 4 Low 5-15 [facility] Comment on above: Performed By: #### L 500.4050, L100.0500 ####[facility] [address] [place], [address] GFR/1.73 sq M.predicted among non-blacks MDRD (S/P/Bld) [Vol rate/Area] 31 mL/min/{1.73_m2} Low >60 [facility] Comment on above: Result Comment: Non- GFR Calc Performed By: #### L 500.4050, L100.0500 ####[facility] [address] [place], [address] Globulin (S) [Mass/Vol] 3.8 g/dL Normal 2.2-4.2 [facility] Comment on above: Performed By: #### L 500.4050, L100.0500 ####[facility] [address] [place], [address] Glucose [Mass/Vol] 90 mg/dL Normal 74-106 [facility] Comment on above: Performed By: #### L 500.4050, L100.0500 ####[facility] [address] [place], [address] Potassium [Moles/Vol] 2.6 mmol/L Invalid Interpretation Code 3.5-5.1 [facility] Comment on above: Result Comment: Crit ical Result(s) Called at: 11:16:28 02/29/2024 by: Jamee Addison. Results read back by same. Performed By: #### L 500.4050, L100.0500 ####[facility] [address] [place], [address] Sodium [Moles/Vol] 135 mmol/L Low 136-145 [facility] Comment on above: Performed By: #### L 500.4050, L100.0500 ####[facility] [address] [place], [address] T PROT 5.9 g/dL Low 6.4-8.2 [facility] Comment on above: Performed By: #### L 500.4050, L100.0500 ####[facility] [address] [place], [address] Urea nitrogen [Mass/Vol] 14 mg/dL Normal 7-18 [facility] Comment on above: Performed By: #### L 500.4050, L100.0500 ####[facility] [address] [place], [address] CALCIUM, IONIZEDon 4 CALCIUM IONIZED 4.3 mg/dL Low 4.5-5.3 [facility] Comment on above: Order Comment: Serum , non-CRRT source. Performed By: #### 4 5190 ####[facility] [address] [place] [address] Glenn Gudino M.D. [id number] CBCon 02-25-2024 AUTO NRBC 0.0 % Normal [facility] Comment on above: Performed By: #### 4 [id number] ####[facility] [address] [place] [address] Glenn Gudino M.D. [id number] AUTO NRBC ABS COUNT 0.00 K/mcL Normal 0.00-0.00 [facility] Comment on above: Performed By: #### 4 [id number] ####[facility] [address] [place] [address] 51826 Glenn Gudino M.D. [id number] Erythrocyte distribution width (RBC) [Ratio] 17.2 % High 11.6-14.8 [facility] Comment on above: Performed By: #### 4 [id number] ####[facility] [address] [place], [place] [id number] Glenn Gudino M.D. [id number] Hematocrit (Bld) [Volume fraction] 24.5 % Low 36.0-46.0 [facility] Comment on above: Performed By: #### 4 5218 ####[facility] [address] [place] [address] Glenn Gudino M.D. [id number] Hemoglobin (Bld) [Mass/Vol] 7.6 g/dL Low 12.0-16.0 [facility] Comment on above: Performed By: #### 4 5218 ####[facility] [address] [place] [address] Glenn Gudino M.D. [id number] MCH (RBC) [Entitic mass] 28.6 pg Normal 26.0-34.0 [facility] Comment on above: Performed By: #### 4 5218 ####[facility] [address] [place], [place] [id number] Glenn Gudino M.D. [id number] MCV (RBC) [Entitic vol] 92.1 fL Normal 80.0-100.0 [facility] Comment on above: Performed By: #### 4 [id number] ####[facility] [address] [place], [place] [id number] Glenn Gudino M.D. [id number] MEAN CORPUSCULAR HEMOGLOBIN CONC 31.0 g/dL Normal 31.0-37.0 [facility] Comment on above: Performed By: #### 4 6118 ####[facility] [address] [place], [place] [id number] Glenn Gudino M.D. [id number] Platelet mean volume (Bld) [Entitic vol] 9.4 fL Normal 9.4-12.4 [facility] Comment on above: Performed By: #### 4 6785 ####[facility] [address] [place] [address] 31846 Glenn Gudino M.D. [id number] Platelets (Bld) [#/Vol] 215 10*3/uL Normal 150-400 [facility] Comment on above: Performed By: #### 4 [id number] ####[facility] [address] [place] [address] 82403 Glenn Gudino M.D. [id number] RBC (Bld) [#/Vol] 2.66 10*6/uL Low 4.00-5.20 [facility] Comment on above: Performed By: #### 4 5218 ####[facility] [address] [place] [address] 48473 Glenn Gudino M.D. [id number] WBC (Bld) [#/Vol] 6.32 10*3/uL Normal 4.50-11.00 [facility] Comment on above: Performed By: #### 4 5218 ####[facility] [address] [place] [address] 43461 Glenn Gudino M.D. [id number] Disch Summon 02-25-2024 Disch Summ Normal [facility] MAGNESIUM LEVELon 02-25-2024 Magnesium [Mass/Vol] 2.0 mg/dL Normal 1.6-2.4 [facility] Comment on above: Performed By: #### 4 6109 ####[facility] [address] [place] [address] 18445 Glenn Gudino M.D. [id number] RENAL FUNCTION PANELon 02-24 Albumin [Mass/Vol] 2.6 g/dL Low 3.2-5.[address] [facility] Comment on above: Order Comment: [facility] has implemented the eGFR calculation approach that does not have a coefficient for race that conforms to the NKF-ASN Task Force Recommendations. Performed By: #### 4 6449 ####[facility] [address] [place] [address] 49729 Glenn Gudino M.D. [id number] Anion gap [Moles/Vol] 16 mmol/L Normal 10-20 [facility] Comment on above: Order Comment: [facility] has implemented the eGFR calculation approach that does not have a coefficient for race that conforms to the NKF-ASN Task Force Recommendations. Performed By: #### 4 6449 ####[facility] [address] [place] [address] Glenn Gudino M.D. [id number] Calcium [Mass/Vol] 7.7 mg/dL Low 8.4-10.[address] [facility] Comment on above: Order Comment: [facility] has implemented the eGFR calculation approach that does not have a coefficient for race that conforms to the NKF-ASN Task Force Recommendations. Performed By: #### 4 6449 ####[facility] [address] [place], [place] [id number] Glenn Gudino M.D. [id number] Chloride [Moles/Vol] 95 mmol/L Low 98-108 [facility] Comment on above: Order Comment: [facility] has implemented the eGFR calculation approach that does not have a coefficient for race that conforms to the NKF-ASN Task Force Recommendations. Performed By: #### 4 6449 ####[facility] [address] [place] [address] 10987 Glenn Gudino M.D. [id number] Creatinine [Mass/Vol] 2.62 mg/dL High 0.60-1.10 [facility] Comment on above: Order Comment: [facility] has implemented the eGFR calculation approach that does not have a coefficient for race that conforms to the NKF-ASN Task Force Recommendations. Performed By: #### 4 6449 ####[facility] [address] [place] [address] 99725 Glenn Gudino M.D. [id number] EGFR 20 mL/min/1.73 m2 Low >=60 [facility] Comment on above: Order Comment: [facility] has implemented the eGFR calculation approach that does not have a coefficient for race that conforms to the NKF-ASN Task Force Recommendations. Result Comment: Joi mated GFR was calculated using the 2020 CKD-EPI creatinine equation. Performed By: #### 4 6449 ####[facility] [address] [place], [place] [id number] Glenn Gudino M.D. [id number] Glucose [Mass/Vol] 93 mg/dL Normal 65-[address] [facility] Comment on above: Order Comment: [facility] has implemented the eGFR calculation approach that does not have a coefficient for race that conforms to the NKF-ASN Task Force Recommendations. Performed By: #### 4 6449 ####[facility] [address] [place] [address] 16814 Glenn Gudino M.D. [id number] HCO3 (Bld) [Moles/Vol] 25 mmol/L Normal 21-32 [facility] Comment on above: Order Comment: [facility] has implemented the eGFR calculation approach that does not have a coefficient for race that conforms to the NKF-ASN Task Force Recommendations. Performed By: #### 4 6449 ####[facility] [address] [place] [address] 39986 Glenn Gudino M.D. [id number] Phosphate [Mass/Vol] 4.0 mg/dL Normal 2.8-4.1 [facility] Comment on above: Order Comment: [facility] has implemented the eGFR calculation approach that does not have a coefficient for race that conforms to the NKF-ASN Task Force Recommendations. Performed By: #### 4 6449 ####[facility] [address] [place] [address] 03079 Glenn Gudino M.D. [id number] Potassium [Moles/Vol] 3.8 mmol/L Normal 3.5-5.1 [facility] Comment on above: Order Comment: [facility] has implemented the eGFR calculation approach that does not have a coefficient for race that conforms to the NKF-ASN Task Force Recommendations. Performed By: #### 4 6449 ####[facility] [address] [place] [address] 30869 Glenn Gudino M.D. [id number] Sodium [Moles/Vol] 132 mmol/L Low 135-[address] [facility] Comment on above: Order Comment: [facility] has implemented the eGFR calculation approach that does not have a coefficient for race that conforms to the NKF-ASN Task Force Recommendations. Performed By: #### 4 6449 ####[facility] [address] [place] [address] 69293 Glenn Gudino M.D. [id number] Urea nitrogen [Mass/Vol] 26 mg/dL High 8-25 [facility] Comment on above: Order Comment: [facility] has implemented the eGFR calculation approach that does not have a coefficient for race that conforms to the NKF-ASN Task Force Recommendations. Performed By: #### 4 6449 ####[facility] [address] [place] [address] 57930 Glenn Gudino M.D. [id number] Urea nitrogen/Creatinine [Mass ratio] 9.9 mg/mg Low 10.0-20.0 [facility] Comment on above: Order Comment: [facility] has implemented the eGFR calculation approach that does not have a coefficient for race that conforms to the NKF-ASN Task Force Recommendations. Performed By: #### 4 6449 ####[facility] [address] [place] [address] 25221 Glenn Gudino M.D. [id number] CALCIUM, IONIZEDon 4 CALCIUM IONIZED 4.2 mg/dL Low 4.5-5.3 [facility] Comment on above: Order Comment: Serum , non-CRRT source. Performed By: #### 4 5190 ####[facility] [address] [place], [place] [id number] Glenn Gudino M.D. [id number] CBCon 02-24-2024 AUTO NRBC 0.0 % Normal [facility] Comment on above: Performed By: #### 4 [id number] ####[facility] [address] [place], [place] [id number] Glenn Gudino M.D. [id number] AUTO NRBC ABS COUNT 0.00 K/mcL Normal 0.00-0.00 [facility] Comment on above: Performed By: #### 4 [id number] ####[facility] [address] [place], [place] [id number] Glenn Gudino M.D. [id number] Erythrocyte distribution width (RBC) [Ratio] 17.3 % High 11.6-14.8 [facility] Comment on above: Performed By: #### 4 5218 ####[facility] [address] [place], [place] [id number] Glenn Gudino M.D. [id number] Hematocrit (Bld) [Volume fraction] 24.7 % Low 36.0-46.0 [facility] Comment on above: Performed By: #### 4 5218 ####[facility] [address] [place], [place] [id number] Glenn Gudino M.D. [id number] Hemoglobin (Bld) [Mass/Vol] 7.7 g/dL Low 12.0-16.0 [facility] Comment on above: Performed By: #### 4 5218 ####[facility] [address] [place], [place] [id number] Glenn Gudino M.D. [id number] MCH (RBC) [Entitic mass] 29.2 pg Normal 26.0-34.0 [facility] Comment on above: Performed By: #### 4 [id number] ####[facility] [address] [place] [address] 98320 Glenn Gudino M.D. [id number] MCV (RBC) [Entitic vol] 93.6 fL Normal 80.0-100.0 [facility] Comment on above: Performed By: #### 4 5218 ####[facility] [address] [place], [place] [id number] Glenn Gudino M.D. [id number] MEAN CORPUSCULAR HEMOGLOBIN CONC 31.2 g/dL Normal 31.0-37.0 [facility] Comment on above: Performed By: #### 4 5218 ####[facility] [address] [place] [address] Glenn Gudino M.D. [id number] Platelet mean volume (Bld) [Entitic vol] 9.7 fL Normal 9.4-12.4 [facility] Comment on above: Performed By: #### 4 5218 ####[facility] [address] [place], [place] [id number] Glenn Gudino M.D. [id number] Platelets (Bld) [#/Vol] 222 10*3/uL Normal 150-400 [facility] Comment on above: Performed By: #### 4 5218 ####[facility] [address] [place], [place] [address] Glenn Gudino M.D. [id number] RBC (Bld) [#/Vol] 2.64 10*6/uL Low 4.00-5.20 [facility] Comment on above: Performed By: #### 4 5218 ####[facility] [address] [place], [place] [id number] Glenn Gudino M.D. [id number] WBC (Bld) [#/Vol] 6.53 10*3/uL Normal 4.50-11.00 [facility] Comment on above: Performed By: #### 4 [id number] ####[facility] [address] [place] [address] 37860 Glenn Gudino M.D. [id number] MAGNESIUM LEVELon 02-24-2024 Magnesium [Mass/Vol] 1.5 mg/dL Low 1.6-2.4 [facility] Comment on above: Performed By: #### 4 6109 ####[facility] [address] [place], [place] [id number] Glenn Gudino M.D. [id number] RENAL FUNCTION PANELon 02-23 Albumin [Mass/Vol] 2.5 g/dL Low 3.2-5.[address] [facility] Comment on above: Order Comment: [facility] has implemented the eGFR calculation approach that does not have a coefficient for race that conforms to the NKF-ASN Task Force Recommendations. Performed By: #### 4 6449 ####[facility] [address] [place], [place] [id number] Glenn Gudino M.D. [id number] Anion gap [Moles/Vol] 12 mmol/L Normal 10-20 [facility] Comment on above: Order Comment: [facility] has implemented the eGFR calculation approach that does not have a coefficient for race that conforms to the NKF-ASN Task Force Recommendations. Performed By: #### 4 6449 ####[facility] [address] [place] [address] 84558 Glenn Gudino M.D. [id number] Calcium [Mass/Vol] 7.4 mg/dL Low 8.4-10.[address] [facility] Comment on above: Order Comment: [facility] has implemented the eGFR calculation approach that does not have a coefficient for race that conforms to the NKF-ASN Task Force Recommendations. Performed By: #### 4 6449 ####[facility] [address] [place] [address] 53496 Glenn Gudino M.D. [id number] Chloride [Moles/Vol] 96 mmol/L Low 98-108 [facility] Comment on above: Order Comment: [facility] has implemented the eGFR calculation approach that does not have a coefficient for race that conforms to the NKF-ASN Task Force Recommendations. Performed By: #### 4 6449 ####[facility] [address] [place] [address] 27849 Glenn Gudino M.D. [id number] Creatinine [Mass/Vol] 1.90 mg/dL High 0.60-1.10 [facility] Comment on above: Order Comment: [facility] has implemented the eGFR calculation approach that does not have a coefficient for race that conforms to the NKF-ASN Task Force Recommendations. Performed By: #### 4 6449 ####[facility] [address] [place], [place] [address] Glenn Gudino M.D. [id number] EGFR 30 mL/min/1.73 m2 Low >=60 [facility] Comment on above: Order Comment: [facility] has implemented the eGFR calculation approach that does not have a coefficient for race that conforms to the NKF-ASN Task Force Recommendations. Result Comment: Joi mated GFR was calculated using the 2020 CKD-EPI creatinine equation. Performed By: #### 4 6449 ####[facility] [address] [place] [address] 81489 Glenn Gudino M.D. [id number] Glucose [Mass/Vol] 87 mg/dL Normal 65-[address] [facility] Comment on above: Order Comment: [facility] has implemented the eGFR calculation approach that does not have a coefficient for race that conforms to the NKF-ASN Task Force Recommendations. Performed By: #### 4 6449 ####[facility] [address] [place] [address] 66383 Glenn Gudino M.D. [id number] HCO3 (Bld) [Moles/Vol] 29 mmol/L Normal 21-32 [facility] Comment on above: Order Comment: [facility] has implemented the eGFR calculation approach that does not have a coefficient for race that conforms to the NKF-ASN Task Force Recommendations. Performed By: #### 4 6449 ####[facility] [address] [place] [address] 35492 Glenn Gudino M.D. [id number] Phosphate [Mass/Vol] 3.0 mg/dL Normal 2.8-4.1 [facility] Comment on above: Order Comment: [facility] has implemented the eGFR calculation approach that does not have a coefficient for race that conforms to the NKF-ASN Task Force Recommendations. Performed By: #### 4 6449 ####[facility] [address] [place] [address] 96565 Glenn Gudino M.D. [id number] Potassium [Moles/Vol] 3.6 mmol/L Normal 3.5-5.1 [facility] Comment on above: Order Comment: [facility] has implemented the eGFR calculation approach that does not have a coefficient for race that conforms to the NKF-ASN Task Force Recommendations. Performed By: #### 4 6449 ####[facility] [address] [place] [address] 46469 Glenn Gudino M.D. [id number] Sodium [Moles/Vol] 133 mmol/L Low 135-[address] [facility] Comment on above: Order Comment: [facility] has implemented the eGFR calculation approach that does not have a coefficient for race that conforms to the NKF-ASN Task Force Recommendations. Performed By: #### 4 6449 ####[facility] [address] [place] [address] 65777 Glenn Gudino M.D. [id number] Urea nitrogen [Mass/Vol] 19 mg/dL Normal 8-25 [facility] Comment on above: Order Comment: [facility] has implemented the eGFR calculation approach that does not have a coefficient for race that conforms to the NKF-ASN Task Force Recommendations. Performed By: #### 4 6449 ####[facility] [address] [place] [address] 08691 Glenn Gudino M.D. [id number] Urea nitrogen/Creatinine [Mass ratio] 10.0 mg/mg Normal 10.0-20.0 [facility] Comment on above: Order Comment: [facility] has implemented the eGFR calculation approach that does not have a coefficient for race that conforms to the NKF-ASN Task Force Recommendations. Performed By: #### 4 6449 ####[facility] [address] [place], [place] [id number] Glenn Gudino M.D. [id number] CALCIUM, IONIZEDon CALCIUM IONIZED 4.4 mg/dL Low 4.5-5.3 [facility] Comment on above: Order Comment: Serum , non-CRRT source. Performed By: #### 4 5190 ####[facility] [address] [place], [place] [id number] Glenn Gudino M.D. [id number] CBCon 02-23-2024 AUTO NRBC 0.0 % Normal [facility] Comment on above: Performed By: #### 4 [id number] ####[facility] [address] [place] [address] 85961 Glenn Gudino M.D. [id number] AUTO NRBC ABS COUNT 0.00 K/mcL Normal 0.00-0.00 [facility] Comment on above: Performed By: #### 4 [id number] ####[facility] [address] [place] [address] 12174 Glenn Gudino M.D. [id number] Erythrocyte distribution width (RBC) [Ratio] 17.9 % High 11.6-14.8 [facility] Comment on above: Performed By: #### 4 5218 ####[facility] [address] [place], [place] [id number] Glenn Gudino M.D. [id number] Hematocrit (Bld) [Volume fraction] 26.1 % Low 36.0-46.0 [facility] Comment on above: Performed By: #### 4 5218 ####[facility] [address] [place], [place] [id number] Glenn Gudino M.D. [id number] Hemoglobin (Bld) [Mass/Vol] 8.1 g/dL Low 12.0-16.0 [facility] Comment on above: Performed By: #### 4 5218 ####[facility] [address] [place] [address] Glenn Gudino M.D. [id number] MCH (RBC) [Entitic mass] 28.9 pg Normal 26.0-34.0 [facility] Comment on above: Performed By: #### 4 [id number] ####[facility] [address] [place] [address] Glenn Gudino M.D. [id number] MCV (RBC) [Entitic vol] 93.2 fL Normal 80.0-100.0 [facility] Comment on above: Performed By: #### 4 [id number] ####[facility] [address] [place], [place] [id number] Glenn Gudino M.D. [id number] MEAN CORPUSCULAR HEMOGLOBIN CONC 31.0 g/dL Normal 31.0-37.0 [facility] Comment on above: Performed By: #### 4 5218 ####[facility] [address] [place], [place] [id number] Glenn Gudino M.D. [id number] Platelet mean volume (Bld) [Entitic vol] 9.5 fL Normal 9.4-12.4 [facility] Comment on above: Performed By: #### 4 5243 ####[facility] [address] [place], [place] [id number] Glenn Gudino M.D. [id number] Platelets (Bld) [#/Vol] 232 10*3/uL Normal 150-400 [facility] Comment on above: Performed By: #### 4 [id number] ####[facility] [address] [place] [address] 11064 Glenn Gudino M.D. [id number] RBC (Bld) [#/Vol] 2.80 10*6/uL Low 4.00-5.20 [facility] Comment on above: Performed By: #### 4 [id number] ####[facility] [address] [place] [address] 53145 Glenn Gudino M.D. [id number] WBC (Bld) [#/Vol] 8.31 10*3/uL Normal 4.50-11.00 [facility] Comment on above: Performed By: #### 4 5218 ####[facility] [address] [place] [address] 93808 Glenn Gudino M.D. [id number] CONSULTon 02-23-2024 CONSULT Normal [facility] MAGNESIUM LEVELon 02-23-2024 Magnesium [Mass/Vol] 1.7 mg/dL Normal 1.6-2.4 [facility] Comment on above: Performed By: #### 4 6109 ####[facility] [address] [place] [address] 63744 Glenn Gudino M.D. [id number] RENAL FUNCTION PANELon 02-22 Albumin [Mass/Vol] 2.3 g/dL Low 3.2-5.[address] [facility] Comment on above: Order Comment: [facility] has implemented the eGFR calculation approach that does not have a coefficient for race that conforms to the NKF-ASN Task Force Recommendations. Performed By: #### 4 6449 ####[facility] [address] [place] [address] 10529 Glenn Gudino M.D. [id number] Anion gap [Moles/Vol] 13 mmol/L Normal 10-20 [facility] Comment on above: Order Comment: [facility] has implemented the eGFR calculation approach that does not have a coefficient for race that conforms to the NKF-ASN Task Force Recommendations. Performed By: #### 4 6449 ####[facility] [address] [place] [address] 89688 Glenn Gudino M.D. [id number] Calcium [Mass/Vol] 7.5 mg/dL Low 8.4-10.[address] [facility] Comment on above: Order Comment: [facility] has implemented the eGFR calculation approach that does not have a coefficient for race that conforms to the NKF-ASN Task Force Recommendations. Performed By: #### 4 6449 ####[facility] [address] [place] [address] 28244 Glenn Gudino M.D. [id number] Chloride [Moles/Vol] 98 mmol/L Normal 98-108 [facility] Comment on above: Order Comment: [facility] has implemented the eGFR calculation approach that does not have a coefficient for race that conforms to the NKF-ASN Task Force Recommendations. Performed By: #### 4 6449 ####[facility] [address] [place] [address] 62833 Glenn Gudino M.D. [id number] Creatinine [Mass/Vol] 2.25 mg/dL High 0.60-1.10 [facility] Comment on above: Order Comment: [facility] has implemented the eGFR calculation approach that does not have a coefficient for race that conforms to the NKF-ASN Task Force Recommendations. Performed By: #### 4 6449 ####[facility] [address] [place] [address] 46661 Glenn Gudino M.D. [id number] EGFR 24 mL/min/1.73 m2 Low >=60 [facility] Comment on above: Order Comment: [facility] has implemented the eGFR calculation approach that does not have a coefficient for race that conforms to the NKF-ASN Task Force Recommendations. Result Comment: Joi mated GFR was calculated using the 2020 CKD-EPI creatinine equation. Performed By: #### 4 6449 ####[facility] [address] [place], [place] [id number] Glenn Gudino M.D. [id number] Glucose [Mass/Vol] 114 mg/dL High 65-[address] [facility] Comment on above: Order Comment: [facility] has implemented the eGFR calculation approach that does not have a coefficient for race that conforms to the NKF-ASN Task Force Recommendations. Performed By: #### 4 6449 ####[facility] [address] [place], [place] [id number] Glenn Gudino M.D. [id number] HCO3 (Bld) [Moles/Vol] 27 mmol/L Normal 21-32 [facility] Comment on above: Order Comment: [facility] has implemented the eGFR calculation approach that does not have a coefficient for race that conforms to the NKF-ASN Task Force Recommendations. Performed By: #### 4 6449 ####[facility] [address] [place] [address] 74166 Glenn Gudino M.D. [id number] Phosphate [Mass/Vol] 3.9 mg/dL Normal 2.8-4.1 [facility] Comment on above: Order Comment: [facility] has implemented the eGFR calculation approach that does not have a coefficient for race that conforms to the NKF-ASN Task Force Recommendations. Performed By: #### 4 6449 ####[facility] [address] [place] [address] 15222 Glenn Gudino M.D. [id number] Potassium [Moles/Vol] 3.6 mmol/L Normal 3.5-5.1 [facility] Comment on above: Order Comment: [facility] has implemented the eGFR calculation approach that does not have a coefficient for race that conforms to the NKF-ASN Task Force Recommendations. Performed By: #### 4 6449 ####[facility] [address] [place] [address] 30876 Glenn uGdino M.D. [id number] Sodium [Moles/Vol] 134 mmol/L Low 135-[address] [facility] Comment on above: Order Comment: [facility] has implemented the eGFR calculation approach that does not have a coefficient for race that conforms to the NKF-ASN Task Force Recommendations. Performed By: #### 4 6449 ####[facility] [address] [place] [address] 29124 Glenn Gudino M.D. [id number] Urea nitrogen [Mass/Vol] 26 mg/dL High 8-25 [facility] Comment on above: Order Comment: [facility] has implemented the eGFR calculation approach that does not have a coefficient for race that conforms to the NKF-ASN Task Force Recommendations. Performed By: #### 4 6449 ####[facility] [address] [place] [address] 86303 Glenn Gudino M.D. [id number] Urea nitrogen/Creatinine [Mass ratio] 11.6 mg/mg Normal 10.0-20.0 [facility] Comment on above: Order Comment: [facility] has implemented the eGFR calculation approach that does not have a coefficient for race that conforms to the NKF-ASN Task Force Recommendations. Performed By: #### 4 6449 ####[facility] [address] [place] [address] 43480 Glenn Gudino M.D. [id number] CALCIUM, IONIZEDon 4 CALCIUM IONIZED 4.3 mg/dL Low 4.5-5.3 [facility] Comment on above: Order Comment: Serum , non-CRRT source. Performed By: #### 4 5190 ####[facility] [address] [place] [address] 25319 Glenn Gudino M.D. [id number] CBCon 02-22-2024 AUTO NRBC 0.0 % Normal [facility] Comment on above: Performed By: #### 4 [id number] ####[facility] [address] [place] [address] Glenn Gudino M.D. [id number] AUTO NRBC ABS COUNT 0.00 K/mcL Normal 0.00-0.00 [facility] Comment on above: Performed By: #### 4 [id number] ####[facility] [address] [place] [address] Glenn Gudino M.D. [id number] Erythrocyte distribution width (RBC) [Ratio] 18.2 % High 11.6-14.8 [facility] Comment on above: Performed By: #### 4 [id number] ####[facility] [address] [place] [address] Glenn Gudino M.D. [id number] Hematocrit (Bld) [Volume fraction] 25.0 % Low 36.0-46.0 [facility] Comment on above: Performed By: #### 4 [id number] ####[facility] [address] [place] [address] Glenn Gudino M.D. [id number] Hemoglobin (Bld) [Mass/Vol] 7.9 g/dL Low 12.0-16.0 [facility] Comment on above: Performed By: #### 4 [id number] ####[facility] [address] [place] [address] Glenn Gudino M.D. [id number] MCH (RBC) [Entitic mass] 29.4 pg Normal 26.0-34.0 [facility] Comment on above: Performed By: #### 4 [id number] ####[facility] [address] [place], [place] [id number] Glenn Gudino M.D. [id number] MCV (RBC) [Entitic vol] 92.9 fL Normal 80.0-100.0 [facility] Comment on above: Performed By: #### 4 [id number] ####[facility] [address] [place] [address] 73622 Glenn Gudino M.D. [id number] MEAN CORPUSCULAR HEMOGLOBIN CONC 31.6 g/dL Normal 31.0-37.0 [facility] Comment on above: Performed By: #### 4 [id number] ####[facility] [address] [place] [address] 65273 Glenn Gudino M.D. [id number] Platelet mean volume (Bld) [Entitic vol] 9.4 fL Normal 9.4-12.4 [facility] Comment on above: Performed By: #### 4 [id number] ####[facility] [address] [place], [place] [id number] Glenn Gudino M.D. [id number] Platelets (Bld) [#/Vol] 223 10*3/uL Normal 150-400 [facility] Comment on above: Performed By: #### 4 [id number] ####[facility] [address] [place] [address] 99112 Glenn Gudino M.D. [id number] RBC (Bld) [#/Vol] 2.69 10*6/uL Low 4.00-5.20 [facility] Comment on above: Performed By: #### 4 [id number] ####[facility] [address] [place] [address] 44253 Glenn Gudino M.D. [id number] WBC (Bld) [#/Vol] 15.60 10*3/uL High 4.50-11.00 [facility] Comment on above: Performed By: #### 4 [id number] ####[facility] [address] [place] [address] 56336 Glenn Gudino M.D. [id number] MAGNESIUM LEVELon 09-26-2024 Magnesium [Mass/Vol] 1.7 mg/dL Normal 1.6-2.4 [facility] Comment on above: Performed By: #### 4 6109 ####[facility] [address] [place] [address] Glenn Gudino M.D. [id number] RENAL FUNCTION PANELon 02-21 Albumin [Mass/Vol] 2.4 g/dL Low 3.2-5.[address] [facility] Comment on above: Order Comment: [facility] has implemented the eGFR calculation approach that does not have a coefficient for race that conforms to the NKF-ASN Task Force Recommendations. Performed By: #### 4 6449 ####[facility] [address] [place], [place] [id number] Glenn Gudino M.D. [id number] Anion gap [Moles/Vol] 13 mmol/L Normal 10-20 [facility] Comment on above: Order Comment: [facility] has implemented the eGFR calculation approach that does not have a coefficient for race that conforms to the NKF-ASN Task Force Recommendations. Performed By: #### 4 6449 ####[facility] [address] [place], [place] [id number] Glenn Gudino M.D. [id number] Calcium [Mass/Vol] 7.2 mg/dL Low 8.4-10.[address] [facility] Comment on above: Order Comment: [facility] has implemented the eGFR calculation approach that does not have a coefficient for race that conforms to the NKF-ASN Task Force Recommendations. Performed By: #### 4 6449 ####[facility] [address] [place], [place] [address] Glenn Gudino M.D. [id number] Chloride [Moles/Vol] 98 mmol/L Normal 98-108 [facility] Comment on above: Order Comment: [facility] has implemented the eGFR calculation approach that does not have a coefficient for race that conforms to the NKF-ASN Task Force Recommendations. Performed By: #### 4 6449 ####[facility] [address] [place] [address] 04902 Glenn Gudino M.D. [id number] Creatinine [Mass/Vol] 1.51 mg/dL High 0.60-1.10 [facility] Comment on above: Order Comment: [facility] has implemented the eGFR calculation approach that does not have a coefficient for race that conforms to the NKF-ASN Task Force Recommendations. Performed By: #### 4 6449 ####[facility] [address] [place] [address] 10549 Glenn Gudino M.D. [id number] EGFR 39 mL/min/1.73 m2 Low >=60 [facility] Comment on above: Order Comment: [facility] has implemented the eGFR calculation approach that does not have a coefficient for race that conforms to the NKF-ASN Task Force Recommendations. Result Comment: Joi mated GFR was calculated using the 2020 CKD-EPI creatinine equation. Performed By: #### 4 6449 ####[facility] [address] [place] [address] 19702 Glenn Gudino M.D. [id number] Glucose [Mass/Vol] 140 mg/dL High 65-[address] [facility] Comment on above: Order Comment: [facility] has implemented the eGFR calculation approach that does not have a coefficient for race that conforms to the NKF-ASN Task Force Recommendations. Performed By: #### 4 6449 ####[facility] [address] [place] [address] 00827 Glenn Gudino M.D. [id number] HCO3 (Bld) [Moles/Vol] 28 mmol/L Normal 21-32 [facility] Comment on above: Order Comment: [facility] has implemented the eGFR calculation approach that does not have a coefficient for race that conforms to the NKF-ASN Task Force Recommendations. Performed By: #### 4 6449 ####[facility] [address] [place] [address] 56890 Glenn Gudino M.D. [id number] Phosphate [Mass/Vol] 3.0 mg/dL Normal 2.8-4.1 [facility] Comment on above: Order Comment: [facility] has implemented the eGFR calculation approach that does not have a coefficient for race that conforms to the NKF-ASN Task Force Recommendations. Performed By: #### 4 6449 ####[facility] [address] [place] [address] 01294 Glenn Gudino M.D. [id number] Potassium [Moles/Vol] 3.6 mmol/L Normal 3.5-5.1 [facility] Comment on above: Order Comment: [facility] has implemented the eGFR calculation approach that does not have a coefficient for race that conforms to the NKF-ASN Task Force Recommendations. Performed By: #### 4 6449 ####[facility] [address] [place] [address] 77373 Glenn Gudino M.D. [id number] Sodium [Moles/Vol] 135 mmol/L Normal 135-[address] [facility] Comment on above: Order Comment: [facility] has implemented the eGFR calculation approach that does not have a coefficient for race that conforms to the NKF-ASN Task Force Recommendations. Performed By: #### 4 6449 ####[facility] [address] [place] [address] 55652 Glenn Gudino M.D. [id number] Urea nitrogen [Mass/Vol] 20 mg/dL Normal 8-25 [facility] Comment on above: Order Comment: [facility] has implemented the eGFR calculation approach that does not have a coefficient for race that conforms to the NKF-ASN Task Force Recommendations. Performed By: #### 4 6449 ####[facility] [address] [place], [place] [address] Glenn Gudino M.D. [id number] Urea nitrogen/Creatinine [Mass ratio] 13.2 mg/mg Normal 10.0-20.0 [facility] Comment on above: Order Comment: [facility] has implemented the eGFR calculation approach that does not have a coefficient for race that conforms to the NKF-ASN Task Force Recommendations. Performed By: #### 4 6449 ####[facility] [address] [place] [address] Glenn Gudino M.D. [id number] ANTIBODY IDENTIFICATION-Con 02-21-2024 ANTIBODY IDENTIFICATION-C Normal [facility] Comment on above: Performed By: #### 4 6427_Anti-C ####[facility] [address] [place] [address] Nurys Oneill MD [id number] [facility] CALCIUM, IONIZEDon CALCIUM IONIZED 4.5 mg/dL Normal 4.5-5.3 [facility] Comment on above: Order Comment: Serum , non-CRRT source. Performed By: #### 4 5190 ####[facility] [address] [place], [place] [id number] Glenn Gudino M.D. [id number] CBCon 02-21-2024 AUTO NRBC 0.0 % Normal [facility] Comment on above: Performed By: #### 4 [id number] ####[facility] [address] [place], [place] [id number] Glenn Gudino M.D. [id number] AUTO NRBC ABS COUNT 0.00 K/mcL Normal 0.00-0.00 [facility] Comment on above: Performed By: #### 4 [id number] ####[facility] [address] [place], [place] [id number] Glenn Gudino M.D. [id number] Erythrocyte distribution width (RBC) [Ratio] 18.6 % High 11.6-14.8 [facility] Comment on above: Performed By: #### 4 5218 ####[facility] [address] [place], [place] [address] Glenn Gudino M.D. [id number] Hematocrit (Bld) [Volume fraction] 24.4 % Low 36.0-46.0 [facility] Comment on above: Performed By: #### 4 [id number] ####[facility] [address] [place] [address] Glenn Gudino M.D. [id number] Hemoglobin (Bld) [Mass/Vol] 7.8 g/dL Low 12.0-16.0 [facility] Comment on above: Result Comment: Zuleima pheral smear reviewed manually Performed By: #### 4 5218 ####[facility] [address] [place] [address] Glenn Gudino M.D. [id number] MCH (RBC) [Entitic mass] 29.4 pg Normal 26.0-34.0 [facility] Comment on above: Performed By: #### 4 5218 ####[facility] [address] [place], [place] [id number] Glenn Gudino M.D. [id number] MCV (RBC) [Entitic vol] 92.1 fL Normal 80.0-100.0 [facility] Comment on above: Performed By: #### 4 [id number] ####[facility] [address] [place], [place] [id number] Glenn Gudino M.D. [id number] MEAN CORPUSCULAR HEMOGLOBIN CONC 32.0 g/dL Normal 31.0-37.0 [facility] Comment on above: Performed By: #### 4 [id number] ####[facility] [address] [place], [place] [id number] Glenn Guidno M.D. [id number] Platelet mean volume (Bld) [Entitic vol] 9.5 fL Normal 9.4-12.4 [facility] Comment on above: Performed By: #### 4 [id number] ####[facility] [address] [place] [address] 65655 Glenn Gudino M.D. [id number] Platelets (Bld) [#/Vol] 234 10*3/uL Normal 150-400 [facility] Comment on above: Performed By: #### 4 [id number] ####[facility] [address] [place] [address] 15632 Glenn Gudino M.D. [id number] RBC (Bld) [#/Vol] 2.65 10*6/uL Low 4.00-5.20 [facility] Comment on above: Performed By: #### 4 5218 ####[facility] [address] [place], [place] [id number] Glenn Gudino M.D. [id number] WBC (Bld) [#/Vol] 27.78 10*3/uL High 4.50-11.00 [facility] Comment on above: Performed By: #### 4 [id number] ####[facility] [address] [place] [address] 74173 Glenn Gudino M.D. [id number] CONSULTon 02-21-2024 CONSULT Normal [facility] MAGNESIUM LEVELon 02-21-2024 Magnesium [Mass/Vol] 1.8 mg/dL Normal 1.6-2.4 [facility] Comment on above: Performed By: #### 4 6109 ####[facility] [address] [place], [place] [id number] Glenn Gudino M.D. [id number] POC GLUCOSE - [facility] 024 Glucose [Mass/Vol] 85 mg/dL Normal 65-[address] [facility] Comment on above: Performed By: #### 4 6932 ####[facility] [address] [place] [address] [id number] [facility] RENAL FUNCTION PANELon 02-20 Albumin [Mass/Vol] 2.2 g/dL Low 3.2-5.[address] [facility] Comment on above: Order Comment: [facility] has implemented the eGFR calculation approach that does not have a coefficient for race that conforms to the NKF-ASN Task Force Recommendations. Performed By: #### 4 6449 ####[facility] [address] [place] [address] Glenn Gudino M.D. [id number] Anion gap [Moles/Vol] 18 mmol/L Normal 10-20 [facility] Comment on above: Order Comment: [facility] has implemented the eGFR calculation approach that does not have a coefficient for race that conforms to the NKF-ASN Task Force Recommendations. Performed By: #### 4 6449 ####[facility] [address] [place], [place] [address] Glenn Gudino M.D. [id number] Calcium [Mass/Vol] 7.8 mg/dL Low 8.4-10.[address] [facility] Comment on above: Order Comment: [facility] has implemented the eGFR calculation approach that does not have a coefficient for race that conforms to the NKF-ASN Task Force Recommendations. Performed By: #### 4 6449 ####[facility] [address] [place], [place] [address] Glenn Gudino M.D. [id number] Chloride [Moles/Vol] 99 mmol/L Normal 98-108 [facility] Comment on above: Order Comment: [facility] has implemented the eGFR calculation approach that does not have a coefficient for race that conforms to the NKF-ASN Task Force Recommendations. Performed By: #### 4 6449 ####[facility] [address] [place], [place] [address] Glenn Gudino M.D. [id number] Creatinine [Mass/Vol] 2.59 mg/dL High 0.60-1.10 [facility] Comment on above: Order Comment: [facility] has implemented the eGFR calculation approach that does not have a coefficient for race that conforms to the NKF-ASN Task Force Recommendations. Performed By: #### 4 6449 ####[facility] [address] [place], [place] [address] Glenn Gudino M.D. [id number] EGFR 21 mL/min/1.73 m2 Low >=60 [facility] Comment on above: Order Comment: [facility] has implemented the eGFR calculation approach that does not have a coefficient for race that conforms to the NKF-ASN Task Force Recommendations. Result Comment: Joi mated GFR was calculated using the 2020 CKD-EPI creatinine equation. Performed By: #### 4 6449 ####[facility] [address] [place], [place] [address] Glenn Gudino M.D. [id number] Glucose [Mass/Vol] 64 mg/dL Low 65-[address] [facility] Comment on above: Order Comment: [facility] has implemented the eGFR calculation approach that does not have a coefficient for race that conforms to the NKF-ASN Task Force Recommendations. Performed By: #### 4 6449 ####[facility] [address] [place] [address] 94340 Glenn Gudino M.D. [id number] HCO3 (Bld) [Moles/Vol] 23 mmol/L Normal 21-32 [facility] Comment on above: Order Comment: [facility] has implemented the eGFR calculation approach that does not have a coefficient for race that conforms to the NKF-ASN Task Force Recommendations. Performed By: #### 4 6449 ####[facility] [address] [place] [address] 31855 Glenn Gudino M.D. [id number] Phosphate [Mass/Vol] 5.1 mg/dL High 2.8-4.1 [facility] Comment on above: Order Comment: [facility] has implemented the eGFR calculation approach that does not have a coefficient for race that conforms to the NKF-ASN Task Force Recommendations. Performed By: #### 4 6449 ####[facility] [address] [place] [address] 98014 Glenn Gudino M.D. [id number] Potassium [Moles/Vol] 4.0 mmol/L Normal 3.5-5.1 [facility] Comment on above: Order Comment: [facility] has implemented the eGFR calculation approach that does not have a coefficient for race that conforms to the NKF-ASN Task Force Recommendations. Performed By: #### 4 6449 ####[facility] [address] [place] [address] 88070 Glenn Gudino M.D. [id number] Sodium [Moles/Vol] 136 mmol/L Normal 135-[address] [facility] Comment on above: Order Comment: [facility] has implemented the eGFR calculation approach that does not have a coefficient for race that conforms to the NKF-ASN Task Force Recommendations. Performed By: #### 4 6449 ####[facility] [address] [place] [address] 41250 Glenn Gudino M.D. [id number] Urea nitrogen [Mass/Vol] 39 mg/dL High 8-25 [facility] Comment on above: Order Comment: [facility] has implemented the eGFR calculation approach that does not have a coefficient for race that conforms to the NKF-ASN Task Force Recommendations. Performed By: #### 4 6449 ####[facility] [address] [place] [address] Glenn Gudino M.D. [id number] Urea nitrogen/Creatinine [Mass ratio] 15.1 mg/mg Normal 10.0-20.0 [facility] Comment on above: Order Comment: [facility] has implemented the eGFR calculation approach that does not have a coefficient for race that conforms to the NKF-ASN Task Force Recommendations. Performed By: #### 4 6449 ####[facility] [address] [place] [address] 09455 Glenn Gudino M.D. [id number] TYPE AND SCREENon 02-21-2024 TYPE AND SCREEN ABORH: O Positive AB SCREEN: Positive EXPIRATION DATE: 02/24/2024 23:59 EST Normal [facility] Comment on above: Performed By: #### 4 6619 ####[facility] [address] [place] [address] Nurys Oneill MD [id number] [facility] URINE AEROBIC CULTUREon 01-28 URINE AEROBIC CULTURE URINE CULTURE Three or more morphotypes suggesting probable contamination during specimen (urine) collection. Suggest repeat if clinically indicated Normal [facility] Comment on above: Performed By: #### 4 4053 ####[facility] [address] [place], [place] [id number] Glenn Gudino M.D. [id number] CALCIUM, IONIZEDon CALCIUM IONIZED 4.5 mg/dL Normal 4.5-5.3 [facility] Comment on above: Order Comment: Serum , non-CRRT source. Performed By: #### 4 5190 ####[facility] [address] [place] [address] 12858 Glenn Gudino M.D. [id number] CBCon 02-20-2024 AUTO NRBC 0.0 % Normal [facility] Comment on above: Performed By: #### 4 [id number] ####[facility] [address] [place] [address] 65273 Glenn Gudino M.D. [id number] AUTO NRBC ABS COUNT 0.00 K/mcL Normal 0.00-0.00 [facility] Comment on above: Performed By: #### 4 [id number] ####[facility] [address] [place] [address] 64477 Glenn Gudino M.D. [id number] Erythrocyte distribution width (RBC) [Ratio] 18.7 % High 11.6-14.8 [facility] Comment on above: Performed By: #### 4 [id number] ####[facility] [address] [place] [address] Glenn Gudino M.D. [id number] Hematocrit (Bld) [Volume fraction] 27.2 % Low 36.0-46.0 [facility] Comment on above: Performed By: #### 4 [id number] ####[facility] [address] [place] [address] Glenn Gudino M.D. [id number] Hemoglobin (Bld) [Mass/Vol] 8.6 g/dL Low 12.0-16.0 [facility] Comment on above: Performed By: #### 4 5218 ####[facility] [address] [place] [address] Glenn Gudino M.D. [id number] MCH (RBC) [Entitic mass] 28.9 pg Normal 26.0-34.0 [facility] Comment on above: Performed By: #### 4 [id number] ####[facility] [address] [place] [address] Glenn Gudino M.D. [id number] MCV (RBC) [Entitic vol] 91.3 fL Normal 80.0-100.0 [facility] Comment on above: Performed By: #### 4 [id number] ####[facility] [address] [place] [address] Glenn Gudino M.D. [id number] MEAN CORPUSCULAR HEMOGLOBIN CONC 31.6 g/dL Normal 31.0-37.0 [facility] Comment on above: Performed By: #### 4 5218 ####[facility] [address] [place], [place] [id number] Glenn Gudino M.D. [id number] Platelet mean volume (Bld) [Entitic vol] 9.2 fL Low 9.4-12.4 [facility] Comment on above: Performed By: #### 4 [id number] ####[facility] [address] [place] [address] 39[address] Glenn Gudino M.D. [id number] Platelets (Bld) [#/Vol] 244 10*3/uL Normal 150-400 [facility] Comment on above: Performed By: #### 4 [id number] ####[facility] [address] [place] [address] 82965 Glenn Gudino M.D. [id number] RBC (Bld) [#/Vol] 2.98 10*6/uL Low 4.00-5.20 [facility] Comment on above: Performed By: #### 4 5218 ####[facility] [address] [place], [place] [id number] Glenn Gudino M.D. [id number] WBC (Bld) [#/Vol] 21.11 10*3/uL High 4.50-11.00 [facility] Comment on above: Performed By: #### 4 [id number] ####[facility] [address] [place] [address] Glenn Gudino M.D. [id number] MAGNESIUM LEVELon 02-20-2024 Magnesium [Mass/Vol] 2.0 mg/dL Normal 1.6-2.4 [facility] Comment on above: Performed By: #### 4 6109 ####[facility] [address] [place] [address] 35610 Glenn Gudino M.D. [id number] RENAL FUNCTION PANELon 02-19 Albumin [Mass/Vol] 2.6 g/dL Low 3.2-5.[address] [facility] Comment on above: Order Comment: [facility] has implemented the eGFR calculation approach that does not have a coefficient for race that conforms to the NKF-ASN Task Force Recommendations. Performed By: #### 4 6449 ####[facility] [address] [place] [address] 59275 Glenn Gudino M.D. [id number] Anion gap [Moles/Vol] 16 mmol/L Normal 10-20 [facility] Comment on above: Order Comment: [facility] has implemented the eGFR calculation approach that does not have a coefficient for race that conforms to the NKF-ASN Task Force Recommendations. Performed By: #### 4 6449 ####[facility] [address] [place], [place] [id number] Glenn Gudino M.D. [id number] Calcium [Mass/Vol] 8.2 mg/dL Low 8.4-10.[address] [facility] Comment on above: Order Comment: [facility] has implemented the eGFR calculation approach that does not have a coefficient for race that conforms to the NKF-ASN Task Force Recommendations. Performed By: #### 4 6449 ####[facility] [address] [place], [place] [id number] Glenn Gudino M.D. [id number] Chloride [Moles/Vol] 96 mmol/L Low 98-108 [facility] Comment on above: Order Comment: [facility] has implemented the eGFR calculation approach that does not have a coefficient for race that conforms to the NKF-ASN Task Force Recommendations. Performed By: #### 4 6449 ####[facility] [address] [place] [address] 25224 Glenn Gudino M.D. [id number] Creatinine [Mass/Vol] 1.96 mg/dL High 0.60-1.10 [facility] Comment on above: Order Comment: [facility] has implemented the eGFR calculation approach that does not have a coefficient for race that conforms to the NKF-ASN Task Force Recommendations. Performed By: #### 4 6449 ####[facility] [address] [place], [place] [address] Glenn Gudino M.D. [id number] EGFR 29 mL/min/1.73 m2 Low >=60 [facility] Comment on above: Order Comment: [facility] has implemented the eGFR calculation approach that does not have a coefficient for race that conforms to the NKF-ASN Task Force Recommendations. Result Comment: Joi mated GFR was calculated using the 2020 CKD-EPI creatinine equation. Performed By: #### 4 6449 ####[facility] [address] [place] [address] 42512 Glenn Gudino M.D. [id number] Glucose [Mass/Vol] 99 mg/dL Normal 65-[address] [facility] Comment on above: Order Comment: [facility] has implemented the eGFR calculation approach that does not have a coefficient for race that conforms to the NKF-ASN Task Force Recommendations. Performed By: #### 4 6449 ####[facility] [address] [place], [place] [id number] Glenn Gudino M.D. [id number] HCO3 (Bld) [Moles/Vol] 26 mmol/L Normal 21-32 [facility] Comment on above: Order Comment: [facility] has implemented the eGFR calculation approach that does not have a coefficient for race that conforms to the NKF-ASN Task Force Recommendations. Performed By: #### 4 6449 ####[facility] [address] [place] [address] 23794 Glenn Gudino M.D. [id number] Phosphate [Mass/Vol] 3.4 mg/dL Normal 2.8-4.1 [facility] Comment on above: Order Comment: [facility] has implemented the eGFR calculation approach that does not have a coefficient for race that conforms to the NKF-ASN Task Force Recommendations. Performed By: #### 4 6449 ####[facility] [address] [place] [address] 39456 Glenn Gudino M.D. [id number] Potassium [Moles/Vol] 4.2 mmol/L Normal 3.5-5.1 [facility] Comment on above: Order Comment: [facility] has implemented the eGFR calculation approach that does not have a coefficient for race that conforms to the NKF-ASN Task Force Recommendations. Result Comment: Marisol leblanc Hemolyzed Performed By: #### 4 6449 ####[facility] [address] [place] [address] 81151 Glenn Gudino M.D. [id number] Sodium [Moles/Vol] 134 mmol/L Low 135-[address] [facility] Comment on above: Order Comment: [facility] has implemented the eGFR calculation approach that does not have a coefficient for race that conforms to the NKF-ASN Task Force Recommendations. Performed By: #### 4 6449 ####[facility] [address] [place], [place] [id number] Glenn Gudino M.D. [id number] Urea nitrogen [Mass/Vol] 27 mg/dL High 8-25 [facility] Comment on above: Order Comment: [facility] has implemented the eGFR calculation approach that does not have a coefficient for race that conforms to the NKF-ASN Task Force Recommendations. Performed By: #### 4 6449 ####[facility] [address] [place] [address] 60336 Glenn Gudino M.D. [id number] Urea nitrogen/Creatinine [Mass ratio] 13.8 mg/mg Normal 10.0-20.0 [facility] Comment on above: Order Comment: [facility] has implemented the eGFR calculation approach that does not have a coefficient for race that conforms to the NKF-ASN Task Force Recommendations. Performed By: #### 4 6449 ####[facility] [address] [place] [address] 27594 Glenn Gudino M.D. [id number] XR CHEST PA/APon 02-20-2024 XR CHEST PA/AP Normal [facility] Comment on above: Order Comment: Injur y/Trauma or Illness?:Illness/OtherHow long have you had these symptoms (acute/chronic)?:UnknownReason for exam?:pleural effusionHistory of cancer?:uSurgeries, chemotherapy, or radiation?:uType of Exam?:UnknownAdditional signs and symptoms?:no CALCIUM, IONIZEDon CALCIUM IONIZED 4.7 mg/dL Normal 4.5-5.3 [facility] Comment on above: Order Comment: Serum , non-CRRT source. Performed By: #### 4 5190 ####[facility] [address] [place] [address] Glenn Gudino M.D. [id number] CBCon 02-19-2024 AUTO NRBC 0.0 % Normal [facility] Comment on above: Performed By: #### 4 [id number] ####[facility] [address] [place] [address] Glenn Gudino M.D. [id number] AUTO NRBC ABS COUNT 0.00 K/mcL Normal 0.00-0.00 [facility] Comment on above: Performed By: #### 4 5218 ####[facility] [address] [place], [place] [id number] Glenn Gudino M.D. [id number] Erythrocyte distribution width (RBC) [Ratio] 19.5 % High 11.6-14.8 [facility] Comment on above: Performed By: #### 4 5218 ####[facility] [address] [place], [place] [id number] Glenn Gudino M.D. [id number] Hematocrit (Bld) [Volume fraction] 25.3 % Low 36.0-46.0 [facility] Comment on above: Performed By: #### 4 [id number] ####[facility] [address] [place], [place] [address] Glenn Gudino M.D. [id number] Hemoglobin (Bld) [Mass/Vol] 8.0 g/dL Low 12.0-16.0 [facility] Comment on above: Performed By: #### 4 [id number] ####[facility] [address] [place], [place] [address] Glenn Gudino M.D. [id number] MCH (RBC) [Entitic mass] 29.1 pg Normal 26.0-34.0 [facility] Comment on above: Performed By: #### 4 [id number] ####[facility] [address] [place] [address] Glenn Gudino M.D. [id number] MCV (RBC) [Entitic vol] 92.0 fL Normal 80.0-100.0 [facility] Comment on above: Performed By: #### 4 [id number] ####[facility] [address] [place] [address] Glenn Gudino M.D. [id number] MEAN CORPUSCULAR HEMOGLOBIN CONC 31.6 g/dL Normal 31.0-37.0 [facility] Comment on above: Performed By: #### 4 5218 ####[facility] [address] [place], [place] [address] Glenn Gudino M.D. [id number] Platelet mean volume (Bld) [Entitic vol] 9.7 fL Normal 9.4-12.4 [facility] Comment on above: Performed By: #### 4 5218 ####[facility] [address] [place], [place] [address] Glenn Gudino M.D. [id number] Platelets (Bld) [#/Vol] 235 10*3/uL Normal 150-400 [facility] Comment on above: Performed By: #### 4 [id number] ####[facility] [address] [place], [place] [id number] Glenn Gudino M.D. [id number] RBC (Bld) [#/Vol] 2.75 10*6/uL Low 4.00-5.20 [facility] Comment on above: Performed By: #### 4 [id number] ####[facility] [address] [place] [address] 72651 Glenn Gudino M.D. [id number] WBC (Bld) [#/Vol] 9.65 10*3/uL Normal 4.50-11.00 [facility] Comment on above: Performed By: #### 4 5218 ####[facility] [address] [place] [address] Glenn Gudino M.D. [id number] MAGNESIUM LEVELon 02-19-2024 Magnesium [Mass/Vol] 1.8 mg/dL Normal 1.6-2.4 [facility] Comment on above: Performed By: #### 4 6109 ####[facility] [address] [place] [address] Glenn Gudino M.D. [id number] [facility] Glucose [Mass/Vol] 133 mg/dL High 65-[address] [facility] Comment on above: Performed By: #### 4 6932 ####[facility] [address] [place] [address] [id number] [facility] 02-18 Albumin [Mass/Vol] 2.3 g/dL Low 3.2-5.[address] [facility] Comment on above: Order Comment: [facility] has implemented the eGFR calculation approach that does not have a coefficient for race that conforms to the NKF-ASN Task Force Recommendations. Performed By: #### 4 6449 ####[facility] [address] [place] [address] 74364 Glenn Gudino M.D. [id number] Anion gap [Moles/Vol] 15 mmol/L Normal 10-20 [facility] Comment on above: Order Comment: [facility] has implemented the eGFR calculation approach that does not have a coefficient for race that conforms to the NKF-ASN Task Force Recommendations. Performed By: #### 4 6449 ####[facility] [address] [place] [address] 94646 Glenn Gudino M.D. [id number] Calcium [Mass/Vol] 8.5 mg/dL Normal 8.4-10.[address] [facility] Comment on above: Order Comment: [facility] has implemented the eGFR calculation approach that does not have a coefficient for race that conforms to the NKF-ASN Task Force Recommendations. Performed By: #### 4 6449 ####[facility] [address] [place] [address] 90454 Glenn Gudino M.D. [id number] Chloride [Moles/Vol] 99 mmol/L Normal 98-108 [facility] Comment on above: Order Comment: [facility] has implemented the eGFR calculation approach that does not have a coefficient for race that conforms to the NKF-ASN Task Force Recommendations. Performed By: #### 4 6449 ####[facility] [address] [place] [address] 11599 Glenn Gudino M.D. [id number] Creatinine [Mass/Vol] 2.11 mg/dL High 0.60-1.10 [facility] Comment on above: Order Comment: [facility] has implemented the eGFR calculation approach that does not have a coefficient for race that conforms to the NKF-ASN Task Force Recommendations. Performed By: #### 4 6449 ####[facility] [address] [place] [address] 83832 Glenn Gudino M.D. [id number] EGFR 26 mL/min/1.73 m2 Low >=60 [facility] Comment on above: Order Comment: [facility] has implemented the eGFR calculation approach that does not have a coefficient for race that conforms to the NKF-ASN Task Force Recommendations. Result Comment: Joi mated GFR was calculated using the 2020 CKD-EPI creatinine equation. Performed By: #### 4 6449 ####[facility] [address] [place], [place] [id number] Glenn Gudino M.D. [id number] Glucose [Mass/Vol] 127 mg/dL High 65-[address] [facility] Comment on above: Order Comment: [facility] has implemented the eGFR calculation approach that does not have a coefficient for race that conforms to the NKF-ASN Task Force Recommendations. Performed By: #### 4 6449 ####[facility] [address] [place] [address] Glenn Gudino M.D. [id number] HCO3 (Bld) [Moles/Vol] 28 mmol/L Normal 21-32 [facility] Comment on above: Order Comment: [facility] has implemented the eGFR calculation approach that does not have a coefficient for race that conforms to the NKF-ASN Task Force Recommendations. Performed By: #### 4 6449 ####[facility] [address] [place] [address] Glenn Gudino M.D. [id number] Phosphate [Mass/Vol] 4.5 mg/dL High 2.8-4.1 [facility] Comment on above: Order Comment: [facility] has implemented the eGFR calculation approach that does not have a coefficient for race that conforms to the NKF-ASN Task Force Recommendations. Performed By: #### 4 6449 ####[facility] [address] [place], [place] [address] Glenn Gudino M.D. [id number] Potassium [Moles/Vol] 5.5 mmol/L High 3.5-5.1 [facility] Comment on above: Order Comment: [facility] has implemented the eGFR calculation approach that does not have a coefficient for race that conforms to the NKF-ASN Task Force Recommendations. Result Comment: Slig htly Hemolyzed Performed By: #### 4 6449 ####[facility] [address] [place], [place] [address] Glenn Gudino M.D. [id number] Sodium [Moles/Vol] 136 mmol/L Normal 135-[address] [facility] Comment on above: Order Comment: [facility] has implemented the eGFR calculation approach that does not have a coefficient for race that conforms to the NKF-ASN Task Force Recommendations. Performed By: #### 4 6449 ####[facility] [address] [place] [address] Glenn Gudino M.D. [id number] Urea nitrogen [Mass/Vol] 39 mg/dL High 8-25 [facility] Comment on above: Order Comment: [facility] has implemented the eGFR calculation approach that does not have a coefficient for race that conforms to the NKF-ASN Task Force Recommendations. Performed By: #### 4 6449 ####[facility] [address] [place] [address] Glenn Gudino M.D. [id number] Urea nitrogen/Creatinine [Mass ratio] 18.5 mg/mg Normal 10.0-20.0 [facility] Comment on above: Order Comment: [facility] has implemented the eGFR calculation approach that does not have a coefficient for race that conforms to the NKF-ASN Task Force Recommendations. Performed By: #### 4 6449 ####[facility] [address] [place] [address] Glenn Gudino M.D. [id number] XR CHEST PA/APon 02-19-2024 XR CHEST PA/AP [facility] Comment on above: Order Comment: Injur y/Trauma or Illness?:Illness/OtherHow long have you had these symptoms (acute/chronic)?:AcuteReason for exam?:pleural effusionHistory of cancer?:uSurgeries, chemotherapy, or radiation?:uType of Exam?:Subsequent/Follow-upAdditional signs and symptoms?:pleural effusion ANTIBODY IDENTIFICATION-FYAo n 02-18-2024 ANTIBODY IDENTIFICATION-FYA Normal [facility] Comment on above: Performed By: #### 4 6427_Anti-Fya ####[facility] [address] [place] [address] Nurys Oneill MD [id number] RMHTS CBCon 02-18-2024 AUTO NRBC 0.0 % Normal [facility] Comment on above: Performed By: #### 4 [id number] ####[facility] [address] [place] [address] Glenn Gudino M.D. [id number] AUTO NRBC ABS COUNT 0.00 K/mcL Normal 0.00-0.00 [facility] Comment on above: Performed By: #### 4 [id number] ####[facility] [address] [place] [address] Glenn Gudino M.D. [id number] Erythrocyte distribution width (RBC) [Ratio] 19.9 % High 11.6-14.8 [facility] Comment on above: Performed By: #### 4 5218 ####[facility] [address] [place] [address] Glenn Gudino M.D. [id number] Hematocrit (Bld) [Volume fraction] 27.8 % Low 36.0-46.0 [facility] Comment on above: Performed By: #### 4 [id number] ####[facility] [address] [place], [place] [address] Glenn Gudino M.D. [id number] Hemoglobin (Bld) [Mass/Vol] 8.9 g/dL Low 12.0-16.0 [facility] Comment on above: Performed By: #### 4 0918 ####[facility] [address] [place], [place] [id number] Glenn Gudino M.D. [id number] MCH (RBC) [Entitic mass] 29.6 pg Normal 26.0-34.0 [facility] Comment on above: Performed By: #### 4 0418 ####[facility] [address] [place] [address] 64328 Glenn Gudino M.D. [id number] MCV (RBC) [Entitic vol] 92.4 fL Normal 80.0-100.0 [facility] Comment on above: Performed By: #### 4 [id number] ####[facility] [address] [place], [place] [id number] Glenn Gudino M.D. [id number] MEAN CORPUSCULAR HEMOGLOBIN CONC 32.0 g/dL Normal 31.0-37.0 [facility] Comment on above: Performed By: #### 4 [id number] ####[facility] [address] [place], [place] [id number] Glenn Gudino M.D. [id number] Platelet mean volume (Bld) [Entitic vol] 9.6 fL Normal 9.4-12.4 [facility] Comment on above: Performed By: #### 4 [id number] ####[facility] [address] [place] [address] 14084 Glenn Gudino M.D. [id number] Platelets (Bld) [#/Vol] 222 10*3/uL Normal 150-400 [facility] Comment on above: Performed By: #### 4 [id number] ####[facility] [address] [place] [address] 79306 Glenn Gudino M.D. [id number] RBC (Bld) [#/Vol] 3.01 10*6/uL Low 4.00-5.20 [facility] Comment on above: Performed By: #### 4 [id number] ####[facility] [address] [place] [address] 17969 Glenn Gudino M.D. [id number] WBC (Bld) [#/Vol] 14.78 10*3/uL High 4.50-11.00 [facility] Comment on above: Performed By: #### 4 [id number] ####[facility] [address] [place] [address] 35115 Glenn Gudino M.D. [id number] MAGNESIUM LEVELon 02-18-2024 Magnesium [Mass/Vol] 1.9 mg/dL Normal 1.6-2.4 [facility] Comment on above: Performed By: #### 4 6109 ####[facility] [address] [place] [address] Glenn Gudino M.D. [id number] [facility] Glucose [Mass/Vol] 114 mg/dL High 65-[address] [facility] Comment on above: Performed By: #### 4 6932 ####[facility] [address] [place] [address] [id number] [facility] RENAL FUNCTION PANELon 02-17 Albumin [Mass/Vol] 2.3 g/dL Low 3.2-5.[address] [facility] Comment on above: Order Comment: [facility] has implemented the eGFR calculation approach that does not have a coefficient for race that conforms to the NKF-ASN Task Force Recommendations. Performed By: #### 4 6449 ####[facility] [address] [place], [place] [id number] Glenn Gudino M.D. [id number] Anion gap [Moles/Vol] 16 mmol/L Normal 10-20 [facility] Comment on above: Order Comment: [facility] has implemented the eGFR calculation approach that does not have a coefficient for race that conforms to the NKF-ASN Task Force Recommendations. Performed By: #### 4 6449 ####[facility] [address] [place] [address] 67623 Glenn Gudino M.D. [id number] Calcium [Mass/Vol] 8.2 mg/dL Low 8.4-10.[address] [facility] Comment on above: Order Comment: [facility] has implemented the eGFR calculation approach that does not have a coefficient for race that conforms to the NKF-ASN Task Force Recommendations. Performed By: #### 4 6449 ####[facility] [address] [place] [address] 80293 Glenn Gudino M.D. [id number] Chloride [Moles/Vol] 96 mmol/L Low 98-108 [facility] Comment on above: Order Comment: [facility] has implemented the eGFR calculation approach that does not have a coefficient for race that conforms to the NKF-ASN Task Force Recommendations. Performed By: #### 4 6449 ####[facility] [address] [place] [address] 00381 Glenn Gudino M.D. [id number] Creatinine [Mass/Vol] 2.72 mg/dL High 0.60-1.10 [facility] Comment on above: Order Comment: [facility] has implemented the eGFR calculation approach that does not have a coefficient for race that conforms to the NKF-ASN Task Force Recommendations. Performed By: #### 4 6449 ####[facility] [address] [place] [address] 36547 Glenn Gudino M.D. [id number] EGFR 19 mL/min/1.73 m2 Low >=60 [facility] Comment on above: Order Comment: [facility] has implemented the eGFR calculation approach that does not have a coefficient for race that conforms to the NKF-ASN Task Force Recommendations. Result Comment: Joi mated GFR was calculated using the 2020 CKD-EPI creatinine equation. Performed By: #### 4 6449 ####[facility] [address] [place] [address] 744[address] Glenn Gudino M.D. [id number] Glucose [Mass/Vol] 159 mg/dL High 65-[address] [facility] Comment on above: Order Comment: [facility] has implemented the eGFR calculation approach that does not have a coefficient for race that conforms to the NKF-ASN Task Force Recommendations. Performed By: #### 4 6449 ####[facility] [address] [place] [address] 89417 Glenn Gudino M.D. [id number] HCO3 (Bld) [Moles/Vol] 25 mmol/L Normal 21-32 [facility] Comment on above: Order Comment: [facility] has implemented the eGFR calculation approach that does not have a coefficient for race that conforms to the NKF-ASN Task Force Recommendations. Performed By: #### 4 6449 ####[facility] [address] [place] [address] 58083 Glenn Gudino M.D. [id number] Phosphate [Mass/Vol] 5.4 mg/dL High 2.8-4.1 [facility] Comment on above: Order Comment: [facility] has implemented the eGFR calculation approach that does not have a coefficient for race that conforms to the NKF-ASN Task Force Recommendations. Performed By: #### 4 6449 ####[facility] [address] [place] [address] 84848 Glenn Gudino M.D. [id number] Potassium [Moles/Vol] 6.9 mmol/L Off scale high 3.5-5.1 [facility] Comment on above: Order Comment: [facility] has implemented the eGFR calculation approach that does not have a coefficient for race that conforms to the NKF-ASN Task Force Recommendations. Performed By: #### 4 6449 ####[facility] [address] [place] [address] 38573 Glenn Gudino M.D. [id number] Sodium [Moles/Vol] 130 mmol/L Low 135-[address] [facility] Comment on above: Order Comment: [facility] has implemented the eGFR calculation approach that does not have a coefficient for race that conforms to the NKF-ASN Task Force Recommendations. Performed By: #### 4 6449 ####[facility] [address] [place] [address] 83186 Glenn Gudino M.D. [id number] Urea nitrogen [Mass/Vol] 56 mg/dL High 8-25 [facility] Comment on above: Order Comment: [facility] has implemented the eGFR calculation approach that does not have a coefficient for race that conforms to the NKF-ASN Task Force Recommendations. Performed By: #### 4 6449 ####[facility] [address] [place] [address] Glenn Gudino M.D. [id number] Urea nitrogen/Creatinine [Mass ratio] 20.6 mg/mg High 10.0-20.0 [facility] Comment on above: Order Comment: [facility] has implemented the eGFR calculation approach that does not have a coefficient for race that conforms to the NKF-ASN Task Force Recommendations. Performed By: #### 4 6449 ####[facility] [address] [place] [address] Glenn Gudino M.D. [id number] TYPE AND SCREENon 02-18-2024 TYPE AND SCREEN Normal [facility] Comment on above: Performed By: #### 4 6619 ####[facility] [address] [place] [address] Nurys Oneill MD [id number] [facility] CALCIUM, IONIZEDon CALCIUM IONIZED 4.5 mg/dL Normal 4.5-5.3 [facility] Comment on above: Order Comment: Serum , non-CRRT source. Performed By: #### 4 5190 ####[facility] [address] [place] [address] Glenn Gudino M.D. [id number] CBCon 02-17-2024 AUTO NRBC 0.0 % Normal [facility] Comment on above: Performed By: #### 4 5218 ####[facility] [address] [place], [place] [id number] Glenn Gudino M.D. [id number] AUTO NRBC ABS COUNT 0.00 K/mcL Normal 0.00-0.00 [facility] Comment on above: Performed By: #### 4 5218 ####[facility] [address] [place], [place] [id number] Glenn Gudino M.D. [id number] Erythrocyte distribution width (RBC) [Ratio] 20.7 % High 11.6-14.8 [facility] Comment on above: Performed By: #### 4 5218 ####[facility] [address] [place] [address] Glenn Gudino M.D. [id number] Hematocrit (Bld) [Volume fraction] 22.3 % Low 36.0-46.0 [facility] Comment on above: Performed By: #### 4 5218 ####[facility] [address] [place], [place] [id number] Glenn Gudino M.D. [id number] Hemoglobin (Bld) [Mass/Vol] 6.9 g/dL Off scale low 12.0-16.0 [facility] Comment on above: Result Comment: Resu lts called and read back verified by:.[id number] Performed By: #### 4 5218 ####[facility] [address] [place], [place] [id number] Glenn Gudino M.D. [id number] MCH (RBC) [Entitic mass] 29.6 pg Normal 26.0-34.0 [facility] Comment on above: Performed By: #### 4 5218 ####[facility] [address] [place], [place] [id number] Glenn Gudino M.D. [id number] MCV (RBC) [Entitic vol] 95.7 fL Normal 80.0-100.0 [facility] Comment on above: Performed By: #### 4 5218 ####[facility] [address] [place] [address] Glenn Gudino M.D. [id number] MEAN CORPUSCULAR HEMOGLOBIN CONC 30.9 g/dL Low 31.0-37.0 [facility] Comment on above: Performed By: #### 4 5218 ####[facility] [address] [place] [address] 04168 Glenn Gudino M.D. [id number] Platelet mean volume (Bld) [Entitic vol] 10.0 fL Normal 9.4-12.4 [facility] Comment on above: Performed By: #### 4 5218 ####[facility] [address] [place] [address] 78482 Glenn Gudino M.D. [id number] Platelets (Bld) [#/Vol] 187 10*3/uL Normal 150-400 [facility] Comment on above: Performed By: #### 4 5218 ####[facility] [address] [place], [place] [id number] Glenn Gudino M.D. [id number] RBC (Bld) [#/Vol] 2.33 10*6/uL Low 4.00-5.20 [facility] Comment on above: Performed By: #### 4 5218 ####[facility] [address] [place] [address] 67465 Glenn Gudino M.D. [id number] WBC (Bld) [#/Vol] 13.82 10*3/uL High 4.50-11.00 [facility] Comment on above: Performed By: #### 4 5218 ####[facility] [address] [place] [address] 69873 Glenn Gudino M.D. [id number] HEMOGLOBIN AND HEMATOCRITon 02-17-2024 Hematocrit (Bld) [Volume fraction] 27.0 % Low 36.0-46.0 [facility] Comment on above: Performed By: #### 4 6909 ####[facility] [address] [place], [place] [id number] Glenn Gudino M.D. [id number] Hemoglobin (Bld) [Mass/Vol] 8.5 g/dL Low 12.0-16.0 [facility] Comment on above: Performed By: #### 4 6909 ####[facility] [address] [place] [address] Glenn Gudino M.D. [id number] MAGNESIUM LEVELon 02-17-2024 Magnesium [Mass/Vol] 2.0 mg/dL Normal 1.6-2.4 [facility] Comment on above: Performed By: #### 4 6109 ####[facility] [address] [place] [address] Glenn Gudino M.D. [id number] [facility] Glucose [Mass/Vol] 116 mg/dL High 65-[address] [facility] Comment on above: Performed By: #### 4 6932 ####[facility] [address] [place] [address] [id number] [facility] Glucose [Mass/Vol] 147 mg/dL High 65-[address] [facility] Comment on above: Performed By: #### 4 6932 ####[facility] [address] [place] [address] [id number] [facility] RENAL FUNCTION PANELon 02-16 Albumin [Mass/Vol] 2.1 g/dL Low 3.2-5.[address] [facility] Comment on above: Order Comment: [facility] has implemented the eGFR calculation approach that does not have a coefficient for race that conforms to the NKF-ASN Task Force Recommendations. Performed By: #### 4 6449 ####[facility] [address] [place], [place] [id number] Glenn Gudino M.D. [id number] Anion gap [Moles/Vol] 12 mmol/L Normal 10-20 [facility] Comment on above: Order Comment: [facility] has implemented the eGFR calculation approach that does not have a coefficient for race that conforms to the NKF-ASN Task Force Recommendations. Performed By: #### 4 6449 ####[facility] [address] [place] [address] 98374 Glenn Gudino M.D. [id number] Calcium [Mass/Vol] 7.7 mg/dL Low 8.4-10.[address] [facility] Comment on above: Order Comment: [facility] has implemented the eGFR calculation approach that does not have a coefficient for race that conforms to the NKF-ASN Task Force Recommendations. Performed By: #### 4 6449 ####[facility] [address] [place] [address] 38665 Glenn Gudino M.D. [id number] Chloride [Moles/Vol] 97 mmol/L Low 98-108 [facility] Comment on above: Order Comment: [facility] has implemented the eGFR calculation approach that does not have a coefficient for race that conforms to the NKF-ASN Task Force Recommendations. Performed By: #### 4 6449 ####[facility] [address] [place] [address] 53036 Glenn Gudino M.D. [id number] Creatinine [Mass/Vol] 2.06 mg/dL High 0.60-1.10 [facility] Comment on above: Order Comment: [facility] has implemented the eGFR calculation approach that does not have a coefficient for race that conforms to the NKF-ASN Task Force Recommendations. Performed By: #### 4 6449 ####[facility] [address] [place] [address] 13473 Glenn Gudino M.D. [id number] EGFR 27 mL/min/1.73 m2 Low >=60 [facility] Comment on above: Order Comment: [facility] has implemented the eGFR calculation approach that does not have a coefficient for race that conforms to the NKF-ASN Task Force Recommendations. Result Comment: Joi mated GFR was calculated using the 2020 CKD-EPI creatinine equation. Performed By: #### 4 6449 ####[facility] [address] [place] [address] 68905 Glenn Gudino M.D. [id number] Glucose [Mass/Vol] 145 mg/dL High 65-[address] [facility] Comment on above: Order Comment: [facility] has implemented the eGFR calculation approach that does not have a coefficient for race that conforms to the NKF-ASN Task Force Recommendations. Performed By: #### 4 6449 ####[facility] [address] [place] [address] 46210 Glenn Gudino M.D. [id number] HCO3 (Bld) [Moles/Vol] 28 mmol/L Normal 21-32 [facility] Comment on above: Order Comment: [facility] has implemented the eGFR calculation approach that does not have a coefficient for race that conforms to the NKF-ASN Task Force Recommendations. Performed By: #### 4 6449 ####[facility] [address] [place] [address] 86394 Glenn Gudino M.D. [id number] Phosphate [Mass/Vol] 3.6 mg/dL Normal 2.8-4.1 [facility] Comment on above: Order Comment: [facility] has implemented the eGFR calculation approach that does not have a coefficient for race that conforms to the NKF-ASN Task Force Recommendations. Performed By: #### 4 6449 ####[facility] [address] [place] [address] 65642 Glenn Gudino M.D. [id number] Potassium [Moles/Vol] 5.4 mmol/L High 3.5-5.1 [facility] Comment on above: Order Comment: [facility] has implemented the eGFR calculation approach that does not have a coefficient for race that conforms to the NKF-ASN Task Force Recommendations. Performed By: #### 4 6449 ####[facility] [address] [place] [address] 22580 Glenn Gudino M.D. [id number] Sodium [Moles/Vol] 132 mmol/L Low 135-[address] [facility] Comment on above: Order Comment: [facility] has implemented the eGFR calculation approach that does not have a coefficient for race that conforms to the NKF-ASN Task Force Recommendations. Performed By: #### 4 6449 ####[facility] [address] [place], [place] [id number] Glenn Gudino M.D. [id number] Urea nitrogen [Mass/Vol] 43 mg/dL High 8-25 [facility] Comment on above: Order Comment: [facility] has implemented the eGFR calculation approach that does not have a coefficient for race that conforms to the NKF-ASN Task Force Recommendations. Performed By: #### 4 6449 ####[facility] [address] [place], [place] [address] Glenn Gudino M.D. [id number] Urea nitrogen/Creatinine [Mass ratio] 20.9 mg/mg High 10.0-20.0 [facility] Comment on above: Order Comment: [facility] has implemented the eGFR calculation approach that does not have a coefficient for race that conforms to the NKF-ASN Task Force Recommendations. Performed By: #### 4 6449 ####[facility] [address] [place] [address] 54394 Glenn Gudino M.D. [id number] CALCIUM, IONIZEDon 4 CALCIUM IONIZED 4.8 mg/dL Normal 4.5-5.3 [facility] Comment on above: Order Comment: Serum , non-CRRT source. Performed By: #### 4 5190 ####[facility] [address] [place] [address] 31203 Glenn Gudino M.D. [id number] CALCIUM IONIZED 4.5 mg/dL Normal 4.5-5.3 [facility] Comment on above: Order Comment: Serum , non-CRRT source. Performed By: #### 4 5190 ####[facility] [address] [place], [place] [address] Glenn Gudino M.D. [id number] CBCon 02-16-2024 AUTO NRBC 0.0 % Normal [facility] Comment on above: Performed By: #### 4 [id number] ####[facility] [address] [place] [address] Glenn Gudino M.D. [id number] AUTO NRBC ABS COUNT 0.00 K/mcL Normal 0.00-0.00 [facility] Comment on above: Performed By: #### 4 5218 ####[facility] [address] [place] [address] Glenn Gudino M.D. [id number] Erythrocyte distribution width (RBC) [Ratio] 20.1 % High 11.6-14.8 [facility] Comment on above: Performed By: #### 4 5218 ####[facility] [address] [place], [place] [id number] Glenn Gudino M.D. [id number] Hematocrit (Bld) [Volume fraction] 22.6 % Low 36.0-46.0 [facility] Comment on above: Performed By: #### 4 5218 ####[facility] [address] [place], [place] [address] Glenn Gudino M.D. [id number] Hemoglobin (Bld) [Mass/Vol] 7.0 g/dL Low 12.0-16.0 [facility] Comment on above: Performed By: #### 4 5218 ####[facility] [address] [place], [place] [id number] Glenn Gudino M.D. [id number] MCH (RBC) [Entitic mass] 28.6 pg Normal 26.0-34.0 [facility] Comment on above: Performed By: #### 4 [id number] ####[facility] [address] [place] [address] 30890 Glenn Gudino M.D. [id number] MCV (RBC) [Entitic vol] 92.2 fL Normal 80.0-100.0 [facility] Comment on above: Performed By: #### 4 5218 ####[facility] [address] [place] [address] Glenn Gudino M.D. [id number] MEAN CORPUSCULAR HEMOGLOBIN CONC 31.0 g/dL Normal 31.0-37.0 [facility] Comment on above: Performed By: #### 4 5218 ####[facility] [address] [place], [place] [id number] Glenn Gudino M.D. [id number] Platelet mean volume (Bld) [Entitic vol] 9.7 fL Normal 9.4-12.4 [facility] Comment on above: Performed By: #### 4 5218 ####[facility] [address] [place], [place] [id number] Glenn Gudino M.D. [id number] Platelets (Bld) [#/Vol] 203 10*3/uL Normal 150-400 [facility] Comment on above: Performed By: #### 4 [id number] ####[facility] [address] [place], [place] [id number] Glenn Gudino M.D. [id number] RBC (Bld) [#/Vol] 2.45 10*6/uL Low 4.00-5.20 [facility] Comment on above: Performed By: #### 4 5218 ####[facility] [address] [place], [place] [address] Glenn Gudino M.D. [id number] WBC (Bld) [#/Vol] 14.40 10*3/uL High 4.50-11.00 [facility] Comment on above: Performed By: #### 4 5218 ####[facility] [address] [place] [address] Glenn Gudino M.D. [id number] AUTO NRBC 0.0 % Normal [facility] Comment on above: Performed By: #### 4 5218 ####[facility] [address] [place] [address] Glenn Gudino M.D. [id number] AUTO NRBC ABS COUNT 0.00 K/mcL Normal 0.00-0.00 [facility] Comment on above: Performed By: #### 4 5218 ####[facility] [address] [place] [address] Glenn Gudino M.D. [id number] Erythrocyte distribution width (RBC) [Ratio] 19.9 % High 11.6-14.8 [facility] Comment on above: Performed By: #### 4 5218 ####[facility] [address] [place] [address] Glenn Gudino M.D. [id number] Hematocrit (Bld) [Volume fraction] 14.9 % Low 36.0-46.0 [facility] Comment on above: Result Comment: Repe ated verified Performed By: #### 4 5218 ####[facility] [address] [place] [address] Glenn Gudino M.D. [id number] Hemoglobin (Bld) [Mass/Vol] 4.6 g/dL Off scale low 12.0-16.0 [facility] Comment on above: Result Comment: Resu lts called and read back verified by:.[id number] Performed By: #### 4 5218 ####[facility] [address] [place], [place] [id number] Glenn Gudino M.D. [id number] MCH (RBC) [Entitic mass] 29.1 pg Normal 26.0-34.0 [facility] Comment on above: Performed By: #### 4 5218 ####[facility] [address] [place] [address] 07637 Glenn Gudino M.D. [id number] MCV (RBC) [Entitic vol] 94.3 fL Normal 80.0-100.0 [facility] Comment on above: Performed By: #### 4 5218 ####[facility] [address] [place], [place] [id number] Glenn Gudino M.D. [id number] MEAN CORPUSCULAR HEMOGLOBIN CONC 30.9 g/dL Low 31.0-37.0 [facility] Comment on above: Performed By: #### 4 5218 ####[facility] [address] [place] [address] Glenn Gudino M.D. [id number] Platelet mean volume (Bld) [Entitic vol] 9.5 fL Normal 9.4-12.4 [facility] Comment on above: Performed By: #### 4 5218 ####[facility] [address] [place], [place] [id number] Glenn Gudino M.D. [id number] Platelets (Bld) [#/Vol] 286 10*3/uL Normal 150-400 [facility] Comment on above: Performed By: #### 4 [id number] ####[facility] [address] [place] [address] 86465 Glenn Gudino M.D. [id number] RBC (Bld) [#/Vol] 1.58 10*6/uL Low 4.00-5.20 [facility] Comment on above: Performed By: #### 4 5218 ####[facility] [address] [place], [place] [id number] Glenn Gudino M.D. [id number] WBC (Bld) [#/Vol] 21.59 10*3/uL High 4.50-11.[address] [facility] Comment on above: Performed By: #### 4 5218 ####[facility] [address] [place], [place] [address] Glenn Gudino M.D. [id number] HEMOGLOBIN A1Con 02-16-2024 Glucose [Mass/Vol] 103 mg/dL Normal 74-[address] [facility] Comment on above: Order Comment: Irina l: 4.2% - 5.6%Increased risk for diabetes: 5.7% - 6.4%Diabetes: >= 6.5%Pediatrics: No established reference rangeEstimated average glucose: 74-114 mg/dL Performed By: #### 4 8202 ####[facility] [address] [place], [place] [address] Glenn Gudino M.D. [id number] HbA1c (Bld) [Mass fraction] 5.2 % Normal 4.2-5.6 [facility] Comment on above: Order Comment: Irina l: 4.2% - 5.6%Increased risk for diabetes: 5.7% - 6.4%Diabetes: >= 6.5%Pediatrics: No established reference rangeEstimated average glucose: 74-114 mg/dL Performed By: #### 4 8202 ####[facility] [address] [place], [place] [id number] Glenn Gudino M.D. [id number] HEMOGLOBIN AND HEMATOCRITon 02-16-2024 Hematocrit (Bld) [Volume fraction] 23.6 % Low 36.0-46.0 [facility] Comment on above: Performed By: #### 4 6909 ####[facility] [address] [place], [place] [id number] Glenn Gudino M.D. [id number] Hemoglobin (Bld) [Mass/Vol] 7.5 g/dL Low 12.0-16.0 [facility] Comment on above: Result Comment: Resu lts checked Performed By: #### 4 6909 ####[facility] [address] [place], [place] [id number] Glenn Gudino M.D. [id number] MAGNESIUM LEVELon 02-16-2024 Magnesium [Mass/Vol] 1.8 mg/dL Normal 1.6-2.4 [facility] Comment on above: Performed By: #### 4 6109 ####[facility] [address] [place] [address] Glenn Gudino M.D. [id number] Magnesium [Mass/Vol] 1.9 mg/dL Normal 1.6-2.4 [facility] Comment on above: Performed By: #### 4 6109 ####[facility] [address] [place] [address] Glenn Gudino M.D. [id number] POC GLUCOSE - [facility] 024 Glucose [Mass/Vol] 110 mg/dL High 65-[address] [facility] Comment on above: Performed By: #### 4 6932 ####[facility] [address] [place] [address] [id number] [facility] Glucose [Mass/Vol] 94 mg/dL Normal 65-[address] [facility] Comment on above: Performed By: #### 4 6917 ####[facility] [address] [place] [address] [id number] [facility] Glucose [Mass/Vol] 169 mg/dL High 65-[address] [facility] Comment on above: Performed By: #### 4 6846 ####[facility] [address] [place] [address] [id number] [facility] Glucose [Mass/Vol] 64 mg/dL Low 65-[address] [facility] Comment on above: Performed By: #### 4 4995 ####[facility] [address] [place] [address] [id number] [facility] Glucose [Mass/Vol] 56 mg/dL Low 65-[address] [facility] Comment on above: Performed By: #### 4 6932 ####[facility] [address] [place] [address] [id number] [facility] Glucose [Mass/Vol] 60 mg/dL Low 65- [facility] Comment on above: Performed By: #### 4 6932 ####[facility] [address] [place] [address] [id number] [facility] Glucose [Mass/Vol] 72 mg/dL Normal 65- [facility] Comment on above: Performed By: #### 4 6932 ####[facility] [address] [place] [address] [id number] [facility] Glucose [Mass/Vol] 125 mg/dL High - [facility] Comment on above: Performed By: #### 4 6932 ####[facility] [address] [place] [address] [id number] [facility] Glucose [Mass/Vol] 127 mg/dL High [facility] Comment on above: Performed By: #### 4 6932 ####[facility] [address] [place] [address] [id number] [facility] Glucose [Mass/Vol] 113 mg/dL High [facility] Comment on above: Performed By: #### 4 6932 ####[facility] [address] [place] [address] [id number] [facility] RENAL FUNCTION PANELon 02-15 Albumin [Mass/Vol] 2.3 g/dL Low 3.2-5.[address] [facility] Comment on above: Order Comment: [facility] has implemented the eGFR calculation approach that does not have a coefficient for race that conforms to the NKF-ASN Task Force Recommendations. Performed By: #### 4 6449 ####[facility] [address] [place] [address] Glenn Gudino M.D. [id number] Anion gap [Moles/Vol] 12 mmol/L Normal 10-20 [facility] Comment on above: Order Comment: [facility] has implemented the eGFR calculation approach that does not have a coefficient for race that conforms to the NKF-ASN Task Force Recommendations. Performed By: #### 4 6449 ####[facility] [address] [place] [address] 11095 Glenn Gudino M.D. [id number] Calcium [Mass/Vol] 8.2 mg/dL Low 8.4-10.[address] [facility] Comment on above: Order Comment: [facility] has implemented the eGFR calculation approach that does not have a coefficient for race that conforms to the NKF-ASN Task Force Recommendations. Performed By: #### 4 6449 ####[facility] [address] [place] [address] 81177 Glenn Gudino M.D. [id number] Chloride [Moles/Vol] 98 mmol/L Normal 98-108 [facility] Comment on above: Order Comment: [facility] has implemented the eGFR calculation approach that does not have a coefficient for race that conforms to the NKF-ASN Task Force Recommendations. Performed By: #### 4 6449 ####[facility] [address] [place], [place] [id number] Glenn Gudino M.D. [id number] Creatinine [Mass/Vol] 1.00 mg/dL Normal 0.60-1.10 [facility] Comment on above: Order Comment: [facility] has implemented the eGFR calculation approach that does not have a coefficient for race that conforms to the NKF-ASN Task Force Recommendations. Performed By: #### 4 6449 ####[facility] [address] [place] [address] 400[address] Glenn Gudino M.D. [id number] EGFR 64 mL/min/1.73 m2 Normal >=60 [facility] Comment on above: Order Comment: [facility] has implemented the eGFR calculation approach that does not have a coefficient for race that conforms to the NKF-ASN Task Force Recommendations. Result Comment: Joi mated GFR was calculated using the 2020 CKD-EPI creatinine equation. Performed By: #### 4 6449 ####[facility] [address] [place], [place] [id number] Glenn Gudino M.D. [id number] Glucose [Mass/Vol] 110 mg/dL High 65-[address] [facility] Comment on above: Order Comment: [facility] has implemented the eGFR calculation approach that does not have a coefficient for race that conforms to the NKF-ASN Task Force Recommendations. Performed By: #### 4 6449 ####[facility] [address] [place] [address] 67878 Glenn Gudino M.D. [id number] HCO3 (Bld) [Moles/Vol] 29 mmol/L Normal 21-32 [facility] Comment on above: Order Comment: [facility] has implemented the eGFR calculation approach that does not have a coefficient for race that conforms to the NKF-ASN Task Force Recommendations. Performed By: #### 4 6449 ####[facility] [address] [place] [address] 387[address] Glenn Gudino M.D. [id number] Phosphate [Mass/Vol] 1.0 mg/dL Low 2.8-4.1 [facility] Comment on above: Order Comment: [facility] has implemented the eGFR calculation approach that does not have a coefficient for race that conforms to the NKF-ASN Task Force Recommendations. Performed By: #### 4 6449 ####[facility] [address] [place] [address] 11746 Glenn Gudino M.D. [id number] Potassium [Moles/Vol] 3.6 mmol/L Normal 3.5-5.1 [facility] Comment on above: Order Comment: [facility] has implemented the eGFR calculation approach that does not have a coefficient for race that conforms to the NKF-ASN Task Force Recommendations. Performed By: #### 4 6449 ####[facility] [address] [place] [address] 43495 Glenn Gudino M.D. [id number] Sodium [Moles/Vol] 135 mmol/L Normal 135-[address] [facility] Comment on above: Order Comment: [facility] has implemented the eGFR calculation approach that does not have a coefficient for race that conforms to the NKF-ASN Task Force Recommendations. Performed By: #### 4 6449 ####[facility] [address] [place] [address] 97081 Glenn Gudino M.D. [id number] Urea nitrogen [Mass/Vol] 27 mg/dL High 8-25 [facility] Comment on above: Order Comment: [facility] has implemented the eGFR calculation approach that does not have a coefficient for race that conforms to the NKF-ASN Task Force Recommendations. Performed By: #### 4 6449 ####[facility] [address] [place] [address] 64561 Glenn Gudino M.D. [id number] Urea nitrogen/Creatinine [Mass ratio] 27.0 mg/mg High 10.0-20.0 [facility] Comment on above: Order Comment: [facility] has implemented the eGFR calculation approach that does not have a coefficient for race that conforms to the NKF-ASN Task Force Recommendations. Performed By: #### 4 6449 ####[facility] [address] [place] [address] 48147 Glenn Gudino M.D. [id number] XR CHEST PA/APon 02-16-2024 XR CHEST PA/AP Normal [facility] Comment on above: Order Comment: Injur y/Trauma or Illness?:Illness/OtherHow long have you had these symptoms (acute/chronic)?:AcuteReason for exam?:pneumothoraxHistory of cancer?:uSurgeries, chemotherapy, or radiation?:uType of Exam?:InitialAdditional signs and symptoms?:. ANTIBODY IDENTIFICATION-FYAo n 02-15-2024 ANTIBODY IDENTIFICATION-FYA Normal [facility] Comment on above: Performed By: #### 4 6427_Anti-Fya ####[facility] [address] [place], [place] [id number] Nurys Oneill MD [id number] [facility] BASIC METABOLIC PANELon 01-27 Anion gap [Moles/Vol] 13 mmol/L Normal 10-20 [facility] Comment on above: Order Comment: [facility] has implemented the eGFR calculation approach that does not have a coefficient for race that conforms to the NKF-ASN Task Force Recommendations. Performed By: #### 4 6124 ####[facility] [address] [place] [address] 09334 Glenn Gudino M.D. [id number] Calcium [Mass/Vol] 7.8 mg/dL Low 8.4-10.[address] [facility] Comment on above: Order Comment: [facility] has implemented the eGFR calculation approach that does not have a coefficient for race that conforms to the NKF-ASN Task Force Recommendations. Performed By: #### 4 6124 ####[facility] [address] [place] [address] 31719 Glenn Gudino M.D. [id number] Chloride [Moles/Vol] 99 mmol/L Normal 98-108 [facility] Comment on above: Order Comment: [facility] has implemented the eGFR calculation approach that does not have a coefficient for race that conforms to the NKF-ASN Task Force Recommendations. Performed By: #### 4 6124 ####[facility] [address] [place] [address] 78693 Glenn Gudino M.D. [id number] Creatinine [Mass/Vol] 1.73 mg/dL High 0.60-1.10 [facility] Comment on above: Order Comment: [facility] has implemented the eGFR calculation approach that does not have a coefficient for race that conforms to the NKF-ASN Task Force Recommendations. Performed By: #### 4 6124 ####[facility] [address] [place] [address] 56204 Glenn Gudino M.D. [id number] EGFR 33 mL/min/1.73 m2 Low >=60 [facility] Comment on above: Order Comment: [facility] has implemented the eGFR calculation approach that does not have a coefficient for race that conforms to the NKF-ASN Task Force Recommendations. Result Comment: Joi mated GFR was calculated using the 2020 CKD-EPI creatinine equation. Performed By: #### 4 6124 ####[facility] [address] [place] [address] 50524 Glenn Gudino M.D. [id number] Glucose [Mass/Vol] 97 mg/dL Normal 65-[address] [facility] Comment on above: Order Comment: [facility] has implemented the eGFR calculation approach that does not have a coefficient for race that conforms to the NKF-ASN Task Force Recommendations. Performed By: #### 4 6124 ####[facility] [address] [place] [address] 32972 Glenn Gudino M.D. [id number] HCO3 (Bld) [Moles/Vol] 28 mmol/L Normal 21-32 [facility] Comment on above: Order Comment: [facility] has implemented the eGFR calculation approach that does not have a coefficient for race that conforms to the NKF-ASN Task Force Recommendations. Performed By: #### 4 6124 ####[facility] [address] [place] [address] 64249 Glenn Gudino M.D. [id number] Potassium [Moles/Vol] 3.1 mmol/L Low 3.5-5.1 [facility] Comment on above: Order Comment: [facility] has implemented the eGFR calculation approach that does not have a coefficient for race that conforms to the NKF-ASN Task Force Recommendations. Result Comment: Slig htly Hemolyzed Performed By: #### 4 6111 ####[facility] [address] [place] [address] 47149 Glenn Gudino M.D. [id number] Sodium [Moles/Vol] 137 mmol/L Normal 135-[address] [facility] Comment on above: Order Comment: [facility] has implemented the eGFR calculation approach that does not have a coefficient for race that conforms to the NKF-ASN Task Force Recommendations. Performed By: #### 4 6124 ####[facility] [address] [place] [address] 64750 Glenn Gudino M.D. [id number] Urea nitrogen [Mass/Vol] 46 mg/dL High 8-25 [facility] Comment on above: Order Comment: [facility] has implemented the eGFR calculation approach that does not have a coefficient for race that conforms to the NKF-ASN Task Force Recommendations. Performed By: #### 4 6124 ####[facility] [address] [place], [place] [id number] Glenn Gudino M.D. [id number] Urea nitrogen/Creatinine [Mass ratio] 26.6 mg/mg High 10.0-20.0 [facility] Comment on above: Order Comment: [facility] has implemented the eGFR calculation approach that does not have a coefficient for race that conforms to the NKF-ASN Task Force Recommendations. Performed By: #### 4 6124 ####[facility] [address] [place] [address] 29638 Glenn Gudino M.D. [id number] CALCIUM, IONIZEDon CALCIUM IONIZED 4.7 mg/dL Normal 4.5-5.3 [facility] Comment on above: Order Comment: Serum , non-CRRT source. Performed By: #### 4 5190 ####[facility] [address] [place] [address] 64128 Glenn Gudino M.D. [id number] CBCon 02-15-2024 AUTO NRBC 0.0 % Normal [facility] Comment on above: Performed By: #### 4 5218 ####[facility] [address] [place], [place] [id number] Glenn Gudino M.D. [id number] AUTO NRBC ABS COUNT 0.00 K/mcL Normal 0.00-0.00 [facility] Comment on above: Performed By: #### 4 5218 ####[facility] [address] [place] [address] Glenn Gudino M.D. [id number] Erythrocyte distribution width (RBC) [Ratio] 19.5 % High 11.6-14.8 [facility] Comment on above: Performed By: #### 4 5218 ####[facility] [address] [place] [address] Glenn Gudino M.D. [id number] Hematocrit (Bld) [Volume fraction] 27.0 % Low 36.0-46.0 [facility] Comment on above: Performed By: #### 4 5218 ####[facility] [address] [place], [place] [id number] Glenn Gudino M.D. [id number] Hemoglobin (Bld) [Mass/Vol] 8.4 g/dL Low 12.0-16.0 [facility] Comment on above: Performed By: #### 4 5218 ####[facility] [address] [place], [place] [id number] Glenn Gudion M.D. [id number] MCH (RBC) [Entitic mass] 29.1 pg Normal 26.0-34.0 [facility] Comment on above: Performed By: #### 4 5218 ####[facility] [address] [place], [place] [id number] Glenn Gudino M.D. [id number] MCV (RBC) [Entitic vol] 93.4 fL Normal 80.0-100.0 [facility] Comment on above: Performed By: #### 4 5218 ####[facility] [address] [place] [address] 66990 Glenn Gudino M.D. [id number] MEAN CORPUSCULAR HEMOGLOBIN CONC 31.1 g/dL Normal 31.0-37.0 [facility] Comment on above: Performed By: #### 4 5218 ####[facility] [address] [place], [place] [id number] Glenn Gudino M.D. [id number] Platelet mean volume (Bld) [Entitic vol] 9.5 fL Normal 9.4-12.4 [facility] Comment on above: Performed By: #### 4 5218 ####[facility] [address] [place], [place] [id number] Glenn Gudino M.D. [id number] Platelets (Bld) [#/Vol] 288 10*3/uL Normal 150-400 [facility] Comment on above: Performed By: #### 4 5218 ####[facility] [address] [place] [address] 35140 Glenn Gudino M.D. [id number] RBC (Bld) [#/Vol] 2.89 10*6/uL Low 4.00-5.20 [facility] Comment on above: Performed By: #### 4 5218 ####[facility] [address] [place] [address] 54983 Glenn Gudino M.D. [id number] WBC (Bld) [#/Vol] 16.69 10*3/uL High 4.50-11.00 [facility] Comment on above: Performed By: #### 4 5218 ####[facility] [address] [place] [address] 33654 Glenn Gudino M.D. [id number] MAGNESIUM LEVELon 02-15-2024 Magnesium [Mass/Vol] 2.0 mg/dL Normal 1.6-2.4 [facility] Comment on above: Performed By: #### 4 6109 ####[facility] [address] [place] [address] Glenn Gudino M.D. [id number] POC GLUCOSE - [facility] 024 Glucose [Mass/Vol] 113 mg/dL High -[address] [place] [address] Comment on above: Performed By: #### 4 1484 ####[facility] [address] [place] [address] [id number] [facility] Glucose [Mass/Vol] 173 mg/dL High [address] [place] [address] Comment on above: Performed By: #### 4 0548 ####[facility] [address] [place] [address] [id number] [facility] Glucose [Mass/Vol] 82 mg/dL Normal [address] Comment on above: Performed By: #### 4 8431 ####[facility] [address] [place] [address] [id number] [facility] Glucose [Mass/Vol] 50 mg/dL Low [address] [place] [address] Comment on above: Performed By: #### 4 5388 ####[facility] [address] [place] [address] [id number] [facility] Glucose [Mass/Vol] 99 mg/dL Normal [address] [place] [address] Comment on above: Performed By: #### 4 5144 ####[facility] [address] [place] [address] [id number] [facility] Glucose [Mass/Vol] 179 mg/dL High [address] [place] [address] Comment on above: Performed By: #### 4 0363 ####[facility] [address] [place] [address] [id number] [facility] Glucose [Mass/Vol] 145 mg/dL High [address] [place] [address] Comment on above: Performed By: #### 4 3647 ####[facility] [address] [place] [address] [id number] [facility] RENAL FUNCTION PANELon 02-14 Albumin [Mass/Vol] 2.2 g/dL Low 3.2-5.[address] [facility] Comment on above: Order Comment: [facility] has implemented the eGFR calculation approach that does not have a coefficient for race that conforms to the NKF-ASN Task Force Recommendations. Performed By: #### 4 6449 ####[facility] [address] [place] [address] Glenn Gudino M.D. [id number] Anion gap [Moles/Vol] 13 mmol/L Normal 10-20 [facility] Comment on above: Order Comment: [facility] has implemented the eGFR calculation approach that does not have a coefficient for race that conforms to the NKF-ASN Task Force Recommendations. Performed By: #### 4 6449 ####[facility] [address] [place] [address] Glenn Gudino M.D. [id number] Calcium [Mass/Vol] 7.9 mg/dL Low 8.4-10.[address] [facility] Comment on above: Order Comment: [facility] has implemented the eGFR calculation approach that does not have a coefficient for race that conforms to the NKF-ASN Task Force Recommendations. Performed By: #### 4 6449 ####[facility] [address] [place] [address] Glenn Gudino M.D. [id number] Chloride [Moles/Vol] 101 mmol/L Normal 98-108 [facility] Comment on above: Order Comment: [facility] has implemented the eGFR calculation approach that does not have a coefficient for race that conforms to the NKF-ASN Task Force Recommendations. Performed By: #### 4 6449 ####[facility] [address] [place] [address] Glenn Gudino M.D. [id number] Creatinine [Mass/Vol] 1.60 mg/dL High 0.60-1.10 [facility] Comment on above: Order Comment: [facility] has implemented the eGFR calculation approach that does not have a coefficient for race that conforms to the NKF-ASN Task Force Recommendations. Performed By: #### 4 6449 ####[facility] [address] [place] [address] 81934 Glenn Gudino M.D. [id number] EGFR 37 mL/min/1.73 m2 Low >=60 [facility] Comment on above: Order Comment: [facility] has implemented the eGFR calculation approach that does not have a coefficient for race that conforms to the NKF-ASN Task Force Recommendations. Result Comment: Joi mated GFR was calculated using the 2020 CKD-EPI creatinine equation. Performed By: #### 4 6449 ####[facility] [address] [place], [place] [id number] Glenn Gudino M.D. [id number] Glucose [Mass/Vol] 95 mg/dL Normal 65-[address] [facility] Comment on above: Order Comment: [facility] has implemented the eGFR calculation approach that does not have a coefficient for race that conforms to the NKF-ASN Task Force Recommendations. Performed By: #### 4 6449 ####[facility] [address] [place] [address] 35600 Glenn Gudino M.D. [id number] HCO3 (Bld) [Moles/Vol] 27 mmol/L Normal 21-32 [facility] Comment on above: Order Comment: [facility] has implemented the eGFR calculation approach that does not have a coefficient for race that conforms to the NKF-ASN Task Force Recommendations. Performed By: #### 4 6449 ####[facility] [address] [place] [address] 91906 Glenn Gudino M.D. [id number] Phosphate [Mass/Vol] 2.1 mg/dL Low 2.8-4.1 [facility] Comment on above: Order Comment: [facility] has implemented the eGFR calculation approach that does not have a coefficient for race that conforms to the NKF-ASN Task Force Recommendations. Performed By: #### 4 6449 ####[facility] [address] [place] [address] 81298 Glenn Gudino M.D. [id number] Potassium [Moles/Vol] 2.8 mmol/L Low 3.5-5.1 [facility] Comment on above: Order Comment: [facility] has implemented the eGFR calculation approach that does not have a coefficient for race that conforms to the NKF-ASN Task Force Recommendations. Performed By: #### 4 6449 ####[facility] [address] [place] [address] 68419 Glenn Gudino M.D. [id number] Sodium [Moles/Vol] 138 mmol/L Normal 135-[address] [facility] Comment on above: Order Comment: [facility] has implemented the eGFR calculation approach that does not have a coefficient for race that conforms to the NKF-ASN Task Force Recommendations. Performed By: #### 4 6449 ####[facility] [address] [place] [address] 37088 Glenn Gudino M.D. [id number] Urea nitrogen [Mass/Vol] 44 mg/dL High 8-25 [facility] Comment on above: Order Comment: [facility] has implemented the eGFR calculation approach that does not have a coefficient for race that conforms to the NKF-ASN Task Force Recommendations. Performed By: #### 4 6449 ####[facility] [address] [place] [address] 04424 Glenn Gudino M.D. [id number] Urea nitrogen/Creatinine [Mass ratio] 27.5 mg/mg High 10.0-20.0 [facility] Comment on above: Order Comment: [facility] has implemented the eGFR calculation approach that does not have a coefficient for race that conforms to the NKF-ASN Task Force Recommendations. Performed By: #### 4 6449 ####[facility] [address] [place] [address] Glenn Gudino M.D. [id number] TYPE AND SCREENon 02-15-2024 TYPE AND SCREEN ABORH: O Positive AB SCREEN: Positive EXPIRATION DATE: 02/18/2024 23:59 EST Normal [facility] Comment on above: Performed By: #### 4 6619 ####[facility] [address] [place] [address] Nurys Oneill MD [id number] [facility] XR CHEST PA/APon 02-15-2024 XR CHEST PA/AP [facility] Comment on above: Order Comment: Injur [...] IONIZEDon CALCIUM IONIZED 4.9 mg/dL Normal 4.5-5.3 [facility] Comment on above: Order Comment: Serum , non-CRRT source. Performed By: #### 4 5190 ####[facility] [address] [place] [address] Glenn Gudino M.D. [id number] CBCon 02-14-2024 AUTO NRBC 0.0 % [facility] Comment on above: Performed By: #### 4 5218 ####[facility] [facility] [address] [place] [address] Glenn Gudino M.D. [id number] AUTO NRBC ABS COUNT 0.00 K/mcL Normal 0.00-0.00 [facility] Comment on above: Performed By: #### 4 [id number] ####[facility] [address] [place] [address] Glenn Gudino M.D. [id number] Erythrocyte distribution width (RBC) [Ratio] 20.9 % High 11.6-14.8 [facility] Comment on above: Performed By: #### 4 [id number] ####[facility] [address] [place] [address] Glenn Gudino M.D. [id number] Hematocrit (Bld) [Volume fraction] 23.1 % Low 36.0-46.0 [facility] Comment on above: Performed By: #### 4 [id number] ####[facility] [address] [place] [address] Glenn Gudino M.D. [id number] Hemoglobin (Bld) [Mass/Vol] 6.9 g/dL Off scale low 12.0-16.0 [facility] Comment on above: Result Comment: Resu lts called and read back verified by:.[id number] @ 0621 Performed By: #### 4 5218 ####[facility] [address] [place], [place] [id number] Glenn Gudino M.D. [id number] MCH (RBC) [Entitic mass] 28.4 pg Normal 26.0-34.0 [facility] Comment on above: Performed By: #### 4 5218 ####[facility] [address] [place], [place] [id number] Glenn Gudino M.D. [id number] MCV (RBC) [Entitic vol] 95.1 fL Normal 80.0-100.0 [facility] Comment on above: Performed By: #### 4 1118 ####[facility] [address] [place] [address] Glenn Gudino M.D. [id number] MEAN CORPUSCULAR HEMOGLOBIN CONC 29.9 g/dL Low 31.0-37.0 [facility] Comment on above: Performed By: #### 4 5218 ####[facility] [address] [place], [place] [id number] Glenn Gudino M.D. [id number] Platelet mean volume (Bld) [Entitic vol] 9.8 fL Normal 9.4-12.4 [facility] Comment on above: Performed By: #### 4 [id number] ####[facility] [address] [place], [place] [id number] Glenn Gudino M.D. [id number] Platelets (Bld) [#/Vol] 346 10*3/uL Normal 150-400 [facility] Comment on above: Performed By: #### 4 5218 ####[facility] [address] [place] [address] Glenn Gudino M.D. [id number] RBC (Bld) [#/Vol] 2.43 10*6/uL Low 4.00-5.20 [facility] Comment on above: Performed By: #### 4 [id number] ####[facility] [address] [place] [address] Glenn Gudino M.D. [id number] WBC (Bld) [#/Vol] 21.68 10*3/uL High 4.50-11.00 [facility] Comment on above: Performed By: #### 4 [id number] ####[facility] [address] [place] [address] Glenn Gudino M.D. [id number] MAGNESIUM LEVELon 02-14-2024 Magnesium [Mass/Vol] 2.3 mg/dL Normal 1.6-2.4 [facility] Comment on above: Performed By: #### 4 6109 ####[facility] [address] [place] [address] Glenn Gudino M.D. [id number] POC GLUCOSE [facility] 024 Glucose [Mass/Vol] 245 mg/dL [address] Comment on above: Performed By: #### 4 6969 ####[facility] [address] [place] [address] [id number] [facility] Glucose [Mass/Vol] 128 mg/dL [address] Comment on above: Performed By: #### 4 9373 ####[facility] [address] [place] [address] [id number] [facility] Glucose [Mass/Vol] 156 mg/dL [address] Comment on above: Performed By: #### 4 4954 ####[facility] [address] [place] [address] [id number] [facility] Glucose [Mass/Vol] 207 mg/dL [address] Comment on above: Performed By: #### 4 0774 ####[facility] [address] [place] [address] [id number] [facility] Glucose [Mass/Vol] 233 mg/dL [address] Comment on above: Performed By: #### 4 5242 ####[facility] [address] [place] [address] [id number] [facility] Glucose [Mass/Vol] 179 mg/dL [address] Comment on above: Performed By: #### 4 7194 ####[facility] [address] [place] [address] [id number] [facility] Glucose [Mass/Vol] 187 mg/dL [address] Comment on above: Performed By: #### 4 3934 ####[facility] [address] [place] [address] [id number] [facility] RENAL FUNCTION PANELon 02-13 Albumin [Mass/Vol] 2.2 g/dL Low 3.2-5.[address] [facility] Comment on above: Order Comment: [facility] has implemented the eGFR calculation approach that does not have a coefficient for race that conforms to the NKF-ASN Task Force Recommendations. Performed By: #### 4 6449 ####[facility] [address] [place] [address] Glenn Gudino M.D. [id number] Anion gap [Moles/Vol] 18 mmol/L Normal 10-20 [facility] Comment on above: Order Comment: [facility] has implemented the eGFR calculation approach that does not have a coefficient for race that conforms to the NKF-ASN Task Force Recommendations. Performed By: #### 4 6449 ####[facility] [address] [place], [place] [id number] Glenn Gudino M.D. [id number] Calcium [Mass/Vol] 8.4 mg/dL Normal 8.4-10.[address] [facility] Comment on above: Order Comment: [facility] has implemented the eGFR calculation approach that does not have a coefficient for race that conforms to the NKF-ASN Task Force Recommendations. Performed By: #### 4 6449 ####[facility] [address] [place], [place] [address] Glenn Gudino M.D. [id number] Chloride [Moles/Vol] 102 mmol/L Normal 98-108 [facility] Comment on above: Order Comment: [facility] has implemented the eGFR calculation approach that does not have a coefficient for race that conforms to the NKF-ASN Task Force Recommendations. Performed By: #### 4 6449 ####[facility] [address] [place], [place] [address] Glenn Gudino M.D. [id number] Creatinine [Mass/Vol] 2.41 mg/dL High 0.60-1.10 [facility] Comment on above: Order Comment: [facility] has implemented the eGFR calculation approach that does not have a coefficient for race that conforms to the NKF-ASN Task Force Recommendations. Performed By: #### 4 6449 ####[facility] [address] [place], [place] [address] Glenn Gudino M.D. [id number] EGFR 22 mL/min/1.73 m2 Low >=60 [facility] Comment on above: Order Comment: [facility] has implemented the eGFR calculation approach that does not have a coefficient for race that conforms to the NKF-ASN Task Force Recommendations. Result Comment: Joi mated GFR was calculated using the 2020 CKD-EPI creatinine equation. Performed By: #### 4 6449 ####[facility] [address] [place], [place] [address] Glenn Gudino M.D. [id number] Glucose [Mass/Vol] 202 mg/dL High 65-[address] [facility] Comment on above: Order Comment: [facility] has implemented the eGFR calculation approach that does not have a coefficient for race that conforms to the NKF-ASN Task Force Recommendations. Performed By: #### 4 6449 ####[facility] [address] [place], [place] [address] Glenn Gudino M.D. [id number] HCO3 (Bld) [Moles/Vol] 22 mmol/L Normal 21-32 [facility] Comment on above: Order Comment: [facility] has implemented the eGFR calculation approach that does not have a coefficient for race that conforms to the NKF-ASN Task Force Recommendations. Performed By: #### 4 6449 ####[facility] [address] [place], [place] [address] Glenn Gudino M.D. [id number] Phosphate [Mass/Vol] 4.7 mg/dL High 2.8-4.1 [facility] Comment on above: Order Comment: [facility] has implemented the eGFR calculation approach that does not have a coefficient for race that conforms to the NKF-ASN Task Force Recommendations. Performed By: #### 4 6449 ####[facility] [address] [place] [address] Glenn Gudino M.D. [id number] Potassium [Moles/Vol] 4.0 mmol/L Normal 3.5-5.1 [facility] Comment on above: Order Comment: [facility] has implemented the eGFR calculation approach that does not have a coefficient for race that conforms to the NKF-ASN Task Force Recommendations. Performed By: #### 4 6449 ####[facility] [address] [place] [address] Glenn Gudino M.D. [id number] Sodium [Moles/Vol] 138 mmol/L Normal 135-[address] [facility] Comment on above: Order Comment: [facility] has implemented the eGFR calculation approach that does not have a coefficient for race that conforms to the NKF-ASN Task Force Recommendations. Performed By: #### 4 6449 ####[facility] [address] [place] [address] Glenn Gudino M.D. [id number] Urea nitrogen [Mass/Vol] 64 mg/dL High 8-25 [facility] Comment on above: Order Comment: [facility] has implemented the eGFR calculation approach that does not have a coefficient for race that conforms to the NKF-ASN Task Force Recommendations. Performed By: #### 4 6449 ####[facility] [address] [place] [address] Glenn Gudino M.D. [id number] Urea nitrogen/Creatinine [Mass ratio] 26.6 mg/mg High 10.0-20.0 [facility] Comment on above: Order Comment: [facility] has implemented the eGFR calculation approach that does not have a coefficient for race that conforms to the NKF-ASN Task Force Recommendations. Performed By: #### 4 6449 ####[facility] [address] [place], [place] [address] Glenn Gudino M.D. [id number] XR CHEST PA/APon 02-14-2024 XR CHEST PA/AP Normal [facility] Comment on above: Order Comment: Injur y/Trauma or Illness?:Illness/OtherHow long have you had these symptoms (acute/chronic)?:UnknownReason for exam?:chest tube palcement, pneumothoraxHistory of cancer?:uSurgeries, chemotherapy, or radiation?:uType of Exam?:InitialAdditional signs and symptoms?:. CALCIUM, IONIZEDon CALCIUM IONIZED 4.8 mg/dL Normal 4.5-5.3 [facility] Comment on above: Order Comment: Serum , non-CRRT source. Performed By: #### 4 5190 ####[facility] [address] [place], [place] [address] Glenn Gudino M.D. [id number] CBCon 02-13-2024 AUTO NRBC 0.0 % Normal [facility] Comment on above: Performed By: #### 4 5218 ####[facility] [address] [place], [place] [id number] Glenn Gudino M.D. [id number] AUTO NRBC ABS COUNT 0.00 K/mcL Normal 0.00-0.00 [facility] Comment on above: Performed By: #### 4 5218 ####[facility] [address] [place], [place] [id number] Glenn Gudino M.D. [id number] Erythrocyte distribution width (RBC) [Ratio] 19.4 % High 11.6-14.8 [facility] Comment on above: Performed By: #### 4 5218 ####[facility] [address] [place], [place] [id number] Glenn Gudino M.D. [id number] Hematocrit (Bld) [Volume fraction] 22.7 % Low 36.0-46.0 [facility] Comment on above: Performed By: #### 4 5218 ####[facility] [address] [place], [place] [address] Glenn Gudino M.D. [id number] Hemoglobin (Bld) [Mass/Vol] 7.0 g/dL Low 12.0-16.0 [facility] Comment on above: Performed By: #### 4 5218 ####[facility] [address] [place] [address] Glenn Gudino M.D. [id number] MCH (RBC) [Entitic mass] 28.6 pg Normal 26.0-34.0 [facility] Comment on above: Performed By: #### 4 5218 ####[facility] [address] [place], [place] [address] Glenn Gudino M.D. [id number] MCV (RBC) [Entitic vol] 92.7 fL Normal 80.0-100.0 [facility] Comment on above: Performed By: #### 4 5218 ####[facility] [address] [place], [place] [address] Glenn Gudino M.D. [id number] MEAN CORPUSCULAR HEMOGLOBIN CONC 30.8 g/dL Low 31.0-37.0 [facility] Comment on above: Performed By: #### 4 5218 ####[facility] [address] [place], [place] [address] Glenn Gudino M.D. [id number] Platelet mean volume (Bld) [Entitic vol] 9.7 fL Normal 9.4-12.4 [facility] Comment on above: Performed By: #### 4 5218 ####[facility] [address] [place], [place] [address] Glenn Gudino M.D. [id number] Platelets (Bld) [#/Vol] 318 10*3/uL Normal 150-400 [facility] Comment on above: Performed By: #### 4 5218 ####[facility] [address] [place] [address] Glenn Gudino M.D. [id number] RBC (Bld) [#/Vol] 2.45 10*6/uL Low 4.00-5.20 [facility] Comment on above: Performed By: #### 4 5218 ####[facility] [address] [place], [place] [id number] Glenn Gudino M.D. [id number] WBC (Bld) [#/Vol] 19.00 10*3/uL High 4.50-11.00 [facility] Comment on above: Result Comment: Left Shift.Peripheral smear reviewed manually Performed By: #### 4 5218 ####[facility] [address] [place], [place] [id number] Glenn Gudino M.D. [id number] MAGNESIUM LEVELon 02-13-2024 Magnesium [Mass/Vol] 2.3 mg/dL Normal 1.6-2.4 [facility] Comment on above: Performed By: #### 4 6109 ####[facility] [address] [place] [address] Glenn Gudino M.D. [id number] POC GLUCOSE - [facility] 024 Glucose [Mass/Vol] 202 mg/dL High [address] [place] [address] Comment on above: Performed By: #### 4 6994 ####[facility] [address] [place] [address] [id number] [facility] Glucose [Mass/Vol] 220 mg/dL [address] Comment on above: Performed By: #### 4 6925 ####[facility] [address] [place] [address] [id number] [facility] Glucose [Mass/Vol] 224 mg/dL [address] Comment on above: Performed By: #### 4 6932 ####[facility] [address] [place] [address] [id number] [facility] Glucose [Mass/Vol] 179 mg/dL High 65- [facility] Comment on above: Performed By: #### 4 6932 ####[facility] [address] [place] [address] [id number] [facility] Glucose [Mass/Vol] 169 mg/dL High - [facility] Comment on above: Performed By: #### 4 6932 ####[facility] [address] [place] [address] [id number] [facility] RENAL FUNCTION PANELon 02-12 Albumin [Mass/Vol] 2.8 g/dL Low 3.2-5.[address] [facility] Comment on above: Order Comment: [facility] has implemented the eGFR calculation approach that does not have a coefficient for race that conforms to the NKF-ASN Task Force Recommendations. Performed By: #### 4 6449 ####[facility] [address] [place] [address] Glenn Gudino M.D. [id number] Anion gap [Moles/Vol] 17 mmol/L Normal 10-20 [facility] Comment on above: Order Comment: [facility] has implemented the eGFR calculation approach that does not have a coefficient for race that conforms to the NKF-ASN Task Force Recommendations. Performed By: #### 4 6449 ####[facility] [address] [place] [address] Glenn Gudino M.D. [id number] Calcium [Mass/Vol] 8.7 mg/dL Normal 8.4-10.[address] [facility] Comment on above: Order Comment: [facility] has implemented the eGFR calculation approach that does not have a coefficient for race that conforms to the NKF-ASN Task Force Recommendations. Performed By: #### 4 6449 ####[facility] [address] [place], [place] [address] Glenn Gudino M.D. [id number] Chloride [Moles/Vol] 101 mmol/L Normal 98-108 [facility] Comment on above: Order Comment: [facility] has implemented the eGFR calculation approach that does not have a coefficient for race that conforms to the NKF-ASN Task Force Recommendations. Performed By: #### 4 6449 ####[facility] [address] [place] [address] Glenn Gudino M.D. [id number] Creatinine [Mass/Vol] 1.98 mg/dL High 0.60-1.10 [facility] Comment on above: Order Comment: [facility] has implemented the eGFR calculation approach that does not have a coefficient for race that conforms to the NKF-ASN Task Force Recommendations. Performed By: #### 4 6449 ####[facility] [address] [place], [place] [address] Glenn Gudino M.D. [id number] EGFR 28 mL/min/1.73 m2 Low >=60 [facility] Comment on above: Order Comment: [facility] has implemented the eGFR calculation approach that does not have a coefficient for race that conforms to the NKF-ASN Task Force Recommendations. Result Comment: Joi mated GFR was calculated using the 2020 CKD-EPI creatinine equation. Performed By: #### 4 6449 ####[facility] [address] [place], [place] [address] Glenn Gudino M.D. [id number] Glucose [Mass/Vol] 170 mg/dL High 65-[address] [facility] Comment on above: Order Comment: [facility] has implemented the eGFR calculation approach that does not have a coefficient for race that conforms to the NKF-ASN Task Force Recommendations. Performed By: #### 4 6449 ####[facility] [address] [place], [place] [address] Glenn Gudino M.D. [id number] HCO3 (Bld) [Moles/Vol] 25 mmol/L Normal 21-32 [facility] Comment on above: Order Comment: [facility] has implemented the eGFR calculation approach that does not have a coefficient for race that conforms to the NKF-ASN Task Force Recommendations. Performed By: #### 4 6449 ####[facility] [address] [place], [place] [address] Glenn Gudino M.D. [id number] Phosphate [Mass/Vol] 4.0 mg/dL Normal 2.8-4.1 [facility] Comment on above: Order Comment: [facility] has implemented the eGFR calculation approach that does not have a coefficient for race that conforms to the NKF-ASN Task Force Recommendations. Performed By: #### 4 6449 ####[facility] [address] [place], [place] [address] Glenn Gudino M.D. [id number] Potassium [Moles/Vol] 4.5 mmol/L Normal 3.5-5.1 [facility] Comment on above: Order Comment: [facility] has implemented the eGFR calculation approach that does not have a coefficient for race that conforms to the NKF-ASN Task Force Recommendations. Performed By: #### 4 6449 ####[facility] [address] [place], [place] [address] Glenn Gudino M.D. [id number] Sodium [Moles/Vol] 138 mmol/L Normal 135-[address] [facility] Comment on above: Order Comment: [facility] has implemented the eGFR calculation approach that does not have a coefficient for race that conforms to the NKF-ASN Task Force Recommendations. Performed By: #### 4 6449 ####[facility] [address] [place] [address] Glenn Gudino M.D. [id number] Urea nitrogen [Mass/Vol] 48 mg/dL High 8-25 [facility] Comment on above: Order Comment: [facility] has implemented the eGFR calculation approach that does not have a coefficient for race that conforms to the NKF-ASN Task Force Recommendations. Performed By: #### 4 6449 ####[facility] [address] [place] [address] Glenn Gudino M.D. [id number] Urea nitrogen/Creatinine [Mass ratio] 24.2 mg/mg High 10.0-20.0 [facility] Comment on above: Order Comment: [facility] has implemented the eGFR calculation approach that does not have a coefficient for race that conforms to the NKF-ASN Task Force Recommendations. Performed By: #### 4 6449 ####[facility] [address] [place] [address] Glenn Gudino M.D. [id number] XR CHEST PA/APon 02-13-2024 XR CHEST PA/AP Normal [facility] Comment on above: Order Comment: Injur y/Trauma or Illness?:Illness/OtherHow long have you had these symptoms (acute/chronic)?:UnknownReason for exam?:chest tube palcement, pneumothoraxHistory of cancer?:uSurgeries, chemotherapy, or radiation?:uType of Exam?:OngoingAdditional signs and symptoms?:chest tube palcement, pneumothorax ANTIBODY IDENTIFICATION-Con 02-12-2024 ANTIBODY IDENTIFICATION-C Normal [facility] Comment on above: Performed By: #### 4 6427_Anti-C ####[facility] [address] [place] [address] Nurys Oneill MD [id number] [facility] CALCIUM, IONIZEDon CALCIUM IONIZED 4.7 mg/dL Normal 4.5-5.3 [facility] Comment on above: Order Comment: Serum , non-CRRT source. Performed By: #### 4 5190 ####[facility] [address] [place] [address] Glenn Gudino M.D. [id number] CBCon 02-12-2024 AUTO NRBC 0.1 % Normal [facility] Comment on above: Performed By: #### 4 5218 ####[facility] [address] [place], [place] [id number] Glenn Gudino M.D. [id number] AUTO NRBC ABS COUNT 0.02 K/mcL High 0.00-0.00 [facility] Comment on above: Performed By: #### 4 5218 ####[facility] [address] [place], [place] [id number] Glenn Gudino M.D. [id number] Erythrocyte distribution width (RBC) [Ratio] 19.2 % High 11.6-14.8 [facility] Comment on above: Performed By: #### 4 5218 ####[facility] [address] [place] [address] Glenn Gudino M.D. [id number] Hematocrit (Bld) [Volume fraction] 23.6 % Low 36.0-46.0 [facility] Comment on above: Performed By: #### 4 5218 ####[facility] [address] [place], [place] [address] Glenn Gudino M.D. [id number] Hemoglobin (Bld) [Mass/Vol] 7.3 g/dL Low 12.0-16.0 [facility] Comment on above: Performed By: #### 4 5218 ####[facility] [address] [place], [place] [id number] Glenn Gudino M.D. [id number] MCH (RBC) [Entitic mass] 28.6 pg Normal 26.0-34.0 [facility] Comment on above: Performed By: #### 4 5218 ####[facility] [address] [place], [place] [address] Glenn Gudino M.D. [id number] MCV (RBC) [Entitic vol] 92.5 fL Normal 80.0-100.0 [facility] Comment on above: Performed By: #### 4 5218 ####[facility] [address] [place], [place] [address] Glenn Gudino M.D. [id number] MEAN CORPUSCULAR HEMOGLOBIN CONC 30.9 g/dL Low 31.0-37.0 [facility] Comment on above: Performed By: #### 4 5218 ####[facility] [address] [place] [address] Glenn Gudino M.D. [id number] Platelet mean volume (Bld) [Entitic vol] 9.7 fL Normal 9.4-12.4 [facility] Comment on above: Performed By: #### 4 5218 ####[facility] [address] [place], [place] [address] Glenn Gudino M.D. [id number] Platelets (Bld) [#/Vol] 317 10*3/uL Normal 150-400 [facility] Comment on above: Performed By: #### 4 5218 ####[facility] [address] [place], [place] [address] Glenn Gudino M.D. [id number] RBC (Bld) [#/Vol] 2.55 10*6/uL Low 4.00-5.20 [facility] Comment on above: Performed By: #### 4 5218 ####[facility] [address] [place], [place] [address] Glenn Gudino M.D. [id number] WBC (Bld) [#/Vol] 17.16 10*3/uL High 4.50-11.00 [facility] Comment on above: Performed By: #### 4 5218 ####[facility] [address] [place], [place] [address] Glenn Gudino M.D. [id number] COMPREHENSIVE METABOLIC PANE Magdaleno 02-12-2024 Albumin [Mass/Vol] 2.6 g/dL Low 3.2-5.[address] [facility] Comment on above: Order Comment: [facility] has implemented the eGFR calculation approach that does not have a coefficient for race that conforms to the NKF-ASN Task Force Recommendations. Performed By: #### 4 6126 ####[facility] [address] [place], [place] [id number] Glenn Gudino M.D. [id number] Performed By: #### 4 6449 ####[facility] [address] [place] [address] Glenn Gudino M.D. [id number] ALP [Catalytic activity/Vol] 76 U/L Normal 40-150 [facility] Comment on above: Order Comment: [facility] has implemented the eGFR calculation approach that does not have a coefficient for race that conforms to the NKF-ASN Task Force Recommendations. Performed By: #### 4 6126 ####[facility] [address] [place] [address] Glenn Gudino M.D. [id number] ALT [Catalytic activity/Vol] 15 U/L Normal 0-35 U/L [facility] Comment on above: Order Comment: [facility] has implemented the eGFR calculation approach that does not have a coefficient for race that conforms to the NKF-ASN Task Force Recommendations. Performed By: #### 4 6126 ####[facility] [address] [place], [place] [id number] Glenn Gudino M.D. [id number] Anion gap [Moles/Vol] 20 mmol/L Normal 10-20 [facility] Comment on above: Order Comment: [facility] has implemented the eGFR calculation approach that does not have a coefficient for race that conforms to the NKF-ASN Task Force Recommendations. Performed By: #### 4 6126 ####[facility] [address] [place], [place] [id number] Glenn Gudino M.D. [id number] Performed By: #### 4 6449 ####[facility] [address] [place] [address] Glenn Gudino M.D. [id number] AST [Catalytic activity/Vol] 32 U/L Normal 0-35 U/L [facility] Comment on above: Order Comment: [facility] has implemented the eGFR calculation approach that does not have a coefficient for race that conforms to the NKF-ASN Task Force Recommendations. Performed By: #### 4 6126 ####[facility] [address] [place], [place] [id number] Glenn Gudino M.D. [id number] Bilirubin [Mass/Vol] 0.4 mg/dL Normal 0.0-1.3 [facility] Comment on above: Order Comment: [facility] has implemented the eGFR calculation approach that does not have a coefficient for race that conforms to the NKF-ASN Task Force Recommendations. Performed By: #### 4 6126 ####[facility] [address] [place] [address] Glenn Gudino M.D. [id number] Calcium [Mass/Vol] 8.3 mg/dL Low 8.4-10.[address] [facility] Comment on above: Order Comment: [facility] has implemented the eGFR calculation approach that does not have a coefficient for race that conforms to the NKF-ASN Task Force Recommendations. Performed By: #### 4 6126 ####[facility] [address] [place] [address] Glenn Gudino M.D. [id number] Performed By: #### 4 6449 ####[facility] [address] [place] [address] Glenn Gudino M.D. [id number] Chloride [Moles/Vol] 106 mmol/L Normal 98-108 [facility] Comment on above: Order Comment: [facility] has implemented the eGFR calculation approach that does not have a coefficient for race that conforms to the NKF-ASN Task Force Recommendations. Performed By: #### 4 6126 ####[facility] [address] [place] [address] Glenn Gudino M.D. [id number] Performed By: #### 4 6449 ####[facility] [address] [place] [address] Glenn Gudino M.D. [id number] Creatinine [Mass/Vol] 2.81 mg/dL High 0.60-1.10 [facility] Comment on above: Order Comment: [facility] has implemented the eGFR calculation approach that does not have a coefficient for race that conforms to the NKF-ASN Task Force Recommendations. Performed By: #### 4 6126 ####[facility] [address] [place] [address] Glenn Gudino M.D. [id number] Performed By: #### 4 6449 ####[facility] [address] [place], [place] [id number] Glenn Gudino M.D. [id number] EGFR 19 mL/min/1.73 m2 Low >=60 [facility] Comment on above: Order Comment: [facility] has implemented the eGFR calculation approach that does not have a coefficient for race that conforms to the NKF-ASN Task Force Recommendations. Result Comment: Joi mated GFR was calculated using the 2020 CKD-EPI creatinine equation. Performed By: #### 4 6126 ####[facility] [address] [place], [place] [id number] Glenn Gudino M.D. [id number] Result Comment: Joi mated GFR was calculated using the 2020 CKD-EPI creatinine equation.Estimated GFR was calculated using the 2020 CKD-EPI creatinine equation. Performed By: #### 4 6449 ####[facility] [address] [place] [address] Glenn Gudino M.D. [id number] Glucose [Mass/Vol] 168 mg/dL High 65-[address] [facility] Comment on above: Order Comment: [facility] has implemented the eGFR calculation approach that does not have a coefficient for race that conforms to the NKF-ASN Task Force Recommendations. Performed By: #### 4 6126 ####[facility] [address] [place] [address] Glenn Gudino M.D. [id number] Performed By: #### 4 6449 ####[facility] [address] [place], [place] [id number] Glenn Gudino M.D. [id number] HCO3 (Bld) [Moles/Vol] 19 mmol/L Low 21-32 [facility] Comment on above: Order Comment: [facility] has implemented the eGFR calculation approach that does not have a coefficient for race that conforms to the NKF-ASN Task Force Recommendations. Performed By: #### 4 6126 ####[facility] [address] [place] [address] Glenn Gudino M.D. [id number] Performed By: #### 4 6449 ####[facility] [address] [place], [place] [address] Glenn Gudino M.D. [id number] Potassium [Moles/Vol] 6.0 mmol/L High 3.5-5.1 [facility] Comment on above: Order Comment: [facility] has implemented the eGFR calculation approach that does not have a coefficient for race that conforms to the NKF-ASN Task Force Recommendations. Performed By: #### 4 6126 ####[facility] [address] [place], [place] [address] Glenn Gudino M.D. [id number] Performed By: #### 4 6449 ####[facility] [address] [place], [place] [address] Glenn Gudino M.D. [id number] Protein [Mass/Vol] 6.1 g/dL Normal 6.0-8.[address] [facility] Comment on above: Order Comment: [facility] has implemented the eGFR calculation approach that does not have a coefficient for race that conforms to the NKF-ASN Task Force Recommendations. Performed By: #### 4 6126 ####[facility] [address] [place], [place] [address] Glenn Gudino M.D. [id number] Sodium [Moles/Vol] 139 mmol/L Normal 135-[address] [facility] Comment on above: Order Comment: [facility] has implemented the eGFR calculation approach that does not have a coefficient for race that conforms to the NKF-ASN Task Force Recommendations. Performed By: #### 4 6126 ####[facility] [address] [place], [place] [address] Glenn Gudino M.D. [id number] Performed By: #### 4 6449 ####[facility] [address] [place] [address] Glenn Gudino M.D. [id number] Urea nitrogen [Mass/Vol] 74 mg/dL High 8-25 [facility] Comment on above: Order Comment: [facility] has implemented the eGFR calculation approach that does not have a coefficient for race that conforms to the NKF-ASN Task Force Recommendations. Performed By: #### 4 6126 ####[facility] [address] [place] [address] Glenn Gudino M.D. [id number] Performed By: #### 4 6449 ####[facility] [address] [place] [address] Glenn Gudino M.D. [id number] Urea nitrogen/Creatinine [Mass ratio] 26.3 mg/mg High 10.0-20.0 [facility] Comment on above: Order Comment: [facility] has implemented the eGFR calculation approach that does not have a coefficient for race that conforms to the NKF-ASN Task Force Recommendations. Performed By: #### 4 6126 ####[facility] [address] [place] [address] Glenn Gudino M.D. [id number] Performed By: #### 4 6449 ####[facility] [address] [place] [address] Glenn Gudino M.D. [id number] HEPATITIS B CORE ANTIBODY, T OTALon 02-12-2024 HEPATITIS B CORE TOTAL ANTIBODY Negative Normal Negative [facility] Comment on above: Order Comment: Test performed using Adele ANNALISE immunoassay system Performed By: #### 4 5873 ####[facility] [address] [place] [address] Glenn Gudino M.D. [id number] HEPATITIS B E ANTIGENon 01-27 HEPATITIS BE ANTIGEN Negative Normal Negative [facility] Comment on above: Performed By: #### 4 4083 ####[facility] [address] [place], [place] [id number] Glenn Gudino M.D. [id number] HEPATITIS B SURFACE ANTIBODY on 02-12-2024 HEPATITIS B SURFACE ANTIBODY Negative Normal Negative [facility] Comment on above: Order Comment: Test performed using Adele ANNALISE immunoassay system Performed By: #### 4 5876 ####[facility] [address] [place], [place] [id number] Glenn Gudino M.D. [id number] HEPATITIS B SURFACE ANTIGENo n 02-12-2024 HEPATITIS B SURFACE ANTIGEN Negative Normal Negative [facility] Comment on above: Order Comment: Test performed using Adele ANNALISE immunoassay system Performed By: #### 4 4081 ####[facility] [address] [place], [place] [address] Glenn Gudino M.D. [id number] HEPATITIS BE ANTIBODYon 01-27 HEPATITIS BE ANTIBODY INTERPRETATION Negative Normal Negative [facility] Comment on above: Order Comment: Test performed using Adele ANNALISE immunoassay system Performed By: #### L [id number] ####[facility] [address] [place] [address] Glenn Gudino M.D. [id number] MAGNESIUM LEVELon 02-12-2024 Magnesium [Mass/Vol] 2.6 mg/dL High 1.6-2.4 [facility] Comment on above: Performed By: #### 4 6109 ####[facility] [address] [place] [address] Glenn Gudino M.D. [id number] POC GLUCOSE - [facility] 024 Glucose [Mass/Vol] 127 mg/dL High 65-[address] [facility] Comment on above: Performed By: #### 4 6932 ####[facility] [address] [place] [address] [id number] [facility] Glucose [Mass/Vol] 185 mg/dL High 65-[address] [facility] Comment on above: Performed By: #### 4 6932 ####[facility] [address] [place] [address] [id number] [facility] Glucose [Mass/Vol] 257 mg/dL High 65-[address] [facility] Comment on above: Performed By: #### 4 6932 ####[facility] [address] [place] [address] [id number] [facility] Glucose [Mass/Vol] 75 mg/dL Normal 65-[address] [facility] Comment on above: Performed By: #### 4 6932 ####[facility] [address] [place] [address] [id number] [facility] PREALBUMINon 02-12-2024 Prealbumin [Mass/Vol] 18.3 mg/dL Low 20.0-40.0 [facility] Comment on above: Performed By: #### 4 6355 ####[facility] [address] [place] [address] Glenn Gudino M.D. [id number] RENAL FUNCTION PANELon 02-11 Phosphate [Mass/Vol] 5.4 mg/dL High 2.8-4.1 [facility] Comment on above: Order Comment: [facility] has implemented the eGFR calculation approach that does not have a coefficient for race that conforms to the NKF-ASN Task Force Recommendations. Performed By: #### 4 6449 ####[facility] [address] [place] [address] Glenn Gudino M.D. [id number] TRIGLYCERIDESon 02-12-2024 Triglyceride [Mass/Vol] 150 mg/dL Normal 30-150 [facility] Comment on above: Result Comment: [place] [employer] Cholesterol Education Program Guidelines: TriglycerideNormal: <150 mg/dLBorderline High: 150-199 mg/dLHigh: 200-499 mg/dLVery High: greater than or equal to 500 mg/dL Performed By: #### 4 6606 ####[facility] [address] [place] [address] Glenn Gudino M.D. [id number] TYPE AND SCREENon 02-12-2024 TYPE AND SCREEN ABORH: O Positive AB SCREEN: Positive EXPIRATION DATE: 02/15/2024 23:59 EST Normal [facility] Comment on above: Performed By: #### 4 6619 ####[facility] [address] [place] [address] Nurys Oneill MD [id number] RMHTS XR CHEST PA/APon 02-12-2024 XR CHEST PA/AP [facility] Comment on above: Order Comment: Injur y/Trauma or Illness?:Illness/OtherHow long have you had these symptoms (acute/chronic)?:AcuteReason for exam?:chest tube palcement, pneumothoraxHistory of cancer?:uSurgeries, chemotherapy, or radiation?:uType of Exam?:InitialAdditional signs and symptoms?:, CALCIUM, IONIZEDon CALCIUM IONIZED 4.7 mg/dL Normal 4.5-5.3 [facility] Comment on above: Order Comment: Serum , non-CRRT source. Performed By: #### 4 5190 ####[facility] [address] [place] [address] Glenn Gudino M.D. [id number] CBCon 02-11-2024 AUTO NRBC 0.1 % Normal [facility] Comment on above: Performed By: #### 4 5218 ####[facility] [address] [place] [address] Glenn Gudino M.D. [id number] AUTO NRBC ABS COUNT 0.02 K/mcL High 0.00-0.00 [facility] Comment on above: Performed By: #### 4 5218 ####[facility] [address] [place] [address] Glenn Gudino M.D. [id number] Erythrocyte distribution width (RBC) [Ratio] 19.1 % High 11.6-14.8 [facility] Comment on above: Performed By: #### 4 5218 ####[facility] [address] [place], [place] [address]Karma Gudino M.D. [id number] Hematocrit (Bld) [Volume fraction] 25.0 % Low 36.0-46.0 [facility] Comment on above: Performed By: #### 4 5218 ####[facility] [address] [place], [place] [id number] Glenn Gudino M.D. [id number] Hemoglobin (Bld) [Mass/Vol] 7.8 g/dL Low 12.0-16.0 [facility] Comment on above: Performed By: #### 4 5218 ####[facility] [address] [place], [place] [address]Karma Gudino M.D. [id number] MCH (RBC) [Entitic mass] 28.4 pg Normal 26.0-34.0 [facility] Comment on above: Performed By: #### 4 5218 ####[facility] [address] [place], [place] [id number] Glenn Gudino M.D. [id number] MCV (RBC) [Entitic vol] 90.9 fL Normal 80.0-100.0 [facility] Comment on above: Performed By: #### 4 5218 ####[facility] [address] [place] [address] Glenn Gudino M.D. [id number] MEAN CORPUSCULAR HEMOGLOBIN CONC 31.2 g/dL Normal 31.0-37.0 [facility] Comment on above: Performed By: #### 4 5218 ####[facility] [address] [place] [address] Glenn Gudino M.D. [id number] Platelet mean volume (Bld) [Entitic vol] 9.6 fL Normal 9.4-12.4 [facility] Comment on above: Performed By: #### 4 5218 ####[facility] [address] [place], [place] [id number] Glenn Gudino M.D. [id number] Platelets (Bld) [#/Vol] 375 10*3/uL Normal 150-400 [facility] Comment on above: Performed By: #### 4 5218 ####[facility] [address] [place], [place] [id number] Glenn Gudino M.D. [id number] RBC (Bld) [#/Vol] 2.75 10*6/uL Low 4.00-5.20 [facility] Comment on above: Performed By: #### 4 5218 ####[facility] [address] [place], [place] [id number] Glenn Gudino M.D. [id number] WBC (Bld) [#/Vol] 17.69 10*3/uL High 4.50-11.00 [facility] Comment on above: Performed By: #### 4 5218 ####[facility] [address] [place] [address] Glenn Gudino M.D. [id number] MAGNESIUM LEVELon 02-11-2024 Magnesium [Mass/Vol] 2.4 mg/dL Normal 1.6-2.4 [facility] Comment on above: Performed By: #### 4 6109 ####[facility] [address] [place] [address] Glenn Gudino M.D. [id number] POC GLUCOSE - [facility] 024 Glucose [Mass/Vol] 194 mg/dL High [address] [place] [address] Comment on above: Performed By: #### 4 6932 ####[facility] [address] [place] [address] [id number] [facility] Glucose [Mass/Vol] 138 mg/dL High [address] [place] [address] Comment on above: Performed By: #### 4 6932 ####[facility] [address] [place] [address] [id number] [facility] Glucose [Mass/Vol] 106 mg/dL High [address] [place] [address] Comment on above: Performed By: #### 4 2822 ####[facility] [address] [place] [address] [id number] [facility] Glucose [Mass/Vol] 134 mg/dL High [address] [place] [address] Comment on above: Performed By: #### 4 0401 ####[facility] [address] [place] [address] [id number] [facility] Glucose [Mass/Vol] 152 mg/dL High [address] [place] [address] Comment on above: Performed By: #### 4 0261 ####[facility] [address] [facility] [address] [id number] [facility] Glucose [Mass/Vol] 171 mg/dL High 65-[address] [facility] Comment on above: Performed By: #### 4 6932 ####[facility] [address] [place] [address] [id number] [facility] Glucose [Mass/Vol] 169 mg/dL High 65-[address] [facility] Comment on above: Performed By: #### 4 6932 ####[facility] [address] [place] [address] [id number] [facility] RENAL FUNCTION PANELon 02-10 Albumin [Mass/Vol] 2.3 g/dL Low 3.2-5.[address] [facility] Comment on above: Order Comment: [facility] has implemented the eGFR calculation approach that does not have a coefficient for race that conforms to the NKF-ASN Task Force Recommendations. Performed By: #### 4 6449 ####[facility] [address] [place] [address] Glenn Gudino M.D. [id number] Anion gap [Moles/Vol] 17 mmol/L Normal 10-20 [facility] Comment on above: Order Comment: [facility] has implemented the eGFR calculation approach that does not have a coefficient for race that conforms to the NKF-ASN Task Force Recommendations. Performed By: #### 4 6449 ####[facility] [address] [place] [address] Glenn Gudino M.D. [id number] Calcium [Mass/Vol] 8.0 mg/dL Low 8.4-10.[address] [facility] Comment on above: Order Comment: [facility] has implemented the eGFR calculation approach that does not have a coefficient for race that conforms to the NKF-ASN Task Force Recommendations. Performed By: #### 4 6449 ####[facility] [address] [place] [address] Glenn Gudino M.D. [id number] Chloride [Moles/Vol] 103 mmol/L Normal 98-108 [facility] Comment on above: Order Comment: [facility] has implemented the eGFR calculation approach that does not have a coefficient for race that conforms to the NKF-ASN Task Force Recommendations. Performed By: #### 4 6449 ####[facility] [address] [place] [address] Glenn Gudino M.D. [id number] Creatinine [Mass/Vol] 2.46 mg/dL High 0.60-1.10 [facility] Comment on above: Order Comment: [facility] has implemented the eGFR calculation approach that does not have a coefficient for race that conforms to the NKF-ASN Task Force Recommendations. Performed By: #### 4 6449 ####[facility] [address] [place], [place] [id number] Glenn Gudino M.D. [id number] EGFR 22 mL/min/1.73 m2 Low >=60 [facility] Comment on above: Order Comment: [facility] has implemented the eGFR calculation approach that does not have a coefficient for race that conforms to the NKF-ASN Task Force Recommendations. Result Comment: Joi mated GFR was calculated using the 2020 CKD-EPI creatinine equation. Performed By: #### 4 6449 ####[facility] [address] [place], [place] [address] Glenn Gudino M.D. [id number] Glucose [Mass/Vol] 187 mg/dL High 65-[address] [facility] Comment on above: Order Comment: [facility] has implemented the eGFR calculation approach that does not have a coefficient for race that conforms to the NKF-ASN Task Force Recommendations. Performed By: #### 4 6449 ####[facility] [address] [place] [address] Glenn Gudino M.D. [id number] HCO3 (Bld) [Moles/Vol] 22 mmol/L Normal 21-32 [facility] Comment on above: Order Comment: [facility] has implemented the eGFR calculation approach that does not have a coefficient for race that conforms to the NKF-ASN Task Force Recommendations. Performed By: #### 4 6449 ####[facility] [address] [place] [address] Glenn Gudino M.D. [id number] Phosphate [Mass/Vol] 5.2 mg/dL High 2.8-4.1 [facility] Comment on above: Order Comment: [facility] has implemented the eGFR calculation approach that does not have a coefficient for race that conforms to the NKF-ASN Task Force Recommendations. Performed By: #### 4 6449 ####[facility] [address] [place], [place] [address] Glenn Gudino M.D. [id number] Potassium [Moles/Vol] 5.4 mmol/L High 3.5-5.1 [facility] Comment on above: Order Comment: [facility] has implemented the eGFR calculation approach that does not have a coefficient for race that conforms to the NKF-ASN Task Force Recommendations. Performed By: #### 4 6449 ####[facility] [address] [place], [place] [address] Glenn Gudino M.D. [id number] Sodium [Moles/Vol] 137 mmol/L Normal 135-[address] [facility] Comment on above: Order Comment: [facility] has implemented the eGFR calculation approach that does not have a coefficient for race that conforms to the NKF-ASN Task Force Recommendations. Performed By: #### 4 6449 ####[facility] [address] [place] [address] Glenn Gudino M.D. [id number] Urea nitrogen [Mass/Vol] 57 mg/dL High 8-25 [facility] Comment on above: Order Comment: [facility] has implemented the eGFR calculation approach that does not have a coefficient for race that conforms to the NKF-ASN Task Force Recommendations. Performed By: #### 4 6449 ####[facility] [address] [place] [address] Glenn Gudino M.D. [id number] Urea nitrogen/Creatinine [Mass ratio] 23.2 mg/mg High 10.0-20.0 [facility] Comment on above: Order Comment: [facility] has implemented the eGFR calculation approach that does not have a coefficient for race that conforms to the NKF-ASN Task Force Recommendations. Performed By: #### 4 6449 ####[facility] [address] [place] [address] Glenn Gudino M.D. [id number] XR CHEST PA/APon 02-11-2024 XR CHEST PA/AP Normal [facility] Comment on above: Order Comment: Injur y/Trauma or Illness?:Illness/OtherHow long have you had these symptoms (acute/chronic)?:AcuteReason for exam?:chest tube palcement, pneumothoraxHistory of cancer?:uSurgeries, chemotherapy, or radiation?:uType of Exam?:InitialAdditional signs and symptoms?:. CALCIUM, IONIZEDon CALCIUM IONIZED 4.7 mg/dL Normal 4.5-5.3 [facility] Comment on above: Order Comment: Serum , non-CRRT source. Performed By: #### 4 5190 ####[facility] [address] [place] [address] 56811 Glenn Gudino M.D. [id number] CBCon 02-10-2024 AUTO NRBC 0.0 % Normal [facility] Comment on above: Performed By: #### 4 [id number] ####[facility] [address] [place] [address] 25409 Glenn Gudino M.D. [id number] AUTO NRBC ABS COUNT 0.00 K/mcL Normal 0.00-0.00 [facility] Comment on above: Performed By: #### 4 [id number] ####[facility] [address] [place], [place] [id number] Glenn Gudino M.D. [id number] Erythrocyte distribution width (RBC) [Ratio] 19.4 % High 11.6-14.8 [facility] Comment on above: Performed By: #### 4 [id number] ####[facility] [address] [place] [address] Glenn Gudino M.D. [id number] Hematocrit (Bld) [Volume fraction] 22.9 % Low 36.0-46.0 [facility] Comment on above: Performed By: #### 4 [id number] ####[facility] [address] [place] [address] Glenn Gudino M.D. [id number] Hemoglobin (Bld) [Mass/Vol] 7.4 g/dL Low 12.0-16.0 [facility] Comment on above: Performed By: #### 4 [id number] ####[facility] [address] [place], [place] [id number] Glenn Gudino M.D. [id number] MCH (RBC) [Entitic mass] 29.6 pg Normal 26.0-34.0 [facility] Comment on above: Performed By: #### 4 [id number] ####[facility] [address] [place] [address] Glenn Gudino M.D. [id number] MCV (RBC) [Entitic vol] 91.6 fL Normal 80.0-100.0 [facility] Comment on above: Performed By: #### 4 3218 ####[facility] [address] [place], [place] [id number] Glenn Gudino M.D. [id number] MEAN CORPUSCULAR HEMOGLOBIN CONC 32.3 g/dL Normal 31.0-37.0 [facility] Comment on above: Performed By: #### 4 [id number] ####[facility] [address] [place] [address] 90130 Glenn Gudino M.D. [id number] Platelet mean volume (Bld) [Entitic vol] 9.8 fL Normal 9.4-12.4 [facility] Comment on above: Performed By: #### 4 [id number] ####[facility] [address] [place] [address] 51037 Glenn Gudino M.D. [id number] Platelets (Bld) [#/Vol] 323 10*3/uL Normal 150-400 [facility] Comment on above: Performed By: #### 4 [id number] ####[facility] [address] [place] [address] 98054 Glenn Gudino M.D. [id number] RBC (Bld) [#/Vol] 2.50 10*6/uL Low 4.00-5.20 [facility] Comment on above: Performed By: #### 4 [id number] ####[facility] [address] [place] [address] 71842 Glenn Gudino M.D. [id number] WBC (Bld) [#/Vol] 16.68 10*3/uL High 4.50-11.00 [facility] Comment on above: Performed By: #### 4 [id number] ####[facility] [address] [place] [address] 75667 Glenn Gudino M.D. [id number] MAGNESIUM LEVELon 02-10-2024 Magnesium [Mass/Vol] 2.2 mg/dL Normal 1.6-2.4 [facility] Comment on above: Performed By: #### 4 6109 ####[facility] [address] [place] [address] 37142 Glenn Gudino M.D. [id number] [facility] Glucose [Mass/Vol] 197 mg/dL High 65-[address] [facility] Comment on above: Performed By: #### 4 6932 ####[facility] [address] [place] [address] [id number] [facility] Glucose [Mass/Vol] 181 mg/dL High [address] [place] [address] Comment on above: Performed By: #### 4 6932 ####[facility] [address] [place] [address] [id number] [facility] Glucose [Mass/Vol] 161 mg/dL High [address] [place] [address] Comment on above: Performed By: #### 4 6932 ####[facility] [address] [place] [address] [id number] [facility] Glucose [Mass/Vol] 173 mg/dL [address] Comment on above: Performed By: #### 4 6932 ####[facility] [address] [place] [address] [id number] [facility] Glucose [Mass/Vol] 198 mg/dL [address] Comment on above: Performed By: #### 4 6932 ####[facility] [address] [place] [address] [id number] [facility] Glucose [Mass/Vol] 178 mg/dL [address] Comment on above: Performed By: #### 4 6932 ####[facility] [address] [place] [address] [id number] [facility] RENAL FUNCTION PANELon 02-09 Albumin [Mass/Vol] 2.3 g/dL Low 3.2-5.[address] [facility] Comment on above: Order Comment: [facility] has implemented the eGFR calculation approach that does not have a coefficient for race that conforms to the NKF-ASN Task Force Recommendations. Performed By: #### 4 6449 ####[facility] [address] [place] [address] Glenn Gudino M.D. [id number] Anion gap [Moles/Vol] 16 mmol/L Normal 10-20 [facility] Comment on above: Order Comment: [facility] has implemented the eGFR calculation approach that does not have a coefficient for race that conforms to the NKF-ASN Task Force Recommendations. Performed By: #### 4 6449 ####[facility] [address] [place] [address] 02131 Glenn Gudino M.D. [id number] Calcium [Mass/Vol] 7.6 mg/dL Low 8.4-10.[address] [facility] Comment on above: Order Comment: [facility] has implemented the eGFR calculation approach that does not have a coefficient for race that conforms to the NKF-ASN Task Force Recommendations. Performed By: #### 4 6449 ####[facility] [address] [place] [address] 72181 Glenn Gudino M.D. [id number] Chloride [Moles/Vol] 101 mmol/L Normal 98-108 [facility] Comment on above: Order Comment: [facility] has implemented the eGFR calculation approach that does not have a coefficient for race that conforms to the NKF-ASN Task Force Recommendations. Performed By: #### 4 6449 ####[facility] [address] [place], [place] [address] Glenn Gudino M.D. [id number] Creatinine [Mass/Vol] 2.03 mg/dL High 0.60-1.10 [facility] Comment on above: Order Comment: [facility] has implemented the eGFR calculation approach that does not have a coefficient for race that conforms to the NKF-ASN Task Force Recommendations. Performed By: #### 4 6449 ####[facility] [address] [place] [address] 23978 Glenn Gudino M.D. [id number] EGFR 27 mL/min/1.73 m2 Low >=60 [facility] Comment on above: Order Comment: [facility] has implemented the eGFR calculation approach that does not have a coefficient for race that conforms to the NKF-ASN Task Force Recommendations. Result Comment: Joi mated GFR was calculated using the 2020 CKD-EPI creatinine equation. Performed By: #### 4 6449 ####[facility] [address] [place], [place] [address] Glenn Gudino M.D. [id number] Glucose [Mass/Vol] 315 mg/dL High 65-[address] [facility] Comment on above: Order Comment: [facility] has implemented the eGFR calculation approach that does not have a coefficient for race that conforms to the NKF-ASN Task Force Recommendations. Performed By: #### 4 6449 ####[facility] [address] [place] [address] 68651 Glenn Gudino M.D. [id number] HCO3 (Bld) [Moles/Vol] 25 mmol/L Normal 21-32 [facility] Comment on above: Order Comment: [facility] has implemented the eGFR calculation approach that does not have a coefficient for race that conforms to the NKF-ASN Task Force Recommendations. Performed By: #### 4 6449 ####[facility] [address] [place] [address] 23551 Glenn Gudino M.D. [id number] Phosphate [Mass/Vol] 4.9 mg/dL High 2.8-4.1 [facility] Comment on above: Order Comment: [facility] has implemented the eGFR calculation approach that does not have a coefficient for race that conforms to the NKF-ASN Task Force Recommendations. Performed By: #### 4 6449 ####[facility] [address] [place] [address] 40402 Glenn Gudino M.D. [id number] Potassium [Moles/Vol] 5.6 mmol/L High 3.5-5.1 [facility] Comment on above: Order Comment: [facility] has implemented the eGFR calculation approach that does not have a coefficient for race that conforms to the NKF-ASN Task Force Recommendations. Performed By: #### 4 6449 ####[facility] [address] [place] [address] 62906 Glenn Gudino M.D. [id number] Sodium [Moles/Vol] 136 mmol/L Normal 135-[address] [facility] Comment on above: Order Comment: [facility] has implemented the eGFR calculation approach that does not have a coefficient for race that conforms to the NKF-ASN Task Force Recommendations. Performed By: #### 4 6449 ####[facility] [address] [place] [address] 63001 Glenn Gudino M.D. [id number] Urea nitrogen [Mass/Vol] 40 mg/dL High 8-25 [facility] Comment on above: Order Comment: [facility] has implemented the eGFR calculation approach that does not have a coefficient for race that conforms to the NKF-ASN Task Force Recommendations. Performed By: #### 4 6449 ####[facility] [address] [place] [address] 93627 Glenn Gudino M.D. [id number] Urea nitrogen/Creatinine [Mass ratio] 19.7 mg/mg Normal 10.0-20.0 [facility] Comment on above: Order Comment: [facility] has implemented the eGFR calculation approach that does not have a coefficient for race that conforms to the NKF-ASN Task Force Recommendations. Performed By: #### 4 6449 ####[facility] [address] [place] [address] 24971 Glenn Gudino M.D. [id number] XR CHEST PA/APon 02-10-2024 XR CHEST PA/AP Normal [facility] Comment on above: Order Comment: Injur y/Trauma or Illness?:Illness/OtherHow long have you had these symptoms (acute/chronic)?:AcuteReason for exam?:chest tube palcement, pneumothoraxHistory of cancer?:uSurgeries, chemotherapy, or radiation?:uType of Exam?:InitialAdditional signs and symptoms?:. ANTIBODY IDENTIFICATION-Con 02-09-2024 ANTIBODY IDENTIFICATION-C Normal [facility] Comment on above: Performed By: #### 4 6427_Anti-C ####[facility] [address] [place] [address] Nurys Oneill MD [id number] RMHTS CALCIUM, IONIZEDon CALCIUM IONIZED 4.5 mg/dL Normal 4.5-5.3 [facility] Comment on above: Order Comment: Serum , non-CRRT source. Performed By: #### 4 5190 ####[facility] [address] [place] [address] Glenn Gudino M.D. [id number] CBCon 02-09-2024 AUTO NRBC 0.0 % Normal [facility] Comment on above: Performed By: #### 4 [id number] ####[facility] [address] [place] [address] Glenn Gudino M.D. [id number] AUTO NRBC ABS COUNT 0.00 K/mcL Normal 0.00-0.00 [facility] Comment on above: Performed By: #### 4 [id number] ####[facility] [address] [place] [address] Glenn Gudino M.D. [id number] Erythrocyte distribution width (RBC) [Ratio] 19.5 % High 11.6-14.8 [facility] Comment on above: Performed By: #### 4 [id number] ####[facility] [address] [place], [place] [address] Glenn Gudino M.D. [id number] Hematocrit (Bld) [Volume fraction] 23.4 % Low 36.0-46.0 [facility] Comment on above: Performed By: #### 4 [id number] ####[facility] [address] [place], [place] [id number] Glenn Gudino M.D. [id number] Hemoglobin (Bld) [Mass/Vol] 7.5 g/dL Low 12.0-16.0 [facility] Comment on above: Performed By: #### 4 5218 ####[facility] [address] [place] [address] Glenn Gudino M.D. [id number] MCH (RBC) [Entitic mass] 29.2 pg Normal 26.0-34.0 [facility] Comment on above: Performed By: #### 4 [id number] ####[facility] [address] [place] [address] Glenn Gudino M.D. [id number] MCV (RBC) [Entitic vol] 91.1 fL Normal 80.0-100.0 [facility] Comment on above: Performed By: #### 4 [id number] ####[facility] [address] [place] [address] Glenn Gudino M.D. [id number] MEAN CORPUSCULAR HEMOGLOBIN CONC 32.1 g/dL Normal 31.0-37.0 [facility] Comment on above: Performed By: #### 4 5218 ####[facility] [address] [place] [address] Glenn Gudino M.D. [id number] Platelet mean volume (Bld) [Entitic vol] 9.6 fL Normal 9.4-12.4 [facility] Comment on above: Performed By: #### 4 [id number] ####[facility] [address] [place], [place] [id number] Glenn Gudino M.D. [id number] Platelets (Bld) [#/Vol] 281 10*3/uL Normal 150-400 [facility] Comment on above: Performed By: #### 4 [id number] ####[facility] [address] [place], [place] [id number] Glenn Gudino M.D. [id number] RBC (Bld) [#/Vol] 2.57 10*6/uL Low 4.00-5.20 [facility] Comment on above: Performed By: #### 4 [id number] ####[facility] [address] [place] [address] 04486 Glenn Gudino M.D. [id number] WBC (Bld) [#/Vol] 11.20 10*3/uL High 4.50-11.00 [facility] Comment on above: Performed By: #### 4 [id number] ####[facility] [address] [place] [address] Glenn Gudino M.D. [id number] MAGNESIUM LEVELon 02-09-2024 Magnesium [Mass/Vol] 2.0 mg/dL Normal 1.6-2.4 [facility] Comment on above: Performed By: #### 4 6109 ####[facility] [address] [place] [address] Glenn Gudino M.D. [id number] POC GLUCOSE [facility] 024 Glucose [Mass/Vol] 198 mg/dL High [address] [place] [address] Comment on above: Performed By: #### 4 6951 ####[facility] [address] [place] [address] [id number] [facility] Glucose [Mass/Vol] 168 mg/dL High [address] [place] [address] Comment on above: Performed By: #### 4 7468 ####[facility] [address] [place] [address] [id number] [facility] Glucose [Mass/Vol] 246 mg/dL [address] Comment on above: Performed By: #### 4 6531 ####[facility] [address] [place] [address] [id number] [facility] Glucose [Mass/Vol] 260 mg/dL [address] Comment on above: Performed By: #### 4 6297 ####[facility] [address] [place] [address] 968[address] [id number] [facility] Glucose [Mass/Vol] 255 mg/dL High 65-[address] [facility] Comment on above: Performed By: #### 4 6932 ####[facility] [address] [place] [address] 22677 [id number] [facility] Glucose [Mass/Vol] 217 mg/dL High 65-[address] [facility] Comment on above: Performed By: #### 4 6932 ####[facility] [address] [place] [address] 09522 [id number] [facility] RENAL FUNCTION PANELon 02-08 Albumin [Mass/Vol] 2.1 g/dL Low 3.2-5.[address] [facility] Comment on above: Order Comment: [facility] has implemented the eGFR calculation approach that does not have a coefficient for race that conforms to the NKF-ASN Task Force Recommendations. Performed By: #### 4 6449 ####[facility] [address] [place] [address] Glenn Gudino M.D. [id number] Anion gap [Moles/Vol] 16 mmol/L Normal 10-20 [facility] Comment on above: Order Comment: [facility] has implemented the eGFR calculation approach that does not have a coefficient for race that conforms to the NKF-ASN Task Force Recommendations. Performed By: #### 4 6449 ####[facility] [address] [place] [address] Glenn Gudino M.D. [id number] Calcium [Mass/Vol] 7.6 mg/dL Low 8.4-10.[address] [facility] Comment on above: Order Comment: [facility] has implemented the eGFR calculation approach that does not have a coefficient for race that conforms to the NKF-ASN Task Force Recommendations. Performed By: #### 4 6449 ####[facility] [address] [place] [address] Glenn Gudino M.D. [id number] Chloride [Moles/Vol] 103 mmol/L Normal 98-108 [facility] Comment on above: Order Comment: [facility] has implemented the eGFR calculation approach that does not have a coefficient for race that conforms to the NKF-ASN Task Force Recommendations. Performed By: #### 4 6449 ####[facility] [address] [place], [place] [id number] Glenn Gudino M.D. [id number] Creatinine [Mass/Vol] 2.58 mg/dL High 0.60-1.10 [facility] Comment on above: Order Comment: [facility] has implemented the eGFR calculation approach that does not have a coefficient for race that conforms to the NKF-ASN Task Force Recommendations. Performed By: #### 4 6449 ####[facility] [address] [place], [place] [id number] Glenn Gudino M.D. [id number] EGFR 21 mL/min/1.73 m2 Low >=60 [facility] Comment on above: Order Comment: [facility] has implemented the eGFR calculation approach that does not have a coefficient for race that conforms to the NKF-ASN Task Force Recommendations. Result Comment: Joi mated GFR was calculated using the 2020 CKD-EPI creatinine equation. Performed By: #### 4 6449 ####[facility] [address] [place], [place] [address] Glenn Gudino M.D. [id number] Glucose [Mass/Vol] 233 mg/dL High 65-[address] [facility] Comment on above: Order Comment: [facility] has implemented the eGFR calculation approach that does not have a coefficient for race that conforms to the NKF-ASN Task Force Recommendations. Performed By: #### 4 6449 ####[facility] [address] [place] [address] 87679 Glnen Gudino M.D. [id number] HCO3 (Bld) [Moles/Vol] 22 mmol/L Normal 21-32 [facility] Comment on above: Order Comment: [facility] has implemented the eGFR calculation approach that does not have a coefficient for race that conforms to the NKF-ASN Task Force Recommendations. Performed By: #### 4 6449 ####[facility] [address] [place] [address] Glenn Gudino M.D. [id number] Phosphate [Mass/Vol] 4.4 mg/dL High 2.8-4.1 [facility] Comment on above: Order Comment: [facility] has implemented the eGFR calculation approach that does not have a coefficient for race that conforms to the NKF-ASN Task Force Recommendations. Performed By: #### 4 6449 ####[facility] [address] [place], [place] [address] Glenn Gudino M.D. [id number] Potassium [Moles/Vol] 4.8 mmol/L Normal 3.5-5.1 [facility] Comment on above: Order Comment: [facility] has implemented the eGFR calculation approach that does not have a coefficient for race that conforms to the NKF-ASN Task Force Recommendations. Performed By: #### 4 6449 ####[facility] [address] [place] [address] Glenn Gudino M.D. [id number] Sodium [Moles/Vol] 136 mmol/L Normal 135-[address] [facility] Comment on above: Order Comment: [facility] has implemented the eGFR calculation approach that does not have a coefficient for race that conforms to the NKF-ASN Task Force Recommendations. Performed By: #### 4 6449 ####[facility] [address] [place] [address] 13917 Glenn Gudino M.D. [id number] Urea nitrogen [Mass/Vol] 52 mg/dL High 8-25 [facility] Comment on above: Order Comment: [facility] has implemented the eGFR calculation approach that does not have a coefficient for race that conforms to the NKF-ASN Task Force Recommendations. Performed By: #### 4 6449 ####[facility] [address] [place], [place] [address] Glenn Gudino M.D. [id number] Urea nitrogen/Creatinine [Mass ratio] 20.2 mg/mg High 10.0-20.0 [facility] Comment on above: Order Comment: [facility] has implemented the eGFR calculation approach that does not have a coefficient for race that conforms to the NKF-ASN Task Force Recommendations. Performed By: #### 4 6449 ####[facility] [address] [place] [address] Glenn Gudino M.D. [id number] TYPE AND SCREENon 02-09-2024 TYPE AND SCREEN ABORH: O Positive AB SCREEN: Positive EXPIRATION DATE: 02/12/2024 23:59 EST Normal [facility] Comment on above: Performed By: #### 4 6619 ####[facility] [address] [place] [address] Nurys Oneill MD [id number] HTS XR CHEST PA/APon 02-09-2024 XR CHEST PA/AP [facility] Comment on above: Order Comment: Injur y/Trauma or Illness?:Illness/OtherHow long have you had these symptoms (acute/chronic)?:UnknownReason for exam?:chest tube palcement, pneumothoraxHistory of cancer?:uSurgeries, chemotherapy, or radiation?:uType of Exam?:InitialAdditional signs and symptoms?:. CALCIUM, IONIZEDon CALCIUM IONIZED 4.5 mg/dL Normal 4.5-5.3 [facility] Comment on above: Order Comment: Serum , non-CRRT source. Performed By: #### 4 5190 ####[facility] [address] [place] [address] Glenn Gudino M.D. [id number] CBCon 02-08-2024 AUTO NRBC 0.0 % [facility] Comment on above: Performed By: #### 4 [id number] ####[facility] [address] [place], [place] [id number] Glenn Gudino M.D. [id number] AUTO NRBC ABS COUNT 0.00 K/mcL Normal 0.00-0.00 [facility] Comment on above: Performed By: #### 4 5218 ####[facility] [address] [place] [address] Glenn Gudino M.D. [id number] Erythrocyte distribution width (RBC) [Ratio] 19.3 % High 11.6-14.8 [facility] Comment on above: Performed By: #### 4 5218 ####[facility] [address] [place] [address] Glenn Gudino M.D. [id number] Hematocrit (Bld) [Volume fraction] 22.2 % Low 36.0-46.0 [facility] Comment on above: Performed By: #### 4 [id number] ####[facility] [address] [place], [place] [id number] Glenn Gudino M.D. [id number] Hemoglobin (Bld) [Mass/Vol] 7.0 g/dL Low 12.0-16.0 [facility] Comment on above: Performed By: #### 4 5218 ####[facility] [address] [place], [place] [id number] Glenn Gudino M.D. [id number] MCH (RBC) [Entitic mass] 29.2 pg Normal 26.0-34.0 [facility] Comment on above: Performed By: #### 4 [id number] ####[facility] [address] [place], [place] [id number] Glenn Gudino M.D. [id number] MCV (RBC) [Entitic vol] 92.5 fL Normal 80.0-100.0 [facility] Comment on above: Performed By: #### 4 [id number] ####[facility] [address] [place] [address] 25637 Glenn Gudino M.D. [id number] MEAN CORPUSCULAR HEMOGLOBIN CONC 31.5 g/dL Normal 31.0-37.0 [facility] Comment on above: Performed By: #### 4 5218 ####[facility] [address] [place], [place] [id number] Glenn Gudino M.D. [id number] Platelet mean volume (Bld) [Entitic vol] 9.7 fL Normal 9.4-12.4 [facility] Comment on above: Performed By: #### 4 [id number] ####[facility] [address] [place] [address] 14364 Glenn Gudino M.D. [id number] Platelets (Bld) [#/Vol] 239 10*3/uL Normal 150-400 [facility] Comment on above: Performed By: #### 4 [id number] ####[facility] [address] [place] [address] Glenn Gudino M.D. [id number] RBC (Bld) [#/Vol] 2.40 10*6/uL Low 4.00-5.20 [facility] Comment on above: Performed By: #### 4 5218 ####[facility] [address] [place], [place] [id number] Glenn Gudino M.D. [id number] WBC (Bld) [#/Vol] 11.15 10*3/uL High 4.50-11.00 [facility] Comment on above: Performed By: #### 4 [id number] ####[facility] [address] [place] [address] Glenn Gudino M.D. [id number] CT ANGIOGRAM ABDOMEN PELVISo n 02-08-2024 CT ANGIOGRAM ABDOMEN PELVIS Normal [facility] Comment on above: Order Comment: Injur y/Trauma or Illness?:Illness/OtherHow long have you had these symptoms (acute/chronic)?:AcuteReason for exam?:Retroperitoneal hematoma, follow up, with arterial and venous phase - discussed with Dr. Li...Type of Exam?:Subsequent/Follow-upAdditional signs and symptoms?:Retroperitoneal hematoma, follow up, with arterial and venous phase - discussed with Dr. Li... MAGNESIUM LEVELon 02-08-2024 Magnesium [Mass/Vol] 1.6 mg/dL Normal 1.6-2.4 [facility] Comment on above: Performed By: #### 4 6109 ####[facility] [address] [place] [address] Glenn Gudino M.D. [id number] [facility] Glucose [Mass/Vol] 208 mg/dL High [address] [place] [address] Comment on above: Performed By: #### 4 6932 ####[facility] [address] [place] [address] [id number] [facility] Glucose [Mass/Vol] 157 mg/dL [address] Comment on above: Performed By: #### 4 6932 ####[facility] [address] [place] [address] [id number] [facility] Glucose [Mass/Vol] 148 mg/dL [address] Comment on above: Performed By: #### 4 6932 ####[facility] [address] [place] [address] [id number] [facility] Glucose [Mass/Vol] 170 mg/dL [address] Comment on above: Performed By: #### 4 6933 ####[facility] [address] [place] [address] [id number] [facility] Glucose [Mass/Vol] 178 mg/dL High [address] [place] [address] Comment on above: Performed By: #### 4 6912 ####[facility] [address] [place], [place] [id number] [facility] PT/INRon 02-08-2024 INR Coag (PPP) [Relative time] 1.2 {INR} High 0.8-1.1 [facility] Comment on above: Order Comment: Jennifer retana the induction phase of oral anticoagulation, the INR may not reflect the anticoagulation status of the patient. Therapeutic ranges for INR's are:Most clinical situations: INR 2.0-3.0Mechanical Prosthetic Valve: INR 2.5-3.5Critical: INR >5.0 Performed By: #### 4 6391 ####[facility] [address] [place] [address] Glenn Gduino M.D. [id number] PT Coag (PPP) [Time] 14.7 s High 11.8-14.3 [facility] Comment on above: Order Comment: Jennifer retana the induction phase of oral anticoagulation, the INR may not reflect the anticoagulation status of the patient. Therapeutic ranges for INR's are:Most clinical situations: INR 2.0-3.0Mechanical Prosthetic Valve: INR 2.5-3.5Critical: INR >5.0 Performed By: #### 4 6391 ####[facility] [address] [place] [address] Glenn Gudino M.D. [id number] RENAL FUNCTION PANELon 02-07 Albumin [Mass/Vol] 2.3 g/dL Low 3.2-5.[address] [facility] Comment on above: Order Comment: [facility] has implemented the eGFR calculation approach that does not have a coefficient for race that conforms to the NKF-ASN Task Force Recommendations. Performed By: #### 4 6449 ####[facility] [address] [place] [address] Glenn Gudino M.D. [id number] Anion gap [Moles/Vol] 13 mmol/L Normal 10-20 [facility] Comment on above: Order Comment: [facility] has implemented the eGFR calculation approach that does not have a coefficient for race that conforms to the NKF-ASN Task Force Recommendations. Performed By: #### 4 6449 ####[facility] [address] [place] [address] Glenn Gudino M.D. [id number] Calcium [Mass/Vol] 7.3 mg/dL Low 8.4-10.[address] [facility] Comment on above: Order Comment: [facility] has implemented the eGFR calculation approach that does not have a coefficient for race that conforms to the NKF-ASN Task Force Recommendations. Performed By: #### 4 6449 ####[facility] [address] [place] [address] Glenn Gudino M.D. [id number] Chloride [Moles/Vol] 101 mmol/L Normal 98-108 [facility] Comment on above: Order Comment: [facility] has implemented the eGFR calculation approach that does not have a coefficient for race that conforms to the NKF-ASN Task Force Recommendations. Performed By: #### 4 6449 ####[facility] [address] [place] [address] Glenn Gudino M.D. [id number] Creatinine [Mass/Vol] 2.03 mg/dL High 0.60-1.10 [facility] Comment on above: Order Comment: [facility] has implemented the eGFR calculation approach that does not have a coefficient for race that conforms to the NKF-ASN Task Force Recommendations. Performed By: #### 4 6449 ####[facility] [address] [place] [address] Glenn Gudino M.D. [id number] EGFR 27 mL/min/1.73 m2 Low >=60 [facility] Comment on above: Order Comment: [facility] has implemented the eGFR calculation approach that does not have a coefficient for race that conforms to the NKF-ASN Task Force Recommendations. Result Comment: Joi mated GFR was calculated using the 2020 CKD-EPI creatinine equation. Performed By: #### 4 6449 ####[facility] [address] [place] [address] 639[address] Glenn Gudino M.D. [id number] Glucose [Mass/Vol] 195 mg/dL High 65-[address] [facility] Comment on above: Order Comment: [facility] has implemented the eGFR calculation approach that does not have a coefficient for race that conforms to the NKF-ASN Task Force Recommendations. Performed By: #### 4 6449 ####[facility] [address] [place] [address]65[address] Glenn Gudino M.D. [id number] HCO3 (Bld) [Moles/Vol] 26 mmol/L Normal 21-32 [facility] Comment on above: Order Comment: [facility] has implemented the eGFR calculation approach that does not have a coefficient for race that conforms to the NKF-ASN Task Force Recommendations. Performed By: #### 4 6449 ####[facility] [address] [place] [address] 990[address] Glenn Gudino M.D. [id number] Phosphate [Mass/Vol] 2.3 mg/dL Low 2.8-4.1 [facility] Comment on above: Order Comment: [facility] has implemented the eGFR calculation approach that does not have a coefficient for race that conforms to the NKF-ASN Task Force Recommendations. Performed By: #### 4 6449 ####[facility] [address] [place] [address]41 Glenn Gudino M.D. [id number] Potassium [Moles/Vol] 3.8 mmol/L Normal 3.5-5.1 [facility] Comment on above: Order Comment: [facility] has implemented the eGFR calculation approach that does not have a coefficient for race that conforms to the NKF-ASN Task Force Recommendations. Performed By: #### 4 6449 ####[facility] [address] [place], [place] [address] Glenn Gudino M.D. [id number] Sodium [Moles/Vol] 136 mmol/L Normal 135-[address] [facility] Comment on above: Order Comment: [facility] has implemented the eGFR calculation approach that does not have a coefficient for race that conforms to the NKF-ASN Task Force Recommendations. Performed By: #### 4 6449 ####[facility] [address] [place] [address] Glenn Gudino M.D. [id number] Urea nitrogen [Mass/Vol] 33 mg/dL High 8-25 [facility] Comment on above: Order Comment: [facility] has implemented the eGFR calculation approach that does not have a coefficient for race that conforms to the NKF-ASN Task Force Recommendations. Performed By: #### 4 6449 ####[facility] [address] [place] [address] Glenn Gudino M.D. [id number] Urea nitrogen/Creatinine [Mass ratio] 16.3 mg/mg Normal 10.0-20.0 [facility] Comment on above: Order Comment: [facility] has implemented the eGFR calculation approach that does not have a coefficient for race that conforms to the NKF-ASN Task Force Recommendations. Performed By: #### 4 6449 ####[facility] [address] [place] [address] 237[address] Glenn Gudino M.D. [id number] XR CHEST PA/APon 02-08-2024 XR CHEST PA/AP Normal [facility] Comment on above: Order Comment: Injur y/Trauma or Illness?:Illness/OtherHow long have you had these symptoms (acute/chronic)?:AcuteReason for exam?:chest tube palcement, pneumothoraxHistory of cancer?:uSurgeries, chemotherapy, or radiation?:uType of Exam?:OngoingAdditional signs and symptoms?:chest tube palcement, pneumothorax CALCIUM, IONIZEDon CALCIUM IONIZED 4.6 mg/dL Normal 4.5-5.3 [facility] Comment on above: Order Comment: Serum , non-CRRT source. Performed By: #### 4 5190 ####[facility] [address] [place] [address] 143[address] Glenn Gudino M.D. [id number] CBCon 02-07-2024 AUTO NRBC 0.0 % Normal [facility] Comment on above: Performed By: #### 4 5218 ####[facility] [address] [place], [place] [id number] Glenn Gudino M.D. [id number] AUTO NRBC ABS COUNT 0.00 K/mcL Normal 0.00-0.00 [facility] Comment on above: Performed By: #### 4 5218 ####[facility] [address] [place], [place] [id number] Glenn Gudino M.D. [id number] Erythrocyte distribution width (RBC) [Ratio] 18.7 % High 11.6-14.8 [facility] Comment on above: Performed By: #### 4 5218 ####[facility] [address] [place], [place] [address] Glenn Gudino M.D. [id number] Hematocrit (Bld) [Volume fraction] 24.3 % Low 36.0-46.0 [facility] Comment on above: Performed By: #### 4 5218 ####[facility] [address] [place], [place] [address] Glenn Gudino M.D. [id number] Hemoglobin (Bld) [Mass/Vol] 7.7 g/dL Low 12.0-16.0 [facility] Comment on above: Performed By: #### 4 5218 ####[facility] [address] [place], [place] [address] Glenn Gudino M.D. [id number] MCH (RBC) [Entitic mass] 29.1 pg Normal 26.0-34.0 [facility] Comment on above: Performed By: #### 4 5218 ####[facility] [address] [place] [address] Glenn Gudino M.D. [id number] MCV (RBC) [Entitic vol] 91.7 fL Normal 80.0-100.0 [facility] Comment on above: Performed By: #### 4 5218 ####[facility] [address] [place] [address] Glenn Gudino M.D. [id number] MEAN CORPUSCULAR HEMOGLOBIN CONC 31.7 g/dL Normal 31.0-37.0 [facility] Comment on above: Performed By: #### 4 5218 ####[facility] [address] [place], [place] [address] Glenn Gudino M.D. [id number] Platelet mean volume (Bld) [Entitic vol] 9.6 fL Normal 9.4-12.4 [facility] Comment on above: Performed By: #### 4 5218 ####[facility] [address] [place], [place] [address] Glenn Gudino M.D. [id number] Platelets (Bld) [#/Vol] 229 10*3/uL Normal 150-400 [facility] Comment on above: Performed By: #### 4 5218 ####[facility] [address] [place], [place] [address] Glenn Gudino M.D. [id number] RBC (Bld) [#/Vol] 2.65 10*6/uL Low 4.00-5.20 [facility] Comment on above: Performed By: #### 4 5218 ####[facility] [address] [place], [place] [address] Glenn Gudino M.D. [id number] WBC (Bld) [#/Vol] 13.25 10*3/uL High 4.50-11.00 [facility] Comment on above: Performed By: #### 4 5218 ####[facility] [address] [place], [place] [address] Glenn Gudino M.D. [id number] CONSULTon 02-07-2024 CONSULT Normal [facility] CV IR EMBOLIZATION (NON-NEUR O) (SPECIFY LOCATION)on 02-07-2024 CV IR EMBOLIZATION (NON-NEURO) (SPECIFY LOCATION) Normal [facility] CV IR LYMPHANGIOGRAMon 02-06 CV IR LYMPHANGIOGRAM Normal [facility] MAGNESIUM LEVELon 02-07-2024 Magnesium [Mass/Vol] 1.8 mg/dL Normal 1.6-2.4 [facility] Comment on above: Performed By: #### 4 6109 ####[facility] [address] [place] [address] 98192 Glenn Gudino M.D. [id number] POC GLUCOSE - [facility] 024 Glucose [Mass/Vol] 210 mg/dL High 65-[address] [place] [address] Comment on above: Performed By: #### 4 4377 ####[facility] [address] [place] [address] [id number] [facility] Glucose [Mass/Vol] 135 mg/dL High [address] [place] [address] Comment on above: Performed By: #### 4 7287 ####[facility] [address] [place] [address] [id number] [facility] Glucose [Mass/Vol] 186 mg/dL High [address] [place] [address] Comment on above: Performed By: #### 4 1423 ####[facility] [address] [place] [address] [id number] [facility] Glucose [Mass/Vol] 166 mg/dL High [address] [place] [address] Comment on above: Performed By: #### 4 8215 ####[facility] [address] [place] [address] [id number] [facility] Glucose [Mass/Vol] 163 mg/dL High 65-[address] [facility] Comment on above: Performed By: #### 4 6932 ####[facility] [address] [place] [address] [id number] [facility] RENAL FUNCTION PANELon 02-06 Albumin [Mass/Vol] 2.6 g/dL Low 3.2-5.[address] [facility] Comment on above: Order Comment: [facility] has implemented the eGFR calculation approach that does not have a coefficient for race that conforms to the NKF-ASN Task Force Recommendations. Performed By: #### 4 6449 ####[facility] [address] [place], [place] [address] Glenn Gudino M.D. [id number] Anion gap [Moles/Vol] 15 mmol/L Normal 10-20 [facility] Comment on above: Order Comment: [facility] has implemented the eGFR calculation approach that does not have a coefficient for race that conforms to the NKF-ASN Task Force Recommendations. Performed By: #### 4 6449 ####[facility] [address] [place], [place] [address] Glenn Gudino M.D. [id number] Calcium [Mass/Vol] 7.7 mg/dL Low 8.4-10.[address] [facility] Comment on above: Order Comment: [facility] has implemented the eGFR calculation approach that does not have a coefficient for race that conforms to the NKF-ASN Task Force Recommendations. Performed By: #### 4 6449 ####[facility] [address] [place] [address] 97027 Glenn Gudino M.D. [id number] Chloride [Moles/Vol] 99 mmol/L Normal 98-108 [facility] Comment on above: Order Comment: [facility] has implemented the eGFR calculation approach that does not have a coefficient for race that conforms to the NKF-ASN Task Force Recommendations. Performed By: #### 4 6449 ####[facility] [address] [place] [address] 75[address] Glenn Gudino M.D. [id number] Creatinine [Mass/Vol] 2.72 mg/dL High 0.60-1.10 [facility] Comment on above: Order Comment: [facility] has implemented the eGFR calculation approach that does not have a coefficient for race that conforms to the NKF-ASN Task Force Recommendations. Performed By: #### 4 6449 ####[facility] [address] [place], [place] [address] Glenn Gudino M.D. [id number] EGFR 19 mL/min/1.73 m2 Low >=60 [facility] Comment on above: Order Comment: [facility] has implemented the eGFR calculation approach that does not have a coefficient for race that conforms to the NKF-ASN Task Force Recommendations. Result Comment: Joi mated GFR was calculated using the 2020 CKD-EPI creatinine equation. Performed By: #### 4 6449 ####[facility] [address] [place], [place] [address] Glenn Gudino M.D. [id number] Glucose [Mass/Vol] 161 mg/dL High 65-[address] [facility] Comment on above: Order Comment: [facility] has implemented the eGFR calculation approach that does not have a coefficient for race that conforms to the NKF-ASN Task Force Recommendations. Performed By: #### 4 6449 ####[facility] [address] [place], [place] [address] Glenn Gudino M.D. [id number] HCO3 (Bld) [Moles/Vol] 26 mmol/L Normal 21-32 [facility] Comment on above: Order Comment: [facility] has implemented the eGFR calculation approach that does not have a coefficient for race that conforms to the NKF-ASN Task Force Recommendations. Performed By: #### 4 6449 ####[facility] [address] [place], [place] [address] Glenn Gudino M.D. [id number] Phosphate [Mass/Vol] 2.1 mg/dL Low 2.8-4.1 [facility] Comment on above: Order Comment: [facility] has implemented the eGFR calculation approach that does not have a coefficient for race that conforms to the NKF-ASN Task Force Recommendations. Performed By: #### 4 6449 ####[facility] [address] [place] [address] Glenn Gudino M.D. [id number] Potassium [Moles/Vol] 3.9 mmol/L Normal 3.5-5.1 [facility] Comment on above: Order Comment: [facility] has implemented the eGFR calculation approach that does not have a coefficient for race that conforms to the NKF-ASN Task Force Recommendations. Result Comment: Slig htly Hemolyzed Performed By: #### 4 6449 ####[facility] [address] [place], [place] [address] Glenn Gudino M.D. [id number] Sodium [Moles/Vol] 136 mmol/L Normal 135-[address] [facility] Comment on above: Order Comment: [facility] has implemented the eGFR calculation approach that does not have a coefficient for race that conforms to the NKF-ASN Task Force Recommendations. Performed By: #### 4 6449 ####[facility] [address] [place], [place] [address] Glenn Gudino M.D. [id number] Urea nitrogen [Mass/Vol] 42 mg/dL High 8-25 [facility] Comment on above: Order Comment: [facility] has implemented the eGFR calculation approach that does not have a coefficient for race that conforms to the NKF-ASN Task Force Recommendations. Performed By: #### 4 6449 ####[facility] [address] [place], [place] [address] Glenn Gudino M.D. [id number] Urea nitrogen/Creatinine [Mass ratio] 15.4 mg/mg Normal 10.0-20.0 [facility] Comment on above: Order Comment: [facility] has implemented the eGFR calculation approach that does not have a coefficient for race that conforms to the NKF-ASN Task Force Recommendations. Performed By: #### 4 6449 ####[facility] [address] [place] [address] Glenn Gudino M.D. [id number] XR CHEST PA/APon 02-07-2024 XR CHEST PA/AP Normal [facility] Comment on above: Order Comment: Injur y/Trauma or Illness?:Illness/OtherHow long have you had these symptoms (acute/chronic)?:AcuteReason for exam?:chest tube palcement, pneumothoraxHistory of cancer?:uSurgeries, chemotherapy, or radiation?:uType of Exam?:InitialAdditional signs and symptoms?:. ANTIBODY IDENTIFICATION-Con 02-06-2024 ANTIBODY IDENTIFICATION-C Normal [facility] Comment on above: Performed By: #### 4 6427_Anti-C ####[facility] [address] [place] [address] Nurys Oneill MD [id number] [facility] CALCIUM, IONIZEDon CALCIUM IONIZED 4.6 mg/dL Normal 4.5-5.3 [facility] Comment on above: Order Comment: Serum , non-CRRT source. Performed By: #### 4 5190 ####[facility] [address] [place] [address] Glenn Gudino M.D. [id number] CBCon 02-06-2024 AUTO NRBC 0.0 % Normal [facility] Comment on above: Performed By: #### 4 5218 ####[facility] [address] [place] [address] Glenn Gudino M.D. [id number] AUTO NRBC ABS COUNT 0.00 K/mcL Normal 0.00-0.00 [facility] Comment on above: Performed By: #### 4 5218 ####[facility] [address] [place], [place] [id number] Glenn Gudino M.D. [id number] Erythrocyte distribution width (RBC) [Ratio] 18.5 % High 11.6-14.8 [facility] Comment on above: Performed By: #### 4 5218 ####[facility] [address] [place] [address] Glenn Gudino M.D. [id number] Hematocrit (Bld) [Volume fraction] 24.0 % Low 36.0-46.0 [facility] Comment on above: Performed By: #### 4 5218 ####[facility] [address] [place] [address] Glenn Gudino M.D. [id number] Hemoglobin (Bld) [Mass/Vol] 7.5 g/dL Low 12.0-16.0 [facility] Comment on above: Performed By: #### 4 5218 ####[facility] [address] [place], [place] [id number] Glenn Gudino M.D. [id number] MCH (RBC) [Entitic mass] 28.4 pg Normal 26.0-34.0 [facility] Comment on above: Performed By: #### 4 5218 ####[facility] [address] [place], [place] [address] Glenn Gudino M.D. [id number] MCV (RBC) [Entitic vol] 90.9 fL Normal 80.0-100.0 [facility] Comment on above: Performed By: #### 4 5218 ####[facility] [address] [place], [place] [address] Glenn Gudino M.D. [id number] MEAN CORPUSCULAR HEMOGLOBIN CONC 31.3 g/dL Normal 31.0-37.0 [facility] Comment on above: Performed By: #### 4 5018 ####[facility] [address] [place] [address] Glenn Gudino M.D. [id number] Platelet mean volume (Bld) [Entitic vol] 10.2 fL Normal 9.4-12.4 [facility] Comment on above: Performed By: #### 4 5218 ####[facility] [address] [place] [address] 19349 Glenn Gudino M.D. [id number] Platelets (Bld) [#/Vol] 197 10*3/uL Normal 150-400 [facility] Comment on above: Performed By: #### 4 5218 ####[facility] [address] [place], [place] [id number] Glenn Gudino M.D. [id number] RBC (Bld) [#/Vol] 2.64 10*6/uL Low 4.00-5.20 [facility] Comment on above: Performed By: #### 4 5218 ####[facility] [address] [place] [address] Glenn Gudino M.D. [id number] WBC (Bld) [#/Vol] 11.41 10*3/uL High 4.50-11.00 [facility] Comment on above: Performed By: #### 4 5218 ####[facility] [address] [place] [address] 6[address] Glenn Gudino M.D. [id number] MAGNESIUM LEVELon 02-06-2024 Magnesium [Mass/Vol] 1.9 mg/dL Normal 1.6-2.4 [facility] Comment on above: Performed By: #### 4 6109 ####[facility] [address] [place] [address] 09633 Glenn Gudino M.D. [id number] [facility] Glucose [Mass/Vol] 156 mg/dL High 65-[address] [facility] Comment on above: Performed By: #### 4 6932 ####[facility] [address] [place] [address] [id number] [facility] Glucose [Mass/Vol] 135 mg/dL High [facility] Comment on above: Performed By: #### 4 6932 ####[facility] [address] [place] [address] [id number] [facility] Glucose [Mass/Vol] 150 mg/dL High [facility] Comment on above: Performed By: #### 4 6932 ####[facility] [address] [place] [address] [id number] RMHPOC Glucose [Mass/Vol] 196 mg/dL High [facility] Comment on above: Performed By: #### 4 6932 ####[facility] [address] [place] [address] [id number] RMHPOC Glucose [Mass/Vol] 176 mg/dL High [facility] Comment on above: Performed By: #### 4 6932 ####[facility] [address] [place] [address] [id number] RM[facility]OC Glucose [Mass/Vol] 161 mg/dL [address] Comment on above: Performed By: #### 4 6932 ####[facility] [address] [place] [address] [id number] RMHPOC RENAL FUNCTION PANELon 02-05 Albumin [Mass/Vol] 2.5 g/dL Low 3.2-5.[address] [facility] Comment on above: Order Comment: [facility] has implemented the eGFR calculation approach that does not have a coefficient for race that conforms to the NKF-ASN Task Force Recommendations. Performed By: #### 4 6449 ####[facility] [address] [place] [address] Glenn Gudino M.D. [id number] Anion gap [Moles/Vol] 12 mmol/L Normal 10-20 [facility] Comment on above: Order Comment: [facility] has implemented the eGFR calculation approach that does not have a coefficient for race that conforms to the NKF-ASN Task Force Recommendations. Performed By: #### 4 6449 ####[facility] [address] [place] [address] Glenn Gudino M.D. [id number] Calcium [Mass/Vol] 7.8 mg/dL Low 8.4-10.[address] [facility] Comment on above: Order Comment: [facility] has implemented the eGFR calculation approach that does not have a coefficient for race that conforms to the NKF-ASN Task Force Recommendations. Performed By: #### 4 6449 ####[facility] [address] [place], [place] [id number] Glenn Gudino M.D. [id number] Chloride [Moles/Vol] 97 mmol/L Low 98-108 [facility] Comment on above: Order Comment: [facility] has implemented the eGFR calculation approach that does not have a coefficient for race that conforms to the NKF-ASN Task Force Recommendations. Performed By: #### 4 6449 ####[facility] [address] [place] [address] Glenn Gudino M.D. [id number] Creatinine [Mass/Vol] 1.97 mg/dL High 0.60-1.10 [facility] Comment on above: Order Comment: [facility] has implemented the eGFR calculation approach that does not have a coefficient for race that conforms to the NKF-ASN Task Force Recommendations. Performed By: #### 4 6449 ####[facility] [address] [place], [place] [id number] Glenn Gudino M.D. [id number] EGFR 28 mL/min/1.73 m2 Low >=60 [facility] Comment on above: Order Comment: [facility] has implemented the eGFR calculation approach that does not have a coefficient for race that conforms to the NKF-ASN Task Force Recommendations. Result Comment: Joi mated GFR was calculated using the 2020 CKD-EPI creatinine equation. Performed By: #### 4 6449 ####[facility] [address] [place], [place] [id number] Glenn Gudino M.D. [id number] Glucose [Mass/Vol] 143 mg/dL High 65-[address] [facility] Comment on above: Order Comment: [facility] has implemented the eGFR calculation approach that does not have a coefficient for race that conforms to the NKF-ASN Task Force Recommendations. Performed By: #### 4 6449 ####[facility] [address] [place], [place] [id number] Glenn Gudino M.D. [id number] HCO3 (Bld) [Moles/Vol] 28 mmol/L Normal 21-32 [facility] Comment on above: Order Comment: [facility] has implemented the eGFR calculation approach that does not have a coefficient for race that conforms to the NKF-ASN Task Force Recommendations. Performed By: #### 4 6449 ####[facility] [address] [place] [address] Glenn Gudino M.D. [id number] Phosphate [Mass/Vol] 1.7 mg/dL Low 2.8-4.1 [facility] Comment on above: Order Comment: [facility] has implemented the eGFR calculation approach that does not have a coefficient for race that conforms to the NKF-ASN Task Force Recommendations. Performed By: #### 4 6449 ####[facility] [address] [place] [address] 110[address] Glenn Gudino M.D. [id number] Potassium [Moles/Vol] 3.5 mmol/L Normal 3.5-5.1 [facility] Comment on above: Order Comment: [facility] has implemented the eGFR calculation approach that does not have a coefficient for race that conforms to the NKF-ASN Task Force Recommendations. Performed By: #### 4 6449 ####[facility] [address] [place] [address] Glenn Gudino M.D. [id number] Sodium [Moles/Vol] 133 mmol/L Low 135-[address] [facility] Comment on above: Order Comment: [facility] has implemented the eGFR calculation approach that does not have a coefficient for race that conforms to the NKF-ASN Task Force Recommendations. Performed By: #### 4 6449 ####[facility] [address] [place], [place] [id number] Glenn Gudino M.D. [id number] Urea nitrogen [Mass/Vol] 26 mg/dL High 8-25 [facility] Comment on above: Order Comment: [facility] has implemented the eGFR calculation approach that does not have a coefficient for race that conforms to the NKF-ASN Task Force Recommendations. Performed By: #### 4 6449 ####[facility] [address] [place], [place] [id number] Glenn Gudino M.D. [id number] Urea nitrogen/Creatinine [Mass ratio] 13.2 mg/mg Normal 10.0-20.0 [facility] Comment on above: Order Comment: [facility] has implemented the eGFR calculation approach that does not have a coefficient for race that conforms to the NKF-ASN Task Force Recommendations. Performed By: #### 4 6449 ####[facility] [address] [place], [place] [id number] Glenn Gudino M.D. [id number] TYPE AND SCREENon 02-06-2024 TYPE AND SCREEN ABORH: O Positive AB SCREEN: Positive EXPIRATION DATE: 02/09/2024 23:59 EST Normal [facility] Comment on above: Performed By: #### 4 6619 ####[facility] [address] [place] [address] Nurys Oneill MD [id number] RMHTS XR CHEST PA/APon 02-06-2024 XR CHEST PA/AP Normal [facility] Comment on above: Order Comment: Injur y/Trauma or Illness?:Illness/OtherHow long have you had these symptoms (acute/chronic)?:UnknownReason for exam?:chest tube palcement, pneumothoraxHistory of cancer?:uSurgeries, chemotherapy, or radiation?:uType of Exam?:OngoingAdditional signs and symptoms?:chest tube palcement, pneumothorax CALCIUM, IONIZEDon CALCIUM IONIZED 4.6 mg/dL Normal 4.5-5.3 [facility] Comment on above: Order Comment: Serum , non-CRRT source. Performed By: #### 4 5190 ####[facility] [address] [place] [address] Glenn Gudino M.D. [id number] CBCon 02-05-2024 AUTO NRBC 0.0 % Normal [facility] Comment on above: Performed By: #### 4 [id number] ####[facility] [address] [place] [address] Glenn Gudino M.D. [id number] AUTO NRBC ABS COUNT 0.00 K/mcL Normal 0.00-0.00 [facility] Comment on above: Performed By: #### 4 [id number] ####[facility] [address] [place], [place] [id number] Glenn Gudino M.D. [id number] Erythrocyte distribution width (RBC) [Ratio] 18.2 % High 11.6-14.8 [facility] Comment on above: Performed By: #### 4 5218 ####[facility] [address] [place], [place] [id number] Glenn Gudino M.D. [id number] Hematocrit (Bld) [Volume fraction] 27.7 % Low 36.0-46.0 [facility] Comment on above: Performed By: #### 4 [id number] ####[facility] [address] [place], [place] [id number] Glenn Gudino M.D. [id number] Hemoglobin (Bld) [Mass/Vol] 8.7 g/dL Low 12.0-16.0 [facility] Comment on above: Performed By: #### 4 [id number] ####[facility] [address] [place] [address] Glenn Gudino M.D. [id number] MCH (RBC) [Entitic mass] 28.8 pg Normal 26.0-34.0 [facility] Comment on above: Performed By: #### 4 [id number] ####[facility] [address] [place] [address] Glenn Gudino M.D. [id number] MCV (RBC) [Entitic vol] 91.7 fL Normal 80.0-100.0 [facility] Comment on above: Performed By: #### 4 [id number] ####[facility] [address] [place], [place] [id number] Glenn Gudino M.D. [id number] MEAN CORPUSCULAR HEMOGLOBIN CONC 31.4 g/dL Normal 31.0-37.0 [facility] Comment on above: Performed By: #### 4 5218 ####[facility] [address] [place], [place] [id number] Glenn Gudino M.D. [id number] Platelet mean volume (Bld) [Entitic vol] 9.5 fL Normal 9.4-12.4 [facility] Comment on above: Performed By: #### 4 [id number] ####[facility] [address] [place], [place] [id number] Glenn Gudino M.D. [id number] Platelets (Bld) [#/Vol] 226 10*3/uL Normal 150-400 [facility] Comment on above: Performed By: #### 4 [id number] ####[facility] [address] [place], [place] [id number] Glenn Gudino M.D. [id number] RBC (Bld) [#/Vol] 3.02 10*6/uL Low 4.00-5.20 [facility] Comment on above: Performed By: #### 4 [id number] ####[facility] [address] [place] [address] Glenn Gudino M.D. [id number] WBC (Bld) [#/Vol] 15.07 10*3/uL High 4.50-11.00 [facility] Comment on above: Performed By: #### 4 [id number] ####[facility] [address] [place] [address] Glenn Gudnio M.D. [id number] COMPREHENSIVE METABOLIC PANE Magdaleno 02-05-2024 Albumin [Mass/Vol] 2.5 g/dL Low 3.2-5.[address] [facility] Comment on above: Order Comment: [facility] has implemented the eGFR calculation approach that does not have a coefficient for race that conforms to the NKF-ASN Task Force Recommendations. Performed By: #### 4 6126 ####[facility] [address] [place] [address] Glenn Gudino M.D. [id number] ALP [Catalytic activity/Vol] 50 U/L Normal 40-150 [facility] Comment on above: Order Comment: [facility] has implemented the eGFR calculation approach that does not have a coefficient for race that conforms to the NKF-ASN Task Force Recommendations. Performed By: #### 4 6126 ####[facility] [address] [place] [address] 59932 Glenn Gudino M.D. [id number] ALT [Catalytic activity/Vol] 7 U/L Normal 0-35 U/L [facility] Comment on above: Order Comment: [facility] has implemented the eGFR calculation approach that does not have a coefficient for race that conforms to the NKF-ASN Task Force Recommendations. Performed By: #### 4 6126 ####[facility] [address] [place] [address] Glenn Gudino M.D. [id number] Anion gap [Moles/Vol] 12 mmol/L Normal 10-20 [facility] Comment on above: Order Comment: [facility] has implemented the eGFR calculation approach that does not have a coefficient for race that conforms to the NKF-ASN Task Force Recommendations. Performed By: #### 4 6126 ####[facility] [address] [place] [address] Glenn Gudino M.D. [id number] AST [Catalytic activity/Vol] 23 U/L Normal 0-35 U/L [facility] Comment on above: Order Comment: [facility] has implemented the eGFR calculation approach that does not have a coefficient for race that conforms to the NKF-ASN Task Force Recommendations. Performed By: #### 4 6126 ####[facility] [address] [place] [address] Glenn Gudino M.D. [id number] Bilirubin [Mass/Vol] 0.4 mg/dL Normal 0.0-1.3 [facility] Comment on above: Order Comment: [facility] has implemented the eGFR calculation approach that does not have a coefficient for race that conforms to the NKF-ASN Task Force Recommendations. Performed By: #### 4 6126 ####[facility] [address] [place] [address]39[address] Glenn Gudino M.D. [id number] Calcium [Mass/Vol] 7.8 mg/dL Low 8.4-10.[address] [facility] Comment on above: Order Comment: [facility] has implemented the eGFR calculation approach that does not have a coefficient for race that conforms to the NKF-ASN Task Force Recommendations. Performed By: #### 4 6126 ####[facility] [address] [place] [address] Glenn Gudino M.D. [id number] Chloride [Moles/Vol] 96 mmol/L Low 98-108 [facility] Comment on above: Order Comment: [facility] has implemented the eGFR calculation approach that does not have a coefficient for race that conforms to the NKF-ASN Task Force Recommendations. Performed By: #### 4 6126 ####[facility] [address] [place], [place] [id number] Glenn Gudino M.D. [id number] Creatinine [Mass/Vol] 2.82 mg/dL High 0.60-1.10 [facility] Comment on above: Order Comment: [facility] has implemented the eGFR calculation approach that does not have a coefficient for race that conforms to the NKF-ASN Task Force Recommendations. Performed By: #### 4 6126 ####[facility] [address] [place], [place] [address] Glenn Gudino M.D. [id number] EGFR 19 mL/min/1.73 m2 Low >=60 [facility] Comment on above: Order Comment: [facility] has implemented the eGFR calculation approach that does not have a coefficient for race that conforms to the NKF-ASN Task Force Recommendations. Result Comment: Joi mated GFR was calculated using the 2020 CKD-EPI creatinine equation. Performed By: #### 4 6126 ####[facility] [address] [place], [place] [address] Glenn Gudino M.D. [id number] Glucose [Mass/Vol] 173 mg/dL High 65-[address] [facility] Comment on above: Order Comment: [facility] has implemented the eGFR calculation approach that does not have a coefficient for race that conforms to the NKF-ASN Task Force Recommendations. Performed By: #### 4 6126 ####[facility] [address] [place], [place] [id number] Glenn Gudino M.D. [id number] HCO3 (Bld) [Moles/Vol] 28 mmol/L Normal 21-32 [facility] Comment on above: Order Comment: [facility] has implemented the eGFR calculation approach that does not have a coefficient for race that conforms to the NKF-ASN Task Force Recommendations. Performed By: #### 4 6126 ####[facility] [address] [place], [place] [address] Glenn Gudino M.D. [id number] Potassium [Moles/Vol] 4.1 mmol/L Normal 3.5-5.1 [facility] Comment on above: Order Comment: [facility] has implemented the eGFR calculation approach that does not have a coefficient for race that conforms to the NKF-ASN Task Force Recommendations. Performed By: #### 4 6126 ####[facility] [address] [place], [place] [address] Glenn Gudino M.D. [id number] Protein [Mass/Vol] 5.1 g/dL Low 6.0-8.[address] [facility] Comment on above: Order Comment: [facility] has implemented the eGFR calculation approach that does not have a coefficient for race that conforms to the NKF-ASN Task Force Recommendations. Performed By: #### 4 6126 ####[facility] [address] [place], [place] [address] Glenn Gudino M.D. [id number] Sodium [Moles/Vol] 132 mmol/L Low 135-[address] [facility] Comment on above: Order Comment: [facility] has implemented the eGFR calculation approach that does not have a coefficient for race that conforms to the NKF-ASN Task Force Recommendations. Performed By: #### 4 6126 ####[facility] [address] [place], [place] [address] Glenn Gudino M.D. [id number] Urea nitrogen [Mass/Vol] 34 mg/dL High 8-25 [facility] Comment on above: Order Comment: [facility] has implemented the eGFR calculation approach that does not have a coefficient for race that conforms to the NKF-ASN Task Force Recommendations. Performed By: #### 4 6126 ####[facility] [address] [place], [place] [address] Glenn Gudino M.D. [id number] Urea nitrogen/Creatinine [Mass ratio] 12.1 mg/mg Normal 10.0-20.0 [facility] Comment on above: Order Comment: [facility] has implemented the eGFR calculation approach that does not have a coefficient for race that conforms to the NKF-ASN Task Force Recommendations. Performed By: #### 4 6126 ####[facility] [address] [place] [address] Glenn Gudino M.D. [id number] MAGNESIUM LEVELon 02-05-2024 Magnesium [Mass/Vol] 2.1 mg/dL Normal 1.6-2.4 [facility] Comment on above: Performed By: #### 4 6109 ####[facility] [address] [place] [address] Glenn Gudino M.D. [id number] PHOSPHORUSon 02-05-2024 Phosphate [Mass/Vol] 2.8 mg/dL Normal 2.8-4.1 [facility] Comment on above: Performed By: #### 4 6299 ####[facility] [address] [place] [address] Glenn Gudino M.D. [id number] [facility] Glucose [Mass/Vol] 143 mg/dL High 65-[address] [facility] Comment on above: Performed By: #### 4 1772 ####[facility] [address] [place] [address] [id number] RMHPOC Glucose [Mass/Vol] 186 mg/dL High 65-[address] [facility] Comment on above: Performed By: #### 4 1631 ####[facility] [address] [place] [address] [id number] RMHPOC Glucose [Mass/Vol] 97 mg/dL Normal [address] [place] [address] Comment on above: Performed By: #### 4 6932 ####[facility] [address] [place] [address] [id number] RMHPOC Glucose [Mass/Vol] 201 mg/dL High [address] [place] [address] Comment on above: Performed By: #### 4 6932 ####[facility] [address] [place] [address] [id number] RMHPOC Glucose [Mass/Vol] 193 mg/dL High [address] [place] [address] Comment on above: Performed By: #### 4 6932 ####[facility] [address] [place] [address] [id number] RMHPOC Glucose [Mass/Vol] 185 mg/dL High [address] [place] [address] Comment on above: Performed By: #### 4 6932 ####[facility] [address] [place] [address] [id number] RMHPOC Glucose [Mass/Vol] 172 mg/dL High [address] [place] [address] Comment on above: Performed By: #### 4 6932 ####[facility] [address] [place] [address] [id number] RMHPOC PREALBUMINon 02-05-2024 Prealbumin [Mass/Vol] 10.7 mg/dL Low 20.0-40.0 [facility] Comment on above: Performed By: #### 4 6355 ####[facility] [address] [place] [address] Glenn Gudino M.D. [id number] TRIGLYCERIDESon 02-05-2024 Triglyceride [Mass/Vol] 249 mg/dL High 30-150 [facility] Comment on above: Result Comment: [facility] on[facility] Cholesterol Education Program Guidelines: TriglycerideNormal: <150 mg/dLBorderline High: 150-199 mg/dLHigh: 200-499 mg/dLVery High: greater than or equal to 500 mg/dL Performed By: #### 4 6606 ####[facility] [address] [place] [address] 745[address] Glenn Gudino M.D. [id number] XR CHEST PA/APon 02-05-2024 XR CHEST PA/AP Normal [facility] Comment on above: Order Comment: Injur y/Trauma or Illness?:Illness/OtherHow long have you had these symptoms (acute/chronic)?:UnknownReason for exam?:chest tube palcement, pneumothoraxHistory of cancer?:uSurgeries, chemotherapy, or radiation?:uType of Exam?:InitialAdditional signs and symptoms?:. CALCIUM, IONIZEDon CALCIUM IONIZED 4.6 mg/dL Normal 4.5-5.3 [facility] Comment on above: Order Comment: Serum , non-CRRT source. Performed By: #### 4 5190 ####[facility] [address] [place], [place] [id number] Glenn Gudino M.D. [id number] CBCon 02-04-2024 AUTO NRBC 0.0 % Normal [facility] Comment on above: Performed By: #### 4 [id number] ####[facility] [address] [place], [place] [id number] Glenn Gudino M.D. [id number] AUTO NRBC ABS COUNT 0.00 K/mcL Normal 0.00-0.00 [facility] Comment on above: Performed By: #### 4 [id number] ####[facility] [address] [place] [address] Glenn Gudino M.D. [id number] Erythrocyte distribution width (RBC) [Ratio] 18.1 % High 11.6-14.8 [facility] Comment on above: Performed By: #### 4 [id number] ####[facility] [address] [place], [place] [id number] Glenn Gudino M.D. [id number] Hematocrit (Bld) [Volume fraction] 27.1 % Low 36.0-46.0 [facility] Comment on above: Performed By: #### 4 [id number] ####[facility] [address] [place] [address] Glenn Gudino M.D. [id number] Hemoglobin (Bld) [Mass/Vol] 8.5 g/dL Low 12.0-16.0 [facility] Comment on above: Performed By: #### 4 [id number] ####[facility] [address] [place] [address] Glenn Gudino M.D. [id number] MCH (RBC) [Entitic mass] 28.6 pg Normal 26.0-34.0 [facility] Comment on above: Performed By: #### 4 [id number] ####[facility] [address] [place] [address] Glenn Gudino M.D. [id number] MCV (RBC) [Entitic vol] 91.2 fL Normal 80.0-100.0 [facility] Comment on above: Performed By: #### 4 [id number] ####[facility] [address] [place], [place] [id number] Glenn Gudino M.D. [id number] MEAN CORPUSCULAR HEMOGLOBIN CONC 31.4 g/dL Normal 31.0-37.0 [facility] Comment on above: Performed By: #### 4 5218 ####[facility] [address] [place], [place] [id number] Glenn Gudino M.D. [id number] Platelet mean volume (Bld) [Entitic vol] 10.0 fL Normal 9.4-12.4 [facility] Comment on above: Performed By: #### 4 [id number] ####[facility] [address] [place] [address] Glenn Gudino M.D. [id number] Platelets (Bld) [#/Vol] 215 10*3/uL Normal 150-400 [facility] Comment on above: Performed By: #### 4 [id number] ####[facility] [address] [place] [address] 69[address] Glenn Gudino M.D. [id number] RBC (Bld) [#/Vol] 2.97 10*6/uL Low 4.00-5.20 [facility] Comment on above: Performed By: #### 4 [id number] ####[facility] [address] [place] [address] Glenn Gudino M.D. [id number] WBC (Bld) [#/Vol] 13.18 10*3/uL High 4.50-11.00 [facility] Comment on above: Performed By: #### 4 [id number] ####[facility] [address] [place], [place] [id number] Glenn Gudino M.D. [id number] COMPREHENSIVE METABOLIC PANE Magdaleno 02-04-2024 ALP [Catalytic activity/Vol] 47 U/L Normal 40-150 [facility] Comment on above: Order Comment: [facility] has implemented the eGFR calculation approach that does not have a coefficient for race that conforms to the NKF-ASN Task Force Recommendations. Performed By: #### 4 6126 ####[facility] [address] [place] [address] 73611 Glenn Gudino M.D. [id number] ALT [Catalytic activity/Vol] 6 U/L Normal 0-35 U/L [facility] Comment on above: Order Comment: [facility] has implemented the eGFR calculation approach that does not have a coefficient for race that conforms to the NKF-ASN Task Force Recommendations. Performed By: #### 4 6126 ####[facility] [address] [place] [address] 50427 Glenn Gudino M.D. [id number] AST [Catalytic activity/Vol] 20 U/L Normal 0-35 U/L [facility] Comment on above: Order Comment: [facility] has implemented the eGFR calculation approach that does not have a coefficient for race that conforms to the NKF-ASN Task Force Recommendations. Performed By: #### 4 6126 ####[facility] [address] [place], [place] [id number] Glenn Gudino M.D. [id number] Bilirubin [Mass/Vol] 0.6 mg/dL Normal 0.0-1.3 [facility] Comment on above: Order Comment: [facility] has implemented the eGFR calculation approach that does not have a coefficient for race that conforms to the NKF-ASN Task Force Recommendations. Performed By: #### 4 6126 ####[facility] [address] [place], [place] [id number] Glenn Gudino M.D. [id number] Protein [Mass/Vol] 5.2 g/dL Low 6.0-8.[address] [facility] Comment on above: Order Comment: [facility] has implemented the eGFR calculation approach that does not have a coefficient for race that conforms to the NKF-ASN Task Force Recommendations. Performed By: #### 4 6126 ####[facility] [address] [place] [address] 13653 Glenn Gudino M.D. [id number] MAGNESIUM LEVELon 02-04-2024 Magnesium [Mass/Vol] 2.0 mg/dL Normal 1.6-2.4 [facility] Comment on above: Performed By: #### 4 6109 ####[facility] [address] [place] [address] 33346 Glenn Gudino M.D. [id number] [facility] Glucose [Mass/Vol] 136 mg/dL High 65-[address] [facility] Comment on above: Performed By: #### 4 6932 ####[facility] [address] [place] [address] [id number] [facility] Glucose [Mass/Vol] 181 mg/dL High -[address] [place] [address] Comment on above: Performed By: #### 4 6932 ####[facility] [address] [place] [address] [id number] [facility] Glucose [Mass/Vol] 178 mg/dL High [address] [place] [address] Comment on above: Performed By: #### 4 6932 ####[facility] [address] [place] [address] [id number] [facility] Glucose [Mass/Vol] 155 mg/dL High [address] [place] [address] Comment on above: Performed By: #### 4 6932 ####[facility] [address] [place] [address] [id number] [facility] Glucose [Mass/Vol] 145 mg/dL High [address] [place] [address] Comment on above: Performed By: #### 4 6932 ####[facility] [address] [place] [address] [id number] [facility] Glucose [Mass/Vol] 85 mg/dL Normal [address] [place] [address] Comment on above: Performed By: #### 4 6932 ####[facility] [address] [place] [address] [id number] [facility] PREALBUMINon 02-04-2024 Prealbumin [Mass/Vol] 8.8 mg/dL Low 20.0-40.0 [facility] Comment on above: Performed By: #### 4 6355 ####[facility] [address] [place] [address] Glenn Gudino M.D. [id number] RENAL FUNCTION PANELon 02-03 Albumin [Mass/Vol] 2.6 g/dL Low 3.2-5.[address] [facility] Comment on above: Order Comment: [facility] has implemented the eGFR calculation approach that does not have a coefficient for race that conforms to the NKF-ASN Task Force Recommendations. Performed By: #### 4 6449 ####[facility] [address] [place] [address] Glenn Gudino M.D. [id number] Performed By: #### 4 6126 ####[facility] [address] [place], [place] [id number] Glenn Gudino M.D. [id number] Anion gap [Moles/Vol] 15 mmol/L Normal 10-20 [facility] Comment on above: Order Comment: [facility] has implemented the eGFR calculation approach that does not have a coefficient for race that conforms to the NKF-ASN Task Force Recommendations. Performed By: #### 4 6449 ####[facility] [address] [place] [address] Glenn Gudino M.D. [id number] Performed By: #### 4 6126 ####[facility] [address] [place], [place] [id number] Glenn Gudino M.D. [id number] Calcium [Mass/Vol] 8.1 mg/dL Low 8.4-10.[address] [facility] Comment on above: Order Comment: [facility] has implemented the eGFR calculation approach that does not have a coefficient for race that conforms to the NKF-ASN Task Force Recommendations. Performed By: #### 4 6449 ####[facility] [address] [place] [address] Glenn Gudino M.D. [id number] Performed By: #### 4 6126 ####[facility] [address] [place], [place] [id number] Glenn Gudino M.D. [id number] Chloride [Moles/Vol] 95 mmol/L Low 98-108 [facility] Comment on above: Order Comment: [facility] has implemented the eGFR calculation approach that does not have a coefficient for race that conforms to the NKF-ASN Task Force Recommendations. Performed By: #### 4 6449 ####[facility] [address] [place], [place] [id number] Glenn Gudino M.D. [id number] Performed By: #### 4 6126 ####[facility] [address] [place], [place] [address] Glenn Gudino M.D. [id number] Creatinine [Mass/Vol] 2.14 mg/dL High 0.60-1.10 [facility] Comment on above: Order Comment: [facility] has implemented the eGFR calculation approach that does not have a coefficient for race that conforms to the NKF-ASN Task Force Recommendations. Performed By: #### 4 6449 ####[facility] [address] [place] [address] Glenn Gudnio M.D. [id number] Performed By: #### 4 6126 ####[facility] [address] [place], [place] [address] Glenn Gudino M.D. [id number] EGFR 26 mL/min/1.73 m2 Low >=60 [facility] Comment on above: Order Comment: [facility] has implemented the eGFR calculation approach that does not have a coefficient for race that conforms to the NKF-ASN Task Force Recommendations. Result Comment: Joi mated GFR was calculated using the 2020 CKD-EPI creatinine equation. Performed By: #### 4 6449 ####[facility] [address] [place], [place] [id number] Glenn Gudino M.D. [id number] Result Comment: Joi mated GFR was calculated using the 2020 CKD-EPI creatinine equation.Estimated GFR was calculated using the 2020 CKD-EPI creatinine equation. Performed By: #### 4 6126 ####[facility] [address] [place], [place] [id number] Glenn Gudino M.D. [id number] Glucose [Mass/Vol] 151 mg/dL High 65-[address] [facility] Comment on above: Order Comment: [facility] has implemented the eGFR calculation approach that does not have a coefficient for race that conforms to the NKF-ASN Task Force Recommendations. Performed By: #### 4 6449 ####[facility] [address] [place] [address] Glenn Gudino M.D. [id number] Performed By: #### 4 6126 ####[facility] [address] [place] [address] Glenn Gudino M.D. [id number] HCO3 (Bld) [Moles/Vol] 26 mmol/L Normal 21-32 [facility] Comment on above: Order Comment: [facility] has implemented the eGFR calculation approach that does not have a coefficient for race that conforms to the NKF-ASN Task Force Recommendations. Performed By: #### 4 6449 ####[facility] [address] [place] [address] Glenn Gudino M.D. [id number] Performed By: #### 4 6126 ####[facility] [address] [place], [place] [address] Glenn Gudino M.D. [id number] Phosphate [Mass/Vol] 3.4 mg/dL Normal 2.8-4.1 [facility] Comment on above: Order Comment: [facility] has implemented the eGFR calculation approach that does not have a coefficient for race that conforms to the NKF-ASN Task Force Recommendations. Performed By: #### 4 6449 ####[facility] [address] [place], [place] [address] Glenn Gudino M.D. [id number] Potassium [Moles/Vol] 4.1 mmol/L Normal 3.5-5.1 [facility] Comment on above: Order Comment: [facility] has implemented the eGFR calculation approach that does not have a coefficient for race that conforms to the NKF-ASN Task Force Recommendations. Performed By: #### 4 6449 ####[facility] [address] [place] [address] 15291 Glenn Gudino M.D. [id number] Performed By: #### 4 6126 ####[facility] [address] [place], [place] [address] Glenn Gudino M.D. [id number] Sodium [Moles/Vol] 132 mmol/L Low 135-[address] [facility] Comment on above: Order Comment: [facility] has implemented the eGFR calculation approach that does not have a coefficient for race that conforms to the NKF-ASN Task Force Recommendations. Performed By: #### 4 6449 ####[facility] [address] [place] [address] Glenn Gudino M.D. [id number] Performed By: #### 4 6126 ####[facility] [address] [place] [address] 664[address] Glenn Gudino M.D. [id number] Urea nitrogen [Mass/Vol] 22 mg/dL Normal 8-25 [facility] Comment on above: Order Comment: [facility] has implemented the eGFR calculation approach that does not have a coefficient for race that conforms to the NKF-ASN Task Force Recommendations. Performed By: #### 4 6449 ####[facility] [address] [place] [address] 73277 Glenn Gudino M.D. [id number] Performed By: #### 4 6126 ####[facility] [address] [place] [address] 34116 Glenn Gudino M.D. [id number] Urea nitrogen/Creatinine [Mass ratio] 10.3 mg/mg Normal 10.0-20.0 [facility] Comment on above: Order Comment: [facility] has implemented the eGFR calculation approach that does not have a coefficient for race that conforms to the NKF-ASN Task Force Recommendations. Performed By: #### 4 6449 ####[facility] [address] [place], [place] [id number] Glenn Gudino M.D. [id number] Performed By: #### 4 6126 ####[facility] [address] [place] [address] Glenn Gudino M.D. [id number] TRIGLYCERIDESon 02-04-2024 Triglyceride [Mass/Vol] 339 mg/dL High 30-150 [facility] Comment on above: Result Comment: [facility] onal Cholesterol Education Program Guidelines: TriglycerideNormal: <150 mg/dLBorderline High: 150-199 mg/dLHigh: 200-499 mg/dLVery High: greater than or equal to 500 mg/dL Performed By: #### 4 6606 ####[facility] [address] [place] [address] Glenn Gudino M.D. [id number] XR CHEST PA/APon 02-04-2024 XR CHEST PA/AP Normal [facility] Comment on above: Order Comment: Injur y/Trauma or Illness?:Illness/OtherHow long have you had these symptoms (acute/chronic)?:AcuteReason for exam?:chest tube palcement, pneumothoraxHistory of cancer?:uSurgeries, chemotherapy, or radiation?:uType of Exam?:OngoingAdditional signs and symptoms?:chest tube palcement, pneumothorax ANTIBODY IDENTIFICATION-Con 02-03-2024 ANTIBODY IDENTIFICATION-C Normal [facility] Comment on above: Performed By: #### 4 6427_Anti-C ####[facility] [address] [place] [address] Nurys Oneill MD [id number] [facility] CALCIUM, IONIZEDon CALCIUM IONIZED 4.5 mg/dL Normal 4.5-5.3 [facility] Comment on above: Order Comment: Serum , non-CRRT source. Performed By: #### 4 5190 ####[facility] [address] [place], [place] [id number] Glenn Gudino M.D. [id number] CBCon 02-03-2024 AUTO NRBC 0.0 % Normal [facility] Comment on above: Performed By: #### 4 5218 ####[facility] [address] [place] [address] Glenn Gudino M.D. [id number] AUTO NRBC ABS COUNT 0.00 K/mcL Normal 0.00-0.00 [facility] Comment on above: Performed By: #### 4 5218 ####[facility] [address] [place] [address] Glenn Gudino M.D. [id number] Erythrocyte distribution width (RBC) [Ratio] 17.8 % High 11.6-14.8 [facility] Comment on above: Performed By: #### 4 5218 ####[facility] [address] [place], [place] [address] Glenn Gudino M.D. [id number] Hematocrit (Bld) [Volume fraction] 29.4 % Low 36.0-46.0 [facility] Comment on above: Performed By: #### 4 5218 ####[facility] [address] [place], [place] [address] Glenn Gudino M.D. [id number] Hemoglobin (Bld) [Mass/Vol] 9.6 g/dL Low 12.0-16.0 [facility] Comment on above: Performed By: #### 4 5218 ####[facility] [address] [place], [place] [address] Glenn Gudino M.D. [id number] MCH (RBC) [Entitic mass] 29.0 pg Normal 26.0-34.0 [facility] Comment on above: Performed By: #### 4 5218 ####[facility] [address] [place] [address] 68149 Glenn Gudino M.D. [id number] MCV (RBC) [Entitic vol] 88.8 fL Normal 80.0-100.0 [facility] Comment on above: Performed By: #### 4 5218 ####[facility] [address] [place], [place] [id number] Glenn Gudino M.D. [id number] MEAN CORPUSCULAR HEMOGLOBIN CONC 32.7 g/dL Normal 31.0-37.0 [facility] Comment on above: Performed By: #### 4 5218 ####[facility] [address] [place], [place] [address] Glenn Gudino M.D. [id number] Platelet mean volume (Bld) [Entitic vol] 9.6 fL Normal 9.4-12.4 [facility] Comment on above: Performed By: #### 4 5218 ####[facility] [address] [place] [address] 15328 Glenn Gudino M.D. [id number] Platelets (Bld) [#/Vol] 150 10*3/uL Normal 150-400 [facility] Comment on above: Performed By: #### 4 5218 ####[facility] [address] [place] [address] 67064 Glenn Gudino M.D. [id number] RBC (Bld) [#/Vol] 3.31 10*6/uL Low 4.00-5.20 [facility] Comment on above: Performed By: #### 4 [id number] ####[facility] [address] [place] [address] 04363 Glenn Gudino M.D. [id number] WBC (Bld) [#/Vol] 13.45 10*3/uL High 4.50-11.00 [facility] Comment on above: Performed By: #### 4 5218 ####[facility] [address] [place] [address] Glenn Gudino M.D. [id number] CONSULTon 02-03-2024 CONSULT VIR consulted for no n tunneled CVC for short term TPN. Spoke to vascular surgery team. They'll plan to place an IJV line. AUTHENTICATED BY ROBERT DEL VALLE ON 02/03/2024 11:17:22 Normal [facility] MAGNESIUM LEVELon 02-03-2024 Magnesium [Mass/Vol] 2.1 mg/dL Normal 1.6-2.4 [facility] Comment on above: Performed By: #### 4 6109 ####[facility] [address] [place] [address] Glenn Gudino M.D. [id number] POC GLUCOSE - [facility] 024 Glucose [Mass/Vol] 95 mg/dL Normal 65-[address] [facility] Comment on above: Performed By: #### 4 6932 ####[facility] [address] [place] [address] [id number] [facility] Glucose [Mass/Vol] 102 mg/dL High 65-[address] [place] [address] Comment on above: Performed By: #### 4 6932 ####[facility] [address] [place] [address] [id number] [facility] Glucose [Mass/Vol] 113 mg/dL High 65-[address] [facility] Comment on above: Performed By: #### 4 6932 ####[facility] [address] [place] [address] [id number] [facility] Glucose [Mass/Vol] 132 mg/dL High 65-[address] [place] [address] Comment on above: Performed By: #### 4 6971 ####[facility] [address] [place] [address] [id number] [facility] Glucose [Mass/Vol] 145 mg/dL High 65-[address] [facility] Comment on above: Performed By: #### 4 6932 ####[facility] [address] [place] [address] [id number] [facility] Glucose [Mass/Vol] 131 mg/dL High 65-[address] [facility] Comment on above: Performed By: #### 4 6932 ####[facility] [address] [place] [address] [id number] [facility] RENAL FUNCTION PANELon 02-02 Albumin [Mass/Vol] 2.4 g/dL Low 3.2-5.[address] [facility] Comment on above: Order Comment: [facility] has implemented the eGFR calculation approach that does not have a coefficient for race that conforms to the NKF-ASN Task Force Recommendations. Performed By: #### 4 6449 ####[facility] [address] [place], [place] [address] Glenn Gudino M.D. [id number] Anion gap [Moles/Vol] 16 mmol/L Normal 10-20 [facility] Comment on above: Order Comment: [facility] has implemented the eGFR calculation approach that does not have a coefficient for race that conforms to the NKF-ASN Task Force Recommendations. Performed By: #### 4 6449 ####[facility] [address] [place] [address] Glenn Gudino M.D. [id number] Calcium [Mass/Vol] 7.9 mg/dL Low 8.4-10.[address] [facility] Comment on above: Order Comment: [facility] has implemented the eGFR calculation approach that does not have a coefficient for race that conforms to the NKF-ASN Task Force Recommendations. Performed By: #### 4 6449 ####[facility] [address] [place], [place] [address] Glenn Gudino M.D. [id number] Chloride [Moles/Vol] 97 mmol/L Low 98-108 [facility] Comment on above: Order Comment: [facility] has implemented the eGFR calculation approach that does not have a coefficient for race that conforms to the NKF-ASN Task Force Recommendations. Performed By: #### 4 6449 ####[facility] [address] [place] [address] 66506 Glnen Gudino M.D. [id number] Creatinine [Mass/Vol] 2.53 mg/dL High 0.60-1.10 [facility] Comment on above: Order Comment: [facility] has implemented the eGFR calculation approach that does not have a coefficient for race that conforms to the NKF-ASN Task Force Recommendations. Performed By: #### 4 6449 ####[facility] [address] [place] [address] 27990 Glenn Gudino M.D. [id number] EGFR 21 mL/min/1.73 m2 Low >=60 [facility] Comment on above: Order Comment: [facility] has implemented the eGFR calculation approach that does not have a coefficient for race that conforms to the NKF-ASN Task Force Recommendations. Result Comment: Joi mated GFR was calculated using the 2020 CKD-EPI creatinine equation. Performed By: #### 4 6449 ####[facility] [address] [place] [address] 99693 Glenn Gudino M.D. [id number] Glucose [Mass/Vol] 154 mg/dL High 65-[address] [facility] Comment on above: Order Comment: [facility] has implemented the eGFR calculation approach that does not have a coefficient for race that conforms to the NKF-ASN Task Force Recommendations. Performed By: #### 4 6449 ####[facility] [address] [place] [address] 93747 Glenn Gudino M.D. [id number] HCO3 (Bld) [Moles/Vol] 25 mmol/L Normal 21-32 [facility] Comment on above: Order Comment: [facility] has implemented the eGFR calculation approach that does not have a coefficient for race that conforms to the NKF-ASN Task Force Recommendations. Performed By: #### 4 6449 ####[facility] [address] [place] [address] 69206 Glenn Gudino M.D. [id number] Phosphate [Mass/Vol] 3.6 mg/dL Normal 2.8-4.1 [facility] Comment on above: Order Comment: [facility] has implemented the eGFR calculation approach that does not have a coefficient for race that conforms to the NKF-ASN Task Force Recommendations. Performed By: #### 4 6449 ####[facility] [address] [place] [address] 94189 Glenn Gudino M.D. [id number] Potassium [Moles/Vol] 5.8 mmol/L High 3.5-5.1 [facility] Comment on above: Order Comment: [facility] has implemented the eGFR calculation approach that does not have a coefficient for race that conforms to the NKF-ASN Task Force Recommendations. Performed By: #### 4 6449 ####[facility] [address] [place] [address] 89879 Glenn Gudino M.D. [id number] Sodium [Moles/Vol] 132 mmol/L Low 135-[address] [facility] Comment on above: Order Comment: [facility] has implemented the eGFR calculation approach that does not have a coefficient for race that conforms to the NKF-ASN Task Force Recommendations. Performed By: #### 4 6449 ####[facility] [address] [place] [address] 27323 Glenn Gudino M.D. [id number] Urea nitrogen [Mass/Vol] 30 mg/dL High 8-25 [facility] Comment on above: Order Comment: [facility] has implemented the eGFR calculation approach that does not have a coefficient for race that conforms to the NKF-ASN Task Force Recommendations. Performed By: #### 4 6449 ####[facility] [address] [place], [place] [address] Glenn Gudino M.D. [id number] Urea nitrogen/Creatinine [Mass ratio] 11.9 mg/mg Normal 10.0-20.0 [facility] Comment on above: Order Comment: [facility] has implemented the eGFR calculation approach that does not have a coefficient for race that conforms to the NKF-ASN Task Force Recommendations. Performed By: #### 4 6449 ####[facility] [address] [place] [address] Glenn Gudino M.D. [id number] TYPE AND SCREENon 02-03-2024 TYPE AND SCREEN Normal [facility] Comment on above: Performed By: #### 4 6619 ####[facility] [address] [place] [address] Nurys Oneill MD [id number] RMHT[facility] XR CHEST PA/APon 02-03-2024 XR CHEST PA/AP Normal [facility] Comment on above: Order Comment: Injur y/Trauma or Illness?:Illness/OtherHow long have you had these symptoms (acute/chronic)?:AcuteReason for exam?:attempted L subclavianHistory of cancer?:uSurgeries, chemotherapy, or radiation?:uType of Exam?:Subsequent/Follow-upAdditional signs and symptoms?:. Order Comment: Injur y/Trauma or Illness?:Illness/OtherHow long have you had these symptoms (acute/chronic)?:UnknownReason for exam?:chest tube palcement, pneumothorHistory of cancer?:uSurgeries, chemotherapy, or radiation?:uType of Exam?:InitialAdditional signs and symptoms?:. CALCIUM, IONIZEDon CALCIUM IONIZED 4.4 mg/dL Low 4.5-5.3 [facility] Comment on above: Performed By: #### 4 5190 ####[facility] [address] [place] [address] Glenn Gudino M.D. [id number] CBCon 02-02-2024 AUTO NRBC 0.0 % Normal [facility] Comment on above: Performed By: #### 4 5218 ####[facility] [address] [place], [place] [id number] Glenn Gudino M.D. [id number] AUTO NRBC ABS COUNT 0.00 K/mcL Normal 0.00-0.00 [facility] Comment on above: Performed By: #### 4 [id number] ####[facility] [address] [place] [address] Glenn Gudino M.D. [id number] Erythrocyte distribution width (RBC) [Ratio] 18.9 % High 11.6-14.8 [facility] Comment on above: Performed By: #### 4 5218 ####[facility] [facility] [address] [place] [address] Glenn Gudino M.D. [id number] Hematocrit (Bld) [Volume fraction] 25.0 % Low 36.0-46.0 [facility] Comment on above: Performed By: #### 4 [id number] ####[facility] [address] [place], [place] [id number] Glenn Gudino M.D. [id number] Hemoglobin (Bld) [Mass/Vol] 7.9 g/dL Low 12.0-16.0 [facility] Comment on above: Performed By: #### 4 [id number] ####[facility] [address] [place], [place] [id number] Glenn Gudino M.D. [id number] MCH (RBC) [Entitic mass] 28.6 pg Normal 26.0-34.0 [facility] Comment on above: Performed By: #### 4 4218 ####[facility] [address] [place], [place] [id number] Glenn Gudino M.D. [id number] MCV (RBC) [Entitic vol] 90.6 fL Normal 80.0-100.0 [facility] Comment on above: Performed By: #### 4 1618 ####[facility] [address] [place] [address] Glenn Gudino M.D. [id number] MEAN CORPUSCULAR HEMOGLOBIN CONC 31.6 g/dL Normal 31.0-37.0 [facility] Comment on above: Performed By: #### 4 [id number] ####[facility] [address] [place], [place] [id number] Glenn Gudino M.D. [id number] Platelet mean volume (Bld) [Entitic vol] 10.2 fL Normal 9.4-12.4 [facility] Comment on above: Performed By: #### 4 [id number] ####[facility] [address] [place], [place] [id number] Glenn Gudino M.D. [id number] Platelets (Bld) [#/Vol] 171 10*3/uL Normal 150-400 [facility] Comment on above: Performed By: #### 4 [id number] ####[facility] [address] [place] [address] Glenn Gudino M.D. [id number] RBC (Bld) [#/Vol] 2.76 10*6/uL Low 4.00-5.20 [facility] Comment on above: Performed By: #### 4 [id number] ####[facility] [address] [place], [place] [id number] Glenn Gudino M.D. [id number] WBC (Bld) [#/Vol] 12.32 10*3/uL High 4.50-11.00 [facility] Comment on above: Performed By: #### 4 [id number] ####[facility] [address] [place] [address] Glenn Gudino M.D. [id number] AUTO NRBC 0.0 % Normal [facility] Comment on above: Performed By: #### 4 [id number] ####[facility] [address] [place], [place] [id number] Glenn Gudino M.D. [id number] AUTO NRBC ABS COUNT 0.00 K/mcL Normal 0.00-0.00 [facility] Comment on above: Performed By: #### 4 [id number] ####[facility] [address] [place] [address] Glenn Gudino M.D. [id number] Erythrocyte distribution width (RBC) [Ratio] 19.0 % High 11.6-14.8 [facility] Comment on above: Performed By: #### 4 [id number] ####[facility] [address] [place] [address] Glenn Gudino M.D. [id number] Hematocrit (Bld) [Volume fraction] 23.5 % Low 36.0-46.0 [facility] Comment on above: Performed By: #### 4 4818 ####[facility] [address] [place] [address] Glenn Gudino M.D. [id number] Hemoglobin (Bld) [Mass/Vol] 7.4 g/dL Low 12.0-16.0 [facility] Comment on above: Result Comment: Zuleima pheral smear reviewed manually Performed By: #### 4 [id number] ####[facility] [address] [place] [address] Glenn Gudino M.D. [id number] MCH (RBC) [Entitic mass] 27.9 pg Normal 26.0-34.0 [facility] Comment on above: Performed By: #### 4 2318 ####[facility] [address] [place], [place] [id number] Glenn Gudino M.D. [id number] MCV (RBC) [Entitic vol] 88.7 fL Normal 80.0-100.0 [facility] Comment on above: Performed By: #### 4 1218 ####[facility] [address] [place] [address] Glenn Gudino M.D. [id number] MEAN CORPUSCULAR HEMOGLOBIN CONC 31.5 g/dL Normal 31.0-37.0 [facility] Comment on above: Performed By: #### 4 [id number] ####[facility] [address] [place] [address] Glenn Gudino M.D. [id number] Platelet mean volume (Bld) [Entitic vol] 10.5 fL Normal 9.4-12.4 [facility] Comment on above: Performed By: #### 4 [id number] ####[facility] [address] [place] [address] Glenn Gudino M.D. [id number] Platelets (Bld) [#/Vol] 138 10*3/uL Low 150-400 [facility] Comment on above: Performed By: #### 4 [id number] ####[facility] [address] [place] [address] Glenn Gudino M.D. [id number] RBC (Bld) [#/Vol] 2.65 10*6/uL Low 4.00-5.20 [facility] Comment on above: Performed By: #### 4 5218 ####[facility] [address] [place] [address]47[address] Glenn Gudino M.D. [id number] WBC (Bld) [#/Vol] 9.43 10*3/uL Normal 4.50-11.00 [facility] Comment on above: Performed By: #### 4 5218 ####[facility] [address] [place] [address]281 Glenn Gudino M.D. [id number] CONSULTon 02-02-2024 CONSULT Normal [facility] CONSULT Normal [facility] CONSULT Normal [facility] CONSULT Normal [facility] CT ANGIOGRAM ABDOMEN PELVISo n 02-02-2024 CT ANGIOGRAM ABDOMEN PELVIS Normal [facility] Comment on above: Order Comment: Injur y/Trauma or Illness?:Illness/OtherHow long have you had these symptoms (acute/chronic)?:AcuteReason for exam?:hemoperitoneum on non con scan, recent RP open AAA repair/EVAR explantType of Exam?:InitialAdditional signs and symptoms?:na CT CHEST ABDOMEN PELVIS WITH OUT CONTRASTon 02-02-2024 CT CHEST ABDOMEN PELVIS WITHOUT CONTRAST Normal [facility] Comment on above: Order Comment: Injur [...] 02-02-2024 Magnesium [Mass/Vol] 2.1 mg/dL Normal 1.6-2.4 [facility] Comment on above: Performed By: #### 4 6109 ####[facility] [address] [place] [address] Glenn Gudino M.D. [id number] POC GLUCOSE - Yoanna 024 Glucose [Mass/Vol] 114 mg/dL High [address] [place] [address] Comment on above: Performed By: #### 4 6932 ####[facility] [address] [place] [address] [id number] [facility] Glucose [Mass/Vol] 110 mg/dL High [address] [place] [address] Comment on above: Performed By: #### 4 6912 ####[facility] [address] [place] [address] [id number] [facility] Glucose [Mass/Vol] 113 mg/dL High 65-[address] [facility] Comment on above: Performed By: #### 4 6932 ####[facility] [address] [place] [address] [id number] [facility] Glucose [Mass/Vol] 128 mg/dL High 65-[address] [facility] Comment on above: Performed By: #### 4 6932 ####[facility] [address] [place] [address] [id number] [facility] Glucose [Mass/Vol] 173 mg/dL High 65-[address] [facility] Comment on above: Performed By: #### 4 6932 ####[facility] [address] [place] [address] [id number] [facility] Glucose [Mass/Vol] 82 mg/dL Normal 65-[address] [facility] Comment on above: Performed By: #### 4 6932 ####[facility] [address] [place] [address] [id number] [facility] RENAL FUNCTION PANELon 02-01 Albumin [Mass/Vol] 2.3 g/dL Low 3.2-5.[address] [facility] Comment on above: Order Comment: [facility] has implemented the eGFR calculation approach that does not have a coefficient for race that conforms to the NKF-ASN Task Force Recommendations. Performed By: #### 4 6449 ####[facility] [address] [place] [address] Glenn Gudino M.D. [id number] Anion gap [Moles/Vol] 14 mmol/L Normal 10-20 [facility] Comment on above: Order Comment: [facility] has implemented the eGFR calculation approach that does not have a coefficient for race that conforms to the NKF-ASN Task Force Recommendations. Performed By: #### 4 6449 ####[facility] [address] [place] [address] Glenn Gudino M.D. [id number] Calcium [Mass/Vol] 7.5 mg/dL Low 8.4-10.[address] [facility] Comment on above: Order Comment: [facility] has implemented the eGFR calculation approach that does not have a coefficient for race that conforms to the NKF-ASN Task Force Recommendations. Performed By: #### 4 6449 ####[facility] [address] [place] [address] 21665 Glenn Gudino M.D. [id number] Chloride [Moles/Vol] 95 mmol/L Low 98-108 [facility] Comment on above: Order Comment: [facility] has implemented the eGFR calculation approach that does not have a coefficient for race that conforms to the NKF-ASN Task Force Recommendations. Performed By: #### 4 6449 ####[facility] [address] [place], [place] [id number] Glenn Gudino M.D. [id number] Creatinine [Mass/Vol] 1.98 mg/dL High 0.60-1.10 [facility] Comment on above: Order Comment: [facility] has implemented the eGFR calculation approach that does not have a coefficient for race that conforms to the NKF-ASN Task Force Recommendations. Performed By: #### 4 6449 ####[facility] [address] [place] [address] Glenn Gudino M.D. [id number] EGFR 28 mL/min/1.73 m2 Low >=60 [facility] Comment on above: Order Comment: [facility] has implemented the eGFR calculation approach that does not have a coefficient for race that conforms to the NKF-ASN Task Force Recommendations. Result Comment: Joi mated GFR was calculated using the 2020 CKD-EPI creatinine equation. Performed By: #### 4 6449 ####[facility] [address] [place] [address] 20844 Glenn Gudino M.D. [id number] Glucose [Mass/Vol] 157 mg/dL High 65-[address] [facility] Comment on above: Order Comment: [facility] has implemented the eGFR calculation approach that does not have a coefficient for race that conforms to the NKF-ASN Task Force Recommendations. Performed By: #### 4 6449 ####[facility] [address] [place] [address] 57524 Glenn Gudino M.D. [id number] HCO3 (Bld) [Moles/Vol] 26 mmol/L Normal 21-32 [facility] Comment on above: Order Comment: [facility] has implemented the eGFR calculation approach that does not have a coefficient for race that conforms to the NKF-ASN Task Force Recommendations. Performed By: #### 4 6449 ####[facility] [address] [place] [address] 23394 Glenn Gudino M.D. [id number] Phosphate [Mass/Vol] 2.3 mg/dL Low 2.8-4.1 [facility] Comment on above: Order Comment: [facility] has implemented the eGFR calculation approach that does not have a coefficient for race that conforms to the NKF-ASN Task Force Recommendations. Performed By: #### 4 6449 ####[facility] [address] [place] [address] 54647 Glenn Gudino M.D. [id number] Potassium [Moles/Vol] 4.7 mmol/L Normal 3.5-5.1 [facility] Comment on above: Order Comment: [facility] has implemented the eGFR calculation approach that does not have a coefficient for race that conforms to the NKF-ASN Task Force Recommendations. Performed By: #### 4 6449 ####[facility] [address] [place] [address] 60429 Glenn Gudino M.D. [id number] Sodium [Moles/Vol] 130 mmol/L Low 135-[address] [facility] Comment on above: Order Comment: [facility] has implemented the eGFR calculation approach that does not have a coefficient for race that conforms to the NKF-ASN Task Force Recommendations. Performed By: #### 4 6449 ####[facility] [address] [place] [address] 6[address] Glenn Gudino M.D. [id number] Urea nitrogen [Mass/Vol] 23 mg/dL Normal 8-25 [facility] Comment on above: Order Comment: [facility] has implemented the eGFR calculation approach that does not have a coefficient for race that conforms to the NKF-ASN Task Force Recommendations. Performed By: #### 4 6449 ####[facility] [address] [place] [address] 6[address]67 Glenn Gudino M.D. [id number] Urea nitrogen/Creatinine [Mass ratio] 11.6 mg/mg Normal 10.0-20.0 [facility] Comment on above: Order Comment: [facility] has implemented the eGFR calculation approach that does not have a coefficient for race that conforms to the NKF-ASN Task Force Recommendations. Performed By: #### 4 6449 ####[facility] [address] [place] [address] 32991 Glenn Gudino M.D. [id number] XR CHEST PA/APon 02-02-2024 XR CHEST PA/AP Normal [facility] Comment on above: Order Comment: Injur y/Trauma or Illness?:Illness/OtherHow long have you had these symptoms (acute/chronic)?:AcuteReason for exam?:chest tube palcementHistory of cancer?:uSurgeries, chemotherapy, or radiation?:uType of Exam?:UnknownAdditional signs and symptoms?:pneumothorax CALCIUM, IONIZEDon CALCIUM IONIZED 4.4 mg/dL Low 4.5-5.3 [facility] Comment on above: Order Comment: Serum , non-CRRT source. Performed By: #### 4 5190 ####[facility] [address] [place] [address]6638 Glenn Gudino M.D. [id number] CBCon 02-01-2024 AUTO NRBC 0.0 % Normal [facility] Comment on above: Performed By: #### 4 [id number] ####[facility] [address] [place], [place] [id number] Glenn Gudino M.D. [id number] AUTO NRBC ABS COUNT 0.00 K/mcL Normal 0.00-0.00 [facility] Comment on above: Performed By: #### 4 5218 ####[facility] [address] [place] [address] Glenn Gudino M.D. [id number] Erythrocyte distribution width (RBC) [Ratio] 19.1 % High 11.6-14.8 [facility] Comment on above: Performed By: #### 4 5218 ####[facility] [address] [place] [address] Glenn Gudino M.D. [id number] Hematocrit (Bld) [Volume fraction] 25.8 % Low 36.0-46.0 [facility] Comment on above: Performed By: #### 4 5218 ####[facility] [address] [place], [place] [address] Glenn Gudino M.D. [id number] Hemoglobin (Bld) [Mass/Vol] 8.4 g/dL Low 12.0-16.0 [facility] Comment on above: Performed By: #### 4 5218 ####[facility] [address] [place], [place] [id number] Glenn Gudino M.D. [id number] MCH (RBC) [Entitic mass] 28.7 pg Normal 26.0-34.0 [facility] Comment on above: Performed By: #### 4 [id number] ####[facility] [address] [place], [place] [id number] Glenn Gudino M.D. [id number] MCV (RBC) [Entitic vol] 88.1 fL Normal 80.0-100.0 [facility] Comment on above: Performed By: #### 4 5218 ####[facility] [address] [place] [address] 70748 Glenn Gudino M.D. [id number] MEAN CORPUSCULAR HEMOGLOBIN CONC 32.6 g/dL Normal 31.0-37.0 [facility] Comment on above: Performed By: #### 4 5218 ####[facility] [address] [place] [address] Glenn Gudino M.D. [id number] Platelet mean volume (Bld) [Entitic vol] 10.2 fL Normal 9.4-12.4 [facility] Comment on above: Performed By: #### 4 5218 ####[facility] [address] [place] [address] Glenn Gudino M.D. [id number] Platelets (Bld) [#/Vol] 109 10*3/uL Low 150-400 [facility] Comment on above: Performed By: #### 4 5218 ####[facility] [address] [place], [place] [id number] Glenn Gudino M.D. [id number] RBC (Bld) [#/Vol] 2.93 10*6/uL Low 4.00-5.20 [facility] Comment on above: Performed By: #### 4 5218 ####[facility] [address] [place], [place] [id number] Glenn Gudino M.D. [id number] WBC (Bld) [#/Vol] 10.44 10*3/uL Normal 4.50-11.00 [facility] Comment on above: Performed By: #### 4 5218 ####[facility] [address] [place], [place] [id number] lGenn Gudino M.D. [id number] H AND Ney 02-01-2024 H AND P Normal [facility] MAGNESIUM LEVELon 02-01-2024 Magnesium [Mass/Vol] 2.3 mg/dL Normal 1.6-2.4 [facility] Comment on above: Performed By: #### 4 6109 ####[facility] [address] [place] [address] Glenn Gudino M.D. [id number] POC GLUCOSE - [facility] 024 Glucose [Mass/Vol] 151 mg/dL High -[address] [place] [address] Comment on above: Performed By: #### 4 6932 ####[facility] [address] [place] [address] [id number] [facility] Glucose [Mass/Vol] 92 mg/dL Normal -[address] [place] [address] Comment on above: Performed By: #### 4 6975 ####[facility] [address] [place] [address] [id number] [facility] Glucose [Mass/Vol] 58 mg/dL Low [address] [place] [address] Comment on above: Performed By: #### 4 6709 ####[facility] [address] [place] [address] [id number] [facility] Glucose [Mass/Vol] 97 mg/dL Normal [address] [place] [address] Comment on above: Performed By: #### 4 5040 ####[facility] [address] [place] [address] [id number] [facility] Glucose [Mass/Vol] 62 mg/dL Low -[address] [place] [address] Comment on above: Performed By: #### 4 6283 ####[facility] [address] [place] [address] [id number] [facility] Glucose [Mass/Vol] 110 mg/dL High [address] [place] [address] Comment on above: Performed By: #### 4 4079 ####[facility] [address] [place] [address] [id number] [facility] Glucose [Mass/Vol] 117 mg/dL High [address] [place] [address] Comment on above: Performed By: #### 4 6932 ####[facility] [address] [place] [address] [id number] [facility] Glucose [Mass/Vol] 166 mg/dL High 65- [facility] Comment on above: Performed By: #### 4 6932 ####[facility] [address] [place] [address] [id number] [facility] Glucose [Mass/Vol] 150 mg/dL High 65- [facility] Comment on above: Performed By: #### 4 6932 ####[facility] [address] [place] [address] [id number] [facility] RENAL FUNCTION PANELon 01-31 Albumin [Mass/Vol] 1.8 g/dL Low 3.2-5.[address] [facility] Comment on above: Order Comment: [facility] has implemented the eGFR calculation approach that does not have a coefficient for race that conforms to the NKF-ASN Task Force Recommendations. Performed By: #### 4 6449 ####[facility] [address] [place] [address] Glenn Gudino M.D. [id number] Anion gap [Moles/Vol] 11 mmol/L Normal 10-20 [facility] Comment on above: Order Comment: [facility] has implemented the eGFR calculation approach that does not have a coefficient for race that conforms to the NKF-ASN Task Force Recommendations. Performed By: #### 4 6449 ####[facility] [address] [place] [address] Glenn Gudino M.D. [id number] Calcium [Mass/Vol] 7.3 mg/dL Low 8.4-10.[address] [facility] Comment on above: Order Comment: [facility] has implemented the eGFR calculation approach that does not have a coefficient for race that conforms to the NKF-ASN Task Force Recommendations. Performed By: #### 4 6449 ####[facility] [address] [place] [address] 25192 Glenn Gudino M.D. [id number] Chloride [Moles/Vol] 100 mmol/L Normal 98-108 [facility] Comment on above: Order Comment: [facility] has implemented the eGFR calculation approach that does not have a coefficient for race that conforms to the NKF-ASN Task Force Recommendations. Performed By: #### 4 6449 ####[facility] [address] [place] [address] Glenn Gudino M.D. [id number] Creatinine [Mass/Vol] 2.21 mg/dL High 0.60-1.10 [facility] Comment on above: Order Comment: [facility] has implemented the eGFR calculation approach that does not have a coefficient for race that conforms to the NKF-ASN Task Force Recommendations. Performed By: #### 4 6449 ####[facility] [address] [place], [place] [id number] Glenn Gudino M.D. [id number] EGFR 25 mL/min/1.73 m2 Low >=60 [facility] Comment on above: Order Comment: [facility] has implemented the eGFR calculation approach that does not have a coefficient for race that conforms to the NKF-ASN Task Force Recommendations. Result Comment: Joi mated GFR was calculated using the 2020 CKD-EPI creatinine equation. Performed By: #### 4 6449 ####[facility] [address] [place], [place] [address] Glenn Gudino M.D. [id number] Glucose [Mass/Vol] 185 mg/dL High 65-[address] [facility] Comment on above: Order Comment: [facility] has implemented the eGFR calculation approach that does not have a coefficient for race that conforms to the NKF-ASN Task Force Recommendations. Performed By: #### 4 6449 ####[facility] [address] [place], [place] [address] Glenn Gudino M.D. [id number] HCO3 (Bld) [Moles/Vol] 27 mmol/L Normal 21-32 [facility] Comment on above: Order Comment: [facility] has implemented the eGFR calculation approach that does not have a coefficient for race that conforms to the NKF-ASN Task Force Recommendations. Performed By: #### 4 6449 ####[facility] [address] [place], [place] [address] Glenn Gudino M.D. [id number] Phosphate [Mass/Vol] 2.7 mg/dL Low 2.8-4.1 [facility] Comment on above: Order Comment: [facility] has implemented the eGFR calculation approach that does not have a coefficient for race that conforms to the NKF-ASN Task Force Recommendations. Performed By: #### 4 6449 ####[facility] [address] [place], [place] [address] Glenn Gudino M.D. [id number] Potassium [Moles/Vol] 5.3 mmol/L High 3.5-5.1 [facility] Comment on above: Order Comment: [facility] has implemented the eGFR calculation approach that does not have a coefficient for race that conforms to the NKF-ASN Task Force Recommendations. Result Comment: Slig htly Hemolyzed Performed By: #### 4 6449 ####[facility] [address] [place], [place] [address] Glenn Gudino M.D. [id number] Sodium [Moles/Vol] 133 mmol/L Low 135-[address] [facility] Comment on above: Order Comment: [facility] has implemented the eGFR calculation approach that does not have a coefficient for race that conforms to the NKF-ASN Task Force Recommendations. Performed By: #### 4 6449 ####[facility] [address] [place], [place] [address] Glenn Gudino M.D. [id number] Urea nitrogen [Mass/Vol] 33 mg/dL High 8-25 [facility] Comment on above: Order Comment: [facility] has implemented the eGFR calculation approach that does not have a coefficient for race that conforms to the NKF-ASN Task Force Recommendations. Performed By: #### 4 6449 ####[facility] [address] [place] [address] Glenn Gudino M.D. [id number] Urea nitrogen/Creatinine [Mass ratio] 14.9 mg/mg Normal 10.0-20.0 [facility] Comment on above: Order Comment: [facility] has implemented the eGFR calculation approach that does not have a coefficient for race that conforms to the NKF-ASN Task Force Recommendations. Performed By: #### 4 6449 ####[facility] [address] [place] [address] Glenn Gudino M.D. [id number] XR CHEST PA/APon 02-01-2024 XR CHEST PA/AP [facility] Comment on above: Order Comment: Injur [...] ANTIBODY IDENTIFICATION-INCo n 01-31-2024 ANTIBODY IDENTIFICATION-INC Normal [facility] Comment on above: Performed By: #### 4 6427_Inconclusive ####[facility] [address] [place] [address] Nurys Oneill MD [id number] RMHTS APTT HEPARIN COVERAGEon 09-0 aPTT Coag (Bld) [Time] 40 s High 23-34 [facility] Comment on above: Order Comment: Thera peutic range for APTT's is 68 - 104 seconds Result Comment: Resu lts checked. Performed By: #### 4 6848 ####[facility] [address] [place], [place] [id number] Glenn Gudino M.D. [id number] aPTT Coag (Bld) [Time] 65 s High 23-34 [facility] Comment on above: Order Comment: Thera peutic range for APTT's is 68 - 104 secondsResults checked. Performed By: #### 4 6848 ####[facility] [address] [place], [place] [id number] Glenn Gudino M.D. [id number] BASIC METABOLIC PANELon 09-0 Anion gap [Moles/Vol] 12 mmol/L Normal 10-20 [facility] Comment on above: Order Comment: [facility] has implemented the eGFR calculation approach that does not have a coefficient for race that conforms to the NKF-ASN Task Force Recommendations. Performed By: #### 4 6124 ####[facility] [address] [place], [place] [id number] Glenn Gudino M.D. [id number] Calcium [Mass/Vol] 8.0 mg/dL Low 8.4-10.[address] [facility] Comment on above: Order Comment: [facility] has implemented the eGFR calculation approach that does not have a coefficient for race that conforms to the NKF-ASN Task Force Recommendations. Performed By: #### 4 6124 ####[facility] [address] [place] [address] Glenn Gudino M.D. [id number] Chloride [Moles/Vol] 99 mmol/L Normal 98-108 [facility] Comment on above: Order Comment: [facility] has implemented the eGFR calculation approach that does not have a coefficient for race that conforms to the NKF-ASN Task Force Recommendations. Performed By: #### 4 6124 ####[facility] [address] [place] [address] Glenn Gudino M.D. [id number] Creatinine [Mass/Vol] 1.47 mg/dL High 0.60-1.10 [facility] Comment on above: Order Comment: [facility] has implemented the eGFR calculation approach that does not have a coefficient for race that conforms to the NKF-ASN Task Force Recommendations. Performed By: #### 4 6124 ####[facility] [address] [place] [address] Glenn Gudino M.D. [id number] EGFR 40 mL/min/1.73 m2 Low >=60 [facility] Comment on above: Order Comment: [facility] has implemented the eGFR calculation approach that does not have a coefficient for race that conforms to the NKF-ASN Task Force Recommendations. Result Comment: Joi mated GFR was calculated using the 2020 CKD-EPI creatinine equation. Performed By: #### 4 6124 ####[facility] [address] [place] [address] Glenn Gudino M.D. [id number] Glucose [Mass/Vol] 165 mg/dL High 65-[address] [facility] Comment on above: Order Comment: [facility] has implemented the eGFR calculation approach that does not have a coefficient for race that conforms to the NKF-ASN Task Force Recommendations. Performed By: #### 4 6124 ####[facility] [address] [place] [address] 29[address] Glenn Gudino M.D. [id number] HCO3 (Bld) [Moles/Vol] 28 mmol/L Normal 21-32 [facility] Comment on above: Order Comment: [facility] has implemented the eGFR calculation approach that does not have a coefficient for race that conforms to the NKF-ASN Task Force Recommendations. Performed By: #### 4 6145 ####[facility] [address] [place] [address] 77[address] Glenn Gudino M.D. [id number] Potassium [Moles/Vol] 4.5 mmol/L Normal 3.5-5.1 [facility] Comment on above: Order Comment: [facility] has implemented the eGFR calculation approach that does not have a coefficient for race that conforms to the NKF-ASN Task Force Recommendations. Performed By: #### 4 6124 ####[facility] [address] [place], [place] [id number] Glenn Gudino M.D. [id number] Sodium [Moles/Vol] 134 mmol/L Low 135-[address] [facility] Comment on above: Order Comment: [facility] has implemented the eGFR calculation approach that does not have a coefficient for race that conforms to the NKF-ASN Task Force Recommendations. Performed By: #### 4 6124 ####[facility] [address] [place], [place] [id number] Glenn Gudino M.D. [id number] Urea nitrogen [Mass/Vol] 23 mg/dL Normal 8-25 [facility] Comment on above: Order Comment: [facility] has implemented the eGFR calculation approach that does not have a coefficient for race that conforms to the NKF-ASN Task Force Recommendations. Performed By: #### 4 6124 ####[facility] [address] [place] [address] Glenn Gudino M.D. [id number] Urea nitrogen/Creatinine [Mass ratio] 15.6 mg/mg Normal 10.0-20.0 [facility] Comment on above: Order Comment: [facility] has implemented the eGFR calculation approach that does not have a coefficient for race that conforms to the NKF-ASN Task Force Recommendations. Performed By: #### 4 6124 ####[facility] [address] [place] [address] Glenn Gudino M.D. [id number] CALCIUM, IONIZEDon CALCIUM IONIZED 4.9 mg/dL Normal 4.5-5.3 [facility] Comment on above: Performed By: #### 4 5190 ####[facility] [address] [place] [address] Glenn Gudino M.D. [id number] CALCIUM IONIZED 4.5 mg/dL Normal 4.5-5.3 [facility] Comment on above: Order Comment: Serum , non-CRRT source. Performed By: #### 4 5190 ####[facility] [address] [place] [address] Glenn Gudino M.D. [id number] CBCon 01-31-2024 AUTO NRBC 0.0 % Normal [facility] Comment on above: Performed By: #### 4 5218 ####[facility] [address] [place] [address] Glenn Gudino M.D. [id number] AUTO NRBC ABS COUNT 0.00 K/mcL Normal 0.00-0.00 [facility] Comment on above: Performed By: #### 4 5218 ####[facility] [address] [place], [place] [id number] Glenn Gudino M.D. [id number] Erythrocyte distribution width (RBC) [Ratio] 18.7 % High 11.6-14.8 [facility] Comment on above: Performed By: #### 4 5218 ####[facility] [address] [place], [place] [id number] Glenn Gudino M.D. [id number] Hematocrit (Bld) [Volume fraction] 26.9 % Low 36.0-46.0 [facility] Comment on above: Result Comment: Resu lts checked Performed By: #### 4 5218 ####[facility] [address] [place], [place] [id number] Glenn Gudino M.D. [id number] Hemoglobin (Bld) [Mass/Vol] 9.0 g/dL Low 12.0-16.0 [facility] Comment on above: Result Comment: Resu lts checked Performed By: #### 4 5218 ####[facility] [address] [place] [address] Glenn Gudino M.D. [id number] MCH (RBC) [Entitic mass] 28.6 pg Normal 26.0-34.0 [facility] Comment on above: Performed By: #### 4 5218 ####[facility] [address] [place] [address] Glenn Gudino M.D. [id number] MCV (RBC) [Entitic vol] 85.4 fL Normal 80.0-100.0 [facility] Comment on above: Result Comment: Resu lts checked Performed By: #### 4 5218 ####[facility] [address] [place] [address] Glenn Gudino M.D. [id number] MEAN CORPUSCULAR HEMOGLOBIN CONC 33.5 g/dL Normal 31.0-37.0 [facility] Comment on above: Performed By: #### 4 5218 ####[facility] [address] [place], [place] [address]Karma Gudino M.D. [id number] Platelet mean volume (Bld) [Entitic vol] 9.9 fL Normal 9.4-12.4 [facility] Comment on above: Performed By: #### 4 5218 ####[facility] [address] [place], [place] [id number] Glenn Gudino M.D. [id number] Platelets (Bld) [#/Vol] 103 10*3/uL Low 150-400 [facility] Comment on above: Performed By: #### 4 5218 ####[facility] [address] [place], [place] [address]Karma Gudino M.D. [id number] RBC (Bld) [#/Vol] 3.15 10*6/uL Low 4.00-5.20 [facility] Comment on above: Performed By: #### 4 5218 ####[facility] [address] [place], [place] [address] Glenn Gudino M.D. [id number] WBC (Bld) [#/Vol] 11.27 10*3/uL High 4.50-11.00 [facility] Comment on above: Performed By: #### 4 5218 ####[facility] [address] [place] [address] Glenn Gudino M.D. [id number] AUTO NRBC 0.0 % Normal [facility] Comment on above: Performed By: #### 4 5218 ####[facility] [address] [place] [address] Glenn Gudino M.D. [id number] AUTO NRBC ABS COUNT 0.00 K/mcL Normal 0.00-0.00 [facility] Comment on above: Performed By: #### 4 5218 ####[facility] [address] [place], [place] [address] Glenn Gudino M.D. [id number] Erythrocyte distribution width (RBC) [Ratio] 15.9 % High 11.6-14.8 [facility] Comment on above: Performed By: #### 4 5218 ####[facility] [address] [place], [place] [id number] Glenn Gudino M.D. [id number] Hematocrit (Bld) [Volume fraction] 19.9 % Low 36.0-46.0 [facility] Comment on above: Performed By: #### 4 5218 ####[facility] [address] [place], [place] [id number] Glenn Gudino M.D. [id number] Hemoglobin (Bld) [Mass/Vol] 6.4 g/dL Off scale low 12.0-16.0 [facility] Comment on above: Result Comment: Resu lts called and read back verified [email or web address] to [email or web address] at [id number] Performed By: #### 4 5218 ####[facility] [address] [place] [address] Glenn Gudino M.D. [id number] MCH (RBC) [Entitic mass] 30.2 pg Normal 26.0-34.0 [facility] Comment on above: Performed By: #### 4 5218 ####[facility] [address] [place] [address] Glenn Gudino M.D. [id number] MCV (RBC) [Entitic vol] 93.9 fL Normal 80.0-100.0 [facility] Comment on above: Performed By: #### 4 5218 ####[facility] [address] [place] [address] Glenn Gudino M.D. [id number] MEAN CORPUSCULAR HEMOGLOBIN CONC 32.2 g/dL Normal 31.0-37.0 [facility] Comment on above: Performed By: #### 4 5218 ####[facility] [address] [place], [place] [id number] Glenn Gudino M.D. [id number] Platelet mean volume (Bld) [Entitic vol] 10.7 fL Normal 9.4-12.4 [facility] Comment on above: Performed By: #### 4 5218 ####[facility] [address] [place] [address] Glenn Gudino M.D. [id number] Platelets (Bld) [#/Vol] 104 10*3/uL Low 150-400 [facility] Comment on above: Performed By: #### 4 5218 ####[facility] [address] [place], [place] [id number] Glenn Gudino M.D. [id number] RBC (Bld) [#/Vol] 2.12 10*6/uL Low 4.00-5.20 [facility] Comment on above: Performed By: #### 4 5218 ####[facility] [address] [place] [address] Glenn Gudino M.D. [id number] WBC (Bld) [#/Vol] 9.91 10*3/uL Normal 4.50-11.00 [facility] Comment on above: Performed By: #### 4 5218 ####[facility] [address] [place], [place] [id number] Glenn Gudino M.D. [id number] AUTO NRBC 0.0 % Normal [facility] Comment on above: Performed By: #### 4 5218 ####[facility] [address] [place] [address] Glenn Gudino M.D. [id number] AUTO NRBC ABS COUNT 0.00 K/mcL Normal 0.00-0.00 [facility] Comment on above: Performed By: #### 4 5218 ####[facility] [address] [place], [place] [id number] Glenn Gudino M.D. [id number] Erythrocyte distribution width (RBC) [Ratio] 16.0 % High 11.6-14.8 [facility] Comment on above: Performed By: #### 4 5218 ####[facility] [address] [place], [place] [id number] Glenn Gudino M.D. [id number] Hematocrit (Bld) [Volume fraction] 21.4 % Low 36.0-46.0 [facility] Comment on above: Performed By: #### 4 5218 ####[facility] [address] [place], [place] [address]Karma Gudino M.D. [id number] Hemoglobin (Bld) [Mass/Vol] 6.9 g/dL Off scale low 12.0-16.0 [facility] Comment on above: Result Comment: Resu lts called and read back verified [id number]. Performed By: #### 4 5218 ####[facility] [address] [place] [address] Glenn Gudino M.D. [id number] MCH (RBC) [Entitic mass] 30.0 pg Normal 26.0-34.0 [facility] Comment on above: Performed By: #### 4 5218 ####[facility] [address] [place] [address] Glenn Gudino M.D. [id number] MCV (RBC) [Entitic vol] 93.0 fL Normal 80.0-100.0 [facility] Comment on above: Performed By: #### 4 5218 ####[facility] [address] [place] [address] Glenn Gudino M.D. [id number] MEAN CORPUSCULAR HEMOGLOBIN CONC 32.2 g/dL Normal 31.0-37.0 [facility] Comment on above: Performed By: #### 4 5218 ####[facility] [address] [place], [place] [id number] Glenn Gudino M.D. [id number] Platelet mean volume (Bld) [Entitic vol] 10.4 fL Normal 9.4-12.4 [facility] Comment on above: Performed By: #### 4 5218 ####[facility] [address] [place], [place] [id number] Glenn Gudino M.D. [id number] Platelets (Bld) [#/Vol] 116 10*3/uL Low 150-400 [facility] Comment on above: Result Comment: Resu lts checked Performed By: #### 4 2818 ####[facility] [address] [place] [address] Glenn Gudino M.D. [id number] RBC (Bld) [#/Vol] 2.30 10*6/uL Low 4.00-5.20 [facility] Comment on above: Performed By: #### 4 5218 ####[facility] [address] [place] [address] Glenn Gudino M.D. [id number] WBC (Bld) [#/Vol] 8.81 10*3/uL Normal 4.50-11.00 [facility] Comment on above: Performed By: #### 4 5218 ####[facility] [address] [place] [address] 24214 Glenn Gudino M.D. [id number] CLOSTRIDIOIDES DIFFICILE MENG TINGon 01-31-2024 CLOSTRIDIOIDES DIFFICILE TESTING TOXIGENIC C. DIFFICILE BY PCR DETECTED Toxigenic C. difficile detected in stool. Correlation of test results with patient clinical symptoms is suggested. Young children <3 years of age have an asymptomatic carriage rate as high as 40%. Abnormal [facility] Comment on above: Performed By: #### 4 8543 ####[facility] [address] [place] [address] Glenn Gudino M.D. [id number] CONSULTon 01-31-2024 CONSULT Normal [facility] CV IR DIALYSIS CATHETER INSE RTION TUNNELEDon 01-31-2024 CV IR DIALYSIS CATHETER INSERTION TUNNELED Normal [facility] MAGNESIUM LEVELon 01-31-2024 Magnesium [Mass/Vol] 1.9 mg/dL Normal 1.6-2.4 [facility] Comment on above: Performed By: #### 4 6109 ####[facility] [address] [place] [address]78[address] Glenn Gudino M.D. [id number] Magnesium [Mass/Vol] 1.8 mg/dL Normal 1.6-2.4 [facility] Comment on above: Performed By: #### 4 6109 ####[facility] [address] [place], [place] [id number] Glenn Gudino M.D. [id number] Magnesium [Mass/Vol] 1.8 mg/dL Normal 1.6-2.4 [facility] Comment on above: Performed By: #### 4 6109 ####[facility] [address] [place] [address] Glenn Gudino M.D. [id number] PHOSPHORUSon 01-31-2024 Phosphate [Mass/Vol] 1.9 mg/dL Low 2.8-4.1 [facility] Comment on above: Performed By: #### 4 6299 ####[facility] [address] [place] [address] Gelnn Gudino M.D. [id number] POC GLUCOSE [facility] 024 Glucose [Mass/Vol] 158 mg/dL High 65-[address] [facility] Comment on above: Performed By: #### 4 4950 ####[facility] [address] [place] [address] [id number] RMHPOC Glucose [Mass/Vol] 113 mg/dL High 65-[address] [facility] Comment on above: Performed By: #### 4 6607 ####[facility] [address] [place] [address] [id number] RMHPOC Glucose [Mass/Vol] 97 mg/dL Normal 65-[address] [facility] Comment on above: Performed By: #### 4 0917 ####[facility] [address] [place] [address] [id number] RMHPOC Glucose [Mass/Vol] 134 mg/dL High 65-[address] [facility] Comment on above: Performed By: #### 4 3061 ####[facility] [address] [place] [address] [id number] RMHPOC Glucose [Mass/Vol] 68 mg/dL Normal 65-[address] [facility] Comment on above: Performed By: #### 4 6932 ####[facility] [address] [place] [address] [id number] RMHPOC Glucose [Mass/Vol] 157 mg/dL High 65-[address] [facility] Comment on above: Performed By: #### 4 6932 ####[facility] [address] [place] [address] [id number] RMHPOC Glucose [Mass/Vol] 117 mg/dL High 65-[address] [facility] Comment on above: Performed By: #### 4 6932 ####[facility] [address] [place] [address] [id number] RMHPOC RENAL FUNCTION PANELon 01-30 Albumin [Mass/Vol] 2.4 g/dL Low 3.2-5.[address] [facility] Comment on above: Order Comment: [facility] has implemented the eGFR calculation approach that does not have a coefficient for race that conforms to the NKF-ASN Task Force Recommendations. Performed By: #### 4 6449 ####[facility] [address] [place] [address] Glenn Gudino M.D. [id number] Anion gap [Moles/Vol] 11 mmol/L Normal 10-20 [facility] Comment on above: Order Comment: [facility] has implemented the eGFR calculation approach that does not have a coefficient for race that conforms to the NKF-ASN Task Force Recommendations. Performed By: #### 4 6449 ####[facility] [address] [place] [address] Glenn Gudino M.D. [id number] Calcium [Mass/Vol] 7.2 mg/dL Low 8.4-10.[address] [facility] Comment on above: Order Comment: [facility] has implemented the eGFR calculation approach that does not have a coefficient for race that conforms to the NKF-ASN Task Force Recommendations. Performed By: #### 4 6449 ####[facility] [address] [place] [address] Glenn Gudino M.D. [id number] Chloride [Moles/Vol] 100 mmol/L Normal 98-108 [facility] Comment on above: Order Comment: [facility] has implemented the eGFR calculation approach that does not have a coefficient for race that conforms to the NKF-ASN Task Force Recommendations. Performed By: #### 4 6449 ####[facility] [address] [place] [address] Glenn Gudino M.D. [id number] Creatinine [Mass/Vol] 1.17 mg/dL Normal 0.60-1.10 [facility] Comment on above: Order Comment: [facility] has implemented the eGFR calculation approach that does not have a coefficient for race that conforms to the NKF-ASN Task Force Recommendations. Performed By: #### 4 6449 ####[facility] [address] [place] [address] Glenn Gudino M.D. [id number] EGFR 53 mL/min/1.73 m2 Low >=60 [facility] Comment on above: Order Comment: [facility] has implemented the eGFR calculation approach that does not have a coefficient for race that conforms to the NKF-ASN Task Force Recommendations. Result Comment: Joi mated GFR was calculated using the 2020 CKD-EPI creatinine equation. Performed By: #### 4 6449 ####[facility] [address] [place] [address] 136[address] Glenn Gudino M.D. [id number] Glucose [Mass/Vol] 160 mg/dL High 65-[address] [facility] Comment on above: Order Comment: [facility] has implemented the eGFR calculation approach that does not have a coefficient for race that conforms to the NKF-ASN Task Force Recommendations. Performed By: #### 4 6449 ####[facility] [address] [place] [address] Glenn Gudino M.D. [id number] HCO3 (Bld) [Moles/Vol] 30 mmol/L Normal 21-32 [facility] Comment on above: Order Comment: [facility] has implemented the eGFR calculation approach that does not have a coefficient for race that conforms to the NKF-ASN Task Force Recommendations. Performed By: #### 4 6449 ####[facility] [address] [place] [address] Glenn Gudino M.D. [id number] Phosphate [Mass/Vol] 1.4 mg/dL Low 2.8-4.1 [facility] Comment on above: Order Comment: [facility] has implemented the eGFR calculation approach that does not have a coefficient for race that conforms to the NKF-ASN Task Force Recommendations. Performed By: #### 4 6449 ####[facility] [address] [place], [place] [id number] Glenn Gudino M.D. [id number] Potassium [Moles/Vol] 4.1 mmol/L Normal 3.5-5.1 [facility] Comment on above: Order Comment: [facility] has implemented the eGFR calculation approach that does not have a coefficient for race that conforms to the NKF-ASN Task Force Recommendations. Performed By: #### 4 6449 ####[facility] [address] [place] [address] 238[address] Glenn Gudino M.D. [id number] Sodium [Moles/Vol] 137 mmol/L Normal 135-[address] [facility] Comment on above: Order Comment: [facility] has implemented the eGFR calculation approach that does not have a coefficient for race that conforms to the NKF-ASN Task Force Recommendations. Performed By: #### 4 6449 ####[facility] [address] [place] [address] 299[address] Glenn Gudino M.D. [id number] Urea nitrogen [Mass/Vol] 17 mg/dL Normal 8-25 [facility] Comment on above: Order Comment: [facility] has implemented the eGFR calculation approach that does not have a coefficient for race that conforms to the NKF-ASN Task Force Recommendations. Performed By: #### 4 6449 ####[facility] [address] [place] [address] Glenn Gudino M.D. [id number] Urea nitrogen/Creatinine [Mass ratio] 14.5 mg/mg Normal 10.0-20.0 [facility] Comment on above: Order Comment: [facility] has implemented the eGFR calculation approach that does not have a coefficient for race that conforms to the NKF-ASN Task Force Recommendations. Performed By: #### 4 6449 ####[facility] [address] [place] [address] Glenn Gudino M.D. [id number] TYPE AND SCREENon 01-31-2024 TYPE AND SCREEN ABORH: O Positive AB SCREEN: Positive EXPIRATION DATE: 02/03/2024 23:59 EST Normal [facility] Comment on above: Performed By: #### 4 6619 ####[facility] [address] [place] [address] Nurys Oneill MD [id number] RMHTS XR CHEST PA/APon 01-31-2024 XR CHEST PA/AP Normal [facility] Comment on above: Order Comment: Injur y/Trauma or Illness?:Illness/OtherHow long have you had these symptoms (acute/chronic)?:AcuteReason for exam?:chest tube palcement, pneumothoraxHistory of cancer?:uSurgeries, chemotherapy, or radiation?:uType of Exam?:Subsequent/Follow-upAdditional signs and symptoms?:chest tube palcement, pneumothorax APTT HEPARIN COVERAGEon aPTT Coag (Bld) [Time] 88 s High 23-34 Ri [facility] Comment on above: Order Comment: Thera peutic range for APTT's is 68 - 104 seconds Performed By: #### 4 6804 ####[facility] [address] [place], [place] [id number] Glenn Gudino M.D. [id number] CALCIUM, IONIZEDon CALCIUM IONIZED 4.4 mg/dL Low 4.5-5.3 [facility] Comment on above: Order Comment: Serum , non-CRRT source. Performed By: #### 4 5190 ####[facility] [address] [place] [address] Glenn Gudino M.D. [id number] CBCon 01-30-2024 AUTO NRBC 0.0 % Normal [facility] Comment on above: Performed By: #### 4 [id number] ####[facility] [address] [place] [address] Glenn Gudino M.D. [id number] AUTO NRBC ABS COUNT 0.00 K/mcL Normal 0.00-0.00 [facility] Comment on above: Performed By: #### 4 [id number] ####[facility] [address] [place], [place] [id number] Glenn Gudino M.D. [id number] Erythrocyte distribution width (RBC) [Ratio] 16.0 % High 11.6-14.8 [facility] Comment on above: Performed By: #### 4 5218 ####[facility] [address] [place], [place] [id number] Glenn Gudino M.D. [id number] Hematocrit (Bld) [Volume fraction] 23.2 % Low 36.0-46.0 [facility] Comment on above: Performed By: #### 4 [id number] ####[facility] [address] [place], [place] [id number] Glenn Gudino M.D. [id number] Hemoglobin (Bld) [Mass/Vol] 7.5 g/dL Low 12.0-16.0 [facility] Comment on above: Performed By: #### 4 [id number] ####[facility] [address] [place], [place] [id number] Glenn Gudino M.D. [id number] MCH (RBC) [Entitic mass] 29.5 pg Normal 26.0-34.0 [facility] Comment on above: Performed By: #### 4 [id number] ####[facility] [address] [place] [address] Glenn Gudino M.D. [id number] MCV (RBC) [Entitic vol] 91.3 fL Normal 80.0-100.0 [facility] Comment on above: Performed By: #### 4 [id number] ####[facility] [address] [place] [address] Glenn Gudino M.D. [id number] MEAN CORPUSCULAR HEMOGLOBIN CONC 32.3 g/dL Normal 31.0-37.0 [facility] Comment on above: Performed By: #### 4 [id number] ####[facility] [address] [place], [place] [id number] Glenn Gudino M.D. [id number] Platelet mean volume (Bld) [Entitic vol] 10.2 fL Normal 9.4-12.4 [facility] Comment on above: Performed By: #### 4 [id number] ####[facility] [address] [place], [place] [id number] Glenn Gudino M.D. [id number] Platelets (Bld) [#/Vol] 106 10*3/uL Low 150-400 [facility] Comment on above: Result Comment: Resu lts checked Performed By: #### 4 [id number] ####[facility] [address] [place], [place] [id number] Glenn Gudino M.D. [id number] RBC (Bld) [#/Vol] 2.54 10*6/uL Low 4.00-5.20 [facility] Comment on above: Performed By: #### 4 5218 ####[facility] [address] [place], [place] [id number] Glenn Gudino M.D. [id number] WBC (Bld) [#/Vol] 11.63 10*3/uL High 4.50-11.00 [facility] Comment on above: Performed By: #### 4 [id number] ####[facility] [address] [place] [address] Glenn Gudino M.D. [id number] HEMOGLOBIN AND HEMATOCRITon 01-30-2024 Hematocrit (Bld) [Volume fraction] 26.4 % Low 36.0-46.0 [facility] Comment on above: Performed By: #### 4 6909 ####[facility] [address] [place], [place] [id number] Glenn Gudino M.D. [id number] Hemoglobin (Bld) [Mass/Vol] 8.8 g/dL Low 12.0-16.0 [facility] Comment on above: Performed By: #### 4 6909 ####[facility] [address] [place], [place] [id number] Glenn Gudino M.D. [id number] MAGNESIUM LEVELon 01-30-2024 Magnesium [Mass/Vol] 2.0 mg/dL Normal 1.6-2.4 [facility] Comment on above: Performed By: #### 4 6109 ####[facility] [address] [place], [place] [id number] Glenn Gudino M.D. [id number] POC GLUCOSE - [facility] 024 Glucose [Mass/Vol] 165 mg/dL High [facility] Comment on above: Performed By: #### 4 6941 ####[facility] [address] [place] [address] [id number] [facility] Glucose [Mass/Vol] 137 mg/dL High - [facility] Comment on above: Performed By: #### 4 6932 ####[facility] [address] [place] [address] [id number] [facility] Glucose [Mass/Vol] 129 mg/dL High [facility] Comment on above: Performed By: #### 4 6932 ####[facility] [address] [place] [address] [id number] [facility] Glucose [Mass/Vol] 159 mg/dL High [facility] Comment on above: Performed By: #### 4 6932 ####[facility] [address] [place] [address] [id number] [facility] Glucose [Mass/Vol] 151 mg/dL High [facility] Comment on above: Performed By: #### 4 6932 ####[facility] [address] [place] [address] [id number] [facility] Glucose [Mass/Vol] 157 mg/dL High [facility] Comment on above: Performed By: #### 4 6932 ####[facility] [address] [place] [address] [id number] [facility] RENAL FUNCTION PANEL 01-29 Albumin [Mass/Vol] 2.1 g/dL Low 3.2-5.[address] [facility] Comment on above: Order Comment: [facility] has implemented the eGFR calculation approach that does not have a coefficient for race that conforms to the NKF-ASN Task Force Recommendations. Performed By: #### 4 6449 ####[facility] [address] [place] [address] Glenn Gudino M.D. [id number] Anion gap [Moles/Vol] 11 mmol/L Normal 10-20 [facility] Comment on above: Order Comment: [facility] has implemented the eGFR calculation approach that does not have a coefficient for race that conforms to the NKF-ASN Task Force Recommendations. Performed By: #### 4 6449 ####[facility] [address] [place] [address] Glenn Gudino M.D. [id number] Calcium [Mass/Vol] 7.3 mg/dL Low 8.4-10.[address] [facility] Comment on above: Order Comment: [facility] has implemented the eGFR calculation approach that does not have a coefficient for race that conforms to the NKF-ASN Task Force Recommendations. Performed By: #### 4 6449 ####[facility] [address] [place] [address] Glenn Gudino M.D. [id number] Chloride [Moles/Vol] 102 mmol/L Normal 98-108 [facility] Comment on above: Order Comment: [facility] has implemented the eGFR calculation approach that does not have a coefficient for race that conforms to the NKF-ASN Task Force Recommendations. Performed By: #### 4 6449 ####[facility] [address] [place] [address] Glenn Gudino M.D. [id number] Creatinine [Mass/Vol] 2.40 mg/dL High 0.60-1.10 [facility] Comment on above: Order Comment: [facility] has implemented the eGFR calculation approach that does not have a coefficient for race that conforms to the NKF-ASN Task Force Recommendations. Performed By: #### 4 6449 ####[facility] [address] [place], [place] [address] Glenn Gudino M.D. [id number] EGFR 22 mL/min/1.73 m2 Low >=60 [facility] Comment on above: Order Comment: [facility] has implemented the eGFR calculation approach that does not have a coefficient for race that conforms to the NKF-ASN Task Force Recommendations. Result Comment: Joi mated GFR was calculated using the 2020 CKD-EPI creatinine equation. Performed By: #### 4 6449 ####[facility] [address] [place], [place] [address] Glenn Gudino M.D. [id number] Glucose [Mass/Vol] 139 mg/dL High 65-[address] [facility] Comment on above: Order Comment: [facility] has implemented the eGFR calculation approach that does not have a coefficient for race that conforms to the NKF-ASN Task Force Recommendations. Performed By: #### 4 6449 ####[facility] [address] [place], [place] [id number] Glenn Gudino M.D. [id number] HCO3 (Bld) [Moles/Vol] 28 mmol/L Normal 21-32 [facility] Comment on above: Order Comment: [facility] has implemented the eGFR calculation approach that does not have a coefficient for race that conforms to the NKF-ASN Task Force Recommendations. Performed By: #### 4 6449 ####[facility] [address] [place], [place] [address] Glenn Gudino M.D. [id number] Phosphate [Mass/Vol] 2.8 mg/dL Normal 2.8-4.1 [facility] Comment on above: Order Comment: [facility] has implemented the eGFR calculation approach that does not have a coefficient for race that conforms to the NKF-ASN Task Force Recommendations. Performed By: #### 4 6449 ####[facility] [address] [place] [address] Glenn Gudino M.D. [id number] Potassium [Moles/Vol] 5.1 mmol/L Normal 3.5-5.1 [facility] Comment on above: Order Comment: [facility] has implemented the eGFR calculation approach that does not have a coefficient for race that conforms to the NKF-ASN Task Force Recommendations. Result Comment: Slig htly Hemolyzed Performed By: #### 4 6449 ####[facility] [address] [place] [address] Glenn Gudino M.D. [id number] Sodium [Moles/Vol] 136 mmol/L Normal 135-[address] [facility] Comment on above: Order Comment: [facility] has implemented the eGFR calculation approach that does not have a coefficient for race that conforms to the NKF-ASN Task Force Recommendations. Performed By: #### 4 6449 ####[facility] [address] [place], [place] [id number] Glenn Gudino M.D. [id number] Urea nitrogen [Mass/Vol] 36 mg/dL High 8-25 [facility] Comment on above: Order Comment: [facility] has implemented the eGFR calculation approach that does not have a coefficient for race that conforms to the NKF-ASN Task Force Recommendations. Performed By: #### 4 6449 ####[facility] [address] [place] [address] Glenn Gudino M.D. [id number] Urea nitrogen/Creatinine [Mass ratio] 15.0 mg/mg Normal 10.0-20.0 [facility] Comment on above: Order Comment: [facility] has implemented the eGFR calculation approach that does not have a coefficient for race that conforms to the NKF-ASN Task Force Recommendations. Performed By: #### 4 6449 ####[facility] [address] [place] [address] Glenn Gudino M.D. [id number] Albumin [Mass/Vol] 2.1 g/dL Low 3.2-5.[address] [facility] Comment on above: Order Comment: [facility] has implemented the eGFR calculation approach that does not have a coefficient for race that conforms to the NKF-ASN Task Force Recommendations. Performed By: #### 4 6449 ####[facility] [address] [place] [address] Glenn Gudino M.D. [id number] Anion gap [Moles/Vol] 12 mmol/L Normal 10-20 [facility] Comment on above: Order Comment: [facility] has implemented the eGFR calculation approach that does not have a coefficient for race that conforms to the NKF-ASN Task Force Recommendations. Performed By: #### 4 6449 ####[facility] [address] [place] [address] Glenn Gudino M.D. [id number] Calcium [Mass/Vol] 7.5 mg/dL Low 8.4-10.[address] [facility] Comment on above: Order Comment: [facility] has implemented the eGFR calculation approach that does not have a coefficient for race that conforms to the NKF-ASN Task Force Recommendations. Performed By: #### 4 6449 ####[facility] [address] [place], [place] [id number] Glenn Gudino M.D. [id number] Chloride [Moles/Vol] 99 mmol/L Normal 98-108 [facility] Comment on above: Order Comment: [facility] has implemented the eGFR calculation approach that does not have a coefficient for race that conforms to the NKF-ASN Task Force Recommendations. Performed By: #### 4 6449 ####[facility] [address] [place] [address] Glenn Gudino M.D. [id number] Creatinine [Mass/Vol] 2.02 mg/dL High 0.60-1.10 [facility] Comment on above: Order Comment: [facility] has implemented the eGFR calculation approach that does not have a coefficient for race that conforms to the NKF-ASN Task Force Recommendations. Performed By: #### 4 6449 ####[facility] [address] [place] [address] Glenn Gudino M.D. [id number] EGFR 28 mL/min/1.73 m2 Low >=60 [facility] Comment on above: Order Comment: [facility] has implemented the eGFR calculation approach that does not have a coefficient for race that conforms to the NKF-ASN Task Force Recommendations. Result Comment: Joi mated GFR was calculated using the 2020 CKD-EPI creatinine equation. Performed By: #### 4 6449 ####[facility] [address] [place] [address] Glenn Gudino M.D. [id number] Glucose [Mass/Vol] 150 mg/dL High 65-[address] [facility] Comment on above: Order Comment: [facility] has implemented the eGFR calculation approach that does not have a coefficient for race that conforms to the NKF-ASN Task Force Recommendations. Performed By: #### 4 6449 ####[facility] [address] [place] [address] Glenn Gudino M.D. [id number] HCO3 (Bld) [Moles/Vol] 27 mmol/L Normal 21-32 [facility] Comment on above: Order Comment: [facility] has implemented the eGFR calculation approach that does not have a coefficient for race that conforms to the NKF-ASN Task Force Recommendations. Performed By: #### 4 6449 ####[facility] [address] [place] [address] Glenn Gudino M.D. [id number] Phosphate [Mass/Vol] 2.6 mg/dL Low 2.8-4.1 [facility] Comment on above: Order Comment: [facility] has implemented the eGFR calculation approach that does not have a coefficient for race that conforms to the NKF-ASN Task Force Recommendations. Performed By: #### 4 6449 ####[facility] [address] [place] [address] Glenn Gudino M.D. [id number] Potassium [Moles/Vol] 4.3 mmol/L Normal 3.5-5.1 [facility] Comment on above: Order Comment: [facility] has implemented the eGFR calculation approach that does not have a coefficient for race that conforms to the NKF-ASN Task Force Recommendations. Performed By: #### 4 6449 ####[facility] [address] [place] [address] Glenn Gudino M.D. [id number] Sodium [Moles/Vol] 134 mmol/L Low 135-[address] [facility] Comment on above: Order Comment: [facility] has implemented the eGFR calculation approach that does not have a coefficient for race that conforms to the NKF-ASN Task Force Recommendations. Performed By: #### 4 6449 ####[facility] [address] [place], [place] [address] Glenn Gudino M.D. [id number] Urea nitrogen [Mass/Vol] 28 mg/dL High 8-25 [facility] Comment on above: Order Comment: [facility] has implemented the eGFR calculation approach that does not have a coefficient for race that conforms to the NKF-ASN Task Force Recommendations. Performed By: #### 4 6449 ####[facility] [address] [place], [place] [address] Glenn Gudino M.D. [id number] Urea nitrogen/Creatinine [Mass ratio] 13.9 mg/mg Normal 10.0-20.0 [facility] Comment on above: Order Comment: [facility] has implemented the eGFR calculation approach that does not have a coefficient for race that conforms to the NKF-ASN Task Force Recommendations. Performed By: #### 4 6449 ####[facility] [address] [place], [place] [id number] Glenn Gudino M.D. [id number] XR CHEST PA/APon 01-30-2024 XR CHEST PA/AP Normal [facility] Comment on above: Order Comment: Injur y/Trauma or Illness?:Illness/OtherHow long have you had these symptoms (acute/chronic)?:AcuteReason for exam?:chest tube palcement, pneumothoraxHistory of cancer?:uSurgeries, chemotherapy, or radiation?:uType of Exam?:Subsequent/Follow-upAdditional signs and symptoms?:chest tube palcement, pneumothorax APTT HEPARIN COVERAGEon aPTT Coag (Bld) [Time] 90 s High 23-34 [facility] Comment on above: Order Comment: Thera peutic range for APTT's is 68 - 104 seconds Performed By: #### 4 6848 ####[facility] [address] [place] [address] Glenn Gudino M.D. [id number] aPTT Coag (Bld) [Time] 93 s High 23-34 [facility] Comment on above: Order Comment: Thera peutic range for APTT's is 68 - 104 seconds Result Comment: Resu lts checked. Performed By: #### 4 6848 ####[facility] [address] [place] [address] Glenn Gudino M.D. [id number] aPTT Coag (Bld) [Time] 66 s High 23-34 [facility] Comment on above: Order Comment: Thera peutic range for APTT's is 68 - 104 seconds Performed By: #### 4 6848 ####[facility] [address] [place], [place] [id number] Glenn Gudino M.D. [id number] aPTT Coag (Bld) [Time] 54 s High 23-34 [facility] Comment on above: Order Comment: Thera peutic range for APTT's is 68 - 104 secondsResults checked. Performed By: #### 4 6848 ####[facility] [address] [place], [place] [address] Glenn Gudino M.D. [id number] CALCIUM, IONIZEDon CALCIUM IONIZED 4.6 mg/dL Normal 4.5-5.3 [facility] Comment on above: Order Comment: Serum , non-CRRT source. Performed By: #### 4 5190 ####[facility] [address] [place] [address] Glenn Gudino M.D. [id number] CBCon 01-29-2024 AUTO NRBC 0.0 % Normal [facility] Comment on above: Performed By: #### 4 5218 ####[facility] [address] [place], [place] [id number] Glenn Gudino M.D. [id number] AUTO NRBC ABS COUNT 0.00 K/mcL Normal 0.00-0.00 [facility] Comment on above: Performed By: #### 4 5218 ####[facility] [address] [place], [place] [id number] Glenn Gudino M.D. [id number] Erythrocyte distribution width (RBC) [Ratio] 17.1 % High 11.6-14.8 [facility] Comment on above: Performed By: #### 4 5218 ####[facility] [address] [place] [address] Glenn Gudino M.D. [id number] Hematocrit (Bld) [Volume fraction] 24.0 % Low 36.0-46.0 [facility] Comment on above: Performed By: #### 4 5218 ####[facility] [address] [place], [place] [address]Karma Gudino M.D. [id number] Hemoglobin (Bld) [Mass/Vol] 7.7 g/dL Low 12.0-16.0 [facility] Comment on above: Performed By: #### 4 5218 ####[facility] [address] [place], [place] [id number] Glenn Gudino M.D. [id number] MCH (RBC) [Entitic mass] 28.9 pg Normal 26.0-34.0 [facility] Comment on above: Performed By: #### 4 5218 ####[facility] [address] [place], [place] [id number] Glenn Gudino M.D. [id number] MCV (RBC) [Entitic vol] 90.2 fL Normal 80.0-100.0 [facility] Comment on above: Performed By: #### 4 5218 ####[facility] [address] [place] [address] Glenn Gudino M.D. [id number] MEAN CORPUSCULAR HEMOGLOBIN CONC 32.1 g/dL Normal 31.0-37.0 [facility] Comment on above: Performed By: #### 4 5218 ####[facility] [address] [place] [address] Glenn Gudino M.D. [id number] Platelet mean volume (Bld) [Entitic vol] 10.2 fL Normal 9.4-12.4 [facility] Comment on above: Performed By: #### 4 [id number] ####[facility] [address] [place], [place] [id number] Glenn Gudino M.D. [id number] Platelets (Bld) [#/Vol] 122 10*3/uL Low 150-400 [facility] Comment on above: Performed By: #### 4 5218 ####[facility] [address] [place], [place] [id number] Glenn Gudino M.D. [id number] RBC (Bld) [#/Vol] 2.66 10*6/uL Low 4.00-5.20 [facility] Comment on above: Performed By: #### 4 5218 ####[facility] [address] [place], [place] [id number] Glenn Gudino M.D. [id number] WBC (Bld) [#/Vol] 8.35 10*3/uL Normal 4.50-11.00 [facility] Comment on above: Performed By: #### 4 5218 ####[facility] [address] [place], [place] [id number] Glenn Gudino M.D. [id number] HEPATITIS B SURFACE ANTIGENo n 01-29-2024 HEPATITIS B SURFACE ANTIGEN Negative Normal Negative [facility] Comment on above: Order Comment: Test performed using Adele ANNALISE immunoassay system Performed By: #### 4 4081 ####[facility] [address] [place] [address] Glenn Gudino M.D. [id number] MAGNESIUM LEVELon 01-29-2024 Magnesium [Mass/Vol] 2.2 mg/dL Normal 1.6-2.4 [facility] Comment on above: Performed By: #### 4 6109 ####[facility] [address] [place] [address] Glenn Gudino M.D. [id number] POC GLUCOSE - [facility] 024 Glucose [Mass/Vol] 167 mg/dL High 65-[address] [facility] Comment on above: Performed By: #### 4 6932 ####[facility] [address] [place] [address] [id number] [facility] Glucose [Mass/Vol] 121 mg/dL High 65-[address] [facility] Comment on above: Performed By: #### 4 6932 ####[facility] [address] [place] [address] [id number] [facility] Glucose [Mass/Vol] 54 mg/dL Low 65-[address] [facility] Comment on above: Performed By: #### 4 7443 ####[facility] [address] [place] [address] [id number] [facility] Glucose [Mass/Vol] 103 mg/dL High 65-[address] [facility] Comment on above: Performed By: #### 4 5911 ####[facility] [address] [place] [address] [id number] [facility] Glucose [Mass/Vol] 131 mg/dL High 65-[address] [facility] Comment on above: Performed By: #### 4 6430 ####[facility] [address] [place] [address] [id number] [facility] Glucose [Mass/Vol] 96 mg/dL Normal 65-[address] [facility] Comment on above: Performed By: #### 4 6932 ####[facility] [address] [place] [address] [id number] [facility] Glucose [Mass/Vol] 114 mg/dL High 65-[address] [facility] Comment on above: Performed By: #### 4 6932 ####[facility] [address] [place] [address] [id number] [facility] RENAL FUNCTION PANELon 01-28 Albumin [Mass/Vol] 2.3 g/dL Low 3.2-5.[address] [facility] Comment on above: Order Comment: [facility] has implemented the eGFR calculation approach that does not have a coefficient for race that conforms to the NKF-ASN Task Force Recommendations. Performed By: #### 4 6449 ####[facility] [address] [place] [address] Glenn Gudino M.D. [id number] Anion gap [Moles/Vol] 11 mmol/L Normal 10-20 [facility] Comment on above: Order Comment: [facility] has implemented the eGFR calculation approach that does not have a coefficient for race that conforms to the NKF-ASN Task Force Recommendations. Performed By: #### 4 6449 ####[facility] [address] [place] [address] Glenn Gudino M.D. [id number] Calcium [Mass/Vol] 7.3 mg/dL Low 8.4-10.[address] [facility] Comment on above: Order Comment: [facility] has implemented the eGFR calculation approach that does not have a coefficient for race that conforms to the NKF-ASN Task Force Recommendations. Performed By: #### 4 6449 ####[facility] [address] [place] [address] Glenn Gudino M.D. [id number] Chloride [Moles/Vol] 100 mmol/L Normal 98-108 [facility] Comment on above: Order Comment: [facility] has implemented the eGFR calculation approach that does not have a coefficient for race that conforms to the NKF-ASN Task Force Recommendations. Performed By: #### 4 6449 ####[facility] [address] [place] [address] Glenn Gudino M.D. [id number] Creatinine [Mass/Vol] 1.90 mg/dL High 0.60-1.10 [facility] Comment on above: Order Comment: [facility] has implemented the eGFR calculation approach that does not have a coefficient for race that conforms to the NKF-ASN Task Force Recommendations. Performed By: #### 4 6449 ####[facility] [address] [place], [place] [id number] Glenn Gudino M.D. [id number] EGFR 30 mL/min/1.73 m2 Low >=60 [facility] Comment on above: Order Comment: [facility] has implemented the eGFR calculation approach that does not have a coefficient for race that conforms to the NKF-ASN Task Force Recommendations. Result Comment: Joi mated GFR was calculated using the 2020 CKD-EPI creatinine equation. Performed By: #### 4 6449 ####[facility] [address] [place], [place] [id number] Glenn Gudino M.D. [id number] Glucose [Mass/Vol] 151 mg/dL High 65-[address] [facility] Comment on above: Order Comment: [facility] has implemented the eGFR calculation approach that does not have a coefficient for race that conforms to the NKF-ASN Task Force Recommendations. Performed By: #### 4 6449 ####[facility] [address] [place] [address] Glenn Gudino M.D. [id number] HCO3 (Bld) [Moles/Vol] 28 mmol/L Normal 21-32 [facility] Comment on above: Order Comment: [facility] has implemented the eGFR calculation approach that does not have a coefficient for race that conforms to the NKF-ASN Task Force Recommendations. Performed By: #### 4 6449 ####[facility] [address] [place] [address] Glenn Gudino M.D. [id number] Phosphate [Mass/Vol] 2.2 mg/dL Low 2.8-4.1 [facility] Comment on above: Order Comment: [facility] has implemented the eGFR calculation approach that does not have a coefficient for race that conforms to the NKF-ASN Task Force Recommendations. Performed By: #### 4 6449 ####[facility] [address] [place], [place] [id number] Glenn Gudino M.D. [id number] Potassium [Moles/Vol] 4.3 mmol/L Normal 3.5-5.1 [facility] Comment on above: Order Comment: [facility] has implemented the eGFR calculation approach that does not have a coefficient for race that conforms to the NKF-ASN Task Force Recommendations. Performed By: #### 4 6449 ####[facility] [address] [place] [address] Glenn Gudino M.D. [id number] Sodium [Moles/Vol] 135 mmol/L Normal 135-[address] [facility] Comment on above: Order Comment: [facility] has implemented the eGFR calculation approach that does not have a coefficient for race that conforms to the NKF-ASN Task Force Recommendations. Performed By: #### 4 6449 ####[facility] [address] [place] [address] Glenn Gudino M.D. [id number] Urea nitrogen [Mass/Vol] 26 mg/dL High 8-25 [facility] Comment on above: Order Comment: [facility] has implemented the eGFR calculation approach that does not have a coefficient for race that conforms to the NKF-ASN Task Force Recommendations. Performed By: #### 4 6449 ####[facility] [address] [place] [address] Glenn Gudino M.D. [id number] Urea nitrogen/Creatinine [Mass ratio] 13.7 mg/mg Normal 10.0-20.0 [facility] Comment on above: Order Comment: [facility] has implemented the eGFR calculation approach that does not have a coefficient for race that conforms to the NKF-ASN Task Force Recommendations. Performed By: #### 4 6449 ####[facility] [address] [place] [address] Glenn Gudino M.D. [id number] Albumin [Mass/Vol] 1.5 g/dL Low 3.2-5.[address] [facility] Comment on above: Order Comment: [facility] has implemented the eGFR calculation approach that does not have a coefficient for race that conforms to the NKF-ASN Task Force Recommendations. Performed By: #### 4 6449 ####[facility] [address] [place] [address] Glenn Gudino M.D. [id number] Anion gap [Moles/Vol] 13 mmol/L Normal 10-[address] [facility] Comment on above: Order Comment: [facility] has implemented the eGFR calculation approach that does not have a coefficient for race that conforms to the NKF-ASN Task Force Recommendations. Performed By: #### 4 6449 ####[facility] [address] [place] [address] Glenn Gudino M.D. [id number] Calcium [Mass/Vol] 7.3 mg/dL Low 8.4-10.[address] [facility] Comment on above: Order Comment: [facility] has implemented the eGFR calculation approach that does not have a coefficient for race that conforms to the NKF-ASN Task Force Recommendations. Performed By: #### 4 6449 ####[facility] [address] [place] [address] Glenn Gudino M.D. [id number] Chloride [Moles/Vol] 104 mmol/L Normal 98-108 [facility] Comment on above: Order Comment: [facility] has implemented the eGFR calculation approach that does not have a coefficient for race that conforms to the NKF-ASN Task Force Recommendations. Performed By: #### 4 6449 ####[facility] [address] [place], [place] [id number] Glenn Gudino M.D. [id number] Creatinine [Mass/Vol] 2.66 mg/dL High 0.60-1.10 [facility] Comment on above: Order Comment: [facility] has implemented the eGFR calculation approach that does not have a coefficient for race that conforms to the NKF-ASN Task Force Recommendations. Performed By: #### 4 6449 ####[facility] [address] [place], [place] [id number] Glenn Gudino M.D. [id number] EGFR 20 mL/min/1.73 m2 Low >=60 [facility] Comment on above: Order Comment: [facility] has implemented the eGFR calculation approach that does not have a coefficient for race that conforms to the NKF-ASN Task Force Recommendations. Result Comment: Joi mated GFR was calculated using the 2020 CKD-EPI creatinine equation. Performed By: #### 4 6449 ####[facility] [address] [place] [address] Glenn Gudino M.D. [id number] Glucose [Mass/Vol] 104 mg/dL High 65-[address] [facility] Comment on above: Order Comment: [facility] has implemented the eGFR calculation approach that does not have a coefficient for race that conforms to the NKF-ASN Task Force Recommendations. Performed By: #### 4 6449 ####[facility] [address] [place], [place] [id number] Glenn Gudino M.D. [id number] HCO3 (Bld) [Moles/Vol] 23 mmol/L Normal 21-32 [facility] Comment on above: Order Comment: [facility] has implemented the eGFR calculation approach that does not have a coefficient for race that conforms to the NKF-ASN Task Force Recommendations. Performed By: #### 4 6449 ####[facility] [address] [place], [place] [id number] Glenn Gudino M.D. [id number] Phosphate [Mass/Vol] 3.1 mg/dL Normal 2.8-4.1 [facility] Comment on above: Order Comment: [facility] has implemented the eGFR calculation approach that does not have a coefficient for race that conforms to the NKF-ASN Task Force Recommendations. Performed By: #### 4 6449 ####[facility] [address] [place] [address] Glenn Gudino M.D. [id number] Potassium [Moles/Vol] 5.0 mmol/L Normal 3.5-5.1 [facility] Comment on above: Order Comment: [facility] has implemented the eGFR calculation approach that does not have a coefficient for race that conforms to the NKF-ASN Task Force Recommendations. Performed By: #### 4 6449 ####[facility] [address] [place] [address] Glenn Gudino M.D. [id number] Sodium [Moles/Vol] 135 mmol/L Normal 135-[address] [facility] Comment on above: Order Comment: [facility] has implemented the eGFR calculation approach that does not have a coefficient for race that conforms to the NKF-ASN Task Force Recommendations. Performed By: #### 4 6449 ####[facility] [address] [place], [place] [address] Glenn Gudino M.D. [id number] Urea nitrogen [Mass/Vol] 42 mg/dL High 8-25 [facility] Comment on above: Order Comment: [facility] has implemented the eGFR calculation approach that does not have a coefficient for race that conforms to the NKF-ASN Task Force Recommendations. Performed By: #### 4 6449 ####[facility] [address] [place] [address] Glenn Gudino M.D. [id number] Urea nitrogen/Creatinine [Mass ratio] 15.8 mg/mg Normal 10.0-20.0 [facility] Comment on above: Order Comment: [facility] has implemented the eGFR calculation approach that does not have a coefficient for race that conforms to the NKF-ASN Task Force Recommendations. Performed By: #### 4 6449 ####[facility] [address] [place] [address] Glenn Gudino M.D. [id number] XR ABDOMEN /KUB/FLAT PLATE/1 VIEWon 01-29-2024 XR ABDOMEN /KUB/FLAT PLATE/1 VIEW [facility] Comment on above: Order Comment: Injur y/Trauma or Illness?:Illness/OtherHow long have you had these symptoms (acute/chronic)?:AcuteReason for exam?:NGT placementHistory of cancer?:uSurgeries, chemotherapy, or radiation?:uType of Exam?:UnknownAdditional signs and symptoms?:no XR CHEST PA/APon 01-29-2024 XR CHEST PA/AP [facility] Comment on above: Order Comment: Injur y/Trauma or Illness?:Illness/OtherHow long have you had these symptoms (acute/chronic)?:AcuteReason for exam?:chest tube palcement, pneumothoraxHistory of cancer?:uSurgeries, chemotherapy, or radiation?:uType of Exam?:Subsequent/Follow-upAdditional signs and symptoms?:chest tube palcement, pneumothorax ANTIBODY IDENTIFICATION-Con 01-28-2024 ANTIBODY IDENTIFICATION-C [facility] Comment on above: Performed By: #### 4 6427_Anti-C ####[facility] [address] [place] [address] Nurys Oneill MD [id number] [facility] APTT HEPARIN COVERAGEon 09-0 aPTT Coag (Bld) [Time] 70 s High 23-34 Ri [facility] Comment on above: Order Comment: Thera peutic range for APTT's is 68 - 104 seconds Result Comment: Resu lts checked. Performed By: #### 4 6848 ####[facility] [address] [place], [place] [id number] Glenn Gudino M.D. [id number] B12/FOLATEon 01-28-2024 Cobalamin (Vitamin B12) [Mass/Vol] 879 pg/mL Normal 232-1245 [facility] Comment on above: Performed By: #### 4 6967 ####[facility] [address] [place], [place] [address] Glenn Gudino M.D. [id number] FOLATE 10.0 ng/mL Normal 3.1-17.5 [facility] Comment on above: Result Comment: Defi cient <2.2Borderline 2.2 - 3.0Excessive >17.5 Performed By: #### 4 6967 ####[facility] [address] [place], [place] [id number] Glenn Gudino M.D. [id number] CALCIUM, IONIZEDon CALCIUM IONIZED 4.5 mg/dL Normal 4.5-5.3 [facility] Comment on above: Order Comment: Serum , non-CRRT source. Performed By: #### 4 5190 ####[facility] [address] [place] [address] Glenn Gudino M.D. [id number] CBCon 01-28-2024 AUTO NRBC 0.0 % Normal [facility] Comment on above: Order Comment: One h our post RBC transfusion Performed By: #### 4 5218 ####[facility] [address] [place], [place] [id number] Glenn Gudino M.D. [id number] AUTO NRBC ABS COUNT 0.00 K/mcL Normal 0.00-0.00 [facility] Comment on above: Order Comment: One h our post RBC transfusion Performed By: #### 4 5218 ####[facility] [address] [place] [address] Glenn Gudino M.D. [id number] Erythrocyte distribution width (RBC) [Ratio] 16.3 % High 11.6-14.8 [facility] Comment on above: Order Comment: One h our post RBC transfusion Performed By: #### 4 5218 ####[facility] [address] [place] [address] Glenn Gudino M.D. [id number] Hematocrit (Bld) [Volume fraction] 25.3 % Low 36.0-46.0 [facility] Comment on above: Order Comment: One h our post RBC transfusion Performed By: #### 4 5218 ####[facility] [address] [place] [address] Glenn Gudino M.D. [id number] Hemoglobin (Bld) [Mass/Vol] 8.2 g/dL Low 12.0-16.0 [facility] Comment on above: Order Comment: One h our post RBC transfusion Performed By: #### 4 5218 ####[facility] [address] [place], [place] [id number] Glenn Gudino M.D. [id number] MCH (RBC) [Entitic mass] 29.3 pg Normal 26.0-34.0 [facility] Comment on above: Order Comment: One h our post RBC transfusion Performed By: #### 4 5218 ####[facility] [address] [place] [address] Glenn Gudino M.D. [id number] MCV (RBC) [Entitic vol] 90.4 fL Normal 80.0-100.0 [facility] Comment on above: Order Comment: One h our post RBC transfusion Performed By: #### 4 5218 ####[facility] [address] [place] [address] Glenn Gudino M.D. [id number] MEAN CORPUSCULAR HEMOGLOBIN CONC 32.4 g/dL Normal 31.0-37.0 [facility] Comment on above: Order Comment: One h our post RBC transfusion Performed By: #### 4 5218 ####[facility] [address] [place] [address] Glenn Gudino M.D. [id number] Platelet mean volume (Bld) [Entitic vol] 10.9 fL Normal 9.4-12.4 [facility] Comment on above: Order Comment: One h our post RBC transfusion Performed By: #### 4 [id number] ####[facility] [address] [place] [address] Glenn Gudino M.D. [id number] Platelets (Bld) [#/Vol] 118 10*3/uL Low 150-400 [facility] Comment on above: Order Comment: One h our post RBC transfusion Performed By: #### 4 5218 ####[facility] [address] [place], [place] [id number] Glenn Gudino M.D. [id number] RBC (Bld) [#/Vol] 2.80 10*6/uL Low 4.00-5.20 [facility] Comment on above: Order Comment: One h our post RBC transfusion Performed By: #### 4 5218 ####[facility] [address] [place], [place] [id number] Glenn Gudino M.D. [id number] WBC (Bld) [#/Vol] 7.55 10*3/uL Normal 4.50-11.00 [facility] Comment on above: Order Comment: One h our post RBC transfusion Performed By: #### 4 5218 ####[facility] [address] [place] [address] Glenn Gudino M.D. [id number] AUTO NRBC 0.0 % Normal [facility] Comment on above: Performed By: #### 4 5218 ####[facility] [address] [place], [place] [id number] Glenn Gudino M.D. [id number] AUTO NRBC ABS COUNT 0.00 K/mcL Normal 0.00-0.00 [facility] Comment on above: Performed By: #### 4 5218 ####[facility] [address] [place] [address] Glenn Gudino M.D. [id number] Erythrocyte distribution width (RBC) [Ratio] 17.2 % High 11.6-14.8 [facility] Comment on above: Performed By: #### 4 5218 ####[facility] [address] [place] [address] Glenn Gudino M.D. [id number] Hematocrit (Bld) [Volume fraction] 22.0 % Low 36.0-46.0 [facility] Comment on above: Performed By: #### 4 5218 ####[facility] [address] [place], [place] [id number] Glenn Gudino M.D. [id number] Hemoglobin (Bld) [Mass/Vol] 7.2 g/dL Low 12.0-16.0 [facility] Comment on above: Result Comment: Repe ated verified Performed By: #### 4 5218 ####[facility] [address] [place], [place] [id number] Glenn Gudino M.D. [id number] MCH (RBC) [Entitic mass] 29.8 pg Normal 26.0-34.0 [facility] Comment on above: Performed By: #### 4 5236 ####[facility] [address] [place], [place] [id number] Glenn Gudino M.D. [id number] MCV (RBC) [Entitic vol] 90.9 fL Normal 80.0-100.0 [facility] Comment on above: Performed By: #### 4 5218 ####[facility] [address] [place], [place] [id number] Glenn Gudino M.D. [id number] MEAN CORPUSCULAR HEMOGLOBIN CONC 32.7 g/dL Normal 31.0-37.0 [facility] Comment on above: Performed By: #### 4 5218 ####[facility] [address] [place], [place] [id number] Glenn Gudino M.D. [id number] Platelet mean volume (Bld) [Entitic vol] 11.2 fL Normal 9.4-12.4 [facility] Comment on above: Performed By: #### 4 5218 ####[facility] [address] [place] [address] Glenn Gudino M.D. [id number] Platelets (Bld) [#/Vol] 130 10*3/uL Low 150-400 [facility] Comment on above: Performed By: #### 4 5218 ####[facility] [address] [place], [place] [address] lGenn Gudino M.D. [id number] RBC (Bld) [#/Vol] 2.42 10*6/uL Low 4.00-5.20 [facility] Comment on above: Performed By: #### 4 5218 ####[facility] [address] [place] [address] 76[address] Glenn Gudino M.D. [id number] WBC (Bld) [#/Vol] 8.26 10*3/uL Normal 4.50-11.00 [facility] Comment on above: Performed By: #### 4 5218 ####[facility] [address] [place], [place] [id number] Glenn Gudino M.D. [id number] IRONon 01-28-2024 Iron [Mass/Vol] 49 ug/dL Normal 30-160 [facility] Comment on above: Performed By: #### 4 6039 ####[facility] [address] [place], [place] [address] Glenn Gudino M.D. [id number] Performed By: #### 4 7645 ####[facility] [address] [place], [place] [address] Glenn Gudino M.D. [id number] IRON STUDY WITH FERRITINon 0 01-28-2024 Ferritin [Mass/Vol] 3753 ng/mL High 13-150 [facility] Comment on above: Performed By: #### 4 7645 ####[facility] [address] [place], [place] [address] Glenn Gudino M.D. [id number] IRON SATURATION 70 % High 20-50 [facility] Comment on above: Performed By: #### 4 7645 ####[facility] [address] [place], [place] [address] Glenn Gudino M.D. [id number] TIBC (CALCULATED) 70 mcg/dL Low 225-430 [facility] Comment on above: Performed By: #### 4 7645 ####[facility] [address] [place], [place] [address] Glenn Gudino M.D. [id number] MAGNESIUM LEVELon 01-28-2024 Magnesium [Mass/Vol] 2.2 mg/dL Normal 1.6-2.4 [facility] Comment on above: Performed By: #### 4 6109 ####[facility] [address] [place], [place] [address] Glenn Gudino M.D. [id number] POC GLUCOSE - RALSon 024 Glucose [Mass/Vol] 119 mg/dL High 65-[address] [facility] Comment on above: Performed By: #### 4 6932 ####[facility] [address] [place] [address] [id number] [facility] Glucose [Mass/Vol] 128 mg/dL High 65-[address] [facility] Comment on above: Performed By: #### 4 6923 ####[facility] [address] [place] [address] [id number] [facility] Glucose [Mass/Vol] 123 mg/dL High 65-[address] [facility] Comment on above: Performed By: #### 4 6988 ####[facility] [address] [place] [address] [id number] [facility] Glucose [Mass/Vol] 114 mg/dL High 65- [facility] Comment on above: Performed By: #### 4 6962 ####[facility] [address] [place] [address] [id number] [facility] Glucose [Mass/Vol] 65 mg/dL Normal 65-[address] [facility] Comment on above: Performed By: #### 4 6922 ####[facility] [address] [place] [address] [id number] [facility] Glucose [Mass/Vol] 85 mg/dL Normal -[address] [place] [address] Comment on above: Performed By: #### 4 6926 ####[facility] [address] [place] [address] [id number] [facility] Glucose [Mass/Vol] 126 mg/dL High 65-[address] [place] [address] Comment on above: Performed By: #### 4 6954 ####[facility] [address] [place] [address] [id number] [facility] RENAL FUNCTION PANELon 01-27 Albumin [Mass/Vol] 1.6 g/dL Low 3.2-5.[address] [facility] Comment on above: Order Comment: [facility] has implemented the eGFR calculation approach that does not have a coefficient for race that conforms to the NKF-ASN Task Force Recommendations. Performed By: #### 4 6449 ####[facility] [address] [place] [address] Glenn Gudino M.D. [id number] Anion gap [Moles/Vol] 12 mmol/L Normal 10-20 [facility] Comment on above: Order Comment: [facility] has implemented the eGFR calculation approach that does not have a coefficient for race that conforms to the NKF-ASN Task Force Recommendations. Performed By: #### 4 6449 ####[facility] [address] [place] [address] 15453 Glenn Gudino M.D. [id number] Calcium [Mass/Vol] 7.2 mg/dL Low 8.4-10.[address] [facility] Comment on above: Order Comment: [facility] has implemented the eGFR calculation approach that does not have a coefficient for race that conforms to the NKF-ASN Task Force Recommendations. Performed By: #### 4 6449 ####[facility] [address] [place] [address] Glenn Gudino M.D. [id number] Chloride [Moles/Vol] 103 mmol/L Normal 98-108 [facility] Comment on above: Order Comment: [facility] has implemented the eGFR calculation approach that does not have a coefficient for race that conforms to the NKF-ASN Task Force Recommendations. Performed By: #### 4 6449 ####[facility] [address] [place] [address] Glenn Gudino M.D. [id number] Creatinine [Mass/Vol] 2.36 mg/dL High 0.60-1.10 [facility] Comment on above: Order Comment: [facility] has implemented the eGFR calculation approach that does not have a coefficient for race that conforms to the NKF-ASN Task Force Recommendations. Performed By: #### 4 6449 ####[facility] [address] [place], [place] [id number] Glenn Gudino M.D. [id number] EGFR 23 mL/min/1.73 m2 Low >=60 [facility] Comment on above: Order Comment: [facility] has implemented the eGFR calculation approach that does not have a coefficient for race that conforms to the NKF-ASN Task Force Recommendations. Result Comment: Joi mated GFR was calculated using the 2020 CKD-EPI creatinine equation. Performed By: #### 4 6449 ####[facility] [address] [place], [place] [id number] Glenn Gudino M.D. [id number] Glucose [Mass/Vol] 120 mg/dL High 65-[address] [facility] Comment on above: Order Comment: [facility] has implemented the eGFR calculation approach that does not have a coefficient for race that conforms to the NKF-ASN Task Force Recommendations. Performed By: #### 4 6449 ####[facility] [address] [place], [place] [id number] Glenn Gudino M.D. [id number] HCO3 (Bld) [Moles/Vol] 24 mmol/L Normal 21-32 [facility] Comment on above: Order Comment: [facility] has implemented the eGFR calculation approach that does not have a coefficient for race that conforms to the NKF-ASN Task Force Recommendations. Performed By: #### 4 6449 ####[facility] [address] [place], [place] [id number] Glenn Gudino M.D. [id number] Phosphate [Mass/Vol] 3.1 mg/dL Normal 2.8-4.1 [facility] Comment on above: Order Comment: [facility] has implemented the eGFR calculation approach that does not have a coefficient for race that conforms to the NKF-ASN Task Force Recommendations. Performed By: #### 4 6449 ####[facility] [address] [place], [place] [id number] Glenn Gudino M.D. [id number] Potassium [Moles/Vol] 4.8 mmol/L Normal 3.5-5.1 [facility] Comment on above: Order Comment: [facility] has implemented the eGFR calculation approach that does not have a coefficient for race that conforms to the NKF-ASN Task Force Recommendations. Performed By: #### 4 6449 ####[facility] [address] [place], [place] [id number] Glenn Gudino M.D. [id number] Sodium [Moles/Vol] 134 mmol/L Low 135-[address] [facility] Comment on above: Order Comment: [facility] has implemented the eGFR calculation approach that does not have a coefficient for race that conforms to the NKF-ASN Task Force Recommendations. Performed By: #### 4 6449 ####[facility] [address] [place], [place] [id number] Glenn Gudino M.D. [id number] Urea nitrogen [Mass/Vol] 34 mg/dL High 8-25 [facility] Comment on above: Order Comment: [facility] has implemented the eGFR calculation approach that does not have a coefficient for race that conforms to the NKF-ASN Task Force Recommendations. Performed By: #### 4 6449 ####[facility] [address] [place] [address] 806[address] Glenn Gudino M.D. [id number] Urea nitrogen/Creatinine [Mass ratio] 14.4 mg/mg Normal 10.0-20.0 [facility] Comment on above: Order Comment: [facility] has implemented the eGFR calculation approach that does not have a coefficient for race that conforms to the NKF-ASN Task Force Recommendations. Performed By: #### 4 6449 ####[facility] [address] [place], [place] [id number] Glenn Gudino M.D. [id number] Albumin [Mass/Vol] 1.6 g/dL Low 3.2-5.[address] [facility] Comment on above: Order Comment: [facility] has implemented the eGFR calculation approach that does not have a coefficient for race that conforms to the NKF-ASN Task Force Recommendations. Performed By: #### 4 6449 ####[facility] [address] [place] [address] 279[address] Glenn Gudino M.D. [id number] Anion gap [Moles/Vol] 13 mmol/L Normal 10-20 [facility] Comment on above: Order Comment: [facility] has implemented the eGFR calculation approach that does not have a coefficient for race that conforms to the NKF-ASN Task Force Recommendations. Performed By: #### 4 6449 ####[facility] [address] [place] [address] 21437 Glenn Gudino M.D. [id number] Calcium [Mass/Vol] 7.9 mg/dL Low 8.4-10.[address] [facility] Comment on above: Order Comment: [facility] has implemented the eGFR calculation approach that does not have a coefficient for race that conforms to the NKF-ASN Task Force Recommendations. Performed By: #### 4 6449 ####[facility] [address] [place] [address] 8[address] Glenn Gudino M.D. [id number] Chloride [Moles/Vol] 104 mmol/L Normal 98-108 [facility] Comment on above: Order Comment: [facility] has implemented the eGFR calculation approach that does not have a coefficient for race that conforms to the NKF-ASN Task Force Recommendations. Performed By: #### 4 6449 ####[facility] [address] [place] [address] 68871 Glenn Gudino M.D. [id number] Creatinine [Mass/Vol] 2.07 mg/dL High 0.60-1.10 [facility] Comment on above: Order Comment: [facility] has implemented the eGFR calculation approach that does not have a coefficient for race that conforms to the NKF-ASN Task Force Recommendations. Performed By: #### 4 6449 ####[facility] [address] [place] [address] 01090 Glenn Gudino M.D. [id number] EGFR 27 mL/min/1.73 m2 Low >=60 [facility] Comment on above: Order Comment: [facility] has implemented the eGFR calculation approach that does not have a coefficient for race that conforms to the NKF-ASN Task Force Recommendations. Result Comment: Joi mated GFR was calculated using the 2020 CKD-EPI creatinine equation. Performed By: #### 4 6449 ####[facility] [address] [place] [address] 53108 Glenn Gudino M.D. [id number] Glucose [Mass/Vol] 120 mg/dL High 65-[address] [facility] Comment on above: Order Comment: [facility] has implemented the eGFR calculation approach that does not have a coefficient for race that conforms to the NKF-ASN Task Force Recommendations. Performed By: #### 4 6449 ####[facility] [address] [place] [address] 6[address]27 Glenn Gudino M.D. [id number] HCO3 (Bld) [Moles/Vol] 24 mmol/L Normal 21-32 [facility] Comment on above: Order Comment: [facility] has implemented the eGFR calculation approach that does not have a coefficient for race that conforms to the NKF-ASN Task Force Recommendations. Performed By: #### 4 6449 ####[facility] [address] [place] [address] 27566 Glenn Gudino M.D. [id number] Phosphate [Mass/Vol] 3.2 mg/dL Normal 2.8-4.1 [facility] Comment on above: Order Comment: [facility] has implemented the eGFR calculation approach that does not have a coefficient for race that conforms to the NKF-ASN Task Force Recommendations. Performed By: #### 4 6449 ####[facility] [address] [place] [address] 85656 Glenn Gudino M.D. [id number] Potassium [Moles/Vol] 4.9 mmol/L Normal 3.5-5.1 [facility] Comment on above: Order Comment: [facility] has implemented the eGFR calculation approach that does not have a coefficient for race that conforms to the NKF-ASN Task Force Recommendations. Result Comment: Slig htly Hemolyzed Performed By: #### 4 6449 ####[facility] [address] [place] [address] 37[address] Glenn Gudino M.D. [id number] Sodium [Moles/Vol] 136 mmol/L Normal 135-[address] [facility] Comment on above: Order Comment: [facility] has implemented the eGFR calculation approach that does not have a coefficient for race that conforms to the NKF-ASN Task Force Recommendations. Performed By: #### 4 6449 ####[facility] [address] [place] [address] 18109 Glenn Gudino M.D. [id number] Urea nitrogen [Mass/Vol] 29 mg/dL High 8-25 [facility] Comment on above: Order Comment: [facility] has implemented the eGFR calculation approach that does not have a coefficient for race that conforms to the NKF-ASN Task Force Recommendations. Performed By: #### 4 6449 ####[facility] [address] [place] [address] 44[address] Glenn Gudion M.D. [id number] Urea nitrogen/Creatinine [Mass ratio] 14.0 mg/mg Normal 10.0-20.0 [facility] Comment on above: Order Comment: [facility] has implemented the eGFR calculation approach that does not have a coefficient for race that conforms to the NKF-ASN Task Force Recommendations. Performed By: #### 4 6449 ####[facility] [address] [place] [address] 62028 Glenn Gudino M.D. [id number] Albumin [Mass/Vol] 1.6 g/dL Low 3.2-5.[address] [facility] Comment on above: Order Comment: [facility] has implemented the eGFR calculation approach that does not have a coefficient for race that conforms to the NKF-ASN Task Force Recommendations. Performed By: #### 4 6449 ####[facility] [address] [place], [place] [id number] Glenn Gudino M.D. [id number] Anion gap [Moles/Vol] 14 mmol/L Normal 10-20 [facility] Comment on above: Order Comment: [facility] has implemented the eGFR calculation approach that does not have a coefficient for race that conforms to the NKF-ASN Task Force Recommendations. Performed By: #### 4 6449 ####[facility] [address] [place], [place] [id number] Glenn Gudino M.D. [id number] Calcium [Mass/Vol] 7.4 mg/dL Low 8.4-10.[address] [facility] Comment on above: Order Comment: [facility] has implemented the eGFR calculation approach that does not have a coefficient for race that conforms to the NKF-ASN Task Force Recommendations. Performed By: #### 4 6449 ####[facility] [address] [place] [address] 74475 Glenn Gudino M.D. [id number] Chloride [Moles/Vol] 105 mmol/L Normal 98-108 [facility] Comment on above: Order Comment: [facility] has implemented the eGFR calculation approach that does not have a coefficient for race that conforms to the NKF-ASN Task Force Recommendations. Performed By: #### 4 6449 ####[facility] [address] [place] [address] 62456 Glenn Gudino M.D. [id number] Creatinine [Mass/Vol] 1.94 mg/dL High 0.60-1.10 [facility] Comment on above: Order Comment: [facility] has implemented the eGFR calculation approach that does not have a coefficient for race that conforms to the NKF-ASN Task Force Recommendations. Performed By: #### 4 6449 ####[facility] [address] [place] [address] 23354 Glenn Gudino M.D. [id number] EGFR 29 mL/min/1.73 m2 Low >=60 [facility] Comment on above: Order Comment: [facility] has implemented the eGFR calculation approach that does not have a coefficient for race that conforms to the NKF-ASN Task Force Recommendations. Result Comment: Joi mated GFR was calculated using the 2020 CKD-EPI creatinine equation. Performed By: #### 4 6449 ####[facility] [address] [place] [address] 39313 Glenn Gudino M.D. [id number] Glucose [Mass/Vol] 125 mg/dL High 65-[address] [facility] Comment on above: Order Comment: [facility] has implemented the eGFR calculation approach that does not have a coefficient for race that conforms to the NKF-ASN Task Force Recommendations. Performed By: #### 4 6449 ####[facility] [address] [place] [address] 91049 Glenn Gudino M.D. [id number] HCO3 (Bld) [Moles/Vol] 24 mmol/L Normal 21-32 [facility] Comment on above: Order Comment: [facility] has implemented the eGFR calculation approach that does not have a coefficient for race that conforms to the NKF-ASN Task Force Recommendations. Performed By: #### 4 6449 ####[facility] [address] [place] [address] 40897 Glenn Gudino M.D. [id number] Phosphate [Mass/Vol] 3.5 mg/dL Normal 2.8-4.1 [facility] Comment on above: Order Comment: [facility] has implemented the eGFR calculation approach that does not have a coefficient for race that conforms to the NKF-ASN Task Force Recommendations. Performed By: #### 4 6449 ####[facility] [address] [place] [address] 69139 Glenn Gudino M.D. [id number] Potassium [Moles/Vol] 5.2 mmol/L High 3.5-5.1 [facility] Comment on above: Order Comment: [facility] has implemented the eGFR calculation approach that does not have a coefficient for race that conforms to the NKF-ASN Task Force Recommendations. Result Comment: Slig htly Hemolyzed Performed By: #### 4 6449 ####[facility] [address] [place] [address] 92235 Glenn Gudino M.D. [id number] Sodium [Moles/Vol] 138 mmol/L Normal 135-[address] [facility] Comment on above: Order Comment: [facility] has implemented the eGFR calculation approach that does not have a coefficient for race that conforms to the NKF-ASN Task Force Recommendations. Performed By: #### 4 6449 ####[facility] [address] [place] [address] 62212 Glenn Gudino M.D. [id number] Urea nitrogen [Mass/Vol] 29 mg/dL High 8-25 [facility] Comment on above: Order Comment: [facility] has implemented the eGFR calculation approach that does not have a coefficient for race that conforms to the NKF-ASN Task Force Recommendations. Performed By: #### 4 6449 ####[facility] [address] [place] [address] 29193 Glenn Gudino M.D. [id number] Urea nitrogen/Creatinine [Mass ratio] 14.9 mg/mg Normal 10.0-20.0 [facility] Comment on above: Order Comment: [facility] has implemented the eGFR calculation approach that does not have a coefficient for race that conforms to the NKF-ASN Task Force Recommendations. Performed By: #### 4 6449 ####[facility] [address] [place], [place] [id number] Glenn Gudino M.D. [id number] RETICULOCYTEon 01-28-2024 IMMATURE RETIC FRACT 21.2 % High 2.3-15.9 [facility] Comment on above: Performed By: #### 4 6452 ####[facility] [address] [place] [address] Glenn Gudino M.D. [id number] RETIC HGB EQUIVALENT 24.7 PG Low 27.7-38.2 [facility] Comment on above: Result Comment: The cut-off for RET-He established in our institution is 27.7-38.2 pg/RBC. A value below this range is highly suggestive of iron deficiency. At values above 38.2 pg/RBC, patients are unlikely to respond to additional iron therapy. Performed By: #### 4 6452 ####[facility] [address] [place], [place] [id number] Glenn Gudino M.D. [id number] RETICULOCYTE ABSOLUTE COUNT 0.055 M/mcL Normal 0.025-0.07 0 [facility] Comment on above: Performed By: #### 4 6452 ####[facility] [address] [place], [place] [id number] Glenn Gudino M.D. [id number] RETICULOCYTE COUNT PCT 2.3 % Normal [facility] Comment on above: Performed By: #### 4 6452 ####[facility] [address] [place], [place] [address] Glenn Gudino M.D. [id number] TRIGLYCERIDESon 01-28-2024 Triglyceride [Mass/Vol] 95 mg/dL Normal 30-150 [facility] Comment on above: Result Comment: [place] [employer] Cholesterol Education Program Guidelines: TriglycerideNormal: <150 mg/dLBorderline High: 150-199 mg/dLHigh: 200-499 mg/dLVery High: greater than or equal to 500 mg/dL Performed By: #### 4 6606 ####[facility] [address] [place] [address] Glenn Gudino M.D. [id number] TRIGLYCERIDES, BODY FLUIDSon 01-28-2024 TRIGLYCERIDES FLUID 333 mg/dL [facility] Comment on above: Order Comment: No es tablished reference range. Performed By: #### 4 7057 ####[facility] [address] [place] [address] Glenn Gudino M.D. [id number] TYPE AND SCREENon 01-28-2024 TYPE AND SCREEN ABORH: O Positive AB SCREEN: Positive EXPIRATION DATE: 01/31/2024 23:59 EST [facility] Comment on above: Performed By: #### 4 6619 ####[facility] [address] [place] [address] Nurys Oneill MD [id number] RMHTS XR ABDOMEN /KUB/FLAT PLATE/1 VIEWon 01-28-2024 XR ABDOMEN /KUB/FLAT PLATE/1 VIEW [facility] Comment on above: Order Comment: Injur y/Trauma or Illness?:Illness/OtherHow long have you had these symptoms (acute/chronic)?:UnknownReason for exam?:small bore manipulatedHistory of cancer?:uSurgeries, chemotherapy, or radiation?:uType of Exam?:UnknownAdditional signs and symptoms?:small bore manipulated XR ABDOMEN /KUB/FLAT PLATE/1 VIEW [facility] Comment on above: Order Comment: Injur y/Trauma or Illness?:Illness/OtherHow long have you had these symptoms (acute/chronic)?:UnknownReason for exam?:small bore NGHistory of cancer?:uSurgeries, chemotherapy, or radiation?:uType of Exam?:UnknownAdditional signs and symptoms?:small bore NG XR CHEST PA/APon 01-28-2024 XR CHEST PA/AP [facility] Comment on above: Order Comment: Injur y/Trauma or Illness?:Illness/OtherHow long have you had these symptoms (acute/chronic)?:AcuteReason for exam?:ct/ptxHistory of cancer?:uSurgeries, chemotherapy, or radiation?:uType of Exam?:OngoingAdditional signs and symptoms?:- APTTon 01-27-2024 aPTT Coag (Bld) [Time] 60 s High 23-34 [facility] Comment on above: Order Comment: Thera peutic range for APTT's is 68 - 104 seconds Result Comment: Resu lts checked. Performed By: #### 4 5113 ####[facility] [address] [place] [address] Glenn Gudino M.D. [id number] APTT HEPARIN COVERAGEon 12-29 aPTT Coag (Bld) [Time] 86 s High 23-34 [facility] Comment on above: Order Comment: Thera peutic range for APTT's is 68 - 104 seconds Result Comment: Resu lts checked. Performed By: #### 4 6848 ####[facility] [address] [place] [address] Glenn Gudino M.D. [id number] aPTT Coag (Bld) [Time] 67 s High 23-34 [facility] Comment on above: Order Comment: Thera peutic range for APTT's is 68 - 104 seconds Performed By: #### 4 6848 ####[facility] [address] [place], [place] [id number] Glenn Gudino M.D. [id number] aPTT Coag (Bld) [Time] 71 s High 23-34 [facility] Comment on above: Order Comment: Thera peutic range for APTT's is 68 - 104 seconds Performed By: #### 4 6809 ####[facility] [address] [place], [place] [id number] Glenn Gudino M.D. [id number] BASIC METABOLIC PANELon 12-29 Anion gap [Moles/Vol] 14 mmol/L Normal 10-20 [facility] Comment on above: Order Comment: [facility] has implemented the eGFR calculation approach that does not have a coefficient for race that conforms to the NKF-ASN Task Force Recommendations. Performed By: #### 4 6124 ####[facility] [address] [place] [address] 40610 Glenn Gudino M.D. [id number] Calcium [Mass/Vol] 7.9 mg/dL Low 8.4-10.[address] [facility] Comment on above: Order Comment: [facility] has implemented the eGFR calculation approach that does not have a coefficient for race that conforms to the NKF-ASN Task Force Recommendations. Performed By: #### 4 6124 ####[facility] [address] [place] [address] 19039 Glenn Gudino M.D. [id number] Chloride [Moles/Vol] 103 mmol/L Normal 98-108 [facility] Comment on above: Order Comment: [facility] has implemented the eGFR calculation approach that does not have a coefficient for race that conforms to the NKF-ASN Task Force Recommendations. Performed By: #### 4 6124 ####[facility] [address] [place] [address] 65581 Glenn Gudino M.D. [id number] Creatinine [Mass/Vol] 2.21 mg/dL High 0.60-1.10 [facility] Comment on above: Order Comment: [facility] has implemented the eGFR calculation approach that does not have a coefficient for race that conforms to the NKF-ASN Task Force Recommendations. Performed By: #### 4 6124 ####[facility] [address] [place] [address] 41803 Glenn Gudino M.D. [id number] EGFR 25 mL/min/1.73 m2 Low >=60 [facility] Comment on above: Order Comment: [facility] has implemented the eGFR calculation approach that does not have a coefficient for race that conforms to the NKF-ASN Task Force Recommendations. Result Comment: Joi mated GFR was calculated using the 2020 CKD-EPI creatinine equation. Performed By: #### 4 6124 ####[facility] [address] [place], [place] [id number] Glenn Gudino M.D. [id number] Glucose [Mass/Vol] 145 mg/dL High 65-[address] [facility] Comment on above: Order Comment: [facility] has implemented the eGFR calculation approach that does not have a coefficient for race that conforms to the NKF-ASN Task Force Recommendations. Performed By: #### 4 6124 ####[facility] [address] [place], [place] [id number] Glenn Gudino M.D. [id number] HCO3 (Bld) [Moles/Vol] 24 mmol/L Normal 21-32 [facility] Comment on above: Order Comment: [facility] has implemented the eGFR calculation approach that does not have a coefficient for race that conforms to the NKF-ASN Task Force Recommendations. Performed By: #### 4 6124 ####[facility] [address] [place] [address] 35343 Glenn Gudino M.D. [id number] Potassium [Moles/Vol] 4.7 mmol/L Normal 3.5-5.1 [facility] Comment on above: Order Comment: [facility] has implemented the eGFR calculation approach that does not have a coefficient for race that conforms to the NKF-ASN Task Force Recommendations. Performed By: #### 4 6124 ####[facility] [address] [place] [address] 14852 Glenn Gudino M.D. [id number] Sodium [Moles/Vol] 136 mmol/L Normal 135-[address] [facility] Comment on above: Order Comment: [facility] has implemented the eGFR calculation approach that does not have a coefficient for race that conforms to the NKF-ASN Task Force Recommendations. Performed By: #### 4 6124 ####[facility] [address] [place] [address] 32352 Glenn Gudino M.D. [id number] Urea nitrogen [Mass/Vol] 30 mg/dL High 8-25 [facility] Comment on above: Order Comment: [facility] has implemented the eGFR calculation approach that does not have a coefficient for race that conforms to the NKF-ASN Task Force Recommendations. Performed By: #### 4 6124 ####[facility] [address] [place] [address] 29870 Glenn Gudino M.D. [id number] Urea nitrogen/Creatinine [Mass ratio] 13.6 mg/mg Normal 10.0-20.0 [facility] Comment on above: Order Comment: [facility] has implemented the eGFR calculation approach that does not have a coefficient for race that conforms to the NKF-ASN Task Force Recommendations. Performed By: #### 4 6124 ####[facility] [address] [place] [address] 03334 Glenn Gudino M.D. [id number] Anion gap [Moles/Vol] 18 mmol/L Normal 10-20 [facility] Comment on above: Order Comment: [facility] has implemented the eGFR calculation approach that does not have a coefficient for race that conforms to the NKF-ASN Task Force Recommendations. Performed By: #### 4 6124 ####[facility] [address] [place] [address] 33704 Glenn Gudino M.D. [id number] Calcium [Mass/Vol] 7.4 mg/dL Low 8.4-10.[address] [facility] Comment on above: Order Comment: [facility] has implemented the eGFR calculation approach that does not have a coefficient for race that conforms to the NKF-ASN Task Force Recommendations. Performed By: #### 4 6124 ####[facility] [address] [place] [address] 96124 Glenn Gudino M.D. [id number] Chloride [Moles/Vol] 104 mmol/L Normal 98-108 [facility] Comment on above: Order Comment: [facility] has implemented the eGFR calculation approach that does not have a coefficient for race that conforms to the NKF-ASN Task Force Recommendations. Performed By: #### 4 6124 ####[facility] [address] [place], [place] [id number] Glenn Gudino M.D. [id number] Creatinine [Mass/Vol] 2.71 mg/dL High 0.60-1.10 [facility] Comment on above: Order Comment: [facility] has implemented the eGFR calculation approach that does not have a coefficient for race that conforms to the NKF-ASN Task Force Recommendations. Performed By: #### 4 6124 ####[facility] [address] [place], [place] [id number] Glenn Gudino M.D. [id number] EGFR 19 mL/min/1.73 m2 Low >=60 [facility] Comment on above: Order Comment: [facility] has implemented the eGFR calculation approach that does not have a coefficient for race that conforms to the NKF-ASN Task Force Recommendations. Result Comment: Joi mated GFR was calculated using the 2020 CKD-EPI creatinine equation. Performed By: #### 4 6124 ####[facility] [address] [place], [place] [id number] Glenn Gudino M.D. [id number] Glucose [Mass/Vol] 89 mg/dL Normal 65-[address] [facility] Comment on above: Order Comment: [facility] has implemented the eGFR calculation approach that does not have a coefficient for race that conforms to the NKF-ASN Task Force Recommendations. Performed By: #### 4 6124 ####[facility] [address] [place], [place] [id number] Glenn Gudino M.D. [id number] HCO3 (Bld) [Moles/Vol] 22 mmol/L Normal 21-32 [facility] Comment on above: Order Comment: [facility] has implemented the eGFR calculation approach that does not have a coefficient for race that conforms to the NKF-ASN Task Force Recommendations. Performed By: #### 4 6124 ####[facility] [address] [place] [address] 05562 Glenn Gudino M.D. [id number] Potassium [Moles/Vol] 5.0 mmol/L Normal 3.5-5.1 [facility] Comment on above: Order Comment: [facility] has implemented the eGFR calculation approach that does not have a coefficient for race that conforms to the NKF-ASN Task Force Recommendations. Performed By: #### 4 6124 ####[facility] [address] [place] [address] 58156 Glenn Gudino M.D. [id number] Sodium [Moles/Vol] 139 mmol/L Normal 135-[address] [facility] Comment on above: Order Comment: [facility] has implemented the eGFR calculation approach that does not have a coefficient for race that conforms to the NKF-ASN Task Force Recommendations. Performed By: #### 4 6118 ####[facility] [address] [place] [address] 89702 Glenn Gudino M.D. [id number] Urea nitrogen [Mass/Vol] 37 mg/dL High 8-25 [facility] Comment on above: Order Comment: [facility] has implemented the eGFR calculation approach that does not have a coefficient for race that conforms to the NKF-ASN Task Force Recommendations. Performed By: #### 4 6104 ####[facility] [address] [place] [address] 61114 Glenn Gudino M.D. [id number] Urea nitrogen/Creatinine [Mass ratio] 13.7 mg/mg Normal 10.0-20.0 [facility] Comment on above: Order Comment: [facility] has implemented the eGFR calculation approach that does not have a coefficient for race that conforms to the NKF-ASN Task Force Recommendations. Performed By: #### 4 6124 ####[facility] [address] [place] [address] Glenn Gudino M.D. [id number] CALCIUM, IONIZEDon CALCIUM IONIZED 4.6 mg/dL Normal 4.5-5.3 [facility] Comment on above: Order Comment: Serum , non-CRRT source. Performed By: #### 4 5190 ####[facility] [address] [place] [address] Glenn Gudino M.D. [id number] CALCIUM IONIZED 4.4 mg/dL Low 4.5-5.3 [facility] Comment on above: Order Comment: Serum , non-CRRT source. Performed By: #### 4 5190 ####[facility] [address] [place] [address] Glenn Gudino M.D. [id number] CALCIUM IONIZED 4.4 mg/dL Low 4.5-5.3 [facility] Comment on above: Order Comment: Serum , non-CRRT source. Performed By: #### 4 5190 ####[facility] [address] [place] [address] Glenn Gudino M.D. [id number] CALCIUM IONIZED 4.4 mg/dL Low 4.5-5.3 [facility] Comment on above: Order Comment: Serum , non-CRRT source. Performed By: #### 4 5190 ####[facility] [address] [place], [place] [id number] Glenn Gudino M.D. [id number] CBCon 01-27-2024 AUTO NRBC 0.0 % Normal [facility] Comment on above: Performed By: #### 4 5218 ####[facility] [address] [place], [place] [id number] Glenn Gudino M.D. [id number] AUTO NRBC ABS COUNT 0.00 K/mcL Normal 0.00-0.00 [facility] Comment on above: Performed By: #### 4 5218 ####[facility] [address] [place] [address] Glenn Gudino M.D. [id number] Erythrocyte distribution width (RBC) [Ratio] 16.9 % High 11.6-14.8 [facility] Comment on above: Performed By: #### 4 5218 ####[facility] [address] [place] [address] Glenn Gudino M.D. [id number] Hematocrit (Bld) [Volume fraction] 29.2 % Low 36.0-46.0 [facility] Comment on above: Performed By: #### 4 5218 ####[facility] [address] [place] [address] Glenn Gudino M.D. [id number] Hemoglobin (Bld) [Mass/Vol] 9.7 g/dL Low 12.0-16.0 [facility] Comment on above: Performed By: #### 4 5218 ####[facility] [address] [place], [place] [id number] Glenn Gudino M.D. [id number] MCH (RBC) [Entitic mass] 29.5 pg Normal 26.0-34.0 [facility] Comment on above: Performed By: #### 4 5218 ####[facility] [address] [place] [address] Glenn Gudino M.D. [id number] MCV (RBC) [Entitic vol] 88.8 fL Normal 80.0-100.0 [facility] Comment on above: Performed By: #### 4 5218 ####[facility] [address] [place] [address] Glenn Gudino M.D. [id number] MEAN CORPUSCULAR HEMOGLOBIN CONC 33.2 g/dL Normal 31.0-37.0 [facility] Comment on above: Performed By: #### 4 5218 ####[facility] [address] [place], [place] [id number] Glenn Gudino M.D. [id number] Platelet mean volume (Bld) [Entitic vol] 11.3 fL Normal 9.4-12.4 [facility] Comment on above: Performed By: #### 4 5218 ####[facility] [address] [place], [place] [id number] Glenn Gudino M.D. [id number] Platelets (Bld) [#/Vol] 106 10*3/uL Low 150-400 [facility] Comment on above: Result Comment: Repe ated verified Performed By: #### 4 5218 ####[facility] [address] [place], [place] [id number] Glenn Gudino M.D. [id number] RBC (Bld) [#/Vol] 3.29 10*6/uL Low 4.00-5.20 [facility] Comment on above: Performed By: #### 4 5218 ####[facility] [address] [place], [place] [id number] Glenn Gudino M.D. [id number] WBC (Bld) [#/Vol] 17.82 10*3/uL High 4.50-11.00 [facility] Comment on above: Performed By: #### 4 5218 ####[facility] [address] [place], [place] [id number] Glenn Gudino M.D. [id number] MAGNESIUM LEVELon 01-27-2024 Magnesium [Mass/Vol] 2.2 mg/dL Normal 1.6-2.4 [facility] Comment on above: Performed By: #### 4 6109 ####[facility] [address] [place], [place] [id number] Glenn Gudino M.D. [id number] Magnesium [Mass/Vol] 2.2 mg/dL Normal 1.6-2.4 [facility] Comment on above: Performed By: #### 4 6109 ####[facility] [address] [place] [address] Glenn Gudino M.D. [id number] Magnesium [Mass/Vol] 2.1 mg/dL Normal 1.6-2.4 [facility] Comment on above: Performed By: #### 4 6109 ####[facility] [address] [place] [address] Glenn Gudino M.D. [id number] Magnesium [Mass/Vol] 2.2 mg/dL Normal 1.6-2.4 [facility] Comment on above: Performed By: #### 4 6109 ####[facility] [address] [place] [address] Glenn Gudino M.D. [id number] POC ARTERIAL BLOOD GAS PANEL [facility]2024 BASE EXCESS, ARTERIAL -0.1 Normal -2.0-2.0 [facility] Comment on above: Performed By: #### 4 8716 ####[facility] [address] [place] [address] [id number] [facility] CALCIUM IONIZED 4.4 mg/dL Low 4.5-5.3 [facility] Comment on above: Performed By: #### 4 8716 ####[facility] [address] [place] [address] [id number] [facility] CARBOXYHEMOGLOBIN 2.0 % of total Hb High <=1.5 [facility] Comment on above: Result Comment: Refe rence Ranges:Suburban Non-smokers: <1.5%Smokers: 1.5-5.0%Heavy Smokers: 5.0-9.0% Performed By: #### 4 8716 ####[facility] [address] [place] [address] [id number] [facility] Chloride [Moles/Vol] 103 mmol/L Normal 98-108 [facility] Comment on above: Performed By: #### 4 8716 ####[facility] [address] [place] [address] [id number] [facility] Glucose [Mass/Vol] 88 mg/dL Normal 65-[address] [facility] Comment on above: Performed By: #### 4 8716 ####[facility] [address] [place] [address] [id number] [facility] HCO3 (Bld) [Moles/Vol] 24.5 mmol/L Normal 22.0-26.0 [facility] Comment on above: Performed By: #### 4 5516 ####[facility] [address] [place] [address] [id number] [facility] Hematocrit (Bld) [Volume fraction] 29.9 % Low 36.0-46.0 [facility] Comment on above: Performed By: #### 4 5816 ####[facility] [address] [place] [address] [id number] [facility] Hemoglobin (Bld) [Mass/Vol] 9.8 g/dL Low 12.0-16.0 [facility] Comment on above: Performed By: #### 4 4616 ####[facility] [address] [place] [address] [id number] [facility] LACTIC ACID, WHOLE BLOOD 1.1 mmol/L Normal 0.6-2.0 [facility] Comment on above: Performed By: #### 4 5816 ####[facility] [address] [place] [address] [id number] [facility] LITER FLOW 3 Normal [facility] Comment on above: Performed By: #### 4 5540 ####[facility] [address] [place] [address] [id number] [facility] METHEMOGLOBIN < Normal 0.0-2.0 [facility] Comment on above: Performed By: #### 4 8716 ####[facility] [address] [place] [address] [id number] [facility] O2HB 92.7 % Low 94.0-98.0 [facility] Comment on above: Performed By: #### 4 8716 ####[facility] [address] [place] [address] [id number] [facility] Oxygen saturation in Blood 94.8 % Normal 92.0-99.0 [facility] Comment on above: Performed By: #### 4 8716 ####[facility] [address] [place] [address] [id number] [facility] PCO2 ARTERIAL 39.0 mm Hg Normal 35.0-45.0 [facility] Comment on above: Performed By: #### 4 8716 ####[facility] [address] [place] [address] [id number] [facility] PH ARTERIAL 7.41 Normal 7.35-7.45 [facility] Comment on above: Performed By: #### 4 8716 ####[facility] [address] [place] [address] [id number] [facility] PO2 ARTERIAL 72 mm Hg Low 80-100 [facility] Comment on above: Performed By: #### 4 8716 ####[facility] [address] [place] [address] [id number] [facility] Potassium [Moles/Vol] 4.6 mmol/L Normal 3.5-5.1 [facility] Comment on above: Performed By: #### 4 8716 ####[facility] [address] [place] [address] [id number] [facility] Sodium [Moles/Vol] 134 mmol/L Low 135-[address] [facility] Comment on above: Performed By: #### 4 4958 ####[facility] [address] [place] [address] [id number] [facility] POC GLUCOSE - [facility] 024 Glucose [Mass/Vol] 111 mg/dL High [address] [facility] Comment on above: Performed By: #### 4 6951 ####[facility] [address] [place] [address] [id number] [facility] Glucose [Mass/Vol] 155 mg/dL High [facility] Comment on above: Performed By: #### 4 6937 ####[facility] [address] [place] [address] [id number] [facility] Glucose [Mass/Vol] 132 mg/dL High [facility] Comment on above: Performed By: #### 4 6948 ####[facility] [address] [place] [address] [id number] [facility] Glucose [Mass/Vol] 114 mg/dL High [facility] Comment on above: Performed By: #### 4 6949 ####[facility] [address] [place] [address] [id number] [facility] Glucose [Mass/Vol] 109 mg/dL High [facility] Comment on above: Performed By: #### 4 6920 ####[facility] [address] [place] [address] [id number] [facility] Glucose [Mass/Vol] 96 mg/dL Normal - [facility] Comment on above: Performed By: #### 4 8233 ####[facility] [address] [place] [address] [id number] [facility] Glucose [Mass/Vol] 71 mg/dL Normal 65- [facility] Comment on above: Performed By: #### 4 9492 ####[facility] [address] [place] [address] [id number] [facility] RENAL FUNCTION PANELon 01-26 Albumin [Mass/Vol] 1.6 g/dL Low 3.2-5.[address] [facility] Comment on above: Order Comment: [facility] has implemented the eGFR calculation approach that does not have a coefficient for race that conforms to the NKF-ASN Task Force Recommendations. Performed By: #### 4 6449 ####[facility] [address] [place], [place] [id number] Glenn Gudino M.D. [id number] Anion gap [Moles/Vol] 13 mmol/L Normal 10-20 [facility] Comment on above: Order Comment: [facility] has implemented the eGFR calculation approach that does not have a coefficient for race that conforms to the NKF-ASN Task Force Recommendations. Performed By: #### 4 6449 ####[facility] [address] [place], [place] [id number] Glenn Gudino M.D. [id number] Calcium [Mass/Vol] 7.7 mg/dL Low 8.4-10.[address] [facility] Comment on above: Order Comment: [facility] has implemented the eGFR calculation approach that does not have a coefficient for race that conforms to the NKF-ASN Task Force Recommendations. Performed By: #### 4 6449 ####[facility] [address] [place], [place] [address] Glenn Gudino M.D. [id number] Chloride [Moles/Vol] 103 mmol/L Normal 98-108 [facility] Comment on above: Order Comment: [facility] has implemented the eGFR calculation approach that does not have a coefficient for race that conforms to the NKF-ASN Task Force Recommendations. Performed By: #### 4 6449 ####[facility] [address] [place] [address] 79581 Glenn Gudino M.D. [id number] Creatinine [Mass/Vol] 2.09 mg/dL High 0.60-1.10 [facility] Comment on above: Order Comment: [facility] has implemented the eGFR calculation approach that does not have a coefficient for race that conforms to the NKF-ASN Task Force Recommendations. Performed By: #### 4 6449 ####[facility] [address] [place] [address] 10721 Glenn Gudino M.D. [id number] EGFR 27 mL/min/1.73 m2 Low >=60 [facility] Comment on above: Order Comment: [facility] has implemented the eGFR calculation approach that does not have a coefficient for race that conforms to the NKF-ASN Task Force Recommendations. Result Comment: Joi mated GFR was calculated using the 2020 CKD-EPI creatinine equation. Performed By: #### 4 6449 ####[facility] [address] [place] [address] 95786 Glenn Gudino M.D. [id number] Glucose [Mass/Vol] 121 mg/dL High 65-[address] [facility] Comment on above: Order Comment: [facility] has implemented the eGFR calculation approach that does not have a coefficient for race that conforms to the NKF-ASN Task Force Recommendations. Performed By: #### 4 6449 ####[facility] [address] [place] [address] 97[address] Glenn Gudino M.D. [id number] HCO3 (Bld) [Moles/Vol] 24 mmol/L Normal 21-32 [facility] Comment on above: Order Comment: [facility] has implemented the eGFR calculation approach that does not have a coefficient for race that conforms to the NKF-ASN Task Force Recommendations. Performed By: #### 4 6449 ####[facility] [address] [place] [address] 71649 Glenn Gudino M.D. [id number] Phosphate [Mass/Vol] 4.0 mg/dL Normal 2.8-4.1 [facility] Comment on above: Order Comment: [facility] has implemented the eGFR calculation approach that does not have a coefficient for race that conforms to the NKF-ASN Task Force Recommendations. Performed By: #### 4 6449 ####[facility] [address] [place] [address] 43332 Glenn Gudino M.D. [id number] Potassium [Moles/Vol] 4.7 mmol/L Normal 3.5-5.1 [facility] Comment on above: Order Comment: [facility] has implemented the eGFR calculation approach that does not have a coefficient for race that conforms to the NKF-ASN Task Force Recommendations. Performed By: #### 4 6449 ####[facility] [address] [place] [address] 44934 Glenn Gudino M.D. [id number] Sodium [Moles/Vol] 135 mmol/L Normal 135-[address] [facility] Comment on above: Order Comment: [facility] has implemented the eGFR calculation approach that does not have a coefficient for race that conforms to the NKF-ASN Task Force Recommendations. Performed By: #### 4 6449 ####[facility] [address] [place], [place] [address] Glenn Gudino M.D. [id number] Urea nitrogen [Mass/Vol] 29 mg/dL High 8-25 [facility] Comment on above: Order Comment: [facility] has implemented the eGFR calculation approach that does not have a coefficient for race that conforms to the NKF-ASN Task Force Recommendations. Performed By: #### 4 6449 ####[facility] [address] [place], [place] [address] Glenn Gudino M.D. [id number] Urea nitrogen/Creatinine [Mass ratio] 13.9 mg/mg Normal 10.0-20.0 [facility] Comment on above: Order Comment: [facility] has implemented the eGFR calculation approach that does not have a coefficient for race that conforms to the NKF-ASN Task Force Recommendations. Performed By: #### 4 6449 ####[facility] [address] [place], [place] [address] Glenn Gudino M.D. [id number] Albumin [Mass/Vol] 1.7 g/dL Low 3.2-5.[address] [facility] Comment on above: Order Comment: [facility] has implemented the eGFR calculation approach that does not have a coefficient for race that conforms to the NKF-ASN Task Force Recommendations. Performed By: #### 4 6449 ####[facility] [address] [place], [place] [address] Glenn Gudino M.D. [id number] Anion gap [Moles/Vol] 15 mmol/L Normal 10-20 [facility] Comment on above: Order Comment: [facility] has implemented the eGFR calculation approach that does not have a coefficient for race that conforms to the NKF-ASN Task Force Recommendations. Performed By: #### 4 6449 ####[facility] [address] [place], [place] [id number] Glenn Gudino M.D. [id number] Calcium [Mass/Vol] 7.7 mg/dL Low 8.4-10.[address] [facility] Comment on above: Order Comment: [facility] has implemented the eGFR calculation approach that does not have a coefficient for race that conforms to the NKF-ASN Task Force Recommendations. Performed By: #### 4 6449 ####[facility] [address] [place], [place] [id number] Glenn Gudino M.D. [id number] Chloride [Moles/Vol] 103 mmol/L Normal 98-108 [facility] Comment on above: Order Comment: [facility] has implemented the eGFR calculation approach that does not have a coefficient for race that conforms to the NKF-ASN Task Force Recommendations. Performed By: #### 4 6449 ####[facility] [address] [place] [address] 72627 Glenn Gudino M.D. [id number] Creatinine [Mass/Vol] 2.25 mg/dL High 0.60-1.10 [facility] Comment on above: Order Comment: [facility] has implemented the eGFR calculation approach that does not have a coefficient for race that conforms to the NKF-ASN Task Force Recommendations. Performed By: #### 4 6449 ####[facility] [address] [place] [address] 08304 Glenn Gudino M.D. [id number] EGFR 24 mL/min/1.73 m2 Low >=60 [facility] Comment on above: Order Comment: [facility] has implemented the eGFR calculation approach that does not have a coefficient for race that conforms to the NKF-ASN Task Force Recommendations. Result Comment: Joi mated GFR was calculated using the 2020 CKD-EPI creatinine equation. Performed By: #### 4 6449 ####[facility] [address] [place], [place] [id number] Glenn Gudino M.D. [id number] Glucose [Mass/Vol] 122 mg/dL High 65-[address] [facility] Comment on above: Order Comment: [facility] has implemented the eGFR calculation approach that does not have a coefficient for race that conforms to the NKF-ASN Task Force Recommendations. Performed By: #### 4 6449 ####[facility] [address] [place] [address] 02375 Glenn Gudino M.D. [id number] HCO3 (Bld) [Moles/Vol] 24 mmol/L Normal 21-32 [facility] Comment on above: Order Comment: [facility] has implemented the eGFR calculation approach that does not have a coefficient for race that conforms to the NKF-ASN Task Force Recommendations. Performed By: #### 4 6449 ####[facility] [address] [place], [place] [id number] Glenn Gudino M.D. [id number] Phosphate [Mass/Vol] 4.7 mg/dL High 2.8-4.1 [facility] Comment on above: Order Comment: [facility] has implemented the eGFR calculation approach that does not have a coefficient for race that conforms to the NKF-ASN Task Force Recommendations. Performed By: #### 4 6449 ####[facility] [address] [place] [address] Glenn Gudino M.D. [id number] Potassium [Moles/Vol] 5.0 mmol/L Normal 3.5-5.1 [facility] Comment on above: Order Comment: [facility] has implemented the eGFR calculation approach that does not have a coefficient for race that conforms to the NKF-ASN Task Force Recommendations. Performed By: #### 4 6449 ####[facility] [address] [place] [address] 02529 Glenn Gudino M.D. [id number] Sodium [Moles/Vol] 137 mmol/L Normal 135-[address] [facility] Comment on above: Order Comment: [facility] has implemented the eGFR calculation approach that does not have a coefficient for race that conforms to the NKF-ASN Task Force Recommendations. Performed By: #### 4 6449 ####[facility] [address] [place] [address] 48814 Glenn Gudino M.D. [id number] Urea nitrogen [Mass/Vol] 30 mg/dL High 8-25 [facility] Comment on above: Order Comment: [facility] has implemented the eGFR calculation approach that does not have a coefficient for race that conforms to the NKF-ASN Task Force Recommendations. Performed By: #### 4 6449 ####[facility] [address] [place] [address] 61972 Glenn Gudino M.D. [id number] Urea nitrogen/Creatinine [Mass ratio] 13.3 mg/mg Normal 10.0-20.0 [facility] Comment on above: Order Comment: [facility] has implemented the eGFR calculation approach that does not have a coefficient for race that conforms to the NKF-ASN Task Force Recommendations. Performed By: #### 4 6449 ####[facility] [address] [place] [address] 59846 Glenn Gudino M.D. [id number] Albumin [Mass/Vol] 1.8 g/dL Low 3.2-5.[address] [facility] Comment on above: Order Comment: [facility] has implemented the eGFR calculation approach that does not have a coefficient for race that conforms to the NKF-ASN Task Force Recommendations. Performed By: #### 4 6449 ####[facility] [address] [place] [address] Glenn Gudino M.D. [id number] Anion gap [Moles/Vol] 15 mmol/L Normal 10-20 [facility] Comment on above: Order Comment: [facility] has implemented the eGFR calculation approach that does not have a coefficient for race that conforms to the NKF-ASN Task Force Recommendations. Performed By: #### 4 6449 ####[facility] [address] [place], [place] [id number] Glenn Gudino M.D. [id number] Calcium [Mass/Vol] 7.7 mg/dL Low 8.4-10.[address] [facility] Comment on above: Order Comment: [facility] has implemented the eGFR calculation approach that does not have a coefficient for race that conforms to the NKF-ASN Task Force Recommendations. Performed By: #### 4 6449 ####[facility] [address] [place], [place] [id number] Glenn Gudino M.D. [id number] Chloride [Moles/Vol] 102 mmol/L Normal 98-108 [facility] Comment on above: Order Comment: [facility] has implemented the eGFR calculation approach that does not have a coefficient for race that conforms to the NKF-ASN Task Force Recommendations. Performed By: #### 4 6449 ####[facility] [address] [place], [place] [id number] Glenn Gudino M.D. [id number] Creatinine [Mass/Vol] 2.42 mg/dL High 0.60-1.10 [facility] Comment on above: Order Comment: [facility] has implemented the eGFR calculation approach that does not have a coefficient for race that conforms to the NKF-ASN Task Force Recommendations. Performed By: #### 4 6449 ####[facility] [address] [place] [address] 57383 Glenn Gudino M.D. [id number] EGFR 22 mL/min/1.73 m2 Low >=60 [facility] Comment on above: Order Comment: [facility] has implemented the eGFR calculation approach that does not have a coefficient for race that conforms to the NKF-ASN Task Force Recommendations. Result Comment: Joi mated GFR was calculated using the 2020 CKD-EPI creatinine equation. Performed By: #### 4 6449 ####[facility] [address] [place], [place] [id number] Glenn Gudino M.D. [id number] Glucose [Mass/Vol] 103 mg/dL High 65-[address] [facility] Comment on above: Order Comment: [facility] has implemented the eGFR calculation approach that does not have a coefficient for race that conforms to the NKF-ASN Task Force Recommendations. Performed By: #### 4 6449 ####[facility] [address] [place] [address] 36215 Glenn Gudino M.D. [id number] HCO3 (Bld) [Moles/Vol] 24 mmol/L Normal 21-32 [facility] Comment on above: Order Comment: [facility] has implemented the eGFR calculation approach that does not have a coefficient for race that conforms to the NKF-ASN Task Force Recommendations. Performed By: #### 4 6449 ####[facility] [address] [place] [address] 70236 Glenn Gudino M.D. [id number] Phosphate [Mass/Vol] 5.4 mg/dL High 2.8-4.1 [facility] Comment on above: Order Comment: [facility] has implemented the eGFR calculation approach that does not have a coefficient for race that conforms to the NKF-ASN Task Force Recommendations. Performed By: #### 4 6449 ####[facility] [address] [place] [address] 98238 Glenn Gudino M.D. [id number] Potassium [Moles/Vol] 4.7 mmol/L Normal 3.5-5.1 [facility] Comment on above: Order Comment: [facility] has implemented the eGFR calculation approach that does not have a coefficient for race that conforms to the NKF-ASN Task Force Recommendations. Performed By: #### 4 6449 ####[facility] [address] [place] [address] 72486 Glenn Gudino M.D. [id number] Sodium [Moles/Vol] 136 mmol/L Normal 135-[address] [facility] Comment on above: Order Comment: [facility] has implemented the eGFR calculation approach that does not have a coefficient for race that conforms to the NKF-ASN Task Force Recommendations. Performed By: #### 4 6449 ####[facility] [address] [place] [address] 25926 Glenn Gudino M.D. [id number] Urea nitrogen [Mass/Vol] 33 mg/dL High 8-25 [facility] Comment on above: Order Comment: [facility] has implemented the eGFR calculation approach that does not have a coefficient for race that conforms to the NKF-ASN Task Force Recommendations. Performed By: #### 4 6449 ####[facility] [address] [place] [address] 17168 Glenn Gudino M.D. [id number] Urea nitrogen/Creatinine [Mass ratio] 13.6 mg/mg Normal 10.0-20.0 [facility] Comment on above: Order Comment: [facility] has implemented the eGFR calculation approach that does not have a coefficient for race that conforms to the NKF-ASN Task Force Recommendations. Performed By: #### 4 6449 ####[facility] [address] [place] [address] 14447 Glenn Gudino M.D. [id number] Albumin [Mass/Vol] 1.6 g/dL Low 3.2-5.[address] [facility] Comment on above: Order Comment: [facility] has implemented the eGFR calculation approach that does not have a coefficient for race that conforms to the NKF-ASN Task Force Recommendations. Performed By: #### 4 6449 ####[facility] [address] [place] [address] 30291 Glenn Gudino M.D. [id number] Anion gap [Moles/Vol] 19 mmol/L Normal 10-20 [facility] Comment on above: Order Comment: [facility] has implemented the eGFR calculation approach that does not have a coefficient for race that conforms to the NKF-ASN Task Force Recommendations. Performed By: #### 4 6449 ####[facility] [address] [place] [address] 07904 Glenn Gudino M.D. [id number] Calcium [Mass/Vol] 7.5 mg/dL Low 8.4-10.[address] [facility] Comment on above: Order Comment: [facility] has implemented the eGFR calculation approach that does not have a coefficient for race that conforms to the NKF-ASN Task Force Recommendations. Performed By: #### 4 6449 ####[facility] [address] [place] [address] 55585 Glenn Guidno M.D. [id number] Chloride [Moles/Vol] 103 mmol/L Normal 98-108 [facility] Comment on above: Order Comment: [facility] has implemented the eGFR calculation approach that does not have a coefficient for race that conforms to the NKF-ASN Task Force Recommendations. Performed By: #### 4 6449 ####[facility] [address] [place] [address] 73122 Glenn Gudino M.D. [id number] Creatinine [Mass/Vol] 2.60 mg/dL High 0.60-1.10 [facility] Comment on above: Order Comment: [facility] has implemented the eGFR calculation approach that does not have a coefficient for race that conforms to the NKF-ASN Task Force Recommendations. Performed By: #### 4 6449 ####[facility] [address] [place] [address] 98369 Glenn Gudino M.D. [id number] EGFR 20 mL/min/1.73 m2 Low >=60 [facility] Comment on above: Order Comment: [facility] has implemented the eGFR calculation approach that does not have a coefficient for race that conforms to the NKF-ASN Task Force Recommendations. Result Comment: Joi mated GFR was calculated using the 2020 CKD-EPI creatinine equation. Performed By: #### 4 6449 ####[facility] [address] [place] [address] 65234 Glenn Gudino M.D. [id number] Glucose [Mass/Vol] 89 mg/dL Normal 65-[address] [facility] Comment on above: Order Comment: [facility] has implemented the eGFR calculation approach that does not have a coefficient for race that conforms to the NKF-ASN Task Force Recommendations. Performed By: #### 4 6449 ####[facility] [address] [place] [address] 19026 Glenn Gudino M.D. [id number] HCO3 (Bld) [Moles/Vol] 20 mmol/L Low 21-32 [facility] Comment on above: Order Comment: [facility] has implemented the eGFR calculation approach that does not have a coefficient for race that conforms to the NKF-ASN Task Force Recommendations. Performed By: #### 4 6449 ####[facility] [address] [id number] Glenn Gudino M.D. [id number] Phosphate [Mass/Vol] 6.0 mg/dL High 2.8-4.1 [facility] Comment on above: Order Comment: [facility] has implemented the eGFR calculation approach that does not have a coefficient for race that conforms to the NKF-ASN Task Force Recommendations. Performed By: #### 4 6449 ####[facility] [address] [place] [address] Glenn Gudino M.D. [id number] Potassium [Moles/Vol] 5.0 mmol/L Normal 3.5-5.1 [facility] Comment on above: Order Comment: [facility] has implemented the eGFR calculation approach that does not have a coefficient for race that conforms to the NKF-ASN Task Force Recommendations. Result Comment: Slig htly Hemolyzed Performed By: #### 4 6449 ####[facility] [address] [place], [place] [id number] Glenn Gudino M.D. [id number] Sodium [Moles/Vol] 137 mmol/L Normal 135-[address] [facility] Comment on above: Order Comment: [facility] has implemented the eGFR calculation approach that does not have a coefficient for race that conforms to the NKF-ASN Task Force Recommendations. Performed By: #### 4 6449 ####[facility] [address] [place] [address] Glenn Gudino M.D. [id number] Urea nitrogen [Mass/Vol] 34 mg/dL High 8-25 [facility] Comment on above: Order Comment: [facility] has implemented the eGFR calculation approach that does not have a coefficient for race that conforms to the NKF-ASN Task Force Recommendations. Performed By: #### 4 6449 ####[facility] [address] [place], [place] [id number] Glenn Gudino M.D. [id number] Urea nitrogen/Creatinine [Mass ratio] 13.1 mg/mg Normal 10.0-20.0 [facility] Comment on above: Order Comment: [facility] has implemented the eGFR calculation approach that does not have a coefficient for race that conforms to the NKF-ASN Task Force Recommendations. Performed By: #### 4 6449 ####[facility] [address] [address] Glenn Gudino M.D. [id number] XR CHEST PA/APon 01-27-2024 XR CHEST PA/AP [facility] Comment on above: Order Comment: Injur y/Trauma or Illness?:Illness/OtherHow long have you had these symptoms (acute/chronic)?:UnknownReason for exam?:Chest tube placement, pneumothoraxHistory of cancer?:uSurgeries, chemotherapy, or radiation?:uType of Exam?:UnknownAdditional signs and symptoms?:Chest tube placement, pneumothorax XR CHEST PA/AP Normal [facility] Comment on above: Order Comment: Injur y/Trauma or Illness?:Illness/OtherHow long have you had these symptoms (acute/chronic)?:UnknownReason for exam?:hypoxia, L pneumothorax, effusionHistory of cancer?:uSurgeries, chemotherapy, or radiation?:uType of Exam?:OngoingAdditional signs and symptoms?:- APTT HEPARIN COVERAGEon 12-29 aPTT Coag (Bld) [Time] 134 s Off scale high 23-34 [facility] Comment on above: Order Comment: Thera peutic range for APTT's is 68 - 104 seconds Result Comment: Resu lts checked. Performed By: #### 4 6848 ####[facility] [address] [place], [place] [address] Glenn Gudino M.D. [id number] aPTT Coag (Bld) [Time] 105 s High 23-34 [facility] Comment on above: Order Comment: Thera peutic range for APTT's is 68 - 104 seconds Result Comment: Resu lts checked. Performed By: #### 4 6893 ####[facility] [address] [place] [address] 66359 Glenn Gudino M.D. [id number] BASIC METABOLIC PANELon 08-3 -2023 Anion gap [Moles/Vol] 18 mmol/L Normal 10-20 [facility] Comment on above: Order Comment: [facility] has implemented the eGFR calculation approach that does not have a coefficient for race that conforms to the NKF-ASN Task Force Recommendations. Performed By: #### 4 6124 ####[facility] [address] [place] [address] 63954 Glenn Gudino M.D. [id number] Calcium [Mass/Vol] 7.5 mg/dL Low 8.4-10.[address] [facility] Comment on above: Order Comment: [facility] has implemented the eGFR calculation approach that does not have a coefficient for race that conforms to the NKF-ASN Task Force Recommendations. Performed By: #### 4 6124 ####[facility] [address] [place] [address] 64967 Glenn Gudino M.D. [id number] Chloride [Moles/Vol] 105 mmol/L Normal 98-108 [facility] Comment on above: Order Comment: [facility] has implemented the eGFR calculation approach that does not have a coefficient for race that conforms to the NKF-ASN Task Force Recommendations. Performed By: #### 4 6124 ####[facility] [address] [place] [address] 89686 Glenn Gudino M.D. [id number] Creatinine [Mass/Vol] 3.06 mg/dL High 0.60-1.10 [facility] Comment on above: Order Comment: [facility] has implemented the eGFR calculation approach that does not have a coefficient for race that conforms to the NKF-ASN Task Force Recommendations. Performed By: #### 4 6124 ####[facility] [address] [place] [address] 98377 Glenn Gudino M.D. [id number] EGFR 17 mL/min/1.73 m2 Low >=60 [facility] Comment on above: Order Comment: [facility] has implemented the eGFR calculation approach that does not have a coefficient for race that conforms to the NKF-ASN Task Force Recommendations. Result Comment: Joi mated GFR was calculated using the 2020 CKD-EPI creatinine equation. Performed By: #### 4 6124 ####[facility] [address] [place], [place] [id number] Glenn Gudino M.D. [id number] Glucose [Mass/Vol] 69 mg/dL Normal 65-[address] [facility] Comment on above: Order Comment: [facility] has implemented the eGFR calculation approach that does not have a coefficient for race that conforms to the NKF-ASN Task Force Recommendations. Performed By: #### 4 6124 ####[facility] [address] [place], [place] [id number] Glenn Gudino M.D. [id number] HCO3 (Bld) [Moles/Vol] 19 mmol/L Low 21-32 [facility] Comment on above: Order Comment: [facility] has implemented the eGFR calculation approach that does not have a coefficient for race that conforms to the NKF-ASN Task Force Recommendations. Performed By: #### 4 6124 ####[facility] [address] [place], [place] [id number] Glenn Gudino M.D. [id number] Potassium [Moles/Vol] 4.9 mmol/L Normal 3.5-5.1 [facility] Comment on above: Order Comment: [facility] has implemented the eGFR calculation approach that does not have a coefficient for race that conforms to the NKF-ASN Task Force Recommendations. Result Comment: Slig htly Hemolyzed Performed By: #### 4 6124 ####[facility] [address] [place], [place] [id number] Glenn Gudino M.D. [id number] Sodium [Moles/Vol] 137 mmol/L Normal 135-[address] [facility] Comment on above: Order Comment: [facility] has implemented the eGFR calculation approach that does not have a coefficient for race that conforms to the NKF-ASN Task Force Recommendations. Performed By: #### 4 6124 ####[facility] [address] [place], [place] [id number] Glenn Gudino M.D. [id number] Urea nitrogen [Mass/Vol] 39 mg/dL High 8-25 [facility] Comment on above: Order Comment: [facility] has implemented the eGFR calculation approach that does not have a coefficient for race that conforms to the NKF-ASN Task Force Recommendations. Performed By: #### 4 6124 ####[facility] [address] [place], [place] [id number] Glenn Gudino M.D. [id number] Urea nitrogen/Creatinine [Mass ratio] 12.7 mg/mg Normal 10.0-20.0 [facility] Comment on above: Order Comment: [facility] has implemented the eGFR calculation approach that does not have a coefficient for race that conforms to the NKF-ASN Task Force Recommendations. Performed By: #### 4 6124 ####[facility] [address] [place], [place] [id number] Glenn Gudino M.D. [id number] Anion gap [Moles/Vol] 17 mmol/L Normal 10-20 [facility] Comment on above: Order Comment: [facility] has implemented the eGFR calculation approach that does not have a coefficient for race that conforms to the NKF-ASN Task Force Recommendations. Performed By: #### 4 6124 ####[facility] [address] [place], [place] [id number] Glenn Gudino M.D. [id number] Calcium [Mass/Vol] 7.6 mg/dL Low 8.4-10.[address] [facility] Comment on above: Order Comment: [facility] has implemented the eGFR calculation approach that does not have a coefficient for race that conforms to the NKF-ASN Task Force Recommendations. Performed By: #### 4 6124 ####[facility] [address] [place] [address] 38465 Glenn Gudino M.D. [id number] Chloride [Moles/Vol] 106 mmol/L Normal 98-108 [facility] Comment on above: Order Comment: [facility] has implemented the eGFR calculation approach that does not have a coefficient for race that conforms to the NKF-ASN Task Force Recommendations. Performed By: #### 4 6124 ####[facility] [address] [place] [address] 33589 Glenn Gudino M.D. [id number] Creatinine [Mass/Vol] 2.86 mg/dL High 0.60-1.10 [facility] Comment on above: Order Comment: [facility] has implemented the eGFR calculation approach that does not have a coefficient for race that conforms to the NKF-ASN Task Force Recommendations. Performed By: #### 4 6124 ####[facility] [address] [place] [address] 88554 Glenn Gudino M.D. [id number] EGFR 18 mL/min/1.73 m2 Low >=60 [facility] Comment on above: Order Comment: [facility] has implemented the eGFR calculation approach that does not have a coefficient for race that conforms to the NKF-ASN Task Force Recommendations. Result Comment: Joi mated GFR was calculated using the 2020 CKD-EPI creatinine equation. Performed By: #### 4 6124 ####[facility] [address] [place] [address] 04983 Glenn Gudino M.D. [id number] Glucose [Mass/Vol] 81 mg/dL Normal 65-[address] [facility] Comment on above: Order Comment: [facility] has implemented the eGFR calculation approach that does not have a coefficient for race that conforms to the NKF-ASN Task Force Recommendations. Performed By: #### 4 6124 ####[facility] [address] [place] [address] 36681 Glenn Gudino M.D. [id number] HCO3 (Bld) [Moles/Vol] 19 mmol/L Low 21-32 [facility] Comment on above: Order Comment: [facility] has implemented the eGFR calculation approach that does not have a coefficient for race that conforms to the NKF-ASN Task Force Recommendations. Performed By: #### 4 6124 ####[facility] [address] [place] [address] 01988 Glenn Gudino M.D. [id number] Potassium [Moles/Vol] 5.3 mmol/L High 3.5-5.1 [facility] Comment on above: Order Comment: [facility] has implemented the eGFR calculation approach that does not have a coefficient for race that conforms to the NKF-ASN Task Force Recommendations. Result Comment: Slig htly Hemolyzed Performed By: #### 4 6124 ####[facility] [address] [place] [address] 48234 Glenn Gudino M.D. [id number] Sodium [Moles/Vol] 137 mmol/L Normal 135-[address] [facility] [facility] Comment on above: Order Comment: [facility] has implemented the eGFR calculation approach that does not have a coefficient for race that conforms to the NKF-ASN Task Force Recommendations. Performed By: #### 4 6168 ####[facility] [address] [place] [address] 13937 Glenn Gudino M.D. [id number] Urea nitrogen [Mass/Vol] 38 mg/dL High 8-25 [facility] Comment on above: Order Comment: [facility] has implemented the eGFR calculation approach that does not have a coefficient for race that conforms to the NKF-ASN Task Force Recommendations. Performed By: #### 4 6181 ####[facility] [address] [place] [address] 25584 Glenn Gudino M.D. [id number] Urea nitrogen/Creatinine [Mass ratio] 13.3 mg/mg Normal 10.0-20.0 [facility] Comment on above: Order Comment: [facility] has implemented the eGFR calculation approach that does not have a coefficient for race that conforms to the NKF-ASN Task Force Recommendations. Performed By: #### 4 6124 ####[facility] [address] [place] [address] 03685 Glenn Gudino M.D. [id number] Anion gap [Moles/Vol] 18 mmol/L Normal 10-20 [facility] Comment on above: Order Comment: [facility] has implemented the eGFR calculation approach that does not have a coefficient for race that conforms to the NKF-ASN Task Force Recommendations. Performed By: #### 4 6124 ####[facility] [address] [place] [address] 86430 Glenn Gudino M.D. [id number] Calcium [Mass/Vol] 7.4 mg/dL Low 8.4-10.[address] [facility] Comment on above: Order Comment: [facility] has implemented the eGFR calculation approach that does not have a coefficient for race that conforms to the NKF-ASN Task Force Recommendations. Performed By: #### 4 6124 ####[facility] [address] [place] [address] 31941 Glenn Gudino M.D. [id number] Chloride [Moles/Vol] 107 mmol/L Normal 98-108 [facility] Comment on above: Order Comment: [facility] has implemented the eGFR calculation approach that does not have a coefficient for race that conforms to the NKF-ASN Task Force Recommendations. Performed By: #### 4 6124 ####[facility] [address] [place] [address] 31777 Glenn Gudino M.D. [id number] Creatinine [Mass/Vol] 2.54 mg/dL High 0.60-1.10 [facility] Comment on above: Order Comment: [facility] has implemented the eGFR calculation approach that does not have a coefficient for race that conforms to the NKF-ASN Task Force Recommendations. Performed By: #### 4 6124 ####[facility] [address] [place] [address] 62187 Glenn Gudino M.D. [id number] EGFR 21 mL/min/1.73 m2 Low >=60 [facility] Comment on above: Order Comment: [facility] has implemented the eGFR calculation approach that does not have a coefficient for race that conforms to the NKF-ASN Task Force Recommendations. Result Comment: Joi mated GFR was calculated using the 2020 CKD-EPI creatinine equation. Performed By: #### 4 6124 ####[facility] [address] [place] [address] 39023 Glenn Gudino M.D. [id number] Glucose [Mass/Vol] 72 mg/dL Normal 65-[address] [facility] Comment on above: Order Comment: [facility] has implemented the eGFR calculation approach that does not have a coefficient for race that conforms to the NKF-ASN Task Force Recommendations. Performed By: #### 4 6124 ####[facility] [address] [place] [address] 21535 Glenn Gudino M.D. [id number] HCO3 (Bld) [Moles/Vol] 17 mmol/L Low 21-32 [facility] Comment on above: Order Comment: [facility] has implemented the eGFR calculation approach that does not have a coefficient for race that conforms to the NKF-ASN Task Force Recommendations. Performed By: #### 4 6124 ####[facility] [address] [place] [address] 14050 Glenn Gudino M.D. [id number] Potassium [Moles/Vol] 5.1 mmol/L Normal 3.5-5.1 [facility] Comment on above: Order Comment: [facility] has implemented the eGFR calculation approach that does not have a coefficient for race that conforms to the NKF-ASN Task Force Recommendations. Result Comment: Marisol leblanc Hemolyzed Performed By: #### 4 6124 ####[facility] [address] [place] [address] 03735 Glenn Gudino M.D. [id number] Sodium [Moles/Vol] 137 mmol/L Normal 135-[address] [facility] Comment on above: Order Comment: [facility] has implemented the eGFR calculation approach that does not have a coefficient for race that conforms to the NKF-ASN Task Force Recommendations. Performed By: #### 4 6124 ####[facility] [address] [place], [place] [id number] Glenn Gudino M.D. [id number] Urea nitrogen [Mass/Vol] 36 mg/dL High 8-25 [facility] Comment on above: Order Comment: [facility] has implemented the eGFR calculation approach that does not have a coefficient for race that conforms to the NKF-ASN Task Force Recommendations. Performed By: #### 4 6124 ####[facility] [address] [place] [address] 04372 Glenn Gudino M.D. [id number] Urea nitrogen/Creatinine [Mass ratio] 14.2 mg/mg Normal 10.0-20.0 [facility] Comment on above: Order Comment: [facility] has implemented the eGFR calculation approach that does not have a coefficient for race that conforms to the NKF-ASN Task Force Recommendations. Performed By: #### 4 6124 ####[facility] [address] [place], [place] [id number] Glenn Gudino M.D. [id number] CALCIUM, IONIZEDon 4 CALCIUM IONIZED 4.3 mg/dL Low 4.5-5.3 [facility] Comment on above: Order Comment: Serum , non-CRRT source. Performed By: #### 4 5190 ####[facility] [address] [place], [place] [id number] Glenn Gudino M.D. [id number] CALCIUM IONIZED 4.5 mg/dL Normal 4.5-5.3 [facility] Comment on above: Performed By: #### 4 5190 ####[facility] [address] [place] [address] Glenn Gudino M.D. [id number] CBCon 01-26-2024 AUTO NRBC 0.0 % Normal [facility] Comment on above: Performed By: #### 4 5218 ####[facility] [address] [place], [place] [id number] Glenn Gudino M.D. [id number] AUTO NRBC ABS COUNT 0.00 K/mcL Normal 0.00-0.00 [facility] Comment on above: Performed By: #### 4 5218 ####[facility] [address] [place], [place] [id number] Glenn Gudino M.D. [id number] Erythrocyte distribution width (RBC) [Ratio] 17.2 % High 11.6-14.8 [facility] Comment on above: Performed By: #### 4 5218 ####[facility] [address] [place], [place] [id number] Glenn Gudino M.D. [id number] Hematocrit (Bld) [Volume fraction] 31.5 % Low 36.0-46.0 [facility] Comment on above: Performed By: #### 4 5218 ####[facility] [address] [place], [place] [id number] Glenn Gudino M.D. [id number] Hemoglobin (Bld) [Mass/Vol] 10.5 g/dL Low 12.0-16.0 [facility] Comment on above: Performed By: #### 4 5218 ####[facility] [address] [place], [place] [id number] Glenn Gudino M.D. [id number] MCH (RBC) [Entitic mass] 29.2 pg Normal 26.0-34.0 [facility] Comment on above: Performed By: #### 4 [id number] ####[facility] [address] [place] [address] Glenn Gudino M.D. [id number] MCV (RBC) [Entitic vol] 87.5 fL Normal 80.0-100.0 [facility] Comment on above: Performed By: #### 4 [id number] ####[facility] [address] [place] [address] Glenn Gudino M.D. [id number] MEAN CORPUSCULAR HEMOGLOBIN CONC 33.3 g/dL Normal 31.0-37.0 [facility] Comment on above: Performed By: #### 4 5218 ####[facility] [address] [place], [place] [id number] Glenn Gudino M.D. [id number] Platelet mean volume (Bld) [Entitic vol] 11.7 fL Normal 9.4-12.4 [facility] Comment on above: Performed By: #### 4 [id number] ####[facility] [address] [place], [place] [id number] Glenn Gudino M.D. [id number] Platelets (Bld) [#/Vol] 80 10*3/uL Low 150-400 [facility] Comment on above: Result Comment: Resu lts checked Performed By: #### 4 [id number] ####[facility] [address] [place] [address] Glenn Gudino M.D. [id number] RBC (Bld) [#/Vol] 3.60 10*6/uL Low 4.00-5.20 [facility] Comment on above: Performed By: #### 4 [id number] ####[facility] [address] [place] [address] 16678 Glenn Gudino M.D. [id number] WBC (Bld) [#/Vol] 13.45 10*3/uL High 4.50-11.00 [facility] Comment on above: Performed By: #### 4 5218 ####[facility] [address] [place] [address] Glenn Gudino M.D. [id number] MAGNESIUM LEVELon 01-26-2024 Magnesium [Mass/Vol] 2.2 mg/dL Normal 1.6-2.4 [facility] Comment on above: Performed By: #### 4 6109 ####[facility] [address] [place], [place] [id number] Glenn Gudino M.D. [id number] Magnesium [Mass/Vol] 2.2 mg/dL Normal 1.6-2.4 [facility] Comment on above: Performed By: #### 4 6109 ####[facility] [address] [place], [place] [id number] Glenn Gudino M.D. [id number] MYOGLOBIN, URINEon 4 MYOGLOBIN, URINE Positive Abnormal Negative [facility] Comment on above: Performed By: #### 4 6189 ####[facility] [address] [place], [place] [id number] Glenn Gudino M.D. [id number] PHOSPHORUSon 01-26-2024 Phosphate [Mass/Vol] 6.5 mg/dL High 2.8-4.1 [facility] Comment on above: Performed By: #### 4 6299 ####[facility] [address] [place], [place] [id number] Glenn Gudion M.D. [id number] [facility] Glucose [Mass/Vol] 96 mg/dL Normal 65-[address] [facility] Comment on above: Performed By: #### 4 6932 ####[facility] [address] [place] [address] [id number] RMHPOC Glucose [Mass/Vol] 14 mg/dL Off scale low 65-99 [facility] Comment on above: Order Comment: Criti cherrie result acted upon time of test. Test performed at bedside. Performed By: #### 4 6957 ####[facility] [address] [place] [address] [id number] [facility]HP[facility] Glucose [Mass/Vol] 72 mg/dL Normal 65-[address] [facility] Comment on above: Performed By: #### 4 6959 ####[facility] [address] [place] [address] [id number] [facility] Glucose [Mass/Vol] 82 mg/dL Normal 65-[address] [facility] Comment on above: Performed By: #### 4 6917 ####[facility] [address] [place] [address] [id number] [facility] Glucose [Mass/Vol] 84 mg/dL Normal 65-[address] [facility] Comment on above: Performed By: #### 4 6922 ####[facility] [address] [place] [address] [id number] [facility] Glucose [Mass/Vol] 76 mg/dL Normal 65-[address] [facility] Comment on above: Performed By: #### 4 6986 ####[facility] [address] [place] [address] [id number] [facility] Glucose [Mass/Vol] 78 mg/dL Normal 65-[address] [facility] Comment on above: Performed By: #### 4 6956 ####[facility] [address] [place] [address] [id number] [facility] RENAL FUNCTION PANELon 01-25 Albumin [Mass/Vol] 1.6 g/dL Low 3.2-5.[address] [facility] Comment on above: Order Comment: [facility] has implemented the eGFR calculation approach that does not have a coefficient for race that conforms to the NKF-ASN Task Force Recommendations. Performed By: #### 4 6449 ####[facility] [address] [place], [place] [id number] Glenn Gudino M.D. [id number] Anion gap [Moles/Vol] 17 mmol/L Normal 10-20 [facility] Comment on above: Order Comment: [facility] has implemented the eGFR calculation approach that does not have a coefficient for race that conforms to the NKF-ASN Task Force Recommendations. Performed By: #### 4 6449 ####[facility] [address] [place], [place] [id number] Glenn Gudino M.D. [id number] Calcium [Mass/Vol] 6.9 mg/dL Low 8.4-10.[address] [facility] Comment on above: Order Comment: [facility] has implemented the eGFR calculation approach that does not have a coefficient for race that conforms to the NKF-ASN Task Force Recommendations. Performed By: #### 4 6449 ####[facility] [address] [place], [place] [address] Glenn Gudino M.D. [id number] Chloride [Moles/Vol] 103 mmol/L Normal 98-108 [facility] Comment on above: Order Comment: [facility] has implemented the eGFR calculation approach that does not have a coefficient for race that conforms to the NKF-ASN Task Force Recommendations. Performed By: #### 4 6449 ####[facility] [address] [place] [address] 76761 Glenn Gudino M.D. [id number] Creatinine [Mass/Vol] 2.90 mg/dL High 0.60-1.10 [facility] Comment on above: Order Comment: [facility] has implemented the eGFR calculation approach that does not have a coefficient for race that conforms to the NKF-ASN Task Force Recommendations. Performed By: #### 4 6449 ####[facility] [address] [place] [address] 44289 Glenn Gudino M.D. [id number] EGFR 18 mL/min/1.73 m2 Low >=60 [facility] Comment on above: Order Comment: [facility] has implemented the eGFR calculation approach that does not have a coefficient for race that conforms to the NKF-ASN Task Force Recommendations. Result Comment: Joi mated GFR was calculated using the 2020 CKD-EPI creatinine equation. Performed By: #### 4 6449 ####[facility] [address] [place] [address] 60361 Glenn Gudino M.D. [id number] Glucose [Mass/Vol] 84 mg/dL Normal 65-[address] [facility] Comment on above: Order Comment: [facility] has implemented the eGFR calculation approach that does not have a coefficient for race that conforms to the NKF-ASN Task Force Recommendations. Performed By: #### 4 6449 ####[facility] [address] [place] [address] 98789 Glenn Gudino M.D. [id number] HCO3 (Bld) [Moles/Vol] 21 mmol/L Normal 21-32 [facility] Comment on above: Order Comment: [facility] has implemented the eGFR calculation approach that does not have a coefficient for race that conforms to the NKF-ASN Task Force Recommendations. Performed By: #### 4 6449 ####[facility] [address] [place] [address] 92898 Glenn Gudino M.D. [id number] Phosphate [Mass/Vol] 6.5 mg/dL High 2.8-4.1 [facility] Comment on above: Order Comment: [facility] has implemented the eGFR calculation approach that does not have a coefficient for race that conforms to the NKF-ASN Task Force Recommendations. Performed By: #### 4 6449 ####[facility] [address] [place] [address] Glenn Gudino M.D. [id number] Potassium [Moles/Vol] 5.0 mmol/L Normal 3.5-5.1 [facility] Comment on above: Order Comment: [facility] has implemented the eGFR calculation approach that does not have a coefficient for race that conforms to the NKF-ASN Task Force Recommendations. Result Comment: Slig htly Hemolyzed Performed By: #### 4 6449 ####[facility] [address] [place] [address] 91196 Glenn Gudino M.D. [id number] Sodium [Moles/Vol] 136 mmol/L Normal 135-[address] [facility] Comment on above: Order Comment: [facility] has implemented the eGFR calculation approach that does not have a coefficient for race that conforms to the NKF-ASN Task Force Recommendations. Performed By: #### 4 6449 ####[facility] [address] [place], [place] [address] Glenn Gudino M.D. [id number] Urea nitrogen [Mass/Vol] 39 mg/dL High 8-25 [facility] Comment on above: Order Comment: [facility] has implemented the eGFR calculation approach that does not have a coefficient for race that conforms to the NKF-ASN Task Force Recommendations. Performed By: #### 4 6449 ####[facility] [address] [place], [place] [address] Glenn Gudino M.D. [id number] Urea nitrogen/Creatinine [Mass ratio] 13.4 mg/mg Normal 10.0-20.0 [facility] Comment on above: Order Comment: [facility] has implemented the eGFR calculation approach that does not have a coefficient for race that conforms to the NKF-ASN Task Force Recommendations. Performed By: #### 4 6449 ####[facility] [address] [place], [place] [id number] Glenn Gudino M.D. [id number] XR ABDOMEN /KUB/FLAT PLATE/1 VIEWon 01-26-2024 XR ABDOMEN /KUB/FLAT PLATE/1 VIEW Normal [facility] Comment on above: Order Comment: Injur y/Trauma or Illness?:Illness/OtherHow long have you had these symptoms (acute/chronic)?:UnknownReason for exam?:NG placementHistory of cancer?:uSurgeries, chemotherapy, or radiation?:uType of Exam?:InitialAdditional signs and symptoms?:unk XR CHEST PA/APon 01-26-2024 XR CHEST PA/AP Normal [facility] Comment on above: Order Comment: Injur y/Trauma or Illness?:Illness/OtherHow long have you had these symptoms (acute/chronic)?:UnknownReason for exam?:eval LIJ placementHistory of cancer?:uSurgeries, chemotherapy, or radiation?:uType of Exam?:InitialAdditional signs and symptoms?:unk BASIC METABOLIC PANELon 12-28 Anion gap [Moles/Vol] 17 mmol/L Normal 10-20 [facility] Comment on above: Order Comment: [facility] has implemented the eGFR calculation approach that does not have a coefficient for race that conforms to the NKF-ASN Task Force Recommendations. Performed By: #### 4 6124 ####[facility] [address] [place] [address] 84676 Glenn Gudino M.D. [id number] Calcium [Mass/Vol] 7.3 mg/dL Low 8.4-10.[address] [facility] Comment on above: Order Comment: [facility] has implemented the eGFR calculation approach that does not have a coefficient for race that conforms to the NKF-ASN Task Force Recommendations. Performed By: #### 4 6124 ####[facility] [address] [place] [address] 20395 Glenn Gudino M.D. [id number] Chloride [Moles/Vol] 106 mmol/L Normal 98-108 [facility] Comment on above: Order Comment: [facility] has implemented the eGFR calculation approach that does not have a coefficient for race that conforms to the NKF-ASN Task Force Recommendations. Performed By: #### 4 6124 ####[facility] [address] [place], [place] [address] Glenn Gudino M.D. [id number] Creatinine [Mass/Vol] 2.50 mg/dL High 0.60-1.10 [facility] Comment on above: Order Comment: [facility] has implemented the eGFR calculation approach that does not have a coefficient for race that conforms to the NKF-ASN Task Force Recommendations. Performed By: #### 4 6124 ####[facility] [address] [place], [place] [address] Glenn Gudino M.D. [id number] EGFR 21 mL/min/1.73 m2 Low >=60 [facility] Comment on above: Order Comment: [facility] has implemented the eGFR calculation approach that does not have a coefficient for race that conforms to the NKF-ASN Task Force Recommendations. Result Comment: Joi mated GFR was calculated using the 2020 CKD-EPI creatinine equation. Performed By: #### 4 6124 ####[facility] [address] [place] [address] 87193 Glenn Gudino M.D. [id number] Glucose [Mass/Vol] 72 mg/dL Normal 65-[address] [facility] Comment on above: Order Comment: [facility] has implemented the eGFR calculation approach that does not have a coefficient for race that conforms to the NKF-ASN Task Force Recommendations. Performed By: #### 4 6124 ####[facility] [address] [place] [address] 22765 Glenn Gudino M.D. [id number] HCO3 (Bld) [Moles/Vol] 19 mmol/L Low 21-32 [facility] Comment on above: Order Comment: [facility] has implemented the eGFR calculation approach that does not have a coefficient for race that conforms to the NKF-ASN Task Force Recommendations. Performed By: #### 4 6124 ####[facility] [address] [place] [address] 42169 Glenn Gudino M.D. [id number] Potassium [Moles/Vol] 5.0 mmol/L Normal 3.5-5.1 [facility] Comment on above: Order Comment: [facility] has implemented the eGFR calculation approach that does not have a coefficient for race that conforms to the NKF-ASN Task Force Recommendations. Performed By: #### 4 6124 ####[facility] [address] [place] [address] 58363 Glenn uGdino M.D. [id number] Sodium [Moles/Vol] 137 mmol/L Normal 135-[address] [facility] Comment on above: Order Comment: [facility] has implemented the eGFR calculation approach that does not have a coefficient for race that conforms to the NKF-ASN Task Force Recommendations. Performed By: #### 4 6124 ####[facility] [address] [place] [address] 19717 Glenn Gudino M.D. [id number] Urea nitrogen [Mass/Vol] 32 mg/dL High 8-25 [facility] Comment on above: Order Comment: [facility] has implemented the eGFR calculation approach that does not have a coefficient for race that conforms to the NKF-ASN Task Force Recommendations. Performed By: #### 4 6124 ####[facility] [address] [place] [address] 95581 Glenn Gudino M.D. [id number] Urea nitrogen/Creatinine [Mass ratio] 12.8 mg/mg Normal 10.0-20.0 [facility] Comment on above: Order Comment: [facility] has implemented the eGFR calculation approach that does not have a coefficient for race that conforms to the NKF-ASN Task Force Recommendations. Performed By: #### 4 6124 ####[facility] [address] [place] [address] 87767 Glenn Gudino M.D. [id number] Anion gap [Moles/Vol] 16 mmol/L Normal 10-20 [facility] Comment on above: Order Comment: [facility] has implemented the eGFR calculation approach that does not have a coefficient for race that conforms to the NKF-ASN Task Force Recommendations. Performed By: #### 4 6124 ####[facility] [address] [place], [place] [id number] Glenn Gudino M.D. [id number] Calcium [Mass/Vol] 7.3 mg/dL Low 8.4-10.[address] [facility] Comment on above: Order Comment: [facility] has implemented the eGFR calculation approach that does not have a coefficient for race that conforms to the NKF-ASN Task Force Recommendations. Performed By: #### 4 6124 ####[facility] [address] [place], [place] [id number] Glenn Gudino M.D. [id number] Chloride [Moles/Vol] 109 mmol/L High 98-108 [facility] Comment on above: Order Comment: [facility] has implemented the eGFR calculation approach that does not have a coefficient for race that conforms to the NKF-ASN Task Force Recommendations. Performed By: #### 4 6124 ####[facility] [address] [place] [address] 42544 Glenn Gudino M.D. [id number] Creatinine [Mass/Vol] 2.31 mg/dL High 0.60-1.10 [facility] Comment on above: Order Comment: [facility] has implemented the eGFR calculation approach that does not have a coefficient for race that conforms to the NKF-ASN Task Force Recommendations. Performed By: #### 4 6124 ####[facility] [address] [place] [address] 17711 Glenn Gudino M.D. [id number] EGFR 24 mL/min/1.73 m2 Low >=60 [facility] Comment on above: Order Comment: [facility] has implemented the eGFR calculation approach that does not have a coefficient for race that conforms to the NKF-ASN Task Force Recommendations. Result Comment: Joi mated GFR was calculated using the 2020 CKD-EPI creatinine equation. Performed By: #### 4 6124 ####[facility] [address] [place], [place] [id number] Glenn Gudino M.D. [id number] Glucose [Mass/Vol] 115 mg/dL High 65-[address] [facility] Comment on above: Order Comment: [facility] has implemented the eGFR calculation approach that does not have a coefficient for race that conforms to the NKF-ASN Task Force Recommendations. Performed By: #### 4 6124 ####[facility] [address] [place], [place] [id number] Glenn Gudino M.D. [id number] HCO3 (Bld) [Moles/Vol] 18 mmol/L Low 21-32 [facility] Comment on above: Order Comment: [facility] has implemented the eGFR calculation approach that does not have a coefficient for race that conforms to the NKF-ASN Task Force Recommendations. Performed By: #### 4 6124 ####[facility] [address] [place] [address] 19118 Glenn Gudino M.D. [id number] Potassium [Moles/Vol] 4.8 mmol/L Normal 3.5-5.1 [facility] Comment on above: Order Comment: [facility] has implemented the eGFR calculation approach that does not have a coefficient for race that conforms to the NKF-ASN Task Force Recommendations. Result Comment: Slig htly Hemolyzed Performed By: #### 4 6124 ####[facility] [address] [place] [address] 07191 Glenn Gudino M.D. [id number] Sodium [Moles/Vol] 138 mmol/L Normal 135-[address] [facility] Comment on above: Order Comment: [facility] has implemented the eGFR calculation approach that does not have a coefficient for race that conforms to the NKF-ASN Task Force Recommendations. Performed By: #### 4 6124 ####[facility] [address] [place] [address] 23707 Glenn Gudino M.D. [id number] Urea nitrogen [Mass/Vol] 33 mg/dL High 8-25 [facility] Comment on above: Order Comment: [facility] has implemented the eGFR calculation approach that does not have a coefficient for race that conforms to the NKF-ASN Task Force Recommendations. Performed By: #### 4 6124 ####[facility] [address] [place] [address] 65786 Glenn Gudino M.D. [id number] Urea nitrogen/Creatinine [Mass ratio] 14.3 mg/mg Normal 10.0-20.0 [facility] Comment on above: Order Comment: [facility] has implemented the eGFR calculation approach that does not have a coefficient for race that conforms to the NKF-ASN Task Force Recommendations. Performed By: #### 4 6124 ####[facility] [address] [place] [address] 67981 Glenn Gudino M.D. [id number] Anion gap [Moles/Vol] 16 mmol/L Normal 10-20 [facility] Comment on above: Order Comment: [facility] has implemented the eGFR calculation approach that does not have a coefficient for race that conforms to the NKF-ASN Task Force Recommendations. Performed By: #### 4 6124 ####[facility] [address] [place] [address] 79842 Glenn Gudino M.D. [id number] Calcium [Mass/Vol] 7.7 mg/dL Low 8.4-10.[address] [facility] Comment on above: Order Comment: [facility] has implemented the eGFR calculation approach that does not have a coefficient for race that conforms to the NKF-ASN Task Force Recommendations. Performed By: #### 4 6124 ####[facility] [address] [place] [address] 49822 Glenn Gudino M.D. [id number] Chloride [Moles/Vol] 109 mmol/L High 98-108 [facility] Comment on above: Order Comment: [facility] has implemented the eGFR calculation approach that does not have a coefficient for race that conforms to the NKF-ASN Task Force Recommendations. Performed By: #### 4 6124 ####[facility] [address] [place] [address] 03380 Glenn Gudino M.D. [id number] Creatinine [Mass/Vol] 2.24 mg/dL High 0.60-1.10 [facility] Comment on above: Order Comment: [facility] has implemented the eGFR calculation approach that does not have a coefficient for race that conforms to the NKF-ASN Task Force Recommendations. Performed By: #### 4 6124 ####[facility] [address] [place] [address] 56919 Glenn Gudino M.D. [id number] EGFR 24 mL/min/1.73 m2 Low >=60 [facility] Comment on above: Order Comment: [facility] has implemented the eGFR calculation approach that does not have a coefficient for race that conforms to the NKF-ASN Task Force Recommendations. Result Comment: Joi mated GFR was calculated using the 2020 CKD-EPI creatinine equation. Performed By: #### 4 6124 ####[facility] [address] [place] [address] 69549 Glenn Gudino M.D. [id number] Glucose [Mass/Vol] 73 mg/dL Normal 65-[address] [facility] Comment on above: Order Comment: [facility] has implemented the eGFR calculation approach that does not have a coefficient for race that conforms to the NKF-ASN Task Force Recommendations. Performed By: #### 4 6124 ####[facility] [address] [place] [address] 44966 Glenn Gudino M.D. [id number] HCO3 (Bld) [Moles/Vol] 18 mmol/L Low 21-32 [facility] Comment on above: Order Comment: [facility] has implemented the eGFR calculation approach that does not have a coefficient for race that conforms to the NKF-ASN Task Force Recommendations. Performed By: #### 4 6124 ####[facility] [address] [place] [address] 47853 Glenn Gudino M.D. [id number] Potassium [Moles/Vol] 5.1 mmol/L Normal 3.5-5.1 [facility] Comment on above: Order Comment: [facility] has implemented the eGFR calculation approach that does not have a coefficient for race that conforms to the NKF-ASN Task Force Recommendations. Result Comment: Slig htly Hemolyzed Performed By: #### 4 6124 ####[facility] [address] [place], [place] [id number] Glenn Gudino M.D. [id number] Sodium [Moles/Vol] 138 mmol/L Normal 135-[address] [facility] Comment on above: Order Comment: [facility] has implemented the eGFR calculation approach that does not have a coefficient for race that conforms to the NKF-ASN Task Force Recommendations. Performed By: #### 4 6124 ####[facility] [address] [place] [address] 24115 Glenn Gudino M.D. [id number] Urea nitrogen [Mass/Vol] 32 mg/dL High 8-25 [facility] Comment on above: Order Comment: [facility] has implemented the eGFR calculation approach that does not have a coefficient for race that conforms to the NKF-ASN Task Force Recommendations. Performed By: #### 4 6161 ####[facility] [address] [place], [place] [id number] Glenn Gudino M.D. [id number] Urea nitrogen/Creatinine [Mass ratio] 14.3 mg/mg Normal 10.0-20.0 [facility] Comment on above: Order Comment: [facility] has implemented the eGFR calculation approach that does not have a coefficient for race that conforms to the NKF-ASN Task Force Recommendations. Performed By: #### 4 6124 ####[facility] [address] [place], [place] [id number] Glenn Gudino M.D. [id number] Anion gap [Moles/Vol] 16 mmol/L Normal 10-20 [facility] Comment on above: Order Comment: [facility] has implemented the eGFR calculation approach that does not have a coefficient for race that conforms to the NKF-ASN Task Force Recommendations. Performed By: #### 4 6124 ####[facility] [address] [place], [place] [id number] Glenn Gudino M.D. [id number] Calcium [Mass/Vol] 7.4 mg/dL Low 8.4-10.[address] [facility] Comment on above: Order Comment: [facility] has implemented the eGFR calculation approach that does not have a coefficient for race that conforms to the NKF-ASN Task Force Recommendations. Performed By: #### 4 6124 ####[facility] [address] [place], [place] [address] Glenn Gudino M.D. [id number] Chloride [Moles/Vol] 110 mmol/L High 98-108 [facility] Comment on above: Order Comment: [facility] has implemented the eGFR calculation approach that does not have a coefficient for race that conforms to the NKF-ASN Task Force Recommendations. Performed By: #### 4 6124 ####[facility] [address] [place] [address] 41833 Glenn Gudino M.D. [id number] Creatinine [Mass/Vol] 2.19 mg/dL High 0.60-1.10 [facility] Comment on above: Order Comment: [facility] has implemented the eGFR calculation approach that does not have a coefficient for race that conforms to the NKF-ASN Task Force Recommendations. Performed By: #### 4 6124 ####[facility] [address] [place], [place] [id number] Glenn Gudino M.D. [id number] EGFR 25 mL/min/1.73 m2 Low >=60 [facility] Comment on above: Order Comment: [facility] has implemented the eGFR calculation approach that does not have a coefficient for race that conforms to the NKF-ASN Task Force Recommendations. Result Comment: Joi mated GFR was calculated using the 2020 CKD-EPI creatinine equation. Performed By: #### 4 6124 ####[facility] [address] [place], [place] [address] Glenn Gudino M.D. [id number] Glucose [Mass/Vol] 95 mg/dL Normal 65-[address] [facility] Comment on above: Order Comment: [facility] has implemented the eGFR calculation approach that does not have a coefficient for race that conforms to the NKF-ASN Task Force Recommendations. Performed By: #### 4 6124 ####[facility] [address] [place], [place] [id number] Glenn Gudino M.D. [id number] HCO3 (Bld) [Moles/Vol] 17 mmol/L Low 21-32 [facility] Comment on above: Order Comment: [facility] has implemented the eGFR calculation approach that does not have a coefficient for race that conforms to the NKF-ASN Task Force Recommendations. Performed By: #### 4 6124 ####[facility] [address] [place], [place] [id number] Glenn Gudino M.D. [id number] Potassium [Moles/Vol] 4.6 mmol/L Normal 3.5-5.1 [facility] Comment on above: Order Comment: [facility] has implemented the eGFR calculation approach that does not have a coefficient for race that conforms to the NKF-ASN Task Force Recommendations. Performed By: #### 4 6124 ####[facility] [address] [place] [address] 07703 Glenn Gudino M.D. [id number] Sodium [Moles/Vol] 138 mmol/L Normal 135-[address] [facility] Comment on above: Order Comment: [facility] has implemented the eGFR calculation approach that does not have a coefficient for race that conforms to the NKF-ASN Task Force Recommendations. Performed By: #### 4 6124 ####[facility] [address] [place] [address] 55416 Glenn Gudino M.D. [id number] Urea nitrogen [Mass/Vol] 31 mg/dL High 8-25 [facility] Comment on above: Order Comment: [facility] has implemented the eGFR calculation approach that does not have a coefficient for race that conforms to the NKF-ASN Task Force Recommendations. Performed By: #### 4 6124 ####[facility] [address] [place] [address] 21061 Glenn Gudino M.D. [id number] Urea nitrogen/Creatinine [Mass ratio] 14.2 mg/mg Normal 10.0-20.0 [facility] Comment on above: Order Comment: [facility] has implemented the eGFR calculation approach that does not have a coefficient for race that conforms to the NKF-ASN Task Force Recommendations. Performed By: #### 4 6124 ####[facility] [address] [place] [address] 13371 Glenn Gudino M.D. [id number] Anion gap [Moles/Vol] 18 mmol/L Normal 10-20 [facility] Comment on above: Order Comment: [facility] has implemented the eGFR calculation approach that does not have a coefficient for race that conforms to the NKF-ASN Task Force Recommendations. Performed By: #### 4 6124 ####[facility] [address] [place] [address] 57464 Glenn Gudino M.D. [id number] Calcium [Mass/Vol] 7.0 mg/dL Low 8.4-10.[address] [facility] Comment on above: Order Comment: [facility] has implemented the eGFR calculation approach that does not have a coefficient for race that conforms to the NKF-ASN Task Force Recommendations. Performed By: #### 4 6124 ####[facility] [address] [place] [address] 77014 Glenn Gudino M.D. [id number] Chloride [Moles/Vol] 109 mmol/L High 98-108 [facility] Comment on above: Order Comment: [facility] has implemented the eGFR calculation approach that does not have a coefficient for race that conforms to the NKF-ASN Task Force Recommendations. Performed By: #### 4 6124 ####[facility] [address] [place] [address] 52291 Glenn Gudino M.D. [id number] Creatinine [Mass/Vol] 1.78 mg/dL High 0.60-1.10 [facility] Comment on above: Order Comment: [facility] has implemented the eGFR calculation approach that does not have a coefficient for race that conforms to the NKF-ASN Task Force Recommendations. Performed By: #### 4 6124 ####[facility] [address] [place] [address] 62802 Glenn Gudino M.D. [id number] EGFR 32 mL/min/1.73 m2 Low >=60 [facility] Comment on above: Order Comment: [facility] has implemented the eGFR calculation approach that does not have a coefficient for race that conforms to the NKF-ASN Task Force Recommendations. Result Comment: Joi mated GFR was calculated using the 2020 CKD-EPI creatinine equation. Performed By: #### 4 6124 ####[facility] [address] [place] [address] 85829 Glenn Gudino M.D. [id number] Glucose [Mass/Vol] 140 mg/dL High 65-[address] [facility] Comment on above: Order Comment: [facility] has implemented the eGFR calculation approach that does not have a coefficient for race that conforms to the NKF-ASN Task Force Recommendations. Performed By: #### 4 6124 ####[facility] [address] [place] [address] 31539 Glenn Gudino M.D. [id number] HCO3 (Bld) [Moles/Vol] 17 mmol/L Low 21-32 [facility] Comment on above: Order Comment: [facility] has implemented the eGFR calculation approach that does not have a coefficient for race that conforms to the NKF-ASN Task Force Recommendations. Performed By: #### 4 6124 ####[facility] [address] [place] [address] 23644 Glenn Gudino M.D. [id number] Sodium [Moles/Vol] 139 mmol/L Normal 135-[address] [facility] Comment on above: Order Comment: [facility] has implemented the eGFR calculation approach that does not have a coefficient for race that conforms to the NKF-ASN Task Force Recommendations. Performed By: #### 4 6124 ####[facility] [address] [place] [address] 89312 Glenn Gudino M.D. [id number] Urea nitrogen [Mass/Vol] 29 mg/dL High 8-25 [facility] Comment on above: Order Comment: [facility] has implemented the eGFR calculation approach that does not have a coefficient for race that conforms to the NKF-ASN Task Force Recommendations. Performed By: #### 4 6124 ####[facility] [address] [place] [address] 42278 Glenn Gudino M.D. [id number] Urea nitrogen/Creatinine [Mass ratio] 16.3 mg/mg Normal 10.0-20.0 [facility] Comment on above: Order Comment: [facility] has implemented the eGFR calculation approach that does not have a coefficient for race that conforms to the NKF-ASN Task Force Recommendations. Performed By: #### 4 6124 ####[facility] [address] [place] [address] Glenn Gudino M.D. [id number] CALCIUM, IONIZEDon CALCIUM IONIZED 4.4 mg/dL Low 4.5-5.3 [facility] Comment on above: Performed By: #### 4 5190 ####[facility] [address] [place] [address] Glenn Gudino M.D. [id number] CBCon 01-25-2024 AUTO NRBC 0.0 % Normal [facility] Comment on above: Performed By: #### 4 [id number] ####[facility] [address] [place], [place] [id number] Glenn Gudino M.D. [id number] AUTO NRBC ABS COUNT 0.00 K/mcL Normal 0.00-0.00 [facility] Comment on above: Performed By: #### 4 [id number] ####[facility] [address] [place], [place] [id number] Glenn Gudino M.D. [id number] Erythrocyte distribution width (RBC) [Ratio] 16.8 % High 11.6-14.8 [facility] Comment on above: Performed By: #### 4 [id number] ####[facility] [address] [place], [place] [id number] Glenn Gudino M.D. [id number] Hematocrit (Bld) [Volume fraction] 34.2 % Low 36.0-46.0 [facility] Comment on above: Performed By: #### 4 [id number] ####[facility] [address] [place], [place] [id number] Glenn Gudino M.D. [id number] Hemoglobin (Bld) [Mass/Vol] 11.4 g/dL Low 12.0-16.0 [facility] Comment on above: Performed By: #### 4 [id number] ####[facility] [address] [place] [address] Glenn Gudino M.D. [id number] MCH (RBC) [Entitic mass] 28.8 pg Normal 26.0-34.0 [facility] Comment on above: Performed By: #### 4 [id number] ####[facility] [address] [place] [address] Glenn Gudino M.D. [id number] MCV (RBC) [Entitic vol] 86.4 fL Normal 80.0-100.0 [facility] Comment on above: Performed By: #### 4 [id number] ####[facility] [address] [place] [address] Glenn Gudino M.D. [id number] MEAN CORPUSCULAR HEMOGLOBIN CONC 33.3 g/dL Normal 31.0-37.0 [facility] Comment on above: Performed By: #### 4 [id number] ####[facility] [address] [place], [place] [address]Karma Gudino M.D. [id number] Platelet mean volume (Bld) [Entitic vol] 11.0 fL Normal 9.4-12.4 [facility] Comment on above: Performed By: #### 4 [id number] ####[facility] [address] [place] [address] Glenn Gudino M.D. [id number] Platelets (Bld) [#/Vol] 111 10*3/uL Low 150-400 [facility] Comment on above: Performed By: #### 4 5221 ####[facility] [address] [place] [address] Glenn Gudino M.D. [id number] RBC (Bld) [#/Vol] 3.96 10*6/uL Low 4.00-5.20 [facility] Comment on above: Performed By: #### 4 [id number] ####[facility] [address] [place] [address] Glenn Gudino M.D. [id number] WBC (Bld) [#/Vol] 12.12 10*3/uL High 4.50-11.00 [facility] Comment on above: Performed By: #### 4 [id number] ####[facility] [address] [place] [address] Glenn Gudino M.D. [id number] AUTO NRBC 0.0 % Normal [facility] Comment on above: Performed By: #### 4 [id number] ####[facility] [address] [place] [address] Glenn Gudino M.D. [id number] AUTO NRBC ABS COUNT 0.00 K/mcL Normal 0.00-0.00 [facility] Comment on above: Performed By: #### 4 [id number] ####[facility] [address] [place], [place] [address]Karma Gudino M.D. [id number] Erythrocyte distribution width (RBC) [Ratio] 16.3 % High 11.6-14.8 [facility] Comment on above: Performed By: #### 4 [id number] ####[facility] [address] [place], [place] [id number] Glenn Gudino M.D. [id number] Hematocrit (Bld) [Volume fraction] 36.7 % Normal 36.0-46.0 [facility] Comment on above: Performed By: #### 4 [id number] ####[facility] [address] [place], [place] [id number] Glenn Gudino M.D. [id number] Hemoglobin (Bld) [Mass/Vol] 12.7 g/dL Normal 12.0-16.0 [facility] Comment on above: Performed By: #### 4 [id number] ####[facility] [address] [place], [place] [id number] Glenn Gudino M.D. [id number] MCH (RBC) [Entitic mass] 29.5 pg Normal 26.0-34.0 [facility] Comment on above: Performed By: #### 4 [id number] ####[facility] [address] [place] [address] Glenn Gudino M.D. [id number] MCV (RBC) [Entitic vol] 85.2 fL Normal 80.0-100.0 [facility] Comment on above: Performed By: #### 4 [id number] ####[facility] [address] [place] [address] Glenn Gudino M.D. [id number] MEAN CORPUSCULAR HEMOGLOBIN CONC 34.6 g/dL Normal 31.0-37.0 [facility] Comment on above: Performed By: #### 4 [id number] ####[facility] [address] [place], [place] [id number] Glenn Gudino M.D. [id number] Platelet mean volume (Bld) [Entitic vol] 10.3 fL Normal 9.4-12.4 [facility] Comment on above: Performed By: #### 4 [id number] ####[facility] [address] [place], [place] [id number] Glenn Gudino M.D. [id number] Platelets (Bld) [#/Vol] 126 10*3/uL Low 150-400 [facility] Comment on above: Result Comment: Resu lts checked Performed By: #### 4 [id number] ####[facility] [address] [place] [address] Glenn Gudino M.D. [id number] RBC (Bld) [#/Vol] 4.31 10*6/uL Normal 4.00-5.20 [facility] Comment on above: Performed By: #### 4 [id number] ####[facility] [address] [place], [place] [id number] Glenn Gudino M.D. [id number] WBC (Bld) [#/Vol] 12.24 10*3/uL High 4.50-11.00 [facility] Comment on above: Performed By: #### 4 [id number] ####[facility] [address] [place], [place] [id number] Glenn Gudino M.D. [id number] CPKon 01-25-2024 CPK 364 U/L High 40-170 [facility] Comment on above: Performed By: #### 4 8261 ####[facility] [address] [place] [address] Glenn Gudino M.D. [id number] MAGNESIUM LEVELon 01-25-2024 Magnesium [Mass/Vol] 2.5 mg/dL High 1.6-2.4 [facility] Comment on above: Performed By: #### 4 6109 ####[facility] [address] [place], [place] [id number] Glenn Gudino M.D. [id number] Magnesium [Mass/Vol] 2.5 mg/dL High 1.6-2.4 [facility] Comment on above: Performed By: #### 4 6109 ####[facility] [address] [place], [place] [id number] Glenn Gudino M.D. [id number] POC ARTERIAL BLOOD GAS PANEL -[facility] 01-25-2024 BASE EXCESS, ARTERIAL -5.1 Low -2.0-2.0 [facility] Comment on above: Performed By: #### 4 8719 ####[facility] [address] [place] [address] [id number] [facility] CALCIUM IONIZED 4.4 mg/dL Low 4.5-5.3 [facility] Comment on above: Performed By: #### 4 8716 ####[facility] [address] [place] [address] [id number] [facility] CARBOXYHEMOGLOBIN 1.2 % of total Hb Normal <=1.5 [facility] Comment on above: Result Comment: Refe rence Ranges:[facility] Non-smokers: <1.5%Smokers: 1.5-5.0%Heavy Smokers: 5.0-9.0% Performed By: #### 4 8716 ####[facility] [address] [place] [address] [id number] [facility] Chloride [Moles/Vol] 109 mmol/L High 98-108 [facility] Comment on above: Performed By: #### 4 8716 ####[facility] [address] [place] [address] [id number] [facility] Glucose [Mass/Vol] 78 mg/dL Normal 65-[address] [facility] Comment on above: Performed By: #### 4 8716 ####[facility] [address] [place] [address] [id number] [facility] HCO3 (Bld) [Moles/Vol] 19.1 mmol/L Low 22.0-26.0 [facility] Comment on above: Performed By: #### 4 8716 ####[facility] [address] [place] [address] [id number] [facility] Hematocrit (Bld) [Volume fraction] 34.0 % Low 36.0-46.0 [facility] Comment on above: Performed By: #### 4 8716 ####[facility] [address] [place] [address] [id number] [facility] Hemoglobin (Bld) [Mass/Vol] 11.1 g/dL Low 12.0-16.0 [facility] Comment on above: Performed By: #### 4 8716 ####[facility] [address] [place] [address] [id number] [facility] LACTIC ACID, WHOLE BLOOD 1.9 mmol/L Normal 0.6-2.0 [facility] Comment on above: Performed By: #### 4 8716 ####[facility] [address] [place] [address] [id number] [facility] LITER FLOW 4 Normal [facility] Comment on above: Performed By: #### 4 8716 ####[facility] [address] [place] [address] [id number] [facility] METHEMOGLOBIN < Normal 0.0-2.0 [facility] Comment on above: Performed By: #### 4 8716 ####[facility] [address] [place] [address] [id number] [facility] O2HB 97.6 % Normal 94.0-98.0 [facility] Comment on above: Performed By: #### 4 8716 ####[facility] [address] [place] [address] [id number] [facility] Oxygen saturation in Blood 99.3 % High 92.0-99.0 [facility] Comment on above: Performed By: #### 4 8716 ####[facility] [address] [place] [address] [id number] [facility] PCO2 ARTERIAL 32.0 mm Hg Low 35.0-45.0 [facility] Comment on above: Performed By: #### 4 8716 ####[facility] [address] [place] [address] [id number] [facility] PH ARTERIAL 7.39 Normal 7.35-7.45 [facility] Comment on above: Performed By: #### 4 8716 ####[facility] [address] [place] [address] [id number] [facility] PO2 ARTERIAL 132 mm Hg High 80-100 [facility] Comment on above: Performed By: #### 4 8716 ####[facility] [address] [place] [address] [id number] [facility] Potassium [Moles/Vol] 4.6 mmol/L Normal 3.5-5.1 [facility] Comment on above: Performed By: #### 4 8716 ####[facility] [address] [place] [address] [id number] [facility] RESULT NOTIFICATION [id number] Normal [facility] Comment on above: Performed By: #### 4 8716 ####[facility] [address] [place] [address] [id number] [facility] Sodium [Moles/Vol] 134 mmol/L Low 135-[address] [facility] Comment on above: Performed By: #### 4 8716 ####[facility] [address] [place] [address] [id number] [facility] POC GLUCOSE [facility] 024 Glucose [Mass/Vol] 79 mg/dL Normal 65-[address] [facility] Comment on above: Performed By: #### 4 2479 ####[facility] [address] [place] [address] [id number] [facility] Glucose [Mass/Vol] 74 mg/dL Normal 65-[address] [facility] Comment on above: Performed By: #### 4 5055 ####[facility] [address] [place] [address] [id number] [facility] Glucose [Mass/Vol] 96 mg/dL Normal 65-[address] [facility] Comment on above: Performed By: #### 4 3454 ####[facility] [address] [place] [address] [id number] [facility] Glucose [Mass/Vol] 65 mg/dL Normal 65-[address] [facility] Comment on above: Performed By: #### 4 7662 ####[facility] [address] [place] [address] [id number] [facility] Glucose [Mass/Vol] 34 mg/dL Off scale low 65-99 [facility] Comment on above: Order Comment: Criti cherrie result acted upon time of test. Test performed at bedside. Performed By: #### 4 6932 ####[facility] [address] [place] [address] [id number] [facility] Glucose [Mass/Vol] 77 mg/dL Normal 65-[address] [facility] Comment on above: Performed By: #### 4 6932 ####[facility] [address] [place] [address] [id number] [facility] Glucose [Mass/Vol] 50 mg/dL Low 65-[address] [facility] Comment on above: Performed By: #### 4 6932 ####[facility] [address] [place] [address] [id number] [facility] Glucose [Mass/Vol] 75 mg/dL Normal 65-[address] [facility] Comment on above: Performed By: #### 4 6932 ####[facility] [address] [place] [address] [id number] [facility] Glucose [Mass/Vol] 136 mg/dL High 65-[address] [facility] Comment on above: Performed By: #### 4 6932 ####[facility] [address] [place] [address] [id number] [facility] POTASSIUM LEVELon 01-25-2024 Potassium [Moles/Vol] 5.0 mmol/L Normal 3.5-5.1 [facility] Comment on above: Result Comment: Slig htly Hemolyzed Performed By: #### 4 6351 ####[facility] [address] [place] [address] Glenn Gudino M.D. [id number] Order Comment: [facility] has implemented the eGFR calculation approach that does not have a coefficient for race that conforms to the NKF-ASN Task Force Recommendations. Performed By: #### 4 6124 ####[facility] [address] [place] [address] Glenn Gudino M.D. [id number] PT/INRon 01-25-2024 INR Coag (PPP) [Relative time] 1.2 {INR} High 0.8-1.1 [facility] Comment on above: Order Comment: Jennifer retana the induction phase of oral anticoagulation, the INR may not reflect the anticoagulation status of the patient. Therapeutic ranges for INR's are:Most clinical situations: INR 2.0-3.0Mechanical Prosthetic Valve: INR 2.5-3.5Critical: INR >5.0 Performed By: #### 4 6391 ####[facility] [address] [place], [place] [id number] Glenn Gudino M.D. [id number] PT Coag (PPP) [Time] 15.5 s High 11.8-14.3 [facility] Comment on above: Order Comment: Jennifer retana the induction phase of oral anticoagulation, the INR may not reflect the anticoagulation status of the patient. Therapeutic ranges for INR's are:Most clinical situations: INR 2.0-3.0Mechanical Prosthetic Valve: INR 2.5-3.5Critical: INR >5.0 Performed By: #### 4 6391 ####[facility] [address] [place], [place] [address] Glenn Gudino M.D. [id number] RENAL FUNCTION PANELon 01-24 Albumin [Mass/Vol] 2.1 g/dL Low 3.2-5.[address] [facility] Comment on above: Order Comment: [facility] has implemented the eGFR calculation approach that does not have a coefficient for race that conforms to the NKF-ASN Task Force Recommendations. Performed By: #### 4 6449 ####[facility] [address] [place], [place] [address] Glenn Gudino M.D. [id number] Anion gap [Moles/Vol] 18 mmol/L Normal 10-20 [facility] Comment on above: Order Comment: [facility] has implemented the eGFR calculation approach that does not have a coefficient for race that conforms to the NKF-ASN Task Force Recommendations. Performed By: #### 4 6449 ####[facility] [address] [place], [place] [id number] Glenn Gudino M.D. [id number] Performed By: #### 4 6124 ####[facility] [address] [place] [address] Glenn Gudino M.D. [id number] Calcium [Mass/Vol] 7.5 mg/dL Low 8.4-10.[address] [facility] Comment on above: Order Comment: [facility] has implemented the eGFR calculation approach that does not have a coefficient for race that conforms to the NKF-ASN Task Force Recommendations. Performed By: #### 4 6449 ####[facility] [address] [place], [place] [address] Glenn Gudino M.D. [id number] Performed By: #### 4 6124 ####[facility] [address] [place], [place] [address] Glenn Gudino M.D. [id number] Chloride [Moles/Vol] 110 mmol/L High 98-108 [facility] Comment on above: Order Comment: [facility] has implemented the eGFR calculation approach that does not have a coefficient for race that conforms to the NKF-ASN Task Force Recommendations. Performed By: #### 4 6449 ####[facility] [address] [place] [address] Glenn Gudino M.D. [id number] Performed By: #### 4 6124 ####[facility] [address] [place], [place] [address] Glenn Gudino M.D. [id number] Creatinine [Mass/Vol] 1.99 mg/dL High 0.60-1.10 [facility] Comment on above: Order Comment: [facility] has implemented the eGFR calculation approach that does not have a coefficient for race that conforms to the NKF-ASN Task Force Recommendations. Performed By: #### 4 6449 ####[facility] [address] [place] [address] Glenn Gudino M.D. [id number] Performed By: #### 4 6124 ####[facility] [address] [place], [place] [address] Glenn Gudino M.D. [id number] EGFR 28 mL/min/1.73 m2 Low >=60 [facility] Comment on above: Order Comment: [facility] has implemented the eGFR calculation approach that does not have a coefficient for race that conforms to the NKF-ASN Task Force Recommendations. Result Comment: Joi mated GFR was calculated using the 2020 CKD-EPI creatinine equation.Estimated GFR was calculated using the 2020 CKD-EPI creatinine equation. Performed By: #### 4 6449 ####[facility] [address] [place], [place] [address] Glenn Gudino M.D. [id number] Result Comment: Joi mated GFR was calculated using the 2020 CKD-EPI creatinine equation. Performed By: #### 4 6124 ####[facility] [address] [place], [place] [address] Glenn Gudino M.D. [id number] Glucose [Mass/Vol] 127 mg/dL High 65-[address] [facility] Comment on above: Order Comment: [facility] has implemented the eGFR calculation approach that does not have a coefficient for race that conforms to the NKF-ASN Task Force Recommendations. Performed By: #### 4 6449 ####[facility] [address] [place] [address] Glenn Gudino M.D. [id number] Performed By: #### 4 6124 ####[facility] [address] [place], [place] [id number] Glenn Gudino M.D. [id number] HCO3 (Bld) [Moles/Vol] 17 mmol/L Low 21-32 [facility] Comment on above: Order Comment: [facility] has implemented the eGFR calculation approach that does not have a coefficient for race that conforms to the NKF-ASN Task Force Recommendations. Performed By: #### 4 6449 ####[facility] [address] [place] [address] Glenn Gudino M.D. [id number] Performed By: #### 4 6124 ####[facility] [address] [place], [place] [address] Glenn Gudino M.D. [id number] Phosphate [Mass/Vol] 5.4 mg/dL High 2.8-4.1 [facility] Comment on above: Order Comment: [facility] has implemented the eGFR calculation approach that does not have a coefficient for race that conforms to the NKF-ASN Task Force Recommendations. Performed By: #### 4 6449 ####[facility] [address] [place], [place] [address] Glenn Gudino M.D. [id number] Potassium [Moles/Vol] 5.0 mmol/L Normal 3.5-5.1 [facility] Comment on above: Order Comment: [facility] has implemented the eGFR calculation approach that does not have a coefficient for race that conforms to the NKF-ASN Task Force Recommendations. Result Comment: Slig htly Hemolyzed Performed By: #### 4 6449 ####[facility] [address] [place] [address] Glenn Gudino M.D. [id number] Performed By: #### 4 6124 ####[facility] [address] [place], [place] [address] Glenn Gudino M.D. [id number] Sodium [Moles/Vol] 140 mmol/L Normal 135-[address] [facility] Comment on above: Order Comment: [facility] has implemented the eGFR calculation approach that does not have a coefficient for race that conforms to the NKF-ASN Task Force Recommendations. Performed By: #### 4 6449 ####[facility] [address] [place] [address] Glenn Gudino M.D. [id number] Performed By: #### 4 6124 ####[facility] [address] [place], [place] [address] Glenn Gudino M.D. [id number] Urea nitrogen [Mass/Vol] 30 mg/dL High 8-25 [facility] Comment on above: Order Comment: [facility] has implemented the eGFR calculation approach that does not have a coefficient for race that conforms to the NKF-ASN Task Force Recommendations. Performed By: #### 4 6449 ####[facility] [address] [place] [address] Glenn Gudino M.D. [id number] Performed By: #### 4 6124 ####[facility] [address] [place], [place] [address] Glenn Gudino M.D. [id number] Urea nitrogen/Creatinine [Mass ratio] 15.1 mg/mg Normal 10.0-20.0 [facility] Comment on above: Order Comment: [facility] has implemented the eGFR calculation approach that does not have a coefficient for race that conforms to the NKF-ASN Task Force Recommendations. Performed By: #### 4 6449 ####[facility] [address] [place], [place] [address] Glenn Gudino M.D. [id number] Performed By: #### 4 6124 ####[facility] [address] [place] [address] Glenn Gudino M.D. [id number] XR CHEST PA/APon 01-25-2024 XR CHEST PA/AP [facility] Comment on above: Order Comment: Injur y/Trauma or Illness?:Illness/OtherHow long have you had these symptoms (acute/chronic)?:AcuteReason for exam?:ettHistory of cancer?:uSurgeries, chemotherapy, or radiation?:uType of Exam?:OngoingAdditional signs and symptoms?:ett ANTIBODY IDENTIFICATION ARC- Con 01-24-2024 ANTIBODY IDENTIFICATION ARC-C [facility] Comment on above: Performed By: #### A BIDARC_Anti-C ####[facility] [address] [place] [address] Nurys Oneill MD [id number] RMHTS ANTIBODY IDENTIFICATION ARC- FYAon 01-24-2024 ANTIBODY IDENTIFICATION ARC-FYA [facility] Comment on above: Performed By: #### A BIDARC_Anti-Fya ####[facility] [address] [place] [address] Nurys Oneill MD [id number] [facility] ANTIBODY IDENTIFICATION ARC- INCon 01-24-2024 ANTIBODY IDENTIFICATION ARC-INC [facility] Comment on above: Performed By: #### A BIDARC_Inconclusive ####[facility] [address] [place] [address] Nurys Oneill MD [id number] [facility] APTTon 01-24-2024 aPTT Coag (Bld) [Time] 37 s High 23-34 [facility] Comment on above: Order Comment: Thera peutic range for APTT's is 68 - 104 seconds Result Comment: Resu lts checked. Performed By: #### 4 5113 ####[facility] [address] [place] [address] Glenn Gudino M.D. [id number] BASIC METABOLIC PANELon 12-28 Anion gap [Moles/Vol] 15 mmol/L Normal 10-20 [facility] Comment on above: Order Comment: [facility] has implemented the eGFR calculation approach that does not have a coefficient for race that conforms to the NKF-ASN Task Force Recommendations. Performed By: #### 4 6124 ####[facility] [address] [place] [address] Glenn Gudino M.D. [id number] Calcium [Mass/Vol] 7.6 mg/dL Low 8.4-10.[address] [facility] Comment on above: Order Comment: [facility] has implemented the eGFR calculation approach that does not have a coefficient for race that conforms to the NKF-ASN Task Force Recommendations. Performed By: #### 4 6124 ####[facility] [address] [place] [address] Glenn Gudino M.D. [id number] Chloride [Moles/Vol] 111 mmol/L High 98-108 [facility] Comment on above: Order Comment: [facility] has implemented the eGFR calculation approach that does not have a coefficient for race that conforms to the NKF-ASN Task Force Recommendations. Performed By: #### 4 6124 ####[facility] [address] [place] [address] Glenn Gudino M.D. [id number] Creatinine [Mass/Vol] 1.77 mg/dL High 0.60-1.10 [facility] Comment on above: Order Comment: [facility] has implemented the eGFR calculation approach that does not have a coefficient for race that conforms to the NKF-ASN Task Force Recommendations. Performed By: #### 4 6124 ####[facility] [address] [place] [address] Glenn Gudino M.D. [id number] EGFR 32 mL/min/1.73 m2 Low >=60 [facility] Comment on above: Order Comment: [facility] has implemented the eGFR calculation approach that does not have a coefficient for race that conforms to the NKF-ASN Task Force Recommendations. Result Comment: Joi mated GFR was calculated using the 2020 CKD-EPI creatinine equation. Performed By: #### 4 6124 ####[facility] [address] [place] [address] Glenn Gudino M.D. [id number] Glucose [Mass/Vol] 164 mg/dL High 65-[address] [facility] Comment on above: Order Comment: [facility] has implemented the eGFR calculation approach that does not have a coefficient for race that conforms to the NKF-ASN Task Force Recommendations. Performed By: #### 4 6124 ####[facility] [address] [place] [address] Glenn Gudino M.D. [id number] HCO3 (Bld) [Moles/Vol] 18 mmol/L Low 21-32 [facility] Comment on above: Order Comment: [facility] has implemented the eGFR calculation approach that does not have a coefficient for race that conforms to the NKF-ASN Task Force Recommendations. Performed By: #### 4 6124 ####[facility] [address] [place], [place] [address] Glenn Gudino M.D. [id number] Potassium [Moles/Vol] 4.7 mmol/L Normal 3.5-5.1 [facility] Comment on above: Order Comment: [facility] has implemented the eGFR calculation approach that does not have a coefficient for race that conforms to the NKF-ASN Task Force Recommendations. Performed By: #### 4 6124 ####[facility] [address] [place], [place] [address] Glenn Gudino M.D. [id number] Sodium [Moles/Vol] 139 mmol/L Normal 135-[address] [facility] Comment on above: Order Comment: [facility] has implemented the eGFR calculation approach that does not have a coefficient for race that conforms to the NKF-ASN Task Force Recommendations. Performed By: #### 4 6124 ####[facility] [address] [place], [place] [address] Glenn Gudino M.D. [id number] Urea nitrogen [Mass/Vol] 27 mg/dL High 8-25 [facility] Comment on above: Order Comment: [facility] has implemented the eGFR calculation approach that does not have a coefficient for race that conforms to the NKF-ASN Task Force Recommendations. Performed By: #### 4 6124 ####[facility] [address] [place], [place] [address] Glenn Gudino M.D. [id number] Urea nitrogen/Creatinine [Mass ratio] 15.3 mg/mg Normal 10.0-20.0 [facility] Comment on above: Order Comment: [facility] has implemented the eGFR calculation approach that does not have a coefficient for race that conforms to the NKF-ASN Task Force Recommendations. Performed By: #### 4 6124 ####[facility] [address] [place], [place] [address] Glenn Gudino M.D. [id number] Anion gap [Moles/Vol] 16 mmol/L Normal 10-20 [facility] Comment on above: Order Comment: [facility] has implemented the eGFR calculation approach that does not have a coefficient for race that conforms to the NKF-ASN Task Force Recommendations. Performed By: #### 4 6127 ####[facility] [address] [place] [address] Glenn Gudino M.D. [id number] Performed By: #### 4 6116 ####[facility] [address] [place] [address] Glenn Gudino M.D. [id number] Calcium [Mass/Vol] 6.2 mg/dL Low 8.4-10.[address] [facility] Comment on above: Order Comment: [facility] has implemented the eGFR calculation approach that does not have a coefficient for race that conforms to the NKF-ASN Task Force Recommendations. Performed By: #### 4 6168 ####[facility] [address] [address] Glenn Gudino M.D. [id number] Performed By: #### 4 6126 ####[facility] [address] [place], [place] [address] Glenn Gudino M.D. [id number] Chloride [Moles/Vol] 115 mmol/L High 98-108 [facility] Comment on above: Order Comment: [facility] has implemented the eGFR calculation approach that does not have a coefficient for race that conforms to the NKF-ASN Task Force Recommendations. Performed By: #### 4 6124 ####[facility] [address] [place] [address] Glenn Gudino M.D. [id number] Performed By: #### 4 6126 ####[facility] [address] [place] [address] Glenn Gudino M.D. [id number] Creatinine [Mass/Vol] 1.54 mg/dL High 0.60-1.10 [facility] Comment on above: Order Comment: [facility] has implemented the eGFR calculation approach that does not have a coefficient for race that conforms to the NKF-ASN Task Force Recommendations. Performed By: #### 4 6124 ####[facility] [address] [place] [address] Glenn Gudino M.D. [id number] Performed By: #### 4 6126 ####[facility] [address] [place], [place] [address] Glenn Gudino M.D. [id number] EGFR 38 mL/min/1.73 m2 Low >=60 [facility] Comment on above: Order Comment: [facility] has implemented the eGFR calculation approach that does not have a coefficient for race that conforms to the NKF-ASN Task Force Recommendations. Result Comment: Joi mated GFR was calculated using the 2020 CKD-EPI creatinine equation.Estimated GFR was calculated using the 2020 CKD-EPI creatinine equation. Performed By: #### 4 6124 ####[facility] [address] [place], [place] [id number] Glenn Gudino M.D. [id number] Result Comment: Joi mated GFR was calculated using the 2020 CKD-EPI creatinine equation. Performed By: #### 4 6115 ####[facility] [address] [place], [place] [id number] Glenn Gudino M.D. [id number] Glucose [Mass/Vol] 122 mg/dL High 65-[address] [facility] Comment on above: Order Comment: [facility] has implemented the eGFR calculation approach that does not have a coefficient for race that conforms to the NKF-ASN Task Force Recommendations. Performed By: #### 4 6124 ####[facility] [address] [place], [place] [id number] Glenn Gudino M.D. [id number] Performed By: #### 4 6126 ####[facility] [address] [place], [place] [id number] Glenn Gudino M.D. [id number] HCO3 (Bld) [Moles/Vol] 13 mmol/L Low 21-32 [facility] Comment on above: Order Comment: [facility] has implemented the eGFR calculation approach that does not have a coefficient for race that conforms to the NKF-ASN Task Force Recommendations. Performed By: #### 4 6148 ####[facility] [address] [place], [place] [id number] Glenn Gudino M.D. [id number] Performed By: #### 4 6136 ####[facility] [address] [place], [place] [id number] Glenn Gudino M.D. [id number] Potassium [Moles/Vol] 5.1 mmol/L Normal 3.5-5.1 [facility] Comment on above: Order Comment: [facility] has implemented the eGFR calculation approach that does not have a coefficient for race that conforms to the NKF-ASN Task Force Recommendations. Result Comment: Marisol leblanc Hemolyzed Performed By: #### 4 6124 ####[facility] [address] [place] [address] Glenn Gudino M.D. [id number] Performed By: #### 4 6126 ####[facility] [address] [place] [address] Glenn Gudino M.D. [id number] Sodium [Moles/Vol] 139 mmol/L Normal 135-[address] [facility] Comment on above: Order Comment: [facility] has implemented the eGFR calculation approach that does not have a coefficient for race that conforms to the NKF-ASN Task Force Recommendations. Performed By: #### 4 6124 ####[facility] [address] [place] [address] Glenn Gudino M.D. [id number] Performed By: #### 4 6126 ####[facility] [address] [place], [place] [id number] Glenn Gudino M.D. [id number] Urea nitrogen [Mass/Vol] 25 mg/dL Normal 8-25 [facility] Comment on above: Order Comment: [facility] has implemented the eGFR calculation approach that does not have a coefficient for race that conforms to the NKF-ASN Task Force Recommendations. Performed By: #### 4 6124 ####[facility] [address] [place], [place] [id number] Glenn Gudino M.D. [id number] Performed By: #### 4 6126 ####[facility] [address] [place] [address] Glenn Gudino M.D. [id number] Urea nitrogen/Creatinine [Mass ratio] 16.2 mg/mg Normal 10.0-20.0 [facility] Comment on above: Order Comment: [facility] has implemented the eGFR calculation approach that does not have a coefficient for race that conforms to the NKF-ASN Task Force Recommendations. Performed By: #### 4 6124 ####[facility] [address] [place] [address] Glenn Gudino M.D. [id number] Performed By: #### 4 6126 ####[facility] [address] [place] [address] Glenn Gudino M.D. [id number] CALCIUM, IONIZEDon CALCIUM IONIZED 4.5 mg/dL Normal 4.5-5.3 [facility] Comment on above: Performed By: #### 4 5190 ####[facility] [address] [place], [place] [id number] Glenn Gudino M.D. [id number] CBCon 01-24-2024 AUTO NRBC 0.0 % Normal [facility] Comment on above: Performed By: #### 4 5218 ####[facility] [address] [place], [place] [id number] Glenn Gudino M.D. [id number] AUTO NRBC ABS COUNT 0.00 K/mcL Normal 0.00-0.00 [facility] Comment on above: Performed By: #### 4 [id number] ####[facility] [address] [place], [place] [id number] Glenn Gudino M.D. [id number] Erythrocyte distribution width (RBC) [Ratio] 16.2 % High 11.6-14.8 [facility] Comment on above: Performed By: #### 4 5218 ####[facility] [address] [place], [place] [id number] Glenn Gudino M.D. [id number] Hematocrit (Bld) [Volume fraction] 32.4 % Low 36.0-46.0 [facility] Comment on above: Performed By: #### 4 5218 ####[facility] [address] [place], [place] [id number] Glenn Gudino M.D. [id number] Hemoglobin (Bld) [Mass/Vol] 10.5 g/dL Low 12.0-16.0 [facility] Comment on above: Performed By: #### 4 5218 ####[facility] [address] [place] [address] Glenn Gudnio M.D. [id number] MCH (RBC) [Entitic mass] 29.2 pg Normal 26.0-34.0 [facility] Comment on above: Performed By: #### 4 [id number] ####[facility] [address] [place] [address] Glenn Gudino M.D. [id number] MCV (RBC) [Entitic vol] 90.0 fL Normal 80.0-100.0 [facility] Comment on above: Performed By: #### 4 [id number] ####[facility] [address] [place], [place] [id number] Glenn Gudino M.D. [id number] MEAN CORPUSCULAR HEMOGLOBIN CONC 32.4 g/dL Normal 31.0-37.0 [facility] Comment on above: Performed By: #### 4 [id number] ####[facility] [address] [place] [address] Glenn Gudino M.D. [id number] Platelet mean volume (Bld) [Entitic vol] 9.8 fL Normal 9.4-12.4 [facility] Comment on above: Performed By: #### 4 5218 ####[facility] [address] [place], [place] [id number] Glenn Gudino M.D. [id number] Platelets (Bld) [#/Vol] 68 10*3/uL Low 150-400 [facility] Comment on above: Result Comment: Zuleima pheral smear reviewed manually Performed By: #### 4 5218 ####[facility] [address] [place], [place] [id number] Glenn Gudino M.D. [id number] RBC (Bld) [#/Vol] 3.60 10*6/uL Low 4.00-5.20 [facility] Comment on above: Performed By: #### 4 [id number] ####[facility] [address] [place] [address] Glenn Gudino M.D. [id number] WBC (Bld) [#/Vol] 9.35 10*3/uL Normal 4.50-11.00 [facility] Comment on above: Result Comment: Neut rophilia with Left Shift Confirmed. Performed By: #### 4 [id number] ####[facility] [address] [place], [place] [id number] Glenn Gudino M.D. [id number] AUTO NRBC 0.0 % Normal [facility] Comment on above: Performed By: #### 4 5218 ####[facility] [address] [place], [place] [id number] Glenn Gudino M.D. [id number] AUTO NRBC ABS COUNT 0.00 K/mcL Normal 0.00-0.00 [facility] Comment on above: Performed By: #### 4 [id number] ####[facility] [address] [place], [place] [address] Glenn Guidno M.D. [id number] Erythrocyte distribution width (RBC) [Ratio] 17.1 % High 11.6-14.8 [facility] Comment on above: Performed By: #### 4 5218 ####[facility] [address] [place], [place] [id number] Glenn Gudino M.D. [id number] Hematocrit (Bld) [Volume fraction] 38.0 % Normal 36.0-46.0 [facility] Comment on above: Result Comment: Resu lts checked Performed By: #### 4 5218 ####[facility] [address] [place], [place] [id number] Glenn Gudino M.D. [id number] Hemoglobin (Bld) [Mass/Vol] 12.3 g/dL Normal 12.0-16.0 [facility] Comment on above: Result Comment: Resu lts checked Performed By: #### 4 [id number] ####[facility] [address] [place] [address] Glenn Gudino M.D. [id number] MCH (RBC) [Entitic mass] 28.0 pg Normal 26.0-34.0 [facility] Comment on above: Performed By: #### 4 [id number] ####[facility] [address] [place] [address] Glenn Gudino M.D. [id number] MCV (RBC) [Entitic vol] 86.4 fL Normal 80.0-100.0 [facility] Comment on above: Performed By: #### 4 5218 ####[facility] [address] [place], [place] [id number] Glenn Gudino M.D. [id number] MEAN CORPUSCULAR HEMOGLOBIN CONC 32.4 g/dL Normal 31.0-37.0 [facility] Comment on above: Performed By: #### 4 5218 ####[facility] [address] [place], [place] [address] Glenn Gudino M.D. [id number] Platelet mean volume (Bld) [Entitic vol] 9.3 fL Low 9.4-12.4 [facility] Comment on above: Performed By: #### 4 5218 ####[facility] [address] [place], [place] [id number] Glenn Gudino M.D. [id number] Platelets (Bld) [#/Vol] 201 10*3/uL Normal 150-400 [facility] Comment on above: Performed By: #### 4 [id number] ####[facility] [address] [place], [place] [id number] Glenn Gudino M.D. [id number] RBC (Bld) [#/Vol] 4.40 10*6/uL Normal 4.00-5.20 [facility] Comment on above: Performed By: #### 4 [id number] ####[facility] [address] [place] [address] Glenn Gudino M.D. [id number] WBC (Bld) [#/Vol] 6.12 10*3/uL Normal 4.50-11.00 [facility] Comment on above: Performed By: #### 4 5218 ####[facility] [address] [place], [place] [id number] Glenn Gudino M.D. [id number] CITRATED TEG (OK [facility] AND [facility] ONLY)on 01-24-2024 (CFF-MA) CITRATED FUNCTIONAL FIBRINOGEN - MA 12.3 mm Low 15.0-32.0 [facility] Comment on above: Performed By: #### 4 8962 ####[facility] [address] [place], [place] [address] Glenn Gudino M.D. [id number] ([id number]) CITRATED KAOLIN - LYSIS 30 MIN AFTER MA 0.0 % Normal 0.0-2.6 [facility] Comment on above: Performed By: #### 4 8995 ####[facility] [address] [place], [place] [address] Glenn Gudino M.D. [id number] (CK-R) CITRATED KAOLIN - REACTION TIME 6.7 min Normal 4.6-9.1 [facility] Comment on above: Performed By: #### 4 8974 ####[facility] [address] [place], [place] [address] Glenn Gudino M.D. [id number] (KITCHEN CLEANER-MA) CITRATED RAPID TEG - [place] 41.8 mm Low 52.0-70.0 [facility] Comment on above: Performed By: #### 4 8962 ####[facility] [address] [place], [place] [address] Glenn Gudino M.D. [id number] COMPREHENSIVE METABOLIC PANE Magdaleno 01-24-2024 Albumin [Mass/Vol] 1.1 g/dL Low 3.2-5.[address] [facility] Comment on above: Order Comment: [facility] has implemented the eGFR calculation approach that does not have a coefficient for race that conforms to the NKF-ASN Task Force Recommendations. Performed By: #### 4 6126 ####[facility] [address] [place], [place] [address] Glenn Gudino M.D. [id number] ALP [Catalytic activity/Vol] 23 U/L Low 40-150 [facility] Comment on above: Order Comment: [facility] has implemented the eGFR calculation approach that does not have a coefficient for race that conforms to the NKF-ASN Task Force Recommendations. Performed By: #### 4 6126 ####[facility] [address] [place], [place] [address] Glenn Gudino M.D. [id number] ALT [Catalytic activity/Vol] 10 U/L Normal 0-35 U/L [facility] Comment on above: Order Comment: [facility] has implemented the eGFR calculation approach that does not have a coefficient for race that conforms to the NKF-ASN Task Force Recommendations. Performed By: #### 4 6126 ####[facility] [address] [place], [place] [address] Glenn Gudino M.D. [id number] AST [Catalytic activity/Vol] 27 U/L Normal 0-35 U/L [facility] Comment on above: Order Comment: [facility] has implemented the eGFR calculation approach that does not have a coefficient for race that conforms to the NKF-ASN Task Force Recommendations. Result Comment: Marisol htly Hemolyzed Performed By: #### 4 6126 ####[facility] [address] [place] [address] Glenn Gudino M.D. [id number] BILIRUBIN TOTAL < Normal 0.0-1.3 [facility] Comment on above: Order Comment: [facility] has implemented the eGFR calculation approach that does not have a coefficient for race that conforms to the NKF-ASN Task Force Recommendations. Performed By: #### 4 6126 ####[facility] [address] [place] [address] Glenn Gudino M.D. [id number] Protein [Mass/Vol] 2.5 g/dL Low 6.0-8.[address] [facility] Comment on above: Order Comment: [facility] has implemented the eGFR calculation approach that does not have a coefficient for race that conforms to the NKF-ASN Task Force Recommendations. Performed By: #### 4 6126 ####[facility] [address] [place] [address] Glenn Gudino M.D. [id number] Albumin [Mass/Vol] 2.9 g/dL Low 3.2-5.[address] [facility] Comment on above: Order Comment: [facility] has implemented the eGFR calculation approach that does not have a coefficient for race that conforms to the NKF-ASN Task Force Recommendations. Performed By: #### 4 6126 ####[facility] [address] [place] [address] Glenn Gudino M.D. [id number] ALP [Catalytic activity/Vol] 67 U/L Normal 40-150 [facility] Comment on above: Order Comment: [facility] has implemented the eGFR calculation approach that does not have a coefficient for race that conforms to the NKF-ASN Task Force Recommendations. Performed By: #### 4 6126 ####[facility] [address] [place] [address] Glenn Gudino M.D. [id number] ALT [Catalytic activity/Vol] 11 U/L Normal 0-35 U/L [facility] Comment on above: Order Comment: [facility] has implemented the eGFR calculation approach that does not have a coefficient for race that conforms to the NKF-ASN Task Force Recommendations. Performed By: #### 4 6126 ####[facility] [address] [place] [address] Glenn Gudino M.D. [id number] Anion gap [Moles/Vol] 15 mmol/L Normal 10-20 [facility] Comment on above: Order Comment: [facility] has implemented the eGFR calculation approach that does not have a coefficient for race that conforms to the NKF-ASN Task Force Recommendations. Performed By: #### 4 6126 ####[facility] [address] [place] [address] Glenn Gudino M.D. [id number] AST [Catalytic activity/Vol] 23 U/L Normal 0-35 U/L [facility] Comment on above: Order Comment: [facility] has implemented the eGFR calculation approach that does not have a coefficient for race that conforms to the NKF-ASN Task Force Recommendations. Performed By: #### 4 6126 ####[facility] [address] [place] [address] Glenn Gudino M.D. [id number] Bilirubin [Mass/Vol] 0.6 mg/dL Normal 0.0-1.3 [facility] Comment on above: Order Comment: [facility] has implemented the eGFR calculation approach that does not have a coefficient for race that conforms to the NKF-ASN Task Force Recommendations. Performed By: #### 4 6126 ####[facility] [address] [place], [place] [address] Glenn Gudino M.D. [id number] Calcium [Mass/Vol] 8.1 mg/dL Low 8.4-10.[address] [facility] Comment on above: Order Comment: [facility] has implemented the eGFR calculation approach that does not have a coefficient for race that conforms to the NKF-ASN Task Force Recommendations. Performed By: #### 4 6126 ####[facility] [address] [place], [place] [address] Glenn Gudino M.D. [id number] Chloride [Moles/Vol] 102 mmol/L Normal 98-108 [facility] Comment on above: Order Comment: [facility] has implemented the eGFR calculation approach that does not have a coefficient for race that conforms to the NKF-ASN Task Force Recommendations. Performed By: #### 4 6126 ####[facility] [address] [place], [place] [address] Glenn Gudino M.D. [id number] Creatinine [Mass/Vol] 1.88 mg/dL High 0.60-1.10 [facility] Comment on above: Order Comment: [facility] has implemented the eGFR calculation approach that does not have a coefficient for race that conforms to the NKF-ASN Task Force Recommendations. Performed By: #### 4 6126 ####[facility] [address] [place] [address] Glenn Gudino M.D. [id number] EGFR 30 mL/min/1.73 m2 Low >=60 [facility] Comment on above: Order Comment: [facility] has implemented the eGFR calculation approach that does not have a coefficient for race that conforms to the NKF-ASN Task Force Recommendations. Result Comment: Joi mated GFR was calculated using the 2020 CKD-EPI creatinine equation. Performed By: #### 4 6126 ####[facility] [address] [place] [address] Glenn Gudino M.D. [id number] Glucose [Mass/Vol] 83 mg/dL Normal 65-[address] [facility] Comment on above: Order Comment: [facility] has implemented the eGFR calculation approach that does not have a coefficient for race that conforms to the NKF-ASN Task Force Recommendations. Performed By: #### 4 6126 ####[facility] [address] [place] [address] Glenn Gudino M.D. [id number] HCO3 (Bld) [Moles/Vol] 20 mmol/L Low 21-32 [facility] Comment on above: Order Comment: [facility] has implemented the eGFR calculation approach that does not have a coefficient for race that conforms to the NKF-ASN Task Force Recommendations. Performed By: #### 4 6126 ####[facility] [address] [place], [place] [address] Glenn Gudino M.D. [id number] Potassium [Moles/Vol] 4.5 mmol/L Normal 3.5-5.1 [facility] Comment on above: Order Comment: [facility] has implemented the eGFR calculation approach that does not have a coefficient for race that conforms to the NKF-ASN Task Force Recommendations. Performed By: #### 4 6126 ####[facility] [address] [place] [address] Glenn Gudino M.D. [id number] Protein [Mass/Vol] 6.7 g/dL Normal 6.0-8.[address] [facility] Comment on above: Order Comment: [facility] has implemented the eGFR calculation approach that does not have a coefficient for race that conforms to the NKF-ASN Task Force Recommendations. Performed By: #### 4 6126 ####[facility] [address] [place], [place] [address] Glenn Gudino M.D. [id number] Sodium [Moles/Vol] 132 mmol/L Low 135-[address] [facility] Comment on above: Order Comment: [facility] has implemented the eGFR calculation approach that does not have a coefficient for race that conforms to the NKF-ASN Task Force Recommendations. Performed By: #### 4 6126 ####[facility] [address] [place] [address] Glenn Gudino M.D. [id number] Urea nitrogen [Mass/Vol] 33 mg/dL High 8-25 [facility] Comment on above: Order Comment: [facility] has implemented the eGFR calculation approach that does not have a coefficient for race that conforms to the NKF-ASN Task Force Recommendations. Performed By: #### 4 6126 ####[facility] [address] [place], [place] [address] Glenn Gudino M.D. [id number] Urea nitrogen/Creatinine [Mass ratio] 17.6 mg/mg Normal 10.0-20.0 [facility] Comment on above: Order Comment: [facility] has implemented the eGFR calculation approach that does not have a coefficient for race that conforms to the NKF-ASN Task Force Recommendations. Performed By: #### 4 6126 ####[facility] [address] [place] [address] Glenn Gudino M.D. [id number] CONSULTon 01-24-2024 CONSULT Normal [facility] ELUTIONARC-WAAon 01-24-2024 ELUTIONARC-DCA Normal [facility] Comment on above: Performed By: #### E [id number]_WAA ####[facility] [address] [place] [address] Nurys Oneill MD [id number] RMS FIBRINOGENon 01-24-2024 FIBRINOGEN LEVEL 302 mg/dL Normal 224-483 [facility] Comment on above: Performed By: #### 4 5616 ####[facility] [address] [place], [place] [id number] Glenn Gudino M.D. [id number] LACTIC ACID, PLASMAon 2023 LACTIC ACID, PLASMA 5.3 mmol/L Off scale high 0.6-2.0 [facility] Comment on above: Performed By: #### 4 6053 ####[facility] [address] [place] [address] Glenn Gudino M.D. [id number] MAGNESIUM LEVELon 01-24-2024 Magnesium [Mass/Vol] 1.3 mg/dL Low 1.6-2.4 [facility] Comment on above: Performed By: #### 4 6109 ####[facility] [address] [place] [address] Glenn Gudino M.D. [id number] AUT[employer]BILE INSURANCE CLAIM EXAMINER AEROBIC AND A NAEROBIC CULTUREon 01-24-2024 AUTOMOBILE INSURANCE CLAIM EXAMINER AEROBIC AND ANAEROBIC CULTURE CULTURE No Growth after 5 days GRAM STAIN RESULT Many RBC Many WBC No Organisms Seen [facility] Comment on above: Performed By: #### L [id number] ####[facility] [address] [place] [address] Glenn Gudino M.D. [id number] AUTOMOBILE INSURANCE CLAIM EXAMINER AFB CULTUREon 01-24-2024 AUTOMOBILE INSURANCE CLAIM EXAMINER AFB CULTURE AFB CULTURE No Growth of Acid Fast Bacilli after 8 Weeks AFB STAIN (2018) No Acid Fast Bacilli Seen Normal [facility] Comment on above: Performed By: #### L [id number] ####[facility] [address] [place] [address] Glenn Gudino M.D. [id number] AUTOMOBILE INSURANCE CLAIM EXAMINER FUNGUS CULTUR Tim 01-24-2024 AUTOMOBILE INSURANCE CLAIM EXAMINER FUNGUS CULTURE FUNGUS CULTURE No Fungus Isolated At 4 Weeks FUNGAL SMEAR No Fungal or Yeast Elements Normal [facility] Comment on above: Performed By: #### L [id number] ####[facility] [address] [place] [address] Glenn Gudino M.D. [id number] OP NOTEon 01-24-2024 OP NOTE Normal [facility] OP NOTE Normal [facility] PERIPHERAL SMEAR REVIEW ([facility] ONLY)on 01-24-2024 SMEAR REVIEW See Comment Normal [facility] Comment on above: Result Comment: Smea r reviewed for possible immature cells. Performed By: #### C [id number] ####[facility] [address] [place] [address] Glenn Gudino M.D. [id number] PHOSPHORUSon 01-24-2024 Phosphate [Mass/Vol] 4.7 mg/dL High 2.8-4.1 [facility] Comment on above: Performed By: #### 4 6299 ####[facility] [address] [place], [place] [id number] Glenn Gudino M.D. [id number] POC ABG SURG - RALSon 2023 BASE EXCESS, ARTERIAL ISTAT -11 Low -2-2 [facility] Comment on above: Order Comment: Criti cherrie result acted upon time of test. Test performed at bedside. Performed By: #### 4 8737 ####[facility] [address] [place] [address] [id number] [facility] Glucose [Mass/Vol] 267 mg/dL High 65-[address] [facility] Comment on above: Order Comment: Criti cherrie result acted upon time of test. Test performed at bedside. Performed By: #### 4 8737 ####[facility] [address] [place] [address] [id number] [facility] HCO3 (Bld) [Moles/Vol] 14.4 mmol/L Low 22.0-26.0 [facility] Comment on above: Order Comment: Criti cherrie result acted upon time of test. Test performed at bedside. Performed By: #### 4 8737 ####[facility] [address] [place] [address] [id number] [facility] Hematocrit (Bld) [Volume fraction] 20 % Low 36-46 [facility] Comment on above: Order Comment: Criti cherrie result acted upon time of test. Test performed at bedside. Performed By: #### 4 8737 ####[facility] [address] [place] [address] [id number] [facility] Hemoglobin (Bld) [Mass/Vol] 6.8 g/dL Off scale low 12.0-16.0 [facility] Comment on above: Order Comment: Criti cherrie result acted upon time of test. Test performed at bedside. Performed By: #### 4 8737 ####[facility] [address] [place] [address] [id number] [facility] Oxygen saturation in Blood 100.0 % High 92.0-99.0 [facility] Comment on above: Order Comment: Criti cherrie result acted upon time of test. Test performed at bedside. Performed By: #### 4 [id number] ####[facility] [address] [place] [address] [id number] [facility] PCO2 ARTERIAL 31.2 mm Hg Low 35.0-45.0 [facility] Comment on above: Order Comment: Criti cherrie result acted upon time of test. Test performed at bedside. Performed By: #### 4 8737 ####[facility] [address] [place] [address] [id number] [facility] PH ARTERIAL 7.27 Low 7.35-7.45 [facility] Comment on above: Order Comment: Criti cherrie result acted upon time of test. Test performed at bedside. Performed By: #### 4 8708 ####[facility] [address] [place] [address] [id number] [facility] PO2 ARTERIAL 464 mm Hg High 80-100 [facility] Comment on above: Order Comment: Criti cherrie result acted upon time of test. Test performed at bedside. Performed By: #### 4 8763 ####[facility] [address] [place] [address] [id number] [facility] POC IONIZED CALCIUM 3.5 mg/dL Low 4.5-5.3 [facility] Comment on above: Order Comment: Criti cherrie result acted upon time of test. Test performed at bedside. Performed By: #### 4 8753 ####[facility] [address] [place] [address] [id number] [facility] Potassium [Moles/Vol] 3.9 mmol/L Normal 3.5-5.1 [facility] Comment on above: Order Comment: Criti cherrie result acted upon time of test. Test performed at bedside. Performed By: #### 4 4753 ####[facility] [address] [place] [address] [id number] [facility] Sodium [Moles/Vol] 140 mmol/L Normal 135-[address] [facility] Comment on above: Order Comment: Criti cherrie result acted upon time of test. Test performed at bedside. Performed By: #### 4 8062 ####[facility] [address] [place] [address] [id number] [facility] BASE EXCESS, ARTERIAL ISTAT -12 Low -2-2 [facility] Comment on above: Performed By: #### 4 1730 ####[facility] [address] [place] [address] [id number] [facility] Glucose [Mass/Vol] 164 mg/dL High 65-[address] [facility] Comment on above: Performed By: #### 4 9218 ####[facility] [address] [place] [address] [id number] [facility] HCO3 (Bld) [Moles/Vol] 14.8 mmol/L Low 22.0-26.0 [facility] Comment on above: Performed By: #### 4 9200 ####[facility] [address] [place] [address] [id number] [facility] Hematocrit (Bld) [Volume fraction] 32 % Low 36-46 [facility] Comment on above: Performed By: #### 4 5974 ####[facility] [address] [place] [address] [id number] [facility] Hemoglobin (Bld) [Mass/Vol] 10.9 g/dL Low 12.0-16.0 [facility] Comment on above: Performed By: #### 4 8737 ####[facility] [address] [place] [address] [id number] [facility] Oxygen saturation in Blood 100.0 % High 92.0-99.0 [facility] Comment on above: Performed By: #### 4 8700 ####[facility] [address] [place] [address] [id number] [facility] PCO2 ARTERIAL 36.0 mm Hg Normal 35.0-45.0 [facility] Comment on above: Performed By: #### 4 3670 ####[facility] [address] [place] [address] [id number] [facility] PH ARTERIAL 7.22 Low 7.35-7.45 [facility] Comment on above: Performed By: #### 4 7737 ####[facility] [address] [place] [address] [id number] [facility] PO2 ARTERIAL 444 mm Hg High 80-100 [facility] Comment on above: Performed By: #### 4 5665 ####[facility] [address] [place] [address] [id number] [facility] POC IONIZED CALCIUM 3.7 mg/dL Low 4.5-5.3 [facility] Comment on above: Performed By: #### 4 4367 ####[facility] [address] [place] [address] [id number] [facility] Potassium [Moles/Vol] 4.6 mmol/L Normal 3.5-5.1 [facility] Comment on above: Performed By: #### 4 7280 ####[facility] [address] [place] [address] [id number] [facility] Sodium [Moles/Vol] 135 mmol/L Normal 135-[address] [facility] Comment on above: Performed By: #### 4 2824 ####[facility] [address] [place] [address] [id number] [facility] POC ACTIVATED CLOTTING TIME - [facility] 01-24-2024 POC ACT KAOLIN 274 seconds Normal [facility] Comment on above: Performed By: #### 4 8122 ####[facility] [address] [place] [address] [id number] [facility] POC ARTERIAL BLOOD GAS PANEL -PULM - [facility] 01-24-2024 BASE EXCESS, ARTERIAL -11.8 Low -2.0-2.0 [facility] Comment on above: Order Comment: Criti cherrie result acted upon time of test. Test performed at bedside. Performed By: #### 4 8716 ####[facility] [address] [place] [address] [id number] [facility] CALCIUM IONIZED 4.4 mg/dL Low 4.5-5.3 [facility] Comment on above: Order Comment: Criti cherrie result acted upon time of test. Test performed at bedside. Performed By: #### 4 8716 ####[facility] [address] [place] [address] [id number] [facility] CARBOXYHEMOGLOBIN 1.5 % of total Hb Normal <=1.5 [facility] Comment on above: Order Comment: Criti cherrie result acted upon time of test. Test performed at bedside. Result Comment: Refe almace Ranges:[facility] Non-smokers: <1.5%Smokers: 1.5-5.0%Heavy Smokers: 5.0-9.0% Performed By: #### 4 8716 ####[facility] PO[facility] [address] [place] [address] [id number] [facility] Chloride [Moles/Vol] 115 mmol/L High 98-108 [facility] Comment on above: Order Comment: Criti cherrie result acted upon time of test. Test performed at bedside. Performed By: #### 4 8716 ####[facility] [address] [place] [address] [id number] [facility] FIO2 30 Normal [facility] Comment on above: Order Comment: Criti cherrie result acted upon time of test. Test performed at bedside. Performed By: #### 4 8716 ####[facility] [address] [place] [address] [id number] [facility] Glucose [Mass/Vol] 120 mg/dL High 65-[address] [facility] Comment on above: Order Comment: Criti cherrie result acted upon time of test. Test performed at bedside. Performed By: #### 4 8716 ####[facility] [address] [place] [address] [id number] [facility] HCO3 (Bld) [Moles/Vol] 13.9 mmol/L Low 22.0-26.0 [facility] Comment on above: Order Comment: Criti cherrie result acted upon time of test. Test performed at bedside. Performed By: #### 4 8716 ####[facility] [address] [place] [address] [id number] [facility] Hematocrit (Bld) [Volume fraction] 34.5 % Low 36.0-46.0 [facility] Comment on above: Order Comment: Criti cherrie result acted upon time of test. Test performed at bedside. Performed By: #### 4 8716 ####[facility] [address] [place] [address] [id number] [facility] Hemoglobin (Bld) [Mass/Vol] 11.3 g/dL Low 12.0-16.0 [facility] Comment on above: Order Comment: Criti cherrie result acted upon time of test. Test performed at bedside. Performed By: #### 4 8716 ####[facility] [address] [place] [address] [id number] [facility] LACTIC ACID, WHOLE BLOOD 5.2 mmol/L Off scale high 0.6-2.0 [facility] Comment on above: Order Comment: Criti cherrie result acted upon time of test. Test performed at bedside. Performed By: #### 4 [id number] ####[facility] PO[facility] [address] [place] [address] [id number] [facility] METHEMOGLOBIN < Normal 0.0-2.0 [facility] Comment on above: Order Comment: Criti cherrie result acted upon time of test. Test performed at bedside. Performed By: #### 4 8716 ####[facility] [address] [place] [address] [id number] [facility] O2HB 92.3 % Low 94.0-98.0 [facility] Comment on above: Order Comment: Criti cherrie result acted upon time of test. Test performed at bedside. Performed By: #### 4 8716 ####[facility] [address] [place] [address] [id number] [facility] Oxygen saturation in Blood 94.1 % Normal 92.0-99.0 [facility] Comment on above: Order Comment: Criti cherrie result acted upon time of test. Test performed at bedside. Performed By: #### 4 8716 ####[facility] [address] [place] [address] [id number] [facility] PCO2 ARTERIAL 30.3 mm Hg Low 35.0-45.0 [facility] Comment on above: Order Comment: Criti cherrie result acted upon time of test. Test performed at bedside. Performed By: #### 4 8716 ####[facility] [address] [place] [address] [id number] [facility] PEEP RAD 5 Normal [facility] Comment on above: Order Comment: Criti cherrie result acted upon time of test. Test performed at bedside. Performed By: #### 4 8716 ####[facility] [address] [place] [address] [id number] [facility] PH ARTERIAL 7.27 Low 7.35-7.45 [facility] Comment on above: Order Comment: Criti cherrie result acted upon time of test. Test performed at bedside. Performed By: #### 4 8716 ####[facility] [address] [place] [address] [id number] [facility] PO2 ARTERIAL 76 mm Hg Low 80-100 [facility] Comment on above: Order Comment: Criti cherrie result acted upon time of test. Test performed at bedside. Performed By: #### 4 [id number] ####[facility] [address] [place] [address] [id number] [facility] Potassium [Moles/Vol] 4.6 mmol/L Normal 3.5-5.1 [facility] Comment on above: Order Comment: Criti cherrie result acted upon time of test. Test performed at bedside. Performed By: #### 4 8716 ####[facility] [address] [place] [address] [id number] [facility] RESP RATE RAD 22 [facility] Comment on above: Order Comment: Criti cherrie result acted upon time of test. Test performed at bedside. Performed By: #### 4 8716 ####[facility] [address] [place] [address] [id number] [facility] RESULT NOTIFICATION Critical results giv en to:[id number] [facility] Comment on above: Order Comment: Criti cherrie result acted upon time of test. Test performed at bedside. Performed By: #### 4 8716 ####[facility] [address] [place] [address] [id number] [facility] Sodium [Moles/Vol] 134 mmol/L Low 135-[address] [facility] Comment on above: Order Comment: Criti cherrie result acted upon time of test. Test performed at bedside. Performed By: #### 4 8716 ####[facility] [address] [place] [address] [id number] [facility] POC GLUCOSE - [facility] 024 Glucose [Mass/Vol] 154 mg/dL High 65-[address] [facility] Comment on above: Performed By: #### 4 6932 ####[facility] [address] [place] [address] [id number] [facility] Glucose [Mass/Vol] 122 mg/dL High 65-[address] [place] [address] Comment on above: Performed By: #### 4 1654 ####[facility] [address] [place] [address] [id number] [facility] POTASSIUM LEVEL 01-24-2024 Potassium [Moles/Vol] 4.7 mmol/L Normal 3.5-5.1 [facility] Comment on above: Performed By: #### 4 6351 ####[facility] [address] [place] [address] Glenn Gudino M.D. [id number] PT/INRon 01-24-2024 INR Coag (PPP) [Relative time] 1.4 {INR} High 0.8-1.1 [facility] Comment on above: Order Comment: Jennifer retana the induction phase of oral anticoagulation, the INR may not reflect the anticoagulation status of the patient. Therapeutic ranges for INR's are:Most clinical situations: INR 2.0-3.0Mechanical Prosthetic Valve: INR 2.5-3.5Critical: INR >5.0 Performed By: #### 4 6391 ####[facility] [address] [place] [address] Glenn Gudino M.D. [id number] PT Coag (PPP) [Time] 17.5 s High 11.8-14.3 [facility] Comment on above: Order Comment: Jennifer retana the induction phase of oral anticoagulation, the INR may not reflect the anticoagulation status of the patient. Therapeutic ranges for INR's are:Most clinical situations: INR 2.0-3.0Mechanical Prosthetic Valve: INR 2.5-3.5Critical: INR >5.0 Performed By: #### 4 6391 ####[facility] [address] [place], [place] [id number] Glenn Gudino M.D. [id number] INR Coag (PPP) [Relative time] 1.6 {INR} High 0.8-1.1 [facility] Comment on above: Order Comment: Jennifer retana the induction phase of oral anticoagulation, the INR may not reflect the anticoagulation status of the patient. Therapeutic ranges for INR's are:Most clinical situations: INR 2.0-3.0Mechanical Prosthetic Valve: INR 2.5-3.5Critical: INR >5.0 Result Comment: Resu lts checked. Performed By: #### 4 6391 ####[facility] [address] [place] [address] Glenn Gudino M.D. [id number] PT Coag (PPP) [Time] 19.5 s High 11.8-14.3 [facility] Comment on above: Order Comment: Durin g the induction phase of oral anticoagulation, the INR may not reflect the anticoagulation status of the patient. Therapeutic ranges for INR's are:Most clinical situations: INR 2.0-3.0Mechanical Prosthetic Valve: INR 2.5-3.5Critical: INR >5.0 Result Comment: Resu lts checked. Performed By: #### 4 6391 ####[facility] [address] [place] [address] Glenn Gudino M.D. [id number] INR Coag (PPP) [Relative time] 1.1 {INR} Normal 0.8-1.1 [facility] Comment on above: Order Comment: Duralfonzo g the induction phase of oral anticoagulation, the INR may not reflect the anticoagulation status of the patient. Therapeutic ranges for INR's are:Most clinical situations: INR 2.0-3.0Mechanical Prosthetic Valve: INR 2.5-3.5Critical: INR >5.0 Performed By: #### 4 6391 ####[facility] [address] [place] [address] Glenn Gudino M.D. [id number] PT Coag (PPP) [Time] 13.6 s Normal 11.8-14.3 [facility] Comment on above: Order Comment: Durin g the induction phase of oral anticoagulation, the INR may not reflect the anticoagulation status of the patient. Therapeutic ranges for INR's are:Most clinical situations: INR 2.0-3.0Mechanical Prosthetic Valve: INR 2.5-3.5Critical: INR >5.0 Performed By: #### 4 6391 ####[facility] [address] [place] [address] Glenn Gudino M.D. [id number] REFLEX LACTIC ACID, PLASMAon 01-24-2024 LACTIC ACID, PLASMA 2.0 mmol/L Normal 0.6-2.0 [facility] Comment on above: Performed By: #### L [id number] ####[facility] [address] [place] [address] Glenn Gudino M.D. [id number] TISSUE AEROBIC AND ANAEROBIC CULTUREon 01-24-2024 TISSUE AEROBIC AND ANAEROBIC CULTURE CULTURE No Growth after 5 days GRAM STAIN RESULT Many RBC Few WBC No Organisms Seen Normal [facility] Comment on above: Performed By: #### 4 4274 ####[facility] [address] [place] [address] Glenn Gudino M.D. [id number] TISSUE AFB CULTUREon 024 TISSUE AFB CULTURE AFB CULTURE No Growth of Acid Fast Bacilli after 8 Weeks AFB STAIN (2018) No Acid Fast Bacilli Seen Normal [facility] Comment on above: Performed By: #### 4 4273 ####[facility] [address] [place], [place] [id number] Glenn Gudino M.D. [id number] TISSUE FUNGUS CULTUREon 12-28 TISSUE FUNGUS CULTURE FUNGUS CULTURE No Fungus Isolated At 4 Weeks FUNGAL SMEAR No Fungal or Yeast Elements Normal [facility] Comment on above: Performed By: #### 4 4275 ####[facility] [address] [place] [address] Glenn Gudino M.D. [id number] TRANSFUSION CONSULTon 2023 TRANSFUSION CONSULT Normal [facility] Comment on above: Performed By: #### 4 8080 ####[facility] [address] [place], [place] [id number] Glenn Gudino M.D. [id number] TRIGLYCERIDESon 01-24-2024 Triglyceride [Mass/Vol] 72 mg/dL Normal 30-150 [facility] Comment on above: Result Comment: Lucila [facility] Cholesterol Education [employer] Guidelines: TriglycerideNormal: <150 mg/dLBorderline High: 150-199 mg/dLHigh: 200-499 mg/dLVery High: greater than or equal to 500 mg/dL Performed By: #### 4 6606 ####[facility] [address] [address] Glenn Gudino M.D. [id number] TYPE AND SCREENon 01-24-2024 TYPE AND SCREEN ABORH: O Positive AB SCREEN: Positive EXPIRATION DATE: 01/27/2024 23:59 EST Normal [facility] Comment on above: Performed By: #### 4 6619 ####[facility] [address] [place] [address] Nurys Oneill MD [id number] [facility] XR ABDOMEN /KUB/FLAT PLATE/1 VIEWon 01-24-2024 XR ABDOMEN /KUB/FLAT PLATE/1 VIEW [facility] Comment on above: Order Comment: Injur y/Trauma or Illness?:Illness/OtherHow long have you had these symptoms (acute/chronic)?:UnknownReason for exam?:NG/OG tube placementHistory of cancer?:uSurgeries, chemotherapy, or radiation?:uType of Exam?:UnknownAdditional signs and symptoms?:. XR CHEST PA/APon 01-24-2024 XR CHEST PA/AP [facility] Comment on above: Order Comment: Injur y/Trauma or Illness?:Illness/OtherHow long have you had these symptoms (acute/chronic)?:UnknownReason for exam?:ettHistory of cancer?:uSurgeries, chemotherapy, or radiation?:uType of Exam?:InitialAdditional signs and symptoms?:no XR CHEST PA/AP [facility] Comment on above: Order Comment: Injur y/Trauma or Illness?:Illness/OtherHow long have you had these symptoms (acute/chronic)?:UnknownReason for exam?:intubatedHistory of cancer?:uSurgeries, chemotherapy, or radiation?:uType of Exam?:UnknownAdditional signs and symptoms?:. ANTIBODY IDENTIFICATION-Con 01-23-2024 ANTIBODY IDENTIFICATION-C [facility] Comment on above: Performed By: #### 4 6427_Anti-C ####[facility] [address] [place] [address] Nurys Oneill MD [id number] [facility] ANTIBODY IDENTIFICATION-FYAo n 01-23-2024 ANTIBODY IDENTIFICATION-FYA [facility] Comment on above: Performed By: #### 4 6427_Anti-Fya ####[facility] [address] [place] [address] Nurys Oneill MD [id number] [facility] ANTIBODY IDENTIFICATION-WAAo n 01-23-2024 ANTIBODY IDENTIFICATION-WAA [facility] Comment on above: Performed By: #### 4 6427_WAA ####[facility] [address] Nurys Oneill MD [id number] [facility] ANTIBODY IDENTIFICATION-WAA [facility] Comment on above: Performed By: #### 4 6427_WAA ####[facility] [address] Nurys Oneill MD [id number] [facility] C PATIENT ANTIGEN TYPINGon 0 01-23-2024 C PATIENT ANTIGEN TYPING Negative [facility] Comment on above: Performed By: #### P -C ####[facility] [address] [place] [address] Nurys Oneill MD [id number] [facility] CBCon 01-23-2024 AUTO NRBC 0.0 % [facility] Comment on above: Performed By: #### 4 5218 ####[facility] [address] [place] [address] Glenn Gudino M.D. [id number] AUTO NRBC ABS COUNT 0.00 K/mcL Normal 0.00-0.00 [facility] Comment on above: Performed By: #### 4 5218 ####[facility] [address] [place] [address] Glenn Gudino M.D. [id number] Erythrocyte distribution width (RBC) [Ratio] 18.8 % High 11.6-14.8 [facility] Comment on above: Performed By: #### 4 5218 ####[facility] [address] [place], [place] [id number] Glenn Gudino M.D. [id number] Hematocrit (Bld) [Volume fraction] 27.3 % Low 36.0-46.0 [facility] Comment on above: Performed By: #### 4 5218 ####[facility] [address] [place] [address] Glenn Gudino M.D. [id number] Hemoglobin (Bld) [Mass/Vol] 8.7 g/dL Low 12.0-16.0 [facility] Comment on above: Performed By: #### 4 5218 ####[facility] [address] [place] [address] Glenn Gudino M.D. [id number] MCH (RBC) [Entitic mass] 27.7 pg Normal 26.0-34.0 [facility] Comment on above: Performed By: #### 4 5218 ####[facility] [address] [place] [address] Glenn Gudino M.D. [id number] MCV (RBC) [Entitic vol] 86.9 fL Normal 80.0-100.0 [facility] Comment on above: Performed By: #### 4 5218 ####[facility] [address] [place], [place] [id number] Glenn Gudino M.D. [id number] MEAN CORPUSCULAR HEMOGLOBIN CONC 31.9 g/dL Normal 31.0-37.0 [facility] Comment on above: Performed By: #### 4 5218 ####[facility] [address] [place], [place] [id number] Glenn Gudino M.D. [id number] Platelet mean volume (Bld) [Entitic vol] 9.0 fL Low 9.4-12.4 [facility] Comment on above: Performed By: #### 4 5218 ####[facility] [address] [place], [place] [id number] Glenn Gudino M.D. [id number] Platelets (Bld) [#/Vol] 209 10*3/uL Normal 150-400 [facility] Comment on above: Performed By: #### 4 5218 ####[facility] [address] [place] [address] Glenn Gudino M.D. [id number] RBC (Bld) [#/Vol] 3.14 10*6/uL Low 4.00-5.20 [facility] Comment on above: Performed By: #### 4 5218 ####[facility] [address] [place] [address] Glenn Gudino M.D. [id number] WBC (Bld) [#/Vol] 7.25 10*3/uL Normal 4.50-11.00 [facility] Comment on above: Performed By: #### 4 5218 ####[facility] [address] [place] [address] Glenn Gudino M.D. [id number] COMPLEMENT DIRECT ANTIGLOBUL IN TESTon 01-23-2024 COMPLEMENT DIRECT ANTIGLOBULIN TEST Negative Normal [facility] Comment on above: Performed By: #### 4 6807 ####[facility] [address] [place] [address] Nurys Oneill MD [id number] [facility] COMPLEMENT DIRECT ANTIGLOBULIN TEST Negative Normal [facility] Comment on above: Performed By: #### 4 6865 ####[facility] [address] [place] [address] Nurys Oneill MD [id number] [facility] COMPREHENSIVE METABOLIC PANE Magdaleno 01-23-2024 Albumin [Mass/Vol] 2.7 g/dL Low 3.2-5.[address] [facility] Comment on above: Order Comment: [facility] has implemented the eGFR calculation approach that does not have a coefficient for race that conforms to the NKF-ASN Task Force Recommendations. Performed By: #### 4 6126 ####[facility] [address] [place], [place] [id number] Glenn Gudino M.D. [id number] ALP [Catalytic activity/Vol] 74 U/L Normal 40-150 [facility] Comment on above: Order Comment: [facility] has implemented the eGFR calculation approach that does not have a coefficient for race that conforms to the NKF-ASN Task Force Recommendations. Performed By: #### 4 [id number] ####[facility] [address] [place], [place] [id number] Glenn Gudino M.D. [id number] ALT [Catalytic activity/Vol] 10 U/L Normal 0-35 U/L [facility] Comment on above: Order Comment: [facility] has implemented the eGFR calculation approach that does not have a coefficient for race that conforms to the NKF-ASN Task Force Recommendations. Performed By: #### 4 [id number] ####[facility] [address] [place] [address] 7[address] Glenn Gudino M.D. [id number] Anion gap [Moles/Vol] 15 mmol/L Normal 10-[address] [facility] Comment on above: Order Comment: [facility] has implemented the eGFR calculation approach that does not have a coefficient for race that conforms to the NKF-ASN Task Force Recommendations. Performed By: #### 4 6126 ####[facility] [address] [place], [place] [id number] Glenn Gudino M.D. [id number] AST [Catalytic activity/Vol] 23 U/L Normal 0-35 U/L [facility] Comment on above: Order Comment: [facility] has implemented the eGFR calculation approach that does not have a coefficient for race that conforms to the NKF-ASN Task Force Recommendations. Performed By: #### 4 [id number] ####[facility] [address] [place] [address] Glenn Gudino M.D. [id number] Bilirubin [Mass/Vol] 0.2 mg/dL Normal 0.0-1.3 [facility] Comment on above: Order Comment: [facility] has implemented the eGFR calculation approach that does not have a coefficient for race that conforms to the NKF-ASN Task Force Recommendations. Performed By: #### 4 6126 ####[facility] [address] [place] [address] 834[address] Glenn Gudino M.D. [id number] Calcium [Mass/Vol] 8.2 mg/dL Low 8.4-10.[address] [facility] Comment on above: Order Comment: [facility] has implemented the eGFR calculation approach that does not have a coefficient for race that conforms to the NKF-ASN Task Force Recommendations. Performed By: #### 4 6126 ####[facility] [address] [place] [address] 09468 Glenn Gudino M.D. [id number] Chloride [Moles/Vol] 101 mmol/L Normal 98-108 [facility] Comment on above: Order Comment: [facility] has implemented the eGFR calculation approach that does not have a coefficient for race that conforms to the NKF-ASN Task Force Recommendations. Performed By: #### 4 6126 ####[facility] [address] [place] [address] 7[address] Glenn Gudino M.D. [id number] Creatinine [Mass/Vol] 1.99 mg/dL High 0.60-1.10 [facility] Comment on above: Order Comment: [facility] has implemented the eGFR calculation approach that does not have a coefficient for race that conforms to the NKF-ASN Task Force Recommendations. Performed By: #### 4 6126 ####[facility] [address] [place] [address] 6[address]28 Glenn Gudino M.D. [id number] EGFR 28 mL/min/1.73 m2 Low >=60 [facility] Comment on above: Order Comment: [facility] has implemented the eGFR calculation approach that does not have a coefficient for race that conforms to the NKF-ASN Task Force Recommendations. Result Comment: Joi mated GFR was calculated using the 2020 CKD-EPI creatinine equation. Performed By: #### 4 6126 ####[facility] [address] [place] [address] 93719 Glenn Gudino M.D. [id number] Glucose [Mass/Vol] 85 mg/dL Normal 65-[address] [facility] Comment on above: Order Comment: [facility] has implemented the eGFR calculation approach that does not have a coefficient for race that conforms to the NKF-ASN Task Force Recommendations. Performed By: #### 4 6126 ####[facility] [address] [place] [address] 55633 Glenn Gudino M.D. [id number] HCO3 (Bld) [Moles/Vol] 19 mmol/L Low 21-32 [facility] Comment on above: Order Comment: [facility] has implemented the eGFR calculation approach that does not have a coefficient for race that conforms to the NKF-ASN Task Force Recommendations. Performed By: #### 4 6126 ####[facility] [address] [place] [address] Glenn Gudino M.D. [id number] Potassium [Moles/Vol] 4.6 mmol/L Normal 3.5-5.1 [facility] Comment on above: Order Comment: [facility] has implemented the eGFR calculation approach that does not have a coefficient for race that conforms to the NKF-ASN Task Force Recommendations. Performed By: #### 4 6126 ####[facility] [address] [place] [address] 87[address] Glenn Gudino M.D. [id number] Protein [Mass/Vol] 6.5 g/dL Normal 6.0-8.[address] [facility] Comment on above: Order Comment: [facility] has implemented the eGFR calculation approach that does not have a coefficient for race that conforms to the NKF-ASN Task Force Recommendations. Performed By: #### 4 6126 ####[facility] [address] [place] [address] 20020 Glenn Gudino M.D. [id number] Sodium [Moles/Vol] 130 mmol/L Low 135-[address] [facility] Comment on above: Order Comment: [facility] has implemented the eGFR calculation approach that does not have a coefficient for race that conforms to the NKF-ASN Task Force Recommendations. Performed By: #### 4 6126 ####[facility] [address] [place] [address] 24944 Glenn Gudino M.D. [id number] Urea nitrogen [Mass/Vol] 36 mg/dL High 8-25 [facility] Comment on above: Order Comment: [facility] has implemented the eGFR calculation approach that does not have a coefficient for race that conforms to the NKF-ASN Task Force Recommendations. Performed By: #### 4 6126 ####[facility] [address] [place] [address] 21240 Glenn Gudino M.D. [id number] Urea nitrogen/Creatinine [Mass ratio] 18.1 mg/mg Normal 10.0-20.0 [facility] Comment on above: Order Comment: [facility] has implemented the eGFR calculation approach that does not have a coefficient for race that conforms to the NKF-ASN Task Force Recommendations. Performed By: #### 4 6126 ####[facility] [address] [place] [address] 47[address] Glenn Gudino M.D. [id number] ELUTION-WAAon 01-23-2024 ELUTION-WAA [facility] Comment on above: Performed By: #### 4 [id number] ####[facility] [address] [place] [address] Nurys Oneill MD [id number] RMHTS GIGGon 01-23-2024 GIGG Positive [facility] Comment on above: Performed By: #### G IGG ####[facility] [address] [place] [address] Nurys Oneill MD [id number] RMHTS GIGG Positive [facility] Comment on above: Performed By: #### G IGG ####[facility] [address] [place] [address] Nurys Oneill MD [id number] RMS LITTLE C PATIENT ANTIGEN TYP ING (STX)on 01-23-2024 LITTLE C PATIENT ANTIGEN TYPING (STX) Positive [facility] Comment on above: Performed By: #### P -Little c ####[facility] [address] [place] [address] Nurys Oneill MD [id number] [facility] PT/INRon 01-23-2024 INR Coag (PPP) [Relative time] 1.0 {INR} Normal 0.8-1.1 [facility] Comment on above: Order Comment: Jennifer retana the induction phase of oral anticoagulation, the INR may not reflect the anticoagulation status of the patient. Therapeutic ranges for INR's are:Most clinical situations: INR 2.0-3.0Mechanical Prosthetic Valve: INR 2.5-3.5Critical: INR >5.0 Performed By: #### 4 6391 ####[facility] [address] [place] [address] Glenn Gudino M.D. [id number] PT Coag (PPP) [Time] 13.3 s Normal 11.8-14.3 [facility] Comment on above: Order Comment: Jennifer retana the induction phase of oral anticoagulation, the INR may not reflect the anticoagulation status of the patient. Therapeutic ranges for INR's are:Most clinical situations: INR 2.0-3.0Mechanical Prosthetic Valve: INR 2.5-3.5Critical: INR >5.0 Performed By: #### 4 6391 ####[facility] [address] [place] [address] Glenn Gudino M.D. [id number] TYPE AND SCREENon 01-23-2024 TYPE AND SCREEN ABORH: O Positive AB SCREEN: Positive EXPIRATION DATE: 01/26/2024 23:59 EST Normal [facility] Comment on above: Performed By: #### 4 6619 ####[facility] [address] [place] [address] Nurys Oneill MD [id number] RMHTS TYPE AND SCREEN ABORH: O Positive AB SCREEN: Positive EXPIRATION DATE: 01/26/2024 23:59 EST [facility] Comment on above: Performed By: #### 4 6619 ####[facility] [address] [place] [address] Nurys Oneill MD [id number] RMHTS APTT HEPARIN COVERAGEon 12-28 aPTT Coag (Bld) [Time] 113 s High 23-34 [facility] Comment on above: Order Comment: Thera peutic range for APTT's is 68 - 104 seconds Performed By: #### 4 [id number] ####[facility] [address] [place] [address] Glenn Gudino M.D. [id number] aPTT Coag (Bld) [Time] 100 s High 23-34 [facility] Comment on above: Order Comment: Thera peutic range for APTT's is 68 - 104 secondsResults checked. Performed By: #### 4 [id number] ####[facility] [address] [place] [address] Glenn Gudino M.D. [id number] CBCon 01-22-2024 AUTO NRBC 0.0 % [facility] Comment on above: Order Comment: While on heparin Performed By: #### 4 [id number] ####[facility] [address] [place], [place] [id number] Glenn Gudino M.D. [id number] AUTO NRBC ABS COUNT 0.00 K/mcL Normal 0.00-0.00 [facility] Comment on above: Order Comment: While on heparin Performed By: #### 4 [id number] ####[facility] [address] [place] [address] Glenn Gudino M.D. [id number] Erythrocyte distribution width (RBC) [Ratio] 18.7 % High 11.6-14.8 [facility] Comment on above: Order Comment: While on heparin Performed By: #### 4 [id number] ####[facility] [address] [place] [address] Glenn Gudino M.D. [id number] Hematocrit (Bld) [Volume fraction] 29.7 % Low 36.0-46.0 [facility] Comment on above: Order Comment: While on heparin Performed By: #### 4 [id number] ####[facility] [address] [place], [place] [id number] Glenn Gudino M.D. [id number] Hemoglobin (Bld) [Mass/Vol] 9.3 g/dL Low 12.0-16.0 [facility] Comment on above: Order Comment: While on heparin Performed By: #### 4 [id number] ####[facility] [address] [place], [place] [id number] Glenn Gudino M.D. [id number] MCH (RBC) [Entitic mass] 27.4 pg Normal 26.0-34.0 [facility] Comment on above: Order Comment: While on heparin Performed By: #### 4 [id number] ####[facility] [address] [place], [place] [id number] Glenn Gudino M.D. [id number] MCV (RBC) [Entitic vol] 87.6 fL Normal 80.0-100.0 [facility] Comment on above: Order Comment: While on heparin Performed By: #### 4 [id number] ####[facility] [address] [place], [place] [id number] Glenn Gudino M.D. [id number] MEAN CORPUSCULAR HEMOGLOBIN CONC 31.3 g/dL Normal 31.0-37.0 [facility] Comment on above: Order Comment: While on heparin Performed By: #### 4 [id number] ####[facility] [address] [place] [address] Glenn Gudino M.D. [id number] Platelet mean volume (Bld) [Entitic vol] 9.0 fL Low 9.4-12.4 [facility] Comment on above: Order Comment: While on heparin Performed By: #### 4 [id number] ####[facility] [address] [place] [address] Glenn Gudino M.D. [id number] Platelets (Bld) [#/Vol] 192 10*3/uL Normal 150-400 [facility] Comment on above: Order Comment: While on heparin Performed By: #### 4 [id number] ####[facility] [address] [place], [place] [id number] Glenn Gudino M.D. [id number] RBC (Bld) [#/Vol] 3.39 10*6/uL Low 4.00-5.20 [facility] Comment on above: Order Comment: While on heparin Performed By: #### 4 [id number] ####[facility] [address] [place], [place] [id number] Glenn Gudino M.D. [id number] WBC (Bld) [#/Vol] 5.85 10*3/uL Normal 4.50-11.00 [facility] Comment on above: Order Comment: While on heparin Performed By: #### 4 [id number] ####[facility] [address] [place] [address] 55394 Glenn Gudino M.D. [id number] COMPREHENSIVE METABOLIC PANE Magdaleno 01-22-2024 Albumin [Mass/Vol] 2.8 g/dL Low 3.2-5.[address] [facility] Comment on above: Order Comment: [facility] has implemented the eGFR calculation approach that does not have a coefficient for race that conforms to the NKF-ASN Task Force Recommendations. Performed By: #### 4 6126 ####[facility] [address] [place] [address] 805[address] Glenn Gudino M.D. [id number] ALP [Catalytic activity/Vol] 75 U/L Normal 40-150 [facility] Comment on above: Order Comment: [facility] has implemented the eGFR calculation approach that does not have a coefficient for race that conforms to the NKF-ASN Task Force Recommendations. Performed By: #### 4 6126 ####[facility] [address] [place] [address] 976[address] Glenn Gudino M.D. [id number] ALT [Catalytic activity/Vol] 10 U/L Normal 0-35 U/L [facility] Comment on above: Order Comment: [facility] has implemented the eGFR calculation approach that does not have a coefficient for race that conforms to the NKF-ASN Task Force Recommendations. Performed By: #### 4 6126 ####[facility] [address] [place] [address] 12274 Glenn Gudino M.D. [id number] Anion gap [Moles/Vol] 16 mmol/L Normal 10-20 [facility] Comment on above: Order Comment: [facility] has implemented the eGFR calculation approach that does not have a coefficient for race that conforms to the NKF-ASN Task Force Recommendations. Performed By: #### 4 6126 ####[facility] [address] [place], [place] [id number] Glenn Gudino M.D. [id number] AST [Catalytic activity/Vol] 19 U/L Normal 0-35 U/L [facility] Comment on above: Order Comment: [facility] has implemented the eGFR calculation approach that does not have a coefficient for race that conforms to the NKF-ASN Task Force Recommendations. Performed By: #### 4 6126 ####[facility] [address] [place] [address] 865[address] Glenn Gudino M.D. [id number] Bilirubin [Mass/Vol] 0.2 mg/dL Normal 0.0-1.3 [facility] Comment on above: Order Comment: [facility] has implemented the eGFR calculation approach that does not have a coefficient for race that conforms to the NKF-ASN Task Force Recommendations. Performed By: #### 4 6126 ####[facility] [address] [place], [place] [address] Glenn Gudino M.D. [id number] Calcium [Mass/Vol] 8.1 mg/dL Low 8.4-10.[address] [facility] Comment on above: Order Comment: [facility] has implemented the eGFR calculation approach that does not have a coefficient for race that conforms to the NKF-ASN Task Force Recommendations. Performed By: #### 4 6126 ####[facility] [address] [place], [place] [address] Glenn Gudino M.D. [id number] Chloride [Moles/Vol] 103 mmol/L Normal 98-108 [facility] Comment on above: Order Comment: [facility] has implemented the eGFR calculation approach that does not have a coefficient for race that conforms to the NKF-ASN Task Force Recommendations. Performed By: #### 4 6126 ####[facility] [address] [place] [address] 05695 Glenn Gudino M.D. [id number] Creatinine [Mass/Vol] 2.18 mg/dL High 0.60-1.10 [facility] Comment on above: Order Comment: [facility] has implemented the eGFR calculation approach that does not have a coefficient for race that conforms to the NKF-ASN Task Force Recommendations. Performed By: #### 4 6126 ####[facility] [address] [place] [address] 669[address] Glenn Gudino M.D. [id number] EGFR 25 mL/min/1.73 m2 Low >=60 [facility] Comment on above: Order Comment: [facility] has implemented the eGFR calculation approach that does not have a coefficient for race that conforms to the NKF-ASN Task Force Recommendations. Result Comment: Joi mated GFR was calculated using the 2020 CKD-EPI creatinine equation. Performed By: #### 4 6126 ####[facility] [address] [place] [address] 77[address] Glenn Gudino M.D. [id number] Glucose [Mass/Vol] 82 mg/dL Normal 65-[address] [facility] Comment on above: Order Comment: [facility] has implemented the eGFR calculation approach that does not have a coefficient for race that conforms to the NKF-ASN Task Force Recommendations. Performed By: #### 4 6126 ####[facility] [address] [place] [address] 434[address] Glenn Gudino M.D. [id number] HCO3 (Bld) [Moles/Vol] 21 mmol/L Normal 21-32 [facility] Comment on above: Order Comment: [facility] has implemented the eGFR calculation approach that does not have a coefficient for race that conforms to the NKF-ASN Task Force Recommendations. Performed By: #### 4 6113 ####[facility] [address] [place] [address] 19859 Glenn Gudino M.D. [id number] Potassium [Moles/Vol] 4.6 mmol/L Normal 3.5-5.1 [facility] Comment on above: Order Comment: [facility] has implemented the eGFR calculation approach that does not have a coefficient for race that conforms to the NKF-ASN Task Force Recommendations. Performed By: #### 4 6126 ####[facility] [address] [place] [address] 53985 Glenn Gudino M.D. [id number] Protein [Mass/Vol] 6.7 g/dL Normal 6.0-8.[address] [facility] Comment on above: Order Comment: [facility] has implemented the eGFR calculation approach that does not have a coefficient for race that conforms to the NKF-ASN Task Force Recommendations. Performed By: #### 4 6126 ####[facility] [address] [place] [address] 06883 Glenn Gudino M.D. [id number] Sodium [Moles/Vol] 135 mmol/L Normal 135-[address] [facility] Comment on above: Order Comment: [facility] has implemented the eGFR calculation approach that does not have a coefficient for race that conforms to the NKF-ASN Task Force Recommendations. Performed By: #### 4 6126 ####[facility] [address] [place] [address] 16704 Glenn Gudino M.D. [id number] Urea nitrogen [Mass/Vol] 38 mg/dL High 8-25 [facility] Comment on above: Order Comment: [facility] has implemented the eGFR calculation approach that does not have a coefficient for race that conforms to the NKF-ASN Task Force Recommendations. Performed By: #### 4 6126 ####[facility] [address] [place] [address] 40458 Glenn Gudino M.D. [id number] Urea nitrogen/Creatinine [Mass ratio] 17.4 mg/mg Normal 10.0-20.0 [facility] Comment on above: Order Comment: [facility] has implemented the eGFR calculation approach that does not have a coefficient for race that conforms to the NKF-ASN Task Force Recommendations. Performed By: #### 4 6126 ####[facility] [address] [place] [address] 69556 Glenn Gudino M.D. [id number] CONSULTon 01-22-2024 CONSULT See consult note 12/28 11/19. AUTHENTICATED BY MARY SUBRAMANIAN, ON 01/23/2024 07:09:20 Normal [facility] CONSULT Normal [facility] PT/INRon 01-22-2024 INR Coag (PPP) [Relative time] 1.0 {INR} Normal 0.8-1.1 [facility] Comment on above: Order Comment: Malcomin g the induction phase of oral anticoagulation, the INR may not reflect the anticoagulation status of the patient. Therapeutic ranges for INR's are:Most clinical situations: INR 2.0-3.0Mechanical Prosthetic Valve: INR 2.5-3.5Critical: INR >5.0 Performed By: #### 4 6391 ####[facility] [address] [place], [place] [address] Glenn Gudino M.D. [id number] PT Coag (PPP) [Time] 13.1 s Normal 11.8-14.3 [facility] Comment on above: Order Comment: Jennifer retana the induction phase of oral anticoagulation, the INR may not reflect the anticoagulation status of the patient. Therapeutic ranges for INR's are:Most clinical situations: INR 2.0-3.0Mechanical Prosthetic Valve: INR 2.5-3.5Critical: INR >5.0 Performed By: #### 4 6391 ####[facility] [address] [place], [place] [address] Glenn Gudino M.D. [id number] APTT HEPARIN COVERAGEon 12-28 aPTT Coag (Bld) [Time] 66 s High 23-34 [facility] Comment on above: Order Comment: Thera peutic range for APTT's is 68 - 104 seconds Result Comment: Resu lts checked. Performed By: #### 4 [id number] ####[facility] [address] [place], [place] [id number] Glenn Gudino M.D. [id number] aPTT Coag (Bld) [Time] 84 s High 23-34 [facility] Comment on above: Order Comment: Thera peutic range for APTT's is 68 - 104 secondsResults checked. Performed By: #### 4 [id number] ####[facility] [address] [place], [place] [id number] Glenn Gudino M.D. [id number] aPTT Coag (Bld) [Time] 63 s High 23-34 [facility] Comment on above: Order Comment: Thera peutic range for APTT's is 68 - 104 seconds Performed By: #### 4 [id number] ####[facility] [address] [place] [address] Glenn Gudino M.D. [id number] RENAL FUNCTION PANELon 01-20 Albumin [Mass/Vol] 2.7 g/dL Low 3.2-5.[address] [facility] Comment on above: Order Comment: [facility] has implemented the eGFR calculation approach that does not have a coefficient for race that conforms to the NKF-ASN Task Force Recommendations. Performed By: #### 4 6449 ####[facility] [address] [place] [address] 17819 Glenn Gudino M.D. [id number] Anion gap [Moles/Vol] 15 mmol/L Normal 10-20 [facility] Comment on above: Order Comment: [facility] has implemented the eGFR calculation approach that does not have a coefficient for race that conforms to the NKF-ASN Task Force Recommendations. Performed By: #### 4 6449 ####[facility] [address] [place], [place] [id number] Glenn Gudino M.D. [id number] Calcium [Mass/Vol] 8.1 mg/dL Low 8.4-10.[address] [facility] Comment on above: Order Comment: [facility] has implemented the eGFR calculation approach that does not have a coefficient for race that conforms to the NKF-ASN Task Force Recommendations. Performed By: #### 4 6449 ####[facility] [address] [place] [address] 23478 Glenn Gudino M.D. [id number] Chloride [Moles/Vol] 102 mmol/L Normal 98-108 [facility] Comment on above: Order Comment: [facility] has implemented the eGFR calculation approach that does not have a coefficient for race that conforms to the NKF-ASN Task Force Recommendations. Performed By: #### 4 6449 ####[facility] [address] [place], [place] [id number] Glenn Gudino M.D. [id number] Creatinine [Mass/Vol] 1.96 mg/dL High 0.60-1.10 [facility] Comment on above: Order Comment: [facility] has implemented the eGFR calculation approach that does not have a coefficient for race that conforms to the NKF-ASN Task Force Recommendations. Performed By: #### 4 6449 ####[facility] [address] [place] [address] 76283 Glenn Gudino M.D. [id number] EGFR 29 mL/min/1.73 m2 Low >=60 [facility] Comment on above: Order Comment: [facility] has implemented the eGFR calculation approach that does not have a coefficient for race that conforms to the NKF-ASN Task Force Recommendations. Result Comment: Joi mated GFR was calculated using the 2020 CKD-EPI creatinine equation. Performed By: #### 4 6449 ####[facility] [address] [place] [address] 26245 Glenn Gudino M.D. [id number] Glucose [Mass/Vol] 85 mg/dL Normal 65-[address] [facility] Comment on above: Order Comment: [facility] has implemented the eGFR calculation approach that does not have a coefficient for race that conforms to the NKF-ASN Task Force Recommendations. Performed By: #### 4 6449 ####[facility] [address] [place] [address] 17307 Glenn Gudino M.D. [id number] HCO3 (Bld) [Moles/Vol] 21 mmol/L Normal 21-32 [facility] Comment on above: Order Comment: [facility] has implemented the eGFR calculation approach that does not have a coefficient for race that conforms to the NKF-ASN Task Force Recommendations. Performed By: #### 4 6449 ####[facility] [address] [place] [address] 03005 Glenn Gudino M.D. [id number] Phosphate [Mass/Vol] 3.9 mg/dL Normal 2.8-4.1 [facility] Comment on above: Order Comment: [facility] has implemented the eGFR calculation approach that does not have a coefficient for race that conforms to the NKF-ASN Task Force Recommendations. Performed By: #### 4 6449 ####[facility] [address] [place] [address] 92848 Glenn Gudino M.D. [id number] Potassium [Moles/Vol] 4.2 mmol/L Normal 3.5-5.1 [facility] Comment on above: Order Comment: [facility] has implemented the eGFR calculation approach that does not have a coefficient for race that conforms to the NKF-ASN Task Force Recommendations. Performed By: #### 4 6449 ####[facility] [address] [place] [address] 74888 Glenn Gudino M.D. [id number] Sodium [Moles/Vol] 134 mmol/L Low 135-[address] [facility] Comment on above: Order Comment: [facility] has implemented the eGFR calculation approach that does not have a coefficient for race that conforms to the NKF-ASN Task Force Recommendations. Performed By: #### 4 6449 ####[facility] [address] [place] [address] 74788 Glenn Gudino M.D. [id number] Urea nitrogen [Mass/Vol] 34 mg/dL High 8-25 [facility] Comment on above: Order Comment: [facility] has implemented the eGFR calculation approach that does not have a coefficient for race that conforms to the NKF-ASN Task Force Recommendations. Performed By: #### 4 6449 ####[facility] [address] [place], [place] [id number] Glenn Gudino M.D. [id number] Urea nitrogen/Creatinine [Mass ratio] 17.3 mg/mg Normal 10.0-20.0 [facility] Comment on above: Order Comment: [facility] has implemented the eGFR calculation approach that does not have a coefficient for race that conforms to the NKF-ASN Task Force Recommendations. Performed By: #### 4 6449 ####[facility] [address] [place] [address] 09928 Glenn Gudino M.D. [id number] APTT HEPARIN COVERAGEon 12-28 aPTT Coag (Bld) [Time] 53 s High 23-34 Ri [facility] Comment on above: Order Comment: Thera peutic range for APTT's is 68 - 104 seconds Performed By: #### 4 6848 ####[facility] [address] [place] [address] 27017 Glenn Gudino M.D. [id number] CBCon 01-20-2024 AUTO NRBC 0.0 % Normal [facility] Comment on above: Performed By: #### 4 5218 ####[facility] [address] [place] [address] 71279 Glenn Gudino M.D. [id number] AUTO NRBC ABS COUNT 0.00 K/mcL Normal 0.00-0.00 [facility] Comment on above: Performed By: #### 4 5218 ####[facility] [address] [place], [place] [id number] Glenn Gudino M.D. [id number] Erythrocyte distribution width (RBC) [Ratio] 18.9 % High 11.6-14.8 [facility] Comment on above: Performed By: #### 4 5218 ####[facility] [address] [place] [address] Glenn Gudino M.D. [id number] Hematocrit (Bld) [Volume fraction] 26.1 % Low 36.0-46.0 [facility] Comment on above: Performed By: #### 4 5218 ####[facility] [address] [place] [address] Glenn Gudino M.D. [id number] Hemoglobin (Bld) [Mass/Vol] 8.1 g/dL Low 12.0-16.0 [facility] Comment on above: Performed By: #### 4 5218 ####[facility] [address] [place], [place] [id number] Glenn Gudino M.D. [id number] MCH (RBC) [Entitic mass] 27.3 pg Normal 26.0-34.0 [facility] Comment on above: Performed By: #### 4 5218 ####[facility] [address] [place], [place] [id number] Glenn Gudino M.D. [id number] MCV (RBC) [Entitic vol] 87.9 fL Normal 80.0-100.0 [facility] Comment on above: Performed By: #### 4 3018 ####[facility] [address] [place], [place] [id number] Glenn Gudino M.D. [id number] MEAN CORPUSCULAR HEMOGLOBIN CONC 31.0 g/dL Normal 31.0-37.0 [facility] Comment on above: Performed By: #### 4 5018 ####[facility] [address] [place] [address] 87569 Glenn Gudino M.D. [id number] Platelet mean volume (Bld) [Entitic vol] 10.1 fL Normal 9.4-12.4 [facility] Comment on above: Performed By: #### 4 5218 ####[facility] [address] [place] [address] 79724 Glenn Gudino M.D. [id number] Platelets (Bld) [#/Vol] 160 10*3/uL Normal 150-400 [facility] Comment on above: Performed By: #### 4 5218 ####[facility] [address] [place] [address] 06875 Glenn Gudino M.D. [id number] RBC (Bld) [#/Vol] 2.97 10*6/uL Low 4.00-5.20 [facility] Comment on above: Performed By: #### 4 5218 ####[facility] [address] [place] [address] 76523 Glenn Gudino M.D. [id number] WBC (Bld) [#/Vol] 4.60 10*3/uL Normal 4.50-11.00 [facility] Comment on above: Performed By: #### 4 5218 ####[facility] [address] [place] [address] 57720 Glenn Gudino M.D. [id number] CONSULTon 01-20-2024 CONSULT Normal [facility] HEPATIC FUNCTION PANELon Albumin [Mass/Vol] 2.7 g/dL Low 3.2-5.[address] [facility] Comment on above: Performed By: #### 4 5866 ####[facility] [address] [place] [address] 39024 Glenn Gudino M.D. [id number] Order Comment: [facility] has implemented the eGFR calculation approach that does not have a coefficient for race that conforms to the NKF-ASN Task Force Recommendations. Performed By: #### 4 6449 ####[facility] [address] [place] [address] Glenn Gudino M.D. [id number] ALP [Catalytic activity/Vol] 79 U/L Normal 40-150 [facility] Comment on above: Performed By: #### 4 5866 ####[facility] [address] [place] [address] Glenn Gudino M.D. [id number] ALT [Catalytic activity/Vol] 13 U/L Normal 0-35 U/L [facility] Comment on above: Performed By: #### 4 5866 ####[facility] [address] [place] [address] Glenn Gudino M.D. [id number] AST [Catalytic activity/Vol] 26 U/L Normal 0-35 U/L [facility] Comment on above: Performed By: #### 4 5866 ####[facility] [address] [place] [address] Glenn Gudino M.D. [id number] Bilirubin [Mass/Vol] 0.2 mg/dL Normal 0.0-1.3 [facility] Comment on above: Performed By: #### 4 5866 ####[facility] [address] [place] [address] Glenn Gudino M.D. [id number] BILIRUBIN, DIRECT < Normal 0.0-0.4 [facility] Comment on above: Performed By: #### 4 5857 ####[facility] [address] [place], [place] [id number] Glenn Gudino M.D. [id number] Protein [Mass/Vol] 6.1 g/dL Normal 6.0-8.[address] [facility] Comment on above: Performed By: #### 4 5883 ####[facility] [address] [place] [address] 88727 Glenn Gudino M.D. [id number] PT/INRon 01-20-2024 INR Coag (PPP) [Relative time] 1.0 {INR} Normal 0.8-1.1 [facility] Comment on above: Order Comment: Jennifer g the induction phase of oral anticoagulation, the INR may not reflect the anticoagulation status of the patient. Therapeutic ranges for INR's are:Most clinical situations: INR 2.0-3.0Mechanical Prosthetic Valve: INR 2.5-3.5Critical: INR >5.0 Performed By: #### 4 6391 ####[facility] [address] [place], [place] [address] Glenn Gudino M.D. [id number] PT Coag (PPP) [Time] 13.2 s Normal 11.8-14.3 [facility] Comment on above: Order Comment: Jennifer g the induction phase of oral anticoagulation, the INR may not reflect the anticoagulation status of the patient. Therapeutic ranges for INR's are:Most clinical situations: INR 2.0-3.0Mechanical Prosthetic Valve: INR 2.5-3.5Critical: INR >5.0 Performed By: #### 4 6391 ####[facility] [address] [place] [address] 70717 Glenn Gudino M.D. [id number] RENAL FUNCTION PANELon 01-19 Anion gap [Moles/Vol] 15 mmol/L Normal 10-20 [facility] Comment on above: Order Comment: [facility] has implemented the eGFR calculation approach that does not have a coefficient for race that conforms to the NKF-ASN Task Force Recommendations. Performed By: #### 4 6449 ####[facility] [address] [place] [address] 42905 Glenn Gudino M.D. [id number] Calcium [Mass/Vol] 8.2 mg/dL Low 8.4-10.[address] [facility] Comment on above: Order Comment: [facility] has implemented the eGFR calculation approach that does not have a coefficient for race that conforms to the NKF-ASN Task Force Recommendations. Performed By: #### 4 6449 ####[facility] [address] [place] [address] 04657 Glenn Gudino M.D. [id number] Chloride [Moles/Vol] 104 mmol/L Normal 98-108 [facility] Comment on above: Order Comment: [facility] has implemented the eGFR calculation approach that does not have a coefficient for race that conforms to the NKF-ASN Task Force Recommendations. Performed By: #### 4 6449 ####[facility] [address] [place], [place] [address] Glenn Gudino M.D. [id number] Creatinine [Mass/Vol] 1.96 mg/dL High 0.60-1.10 [facility] Comment on above: Order Comment: [facility] has implemented the eGFR calculation approach that does not have a coefficient for race that conforms to the NKF-ASN Task Force Recommendations. Performed By: #### 4 6449 ####[facility] [address] [place], [place] [address] Glenn Gudnio M.D. [id number] EGFR 29 mL/min/1.73 m2 Low >=60 [facility] Comment on above: Order Comment: [facility] has implemented the eGFR calculation approach that does not have a coefficient for race that conforms to the NKF-ASN Task Force Recommendations. Result Comment: Joi mated GFR was calculated using the 2020 CKD-EPI creatinine equation. Performed By: #### 4 6449 ####[facility] [address] [place] [address] 86430 Glenn Gudino M.D. [id number] Glucose [Mass/Vol] 80 mg/dL Normal 65-[address] [facility] Comment on above: Order Comment: [facility] has implemented the eGFR calculation approach that does not have a coefficient for race that conforms to the NKF-ASN Task Force Recommendations. Performed By: #### 4 6449 ####[facility] [address] [place] [address] 70034 Glenn Gudino M.D. [id number] HCO3 (Bld) [Moles/Vol] 20 mmol/L Low 21-32 [facility] Comment on above: Order Comment: [facility] has implemented the eGFR calculation approach that does not have a coefficient for race that conforms to the NKF-ASN Task Force Recommendations. Performed By: #### 4 6449 ####[facility] [address] [place] [address] 18208 Glenn Gudino M.D. [id number] Phosphate [Mass/Vol] 3.9 mg/dL Normal 2.8-4.1 [facility] Comment on above: Order Comment: [facility] has implemented the eGFR calculation approach that does not have a coefficient for race that conforms to the NKF-ASN Task Force Recommendations. Performed By: #### 4 6449 ####[facility] [address] [place] [address] 65857 Glenn Gudino M.D. [id number] Potassium [Moles/Vol] 4.2 mmol/L Normal 3.5-5.1 [facility] Comment on above: Order Comment: [facility] has implemented the eGFR calculation approach that does not have a coefficient for race that conforms to the NKF-ASN Task Force Recommendations. Performed By: #### 4 6449 ####[facility] [address] [place] [address] 99403 Glenn Gudino M.D. [id number] Sodium [Moles/Vol] 135 mmol/L Normal 135-[address] [facility] Comment on above: Order Comment: [facility] has implemented the eGFR calculation approach that does not have a coefficient for race that conforms to the NKF-ASN Task Force Recommendations. Performed By: #### 4 6449 ####[facility] [address] [place] [address] 80615 Glenn Gudino M.D. [id number] Urea nitrogen [Mass/Vol] 32 mg/dL High 8-25 [facility] Comment on above: Order Comment: [facility] has implemented the eGFR calculation approach that does not have a coefficient for race that conforms to the NKF-ASN Task Force Recommendations. Performed By: #### 4 6449 ####[facility] [address] [place] [address] 26387 Glenn Gudino M.D. [id number] Urea nitrogen/Creatinine [Mass ratio] 16.3 mg/mg Normal 10.0-20.0 [facility] Comment on above: Order Comment: [facility] has implemented the eGFR calculation approach that does not have a coefficient for race that conforms to the NKF-ASN Task Force Recommendations. Performed By: #### 4 6449 ####[facility] [address] [place] [address] 70763 Glenn Gudino M.D. [id number] URINALYSISon 01-20-2024 AMORPHOUS CRYSTALS Few Abnormal None Seen , Rare [facility] Comment on above: Order Comment: Micro scopic examination is performed on all urinalysis samples and only positive findings are reported. The test for blood on the chemical analytic portion of urinalysis may also be positive due to hemoglobinuria and myoglobinuria and if red blood cells are present they are quantified by microscopic examination. Performed By: #### 4 6625 ####[facility] [address] [place] [address] 98026 Glenn Gudino M.D. [id number] BACTERIA, URINE Few Abnormal None Seen [facility] Comment on above: Order Comment: Micro scopic examination is performed on all urinalysis samples and only positive findings are reported. The test for blood on the chemical analytic portion of urinalysis may also be positive due to hemoglobinuria and myoglobinuria and if red blood cells are present they are quantified by microscopic examination. Performed By: #### 4 6625 ####[facility] [address] [place], [place] [address] Glenn Gudino M.D. [id number] BILIRUBIN, URINE Negative Normal Negative [facility] Comment on above: Order Comment: Micro scopic examination is performed on all urinalysis samples and only positive findings are reported. The test for blood on the chemical analytic portion of urinalysis may also be positive due to hemoglobinuria and myoglobinuria and if red blood cells are present they are quantified by microscopic examination. Performed By: #### 4 6625 ####[facility] [address] [place] [address] Glenn Gudino M.D. [id number] BLOOD, URINE Negative Normal Negative [facility] Comment on above: Order Comment: Micro scopic examination is performed on all urinalysis samples and only positive findings are reported. The test for blood on the chemical analytic portion of urinalysis may also be positive due to hemoglobinuria and myoglobinuria and if red blood cells are present they are quantified by microscopic examination. Performed By: #### 4 6625 ####[facility] [address] [place] [address] 18001 Glenn Gudino M.D. [id number] Clarity (U) Cloudy Abnormal Clear [facility] Comment on above: Order Comment: Micro scopic examination is performed on all urinalysis samples and only positive findings are reported. The test for blood on the chemical analytic portion of urinalysis may also be positive due to hemoglobinuria and myoglobinuria and if red blood cells are present they are quantified by microscopic examination. Performed By: #### 4 6625 ####[facility] [address] [place] [address] 27887 Glenn Gudino M.D. [id number] Color (U) Yellow Normal Colorless, Yellow [facility] Comment on above: Order Comment: Micro scopic examination is performed on all urinalysis samples and only positive findings are reported. The test for blood on the chemical analytic portion of urinalysis may also be positive due to hemoglobinuria and myoglobinuria and if red blood cells are present they are quantified by microscopic examination. Performed By: #### 4 6625 ####[facility] [address] [place] [address] Glenn Gudino M.D. [id number] Glucose Ql (U) Negative Normal Negative [facility] Comment on above: Order Comment: Micro scopic examination is performed on all urinalysis samples and only positive findings are reported. The test for blood on the chemical analytic portion of urinalysis may also be positive due to hemoglobinuria and myoglobinuria and if red blood cells are present they are quantified by microscopic examination. Performed By: #### 4 6625 ####[facility] [address] [place] [address] Glenn Gudino M.D. [id number] Ketones Ql (U) Negative Normal Negative [facility] Comment on above: Order Comment: Micro scopic examination is performed on all urinalysis samples and only positive findings are reported. The test for blood on the chemical analytic portion of urinalysis may also be positive due to hemoglobinuria and myoglobinuria and if red blood cells are present they are quantified by microscopic examination. Performed By: #### 4 6625 ####[facility] [address] [place] [address] Glenn Gudino M.D. [id number] Leukocyte esterase Test strip Ql (U) Small Abnormal Negative [facility] Comment on above: Order Comment: Micro scopic examination is performed on all urinalysis samples and only positive findings are reported. The test for blood on the chemical analytic portion of urinalysis may also be positive due to hemoglobinuria and myoglobinuria and if red blood cells are present they are quantified by microscopic examination. Performed By: #### 4 6625 ####[facility] [address] [place] [address] Glenn Gudino M.D. [id number] NITRITE, URINE Negative Normal Negative [facility] Comment on above: Order Comment: Micro scopic examination is performed on all urinalysis samples and only positive findings are reported. The test for blood on the chemical analytic portion of urinalysis may also be positive due to hemoglobinuria and myoglobinuria and if red blood cells are present they are quantified by microscopic examination. Performed By: #### 4 6625 ####[facility] [address] [place] [address] Glenn Gudino M.D. [id number] pH (U) 7.5 [pH] High 5.0-7.0 [facility] Comment on above: Order Comment: Micro scopic examination is performed on all urinalysis samples and only positive findings are reported. The test for blood on the chemical analytic portion of urinalysis may also be positive due to hemoglobinuria and myoglobinuria and if red blood cells are present they are quantified by microscopic examination. Performed By: #### 4 6625 ####[facility] [address] [place] [address] Glenn Gudino M.D. [id number] Protein (U) [Mass/Vol] 100 mg/dL Abnormal Negative Ri [facility] Comment on above: Order Comment: Micro scopic examination is performed on all urinalysis samples and only positive findings are reported. The test for blood on the chemical analytic portion of urinalysis may also be positive due to hemoglobinuria and myoglobinuria and if red blood cells are present they are quantified by microscopic examination. Performed By: #### 4 6625 ####[facility] [address] [place], [place] [id number] Glenn Gudino M.D. [id number] RBC LM.HPF (Urine sed) [#/Area] 1 /[HPF] Normal 0-3 [facility] Comment on above: Order Comment: Micro scopic examination is performed on all urinalysis samples and only positive findings are reported. The test for blood on the chemical analytic portion of urinalysis may also be positive due to hemoglobinuria and myoglobinuria and if red blood cells are present they are quantified by microscopic examination. Performed By: #### 4 6625 ####[facility] [address] [place] [address] 93220 Glenn Gudino M.D. [id number] Specific gravity (U) [Rel density] 1.018 Normal 1.005-1.02 5 [facility] Comment on above: Order Comment: Micro scopic examination is performed on all urinalysis samples and only positive findings are reported. The test for blood on the chemical analytic portion of urinalysis may also be positive due to hemoglobinuria and myoglobinuria and if red blood cells are present they are quantified by microscopic examination. Performed By: #### 4 [id number] ####[facility] [address] [place] [address] Glenn Gudino M.D. [id number] SQUAMOUS EPITHELIAL 1 /hpf Normal 0-4 [facility] Comment on above: Order Comment: Micro scopic examination is performed on all urinalysis samples and only positive findings are reported. The test for blood on the chemical analytic portion of urinalysis may also be positive due to hemoglobinuria and myoglobinuria and if red blood cells are present they are quantified by microscopic examination. Performed By: #### 4 [id number] ####[facility] [address] [place], [place] [id number] Glenn Gudino M.D. [id number] UROBILINOGEN, URINE <2.0 Normal <2.0 [facility] Comment on above: Order Comment: Micro scopic examination is performed on all urinalysis samples and only positive findings are reported. The test for blood on the chemical analytic portion of urinalysis may also be positive due to hemoglobinuria and myoglobinuria and if red blood cells are present they are quantified by microscopic examination. Performed By: #### 4 [id number] ####[facility] [address] [place] [address] Glenn Gudino M.D. [id number] WBC LM.HPF (Urine sed) [#/Area] 18 /[HPF] High 0-5 [facility] Comment on above: Order Comment: Micro scopic examination is performed on all urinalysis samples and only positive findings are reported. The test for blood on the chemical analytic portion of urinalysis may also be positive due to hemoglobinuria and myoglobinuria and if red blood cells are present they are quantified by microscopic examination. Performed By: #### 4 [id number] ####[facility] [address] [address] Glenn Gudion M.D. [id number] US RENAL AND BLADDERon 01-19 US RENAL AND BLADDER Normal [facility] Comment on above: Order Comment: Injur y/Trauma or Illness?:Illness/OtherHow long have you had these symptoms (acute/chronic)?:UnknownReason for exam?:akiHistory of cancer?:uSurgeries, chemotherapy, or radiation?:uType of Exam?:UnknownAdditional signs and symptoms?:- H AND Ney 01-19-2024 H AND P Normal [facility] CT ANGIOGRAM CHEST ABDOMEN P ELVISon [...] I71.32 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) T81.89XA Postoperative leak COMPARISON: CT angiogram of [...] decr (more content not included)... Normal [facility] Comment on above: Order Comment: Injur y/Trauma [...] Date: 01/05/2024 9:06 AM Patient Status: Outpatient Product Inspection Coordinator: Mary Newell, DEVIN, RVS Referring Physician: SARATH REY ; Indications - AAA stent graft I71.3 - Abdominal aortic aneurysm, ruptured Procedure Description 58169 Duplex scan of aorta, inferior vena cava, [...] Prox EMMANUEL Trans Diam 1.[address] [facility] ABDOMINAL AORTIC ANEURYSM DUPLEX (AAA) Patient Info Name: SCOTT OBREGON Age: 63 years : 1960 Gender: Female Exam Date: 01/05/2024 9:06 AM Patient Status: Outpatient Product Inspection Coordinator: Mary Newell, DOLOREST, RVS Referring Physician: SARATH REY ; Indications - AAA stent graft I71.3 - Abdominal aortic aneurysm, ruptured Procedure Description 90261 Duplex scan of aorta, inferior vena cava, [...] 01/05/2024 9:06:00 AM. Report Signatures Finalized by MICHAEL Pepe MD on 01/05/2024 11:41 AM Measurements Name Value [...] Left Prox EMMANUEL Trans Diam 1.3 cm Dictated by: SARATH REY on MonJan 05, 2024 11:42:09 AM EDT Transcribed by: SARATH REY on MonJan 05, 2024 11:42:09 AM EDT Finalized by: SARATH REY on MonJan 05, 2024 11:42:09 AM EDT [facility] RENAL ARTERY DUPLEX LIMIT EDon 01-05-2024 US RENAL ARTERY DUPLEX LIMITED Patient Info Name: SCOTT OBREGON Age: 63 years : 1960 Gender: Female Exam Date: 01/05/2024 9:37 AM Patient Status: Outpatient Product Inspection Coordinator: Mary Newell, DEVIN, RVS Referring Physician: SARATH REY ; Indications - left renal artery chimney N28.9 - Renal insufficiency Procedure Description 71311 Duplex scan of arterial inflow and venous [...] Rey MD, RPVI on 01/05/2024 11:58 AM [facility] RENAL ARTERY DUPLEX LIMITED Patient Info Name: SCOTT OBREGON Age: 63 years : 1960 Gender: Female Exam Date: 01/05/2024 9:37 AM Patient Status: Outpatient Product Inspection Coordinator: Mary Newell, RVT, RVS Referring Physician: SARATH REY ; Indications - left renal artery chimney N28.9 - Renal insufficiency Procedure Description 92239 Duplex scan of arterial inflow and venous [...] 05, 2024 11:59:06 AM EDT Normal [facility] External Lab PT/INRon 2023 INR Coag (PPP) [Relative time] 1.7 {INR} [facility] No Panel Informationon 01-02 [facility] [place] POCT PT/INROrdered By: Makenzie Garza on 01-03-2024 INR Coag (Bld) [Relative time] 1.7 {INR} Abnormal 0.8 - 1.1 [facility] Comment on above: 5.0 mg, all other do ses stay the same Interpretation and review of laboratory results Abnormal [facility] External Lab PT/INRon 2023 INR Coag (PPP) [Relative time] 2.1 {INR} [facility] No Panel Informationon 12-26 [facility] POCT PT/INROrdered By: Antonietta Monk on 12-27-2023 INR Coag (Bld) [Relative time] 2.1 {INR} Abnormal 0.8 - 1.1 [facility] Interpretation and review of laboratory results Abnormal [facility] BASIC METABOLIC PANELon 11-27 Anion gap [Moles/Vol] 14 mmol/L Normal 10-20 [facility] Comment on above: Order Comment: Jennifer retana the induction phase of oral anticoagulation, the INR may not reflect the anticoagulation status of the patient. Therapeutic ranges for INR's are: Most clinical situations: INR 2.0-3.0 Mechanical Prosthetic Valve: INR 2.5-3.5 Critical: INR >5.0 Performed By: #### 4 [id number] #### LAB [address] [place] [address] Jaron Méndez M.D. [id number] Calcium [Mass/Vol] 9.0 mg/dL Normal 8.4-10.2 [facility] Comment on above: Order Comment: Jennifer retana the induction phase of oral anticoagulation, the INR may not reflect the anticoagulation status of the patient. Therapeutic ranges for INR's are: Most clinical situations: INR 2.0-3.0 Mechanical Prosthetic Valve: INR 2.5-3.5 Critical: INR >5.0 Performed By: #### 4 6391 #### LAB [address] [place] [address] Jaron Méndez M.D. [id number] Chloride [Moles/Vol] 98 mmol/L Normal 98-108 [facility] Comment on above: Order Comment: Jennifer retana the induction phase of oral anticoagulation, the INR may not reflect the anticoagulation status of the patient. Therapeutic ranges for INR's are: Most clinical situations: INR 2.0-3.0 Mechanical Prosthetic Valve: INR 2.5-3.5 Critical: INR >5.0 Performed By: #### 4 [id number] #### LAB [address] [place] [address] Jaron Méndez M.D. [id number] Creatinine [Mass/Vol] 1.40 mg/dL High 0.60-1.10 [facility] Comment on above: Order Comment: Jennifer retana the induction phase of oral anticoagulation, the INR may not reflect the anticoagulation status of the patient. Therapeutic ranges for INR's are: Most clinical situations: INR 2.0-3.0 Mechanical Prosthetic Valve: INR 2.5-3.5 Critical: INR >5.0 Performed By: #### 4 [id number] #### LAB [address] [place] [address] Jaron Méndez M.D. [id number] EGFR 43 mL/min/1.73 m2 Low >=60 [facility] Comment on above: [...] equation. Performed By: #### 4 6391 #### LAB [address] [place] [address] Jaron Méndez M.D. [id number] Glucose [Mass/Vol] 89 mg/dL Normal 65-99 [facility] Comment on above: Order Comment: Jennifer retana the induction phase of oral anticoagulation, the INR may not reflect the anticoagulation status of the patient. Therapeutic ranges for INR's are: Most clinical situations: INR 2.0-3.0 Mechanical Prosthetic Valve: INR 2.5-3.5 Critical: INR >5.0 Performed By: #### 4 6391 #### LAB [address] [place] [address] Jaron Méndez M.D. [id number] HCO3 (Bld) [Moles/Vol] 25 mmol/L Normal 21-32 [facility] Comment on above: Order Comment: Jennifer g the induction phase of oral anticoagulation, the INR may not reflect the anticoagulation status of the patient. Therapeutic ranges for INR's are: Most clinical situations: INR 2.0-3.0 Mechanical Prosthetic Valve: INR 2.5-3.5 Critical: INR >5.0 Performed By: #### 4 [id number] #### LAB [address] [place] [address] Jaron Méndez M.D. [id number] Potassium [Moles/Vol] 4.5 mmol/L Normal 3.5-5.1 [facility] Comment on above: Order Comment: Durin g the induction phase of oral anticoagulation, the INR may not reflect the anticoagulation status of the patient. Therapeutic ranges for INR's are: Most clinical situations: INR 2.0-3.0 Mechanical Prosthetic Valve: INR 2.5-3.5 Critical: INR >5.0 Performed By: #### 4 [id number] #### LAB [address] [place] [address] Jaron Méndez M.D. [id number] Sodium [Moles/Vol] 132 mmol/L Low 135-145 [facility] Comment on above: Order Comment: Durin g the induction phase of oral anticoagulation, the INR may not reflect the anticoagulation status of the patient. Therapeutic ranges for INR's are: Most clinical situations: INR 2.0-3.0 Mechanical Prosthetic Valve: INR 2.5-3.5 Critical: INR >5.0 Performed By: #### 4 [id number] #### LAB [address] [place] [address] Jaron Méndez M.D. [id number] Urea nitrogen [Mass/Vol] 25 mg/dL Normal 8-25 [facility] Comment on above: Order Comment: Durin g the induction phase of oral anticoagulation, the INR may not reflect the anticoagulation status of the patient. Therapeutic ranges for INR's are: Most clinical situations: INR 2.0-3.0 Mechanical Prosthetic Valve: INR 2.5-3.5 Critical: INR >5.0 Performed By: #### 4 [id number] #### LAB [address] [place] [address] Jaron Méndez M.D. [id number] Urea nitrogen/Creatinine [Mass ratio] 17.9 mg/mg Normal 10.0-20.0 [facility] Comment on above: Order Comment: Durin g the induction phase of oral anticoagulation, the INR may not reflect the anticoagulation status of the patient. Therapeutic ranges for INR's are: Most clinical situations: INR 2.0-3.0 Mechanical Prosthetic Valve: INR 2.5-3.5 Critical: INR >5.0 Performed By: #### 4 [id number] #### LAB [address] [place] [address] Jaron Méndez M.D. [id number] PT/INRon 12-21-2023 INR Coag (PPP) [Relative time] 2.9 {INR} High 0.8-1.1 [facility] Comment on above: Order Comment: Jennifer retana the induction phase of oral anticoagulation, the INR may not reflect the anticoagulation status of the patient. Therapeutic ranges for INR's are: Most clinical situations: INR 2.0-3.0 Mechanical Prosthetic Valve: INR 2.5-3.5 Critical: INR >5.0 Performed By: #### 4 6391 #### LAB [address] [place] [address] Jaron Méndez M.D. [id number] PT Coag (PPP) [Time] 31.1 s High 11.8-14.3 [facility] Comment on above: Order Comment: Jennifer retana the induction phase of oral anticoagulation, the INR may not reflect the anticoagulation status of the patient. Therapeutic ranges for INR's are: Most clinical situations: INR 2.0-3.0 Mechanical Prosthetic Valve: INR 2.5-3.5 Critical: INR >5.0 Performed By: #### 4 [id number] #### LAB [address] [place] [address] Jaron Méndez M.D. [id number] [facility] POCT PT/INROrdered By: Adilene Albright on 12-20-2023 INR Coag (Bld) [Relative time] 4.4 {INR} Abnormal 0.8 - 1.1 [facility] Comment on above: Patient will get a b lood draw at [facility] tomorrow morning. Coumadin clinic aware. She is holing her dose for tonight. Interpretation and review of laboratory results Abnormal [facility] External Lab PT/INRon 2023 INR Coag (PPP) [Relative time] 4.1 {INR} [facility] No Panel Informationon 12-12 [facility] POCT PT/INROrdered By: Makenzie Garza on 12-13-2023 INR Coag (Bld) [Relative time] 4.1 {INR} Abnormal 0.8 - 1.1 [facility] Interpretation and review of laboratory results Abnormal [facility] POC CREATININE - Yoanna 11-26 Creatinine [Mass/Vol] 1.7 mg/dL High 0.6-1.2 [facility] External Lab PT/INRon 2023 INR Coag (PPP) [Relative time] 4.4 {INR} [facility] No Panel Informationon 12-05 [facility] POCT PT/INROrdered By: Makenzie Greg on 12-06-2023 INR Coag (Bld) [Relative time] 4.4 {INR} Abnormal 0.8 - 1.1 [facility] Comment on above: Pt declined venipunc ture for lab draw. Coumadin clinic aware. See Narrative note Interpretation and review of laboratory results Abnormal [facility] External Lab PT/INRon 2023 INR Coag (PPP) [Relative time] 3.5 {INR} [facility] No Panel Informationon 11-28 [facility] POCT PT/INROrdered By: Adilene Albright on 11-29-2023 INR Coag (Bld) [Relative time] 3.5 {INR} Abnormal 0.8 - 1.1 [facility] Interpretation and review of laboratory results Abnormal [facility] US ANKLE/BRACHIAL INDICES EX TREMITY LIMITEDon 11-28-2023 US ANKLE/BRACHIAL INDICES EXTREMITY LIMITED Patient Info Name: SCOTT OBREGON Age: 63 years : 1960 Gender: Female Exam Date: 11/28/2023 3:21 PM Patient Status: Outpatient Product Inspection Coordinator: AMBER LUCIO Mago Referring Physician: ABIGAIL ESTRELLA ; Indications - Left foot ischemia with ischemic ulcers I73.9 - Peripheral vascular disease, unspecified Procedure Description 21212 Limited bilateral noninvasive physiologic studies of upper [...] Carcamo DO on 11/28/2023 03:38 PM Normal [facility] US ANKLE/BRACHIAL INDICES EXTREMITY LIMITED Patient Info Name: SCOTT OBREGON Age: 63 years : 1960 Gender: Female Exam Date: 11/28/2023 3:21 PM Patient Status: Outpatient Product Inspection Coordinator: AMBER LUCIO RVT Referring Physician: ABIGAIL ESTRELLA ; Indications - Left foot ischemia with ischemic ulcers I73.9 - Peripheral vascular disease, unspecified Procedure Description 87196 Limited bilateral noninvasive physiologic studies of upper [...] MonNov 28, 2023 3:44:31 PM EDT Normal [facility] CBC WITH AUTO DIFFERENTIALon 11-23-2023 AUTO NRBC 0.0 % Normal [facility] Comment on above: Performed By: #### L [id number] #### [facility] [address] [address] Jaron Méndez M.D. [id number] AUTO NRBC ABS COUNT 0.00 K/mcL Normal 0.00-0.00 [facility] Comment on above: Performed By: #### L [id number] #### LAB [address] [address] Jaron Méndez M.D. [id number] BASOPHILS ABSOLUTE COUNT 0.04 K/mcL Normal 0.00-0.30 [facility] Comment on above: Performed By: #### L [id number] #### LAB [address] [address] Jaron Méndez M.D. [id number] Basophils/100 WBC (Bld) 0.6 % Normal [facility] Comment on above: Performed By: #### L [id number] #### [facility] [address] [address] Jaron Méndez M.D. [id number] Eosinophils (Bld) [#/Vol] 0.07 10*3/uL Normal 0.00-0.50 [facility] Comment on above: Performed By: #### L [id number] #### LAB [address] [place] [address] Jaron Méndez M.D. [id number] Eosinophils/100 WBC (Bld) 1.1 % Normal [facility] Comment on above: Performed By: #### L [id number] #### LAB [address] [place] [address] Jaron Méndez M.D. [id number] Erythrocyte distribution width (RBC) [Ratio] 17.9 % High 11.6-14.8 [facility] Comment on above: Performed By: #### L [id number] #### LAB [address] [place] [address] Jaron Méndez M.D. [id number] Hematocrit (Bld) [Volume fraction] 29.2 % Low 36.0-46.0 [facility] Comment on above: Performed By: #### L [id number] #### LAB [address] [place] [address] Jaron Méndez M.D. [id number] Hemoglobin (Bld) [Mass/Vol] 9.0 g/dL Low 12.0-16.0 [facility] Comment on above: Performed By: #### L [id number] #### LAB [address] [place] [address] Jaron Méndez M.D. [id number] IG ABSOLUTE 0.06 K/mcL Normal 0.00-0.30 [facility] Comment on above: Performed By: #### L [id number] #### LAB [address] [place] [address] Jaron Méndez M.D. [id number] IG PERCENT 0.90 % Normal [facility] Comment on above: Result Comment: The IG parameter is the percentage of metamyelocytes, myelocytes and promyelocytes. An immature granulocyte count (IG) of 1% or more suggests the possibility of infection, an IG count of 3% is very likely related to an infection. Performed By: #### L [id number] #### LAB [address] [place] [address] Jaron Méndez M.D. [id number] Lymphocytes (Bld) [#/Vol] 1.09 10*3/uL Normal 0.90-4.00 [facility] Comment on above: Performed By: #### L [id number] #### LAB [address] [place] [address] Jraon Méndez M.D. [id number] Lymphocytes/100 WBC (Bld) 16.7 % Normal [facility] Comment on above: Performed By: #### L [id number] #### LAB [address] [place] [address] Jaron Méndez M.D. [id number] MCH (RBC) [Entitic mass] 27.4 pg Normal 26.0-34.0 [facility] Comment on above: Performed By: #### L [id number] #### LAB [address] [place] [address] Jaron Méndez M.D. [id number] MCV (RBC) [Entitic vol] 88.8 fL Normal 80.0-100.0 [facility] Comment on above: Performed By: #### L [id number] #### LAB [address] [place] [address] Jaron Méndez M.D. [id number] MEAN CORPUSCULAR HEMOGLOBIN CONC 30.8 g/dL Low 31.0-37.0 [facility] Comment on above: Performed By: #### L [id number] #### LAB [address] [place] [address] Jaron Méndez M.D. [id number] Monocytes (Bld) [#/Vol] 0.56 10*3/uL Normal 0.30-0.90 [facility] Comment on above: Performed By: #### L [id number] #### LAB [address] [place] [address] Jaron Méndez M.D. [id number] Monocytes/100 WBC (Bld) 8.6 % Normal [facility] Comment on above: Performed By: #### L [id number] #### LAB [address] [place] [address] Jaron Méndez M.D. [id number] NEUTROPHILS ABSOLUTE COUNT 4.72 K/mcL Normal 1.70-7.00 [facility] Comment on above: Performed By: #### L [id number] #### LAB [address] [address] Jaron Méndez M.D. [id number] Neutrophils/100 WBC (Bld) 72.1 % Normal [facility] Comment on above: Performed By: #### L [id number] #### LAB [address] [place] [address] Jaron Méndez M.D. [id number] Platelet mean volume (Bld) [Entitic vol] 10.2 fL Normal 9.4-12.4 [facility] Comment on above: Performed By: #### L [id number] #### LAB [address] [place] [address] Jarno Méndez M.D. [id number] Platelets (Bld) [#/Vol] 299 10*3/uL Normal 150-400 [facility] Comment on above: Performed By: #### L [id number] #### LAB [address] [place] [address] Jaron Méndez M.D. [id number] RBC (Bld) [#/Vol] 3.29 10*6/uL Low 4.00-5.20 [facility] Comment on above: Performed By: #### L [id number] #### LAB [address] [place] [address] Jaron Méndez M.D. [id number] WBC (Bld) [#/Vol] 6.54 10*3/uL Normal 4.50-11.00 [facility] Comment on above: Performed By: #### L [id number] #### LAB [address] [address] Jaron Méndez M.D. [id number] COMPREHENSIVE METABOLIC PANE [facility] 11-23-2023 Albumin [Mass/Vol] 3.4 g/dL Normal 3.2-5.2 [facility] Comment on above: Order Comment: [facility] has implemented the eGFR calculation approach that does not have a coefficient for race that conforms to the NKF-ASN Task Force Recommendations. Performed By: #### 4 6126 #### LAB [address] [address] Jaron Méndez M.D. [id number] ALP [Catalytic activity/Vol] 82 U/L Normal 40-150 [facility] Comment on above: Order Comment: [facility] has implemented the eGFR calculation approach that does not have a coefficient for race that conforms to the NKF-ASN Task Force Recommendations. Performed By: #### 4 6126 #### LAB [address] [address] Jaron Méndez M.D. [id number] ALT [Catalytic activity/Vol] 21 U/L Normal 0-35 U/L [facility] Comment on above: Order Comment: [facility] has implemented the eGFR calculation approach that does not have a coefficient for race that conforms to the NKF-ASN Task Force Recommendations. Performed By: #### 4 6126 #### LAB [address] [address] Jaron Méndez M.D. [id number] Anion gap [Moles/Vol] 16 mmol/L Normal 10-20 [facility] Comment on above: Order Comment: [facility] has implemented the eGFR calculation approach that does not have a coefficient for race that conforms to the NKF-ASN Task Force Recommendations. Performed By: #### 4 6126 #### LAB [address] [address] Jaron Méndez M.D. [id number] AST [Catalytic activity/Vol] 43 U/L High 0-35 U/L [facility] Comment on above: Order Comment: [facility] has implemented the eGFR calculation approach that does not have a coefficient for race that conforms to the NKF-ASN Task Force Recommendations. Performed By: #### 4 6126 #### LAB [address] [address] Jaron Méndez M.D. [id number] Bilirubin [Mass/Vol] 0.3 mg/dL Normal 0.0-1.3 [facility] Comment on above: Order Comment: [facility] has implemented the eGFR calculation approach that does not have a coefficient for race that conforms to the NKF-ASN Task Force Recommendations. Performed By: #### 4 6126 #### LAB [address] [address] Jaron Méndez M.D. [id number] Calcium [Mass/Vol] 8.8 mg/dL Normal 8.4-10.2 [facility] Comment on above: Order Comment: [facility] has implemented the eGFR calculation approach that does not have a coefficient for race that conforms to the NKF-ASN Task Force Recommendations. Performed By: #### 4 6126 #### LAB [address] [address] Jaron Méndez M.D. [id number] Chloride [Moles/Vol] 101 mmol/L Normal 98-108 [facility] Comment on above: Order Comment: [facility] has implemented the eGFR calculation approach that does not have a coefficient for race that conforms to the NKF-ASN Task Force Recommendations. Performed By: #### 4 6126 #### LAB [address] [address] Jaron Méndez M.D. [id number] Creatinine [Mass/Vol] 1.34 mg/dL High 0.60-1.10 [facility] Comment on above: Order Comment: [facility] has implemented the eGFR calculation approach that does not have a coefficient for race that conforms to the NKF-ASN Task Force Recommendations. Performed By: #### 4 6126 #### LAB [address] [address] Jaron Méndez M.D. [id number] EGFR 45 mL/min/1.73 m2 Low >=60 [facility] Comment on above: Order Comment: [facility] has implemented the eGFR calculation approach that does not have a coefficient for race that conforms to the NKF-ASN Task Force Recommendations. Result Comment: Joi mated GFR was calculated using the 2020 CKD-EPI creatinine equation. Performed By: #### 4 6126 #### LAB [address] [address] Jaron Méndez M.D. [id number] Glucose [Mass/Vol] 102 mg/dL High 65-99 [facility] Comment on above: Order Comment: [facility] has implemented the eGFR calculation approach that does not have a coefficient for race that conforms to the NKF-ASN Task Force Recommendations. Performed By: #### 4 6126 #### LAB [address] [address] Jaron Méndez M.D. [id number] HCO3 (Bld) [Moles/Vol] 21 mmol/L Normal 21-32 [facility] Comment on above: Order Comment: [facility] has implemented the eGFR calculation approach that does not have a coefficient for race that conforms to the NKF-ASN Task Force Recommendations. Performed By: #### 4 6126 #### LAB [address] [address] Jaron Méndez M.D. [id number] Potassium [Moles/Vol] 4.4 mmol/L Normal 3.5-5.1 [facility] Comment on above: Order Comment: [facility] has implemented the eGFR calculation approach that does not have a coefficient for race that conforms to the NKF-ASN Task Force Recommendations. Performed By: #### 4 6126 #### LAB [address] [address] Jaron Méndez M.D. [id number] Protein [Mass/Vol] 7.0 g/dL Normal 6.0-8.0 [facility] Comment on above: Order Comment: [facility] Services has implemented the eGFR calculation approach that does not have a coefficient for race that conforms to the NKF-ASN Task Force Recommendations. Performed By: #### 4 6126 #### LAB [address] [place], [place] [address] Jaron Méndez M.D. [id number] Sodium [Moles/Vol] 134 mmol/L Low 135-145 [facility] Comment on above: Order Comment: [facility] has implemented the eGFR calculation approach that does not have a coefficient for race that conforms to the NKF-ASN Task Force Recommendations. Performed By: #### 4 6126 #### LAB [address] [address] Jaron Méndez M.D. [id number] Urea nitrogen [Mass/Vol] 30 mg/dL High 01-20 [facility] Comment on above: Order Comment: [facility] has implemented the eGFR calculation approach that does not have a coefficient for race that conforms to the NKF-ASN Task Force Recommendations. Performed By: #### 4 6126 #### LAB [address] [place], [place] [address] Jaron Méndez M.D. [id number] Urea nitrogen/Creatinine [Mass ratio] 22.4 mg/mg High 10.0-20.0 [facility] Comment on above: Order Comment: [facility] has implemented the eGFR calculation approach that does not have a coefficient for race that conforms to the NKF-ASN Task Force Recommendations. Performed By: #### 4 6126 #### LAB [address] [address] Jaron Méndez M.D. [id number] External Lab PT/INRon 2023 INR Coag (PPP) [Relative time] 2.5 {INR} [facility] No Panel Informationon 11-20 [facility] POCT PT/INROrdered By: Adilene Albright on 11-21-2023 INR Coag (Bld) [Relative time] 2.5 {INR} Abnormal 0.8 - 1.1 [facility] Interpretation and review of laboratory results Abnormal [facility] US RENAL ARTERY DUPLEX COMPL ETEon 11-16-2023 US RENAL ARTERY DUPLEX COMPLETE Patient Info Name: SCOTT OBREGON Age: 63 years : 1960 Gender: Female Exam Date: 11/16/2023 8:47 AM Patient Status: Outpatient Product Inspection Coordinator: Gosia Eric, BRAULIO, RVT Referring Physician: TYLOR KRUGER ; Indications - 10-09-2023 Emergent EVAR with renal stenting with Dr. Kruger/Dr. Guerra Z98.890 - Other specified postprocedural states Procedure Description 46843 Duplex scan of arterial inflow and venous [...] stent. . Report Signatures Finalized by Amador Shakh MD on 11/16/2023 01:27 PM Normal [facility] RENAL ARTERY DUPLEX COMPLETE Patient Info Name: SCOTT OBREGON Age: 63 years : 1960 Gender: Female Exam Date: 11/16/2023 8:47 AM Patient Status: Outpatient Product Inspection Coordinator: Gosia Eric, BRAULIO, RVT Referring Physician: TYLOR KRUGER ; Indications - 10-09-2023 Emergent EVAR with renal stenting with Dr. Kruger/Dr. Guerra Z98.890 - Other specified postprocedural states Procedure Description 22371 Duplex scan of arterial inflow and venous [...] MonNov 16, 2023 1:32:30 PM EDT Normal [facility] External Lab PT/INRon 2023 INR Coag (PPP) [Relative time] 3.5 {INR} [facility] No Panel Informationon 11-13 [facility] POCT PT/INROrdered By: Adilene Albright on 11-14-2023 INR Coag (Bld) [Relative time] 3.5 {INR} Abnormal 0.8 - 1.1 [facility] Interpretation and review of laboratory results Abnormal [facility] External Lab PT/INRon 2023 INR Coag (PPP) [Relative time] 2.3 {INR} [facility] No Panel Informationon 11-07 [facility] POCT PT/INROrdered By: Antonietta Monk on 11-08-2023 INR Coag (Bld) [Relative time] 2.3 {INR} Abnormal 0.8 - 1.1 [facility] Interpretation and review of laboratory results Abnormal [facility] PT Coag (PPP) [Time]on 11-01 INR Coag (PPP) [Relative time] 2.7 {INR} Normal <=5.0 [facility] Comment on above: Order Comment: The r ecommended therapeutic INR range for most cardiac indications is 2.0-3.0 For high intensity therapy (i.e. mechanical heart valves), the recommended range is 2.5-3.5 Performed By: #### 5 902-2 #### [facility] LAB [address] [place] [address] Prothrombin timeon PT Coag (PPP) [Time] 28.4 s High 11.9-14.7 Isidro mercedes [facility] Comment on above: Order Comment: The r ecommended therapeutic INR range for most cardiac indications is 2.0-3.0 For high intensity therapy (i.e. mechanical heart valves), the recommended range is 2.5-3.5 Performed By: #### 5 902-2 #### [facility] [place] [place] [place] LAB [address] [facility] [place] [address] Comprehensive metabolic 2000 panelon 10-31-2023 Albumin [Mass/Vol] 2.6 g/dL Low 3.5-4.8 [facility] Comment on above: Performed By: #### 5 902-2 #### [facility] [place] ([facility] [place] [place] LAB [address] [place] [address] ALP [Catalytic activity/Vol] 59 U/L Normal 32-91 [facility] Comment on above: Performed By: #### 5 902-2 #### [facility] [place] [place] [place] LAB [address] [place] [address] ALT [Catalytic activity/Vol] 21 U/L Normal 7-52 [facility] Comment on above: Performed By: #### 5 902-2 #### [facility] [place] [place] [place] LAB [address] [place] [address] Anion gap [Moles/Vol] 10 mmol/L Normal 6-18 [facility] Comment on above: Performed By: #### 5 902-2 #### [facility] [place] [place] [place] LAB [address] [place] [address] AST [Catalytic activity/Vol] 32 U/L Normal 15-41 [facility] Comment on above: Performed By: #### 5 902-2 #### [facility] [place] [place] [place] LAB [address] [place] [address] Bilirubin [Mass/Vol] 0.4 mg/dL Normal 0.3-1.2 [facility] Comment on above: Performed By: #### 5 902-2 #### [facility] [place] [place] [place] LAB [address] [place] [address] Calcium [Mass/Vol] 8.3 mg/dL Low 8.9-10.3 [facility] Comment on above: Performed By: #### 5 902-2 #### [facility] [place] [place] [place] LAB [address] [place] [address] Chloride [Moles/Vol] 105 mmol/L Normal 98-107 [facility] Comment on above: Performed By: #### 5 902-2 #### [facility] [place] [place] [place] LAB [address] [place] [address] CO2 [Moles/Vol] 20 mmol/L Low 22-32 [facility] Comment on above: Performed By: #### 5 902-2 #### [facility] [place] [place] [place] LAB [address] [place] [address] Creatinine [Mass/Vol] 1.12 mg/dL Normal 0.60-1.30 [facility] Comment on above: Performed By: #### 5 902-2 #### [facility] [place] [place] [place] LAB [address] [place] [address] GFR/1.73 sq M.predicted among non-blacks MDRD (S/P/Bld) [Vol rate/Area] 56 mL/min/{1.73_m2} Low >=60 [facility] Comment on above: Result Comment: Calc ulation based on the?Chronic Kidney Disease Epidemiology Collaboration (CKD-EPI) equation refit?without adjustment for race. Performed By: #### 5 902-2 #### [facility] [place] [place] [place] LAB [address] [place] [address] Glucose [Mass/Vol] 76 mg/dL Normal 70-99 [facility] Comment on above: Performed By: #### 5 902-2 #### [facility] [place] [place] [place] LAB [address] [place] [address] Potassium [Moles/Vol] 4.7 mmol/L Normal 3.6-5.1 [facility] Comment on above: Performed By: #### 5 902-2 #### [facility] [place] [place] [place] LAB [address] [place] [address] Protein [Mass/Vol] 6.4 g/dL Normal 6.1-7.9 [facility] Comment on above: Performed By: #### 5 902-2 #### [facility] [address] [place] [address] Sodium [Moles/Vol] 135 mmol/L Low 136-145 [facility] Comment on above: Performed By: #### 5 902-2 #### [facility] [address] [place] [address] Urea nitrogen [Mass/Vol] 30 mg/dL High 8-20 [facility] Comment on above: Performed By: #### 5 902-2 #### [facility] [address] [place] [address] Urea nitrogen/Creatinine [Mass ratio] 26.8 mg/mg High 12.0-20.0 [facility] Comment on above: Performed By: #### 5 902-2 #### [facility] [address] [place] [address] Hemogram and platelets WO di fferential panel (Bld)on 10-31-2023 Erythrocyte distribution width (RBC) [Ratio] 19.0 % High 11.0-14.8 [facility] Comment on above: Performed By: #### 5 902-2 #### [facility] [address] [place] [address] Hematocrit (Bld) [Volume fraction] 28.9 % Low 34.3-47.9 [facility] Comment on above: Performed By: #### 5 902-2 #### [facility] [address] [place] [address] Hemoglobin (Bld) [Mass/Vol] 8.8 g/dL Low 12.0-16.0 [facility] Comment on above: Performed By: #### 5 902-2 #### [facility] [address] [place] [address] MCH 26.7 pcg Low 27.0-34.0 [facility] Comment on above: Performed By: #### 5 902-2 #### [facility] [place] [place] [place] LAB [address] [place] [address] MCHC (RBC) [Mass/Vol] 30.4 g/dL Low 30.8-35.3 [facility] Comment on above: Performed By: #### 5 902-2 #### [facility] [place] [place] [place] LAB [address] [place] [address] MCV (RBC) [Entitic vol] 87.8 fL Normal 80.0-97.0 [facility] Comment on above: Performed By: #### 5 902-2 #### [facility] [place] [place] [place] LAB [address] [place] [address] Platelet mean volume (Bld) [Entitic vol] 9.3 fL Normal 6.2-12.1 [facility] Comment on above: Performed By: #### 5 902-2 #### [facility] [place] [place] [place] LAB [address] [place] [address] Platelets (Bld) [#/Vol] 369 10*3/uL Normal 142-424 [facility] Comment on above: Performed By: #### 5 902-2 #### [facility] [place] [place] [place] LAB [address] [place] [address] RBC (Bld) [#/Vol] 3.29 10*6/uL Low 3.74-5.34 [facility] Comment on above: Performed By: #### 5 902-2 #### [facility] [place] [place] [place] LAB [address] [place] [address] WBC (Bld) [#/Vol] 7.3 10*3/uL Normal 4.6-10.2 [facility] Comment on above: Performed By: #### 5 902-2 #### [facility] [place] [facility] [address] [place] [address] PT Coag (PPP) [Time]on 10-30 INR Coag (PPP) [Relative time] 2.8 {INR} Normal <=5.0 [facility] Comment on above: Order Comment: The r ecommended therapeutic INR range for most cardiac indications is 2.0-3.0 For high intensity therapy (i.e. mechanical heart valves), the recommended range is 2.5-3.5 Performed By: #### 5 902-2 #### [facility] [address] [place] [address] Prothrombin timeon 4 PT Coag (PPP) [Time] 29.2 s High 11.9-14.7 [facility] Comment on above: Order Comment: The r ecommended therapeutic INR range for most cardiac indications is 2.0-3.0 For high intensity therapy (i.e. mechanical heart valves), the recommended range is 2.5-3.5 Performed By: #### 5 902-2 #### [facility] LAB [address] [place] [address] Basic metabolic 2000 panelon 10-30-2023 Anion gap [Moles/Vol] 7 mmol/L Normal 6-18 [facility] Comment on above: Performed By: #### 2 4321-2 #### [facility] LAB [address] [place] [address] Calcium [Mass/Vol] 8.3 mg/dL Low 8.9-10.3 [facility] Comment on above: Performed By: #### 2 4321-2 #### [facility] [address] [place] [address] Chloride [Moles/Vol] 104 mmol/L Normal 98-107 [facility] Comment on above: Performed By: #### 2 4321-2 #### [facility] LAB [address] [place] [address] CO2 [Moles/Vol] 22 mmol/L Normal 22-32 [facility] Comment on above: Performed By: #### 2 4321-2 #### [facility] [place] [facility] [address] [place] [address] Creatinine [Mass/Vol] 1.20 mg/dL Normal 0.60-1.30 [facility] Comment on above: Performed By: #### 2 4321-2 #### [facility] [place] [facility] [address] [place] [address] GFR/1.73 sq M.predicted among non-blacks MDRD (S/P/Bld) [Vol rate/Area] 52 mL/min/{1.73_m2} Low >=60 [facility] Comment on above: Result Comment: Calc ulation based on the?Chronic Kidney Disease Epidemiology Collaboration (CKD-EPI) equation refit?without adjustment for race. Performed By: #### 2 4321-2 #### [facility] [place] [facility] [place] [place] LAB [address] [place] [address] Glucose [Mass/Vol] 79 mg/dL Normal 70-99 [facility] Comment on above: Performed By: #### 2 4321-2 #### [facility] [place] [facility] [place] [place] LAB [address] [place] [address] Potassium [Moles/Vol] 4.4 mmol/L Normal 3.6-5.1 [facility] Comment on above: Performed By: #### 2 4321-2 #### [facility] [place] [facility] [place] [place] LAB [address] [place] [address] Sodium [Moles/Vol] 133 mmol/L Low 136-145 [facility] Comment on above: Performed By: #### 2 4321-2 #### [facility] [place] [facility] [address] [place] [address] Urea nitrogen [Mass/Vol] 29 mg/dL High 8-20 [facility] Comment on above: Performed By: #### 2 4321-2 #### [facility] [place] [facility] [place] [place] LAB [address] [place] [address] Urea nitrogen/Creatinine [Mass ratio] 24.2 mg/mg High 12.0-20.0 [facility] Comment on above: Performed By: #### 2 4321-2 #### [facility] [place] [facility] [place] [place] LAB [address] [place] [address] Hemogram and platelets WO di fferential panel (Bld)on 10-30-2023 Erythrocyte distribution width (RBC) [Ratio] 19.1 % High 11.0-14.8 [facility] Comment on above: Performed By: #### 5 902-2 #### [facility] [place] [facility] [place] [place] LAB [address] [place] [address] Hematocrit (Bld) [Volume fraction] 29.6 % Low 34.3-47.9 [facility] Comment on above: Performed By: #### 5 902-2 #### [facility] [place] [facility] [place] [place] LAB [address] [place] [address] Hemoglobin (Bld) [Mass/Vol] 9.1 g/dL Low 12.0-16.0 [facility] Comment on above: Performed By: #### 5 902-2 #### [facility] [place] [facility] [place] [place] LAB [address] [place] [address] MCH 26.8 pcg Low 27.0-34.0 [facility] Comment on above: Performed By: #### 5 902-2 #### [facility] [place] [facility] [place] [place] LAB [address] [place] [address] MCHC (RBC) [Mass/Vol] 30.7 g/dL Low 30.8-35.3 [facility] Comment on above: Performed By: #### 5 902-2 #### [facility] [place] [facility] [place] [place] LAB [address] [place] [address] MCV (RBC) [Entitic vol] 87.1 fL Normal 80.0-97.0 [facility] Comment on above: Performed By: #### 5 902-2 #### [facility] [place] [place] [place] LAB [address] [place] [address]297 Platelet mean volume (Bld) [Entitic vol] 9.5 fL Normal 6.2-12.1 [facility] Comment on above: Performed By: #### 902-2 #### [facility] [place] [facility] [address] [place] [address] Platelets (Bld) [#/Vol] 338 10*3/uL Normal 142-424 [facility] Comment on above: Performed By: #### 2-2 #### [facility] [place] [facility] [place] [place] LAB [address] [place] [address] RBC (Bld) [#/Vol] 3.40 10*6/uL Low 3.74-5.34 [facility] Comment on above: Performed By: #### -2 #### [facility] [place] [facility] [place] [place] LAB [address] [place] [address] WBC (Bld) [#/Vol] 5.7 10*3/uL Normal 4.6-10.2 [facility] Comment on above: Performed By: #### 2-2 #### [facility] [place] [facility] [place] [place] LAB [address] [place] [address]67 Nuclear IgG IA Ql (S)on Amorphous Crystals, Urine Moderate Abnormal None [facility] Comment on above: Performed By: #### -2 #### [facility] [place] [facility] [address] [place] [address] Bacteria, Urine Rare Abnormal None [facility] Comment on above: Performed By: #### 2-2 #### [facility] [place] [facility] [place] [place] LAB [address] [place] [address] Bilirubin, Urine Negative Normal Negative [facility] Comment on above: Performed By: #### -2 #### [facility] [place] [facility] [address] [place] [address] Blood, Urine 1+ Abnormal Negative, Trace [facility] Comment on above: Performed By: #### 2-2 #### [facility] [place] [facility] [place] [place] LAB [address] [place] [address] Clarity (U) Hazy Abnormal Clear [facility] Comment on above: Performed By: #### 902-2 #### [facility] [place] [facility] [place] [place] LAB [address] [place] [address] Color (U) Yellow Normal Yellow [facility] Comment on above: Performed By: #### 902-2 #### [facility] [place] [facility] [address] [place] [address] Glucose Ql (U) Normal Normal Normal [facility] Comment on above: Performed By: #### 2-2 #### [facility] [place] [facility] [place] [place] LAB [address] [place] [address]5765 Ketones Ql (U) Negative Normal Negative [facility] Comment on above: Performed By: #### 2-2 #### [facility] [place] [facility] [place] [place] LAB [address] [place] [address]4497 Leukocytes, Urine 75 WBCs/mcL Abnormal Negative [facility] Comment on above: Performed By: #### 2-2 #### [facility] [place] [facility] [place] [place] [address] [place] [address] 26929 Mucus, UA Rare Abnormal None [facility] Comment on above: Performed By: #### 90-2 #### [facility] [place] [facility] [place] [place] [address] [place] [address]461 Nitrite, Urine Negative Normal Negative [facility] Comment on above: Performed By: #### 902-2 #### [facility] [place] [facility] [place] [place] [address] [place] [address]347 pH (U) 7.5 [pH] Normal 5.0-8.0 [facility] Comment on above: Performed By: #### 902-2 #### [facility] [place] [facility] [address] [place] [address]960 Protein (U) [Mass/Vol] 50 mg/dL Abnormal Negative [facility] Comment on above: Performed By: #### 902-2 #### [facility] [place] [facility] [address] [place] [address] RBC LM.HPF (Urine sed) [#/Area] 3 /[HPF] Normal 0-5 [facility] Comment on above: Performed By: #### 5 902-2 #### [facility] [place] [facility] [place] [place] [address] [place] [address] Specific [place] Urine 1.024 Normal 1.002 -1.03 0 [facility] Comment on above: Performed By: #### 5 902-2 #### [facility] [place] [facility] [address] [place] [address] Squamous Epithelial, Urine Rare Abnormal None [facility] Comment on above: Performed By: #### 5 902-2 #### [facility] [place] [facility] [address] [place] [address] Triple Phosphate Crystals, Urine Rare Abnormal None [facility] Comment on above: Performed By: #### 5 902-2 #### [facility] [place] [facility] [address] [place] [address] Urobilinogen, Urine Normal Normal Normal [facility] Comment on above: Performed By: #### 5 902-2 #### [facility] [place] [facility] [address] [place] [address] WBC LM.HPF (Urine sed) [#/Area] 19 /[HPF] High 0-5 [facility] Comment on above: Performed By: #### 5 902-2 #### [facility] [place] [facility] [address] [place] [address] PT Coag (PPP) [Time]on 10-29 INR Coag (PPP) [Relative time] 2.5 {INR} Normal <=5.0 [facility] Comment on above: Order Comment: The r ecommended therapeutic INR range for most cardiac indications is 2.0-3.0 For high intensity therapy (i.e. mechanical heart valves), the recommended range is 2.5-3.5 Performed By: #### 5 902-2 #### [facility] [address] [place] [address] Prothrombin timeon 4 PT Coag (PPP) [Time] 26.6 s High 11.9-14.7 [facility] Comment on above: Order Comment: The r ecommended therapeutic INR range for most cardiac indications is 2.0-3.0 For high intensity therapy (i.e. mechanical heart valves), the recommended range is 2.5-3.5 Performed By: #### 5 902-2 #### [facility] [address] [place] [address] Sodium (U) [Moles/Vol]on Creatinine, Urine 76.8 mg/dL Normal [facility] Comment on above: Order Comment: No re ference range has been established for this assay (test result). Performed By: #### 2 4321-2 #### [facility] [address] [place] [address] PT Coag (PPP) [Time]on 10-28 INR Coag (PPP) [Relative time] 2.6 {INR} Normal <=5.0 [facility] Comment on above: Order Comment: The r ecommended therapeutic INR range for most cardiac indications is 2.0-3.0 For high intensity therapy (i.e. mechanical heart valves), the recommended range is 2.5-3.5 Performed By: #### 5 902-2 #### [facility] [address] [place] [address] Prothrombin timeon 4 PT Coag (PPP) [Time] 27.3 s High 11.9-14.7 [facility] Comment on above: Order Comment: The r ecommended therapeutic INR range for most cardiac indications is 2.0-3.0 For high intensity therapy (i.e. mechanical heart valves), the recommended range is 2.5-3.5 Performed By: #### 5 902-2 #### [facility] [address] [place] [address] PT Coag (PPP) [Time]on 10-27 INR Coag (PPP) [Relative time] 2.6 {INR} Normal <=5.0 [facility] Comment on above: Order Comment: The r ecommended therapeutic INR range for most cardiac indications is 2.0-3.0 For high intensity therapy (i.e. mechanical heart valves), the recommended range is 2.5-3.5 Performed By: #### 5 902-2 #### [facility] [place] [facility] [address] [place] [address] Prothrombin timeon PT Coag (PPP) [Time] 27.3 s High 11.9-14.7 [facility] Comment on above: Order Comment: The r ecommended therapeutic INR range for most cardiac indications is 2.0-3.0 For high intensity therapy (i.e. mechanical heart valves), the recommended range is 2.5-3.5 Performed By: #### 5 902-2 #### [facility] [address] [place] [address] Comprehensive metabolic 2000 panelon 10-27-2023 Albumin [Mass/Vol] 2.7 g/dL Low 3.5-4.8 [facility] Comment on above: Performed By: #### 2 4323-8 #### [facility] [address] [place] [address] ALP [Catalytic activity/Vol] 59 U/L Normal 32-91 [facility] Comment on above: Performed By: #### 2 4323-8 #### [facility] [address] [place] [address] ALT [Catalytic activity/Vol] 21 U/L Normal 7-52 [facility] Comment on above: Performed By: #### 2 4323-8 #### [facility] [place] [place] [place] [address] [place] [address] Anion gap [Moles/Vol] 9 mmol/L Normal 6-18 [facility] Comment on above: Performed By: #### 2 4323-8 #### [facility] [place] [facility] [address] [place] [address] AST [Catalytic activity/Vol] 34 U/L Normal 15-41 [facility] Comment on above: Performed By: #### 2 4323-8 #### [facility] [place] [facility] [address] [place] [address] Bilirubin [Mass/Vol] 0.5 mg/dL Normal 0.3-1.2 [facility] Comment on above: Performed By: #### 2 4323-8 #### [facility] [place] [place] [place] [address] [place] [address] Calcium [Mass/Vol] 8.4 mg/dL Low 8.9-10.3 [facility] Comment on above: Performed By: #### 2 4323-8 #### [facility] [place] [place] [place] [address] [place] [address] Chloride [Moles/Vol] 106 mmol/L Normal 98-107 [facility] Comment on above: Performed By: #### 2 432-8 #### [facility] [place] [place] [place] [address] [place] [address] CO2 [Moles/Vol] 20 mmol/L Low 22-32 [facility] Comment on above: Performed By: #### 2 4323-8 #### [facility] [place] [place] [place] [address] [place] [address] Creatinine [Mass/Vol] 1.22 mg/dL Normal 0.60-1.30 [facility] Comment on above: Performed By: #### 2 4323-8 #### [facility] [place] [place] [place] [address] [place] [address] GFR/1.73 sq M.predicted among non-blacks MDRD (S/P/Bld) [Vol rate/Area] 51 mL/min/{1.73_m2} Low >=60 [facility] Comment on above: Result Comment: Calc ulation based on the?Chronic Kidney Disease Epidemiology Collaboration (CKD-EPI) equation refit?without adjustment for race. Performed By: #### 2 4323-8 #### [facility] [place] [facility] [address] [place] [address] Glucose [Mass/Vol] 78 mg/dL Normal 70-99 [facility] Comment on above: Performed By: #### 2 4323-8 #### [facility] [place] [facility] [address] [place] [address] Potassium [Moles/Vol] 4.6 mmol/L Normal 3.6-5.1 [facility] Comment on above: Performed By: #### 2 4323-8 #### [facility] [place] [facility] [address] [place] [address] Protein [Mass/Vol] 6.4 g/dL Normal 6.1-7.9 [facility] Comment on above: Performed By: #### 2 432-8 #### [facility] [place] [facility] [place] [place] [address] [place] [address] Sodium [Moles/Vol] 135 mmol/L Low 136-145 [facility] Comment on above: Performed By: #### 2 432-8 #### [facility] [place] [facility] [address] [place] [address] Urea nitrogen [Mass/Vol] 33 mg/dL High 8-20 [facility] Comment on above: Performed By: #### 2 4323-8 #### [facility] [place] [facility] [address] [place] [address] Urea nitrogen/Creatinine [Mass ratio] 27.0 mg/mg High 12.0-20.0 [facility] Comment on above: Performed By: #### 2 4323-8 #### [facility] [place] [facility] [address] [place] [address] Hemogram and platelets WO di fferential panel (Bld)on 10-27-2023 Erythrocyte distribution width (RBC) [Ratio] 19.0 % High 11.0-14.8 [facility] Comment on above: Performed By: #### 2 1-2 #### [facility] [place] [facility] [address] [place] [address] Hematocrit (Bld) [Volume fraction] 28.1 % Low 34.3-47.9 [facility] Comment on above: Performed By: #### 2 1-2 #### [facility] [place] [facility] [address] [place] [address] Hemoglobin (Bld) [Mass/Vol] 8.7 g/dL Low 12.0-16.0 [facility] Comment on above: Performed By: #### 2 4320-2 #### [facility] [place] [facility] [address] [place] [address] MCH 26.4 pcg Low 27.0-34.0 [facility] Comment on above: Performed By: #### 2 4320-2 #### [facility] [place] [facility] [address] [place] [address] MCHC (RBC) [Mass/Vol] 31.0 g/dL Normal 30.8-35.3 [facility] Comment on above: Performed By: #### 2 4320-2 #### [facility] [place] [facility] [place] [place] [address] [place] [address] MCV (RBC) [Entitic vol] 85.2 fL Normal 80.0-97.0 [facility] Comment on above: Performed By: #### 2 1-2 #### [facility] [place] [facility] [place] [place] [address] [place] [address] Platelet mean volume (Bld) [Entitic vol] 9.2 fL Normal 6.2-12.1 [facility] Comment on above: Performed By: #### 2 4320-2 #### [facility] [place] [facility] [place] [place] [address] [place] [address] Platelets (Bld) [#/Vol] 396 10*3/uL Normal 142-424 [facility] Comment on above: Performed By: #### 2 4321-2 #### [facility] [place] [facility] [address] [place] [address] RBC (Bld) [#/Vol] 3.30 10*6/uL Low 3.74-5.34 [facility] Comment on above: Performed By: #### 2 4321-2 #### [facility] [place] [facility] [address] [place] [address] WBC (Bld) [#/Vol] 7.2 10*3/uL Normal 4.6-10.2 [facility] Comment on above: Performed By: #### 2 4321-2 #### [facility] [address] [place] [address] PT Coag (PPP) [Time]on 10-26 INR Coag (PPP) [Relative time] 2.5 {INR} Normal <=5.0 [facility] Comment on above: Order Comment: The r ecommended therapeutic INR range for most cardiac indications is 2.0-3.0 For high intensity therapy (i.e. mechanical heart valves), the recommended range is 2.5-3.5 Performed By: #### 5 902-2 #### [facility] [address] [place] [address] Prothrombin timeon PT Coag (PPP) [Time] 26.3 s High 11.9-14.7 [facility] Comment on above: Order Comment: The r ecommended therapeutic INR range for most cardiac indications is 2.0-3.0 For high intensity therapy (i.e. mechanical heart valves), the recommended range is 2.5-3.5 Performed By: #### 5 902-2 #### [facility] [place] [facility] [address] [place] [address] 79692 Basic metabolic 2000 panelon 10-26-2023 Iron [Mass/Vol] 25 ug/dL Low 37-145 [facility] Comment on above: Performed By: #### 2 4321-2 #### [facility] [address] [place] [address] Iron Saturation 12 % Low 20-55 [facility] Comment on above: Performed By: #### 2 4321-2 #### [facility] [place] [facility] [address] [place] [address] 74663 TIBC 214 mcg/dL Low 228-428 [facility] Comment on above: Performed By: #### 2 4321-2 #### [facility] [place] [facility] [address] [place] [address] Hemogram and platelets WO di fferential panel (Bld)on 10-26-2023 Erythrocyte distribution width (RBC) [Ratio] 18.9 % High 11.0-14.8 [facility] Comment on above: Performed By: #### 2 4317-0 #### [facility] [address] [place] [address] Hematocrit (Bld) [Volume fraction] 28.9 % Low 34.3-47.9 [facility] Comment on above: Performed By: #### 2 4317-0 #### [facility] [address] [place] [address] Hemoglobin (Bld) [Mass/Vol] 9.0 g/dL Low 12.0-16.0 [facility] Comment on above: Performed By: #### 2 4317-0 #### [facility] [address] [place] [address] 73767 MCH 26.4 pcg Low 27.0-34.0 [facility] Comment on above: Performed By: #### 2 4317-0 #### [facility] [address] [place] [address] 23445 MCHC (RBC) [Mass/Vol] 31.1 g/dL Normal 30.8-35.3 [facility] Comment on above: Performed By: #### 2 4317-0 #### [facility] [address] [place] [address] 16551 MCV (RBC) [Entitic vol] 84.8 fL Normal 80.0-97.0 [facility] Comment on above: Performed By: #### 2 4317-0 #### [facility] [place] [facility] [place] [place] [address] [place] [address]451 Platelet mean volume (Bld) [Entitic vol] 9.1 fL Normal 6.2-12.1 [facility] Comment on above: Performed By: #### 2 4317-0 #### [facility] [place] [facility] [place] [place] [address] [place] [address] 30197 Platelets (Bld) [#/Vol] 417 10*3/uL Normal 142-424 [facility] Comment on above: Performed By: #### 2 4317-0 #### [facility] [place] [place] [address] [place] [address] 10060 RBC (Bld) [#/Vol] 3.41 10*6/uL Low 3.74-5.34 [facility] Comment on above: Performed By: #### 2 4317-0 #### [facility] [place] [facility] [place] [place] [address] [place] [address] 12888 WBC (Bld) [#/Vol] 7.5 10*3/uL Normal 4.6-10.2 [facility] Comment on above: Performed By: #### 2 4317-0 #### [facility] [place] [facility] [place] [place] [address] [place] [address] PT Coag (PPP) [Time]on 10-25 INR Coag (PPP) [Relative time] 2.1 {INR} Normal <=5.0 [facility] Comment on above: Order Comment: The r ecommended therapeutic INR range for most cardiac indications is 2.0-3.0 For high intensity therapy (i.e. mechanical heart valves), the recommended range is 2.5-3.5 Performed By: #### 5 902-2 #### [facility] [place] [facility] [place] [place] [address] [place] [address] Prothrombin timeon PT Coag (PPP) [Time] 23.2 s High 11.9-14.7 [facility] Comment on above: Order Comment: The r ecommended therapeutic INR range for most cardiac indications is 2.0-3.0 For high intensity therapy (i.e. mechanical heart valves), the recommended range is 2.5-3.5 Performed By: #### 5 902-2 #### [facility] [place] [facility] [place] [place] [address] [place] [address] Basic metabolic 2000 panelon 10-25-2023 Anion gap [Moles/Vol] 9 mmol/L Normal 6-18 [facility] Comment on above: Performed By: #### 5 902-2 #### [facility] [place] [facility] [place] [place] [address] [place] [address]75 Calcium [Mass/Vol] 8.4 mg/dL Low 8.9-10.3 [facility] Comment on above: Performed By: #### 5 902-2 #### [facility] [place] [facility] [place] [place] [address] [place] [address]679 Chloride [Moles/Vol] 104 mmol/L Normal 98-107 [facility] Comment on above: Performed By: #### 5 902-2 #### [facility] [place] [facility] [place] [place] [address] [place] [address] CO2 [Moles/Vol] 20 mmol/L Low 22-32 [facility] Comment on above: Performed By: #### 5 902-2 #### [facility] [place] [facility] [place] [place] [address] [place] [address] Creatinine [Mass/Vol] 1.25 mg/dL Normal 0.60-1.30 [facility] Comment on above: Performed By: #### 5 902-2 #### [facility] [place] [facility] [place] [place] [address] [place] [address] GFR/1.73 sq M.predicted among non-blacks MDRD (S/P/Bld) [Vol rate/Area] 49 mL/min/{1.73_m2} Low >=60 [facility] Comment on above: Result Comment: Calc ulation based on the?Chronic Kidney Disease Epidemiology Collaboration (CKD-EPI) equation refit?without adjustment for race. Performed By: #### 5 902-2 #### [facility] [place] [place] [address] [place] [address] Glucose [Mass/Vol] 80 mg/dL Normal 70-99 [facility] Comment on above: Performed By: #### 5 902-2 #### [facility] [place] [place] [address] [place] [address] Potassium [Moles/Vol] 4.6 mmol/L Normal 3.6-5.1 [facility] Comment on above: Performed By: #### 5 902-2 #### [facility] [place] [place] [address] [place] [address]55 Sodium [Moles/Vol] 133 mmol/L Low 136-145 [facility] Comment on above: Performed By: #### 5 902-2 #### [facility] [address] [place] [address]609 Urea nitrogen [Mass/Vol] 27 mg/dL High 8-20 [facility] Comment on above: Performed By: #### 5 902-2 #### [facility] [place] [place] [address] [place] [address] 89457 Urea nitrogen/Creatinine [Mass ratio] 21.6 mg/mg High 12.0-20.0 [facility] Comment on above: Performed By: #### 5 902-2 #### [facility] [place] [place] [address] [place] [address]16 Blood type and Indirect anti body screen panel (Bld)on 10-25-2023 ABO group Nom (Bld) O Normal [facility] Comment on above: Performed By: #### 3 4532-2 #### [facility] [address] [place] [address] Rh Type Positive Normal [facility] Comment on above: Performed By: #### 3 4532-2 #### [facility] ([facility]) [facility] [address] [place] [address] Hemogram and platelets WO di fferential panel (Bld)on 10-25-2023 Erythrocyte distribution width (RBC) [Ratio] 18.3 % High 11.0-14.8 [facility] Comment on above: Performed By: #### 2 4317-0 #### [facility] [address] [place] [address] Hematocrit (Bld) [Volume fraction] 22.1 % Low 34.3-47.9 [facility] Comment on above: Performed By: #### 2 4317-0 #### [facility] [place] [place] [address] [place] [address] 87664 Hemoglobin (Bld) [Mass/Vol] 6.7 g/dL Critically low 12.0-16.0 [facility] Comment on above: Performed By: #### 2 4317-0 #### [facility] [place] [facility] [place] [place] [address] [place] [address] 30610 MCH 27.0 pcg Normal 27.0-34.0 [facility] Comment on above: Performed By: #### 2 4317-0 #### [facility] [place] [facility] [place] [place] [address] [place] [address] 53686 MCHC (RBC) [Mass/Vol] 30.3 g/dL Low 30.8-35.3 [facility] Comment on above: Performed By: #### 2 4317-0 #### [facility] [place] [facility] [place] [place] [address] [place] [address] 64310 MCV (RBC) [Entitic vol] 89.1 fL Normal 80.0-97.0 [facility] Comment on above: Performed By: #### 2 4317-0 #### [facility] [place] [facility] [place] [place] [address] [place] [address] 47832 Platelet mean volume (Bld) [Entitic vol] 9.1 fL Normal 6.2-12.1 [facility] Comment on above: Performed By: #### 2 4317-0 #### [facility] [place] [facility] [address] [place] [address] 30519 Platelets (Bld) [#/Vol] 434 10*3/uL High 142-424 [facility] Comment on above: Performed By: #### 2 4317-0 #### [facility] [place] [facility] [place] [place] [address] [place] [address] 08601 RBC (Bld) [#/Vol] 2.48 10*6/uL Low 3.74-5.34 [facility] Comment on above: Performed By: #### 2 4317-0 #### [facility] [place] [facility] [place] [place] [address] [place] [address] 53522 WBC (Bld) [#/Vol] 8.6 10*3/uL Normal 4.6-10.2 [facility] Comment on above: Performed By: #### 2 4317-0 #### [facility] [place] [facility] [place] [place] [address] [place] [address] 14832 PT Coag (PPP) [Time]on 10-24 INR Coag (PPP) [Relative time] 2.0 {INR} Normal <=5.0 [facility] Comment on above: Order Comment: The r ecommended therapeutic INR range for most cardiac indications is 2.0-3.0 For high intensity therapy (i.e. mechanical heart valves), the recommended range is 2.5-3.5 Performed By: #### 5 902-2 #### [facility] [place] [facility] [place] [place] [address] [place] [address] 86466 Prothrombin timeon PT Coag (PPP) [Time] 22.0 s High 11.9-14.7 [facility] Comment on above: Order Comment: The r ecommended therapeutic INR range for most cardiac indications is 2.0-3.0 For high intensity therapy (i.e. mechanical heart valves), the recommended range is 2.5-3.5 Performed By: #### 5 902-2 #### [facility] [address] [place] [address] 27086 PT Coag (PPP) [Time]on 10-23 INR Coag (PPP) [Relative time] 1.8 {INR} Normal <=5.0 [facility] Comment on above: Order Comment: The r ecommended therapeutic INR range for most cardiac indications is 2.0-3.0 For high intensity therapy (i.e. mechanical heart valves), the recommended range is 2.5-3.5 Performed By: #### 5 902-2 #### [facility] [address] [place] [address] 82567 Prothrombin timeon 4 PT Coag (PPP) [Time] 20.2 s High 11.9-14.7 [facility] Comment on above: Order Comment: The r ecommended therapeutic INR range for most cardiac indications is 2.0-3.0 For high intensity therapy (i.e. mechanical heart valves), the recommended range is 2.5-3.5 Performed By: #### 5 902-2 #### [facility] [address] [place] [address] 12159 PT Coag (PPP) [Time]on 10-22 INR Coag (PPP) [Relative time] 1.7 {INR} Normal <=5.0 [facility] Comment on above: Order Comment: The r ecommended therapeutic INR range for most cardiac indications is 2.0-3.0For high intensity therapy (i.e. mechanical heart valves), the recommended range is 2.5-3.5 Performed By: #### 2 4321-2 #### [facility] [address] [place] [address] 23540 Prothrombin timeon 4 PT Coag (PPP) [Time] 19.6 s High 11.9-14.7 [facility] Comment on above: Order Comment: The r ecommended therapeutic INR range for most cardiac indications is 2.0-3.0For high intensity therapy (i.e. mechanical heart valves), the recommended range is 2.5-3.5 Performed By: #### 2 4321-2 #### [facility] [address] [place] [id number] PT Coag (PPP) [Time]on 10-20 INR Coag (PPP) [Relative time] 2.9 {INR} Normal <=5.0 [facility] Comment on above: Order Comment: The r ecommended therapeutic INR range for most cardiac indications is 2.0-3.0 For high intensity therapy (i.e. mechanical heart valves), the recommended range is 2.5-3.5 Performed By: #### 5 902-2 #### [facility] [address] [place] [id number] Prothrombin timeon PT Coag (PPP) [Time] 29.5 s High 11.9-14.7 [facility] Comment on above: Order Comment: The r ecommended therapeutic INR range for most cardiac indications is 2.0-3.0 For high intensity therapy (i.e. mechanical heart valves), the recommended range is 2.5-3.5 Performed By: #### 5 902-2 #### [facility] [address] [place] [id number] CALCIUM, IONIZEDon 4 CALCIUM IONIZED 4.4 mg/dL Low 4.5-5.3 [facility] Comment on above: Performed By: #### 4 5190 ####[facility] [place], [place] [address] Glenn Gudino M.D. [id number] CBCon 10-20-2023 AUTO NRBC 0.0 % Normal [facility] Comment on above: Performed By: #### 4 [id number] ####[facility] [place], [place] [address] Glenn Gudino M.D. [id number] AUTO NRBC ABS COUNT 0.00 K/mcL Normal 0.00-0.00 [facility] Comment on above: Performed By: #### 4 [id number] ####[facility] [address] [place], [place] [id number] Glenn Gudino M.D. [id number] Erythrocyte distribution width (RBC) [Ratio] 17.4 % High 11.6-14.8 [facility] Comment on above: Performed By: #### 4 [id number] ####[facility] [address] [place] [address] Glenn Gudino M.D. [id number] Hematocrit (Bld) [Volume fraction] 23.6 % Low 36.0-46.0 [facility] Comment on above: Performed By: #### 4 [id number] ####[facility] [address] [place] [address] Glenn Gudino M.D. [id number] Hemoglobin (Bld) [Mass/Vol] 7.4 g/dL Low 12.0-16.0 [facility] Comment on above: Performed By: #### 4 [id number] ####[facility] [address] [place], [place] [id number] Glenn Gudino M.D. [id number] MCH (RBC) [Entitic mass] 27.4 pg Normal 26.0-34.0 [facility] Comment on above: Performed By: #### 4 [id number] ####[facility] [address] [place], [place] [id number] Glenn Gudino M.D. [id number] MCV (RBC) [Entitic vol] 87.4 fL Normal 80.0-100.0 [facility] Comment on above: Performed By: #### 4 5216 ####[facility] [address] [place] [address] Glenn Gudino M.D. [id number] MEAN CORPUSCULAR HEMOGLOBIN CONC 31.4 g/dL Normal 31.0-37.0 [facility] Comment on above: Performed By: #### 4 [id number] ####[facility] [address] [place], [place] [id number] Glenn Gudino M.D. [id number] Platelet mean volume (Bld) [Entitic vol] 9.3 fL Low 9.4-12.4 [facility] Comment on above: Performed By: #### 4 [id number] ####[facility] [address] [place] [address] Glenn Gudino M.D. [id number] Platelets (Bld) [#/Vol] 489 10*3/uL High 150-400 [facility] Comment on above: Performed By: #### 4 [id number] ####[facility] [address] [place], [place] [id number] Glenn Gudino M.D. [id number] RBC (Bld) [#/Vol] 2.70 10*6/uL Low 4.00-5.20 [facility] Comment on above: Performed By: #### 4 [id number] ####[facility] [address] [place], [place] [id number] Glenn Gudino M.D. [id number] WBC (Bld) [#/Vol] 12.80 10*3/uL High 4.50-11.00 [facility] Comment on above: Performed By: #### 4 [id number] ####[facility] [address] [place], [place] [id number] Glenn Gudino M.D. [id number] COMPREHENSIVE METABOLIC PANE Magdaleno 10-20-2023 Albumin [Mass/Vol] 2.3 g/dL Low 3.2-5.[address] [facility] Comment on above: Order Comment: [facility] has implemented the eGFR calculation approach that does not have a coefficient for race that conforms to the NKF-ASN Task Force Recommendations. Performed By: #### 4 6126 ####[facility] [address] [place] [address] Glenn Gudino M.D. [id number] ALP [Catalytic activity/Vol] 104 U/L Normal 40-150 [facility] Comment on above: Order Comment: [facility] has implemented the eGFR calculation approach that does not have a coefficient for race that conforms to the NKF-ASN Task Force Recommendations. Performed By: #### 4 6126 ####[facility] [address] [place], [place] [id number] Glenn Gudino M.D. [id number] ALT [Catalytic activity/Vol] 26 U/L Normal 0-35 U/L [facility] Comment on above: Order Comment: [facility] has implemented the eGFR calculation approach that does not have a coefficient for race that conforms to the NKF-ASN Task Force Recommendations. Performed By: #### 4 6126 ####[facility] [address] [place] [address] Glenn Gudino M.D. [id number] Anion gap [Moles/Vol] 11 mmol/L Normal 10-20 [facility] Comment on above: Order Comment: [facility] has implemented the eGFR calculation approach that does not have a coefficient for race that conforms to the NKF-ASN Task Force Recommendations. Performed By: #### 4 6126 ####[facility] [address] [place], [place] [address] Glenn Gudino M.D. [id number] AST [Catalytic activity/Vol] 59 U/L High 0-35 U/L [facility] Comment on above: Order Comment: [facility] has implemented the eGFR calculation approach that does not have a coefficient for race that conforms to the NKF-ASN Task Force Recommendations. Performed By: #### 4 6126 ####[facility] [address] [place], [place] [id number] Glenn Gudino M.D. [id number] Bilirubin [Mass/Vol] 0.4 mg/dL Normal 0.0-1.3 [facility] Comment on above: Order Comment: [facility] has implemented the eGFR calculation approach that does not have a coefficient for race that conforms to the NKF-ASN Task Force Recommendations. Performed By: #### 4 6126 ####[facility] [address] [place], [place] [address] Glenn Gudino M.D. [id number] Calcium [Mass/Vol] 7.9 mg/dL Low 8.4-10.[address] [facility] Comment on above: Order Comment: [facility] has implemented the eGFR calculation approach that does not have a coefficient for race that conforms to the NKF-ASN Task Force Recommendations. Performed By: #### 4 6126 ####[facility] [address] [place], [place] [address] Glenn Gudino M.D. [id number] Chloride [Moles/Vol] 105 mmol/L Normal 98-108 [facility] Comment on above: Order Comment: [facility] has implemented the eGFR calculation approach that does not have a coefficient for race that conforms to the NKF-ASN Task Force Recommendations. Performed By: #### 4 6126 ####[facility] [address] [place], [place] [address] Glenn Gudino M.D. [id number] Creatinine [Mass/Vol] 0.84 mg/dL Normal 0.60-1.10 [facility] Comment on above: Order Comment: [facility] has implemented the eGFR calculation approach that does not have a coefficient for race that conforms to the NKF-ASN Task Force Recommendations. Performed By: #### 4 6126 ####[facility] [address] [place], [place] [address] Glenn Gudino M.D. [id number] EGFR 79 mL/min/1.73 m2 Normal >=60 [facility] Comment on above: Order Comment: [facility] has implemented the eGFR calculation approach that does not have a coefficient for race that conforms to the NKF-ASN Task Force Recommendations. Result Comment: Joi mated GFR was calculated using the 2020 CKD-EPI creatinine equation. Performed By: #### 4 6126 ####[facility] [address] [place], [place] [address] Glenn Gudino M.D. [id number] Glucose [Mass/Vol] 106 mg/dL High 65-[address] [facility] Comment on above: Order Comment: [facility] has implemented the eGFR calculation approach that does not have a coefficient for race that conforms to the NKF-ASN Task Force Recommendations. Performed By: #### 4 6126 ####[facility] [address] [place] [address] Glenn Gudino M.D. [id number] HCO3 (Bld) [Moles/Vol] 23 mmol/L Normal 21-32 [facility] Comment on above: Order Comment: [facility] has implemented the eGFR calculation approach that does not have a coefficient for race that conforms to the NKF-ASN Task Force Recommendations. Performed By: #### 4 6126 ####[facility] [address] [place] [address] Glenn Gudino M.D. [id number] Potassium [Moles/Vol] 4.3 mmol/L Normal 3.5-5.1 [facility] Comment on above: Order Comment: [facility] has implemented the eGFR calculation approach that does not have a coefficient for race that conforms to the NKF-ASN Task Force Recommendations. Performed By: #### 4 6126 ####[facility] [address] [place] [address] Glenn Gudino M.D. [id number] Protein [Mass/Vol] 6.2 g/dL Normal 6.0-8.[address] [facility] Comment on above: Order Comment: [facility] has implemented the eGFR calculation approach that does not have a coefficient for race that conforms to the NKF-ASN Task Force Recommendations. Performed By: #### 4 6126 ####[facility] [address] [place] [address] Glenn Gudino M.D. [id number] Sodium [Moles/Vol] 135 mmol/L Normal 135-[address] [facility] Comment on above: Order Comment: [facility] has implemented the eGFR calculation approach that does not have a coefficient for race that conforms to the NKF-ASN Task Force Recommendations. Performed By: #### 4 6126 ####[facility] [address] [place] [address] Glenn Gudino M.D. [id number] Urea nitrogen [Mass/Vol] 21 mg/dL Normal 8-25 [facility] Comment on above: Order Comment: [facility] has implemented the eGFR calculation approach that does not have a coefficient for race that conforms to the NKF-ASN Task Force Recommendations. Performed By: #### 4 6126 ####[facility] [address] [place] [address] Glenn Gudino M.D. [id number] Urea nitrogen/Creatinine [Mass ratio] 25.0 mg/mg High 10.0-20.0 [facility] Comment on above: Order Comment: [facility] has implemented the eGFR calculation approach that does not have a coefficient for race that conforms to the NKF-ASN Task Force Recommendations. Performed By: #### 4 6126 ####[facility] [address] [place] [address] Glenn Gudino M.D. [id number] Disch Summon 10-20-2023 Disch Summ Normal [facility] MAGNESIUM LEVELon 10-20-2023 Magnesium [Mass/Vol] 2.1 mg/dL Normal 1.6-2.[address] [facility] Comment on above: Performed By: #### 4 6109 ####[facility] [address] [place] [address] Glenn Gudino M.D. [id number] PHOSPHORUSon 10-20-2023 Phosphate [Mass/Vol] 2.8 mg/dL Normal 2.8-4.1 [facility] Comment on above: Performed By: #### 4 6299 ####[facility] [address] [place], [place] [id number] Glenn Gudino M.D. [id number] PT/INRon 10-20-2023 INR Coag (PPP) [Relative time] 3.6 {INR} High 0.8-1.1 [facility] Comment on above: Order Comment: Jennifer g the induction phase of oral anticoagulation, the INR may not reflect the anticoagulation status of the patient. Therapeutic ranges for INR's are:Most clinical situations: INR 2.0-3.0Mechanical Prosthetic Valve: INR 2.5-3.5Critical: INR >5.0 Performed By: #### 4 6391 ####[facility] [address] [place] [address] Glenn Gudino M.D. [id number] PT Coag (PPP) [Time] 37.0 s High 11.8-14.3 [facility] Comment on above: Order Comment: Durin g the induction phase of oral anticoagulation, the INR may not reflect the anticoagulation status of the patient. Therapeutic ranges for INR's are:Most clinical situations: INR 2.0-3.0Mechanical Prosthetic Valve: INR 2.5-3.5Critical: INR >5.0 Performed By: #### 4 6391 ####[facility] [address] [place] [address] Glenn Gudino M.D. [id number] CALCIUM, IONIZEDon CALCIUM IONIZED 4.4 mg/dL Low 4.5-5.3 [facility] Comment on above: Performed By: #### 4 5190 ####[facility] [address] [place], [place] [id number] Glenn Gudino M.D. [id number] CBCon 10-19-2023 AUTO NRBC 0.0 % Normal [facility] Comment on above: Performed By: #### 4 [id number] ####[facility] [address] [place] [address] Glenn Gudino M.D. [id number] AUTO NRBC ABS COUNT 0.00 K/mcL Normal 0.00-0.00 [facility] Comment on above: Performed By: #### 4 [id number] ####[facility] [address] [place] [address] Glenn Gudino M.D. [id number] Erythrocyte distribution width (RBC) [Ratio] 17.4 % High 11.6-14.8 [facility] Comment on above: Performed By: #### 4 [id number] ####[facility] [address] [place] [address] Glenn Gudino M.D. [id number] Hematocrit (Bld) [Volume fraction] 26.6 % Low 36.0-46.0 [facility] Comment on above: Performed By: #### 4 [id number] ####[facility] [address] [place] [address] Glenn Gudino M.D. [id number] Hemoglobin (Bld) [Mass/Vol] 8.3 g/dL Low 12.0-16.0 [facility] Comment on above: Performed By: #### 4 [id number] ####[facility] [address] [place], [place] [address] Glenn Gudino M.D. [id number] MCH (RBC) [Entitic mass] 27.5 pg Normal 26.0-34.0 [facility] Comment on above: Performed By: #### 4 6118 ####[facility] [address] [place], [place] [address] Glenn Gudino M.D. [id number] MCV (RBC) [Entitic vol] 88.1 fL Normal 80.0-100.0 [facility] Comment on above: Performed By: #### 4 [id number] ####[facility] [address] [place] [address] Glenn Gudino M.D. [id number] MEAN CORPUSCULAR HEMOGLOBIN CONC 31.2 g/dL Normal 31.0-37.0 [facility] Comment on above: Performed By: #### 4 [id number] ####[facility] [address] [place] [address] Glenn Gudino M.D. [id number] Platelet mean volume (Bld) [Entitic vol] 9.2 fL Low 9.4-12.4 [facility] Comment on above: Performed By: #### 4 [id number] ####[facility] [address] [place], [place] [address]Karma Gudino M.D. [id number] Platelets (Bld) [#/Vol] 485 10*3/uL High 150-400 [facility] Comment on above: Performed By: #### 4 [id number] ####[facility] [address] [place], [place] [address] Glenn Gudino M.D. [id number] RBC (Bld) [#/Vol] 3.02 10*6/uL Low 4.00-5.20 [facility] Comment on above: Performed By: #### 4 [id number] ####[facility] [address] [place], [place] [address] Glenn Gudino M.D. [id number] WBC (Bld) [#/Vol] 12.60 10*3/uL High 4.50-11.00 [facility] Comment on above: Performed By: #### 4 [id number] ####[facility] [address] [place], [place] [address] Glenn Gudino M.D. [id number] COMPREHENSIVE METABOLIC PANE Magdaleno 10-19-2023 Albumin [Mass/Vol] 2.3 g/dL Low 3.2-5.[address] [facility] Comment on above: Order Comment: [facility] has implemented the eGFR calculation approach that does not have a coefficient for race that conforms to the NKF-ASN Task Force Recommendations. Performed By: #### 4 6126 ####[facility] [address] [place], [place] [address] Glenn Gudino M.D. [id number] ALP [Catalytic activity/Vol] 103 U/L Normal 40-150 [facility] Comment on above: Order Comment: [facility] has implemented the eGFR calculation approach that does not have a coefficient for race that conforms to the NKF-ASN Task Force Recommendations. Performed By: #### 4 6126 ####[facility] [address] [place] [address] Glenn Gudino M.D. [id number] ALT [Catalytic activity/Vol] 23 U/L Normal 0-35 U/L [facility] Comment on above: Order Comment: [facility] has implemented the eGFR calculation approach that does not have a coefficient for race that conforms to the NKF-ASN Task Force Recommendations. Performed By: #### 4 6126 ####[facility] [address] [place], [place] [address] Glenn Gudino M.D. [id number] Anion gap [Moles/Vol] 14 mmol/L Normal 10-20 [facility] Comment on above: Order Comment: [facility] has implemented the eGFR calculation approach that does not have a coefficient for race that conforms to the NKF-ASN Task Force Recommendations. Performed By: #### 4 6126 ####[facility] [address] [place], [place] [address] Glenn Gudino M.D. [id number] AST [Catalytic activity/Vol] 63 U/L High 0-35 U/L [facility] Comment on above: Order Comment: [facility] has implemented the eGFR calculation approach that does not have a coefficient for race that conforms to the NKF-ASN Task Force Recommendations. Performed By: #### 4 6126 ####[facility] [address] [place] [address] Glenn Gudino M.D. [id number] Bilirubin [Mass/Vol] 0.6 mg/dL Normal 0.0-1.3 [facility] Comment on above: Order Comment: [facility] has implemented the eGFR calculation approach that does not have a coefficient for race that conforms to the NKF-ASN Task Force Recommendations. Performed By: #### 4 6126 ####[facility] [address] [place], [place] [address] Glenn Gudino M.D. [id number] Calcium [Mass/Vol] 8.2 mg/dL Low 8.4-10.[address] [facility] Comment on above: Order Comment: [facility] has implemented the eGFR calculation approach that does not have a coefficient for race that conforms to the NKF-ASN Task Force Recommendations. Performed By: #### 4 6126 ####[facility] [address] [place], [place] [address] Glenn Gudino M.D. [id number] Chloride [Moles/Vol] 102 mmol/L Normal 98-108 [facility] Comment on above: Order Comment: [facility] has implemented the eGFR calculation approach that does not have a coefficient for race that conforms to the NKF-ASN Task Force Recommendations. Performed By: #### 4 6126 ####[facility] [address] [place], [place] [address] Glenn uGdino M.D. [id number] Creatinine [Mass/Vol] 0.94 mg/dL Normal 0.60-1.10 [facility] Comment on above: Order Comment: [facility] has implemented the eGFR calculation approach that does not have a coefficient for race that conforms to the NKF-ASN Task Force Recommendations. Performed By: #### 4 6126 ####[facility] [address] [place], [place] [address] Glenn Gudino M.D. [id number] EGFR 69 mL/min/1.73 m2 Normal >=60 [facility] Comment on above: Order Comment: [facility] has implemented the eGFR calculation approach that does not have a coefficient for race that conforms to the NKF-ASN Task Force Recommendations. Result Comment: Joi mated GFR was calculated using the 2020 CKD-EPI creatinine equation. Performed By: #### 4 6126 ####[facility] [address] [place] [address] Glenn Gudino M.D. [id number] Glucose [Mass/Vol] 82 mg/dL Normal 65-[address] [facility] Comment on above: Order Comment: [facility] has implemented the eGFR calculation approach that does not have a coefficient for race that conforms to the NKF-ASN Task Force Recommendations. Performed By: #### 4 6126 ####[facility] [address] [place], [place] [address] Glenn Gudino M.D. [id number] HCO3 (Bld) [Moles/Vol] 22 mmol/L Normal 21-32 [facility] Comment on above: Order Comment: [facility] has implemented the eGFR calculation approach that does not have a coefficient for race that conforms to the NKF-ASN Task Force Recommendations. Performed By: #### 4 6126 ####[facility] [address] [place] [address] Glenn Gudino M.D. [id number] Potassium [Moles/Vol] 3.7 mmol/L Normal 3.5-5.1 [facility] Comment on above: Order Comment: [facility] has implemented the eGFR calculation approach that does not have a coefficient for race that conforms to the NKF-ASN Task Force Recommendations. Performed By: #### 4 6126 ####[facility] [address] [place] [address] Glenn Gudino M.D. [id number] Protein [Mass/Vol] 6.6 g/dL Normal 6.0-8.[address] [facility] Comment on above: Order Comment: [facility] has implemented the eGFR calculation approach that does not have a coefficient for race that conforms to the NKF-ASN Task Force Recommendations. Performed By: #### 4 6126 ####[facility] [address] [place] [address] Glenn Gudino M.D. [id number] Sodium [Moles/Vol] 134 mmol/L Low 135-[address] [facility] Comment on above: Order Comment: [facility] has implemented the eGFR calculation approach that does not have a coefficient for race that conforms to the NKF-ASN Task Force Recommendations. Performed By: #### 4 6126 ####[facility] [address] [place] [address] Glenn Gudino M.D. [id number] Urea nitrogen [Mass/Vol] 22 mg/dL Normal 8-25 [facility] Comment on above: Order Comment: [facility] has implemented the eGFR calculation approach that does not have a coefficient for race that conforms to the NKF-ASN Task Force Recommendations. Performed By: #### 4 6126 ####[facility] [address] [place] [address] Glenn Gudino M.D. [id number] Urea nitrogen/Creatinine [Mass ratio] 23.4 mg/mg High 10.0-20.0 [facility] Comment on above: Order Comment: [facility] has implemented the eGFR calculation approach that does not have a coefficient for race that conforms to the NKF-ASN Task Force Recommendations. Performed By: #### 4 6126 ####[facility] [address] [place], [place] [address] Glenn Gudino M.D. [id number] MAGNESIUM LEVELon 10-19-2023 Magnesium [Mass/Vol] 1.9 mg/dL Normal 1.6-2.4 [facility] Comment on above: Performed By: #### 4 6109 ####[facility] [address] [place], [place] [id number] Glenn Gudino M.D. [id number] PHOSPHORUSon 10-19-2023 Phosphate [Mass/Vol] 2.4 mg/dL Low 2.8-4.1 [facility] Comment on above: Performed By: #### 4 6299 ####[facility] [address] [place] [address] Glenn Gudino M.D. [id number] POTASSIUM LEVELon 10-19-2023 Potassium [Moles/Vol] 3.8 mmol/L Normal 3.5-5.1 [facility] Comment on above: Performed By: #### 4 6351 ####[facility] [address] [place], [place] [id number] Glenn Gudino M.D. [id number] PT/INRon 10-19-2023 INR Coag (PPP) [Relative time] 3.6 {INR} High 0.8-1.1 [facility] Comment on above: Order Comment: Jennifer retana the induction phase of oral anticoagulation, the INR may not reflect the anticoagulation status of the patient. Therapeutic ranges for INR's are:Most clinical situations: INR 2.0-3.0Mechanical Prosthetic Valve: INR 2.5-3.5Critical: INR >5.0 Performed By: #### 4 6391 ####[facility] [address] [place], [place] [address] Glenn Gudino M.D. [id number] PT Coag (PPP) [Time] 36.9 s High 11.8-14.3 [facility] Comment on above: Order Comment: Jennifer retana the induction phase of oral anticoagulation, the INR may not reflect the anticoagulation status of the patient. Therapeutic ranges for INR's are:Most clinical situations: INR 2.0-3.0Mechanical Prosthetic Valve: INR 2.5-3.5Critical: INR >5.0 Performed By: #### 4 6391 ####[facility] [address] [place] [address] Glenn Gudino M.D. [id number] CALCIUM, IONIZEDon CALCIUM IONIZED 4.7 mg/dL Normal 4.5-5.3 [facility] Comment on above: Performed By: #### 4 5190 ####[facility] [address] [place] [address] Glenn Gudino M.D. [id number] CBCon 10-18-2023 AUTO NRBC 0.0 % Normal [facility] Comment on above: Performed By: #### 4 [id number] ####[facility] [address] [place] [address] Glenn Gudino M.D. [id number] AUTO NRBC ABS COUNT 0.00 K/mcL Normal 0.00-0.00 [facility] Comment on above: Performed By: #### 4 [id number] ####[facility] [address] [place], [place] [id number] Glenn Gudino M.D. [id number] Erythrocyte distribution width (RBC) [Ratio] 17.6 % High 11.6-14.8 [facility] Comment on above: Performed By: #### 4 [id number] ####[facility] [address] [place], [place] [id number] Glenn Gudino M.D. [id number] Hematocrit (Bld) [Volume fraction] 25.4 % Low 36.0-46.0 [facility] Comment on above: Performed By: #### 4 [id number] ####[facility] [address] [place], [place] [id number] Glenn Gudino M.D. [id number] Hemoglobin (Bld) [Mass/Vol] 8.0 g/dL Low 12.0-16.0 [facility] Comment on above: Performed By: #### 4 [id number] ####[facility] [address] [place] [address] Glenn Gudino M.D. [id number] MCH (RBC) [Entitic mass] 27.1 pg Normal 26.0-34.0 [facility] Comment on above: Performed By: #### 4 [id number] ####[facility] [address] [place] [address] Glenn Gudino M.D. [id number] MCV (RBC) [Entitic vol] 86.1 fL Normal 80.0-100.0 [facility] Comment on above: Performed By: #### 4 [id number] ####[facility] [address] [place], [place] [id number] Glenn Gudino M.D. [id number] MEAN CORPUSCULAR HEMOGLOBIN CONC 31.5 g/dL Normal 31.0-37.0 [facility] Comment on above: Performed By: #### 4 5218 ####[facility] [address] [place], [place] [address]Karma Gudino M.D. [id number] Platelet mean volume (Bld) [Entitic vol] 9.0 fL Low 9.4-12.4 [facility] Comment on above: Performed By: #### 4 [id number] ####[facility] [address] [place], [place] [id number] Glenn Gudino M.D. [id number] Platelets (Bld) [#/Vol] 463 10*3/uL High 150-400 [facility] Comment on above: Performed By: #### 4 5247 ####[facility] [address] [place] [address] Glenn Gudino M.D. [id number] RBC (Bld) [#/Vol] 2.95 10*6/uL Low 4.00-5.20 [facility] Comment on above: Performed By: #### 4 [id number] ####[facility] [address] [place] [address] Glenn Gudino M.D. [id number] WBC (Bld) [#/Vol] 15.56 10*3/uL High 4.50-11.00 [facility] Comment on above: Performed By: #### 4 [id number] ####[facility] [address] [place] [address] Glenn Gudino M.D. [id number] COMPREHENSIVE METABOLIC PANE [facility] 10-18-2023 Albumin [Mass/Vol] 2.4 g/dL Low 3.2-5.[address] [facility] Comment on above: Order Comment: [facility] has implemented the eGFR calculation approach that does not have a coefficient for race that conforms to the NKF-ASN Task Force Recommendations. Performed By: #### 4 6126 ####[facility] [address] [place] [address] Glenn Gudino M.D. [id number] ALP [Catalytic activity/Vol] 100 U/L Normal 40-150 [facility] Comment on above: Order Comment: [facility] has implemented the eGFR calculation approach that does not have a coefficient for race that conforms to the NKF-ASN Task Force Recommendations. Performed By: #### 4 6126 ####[facility] [address] [place] [address] Glenn Gudino M.D. [id number] ALT [Catalytic activity/Vol] 26 U/L Normal 0-35 U/L [facility] Comment on above: Order Comment: [facility] has implemented the eGFR calculation approach that does not have a coefficient for race that conforms to the NKF-ASN Task Force Recommendations. Performed By: #### 4 6126 ####[facility] [address] [place] [address] Glenn Gudino M.D. [id number] Anion gap [Moles/Vol] 13 mmol/L Normal 10-20 [facility] Comment on above: Order Comment: [facility] has implemented the eGFR calculation approach that does not have a coefficient for race that conforms to the NKF-ASN Task Force Recommendations. Performed By: #### 4 6126 ####[facility] [address] [place] [address] Glenn Gudino M.D. [id number] AST [Catalytic activity/Vol] 52 U/L High 0-35 U/L [facility] Comment on above: Order Comment: [facility] has implemented the eGFR calculation approach that does not have a coefficient for race that conforms to the NKF-ASN Task Force Recommendations. Performed By: #### 4 6126 ####[facility] [address] [place] [address] Glenn Gudino M.D. [id number] Bilirubin [Mass/Vol] 0.5 mg/dL Normal 0.0-1.3 [facility] Comment on above: Order Comment: [facility] has implemented the eGFR calculation approach that does not have a coefficient for race that conforms to the NKF-ASN Task Force Recommendations. Performed By: #### 4 6126 ####[facility] [address] [place] [address] Glenn Gudino M.D. [id number] Calcium [Mass/Vol] 8.3 mg/dL Low 8.4-10.[address] [facility] Comment on above: Order Comment: [facility] has implemented the eGFR calculation approach that does not have a coefficient for race that conforms to the NKF-ASN Task Force Recommendations. Performed By: #### 4 6126 ####[facility] [address] [place] [address] Glenn Gudino M.D. [id number] Chloride [Moles/Vol] 101 mmol/L Normal 98-108 [facility] Comment on above: Order Comment: [facility] has implemented the eGFR calculation approach that does not have a coefficient for race that conforms to the NKF-ASN Task Force Recommendations. Performed By: #### 4 6126 ####[facility] [address] [place], [place] [address] Glenn Gudino M.D. [id number] Creatinine [Mass/Vol] 0.93 mg/dL Normal 0.60-1.10 [facility] Comment on above: Order Comment: [facility] has implemented the eGFR calculation approach that does not have a coefficient for race that conforms to the NKF-ASN Task Force Recommendations. Performed By: #### 4 6126 ####[facility] [address] [place], [place] [address] Glenn Gudino M.D. [id number] EGFR 70 mL/min/1.73 m2 Normal >=60 [facility] Comment on above: Order Comment: [facility] has implemented the eGFR calculation approach that does not have a coefficient for race that conforms to the NKF-ASN Task Force Recommendations. Result Comment: Joi mated GFR was calculated using the 2020 CKD-EPI creatinine equation. Performed By: #### 4 6126 ####[facility] [address] [place] [address] Glenn Gudino M.D. [id number] Glucose [Mass/Vol] 96 mg/dL Normal 65-[address] [facility] Comment on above: Order Comment: [facility] has implemented the eGFR calculation approach that does not have a coefficient for race that conforms to the NKF-ASN Task Force Recommendations. Performed By: #### 4 6126 ####[facility] [address] [place] [address] Glenn Gudino M.D. [id number] HCO3 (Bld) [Moles/Vol] 25 mmol/L Normal 21-32 [facility] Comment on above: Order Comment: [facility] has implemented the eGFR calculation approach that does not have a coefficient for race that conforms to the NKF-ASN Task Force Recommendations. Performed By: #### 4 6126 ####[facility] [address] [place], [place] [address] Glenn Gudino M.D. [id number] Potassium [Moles/Vol] 4.0 mmol/L Normal 3.5-5.1 [facility] Comment on above: Order Comment: [facility] has implemented the eGFR calculation approach that does not have a coefficient for race that conforms to the NKF-ASN Task Force Recommendations. Performed By: #### 4 6126 ####[facility] [address] [place], [place] [address] Glenn Gudino M.D. [id number] Protein [Mass/Vol] 6.6 g/dL Normal 6.0-8.[address] [facility] Comment on above: Order Comment: [facility] has implemented the eGFR calculation approach that does not have a coefficient for race that conforms to the NKF-ASN Task Force Recommendations. Performed By: #### 4 6126 ####[facility] [address] [place], [place] [address] Glenn Gudino M.D. [id number] Sodium [Moles/Vol] 135 mmol/L Normal 135-[address] [facility] Comment on above: Order Comment: [facility] has implemented the eGFR calculation approach that does not have a coefficient for race that conforms to the NKF-ASN Task Force Recommendations. Performed By: #### 4 6126 ####[facility] [address] [place] [address] Glenn Gudino M.D. [id number] Urea nitrogen [Mass/Vol] 22 mg/dL Normal 8-25 [facility] Comment on above: Order Comment: [facility] has implemented the eGFR calculation approach that does not have a coefficient for race that conforms to the NKF-ASN Task Force Recommendations. Performed By: #### 4 6126 ####[facility] [address] [place], [place] [address] Glenn Gudino M.D. [id number] Urea nitrogen/Creatinine [Mass ratio] 23.7 mg/mg High 10.0-20.0 [facility] Comment on above: Order Comment: [facility] has implemented the eGFR calculation approach that does not have a coefficient for race that conforms to the NKF-ASN Task Force Recommendations. Performed By: #### 4 6126 ####[facility] [address] [place], [place] [address] Glenn Gudino M.D. [id number] CONSULTon 10-18-2023 CONSULT Normal [facility] MAGNESIUM LEVELon 10-18-2023 Magnesium [Mass/Vol] 1.9 mg/dL Normal 1.6-2.4 [facility] Comment on above: Performed By: #### 4 6109 ####[facility] [address] [place], [place] [address] Glenn Gudino M.D. [id number] PHOSPHORUSon 10-18-2023 Phosphate [Mass/Vol] 2.6 mg/dL Low 2.8-4.1 [facility] Comment on above: Performed By: #### 4 6299 ####[facility] [address] [place], [place] [address] Glenn Gudino M.D. [id number] PT/INRon 10-18-2023 INR Coag (PPP) [Relative time] 3.4 {INR} High 0.8-1.1 [facility] Comment on above: Order Comment: Jennifer retana the induction phase of oral anticoagulation, the INR may not reflect the anticoagulation status of the patient. Therapeutic ranges for INR's are:Most clinical situations: INR 2.0-3.0Mechanical Prosthetic Valve: INR 2.5-3.5Critical: INR >5.0 Performed By: #### 4 6391 ####[facility] [address] [place] [address] Glenn Gudino M.D. [id number] PT Coag (PPP) [Time] 35.0 s High 11.8-14.3 [facility] Comment on above: Order Comment: Jennifer retana the induction phase of oral anticoagulation, the INR may not reflect the anticoagulation status of the patient. Therapeutic ranges for INR's are:Most clinical situations: INR 2.0-3.0Mechanical Prosthetic Valve: INR 2.5-3.5Critical: INR >5.0 Performed By: #### 4 6391 ####[facility] [address] [place] [address] Glenn Gudino M.D. [id number] URINALYSISon 10-18-2023 BACTERIA, URINE Few Abnormal None Seen [facility] Comment on above: Order Comment: Micro scopic examination is performed on all urinalysis samples and only positive findings are reported. The test for blood on the chemical analytic portion of urinalysis may also be positive due to hemoglobinuria and myoglobinuria and if red blood cells are present they are quantified by microscopic examination. Performed By: #### 4 6625 ####[facility] [address] [place] [address] Glenn Gudino M.D. [id number] BILIRUBIN, URINE Negative Normal Negative [facility] Comment on above: Order Comment: Micro scopic examination is performed on all urinalysis samples and only positive findings are reported. The test for blood on the chemical analytic portion of urinalysis may also be positive due to hemoglobinuria and myoglobinuria and if red blood cells are present they are quantified by microscopic examination. Performed By: #### 4 6625 ####[facility] [address] [place] [address] Glenn Gudino M.D. [id number] BLOOD, URINE Small Abnormal Negative [facility] Comment on above: Order Comment: Micro scopic examination is performed on all urinalysis samples and only positive findings are reported. The test for blood on the chemical analytic portion of urinalysis may also be positive due to hemoglobinuria and myoglobinuria and if red blood cells are present they are quantified by microscopic examination. Performed By: #### 4 6625 ####[facility] [address] [place] [address] Glenn Gudino M.D. [id number] Clarity (U) Cloudy Abnormal Clear [facility] Comment on above: Order Comment: Micro scopic examination is performed on all urinalysis samples and only positive findings are reported. The test for blood on the chemical analytic portion of urinalysis may also be positive due to hemoglobinuria and myoglobinuria and if red blood cells are present they are quantified by microscopic examination. Performed By: #### 4 6625 ####[facility] [address] [place] [address] Glenn Gudino M.D. [id number] Color (U) Yellow Normal Colorless, Yellow [facility] Comment on above: Order Comment: Micro scopic examination is performed on all urinalysis samples and only positive findings are reported. The test for blood on the chemical analytic portion of urinalysis may also be positive due to hemoglobinuria and myoglobinuria and if red blood cells are present they are quantified by microscopic examination. Performed By: #### 4 6625 ####[facility] [address] [place] [address] Glenn Gudino M.D. [id number] Glucose Ql (U) Negative Normal Negative [facility] Comment on above: Order Comment: Micro scopic examination is performed on all urinalysis samples and only positive findings are reported. The test for blood on the chemical analytic portion of urinalysis may also be positive due to hemoglobinuria and myoglobinuria and if red blood cells are present they are quantified by microscopic examination. Performed By: #### 4 6625 ####[facility] [address] [place] [address] Glenn Gudino M.D. [id number] Ketones Ql (U) Negative Normal Negative [facility] Comment on above: Order Comment: Micro scopic examination is performed on all urinalysis samples and only positive findings are reported. The test for blood on the chemical analytic portion of urinalysis may also be positive due to hemoglobinuria and myoglobinuria and if red blood cells are present they are quantified by microscopic examination. Performed By: #### 4 6625 ####[facility] [address] [place] [address] Glenn Gudino M.D. [id number] Leukocyte esterase Test strip Ql (U) Large Abnormal Negative [facility] Comment on above: Order Comment: Micro scopic examination is performed on all urinalysis samples and only positive findings are reported. The test for blood on the chemical analytic portion of urinalysis may also be positive due to hemoglobinuria and myoglobinuria and if red blood cells are present they are quantified by microscopic examination. Performed By: #### 4 6625 ####[facility] [address] [place] [address] Glenn Gudino M.D. [id number] NITRITE, URINE Negative Normal Negative [facility] Comment on above: Order Comment: Micro scopic examination is performed on all urinalysis samples and only positive findings are reported. The test for blood on the chemical analytic portion of urinalysis may also be positive due to hemoglobinuria and myoglobinuria and if red blood cells are present they are quantified by microscopic examination. Performed By: #### 4 6625 ####[facility] [address] [place] [address] Glenn Gudino M.D. [id number] pH (U) 6.5 [pH] Normal 5.0-7.0 [facility] Comment on above: Order Comment: Micro scopic examination is performed on all urinalysis samples and only positive findings are reported. The test for blood on the chemical analytic portion of urinalysis may also be positive due to hemoglobinuria and myoglobinuria and if red blood cells are present they are quantified by microscopic examination. Performed By: #### 4 6625 ####[facility] [address] [place] [address] Glenn Gudino M.D. [id number] Protein (U) [Mass/Vol] 30 mg/dL Abnormal Negative [facility] Comment on above: Order Comment: Micro scopic [...] ammonium compounds. Performed By: #### 4 6625 ####[facility] [address] [place] [address] 08653 Glenn Gudino M.D. [id number] RBC LM.HPF (Urine sed) [#/Area] 3 /[HPF] Normal 0-3 [facility] Comment on above: Order Comment: Micro scopic examination is performed on all urinalysis samples and only positive findings are reported. The test for blood on the chemical analytic portion of urinalysis may also be positive due to hemoglobinuria and myoglobinuria and if red blood cells are present they are quantified by microscopic examination. Performed By: #### 4 6625 ####[facility] [address] [place] [address] Glenn Gudino M.D. [id number] Specific gravity (U) [Rel density] 1.027 High 1.005-1.02 5 [facility] Comment on above: Order Comment: Micro scopic examination is performed on all urinalysis samples and only positive findings are reported. The test for blood on the chemical analytic portion of urinalysis may also be positive due to hemoglobinuria and myoglobinuria and if red blood cells are present they are quantified by microscopic examination. Performed By: #### 4 6625 ####[facility] [address] [place], [place] [id number] Glenn Gudino M.D. [id number] SQUAMOUS EPITHELIAL 7 /hpf High 0-4 [facility] Comment on above: Order Comment: Micro scopic examination is performed on all urinalysis samples and only positive findings are reported. The test for blood on the chemical analytic portion of urinalysis may also be positive due to hemoglobinuria and myoglobinuria and if red blood cells are present they are quantified by microscopic examination. Performed By: #### 4 6625 ####[facility] [address] [place] [address] Glenn Gudino M.D. [id number] UROBILINOGEN, URINE >=4.0 Abnormal <2.0 [facility] Comment on above: Order Comment: Micro scopic examination is performed on all urinalysis samples and only positive findings are reported. The test for blood on the chemical analytic portion of urinalysis may also be positive due to hemoglobinuria and myoglobinuria and if red blood cells are present they are quantified by microscopic examination. Performed By: #### 4 6625 ####[facility] [address] [place] [address] 76[address] Glenn Gudino M.D. [id number] WBC LM.HPF (Urine sed) [#/Area] 39 /[HPF] High 0-5 [facility] Comment on above: Order Comment: Micro scopic examination is performed on all urinalysis samples and only positive findings are reported. The test for blood on the chemical analytic portion of urinalysis may also be positive due to hemoglobinuria and myoglobinuria and if red blood cells are present they are quantified by microscopic examination. Performed By: #### 4 6625 ####[facility] [address] [place] [address] 13987 Glenn Gudino M.D. [id number] URINE AEROBIC CULTUREon 09-27 URINE AEROBIC CULTURE URINE CULTURE < 10,000 CFU/mL of normal urogenital microbiota Normal [facility] Comment on above: Performed By: #### 4 4053 ####[facility] [address] [place] [address] 16957 Glenn Gudino M.D. [id number] CALCIUM, IONIZEDon CALCIUM IONIZED 4.4 mg/dL Low 4.5-5.3 [facility] Comment on above: Performed By: #### 4 5190 ####[facility] [address] [place], [place] [id number] Glenn Gudino M.D. [id number] CBCon 10-17-2023 AUTO NRBC 0.0 % Normal [facility] Comment on above: Performed By: #### 4 [id number] ####[facility] [address] [place], [place] [id number] Glenn Gudino M.D. [id number] AUTO NRBC ABS COUNT 0.00 K/mcL Normal 0.00-0.00 [facility] Comment on above: Performed By: #### 4 [id number] ####[facility] [address] [place], [place] [id number] Glenn Gudino M.D. [id number] Erythrocyte distribution width (RBC) [Ratio] 17.7 % High 11.6-14.8 [facility] Comment on above: Performed By: #### 4 [id number] ####[facility] [address] [place] [address] Glenn Gudino M.D. [id number] Hematocrit (Bld) [Volume fraction] 28.6 % Low 36.0-46.0 [facility] Comment on above: Performed By: #### 4 [id number] ####[facility] [address] [place] [address] Glenn Gudino M.D. [id number] Hemoglobin (Bld) [Mass/Vol] 8.6 g/dL Low 12.0-16.0 [facility] Comment on above: Performed By: #### 4 [id number] ####[facility] [address] [place] [address]109 Glenn Gudino M.D. [id number] MCH (RBC) [Entitic mass] 27.3 pg Normal 26.0-34.0 [facility] Comment on above: Performed By: #### 4 [id number] ####[facility] [address] [place], [place] [id number] Glenn Gudino M.D. [id number] MCV (RBC) [Entitic vol] 90.8 fL Normal 80.0-100.0 [facility] Comment on above: Performed By: #### 4 [id number] ####[facility] [address] [place] [address] Glenn Gudino M.D. [id number] MEAN CORPUSCULAR HEMOGLOBIN CONC 30.1 g/dL Low 31.0-37.0 [facility] Comment on above: Performed By: #### 4 [id number] ####[facility] [address] [place], [place] [id number] Glenn Gudino M.D. [id number] Platelet mean volume (Bld) [Entitic vol] 9.6 fL Normal 9.4-12.4 [facility] Comment on above: Performed By: #### 4 [id number] ####[facility] [address] [place], [place] [id number] Glenn Gudino M.D. [id number] Platelets (Bld) [#/Vol] 390 10*3/uL Normal 150-400 [facility] Comment on above: Performed By: #### 4 [id number] ####[facility] [address] [place], [place] [id number] Glenn Gudino M.D. [id number] RBC (Bld) [#/Vol] 3.15 10*6/uL Low 4.00-5.20 [facility] Comment on above: Performed By: #### 4 5257 ####[facility] [address] [place] [address] Glenn Gudino M.D. [id number] WBC (Bld) [#/Vol] 14.44 10*3/uL High 4.50-11.00 [facility] Comment on above: Performed By: #### 4 5218 ####[facility] [facility] [address] [place], [place] [id number] Glenn Gudino M.D. [id number] HEPATIC FUNCTION PANELon Albumin [Mass/Vol] 2.2 g/dL Low 3.2-5.[address] [facility] Comment on above: Performed By: #### 4 5866 ####[facility] [address] [place] [address] Glenn Gudino M.D. [id number] ALP [Catalytic activity/Vol] 105 U/L Normal 40-150 [facility] Comment on above: Performed By: #### 4 5866 ####[facility] [address] [place], [place] [id number] Glenn Gudino M.D. [id number] ALT [Catalytic activity/Vol] 23 U/L Normal 0-35 U/L [facility] Comment on above: Performed By: #### 4 5866 ####[facility] [address] [place], [place] [id number] Glenn Gudino M.D. [id number] AST [Catalytic activity/Vol] 52 U/L High 0-35 U/L [facility] Comment on above: Performed By: #### 4 5866 ####[facility] [address] [place], [place] [id number] Glenn Gudino M.D. [id number] Bilirubin [Mass/Vol] 0.6 mg/dL Normal 0.0-1.3 [facility] Comment on above: Performed By: #### 4 5876 ####[facility] [address] [id number] Glenn Gudino M.D. [id number] Bilirubin.indirect [Mass/Vol] 0.2 mg/dL Normal 0.0-0.4 [facility] Comment on above: Performed By: #### 4 5866 ####[facility] [address] [place], [place] [id number] Glenn Gudino M.D. [id number] Protein [Mass/Vol] 6.6 g/dL Normal 6.0-8.[address] [facility] Comment on above: Performed By: #### 4 5866 ####[facility] [address] [place], [place] [id number] Glenn Gudino M.D. [id number] MAGNESIUM LEVELon 10-17-2023 Magnesium [Mass/Vol] 2.0 mg/dL Normal 1.6-2.4 [facility] Comment on above: Performed By: #### 4 6109 ####[facility] [address] [place], [place] [id number] Glenn Gudino M.D. [id number] PHOSPHORUSon 10-17-2023 Phosphate [Mass/Vol] 3.0 mg/dL Normal 2.8-4.1 [facility] Comment on above: Performed By: #### 4 6299 ####[facility] [address] [place], [place] [id number] Glenn Gudino M.D. [id number] PT/INRon 10-17-2023 INR Coag (PPP) [Relative time] 2.9 {INR} High 0.8-1.1 [facility] Comment on above: Order Comment: Jennifer retana the induction phase of oral anticoagulation, the INR may not reflect the anticoagulation status of the patient. Therapeutic ranges for INR's are:Most clinical situations: INR 2.0-3.0Mechanical Prosthetic Valve: INR 2.5-3.5Critical: INR >5.0 Performed By: #### 4 6391 ####[facility] [address] [place] [address] Glenn Gudino M.D. [id number] PT Coag (PPP) [Time] 30.9 s High 11.8-14.3 [facility] Comment on above: Order Comment: Jennifer retana the induction phase of oral anticoagulation, the INR may not reflect the anticoagulation status of the patient. Therapeutic ranges for INR's are:Most clinical situations: INR 2.0-3.0Mechanical Prosthetic Valve: INR 2.5-3.5Critical: INR >5.0 Performed By: #### 4 6391 ####[facility] [address] [place], [place] [id number] Glenn Gudino M.D. [id number] URINALYSISon 10-17-2023 BACTERIA, URINE Many Abnormal None Seen [facility] Comment on above: Order Comment: Micro scopic examination is performed on all urinalysis samples and only positive findings are reported. The test for blood on the chemical analytic portion of urinalysis may also be positive due to hemoglobinuria and myoglobinuria and if red blood cells are present they are quantified by microscopic examination. Performed By: #### 4 6625 ####[facility] [address] [place], [place] [id number] Glenn Gudino M.D. [id number] BILIRUBIN, URINE Negative Normal Negative [facility] Comment on above: Order Comment: Micro scopic examination is performed on all urinalysis samples and only positive findings are reported. The test for blood on the chemical analytic portion of urinalysis may also be positive due to hemoglobinuria and myoglobinuria and if red blood cells are present they are quantified by microscopic examination. Performed By: #### 4 6625 ####[facility] [address] [place] [address] Glenn Gudino M.D. [id number] BLOOD, URINE Small Abnormal Negative [facility] Comment on above: Order Comment: Micro scopic examination is performed on all urinalysis samples and only positive findings are reported. The test for blood on the chemical analytic portion of urinalysis may also be positive due to hemoglobinuria and myoglobinuria and if red blood cells are present they are quantified by microscopic examination. Performed By: #### 4 6625 ####[facility] [address] [place] [address] Glenn Gudino M.D. [id number] Clarity (U) Cloudy Abnormal Clear [facility] Comment on above: Order Comment: Micro scopic examination is performed on all urinalysis samples and only positive findings are reported. The test for blood on the chemical analytic portion of urinalysis may also be positive due to hemoglobinuria and myoglobinuria and if red blood cells are present they are quantified by microscopic examination. Performed By: #### 4 6625 ####[facility] [address] [place] [address] Glenn Gudino M.D. [id number] Color (U) Yellow Normal Colorless, Yellow [facility] Comment on above: Order Comment: Micro scopic examination is performed on all urinalysis samples and only positive findings are reported. The test for blood on the chemical analytic portion of urinalysis may also be positive due to hemoglobinuria and myoglobinuria and if red blood cells are present they are quantified by microscopic examination. Performed By: #### 4 6625 ####[facility] [address] [place] [address] Glenn Gudino M.D. [id number] Glucose Ql (U) Negative Normal Negative [facility] Comment on above: Order Comment: Micro scopic examination is performed on all urinalysis samples and only positive findings are reported. The test for blood on the chemical analytic portion of urinalysis may also be positive due to hemoglobinuria and myoglobinuria and if red blood cells are present they are quantified by microscopic examination. Performed By: #### 4 6684 ####[facility] [address] [place] [address] Glenn Gudino M.D. [id number] Hyaline casts LM Ql (Urine sed) 0-2 Normal 0-2 [facility] Comment on above: Order Comment: Micro scopic examination is performed on all urinalysis samples and only positive findings are reported. The test for blood on the chemical analytic portion of urinalysis may also be positive due to hemoglobinuria and myoglobinuria and if red blood cells are present they are quantified by microscopic examination. Performed By: #### 4 6625 ####[facility] [address] [place] [address] Glenn Gudino M.D. [id number] Ketones Ql (U) Negative Normal Negative [facility] Comment on above: Order Comment: Micro scopic examination is performed on all urinalysis samples and only positive findings are reported. The test for blood on the chemical analytic portion of urinalysis may also be positive due to hemoglobinuria and myoglobinuria and if red blood cells are present they are quantified by microscopic examination. Performed By: #### 4 6625 ####[facility] [address] [place] [address] Glenn Gudino M.D. [id number] Leukocyte esterase Test strip Ql (U) Large Abnormal Negative [facility] Comment on above: Order Comment: Micro scopic examination is performed on all urinalysis samples and only positive findings are reported. The test for blood on the chemical analytic portion of urinalysis may also be positive due to hemoglobinuria and myoglobinuria and if red blood cells are present they are quantified by microscopic examination. Performed By: #### 4 6625 ####[facility] [address] [place] [address] Glenn Gudino M.D. [id number] MUCUS, URINE Rare Normal None Seen, Rare [facility] Comment on above: Order Comment: Micro scopic examination is performed on all urinalysis samples and only positive findings are reported. The test for blood on the chemical analytic portion of urinalysis may also be positive due to hemoglobinuria and myoglobinuria and if red blood cells are present they are quantified by microscopic examination. Performed By: #### 4 6679 ####[facility] [address] [id number] Glenn Gudino M.D. [id number] NITRITE, URINE Negative Normal Negative [facility] Comment on above: Order Comment: Micro scopic examination is performed on all urinalysis samples and only positive findings are reported. The test for blood on the chemical analytic portion of urinalysis may also be positive due to hemoglobinuria and myoglobinuria and if red blood cells are present they are quantified by microscopic examination. Performed By: #### 4 6625 ####[facility] [address] [place] [address] Glenn Gudino M.D. [id number] pH (U) 6.0 [pH] Normal 5.0-7.0 [facility] Comment on above: Order Comment: Micro scopic examination is performed on all urinalysis samples and only positive findings are reported. The test for blood on the chemical analytic portion of urinalysis may also be positive due to hemoglobinuria and myoglobinuria and if red blood cells are present they are quantified by microscopic examination. Performed By: #### 4 6625 ####[facility] [address] [place] [address] Glenn Gudino M.D. [id number] Protein (U) [Mass/Vol] 30 mg/dL Abnormal Negative [facility] Comment on above: Order Comment: Micro scopic [...] ammonium compounds. Performed By: #### 4 6625 ####[facility] [address] [place], [place] [id number] Glenn Gudino M.D. [id number] RBC LM.HPF (Urine sed) [#/Area] 7 /[HPF] High 0-3 [facility] Comment on above: Order Comment: Micro scopic examination is performed on all urinalysis samples and only positive findings are reported. The test for blood on the chemical analytic portion of urinalysis may also be positive due to hemoglobinuria and myoglobinuria and if red blood cells are present they are quantified by microscopic examination. Performed By: #### 4 6625 ####[facility] [address] [place] [address] Glenn Gudino M.D. [id number] Specific gravity (U) [Rel density] 1.027 High 1.005-1.02 5 [facility] Comment on above: Order Comment: Micro scopic examination is performed on all urinalysis samples and only positive findings are reported. The test for blood on the chemical analytic portion of urinalysis may also be positive due to hemoglobinuria and myoglobinuria and if red blood cells are present they are quantified by microscopic examination. Performed By: #### 4 6625 ####[facility] [address] [place] [address] Glenn Gudino M.D. [id number] SQUAMOUS EPITHELIAL 6 /hpf High 0-4 [facility] Comment on above: Order Comment: Micro scopic examination is performed on all urinalysis samples and only positive findings are reported. The test for blood on the chemical analytic portion of urinalysis may also be positive due to hemoglobinuria and myoglobinuria and if red blood cells are present they are quantified by microscopic examination. Performed By: #### 4 6625 ####[facility] [address] [place] [address] Glenn Gudino M.D. [id number] UROBILINOGEN, URINE <2.0 Normal <2.0 [facility] Comment on above: Order Comment: Micro scopic examination is performed on all urinalysis samples and only positive findings are reported. The test for blood on the chemical analytic portion of urinalysis may also be positive due to hemoglobinuria and myoglobinuria and if red blood cells are present they are quantified by microscopic examination. Performed By: #### 4 6625 ####[facility] [address] [place] [address] Glenn Gudino M.D. [id number] WBC LM.HPF (Urine sed) [#/Area] 55 /[HPF] High 0-5 [facility] Comment on above: Order Comment: Micro scopic examination is performed on all urinalysis samples and only positive findings are reported. The test for blood on the chemical analytic portion of urinalysis may also be positive due to hemoglobinuria and myoglobinuria and if red blood cells are present they are quantified by microscopic examination. Performed By: #### 4 6625 ####[facility] [address] [place] [address] Glenn Gudino M.D. [id number] BASIC METABOLIC PANELon 05-2 -2023 Anion gap [Moles/Vol] 17 mmol/L Normal 10-20 [facility] Comment on above: Order Comment: [facility] has implemented the eGFR calculation approach that does not have a coefficient for race that conforms to the NKF-ASN Task Force Recommendations. Performed By: #### 4 6124 ####[facility] [address] [place] [address] Glenn Gudino M.D. [id number] Calcium [Mass/Vol] 7.8 mg/dL Low 8.4-10.[address] [facility] Comment on above: Order Comment: [facility] has implemented the eGFR calculation approach that does not have a coefficient for race that conforms to the NKF-ASN Task Force Recommendations. Performed By: #### 4 6124 ####[facility] [address] [place] [address] Glenn Gudino M.D. [id number] Chloride [Moles/Vol] 100 mmol/L Normal 98-108 [facility] Comment on above: Order Comment: [facility] has implemented the eGFR calculation approach that does not have a coefficient for race that conforms to the NKF-ASN Task Force Recommendations. Performed By: #### 4 6124 ####[facility] [address] [place], [place] [id number] Glenn Gudino M.D. [id number] Creatinine [Mass/Vol] 1.04 mg/dL Normal 0.60-1.10 [facility] Comment on above: Order Comment: [facility] has implemented the eGFR calculation approach that does not have a coefficient for race that conforms to the NKF-ASN Task Force Recommendations. Performed By: #### 4 6124 ####[facility] [address] [place] [address] Glenn Gudino M.D. [id number] EGFR 61 mL/min/1.73 m2 Normal >=60 [facility] Comment on above: Order Comment: [facility] has implemented the eGFR calculation approach that does not have a coefficient for race that conforms to the NKF-ASN Task Force Recommendations. Result Comment: Joi mated GFR was calculated using the 2020 CKD-EPI creatinine equation. Performed By: #### 4 6124 ####[facility] [address] [place], [place] [id number] Glenn Gudino M.D. [id number] Glucose [Mass/Vol] 73 mg/dL Normal 65-[address] [facility] Comment on above: Order Comment: [facility] has implemented the eGFR calculation approach that does not have a coefficient for race that conforms to the NKF-ASN Task Force Recommendations. Performed By: #### 4 6124 ####[facility] [address] [place], [place] [id number] Glenn Gudino M.D. [id number] HCO3 (Bld) [Moles/Vol] 20 mmol/L Low 21-32 [facility] Comment on above: Order Comment: [facility] has implemented the eGFR calculation approach that does not have a coefficient for race that conforms to the NKF-ASN Task Force Recommendations. Performed By: #### 4 6124 ####[facility] [address] [place] [address] Glenn Gudino M.D. [id number] Potassium [Moles/Vol] 3.4 mmol/L Low 3.5-5.1 [facility] Comment on above: Order Comment: [facility] has implemented the eGFR calculation approach that does not have a coefficient for race that conforms to the NKF-ASN Task Force Recommendations. Performed By: #### 4 6124 ####[facility] [address] [place] [address] Glenn Gudino M.D. [id number] Sodium [Moles/Vol] 134 mmol/L Low 135-[address] [facility] Comment on above: Order Comment: [facility] has implemented the eGFR calculation approach that does not have a coefficient for race that conforms to the NKF-ASN Task Force Recommendations. Performed By: #### 4 6124 ####[facility] [address] [place], [place] [id number] Glenn Gudino M.D. [id number] Urea nitrogen [Mass/Vol] 21 mg/dL Normal 8-25 [facility] Comment on above: Order Comment: [facility] has implemented the eGFR calculation approach that does not have a coefficient for race that conforms to the NKF-ASN Task Force Recommendations. Performed By: #### 4 6124 ####[facility] [address] [place] [address] Glenn Gudino M.D. [id number] Urea nitrogen/Creatinine [Mass ratio] 20.2 mg/mg High 10.0-20.0 [facility] Comment on above: Order Comment: [facility] has implemented the eGFR calculation approach that does not have a coefficient for race that conforms to the NKF-ASN Task Force Recommendations. Performed By: #### 4 6124 ####[facility] [address] [place] [address] Glenn Gudino M.D. [id number] CALCIUM, IONIZEDon 4 CALCIUM IONIZED 4.4 mg/dL Low 4.5-5.3 [facility] Comment on above: Performed By: #### 4 5190 ####[facility] [address] [place] [address] Glenn Gudino M.D. [id number] CBCon 10-16-2023 AUTO NRBC 0.0 % Normal [facility] Comment on above: Performed By: #### 4 5218 ####[facility] [address] [place], [place] [address] Glenn Gudino M.D. [id number] AUTO NRBC ABS COUNT 0.00 K/mcL Normal 0.00-0.00 [facility] Comment on above: Performed By: #### 4 [id number] ####[facility] [address] [place], [place] [id number] Glenn Gudino M.D. [id number] Erythrocyte distribution width (RBC) [Ratio] 17.5 % High 11.6-14.8 [facility] Comment on above: Performed By: #### 4 5218 ####[facility] [address] [place], [place] [id number] Glenn Gudino M.D. [id number] Hematocrit (Bld) [Volume fraction] 25.7 % Low 36.0-46.0 [facility] Comment on above: Performed By: #### 4 5218 ####[facility] [address] [place], [place] [address] Glenn Gudino M.D. [id number] Hemoglobin (Bld) [Mass/Vol] 8.1 g/dL Low 12.0-16.0 [facility] Comment on above: Performed By: #### 4 5218 ####[facility] [address] [place], [place] [id number] Glenn Gudino M.D. [id number] MCH (RBC) [Entitic mass] 27.7 pg Normal 26.0-34.0 [facility] Comment on above: Performed By: #### 4 [id number] ####[facility] [address] [place], [place] [id number] Glenn Gudino M.D. [id number] MCV (RBC) [Entitic vol] 88.0 fL Normal 80.0-100.0 [facility] Comment on above: Performed By: #### 4 [id number] ####[facility] [address] [place] [address] Glenn Gudino M.D. [id number] MEAN CORPUSCULAR HEMOGLOBIN CONC 31.5 g/dL Normal 31.0-37.0 [facility] Comment on above: Performed By: #### 4 5218 ####[facility] [address] [place], [place] [id number] Glenn Gudino M.D. [id number] Platelet mean volume (Bld) [Entitic vol] 9.2 fL Low 9.4-12.4 [facility] Comment on above: Performed By: #### 4 [id number] ####[facility] [address] [place], [place] [address] Glenn Gudino M.D. [id number] Platelets (Bld) [#/Vol] 441 10*3/uL High 150-400 [facility] Comment on above: Performed By: #### 4 5218 ####[facility] [address] [place], [place] [address] Glenn Gudino M.D. [id number] RBC (Bld) [#/Vol] 2.92 10*6/uL Low 4.00-5.20 [facility] Comment on above: Performed By: #### 4 5218 ####[facility] [address] [place], [place] [address] Glenn Gudino M.D. [id number] WBC (Bld) [#/Vol] 13.50 10*3/uL High 4.50-11.00 [facility] Comment on above: Performed By: #### 4 5218 ####[facility] [address] [place], [place] [address] Glenn Gudino M.D. [id number] HEPATIC FUNCTION PANELon Albumin [Mass/Vol] 2.1 g/dL Low 3.2-5.[address] [facility] Comment on above: Performed By: #### 4 5866 ####[facility] [address] [place] [address] Glenn Gudino M.D. [id number] ALP [Catalytic activity/Vol] 104 U/L Normal 40-150 [facility] Comment on above: Performed By: #### 4 5866 ####[facility] [address] [place], [place] [id number] Glenn Gudino M.D. [id number] ALT [Catalytic activity/Vol] 22 U/L Normal 0-35 U/L [facility] Comment on above: Performed By: #### 4 5866 ####[facility] [address] [place], [place] [address] Glenn Gudino M.D. [id number] AST [Catalytic activity/Vol] 51 U/L High 0-35 U/L [facility] Comment on above: Performed By: #### 4 5873 ####[facility] [address] [place], [place] [address] Glenn Gudino M.D. [id number] Bilirubin [Mass/Vol] 0.5 mg/dL Normal 0.0-1.3 [facility] Comment on above: Performed By: #### 4 5826 ####[facility] [address] [place], [place] [address] Glenn Gudino M.D. [id number] Bilirubin.indirect [Mass/Vol] 0.2 mg/dL Normal 0.0-0.4 [facility] Comment on above: Performed By: #### 4 5866 ####[facility] [address] [place], [place] [address] Glenn Gudino M.D. [id number] Protein [Mass/Vol] 6.3 g/dL Normal 6.0-8.[address] [facility] Comment on above: Performed By: #### 4 5866 ####[facility] [address] [place] [address] Glenn Gudino M.D. [id number] MAGNESIUM LEVELon 10-16-2023 Magnesium [Mass/Vol] 1.9 mg/dL Normal 1.6-2.4 [facility] Comment on above: Performed By: #### 4 6109 ####[facility] [address] [place], [place] [id number] Glenn Gudino M.D. [id number] PHOSPHORUSon 10-16-2023 Phosphate [Mass/Vol] 2.4 mg/dL Low 2.8-4.1 [facility] Comment on above: Performed By: #### 4 6299 ####[facility] [address] [place], [place] [address] Glenn Gudino M.D. [id number] PT/INRon 10-16-2023 INR Coag (PPP) [Relative time] 3.1 {INR} High 0.8-1.1 [facility] Comment on above: Order Comment: Jennifer retana the induction phase of oral anticoagulation, the INR may not reflect the anticoagulation status of the patient. Therapeutic ranges for INR's are:Most clinical situations: INR 2.0-3.0Mechanical Prosthetic Valve: INR 2.5-3.5Critical: INR >5.0 Performed By: #### 4 6391 ####[facility] [address] [place], [place] [id number] Glenn Gudino M.D. [id number] PT Coag (PPP) [Time] 32.2 s High 11.8-14.3 [facility] Comment on above: Order Comment: Jennifer retana the induction phase of oral anticoagulation, the INR may not reflect the anticoagulation status of the patient. Therapeutic ranges for INR's are:Most clinical situations: INR 2.0-3.0Mechanical Prosthetic Valve: INR 2.5-3.5Critical: INR >5.0 Performed By: #### 4 6391 ####[facility] [address] [place] [address] Glenn Gudino M.D. [id number] CALCIUM, IONIZEDon CALCIUM IONIZED 4.3 mg/dL Low 4.5-5.3 [facility] Comment on above: Performed By: #### 4 5190 ####[facility] [address] [place] [address] Glenn Gudino M.D. [id number] CBCon 10-15-2023 AUTO NRBC 0.0 % Normal [facility] Comment on above: Performed By: #### 4 [id number] ####[facility] [address] [place], [place] [id number] Glenn Gudino M.D. [id number] AUTO NRBC ABS COUNT 0.00 K/mcL Normal 0.00-0.00 [facility] Comment on above: Performed By: #### 4 [id number] ####[facility] [address] [place], [place] [id number] Glenn Gudino M.D. [id number] Erythrocyte distribution width (RBC) [Ratio] 17.7 % High 11.6-14.8 [facility] Comment on above: Performed By: #### 4 5218 ####[facility] [address] [place], [place] [id number] Glenn Gudino M.D. [id number] Hematocrit (Bld) [Volume fraction] 28.4 % Low 36.0-46.0 [facility] Comment on above: Performed By: #### 4 [id number] ####[facility] [address] [place], [place] [id number] Glenn Gudino M.D. [id number] Hemoglobin (Bld) [Mass/Vol] 8.6 g/dL Low 12.0-16.0 [facility] Comment on above: Performed By: #### 4 5218 ####[facility] [address] [place] [address] Glenn Gudino M.D. [id number] MCH (RBC) [Entitic mass] 27.5 pg Normal 26.0-34.0 [facility] Comment on above: Performed By: #### 4 5218 ####[facility] [address] [place] [address] Glenn Gudino M.D. [id number] MCV (RBC) [Entitic vol] 90.7 fL Normal 80.0-100.0 [facility] Comment on above: Performed By: #### 4 5218 ####[facility] [address] [place], [place] [id number] Glenn Gudino M.D. [id number] MEAN CORPUSCULAR HEMOGLOBIN CONC 30.3 g/dL Low 31.0-37.0 [facility] Comment on above: Performed By: #### 4 5218 ####[facility] [address] [place], [place] [id number] Glenn Gudino M.D. [id number] Platelet mean volume (Bld) [Entitic vol] 9.8 fL Normal 9.4-12.4 [facility] Comment on above: Performed By: #### 4 5218 ####[facility] [address] [place], [place] [id number] Glenn Gudino M.D. [id number] Platelets (Bld) [#/Vol] 378 10*3/uL Normal 150-400 [facility] Comment on above: Performed By: #### 4 5218 ####[facility] [address] [place] [address] Glenn Gudino M.D. [id number] RBC (Bld) [#/Vol] 3.13 10*6/uL Low 4.00-5.20 [facility] Comment on above: Performed By: #### 4 5218 ####[facility] [address] [place], [place] [id number] Glenn Gudino M.D. [id number] WBC (Bld) [#/Vol] 12.92 10*3/uL High 4.50-11.00 [facility] Comment on above: Performed By: #### 4 5218 ####[facility] [address] [place], [place] [id number] Glenn Gudino M.D. [id number] HEPATIC FUNCTION PANELon Albumin [Mass/Vol] 2.2 g/dL Low 3.2-5.[address] [facility] Comment on above: Performed By: #### 4 5866 ####[facility] [address] [place], [place] [id number] Glenn Gudino M.D. [id number] ALP [Catalytic activity/Vol] 100 U/L Normal 40-150 [facility] Comment on above: Performed By: #### 4 5866 ####[facility] [address] [place], [place] [address]Karma Gudino M.D. [id number] ALT [Catalytic activity/Vol] 28 U/L Normal 0-35 U/L [facility] Comment on above: Performed By: #### 4 5894 ####[facility] [address] [place], [place] [id number] Glenn Gudino M.D. [id number] AST [Catalytic activity/Vol] 52 U/L High 0-35 U/L [facility] Comment on above: Performed By: #### 4 5833 ####[facility] [address] [place], [place] [id number] Glenn Gudino M.D. [id number] Bilirubin [Mass/Vol] 0.5 mg/dL Normal 0.0-1.3 [facility] Comment on above: Performed By: #### 4 5866 ####[facility] [address] [place] [address] Glenn Gudino M.D. [id number] Bilirubin.indirect [Mass/Vol] 0.2 mg/dL Normal 0.0-0.4 [facility] Comment on above: Performed By: #### 4 5866 ####[facility] [address] [place] [address] Glenn Gudino M.D. [id number] Protein [Mass/Vol] 6.1 g/dL Normal 6.0-8.[address] [facility] Comment on above: Performed By: #### 4 5866 ####[facility] [address] [place], [place] [id number] Glenn Gudino M.D. [id number] MAGNESIUM LEVELon 10-15-2023 Magnesium [Mass/Vol] 1.8 mg/dL Normal 1.6-2.4 [facility] Comment on above: Performed By: #### 4 6109 ####[facility] [address] [place], [place] [id number] Glenn Gudino M.D. [id number] PHOSPHORUSon 10-15-2023 Phosphate [Mass/Vol] 2.8 mg/dL Normal 2.8-4.1 [facility] Comment on above: Performed By: #### 4 6299 ####[facility] [address] [place], [place] [id number] Glenn Gudino M.D. [id number] PT/INRon 10-15-2023 INR Coag (PPP) [Relative time] 2.9 {INR} High 0.8-1.1 [facility] Comment on above: Order Comment: Jennifer retana the induction phase of oral anticoagulation, the INR may not reflect the anticoagulation status of the patient. Therapeutic ranges for INR's are:Most clinical situations: INR 2.0-3.0Mechanical Prosthetic Valve: INR 2.5-3.5Critical: INR >5.0 Performed By: #### 4 6391 ####[facility] [address] [place] [address] Glenn Gudino M.D. [id number] PT Coag (PPP) [Time] 30.5 s High 11.8-14.3 [facility] Comment on above: Order Comment: Jennifer retana the induction phase of oral anticoagulation, the INR may not reflect the anticoagulation status of the patient. Therapeutic ranges for INR's are:Most clinical situations: INR 2.0-3.0Mechanical Prosthetic Valve: INR 2.5-3.5Critical: INR >5.0 Performed By: #### 4 6391 ####[facility] [address] [place] [address] 520[address] Glenn Gudino M.D. [id number] CALCIUM, IONIZEDon CALCIUM IONIZED 4.4 mg/dL Low 4.5-5.3 [facility] Comment on above: Performed By: #### 4 5190 ####[facility] [address] [place] [address] Glenn Gudino M.D. [id number] CBCon 10-14-2023 AUTO NRBC 0.0 % Normal [facility] Comment on above: Performed By: #### 4 5218 ####[facility] [address] [place] [address] Glenn Gudino M.D. [id number] AUTO NRBC ABS COUNT 0.00 K/mcL Normal 0.00-0.00 [facility] Comment on above: Performed By: #### 4 5218 ####[facility] [address] [place] [address] 62476 Glenn Gudino M.D. [id number] Erythrocyte distribution width (RBC) [Ratio] 17.5 % High 11.6-14.8 [facility] Comment on above: Performed By: #### 4 5218 ####[facility] [address] [place], [place] [id number] Glenn Gudino M.D. [id number] Hematocrit (Bld) [Volume fraction] 26.1 % Low 36.0-46.0 [facility] Comment on above: Performed By: #### 4 5218 ####[facility] [address] [place], [place] [address] Glenn Gudino M.D. [id number] Hemoglobin (Bld) [Mass/Vol] 8.5 g/dL Low 12.0-16.0 [facility] Comment on above: Performed By: #### 4 5218 ####[facility] [address] [place], [place] [address] Glenn Gudino M.D. [id number] MCH (RBC) [Entitic mass] 28.0 pg Normal 26.0-34.0 [facility] Comment on above: Performed By: #### 4 5218 ####[facility] [address] [place], [place] [address] Glenn Gudino M.D. [id number] MCV (RBC) [Entitic vol] 85.9 fL Normal 80.0-100.0 [facility] Comment on above: Performed By: #### 4 5218 ####[facility] [address] [place], [place] [address] Glenn Gudino M.D. [id number] MEAN CORPUSCULAR HEMOGLOBIN CONC 32.6 g/dL Normal 31.0-37.0 [facility] Comment on above: Performed By: #### 4 9418 ####[facility] [address] [id number] Glenn Gudino M.D. [id number] Platelet mean volume (Bld) [Entitic vol] 9.3 fL Low 9.4-12.4 [facility] Comment on above: Performed By: #### 4 5218 ####[facility] [address] [place], [place] [address] Glenn Gudino M.D. [id number] Platelets (Bld) [#/Vol] 365 10*3/uL Normal 150-400 [facility] Comment on above: Performed By: #### 4 5218 ####[facility] [address] [place], [place] [id number] Glenn Gudino M.D. [id number] RBC (Bld) [#/Vol] 3.04 10*6/uL Low 4.00-5.20 [facility] Comment on above: Performed By: #### 4 5218 ####[facility] [address] [place], [place] [address] Glenn Gudino M.D. [id number] WBC (Bld) [#/Vol] 15.87 10*3/uL High 4.50-11.00 [facility] Comment on above: Performed By: #### 4 5218 ####[facility] [address] [place], [place] [address]Karma Gudino M.D. [id number] CLOSTRIDIOIDES DIFFICILE MENG TINGon 10-14-2023 CLOSTRIDIOIDES DIFFICILE TESTING Not detected Normal Not Detected [facility] Comment on above: Performed By: #### 4 8543 ####[facility] [address] [place] [address] Glenn Gudino M.D. [id number] HEPATIC FUNCTION PANELon Albumin [Mass/Vol] 2.4 g/dL Low 3.2-5.[address] [facility] Comment on above: Performed By: #### 4 5866 ####[facility] [address] [place] [address] 71369 Glenn Gudino M.D. [id number] ALP [Catalytic activity/Vol] 97 U/L Normal 40-150 [facility] Comment on above: Performed By: #### 4 5866 ####[facility] [address] [place], [place] [address] Glenn Gudino M.D. [id number] ALT [Catalytic activity/Vol] 31 U/L Normal 0-35 U/L [facility] Comment on above: Performed By: #### 4 5866 ####[facility] [address] [place], [place] [address] Glenn Gudino M.D. [id number] AST [Catalytic activity/Vol] 56 U/L High 0-35 U/L [facility] Comment on above: Performed By: #### 4 5866 ####[facility] [address] [place], [place] [address] Glenn Gudino M.D. [id number] Bilirubin [Mass/Vol] 0.6 mg/dL Normal 0.0-1.3 [facility] Comment on above: Performed By: #### 4 5866 ####[facility] [address] [place], [place] [address] Glenn Gudino M.D. [id number] Bilirubin.indirect [Mass/Vol] 0.3 mg/dL Normal 0.0-0.4 [facility] Comment on above: Performed By: #### 4 5840 ####[facility] [address] [place], [place] [address] Glenn Gudino M.D. [id number] Protein [Mass/Vol] 6.3 g/dL Normal 6.0-8.[address] [facility] Comment on above: Performed By: #### 4 5874 ####[facility] [address] [place] [address] 510[address] Glenn Gudino M.D. [id number] MAGNESIUM LEVELon 10-14-2023 Magnesium [Mass/Vol] 1.9 mg/dL Normal 1.6-2.4 [facility] Comment on above: Performed By: #### 4 6109 ####[facility] [address] [place] [address] Glenn Gudino M.D. [id number] PHOSPHORUSon 10-14-2023 Phosphate [Mass/Vol] 3.0 mg/dL Normal 2.8-4.1 [facility] Comment on above: Performed By: #### 4 6299 ####[facility] [address] [place] [address] Glenn Gudino M.D. [id number] POC GLUCOSE - [facility] 024 Glucose [Mass/Vol] 105 mg/dL High 65-[address] [facility] Comment on above: Performed By: #### 4 6932 ####[facility] [address] [place] [address] [id number] [facility] Glucose [Mass/Vol] 98 mg/dL Normal 65-[address] [facility] Comment on above: Performed By: #### 4 6932 ####[facility] [address] [place] [address] [id number] [facility] Glucose [Mass/Vol] 82 mg/dL Normal 65-[address] [facility] Comment on above: Performed By: #### 4 3569 ####[facility] [address] [place] [address] [id number] [facility] Glucose [Mass/Vol] 93 mg/dL Normal 65-[address] [facility] Comment on above: Performed By: #### 4 5341 ####[facility] [address] [place] [address] [id number] [facility] Glucose [Mass/Vol] 93 mg/dL Normal 65-[address] [facility] Comment on above: Performed By: #### 4 0717 ####[facility] [address] [place] [address] [id number] [facility]Ron 10-14-2023 INR Coag (PPP) [Relative time] 2.6 {INR} High 0.8-1.1 [facility] Comment on above: Order Comment: Jennifer g the induction phase of oral anticoagulation, the INR may not reflect the anticoagulation status of the patient. Therapeutic ranges for INR's are:Most clinical situations: INR 2.0-3.0Mechanical Prosthetic Valve: INR 2.5-3.5Critical: INR >5.0 Performed By: #### 4 6391 ####[facility] [address] [place], [place] [address] Glenn Gudino M.D. [id number] PT Coag (PPP) [Time] 28.0 s High 11.8-14.3 [facility] Comment on above: Order Comment: Jennifer g the induction phase of oral anticoagulation, the INR may not reflect the anticoagulation status of the patient. Therapeutic ranges for INR's are:Most clinical situations: INR 2.0-3.0Mechanical Prosthetic Valve: INR 2.5-3.5Critical: INR >5.0 Performed By: #### 4 6391 ####[facility] [address] [place], [place] [address] Glenn Gudino M.D. [id number] BASIC METABOLIC PANELon 09-26 Anion gap [Moles/Vol] 15 mmol/L Normal 10-20 [facility] Comment on above: Order Comment: [facility] has implemented the eGFR calculation approach that does not have a coefficient for race that conforms to the NKF-ASN Task Force Recommendations. Performed By: #### 4 6124 ####[facility] [address] [place], [place] [address] Glenn Gudino M.D. [id number] Calcium [Mass/Vol] 7.8 mg/dL Low 8.4-10.[address] [facility] Comment on above: Order Comment: [facility] has implemented the eGFR calculation approach that does not have a coefficient for race that conforms to the NKF-ASN Task Force Recommendations. Performed By: #### 4 6124 ####[facility] [address] [place] [address] Glenn Gudino M.D. [id number] Chloride [Moles/Vol] 98 mmol/L Normal 98-108 [facility] Comment on above: Order Comment: [facility] has implemented the eGFR calculation approach that does not have a coefficient for race that conforms to the NKF-ASN Task Force Recommendations. Performed By: #### 4 6124 ####[facility] [address] [place], [place] [address] Glenn Gudino M.D. [id number] Creatinine [Mass/Vol] 1.14 mg/dL Normal 0.60-1.10 [facility] Comment on above: Order Comment: [facility] has implemented the eGFR calculation approach that does not have a coefficient for race that conforms to the NKF-ASN Task Force Recommendations. Performed By: #### 4 6124 ####[facility] [address] [place] [address] 834[address] Glenn Gudino M.D. [id number] EGFR 55 mL/min/1.73 m2 Low >=60 [facility] Comment on above: Order Comment: [facility] has implemented the eGFR calculation approach that does not have a coefficient for race that conforms to the NKF-ASN Task Force Recommendations. Result Comment: Joi mated GFR was calculated using the 2020 CKD-EPI creatinine equation. Performed By: #### 4 6124 ####[facility] [address] [place] [address] 68[address] Glenn Gudino M.D. [id number] Glucose [Mass/Vol] 83 mg/dL Normal 65-[address] [facility] Comment on above: Order Comment: [facility] has implemented the eGFR calculation approach that does not have a coefficient for race that conforms to the NKF-ASN Task Force Recommendations. Performed By: #### 4 6124 ####[facility] [address] [place] [address] Glenn Gudino M.D. [id number] HCO3 (Bld) [Moles/Vol] 25 mmol/L Normal 21-32 [facility] Comment on above: Order Comment: [facility] has implemented the eGFR calculation approach that does not have a coefficient for race that conforms to the NKF-ASN Task Force Recommendations. Performed By: #### 4 6124 ####[facility] [address] [place] [address] 14766 Glenn Gudino M.D. [id number] Potassium [Moles/Vol] 3.9 mmol/L Normal 3.5-5.1 [facility] Comment on above: Order Comment: [facility] has implemented the eGFR calculation approach that does not have a coefficient for race that conforms to the NKF-ASN Task Force Recommendations. Performed By: #### 4 6124 ####[facility] [address] [place] [address] 23804 Glenn Gudino M.D. [id number] Sodium [Moles/Vol] 134 mmol/L Low 135-[address] [facility] Comment on above: Order Comment: [facility] has implemented the eGFR calculation approach that does not have a coefficient for race that conforms to the NKF-ASN Task Force Recommendations. Performed By: #### 4 6124 ####[facility] [address] [place] [address] 63114 Glenn Gudino M.D. [id number] Urea nitrogen [Mass/Vol] 28 mg/dL High 8-25 [facility] Comment on above: Order Comment: [facility] has implemented the eGFR calculation approach that does not have a coefficient for race that conforms to the NKF-ASN Task Force Recommendations. Performed By: #### 4 6169 ####[facility] [address] [place], [place] [address] Glenn Gudino M.D. [id number] Urea nitrogen/Creatinine [Mass ratio] 24.6 mg/mg High 10.0-20.0 [facility] Comment on above: Order Comment: [facility] has implemented the eGFR calculation approach that does not have a coefficient for race that conforms to the NKF-ASN Task Force Recommendations. Performed By: #### 4 6124 ####[facility] [address] [place] [address] Glenn Gudino M.D. [id number] CALCIUM, IONIZEDon CALCIUM IONIZED 4.3 mg/dL Low 4.5-5.3 [facility] Comment on above: Performed By: #### 4 5190 ####[facility] [address] [place], [place] [address] Glenn Gudino M.D. [id number] CBCon 10-13-2023 AUTO NRBC 0.0 % Normal [facility] Comment on above: Performed By: #### 4 5218 ####[facility] [address] [place], [place] [address] Glenn Gudino M.D. [id number] AUTO NRBC ABS COUNT 0.00 K/mcL Normal 0.00-0.00 [facility] Comment on above: Performed By: #### 4 5218 ####[facility] [address] [place], [place] [id number] Glenn Gudino M.D. [id number] Erythrocyte distribution width (RBC) [Ratio] 17.2 % High 11.6-14.8 [facility] Comment on above: Performed By: #### 4 5218 ####[facility] [address] [place] [address] 08163 Glenn Gudino M.D. [id number] Hematocrit (Bld) [Volume fraction] 26.4 % Low 36.0-46.0 [facility] Comment on above: Performed By: #### 4 5218 ####[facility] [address] [place] [address] Glenn Gudino M.D. [id number] Hemoglobin (Bld) [Mass/Vol] 8.7 g/dL Low 12.0-16.0 [facility] Comment on above: Performed By: #### 4 5218 ####[facility] [address] [place] [address] Glenn Gudino M.D. [id number] MCH (RBC) [Entitic mass] 27.9 pg Normal 26.0-34.0 [facility] Comment on above: Performed By: #### 4 5218 ####[facility] [address] [place] [address] Glenn Gudino M.D. [id number] MCV (RBC) [Entitic vol] 84.6 fL Normal 80.0-100.0 [facility] Comment on above: Performed By: #### 4 5218 ####[facility] [address] [place], [place] [id number] Glenn Gudino M.D. [id number] MEAN CORPUSCULAR HEMOGLOBIN CONC 33.0 g/dL Normal 31.0-37.0 [facility] Comment on above: Performed By: #### 4 5218 ####[facility] [address] [place] [address] Glenn Gudino M.D. [id number] Platelet mean volume (Bld) [Entitic vol] 9.6 fL Normal 9.4-12.4 [facility] Comment on above: Performed By: #### 4 5218 ####[facility] [address] [place], [place] [address] Glenn Gudino M.D. [id number] Platelets (Bld) [#/Vol] 362 10*3/uL Normal 150-400 [facility] Comment on above: Performed By: #### 4 5218 ####[facility] [address] [place] [address] 11853 Glenn Gudino M.D. [id number] RBC (Bld) [#/Vol] 3.12 10*6/uL Low 4.00-5.20 [facility] Comment on above: Performed By: #### 4 5218 ####[facility] [address] [place], [place] [address] Glenn Gudino M.D. [id number] WBC (Bld) [#/Vol] 15.99 10*3/uL High 4.50-11.00 [facility] Comment on above: Performed By: #### 4 5218 ####[facility] [address] [place], [place] [id number] Glenn Gudino M.D. [id number] CORTISOL, Víctor 10-13-2023 CORTISOL - AM 24.1 mcg/dL Normal 5.0-25.0 [facility] Comment on above: Order Comment: Needs to be drawn at 8 am Performed By: #### 4 6853 ####[facility] [address] [place], [place] [address] Glenn Gudino M.D. [id number] HEPATIC FUNCTION PANELon Albumin [Mass/Vol] 2.4 g/dL Low 3.2-5.[address] [facility] Comment on above: Performed By: #### 4 5866 ####[facility] [address] [place] [address] 21418 Glenn Gudino M.D. [id number] ALP [Catalytic activity/Vol] 85 U/L Normal 40-150 [facility] Comment on above: Performed By: #### 4 5866 ####[facility] [address] [place], [place] [id number] Glenn Gudino M.D. [id number] ALT [Catalytic activity/Vol] 27 U/L Normal 0-35 U/L [facility] Comment on above: Performed By: #### 4 5866 ####[facility] [address] [place], [place] [address] Glenn Gudino M.D. [id number] AST [Catalytic activity/Vol] 49 U/L High 0-35 U/L [facility] Comment on above: Performed By: #### 4 5866 ####[facility] [address] [place] [address] Glenn Gudino M.D. [id number] Bilirubin [Mass/Vol] 0.5 mg/dL Normal 0.0-1.3 [facility] Comment on above: Performed By: #### 4 5866 ####[facility] [address] [place] [address] Glenn Gudino M.D. [id number] Bilirubin.indirect [Mass/Vol] 0.2 mg/dL Normal 0.0-0.4 [facility] Comment on above: Performed By: #### 4 5866 ####[facility] [address] [place], [place] [address] Glenn Gudino M.D. [id number] Protein [Mass/Vol] 6.4 g/dL Normal 6.0-8.[address] [facility] Comment on above: Performed By: #### 4 5866 ####[facility] [address] [place], [place] [id number] Glenn Gudino M.D. [id number] MAGNESIUM LEVELon 10-13-2023 Magnesium [Mass/Vol] 1.8 mg/dL Normal 1.6-2.4 [facility] Comment on above: Performed By: #### 4 6109 ####[facility] [address] [place], [place] [id number] Glenn Gudino M.D. [id number] PHOSPHORUSon 10-13-2023 Phosphate [Mass/Vol] 2.3 mg/dL Low 2.8-4.1 [facility] Comment on above: Performed By: #### 4 6299 ####[facility] [address] [place] [address] Glenn Gudino M.D. [id number] POC GLUCOSE - [facility] 024 Glucose [Mass/Vol] 92 mg/dL Normal 65-[address] [facility] Comment on above: Performed By: #### 4 6937 ####[facility] [address] [place] [address] [id number] [facility] Glucose [Mass/Vol] 98 mg/dL Normal 65-[address] [place] [address] Comment on above: Performed By: #### 4 6932 ####[facility] [address] [place] [address] [id number] [facility] Glucose [Mass/Vol] 105 mg/dL High 65-[address] [facility] Comment on above: Performed By: #### 4 2443 ####[facility] [address] [place] [address] [id number] [facility] Glucose [Mass/Vol] 107 mg/dL High 65-[address] [place] [address] Comment on above: Performed By: #### 4 6948 ####[facility] [address] [place] [address] [id number] [facility] Glucose [Mass/Vol] 95 mg/dL Normal 65-[address] [facility] Comment on above: Performed By: #### 4 2777 ####[facility] [address] [place] [address] [id number] [facility] Glucose [Mass/Vol] 99 mg/dL Normal 65-[address] [place] [address] Comment on above: Performed By: #### 4 6088 ####[facility] [address] [place] [address] [id number] [facility] PT/INRon 10-13-2023 INR Coag (PPP) [Relative time] 1.9 {INR} High 0.8-1.1 [facility] Comment on above: Order Comment: Jennifer retana the induction phase of oral anticoagulation, the INR may not reflect the anticoagulation status of the patient. Therapeutic ranges for INR's are:Most clinical situations: INR 2.0-3.0Mechanical Prosthetic Valve: INR 2.5-3.5Critical: INR >5.0 Performed By: #### 4 6391 ####[facility] [address] [place] [address] 62488 Glenn Gudino M.D. [id number] PT Coag (PPP) [Time] 22.3 s High 11.8-14.3 [facility] Comment on above: Order Comment: Jennifer retana the induction phase of oral anticoagulation, the INR may not reflect the anticoagulation status of the patient. Therapeutic ranges for INR's are:Most clinical situations: INR 2.0-3.0Mechanical Prosthetic Valve: INR 2.5-3.5Critical: INR >5.0 Result Comment: Resu lts checked. Performed By: #### 4 6391 ####[facility] [address] [place] [address] 92050 Glenn Gudino M.D. [id number] BASIC METABOLIC PANELon 05- Anion gap [Moles/Vol] 18 mmol/L Normal 10-20 [facility] Comment on above: Order Comment: [facility] has implemented the eGFR calculation approach that does not have a coefficient for race that conforms to the NKF-ASN Task Force Recommendations. Performed By: #### 4 6124 ####[facility] [address] [place] [address] 42982 Glenn Gudino M.D. [id number] Calcium [Mass/Vol] 7.7 mg/dL Low 8.4-10.[address] [facility] Comment on above: Order Comment: [facility] has implemented the eGFR calculation approach that does not have a coefficient for race that conforms to the NKF-ASN Task Force Recommendations. Performed By: #### 4 6151 ####[facility] [address] [place] [address] 09882 Glenn Gudino M.D. [id number] Chloride [Moles/Vol] 98 mmol/L Normal 98-108 [facility] Comment on above: Order Comment: [facility] has implemented the eGFR calculation approach that does not have a coefficient for race that conforms to the NKF-ASN Task Force Recommendations. Performed By: #### 4 6124 ####[facility] [address] [place] [address] 85875 Glenn Gudino M.D. [id number] Creatinine [Mass/Vol] 1.35 mg/dL High 0.60-1.10 [facility] Comment on above: Order Comment: [facility] has implemented the eGFR calculation approach that does not have a coefficient for race that conforms to the NKF-ASN Task Force Recommendations. Performed By: #### 4 6124 ####[facility] [address] [place] [address] 90108 Glenn Gudino M.D. [id number] EGFR 45 mL/min/1.73 m2 Low >=60 [facility] Comment on above: Order Comment: [facility] has implemented the eGFR calculation approach that does not have a coefficient for race that conforms to the NKF-ASN Task Force Recommendations. Result Comment: Joi mated GFR was calculated using the 2020 CKD-EPI creatinine equation. Performed By: #### 4 6124 ####[facility] [address] [place] [address] 09430 Glenn Gudino M.D. [id number] Glucose [Mass/Vol] 202 mg/dL High 65-[address] [facility] Comment on above: Order Comment: [facility] has implemented the eGFR calculation approach that does not have a coefficient for race that conforms to the NKF-ASN Task Force Recommendations. Performed By: #### 4 6124 ####[facility] [address] [place] [address] 52464 Glenn Gudino M.D. [id number] HCO3 (Bld) [Moles/Vol] 21 mmol/L Normal 21-32 [facility] Comment on above: Order Comment: [facility] has implemented the eGFR calculation approach that does not have a coefficient for race that conforms to the NKF-ASN Task Force Recommendations. Performed By: #### 4 6124 ####[facility] [address] [place], [place] [id number] Glenn Gudino M.D. [id number] Potassium [Moles/Vol] 3.9 mmol/L Normal 3.5-5.1 [facility] Comment on above: Order Comment: [facility] has implemented the eGFR calculation approach that does not have a coefficient for race that conforms to the NKF-ASN Task Force Recommendations. Performed By: #### 4 6124 ####[facility] [address] [place], [place] [id number] Glenn Gudino M.D. [id number] Sodium [Moles/Vol] 133 mmol/L Low 135-[address] [facility] Comment on above: Order Comment: [facility] has implemented the eGFR calculation approach that does not have a coefficient for race that conforms to the NKF-ASN Task Force Recommendations. Performed By: #### 4 6124 ####[facility] [address] [place] [address] 32003 Glenn Gudino M.D. [id number] Urea nitrogen [Mass/Vol] 33 mg/dL High 8-25 [facility] Comment on above: Order Comment: [facility] has implemented the eGFR calculation approach that does not have a coefficient for race that conforms to the NKF-ASN Task Force Recommendations. Performed By: #### 4 6124 ####[facility] [address] [place] [address] 51685 Glenn Gudino M.D. [id number] Urea nitrogen/Creatinine [Mass ratio] 24.4 mg/mg High 10.0-20.0 [facility] Comment on above: Order Comment: [facility] has implemented the eGFR calculation approach that does not have a coefficient for race that conforms to the NKF-ASN Task Force Recommendations. Performed By: #### 4 6124 ####[facility] [address] [place] [address] 43508 Glenn Gudino M.D. [id number] Anion gap [Moles/Vol] 14 mmol/L Normal 10-20 [facility] Comment on above: Order Comment: [facility] has implemented the eGFR calculation approach that does not have a coefficient for race that conforms to the NKF-ASN Task Force Recommendations. Performed By: #### 4 6124 ####[facility] [address] [place] [address] 66611 Glenn Gudino M.D. [id number] Calcium [Mass/Vol] 8.0 mg/dL Low 8.4-10.[address] [facility] Comment on above: Order Comment: [facility] has implemented the eGFR calculation approach that does not have a coefficient for race that conforms to the NKF-ASN Task Force Recommendations. Performed By: #### 4 6124 ####[facility] [address] [place] [address] 47371 Glenn Gudino M.D. [id number] Chloride [Moles/Vol] 100 mmol/L Normal 98-108 [facility] Comment on above: Order Comment: [facility] has implemented the eGFR calculation approach that does not have a coefficient for race that conforms to the NKF-ASN Task Force Recommendations. Performed By: #### 4 6124 ####[facility] [address] [place] [address] 07923 Glenn Gudino M.D. [id number] Creatinine [Mass/Vol] 1.24 mg/dL High 0.60-1.10 [facility] Comment on above: Order Comment: [facility] has implemented the eGFR calculation approach that does not have a coefficient for race that conforms to the NKF-ASN Task Force Recommendations. Performed By: #### 4 6124 ####[facility] [address] [place] [address] 46412 Glenn Gudino M.D. [id number] EGFR 50 mL/min/1.73 m2 Low >=60 [facility] Comment on above: Order Comment: [facility] has implemented the eGFR calculation approach that does not have a coefficient for race that conforms to the NKF-ASN Task Force Recommendations. Result Comment: Joi mated GFR was calculated using the 2020 CKD-EPI creatinine equation. Performed By: #### 4 6124 ####[facility] [address] [place] [address] 14362 Glenn Gudino M.D. [id number] Glucose [Mass/Vol] 84 mg/dL Normal 65-[address] [facility] Comment on above: Order Comment: [facility] has implemented the eGFR calculation approach that does not have a coefficient for race that conforms to the NKF-ASN Task Force Recommendations. Performed By: #### 4 6124 ####[facility] [address] [place] [address] 22602 Glenn Gudino M.D. [id number] HCO3 (Bld) [Moles/Vol] 25 mmol/L Normal 21-32 [facility] Comment on above: Order Comment: [facility] has implemented the eGFR calculation approach that does not have a coefficient for race that conforms to the NKF-ASN Task Force Recommendations. Performed By: #### 4 6124 ####[facility] [address] [place] [address] 67814 Glenn Gudino M.D. [id number] Potassium [Moles/Vol] 4.1 mmol/L Normal 3.5-5.1 [facility] Comment on above: Order Comment: [facility] has implemented the eGFR calculation approach that does not have a coefficient for race that conforms to the NKF-ASN Task Force Recommendations. Performed By: #### 4 6124 ####[facility] [address] [place] [address] 04222 Glenn Gudino M.D. [id number] Sodium [Moles/Vol] 135 mmol/L Normal 135-[address] [facility] Comment on above: Order Comment: [facility] has implemented the eGFR calculation approach that does not have a coefficient for race that conforms to the NKF-ASN Task Force Recommendations. Performed By: #### 4 6124 ####[facility] [address] [place] [address] 28417 Glenn Gudino M.D. [id number] Urea nitrogen [Mass/Vol] 33 mg/dL High 8-25 [facility] Comment on above: Order Comment: [facility] has implemented the eGFR calculation approach that does not have a coefficient for race that conforms to the NKF-ASN Task Force Recommendations. Performed By: #### 4 6124 ####[facility] [address] [place] [address] 79608 Glenn Gudino M.D. [id number] Urea nitrogen/Creatinine [Mass ratio] 26.6 mg/mg High 10.0-20.0 [facility] Comment on above: Order Comment: [facility] has implemented the eGFR calculation approach that does not have a coefficient for race that conforms to the NKF-ASN Task Force Recommendations. Performed By: #### 4 6124 ####[facility] [address] [place] [address] 25394 Glenn Gudino M.D. [id number] CALCIUM, IONIZEDon CALCIUM IONIZED 4.5 mg/dL Normal 4.5-5.3 [facility] Comment on above: Performed By: #### 4 5190 ####[facility] [address] [place] [address] 83681 Glenn Gudino M.D. [id number] CBCon 10-12-2023 AUTO NRBC 0.0 % Normal [facility] Comment on above: Performed By: #### 4 5218 ####[facility] [address] [place], [place] [id number] Glenn Gudino M.D. [id number] AUTO NRBC ABS COUNT 0.00 K/mcL Normal 0.00-0.00 [facility] Comment on above: Performed By: #### 4 [id number] ####[facility] [address] [place] [address] Glenn Gudino M.D. [id number] Erythrocyte distribution width (RBC) [Ratio] 17.1 % High 11.6-14.8 [facility] Comment on above: Performed By: #### 4 5218 ####[facility] [address] [place] [address] Glenn Gudino M.D. [id number] Hematocrit (Bld) [Volume fraction] 25.6 % Low 36.0-46.0 [facility] Comment on above: Performed By: #### 4 5218 ####[facility] [address] [place], [place] [id number] Glenn Gudino M.D. [id number] Hemoglobin (Bld) [Mass/Vol] 8.2 g/dL Low 12.0-16.0 [facility] Comment on above: Performed By: #### 4 5218 ####[facility] [address] [place], [place] [id number] Glenn Gudino M.D. [id number] MCH (RBC) [Entitic mass] 27.2 pg Normal 26.0-34.0 [facility] Comment on above: Performed By: #### 4 5218 ####[facility] [address] [place], [place] [id number] Glenn Gudino M.D. [id number] MCV (RBC) [Entitic vol] 84.8 fL Normal 80.0-100.0 [facility] Comment on above: Performed By: #### 4 5218 ####[facility] [address] [place] [address] 19812 Glenn Gudino M.D. [id number] MEAN CORPUSCULAR HEMOGLOBIN CONC 32.0 g/dL Normal 31.0-37.0 [facility] Comment on above: Performed By: #### 4 5218 ####[facility] [address] [place], [place] [id number] Glenn Gudino M.D. [id number] Platelet mean volume (Bld) [Entitic vol] 9.2 fL Low 9.4-12.4 [facility] Comment on above: Performed By: #### 4 5218 ####[facility] [address] [place], [place] [address] Glenn Gudino M.D. [id number] Platelets (Bld) [#/Vol] 286 10*3/uL Normal 150-400 [facility] Comment on above: Performed By: #### 4 5218 ####[facility] [address] [place], [place] [id number] Glenn Gudino M.D. [id number] RBC (Bld) [#/Vol] 3.02 10*6/uL Low 4.00-5.20 [facility] Comment on above: Performed By: #### 4 [id number] ####[facility] [address] [place], [place] [id number] Glenn Gudino M.D. [id number] WBC (Bld) [#/Vol] 14.32 10*3/uL High 4.50-11.00 [facility] Comment on above: Performed By: #### 4 [id number] ####[facility] [address] [place] [address] 35817 Glenn Gudino M.D. [id number] CONSULTon 10-12-2023 CONSULT Normal [facility] CONSULT Normal [facility] HEMOGLOBIN A1Con 10-12-2023 Glucose [Mass/Vol] 111 mg/dL Normal 74-[address] [facility] Comment on above: Order Comment: Irina l: 4.2% - 5.6%Increased risk for diabetes: 5.7% - 6.4%Diabetes: >= 6.5%Pediatrics: No established reference rangeEstimated average glucose: 74-114 mg/dL Performed By: #### 4 8202 ####[facility] [address] [place] [address] Glenn Gudino M.D. [id number] HbA1c (Bld) [Mass fraction] 5.5 % Normal 4.2-5.6 [facility] Comment on above: Order Comment: Irina l: 4.2% - 5.6%Increased risk for diabetes: 5.7% - 6.4%Diabetes: >= 6.5%Pediatrics: No established reference rangeEstimated average glucose: 74-114 mg/dL Performed By: #### 4 8202 ####[facility] [address] [place] [address] Glenn Gudino M.D. [id number] HEPATIC FUNCTION PANELon Albumin [Mass/Vol] 2.5 g/dL Low 3.2-5.[address] [facility] Comment on above: Performed By: #### 4 5866 ####[facility] [address] [place], [place] [id number] Glenn Gudino M.D. [id number] ALP [Catalytic activity/Vol] 75 U/L Normal 40-150 [facility] Comment on above: Performed By: #### 4 5866 ####[facility] [address] [place], [place] [id number] Glenn Gudino M.D. [id number] ALT [Catalytic activity/Vol] 27 U/L Normal 0-35 U/L [facility] Comment on above: Performed By: #### 4 5866 ####[facility] [address] [place], [place] [address] Glenn Gudino M.D. [id number] AST [Catalytic activity/Vol] 45 U/L High 0-35 U/L [facility] Comment on above: Performed By: #### 4 5866 ####[facility] [address] [place], [place] [address] Glenn Gudino M.D. [id number] Bilirubin [Mass/Vol] 0.5 mg/dL Normal 0.0-1.3 [facility] Comment on above: Performed By: #### 4 5866 ####[facility] [address] [place] [address] Glenn Gudino M.D. [id number] Bilirubin.indirect [Mass/Vol] 0.2 mg/dL Normal 0.0-0.4 [facility] Comment on above: Performed By: #### 4 5866 ####[facility] [address] [place], [place] [address] Glenn Gudino M.D. [id number] Protein [Mass/Vol] 6.2 g/dL Normal 6.0-8.[address] [facility] Comment on above: Performed By: #### 4 5866 ####[facility] [address] [place], [place] [id number] Glenn Gudino M.D. [id number] MAGNESIUM LEVELon 10-12-2023 Magnesium [Mass/Vol] 1.9 mg/dL Normal 1.6-2.4 [facility] Comment on above: Performed By: #### 4 6109 ####[facility] [address] [place], [place] [id number] Glenn Gudino M.D. [id number] PHOSPHORUSon 10-12-2023 Phosphate [Mass/Vol] 2.0 mg/dL Low 2.8-4.1 [facility] Comment on above: Performed By: #### 4 6299 ####[facility] [address] [place] [address] Glenn Gudino M.D. [id number] Phosphate [Mass/Vol] 2.1 mg/dL Low 2.8-4.1 [facility] Comment on above: Performed By: #### 4 6299 ####[facility] [address] [place] [address] Glenn Gudino M.D. [id number] POC GLUCOSE [facility] 024 Glucose [Mass/Vol] 81 mg/dL Normal 65-[address] [facility] Comment on above: Performed By: #### 4 6952 ####[facility] [address] [place] [address] [id number] [facility] Glucose [Mass/Vol] 43 mg/dL Low 65-[address] [facility] Comment on above: Performed By: #### 4 9527 ####[facility] [address] [place] [address] [id number] [facility] Glucose [Mass/Vol] 46 mg/dL Low 65-[address] [facility] Comment on above: Performed By: #### 4 9468 ####[facility] [address] [place] [address] [id number] [facility] Glucose [Mass/Vol] 34 mg/dL Off scale low 65-99 [facility] Comment on above: Order Comment: Criti cherrie result acted upon time of test. Test performed at bedside. Performed By: #### 4 3376 ####[facility] [address] [place] [address] [id number] [facility] Glucose [Mass/Vol] 32 mg/dL Off scale low 65-99 [facility] Comment on above: Order Comment: Criti cherrie result acted upon time of test. Test performed at bedside. Performed By: #### 4 9936 ####[facility] [address] [place] [address] [id number] [facility] Glucose [Mass/Vol] 25 mg/dL Off scale low 65-99 [facility] Comment on above: Order Comment: Criti cherrie result acted upon time of test. Test performed at bedside. Performed By: #### 4 7277 ####[facility] [address] [place] [address] [id number] [facility] Glucose [Mass/Vol] 34 mg/dL Off scale low 65-99 [facility] Comment on above: Order Comment: Criti cherrie result acted upon time of test. Test performed at bedside. Performed By: #### 4 5409 ####[facility] [address] [place] [address] [id number] [facility] Glucose [Mass/Vol] 29 mg/dL Off scale low 65-99 [facility] Comment on above: Order Comment: Criti cherrie result acted upon time of test. Test performed at bedside. Performed By: #### 4 6111 ####[facility] [address] [place] [address] [id number] [facility] Glucose [Mass/Vol] 105 mg/dL High 65-[address] [facility] Comment on above: Performed By: #### 4 0335 ####[facility] [address] [place] [address] [id number] [facility] Glucose [Mass/Vol] 105 mg/dL High -[address] [place] [address] Comment on above: Performed By: #### 4 3386 ####[facility] [address] [place] [address] [id number] [facility] Glucose [Mass/Vol] 99 mg/dL Normal 65-[address] [facility] Comment on above: Performed By: #### 4 3424 ####[facility] [address] [place] [address] [id number] [facility] Glucose [Mass/Vol] 97 mg/dL Normal 65-[address] [facility] Comment on above: Performed By: #### 4 9763 ####[facility] [address] [place] [address] [id number] [facility] Glucose [Mass/Vol] 101 mg/dL High 65-[address] [facility] Comment on above: Performed By: #### 4 6932 ####[facility] [address] [place] [address] [id number] [facility] Glucose [Mass/Vol] 131 mg/dL High 65-[address] [facility] Comment on above: Performed By: #### 4 6932 ####[facility] [address] [place] [address] [id number] [facility] PT/INRon 10-12-2023 INR Coag (PPP) [Relative time] 1.4 {INR} High 0.8-1.1 [facility] Comment on above: Order Comment: Jennifer retana the induction phase of oral anticoagulation, the INR may not reflect the anticoagulation status of the patient. Therapeutic ranges for INR's are:Most clinical situations: INR 2.0-3.0Mechanical Prosthetic Valve: INR 2.5-3.5Critical: INR >5.0 Performed By: #### 4 6391 ####[facility] [address] [place] [address] Glenn Gudino M.D. [id number] PT Coag (PPP) [Time] 16.9 s High 11.8-14.3 [facility] Comment on above: Order Comment: Jennifer retana the induction phase of oral anticoagulation, the INR may not reflect the anticoagulation status of the patient. Therapeutic ranges for INR's are:Most clinical situations: INR 2.0-3.0Mechanical Prosthetic Valve: INR 2.5-3.5Critical: INR >5.0 Performed By: #### 4 6391 ####[facility] [address] [place] [address] 70847 Glenn Gudino M.D. [id number] BASIC METABOLIC PANELon 09-26 Anion gap [Moles/Vol] 17 mmol/L Normal 10-20 [facility] Comment on above: Order Comment: [facility] has implemented the eGFR calculation approach that does not have a coefficient for race that conforms to the NKF-ASN Task Force Recommendations. Performed By: #### 4 6124 ####[facility] [address] [place] [address] 69913 Glenn Gudino M.D. [id number] Calcium [Mass/Vol] 7.8 mg/dL Low 8.4-10.[address] [facility] Comment on above: Order Comment: [facility] has implemented the eGFR calculation approach that does not have a coefficient for race that conforms to the NKF-ASN Task Force Recommendations. Performed By: #### 4 6124 ####[facility] [address] [place] [address] 75081 Glenn Gudino M.D. [id number] Chloride [Moles/Vol] 102 mmol/L Normal 98-108 [facility] Comment on above: Order Comment: [facility] has implemented the eGFR calculation approach that does not have a coefficient for race that conforms to the NKF-ASN Task Force Recommendations. Performed By: #### 4 6124 ####[facility] [address] [place] [address] 58771 Glenn Gudino M.D. [id number] Creatinine [Mass/Vol] 1.37 mg/dL High 0.60-1.10 [facility] Comment on above: Order Comment: [facility] has implemented the eGFR calculation approach that does not have a coefficient for race that conforms to the NKF-ASN Task Force Recommendations. Performed By: #### 4 6124 ####[facility] [address] [place] [address] 75544 Glenn Gudino M.D. [id number] EGFR 44 mL/min/1.73 m2 Low >=60 [facility] Comment on above: Order Comment: [facility] has implemented the eGFR calculation approach that does not have a coefficient for race that conforms to the NKF-ASN Task Force Recommendations. Result Comment: Joi mated GFR was calculated using the 2020 CKD-EPI creatinine equation. Performed By: #### 4 6124 ####[facility] [address] [place] [address] 30574 Glenn Gudino M.D. [id number] Glucose [Mass/Vol] 116 mg/dL High 65-[address] [facility] Comment on above: Order Comment: [facility] has implemented the eGFR calculation approach that does not have a coefficient for race that conforms to the NKF-ASN Task Force Recommendations. Performed By: #### 4 6124 ####[facility] [address] [place] [address] 87257 Glenn Gudino M.D. [id number] HCO3 (Bld) [Moles/Vol] 22 mmol/L Normal 21-32 [facility] Comment on above: Order Comment: [facility] has implemented the eGFR calculation approach that does not have a coefficient for race that conforms to the NKF-ASN Task Force Recommendations. Performed By: #### 4 6124 ####[facility] [address] [place] [address] 38701 Glenn Gudino M.D. [id number] Potassium [Moles/Vol] 3.9 mmol/L Normal 3.5-5.1 [facility] Comment on above: Order Comment: [facility] has implemented the eGFR calculation approach that does not have a coefficient for race that conforms to the NKF-ASN Task Force Recommendations. Performed By: #### 4 6124 ####[facility] [address] [place] [address] 75603 Glenn Gudino M.D. [id number] Sodium [Moles/Vol] 137 mmol/L Normal 135-[address] [facility] Comment on above: Order Comment: [facility] has implemented the eGFR calculation approach that does not have a coefficient for race that conforms to the NKF-ASN Task Force Recommendations. Performed By: #### 4 6124 ####[facility] [address] [place] [address] 67827 Glenn Gudino M.D. [id number] Urea nitrogen [Mass/Vol] 39 mg/dL High 8-25 [facility] Comment on above: Order Comment: [facility] has implemented the eGFR calculation approach that does not have a coefficient for race that conforms to the NKF-ASN Task Force Recommendations. Performed By: #### 4 6124 ####[facility] [address] [place], [place] [id number] Glenn Gudino M.D. [id number] Urea nitrogen/Creatinine [Mass ratio] 28.5 mg/mg High 10.0-20.0 [facility] Comment on above: Order Comment: [facility] has implemented the eGFR calculation approach that does not have a coefficient for race that conforms to the NKF-ASN Task Force Recommendations. Performed By: #### 4 6124 ####[facility] [address] [place], [place] [id number] Glenn Gudino M.D. [id number] CALCIUM, IONIZEDon CALCIUM IONIZED 4.5 mg/dL Normal 4.5-5.3 [facility] Comment on above: Performed By: #### 4 5190 ####[facility] [address] [place], [place] [id number] Glenn Gudino M.D. [id number] CBCon 10-11-2023 AUTO NRBC 0.0 % Normal [facility] Comment on above: Performed By: #### 4 5218 ####[facility] [address] [place], [place] [id number] Glenn Gudino M.D. [id number] AUTO NRBC ABS COUNT 0.00 K/mcL Normal 0.00-0.00 [facility] Comment on above: Performed By: #### 4 [id number] ####[facility] [address] [place], [place] [id number] Glenn Gudino M.D. [id number] Erythrocyte distribution width (RBC) [Ratio] 16.4 % High 11.6-14.8 [facility] Comment on above: Performed By: #### 4 5218 ####[facility] [address] [place], [place] [id number] Glenn Gudino M.D. [id number] Hematocrit (Bld) [Volume fraction] 23.0 % Low 36.0-46.0 [facility] Comment on above: Performed By: #### 4 5218 ####[facility] [address] [place] [address] Glenn Gudino M.D. [id number] Hemoglobin (Bld) [Mass/Vol] 7.8 g/dL Low 12.0-16.0 [facility] Comment on above: Performed By: #### 4 5218 ####[facility] [address] [place] [address] Glenn Gudino M.D. [id number] MCH (RBC) [Entitic mass] 27.7 pg Normal 26.0-34.0 [facility] Comment on above: Performed By: #### 4 [id number] ####[facility] [address] [place], [place] [id number] Glenn Gudino M.D. [id number] MCV (RBC) [Entitic vol] 81.6 fL Normal 80.0-100.0 [facility] Comment on above: Performed By: #### 4 5218 ####[facility] [address] [place] [address] Glenn Gudino M.D. [id number] MEAN CORPUSCULAR HEMOGLOBIN CONC 33.9 g/dL Normal 31.0-37.0 [facility] Comment on above: Performed By: #### 4 5218 ####[facility] [address] [place], [place] [id number] Glenn Gudino M.D. [id number] Platelet mean volume (Bld) [Entitic vol] 9.6 fL Normal 9.4-12.4 [facility] Comment on above: Performed By: #### 4 5218 ####[facility] [address] [place] [address] 34754 Glenn Gudino M.D. [id number] Platelets (Bld) [#/Vol] 270 10*3/uL Normal 150-400 [facility] Comment on above: Performed By: #### 4 5218 ####[facility] [address] [place], [place] [id number] Glenn Gudino M.D. [id number] RBC (Bld) [#/Vol] 2.82 10*6/uL Low 4.00-5.20 [facility] Comment on above: Performed By: #### 4 5218 ####[facility] [address] [place], [place] [id number] Glenn Gudino M.D. [id number] WBC (Bld) [#/Vol] 16.66 10*3/uL High 4.50-11.00 [facility] Comment on above: Performed By: #### 4 5218 ####[facility] [address] [place] [address] 40820Karam Gudino M.D. [id number] HEPATIC FUNCTION PANELon Albumin [Mass/Vol] 2.3 g/dL Low 3.2-5.[address] [facility] Comment on above: Performed By: #### 4 5866 ####[facility] [address] [place] [address] 97505Karma Gudino M.D. [id number] ALP [Catalytic activity/Vol] 62 U/L Normal 40-150 [facility] Comment on above: Performed By: #### 4 5866 ####[facility] [address] [place] [address] 95781Karma Gudino M.D. [id number] ALT [Catalytic activity/Vol] 31 U/L Normal 0-35 U/L [facility] Comment on above: Performed By: #### 4 5866 ####[facility] [address] [place], [place] [id number] Glenn Gudino M.D. [id number] AST [Catalytic activity/Vol] 51 U/L High 0-35 U/L [facility] Comment on above: Performed By: #### 4 5866 ####[facility] [address] [place] [address] Glenn Gudino M.D. [id number] Bilirubin [Mass/Vol] 0.4 mg/dL Normal 0.0-1.3 [facility] Comment on above: Performed By: #### 4 5866 ####[facility] [address] [place] [address] Glenn Gudino M.D. [id number] Bilirubin.indirect [Mass/Vol] 0.2 mg/dL Normal 0.0-0.4 [facility] Comment on above: Performed By: #### 4 5866 ####[facility] [address] [place], [place] [id number] Glenn Gudino M.D. [id number] Protein [Mass/Vol] 5.8 g/dL Low 6.0-8.[address] [facility] Comment on above: Performed By: #### 4 5866 ####[facility] [address] [place], [place] [id number] Glenn Gudino M.D. [id number] MAGNESIUM LEVELon 10-11-2023 Magnesium [Mass/Vol] 2.2 mg/dL Normal 1.6-2.4 [facility] Comment on above: Performed By: #### 4 6109 ####[facility] [address] [place], [place] [id number] Glenn Gudino M.D. [id number] OP NOTEon 10-11-2023 OP NOTE Normal [facility] PHOSPHORUSon 10-11-2023 Phosphate [Mass/Vol] 4.7 mg/dL High 2.8-4.1 [facility] Comment on above: Performed By: #### 4 6299 ####[facility] [address] [place] [address] Glenn Gudino M.D. [id number] POC GLUCOSE - [facility] 024 Glucose [Mass/Vol] 111 mg/dL High 65-[address] [place] [address] Comment on above: Performed By: #### 4 6949 ####[facility] [address] [place] [address] [id number] [facility] Glucose [Mass/Vol] 56 mg/dL Low [address] [place] [address] Comment on above: Performed By: #### 4 6932 ####[facility] [address] [place] [address] [id number] [facility] Glucose [Mass/Vol] 42 mg/dL Low [address] [place] [address] Comment on above: Performed By: #### 4 0528 ####[facility] [address] [place] [address] [id number] [facility] Glucose [Mass/Vol] 50 mg/dL Low [address] [place] [address] Comment on above: Performed By: #### 4 6980 ####[facility] [address] [place] [address] [id number] [facility] Glucose [Mass/Vol] 59 mg/dL Low -[address] [place] [address] Comment on above: Performed By: #### 4 3167 ####[facility] [address] [place] [address] [id number] [facility] Glucose [Mass/Vol] 74 mg/dL Normal [address] [place] [address] Comment on above: Performed By: #### 4 8205 ####[facility] [address] [place] [address] [id number] [facility] Glucose [Mass/Vol] 119 mg/dL High [address] [place] [address] Comment on above: Performed By: #### 4 6932 ####[facility] [address] [place] [address] [id number] [facility] Glucose [Mass/Vol] 88 mg/dL Normal 65-[address] [facility] Comment on above: Performed By: #### 4 6932 ####[facility] [address] [place] [address] [id number] [facility] Glucose [Mass/Vol] 126 mg/dL High 65-[address] [facility] Comment on above: Performed By: #### 4 6932 ####[facility] [address] [place] [address] [id number] [facility] POTASSIUM LEVELon 10-11-2023 Potassium [Moles/Vol] 4.1 mmol/L Normal 3.5-5.1 [facility] Comment on above: Performed By: #### 4 6351 ####[facility] [address] [place] [address] Glenn Gudino M.D. [id number] PT/INRon 10-11-2023 INR Coag (PPP) [Relative time] 1.1 {INR} Normal 0.8-1.1 [facility] Comment on above: Order Comment: Jennifer retana the induction phase of oral anticoagulation, the INR may not reflect the anticoagulation status of the patient. Therapeutic ranges for INR's are:Most clinical situations: INR 2.0-3.0Mechanical Prosthetic Valve: INR 2.5-3.5Critical: INR >5.0 Performed By: #### 4 6391 ####[facility] [address] [place] [address] Glenn Gudino M.D. [id number] PT Coag (PPP) [Time] 14.3 s Normal 11.8-14.3 [facility] Comment on above: Order Comment: Jennifer retana the induction phase of oral anticoagulation, the INR may not reflect the anticoagulation status of the patient. Therapeutic ranges for INR's are:Most clinical situations: INR 2.0-3.0Mechanical Prosthetic Valve: INR 2.5-3.5Critical: INR >5.0 Performed By: #### 4 6391 ####[facility] [address] [place] [address] Glenn Gudino M.D. [id number] APTTon 10-10-2023 aPTT Coag (Bld) [Time] 34 s Normal 23-34 Ri [facility] Comment on above: Order Comment: Thera peutic range for APTT's is 68 - 104 seconds Performed By: #### 4 5113 ####[facility] [address] [place] [address] Glenn Gudino M.D. [id number] BILIRUBIN, DIRECTon 10-10-19 24 Bilirubin.indirect [Mass/Vol] 1.1 mg/dL High 0.0-0.4 [facility] Comment on above: Performed By: #### 4 5145 ####[facility] [address] [place] [address] Glenn Gudino M.D. [id number] CALCIUM, IONIZEDon CALCIUM IONIZED 4.3 mg/dL Low 4.5-5.3 [facility] Comment on above: Performed By: #### 4 5190 ####[facility] [address] [place] [address] Glenn Gudino M.D. [id number] CBC WITH AUTO DIFFERENTIALon 10-10-2023 AUTO NRBC 0.0 % Normal [facility] Comment on above: Performed By: #### L [id number] ####[facility] [address] [place], [place] [id number] Glenn Gudino M.D. [id number] AUTO NRBC ABS COUNT 0.00 K/mcL Normal 0.00-0.00 [facility] Comment on above: Performed By: #### L [id number] ####[facility] [address] [place], [place] [id number] Glenn Gudino M.D. [id number] BASOPHILS ABSOLUTE COUNT 0.02 K/mcL Normal 0.00-0.30 [facility] Comment on above: Performed By: #### L [id number] ####[facility] [address] [place] [address] Glenn Gudino M.D. [id number] Basophils/100 WBC (Bld) 0.1 % Normal [facility] Comment on above: Performed By: #### L [id number] ####[facility] [address] [place] [address] Glenn Gudino M.D. [id number] Eosinophils (Bld) [#/Vol] 0.01 10*3/uL Normal 0.00-0.50 [facility] Comment on above: Performed By: #### L [id number] ####[facility] [address] [place] [address] Glenn Gudino M.D. [id number] Eosinophils/100 WBC (Bld) 0.1 % Normal [facility] Comment on above: Performed By: #### Hugh [id number] ####[facility] [address] [place] [address] Glenn Gudino M.D. [id number] Erythrocyte distribution width (RBC) [Ratio] 15.5 % High 11.6-14.8 [facility] Comment on above: Performed By: #### L [id number] ####[facility] [address] [place] [address] Glenn Gudino M.D. [id number] Hematocrit (Bld) [Volume fraction] 28.6 % Low 36.0-46.0 [facility] Comment on above: Result Comment: Repe ated verified Performed By: #### L [id number] ####[facility] [address] [place] [address] Glenn Gudino M.D. [id number] Hemoglobin (Bld) [Mass/Vol] 9.7 g/dL Low 12.0-16.0 [facility] Comment on above: Result Comment: Repe ated verified Performed By: #### L [id number] ####[facility] [address] [place] [address] Glenn Gudino M.D. [id number] IG ABSOLUTE 0.46 K/mcL High 0.00-0.30 [facility] Comment on above: Performed By: #### L [id number] ####[facility] [address] [place] [address] Glenn Gudino M.D. [id number] IG PERCENT 3.00 % Normal [facility] Comment on above: Result Comment: The IG parameter is the percentage of metamyelocytes, myelocytes and promyelocytes. An immature granulocyte count (IG) of 1% or more suggests the possibility of infection, an IG count of 3% is very likely related to an infection. Performed By: #### Hugh [id number] ####[facility] [address] [place] [address] Glenn Gudino M.D. [id number] Lymphocytes (Bld) [#/Vol] 0.44 10*3/uL Low 0.90-4.00 [facility] Comment on above: Performed By: #### L [id number] ####[facility] [address] [place] [address] Glenn Gudino M.D. [id number] Lymphocytes/100 WBC (Bld) 2.9 % Normal [facility] Comment on above: Performed By: #### Hugh [id number] ####[facility] [address] [place], [place] [id number] Glenn Gudino M.D. [id number] MCH (RBC) [Entitic mass] 28.1 pg Normal 26.0-34.0 [facility] Comment on above: Performed By: #### L [id number] ####[facility] [address] [place] [address] Glenn Gudino M.D. [id number] MCV (RBC) [Entitic vol] 82.9 fL Normal 80.0-100.0 [facility] Comment on above: Performed By: #### L [id number] ####[facility] [address] [place] [address] Glenn Gudino M.D. [id number] MEAN CORPUSCULAR HEMOGLOBIN CONC 33.9 g/dL Normal 31.0-37.0 [facility] Comment on above: Performed By: #### Hugh [id number] ####[facility] [address] [place] [address] Glenn Gudino M.D. [id number] Monocytes (Bld) [#/Vol] 0.76 10*3/uL Normal 0.30-0.90 [facility] Comment on above: Performed By: #### L [id number] ####[facility] [address] [place], [place] [id number] Glenn Gudino M.D. [id number] Monocytes/100 WBC (Bld) 5.0 % Normal [facility] Comment on above: Performed By: #### Hugh [id number] ####[facility] [address] [place], [place] [id number] Glenn Gudino M.D. [id number] NEUTROPHILS ABSOLUTE COUNT 13.47 K/mcL High 1.70-7.00 [facility] Comment on above: Performed By: #### L [id number] ####[facility] [address] [place], [place] [address] Glenn Gudino M.D. [id number] Neutrophils/100 WBC (Bld) 88.9 % Normal [facility] Comment on above: Performed By: #### L [id number] ####[facility] [address] [place] [address] 81033 Glenn Gudino M.D. [id number] Platelet mean volume (Bld) [Entitic vol] 9.6 fL Normal 9.4-12.4 [facility] Comment on above: Performed By: #### L [id number] ####[facility] [address] [place] [address] 28019 Glenn Gudino M.D. [id number] Platelets (Bld) [#/Vol] 182 10*3/uL Normal 150-400 [facility] Comment on above: Result Comment: Repe ated verified Performed By: #### L [id number] ####[facility] [address] [place], [place] [id number] Glenn Gudino M.D. [id number] RBC (Bld) [#/Vol] 3.45 10*6/uL Low 4.00-5.20 [facility] Comment on above: Performed By: #### L [id number] ####[facility] [address] [place] [address] 08089 Glenn Gudino M.D. [id number] WBC (Bld) [#/Vol] 15.16 10*3/uL High 4.50-11.00 [facility] Comment on above: Performed By: #### L [id number] ####[facility] [address] [place] [address] 27356 Glenn Gudino M.D. [id number] COMPREHENSIVE METABOLIC PANE Magdaleno 10-10-2023 Albumin [Mass/Vol] 2.2 g/dL Low 3.2-5.[address] [facility] Comment on above: Order Comment: [facility] has implemented the eGFR calculation approach that does not have a coefficient for race that conforms to the NKF-ASN Task Force Recommendations. Performed By: #### 4 6126 ####[facility] [address] [place], [place] [address] Glenn Gudino M.D. [id number] ALP [Catalytic activity/Vol] 62 U/L Normal 40-150 [facility] Comment on above: Order Comment: [facility] has implemented the eGFR calculation approach that does not have a coefficient for race that conforms to the NKF-ASN Task Force Recommendations. Performed By: #### 4 6126 ####[facility] [address] [place], [place] [id number] Glenn Gudino M.D. [id number] ALT [Catalytic activity/Vol] 31 U/L Normal 0-35 U/L [facility] Comment on above: Order Comment: [facility] has implemented the eGFR calculation approach that does not have a coefficient for race that conforms to the NKF-ASN Task Force Recommendations. Result Comment: Slig htly Hemolyzed Performed By: #### 4 6126 ####[facility] [address] [place], [place] [address] Glenn Gudino M.D. [id number] Anion gap [Moles/Vol] 22 mmol/L High 10-[address] [facility] Comment on above: Order Comment: [facility] has implemented the eGFR calculation approach that does not have a coefficient for race that conforms to the NKF-ASN Task Force Recommendations. Performed By: #### 4 6126 ####[facility] [address] [place], [place] [id number] Glenn Gudino M.D. [id number] AST [Catalytic activity/Vol] 52 U/L High 0-35 U/L [facility] Comment on above: Order Comment: [facility] has implemented the eGFR calculation approach that does not have a coefficient for race that conforms to the NKF-ASN Task Force Recommendations. Result Comment: Slig htly Hemolyzed Performed By: #### 4 6126 ####[facility] [address] [place], [place] [address] Glenn Gudino M.D. [id number] Bilirubin [Mass/Vol] 1.3 mg/dL Normal 0.0-1.3 [facility] Comment on above: Order Comment: [facility] has implemented the eGFR calculation approach that does not have a coefficient for race that conforms to the NKF-ASN Task Force Recommendations. Performed By: #### 4 6126 ####[facility] [address] [place], [place] [address] Glenn Gudino M.D. [id number] Calcium [Mass/Vol] 7.2 mg/dL Low 8.4-10.[address] [facility] Comment on above: Order Comment: [facility] has implemented the eGFR calculation approach that does not have a coefficient for race that conforms to the NKF-ASN Task Force Recommendations. Performed By: #### 4 6126 ####[facility] [address] [place], [place] [id number] Glenn Gudino M.D. [id number] Chloride [Moles/Vol] 97 mmol/L Low 98-108 [facility] Comment on above: Order Comment: [facility] has implemented the eGFR calculation approach that does not have a coefficient for race that conforms to the NKF-ASN Task Force Recommendations. Performed By: #### 4 6126 ####[facility] [address] [place], [place] [address] Glenn Gudino M.D. [id number] Creatinine [Mass/Vol] 1.32 mg/dL High 0.60-1.10 [facility] Comment on above: Order Comment: [facility] has implemented the eGFR calculation approach that does not have a coefficient for race that conforms to the NKF-ASN Task Force Recommendations. Performed By: #### 4 6126 ####[facility] [address] [place], [place] [id number] Glenn Gudino M.D. [id number] EGFR 46 mL/min/1.73 m2 Low >=60 [facility] Comment on above: Order Comment: [facility] has implemented the eGFR calculation approach that does not have a coefficient for race that conforms to the NKF-ASN Task Force Recommendations. Result Comment: Joi mated GFR was calculated using the 2020 CKD-EPI creatinine equation. Performed By: #### 4 6126 ####[facility] [address] [place] [address] 97082 Glenn Gudino M.D. [id number] Glucose [Mass/Vol] 147 mg/dL High 65-[address] [facility] Comment on above: Order Comment: [facility] has implemented the eGFR calculation approach that does not have a coefficient for race that conforms to the NKF-ASN Task Force Recommendations. Performed By: #### 4 6126 ####[facility] [address] [place] [address] 94457 Glenn Gudino M.D. [id number] HCO3 (Bld) [Moles/Vol] 19 mmol/L Low 21-32 [facility] Comment on above: Order Comment: [facility] has implemented the eGFR calculation approach that does not have a coefficient for race that conforms to the NKF-ASN Task Force Recommendations. Performed By: #### 4 6126 ####[facility] [address] [place] [address] 69967 Glenn Gudino M.D. [id number] Potassium [Moles/Vol] 4.9 mmol/L Normal 3.5-5.1 [facility] Comment on above: Order Comment: [facility] has implemented the eGFR calculation approach that does not have a coefficient for race that conforms to the NKF-ASN Task Force Recommendations. Result Comment: Slig htly Hemolyzed Performed By: #### 4 6126 ####[facility] [address] [place] [address] 58168 Glenn Gudino M.D. [id number] Protein [Mass/Vol] 5.1 g/dL Low 6.0-8.[address] [facility] Comment on above: Order Comment: [facility] has implemented the eGFR calculation approach that does not have a coefficient for race that conforms to the NKF-ASN Task Force Recommendations. Performed By: #### 4 6126 ####[facility] [address] [place] [address] 71818 Glenn Gudino M.D. [id number] Sodium [Moles/Vol] 133 mmol/L Low 135-[address] [facility] Comment on above: Order Comment: [facility] has implemented the eGFR calculation approach that does not have a coefficient for race that conforms to the NKF-ASN Task Force Recommendations. Performed By: #### 4 6126 ####[facility] [address] [place] [address] 21263 Glenn Gudino M.D. [id number] Urea nitrogen [Mass/Vol] 39 mg/dL High 8-25 [facility] Comment on above: Order Comment: [facility] has implemented the eGFR calculation approach that does not have a coefficient for race that conforms to the NKF-ASN Task Force Recommendations. Performed By: #### 4 6126 ####[facility] [address] [place] [address] 73645 Glenn Gudino M.D. [id number] Urea nitrogen/Creatinine [Mass ratio] 29.5 mg/mg High 10.0-20.0 [facility] Comment on above: Order Comment: [facility] has implemented the eGFR calculation approach that does not have a coefficient for race that conforms to the NKF-ASN Task Force Recommendations. Performed By: #### 4 6126 ####[facility] [address] [place] [address] 20751 Glenn Gudino M.D. [id number] CONSULTon 10-10-2023 CONSULT Normal [facility] CONSULT Normal [facility] FIBRINOGENon 10-10-2023 FIBRINOGEN LEVEL 347 mg/dL Normal 224-483 [facility] Comment on above: Performed By: #### 4 5616 ####[facility] [address] [place] [address] 39135 Glenn Gudino M.D. [id number] LACTIC ACID, PLASMAon 2023 LACTIC ACID, PLASMA 1.0 mmol/L Normal 0.6-2.0 [facility] Comment on above: Performed By: #### 4 6053 ####[facility] [address] [place] [address] Glenn Gudino M.D. [id number] LDHon 10-10-2023 LDH [Catalytic activity/Vol] 339 U/L High 100-250 [facility] Comment on above: Performed By: #### 4 6065 ####[facility] [address] [place] [address] Glenn Gudino M.D. [id number] MAGNESIUM LEVELon 10-10-2023 Magnesium [Mass/Vol] 2.3 mg/dL Normal 1.6-2.4 [facility] Comment on above: Performed By: #### 4 6109 ####[facility] [address] [place] [address] Glenn Gudino M.D. [id number] PHOSPHORUSon 10-10-2023 Phosphate [Mass/Vol] 7.3 mg/dL High 2.8-4.1 [facility] Comment on above: Performed By: #### 4 6299 ####[facility] [address] [place] [address] Glenn Gudino M.D. [id number] POC ARTERIAL BLOOD GAS PANEL -[facility] 10-10-2023 BASE EXCESS, ARTERIAL -4.0 Low -2.0-2.0 [facility] Comment on above: Performed By: #### 4 8776 ####[facility] [address] [place] [address] [id number] [facility] CALCIUM IONIZED 4.2 mg/dL Low 4.5-5.3 [facility] Comment on above: Performed By: #### 4 6916 ####[facility] [address] [place] [address] [id number] [facility] CARBOXYHEMOGLOBIN 1.9 % of total Hb High <=1.5 [facility] Comment on above: Result Comment: Refe rence Ranges:Suburban Non-smokers: <1.5%Smokers: 1.5-5.0%Heavy Smokers: 5.0-9.0% Performed By: #### 4 8716 ####[facility] [address] [place] [address] [id number] [facility] Chloride [Moles/Vol] 98 mmol/L Normal 98-108 [facility] Comment on above: Performed By: #### 4 8716 ####[facility] [address] [place] [address] [id number] [facility] FIO2 40 Normal [facility] Comment on above: Performed By: #### 4 7916 ####[facility] [address] [place] [address] [id number] [facility] Glucose [Mass/Vol] 142 mg/dL High 65-[address] [facility] Comment on above: Performed By: #### 4 8716 ####[facility] [address] [place] [address] [id number] [facility] HCO3 (Bld) [Moles/Vol] 21.3 mmol/L Low 22.0-26.0 [facility] Comment on above: Performed By: #### 4 8716 ####[facility] [address] [place] [address] [id number] [facility] Hematocrit (Bld) [Volume fraction] 31.0 % Low 36.0-46.0 [facility] Comment on above: Performed By: #### 4 8716 ####[facility] [address] [place] [address] [id number] [facility] Hemoglobin (Bld) [Mass/Vol] 10.1 g/dL Low 12.0-16.0 [facility] Comment on above: Performed By: #### 4 8716 ####[facility] [address] [place] [address] [id number] [facility] LACTIC ACID, WHOLE BLOOD 1.1 mmol/L Normal 0.6-2.0 [facility] Comment on above: Performed By: #### 4 8716 ####[facility] [address] [place] [address] [id number] [facility] METHEMOGLOBIN < Normal 0.0-2.0 [facility] Comment on above: Performed By: #### 4 8716 ####[facility] [address] [place] [address] [id number] [facility] O2HB 96.1 % Normal 94.0-98.0 [facility] Comment on above: Performed By: #### 4 8716 ####[facility] [address] [place] [address] [id number] [facility] Oxygen saturation in Blood 98.4 % Normal 92.0-99.0 [facility] Comment on above: Performed By: #### 4 8716 ####[facility] [address] [place] [address] [id number] [facility] PCO2 ARTERIAL 38.7 mm Hg Normal 35.0-45.0 [facility] Comment on above: Performed By: #### 4 8716 ####[facility] [address] [place] [address] [id number] [facility] PEEP RAD 5 Normal [facility] Comment on above: Performed By: #### 4 8716 ####[facility] [address] [place] [address] [id number] [facility] PH ARTERIAL 7.35 Normal 7.35-7.45 [facility] Comment on above: Performed By: #### 4 8716 ####[facility] [address] [place] [address] [id number] [facility] PO2 ARTERIAL 96 mm Hg Normal 80-100 [facility] Comment on above: Performed By: #### 4 2216 ####[facility] [address] [place] [address] [id number] [facility] Potassium [Moles/Vol] 4.6 mmol/L Normal 3.5-5.1 [facility] Comment on above: Performed By: #### 4 8716 ####[facility] [address] [place] [address] [id number] [facility] Sodium [Moles/Vol] 131 mmol/L Low 135-[address] [facility] Comment on above: Performed By: #### 4 8716 ####[facility] [address] [place] [address] [id number] [facility] POC GLUCOSE [facility] 024 Glucose [Mass/Vol] 118 mg/dL High 65-[address] [facility] Comment on above: Performed By: #### 4 6232 ####[facility] [address] [place] [address] [id number] [facility] Glucose [Mass/Vol] 53 mg/dL Low 65-[address] [facility] Comment on above: Performed By: #### 4 4067 ####[facility] [address] [place] [address] [id number] [facility] Glucose [Mass/Vol] 144 mg/dL High 65-[address] [facility] Comment on above: Performed By: #### 4 6901 ####[facility] [address] [place] [address] [id number] [facility] Glucose [Mass/Vol] 47 mg/dL Low 65-[address] [facility] Comment on above: Performed By: #### 4 9278 ####[facility] [address] [place] [address] [id number] [facility] Glucose [Mass/Vol] 87 mg/dL Normal 65-[address] [facility] Comment on above: Performed By: #### 4 3382 ####[facility] [address] [place] [address] [id number] [facility] Glucose [Mass/Vol] 167 mg/dL High 65-[address] [facility] Comment on above: Performed By: #### 4 6932 ####[facility] [address] [place] [address] [id number] [facility] Glucose [Mass/Vol] 199 mg/dL High [facility] Comment on above: Performed By: #### 4 6932 ####[facility] [address] [place] [address] [id number] [facility] Glucose [Mass/Vol] 186 mg/dL High [facility] Comment on above: Performed By: #### 4 6932 ####[facility] [address] [place] [address] [id number] [facility] Glucose [Mass/Vol] 158 mg/dL [facility] Comment on above: Performed By: #### 4 6932 ####[facility] [address] [place] [address] [id number] [facility] PT/INRon 10-10-2023 INR Coag (PPP) [Relative time] 1.5 {INR} High 0.8-1.1 [facility] Comment on above: Order Comment: Jennifer retana the induction phase of oral anticoagulation, the INR may not reflect the anticoagulation status of the patient. Therapeutic ranges for INR's are:Most clinical situations: INR 2.0-3.0Mechanical Prosthetic Valve: INR 2.5-3.5Critical: INR >5.0 Performed By: #### 4 6391 ####[facility] [address] [place] [address] Glenn Gudino M.D. [id number] PT Coag (PPP) [Time] 18.2 s High 11.8-14.3 [facility] Comment on above: Order Comment: Jennifer retana the induction phase of oral anticoagulation, the INR may not reflect the anticoagulation status of the patient. Therapeutic ranges for INR's are:Most clinical situations: INR 2.0-3.0Mechanical Prosthetic Valve: INR 2.5-3.5Critical: INR >5.0 Performed By: #### 4 6391 ####[facility] [place], [place] [address] Glenn Gudino M.D. [id number] TRIGLYCERIDESon 10-10-2023 Triglyceride [Mass/Vol] 111 mg/dL Normal 30-150 [facility] Comment on above: Performed By: #### 4 6606 ####[facility] [address] [place] [address] 89017 Glenn Gudino M.D. [id number] XR CHEST PA/APon 10-10-2023 XR CHEST PA/AP Normal [facility] Comment on above: Order Comment: Injur y/Trauma or Illness?:Illness/OtherHow long have you had these symptoms (acute/chronic)?:UnknownReason for exam?:ETT placementHistory of cancer?:uSurgeries, chemotherapy, or radiation?:uType of Exam?:UnknownAdditional signs and symptoms?:no ABORH VERIFICATIONon 024 ABO and Rh group Nom (Bld) Blood group O Rh(D) positive [facility] ABO and Rh group Nom (Bld) ABO/Rh Verification [facility] Comment on above: Result Comment: Romi ent's ABO/Rh is verified. APTTon 10-09-2023 aPTT Coag (Bld) [Time] 36 s High 23-34 [facility] Comment on above: Order Comment: Thera peutic range for APTT's is 68 - 104 seconds Performed By: #### 4 5113 #### [facility] [address] [place], [place] [address] Jaron Méndez M.D. [id number] BASIC METABOLIC PANELon 09-26 Anion gap [Moles/Vol] 14 mmol/L Normal 10-20 [facility] Comment on above: Order Comment: [facility] has implemented the eGFR calculation approach that does not have a coefficient for race that conforms to the NKF-ASN Task Force Recommendations. Performed By: #### 4 6124 #### [facility] [address] [place], [place] [address] Jaron Méndez M.D. [id number] Calcium [Mass/Vol] 8.6 mg/dL Normal 8.4-10.2 [facility] Comment on above: Order Comment: [facility] has implemented the eGFR calculation approach that does not have a coefficient for race that conforms to the NKF-ASN Task Force Recommendations. Performed By: #### 4 6124 #### LAB [address] [place] [address] Jaron Méndez M.D. [id number] Chloride [Moles/Vol] 95 mmol/L Low 98-108 [facility] Comment on above: Order Comment: [facility] has implemented the eGFR calculation approach that does not have a coefficient for race that conforms to the NKF-ASN Task Force Recommendations. Performed By: #### 4 6124 #### [address] [address] Jaron Méndez M.D. [id number] Creatinine [Mass/Vol] 1.80 mg/dL High 0.60-1.10 [facility] Comment on above: Order Comment: [facility] has implemented the eGFR calculation approach that does not have a coefficient for race that conforms to the NKF-ASN Task Force Recommendations. Performed By: #### 4 6124 #### [address] [address] Jaron Méndez M.D. [id number] EGFR 32 mL/min/1.73 m2 Low >=60 [facility] Comment on above: Order Comment: [facility] has implemented the eGFR calculation approach that does not have a coefficient for race that conforms to the NKF-ASN Task Force Recommendations. Result Comment: Joi mated GFR was calculated using the 2020 CKD-EPI creatinine equation. Performed By: #### 4 6124 #### [facility] [address] [place] [address] Jaron Méndez M.D. [id number] Glucose [Mass/Vol] 131 mg/dL High 65-99 [facility] Comment on above: Order Comment: [facility] has implemented the eGFR calculation approach that does not have a coefficient for race that conforms to the NKF-ASN Task Force Recommendations. Performed By: #### 4 6124 #### LAB [address] [place] [address] Jaron Méndez M.D. [id number] HCO3 (Bld) [Moles/Vol] 23 mmol/L Normal 21-32 [facility] Comment on above: Order Comment: [facility] has implemented the eGFR calculation approach that does not have a coefficient for race that conforms to the NKF-ASN Task Force Recommendations. Performed By: #### 4 6124 #### LAB [address] [place] [address] Jaron Méndez M.D. [id number] Potassium [Moles/Vol] 4.1 mmol/L Normal 3.5-5.1 [facility] Comment on above: Order Comment: [facility] has implemented the eGFR calculation approach that does not have a coefficient for race that conforms to the NKF-ASN Task Force Recommendations. Performed By: #### 4 6124 #### LAB [address] [place] [address] Jaron Méndez M.D. [id number] Sodium [Moles/Vol] 128 mmol/L Low 135-145 [facility] Comment on above: Order Comment: [facility] has implemented the eGFR calculation approach that does not have a coefficient for race that conforms to the NKF-ASN Task Force Recommendations. Performed By: #### 4 6124 #### LAB [address] [place] [address] Jaron Méndez M.D. [id number] Urea nitrogen [Mass/Vol] 46 mg/dL High 8-25 [facility] Comment on above: Order Comment: [facility] has implemented the eGFR calculation approach that does not have a coefficient for race that conforms to the NKF-ASN Task Force Recommendations. Performed By: #### 4 6124 #### LAB [address] [place] [address] Jaron Méndez M.D. [id number] Urea nitrogen/Creatinine [Mass ratio] 25.6 mg/mg High 10.0-20.0 [facility] Comment on above: Order Comment: [facility] has implemented the eGFR calculation approach that does not have a coefficient for race that conforms to the NKF-ASN Task Force Recommendations. Performed By: #### 4 6124 #### [facility] [address] [place] [address] Jaron Méndez M.D. [id number] CBC WITH AUTO DIFFERENTIALon 10-09-2023 BASOPHILS ABSOLUTE COUNT 0.01 K/mcL Normal 0.00-0.30 [facility] Comment on above: Performed By: #### 4 6391 #### [facility] [address] [place] [address] Jaron Méndez M.D. [id number] Basophils/100 WBC (Bld) 0.0 % Normal [facility] Comment on above: Performed By: #### 4 6391 #### [facility] [address] [place] [address] Jaron Méndez M.D. [id number] Eosinophils (Bld) [#/Vol] 0.00 10*3/uL Normal 0.00-0.50 [facility] Comment on above: Performed By: #### 4 6391 #### [facility] [address] [place], [place] [address] Jaron Méndez M.D. [id number] Eosinophils/100 WBC (Bld) 0.0 % [facility] Comment on above: Performed By: #### 4 6391 #### [facility] [address] [place], [place] [address] Jaron Méndez M.D. [id number] Erythrocyte distribution width (RBC) [Ratio] 16.3 % High 11.6-14.8 [facility] Comment on above: Performed By: #### 4 6391 #### [facility] [address] [place], [place] [address] Jaron Méndez M.D. [id number] Hematocrit (Bld) [Volume fraction] 22.3 % Low 36.0-46.0 [facility] Comment on above: Performed By: #### 4 6391 #### [facility] [address] [place], [place] [address] Jaron Méndez M.D. [id number] Hemoglobin (Bld) [Mass/Vol] 7.2 g/dL Low 12.0-16.0 [facility] Comment on above: Performed By: #### 4 6391 #### SH [place] [address] Jaron Méndez M.D. [id number] IG ABSOLUTE 0.33 K/mcL High 0.00-0.30 [facility] Comment on above: Performed By: #### 4 6391 #### [facility] [place] [address] Jaron Méndez M.D. [id number] IG PERCENT 1.40 % Normal [facility] Comment on above: Result Comment: The IG parameter is the percentage of metamyelocytes, myelocytes and promyelocytes. An immature granulocyte count (IG) of 1% or more suggests the possibility of infection, an IG count of 3% is very likely related to an infection. Performed By: #### 4 6391 #### [facility] [place] [address] Jaron Méndez M.D. [id number] Lymphocytes (Bld) [#/Vol] 1.27 10*3/uL Normal 0.90-4.00 [facility] Comment on above: Performed By: #### 4 6391 #### SH [place] [address] Jaron Méndez M.D. [id number] Lymphocytes/100 WBC (Bld) 5.6 % Normal [facility] Comment on above: Performed By: #### 4 6391 #### [facility] [place] [address] Jaron Méndez M.D. [id number] MCH (RBC) [Entitic mass] 27.7 pg Normal 26.0-34.0 [facility] Comment on above: Performed By: #### 4 6391 #### SH [place] [address] Jaron Méndez M.D. [id number] MCV (RBC) [Entitic vol] 85.8 fL Normal 80.0-100.0 [facility] Comment on above: Performed By: #### 4 6391 #### [facility] [address] [place] [address] Jaron Méndez M.D. [id number] MEAN CORPUSCULAR HEMOGLOBIN CONC 32.3 g/dL Normal 31.0-37.0 [facility] Comment on above: Performed By: #### 4 6391 #### [facility] [address] [place] [address] Jaron Méndez M.D. [id number] Monocytes (Bld) [#/Vol] 1.96 10*3/uL High 0.30-0.90 [facility] Comment on above: Performed By: #### 4 6391 #### [facility] [address] [place] [address] Jaron Méndez M.D. [id number] Monocytes/100 WBC (Bld) 8.6 % Normal [facility] Comment on above: Performed By: #### 4 6391 #### [facility] [address] [place], [place] [address] Jaron Méndez M.D. [id number] NEUTROPHILS ABSOLUTE COUNT 19.22 K/mcL High 1.70-7.00 [facility] Comment on above: Performed By: #### 4 6391 #### [facility] [address] [place] [address] Jaron Méndez M.D. [id number] Neutrophils/100 WBC (Bld) 84.4 % Normal [facility] Comment on above: Performed By: #### 4 6391 #### [facility] [address] [place] [address] Jaron Méndez M.D. [id number] Platelet mean volume (Bld) [Entitic vol] 9.6 fL Normal 9.4-12.4 [facility] Comment on above: Performed By: #### 4 6391 #### [facility] [address] [place], [place] [address] Jaron Méndez M.D. [id number] Platelets (Bld) [#/Vol] 389 10*3/uL Normal 150-400 [facility] Comment on above: Performed By: #### 4 6391 #### [facility] [address] [place], [place] [address] Jaron Méndez M.D. [id number] RBC (Bld) [#/Vol] 2.60 10*6/uL Low 4.00-5.20 [facility] Comment on above: Performed By: #### 4 6391 #### [facility] [address] [place] [address] Jaron Méndez M.D. [id number] WBC (Bld) [#/Vol] 22.79 10*3/uL High 4.50-11.00 [facility] Comment on above: Performed By: #### 4 6391 #### [facility] [address] [place] [address] Jaron Méndez M.D. [id number] COVID-19/INFLUENZA A,B MOLEC ULARo 10-09-2023 SARS-CoV-2 (COVID-19) Ab IA Ql INFLUENZA A (CEPHEID) Not Detected INFLUENZA B (CEPHEID) Not Detected SARS-COV-2 (CEPHEID) Not Detected This test was performed under the FDA's Emergency Use Authorization (EUA). Testing was performed using the Xpert Xpress SARS-CoV-2/Flu/RSV plus RT-PCR Cepheid assay on the [employer] Xpress System. This test has not been approved for use in asymptomatic patients and its performance in this patient population has not been evaluated. Negative results do not rule out the presence of SARS-CoV-2/COVID-19. Fact sheets for this EUA can be found at the following links: For Healthcare Providers: https://www.fda.gov/media/ 068100/download For Patients: https://www.fda.gov/media/ 954981/download [facility] Comment on above: Performed By: #### L [id number] #### [facility] [address] [place] [address] Jaron Méndez M.D. [id number] CT ABDOMEN PELVIS WITHOUT CO NTRASTon 10-09-2023 [...] on MonOctober 09, 2023 7:43:05 PM EDT Normal [facility] Comment on above: Order Comment: Jennifer retana the induction phase of oral anticoagulation, the INR may not reflect the anticoagulation status of the patient. Therapeutic ranges for INR's are: Most clinical situations: INR 2.0-3.0 Mechanical Prosthetic Valve: INR 2.5-3.5 Critical: INR >5.0 CT ANGIOGRAM CHEST ABDOMEN P VIS 10-09-2023 CT ANGIOGRAM CHEST ABDOMEN PELVIS EXAMINATION: [...] on MonOctober 09, 2023 9:59:46 PM EDT [facility] Comment on above: Order Comment: Jennifer retana the induction phase of oral anticoagulation, the INR may not reflect the anticoagulation status of the patient. Therapeutic ranges for INR's are: Most clinical situations: INR 2.0-3.0 Mechanical Prosthetic Valve: INR 2.5-3.5 Critical: INR >5.0 CT CHEST LOW DOSE LUNG STALINE QUETA - LCSNey 10-09-2023 CT CHEST LOW DOSE LUNG SCREENING [...] 10, 2023 1:59:01 PM EDT Normal [facility] Comment on above: Order Comment: Injur y/Trauma or Illness?:Illness/Other How long have you had these symptoms (acute/chronic)?:Chronic Reason for exam?:current smoker, 39 pack yrs, History of deep venous thrombosis, Factor V Leiden mutation (HCC), Lung nodule seen on imaging study, Screening for malignant neoplasm of respiratory organ Type of Exam?:Initial Additional signs and symptoms?:. ED Prov Noteon 10-09-2023 ED Prov Note Normal [facility] ED Prov Note ED PROVIDER NOTE [facility] NAME: Scott Obregon AGE: 63 y.o. : 1960 VISIT DATE: 10/09/2023 CSN: [id number] PCP: Ying Quispe DO Chief Complaint Patient [...] Skin: Negative (more content not included)... Normal [facility] H AND Ney 10-09-2023 H AND P Normal [facility] HEPATIC FUNCTION PANELon Albumin [Mass/Vol] 2.3 g/dL Low 3.2-5.2 [facility] Comment on above: Performed By: #### 4 5866 #### [facility] [address] [place], [place] [address] Jaron Méndez M.D. [id number] ALP [Catalytic activity/Vol] 70 U/L Normal 40-150 [facility] Comment on above: Performed By: #### 4 5866 #### [facility] [address] [place] [address] Jaron Méndez M.D. [id number] ALT [Catalytic activity/Vol] 46 U/L Normal 14-65 [facility] Comment on above: Performed By: #### 4 5866 #### [facility] [address] [place], [place] [address] Jaron Méndez M.D. [id number] AST [Catalytic activity/Vol] 55 U/L High 0-35 U/L [facility] Comment on above: Performed By: #### 4 5866 #### [facility] [address] [place] [address] Jaron Méndez M.D. [id number] Bilirubin [Mass/Vol] 0.6 mg/dL Normal 0.0-1.3 [facility] Comment on above: Performed By: #### 4 5866 #### [facility] [address] [place], [place] [address] Jaron Méndez M.D. [id number] Bilirubin.indirect [Mass/Vol] 0.3 mg/dL Normal 0.0-0.4 [facility] Comment on above: Performed By: #### 4 5866 #### [facility] [address] [place] [address] Jaron Médnez M.D. [id number] Protein [Mass/Vol] 7.2 g/dL Normal 6.0-8.0 [facility] Comment on above: Performed By: #### 4 5866 #### LAB [address] [place] [address] Jaron Méndez M.D. [id number] MORPHOLOGYon 10-09-2023 OVAL SCAN Few Normal [facility] Comment on above: Performed By: #### 4 6391 #### LAB [address] [place] [address] Jaron Méndez M.D. [id number] PLATELET ESTIMATE Normal Normal [facility] Comment on above: Performed By: #### 4 6391 #### [facility] [address] [place] [address] Jaron Méndez M.D. [id number] RBC MORPH SCAN See Comment Normal [facility] Comment on above: Result Comment: RBC Indices confirmed with manual peripheral smear review. Performed By: #### 4 6391 #### [facility] [address] [place] [address] Jaron Méndez M.D. [id number] MR LUMBAR SPINE WITHOUT CONT [facility] 10-09-2023 MR LUMBAR SPINE WITHOUT CONTRAST EXAMINATION: [...] on MonOctober 10, 2023 9:08:55 AM EDT [facility] Comment on above: Order Comment: Injur y/Trauma or Illness?:Illness/Other How long have you had these symptoms (acute/chronic)?:Acute Reason for exam?:lbp Type of Exam?:Initial Additional signs and symptoms?:none POC ABG SURG - RALSon 2023 BASE EXCESS, ARTERIAL ISTAT -6 Low -2-2 [facility] Comment on above: Order Comment: Criti cherrie result acted upon time of test. Test performed at bedside. Performed By: #### 4 [id number] ####[facility] [address] [place] [address] [id number] [facility] Glucose [Mass/Vol] 174 mg/dL High 65-[address] [facility] Comment on above: Order Comment: Criti cherrie result acted upon time of test. Test performed at bedside. Performed By: #### 4 [id number] ####[facility] [address] [place] [address] [id number] [facility] HCO3 (Bld) [Moles/Vol] 19.6 mmol/L Low 22.0-26.0 [facility] Comment on above: Order Comment: Criti cherrie result acted upon time of test. Test performed at bedside. Performed By: #### 4 [id number] ####[facility] [address] [place] [address] [id number] [facility] Hematocrit (Bld) [Volume fraction] 17 % Low 36-46 [facility] Comment on above: Order Comment: Criti cherrie result acted upon time of test. Test performed at bedside. Performed By: #### 4 [id number] ####[facility] [address] [place] [address] [id number] [facility] Hemoglobin (Bld) [Mass/Vol] 5.8 g/dL Off scale low 12.0-16.0 [facility] Comment on above: Order Comment: Criti cherrie result acted upon time of test. Test performed at bedside. Performed By: #### 4 [id number] ####[facility] [address] [place] [address] [id number] [facility] Oxygen saturation in Blood 100.0 % High 92.0-99.0 [facility] Comment on above: Order Comment: Criti cherrie result acted upon time of test. Test performed at bedside. Performed By: #### 4 [id number] ####[facility] [address] [place] [address] [id number] [facility] PCO2 ARTERIAL 38.7 mm Hg Normal 35.0-45.0 [facility] Comment on above: Order Comment: Criti cherrie result acted upon time of test. Test performed at bedside. Performed By: #### 4 [id number] ####[facility] [address] [place] [address] [id number] [facility] PH ARTERIAL 7.31 Low 7.35-7.45 [facility] Comment on above: Order Comment: Criti cherrie result acted upon time of test. Test performed at bedside. Performed By: #### 4 [id number] ####[facility] [address] [place] [address] [id number] [facility] PO2 ARTERIAL 387 mm Hg High 80-100 [facility] Comment on above: Order Comment: Criti cherrie result acted upon time of test. Test performed at bedside. Performed By: #### 4 [id number] ####[facility] [address] [place] [address] [id number] [facility] POC IONIZED CALCIUM 3.6 mg/dL Low 4.5-5.3 [facility] Comment on above: Order Comment: Criti cherrie result acted upon time of test. Test performed at bedside. Performed By: #### 4 [id number] ####[facility] [address] [place] [address] [id number] [facility] Potassium [Moles/Vol] 4.5 mmol/L Normal 3.5-5.1 [facility] Comment on above: Order Comment: Criti cherrie result acted upon time of test. Test performed at bedside. Performed By: #### 4 [id number] ####[facility] [address] [place] [address] [id number] [facility] Sodium [Moles/Vol] 130 mmol/L Low 135-[address] [facility] Comment on above: Order Comment: Criti cherrie result acted upon time of test. Test performed at bedside. Performed By: #### 4 [id number] ####[facility] [address] [place] [address] [id number] [facility] BASE EXCESS, ARTERIAL ISTAT -7 Low -2-2 [facility] Comment on above: Performed By: #### 4 [id number] ####[facility] [address] [place] [address] [id number] [facility] Glucose [Mass/Vol] 189 mg/dL High 65-[address] [facility] Comment on above: Performed By: #### 4 [id number] ####[facility] [address] [place] [address] [id number] [facility] HCO3 (Bld) [Moles/Vol] 18.8 mmol/L Low 22.0-26.0 [facility] Comment on above: Performed By: #### 4 [id number] ####[facility] [address] [place] [address] [id number] [facility] PCO2 ARTERIAL 39.9 mm Hg Normal 35.0-45.0 [facility] Comment on above: Performed By: #### 4 [id number] ####[facility] [address] [place] [address] [id number] [facility] PH ARTERIAL 7.28 Low 7.35-7.45 [facility] Comment on above: Performed By: #### 4 0010 ####[facility] [address] [place] [address] [id number] [facility] PO2 ARTERIAL > High 80-100 [facility] Comment on above: Performed By: #### 4 4617 ####[facility] [address] [place] [address] [id number] [facility] POC HCT < Low 36-46 [facility] Comment on above: Performed By: #### 4 [id number] ####[facility] [address] [place] [address] [id number] [facility] POC IONIZED CALCIUM 3.8 mg/dL Low 4.5-5.3 [facility] Comment on above: Performed By: #### 4 [id number] ####[facility] [address] [place] [address] [id number] [facility] Potassium [Moles/Vol] 4.1 mmol/L Normal 3.5-5.1 [facility] Comment on above: Performed By: #### 4 [id number] ####[facility] [address] [place] [address] [id number] [facility] Sodium [Moles/Vol] 130 mmol/L Low 135-[address] [facility] Comment on above: Performed By: #### 4 [id number] ####[facility] [address] [place] [address] [id number] [facility] POC ACTIVATED CLOTTING TIME - [facility] 10-09-2023 POC ACT CELITE 246 seconds Normal [facility] Comment on above: Performed By: #### 4 [id number] ####[facility] [address] [place] [address] [id number] [facility] POC VBG LAB(EPOC) - [facility] 0 10-09-2023 BASE EXCESS, VENOUS -7.0 Low -2.0-2.0 [facility] Comment on above: Order Comment: [facility] has implemented the eGFR calculation approach that does not have a coefficient for race that conforms to the NKF-ASN Task Force Recommendations. Performed By: #### P [id number] ####[facility] [address] [place] [address] Glenn Gudino M.D. [id number] CALCIUM IONIZED 3.9 mg/dL Low 4.5-5.3 [facility] Comment on above: Order Comment: [facility] has implemented the eGFR calculation approach that does not have a coefficient for race that conforms to the NKF-ASN Task Force Recommendations. Performed By: #### P [id number] ####[facility] [address] [place] [address] 1984[address] Glenn Gudino M.D. [id number] Chloride [Moles/Vol] 102 mmol/L Normal 98-108 [facility] Comment on above: Order Comment: [facility] has implemented the eGFR calculation approach that does not have a coefficient for race that conforms to the NKF-ASN Task Force Recommendations. Performed By: #### P [id number] ####[facility] [address] [place], [place] [id number] Glenn Gudino M.D. [id number] CO2 [Moles/Vol] 18 mmol/L Low 21-32 [facility] Comment on above: Order Comment: [facility] has implemented the eGFR calculation approach that does not have a coefficient for race that conforms to the NKF-ASN Task Force Recommendations. Performed By: #### P [id number] ####[facility] [address] [place] [address] 236[address] Glenn Gudino M.D. [id number] Creatinine [Mass/Vol] 1.87 mg/dL High 0.60-1.20 [facility] Comment on above: Order Comment: [facility] has implemented the eGFR calculation approach that does not have a coefficient for race that conforms to the NKF-ASN Task Force Recommendations. Performed By: #### P [id number] ####[facility] [address] [place], [place] [id number] Glenn Gudino M.D. [id number] Glucose [Mass/Vol] 119 mg/dL High 65-[address] [facility] Comment on above: Order Comment: [facility] has implemented the eGFR calculation approach that does not have a coefficient for race that conforms to the NKF-ASN Task Force Recommendations. Performed By: #### P [id number] ####[facility] [address] [place] [address] Glenn Gudino M.D. [id number] Hematocrit (Bld) [Volume fraction] 24 % Low 36-46 [facility] Comment on above: Order Comment: [facility] has implemented the eGFR calculation approach that does not have a coefficient for race that conforms to the NKF-ASN Task Force Recommendations. Performed By: #### P [id number] ####[facility] [address] [place] [address]809 Glenn Gudino M.D. [id number] HEMOGLOBIN, CALCULATED 8.1 g/dL Low 12.0-16.0 [facility] Comment on above: Order Comment: [facility] has implemented the eGFR calculation approach that does not have a coefficient for race that conforms to the NKF-ASN Task Force Recommendations. Performed By: #### P [id number] ####[facility] [address] [place] [address] Glenn Gudino M.D. [id number] Oxygen saturation in Blood 80.9 % High 40.0-70.0 [facility] Comment on above: Order Comment: [facility] has implemented the eGFR calculation approach that does not have a coefficient for race that conforms to the NKF-ASN Task Force Recommendations. Performed By: #### P [id number] ####[facility] [address] [place] [address] 328[address] Glenn Gudino M.D. [id number] PCO2 VENOUS 32.0 mm Hg Low 41.0-51.0 [facility] Comment on above: Order Comment: [facility] has implemented the eGFR calculation approach that does not have a coefficient for race that conforms to the NKF-ASN Task Force Recommendations. Performed By: #### P [id number] ####[facility] [address] [place] [address] Glenn Gudino M.D. [id number] PH VENOUS 7.35 Normal 7.32-7.42 [facility] Comment on above: Order Comment: [facility] has implemented the eGFR calculation approach that does not have a coefficient for race that conforms to the NKF-ASN Task Force Recommendations. Performed By: #### P [id number] ####[facility] [address] [place] [address] Glenn Gudino M.D. [id number] PO2 VENOUS 47 mm Hg High 25-40 [facility] Comment on above: Order Comment: [facility] has implemented the eGFR calculation approach that does not have a coefficient for race that conforms to the NKF-ASN Task Force Recommendations. Performed By: #### P [id number] ####[facility] [address] [place] [address] Glenn Gudino M.D. [id number] POC GFR 30 mL/min/1.73 m2 Low >=60 [facility] Comment on above: Order Comment: [facility] has implemented the eGFR calculation approach that does not have a coefficient for race that conforms to the NKF-ASN Task Force Recommendations. Result Comment: Joi mated GFR was calculated using the 2020 CKD-EPI creatinine equation. Performed By: #### P [id number] ####[facility] [address] [place] [address] Glenn Gudino M.D. [id number] POC LACTATE 2.8 mmol/L High 0.6-2.0 [facility] Comment on above: Order Comment: [facility] has implemented the eGFR calculation approach that does not have a coefficient for race that conforms to the NKF-ASN Task Force Recommendations. Performed By: #### P [id number] ####[facility] [address] [place] [address] Glenn Gudino M.D. [id number] Potassium [Moles/Vol] 4.4 mmol/L Normal 3.5-5.1 [facility] Comment on above: Order Comment: [facility] has implemented the eGFR calculation approach that does not have a coefficient for race that conforms to the NKF-ASN Task Force Recommendations. Performed By: #### P [id number] ####[facility] [address] [place] [address] Glenn Gudino M.D. [id number] Sodium [Moles/Vol] 130 mmol/L Low 135-[address] [facility] Comment on above: Order Comment: [facility] has implemented the eGFR calculation approach that does not have a coefficient for race that conforms to the NKF-ASN Task Force Recommendations. Performed By: #### P [id number] ####[facility] [address] [place] [address] 715[address] Glenn Gudino M.D. [id number] Urea nitrogen [Mass/Vol] 47 mg/dL High 8-25 [facility] Comment on above: Order Comment: [facility] has implemented the eGFR calculation approach that does not have a coefficient for race that conforms to the NKF-ASN Task Force Recommendations. Performed By: #### P [id number] ####[facility] [address] [place] [address] Glenn Gudino M.D. [id number] PT/INRon 10-09-2023 INR Coag (PPP) [Relative time] 1.4 {INR} High 0.8-1.1 [facility] Comment on above: Order Comment: Jennifer retana the induction phase of oral anticoagulation, the INR may not reflect the anticoagulation status of the patient. Therapeutic ranges for INR's are:Most clinical situations: INR 2.0-3.0Mechanical Prosthetic Valve: INR 2.5-3.5Critical: INR >5.0 Performed By: #### 4 [id number] ####[facility] [address] [place] [address] 57[address] Glenn Gudino M.D. [id number] PT Coag (PPP) [Time] 17.3 s High 11.8-14.3 [facility] Comment on above: Order Comment: Jennifer retana the induction phase of oral anticoagulation, the INR may not reflect the anticoagulation status of the patient. Therapeutic ranges for INR's are:Most clinical situations: INR 2.0-3.0Mechanical Prosthetic Valve: INR 2.5-3.5Critical: INR >5.0 Performed By: #### 4 [id number] ####[facility] [address] [place] [address] 332[address] Glenn Gudino M.D. [id number] INR Coag (PPP) [Relative time] 1.3 {INR} High 0.8-1.1 [facility] Comment on above: Order Comment: Jennifer retana the induction phase of oral anticoagulation, the INR may not reflect the anticoagulation status of the patient. Therapeutic ranges for INR's are: Most clinical situations: INR 2.0-3.0 Mechanical Prosthetic Valve: INR 2.5-3.5 Critical: INR >5.0 Performed By: #### 4 [id number] #### [facility] [address] [place] [address] 24779 Jaron Méndez M.D. [id number] PT Coag (PPP) [Time] 16.3 s High 11.8-14.3 [facility] Comment on above: Order Comment: Jennifer the induction phase of oral anticoagulation, the INR may not reflect the anticoagulation status of the patient. Therapeutic ranges for INR's are: Most clinical situations: INR 2.0-3.0 Mechanical Prosthetic Valve: INR 2.5-3.5 Critical: INR >5.0 Performed By: #### 4 [id number] #### [facility] [address] [place] [address] 80288 Jaron Méndez M.D. [id number] T4, FREEon 10-09-2023 Free T4 [Mass/Vol] 1.4 ng/dL Normal 0.7-1.7 [facility] Comment on above: Performed By: #### 4 [id number] #### [facility] [address] [place] [address] 84661 Jaron Méndez M.D. [id number] TROPONINon 10-09-2023 BASELINE TROPONIN I NG/L 69 ng/L Off scale high <=59 [facility] Comment on above: Performed By: #### 4 [id number] #### LAB [address] [place] [address]2230 Jaron Méndez M.D. [id number] TROPONIN I INTERPRETATION Possible acute cardiac injury. [facility] Comment on above: Performed By: #### 4 6608 #### LAB [address] [place] [address] 05094 Jaron Méndez M.D. [id number] TSHon 10-09-2023 TSH Qn 8.26 m[IU]/L High 0.27-4.20 [facility] Comment on above: Performed By: #### 4 6613 #### LAB [address] [place] [address] 45897 Jaron Méndez M.D. [id number] TYPE AND SCREENon 10-09-2023 TYPE AND SCREEN ABORH: O Positive AB SCREEN: Negative EXPIRATION DATE: 10/12/2023 23:59 EST [facility] Comment on above: Performed By: #### 4 [id number] ####[facility] [address] [place] [address] Nurys Oneill MD [id number] [facility] TYPE AND SCREEN ABORH: O Positive AB SCREEN: Negative EXPIRATION DATE: 10/12/2023 23:59 EST [facility] XR CHEST PA/APon 10-09-2023 XR CHEST PA/AP [...] on MonOctober 09, 2023 4:48:26 PM EDT [facility] Comment on above: Order Comment: Jennifer retana the induction phase of oral anticoagulation, the INR may not reflect the anticoagulation status of the patient. Therapeutic ranges for INR's are: Most clinical situations: INR 2.0-3.0 Mechanical Prosthetic Valve: INR 2.5-3.5 Critical: INR >5.0 INR Coag (Bld) [Relative keron e]on 09-07-2023 Interpretation and review of laboratory results Abnormal [facility] POC INRon 09-07-2023 INR Coag (Bld) [Relative time] 2.8 {INR} Abnormal 0.8 - 1.1 [facility] INR Coag (Bld) [Relative keron e]on 08-10-2023 Interpretation and review of laboratory results Abnormal [facility] POC INRon 08-10-2023 INR Coag (Bld) [Relative time] 2.3 {INR} Abnormal 0.8 - 1.1 [facility] INR Coag (Bld) [Relative keron e]on 07-13-2023 Interpretation and review of laboratory results Abnormal [facility] POC INRon 07-13-2023 INR Coag (Bld) [Relative time] 2.5 {INR} Abnormal 0.8 - 1.1 [facility] XR LUMBAR SPINE 2-3 VIEWS (S TANDARD)on [...] 04, 2023 4:04:30 PM EST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 cells.squamous Auto #/area (Urine sed) <1 [facility] Glucose Automated test strip mass conc (U) Negative Negative mg/dL [facility] Hemoglobin Automated test strip Ql (U) Negative Negative [facility] Interpretation and review of laboratory results Normal [facility] Ketones mass conc (U) Negative Negati ve mg/dL [facility] Leukocyte esterase Automated test strip Ql (U) Negative Negative [facility] Nitrite Automated test strip Ql (U) Negative Negative [facility] pH (U) 5.0 [pH] [facility] Protein mass conc (U) Negative Negati ve mg/dL [facility] Specific gravity Relative Density (U) 1.006 [facility] Urobilinogen mass conc (U) <2.0 <2.0 mg/dL [facility] WBC Auto #/area (Urine sed) <1 [facility] Microscopic examinat ion is performed on all urinalysis samples and only positive findings are reported. The test for blood on the chemical analytic portion of urinalysis may also be positive due to hemoglobinuria and myoglobinuria and if red blood cells are present they are quantified by microscopic examination. [facility] Hepatitis C Antibodyon 09-28 Hepatitis C Antibody Negative Normal Negative [facility] Comment on above: Result Comment: Test performed using Adele ANNALISE immunoassay systemTest Performed by [facility] [id number] [place] [address] Performed By: #### T SH, LIPID ####Unless otherwise noted, all testing performed by [address] [phone]: [id number] Director: Jaron Méndez M.D.#### HEPCABS ####Unless otherwise noted, all testing performed by [place] [address] [address] [place], [place] [phone]: [id number] Director: Jaron Méndez M.D. Lipid Panelon 09-28-2017 Cholesterol 223 mg/dL High 100-199 [facility] Comment on above: Performed By: #### T SH, LIPID ####Unless otherwise noted, all testing performed by [address] [phone]: [id number] Director: Jaron Méndez M.D.#### HEPCABS ####Unless otherwise noted, all testing performed by [address] [phone]: [id number] Director: Jaron Méndez M.D. Cholesterol in VLDL mass conc 24 mg/dL Normal 5-40 [facility] Comment on above: Performed By: #### T SH, LIPID ####Unless otherwise noted, all testing performed by [address] [phone]: [id number] Director: Jaron Méndez M.D.#### HEPCABS ####Unless otherwise noted, all testing performed by [address] [phone]: [id number] Director: Jaron Méndez M.D. Cholesterol to HDL Ratio 5.2 {ratio} High 3.2-4.5 [facility] Comment on above: Result Comment: Nishaa le Coronary Heart Disease Risk Factor (CHDRF):Average risk= 4.41/2 Average risk= 3.32 times Average risk= 7.1 Performed By: #### T SH, LIPID ####Unless otherwise noted, all testing performed by [address] [phone]: [id number] Director: Jaron Méndez M.D.#### HEPCABS ####Unless otherwise noted, all testing performed by [address] [phone]: [id number] Director: Jaron Méndez M.D. HDL Cholesterol 43 mg/dL Normal 40-59 [facility] Comment on above: Performed By: #### T SH, LIPID ####Unless otherwise noted, all testing performed by [address] [phone]: [id number] Director: Jaron Méndez M.D.#### HEPCABS ####Unless otherwise noted, all testing performed by [address]: [id number] Director: Jaron Méndez M.D. Interpretation and review of laboratory results Abnormal Invalid Interpretation Code [facility] LDL Cholesterol 156 mg/dL High 10 - 150 mg/dL [facility] LDL Cholesterol 156 mg/dL High 10-150 [facility] Comment on above: Performed By: #### T SH, LIPID ####Unless otherwise noted, all testing performed by [address] [phone]: [id number] Director: Jaron Méndez M.D.#### HEPCABS ####Unless otherwise noted, all testing performed by [address] [phone]: [id number] Director: Jaron Méndez M.D. Triglyceride 118 mg/dL Normal 30-150 [facility] Comment on above: Performed By: #### T SH, LIPID ####Unless otherwise noted, all testing performed by [address] [id number]: [id number] Director: Jaron Méndez M.D.#### HEPCABS ####Unless otherwise noted, all testing performed by [address] [id number]: [id number] Director: Jaron Méndez M.D. VLDL 24 mg/dL Invalid Interpretation Code 5 - 40 mg/dL [facility] TSHon 09-28-2017 Thyroid stimulating hormone (TSH) 2.63 uIU/mL Invalid Interpretation Code 0.32 - 5.00 [facility] Thyroid stimulating hormone (TSH) 2.63 uIU/mL Normal 0.32-5.00 [facility] Comment on above: Result Comment: Samp les from patients routinely receiving high dose biotin therapy(100-300 mg/day) may show falsely decreased results. Please correlateclinically. Performed By: #### T SH, LIPID ####Unless otherwise noted, all testing performed by [address] [id number]: [id number] Director: Jaron Méndez M.D.#### HEPCABS ####Unless otherwise noted, all testing performed by [address] [id number]: [id number] Director: Jaron Méndez M.D. XR Lumbar Spine 2-3 Views (Antonio crareno)on 09-05-2017 INR in blood by coagulation X-ray [...] findings otherwise Invalid Interpretation Code FUJI SYNAPSE [facility] Vital Signs Date Time Vital Sign Value Performing Clinician Facility 09-15-2024 07:00-0400 Body temperature 98.6 [degF] Dr. Ethan Rodriguez MD Work Phone: [facility] 09-15-2024 07:00-0400 Diastolic blood pressure 85 mm[Hg] Dr. Ethan Rodriguez MD Work Phone: 9(594)313-856815 [address] 09-15-2024 07:00-0400 Heart rate 100 /min Dr. Ethan Rodriguez MD Work Phone: 9(421)669-814215 [address] 09-15-2024 07:00-0400 Inhaled oxygen flow rate 4 L/min Dr. Ethan Rodriguez MD Work Phone: 6(550)587-893415 [address] 09-15-2024 07:00-0400 Respiratory rate 20 /min Dr. Ethan Rodriguez MD Work Phone: 4(895)741-730315 [address] 09-15-2024 07:00-0400 SaO2% (BldA) [Mass fraction] 96 % Dr. Ethan Rodriguez MD Work Phone: 8(635)315-144733 [place] [address] 09-15-2024 07:00-0400 Systolic blood pressure 145 mm[Hg] Dr. Ethan Rodriguez MD Work Phone: 6(336)178-846015 [address] 09-15-2024 04:35-0400 Inhaled oxygen concentration 10 % Dr. Ethan Rodriguez MD Work Phone: 0(648)608-307915 [address] 09-15-2024 04:23-0400 Body height 182.[address] Ethan Rodriguez MD Work Phone: 4(985)952-869615 [address] 09-15-2024 04:23-0400 Body mass index (BMI) [Ratio] 16.5 kg/m2 Dr. Ethan Rodriguez MD Work Phone: 0(795)142-527233 [place] [address] 09-15-2024 04:23-0400 Body weight 55.[address] Ethan Rodriguez MD Work Phone: 5(683)785-402533 [place] [address] 08-31-2024 16:15-0400 Inhaled oxygen flow rate 3 L/min Dr. Ethan Rodriguez MD Work Phone: [facility] 08-31-2024 16:15-0400 SaO2% (BldA) [Mass fraction] 96 % Dr. Ethan Rodriguez MD Work Phone: [facility] 08-31-2024 14:00-0400 Body temperature 97 [degF] Dr. Ethan Rodriguez MD Work Phone: 8(532)013-210054 [place] [address] 08-31-2024 14:00-0400 Diastolic blood pressure 71 mm[Hg] Dr. Ethan Rodriguez MD Work Phone: [facility] 08-31-2024 14:00-0400 Heart rate 70 /min Dr. Ethan Rodriguez MD Work Phone: 9(327)831-049654 [place] [address] 08-31-2024 14:00-0400 Respiratory rate 16 /min Dr. Ethan Rodriguez MD Work Phone: 5(507)690-671654 [place] [address] 08-31-2024 14:00-0400 Systolic blood pressure 126 mm[Hg] Dr. Ethan Rodriguez MD Work Phone: [facility] 08-31-2024 09:38-0400 Body weight 54.[address] Ethan Rodriguez MD Work Phone: [facility] 08-17-2024 09:46-0400 Body temperature 97.8 [degF] Dr. Ethan Rodriguez MD Work Phone: [facility] 08-17-2024 09:46-0400 Diastolic blood pressure 96 mm[Hg] Dr. Ethan Rodriguez MD Work Phone: [facility] 08-17-2024 09:46-0400 Heart rate 107 /min Dr. Ethan Rodriguez MD Work Phone: 5(828)659-876854 [place] [address] 08-17-2024 09:46-0400 Inhaled oxygen flow rate 2 L/min Dr. Ethan Rodriguez MD Work Phone: [facility] 08-17-2024 09:46-0400 Respiratory rate 18 /min Dr. Ethan Rodriguez MD Work Phone: [facility] 08-17-2024 09:46-0400 SaO2% (BldA) [Mass fraction] 97 % Dr. Ethan Rodriguez MD Work Phone: [facility] 08-17-2024 09:46-0400 Systolic blood pressure 162 mm[Hg] Dr. Ethan Rodriguez MD Work Phone: 6(465)746-291354 [place] [address] 08-17-2024 05:07-0400 Body mass index (BMI) [Ratio] 14.6 kg/m2 Dr. Ethan Rodriguez MD Work Phone: 4(909)628-254454 [place] [address] 08-17-2024 05:07-0400 Body weight [address] Ethan Rodriguez MD Work Phone: 6(100)025-584233 [place] [address] 08-14-2024 14:07-0400 Body height 182.[address] Ethan Rodriguez MD Work Phone: 1(923)622-271933 [place] [address] 08-14-2024 12:20-0400 Body temperature 97.8 [degF] Dr. Ethan Rodriguez MD Work Phone: 5(829)230-810033 [place] [address] 08-14-2024 12:20-0400 Diastolic blood pressure 70 mm[Hg] Dr. Ethan Rodriguez MD Work Phone: 7(498)583-453333 [place] [address] 08-14-2024 12:20-0400 Heart rate 90 /min Dr. Ethan Rodriguez MD Work Phone: 8(062)336-201833 [place] [address] 08-14-2024 12:20-0400 Respiratory rate 17 /min Dr. Ethan Rodriguez MD Work Phone: 4(219)490-967854 [place] [address] 08-14-2024 12:20-0400 SaO2% (BldA) [Mass fraction] 94 % Dr. Ethan Rodriguez MD Work Phone: 0(799)663-683715 [address] 08-14-2024 12:20-0400 Systolic blood pressure 95 mm[Hg] Dr. Ethan Rodriguez MD Work Phone: 1(020)263-216654 [place] [address] 08-14-2024 11:00-0400 Inhaled oxygen flow rate 4 L/min Dr. Ethan Rodriguez MD Work Phone: 9(703)626-133354 [place] [address] 08-14-2024 07:25-0400 Body height 182.[address] Ethan Rodriguez MD Work Phone: [facility] 08-14-2024 07:25-0400 Body mass index (BMI) [Ratio] 16.7 kg/m2 Dr. Ethan Rodriguez MD Work Phone: [facility] 08-14-2024 07:25-0400 Body weight [address] Ethan Rodriguez MD Work Phone: 0(049)551-218654 [place] [address] 08-13-2024 15:30-0400 Inhaled oxygen flow rate 3 L/min Dr. Ethan Rodriguez MD Work Phone: 9(278)943-613515 [address] 08-13-2024 14:36-0400 Body temperature 99 [degF] Dr. Ethan Rodriguez MD Work Phone: 2(565)715-178654 [place] [address] 08-13-2024 14:36-0400 Diastolic blood pressure 69 mm[Hg] Dr. Ethan Rodriguez MD Work Phone: 5(297)906-200054 [place] [address] 08-13-2024 14:36-0400 Heart rate 89 /min Dr. Ethan Rodriguez MD Work Phone: [facility] 08-13-2024 14:36-0400 Respiratory rate 18 /min Dr. Ethan Rodriguez MD Work Phone: [facility] 08-13-2024 14:36-0400 SaO2% (BldA) [Mass fraction] 100 % Dr. Ethan Rodriguez MD Work Phone: [facility] 08-13-2024 14:36-0400 Systolic blood pressure 144 mm[Hg] Dr. Ethan Rodriguez MD Work Phone: [facility] 08-12-2024 12:30-0400 Body mass index (BMI) [Ratio] 11.9 kg/m2 Dr. Ethan Rodriguez MD Work Phone: [facility] 08-12-2024 12:30-0400 Body weight [address] Ethan Rodriguez MD Work Phone: [facility] 08-06-2024 11:09-0400 Inhaled oxygen concentration 95 % Dr. Ethan Rodriguez MD Work Phone: [facility] 07-29-2024 17:48-0500 Body temperature 98.5 [degF] Dr. Ethan Rodriguez MD Work Phone: 2(104)301-753854 [place] [address] 07-29-2024 17:48-0500 Diastolic blood pressure 72 mm[Hg] Dr. Ethan Rodriguez MD Work Phone: 2(407)335-039133 [place] [address] 07-29-2024 17:48-0500 Heart rate 78 /min Dr. Ethan Rodriguez MD Work Phone: 3(953)529-309533 [place] [address] 07-29-2024 17:48-0500 Respiratory rate 18 /min Dr. Ethan Rodriguez MD Work Phone: 0(270)375-652933 [place] [address] 07-29-2024 17:48-0500 SaO2% (BldA) [Mass fraction] 97 % Dr. Ethan Rodriguez MD Work Phone: 8(768)634-014733 [place] [address] 07-29-2024 17:48-0500 Systolic blood pressure 149 mm[Hg] Dr. Ethan Rodriguez MD Work Phone: 8(579)609-471533 [place] [address] 07-29-2024 14:55-0500 Inhaled oxygen flow rate 2 L/min Dr. Ethan Rodriguez MD Work Phone: 6(568)537-822233 [place] [address] 07-29-2024 12:02-0500 Body weight 37.[address] Ethan Rodriguez MD Work Phone: 1(586)986-325833 [place] [address] 07-29-2024 11:30-0500 Body mass index (BMI) [Ratio] 11.2 kg/m2 Dr. Ethan Rodriguez MD Work Phone: 2(624)161-501354 [place] [address] 07-18-2024 18:01-0500 Diastolic blood pressure 66 mm[Hg] Dr. Ethan Rodriguez MD Work Phone: 5(289)325-051933 [place] [address] 07-18-2024 18:01-0500 Heart rate 62 /min Dr. Ethan Rodriguez MD Work Phone: 6(326)206-979933 [place] [address] 07-18-2024 18:01-0500 Inhaled oxygen flow rate 3 L/min Dr. Ethan Rodriguez MD Work Phone: 8(840)411-347354 [place] [address] 07-18-2024 18:01-0500 Respiratory rate 15 /min Dr. Ethan Rodrigeuz MD Work Phone: 2(721)016-466233 [place] [address] 07-18-2024 18:01-0500 SaO2% (BldA) [Mass fraction] 100 % Dr. Ethan Rodriguez MD Work Phone: 2(791)214-661833 [place] [address] 07-18-2024 18:01-0500 Systolic blood pressure 140 mm[Hg] Dr. Ethan Rodriguez MD Work Phone: 9(210)358-287033 [place] [address] 07-18-2024 15:40-0500 Body temperature 97.4 [degF] Dr. Ethan Rodriguez MD Work Phone: 9(201)333-695133 [place] [address] 07-18-2024 09:50-0500 Body mass index (BMI) [Ratio] 14.6 kg/m2 Dr. Ethan Rodriguez MD Work Phone: 6(365)216-640133 [place] [address] 07-18-2024 09:50-0500 Body weight 49.[address] Ethan Rodriguez MD Work Phone: 7(491)514-854233 [place] [address] 06-05-2024 15:34-0500 Body temperature 97.3 [degF] Dr. Ethan Rodriguez MD Work Phone: 6(462)172-002133 [place] [address] 06-05-2024 15:34-0500 Diastolic blood pressure 60 mm[Hg] Dr. Ethan Rodriguez MD Work Phone: 6(661)363-956033 [place] [address] 06-05-2024 15:34-0500 Heart rate 98 /min Dr. Ethan Rodriguez MD Work Phone: 1(510)709-385033 [place] [address] 06-05-2024 15:34-0500 Respiratory rate 16 /min Dr. Ethan Rodriguez MD Work Phone: 1(104)391-116533 [place] [address] 06-05-2024 15:34-0500 Systolic blood pressure 90 mm[Hg] Dr. Ethan Rodriguez MD Work Phone: 1(657)659-031733 [place] [address] 04-30-2024 13:45-0500 Body mass index (BMI) [Ratio] 15 kg/m2 Dr. Ethan Rodriguez MD Work Phone: [facility] 04-30-2024 13:45-0500 Body weight 48.[address] Ethan Rodriguez MD Work Phone: [facility] 04-30-2024 13:45-0500 Diastolic blood pressure 81 mm[Hg] Dr. Ethan Rodriguez MD Work Phone: [facility] 04-30-2024 13:45-0500 Respiratory rate 18 /min Dr. Ethan Rodriguez MD Work Phone: [facility] 04-30-2024 13:45-0500 Systolic blood pressure 112 mm[Hg] Dr. Ethan Rodriguez MD Work Phone: [facility] 04-04-2024 10:22-0500 Body height 182.9 cm Cate Contreras [employer]PERVISOR Work Phone: [facility] 04-04-2024 10:22-0500 Body mass index (BMI) [Ratio] 15.6 kg/m2 Cate Contreras [employer] SUPERVISOR Work Phone: [facility] 04-04-2024 10:22-0500 Body weight 52.16 kg Cate Contreras [employer] SUPERVISOR Work Phone: [facility] 04-04-2024 10:22-0500 Diastolic blood pressure 60 mm[Hg] Cate Contreras [employer] OFF[employer] SUPERVISOR Work Phone: [facility] 04-04-2024 10:22-0500 Heart rate 94 /min Cate Contreras [employer] SUPERVISOR Work Phone: [facility] 04-04-2024 10:22-0500 Respiratory rate 12 /min Cate Contreras [employer] SUPERVISOR Work Phone: [facility] 04-04-2024 10:22-0500 SaO2% (BldA) [Mass fraction] 92 % Cate Contreras [employer] SUPERVISOR Work Phone: [facility] 04-04-2024 10:22-0500 Systolic blood pressure 82 mm[Hg] Cate Contreras [employer] SUPERVISOR Work Phone: [facility] 01-09-2024 12:36-0400 Diastolic blood pressure 97 mm[Hg] Sarath Rey MD Work Phone: [facility] 01-09-2024 12:36-0400 Heart rate 73 /min Sarath Rey MD Work Phone: [facility] 01-09-2024 12:36-0400 Systolic blood pressure 146 mm[Hg] Sarath Rey MD Work Phone: [facility] 01-09-2024 12:30-0400 Body height 180.3 cm Sarath Rey MD Work Phone: [facility] 01-09-2024 12:30-0400 Body mass index (BMI) [Ratio] 16.46 kg/m2 Sarath Rey MD Work Phone: [facility] 01-09-2024 12:30-0400 Body weight 53.52 kg Sarath Rey MD Work Phone: [facility] 01-03-2024 07:49-0400 Body temperature 97.3 [degF] Makenzie Garza RN [facility] 01-03-2024 07:49-0400 Diastolic blood pressure 82 mm[Hg] Makenzie Garza RN [facility] 01-03-2024 07:49-0400 Heart rate 72 /min Makenzie Garza RN [facility] 01-03-2024 07:49-0400 Respiratory rate 18 /min Makenzie Garza RN [facility] 01-03-2024 07:49-0400 SaO2% (BldA) [Mass fraction] 94 % Makenzie Garza RN [facility] 01-03-2024 07:49-0400 Systolic blood pressure 144 mm[Hg] Makenzie Garza RN [facility] 12-27-2023 16:20-0400 Body mass index (BMI) [Ratio] 16.32 kg/m2 Nahid Lindsay PT [facility] 12-27-2023 16:20-0400 Body temperature 98.1 [degF] Nahid Lindsay PT [facility] 12-27-2023 16:20-0400 Body weight 53.07 kg Nahid Lindsay PT [facility] 12-27-2023 16:20-0400 Diastolic blood pressure 82 mm[Hg] Nahid Lindsay PT [facility] 12-27-2023 16:20-0400 Heart rate 62 /min Nahid Lindsay PT [facility] 12-27-2023 16:20-0400 Respiratory rate 16 /min Nahid Lindsay PT [facility] 12-27-2023 16:20-0400 SaO2% (BldA) [Mass fraction] 96 % Nahid Lindsay PT [facility] 12-27-2023 16:20-0400 Systolic blood pressure 124 mm[Hg] Nahid Lindsay PT [facility] 12-27-2023 12:35-0400 Body temperature 97.11 [degF] Antonietta Aleshia [employer] [facility] 12-27-2023 12:35-0400 Diastolic blood pressure 80 mm[Hg] Antonietta Aleshia [employer] [facility] 12-27-2023 12:35-0400 Heart rate 72 /min Antonietta Aleshia [facility] 12-27-2023 12:35-0400 Respiratory rate 16 /min Antonietta Aleshia [employer] [facility] 12-27-2023 12:35-0400 SaO2% (BldA) [Mass fraction] 93 % Antonietta Aleshia [employer] [facility] 12-27-2023 12:35-0400 Systolic blood pressure 122 mm[Hg] Antonietta Aleshia [employer] [facility] 12-26-2023 11:59-0400 Diastolic blood pressure 87 mm[Hg] Sarath Rey MD Work Phone: [facility] 12-26-2023 11:59-0400 Heart rate 65 /min Sarath Rey MD Work Phone: [facility] 12-26-2023 11:59-0400 Systolic blood pressure 145 mm[Hg] Sarath Rey MD Work Phone: [facility] 12-26-2023 11:53-0400 Body height 180.3 cm Sarath Rey MD Work Phone: [facility] 12-26-2023 11:53-0400 Body mass index (BMI) [Ratio] 16.18 kg/m2 Sarath Rey MD Work Phone: [facility] 12-26-2023 11:53-0400 Body weight 52.62 kg Sarath Rey MD Work Phone: [facility] 12-25-2023 14:00-0400 Body temperature 96.91 [degF] [facility] 12-25-2023 14:00-0400 Diastolic blood pressure 90 mm[Hg] [facility] 12-25-2023 14:00-0400 Heart rate 80 /min [facility] 12-25-2023 14:00-0400 Respiratory rate 16 /min [facility] 12-25-2023 14:00-0400 Systolic blood pressure 147 mm[Hg] [facility] 12-20-2023 16:23-0400 Body temperature 98.8 [degF] Adilene Albright [facility] 12-20-2023 16:23-0400 Diastolic blood pressure 93 mm[Hg] Adilene Albright [facility] 12-20-2023 16:23-0400 Heart rate 66 /min Adilene Albright [facility] 12-20-2023 16:23-0400 Respiratory rate 16 /min Adilene Albright [facility] 12-20-2023 16:23-0400 SaO2% (BldA) [Mass fraction] 98 % Adilene Albright [facility] 12-20-2023 16:23-0400 Systolic blood pressure 150 mm[Hg] Adilene Albright [facility] 12-20-2023 12:22-0400 Body temperature 97.7 [degF] Ernestina Moody [facility] 12-20-2023 12:22-0400 Diastolic blood pressure 75 mm[Hg] Ernestina Moody [facility] 12-20-2023 12:22-0400 Heart rate 70 /min Ernestina Moody [facility] 12-20-2023 12:22-0400 Respiratory rate 16 /min Ernestina Moody [facility] 12-20-2023 12:22-0400 SaO2% (BldA) [Mass fraction] 98 % Ernestina Moody [facility] 12-20-2023 12:22-0400 Systolic blood pressure 148 mm[Hg] Ernestina Moody [facility] 12-18-2023 12:33-0400 Diastolic blood pressure 87 mm[Hg] Ernestina Moody [facility] 12-18-2023 12:33-0400 Respiratory rate 16 /min Ernestina Moody [facility] 12-18-2023 12:33-0400 Systolic blood pressure 153 mm[Hg] Ernestina Moody [facility] 12-18-2023 12:08-0400 Body temperature 97 [degF] Ernestina Moody [facility] 12-18-2023 12:08-0400 Heart rate 59 /min Ernestina Moody [facility] 12-14-2023 11:15-0400 Body temperature 97 [degF] Ernestina Moody [facility] 12-14-2023 11:15-0400 Diastolic blood pressure 72 mm[Hg] Ernestina Moody [facility] 12-14-2023 11:15-0400 Heart rate 62 /min Ernestina Moody [facility] 12-14-2023 11:15-0400 Respiratory rate 16 /min Ernestina Moody [facility] 12-14-2023 11:15-0400 SaO2% (BldA) [Mass fraction] 97 % Ernestina Moody [facility] 12-14-2023 11:15-0400 Systolic blood pressure 117 mm[Hg] Ernestina Modoy [facility] 12-13-2023 13:12-0400 Body temperature 97 [degF] Makenzie Garza [facility] 12-13-2023 13:12-0400 Diastolic blood pressure 68 mm[Hg] Makenzie Garza RN [facility] 12-13-2023 13:12-0400 Heart rate 56 /min Makenzie Garza RN [facility] 12-13-2023 13:12-0400 Respiratory rate 18 /min Makenzie Garza RN [facility] 12-13-2023 13:12-0400 SaO2% (BldA) [Mass fraction] 99 % Makenzie Garza RN [facility] 12-13-2023 13:12-0400 Systolic blood pressure 118 mm[Hg] Makenzie Garza RN [facility] 12-13-2023 11:13-0400 Body temperature 97.2 [degF] Ernestina Moody [facility] 12-13-2023 11:13-0400 Diastolic blood pressure 88 mm[Hg] Ernestina Moody [facility] 12-13-2023 11:13-0400 Heart rate 64 /min Ernestina Moody [facility] 12-13-2023 11:13-0400 Respiratory rate 16 /min Ernestina Moody [facility] 12-13-2023 11:13-0400 Systolic blood pressure 140 mm[Hg] Ernestina Moody [facility] 12-06-2023 14:27-0400 Body mass index (BMI) [Ratio] 15.9 kg/m2 Nahid Lindsay PT [facility] 12-06-2023 14:27-0400 Body temperature 98.1 [degF] Nahid Lindsay PT [facility] 12-06-2023 14:27-0400 Body weight 51.71 kg Nahid Lindsay PT [facility] 12-06-2023 14:27-0400 Diastolic blood pressure 74 mm[Hg] Nahid Lindsay PT [facility] 12-06-2023 14:27-0400 Heart rate 76 /min Nahid Lindsay PT [facility] 12-06-2023 14:27-0400 Respiratory rate 16 /min Nahid Lindsay PT [facility] 12-06-2023 14:27-0400 SaO2% (BldA) [Mass fraction] 96 % Nahid Lindsay PT [facility] 12-06-2023 14:27-0400 Systolic blood pressure 128 mm[Hg] Nahid Lindsay PT [facility] 12-06-2023 10:29-0400 Body temperature 97.7 [degF] Makenzie Garza RN [facility] 12-06-2023 10:29-0400 Diastolic blood pressure 78 mm[Hg] Makenzie Garza RN [facility] 12-06-2023 10:29-0400 Heart rate 88 /min Makenzie Garza RN [facility] 12-06-2023 10:29-0400 Respiratory rate 16 /min Makenzie Garza RN [facility] 12-06-2023 10:29-0400 Systolic blood pressure 148 mm[Hg] Makenzie Garza RN [facility] 12-05-2023 11:20-0400 Body temperature 97.7 [degF] Ernestina Moody [facility] 12-05-2023 11:20-0400 Diastolic blood pressure 73 mm[Hg] Ernestina Moody [facility] Comment on above: pt had not taken BP medication yet 12-05-2023 11:20-0400 Heart rate 69 /min Ernetsina Moody [facility] 12-05-2023 11:20-0400 Respiratory rate 16 /min Ernestina Moody [facility] 12-05-2023 11:20-0400 SaO2% (BldA) [Mass fraction] 98 % Ernestina Moody [facility] 12-05-2023 11:20-0400 Systolic blood pressure 150 mm[Hg] Ernestina Moody [facility] Comment on above: pt had not taken BP medication yet 11-29-2023 13:07-0400 Body temperature 98.1 [degF] Sol Bui OT [facility] 11-29-2023 13:07-0400 Diastolic blood pressure 76 mm[Hg] Sol Bui OT [facility] 11-29-2023 13:07-0400 Heart rate 62 /min Sol Bui OT [facility] 11-29-2023 13:07-0400 Respiratory rate 14 /min Sol Bui OT [facility] 11-29-2023 13:07-0400 Systolic blood pressure 139 mm[Hg] Sol Bui OT [facility] 11-29-2023 11:44-0400 Body temperature 97.11 [degF] Adilene Albright [facility] 11-29-2023 11:44-0400 Diastolic blood pressure 77 mm[Hg] Adilene Albright [facility] 11-29-2023 11:44-0400 Heart rate 61 /min Adileneher Albright [facility] 11-29-2023 11:44-0400 Respiratory rate 18 /min Adileneher Albright [facility] 11-29-2023 11:44-0400 SaO2% (BldA) [Mass fraction] 100 % Adileneher Albright [facility] 11-29-2023 11:44-0400 Systolic blood pressure 127 mm[Hg] Adilene Albright [facility] 11-29-2023 09:19-0400 Body temperature 97.5 [degF] Ernestina Moody [facility] 11-29-2023 09:19-0400 Diastolic blood pressure 80 mm[Hg] Ernestina Moody [facility] 11-29-2023 09:19-0400 Heart rate 64 /min Ernestina Moody [facility] 11-29-2023 09:19-0400 Respiratory rate 16 /min Ernestina Moody [facility] 11-29-2023 09:19-0400 SaO2% (BldA) [Mass fraction] 99 % Ernestina Moody [facility] 11-29-2023 09:19-0400 Systolic blood pressure 127 mm[Hg] Ernestina Moody [facility] 11-28-2023 10:13-0400 Body temperature 97.2 [degF] Ernestina Moody [facility] 11-28-2023 10:13-0400 Diastolic blood pressure 82 mm[Hg] Ernestina Moody [facility] 11-28-2023 10:13-0400 Heart rate 69 /min Ernestina Moody [facility] 11-28-2023 10:13-0400 Respiratory rate 16 /min Ernestina Moody [facility] 11-28-2023 10:13-0400 SaO2% (BldA) [Mass fraction] 100 % Ernestina Moody [facility] 11-28-2023 10:13-0400 Systolic blood pressure 133 mm[Hg] Ernestina Moody [facility] 11-27-2023 15:51-0400 Body temperature 97.59 [degF] Giovany [facility] 11-27-2023 15:51-0400 Diastolic blood pressure 76 mm[Hg] [facility] 11-27-2023 15:51-0400 Heart rate 83 /min Giovany [facility] 11-27-2023 15:51-0400 Respiratory rate 16 /min [facility] 11-27-2023 15:51-0400 SaO2% (BldA) [Mass fraction] 99 % Giovany [facility] 11-27-2023 15:51-0400 Systolic blood pressure 111 mm[Hg] Giovany [facility] 11-24-2023 15:47-0400 Body temperature 98.71 [degF] Giovany [facility] 11-24-2023 15:47-0400 Diastolic blood pressure 83 mm[Hg] Giovany [facility] 11-24-2023 15:47-0400 Heart rate 69 /min [facility] 11-24-2023 15:47-0400 Respiratory rate 16 /min Giovany [facility] 11-24-2023 15:47-0400 SaO2% (BldA) [Mass fraction] 99 % [facility] 11-24-2023 15:47-0400 Systolic blood pressure 163 mm[Hg] Giovany [facility] 11-23-2023 16:05-0400 Body temperature 97.7 [degF] [facility] 11-23-2023 16:05-0400 Diastolic blood pressure 89 mm[Hg] Giovany [facility] 11-23-2023 16:05-0400 Heart rate 58 /min Giovany MONDRAGON [facility] 11-23-2023 16:05-0400 Respiratory rate 16 /min Giovany MONDRAGON [facility] 11-23-2023 16:05-0400 SaO2% (BldA) [Mass fraction] 99 % Giovany MONDRAGON [facility] 11-23-2023 16:05-0400 Systolic blood pressure 140 mm[Hg] Giovany MONDRAGON [facility] 11-23-2023 13:17-0400 Diastolic blood pressure 80 mm[Hg] Ying Quispe DO Work Phone: [facility] 11-23-2023 13:17-0400 Systolic blood pressure 104 mm[Hg] Ying Quispe DO Work Phone: [facility] 11-23-2023 13:11-0400 Body height 180.3 cm Ying Quispe DO Work Phone: [facility] 11-23-2023 13:11-0400 Body mass index (BMI) [Ratio] 16.01 kg/m2 Ying Quispe DO Work Phone: [facility] 11-23-2023 13:11-0400 Body temperature 98.29 [degF] Ying Quispe DO Work Phone: [facility] 11-23-2023 13:11-0400 Body weight 52.07 kg Ying Quispe DO Work Phone: [facility] 11-23-2023 13:11-0400 Heart rate 90 /min Ying Quispe DO Work Phone: [facility] 11-23-2023 13:11-0400 Respiratory rate 16 /min Ying Qiuspe DO Work Phone: [facility] 11-23-2023 09:59-0400 Body temperature 96.8 [degF] Ernestina Moody [facility] 11-23-2023 09:59-0400 Diastolic blood pressure 81 mm[Hg] Ernestina Moody [facility] 11-23-2023 09:59-0400 Heart rate 67 /min Ernestina Moody [facility] 11-23-2023 09:59-0400 Respiratory rate 16 /min Ernestina Moody [facility] 11-23-2023 09:59-0400 Systolic blood pressure 157 mm[Hg] Ernestina Moody [facility] 11-22-2023 13:56-0400 Body temperature 98.49 [degF] Abigail Domka [employer] OFFICE SUPERVISOR Work Phone: [facility] 11-22-2023 13:56-0400 Diastolic blood pressure 74 mm[Hg] Abigail Domka FR[employer] OFFICE SUPERVISOR Work Phone: [facility] 11-22-2023 13:56-0400 Heart rate 89 /min Abigail Domka FR[employer] OFFICE SUPERVISOR Work Phone: [facility] 11-22-2023 13:56-0400 Respiratory rate 16 /min Abigail Domka FR[employer] OFFICE SUPERVISOR Work Phone: [facility] 11-22-2023 13:56-0400 SaO2% (BldA) [Mass fraction] 93 % Abigail Domka FR[employer] OFFICE SUPERVISOR Work Phone: [facility] 11-22-2023 13:56-0400 Systolic blood pressure 114 mm[Hg] Abigail Domka FR[employer] OFFICE SUPERVISOR Work Phone: [facility] 11-21-2023 13:21-0400 Body temperature 97.11 [degF] Adilene Maurou [facility] 11-21-2023 13:21-0400 Diastolic blood pressure 64 mm[Hg] Adilene Maurou [facility] 11-21-2023 13:21-0400 Heart rate 60 /min Adileneher Maurou [facility] 11-21-2023 13:21-0400 Respiratory rate 16 /min Adilene Nju [facility] 11-21-2023 13:21-0400 SaO2% (BldA) [Mass fraction] 100 % Adileneher Maurou [facility] 11-21-2023 13:21-0400 Systolic blood pressure 127 mm[Hg] Adilene Maurou [facility] 11-21-2023 12:15-0400 Body temperature 97 [degF] Ernestina Moody [facility] 11-21-2023 12:15-0400 Diastolic blood pressure 63 mm[Hg] Ernestina Moody [facility] 11-21-2023 12:15-0400 Heart rate 59 /min Ernestina Moody [facility] 11-21-2023 12:15-0400 Respiratory rate 16 /min Ernestina Moody [facility] 11-21-2023 12:15-0400 SaO2% (BldA) [Mass fraction] 100 % Ernestina Moody [facility] 11-21-2023 12:15-0400 Systolic blood pressure 121 mm[Hg] Ernestina Moody [facility] 11-17-2023 15:18-0400 Body temperature 97.5 [degF] [facility]-17-[facility] 15:18-0400 Diastolic blood pressure 86 mm[Hg] [facility] 11-17-2023 15:18-0400 Heart rate 75 /min [facility] 11-17-2023 15:18-0400 Respiratory rate 16 /min [facility] 11-17-2023 15:18-0400 SaO2% (BldA) [Mass fraction] 99 % [facility] 11-17-2023 15:18-0400 Systolic blood pressure 148 mm[Hg] [facility] 11-17-2023 08:07-0400 Diastolic blood pressure 81 mm[Hg] Tylor Kruger MD Work Phone: [facility] 11-17-2023 08:07-0400 Heart rate 65 /min Tylor Kruger MD Work Phone: [facility] 11-17-2023 08:07-0400 Systolic blood pressure 145 mm[Hg] Tylor Kruger MD Work Phone: [facility] 11-17-2023 08:05-0400 Body height 180.3 cm Tylor Kruger MD Work Phone: [facility] 11-17-2023 08:05-0400 Body mass index (BMI) [Ratio] 17.43 kg/m2 Tylor Kruger MD Work Phone: [facility] 11-17-2023 08:05-0400 Body weight 56.7 kg Tylor Kruger MD Work Phone: [facility] 11-16-2023 13:44-0400 Body temperature 97.7 [degF] Ernestina Moody [facility] 11-16-2023 13:44-0400 Diastolic blood pressure 64 mm[Hg] Ernestina Moody [facility] 11-16-2023 13:44-0400 Heart rate 65 /min Ernestina Moody [facility] 11-16-2023 13:44-0400 Respiratory rate 16 /min Ernestina Moody [facility] 11-16-2023 13:44-0400 SaO2% (BldA) [Mass fraction] 96 % Ernestina Moody [facility] 11-16-2023 13:44-0400 Systolic blood pressure 111 mm[Hg] Ernestina Moody [employer] [facility] 11-14-2023 10:17-0400 Body temperature 98.29 [degF] Nahid Lindsay PT [facility] 11-14-2023 10:17-0400 Diastolic blood pressure 78 mm[Hg] Nahid Lindsay PT [facility] 11-14-2023 10:17-0400 Heart rate 98 /min Nahid Lindsay PT [facility] 11-14-2023 10:17-0400 Respiratory rate 16 /min Nahid Lindsay PT [facility] 11-14-2023 10:17-0400 SaO2% (BldA) [Mass fraction] 99 % Nahid Lindsay PT [facility] 11-14-2023 10:17-0400 Systolic blood pressure 148 mm[Hg] Nahid Lindsay PT [facility] 11-14-2023 09:47-0400 Body temperature 100 [degF] Adilene Albright [facility] 11-14-2023 09:47-0400 Diastolic blood pressure 82 mm[Hg] [facility]14[facility] 09:47-0400 Heart rate 65 /min [facility] 11-14-2023 09:47-0400 Respiratory rate 16 /min [facility] 11-14-2023 09:47-0400 SaO2% (BldA) [Mass fraction] 97 % [facility] 11-14-2023 09:47-0400 Systolic blood pressure 148 mm[Hg] Adileneher Albright [facility] 11-13-2023 16:18-0400 Body temperature 97.59 [degF] Giovany Montalvo [facility] 11-13-2023 16:18-0400 Diastolic blood pressure 85 mm[Hg] Giovany Montalvo [facility] 11-13-2023 16:18-0400 Heart rate 67 /min Giovany Montalvo [facility] 11-13-2023 16:18-0400 Respiratory rate 16 /min Giovany Montalvo [facility] 11-13-2023 16:18-0400 SaO2% (BldA) [Mass fraction] 99 % Giovany Montalvo [facility] 11-13-2023 16:18-0400 Systolic blood pressure 150 mm[Hg] Giovany Montalvo [facility] 11-08-2023 11:20-0400 Body temperature 99.3 [degF] Sol Bui [facility] 11-08-2023 11:20-0400 Diastolic blood pressure 91 mm[Hg] Sol Bui [facility] 11-08-2023 11:20-0400 Heart rate 70 /min Sol Bui [facility] 11-08-2023 11:20-0400 Respiratory rate 14 /min Sol Bui [facility] 11-08-2023 11:20-0400 SaO2% (BldA) [Mass fraction] 99 % Sol Bui [facility] 11-08-2023 11:20-0400 Systolic blood pressure 177 mm[Hg] Sol Bui [facility] 11-08-2023 00:00-0400 Body temperature 98.1 [degF] Antonietta Aleshia [facility] 11-08-2023 00:00-0400 Diastolic blood pressure 90 mm[Hg] Antonietta Aleshia [facility] 11-08-2023 00:00-0400 Heart rate 72 /min Antonietta Aleshia [facility] 11-08-2023 00:00-0400 Respiratory rate 16 /min Antonietta Aleshia [facility] 11-08-2023 00:00-0400 SaO2% (BldA) [Mass fraction] 97 % Antonietta Aleshia [facility] 11-08-2023 00:00-0400 Systolic blood pressure 148 mm[Hg] Antonietta Aleshia [facility] 11-06-2023 10:03-0400 Body temperature 97.9 [degF] Makenzie Garza RN [facility] 11-06-2023 10:03-0400 Diastolic blood pressure 88 mm[Hg] Makenzie Garza RN [facility] 11-06-2023 10:03-0400 Heart rate 74 /min Makenzie Garza RN [facility] 11-06-2023 10:03-0400 Respiratory rate 16 /min Makenzie Garza RN [facility] 11-06-2023 10:03-0400 SaO2% (BldA) [Mass fraction] 94 % Makenzie Garza RN [facility] 11-06-2023 10:03-0400 Systolic blood pressure 167 mm[Hg] Makenzie Garza RN [facility] 11-01-2023 13:10-0400 Diastolic blood pressure 76 mm[Hg] Cate Contreras FR[employer] OFFICE SUPERVISOR Work Phone: [facility] 11-01-2023 13:10-0400 Heart rate 52 /min Cate Contreras [employer] OFFICE SUPERVISOR Work Phone: [facility] 11-01-2023 13:10-0400 Systolic blood pressure 148 mm[Hg] Cate Contreras FR[employer] OFFICE SUPERVISOR Work Phone: [facility] 11-01-2023 12:53-0400 Body height 180.3 cm Cate Contreras FR[employer] OFFICE SUPERVISOR Work Phone: [facility] 11-01-2023 12:53-0400 Body mass index (BMI) [Ratio] 18.13 kg/m2 Cate Contreras FR[employer] OFFICE SUPERVISOR Work Phone: [facility] 11-01-2023 12:53-0400 Body weight 58.97 kg Cate Contreras FR[employer] OFFICE SUPERVISOR Work Phone: [facility] 09-26-2023 09:01-0400 Body height 180.3 cm Felicity Olson FR[employer] OFFICE SUPERVISOR Work Phone: [facility] 09-26-2023 09:01-0400 Body mass index (BMI) [Ratio] 17.25 kg/m2 Felicity Olson FR[employer] OFFICE SUPERVISOR Work Phone: [facility] 09-26-2023 09:01-0400 Body temperature 98.2 [degF] Felicity Olson FR[employer] OFFICE SUPERVISOR Work Phone: [facility] 09-26-2023 09:01-0400 Body weight 56.11 kg Felicity Olson FR[employer] OFFICE SUPERVISOR Work Phone: [facility] 09-26-2023 09:01-0400 Diastolic blood pressure 70 mm[Hg] Felicity Olson FR[employer] OFFICE SUPERVISOR Work Phone: [facility] 09-26-2023 09:01-0400 Heart rate 75 /min Felicity Olson FR[employer] OFFICE SUPERVISOR Work Phone: [facility] 09-26-2023 09:01-0400 Respiratory rate 18 /min Felicity Olson FR[employer] OFFICE SUPERVISOR Work Phone: [facility] 09-26-2023 09:01-0400 SaO2% (BldA) [Mass fraction] 93 % Felicity Olson FR[employer] OFFICE SUPERVISOR Work Phone: [facility] 09-26-2023 09:01-0400 Systolic blood pressure 114 mm[Hg] Felicity Wesley FR[employer] OFFICE SUPERVISOR Work Phone: [facility] 08-24-2023 12:56-0400 Body temperature 98.91 [degF] Theresa BRIGGS-C Work Phone: [facility] 08-24-2023 12:56-0400 Diastolic blood pressure 64 mm[Hg] Theresa Boykin PA-C Work Phone: [facility] 08-24-2023 12:56-0400 Systolic blood pressure 122 mm[Hg] Theresa Boykin PA-C Work Phone: [facility] 07-18-2023 08:55-0500 Body temperature 98.49 [degF] Yfn Puckett Jr. DPM Work Phone: [facility] 07-18-2023 08:55-0500 Diastolic blood pressure 70 mm[Hg] Yfn Puckett Jr., DPM Work Phone: [facility] 07-18-2023 08:55-0500 Heart rate 89 /min Yfn Puckett Jr., DPM Work Phone: [facility] 07-18-2023 08:55-0500 Systolic blood pressure 109 mm[Hg] Yfn Lavern Jr., DPM Work Phone: [facility] 07-04-2023 08:25-0500 Body temperature 98.2 [degF] Yfn Lavern Jr., DPM Work Phone: [facility] 07-04-2023 08:25-0500 Diastolic blood pressure 66 mm[Hg] Yfn Lavern Jr., DPM Work Phone: [facility] 07-04-2023 08:25-0500 Heart rate 92 /min Yfn Lavern Jr., DPM Work Phone: [facility] 07-04-2023 08:25-0500 Systolic blood pressure 100 mm[Hg] Yfn Lavern Jr., DPM Work Phone: [facility] 04-24-2023 11:26-0500 Body height 180.3 cm Ying Quispe DO Work Phone: [facility] 04-24-2023 11:26-0500 Body mass index (BMI) [Ratio] 19.54 kg/m2 Ying Quispe DO Work Phone: [facility] 04-24-2023 11:26-0500 Body temperature 97.9 [degF] Ying Quispe DO Work Phone: [facility] 04-24-2023 11:26-0500 Body weight 63.55 kg Ying Quispe DO Work Phone: [facility] 04-24-2023 11:26-0500 Diastolic blood pressure 68 mm[Hg] Ying Quispe DO Work Phone: [facility] 04-24-2023 11:26-0500 Heart rate 80 /min Ying Quispe DO Work Phone: [facility] 04-24-2023 11:26-0500 Respiratory rate 16 /min Ying Quispe DO Work Phone: [facility] 04-24-2023 11:26-0500 Systolic blood pressure 110 mm[Hg] Ying Quispe DO Work Phone: [facility] 01-25-2023 15:39-0400 Body height 180.3 cm Ying Quispe DO Work Phone: [facility] 01-25-2023 15:39-0400 Body mass index (BMI) [Ratio] 20.13 kg/m2 Ying Quispe DO Work Phone: [facility] 01-25-2023 15:39-0400 Body temperature 97.59 [degF] Ying Quispe DO Work Phone: [facility] 01-25-2023 15:39-0400 Body weight 65.45 kg Ying Quispe DO Work Phone: [facility] 01-25-2023 15:39-0400 Diastolic blood pressure 72 mm[Hg] Ying Quispe DO Work Phone: [facility] 01-25-2023 15:39-0400 Heart rate 72 /min Ying Quispe DO Work Phone: [facility] 01-25-2023 15:39-0400 Respiratory rate 18 /min Ying Quispe DO Work Phone: [facility] 01-25-2023 15:39-0400 SaO2% (BldA) [Mass fraction] 99 % Ying Quispe DO Work Phone: [facility] 01-25-2023 15:39-0400 Systolic blood pressure 132 mm[Hg] Ying Quispe DO Work Phone: [facility] 12-12-2022 09:32-0400 Body height 180.3 cm Lita Gu MD Work Phone: [facility] 12-12-2022 09:32-0400 Body mass index (BMI) [Ratio] 20.64 kg/m2 Lita Gu MD Work Phone: [facility] 12-12-2022 09:32-0400 Body temperature 98.1 [degF] Lita Gu MD Work Phone: [facility] 12-12-2022 09:32-0400 Body weight 67.13 kg Lita Gu MD Work Phone: [facility] 12-12-2022 09:32-0400 Diastolic blood pressure 84 mm[Hg] Lita Gu MD Work Phone: [facility] 12-12-2022 09:32-0400 Heart rate 93 /min Lita Gu MD Work Phone: [facility] 12-12-2022 09:32-0400 SaO2% (BldA) [Mass fraction] 97 % Lita Gu MD Work Phone: [facility] 12-12-2022 09:32-0400 Systolic blood pressure 130 mm[Hg] Lita Gu MD Work Phone: [facility] 11-28-2022 16:59-0400 Diastolic blood pressure 80 mm[Hg] Ying Quispe DO Work Phone: [facility] 11-28-2022 16:59-0400 Systolic blood pressure 146 mm[Hg] Ying Quispe DO Work Phone: [facility] 11-28-2022 16:12-0400 Body height 180.3 cm Ying Quispe DO Work Phone: [facility] 11-28-2022 16:12-0400 Body mass index (BMI) [Ratio] 21.27 kg/m2 Ying Quispe DO Work Phone: [facility] 11-28-2022 16:12-0400 Body temperature 98.29 [degF] Ying Quispe DO Work Phone: [facility] 11-28-2022 16:12-0400 Body weight 69.17 kg Ying Quispe DO Work Phone: [facility] 11-28-2022 16:12-0400 Heart rate 92 /min Ying Quispe DO Work Phone: [facility] 11-28-2022 16:12-0400 Respiratory rate 20 /min Ying Quispe DO Work Phone: [facility] 11-28-2022 16:12-0400 SaO2% (BldA) [Mass fraction] 99 % Ying Quispe DO Work Phone: [facility] 10-25-2022 10:32-0400 Body height 180.3 cm Lita Gu MD Work Phone: [facility] 10-25-2022 10:32-0400 Body mass index (BMI) [Ratio] 21.38 kg/m2 Lita Gu MD Work Phone: [facility] 10-25-2022 10:32-0400 Body temperature 98.71 [degF] Lita Gu MD Work Phone: [facility] 10-25-2022 10:32-0400 Body weight 69.54 kg Lita Gu MD Work Phone: [facility] 10-25-2022 10:32-0400 Diastolic blood pressure 78 mm[Hg] Lita Gu MD Work Phone: [facility] 10-25-2022 10:32-0400 Heart rate 86 /min Lita Gu MD Work Phone: [facility] 10-25-2022 10:32-0400 SaO2% (BldA) [Mass fraction] 94 % Lita Gu MD Work Phone: [facility] 10-25-2022 10:32-0400 Systolic blood pressure 137 mm[Hg] Lita uG MD Work Phone: [facility] 09-27-2022 09:03-0400 Body height 180.3 cm Lita Gu MD Work Phone: [facility] 09-27-2022 09:03-0400 Body mass index (BMI) [Ratio] 22.82 kg/m2 Lita Gu MD Work Phone: [facility] 09-27-2022 09:03-0400 Body temperature 98.4 [degF] Lita Gu MD Work Phone: [facility] 09-27-2022 09:03-0400 Body weight 74.21 kg Lita Gu MD Work Phone: [facility] 09-27-2022 09:03-0400 Diastolic blood pressure 84 mm[Hg] Lita Gu MD Work Phone: [facility] 09-27-2022 09:03-0400 Heart rate 95 /min Lita Gu MD Work Phone: [facility] 09-27-2022 09:03-0400 SaO2% (BldA) [Mass fraction] 95 % Lita Gu MD Work Phone: [facility] 09-27-2022 09:03-0400 Systolic blood pressure 144 mm[Hg] Lita Gu MD Work Phone: [facility] 08-15-2022 16:36-0400 Body height 180.3 cm Ying Quispe DO Work Phone: [facility] 08-15-2022 16:36-0400 Body mass index (BMI) [Ratio] 23.32 kg/m2 Ying Quispe DO Work Phone: [facility] 08-15-2022 16:36-0400 Body temperature 99.19 [degF] Ying Quispe DO Work Phone: [facility] 08-15-2022 16:36-0400 Body weight 75.84 kg Ying Quispe DO Work Phone: [facility] 08-15-2022 16:36-0400 Diastolic blood pressure 80 mm[Hg] Ying Quispe DO Work Phone: [facility] 08-15-2022 16:36-0400 Heart rate 88 /min Ying Quispe DO Work Phone: [facility] 08-15-2022 16:36-0400 Respiratory rate 14 /min Ying Quispe DO Work Phone: [facility] 08-15-2022 16:36-0400 Systolic blood pressure 138 mm[Hg] Ying Quispe DO Work Phone: [facility] 07-06-2022 08:34-0500 Body height 180.3 cm Lita Gu MD Work Phone: [facility] 07-06-2022 08:34-0500 Body mass index (BMI) [Ratio] 24.02 kg/m2 Lita Gu MD Work Phone: [facility] 07-06-2022 08:34-0500 Body temperature 98.2 [degF] Lita Gu MD Work Phone: [facility] 07-06-2022 08:34-0500 Body weight 78.11 kg Lita Gu MD Work Phone: [facility] 07-06-2022 08:34-0500 Diastolic blood pressure 83 mm[Hg] Lita Gu MD Work Phone: [facility] 07-06-2022 08:34-0500 Heart rate 92 /min Lita Gu MD Work Phone: [facility] 07-06-2022 08:34-0500 SaO2% (BldA) [Mass fraction] 94 % Lita Gu MD Work Phone: [facility] 07-06-2022 08:34-0500 Systolic blood pressure 133 mm[Hg] Lita Gu MD Work Phone: [facility] 06-13-2022 15:17-0500 Body height 180.3 cm Ying Quispe DO Work Phone: [facility] 06-13-2022 15:17-0500 Body mass index (BMI) [Ratio] 24.73 kg/m2 Ying Quispe DO Work Phone: [facility] 06-13-2022 15:17-0500 Body temperature 98.71 [degF] Ying Quispe DO Work Phone: [facility] 06-13-2022 15:17-0500 Body weight 80.42 kg Ying Quispe DO Work Phone: [facility] 06-13-2022 15:17-0500 Diastolic blood pressure 70 mm[Hg] Ying Quispe DO Work Phone: [facility] 06-13-2022 15:17-0500 Heart rate 72 /min Ying Quispe DO Work Phone: [facility] 06-13-2022 15:17-0500 Respiratory rate 18 /min Ying Quispe DO Work Phone: [facility] 06-13-2022 15:17-0500 Systolic blood pressure 132 mm[Hg] Ying Quispe DO Work Phone: [facility] 06-11-2022 09:40-0500 Body temperature 98.91 [degF] Shira Lopez MD Work Phone: [facility] 06-11-2022 09:40-0500 Diastolic blood pressure 74 mm[Hg] Shira Lopez MD Work Phone: [facility] 06-11-2022 09:40-0500 Heart rate 83 /min Shira Lopez MD Work Phone: [facility] 06-11-2022 09:40-0500 Respiratory rate 14 /min Shira Lopez MD Work Phone: [facility] 06-11-2022 09:40-0500 SaO2% (BldA) [Mass fraction] 96 % Shira Lopez MD Work Phone: [facility] 06-11-2022 09:40-0500 Systolic blood pressure 125 mm[Hg] Shira Lopez MD Work Phone: [facility] 06-10-2022 08:51-0500 Body height 180.3 cm Shira Lopez MD Work Phone: [facility] 06-10-2022 08:51-0500 Body mass index (BMI) [Ratio] 23.71 kg/m2 Shira Lopez MD Work Phone: [facility] 06-10-2022 08:51-0500 Body weight 77.11 kg Shira Lopez MD Work Phone: [facility] 06-06-2022 11:21-0500 Body height 179.7 cm Ying Quispe DO Work Phone: [facility] 06-06-2022 11:21-0500 Body mass index (BMI) [Ratio] 25.17 kg/m2 Ying Quispe DO Work Phone: [facility] 06-06-2022 11:21-0500 Body temperature 98.1 [degF] Ying Quispe DO Work Phone: [facility] 06-06-2022 11:21-0500 Body weight 81.28 kg Ying Quispe DO Work Phone: [facility] 06-06-2022 11:21-0500 Diastolic blood pressure 80 mm[Hg] Ying Quispe DO Work Phone: [facility] 06-06-2022 11:21-0500 Heart rate 80 /min Ying Quispe DO Work Phone: [facility] 06-06-2022 11:21-0500 Respiratory rate 16 /min Ying Quispe DO Work Phone: [facility] 06-06-2022 11:21-0500 Systolic blood pressure 130 mm[Hg] Ying Quispe DO Work Phone: [facility] 04-06-2022 11:17-0500 Body mass index (BMI) [Ratio] 25.06 kg/m2 Ying Quispe DO Work Phone: [facility] 04-06-2022 11:17-0500 Body temperature 98.49 [degF] Ying Quispe DO Work Phone: [facility] 04-06-2022 11:17-0500 Body weight 80.92 kg Ying Quispe DO Work Phone: [facility] 04-06-2022 11:17-0500 Diastolic blood pressure 76 mm[Hg] Ying Quispe DO Work Phone: [facility] 04-06-2022 11:17-0500 Heart rate 81 /min Ying Quispe DO Work Phone: [facility] 04-06-2022 11:17-0500 Respiratory rate 16 /min Ying Quispe DO Work Phone: [facility] 04-06-2022 11:17-0500 SaO2% (BldA) [Mass fraction] 96 % Ying Quispe DO Work Phone: [facility] 04-06-2022 11:17-0500 Systolic blood pressure 121 mm[Hg] Ying Quispe DO Work Phone: [facility] 01-05-2022 16:17-0400 Body height 179.7 cm Felicity Olson FR[employer] OFFICE SUPERVISOR Work Phone: [facility] 01-05-2022 16:17-0400 Body mass index (BMI) [Ratio] 25.73 kg/m2 Felicity Olson FR[employer] OFFICE SUPERVISOR Work Phone: [facility] 01-05-2022 16:17-0400 Body temperature 98.2 [degF] Felicity Olson FR[employer] OFFICE SUPERVISOR Work Phone: [facility] 01-05-2022 16:17-0400 Body weight 83.1 kg Felicity Olson FR[employer] OFFICE SUPERVISOR Work Phone: [facility] 01-05-2022 16:17-0400 Diastolic blood pressure 70 mm[Hg] Felicity Olson FR[employer] OFFICE SUPERVISOR Work Phone: [facility] 01-05-2022 16:17-0400 Heart rate 80 /min Felicity Olson FR[employer] OFFICE SUPERVISOR Work Phone: [facility] 01-05-2022 16:17-0400 Respiratory rate 16 /min Felicity Olson FR[employer] OFFICE SUPERVISOR Work Phone: [facility] 01-05-2022 16:17-0400 Systolic blood pressure 126 mm[Hg] Felicity Wesley FR[employer] OFFICE SUPERVISOR Work Phone: [facility] 11-25-2021 16:10-0400 Body temperature 98.4 [degF] Yfn Puckett Jr., DPM Work Phone: [facility] 11-25-2021 16:10-0400 Diastolic blood pressure 82 mm[Hg] Yfn Puckett Jr., DPM Work Phone: [facility] 11-25-2021 16:10-0400 Heart rate 78 /min Yfn Puckett Jr., DPM Work Phone: [facility] 11-25-2021 16:10-0400 Systolic blood pressure 136 mm[Hg] Yfn Puckett Jr., DPM Work Phone: [facility] 11-18-2021 08:01-0400 Body height 179.7 cm Ying Quispe DO Work Phone: [facility] 11-18-2021 08:01-0400 Body mass index (BMI) [Ratio] 26.69 kg/m2 Ying Quispe DO Work Phone: [facility] 11-18-2021 08:01-0400 Body temperature 98.29 [degF] Ying Quispe DO Work Phone: [facility] 11-18-2021 08:01-0400 Body weight 86.18 kg Ying Quispe DO Work Phone: [facility] 11-18-2021 08:01-0400 Diastolic blood pressure 70 mm[Hg] Ying Quispe DO Work Phone: [facility] 11-18-2021 08:01-0400 Heart rate 66 /min Ying Quispe DO Work Phone: [facility] 11-18-2021 08:01-0400 Respiratory rate 16 /min Ying Quispe DO Work Phone: [facility] 11-18-2021 08:01-0400 Systolic blood pressure 138 mm[Hg] Ying Quispe DO Work Phone: [facility] 06-21-2021 14:44-0500 Body height 179.7 cm Ying Quispe DO Work Phone: [facility] 06-21-2021 14:44-0500 Body mass index (BMI) [Ratio] 26.21 kg/m2 Ying Quispe DO Work Phone: [facility] 06-21-2021 14:44-0500 Body temperature 98.6 [degF] Ying Quispe DO Work Phone: [facility] 06-21-2021 14:44-0500 Body weight 84.64 kg Ying Quispe DO Work Phone: [facility] 06-21-2021 14:44-0500 Diastolic blood pressure 80 mm[Hg] Ying Quispe DO Work Phone: [facility] 06-21-2021 14:44-0500 Heart rate 86 /min Ying Quispe DO Work Phone: [facility] 06-21-2021 14:44-0500 Respiratory rate 16 /min Ying Quispe DO Work Phone: [facility] 06-21-2021 14:44-0500 Systolic blood pressure 126 mm[Hg] Ying Quispe DO Work Phone: [facility] 06-17-2021 16:11-0500 Body temperature 97.3 [degF] Yfn Puckett Jr., DPM Work Phone: [facility] 06-17-2021 16:11-0500 Diastolic blood pressure 84 mm[Hg] Yfn Puckett Jr., DPM Work Phone: [facility] 06-17-2021 16:11-0500 Heart rate 94 /min Yfn Puckett Jr., DPM Work Phone: [facility] 06-17-2021 16:11-0500 Systolic blood pressure 135 mm[Hg] Yfn Puckett Jr., DPM Work Phone: [facility] 05-12-2021 09:36-0500 Body height 179.7 cm Ying Quispe DO Work Phone: [facility] 05-12-2021 09:36-0500 Body mass index (BMI) [Ratio] 25.45 kg/m2 Ying Quispe DO Work Phone: [facility] 05-12-2021 09:36-0500 Body temperature 98.6 [degF] Ying Quispe DO Work Phone: [facility] 05-12-2021 09:36-0500 Body weight 82.19 kg Ying Quispe DO Work Phone: [facility] 05-12-2021 09:36-0500 Diastolic blood pressure 53 mm[Hg] Ying Quispe DO Work Phone: [facility] 05-12-2021 09:36-0500 Heart rate 78 /min Ying Quispe DO Work Phone: [facility] 05-12-2021 09:36-0500 Respiratory rate 16 /min Ying Quispe DO Work Phone: [facility] 05-12-2021 09:36-0500 Systolic blood pressure 93 mm[Hg] Ying Quispe DO Work Phone: [facility] 09-29-2020 13:32-0400 Diastolic blood pressure 85 mm[Hg] Bambi Huynh MD Work Phone: [facility] 09-29-2020 13:32-0400 Heart rate 74 /min Bambi Huynh MD Work Phone: [facility] 09-29-2020 13:32-0400 SaO2% (BldA) [Mass fraction] 93 % Bambi Huynh MD Work Phone: [facility] 09-29-2020 13:32-0400 Systolic blood pressure 138 mm[Hg] Bambi Huynh MD Work Phone: [facility] 09-29-2020 13:21-0400 Body height 182.9 cm Bambi Huynh MD Work Phone: [facility] 09-29-2020 13:21-0400 Body mass index (BMI) [Ratio] 26.65 kg/m2 Bambi Huynh MD Work Phone: [facility] 09-29-2020 13:21-0400 Body temperature 97.3 [degF] Bambi Huynh MD Work Phone: [facility] 09-29-2020 13:21-0400 Body weight 89.13 kg Bambi Huynh MD Work Phone: [facility] 12-06-2019 11:08-0400 BMI (Body Mass Index) 26.04 kg/m2 [facility] 12-06-2019 11:08-0400 Body Temperature 98.8 [degF] [facility] 12-06-2019 11:08-0400 Body weight 87.09 kg [facility] 12-06-2019 11:08-0400 Height 182.9 cm [facility] 12-06-2019 11:08-0400 Pulse (Heart Rate) 80 /min [facility] 12-06-2019 11:08-0400 Pulse Oximetry 96 % [facility] 12-06-2019 11:08-0400 Respiratory Rate 18 /min [facility] 03-25-2019 14:16-0400 BMI (Body Mass Index) 27.17 kg/m2 [facility] 03-25-2019 14:16-0400 Body Temperature 98.01 [degF] [facility] 03-25-2019 14:16-0400 Body weight 90.86 kg [facility] 03-25-2019 14:16-0400 BP Diastolic 83 mm[Hg] [facility] 03-25-2019 14:16-0400 BP Systolic 135 mm[Hg] [facility] 03-25-2019 14:16-0400 Height 182.9 cm [facility] 03-25-2019 14:16-0400 Pulse (Heart Rate) 82 /min [facility] 03-25-2019 14:16-0400 Pulse Oximetry 98 % [facility] 03-25-2019 14:16-0400 Respiratory Rate 17 /min [facility] 01-14-2019 13:48-0400 BMI (Body Mass Index) 26.28 kg/m2 [facility]-14-2019 13:48-0400 Body Temperature 98.4 [degF] [facility] 01-14-2019 13:48-0400 Body weight 87.91 kg [facility] 01-14-2019 13:48-0400 BP Diastolic 76 mm[Hg] [facility] 01-14-2019 13:48-0400 BP Systolic 130 mm[Hg] [facility] 01-14-2019 13:48-0400 Pulse (Heart Rate) 75 /min [facility] 01-14-2019 13:48-0400 Pulse Oximetry 96 % [facility] 10-12-2018 15:25-0400 BMI (Body Mass Index) 26.62 kg/m2 [facility] 10-12-2018 15:25-0400 Body Temperature 97.81 [degF] [facility] 10-12-2018 15:25-0400 BP Diastolic 91 mm[Hg] [facility] 10-12-2018 15:25-0400 BP Systolic 168 mm[Hg] [facility] 10-12-2018 15:25-0400 Height 182.9 cm [facility] 10-12-2018 15:25-0400 Pulse (Heart Rate) 78 /min [facility] 10-12-2018 15:25-0400 Pulse Oximetry 98 % [facility] 10-12-2018 15:25-0400 Weight 89.04 kg [facility] 09-15-2018 11:11-0400 Body Temperature 97.59 [degF] [facility] 09-15-2018 11:11-0400 BP Diastolic 79 mm[Hg] [facility] 09-15-2018 11:11-0400 BP Systolic 133 mm[Hg] [facility] 09-15-2018 11:11-0400 Pulse (Heart Rate) 61 /min [facility] 09-15-2018 11:11-0400 Pulse Oximetry 96 % [facility] 09-15-2018 11:11-0400 Respiratory Rate 16 /min [facility] 09-15-2018 01:32-0400 BMI (Body Mass Index) 26.76 kg/m2 [facility] 09-15-2018 01:32-0400 Height 182.9 cm [facility] 09-15-2018 01:32-0400 Weight 89.5 kg [facility] 09-14-2018 20:37-0400 Body Temperature 98.8 [degF] [facility] 09-14-2018 20:37-0400 BP Diastolic 83 mm[Hg] [facility] 09-14-2018 20:37-0400 BP Systolic 151 mm[Hg] [facility] 09-14-2018 20:37-0400 Pulse (Heart Rate) 82 /min [facility] 09-14-2018 20:37-0400 Pulse Oximetry 96 % [facility] 09-14-2018 20:37-0400 Respiratory Rate 20 /min [facility] 09-14-2018 17:33-0400 BMI (Body Mass Index) 26.45 kg/m2 [facility] 09-14-2018 17:33-0400 Height 182.9 cm [facility] 09-14-2018 17:33-0400 Weight 88.45 kg [facility] 09-14-2018 12:51-0400 BMI (Body Mass Index) 27 kg/m2 Bambi Huynh [facility] 09-14-2018 12:51-0400 Body Temperature 98.91 [degF] [facility] 09-14-2018 12:51-0400 BP Diastolic 86 mm[Hg] [facility] 09-14-2018 12:51-0400 BP Systolic 132 mm[Hg] [facility] 09-14-2018 12:51-0400 Height 182.9 cm [facility] 09-14-2018 12:51-0400 Pulse (Heart Rate) 94 /min [facility] 09-14-2018 12:51-0400 Pulse Oximetry 94 % [facility] 09-14-2018 12:51-0400 Weight 90.31 kg [facility] 2018 07:36-0500 BMI (Body Mass Index) 27.08 kg/m2 Bambi Huynh [facility] 2018 07:36-0500 Body Temperature 98.1 [degF] [facility] 2018 07:36-0500 BP Diastolic 79 mm[Hg] [facility] 2018 07:36-0500 BP Systolic 129 mm[Hg] [facility] 2018 07:36-0500 Height 182.9 cm [facility] 2018 07:36-0500 Pulse (Heart Rate) 79 /min [facility] 2018 07:36-0500 Pulse Oximetry 98 % [facility] 2018 07:36-0500 Weight 90.58 kg [facility] 09-05-2017 14:41-0400 BMI (Body Mass Index) 26.45 kg/m2 [facility] 09-05-2017 14:41-0400 Height 182.9 cm [facility] 09-05-2017 14:41-0400 Weight 88.45 kg [facility] 07-03-2017 07:48-0500 BMI (Body Mass Index) 26.89 kg/m2 [facility] Work Phone: 07-03-2017 07:48-0500 Body Temperature 98.1 [degF] [facility] Work Phone: 07-03-2017 07:48-0500 BP Diastolic 83 mm[Hg] [facility] Work Phone: 07-03-2017 07:48-0500 BP Systolic 149 mm[Hg] [facility] Work Phone: 07-03-2017 07:48-0500 Height 182.9 cm [facility] Work Phone: 07-03-2017 07:48-0500 Pulse (Heart Rate) 88 /min [facility] Work Phone: 07-03-2017 07:48-0500 Pulse Oximetry 98 % Bambi Huynh [facility] Work Phone: 07-03-2017 07:48-0500 Respiratory Rate 14 /min Bambi Huynh [facility] Work Phone: 07-03-2017 07:48-0500 Weight 89.95 kg Bambi Huynh [facility] Work Phone: Encounters Encounter Date Encounter Type Care Provider Facility Start: 11-05-[facility]24 [facility] Start: 11-04-2024 ambulatory [facility] Facility:[facility] Start: 10-30-2024 ambulatory [facility] Facility:[facility] Start: 09-23-2024 Dr. Millie Massey MD [facility] Start: 09-23-2024 End: 09-23-2024 ambulatory [facility] Facility:[facility] Start: 09-18-2024 End: 09-18-[address] Ethan Rodriguez MD Work Phone: [facility] Work Phone: Start: 09-18-2024 End: 09-18-2024 Dr. Millie Massey MD -[facility] Start: 09-18-2024 End: 09-18-2024 ambulatory [facility] Facility:[facility] Start: 09-16-2024 End: 09-16-[address] Ethan Rodriguez MD Work Phone: [facility] Work Phone: Start: 09-16-2024 End: 09-16-2024 Dr. Millie Massey MD -[facility] Start: 09-16-2024 End: 09-16-2024 ambulatory [facility] Facility:[facility] Start: 09-15-2024 End: 09-15-2024 Dr. Ethan Rodriguez MD Work Phone: -Emergency Department Work Phone: Start: 09-15-2024 End: 09-15-2024 Emergency department patient visit Dr. Ethan Rodriguez MD Work Phone: [facility] Work Phone: Start: 09-09-2024 Dr. Millie Massey MD [facility] Start: 09-09-2024 End: 09-09-2024 ambulatory Millie Alydla OLS Facility:[facility] Start: 09-02-2024 End: 09-02-2024 Dr. Millie Massey MD -[facility] Start: 09-02-2024 End: 09-02-2024 ambulatory Millie Gudla Facility:[facility] Start: 08-31-2024 End: 08-31-2024 Millie Massey MD -[facility] Work Phone: Start: 08-31-2024 End: 08-31-[address] Ethan Rodriguez MD Work Phone: [facility] Work Phone: Start: 08-29-2024 ambulatory Millie Alydla Facility:[facility] Start: 08-29-2024 Dr. Millie Massey MD [facility] Start: 08-28-2024 End: 08-28-[address] Ethan Rodriguez MD Work Phone: [facility] Work Phone: Start: 08-28-2024 End: 08-28-2024 Dr. Millie Massey MD -[facility] Start: 08-28-2024 End: 08-28-2024 ambulatory Millie Wileya Facility:[facility] Start: 08-26-2024 End: 08-26-[address] Ethan Rodriguez MD Work Phone: [facility] Work Phone: Start: 08-26-2024 End: 08-26-2024 Dr. Millie Massey MD -[facility] Start: 08-26-2024 End: 08-26-2024 ambulatory Millie Saurabha OLS Facility:[facility] Start: 08-23-2024 End: 08-23-2024 Documentation procedure Sol Huerta RN [facility] Start: 08-22-2024 End: 08-22-[address] Ethan Rodriguez MD Work Phone: [facility] Work Phone: Start: 08-22-2024 End: 08-22-2024 Dr. Millie Massey MD -[facility] Start: 08-22-2024 End: 08-22-[facility]24 [facility] Start: 08-19-2024 ambulatory [facility] Facility:[facility] Start: 08-19-2024 Dr. Millie Massey MD [facility] Start: 08-17-2024 Dr. Nikolas Magaña MD [facility] Work Phone: Start: 08-16-2024 Dr. Nikolas Magaña MD [facility] Work Phone: Start: 08-15-2024 Dr. Tevin Nicholas MD -[facility] Start: 08-15-2024 End: 08-15-2024 ambulatory Casi Topete RN [facility] Start: 08-15-2024 Svetlana MOORE -[facility] Start: 08-14-2024 ambulatory Angie Garcia ity:[facility] Start: 08-14-2024 End: 08-17-2024 Evaluation and management of inpatient Dr. Ethan Rodriguez MD Work Phone: [facility] Work Phone: Start: 08-14-2024 End: 08-17-2024 Dr. Nkiolas Magaña MD [facility] Work Phone: Start: 08-14-2024 End: 08-14-2024 ambulatory Ethan Rodriguez Facility:[facility] Start: 08-13-2024 Dr. Nikolas Magaña MD -[facility] Work Phone: Start: 08-12-2024 Dr. Nikolas Magaña MD [facility] Work Phone: Start: 08-11-2024 Dr. [...] Phone: Start: 08-05-2024 Dr. Ivone mccarty MD [facility] Work Phone: Start: 08-04-2024 Dr. Ivone mccarty MD [facility] Work Phone: Start: 08-03-2024 Dr. Mar chang MD [facility] Work Phone: Start: 08-03-2024 Nick Friend DO -[facility] Start: 08-02-2024 Nick Friend DO -[facility] Start: 08-02-2024 Dr. Mar chang MD [facility] Work Phone: Start: 08-01-2024 Nick Friend DO -[facility] Start: 08-01-2024 Dr. Kvng [facility] Work Phone: Start: 07-31-2024 ambulatory Angie Garcia ity:[facility] Start: 07-31-2024 End: 08-13-2024 Evaluation and management of inpatient Nikolas Magaña Facility:[facility] Start: 07-31-2024 End: 08-13-2024 Dr. Nikolas Magaña MD -[facility] Work Phone: Start: 07-30-2024 ambulatory Ethan Rodriguez Facility:[facility] Start: 07-30-2024 Dr. Millie Massey MD -[facility] Start: 07-29-2024 Dr. Mar chang MD -[facility] Work Phone: Start: 07-28-2024 Dr. [...] Gallegos DO -[facility] Start: 07-23-2024 ambulatory Ethan Rodriguez Facility[facility] Start: 07-23-2024 End: 07-29-2024 Evaluation and management of inpatient Mar Mead Facility:[facility] Start: 07-23-2024 End: 07-29-2024 Dr. Mar Mead MD -[facility] 3 Work Phone: Start: 07-18-2024 End: 07-18-2024 Emergency department patient visit Sheldon Toribio Facility:[facility] Start: 07-18-2024 End: 07-18-2024 Dr. [facility] Work Phone: Start: 07-18-2024 End: 07-18-2024 ambulatory Ethan Rodriguez Facility:[facility] Start: 07-03-2024 End: 07-03-2024 ambulatory Codie Garcia RN [facility] Comment on above: High Risk Outreach f or High Risk Start: 07-02-2024 End: 07-02-2024 ambulatory Codie Garcia RN [facility] Start: 06-25-2024 End: 06-25-2024 Dr. Millie Massey MD [facility] Start: 06-24-2024 End: 06-25-2024 ambulatory Ethan Rodriguez Facility:[facility] Start: 06-24-2024 Dr. Millie Massey MD [facility] Start: 06-21-2024 End: 06-21-2024 Dr. Millie Massey MD [facility] Start: 06-21-2024 End: 06-21-2024 ambulatory Millie RENE Facility:[facility] Start: 06-18-2024 ambulatory [facility] Start: 06-07-2024 End: 06-07-2024 Dr. Millie Massey MD [facility] Start: 06-07-2024 End: 06-07-2024 ambulatory Millie RENE Facility:[facility] Start: 06-06-2024 End: 06-06-2024 Dr. Mill[address] aMssey MD [facility] Start: 06-05-2024 End: 06-05-2024 Chioma BRIGGS -[facility] Work Phone: Start: 06-05-2024 End: 06-06-2024 ambulatory Millie RENE Facility:[facility] Start: 06-03-2024 End: 06-03-2024 Dr. Millie Massey MD [facility] Start: 06-03-2024 End: 06-03-2024 ambulatory Millie RENE Facility:[facility] Start: 05-27-2024 End: 05-27-2024 Dr. Millie Massey MD -[facility] Start: 05-27-2024 End: 05-27-2024 ambulatory Millie RENE Facility:[facility] Start: 05-23-2024 End: 05-23-2024 Orders Only Edenilson Guerra DO Work Phone: [facility] Comment on above: Abdominal aortic ane urysm (AAA) without rupture, unspecified part (HCC) (Primary Dx) Start: 05-03-2024 ambulatory Jeffery Veloz Facility :[facility] Start: 04-30-2024 End: 04-30-2024 Dr. Jeffery Veloz MD -[facility] Work Phone: Start: 04-30-2024 End: 04-30-2024 ambulatory Jeffery Veloz Facility[place] Start: 04-24-2024 ambulatory Ethan RENE Facili ty:[facility] Start: 04-24-2024 Ethan Rodriguez [facility] Start: 04-17-2024 ambulatory Ethan Rodriguez Facility:[facility] Start: 04-17-2024 End: 04-17-2024 Dr. Angie Torres MD -Laboratory, Specimen Work Phone: Start: 04-17-2024 End: 04-17-2024 ambulatory Ethan RENE Facility:[facility] Start: 04-12-2024 End: 04-12-2024 ambulatory Millie RENE Facility:[facility] Start: 04-11-2024 End: 04-11-2024 Emergency department patient visit Ethan Rodriguez Facility:[facility] Start: 04-05-2024 End: 04-05-2024 Documentation procedure Corrina Dawn MA [facility] Start: 04-05-2024 End: 04-05-2024 Refill Ying Quispe DO Work Phone: [facility] Start: 04-04-2024 End: 04-04-2024 Postop follow up visit related to original px Cate Contreras FRONT OFFICE SUPERVISOR Work Phone: [facility] Comment on above: 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) (Primary Dx) Start: 04-04-2024 End: 04-04-20[facility] Start: 03-26-2024 ambulatory Ethan Rodriguez OLS Facili ty:[facility] Start: 03-21-2024 ambulatory Ethan Rodriguez OLS Facili ty:[facility] Start: 03-12-2024 End: 03-20-2024 Evaluation and management of inpatient YING ZAHRA [facility] Start: 03-11-2024 End: 03-12-2024 Emergency department patient visit Ethan Rodriguez Facility:[facility] Start: 02-29-2024 End: 02-29-2024 ambulatory Ethan RENE Facility:[facility] Start: 02-16-2024 End: 02-16-2024 Refill Yingsam Quispe Work Phone: [facility] Comment on above: Hypothyroidism, unsp ecified type Start: 01-19-2024 End: 02-25-2024 Evaluation and management of inpatient [facility] Start: 01-17-2024 End: 01-17-2024 Documentation procedure Rafaela Garcias RN [facility] Start: 01-11-2024 End: 01-11-2024 Documentation procedure Rafaela Garcias RN [facility] Start: 01-11-2024 [facility] Start: 01-09-2024 End: 01-09-2024 Postop follow up visit related to original px Sarath Rey MD Work Phone: [facility] Comment on above: 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) (Primary Dx) Start: 01-09-2024 End: 01-09-2024 [facility] Start: 01-09-2024 End: 01-09-2024 ambulatory SARATH REY [facility] Start: 01-08-2024 End: 01-08-2024 Refill Ray Guido RN [facility] Comment on above: Medication Refill 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) (Primary Dx); Elevated serum creatinine Start: 01-05-2024 End: 01-05-2024 Orders Only Ray Guido RN [facility] Comment on above: 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) (Primary Dx); Postoperative leak Start: 01-03-2024 End: 01-03-2024 Anticoagulant drug monitoring Michelle Littlejohn RPh,PharmD Work Phone: [facility] Start: 01-03-2024 End: 01-03-2024 Patient encounter procedure Lita Gu MD Work Phone: [facility] Comment on above: Acute deep vein thro mbosis (DVT) of axillary vein of left upper extremity (HCC) (Primary Dx) Start: 01-03-2024 End: 01-03-2024 Home visit Makenzie Garza RN [facility] Comment on above: SN HH NON-OASIS AGEN CY DISCHARGE Start: 01-03-2024 End: 01-08-2024 ambulatory [facility] Start: 01-02-2024 End: 01-02-2024 Home visit Makenzie Garza RN [facility] Comment on above: TELEPHONE ENCOUNTER Start: 12-27-2023 End: 12-27-2023 Anticoagulant drug monitoring Michelle Littlejohn RPh,PharmD Work Phone: [facility] Start: 12-27-2023 End: 12-27-2023 Patient encounter procedure Lita Gu MD Work Phone: [facility] Comment on above: Acute deep vein thro mbosis (DVT) of axillary vein of left upper extremity (HCC) (Primary Dx) Start: 12-27-2023 End: 12-28-2023 Home visit Nahid Lindsay PT [facility] Comment on above: PT NON-OASIS AGENCY DISCHARGE PAINTER SPRAY HH ROUTINE Start: 12-27-2023 End: 12-31-2023 ambulatory [facility] Start: 12-26-2023 End: 12-26-2023 Postop follow up visit related to original px Sarath Rey MD Work Phone: [facility] Comment on above: PVD (peripheral vasc ular disease) (HCC) (Primary Dx); 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); Renal insufficiency Start: 12-26-2023 End: 12-26-2023 ambulatory SARATH REY [facility] Start: 12-25-2023 End: 12-25-2023 Home visit N[facility] Comment on above: INSULATION AND FLOORING ASSEMBLER ROUTINE VISIT Start: 12-21-2023 End: 12-25-2023 Transcribe Orders Michelle Littlejohn RPh,PharmD Work Phone: [facility] Comment on above: Acute deep vein thro mbosis (DVT) of axillary vein of left upper extremity (HCC) (Primary Dx) Start: 12-20-2023 End: 12-20-2023 [address] visit [address]ilene Albright [facility] Comment on above: PAINTER SPRAY ROUTINE INSULATION AND FLOORING ASSEMBLER ROUTINE VISIT Start: 12-20-2023 ambulatory [facility] Start: 12-18-2023 End: 12-18-2023 Home visit Ernestina Moody [facility] Comment on above: INSULATION AND FLOORING ASSEMBLER ROUTINE VISIT Start: 12-14-2023 End: 12-14-2023 Home visit Ernestina Moody [facility] Comment on above: INSULATION AND FLOORING ASSEMBLER ROUTINE VISIT Start: 12-13-2023 End: 12-13-2023 Anticoagulant drug monitoring Michelle Littlejohn RPh,PharmD Work Phone: [facility] Start: 12-13-2023 End: 12-13-2023 Patient encounter procedure Lita Gu MD Work Phone: [facility] Comment on above: Acute deep vein thro mbosis (DVT) of axillary vein of left upper extremity (HCC) (Primary Dx) Start: 12-13-2023 End: 12-13-2023 Home visit Makenzie Garza RN [facility] Comment on above: SN HH ROUTINE VISIT INSULATION AND FLOORING ASSEMBLER ROUTINE VISIT Start: 12-13-2023 End: 12-17-2023 ambulatory YING JACINTOWELL [facility] Start: 12-11-2023 End: 12-11-2023 ambulatory TYLOR KRUGER [facility] Start: 12-10-2023 End: 12-10-2023 Home visit Ernestina Moody [facility] Comment on above: CASE COMMUNICATION Start: 12-06-2023 End: 12-10-2023 Refill Tylor Kruger MD Work Phone: [facility] Comment on above: Medication Refill Acute deep vein thro mbosis (DVT) of axillary vein of left upper extremity (HCC) (Primary Dx) SN ROUTINE VISIT PT REASSESSMENT Start: 12-05-2023 End: 12-05-2023 Home visit Ernestina Moody [facility] Comment on above: INSULATION AND FLOORING ASSEMBLER ROUTINE VISIT Start: 11-29-2023 End: 11-29-2023 Anticoagulant drug monitoring Adilene [facility],PharmD Work Phone: [facility] Start: 11-29-2023 End: 11-29-2023 Patient encounter procedure Lita Gu MD Work Phone: [facility] Comment on above: Acute deep vein thro mbosis (DVT) of axillary vein of left upper extremity (HCC) (Primary Dx) Start: 11-29-2023 End: 11-29-2023 Home visit Ernestina Moody [facility] Comment on above: INSULATION AND FLOORING ASSEMBLER ROUTINE VISIT PAINTER SPRAY ROUTINE OT NON-OASIS/DISCIPL INE DISCHARGE Start: 11-29-2023 End: 12-03-2023 ambulatory ADILENE Alfred [facility] Start: 11-28-2023 End: 11-28-2023 ambulatory ABIGAIL [facility] Start: 11-28-2023 End: 11-28-2023 Home visit Ernestina Moody [facility] Comment on above: INSULATION AND FLOORING ASSEMBLER ROUTINE VISIT Start: 11-27-2023 End: 11-27-2023 Home visit Giovany Montalvo [facility] Comment on above: COLEMAN ROUTINE VISIT Start: 11-24-2023 End: 11-24-2023 Home visit Giovany Princeez ALANNA [facility] Comment on above: COLEMAN ROUTINE VISIT Start: 11-23-2023 End: 11-23-2023 Office outpatient visit 25 minutes Ying Quispe DO Work Phone: [facility] Comment on above: Orthostatic hypotens ion (Primary Dx); General weakness Start: 11-23-2023 End: 11-23-2023 ambulatory YING QUISPE [facility] Start: 11-23-2023 End: 11-23-2023 Home visit Giovany MONDRAGON [facility] Comment on above: COLEMAN ROUTINE VISIT INSULATION AND FLOORING ASSEMBLER ROUTINE VISIT Start: 11-22-2023 End: 11-22-2023 [facility] Comment on above: Ischemia of toe (Vikki farrukh Dx); PVD (peripheral vascular disease) (HCC) Start: 11-22-2023 End: 11-22-2023 ambulatory [facility] Start: 11-21-2023 End: 11-25-2023 Orders Only Tylor Kruger MD Work Phone: [facility] Comment on above: PVD (peripheral vasc ular disease) (HCC) (Primary Dx) Acute deep vein thro mbosis (DVT) of axillary vein of left upper extremity (HCC) (Primary Dx) PAINTER SPRAY HH ROUTINE INSULATION AND FLOORING ASSEMBLER ROUTINE VISIT Start: 11-20-2023 End: 11-20-2023 Refill Ying Quispe DO Work Phone: [facility] Start: 11-17-2023 End: 11-17-2023 Home visit Giovanyjett MONDRAGON [facility] Comment on above: COLEMAN ROUTINE VISIT Start: 11-17-2023 End: 11-17-2023 Office outpatient visit 25 minutes Tylor Kruger MD Work Phone: [facility] Comment on above: 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) (Primary Dx); PVD (peripheral vascular disease) (HCC) Start: 11-17-2023 End: 11-[facility] Start: 11-16-2023 End: 11-16-2023 Home visit Ernestina Moody [facility] Comment on above: INSULATION AND FLOORING ASSEMBLER ROUTINE VISIT Start: 11-16-2023 End: 11-16-2023 ambulatory [facility] Start: 11-14-2023 End: 11-14-2023 Anticoagulant drug monitoring Adilene Bryan [facility],PharmD Work Phone: [facility] Start: 11-14-2023 End: 11-14-2023 Patient encounter procedure Lita Gu MD Work Phone: [facility] Comment on above: Acute deep vein thro mbosis (DVT) of axillary vein of left upper extremity (HCC) (Primary Dx) Start: 11-14-2023 End: 11-14-2023 Home visit Adilene Albright [facility] Comment on above: CLARA ROUTINE PT INITIAL EVALUATIO N Start: 11-14-2023 End: 11-18-2023 ambulatory ADILENE BRYAN [facility] Start: 11-13-2023 End: 11-13-2023 Home visit Giovany Montalvo [facility] Comment on above: COLEMAN ROUTINE VISIT Start: 11-08-2023 End: 11-08-2023 Anticoagulant drug monitoring Michelle Littlejohn [facility],PharmD Work Phone: [facility] Start: 11-08-2023 End: 11-08-2023 Patient encounter procedure Lita Gu MD Work Phone: [facility] Comment on above: Acute deep vein thro mbosis (DVT) of axillary vein of left upper extremity (HCC) (Primary Dx) Start: 11-08-2023 End: 11-12-2023 ambulatory YING SWEENEY [facility] Start: 11-08-2023 End: 11-08-2023 Home visit Antonietta Monk [facility] Comment on above: PAINTER SPRAY HH ROUTINE OT INITIAL EVALUATIO N Start: 11-06-2023 End: 11-06-2023 Home visit Makenzie Brown RN [facility] Comment on above: SN HH NON-OASIS SOC Start: 11-06-2023 ambulatory LITA GU [facility] Start: 11-03-2023 Documentation procedure Rafaela Garcias RN [facility] Start: 11-03-2023 Home visit Justine Kruger [facility] Comment on above: CASE COMMUNICATION Start: 11-02-2023 ambulatory BRONWYN N [facility] Comment on above: Hypertension, unspec ified type (Primary Dx); Orthostatic hypotension; TUTU (acute kidney injury) (HCC); Debility; Ruptured abdominal aortic aneurysm (AAA), unspecified part (HCC); Aftercare following surgery of the circulatory system Start: 11-01-2023 End: 11-01-2023 Postop follow up visit related to original px Cate Contreras FRONT OFFICE SUPERVISOR Work Phone: [facility] Comment on above: 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) (Primary Dx) Start: 11-01-2023 End: 11-01-2023 ambulatory CATE CONTRERAS [facility] Start: 11-01-2023 End: 01-03-2024 ambulatory PCP UNKNOWN PHYSICIAN [facility] Start: 10-31-2023 ambulatory PCP UNKNOWN PHYSICIAN [facility] Start: 10-30-2023 ambulatory PCP UNKNOWN PHYSICIAN [facility] Start: 10-29-2023 ambulatory PCP UNKNOWN PHYSICIAN [facility] Start: 10-29-2023 ambulatory PCP UNKNOWN PHYSICIAN [facility] Start: 10-28-2023 ambulatory BRONWYN N [facility] Start: 10-27-2023 ambulatory BRONWYN N [facility] Start: 10-26-2023 ambulatory PCP UNKNOWN PHYSICIAN [facility] Start: 10-25-2023 ambulatory [facility]CP UNKNOWN PHYSICIAN [facility] Start: 10-25-2023 ambulatory BRONWYN N [facility] Start: 10-24-2023 ambulatory BRONWYN N [facility] Start: 10-23-2023 ambulatory BRONWYN N GRESSER [facility] Start: 10-23-2023 Encounter for genera l adult medical examination without abnormal findings FRANK~[id number] ALLEN MARIE [facility] Start: 10-21-2023 ambulatory PCP UNKNOWN PHYSICIAN [facility] Start: 10-11-2023 Documentation procedure Yakelin Iqbal MA [facility] Comment on above: Ruptured abdominal a ortic aneurysm (AAA), unspecified part (HCC) (Primary Dx) Start: 10-09-2023 End: 10-20-2023 Evaluation and management of inpatient [facility] Start: 10-09-2023 End: 10-09-2023 Emergency department patient visit KITTYMYKE IRAHETA [facility] Start: 10-09-2023 End: 10-09-2023 ambulatory THERESA MCGOWAN [facility] Start: 10-09-2023 ambulatory YING QUISPE [facility] Start: 09-28-2023 Refill Ying barber DO Work Phone: [facility] Comment on above: Hypothyroidism, unsp ecified type Start: 09-26-2023 End: 09-26-2023 Office outpatient visit 15 minutes Felicity Olson [facility] Work Phone: [facility] Comment on above: Acute right-sided lo w back pain without sciatica (Primary Dx) Start: 09-26-2023 End: 09-26-2023 ambulatory FELICITY OLSON [facility] Start: 09-07-2023 End: 09-07-2023 Anticoagulant drug monitoring Michelle Littlejohn RP,PharmD Work Phone: [facility] Start: 09-07-2023 End: 09-07-2023 Patient encounter procedure Lita Gu MD Work Phone: [facility] Comment on above: Acute deep vein thro mbosis (DVT) of axillary vein of left upper extremity (HCC) (Primary Dx) Start: 09-07-2023 End: 09-11-2023 [facility] Start: 08-24-2023 End: 08-24-2023 Office outpatient new 30 minutes Yfn Puckett DPM Work Phone: [facility] Comment on above: Weakness of right lo wer extremity (Primary Dx); Lumbosacral radiculopathy; Paresthesias Start: 08-24-2023 End: 08-24-2023 ambulatory THERESA BOYKIN [facility] Start: 08-10-2023 End: 08-10-2023 Anticoagulant drug monitoring Michelle Littlejohn RP,PharmD Work Phone: [facility] Start: 08-10-2023 End: 08-10-2023 Patient encounter procedure Lita Gu MD Work Phone: [facility] Comment on above: Acute deep vein thro mbosis (DVT) of axillary vein of left upper extremity (HCC) (Primary Dx) Start: 08-10-2023 End: 08-14-2023 ambulatory [facility] Start: 07-18-2023 End: 07-18-2023 Office outpatient visit 25 minutes Yfn Puckett DPM Work Phone: [facility] Comment on above: Lumbosacral radiculo yanna (Primary Dx) Start: 2023 End: 2023 ambulatory YFN PUCKETT JR. [facility] Start: 07-13-2023 End: 07-13-2023 Anticoagulant drug monitoring Justine Hodges RP,PharmD Work Phone: [facility] Start: 07-13-2023 End: 07-13-2023 Patient encounter procedure Lita Gu MD Work Phone: [facility] Comment on above: Acute deep vein thro mbosis (DVT) of axillary vein of left upper extremity (HCC) (Primary Dx) Start: 07-13-2023 End: 2023 ambulatory [facility] Start: 07-04-2023 End: 07-04-2023 ambulatory YFN PUCKETT JR. [facility] Start: 07-04-2023 End: 07-04-2023 Office outpatient new 30 minutes Yfn Dillon DPM Work Phone: [facility] Comment on above: Right-sided low back pain with right-sided sciatica, unspecified chronicity (Primary Dx); Idiopathic peripheral neuropathy Start: 06-19-2023 Refill Stephanie Lozano RN [facility] Comment on above: History of deep veno us thrombosis Start: 06-07-2023 End: 06-07-2023 Anticoagulant drug monitoring Adilene Bryan RPh,PharmD Work Phone: [facility] Start: 06-07-2023 End: 06-07-2023 Patient encounter procedure Lita Gu MD Work Phone: [facility] Comment on above: Acute deep vein thro mbosis (DVT) of axillary vein of left upper extremity (HCC) (Primary Dx) Start: 05-23-2023 Refill Kenna Vigil RN [facility] Comment on above: History of deep veno us thrombosis Start: 05-03-2023 End: 05-03-2023 Anticoagulant drug monitoring Adilene Bryan RPh,PharmD Work Phone: [facility] Start: 05-03-2023 End: 05-03-2023 Patient encounter procedure Lita Gu MD Work Phone: [facility] Comment on above: Acute deep vein thro mbosis (DVT) of axillary vein of left upper extremity (HCC) (Primary Dx) Start: 04-24-2023 End: 04-24-2023 Office outpatient visit 15 minutes Ying Quispe DO Work Phone: [facility] Comment on above: Hypothyroidism, unsp ecified type (Primary Dx) Start: 04-05-2023 End: 04-05-2023 Anticoagulant drug monitoring Michelle Littlejohn RPh,PharmD Work Phone: [facility] Start: 04-05-2023 End: 04-05-2023 Patient encounter procedure Lita Gu MD Work Phone: [facility] Comment on above: Acute deep vein thro mbosis (DVT) of axillary vein of left upper extremity (HCC) (Primary Dx) Start: 03-08-2023 End: 03-08-2023 Anticoagulant drug monitoring Michelle Littlejohn RPh,PharmD Work Phone: [facility] Start: 03-08-2023 End: 03-08-2023 Patient encounter procedure iLta Gu MD Work Phone: [facility] Comment on above: Acute deep vein thro mbosis (DVT) of axillary vein of left upper extremity (HCC) (Primary Dx) Start: 02-15-2023 End: 02-15-2023 Anticoagulant drug monitoring Adilene Bryan RPh,PharmD Work Phone: [facility] Start: 02-15-2023 End: 02-15-2023 Patient encounter procedure Lita Gu MD Work Phone: [facility] Comment on above: Acute deep vein thro mbosis (DVT) of axillary vein of left upper extremity (HCC) (Primary Dx) Start: 02-13-2023 End: 02-13-2023 ambulatory [facility] Start: 02-01-2023 End: 02-01-2023 Anticoagulant drug monitoring Michelle Littlejohn RPh,PharmD Work Phone: [facility] Start: 02-01-2023 End: 02-01-2023 Patient encounter procedure Lita Gu MD Work Phone: [facility] Comment on above: Acute deep vein thro mbosis (DVT) of axillary vein of left upper extremity (HCC) (Primary Dx) Start: 01-25-2023 End: 01-25-2023 Office outpatient visit 25 minutes Ying Quispe Work Phone: [facility] Comment on above: Hypothyroidism, unsp ecified type (Primary Dx); Familial hypercholesteremia; Encounter for screening mammogram for malignant neoplasm of breast Start: 01-16-2023 End: 01-16-2023 Anticoagulant drug monitoring Lavon Mcmullen RPalysa,PharmD Work Phone: [facility] Start: 01-16-2023 End: 01-16-2023 Patient encounter procedure Lita Gu MD Work Phone: [facility] Comment on above: Acute deep vein thro mbosis (DVT) of axillary vein of left upper extremity (HCC) (Primary Dx) Start: 01-09-2023 End: 01-09-2023 Anticoagulant drug monitoring Adilene Bryan RPh,PharmD Work Phone: [facility] Start: 01-09-2023 End: 01-09-2023 Patient encounter procedure Lita Gu MD Work Phone: [facility] Comment on above: Acute deep vein thro mbosis (DVT) of axillary vein of left upper extremity (HCC) (Primary Dx) Start: 01-02-2023 End: 01-02-2023 Anticoagulant drug monitoring Michelle Littlejohn RPh,PharmD Work Phone: [facility] Start: 01-02-2023 End: 01-02-2023 Patient encounter procedure Lita Gu MD Work Phone: [facility] Comment on above: Acute deep vein thro mbosis (DVT) of axillary vein of left upper extremity (HCC) (Primary Dx) Start: 12-26-2022 End: 12-26-2022 Anticoagulant drug monitoring Adilene Bryan RPh,PharmD Work Phone: [facility] Start: 12-26-2022 End: 12-26-2022 Patient encounter procedure Lita Gu MD Work Phone: [facility] Comment on above: Acute deep vein thro mbosis (DVT) of axillary vein of left upper extremity (HCC) (Primary Dx) Start: 12-19-2022 End: 12-19-2022 Anticoagulant drug monitoring Michelle Littlejohn [facility],PharmD Work Phone: [facility] Start: 12-19-2022 End: 12-19-2022 Patient encounter procedure Lita Gu MD Work Phone: [facility] Comment on above: Acute deep vein thro mbosis (DVT) of axillary vein of left upper extremity (HCC) (Primary Dx) Start: 12-12-2022 Refill Kenna Vigil RN [facility] Comment on above: History of deep veno us thrombosis (Primary Dx) Start: 12-12-2022 End: 12-12-2022 Office outpatient visit 25 minutes Lita Gu MD Work Phone: [facility] Comment on above: History of deep veno us thrombosis (Primary Dx); Reactive lymphadenopathy; Factor V Leiden mutation (HCC) Start: 12-01-2022 End: 12-01-2022 Clinical Support Jennifer Hernandez MA [facility] Comment on above: Hyperlipidemia, unsp ecified hyperlipidemia type [E78.5] (Primary Dx) Start: 11-28-2022 End: 11-28-2022 Office outpatient visit 25 minutes Ying Quispe DO Work Phone: [facility] Comment on above: Acute non-recurrent maxillary sinusitis (Primary Dx); Familial hypercholesteremia Start: 10-25-2022 End: 10-25-2022 Office outpatient visit 25 minutes Lita Gu MD Work Phone: [facility] Comment on above: History of deep veno us thrombosis (Primary Dx); Axillary lymphadenopathy; Factor V Leiden mutation (HCC) Start: 10-23-2022 Refill Ying barber DO Work Phone: [facility] Comment on above: Hypothyroidism, unsp ecified type Start: 09-27-2022 Refill Kenna Vigil RN [facility] Comment on above: Acute deep vein thro mbosis (DVT) of axillary vein of left upper extremity (HCC) Start: 09-27-2022 End: 09-27-2022 Office outpatient visit 25 minutes Lita Gu MD Work Phone: [facility] Comment on above: History of deep veno us thrombosis (Primary Dx); Current smoker; Transaminitis; Factor V Leiden mutation (HCC); Lymphadenopathy; Decreased muscle strength; Lung nodule seen on imaging study Start: 09-20-2022 Coordination of care plan Amalia barbosa Patient Navigator Start: 09-16-2022 Refill Kenna Vigil RN [facility] Comment on above: Acute deep vein thro mbosis (DVT) of axillary vein of left upper extremity (HCC) Start: 08-15-2022 End: 08-15-2022 Office outpatient visit 25 minutes Ying Quispe DO Work Phone: [facility] Comment on above: Acute deep vein thro mbosis (DVT) of axillary vein of left upper extremity (HCC) (Primary Dx) Start: 07-06-2022 End: 07-06-2022 Office consultation new/estab patient 60 min Ying Quispe DO Work Phone: [facility] Comment on above: Current smoker (Prim howard Dx); Acute deep vein thrombosis (DVT) of axillary vein of left upper extremity (HCC); Cigarette smoker; Screening for malignant neoplasm of respiratory organ Start: 06-13-2022 End: 06-13-2022 Office outpatient visit 25 minutes Ying Quispe DO Work Phone: [facility] Comment on above: Acute deep vein thro mbosis (DVT) of axillary vein of left upper extremity (HCC) (Primary Dx) Start: 06-10-2022 End: 06-11-2022 Emergency department patient visit Shira Lopez MD Work Phone: [facility] Start: 06-06-2022 End: 06-06-2022 Office outpatient visit 25 minutes Ying Quispe DO Work Phone: [facility] Comment on above: Raynaud's phenomenon without gangrene (Primary Dx); Hypothyroidism, unspecified type Start: 04-06-2022 End: 04-06-2022 Office outpatient visit 15 minutes Ying Quispe DO Work Phone: [facility] Comment on above: Acute non-recurrent maxillary sinusitis (Primary Dx) Start: 01-05-2022 End: 01-05-2022 Office outpatient visit 15 minutes Felicity Olson FRONT OFFICE SUPERVISOR Work Phone: [facility] Comment on above: Toe infection (Prima ry Dx) Start: 11-25-2021 End: 11-25-2021 Office outpatient visit 15 minutes Yfn Puckett DPM Work Phone: [facility] Comment on above: Idiopathic periphera l neuropathy (Primary Dx) Start: 11-18-2021 End: 11-18-2021 Patient encounter status Ying Zahra Quispe DO Work Phone: [facility] Start: 11-18-2021 End: 11-18-2021 Periodic preventive med est patient 40-64yrs Ying Quispe DO Work Phone: [facility] Comment on above: Routine general medi cherrie examination at a health care facility (Primary Dx); Post-menopause; Encounter for screening mammogram for malignant neoplasm of breast; Colon cancer screening; Hypothyroidism, unspecified type Start: 11-05-2021 Refill Ying barber DO Work Phone: [facility] Comment on above: Hypothyroidism, unsp ecified type Start: 06-21-2021 End: 06-21-2021 Office outpatient visit 25 minutes Ying Quispe DO Work Phone: [facility] Comment on above: Acute non-recurrent maxillary sinusitis (Primary Dx) Start: 06-17-2021 End: 06-17-2021 Office outpatient new 30 minutes Yfn Puckett DPM Work Phone: [facility] Comment on above: Ganglion cyst of lef t foot (Primary Dx); Plantar fascial fibromatosis of left foot; Plantar keratosis, acquired Start: 05-12-2021 End: 05-12-2021 Office outpatient visit 25 minutes Ying Quispe DO Work Phone: [facility] Comment on above: Hypothyroidism, unsp ecified type (Primary Dx); Hyperlipidemia, unspecified hyperlipidemia type Start: 09-29-2020 End: 09-29-2020 Office outpatient visit 25 minutes Bambi Huynh MD Work Phone: [facility] Comment on above: Hypothyroidism, unsp ecified type (Primary Dx); Hip pain Start: 09-28-2020 End: 09-28-2020 Orders Only Bambi Huynh MD Work Phone: [facility] Comment on above: Hypothyroidism, unsp ecified type (Primary Dx) Start: 08-12-2020 End: 08-12-2020 Orders Only Daisy Maldonadozonia Cosme Work Phone: [facility] Start: 07-29-2020 Refill Bambi Huynh MD Work Phone: [facility] Start: 12-06-2019 End: 12-06-2019 Patient encounter procedure BAMBI HUYNH [facility] Start: 12-06-2019 End: 12-06-2019 Office outpatient visit 25 minutes Rebeca Kaur Work Phone: [facility] Comment on above: Close Exposure to Co vid-19 Virus (Primary Dx); Cough; Wheezing; Cigarette Smoker; Upper respiratory tract infection, unspecified type Start: 05-01-2019 End: 05-01-2019 Patient encounter procedure Bambi Huynh Work Phone: [facility] Comment on above: Bilateral hip pain Start: 04-29-2019 End: 04-29-2019 Patient encounter procedure Bambi Huynh Work Phone: [facility] Comment on above: Bilateral hip pain Start: 04-24-2019 End: 04-24-2019 Patient encounter procedure Bambi Huynh Work Phone: [facility] Comment on above: Bilateral hip pain Start: 04-22-2019 End: 04-22-2019 Patient encounter procedure Bambi Huynh Work Phone: [facility] Comment on above: Bilateral hip pain Start: 04-17-2019 End: 04-17-2019 Patient encounter procedure Bambi Huynh Work Phone: [facility] Comment on above: Bilateral hip pain Start: 04-15-2019 End: 04-15-2019 Patient encounter procedure Bambi Huynh Work Phone: [facility] Comment on above: Bilateral hip pain Start: 04-08-2019 End: 04-08-2019 Patient encounter procedure Bambi Huynh Work Phone: [facility] Comment on above: Hip pain, bilateral; Bilateral hip pain Start: 03-25-2019 End: 03-25-2019 Office outpatient visit 15 minutes Bambi Lange Claus Work Phone: [facility] Comment on above: Hypothyroidism, unsp ecified type (Primary Dx); Hip pain, bilateral Start: 01-14-2019 End: 01-14-2019 Office outpatient visit 25 minutes Bambi Huynh Work Phone: [facility] Comment on above: Hypothyroidism, unsp ecified type (Primary Dx); Hyperlipidemia, unspecified hyperlipidemia type; Hip pain, bilateral Start: 11-06-2018 End: 11-06-2018 Postop follow up visit related to original px Mendez Roy Work Phone: [facility] Comment on above: Trochanteric bursiti s of right hip (Primary Dx) Start: 10-12-2018 End: 10-12-2018 Postop follow up visit related to original px Татьяна Jenkins Work Phone: [facility] Comment on above: S/P appendectomy (Pr imary Dx) Start: 09-14-2018 End: 09-15-2018 Emergency department patient visit Rosendo Tyson Work Phone: [facility] Comment on above: Acute appendicitis, unspecified acute appendicitis type (Primary Dx); Acute appendicitis with localized peritonitis and gangrene, without perforation or abscess Start: 09-14-2018 End: 09-14-2018 Emergency department patient visit Dewayne Barlow Work Phone: [facility] Emergency Department Comment on above: Acute appendicitis, unspecified acute appendicitis type (Primary Dx) Start: 09-14-2018 End: 09-14-2018 Documentation procedure Bambi Nazario Huynh Work Phone: [facility] Start: 09-14-2018 End: 09-14-2018 Office outpatient visit 25 minutes Bambi Nazario Claus Work Phone: [facility] Comment on above: Right lower quadrant abdominal pain (Primary Dx); Dysuria Start: 2018 End: 2018 Office outpatient visit 25 minutes Bambi Nazario Maresinger Work Phone: [facility] Comment on above: Chronic left hip mehrdad n (Primary Dx); Hypothyroidism, unspecified type; Hyperlipidemia, unspecified hyperlipidemia type Start: 09-28-2017 Ambulatory Bambi Lange Claus Facility:[place] Start: 09-28-2017 End: 09-28-2017 Ambulatory Bambi Nazario Huynh Work Phone: [facility] Start: 09-05-2017 Office/outpatient vi sit, new, level 3 Bambi Huynh Work Phone: [facility] Start: 07-20-2017 Ambulatory Cuauhtemoc Barrios Work Phone: [facility] Start: 07-03-2017 Office/outpatient vi sit, est, level 3 Bambi Huynh Work Phone: [facility] Procedures Date Procedure [...] MD Work Phone: Start: 08-12-2024 Antibody screen Nikolas Gómez Comment on above: Order Comment: CMV NEG? NNumber of units to transfuse: 1Reason for Ordering Blood: AcuteAre the blood/blood products to be transfused? YIs the patient having/had surgery? NNWhen ReadyNYA Result Comment: AMENDED REPORT 08/12/24 1425: ANTIBODY SCREEN previously reported as:POSITIVE Performed By: #### B RC, [id number], BTS, BtABORH, [id number] ####[facility] [id number] [facility] [place], [place], [id number] Start: 08-08-2024 Computed tomography of abdomen and pelvis with contrast Dr. Ethan Rodriguez MD Work Phone: Start: 08-07-[address] Ethan Rodriguez MD Work Phone: Start: 08-06-2024 Computed tomography of abdomen and pelvis with contrast Dr. Ethan Rodriguez MD Work Phone: Start: 08-03-[address] Ehtan glass MD Work Phone: Start: 07-31-2024 Computed tomography of abdomen and pelvis with intravenous contrast Dr. Ethan Rodriguez MD Work Phone: Start: 07-31-2024 Calculation [...] measurement Dr. Ethan Bradley Work Phone: Start: 07-18-2024 End: 07-18-2024 Blood count smear mcrscp w/mnl [...] red blood cell count procedure Dr. Ethan Rodirguez MD Work Phone: Start: 06-24-2024 Platelet mean [...] PHYSICIAN Comment on above: Performed By: #### [id number] #### [facility] [address] [place] [address] Start: 09-07-2023 Prothrombin time Lita Gu MD [...] Work Phone: Start: 02-13-2023 Mammography Adilene Bryan [facility],PharmD Work Phone: Start: 02-01-2023 Prothrombin time Lita [...] MD Work Phone: Start: 01-02-2023 Prothrombin time Yingsam Sweeney Brittaney DO Work Phone: Start: 12-26-2022 Prothrombin time Lita Gu MD Work Phone: Start: 12-19-2022 Prothrombin time Lita Gu MD Work Phone: Start: 11-28-2022 Adult depression screening assessment Ying Brittaney DO Work Phone: Start: 06-11-2022 Basic metabolic panel calcium total Adia Rodriguez MD Work Phone: Start: 06-10-2022 Electrocardiogram Generic [facility] Work Phone: Start: 06-10-2022 Thromboplastin time partial plasma/whole blood Adia Rodriguez MD Work Phone: Start: 06-10-2022 Blood count complete automated Bambi Whyte PA-C Work Phone: Start: 06-10-2022 Radiologic exam chest single view Willia m Porfirio Whyte PA-C Work Phone: Start: 06-10-2022 Ct [...] 01-05-2022 Adult depression screening assessment Felicity Olson FRONT OFFICE SUPERVISOR Work Phone: Start: 12-07-2021 Mammography Felicity Olson FRONT OFFICE SUPERVISOR Work Phone: Start: 11-19-2021 Lipid 1996 panel - Serum or Plasma Debbie Puckett Jr., DPM Work Phone: Start: 06-17-2021 [...] blood count with white cell differential, automated Princelasadie Barlow Work Phone: Start: 09-14-2018 Complete blood count with white cell differential, manual Jalaj Chandna Work Phone: Start: 07-04-2016 Mammography Babmi Huynh Plan of Treatment Date Care Activity Detail Author Start: 03-19-2025 Urine screening for protein eGFR - Kidney Disease [facility] Start: 12-20-2024 Screening for malignant neoplasm of colon [facility] Start: 09-15-2024 [facility] Start: 09-15-2024 [facility] Start: 08-31-2024 Oxygen therapy [facility] Start: 08-31-2024 Administration of blood product [facility] Start: 08-31-2024 [facility] Start: 08-31-2024 Following clinical pathway protocol [facility] Start: 08-31-2024 Transfusion of blood product [facility] Start: 08-17-2024 Patient discharge [facility] Start: 08-16-2024 [facility] Start: 08-16-2024 Hemodialysis care [facility] Start: 08-15-2024 Anaerobic microbial culture [facility] Start: 08-15-2024 End: 08-15-2024 [facility] Start: 08-15-2024 Care of hemodialysis equipment [facility] Start: 08-15-2024 Wound care [facility] Start: 08-15-2024 End: 08-15-2024 Microbial culture, body fluid [facility] Start: 08-15-2024 Vital signs measurements [facility] Start: 08-15-2024 Ultrasonic guidance for thoracentesis [facility] Start: 08-14-2024 Application of intermittent pneumatic compression device [facility] Start: 08-14-2024 Care regimes management [facility] Start: 08-14-2024 Notification of physician [facility] Start: 08-14-2024 End: 08-14-2024 [facility] Start: 08-14-2024 Blood culture [facility] Start: 08-14-2024 Urine culture [facility] Start: 08-14-2024 Dialysis care [facility] Start: 08-14-2024 Following clinical pathway protocol [facility] Start: 08-14-2024 Care of hemodialysis equipment [facility] Start: 08-14-2024 Ambulation without limitation [facility] Start: 08-14-2024 Application of elastic bandage [facility] Start: 08-14-2024 Assessment of risk of venous thromboembolism [facility] Start: 08-14-2024 Elevation of affected extremity [facility] Start: 08-14-2024 Insertion of catheter into peripheral vein [facility] Start: 08-14-2024 Measuring intake and output [facility] Start: 08-14-2024 Notification of physician [facility] Start: 08-14-2024 Oxygen therapy [facility] Start: 08-14-2024 Patient education [facility] Start: 08-14-2024 Providing care according to standard [facility] Start: 08-14-2024 Referral to occupational therapist [facility] Start: 08-14-2024 Referral to service [facility] Start: 08-14-2024 Speech therapy assessment [facility] Start: 08-14-2024 Hemodialysis care [facility] Start: 08-14-2024 End: 08-14-2024 [facility] Start: 08-14-2024 Cell count and Differential panel - Body fluid [facility] Start: 08-14-2024 Glucose measurement, body fluid [facility] Start: 08-14-2024 Lactate dehydrogenase [Enzymatic activity/volume] in Body fluid by Pyruvate to lactate reaction [facility] Start: 08-14-2024 Microbial culture, body fluid [facility] Start: 08-14-2024 Microscopic observation [Identifier] in Body fluid by Cyto stain [facility] Start: 08-14-2024 Protein [Mass/volume] in Body fluid [facility] Start: 08-14-2024 Verification routine [facility] Start: 08-14-2024 Admission procedure [facility] Start: 08-14-2024 Referral to catering attendant [facility] Start: 08-14-2024 Hospital admission, emergency, from emergency room, medical nature [facility] Start: 08-14-2024 [facility] Start: 08-14-2024 End: 08-14-2024 [facility] Start: 08-14-2024 Patient referral to dietitian [facility] Start: 08-13-2024 End: 08-13-2024 [facility] Start: 08-13-2024 Care of hemodialysis equipment [facility] Start: 08-13-2024 Patient discharge [facility] Start: 08-12-2024 Care regimes management [facility] Start: 08-12-2024 Notification of physician [facility] Start: 08-12-2024 [facility] Start: 08-12-2024 Administration of blood product [facility] Start: 08-12-2024 Care of hemodialysis equipment [facility] Start: 08-12-2024 Hemodialysis care [facility] Start: 08-12-2024 End: 08-12-2024 [facility] Start: 08-09-2024 End: 08-09-2024 [facility] Start: 08-09-2024 Hemodialysis care [facility] Start: 08-07-2024 End: 08-08-2024 [facility] Start: 08-07-2024 Attention to flatus tube [facility] Start: 08-07-2024 Care of hemodialysis equipment [facility] Start: 08-07-2024 Hemodialysis care [facility] Start: 08-07-2024 [facility] Start: 08-05-2024 End: 08-06-2024 [facility] Start: 08-05-2024 Referral to occupational therapist [facility] Start: 08-05-2024 Referral to service [facility] Start: 08-05-2024 Care of hemodialysis equipment [facility] Start: 08-05-2024 Hemodialysis care [facility] Start: 08-04-2024 End: 08-05-2024 [facility] Start: 08-04-2024 Administration of blood product [facility] Start: 08-04-2024 Notification of physician [facility] Start: 08-04-2024 Care regimes management [facility] Start: 08-04-2024 [facility] Start: 08-03-2024 Nil by mouth [facility] Start: 08-02-2024 End: 08-03-2024 [facility] Start: 08-02-2024 Application of intermittent pneumatic compression device [facility] Start: 08-02-2024 Care of hemodialysis equipment [facility] Start: 08-02-2024 Hemodialysis care [facility] Start: 08-01-2024 Wound care [facility] Start: 08-01-2024 Care of hemodialysis equipment [facility] Start: 08-01-2024 Hemodialysis care [facility] Start: 08-01-2024 End: 08-01-2024 [facility] Start: 07-31-2024 Consultation for treatment [facility] Start: 07-31-2024 Following clinical pathway protocol [facility] Start: 07-31-2024 Ambulation without limitation [facility] Start: 07-31-2024 Assessment of risk of venous thromboembolism [facility] Start: 07-31-2024 Insertion of catheter into peripheral vein [facility] Start: 07-31-2024 Oxygen therapy [facility] Start: 07-31-2024 Providing care according to standard [facility] Start: 07-31-2024 Referral to gastroenterology service [facility] Start: 07-31-2024 Referral to catering attendant [facility] Start: 07-31-2024 Referral to service [facility] Start: 07-31-2024 [facility] Start: 07-31-2024 Admission procedure [facility] Start: 07-31-2024 Patient referral to dietitian [facility] Start: 07-29-2024 Patient discharge [facility] Start: 07-29-2024 Care of hemodialysis equipment [facility] Start: 07-29-2024 Hemodialysis care [facility] Start: 07-29-2024 [facility] Start: 07-26-2024 Care of hemodialysis equipment [facility] Start: 07-26-2024 Hemodialysis care [facility] Start: 07-26-2024 [facility] Start: 07-25-2024 Oxygen therapy [facility] Start: 07-25-2024 Care of hemodialysis equipment [facility] Start: 07-25-2024 Hemodialysis care [facility] Start: 07-25-2024 [facility] Start: 07-24-2024 Wound care [facility] Start: 07-23-2024 Application of intermittent pneumatic compression device [facility] Start: 07-23-2024 Assessment of risk of venous thromboembolism [facility] Start: 07-23-2024 Consultation for treatment [facility] Start: 07-23-2024 Documentation procedure [facility] Start: 07-23-2024 Insertion of catheter into peripheral vein [facility] Start: 07-23-2024 Patient referral to dietitian [facility] Start: 07-23-2024 Providing care according to standard [facility] Start: 07-23-2024 Provision of activity privileges [facility] Start: 07-23-2024 Referral to gastroenterology service [facility] Start: 07-23-2024 Referral to catering attendant [facility] Start: 07-23-2024 Referral to occupational therapist [facility] Start: 07-23-2024 Referral to service [facility] Start: 07-23-2024 [facility] Start: 07-23-2024 Admission procedure [facility] Start: 07-18-2024 [facility] Start: 07-18-2024 [facility] Start: 02-26-2024 End: 02-26-2024 Patient encounter procedure 02/26/2024 2:00 PM EDT Office Visit [facility] [address] [place] [address] Ying Quispe DO [address] [place] [address] [facility] Start: 02-14-2024 Screening for malignant neoplasm of breast Mammogram [facility] Start: 01-30-2024 End: 01-30-2024 Patient encounter procedure 01/30/2024 3:30 PM EDT Office Visit [facility] [address], 3rd [place] [address] Sarath Rey MD [address] [place] [address] [facility] Start: 01-28-2024 COVID-19 Vaccine ( season) COVID-19 Vaccine ( season) [facility] Start: 01-28-2024 COVID-19 Vaccine ( season) COVID-19 Vaccine ( season) [facility] Start: 01-28-2024 Influenza vaccination [facility] Start: 01-26-2024 Lipid panel Lipid Panel [facility] Start: 01-24-2024 End: 01-24-2024 Admission to same day surgery center 01/24/2024 7:10 AM EDT - 01/24/2024 11:55 AM EDT Surgery [facility] [address] [place] [address] Edenilson Guerra, [address] [place] [address] Explant of Endograft and Open Aortic Aneurysm Repair [facility] Comment on above: Explant of Endograft and Open Aortic Ane urysm Repair Start: 01-24-2024 End: 01-24-2024 Dir rpr ruptd aneurysm abdominal aorta ANEURYSM REPAIR ABDOMINAL AORTIC (AAA) Juxtarenal abdominal aortic aneurysm, ruptured (HCC) 01/24/2024 7:10 AM EDT [facility] Start: 01-24-2024 Subsequent hospital visit by physician [facility] Start: 01-23-2024 End: 01-23-2024 Patient encounter procedure 01/23/2024 3:30 PM EDT Office Visit [facility] [address] 3rd [place] [address] Sarath Rey MD [address] [place] [address] [facility] Start: 01-10-2024 End: 01-10-2024 Patient encounter procedure 01/10/2024 8:15 AM EDT Anticoag visit [facility] [address] [facility] [facility] [address] [place] [address] [facility] Start: 01-09-2024 End: 01-09-2024 Patient encounter procedure 01/09/2024 1:00 PM EDT Office Visit [facility] [address] 3rd [place] [phone] Sarath Rey MD [address] [place] [address] [facility] Start: 01-09-2024 Subsequent hospital visit by physician 01/09/2024 9:00 AM EDT Hospital Encounter [facility] CT Scan [address] [place] [phone] Sarath Rey MD [address] [place] [address] [facility] CT Scan Start: 01-05-2024 End: 01-05-2024 Patient encounter procedure [facility] Start: 01-03-2024 End: 01-03-2024 Patient encounter procedure [facility] Comment on above: Acute deep vein thrombosis (DVT) of axil yusuf vein of left upper extremity (HCC) (Primary Dx) Start: 01-03-2024 End: 01-03-2024 Home visit [facility] Start: 01-02-2024 End: 01-02-2024 Home visit 01/02/2024 11:45 AM EDT Home Care Visit [address] [address] Makenzie Garza RN [facility] Start: 12-28-2023 End: 12-28-2023 Home visit 12/28/2023 9:45 AM EDT Home Care Visit [address] [address] Nahid Lindsay PT [facility] Start: 12-27-2023 End: 12-27-2023 Patient encounter procedure [facility] Start: 12-27-2023 End: 12-27-2023 Home visit [facility] Start: 12-26-2023 End: 12-26-2023 Patient encounter procedure [facility] Start: 12-25-2023 End: 12-25-2023 Home visit 12/25/2023 3:00 PM EDT Home Care Visit [address] [address] Nahid Wheeler PTA [facility] Start: 12-21-2023 End: 12-21-2023 Patient encounter procedure [facility] Comment on above: Acute deep vein thrombosis (DVT) of axil yusuf vein of left upper extremity (HCC) (Primary Dx) Start: 12-21-2023 End: 12-20-2024 INR in Platelet poor plasma by Coagulation assay PT/INR Lab STAT Acute deep vein thrombosis (DVT) of axillary vein of left upper extremity (HCC) Expected: 12/21/2023, Expires: 12/20/2024 [facility] Work Phone: Comment on above: Expected: 12/21/2023, Expires: Start: 12-20-2023 End: 12-20-2023 Patient encounter procedure 12/20/2023 5:00 PM EDT Anticoag visit [facility] [address] [place] [address] [place] [address] [facility] Start: 12-20-2023 End: 12-20-2023 Home visit [facility] Start: 12-15-2023 COVID-19 Vaccine ( season) COVID-19 Vaccine () [facility] Start: 12-15-2023 End: 12-15-2023 Home visit 12/15/2023 6:00 AM EDT Home Care Visit [address] [phone] Ernestina Moody PTA [facility] Start: 12-13-2023 End: 12-13-2023 Patient encounter procedure [facility] Start: 12-13-2023 End: 12-13-2023 Home visit [facility] Start: 12-11-2023 End: 12-11-2023 Patient encounter procedure 12/11/2023 2:00 PM EDT Appointment [facility] CT Scan [address] [place] [address] Tylor Kruger MD [address] [facility] [address] [place] [address] [facility] CT Scan Start: 12-11-2023 End: 12-11-2023 Home visit 12/11/2023 11:00 AM EDT Home Care Visit [address] [address] Ernestina Moody PTA [facility] Start: 12-06-2023 End: 12-06-2023 Patient encounter procedure [facility] Comment on above: Acute deep vein thrombosis (DVT) of axil yusuf vein of left upper extremity (HCC) (Primary Dx) Start: 12-06-2023 End: 12-06-2023 Home visit [facility] Start: 12-05-2023 End: 12-05-2023 Home visit 12/05/2023 11:00 AM EDT Home Care Visit [address] [address] Ernestina Moody PTA [facility] Start: 11-29-2023 End: 11-29-2023 Patient encounter procedure [facility] Comment on above: Arrived Start: 11-29-2023 Depression screening using PHQ-9 (Patient Health Questionnaire 9) score [facility] Start: 11-29-2023 BEKAH-7 Screening BEKAH-7 Screening [facility] Start: 11-29-2023 End: 11-29-2023 Home visit [facility] Start: 11-28-2023 End: 11-28-2023 Patient encounter procedure 11/28/2023 3:00 PM EDT Appointment [facility] [place] [address] Abigail Estrella, FRONT OFFICE SUPERVISOR [address] [place] [address] [facility] Start: 11-27-2023 End: 11-27-2023 Home visit 11/27/2023 4:00 PM EDT Home Care Visit [address] [phone] Giovany Montalvo OTA [facility] Start: 11-24-2023 End: 11-24-2023 Home visit 11/24/2023 3:45 PM EDT Home Care Visit [address] [phone] Giovany Montalvo OTA [facility] Start: 11-23-2023 End: 11-23-2023 Patient encounter procedure 11/23/2023 1:30 PM EDT Office Visit [facility] [address] [place] [address] Ying Quispe DO [address] [place] [address] [facility] [facility] Start: 11-23-2023 End: 11-23-2023 Home visit [facility] Start: 11-22-2023 End: 11-22-2023 Patient encounter procedure 11/22/2023 2:00 PM EDT Office Visit [facility] [address] [place] [address] Abigail Estrella, FRONT OFFICE SUPERVISOR [address] [place] [address] Discharge Disposition: Home [facility] Start: 11-21-2023 End: 11-21-2023 Patient encounter procedure [facility]tico[facility] Comment on above: Acute deep vein thrombosis (DVT) of axil yusuf vein of left upper extremity (HCC) (Primary Dx) Start: 11-21-2023 End: 11-21-2023 Home visit [facility] Start: 11-18-2023 End: 11-16-2024 CTA Abdominal Aorta and Bilateral Runoff Vessels W contrast IV CT Angiogram Abdominal Aorta With Lower Extremity Imaging Routine 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) PVD (peripheral vascular disease) (HCC) Expected: 11/18/2023, Expires: 11/16/2024 [facility] Comment on above: Expected: 11/18/2023, Expires: Start: 11-17-2023 End: 11-17-2023 Home visit 11/17/2023 3:30 PM EDT Home Care Visit [address] [address] Giovany Montalvo OTA [facility] Start: 11-17-2023 End: 11-16-2024 Creatinine [Mass/volume] in Serum or Plasma Creatinine, serum Lab Routine 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) PVD (peripheral vascular disease) (HCC) Expected: 11/17/2023, Expires: 11/16/2024 [facility] Work Phone: Comment on above: Expected: 11/17/2023, Expires: Start: 11-17-2023 End: 11-17-2023 Patient encounter procedure 11/17/2023 8:00 AM EDT Office Visit [facility] [address] [place] [address] Tylor Kruger MD [address] [facility] [address] [place] [address] [place] [address] [facility] Start: 11-16-2023 End: 11-16-2023 Home visit [facility] Start: 11-16-2023 End: 11-16-2023 Patient encounter procedure 11/16/2023 9:00 AM EDT Appointment [facility] [address] [facility] [place] [address] Tylor Kruger MD [address] [facility] [address] [place] [address] [facility] Start: 11-16-2023 Subsequent hospital visit by physician 11/16/2023 9:00 AM EDT Hospital Encounter [facility] [address] [facility] [place] [address] Tylor Kruger MD [address] [place] [address] [facility] Start: 11-14-2023 End: 11-14-2023 Patient encounter procedure [facility]tico[facility] Comment on above: Arrived Start: 11-14-2023 End: 11-14-2023 Home visit [facility] Start: 11-14-2023 End: 11-14-2023 Home visit 11/14/2023 Home Care Visit [address] [address] Addie Purcell RN [facility] Start: 11-11-2023 End: 12-10-2024 US angiography of renal artery Ultrasound renal artery duplex, complete Vascular Ultrasound Routine Ruptured abdominal aortic aneurysm (AAA), unspecified part (HCC) Expected: 11/11/2023, Expires: 12/10/2024 [facility] Work Phone: Comment on above: Expected: 11/11/2023, Expires: Start: 11-10-2023 End: 11-10-2023 Home visit [facility] Start: 11-10-2023 End: 11-10-2023 Home visit 11/10/2023 Home Care Visit [address] [address] Addie Purcell RN [facility] Start: 11-08-2023 End: 11-08-2023 Patient encounter procedure 11/08/2023 5:00 PM EDT Anticoag visit [facility]tico[facility] Clinic [address] [place] [address] Lita Gu MD [facility] [place] [address] Discharge Disposition: Home [facility] Start: 11-08-2023 End: 11-08-2023 Home visit [facility] Start: 11-08-2023 End: 11-08-2023 Home visit 11/08/2023 Home Care Visit [address] [address] Addie Purcell RN [facility] Start: 11-06-2023 End: 11-06-2023 Patient encounter procedure 11/06/2023 8:30 AM EDT Appointment [address] [address] Makenzie Garza RN [facility] Start: 11-01-2023 End: 11-01-2023 Follow-up encounter 11/01/2023 1:00 PM EDT Follow-Up [facility] [address] [place] [address] Cate Contreras, FRONT OFFICE SUPERVISOR [address] [place] [address] [facility] Start: 10-25-2023 End: 10-25-2023 Patient encounter procedure 10/25/2023 8:30 AM EDT Office Visit [facility] [address] [place] [address] Ying Quispe DO [address] [place] [address] [facility] Start: 10-17-2023 End: 10-17-2023 Patient encounter procedure 10/17/2023 1:30 PM EDT Procedure visit [facility] [address] [facility] [address] [place] [address] Cuauhtemoc Barrios MD [address] [address] [facility] Start: 10-12-2023 End: 10-12-2023 Patient encounter procedure [facility] Start: 10-09-2023 End: 10-09-2023 Patient encounter procedure [facility] CT Scan Start: 09-19-2023 End: 09-19-2023 Patient encounter procedure [facility] Start: 09-18-2023 End: 09-18-2023 Patient encounter procedure 09/18/2023 9:45 AM EDT Appointment [facility] MRI [address] [place] [phone] Theresa Boykin PA-C [address] [facility] [address] [place] [address] [facility] MRI Start: 09-18-2023 End: 09-18-2023 Patient encounter procedure 09/18/2023 8:40 AM EDT Appointment [facility] CT Scan [address] [place] [phone] Lita Gu MD [address] [place] [address] [facility] [address] Scan Start: 09-07-2023 End: 09-07-2023 Patient encounter procedure 09/07/2023 8:15 AM EDT Anticoag visit [facility] [address] [place] [address] [facility] Start: 08-10-2023 End: 08-10-2023 Patient encounter procedure 08/10/2023 8:30 AM EDT Anticoag visit [facility] [address] [place] [address] [facility] Start: 07-18-2023 End: 07-18-2023 Patient encounter procedure 07/18/2023 9:00 AM EST Office Visit [facility] [address] [place] [address] Yfn Puckett Jr., DPRosie [address] [place] [address] [facility] Start: 2023 End: 2023 Patient encounter procedure 2023 8:00 AM EST Appointment [facility] [address] [place] [address] Yfn Puckett Jr., DPM [address] [place] [address] [facility] Start: 07-13-2023 End: 07-13-2023 Patient encounter procedure 07/13/2023 8:15 AM EST Anticoag visit [facility] [address] [facility] [address] [place] [address] [facility] Start: 06-07-2023 End: 06-07-2023 Patient encounter procedure 06/07/2023 8:15 AM EST Anticoag visit [facility] [address] [place] [address] [place] [address] [facility] Start: 06-06-2023 Depression screening using PHQ-9 (Patient Health Questionnaire 9) score Depression Screening (PHQ-2/9) [facility] Start: 06-06-2023 BEKAH-7 Screening BEKAH-7 Screening [facility] Start: 05-03-2023 End: 05-03-2023 Patient encounter procedure 05/03/2023 8:15 AM EST Anticoag visit [facility] [address] [place] [address] [place] [address] [facility] Start: 04-24-2023 End: 04-24-2023 Patient encounter procedure 04/24/2023 11:30 AM EST Office Visit [facility] [address] [place] [address] Ying Quispe DO [address] [place] [address] [facility] Start: 04-10-2023 End: 04-10-2023 Patient encounter procedure 04/10/2023 8:15 AM EST Office Visit [facility] [address] [place] [address] Lita Gu MD [address] [place] [address] [facility] Start: 04-05-2023 End: 04-05-2023 Patient encounter procedure 04/05/2023 8:00 AM EST Anticoag visit [facility] [address] [facility] [address] [place] [address] [facility] Start: 03-08-2023 End: 03-08-2023 Patient encounter procedure 03/08/2023 8:00 AM EDT Anticoag visit [facility] [address] [facility] [address] [place] [address] [facility] Start: 02-15-2023 End: 02-15-2023 Patient encounter procedure 02/15/2023 8:00 AM EDT Anticoag visit [facility] [address] [place] [address] [place] [address] [facility] Start: 02-13-2023 End: 02-13-2023 Patient encounter procedure 02/13/2023 9:30 AM EDT Appointment [facility] [address] [place] [address] Ying Quispe, [address] [place] [address] [facility] Start: 02-08-2023 End: 03-27-2024 MG Breast - bilateral Screening Mammography Screening Jose Bilateral Imaging Routine Encounter for screening mammogram for malignant neoplasm of breast Expected: 02/08/2023, Expires: 03/27/2024 [facility] Comment on above: Expected: 02/08/2023, Expires: Start: 02-03-2023 End: 02-03-2023 Patient encounter procedure 02/03/2023 11:00 AM EDT Office Visit [facility] [address] [facility] Medical Office Building, 2nd [place] [address] Lita Gu MD [address] [place] [address] Nazario Almeida MD [facility] [address] [place] [address] [address] [facility] Start: 02-01-2023 End: 02-01-2023 Patient encounter procedure 02/01/2023 8:00 AM EDT Anticoag visit [facility] [address] [place] [address] [facility] Start: 01-27-2023 COVID-19 Vaccine ( season) COVID-19 Vaccine () [facility] Start: 01-27-2023 Influenza vaccination [facility] Start: 01-25-2023 End: 01-25-2023 Patient encounter procedure 01/25/2023 3:45 PM EDT Office Visit [facility] [address] [place] [address] Ying Quispe DO [address] [place] [address] [facility] Start: 01-23-2023 End: 01-23-2023 Patient encounter procedure 01/23/2023 10:30 AM EDT Anticoag visit [facility] [address] [facility] [address] [place] [address] [place] [address] [facility] Start: 01-16-2023 End: 01-16-2023 Patient encounter procedure 01/16/2023 8:15 AM EDT Anticoag visit [facility] [address] [place] [address] [facility] Start: 01-09-2023 End: 01-09-2023 Patient encounter procedure 01/09/2023 8:00 AM EDT Anticoag visit [facility] [address] [place] [address] [facility] Start: 01-05-2023 Depression screening using PHQ-9 (Patient Health Questionnaire 9) score Depression Screening (PHQ-2/9) [facility]: 01-05-2023 BEKAH-7 Screening BEKAH-7 Screening [facility] Start: 01-02-2023 End: 01-02-2023 Patient encounter procedure 01/02/2023 7:30 AM EDT Anticoag visit [facility] [address] [place] [address] [place] [address] [facility] Start: 12-26-2022 End: 12-26-2022 Patient encounter procedure 12/26/2022 8:15 AM EDT Anticoag visit [facility] [address] [place] [address] [place] [address] [facility] Start: 12-19-2022 End: 12-19-2022 Patient encounter procedure 12/19/2022 7:45 AM EDT Anticoag visit [facility] [address] [place] [address] [place] [address] Lita Gu MD [address] [place] [address] [facility] Start: 12-12-2022 End: 12-12-2022 Patient encounter procedure 12/12/2022 9:30 AM EDT Office Visit [facility] [address] [place] [address] Lita Gu MD [address] [place] [address] [facility] Start: 12-07-2022 Screening for malignant neoplasm of breast Mammogram [facility] Start: 12-01-2022 End: 12-01-2022 Clinical Support 12/01/2022 8:00 AM EDT Clinical Support [facility] [place] [address] [facility] Start: 11-28-2022 End: 11-28-2022 Patient encounter procedure 11/28/2022 4:15 PM EDT Office Visit [facility] [place] [address] Jemez PuebloYing harmon Zahra, [address] [place] [address] [facility] Start: 11-24-2022 End: 11-24-2022 Patient encounter procedure 11/24/2022 Office Visit Primary Care BrittaneyYing DO [address] [place] [address] [facility] Start: 11-21-2022 End: 11-21-2022 Patient encounter procedure 11/21/2022 Office Visit Primary Care BrittaneyYing DO [address] [place] [address] [facility] Start: 11-19-2022 Lipid panel Lipid Panel [facility] Start: 11-18-2022 History and physical examination, annual for health maintenance Wellness Visit [facility] Start: 11-08-2022 End: 10-26-[address] CT Biopsy Lymph Node CT Biopsy Lymph Node Imaging Routine History of deep venous thrombosis Axillary lymphadenopathy Expected: 11/08/2022, Expires: 10/26/2023 [facility] Work Phone: Comment on above: Expected: 11/08/2022, Expires: Start: 10-25-2022 End: 10-25-2022 Patient encounter procedure 10/25/2022 10:45 AM EDT Office Visit [facility] [address] [place] [address] Lita Gu MD [address] [place] [address] [facility] Start: 10-18-2022 End: 09-27-2023 MR Brain With And Without Contrast MR Brain With And Without Contrast Imaging Routine History of deep venous thrombosis Current smoker Transaminitis Factor V Leiden mutation (HCC) Lymphadenopathy Decreased muscle strength Lung nodule seen on imaging study Expected: 10/18/2022 (Approximate), Expires: 09/27/2023 [facility] Comment on above: Expected: 10/18/2022 (Approximate), Expi res: 09/27/2023 Start: 10-18-2022 End: 09-28-2023 PET Tumor Imaging With CT Skull To Thigh PET Tumor Imaging With CT Skull To Thigh Imaging Routine History of deep venous thrombosis Current smoker Transaminitis Factor V Leiden mutation (HCC) Lymphadenopathy Decreased muscle strength Lung nodule seen on imaging study Expected: 10/18/2022 (Approximate), Expires: 09/28/2023 [facility] Work Phone: Comment on above: Expected: 10/18/2022 (Approximate), Expi res: 09/28/2023 Start: 09-27-2022 End: 09-27-2022 Patient encounter procedure [facility] Start: 09-20-2022 End: 09-20-2022 Patient encounter procedure 09/20/2022 11:30 AM EDT Office Visit [facility] [address] [place] [address] Ying Quispe DO [address] [place] [address] [facility] Start: 09-15-2022 End: 09-15-2022 Patient encounter procedure 09/15/2022 Appointment Radiology Lita Gu MD [address] [place] [address] [facility]ated [facility] CT Scan Start: 09-14-2022 End: 07-07-2023 Complete blood count with white cell differential, manual CBC and Differential Lab Routine Acute deep vein thrombosis (DVT) of axillary vein of left upper extremity (HCC) Current smoker Cigarette smoker Screening for malignant neoplasm of respiratory organ Expected: 09/14/2022 (Approximate), Expires: 07/07/2023 [facility] Work Phone: Comment on above: Expected: 09/14/2022 (Approximate), Expi res: 07/07/2023 Start: 09-14-2022 End: 07-07-2023 Comprehensive metabolic 2000 panel - Serum or Plasma Comprehensive Metabolic Panel Lab Routine Acute deep vein thrombosis (DVT) of axillary vein of left upper extremity (HCC) Current smoker Cigarette smoker Screening for malignant neoplasm of respiratory organ Expected: 09/14/2022 (Approximate), Expires: 07/07/2023 [facility] Comment on above: Expected: 09/14/2022 (Approximate), Expi res: 07/07/2023 Start: 09-14-2022 End: 07-06-2023 D-dimer assay, quantitative D-Dimer, Quantitative Lab Routine Acute deep vein thrombosis (DVT) of axillary vein of left upper extremity (HCC) Current smoker Cigarette smoker Screening for malignant neoplasm of respiratory organ Expected: 09/14/2022 (Approximate), Expires: 07/06/2023 [facility] Comment on above: Expected: 09/14/2022 (Approximate), Expi res: 07/06/2023 Start: 09-14-2022 End: 07-06-2023 Low dose computed tomography of thorax CT Lung Cancer Screening Imaging Routine Acute deep vein thrombosis (DVT) of axillary vein of left upper extremity (HCC) Current smoker Cigarette smoker Screening for malignant neoplasm of respiratory organ Expected: 09/14/2022, Expires: 07/06/2023 [facility] Comment on above: Expected: 09/14/2022, Expires: Start: 09-12-2022 End: 09-12-2022 Patient encounter procedure 09/12/2022 Office Visit Primary Care Ying Quispe DO [address] [place] [address] [facility] Start: 2022 Respiratory Syncytial Virus Immunization: Risk, 60-74 Risk, or 75+ (1 - Risk 60-74 years 1-dose series) Respiratory Syncytial Virus Immunization: Risk, 60-74 Risk, or 75+ (1 - Risk 60-74 years 1-dose series) [facility] Start: 06-13-2022 End: 06-13-2022 Patient encounter procedure 06/13/2022 Office Visit Primary Care Ying Quispe DO [address] [place] [address] [facility] Start: 05-12-2022 Depression screening using PHQ-9 (Patient Health Questionnaire 9) score Depression Screening (PHQ-2/9) [facility] Start: 05-12-2022 BEKAH-7 Screening BEKAH-7 Screening [facility] Start: 01-27-2022 Influenza vaccination [facility] Start: 01-13-2022 End: 01-13-2022 Patient encounter procedure 01/13/2022 Office Visit Podiatry Yfn Pcukett Jr., YELITZA [address] [place] [address] [facility] Start: 12-07-2021 Subsequent hospital visit by physician 12/07/2021 Hospital Encounter Radiology Ying Quispe, DO [address] [place] [address] [facility] Start: 12-07-2021 End: 12-07-2021 Patient encounter procedure 12/07/2021 Appointment Radiology Ying Quispe DO [address] [place] [address] [facility] Start: 11-25-2021 End: 11-25-2021 Patient encounter procedure 11/25/2021 Office Visit Podiatry Yfn Puckett Jr., YELITZA [address] [place] [address] [facility] Start: 11-24-2021 End: 11-24-2021 Patient encounter procedure 11/24/2021 Office Visit Primary Care Ying Quispe DO [address] [place] [address] [facility] Start: 11-18-2021 End: 11-18-2021 Patient encounter procedure 11/18/2021 Office Visit Primary Care Ying Quispe DO [address] [place] [address] [facility] Start: 11-11-2021 End: 11-11-2021 Patient encounter procedure 11/11/2021 Office Visit Podiatry Yfn Puckett Jr., DPRosie [address] [place] [address] [facility] Start: 09-29-2021 Depression screening using PHQ-9 (Patient Health Questionnaire 9) score Depression Screening (PHQ9) [facility] Start: 07-22-2021 End: 07-22-2021 Patient encounter procedure 07/22/2021 Office Visit Podiatry Yfn Puckett Jr., YELITZA [address] [place] [address] [facility] Start: 06-21-2021 End: 06-21-2021 Patient encounter procedure 06/21/2021 Office Visit Primary Care Ying Quispe, [address] [place] [address] [facility] Start: 06-21-2021 BEKAH-7 Screening BEKAH-7 Screening [facility] Start: 04-15-2021 End: 04-15-2021 Patient encounter procedure 04/15/2021 Office Visit Primary Care Bambi Huynh MD [address] [place] [address] [phone] [facility] Start: 01-27-2021 Influenza vaccination [facility] Start: 09-29-2020 End: 09-29-2020 Patient encounter procedure 09/29/2020 Office Visit Primary Care Bambi Huynh MD [address] [place] [address] [phone] [facility] Start: 01-28-2020 Influenza vaccination given Sequential Influenza Vaccine (#1) [facility] Start: 01-24-2020 History and physical examination, annual for health maintenance Wellness Visit [facility] Comment on above: Postponed from 1965 (Patient Does Not Have Time) Start: 01-24-2020 Tetanus vaccination [facility] Comment on above: Postponed from 1962 (Patient Does Not Have Time) Start: 01-15-2020 Administration of herpes zoster vaccine Zoster Vaccines (1 of 2) [facility] Comment on above: Postponed from 2012 (Treatment Not Available) Start: 01-15-2020 Depression screening using PHQ-9 (Patient Health Questionnaire 9) score DEPRESSION SCREENING (PHQ9) [facility] Start: 12-21-2019 Lipid panel Lipid Panel [facility] Start: 11-26-2019 Influenza vaccination given SEQUENTIAL INFLUENZA VACCINE (#1) [facility] Comment on above: Postponed from 01/27/2019 (Patient Refus ed) Start: 09-23-2019 End: 09-23-2019 Office Visit 09/23/2019 Office Visit Primary Care Bambi Huynh MD [address] [place] [address] [phone] [facility] Start: 07-26-2019 Protein mass conc Mammogram [facility] Comment on above: Postponed from 07/04/2017 (Patient Does Not Have Time) Start: 07-26-2019 Screening for osteoporosis DEXA SCAN [facility] Comment on above: Postponed from 1962 (Patient Does Not Have Time) Start: 07-26-2019 Screening mammography Mammogram [facility] Comment on above: Postponed from 07/04/2017 (Patient Does Not Have Time) Start: 07-25-2019 Screening for malignant neoplasm of cervix PAP SMEAR [facility] Comment on above: Postponed from 1962 (Patient Does Not Have Time) Start: 05-01-2019 End: 05-01-2019 Treatment 05/01/2019 Treatment Rehabilitation Bambi Huynh MD [address] [place] [address] [phone] Fuad Pisano, PT Located Within [facility] Start: 04-29-2019 End: 04-29-2019 Treatment 04/29/2019 Treatment Rehabilitation Bambi Huynh MD [address] [place] [address] [phone] Tisha Do [facility] Start: 04-24-2019 End: 04-24-2019 Treatment 04/24/2019 Treatment Rehabilitation Bambi Huynh MD [address] [facility] [address] [place] [address] [phone] Soo Walls [facility] Start: 04-24-2019 End: 04-24-2019 Treatment 04/24/2019 Treatment Rehabilitation Bambi Huynh MD [address] [place] [address] [phone] Oh Crockett [facility] Start: 04-22-2019 End: 04-22-2019 Treatment 04/22/2019 Treatment Rehabilitation Bambi Huynh MD [address] [place] [address] [phone] Tisha Do [facility] Start: 04-17-2019 End: 04-17-2019 Treatment 04/17/2019 Treatment Rehabilitation Bambi Huynh MD [address] [place] [address] [phone] Leanne Gomes [facility] Start: 04-15-2019 End: 04-15-2019 Treatment 04/15/2019 Treatment Rehabilitation Bambi Huynh MD [address] [facility] [place] [address] Tisha Do [facility] Start: 04-10-2019 End: 04-10-2019 Treatment 04/10/2019 Treatment Rehabilitation Bambi Huynh MD [address] [place] [address] Leanne Gomes [facility] Start: 03-26-2019 End: 03-26-2019 Office Visit 03/26/2019 Office Visit Primary Care Bambi Huynh MD [address] [place] [address] [phone] [facility] Start: 01-27-2019 Influenza vaccination given SEQUENTIAL INFLUENZA VACCINE (#1) [facility] Start: 01-15-2019 End: 01-15-2019 Office Visit 01/15/2019 Office Visit Primary Care Bambi Huynh MD [address] [place] [address] [phone] [facility] Start: 10-30-2018 End: 10-30-2018 Office Visit 10/30/2018 Office Visit Sports Medicine Mendez Roy MD [address] [place] [address] [phone] [facility] Start: 09-06-2018 History and physical examination, annual for health maintenance ANNUAL EXAM [facility] Comment on above: Postponed from 1962 (Patient Does Not Have Time) Start: 01-01-2018 End: 01-01-2018 Ambulatory 01/01/2018 Office Visit Primary Care Bambi Huynh MD [address] [place] [address] [phone] [facility] Physician [facility] Start: 07-04-2017 Screening for malignant neoplasm of breast Mammogram [facility] Start: 07-04-2017 Screening mammography MAMMOGRAM [facility] Work Phone: Start: 2012 Administration of herpes zoster vaccine Zoster Vaccines (1 of 2) [facility] Start: 2012 Screening for malignant neoplasm of colon [facility] Start: 1992 Screening for malignant neoplasm of cervix [facility] Start: 1983 Screening for malignant neoplasm of cervix Pap Smear [facility] Start: 1981 Pneumococcal Vaccine: Age 50+ (1 of 2 - PCV) Pneumococcal Vaccine: Age 50+ (1 of 2 - PCV) [facility] Start: 1981 Pneumococcal Vaccine: Ped or At-Risk (1 of 2 - PCV) Pneumococcal Vaccine: Ped or At-Risk (1 of 2 - PCV) [facility] Start: 1978 COVID-19 Vaccine (1 of 2) COVID-19 Vaccine (1 of 2) [facility] Start: 1978 COVID-19 Vaccine (1) COVID-19 Vaccine (1) [facility] Start: 1977 HIV screening HIV Screening [facility] Start: 1974 Adolescent depression screening assessment Depression Screening (PHQ9) [facility] Start: 1974 COVID-19 Vaccine (1) COVID-19 Vaccine (1) [facility] Start: 1974 Depression screening using PHQ-9 (Patient Health Questionnaire 9) score Depression Screening (PHQ9) [facility] Start: 1972 Urine screening for protein Urine (micro)albumin/creatinine ratio - Kidney Disease [facility] Start: 1968 Pneumococcal Vaccine: Ped or At-Risk (1 - PCV) Pneumococcal Vaccine: Ped or At-Risk (1 - PCV) [facility] Start: 1968 Pneumococcal Vaccine: Ped or At-Risk (1 of 2 - PCV) Pneumococcal Vaccine: Ped or At-Risk (1 of 2 - PCV) [facility] Start: 1968 Pneumococcal Vaccine: Ped or At-Risk (1 of 2 - PPSV23) Pneumococcal Vaccine: Ped or At-Risk (1 of 2 - PPSV23) [facility] Start: 1967 COVID-19 Vaccine (#1) COVID-19 Vaccine (#1) [facility] Start: 1967 COVID-19 Vaccine (1) COVID-19 Vaccine (1) [facility] Start: 1965 History and physical examination, annual for health maintenance Wellness Visit [facility] Start: 01-14-1963 COVID-19 Vaccine (#1) COVID-19 Vaccine (#1) [facility] Start: 1962 HEPATITIS C SCREENING HEPATITIS C SCREENING [facility] Work Phone: Start: 1962 Protein mass conc COLONOSCOPY [facility] Start: 1962 Screening colonoscopy COLONOSCOPY [facility] Work Phone: Start: 1962 Screening for malignant neoplasm of cervix PAP SMEAR [facility] Start: 1962 Screening for malignant neoplasm of colon [facility] Start: 1962 Screening for osteoporosis Dexa Scan [facility] Start: 1962 Tetanus vaccination [facility] Amylase [Enzymatic activity/volume] in Body fluid [facility] Amylase [Enzymatic activity/volume] in Body fluid [facility] End: 11-18-2022 Bone density scan XR Bone Density DEXA Axial Imaging Routine Post-menopause 1 Occurrences starting 11/18/2021 until 11/18/2022 [facility] Comment on above: 1 Occurrences starting 11/18/2021 until 11/18/2022 Cologuard Cologuard Lab Ro utine Colon cancer screening Ordered: 11/18/2021 [facility] Comment on above: Ordered: 11/18/2021 Complete blood count with white cell differential, automated CBC Auto Differential Lab Panel Routine Orthostatic hypotension Ordered: 11/23/2023 [facility] Comment on above: Ordered: 11/23/2023 End: 11-18-2022 Complete blood count with white cell differential, manual CBC and Differential Lab Routine Routine general medical examination at a health care facility 1 Occurrences starting 11/18/2021 until 11/18/2022 [facility] Comment on above: 1 Occurrences starting 11/18/2021 until 11/18/2022 End: 12-13-2023 Complete blood count with white cell differential, manual CBC and Differential Lab Routine History of deep venous thrombosis Reactive lymphadenopathy Factor V Leiden mutation (HCC) Every 4 mo for 2 Occurrences starting 12/12/2022 until 12/13/2023, 1 completed [facility] Work Phone: Comment on above: Every 4 mo for 2 Occurrences starting until 12/13/2023, 1 completed End: 11-22-2024 Complete blood count with white cell differential, manual CBC and Differential Lab Routine Orthostatic hypotension 1 Occurrences starting 11/23/2023 until 11/22/2024 [facility] Comment on above: 1 Occurrences starting 11/23/2023 until 11/22/2024 End: 11-29-2023 Comprehensive metabolic 2000 panel - Serum or Plasma Comprehensive Metabolic Panel Lab Routine Familial hypercholesteremia 1 Occurrences starting 11/28/2022 until 11/29/2023 [facility] Work Phone: Comment on above: 1 Occurrences starting 11/28/2022 until 11/29/2023 End: 01-26-2024 Comprehensive metabolic 2000 panel - Serum or Plasma Comprehensive Metabolic Panel Lab Routine Hypothyroidism, unspecified type 1 Occurrences starting 01/25/2023 until 01/26/2024 [facility] Work Phone: Comment on above: 1 Occurrences starting 01/25/2023 until 01/26/2024 End: 11-22-2024 Comprehensive metabolic 2000 panel - Serum or Plasma Comprehensive Metabolic Panel Lab Routine Orthostatic hypotension 1 Occurrences starting 11/23/2023 until 11/22/2024 [facility] Work Phone: Comment on above: 1 Occurrences starting 11/23/2023 until 11/22/2024 End: 12-05-2020 COVID-19, Molecular COVID-19, Molecular Microbiology Routine Close Exposure To Covid-19 Virus Cough 1 Occurrences starting 12/06/2019 until 12/05/2020 [facility] Comment on above: 1 Occurrences starting 12/06/2019 until 12/05/2020 End: 01-04-2025 CTA Chest vessels and Abdominal vessels and Pelvis vessels W contrast IV CT Angiogram Chest Abdomen Pelvis Imaging Routine 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) Postoperative leak 1 Occurrences starting 01/05/2024 until 01/04/2025 [facility] Work Phone: Comment on above: 1 Occurrences starting 01/05/2024 until 01/04/2025 End: 05-23-2025 CTA Chest vessels and Abdominal vessels and Pelvis vessels WO and W contrast IV CT Angiogram Abdomen Pelvis Imaging Routine Abdominal aortic aneurysm (AAA) without rupture, unspecified part (HCC) 1 Occurrences starting 05/23/2024 until 05/23/2025 [facility] Work Phone: Comment on above: 1 Occurrences starting 05/23/2024 until 05/23/2025 Cytology report of B richie fluid Cyto stain [facility] Dir rpr ruptd aneury sm abdominal aorta ANEURYSM REPAIR ABDOMINAL AORTIC (AAA) Juxtarenal abdominal aortic aneurysm, ruptured (HCC) [facility] Doppler ultrasonogra phy of artery of lower limb Segmental Doppler Lower Extremity Arterial Vascular Ultrasound Routine Right-sided low back pain with right-sided sciatica, unspecified chronicity Ordered: 07/04/2023 [facility] Work Phone: Comment on above: Ordered: 07/04/2023 End: 06-06-2023 Erythrocyte sedimentation rate Sedimentation Rate Lab Routine Raynaud's phenomenon without gangrene 1 Occurrences starting 06/06/2022 until 06/06/2023 [facility] Work Phone: Comment on above: 1 Occurrences starting 06/06/2022 until 06/06/2023 Factor II (prothromb in) [id number] mutation detection Prothrombin (F2) 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) Lab Routine 06/11/2022 4:13 AM EST [facility] Factor V Leiden genotype Factor V (F5) Leiden Mutation (R506Q) Lab Routine 06/11/2022 4:13 AM EST [facility] Work Phone: End: 11-18-2022 Hemoglobin A1c/Hemoglobin.total in Blood Hemoglobin A1c Lab Routine Routine general medical examination at a health care facility 1 Occurrences starting 11/18/2021 until 11/18/2022 [facility] Comment on above: 1 Occurrences starting 11/18/2021 until 11/18/2022 End: 07-03-2018 Hepatitis C Antibody Hepatitis C Antibody Routine Encounter For Hepatitis C Screening Test For Low Risk Patient 1 Occurrences starting 07/03/2017 until 07/03/2018 [facility] Work Phone: [facility] End: 2019 Lipid 1996 panel Lipid Panel Routine Hyperlipidemia, unspecified hyperlipidemia type 1 Occurrences starting 2018 until 2019 [facility] Comment on above: 1 Occurrences starting 2018 until 2019 End: 11-18-2022 Lipid 1996 panel - Serum or Plasma Lipid Panel Lab Routine Routine general medical examination at a health care facility 1 Occurrences starting 11/18/2021 until 11/18/2022 [facility] Comment on above: 1 Occurrences starting 11/18/2021 until 11/18/2022 End: 01-26-2024 Lipid 1996 panel - Serum or Plasma Lipid Panel Lab Routine Familial hypercholesteremia 1 Occurrences starting 01/25/2023 until 01/26/2024 [facility] Comment on above: 1 Occurrences starting 01/25/2023 until 01/26/2024 End: 07-03-2018 Lipid panel Lipid Panel Routine Hyperlipidemia, unspecified hyperlipidemia type 1 Occurrences starting 07/03/2017 until 07/03/2018 [facility] Work Phone: End: 01-18-2023 MG Breast - bilateral Screening Mammography Screening Jose Bilateral Imaging Routine Encounter for screening mammogram for malignant neoplasm of breast 1 Occurrences starting 11/18/2021 until 01/18/2023 [facility] Work Phone: Comment on above: 1 Occurrences starting 11/18/2021 until 01/18/2023 End: 08-23-2024 MR Lumbar spine WO contrast MR Lumbar Spine Without Contrast Imaging Routine Lumbosacral radiculopathy Weakness of right lower extremity Paresthesias 1 Occurrences starting 08/24/2023 until 08/23/2024 [facility] Work Phone: Comment on above: 1 Occurrences starting 08/24/2023 until 08/23/2024 Patient Education [facility] Work Phone: Patient referral [facility] Work Phone: pH of Body fluid [facility] pH of Body fluid [facility] Procedure on tissue specimen Tissue Exam STAT Once for 1 Occurrences starting 09/14/2018 [facility] Comment on above: Once for 1 Occurrences starting 09/15/19 End: 09-28-2021 Thyrotropin [Units/volume] in Serum or Plasma TSH Lab Routine Hypothyroidism, unspecified type 1 Occurrences starting 09/28/2020 until 09/28/2021 [facility] Comment on above: 1 Occurrences starting 09/28/2020 until 09/28/2021 End: 06-06-2023 Thyrotropin [Units/volume] in Serum or Plasma TSH with Reflex Free T4 Lab Routine Hypothyroidism, unspecified type 1 Occurrences starting 06/06/2022 until 06/06/2023 [facility] Comment on above: 1 Occurrences starting 06/06/2022 until 06/06/2023 End: 01-26-2024 Thyrotropin [Units/volume] in Serum or Plasma TSH with Reflex Free T4 Lab Routine Hypothyroidism, unspecified type 1 Occurrences starting 01/25/2023 until 01/26/2024 [facility] Comment on above: 1 Occurrences starting 01/25/2023 until 01/26/2024 End: 04-24-2024 Thyrotropin [Units/volume] in Serum or Plasma TSH with Reflex Free T4 Lab Routine Hypothyroidism, unspecified type 1 Occurrences starting 04/24/2023 until 04/24/2024 [facility] Work Phone: Comment on above: 1 Occurrences starting 04/24/2023 until 04/24/2024 End: 2019 Thyrotropin Qn TSH Routine Hypothyroidism, unspecified type 1 Occurrences starting 2018 until 2019 [facility] Comment on above: 1 Occurrences starting 2018 until 2019 Total protein measurement [facility] End: 01-15-2020 TSH Qn TSH Lab Routine Hypothyroidism, unspecified type 1 Occurrences starting 01/14/2019 until 01/15/2020 [facility] Comment on above: 1 Occurrences starting 01/14/2019 until 01/15/2020 End: 07-03-2018 TSH with Reflex Free T4 TSH with Reflex Free T4 Routine Hypothyroidism, unspecified type 1 Occurrences starting 07/03/2017 until 07/03/2018 [facility] Work Phone: End: 02-25-2025 Ultrasound renal artery stenosis hypertension limited Ultrasound renal artery stenosis hypertension limited Vascular Ultrasound Routine Renal insufficiency 1 Occurrences starting 12/26/2023 until 02/25/2025 [facility] Work Phone: Comment on above: 1 Occurrences starting 12/26/2023 until 02/25/2025 End: 02-25-2025 US Abdominal Aortic Aneurysm Duplex (AAA) US Abdominal Aortic Aneurysm Duplex (AAA) Vascular Ultrasound Routine 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) 1 Occurrences starting 12/26/2023 until 02/25/2025 [facility] Comment on above: 1 Occurrences starting 12/26/2023 until 02/25/2025 End: 01-21-2025 US Doppler ankle/brachial index US Doppler ankle/brachial index Vascular Ultrasound Routine PVD (peripheral vascular disease) (HCC) Ischemia of toe 1 Occurrences starting 11/22/2023 until 01/21/2025 [facility] Work Phone: Comment on above: 1 Occurrences starting 11/22/2023 until 01/21/2025 Immunizations Immunization Date Immunization Notes Care Provider Naveed avera [facility] 10-20-2023 Pfizer SARS-CoV-2 Vaccination Cate Contreras [facility] Work Phone: [facility] 02-19-2019 influenza virus vacc ine, unspecified formulation Michelle [facility],PharmD Work Phone: [facility] Payers Date Payer Category Payer Managed Care (unspecified) [employer] HMO QPOS/SELECT [id number] 05-29-2024 Private Health Insurance [id number] 02-29-2024 Self-pay 05-29-2021 Managed Care HMO (unspecified) [facility] HMO/CHOICE PLUS/CATRINA/[employer] PLUS [id number] 05-29-2021 Unknown [id number] 05-29-2019 Unknown [id number] 05-29-[address] [employer] [facility] [employer] [id number] 05/29/2019-Present [id number]. 2.7.3.400928.315 05-29-2019 Unknown [id number] 1.13.385. 2.7.3.725455.315 03-29-2018 Unknown [id number] 1.2.840.111279.1.13.385. 2.7.3.991516.315 03-29-2017 Private Health Insurance [id number] 2.16.840.1.459454.3.249. 13 06-29-2016 Unknown [id number] 1962 Unknown [id number] 2.16.840.1.952596.3.579. 2.903 1962 Unknown [id number] 2.16.840.1.737506.3.579. 2.903 1962 Unknown [id number] 2.16.840.1.641314.3.579. 2.903 1962 Unknown [id number] 2.16.840.1.106741.3.579. 2.903 1962 Unknown [id number] 2.16.840.1.385590.3.579. 2.903 1962 Unknown [id number] 2.16.840.1.163295.3.579. 2.900 1962 Unknown [id number] 2.16.840.1.802825.3.579. 2.900 1962 Unknown [id number] 2.16.840.1.238048.3.579. 2.900 1962 Unknown [id number] 2.16.840.1.984788.3.579. 2.900 1962 Unknown [id number] 2.16.840.1.610315.3.579. 2.900 1962 Unknown [id number] 2.16.840.1.569044.3.579. 2.903 1962 Unknown [id number] 2.16.840.1.305623.3.579. 2.903 1962 Unknown [id number] 2.16.840.1.152908.3.579. 2.903 1962 Unknown [id number] 2.16.840.1.512768.3.579. 2.903 1962 Unknown [id number] 2.16.840.1.556749.3.579. 2.903 1962 Unknown [id number] 2.16.840.1.368463.3.579. 2. 1962 Unknown [id number] 2.16.840.1.184945.3.579. 2.90 1962 Unknown [id number] 2.16.840.1.309749.3.579. 2 1962 Unknown [id number] 2.16.840.1.800395.3.579. 2 1962 Unknown [id number] 2.16.840.1.547417.3.579. 2 1962 Unknown [id number] 2.16.840.1.862717.3.579. 2. 1962 Unknown [id number] 2.16.840.1.836127.3.579. 2 1962 Unknown [id number] 2.16.840.1.464566.3.579. 2.3 1962 Unknown [id number] 2.16.840.1.596057.3.579. 2 1962 Unknown [id number] 2.16.840.1.087755.3.579. 2.903 1962 Unknown [id number] 2.16.840.1.983118.3.579. 2. 1962 Unknown [id number] 2.16.840.1.173721.3.579. 2.903 1962 Unknown [id number] 2.16.840.1.119578.3.579. 2.90 1962 Unknown [id number] 2.16.840.1.801869.3.579. 2.903 1962 Unknown [id number] 2.16.840.1.389953.3.579. 2.903 1962 Unknown [id number] 2.16.840.1.965944.3.579. 2.903 1962 Unknown [id number] 2.16.840.1.123766.3.579. 2.90 1962 Unknown [id number] 2.16.840.1.203433.3.579. 2.903 1962 Unknown [id number] 2.16.840.1.569741.3.579. 2.90 1962 Unknown [id number] 2.16.840.1.505597.3.579. 2.903 1962 Unknown [id number] 2.16840.1.982583.3.579. 2. 1962 Unknown [id number] 2.16.840.1.538338.3.579. 2.90 1962 Unknown [id number] 2.16.840.1.268119.3.579. 2. 1962 Unknown [id number] 2.16.840.1.656019.3.579. 2.903 1962 Unknown [id number] 2.16.840.1.454282.3.579. 2. 1962 Unknown [id number] 2.16.840.1.743444.3.579. 2.90 1962 Unknown [id number] 2.16840.1.440006.3.579. 2.90 1962 Unknown [id number] 2.16.840.1.005567.3.579. 2.903 1962 Unknown [id number] 2.16.840.1.086256.3.579. 2.903 Private Health Insurance [id number] 2.16.840.1.861788.3.249. 13 Unknown [id number] 2.16.840.1.867685.3.579. 2.462 Unknown [id number] 2.16.840.1.847683.3.579. 2.462 Unknown [id number] 2.16.840.1.363034.3.579. 2.462 Unknown [id number] 2.16840.1.497659.3.579. 2.462 Unknown [id number] 2.840.1.496365.3.579. 2.462 Unknown [id number] 2.840.1.841533.3.579. 2.462 Unknown [id number] 2.840.1.356928.3.579. 2.462 Unknown [id number] 2.840.1.119024.3.579. 2.462 Unknown [id number] 2.840.1.562732.3.579. 2.462 Unknown [id number] 2.840.1.559641.3.579. 2.462 Unknown [id number] 2.840.1.320591.3.579. 2.462 Unknown [id number] 2.840.1.028235.3.579. 2.462 Unknown [id number] 2.840.1.189993.3.579. 2.462 Unknown [id number] 2.840.1.434495.3.579. 2.462 Unknown [id number] 2.16.840.1.311139.3.579. 2.462 Unknown [id number] 2.16.840.1.322563.3.579. 2.462 Unknown [id number] 2.16.840.1.420470.3.579. 2.462 Unknown [id number] 2.16840.1.479688.3.579. 2.462 Unknown [id number] 2.16.840.1.079223.3.579. 2.462 Unknown [id number] 2.16.840.1.674455.3.579. 2.462 Unknown [id number] 2.16.840.1.120258.3.579. 2.462 Unknown [id number] 2.16.840.1.185972.3.579. 2.462 Unknown [id number] 2.16.840.1.865338.3.579. 2.462 Unknown [id number] 2.16.840.1.121663.3.579. 2.462 Unknown [id number] 2.16.840.1.949599.3.579. 2.462 Unknown [id number] 2.16.840.1.624053.3.579. 2.462 Unknown [id number] 2.16.840.1.520535.3.579. 2.462 Unknown [id number] 2.16.840.1.149410.3.579. 2.462 Unknown [id number] 2.16.840.1.886951.3.579. 2.462 Unknown [id number] 2.16.840.1.077956.3.579. 2.462 Unknown [id number] 2.16.840.1.789867.3.579. 2.462 Unknown [id number] 2.16.840.1.345344.3.579. 2.462 Unknown [id number] 2.16.840.1.882870.3.579. 2.462 Unknown [id number] 2.16.840.1.226247.3.579. 2.462 Unknown [id number] 2.16.840.1.970402.3.579. 2.462 Unknown [id number] 2.16.840.1.377473.3.579. 2.462 Unknown [id number] 2.16.840.1.779836.3.579. 2.462 Unknown [id number] 2.16.840.1.670110.3.579. 2.462 Unknown [id number] 2.16.840.1.899854.3.579. 2.462 Unknown [id number] 2.16.840.1.922070.3.579. 2.462 Unknown [id number] 2.16.840.1.256387.3.579. 2.462 Unknown [id number] 2.16.840.1.475980.3.579. 2.462 Unknown [id number] 2.16.840.1.326700.3.579. 2.462 Unknown [id number] 2.16.840.1.413926.3.579. 2.462 Unknown [id number] 2.16.840.1.798444.3.579. 2.462 Unknown [id number] 2.16.840.1.689592.3.579. 2.462 Unknown [id number] 2.16.840.1.085770.3.579. 2.462 Unknown [id number] 2.16.840.1.570054.3.579. 2.462 Unknown [id number] 2.16.840.1.676196.3.579. 2.462 Unknown [id number] 2.16.840.1.723012.3.579. 2.462 Unknown [id number] 2.16.840.1.434645.3.579. 2.462 Unknown [id number] 2.16.840.1.995023.3.579. 2.462 Unknown [id number] 2.16.840.1.237937.3.579. 2.462 Unknown [id number] 2.16.840.1.059256.3.579. 2.462 Unknown [id number] 2.16.840.1.963653.3.579. 2.462 Unknown [id number] 2.16.840.1.328202.3.579. 2.462 Unknown [id number] 2.16.840.1.004112.3.579. 2.462 Unknown [id number] 2.16.840.1.001295.3.579. 2.462 Unknown [id number] 2.16.840.1.707339.3.579. 2.462 Unknown [id number] 2.16.840.1.712872.3.579. 2.462 Unknown [id number] 2.16840.1.583200.3.579. 2.462 Unknown [id number] 2.16.840.1.229649.3.579. 2.462 Unknown [id number] 2.840.1.388709.3.579. 2.462 Unknown [id number] 2.840.1.933036.3.579. 2.462 Unknown [id number] 2.840.1.373466.3.579. 2.462 Unknown [id number] 2.840.1.176608.3.579. 2.462 Unknown [id number] 2.16840.1.653742.3.579. 2.462 Unknown [id number] 2.16840.1.184671.3.579. 2.462 Unknown [id number] 2.16840.1.002179.3.579. 2.462 Unknown [id number] 2.16.840.1.858003.3.579. 2.462 Unknown [id number] 2.16.840.1.221777.3.579. 2.462 Unknown [id number] 2.16.840.1.560872.3.579. 2.462 Unknown [id number] 2.16840.1.062138.3.579. 2.462 Unknown [id number] 2.16840.1.890479.3.579. 2.462 Social History Date Type Detail Facility Start: 05-05-1996 End: 08-24-2023 Tobacco smoking status NHIS Current every day smoker [facility] Work Phone: Start: 05-05-1996 End: 10-08-2023 History of tobacco use Cigarette Smoker [facility] Work Phone: Start: 09-05-2017 End: 03-12-2024 Cigarettes smoked current (pack per day) - Reported [facility] Start: 1960 Sex Assigned At Not on file [facility] Work Phone: Start: 05-05-2016 Alcohol Comment Occassionally [facility] Start: 09-14-2018 End: 09-15-2024 Tobacco smoking status INIS Former smoker [facility] Start: 04-17-2019 End: 12-06-2019 Alcohol intake Current drinker of alcohol (finding) [facility] Start: 01-14-2019 End: 09-29-2020 History SDOH Social Connections Get Together 4 [facility] Start: 01-14-2019 End: 05-12-2021 History SDOH Food Worry 1 [facility] Start: 05-05-1996 End: 11-28-2022 Tobacco smoking status INIS Current some day smoker [facility] Start: 10-25-2021 End: 10-25-2022 Exposure to SARS-CoV-2 (event) Not sure [facility] Start: 12-06-2019 End: 12-26-2023 Tobacco use and exposure Never used [facility] Start: 09-29-2020 History SDOH Financial 5 [facility] Start: 05-12-2021 End: 11-18-2021 History SDOH Social Connections Phone 2 [facility] Start: 04-06-2022 End: 07-29-2024 Alcohol intake Ex-drinker (finding) [facility] Start: 06-13-2022 End: 11-28-2022 Tobacco Comment I am down to 4 cigerettes a day [facility] [facility] Start: 05-12-2021 End: 03-12-2024 Social connection and isolation panel [facility] Frequency of Social Gatherings with Friends and Family Not on file [facility] How often to you hav e a drink containing alcohol? Monthly or less [facility] How many standard drinks containing alcohol do you have on a typical day? 1 or 2 [facility] How often do you hav e 6 or more drinks on 1 occasion? Never [facility] (I/We) worried dionnath er (my/our) food would run out before (I/we) got money to buy more. Never true [facility] In the past 12 month s, was there a time when you were not able to pay the mortgage or rent on time? No [facility] Start: 12-04-2017 Gender identity Identifies as female gender (finding) [facility] Start: 12-04-2017 Sexual orientation Heterosexual (finding) [facility] Start: 05-05-1996 End: 10-08-2023 History of tobacco use Current smoker [facility] Start: 08-14-2024 End: 09-15-2024 Sex Female (finding) [facility] Start: 1960 Sex Assigned At Female [facility] Medical Equipment Procedure Code Equipment Code Equipment Origin al Text Equipment Identifier Dates EGD, with monitored anesthesia care FDA Start: 07-24-2024 EGD, with monitored anesthesia care [id number] FDA Start: 08-03-2024 EGD, with monitored anesthesia [...] FDA Start: 07-24-2024 Closure Perclose Prostyle - [id number] ()[id number], [id number] FDA Start: 10-09-2023 Endograft 26 X 14.5mm 12cm Excluder Comformable Trunk - [id number] ()[id number])68 [id number], 0_imp, _exp FDA Start: 10-09-2023 Endograft 12mm X 12cm Excluder Leg - [id number] ()[id number])[id number], [id number]_[facility] FDA Start: 10-10-2023 Comment on above: Description: RIGHT E XTENDER Endograft 12mm X 14cm Contralateral Leg Excluder [id number] - [id number] ()[id number])26 [id number], [id number]_[facility] FDA Start: 10-10-2023 Comment on above: Description: LEFT CO NTRALATERAL LEG Stent 6 X 39mm 1 35cm Viabahn Vbx - [id number] ()[id number])24 [id number], _imp FDA Start: 10-09-2023 Comment on above: Description: LEFT RE NAL Tray 14fr 24cm S plit Cath Iii - [id number] [id number]_[facility] Start: 02-01-2024 Graft 20 X 10mm 40cm Hemashield Bifurcated - [id number] ()[id number](17)28 [id number])[id number](21) [id number], 3184_[facility] FDA Start: 01-24-2024 Hemostat 2 X 4in Surgicel Fibrillar - [id number])10 0XR5, 308_[facility] FDA Start: 01-24-2024 Syringe 10ml Pre-Filled 5pk Bioglue - [id number] 3197_[facility] Start: 01-24-2024 Goals Date Patient Goal Desired Activity /State Functional Status Date Assessment Result Facility 08-17-2024 Functional status Bedrest [facility] Work Phone: 08-13-2024 Functional status Bedrest [facility] Work Phone: 07-29-2024 Functional status Bedrest [facility] Work Phone: Mental Status Date Assessment Result Facility 08-17-2024 Cognitive function Voice/Name [facility] Work Phone: 08-13-2024 Cognitive function Voice/Name [facility] Work Phone: 07-29-2024 Cognitive function Voice/Name [facility] Work Phone: 07-18-2024 Cognitive function Awake;Drowsy [facility] Work Phone: Clinical Notes 07-29-2020 to 09-15-2024 Sol Huerta RN - 08/23/2024 4:25 PM EDT Note Date & Type Note Facility 09-15-2024 Radiology Diagnostic study note [facility] 08-23-2024 History of Present illness Narrative [...] 12 mo f/u. documented in this encounter [facility] 08-17-2024 Discharge summary Note Date/Time August 17, 2024 9:32am [facility] Medical Records Department [address] [place] [address] Discharge Summary 08/17/24 0922 MR#: [id number] Acct: [id number] Name: SCOTT OBREGON Rep #:[id number] : 1960 64 From: Nikolas Bradley PCP: Millie Massey MD Status:ADM IN Location: [place] [id number] Providers Date of Admission: 08/14/24 Date [...] had recovery. Patient on dialysis every Monday. Glass Cutter consulted 08/15: She feels much better after dialysis. 08/16: GPC possible Enterococcus 11,000?25. Growing GNR lactose content developer 1000-10,000 mixed organisms suggestive of contamination and [...] advanced directive but has legal power of deputy commonwealth's attorney for health.. After discussion of benefits/risks [...] Culture - Preliminary Enterococcus faecium GNR lactose content developer 08/14/24 08:50 Blood Culture (Wb) - Anticubital [...] 73.5 H, Lymph % (Auto) 13.4 L, Childress % (Auto) 7.0, Eos % (Auto) 3.4, [...] bisacodyl 10 mg rectal suppository 10 mg AK DAILY PRN constipation 07/31/24 cholecalciferol (vitamin D3) [...] acetaminophen 650 mg rectal suppository 650 mg AK Q4H PRN fever or pain 08/14/24 dextrose 40 % oral gel (Glucose Gel) 10 g PO Q15M PRN hypoglycemia 08/14/24 mirtazapine 15 mg tablet 15 mg PO QHS 08/14/24 sodium phosphates 19 gram-7 gram/118 mL enema (Enema) 118 ml AK DAILY PRN constipation 08/14/24 IV with Additives [...] 73.5 H, Lymph % (Auto) 13.4 L, Childress % (Auto) 7.0, Eos % (Auto) 3.4, [...] Culture - Preliminary Enterococcus faecium GNR lactose content developer 08/14/24 08:50 Blood Culture (Wb) - Anticubital Left Blood Culture - Preliminary No growth in 48 hours. 08/14/24 07:48 Blood Culture (Wb) - Anticubital Left Blood Culture - Preliminary No growth in 48 hours. 03/19/25 07:35 Mucosa - Nose SARS-CoV-2, Influenza & [...] tx acetaminophen 650 mg suppository 650 mg AK Q4H PRN (Reason: fever or pain) Enema 19-7 gram/118 mL enema 118 ml AK DAILY PRN (Reason: constipation) Rx Instructions: NEEDED [...] DISTRESS) bisacodyl 10 mg suppository 10 mg AK DAILY PRN (Reason: constipation) glucagon HCl [Glucagon [...] NH/Intermed Care Charges/Coding Visit Charges Inpatient E&M: 28528 Disch Hosp >30min 08/17/24 0932 <Electronically signed by Nikolas Magaña MD> Cosigner Signature (if applicable): CC: Dr. Nikolas Magaña MD; Millie Massey MD~ Signed [facility] Work Phone: 1(146) 840-564303-22-2025 Discharge summary Author Nikolas Magaña [facility] Note Date/Time August 17, 2024 9:2 2am [facility] Medical Records Department [address] [place] [address] Transfer to [facility] MR#: [id number] Acct: [id number] Name: SCOTT OBREGON Rep #:[id number] : 1960 64 From: Nikolas Bradley PCP: Millie Massey MD Status:ADM IN Certification of patient admission REQUIRED AT TIME OF ADMISSION. I CERTIFY THAT POST-HOSPITAL F SERVICES ARE REQUIRED TO BE GIVEN ON AN IN-PATIENT BASIS BECAUSE OF THE ABOVE NAMED PATIENT'S NEED FOR [facility] CARE ON A CONTINUING BASIS FOR THE CONDITION(S) FOR WHICH HE/SHE WAS RECEIVING IN-PATIENT HOSPITAL SERVICES PRIOR TO HIS/HER TRANSFER TO THE [facility]. 08/17/24 09<Electronically signed by Nikolas Magaña MD> Diet Diet [...] had recovery. Patient on dialysis every Monday. Glass Cutter consulted 08/15: She feels much better after dialysis. 08/16: GPC possible Enterococcus 11,000?25. Growing GNR lactose content developer 1000- 10,000 mixed organisms suggestive of contamination [...] advanced directive but has legal power of deputy commonwealth's attorney for health.. After discussion of benefits/risks [...] Preliminary GPC Poss Enterococcus sp GNR lactose content developer 08/14/24 07:35 Mucosa - Nose SARS-CoV-2, Influenza [...] 76.6 H, Lymph % (Auto) 10.9 L, Childress % (Auto) 7.0, Eos % (Auto) 2.4, Baso % (Auto) 0.7, Absolute Neuts (auto) 3.2, Absolute Lymphs (auto) 0.45 L, Nucleated RBC % 0, [place]is[place]1+, [place] [address] H, Triglycerides 71, Cholesterol 62, LDL Cholesterol, [...] meet estimated nutrition needs. Will order 4oz Praomd BID medpass once diet has been advanced. Advance diet as tolerated to Regular with texture/consistency per COAT JOINER LOCKSTITCH when medically able for pleasure. Discharge Plan [...] tx acetaminophen 650 mg suppository 650 mg AK Q4H PRN (Reason: fever or pain) Enema 19-7 gram/118 mL enema 118 ml AK DAILY PRN (Reason: constipation) Rx Instructions: NEEDED [...] DISTRESS) bisacodyl 10 mg suppository 10 mg AK DAILY PRN (Reason: constipation) glucagon HCl [Glucagon [...] Order can be placed): NonSkilled NH/Intermed Care 08/17/24 0922 <Electronically signed by Nikolas Magaña MD> Cosigner Signature (if applicable): CC: Dr. Angie Torres MD; Millie Massey MD ~ [facility] Work Phone: 1(993) 222-104803-22-2025 [facility]03-21-2025 Progress note Author Nikolas Magaña [facility] Note Date/Time August 16, 2024 3:3 0pm [facility] Medical Records Department [address] [place] [address] Progress Note - Hospitalist 08/16/24 1522 MR#: [id number] Acct: [id number] Name: OBREGONSCOTT RODRIGUEZ Rep #:[id number] : 1960 64 From: Nikolas Bradley PCP: Millie Massey MD Status:ADM IN Location: [place] [address] Reason for Visit Reason for Visit: Diagnoses [...] % (Auto) 69.9, Lymph % (Auto)12.7 L, Childress % (Auto) 10.5 H, Eos % (Auto) [...] Preliminary GPC Poss Enterococcus sp GNR lactose content developer 08/15/24 09:19 Fluid - Pleural (Lung) Gram [...] Ms. ESPINOSA on the phone inclusions of case management associate, web content & social media manager and patient's nurse. Patient not short [...] had recovery. Patient on dialysis every Monday. Glass Cutter consulted 08/15: She feels much better after dialysis. 08/16: GPC possible Enterococcus 11,000?25. Growing GNR lactose content developer 1000- 10,000 mixed organisms suggestive of contamination [...] advanced directive but has legal power of deputy commonwealth's attorney for health.. After discussion of benefits/risks [...] Preliminary GPC Poss Enterococcus sp GNR lactose content developer 08/14/24 07:35 Mucosa - Nose SARS-CoV-2, Influenza [...] 76.6 H, Lymph % (Auto) 10.9 L, Childress % (Auto) 7.0, Eos % (Auto) 2.4, Baso % (Auto) 0.7, Absolute Neuts (auto) 3.2, Absolute Lymphs (auto) 0.45 L, Nucleated RBC % 0, Anisocytosis1+, [place] [address] H, Triglycerides 71, Cholesterol 62, LDL Cholesterol, [...] both sisters Sriram and Laisha along with case management associate and web content & social media manager and patient's nurse for more than [...] active complex medical conditions), discussion with the catering attendant, review of labs and imaging is 45minutes. Visit Charges Inpatient E&M: 46876 Subs Hosp L3 08/16/24 1530 <Electronically signed by Nikolas Magaña MD> Cosigner Signature (if applicable): CC: ~ Signed [facility] Work Phone: 1(919) 770-536703-20-2025 Consult note Author Meghan Alfaro [facility] Note Date/Time August 15, 2024 9:3 5pm [facility] Medical Records Department [address] [facility] [place] [address] Consultation - Nephrology 08/15/24 1138 MR#: [id number] Acct: [id number] Name: SCOTT OBREGON Singh Rep #:[id number] : 1960 64 From: Meghan MOORE PCP: Millie Massey MD Status:ADM IN Location: [place] [address] Documented by User: OSCAR Hayward 08/15/24 11:53 [...] fluid removed. I contacted patient's POA Sriram ([phone]), who also had other sister Geeta (from [place]) in on phone conversation and I updated [...] ESRD who currently dialyzes Monday schedule at [facility] via tunneled hemodialysis catheter who presented back to the emergency room yesterday from [facility] with complaints of worsening shortness of breath. Chestx-ray in the emergency room showing pulmonary edema, bilateral pleural effusions. Patient had dialysis yesterday, only able to tolerate about 1.7L fluid removal. Had thoracentesis with around 500ml fluid removed. Patient alert,drowsy, no complaints today. 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) Open abdominal wall wound Factor 5 Leiden mutation, heterozygous Failure to thrive meterman (current) use of anticoagulants Gross hematuria Retroperitoneal [...] mg tablet 25 mg PO DAILY 07/18/2406/30 5/25 History vitamin B complex-vitamin C-folic 1 tab PO DAILY 07/1807/23/24 History acid 0.8 mg tablet (Renal Vitamin) bisacodyl 10 mg rectal suppository 10 mg AK DAILY PRN constipation 07/31/24 Unknown History cholecalciferol [...] release acetaminophen 650 mg rectal 650 mg AK Q4H PRN fever or pain 08/14/24 Unknown History suppository dextrose 40 % oral gel (Glucose 10 g PO Q15M PRN hypog lycemia 08/14/24 Unknown History Gel) mirtazapine 15 mg tablet 15 mg PO QHS 08/14/24 Unknow n History sodium phosphates 19 gram-7 118 ml AK DAILY PRN consti pation 08/14/24 Unknown History [...] 76.6 H, Lymph % (Auto) 10.9 L, Childress % (Auto) 7.0, Eos % (Auto) 2.4, Baso % (Auto) 0.7, Absolute Neuts (auto) 3.2, Absolute Lymphs (auto) 0.45 L, Nucleated RBC % 0, [place]isocytosis1+, [place] [address] H, Triglycerides 71, Cholesterol 62, LDL Cholesterol, [...] thoracentesis. No evidence of pneumothorax. Reading Location: [facility] Documented by User: Dr. Angie Torres MD [...] with ~500ml fluid removed. 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) Open abdominal wall wound Factor 5 Leiden mutation, heterozygous Failure to thrive meterman (current) use of anticoagulants Gross hematuria Retroperitoneal [...] bisacodyl 10 mg rectal suppository 10 mg AK DAILY PRN constipation 07/31/24 Unknown History cholecalciferol [...] release acetaminophen 650 mg rectal 650 mg AK Q4H PRN fever or pain 08/14/24 Unknown History suppository dextrose 40 % oral gel (Glucose 10 g PO Q15M PRN hypog lycemia 08/14/24 Unknown History Gel) mirtazapine 15 mg tablet 15 mg PO QHS 08/14/24 Unknow n History sodium phosphates 19 gram-7 118 ml AK DAILY PRN consti pation 08/14/24 Unknown History [...] Torres MD> CC: Millie Massey MD~ Signed [facility] Work Phone: 1(858) 568-475303-20-2025 Progress note Author Nikolas Magaña [facility] Note Date/Time August 15, 2024 5:2 2pm [facility] Medical Records Department [address] [place] [address] Progress Note - Hospitalist 08/15/24 0811 MR#: [id number] Acct: [id number] Name: SCOTT OBREGON Rep #:[id number] : 1960 64 From: Nikolas Bradley PCP: Millie Massey MD Status:ADM IN Location: [place] [address] Reason for Visit Reason for Visit: Diagnoses [...] 79.5 H, Lymph % (Auto) 8.6 L, Childress % (Auto) 6.1, Eos % (Auto) 1.9, [...] Sl. Cloudy, Urine pH 8.0, Ur Specific [place] 1.010, Urine Protein 30 H, Urine Glucose [...] 76.6 H, Lymph % (Auto) 10.9 L, Childress % (Auto) 7.0, Eos % (Auto) 2.4, Baso % (Auto) 0.7, Absolute Neuts (auto) 3.2, Absolute Lymphs (auto) 0.45 L, Nucleated RBC % 0, [place]isocytosis1+, [place] [address] H, Triglycerides 71, Cholesterol 62, LDL Cholesterol, [...] excluded. 2. Bilateral pleural effusions. Reading Location: [facility] Physical Exam Narrative Physical exam General: Alert, [...] had recovery. Patient on dialysis every Monday. Glass Cutter consulted 08/15: She feels much better after [...] advanced directive but has legal power of deputy commonwealth's attorney for health.. After discussion of benefits/risks [...] Preliminary GPC Poss Enterococcus sp GNR lactose content developer 08/14/24 07:35 Mucosa - Nose SARS-CoV-2, Influenza [...] 76.6 H, Lymph % (Auto) 10.9 L, Childress % (Auto) 7.0, Eos % (Auto) 2.4, Baso % (Auto) 0.7, Absolute Neuts (auto) 3.2, Absolute Lymphs (auto) 0.45 L, Nucleated RBC % 0, [place]is[place]1+, [place] [address] H, Triglycerides 71, Cholesterol 62, LDL Cholesterol, [...] Glucose 90 Charges/Coding Visit Charges Inpatient E&M: 04609 Subs Hosp L2 08/15/24 1710 <Electronically signed [...] Cosigner Signature (if applicable): cc: ~* Signed [facility] Work Phone: 1(190) 102-727003-20-2025 History of Present illness Narrative* Jennifer Hernandez [...] coordinate transition of care. documented in this [id number] Procedure [facility]03-20-2025 Procedure [facility]03-20-2025 Radiology Diagnostic study [facility]03-19-2025 Discharge summary Author Ciaran Rodrigez [facility] Note Date/Time August 14, 2024 5:1 2pm [facility] Medical Records Department [address] [place] [address] Emergency Department Summary 08/14/24 MR#: [id number] Acct: [id number] Name: SCOTT OBREGON Rep #:[id number] : 1960 64 From: Ciaran raymundo DO PCP: Millie Massey MD Status:ADM IN Location: [place] [id number] HPI History of Present Illness Chief Complaint: Shortness of Breath Narrative Narrative: Chief complaint and HPI: Shortness of breath. 64-year-old female with history of ESRD on HD Monday, Monday, Monday, failure to thrive with PEG tube, AAA, factor V Leiden, HLD presents for evaluation of shortness of breath. Patient resides at [facility]. Per their report patient became short of [...] intact Psych: Cooperative, appropriate mood and affect [facility] Medical History (Updated 08/14/24 @ 12:[address] 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 to thrive meterman (current) use of anticoagulants Gross hematuria Retroperitoneal [...] bisacodyl 10 mg rectal suppository 10 mg AK DAILY PRN constipation 07/31/24 Unknown History cholecalciferol [...] release acetaminophen 650 mg rectal 650 mg AK Q4H PRN fever or pain 08/14/24 Unknown History suppository dextrose 40 % oral gel (Glucose 10 g PO Q15M PRN hypog lycemia 08/14/24 Unknown History Gel) mirtazapine 15 mg tablet 15 mg PO QHS 08/14/24 Unknow n History sodium phosphates 19 gram-7 118 ml AK DAILY PRN consti pation 08/14/24 Unknown History [...] 79.5 H Lymph % (Auto) 8.6 L Childress % (Auto) 6.1 Eos % (Auto) 1.9 [...] Sl. Cloudy Urine pH 8.0 Ur Specific [place] 1.010 Urine Protein 30 H Urine Glucose [...] (Auto) Neut % (Auto) Lymph % (Auto) Childress % (Auto) Eos % (Auto) Baso % [...] Color Urine Clarity Urine pH Ur Specific [place] Urine Protein Urine Glucose (UA) Urine Ketones [...] excluded. 2. Bilateral pleural effusions. Reading Location: [facility] Discharge Plan Disposition Disposition: Acute Care Hospital [facility] Discharge Date/Time: 08/14/24 12:48 What to do if you have Problems For any increased pain, shortness of breath, bleeding, nausea or vomiting, chestpain, or any unexpected problems, contact your Primary Care Provider. Call [facility] ([phone]) or report to the closest Emergency Room. Call 911 if necessary. 08/14/24 1712 <Electronically signed by Ciaran Rodrigez DO> Cosigner Signature (if applicable): CC: Millie Massey MD ~ Signed [facility] Work Phone: 1(355) 260-696403-19-2025 History and physical note Author Nikolas Magaña [facility] Note Date/Time August 14, 2024 1:0 0pm [facility] Medical Records Department [address] [facility] [place] [address] H&P Exam - Hospitalist 08/14/24 1221 MR#: [id number] Acct: [id number] Name: SCOTT OBREGON Rep #:[id number] : 1960 64 From: Nikolas Bradley PCP: Millie Massey MD Status:ADM IN Location: [facility] [id number] HPI - General General Date of Admission: 08/14/24 Date of Service: 08/14/24 Chief Complaint: Shortness of breath, could not breathe HPI Narrative SCOTT OBREGON, is a 64 F who was just discharged yesterday to [facility] came to ED feeling shortness of breath, [...] admittedfor pulmonary edema/anasarca. Need hemodialysis [facility] Medical History (Updated 08/14/24 @ 12:[address] 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 to thrive long-term (current) use of anticoagulants Gross hematuria Retroperitoneal [...] 81 mg tablet,delayed 81 mg PO DAILY 10/14/24 0 07/23/24 History release (Adult Aspirin Regimen) [...] bisacodyl 10 mg rectal suppository 10 mg AK DAILY PRN constipation 07/31/24 Unknown History cholecalciferol [...] release acetaminophen 650 mg rectal 650 mg AK Q4H PRN fever or pain 08/14/24 Unknown History suppository dextrose 40 % oral gel (Glucose 10 g PO Q15M PRN hypog lycemia 08/14/24 Unknown History Gel) mirtazapine 15 mg tablet 15 mg PO QHS 08/14/24 Unknow n History sodium phosphates 19 gram-7 118 ml AK DAILY PRN consti pation 08/14/24 Unknown History [...] 79.5 H, Lymph % (Auto) 8.6 L, Childress % (Auto) 6.1, Eos % (Auto) 1.9, [...] Sl. Cloudy, Urine pH 8.0, Ur Specific [place] 1.010, Urine Protein 30 H, Urine Glucose [...] excluded. 2. Bilateral pleural effusions. Reading Location: [facility] Assessment & Plan Assessment/Plan (1) Pulmonary edema: [...] but from chest x-ray discussed with Dr. Navarro and seems small pleural effusion 3. Recent [...] advanced directive but has legal power of deputy commonwealth's attorney for health.. After discussion of benefits/risks [...] shock if needed Total time spent in that-po-vvjv encounter in discussion of advanced directive 17 minutes. Charges/Coding Visit Charges Inpatient E&M: 97114 Init Hosp L3 Procedures Hospitalists Procedures: 76096 Advncd Care Plan 30 Min 08/14/24 1300 <Electronically signed by Nikolas Magaña MD> Cosigner Signature (if applicable): CC: Dr. Nikolas Magaña MD; Millie Massey MD~ Signed [facility] Work Phone: 1(570) 392-164003-19-2025 Radiology Diagnostic study [facility]03-18-2025 [facility]03-03-2025 Note [facility]02-25-2025 Evaluation note* Diagnosis Onset Date Resolution Status Admit Date End stage renal disease resolved F ebruary [...] 31 3:42pm End stage renal disease resolved M 2024 3:42pm Hypoglycemia resolved July 31 3:42pm Raynaud disease inactive July 3:42pm Anasarca acute August 14 11:52am Pleural effusion acute August 142024 11:52am Pulmonary edema acute July 11:52am End stage renal disease resolved M arch 2024 11:52am [facility] Work Phone: 1(517) 921-944602-05-2025 NoteShoot thanks. AUTHENTICATED BY YING QUISPE, ON 07/03/2024 13:05:25[facility]02-05-2025 History of Present illness Narrative* Ying Quispe DO - 07/03/2024 1:05 PM EST Shoot thanks. * Codie Garcia, RN - 07/03/2024 11:12 AM EST Care Management Referral received from PCP office ESTHER/Angela- spoke with John mills- he confirms that referral received but pt chose to go with another [facility]. Spoke with pt introduced self, role and purpose of call. Pt states she did not get discharged. She stated some things changed. Pt had difficult time in telling this RNCM what facility she was at - eventually [facility]. Pt unsure of discharge date No future appointments. BP Readings from Last 3 Encounters: 04/04/24 (!) 82/60 03/20/24 (!) 147/68 02/25/24 100/67 documented in this [id number] History of Present illness Narrative* Codie Garcia RN - 07/02/2024 10:53 AM EST Care Management Referral received from PCP office 07/02/24 first attempt to contact Scott Obregon regarding Transition of Care Follow Up. Unable to initiate due to No Answer, Left Message, I will continue to try later Provided Care Management Introduction Letter, Today via [employer]- attempted to contact unsuccessfully, left voice message with contact information provided. BP Readings from Last 3 Encounters: 04/04/24 (!) 82/60 03/20/24 (!) 147/68 02/25/24 100/67 No future appointments. documented in this [id number] Evaluation note* Diagnosis Onset Date Resolution Status [...] disease resolved 2024 3:42pm Hypoglycemia resolved July 31, 025 3:42pm Raynaud disease inactive July 3:42pm Anasarca acute August 14 11:52am Pleural effusion acute August 142024 11:52am Pulmonary edema acute July 11:52am End stage renal disease resolved [facility] 2024 11:52am [facility] Work Phone: 1(212) 474-777312-03-2024 Evaluation note* Diagnosis Onset Date Resolution Status [...] 2024 3:42pm End stage renal disease inactive [facility] 2024 3:42pm Anasarca acute August 14 11:52am Pulmonary edema acute July 11:52am [facility] Work Phone: 1(310) 816-425112-03-2024 Evaluation note* Diagnosis Onset Date Resolution Status [...] 2024 5:23pm Unspecified severe protein-calorie malnutrition inactive Feb ruary 2024 5:23pm ABLA (acute blood loss anemia) acute July 31, 2024 3:42pm Abnormal CT of the abdomen acute July 31, 2024 3:42pm Acute upper gastrointestinal bleeding acute July 31, 2024 3:42pm Anemia acute July 31 3:42pm Chronic anticoagulation acute 2024 3:42pm Coffee ground emesis acute Jamal 2024 3:42pm Diarrhea acute July 31 3:42pm End stage renal disease acute M 2024 3:42pm Factor V Leiden acute July 3:42pm GI bleed acute July 31 3:42pm Hypoglycemia acute July 31, 025 3:42pm Raynaud disease acute July 3:42pm Chronic kidney disease with end stage renal 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 chronic July 31, 2024 3:42pm Anasarca acute August 14 11:52am End stage renal disease acute [facility] 2024 11:52am Pleural effusion acute August 142024 11:52am Pulmonary edema acute July 11:52am [facility] Work Phone: 1(876) 720-296511-08-2024 History of Present illness Narrative* Corrina Dawn MA - 04/05/2024 2:45 PM EST Referral for hospice care and office note from Cate Contreras CNP 04/04/24 faxed to [facility] [phone]. documented in this [id number] History of Present illness Narrative* Cate Contreras CNP - 04/04/2024 10:00 AM EST Images from the original note were not included. Office Visit Patient Name: Scott Obregon MR #: [id number] Assessment/Plan: I saw Scott in the office [...] requiring iHD, wound necrosis who presented to [facility] from [facility] on 03/12/2024 with concerns for wound dehiscence. [...] 1 tablet by mouth every morning . EZOSTVKX-IAJ-CTEF FUM-FOLIC AC (THERA-M) 19 MG IRON- 400 [...] and affect as above Cate Contreras CNP [phone] documented in this [id number] NoteOffice Visit Patient Name: Scott Obregon MR #: [id number] Assessment/Plan: I saw Scott in the office [...] requiring iHD, wound necrosis who presented to [facility] from [facility] on 03/12/2024 with concerns for [...] time, SNF to fax meds PCP:Ying Quispe, No return visit scheduled at this time [...] 1 tablet by mouth every morning . CRJOGDIJ-VQP-SAIV FUM-FOLIC AC (THERA-M) 19 MG IRON- 400 MCG TAB Take 1 tablet by mouth every morning . MULTIVITAMIN (THERAGRAN) PER TABLET Take 1 (one) tablet by mouth daily . ONDANSETRON (ZOFRAN) 4 MG TABLET Take 1 (one) t (more content not included)... [facility] 03-19-20[facility] Lrkqxsep60-33-4359 [facility] Pfkhmozv15-27-4639 [facility] Cklzzaqx74-73-8997 Note [facility] Kttxusmm77-98-0702 [facility] 03-17-2024 [facility] Mssvljgs29-60-1732 [facility] Bllkpmhk53-33-4151 [facility] Jizvjoyn71-71-6007 [facility] Lbuaxjov81-61-5154 [facility] Monvkagc58-06-9899 Note [facility] Jqywmlbk92-48-0306 [facility] 03-15-2024 [facility] Sjyjeweq90-23-2505 [facility] Qehiykct93-19-3079 [facility] Rgswhqhw59-83-9850 [facility] Hsrapqxi49-19-2761 [facility] Sfuihbbc30-34-2229 Note [facility] Lrgktpnr79-97-4635 [facility] 03-13-2024 [facility] Uhsdudxz16-27-4849 [facility] Ziddjuvq73-29-6305 [facility] Wfavskna86-42-9396 [facility] Nxzdwasy23-24-9912 [facility] Cgdmvvvm39-03-7040 Note [facility] Xopwofxx35-54-8343 [facility] 02-23-2024 [facility] Zfnqksvk72-66-9146 [facility] Ynntnetb84-10-9879 [facility] Jnaoyedm56-19-8281 [facility] Ayxkwwth39-04-1432 [facility] Sxiyapqa82-38-6831 Note [facility] Yjehebji60-19-9660 [facility] 02-22-2024 [facility] Ezugiahh94-91-5539 [facility] Wapfvcvo46-94-0450 [facility] Hgabspqg95-02-5556 [facility] Aoltgjnu04-99-1478 [facility] Izbfcfss09-76-1079 Note [facility] Rxueiigr98-49-6719 [facility] 02-19-2024 [facility]09-23-2024 [facility]09-23-2024 [facility]09-23-2024 [facility]09-22-2024 [facility]09-22-2024 Note [facility]09-22-[facility] 02-18-2024 [facility]09-21-2024 [facility] Gbojjzmf87-74-3623 [facility] Lpxbssna52-75-1043 [facility]09-21-2024 [facility]-20-2024 Note [facility]09-20-2024 [facility] 02-16-2024 [facility]-20-2024 [facility]09-19-2024 [facility]09-19-2024 [facility]09-19-2024 NoteChest tube output near 0 Chest x-ray stable Patient tolerating diet No new complaints Remove chest tube Will follow serial chest x-rays/exam AUTHENTICATED BY SRI ROMAN, ON 02/15/2024 09:22:25[facility]iPrem[facility]09-19-2024 [facility]-2024 Note [facility]09-18-2024 [facility] 02-14-2024 [facility]09-18-2024 [facility]09-18-2024 [facility]09-18-2024 [facility]09-17-2024 [facility]09-17-2024 Note [facility]09-17-2024 [facility] 02-13-2024 [facility]09-17-2024 NotePROGRESS :This report has been cancelled.[facility]09-16-2024 [facility]09-16-2024 [facility]09-16-2024 Note Patient stable sleeping this a.m. Chest tube output appears to have diminished over the weekend Chest x-ray with no major changes IR lymph angiogram today AUTHENTICATED BY SRI ROMAN, ON 02/12/2024 08:21:01[facility]09-16-2024 [facility]09-16-2024 Note [facility]09-15-2024 [facility] 02-11-2024 [facility]09-15-2024 [facility]09-14-2024 [facility]09-14-2024 [facility]09-14-2024 [facility]09-14-2024 Note [facility]09-13-2024 [facility] 02-09-[address] [facility]09-13-2024 [facility]09-13-2024 [facility]09-13-2024 [facility]09-13-2024 NotePt w/o new complaints Cxr stable Ct output lower - 95cc serous Flush tube today / pleur evac marked to ensure output accuracy Lymphangiogram planned for monday AUTHENTICATED BY SRI ROMAN, ON 02/09/2024 08:23:39[facility]09-12-20[facility]09-12-2024 Note [facility]09-12-2024 [facility] 02-08-2024 [facility]09-11-2024 [facility]09-11-2024 [facility]09-11-2024 [facility]09-11-2024 [facility]09-10-2024 Note [facility]09-10-2024 [facility] 02-06-2024 [facility]09-10-2024 [facility]09-10-2024 [facility]09-10-2024 [facility]09-09-2024 [facility]09-09-2024 Note [facility] Uveptceh02-27-7146 [facility] 02-05-2024 [facility] Fvfpfufb70-47-4061 [facility] Rstiidpx00-90-8139 [facility] Cdaokqln43-26-2437 [facility] Nlscrlut71-24-7592 [facility] Oowdiefx36-01-2537 Note [facility] Pgxlgaah98-66-2694 [facility] 02-03-2024 [facility] Ksbpschn97-84-0559 [facility] Eowhhviu05-41-0576 [facility] Imeuwuwm69-21-5493 [facility] Duoorbyk92-26-8766 [facility] Hdhxmmom36-37-1218 Note [facility] Itjtwiuf75-53-5172 [facility] 02-02-2024 [facility] Dgfepzqj00-92-9981 [facility] Shflbcsx07-16-6131 [facility] Mpiuguws41-97-3067 [facility] Mnsvgqot88-52-0143 [facility] Bstjomsw16-38-4335 Note [facility] Rjrzoiuy82-39-2844 [facility] 01-31-2024 [facility] Mwlfbitp09-94-0838 [facility] Mvmrlytk85-25-6476 [facility] Kjziuvgw45-71-8841 [facility] Uunznuyv23-56-7743 [facility] Qmdfllxh44-25-8242 Note [facility] Iwhwbimq69-41-5877 [facility] 01-30-2024 [facility] Jykiggxp12-07-3479 [facility] Esounifp58-59-6864 [facility] Veeqirvn09-07-0752 [facility] Bswjyiyx65-25-2601 [facility] Tglelfjm32-05-4709 Note [facility] Eqcflbvg04-99-2209 [facility] 01-27-2024 [facility] Jtlvfadp40-36-4712 [facility] Mijoncbe23-02-1513 NoteMer[facility]08-31-2024 NoteMer[facility]08-30-2024 [facility]08-30-2024 Note [facility]08-30-2024 [facility] 01-26-2024 [facility]Mer[facility]08-29-2024 [facility]08-29-2024 [facility]Mer[facility]08-29-2024 [facility]Mer[facility]08-29-2024 [facility]08-28-2024 Note [facility]08-28-2024 [facility] 01-24-2024 [facility]Mer[facility]08-27-2024 [facility]08-27-2024 [facility]08-27-2024 [facility]08-27-2024 [facility]08-26-2024 Note [facility]08-26-[address] [facility] 01-21-2024 [facility]08-24-2024 [facility]08-21-2024 History of Present illness Narrative* Rafaela Garcias RN - 01/17/2024 10:23 AM EDT Spoke with Sergei in Transfer [facility] and provided details for direct admission to [facility] at [facility] on Monday01/19/24 for Endoleak of Ruptured aneurysm Endograft for medical optimization prior to planned Explant of Endograft with Open Aneurysm Repair on Monday01/24/24. documented in this [id number] History of Present illness Narrative* Rafaela Garcias [...] Guerra to admit patient to [facility] at [facility] on 01/19/24 and plan for Explant of Endograft and Open Aortic Aneurysm Repair on 01/24/24. Case request made. Attempted to reach patient to notify patient of admission and surgery. No answer. Left message on voicemail with request to return call. documented in this [id number] History of Present illness Narrative* Rafaela Garcias RN - 01/11/2024 4:39 PM EDT Received request from Dr. Guerra to admit patient to [facility] at [facility] on 01/19/24 and plan for Explant of Endograft and Open Aortic Aneurysm Repair on 01/24/24. Case request made. Attempted to reach patient to notify patient of admission and surgery. No answer. Left message on voicemail with request to return call. documented in this [id number] Evaluation + Plan note* Assessment & Plan [...] graft in the left renal artery dario [place] Excluder endograft. Duplex sonography demonstrated that the [...] who did her original operative procedure at [facility] and the 2 of us will come up with a therapeutic solution for this patient. I will admit her to my service and Dr. Guerra has agreed to help me with her surgery. [id number] Miscellaneous Notes* Assessment & Plan Note - [...] graft in the left renal artery dario [place] Excluder endograft. Duplex sonography demonstrated that the [...] who did her original operative procedure at [facility] and the 2 of us will come up with a therapeutic solution for this patient. I will admit her to my service and Dr. Guerra has agreed to help me with her surgery. documented in this [id number] NoteAssessment Ruptured abdominal aortic aneurysm (AAA) (HCC) I reviewed the CT angiogram with the patient and her significant other who was in the room. 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 The patient had a ruptured abdominal aortic aneurysm that was treated with a parallel graft in the left renal artery and a [place] Excluder endograft. Duplex sonography demonstrated that the [...] who did her original operative procedure at [facility] and the 2 of us will [...] Aneurysm Repair; Surgeon: Edenilson Guerra DO; Location: [facility] HYBRID OR; Service: Gen-Vascular Current Outpatient Medications [...] MG tablet Take (more content not included)... [facility]08-13-2024 History of Present illness Narrative* Sarath Rey [...] graft in the left renal artery dario [place] Excluder endograft. Duplex sonography demonstrated that the [...] who did her original operative procedure at [facility] and the 2 of us will [...] Aneurysm Repair; Surgeon: Edenilson Guerra DO; Location: [facility] HYBRID OR; Service: Gen-Vascular Current Outpatient Medications [...] significant pain. The note was dictated using [employer] dictation system. The voice recognition software is inherently subject to errors including those of syntax and sound- alike substitutions which may escape proofreading. In such instances, original meaning may be extrapolated by contextual derivation. documented in this [id number] Instructions* Patient Instructions* Sae Esparza MA - 01/09/2024 12:30 PM EDT How to contact your Care Team: Provider: MD Ana Fernandez CNP Jill Bender, PA Nurse: Ray Guido RN To reschedule office appointments call Scheduling [phone] In case of an emergency please call 911. When in need of refills please call the phone number listed above. Please include medication name, pharmacy name and specify 30 or 90 day supply Please check with your pharmacy within 24 hours of your request for refill. You must follow up as directed to continue current refills. Thank you! documented in this [id number] History of Present illness Narrative* Ray Guido RN - 01/05/2024 3:56 PM EDT Order received from Dr. Rey for CTA, urgently due to recent AAA US results of endo leak. Patient will require hydration and IV dye allergy protocol. Patient aware that she will be receiving a call with date and time of CTA for next week. documented in this [id number] History of Present illness Narrative* Michelle Littlejohn RPh,PharmD - 01/03/2024 8:03 AM EDT Images from the original note were not included. Anticoagulation Progress Note Date of Visit: January 03, 2024 Patient Name: Scott Obregon : 1960 Age: 63 y.o. Scott Obregon had her INR checked and result called in by her home health nurse, Makenzie, from [facility]. Anticoagulation Summary As of 01/03/2024 INR goal: [...] clinic with any changes. Michelle Littlejohn RPh,PharmD [facility] Dept: [phone] documented in this [id number] History of Present illness Narrative* Michelle Littlejohn [...] 27.5 mg Plan last modified: Michelle Littlejohn [facility],PharmD (12/21/2023) Next INR check: 01/03/2024 Priority: High [...] clinic with any changes. Michelle Littlejohn RPh,PharmD [facility] Dept: [phone] documented in this [id number] Evaluation + Plan note* Assessment & Plan [...] ultimately heal. 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 I also gave her a prescription for a handicap sticker to help with her fatigue. 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 [id number] Miscellaneous Notes* Assessment & Plan Note - [...] ultimately heal. 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 I also gave her a prescription for a handicap sticker to help with her fatigue. 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 documented in this [id number] NoteAssessment Ruptured abdominal aortic aneurysm (AAA) (HCC) The patient continues to recover from a heroic endovascular procedure to save her life. 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 I also gave her a prescription [...] aneurysm. The patient was life flighted from [place] to [facility] where Dr. Bart Guerra and Dr. Tylor [...] Aneurysm Repair; Surgeon: Edenilson Guerra DO; Location: [facility] HYBRID OR; Service: Gen-Vascular Current Outpatient Medications [...] by mouth See Admin Instructions 2.5mg on M//F 5mg on /// RE-CHECK ON 12/20/23 . [...] Mother Breast cancer Sister (more content not included)...[facility] 12-26-2023 History of Present illness Narrative* Sarath [...] ultimately heal. 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 I also gave her a prescription [...] aneurysm. The patient was life flighted from [place] to [facility] where Dr. Bart Guerra and Dr. Tylor [...] Aneurysm Repair; Surgeon: Edenilson Guerra DO; Location: [facility] HYBRID OR; Service: Gen-Vascular Current Outpatient Medications [...] 12 hours or as directed by . magnesium hydroxide (MOM) 400 mg/5 mL [...] significant pain. The note was dictated using [employer] dictation system. The voice recognition software is inherently subject to errors including those of syntax and sound- alike substitutions which may escape proofreading. In such instances, original meaning may be extrapolated by contextual derivation. documented in this [id number] Instructions* Patient Instructions* Sae Esparza MA - 12/26/2023 11:53 AM EDT How to contact your Care Team: Provider: MD Ana Fernandez CNP Jill Bender, PA Nurse: Ray Guido RN To reschedule office appointments call Scheduling [phone] In case of an emergency please call 911. When in need of refills please call the phone number listed above. Please include medication name, pharmacy name and specify 30 or 90 day supply Please check with your pharmacy within 24 hours of your request for refill. You must follow up as directed to continue current refills. Thank you! documented in this [id number] NoteBmp is stable no change in meds see how she's doing please AUTHENTICATED BY YING QUISPE, ON 12/22/2023 06:40:[address] [place] [address] 12-21-2023 History of Present illness Narrative* Michelle Littlejohn RPh,PharmD - 12/21/2023 12:40 PM EDT Anticoagulation Progress Note Date of Visit: December 21, 2023 Patient Name: Scott Obregon : 1960 Age: 63 y.o. Scott Obregon was called for an anticoagulation follow-up visit. INR obtained via venipuncture. Patient had a POC fingerstick INR done yesterday by her home health nurse, Adilene, from [facility]. Fingerstick INR result was 4.4, so it was recommended that patient have a venipuncture comparison. Nurse was unable to do blood draw yesterday, so patient went to [facility] this morning. [...] next Monday. Patient is due for a wdmi-uc-geph visit in clinic, but according to nurseAdilene, [...] clinic with any changes. Michelle Littlejohn RPh,PharmD [facility] Dept: [phone] documented in this [id number] History of Present illness Narrative* Michelle Littlejohn RPh,PharmD - 12/13/2023 1:13 PM EDT Images from the original note were not included. Anticoagulation Progress Note Date of Visit: December 13, 2023 Patient Name: Scott Obregon : 1960 Age: 63 y.o. Soctt Obregon Had her INR checked and result called in by her home health nurse, Makenzie, from [facility]. Anticoagulation Summary As of 12/13/2023 INR goal: 2.0-3.0 TTR: 81.6% (10.9 mo) INR used for dosin.1 (12/13/2023) Warfarin maintenance plan: 2.5 mg (5 mg x 0.5) every Mon, Wed, Fri; 5 mg (5 mg x 1) all other days Weekly warfarin total: 27.5 mg Plan last modified: Michelle Littlejohn RPh,PharmD (12/13/2023) Next INR check: 12/20/2023 Priority: High [...] clinic with any changes. Michelle Littlejohn RPh,PharmD [facility] Dept: [phone] documented in this [id number] History of Present illness Narrative* Justine Hodges RPh,PharmD - 12/06/2023 10:21 AM EDT Images from [...] patient's identity and that they were in [place] at the time of the visit. I [...] that there are some limitations compared to tsae-zr-feix evaluations. We elected to proceed. Anticoagulation Summary As of 12/06/2023 INR goal: 2.0-3.0 TTR: 83.4% (10.6 mo) INR used for dosin.4 (12/06/2023) Warfarin maintenance plan: 2.5 mg (5 mg x 0.5) every Fri; 5 mg (5 mg x 1) all other days Weekly warfarin total: 32.5 mg Plan last modified: Justine Hodges, [facility],PharmD (12/06/2023) Next INR check: 12/13/2023 Priority: High [...] clinic with any changes. Justine Hodges RPh,PharmD [facility] Dept: [phone] documented in this [id number] Telephone encounter Note* Telephone Encounter - Rachael Gipson RN - 12/06/2023 8:27 AM EDT error [id number] Miscellaneous Notes* Telephone Encounter - Rachael Gipson RN - 12/06/2023 8:27 AM EDT error documented in this [id number] History of Present illness Narrative* Adilene Bryan RPh,PharmD - 11/29/2023 12:02 PM EDT Images from the original note were not included. Anticoagulation Progress Note Date of Visit: November 29, 2023 Patient Name: Scott Obregon : 1960 Age: 63 y.o. Scott Obregon Spoke to Adilene SANTANA . INR obtained from an outside source: Home Health. Anticoagulation Summary As of 11/29/2023 INR goal: 2.0-3.0 TTR: 85.3% (10.4 mo) INR used for dosin.5 (11/29/2023) Warfarin maintenance plan: 5 mg (5 mg x 1) every day Weekly warfarin total: 35 mg Plan last modified: Adilene Bryan, [facility],PharmD (11/29/2023) Next INR check: 12/06/2023 Priority: High [...] why INR is above the range. Adilene MAINJOSE called with INR results. She is able [...] clinic with any changes. Adilene Bryan RPh,PharmD [facility] Dept: [phone] documented in this [id number] NoteGfr 45 hemoglobin 9 will improve with nutrition and hydration recheck on next visit no change in meds thanks. AUTHENTICATED BY YING QUISPE, ON 11/27/2023 07:17:41[facility] [id number] NoteHPI Here with Hi, discharge summary below reviewed. Here 11/23/2023. Doing physical therapy at home and sn drawing pt/inr every wk at home. For weakness twice wkly following bp at home. Bp today 100/60 sitting and 110/60 standing. OT involved too. Having ct angiogram abdomen 11/2023. 15th is angiogram and the 2nd is brachial index. Tsh/t4 appreciated. MEDONE DISCHARGE SUMMARY Scott Obregon Account: [id number] Admitted: 10/09/2023 Discharge Date/Time: 10/23/23 / 8:28 AM Handoff to PCP PCP to address the following Outpt Vasc Surg f/u Smoking cessation Clinical Summary Scott Obregon is a 63 y.o. female with a history of Factor 5 Leiden on warfarin, Chronic Back Pain, Smoker, PVD who presented to [facility] with multiple syncopal episodes, r sided abdominal pain on 10/09/[address] abdomen pelvis without contrast showed very large ruptured infrarenal aortic aneurysm. Pt transferred to [facility] 10/09/23 for advanced surgical evaluation. Aleyda was consulted 10/12/23 to assume care upon [...] quit. Severe Protein Calorie Malnutrition: Per Hx. Cutter Helper consulted. Code status: Full Discharge Medications Discharge [...] Physician(s) Family: Ying Quispe DO, , Address: [address] [place] [address] / [facility] [address] Follow Up: Physicians, [facility] [address] [place] [address] Follow up You are scheduled for your 1 month follow up appointment with Dr. Kruger on Monday11-16-23 at 8:[address] [address] Follow up You are scheduled for your Renal ultrasound on 11-16-2023 at 9:00 am in [place] Nothing to eat/drink after midnight the night before Edenilson Guerra DO [address] [place] [address] [address] [place] [address] Follow up in 1 month(s) Follow up in 1 month(s) [place] [address] [address] [place] [address] Ying Quispe, DO [address] Adela Vazquez (more content not included)...[facility]06-27-2024 History of Present illness Narrative* Ying Quispe, - 11/23/2023 1:47 PM EDT Images from [...] appreciated. MEDONE DISCHARGE SUMMARY Scott Obregon Account: [id number] Admitted: 10/09/2023 Discharge Date/Time: 10/23/23 / 8:28 AM Handoff to PCP PCP to address the following Outpt Vasc Surg f/u Smoking cessation Clinical Summary Scott Obregon is a 63 y.o. female with a history of Factor 5 Leiden on warfarin, Chronic Back Pain, Smoker, PVD who presented to [facility] with multiple syncopal episodes, r sided abdominal pain on 10/09/[address] abdomen pelvis without contrast showed very large ruptured infrarenal aortic aneurysm. Pt transferred to [facility] 10/09/23 for advanced surgical evaluation. Aleyda was consulted10/12/23 to assume care upon transfer [...] quit. Severe Protein Calorie Malnutrition: Per Hx. Cutter Helper consulted. Code status: Full Discharge Medications Discharge [...] , Address: [address] / [facility] [address] Follow Up: Physicians, [facility] [address] [place] [address] [address] [place] [id number] Follow up You are scheduled for your 1 month follow up appointment with Dr. Kruger on Monday11-16-23 at 8:[address] [address] Follow up You are scheduled for your Renal ultrasound on 11-16-2023 at 9:00 am in [place] Nothing to eat/drink after midnight the night before Edenilson Guerra DO [address] [place] [address] [facility] [address] Follow up in 1 month(s) Follow up in 1 month(s) [address] [address] Ying Quispe DO [address] [facility] [address] Follow up Vitals: 11/23/23 1311 11/23/23 1317 [...] Aneurysm Repair; Surgeon: Edenilson Guerra DO; Location: [facility] HYBRID OR; Service: Gen-Vascular Social History Socioeconomic [...] mouth daily . naloxone (NARCAN) 4 mg/actuation [place] Administer 1 (one) spray (4 mg total) [...] effects of the medications. documented in this [id number] NoteNew patient - podiatry wound clinic VISIT Abigail Estrella CNP Patient Name: Scott Obregon. . Date of : 1960, 63 y.o.. Gender: female. Author: Abigail Estrella CNP Subjective: Patient is a 63-year-old female coming to wound clinic being referred by Dr. Kruger vascular surgeon at [facility] to the wound clinic for left foot necrotic ulcers. Patient sustained and underwent repair for triple abdominal aneurysm in September. She presented to [place] ED and was life flighted to [facility]. She had difficulty following up with her surgical team due to distance and she was referred to be seen by vascular surgery team here for follow-up. Patient has pending appointment with Dr. Rey December 25. Surgery at [facility] was completed by Dr. Guerra and Dr. [...] follow-up CTA to be completed here in [place]) Continue working on tobacco cessation. Patient states she has quit smoking but cigarettes were visible in her purse I will follow-up with the patient once PAL results are available. Patient has office phone number and address available, call immediately if there are any acute changes to the left foot AUTHENTICATED BY ABIGAIL ESTRELLA, ON 11/23/2023 07:01:[address] [place] [address] 11-22-2023 History of Present illness Narrative* Abigail [...] referred by Dr. Kruger vascular surgeon at [facility] to the wound clinic for left foot necrotic ulcers. Patient sustained and underwent repair for triple abdominal aneurysm in September. She presented to [place] ED and was life flighted to [facility]. She had difficulty following up with her surgical team due to distance and she was referred to be seen by vascular surgery team here for follow-up. Patient has pending appointment with Dr. Rey December 25. Surgery at [facility] was completed by Dr. Guerra and Dr. [...] order follow-up CTA to be completed here [facility]) Continue working on tobacco cessation. Patient states she has quit smoking but cigarettes were visible in her purse I will follow-up with the patient once PAL results are available. Patient has office phone number and address available, call immediately if there are any acute changes to the left foot documented in this [id number] Instructions* Patient Instructions* Makenzie Abrams RN - 11/22/2023 2:34 PM EDT [place] left great toe and fifth toe ulcers with Betadine, secure with Kerlix. At home continue painting toes if they become wet. Protect from injury, keep foot warm documented in this [id number] History of Present illness Narrative* Michelle Littlejohn RP,PharmD - 11/21/2023 1:33 PM EDT Anticoagulation Progress [...] 37.5 mg Plan last modified: Adilene Bryan, [facility],PharmD (11/14/2023) Next INR check: 11/29/2023 Priority: High [...] clinic with any changes. Michelle Littlejohn RPh,PharmD [facility] Dept: [phone] documented in this [id number] Telephone encounter Note* Telephone Encounter - La [...] is it scheduled): 11/23/23 Please send to [facility] - [place], [place] - [address] [place] [address] [facility] [place] [address] Follow up: Refill pending for review without additional follow up based on information above. [id number] Miscellaneous Notes* Telephone Encounter - La Nena [...] is it scheduled): 11/23/23 Please send to [facility] - [place], [place] - [address] [place] [address] [facility] [address] Follow up: Refill pending for review without additional follow up based on information above. documented in this [id number] Evaluation + Plan note* Assessment & Plan [...] for her to be seen in the [place] wound [place], and I have also placed a referral for her to see Dr. Sarath Rey in [place] as it is difficult for them to get to [place] for routine follow-up. We will arrange for [...] recommend her systolic be less than 130. [facility] [id number] Miscellaneous Notes* Assessment & Plan Note - [...] for her to be seen in the [place] wound [place], and I have also placed a referral for her to see Dr. Sarath Rey in [place] as it is difficult for them to get to [place] for routine follow-up. We will arrange for [...] be less than 130. documented in this [id number] [facility] Physicians [address], [address] [place] [address] Scott Obregon is a 63 y.o.female who [...] for her to be seen in the [place] wound center, and I have also placed a referral for her to see Dr. Sarath Rey in [place] as it is difficult for them to get to [place] for routine follow-up. We will arrange for [...] Aneurysm Repair; Surgeon: Edenilson Guerra DO; Location: [facility] HYBRID OR; Service: Gen-Vascular Family History Problem [...] mouth every 6 (si (more content not included)...[facility]06-21-2024 History of Present illness Narrative* Tylor Kruger MD - 11/17/2023 8:17 AM EDT Images from the original note were not included. [facility] Physicians [address] [place] [address], [address] [place] [address] Scott Obregon is a 63 y.o.female who [...] for her to be seen in the [place] wound center, and I have also placed a referral for her to see Dr. Sarath Rey in [place] as it is difficult for them to get to [place] for routine follow-up. We will arrange for [...] Aneurysm Repair; Surgeon: Edenilson Guerra DO; Location: [facility] HYBRID OR; Service: Gen-Vascular Family History Problem [...] mouth daily . naloxone (NARCAN) 4 mg/actuation [place] Administer 1 (one) spray (4 mg total) [...] Patient Position: Sitting Sitting BP Cuff Size: [facility] Pulse: 63 65 Weight: 56.7 kg (125 [...] result was not included. ED PROVIDER NOTE [facility] NAME: Scott Obregon AGE: 63 y.o. : 1960 VISIT DATE: 10/09/2023 CSN: [id number] PCP: Ying Quispe DO Chief Complaint Patient [...] ms QTC Calculation (Bezet) 449 ms P [place] 55 degrees R [place] 55 degrees T [place] 99 degrees Type and Screen Result Value Ref Range ABORh O Positive Antibody Screen Negative Specimen Expires 10/12/2023 23:59 EST Prepare RBC: 2 Units Result Value Ref Range Product ID Red Blood Cells Blood Type Code 5100 Product Code [id number] Status Info Ready for issue Unit Number [id number] Blood Type O Pos Cross Match Compatible Product ID Red Blood Cells Blood Type Code 5100 Product Code [id number] Status Info Ready for issue Unit Number [id number] Blood Type O Pos Cross Match Compatible [...] Respectfully, Tylor Kruger MD documented in this [id number] Instructions* Patient Instructions* Rachael Gipson RN - 11/17/2023 8:12 AM EDT We will see you back in the office: to follow up with Dr. Rey in [place] and wound care Labs: creatinine lab draw prior to CT scan Medication Changes: The following testing has been ordered for you: CT angiogram of abdomen/pelvis with lower extremityrunoff Scheduling should reach out to you to schedule testing But if you do not hear from them please call the number below To schedule testing please reach out to [phone] and follow the prompts to scheduling If you need to schedule, cancel or reschedule an appointment please call [place] office [phone] If you have any questions please call JACKIE Cano [phone] documented in this [id number] History of Present illness Narrative* Adilene Bryan, [facility],PharmD - 11/14/2023 9:59 AM EDT Images from the original note were not included. Anticoagulation Progress Note Date of Visit: November 14, 2023 Patient Name: Scott Obregon : 1960 Age: 63 y.o. Scott Winters M[place] with [facility] called with INR results. INR obtained from an outside source: Home Health. Anticoagulation Summary As of 11/14/2023 INR goal: 2.0-3.0 TTR: 87.0% (9.9 mo) INR used for dosin.5 (11/14/2023) Warfarin maintenance plan: 7.5 mg (5 mg x 1.5) every Tue, Elena, Sat; 5 mg (5 mg x 1) all other days Weekly warfarin total: 42.5 mg Plan last modified: Adilene Bryan, [facility],PharmD (02/15/2023) Next INR check: 11/21/2023 Priority: High [...] clinic with any changes. Adilene Bryan RPh,PharmD [facility] Dept: [phone] documented in this [id number] Patient's home Progress note* Actions CP assess, [...] level / walkout documented in this encounter [id number] History of Present illness Narrative* Michelle Littlejohn RPh,PharmD - 11/08/2023 4:07 PM EDT Anticoagulation Progress Note Date of Visit: November 08, 2023 Patient Name: Scott Obregon : 1960 Age: 63 y.o. Scott Obregon Had her INR checked and result called in by her home health nurse, Camila, from [facility]. Anticoagulation Summary As of 11/08/2023 INR goal: [...] dose of 42.5 mg/week since discharging from [facility]. INR is therapeutic today at 2.3. Since INR is in range, will continue same dose. Will recheck next week again to ensure stability. PLAN: Will continue weekly warfarin dose of 42.5 mg/week. Will check next INR in 1 week unless there are any changes before then. Encouraged patient to contact clinic with any changes. Michelle Littlejohn RPh,PharmD [facility] Dept: [phone] documented in this [id number] Patient's home Progress note* Actions [facility] Clinical [facility] farrukh Patient's goals for HomeCare: to gain [...] dry them thoroughly. documented in this encounter [id number] Patient's home Progress note* Actions [facility] Clinical Sum farrukh Patient's goals for HomeCare: to gain [...] dry them thoroughly. documented in this encounter [id number] History of Present illness Narrative* Rafaela Garcias RN - 11/03/2023 11:02 AM EDT Reviewed with Dr. Guerra post op follow up appt with Cate Contreras FRONT OFFICE SUPERVISOR s/p EVAR and Right Renal Stenting 10/10/[address] Guerra and Dr. Kruger. Per review, patient is scheduled for follow up with on 11/16 with renal ultrasound. Per Dr. Guerra, patient to continue follow up with Dr. Kruger and does not need to continue followup with us. Patient aware of follow up with Dr. Kruger documented in this [id number] NoteOffice Visit Patient Name: Scott Obregon MR #: [id number] Assessment/Plan: I saw Scott in the office today for the one week Vascular surgery follow-up. she is a 63 y.o. female with history of Hyperlipidemia, hypertension, factor 5 Leiden on coumadin, hypothyroidism, appendicitis s/p laparoscopic appendectomy (09/14/2018) who presented to [facility] on 10/09/2023 with a ruptured infrarenal abdominal aortic aneurysm, acute blood loss anemia, hemorrhagic shock and underwent emergent EVAR and snorkel stent to left renal artery, right brachial artery cutdown on 10/10/[address] Guerra and Dr. Kruger. She is currently at [facility] for a prolonged recovery. 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 she is a 63 y.o. female with history of Hyperlipidemia, hypertension, factor 5 Leiden on coumadin, hypothyroidism, appendicitis s/p laparoscopic appendectomy (09/14/2018) who presented to [facility] on 10/09/2023 with a ruptured infrarenal abdominal aortic aneurysm, acute blood loss anemia, hemorrhagic shock and underwent emergent EVAR and snorkel stent to left renal artery, right brachial artery cutdown on 10/10/[address] Guerra and Dr. Kruger. She is currently at [facility] for a prolonged recovery. 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05[facility]24[facility] [facility]05-23[facility] Note [facility]05-22-[address] [facility] 10-18-2023 [facility] [facility]05-21-20[facility] [facility]05-20-20[facility] Note [facility]05-19-[address] [facility] 10-14-[address] [facility]05-18-[address] [facility]05-17-[address] [facility]05-17-[address] [facility]05-17-[address] [facility]05-16-2024 Note [facility]05-15-2024 History of Present illness Narrative* Yakelin Iqbal MA - 10/11/2023 9:57 AM EDT Patient is s/p emergent EVAR with renal stenting with Dr. Guerra/Dr Kruger. Per Cheyenne Carey DNP,patient needs a 1 month follow up appointment with Dr Kruger only along with a renal duplex. She is scheduled for renal duplex on 11-16-2023 at 9:00 am in [place] then she will see Dr Kruger on Monday11-17-2023 at 8:00am in the [facility] office location. Patient aware/AVS updated documented in this [id number] [facility]05-15-2024 [facility]04-30-2024 NoteSubjective Patient ID: Scott Obregon is [...] increase boost to BID Felicity Olson CNP [place] [phone] AUTHENTICATED BY FELICITY OLSON, ON 09/26/2023 09:39:34[facility] 09-26-2023 History of Present illness Narrative* [...] increase boost to BID Felicity Olson CNP [facility] [phone] documented in this [id number] History of Present illness Narrative* Alcides Leary [...] mg (5 mg x 1.5) every Tue, [place], Sat; 5 mg (5 mg x 1) all other days Weekly warfarin total: 42.5 mg Plan last modified: Adilene Bryan, [facility],PharmD (02/15/2023) Next INR check: 10/12/2023 Priority: Maintenance [...] patient to contact clinic with any changes. [facility] Dept: [phone] Associated attestation - Micehlle Littlejohn RPh,PharmD - 09/07/2023 8:20 AM EDT I, Michelle Littlejohn RPh,PharmD, attest that I was present during the patient encounter. I agree withthe documentation, assessment, and plan outlined in the below documentation. documented in this [id number] History of Present illness Narrative* Theresa Boykin [...] symptoms - Advised patient to follow-up with PCP/aerospace quality engineer re: PAL results - Nursing notes reviewed [...] studies if clinically indicated. documented in this [id number] History of Present illness Narrative* Michelle Littlejohn, [place],PharmD - 08/10/2023 8:30 AM EDT Anticoagulation Progress [...] 42.5 mg Plan last modified: Adilene Bryan RP,PharmD (02/15/2023) Next INR check: 09/07/2023 Priority: Maintenance [...] clinic with any changes. Michelle Littlejohn RPh,PharmD [facility] Dept: [phone] documented in this [id number] History of Present illness Narrative* Yfn Puckett [...] well and still working. documented in this [id number] History of Present illness Narrative* Justine Hodges, [...] 42.5 mg Plan last modified: Adilene Bryan, ANDREA,PharmD (02/15/2023) Next INR check: 08/10/2023 Priority: Maintenance [...] clinic with any changes. 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 documented in this [id number] History of Present illness Narrative* Arlette Fernandes [...] 42.5 mg Plan last modified: Adilene Bryan [facility],PharmD (02/15/2023) Next INR check: 07/13/2023 Priority: Maintenance [...] 62 y.o. female was seen at the [facility]. She is doing well and is able to correctly confirm the dose of warfarin, and denies any changes or concerns. Warfarin taken in the previous 7 days: 42.5 mg INR is therapeutic today at 2.1. Patient missed 3 doses around [place] due to running out of medication and [...] patient to contact clinic with any changes. [facility] Dept: [phone] Associated attestation - Adilene Bryan RPh, PharmD - 06/07/2023 8:30 AM EST IAdilene, attest that I was present during the patient encounter. I agree with the documentation, assessment, and plan outlined in the below documentation. documented in this [id number] History of Present illness Narrative* Adilene Bryan RPh,PharmD - 05/03/2023 8:12 AM EST Anticoagulation Progress [...] 62 y.o. female was seen at the [facility]. She is able to correctly [...] clinic with any changes. Adilene Bryan RPh,PharmD [facility] Dept: [phone] documented in this [id number] Instructions* Patient Instructions* Adilene Bryan RPh,PharmD - 05/03/2023 8:10 AM EST If you experience any of the following symptoms within 24 hours of your next appointment, or you have been in close contact with anyone confirmed or suspected to have coronavirus/COVID-19 in the past10 days please call us to reschedule at Dept: [phone]. Fever Cough Shortness of breath Difficulty breathing Chills Repeated shaking with chills Muscle pain Headache Sore throat Any loss of taste or smell Nausea, vomiting or diarrhea If you are screened positive for any of the above upon entering the building, please call us at Dept: [phone] for further instructions before you proceed to the clinic. Thank you for adhering to our precautions to keep our patients and providers safe! documented in this [id number] History of Present illness Narrative* Ying Quispe, [...] effects of the medications. documented in this [id number] History of Present illness Narrative* Michelle Littlejohn RPh,PharmKirk - 04/05/2023 8:19 AM EST I, Michelle Littlejohn, attest that I agree with the documentation, assessment, and plan [facility]. * Justine Hodges RPhPharmKirk - 04/05/2023 [...] 42.5 mg Plan last modified: Adilene Bryan [facility],PharmD (02/15/2023) Next INR check: 05/03/2023 Priority: Maintenance [...] clinic with any changes. Justine Hodges RPh,PharmD [facility] Dept: [phone] documented in this [id number] History of Present illness Narrative* Michelle Littlejohn RPh,Alfredo - 03/08/2023 8:04 AM EDT Anticoagulation Progress [...] mg (5 mg x 1.5) every e, Elean, Sat; 5 mg (5 mg x 1) [...] clinic with any changes. Michelle Littlejohn RPh,PharmD [facility] Dept: [phone] documented in this [id number] History of Present illness Narrative* Adilene Bryan [...] 42.5 mg Plan last modified: Adilene Bryan, [facility],PharmD (02/15/2023) Next INR check: 03/08/2023 Priority: Maintenance [...] 62 y.o. female was seen at the [facility]. She is able to correctly confirm the dose of warfarin, and denies any changes or concerns. She has been taking the 7.5mg on Monday, and Monday. This is the same weekly dose, just [...] clinic with any changes. Adilene Bryan RPh,PharmD [facility] Dept: [phone] documented in this [id number] Instructions* Patient Instructions* Adilene Bryan RPh,Alfredo - 02/15/2023 7:59 AM EDT If you experience any of the following symptoms within 24 hours of your next appointment, or you have been in close contact with anyone confirmed or suspected to have coronavirus/COVID-19 in the past10 days please call us to reschedule at Dept: [phone]. Fever Cough Shortness of breath Difficulty breathing Chills Repeated shaking with chills Muscle pain Headache Sore throat Any loss of taste or smell Nausea, vomiting or diarrhea If you are screened positive for any of the above upon entering the building, please call us at Dept: [phone] for further instructions before you proceed to the clinic. Thank you for adhering to our precautions to keep our patients and providers safe! documented in this [id number] History of Present illness Narrative* Michelle Littlejohn [...] 7.5 mg (5 mg x 1.5) every Sun, e, Elena; 5 mg (5 mg x 1) all other days Weekly warfarin total: 42.5 mg Plan last modified: Lavon Mcmullen [facility],PharmD (01/16/2023) Next INR check: 02/15/2023 Priority: High [...] clinic with any changes. Michelle Littlejohn RPh,PharmD [facility] Dept: [phone] documented in this [id number] History of Present illness Narrative* Ying Quispe, DO - 01/25/2023 4:07 PM EDT Images [...] effects of the medications. documented in this [id number] History of Present illness Narrative* Jen Barbara - 01/16/2023 8:30 AM EDT Anticoagulation Progress [...] 42.5 mg Plan last modified: Lavon Mcmullen [facility],PharmD (01/16/2023) Next INR check: 01/23/2023 Priority: High [...] patient to contact clinic with any changes. Barbara Jen [facility] Dept: [phone] Associated attestation - Lavon Mcmullen RPh,Alfredo - 01/16/2023 8:34 AM EDT ILavon, attest that I was present during the patient encounter. I agree with the documentation, assessment, and plan outlined in the below documentation. documented in this [id number] History of Present illness Narrative* Adilene Bryan RPh, PharmD - 01/09/2023 8:13 AM EDT I attest that I was present during the patient encounter and I agree with the assessment and plan outlined below. * Barbara Li - 01/09/2023 8:05 AM EDT Images from [...] patient to contact clinic with any changes. [facility] Dept: [phone] documented in this [id number] Instructions* Patient Instructions* Adilene Bryan RPh,PharmD - 01/09/2023 8:01 AM EDT If you experience any of the following symptoms within 24 hours of your next appointment, or you have been in close contact with anyone confirmed or suspected to have coronavirus/COVID-19 in the past10 days please call us to reschedule at Dept: [phone]. Fever Cough Shortness of breath Difficulty breathing Chills Repeated shaking with chills Muscle pain Headache Sore throat Any loss of taste or smell Nausea, vomiting or diarrhea If you are screened positive for any of the above upon entering the building, please call us at Dept: [phone] for further instructions before you proceed to the clinic. Thank you for adhering to our precautions to keep our patients and providers safe! documented in this [id number] History of Present illness Narrative* Michelle Littlejohn RPh,PharmD - 01/02/2023 7:37 AM EDT Images from [...] clinic with any changes. Michelle Littlejohn RPh,PharmD [facility] Dept: [phone] documented in this [id number] History of Present illness Narrative* Adilene Bryan [...] 35 mg Plan last modified: Michelle Littlejohn, [facility],PharmD (12/19/2022) Next INR check: 01/02/2023 Priority: High [...] 62 y.o. female was seen at the [facility]. She confirmed the dose of [...] contact clinic with any changes. Adilene Bryan RPh,Alfredo [facility] Dept: [phone] documented in this [id number] Instructions* Patient Instructions* Adilene Bryan RPh, PharmD - 12/26/2022 8:11 AM EDT If you experience any of the following symptoms within 24 hours of your next appointment, or you have been in close contact with anyone confirmed or suspected to have coronavirus/COVID-19 in the past10 days please call us to reschedule at Dept: [phone]. Fever Cough Shortness of breath Difficulty breathing Chills Repeated shaking with chills Muscle pain Headache Sore throat Any loss of taste or smell Nausea, vomiting or diarrhea If you are screened positive for any of the above upon entering the building, please call us at Dept: [phone] for further instructions before you proceed to the clinic. Thank you for adhering to our precautions to keep our patients and providers safe! documented in this [id number] History of Present illness Narrative* Michelle Littlejohn RPh, PharmD - 12/19/2022 8:13 AM EDT Images from [...] Michelle Littlejohn RPh,PharmD (12/19/2022) Next INR check: 12/26/2022 Priority: [...] ASSESSMENT: Scott Obregon is new to our [facility] anticoagulation clinic. Indication for warfarin therapyis DVT. [...] clinic with any changes. Michelle Littlejohn RPh,PharmD [facility] Dept: [phone] documented in this [id number] History of Present illness Narrative* Lita Gu [...] MD [employer] PNSHETH documented in this [id number] History of Present illness Narrative* Brittaney Ying Sweeney, DO - 11/28/2022 4:44 PM EDT Images from [...] runny nose. The 10-year ASCVD risk score (Wilmington DK, et al., 2019) is: 11.5% Values [...] at all Somewhat difficult documented in this [id number] History of Present illness Narrative* Lita Gu [...] MD [employer] documented in this [id number] History of Present illness Narrative* Lita Gu [...] to participate in the care of Scott Dorand. LITA GU MD [employer] documented in this [id number] History of Present illness Narrative* Amalia Fernandez [...] routed to ordering provider. documented in this [id number] Note* Addendum Note - Ying Quispe DO - 08/15/2022 5:28 PM EDTAddended by: YING QUISPE on: 08/15/2022 05:28 PM Modules accepted: Orders [id number] Miscellaneous Notes* Addendum Note - Ying Quispe DO - 08/15/2022 5:28 PM EDTAddended by: YING QUISEP on: 08/15/2022 05:28 PM Modules accepted: Orders documented in this [id number] History of Present illness Narrative* Ying Quispe DO - 08/15/2022 5:07 PM EDT Images from [...] Readings from Last 4 Encounters: 08/15/22 138/80 07/06/22 133/83 06/13/22 132/70 06/11/22 125/74 Past Medical [...] effects of the medications. documented in this [id number] History of Present illness Narrative* Lita Gu [...] left shoulder. Energy levels fair. Works at [employer]. No pregnancies. No miscarriages in mother, h/o [...] LAPAROSCOPIC; Surgeon: Татьяна Jenkins MD; [place]; Service: General Surgery FH Family History Problem [...] MD [employer] PNSHETH documented in this [id number] Instructions* Patient Instructions* Ying Quispe DO - 06/13/2022 4:31 PM EST Do eliquis 5mg twice daily for 3 months when done with 10mg twice daily for 7 days documented in this [id number] History of Present illness Narrative* Ying Quispe DO - 06/13/2022 4:10 PM EST Images from the original note were not included. HPI Here for follow up from Monday, dx with left axillary vein thrombosis supposed to set up with dr. Meyerematology to check for hereditary causes of dvt. [...] Last 4 Encounters: 06/13/22 132/70 06/11/22 125/74 01/09/23 130/80 04/06/22 121/76 Past Medical History: Diagnosis [...] left upper extremity (HCC) compression sleeve at [facility]. - Ambulatory referral to Hematology / Oncology; [...] - - Somewhat difficult documented in this [id number] Hospital course Narrative* Dewansh Lanre, MD - 06/11/2022 9:31 AM EST Images from the original note were not included. [facility] DISCHARGE SUMMARY -- [facility] Scott Obregon Admitted: 06/10/2022 Discharge Date: 06/11/22 [...] Ying Quispe DO [address] [place] [phone] Follow up Ying Quispe DO [address] [place] [phone] Lita Gu MD [address] [phone] Follow up Condition at Discharge: Stable Disposition: Home On day of discharge, I performed a final bedside evaluation including a physical exam. I reviewed discharge recommendations with the patient in person. Patient instructions, including activity, were given to the patient/family at discharge. Time spent on discharge: > 30 minutes Completed by: Kat De Dios on 06/11/22, 9:31 AM documented in this [id number] Hospital Discharge instructions * Discharge Instr - [...] include work-up for DVT documented in this [id number] Note* Plan of Care - Stacy Cano [...] discharge plan and instructions Outcome: Partially Met [id number] Miscellaneous Notes* Plan of Care - Stacy [...] the patient. I discussed the patient with REFRIGERATING TECHNICIAN/PA. I agree with the REFRIGERATING TECHNICIAN/PA treatment plan. I agree with the REFRIGERATING TECHNICIAN/PA plan of care. I agree with the REFRIGERATING TECHNICIAN/PA dispo as documented. Patient is a 61-year-old [...] -- 5' 11 77.1 kg (170 lb) Medications Administered (if [...] All other components within normal limits Narrative: [facility] has implemented the eGFR calculation [...] Procedure Abnormality Status --------- ------ CBC Auto Differential[[id number]] Abnormal Final result Please view results for these tests on the individual orders. Imaging Results XR Chest 1 View (Results Pending) Ultrasound Duplex Venous Arm LEFT (Results Pending) CT Head Or Brain Without Contrast (Results Pending) Procedures . documented in this [id number] Note* Plan of Care - Svetlana Monaco [...] discharge plan and instructions Outcome: Partially Met [id number] History of Present illness Narrative* Mendez Tang - 06/10/2022 1:26 PM EST Vascular Surgery Inpatient Consult 06/10/2022 [facility] Patient: Scott Obregon Date of : 1960 (61 y.o.) Referring Provider: Refer to consult order in electronic medical record PCP: Ying Quispe DO ASSESSMENT/PLAN: Scott Obregon 61 y.o. female with [...] cephalic and basilic veins. documented in this [id number] History and physical note* Adia Rodriguez MD - 06/10/2022 1:25 PM EST [facility] HISTORY AND PHYSICAL -- [facility] Patient Name: Scott Obregon : 1960 MR #: [id number] Admit Date: 06/10/2022 Physicians: Ying Quispe DO [...] 06/10/22 1:33 PM Medications 06/10/22 1:33 PM [facility] Work Phone: 1(677) 711-808301-13-2023 History and physical note* Adia Rodriguez MD - 06/10/2022 1:25 PM EST [facility] HISTORY AND PHYSICAL -- [facility] Patient Name: Scott Obregon : 1960 MR #: [id number] Admit Date: 06/10/2022 Physicians: Ying Quispe DO [...] Medications 06/10/22 1:33 PM documented in this [id number] Emergency department Note* Mendez Ariza RN - 06/10/2022 12:30 PM EST Report called to floor nurse. [id number] Emergency department Note* Mendez Ariza RN - 06/10/2022 12:30 PM EST Report called to floor nurse. * Mendez Ariza RN - 06/10/2022 11:21 AM EST [facility]. thisnurse told to hold IV and heparin at this time. Pt may be going home and will be started on oral meds. No other needs. SRx2. Call light in reach. * Bambi Whyte PA-C - 06/10/2022 9:08 AM EST [facility] XIAO NOTE: NAME: Scott Obregon CSN: [id number] 61 y.o. PCP: Ying Quispe DO History: [...] LAPAROSCOPIC; Surgeon: Татьяна Jenkins MD; Location[place]; Service: General Surgery FAM. Hx: Family History [...] -- -- -- 77.1 kg (170 lb) Physical Exam Vitals [...] All other components within normal limits Narrative: [facility] has implemented the eGFR calculation [...] Procedure Abnormality Status --------- ------ CBC Auto Differential[[id number]] Abnormal Final result Please view results for [...] admitted the patient we will consult vascular construction consultant. This provider spoke with Dr. Pierce vascular surgeon, he will consult with hospitalist as needed. Clinical Impression: 1. Acute deep vein thrombosis (DVT) of axillary vein of left upper extremity (HCC) 2. Chest pain, unspecified type Disposition: ED Disposition ED Disposition Hospitalize Condition -- Comment Phone call required?: No Bambi Whyte PA-C ED Advanced Practice Provider [facility] (Please note that portions of [...] Comments: NEXT PT 1 documented in this [id number] Note* Plan of Care - Adia Rodriguez [...] heparin drip. Full consult note will follow. [facility] Emergency department Note* Mendez Ariza RN - 06/10/2022 11:21 AM EST [facility]. thisnurse told to hold IV and heparin at this time. Pt may be going home and will be started on oral meds. No other needs. SRx2. Call light in reach. [facility] HospitalIoutXbabbm94-29-5220 Note* ED Attestation Note - Shira Lopez MD - 06/10/2022 10:15 AM EST I personally interviewed the patient. I personally examined the patient. I discussed the patient with REFRIGERATING TECHNICIAN/PA. I agree with the REFRIGERATING TECHNICIAN/PA treatment plan. I agree with the REFRIGERATING TECHNICIAN/PA plan of care. I agree with the REFRIGERATING TECHNICIAN/PA dispo as documented. Patient is a 61-year-old [...] All other components within normal limits Narrative: [facility] has implemented the eGFR calculation [...] Procedure Abnormality Status --------- ------ CBC Auto Differential[[id number]] Abnormal Final result Please view results for these tests on the individual orders. Imaging Results XR Chest 1 View (Results Pending) Ultrasound Duplex Venous Arm LEFT (Results Pending) CT Head Or Brain Without Contrast (Results Pending) Procedures . [id number] Physician Emergency department Note* Bambi Whyte PA-C - 06/10/2022 9:08 AM EST [facility] XIAO NOTE: NAME: Scott Obregon CSN: [id number] 61 y.o. PCP: Ying Quispe DO History: [...] LAPAROSCOPIC; Surgeon: Татьяна Jenkins MD; [place]; Service: General Surgery FAM. Hx: Family History [...] All other components within normal limits Narrative: [facility] has implemented the eGFR calculation [...] Procedure Abnormality Status --------- ------ CBC Auto Differential[[id number]] Abnormal Final result Please view results for [...] admitted the patient we will consult vascular construction consultant. This provider spoke with Dr. Pierce vascular surgeon, he will consult with hospitalist as needed. Clinical Impression: 1. Acute deep vein thrombosis (DVT) of axillary vein of left upper extremity (HCC) 2. Chest pain, unspecified type Disposition: ED Disposition ED Disposition Hospitalize Condition -- Comment Phone call required?: No Bambi Whyte PA-C ED Advanced Practice Provider [facility] (Please note that portions of this note have been completed with a voice recognition software. Efforts were made to correct any errors, but occasionally words are mis-transcribed.) Bambi Whyte PA-C 06/10/22 1145 Bambi Whyte PA-C 06/10/22 1201 [address]SevwCndioi94-60-0621 Emergency department Triage note* Mendez Ariza RN [...] fingers. Pt in no distress. GCS 15. [address]HadjDhemgt30-88-5226 Emergency department Note* Leanne Taylor - 06/10/2022 8:48 AM EST Bed: 15 Expected date: Expected time: Means of arrival: Comments: NEXT PT [address] [place] [address]KyogIsvjij25-95-8826 History of Present illness Narrative* Ying Quispe DO - 06/06/2022 11:48 AM EST Images from the original note were not included. HPI 2 weeks of hand/feet white/bluish worse with weather changes. 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 on thyroid medicine. Denies [...] LAPAROSCOPIC; Surgeon: Татьяна Jenkins MD; Location[place]; Service: General Surgery Social History Socioeconomic History [...] start today if not better in a [facility] return if ok will see in spring/summer [...] - - Somewhat difficult documented in this [id number] History of Present illness Narrative* Ying Quispe [...] effects of the medications. documented in this [id number] History of Present illness Narrative* Felicity Olson CNP - 01/05/2022 4:27 PM EDT Images from [...] days . Electronically signed by Felicity Olson Karen Depression Screening 01/01/2018 01/14/2019 09/29/2020 05/12/2021 01/05/2022 [...] at all - - documented in this [id number] History of Present illness Narrative* Yfn Puckett Jr., DPM - 11/25/2021 4:43 PM EDT Tingling and burning bilaterally. Follow-up right heel wart, cantharidin. Patient is a pleasant 61-year-old female following [...] medical complexity decision making. documented in this [id number] History of Present illness Narrative* Ying Quispe, DO - 11/18/2021 8:23 AM EDT [...] Lipid- Due not fasting documented in this [id number] Telephone encounter Note* Telephone Encounter - Arlette Benavidez RN - 11/05/2021 2:39 PM EDT ----- Message from Mary Shaver sent at 11/05/2021 2:00 PM EDT ----- Regarding: Refill MEDICATION REFILL REQUEST: PCP: iYng Quispe DO Patient called 11/05/21 and is [...] this refill. Please send to Preferred pharmacies: [facility] [place], [place] - [address] [address] Pt Call Back Number Patient call back message sent to the primary care clinical pool. Mary Shaver [id number] Miscellaneous Notes* Telephone Encounter - Arlette Benavidez [...] this refill. Please send to Preferred pharmacies: [facility] - [place], [place] - [address] [facility] [address] Pt Call Back Number Patient call back message sent to the primary care clinical pool. Mary Shaver documented in this [id number] History of Present illness Narrative* Ying Quispe, - 06/21/2021 3:12 PM EST Images from [...] effects of the medications. documented in this [id number] History of Present illness Narrative* Yfn Puckett [...] medical complexity decision making. documented in this [id number] History of Present illness Narrative* Ying Quispe, - 05/12/2021 10:04 AM EST Images from the original note were not included. HPI \ Here to establish, sriram alvares's daughter. Chart reviewed, labs every year in the future. Getting back into [employer] for hips. Doesn't do paps/mamogram/dexascans. Doesn't do shots. The 10-year ASCVD risk score (Shelly SANFORD Jr., et al., 2013) is: 4.7% [...] LAPAROSCOPIC; Surgeon: Татьяна Jenkins MD; [place]; Service: General Surgery Social History Socioeconomic History [...] this visit. PHQ-9 Depression Screening - 05/12/21 0918 Over the last 2 weeks, how often [...] difficult at all - documented in this [id number] History of Present illness Narrative* Bambi Huynh MD - 09/29/2020 1:58 PM EDT [facility] [place] [address] Ganes[address] [id number] Scott Obregon 1960 [id number] HPI: 60-year-old female with history of hypothyroidism, [...] Gets together: Three times a week Attends rastafarian service: Not on file Active member of [...] Not difficult at all documented in this [id number] Telephone encounter Note* Telephone Encounter - Bambi Huynh MD - 07/29/2020 6:59 AM EST Patient overdue for appointment [id number] Miscellaneous Notes* Telephone Encounter - Bambi Huynh MD - 07/29/2020 6:59 AM EST Patient overdue for appointment documented in this encounterOhioHealthDischarge summary Author Constantin Jain [facility] Note Date/Time September 15, 2024 7:5 [address] [facility] [address] [place] [address] Emergency Department Summary 09/15/24 MR#: [id number] Acct: [id number] Name: SCOTT OBREGON Rep #:[id number] : [...] of pulmonary edema that staff at the [facility] states has improved with Lasix inthe past, she has been dyspneic for the last 12 to 24 hours, and the patient complains of chest pressure as well. She has been coughing no sputum production, she is orthopneic and denies any fevers or chills. No GI symptoms or recent vomiting. She is on chronic oxygen therapy at the [facility], unknown how much at baseline but at the [facility] they have had her nasal cannula up to 5 L this past day. 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) Open abdominal wall wound Factor 5 Leiden mutation, heterozygous Failure to thrive long-term (current) use of anticoagulants Gross hematuria Retroperitoneal [...] bisacodyl 10 mg rectal suppository 10 mg AK DAILY PRN constipation 07/31/24 Unknown History cholecalciferol [...] tablet acetaminophen 650 mg rectal 650 mg AK Q4H PRN fever or pain 08/14/24 Unknown History suppository dextrose 40 % oral gel (Glucose 10 g PO Q15M PRN hypog lycemia 08/14/24 Unknown History Gel) mirtazapine 15 mg tablet 15 mg PO QHS 08/14/24 Unknow n History sodium phosphates 19 gram-7 118 ml AK DAILY PRN consti pation 08/14/24 Unknown History [...] treatment, she had 1 earlier at the [facility] and she said it helped a little. [...] reasonable to send her back to the [facility], and[place]an will be dialyzed on first shift Monday. I will have staff contact nurses at the [facility] and discuss her oxygen status, the possibility [...] 84.1 H Lymph % (Auto) 6.9 L Childress % (Auto) 6.1 Eos % (Auto) 1.5 [...] of significant diffuse pulmonary vascular congestion with [id number] bilateral pleural effusions. Underlying pneumonia to be ruled out. Follow-up until resolution is recommended. Reading Location: [id number] Rhythm Strip Rhythm Strip: Sinus Tach Rate: 110 Ectopy: None EKG Initial EKG: Attestation: I personally reviewed and interpreted this EKG as follows: Interpretation: No Acute Injury Pattern, Sinus Tachycardia and Non-Specific ST Changes Management Discussion w/another healthcare provider: [facility] (nephrology Dr. Barrios) Discharge Plan Triage Chief [...] tx acetaminophen 650 mg suppository 650 mg AK Q4H PRN (Reason: fever or pain) Enema 19-7 gram/118 mL enema 118 ml AK DAILY PRN (Reason: constipation) Rx Instructions: NEEDED [...] DISTRESS) bisacodyl 10 mg suppository 10 mg AK DAILY PRN (Reason: constipation) glucagon HCl [Glucagon [...] have the capability of dialyzing patients at [facility] until Monday after 7 AM 09/16/2024. Print Language: Angolan Disposition Disposition: Home, Self Care What to do if you have Problems For any increased pain, shortness of breath, bleeding, nausea or vomiting, chestpain, or any unexpected problems, contact your Primary Care Provider. Call [facility] ([phone]) or report to the closest Emergency Room. Call 911 if necessary. 09/15/24 3301 <Electronically signed by Constantin Jain MD> Cosigner Signature (if applicable): CC: Millie Massey MD ~ Signed [facility] Work Phone: Evaluation note* Diagnosis Hypothyroidism, unspecified type- [facility] Hypothyroidism, unspecified type- Primary Hip pain Pain in joint, pelvic region and thigh [facility] Diagnosis Hypothyroidism, unspecified type- Primary Hyperlipidemia, unspecified hyperlipidemia type [facility] Diagnosis Ganglion cyst of left foot- Primary Plantar fascial fibromatosis of left foot Plantar keratosis, acquired [facility] Diagnosis Acute non-recurrent maxillary sinusitis- [...] Hypothyroidism, unspecified type [facility] Diagnosis Idiopathic peripheral neuropathy- Primary Unspecified hereditary and idiopathic peripheral neuropathy [facility] Diagnosis Toe infection- Primary [facility] Diagnosis Acute non-recurrent maxillary sinusitis- Primary [facility]* Diagnosis Raynaud's phenomenon without gangrene- Primary Hypothyroidism, unspecified type [facility] Diagnosis Acute deep vein thrombosis (DVT) of axillary vein of left upper extremity (HCC)- Primary Acute deep vein thrombosis (DVT) of axillary vein of left upper extremity (HCC) Chest pain, unspecified type [facility] Diagnosis Acute deep vein thrombosis [...] the respiratory organs [facility] Diagnosis Acute deep vein thrombosis [...] on imaging study [facility] Diagnosis Acute deep vein thrombosis (DVT) of axillary vein of left upper extremity (HCC) [facility] Diagnosis Hypothyroidism, unspecified type [facility]* Diagnosis History of deep venous thrombosis- Primary Axillary lymphadenopathy Enlargement of lymph nodes Factor V Leiden mutation (HCC) Primary hypercoagulable state [facility]* Diagnosis Acute non-recurrent maxillary sinusitis- Primary Familial hypercholesteremia Pure hypercholesterolemia [facility]* Diagnosis Acute non-recurrent maxillary sinusitis- Primary Familial hypercholesteremia Pure hypercholesterolemia [facility]* Diagnosis Hyperlipidemia, unspecified hyperlipidemia type [E78.5]- Primary [facility] Diagnosis History of deep venous thrombosis- Primary [facility] Diagnosis History of deep venous thrombosis- Primary Reactive lymphadenopathy Factor V Leiden mutation (HCC) Primary hypercoagulable state [facility]* Diagnosis [...] neoplasm of breast [facility]* Diagnosis Hypothyroidism, unspecified type- Primary [facility] Diagnosis Acute deep vein thrombosis (DVT) of axillary vein of left upper extremity (HCC)- Primary [facility] Diagnosis History of deep venous thrombosis [facility] Diagnosis Acute deep vein thrombosis (DVT) of axillary vein of left upper extremity (HCC)- Primary [facility]* Diagnosis Right-sided low back pain with [...] Diagnosis Juxtarenal ruptured abdominal aortic aneurysm (AAA) ([facility])- Primary [facility]* Diagnosis Hypertension, unspecified type- Primary Orthostatic hypotension TUTU (acute kidney injury) ([facility]) Debility Unspecified debility Ruptured abdominal aortic aneurysm (AAA), unspecified part (HCC) Aftercare following surgery of the circulatory system Aftercare following surgery of the circulatory system, NEC [facility]* Diagnosis Acute deep vein thrombosis (DVT) of axillary vein of left upper extremity (HCC)- Primary [facility] Diagnosis Acute deep vein thrombosis (DVT) of axillary vein of left upper extremity (HCC)- Primary [facility]* Diagnosis Juxtarenal ruptured abdominal aortic aneurysm (AAA) ([facility])- Primary PVD (peripheral vascular disease) (HCC) Unspecified [...] examination of blood [facility] Diagnosis 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)- [facility] Hypothyroidism, unspecified type [facility] Diagnosis Ruptured abdominal aortic aneurysm (AAA) [...] (AAA) (HCC)- Primary [facility] Diagnosis Ruptured abdominal aortic aneurysm (AAA) [...] part (HCC)- [facility] Additional Instructions Received Lasix 80 mg in the ED, urinated several times, feeling much better, on a nasal cannula, resolution of chest discomfort. Pulmonary edema on x-ray, needs dialysis, but Lasix should temporize until Monday morning. Another dose prescribed in case she needs it later. Be aware that we do not have the capability of dialyzing patients at [facility] until Monday after 7 AM 09/16/2024.[facility] Work Phone: Instructions* Attachments The following attachments cannot be sent through Care Everywhere. * Smoking Cessation: Health Benefits: General Info (Angolan) [facility]* Attachments The following attachments cannot be sent through Care Everywhere. * DVT (Deep Vein Thrombosis) (Angolan) * Lung Cancer Screening: General Info (Angolan) [facility]* Attachments The following attachments cannot be sent through Care Everywhere. * PET Scan (Angolan) * MRI: Head (Angolan) [facility]* Attachments The following attachments cannot be sent through Care Everywhere. * Factor V Leiden (Angolan) * Warfarin Safety Tips (Angolan) * Coumadin (Warfarin) - Consistent Vitamin K Diet: Care Instructions (Angolan) * Warfarin: 5 Things You Can Do to Take It Safely: Video (Angolan) * Direct Oral Anticoagulants: Non-Vitamin K Antagonist (Angolan) [facility]* Visit Details Visit Type -SN Non-OASIS SOC Discipline -Long Term Problems Problem Start Date Status Goals Interventions Assess and Instruct Home Visit Disciplines: Long Term 11/06/2023 Active 1 goal linked to scheduled/documented intervention 4 goal interventions scheduled/documented in this visit Medication Management Disciplines: Long Term 11/06/2023 Active 1 goal linked to scheduled/documented intervention 1 goal intervention scheduled/documented in this visit Pain Management Disciplines: Long Term 11/06/2023 Active 1 goal linked to scheduled/documented [...] Management Goal:Pain Completed [facility] Visit Details Visit Type -SN Non-OASIS SOC Discipline -Long Term Problems Problem Start Date Status Goals Interventions Assess and Instruct Home Visit Disciplines: Long Term 11/06/2023 Active 1 goal linked to scheduled/documented intervention 4 goal interventions scheduled/documented in this visit Medication Management Disciplines: Long Term 11/06/2023 Active 1 goal linked to scheduled/documented intervention 1 goal intervention scheduled/documented in this visit Pain Management Disciplines: Long Term 11/06/2023 Active 1 goal linked to scheduled/documented [...] of care note* Visit Details Visit Type -PAINTER SPRAY Routine Discipline -Long Term Problems Problem Start Date Status Goals Interventions Assess and Instruct Home Visit Disciplines: Long Term 11/06/2023 Active 1 goal linked to scheduled/documented intervention 4 goal interventions scheduled/documented in this visit Medication Management Disciplines: Long Term 11/06/2023 Active 1 goal linked to scheduled/documented intervention 1 goal intervention scheduled/documented in this visit Pain Management Disciplines: Long Term 11/06/2023 Active 1 goal linked to scheduled/documented intervention 1 goal intervention scheduled/documented in this visit Lab/INR Disciplines: Long Term 11/07/2023 Active 1 goal linked to scheduled/documented [...] with result of 2.3. Results called into [facility] and spoke with Pharm. Cisneros. No new orders for coumadin, patient is to continue same dose. Next scheduled INR Monday11/14/2023 [facility] [...] Details Visit Type -SN Non-OASIS SOC Discipline -Long Term Problems Problem Start Date Status Goals Interventions Assess and Instruct Home Visit Disciplines: Long Term 11/06/2023 Active 1 goal linked to scheduled/documented intervention 4 goal interventions scheduled/documented in this visit Medication Management Disciplines: Long Term 11/06/2023 Active 1 goal linked to scheduled/documented intervention 1 goal intervention scheduled/documented in this visit Pain Management Disciplines: Long Term 11/06/2023 Active 1 goal linked to scheduled/documented [...] Management Goal:Pain Completed [facility] Visit Details Visit Type -PAINTER SPRAY Routine Discipline -Long Term Problems Problem Start Date Status Goals Interventions Assess and Instruct Home Visit Disciplines: Long Term 11/06/2023 Active 1 goal linked to scheduled/documented intervention 4 goal interventions scheduled/documented in this visit Medication Management Disciplines: Long Term 11/06/2023 Active 1 goal linked to scheduled/documented intervention 1 goal intervention scheduled/documented in this visit Pain Management Disciplines: Long Term 11/06/2023 Active 1 goal linked to scheduled/documented [...] Management Goal:Pain Completed [facility] Visit [...] and improved circulation. [facility] Visit Details Visit Type -SN Non-OASIS SOC Discipline -Long Term Problems Problem Start Date Status Goals Interventions Assess and Instruct Home Visit Disciplines: Long Term 11/06/2023 Active 1 goal linked to scheduled/documented intervention 4 goal interventions scheduled/documented in this visit Medication Management Disciplines: Long Term 11/06/2023 Active 1 goal linked to scheduled/documented intervention 1 goal intervention scheduled/documented in this visit Pain Management Disciplines: Long Term 11/06/2023 Active 1 goal linked to scheduled/documented [...] Management Goal:Pain Completed [facility] Visit Details Visit Type -INSULATION AND FLOORING ASSEMBLER Routine Visi t Discipline -Physical Therapy Problems [...] intervention at next visit: Next visit with INSULATION AND FLOORING ASSEMBLER to continue improving strength and balance in order to maximize safety with ambulation and functional transfers. Home Exercise Program Problem:Home Exercise Program Goal:Home Exercise Program Completed Patient reports: good understanding of HEP Clinician taught: patient Clinician instructed on: INSULATION AND FLOORING ASSEMBLER provides skilled instruct to perform standing therex at FWW for support including marching, hip flexion, hs curls, and, DF/PF 10x each in order to increase strength in weight bearing, progress towards LTGs, and demo increased ease with ambulation. Pt required several seated rest break due to quickly becoming fatigued and dizzy. INSULATION AND FLOORING ASSEMBLER monitored BP with readings all reamaining WNL at 124/70 and 106/67. Pt reports thats too low for me. INSULATION AND FLOORING ASSEMBLER provides skilled instruct to perform seated therex [...] falls Clinician taught: patient Clinician instructed on: INSULATION AND FLOORING ASSEMBLER provides skilled instruct to perform various transfers as outlined in transfers log requiring cues for appropriate technique and sequencing to maximize safety and to facilitate improved overall independence with ADLs. INSULATION AND FLOORING ASSEMBLER provides skilled instruct to ambulate with FWW with INSULATION AND FLOORING ASSEMBLER CGA during - provides cues/education to improve overall gait sequencing/pattern to maximize safety and decrease fall risk in order to progress independence towards STGs/LTGs. INSULATION AND FLOORING ASSEMBLER provides skilled instruct to ascend/descend 7 stairs this date with B UE assist on HR and noUE assist on AD for support with step to pattern and CGA. Patient/caregiver is able to teach back 100% of instruction. [facility] Visit Details [...] of care note* Visit Details Visit Type -INSULATION AND FLOORING ASSEMBLER Routine Visi t Discipline -Physical Therapy Problems [...] intervention at next visit: Next visit with INSULATION AND FLOORING ASSEMBLER to continue improving strength and balance in order to maximize safety with ambulation and functional transfers. Home Exercise Program Problem:Home Exercise Program Goal:Home Exercise Program Completed Patient reports: good understanding of HEP Clinician taught: patient Clinician instructed on: INSULATION AND FLOORING ASSEMBLER provides skilled instruct to perform standing therex at FWW for support including marching, hip flexion, hs curls, and, DF/PF 10x each in order to increase strength in weight bearing, progress towards LTGs, and demo increased ease with ambulation. Pt required several seated rest break due to quickly becoming fatigued and dizzy. INSULATION AND FLOORING ASSEMBLER monitored BP with readings all reamaining WNL at 124/70 and 106/67. Pt reports thats too low for me. INSULATION AND FLOORING ASSEMBLER provides skilled instruct to perform seated therex [...] falls Clinician taught: patient Clinician instructed on: INSULATION AND FLOORING ASSEMBLER provides skilled instruct to perform various transfers as outlined in transfers log requiring cues for appropriate technique and sequencing to maximize safety and to facilitate improved overall independence with ADLs. INSULATION AND FLOORING ASSEMBLER provides skilled instruct to ambulate with FWW with INSULATION AND FLOORING ASSEMBLER CGA during - provides cues/education to improve overall gait sequencing/pattern to maximize safety and decrease fall risk in order to progress independence towards STGs/LTGs. INSULATION AND FLOORING ASSEMBLER provides skilled instruct to ascend/descend 7 stairs this date with B UE assist on HR and noUE assist on AD for support with step to pattern and CGA. Patient/caregiver is able to teach back 100% of instruction. [facility] Visit Details Visit Type -PAINTER SPRAY HH Routine Discipline -Long Term Problems Problem Start Date Status Goals Interventions Assess and Instruct Home Visit Disciplines: Long Term 11/06/2023 Active 1 goal linked to scheduled/documented intervention 4 goal interventions scheduled/documented in this visit Medication Management Disciplines: Long Term 11/06/2023 Active 1 goal linked to scheduled/documented intervention 1 goal intervention scheduled/documented in this visit Pain Management Disciplines: Long Term 11/06/2023 Active 1 goal linked to scheduled/documented [...] Management Goal:Pain Completed [facility] Visit Details Visit Type -INSULATION AND FLOORING ASSEMBLER Routine Visi t Discipline -Physical Therapy Problems [...] intervention at next visit: Next visit with INSULATION AND FLOORING ASSEMBLER to continue improving strength and balance in order to maximize safety with ambulation and functional transfers. Home Exercise Program Problem:Home Exercise Program Goal:Home Exercise Program Completed Patient reports: fair compliance Clinician taught: patient Clinician instructed on: INSULATION AND FLOORING ASSEMBLER provides skilled instruct to perform seated therex [...] falls Clinician taught: patient Clinician instructed on: INSULATION AND FLOORING ASSEMBLER provides skilled instruct to ascend/descend 7 stairs this date with B UE assist on HR and noUE assist on AD for support with step to pattern and CGA for safety. INSULATION AND FLOORING ASSEMBLER provides skilled instruct to perform STS transfers requiring VC for proper hand placement to rise and lower self from surface safely and for controlled descent upon sitting to ensure safety. Patient uses BUE to rise and lower self and utilizes FWW upon standing for support with good immediate standing balance displayed - patient achieve stand on first attempt 100% of time this date. INSULATION AND FLOORING ASSEMBLER provides skilled instruct to ambulate with FWW with INSULATION AND FLOORING ASSEMBLER CGA during - provides cues/education to improve overall gait sequencing/pattern to maximize safety and decrease fall risk in order to progress independence towards STGs/LTGs. Pt unable to amb further distances at a time due to becoming light headed while up. Patient/caregiver is able to teach back 100% of instruction. [facility] Visit Details [...] 80% of instruction. [facility] Visit Details Visit Type -INSULATION AND FLOORING ASSEMBLER Routine Visi t Discipline -Physical Therapy Problems [...] intervention at next visit: Next visit with INSULATION AND FLOORING ASSEMBLER to continue improving strength and balance in order to maximize safety with ambulation and functional transfers. [facility] [...] HEP Skilled intervention at next visit: OT Home Exercise Program Problem:Home Exercise Program Goal:Home [...] of care note* Visit Details Visit Type -INSULATION AND FLOORING ASSEMBLER Routine Visi t Discipline -Physical Therapy Problems [...] intervention at next visit: Next visit with INSULATION AND FLOORING ASSEMBLER to continue improving strength and balance in order to maximize safety with ambulation and functional transfers. Home Exercise Program Problem:Home Exercise Program Goal:Home Exercise Program Completed Patient reports: fair compliance Clinician taught: patient Clinician instructed on: INSULATION AND FLOORING ASSEMBLER provides skilled instruct to perform standing therex at FWW for support including marching, hip flexion, hs curls, DF/PF, and mini squats 10x each in order to increase strength in weight bearing, progress towards LTGs, and demo increased ease with ambulation. Pt required several seated rest breaks between each exericse and reports my back hurts or im lightheaded. INSULATION AND FLOORING ASSEMBLER attempted to encourage pt to stand for prolonged time and pt declined. Patient/caregiver is able to teach back 100% of instruction. Instruct Mobility Problem:Mobility Goal:Mobility Completed Patient reports: no falls Clinician taught: patient Clinician instructed on: INSULATION AND FLOORING ASSEMBLER provides skilled instruct to ascend/descend 7 stairs this date with one UE assist on HR and no UE assist on AD for support with step to pattern and SBA. INSULATION AND FLOORING ASSEMBLER provides skilled instruct to ambulate 30ft 2x with FWW with INSULATION AND FLOORING ASSEMBLER SBA during - provides cues/education to improve overall gait sequencing/pattern to maximize safety and decrease fall risk in order to progress independence towards STGs/LTGs. Pt declined to amb further distances at a time and reports my back hurts. Pt will be obtaining a SPC to trial soon. INSULATION AND FLOORING ASSEMBLER provides skilled instruct to perform various transfers as outlined in transfers log requiring cues for appropriate technique and sequencing to maximize safety and to facilitate improved overall independence with ADLs. Patient/caregiver is able to teach back 100% of instruction. [facility] Visit [...] 80% of instruction. [facility] Visit Details Visit Type -INSULATION AND FLOORING ASSEMBLER Routine Visi t Discipline -Physical Therapy Problems [...] intervention at next visit: Next visit with INSULATION AND FLOORING ASSEMBLER to continue improving strength and balance in order to maximize safety with ambulation and functional transfers. Home Exercise Program Problem:Home Exercise Program Goal:Home Exercise Program Completed Patient reports: fair compliance Clinician taught: patient Clinician instructed on: INSULATION AND FLOORING ASSEMBLER provides skilled instruct to perform seated therex [...] falls Clinician taught: patient Clinician instructed on: INSULATION AND FLOORING ASSEMBLER provides skilled instruct to ascend/descend 7 stairs this date with one UE assist on HR and no UE assist on AD for support with step to pattern and SBA. INSULATION AND FLOORING ASSEMBLER provides skilled instruct to perform consecutive STS [...] first attempt 100% of time this date. INSULATION AND FLOORING ASSEMBLER provides skilled instruct to ambulate with FWW with INSULATION AND FLOORING ASSEMBLER SBA during - provides cues/education to improve overall gait sequencing/pattern to maximize safety and decrease fall risk in order to progress independence towards STGs/LTGs. Pt reports she has a SPC coming today. Patient/caregiver is able to teach back 100% of instruction. documented in this encounter [facility]'s home Plan of care note* Visit Details Visit Type -PAINTER SPRAY HH Routine Discipline -Long Term Problems Problem Start Date Status Goals Interventions Assess and Instruct Home Visit Disciplines: Long Term 11/06/2023 Active 1 goal linked to scheduled/documented intervention 4 goal interventions scheduled/documented in this visit Medication Management Disciplines: Long Term 11/06/2023 Active 1 goal linked to scheduled/documented intervention 1 goal intervention scheduled/documented in this visit Pain Management Disciplines: Long Term 11/06/2023 Active 1 goal linked to scheduled/documented [...] Management Goal:Pain Completed [facility] [...] the 5# weights. [facility] Visit Details Visit Type -INSULATION AND FLOORING ASSEMBLER Routine Visi t Discipline -Physical Therapy Problems [...] intervention at next visit: Next visit with INSULATION AND FLOORING ASSEMBLER to continue improving strength and balance in order to maximize safety with ambulation and functional transfers. Home Exercise Program Problem:Home Exercise Program Goal:Home Exercise Program Completed Patient reports: fair compliance Clinician taught: patient Clinician instructed on: INSULATION AND FLOORING ASSEMBLER provides skilled instruct to perform seated therex [...] falls Clinician taught: patient Clinician instructed on: INSULATION AND FLOORING ASSEMBLER provides skilled instruct to ascend/descend 7 stairs this date with B UE assist on HR and noUE assist on AD for support with step to pattern and CGA for safety. INSULATION AND FLOORING ASSEMBLER provides skilled instruct to perform STS transfers requiring VC for proper hand placement to rise and lower self from surface safely and for controlled descent upon sitting to ensure safety. Patient uses BUE to rise and lower self and utilizes FWW upon standing for support with good immediate standing balance displayed - patient achieve stand on first attempt 100% of time this date. INSULATION AND FLOORING ASSEMBLER provides skilled instruct to ambulate with FWW with INSULATION AND FLOORING ASSEMBLER CGA during - provides cues/education to improve overall gait sequencing/pattern to maximize safety and decrease fall risk in order to progress independence towards STGs/LTGs. Pt unable to amb further distances at a time due to becoming light headed while up. Patient/caregiver is able to teach back 100% of instruction. [facility] Visit Details Visit Type -INSULATION AND FLOORING ASSEMBLER Routine Visi t Discipline -Physical Therapy Problems [...] intervention at next visit: Next visit with INSULATION AND FLOORING ASSEMBLER to continue improving strength and balance in order to maximize safety with ambulation and functional transfers. Home Exercise Program Problem:Home Exercise Program Goal:Home Exercise Program Completed Patient reports: fair compliance Clinician taught: patient Clinician instructed on: INSULATION AND FLOORING ASSEMBLER provides skilled instruct to perform standing therex at FWW for support including marching, hip flexion, hs curls, DF/PF, and mini squats 10x each in order to increase strength in weight bearing, progress towards LTGs, and demo increased ease with ambulation. Pt required several seated rest breaks between each exericse and reports my back hurts or im lightheaded. INSULATION AND FLOORING ASSEMBLER attempted to encourage pt to stand for prolonged time and pt declined. Patient/caregiver is able to teach back 100% of instruction. Instruct Mobility Problem:Mobility Goal:Mobility Completed Patient reports: no falls Clinician taught: patient Clinician instructed on: INSULATION AND FLOORING ASSEMBLER provides skilled instruct to ascend/descend 7 stairs this date with one UE assist on HR and no UE assist on AD for support with step to pattern and SBA. INSULATION AND FLOORING ASSEMBLER provides skilled instruct to ambulate 30ft 2x with FWW with INSULATION AND FLOORING ASSEMBLER SBA during - provides cues/education to improve overall gait sequencing/pattern to maximize safety and decrease fall risk in order to progress independence towards STGs/LTGs. Pt declined to amb further distances at a time and reports my back hurts. Pt will be obtaining a SPC to trial soon. INSULATION AND FLOORING ASSEMBLER provides skilled instruct to perform various transfers as outlined in transfers log requiring cues for appropriate technique and sequencing to maximize safety and to facilitate improved overall independence with ADLs. Patient/caregiver is able to teach back 100% of instruction. [facility] Visit Details Visit Type -INSULATION AND FLOORING ASSEMBLER Routine Visi t Discipline -Physical Therapy Problems [...] intervention at next visit: Next visit with INSULATION AND FLOORING ASSEMBLER to continue improving strength and balance in order to maximize safety with ambulation and functional transfers. [facility] Visit Details Visit Type -INSULATION AND FLOORING ASSEMBLER Routine Visi t Discipline -Physical Therapy Problems [...] compliance Clinician taught: patient Clinician instructed on: INSULATION AND FLOORING ASSEMBLER provided extensive education on importance of compliance with HEP and purpose of completing daily in oder to facilitate strength, balance, and endurance in order to return to PLOF. Pt verbalized fair understanding. Patient/caregiver is able to teach back 100% of instruction. Instruct Mobility Problem:Mobility Goal:Mobility Completed Patient reports: no falls Clinician taught: patient Clinician instructed on: INSULATION AND FLOORING ASSEMBLER provides skilled instruct to ascend/descend 7 stairs this date with one UE assist on HR and one UE assist on SPC for support with step to pattern and SBA. INSULATION AND FLOORING ASSEMBLER provides skilled instruct to perform various transfers as outlined in transfers log requiring cues for appropriate technique and sequencing to maximize safety and to facilitate improved overall independence with ADLs. INSULATION AND FLOORING ASSEMBLER provides skilled instruct to ambulate 30ft 3x with SPC with INSULATION AND FLOORING ASSEMBLER CGA during - provides cues/education to improve [...] in. Pt was still in bed when INSULATION AND FLOORING ASSEMBLER arrived at 11:15am. pt required cues for proper sequencing of spc today with fair+ return. INSULATION AND FLOORING ASSEMBLER provides skilled instruct to perform consecutive STS [...] 100% of instruction. [facility] Visit Details Visit Type -SN HH Routine Vi sit Discipline -Long Term Problems Problem Start Date Status Goals Interventions Assess and Instruct Home Visit Disciplines: Long Term 11/06/2023 Active 1 goal linked to scheduled/documented intervention 4 goal interventions scheduled/documented in this visit Medication Management Disciplines: Long Term 11/06/2023 Active 1 goal linked to scheduled/documented intervention 1 goal intervention scheduled/documented in this visit Pain Management Disciplines: Long Term 11/06/2023 Active 1 goal linked to scheduled/documented intervention 1 goal intervention scheduled/documented in this visit Lab/INR Disciplines: Long Term 11/07/2023 Active 1 goal linked to scheduled/documented [...] Completed Anticoagulation Therapy Problem:Lab/INR Goal:Anticoagulation Therapy Completed May collect specimen from: Fingerstick Collection Date/Frequency: 12/13/23. Communicate results to [facility]. Instruct on special precautions and when to contact the provider. If fingerstick INR is 4 or greater, perform a peripheral lab draw. documented in this encounter [facility]'s home Plan of care note* [...] Care Plan Scheduled documented in this encounter [facility]'s home Plan of care note* Visit Details Visit Type -INSULATION AND FLOORING ASSEMBLER Routine Visi t Discipline -Physical Therapy Problems [...] compliance Clinician taught: patient Clinician instructed on: INSULATION AND FLOORING ASSEMBLER provided extensive education on importance of compliance with HEP and purpose of completing daily in oder to facilitate strength, balance, and endurance in order to return to PLOF. Pt verbalized fair understanding. Patient/caregiver is able to teach back 100% of instruction. Instruct Mobility Problem:Mobility Goal:Mobility Completed Patient reports: no falls Clinician taught: patient Clinician instructed on: INSULATION AND FLOORING ASSEMBLER provides skilled instruct to ascend/descend 7 stairs this date with one UE assist on HR and one UE assist on SPC for support with step to pattern and SBA. INSULATION AND FLOORING ASSEMBLER provides skilled instruct to perform various transfers as outlined in transfers log requiring cues for appropriate technique and sequencing to maximize safety and to facilitate improved overall independence with ADLs. INSULATION AND FLOORING ASSEMBLER provides skilled instruct to ambulate 30ft 3x with SPC with INSULATION AND FLOORING ASSEMBLER CGA during - provides cues/education to improve [...] in. Pt was still in bed when INSULATION AND FLOORING ASSEMBLER arrived at 11:15am. pt required cues for proper sequencing of spc today with fair+ return. INSULATION AND FLOORING ASSEMBLER provides skilled instruct to perform consecutive STS [...] 100% of instruction. documented in this encounter [facility] home Plan of care note* Visit Details Visit Type -SN HH Routine Vi sit Discipline -Long Term Problems Problem Start Date Status Goals Interventions Assess and Instruct Home Visit Disciplines: Long Term 11/06/2023 Active 1 goal linked to scheduled/documented intervention 4 goal interventions scheduled/documented in this visit Medication Management Disciplines: Long Term 11/06/2023 Active 1 goal linked to scheduled/documented intervention 1 goal intervention scheduled/documented in this visit Pain Management Disciplines: Long Term 11/06/2023 Active 1 goal linked to scheduled/documented intervention 1 goal intervention scheduled/documented in this visit Lab/INR Disciplines: Long Term 11/07/2023 Active 1 goal linked to scheduled/documented intervention 1 goal intervention scheduled/documented in this visit Cardiac Disciplines: Long Term 11/14/2023 Active 1 goal linked to scheduled/documented [...] of care note* Visit Details Visit Type -INSULATION AND FLOORING ASSEMBLER Routine Visi t Discipline -Physical Therapy Problems [...] intervention at next visit: Next visit with INSULATION AND FLOORING ASSEMBLER to continue improving strength and balance in order to maximize safety with ambulation and functional transfers. Home Exercise Program Problem:Home Exercise Program Goal:Home Exercise Program Completed Patient reports: poor compliance with HEP Clinician taught: patient Clinician instructed on: INSULATION AND FLOORING ASSEMBLER provides skilled instruct to peform various balance [...] AD. Clinician taught: patient Clinician instructed on: INSULATION AND FLOORING ASSEMBLER provides skilled instruct to ambulate 110ft with no AD with INSULATION AND FLOORING ASSEMBLER CGA-SBA during - provides cues/education to improve overall gait sequencing/pattern to maximize safety and decrease fall risk in order to progress independence towards STGs/LTGs. INSULATION AND FLOORING ASSEMBLER provides skilled instruct to perform consecutive STS [...] 100% of instruction. [facility] Visit Details Visit Type -INSULATION AND FLOORING ASSEMBLER Routine Visi t Discipline -Physical Therapy Problems [...] intervention at next visit: Next visit with INSULATION AND FLOORING ASSEMBLER to continue improving strength and balance in order to maximize safety with ambulation and functional transfers. Home Exercise Program Problem:Home Exercise Program Goal:Home Exercise Program Completed Patient reports: poor compliance Clinician taught: patient Clinician instructed on: INSULATION AND FLOORING ASSEMBLER provides skilled instruct to perform standing therex [...] falls Clinician taught: patient Clinician instructed on: INSULATION AND FLOORING ASSEMBLER provides skilled instruct to perform various transfers as outlined in transfers log requiring cues for appropriate technique and sequencing to maximize safety and to facilitate improved overall independence with ADLs. INSULATION AND FLOORING ASSEMBLER provides skilled instruct to ascend/descend 6 stairs this date with one UE assist on HR and no UE assist on AD for support with alternating pattern and SBA. INSULATION AND FLOORING ASSEMBLER provides skilled instruct to ambulate with no AD with INSULATION AND FLOORING ASSEMBLER SBA during - provides cues/education to improve [...] of care note* Visit Details Visit Type -INSULATION AND FLOORING ASSEMBLER Routine Visi t Discipline -Physical Therapy Problems [...] intervention at next visit: Next visit with INSULATION AND FLOORING ASSEMBLER to continue improving strength and balance in order to maximize safety with ambulation and functional transfers. Home Exercise Program Problem:Home Exercise Program Goal:Home Exercise Program Completed Patient reports: poor compliance Clinician taught: patient Clinician instructed on: INSULATION AND FLOORING ASSEMBLER reviews HEP with patient. Patient demos good recall with technique and reports poor compliance with exercise program. Education provided on importance of performing HEP daily to facilitate strength and balance to return to PLOF. Patient/caregiver is able to teach back 100% of instruction. Instruct Mobility Problem:Mobility Goal:Mobility Completed Patient reports: no falls Clinician taught: patient Clinician instructed on: INSULATION AND FLOORING ASSEMBLER provides skilled instruct to ambulate with no AD with INSULATION AND FLOORING ASSEMBLER SBA during - provides cues/education to improve overall gait sequencing/pattern to maximize safety and decrease fall risk in order to progress independence towards STGs/LTGs. Pt required cues for increased step length/height. INSULATION AND FLOORING ASSEMBLER provides skilled instruct to perform consecutive STS [...] 100% of time this date with SBA. INSULATION AND FLOORING ASSEMBLER provides skilled instruct to peform various balance [...] of care note* Visit Details Visit Type -PAINTER SPRAY Routine Discipline -Long Term Problems Problem Start Date Status Goals Interventions Assess and Instruct Home Visit Disciplines: Long Term 11/06/2023 Active 1 goal linked to scheduled/documented intervention 4 goal interventions scheduled/documented in this visit Medication Management Disciplines: Long Term 11/06/2023 Active 1 goal linked to scheduled/documented intervention 1 goal intervention scheduled/documented in this visit Pain Management Disciplines: Long Term 11/06/2023 Active 1 goal linked to scheduled/documented [...] Management Goal:Pain Completed [facility] Visit Details Visit Type -INSULATION AND FLOORING ASSEMBLER Routine Visi t Discipline -Physical Therapy Problems [...] intervention at next visit: Next visit with INSULATION AND FLOORING ASSEMBLER to continue improving strength and balance in order to maximize safety with ambulation and functional transfers. Home Exercise Program Problem:Home Exercise Program Goal:Home Exercise Program Completed Patient reports: poor compliance Clinician taught: patient Clinician instructed on: INSULATION AND FLOORING ASSEMBLER provides skilled instruct to peform various balance [...] falls Clinician taught: patient Clinician instructed on: INSULATION AND FLOORING ASSEMBLER provides skilled instruct to perform consecutive STS [...] first attempt 100% of time this date. INSULATION AND FLOORING ASSEMBLER provides skilled instruct to ascend/descend 7 stairs this date with one UE assist on HR and no UE assist on AD for support with step to pattern and S. INSULATION AND FLOORING ASSEMBLER provides skilled instruct to ambulate with no AD with INSULATION AND FLOORING ASSEMBLER SBA during - provides cues/education to improve overall gait sequencing/pattern to maximize safety and decrease fall risk in order to progress independence towards STGs/LTGs. Patient/caregiver is able to teach back 100% of instruction. [facility] Visit Details Visit Type -INSULATION AND FLOORING ASSEMBLER Routine Visi t Discipline -Physical Therapy Problems [...] 90% of instruction. Instruct Post-op Care Problem:Disease-Spec [facility] Rehabilitation Goal:Post-Surgical Task already performed Instruct Mobility Problem:Mobility Goal:Mobility Completed Patient reports: ADLS with no AD Clinician taught: patient Clinician instructed on: INSULATION AND FLOORING ASSEMBLER provides skilled instructions to ambulate short functional distances in home of 3 minute bout with no AD. Pt demo slow pacing with decreased step height and stride length with INSULATION AND FLOORING ASSEMBLER providing CG/SBA during for safety. Verbal cues to improve posture, step height and stride length with 80% recall of proper energy conservation techniques such as posture, breathing and slowing pace. Fatigue reported after with some SOB and vitals WNL, noted INSULATION AND FLOORING ASSEMBLER attempted extending time bout to improve endurance however patient refused stating she needed sitting rest break. INSULATION AND FLOORING ASSEMBLER provided instructions for patient to ascend and [...] 80% of instruction. [facility] Visit Details [...] Care Plan Scheduled documented in this encounter [facility] home Plan of care note* Visit Details Visit Type -INSULATION AND FLOORING ASSEMBLER Routine Visi t Discipline -Physical Therapy Problems [...] 90% of instruction. Instruct Post-op Care Problem:Disease-[facility] Rehabilitation Goal:Post-Surgical Task already performed Instruct Mobility Problem:Mobility Goal:Mobility Completed Patient reports: ADLS with no AD Clinician taught: patient Clinician instructed on: INSULATION AND FLOORING ASSEMBLER provides skilled instructions to ambulate short functional distances in home of 3 minute bout with no AD. Pt demo slow pacing with decreased step height and stride length with INSULATION AND FLOORING ASSEMBLER providing CG/SBA during for safety. Verbal cues to improve posture, step height and stride length with 80% recall of proper energy conservation techniques such as posture, breathing and slowing pace. Fatigue reported after with some SOB and vitals WNL, noted INSULATION AND FLOORING ASSEMBLER attempted extending time bout to improve endurance however patient refused stating she needed sitting rest break. INSULATION AND FLOORING ASSEMBLER provided instructions for patient to ascend and [...] 80% of instruction. [facility] Visit Details Visit Type -INSULATION AND FLOORING ASSEMBLER Routine Visi t Discipline -Physical Therapy Problems [...] intervention at next visit: Next visit with INSULATION AND FLOORING ASSEMBLER to continue improving strength and balance in order to maximize safety with ambulation and functional transfers. Home Exercise Program Problem:Home Exercise Program Goal:Home Exercise Program Completed Patient reports: poor compliance Clinician taught: patient Clinician instructed on: INSULATION AND FLOORING ASSEMBLER provides skilled instruct to peform various balance [...] falls Clinician taught: patient Clinician instructed on: INSULATION AND FLOORING ASSEMBLER provides skilled instruct to perform consecutive STS [...] first attempt 100% of time this date. INSULATION AND FLOORING ASSEMBLER provides skilled instruct to ascend/descend 7 stairs this date with one UE assist on HR and no UE assist on AD for support with step to pattern and S. INSULATION AND FLOORING ASSEMBLER provides skilled instruct to ambulate with no AD with INSULATION AND FLOORING ASSEMBLER SBA during - provides cues/education to improve overall gait sequencing/pattern to maximize safety and decrease fall risk in order to progress independence towards STGs/LTGs. Patient/caregiver is able to teach back 100% of instruction. [facility] Visit Details Visit Type -INSULATION AND FLOORING ASSEMBLER Routine Visi t Discipline -Physical Therapy Problems [...] intervention at next visit: Next visit with INSULATION AND FLOORING ASSEMBLER to continue improving strength and balance in order to maximize safety with ambulation and functional transfers. Home Exercise Program Problem:Home Exercise Program Goal:Home Exercise Program Completed Patient reports: poor compliance Clinician taught: patient Clinician instructed on: INSULATION AND FLOORING ASSEMBLER reviews HEP with patient. Patient demos good recall with technique and reports poor compliance with exercise program. Education provided on importance of performing HEP daily to facilitate strength and balance to return to PLOF. Patient/caregiver is able to teach back 100% of instruction. Instruct Mobility Problem:Mobility Goal:Mobility Completed Patient reports: no falls Clinician taught: patient Clinician instructed on: INSULATION AND FLOORING ASSEMBLER provides skilled instruct to ambulate with no AD with INSULATION AND FLOORING ASSEMBLER SBA during - provides cues/education to improve overall gait sequencing/pattern to maximize safety and decrease fall risk in order to progress independence towards STGs/LTGs. Pt required cues for increased step length/height. INSULATION AND FLOORING ASSEMBLER provides skilled instruct to perform consecutive STS [...] 100% of time this date with SBA. INSULATION AND FLOORING ASSEMBLER provides skilled instruct to peform various balance [...] of care note* Visit Details Visit Type -PAINTER SPRAY Routine Discipline -Long Term Problems Problem Start Date Status Goals Interventions Assess and Instruct Home Visit Disciplines: Long Term 11/06/2023 Active 1 goal linked to scheduled/documented intervention 4 goal interventions scheduled/documented in this visit Medication Management Disciplines: Long Term 11/06/2023 Active 1 goal linked to scheduled/documented intervention 1 goal intervention scheduled/documented in this visit Pain Management Disciplines: Long Term 11/06/2023 Active 1 goal linked to scheduled/documented [...] Management Goal:Pain Completed [facility] Visit Details Visit Type -SN [facility] [place] Discipline -Long Term Problems Problem Start Date Status Goals Interventions Assess and Instruct Home Visit Disciplines: Long Term 11/06/2023 Resolved on 01/03/2024 1 goal linked to scheduled/documented intervention 4 goal interventions scheduled/documented in this visit Medication Management Disciplines: Long Term 11/06/2023 Resolved on 01/03/2024 1 goal linked to scheduled/documented intervention 1 goal intervention scheduled/documented in this visit Pain Management Disciplines: Long Term 11/06/2023 Resolved on 01/03/2024 1 goal linked to scheduled/documented intervention 1 goal intervention scheduled/documented in this visit Lab/INR Disciplines: Long Term 11/07/2023 Resolved on 01/03/2024 1 goal linked to scheduled/documented intervention 1 goal intervention scheduled/documented in this visit Cardiac Disciplines: Long Term 11/14/2023 Resolved on 01/03/2024 1 goal linked [...] See narrative note. [facility] Narratives INR to be [...] dry them thoroughly. [facility] Narratives INR to [...] with result of 2.3. Results called into [facility] and spoke with Pharm. Cisneros. [...] and falls risk reduction. OWNS (DME): FWW, wc FALLS: denies falls APPTS: 11/17/2023 8:00 AM [...] be right out. [facility] and was about to descend stairs and reports she has to use the restroom again and states he has had diarrhea this morning. Pt states I dont think I should do any therapy this morning. I need to go lay back down because i just keep leaking. INSULATION AND FLOORING ASSEMBLER checked pt vitals and BP running slightly high, but pt states she has not had a chance to take her medication yet. INSULATION AND FLOORING ASSEMBLER notified PCP. Education provided on importance of staying hydrated with pt verbalizing understanding. [facility] Actions Homebound Status Criteria 1: Assistive Device(s): Cane and Walker Needs assistance of at least 1 to leave home Criteria 2: Patient confined to home due to limited endurance related to major surgery/hospitalization and BP fluctuations. Type of Home: split level home [facility] Actions Homebound Status Criteria 1: Assistive Device(s): Cane and Walker Needs assistance of at least 1 to leave home Criteria 2: Patient confined to home due to limited endurance related to major surgery/hospitalization and BP fluctuations. Type of Home: split level home [facility] Actions Homebound Status Criteria 1: Assistive Device(s): Cane and Walker Needs assistance of at least 1 to leave home Criteria 2: Patient confined to home due to limited ambulation related to cardiac sx Type of Home: split level / walkout DC patient once goals are met and max potential has been achieved through progressive interventions/education [facility] Actions Homebound Status Criteria 1: Assistive Device(s): Cane and Walker Needs assistance of at least 1 to leave home Criteria 2: Patient confined to home due to limited endurance related to major surgery/hospitalization and BP fluctuations. Type of Home: split level home [facility] Actions Homebound Status Criteria [...] back down because i just keep leaking. INSULATION AND FLOORING ASSEMBLER checked pt vitals and BP running slightly high, but pt states she has not had a chance to take her medication yet. INSULATION AND FLOORING ASSEMBLER notified PCP. Education provided on importance of [...] Rolling Walker Narratives INR called into the [facility]; spoke with Yenny. New coumadin orders: 2.5mg m/w/ and 5mg on all other days. Re-check INR 12/20/23 and call in with results. Wound care provided to darkened areas on right great toe and 5th toe, left great toe. Skin prep applied and pics uploaded. Patient given skin prep packets to apply 1-2x daily until she sees the vascular physician 12/26/23. Order for skin prep [facility] with [facility]. [facility] Actions CP assess, BP elevated, all other VS WNL. Dr Quispe aware of increased BP. Fingerstick INR of 4.4. Coumadin clinic updated. She is to hold tonights dose. Attempted two blood draws without success. Patient will go to [facility] tomorrow to get her BMP and INR [...] [facility] Narratives PT to d/c [...] INR result of 2.1. Result called into [facility]. No new orders received. Pt verbalizes understanding coumadin dose to remain the same. Pt reports she will be going back to work and requests to be DC from home care. Coumadin clinic made aware pt will need to be seen in office starting next week. mine engineering manager made aware of pt request. Vital [...] day to rest. documented [facility] this [facility])No reason for referral information [facility]WBl[facility] Work Phone: Assessments Diagnosis Lumbosacral radiculopathy - Primary Thoracic or lumbosacral neuritis or radiculitis, unspecified Sciatica of left side Pain of left lower extremity Diagnosis Pain of left lower extremity Diagnosis Pain of left lower extremity - Primary Encounter for hepatitis C sc reening test for low risk patient Hyperlipidemia, [...] Documents on File Type Date Recorded Patient Licensed Midwife Expl anation Advance Directives and Livin g Will 09/14/2018 6:07 PM Documents on File Type Date Recorded Patient Licensed Midwife Expl anation Advance Directives and Livin g [...] Recorded Date/ Time Living Will Yes July 23, 2 025 8:43pm Power of White Mixing Operator Yes July 23, 2024 8:43pm Name of Medical Power of White Mixing Operator ? July 23, 2024 8:43pm Living Will No August 14, 2024 7:33am Power of White Mixing Operator No August 14 7:33am Living Will No July 18 11:13am Power of White Mixing Operator Yes July 18, 2024 11:13am Name of Medical Power of White Mixing Operator SRIARM ALVARES July 18, 2024 11:13am Living Will Yes July 31, 2024 6:15pm Power of White Mixing Operator Yes July 31 6:15pm Name of Medical Power of White Mixing Operator SRIRAM July 31, 2024 6:15pm Advance Directive Response Recorded Date/ Time Living Will Yes July 23 8:43pm Do you have a Healthcare Power of White Mixing Operator? Yes July 23, 2024 8:43pm Name of Medical Power of White Mixing Operator ? July 23, 2024 8:43pm Living Will No August 14, 2024 12:54pm Do you have a Healthcare Power of White Mixing Operator? No August 14, 2024 12:54pm Living Will No July 18 11:13am Do you have a Healthcare Power of White Mixing Operator? Yes July 18, 2024 11:13am Name of Medical Power of White Mixing Operator SRIRAM ALVARES July 18, 2024 11:13am Living Will Yes July 31, 2024 6:15pm Do you have a Healthcare Power of White Mixing Operator? Yes July 31, 2024 6:15pm Name of Medical Power of White Mixing Operator SRIRAM July 31, 2024 6:15pm Advance Directive Response Recorded Date/ Time Living Will Yes July 23 8:43pm Do you have a Healthcare Power of White Mixing Operator? Yes July 23, 2024 8:43pm Name of Medical Power of White Mixing Operator ? July 23, 2024 8:43pm Living Will No August 14, 2024 12:54pm Do you have a Healthcare Power of White Mixing Operator? No August 14, 2024 12:54pm Living Will No September 15, 2024 4:31am Do you have a Healthcare Power of White Mixing Operator? Yes September 15, 2024 4:31am Name of Medical Power of White Mixing Operator sriram--sister September 15, 2024 4:31am Living Will No July 18 11:13am Do you have a Healthcare Power of White Mixing Operator? Yes July 18, 2024 11:13am Name of Medical Power of White Mixing Operator SRIRAM ALVARES July 18, 2024 11:13am Living Will Yes July 31, 2024 6:15pm Do you have a Healthcare Power of White Mixing Operator? Yes July 31, 2024 6:15pm Name of Medical Power of White Mixing Operator SRIRAM July 31, 2024 6:15pm Reason for Referral Status Reason Specialty Diagnoses / Procedures Referred By Contact Referred To Contact Authorized Physical Medicin e and Rehabilitation Diagnoses Chronic left hip pain Bambi Huynh MD [address] [place] [address] Sanjay Reyes, DO [address] [place] [id number] Status Reason Specialty Diagnoses / Procedures Referred By Contact Referred To Contact Authorized Physical Therapy / Rehabilitation Diagnoses Hip pain, bilateral Bambi Huynh MD [address] [facility] [address] [place] [address] [facility] [place] [address] [place] [phone] Specialty Diagnoses / Procedures Referred By Contac t Referred To Contact Radiology Diagnoses Post-menopause Procedures XR Bone Density DEXA Axial Ying Quispe, DO [address] [place] [address] Referral ID Status Reason Start Date Expiration Date V isits Requested Visits Authorized [id number] Authorized 11/18/2021 11/18/2022 1 1 Specialty Diagnoses / Procedures Referred By Contac t Referred To Contact Radiology Diagnoses Encounter for screening mammogram for malignant neoplasm of breast Procedures Mammography Screening Jose Bilateral Ying Quispe DO [address] [place] [address] Referral ID Status Reason Start Date Expiration Date V isits Requested Visits Authorized [id number] Authorized 11/18/2021 11/18/2022 1 1 Specialty Diagnoses / Procedures Referred By Contac t Referred To Contact Hematology and Oncology Diagnoses Acute deep vein thrombosis (DVT) of axillary vein of left upper extremity (HCC) Ying Quispe, DO [address] [place] [phone] Lita Gu MD [address] [place] [phone] Referral ID Status Reason Start Date Expiration Date V isits Requested Visits Authorized [id number] Authorized 06/27/2022 06/27/2023 1 1 Specialty Diagnoses / Procedures Referred By Contac t Referred To Contact Radiology Diagnoses Acute deep vein thrombosis (DVT) of axillary vein of left upper extremity (HCC) Current smoker Cigarette smoker Screening for malignant neoplasm of respiratory organ Procedures CT Lung Cancer Screening Lita Gu MD [address] [facility] [place] [phone] Referral ID Status Reason Start Date Expiration Date V isits Requested Visits Authorized [id number] New Request 09/14/2022 09/14/2023 1 1 Specialty Diagnoses / Procedures Referred By Contac t Referred To Contact Radiology Diagnoses History of deep venous thrombosis Current smoker Transaminitis Factor V Leiden mutation (HCC) Lymphadenopathy Decreased muscle strength Lung nodule seen on imaging study Procedures MR Brain With And Without Contrast Lita uG MD [address] [place] [phone] Referral ID Status Reason Start Date Expiration Date V isits Requested Visits Authorized [id number] New Request 10/18/2022 10/18/2023 1 1 Specialty Diagnoses / Procedures Referred By Contac t Referred To Contact Radiology Diagnoses History of deep venous thrombosis Current smoker Transaminitis Factor V Leiden mutation (HCC) Lymphadenopathy Decreased muscle strength Lung nodule seen on imaging study Procedures PET Tumor Imaging With CT Skull To Thigh Lita Gu MD [address] [facility] [place] [phone] Referral ID Status Reason Start Date Expiration Date V isits Requested Visits Authorized [id number] New Request 10/18/2022 10/18/2023 4 4 Specialty Diagnoses / Procedures Referred By Contac t Referred To Contact Neurology Diagnoses History of deep venous thrombosis Current smoker Transaminitis Factor V Leiden mutation (HCC) Lymphadenopathy Decreased muscle strength Lung nodule seen on imaging study Lita Gu MD [address] [place] [address] [facility] Neurology Stuart Alanis [facility] Medical Office Building, [address] [place] [address] Referral ID Status Reason Start Date Expiration Date Visits Requested Visits Authorized [id number] Authorized Specialty Services Required/Pat ient's Best Interest 09/27/2022 09/27/2023 1 1 Specialty Diagnoses / Procedures Referred By Joanne mercedes Referred To Contact Radiology Diagnoses History of deep venous thrombosis Lymphadenopathy Axillary lymphadenopathy Procedures CT Biopsy Lymph Node Lita Gu MD [address] [place] [address] Referral ID Status Reason Start Date Expiration Date V isits Requested Visits Authorized [id number] New Request 11/08/2022 11/08/2023 1 1 Specialty Diagnoses / Procedures Referred By Contact Referred To Contact Interventional Radiology Diagnoses History of deep venous thrombosis Lymphadenopathy Axillary lymphadenopathy Lita Gu MD [address] [place] [address] [place] [address] Referral ID Status Reason Start Date Expiration Date Visits Requested Visits Authorized [id number] Authorized Specialty Services Required/Pat ient's Best Interest 10/25/2022 10/25/2023 1 1 Specialty Diagnoses / Procedures Referred By Contact Referred To Contact Anticoagulation Monitoring Diagnoses History of deep venous thrombosis Reactive lymphadenopathy Factor V Leiden mutation (HCC) Lita Gu MD [address] [place] [address] [place] [address] Referral ID Status Reason Start Date Expiration Date Visits Requested Visits Authorized [id number] Authorized Specialty Services Required/Pat ariadnent's Best Interest 12/12/2022 02/26/[phone] Scheduling Instructions The Anticoagulation Clinic Staff will contact eligible referred patients within two business days to schedule their first appointment. The referring physician will be notified of this appointment and will maintain responsibility for anticoagulation monitoring of their patient until that date. Referral ID Status Reason Start Date Expiration Date V isits Requested Visits Authorized [id number] Authorized 02/08/2023 02/08/2024 1 1 Specialty Diagnoses / Procedures Referred By Contac t Referred To Contact Cardiology Diagnoses Right-sided low back pain with right-sided sciatica, unspecified chronicity Procedures Segmental Doppler Lower Extremity Arterial Yfn Puckett Jr., DPM [address] [place] [address] [facility] [address] Marshall [address] [facility] [place] [phone] Referral ID Status Reason Start Date Expiration Date V isits Requested Visits Authorized [id number] Authorized 07/04/2023 07/03/2024 1 1 Specialty Diagnoses / Procedures Referred By Contac t Referred To Contact Neurosurgery Diagnoses Lumbosacral radiculopathy Yfn Puckett Jr., DPM [address] [place] [address] Nenita Khan MD [address] [place] [phone] Referral ID Status Reason Start Date Expiration Date V isits Requested Visits Authorized [id number] Authorized 08/01/2023 07/31/2024 1 1 Specialty Diagnoses / Procedures Referred By Contac t Referred To Contact Radiology Diagnoses Lumbosacral radiculopathy Weakness of right lower extremity Paresthesias Procedures MR Lumbar Spine Without Contrast Theresa Boykin PA-C [address] [place] [address] Referral ID Status Reason Start Date Expiration Date V isits Requested Visits Authorized [id number] New Request 08/24/2023 08/23/2024 1 1 Specialty Diagnoses / Procedures Referred By Contac t Referred To Contact Neurology Diagnoses Weakness of right lower extremity Paresthesias Theresa Boykin PA-C [address] [facility] [address] [place] [phone] Referral ID Status Reason Start Date Expiration Date V isits Requested Visits Authorized [id number] Authorized 08/24/2023 08/23/2024 1 1 Specialty Diagnoses / Procedures Referred By Contac t Referred To Contact Cardiology Diagnoses Ruptured abdominal aortic aneurysm (AAA), unspecified part (HCC) Procedures Ultrasound renal artery duplex, complete Tylor Kruger MD 37[address] [facility] [address] [place] [phone] Referral ID Status Reason Start Date Expiration Date V isits Requested Visits Authorized [id number] Authorized 11/11/2023 11/10/2024 1 1 Specialty Diagnoses / Procedures Referred By Contac t Referred To Contact Home Health Services Diagnoses Hypertension, unspecified type Orthostatic hypotension TUTU (acute kidney injury) (HCC) Debility Ruptured abdominal aortic aneurysm (AAA), unspecified part (HCC) Aftercare following surgery of the circulatory system Ying Quispe DO [address] [place] [address] [phone] Referral ID Status Reason Start Date Expiration Date V isits Requested Visits Authorized [id number] Authorized 11/02/2023 11/01/2024 1 1 Scheduling Instructions Pt must make office appt any with PCP Ying Quispe DO Specialty Diagnoses / Procedures Referred By Contac t Referred To Contact Radiology Diagnoses 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) PVD (peripheral vascular disease) (HCC) Procedures CT Angiogram Abdominal Aorta With Lower Extremity Tylor Kruger MD [address] [address] Referral ID Status Reason Start Date Expiration Date V isits Requested Visits Authorized [id number] New Request 11/18/2023 11/17/2024 1 1 Specialty Diagnoses / Procedures Referred By Contac t Referred To Contact Wound Care Diagnoses PVD (peripheral vascular disease) (HCC) Tylor Kruger MD 3705 [facility] [address] [place] [address] Op Wound Care [address] [place] [phone] Referral ID Status Reason Start Date Expiration Date Visits Requested Visits Authorized [id number] Authorized Specialty Services Required/Pat ient's Best Interest 11/21/2023 11/20/2024 1 1 Specialty Diagnoses / Procedures Referred By Contac t Referred To Contact Cardiology Diagnoses PVD (peripheral vascular disease) (HCC) Ischemia of toe Procedures US Doppler ankle/brachial index Abigail Estrella, EUEGNE [address] [place] [address] [place] [address] Referral ID Status Reason Start Date Expiration Date V isits Requested Visits Authorized [id number] Authorized 11/22/2023 11/21/2024 1 1 Specialty Diagnoses / Procedures Referred By Contac t Referred To Contact Cardiology Diagnoses 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) Procedures US Abdominal Aortic Aneurysm Duplex (AAA) Sarath Rey MD [address] [place] [address] Referral ID Status Reason Start Date Expiration Date V isits Requested Visits Authorized [id number] Authorized 12/26/2023 12/25/2024 1 1 Specialty Diagnoses / Procedures Referred By Contac t Referred To Contact Cardiology Diagnoses Renal insufficiency Procedures Ultrasound renal artery stenosis hypertension limited Sarath Rey MD [address] [place] [address] Referral ID Status Reason Start Date Expiration Date V isits Requested Visits Authorized [id number] Authorized 12/26/2023 12/25/2024 1 1 Specialty Diagnoses / Procedures Referred By Joanne t Referred To Contact Nephrology Diagnoses Renal insufficiency Sarath Rey MD [address] [place] [address] Yisel Paiz MD [address] [place] [address] Referral ID Status Reason Start Date Expiration Date Visits Requested Visits Authorized [id number] Authorized Specialty Services Required/Pat ient's Best Interest 12/26/2023 12/25/2024 1 1 Specialty Diagnoses / Procedures Referred By Joanne mercedes Referred To Contact Radiology Diagnoses 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) Postoperative leak Procedures CT Angiogram Chest Abdomen Pelvis Sarath Rey MD [address] [place] [address] Referral ID Status Reason Start Date Expiration Date V isits Requested Visits Authorized [id number] New Request 01/05/2024 01/04/2025 1 1 History of Present Illness * Bambi Huynh MD - 2018 8:19 AM EST [facility] [address] [place], [place] [address] [place] 1960 [id number] HPI: 58-year-old female with hypothyroidism, hyperlipidemia, chronic [...] understand their medications Are you taking any xjvw-cwn-bwuwmbt medications or supplements? Patient Response: OTC Multivitamins and [place] Since last being seen in this office, have you seen another healthcare provider? Patient Response: Yes. If yes, where did you see this provider? Dentist in this encounter* Bambi Huynh MD - 09/14/2018 1:22 PM EDT [facility] [address] [facility] [place] [address] [place] [phone] Scott Stringererd 1960 [id number] HPI: 58-year-old female added to the schedule [...] appendicitis of course. Doubt focal colitis. Consider CORRUGATED SHEET MATERIAL SHEETER source but suspicion low forPID. Ovarian cyst [...] understand their medications Are you taking any yeqc-ewp-avoyqbq medications or supplements? Patient Response: OTC Multivitamins Since last being seen in this office, have you seen another healthcare provider? Patient Response: No documented in this encounter* Татьняа Jenkins MD - 09/15/2018 9:47 AM EDT [facility] PATIENT: Scott Obregon DATE / TIME: 09/15/18 9:48 AM POS: [...] Jenkins MD - 10/12/2018 3:00 PM EDT [facility] PATIENT: Scott Obregon DATE / TIME: 10/12/18 3:47 PM POS: [...] PATHOLOGY: Case Report Surgical Pathology Report Case: [id number] Authorizing Provider: Татьяна Jenkins MD Collected: 09/14/2018 10:48 PM Ordering Location: [facility] Periop Received: 09/17/2018 10:42 AM Pathologist: Jaron [...] Serial sections demonstrate a thickened appendiceal wall. Licensed Midwife sections of appendix are submitted in2 cassettes. JF;lat Gross examination performed at: [facility] - [address] [place] [address] Microscopic Description Microscopic examination is performed. ASSESSMENT: The patient is a 58-year-old female status post laparoscopic appendectomy 09/14/2018 PLAN: The patient is recovering well. Follow-up as needed documented in this encounter* Mendez Roy MD - 11/07/2018 7:38 AM EDT Dictation on: 11/07/2018 7:38 AM by: MENDEZ ROY [[id number]] documented in this encounter* Leanne Gomes, INSULATION AND FLOORING ASSEMBLER - 04/17/2019 5:30 PM EST [facility] TREATMENT NOTE Today's [...] Treatments: Physical Therapy Exercise Log - 04/17/19 0447 OTHER Precautions/Contraindications [phone] Notes Supervising PT Fuad 8 Therapeutic Exercise (15039) Intervention SciFit L2, 5 minutes Parameters PT [...] Visit: cont Leanne Gomes PTA STATE LICENSE, [id number] documented in this encounter* Oh Crockett, YEVGENIY - 04/24/2019 1:45 PM EST [facility] DAILY TREATMENT NOTE Today's [...] Treatments: Physical Therapy Exercise Log - 04/24/19 1347 OTHER Notes Supervising PT Fuad 8 Therapeutic Exercise (17185) Intervention SciFit L2, 5 minutes Parameters PT [...] Cont POC Oh Crockett PTA STATE LICENSE, [id number] documented in this encounter* Fuad Pisano, PT - 05/01/2019 5:30 PM EST [facility] DAILY TREATMENT NOTE Today's [...] Treatments: Physical Therapy Exercise Log - 05/01/19 2304 OTHER Notes Supervising PT Fuad Krystin Therapeutic Exercise (72025) Intervention SciFit L2, 5 minutes Parameters PT [...] Progress towards goals as expected. [facility] to [facility] Fuad Pisano PT STATE LICENSE, [id number] documented in this encounter* Rebeca Kaur CNP - 12/06/2019 11:10 AM EDT Patient Name: [facility] Location: Scott Obregon [address] [place] [id number] Date Of : Date Of Visit: 1960 12/06/2019 MRN# Provider: [id number] Rebeca Kaur CNP Chief Complaint Patient presents [...] Gets together: Three times a week Attends rastafarian service: Not on file Active member of [...] nursing note reviewed. Exam conducted with a counter person present (Dara SINGER). Constitutional: General: She is not in acute distress. Appearance: Normal appearance. She is well-developed. She is not ill-appearing, toxic-appearing or diaphoretic. HENT: Head: Normocephalic and atraumatic. Right Ear: Tympanic membrane, ear canal and external ear normal. Left Ear: Tympanic membrane, ear canal and external ear normal. Mouth/Throat: Lips: [place]. Mouth: Mucous membranes are moist. Pharynx: Uvula [...] include drinking lots of fluids and taking vqyx-ppj-edaoevu pain medicine. You will probably feel better [...] amount of fluids you drink. Take an cnjf-nxc-dxhaonw pain medicine, such as acetaminophen (Tylenol), ibuprofen (Advil, Motrin),or naproxen (Aleve). Read and follow all instructions on the label. Before you use cough and cold medicines, check the label. These medicines may not be safe for youngchildren or for people with certain health problems. Be careful when taking ekrw-brt-ibqqdid cold or flu medicines and Tylenol at [...] good. When should you call for help? [id number] anytime you think you may need emergency [...] Log into your personal health record on [email or web address] and enter K520 in the Education box to learn more about Upper Respiratory Infection (Cold): Care Instructions. Current as of: July 22, 2019 Content Version: 12. [employer]. Care instructions adapted under license by your healthcare professional. If you have questions about a medical condition or this instruction, always ask your healthcare professional. [employer] disclaims any warranty or liability for your use of this information. Coronavirus (COVID-19): Care Instructions Overview The coronavirus disease (COVID-19) is caused by a virus. Symptoms may include a fever, a cough, andshortness of breath. It mainly spreads cyqedb-jj-spgyxz through droplets from coughing and sneezing. The [...] water aren't available, use an alcohol-based hand patient safety coordinator. Don't share personal household items. These include bedding, towels, cups and glasses, and eating utensils. Wash laundry in the warmest water allowed for the fabric type, and dry it completely.It's okay to wash other people's laundry with yours. Clean and disinfect your home every day. Use household spring inspector and disinfectant wipes or sprays. Take special care to clean things that you grab with your hands. These include doorknobs, remote controls, phones, and handles on your refrigerator and microwave. And don't forget countertops, tabletops, bathrooms, and computer keyboards. When should you call for help? [id number] anytime you think you may need emergency [...] of: October 25, 2019 Content Version: 12.5 [employer]. Care instructions adapted under license by your healthcare professional. If you have questions about a medical condition or this instruction, always ask your healthcare professional. [employer] disclaims any warranty or liability for [...] Log into your personal health record on [email or web address] and enter O319 in the Education box to learn more about Learning About Benefits From Quitting Smoking. Current as of: August 08, 2019 Content Version: 12.5 [employer]. Care instructions adapted under license by your healthcare professional. If you have questions about a medical condition or this instruction, always ask your healthcare professional. [employer] disclaims any warranty or liability for [...] - 12/06/2019 11:10 AM EDT Patient Name: [facility] Location: [place] [address] [place] [id number] Date Of : Date Of Visit: 1960 12/06/2019 MRN# Provider: [id number] Rebeca Kaur CNP Chief Complaint Patient presents [...] Gets together: Three times a week Attends rastafarian service: Not on file Active member of [...] nursing note reviewed. Exam conducted with a counter person present (Dara SINGER). Constitutional: General: She is not in acute distress. Appearance: Normal appearance. She is well-developed. She is not ill-appearing, toxic-appearing or diaphoretic. HENT: Head: Normocephalic and atraumatic. Right Ear: Tympanic membrane, ear canal and external ear normal. Left Ear: Tympanic membrane, ear canal and external ear normal. Mouth/Throat: Lips: [place]. Mouth: Mucous membranes are moist. Pharynx: Uvula [...] include drinking lots of fluids and taking bjxt-kvd-nillvkk pain medicine. You will probably feel better [...] amount of fluids you drink. Take an gsss-afz-poypwnn pain medicine, such as acetaminophen (Tylenol), ibuprofen (Advil, Motrin),or naproxen (Aleve). Read and follow all instructions on the label. Before you use cough and cold medicines, check the label. These medicines may not be safe for youngchildren or for people with certain health problems. Be careful when taking qeuz-xwt-kirhzvb cold or flu medicines and Tylenol at [...] good. When should you call for help? [id number] anytime you think you may need emergency [...] Log into your personal health record on [email or web address] and enter K520 in the Education box to learn more about Upper Respiratory Infection (Cold): Care Instructions. Current as of: July 22, 2019 Content Version: 12.5 [employer]. Care instructions adapted under license by your healthcare professional. If you have questions about a medical condition or this instruction, always ask your healthcare professional. [employer] disclaims any warranty or liability for your use of this information. Coronavirus (COVID-19): Care Instructions Overview The coronavirus disease (COVID-19) is caused by a virus. Symptoms may include a fever, a cough, andshortness of breath. It mainly spreads cvmmul-ox-ezlmzk through droplets from coughing and sneezing. The [...] water aren't available, use an alcohol-based hand patient safety coordinator. Don't share personal household items. These include bedding, towels, cups and glasses, and eating utensils. Wash laundry in the warmest water allowed for the fabric type, and dry it completely.It's okay to wash other people's laundry with yours. Clean and disinfect your home every day. Use household spring inspector and disinfectant wipes or sprays. Take special care to clean things that you grab with your hands. These include doorknobs, remote controls, phones, and handles on your refrigerator and microwave. And don't forget countertops, tabletops, bathrooms, and computer keyboards. When should you call for help? [id number] anytime you think you may need emergency [...] of: October 25, 2019 Content Version: 12.5 [employer]. Care instructions adapted under license by your healthcare professional. If you have questions about a medical condition or this instruction, always ask your healthcare professional. [employer] disclaims any warranty or liability for [...] Log into your personal health record on [email or web address] and enter O319 in the Education box to learn more about Learning About Benefits From Quitting Smoking. Current as of: August 08, 2019 Content Version: 12.5 [employer]. Care instructions adapted under license by your healthcare professional. If you have questions about a medical condition or this instruction, always ask your healthcare professional. [employer] disclaims any warranty or liability for [...] Pisano, PT - 04/08/2019 5:30 PM EST [facility] Evaluation Today's Date 04/09/2019 [...] to walk 7 miles daily and goto [employer]. Now she isn't able to do any of this. 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 Previous Treatment for this condition: Injections [...] and get back to exercise Social History Christianity, social, or cultural considerations to be made [...] Treatments: Physical Therapy Exercise Log - 04/09/19 0721 OTHER Notes Supervising PT Fuad Mcclelland Therapeutic Exercise (30902) Intervention SciFit Parameters PT performed STM glutes [...] functional abilities Fuad Pisano PT STATE LICENSE, [id number] documented in this encounter* Tisha Do PTA - 04/22/2019 5:30 PM EST [facility] DAILY TREATMENT NOTE Today's [...] Treatments: Physical Therapy Exercise Log - 04/22/19 6436 OTHER Precautions/Contraindications 535-6:18 concurrent care Notes Supervising PT Fuad 8 Therapeutic Exercise (54466) Intervention SciFit L2, 5 minutes Parameters PT [...] as able. Tisha Do PTA STATE LICENSE, [id number] documented in this encounter* Bambi Huynh MD [...] cyst versusother. She plans to attend either [facility] or [facility]. documented in this encounter* Bambi Huynh MD - 01/14/2019 4:29 PM EDT [facility] [address] [place], [place] [address] [place] 1960 [id number] HPI: 58-year-old female with hypothyroidism, hyperlipidemia, bilateral [...] Gets together: Three times a week Attends rastafarian service: Not on file Active member of [...] MD documented in this encounter* Tisha Do, INSULATION AND FLOORING ASSEMBLER - 04/15/2019 5:30 PM EST [facility] DAILY TREATMENT NOTE Today's [...] Treatments: Physical Therapy Exercise Log - 04/15/19 8282 OTHER Precautions/Contraindications 535-6:17 concurrent Notes Supervising PT Fuad 8 Therapeutic Exercise (38888) Intervention SciFit L2, 5 minutes NT Parameters [...] per POC. Tisha Do PTA STATE LICENSE, [id number] documented in this encounter* Tisha Do PTA - 04/29/2019 5:30 PM EST [facility] DAILY TREATMENT NOTE Today's [...] Treatments: Physical Therapy Exercise Log - 04/29/19 9818 OTHER Notes Supervising PT Fuad Krystin Vitals 5:35-6:25 Therapeutic Exercise (64219) Intervention SciFit L2, 5 minutes Parameters PT [...] a difference. Tisha Do PTA STATE LICENSE, [id number] documented in this encounter* Bambi Huynh MD - 03/25/2019 4:39 PM EDT [facility] [address] [place], [place] [address] [place] 1960 [id number] HPI: Return visit. Patient with hypothyroidism. Has [...] [place] Date of : 1960 Site: [facility] Family Provider: Bambi Huynh MD Admit Date: [...] Physician(s) Family Provider: Bambi Huynh MD, Address: [facility] [address] / [facility] [address] Follow Up: No follow-up provider specified. Additional [...] Log into your personal health record on [email or web address] and enter J277 in the Education box to learn more about Learning About Appendectomy. Current as of: April 04, 2018 Content Version: 12.0 [id number] [employer]. Care instructions adapted under license by your healthcare professional. If you have questions about a medical condition or this instruction, always ask your healthcare professional. [employer] disclaims any warranty or liability for your use of this information. documented in this encounter Instructions * Patient Instructions* Rebeca Kaur, EUGENE - 12/06/2019 11:46 AM EDT Upper Respiratory [...] include drinking lots of fluids and taking ergs-hax-kbtzthd pain medicine. You will probably feel better [...] amount of fluids you drink. Take an wtrv-glz-cbizhto pain medicine, such as acetaminophen (Tylenol), ibuprofen (Advil, Motrin),or naproxen (Aleve). Read and follow all instructions on the label. Before you use cough and cold medicines, check the label. These medicines may not be safe for youngchildren or for people with certain health problems. Be careful when taking brxf-zvi-xekhjti cold or flu medicines and Tylenol at [...] good. When should you call for help? [id number] anytime you think you may need emergency [...] Log into your personal health record on [email or web address] and enter K520 in the Education box to learn more about Upper Respiratory Infection (Cold): Care Instructions. Current as of: July 22, 2019 Content Version: 12.5 [employer]. Care instructions adapted under license by your healthcare professional. If you have questions about a medical condition or this instruction, always ask your healthcare professional. [employer] disclaims any warranty or liability for your use of this information. Coronavirus (COVID-19): Care Instructions Overview The coronavirus disease (COVID-19) is caused by a virus. Symptoms may include a fever, a cough, andshortness of breath. It mainly spreads mnzgrj-bw-imwpsg through droplets from coughing and sneezing. The [...] water aren't available, use an alcohol-based hand patient safety coordinator. Don't share personal household items. These include bedding, towels, cups and glasses, and eating utensils. Wash laundry in the warmest water allowed for the fabric type, and dry it completely.It's okay to wash other people's laundry with yours. Clean and disinfect your home every day. Use household spring inspector and disinfectant wipes or sprays. Take special care to clean things that you grab with your hands. These include doorknobs, remote controls, phones, and handles on your refrigerator and microwave. And don't forget countertops, tabletops, bathrooms, and computer keyboards. When should you call for help? [id number] anytime you think you may need emergency [...] of: October 25, 2019 Content Version: 12.5 [employer]. Care instructions adapted under license by your healthcare professional. If you have questions about a medical condition or this instruction, always ask your healthcare professional. [employer] disclaims any warranty or liability for [...] Log into your personal health record on [email or web address] and enter O319 in the Education box to learn more about Learning About Benefits From Quitting Smoking. Current as of: August 08, 2019 Content Version: 12.5 8099-6183 [employer]. Care instructions adapted under license by your healthcare professional. If you have questions about a medical condition or this instruction, always ask your healthcare professional. [employer] disclaims any warranty or liability for [...] include drinking lots of fluids and taking axip-roi-ipbndex pain medicine. You will probably feel better [...] amount of fluids you drink. Take an eppp-lyr-fqctztc pain medicine, such as acetaminophen (Tylenol), ibuprofen (Advil, Motrin),or naproxen (Aleve). Read and follow all instructions on the label. Before you use cough and cold medicines, check the label. These medicines may not be safe for youngchildren or for people with certain health problems. Be careful when taking yfsc-heg-ynojclk cold or flu medicines and Tylenol at [...] good. When should you call for help? [id number] anytime you think you may need emergency [...] Log into your personal health record on [email or web address] and enter K520 in the Education box to learn more about Upper Respiratory Infection (Cold): Care Instructions. Current as of: July 22, 2019 Content Version: 12.5 [employer]. Care instructions adapted under license by your healthcare professional. If you have questions about a medical condition or this instruction, always ask your healthcare professional. [employer] disclaims any warranty or liability for your use of this information. Coronavirus (COVID-19): Care Instructions Overview The coronavirus disease (COVID-19) is caused by a virus. Symptoms may include a fever, a cough, andshortness of breath. It mainly spreads irakqf-hh-tqrjhg through droplets from coughing and sneezing. The [...] water aren't available, use an alcohol-based hand patient safety coordinator. Don't share personal household items. These include bedding, towels, cups and glasses, and eating utensils. Wash laundry in the warmest water allowed for the fabric type, and dry it completely.It's okay to wash other people's laundry with yours. Clean and disinfect your home every day. Use household spring inspector and disinfectant wipes or sprays. Take special care to clean things that you grab with your hands. These include doorknobs, remote controls, phones, and handles on your refrigerator and microwave. And don't forget countertops, tabletops, bathrooms, and computer keyboards. When should you call for help? [id number] anytime you think you may need emergency [...] of: October 25, 2019 Content Version: 12.5 [employer]. Care instructions adapted under license by your healthcare professional. If you have questions about a medical condition or this instruction, always ask your healthcare professional. [employer] disclaims any warranty or liability for [...] Log into your personal health record on [email or web address] and enter O319 in the Education box to learn more about Learning About Benefits From Quitting Smoking. Current as of: August 08, 2019 Content Version: 12.5 [employer]. Care instructions adapted under license by your healthcare professional. If you have questions about a medical condition or this instruction, always ask your healthcare professional. [employer] disclaims any warranty or liability for [...] Reason for Visit Chief Complaint Admit Date [facility] LAB WORK April 17 4:00am N179 April 17, 2024 2:38pm [facility] WORK April 24 4:00am PEG TUBE April 30, 2024 1 :29pm [facility] WORK May 27 5:00am LAB WORK June 03, 2024 5: 00am PAD June 05, 2024 2: 56pm LAB WORK June 06, 2024 5: 10am LABWORK June 07, 2024 5 :00am LABWORK June 21, 2024 1 1:00pm [facility] LAB WORK June 25, 2024 5:00am weight [...] 31 3:42pm Acute upper gastrointestinal bleeding [facility] 2024 3:42pm Anemia July 31, 2024 [...] 2024 11: 52am Chief Complaint Admit Date [facility] LAB WORK April 24 4:00am PEG TUBE April 30, 2024 1 :29pm [facility] WORK May 27 5:00am LAB WORK June 03, 2024 5: 00am PAD June 05, 2024 2: 56pm LAB WORK June 06, 2024 5: 10am LABWORK June 07, 2024 5 :00am LABWORK June 21, 2024 1 1:00pm [facility] LAB WORK June 25, 2024 5:00am weight [...] 31 3:42pm Acute upper gastrointestinal bleeding [facility] 2024 3:42pm Anemia July 31, 2024 [...] 2024 11: 52am Chief Complaint Admit Date [facility] LAB WORK May 27 5:00am LAB WORK June 03, 2024 5: 00am PAD June 05, 2024 2: 56pm LAB WORK June 06, 2024 5: 10am LABWORK June 07, 2024 5 :00am LABWORK June 21, 2024 1 1:00pm [facility] LAB WORK June 25, 2024 5:00am weight [...] 31 3:42pm Acute upper gastrointestinal bleeding [facility] 2024 3:42pm Anemia July 31, 2024 [...] 14, 2024 11:52am Chief Complaint Admit Date [facility] LAB WORK May 27 5:00am LAB WORK June 03, 2024 5: 00am PAD June 05, 2024 2: 56pm LAB WORK June 06, 2024 5: 10am LABWORK June 07, 2024 5 :00am LABWORK June 21, 2024 1 1:00pm [facility] LAB WORK June 25, 2024 5:00am weight [...] GI BLEED August 13, 2024 10: 13am [facility] LAB WORK August 14, 2024 5 :00am ANASARCA, SOB August 14, 2024 11: 52am ANASARCA, SOB August 14, 2024 12: 21pm ANASARCA, SOB August 15, 2024 8:1 1am BILATERAL EFFUSION August 15, 2024 9:0 0am ANASARCA, SOB August 15, 2024 9:0 9am ANASARCA, SOB August 16, 2024 3:2 2pm ANASARCA, SOB August 17, 2024 9:1 6am [facility] LAB WORK August 26, 2024 4 :00am 2 units PRBC August 31, 2024 9:01 am Chief Complaint Admit Date [facility] LAB WORK May 27 5:00am LAB WORK June 03, 2024 5: 00am PAD June 05, 2024 2: 56pm LAB WORK June 06, 2024 5: 10am LABWORK June 07, 2024 5 :00am LABWORK June 21, 2024 1 1:00pm [facility] LAB WORK June 25, 2024 5:00am weight [...] GI BLEED August 13, 2024 10: 13am [facility] LAB WORK August 14, 2024 5 :00am ANASARCA, SOB August 14, 2024 11: 52am ANASARCA, SOB August 14, 2024 12: 21pm ANASARCA, SOB August 15, 2024 8:1 1am BILATERAL EFFUSION August 15, 2024 9:0 0am ANASARCA, SOB August 15, 2024 9:0 9am ANASARCA, SOB August 16, 2024 3:2 2pm ANASARCA, SOB August 17, 2024 9:1 6am [facility] LAB WORK August 22, 2024 5 :00am [facility] LAB WORK August 26, 2024 4 :00am LABWORK August 28, 2024 5:00 am 2 units PRBC August 31, 2024 9:01 am Chief Complaint Admit Date [facility] LAB WORK May 27 5:00am LAB WORK June 03, 2024 5: 00am PAD June 05, 2024 2: 56pm LAB WORK June 06, 2024 5: 10am LABWORK June 07, 2024 5 :00am LABWORK June 21, 2024 1 1:00pm [facility] LAB WORK June 25, 2024 5:00am weight [...] GI BLEED August 13, 2024 10: 13am [facility] LAB WORK August 14, 2024 5 :00am ANASARCA, SOB August 14, 2024 11: 52am ANASARCA, SOB August 14, 2024 12: 21pm ANASARCA, SOB August 15, 2024 8:1 1am BILATERAL EFFUSION August 15, 2024 9:0 0am ANASARCA, SOB August 15, 2024 9:0 9am ANASARCA, SOB August 16, 2024 3:2 2pm ANASARCA, SOB August 17, 2024 9:1 6am [facility] LAB WORK August 22, 2024 5 :00am [facility] LAB WORK August 26, 2024 4 :00am LABWORK August 28, 2024 5:00 am 2 units PRBC August 31, 2024 9:01 am sob September 15, 2024 4:2 2am Chief Complaint Admit Date LABWORK June 21, 2024 1 1:00pm [facility] LAB WORK June 25, 2024 5:00am weight [...] GI BLEED August 13, 2024 10: 13am [facility] LAB WORK August 14, 2024 5 :00am [...] ANASARCA, SOB August 17, 2024 9:1 6am [facility] LAB WORK August 22, 2024 5 :00am [facility] LAB WORK August 26, 2024 4 :00am LABWORK August 28, 2024 5:00 am 2 units PRBC August 31, 2024 9:01 am LABWORK September 02, 2024 5:00 am sob September 15, 2024 4:2 2am LABWORK September 18, 2024 5:0 0am Reason for Visit Admit Date End stage renal disease July 23, 025 5:23pm Chronic anemia July 23, 2024 5:23pm Leukocytosis July 23, 2024 5:23pm Open abdominal wall wound July 23, 2024 5:23pm Unspecified severe protein-calorie malnu trition July 23, 2024 5:23pm ABLA (acute blood loss anemia) July 3:42pm Abnormal CT of the abdomen July 31 3:42pm Acute upper gastrointestinal bleeding [facility] 2024 3:42pm Anemia July 31, 2024 [...] Date LABWORK June 21, 2024 1 1:00pm [facility] LAB WORK June 25, 2024 5:00am weight [...] GI BLEED August 13, 2024 10: 13am [facility] LAB WORK August 14, 2024 5 :00am [...] ANASARCA, SOB August 17, 2024 9:1 6am [facility] LAB WORK August 22, 2024 5 :00am [facility] LAB WORK August 26, 2024 4 :00am LABWORK August 28, 2024 5:00 am 2 units PRBC August 31, 2024 9:01 am LABWORK September 02, 2024 5:00 am sob September 15, 2024 4:2 2am [facility] LAB WORK September 16, 2024 7 :45am LABWORK September 18, 2024 5:0 0am Additional Source Comments INFORMATION SOURCE (unrecogn ized section and content) DATE CREATED AUTHOR 11/16/2017 [facility] DATE CREATED AUTHOR AUTHOR'S ORGANIZ ATION [facility] DATE CREATED AUTHOR AUTHOR'S ORGANIZ ATION 10/26/2023 [facility] DATE CREATED AUTHOR AUTHOR'S ORGANIZ ATION 11/02/2023 [facility] CREATED AUTHOR AUTHOR'S ORGANIZ ATION 12/25/2023 [facility] DATE CREATED AUTHOR AUTHOR'S ORGANIZ ATION 01/05/2024 [facility] DATE CREATED AUTHOR AUTHOR'S ORGANIZ ATION 05/15/2024 [facility] DATE CREATED AUTHOR AUTHOR[facility]S ORGANIZ ATION [facility] CREATED AUTHOR AUTHOR[facility]S [facility]IZ ATION [facility] DATE CREATED AUTHOR AUTHOR'S ORGANIZ ATION 11/11/2024 [facility] Reason for Visit (unrecogniz ed section and content) Reason Comments Follow-up 6 months Reason Comments Abdominal Pain RLQ Dysuria Cold Sweats Reason Comments Abdominal Pain Reason Comments Post-op monocyrl and steri s trips Reason Comments Physical Therapy Status Reason Specialty Diagnoses / Procedures Referred By Contact Referred To Contact Authorized Physical Therapy / Rehabilitation Diagnoses Hip pain, bilateral Bambi Huynh MD [facility] [place] [address] [facility] [place] [address] [place] [address] Reason Comments Cough congestion, runny no se, symptoms x 1 week Reason Comments Follow-up 6 months Reason Comments Follow-up Reason Comments Hypothyroidism needs medication ref ills/ hasn't been seen since 2019 Reason Comments Plantar Warts Possible wart right heel. She will dig out then they will grow back. Cyst [facility]. Bumps are hard. [...] Expiration Date Visits Re quested Visits Authorized [id number] 1 1 Reason Comments Medication Refill Reason Comments DVT New consult from Dr. Quispe Specialty Diagnoses / Procedures Referred By Contadriana t Referred To Contact Hematology and Oncology Diagnoses Acute deep vein thrombosis (DVT) of axillary vein of left upper extremity (HCC) Ying Quispe, DO [address] [place] [address] Lita Gu MD [address] [facility] [place] [place] [address] Referral ID Status Reason Start Date Expiration Date Visits Re quested Visits Authorized [id number] Closed 06/27/2022 06/27/2023 1 1 Reason Onset [...] thrombosis Reactive lymphadenopathy Factor V Leiden mutation ([facility]) Lita Gu MD [address] [place] [address] [place] [address] Referral ID Status Reason Start Date Expiration Date Visits Requested Visits Authorized [id number] Pending Review Specialty Services Required/Pat ient's Best [...] Comments Back Pain Ref by srikanth Puckett radiculopathy. Patient reports that he biggest issue is her feet. She is having numbness. Specialty Diagnoses / Procedures Referred By Contac t Referred To Contact Neurosurgery Diagnoses Lumbosacral radiculopathy Yfn Puckett Jr., DPM [address] [place] [address] Nenita Khan MD [facility] [address] [address] Referral ID Status Reason Start Date Expiration Date Visits Re quested Visits Authorized [id number] Closed 08/01/2023 07/31/2024 1 1 Reason Comments Follow-up S/p EVAR, right perry l stenting Specialty Diagnoses / Procedures Referred By Contac t Referred To Contact Referral ID Status Reason Start Date Expiration Date Visits Re quested Visits Authorized [id number] 1 1 Specialty Diagnoses / Procedures Referred By Contact Referred To Contact Anticoagulation Monitoring Diagnoses History of deep venous thrombosis Reactive lymphadenopathy Factor V Leiden mutation ([facility]) Lita Gu MD [address] [place] [address] Caruso [address] [place] [phone] Referral ID Status Reason Start Date Expiration Date V isits Requested Visits Authorized [id number] Pending Review 12/12/2022 02/26/2024 999 999 Reason Comments Follow-up 1 month hospital fol low up s/p Emergent EVAR with renal stenting with Dr. Guerra Reason Onset Date Comments Medication Refill 11/20/2023 Reason Comments Wound Check Specialty Diagnoses / Procedures Referred By Contac t Referred To Contact Wound Care Diagnoses PVD (peripheral vascular disease) ([facility]) Tylor Kruger MD [address] [place] [address] Op Wound Care [address] [place] [address] Referral ID Status Reason Start Date Expiration Date V isits Requested Visits Authorized [id number] Closed Specialty Services Required/Romi ent's Best Interest 11/21/2023 11/20/2024 1 1 Reason Onset Date Comments Medication Refill 12/06/2023 Referral ID Status Reason Start Date Expiration Date V isits Requested Visits Authorized [id number] Pending Review 12/12/2022 04/10/2025 999 999 Reason [...] PT. Karolyn BECERRA, called for transport to [facility], ETA 25 minutes. Gloria, Transfer center, called to advise that alternate transportation has been arranged. Pt updated on status of EMS arrival. JACKIE Castro, called with 90 minute ETA for [facility]. This nurse to try to turnover to [facility] ED PROVIDER NOTE [facility] NAME: Scott Obregon AGE: 58 y.o. : 1960 VISIT DATE: 09/14/2018 CSN: [id number] PCP: Bambi Huynh MD Chief Complaint Patient [...] has been accepted by surgery at [facility]. Patient will be transferred in stable condition. [...] Condition Comment Transfer to Another Facility Scott Obregon to be transferred to [facility] Follow-up Information Follow-up information has not been [...] PT to OR PT from transfer from [place] for surgery Bed: 01 Expected date: 09/14/18 Expected time: 9:22 PM Means of arrival: Comments: TRANSFER documented in this encounter Татьяна Jenkins MD - 09/14/2018 10:26 PM EDT H&P Notes (unrecognized sect ion and content) [facility] SURGICAL HISTORY & PHYSICAL/CONSULTATION [...] year old female who was transferred from [facility] for acute appendicitis. 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 Sadia Phoenix , DO Emergency [...] Start: July 23, 2024 Dr. Remedios Kessler , Other Provider Active Start : July 23, 2024 Dr. Nick Gallegos , Attending Provider Active Start: July 23, 2024 [...] 24, 2024 Dr. Remedios Kessler , DO Attending Provider Active S tart: July 24, 2024 Dr. Remedios Kessler DO Other Provider Active Start : July 24, 2024 Team Status: Active Member Role Status Dates Dr. Ethan Rodriguez MD Primary Care Provider Active Start: July 24, 2024 Dr. Sadia Phoenix , DO Emergency Provider Active S tart: July 24, 2024 Dr. Judd Galvin , Admit Provider Active Star t: July 24, 2024 Dr. Judd Galvin DO Other Provider Active Star t: July 24, 2024 Dr. Angie Torres MD Other Provider Active Start: July 24, 2024 Dr. Remedios Kessler , DO Other Provider Active Start : July 24, 2024 Dr. Nick Gallegos , Attending Provider Active Start: July 24, 2024 Dr. Mar Mead MD Referring Provider Active Start: July 24, 2024 Team Status: Active Member Role Status Dates Dr. Ethan Rodriguez MD Primary Care Provider Active Start: July 25, 2024 Dr. Sadia Phoenix DO Emergency Provider Active S tart: July 25, 2024 Dr. Judd Galvin DO Admit Provider Active Star t: July 25, 2024 Dr. Judd Galvin DO Other Provider Active Star t: July 25, 2024 Dr. Angie Torres MD Other Provider Active Start: July 25, 2024 Dr. Remedios Kessler , Attending Provider Active S tart: July 25, 2024 Dr. Remedios Kessler , Other Provider Active Start : July 25, [...] July 26, 2024 Dr. Remedios Kessler , Attending Provider Active S tart: July 26, 2024 Dr. Remedios Kessler , DO Other Provider Active Start : July 26, 2024 Team Status: Active Member Role Status Dates Dr. Ethan Rodriguez MD Primary Care Provider Active Start: July 26, 2024 Dr. Remus Ungur , DO Emergency Provider Active S tart: July 26, 2024 Dr. Judd Galvin , Admit Provider Active Star t: July 26, [...] Start: July 27, 2024 Dr. Sadia Phoenix DO Emergency Provider Active S tart: July 27, 2024 Dr. Judd Galvin DO Admit Provider Active Star t: July 27, 2024 Dr. Judd Galvin DO Other Provider Active Star t: July 27, 2024 Dr. Angie Torres MD Other Provider Active Start: July 27, 2024 Dr. Remedios Kessler , DO Attending Provider Active S tart: July 27, 2024 Dr. Remedios Kessler DO Other Provider Active Start : July 27, [...] 28, 2024 Dr. Remedios Kessler , DO Attending Provider Active S tart: July 28, 2024 Dr. Remedios Kessler DO Other Provider Active Start : July 28, 2024 Team Status: Active Member Role Status Dates Dr. Ethan Rodriguez MD Primary Care Provider Active Start: July 29, 2024 Dr. Sadia Phoenix DO [...] Active S tart: August 04, 2024 Dr. Naoh Avery MD Emergency Provider Active S tart: [...] art: August 06, 2024 Dr. Nick Gallegos , Attending Provider Active Start: August 06, 2024 [...] Provider Active Start: August 08, 2024 Dr. vKng Watkins DO Other Provider Active Start: August [...] art: August 08, 2024 Dr. Nick Gallegos DO Attending Provider Active Start: August 08, 2024 Team Status: Active Member Role Status Dates Dr. Ethan Rodriguez MD Primary Care Provider Active Start: August 09, 2024 Dr. Noah Avery MD Emergency Provider [...] Active S tart: August 11, 2024 Dr. vKng Watkins DO Admit Provider Active Start: August [...] tart: August 12, 2024 Dr. Kvng Watkins , DO Admit Provider Active Start: August 12, 2024 Dr. Kvng Watkins , Other Provider Active Start: August 12, 2024 Dr. Angie Torres MD Other Provider Active Start: August 12, 2024 Dr. Mar Mead MD Other Provider Active St art: August 12, 2024 Dr. Nikolas Magaña MD Attending Provider Active Start: August 12, 2024 Dr. Nikolas Magaña MD Other Provider Active Sta rt: August 12, 2024 Dr. Judd Galvin , Other Provider Active Star t: August 12, 2024 Team Status: Active Member Role Status Dates Dr. Ethan Rodriguez MD Primary Care Provider Active Start: August 13, 2024 Dr. Noah Avery MD Emergency Provider Active S tart: August 13, 2024 Dr. Kvng Watkins , Admit Provider Active Start: August 13, 2024 [...] End: August 17, 2024 Dr. Ciaran Rodrigez , Emergency Provider Activ e Start: August 14, [...] Start: August 14, 2024 Dr. Ciaran Rodrigez , DO Emergency Provider Activ e Start: August [...] Active Member Role Status Dates Dr. Millie Msasey MD Primary Care Provider Active Start: August [...] tart: August 13, 2024 Dr. Kvng Watkins , Admit Provider Active Start: August 13, 2024 [...] Provider Active Star t: August 13, 2024 Flap Maker Relationship Specialty Start Date End Date Bambi Huynh MD [address] [place] [address] [address] [place] [address] PCP - [facility] Provider - [employer] 03/29/18 05/28/50 Ying Quispe, DO [address] [place] [address] PCP - General Family Medicine 05/12/21 Flap Maker Relationship Specialty Start Date End Date Ying Quispe DO [address] [place] [address] PCP - General Family Medicine 05/12/21 Flap Maker Relationship Specialty Start Date End Date iYng Quispe DO [address] [place] [address] PCP - General Family Medicine 05/12/21 Flap Maker Relationship Specialty Start Date End Date Ying Quispe DO [address] [place] [address] PCP - General Family Medicine 05/12/21 Flap Maker Relationship Specialty Start Date End Date Ying Quispe DO [address] [place] [address] PCP - General Family Medicine 05/12/21 Flap Maker Relationship Specialty Start Date End Date Ying Quispe, DO [address] [place] [address] PCP - General Family Medicine 05/12/21 Flap Maker Relationship Specialty Start Date End Date Brittaney Ying Sweeney, DO [address] [place] [address] PCP - General Family Medicine 05/12/21 Ying Quispe, DO [address] [place] [address] PCP - PK Attributed Provider - [facility] 05/29/21 05/28/99 Flap Maker Relationship Specialty Start Date End Date Ying Quispe, DO [address] [place] [address] PCP - General Family Medicine 05/12/21 Ying Quispe, DO [address] [place] [address] PCP - PK Attributed Provider - [facility] 05/29/21 05/28/99 Flap Maker Relationship Specialty Start Date End Date Bambi Huynh MD PCP - General Internal Medicine 06/10/16 04/07/21 Makenzie Bajwa, FRONT OFFICE SUPERVISOR [address] [place] [address] PCP - General Nurse Practitioner 04/08/21 05/11/21 Ying Quispe, DO [address] [place] [address] PCP - General Family Medicine 05/12/21 Ying Quispe, DO [address] [place] [address] PCP - PK Attributed Provider - [employer] 03/29/18 08/25/21 Ying Quispe, DO [address] [place] [address] PCP - PK Attributed Provider - [facility] 05/29/21 05/28/99 Flap Maker Relationship Specialty Start Date End Date Ying Quispe, DO [address] [place] [address] PCP - General Family Medicine 05/12/21 Ying Quispe, DO [address] [place] [address] PCP - PK Attributed Provider - [facility] 05/29/21 05/28/99 Codie Garcia cow tenderGuard Driver 06/13/22 06/13/22 Flap Maker Relationship Specialty Start Date End Date Ying Quispe, DO [address] [place] [address] PCP - General Family Medicine 05/12/21 Ying Quispe, DO [address] [place] [address] PCP - PK Attributed Provider - [facility] 05/29/21 05/28/50 Flap Maker Relationship Specialty Start Date End Date Ying Quispe, DO [address] [place] [address] PCP - General Family Medicine 05/12/21 Ying Quispe, DO [address] [place] [address] PCP - PK Attributed Provider - [facility] 05/29/21 05/28/50 Flap Maker Relationship Specialty Start Date End Date Yign Quispe DO [address] [place] [address] PCP - General Family Medicine 05/12/21 Ying Quispe DO [address] [place] [address] PCP - PK Attributed Provider - [facility] 05/29/21 05/28/50 Flap Maker Relationship Specialty Start Date End Date Ying Quispe DO [address] [place] [address] PCP - General Family Medicine 05/12/21 Ying Quispe DO [address] [place] [address] PCP - PK Attributed Provider - [facility] 05/29/21 05/28/50 Flap Maker Relationship Specialty Start Date End Date Ying Quispe DO [address] [place] [address] PCP - General Family Medicine 05/12/21 Ying Quispe DO [address] [place] [address] PCP - PK Attributed Provider - [facility] 05/29/21 05/28/50 Flap Maker Relationship Specialty Start Date End Date Ying Quispe DO [address] [place] [address] PCP - General Family Medicine 05/12/21 Ying Quispe DO [address] [place] [address] PCP - PK Attributed Provider - [facility] 05/29/21 05/28/50 Flap Maker Relationship Specialty Start Date End Date Ying Quispe DO [address] [place] [address] PCP - General Family Medicine 05/12/21 Ying Quispe DO [address] [place] [address] PCP - PK Attributed Provider - [facility] 05/29/21 05/28/50 Flap Maker Relationship Specialty Start Date End Date Ying Quispe DO [address] [place] [address] PCP - General Family Medicine 05/12/21 Ying Quispe DO [address] [place] [address] PCP - PK Attributed Provider - [facility] 05/29/21 05/28/50 Flap Maker Relationship Specialty Start Date End Date Ying Quispe DO [address] [place] [address] PCP - General Family Medicine 05/12/21 Ying Quispe DO [address] [place] [address] PCP - PK Attributed Provider - [facility] 05/29/21 05/28/50 Flap Maker Relationship Specialty Start Date End Date Ying Quispe DO [address] [place] [address] PCP - General Family Medicine 05/12/21 Ying Quispe DO [address] [place] [address] PCP - PK Attributed Provider - [facility] 05/29/21 05/28/50 Flap Maker Relationship Specialty Start Date End Date Ying Quispe DO [address] [place] [address] PCP - General Family Medicine 05/12/21 Ying Quispe DO [address] [place] [address] PCP - PK Attributed Provider - [facility] 05/29/21 05/28/50 Flap Maker Relationship Specialty Start Date End Date Ying Quispe DO [address] [place] [address] PCP - General Family Medicine 05/12/21 Ying Quispe, DO [address] [place] [address] PCP - PK Attributed Provider - [facility] 05/29/21 05/28/50 Flap Maker Relationship Specialty Start Date End Date Ying Quispe DO [address] [place] [address] PCP - General Family Medicine 05/12/21 Ying Quispe DO [address] [place] [address] PCP - PK Attributed Provider - [facility] 05/29/21 05/28/50 Flap Maker Relationship Specialty Start Date End Date Ying Quispe DO [address] [place] [address] PCP - General Family Medicine 05/12/21 Ying Quispe DO [address] [place] [address] PCP - PK Attributed Provider - [facility] 05/29/21 05/28/50 Flap Maker Relationship Specialty Start Date End Date Ying Quispe DO [address] [place] [address] PCP - General Family Medicine 05/12/21 Ying Quispe DO [address] [place] [address] PCP - PK Attributed Provider - [facility] 05/29/21 05/28/50 Flap Maker Relationship Specialty Start Date End Date Ying Quispe DO [address] [place] [address] PCP - General Family Medicine 05/12/21 Ying Quispe DO [address] [place] [address] PCP - PK Attributed Provider - [facility] 05/29/21 05/28/50 Flap Maker Relationship Specialty Start Date End Date Ying Quispe DO [address] [place] [address] PCP - General Family Medicine 05/12/21 Ying Quispe DO [address] [place] [address] PCP - PK Attributed Provider - [facility] 05/29/21 05/28/50 Lita Gu MD [address] [place] [address] Consulting Physician Hematology/Oncology 04/24/23 Flap Maker Relationship Specialty Start Date End Date Ying Quispe DO [address] [place] [address] PCP - General Family Medicine 05/12/21 Ying Quispe DO [address] [place] [address] PCP - PK Attributed Provider - [facility] 05/29/21 05/28/50 Lita Gu MD [address] [place] [address] Consulting Physician Hematology/Oncology 04/24/23 Flap Maker Relationship Specialty Start Date End Date Ying Quispe DO [address] [place] [address] PCP - General Family Medicine 05/12/21 Ying Quispe DO [address] [place] [address] PCP - PK Attributed Provider - [facility] 05/29/21 05/28/50 Lita Gu MD [address] [place] [address] Consulting Physician Hematology/Oncology 04/24/23 Flap Maker Relationship Specialty Start Date End Date Ying Quispe DO [address] [place] [address] PCP - General Family Medicine 05/12/21 Ying Quispe DO [address] [place] [address] PCP - PK Attributed Provider - [facility] 05/29/21 05/28/50 Lita Gu MD [address] [place] [address] Consulting Physician Hematology/Oncology 04/24/23 Flap Maker Relationship Specialty Start Date End Date Ying Quispe DO [address] [place] [address] PCP - General Family Medicine 05/12/21 Ying Quispe DO [address] [place] [address] PCP - PK Attributed Provider - [facility] 05/29/21 05/28/50 Lita Gu MD [address] [place] [address] Consulting Physician Hematology/Oncology 04/24/23 Flap Maker Relationship Specialty Start Date End Date Ying Quispe DO [address] [place] [address] PCP - General Family Medicine 05/12/21 Ying Quispe DO [address] [place] [address] PCP - PK Attributed Provider - [facility] 05/29/21 05/28/50 Lita Gu MD [address] [place] [address] Consulting Physician Hematology/Oncology 04/24/23 Flap Maker Relationship Specialty Start Date End Date Ying Quispe DO [address] [place] [address] PCP - General Family Medicine 05/12/21 Ying Quispe DO [address] [place] [address] PCP - PK Attributed Provider - [facility] 05/29/21 05/28/50 Lita Gu MD [address] [place] [address] Consulting Physician Hematology/Oncology 04/24/23 Flap Maker Relationship Specialty Start Date End Date Ying Quispe DO [address] [place] [address] PCP - General Family Medicine 05/12/21 Ying Quispe DO [address] [place] [address] PCP - PK Attributed Provider - [facility] 05/29/21 05/28/50 Lita Gu MD [address] [place] [address] Consulting Physician Hematology/Oncology 04/24/23 Flap Maker Relationship Specialty Start Date End Date Ying Quispe DO [address] [place] [address] PCP - General Family Medicine 05/12/21 Ying Quispe DO [address] [place] [address] PCP - PK Attributed Provider - [facility] 05/29/21 05/28/50 Lita Gu MD [address] [place] [address] Consulting Physician Hematology/Oncology 04/24/23 Flap Maker Relationship Specialty Start Date End Date Ying Quispe DO [address] [place] [address] PCP - General Family Medicine 05/12/21 Ying Quispe DO [address] [place] [address] PCP - PK Attributed Provider - [facility] 05/29/21 05/28/50 Lita Gu MD [address] [place] [address] Consulting Physician Hematology/Oncology 04/24/23 Flap Maker Relationship Specialty Start Date End Date Ying Quispe DO [address] [place] [address] PCP - General Family Medicine 05/12/21 Ying Quispe DO [address] [place] [address] PCP - PK Attributed Provider - [facility] 05/29/21 05/28/50 Lita Gu MD [address] [place] [address] Consulting Physician Hematology/Oncology 04/24/23 Flap Maker Relationship Specialty Start Date End Date Ying Quispe DO [address] [place] [address] PCP - General Family Medicine 05/12/21 Ying Quispe DO [address] [place] [address] PCP - PK Attributed Provider - [facility] 05/29/21 05/28/50 Lita Gu MD [address] [place] [address] Consulting Physician Hematology/Oncology 04/24/23 Flap Maker Relationship Specialty Start Date End Date Ying Quispe DO [address] [place] [address] PCP - General Family Medicine 05/12/21 Ying Quispe DO [address] [place] [address] PCP - PK Attributed Provider - [facility] 05/29/21 05/28/50 Lita Gu MD [address] [place] [address] Consulting Physician Hematology/Oncology 04/24/23 Flap Maker Relationship Specialty Start Date End Date Ying Quispe DO [address] [place] [address] PCP - General Family Medicine 05/12/21 Ying Quispe DO [address] [place] [address] PCP - PK Attributed Provider - [facility] 05/29/21 05/28/50 Lita Gu MD [address] [place] [address] Consulting Physician Hematology/Oncology 04/24/23 Flap Maker Relationship Specialty Start Date End Date Ying Quispe DO [address] [place] [address] PCP - General Family Medicine 05/12/21 Ying Quispe DO [address] [place] [address] PCP - PK Attributed Provider - [facility] 05/29/21 05/28/50 Lita Gu MD [address] [place] [address] Consulting Physician Hematology/Oncology 04/24/23 Flap Maker Relationship Specialty Start Date End Date Ying Quispe DO [address] [place] [address] PCP - General Family Medicine 05/12/21 Ying Quispe DO [address] [place] [address] PCP - PK Attributed Provider - [facility] 05/29/21 05/28/50 Lita Gu MD [address] [place] [address] Consulting Physician Hematology/Oncology 04/24/23 Flap Maker Relationship Specialty Start Date End Date Ying Quispe DO [address] [place] [address] PCP - General Family Medicine 05/12/21 Ying Quispe DO [address] [place] [address] PCP - PK Attributed Provider - [facility] 05/29/21 05/28/50 Lita Gu MD [address] [place] [address] Consulting Physician Hematology/Oncology 04/24/23 Flap Maker Relationship Specialty Start Date End Date Ying Quispe DO [address] [place] [address] PCP - General Family Medicine 05/12/21 Ying Quispe DO [address] [place] [address] PCP - PK Attributed Provider - [facility] 05/29/21 05/28/50 Lita Gu MD [address] [place] [address] Consulting Physician Hematology/Oncology 04/24/23 Flap Maker Relationship Specialty Start Date End Date Ying Quispe DO [address] [place] [address] PCP - General Family Medicine 05/12/21 Ying Quispe DO [address] [place] [address] PCP - PK Attributed Provider - [facility] 05/29/21 05/28/50 Lita Gu MD [address] [place] [address] Consulting Physician Hematology/Oncology 04/24/23 Flap Maker Relationship Specialty Start Date End Date Ying Quispe DO [address] [place] [address] PCP - General Family Medicine 05/12/21 Ying Quispe DO [address] [place] [address] PCP - PK Attributed Provider - [facility] 05/29/21 05/28/50 Lita Gu MD [address] [place] [address] Consulting Physician Hematology/Oncology 04/24/23 Flap Maker Relationship Specialty Start Date End Date Ying Quispe DO [address] [place] [address] PCP - General Family Medicine 05/12/21 Ying Quispe DO [address] [place] [address] PCP - PK Attributed Provider - [facility] 05/29/21 05/28/50 Lita Gu MD [address] [place] [address] Consulting Physician Hematology/Oncology 04/24/23 Flap Maker Relationship Specialty Start Date End Date Ying Quispe DO [address] [place] [address] PCP - General Family Medicine 05/12/21 Ying Quispe DO [address] [place] [address] PCP - PK Attributed Provider - [facility] 05/29/21 05/28/50 Lita Gu MD [address] [place] [address] Consulting Physician Hematology/Oncology 04/24/23 Flap Maker Relationship Specialty Start Date End Date Ying Quispe DO [address] [place] [address] PCP - General Family Medicine 05/12/21 Ying Quispe DO [address] [place] [address] PCP - PK Attributed Provider - [facility] 05/29/21 05/28/50 Lita Gu MD [address] [place] [address] Consulting Physician Hematology/Oncology 04/24/23 Flap Maker Relationship Specialty Start Date End Date Ying Quispe DO [address] [place] [address] PCP - General Family Medicine 05/12/21 Ying Quispe DO [address] [place] [address] PCP - PK Attributed Provider - [facility] 05/29/21 05/28/50 Lita Gu MD [address] [place] [address] Consulting Physician Hematology/Oncology 04/24/23 Flap Maker Relationship Specialty Start Date End Date Ying Quispe DO [address] [place] [address] PCP - General Family Medicine 05/12/21 Ying Quispe DO [address] [place] [address] PCP - PK Attributed Provider - [facility] 05/29/21 05/28/50 Lita Gu MD [address] [place] [address] Consulting Physician Hematology/Oncology 04/24/23 Flap Maker Relationship Specialty Start Date End Date Ying Quispe DO [address] [place] [address] PCP - General Family Medicine 05/12/21 Ying Quispe DO [address] [place] [address] PCP - PK Attributed Provider - [facility] 05/29/21 05/28/50 Lita Gu MD [address] [place] [address] Consulting Physician Hematology/Oncology 04/24/23 Flap Maker Relationship Specialty Start Date End Date Ying Quispe DO [address] [place] [address] PCP - General Family Medicine 05/12/21 Ying Quispe DO [address] [place] [address] PCP - PK Attributed Provider - [facility] 05/29/21 05/28/50 Lita Gu MD [address] [place] [address] Consulting Physician Hematology/Oncology 04/24/23 Flap Maker Relationship Specialty Start Date End Date Ying Quispe DO [address] [place] [address] PCP - General Family Medicine 05/12/21 Ying Quispe DO [address] [place] [address] PCP - PK Attributed Provider - [facility] 05/29/21 05/28/50 Lita Gu MD [address] [place] [address] Consulting Physician Hematology/Oncology 04/24/23 Flap Maker Relationship Specialty Start Date End Date Ying Quispe DO [address] [place] [address] PCP - General Family Medicine 05/12/21 Ying Quispe DO [address] [place] [address] PCP - PK Attributed Provider - [facility] 05/29/21 05/28/50 Lita Gu MD [address] [place] [address] Consulting Physician Hematology/Oncology 04/24/23 Flap Maker Relationship Specialty Start Date End Date Ying Quispe DO [address] [place] [address] PCP - General Family Medicine 05/12/21 Ying Quispe DO [address] [place] [address] PCP - PK Attributed Provider - [facility] 05/29/21 05/28/50 Lita Gu MD [address] [place] [address] Consulting Physician Hematology/Oncology 04/24/23 Flap Maker Relationship Specialty Start Date End Date Ying Quispe DO [address] [place] [address] PCP - General Family Medicine 05/12/21 Ying Quispe DO [address] [place] [address] PCP - PK Attributed Provider - [facility] 05/29/21 05/28/50 Lita Gu MD [address] [place] [address] Consulting Physician Hematology/Oncology 04/24/23 Flap Maker Relationship Specialty Start Date End Date Ying Quispe DO [address] [place] [address] PCP - General Family Medicine 05/12/21 Ying Quispe DO [address] [place] [address] PCP - PK Attributed Provider - [facility] 05/29/21 05/28/50 Lita Gu MD [address] [place] [address] Consulting Physician Hematology/Oncology 04/24/23 Flap Maker Relationship Specialty Start Date End Date Ying Quispe DO [address] [place] [address] PCP - General Family Medicine 05/12/21 Ying Quispe DO [address] [place] [address] PCP - PK Attributed Provider - [facility] 05/29/21 05/28/50 Lita Gu MD [address] [place] [address] Consulting Physician Hematology/Oncology 04/24/23 Yisel Paiz MD [address] [place] [address] Consulting Physician Nephrology 12/27/23 Flap Maker Relationship Specialty Start Date End Date Ying Quispe DO [address] [place] [address] PCP - General Family Medicine 05/12/21 Ying Quispe DO [address] [place] [address] PCP - PK Attributed Provider - [facility] 05/29/21 05/28/50 Lita Gu MD [address] [place] [address] Consulting Physician Hematology/Oncology 04/24/23 Yisel Paiz MD [address] [place] [address] Consulting Physician Nephrology 12/27/23 Flap Maker Relationship Specialty Start Date End Date Ying Quispe DO [address] [place] [address] PCP - General Family Medicine 05/12/21 Ying Quispe DO [address] [place] [address] PCP - PK Attributed Provider - [facility] 05/29/21 05/28/50 Lita Gu MD [address] [place] [address] Consulting Physician Hematology/Oncology 04/24/23 Yisel Paiz MD [address] [place] [address] Consulting Physician Nephrology 12/27/23 Flap Maker Relationship Specialty Start Date End Date Ying Quispe DO [address] [place] [address] PCP - General Family Medicine 05/12/21 Ying Quispe DO [address] [place] [address] PCP - PK Attributed Provider - [facility] 05/29/21 05/28/50 Lita Gu MD [address] [place] [address] Consulting Physician Hematology/Oncology 04/24/23 Yisel Paiz MD [address] [place] [address] Consulting Physician Nephrology 12/27/23 Flap Maker Relationship Specialty Start Date End Date Ying Quispe DO [address] [place] [address] PCP - General Family Medicine 05/12/21 Ying Quispe DO [address] [place] [address] PCP - PK Attributed Provider - [facility] 05/29/21 05/28/50 Lita Gu MD [address] [place] [address] Consulting Physician Hematology/Oncology 04/24/23 Yisel Paiz MD [address] [place] [address] Consulting Physician Nephrology 12/27/23 Flap Maker Relationship Specialty Start Date End Date Ying Quispe DO [address] [place] [address] PCP - General Family Medicine 05/12/21 Ying Quispe DO [address] [place] [address] PCP - PK Attributed Provider - [facility] 05/29/21 05/28/50 Lita Gu MD [address] [place] [address] Consulting Physician Hematology/Oncology 04/24/23 Yisel Paiz MD [address] [place] [address] Consulting Physician Nephrology 12/27/23 Flap Maker Relationship Specialty Start Date End Date Ying Quispe DO [address] [place] [address] PCP - General Family Medicine 05/12/21 Ying Quispe DO [address] [place] [address] PCP - PK Attributed Provider - [facility] 05/29/21 05/28/50 Lita Gu MD [address] [place] [address] Consulting Physician Hematology/Oncology 04/24/23 Yisel Paiz MD [address] [place] [address] Consulting Physician Nephrology 12/27/23 Flap Maker Relationship Specialty Start Date End Date Ying Quispe DO [address] [place] [address] PCP - General Family Medicine 05/12/21 Ying Quispe DO [address] [place] [address] PCP - PK Attributed Provider - [facility] 05/29/21 05/28/50 Lita Gu MD [address] [place] [address] Consulting Physician Hematology/Oncology 04/24/23 Yisel Paiz MD [address] [place] [address] Consulting Physician Nephrology 12/27/23 Flap Maker Relationship Specialty Start Date End Date Ying Quispe DO [address] [place] [address] PCP - General Family Medicine 05/12/21 Ying Quispe DO [address] [place] [address] PCP - PK Attributed Provider - [facility] 05/29/21 05/28/50 Lita Gu MD [address] [place] [address] Consulting Physician Hematology/Oncology 04/24/23 Yisel Paiz MD [address] [place] [address] Consulting Physician Nephrology 12/27/23 Flap Maker Relationship Specialty Start Date End Date Ying Quispe DO [address] [place] [address] PCP - General Family Medicine 05/12/21 Ying Quispe DO [address] [place] [address] PCP - PK Attributed Provider - [facility] 05/29/21 05/28/50 Lita Gu MD [address] [place] [address] Consulting Physician Hematology/Oncology 04/24/23 Yisel Paiz MD [address] [place] [address] Consulting Physician Nephrology 12/27/23 Flap Maker Relationship Specialty Start Date End Date Ying Quispe DO [address] [place] [address] PCP - General Family Medicine 05/12/21 Ying Quispe DO [address] [place] [address] PCP - PK Attributed Provider - [facility] 05/29/21 05/28/50 Lita Gu MD [address] [place] [address] Consulting Physician Hematology/Oncology 04/24/23 Yisel Paiz MD [address] [place] [address] Consulting Physician Nephrology 12/27/23 Flap Maker Relationship Specialty Start Date End Date Ying Quispe DO [address] [place] [address] PCP - General Family Medicine 05/12/21 Ying Quispe DO [address] [place] [address] PCP - PK Attributed Provider - [facility] 05/29/21 05/28/50 Lita Gu MD [address] [place] [address] Consulting Physician Hematology/Oncology 04/24/23 Yisel Paiz MD [address] [place] [address] Consulting Physician Nephrology 12/27/23 Flap Maker Relationship Specialty Start Date End Date Ying Quispe DO [address] [place] [address] PCP - General Family Medicine 05/12/21 Ying Quispe DO [address] [place] [address] PCP - PK Attributed Provider - [facility] 05/29/21 05/28/50 Lita Gu MD [address] [place] [address] Consulting Physician Hematology/Oncology 04/24/23 Yisel Paiz MD [address] [place] [address] Consulting Physician Nephrology 12/27/23 Flap Maker Relationship Specialty Start Date End Date Ying Quispe DO [address] [place] [address] PCP - General Family Medicine 05/12/21 Ying Quispe DO [address] [place] [address] PCP - PK Attributed Provider - [facility] 05/29/21 05/28/50 Lita Gu MD [address] [place] [address] Consulting Physician Hematology/Oncology 04/24/23 Yisel Paiz MD [address] [place] [address] Consulting Physician Nephrology 12/27/23 Flap Maker Relationship Specialty Start Date End Date Ying Quispe DO [address] [place] [address] PCP - General Family Medicine 05/12/21 Ying Quispe DO [address] [place] [address] PCP - PK Attributed Provider - [facility] 05/29/21 05/28/50 Lita Gu MD [address] [place] [address] Consulting Physician Hematology/Oncology 04/24/23 Yisel Paiz MD [address] [place] [address] Consulting Physician Nephrology 12/27/23 Flap Maker Relationship Specialty Start Date End Date Ying Quispe DO [address] [place] [address] PCP - General Family Medicine 05/12/21 Ying Quispe DO [address] [place] [address] PCP - PK Attributed Provider - [facility] 05/29/21 05/28/50 Lita Gu MD [address] [place] [address] Consulting Physician Hematology/Oncology 04/24/23 Yisel Paiz MD [address] [place] [address] Consulting Physician Nephrology 12/27/23 Codie Garcia, cow tenderGuard Driver 07/02/24 Flap Maker Relationship Specialty Start Date End Date Ying Quispe DO [address] [place] [address] PCP - General Family Medicine 05/12/21 Ying Quispe DO [address] [place] [address] PCP - PK Attributed Provider - [facility] 05/29/21 05/28/50 Lita Gu MD [address] [place] [address] Consulting Physician Hematology/Oncology 04/24/23 Yisel Paiz MD [address] [place] [address] Consulting Physician Nephrology 12/27/23 Codie Garcia, cow tenderGuard Driver 07/02/24 07/03/24 Flap Maker Relationship Specialty Start Date End Date Ying Quispe DO [address] [place] [address] PCP - General Family Medicine 05/12/21 Ying Quispe DO [address] [place] [address] PCP - PK Attributed Provider - [facility] 05/29/21 05/28/50 Lita Gu MD [address] [place] [address] Consulting Physician Hematology/Oncology 04/24/23 Yisel Paiz MD [address] [place] [address] Consulting Physician Nephrology 12/27/23 Flap Maker Relationship Specialty Start Date End Date Ying Quispe DO [address] [place] [address] PCP - General Family Medicine 05/12/21 Ying Quispe DO [address] [place] [address] PCP - PK Attributed Provider - [facility] 05/29/21 05/28/50 Lita Gu MD [address] [place] [address] Consulting Physician Hematology/Oncology 04/24/23 Yisel Paiz MD [address] [place] [address] Consulting Physician Nephrology 12/27/23 Team Status: Inactive [...] 2024 End: August 14, 2024 Dr. Millie ERNE MD Attending Provider Active Start: August 14, [...] Stacy Cano RN)[id number] (Stopped - Provider: Jessie Cano, JACKIE) PRN Medication Order 06/09/2022 06/10/2022 06/11/2022 acetaminophen (TYLENOL) tablet 650 mg 650 mg, Oral, Every 4 hours PRN, mild pain, fever 100.4 F or greater, headaches, Starting on Mon06/10/22 at 1238 [id number] (Given - Provider: Stacy Cano, RN) heparin bolus from bag 0-10,000 Units (CANCELED) [...] (Bolus from Bag - Provider: Stacy Cano, RN) ondansetron (ZOFRAN) injection 4 mg(Linked Group 3) [...] BE BASED ON THE PRIMARY CLINICAL RECORDS. [employer] provides no warranty or guarantee of the accuracy or completeness of information in this document.
[2024-11-12 10:20] LABS: Thyroid Stim Hormone (TSH) 0.881 uIU/mL (0.300-4.200)
== END ==
LOC: OLS.SW 05:00
PROVIDERS: PCP Internal Medicine; Visit Provider Internal Medicine
DX: E03.9 Hypothyroidism, unspecified (principal)
CPT/HCPCS: 36415; 84443

== ENCOUNTER → 2024-11-18 | Outpatient (REF) | payer OTHER, SELFPAY ==
--- OUTSIDE RECORDS SUMMARY | 2024-11-18 04:26 | XMS RPT_ITS | CCD ---
Author Organization [facility] ion Partnership [facility] Care Team Providers Care Industrial Property Appraiser Name Role Phone Bambi Huynh Unavailable Bambi Huynh Unavailable Unavail able Bambi Huynh Unavailable Unavail able Bambi Huynh Primary Care Provider Bambi Huynh Primary Care Provider BAMBI HUYNH Primary Care Unavail able REBECA KAUR Attending Unavail able Bambi Huynh Primary Care Provider Bambi Huynh Unavailable Bambi Huynh MD Primary Care Provide r Bambi Huynh MD Unavailable Ying Quispe DO Primary Care Provider Ying Quispe DO Primary Care Provider Ying Quispe DO Primary Care Provider [phone] Ying Quispe DO Unavailable Bambi Huynh MD Primary Care Provide r Makenzie Bajwa CNP Primary Care Provider Ying Quispe DO Unavailable Jose MEJIA, Codie Alfred Unavailable Unav ailable Ying Quispe DO Unavailable Lita Gu MD Unavailable PHYSICIAN, PCP UNKNOWN Primary Care Unavailab LUCRECIA ForteETH E~[phone] Attend ing Unavailable GRESSER, BRONWYN N Referring Unavailable PHYSICIAN, PCP UNKNOWN Primary Care Unavailab le GRESSER, BRONWYN N Attending Unavailable PHYSICIAN, PCP UNKNOWN Primary Care Unavailab le ALLEN FRANK, FRANK~[phone] [facility] Attending Unavailable PHYSICIAN, PCP UNKNOWN Primary Care Unavailab le ALLEN FRANK, FRANK~[phone] [facility] Attending Unavailable GRESSER, BRONWYN N Attending Unavailable [...] PCP UNKNOWN Primary Care Unavailab le BRANDT CAGE~[phone] RAGHAVENDRA Attending Unavailable BRANDT CAGE~[phone] RAGHAVENDRA Referring Unavailable PHYSICIAN, PCP UNKNOWN Primary [...] Unavailable YING QUISPE Primary Care Unavailable [facility] Consulting Unav ailable BRITTANEYYING Primary Care [...] Consulting Unavailable KELSEA FLORES Consulting Unavaila ble [facility] Consul ting Unavailable PHYSICIANS, [facility] Consulting Unav ailable LATOSHA PARISI Consulting [...] e BRITTANEY, YING ZAHRA Primary Care Unavailable BRTITANIE, LITA Referring Unavailabl e BRITTANEY, YING ZAHRA [...] Bennie KENNEDY, Dr. Zamora Referring Provider [phone] Bennie KENNEDY, Dr. Zamora Emergency Provider [phone] Kvng Watkins DO Admit Provider [phone] Dr. Kvng Watkins DO Other Provider [phone] Gómez KENNEDY, Dr. Connor Attending Provider Dr. Kvng Watkins DO Attending Provider Dudley KENNEDY, Dr. Ivone Reese Attending Provider Gómez KENNEDY, Dr. Connor Other Provider Bryson KENNEDY, Dr. Pitno Primary Care Provider [facility], Dr. Wagoner Emergency Provider Gómez KENNEDY, [...] Sandy Attending Provider Meghan Turcios Referring Provider [phone] Cristobal KENNEDY, Dr. Killian Attending Provider Angie Torres Consulting Unavailable Kvng Watkins Admitting Unavailable Nikolas Magaña Attending Unavailable Noah Avery Referring Unavailable Ethan Rodriguez Primary Care Unavailable Kvng Watkins Consulting Unavailable Koram, Mar Arpita Consulting Unavailable Jopperi, Judd Consulting Unavailable Gudla, Millie Primary Care Unavailable Gudla, Millie Referring Unavailable Gudla, Millie Attending Unavailable Melissa, Jayaprakas Consulting Unavailable Gudla, Millie Primary Care Unavailable Gómez, Nikolas Admitting Unavailable Gómez, Nikolas Attending Unavailable Melissa, Jayaprakas Consulting Unavailable Kvng Watkins Admitting Unavailable Rodriguez, Ethan Primary Care Unavailable Noah Avery Referring Unavailable Gómez, Nikolas Attending Unavailable Mostjose, Kvng Consulting Unavailable Koram, Mar Arpita Consulting Unavailable Jopperi, Judd Consulting Unavailable Gómez, Nikolas Consulting Unavailable Melissa, Jayaprakas Consulting Unavailable Jopperi, Judd Admitting Unavailable Koram, Mar Arpita Attending Unavailable Rodriguez, Ethan Primary Care Unavailable Jopperi, Judd Consulting Unavailable Remedios Kessler Consulting Unavailable Gudla EDGARD Millie Attending Unavailable Rodriguez, Ethan Primary Care Unavailable Rodriguez, Ethan Primary Care Unavailable Wilbert Cueto Attending Unavailable Gudla, Millie Primary Care Unavailable Constantin Jain Attending Unavailable Gudla EDGARD, Millie Attending Unavailable Gudla, Millie Primary Care Unavailable Rodriguez Ethan RENE Attending Unavailable Rodriguez, Ethan Primary Care Unavailable Gudla EDGARD, Millie Attending Unavailable Rodriguez, Ethan Primary Care Unavailable Jeffery Veloz Attending Unavailable Rodriguez, Ethan Primary Care Unavailable Gudla OLS, Millie Attending Unavailable Gudla OLS, Millie Referring Unavailable Gudla, Millie Primary Care Unavailable Gudla EDGARD Millie Attending Unavailable Gudla, Millie Primary Care Unavailable Rodrgiuez EDGARD, Ethan Referring Unavailable Rodriguez EDGARD Ethan Attending Unavailable Rodriguez, Ethan Primary Care Unavailable Gudla OLS, Millie Attending Unavailable Rodriguez, Ethan Primary Care Unavailable Gudla OLS, Millie Attending Unavailable Rodriguez, Ethan Primary Care Unavailable Rodriguez, Ethan Primary Care Unavailable Sadia Phoenix Attending Unavailable Jopperi, Judd Attending Unavailable Mynoreri, Judd Attending Unavailable Rodriguez, Ethan Primary Care Unavailable Melissa, Jayaprakas Consulting Unavailable Gudla, Millie Primary Care Unavailable Gómez, Nikolas Admitting Unavailable Gómez, Nikolas Attending Unavailable Gómez, Nikolas Consulting Unavailable Koram, Mar Arpita Attending Unavailable Ivone Buckner Attending Unavailable Rodriguez, Ethan Primary Care Unavailable Jeffery Veloz Attending Unavailable Rodriguez, Ethan Referring Unavailable Rodriguez, Ethan Primary Care Unavailable Chioma Vigil Attending Unavailable Rodriguez, Ethan Referring Unavailable Svetlana Harrison Attending Unavailable Gudla, Millie Primary Care Unavailable Gudla EDGARD, Millie Referring Unavailable Gudla Millie RENE Attending Unavailable Gudla, Millie Primary Care Unavailable Gudla Millie RENE Attending Unavailable Gudla, Millie Primary Care Unavailable Gudla Sadie RENEyothi Attending Unavailable Gudla, Millie Primary Care Unavailable Gudla Millie RENE Attending Unavailable Gudla, Millie Primary Care Unavailable Gudla Millie RENE Attending Unavailable Gudla Millie RENE Attending Unavailable Rodriguez, Ethan Primary Care Unavailable Rodriguez EDGARD, Ethan Referring Unavailable Rodriguez Ethan RENE Attending Unavailable Rodriguez, Ethan Primary Care Unavailable Gudla, Millie Primary Care Unavailable Gudla Millie RENE Attending Unavailable Gudla, Millie Primary Care Unavailable Gudla Millie RENE Attending Unavailable Gudla Millie RENE Attending Unavailable Rodriguez, Ethan Primary Care Unavailable Gudla Millie RENE Attending Unavailable Gudla, Millie Primary Care Unavailable Gudla, Millie Primary Care Unavailable Gudla Millie RENE Attending Unavailable Gudla, Millie Primary Care Unavailable Gudla Millie RENE Attending Unavailable Rodriguez Ethan RENE Attending Unavailable Rodriguez, Ethan Primary Care Unavailable Angie Torres Attending Unavailable Kervin Torress Referring Unavailable Rodriguez, Ethan Primary Care Unavailable Rodriguez, Ethan Primary Care Unavailable Rodriguez Ethan RENE Attending Unavailable Toribio, Sheldon Attending Unavailable Rodriguez, Ethan Primary Care Unavailable Rodriguez Ethan RENE Attending Unavailable Rodriguez, Ethan Primary Care Unavailable Gudla Millie RENE Attending Unavailable Rodriguez, Ethan Primary Care Unavailable Gudla Millie RENE Attending Unavailable Rodriguez, Ethan Primary Care Unavailable Gudla Millie RENE Attending Unavailable Rodriguez, Ethan Primary Care Unavailable Nick Gallegos Attending Unavailable Gudla, Millie Primary Care Unavailable Gudla Millie RENE Attending Unavailable Melissa, Princeyaprakas Consulting Unavailable Koram, Mar Arpita Referring Unavailable FriendNick Attending Unavailable Ethan Rodriguez Primary Care Unavailable Judd Galvin Admitting Unavailable Judd Galvin Consulting Unavailable Remedios Kessler Consulting Unavailable Remedios Kessler Attending Unavailable Tevin Nicholas Attending Unavailable Millie Massey Primary Care Unavailable Sadie Masseyyothi Primary Care Unavailable Brandt Mendez Referring Unavailable Brandt Mendez Attending Unavailable Adilene Rainey Attending Unavailable Ethan Rodriguez Primary Care Unavailable Ethan Rodriguez Referring Unavailable Mar Mead Attending Unavailable Mar Mead Consulting Unavailable Kvng Watkins Attending Unavailable Millie Ferro Attending Unavailable Ethan Rodriguez Primary Care Unavailable Allergies Allergy Classification Reported Allergen(s) Allergy Type Date of Onset Reaction(s) Facility (20 sources) Iodine Compounds; Translations: [Unknown] Propensity to adverse reactions to drug 7 GI Intolerance, Rash [facility] Work Phone: (6 sources) Iodine And Iodide Containing Products Propensity to adverse reactions to drug 7 GI Intolerance [facility] (20 sources) Shellfish; Translations: [SHELLFISH DERIVED] Propensity to adverse reactions to drug 4 GI Intolerance [facility] (12 sources) Fish derivative; Translations: [FISH DERIVED] Propensity to adverse reactions to drug 4 GI Intolerance [facility] Work Phone: (9 sources) Iodine Drug Allergy 5 [facility] (1 source) Iodine Drug Allergy 5 [facility] Repository Medications Current Medications Medication Drug Class(es) [...] in 24 hours. take 2 tablets by [facility] every six hours as needed for [...] mcg/actuation inhaler (2 sources) Start: 12-06-2019 End: 07-10-2021 take 2 puff(s) by inhalation every six [...] docusate sodium 50 mg / sharon osides, skilled nursing 8.6 mg oral tablet (20 sources) Start: [...] (eight) hours . Active lactobacillus rhamnosus gg [id number] unt oral capsule (18 sources) Start: 07-18-2024 Start: 03-05-2024 take 1 capsule by [facility] once daily in the morning Lactobacillus [...] by mouth every morning . 02/28/2024 Active cjryqlzm-qpa-pswv fum-folic ac (Thera-M) 19 mg iron- 400 mcg Tab (9 sources) Start: 03-05-2024 take 1 tablet by mouth once daily in the morning kppnpnwk-beb-zysf fum-folic ac (Thera-M) 19 mg iron- 400 [...] Opioid Antagonist naloxone (NARC AN) 4 mg/actuation [place] Administer 1 (one) spray (4 mg total) [...] End: 07-18-2024 take 1 capsule by mo [facility] every six hours as needed for [...] Start: 08-13-2024 End: 08-17-2024 polyethylene glycol [id number] mg powder for oral solution (9 sources) [...] Drug Class(es) Dates Sig (Normalized) Sig (Original) [id number] actuat albuterol 0.09 mg/actuat metered dose [...] injection 2 mg naloxone (NARCAN) 4 mg/actuation [place] (6 sources) End: 11-23-2023 naloxone (NARCAN) 4 mg/actuation [place] Administer 1 (one) spray (4 mg total) into one nostril as needed (OPIOID OVERDOSE) Administer 1 spray into one nostril for known or suspected opioid overdose. If patient worsens or does not respond, may repeat in 2-3 minutes. . 11/23/2023 Discontinued naloxone (NARCAN ) 4 mg/actuation [place] Administer 1 (one) spray (4 mg total) [...] Admin Instructions 2.5mg on M//F 5mg on S/// RE-CHECK ON 12/20/23 On hold since last week per pt. . 12/13/2023 Suspended Start: 12-13-2023 warfarin (COUM RADHA) 2.5 MG tablet Take 1 (one) tablet (2.5 mg total) by mouth See Admin Instructions 2.5mg on //F 5mg on /// RE-CHECK ON 12/20/23 . 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 (current) use of anticoagulants] 07-31-2024 Episodic Other [...] Constipation; Translations: [Constipation, unspecified] 04-30-2024 Episodic Other liver diseases (1 source) Enzyme [...] in left hip] Onset: 9 Episodic Other skin disorders (1 source) Acquired [...] 5 Episodic Respiratory failure; insufficiency; arrest (adult) (11 sources) Acute respiratory failure; Translations: [Acute respiratory [...] kidney failure, unspecified] Onset: 05-01-2024 11-02-2023 Episodic Acute posthemorrhagic anemia (20 sources) Acute posthemorrhagic anemia; Translations: [Acute posthemorrhagic anemia] Onset: 10-09-2023 Episodic Appendicitis and other appendiceal conditions (20 [...] and ureter, unspecified] Onset: 12-26-2023 Episodic Other gastrointestinal disorders (1 source) Diarrhea, unspecified; Translations: [Diarrhea, unspecified] Onset: 08-14-2024 Episodic Other lower respiratory disease (2 sources) Solitary pulmonary nodule; Translations: [Solitary pulmonary nodule] Onset: 10-09-2023 Episodic Other nervous system disorders (2 sources) Paresthesia of skin; Translations: [Paresthesia of skin] Onset: 10-09-2023 Episodic Other non-traumatic joint disorders (20 sources) Hip pain; Translations: [Pain in right hip] Onset: 04-08-2019 04-08-2019 Episodic Other screening for suspected conditions (not mental disorders or infectious disease) (20 sources) Patient encounter status; Translations: [Encounter for screening mammogram for malignant neoplasm of breast] Onset: 02-13-2023 Episodic Other skin disorders (1 source) Changes [...] Test Name Value Interpretation Reference Range Facility Thyroid Stim Hormone (TSH)on 11-12-2024 TSH 0.881 uIU/mL Normal 0.300-4.20 0 [facility] Comment on above: Order Comment: 105 Performed By: #### L 501.9520 ####[facility] [address] [place], [address] Wound Cultureon 11-08-2024 WC Normal [facility] Comment on above: Performed By: #### M 100.2000, M100.3000 ####[facility] [address] [place], [address] CBC W/Diff, Automatedon 10-27-2024 Absolute Lymph 0.44 X10 3/uL Low 0.83-4.51 [facility] Comment on above: Performed By: #### L 100.0100, L3000.0375, L501.6710 ####[facility] [address] [place], [address] Absolute Neut 5.2 X10 3/uL Normal 2.0-7.7 [facility] Comment on above: Performed By: #### L 100.0100, L3000.0375, L501.6710 ####[facility] [address] [place], [address] Basophils/100 WBC (Bld) 0.6 % Normal 0-1 [facility] Comment on above: Performed By: #### L 100.0100, L3000.0375, L501.6710 ####[facility] [address] [place], [address] Eosinophils/100 WBC (Bld) 3.6 % Normal 0-5 [facility] Comment on above: Performed By: #### L 100.0100, L3000.0375, L501.6710 ####[facility] [address] [place], [address] Erythrocyte distribution width (RBC) [Ratio] 17.1 % High 11.6-14.6 [facility] Comment on above: Performed By: #### L 100.0100, L3000.0375, L501.6710 ####[facility] [address] [place], [address] Hematocrit (Bld) [Volume fraction] 36.9 % Low 37-47 [facility] Comment on above: Performed By: #### L 100.0100, L3000.0375, L501.6710 ####[facility] [address] [place], [address] Hemoglobin (Bld) [Mass/Vol] 11.4 g/dL Low 12.0-15.0 [facility] Comment on above: Performed By: #### L 100.0100, L3000.0375, L501.6710 ####[facility] [address] [place], [address] IG% 0.300 Normal 0.0-0.9 [facility] Comment on above: Result Comment: IG% - Immature Granulocytes (promyelocytes, myelocytes andmetamyelocytes) > 1% indicates that a LEFT SHIFT is Present. Performed By: #### L 100.0100, L3000.0375, L501.6710 ####[facility] [address] [place], [address] Lymphocytes/100 WBC (Bld) 6.7 % Low 19-41 [facility] Comment on above: Performed By: #### L 100.0100, L3000.0375, L501.6710 ####[facility] [address] [place], [address] MCH (RBC) [Entitic mass] 27.0 pg Normal 27.0-32.0 [facility] Comment on above: Performed By: #### L 100.0100, L3000.0375, L501.6710 ####[facility] [address] [place], [address] MCHC (RBC) [Mass/Vol] 30.9 g/dL Low 32-36 [facility] Comment on above: Performed By: #### L 100.0100, L3000.0375, L501.6710 ####[facility] [address] [place], [address] MCV (RBC) [Entitic vol] 87.2 fL Normal 81-99 [facility] Comment on above: Performed By: #### L 100.0100, L3000.0375, L501.6710 ####[facility] [address] [place], [address] Monocytes/100 WBC (Bld) 9.7 % Normal 0-10 [facility] Comment on above: Performed By: #### L 100.0100, L3000.0375, L501.6710 ####[facility] [address] [place], [address] Neutrophils/100 WBC (Bld) 79.1 % High 47-70 [facility] Comment on above: Performed By: #### L 100.0100, L3000.0375, L501.6710 ####[facility] [address] [place], [address] Nucleated RBC (Bld) [#/Vol] 0 10*3/uL Normal 0-5 [facility] Comment on above: Performed By: #### L 100.0100, L3000.0375, L501.6710 ####[facility] [address] [place], [address] Platelet mean volume (Bld) [Entitic vol] 12.0 fL Normal 6.2-12.0 [facility] Comment on above: Performed By: #### L 100.0100, L3000.0375, L501.6710 ####[facility] [address] [place], [address] Platelets (Bld) [#/Vol] 189 10*3/uL Normal 150-450 [facility] Comment on above: Performed By: #### L 100.0100, L3000.0375, L501.6710 ####[facility] [address] [place], [address] RBC (Bld) [#/Vol] 4.23 10*6/uL Normal 4.2-5.4 [facility] Comment on above: Performed By: #### L 100.0100, L3000.0375, L501.6710 ####[facility] [address] [place], [address] RDW SD 54.8 fl High 35.1-43.9 [facility] Comment on above: Performed By: #### L 100.0100, L3000.0375, L501.6710 ####[facility] [address] [place], [address] WBC (Bld) [#/Vol] 6.6 10*3/uL Normal 4.4-11.0 [facility] Comment on above: Performed By: #### L 100.0100, L3000.0375, L501.6710 ####[facility] [address] [place], [address] CRPon 11-05-2024 C-REACTIVE PROT 11.90 mg/L High 0.0-3.0 [facility] Comment on above: Performed By: #### L 100.0100, L3000.0375, L501.6710 ####[facility] [address] [place], [address] Gram Stainon 11-05-2024 GS LEFT GREAT TOE Gram Stain 3+ Gram positive cocci Rare Gram positive rods Rare Epithelial cells No White Blood Cells Normal [facility] Comment on above: Performed By: #### M 100.2000, M100.3000 ####[facility] [address] [place], [address] Hepatitis Panel Acuteon 10-27 COMMENT Comment Normal . [facility] Comment on above: Order Comment: 105.1 Result Comment: Not infected with HCV unless early or acute infection issuspected (which may be delayed in an immunocompromisedindividual), or other evidence exists to indicate HCVinfection.Performed at: [facility] [id number] [place], [place] [id number] Director: Manjinder Babb PhD, Phone: [phone] Performed By: #### L 100.0100, L3000.0375, L501.6710 ####[facility] [address] [place], [address] HEP B CORE,IgM Negative Normal Negative [facility] Comment on above: Order Comment: 105.1 Performed By: #### L 100.0100, L3000.0375, L501.6710 ####[facility] [address] [place], [address] HEP B SURF AG Negative Normal Negative [facility] Comment on above: Order Comment: 105.1 Performed By: #### L 100.0100, L3000.0375, L501.6710 ####[facility] [address] [place], [address] HEP C VIRUS AB Non-Reactive Normal Non Reactive [facility] Comment on above: Order Comment: 105.1 Performed By: #### L 100.0100, L3000.0375, L501.6710 ####[facility] [address] [place], [address] HEPATITIS A-IgM Negative Normal Negative [facility] Comment on above: Order Comment: 105.1 Result Comment: A ne gative anti-HAV IgM result suggests no recent orcurrent HAV infection. Performed By: #### L 100.0100, L3000.0375, L501.6710 ####[facility] [address] [place], [address] CBC-Complete Blood Cnt No Di ffon 10-30-2024 Erythrocyte distribution width (RBC) [Ratio] 17.0 % High 11.6-14.6 [facility] Comment on above: Performed By: #### L 100.0500, L500.4050 ####[facility] [address] [place], [address] Hematocrit (Bld) [Volume fraction] 34.9 % Low 37-47 [facility] Comment on above: Performed By: #### L 100.0500, L500.4050 ####[facility] [address] [place], [address] Hemoglobin (Bld) [Mass/Vol] 10.6 g/dL Low 12.0-15.0 [facility] Comment on above: Performed By: #### L 100.0500, L500.4050 ####[facility] [address] [place], [address] MCH (RBC) [Entitic mass] 26.8 pg Low 27.0-32.0 [facility] Comment on above: Performed By: #### L 100.0500, L500.4050 ####[facility] [address] [place], [address] MCHC (RBC) [Mass/Vol] 30.4 g/dL Low 32-36 [facility] Comment on above: Performed By: #### L 100.0500, L500.4050 ####[facility] [address] [place], [address] MCV (RBC) [Entitic vol] 88.4 fL Normal 81-99 [facility] Comment on above: Performed By: #### L 100.0500, L500.4050 ####[facility] [address] [place], [address] Platelet mean volume (Bld) [Entitic vol] 11.2 fL Normal 6.2-12.0 [facility] Comment on above: Performed By: #### L 100.0500, L500.4050 ####[facility] [address] [place], [address] Platelets (Bld) [#/Vol] 172 10*3/uL Normal 150-450 [facility] Comment on above: Performed By: #### L 100.0500, L500.4050 ####[facility] [address] [place], [address] RBC (Bld) [#/Vol] 3.95 10*6/uL Low 4.2-5.4 [facility] Comment on above: Performed By: #### L 100.0500, L500.4050 ####[facility] [address] [place], [address] RDW SD 55.4 fl High 35.1-43.9 [facility] Comment on above: Performed By: #### L 100.0500, L500.4050 ####[facility] [address] [place], [address] WBC (Bld) [#/Vol] 5.7 10*3/uL Normal 4.4-11.0 [facility] Comment on above: Performed By: #### L 100.0500, L500.4050 ####[facility] [address] [place], [address] Comprehensive Metabolic Prof ohon 10-30-2024 Albumin [Mass/Vol] 2.9 g/dL Low 3.4-4.8 [facility] Comment on above: Performed By: #### L 100.0500, L500.4050 ####[facility] [address] [place], [address] Albumin/Globulin [Mass ratio] 0.8 {ratio} Low 0.9-2.4 [facility] Comment on above: Performed By: #### L 100.0500, L500.4050 ####[facility] [address] [place], [address] ALK PHOS 172 U/L High 35-104 [facility] Comment on above: Performed By: #### L 100.0500, L500.4050 ####[facility] [address] [place], [address] ALT [Catalytic activity/Vol] 173 U/L High <=34 [facility] Comment on above: Performed By: #### L 100.0500, L500.4050 ####[facility] [address] [place], [address] AST [Catalytic activity/Vol] 196 U/L High <=31 [facility] Comment on above: Performed By: #### L 100.0500, L500.4050 ####[facility] [address] [place], [address] Bilirubin [Mass/Vol] 0.26 mg/dL Normal 0.00-1.30 [facility] Comment on above: Performed By: #### L 100.0500, L500.4050 ####[facility] [address] [place], [address] BUN/CRE 44.3 RATIO High 10-20 [facility] Comment on above: Performed By: #### L 100.0500, L500.4050 ####[facility] [address] [place], [address] Calcium [Mass/Vol] 10.9 mg/dL Normal 7.6-11.0 [facility] Comment on above: Performed By: #### L 100.0500, L500.4050 ####[facility] [address] [place], [address] Chloride [Moles/Vol] 93 mmol/L Low 98-108 [facility] Comment on above: Performed By: #### L 100.0500, L500.4050 ####[facility] [address] [place], [address] CO2 [Moles/Vol] 30.0 mmol/L Normal 21.0-32.0 [facility] Comment on above: Performed By: #### L 100.0500, L500.4050 ####[facility] [address] [place], [address] Creatinine [Mass/Vol] 1.57 mg/dL High 0.70-1.20 [facility] Comment on above: Performed By: #### L 100.0500, L500.4050 ####[facility] [address] [place], [address] GAP 11 Normal 5-15 [facility] Comment on above: Performed By: #### L 100.0500, L500.4050 ####[facility] [address] [place], [address] GFR/1.73 sq M.predicted among non-blacks MDRD (S/P/Bld) [Vol rate/Area] 37 mL/min/{1.73_m2} Low >60 [facility] Comment on above: Result Comment: mL/m in/1.73m2 CKD-EPI Creatinine Equation (2020) Performed By: #### L 100.0500, L500.4050 ####[facility] [address] [place], [address] Globulin (S) [Mass/Vol] 3.8 g/dL Normal 2.2-4.2 [facility] Comment on above: Performed By: #### L 100.0500, L500.4050 ####[facility] [address] [place], [address] Glucose [Mass/Vol] 109 mg/dL High 70-99 [facility] Comment on above: Performed By: #### L 100.0500, L500.4050 ####[facility] [address] [place], [address] Potassium [Moles/Vol] 3.3 mmol/L Normal 3.3-5.1 [facility] Comment on above: Performed By: #### L 100.0500, L500.4050 ####[facility] [address] [place], [address] Sodium [Moles/Vol] 133 mmol/L Normal 133-145 [facility] Comment on above: Performed By: #### L 100.0500, L500.4050 ####[facility] [address] [place], [address] T PROT 6.7 g/dL Normal 5.9-8.4 [facility] Comment on above: Performed By: #### L 100.0500, L500.4050 ####[facility] [address] [place], [address] Urea nitrogen [Mass/Vol] 70 mg/dL High 09-14 [facility] Comment on above: Performed By: #### L 100.0500, L500.4050 ####[facility] [address] [place], [address] Anion gap in Serum or Plasma Ordered By: Millie Massey on 09-23-2024 Anion gap [Moles/Vol] 13 mmol/L - [facility] BUN/creatinine ratioOrdered By: Millie Massey on 09-23-2024 Urea nitrogen/Creatinine [Mass ratio] 39.5 mg/mg High 03-17 [facility] Basic Metabolic Profile (BMP )on 09-23-2024 BUN/CRE 39.5 RATIO High - [facility] Comment on above: Order Comment: 206.1 Performed By: #### L 500.2500 ####[facility] [address] [place], [address] Calcium [Mass/Vol] 9.4 mg/dL Normal 7.6-11.0 [facility] Comment on above: Order Comment: 206.1 Performed By: #### L 500.2500 ####[facility] [address] [place], [address] Chloride [Moles/Vol] 94 mmol/L Low 98-108 [facility] Comment on above: Order Comment: . Performed By: #### L 500.2500 ####[facility] [address] [place], [address] CO2 [Moles/Vol] 23.4 mmol/L Normal 21.0-32.0 [facility] Comment on above: Order Comment: . Performed By: #### L 500.2500 ####[facility] [address] [place], [address] Creatinine [Mass/Vol] 1.42 mg/dL High 0.70-1.20 [facility] Comment on above: Order Comment: . Performed By: #### L 500.2500 ####[facility] [address] [place], [address] GAP 13 Normal 5-15 [facility] Comment on above: Order Comment: . Performed By: #### L 500.2500 ####[facility] [address] [place], [address] GFR/1.73 sq M.predicted among non-blacks MDRD (S/P/Bld) [Vol rate/Area] 42 mL/min/{1.73_m2} Low >60 [facility] Comment on above: Order Comment: . Result Comment: mL/m in/1.73m2 CKD-EPI Creatinine Equation (2020) Performed By: #### L 500.2500 ####[facility] [address] [place], [address] Glucose [Mass/Vol] 98 mg/dL Normal 70-99 [facility] Comment on above: Order Comment: . Performed By: #### L 500.2500 ####[facility] [address] [place], [address] Potassium [Moles/Vol] 5.1 mmol/L Normal 3.3-5.1 [facility] Comment on above: Order Comment: 206.1 Result Comment: Hemo lysis present, Results??could be affected.?? Performed By: #### L 500.2500 ####[facility] [address] [place], [address] Sodium [Moles/Vol] 131 mmol/L Low 133-145 [facility] Comment on above: Order Comment: 206.1 Performed By: #### L 500.2500 ####[facility] [address] [place], [address] Urea nitrogen [Mass/Vol] 56 mg/dL High 4-19 [facility] Comment on above: Order Comment: 206.1 Performed By: #### L 500.2500 ####[facility] [address] [place], [place], [address] Carbon dioxide, total [Moles /volume] in Central venous bloodOrdered By: Millie Massey on 09-23-2024 CO2 [Moles/Vol] 23.4 mmol/L 21.0-32.0 [facility] Chloride assayOrdered By: Carter Massey on 09-23-2024 Chloride [Moles/Vol] 94 mmol/L Low 98-108 [facility] Glomerular filtration rate ( GFR) estimation/1.73 sq m using serum, plasma, or whole bOrdered By: Millie Massey on 09-23-2024 GFR/1.73 sq M.predicted among non-blacks MDRD (S/P/Bld) [Vol rate/Area] 42 mL/min/{1.73_m2} Low >60 [facility] Potassium measurement (mass/ volume)Ordered By: Millie Massey on 09-23-2024 Potassium (Unsp spec) [Mass/Vol] 5.1 mmol/L 3.3-5.1 [facility] Serum creatinine measurement (mass/volume)Ordered By: Millie Massey on 09-23-2024 Creatinine [Mass/Vol] 1.42 mg/dL High 0.70-1.20 [facility] Serum glucose measurement (m ass/volume)Ordered By: Millie Massey on 09-23-2024 Glucose [Mass/Vol] 98 mg/dL 70-99 [facility] Serum or plasma calcium megan urement (mass/volume)Ordered By: Millie Massey on 09-23-2024 Calcium [Mass/Vol] 9.4 mg/dL 7.6-11.0 [facility] Serum or plasma urea nitroge n measurement (mass/volume)Ordered By: Millie Massey on 09-23-2024 Urea nitrogen [Mass/Vol] 56 mg/dL High 4-19 [facility] Sodium levelOrdered By: Silvana Massey on 09-23-2024 Sodium [Moles/Vol] 131 mmol/L Low 133-145 [facility] Anion gap in Serum or Plasma Ordered By: Millie Massey on 09-18-2024 Anion gap [Moles/Vol] 11 mmol/L 5-15 [facility] BUN/creatinine ratioOrdered By: Millie Massey on 09-18-2024 Urea nitrogen/Creatinine [Mass ratio] 39.3 mg/mg High 10-20 [facility] Bilirubin, totalOrdered By: Millie Massey on 09-18-2024 Bilirubin [Mass/Vol] 0.31 mg/dL 0.00-1.30 [facility] Carbon dioxide, total [Moles /volume] in Central venous bloodOrdered By: Millie Massey on 09-18-2024 CO2 [Moles/Vol] 28.1 mmol/L 21.0-32.0 [facility] Chloride assayOrdered By: Carter Massye on 09-18-2024 Chloride [Moles/Vol] 94 mmol/L Low 98-108 [facility] Comprehensive Metabolic Prof ilon 09-18-2024 Albumin [Mass/Vol] 2.9 g/dL Low 3.4-4.8 [facility] Comment on above: Order Comment: 200 Performed By: #### L 386.8953 ####[facility] [address] [place], [address] Albumin/Globulin [Mass ratio] 0.7 {ratio} Low 0.9-2.4 [facility] Comment on above: Order Comment: 200 Performed By: #### L 500.4050 ####[facility] [address] [place], [address] ALK PHOS 117 U/L High 35-104 [facility] Comment on above: Order Comment: 200 Performed By: #### L 500.4050 ####[facility] [address] [place], [address] ALT [Catalytic activity/Vol] 63 U/L High <=34 [facility] Comment on above: Order Comment: 200 Performed By: #### L 500.4050 ####[facility] [address] [place], [address] AST [Catalytic activity/Vol] 76 U/L High <=31 [facility] Comment on above: Order Comment: 200 Performed By: #### L 500.4050 ####[facility] [address] [place], [address] Bilirubin [Mass/Vol] 0.31 mg/dL Normal 0.00-1.30 [facility] Comment on above: Order Comment: 200 Performed By: #### L 500.4050 ####[facility] [address] [place], [address] BUN/CRE 39.3 RATIO High 10-20 [facility] Comment on above: Order Comment: 200 Performed By: #### L 500.4050 ####[facility] [address] [place], [address] Calcium [Mass/Vol] 9.4 mg/dL Normal 7.6-11.0 [facility] Comment on above: Order Comment: 200 Performed By: #### L 500.4050 ####[facility] [address] [place], [address] Chloride [Moles/Vol] 94 mmol/L Low 98-108 [facility] Comment on above: Order Comment: 200 Performed By: #### L 500.4050 ####[facility] [address] [place], [address] CO2 [Moles/Vol] 28.1 mmol/L Normal 21.0-32.0 [facility] Comment on above: Order Comment: 200 Performed By: #### L 500.4050 ####[facility] [address] [place], [address] Creatinine [Mass/Vol] 1.24 mg/dL High 0.70-1.20 [facility] Comment on above: Order Comment: 200 Performed By: #### L 500.4050 ####[facility] [address] [place], [address] GAP 11 Normal 5-15 [facility] Comment on above: Order Comment: 200 Performed By: #### L 500.4050 ####[facility] [address] [place], [address] GFR/1.73 sq M.predicted among non-blacks MDRD (S/P/Bld) [Vol rate/Area] 49 mL/min/{1.73_m2} Low >60 [facility] Comment on above: Order Comment: 200 Result Comment: mL/m in/1.73m2 CKD-EPI Creatinine Equation (2020) Performed By: #### L 500.4050 ####[facility] [address] [place], [address] Globulin (S) [Mass/Vol] 4.4 g/dL High 2.2-4.2 [facility] Comment on above: Order Comment: 200 Performed By: #### L 500.4050 ####[facility] [address] [place], [address] Glucose [Mass/Vol] 167 mg/dL High 70-99 [facility] Comment on above: Order Comment: 200 Performed By: #### L 500.4050 ####[facility] [address] [place], [address] Potassium [Moles/Vol] 5.1 mmol/L Normal 3.3-5.1 [facility] Comment on above: Order Comment: 200 Performed By: #### L 500.4050 ####[facility] [address] [place], [address] Sodium [Moles/Vol] 133 mmol/L Normal 133-145 [facility] Comment on above: Order Comment: 200 Performed By: #### L 500.4050 ####[facility] [address] [place], [address] T PROT 7.3 g/dL Normal 5.9-8.4 [facility] Comment on above: Order Comment: 200 Performed By: #### L 500.4050 ####[facility] [address] [place], [address] Urea nitrogen [Mass/Vol] 49 mg/dL High 4-19 [facility] Comment on above: Order Comment: 200 Performed By: #### L 500.4050 ####[facility] [address] [place], [address] Glomerular filtration rate ( GFR) estimation/1.73 sq m using serum, plasma, or whole bOrdered By: Millie Massey on 09-18-2024 GFR/1.73 sq M.predicted among non-blacks MDRD (S/P/Bld) [Vol rate/Area] 49 mL/min/{1.73_m2} Low >60 [facility] No Panel InformationOrdered By: Millie Massey on 09-18-2024 76 U/L High <32 [facility] Potassium measurement (mass/ volume)Ordered By: Millie Massey on 09-18-2024 Potassium (Unsp spec) [Mass/Vol] 5.1 mmol/L 3.3-5.1 [facility] Serum creatinine measurement (mass/volume)Ordered By: Millie Massey on 09-18-2024 Creatinine [Mass/Vol] 1.24 mg/dL High 0.70-1.20 [facility] Serum globulin measurementOr dered By: Millie Massey on 09-18-2024 Globulin (S) [Mass/Vol] 4.4 g/dL High 2.2-4.2 [facility] Serum glucose measurement (m ass/volume)Ordered By: Millie Massey on 09-18-2024 Glucose [Mass/Vol] 167 mg/dL High 70-99 [facility] Serum or plasma alanine camargo otransferase (ALT) measurementOrdered By: Millie Massey on 09-18-2024 ALT [Catalytic activity/Vol] 63 U/L High <35 [facility] Serum or plasma albumin megan urement (mass/volume)Ordered By: Millie Massey on 09-18-2024 Albumin [Mass/Vol] 2.9 g/dL Low 3.4-4.8 [facility] Serum or plasma albumin/glob ulin mass ratioOrdered By: Millie Massey on 09-18-2024 Albumin/Globulin [Mass ratio] 0.7 {ratio} Low 0.9-2.4 [facility] Serum or plasma alkaline susan sphatase measurementOrdered By: Millie Massey on 09-18-2024 ALP [Catalytic activity/Vol] 117 U/L High 35-104 [facility] Serum or plasma calcium megan urement (mass/volume)Ordered By: Millie Massey on 09-18-2024 Calcium [Mass/Vol] 9.4 mg/dL 7.6-11.0 [facility] Serum or plasma urea nitroge n measurement (mass/volume)Ordered By: Millie Massey on 09-18-2024 Urea nitrogen [Mass/Vol] 49 mg/dL High 4-19 [facility] Sodium levelOrdered By: Silvana Massey on 09-18-2024 Sodium [Moles/Vol] 133 mmol/L 133-145 [facility] Total proteinOrdered By: Lesli Massey on 09-18-2024 Protein [Mass/Vol] 7.3 g/dL 5.9-8.4 [facility] Anion gap in Serum or Plasma Ordered By: Millie Massey on 09-16-2024 Anion gap [Moles/Vol] 12 mmol/L 5-15 [facility] BUN/creatinine ratioOrdered By: Millie Massey on 09-16-2024 Urea nitrogen/Creatinine [Mass ratio] 36.5 mg/mg High 10-20 [facility] Bilirubin, totalOrdered By: Millie Massey on 09-16-2024 Bilirubin [Mass/Vol] 0.42 mg/dL 0.00-1.30 [facility] CBC-Complete Blood Cnt No Di ffon 09-16-2024 Erythrocyte distribution width (RBC) [Ratio] 19.6 % High 11.6-14.6 [facility] Comment on above: Performed By: #### L 100.0500, L500.4050 ####[facility] [address] [place], [address] Hematocrit (Bld) [Volume fraction] 29.2 % Low 37-47 [facility] Comment on above: Performed By: #### L 100.0500, L500.4050 ####[facility] [address] [place], [address] Hemoglobin (Bld) [Mass/Vol] 8.4 g/dL Low 12.0-15.0 [facility] Comment on above: Performed By: #### L 100.0500, L500.4050 ####[facility] [address] [place], [address] MCH (RBC) [Entitic mass] 26.8 pg Low 27.0-32.0 [facility] Comment on above: Performed By: #### L 100.0500, L500.4050 ####[facility] [address] [place], [address] MCHC (RBC) [Mass/Vol] 28.8 g/dL Low 32-36 [facility] Comment on above: Performed By: #### L 100.0500, L500.4050 ####[facility] [address] [place], [address] MCV (RBC) [Entitic vol] 93.3 fL Normal 81-99 [facility] Comment on above: Performed By: #### L 100.0500, L500.4050 ####[facility] [address] [place], [address] Platelet mean volume (Bld) [Entitic vol] 10.4 fL Normal 6.2-12.0 [facility] Comment on above: Performed By: #### L 100.0500, L500.4050 ####[facility] [address] [place], [address] Platelets (Bld) [#/Vol] 180 10*3/uL Normal 150-450 [facility] Comment on above: Performed By: #### L 100.0500, L500.4050 ####[facility] [address] [place], [address] RBC (Bld) [#/Vol] 3.13 10*6/uL Low 4.2-5.4 [facility] Comment on above: Performed By: #### L 100.0500, L500.4050 ####[facility] [address] [place], [address] RDW SD 65.9 fl High 35.1-43.9 [facility] Comment on above: Performed By: #### L 100.0500, L500.4050 ####[facility] [address] [place], [address] WBC (Bld) [#/Vol] 7.5 10*3/uL Normal 4.4-11.0 [facility] Comment on above: Performed By: #### L 100.0500, L500.4050 ####[facility] [address] [place], [address] Carbon dioxide, total [Moles /volume] in Central venous bloodOrdered By: Millie Massey on 09-16-2024 CO2 [Moles/Vol] 24.4 mmol/L 21.0-32.0 [facility] Chloride assayOrdered By: Carter Massey on 09-16-2024 Chloride [Moles/Vol] 94 mmol/L Low 98-108 [facility] Comprehensive Metabolic Prof ilon 09-16-2024 Albumin [Mass/Vol] 2.8 g/dL Low 3.4-4.8 [facility] Comment on above: Performed By: #### L 100.0500, L500.4050 ####[facility] [address] [place], [address] Albumin/Globulin [Mass ratio] 0.6 {ratio} Low 0.9-2.4 [facility] Comment on above: Performed By: #### L 100.0500, L500.4050 ####[facility] [address] [place], [address] ALK PHOS 126 U/L High 35-104 [facility] Comment on above: Performed By: #### L 100.0500, L500.4050 ####[facility] [address] [place], [address] ALT [Catalytic activity/Vol] 93 U/L High <=34 [facility] Comment on above: Performed By: #### L 100.0500, L500.4050 ####[facility] [address] [place], [address] AST [Catalytic activity/Vol] 130 U/L High <=31 [facility] Comment on above: Result Comment: Hemo lysis present, Results??could be affected.?? Performed By: #### L 100.0500, L500.4050 ####[facility] [address] [place], [address] Bilirubin [Mass/Vol] 0.42 mg/dL Normal 0.00-1.30 [facility] Comment on above: Performed By: #### L 100.0500, L500.4050 ####[facility] [address] [place], [address] BUN/CRE 36.5 RATIO High 10-20 [facility] Comment on above: Performed By: #### L 100.0500, L500.4050 ####[facility] [address] [place], [address] Calcium [Mass/Vol] 9.8 mg/dL Normal 7.6-11.0 [facility] Comment on above: Performed By: #### L 100.0500, L500.4050 ####[facility] [address] [place], [address] Chloride [Moles/Vol] 94 mmol/L Low 98-108 [facility] Comment on above: Performed By: #### L 100.0500, L500.4050 ####[facility] [address] [place], [address] CO2 [Moles/Vol] 24.4 mmol/L Normal 21.0-32.0 [facility] Comment on above: Performed By: #### L 100.0500, L500.4050 ####[facility] [address] [place], [address] Creatinine [Mass/Vol] 1.46 mg/dL High 0.70-1.20 [facility] Comment on above: Performed By: #### L 100.0500, L500.4050 ####[facility] [address] [place], [address] GAP 12 Normal 5-15 [facility] Comment on above: Performed By: #### L 100.0500, L500.4050 ####[facility] [address] [place], [address] GFR/1.73 sq M.predicted among non-blacks MDRD (S/P/Bld) [Vol rate/Area] 40 mL/min/{1.73_m2} Low >60 [facility] Comment on above: Result Comment: mL/m in/1.73m2 CKD-EPI Creatinine Equation (2020) Performed By: #### L 100.0500, L500.4050 ####[facility] [address] [place], [address] Globulin (S) [Mass/Vol] 5.0 g/dL High 2.2-4.2 [facility] Comment on above: Performed By: #### L 100.0500, L500.4050 ####[facility] [address] [place], [address] Glucose [Mass/Vol] 85 mg/dL Normal 70-99 [facility] Comment on above: Performed By: #### L 100.0500, L500.4050 ####[facility] [address] [place], [address] Potassium [Moles/Vol] 4.8 mmol/L Normal 3.3-5.1 [facility] Comment on above: Result Comment: Hemo lysis present, Results??could be affected.?? Performed By: #### L 100.0500, L500.4050 ####[facility] [address] [place], [address] Sodium [Moles/Vol] 130 mmol/L Low 133-145 [facility] Comment on above: Performed By: #### L 100.0500, L500.4050 ####[facility] [address] [place], [address] T PROT 7.7 g/dL Normal 5.9-8.4 [facility] Comment on above: Performed By: #### L 100.0500, L500.4050 ####[facility] [address] [place], [place], [id number] Urea nitrogen [Mass/Vol] 53 mg/dL High 4-19 [facility] Comment on above: Performed By: #### L 100.0500, L500.4050 ####[facility] [address] [place], [place], [id number] Erythrocyte distribution wid th ratioOrdered By: Millie Massey on 09-16-2024 Erythrocyte distribution width (RBC) [Ratio] 19.6 % High 11.6-14.6 [facility] Erythrocyte distribution wid th standard deviationOrdered By: Millie Massey on 09-16-2024 Erythrocyte distribution width (RBC) [Ratio] 65.9 fl High 35.1-43.9 [facility] Glomerular filtration rate ( GFR) estimation/1.73 sq m using serum, plasma, or whole bOrdered By: Millie Massey on 09-16-2024 GFR/1.73 sq M.predicted among non-blacks MDRD (S/P/Bld) [Vol rate/Area] 40 mL/min/{1.73_m2} Low >60 [facility] Hematocrit Auto (Bld) [Volum e fraction]Ordered By: Millie Massey on 09-16-2024 Hematocrit (Bld) [Volume fraction] 29.2 % Low 37-47 [facility] Hemoglobin measurementOrdere d By: Millie Massey on 09-16-2024 Hemoglobin (Bld) [Mass/Vol] 8.4 g/dL Low 12.0-15.0 [facility] MCV (mean corpuscular volume ) determinationOrdered By: Millie Massey on 09-16-2024 MCV (RBC) [Entitic vol] 93.3 fL 81-99 [facility] Mean corpuscular hemoglobin (MCH) determinationOrdered By: Millie Massey on 09-16-2024 MCH (RBC) [Entitic mass] 26.8 pg Low 27.0-32.0 [facility] No Panel InformationOrdered By: Millie Massey on 09-16-2024 130 U/L High <32 [facility] Platelet countOrdered By: Carter Massey on 09-16-2024 Platelets (Bld) [#/Vol] 180 10*3/uL 150-450 [facility] Potassium measurement (mass/ volume)Ordered By: Millie Massey on 09-16-2024 Potassium (Unsp spec) [Mass/Vol] 4.8 mmol/L 3.3-5.1 [facility] RBC Auto (Bld) [#/Vol]Ordere d By: Millie Massey on 09-16-2024 RBC (Bld) [#/Vol] 3.13 10*6/uL Low 4.2-5.4 [facility] Serum creatinine measurement (mass/volume)Ordered By: Millie Massey on 09-16-2024 Creatinine [Mass/Vol] 1.46 mg/dL High 0.70-1.20 [facility] Serum globulin measurementOr dered By: Millie Massey on 09-16-2024 Globulin (S) [Mass/Vol] 5.0 g/dL High 2.2-4.2 [facility] Serum glucose measurement (m ass/volume)Ordered By: Millie Massey on 09-16-2024 Glucose [Mass/Vol] 85 mg/dL 70-99 [facility] Serum or plasma alanine camargo otransferase (ALT) measurementOrdered By: Millie Massey on 09-16-2024 ALT [Catalytic activity/Vol] 93 U/L High <35 [facility] Serum or plasma albumin megan urement (mass/volume)Ordered By: Millie Massey on 09-16-2024 Albumin [Mass/Vol] 2.8 g/dL Low 3.4-4.8 [facility] Serum or plasma albumin/glob ulin mass ratioOrdered By: Millie Massey on 09-16-2024 Albumin/Globulin [Mass ratio] 0.6 {ratio} Low 0.9-2.4 [facility] Serum or plasma alkaline susan sphatase measurementOrdered By: Millie Massey on 09-16-2024 ALP [Catalytic activity/Vol] 126 U/L High 35-104 [facility] Serum or plasma calcium megan urement (mass/volume)Ordered By: Millie Massey on 09-16-2024 Calcium [Mass/Vol] 9.8 mg/dL 7.6-11.0 [facility] Serum or plasma urea nitroge n measurement (mass/volume)Ordered By: Millie Massey on 09-16-2024 Urea nitrogen [Mass/Vol] 53 mg/dL High 4-19 [facility] Sodium levelOrdered By: Silvana Massey on 09-16-2024 Sodium [Moles/Vol] 130 mmol/L Low 133-145 [facility] Total proteinOrdered By: Lesli Massey on 09-16-2024 Protein [Mass/Vol] 7.7 g/dL 5.9-8.4 [facility] White blood cell (WBC) count Ordered By: Millie Massey on 09-16-2024 WBC (Bld) [#/Vol] 7.5 10*3/uL 4.4-11.0 [facility] 12 Lead EKGon 09-15-2024 12 Lead EKG Normal [facility] Absolute lymphocyte countOrd ered By: Constantin Jain on 09-15-2024 Lymphocytes Auto (Unsp spec) [#/Vol] 0.64 10*3/uL Low 0.83-4.51 [facility] Absolute neutrophil countOrd ered By: Constantin Jain on 09-15-2024 Absolute neutrophil count 7.8 X10^3/uL High 2.0-7.7 [facility] Anion gap [Moles/Vol]Ordered By: Constantin Jain on 09-15-2024 Anion gap in Serum or Plasma 10 5-15 [facility] Anion gap in Serum or Plasma Ordered By: Constantin Jain on 09-15-2024 Anion gap [Moles/Vol] 10 mmol/L 5-15 [facility] Automated lymphocyte count a s percentage of total leukocytesOrdered By: Constantin Jain on 09-15-2024 Lymphocytes/100 WBC Auto (Unsp spec) 6.9 % Low 19-41 [facility] BUN/creatinine ratioOrdered By: Constantin Jain on 09-15-2024 Urea nitrogen/Creatinine [Mass ratio] 34.6 mg/mg High [facility] BUN/creatinine ratio 34.6 RATIO High [facility] Basic Metabolic Profile (BMP )on 09-15-2024 BUN/CRE 34.6 RATIO High - [facility] Comment on above: Performed By: #### L 500.2500, L501.4021, L100.0100 ####[facility] [address] [place], [address] Calcium [Mass/Vol] 9.1 mg/dL Normal 7.6-11.0 [facility] Comment on above: Performed By: #### L 500.2500, L501.4021, L100.0100 ####[facility] [address] [place], [address] Chloride [Moles/Vol] 96 mmol/L Low 98-108 [facility] Comment on above: Performed By: #### L 500.2500, L501.4021, L100.0100 ####[facility] [address] [place], [address] CO2 [Moles/Vol] 27.3 mmol/L Normal 21.0-32.0 [facility] Comment on above: Performed By: #### L 500.2500, L501.4021, L100.0100 ####[facility] [address] [place], [address] Creatinine [Mass/Vol] 1.14 mg/dL Normal 0.70-1.20 [facility] Comment on above: Performed By: #### L 500.2500, L501.4021, L100.0100 ####[facility] [address] [place], [address] ECRCL 44.59 ml/min Low 50-250 [facility] Comment on above: Performed By: #### L 500.2500, L501.4021, L100.0100 ####[facility] [address] [place], [address] GAP 10 Normal 5-15 [facility] Comment on above: Performed By: #### L 500.2500, L501.4021, L100.0100 ####[facility] [address] [place], [address] GFR/1.73 sq M.predicted among non-blacks MDRD (S/P/Bld) [Vol rate/Area] 54 mL/min/{1.73_m2} Low >60 [facility] Comment on above: Result Comment: mL/m in/1.73m2 CKD-EPI Creatinine Equation (2020) Performed By: #### L 500.2500, L501.4021, L100.0100 ####[facility] [address] [place], [address] Glucose [Mass/Vol] 103 mg/dL High 70-99 [facility] Comment on above: Performed By: #### L 500.2500, L501.4021, L100.0100 ####[facility] [address] [place], [address] Potassium [Moles/Vol] 4.3 mmol/L Normal 3.3-5.1 [facility] Comment on above: Result Comment: Hemo lysis present, Results??could be affected.?? Performed By: #### L 500.2500, L501.4021, L100.0100 ####[facility] [address] [place], [address] Sodium [Moles/Vol] 133 mmol/L Normal 133-145 [facility] Comment on above: Performed By: #### L 500.2500, L501.4021, L100.0100 ####[facility] [address] [place], [address] Urea nitrogen [Mass/Vol] 40 mg/dL High 4-19 [facility] Comment on above: Performed By: #### L 500.2500, L501.4021, L100.0100 ####[facility] [address] [place], [address] Basophil percentageOrdered B y: Constantin Jain on 09-15-2024 Basophils/100 WBC (Bld) 0.3 % 0-1 [facility] Basophil percentage 0.3 % 0-1 [facility] CBC W/Diff, Automatedon 08-28-2024 Absolute Lymph 0.64 X10 3/uL Low 0.83-4.51 [facility] Comment on above: Performed By: #### L 500.2500, L501.4021, L100.0100 ####[facility] [address] [place], [address] Absolute Neut 7.8 X10 3/uL High 2.0-7.7 [facility] Comment on above: Performed By: #### L 500.2500, L501.4021, L100.0100 ####[facility] [address] [place], [address] Basophils/100 WBC (Bld) 0.3 % Normal 0-1 [facility] Comment on above: Performed By: #### L 500.2500, L501.4021, L100.0100 ####[facility] [address] [place], [address] Eosinophils/100 WBC (Bld) 1.5 % Normal 0-5 [facility] Comment on above: Performed By: #### L 500.2500, L501.4021, L100.0100 ####[facility] [address] [place], [address] Erythrocyte distribution width (RBC) [Ratio] 19.0 % High 11.6-14.6 [facility] Comment on above: Performed By: #### L 500.2500, L501.4021, L100.0100 ####[facility] [address] [place], [address] Hematocrit (Bld) [Volume fraction] 27.5 % Low 37-47 [facility] Comment on above: Performed By: #### L 500.2500, L501.4021, L100.0100 ####[facility] [address] [place], [address] Hemoglobin (Bld) [Mass/Vol] 8.3 g/dL Low 12.0-15.0 [facility] Comment on above: Performed By: #### L 500.2500, L501.4021, L100.0100 ####[facility] [address] [place], [address] IG% 1.100 High 0.0-0.9 [facility] Comment on above: Result Comment: IG% - Immature Granulocytes (promyelocytes, myelocytes andmetamyelocytes) > 1% indicates that a LEFT SHIFT is Present. Performed By: #### L 500.2500, L501.4021, L100.0100 ####[facility] [address] [place], [address] Lymphocytes/100 WBC (Bld) 6.9 % Low 19-41 [facility] Comment on above: Performed By: #### L 500.2500, L501.4021, L100.0100 ####[facility] [address] [place], [address] MCH (RBC) [Entitic mass] 27.5 pg Normal 27.0-32.0 [facility] Comment on above: Performed By: #### L 500.2500, L501.4021, L100.0100 ####[facility] [address] [place], [address] MCHC (RBC) [Mass/Vol] 30.2 g/dL Low 32-36 [facility] Comment on above: Performed By: #### L 500.2500, L501.4021, L100.0100 ####[facility] [address] [place], [address] MCV (RBC) [Entitic vol] 91.1 fL Normal 81-99 [facility] Comment on above: Performed By: #### L 500.2500, L501.4021, L100.0100 ####[facility] [address] [place], [address] Monocytes/100 WBC (Bld) 6.1 % Normal 0-10 [facility] Comment on above: Performed By: #### L 500.2500, L501.4021, L100.0100 ####[facility] [address] [place], [address] Neutrophils/100 WBC (Bld) 84.1 % High 47-70 [facility] Comment on above: Performed By: #### L 500.2500, L501.4021, L100.0100 ####[facility] [address] [place], [address] Nucleated RBC (Bld) [#/Vol] 0 10*3/uL Normal 0-5 [facility] Comment on above: Performed By: #### L 500.2500, L501.4021, L100.0100 ####[facility] [address] [place], [address] Platelet mean volume (Bld) [Entitic vol] 10.0 fL Normal 6.2-12.0 [facility] Comment on above: Performed By: #### L 500.2500, L501.4021, L100.0100 ####[facility] [address] [place], [address] Platelets (Bld) [#/Vol] 198 10*3/uL Normal 150-450 [facility] Comment on above: Performed By: #### L 500.2500, L501.4021, L100.0100 ####[facility] [address] [place], [address] RBC (Bld) [#/Vol] 3.02 10*6/uL Low 4.2-5.4 [facility] Comment on above: Performed By: #### L 500.2500, L501.4021, L100.0100 ####[facility] [address] [place], [address] RDW SD 62.7 fl High 35.1-43.9 [facility] Comment on above: Performed By: #### L 500.2500, L501.4021, L100.0100 ####[facility] [address] [place], [address] WBC (Bld) [#/Vol] 9.3 10*3/uL Normal 4.4-11.0 [facility] Comment on above: Performed By: #### L 500.2500, L501.4021, L100.0100 ####[facility] [address] [place], [address] Calcium [Mass/Vol]Ordered By : Constantin Jain on 09-15-2024 Serum or plasma calcium measurement (mass/volume) 9.1 mg/dL 7.6-11.0 [facility] Carbon dioxide, total [Moles /volume] in Central venous bloodOrdered By: Constantin Jain on 09-15-2024 CO2 [Moles/Vol] 27.3 mmol/L 21.0-32.0 [facility] Carbon dioxide, total [Moles/volume] in Central venous blood 27.3 mmol/L 21.0-32.0 [facility] Chest 1 View (Portable)on Chest 1 View (Portable) Normal [facility] Chloride assayOrdered By: Tacos Jain on 09-15-2024 Chloride [Moles/Vol] 96 mmol/L Low 98-108 [facility] Chloride assay 96 mmol/L Low 98-108 [facility] Creatinine [Mass/Vol]Ordered By: Constantin Jain on 09-15-2024 Serum creatinine measurement (mass/volume) 1.14 mg/dL 0.70-1.20 [facility] Emergency Department Summary on 09-15-2024 Emergency Department Summary Normal [facility] Eosinophil percentageOrdered By: Constantin Jain on 09-15-2024 Eosinophils/100 WBC (Bld) 1.5 % 0-5 [facility] Eosinophil percentage 1.5 % 0-5 [facility] Erythrocyte distribution wid th (RBC) [Ratio]Ordered By: Constantin Jain on 09-15-2024 Erythrocyte distribution width ratio 19.0 % High 11.6-14.6 [facility] Erythrocyte distribution width standard deviation 62.7 fl High 35.1-43.9 [facility] Erythrocyte distribution wid th ratioOrdered By: Constantin Jain on 09-15-2024 Erythrocyte distribution width (RBC) [Ratio] 19.0 % High 11.6-14.6 [facility] Erythrocyte distribution wid th standard deviationOrdered By: Constantin Jain on 09-15-2024 Erythrocyte distribution width (RBC) [Ratio] 62.7 fl High 35.1-43.9 [facility] Estimation of creatinine austen aranceOrdered By: Constantin Jain on 09-15-2024 Estimation of creatinine clearance 44.59 ml/min Low 50-250 [facility] GFR/1.73 sq M.predicted víctor g non-blacks MDRD (S/P/Bld) [Vol rate/Area]Ordered By: Constantin Jain on 09-15-2024 Glomerular filtration rate (GFR) estimation/1.73 sq m using serum, plasma, or whole b 54 Low >60 [facility] Glomerular filtration rate ( GFR) estimation/1.73 sq m using serum, plasma, or whole bOrdered By: Constantin Jain on 09-15-2024 GFR/1.73 sq M.predicted among non-blacks MDRD (S/P/Bld) [Vol rate/Area] 54 mL/min/{1.73_m2} Low >60 [facility] Glucose [Mass/Vol]Ordered By : Constantin Jain on 09-15-2024 Serum glucose measurement (mass/volume) 103 mg/dL High 70-99 [facility] Hematocrit Auto (Bld) [Volum e fraction]Ordered By: Constantin Jain on 09-15-2024 Hematocrit (Bld) [Volume fraction] 27.5 % Low 37-47 [facility] Automated blood hematocrit (percentage) 27.5 % Low 37-47 [facility] Hemoglobin measurementOrdere d By: Constantin Jain on 09-15-2024 Hemoglobin (Bld) [Mass/Vol] 8.3 g/dL Low 12.0-15.0 [facility] Hemoglobin measurement 8.3 g/dL Low 12.0-15.0 [facility] Immature granulocytes/100 WB C Auto (Bld)Ordered By: Constantiniqra Jain on 09-15-2024 Immature granulocytes/100 WBC (Bld) 1.100 % High 0.0-0.9 [facility] Automated immature granulocyte percentage 1.100 % High 0.0-0.9 [facility] L499.0042on 09-15-2024 Trop T High Sen 273 ng/L Invalid Interpretation Code <=14 [facility] Comment on above: Result Comment: Crit ical Result(s) Called to Tu MEJIA (ER): Reyr:??Results read back by same. Performed By: #### L 499.0042 ####[facility] [address] [place], [address] L499.0043on 09-15-2024 Trop T High Sen Normal <=14 [facility] Comment on above: Result Comment: Canc elled via OM: Order cancelled - Patient discharged Performed By: #### L 499.0043 ####[facility] [address] [place], [address] L501.4021on 09-15-2024 Trop T High Sen 256 ng/L Invalid Interpretation Code <=14 [facility] Comment on above: Result Comment: Crit ical Result(s) Called at: 0515 by:??WALTER HAVEN TO LEXISCHAFER Results read back by same. Performed By: #### L 500.2500, L501.4021, L100.0100 ####[facility] [address] [place], [address] Lymphocytes Auto (Unsp spec) [#/Vol]Ordered By: Constantin Jain on 09-15-2024 Absolute lymphocyte count 0.64 X10^3/uL Low 0.83-4.51 [facility] Lymphocytes/100 WBC Auto (Un sp spec)Ordered By: Constantin Jain on 09-15-2024 Automated lymphocyte count as percentage of total leukocytes 6.9 % Low 19-41 [facility] MCV (RBC) [Entitic vol]Order ed By: Constantin Jain on 09-15-2024 MCV (mean corpuscular volume) determination 91.1 fL 81-99 [facility] MCV (mean corpuscular volume ) determinationOrdered By: Constantin Jain on 09-15-2024 MCV (RBC) [Entitic vol] 91.1 fL 81-99 [facility] Mean corpuscular hemoglobin (MCH) determinationOrdered By: Constantin Jain on 09-15-2024 MCH (RBC) [Entitic mass] 27.5 pg 27.0-32.0 [facility] Mean corpuscular hemoglobin (MCH) determination 27.5 pg 27.0-32.0 [facility] Mean corpuscular hemoglobin concentration (MCHC) determinationOrdered By: Constantin Jain on 09-15-2024 Mean corpuscular hemoglobin concentration (MCHC) determination 30.2 g/dL Low 32-36 [facility] Mean platelet volume determi nationOrdered By: Constantin Jain on 09-15-2024 Mean platelet volume determination 10.0 fl 6.2-12.0 [facility] Monocyte percentageOrdered B y: Constantin Jain on 09-15-2024 Monocytes/100 WBC (Bld) 6.1 % 0-10 [facility] Monocyte percentage 6.1 % 0-10 [facility] Neutrophil percentageOrdered By: Constantin Jain on 09-15-2024 Neutrophils/100 WBC (Bld) 84.1 % High 47-70 [facility] Neutrophil percentage 84.1 % High 47-70 [facility] Nucleated red blood cell per centageOrdered By: Constantin Jain on 09-15-2024 Nucleated red blood cell percentage 0 % 0-5 [facility] Platelet countOrdered By: Tacos Jain on 09-15-2024 Platelets (Bld) [#/Vol] 198 10*3/uL 150-450 [facility] Platelet count 198 K/mm3 150-450 [facility] Potassium (Unsp spec) [Mass/ Vol]Ordered By: Constantin Jain on 09-15-2024 Potassium measurement (mass/volume) 4.3 mmol/L 3.3-5.1 [facility] Potassium measurement (mass/ volume)Ordered By: Constantin Jain on 09-15-2024 Potassium (Unsp spec) [Mass/Vol] 4.3 mmol/L 3.3-5.1 [facility] RBC Auto (Bld) [#/Vol]Ordere d By: Constantin Jain on 09-15-2024 RBC (Bld) [#/Vol] 3.02 10*6/uL Low 4.2-5.4 [facility] Automated blood erythrocyte count 3.02 M/mm3 Low 4.2-5.4 [facility] Serum creatinine measurement (mass/volume)Ordered By: Constantin Jain on 09-15-2024 Creatinine [Mass/Vol] 1.14 mg/dL 0.70-1.20 [facility] Serum glucose measurement (m ass/volume)Ordered By: Constantin Jain on 09-15-2024 Glucose [Mass/Vol] 103 mg/dL High 70-99 [facility] Serum or plasma calcium megan urement (mass/volume)Ordered By: Constantin Jain on 09-15-2024 Calcium [Mass/Vol] 9.1 mg/dL 7.6-11.0 [facility] Serum or plasma urea nitroge n measurement (mass/volume)Ordered By: Constantin Jain on 09-15-2024 Urea nitrogen [Mass/Vol] 40 mg/dL High 4-19 [facility] Sodium levelOrdered By: Nile Jain on 09-15-2024 Sodium [Moles/Vol] 133 mmol/L 133-145 [facility] Sodium level 133 mmol/L 133-145 [facility] Troponin T.cardiac High sens itivity method [Mass/Vol]Ordered By: Constantin Jain on 09-15-2024 Troponin T.cardiac [Mass/volume] in Serum or Plasma by High sensitivity method 273 ng/L High <14 [facility] Troponin T.cardiac [Mass/volume] in Serum or Plasma by High sensitivity method 256 ng/L High <14 [facility] Troponin T.cardiac [Mass/vol ume] in Serum or Plasma by High sensitivity methodOrdered By: Constantin Jain on 09-15-2024 Troponin T.cardiac High sensitivity method [Mass/Vol] 273 ng/L High <14 [facility] Troponin T.cardiac High sensitivity method [Mass/Vol] 256 ng/L High <14 [facility] Urea nitrogen [Mass/Vol]Orde red By: Constantin Jain on 09-15-2024 Serum or plasma urea nitrogen measurement (mass/volume) 40 mg/dL High 4-19 [facility] White blood cell (WBC) count Ordered By: Constantin Jain on 09-15-2024 WBC (Bld) [#/Vol] 9.3 10*3/uL 4.4-11.0 [facility] White blood cell (WBC) count 9.3 K/mm3 4.4-11.0 [facility] ALP [Catalytic activity/Vol] Ordered By: Millie Massey on 09-09-2024 Serum or plasma alkaline phosphatase measurement 93 U/L 35-104 [facility] ALT [Catalytic activity/Vol] Ordered By: Millie Massey on 09-09-2024 Serum or plasma alanine aminotransferase (ALT) measurement 26 U/L <35 [facility] Albumin [Mass/Vol]Ordered By : Millie Massye on 09-09-2024 Serum or plasma albumin measurement (mass/volume) 2.4 g/dL Low 3.4-4.8 [facility] Albumin/Globulin [Mass ratio ]Ordered By: Millie Massey on 09-09-2024 Serum or plasma albumin/globulin mass ratio 0.6 RATIO Low 0.9-2.4 [facility] Anion gap [Moles/Vol]Ordered By: Millie Massey on 09-09-2024 Anion gap in Serum or Plasma 8 5-15 [facility] Anion gap in Serum or Plasma Ordered By: Millie Massey on 09-09-2024 Anion gap [Moles/Vol] 8 mmol/L 5-15 [facility] BUN/creatinine ratioOrdered By: Millie Massey on 09-09-2024 Urea nitrogen/Creatinine [Mass ratio] 36.3 mg/mg High 10-20 [facility] BUN/creatinine ratio 36.3 RATIO High 10-20 [facility] Bilirubin, totalOrdered By: Millie Massey on 09-09-2024 Bilirubin [Mass/Vol] 0.24 mg/dL 0.00-1.30 [facility] Bilirubin, total 0.24 mg/dL 0.00-1.30 [facility] CBC-Complete Blood Cnt No Di ffon 09-09-2024 Erythrocyte distribution width (RBC) [Ratio] 18.6 % High 11.6-14.6 [facility] Comment on above: Performed By: #### L 100.0500, L501.5200, L500.4050 ####[facility] [address] [place], [address] Hematocrit (Bld) [Volume fraction] 31.4 % Low 37-47 [facility] Comment on above: Performed By: #### L 100.0500, L501.5200, L500.4050 ####[facility] [address] [place], [address] Hemoglobin (Bld) [Mass/Vol] 9.4 g/dL Low 12.0-15.0 [facility] Comment on above: Performed By: #### L 100.0500, L501.5200, L500.4050 ####[facility] [address] [place], [address] MCH (RBC) [Entitic mass] 27.0 pg Normal 27.0-32.0 [facility] Comment on above: Performed By: #### L 100.0500, L501.5200, L500.4050 ####[facility] [address] [place], [address] MCHC (RBC) [Mass/Vol] 29.9 g/dL Low 32-36 [facility] Comment on above: Performed By: #### L 100.0500, L501.5200, L500.4050 ####[facility] [address] [place], [address] MCV (RBC) [Entitic vol] 90.2 fL Normal 81-99 [facility] Comment on above: Performed By: #### L 100.0500, L501.5200, L500.4050 ####[facility] [address] [place], [address] Platelet mean volume (Bld) [Entitic vol] 10.1 fL Normal 6.2-12.0 [facility] Comment on above: Performed By: #### L 100.0500, L501.5200, L500.4050 ####[facility] [address] [place], [address] Platelets (Bld) [#/Vol] 183 10*3/uL Normal 150-450 [facility] Comment on above: Performed By: #### L 100.0500, L501.5200, L500.4050 ####[facility] [address] [place], [address] RBC (Bld) [#/Vol] 3.48 10*6/uL Low 4.2-5.4 [facility] Comment on above: Performed By: #### L 100.0500, L501.5200, L500.4050 ####[facility] [address] [place], [address] RDW SD 61.3 fl High 35.1-43.9 [facility] Comment on above: Performed By: #### L 100.0500, L501.5200, L500.4050 ####[facility] [address] [place], [address] WBC (Bld) [#/Vol] 3.8 10*3/uL Low 4.4-11.0 [facility] Comment on above: Performed By: #### L 100.0500, L501.5200, L500.4050 ####[facility] [address] [place], [address] Calcium [Mass/Vol]Ordered By : Millie Massey on 09-09-2024 Serum or plasma calcium measurement (mass/volume) 8.8 mg/dL 7.6-11.0 [facility] Carbon dioxide, total [Moles /volume] in Central venous bloodOrdered By: Millie Massey on 09-09-2024 CO2 [Moles/Vol] 30.2 mmol/L 21.0-32.0 [facility] Carbon dioxide, total [Moles/volume] in Central venous blood 30.2 mmol/L 21.0-32.0 [facility] Chloride assayOrdered By: Carter Massey on 09-09-2024 Chloride [Moles/Vol] 96 mmol/L Low 98-108 [facility] Chloride assay 96 mmol/L Low 98-108 [facility] Comprehensive Metabolic Prof ilon 09-09-2024 Albumin [Mass/Vol] 2.4 g/dL Low 3.4-4.8 [facility] Comment on above: Performed By: #### L 100.0500, L501.5200, L500.4050 ####[facility] [address] [place], [address] Albumin/Globulin [Mass ratio] 0.6 {ratio} Low 0.9-2.4 [facility] Comment on above: Performed By: #### L 100.0500, L501.5200, L500.4050 ####[facility] [address] [place], [address] ALK PHOS 93 U/L Normal 35-104 [facility] Comment on above: Performed By: #### L 100.0500, L501.5200, L500.4050 ####[facility] [address] [place], [address] ALT [Catalytic activity/Vol] 26 U/L Normal <=34 [facility] Comment on above: Performed By: #### L 100.0500, L501.5200, L500.4050 ####[facility] [address] [place], [address] AST [Catalytic activity/Vol] 54 U/L High <=31 [facility] Comment on above: Performed By: #### L 100.0500, L501.5200, L500.4050 ####[facility] [address] [place], [address] Bilirubin [Mass/Vol] 0.24 mg/dL Normal 0.00-1.30 [facility] Comment on above: Performed By: #### L 100.0500, L501.5200, L500.4050 ####[facility] [address] [place], [address] BUN/CRE 36.3 RATIO High 10-20 [facility] Comment on above: Performed By: #### L 100.0500, L501.5200, L500.4050 ####[facility] [address] [place], [address] Calcium [Mass/Vol] 8.8 mg/dL Normal 7.6-11.0 [facility] Comment on above: Performed By: #### L 100.0500, L501.5200, L500.4050 ####[facility] [address] [place], [address] Chloride [Moles/Vol] 96 mmol/L Low 98-108 [facility] Comment on above: Performed By: #### L 100.0500, L501.5200, L500.4050 ####[facility] [address] [place], [address] CO2 [Moles/Vol] 30.2 mmol/L Normal 21.0-32.0 [facility] Comment on above: Performed By: #### L 100.0500, L501.5200, L500.4050 ####[facility] [address] [place], [address] Creatinine [Mass/Vol] 1.35 mg/dL High 0.70-1.20 [facility] Comment on above: Performed By: #### L 100.0500, L501.5200, L500.4050 ####[facility] [address] [place], [address] GAP 8 Normal 5-15 [facility] Comment on above: Performed By: #### L 100.0500, L501.5200, L500.4050 ####[facility] [address] [place], [address] GFR/1.73 sq M.predicted among non-blacks MDRD (S/P/Bld) [Vol rate/Area] 44 mL/min/{1.73_m2} Low >60 [facility] Comment on above: Result Comment: mL/m in/1.73m2 CKD-EPI Creatinine Equation (2020) Performed By: #### L 100.0500, L501.5200, L500.4050 ####[facility] [address] [place], [address] Globulin (S) [Mass/Vol] 3.7 g/dL Normal 2.2-4.2 [facility] Comment on above: Performed By: #### L 100.0500, L501.5200, L500.4050 ####[facility] [address] [place], [address] Glucose [Mass/Vol] 115 mg/dL High 70-99 [facility] Comment on above: Performed By: #### L 100.0500, L501.5200, L500.4050 ####[facility] [address] [place], [address] Potassium [Moles/Vol] 3.1 mmol/L Low 3.3-5.1 [facility] Comment on above: Performed By: #### L 100.0500, L501.5200, L500.4050 ####[facility] [address] [place], [address] Sodium [Moles/Vol] 133 mmol/L Normal 133-145 [facility] Comment on above: Performed By: #### L 100.0500, L501.5200, L500.4050 ####[facility] [address] [place], [address] T PROT 6.1 g/dL Normal 5.9-8.4 [facility] Comment on above: Performed By: #### L 100.0500, L501.5200, L500.4050 ####[facility] [address] [place], [address] Urea nitrogen [Mass/Vol] 49 mg/dL High 4-19 [facility] Comment on above: Performed By: #### L 100.0500, L501.5200, L500.4050 ####[facility] [address] [place], [address] Creatinine [Mass/Vol]Ordered By: Millie Massey on 09-09-2024 Serum creatinine measurement (mass/volume) 1.35 mg/dL High 0.70-1.20 [facility] Erythrocyte distribution wid th (RBC) [Ratio]Ordered By: Millie Massey on 09-09-2024 Erythrocyte distribution width ratio 18.6 % High 11.6-14.6 [facility] Erythrocyte distribution width standard deviation 61.3 fl High 35.1-43.9 [facility] Erythrocyte distribution wid th ratioOrdered By: Millie Massey on 09-09-2024 Erythrocyte distribution width (RBC) [Ratio] 18.6 % High 11.6-14.6 [facility] Erythrocyte distribution wid th standard deviationOrdered By: Millie Massey on 09-09-2024 Erythrocyte distribution width (RBC) [Ratio] 61.3 fl High 35.1-43.9 [facility] GFR/1.73 sq M.predicted víctor g non-blacks MDRD (S/P/Bld) [Vol rate/Area]Ordered By: Millie Massey on 09-09-2024 Glomerular filtration rate (GFR) estimation/1.73 sq m using serum, plasma, or whole b 44 Low >60 [facility] Glomerular filtration rate ( GFR) estimation/1.73 sq m using serum, plasma, or whole bOrdered By: Millie Massey on 09-09-2024 GFR/1.73 sq M.predicted among non-blacks MDRD (S/P/Bld) [Vol rate/Area] 44 mL/min/{1.73_m2} Low >60 [facility] Glucose [Mass/Vol]Ordered By : Millie Massey on 09-09-2024 Serum glucose measurement (mass/volume) 115 mg/dL High 70-99 [facility] Hematocrit Auto (Bld) [Volum e fraction]Ordered By: Millie Massey on 09-09-2024 Hematocrit (Bld) [Volume fraction] 31.4 % Low 37-47 [facility] Automated blood hematocrit (percentage) 31.4 % Low 37-47 [facility] Hemoglobin measurementOrdere d By: Millie Massey on 09-09-2024 Hemoglobin (Bld) [Mass/Vol] 9.4 g/dL Low 12.0-15.0 [facility] Hemoglobin measurement 9.4 g/dL Low 12.0-15.0 [facility] MCV (RBC) [Entitic vol]Order ed By: Millie Massey on 09-09-2024 MCV (mean corpuscular volume) determination 90.2 fL 81-99 [facility] MCV (mean corpuscular volume ) determinationOrdered By: Millie Massey on 09-09-2024 MCV (RBC) [Entitic vol] 90.2 fL 81-99 [facility] Magnesiumon 09-09-2024 Magnesium [Mass/Vol] 2.0 mg/dL Normal 1.5-2.2 [facility] Comment on above: Performed By: #### L 100.0500, L501.5200, L500.4050 ####[facility] [address] [place], [address] Magnesium (Unsp spec) [Mass/ Vol]Ordered By: Millie Massey on 09-09-2024 Magnesium measurement (mass/volume) 2.0 mg/dL 1.5-2.2 [facility] Magnesium measurement (mass/ volume)Ordered By: Millie Massey on 09-09-2024 Magnesium (Unsp spec) [Mass/Vol] 2.0 mg/dL 1.5-2.2 [facility] Mean corpuscular hemoglobin (MCH) determinationOrdered By: Millie Massey on 09-09-2024 MCH (RBC) [Entitic mass] 27.0 pg 27.0-32.0 [facility] Mean corpuscular hemoglobin (MCH) determination 27.0 pg 27.0-32.0 [facility] Mean corpuscular hemoglobin concentration (MCHC) determinationOrdered By: Millie Massey on 09-09-2024 Mean corpuscular hemoglobin concentration (MCHC) determination 29.9 g/dL Low 32-36 [facility] Mean platelet volume determi nationOrdered By: Millie Massey on 09-09-2024 Mean platelet volume determination 10.1 fl 6.2-12.0 [facility] No Panel InformationOrdered By: Millie Massey on 09-09-2024 54 U/L High <32 [facility] Platelet countOrdered By: Carter Massey on 09-09-2024 Platelets (Bld) [#/Vol] 183 10*3/uL 150-450 [facility] Platelet count 183 K/mm3 150-450 [facility] Potassium (Unsp spec) [Mass/ Vol]Ordered By: Millie Massey on 09-09-2024 Potassium measurement (mass/volume) 3.1 mmol/L Low 3.3-5.1 [facility] Potassium measurement (mass/ volume)Ordered By: Millie Massey on 09-09-2024 Potassium (Unsp spec) [Mass/Vol] 3.1 mmol/L Low 3.3-5.1 [facility] RBC Auto (Bld) [#/Vol]Ordere d By: Millie Massey on 09-09-2024 RBC (Bld) [#/Vol] 3.48 10*6/uL Low 4.2-5.4 [facility] Automated blood erythrocyte count 3.48 M/mm3 Low 4.2-5.4 [facility] Serum creatinine measurement (mass/volume)Ordered By: Millie Massey on 09-09-2024 Creatinine [Mass/Vol] 1.35 mg/dL High 0.70-1.20 [facility] Serum globulin measurementOr dered By: Millie Massey on 09-09-2024 Globulin (S) [Mass/Vol] 3.7 g/dL 2.2-4.2 [facility] Serum globulin measurement 3.7 g/dL 2.2-4.2 [facility] Serum glucose measurement (m ass/volume)Ordered By: Millie Massey on 09-09-2024 Glucose [Mass/Vol] 115 mg/dL High 70-99 [facility] Serum or plasma alanine camargo otransferase (ALT) measurementOrdered By: Millie Massey on 09-09-2024 ALT [Catalytic activity/Vol] 26 U/L <35 [facility] Serum or plasma albumin megan urement (mass/volume)Ordered By: Millie Massey on 09-09-2024 Albumin [Mass/Vol] 2.4 g/dL Low 3.4-4.8 [facility] Serum or plasma albumin/glob ulin mass ratioOrdered By: Millie Massey on 09-09-2024 Albumin/Globulin [Mass ratio] 0.6 {ratio} Low 0.9-2.4 [facility] Serum or plasma alkaline susan sphatase measurementOrdered By: Millie Massey on 09-09-2024 ALP [Catalytic activity/Vol] 93 U/L 35-104 [facility] Serum or plasma calcium megan urement (mass/volume)Ordered By: Millie Massey on 09-09-2024 Calcium [Mass/Vol] 8.8 mg/dL 7.6-11.0 [facility] Serum or plasma urea nitroge n measurement (mass/volume)Ordered By: Millie Massey on 09-09-2024 Urea nitrogen [Mass/Vol] 49 mg/dL High 09-14 [facility] Sodium levelOrdered By: Silvana Massey on 09-09-2024 Sodium [Moles/Vol] 133 mmol/L 133-145 [facility] Sodium level 133 mmol/L 133-145 [facility] Total proteinOrdered By: Lesli Massey on 09-09-2024 Protein [Mass/Vol] 6.1 g/dL 5.9-8.4 [facility] Total protein 6.1 g/dL 5.9-8.4 [facility] Urea nitrogen [Mass/Vol]Orde red By: Millie Massey on 09-09-2024 Serum or plasma urea nitrogen measurement (mass/volume) 49 mg/dL High - [facility] White blood cell (WBC) count Ordered By: Millie Massey on 09-09-2024 WBC (Bld) [#/Vol] 3.8 10*3/uL Low 4.4-11.0 [facility] White blood cell (WBC) count 3.8 K/mm3 Low 4.4-11.0 [facility] ALP [Catalytic activity/Vol] Ordered By: Millie Massey on 09-02-2024 Serum or plasma alkaline phosphatase measurement 81 U/L 35-104 [facility] ALT [Catalytic activity/Vol] Ordered By: Millie Massey on 09-02-2024 Serum or plasma alanine aminotransferase (ALT) measurement 16 U/L <35 [facility] Albumin [Mass/Vol]Ordered By : Millie Massey on 09-02-2024 Serum or plasma albumin measurement (mass/volume) 2.3 g/dL Low 3.4-4.8 [facility] Albumin/Globulin [Mass ratio ]Ordered By: Millie Massey on 09-02-2024 Serum or plasma albumin/globulin mass ratio 0.6 RATIO Low 0.9-2.4 [facility] Anion gap [Moles/Vol]Ordered By: Millie Massey on 09-02-2024 Anion gap in Serum or Plasma 10 5- [facility] Anion gap in Serum or Plasma Ordered By: Millie Massey on 09-02-2024 Anion gap [Moles/Vol] 10 mmol/L 5-15 [facility] BUN/creatinine ratioOrdered By: Millie Massey on 09-02-2024 Urea nitrogen/Creatinine [Mass ratio] 22.5 mg/mg High 10-20 [facility] BUN/creatinine ratio 22.5 RATIO High 10-20 [facility] Bilirubin, totalOrdered By: Millie Massey on 09-02-2024 Bilirubin [Mass/Vol] 0.27 mg/dL Normal 0.00-1.30 [facility] Comment on above: Order Comment: Performed By: #### L 501.5200, L500.4050, L100.0500, L100.4500 ####[facility] [address] [place], [place], [id number] Bilirubin, total 0.27 mg/dL 0.00-1.30 [facility] Blood manual differential co mment interpretation (narrative result)Ordered By: Millie Massey on 09-02-2024 Manual differential comment Horace (Bld) [Interp] See comment [facility] CBC-Complete Blood Cnt No Di ffon 09-02-2024 Erythrocyte distribution width (RBC) [Ratio] 22.0 % High 11.6-14.6 [facility] Comment on above: Order Comment: Performed By: #### L 501.5200, L500.4050, L100.0500, L100.4500 ####[facility] [address] [place], [address] Hematocrit (Bld) [Volume fraction] 34.9 % Low 37-47 [facility] Comment on above: Order Comment: Performed By: #### L 501.5200, L500.4050, L100.0500, L100.4500 ####[facility] [address] [place], [address] Hemoglobin (Bld) [Mass/Vol] 10.7 g/dL Low 12.0-15.0 [facility] Comment on above: Order Comment: - Performed By: #### L 501.5200, L500.4050, L100.0500, L100.4500 ####[facility] [address] [place], [address] MCH (RBC) [Entitic mass] 28.0 pg Normal 27.0-32.0 [facility] Comment on above: Order Comment: - Performed By: #### L 501.5200, L500.4050, L100.0500, L100.4500 ####[facility] [address] [place], [address] MCHC (RBC) [Mass/Vol] 30.7 g/dL Low 32-36 [facility] Comment on above: Order Comment: - Performed By: #### L 501.5200, L500.4050, L100.0500, L100.4500 ####[facility] [address] [place], [address] MCV (RBC) [Entitic vol] 91.4 fL Normal 81-99 [facility] Comment on above: Order Comment: - Performed By: #### L 501.5200, L500.4050, L100.0500, L100.4500 ####[facility] [address] [place], [address] Platelet mean volume (Bld) [Entitic vol] 10.2 fL Normal 6.2-12.0 [facility] Comment on above: Order Comment: - Performed By: #### L 501.5200, L500.4050, L100.0500, L100.4500 ####[facility] [address] [place], [address] Platelets (Bld) [#/Vol] 178 10*3/uL Normal 150-450 [facility] Comment on above: Order Comment: Performed By: #### L 501.5200, L500.4050, L100.0500, L100.4500 ####[facility] [address] [place], [address] RBC (Bld) [#/Vol] 3.82 10*6/uL Low 4.2-5.4 [facility] Comment on above: Order Comment: Performed By: #### L 501.5200, L500.4050, L100.0500, L100.4500 ####[facility] [address] [place], [address] RDW SD 72.8 fl High 35.1-43.9 [facility] Comment on above: Order Comment: Performed By: #### L 501.5200, L500.4050, L100.0500, L100.4500 ####[facility] [address] [place], [address] WBC (Bld) [#/Vol] 8.0 10*3/uL Normal 4.4-11.0 [facility] Comment on above: Order Comment: Performed By: #### L 501.5200, L500.4050, L100.0500, L100.4500 ####[facility] [address] [place], [address] Calcium [Mass/Vol]Ordered By : Millie Massey on 09-02-2024 Serum or plasma calcium measurement (mass/volume) 7.8 mg/dL 7.6-11.0 [facility] Carbon dioxide, total [Moles /volume] in Central venous bloodOrdered By: Millie Massey on 09-02-2024 CO2 [Moles/Vol] 25.9 mmol/L Normal 21.0-32.0 [facility] Comment on above: Order Comment: Performed By: #### L 501.5200, L500.4050, L100.0500, L100.4500 ####[facility] [address] [place], [address] Carbon dioxide, total [Moles/volume] in Central venous blood 25.9 mmol/L 21.0-32.0 [facility] Chloride assayOrdered By: Carter Massey on 09-02-2024 Chloride [Moles/Vol] 96 mmol/L Low 98-108 [facility] Comment on above: Order Comment: Performed By: #### L 501.5200, L500.4050, L100.0500, L100.4500 ####[facility] [address] [place], [address] Chloride assay 96 mmol/L Low 98-108 [facility] Comprehensive Metabolic Prof ilon 09-02-2024 ALK PHOS 81 U/L Normal 35-104 [facility] Comment on above: Order Comment: Performed By: #### L 501.5200, L500.4050, L100.0500, L100.4500 ####[facility] [address] [place], [address] AST [Catalytic activity/Vol] 47 U/L High <=31 [facility] Comment on above: Order Comment: Performed By: #### L 501.5200, L500.4050, L100.0500, L100.4500 ####[facility] [address] [place], [address] BUN/CRE 22.5 RATIO High 10-20 [facility] Comment on above: Order Comment: Performed By: #### L 501.5200, L500.4050, L100.0500, L100.4500 ####[facility] [address] [place], [address] GAP 10 Normal 5-15 [facility] Comment on above: Order Comment: Performed By: #### L 501.5200, L500.4050, L100.0500, L100.4500 ####[facility] [address] [place], [address] Potassium [Moles/Vol] 3.7 mmol/L Normal 3.3-5.1 [facility] Comment on above: Order Comment: Performed By: #### L 501.5200, L500.4050, L100.0500, L100.4500 ####[facility] [address] [place], [address] T PROT 5.9 g/dL Normal 5.9-8.4 [facility] Comment on above: Order Comment: Performed By: #### L 501.5200, L500.4050, L100.0500, L100.4500 ####[facility] [address] [place], [address] Creatinine [Mass/Vol]Ordered By: Millie Massey on 09-02-2024 Serum creatinine measurement (mass/volume) 0.91 mg/dL 0.70-1.20 [facility] Differential Commenton 09-02 SMEAR COMMENT Normal [facility] Comment on above: Order Comment: Result Comment: ANIS OCYTOSIS 1+ Performed By: #### L 501.5200, L500.4050, L100.0500, L100.4500 ####[facility] [address] [place], [address] Erythrocyte distribution wid th (RBC) [Ratio]Ordered By: Millie Massey on 09-02-2024 Erythrocyte distribution width ratio 22.0 % High 11.6-14.6 [facility] Erythrocyte distribution width standard deviation 72.8 fl High 35.1-43.9 [facility] Erythrocyte distribution wid th ratioOrdered By: Millie Massey on 09-02-2024 Erythrocyte distribution width (RBC) [Ratio] 22.0 % High 11.6-14.6 [facility] Erythrocyte distribution wid th standard deviationOrdered By: Millie Massey on 09-02-2024 Erythrocyte distribution width (RBC) [Ratio] 72.8 fl High 35.1-43.9 [facility] GFR/1.73 sq M.predicted víctor g non-blacks MDRD (S/P/Bld) [Vol rate/Area]Ordered By: Millie Massey on 09-02-2024 Glomerular filtration rate (GFR) estimation/1.73 sq m using serum, plasma, or whole b 71 >60 [facility] Glomerular filtration rate ( GFR) estimation/1.73 sq m using serum, plasma, or whole bOrdered By: Millie Massey on 09-02-2024 GFR/1.73 sq M.predicted among non-blacks MDRD (S/P/Bld) [Vol rate/Area] 71 mL/min/{1.73_m2} Normal >60 [facility] Comment on above: Order Comment: Result Comment: mL/m in/1.73m2 CKD-EPI Creatinine Equation (2020) Performed By: #### L 501.5200, L500.4050, L100.0500, L100.4500 ####[facility] [address] [place], [address] Glucose [Mass/Vol]Ordered By : Millie Massey on 09-02-2024 Serum glucose measurement (mass/volume) 73 mg/dL 70-99 [facility] Hematocrit Auto (Bld) [Volum e fraction]Ordered By: Millie Massey on 09-02-2024 Hematocrit (Bld) [Volume fraction] 34.9 % Low 37-47 [facility] Automated blood hematocrit (percentage) 34.9 % Low 37-47 [facility] Hemoglobin measurementOrdere d By: Millie Massey on 09-02-2024 Hemoglobin (Bld) [Mass/Vol] 10.7 g/dL Low 12.0-15.0 [facility] Hemoglobin measurement 10.7 g/dL Low 12.0-15.0 [facility] MCV (RBC) [Entitic vol]Order ed By: Millie Massey on 09-02-2024 MCV (mean corpuscular volume) determination 91.4 fL 81-99 [facility] MCV (mean corpuscular volume ) determinationOrdered By: Millie Massey on 09-02-2024 MCV (RBC) [Entitic vol] 91.4 fL 81-99 [facility] Magnesiumon 09-02-2024 Magnesium [Mass/Vol] 2.4 mg/dL High 1.5-2.2 [facility] Comment on above: Order Comment: Performed By: #### L 501.5200, L500.4050, L100.0500, L100.4500 ####[facility] [address] [place], [address] Magnesium (Unsp spec) [Mass/ Vol]Ordered By: Millie Massey on 09-02-2024 Magnesium measurement (mass/volume) 2.4 mg/dL High 1.5-2.2 [facility] Magnesium measurement (mass/ volume)Ordered By: Millie Massey on 09-02-2024 Magnesium (Unsp spec) [Mass/Vol] 2.4 mg/dL High 1.5-2.2 [facility] Manual differential comment Horace (Bld) [Interp]Ordered By: Millie Massey on 09-02-2024 Blood manual differential comment interpretation (narrative result) See comment [facility] Mean corpuscular hemoglobin (MCH) determinationOrdered By: Millie Massey on 09-02-2024 MCH (RBC) [Entitic mass] 28.0 pg 27.0-32.0 [facility] Mean corpuscular hemoglobin (MCH) determination 28.0 pg 27.0-32.0 [facility] Mean corpuscular hemoglobin concentration (MCHC) determinationOrdered By: Millie Massey on 09-02-2024 Mean corpuscular hemoglobin concentration (MCHC) determination 30.7 g/dL Low 32-36 [facility] Mean platelet volume determi nationOrdered By: Millie Massey on 09-02-2024 Mean platelet volume determination 10.2 fl 6.2-12.0 [facility] No Panel InformationOrdered By: Millie Massey on 09-02-2024 47 U/L High <32 [facility] Platelet countOrdered By: Carter Massey on 09-02-2024 Platelets (Bld) [#/Vol] 178 10*3/uL 150-450 [facility] Platelet count 178 K/mm3 150-450 [facility] Potassium (Unsp spec) [Mass/ Vol]Ordered By: Millie Massey on 09-02-2024 Potassium measurement (mass/volume) 3.7 mmol/L 3.3-5.1 [facility] Potassium measurement (mass/ volume)Ordered By: Millie Massey on 09-02-2024 Potassium (Unsp spec) [Mass/Vol] 3.7 mmol/L 3.3-5.1 [facility] RBC Auto (Bld) [#/Vol]Ordere d By: Millie Massey on 09-02-2024 RBC (Bld) [#/Vol] 3.82 10*6/uL Low 4.2-5.4 [facility] Automated blood erythrocyte count 3.82 M/mm3 Low 4.2-5.4 [facility] Serum creatinine measurement (mass/volume)Ordered By: Millie Massey on 09-02-2024 Creatinine [Mass/Vol] 0.91 mg/dL Normal 0.70-1.20 [facility] Comment on above: Order Comment: Performed By: #### L 501.5200, L500.4050, L100.0500, L100.4500 ####[facility] [address] [place], [place], [id number] Serum globulin measurementOr dered By: Millie Massey on 09-02-2024 Globulin (S) [Mass/Vol] 3.7 g/dL Normal 2.2-4.2 [facility] Comment on above: Order Comment: Performed By: #### L 501.5200, L500.4050, L100.0500, L100.4500 ####[facility] [address] [place], [address] Serum globulin measurement 3.7 g/dL 2.2-4.2 [facility] Serum glucose measurement (m ass/volume)Ordered By: Millie Massey on 09-02-2024 Glucose [Mass/Vol] 73 mg/dL Normal 70-99 [facility] Comment on above: Order Comment: Performed By: #### L 501.5200, L500.4050, L100.0500, L100.4500 ####[facility] [address] [place], [place], [id number] Serum or plasma alanine camargo otransferase (ALT) measurementOrdered By: Millie Massey on 09-02-2024 ALT [Catalytic activity/Vol] 16 U/L Normal <=34 [facility] Comment on above: Order Comment: Performed By: #### L 501.5200, L500.4050, L100.0500, L100.4500 ####[facility] [address] [place], [place], [id number]) Serum or plasma albumin megan urement (mass/volume)Ordered By: Millie Massey on 09-02-2024 Albumin [Mass/Vol] 2.3 g/dL Low 3.4-4.8 [facility] Comment on above: Order Comment: Performed By: #### L 501.5200, L500.4050, L100.0500, L100.4500 ####[facility] [address] [place], [address] Serum or plasma albumin/glob ulin mass ratioOrdered By: Millie Massey on 09-02-2024 Albumin/Globulin [Mass ratio] 0.6 {ratio} Low 0.9-2.4 [facility] Comment on above: Order Comment: Performed By: #### L 501.5200, L500.4050, L100.0500, L100.4500 ####[facility] [address] [place], [address] Serum or plasma alkaline susan sphatase measurementOrdered By: Millie Massey on 09-02-2024 ALP [Catalytic activity/Vol] 81 U/L 35-104 [facility] Serum or plasma calcium megan urement (mass/volume)Ordered By: Millie Massey on 09-02-2024 Calcium [Mass/Vol] 7.8 mg/dL Normal 7.6-11.0 [facility] Comment on above: Order Comment: Performed By: #### L 501.5200, L500.4050, L100.0500, L100.4500 ####[facility] [address] [place], [address] Serum or plasma urea nitroge n measurement (mass/volume)Ordered By: Millie Massey on 09-02-2024 Urea nitrogen [Mass/Vol] 21 mg/dL High 4-19 [facility] Comment on above: Order Comment: Performed By: #### L 501.5200, L500.4050, L100.0500, L100.4500 ####[facility] [address] [place], [address] Sodium levelOrdered By: Silvana Massey on 09-02-2024 Sodium [Moles/Vol] 133 mmol/L Normal 133-145 [facility] Comment on above: Order Comment: Performed By: #### L 501.5200, L500.4050, L100.0500, L100.4500 ####[facility] [address] [place], [address] Sodium level 133 mmol/L 133-145 [facility] Total proteinOrdered By: Lesli Massey on 09-02-2024 Protein [Mass/Vol] 5.9 g/dL 5.9-8.4 [facility] Total protein 5.9 g/dL 5.9-8.4 [facility] Urea nitrogen [Mass/Vol]Orde red By: Millie Massey on 09-02-2024 Serum or plasma urea nitrogen measurement (mass/volume) 21 mg/dL High 4-19 [facility] White blood cell (WBC) count Ordered By: Millie Massey on 09-02-2024 WBC (Bld) [#/Vol] 8.0 10*3/uL 4.4-11.0 [facility] White blood cell (WBC) count 8.0 K/mm3 4.4-11.0 [facility] [id number] 08-30-2024 ANTIBODY ID Normal [facility] Comment on above: Order Comment: [id number] Result Comment: CFYA Performed By: #### Laila IZAGUIRRE, KENDRA, BTS ####[facility] [address] [place], [place], [id number] BRCon 08-29-2024 RC Normal [facility] Comment on above: Result Comment: [id number] ON PRSMD TRFSD 08/31/24 [id number] ON PRSMD TRFSD 08/31/24 1018 Performed By: #### Laila WITTECY2426, KENDRA, BTS ####[facility] [address] [place], [place], [address] Type AND Screenon 08-29-2024 ABO and Rh group Nom (Bld) Blood group O Rh(D) positive Normal [facility] Comment on above: Order Comment: NYA Performed By: #### B [id number], KENDRA, BTS ####[facility] [address] [place], [place], [id number] Blood manual differential co mment interpretation (narrative result)Ordered By: Millie Massey on 08-28-2024 Manual differential comment Horace (Bld) [Interp] See comment [facility] CBC-Complete Blood Cnt No Di ffon 08-28-2024 Erythrocyte distribution width (RBC) [Ratio] 21.5 % High 11.6-14.6 [facility] Comment on above: Order Comment: 200 Performed By: #### L 100.0500, L100.4500 ####[facility] [address] [place], [address] Hematocrit (Bld) [Volume fraction] 24.2 % Low 37-47 [facility] Comment on above: Order Comment: 200 Performed By: #### L 100.0500, L100.4500 ####[facility] [address] [place], [address] Hemoglobin (Bld) [Mass/Vol] 7.1 g/dL Low 12.0-15.0 [facility] Comment on above: Order Comment: 200 Performed By: #### L 100.0500, L100.4500 ####[facility] [address] [place], [address] MCH (RBC) [Entitic mass] 27.8 pg Normal 27.0-32.0 [facility] Comment on above: Order Comment: 200 Performed By: #### L 100.0500, L100.4500 ####[facility] [address] [place], [address] MCHC (RBC) [Mass/Vol] 29.3 g/dL Low 32-36 [facility] Comment on above: Order Comment: 200 Performed By: #### L 100.0500, L100.4500 ####[facility] [address] [place], [address] MCV (RBC) [Entitic vol] 94.9 fL Normal 81-99 [facility] Comment on above: Order Comment: 200 Performed By: #### L 100.0500, L100.4500 ####[facility] [address] [place], [address] Platelet mean volume (Bld) [Entitic vol] 10.8 fL Normal 6.2-12.0 [facility] Comment on above: Order Comment: 200 Performed By: #### L 100.0500, L100.4500 ####[facility] [address] [place], [address] Platelets (Bld) [#/Vol] 261 10*3/uL Normal 150-450 [facility] Comment on above: Order Comment: 200 Performed By: #### L 100.0500, L100.4500 ####[facility] [address] [place], [address] RBC (Bld) [#/Vol] 2.55 10*6/uL Low 4.2-5.4 [facility] Comment on above: Order Comment: 200 Performed By: #### L 100.0500, L100.4500 ####[facility] [address] [place], [address] RDW SD 74.1 fl High 35.1-43.9 [facility] Comment on above: Order Comment: 200 Performed By: #### L 100.0500, L100.4500 ####[facility] [address] [place], [address] WBC (Bld) [#/Vol] 4.3 10*3/uL Low 4.4-11.0 [facility] Comment on above: Order Comment: 200 Performed By: #### L 100.0500, L100.4500 ####[facility] [address] [place], [address] Differential Commenton 08-28 SMEAR COMMENT Normal [facility] Comment on above: Order Comment: 200 Result Comment: ANIS OCYTOSIS = 1+POLYCHROMASIA = 1+PLATELET ESTIMATE = ADEQUATE Performed By: #### L 100.0500, L100.4500 ####[facility] [address] [place], [address] Erythrocyte distribution wid th (RBC) [Ratio]Ordered By: Millie Massey on 08-28-2024 Erythrocyte distribution width ratio 21.5 % High 11.6-14.6 [facility] Erythrocyte distribution width standard deviation 74.1 fl High 35.1-43.9 [facility] Erythrocyte distribution wid th ratioOrdered By: Millie Massey on 08-28-2024 Erythrocyte distribution width (RBC) [Ratio] 21.5 % High 11.6-14.6 [facility] Erythrocyte distribution wid th standard deviationOrdered By: Millie Massey on 08-28-2024 Erythrocyte distribution width (RBC) [Ratio] 74.1 fl High 35.1-43.9 [facility] Hematocrit Auto (Bld) [Volum e fraction]Ordered By: Millie Massey on 08-28-2024 Hematocrit (Bld) [Volume fraction] 24.2 % Low 37-47 [facility] Automated blood hematocrit (percentage) 24.2 % Low 37-47 [facility] Hemoglobin measurementOrdere d By: Millie Massey on 08-28-2024 Hemoglobin (Bld) [Mass/Vol] 7.1 g/dL Low 12.0-15.0 [facility] Hemoglobin measurement 7.1 g/dL Low 12.0-15.0 [facility] MCV (RBC) [Entitic vol]Order ed By: Millie Massey on 08-28-2024 MCV (mean corpuscular volume) determination 94.9 fL 81-99 [facility] MCV (mean corpuscular volume ) determinationOrdered By: Millie Massey on 08-28-2024 MCV (RBC) [Entitic vol] 94.9 fL 81-99 [facility] Manual differential comment Horace (Bld) [Interp]Ordered By: Millie Massey on 08-28-2024 Blood manual differential comment interpretation (narrative result) See comment [facility] Mean corpuscular hemoglobin (MCH) determinationOrdered By: Millie Massey on 08-28-2024 MCH (RBC) [Entitic mass] 27.8 pg 27.0-32.0 [facility] Mean corpuscular hemoglobin (MCH) determination 27.8 pg 27.0-32.0 [facility] Mean corpuscular hemoglobin concentration (MCHC) determinationOrdered By: Millie Massey on 08-28-2024 Mean corpuscular hemoglobin concentration (MCHC) determination 29.3 g/dL Low 32-36 [facility] Mean platelet volume determi nationOrdered By: Millie Massey on 08-28-2024 Mean platelet volume determination 10.8 fl 6.2-12.0 [facility] Platelet countOrdered By: Carter Massey on 08-28-2024 Platelets (Bld) [#/Vol] 261 10*3/uL 150-450 [facility] Platelet count 261 K/mm3 150-450 [facility] RBC Auto (Bld) [#/Vol]Ordere d By: Millie Massey on 08-28-2024 RBC (Bld) [#/Vol] 2.55 10*6/uL Low 4.2-5.4 [facility] Automated blood erythrocyte count 2.55 M/mm3 Low 4.2-5.4 [facility] White blood cell (WBC) count Ordered By: Millie Massey on 08-28-2024 WBC (Bld) [#/Vol] 4.3 10*3/uL Low 4.4-11.0 [facility] White blood cell (WBC) count 4.3 K/mm3 Low 4.4-11.0 [facility] ALP [Catalytic activity/Vol] Ordered By: Millie Massey on 08-26-2024 Serum or plasma alkaline phosphatase measurement 81 U/L 35-104 [facility] ALT [Catalytic activity/Vol] Ordered By: Millie Massey on 08-26-2024 Serum or plasma alanine aminotransferase (ALT) measurement 10 U/L <35 [facility] Albumin [Mass/Vol]Ordered By : Millie Massey on 08-26-2024 Serum or plasma albumin measurement (mass/volume) 2.1 g/dL Low 3.4-4.8 [facility] Albumin/Globulin [Mass ratio ]Ordered By: Millie Massey on 08-26-2024 Serum or plasma albumin/globulin mass ratio 0.6 RATIO Low 0.9-2.4 [facility] Anion gap [Moles/Vol]Ordered By: Millie Massey on 08-26-2024 Anion gap in Serum or Plasma 12 5- [facility] Anion gap in Serum or Plasma Ordered By: Millie Massey on 08-26-2024 Anion gap [Moles/Vol] 12 mmol/L 5- [facility] BUN/creatinine ratioOrdered By: Millie Massey on 08-26-2024 Urea nitrogen/Creatinine [Mass ratio] 24.2 mg/mg High 10-20 [facility] BUN/creatinine ratio 24.2 RATIO High 10-20 [facility] Bilirubin, totalOrdered By: Millie Massey on 08-26-2024 Bilirubin [Mass/Vol] 0.19 mg/dL 0.00-1.30 [facility] Bilirubin, total 0.19 mg/dL 0.00-1.30 [facility] Blood manual differential co mment interpretation (narrative result)Ordered By: Millie Massey on 08-26-2024 Manual differential comment Horace (Bld) [Interp] COMMENT [facility] CBC-Complete Blood Cnt No Di ffon 08-26-2024 Erythrocyte distribution width (RBC) [Ratio] 21.6 % High 11.6-14.6 [facility] Comment on above: Order Comment: 206 Performed By: #### L 100.0500, L100.4500, L501.5200, L500.4050 ####[facility] [address] [place], [place], [id number] Hematocrit (Bld) [Volume fraction] 23.6 % Low 37-47 [facility] Comment on above: Order Comment: 206 Performed By: #### L 100.0500, L100.4500, L501.5200, L500.4050 ####[facility] [address] [place], [address] Hemoglobin (Bld) [Mass/Vol] 7.0 g/dL Low 12.0-15.0 [facility] Comment on above: Order Comment: 206 Performed By: #### L 100.0500, L100.4500, L501.5200, L500.4050 ####[facility] [address] [place], [address] MCH (RBC) [Entitic mass] 27.7 pg Normal 27.0-32.0 [facility] Comment on above: Order Comment: 206 Performed By: #### L 100.0500, L100.4500, L501.5200, L500.4050 ####[facility] [address] [place], [address] MCHC (RBC) [Mass/Vol] 29.7 g/dL Low 32-36 [facility] Comment on above: Order Comment: 206 Performed By: #### L 100.0500, L100.4500, L501.5200, L500.4050 ####[facility] [address] [place], [address] MCV (RBC) [Entitic vol] 93.3 fL Normal 81-99 [facility] Comment on above: Order Comment: 206 Performed By: #### L 100.0500, L100.4500, L501.5200, L500.4050 ####[facility] [address] [place], [address] Platelet mean volume (Bld) [Entitic vol] 10.2 fL Normal 6.2-12.0 [facility] Comment on above: Order Comment: 206 Performed By: #### L 100.0500, L100.4500, L501.5200, L500.4050 ####[facility] [address] [place], [address] Platelets (Bld) [#/Vol] 260 10*3/uL Normal 150-450 [facility] Comment on above: Order Comment: 206 Performed By: #### L 100.0500, L100.4500, L501.5200, L500.4050 ####[facility] [address] [place], [address] RBC (Bld) [#/Vol] 2.53 10*6/uL Low 4.2-5.4 [facility] Comment on above: Order Comment: 206 Performed By: #### L 100.0500, L100.4500, L501.5200, L500.4050 ####[facility] [address] [place], [address] RDW SD 71.9 fl High 35.1-43.9 [facility] Comment on above: Order Comment: 206 Performed By: #### L 100.0500, L100.4500, L501.5200, L500.4050 ####[facility] [address] [place], [address] WBC (Bld) [#/Vol] 4.2 10*3/uL Low 4.4-11.0 [facility] Comment on above: Order Comment: 206 Performed By: #### L 100.0500, L100.4500, L501.5200, L500.4050 ####[facility] [address] [place], [address] Calcium [Mass/Vol]Ordered By : Millie Massey on 08-26-2024 Serum or plasma calcium measurement (mass/volume) 8.2 mg/dL 7.6-11.0 [facility] Carbon dioxide, total [Moles /volume] in Central venous bloodOrdered By: Millie Massey on 08-26-2024 CO2 [Moles/Vol] 23.7 mmol/L 21.0-32.0 [facility] Carbon dioxide, total [Moles/volume] in Central venous blood 23.7 mmol/L 21.0-32.0 [facility] Chloride assayOrdered By: Carter Massey on 08-26-2024 Chloride [Moles/Vol] 96 mmol/L Low 98-108 [facility] Chloride assay 96 mmol/L Low 98-108 [facility] Comprehensive Metabolic Prof ilon 08-26-2024 Albumin [Mass/Vol] 2.1 g/dL Low 3.4-4.8 [facility] Comment on above: Order Comment: 206 Performed By: #### L 100.0500, L100.4500, L501.5200, L500.4050 ####[facility] [address] [place], [address] Albumin/Globulin [Mass ratio] 0.6 {ratio} Low 0.9-2.4 [facility] Comment on above: Order Comment: 206 Performed By: #### L 100.0500, L100.4500, L501.5200, L500.4050 ####[facility] [address] [place], [address] ALK PHOS 81 U/L Normal 35-104 [facility] Comment on above: Order Comment: 206 Performed By: #### L 100.0500, L100.4500, L501.5200, L500.4050 ####[facility] [address] [place], [address] ALT [Catalytic activity/Vol] 10 U/L Normal <=34 [facility] Comment on above: Order Comment: 206 Performed By: #### L 100.0500, L100.4500, L501.5200, L500.4050 ####[facility] [address] [place], [address] AST [Catalytic activity/Vol] 30 U/L Normal <=31 [facility] Comment on above: Order Comment: 206 Performed By: #### L 100.0500, L100.4500, L501.5200, L500.4050 ####[facility] [address] [place], [address] Bilirubin [Mass/Vol] 0.19 mg/dL Normal 0.00-1.30 [facility] Comment on above: Order Comment: 206 Performed By: #### L 100.0500, L100.4500, L501.5200, L500.4050 ####[facility] [address] [place], [address] BUN/CRE 24.2 RATIO High 10-20 [facility] Comment on above: Order Comment: 206 Performed By: #### L 100.0500, L100.4500, L501.5200, L500.4050 ####[facility] [address] [place], [address] Calcium [Mass/Vol] 8.2 mg/dL Normal 7.6-11.0 [facility] Comment on above: Order Comment: 206 Performed By: #### L 100.0500, L100.4500, L501.5200, L500.4050 ####[facility] [address] [place], [address] Chloride [Moles/Vol] 96 mmol/L Low 98-108 [facility] Comment on above: Order Comment: 206 Performed By: #### L 100.0500, L100.4500, L501.5200, L500.4050 ####[facility] [address] [place], [address] CO2 [Moles/Vol] 23.7 mmol/L Normal 21.0-32.0 [facility] Comment on above: Order Comment: 206 Performed By: #### L 100.0500, L100.4500, L501.5200, L500.4050 ####[facility] [address] [place], [address] Creatinine [Mass/Vol] 1.49 mg/dL High 0.70-1.20 [facility] Comment on above: Order Comment: 206 Performed By: #### L 100.0500, L100.4500, L501.5200, L500.4050 ####[facility] [address] [place], [address] GAP 12 Normal 5-15 [facility] Comment on above: Order Comment: 206 Performed By: #### L 100.0500, L100.4500, L501.5200, L500.4050 ####[facility] [address] [place], [address] GFR/1.73 sq M.predicted among non-blacks MDRD (S/P/Bld) [Vol rate/Area] 39 mL/min/{1.73_m2} Low >60 [facility] Comment on above: Order Comment: 206 Result Comment: mL/m in/1.73m2 CKD-EPI Creatinine Equation (2020) Performed By: #### L 100.0500, L100.4500, L501.5200, L500.4050 ####[facility] [address] [place], [address] Globulin (S) [Mass/Vol] 3.3 g/dL Normal 2.2-4.2 [facility] Comment on above: Order Comment: 206 Performed By: #### L 100.0500, L100.4500, L501.5200, L500.4050 ####[facility] [address] [place], [address] Glucose [Mass/Vol] 93 mg/dL Normal 70-99 [facility] Comment on above: Order Comment: 206 Performed By: #### L 100.0500, L100.4500, L501.5200, L500.4050 ####[facility] [address] [place], [address] Potassium [Moles/Vol] 4.9 mmol/L Normal 3.3-5.1 [facility] Comment on above: Order Comment: 206 Performed By: #### L 100.0500, L100.4500, L501.5200, L500.4050 ####[facility] [address] [place], [address] Sodium [Moles/Vol] 131 mmol/L Low 133-145 [facility] Comment on above: Order Comment: 206 Performed By: #### L 100.0500, L100.4500, L501.5200, L500.4050 ####[facility] [address] [place], [address] T PROT 5.4 g/dL Low 5.9-8.4 [facility] Comment on above: Order Comment: 206 Performed By: #### L 100.0500, L100.4500, L501.5200, L500.4050 ####[facility] [address] [place], [address] Urea nitrogen [Mass/Vol] 36 mg/dL High 4-19 [facility] Comment on above: Order Comment: 206 Performed By: #### L 100.0500, L100.4500, L501.5200, L500.4050 ####[facility] [address] [place], [address] Creatinine [Mass/Vol]Ordered By: Millie Massey on 08-26-2024 Serum creatinine measurement (mass/volume) 1.49 mg/dL High 0.70-1.20 [facility] Differential Commenton 08-26 SMEAR COMMENT COMMENT Normal [facility] Comment on above: Order Comment: 206 Result Comment: 2+ A NISO. Performed By: #### L 100.0500, L100.4500, L501.5200, L500.4050 ####[facility] [address] [place], [address] Erythrocyte distribution wid th (RBC) [Ratio]Ordered By: Millie Massey on 08-26-2024 Erythrocyte distribution width ratio 21.6 % High 11.6-14.6 [facility] Erythrocyte distribution width standard deviation 71.9 fl High 35.1-43.9 [facility] Erythrocyte distribution wid th ratioOrdered By: Millie Massey on 08-26-2024 Erythrocyte distribution width (RBC) [Ratio] 21.6 % High 11.6-14.6 [facility] Erythrocyte distribution wid th standard deviationOrdered By: Millie Massey on 08-26-2024 Erythrocyte distribution width (RBC) [Ratio] 71.9 fl High 35.1-43.9 [facility] GFR/1.73 sq M.predicted víctor g non-blacks MDRD (S/P/Bld) [Vol rate/Area]Ordered By: Millie Massey on 08-26-2024 Glomerular filtration rate (GFR) estimation/1.73 sq m using serum, plasma, or whole b 39 Low >60 [facility] Glomerular filtration rate ( GFR) estimation/1.73 sq m using serum, plasma, or whole bOrdered By: Millie Massey on 08-26-2024 GFR/1.73 sq M.predicted among non-blacks MDRD (S/P/Bld) [Vol rate/Area] 39 mL/min/{1.73_m2} Low >60 [facility] Glucose [Mass/Vol]Ordered By : Millie Massey on 08-26-2024 Serum glucose measurement (mass/volume) 93 mg/dL 70-99 [facility] Hematocrit Auto (Bld) [Volum e fraction]Ordered By: Millie Massey on 08-26-2024 Hematocrit (Bld) [Volume fraction] 23.6 % Low 37-47 [facility] Automated blood hematocrit (percentage) 23.6 % Low 37-47 [facility] Hemoglobin measurementOrdere d By: Millie Massey on 08-26-2024 Hemoglobin (Bld) [Mass/Vol] 7.0 g/dL Low 12.0-15.0 [facility] Hemoglobin measurement 7.0 g/dL Low 12.0-15.0 [facility] MCV (RBC) [Entitic vol]Order ed By: Millie Massey on 08-26-2024 MCV (mean corpuscular volume) determination 93.3 fL 81-99 [facility] MCV (mean corpuscular volume ) determinationOrdered By: Millie Massey on 08-26-2024 MCV (RBC) [Entitic vol] 93.3 fL 81-99 [facility] Magnesiumon 08-26-2024 Magnesium [Mass/Vol] 1.8 mg/dL Normal 1.5-2.2 [facility] Comment on above: Order Comment: 206 Performed By: #### L 100.0500, L100.4500, L501.5200, L500.4050 ####[facility] [address] [place], [address] Magnesium (Unsp spec) [Mass/ Vol]Ordered By: Millie Massey on 08-26-2024 Magnesium measurement (mass/volume) 1.8 mg/dL 1.5-2.2 [facility] Magnesium measurement (mass/ volume)Ordered By: Millie Massey on 08-26-2024 Magnesium (Unsp spec) [Mass/Vol] 1.8 mg/dL 1.5-2.2 [facility] Manual differential comment Horace (Bld) [Interp]Ordered By: Millie Massey on 08-26-2024 Blood manual differential comment interpretation (narrative result) COMMENT [facility] Mean corpuscular hemoglobin (MCH) determinationOrdered By: Millie Massey on 08-26-2024 MCH (RBC) [Entitic mass] 27.7 pg 27.0-32.0 [facility] Mean corpuscular hemoglobin (MCH) determination 27.7 pg 27.0-32.0 [facility] Mean corpuscular hemoglobin concentration (MCHC) determinationOrdered By: Millie Massey on 08-26-2024 Mean corpuscular hemoglobin concentration (MCHC) determination 29.7 g/dL Low 32-36 [facility] Mean platelet volume determi nationOrdered By: Millie Massey on 08-26-2024 Mean platelet volume determination 10.2 fl 6.2-12.0 [facility] No Panel InformationOrdered By: Millie Massey on 08-26-2024 30 U/L <32 [facility] Platelet countOrdered By: Carter Massey on 08-26-2024 Platelets (Bld) [#/Vol] 260 10*3/uL 150-450 [facility] Platelet count 260 K/mm3 150-450 [facility] Potassium (Unsp spec) [Mass/ Vol]Ordered By: Millie Massey on 08-26-2024 Potassium measurement (mass/volume) 4.9 mmol/L 3.3-5.1 [facility] Potassium measurement (mass/ volume)Ordered By: Millie Massey on 08-26-2024 Potassium (Unsp spec) [Mass/Vol] 4.9 mmol/L 3.3-5.1 [facility] RBC Auto (Bld) [#/Vol]Ordere d By: Millie Massey on 08-26-2024 RBC (Bld) [#/Vol] 2.53 10*6/uL Low 4.2-5.4 [facility] Automated blood erythrocyte count 2.53 M/mm3 Low 4.2-5.4 [facility] Serum creatinine measurement (mass/volume)Ordered By: Millie Massey on 08-26-2024 Creatinine [Mass/Vol] 1.49 mg/dL High 0.70-1.20 [facility] Serum globulin measurementOr dered By: Millie Massey on 08-26-2024 Globulin (S) [Mass/Vol] 3.3 g/dL 2.2-4.2 [facility] Serum globulin measurement 3.3 g/dL 2.2-4.2 [facility] Serum glucose measurement (m ass/volume)Ordered By: Millie Massey on 08-26-2024 Glucose [Mass/Vol] 93 mg/dL 70-99 [facility] Serum or plasma alanine camargo otransferase (ALT) measurementOrdered By: Millie Massey on 08-26-2024 ALT [Catalytic activity/Vol] 10 U/L <35 [facility] Serum or plasma albumin megan urement (mass/volume)Ordered By: Millie Massey on 08-26-2024 Albumin [Mass/Vol] 2.1 g/dL Low 3.4-4.8 [facility] Serum or plasma albumin/glob ulin mass ratioOrdered By: Millie Massey on 08-26-2024 Albumin/Globulin [Mass ratio] 0.6 {ratio} Low 0.9-2.4 [facility] Serum or plasma alkaline susan sphatase measurementOrdered By: Millie Massey on 08-26-2024 ALP [Catalytic activity/Vol] 81 U/L 35-104 [facility] Serum or plasma calcium megan urement (mass/volume)Ordered By: Millie Massey on 08-26-2024 Calcium [Mass/Vol] 8.2 mg/dL 7.6-11.0 [facility] Serum or plasma urea nitroge n measurement (mass/volume)Ordered By: Millie Massey on 08-26-2024 Urea nitrogen [Mass/Vol] 36 mg/dL High 09-14 [facility] Sodium levelOrdered By: Silvana Massey on 08-26-2024 Sodium [Moles/Vol] 131 mmol/L Low 133-145 [facility] Sodium level 131 mmol/L Low 133-145 [facility] Total proteinOrdered By: Lesli Massey on 08-26-2024 Protein [Mass/Vol] 5.4 g/dL Low 5.9-8.4 [facility] Total protein 5.4 g/dL Low 5.9-8.4 [facility] Urea nitrogen [Mass/Vol]Orde red By: Millie Massey on 08-26-2024 Serum or plasma urea nitrogen measurement (mass/volume) 36 mg/dL High - [facility] White blood cell (WBC) count Ordered By: Millie Massey on 08-26-2024 WBC (Bld) [#/Vol] 4.2 10*3/uL Low 4.4-11.0 [facility] White blood cell (WBC) count 4.2 K/mm3 Low 4.4-11.0 [facility] Anion gap [Moles/Vol]Ordered By: Millie Massey on 08-22-2024 Anion gap in Serum or Plasma 7 5-15 [facility] Anion gap in Serum or Plasma Ordered By: Millie Massey on 08-22-2024 Anion gap [Moles/Vol] 7 mmol/L 5-15 [facility] BUN/creatinine ratioOrdered By: Millie Massey on 08-22-2024 Urea nitrogen/Creatinine [Mass ratio] 20.6 mg/mg High 10-20 [facility] BUN/creatinine ratio 20.6 RATIO High 10-20 [facility] Basic Metabolic Profile (BMP )on 08-22-2024 BUN/CRE 20.6 RATIO High 10-20 [facility] Comment on above: Order Comment: 206.1 Performed By: #### L 500.2500 ####[facility] [address] [place], [address] Calcium [Mass/Vol] 7.7 mg/dL Normal 7.6-11.0 [facility] Comment on above: Order Comment: 206.1 Performed By: #### L 500.2500 ####[facility] [address] [place], [address] Chloride [Moles/Vol] 99 mmol/L Normal 98-108 [facility] Comment on above: Order Comment: 206.1 Performed By: #### L 500.2500 ####[facility] [address] [place], [address] CO2 [Moles/Vol] 30.8 mmol/L Normal 21.0-32.0 [facility] Comment on above: Order Comment: 206.1 Performed By: #### L 500.2500 ####[facility] [address] [place], [address] Creatinine [Mass/Vol] 0.89 mg/dL Normal 0.70-1.20 [facility] Comment on above: Order Comment: 206.1 Performed By: #### L 500.2500 ####[facility] [address] [place], [address] GAP 7 Normal 5-15 [facility] Comment on above: Order Comment: 206.1 Performed By: #### L 500.2500 ####[facility] [address] [place], [address] GFR/1.73 sq M.predicted among non-blacks MDRD (S/P/Bld) [Vol rate/Area] 73 mL/min/{1.73_m2} Normal >60 [facility] Comment on above: Order Comment: 206.1 Result Comment: mL/m in/1.73m2 CKD-EPI Creatinine Equation (2020) Performed By: #### L 500.2500 ####[facility] [address] [place], [address] Glucose [Mass/Vol] 113 mg/dL High 70-99 [facility] Comment on above: Order Comment: 206.1 Performed By: #### L 500.2500 ####[facility] [address] [place], [address] Potassium [Moles/Vol] 3.4 mmol/L Normal 3.3-5.1 [facility] Comment on above: Order Comment: 206.1 Performed By: #### L 500.2500 ####[facility] [address] [place], [address] Sodium [Moles/Vol] 136 mmol/L Normal 133-145 [facility] Comment on above: Order Comment: 206.1 Performed By: #### L 500.2500 ####[facility] [address] [place], [address] Urea nitrogen [Mass/Vol] 18 mg/dL Normal 4-19 [facility] Comment on above: Order Comment: 206.1 Performed By: #### L 500.2500 ####[facility] [address] [place], [address] Calcium [Mass/Vol]Ordered By : Millie Massey on 08-22-2024 Serum or plasma calcium measurement (mass/volume) 7.7 mg/dL 7.6-11.0 [facility] Carbon dioxide, total [Moles /volume] in Central venous bloodOrdered By: Millie Massey on 08-22-2024 CO2 [Moles/Vol] 30.8 mmol/L 21.0-32.0 [facility] Carbon dioxide, total [Moles/volume] in Central venous blood 30.8 mmol/L 21.0-32.0 [facility] Chloride assayOrdered By: Carter Massey on 08-22-2024 Chloride [Moles/Vol] 99 mmol/L 98-108 [facility] Chloride assay 99 mmol/L 98-108 [facility] Creatinine [Mass/Vol]Ordered By: Millie Massey on 08-22-2024 Serum creatinine measurement (mass/volume) 0.89 mg/dL 0.70-1.20 [facility] GFR/1.73 sq M.predicted víctor g non-blacks MDRD (S/P/Bld) [Vol rate/Area]Ordered By: Millie Massey on 08-22-2024 Glomerular filtration rate (GFR) estimation/1.73 sq m using serum, plasma, or whole b 73 >60 [facility] Glomerular filtration rate ( GFR) estimation/1.73 sq m using serum, plasma, or whole bOrdered By: Millie Massey on 08-22-2024 GFR/1.73 sq M.predicted among non-blacks MDRD (S/P/Bld) [Vol rate/Area] 73 mL/min/{1.73_m2} >60 [facility] Glucose [Mass/Vol]Ordered By : Millie Massey on 08-22-2024 Serum glucose measurement (mass/volume) 113 mg/dL High 70-99 [facility] Potassium (Unsp spec) [Mass/ Vol]Ordered By: Millie Massey on 08-22-2024 Potassium measurement (mass/volume) 3.4 mmol/L 3.3-5.1 [facility] Potassium measurement (mass/ volume)Ordered By: Millie Massey on 08-22-2024 Potassium (Unsp spec) [Mass/Vol] 3.4 mmol/L 3.3-5.1 [facility] Serum creatinine measurement (mass/volume)Ordered By: Millie Massey on 08-22-2024 Creatinine [Mass/Vol] 0.89 mg/dL 0.70-1.20 [facility] Serum glucose measurement (m ass/volume)Ordered By: Millie Massey on 08-22-2024 Glucose [Mass/Vol] 113 mg/dL High 70-99 [facility] Serum or plasma calcium megan urement (mass/volume)Ordered By: Millie Massey on 08-22-2024 Calcium [Mass/Vol] 7.7 mg/dL 7.6-11.0 [facility] Serum or plasma urea nitroge n measurement (mass/volume)Ordered By: Millie Massey on 08-22-2024 Urea nitrogen [Mass/Vol] 18 mg/dL 09-14 [facility] Sodium levelOrdered By: Silvana Massey on 08-22-2024 Sodium [Moles/Vol] 136 mmol/L 133-145 [facility] Sodium level 136 mmol/L 133-145 [facility] Urea nitrogen [Mass/Vol]Orde red By: Millie Massey on 08-22-2024 Serum or plasma urea nitrogen measurement (mass/volume) 18 mg/dL 09-14 [facility] Amylase Body Fluidon 025 AMYLASE,BDY FLD 30 U/L Normal . [facility] Comment on above: Order Comment: Test( s) [id number], Body Fluidwas developed and its performance characteristicsdetermined by [employer]. It has not been cleared or approvedby [...] Saliva : : : (Mixed Glands) : [id number] : : : : Blaze Penny V. Reference Intervals for Adults and Children 2008. Ninth Edition (V9.1) [employer], [facility]ly [facility]; [place]: November 2008. Performed By: #### L 3800.0400, L3800.0050 ####[facility] [address] [place], [address] Culture, Anaerobic Any Sourc tim 08-20-2024 CUAN No growth in 5 days. Normal [facility] Comment on above: Performed By: #### L 350.1000, L504.0250, L503.0300, L200.0200, L503.0100, M100.2900, M100.2000, M100.4001 ####[facility] [address] [place], [address] pH, Body Fluid [id number] 08-20 PH, BODY FLUID 7.3 Normal Not Estab. [facility] Comment on above: Order Comment: Test( s) [id number], Body Fluidwas developed and its performance characteristicsdetermined [...] interpretation. Performed By: #### L 3800.0400, L3800.0050 ####[facility] [address] [place], [address] Anion gap [Moles/Vol]Ordered By: Millie Massey on 08-19-2024 Anion gap in Serum or Plasma 7 5-15 [facility] Anion gap in Serum or Plasma Ordered By: Millie Massey on 08-19-2024 Anion gap [Moles/Vol] 7 mmol/L 5-15 [facility] BUN/creatinine ratioOrdered By: Millie Massey on 08-19-2024 Urea nitrogen/Creatinine [Mass ratio] 28.6 mg/mg High 10-20 [facility] BUN/creatinine ratio 28.6 RATIO High 10-20 [facility] Basic Metabolic Profile (BMP )on 08-19-2024 BUN/CRE 28.6 RATIO High 10-20 [facility] Comment on above: Order Comment: Performed By: #### L 500.2500, L100.0500, L501.5200 ####[facility] [address] [place], [address] Calcium [Mass/Vol] 8.1 mg/dL Normal 7.6-11.0 [facility] Comment on above: Order Comment: Performed By: #### L 500.2500, L100.0500, L501.5200 ####[facility] [address] [place], [address] Chloride [Moles/Vol] 100 mmol/L Normal 98-108 [facility] Comment on above: Order Comment: Performed By: #### L 500.2500, L100.0500, L501.5200 ####[facility] [address] [place], [address] CO2 [Moles/Vol] 23.0 mmol/L Normal 21.0-32.0 [facility] Comment on above: Order Comment: Performed By: #### L 500.2500, L100.0500, L501.5200 ####[facility] [address] [place], [address] Creatinine [Mass/Vol] 1.34 mg/dL High 0.70-1.20 [facility] Comment on above: Order Comment: Performed By: #### L 500.2500, L100.0500, L501.5200 ####[facility] [address] [place], [address] GAP 7 Normal 5-15 [facility] Comment on above: Order Comment: Performed By: #### L 500.2500, L100.0500, L501.5200 ####[facility] [address] [place], [address] GFR/1.73 sq M.predicted among non-blacks MDRD (S/P/Bld) [Vol rate/Area] 45 mL/min/{1.73_m2} Low >60 [facility] Comment on above: Order Comment: Result Comment: mL/m in/1.73m2 CKD-EPI Creatinine Equation (2020) Performed By: #### L 500.2500, L100.0500, L501.5200 ####[facility] [address] [place], [address] Glucose [Mass/Vol] 89 mg/dL Normal 70-99 [facility] Comment on above: Order Comment: Performed By: #### L 500.2500, L100.0500, L501.5200 ####[facility] [address] [place], [address] Potassium [Moles/Vol] 6.8 mmol/L Invalid Interpretation Code 3.3-5.1 [facility] Comment on above: Order Comment: Result Comment: Hemo lysis present, Results??could be affected.??Critical Result(s) Called at: 0635 by: WALTER KENNEDY TO JACKIE SAUER??Results read back by same. Performed By: #### L 500.2500, L100.0500, L501.5200 ####[facility] [address] [place], [address] Sodium [Moles/Vol] 130 mmol/L Low 133-145 [facility] Comment on above: Order Comment: Performed By: #### L 500.2500, L100.0500, L501.5200 ####[facility] [address] [place], [address] Urea nitrogen [Mass/Vol] 38 mg/dL High 4-19 [facility] Comment on above: Order Comment: Performed By: #### L 500.2500, L100.0500, L501.5200 ####[facility] [address] [place], [address] CBC-Complete Blood Cnt No Di ffon 08-19-2024 Erythrocyte distribution width (RBC) [Ratio] 23.3 % High 11.6-14.6 [facility] Comment on above: Order Comment: Performed By: #### L 500.2500, L100.0500, L501.5200 ####[facility] [address] [place], [address] Hematocrit (Bld) [Volume fraction] 25.7 % Low 37-47 [facility] Comment on above: Order Comment: Performed By: #### L 500.2500, L100.0500, L501.5200 ####[facility] [address] [place], [address] Hemoglobin (Bld) [Mass/Vol] 7.8 g/dL Low 12.0-15.0 [facility] Comment on above: Order Comment: Performed By: #### L 500.2500, L100.0500, L501.5200 ####[facility] [address] [place], [address] MCH (RBC) [Entitic mass] 28.4 pg Normal 27.0-32.0 [facility] Comment on above: Order Comment: Performed By: #### L 500.2500, L100.0500, L501.5200 ####[facility] [address] [place], [address] MCHC (RBC) [Mass/Vol] 30.4 g/dL Low 32-36 [facility] Comment on above: Order Comment: -1 Performed By: #### L 500.2500, L100.0500, L501.5200 ####[facility] [address] [place], [address] MCV (RBC) [Entitic vol] 93.5 fL Normal 81-99 [facility] Comment on above: Order Comment: -1 Performed By: #### L 500.2500, L100.0500, L501.5200 ####[facility] [address] [place], [address] Platelet mean volume (Bld) [Entitic vol] 10.2 fL Normal 6.2-12.0 [facility] Comment on above: Order Comment: -1 Performed By: #### L 500.2500, L100.0500, L501.5200 ####[facility] [address] [place], [address] Platelets (Bld) [#/Vol] 168 10*3/uL Normal 150-450 [facility] Comment on above: Order Comment: -1 Performed By: #### L 500.2500, L100.0500, L501.5200 ####[facility] [address] [place], [address] RBC (Bld) [#/Vol] 2.75 10*6/uL Low 4.2-5.4 [facility] Comment on above: Order Comment: -1 Performed By: #### L 500.2500, L100.0500, L501.5200 ####[facility] [address] [place], [address] RDW SD 76.4 fl High 35.1-43.9 [facility] Comment on above: Order Comment: -1 Performed By: #### L 500.2500, L100.0500, L501.5200 ####[facility] [address] [place], [address] WBC (Bld) [#/Vol] 3.8 10*3/uL Low 4.4-11.0 [facility] Comment on above: Order Comment: Performed By: #### L 500.2500, L100.0500, L501.5200 ####[facility] [address] [place], [address] Calcium [Mass/Vol]Ordered By : Millie Massey on 08-19-2024 Serum or plasma calcium measurement (mass/volume) 8.1 mg/dL 7.6-11.0 [facility] Carbon dioxide, total [Moles /volume] in Central venous bloodOrdered By: Millie Massey on 08-19-2024 CO2 [Moles/Vol] 23.0 mmol/L 21.0-32.0 [facility] Carbon dioxide, total [Moles/volume] in Central venous blood 23.0 mmol/L 21.0-32.0 [facility] Chloride assayOrdered By: Carter Massey on 08-19-2024 Chloride [Moles/Vol] 100 mmol/L 98-108 [facility] Chloride assay 100 mmol/L 98-108 [facility] Creatinine [Mass/Vol]Ordered By: Millie Massey on 08-19-2024 Serum creatinine measurement (mass/volume) 1.34 mg/dL High 0.70-1.20 [facility] Culture, Blood (WB)on 2024 CUB Blood cultures x2, f rom two different sites No growth in 5 days. Normal [facility] Comment on above: Performed By: #### M 200.1000 ####[facility] [address] [place], [address] CUB Blood cultures x2, f rom two different sites No growth in 5 days. Normal [facility] Comment on above: Performed By: #### M 200.1000, L503.6005, L501.4021 ####[facility] [address] [place], [address] Erythrocyte distribution wid th (RBC) [Ratio]Ordered By: Millie Massey on 08-19-2024 Erythrocyte distribution width ratio 23.3 % High 11.6-14.6 [facility] Erythrocyte distribution width standard deviation 76.4 fl High 35.1-43.9 [facility] Erythrocyte distribution wid th ratioOrdered By: Millie Massey on 08-19-2024 Erythrocyte distribution width (RBC) [Ratio] 23.3 % High 11.6-14.6 [facility] Erythrocyte distribution wid th standard deviationOrdered By: Millie Massey on 08-19-2024 Erythrocyte distribution width (RBC) [Ratio] 76.4 fl High 35.1-43.9 [facility] GFR/1.73 sq M.predicted víctor g non-blacks MDRD (S/P/Bld) [Vol rate/Area]Ordered By: Millie Massey on 08-19-2024 Glomerular filtration rate (GFR) estimation/1.73 sq m using serum, plasma, or whole b 45 Low >60 [facility] Glomerular filtration rate ( GFR) estimation/1.73 sq m using serum, plasma, or whole bOrdered By: Millie Massey on 08-19-2024 GFR/1.73 sq M.predicted among non-blacks MDRD (S/P/Bld) [Vol rate/Area] 45 mL/min/{1.73_m2} Low >60 [facility] Glucose [Mass/Vol]Ordered By : Millie Massey on 08-19-2024 Serum glucose measurement (mass/volume) 89 mg/dL 70-99 [facility] Hematocrit Auto (Bld) [Volum e fraction]Ordered By: Millie Massey on 08-19-2024 Hematocrit (Bld) [Volume fraction] 25.7 % Low 37-47 [facility] Automated blood hematocrit (percentage) 25.7 % Low 37-47 [facility] Hemoglobin measurementOrdere d By: Millie Massey on 08-19-2024 Hemoglobin (Bld) [Mass/Vol] 7.8 g/dL Low 12.0-15.0 [facility] Hemoglobin measurement 7.8 g/dL Low 12.0-15.0 [facility] MCV (RBC) [Entitic vol]Order ed By: Millie Massey on 08-19-2024 MCV (mean corpuscular volume) determination 93.5 fL 81-99 [facility] MCV (mean corpuscular volume ) determinationOrdered By: Millie Massey on 08-19-2024 MCV (RBC) [Entitic vol] 93.5 fL 81-99 [facility] Magnesiumon 08-19-2024 Magnesium [Mass/Vol] 1.6 mg/dL Normal 1.5-2.2 [facility] Comment on above: Order Comment: Performed By: #### L 500.2500, L100.0500, L501.5200 ####[facility] [address] [place], [address] Magnesium (Unsp spec) [Mass/ Vol]Ordered By: Millie Massey on 08-19-2024 Magnesium measurement (mass/volume) 1.6 mg/dL 1.5-2.2 [facility] Magnesium measurement (mass/ volume)Ordered By: Millie Massey on 08-19-2024 Magnesium (Unsp spec) [Mass/Vol] 1.6 mg/dL 1.5-2.2 [facility] Mean corpuscular hemoglobin (MCH) determinationOrdered By: Millie Massey on 08-19-2024 MCH (RBC) [Entitic mass] 28.4 pg 27.0-32.0 [facility] Mean corpuscular hemoglobin (MCH) determination 28.4 pg 27.0-32.0 [facility] Mean corpuscular hemoglobin concentration (MCHC) determinationOrdered By: Millie Massey on 08-19-2024 Mean corpuscular hemoglobin concentration (MCHC) determination 30.4 g/dL Low 32-36 [facility] Mean platelet volume determi nationOrdered By: Millie Massey on 08-19-2024 Mean platelet volume determination 10.2 fl 6.2-12.0 [facility] Platelet countOrdered By: Carter Massey on 08-19-2024 Platelets (Bld) [#/Vol] 168 10*3/uL 150-450 [facility] Platelet count 168 K/mm3 150-450 [facility] Potassium (Unsp spec) [Mass/ Vol]Ordered By: Millie Massey on 08-19-2024 Potassium measurement (mass/volume) 6.8 mmol/L High 3.3-5.1 [facility] Potassium measurement (mass/ volume)Ordered By: Millie Massey on 08-19-2024 Potassium (Unsp spec) [Mass/Vol] 6.8 mmol/L High 3.3-5.1 [facility] RBC Auto (Bld) [#/Vol]Ordere d By: Millie Massey on 08-19-2024 RBC (Bld) [#/Vol] 2.75 10*6/uL Low 4.2-5.4 [facility] Automated blood erythrocyte count 2.75 M/mm3 Low 4.2-5.4 [facility] Serum creatinine measurement (mass/volume)Ordered By: Millie Massey on 08-19-2024 Creatinine [Mass/Vol] 1.34 mg/dL High 0.70-1.20 [facility] Serum glucose measurement (m ass/volume)Ordered By: Millie Massey on 08-19-2024 Glucose [Mass/Vol] 89 mg/dL 70-99 [facility] Serum or plasma calcium megan urement (mass/volume)Ordered By: Millie Massey on 08-19-2024 Calcium [Mass/Vol] 8.1 mg/dL 7.6-11.0 [facility] Serum or plasma urea nitroge n measurement (mass/volume)Ordered By: Millie Massey on 08-19-2024 Urea nitrogen [Mass/Vol] 38 mg/dL High 4-19 [facility] Sodium levelOrdered By: Silvana Massey on 08-19-2024 Sodium [Moles/Vol] 130 mmol/L Low 133-145 [facility] Sodium level 130 mmol/L Low 133-145 [facility] Urea nitrogen [Mass/Vol]Orde red By: Millie Massey on 03-24-2025 Serum or plasma urea nitrogen measurement (mass/volume) 38 mg/dL High 4-19 [facility] White blood cell (WBC) count Ordered By: Millie Massey on 08-19-2024 WBC (Bld) [#/Vol] 3.8 10*3/uL Low 4.4-11.0 [facility] White blood cell (WBC) count 3.8 K/mm3 Low 4.4-11.0 [facility] Body Fluid Culton 08-18-2024 BFC No growth aerobically. Normal [facility] Comment on above: Performed By: #### L 350.1000, L504.0250, L503.0300, L200.0200, L503.0100, M100.2900, M100.2000, M100.4001 ####[facility] [address] [place], [address] Urine Cultureon 08-18-2024 URC Normal [facility] Comment on above: Performed By: #### M 100.2200 ####[facility] [address] [place], [address] Absolute lymphocyte countOrd ered By: Nikolas Magaña on 08-17-2024 Lymphocytes Auto (Unsp spec) [#/Vol] 0.59 10*3/uL Low 0.83-4.51 [facility] Absolute neutrophil countOrd ered By: Nikolas Magaña on 08-17-2024 Absolute neutrophil count 3.2 X10^3/uL 2.0-7.7 [facility] Anion gap [Moles/Vol]Ordered By: Nikolsa Magaña on 08-17-2024 Anion gap in Serum or Plasma 12 5- [facility] Anion gap in Serum or Plasma Ordered By: Nikolas Magaña on 08-17-2024 Anion gap [Moles/Vol] 12 mmol/L 5-15 [facility] Automated lymphocyte count a s percentage of total leukocytesOrdered By: Nikolas Magaña on 08-17-2024 Lymphocytes/100 WBC Auto (Unsp spec) 13.4 % Low 19-41 [facility] BUN/creatinine ratioOrdered By: Nikolas Magaña on 08-17-2024 Urea nitrogen/Creatinine [Mass ratio] 20.8 mg/mg High 10-20 [facility] BUN/creatinine ratio 20.8 RATIO High 10-20 [facility] Basic Metabolic Profile (BMP )on 08-17-2024 BUN/CRE 20.8 RATIO High 10-20 [facility] Comment on above: Performed By: #### L 100.0100, L500.2500 ####[facility] [address] [place], [address] Calcium [Mass/Vol] 8.2 mg/dL Normal 7.6-11.0 [facility] Comment on above: Performed By: #### L 100.0100, L500.2500 ####[facility] [address] [place], [address] Chloride [Moles/Vol] 101 mmol/L Normal 98-108 [facility] Comment on above: Performed By: #### L 100.0100, L500.2500 ####[facility] [address] [place], [address] CO2 [Moles/Vol] 19.8 mmol/L Low 21.0-32.0 [facility] Comment on above: Performed By: #### L 100.0100, L500.2500 ####[facility] [address] [place], [address] Creatinine [Mass/Vol] 1.07 mg/dL Normal 0.70-1.20 [facility] Comment on above: Performed By: #### L 100.0100, L500.2500 ####[facility] [address] [place], [address] ECRCL 42.17 ml/min Low 50-250 [facility] Comment on above: Performed By: #### L 100.0100, L500.2500 ####[facility] [address] [place], [address] GAP 12 Normal 5-15 [facility] Comment on above: Performed By: #### L 100.0100, L500.2500 ####[facility] [address] [place], [address] GFR/1.73 sq M.predicted among non-blacks MDRD (S/P/Bld) [Vol rate/Area] 59 mL/min/{1.73_m2} Low >60 [facility] Comment on above: Result Comment: mL/m in/1.73m2 CKD-EPI Creatinine Equation (2020) Performed By: #### L 100.0100, L500.2500 ####[facility] [address] [place], [address] Glucose [Mass/Vol] 83 mg/dL Normal 70-99 [facility] [facility] Comment on above: Performed By: #### L 100.0100, L500.2500 ####[facility] [address] [place], [address] Potassium [Moles/Vol] 4.7 mmol/L Normal 3.3-5.1 [facility] Comment on above: Result Comment: Hemo lysis present, Results??could be affected.?? Performed By: #### L 100.0100, L500.2500 ####[facility] [address] [place], [address] Sodium [Moles/Vol] 133 mmol/L Normal 133-145 [facility] Comment on above: Performed By: #### L 100.0100, L500.2500 ####[facility] [address] [place], [address] Urea nitrogen [Mass/Vol] 22 mg/dL High 4-19 [facility] Comment on above: Performed By: #### L 100.0100, L500.2500 ####[facility] [address] [place], [address] Basophil percentageOrdered B y: Nikolas Magaña on 08-17-2024 Basophils/100 WBC (Bld) 0.9 % 0-1 [facility] Basophil percentage 0.9 % 0-1 [facility] Blood polychromasia detectio n by light microscopyOrdered By: Nikolas Magaña on 08-17-2024 Polychromasia LM Ql (Bld) 2+ [facility] CBC W/Diff, Automatedon 07-28 OVALOCYTE 1+ Normal [facility] Comment on above: Performed By: #### L 100.0100, L500.2500 ####[facility] [address] [place], [address] Anisocytosis Ql (Bld) 1+ Normal [facility] Comment on above: Performed By: #### L 100.0100, L500.2500 ####[facility] [address] [place], [address] POLYCHROMASIA 2+ Normal [facility] Comment on above: Performed By: #### L 100.0100, L500.2500 ####[facility] [address] [place], [address] Calcium [Mass/Vol]Ordered By : Nikolas Magaña on 08-17-2024 Serum or plasma calcium measurement (mass/volume) 8.2 mg/dL 7.6-11.0 [facility] Carbon dioxide, total [Moles /volume] in Central venous bloodOrdered By: Nikolas Magaña on 08-17-2024 CO2 [Moles/Vol] 19.8 mmol/L Low 21.0-32.0 [facility] Carbon dioxide, total [Moles/volume] in Central venous blood 19.8 mmol/L Low 21.0-32.0 [facility] Chloride assayOrdered By: Oscar Magaña on 08-17-2024 Chloride [Moles/Vol] 101 mmol/L 98-108 [facility] Chloride assay 101 mmol/L 98-108 [facility] Creatinine [Mass/Vol]Ordered By: Nikolas Magaña on 08-17-2024 Serum creatinine measurement (mass/volume) 1.07 mg/dL 0.70-1.20 [facility] Eosinophil percentageOrdered By: Nikolas Magaña on 08-17-2024 Eosinophils/100 WBC (Bld) 3.4 % 0-5 [facility] Eosinophil percentage 3.4 % 0-5 [facility] Erythrocyte distribution wid th (RBC) [Ratio]Ordered By: Nikolas Magaña on 08-17-2024 Erythrocyte distribution width ratio 23.1 % High 11.6-14.6 [facility] Erythrocyte distribution wid th ratioOrdered By: Nikolas Magaña on 08-17-2024 Erythrocyte distribution width (RBC) [Ratio] 23.1 % High 11.6-14.6 [facility] Erythrocyte distribution wid th standard deviationOrdered By: Nikolas Magaña on 08-17-2024 Erythrocyte distribution width (RBC) [Ratio] 74.1 fl High 35.1-43.9 [facility] Erythrocyte distribution width standard deviation 74.1 fl High 35.1-43.9 [facility] Estimation of creatinine austen aranceOrdered By: Nikolas Magaña on 08-17-2024 Estimation of creatinine clearance 42.17 ml/min Low 50-250 [facility] GFR/1.73 sq M.predicted víctor g non-blacks MDRD (S/P/Bld) [Vol rate/Area]Ordered By: Nikolas Magaña on 08-17-2024 Glomerular filtration rate (GFR) estimation/1.73 sq m using serum, plasma, or whole b 59 Low >60 [facility] Glomerular filtration rate ( GFR) estimation/1.73 sq m using serum, plasma, or whole bOrdered By: Nikolas Magaña on 08-17-2024 GFR/1.73 sq M.predicted among non-blacks MDRD (S/P/Bld) [Vol rate/Area] 59 mL/min/{1.73_m2} Low >60 [facility] Glucoseon 08-17-2024 Glucose [Mass/Vol] 73 mg/dL Normal 70-99 [facility] Comment on above: Performed By: #### L 501.0100 ####[facility] [address] [place], [address] Glucose [Mass/Vol]Ordered By : Nikolas Magaña on 08-17-2024 Serum glucose measurement (mass/volume) 83 mg/dL 70-99 [facility] Hematocrit Auto (Bld) [Volum e fraction]Ordered By: Nikolas Magaña on 08-17-2024 Hematocrit (Bld) [Volume fraction] 34.6 % Low 37-47 [facility] Automated blood hematocrit (percentage) 34.6 % Low 37-47 [facility] Hemoglobin measurementOrdere d By: Nikolas Magaña on 08-17-2024 Hemoglobin (Bld) [Mass/Vol] 10.5 g/dL Low 12.0-15.0 [facility] Hemoglobin measurement 10.5 g/dL Low 12.0-15.0 [facility] Immature granulocytes/100 WB C Auto (Bld)Ordered By: Nikolas Magaña on 08-17-2024 Immature granulocytes/100 WBC (Bld) 1.800 % High 0.0-0.9 [facility] Automated immature granulocyte percentage 1.800 % High 0.0-0.9 [facility] Lymphocytes Auto (Unsp spec) [#/Vol]Ordered By: Nikolas Magaña on 08-17-2024 Absolute lymphocyte count 0.59 X10^3/uL Low 0.83-4.51 [facility] Lymphocytes/100 WBC Auto (Un sp spec)Ordered By: Nikolas Magaña on 08-17-2024 Automated lymphocyte count as percentage of total leukocytes 13.4 % Low 19-41 [facility] MCV (RBC) [Entitic vol]Order ed By: Nikolas Magaña on 08-17-2024 MCV (mean corpuscular volume) determination 93.5 fL 81-99 [facility] MCV (mean corpuscular volume ) determinationOrdered By: Nikolas Magaña on 08-17-2024 MCV (RBC) [Entitic vol] 93.5 fL 81-99 [facility] Mean corpuscular hemoglobin (MCH) determinationOrdered By: Nikolas Magaña on 08-17-2024 MCH (RBC) [Entitic mass] 28.4 pg 27.0-32.0 [facility] Mean corpuscular hemoglobin (MCH) determination 28.4 pg 27.0-32.0 [facility] Mean corpuscular hemoglobin concentration (MCHC) determinationOrdered By: Nikolas Magaña on 08-17-2024 Mean corpuscular hemoglobin concentration (MCHC) determination 30.3 g/dL Low 32-36 [facility] Mean platelet volume determi nationOrdered By: Nikolas Magaña on 08-17-2024 Mean platelet volume determination 9.2 fl 6.2-12.0 [facility] Monocyte percentageOrdered B y: Nikolas Magaña on 08-17-2024 Monocytes/100 WBC (Bld) 7.0 % 0-10 [facility] Monocyte percentage 7.0 % 0-10 [facility] Neutrophil percentageOrdered By: Nikolas Magaña on 08-17-2024 Neutrophils/100 WBC (Bld) 73.5 % High 47-70 [facility] Neutrophil percentage 73.5 % High 47-70 [facility] Nucleated red blood cell per centageOrdered By: Nikolas Magaña on 08-17-2024 Nucleated red blood cell percentage 0 % 0-5 [facility] Ovalocyte detectionOrdered B y: Nikolas Magaña on 08-17-2024 Ovalocytes LM Ql (Bld) 1+ [facility] Ovalocyte detection 1+ [facility] Platelet countOrdered By: Oscar Magaña on 08-17-2024 Platelets (Bld) [#/Vol] 146 10*3/uL Low 150-450 [facility] Platelet count 146 K/mm3 Low 150-450 [facility] Polychromasia LM Ql (Bld)Ord ered By: Nikolas Magaña on 08-17-2024 Blood polychromasia detection by light microscopy 2+ [facility] Potassium (Unsp spec) [Mass/ Vol]Ordered By: Nikolas Magaña on 08-17-2024 Potassium measurement (mass/volume) 4.7 mmol/L 3.3-5.1 [facility] Potassium measurement (mass/ volume)Ordered By: Nikolas Magaña on 08-17-2024 Potassium (Unsp spec) [Mass/Vol] 4.7 mmol/L 3.3-5.1 [facility] RBC Auto (Bld) [#/Vol]Ordere d By: Nikolas Magaña on 08-17-2024 RBC (Bld) [#/Vol] 3.70 10*6/uL Low 4.2-5.4 [facility] Automated blood erythrocyte count 3.70 M/mm3 Low 4.2-5.4 [facility] Serum creatinine measurement (mass/volume)Ordered By: Nikolas Magaña on 08-17-2024 Creatinine [Mass/Vol] 1.07 mg/dL 0.70-1.20 [facility] Serum glucose measurement (m ass/volume)Ordered By: Nikolas Magaña on 08-17-2024 Glucose [Mass/Vol] 83 mg/dL 70-99 [facility] Serum or plasma calcium megan urement (mass/volume)Ordered By: Nikolas Magaña on 08-17-2024 Calcium [Mass/Vol] 8.2 mg/dL 7.6-11.0 [facility] Serum or plasma urea nitroge n measurement (mass/volume)Ordered By: Nikolas Magaña on 08-17-2024 Urea nitrogen [Mass/Vol] 22 mg/dL High 09-14 [facility] Sodium levelOrdered By: Hemanth Magaña on 08-17-2024 Sodium [Moles/Vol] 133 mmol/L 133-145 [facility] Sodium level 133 mmol/L 133-145 [facility] Urea nitrogen [Mass/Vol]Orde red By: Nikolas Magaña on 08-17-2024 Serum or plasma urea nitrogen measurement (mass/volume) 22 mg/dL High 09-14 [facility] Venous duplex ultrasound rep ortOrdered By: Saul Silva on 08-17-2024 US Vein [facility] Other Phone: White blood cell (WBC) count Ordered By: Nikolas Magaña on 08-17-2024 WBC (Bld) [#/Vol] 4.4 10*3/uL 4.4-11.0 [facility] White blood cell (WBC) count 4.4 K/mm3 4.4-11.0 [facility] Basic Metabolic Profile (BMP )on 08-16-2024 BUN/CRE 25.9 RATIO High 10-20 [facility] Comment on above: Performed By: #### L 100.0100, L500.2500 ####[facility] [address] [place], [address] Calcium [Mass/Vol] 8.0 mg/dL Normal 7.6-11.0 [facility] Comment on above: Performed By: #### L 100.0100, L500.2500 ####[facility] [address] [place], [address] Chloride [Moles/Vol] 102 mmol/L Normal 98-108 [facility] Comment on above: Performed By: #### L 100.0100, L500.2500 ####[facility] [address] [place], [address] CO2 [Moles/Vol] 20.8 mmol/L Low 21.0-32.0 [facility] Comment on above: Performed By: #### L 100.0100, L500.2500 ####[facility] [address] [place], [address] Creatinine [Mass/Vol] 1.27 mg/dL High 0.70-1.20 [facility] Comment on above: Performed By: #### L 100.0100, L500.2500 ####[facility] [address] [place], [address] ECRCL 38.36 ml/min Low 50-250 [facility] Comment on above: Performed By: #### L 100.0100, L500.2500 ####[facility] [address] [place], [address] GAP 10 Normal 5-15 [facility] Comment on above: Performed By: #### L 100.0100, L500.2500 ####[facility] [address] [place], [address] GFR/1.73 sq M.predicted among non-blacks MDRD (S/P/Bld) [Vol rate/Area] 48 mL/min/{1.73_m2} Low >60 [facility] Comment on above: Result Comment: mL/m in/1.73m2 CKD-EPI Creatinine Equation (2020) Performed By: #### L 100.0100, L500.2500 ####[facility] [address] [place], [address] Glucose [Mass/Vol] 89 mg/dL Normal 70-99 [facility] Comment on above: Performed By: #### L 100.0100, L500.2500 ####[facility] [address] [place], [address] Potassium [Moles/Vol] 5.0 mmol/L Normal 3.3-5.1 [facility] Comment on above: Performed By: #### L 100.0100, L500.2500 ####[facility] [address] [place], [address] Sodium [Moles/Vol] 132 mmol/L Low 133-145 [facility] Comment on above: Performed By: #### L 100.0100, L500.2500 ####[facility] [address] [place], [address] Urea nitrogen [Mass/Vol] 33 mg/dL High 4-19 [facility] Comment on above: Performed By: #### L 100.0100, L500.2500 ####[facility] [address] [place], [address] Bedside Glucoseon 08-16-2024 FINGERSTICK GLU 24 mg/dL Invalid Interpretation Code 74-106 [facility] Comment on above: Result Comment: Dr George mathis FollowedMANAGEMENT OF PATIENT CARE PER NURSING PROTOCOL Performed By: #### L 501.080 ####[facility] [address] [place], [address] FINGERSTICK GLU 57 mg/dL Low 74-106 [facility] Comment on above: Result Comment: LUIZA DIAZ OF PATIENT CARE PER NURSING PROTOCOL Performed By: #### L 501.080 ####[facility] [address] [place], [address] FINGERSTICK GLU 80 mg/dL Normal 74-106 [facility] Comment on above: Result Comment: LUIZA DIAZ OF PATIENT CARE PER NURSING PROTOCOL Performed By: #### L 501.080 ####[facility] [address] [place], [address] CBC W/Diff, Automatedon 03-2 Anisocytosis Ql (Bld) 1+ Normal [facility] Comment on above: Performed By: #### L 100.0100, L500.2500 ####[facility] [address] [place], [address] PLT EST A Normal ADEQ [facility] Comment on above: Performed By: #### L 100.0100, L500.2500 ####[facility] [address] [place], [address] POLYCHROMASIA 1+ Normal [facility] Comment on above: Performed By: #### L 100.0100, L500.2500 ####[facility] [address] [place], [address] Glucoseon 08-16-2024 Glucose [Mass/Vol] 91 mg/dL Normal 70-99 [facility] Comment on above: Performed By: #### L 501.0100 ####[facility] [address] [place], [address] Glucose [Mass/Vol] 109 mg/dL High 70-99 [facility] Comment on above: Performed By: #### L 501.0100 ####[facility] [address] [place], [address] Glucose measurement at bedsi deOrdered By: Nikolas Magaña on 08-16-2024 Glucose [Mass/Vol] 24 mg/dL Low 74-106 [facility] Glucose measurement at bedside 24 mg/dL Low 74-106 [facility] Platelet estimateOrdered By: Nikolas Magaña on 08-16-2024 Platelets LM Ql (Bld) A ADEQ [facility] Platelets LM Ql (Bld)Ordered By: Nikolas Magaña on 08-16-2024 [facility] Amylase (Body fld) [Catalyti c activity/Vol]Ordered By: Nikolas Magaña on 08-15-2024 Amylase body fluid 30 U/L . [facility] Amylase body fluidOrdered By : Nikolas Magaña on 08-15-2024 Amylase (Body fld) [Catalytic activity/Vol] 30 U/L . [facility] Anaerobic cultureOrdered By: Nikolas Magaña on 08-15-2024 Bacteria identified Anaer cx Nom (Unsp spec) No growth in 5 days. [facility] Appearance (Body fld)Ordered By: Nikolas Magaña on 08-15-2024 Body fluid appearance (nominal result) CLEAR [facility] Bacteria identified Anaer cx Nom (Unsp spec)Ordered By: Nikolas Magaña on 08-15-2024 Anaerobic culture No growth in 5 days. [facility] Bedside Glucoseon 08-15-2024 FINGERSTICK GLU 82 mg/dL Normal 74-106 [facility] Comment on above: Result Comment: LUIZA GEMENT OF PATIENT CARE PER NURSING PROTOCOL Performed By: #### L 501.080 ####[facility] [address] [facility] [address] FINGERSTICK GLU 92 mg/dL Normal 74-106 [facility] Comment on above: Result Comment: LUIZA GEMENT OF PATIENT CARE PER NURSING PROTOCOL Performed By: #### L 501.080 ####[facility] [address] [place], [address] FINGERSTICK GLU 90 mg/dL Normal 74-106 [facility] Comment on above: Result Comment: LUIZA GEMENT OF PATIENT CARE PER NURSING PROTOCOL Performed By: #### L 501.080 ####[facility] [address] [place], [address] FINGERSTICK GLU 70 mg/dL Low 74-106 [facility] Comment on above: Result Comment: LUIZA GEMENT OF PATIENT CARE PER NURSING PROTOCOL Performed By: #### L 501.080 ####[facility] [address] [place], [address] FINGERSTICK GLU 104 mg/dL Normal 74-106 [facility] Comment on above: Result Comment: LUIZA GEMENT OF PATIENT CARE PER NURSING PROTOCOL Performed By: #### L 501.080 ####[facility] [address] [place], [address] Body Fluid Cell Count+Diffon 08-15-2024 Lymphocytes (Bld) [#/Vol] 32 10*3/uL Normal [facility] Comment on above: Order Comment: The r eference interval(s) and other method performancespecifications are unavailable for this body fluid.Comparison of the result with concentration in the blood,serum, or plasma is recommended. Performed By: #### L 350.1000, L504.0250, L503.0300, L200.0200, L503.0100, M100.2900, M100.2000, M100.4001 ####[facility] [address] [place], [address] MESOTHELIAL 4 Normal [facility] Comment on above: Order Comment: The r eference interval(s) and other method performancespecifications are unavailable for this body fluid.Comparison of the result with concentration in the blood,serum, or plasma is recommended. Performed By: #### L 350.1000, L504.0250, L503.0300, L200.0200, L503.0100, M100.2900, M100.2000, M100.4001 ####[facility] [address] [place], [address] MONO/BF 60 Normal [facility] Comment on above: Order Comment: The r eference interval(s) and other method performancespecifications are unavailable for this body fluid.Comparison of the result with concentration in the blood,serum, or plasma is recommended. Performed By: #### L 350.1000, L504.0250, L503.0300, L200.0200, L503.0100, M100.2900, M100.2000, M100.4001 ####[facility] [address] [place], [address] PMN 4 Normal [facility] Comment on above: Order Comment: The r eference interval(s) and other method performancespecifications are unavailable for this body fluid.Comparison of the result with concentration in the blood,serum, or plasma is recommended. Performed By: #### L 350.1000, L504.0250, L503.0300, L200.0200, L503.0100, M100.2900, M100.2000, M100.4001 ####[facility] [address] [place], [place], [id number] Body fluid appearance (nomin al result)Ordered By: Nikolas Magaña on 08-15-2024 Appearance (Body fld) CLEAR [facility] Body fluid color determinati onOrdered By: Nikolas Magaña on 08-15-2024 Color (Body fld) LT YEL [facility] Body fluid cultureOrdered By : Nikolas Magaña on 08-15-2024 Body fluid culture No growth aerobically. [facility] Body fluid lactate dehydroge nase measurement (enzymatic activity/volume) by pyruvateOrdered By: Nikolas Magaña on 08-15-2024 LDH Pyruvate to lactate reaction (Body fld) [Catalytic activity/Vol] 51 Units/L Not Establ. [facility] Body fluid leukocytes count (number/volume)Ordered By: Nikolas Magaña on 08-15-2024 WBC (Body fld) [#/Vol] 0.023 10*3/uL [facility] Body fluid lymphocytes/100 l eukocytesOrdered By: Nikolas Magaña on 08-15-2024 Lymphocytes/100 WBC (Body fld) 32 % [facility] Body fluid mesothelial cell percentageOrdered By: Nikolas Magaña on 08-15-2024 Mesothelial cells/100 WBC (Body fld) 4 % [facility] Body fluid mononuclear cell countOrdered By: Nikolas Magaña on 08-15-2024 Body fluid mononuclear cell count 0.021 10^3/uL [facility] Body fluid mononuclear cell percentageOrdered By: Nikolas Magaña on 08-15-2024 Mononuclear cells/100 WBC (Body fld) 91.3 % [facility] Body fluid pHOrdered By: Myke Magaña on 08-15-2024 pH (Body fld) 7.3 [pH] Not Estab. [facility] Body fluid polymorphonuclear leukocyte countOrdered By: Nikolas Magaña on 08-15-2024 Body fluid polymorphonuclear leukocyte count 0.002 10^3/uL [facility] Body fluid protein measureme nt (mass/volume)Ordered By: Nikolas Magaña on 08-15-2024 Protein (Body fld) [Mass/Vol] 1.9 g/dL Not Establ. [facility] Body fluid segmented neutrop hils count (number/volume)Ordered By: Nikolas Magaña on 08-15-2024 Segmented neutrophils (Body fld) [#/Vol] 4 % [facility] Body fluid segmented neutrophils count (number/volume) 4 % [facility] Body fluid total cell countO rdered By: Nikolas Magaña on 08-15-2024 Cells Counted Total (Body fld) [#] 0.024 10^3/ul High 0.000-0.00 0 [facility] CBC W/Diff, Automatedon 07-28 Anisocytosis Ql (Bld) 1+ Normal [facility] Comment on above: Performed By: #### L 500.4100, L501.9520, L503.7505, L100.0100 ####[facility] [address] [place], [place], [id number] Calculated very low density lipoprotein (VLDL) cholesterol measurementOrdered By: Nikolas Magaña on 08-15-2024 Calculated very low density lipoprotein (VLDL) cholesterol measurement 14 mg/dL 5-40 [facility] Calculated very low density lipoprotein (VLDL) cholesterol measurement 14 mg/dL - [facility] Cells Counted Total (Body fl d) [#]Ordered By: Nikolas Magaña on 08-15-2024 Body fluid total cell count 0.024 10^3/ul High 0.000-0.00 0 [facility] Chest Insp/Exp 2 Viewon 2 0-2024 Chest Insp/Exp 2 View Normal [facility] Cholesterol [Mass/Vol]Ordere d By: Nikolas Magaña on 08-15-2024 Serum or plasma cholesterol measurement (mass/volume) 62 mg/dL <201 [facility] Cholesterol in HDL [Mass/Vol ]Ordered By: Nikolas Magaña on 08-15-2024 Serum or plasma cholesterol in HDL measurement (mass/volume) 25 mg/dL Low >40 [facility] Color (Body fld)Ordered By: Nikolas Magaña on 08-15-2024 Body fluid color determination LT YEL [facility] Consultation - Nephrologyon 08-15-2024 Consultation - Nephrology Normal [facility] Cytology report Cyto stain D oc (Body fld)Ordered By: Nikolas Magaña on 08-15-2024 Cytology report of Body fluid Cyto stain SEE PATHOLOGY REPORT [facility] Cytology report of Body flui d Cyto stainOrdered By: Nikolas Magaña on 08-15-2024 Cytology report Cyto stain Doc (Body fld) SEE PATHOLOGY REPORT [facility] Cytology, Body Fluid / CSFon 08-15-2024 CYTOLOGY,BF/CSF SEE PATHOLOGY REPORT Normal [facility] Comment on above: Result Comment: Spec imen submitted to Anatomical Pathology Department fortesting. Performed By: #### L 350.1000, L504.0250, L503.0300, L200.0200, L503.0100, M100.2900, M100.2000, M100.4001 ####[facility] [address] [place], [address] Echocardiogram study reportO rdered By: Tevin Nicholas on 08-15-2024 Study report [facility] Work Phone: Glucose, Body Fluidon 2024 GLUC, BODY FLD 111 mg/dL Normal Not Establ. [facility] Comment on above: Performed By: #### L 350.1000, L504.0250, L503.0300, L200.0200, L503.0100, M100.2900, M100.2000, M100.4001 ####[facility] [address] [place], [address] Glucose, body fluidOrdered B y: Nikolas Magaña on 08-15-2024 Glucose, body fluid 111 mg/dL Not Establ. [facility] Gram Stainon 08-15-2024 GS Centrifuged Specimen ? Culture performed on centrifuged specimen Gram Stain Rare White Blood Cells No organisms seen Normal [facility] Comment on above: Performed By: #### L 350.1000, L504.0250, L503.0300, L200.0200, L503.0100, M100.2900, M100.1999, M1.4001 ####[facility] [address] [place], [address] Gram stainOrdered By: Robb Magaña on 08-15-2024 Microscopic observation Gram stain Nom (Unsp spec) [facility] L503.7505on 08-15-2024 Natriuretic peptide B (Bld) [Mass/Vol] 62833 pg/mL High <=900 [facility] Comment on above: Result Comment: Hear t Failure Unlikely: < 300 pg/mLHeart Failure Likely< 50 Years: > 450 pg/mL50-75 Years: > 900 pg/mL>75 Years: > 1800 pg/mL Performed By: #### L 500.4100, L501.9520, L503.7505, L100.0100 ####[facility] [address] [place], [address] LDH Pyruvate to lactate reac tion (Body fld) [Catalytic activity/Vol]Ordered By: Nikolas Magaña on 08-15-2024 Body fluid lactate dehydrogenase measurement (enzymatic activity/volume) by pyruvate 51 Units/L Not Establ. [facility] LDH,Body Fluidon 08-15-2024 LDH,BF 51 Units/L Normal Not Establ. [facility] Comment on above: Performed By: #### L 350.1000, L504.0250, L503.0300, L200.0200, L503.0100, M100.2900, M100.2000, M100.4001 ####[facility] [address] [place], [address] LDL calc ser/plasOrdered By: Nikolas Magaña on 08-15-2024 Cholesterol in LDL [Mass/Vol] 23 mg/dL [facility] LDL calc ser/plas 23 mg/dL [facility] Lipid Profileon 08-15-2024 CHOL:HDL 2.48 Normal [facility] Comment on above: Performed By: #### L 500.4100, L501.9520, L503.7505, L100.0100 ####[facility] [address] [place], [address] Cholesterol [Mass/Vol] 62 mg/dL Normal <=200 [facility] Comment on above: Result Comment: Chol esterol level, Desirable <200 mg/dLBorderline high cholesterol 200-239 mg/dLHigh cholesterol >=240 mg/dLRecommendations of the NCEP Adult Treatment Panel for thefollowing risk-cutoff thresholds for the [place] Americanpulation. Performed By: #### L 500.4100, L501.9520, L503.7505, L100.0100 ####[facility] [address] [place], [address] Cholesterol in HDL [Mass/Vol] 25 mg/dL Low [facility] Comment on above: Result Comment: Lucila onal Cholesterol Education Program (NCEP) guidelines:<40 mg/dL: Low HDL-cholesterol (major risk factor for CHD)>= 60 mg/dL: High HDL-cholesterol (negative risk factor forCHD)HDL-cholesterol is affected by a number of factors, e.g.smoking, exercise, hormones, sex and age. Performed By: #### L 500.4100, L501.9520, L503.7505, L100.0100 ####[facility] [address] [place], [address] Cholesterol in LDL [Mass/Vol] 23 mg/dL Normal [facility] Comment on above: Result Comment: Bord pcayvo=006-247 mg/dL Higher Kyre=057 mg/dL or greater Performed By: #### L 500.4100, L501.9520, L503.7505, L100.0100 ####[facility] [address] [place], [address] Cholesterol in VLDL [Mass/Vol] 14 mg/dL Normal 5-40 [facility] Comment on above: Performed By: #### L 500.4100, L501.9520, L503.7505, L100.0100 ####[facility] [address] [place], [address] Triglyceride [Mass/Vol] 71 mg/dL Normal [facility] Comment on above: Result Comment: The drugs N-Acetylcysteine and Metamizole may falselydepress this assay.Normal range: <150 mg/dLBorderline High: 150-199 mg/dLHigh: 200-499 mg/dLVery High: >500 mg/dL Performed By: #### L 500.4100, L501.9520, L503.7505, L100.0100 ####[facility] [address] [place], [address] Lymphocytes/100 WBC (Body fl d)Ordered By: Nikolas Magaña on 08-15-2024 Body fluid lymphocytes/100 leukocytes 32 % [facility] Modified Barium Swallow Stud yon 08-15-2024 Modified Barium Swallow Study Normal [facility] Monocyte detectionOrdered By : Nikolas Magaña on 08-15-2024 Monocytes/100 WBC (Bld) 60 % [facility] Monocyte detection 60 % [facility] Mononuclear cells/100 WBC (B richie fld)Ordered By: Nikolas aMgaña on 08-15-2024 Body fluid mononuclear cell percentage 91.3 % [facility] No Panel InformationOrdered By: Nikolas Magaña on 08-15-2024 6 /mm3 [facility] SEE COMMENT [facility] [address] pg/mL High <900 [facility] Operative Reporton Operative Report Normal [facility] Pathologist interpretation ( Body fld) [Interp]Ordered By: Nikolas Magaña on 08-15-2024 Pathologist interpretation of Body fluid tests May follow [facility] Pathologist interpretation o f Body fluid testsOrdered By: Nikolas Magaña on 08-15-2024 Pathologist interpretation (Body fld) [Interp] May follow [facility] Polymorphonuclear (PMN) leuk ocyte countOrdered By: Nikolas Magaña on 08-15-2024 Polymorphonuclear (PMN) leukocyte count 8.7 % [facility] Protein (Body fld) [Mass/Vol ]Ordered By: Nikolas Magaña on 08-15-2024 Body fluid protein measurement (mass/volume) 1.9 g/dL Not Establ. [facility] Protein, Body Fluidon 2024 Protein [Mass/Vol] 1.9 g/dL Normal Not Establ. [facility] Comment on above: Performed By: #### L 350.1000, L504.0250, L503.0300, L200.0200, L503.0100, M100.2900, M100.2000, M100.4001 ####[facility] [address] [place], [place], [id number] Screening total cholesterol/ high density lipoprotein (HDL) cholesterol ratioOrdered By: Nikolas Magaña on 08-15-2024 Screening total cholesterol/high density lipoprotein (HDL) cholesterol ratio 2.48 [facility] Serum or plasma cholesterol in HDL measurement (mass/volume)Ordered By: Nikolas Magaña on 08-15-2024 Cholesterol in HDL [Mass/Vol] 25 mg/dL Low >40 [facility] Serum or plasma cholesterol measurement (mass/volume)Ordered By: Nikolas Magaña on 08-15-2024 Cholesterol [Mass/Vol] 62 mg/dL <201 [facility] Special Stain Group IIon Special Stain Group II Normal [facility] Comment on above: Performed By: #### P SSII ####[facility] [address] [place], [address] Specimen source Nom (Body fl d)Ordered By: Nikolas Magaña on 08-15-2024 Specimen source identification of body fluid THORACENTESIS [facility] Specimen source identificati on of body fluidOrdered By: Nikolas Magaña on 08-15-2024 Specimen source Nom (Body fld) THORACENTESIS [facility] TSH DL <= 0.005 mIU/L QnOrde red By: Nikolas Magaña on 08-15-2024 TSH Qn 10.600 uIU/mL High 0.300-4.20 0 [facility] Serum or plasma thyroid stimulating hormone (TSH) measurement by high sensitivity met 10.600 uIU/mL High 0.300-4.20 0 [facility] Thyroid Stim Hormone (TSH)on 08-15-2024 TSH 10.600 uIU/mL High 0.300-4.20 0 [facility] Comment on above: Performed By: #### L 500.4100, L501.9520, L503.7505, L100.0100 ####[facility] [address] [place], [place], [address] Triglycerides measurementOrd ered By: Nikolas Magaña on 08-15-2024 Triglycerides measurement 71 mg/dL <199 [facility] WBC (Body fld) [#/Vol]Ordere d By: Nikolas Magaña on 08-15-2024 Body fluid leukocytes count (number/volume) 0.023 10^3/uL [facility] pH (Body fld)Ordered By: Myke Magaña on 08-15-2024 Body fluid pH 7.3 Not Estab. [facility] 12 Lead EKGon 08-14-2024 12 Lead EKG Normal [facility] ALP [Catalytic activity/Vol] Ordered By: Ciaran Rodrigez on 08-14-2024 Serum or plasma alkaline phosphatase measurement 71 U/L 35-104 [facility] ALT [Catalytic activity/Vol] Ordered By: Ciaran Rodrigez on 08-14-2024 Serum or plasma alanine aminotransferase (ALT) measurement 9 U/L <35 [facility] Absolute neutrophil countOrd ered By: Ciaran Rodrigez on 08-14-2024 Absolute neutrophil count 7.1 X10^3/uL 2.0-7.7 [facility] Activated partial thrombopla stin time (aPTT) in platelet poor plasma by coagulation aOrdered By: Ciaran Rodrigez on 08-14-2024 aPTT Coag (PPP) [Time] 33.6 s 24.1-36.2 [facility] Albumin [Mass/Vol]Ordered By : Ciaran Rodrigez on 08-14-2024 Serum or plasma albumin measurement (mass/volume) 2.0 g/dL Low 3.4-4.8 [facility] Albumin/Globulin [Mass ratio ]Ordered By: Ciaran Rodrigez on 08-14-2024 Serum or plasma albumin/globulin mass ratio 0.6 RATIO Low 0.9-2.4 [facility] Anion gap [Moles/Vol]Ordered By: Ciaran Rodrigez on 08-14-2024 Anion gap in Serum or Plasma 9 5-15 [facility] Anion gap [Moles/Vol]Ordered By: Millie Massey on 08-14-2024 Anion gap in Serum or Plasma 7 5-15 [facility] Anion gap in Serum or Plasma Ordered By: Millie Massey on 08-14-2024 Anion gap [Moles/Vol] 7 mmol/L 5-15 [facility] Arterial patency Wrist arter y --pre arterial punctureOrdered By: Ciaran Walsh on 08-14-2024 Assessment of wrist artery patency prior to arterial puncture Positive [facility] Assessment of wrist artery p atency prior to arterial punctureOrdered By: Ciaran Rodrigez on 08-14-2024 Arterial patency Wrist artery --pre arterial puncture Positive [facility] BUN/creatinine ratioOrdered By: Ciaran Rodrigez on 08-14-2024 BUN/creatinine ratio 29.1 RATIO High - [facility] BUN/creatinine ratioOrdered By: Millie Massey on 08-14-2024 Urea nitrogen/Creatinine [Mass ratio] 28.9 mg/mg High - [facility] BUN/creatinine ratio 28.9 RATIO High - [facility] Base excess Calc (BldV) [Mol es/Vol]Ordered By: Ciaran Rodrigez on 08-14-2024 Blood base excess determination -3 mmol/L Low -2-2 [facility] Basic Metabolic Profile (BMP )on 08-14-2024 BUN/CRE 28.9 RATIO High 10-20 [facility] Comment on above: Order Comment: 206 Performed By: #### L 500.4100, L100.4500, L506.1001, L500.2500, L501.9520, L100.0500, L501.5200, L503.0106 ####[facility] [address] [place], [address] Calcium [Mass/Vol] 7.8 mg/dL Normal 7.6-11.0 [facility] Comment on above: Order Comment: 206 Performed By: #### L 500.4100, L100.4500, L506.1001, L500.2500, L501.9520, L100.0500, L501.5200, L503.0106 ####[facility] [address] [place], [address] Chloride [Moles/Vol] 105 mmol/L Normal 98-108 [facility] Comment on above: Order Comment: 206 Performed By: #### L 500.4100, L100.4500, L506.1001, L500.2500, L501.9520, L100.0500, L501.5200, L503.0106 ####[facility] [address] [place], [address] CO2 [Moles/Vol] 19.9 mmol/L Low 21.0-32.0 [facility] Comment on above: Order Comment: 206 Performed By: #### L 500.4100, L100.4500, L506.1001, L500.2500, L501.9520, L100.0500, L501.5200, L503.0106 ####[facility] [address] [place], [address] Creatinine [Mass/Vol] 1.34 mg/dL High 0.70-1.20 [facility] Comment on above: Order Comment: 206 Performed By: #### L 500.4100, L100.4500, L506.1001, L500.2500, L501.9520, L100.0500, L501.5200, L503.0106 ####[facility] [address] [place], [address] GAP 7 Normal 5-15 [facility] Comment on above: Order Comment: 206 Performed By: #### L 500.4100, L100.4500, L506.1001, L500.2500, L501.9520, L100.0500, L501.5200, L503.0106 ####[facility] [address] [place], [place], [phone]) GFR/1.73 sq M.predicted among non-blacks MDRD (S/P/Bld) [Vol rate/Area] 45 mL/min/{1.73_m2} Low >60 [facility] Comment on above: Order Comment: 206 Result Comment: mL/m in/1.73m2 CKD-EPI Creatinine Equation (2020) Performed By: #### L 500.4100, L100.4500, L506.1001, L500.2500, L501.9520, L100.0500, L501.5200, L503.0106 ####[facility] [address] [place], [address] Glucose [Mass/Vol] 84 mg/dL Normal 70-99 [facility] Comment on above: Order Comment: 206 Performed By: #### L 500.4100, L100.4500, L506.1001, L500.2500, L501.9520, L100.0500, L501.5200, L503.0106 ####[facility] [address] [place], [address](077) Potassium [Moles/Vol] 5.3 mmol/L High 3.3-5.1 [facility] Comment on above: Order Comment: 206 Result Comment: Hemo lysis present, Results??could be affected.?? Performed By: #### L 500.4100, L100.4500, L506.1001, L500.2500, L501.9520, L100.0500, L501.5200, L503.0106 ####[facility] [address] [place], [address] Sodium [Moles/Vol] 132 mmol/L Low 133-145 [facility] Comment on above: Order Comment: 206 Performed By: #### L 500.4100, L100.4500, L506.1001, L500.2500, L501.9520, L100.0500, L501.5200, L503.0106 ####[facility] [address] [place], [address] Urea nitrogen [Mass/Vol] 39 mg/dL High 4-19 [facility] Comment on above: Order Comment: 206 Performed By: #### L 500.4100, L100.4500, L506.1001, L500.2500, L501.9520, L100.0500, L501.5200, L503.0106 ####[facility] [address] [place], [address] BUN Normal 4-19 [facility] Comment on above: Result Comment: Canc elled via OM: Order cancelled - Patient discharged Performed By: #### L 500.2500, L100.0100 ####[facility] [address] [place], [address] BUN/CRE Normal 10-20 [facility] Comment on above: Result Comment: Canc elled via OM: Order cancelled - Patient discharged Performed By: #### L 500.2500, L100.0100 ####[facility] [address] [place], [address] Calcium Normal 7.6-11.0 [facility] Comment on above: Result Comment: Canc elled via OM: Order cancelled - Patient discharged Performed By: #### L 500.2500, L100.0100 ####[facility] [address] [place], [address] CL Normal 98-108 [facility] Comment on above: Result Comment: Canc elled via OM: Order cancelled - Patient discharged Performed By: #### L 500.2500, L100.0100 ####[facility] [address] [place], [address] CO2 Normal 21.0-32.0 [facility] Comment on above: Result Comment: Canc elled via OM: Order cancelled - Patient discharged Performed By: #### L 500.2500, L100.0100 ####[facility] [address] [place], [address] CREAT,SERUM Normal 0.70-1.20 [facility] Comment on above: Result Comment: Canc elled via OM: Order cancelled - Patient discharged Performed By: #### L 500.2500, L100.0100 ####[facility] [address] [place], [address] eGFR Normal >60 [facility] Comment on above: Result Comment: Canc elled via OM: Order cancelled - Patient discharged Performed By: #### L 500.2500, L100.0100 ####[facility] [address] [place], [address] GAP Normal 5-15 [facility] Comment on above: Result Comment: Canc elled via OM: Order cancelled - Patient discharged Performed By: #### L 500.2500, L100.0100 ####[facility] [address] [place], [address] GLU Normal 70-99 [facility] Comment on above: Result Comment: Canc elled via OM: Order cancelled - Patient discharged Performed By: #### L 500.2500, L100.0100 ####[facility] [address] [place], [address] Potassium Normal 3.3-5.1 [facility] Comment on above: Result Comment: Canc elled via OM: Order cancelled - Patient discharged Performed By: #### L 500.2500, L100.0100 ####[facility] [address] [place], [address] Basic Metabolic Profile (BMP) Normal 133-145 [facility] Comment on above: Result Comment: Canc elled via OM: Order cancelled - Patient discharged Performed By: #### L 500.2500, L100.0100 ####[facility] [address] [place], [address] Basophil percentageOrdered B y: Ciaran Rodrigez on 08-14-2024 Basophil percentage 0.6 % 0-1 [facility] Bedside Glucoseon 08-14-2024 FINGERSTICK GLU 137 mg/dL High 74-106 [facility] Comment on above: Result Comment: LUIZA DIAZ OF PATIENT CARE PER NURSING PROTOCOL Performed By: #### L 501.080 ####[facility] [address] [place], [address] Bilirubin Test strip Ql (U)O rdered By: Ciaran Rodrigez on 08-14-2024 Bilirubin Ql (U) Negative Negative [facility] Bilirubin, totalOrdered By: Ciaran Rodrigez on 08-14-2024 Bilirubin [Mass/Vol] 0.18 mg/dL 0.00-1.30 [facility] Bilirubin, total 0.18 mg/dL 0.00-1.30 [facility] Blood Gases by CPSon 025 LINDA TEST Positive Normal [facility] Comment on above: Performed By: #### L 9000.0800 ####[facility] [address] [place], [address] Base excess Calc (Bld) [Moles/Vol] -3 mmol/L Low -2 to +2 [facility] Comment on above: Performed By: #### L 9000.0800 ####[facility] [address] [place], [address] Blood Gas Type ART Normal [facility] Comment on above: Performed By: #### L 0.0800 ####[facility] [address] [place], [address] CO2 [Moles/Vol] 23 mmol/L Normal [facility] Comment on above: Performed By: #### L 9000.0800 ####[facility] [address] [place], [address] FI02 44.0 Normal [facility] Comment on above: Performed By: #### L 9000.0800 ####[facility] [address] [place], [address] HCO3 (Bld) [Moles/Vol] 22.0 mmol/L Normal 22-26 [facility] Comment on above: Performed By: #### L 9000.0800 ####[facility] [address] [place], [address] Mode Not entered Normal [facility] Comment on above: Performed By: #### L 9000.0800 ####[facility] [address] [place], [address] O2 Delivery Dev Cannula Normal [facility] Comment on above: Performed By: #### L 8999.0800 ####[facility] [address] [place], [address] pCO2 39.1 mmHg Normal 35-45 [facility] Comment on above: Performed By: #### L 0.0800 ####[facility] [address] [place], [address] pH (Bld) 7.36 [pH] Normal 7.35-7.45 [facility] Comment on above: Performed By: #### L 9000.0800 ####[facility] [address] [place], [address] PO2 105 mmHG High 75-100 [facility] Comment on above: Performed By: #### L 9000.0800 ####[facility] [address] [place], [address] SITE R Radial Normal [facility] Comment on above: Performed By: #### L 9000.0800 ####[facility] [address] [place], [address] SO2 98 Normal 95-99 [facility] Comment on above: Performed By: #### L 9000.0800 ####[facility] [address] [place], [address] Blood base excess determinat ionOrdered By: Ciaran Rodrigez on 08-14-2024 Base excess Calc (BldV) [Moles/Vol] -3 mmol/L Low -2-2 [facility] Blood bicarbonate measuremen tOrdered By: Ciaran Rodrigez on 08-14-2024 HCO3 (Bld) [Moles/Vol] 22.0 mmol/L [facility] Blood bicarbonate measurement 22.0 mmol/L [facility] Blood cultureOrdered By: Adelfo Rodrigez on 08-14-2024 Bacteria identified Cx Nom (Bld) No growth in 5 days. [facility] Blood culture No growth in 5 days. [facility] Bacteria identified Cx Nom (Bld) No growth in 5 days. [facility] Blood culture No growth in 5 days. [facility] Blood manual differential co mment interpretation (narrative result)Ordered By: Millie Massey on 03-19-2025 Manual differential comment Horace (Bld) [Interp] COMMENT [facility] Blood polychromasia detectio n by light microscopyOrdered By: Ciaran Walsh on 08-14-2024 Blood polychromasia detection by light microscopy RARE [facility] CBC W/Diff, Automatedon 07-27 Anisocytosis Ql (Bld) RARE Normal [facility] Comment on above: Performed By: #### L 500.4050, L100.0100 ####[facility] [address] [place], [address] POLYCHROMASIA RARE Normal [facility] Comment on above: Performed By: #### L 500.4050, L100.0100 ####[facility] [address] [place], [address] Absolute Neut Normal 2.0-7.7 [facility] Comment on above: Result Comment: Canc elled via OM: Order cancelled - Patient discharged Performed By: #### L 500.2500, L100.0100 ####[facility] [address] [place], [address] HCT Normal 37-47 [facility] Comment on above: Result Comment: Canc elled via OM: Order cancelled - Patient discharged Performed By: #### L 500.2500, L100.0100 ####[facility] [address] [place], [address] HGB Normal 12.0-15.0 [facility] Comment on above: Result Comment: Canc elled via OM: Order cancelled - Patient discharged Performed By: #### L 500.2500, L100.0100 ####[facility] [address] [place], [address] MCH Normal 27.0-32.0 [facility] Comment on above: Result Comment: Canc elled via OM: Order cancelled - Patient discharged Performed By: #### L 500.2500, L100.0100 ####[facility] [address] [place], [address] MCHC Normal 32-36 [facility] Comment on above: Result Comment: Canc elled via OM: Order cancelled - Patient discharged Performed By: #### L 500.2500, L100.0100 ####[facility] [address] [place], [address] MCV Normal 81-99 [facility] Comment on above: Result Comment: Canc elled via OM: Order cancelled - Patient discharged Performed By: #### L 500.2500, L100.0100 ####[facility] [address] [place], [address] NEUT% Normal 47-70 [facility] Comment on above: Result Comment: Canc elled via OM: Order cancelled - Patient discharged Performed By: #### L 500.2500, L100.0100 ####[facility] [address] [place], [address] PLT Normal 150-450 [facility] Comment on above: Result Comment: Canc elled via OM: Order cancelled - Patient discharged Performed By: #### L 500.2500, L100.0100 ####[facility] [address] [place], [address] RBC Normal 4.2-5.4 [facility] Comment on above: Result Comment: Canc elled via OM: Order cancelled - Patient discharged Performed By: #### L 500.2500, L100.0100 ####[facility] [address] [place], [address] RDW CV Normal 11.6-14.6 [facility] Comment on above: Result Comment: Canc elled via OM: Order cancelled - Patient discharged Performed By: #### L 500.2500, L100.0100 ####[facility] [address] [place], [address] RDW SD Normal 35.1-43.9 [facility] Comment on above: Result Comment: Canc elled via OM: Order cancelled - Patient discharged Performed By: #### L 500.2500, L100.0100 ####[facility] [address] [place], [address] WBC Normal 4.4-11.0 [facility] Comment on above: Result Comment: Canc elled via OM: Order cancelled - Patient discharged Performed By: #### L 500.2500, L100.0100 ####[facility] [address] [place], [address] CBC-Complete Blood Cnt No Di ffon 08-14-2024 Erythrocyte distribution width (RBC) [Ratio] 21.0 % High 11.6-14.6 [facility] Comment on above: Order Comment: 206 Performed By: #### L 500.4100, L100.4500, L506.1001, L500.2500, L501.9520, L100.0500, L501.5200, L503.0106 ####[facility] [address] [place], [address] Hematocrit (Bld) [Volume fraction] 30.9 % Low 37-47 [facility] Comment on above: Order Comment: 206 Performed By: #### L 500.4100, L100.4500, L506.1001, L500.2500, L501.9520, L100.0500, L501.5200, L503.0106 ####[facility] [address] [place], [address] Hemoglobin (Bld) [Mass/Vol] 9.2 g/dL Low 12.0-15.0 [facility] Comment on above: Order Comment: 206 Performed By: #### L 500.4100, L100.4500, L506.1001, L500.2500, L501.9520, L100.0500, L501.5200, L503.0106 ####[facility] [address] [place], [address] MCH (RBC) [Entitic mass] 27.6 pg Normal 27.0-32.0 [facility] Comment on above: Order Comment: 206 Performed By: #### L 500.4100, L100.4500, L506.1001, L500.2500, L501.9520, L100.0500, L501.5200, L503.0106 ####[facility] [address] [place], [address] MCHC (RBC) [Mass/Vol] 29.8 g/dL Low 32-36 [facility] Comment on above: Order Comment: 206 Performed By: #### L 500.4100, L100.4500, L506.1001, L500.2500, L501.9520, L100.0500, L501.5200, L503.0106 ####[facility] [address] [place], [address] MCV (RBC) [Entitic vol] 92.8 fL Normal 81-99 [facility] Comment on above: Order Comment: 206 Performed By: #### L 500.4100, L100.4500, L506.1001, L500.2500, L501.9520, L100.0500, L501.5200, L503.0106 ####[facility] [address] [place], [address] Platelet mean volume (Bld) [Entitic vol] 10.8 fL Normal 6.2-12.0 [facility] Comment on above: Order Comment: 206 Performed By: #### L 500.4100, L100.4500, L506.1001, L500.2500, L501.9520, L100.0500, L501.5200, L503.0106 ####[facility] [address] [place], [address] Platelets (Bld) [#/Vol] 137 10*3/uL Low 150-450 [facility] Comment on above: Order Comment: 206 Performed By: #### L 500.4100, L100.4500, L506.1001, L500.2500, L501.9520, L100.0500, L501.5200, L503.0106 ####[facility] [address] [place], [address] RBC (Bld) [#/Vol] 3.33 10*6/uL Low 4.2-5.4 [facility] Comment on above: Order Comment: 206 Performed By: #### L 500.4100, L100.4500, L506.1001, L500.2500, L501.9520, L100.0500, L501.5200, L503.0106 ####[facility] [address] [place], [address] RDW SD 69.6 fl High 35.1-43.9 [facility] Comment on above: Order Comment: 206 Performed By: #### L 500.4100, L100.4500, L506.1001, L500.2500, L501.9520, L100.0500, L501.5200, L503.0106 ####[facility] [address] [place], [address] WBC (Bld) [#/Vol] 4.1 10*3/uL Low 4.4-11.0 [facility] Comment on above: Order Comment: 206 Performed By: #### L 500.4100, L100.4500, L506.1001, L500.2500, L501.9520, L100.0500, L501.5200, L503.0106 ####[facility] [address] [place], [address] Calcium [Mass/Vol]Ordered By : Ciaran Rodrigez on 08-14-2024 Serum or plasma calcium measurement (mass/volume) 7.8 mg/dL 7.6-11.0 [facility] Calcium [Mass/Vol]Ordered By : Millie Massey on 08-14-2024 Serum or plasma calcium measurement (mass/volume) 7.8 mg/dL 7.6-11.0 [facility] Calcium oxalate crystals LM Ql (Urine sed)Ordered By: Ciaran Rodrigez on 08-14-2024 Calcium oxalate crystals detection in urine sediment by light microscopy 1+ /hpf [facility] Calcium oxalate crystals det ection in urine sediment by light microscopyOrdered By: Ciaran Rodrigez on 08-14-2024 Calcium oxalate crystals LM Ql (Urine sed) 1+ /hpf [facility] Calculated very low density lipoprotein (VLDL) cholesterol measurementOrdered By: Millie Massey on 08-14-2024 Calculated very low density lipoprotein (VLDL) cholesterol measurement 9 mg/dL [facility] Calculated very low density lipoprotein (VLDL) cholesterol measurement 9 mg/dL 40 [facility] Carbon dioxide, total [Moles /volume] in Central venous bloodOrdered By: Ciaran Rodrigez on 08-14-2024 Carbon dioxide, total [Moles/volume] in Central venous blood 19.2 mmol/L Low 21.0-32.0 [facility] Carbon dioxide, total [Moles /volume] in Central venous bloodOrdered By: Millie Massey on 08-14-2024 CO2 [Moles/Vol] 19.9 mmol/L Low 21.0-32.0 [facility] Carbon dioxide, total [Moles/volume] in Central venous blood 19.9 mmol/L Low 21.0-32.0 [facility] Chest 1 View (Portable)on Chest 1 View (Portable) Normal [facility] Chloride assayOrdered By: Dakota Rodrigez on 08-14-2024 Chloride assay 104 mmol/L 98-108 [facility] Chloride assayOrdered By: Carter Massey on 08-14-2024 Chloride [Moles/Vol] 105 mmol/L 98-108 [facility] Chloride assay 105 mmol/L 98-108 [facility] Cholesterol [Mass/Vol]Ordere d By: Millie Massey on 08-14-2024 Serum or plasma cholesterol measurement (mass/volume) 72 mg/dL <201 [facility] Cholesterol in HDL [Mass/Vol ]Ordered By: Millie Massey on 08-14-2024 Serum or plasma cholesterol in HDL measurement (mass/volume) 27 mg/dL Low >40 [facility] Clarity (U)Ordered By: Ciaran Rodrigez on 08-14-2024 Urine clarity Sl. Cloudy Clear [facility] Cobalamin (Vitamin B12) [Mas s/Vol]Ordered By: Millie Massey on 08-14-2024 Vitamin B12 ser/plas 599 pg/mL 180-914 [facility] Color (U)Ordered By: Ciaran Singh on 08-14-2024 Urine color determination Yellow Yellow [facility] Comprehensive Metabolic Prof ilon 08-14-2024 Albumin [Mass/Vol] 2.0 g/dL Low 3.4-4.8 [facility] Comment on above: Performed By: #### L 500.4050, L100.0100 ####[facility] [address] [place], [address] Albumin/Globulin [Mass ratio] 0.6 {ratio} Low 0.9-2.4 [facility] Comment on above: Performed By: #### L 500.4050, L100.0100 ####[facility] [address] [place], [address] ALK PHOS 71 U/L Normal 35-104 [facility] Comment on above: Performed By: #### L 500.4050, L100.0100 ####[facility] [address] [place], [address] ALT [Catalytic activity/Vol] 9 U/L Normal <=34 [facility] Comment on above: Performed By: #### L 500.4050, L100.0100 ####[facility] [address] [place], [address] AST [Catalytic activity/Vol] 29 U/L Normal <=31 [facility] Comment on above: Result Comment: Hemo lysis present, Results??could be affected.?? Performed By: #### L 500.4050, L100.0100 ####[facility] [address] [place], [address] Bilirubin [Mass/Vol] 0.18 mg/dL Normal 0.00-1.30 [facility] Comment on above: Performed By: #### L 500.4050, L100.0100 ####[facility] [address] [place], [address] BUN/CRE 29.1 RATIO High 10-20 [facility] Comment on above: Performed By: #### L 500.4050, L100.0100 ####[facility] [address] [place], [address] Calcium [Mass/Vol] 7.8 mg/dL Normal 7.6-11.0 [facility] Comment on above: Performed By: #### L 500.4050, L100.0100 ####[facility] [address] [place], [address] Chloride [Moles/Vol] 104 mmol/L Normal 98-108 [facility] Comment on above: Performed By: #### L 500.4050, L100.0100 ####[facility] [address] [place], [address] CO2 [Moles/Vol] 19.2 mmol/L Low 21.0-32.0 [facility] Comment on above: Performed By: #### L 500.4050, L100.0100 ####[facility] [address] [place], [address] Creatinine [Mass/Vol] 1.34 mg/dL High 0.70-1.20 [facility] Comment on above: Performed By: #### L 500.4050, L100.0100 ####[facility] [address] [place], [address] ECRCL 38.48 ml/min Low 50-250 [facility] Comment on above: Performed By: #### L 500.4050, L100.0100 ####[facility] [address] [place], [address] GAP 9 Normal 5-15 [facility] Comment on above: Performed By: #### L 500.4050, L100.0100 ####[facility] [address] [place], [address] GFR/1.73 sq M.predicted among non-blacks MDRD (S/P/Bld) [Vol rate/Area] 45 mL/min/{1.73_m2} Low >60 [facility] Comment on above: Result Comment: mL/m in/1.73m2 CKD-EPI Creatinine Equation (2020) Performed By: #### L 500.4050, L100.0100 ####[facility] [address] [place], [address] Globulin (S) [Mass/Vol] 3.4 g/dL Normal 2.2-4.2 [facility] Comment on above: Performed By: #### L 500.4050, L100.0100 ####[facility] [address] [place], [address] Glucose [Mass/Vol] 85 mg/dL Normal 70-99 [facility] Comment on above: Performed By: #### L 500.4050, L100.0100 ####[facility] [address] [place], [address] Potassium [Moles/Vol] 5.4 mmol/L High 3.3-5.1 [facility] Comment on above: Result Comment: Hemo lysis present, Results??could be affected.?? Performed By: #### L 500.4050, L100.0100 ####[facility] [address] [place], [address] Sodium [Moles/Vol] 131 mmol/L Low 133-145 [facility] Comment on above: Performed By: #### L 500.4050, L100.0100 ####[facility] [address] [place], [address] T PROT 5.5 g/dL Low 5.9-8.4 [facility] Comment on above: Performed By: #### L 500.4050, L100.0100 ####[facility] [address] [place], [address] Urea nitrogen [Mass/Vol] 39 mg/dL High 4-19 [facility] Comment on above: Performed By: #### L 500.4050, L100.0100 ####[facility] [address] [place], [address] Creatinine [Mass/Vol]Ordered By: Ciaran Rodrigez on 08-14-2024 Serum creatinine measurement (mass/volume) 1.34 mg/dL High 0.70-1.20 [facility] Creatinine [Mass/Vol]Ordered By: Millie Massey on 08-14-2024 Serum creatinine measurement (mass/volume) 1.34 mg/dL High 0.70-1.20 [facility] Determination of fraction of inspired oxygenOrdered By: Ciaran Rodrigez on 08-14-2024 Determination of fraction of inspired oxygen 44.0 [facility] Dialysis Vein Map PRE-OP LEXIE ATon 08-14-2024 Dialysis Vein Map PRE-OP BILAT Normal [facility] Differential Commenton 08-14 SMEAR COMMENT COMMENT Normal [facility] Comment on above: Order Comment: 206 Result Comment: 1+ A NISO. Performed By: #### L 500.4100, L100.4500, L506.1001, L500.2500, L501.9520, L100.0500, L501.5200, L503.0106 ####[facility] [address] [place], [address] Echo Completeon 08-14-2024 Echo Complete Normal [facility] Emergency Department Summary on 08-14-2024 Emergency Department Summary Normal [facility] Eosinophil percentageOrdered By: Ciaran Rodrigez on 08-14-2024 Eosinophil percentage 1.9 % 0-5 [facility] Erythrocyte distribution wid th (RBC) [Entitic vol]Ordered By: Ciaran Walsh on 08-14-2024 Erythrocyte distribution width standard deviation 70.0 fl High 35.1-43.9 [facility] Erythrocyte distribution wid th (RBC) [Ratio]Ordered By: Ciaran Rodrigez on 08-14-2024 Erythrocyte distribution width ratio 21.0 % High 11.6-14.6 [facility] Erythrocyte distribution wid th (RBC) [Ratio]Ordered By: Millie Massey on 08-14-2024 Erythrocyte distribution width ratio 21.0 % High 11.6-14.6 [facility] Erythrocyte distribution wid th ratioOrdered By: Millieblanche Massey on 08-14-2024 Erythrocyte distribution width (RBC) [Ratio] 21.0 % High 11.6-14.6 [facility] Erythrocyte distribution wid th standard deviationOrdered By: Millieblanche Massey on 08-14-2024 Erythrocyte distribution width (RBC) [Ratio] 69.6 fl High 35.1-43.9 [facility] Erythrocyte distribution width standard deviation 69.6 fl High 35.1-43.9 [facility] Estimation of creatinine austen aranceOrdered By: Ciaran Rodrigez on 08-14-2024 Estimation of creatinine clearance 38.48 ml/min Low 50-250 [facility] GFR/1.73 sq M.predicted víctor g non-blacks MDRD (S/P/Bld) [Vol rate/Area]Ordered By: Ciaran Rodrigez on 08-14-2024 Glomerular filtration rate (GFR) estimation/1.73 sq m using serum, plasma, or whole b 45 Low >60 [facility] GFR/1.73 sq M.predicted víctor g non-blacks MDRD (S/P/Bld) [Vol rate/Area]Ordered By: Millie Massey on 08-14-2024 Glomerular filtration rate (GFR) estimation/1.73 sq m using serum, plasma, or whole b 45 Low >60 [facility] Glomerular filtration rate ( GFR) estimation/1.73 sq m using serum, plasma, or whole bOrdered By: Millie Massey on 08-14-2024 GFR/1.73 sq M.predicted among non-blacks MDRD (S/P/Bld) [Vol rate/Area] 45 mL/min/{1.73_m2} Low >60 [facility] Glucoseon 08-14-2024 Glucose [Mass/Vol] 79 mg/dL Normal - [facility] Comment on above: Performed By: #### L 501.0100 ####[facility] [address] [place], [address] Glucose [Mass/Vol]Ordered By : Ciaran Rodrigez on 08-14-2024 Serum glucose measurement (mass/volume) 85 mg/dL [facility] Glucose [Mass/Vol]Ordered By : Millie Massey on 08-14-2024 Serum glucose measurement (mass/volume) 84 mg/dL [facility] H AND P Exam - Hospitaliston 08-14-2024 H&P Exam - Hospitalist Normal [facility] Hematocrit Auto (Bld) [Volum e fraction]Ordered By: Ciaran Rodrigez on 08-14-2024 Automated blood hematocrit (percentage) 29.0 % Low 37-47 [facility] Hematocrit Auto (Bld) [Volum e fraction]Ordered By: Millie Massey on 08-14-2024 Hematocrit (Bld) [Volume fraction] 30.9 % Low 37-47 [facility] Automated blood hematocrit (percentage) 30.9 % Low 37-47 [facility] Hemoglobin measurementOrdere d By: Ciaran Rodrigez on 08-14-2024 Hemoglobin measurement 8.7 g/dL Low 12.0-15.0 [facility] Hemoglobin measurementOrdere d By: Millie Massey on 08-14-2024 Hemoglobin (Bld) [Mass/Vol] 9.2 g/dL Low 12.0-15.0 [facility] Hemoglobin measurement 9.2 g/dL Low 12.0-15.0 [facility] Immature granulocytes/100 WB C Auto (Bld)Ordered By: Ciaran Rodrigez on 08-14-2024 Automated immature granulocyte percentage 3.300 % High 0.0-0.9 [facility] Influenza virus A and B and SARS-CoV-2 (COVID-19) and Respiratory syncytial virus RNAOrdered By: Ciaran Rodrigez on 08-14-2024 SARS-CoV-2 (COVID-19) RNA MOISES+probe Ql (Unsp spec) [facility] International normalized rat io (INR) calculationOrdered By: Ciaran Rain on 08-14-2024 International normalized ratio (INR) calculation 1.1 [facility] Ketones Test strip Ql (U)Ord ered By: Ciaransam Rodrigez on 08-14-2024 Ketones Ql (U) Negative Negative [facility] L499.0042on 08-14-2024 Trop T High Sen 221 ng/L Invalid Interpretation Code <=14 [facility] Comment on above: Result Comment: Crit ical Result(s) Called at 1058: TO HORR by:KCLAPPER??Results read back by same. Performed By: #### L 499.0042 ####[facility] [address] [place], [address] L501.4021on 08-14-2024 Trop T High Sen 224 ng/L Invalid Interpretation Code <=14 [facility] Comment on above: Result Comment: Crit ical Result(s) Called at 0906: TO CDANTEL by:KCLAPPER??Results read back by same. Performed By: #### M 200.1000, L503.6005, L501.4021 ####[facility] [address] [place], [address] L503.0106on 08-14-2024 Cobalamin (Vitamin B12) [Mass/Vol] 599 pg/mL Normal 180-914 [facility] Comment on above: Order Comment: 206 Performed By: #### L 500.4100, L100.4500, L506.1001, L500.2500, L501.9520, L100.0500, L501.5200, L503.0106 ####[facility] [address] [place], [address] L506.1001on 08-14-2024 Vitamin D 25-OH 26.7 ng/mL Low 30-100 [facility] Comment on above: Order Comment: 206 Result Comment: Kelly min D StatusDeficiency: <20 ng/mL (50nmol/L)Insufficiency: 20-30 ng/mL (50-75 nmol/L)Sufficiency: 30-100 ng/mL (75-250 nmol/L)Toxicity: >100 ng/mL (>250 nmol/L) Performed By: #### L 500.4100, L100.4500, L506.1001, L500.2500, L501.9520, L100.0500, L501.5200, L503.0106 ####[facility] [address] [place], [address] LDHon 08-14-2024 LDH 239 U/L Normal 84-246 [facility] Comment on above: Order Comment: 1 Result Comment: Hemo lysis present, Results??could be affected.?? Performed By: #### L 504.2610, L001.0705 ####[facility] [address] [place], [address] LDL calc ser/plasOrdered By: Millie Massey on 08-14-2024 Cholesterol in LDL [Mass/Vol] 36 mg/dL [facility] LDL calc ser/plas 36 mg/dL [facility] Lactate dehydrogenase (LDH) measurementOrdered By: Nikolas Magaña on 08-14-2024 Lactate dehydrogenase (LDH) measurement 239 U/L 84-246 [facility] Lactic Acidon 08-14-2024 Lactate [Moles/Vol] 3.1 mmol/L Invalid Interpretation Code 0.0-2.0 [facility] Comment on above: Order Comment: Y Result Comment: Crit ical Result(s) Called at 0906: TO CDANTEL by:KCLAPPER??Results read back by same. Performed By: #### M 200.1000, L503.6005, L501.4021 ####[facility] [address] [place], [place], [id number] Lactic acid measurementOrder ed By: Ciaran Rodrigez on 08-14-2024 Lactic acid measurement 3.1 mmol/L High 0.0-2.0 [facility] Leukocyte esterase Test stri p Ql (U)Ordered By: Ciaran Rodrigez on 08-14-2024 Urine leukocyte esterase detection by dipstick 500 /ul High Negative [facility] Lipid Profileon 08-14-2024 CHOL:HDL 2.71 Normal [facility] Comment on above: Order Comment: 206 Performed By: #### L 500.4100, L100.4500, L506.1001, L500.2500, L501.9520, L100.0500, L501.5200, L503.0106 ####[facility] [address] [place], [address] Cholesterol [Mass/Vol] 72 mg/dL Normal <=200 [facility] Comment on above: Order Comment: 206 Result Comment: Chol esterol level, Desirable <200 mg/dLBorderline high cholesterol 200-239 mg/dLHigh cholesterol >=240 mg/dLRecommendations of the NCEP Adult Treatment Panel for thefollowing risk-cutoff thresholds for the [place] Americanpulation. Performed By: #### L 500.4100, L100.4500, L506.1001, L500.2500, L501.9520, L100.0500, L501.5200, L503.0106 ####[facility] [address] [place], [address] Cholesterol in HDL [Mass/Vol] 27 mg/dL Low [facility] Comment on above: Order Comment: 206 Result Comment: Lucila onal Cholesterol Education Program (NCEP) guidelines:<40 mg/dL: Low HDL-cholesterol (major risk factor for CHD)>= 60 mg/dL: High HDL-cholesterol (negative risk factor forCHD)HDL-cholesterol is affected by a number of factors, e.g.smoking, exercise, hormones, sex and age. Performed By: #### L 500.4100, L100.4500, L506.1001, L500.2500, L501.9520, L100.0500, L501.5200, L503.0106 ####[facility] [address] [place], [address] Cholesterol in LDL [Mass/Vol] 36 mg/dL Normal [facility] Comment on above: Order Comment: 206 Result Comment: Bord osfsop=217-952 mg/dL Higher Geir=411 mg/dL or greater Performed By: #### L 500.4100, L100.4500, L506.1001, L500.2500, L501.9520, L100.0500, L501.5200, L503.0106 ####[facility] [address] [place], [address] Cholesterol in VLDL [Mass/Vol] 9 mg/dL Normal 5-40 [facility] Comment on above: Order Comment: 206 Performed By: #### L 500.4100, L100.4500, L506.1001, L500.2500, L501.9520, L100.0500, L501.5200, L503.0106 ####[facility] [address] [place], [address] Triglyceride [Mass/Vol] 46 mg/dL Normal [facility] Comment on above: Order Comment: 206 Result Comment: The drugs N-Acetylcysteine and Metamizole may falselydepress this assay.Normal range: <150 mg/dLBorderline High: 150-199 mg/dLHigh: 200-499 mg/dLVery High: >500 mg/dL Performed By: #### L 500.4100, L100.4500, L506.1001, L500.2500, L501.9520, L100.0500, L501.5200, L503.0106 ####[facility] [address] [place], [address] Lymphocytes Auto (Unsp spec) [#/Vol]Ordered By: Ciaran Rodrigez on 08-14-2024 Absolute lymphocyte count 0.77 X10^3/uL Low 0.83-4.51 [facility] Lymphocytes/100 WBC Auto (Un sp spec)Ordered By: Ciaran Rodrigez on 08-14-2024 Automated lymphocyte count as percentage of total leukocytes 8.6 % Low 19-41 [facility] M100.678on 08-14-2024 M100.678 Pending SARS-CoV-2 (COVID 19) Negative INFLUENZA A Negative INFLUENZA B Negative RSV PCR Negative Normal [facility] Comment on above: Performed By: #### M 100.678 ####[facility] [address] [facility] [address] [place], [place], [id number] MCV (RBC) [Entitic vol]Order ed By: Ciaran Rodrigez on 08-14-2024 MCV (mean corpuscular volume) determination 93.9 fL 81-99 [facility] MCV (RBC) [Entitic vol]Order ed By: Millie Massey on 08-14-2024 MCV (mean corpuscular volume) determination 92.8 fL 81-99 [facility] MCV (mean corpuscular volume ) determinationOrdered By: Millie Massey on 08-14-2024 MCV (RBC) [Entitic vol] 92.8 fL 81-99 [facility] Magnesiumon 08-14-2024 Magnesium [Mass/Vol] 1.4 mg/dL Low 1.5-2.2 [facility] Comment on above: Performed By: #### L 501.2300, L501.5200 ####[facility] [address] [place], [address] Magnesium [Mass/Vol] 1.5 mg/dL Normal 1.5-2.2 [facility] Comment on above: Order Comment: 206 Performed By: #### L 500.4100, L100.4500, L506.1001, L500.2500, L501.9520, L100.0500, L501.5200, L503.0106 ####[facility] [address] [facility] [place], [address] Magnesium (Unsp spec) [Mass/ Vol]Ordered By: Nikolas Magaña on 08-14-2024 Magnesium measurement (mass/volume) 1.4 mg/dL Low 1.5-2.2 [facility] Magnesium (Unsp spec) [Mass/ Vol]Ordered By: Millie Massey on 08-14-2024 Magnesium measurement (mass/volume) 1.5 mg/dL 1.5-2.2 [facility] Magnesium measurement (mass/ volume)Ordered By: Nikolas Magaña on 08-14-2024 Magnesium (Unsp spec) [Mass/Vol] 1.4 mg/dL Low 1.5-2.2 [facility] Magnesium measurement (mass/ volume)Ordered By: Millie Massey on 08-14-2024 Magnesium (Unsp spec) [Mass/Vol] 1.5 mg/dL 1.5-2.2 [facility] Manual differential comment Horace (Bld) [Interp]Ordered By: Millie Massey on 08-14-2024 Blood manual differential comment interpretation (narrative result) COMMENT [facility] Mean corpuscular hemoglobin (MCH) determinationOrdered By: Ciaran Rodrigez on 08-14-2024 Mean corpuscular hemoglobin (MCH) determination 28.2 pg 27.0-32.0 [facility] Mean corpuscular hemoglobin (MCH) determinationOrdered By: Millie Massey on 08-14-2024 MCH (RBC) [Entitic mass] 27.6 pg 27.0-32.0 [facility] Mean corpuscular hemoglobin (MCH) determination 27.6 pg 27.0-32.0 [facility] Mean corpuscular hemoglobin concentration (MCHC) determinationOrdered By: Ciaran Rodrigez on 08-14-2024 Mean corpuscular hemoglobin concentration (MCHC) determination 30.0 g/dL Low 32-36 [facility] Mean corpuscular hemoglobin concentration (MCHC) determinationOrdered By: Millie Massey on 08-14-2024 Mean corpuscular hemoglobin concentration (MCHC) determination 29.8 g/dL Low 32-36 [facility] Mean platelet volume determi nationOrdered By: Ciaran Rodrigez on 08-14-2024 Mean platelet volume determination 10.2 fl 6.2-12.0 [facility] Mean platelet volume determi nationOrdered By: Millie Massey on 08-14-2024 Mean platelet volume determination 10.8 fl 6.2-12.0 [facility] Measurement, pHOrdered By: Vika Rodrigez on 08-14-2024 pH (Unsp spec) 7.36 [pH] 7.35-7.45 [facility] Microscopic analysis of urin e for red blood cells (RBC)Ordered By: Ciaran Rodrigez on 08-14-2024 Microscopic analysis of urine for red blood cells (RBC) 0-5 SEEN /hpf 5-10 [facility] Monocyte percentageOrdered B y: Ciaran Rodrigez on 08-14-2024 Monocyte percentage 6.1 % 0-10 [facility] Mucus LM Ql (Urine sed)Order ed By: Ciaran Rodrigez on 08-14-2024 Mucus Ql (Urine sed) 0 SEEN /hpf [facility] Neutrophil percentageOrdered By: Ciaran Rodrigez on 08-14-2024 Neutrophil percentage 79.5 % High 47-70 [facility] Nitrite Test strip Ql (U)Ord ered By: Ciaran Rodrigez on 08-14-2024 Nitrite Ql (U) Negative Negative [facility] No Panel InformationOrdered By: Ciaran Rodrigez on 08-14-2024 ART [facility] R Radial [facility] Not entered [facility] Cannula [facility] 224 ng/L High <14 [facility] 29 U/L <32 [facility] Nucleated red blood cell per centageOrdered By: Ciaran Rodrigez on 08-14-2024 Nucleated red blood cell percentage 0 % 0-5 [facility] Oxygen saturation measuremen tOrdered By: Ciaran Rodrigez on 08-14-2024 Oxygen saturation measurement 98 % 95-99 [facility] Partial Thromboplast Timeon 08-14-2024 aPTT Coag (Bld) [Time] 33.6 s Normal 24.1-36.2 [facility] Comment on above: Performed By: #### L 300.3900, L300.4310 ####[facility] [address] [place], [place], [id number] Partial pressure of carbon d ioxide measurementOrdered By: Ciaran Rodrigez on 08-14-2024 Partial pressure of carbon dioxide measurement 39.1 mmHg 35-45 [facility] Partial pressure of oxygen m easurementOrdered By: Ciaran Rodrigez on 08-14-2024 Partial pressure of oxygen measurement 105 mmHG High 75-100 [facility] Phosphoruson 08-14-2024 Phosphate [Mass/Vol] 3.0 mg/dL Normal 2.7-4.5 [facility] Comment on above: Performed By: #### L 501.2300, L501.5200 ####[facility] [address] [place], [place], [id number] Platelet countOrdered By: Dakota Rodrigez on 08-14-2024 Platelet count 147 K/mm3 Low 150-450 [facility] Platelet countOrdered By: Carter Massey on 08-14-2024 Platelets (Bld) [#/Vol] 137 10*3/uL Low 150-450 [facility] Platelet count 137 K/mm3 Low 150-450 [facility] Potassium (Unsp spec) [Mass/ Vol]Ordered By: Ciaran Rodrigez on 08-14-2024 Potassium measurement (mass/volume) 5.4 mmol/L High 3.3-5.1 [facility] Potassium (Unsp spec) [Mass/ Vol]Ordered By: Millie Massey on 08-14-2024 Potassium measurement (mass/volume) 5.3 mmol/L High 3.3-5.1 [facility] Potassium measurement (mass/ volume)Ordered By: Millie Massey on 08-14-2024 Potassium (Unsp spec) [Mass/Vol] 5.3 mmol/L High 3.3-5.1 [facility] Protein Test strip Ql (U)Ord ered By: Ciaran Rodrigez on 08-14-2024 Protein Ql (U) 30 mg/dl High Negative [facility] Urine protein assay by test strip, semi-quantitative 30 mg/dl High Negative [facility] Protein, Totalon 08-14-2024 T PROT 5.4 g/dL Low 5.9-8.4 [facility] Comment on above: Performed By: #### L 504.2610, L001.0705 ####[facility] [address] [place], [address] Prothrombin Time w/INRon INR Coag (PPP) [Relative time] 1.1 {INR} Normal [facility] Comment on above: Performed By: #### L 300.3900, L300.4310 ####[facility] [address] [place], [address] PT Coag (PPP) [Time] 14.6 s Normal 11.7-14.9 [facility] Comment on above: Performed By: #### L 300.3900, L300.4310 ####[facility] [address] [place], [address] Prothrombin timeOrdered By: Ciaran Rodrigez on 08-14-2024 PT Coag (PPP) [Time] 14.6 s 11.7-14.9 [facility] Prothrombin time 14.6 SECONDS 11.7-14.9 [facility] RBC Auto (Bld) [#/Vol]Ordere d By: Ciaran Rodrigez on 08-14-2024 Automated blood erythrocyte count 3.09 M/mm3 Low 4.2-5.4 [facility] RBC Auto (Bld) [#/Vol]Ordere d By: Millie Massey on 08-14-2024 RBC (Bld) [#/Vol] 3.33 10*6/uL Low 4.2-5.4 [facility] Automated blood erythrocyte count 3.33 M/mm3 Low 4.2-5.4 [facility] Screening total cholesterol/ high density lipoprotein (HDL) cholesterol ratioOrdered By: Millie Massey on 08-14-2024 Screening total cholesterol/high density lipoprotein (HDL) cholesterol ratio 2.71 [facility] Serum creatinine measurement (mass/volume)Ordered By: Millie Massey on 08-14-2024 Creatinine [Mass/Vol] 1.34 mg/dL High 0.70-1.20 [facility] Serum globulin measurementOr dered By: Ciaran Rodrigez on 08-14-2024 Globulin (S) [Mass/Vol] 3.4 g/dL 2.2-4.2 [facility] Serum globulin measurement 3.4 g/dL 2.2-4.2 [facility] Serum glucose measurement (m ass/volume)Ordered By: Millie Massey on 08-14-2024 Glucose [Mass/Vol] 84 mg/dL 70-99 [facility] Serum or plasma alanine camargo otransferase (ALT) measurementOrdered By: Ciaran Rodrigez on 08-14-2024 ALT [Catalytic activity/Vol] 9 U/L <35 [facility] Serum or plasma albumin megan urement (mass/volume)Ordered By: Ciaran Walsh on 08-14-2024 Albumin [Mass/Vol] 2.0 g/dL Low 3.4-4.8 [facility] Serum or plasma albumin/glob ulin mass ratioOrdered By: Ciaran Rodrigez on 08-14-2024 Albumin/Globulin [Mass ratio] 0.6 {ratio} Low 0.9-2.4 [facility] Serum or plasma alkaline susan sphatase measurementOrdered By: Ciaran Rodrigez on 08-14-2024 ALP [Catalytic activity/Vol] 71 U/L 35-104 [facility] Serum or plasma calcium megan urement (mass/volume)Ordered By: Millie Massey on 08-14-2024 Calcium [Mass/Vol] 7.8 mg/dL 7.6-11.0 [facility] Serum or plasma cholesterol in HDL measurement (mass/volume)Ordered By: Millie Massey on 08-14-2024 Cholesterol in HDL [Mass/Vol] 27 mg/dL Low >40 [facility] Serum or plasma cholesterol measurement (mass/volume)Ordered By: Millie Massey on 08-14-2024 Cholesterol [Mass/Vol] 72 mg/dL <201 [facility] Serum or plasma urea nitroge n measurement (mass/volume)Ordered By: Millie Massey on 08-14-2024 Urea nitrogen [Mass/Vol] 39 mg/dL High 4-19 [facility] Serum phosphorus measurement Ordered By: Nikolas Magaña on 08-14-2024 Serum phosphorus measurement 3.0 mg/dL 2.7-4.5 [facility] Sodium levelOrdered By: Ward Rodrigez on 08-14-2024 Sodium level 131 mmol/L Low 133-145 [facility] Sodium levelOrdered By: Silvana Massey on 08-14-2024 Sodium [Moles/Vol] 132 mmol/L Low 133-145 [facility] Sodium level 132 mmol/L Low 133-145 [facility] Specific gravity (U) [Rel de nsity]Ordered By: Ciaran Rodrigez on 08-14-2024 Urine specific gravity measurement 1.010 1.002-1.03 0 [facility] Squamous epithelial cells de tection in urine sediment by light microscopyOrdered By: Ciaran Rodrigez on 08-14-2024 Epithelial cells.squamous LM Ql (Urine sed) 0-5 SEEN /hpf 5-10 [facility] TSH DL <= 0.005 mIU/L QnOrde red By: Millie Massey on 08-14-2024 TSH Qn 9.430 uIU/mL High 0.300-4.20 0 [facility] Serum or plasma thyroid stimulating hormone (TSH) measurement by high sensitivity met 9.430 uIU/mL High 0.300-4.20 0 [facility] Thyroid Stim Hormone (TSH)on 08-14-2024 TSH 9.430 uIU/mL High 0.300-4.20 0 [facility] Comment on above: Order Comment: 206 Performed By: #### L 500.4100, L100.4500, L506.1001, L500.2500, L501.9520, L100.0500, L501.5200, L503.0106 ####[facility] [address] [place], [place], [address] Total carbon dioxide measure mentOrdered By: Ciaran Rodrigez on 08-14-2024 CO2 [Moles/Vol] 23 mmol/L [facility] Total carbon dioxide measurement 23 mmol/L [facility] Total proteinOrdered By: Mkye Magaña on 08-14-2024 Protein [Mass/Vol] 5.4 g/dL Low 5.9-8.4 [facility] Total protein 5.4 g/dL Low 5.9-8.4 [facility] Total proteinOrdered By: Adelfo Rodrigez on 08-14-2024 Total protein 5.5 g/dL Low 5.9-8.4 [facility] Triglycerides measurementOrd ered By: Millie Massey on 08-14-2024 Triglycerides measurement 46 mg/dL <199 [facility] Troponin T.cardiac High sens itivity method [Mass/Vol]Ordered By: Ciaran Walsh on 08-14-2024 Troponin T.cardiac [Mass/volume] in Serum or Plasma by High sensitivity method 221 ng/L High <14 [facility] Troponin T.cardiac [Mass/vol ume] in Serum or Plasma by High sensitivity methodOrdered By: Ciaran Rodrigez on 08-14-2024 Troponin T.cardiac High sensitivity method [Mass/Vol] 221 ng/L High <14 [facility] Urea nitrogen [Mass/Vol]Orde red By: Ciaran Rodrigez on 08-14-2024 Serum or plasma urea nitrogen measurement (mass/volume) 39 mg/dL High - [facility] Urea nitrogen [Mass/Vol]Orde red By: Millie Massey on 08-14-2024 Serum or plasma urea nitrogen measurement (mass/volume) 39 mg/dL High 09-14 [facility] Urinalysis, Completeon 08-14 CA OX CRYSTAL 1+ /hpf Normal [facility] Comment on above: Order Comment: ADWOA CTOR TO SPECIFY Performed By: #### L 400.0001 ####[facility] [address] [place], [address] EPI,SQUAMOUS 0-5 SEEN Normal 5-10 [facility] Comment on above: Order Comment: ADWOA CTOR TO SPECIFY Performed By: #### L 400.0001 ####[facility] [address] [facility] [address] RBC 0-5 SEEN Normal 0-5 [facility] Comment on above: Order Comment: ADWOA CTOR TO SPECIFY Performed By: #### L 400.0001 ####[facility] [address] [place], [address] WBC 25-50 SEEN Normal 0-5 [facility] Comment on above: Order Comment: ADWOA CTOR TO SPECIFY Performed By: #### L 400.0001 ####[facility] [address] [place], [address] BACTERIA 0 SEEN Normal None Seen [facility] Comment on above: Order Comment: ADWOA CTOR TO SPECIFY Performed By: #### L 400.0001 ####[facility] [address] [place], [address] Mucus Ql (Urine sed) 0 SEEN Normal [facility] Comment on above: Order Comment: COLLE CTOR TO SPECIFY Performed By: #### L 400.0001 ####[facility] [address] [place], [address] Urine blood detectionOrdered By: Ciaran Rodrigez on 08-14-2024 Urine blood detection 25 /ul High Negative [facility] Urine clarityOrdered By: Adelfo Rodrigez on 08-14-2024 Clarity (U) Sl. Cloudy Clear [facility] Urine color determinationOrd ered By: Ciaran Rodrigez on 08-14-2024 Color (U) Yellow Yellow [facility] Urine cultureOrdered By: Adelfo Rodrigez on 08-14-2024 Bacteria identified Cx Nom (U) Enterococcus faecium Abnormal [facility] Bacteria identified Cx Nom (U) Citrobacter freundii Abnormal [facility] Urine culture Enterococcus faecium Abnormal [facility] Urine culture Citrobacter freundii Abnormal [facility] Urine glucose detectionOrder ed By: Ciaran Rodrigez on 08-14-2024 Glucose Ql (U) Normal mg/dl Normal [facility] Urine glucose detection Normal mg/dl Normal [facility] Urine leukocyte esterase det ection by dipstickOrdered By: Ciaran Rodrigez on 08-14-2024 Leukocyte esterase Test strip Ql (U) 500 /ul High Negative [facility] Urine pHOrdered By: Ciaran Ruelas on 08-14-2024 pH (U) 8.0 [pH] 5.0 - 8.0 [facility] Urine sediment bacteria coun t by microscopy (number/high power field)Ordered By: Ciaran Rodrigez on 08-14-2024 Bacteria LM.HPF (Urine sed) [#/Area] 0 /[HPF] None Seen [facility] Urine sediment bacteria count by microscopy (number/high power field) 0 SEEN /hpf [facility] Urine specific gravity measu rementOrdered By: Ciaran Rodrigez on 08-14-2024 Specific gravity (U) [Rel density] 1.010 1.002-1.03 0 [facility] Urine total bilirubin detect ion by test stripOrdered By: Ciaran Rodrigez on 08-14-2024 Urine total bilirubin detection by test strip Negative Negative [facility] Urine urobilinogen measureme ntOrdered By: Ciaran Rodrigez on 08-14-2024 Urobilinogen Ql (U) Normal mg/dl Normal [facility] Vitamin B12 ser/plasOrdered By: Millie Massey on 08-14-2024 Cobalamin (Vitamin B12) [Mass/Vol] 599 pg/mL 180-914 [facility] Vitamin D, 25-hydroxyOrdered By: Millie Massey on 08-14-2024 Vitamin D, 25-hydroxy 26.7 ng/mL Low 30-100 [facility] White blood cell (WBC) count Ordered By: Ciaran Rodrigez on 08-14-2024 White blood cell (WBC) count 9.0 K/mm3 4.4-11.0 [facility] White blood cell (WBC) count Ordered By: Millie Massey on 08-14-2024 WBC (Bld) [#/Vol] 4.1 10*3/uL Low 4.4-11.0 [facility] White blood cell (WBC) count 4.1 K/mm3 Low 4.4-11.0 [facility] White blood cell countOrdere d By: Ciaran Rodrigez on 08-14-2024 White blood cell count 25-50 SEEN /hpf 0-5 [facility] White blood cell count 25-50 SEEN /hpf 0-5 [facility] aPTT Coag (PPP) [Time]Ordere d By: Ciaran Rodrigez on 08-14-2024 Activated partial thromboplastin time (aPTT) in platelet poor plasma by coagulation a 33.6 Seconds 24.1-36.2 [facility] pH (U)Ordered By: Ciaran Prieto on 08-14-2024 Urine pH 8.0 5.0 - 8.0 [facility] pH (Unsp spec)Ordered By: Dakota Rodrigez on 08-14-2024 Measurement, pH 7.36 7.35-7.45 [facility] Absolute lymphocyte countOrd ered By: Nikolas Magaña on 08-13-2024 Lymphocytes Auto (Unsp spec) [#/Vol] 0.60 10*3/uL Low 0.83-4.51 [facility] Absolute neutrophil countOrd ered By: Nikolas Magaña on 08-13-2024 Absolute neutrophil count 3.4 X10^3/uL 2.0-7.7 [facility] Anion gap [Moles/Vol]Ordered By: Nikolas Magaña on 08-13-2024 Anion gap in Serum or Plasma 7 5-15 [facility] Anion gap in Serum or Plasma Ordered By: Nikolas Magaña on 08-13-2024 Anion gap [Moles/Vol] 7 mmol/L - [facility] Automated lymphocyte count a s percentage of total leukocytesOrdered By: Nikolas Magaña on 08-13-2024 Lymphocytes/100 WBC Auto (Unsp spec) 12.9 % Low 19-41 [facility] BUN/creatinine ratioOrdered By: Nikolas Magaña on 08-13-2024 Urea nitrogen/Creatinine [Mass ratio] 22.7 mg/mg High 10-20 [facility] BUN/creatinine ratio 22.7 RATIO High 10-20 [facility] Basic Metabolic Profile (BMP )on 08-13-2024 BUN/CRE 22.7 RATIO High 10-20 [facility] Comment on above: Order Comment: PER P CU NURSEVALERIY TO DRAW @0815 WITH GLUCOSE Performed By: #### L 100.0100, L500.2500 ####[facility] [address] [place], [address] Calcium [Mass/Vol] 7.8 mg/dL Normal 7.6-11.0 [facility] Comment on above: Order Comment: PER P CU NURSEVALERIY TO DRAW @0815 WITH GLUCOSE Performed By: #### L 100.0100, L500.2500 ####[facility] [address] [place], [address] Chloride [Moles/Vol] 106 mmol/L Normal 98-108 [facility] Comment on above: Order Comment: PER P CU NURSEVALERIY TO DRAW @0815 WITH GLUCOSE Performed By: #### L 100.0100, L500.2500 ####[facility] [address] [place], [address] CO2 [Moles/Vol] 23.8 mmol/L Normal 21.0-32.0 [facility] Comment on above: Order Comment: PER P CU NURSE, IMANAY TO DRAW @0815 WITH GLUCOSE Performed By: #### L 100.0100, L500.2500 ####[facility] [address] [place], [address] Creatinine [Mass/Vol] 1.21 mg/dL High 0.70-1.20 [facility] Comment on above: Order Comment: PER P CU NURSEVALERIY TO DRAW @0815 WITH GLUCOSE Performed By: #### L 100.0100, L500.2500 ####[facility] [address] [place], [address] ECRCL 30.44 ml/min Low 50-250 [facility] Comment on above: Order Comment: PER P CU NURSEVALERIY TO DRAW @0815 WITH GLUCOSE Performed By: #### L 100.0100, L500.2500 ####[facility] [address] [place], [address] GAP 7 Normal 5-15 [facility] Comment on above: Order Comment: PER P CU NURSEIMANAY TO DRAW @0815 WITH GLUCOSE Performed By: #### L 100.0100, L500.2500 ####[facility] [address] [place], [address] GFR/1.73 sq M.predicted among non-blacks MDRD (S/P/Bld) [Vol rate/Area] 51 mL/min/{1.73_m2} Low >60 [facility] Comment on above: Order Comment: PER P CU NURSEVALERIY TO DRAW @0815 WITH GLUCOSE Result Comment: mL/m in/1.73m2 CKD-EPI Creatinine Equation (2020) Performed By: #### L 100.0100, L500.2500 ####[facility] [address] [place], [address] Glucose [Mass/Vol] 85 mg/dL Normal 70-99 [facility] Comment on above: Order Comment: PER P CU NURSEVALERIY TO DRAW @0815 WITH GLUCOSE Performed By: #### L 100.0100, L500.2500 ####[facility] [address] [place], [address] Potassium [Moles/Vol] 4.3 mmol/L Normal 3.3-5.1 [facility] Comment on above: Order Comment: PER P CU NURSEVALERIY TO DRAW @0815 WITH GLUCOSE Performed By: #### L 100.0100, L500.2500 ####[facility] [address] [place], [address] Sodium [Moles/Vol] 137 mmol/L Normal 133-145 [facility] Comment on above: Order Comment: PER P CU NURSEVALERIY TO DRAW @0815 WITH GLUCOSE Performed By: #### L 100.0100, L500.2500 ####[facility] [address] [place], [address] Urea nitrogen [Mass/Vol] 28 mg/dL High 4-19 [facility] Comment on above: Order Comment: PER P CU NURSEVALERIY TO DRAW @0815 WITH GLUCOSE Performed By: #### L 100.0100, L500.2500 ####[facility] [address] [place], [address] Basophil percentageOrdered B y: Nikolas Magaña on 08-13-2024 Basophils/100 WBC (Bld) 1.1 % High 0-1 [facility] Basophil percentage 1.1 % High 0-1 [facility] Bedside Glucoseon 08-13-2024 FINGERSTICK GLU 134 mg/dL High 74-106 [facility] Comment on above: Result Comment: LUIZA GEMENT OF PATIENT CARE PER NURSING PROTOCOL Performed By: #### L 501.080 ####[facility] [address] [place], [address] FINGERSTICK GLU 86 mg/dL Normal 74-106 [facility] Comment on above: Result Comment: LUIZA GEMENT OF PATIENT CARE PER NURSING PROTOCOL Performed By: #### L 501.080 ####[facility] [address] [place], [address] FINGERSTICK GLU 31 mg/dL Invalid Interpretation Code 74-106 [facility] Comment on above: Result Comment: Dext tushar 50 GivenMANAGEMENT OF PATIENT CARE PER NURSING PROTOCOL Performed By: #### L 501.080 ####[facility] [address] [place], [address] FINGERSTICK GLU 54 mg/dL Low 74-106 [facility] Comment on above: Result Comment: LUIZA GEMENT OF PATIENT CARE PER NURSING PROTOCOL Performed By: #### L 501.080 ####[facility] [address] [place], [address] FINGERSTICK GLU 88 mg/dL Normal -[address] [place] [address] Comment on above: Result Comment: LUIZA GEMENT OF PATIENT CARE PER NURSING PROTOCOL Performed By: #### L 501.080 ####[facility] [address] [place], [address] FINGERSTICK GLU 93 mg/dL Normal [address] [place] [address] Comment on above: Result Comment: LUIZA GEMENT OF PATIENT CARE PER NURSING PROTOCOL Performed By: #### L 501.080 ####[facility] [address] [place], [address] CBC W/Diff, Automatedon - Absolute Lymph 0.60 X10 3/uL Low 0.83-4.51 [facility] Comment on above: Order Comment: PER P CU NURSE, OKAY TO DRAW @0815 WITH GLUCOSE Performed By: #### L 100.0100, L500.2500 ####[facility] [address] [place], [address] Absolute Neut 3.4 X10 3/uL Normal 2.0-7.7 [facility] Comment on above: Order Comment: PER P CU NURSE, IMANAY TO DRAW @0815 WITH GLUCOSE Performed By: #### L 100.0100, L500.2500 ####[facility] [address] [place], [address] Basophils/100 WBC (Bld) 1.1 % High 0-1 [facility] Comment on above: Order Comment: PER P CU NURSE, IMANAY TO DRAW @0815 WITH GLUCOSE Performed By: #### L 100.0100, L500.2500 ####[facility] [address] [place], [address] Eosinophils/100 WBC (Bld) 3.4 % Normal 0-5 [facility] Comment on above: Order Comment: PER P CU NURSE, IMANAY TO DRAW @0815 WITH GLUCOSE Performed By: #### L 100.0100, L500.2500 ####[facility] [address] [place], [address] Erythrocyte distribution width (RBC) [Ratio] 20.0 % High 11.6-14.6 [facility] Comment on above: Order Comment: PER P CU NURSE, IMANAY TO DRAW @0815 WITH GLUCOSE Performed By: #### L 100.0100, L500.2500 ####[facility] [address] [place], [address] Hematocrit (Bld) [Volume fraction] 26.7 % Low 37-47 [facility] Comment on above: Order Comment: PER P CU NURSE, OKAY TO DRAW @0815 WITH GLUCOSE Performed By: #### L 100.0100, L500.2500 ####[facility] [address] [place], [address] Hemoglobin (Bld) [Mass/Vol] 8.1 g/dL Low 12.0-15.0 [facility] Comment on above: Order Comment: PER P CU NURSEVALERIY TO DRAW @0815 WITH GLUCOSE Performed By: #### L 100.0100, L500.2500 ####[facility] [address] [place], [address] IG% 2.400 High 0.0-0.9 [facility] Comment on above: Order Comment: PER P CU NURSEVALERIY TO DRAW @0815 WITH GLUCOSE Result Comment: IG% - Immature Granulocytes (promyelocytes, myelocytes andmetamyelocytes) > 1% indicates that a LEFT SHIFT is Present. Performed By: #### L 100.0100, L500.2500 ####[facility] [address] [place], [address] Lymphocytes/100 WBC (Bld) 12.9 % Low 19-41 [facility] Comment on above: Order Comment: PER P CU NURSEVALERIY TO DRAW @0815 WITH GLUCOSE Performed By: #### L 100.0100, L500.2500 ####[facility] [address] [place], [address] MCH (RBC) [Entitic mass] 27.3 pg Normal 27.0-32.0 [facility] Comment on above: Order Comment: PER P CU NURSEVALERIY TO DRAW @0815 WITH GLUCOSE Performed By: #### L 100.0100, L500.2500 ####[facility] [address] [place], [address] MCHC (RBC) [Mass/Vol] 30.3 g/dL Low 32-36 [facility] Comment on above: Order Comment: PER P CU NURSEVALERIY TO DRAW @0815 WITH GLUCOSE Performed By: #### L 100.0100, L500.2500 ####[facility] [address] [place], [address] MCV (RBC) [Entitic vol] 89.9 fL Normal 81-99 [facility] Comment on above: Order Comment: PER P CU NURSE, OKAY TO DRAW @0815 WITH GLUCOSE Performed By: #### L 100.0100, L500.2500 ####[facility] [address] [place], [address] Monocytes/100 WBC (Bld) 8.2 % Normal 0-10 [facility] Comment on above: Order Comment: PER P CU NURSE, OKAY TO DRAW @0815 WITH GLUCOSE Performed By: #### L 100.0100, L500.2500 ####[facility] [address] [place], [address] Neutrophils/100 WBC (Bld) 72.0 % High 47-70 [facility] Comment on above: Order Comment: PER P CU NURSE, OKAY TO DRAW @0815 WITH GLUCOSE Performed By: #### L 100.0100, L500.2500 ####[facility] [address] [place], [address] Nucleated RBC (Bld) [#/Vol] 0 10*3/uL Normal 0-5 [facility] Comment on above: Order Comment: PER P CU NURSE, OKAY TO DRAW @0815 WITH GLUCOSE Performed By: #### L 100.0100, L500.2500 ####[facility] [address] [place], [address] Platelet mean volume (Bld) [Entitic vol] 10.2 fL Normal 6.2-12.0 [facility] Comment on above: Order Comment: PER P CU NURSE, OKAY TO DRAW @0815 WITH GLUCOSE Performed By: #### L 100.0100, L500.2500 ####[facility] [address] [place], [address] Platelets (Bld) [#/Vol] 120 10*3/uL Low 150-450 [facility] Comment on above: Order Comment: PER P CU NURSE, OKAY TO DRAW @0815 WITH GLUCOSE Performed By: #### L 100.0100, L500.2500 ####[facility] [address] [place], [address] RBC (Bld) [#/Vol] 2.97 10*6/uL Low 4.2-5.4 [facility] Comment on above: Order Comment: PER P CU NURSEVALERIY TO DRAW @0815 WITH GLUCOSE Performed By: #### L 100.0100, L500.2500 ####[facility] [address] [place], [address] RDW SD 62.6 fl High 35.1-43.9 [facility] Comment on above: Order Comment: PER P CU NURSEVALERIY TO DRAW @0815 WITH GLUCOSE Performed By: #### L 100.0100, L500.2500 ####[facility] [address] [place], [address] WBC (Bld) [#/Vol] 4.7 10*3/uL Normal 4.4-11.0 [facility] Comment on above: Order Comment: PER P CU NURSE, VALERIY TO DRAW @0815 WITH GLUCOSE Performed By: #### L 100.0100, L500.2500 ####[facility] [address] [place], [address] Calcium [Mass/Vol]Ordered By : Nikolas Magaña on 08-13-2024 Serum or plasma calcium measurement (mass/volume) 7.8 mg/dL 7.6-11.0 [facility] Carbon dioxide, total [Moles /volume] in Central venous bloodOrdered By: Nikolas Magaña on 08-13-2024 CO2 [Moles/Vol] 23.8 mmol/L 21.0-32.0 [facility] Carbon dioxide, total [Moles/volume] in Central venous blood 23.8 mmol/L 21.0-32.0 [facility] Chloride assayOrdered By: Oscar Magaña on 08-13-2024 Chloride [Moles/Vol] 106 mmol/L 98-108 [facility] Chloride assay 106 mmol/L 98-108 [facility] Creatinine [Mass/Vol]Ordered By: Nikolas Magaña on 08-13-2024 Serum creatinine measurement (mass/volume) 1.21 mg/dL High 0.70-1.20 [facility] Eosinophil percentageOrdered By: Nikolas Magaña on 08-13-2024 Eosinophils/100 WBC (Bld) 3.4 % 0-5 [facility] Eosinophil percentage 3.4 % 0-5 [facility] Erythrocyte distribution wid th (RBC) [Ratio]Ordered By: Nikolas Magaña on 08-13-2024 Erythrocyte distribution width ratio 20.0 % High 11.6-14.6 [facility] Erythrocyte distribution wid th ratioOrdered By: Nikolas Magaña on 08-13-2024 Erythrocyte distribution width (RBC) [Ratio] 20.0 % High 11.6-14.6 [facility] Erythrocyte distribution wid th standard deviationOrdered By: Nikolas Magaña on 08-13-2024 Erythrocyte distribution width (RBC) [Ratio] 62.6 fl High 35.1-43.9 [facility] Erythrocyte distribution width standard deviation 62.6 fl High 35.1-43.9 [facility] Estimation of creatinine austen aranceOrdered By: Nikolas Magaña on 08-13-2024 Estimation of creatinine clearance 30.44 ml/min Low 50-250 [facility] GFR/1.73 sq M.predicted víctor g non-blacks MDRD (S/P/Bld) [Vol rate/Area]Ordered By: Nikolas Magaña on 08-13-2024 Glomerular filtration rate (GFR) estimation/1.73 sq m using serum, plasma, or whole b 51 Low >60 [facility] Glomerular filtration rate ( GFR) estimation/1.73 sq m using serum, plasma, or whole bOrdered By: Nikolas Magaña on 08-13-2024 GFR/1.73 sq M.predicted among non-blacks MDRD (S/P/Bld) [Vol rate/Area] 51 mL/min/{1.73_m2} Low >60 [facility] Glucoseon 08-13-2024 Glucose [Mass/Vol] 121 mg/dL High 70-99 [facility] Comment on above: Performed By: #### L 501.0100 ####[facility] [address] [place], [address] Glucose [Mass/Vol] 105 mg/dL High 70-99 [facility] Comment on above: Performed By: #### L 501.0100 ####[facility] [address] [place], [address] Glucose [Mass/Vol] 103 mg/dL High 70-99 [facility] Comment on above: Performed By: #### L 501.0100 ####[facility] [address] [place], [address] Glucose [Mass/Vol]Ordered By : Judd Galvin on 08-13-2024 Serum glucose measurement (mass/volume) 121 mg/dL High 70-99 [facility] Glucose measurement at bedsi deOrdered By: Nikolas Magaña on 08-13-2024 Glucose [Mass/Vol] 134 mg/dL High 74-106 [facility] Glucose measurement at bedside 134 mg/dL High 74-106 [facility] HbA1c (Bld) [Mass fraction]O rdered By: Nikolas Magaña on 08-13-2024 Hemoglobin A1c percentage 5.1 % Low >5.7 [facility] Hematocrit Auto (Bld) [Volum e fraction]Ordered By: Nikolas Magaña on 08-13-2024 Hematocrit (Bld) [Volume fraction] 26.7 % Low 37-47 [facility] Automated blood hematocrit (percentage) 26.7 % Low 37-47 [facility] Hemoglobin A1con 08-13-2024 HbA1c (Bld) [Mass fraction] 5.1 % Low <=5.6 [facility] Comment on above: Order Comment: PER P RHIANNON NURSE, OKAY TO DRAW @0815 WITH GLUCOSE Performed By: #### L 501.9985 ####[facility] [address] [place], [address] Hemoglobin A1c percentageOrd ered By: Nikolas Magaña on 08-13-2024 HbA1c (Bld) [Mass fraction] 5.1 % Low >5.7 [facility] Hemoglobin measurementOrdere d By: Nikolas Magaña on 08-13-2024 Hemoglobin (Bld) [Mass/Vol] 8.1 g/dL Low 12.0-15.0 [facility] Hemoglobin measurement 8.1 g/dL Low 12.0-15.0 [facility] Immature granulocytes/100 WB C Auto (Bld)Ordered By: Nikolas Magaña on 08-13-2024 Immature granulocytes/100 WBC (Bld) 2.400 % High 0.0-0.9 [facility] Automated immature granulocyte percentage 2.400 % High 0.0-0.9 [facility] Lymphocytes Auto (Unsp spec) [#/Vol]Ordered By: Nikolas Magaña on 08-13-2024 Absolute lymphocyte count 0.60 X10^3/uL Low 0.83-4.51 [facility] Lymphocytes/100 WBC Auto (Un sp spec)Ordered By: Nikolas Magaña on 08-13-2024 Automated lymphocyte count as percentage of total leukocytes 12.9 % Low 19-41 [facility] MCV (RBC) [Entitic vol]Order ed By: Nikolas Magaña on 08-13-2024 MCV (mean corpuscular volume) determination 89.9 fL 81-99 [facility] MCV (mean corpuscular volume ) determinationOrdered By: Nikolas Magaña on 08-13-2024 MCV (RBC) [Entitic vol] 89.9 fL 81-99 [facility] Mean corpuscular hemoglobin (MCH) determinationOrdered By: Nikolas Magaña on 08-13-2024 MCH (RBC) [Entitic mass] 27.3 pg 27.0-32.0 [facility] Mean corpuscular hemoglobin (MCH) determination 27.3 pg 27.0-32.0 [facility] Mean corpuscular hemoglobin concentration (MCHC) determinationOrdered By: Nikolas Magaña on 08-13-2024 Mean corpuscular hemoglobin concentration (MCHC) determination 30.3 g/dL Low 32-36 [facility] Mean platelet volume determi nationOrdered By: Nikolas Magaña on 08-13-2024 Mean platelet volume determination 10.2 fl 6.2-12.0 [facility] Monocyte percentageOrdered B y: Nikolas Magaña on 08-13-2024 Monocytes/100 WBC (Bld) 8.2 % 0-10 [facility] Monocyte percentage 8.2 % 0-10 [facility] Neutrophil percentageOrdered By: Nikolas Magaña on 08-13-2024 Neutrophils/100 WBC (Bld) 72.0 % High 47-70 [facility] Neutrophil percentage 72.0 % High 47-70 [facility] Nucleated red blood cell per centageOrdered By: Nikolas Magaña on 08-13-2024 Nucleated red blood cell percentage 0 % 0-5 [facility] Platelet countOrdered By: Oscar Magaña on 08-13-2024 Platelets (Bld) [#/Vol] 120 10*3/uL Low 150-450 [facility] Platelet count 120 K/mm3 Low 150-450 [facility] Potassium (Unsp spec) [Mass/ Vol]Ordered By: Nikolas Magaña on 08-13-2024 Potassium measurement (mass/volume) 4.3 mmol/L 3.3-5.1 [facility] Potassium measurement (mass/ volume)Ordered By: Nikolas Magaña on 08-13-2024 Potassium (Unsp spec) [Mass/Vol] 4.3 mmol/L 3.3-5.1 [facility] RBC Auto (Bld) [#/Vol]Ordere d By: Nikolas Magaña on 08-13-2024 RBC (Bld) [#/Vol] 2.97 10*6/uL Low 4.2-5.4 [facility] Automated blood erythrocyte count 2.97 M/mm3 Low 4.2-5.4 [facility] Serum creatinine measurement (mass/volume)Ordered By: Nikolas Magaña on 08-13-2024 Creatinine [Mass/Vol] 1.21 mg/dL High 0.70-1.20 [facility] Serum glucose measurement (m ass/volume)Ordered By: Judd Galvin on 08-13-2024 Glucose [Mass/Vol] 121 mg/dL High 70-99 [facility] Serum or plasma calcium megan urement (mass/volume)Ordered By: Nikolas Magaña on 08-13-2024 Calcium [Mass/Vol] 7.8 mg/dL 7.6-11.0 [facility] Serum or plasma urea nitroge n measurement (mass/volume)Ordered By: Nikolas Magaña on 08-13-2024 Urea nitrogen [Mass/Vol] 28 mg/dL High 09-14 [facility] Sodium levelOrdered By: Hemanth Magaña on 08-13-2024 Sodium [Moles/Vol] 137 mmol/L 133-145 [facility] Sodium level 137 mmol/L 133-145 [facility] Urea nitrogen [Mass/Vol]Orde red By: Nikolas Magaña on 08-13-2024 Serum or plasma urea nitrogen measurement (mass/volume) 28 mg/dL High 09-14 [facility] White blood cell (WBC) count Ordered By: Nikolas Magaña on 08-13-2024 WBC (Bld) [#/Vol] 4.7 10*3/uL 4.4-11.0 [facility] White blood cell (WBC) count 4.7 K/mm3 4.4-11.0 [facility] ABORh Blood Type, Patienton 08-12-2024 ABO and Rh group Nom (Bld) Blood group O Rh(D) positive Normal [facility] Comment on above: Order Comment: CMV N EG? NNumber of units to transfuse: 1Reason for Ordering Blood: AcuteAre the blood/blood products to be transfused? YIs the patient having/had surgery? NNWhen ReadyNYA Performed By: #### B JUWAN, [id number], BTS, BtABORH, [id number] ####[facility] [address] [place], [place], [address] [id number] 08-12-2024 ANTIBODY ID Normal [facility] Comment on above: Result Comment: CFYA Performed By: #### B RC, [id number], BTS, BtABORH, [id number] ####[facility] [address] [place], [place], [address] BRCon 08-12-2024 Normal [facility] Comment on above: Result Comment: [id number] ON RC TRANSFUSED 08/12/24 1538 Performed By: #### B RC, [id number], BTS, BtABORH, [id number] ####[facility] [address] [place], [address] Basic Metabolic Profile (BMP )on 08-12-2024 BUN/CRE 18.0 RATIO Normal 10-20 [facility] Comment on above: Performed By: #### L 500.2500, L100.0100 ####[facility] [address] [place], [address] Calcium [Mass/Vol] 7.6 mg/dL Normal 7.6-11.0 [facility] Comment on above: Performed By: #### L 500.2500, L100.0100 ####[facility] [address] [place], [address] Chloride [Moles/Vol] 106 mmol/L Normal 98-108 [facility] Comment on above: Performed By: #### L 500.2500, L100.0100 ####[facility] [address] [place], [address] CO2 [Moles/Vol] 22.3 mmol/L Normal 21.0-32.0 [facility] Comment on above: Performed By: #### L 500.2500, L100.0100 ####[facility] [address] [place], [address] Creatinine [Mass/Vol] 1.47 mg/dL High 0.70-1.20 [facility] Comment on above: Performed By: #### L 500.2500, L100.0100 ####[facility] [address] [place], [address] ECRCL 26.31 ml/min Low 50-250 [facility] Comment on above: Performed By: #### L 500.2500, L100.0100 ####[facility] [address] [place], [address] GAP 8 Normal 5-15 [facility] Comment on above: Performed By: #### L 500.2500, L100.0100 ####[facility] [address] [place], [address] GFR/1.73 sq M.predicted among non-blacks MDRD (S/P/Bld) [Vol rate/Area] 40 mL/min/{1.73_m2} Low >60 [facility] Comment on above: Result Comment: mL/m in/1.73m2 CKD-EPI Creatinine Equation (2020) Performed By: #### L 500.2500, L100.0100 ####[facility] [address] [place], [address] Glucose [Mass/Vol] 104 mg/dL High 70-99 [facility] Comment on above: Performed By: #### L 500.2500, L100.0100 ####[facility] [address] [place], [address] Potassium [Moles/Vol] 4.0 mmol/L Normal 3.3-5.1 [facility] Comment on above: Performed By: #### L 500.2500, L100.0100 ####[facility] [address] [place], [address] Sodium [Moles/Vol] 136 mmol/L Normal 133-145 [facility] Comment on above: Performed By: #### L 500.2500, L100.0100 ####[facility] [address] [place], [address] Urea nitrogen [Mass/Vol] 27 mg/dL High 4-19 [facility] Comment on above: Performed By: #### L 500.2500, L100.0100 ####[facility] [address] [place], [address] Bedside Glucoseon 08-12-2024 FINGERSTICK GLU 61 mg/dL Low 74-106 [facility] Comment on above: Result Comment: LUIZA DIAZ OF PATIENT CARE PER NURSING PROTOCOL Performed By: #### L 501.080 ####[facility] [address] [place], [address] CBC W/Diff, Automatedon 03- Absolute Lymph 0.51 X10 3/uL Low 0.83-4.51 [facility] Comment on above: Performed By: #### L 500.2500, L100.0100 ####[facility] [address] [place], [address] Absolute Neut 4.0 X10 3/uL Normal 2.0-7.7 [facility] Comment on above: Performed By: #### L 500.2500, L100.0100 ####[facility] [address] [place], [address] Basophils/100 WBC (Bld) 0.4 % Normal 0-1 [facility] Comment on above: Performed By: #### L 500.2500, L100.0100 ####[facility] [address] [place], [address] Eosinophils/100 WBC (Bld) 3.4 % Normal 0-5 [facility] Comment on above: Performed By: #### L 500.2500, L100.0100 ####[facility] [address] [place], [address] Erythrocyte distribution width (RBC) [Ratio] 19.9 % High 11.6-14.6 [facility] Comment on above: Performed By: #### L 500.2500, L100.0100 ####[facility] [address] [place], [address] Hematocrit (Bld) [Volume fraction] 21.7 % Low 37-47 [facility] Comment on above: Performed By: #### L 500.2500, L100.0100 ####[facility] [address] [place], [address] Hemoglobin (Bld) [Mass/Vol] 6.6 g/dL Low 12.0-15.0 [facility] Comment on above: Performed By: #### L 500.2500, L100.0100 ####[facility] [address] [place], [address] IG% 1.600 High 0.0-0.9 [facility] Comment on above: Result Comment: IG% - Immature Granulocytes (promyelocytes, myelocytes andmetamyelocytes) > 1% indicates that a LEFT SHIFT is Present. Performed By: #### L 500.2500, L100.0100 ####[facility] [address] [place], [address] Lymphocytes/100 WBC (Bld) 10.1 % Low 19-41 [facility] Comment on above: Performed By: #### L 500.2500, L100.0100 ####[facility] [address] [place], [address] MCH (RBC) [Entitic mass] 27.2 pg Normal 27.0-32.0 [facility] Comment on above: Performed By: #### L 500.2500, L100.0100 ####[facility] [address] [place], [address] MCHC (RBC) [Mass/Vol] 30.4 g/dL Low 32-36 [facility] Comment on above: Performed By: #### L 500.2500, L100.0100 ####[facility] [address] [place], [address] MCV (RBC) [Entitic vol] 89.3 fL Normal 81-99 [facility] Comment on above: Performed By: #### L 500.2500, L100.0100 ####[facility] [address] [place], [address] Monocytes/100 WBC (Bld) 6.3 % Normal 0-10 [facility] Comment on above: Performed By: #### L 500.2500, L100.0100 ####[facility] [address] [place], [address] Neutrophils/100 WBC (Bld) 78.2 % High 47-70 [facility] Comment on above: Performed By: #### L 500.2500, L100.0100 ####[facility] [address] [place], [address] Nucleated RBC (Bld) [#/Vol] 0 10*3/uL Normal 0-5 [facility] Comment on above: Performed By: #### L 500.2500, L100.0100 ####[facility] [address] [place], [address] Platelet mean volume (Bld) [Entitic vol] 10.1 fL Normal 6.2-12.0 [facility] Comment on above: Performed By: #### L 500.2500, L100.0100 ####[facility] [address] [place], [address] Platelets (Bld) [#/Vol] 107 10*3/uL Low 150-450 [facility] Comment on above: Performed By: #### L 500.2500, L100.0100 ####[facility] [address] [place], [address] RBC (Bld) [#/Vol] 2.43 10*6/uL Low 4.2-5.4 [facility] Comment on above: Performed By: #### L 500.2500, L100.0100 ####[facility] [address] [place], [address] RDW SD 63.5 fl High 35.1-43.9 [facility] Comment on above: Performed By: #### L 500.2500, L100.0100 ####[facility] [address] [place], [address] WBC (Bld) [#/Vol] 5.1 10*3/uL Normal 4.4-11.0 [facility] Comment on above: Performed By: #### L 500.2500, L100.0100 ####[facility] [address] [place], [address] Glucoseon 08-12-2024 Glucose [Mass/Vol] 102 mg/dL High 70-99 [facility] Comment on above: Performed By: #### L 501.0100 ####[facility] [address] [place], [address] Glucose [Mass/Vol] 113 mg/dL High 70-99 [facility] Comment on above: Performed By: #### L 501.0100 ####[facility] [address] [place], [address] Glucose [Mass/Vol] 85 mg/dL Normal 70-[address] [place] [address] Comment on above: Performed By: #### L 501.0100 ####[facility] [address] [place], [address] Glucose [Mass/Vol] 109 mg/dL High 70-99 [facility] Comment on above: Performed By: #### L 501.0100 ####[facility] [address] [place], [address] Type AND Screenon 08-12-2024 Ab SCREEN GEL Positive Abnormal [facility] Comment on above: Order Comment: CMV N EG? NNumber of units to transfuse: 1Reason for Ordering Blood: AcuteAre the blood/blood products to be transfused? YIs the patient having/had surgery? NNWhen ReadyNYA Result Comment: AMENDED REPORT 08/12/24 1425: Antibody Screen previously reported as:Test not performed AMENDED REPORT 08/12/24 1425: Antibody Screen previously reported as:Test not performed Performed By: #### B JUWAN, [id number], BTS, BtABORH, [id number] ####[facility] [address] [place], [address] Basic Metabolic Profile (BMP )on 08-11-2024 BUN/CRE 18.6 RATIO Normal 10-20 [facility] Comment on above: Performed By: #### L 100.0100, L500.2500 ####[facility] [address] [place], [address] Calcium [Mass/Vol] 7.4 mg/dL Low 7.6-11.0 [facility] Comment on above: Performed By: #### L 100.0100, L500.2500 ####[facility] [address] [place], [address] Chloride [Moles/Vol] 106 mmol/L Normal 98-108 [facility] Comment on above: Performed By: #### L 100.0100, L500.2500 ####[facility] [address] [place], [address] CO2 [Moles/Vol] 21.3 mmol/L Normal 21.0-32.0 [facility] Comment on above: Performed By: #### L 100.0100, L500.2500 ####[facility] [address] [place], [address] Creatinine [Mass/Vol] 1.39 mg/dL High 0.70-1.20 [facility] Comment on above: Performed By: #### L 100.0100, L500.2500 ####[facility] [address] [place], [address] ECRCL 27.82 ml/min Low 50-250 [facility] Comment on above: Performed By: #### L 100.0100, L500.2500 ####[facility] [address] [place], [address] GAP 9 Normal 5-15 [facility] Comment on above: Performed By: #### L 100.0100, L500.2500 ####[facility] [address] [place], [address] GFR/1.73 sq M.predicted among non-blacks MDRD (S/P/Bld) [Vol rate/Area] 43 mL/min/{1.73_m2} Low >60 [facility] Comment on above: Result Comment: mL/m in/1.73m2 CKD-EPI Creatinine Equation (2020) Performed By: #### L 100.0100, L500.2500 ####[facility] [address] [place], [address] Glucose [Mass/Vol] 114 mg/dL High 70-99 [facility] Comment on above: Performed By: #### L 100.0100, L500.2500 ####[facility] [address] [place], [address] Potassium [Moles/Vol] 3.7 mmol/L Normal 3.3-5.1 [facility] Comment on above: Performed By: #### L 100.0100, L500.2500 ####[facility] [address] [place], [address] Sodium [Moles/Vol] 136 mmol/L Normal 133-145 [facility] Comment on above: Performed By: #### L 100.0100, L500.2500 ####[facility] [address] [place], [address] Urea nitrogen [Mass/Vol] 26 mg/dL High 4-19 [facility] Comment on above: Performed By: #### L 100.0100, L500.2500 ####[facility] [address] [place], [address] CBC W/Diff, Automatedon 07-27 Absolute Lymph 0.53 X10 3/uL Low 0.83-4.51 [facility] Comment on above: Performed By: #### L 100.0100, L500.2500 ####[facility] [address] [place], [address] Absolute Neut 5.3 X10 3/uL Normal 2.0-7.7 [facility] Comment on above: Performed By: #### L 100.0100, L500.2500 ####[facility] [address] [place], [address] Basophils/100 WBC (Bld) 0.6 % Normal 0-1 [facility] Comment on above: Performed By: #### L 100.0100, L500.2500 ####[facility] [address] [place], [address] Eosinophils/100 WBC (Bld) 2.8 % Normal 0-5 [facility] Comment on above: Performed By: #### L 100.0100, L500.2500 ####[facility] [address] [place], [address] Erythrocyte distribution width (RBC) [Ratio] 19.5 % High 11.6-14.6 [facility] Comment on above: Performed By: #### L 100.0100, L500.2500 ####[facility] [address] [place], [address] Hematocrit (Bld) [Volume fraction] 24.7 % Low 37-47 [facility] Comment on above: Performed By: #### L 100.0100, L500.2500 ####[facility] [address] [place], [address] Hemoglobin (Bld) [Mass/Vol] 7.4 g/dL Low 12.0-15.0 [facility] Comment on above: Performed By: #### L 100.0100, L500.2500 ####[facility] [address] [place], [address] IG% 1.400 High 0.0-0.9 [facility] Comment on above: Result Comment: IG% - Immature Granulocytes (promyelocytes, myelocytes andmetamyelocytes) > 1% indicates that a LEFT SHIFT is Present. Performed By: #### L 100.0100, L500.2500 ####[facility] [address] [place], [address] Lymphocytes/100 WBC (Bld) 8.3 % Low 19-41 [facility] Comment on above: Performed By: #### L 100.0100, L500.2500 ####[facility] [address] [place], [address] MCH (RBC) [Entitic mass] 26.9 pg Low 27.0-32.0 [facility] Comment on above: Performed By: #### L 100.0100, L500.2500 ####[facility] [address] [place], [address] MCHC (RBC) [Mass/Vol] 30.0 g/dL Low 32-36 [facility] Comment on above: Performed By: #### L 100.0100, L500.2500 ####[facility] [address] [place], [address] MCV (RBC) [Entitic vol] 89.8 fL Normal 81-99 [facility] Comment on above: Performed By: #### L 100.0100, L500.2500 ####[facility] [address] [place], [address] Monocytes/100 WBC (Bld) 4.8 % Normal 0-10 [facility] Comment on above: Performed By: #### L 100.0100, L500.2500 ####[facility] [address] [place], [address] Neutrophils/100 WBC (Bld) 82.1 % High 47-70 [facility] Comment on above: Performed By: #### L 100.0100, L500.2500 ####[facility] [address] [place], [address] Nucleated RBC (Bld) [#/Vol] 0 10*3/uL Normal 0-5 [facility] Comment on above: Performed By: #### L 100.0100, L500.2500 ####[facility] [address] [place], [address] Platelet mean volume (Bld) [Entitic vol] 10.0 fL Normal 6.2-12.0 [facility] Comment on above: Performed By: #### L 100.0100, L500.2500 ####[facility] [address] [place], [address] Platelets (Bld) [#/Vol] 113 10*3/uL Low 150-450 [facility] Comment on above: Performed By: #### L 100.0100, L500.2500 ####[facility] [address] [place], [address] RBC (Bld) [#/Vol] 2.75 10*6/uL Low 4.2-5.4 [facility] Comment on above: Performed By: #### L 100.0100, L500.2500 ####[facility] [address] [place], [address] RDW SD 62.7 fl High 35.1-43.9 [facility] Comment on above: Performed By: #### L 100.0100, L500.2500 ####[facility] [address] [place], [address] WBC (Bld) [#/Vol] 6.4 10*3/uL Normal 4.4-11.0 [facility] Comment on above: Performed By: #### L 100.0100, L500.2500 ####[facility] [address] [place], [address] Glucoseon 08-11-2024 Glucose [Mass/Vol] 99 mg/dL Normal 70-99 [facility] Comment on above: Performed By: #### L 501.0100 ####[facility] [address] [place], [address] Glucose [Mass/Vol] 99 mg/dL Normal 70-99 [facility] Comment on above: Performed By: #### L 501.0100 ####[facility] [address] [place], [address] Glucose [Mass/Vol] 123 mg/dL High 70-99 [facility] Comment on above: Performed By: #### L 501.0100 ####[facility] [address] [place], [address] Glucose [Mass/Vol] 127 mg/dL High 70-99 [facility] Comment on above: Performed By: #### L 501.0100 ####[facility] [address] [place], [address] Basic Metabolic Profile (BMP )on 08-10-2024 BUN/CRE 18.0 RATIO Normal 10-20 [facility] Comment on above: Performed By: #### L 100.0100, L500.2500 ####[facility] [address] [place], [address] Calcium [Mass/Vol] 7.6 mg/dL Normal 7.6-11.0 [facility] Comment on above: Performed By: #### L 100.0100, L500.2500 ####[facility] [address] [place], [address] Chloride [Moles/Vol] 105 mmol/L Normal 98-108 [facility] Comment on above: Performed By: #### L 100.0100, L500.2500 ####[facility] [address] [place], [address] CO2 [Moles/Vol] 23.2 mmol/L Normal 21.0-32.0 [facility] Comment on above: Performed By: #### L 100.0100, L500.2500 ####[facility] [address] [place], [address] Creatinine [Mass/Vol] 1.17 mg/dL Normal 0.70-1.20 [facility] Comment on above: Performed By: #### L 100.0100, L500.2500 ####[facility] [address] [place], [address] ECRCL 33.06 ml/min Low 50-250 [facility] Comment on above: Performed By: #### L 100.0100, L500.2500 ####[facility] [address] [place], [address] GAP 8 Normal 5-15 [facility] Comment on above: Performed By: #### L 100.0100, L500.2500 ####[facility] [address] [place], [address] GFR/1.73 sq M.predicted among non-blacks MDRD (S/P/Bld) [Vol rate/Area] 53 mL/min/{1.73_m2} Low >60 [facility] Comment on above: Result Comment: mL/m in/1.73m2 CKD-EPI Creatinine Equation (2020) Performed By: #### L 100.0100, L500.2500 ####[facility] [address] [place], [address] Glucose [Mass/Vol] 106 mg/dL High 70-99 [facility] Comment on above: Performed By: #### L 100.0100, L500.2500 ####[facility] [address] [place], [address] Potassium [Moles/Vol] 3.7 mmol/L Normal 3.3-5.1 [facility] Comment on above: Performed By: #### L 100.0100, L500.2500 ####[facility] [address] [place], [address] Sodium [Moles/Vol] 136 mmol/L Normal 133-145 [facility] Comment on above: Performed By: #### L 100.0100, L500.2500 ####[facility] [address] [place], [address] Urea nitrogen [Mass/Vol] 21 mg/dL High 4-19 [facility] Comment on above: Performed By: #### L 100.0100, L500.2500 ####[facility] [address] [place], [address] Bedside Glucoseon 08-10-2024 FINGERSTICK GLU 45 mg/dL Low 74-106 [facility] Comment on above: Result Comment: LUIZA DIAZ OF PATIENT CARE PER NURSING PROTOCOL Performed By: #### L 501.080 ####[facility] [address] [place], [address] CBC W/Diff, Automatedon - Absolute Lymph 0.58 X10 3/uL Low 0.83-4.51 [facility] Comment on above: Performed By: #### L 100.0100, L500.2500 ####[facility] [address] [place], [address] Absolute Neut 5.6 X10 3/uL Normal 2.0-7.7 [facility] Comment on above: Performed By: #### L 100.0100, L500.2500 ####[facility] [address] [place], [address] Basophils/100 WBC (Bld) 1.1 % High 0-1 [facility] Comment on above: Performed By: #### L 100.0100, L500.2500 ####[facility] [address] [place], [address] Eosinophils/100 WBC (Bld) 3.0 % Normal 0-5 [facility] Comment on above: Performed By: #### L 100.0100, L500.2500 ####[facility] [address] [place], [address] Erythrocyte distribution width (RBC) [Ratio] 19.4 % High 11.6-14.6 [facility] Comment on above: Performed By: #### L 100.0100, L500.2500 ####[facility] [address] [place], [address] Hematocrit (Bld) [Volume fraction] 29.4 % Low 37-47 [facility] Comment on above: Performed By: #### L 100.0100, L500.2500 ####[facility] [address] [place], [address] Hemoglobin (Bld) [Mass/Vol] 8.8 g/dL Low 12.0-15.0 [facility] Comment on above: Performed By: #### L 100.0100, L500.2500 ####[facility] [address] [place], [address] IG% 1.400 High 0.0-0.9 [facility] Comment on above: Result Comment: IG% - Immature Granulocytes (promyelocytes, myelocytes andmetamyelocytes) > 1% indicates that a LEFT SHIFT is Present. Performed By: #### L 100.0100, L500.2500 ####[facility] [address] [place], [address] Lymphocytes/100 WBC (Bld) 8.3 % Low 19-41 [facility] Comment on above: Performed By: #### L 100.0100, L500.2500 ####[facility] [address] [place], [address] MCH (RBC) [Entitic mass] 26.8 pg Low 27.0-32.0 [facility] Comment on above: Performed By: #### L 100.0100, L500.2500 ####[facility] [address] [place], [address] MCHC (RBC) [Mass/Vol] 29.9 g/dL Low 32-36 [facility] Comment on above: Performed By: #### L 100.0100, L500.2500 ####[facility] [address] [place], [address] MCV (RBC) [Entitic vol] 89.6 fL Normal 81-99 [facility] Comment on above: Performed By: #### L 100.0100, L500.2500 ####[facility] [address] [place], [address] Monocytes/100 WBC (Bld) 5.2 % Normal 0-10 [facility] Comment on above: Performed By: #### L 100.0100, L500.2500 ####[facility] [address] [place], [address] Neutrophils/100 WBC (Bld) 81.0 % High 47-70 [facility] Comment on above: Performed By: #### L 100.0100, L500.2500 ####[facility] [address] [place], [address] Nucleated RBC (Bld) [#/Vol] 0 10*3/uL Normal 0-5 [facility] Comment on above: Performed By: #### L 100.0100, L500.2500 ####[facility] [address] [place], [address] Platelet mean volume (Bld) [Entitic vol] 10.0 fL Normal 6.2-12.0 [facility] Comment on above: Performed By: #### L 100.0100, L500.2500 ####[facility] [address] [place], [address] Platelets (Bld) [#/Vol] 125 10*3/uL Low 150-450 [facility] Comment on above: Performed By: #### L 100.0100, L500.2500 ####[facility] [address] [place], [address] RBC (Bld) [#/Vol] 3.28 10*6/uL Low 4.2-5.4 [facility] Comment on above: Performed By: #### L 100.0100, L500.2500 ####[facility] [address] [place], [address] RDW SD 63.1 fl High 35.1-43.9 [facility] Comment on above: Performed By: #### L 100.0100, L500.2500 ####[facility] [address] [place], [address] WBC (Bld) [#/Vol] 7.0 10*3/uL Normal 4.4-11.0 [facility] Comment on above: Performed By: #### L 100.0100, L500.2500 ####[facility] [address] [place], [address] Glucoseon 08-10-2024 Glucose [Mass/Vol] 139 mg/dL High 70-99 [facility] Comment on above: Performed By: #### L 501.0100 ####[facility] [address] [place], [address] Glucose [Mass/Vol] 135 mg/dL High 70-99 [facility] Comment on above: Performed By: #### L 501.0100 ####[facility] [address] [place], [address] Basic Metabolic Profile (BMP )on 08-09-2024 BUN/CRE 20.7 RATIO High 10-20 [facility] Comment on above: Performed By: #### L 100.0100, L500.2500 ####[facility] [address] [place], [address] Calcium [Mass/Vol] 7.4 mg/dL Low 7.6-11.0 [facility] Comment on above: Performed By: #### L 100.0100, L500.2500 ####[facility] [address] [place], [address] Chloride [Moles/Vol] 105 mmol/L Normal 98-108 [facility] Comment on above: Performed By: #### L 100.0100, L500.2500 ####[facility] [address] [place], [address] CO2 [Moles/Vol] 20.7 mmol/L Low 21.0-32.0 [facility] Comment on above: Performed By: #### L 100.0100, L500.2500 ####[facility] [address] [place], [address] Creatinine [Mass/Vol] 1.43 mg/dL High 0.70-1.20 [facility] Comment on above: Performed By: #### L 100.0100, L500.2500 ####[facility] [address] [place], [address] ECRCL 27.63 ml/min Low 50-250 [facility] Comment on above: Performed By: #### L 100.0100, L500.2500 ####[facility] [address] [place], [address] GAP 9 Normal 5-15 [facility] Comment on above: Performed By: #### L 100.0100, L500.2500 ####[facility] [address] [place], [address] GFR/1.73 sq M.predicted among non-blacks MDRD (S/P/Bld) [Vol rate/Area] 41 mL/min/{1.73_m2} Low >60 [facility] Comment on above: Result Comment: mL/m in/1.73m2 CKD-EPI Creatinine Equation (2020) Performed By: #### L 100.0100, L500.2500 ####[facility] [address] [place], [address] Glucose [Mass/Vol] 83 mg/dL Normal 70-99 [facility] Comment on above: Performed By: #### L 100.0100, L500.2500 ####[facility] [address] [place], [address] Potassium [Moles/Vol] 3.9 mmol/L Normal 3.3-5.1 [facility] Comment on above: Performed By: #### L 100.0100, L500.2500 ####[facility] [address] [place], [address] Sodium [Moles/Vol] 134 mmol/L Normal 133-145 [facility] Comment on above: Performed By: #### L 100.0100, L500.2500 ####[facility] [address] [place], [address] Urea nitrogen [Mass/Vol] 30 mg/dL High 4-19 [facility] Comment on above: Performed By: #### L 100.0100, L500.2500 ####[facility] [address] [place], [address] Bedside Glucoseon 08-09-2024 FINGERSTICK GLU 77 mg/dL Normal 74-106 [facility] Comment on above: Result Comment: LUIZA DIAZ OF PATIENT CARE PER NURSING PROTOCOL Performed By: #### L 501.080 ####[facility] [address] [place], [address] CBC W/Diff, Automatedon - Absolute Lymph 0.38 X10 3/uL Low 0.83-4.51 [facility] Comment on above: Performed By: #### L 100.0100, L500.2500 ####[facility] [address] [place], [address] Absolute Neut 5.4 X10 3/uL Normal 2.0-7.7 [facility] Comment on above: Performed By: #### L 100.0100, L500.2500 ####[facility] [address] [place], [address] Basophils/100 WBC (Bld) 0.8 % Normal 0-1 [facility] Comment on above: Performed By: #### L 100.0100, L500.2500 ####[facility] [address] [place], [address] Eosinophils/100 WBC (Bld) 1.9 % Normal 0-5 [facility] Comment on above: Performed By: #### L 100.0100, L500.2500 ####[facility] [address] [place], [address] Erythrocyte distribution width (RBC) [Ratio] 18.8 % High 11.6-14.6 [facility] Comment on above: Performed By: #### L 100.0100, L500.2500 ####[facility] [address] [place], [address] Hematocrit (Bld) [Volume fraction] 27.4 % Low 37-47 [facility] Comment on above: Performed By: #### L 100.0100, L500.2500 ####[facility] [address] [place], [address] Hemoglobin (Bld) [Mass/Vol] 8.3 g/dL Low 12.0-15.0 [facility] Comment on above: Performed By: #### L 100.0100, L500.2500 ####[facility] [address] [place], [address] IG% 2.000 High 0.0-0.9 [facility] Comment on above: Result Comment: IG% - Immature Granulocytes (promyelocytes, myelocytes andmetamyelocytes) > 1% indicates that a LEFT SHIFT is Present. Performed By: #### L 100.0100, L500.2500 ####[facility] [address] [place], [address] Lymphocytes/100 WBC (Bld) 6.0 % Low 19-41 [facility] Comment on above: Performed By: #### L 100.0100, L500.2500 ####[facility] [address] [place], [address] MCH (RBC) [Entitic mass] 26.7 pg Low 27.0-32.0 [facility] Comment on above: Performed By: #### L 100.0100, L500.2500 ####[facility] [address] [place], [address] MCHC (RBC) [Mass/Vol] 30.3 g/dL Low 32-36 [facility] Comment on above: Performed By: #### L 100.0100, L500.2500 ####[facility] [address] [place], [address] MCV (RBC) [Entitic vol] 88.1 fL Normal 81-99 [facility] Comment on above: Performed By: #### L 100.0100, L500.2500 ####[facility] [address] [place], [address] Monocytes/100 WBC (Bld) 5.0 % Normal 0-10 [facility] Comment on above: Performed By: #### L 100.0100, L500.2500 ####[facility] [address] [place], [address] Neutrophils/100 WBC (Bld) 84.3 % High 47-70 [facility] Comment on above: Performed By: #### L 100.0100, L500.2500 ####[facility] [address] [place], [address] Nucleated RBC (Bld) [#/Vol] 0 10*3/uL Normal 0-5 [facility] Comment on above: Performed By: #### L 100.0100, L500.2500 ####[facility] [address] [place], [address] Platelet mean volume (Bld) [Entitic vol] 10.3 fL Normal 6.2-12.0 [facility] Comment on above: Performed By: #### L 100.0100, L500.2500 ####[facility] [address] [place], [address] Platelets (Bld) [#/Vol] 111 10*3/uL Low 150-450 [facility] Comment on above: Performed By: #### L 100.0100, L500.2500 ####[facility] [address] [place], [address] RBC (Bld) [#/Vol] 3.11 10*6/uL Low 4.2-5.4 [facility] Comment on above: Performed By: #### L 100.0100, L500.2500 ####[facility] [address] [place], [address] RDW SD 60.7 fl High 35.1-43.9 [facility] Comment on above: Performed By: #### L 100.0100, L500.2500 ####[facility] [address] [place], [address] WBC (Bld) [#/Vol] 6.4 10*3/uL Normal 4.4-11.0 [facility] Comment on above: Performed By: #### L 100.0100, L500.2500 ####[facility] [address] [place], [address] Glucoseon 08-09-2024 Glucose [Mass/Vol] 108 mg/dL High 70-99 [facility] Comment on above: Order Comment: Comme nts: blood sugar monitoring, poor peripheral perfusion Performed By: #### L 501.0100 ####[facility] [address] [place], [address] Glucose [Mass/Vol] 100 mg/dL High 70-99 [facility] Comment on above: Order Comment: Comme nts: Glucose mon q6h, poor perfusion for finger stick Performed By: #### L 501.0100 ####[facility] [address] [place], [address] Abdomen/Pelvis WITH Contrast on 08-08-2024 Abdomen/Pelvis WITH Contrast Normal [facility] Basic Metabolic Profile (BMP )on 08-08-2024 BUN/CRE 24.5 RATIO High 10-20 [facility] Comment on above: Performed By: #### L 100.0100, L500.2500 ####[facility] [address] [place], [address] Calcium [Mass/Vol] 7.7 mg/dL Normal 7.6-11.0 [facility] Comment on above: Performed By: #### L 100.0100, L500.2500 ####[facility] [address] [place], [address] Chloride [Moles/Vol] 104 mmol/L Normal 98-108 [facility] Comment on above: Performed By: #### L 100.0100, L500.2500 ####[facility] [address] [place], [address] CO2 [Moles/Vol] 22.6 mmol/L Normal 21.0-32.0 [facility] Comment on above: Performed By: #### L 100.0100, L500.2500 ####[facility] [address] [place], [address] Creatinine [Mass/Vol] 1.31 mg/dL High 0.70-1.20 [facility] Comment on above: Performed By: #### L 100.0100, L500.2500 ####[facility] [address] [place], [address] ECRCL 30.16 ml/min Low 50-250 [facility] Comment on above: Performed By: #### L 100.0100, L500.2500 ####[facility] [address] [place], [address] GAP 9 Normal 5-15 [facility] Comment on above: Performed By: #### L 100.0100, L500.2500 ####[facility] [address] [place], [address] GFR/1.73 sq M.predicted among non-blacks MDRD (S/P/Bld) [Vol rate/Area] 46 mL/min/{1.73_m2} Low >60 [facility] Comment on above: Result Comment: mL/m in/1.73m2 CKD-EPI Creatinine Equation (2020) Performed By: #### L 100.0100, L500.2500 ####[facility] [address] [place], [address] Glucose [Mass/Vol] 89 mg/dL Normal 70-99 [facility] Comment on above: Performed By: #### L 100.0100, L500.2500 ####[facility] [address] [place], [address] Potassium [Moles/Vol] 3.8 mmol/L Normal 3.3-5.1 [facility] Comment on above: Performed By: #### L 100.0100, L500.2500 ####[facility] [address] [place], [address] Sodium [Moles/Vol] 135 mmol/L Normal 133-145 [facility] Comment on above: Performed By: #### L 100.0100, L500.2500 ####[facility] [address] [place], [address] Urea nitrogen [Mass/Vol] 32 mg/dL High 4-19 [facility] Comment on above: Performed By: #### L 100.0100, L500.2500 ####[facility] [address] [place], [address] Bedside Glucoseon 08-08-2024 FINGERSTICK GLU 84 mg/dL Normal 74-106 [facility] Comment on above: Result Comment: LUIZA GEMENT OF PATIENT CARE PER NURSING PROTOCOL Performed By: #### L 501.080 ####[facility] [address] [place], [address] FINGERSTICK GLU 136 mg/dL High 74-106 [facility] Comment on above: Result Comment: LUIZA GEMENT OF PATIENT CARE PER NURSING PROTOCOL Performed By: #### L 501.080 ####[facility] [address] [place], [address] FINGERSTICK GLU 53 mg/dL Low 74-106 [facility] Comment on above: Result Comment: LUIZA GEMENT OF PATIENT CARE PER NURSING PROTOCOL Performed By: #### L 501.080 ####[facility] [address] [place], [address] FINGERSTICK GLU 55 mg/dL Low 74-106 [facility] Comment on above: Result Comment: LUIZA GEMENT OF PATIENT CARE PER NURSING PROTOCOL Performed By: #### L 501.080 ####[facility] [address] [place], [address] CBC W/Diff, Automatedon 07-27 Absolute Lymph 0.67 X10 3/uL Low 0.83-4.51 [facility] Comment on above: Performed By: #### L 100.0100, L500.2500 ####[facility] [id number] [place], [address] Absolute Neut 7.2 X10 3/uL Normal 2.0-7.7 [facility] Comment on above: Performed By: #### L 100.0100, L500.2500 ####[facility] [id number] [place], [address] Basophils/100 WBC (Bld) 0.6 % Normal 0-1 [facility] Comment on above: Performed By: #### L 100.0100, L500.2500 ####[facility] [id number] [place], [address] Eosinophils/100 WBC (Bld) 1.2 % Normal 0-5 [facility] Comment on above: Performed By: #### L 100.0100, L500.2500 ####[facility] [id number] [place], [address] Erythrocyte distribution width (RBC) [Ratio] 18.6 % High 11.6-14.6 [facility] Comment on above: Performed By: #### L 100.0100, L500.2500 ####[facility] [address] [place], [address] Hematocrit (Bld) [Volume fraction] 27.8 % Low 37-47 [facility] Comment on above: Performed By: #### L 100.0100, L500.2500 ####[facility] [address] [place], [address] Hemoglobin (Bld) [Mass/Vol] 8.6 g/dL Low 12.0-15.0 [facility] Comment on above: Performed By: #### L 100.0100, L500.2500 ####[facility] [address] [place], [address] IG% 1.400 High 0.0-0.9 [facility] Comment on above: Result Comment: IG% - Immature Granulocytes (promyelocytes, myelocytes andmetamyelocytes) > 1% indicates that a LEFT SHIFT is Present. Performed By: #### L 100.0100, L500.2500 ####[facility] [address] [place], [address] Lymphocytes/100 WBC (Bld) 7.9 % Low 19-41 [facility] Comment on above: Performed By: #### L 100.0100, L500.2500 ####[facility] [address] [place], [address] MCH (RBC) [Entitic mass] 27.1 pg Normal 27.0-32.0 [facility] Comment on above: Performed By: #### L 100.0100, L500.2500 ####[facility] [address] [place], [address] MCHC (RBC) [Mass/Vol] 30.9 g/dL Low 32-36 [facility] Comment on above: Performed By: #### L 100.0100, L500.2500 ####[facility] [address] [place], [address] MCV (RBC) [Entitic vol] 87.7 fL Normal 81-99 [facility] Comment on above: Performed By: #### L 100.0100, L500.2500 ####[facility] [address] [place], [address] Monocytes/100 WBC (Bld) 3.8 % Normal 0-10 [facility] Comment on above: Performed By: #### L 100.0100, L500.2500 ####[facility] [address] [place], [address] Neutrophils/100 WBC (Bld) 85.1 % High 47-70 [facility] Comment on above: Performed By: #### L 100.0100, L500.2500 ####[facility] [address] [place], [address] Nucleated RBC (Bld) [#/Vol] 0 10*3/uL Normal 0-5 [facility] Comment on above: Performed By: #### L 100.0100, L500.2500 ####[facility] [address] [place], [address] Platelet mean volume (Bld) [Entitic vol] 9.5 fL Normal 6.2-12.0 [facility] Comment on above: Performed By: #### L 100.0100, L500.2500 ####[facility] [address] [place], [address] Platelets (Bld) [#/Vol] 147 10*3/uL Low 150-450 [facility] Comment on above: Performed By: #### L 100.0100, L500.2500 ####[facility] [address] [place], [address] RBC (Bld) [#/Vol] 3.17 10*6/uL Low 4.2-5.4 [facility] Comment on above: Performed By: #### L 100.0100, L500.2500 ####[facility] [address] [place], [address] RDW SD 59.1 fl High 35.1-43.9 [facility] Comment on above: Performed By: #### L 100.0100, L500.2500 ####[facility] [address] [place], [address] WBC (Bld) [#/Vol] 8.5 10*3/uL Normal 4.4-11.0 [facility] Comment on above: Performed By: #### L 100.0100, L500.2500 ####[facility] [address] [place], [address] L3410.9998on 08-08-2024 [facility] [place] . [facility] Comment on above: Order Comment: SERUM /[id number] C Result Comment: Test Ordered: [id number] Cystatin CCystatin C 2.88 [H ] mg/L CB Reference Range: 0.72-1.16Performed at: - [facility] [address] [id number] Director: Manjinder Babb PhD, Phone: [phone] Performed By: #### L 3410.9998 ####[facility] [address] [place], [address] Basic Metabolic Profile (BMP )on 08-07-2024 BUN/CRE 29.1 RATIO High 10-20 [facility] Comment on above: Performed By: #### L 100.0100, L500.2500 ####[facility] [address] [place], [address] Calcium [Mass/Vol] 7.5 mg/dL Low 7.6-11.0 [facility] Comment on above: Performed By: #### L 100.0100, L500.2500 ####[facility] [address] [place], [address] Chloride [Moles/Vol] 103 mmol/L Normal 98-108 [facility] Comment on above: Performed By: #### L 100.0100, L500.2500 ####[facility] [address] [place], [address] CO2 [Moles/Vol] 19.3 mmol/L Low 21.0-32.0 [facility] Comment on above: Performed By: #### L 100.0100, L500.2500 ####[facility] [address] [place], [address] Creatinine [Mass/Vol] 1.50 mg/dL High 0.70-1.20 [facility] Comment on above: Performed By: #### L 100.0100, L500.2500 ####[facility] [address] [place], [address] ECRCL 27.32 ml/min Low 50-250 [facility] Comment on above: Performed By: #### L 100.0100, L500.2500 ####[facility] [address] [place], [address] GAP 11 Normal 5-15 [facility] Comment on above: Performed By: #### L 100.0100, L500.2500 ####[facility] [address] [place], [address] GFR/1.73 sq M.predicted among non-blacks MDRD (S/P/Bld) [Vol rate/Area] 39 mL/min/{1.73_m2} Low >60 [facility] Comment on above: Result Comment: mL/m in/1.73m2 CKD-EPI Creatinine Equation (2020) Performed By: #### L 100.0100, L500.2500 ####[facility] [address] [place], [address] Glucose [Mass/Vol] 84 mg/dL Normal 70-99 [facility] Comment on above: Performed By: #### L 100.0100, L500.2500 ####[facility] [address] [place], [address] Potassium [Moles/Vol] 3.7 mmol/L Normal 3.3-5.1 [facility] Comment on above: Performed By: #### L 100.0100, L500.2500 ####[facility] [address] [place], [address] Sodium [Moles/Vol] 133 mmol/L Normal 133-145 [facility] Comment on above: Performed By: #### L 100.0100, L500.2500 ####[facility] [address] [place], [address] Urea nitrogen [Mass/Vol] 44 mg/dL High 4-19 [facility] Comment on above: Performed By: #### L 100.0100, L500.2500 ####[facility] [address] [place], [address] Bedside Glucoseon 08-07-2024 FINGERSTICK GLU 130 mg/dL High 74-106 [facility] Comment on above: Result Comment: LUIZA GEMENT OF PATIENT CARE PER NURSING PROTOCOL Performed By: #### L 501.080 ####[facility] [address] [place], [address] FINGERSTICK GLU 95 mg/dL Normal 74-106 [facility] Comment on above: Result Comment: LUIZA GEMENT OF PATIENT CARE PER NURSING PROTOCOL Performed By: #### L 501.080 ####[facility] [address] [place], [address] FINGERSTICK GLU 76 mg/dL Normal 74-106 [facility] Comment on above: Result Comment: LUIZA GEMENT OF PATIENT CARE PER NURSING PROTOCOL Performed By: #### L 501.080 ####[facility] [address] [place], [address] FINGERSTICK GLU 79 mg/dL Normal 74-106 [facility] Comment on above: Result Comment: LUIZA GEMENT OF PATIENT CARE PER NURSING PROTOCOL Performed By: #### L 501.080 ####[facility] [address] [place], [address] CBC W/Diff, Automatedon 07-27 Absolute Lymph 0.82 X10 3/uL Low 0.83-4.51 [facility] Comment on above: Performed By: #### L 100.0100, L500.2500 ####[facility] [address] [place], [address] Absolute Neut 9.6 X10 3/uL High 2.0-7.7 [facility] Comment on above: Performed By: #### L 100.0100, L500.2500 ####[facility] [address] [place], [address] Basophils/100 WBC (Bld) 0.5 % Normal 0-1 [facility] Comment on above: Performed By: #### L 100.0100, L500.2500 ####[facility] [address] [place], [address] Eosinophils/100 WBC (Bld) 1.3 % Normal 0-5 [facility] Comment on above: Performed By: #### L 100.0100, L500.2500 ####[facility] [address] [place], [address] Erythrocyte distribution width (RBC) [Ratio] 18.6 % High 11.6-14.6 [facility] Comment on above: Performed By: #### L 100.0100, L500.2500 ####[facility] [address] [place], [address] Hematocrit (Bld) [Volume fraction] 29.4 % Low 37-47 [facility] Comment on above: Performed By: #### L 100.0100, L500.2500 ####[facility] [address] [place], [address] Hemoglobin (Bld) [Mass/Vol] 9.1 g/dL Low 12.0-15.0 [facility] Comment on above: Performed By: #### L 100.0100, L500.2500 ####[facility] [address] [place], [address] IG% 2.100 High 0.0-0.9 [facility] Comment on above: Result Comment: IG% - Immature Granulocytes (promyelocytes, myelocytes andmetamyelocytes) > 1% indicates that a LEFT SHIFT is Present. Performed By: #### L 100.0100, L500.2500 ####[facility] [address] [place], [address] Lymphocytes/100 WBC (Bld) 7.3 % Low 19-41 [facility] Comment on above: Performed By: #### L 100.0100, L500.2500 ####[facility] [address] [place], [address] MCH (RBC) [Entitic mass] 27.1 pg Normal 27.0-32.0 [facility] Comment on above: Performed By: #### L 100.0100, L500.2500 ####[facility] [address] [place], [address] MCHC (RBC) [Mass/Vol] 31.0 g/dL Low 32-36 [facility] Comment on above: Performed By: #### L 100.0100, L500.2500 ####[facility] [address] [place], [address] MCV (RBC) [Entitic vol] 87.5 fL Normal 81-99 [facility] Comment on above: Performed By: #### L 100.0100, L500.2500 ####[facility] [address] [place], [address] Monocytes/100 WBC (Bld) 3.5 % Normal 0-10 [facility] Comment on above: Performed By: #### L 100.0100, L500.2500 ####[facility] [address] [place], [address] Neutrophils/100 WBC (Bld) 85.3 % High 47-70 [facility] Comment on above: Performed By: #### L 100.0100, L500.2500 ####[facility] [address] [place], [address] Nucleated RBC (Bld) [#/Vol] 0 10*3/uL Normal 0-5 [facility] Comment on above: Performed By: #### L 100.0100, L500.2500 ####[facility] [address] [place], [address] Platelet mean volume (Bld) [Entitic vol] 9.8 fL Normal 6.2-12.0 [facility] Comment on above: Performed By: #### L 100.0100, L500.2500 ####[facility] [address] [place], [address] Platelets (Bld) [#/Vol] 163 10*3/uL Normal 150-450 [facility] Comment on above: Performed By: #### L 100.0100, L500.2500 ####[facility] [address] [place], [address] RBC (Bld) [#/Vol] 3.36 10*6/uL Low 4.2-5.4 [facility] Comment on above: Performed By: #### L 100.0100, L500.2500 ####[facility] [address] [place], [address] RDW SD 57.8 fl High 35.1-43.9 [facility] Comment on above: Performed By: #### L 100.0100, L500.2500 ####[facility] [address] [place], [address] WBC (Bld) [#/Vol] 11.2 10*3/uL High 4.4-11.0 [facility] Comment on above: Performed By: #### L 100.0100, L500.2500 ####[facility] [address] [place], [address] CDIFF (PCR)on 08-07-2024 CDIFF Normal [facility] Comment on above: Performed By: #### M 100.6796, M100.6795 ####[facility] [address] [place], [address] Clostridium Diff Toxin/Agon 08-07-2024 CDIFF (EIA) Normal [facility] Comment on above: Performed By: #### M 100.6796, M100.6795 ####[facility] [address] [place], [address] Clostridium difficile detect ion by polymerase chain reactionOrdered By: Judd Galvin on 08-07-2024 C. difficile DNA MOISES+probe Ql (Unsp spec) [facility] Glucoseon 08-07-2024 Glucose [Mass/Vol] 127 mg/dL High 70-99 [facility] Comment on above: Order Comment: Comme nts: hypoglycemia Performed By: #### L 501.0100 ####[facility] [address] [place], [address] Stool Clostridium difficile detectionOrdered By: Judd Galvin on 08-07-2024 C. difficile Ql (Stl) [facility] Abdomen/Pelvis WITH Contrast on 08-06-2024 Abdomen/Pelvis WITH Contrast Normal [facility] Basic Metabolic Profile (BMP )on 08-06-2024 BUN/CRE 29.8 RATIO High 10-20 [facility] Comment on above: Performed By: #### L 100.0100, L500.2500 ####[facility] [address] [place], [address] Calcium [Mass/Vol] 7.5 mg/dL Low 7.6-11.0 [facility] Comment on above: Performed By: #### L 100.0100, L500.2500 ####[facility] [address] [place], [address] Chloride [Moles/Vol] 102 mmol/L Normal 98-108 [facility] Comment on above: Performed By: #### L 100.0100, L500.2500 ####[facility] [address] [place], [address] CO2 [Moles/Vol] 21.2 mmol/L Normal 21.0-32.0 [facility] Comment on above: Performed By: #### L 100.0100, L500.2500 ####[facility] [address] [place], [address] Creatinine [Mass/Vol] 1.27 mg/dL High 0.70-1.20 [facility] Comment on above: Performed By: #### L 100.0100, L500.2500 ####[facility] [address] [place], [address] ECRCL 32.27 ml/min Low 50-250 [facility] Comment on above: Performed By: #### L 100.0100, L500.2500 ####[facility] [address] [place], [address] GAP 10 Normal 5-15 [facility] Comment on above: Performed By: #### L 100.0100, L500.2500 ####[facility] [address] [place], [address] GFR/1.73 sq M.predicted among non-blacks MDRD (S/P/Bld) [Vol rate/Area] 48 mL/min/{1.73_m2} Low >60 [facility] Comment on above: Result Comment: mL/m in/1.73m2 CKD-EPI Creatinine Equation (2020) Performed By: #### L 100.0100, L500.2500 ####[facility] [address] [place], [address] Glucose [Mass/Vol] 94 mg/dL Normal 70-99 [facility] Comment on above: Performed By: #### L 100.0100, L500.2500 ####[facility] [address] [place], [address] Potassium [Moles/Vol] 3.7 mmol/L Normal 3.3-5.1 [facility] Comment on above: Performed By: #### L 100.0100, L500.2500 ####[facility] [address] [place], [address] Sodium [Moles/Vol] 133 mmol/L Normal 133-145 [facility] Comment on above: Performed By: #### L 100.0100, L500.2500 ####[facility] [address] [place], [address] Urea nitrogen [Mass/Vol] 38 mg/dL High 4-19 [facility] Comment on above: Performed By: #### L 100.0100, L500.2500 ####[facility] [address] [place], [address] BUN Normal -19 [facility] Comment on above: Result Comment: Canc elled via OM: Order cancelled - Patient discharged Performed By: #### L 100.0100, L500.2500 ####[facility] [address] [place], [address] BUN/CRE Normal 10-20 [facility] Comment on above: Result Comment: Canc elled via OM: Order cancelled - Patient discharged Performed By: #### L 100.0100, L500.2500 ####[facility] [address] [place], [address] Calcium Normal 7.6-11.0 [facility] Comment on above: Result Comment: Canc elled via OM: Order cancelled - Patient discharged Performed By: #### L 100.0100, L500.2500 ####[facility] [address] [place], [address] CL Normal 98-107 [facility] Comment on above: Result Comment: Canc elled via OM: Order cancelled - Patient discharged Performed By: #### L 100.0100, L500.2500 ####[facility] [address] [place], [address] CO2 Normal 21.0-32.0 [facility] Comment on above: Result Comment: Canc elled via OM: Order cancelled - Patient discharged Performed By: #### L 100.0100, L500.2500 ####[facility] [address] [place], [address] CREAT,SERUM Normal 0.70-1.20 [facility] Comment on above: Result Comment: Canc elled via OM: Order cancelled - Patient discharged Performed By: #### L 100.0100, L500.2500 ####[facility] [address] [place], [address] eGFR Normal >60 [facility] Comment on above: Result Comment: Canc elled via OM: Order cancelled - Patient discharged Performed By: #### L 100.0100, L500.2500 ####[facility] [address] [place], [address] GAP Normal 5-15 [facility] Comment on above: Result Comment: Canc elled via OM: Order cancelled - Patient discharged Performed By: #### L 100.0100, L500.2500 ####[facility] [address] [place], [address] GLU Normal 70-99 [facility] Comment on above: Result Comment: Canc elled via OM: Order cancelled - Patient discharged Performed By: #### L 100.0100, L500.2500 ####[facility] [address] [place], [address] Potassium Normal 3.5-5.1 [facility] Comment on above: Result Comment: Canc elled via OM: Order cancelled - Patient discharged Performed By: #### L 100.0100, L500.2500 ####[facility] [address] [place], [address] Basic Metabolic Profile (BMP) Normal 136-145 [facility] Comment on above: Result Comment: Canc elled via OM: Order cancelled - Patient discharged Performed By: #### L 100.0100, L500.2500 ####[facility] [address] [place], [address] Bedside Glucoseon 08-06-2024 FINGERSTICK GLU 108 mg/dL High 74-106 [facility] Comment on above: Result Comment: LUIZA GEMENT OF PATIENT CARE PER NURSING PROTOCOL Performed By: #### L 501.080 ####[facility] [address] [place], [address] FINGERSTICK GLU 77 mg/dL Normal 74-106 [facility] Comment on above: Result Comment: LUIZA GEMENT OF PATIENT CARE PER NURSING PROTOCOL Performed By: #### L 501.080 ####[facility] [address] [place], [address] FINGERSTICK GLU 73 mg/dL Low 74-106 [facility] Comment on above: Result Comment: LUIZA GEMENT OF PATIENT CARE PER NURSING PROTOCOL Performed By: #### L 501.080 ####[facility] [address] [place], [address] FINGERSTICK GLU 71 mg/dL Low 74-106 [facility] Comment on above: Result Comment: LUIZA GEMENT OF PATIENT CARE PER NURSING PROTOCOL Performed By: #### L 501.080 ####[facility] [address] [place], [address] FINGERSTICK GLU 93 mg/dL Normal 74-106 [facility] Comment on above: Result Comment: LUIZA GEMENT OF PATIENT CARE PER NURSING PROTOCOL Performed By: #### L 501.080 ####[facility] [address] [place], [address] FINGERSTICK GLU 74 mg/dL Normal 74-106 [facility] Comment on above: Result Comment: LUIZA DIAZ OF PATIENT CARE PER NURSING PROTOCOL Performed By: #### L 501.080 ####[facility] [address] [place], [address] CBC W/Diff, Automatedon 03- Absolute Neut Normal 2.0-7.7 [facility] Comment on above: Result Comment: Canc elled via OM: Order cancelled - Patient discharged Performed By: #### L 100.0100, L500.2500 ####[facility] [address] [place], [address] HCT Normal 37-47 [facility] Comment on above: Result Comment: Canc elled via OM: Order cancelled - Patient discharged Performed By: #### L 100.0100, L500.2500 ####[facility] [address] [place], [address] HGB Normal 12.0-15.0 [facility] Comment on above: Result Comment: Canc elled via OM: Order cancelled - Patient discharged Performed By: #### L 100.0100, L500.2500 ####[facility] [address] [place], [address] MCH Normal 27.0-32.0 [facility] Comment on above: Result Comment: Canc elled via OM: Order cancelled - Patient discharged Performed By: #### L 100.0100, L500.2500 ####[facility] [address] [place], [address] MCHC Normal 32-36 [facility] Comment on above: Result Comment: Canc elled via OM: Order cancelled - Patient discharged Performed By: #### L 100.0100, L500.2500 ####[facility] [address] [place], [address] MCV Normal 81-99 [facility] Comment on above: Result Comment: Canc elled via OM: Order cancelled - Patient discharged Performed By: #### L 100.0100, L500.2500 ####[facility] [address] [place], [address] NEUT% Normal 47-70 [facility] Comment on above: Result Comment: Canc elled via OM: Order cancelled - Patient discharged Performed By: #### L 100.0100, L500.2500 ####[facility] [address] [place], [address] PLT Normal 150-450 [facility] Comment on above: Result Comment: Canc elled via OM: Order cancelled - Patient discharged Performed By: #### L 100.0100, L500.2500 ####[facility] [address] [place], [address] RBC Normal 4.2-5.4 [facility] Comment on above: Result Comment: Canc elled via OM: Order cancelled - Patient discharged Performed By: #### L 100.0100, L500.2500 ####[facility] [address] [place], [address] RDW CV Normal 11.6-14.6 [facility] Comment on above: Result Comment: Canc elled via OM: Order cancelled - Patient discharged Performed By: #### L 100.0100, L500.2500 ####[facility] [address] [place], [address] RDW SD Normal 35.1-43.9 [facility] Comment on above: Result Comment: Canc elled via OM: Order cancelled - Patient discharged Performed By: #### L 100.0100, L500.2500 ####[facility] [address] [place], [address] WBC Normal 4.4-11.0 [facility] Comment on above: Result Comment: Canc elled via OM: Order cancelled - Patient discharged Performed By: #### L 100.0100, L500.2500 ####[facility] [address] [place], [address] Absolute Lymph 1.00 X10 3/uL Normal 0.83-4.51 [facility] Comment on above: Performed By: #### L 100.0100, L500.2500 ####[facility] [address] [place], [address] Absolute Neut 6.5 X10 3/uL Normal 2.0-7.7 [facility] Comment on above: Performed By: #### L 100.0100, L500.2500 ####[facility] [address] [place], [address] Basophils/100 WBC (Bld) 0.9 % Normal 0-1 [facility] Comment on above: Performed By: #### L 100.0100, L500.2500 ####[facility] [place] [address] [place], [address] Eosinophils/100 WBC (Bld) 1.5 % Normal 0-5 [facility] Comment on above: Performed By: #### L 100.0100, L500.2500 ####[facility] [address] [place], [address] Erythrocyte distribution width (RBC) [Ratio] 17.7 % High 11.6-14.6 [facility] Comment on above: Performed By: #### L 100.0100, L500.2500 ####[facility] [address] [place], [address] Hematocrit (Bld) [Volume fraction] 26.8 % Low 37-47 [facility] Comment on above: Performed By: #### L 100.0100, L500.2500 ####[facility] [address] [place], [address] Hemoglobin (Bld) [Mass/Vol] 8.2 g/dL Low 12.0-15.0 [facility] Comment on above: Performed By: #### L 100.0100, L500.2500 ####[facility] [address] [place], [address] IG% 2.600 High 0.0-0.9 [facility] Comment on above: Result Comment: IG% - Immature Granulocytes (promyelocytes, myelocytes andmetamyelocytes) > 1% indicates that a LEFT SHIFT is Present. Performed By: #### L 100.0100, L500.2500 ####[facility] [address] [place], [address] Lymphocytes/100 WBC (Bld) 12.2 % Low 19-41 [facility] Comment on above: Performed By: #### L 100.0100, L500.2500 ####[facility] [address] [place], [address] MCH (RBC) [Entitic mass] 27.0 pg Normal 27.0-32.0 [facility] Comment on above: Performed By: #### L 100.0100, L500.2500 ####[facility] [address] [place], [address] MCHC (RBC) [Mass/Vol] 30.6 g/dL Low 32-36 [facility] Comment on above: Performed By: #### L 100.0100, L500.2500 ####[facility] [place] [address] [place], [address] MCV (RBC) [Entitic vol] 88.2 fL Normal 81-99 [facility] Comment on above: Performed By: #### L 100.0100, L500.2500 ####[facility] [address] [place], [address] Monocytes/100 WBC (Bld) 3.8 % Normal 0-10 [facility] Comment on above: Performed By: #### L 100.0100, L500.2500 ####[facility] [address] [place], [address] Neutrophils/100 WBC (Bld) 79.0 % High 47-70 [facility] Comment on above: Performed By: #### L 100.0100, L500.2500 ####[facility] [address] [place], [address] Nucleated RBC (Bld) [#/Vol] 0 10*3/uL Normal 0-5 [facility] Comment on above: Performed By: #### L 100.0100, L500.2500 ####[facility] [address] [place], [address] Platelet mean volume (Bld) [Entitic vol] 9.3 fL Normal 6.2-12.0 [facility] Comment on above: Performed By: #### L 100.0100, L500.2500 ####[facility] [address] [place], [address] Platelets (Bld) [#/Vol] 167 10*3/uL Normal 150-450 [facility] Comment on above: Performed By: #### L 100.0100, L500.2500 ####[facility] [address] [place], [address] RBC (Bld) [#/Vol] 3.04 10*6/uL Low 4.2-5.4 [facility] Comment on above: Performed By: #### L 100.0100, L500.2500 ####[facility] [address] [place], [address] RDW SD 56.7 fl High 35.1-43.9 [facility] Comment on above: Performed By: #### L 100.0100, L500.2500 ####[facility] [address] [place], [address] WBC (Bld) [#/Vol] 8.2 10*3/uL Normal 4.4-11.0 [facility] Comment on above: Performed By: #### L 100.0100, L500.2500 ####[facility] [place] [address] [place], [address] Basic Metabolic Profile (BMP )on 08-05-2024 BUN/CRE 32.7 RATIO High 10-20 [facility] Comment on above: Performed By: #### L 100.0100, L500.2500 ####[facility] [address] [place], [address] Calcium [Mass/Vol] 7.9 mg/dL Normal 7.6-11.0 [facility] Comment on above: Performed By: #### L 100.0100, L500.2500 ####[facility] [address] [place], [address] Chloride [Moles/Vol] 102 mmol/L Normal 98-108 [facility] Comment on above: Performed By: #### L 100.0100, L500.2500 ####[facility] [address] [place], [address] CO2 [Moles/Vol] 20.3 mmol/L Low 21.0-32.0 [facility] Comment on above: Performed By: #### L 100.0100, L500.2500 ####[facility] [address] [place], [address] Creatinine [Mass/Vol] 1.69 mg/dL High 0.70-1.20 [facility] Comment on above: Performed By: #### L 100.0100, L500.2500 ####[facility] [address] [place], [address] ECRCL 25.06 ml/min Low 50-250 [facility] Comment on above: Performed By: #### L 100.0100, L500.2500 ####[facility] [address] [place], [address] GAP 12 Normal 5-15 [facility] Comment on above: Performed By: #### L 100.0100, L500.2500 ####[facility] [address] [place], [address] GFR/1.73 sq M.predicted among non-blacks MDRD (S/P/Bld) [Vol rate/Area] 34 mL/min/{1.73_m2} Low >60 [facility] Comment on above: Result Comment: mL/m in/1.73m2 CKD-EPI Creatinine Equation (2020) Performed By: #### L 100.0100, L500.2500 ####[facility] [address] [place], [address] Glucose [Mass/Vol] 81 mg/dL Normal 70-99 [facility] Comment on above: Performed By: #### L 100.0100, L500.2500 ####[facility] [place] [address] [place], [address] Potassium [Moles/Vol] 5.0 mmol/L Normal 3.3-5.1 [facility] Comment on above: Performed By: #### L 100.0100, L500.2500 ####[facility] [address] [place], [address] Sodium [Moles/Vol] 135 mmol/L Normal 133-145 [facility] Comment on above: Performed By: #### L 100.0100, L500.2500 ####[facility] [address] [place], [address] Urea nitrogen [Mass/Vol] 55 mg/dL High 4-19 [facility] Comment on above: Performed By: #### L 100.0100, L500.2500 ####[facility] [address] [place], [address] BUN Normal 4-19 [facility] Comment on above: Result Comment: Canc elled via OM: Order cancelled - Patient discharged Performed By: #### L 500.2500, L100.0100 ####[facility] [address] [place], [address] BUN/CRE Normal 10-20 [facility] Comment on above: Result Comment: Canc elled via OM: Order cancelled - Patient discharged Performed By: #### L 500.2500, L100.0100 ####[facility] [address] [place], [address] Calcium Normal 7.6-11.0 [facility] Comment on above: Result Comment: Canc elled via OM: Order cancelled - Patient discharged Performed By: #### L 500.2500, L100.0100 ####[facility] [address] [place], [address] CL Normal 98-107 [facility] Comment on above: Result Comment: Canc elled via OM: Order cancelled - Patient discharged Performed By: #### L 500.2500, L100.0100 ####[facility] [address] [place], [address] CO2 Normal 21.0-32.0 [facility] Comment on above: Result Comment: Canc elled via OM: Order cancelled - Patient discharged Performed By: #### L 500.2500, L100.0100 ####[facility] [address] [place], [address] CREAT,SERUM Normal 0.70-1.20 [facility] Comment on above: Result Comment: Canc elled via OM: Order cancelled - Patient discharged Performed By: #### L 500.2500, L100.0100 ####[facility] [address] [place], [address] eGFR Normal >60 [facility] Comment on above: Result Comment: Canc elled via OM: Order cancelled - Patient discharged Performed By: #### L 500.2500, L100.0100 ####[facility] [address] [place], [address] GAP Normal 5-15 [facility] Comment on above: Result Comment: Canc elled via OM: Order cancelled - Patient discharged Performed By: #### L 500.2500, L100.0100 ####[facility] [address] [place], [address] GLU Normal 70-99 [facility] Comment on above: Result Comment: Canc elled via OM: Order cancelled - Patient discharged Performed By: #### L 500.2500, L100.0100 ####[facility] [address] [place], [address] Potassium Normal 3.5-5.1 [facility] Comment on above: Result Comment: Canc elled via OM: Order cancelled - Patient discharged Performed By: #### L 500.2500, L100.0100 ####[facility] [address] [place], [address] Basic Metabolic Profile (BMP) Normal 136-145 [facility] Comment on above: Result Comment: Canc elled via OM: Order cancelled - Patient discharged Performed By: #### L 500.2500, L100.0100 ####[facility] [address] [place], [address] Bedside Glucoseon 08-05-2024 FINGERSTICK GLU 74 mg/dL Normal 74-106 [facility] Comment on above: Result Comment: LUIZA DANNENT OF PATIENT CARE PER NURSING PROTOCOL Performed By: #### L 501.080 ####[facility] [address] [place], [address] FINGERSTICK GLU 97 mg/dL Normal 74-106 [facility] Comment on above: Result Comment: LUIZA GEMENT OF PATIENT CARE PER NURSING PROTOCOL Performed By: #### L 501.080 ####[facility] [address] [place], [address] FINGERSTICK GLU 102 mg/dL Normal 74-106 [facility] Comment on above: Result Comment: LUIZA GEMENT OF PATIENT CARE PER NURSING PROTOCOL Performed By: #### L 501.080 ####[facility] [address] [place], [address] FINGERSTICK GLU 59 mg/dL Low 74-106 [facility] Comment on above: Result Comment: LUIZA GEMENT OF PATIENT CARE PER NURSING PROTOCOL Performed By: #### L 501.080 ####[facility] [address] [place], [address] FINGERSTICK GLU 72 mg/dL Low 74-106 [facility] Comment on above: Result Comment: LUIZA GEMENT OF PATIENT CARE PER NURSING PROTOCOL Performed By: #### L 501.080 ####[facility] [address] [place], [address] FINGERSTICK GLU 96 mg/dL Normal 74-106 [facility] Comment on above: Result Comment: LUIZA GEMENT OF PATIENT CARE PER NURSING PROTOCOL Performed By: #### L 501.080 ####[facility] [address] [place], [address] FINGERSTICK GLU 66 mg/dL Low 74-106 [facility] Comment on above: Result Comment: LUIZA GEMENT OF PATIENT CARE PER NURSING PROTOCOL Performed By: #### L 501.080 ####[facility] [address] [place], [address] FINGERSTICK GLU 80 mg/dL Normal 74-106 [facility] Comment on above: Result Comment: LUIZA GEMENT OF PATIENT CARE PER NURSING PROTOCOL Performed By: #### L 501.080 ####[facility] [address] [place], [address] FINGERSTICK GLU 95 mg/dL Normal 74-106 [facility] Comment on above: Result Comment: LUIZA DIAZ OF PATIENT CARE PER NURSING PROTOCOL Performed By: #### L 501.080 ####[facility] [address] [place], [address] CBC W/Diff, Automatedon 07-27 0-2024 Absolute Lymph 1.25 X10 3/uL Normal 0.83-4.51 [facility] Comment on above: Performed By: #### L 100.0100, L500.2500 ####[facility] [address] [place], [address] Absolute Neut 12.9 X10 3/uL High 2.0-7.7 [facility] Comment on above: Performed By: #### L 100.0100, L500.2500 ####[facility] [address] [place], [address] Basophils/100 WBC (Bld) 0.3 % Normal 0-1 [facility] Comment on above: Performed By: #### L 100.0100, L500.2500 ####[facility] [address] [place], [address] Eosinophils/100 WBC (Bld) 0.3 % Normal 0-5 [facility] Comment on above: Performed By: #### L 100.0100, L500.2500 ####[facility] [address] [place], [address] Erythrocyte distribution width (RBC) [Ratio] 17.0 % High 11.6-14.6 [facility] Comment on above: Performed By: #### L 100.0100, L500.2500 ####[facility] [address] [place], [address] Hematocrit (Bld) [Volume fraction] 27.0 % Low 37-47 [facility] Comment on above: Performed By: #### L 100.0100, L500.2500 ####[facility] [address] [place], [address] Hemoglobin (Bld) [Mass/Vol] 8.6 g/dL Low 12.0-15.0 [facility] Comment on above: Performed By: #### L 100.0100, L500.2500 ####[facility] [address] [place], [address] IG% 3.900 High 0.0-0.9 [facility] Comment on above: Result Comment: IG% - Immature Granulocytes (promyelocytes, myelocytes andmetamyelocytes) > 1% indicates that a LEFT SHIFT is Present. Performed By: #### L 100.0100, L500.2500 ####[facility] [address] [place], [address] Lymphocytes/100 WBC (Bld) 8.2 % Low 19-41 [facility] Comment on above: Performed By: #### L 100.0100, L500.2500 ####[facility] [address] [place], [address] MCH (RBC) [Entitic mass] 27.3 pg Normal 27.0-32.0 [facility] Comment on above: Performed By: #### L 100.0100, L500.2500 ####[facility] [address] [place], [address] MCHC (RBC) [Mass/Vol] 31.9 g/dL Low 32-36 [facility] Comment on above: Performed By: #### L 100.0100, L500.2500 ####[facility] [address] [place], [address] MCV (RBC) [Entitic vol] 85.7 fL Normal 81-99 [facility] Comment on above: Performed By: #### L 100.0100, L500.2500 ####[facility] [address] [place], [address] Monocytes/100 WBC (Bld) 3.4 % Normal 0-10 [facility] Comment on above: Performed By: #### L 100.0100, L500.2500 ####[facility] [address] [place], [address] Neutrophils/100 WBC (Bld) 83.9 % High 47-70 [facility] Comment on above: Performed By: #### L 100.0100, L500.2500 ####[facility] [address] [place], [address] Nucleated RBC (Bld) [#/Vol] 0 10*3/uL Normal 0-5 [facility] Comment on above: Performed By: #### L 100.0100, L500.2500 ####[facility] [address] [place], [address] Platelet mean volume (Bld) [Entitic vol] 9.2 fL Normal 6.2-12.0 [facility] Comment on above: Performed By: #### L 100.0100, L500.2500 ####[facility] [address] [place], [address] Platelets (Bld) [#/Vol] 234 10*3/uL Normal 150-450 [facility] Comment on above: Performed By: #### L 100.0100, L500.2500 ####[facility] [address] [place], [address] RBC (Bld) [#/Vol] 3.15 10*6/uL Low 4.2-5.4 [facility] Comment on above: Performed By: #### L 100.0100, L500.2500 ####[facility] [address] [place], [address] RDW SD 52.5 fl High 35.1-43.9 [facility] Comment on above: Performed By: #### L 100.0100, L500.2500 ####[facility] [address] [place], [address] WBC (Bld) [#/Vol] 15.3 10*3/uL High 4.4-11.0 [facility] Comment on above: Performed By: #### L 100.0100, L500.2500 ####[facility] [address] [place], [address] Absolute Neut Normal 2.0-7.7 [facility] Comment on above: Result Comment: Canc elled via OM: Order cancelled - Patient discharged Performed By: #### L 500.2500, L100.0100 ####[facility] [address] [place], [address] HCT Normal 37-47 [facility] Comment on above: Result Comment: Canc elled via OM: Order cancelled - Patient discharged Performed By: #### L 500.2500, L100.0100 ####[facility] [address] [place], [address] HGB Normal 12.0-15.0 [facility] Comment on above: Result Comment: Canc elled via OM: Order cancelled - Patient discharged Performed By: #### L 500.2500, L100.0100 ####[facility] [address] [place], [address] MCH Normal 27.0-32.0 [facility] Comment on above: Result Comment: Canc elled via OM: Order cancelled - Patient discharged Performed By: #### L 500.2500, L100.0100 ####[facility] [address] [place], [address] MCHC Normal 32-36 [facility] Comment on above: Result Comment: Canc elled via OM: Order cancelled - Patient discharged Performed By: #### L 500.2500, L100.0100 ####[facility] [address] [place], [address] MCV Normal 81-99 [facility] Comment on above: Result Comment: Canc elled via OM: Order cancelled - Patient discharged Performed By: #### L 500.2500, L100.0100 ####[facility] [address] [place], [address] NEUT% Normal 47-70 [facility] Comment on above: Result Comment: Canc elled via OM: Order cancelled - Patient discharged Performed By: #### L 500.2500, L100.0100 ####[facility] [address] [place], [address] PLT Normal 150-450 [facility] Comment on above: Result Comment: Canc elled via OM: Order cancelled - Patient discharged Performed By: #### L 500.2500, L100.0100 ####[facility] [address] [place], [address] RBC Normal 4.2-5.4 [facility] Comment on above: Result Comment: Canc elled via OM: Order cancelled - Patient discharged Performed By: #### L 500.2500, L100.0100 ####[facility] [address] [place], [address] RDW CV Normal 11.6-14.6 [facility] Comment on above: Result Comment: Canc elled via OM: Order cancelled - Patient discharged Performed By: #### L 500.2500, L100.0100 ####[facility] [address] [place], [address] RDW SD Normal 35.1-43.9 [facility] Comment on above: Result Comment: Canc elled via OM: Order cancelled - Patient discharged Performed By: #### L 500.2500, L100.0100 ####[facility] [address] [place], [address] WBC Normal 4.4-11.0 [facility] Comment on above: Result Comment: Canc elled via OM: Order cancelled - Patient discharged Performed By: #### L 500.2500, L100.0100 ####[facility] [address] [place], [address] ALP [Catalytic activity/Vol] Ordered By: [facility] on 08-04-2024 Serum or plasma alkaline phosphatase measurement 56 U/L 35-104 [facility] ALT [Catalytic activity/Vol] Ordered By: [facility] on 08-04-2024 Serum or plasma alanine aminotransferase (ALT) measurement 7 U/L <35 [facility] Albumin [Mass/Vol]Ordered By : [facility] on 08-04-2024 Serum or plasma albumin measurement (mass/volume) 2.1 g/dL Low 3.4-4.8 [facility] Albumin/Globulin [Mass ratio ]Ordered By: [facility] on 08-04-2024 Serum or plasma albumin/globulin mass ratio 0.7 RATIO Low 0.9-2.4 [facility] [id number] 08-04-2024 ANTIBODY ID Normal [facility] Comment on above: Order Comment: CMV N EG? NNumber of units to transfuse: 1Is this product for anemia associated withhemoglobinopathy? NIs pt's Hgb is 10mmHg)? NIs this for PREOP anemia correction prior to anesthesia? NReason for Ordering Blood: ChronicIs there symptomatic anemia? NAre the blood/blood products to be transfused? YIs the patient having/had surgery? NWmari Roberts Result Comment: CFYA Performed By: #### B KENDRA GALINDO, [id number] ####[facility] [address] [place], [place], [address] BRCon 08-04-2024 RC Normal [facility] Comment on above: Result Comment: [id number] ON RC TRANSFUSED 08/04/24 1435 Performed By: #### B KENDRA GALINDO, [id number] ####[facility] [address] [place], [place], [id number] Basic Metabolic Profile (BMP )on 08-04-2024 BUN Normal 4-19 [facility] Comment on above: Result Comment: Canc elled via OM: Order cancelled - Patient discharged Performed By: #### L 100.0100, L500.2500 ####[facility] [address] [place], [address] Order Comment: UTO X 2 PHLEBS, NOTIFIED NURSE THERESA Result Comment: MORE RECENT SPECIMEN COLLECTED. BUN/CRE Normal 10-20 [facility] Comment on above: Result Comment: Canc elled via OM: Order cancelled - Patient discharged Performed By: #### L 100.0100, L500.2500 ####[facility] [address] [place], [address] Order Comment: UTO X 2 PHLEBS, NOTIFIED NURSE THERESA Result Comment: MORE RECENT SPECIMEN COLLECTED. Calcium Normal 7.6-11.0 [facility] Comment on above: Result Comment: Canc elled via OM: Order cancelled - Patient discharged Performed By: #### L 100.0100, L500.2500 ####[facility] [address] [place], [address] Order Comment: UTO X 2 PHLEBS, NOTIFIED NURSE THERESA Result Comment: MORE RECENT SPECIMEN COLLECTED. CL Normal 98-108 [facility] Comment on above: Result Comment: Canc elled via OM: Order cancelled - Patient discharged Performed By: #### L 100.0100, L500.2500 ####[facility] [address] [place], [address] Order Comment: UTO X 2 PHLEBS, NOTIFIED NURSE THERESA Result Comment: MORE RECENT SPECIMEN COLLECTED. CO2 Normal 21.0-32.0 [facility] Comment on above: Result Comment: Canc elled via OM: Order cancelled - Patient discharged Performed By: #### L 100.0100, L500.2500 ####[facility] [address] [place], [place], [id number] Order Comment: UTO X 2 PHLEBS, NOTIFIED NURSE THERESA Result Comment: MORE RECENT SPECIMEN COLLECTED. CREAT,SERUM Normal 0.70-1.20 [facility] Comment on above: Result Comment: Canc elled via OM: Order cancelled - Patient discharged Performed By: #### L 100.0100, L500.2500 ####[facility] [address] [place], [address] Order Comment: UTO X 2 PHLEBS, NOTIFIED NURSE THERESA Result Comment: MORE RECENT SPECIMEN COLLECTED. eGFR Normal >60 [facility] Comment on above: Result Comment: Canc elled via OM: Order cancelled - Patient discharged Performed By: #### L 100.0100, L500.2500 ####[facility] [address] [place], [address] Order Comment: UTO X 2 PHLEBS, NOTIFIED NURSE THERESA Result Comment: MORE RECENT SPECIMEN COLLECTED. GAP Normal 5-15 [facility] Comment on above: Result Comment: Canc elled via OM: Order cancelled - Patient discharged Performed By: #### L 100.0100, L500.2500 ####[facility] [address] [place], [address] Order Comment: UTO X 2 PHLEBS, NOTIFIED NURSE THERESA Result Comment: MORE RECENT SPECIMEN COLLECTED. GLU Normal 70-99 [facility] Comment on above: Result Comment: Canc elled via OM: Order cancelled - Patient discharged Performed By: #### L 100.0100, L500.2500 ####[facility] [address] [place], [address] Order Comment: UTO X 2 PHLEBS, NOTIFIED NURSE THERESA Result Comment: MORE RECENT SPECIMEN COLLECTED. Potassium Normal 3.3-5.1 [facility] Comment on above: Result Comment: Canc elled via OM: Order cancelled - Patient discharged Performed By: #### L 100.0100, L500.2500 ####[facility] [address] [place], [address] Order Comment: UTO X 2 PHLEBS, NOTIFIED NURSE THERESA Result Comment: MORE RECENT SPECIMEN COLLECTED. Basic Metabolic Profile (BMP) Normal 133-145 [facility] Comment on above: Result Comment: Canc elled via OM: Order cancelled - Patient discharged Performed By: #### L 100.0100, L500.2500 ####[facility] [address] [place], [address] Order Comment: UTO X 2 PHLEBS, NOTIFIED NURSE THERESA Result Comment: MORE RECENT SPECIMEN COLLECTED. Bedside Glucoseon 08-04-2024 FINGERSTICK GLU 76 mg/dL Normal 74-106 [facility] Comment on above: Result Comment: LUIZA GEMENT OF PATIENT CARE PER NURSING PROTOCOL Performed By: #### L 501.080 ####[facility] [address] [place], [address] FINGERSTICK GLU 75 mg/dL Normal 74-106 [facility] Comment on above: Result Comment: LUIZA GEMENT OF PATIENT CARE PER NURSING PROTOCOL Performed By: #### L 501.080 ####[facility] [address] [place], [address] FINGERSTICK GLU < 10 Invalid Interpretation Code 74-106 [facility] Comment on above: Result Comment: Dr George mathis FollowedMANAGEMENT OF PATIENT CARE PER NURSING PROTOCOL Performed By: #### L 501.080 ####[facility] [address] [place], [address] FINGERSTICK GLU 14 mg/dL Invalid Interpretation Code 74-106 [facility] Comment on above: Result Comment: LUIZA GEMENT OF PATIENT CARE PER NURSING PROTOCOL Performed By: #### L 501.080 ####[facility] [address] [place], [address] FINGERSTICK GLU < 10 Invalid Interpretation Code 74-106 [facility] Comment on above: Result Comment: Dr George mathis FollowedMANAGEMENT OF PATIENT CARE PER NURSING PROTOCOL Performed By: #### L 501.080 ####[facility] [address] [place], [place], [address] FINGERSTICK GLU 16 mg/dL Invalid Interpretation Code 63-792 [facility] Comment on above: Result Comment: LUIZA DIAZ OF PATIENT CARE PER NURSING PROTOCOL Performed By: #### L 501.080 ####[facility] [address] [place], [place], [id number] Bilirubin, totalOrdered By: White on 08-04-2024 Bilirubin [Mass/Vol] 0.23 mg/dL 0.00-1.30 [facility] Bilirubin, total 0.23 mg/dL 0.00-1.30 [facility] Blood band neutrophil count as percentage of total leukocytesOrdered By: White on 08-04-2024 Band form neutrophils/100 WBC (Bld) 1 % 0-5 [facility] Blood band neutrophil count as percentage of total leukocytes 1 % 0-5 [facility] Blood eosinophils/100 leukoc ytesOrdered By: White on 08-04-2024 Eosinophils/100 WBC (Bld) 1 % 0-5 [facility] Blood lymphocytes/100 leukoc ytesOrdered By: White on 08-04-2024 Lymphocytes/100 WBC (Bld) 13 % Low 19-41 [facility] Blood metamyelocytes/100 massiel kocytesOrdered By: White on 08-04-2024 Metamyelocytes/100 WBC (Bld) 2 % High 0-1 [facility] Blood metamyelocytes/100 leukocytes 2 % 0-10 [facility] Blood monocytes/100 leukocyt esOrdered By: White on 08-04-2024 Monocytes/100 WBC (Bld) 2 % 0-10 [facility] Blood segmented neutrophils/ 100 leukocytesOrdered By: White on 08-04-2024 Segmented neutrophils/100 WBC (Bld) 81 % High 47-70 [facility] CBC W/Diff, Automatedon Absolute Lymph 1.24 X10 3/uL Normal 0.83-4.51 [facility] Comment on above: Performed By: #### L 100.0100 ####[facility] [address] [place], [address] Absolute Neut 7.9 X10 3/uL High 2.0-7.7 [facility] Comment on above: Performed By: #### L 100.0100 ####[facility] [address] [place], [address] PATH REV May foll Normal [facility] Comment on above: Performed By: #### L 100.0100 ####[facility] [address] [place], [address] Absolute Neut Normal 2.0-7.7 [facility] Comment on above: Result Comment: Canc elled via OM: Order cancelled - Patient discharged Performed By: #### L 100.0100, L500.2500 ####[facility] [address] [place], [address] Order Comment: UTO X 2 PHLEBS, NOTIFIED NURSE THERESA Result Comment: DUPL ICATE HCT Normal 37-47 [facility] Comment on above: Result Comment: Canc elled via OM: Order cancelled - Patient discharged Performed By: #### L 100.0100, L500.2500 ####[facility] [address] [place], [address] Order Comment: UTO X 2 PHLEBS, NOTIFIED NURSE THERESA Result Comment: DUPL ICATE HGB Normal 12.0-15.0 [facility] Comment on above: Result Comment: Canc elled via OM: Order cancelled - Patient discharged Performed By: #### L 100.0100, L500.2500 ####[facility] [address] [place], [address] Order Comment: UTO X 2 PHLEBS, NOTIFIED NURSE THERESA Result Comment: DUPL ICATE MCH Normal 27.0-32.0 [facility] Comment on above: Result Comment: Canc elled via OM: Order cancelled - Patient discharged Performed By: #### L 100.0100, L500.2500 ####[facility] [address] [facility] [address] Order Comment: UTO X 2 PHLEBS, NOTIFIED NURSE THERESA Result Comment: DUPL ICATE MCHC Normal 32-36 [facility] Comment on above: Result Comment: Canc elled via OM: Order cancelled - Patient discharged Performed By: #### L 100.0100, L500.2500 ####[facility] [address] [facility] [address] Order Comment: UTO X 2 PHLEBS, NOTIFIED NURSE THERESA Result Comment: DUPL ICATE MCV Normal 81-99 [facility] Comment on above: Result Comment: Canc elled via OM: Order cancelled - Patient discharged Performed By: #### L 100.0100, L500.2500 ####[facility] [address] [place] [address] Order Comment: UTO X 2 PHLEBS, NOTIFIED NURSE THERESA Result Comment: DUPL ICATE NEUT% Normal 47-70 [facility] Comment on above: Result Comment: Canc elled via OM: Order cancelled - Patient discharged Performed By: #### L 100.0100, L500.2500 ####[facility] [address] [facility] [address] Order Comment: UTO X 2 PHLEBS, NOTIFIED NURSE THERESA Result Comment: DUPL ICATE PLT Normal 150-450 [facility] Comment on above: Result Comment: Canc elled via OM: Order cancelled - Patient discharged Performed By: #### L 100.0100, L500.2500 ####[facility] [address] [facility] [address] Order Comment: UTO X 2 PHLEBS, NOTIFIED NURSE THERESA Result Comment: DUPL ICATE RBC Normal 4.2-5.4 [facility] Comment on above: Result Comment: Canc elled via OM: Order cancelled - Patient discharged Performed By: #### L 100.0100, L500.2500 ####[facility] [address] [place], [place], [address] Order Comment: UTO X 2 PHLEBS, NOTIFIED NURSE THERESA Result Comment: DUPL ICATE RDW CV Normal 11.6-14.6 [facility] Comment on above: Result Comment: Canc elled via OM: Order cancelled - Patient discharged Performed By: #### L 100.0100, L500.2500 ####[facility] [address] [place], [place], [address] Order Comment: UTO X 2 PHLEBS, NOTIFIED NURSE THERESA Result Comment: DUPL ICATE RDW SD Normal 35.1-43.9 [facility] Comment on above: Result Comment: Canc elled via OM: Order cancelled - Patient discharged Performed By: #### L 100.0100, L500.2500 ####[facility] [address] [place], [place], [address] Order Comment: UTO X 2 PHLEBS, NOTIFIED NURSE THREESA Result Comment: DUPL ICATE WBC Normal 4.4-11.0 [facility] Comment on above: Result Comment: Canc elled via OM: Order cancelled - Patient discharged Performed By: #### L 100.0100, L500.2500 ####[facility] [address] [place], [place], [address] Order Comment: UTO X 2 PHLEBS, NOTIFIED NURSE THERESA Result Comment: DUPL ICATE Cells counted Molgen (Bld/Ti ss) [#]Ordered By: Ivone Buckner on 08-04-2024 Total cell count 100 MANUAL DIFF [facility] Comprehensive Metabolic Prof ilon 08-04-2024 Albumin [Mass/Vol] 2.1 g/dL Low 3.4-4.8 [facility] Comment on above: Performed By: #### L 500.4050 ####[facility] [address] [place], [address] Albumin/Globulin [Mass ratio] 0.7 {ratio} Low 0.9-2.4 [facility] Comment on above: Performed By: #### L 500.4050 ####[facility] [address] [place], [address] ALK PHOS 56 U/L Normal 35-104 [facility] Comment on above: Performed By: #### L 500.4050 ####[facility] [address] [place], [address] ALT [Catalytic activity/Vol] 7 U/L Normal <=34 [facility] Comment on above: Performed By: #### L 500.4050 ####[facility] [address] [place], [address] AST [Catalytic activity/Vol] 25 U/L Normal <=31 [facility] Comment on above: Performed By: #### L 500.4050 ####[facility] [address] [place], [address] Bilirubin [Mass/Vol] 0.23 mg/dL Normal 0.00-1.30 [facility] Comment on above: Performed By: #### L 500.4050 ####[facility] [address] [place], [address] BUN/CRE 39.2 RATIO High 10-20 [facility] Comment on above: Performed By: #### L 500.4050 ####[facility] [address] [place], [address] Calcium [Mass/Vol] 8.0 mg/dL Normal 7.6-11.0 [facility] Comment on above: Performed By: #### L 500.4050 ####[facility] [address] [place], [address] Chloride [Moles/Vol] 101 mmol/L Normal 98-108 [facility] Comment on above: Performed By: #### L 500.4050 ####[facility] [address] [place], [address] CO2 [Moles/Vol] 22.9 mmol/L Normal 21.0-32.0 [facility] Comment on above: Performed By: #### L 500.4050 ####[facility] [address] [place], [address] Creatinine [Mass/Vol] 1.41 mg/dL High 0.70-1.20 [facility] Comment on above: Performed By: #### L 500.4050 ####[facility] [address] [place], [address] ECRCL 30.04 ml/min Low 50-250 [facility] Comment on above: Performed By: #### L 500.4050 ####[facility] [address] [place], [address] GAP 9 Normal 5-15 [facility] Comment on above: Performed By: #### L 500.4050 ####[facility] [address] [place], [address] GFR/1.73 sq M.predicted among non-blacks MDRD (S/P/Bld) [Vol rate/Area] 42 mL/min/{1.73_m2} Low >60 [facility] Comment on above: Result Comment: mL/m in/1.73m2 CKD-EPI Creatinine Equation (2020) Performed By: #### L 500.4050 ####[facility] [address] [place], [address] Globulin (S) [Mass/Vol] 3.1 g/dL Normal 2.2-4.2 [facility] Comment on above: Performed By: #### L 500.4050 ####[facility] [address] [place], [address] Glucose [Mass/Vol] 153 mg/dL High 70-99 [facility] Comment on above: Performed By: #### L 500.4050 ####[facility] [address] [place], [address] Potassium [Moles/Vol] 4.7 mmol/L Normal 3.3-5.1 [facility] Comment on above: Performed By: #### L 500.4050 ####[facility] [address] [place], [address] Sodium [Moles/Vol] 134 mmol/L Normal 133-145 [facility] Comment on above: Performed By: #### L 500.4050 ####[facility] [address] [place], [address] T PROT 5.2 g/dL Low 5.9-8.4 [facility] Comment on above: Performed By: #### L 500.4050 ####[facility] [address] [place], [address] Urea nitrogen [Mass/Vol] 55 mg/dL High 4-19 [facility] Comment on above: Performed By: #### L 500.4050 ####[facility] [address] [place], [address] Erythrocyte morphology asses smentOrdered By: Ivone White on 08-04-2024 RBC morphology finding Nom (Bld) N CYTIC NORMAL NORM C&C [facility] HH, Hemoglobin AND Hematocri ton 08-04-2024 Hematocrit (Bld) [Volume fraction] 27.1 % Low 37-47 [facility] Comment on above: Order Comment: Comme nts: 1-2 hours after PRBC completion. Performed By: #### L 100.0600 ####[facility] [address] [place], [address] Hemoglobin (Bld) [Mass/Vol] 8.6 g/dL Low 12.0-15.0 [facility] Comment on above: Order Comment: Comme nts: 1-2 hours after PRBC completion. Performed By: #### L 100.0600 ####[facility] [address] [place], [place], [address] Hypochromatic red blood cell detectionOrdered By: Ivone Buckner on 08-04-2024 Hypochromia Ql (Bld) 1+ [facility] Hypochromia Ql (Bld)Ordered By: Ivone uDdley on 08-04-2024 Hypochromatic red blood cell detection 1+ [facility] L499.0042on 08-04-2024 Trop T High Sen 146 ng/L Invalid Interpretation Code <=14 [facility] Comment on above: Result Comment: Crit ical Result(s) Called to Ginette MEJIA ([facility]): John Paul.Stoner:??Results read back by same. Performed By: #### L 499.0042 ####[facility] [address] [facility] [address] [place], [place], [address] L501.4021on 08-04-2024 Trop T High Sen 152 ng/L Invalid Interpretation Code <=14 [facility] Comment on above: Result Comment: Crit ical Result(s) Called at:0709 by: WALTER KENNEDY TO KIN??Results read back by same. Performed By: #### L 501.4021 ####[facility] [address] [facility] [place], [place], [address] Lymphocytes/100 WBC (Bld)Ord ered By: Ivone Dudley on 08-04-2024 Blood lymphocytes/100 leukocytes 13 % Low 19-41 [facility] No Panel InformationOrdered By: [facility] on 08-04-2024 152 ng/L High <14 [facility] 25 U/L <32 [facility] Pathologist review Horace (Unsp spec) [Interp]Ordered By: Ivone Buckner on 08-04-2024 Review by pathologist Karen paul [facility] Platelet estimateOrdered By: Ivone Dudley on 08-04-2024 Platelets LM Ql (Bld) ADEQUATE ADEQ [facility] Platelets LM Ql (Bld)Ordered By: Ivone Buckner on 08-04-2024 Platelet estimate ADEQUATE ADEQ [facility] RBC morphology finding Nom ( Bld)Ordered By: Ivone Buckner on 08-04-2024 Erythrocyte morphology assessment N CYTIC NORMAL NORM C&C [facility] Review by pathologistOrdered By: Ivone Buckner on 08-04-2024 Pathologist review Horace (Unsp spec) [Interp] May foll [facility] Segmented neutrophils/100 WB C (Bld)Ordered By: Ivone Buckner on 08-04-2024 Blood segmented neutrophils/100 leukocytes 81 % High 47-70 [facility] Serum globulin measurementOr dered By: Ivone Buckner on 08-04-2024 Globulin (S) [Mass/Vol] 3.1 g/dL 2.2-4.2 [facility] Serum globulin measurement 3.1 g/dL 2.2-4.2 [facility] Serum or plasma alanine camargo otransferase (ALT) measurementOrdered By: Ivone Buckner on 08-04-2024 ALT [Catalytic activity/Vol] 7 U/L <35 [facility] Serum or plasma albumin megan urement (mass/volume)Ordered By: Ivone Buckner on 08-04-2024 Albumin [Mass/Vol] 2.1 g/dL Low 3.4-4.8 [facility] Serum or plasma albumin/glob ulin mass ratioOrdered By: Ivone Buckner on 08-04-2024 Albumin/Globulin [Mass ratio] 0.7 {ratio} Low 0.9-2.4 [facility] Serum or plasma alkaline susan sphatase measurementOrdered By: Ivone Buckner on 08-04-2024 ALP [Catalytic activity/Vol] 56 U/L 35-104 [facility] Total cell countOrdered By: Ivone Buckner on 08-04-2024 Cells counted Molgen (Bld/Tiss) [#] 100 MANUAL DIFF [facility] Total proteinOrdered By: Aut umn Dudley on 08-04-2024 Protein [Mass/Vol] 5.2 g/dL Low 5.9-8.4 [facility] Total protein 5.2 g/dL Low 5.9-8.4 [facility] Troponin T.cardiac High sens itivity method [Mass/Vol]Ordered By: Ivone Buckner on 08-04-2024 Troponin T.cardiac [Mass/volume] in Serum or Plasma by High sensitivity method 146 ng/L High <14 [facility] Troponin T.cardiac [Mass/vol ume] in Serum or Plasma by High sensitivity methodOrdered By: Ivone Buckner on 08-04-2024 Troponin T.cardiac High sensitivity method [Mass/Vol] 146 ng/L High <14 [facility] Type AND Screenon 08-04-2024 ABO and Rh group Nom (Bld) Blood group O Rh(D) positive Normal [facility] Comment on above: Order Comment: CMV N EG? NNumber of units to transfuse: 1Is this product for anemia associated withhemoglobinopathy? NIs pt's Hgb is 10mmHg)? NIs this for PREOP anemia correction prior to anesthesia? NReason for Ordering Blood: ChronicIs there symptomatic anemia? NAre the blood/blood products to be transfused? YIs the patient having/had surgery? NWmari Roberts Performed By: #### B TS, BRC, [id number] ####[facility] [address] [place], [address] Basic Metabolic Profile (BMP )on 08-03-2024 BUN/CRE 31.7 RATIO High 10-20 [facility] Comment on above: Performed By: #### L 500.2500, L100.0100 ####[facility] [address] [place], [address] Calcium [Mass/Vol] 8.6 mg/dL Normal 7.6-11.0 [facility] Comment on above: Performed By: #### L 500.2500, L100.0100 ####[facility] [address] [place], [address] Chloride [Moles/Vol] 102 mmol/L Normal 98-108 [facility] Comment on above: Performed By: #### L 500.2500, L100.0100 ####[facility] [address] [place], [address] CO2 [Moles/Vol] 21.1 mmol/L Normal 21.0-32.0 [facility] Comment on above: Performed By: #### L 500.2500, L100.0100 ####[facility] [address] [place], [address] Creatinine [Mass/Vol] 1.24 mg/dL High 0.70-1.20 [facility] Comment on above: Performed By: #### L 500.2500, L100.0100 ####[facility] [address] [place], [address] ECRCL 34.16 ml/min Low 50-250 [facility] Comment on above: Performed By: #### L 500.2500, L100.0100 ####[facility] [address] [place], [address] GAP 13 Normal 5-15 [facility] Comment on above: Performed By: #### L 500.2500, L100.0100 ####[facility] [address] [place], [address] GFR/1.73 sq M.predicted among non-blacks MDRD (S/P/Bld) [Vol rate/Area] 49 mL/min/{1.73_m2} Low >60 [facility] Comment on above: Result Comment: mL/m in/1.73m2 CKD-EPI Creatinine Equation (2020) Performed By: #### L 500.2500, L100.0100 ####[facility] [address] [place], [address] Glucose [Mass/Vol] 65 mg/dL Low 70-99 [facility] Comment on above: Performed By: #### L 500.2500, L100.0100 ####[facility] [address] [place], [address] Potassium [Moles/Vol] 4.8 mmol/L Normal 3.3-5.1 [facility] Comment on above: Performed By: #### L 500.2500, L100.0100 ####[facility] [address] [place], [address] Sodium [Moles/Vol] 135 mmol/L Normal 133-145 [facility] Comment on above: Performed By: #### L 500.2500, L100.0100 ####[facility] [address] [place], [address] Urea nitrogen [Mass/Vol] 39 mg/dL High 4-19 [facility] Comment on above: Performed By: #### L 500.2500, L100.0100 ####[facility] [address] [place], [address] BUN Normal - [facility] Comment on above: Result Comment: Canc elled via OM: Order cancelled - Patient discharged Performed By: #### L 500.2500, L100.0100 ####[facility] [address] [place], [address] BUN/CRE Normal 10-20 [facility] Comment on above: Result Comment: Canc elled via OM: Order cancelled - Patient discharged Performed By: #### L 500.2500, L100.0100 ####[facility] [address] [place], [address] Calcium Normal 7.6-11.0 [facility] Comment on above: Result Comment: Canc elled via OM: Order cancelled - Patient discharged Performed By: #### L 500.2500, L100.0100 ####[facility] [address] [place], [address] CL Normal 98-107 [facility] Comment on above: Result Comment: Canc elled via OM: Order cancelled - Patient discharged Performed By: #### L 500.2500, L100.0100 ####[facility] [address] [place], [address] CO2 Normal 21.0-32.0 [facility] Comment on above: Result Comment: Canc elled via OM: Order cancelled - Patient discharged Performed By: #### L 500.2500, L100.0100 ####[facility] [address] [place], [address] CREAT,SERUM Normal 0.70-1.20 [facility] Comment on above: Result Comment: Canc elled via OM: Order cancelled - Patient discharged Performed By: #### L 500.2500, L100.0100 ####[facility] [address] [place], [address] eGFR Normal >60 [facility] Comment on above: Result Comment: Canc elled via OM: Order cancelled - Patient discharged Performed By: #### L 500.2500, L100.0100 ####[facility] [address] [place], [address] GAP Normal 5-15 [facility] Comment on above: Result Comment: Canc elled via OM: Order cancelled - Patient discharged Performed By: #### L 500.2500, L100.0100 ####[facility] [address] [place], [address] GLU Normal 70-99 [facility] Comment on above: Result Comment: Canc elled via OM: Order cancelled - Patient discharged Performed By: #### L 500.2500, L100.0100 ####[facility] [address] [place], [address] Potassium Normal 3.5-5.1 [facility] Comment on above: Result Comment: Canc elled via OM: Order cancelled - Patient discharged Performed By: #### L 500.2500, L100.0100 ####[facility] [address] [place], [address] Basic Metabolic Profile (BMP) Normal 136-145 [facility] Comment on above: Result Comment: Canc elled via OM: Order cancelled - Patient discharged Performed By: #### L 500.2500, L100.0100 ####[facility] [address] [place], [address] CBC W/Diff, Automatedon 03-0 8-5 Absolute Lymph 0.88 X10 3/uL Normal 0.83-4.51 [facility] Comment on above: Performed By: #### L 500.2500, L100.0100 ####[facility] [address] [place], [address] Absolute Neut 9.0 X10 3/uL High 2.0-7.7 [facility] Comment on above: Performed By: #### L 500.2500, L100.0100 ####[facility] [address] [place], [address] Basophils/100 WBC (Bld) 0.5 % Normal 0-1 [facility] Comment on above: Performed By: #### L 500.2500, L100.0100 ####[facility] [facility] [address] [place], [address] Eosinophils/100 WBC (Bld) 1.3 % Normal 0-5 [facility] Comment on above: Performed By: #### L 500.2500, L100.0100 ####[facility] [address] [place], [address] Erythrocyte distribution width (RBC) [Ratio] 17.3 % High 11.6-14.6 [facility] Comment on above: Performed By: #### L 500.2500, L100.0100 ####[facility] [address] [place], [address] Hematocrit (Bld) [Volume fraction] 27.9 % Low 37-47 [facility] Comment on above: Performed By: #### L 500.2500, L100.0100 ####[facility] [address] [place], [address] Hemoglobin (Bld) [Mass/Vol] 8.0 g/dL Low 12.0-15.0 [facility] Comment on above: Performed By: #### L 500.2500, L100.0100 ####[facility] [address] [place], [address] IG% 3.700 High 0.0-0.9 [facility] Comment on above: Result Comment: IG% - Immature Granulocytes (promyelocytes, myelocytes andmetamyelocytes) > 1% indicates that a LEFT SHIFT is Present. Performed By: #### L 500.2500, L100.0100 ####[facility] [address] [place], [address] Lymphocytes/100 WBC (Bld) 7.9 % Low 19-41 [facility] Comment on above: Performed By: #### L 500.2500, L100.0100 ####[facility] [address] [place], [address] MCH (RBC) [Entitic mass] 25.2 pg Low 27.0-32.0 [facility] Comment on above: Performed By: #### L 500.2500, L100.0100 ####[facility] [address] [place], [address] MCHC (RBC) [Mass/Vol] 28.7 g/dL Low 32-36 [facility] Comment on above: Performed By: #### L 500.2500, L100.0100 ####[facility] [address] [place], [address] MCV (RBC) [Entitic vol] 88.0 fL Normal 81-99 [facility] Comment on above: Performed By: #### L 500.2500, L100.0100 ####[facility] [address] [place], [address] Monocytes/100 WBC (Bld) 5.5 % Normal 0-10 [facility] Comment on above: Performed By: #### L 500.2500, L100.0100 ####[facility] [address] [place], [address] Neutrophils/100 WBC (Bld) 81.1 % High 47-70 [facility] Comment on above: Performed By: #### L 500.2500, L100.0100 ####[facility] [address] [place], [address] Nucleated RBC (Bld) [#/Vol] 0 10*3/uL Normal 0-5 [facility] Comment on above: Performed By: #### L 500.2500, L100.0100 ####[facility] [address] [place], [address] Platelet mean volume (Bld) [Entitic vol] 9.2 fL Normal 6.2-12.0 [facility] Comment on above: Performed By: #### L 500.2500, L100.0100 ####[facility] [address] [place], [address] Platelets (Bld) [#/Vol] 265 10*3/uL Normal 150-450 [facility] Comment on above: Performed By: #### L 500.2500, L100.0100 ####[facility] [address] [place], [address] RBC (Bld) [#/Vol] 3.17 10*6/uL Low 4.2-5.4 [facility] Comment on above: Performed By: #### L 500.2500, L100.0100 ####[facility] [address] [place], [address] RDW SD 55.2 fl High 35.1-43.9 [facility] Comment on above: Performed By: #### L 500.2500, L100.0100 ####[facility] [address] [place], [address] WBC (Bld) [#/Vol] 11.1 10*3/uL High 4.4-11.0 [facility] Comment on above: Performed By: #### L 500.2500, L100.0100 ####[facility] [address] [place], [address] Absolute Neut Normal 2.0-7.7 [facility] Comment on above: Result Comment: Canc elled via OM: Order cancelled - Patient discharged Performed By: #### L 500.2500, L100.0100 ####[facility] [address] [place], [address] HCT Normal 37-47 [facility] Comment on above: Result Comment: Canc elled via OM: Order cancelled - Patient discharged Performed By: #### L 500.2500, L100.0100 ####[facility] [address] [place], [address] HGB Normal 12.0-15.0 [facility] Comment on above: Result Comment: Canc elled via OM: Order cancelled - Patient discharged Performed By: #### L 500.2500, L100.0100 ####[facility] [address] [place], [address] MCH Normal 27.0-32.0 [facility] Comment on above: Result Comment: Canc elled via OM: Order cancelled - Patient discharged Performed By: #### L 500.2500, L100.0100 ####[facility] [address] [place], [address] MCHC Normal 32-36 [facility] Comment on above: Result Comment: Canc elled via OM: Order cancelled - Patient discharged Performed By: #### L 500.2500, L100.0100 ####[facility] [address] [place], [address] MCV Normal 81-99 [facility] Comment on above: Result Comment: Canc elled via OM: Order cancelled - Patient discharged Performed By: #### L 500.2500, L100.0100 ####[facility] [address] [place], [address] NEUT% Normal 47-70 [facility] Comment on above: Result Comment: Canc elled via OM: Order cancelled - Patient discharged Performed By: #### L 500.2500, L100.0100 ####[facility] [address] [place], [address] PLT Normal 150-450 [facility] Comment on above: Result Comment: Canc elled via OM: Order cancelled - Patient discharged Performed By: #### L 500.2500, L100.0100 ####[facility] [address] [place], [address] RBC Normal 4.2-5.4 [facility] Comment on above: Result Comment: Canc elled via OM: Order cancelled - Patient discharged Performed By: #### L 500.2500, L100.0100 ####[facility] [address] [place], [address] RDW CV Normal 11.6-14.6 [facility] Comment on above: Result Comment: Canc elled via OM: Order cancelled - Patient discharged Performed By: #### L 500.2500, L100.0100 ####[facility] [address] [place], [address] RDW SD Normal 35.1-43.9 [facility] Comment on above: Result Comment: Canc elled via OM: Order cancelled - Patient discharged Performed By: #### L 500.2500, L100.0100 ####[facility] [address] [place], [address] WBC Normal 4.4-11.0 [facility] Comment on above: Result Comment: Canc elled via OM: Order cancelled - Patient discharged Performed By: #### L 500.2500, L100.0100 ####[facility] [address] [place], [address] EGD Reporton 08-03-2024 EGD Report Normal [facility] MR/POSTOP.ANEon 08-03-2024 MR/POSTOP.ANE Normal [facility] MR/FBCSMSCA9xo 08-03-2024 MR/POSTOPAN2 Normal [facility] Basic Metabolic Profile (BMP )on 08-02-2024 BUN/CRE 33.3 RATIO High 10-20 [facility] Comment on above: Performed By: #### L 100.0500, L500.2500 ####[facility] [address] [place], [address] Calcium [Mass/Vol] 8.9 mg/dL Normal 7.6-11.0 [facility] Comment on above: Performed By: #### L 100.0500, L500.2500 ####[facility] [address] [place], [address] Chloride [Moles/Vol] 101 mmol/L Normal 98-108 [facility] Comment on above: Performed By: #### L 100.0500, L500.2500 ####[facility] [address] [place], [address] CO2 [Moles/Vol] 23.8 mmol/L Normal 21.0-32.0 [facility] Comment on above: Performed By: #### L 100.0500, L500.2500 ####[facility] [address] [place], [address] Creatinine [Mass/Vol] 1.37 mg/dL High 0.70-1.20 [facility] Comment on above: Performed By: #### L 100.0500, L500.2500 ####[facility] [address] [place], [address] ECRCL 30.92 ml/min Low 50-250 [facility] Comment on above: Performed By: #### L 100.0500, L500.2500 ####[facility] [address] [place], [address] GAP 9 Normal 5-15 [facility] Comment on above: Performed By: #### L 100.0500, L500.2500 ####[facility] [address] [place], [address] GFR/1.73 sq M.predicted among non-blacks MDRD (S/P/Bld) [Vol rate/Area] 44 mL/min/{1.73_m2} Low >60 [facility] Comment on above: Result Comment: mL/m in/1.73m2 CKD-EPI Creatinine Equation (2020) Performed By: #### L 100.0500, L500.2500 ####[facility] [address] [place], [address] Glucose [Mass/Vol] 54 mg/dL Low 70-99 [facility] Comment on above: Performed By: #### L 100.0500, L500.2500 ####[facility] [address] [place], [address] Potassium [Moles/Vol] 5.3 mmol/L High 3.3-5.1 [facility] Comment on above: Performed By: #### L 100.0500, L500.2500 ####[facility] [address] [place], [address] Sodium [Moles/Vol] 134 mmol/L Normal 133-145 [facility] Comment on above: Performed By: #### L 100.0500, L500.2500 ####[facility] [address] [place], [address] Urea nitrogen [Mass/Vol] 46 mg/dL High 4-19 [facility] Comment on above: Performed By: #### L 100.0500, L500.2500 ####[facility] [address] [place], [address] BUN Normal 4-19 [facility] Comment on above: Result Comment: Canc elled via OM: Order cancelled - Patient discharged Performed By: #### L 500.2500, L100.0100 ####[facility] [address] [place], [address] BUN/CRE Normal 10-20 [facility] Comment on above: Result Comment: Canc elled via OM: Order cancelled - Patient discharged Performed By: #### L 500.2500, L100.0100 ####[facility] [address] [place], [address] Calcium Normal 7.6-11.0 [facility] Comment on above: Result Comment: Canc elled via OM: Order cancelled - Patient discharged Performed By: #### L 500.2500, L100.0100 ####[facility] [address] [place], [address] CL Normal 98-107 [facility] Comment on above: Result Comment: Canc elled via OM: Order cancelled - Patient discharged Performed By: #### L 500.2500, L100.0100 ####[facility] [address] [place], [address] CO2 Normal 21.0-32.0 [facility] Comment on above: Result Comment: Canc elled via OM: Order cancelled - Patient discharged Performed By: #### L 500.2500, L100.0100 ####[facility] [address] [place], [address] CREAT,SERUM Normal 0.70-1.20 [facility] Comment on above: Result Comment: Canc elled via OM: Order cancelled - Patient discharged Performed By: #### L 500.2500, L100.0100 ####[facility] [address] [place], [address] eGFR Normal >60 [facility] Comment on above: Result Comment: Canc elled via OM: Order cancelled - Patient discharged Performed By: #### L 500.2500, L100.0100 ####[facility] [address] [place], [address] GAP Normal 5-15 [facility] Comment on above: Result Comment: Canc elled via OM: Order cancelled - Patient discharged Performed By: #### L 500.2500, L100.0100 ####[facility] [address] [place], [address] GLU Normal 70-99 [facility] Comment on above: Result Comment: Canc elled via OM: Order cancelled - Patient discharged Performed By: #### L 500.2500, L100.0100 ####[facility] [address] [place], [address] Potassium Normal 3.5-5.1 [facility] Comment on above: Result Comment: Canc elled via OM: Order cancelled - Patient discharged Performed By: #### L 500.2500, L100.0100 ####[facility] [address] [place], [address] Basic Metabolic Profile (BMP) Normal 136-145 [facility] Comment on above: Result Comment: Canc elled via OM: Order cancelled - Patient discharged Performed By: #### L 500.2500, L100.0100 ####[facility] [address] [place], [address] CBC W/Diff, Automatedon 03-0 Absolute Neut Normal 2.0-7.7 [facility] Comment on above: Result Comment: Canc elled via OM: Order cancelled - Patient discharged Performed By: #### L 500.2500, L100.0100 ####[facility] [address] [place], [address] HCT Normal 37-47 [facility] Comment on above: Result Comment: Canc elled via OM: Order cancelled - Patient discharged Performed By: #### L 500.2500, L100.0100 ####[facility] [address] [place], [address] HGB Normal 12.0-15.0 [facility] Comment on above: Result Comment: Canc elled via OM: Order cancelled - Patient discharged Performed By: #### L 500.2500, L100.0100 ####[facility] [address] [place], [address] MCH Normal 27.0-32.0 [facility] Comment on above: Result Comment: Canc elled via OM: Order cancelled - Patient discharged Performed By: #### L 500.2500, L100.0100 ####[facility] [address] [place], [address] MCHC Normal 32-36 [facility] Comment on above: Result Comment: Canc elled via OM: Order cancelled - Patient discharged Performed By: #### L 500.2500, L100.0100 ####[facility] [address] [place], [address] MCV Normal 81-99 [facility] Comment on above: Result Comment: Canc elled via OM: Order cancelled - Patient discharged Performed By: #### L 500.2500, L100.0100 ####[facility] [address] [place], [address] NEUT% Normal 47-70 [facility] Comment on above: Result Comment: Canc elled via OM: Order cancelled - Patient discharged Performed By: #### L 500.2500, L100.0100 ####[facility] [address] [place], [address] PLT Normal 150-450 [facility] Comment on above: Result Comment: Canc elled via OM: Order cancelled - Patient discharged Performed By: #### L 500.2500, L100.0100 ####[facility] [address] [place], [address] RBC Normal 4.2-5.4 [facility] Comment on above: Result Comment: Canc elled via OM: Order cancelled - Patient discharged Performed By: #### L 500.2500, L100.0100 ####[facility] [address] [place], [address] RDW CV Normal 11.6-14.6 [facility] Comment on above: Result Comment: Canc elled via OM: Order cancelled - Patient discharged Performed By: #### L 500.2500, L100.0100 ####[facility] [address] [place], [address] RDW SD Normal 35.1-43.9 [facility] Comment on above: Result Comment: Canc elled via OM: Order cancelled - Patient discharged Performed By: #### L 500.2500, L100.0100 ####[facility] [address] [place], [address] WBC Normal 4.4-11.0 [facility] Comment on above: Result Comment: Canc elled via OM: Order cancelled - Patient discharged Performed By: #### L 500.2500, L100.0100 ####[facility] [address] [place], [address] CBC-Complete Blood Cnt No Di ffon 08-02-2024 Erythrocyte distribution width (RBC) [Ratio] 17.5 % High 11.6-14.6 [facility] Comment on above: Performed By: #### L 100.0500, L500.2500 ####[facility] [address] [place], [address] Hematocrit (Bld) [Volume fraction] 23.8 % Low 37-47 [facility] Comment on above: Performed By: #### L 100.0500, L500.2500 ####[facility] [address] [place], [address] Hemoglobin (Bld) [Mass/Vol] 7.1 g/dL Low 12.0-15.0 [facility] Comment on above: Performed By: #### L 100.0500, L500.2500 ####[facility] [address] [place], [address] MCH (RBC) [Entitic mass] 25.8 pg Low 27.0-32.0 [facility] Comment on above: Performed By: #### L 100.0500, L500.2500 ####[facility] [address] [place], [address] MCHC (RBC) [Mass/Vol] 29.8 g/dL Low 32-36 [facility] Comment on above: Performed By: #### L 100.0500, L500.2500 ####[facility] [address] [place], [address] MCV (RBC) [Entitic vol] 86.5 fL Normal 81-99 [facility] Comment on above: Performed By: #### L 100.0500, L500.2500 ####[facility] [address] [place], [address] Platelet mean volume (Bld) [Entitic vol] 9.6 fL Normal 6.2-12.0 [facility] Comment on above: Performed By: #### L 100.0500, L500.2500 ####[facility] [address] [place], [address] Platelets (Bld) [#/Vol] 284 10*3/uL Normal 150-450 [facility] Comment on above: Performed By: #### L 100.0500, L500.2500 ####[facility] [address] [place], [address] RBC (Bld) [#/Vol] 2.75 10*6/uL Low 4.2-5.4 [facility] Comment on above: Performed By: #### L 100.0500, L500.2500 ####[facility] [address] [place], [address] RDW SD 55.0 fl High 35.1-43.9 [facility] Comment on above: Performed By: #### L 100.0500, L500.2500 ####[facility] [address] [place], [address] WBC (Bld) [#/Vol] 11.7 10*3/uL High 4.4-11.0 [facility] Comment on above: Performed By: #### L 100.0500, L500.2500 ####[facility] [address] [place], [address] HH, Hemoglobin AND Hematocri ton 08-02-2024 Hematocrit (Bld) [Volume fraction] 26.9 % Low 37-47 [facility] Comment on above: Performed By: #### L 100.0600 ####[facility] [address] [place], [address] Hemoglobin (Bld) [Mass/Vol] 7.9 g/dL Low 12.0-15.0 [facility] Comment on above: Performed By: #### L 100.0600 ####[facility] [address] [place], [address] ,Urineon 08-02-2024 Beta HCG ( test) Ql (U) Negative Normal [facility] Comment on above: Order Comment: Anyon chacho has had a period within [id number] Result Comment: Very dilute urine specimens, as indicated by a low specificgravity, may not contain admissions representative levels of hCG.If is still suspected, a first morning urinespecimen should be collected 48 hours later and tested. Performed By: #### L 400.7600 ####[facility] [address] [place], [address] Urine testOrdered By: Nick Gallegos on 08-02-2024 HCG ( test) Ql (U) Negative [facility] Urine test Negative [facility] Basic Metabolic Profile (BMP )on 08-01-2024 BUN Normal 4-19 [facility] Comment on above: Result Comment: @CAN CELED Performed By: #### L 500.2500 ####[facility] [address] [place], [address] BUN/CRE Normal 10-20 [facility] Comment on above: Result Comment: @CAN CELED Performed By: #### L 500.2500 ####[facility] [address] [place], [address] Calcium Normal 7.6-11.0 [facility] Comment on above: Result Comment: @CAN CELED Performed By: #### L 500.2500 ####[facility] [address] [place], [address] CL Normal 98-108 [facility] Comment on above: Result Comment: @CAN CELED Performed By: #### L 500.2500 ####[facility] [address] [place], [address] CO2 Normal 21.0-32.0 [facility] Comment on above: Result Comment: @CAN CELED Performed By: #### L 500.2500 ####[facility] [address] [place], [address] CREAT,SERUM Normal 0.70-1.20 [facility] Comment on above: Result Comment: @CAN CELED Performed By: #### L 500.2500 ####[facility] [address] [place], [address] eGFR Normal >60 [facility] Comment on above: Result Comment: @CAN CELED Performed By: #### L 500.2500 ####[facility] [address] [place], [address] GAP Normal 5-15 [facility] Comment on above: Result Comment: @CAN CELED Performed By: #### L 500.2500 ####[facility] [address] [place], [address] GLU Normal 70-99 [facility] Comment on above: Result Comment: @CAN CELED Performed By: #### L 500.2500 ####[facility] [address] [place], [address] Potassium Normal 3.3-5.1 [facility] Comment on above: Result Comment: @CAN CELED Performed By: #### L 500.2500 ####[facility] [address] [place], [address] Basic Metabolic Profile (BMP) Normal 133-145 [facility] Comment on above: Result Comment: @CAN CELED Performed By: #### L 500.2500 ####[facility] [address] [place], [address] BUN/CRE 34.4 RATIO High 10-20 [facility] Comment on above: Performed By: #### L 500.2500, L100.0500 ####[facility] [address] [place], [address] Calcium [Mass/Vol] 8.8 mg/dL Normal 7.6-11.0 [facility] Comment on above: Performed By: #### L 500.2500, L100.0500 ####[facility] [address] [place], [address] Chloride [Moles/Vol] 97 mmol/L Low 98-108 [facility] Comment on above: Performed By: #### L 500.2500, L100.0500 ####[facility] [address] [place], [address] CO2 [Moles/Vol] 18.2 mmol/L Low 21.0-32.0 [facility] Comment on above: Performed By: #### L 500.2500, L100.0500 ####[facility] [address] [place], [address] Creatinine [Mass/Vol] 1.97 mg/dL High 0.70-1.20 [facility] Comment on above: Performed By: #### L 500.2500, L100.0500 ####[facility] [address] [place], [address] ECRCL 21.83 ml/min Low 50-250 [facility] Comment on above: Performed By: #### L 500.2500, L100.0500 ####[facility] [address] [place], [address] GAP 13 Normal 5-15 [facility] Comment on above: Performed By: #### L 500.2500, L100.0500 ####[facility] [address] [place], [address] GFR/1.73 sq M.predicted among non-blacks MDRD (S/P/Bld) [Vol rate/Area] 28 mL/min/{1.73_m2} Low >60 [facility] Comment on above: Result Comment: mL/m in/1.73m2 CKD-EPI Creatinine Equation (2020) Performed By: #### L 500.2500, L100.0500 ####[facility] [address] [place], [address] Glucose [Mass/Vol] 75 mg/dL Normal 70-99 [facility] Comment on above: Performed By: #### L 500.2500, L100.0500 ####[facility] [address] [place], [address] Potassium [Moles/Vol] 6.4 mmol/L Invalid Interpretation Code 3.3-5.1 [facility] Comment on above: Result Comment: Crit ical Result(s) Called at:0630 by:WALTER KENNEDY [facility]??Results read back by same. Performed By: #### L 500.2500, L100.0500 ####[facility] [address] [place], [place], [address] Sodium [Moles/Vol] 128 mmol/L Low 133-145 [facility] Comment on above: Performed By: #### L 500.2500, L100.0500 ####[facility] [address] [place], [address] Urea nitrogen [Mass/Vol] 68 mg/dL High 4-19 [facility] Comment on above: Performed By: #### L 500.2500, L100.0500 ####[facility] [address] [place], [address] BUN Normal 4-19 [facility] Comment on above: Result Comment: Canc elled via OM: Order cancelled - Patient discharged Performed By: #### L 500.2500, L100.0100 ####[facility] [address] [place], [address] BUN/CRE Normal 10-20 [facility] Comment on above: Result Comment: Canc elled via OM: Order cancelled - Patient discharged Performed By: #### L 500.2500, L100.0100 ####[facility] [address] [place], [address] Calcium Normal 7.6-11.0 [facility] Comment on above: Result Comment: Canc elled via OM: Order cancelled - Patient discharged Performed By: #### L 500.2500, L100.0100 ####[facility] [address] [place], [address] CL Normal 98-107 [facility] Comment on above: Result Comment: Canc elled via OM: Order cancelled - Patient discharged Performed By: #### L 500.2500, L100.0100 ####[facility] [address] [place], [address] CO2 Normal 21.0-32.0 [facility] Comment on above: Result Comment: Canc elled via OM: Order cancelled - Patient discharged Performed By: #### L 500.2500, L100.0100 ####[facility] [address] [place], [address] CREAT,SERUM Normal 0.70-1.20 [facility] Comment on above: Result Comment: Canc elled via OM: Order cancelled - Patient discharged Performed By: #### L 500.2500, L100.0100 ####[facility] [address] [place], [address] eGFR Normal >60 [facility] Comment on above: Result Comment: Canc elled via OM: Order cancelled - Patient discharged Performed By: #### L 500.2500, L100.0100 ####[facility] [address] [place], [address] GAP Normal 5-15 [facility] Comment on above: Result Comment: Canc elled via OM: Order cancelled - Patient discharged Performed By: #### L 500.2500, L100.0100 ####[facility] [address] [place], [address] GLU Normal 70-99 [facility] Comment on above: Result Comment: Canc elled via OM: Order cancelled - Patient discharged Performed By: #### L 500.2500, L100.0100 ####[facility] [address] [place], [address] Potassium Normal 3.5-5.1 [facility] Comment on above: Result Comment: Canc elled via OM: Order cancelled - Patient discharged Performed By: #### L 500.2500, L100.0100 ####[facility] [address] [place], [address] Basic Metabolic Profile (BMP) Normal 136-145 [facility] Comment on above: Result Comment: Canc elled via OM: Order cancelled - Patient discharged Performed By: #### L 500.2500, L100.0100 ####[facility] [address] [place], [address] CBC W/Diff, Automatedon 03-0 -2024 Absolute Neut Normal 2.0-7.7 [facility] Comment on above: Result Comment: Canc elled via OM: Order cancelled - Patient discharged Performed By: #### L 500.2500, L100.0100 ####[facility] [address] [place], [address] HCT Normal 37-47 [facility] Comment on above: Result Comment: Canc elled via OM: Order cancelled - Patient discharged Performed By: #### L 500.2500, L100.0100 ####[facility] [address] [place], [address] HGB Normal 12.0-15.0 [facility] Comment on above: Result Comment: Canc elled via OM: Order cancelled - Patient discharged Performed By: #### L 500.2500, L100.0100 ####[facility] [address] [place], [address] MCH Normal 27.0-32.0 [facility] Comment on above: Result Comment: Canc elled via OM: Order cancelled - Patient discharged Performed By: #### L 500.2500, L100.0100 ####[facility] [address] [place], [address] MCHC Normal 32-36 [facility] Comment on above: Result Comment: Canc elled via OM: Order cancelled - Patient discharged Performed By: #### L 500.2500, L100.0100 ####[facility] [address] [place], [address] MCV Normal 81-99 [facility] Comment on above: Result Comment: Canc elled via OM: Order cancelled - Patient discharged Performed By: #### L 500.2500, L100.0100 ####[facility] [address] [place], [address] NEUT% Normal 47-70 [facility] Comment on above: Result Comment: Canc elled via OM: Order cancelled - Patient discharged Performed By: #### L 500.2500, L100.0100 ####[facility] [address] [place], [address] PLT Normal 150-450 [facility] Comment on above: Result Comment: Canc elled via OM: Order cancelled - Patient discharged Performed By: #### L 500.2500, L100.0100 ####[facility] [address] [place], [address] RBC Normal 4.2-5.4 [facility] Comment on above: Result Comment: Canc elled via OM: Order cancelled - Patient discharged Performed By: #### L 500.2500, L100.0100 ####[facility] [address] [place], [address] RDW CV Normal 11.6-14.6 [facility] Comment on above: Result Comment: Canc elled via OM: Order cancelled - Patient discharged Performed By: #### L 500.2500, L100.0100 ####[facility] [address] [place], [address] RDW SD Normal 35.1-43.9 [facility] Comment on above: Result Comment: Canc elled via OM: Order cancelled - Patient discharged Performed By: #### L 500.2500, L100.0100 ####[facility] [address] [place], [address] WBC Normal 4.4-11.0 [facility] Comment on above: Result Comment: Canc elled via OM: Order cancelled - Patient discharged Performed By: #### L 500.2500, L100.0100 ####[facility] [address] [place], [address] CBC-Complete Blood Cnt No Di ffon 08-01-2024 Erythrocyte distribution width (RBC) [Ratio] 17.6 % High 11.6-14.6 [facility] Comment on above: Performed By: #### L 500.2500, L100.0500 ####[facility] [address] [place], [address] Hematocrit (Bld) [Volume fraction] 27.2 % Low 37-47 [facility] Comment on above: Performed By: #### L 500.2500, L100.0500 ####[facility] [address] [place], [address] Hemoglobin (Bld) [Mass/Vol] 8.1 g/dL Low 12.0-15.0 [facility] Comment on above: Performed By: #### L 500.2500, L100.0500 ####[facility] [address] [place], [address] MCH (RBC) [Entitic mass] 26.0 pg Low 27.0-32.0 [facility] Comment on above: Performed By: #### L 500.2500, L100.0500 ####[facility] [address] [place], [address] MCHC (RBC) [Mass/Vol] 29.8 g/dL Low 32-36 [facility] Comment on above: Performed By: #### L 500.2500, L100.0500 ####[facility] [address] [place], [address] MCV (RBC) [Entitic vol] 87.5 fL Normal 81-99 [facility] Comment on above: Performed By: #### L 500.2500, L100.0500 ####[facility] [address] [place], [address] Platelet mean volume (Bld) [Entitic vol] 9.3 fL Normal 6.2-12.0 [facility] Comment on above: Performed By: #### L 500.2500, L100.0500 ####[facility] [address] [place], [address] Platelets (Bld) [#/Vol] 230 10*3/uL Normal 150-450 [facility] Comment on above: Performed By: #### L 500.2500, L100.0500 ####[facility] [address] [place], [address] RBC (Bld) [#/Vol] 3.11 10*6/uL Low 4.2-5.4 [facility] Comment on above: Performed By: #### L 500.2500, L100.0500 ####[facility] [address] [place], [address] RDW SD 56.1 fl High 35.1-43.9 [facility] Comment on above: Performed By: #### L 500.2500, L100.0500 ####[facility] [address] [place], [address] WBC (Bld) [#/Vol] 17.7 10*3/uL High 4.4-11.0 [facility] Comment on above: Performed By: #### L 500.2500, L100.0500 ####[facility] [address] [place], [address] Consultation - Nephrologyon 08-01-2024 Consultation - Nephrology Normal [facility] MR/CON.PCM.GIon 08-01-2024 MR/CON.PCM.GI Normal [facility] Abdomen/Pelvis W IV Cont ONL Yon 07-31-2024 Abdomen/Pelvis W IV Cont ONLY Normal [facility] Activated partial thrombopla stin time (aPTT) in platelet poor plasma by coagulation aOrdered By: Noah Avery on 07-31-2024 aPTT Coag (PPP) [Time] 42.1 s High 24.1-36.2 [facility] [id number] 07-31-2024 ANTIBODY ID Normal [facility] Comment on above: Order Comment: HGI Result Comment: CFYA Performed By: #### B MATEO, [facility], [id number] ####[facility] [address] [place], [address] BRCon 07-31-2024 RC Normal [facility] Comment on above: Result Comment: [id number] ON RC XM [id number] ON RC XM COMPATIBLE Performed By: #### B MATEO, KENDRA, [id number] ####[facility] [address] [place], [address] Basic Metabolic Profile (BMP )on 07-31-2024 BUN Normal 4-19 [facility] Comment on above: Result Comment: Canc elled via OM: Order cancelled - Patient discharged Performed By: #### L 100.0100, L500.2500 ####[facility] [address] [place], [address] BUN/CRE Normal 10-20 [facility] Comment on above: Result Comment: Canc elled via OM: Order cancelled - Patient discharged Performed By: #### L 100.0100, L500.2500 ####[facility] [address] [place], [address] Calcium Normal 7.6-11.0 [facility] Comment on above: Result Comment: Canc elled via OM: Order cancelled - Patient discharged Performed By: #### L 100.0100, L500.2500 ####[facility] [address] [place], [address] CL Normal 98-107 [facility] Comment on above: Result Comment: Canc elled via OM: Order cancelled - Patient discharged Performed By: #### L 100.0100, L500.2500 ####[facility] [address] [place], [address] CO2 Normal 21.0-32.0 [facility] Comment on above: Result Comment: Canc elled via OM: Order cancelled - Patient discharged Performed By: #### L 100.0100, L500.2500 ####[facility] [address] [place], [address] CREAT,SERUM Normal 0.70-1.20 [facility] Comment on above: Result Comment: Canc elled via OM: Order cancelled - Patient discharged Performed By: #### L 100.0100, L500.2500 ####[facility] [address] [place], [address] eGFR Normal >60 [facility] Comment on above: Result Comment: Canc elled via OM: Order cancelled - Patient discharged Performed By: #### L 100.0100, L500.2500 ####[facility] [address] [place], [address] GAP Normal 5-15 [facility] Comment on above: Result Comment: Canc elled via OM: Order cancelled - Patient discharged Performed By: #### L 100.0100, L500.2500 ####[facility] [address] [place], [address] GLU Normal 70-99 [facility] Comment on above: Result Comment: Canc elled via OM: Order cancelled - Patient discharged Performed By: #### L 100.0100, L500.2500 ####[facility] [address] [place], [address] Potassium Normal 3.5-5.1 [facility] Comment on above: Result Comment: Canc elled via OM: Order cancelled - Patient discharged Performed By: #### L 100.0100, L500.2500 ####[facility] [address] [place], [address] Basic Metabolic Profile (BMP) Normal 136-145 [facility] Comment on above: Result Comment: Canc elled via OM: Order cancelled - Patient discharged Performed By: #### L 100.0100, L500.2500 ####[facility] [address] [place], [address] CBC W/Diff, Automatedon 03-0 5-2024 Absolute Lymph 0.40 X10 3/uL Low 0.83-4.51 [facility] Comment on above: Performed By: #### L 100.0100, L501.2450, L500.4050 ####[facility] [address] [place], [address] Absolute Neut 9.3 X10 3/uL High 2.0-7.7 [facility] Comment on above: Performed By: #### L 100.0100, L501.2450, L500.4050 ####[facility] [address] [place], [address] Basophils/100 WBC (Bld) 0.3 % Normal 0-1 [facility] Comment on above: Performed By: #### L 100.0100, L501.2450, L500.4050 ####[facility] [address] [place], [address] Eosinophils/100 WBC (Bld) 0.5 % Normal 0-5 [facility] Comment on above: Performed By: #### L 100.0100, L501.2450, L500.4050 ####[facility] [address] [place], [address] Erythrocyte distribution width (RBC) [Ratio] 17.3 % High 11.6-14.6 [facility] Comment on above: Performed By: #### L 100.0100, L501.2450, L500.4050 ####[facility] [address] [place], [address] Hematocrit (Bld) [Volume fraction] 25.7 % Low 37-47 [facility] Comment on above: Performed By: #### L 100.0100, L501.2450, L500.4050 ####[facility] [address] [place], [address] Hemoglobin (Bld) [Mass/Vol] 7.7 g/dL Low 12.0-15.0 [facility] Comment on above: Performed By: #### L 100.0100, L501.2450, L500.4050 ####[facility] [address] [place], [address] IG% 3.200 High 0.0-0.9 [facility] Comment on above: Result Comment: IG% - Immature Granulocytes (promyelocytes, myelocytes andmetamyelocytes) > 1% indicates that a LEFT SHIFT is Present. Performed By: #### L 100.0100, L501.2450, L500.4050 ####[facility] [address] [place], [address] Lymphocytes/100 WBC (Bld) 3.7 % Low 19-41 [facility] Comment on above: Performed By: #### L 100.0100, L501.2450, L500.4050 ####[facility] [address] [place], [address] MCH (RBC) [Entitic mass] 25.7 pg Low 27.0-32.0 [facility] Comment on above: Performed By: #### L 100.0100, L501.2450, L500.4050 ####[facility] [address] [place], [address] MCHC (RBC) [Mass/Vol] 30.0 g/dL Low 32-36 [facility] Comment on above: Performed By: #### L 100.0100, L501.2450, L500.4050 ####[facility] [address] [place], [address] MCV (RBC) [Entitic vol] 85.7 fL Normal 81-99 [facility] Comment on above: Performed By: #### L 100.0100, L501.2450, L500.4050 ####[facility] [address] [place], [address] Monocytes/100 WBC (Bld) 5.8 % Normal 0-10 [facility] Comment on above: Performed By: #### L 100.0100, L501.2450, L500.4050 ####[facility] [address] [place], [address] Neutrophils/100 WBC (Bld) 86.5 % High 47-70 [facility] Comment on above: Performed By: #### L 100.0100, L501.2450, L500.4050 ####[facility] [address] [place], [address] Nucleated RBC (Bld) [#/Vol] 0 10*3/uL Normal 0-5 [facility] Comment on above: Performed By: #### L 100.0100, L501.2450, L500.4050 ####[facility] [address] [place], [address] Platelet mean volume (Bld) [Entitic vol] 9.7 fL Normal 6.2-12.0 [facility] Comment on above: Performed By: #### L 100.0100, L501.2450, L500.4050 ####[facility] [address] [place], [address] Platelets (Bld) [#/Vol] 169 10*3/uL Normal 150-450 [facility] Comment on above: Performed By: #### L 100.0100, L501.2450, L500.4050 ####[facility] [address] [place], [address] RBC (Bld) [#/Vol] 3.00 10*6/uL Low 4.2-5.4 [facility] Comment on above: Performed By: #### L 100.0100, L501.2450, L500.4050 ####[facility] [address] [place], [address] RDW SD 53.7 fl High 35.1-43.9 [facility] Comment on above: Performed By: #### L 100.0100, L501.2450, L500.4050 ####[facility] [address] [place], [address] WBC (Bld) [#/Vol] 10.7 10*3/uL Normal 4.4-11.0 [facility] Comment on above: Performed By: #### L 100.0100, L501.2450, L500.4050 ####[facility] [address] [place], [address] Absolute Neut Normal 2.0-7.7 [facility] Comment on above: Result Comment: Canc elled via OM: Order cancelled - Patient discharged Performed By: #### L 100.0100, L500.2500 ####[facility] [address] [place], [address] HCT Normal 37-47 [facility] Comment on above: Result Comment: Canc elled via OM: Order cancelled - Patient discharged Performed By: #### L 100.0100, L500.2500 ####[facility] [address] [place], [address] HGB Normal 12.0-15.0 [facility] Comment on above: Result Comment: Canc elled via OM: Order cancelled - Patient discharged Performed By: #### L 100.0100, L500.2500 ####[facility] [address] [place], [address] MCH Normal 27.0-32.0 [facility] Comment on above: Result Comment: Canc elled via OM: Order cancelled - Patient discharged Performed By: #### L 100.0100, L500.2500 ####[facility] [address] [place], [address] MCHC Normal 32-36 [facility] Comment on above: Result Comment: Canc elled via OM: Order cancelled - Patient discharged Performed By: #### L 100.0100, L500.2500 ####[facility] [address] [place], [address] MCV Normal 81-99 [facility] Comment on above: Result Comment: Canc elled via OM: Order cancelled - Patient discharged Performed By: #### L 100.0100, L500.2500 ####[facility] [address] [place], [address] NEUT% Normal 47-70 [facility] Comment on above: Result Comment: Canc elled via OM: Order cancelled - Patient discharged Performed By: #### L 100.0100, L500.2500 ####[facility] [address] [place], [address] PLT Normal 150-450 [facility] Comment on above: Result Comment: Canc elled via OM: Order cancelled - Patient discharged Performed By: #### L 100.0100, L500.2500 ####[facility] [address] [place], [address] RBC Normal 4.2-5.4 [facility] Comment on above: Result Comment: Canc elled via OM: Order cancelled - Patient discharged Performed By: #### L 100.0100, L500.2500 ####[facility] [address] [place], [address] RDW CV Normal 11.6-14.6 [facility] Comment on above: Result Comment: Canc elled via OM: Order cancelled - Patient discharged Performed By: #### L 100.0100, L500.2500 ####[facility] [address] [place], [address] RDW SD Normal 35.1-43.9 [facility] Comment on above: Result Comment: Canc elled via OM: Order cancelled - Patient discharged Performed By: #### L 100.0100, L500.2500 ####[facility] [address] [place], [address] WBC Normal 4.4-11.0 [facility] Comment on above: Result Comment: Canc elled via OM: Order cancelled - Patient discharged Performed By: #### L 100.0100, L500.2500 ####[facility] [address] [place], [address] Comprehensive Metabolic Prof [facility] 07-31-2024 Albumin [Mass/Vol] 2.3 g/dL Low 3.4-4.8 [facility] Comment on above: Performed By: #### L 100.0100, L501.2450, L500.4050 ####[facility] [address] [place], [address] Albumin/Globulin [Mass ratio] 0.6 {ratio} Low 0.9-2.4 [facility] Comment on above: Performed By: #### L 100.0100, L501.2450, L500.4050 ####[facility] [address] [place], [address] ALK PHOS 66 U/L Normal 35-104 [facility] Comment on above: Performed By: #### L 100.0100, L501.2450, L500.4050 ####[facility] [address] [place], [address] ALT [Catalytic activity/Vol] U/L Normal <=34 [facility] Comment on above: Performed By: #### L 100.0100, L501.2450, L500.4050 ####[facility] [address] [place], [address] AST [Catalytic activity/Vol] 20 U/L Normal <=31 [facility] Comment on above: Performed By: #### L 100.0100, L501.2450, L500.4050 ####[facility] [address] [place], [address] Bilirubin [Mass/Vol] 0.19 mg/dL Normal 0.00-1.30 [facility] Comment on above: Performed By: #### L 100.0100, L501.2450, L500.4050 ####[facility] [address] [place], [address] BUN/CRE 30.7 RATIO High 10-20 [facility] Comment on above: Performed By: #### L 100.0100, L501.2450, L500.4050 ####[facility] [address] [place], [address] Calcium [Mass/Vol] 9.0 mg/dL Normal 7.6-11.0 [facility] Comment on above: Performed By: #### L 100.0100, L501.2450, L500.4050 ####[facility] [address] [place], [address] Chloride [Moles/Vol] 95 mmol/L Low 98-108 [facility] Comment on above: Performed By: #### L 100.0100, L501.2450, L500.4050 ####[facility] [address] [place], [address] CO2 [Moles/Vol] 24.7 mmol/L Normal 21.0-32.0 [facility] Comment on above: Performed By: #### L 100.0100, L501.2450, L500.4050 ####[facility] [address] [place], [address] Creatinine [Mass/Vol] 1.88 mg/dL High 0.70-1.20 [facility] Comment on above: Performed By: #### L 100.0100, L501.2450, L500.4050 ####[facility] [address] [place], [address] ECRCL 24.29 ml/min Low 50-250 [facility] Comment on above: Performed By: #### L 100.0100, L501.2450, L500.4050 ####[facility] [address] [place], [address] GAP 10 Normal 5-15 [facility] Comment on above: Performed By: #### L 100.0100, L501.2450, L500.4050 ####[facility] [address] [place], [address] GFR/1.73 sq M.predicted among non-blacks MDRD (S/P/Bld) [Vol rate/Area] 30 mL/min/{1.73_m2} Low >60 [facility] Comment on above: Result Comment: mL/m in/1.73m2 CKD-EPI Creatinine Equation (2020) Performed By: #### L 100.0100, L501.2450, L500.4050 ####[facility] [address] [place], [address] Globulin (S) [Mass/Vol] 3.6 g/dL Normal 2.2-4.2 [facility] Comment on above: Performed By: #### L 100.0100, L501.2450, L500.4050 ####[facility] [address] [place], [address] Glucose [Mass/Vol] 110 mg/dL High 70-99 [facility] Comment on above: Performed By: #### L 100.0100, L501.2450, L500.4050 ####[facility] [address] [place], [address] Potassium [Moles/Vol] 5.7 mmol/L High 3.3-5.1 [facility] Comment on above: Performed By: #### L 100.0100, L501.2450, L500.4050 ####[facility] [address] [place], [address] Sodium [Moles/Vol] 129 mmol/L Low 133-145 [facility] Comment on above: Performed By: #### L 100.0100, L501.2450, L500.4050 ####[facility] [address] [place], [address] T PROT 5.9 g/dL Normal 5.9-8.4 [facility] Comment on above: Performed By: #### L 100.0100, L501.2450, L500.4050 ####[facility] [address] [place], [address] Urea nitrogen [Mass/Vol] 58 mg/dL High 4-19 [facility] Comment on above: Performed By: #### L 100.0100, L501.2450, L500.4050 ####[facility] [address] [place], [address] Emergency Department Summary on 07-31-2024 Emergency Department Summary Normal [facility] H AND P Exam - Hospitaliston 07-31-2024 H&P Exam - Hospitalist Normal [facility] International normalized rat io (INR) calculationOrdered By: Noah Avery on 07-31-2024 International normalized ratio (INR) calculation 1.2 [facility] Lipaseon 07-31-2024 Lipase [Catalytic activity/Vol] 34 U/L Normal 13-75 [facility] Comment on above: Result Comment: Jorge L patterson note:LIPASE revised reference range effective 22.New Lipase methodology. Expected to produce lower valuesthan the previous assay method.NEW Reference Range: 13 - 75 U/L Performed By: #### L 100.0100, L501.2450, L500.4050 ####[facility] [address] [place], [address] Lipase measurementOrdered By : Noah Avery on 07-31-2024 Lipase measurement 34 U/L 13-75 [facility] Partial Thromboplast Timeon 07-31-2024 aPTT Coag (Bld) [Time] 42.1 s High 24.1-36.2 [facility] Comment on above: Performed By: #### L 300.4310, L300.3900 ####[facility] [address] [place], [address] Prothrombin Time w/INRon INR Coag (PPP) [Relative time] 1.2 {INR} Normal [facility] Comment on above: Performed By: #### L 300.4310, L300.3900 ####[facility] [address] [place], [address] PT Coag (PPP) [Time] 15.3 s High 11.7-14.9 [facility] Comment on above: Performed By: #### L 300.4310, L300.3900 ####[facility] [address] [place], [address] Prothrombin timeOrdered By: Noah Avery on 07-31-2024 PT Coag (PPP) [Time] 15.3 s High 11.7-14.9 [facility] Prothrombin time 15.3 SECONDS High 11.7-14.9 [facility] Type AND Screenon 07-31-2024 ABO and Rh group Nom (Bld) Blood group O Rh(D) positive Normal [facility] Comment on above: Order Comment: HGI Performed By: #### B TS, BRC, [id number] ####[facility] [address] [place], [place], [address] aPTT Coag (PPP) [Time]Ordere d By: Noah Avery on 07-31-2024 Activated partial thromboplastin time (aPTT) in platelet poor plasma by coagulation a 42.1 Seconds High 24.1-36.2 [facility] Anion gap [Moles/Vol]Ordered By: Millieblanche Massey on 07-30-2024 Anion gap in Serum or Plasma 11 10-10 [facility] Anion gap in Serum or Plasma Ordered By: Millie Massey on 07-30-2024 Anion gap [Moles/Vol] 11 mmol/L 10-10 [facility] BUN/creatinine ratioOrdered By: Millie Massey on 07-30-2024 Urea nitrogen/Creatinine [Mass ratio] 26.1 mg/mg High [facility] BUN/creatinine ratio 26.1 RATIO High [address] [place] [address] Basic Metabolic Profile (BMP )on 07-30-2024 BUN/CRE 26.1 RATIO High [address] [place] [address] Comment on above: Order Comment: 103.2 Performed By: #### L 506.1001, L503.0106, L500.2500, L500.4100, L501.5200, L100.0500, L501.9520 ####[facility] [address] [place], [place], [address] Calcium [Mass/Vol] 8.6 mg/dL Normal 7.6-11.0 [facility] Comment on above: Order Comment: 103.2 Performed By: #### L 506.1001, L503.0106, L500.2500, L500.4100, L501.5200, L100.0500, L501.9520 ####[facility] [address] [place], [address] Chloride [Moles/Vol] 98 mmol/L Normal 98-108 [facility] Comment on above: Order Comment: 103.2 Performed By: #### L 506.1001, L503.0106, L500.2500, L500.4100, L501.5200, L100.0500, L501.9520 ####[facility] [address] [place], [address] CO2 [Moles/Vol] 24.2 mmol/L Normal 21.0-32.0 [facility] Comment on above: Order Comment: 103.2 Performed By: #### L 506.1001, L503.0106, L500.2500, L500.4100, L501.5200, L100.0500, L501.9520 ####[facility] [address] [place], [address] Creatinine [Mass/Vol] 1.47 mg/dL High 0.70-1.20 [facility] Comment on above: Order Comment: 103.2 Performed By: #### L 506.1001, L503.0106, L500.2500, L500.4100, L501.5200, L100.0500, L501.9520 ####[facility] [address] [place], [address] GAP 11 Normal 5-15 [facility] Comment on above: Order Comment: 103.2 Performed By: #### L 506.1001, L503.0106, L500.2500, L500.4100, L501.5200, L100.0500, L501.9520 ####[facility] [address] [place], [address] GFR/1.73 sq M.predicted among non-blacks MDRD (S/P/Bld) [Vol rate/Area] 40 mL/min/{1.73_m2} Low >60 [facility] Comment on above: Order Comment: 103.2 Result Comment: mL/m in/1.73m2 CKD-EPI Creatinine Equation (2020) Performed By: #### L 506.1001, L503.0106, L500.2500, L500.4100, L501.5200, L100.0500, L501.9520 ####[facility] [address] [place], [address] Glucose [Mass/Vol] 96 mg/dL Normal 70-99 [facility] Comment on above: Order Comment: 103.2 Performed By: #### L 506.1001, L503.0106, L500.2500, L500.4100, L501.5200, L100.0500, L501.9520 ####[facility] [address] [place], [address] Potassium [Moles/Vol] 4.4 mmol/L Normal 3.3-5.1 [facility] Comment on above: Order Comment: 103.2 Performed By: #### L 506.1001, L503.0106, L500.2500, L500.4100, L501.5200, L100.0500, L501.9520 ####[facility] [address] [place], [address] Sodium [Moles/Vol] 133 mmol/L Normal 133-145 [facility] Comment on above: Order Comment: 103.2 Performed By: #### L 506.1001, L503.0106, L500.2500, L500.4100, L501.5200, L100.0500, L501.9520 ####[facility] [address] [place], [address] Urea nitrogen [Mass/Vol] 38 mg/dL High 4-19 [facility] Comment on above: Order Comment: 103.2 Performed By: #### L 506.1001, L503.0106, L500.2500, L500.4100, L501.5200, L100.0500, L501.9520 ####[facility] [address] [place], [address] BUN Normal 4-19 [facility] Comment on above: Result Comment: Canc elled via OM: Order cancelled - Patient discharged Performed By: #### L 500.2500, L100.0100 ####[facility] [address] [place], [address] BUN/CRE Normal 10-20 [facility] Comment on above: Result Comment: Canc elled via OM: Order cancelled - Patient discharged Performed By: #### L 500.2500, L100.0100 ####[facility] [address] [place], [address] Calcium Normal 7.6-11.0 [facility] Comment on above: Result Comment: Canc elled via OM: Order cancelled - Patient discharged Performed By: #### L 500.2500, L100.0100 ####[facility] [address] [place], [address] CL Normal 98-107 [facility] Comment on above: Result Comment: Canc elled via OM: Order cancelled - Patient discharged Performed By: #### L 500.2500, L100.0100 ####[facility] [address] [place], [address] CO2 Normal 21.0-32.0 [facility] Comment on above: Result Comment: Canc elled via OM: Order cancelled - Patient discharged Performed By: #### L 500.2500, L100.0100 ####[facility] [address] [place], [address] CREAT,SERUM Normal 0.70-1.20 [facility] Comment on above: Result Comment: Canc elled via OM: Order cancelled - Patient discharged Performed By: #### L 500.2500, L100.0100 ####[facility] [address] [place], [address] eGFR Normal >60 [facility] Comment on above: Result Comment: Canc elled via OM: Order cancelled - Patient discharged Performed By: #### L 500.2500, L100.0100 ####[facility] [address] [place], [address] GAP Normal 5-15 [facility] Comment on above: Result Comment: Canc elled via OM: Order cancelled - Patient discharged Performed By: #### L 500.2500, L100.0100 ####[facility] [address] [place], [address] GLU Normal 70-99 [facility] Comment on above: Result Comment: Canc elled via OM: Order cancelled - Patient discharged Performed By: #### L 500.2500, L100.0100 ####[facility] [address] [place], [address] Potassium Normal 3.5-5.1 [facility] Comment on above: Result Comment: Canc elled via OM: Order cancelled - Patient discharged Performed By: #### L 500.2500, L100.0100 ####[facility] [address] [place], [address] Basic Metabolic Profile (BMP) Normal 136-145 [facility] Comment on above: Result Comment: Canc elled via OM: Order cancelled - Patient discharged Performed By: #### L 500.2500, L100.0100 ####[facility] [address] [place], [address] CBC W/Diff, Automatedon 03-0 Absolute Neut Normal 2.0-7.7 [facility] Comment on above: Result Comment: Canc elled via OM: Order cancelled - Patient discharged Performed By: #### L 500.2500, L100.0100 ####[place] [facility] [address] [place], [address] HCT Normal 37-47 [facility] Comment on above: Result Comment: Canc elled via OM: Order cancelled - Patient discharged Performed By: #### L 500.2500, L100.0100 ####[facility] [address] [place], [address] HGB Normal 12.0-15.0 [facility] Comment on above: Result Comment: Canc elled via OM: Order cancelled - Patient discharged Performed By: #### L 500.2500, L100.0100 ####[facility] [address] [place], [address] MCH Normal 27.0-32.0 [facility] Comment on above: Result Comment: Canc elled via OM: Order cancelled - Patient discharged Performed By: #### L 500.2500, L100.0100 ####[facility] [address] [place], [address] MCHC Normal 32-36 [facility] Comment on above: Result Comment: Canc elled via OM: Order cancelled - Patient discharged Performed By: #### L 500.2500, L100.0100 ####[facility] [address] [place], [address] MCV Normal 81-99 [facility] Comment on above: Result Comment: Canc elled via OM: Order cancelled - Patient discharged Performed By: #### L 500.2500, L100.0100 ####[facility] [address] [place], [address] NEUT% Normal 47-70 [facility] Comment on above: Result Comment: Canc elled via OM: Order cancelled - Patient discharged Performed By: #### L 500.2500, L100.0100 ####[facility] [address] [place], [address] PLT Normal 150-450 [facility] Comment on above: Result Comment: Canc elled via OM: Order cancelled - Patient discharged Performed By: #### L 500.2500, L100.0100 ####[facility] [address] [place], [address] RBC Normal 4.2-5.4 [facility] Comment on above: Result Comment: Canc elled via OM: Order cancelled - Patient discharged Performed By: #### L 500.2500, L100.0100 ####[facility] [address] [place], [address] RDW CV Normal 11.6-14.6 [facility] Comment on above: Result Comment: Canc elled via OM: Order cancelled - Patient discharged Performed By: #### L 500.2500, L100.0100 ####[facility] [address] [place], [address] RDW SD Normal 35.1-43.9 [facility] Comment on above: Result Comment: Canc elled via OM: Order cancelled - Patient discharged Performed By: #### L 500.2500, L100.0100 ####[facility] [address] [place], [address] WBC Normal 4.4-11.0 [facility] Comment on above: Result Comment: Canc elled via OM: Order cancelled - Patient discharged Performed By: #### L 500.2500, L100.0100 ####[facility] [address] [place], [address] CBC-Complete Blood Cnt No Di ffon 07-30-2024 Erythrocyte distribution width (RBC) [Ratio] 17.2 % High 11.6-14.6 [facility] Comment on above: Order Comment: 103.2 Performed By: #### L 506.1001, L503.0106, L500.2500, L500.4100, L501.5200, L100.0500, L501.9520 ####[facility] [address] [place], [address] Hematocrit (Bld) [Volume fraction] 26.4 % Low 37-47 [facility] Comment on above: Order Comment: 103.2 Performed By: #### L 506.1001, L503.0106, L500.2500, L500.4100, L501.5200, L100.0500, L501.9520 ####[facility] [address] [place], [address] Hemoglobin (Bld) [Mass/Vol] 7.8 g/dL Low 12.0-15.0 [facility] Comment on above: Order Comment: 103.2 Performed By: #### L 506.1001, L503.0106, L500.2500, L500.4100, L501.5200, L100.0500, L501.9520 ####[facility] [address] [place], [address] MCH (RBC) [Entitic mass] 25.7 pg Low 27.0-32.0 [facility] Comment on above: Order Comment: 103.2 Performed By: #### L 506.1001, L503.0106, L500.2500, L500.4100, L501.5200, L100.0500, L501.9520 ####[facility] [address] [place], [address] MCHC (RBC) [Mass/Vol] 29.5 g/dL Low 32-36 [facility] Comment on above: Order Comment: 103.2 Performed By: #### L 506.1001, L503.0106, L500.2500, L500.4100, L501.5200, L100.0500, L501.9520 ####[facility] [address] [place], [address] MCV (RBC) [Entitic vol] 87.1 fL Normal 81-99 [facility] Comment on above: Order Comment: 103.2 Performed By: #### L 506.1001, L503.0106, L500.2500, L500.4100, L501.5200, L100.0500, L501.9520 ####[facility] [address] [place], [address] Platelet mean volume (Bld) [Entitic vol] 9.0 fL Normal 6.2-12.0 [facility] Comment on above: Order Comment: 103.2 Performed By: #### L 506.1001, L503.0106, L500.2500, L500.4100, L501.5200, L100.0500, L501.9520 ####[facility] [address] [place], [address] Platelets (Bld) [#/Vol] 213 10*3/uL Normal 150-450 [facility] Comment on above: Order Comment: 103.2 Performed By: #### L 506.1001, L503.0106, L500.2500, L500.4100, L501.5200, L100.0500, L501.9520 ####[facility] [address] [place], [address] RBC (Bld) [#/Vol] 3.03 10*6/uL Low 4.2-5.4 [facility] Comment on above: Order Comment: 103.2 Performed By: #### L 506.1001, L503.0106, L500.2500, L500.4100, L501.5200, L100.0500, L501.9520 ####[facility] [address] [place], [address] RDW SD 54.9 fl High 35.1-43.9 [facility] Comment on above: Order Comment: 103.2 Performed By: #### L 506.1001, L503.0106, L500.2500, L500.4100, L501.5200, L100.0500, L501.9520 ####[facility] [address] [place], [address] WBC (Bld) [#/Vol] 10.8 10*3/uL Normal 4.4-11.0 [facility] Comment on above: Order Comment: 103.2 Performed By: #### L 506.1001, L503.0106, L500.2500, L500.4100, L501.5200, L100.0500, L501.9520 ####[facility] [address] [place], [address] Calcium [Mass/Vol]Ordered By : Millie Massey on 07-30-2024 Serum or plasma calcium measurement (mass/volume) 8.6 mg/dL 7.6-11.0 [facility] Calculated very low density lipoprotein (VLDL) cholesterol measurementOrdered By: Millie Massey on 07-30-2024 Calculated very low density lipoprotein (VLDL) cholesterol measurement 16 mg/dL 5-40 [facility] Calculated very low density lipoprotein (VLDL) cholesterol measurement 16 mg/dL 5-40 [facility] Carbon dioxide, total [Moles /volume] in Central venous bloodOrdered By: Millie Massey on 07-30-2024 CO2 [Moles/Vol] 24.2 mmol/L 21.0-32.0 [facility] Carbon dioxide, total [Moles/volume] in Central venous blood 24.2 mmol/L 21.0-32.0 [facility] Chloride assayOrdered By: Carter Massey on 07-30-2024 Chloride [Moles/Vol] 98 mmol/L 98-108 [facility] Chloride assay 98 mmol/L 98-108 [facility] Cholesterol [Mass/Vol]Ordere d By: Millie Massey on 07-30-2024 Serum or plasma cholesterol measurement (mass/volume) 51 mg/dL <201 [facility] Cholesterol in HDL [Mass/Vol ]Ordered By: Millie Massey on 07-30-2024 Serum or plasma cholesterol in HDL measurement (mass/volume) 22 mg/dL Low >40 [facility] Cobalamin (Vitamin B12) [Mas s/Vol]Ordered By: Milile Massey on 07-30-2024 Vitamin B12 ser/plas 452 pg/mL 180-914 [facility] Creatinine [Mass/Vol]Ordered By: Millie Massey on 07-30-2024 Serum creatinine measurement (mass/volume) 1.47 mg/dL High 0.70-1.20 [facility] Erythrocyte distribution wid th (RBC) [Ratio]Ordered By: Millie Massey on 07-30-2024 Erythrocyte distribution width ratio 17.2 % High 11.6-14.6 [facility] Erythrocyte distribution wid th ratioOrdered By: Millie Massey on 07-30-2024 Erythrocyte distribution width (RBC) [Ratio] 17.2 % High 11.6-14.6 [facility] Erythrocyte distribution wid th standard deviationOrdered By: Millie Massey on 07-30-2024 Erythrocyte distribution width (RBC) [Ratio] 54.9 fl High 35.1-43.9 [facility] Erythrocyte distribution width standard deviation 54.9 fl High 35.1-43.9 [facility] GFR/1.73 sq M.predicted víctor g non-blacks MDRD (S/P/Bld) [Vol rate/Area]Ordered By: Millie Massey on 07-30-2024 Glomerular filtration rate (GFR) estimation/1.73 sq m using serum, plasma, or whole b 40 Low >60 [facility] Glomerular filtration rate ( GFR) estimation/1.73 sq m using serum, plasma, or whole bOrdered By: Millie Massey on 07-30-2024 GFR/1.73 sq M.predicted among non-blacks MDRD (S/P/Bld) [Vol rate/Area] 40 mL/min/{1.73_m2} Low >60 [facility] Glucose [Mass/Vol]Ordered By : Millie Massey on 07-30-2024 Serum glucose measurement (mass/volume) 96 mg/dL 70-99 [facility] Hematocrit Auto (Bld) [Volum e fraction]Ordered By: Millie Massey on 07-30-2024 Hematocrit (Bld) [Volume fraction] 26.4 % Low 37-47 [facility] Automated blood hematocrit (percentage) 26.4 % Low 37-47 [facility] Hemoglobin measurementOrdere d By: Millie Massey on 07-30-2024 Hemoglobin (Bld) [Mass/Vol] 7.8 g/dL Low 12.0-15.0 [facility] Hemoglobin measurement 7.8 g/dL Low 12.0-15.0 [facility] L503.0106on 07-30-2024 Cobalamin (Vitamin B12) [Mass/Vol] 452 pg/mL Normal 180-914 [facility] Comment on above: Order Comment: 103.2 Performed By: #### L 506.1001, L503.0106, L500.2500, L500.4100, L501.5200, L100.0500, L501.9520 ####[facility] [address] [place], [place], [id number] L506.1001on 07-30-2024 Vitamin D 25-OH 27.8 ng/mL Low 30-100 [facility] Comment on above: Order Comment: 103.2 Result Comment: Kelly min D StatusDeficiency: <20 ng/mL (50nmol/L)Insufficiency: 20-30 ng/mL (50-75 nmol/L)Sufficiency: 30-100 ng/mL (75-250 nmol/L)Toxicity: >100 ng/mL (>250 nmol/L) Performed By: #### L 506.1001, L503.0106, L500.2500, L500.4100, L501.5200, L100.0500, L501.9520 ####[facility] [address] [place], [place], [address] LDL calc ser/plasOrdered By: Millie Massey on 07-30-2024 Cholesterol in LDL [Mass/Vol] 13 mg/dL [facility] LDL calc ser/plas 13 mg/dL [facility] Lipid Profileon 07-30-2024 CHOL:HDL 2.32 Normal [facility] Comment on above: Order Comment: 103.2 Performed By: #### L 506.1001, L503.0106, L500.2500, L500.4100, L501.5200, L100.0500, L501.9520 ####[facility] [address] [place], [address] Cholesterol [Mass/Vol] 51 mg/dL Normal <=200 [facility] Comment on above: Order Comment: 103.2 Result Comment: Chol esterol level, Desirable <200 mg/dLBorderline high cholesterol 200-239 mg/dLHigh cholesterol >=240 mg/dLRecommendations of the NCEP Adult Treatment Panel for thefollowing risk-cutoff thresholds for the [place] Americanpulation. Performed By: #### L 506.1001, L503.0106, L500.2500, L500.4100, L501.5200, L100.0500, L501.9520 ####[facility] [address] [place], [address] Cholesterol in HDL [Mass/Vol] 22 mg/dL Low [facility] Comment on above: Order Comment: 103.2 Result Comment: Lucila onal Cholesterol Education Program (NCEP) guidelines:<40 mg/dL: Low HDL-cholesterol (major risk factor for CHD)>= 60 mg/dL: High HDL-cholesterol (negative risk factor forCHD)HDL-cholesterol is affected by a number of factors, e.g.smoking, exercise, hormones, sex and age. Performed By: #### L 506.1001, L503.0106, L500.2500, L500.4100, L501.5200, L100.0500, L501.9520 ####[facility] [address] [place], [address] Cholesterol in LDL [Mass/Vol] 13 mg/dL Normal [facility] Comment on above: Order Comment: 103.2 Result Comment: Bord hghyds=154-471 mg/dL Higher Typy=099 mg/dL or greater Performed By: #### L 506.1001, L503.0106, L500.2500, L500.4100, L501.5200, L100.0500, L501.9520 ####[facility] [address] [place], [place], [address] Cholesterol in VLDL [Mass/Vol] 16 mg/dL Normal 5-40 [facility] Comment on above: Order Comment: 103.2 Performed By: #### L 506.1001, L503.0106, L500.2500, L500.4100, L501.5200, L100.0500, L501.9520 ####[facility] [address] [place], [place], [address] Triglyceride [Mass/Vol] 82 mg/dL Normal [facility] Comment on above: Order Comment: 103.2 Result Comment: The drugs N-Acetylcysteine and Metamizole may falselydepress this assay.Normal range: <150 mg/dLBorderline High: 150-199 mg/dLHigh: 200-499 mg/dLVery High: >500 mg/dL Performed By: #### L 506.1001, L503.0106, L500.2500, L500.4100, L501.5200, L100.0500, L501.9520 ####[facility] [address] [place], [place], [address] MCV (RBC) [Entitic vol]Order ed By: Millie Massey on 07-30-2024 MCV (mean corpuscular volume) determination 87.1 fL 81-99 [facility] MCV (mean corpuscular volume ) determinationOrdered By: Millie Massey on 07-30-2024 MCV (RBC) [Entitic vol] 87.1 fL 81-99 [facility] Magnesiumon 07-30-2024 Magnesium [Mass/Vol] 1.9 mg/dL Normal 1.5-2.2 [facility] Comment on above: Order Comment: 103.2 Performed By: #### L 506.1001, L503.0106, L500.2500, L500.4100, L501.5200, L100.0500, L501.9520 ####[facility] [address] [place], [address] Magnesium (Unsp spec) [Mass/ Vol]Ordered By: Millie Massey on 07-30-2024 Magnesium measurement (mass/volume) 1.9 mg/dL 1.5-2.2 [facility] Magnesium measurement (mass/ volume)Ordered By: Millie Massey on 07-30-2024 Magnesium (Unsp spec) [Mass/Vol] 1.9 mg/dL 1.5-2.2 [facility] Mean corpuscular hemoglobin (MCH) determinationOrdered By: Millie Massey on 07-30-2024 MCH (RBC) [Entitic mass] 25.7 pg Low 27.0-32.0 [facility] Mean corpuscular hemoglobin (MCH) determination 25.7 pg Low 27.0-32.0 [facility] Mean corpuscular hemoglobin concentration (MCHC) determinationOrdered By: Millie Massey on 07-30-2024 Mean corpuscular hemoglobin concentration (MCHC) determination 29.5 g/dL Low 32-36 [facility] Mean platelet volume determi nationOrdered By: Millie Massey on 07-30-2024 Mean platelet volume determination 9.0 fl 6.2-12.0 [facility] Platelet countOrdered By: Carter Massey on 07-30-2024 Platelets (Bld) [#/Vol] 213 10*3/uL 150-450 [facility] Platelet count 213 K/mm3 150-450 [facility] Potassium (Unsp spec) [Mass/ Vol]Ordered By: Millie Massey on 07-30-2024 Potassium measurement (mass/volume) 4.4 mmol/L 3.3-5.1 [facility] Potassium measurement (mass/ volume)Ordered By: Millie Massey on 07-30-2024 Potassium (Unsp spec) [Mass/Vol] 4.4 mmol/L 3.3-5.1 [facility] RBC Auto (Bld) [#/Vol]Ordere d By: Millie Massey on 07-30-2024 RBC (Bld) [#/Vol] 3.03 10*6/uL Low 4.2-5.4 [facility] Automated blood erythrocyte count 3.03 M/mm3 Low 4.2-5.4 [facility] Screening total cholesterol/ high density lipoprotein (HDL) cholesterol ratioOrdered By: Millie Massey on 07-30-2024 Screening total cholesterol/high density lipoprotein (HDL) cholesterol ratio 2.32 [facility] Serum creatinine measurement (mass/volume)Ordered By: Millie Massey on 07-30-2024 Creatinine [Mass/Vol] 1.47 mg/dL High 0.70-1.20 [facility] Serum glucose measurement (m ass/volume)Ordered By: Millie Massey on 07-30-2024 Glucose [Mass/Vol] 96 mg/dL 70-99 [facility] Serum or plasma calcium megan urement (mass/volume)Ordered By: Millie Massey on 07-30-2024 Calcium [Mass/Vol] 8.6 mg/dL 7.6-11.0 [facility] Serum or plasma cholesterol in HDL measurement (mass/volume)Ordered By: Millie Massey on 07-30-2024 Cholesterol in HDL [Mass/Vol] 22 mg/dL Low >40 [facility] Serum or plasma cholesterol measurement (mass/volume)Ordered By: Millie Massey on 07-30-2024 Cholesterol [Mass/Vol] 51 mg/dL <201 [facility] Serum or plasma urea nitroge n measurement (mass/volume)Ordered By: Millie Massey on 07-30-2024 Urea nitrogen [Mass/Vol] 38 mg/dL High 4-19 [facility] Sodium levelOrdered By: Silvana Massey on 07-30-2024 Sodium [Moles/Vol] 133 mmol/L 133-145 [facility] Sodium level 133 mmol/L 133-145 [facility] TSH DL <= 0.005 mIU/L QnOrde red By: Millie Massey on 07-30-2024 TSH Qn 0.578 uIU/mL 0.300-4.20 0 [facility] Serum or plasma thyroid stimulating hormone (TSH) measurement by high sensitivity met 0.578 uIU/mL 0.300-4.20 0 [facility] Thyroid Stim Hormone (TSH)on 07-30-2024 TSH 0.578 uIU/mL Normal 0.300-4.20 0 [facility] Comment on above: Order Comment: 103.2 Performed By: #### L 506.1001, L503.0106, L500.2500, L500.4100, L501.5200, L100.0500, L501.9520 ####[facility] [address] [place], [address] Triglycerides measurementOrd ered By: Millie Massey on 07-30-2024 Triglycerides measurement 82 mg/dL <199 [facility] Urea nitrogen [Mass/Vol]Orde red By: Millie Massey on 07-30-2024 Serum or plasma urea nitrogen measurement (mass/volume) 38 mg/dL High 4-19 [facility] Vitamin B12 ser/plasOrdered By: Millie Massey on 07-30-2024 Cobalamin (Vitamin B12) [Mass/Vol] 452 pg/mL 180-914 [facility] Vitamin D, 25-hydroxyOrdered By: Millieblanche Massey on 07-30-2024 Vitamin D, 25-hydroxy 27.8 ng/mL Low 30-100 [facility] White blood cell (WBC) count Ordered By: Millie Massey on 07-30-2024 WBC (Bld) [#/Vol] 10.8 10*3/uL 4.4-11.0 [facility] White blood cell (WBC) count 10.8 K/mm3 4.4-11.0 [facility] Anion gap [Moles/Vol]Ordered By: Remedios Kessler on 07-29-2024 Serum or plasma anion gap determination (moles/volume) 9 5-15 [facility] BUN/creatinine ratioOrdered By: Remedios Kessler on 07-29-2024 Urea nitrogen/Creatinine [Mass ratio] 26.5 mg/mg High 10-20 [facility] BUN/creatinine ratio 26.5 RATIO High 10-20 [facility] Basic Metabolic Profile (BMP )on 07-29-2024 Anion gap [Moles/Vol] 9 mmol/L Normal 5-15 [facility] Comment on above: Performed By: #### L 501.2300, L500.2500, L501.5200, L100.0500 ####[facility] [address] [place], [address] BUN/CRE 26.5 RATIO High 10-20 [facility] Comment on above: Performed By: #### L 501.2300, L500.2500, L501.5200, L100.0500 ####[facility] [address] [place], [address] Calcium [Mass/Vol] 8.5 mg/dL Normal 7.6-11.0 [facility] Comment on above: Performed By: #### L 501.2300, L500.2500, L501.5200, L100.0500 ####[facility] [address] [place], [address] Chloride [Moles/Vol] 95 mmol/L Low 96-108 [facility] Comment on above: Performed By: #### L 501.2300, L500.2500, L501.5200, L100.0500 ####[facility] [address] [place], [address] CO2 [Moles/Vol] 25.0 mmol/L Normal 22.0-29.0 [facility] Comment on above: Performed By: #### L 501.2300, L500.2500, L501.5200, L100.0500 ####[facility] [address] [place], [address] Creatinine [Mass/Vol] 1.88 mg/dL High 0.70-1.20 [facility] Comment on above: Performed By: #### L 501.2300, L500.2500, L501.5200, L100.0500 ####[facility] [address] [place], [address] ECRCL 19.59 ml/min Low 50-250 [facility] Comment on above: Performed By: #### L 501.2300, L500.2500, L501.5200, L100.0500 ####[facility] [address] [place], [address] GFR/1.73 sq M.predicted among non-blacks MDRD (S/P/Bld) [Vol rate/Area] 30 mL/min/{1.73_m2} Low >60 [facility] Comment on above: Result Comment: mL/m in/1.73m2 CKD-EPI Creatinine Equation (2020) Performed By: #### L 501.2300, L500.2500, L501.5200, L100.0500 ####[facility] [address] [place], [address] Glucose [Mass/Vol] 121 mg/dL High 70-99 [facility] Comment on above: Performed By: #### L 501.2300, L500.2500, L501.5200, L100.0500 ####[facility] [address] [place], [address] Potassium [Moles/Vol] 4.6 mmol/L Normal 3.3-5.1 [facility] Comment on above: Performed By: #### L 501.2300, L500.2500, L501.5200, L100.0500 ####[facility] [address] [place], [address] Sodium [Moles/Vol] 129 mmol/L Low 133-145 [facility] Comment on above: Performed By: #### L 501.2300, L500.2500, L501.5200, L100.0500 ####[facility] [address] [place], [address] Urea nitrogen [Mass/Vol] 50 mg/dL High 4-19 [facility] Comment on above: Performed By: #### L 501.2300, L500.2500, L501.5200, L100.0500 ####[facility] [address] [place], [address] CBC-Complete Blood Cnt No Di ffon 07-29-2024 Erythrocyte distribution width (RBC) [Ratio] 17.0 % High 11.6-14.6 [facility] Comment on above: Performed By: #### L 501.2300, L500.2500, L501.5200, L100.0500 ####[facility] [address] [place], [address] Hematocrit (Bld) [Volume fraction] 28.1 % Low 37-47 [facility] Comment on above: Performed By: #### L 501.2300, L500.2500, L501.5200, L100.0500 ####[facility] [address] [place], [address] Hemoglobin (Bld) [Mass/Vol] 8.3 g/dL Low 12.0-15.0 [facility] Comment on above: Performed By: #### L 501.2300, L500.2500, L501.5200, L100.0500 ####[facility] [address] [place], [address] MCH (RBC) [Entitic mass] 25.7 pg Low 27.0-32.0 [facility] Comment on above: Performed By: #### L 501.2300, L500.2500, L501.5200, L100.0500 ####[facility] [address] [place], [address] MCHC (RBC) [Mass/Vol] 29.5 g/dL Low 32-36 [facility] Comment on above: Performed By: #### L 501.2300, L500.2500, L501.5200, L100.0500 ####[facility] [address] [place], [address] MCV (RBC) [Entitic vol] 87.0 fL Normal 81-99 [facility] Comment on above: Performed By: #### L 501.2300, L500.2500, L501.5200, L100.0500 ####[facility] [address] [place], [address] Platelet mean volume (Bld) [Entitic vol] 9.3 fL Normal 6.2-12.0 [facility] Comment on above: Performed By: #### L 501.2300, L500.2500, L501.5200, L100.0500 ####[facility] [address] [place], [address] Platelets (Bld) [#/Vol] 222 10*3/uL Normal 150-450 [facility] Comment on above: Performed By: #### L 501.2300, L500.2500, L501.5200, L100.0500 ####[facility] [address] [place], [address] RBC (Bld) [#/Vol] 3.23 10*6/uL Low 4.2-5.4 [facility] Comment on above: Performed By: #### L 501.2300, L500.2500, L501.5200, L100.0500 ####[facility] [address] [place], [address] RDW SD 53.6 fl High 35.1-43.9 [facility] Comment on above: Performed By: #### L 501.2300, L500.2500, L501.5200, L100.0500 ####[facility] [address] [place], [address] WBC (Bld) [#/Vol] 13.8 10*3/uL High 4.4-11.0 [facility] Comment on above: Performed By: #### L 501.2300, L500.2500, L501.5200, L100.0500 ####[facility] [address] [place], [address] Calcium [Mass/Vol]Ordered By : Remedios Kessler on 07-29-2024 Serum or plasma calcium measurement (mass/volume) 8.5 mg/dL 7.6-11.0 [facility] Carbon dioxide measurementOr dered By: Remedios Kessler on 07-29-2024 CO2 [Moles/Vol] 25.0 mmol/L 22.0-29.0 [facility] Carbon dioxide measurement 25.0 mmol/L 22.0-29.0 [facility] Chloride measurementOrdered By: Remedios Kessler on 07-29-2024 Chloride [Moles/Vol] 95 mmol/L Low 96-108 [facility] Chloride measurement 95 mmol/L Low 96-108 [facility] Creatinine [Mass/Vol]Ordered By: Remedios Kessler on 07-29-2024 Serum creatinine measurement (mass/volume) 1.88 mg/dL High 0.70-1.20 [facility] Erythrocyte distribution wid th (RBC) [Ratio]Ordered By: Remedios Kessler on 07-29-2024 Erythrocyte distribution width ratio 17.0 % High 11.6-14.6 [facility] Erythrocyte distribution wid th ratioOrdered By: Remedios Kessler on 07-29-2024 Erythrocyte distribution width (RBC) [Ratio] 17.0 % High 11.6-14.6 [facility] Erythrocyte distribution wid th standard deviationOrdered By: Remedios Kessler on 07-29-2024 Erythrocyte distribution width (RBC) [Ratio] 53.6 fl High 35.1-43.9 [facility] Erythrocyte distribution width standard deviation 53.6 fl High 35.1-43.9 [facility] Estimation of creatinine austen aranceOrdered By: Remedios Kessler on 07-29-2024 Estimation of creatinine clearance 19.59 ml/min Low 50-250 [facility] GFR/1.73 sq M.predicted víctor g non-blacks MDRD (S/P/Bld) [Vol rate/Area]Ordered By: Remedios Kessler on 07-29-2024 Glomerular filtration rate (GFR) estimation/1.73 sq m using serum, plasma, or whole b 30 Low >60 [facility] Glomerular filtration rate ( GFR) estimation/1.73 sq m using serum, plasma, or whole bOrdered By: Remedios Kessler on 07-29-2024 GFR/1.73 sq M.predicted among non-blacks MDRD (S/P/Bld) [Vol rate/Area] 30 mL/min/{1.73_m2} Low >60 [facility] Glucose [Mass/Vol]Ordered By : Remedios Kessler on 07-29-2024 Serum glucose measurement (mass/volume) 121 mg/dL High 70-99 [facility] Hematocrit Auto (Bld) [Volum e fraction]Ordered By: Remedios Kessler on 07-29-2024 Hematocrit (Bld) [Volume fraction] 28.1 % Low 37-47 [facility] Automated blood hematocrit (percentage) 28.1 % Low 37-47 [facility] Hemoglobin measurementOrdere d By: Remedios Kessler on 07-29-2024 Hemoglobin (Bld) [Mass/Vol] 8.3 g/dL Low 12.0-15.0 [facility] Hemoglobin measurement 8.3 g/dL Low 12.0-15.0 [facility] MCV (RBC) [Entitic vol]Order ed By: Remedios Kessler on 07-29-2024 MCV (mean corpuscular volume) determination 87.0 fL 81-99 [facility] MCV (mean corpuscular volume ) determinationOrdered By: Remedios Kessler on 07-29-2024 MCV (RBC) [Entitic vol] 87.0 fL 81-99 [facility] Magnesiumon 07-29-2024 Magnesium [Mass/Vol] 1.8 mg/dL Normal 1.5-2.2 [facility] Comment on above: Performed By: #### L 501.2300, L500.2500, L501.5200, L100.0500 ####[facility] [address] [place], [place], [id number] Magnesium (Unsp spec) [Mass/ Vol]Ordered By: Remedios Kessler on 07-29-2024 Magnesium measurement (mass/volume) 1.8 mg/dL 1.5-2.2 [facility] Magnesium measurement (mass/ volume)Ordered By: Remedios Kessler on 07-29-2024 Magnesium (Unsp spec) [Mass/Vol] 1.8 mg/dL 1.5-2.2 [facility] Mean corpuscular hemoglobin (MCH) determinationOrdered By: Remedios Kessler on 07-29-2024 MCH (RBC) [Entitic mass] 25.7 pg Low 27.0-32.0 [facility] Mean corpuscular hemoglobin (MCH) determination 25.7 pg Low 27.0-32.0 [facility] Mean corpuscular hemoglobin concentration (MCHC) determinationOrdered By: Remedios Kessler on 07-29-2024 Mean corpuscular hemoglobin concentration (MCHC) determination 29.5 g/dL Low 32-36 [facility] Mean platelet volume determi nationOrdered By: Remedios Kessler on 07-29-2024 Mean platelet volume determination 9.3 fl 6.2-12.0 [facility] Phosphoruson 07-29-2024 Phosphate [Mass/Vol] 3.3 mg/dL Normal 2.7-4.5 [facility] Comment on above: Performed By: #### L 501.2300, L500.2500, L501.5200, L100.0500 ####[facility] [address] [place], [address] Platelet countOrdered By: Rip Kessler on 07-29-2024 Platelets (Bld) [#/Vol] 222 10*3/uL 150-450 [facility] Platelet count 222 K/mm3 150-450 [facility] Potassium [Moles/Vol]Ordered By: Remedios Kessler on 07-29-2024 Serum or plasma potassium measurement 4.6 mmol/L 3.3-5.1 [facility] RBC Auto (Bld) [#/Vol]Ordere d By: Remedios Kessler on 07-29-2024 RBC (Bld) [#/Vol] 3.23 10*6/uL Low 4.2-5.4 [facility] Automated blood erythrocyte count 3.23 M/mm3 Low 4.2-5.4 [facility] Serum creatinine measurement (mass/volume)Ordered By: Remedios Kessler on 07-29-2024 Creatinine [Mass/Vol] 1.88 mg/dL High 0.70-1.20 [facility] Serum glucose measurement (m ass/volume)Ordered By: Remedios Kessler on 07-29-2024 Glucose [Mass/Vol] 121 mg/dL High 70-99 [facility] Serum or plasma anion gap de termination (moles/volume)Ordered By: Remedios Kessler on 07-29-2024 Anion gap [Moles/Vol] 9 mmol/L 5-15 [facility] Serum or plasma calcium megan urement (mass/volume)Ordered By: Remedios Kessler on 07-29-2024 Calcium [Mass/Vol] 8.5 mg/dL 7.6-11.0 [facility] Serum or plasma potassium me asurementOrdered By: Remedios Kessler on 07-29-2024 Potassium [Moles/Vol] 4.6 mmol/L 3.3-5.1 [facility] Serum or plasma sodium measu rement (moles/volume)Ordered By: Remedios Kessler on 07-29-2024 Sodium [Moles/Vol] 129 mmol/L Low 133-145 [facility] Serum or plasma urea nitroge n measurement (mass/volume)Ordered By: Remedios Kessler on 07-29-2024 Urea nitrogen [Mass/Vol] 50 mg/dL High 4-19 [facility] Serum phosphorus measurement Ordered By: Remedios Kessler on 07-29-2024 Serum phosphorus measurement 3.3 mg/dL 2.7-4.5 [facility] Sodium [Moles/Vol]Ordered By : Remedios Kessler on 07-29-2024 Serum or plasma sodium measurement (moles/volume) 129 mmol/L Low 133-145 [facility] Urea nitrogen [Mass/Vol]Orde red By: Remedios Kessler on 07-29-2024 Serum or plasma urea nitrogen measurement (mass/volume) 50 mg/dL High 4-19 [facility] White blood cell (WBC) count Ordered By: Remedios Kessler on 07-29-2024 WBC (Bld) [#/Vol] 13.8 10*3/uL High 4.4-11.0 [facility] White blood cell (WBC) count 13.8 K/mm3 High 4.4-11.0 [facility] Absolute lymphocyte countOrd ered By: Remedios Kessler on 07-28-2024 Lymphocytes Auto (Unsp spec) [#/Vol] 0.41 10*3/uL Low 0.83-4.51 [facility] Absolute neutrophil countOrd ered By: Remedios Kessler on 07-28-2024 Absolute neutrophil count 14.2 X10^3/uL High 2.0-7.7 [facility] Automated lymphocyte count a s percentage of total leukocytesOrdered By: Remedios Kessler on 07-28-2024 Lymphocytes/100 WBC Auto (Unsp spec) 2.6 % Low 19-41 [facility] Basic Metabolic Profile (BMP )on 07-28-2024 Anion gap [Moles/Vol] 9 mmol/L Normal 5-15 [facility] Comment on above: Performed By: #### L 501.5200, L501.2300, L100.0100, L500.2500 ####[facility] [address] [place], [address] BUN/CRE 22.8 RATIO High 10-20 [facility] Comment on above: Performed By: #### L 501.5200, L501.2300, L100.0100, L500.2500 ####[facility] [address] [place], [address] Calcium [Mass/Vol] 8.8 mg/dL Normal 7.6-11.0 [facility] Comment on above: Performed By: #### L 501.5200, L501.2300, L100.0100, L500.2500 ####[facility] [address] [place], [address] Chloride [Moles/Vol] 98 mmol/L Normal 96-108 [facility] Comment on above: Performed By: #### L 501.5200, L501.2300, L100.0100, L500.2500 ####[facility] [address] [place], [address] CO2 [Moles/Vol] 22.8 mmol/L Normal 22.0-29.0 [facility] Comment on above: Performed By: #### L 501.5200, L501.2300, L100.0100, L500.2500 ####[facility] [address] [place], [address] Creatinine [Mass/Vol] 1.74 mg/dL High 0.70-1.20 [facility] Comment on above: Performed By: #### L 501.5200, L501.2300, L100.0100, L500.2500 ####[facility] [address] [place], [address] ECRCL 21.17 ml/min Low 50-250 [facility] Comment on above: Performed By: #### L 501.5200, L501.2300, L100.0100, L500.2500 ####[facility] [address] [place], [address] GFR/1.73 sq M.predicted among non-blacks MDRD (S/P/Bld) [Vol rate/Area] 33 mL/min/{1.73_m2} Low >60 [facility] Comment on above: Result Comment: mL/m in/1.73m2 CKD-EPI Creatinine Equation (2020) Performed By: #### L 501.5200, L501.2300, L100.0100, L500.2500 ####[facility] [address] [place], [address] Glucose [Mass/Vol] 69 mg/dL Low 70-99 [facility] Comment on above: Performed By: #### L 501.5200, L501.2300, L100.0100, L500.2500 ####[facility] [address] [place], [address] Potassium [Moles/Vol] 4.4 mmol/L Normal 3.3-5.1 [facility] Comment on above: Result Comment: Hemo lysis present, Results??could be affected.?? Performed By: #### L 501.5200, L501.2300, L100.0100, L500.2500 ####[facility] [address] [place], [address] Sodium [Moles/Vol] 130 mmol/L Low 133-145 [facility] Comment on above: Performed By: #### L 501.5200, L501.2300, L100.0100, L500.2500 ####[facility] [address] [place], [address] Urea nitrogen [Mass/Vol] 40 mg/dL High 4-19 [facility] Comment on above: Performed By: #### L 501.5200, L501.2300, L100.0100, L500.2500 ####[facility] [address] [place], [address] Basophil percentageOrdered B y: Remedios Kessler on 07-28-2024 Basophils/100 WBC (Bld) 0.2 % 0-1 [facility] Basophil percentage 0.2 % 0-1 [facility] CBC W/Diff, Automatedon Absolute Lymph 0.41 X10 3/uL Low 0.83-4.51 [facility] Comment on above: Performed By: #### L 501.5200, L501.2300, L100.0100, L500.2500 ####[facility] [address] [place], [address] Absolute Neut 14.2 X10 3/uL High 2.0-7.7 [facility] Comment on above: Performed By: #### L 501.5200, L501.2300, L100.0100, L500.2500 ####[facility] [address] [place], [address] Basophils/100 WBC (Bld) 0.2 % Normal 0-1 [facility] Comment on above: Performed By: #### L 501.5200, L501.2300, L100.0100, L500.2500 ####[facility] [address] [place], [address] Eosinophils/100 WBC (Bld) 0.4 % Normal 0-5 [facility] Comment on above: Performed By: #### L 501.5200, L501.2300, L100.0100, L500.2500 ####[facility] [address] [place], [address] Erythrocyte distribution width (RBC) [Ratio] 17.2 % High 11.6-14.6 [facility] Comment on above: Performed By: #### L 501.5200, L501.2300, L100.0100, L500.2500 ####[facility] [address] [place], [address] Hematocrit (Bld) [Volume fraction] 32.2 % Low 37-47 [facility] Comment on above: Performed By: #### L 501.5200, L501.2300, L100.0100, L500.2500 ####[facility] [address] [place], [address] Hemoglobin (Bld) [Mass/Vol] 9.6 g/dL Low 12.0-15.0 [facility] Comment on above: Performed By: #### L 501.5200, L501.2300, L100.0100, L500.2500 ####[facility] [address] [place], [address] IG% 1.700 High 0.0-0.9 [facility] Comment on above: Result Comment: IG% - Immature Granulocytes (promyelocytes, myelocytes andmetamyelocytes) > 1% indicates that a LEFT SHIFT is Present. Performed By: #### L 501.5200, L501.2300, L100.0100, L500.2500 ####[facility] [address] [place], [address] Lymphocytes/100 WBC (Bld) 2.6 % Low 19-41 [facility] Comment on above: Performed By: #### L 501.5200, L501.2300, L100.0100, L500.2500 ####[facility] [address] [place], [address] MCH (RBC) [Entitic mass] 25.7 pg Low 27.0-32.0 [facility] Comment on above: Performed By: #### L 501.5200, L501.2300, L100.0100, L500.2500 ####[facility] [address] [place], [address] MCHC (RBC) [Mass/Vol] 29.8 g/dL Low 32-36 [facility] Comment on above: Performed By: #### L 501.5200, L501.2300, L100.0100, L500.2500 ####[facility] [id number] [place], [address] MCV (RBC) [Entitic vol] 86.3 fL Normal 81-99 [facility] Comment on above: Performed By: #### L 501.5200, L501.2300, L100.0100, L500.2500 ####[facility] [id number] [place], [address] Monocytes/100 WBC (Bld) 4.2 % Normal 0-10 [facility] Comment on above: Performed By: #### L 501.5200, L501.2300, L100.0100, L500.2500 ####[facility] [id number] [place], [address] Neutrophils/100 WBC (Bld) 90.9 % High 47-70 [facility] Comment on above: Performed By: #### L 501.5200, L501.2300, L100.0100, L500.2500 ####[facility] [address] [place], [address] Nucleated RBC (Bld) [#/Vol] 0 10*3/uL Normal 0-5 [facility] Comment on above: Performed By: #### L 501.5200, L501.2300, L100.0100, L500.2500 ####[facility] [address] [place], [address] Platelet mean volume (Bld) [Entitic vol] 8.3 fL Normal 6.2-12.0 [facility] Comment on above: Performed By: #### L 501.5200, L501.2300, L100.0100, L500.2500 ####[facility] [address] [place], [address] Platelets (Bld) [#/Vol] 217 10*3/uL Normal 150-450 [facility] Comment on above: Performed By: #### L 501.5200, L501.2300, L100.0100, L500.2500 ####[facility] [address] [place], [address] RBC (Bld) [#/Vol] 3.73 10*6/uL Low 4.2-5.4 [facility] Comment on above: Performed By: #### L 501.5200, L501.2300, L100.0100, L500.2500 ####[facility] [address] [place], [address] RDW SD 53.4 fl High 35.1-43.9 [facility] Comment on above: Performed By: #### L 501.5200, L501.2300, L100.0100, L500.2500 ####[facility] [address] [place], [address] WBC (Bld) [#/Vol] 15.6 10*3/uL High 4.4-11.0 [facility] Comment on above: Performed By: #### L 501.5200, L501.2300, L100.0100, L500.2500 ####[facility] [address] [place], [address] Eosinophil percentageOrdered By: Remedios Kessler on 07-28-2024 Eosinophils/100 WBC (Bld) 0.4 % 0-5 [facility] Eosinophil percentage 0.4 % 0-5 [facility] Immature granulocytes/100 WB C Auto (Bld)Ordered By: Remedios Kessler on 07-28-2024 Immature granulocytes/100 WBC (Bld) 1.700 % High 0.0-0.9 [facility] Automated immature granulocyte percentage 1.700 % High 0.0-0.9 [facility] Lymphocytes Auto (Unsp spec) [#/Vol]Ordered By: Remedios Kessler on 07-28-2024 Absolute lymphocyte count 0.41 X10^3/uL Low 0.83-4.51 [facility] Lymphocytes/100 WBC Auto (Un sp spec)Ordered By: Remedios Kessler on 07-28-2024 Automated lymphocyte count as percentage of total leukocytes 2.6 % Low 19-41 [facility] Magnesiumon 07-28-2024 Magnesium [Mass/Vol] 2.0 mg/dL Normal 1.5-2.2 [facility] Comment on above: Performed By: #### L 501.5200, L501.2300, L100.0100, L500.2500 ####[facility] [address] [place], [address] Monocyte percentageOrdered B y: Remedios Kessler on 07-28-2024 Monocytes/100 WBC (Bld) 4.2 % 0-10 [facility] Monocyte percentage 4.2 % 0-10 [facility] Neutrophil percentageOrdered By: Remedios Kessler on 07-28-2024 Neutrophils/100 WBC (Bld) 90.9 % High 47-70 [facility] Neutrophil percentage 90.9 % High 47-70 [facility] Nucleated red blood cell per centageOrdered By: Remedios Kessler on 07-28-2024 Nucleated red blood cell percentage 0 % 0-5 [facility] Phosphoruson 07-28-2024 Phosphate [Mass/Vol] 3.4 mg/dL Normal 2.7-4.5 [facility] Comment on above: Performed By: #### L 501.5200, L501.2300, L100.0100, L500.2500 ####[facility] [address] [place], [address] Basic Metabolic Profile (BMP )on 07-27-2024 Anion gap [Moles/Vol] 9 mmol/L Normal 5-15 [facility] Comment on above: Performed By: #### L 500.2500, L501.5200, L100.0100, L501.2300 ####[facility] [address] [place], [address] BUN/CRE 21.0 RATIO High 10-20 [facility] Comment on above: Performed By: #### L 500.2500, L501.5200, L100.0100, L501.2300 ####[facility] [address] [place], [address] Calcium [Mass/Vol] 8.9 mg/dL Normal 7.6-11.0 [facility] Comment on above: Performed By: #### L 500.2500, L501.5200, L100.0100, L501.2300 ####[facility] [address] [place], [address] Chloride [Moles/Vol] 98 mmol/L Normal 96-108 [facility] Comment on above: Performed By: #### L 500.2500, L501.5200, L100.0100, L501.2300 ####[facility] [address] [place], [address] CO2 [Moles/Vol] 23.8 mmol/L Normal 22.0-29.0 [facility] Comment on above: Performed By: #### L 500.2500, L501.5200, L100.0100, L501.2300 ####[facility] [address] [place], [address] Creatinine [Mass/Vol] 1.40 mg/dL High 0.70-1.20 [facility] Comment on above: Performed By: #### L 500.2500, L501.5200, L100.0100, L501.2300 ####[facility] [address] [place], [address] ECRCL 26.31 ml/min Normal [facility] Comment on above: Performed By: #### L 500.2500, L501.5200, L100.0100, L501.2300 ####[facility] [address] [place], [address] GFR/1.73 sq M.predicted among non-blacks MDRD (S/P/Bld) [Vol rate/Area] 43 mL/min/{1.73_m2} Low >60 [facility] Comment on above: Result Comment: mL/m in/1.73m2 CKD-EPI Creatinine Equation (2020) Performed By: #### L 500.2500, L501.5200, L100.0100, L501.2300 ####[facility] [address] [place], [address] Glucose [Mass/Vol] 89 mg/dL Normal 70-99 [facility] Comment on above: Performed By: #### L 500.2500, L501.5200, L100.0100, L501.2300 ####[facility] [address] [place], [address] Potassium [Moles/Vol] 3.8 mmol/L Normal 3.3-5.1 [facility] Comment on above: Performed By: #### L 500.2500, L501.5200, L100.0100, L501.2300 ####[facility] [address] [place], [address] Sodium [Moles/Vol] 130 mmol/L Low 133-145 [facility] Comment on above: Performed By: #### L 500.2500, L501.5200, L100.0100, L501.2300 ####[facility] [address] [place], [address] Urea nitrogen [Mass/Vol] 29 mg/dL High 4-19 [facility] Comment on above: Performed By: #### L 500.2500, L501.5200, L100.0100, L501.2300 ####[facility] [address] [place], [address] CBC W/Diff, Automatedon 03-0 -2024 Absolute Lymph 0.63 X10 3/uL Low 0.83-4.51 [facility] Comment on above: Performed By: #### L 500.2500, L501.5200, L100.0100, L501.2300 ####[facility] [address] [place], [address] Absolute Neut 18.1 X10 3/uL High 2.0-7.7 [facility] Comment on above: Performed By: #### L 500.2500, L501.5200, L100.0100, L501.2300 ####[facility] [address] [place], [address] Basophils/100 WBC (Bld) 0.2 % Normal 0-1 [facility] Comment on above: Performed By: #### L 500.2500, L501.5200, L100.0100, L501.2300 ####[facility] [address] [place], [address] Eosinophils/100 WBC (Bld) 0.3 % Normal 0-5 [facility] Comment on above: Performed By: #### L 500.2500, L501.5200, L100.0100, L501.2300 ####[facility] [address] [place], [address] Erythrocyte distribution width (RBC) [Ratio] 17.2 % High 11.6-14.6 [facility] Comment on above: Performed By: #### L 500.2500, L501.5200, L100.0100, L501.2300 ####[facility] [address] [place], [address] Hematocrit (Bld) [Volume fraction] 30.9 % Low 37-47 [facility] Comment on above: Performed By: #### L 500.2500, L501.5200, L100.0100, L501.2300 ####[facility] [address] [place], [address] Hemoglobin (Bld) [Mass/Vol] 9.2 g/dL Low 12.0-15.0 [facility] Comment on above: Performed By: #### L 500.2500, L501.5200, L100.0100, L501.2300 ####[facility] [address] [place], [address] IG% 1.400 High 0.0-0.9 [facility] Comment on above: Result Comment: IG% - Immature Granulocytes (promyelocytes, myelocytes andmetamyelocytes) > 1% indicates that a LEFT SHIFT is Present. Performed By: #### L 500.2500, L501.5200, L100.0100, L501.2300 ####[facility] [address] [place], [address] Lymphocytes/100 WBC (Bld) 3.2 % Low 19-41 [facility] Comment on above: Performed By: #### L 500.2500, L501.5200, L100.0100, L501.2300 ####[facility] [address] [place], [address] MCH (RBC) [Entitic mass] 26.1 pg Low 27.0-32.0 [facility] Comment on above: Performed By: #### L 500.2500, L501.5200, L100.0100, L501.2300 ####[facility] [address] [place], [address] MCHC (RBC) [Mass/Vol] 29.8 g/dL Low 32-36 [facility] Comment on above: Performed By: #### L 500.2500, L501.5200, L100.0100, L501.2300 ####[facility] [address] [place], [address] MCV (RBC) [Entitic vol] 87.5 fL Normal 81-99 [facility] Comment on above: Performed By: #### L 500.2500, L501.5200, L100.0100, L501.2300 ####[facility] [address] [place], [address] Monocytes/100 WBC (Bld) 4.5 % Normal 0-10 [facility] Comment on above: Performed By: #### L 500.2500, L501.5200, L100.0100, L501.2300 ####[facility] [address] [place], [address] Neutrophils/100 WBC (Bld) 90.4 % High 47-70 [facility] Comment on above: Performed By: #### L 500.2500, L501.5200, L100.0100, L501.2300 ####[facility] [address] [place], [address] Nucleated RBC (Bld) [#/Vol] 0 10*3/uL Normal 0-5 [facility] Comment on above: Performed By: #### L 500.2500, L501.5200, L100.0100, L501.2300 ####[facility] [address] [place], [address] Platelet mean volume (Bld) [Entitic vol] 8.8 fL Normal 6.2-12.0 [facility] Comment on above: Performed By: #### L 500.2500, L501.5200, L100.0100, L501.2300 ####[facility] [address] [place], [address] Platelets (Bld) [#/Vol] 265 10*3/uL Normal 150-450 [facility] Comment on above: Performed By: #### L 500.2500, L501.5200, L100.0100, L501.2300 ####[facility] [address] [place], [address] RBC (Bld) [#/Vol] 3.53 10*6/uL Low 4.2-5.4 [facility] Comment on above: Performed By: #### L 500.2500, L501.5200, L100.0100, L501.2300 ####[facility] [address] [place], [address] RDW SD 53.9 fl High 35.1-43.9 [facility] Comment on above: Performed By: #### L 500.2500, L501.5200, L100.0100, L501.2300 ####[facility] [address] [place], [address] WBC (Bld) [#/Vol] 20.0 10*3/uL High 4.4-11.0 [facility] Comment on above: Performed By: #### L 500.2500, L501.5200, L100.0100, L501.2300 ####[facility] [address] [place], [address] Magnesiumon 07-27-2024 Magnesium [Mass/Vol] 1.9 mg/dL Normal 1.5-2.2 [facility] Comment on above: Performed By: #### L 500.2500, L501.5200, L100.0100, L501.2300 ####[facility] [address] [place], [address] Phosphoruson 07-27-2024 Phosphate [Mass/Vol] 3.6 mg/dL Normal 2.7-4.5 [facility] Comment on above: Performed By: #### L 500.2500, L501.5200, L100.0100, L501.2300 ####[facility] [address] [place], [address] Basic Metabolic Profile (BMP )on 07-26-2024 Anion gap [Moles/Vol] 10 mmol/L Normal 5-15 [facility] Comment on above: Performed By: #### L 501.2300, L500.2500, L501.5200 ####[facility] [address] [place], [address] BUN/CRE 19.9 RATIO Normal 10-20 [facility] Comment on above: Performed By: #### L 501.2300, L500.2500, L501.5200 ####[facility] [address] [place], [address] Calcium [Mass/Vol] 8.6 mg/dL Normal 7.6-11.0 [facility] Comment on above: Performed By: #### L 501.2300, L500.2500, L501.5200 ####[facility] [address] [place], [address] Chloride [Moles/Vol] 98 mmol/L Normal 96-108 [facility] Comment on above: Performed By: #### L 501.2300, L500.2500, L501.5200 ####[facility] [address] [place], [address] CO2 [Moles/Vol] 22.9 mmol/L Normal 22.0-29.0 [facility] Comment on above: Performed By: #### L 501.2300, L500.2500, L501.5200 ####[facility] [address] [place], [address] Creatinine [Mass/Vol] 1.60 mg/dL High 0.70-1.20 [facility] Comment on above: Performed By: #### L 501.2300, L500.2500, L501.5200 ####[facility] [address] [place], [address] ECRCL 23.88 ml/min Normal [facility] Comment on above: Performed By: #### L 501.2300, L500.2500, L501.5200 ####[facility] [address] [place], [address] GFR/1.73 sq M.predicted among non-blacks MDRD (S/P/Bld) [Vol rate/Area] 36 mL/min/{1.73_m2} Low >60 [facility] Comment on above: Result Comment: mL/m in/1.73m2 CKD-EPI Creatinine Equation (2020) Performed By: #### L 501.2300, L500.2500, L501.5200 ####[facility] [address] [place], [address] Glucose [Mass/Vol] 66 mg/dL Low 70-99 [facility] Comment on above: Performed By: #### L 501.2300, L500.2500, L501.5200 ####[facility] [address] [place], [address] Potassium [Moles/Vol] 4.1 mmol/L Normal 3.3-5.1 [facility] Comment on above: Result Comment: Hemo lysis present, Results??could be affected.?? Performed By: #### L 501.2300, L500.2500, L501.5200 ####[facility] [address] [place], [address] Sodium [Moles/Vol] 131 mmol/L Low 133-145 [facility] Comment on above: Performed By: #### L 501.2300, L500.2500, L501.5200 ####[facility] [address] [place], [address] Urea nitrogen [Mass/Vol] 32 mg/dL High 4-19 [facility] Comment on above: Performed By: #### L 501.2300, L500.2500, L501.5200 ####[facility] [address] [place], [address] Magnesiumon 07-26-2024 Magnesium [Mass/Vol] 1.9 mg/dL Normal 1.5-2.2 [facility] Comment on above: Performed By: #### L 501.2300, L500.2500, L501.5200 ####[facility] [address] [place], [address] Phosphoruson 07-26-2024 Phosphate [Mass/Vol] 3.9 mg/dL Normal 2.7-4.5 [facility] Comment on above: Performed By: #### L 501.2300, L500.2500, L501.5200 ####[facility] [address] [place], [address] Wound Cultureon 07-26-2024 WC left lower abdomen No growth aerobically. Normal [facility] Comment on above: Performed By: #### M 100.2000, M100.3000, L8200.1075 ####[facility] [address] [place], [address] Basic Metabolic Profile (BMP )on 07-25-2024 Anion gap [Moles/Vol] 11 mmol/L Normal 5-15 [facility] Comment on above: Performed By: #### L 501.5200, L100.0500, L501.2300, L500.2500 ####[facility] [address] [place], [address] BUN/CRE 20.2 RATIO High 10-20 [facility] Comment on above: Performed By: #### L 501.5200, L100.0500, L501.2300, L500.2500 ####[facility] [address] [place], [address] Calcium [Mass/Vol] 8.4 mg/dL Normal 7.6-11.0 [facility] Comment on above: Performed By: #### L 501.5200, L100.0500, L501.2300, L500.2500 ####[facility] [address] [place], [address] Chloride [Moles/Vol] 101 mmol/L Normal 96-108 [facility] Comment on above: Performed By: #### L 501.5200, L100.0500, L501.2300, L500.2500 ####[facility] [address] [place], [address] CO2 [Moles/Vol] 23.9 mmol/L Normal 22.0-29.0 [facility] Comment on above: Performed By: #### L 501.5200, L100.0500, L501.2300, L500.2500 ####[facility] [address] [place], [address] Creatinine [Mass/Vol] 2.1 mg/dL High 0.6-1.0 [facility] Comment on above: Performed By: #### L 501.5200, L100.0500, L501.2300, L500.2500 ####[facility] [address] [place], [address] ECRCL 19.07 ml/min Normal [facility] Comment on above: Performed By: #### L 501.5200, L100.0500, L501.2300, L500.2500 ####[facility] [address] [place], [address] GFR/1.73 sq M.predicted among non-blacks MDRD (S/P/Bld) [Vol rate/Area] 26 mL/min/{1.73_m2} Low >60 [facility] Comment on above: Result Comment: mL/m in/1.73m2 CKD-EPI Creatinine Equation (2020) Performed By: #### L 501.5200, L100.0500, L501.2300, L500.2500 ####[facility] [address] [place], [address] Glucose [Mass/Vol] 101 mg/dL High 70-99 [facility] Comment on above: Performed By: #### L 501.5200, L100.0500, L501.2300, L500.2500 ####[facility] [address] [place], [address] Potassium [Moles/Vol] 4.1 mmol/L Normal 3.3-5.1 [facility] Comment on above: Performed By: #### L 501.5200, L100.0500, L501.2300, L500.2500 ####[facility] [address] [place], [address] Sodium [Moles/Vol] 136 mmol/L Normal 133-145 [facility] Comment on above: Performed By: #### L 501.5200, L100.0500, L501.2300, L500.2500 ####[facility] [address] [place], [address] Urea nitrogen [Mass/Vol] 43 mg/dL High 4-19 [facility] Comment on above: Performed By: #### L 501.5200, L100.0500, L501.2300, L500.2500 ####[facility] [address] [place], [address] CBC-Complete Blood Cnt No Di ffon 07-25-2024 Erythrocyte distribution width (RBC) [Ratio] 17.2 % High 11.6-14.6 [facility] Comment on above: Performed By: #### L 501.5200, L100.0500, L501.2300, L500.2500 ####[facility] [address] [place], [address] Hematocrit (Bld) [Volume fraction] 27.3 % Low 37-47 [facility] Comment on above: Performed By: #### L 501.5200, L100.0500, L501.2300, L500.2500 ####[facility] [address] [place], [address] Hemoglobin (Bld) [Mass/Vol] 8.2 g/dL Low 12.0-15.0 [facility] Comment on above: Performed By: #### L 501.5200, L100.0500, L501.2300, L500.2500 ####[facility] [address] [place], [address] MCH (RBC) [Entitic mass] 26.5 pg Low 27.0-32.0 [facility] Comment on above: Performed By: #### L 501.5200, L100.0500, L501.2300, L500.2500 ####[facility] [address] [place], [address] MCHC (RBC) [Mass/Vol] 30.0 g/dL Low 32-36 [facility] Comment on above: Performed By: #### L 501.5200, L100.0500, L501.2300, L500.2500 ####[facility] [address] [place], [address] MCV (RBC) [Entitic vol] 88.1 fL Normal 81-99 [facility] Comment on above: Performed By: #### L 501.5200, L100.0500, L501.2300, L500.2500 ####[facility] [address] [place], [address] Platelet mean volume (Bld) [Entitic vol] 8.8 fL Normal 6.2-12.0 [facility] Comment on above: Performed By: #### L 501.5200, L100.0500, L501.2300, L500.2500 ####[facility] [address] [place], [address] Platelets (Bld) [#/Vol] 317 10*3/uL Normal 150-450 [facility] Comment on above: Performed By: #### L 501.5200, L100.0500, L501.2300, L500.2500 ####[facility] [address] [place], [address] RBC (Bld) [#/Vol] 3.10 10*6/uL Low 4.2-5.4 [facility] Comment on above: Performed By: #### L 501.5200, L100.0500, L501.2300, L500.2500 ####[facility] [address] [place], [address] RDW SD 55.3 fl High 35.1-43.9 [facility] Comment on above: Performed By: #### L 501.5200, L100.0500, L501.2300, L500.2500 ####[facility] [address] [place], [address] WBC (Bld) [#/Vol] 10.8 10*3/uL Normal 4.4-11.0 [facility] Comment on above: Performed By: #### L 501.5200, L100.0500, L501.2300, L500.2500 ####[facility] [address] [place], [address] Gram Stainon 07-25-2024 GS left lower abdomen Gram Stain No organisms seen No cells seen Normal [facility] Comment on above: Performed By: #### M 100.2000, M100.3000, L8200.1075 ####[facility] [address] [place], [address] Gram stainOrdered By: Panda Kessler on 07-25-2024 Microscopic observation Gram stain Nom (Unsp spec) [facility] MRSA Wound DNA by PCRon 06-30 MRSA DNA ASSAY Negative Normal Negative [facility] Comment on above: Order Comment: left lower abdomen Performed By: #### M 100.2000, M100.3000, L8200.1075 ####[facility] [address] [place], [address] SA DNA ASSAY Negative Normal Negative [facility] Comment on above: Order Comment: left lower abdomen Performed By: #### M 100.2000, M100.3000, L8200.1075 ####[facility] [address] [place], [address] MRSA detection PCROrdered By : Remedios Kessler on 07-25-2024 MRSA detection PCR Negative Negative [facility] Magnesiumon 07-25-2024 Magnesium [Mass/Vol] 1.9 mg/dL Normal 1.5-2.2 [facility] Comment on above: Performed By: #### L 501.5200, L100.0500, L501.2300, L500.2500 ####[facility] [id number] [place], [address] Phosphoruson 07-25-2024 Phosphate [Mass/Vol] 4.9 mg/dL High 2.7-4.5 [facility] Comment on above: Performed By: #### L 501.5200, L100.0500, L501.2300, L500.2500 ####[facility] [id number], [address] Routine wound cultureOrdered By: Remedios Kessler on 07-25-2024 Routine wound culture No growth aerobically. [facility] Staphylococcus aureus DNA de tection by probe and target amplification methodOrdered By: Remedios Kessler on 07-25-2024 S. aureus DNA MOISES+probe Ql (Unsp spec) Negative Negative [facility] ALP [Catalytic activity/Vol] Ordered By: Judd Galvin on 07-24-2024 Serum or plasma alkaline phosphatase measurement 45 U/L 35-104 [facility] ALT [Catalytic activity/Vol] Ordered By: Judd Galvin on 07-24-2024 Serum or plasma alanine aminotransferase (ALT) measurement 9 U/L <35 [facility] Albumin [Mass/Vol]Ordered By : Judd Galvin on 07-24-2024 Serum or plasma albumin measurement (mass/volume) 2.4 g/dL Low 3.4-4.8 [facility] Albumin/Globulin [Mass ratio ]Ordered By: Judd Galvin on 07-24-2024 Serum or plasma albumin/globulin mass ratio 0.7 RATIO Low 0.9-2.4 [facility] Bilirubin, totalOrdered By: Judd Galvin on 07-24-2024 Bilirubin [Mass/Vol] 0.32 mg/dL 0.00-1.30 [facility] Bilirubin, total 0.32 mg/dL 0.00-1.30 [facility] CBC W/Diff, Automatedon 06-30 Absolute Lymph 0.57 X10 3/uL Low 0.83-4.51 [facility] Comment on above: Performed By: #### L 500.4050, L100.0100 ####[facility] [id number] [place], [address] Absolute Neut 11.6 X10 3/uL High 2.0-7.7 [facility] Comment on above: Performed By: #### L 500.4050, L100.0100 ####[facility] [address] [place], [address] Basophils/100 WBC (Bld) 0.3 % Normal 0-1 [facility] Comment on above: Performed By: #### L 500.4050, L100.0100 ####[facility] [address] [place], [address] Eosinophils/100 WBC (Bld) 0.4 % Normal 0-5 [facility] Comment on above: Performed By: #### L 500.4050, L100.0100 ####[facility] [address] [place], [address] Erythrocyte distribution width (RBC) [Ratio] 17.2 % High 11.6-14.6 [facility] Comment on above: Performed By: #### L 500.4050, L100.0100 ####[facility] [address] [place], [address] Hematocrit (Bld) [Volume fraction] 29.6 % Low 37-47 [facility] Comment on above: Performed By: #### L 500.4050, L100.0100 ####[facility] [address] [place], [address] Hemoglobin (Bld) [Mass/Vol] 8.8 g/dL Low 12.0-15.0 [facility] Comment on above: Performed By: #### L 500.4050, L100.0100 ####[facility] [address] [place], [address] IG% 1.700 High 0.0-0.9 [facility] Comment on above: Result Comment: IG% - Immature Granulocytes (promyelocytes, myelocytes andmetamyelocytes) > 1% indicates that a LEFT SHIFT is Present. Performed By: #### L 500.4050, L100.0100 ####[facility] [address] [place], [address] Lymphocytes/100 WBC (Bld) 4.3 % Low 19-41 [facility] Comment on above: Performed By: #### L 500.4050, L100.0100 ####[facility] [address] [place], [address] MCH (RBC) [Entitic mass] 26.5 pg Low 27.0-32.0 [facility] Comment on above: Performed By: #### L 500.4050, L100.0100 ####[facility] [address] [place], [address] MCHC (RBC) [Mass/Vol] 29.7 g/dL Low 32-36 [facility] Comment on above: Performed By: #### L 500.4050, L100.0100 ####[facility] [address] [place], [address] MCV (RBC) [Entitic vol] 89.2 fL Normal 81-99 [facility] Comment on above: Performed By: #### L 500.4050, L100.0100 ####[facility] [address] [place], [address] Monocytes/100 WBC (Bld) 6.6 % Normal 0-10 [facility] Comment on above: Performed By: #### L 500.4050, L100.0100 ####[facility] [address] [place], [address] Neutrophils/100 WBC (Bld) 86.7 % High 47-70 [facility] Comment on above: Performed By: #### L 500.4050, L100.0100 ####[facility] [address] [place], [address] Nucleated RBC (Bld) [#/Vol] 0.1 10*3/uL Normal 0-5 [facility] Comment on above: Performed By: #### L 500.4050, L100.0100 ####[facility] [address] [place], [address] Platelet mean volume (Bld) [Entitic vol] 8.4 fL Normal 6.2-12.0 [facility] Comment on above: Performed By: #### L 500.4050, L100.0100 ####[facility] [address] [place], [address] Platelets (Bld) [#/Vol] 303 10*3/uL Normal 150-450 [facility] Comment on above: Performed By: #### L 500.4050, L100.0100 ####[facility] [address] [place], [address] RBC (Bld) [#/Vol] 3.32 10*6/uL Low 4.2-5.4 [facility] Comment on above: Performed By: #### L 500.4050, L100.0100 ####[facility] [address] [place], [address] RDW SD 55.6 fl High 35.1-43.9 [facility] Comment on above: Performed By: #### L 500.4050, L100.0100 ####[facility] [address] [place], [address] WBC (Bld) [#/Vol] 13.4 10*3/uL High 4.4-11.0 [facility] Comment on above: Performed By: #### L 500.4050, L100.0100 ####[facility] [address] [place], [address] Comprehensive Metabolic Prof ilon 07-24-2024 Albumin [Mass/Vol] 2.4 g/dL Low 3.4-4.8 [facility] Comment on above: Performed By: #### L 500.4050, L100.0100 ####[facility] [address] [place], [address] Albumin/Globulin [Mass ratio] 0.7 {ratio} Low 0.9-2.4 [facility] Comment on above: Performed By: #### L 500.4050, L100.0100 ####[facility] [address] [place], [address] ALK PHOS 45 U/L Normal 35-104 [facility] Comment on above: Performed By: #### L 500.4050, L100.0100 ####[facility] [address] [place], [address] ALT [Catalytic activity/Vol] 9 U/L Normal <=34 [facility] Comment on above: Performed By: #### L 500.4050, L100.0100 ####[facility] [address] [place], [address] Anion gap [Moles/Vol] 10 mmol/L Normal 5-15 [facility] Comment on above: Performed By: #### L 500.4050, L100.0100 ####[facility] [address] [place], [address] AST [Catalytic activity/Vol] 20 U/L Normal <=31 [facility] Comment on above: Performed By: #### L 500.4050, L100.0100 ####[facility] [address] [place], [address] Bilirubin [Mass/Vol] 0.32 mg/dL Normal 0.00-1.30 [facility] Comment on above: Performed By: #### L 500.4050, L100.0100 ####[facility] [address] [place], [address] BUN/CRE 19.3 RATIO Normal 10-20 [facility] Comment on above: Performed By: #### L 500.4050, L100.0100 ####[facility] [address] [place], [address] Calcium [Mass/Vol] 8.7 mg/dL Normal 7.6-11.0 [facility] Comment on above: Performed By: #### L 500.4050, L100.0100 ####[facility] [address] [place], [address] Chloride [Moles/Vol] 100 mmol/L Normal 96-108 [facility] Comment on above: Performed By: #### L 500.4050, L100.0100 ####[facility] [address] [place], [address] CO2 [Moles/Vol] 26.3 mmol/L Normal 22.0-29.0 [facility] Comment on above: Performed By: #### L 500.4050, L100.0100 ####[facility] [address] [place], [address] Creatinine [Mass/Vol] 1.8 mg/dL High 0.6-1.0 [facility] Comment on above: Performed By: #### L 500.4050, L100.0100 ####[facility] [address] [place], [address] ECRCL 22.25 ml/min Normal [facility] Comment on above: Performed By: #### L 500.4050, L100.0100 ####[facility] [address] [place], [address] GFR/1.73 sq M.predicted among non-blacks MDRD (S/P/Bld) [Vol rate/Area] 32 mL/min/{1.73_m2} Low >60 [facility] Comment on above: Result Comment: mL/m in/1.73m2 CKD-EPI Creatinine Equation (2020) Performed By: #### L 500.4050, L100.0100 ####[facility] [address] [place], [address] Globulin (S) [Mass/Vol] 3.6 g/dL Normal 2.2-4.2 [facility] Comment on above: Performed By: #### L 500.4050, L100.0100 ####[facility] [address] [place], [address] Glucose [Mass/Vol] 68 mg/dL Low 70-99 [facility] Comment on above: Performed By: #### L 500.4050, L100.0100 ####[facility] [address] [place], [address] Potassium [Moles/Vol] 4.0 mmol/L Normal 3.3-5.1 [facility] Comment on above: Performed By: #### L 500.4050, L100.0100 ####[facility] [address] [place], [address] Sodium [Moles/Vol] 137 mmol/L Normal 133-145 [facility] Comment on above: Performed By: #### L 500.4050, L100.0100 ####[facility] [address] [place], [address] T PROT 6.0 g/dL Normal 5.9-8.4 [facility] Comment on above: Performed By: #### L 500.4050, L100.0100 ####[facility] [address] [place], [address] Urea nitrogen [Mass/Vol] 34 mg/dL High 4-19 [facility] Comment on above: Performed By: #### L 500.4050, L100.0100 ####[facility] [address] [place], [address] Consultation - Nephrologyon 07-24-2024 Consultation - Nephrology Normal [facility] EGD Reporton 07-24-2024 EGD Report Normal [facility] MR/POSTOP.ANEon 07-24-2024 MR/POSTOP.ANE Normal [facility] MR/VXWQZLAS5fe 07-24-2024 MR/POSTOPAN2 Normal [facility] No Panel InformationOrdered By: Judd Galvin on 07-24-2024 20 U/L <32 [facility] Serum globulin measurementOr dered By: Judd Galvin on 07-24-2024 Globulin (S) [Mass/Vol] 3.6 g/dL 2.2-4.2 [facility] Serum globulin measurement 3.6 g/dL 2.2-4.2 [facility] Serum or plasma alanine camargo otransferase (ALT) measurementOrdered By: Judd Galvin on 07-24-2024 ALT [Catalytic activity/Vol] 9 U/L <35 [facility] Serum or plasma albumin megan urement (mass/volume)Ordered By: Judd Galvin on 07-24-2024 Albumin [Mass/Vol] 2.4 g/dL Low 3.4-4.8 [facility] Serum or plasma albumin/glob ulin mass ratioOrdered By: Judd Galvin on 07-24-2024 Albumin/Globulin [Mass ratio] 0.7 {ratio} Low 0.9-2.4 [facility] Serum or plasma alkaline susan sphatase measurementOrdered By: Judd Galvin on 07-24-2024 ALP [Catalytic activity/Vol] 45 U/L 35-104 [facility] Total proteinOrdered By: Earline Galvin on 07-24-2024 Protein [Mass/Vol] 6.0 g/dL 5.9-8.4 [facility] Total protein 6.0 g/dL 5.9-8.4 [facility] Basic Metabolic Profile (BMP )on 07-23-2024 BUN/CRE 19.5 RATIO Normal 10-20 [facility] Comment on above: Result Comment: AMENDED REPORT 07/23/241558 BUN/CRE previously reported as: 18.4 RATIO Performed By: #### L 500.2500, L100.0100 ####[facility] [address] [place], [address] Creatinine [Mass/Vol] 1.7 mg/dL High 0.6-1.0 [facility] Comment on above: Result Comment: AMENDED REPORT 07/23/241558 CREAT,SERUM previously reported as: 1.6 H mg/dL Performed By: #### L 500.2500, L100.0100 ####[facility] [address] [place], [address] ECRCL 26.32 ml/min Normal [facility] Comment on above: Result Comment: AMENDED REPORT 07/23/241558 Estimated CRCL previously reported as: 27.97 ml/min Performed By: #### L 500.2500, L100.0100 ####[facility] [address] [place], [address] GFR/1.73 sq M.predicted among non-blacks MDRD (S/P/Bld) [Vol rate/Area] 32 mL/min/{1.73_m2} Low >60 [facility] Comment on above: Result Comment: mL/m in/1.73m2 CKD-EPI Creatinine Equation (2020) AMENDED REPORT 07/23/241558 EST GFR previously reported as: 35 LmL/min/1.73m2 CKD-EPI Creatinine Equation (2020) Performed By: #### L 500.2500, L100.0100 ####[facility] [address] [place], [address] Glucose [Mass/Vol] 80 mg/dL Normal 70-99 [facility] Comment on above: Result Comment: AMENDED REPORT 02/25/25 1559 GLU previously reported as: 78 mg/dL Performed By: #### L 500.2500, L100.0100 ####[facility] [address] [place], [address] Urea nitrogen [Mass/Vol] 32 mg/dL High 4-19 [facility] Comment on above: Result Comment: AMENDED REPORT 07/23/24 1559 BUN previously reported as: 30 H mg/dL Performed By: #### L 500.2500, L100.0100 ####[facility] [address] [place], [address] Bilirubin directOrdered By: Makenzie Montalvo on 07-23-2024 Bilirubin.direct [Mass/Vol] 0.11 mg/dL 0.00-0.30 [facility] Bilirubin.direct [Mass/Vol]O rdered By: Makenzie Montalvo on 07-23-2024 Bilirubin direct 0.11 mg/dL 0.00-0.30 [facility] CBC W/Diff, Automatedon 06-30 Absolute Lymph 0.61 X10 3/uL Low 0.83-4.51 [facility] Comment on above: Performed By: #### L 500.2500, L100.0100 ####[facility] [address] [place], [address] Absolute Neut 12.5 X10 3/uL High 2.0-7.7 [facility] Comment on above: Performed By: #### L 500.2500, L100.0100 ####[facility] [address] [place], [address] Basophils/100 WBC (Bld) 0.3 % Normal 0-1 [facility] Comment on above: Performed By: #### L 500.2500, L100.0100 ####[facility] [address] [place], [address] Eosinophils/100 WBC (Bld) 0.1 % Normal 0-5 [facility] Comment on above: Performed By: #### L 500.2500, L100.0100 ####[facility] [address] [place], [address] Erythrocyte distribution width (RBC) [Ratio] 17.2 % High 11.6-14.6 [facility] Comment on above: Performed By: #### L 500.2500, L100.0100 ####[facility] [address] [place], [address] Hematocrit (Bld) [Volume fraction] 30.1 % Low 37-47 [facility] Comment on above: Performed By: #### L 500.2500, L100.0100 ####[facility] [address] [place], [address] Hemoglobin (Bld) [Mass/Vol] 8.8 g/dL Low 12.0-15.0 [facility] Comment on above: Performed By: #### L 500.2500, L100.0100 ####[facility] [address] [place], [address] IG% 2.000 High 0.0-0.9 [facility] Comment on above: Result Comment: IG% - Immature Granulocytes (promyelocytes, myelocytes andmetamyelocytes) > 1% indicates that a LEFT SHIFT is Present. Performed By: #### L 500.2500, L100.0100 ####[facility] [address] [place], [address] Lymphocytes/100 WBC (Bld) 4.3 % Low 19-41 [facility] Comment on above: Performed By: #### L 500.2500, L100.0100 ####[facility] [address] [place], [address] MCH (RBC) [Entitic mass] 26.3 pg Low 27.0-32.0 [facility] Comment on above: Performed By: #### L 500.2500, L100.0100 ####[facility] [address] [place], [address] MCHC (RBC) [Mass/Vol] 29.2 g/dL Low 32-36 [facility] Comment on above: Performed By: #### L 500.2500, L100.0100 ####[facility] [address] [place], [address] MCV (RBC) [Entitic vol] 90.1 fL Normal 81-99 [facility] Comment on above: Performed By: #### L 500.2500, L100.0100 ####[facility] [address] [place], [address] Monocytes/100 WBC (Bld) 5.7 % Normal 0-10 [facility] Comment on above: Performed By: #### L 500.2500, L100.0100 ####[facility] [address] [place], [address] Neutrophils/100 WBC (Bld) 87.6 % High 47-70 [facility] Comment on above: Performed By: #### L 500.2500, L100.0100 ####[facility] [address] [place], [address] Nucleated RBC (Bld) [#/Vol] 0 10*3/uL Normal 0-5 [facility] Comment on above: Performed By: #### L 500.2500, L100.0100 ####[facility] [address] [place], [address] Platelet mean volume (Bld) [Entitic vol] 8.9 fL Normal 6.2-12.0 [facility] Comment on above: Performed By: #### L 500.2500, L100.0100 ####[facility] [address] [place], [address] Platelets (Bld) [#/Vol] 347 10*3/uL Normal 150-450 [facility] Comment on above: Performed By: #### L 500.2500, L100.0100 ####[facility] [address] [place], [address] RBC (Bld) [#/Vol] 3.34 10*6/uL Low 4.2-5.4 [facility] Comment on above: Performed By: #### L 500.2500, L100.0100 ####[facility] [address] [place], [address] RDW SD 55.6 fl High 35.1-43.9 [facility] Comment on above: Performed By: #### L 500.2500, L100.0100 ####[facility] [address] [place], [address] WBC (Bld) [#/Vol] 14.3 10*3/uL High 4.4-11.0 [facility] Comment on above: Performed By: #### L 500.2500, L100.0100 ####[facility] [address] [place], [address] Chloride [Moles/Vol]Ordered By: Makenzie Montalvo on 07-23-2024 Serum or plasma chloride measurement (moles/volume) 98 mmol/L 98-107 [facility] Emergency Department Summary on 07-23-2024 Emergency Department Summary Normal [facility] H AND P Exam - Hospitaliston 07-23-2024 H&P Exam - Hospitalist Normal [facility] Liver Profileon 07-23-2024 Albumin [Mass/Vol] 2.7 g/dL Low 3.4-4.8 [facility] Comment on above: Performed By: #### L 500.3400 ####[facility] [address] [place], [address] ALK PHOS 50 U/L Normal 35-104 [facility] Comment on above: Performed By: #### L 500.3400 ####[facility] [address] [place], [address] ALT [Catalytic activity/Vol] 13 U/L Normal <=34 [facility] Comment on above: Performed By: #### L 500.3400 ####[facility] [address] [place], [address] AST [Catalytic activity/Vol] 23 U/L Normal <=31 [facility] Comment on above: Result Comment: Hemo lysis present, Results??could be affected.?? Performed By: #### L 500.3400 ####[facility] [address] [place], [address] Bilirubin [Mass/Vol] 0.30 mg/dL Normal 0.00-1.30 [facility] Comment on above: Performed By: #### L 500.3400 ####[facility] [address] [place], [address] Bilirubin.direct [Mass/Vol] 0.11 mg/dL Normal 0.00-0.30 [facility] Comment on above: Result Comment: Hemo lysis present, Results??could be affected.?? Performed By: #### L 500.3400 ####[facility] [address] [place], [address] Globulin (S) [Mass/Vol] 3.7 g/dL Normal 2.2-4.2 [facility] Comment on above: Performed By: #### L 500.3400 ####[facility] [address] [place], [address] T PROT 6.3 g/dL Normal 5.9-8.4 [facility] Comment on above: Performed By: #### L 500.3400 ####[facility] [address] [place], [address] MR/CON.PCM.GIon 07-23-2024 MR/CON.PCM.GI Normal [facility] Serum or plasma chloride claudio surement (moles/volume)Ordered By: Makenzie Montalvo on 07-23-2024 Chloride [Moles/Vol] 98 mmol/L 98-107 [facility] Stool Occult Blood iFOBon STOB Negative Normal [facility] Comment on above: Performed By: #### M 100.7900 ####[facility] [address] [place], [address] Stool gastrointestinal hemog lobin detection by immunologic methodOrdered By: Makenzie Montalvo on 07-23-2024 Lower GI hemoglobin IA Ql (Stl) [facility] Urinalysis, Completeon 07-23 BACTERIA Normal None Seen [facility] Comment on above: Order Comment: ADWOA CTOR TO SPECIFY Result Comment: PT D ISCHARGED Performed By: #### L 400.0001 ####[facility] [address] [place], [address] BILIRUBIN URINE Normal Negative [facility] Comment on above: Order Comment: ADWOA CTOR TO SPECIFY Result Comment: PT D ISCHARGED Performed By: #### L 400.0001 ####[facility] [address] [place], [address] Clarity (U) Normal Clear [facility] Comment on above: Order Comment: ADWOA CTOR TO SPECIFY Result Comment: PT D ISCHARGED Performed By: #### L 400.0001 ####[facility] [address] [place], [address] Color (U) Normal Yellow [facility] Comment on above: Order Comment: ADWOA CTOR TO SPECIFY Result Comment: PT D ISCHARGED Performed By: #### L 400.0001 ####[facility] [address] [place], [address] EPI,SQUAMOUS Normal 5-10 [facility] Comment on above: Order Comment: ADWOA CTOR TO SPECIFY Result Comment: PT D ISCHARGED Performed By: #### L 400.0001 ####[facility] [address] [place], [address] GLUCOSE, UR Normal Normal [facility] Comment on above: Order Comment: COLLE CTOR TO SPECIFY Result Comment: PT D ISCHARGED Performed By: #### L 400.0001 ####[facility] [address] [place], [address] KETONE UR Normal Negative [facility] Comment on above: Order Comment: COLLE CTOR TO SPECIFY Result Comment: PT D ISCHARGED Performed By: #### L 400.0001 ####[facility] [address] [place], [address] LEUK ESTERASE Normal Negative [facility] Comment on above: Order Comment: ADWOA CTOR TO SPECIFY Result Comment: PT D ISCHARGED Performed By: #### L 400.0001 ####[facility] [address] [place], [address] Mucus Ql (Urine sed) Normal [facility] Comment on above: Order Comment: COLLE CTOR TO SPECIFY Result Comment: PT D ISCHARGED Performed By: #### L 400.0001 ####[facility] [address] [place], [address] Nitrite Ql (U) Normal Negative [facility] Comment on above: Order Comment: ADWOA CTOR TO SPECIFY Result Comment: PT D ISCHARGED Performed By: #### L 400.0001 ####[facility] [address] [place], [address] OCCULT BLOOD-UR Normal Negative [facility] Comment on above: Order Comment: ADWOA CTOR TO SPECIFY Result Comment: PT D ISCHARGED Performed By: #### L 400.0001 ####[facility] [address] [place], [address] pH UR Normal 5.0 - 8.0 [facility] Comment on above: Order Comment: ADWOA CTOR TO SPECIFY Result Comment: PT D ISCHARGED Performed By: #### L 400.0001 ####[facility] [address] [place], [address] PROT DIPSTX Normal Negative [facility] Comment on above: Order Comment: COLLE CTOR TO SPECIFY Result Comment: PT D ISCHARGED Performed By: #### L 400.0001 ####[facility] [address] [place], [address] RBC Normal 0-5 [facility] Comment on above: Order Comment: COLLE CTOR TO SPECIFY Result Comment: PT D ISCHARGED Performed By: #### L 400.0001 ####[facility] [address] [place], [address] SP.GR. DIPSTX Normal 1.002-1.03 0 [facility] Comment on above: Order Comment: COLLE CTOR TO SPECIFY Result Comment: PT D ISCHARGED Performed By: #### L 400.0001 ####[facility] [address] [place], [address] UR Preservative Normal [facility] Comment on above: Order Comment: COLLE CTOR TO SPECIFY Result Comment: PT D ISCHARGED Performed By: #### L 400.0001 ####[facility] [address] [place], [address] UROBILI Normal Normal [facility] Comment on above: Order Comment: ADWOA CTOR TO SPECIFY Result Comment: PT D ISCHARGED Performed By: #### L 400.0001 ####[facility] [address] [place], [address] WBC Normal 0-5 [facility] Comment on above: Order Comment: COLLE CTOR TO SPECIFY Result Comment: PT D ISCHARGED Performed By: #### L 400.0001 ####[facility] [address] [place], [address] 12 Lead EKGon 07-18-2024 12 Lead EKG Normal [facility] ALP [Catalytic activity/Vol] Ordered By: Sheldon Toribio on 07-18-2024 Serum or plasma alkaline phosphatase measurement 48 U/L 45-117 [facility] ALT [Catalytic activity/Vol] Ordered By: Sheldon Toribio on 07-18-2024 Serum or plasma alanine aminotransferase (ALT) measurement 14 U/L 13-56 [facility] Absolute lymphocyte countOrd ered By: Sheldon Toribio on 07-18-2024 Lymphocytes Auto (Unsp spec) [#/Vol] 0.54 10*3/uL Low 0.83-4.51 [facility] Absolute neutrophil countOrd ered By: Sheldon Toribio on 07-18-2024 Absolute neutrophil count 6.7 X10^3/uL 2.0-7.7 [facility] Albumin [Mass/Vol]Ordered By : Sheldon Toribio on 07-18-2024 Serum or plasma albumin measurement (mass/volume) 2.0 g/dL Low 3.2-5.0 [facility] Albumin to globulin ratioOrd ered By: Sheldon Toribio on 07-18-2024 Albumin to globulin ratio 0.4 RATIO Low 0.9-2.4 [facility] Antigen C Gammacloneon 07-18 ANTIGEN ID Negative Normal [facility] Comment on above: Performed By: #### B AGC ####[facility] [address] [place], [address] Performed By: #### B AGK ####[facility] [address] [place], [address] Antigen E Gammacloneon 07-18 ANTIGEN ID Positive Normal [facility] Comment on above: Performed By: #### B AGE ####[facility] [address] [place], [address] Antigen Fyaon 07-18-2024 ANTIGEN ID Negative Normal [facility] Comment on above: Performed By: #### B AGFYA ####[facility] [address] [place], [address] Automated lymphocyte count a s percentage of total leukocytesOrdered By: Sheldon Toribio on 07-18-2024 Lymphocytes/100 WBC Auto (Unsp spec) 6.6 % Low 19-41 [facility] [id number] 07-18-2024 ANTIBODY ID Normal [facility] Comment on above: Order Comment: AN Result Comment: CFYA WARM Performed By: #### L 100.0100, L503.6005, BTS, L500.4050, [id number], L501.4020 ####[facility] [address] [place], [address] Base excess Calc (BldV) [Mol es/Vol]Ordered By: Sheldon Toribio on 07-18-2024 Blood base excess determination 10 mmol/L High -2-2 [facility] Basophil percentageOrdered B y: Sheldon Toribio on 07-18-2024 Basophils/100 WBC (Bld) 0.2 % 0-1 [facility] Basophil percentage 0.2 % 0-1 [facility] Bilirubin, totalOrdered By: Sheldon Toribio on 07-18-2024 Bilirubin [Mass/Vol] 0.30 mg/dL 0.20-1.00 [facility] Bilirubin, total 0.30 mg/dL 0.20-1.00 [facility] Blood Gases by CPSon 025 Base excess Calc (Bld) [Moles/Vol] 10 mmol/L High -2 to +2 [facility] Comment on above: Performed By: #### L 9000.0800 ####[facility] [address] [place], [address] Blood Gas Type ART Normal [facility] Comment on above: Performed By: #### L 9000.0800 ####[facility] [address] [place], [address] CO2 [Moles/Vol] 35 mmol/L Normal [facility] Comment on above: Performed By: #### L 9000.0800 ####[facility] [address] [place], [address] FI02 3.0 Normal [facility] Comment on above: Performed By: #### L 9000.0800 ####[facility] [facility] [address] [place], [address] HCO3 (Bld) [Moles/Vol] 33.3 mmol/L High 22-26 [facility] Comment on above: Performed By: #### L 8999.08 ####[facility] [address] [place], [address] Mode Not entered Normal [facility] Comment on above: Performed By: #### L 8999.08 ####[facility] [address] [place], [address] O2 Delivery Dev Cannula Normal [facility] Comment on above: Performed By: #### L 8999.08 ####[facility] [address] [place], [address] pCO2 42.4 mmHg Normal 35-45 [facility] Comment on above: Performed By: #### L 8999.08 ####[facility] [address] [place], [address] pH (Bld) 7.50 [pH] High 7.35-7.45 [facility] Comment on above: Performed By: #### L 8999.08 ####[facility] [address] [place], [address] PO2 82 mmHG Normal 75-100 [facility] Comment on above: Performed By: #### L 8999.08 ####[facility] [address] [place], [address] SITE L Brach Normal [facility] Comment on above: Performed By: #### L 8999.08 ####[facility] [address] [place], [address] SO2 97 Normal 95-99 [facility] Comment on above: Performed By: #### L 8999.0800 ####[facility] [address] [place], [address] Blood base excess determinat ionOrdered By: Sheldon Toribio on 07-18-2024 Base excess Calc (BldV) [Moles/Vol] 10 mmol/L High -2-2 [facility] Blood bicarbonate measuremen tOrdered By: Sheldongeorge Toribio on 07-18-2024 HCO3 (Bld) [Moles/Vol] 33.3 mmol/L High [facility] Blood bicarbonate measurement 33.3 mmol/L High [facility] Blood urea nitrogen (BUN)/cr eatinine ratioOrdered By: Sheldon Toribio on 07-18-2024 Blood urea nitrogen (BUN)/creatinine ratio 14.8 RATIO 03-17 [facility] CBC W/Diff, Automatedon 06-30 Absolute Lymph 0.54 X10 3/uL Low 0.83-4.51 [facility] Comment on above: Performed By: #### L 100.0100, L503.6005, BTS, L500.4050, [id number], L501.4020 ####[facility] [address] [place], [address] Absolute Neut 6.7 X10 3/uL Normal 2.0-7.7 [facility] Comment on above: Performed By: #### L 100.0100, L503.6005, BTS, L500.4050, [id number], L501.4020 ####[facility] [address] [place], [address] Basophils/100 WBC (Bld) 0.2 % Normal 0-1 [facility] Comment on above: Performed By: #### L 100.0100, L503.6005, BTS, L500.4050, GLGI6394, L501.4020 ####[facility] [address] [place], [address] Eosinophils/100 WBC (Bld) 0.7 % Normal 0-5 [facility] Comment on above: Performed By: #### L 100.0100, L503.6005, BTS, L500.4050, DMFJ6863, L501.4020 ####[facility] [address] [place], [address] Erythrocyte distribution width (RBC) [Ratio] 16.8 % High 11.6-14.6 [facility] Comment on above: Performed By: #### L 100.0100, L503.6005, BTS, L500.4050, [id number], L501.4020 ####[facility] [address] [place], [address] Hematocrit (Bld) [Volume fraction] 32.7 % Low 37-47 [facility] Comment on above: Performed By: #### L 100.0100, L503.6005, BTS, L500.4050, ZOZW1150, L501.4020 ####[facility] [address] [place], [address] Hemoglobin (Bld) [Mass/Vol] 9.7 g/dL Low 12.0-15.0 [facility] Comment on above: Performed By: #### L 100.0100, L503.6005, BTS, L500.4050, QBDL0194, L501.4020 ####[facility] [address] [place], [address] IG% 1.700 High 0.0-0.9 [facility] Comment on above: Result Comment: IG% - Immature Granulocytes (promyelocytes, myelocytes andmetamyelocytes) > 1% indicates that a LEFT SHIFT is Present. Performed By: #### L 100.0100, L503.6005, BTS, L500.4050, [id number], L501.4020 ####[facility] [address] [place], [address] Lymphocytes/100 WBC (Bld) 6.6 % Low 19-41 [facility] Comment on above: Performed By: #### L 100.0100, L503.6005, BTS, L500.4050, NRBX2206, L501.4020 ####[facility] [address] [place], [address] MCH (RBC) [Entitic mass] 26.6 pg Low 27.0-32.0 [facility] Comment on above: Performed By: #### L 100.0100, L503.6005, BTS, L500.4050, CAIY6945, L501.4020 ####[facility] [address] [place], [address] MCHC (RBC) [Mass/Vol] 29.7 g/dL Low 32-36 [facility] Comment on above: Performed By: #### L 100.0100, L503.6005, BTS, L500.4050, IGOD1743, L501.4020 ####[facility] [address] [place], [address] MCV (RBC) [Entitic vol] 89.6 fL Normal 81-99 [facility] Comment on above: Performed By: #### L 100.0100, L503.6005, BTS, L500.4050, EFMJ9322, L501.4020 ####[facility] [address] [place], [address] Monocytes/100 WBC (Bld) 9.7 % Normal 0-10 [facility] Comment on above: Performed By: #### L 100.0100, L503.6005, BTS, L500.4050, NQQG9498, L501.4020 ####[facility] [address] [place], [address] Neutrophils/100 WBC (Bld) 81.1 % High 47-70 [facility] Comment on above: Performed By: #### L 100.0100, L503.6005, BTS, L500.4050, HHXO1032, L501.4020 ####[facility] [address] [place], [address] Nucleated RBC (Bld) [#/Vol] 0 10*3/uL Normal 0-5 [facility] Comment on above: Performed By: #### L 100.0100, L503.6005, BTS, L500.4050, WJLG5178, L501.4020 ####[facility] [address] [place], [address] Platelet mean volume (Bld) [Entitic vol] 9.0 fL Normal 6.2-12.0 [facility] Comment on above: Performed By: #### L 100.0100, L503.6005, BTS, L500.4050, BEJC6871, L501.4020 ####[facility] [address] [place], [address] Platelets (Bld) [#/Vol] 281 10*3/uL Normal 150-450 [facility] Comment on above: Performed By: #### L 100.0100, L503.6005, BTS, L500.4050, DZVB3543, L501.4020 ####[facility] [address] [place], [address] RBC (Bld) [#/Vol] 3.65 10*6/uL Low 4.2-5.4 [facility] Comment on above: Performed By: #### L 100.0100, L503.6005, BTS, L500.4050, JODG7843, L501.4020 ####[facility] [address] [place], [address] RDW SD 54.5 fl High 35.1-43.9 [facility] Comment on above: Performed By: #### L 100.0100, L503.6005, BTS, L500.4050, OUFT1317, L501.4020 ####[facility] [address] [place], [address] WBC (Bld) [#/Vol] 8.2 10*3/uL Normal 4.4-11.0 [facility] Comment on above: Performed By: #### L 100.0100, L503.6005, BTS, L500.4050, DFQI5132, L501.4020 ####[facility] [address] [place], [address] CTA Abd/Pelvis W/WO Contrast on 07-18-2024 CTA Abd/Pelvis W/WO Contrast Normal [facility] Calcium [Mass/Vol]Ordered By : Sheldon Catarino on 07-18-2024 Serum or plasma calcium measurement (mass/volume) 8.7 mg/dL 8.5-10.1 [facility] Carbon dioxide measurementOr dered By: Sheldon Toribio on 07-18-2024 CO2 [Moles/Vol] 34.0 mmol/L High 21.0-32.0 [facility] Carbon dioxide measurement 34.0 mmol/L High 21.0-32.0 [facility] Chloride measurementOrdered By: Sheldon Toribio on 07-18-2024 Chloride [Moles/Vol] 97 mmol/L Low 98-107 [facility] Chloride measurement 97 mmol/L Low 98-107 [facility] Comprehensive Metabolic Prof ilon 07-18-2024 Albumin [Mass/Vol] 2.0 g/dL Low 3.2-5.0 [facility] Comment on above: Order Comment: 'TROP ' Serial specimen #1, #2 or #3: 1 Performed By: #### L 100.0100, L503.6005, BTS, L500.4050, [id number], L501.4020 ####[facility] [address] [place], [address] Albumin/Globulin [Mass ratio] 0.4 {ratio} Low 0.9-2.4 [facility] Comment on above: Order Comment: 'TROP ' Serial specimen #1, #2 or #3: 1 Performed By: #### L 100.0100, L503.6005, BTS, L500.4050, [id number], L501.4020 ####[facility] [address] [place], [address] ALK P 48 U/L Normal 45-117 [facility] Comment on above: Order Comment: 'TROP ' Serial specimen #1, #2 or #3: 1 Performed By: #### L 100.0100, L503.6005, BTS, L500.4050, [id number], L501.4020 ####[facility] [address] [place], [address] ALT [Catalytic activity/Vol] 14 U/L Normal 13-56 [facility] Comment on above: Order Comment: 'TROP ' Serial specimen #1, #2 or #3: 1 Performed By: #### L 100.0100, L503.6005, BTS, L500.4050, TKCJ6141, L501.4020 ####[facility] [address] [place], [address] AST [Catalytic activity/Vol] 18 U/L Normal 15-37 [facility] Comment on above: Order Comment: 'TROP ' Serial specimen #1, #2 or #3: 1 Performed By: #### L 100.0100, L503.6005, BTS, L500.4050, YGIJ2736, L501.4020 ####[facility] [address] [place], [address] Bilirubin [Mass/Vol] 0.30 mg/dL Normal 0.20-1.00 [facility] Comment on above: Order Comment: 'TROP ' Serial specimen #1, #2 or #3: 1 Result Comment: For patients on eltrombopag therapy, use of Dimension [place] TBIL is not recommended. Performed By: #### L 100.0100, L503.6005, BTS, L500.4050, RLLP2889, L501.4020 ####[facility] [address] [place], [address] BUN/CRE 14.8 RATIO Normal 10-20 [facility] Comment on above: Order Comment: 'TROP ' Serial specimen #1, #2 or #3: 1 Performed By: #### L 100.0100, L503.6005, BTS, L500.4050, [id number], L501.4020 ####[facility] [address] [place], [address] CA,Total 8.7 mg/dL Normal 8.5-10.1 [facility] Comment on above: Order Comment: 'TROP ' Serial specimen #1, #2 or #3: 1 Performed By: #### L 100.0100, L503.6005, BTS, L500.4050, [id number], L501.4020 ####[facility] [address] [place], [address] Chloride [Moles/Vol] 97 mmol/L Low 98-107 [facility] Comment on above: Order Comment: 'TROP ' Serial specimen #1, #2 or #3: 1 Performed By: #### L 100.0100, L503.6005, BTS, L500.4050, [id number], L501.4020 ####[facility] [address] [place], [address] CO2 [Moles/Vol] 34.0 mmol/L High 21.0-32.0 [facility] Comment on above: Order Comment: 'TROP ' Serial specimen #1, #2 or #3: 1 Performed By: #### L 100.0100, L503.6005, BTS, L500.4050, [id number], L501.4020 ####[facility] [address] [place], [address] Creatinine [Mass/Vol] 1.69 mg/dL High 0.55-1.02 [facility] Comment on above: Order Comment: 'TROP ' Serial specimen #1, #2 or #3: 1 Result Comment: The validity of the calculated GFR GFRAA in patients over70 years has not been determined. Clinical correlation isessential. Performed By: #### L 100.0100, L503.6005, BTS, L500.4050, [id number], L501.4020 ####[facility] [address] [place], [address] ECRCL 26.75 ml/min Normal [facility] Comment on above: Order Comment: 'TROP ' Serial specimen #1, #2 or #3: 1 Performed By: #### L 100.0100, L503.6005, BTS, L500.4050, [id number], L501.4020 ####[facility] [address] [place], [address] EST GFR - AA 39 mL/min Low >60 [facility] Comment on above: Order Comment: 'TROP ' Serial specimen #1, #2 or #3: 1 Result Comment: Afri can [place] GFR Calc Performed By: #### L 100.0100, L503.6005, BTS, L500.4050, ZCBQ5928, L501.4020 ####[facility] [address] [place], [address] GAP 4 Low 5-15 [facility] Comment on above: Order Comment: 'TROP ' Serial specimen #1, #2 or #3: 1 Performed By: #### L 100.0100, L503.6005, BTS, L500.4050, [id number], L501.4020 ####[facility] [address] [place], [address] GFR/1.73 sq M.predicted among non-blacks MDRD (S/P/Bld) [Vol rate/Area] 33 mL/min/{1.73_m2} Low >60 [facility] Comment on above: Order Comment: 'TROP ' Serial specimen #1, #2 or #3: 1 Result Comment: Non- GFR Calc Performed By: #### L 100.0100, L503.6005, BTS, L500.4050, [id number], L501.4020 ####[facility] [address] [place], [address] Globulin (S) [Mass/Vol] 5.1 g/dL High 2.2-4.2 [facility] Comment on above: Order Comment: 'TROP ' Serial specimen #1, #2 or #3: 1 Performed By: #### L 100.0100, L503.6005, BTS, L500.4050, NQGM5956, L501.4020 ####[facility] [address] [place], [address] Glucose [Mass/Vol] 89 mg/dL Normal 74-106 [facility] Comment on above: Order Comment: 'TROP ' Serial specimen #1, #2 or #3: 1 Performed By: #### L 100.0100, L503.6005, BTS, L500.4050, VCUN3793, L501.4020 ####[facility] [address] [place], [address] Potassium [Moles/Vol] 4.1 mmol/L Normal 3.5-5.1 [facility] Comment on above: Order Comment: 'TROP ' Serial specimen #1, #2 or #3: 1 Performed By: #### L 100.0100, L503.6005, BTS, L500.4050, [id number], L501.4020 ####[facility] [address] [place], [address] Sodium [Moles/Vol] 135 mmol/L Low 136-145 [facility] Comment on above: Order Comment: 'TROP ' Serial specimen #1, #2 or #3: 1 Performed By: #### L 100.0100, L503.6005, BTS, L500.4050, [id number], L501.4020 ####[facility] [address] [place], [address] T PROT 7.1 g/dL Normal 6.4-8.2 [facility] Comment on above: Order Comment: 'TROP ' Serial specimen #1, #2 or #3: 1 Performed By: #### L 100.0100, L503.6005, BTS, L500.4050, PFPY1189, L501.4020 ####[facility] [address] [place], [address] Urea nitrogen [Mass/Vol] 25 mg/dL High 7-18 [facility] Comment on above: Order Comment: 'TROP ' Serial specimen #1, #2 or #3: 1 Performed By: #### L 100.0100, L503.6005, BTS, L500.4050, [id number], L501.4020 ####[facility] [address] [place], [address] Creatinine [Mass/Vol]Ordered By: Sheldon Toribio on 07-18-2024 Serum or plasma creatinine measurement (mass/volume) 1.69 mg/dL High 0.55-1.02 [facility] Determination of fraction of inspired oxygenOrdered By: Sheldon Toribio on 07-18-2024 Determination of fraction of inspired oxygen 3.0 [facility] Emergency Department Summary on 07-18-2024 Emergency Department Summary Normal [facility] Eosinophil percentageOrdered By: Sheldongeorge Toribio on 07-18-2024 Eosinophils/100 WBC (Bld) 0.7 % 0-5 [facility] Eosinophil percentage 0.7 % 0-5 [facility] Erythrocyte distribution wid th (RBC) [Ratio]Ordered By: Sheldon Toribio on 07-18-2024 Erythrocyte distribution width ratio 16.8 % High 11.6-14.6 [facility] Erythrocyte distribution wid th ratioOrdered By: Sheldongeorge Toribio on 07-18-2024 Erythrocyte distribution width (RBC) [Ratio] 16.8 % High 11.6-14.6 [facility] Erythrocyte distribution wid th standard deviationOrdered By: Sheldon Toribio on 07-18-2024 Erythrocyte distribution width (RBC) [Ratio] 54.5 fl High 35.1-43.9 [facility] Erythrocyte distribution width standard deviation 54.5 fl High 35.1-43.9 [facility] Estimated glomerular filtrat ion rate (GFR) AmericanOrdered By: Sheldon Toribio on 07-18-2024 Estimated glomerular filtration rate (GFR) 39 mL/min Low >60 [facility] Estimation of creatinine austen aranceOrdered By: Sheldon Toribio on 07-18-2024 Estimation of creatinine clearance 26.75 ml/min [facility] Gastroenterology Visit Repor ton 07-18-2024 Gastroenterology Visit Report Normal [facility] Glomerular filtration rate ( GFR) estimationOrdered By: Sheldon Toribio on 07-18-2024 GFR/1.73 sq M.predicted among non-blacks MDRD (S/P/Bld) [Vol rate/Area] 33 mL/min/{1.73_m2} Low >60 [facility] Glomerular filtration rate (GFR) estimation 33 mL/min Low >60 [facility] Glucose measurementOrdered B y: Sheldon Toribio on 07-18-2024 Glucose [Mass/Vol] 89 mg/dL 74-106 [facility] Glucose measurement 89 mg/dL 74-106 [facility] Hematocrit Auto (Bld) [Volum e fraction]Ordered By: Sheldon Toribio on 07-18-2024 Hematocrit (Bld) [Volume fraction] 32.7 % Low 37-47 [facility] Automated blood hematocrit (percentage) 32.7 % Low 37-47 [facility] Hemoglobin measurementOrdere d By: Sheldon Toribio on 07-18-2024 Hemoglobin (Bld) [Mass/Vol] 9.7 g/dL Low 12.0-15.0 [facility] Hemoglobin measurement 9.7 g/dL Low 12.0-15.0 [facility] Immature granulocytes/100 WB C Auto (Bld)Ordered By: Sheldon Toribio on 07-18-2024 Immature granulocytes/100 WBC (Bld) 1.700 % High 0.0-0.9 [facility] Automated immature granulocyte percentage 1.700 % High 0.0-0.9 [facility] L501.4020on 07-18-2024 TROPONIN-I HS 24 pg/mL Normal 3.0-54.0 [facility] Comment on above: Order Comment: 'TROP ' Serial specimen #1, #2 or #3: 1 Result Comment: Plea se Note: New Test Units and Gender Specific Reference Ranges. For more information see Policy Stat Procedure [place] High Sensitivity Troponin (TNIH) and attachments. Performed By: #### L 100.0100, L503.6005, BTS, L500.4050, [id number], L501.4020 ####[facility] [address] [place], [place], [id number] Lactic Acidon 07-18-2024 Lactate [Moles/Vol] 1.3 mmol/L Normal 0.4-1.9 [facility] Comment on above: Order Comment: Y Performed By: #### L 100.0100, L503.6005, BTS, L500.4050, [id number], L501.4020 ####[facility] [address] [place], [place], [id number] Lactic acid measurementOrder ed By: Sheldon Toribio on 07-18-2024 Lactic acid measurement 1.3 mmol/L 0.4-2.0 [facility] Lymphocytes Auto (Unsp spec) [#/Vol]Ordered By: Sheldon Toribio on 07-18-2024 Absolute lymphocyte count 0.54 X10^3/uL Low 0.83-4.51 [facility] Lymphocytes/100 WBC Auto (Un sp spec)Ordered By: Sheldongeorge Toribio on 07-18-2024 Automated lymphocyte count as percentage of total leukocytes 6.6 % Low 19-41 [facility] MCV (RBC) [Entitic vol]Order ed By: Sheldon Toribio on 07-18-2024 MCV (mean corpuscular volume) determination 89.6 fL 81-99 [facility] MCV (mean corpuscular volume ) determinationOrdered By: Sheldon Toribio on 07-18-2024 MCV (RBC) [Entitic vol] 89.6 fL 81-99 [facility] Mean corpuscular hemoglobin (MCH) determinationOrdered By: Sheldon Toribio on 07-18-2024 MCH (RBC) [Entitic mass] 26.6 pg Low 27.0-32.0 [facility] Mean corpuscular hemoglobin (MCH) determination 26.6 pg Low 27.0-32.0 [facility] Mean corpuscular hemoglobin concentration (MCHC) determinationOrdered By: Sheldon Toribio on 07-18-2024 Mean corpuscular hemoglobin concentration (MCHC) determination 29.7 g/dL Low 32-36 [facility] Mean platelet volume determi nationOrdered By: Sheldon Toribio on 07-18-2024 Mean platelet volume determination 9.0 fl 6.2-12.0 [facility] Measurement, pHOrdered By: Gildardo Toribio on 07-18-2024 pH (Unsp spec) 7.50 [pH] High 7.35-7.45 [facility] Monocyte percentageOrdered B y: Sheldon Toribio on 07-18-2024 Monocytes/100 WBC (Bld) 9.7 % 0-10 [facility] Monocyte percentage 9.7 % 0-10 [facility] Neutrophil percentageOrdered By: Sheldon Toribio on 07-18-2024 Neutrophils/100 WBC (Bld) 81.1 % High 47-70 [facility] Neutrophil percentage 81.1 % High 47-70 [facility] No Panel InformationOrdered By: Sheldon Toribio on 07-18-2024 ART [facility] L Brach [facility] Not entered [facility] Cannula [facility] 18 U/L 15-37 [facility] Nucleated red blood cell per centageOrdered By: Sheldon Toribio on 07-18-2024 Nucleated red blood cell percentage 0 % 0-5 [facility] Oxygen saturation measuremen tOrdered By: Sheldon Toribio on 07-18-2024 Oxygen saturation measurement 97 % 95-99 [facility] Partial pressure of carbon d ioxide measurementOrdered By: Sheldon Toribio on 07-18-2024 Partial pressure of carbon dioxide measurement 42.4 mmHg 35-45 [facility] Partial pressure of oxygen m easurementOrdered By: Sheldon Toribio on 07-18-2024 Partial pressure of oxygen measurement 82 mmHG 75-100 [facility] Platelet countOrdered By: Savana Toribio on 07-18-2024 Platelets (Bld) [#/Vol] 281 10*3/uL 150-450 [facility] Platelet count 281 K/mm3 150-450 [facility] Potassium measurementOrdered By: Sheldon Toribio on 07-18-2024 Potassium [Moles/Vol] 4.1 mmol/L 3.5-5.1 [facility] Potassium measurement 4.1 mmol/L 3.5-5.1 [facility] RBC Auto (Bld) [#/Vol]Ordere d By: Sheldon Toribio on 07-18-2024 RBC (Bld) [#/Vol] 3.65 10*6/uL Low 4.2-5.4 [facility] Automated blood erythrocyte count 3.65 M/mm3 Low 4.2-5.4 [facility] Serum anion gap measurementO rdered By: Sheldon Toribio on 07-18-2024 Serum anion gap measurement 4 Low 5-15 [facility] Serum globulin measurementOr dered By: Sheldon Toribio on 07-18-2024 Globulin (S) [Mass/Vol] 5.1 g/dL High 2.2-4.2 [facility] Serum globulin measurement 5.1 g/dL High 2.2-4.2 [facility] Serum or plasma alanine camargo otransferase (ALT) measurementOrdered By: Sheldon Toribio on 07-18-2024 ALT [Catalytic activity/Vol] 14 U/L 13-56 [facility] Serum or plasma albumin megan urement (mass/volume)Ordered By: Sheldon Toribio on 07-18-2024 Albumin [Mass/Vol] 2.0 g/dL Low 3.2-5.0 [facility] Serum or plasma alkaline susan sphatase measurementOrdered By: Sheldon Toribio on 07-18-2024 ALP [Catalytic activity/Vol] 48 U/L 45-117 [facility] Serum or plasma calcium megan urement (mass/volume)Ordered By: Sheldon Toribio on 07-18-2024 Calcium [Mass/Vol] 8.7 mg/dL 8.5-10.1 [facility] Serum or plasma creatinine m easurement (mass/volume)Ordered By: Sheldon Toribio on 07-18-2024 Creatinine [Mass/Vol] 1.69 mg/dL High 0.55-1.02 [facility] Serum or plasma urea nitroge n measurement (mass/volume)Ordered By: Sheldon Toribio on 07-18-2024 Urea nitrogen [Mass/Vol] 25 mg/dL High 12-13 [facility] Sodium levelOrdered By: Sheldon Toribio on 07-18-2024 Sodium [Moles/Vol] 135 mmol/L Low 136-145 [facility] Sodium level 135 mmol/L Low 136-145 [facility] Total carbon dioxide measure mentOrdered By: Sheldon Toribio on 07-18-2024 CO2 [Moles/Vol] 35 mmol/L [facility] Total carbon dioxide measurement 35 mmol/L [facility] Total proteinOrdered By: Sheldon Toribio on 07-18-2024 Protein [Mass/Vol] 7.1 g/dL 6.4-8.2 [facility] Total protein 7.1 g/dL 6.4-8.2 [facility] Troponin IOrdered By: Sheldon hall on 07-18-2024 Troponin I 24 pg/mL 3.0-54.0 [facility] Troponin I 24 pg/mL 3.0-54.0 [facility] Type AND Screenon 07-18-2024 ABO and Rh group Nom (Bld) Blood group O Rh(D) positive Normal [facility] Comment on above: Order Comment: AN Performed By: #### L 100.0100, L503.6005, BTS, L500.4050, [id number], L501.4020 ####[facility] [address] [place], [place], [id number] Urea nitrogen [Mass/Vol]Orde red By: Sheldon Toribio on 07-18-2024 Serum or plasma urea nitrogen measurement (mass/volume) 25 mg/dL High 12-13 [facility] White blood cell (WBC) count Ordered By: Sheldon Toribio on 07-18-2024 WBC (Bld) [#/Vol] 8.2 10*3/uL 4.4-11.0 [facility] White blood cell (WBC) count 8.2 K/mm3 4.4-11.0 [facility] pH (Unsp spec)Ordered By: Savana Toribio on 07-18-2024 Measurement, pH 7.50 High 7.35-7.45 [facility] Absolute lymphocyte countOrd ered By: Millie Massey on 06-25-2024 Lymphocytes Auto (Unsp spec) [#/Vol] 0.69 10*3/uL Low 0.83-4.51 [facility] Absolute neutrophil countOrd ered By: Millie Massey on 06-25-2024 Absolute neutrophil count 2.8 X10^3/uL 2.0-7.7 [facility] Automated lymphocyte count a s percentage of total leukocytesOrdered By: Millie Massey on 06-25-2024 Lymphocytes/100 WBC Auto (Unsp spec) 15.6 % Low 19-41 [facility] Basic Metabolic Profile (BMP )on 06-25-2024 BUN/CRE 15.7 RATIO Normal 10-20 [facility] Comment on above: Order Comment: 103.1 Performed By: #### L 501.9520, L500.2500, L100.0100 ####[facility] [address] [place], [address] CA,Total 8.5 mg/dL Normal 8.5-10.1 [facility] Comment on above: Order Comment: 103.1 Performed By: #### L 501.9520, L500.2500, L100.0100 ####[facility] [address] [place], [address] Chloride [Moles/Vol] 104 mmol/L Normal 98-107 [facility] Comment on above: Order Comment: 103.1 Performed By: #### L 501.9520, L500.2500, L100.0100 ####[facility] [address] [place], [address] CO2 [Moles/Vol] 29.0 mmol/L Normal 21.0-32.0 [facility] Comment on above: Order Comment: 103.1 Performed By: #### L 501.9520, L500.2500, L100.0100 ####[facility] [address] [place], [address] Creatinine [Mass/Vol] 2.48 mg/dL High 0.55-1.02 [facility] Comment on above: Order Comment: 103.1 Result Comment: The validity of the calculated GFR GFRAA in patients over70 years has not been determined. Clinical correlation isessential. Performed By: #### L 501.9520, L500.2500, L100.0100 ####[facility] [address] [place], [address] EST GFR - AA 25 mL/min Low >60 [facility] Comment on above: Order Comment: 103.1 Result Comment: Afri can [place] GFR Calc Performed By: #### L 501.9520, L500.2500, L100.0100 ####[facility] [address] [place], [address] GAP 3 Low 5-15 [facility] Comment on above: Order Comment: 103.1 Performed By: #### L 501.9520, L500.2500, L100.0100 ####[facility] [address] [place], [address] GFR/1.73 sq M.predicted among non-blacks MDRD (S/P/Bld) [Vol rate/Area] 21 mL/min/{1.73_m2} Low >60 [facility] Comment on above: Order Comment: 103.1 Result Comment: Non- GFR Calc Performed By: #### L 501.9520, L500.2500, L100.0100 ####[facility] [address] [place], [address] Glucose [Mass/Vol] 84 mg/dL Normal 74-106 [facility] Comment on above: Order Comment: 103.1 Performed By: #### L 501.9520, L500.2500, L100.0100 ####[facility] [address] [place], [address] Potassium [Moles/Vol] 4.6 mmol/L Normal 3.5-5.1 [facility] Comment on above: Order Comment: 103.1 Performed By: #### L 501.9520, L500.2500, L100.0100 ####[facility] [address] [place], [address] Sodium [Moles/Vol] 136 mmol/L Normal 136-145 [facility] Comment on above: Order Comment: 103.1 Performed By: #### L 501.9520, L500.2500, L100.0100 ####[facility] [address] [place], [address] Urea nitrogen [Mass/Vol] 39 mg/dL High 7-18 [facility] Comment on above: Order Comment: 103.1 Performed By: #### L 501.9520, L500.2500, L100.0100 ####[facility] [address] [place], [address] Basophil percentageOrdered B y: Millie Massey on 06-25-2024 Basophils/100 WBC (Bld) 0.7 % 0-1 [facility] Basophil percentage 0.7 % 0-1 [facility] Blood urea nitrogen (BUN)/cr eatinine ratioOrdered By: Millie Massey on 06-25-2024 Blood urea nitrogen (BUN)/creatinine ratio 15.7 RATIO 10- [facility] CBC W/Diff, Automatedon - Absolute Lymph 0.69 X10 3/uL Low 0.83-4.51 [facility] Comment on above: Order Comment: 103.1 Performed By: #### L 501.9520, L500.2500, L100.0100 ####[facility] [address] [place], [address] Absolute Neut 2.8 X10 3/uL Normal 2.0-7.7 [facility] Comment on above: Order Comment: 103.1 Performed By: #### L 501.9520, L500.2500, L100.0100 ####[facility] [address] [place], [address] Basophils/100 WBC (Bld) 0.7 % Normal 0-1 [facility] Comment on above: Order Comment: 103.1 Performed By: #### L 501.9520, L500.2500, L100.0100 ####[facility] [address] [place], [address] Eosinophils/100 WBC (Bld) 3.2 % Normal 0-5 [facility] Comment on above: Order Comment: 103.1 Performed By: #### L 501.9520, L500.2500, L100.0100 ####[facility] [address] [place], [address] Erythrocyte distribution width (RBC) [Ratio] 16.0 % High 11.6-14.6 [facility] Comment on above: Order Comment: 103.1 Performed By: #### L 501.9520, L500.2500, L100.0100 ####[facility] [address] [place], [address] Hematocrit (Bld) [Volume fraction] 31.2 % Low 37-47 [facility] Comment on above: Order Comment: 103.1 Performed By: #### L 501.9520, L500.2500, L100.0100 ####[facility] [address] [place], [address] Hemoglobin (Bld) [Mass/Vol] 9.4 g/dL Low 12.0-15.0 [facility] Comment on above: Order Comment: 103.1 Performed By: #### L 501.9520, L500.2500, L100.0100 ####[facility] [address] [place], [address] IG% 2.900 High 0.0-0.9 [facility] Comment on above: Order Comment: 103.1 Result Comment: IG% - Immature Granulocytes (promyelocytes, myelocytes andmetamyelocytes) > 1% indicates that a LEFT SHIFT is Present. Performed By: #### L 501.9520, L500.2500, L100.0100 ####[facility] [address] [place], [address] Lymphocytes/100 WBC (Bld) 15.6 % Low 19-41 [facility] Comment on above: Order Comment: 103.1 Performed By: #### L 501.9520, L500.2500, L100.0100 ####[facility] [address] [place], [address] MCH (RBC) [Entitic mass] 27.1 pg Normal 27.0-32.0 [facility] Comment on above: Order Comment: 103.1 Performed By: #### L 501.9520, L500.2500, L100.0100 ####[facility] [address] [place], [address] MCHC (RBC) [Mass/Vol] 30.1 g/dL Low 32-36 [facility] Comment on above: Order Comment: 103.1 Performed By: #### L 501.9520, L500.2500, L100.0100 ####[facility] [address] [place], [address] MCV (RBC) [Entitic vol] 89.9 fL Normal 81-99 [facility] Comment on above: Order Comment: 103.1 Performed By: #### L 501.9520, L500.2500, L100.0100 ####[facility] [address] [place], [address] Monocytes/100 WBC (Bld) 13.8 % High 0-10 [facility] Comment on above: Order Comment: 103.1 Performed By: #### L 501.9520, L500.2500, L100.0100 ####[facility] [address] [place], [address] Neutrophils/100 WBC (Bld) 63.8 % Normal 47-70 [facility] Comment on above: Order Comment: 103.1 Performed By: #### L 501.9520, L500.2500, L100.0100 ####[facility] [address] [place], [address] Nucleated RBC (Bld) [#/Vol] 0 10*3/uL Normal 0-5 [facility] Comment on above: Order Comment: 103.1 Performed By: #### L 501.9520, L500.2500, L100.0100 ####[facility] [address] [place], [address] Platelet mean volume (Bld) [Entitic vol] 9.4 fL Normal 6.2-12.0 [facility] Comment on above: Order Comment: 103.1 Performed By: #### L 501.9520, L500.2500, L100.0100 ####[facility] [address] [place], [address] Platelets (Bld) [#/Vol] 142 10*3/uL Low 150-450 [facility] Comment on above: Order Comment: 103.1 Performed By: #### L 501.9520, L500.2500, L100.0100 ####[facility] [address] [place], [address] RBC (Bld) [#/Vol] 3.47 10*6/uL Low 4.2-5.4 [facility] Comment on above: Order Comment: 103.1 Performed By: #### L 501.9520, L500.2500, L100.0100 ####[facility] [address] [place], [address] RDW SD 52.8 fl High 35.1-43.9 [facility] Comment on above: Order Comment: 103.1 Performed By: #### L 501.9520, L500.2500, L100.0100 ####[facility] [address] [place], [address] WBC (Bld) [#/Vol] 4.4 10*3/uL Normal 4.4-11.0 [facility] Comment on above: Order Comment: 103.1 Performed By: #### L 501.9520, L500.2500, L100.0100 ####[facility] [address] [place], [address] Calcium [Mass/Vol]Ordered By : Millie Massey on 06-25-2024 Serum or plasma calcium measurement (mass/volume) 8.5 mg/dL 8.5-10.1 [facility] Carbon dioxide measurementOr dered By: Millie Massey on 06-25-2024 CO2 [Moles/Vol] 29.0 mmol/L 21.0-32.0 [facility] Carbon dioxide measurement 29.0 mmol/L 21.0-32.0 [facility] Chloride measurementOrdered By: Millie Massey on 06-25-2024 Chloride [Moles/Vol] 104 mmol/L 98-107 [facility] Chloride measurement 104 mmol/L 98-107 [facility] Creatinine [Mass/Vol]Ordered By: Millie Massey on 06-25-2024 Serum or plasma creatinine measurement (mass/volume) 2.48 mg/dL High 0.55-1.02 [facility] Eosinophil percentageOrdered By: Millie Massey on 06-25-2024 Eosinophils/100 WBC (Bld) 3.2 % 0-5 [facility] Eosinophil percentage 3.2 % 0-5 [facility] Erythrocyte distribution wid th (RBC) [Ratio]Ordered By: Millie Massey on 06-25-2024 Erythrocyte distribution width ratio 16.0 % High 11.6-14.6 [facility] Erythrocyte distribution wid th ratioOrdered By: Millie Massey on 06-25-2024 Erythrocyte distribution width (RBC) [Ratio] 16.0 % High 11.6-14.6 [facility] Erythrocyte distribution wid th standard deviationOrdered By: Millie Massey on 06-25-2024 Erythrocyte distribution width (RBC) [Ratio] 52.8 fl High 35.1-43.9 [facility] Erythrocyte distribution width standard deviation 52.8 fl High 35.1-43.9 [facility] Estimated glomerular filtrat ion rate (GFR) AmericanOrdered By: Millie Massey on 06-25-2024 Estimated glomerular filtration rate (GFR) 25 mL/min Low >60 [facility] Glomerular filtration rate ( GFR) estimationOrdered By: Millie Massey on 06-25-2024 GFR/1.73 sq M.predicted among non-blacks MDRD (S/P/Bld) [Vol rate/Area] 21 mL/min/{1.73_m2} Low >60 [facility] Glomerular filtration rate (GFR) estimation 21 mL/min Low >60 [facility] Glucose measurementOrdered B y: Millie Massey on 06-25-2024 Glucose [Mass/Vol] 84 mg/dL 74-106 [facility] Glucose measurement 84 mg/dL 74-106 [facility] Hematocrit Auto (Bld) [Volum e fraction]Ordered By: Millie Massey on 06-25-2024 Hematocrit (Bld) [Volume fraction] 31.2 % Low 37-47 [facility] Automated blood hematocrit (percentage) 31.2 % Low 37-47 [facility] Hemoglobin measurementOrdere d By: Millie Massey on 06-25-2024 Hemoglobin (Bld) [Mass/Vol] 9.4 g/dL Low 12.0-15.0 [facility] Hemoglobin measurement 9.4 g/dL Low 12.0-15.0 [facility] Immature granulocytes/100 WB C Auto (Bld)Ordered By: Millie Massey on 06-25-2024 Immature granulocytes/100 WBC (Bld) 2.900 % High 0.0-0.9 [facility] Automated immature granulocyte percentage 2.900 % High 0.0-0.9 [facility] Lymphocytes Auto (Unsp spec) [#/Vol]Ordered By: Millie Massey on 06-25-2024 Absolute lymphocyte count 0.69 X10^3/uL Low 0.83-4.51 [facility] Lymphocytes/100 WBC Auto (Un sp spec)Ordered By: Millie Massey on 06-25-2024 Automated lymphocyte count as percentage of total leukocytes 15.6 % Low 19-41 [facility] MCV (RBC) [Entitic vol]Order ed By: Millie Massey on 06-25-2024 MCV (mean corpuscular volume) determination 89.9 fL 81-99 [facility] MCV (mean corpuscular volume ) determinationOrdered By: Millie Massey on 06-25-2024 MCV (RBC) [Entitic vol] 89.9 fL 81-99 [facility] Mean corpuscular hemoglobin (MCH) determinationOrdered By: Millie Massey on 06-25-2024 MCH (RBC) [Entitic mass] 27.1 pg 27.0-32.0 [facility] Mean corpuscular hemoglobin (MCH) determination 27.1 pg 27.0-32.0 [facility] Mean corpuscular hemoglobin concentration (MCHC) determinationOrdered By: Millie Massey on 06-25-2024 Mean corpuscular hemoglobin concentration (MCHC) determination 30.1 g/dL Low 32-36 [facility] Mean platelet volume determi nationOrdered By: Millie Massey on 06-25-2024 Mean platelet volume determination 9.4 fl 6.2-12.0 [facility] Monocyte percentageOrdered B y: Millie Massey on 06-25-2024 Monocytes/100 WBC (Bld) 13.8 % High 0-10 [facility] Monocyte percentage 13.8 % High 0-10 [facility] Neutrophil percentageOrdered By: Millie Massey on 06-25-2024 Neutrophils/100 WBC (Bld) 63.8 % 47-70 [facility] Neutrophil percentage 63.8 % 47-70 [facility] Nucleated red blood cell per centageOrdered By: Millie Massey on 06-25-2024 Nucleated red blood cell percentage 0 % 0-5 [facility] Platelet countOrdered By: Carter Massey on 06-25-2024 Platelets (Bld) [#/Vol] 142 10*3/uL Low 150-450 [facility] Platelet count 142 K/mm3 Low 150-450 [facility] Potassium measurementOrdered By: Millie Massey on 06-25-2024 Potassium [Moles/Vol] 4.6 mmol/L 3.5-5.1 [facility] Potassium measurement 4.6 mmol/L 3.5-5.1 [facility] RBC Auto (Bld) [#/Vol]Ordere d By: Millie Massey on 06-25-2024 RBC (Bld) [#/Vol] 3.47 10*6/uL Low 4.2-5.4 [facility] Automated blood erythrocyte count 3.47 M/mm3 Low 4.2-5.4 [facility] Serum anion gap measurementO rdered By: Millie Massey on 06-25-2024 Serum anion gap measurement 3 Low 5-15 [facility] Serum or plasma calcium megan urement (mass/volume)Ordered By: Millie Massey on 06-25-2024 Calcium [Mass/Vol] 8.5 mg/dL 8.5-10.1 [facility] Serum or plasma creatinine m easurement (mass/volume)Ordered By: Millie Massey on 06-25-2024 Creatinine [Mass/Vol] 2.48 mg/dL High 0.55-1.02 [facility] Serum or plasma thyroid stim ulating hormone (TSH) measurement (units/volume)Ordered By: Millie Massey on 06-25-2024 TSH Qn 0.679 uIU/mL 0.358-3.74 0 [facility] Serum or plasma urea nitroge n measurement (mass/volume)Ordered By: Millie Massey on 06-25-2024 Urea nitrogen [Mass/Vol] 39 mg/dL High 7-18 [facility] Sodium levelOrdered By: Silvana Massey on 06-25-2024 Sodium [Moles/Vol] 136 mmol/L 136-145 [facility] Sodium level 136 mmol/L 136-145 [facility] TSH QnOrdered By: Millie little on 06-25-2024 Serum or plasma thyroid stimulating hormone (TSH) measurement (units/volume) 0.679 uIU/mL 0.358-3.74 0 [facility] Thyroid Stim Hormone (TSH)on 06-25-2024 TSH 0.679 uIU/mL Normal 0.358-3.74 0 [facility] Comment on above: Order Comment: 103.1 Performed By: #### L 501.9520, L500.2500, L100.0100 ####[facility] [address] [place], [place], [id number] Urea nitrogen [Mass/Vol]Orde red By: Millie Massey on 06-25-2024 Serum or plasma urea nitrogen measurement (mass/volume) 39 mg/dL High [facility] Urine Cultureon 06-25-2024 URC Normal [facility] Comment on above: Performed By: #### M 100.2200, L400.0001 ####[facility] [address] [place], [place], [address] White blood cell (WBC) count Ordered By: Millie Massey on 06-25-2024 WBC (Bld) [#/Vol] 4.4 10*3/uL 4.4-11.0 [facility] White blood cell (WBC) count 4.4 K/mm3 4.4-11.0 [facility] Absolute lymphocyte countOrd ered By: Millie Massey on 06-24-2024 Lymphocytes Auto (Unsp spec) [#/Vol] 0.73 10*3/uL Low 0.83-4.51 [facility] Absolute neutrophil countOrd ered By: Millie Massey on 06-24-2024 Absolute neutrophil count 3.9 X10^3/uL 2.0-7.7 [facility] Automated lymphocyte count a s percentage of total leukocytesOrdered By: Millie Massey on 06-24-2024 Lymphocytes/100 WBC Auto (Unsp spec) 13.7 % Low 19-41 [facility] Basic Metabolic Profile (BMP )on 06-24-2024 BUN/CRE 16.4 RATIO Normal 10-20 [facility] Comment on above: Order Comment: 103-1 Performed By: #### L 100.0100, L500.2500 ####[facility] [address] [place], [address] CA,Total 9.1 mg/dL Normal 8.5-10.1 [facility] Comment on above: Order Comment: 103-1 Performed By: #### L 100.0100, L500.2500 ####[facility] [address] [place], [address] Chloride [Moles/Vol] 104 mmol/L Normal 98-107 [facility] Comment on above: Order Comment: 103- Performed By: #### L 100.0100, L500.2500 ####[facility] [address] [place], [address] CO2 [Moles/Vol] 27.0 mmol/L Normal 21.0-32.0 [facility] Comment on above: Order Comment: 103-1 Performed By: #### L 100.0100, L500.2500 ####[facility] [address] [place], [address] Creatinine [Mass/Vol] 2.92 mg/dL High 0.55-1.02 [facility] Comment on above: Order Comment: 103-1 Result Comment: The validity of the calculated GFR GFRAA in patients over70 years has not been determined. Clinical correlation isessential. Performed By: #### L 100.0100, L500.2500 ####[facility] [address] [place], [address] EST GFR - AA 21 mL/min Low >60 [facility] Comment on above: Order Comment: 103- Result Comment: Afri can [place] GFR Calc Performed By: #### L 100.0100, L500.2500 ####[facility] [address] [place], [address] GAP 5 Normal 5-15 [facility] Comment on above: Order Comment: 103-1 Performed By: #### L 100.0100, L500.2500 ####[facility] [address] [place], [address] GFR/1.73 sq M.predicted among non-blacks MDRD (S/P/Bld) [Vol rate/Area] 17 mL/min/{1.73_m2} Low >60 [facility] Comment on above: Order Comment: - Result Comment: Non- GFR Calc Performed By: #### L 100.0100, L500.2500 ####[facility] [address] [place], [address] Glucose [Mass/Vol] 71 mg/dL Low 74-106 [facility] Comment on above: Order Comment: 103-1 Performed By: #### L 100.0100, L500.2500 ####[facility] [address] [place], [address] Potassium [Moles/Vol] 5.6 mmol/L High 3.5-5.1 [facility] Comment on above: Order Comment: 103-1 Performed By: #### L 100.0100, L500.2500 ####[facility] [address] [place], [address] Sodium [Moles/Vol] 137 mmol/L Normal 136-145 [facility] Comment on above: Order Comment: 103-1 Performed By: #### L 100.0100, L500.2500 ####[facility] [address] [place], [address] Urea nitrogen [Mass/Vol] 48 mg/dL High 7-18 [facility] Comment on above: Order Comment: 103-1 Performed By: #### L 100.0100, L500.2500 ####[facility] [address] [place], [address] Basophil percentageOrdered B y: Millie Alyjames on 06-24-2024 Basophils/100 WBC (Bld) 1.3 % High 0-1 [facility] Basophil percentage 1.3 % High 0-1 [facility] Blood urea nitrogen (BUN)/cr eatinine ratioOrdered By: Millie Massey on 06-24-2024 Blood urea nitrogen (BUN)/creatinine ratio 16.4 RATIO 10-20 [facility] CBC W/Diff, Automatedon 05-30 Absolute Lymph 0.73 X10 3/uL Low 0.83-4.51 [facility] Comment on above: Order Comment: 103-1 Performed By: #### L 100.0100, L500.2500 ####[facility] [address] [place], [address] Absolute Neut 3.9 X10 3/uL Normal 2.0-7.7 [facility] Comment on above: Order Comment: 103-1 Performed By: #### L 100.0100, L500.2500 ####[facility] [address] [place], [address] Basophils/100 WBC (Bld) 1.3 % High 0-1 [facility] Comment on above: Order Comment: 103-1 Performed By: #### L 100.0100, L500.2500 ####[facility] [address] [place], [address] Eosinophils/100 WBC (Bld) 2.6 % Normal 0-5 [facility] Comment on above: Order Comment: 103-1 Performed By: #### L 100.0100, L500.2500 ####[facility] [address] [place], [address] Erythrocyte distribution width (RBC) [Ratio] 15.9 % High 11.6-14.6 [facility] Comment on above: Order Comment: 103-1 Performed By: #### L 100.0100, L500.2500 ####[facility] [address] [place], [address] Hematocrit (Bld) [Volume fraction] 41.4 % Normal 37-47 [facility] Comment on above: Order Comment: 103-1 Performed By: #### L 100.0100, L500.2500 ####[facility] [address] [place], [address] Hemoglobin (Bld) [Mass/Vol] 12.8 g/dL Normal 12.0-15.0 [facility] Comment on above: Order Comment: 103-1 Performed By: #### L 100.0100, L500.2500 ####[facility] [address] [place], [address] IG% 2.100 High 0.0-0.9 [facility] Comment on above: Order Comment: 103-1 Result Comment: IG% - Immature Granulocytes (promyelocytes, myelocytes andmetamyelocytes) > 1% indicates that a LEFT SHIFT is Present. Performed By: #### L 100.0100, L500.2500 ####[facility] [address] [place], [address] Lymphocytes/100 WBC (Bld) 13.7 % Low 19-41 [facility] Comment on above: Order Comment: 103-1 Performed By: #### L 100.0100, L500.2500 ####[facility] [address] [place], [address] MCH (RBC) [Entitic mass] 27.9 pg Normal 27.0-32.0 [facility] Comment on above: Order Comment: 103-1 Performed By: #### L 100.0100, L500.2500 ####[facility] [address] [place], [address] MCHC (RBC) [Mass/Vol] 30.9 g/dL Low 32-36 [facility] Comment on above: Order Comment: 103-1 Performed By: #### L 100.0100, L500.2500 ####[facility] [address] [place], [address] MCV (RBC) [Entitic vol] 90.2 fL Normal 81-99 [facility] Comment on above: Order Comment: 103-1 Performed By: #### L 100.0100, L500.2500 ####[facility] [address] [place], [address] Monocytes/100 WBC (Bld) 7.7 % Normal 0-10 [facility] Comment on above: Order Comment: 103-1 Performed By: #### L 100.0100, L500.2500 ####[facility] [address] [place], [address] Neutrophils/100 WBC (Bld) 72.6 % High 47-70 [facility] Comment on above: Order Comment: 103-1 Performed By: #### L 100.0100, L500.2500 ####[facility] [address] [place], [address] Nucleated RBC (Bld) [#/Vol] 0 10*3/uL Normal 0-5 [facility] Comment on above: Order Comment: 103-1 Performed By: #### L 100.0100, L500.2500 ####[facility] [address] [place], [address] Platelet mean volume (Bld) [Entitic vol] 10.0 fL Normal 6.2-12.0 [facility] Comment on above: Order Comment: 103-1 Performed By: #### L 100.0100, L500.2500 ####[facility] [address] [place], [address] Platelets (Bld) [#/Vol] 170 10*3/uL Normal 150-450 [facility] Comment on above: Order Comment: 103-1 Performed By: #### L 100.0100, L500.2500 ####[facility] [address] [place], [address] RBC (Bld) [#/Vol] 4.59 10*6/uL Normal 4.2-5.4 [facility] Comment on above: Order Comment: 103-1 Performed By: #### L 100.0100, L500.2500 ####[facility] [address] [place], [address] RDW SD 52.3 fl High 35.1-43.9 [facility] Comment on above: Order Comment: 103-1 Performed By: #### L 100.0100, L500.2500 ####[facility] [address] [place], [address] WBC (Bld) [#/Vol] 5.3 10*3/uL Normal 4.4-11.0 [facility] Comment on above: Order Comment: 103-1 Performed By: #### L 100.0100, L500.2500 ####[facility] [address] [place], [address] Calcium [Mass/Vol]Ordered By : Millie Massey on 06-24-2024 Serum or plasma calcium measurement (mass/volume) 9.1 mg/dL 8.5-10.1 [facility] Carbon dioxide measurementOr dered By: Millie Massey on 06-24-2024 CO2 [Moles/Vol] 27.0 mmol/L 21.0-32.0 [facility] Carbon dioxide measurement 27.0 mmol/L 21.0-32.0 [facility] Chloride measurementOrdered By: Millie Massey on 06-24-2024 Chloride [Moles/Vol] 104 mmol/L 98-107 [facility] Chloride measurement 104 mmol/L 98-107 [facility] Creatinine [Mass/Vol]Ordered By: Millie Massey on 06-24-2024 Serum or plasma creatinine measurement (mass/volume) 2.92 mg/dL High 0.55-1.02 [facility] Eosinophil percentageOrdered By: Millie Massey on 06-24-2024 Eosinophils/100 WBC (Bld) 2.6 % 0-5 [facility] Eosinophil percentage 2.6 % 0-5 [facility] Erythrocyte distribution wid th (RBC) [Ratio]Ordered By: Millie Massey on 06-24-2024 Erythrocyte distribution width ratio 15.9 % High 11.6-14.6 [facility] Erythrocyte distribution wid th ratioOrdered By: Millie Massey on 06-24-2024 Erythrocyte distribution width (RBC) [Ratio] 15.9 % High 11.6-14.6 [facility] Erythrocyte distribution wid th standard deviationOrdered By: Millie Massey on 06-24-2024 Erythrocyte distribution width (RBC) [Ratio] 52.3 fl High 35.1-43.9 [facility] Erythrocyte distribution width standard deviation 52.3 fl High 35.1-43.9 [facility] Estimated glomerular filtrat ion rate (GFR) AmericanOrdered By: Millie Massey on 06-24-2024 Estimated glomerular filtration rate (GFR) 21 mL/min Low >60 [facility] Glomerular filtration rate ( GFR) estimationOrdered By: Millie Massey on 06-24-2024 GFR/1.73 sq M.predicted among non-blacks MDRD (S/P/Bld) [Vol rate/Area] 17 mL/min/{1.73_m2} Low >60 [facility] Glomerular filtration rate (GFR) estimation 17 mL/min Low >60 [facility] Glucose measurementOrdered B y: Millie Massey on 06-24-2024 Glucose [Mass/Vol] 71 mg/dL Low 74-106 [facility] Glucose measurement 71 mg/dL Low 74-106 [facility] Hematocrit Auto (Bld) [Volum e fraction]Ordered By: Millie Massey on 06-24-2024 Hematocrit (Bld) [Volume fraction] 41.4 % 37-47 [facility] Automated blood hematocrit (percentage) 41.4 % 37-47 [facility] Hemoglobin measurementOrdere d By: Millie Massey on 06-24-2024 Hemoglobin (Bld) [Mass/Vol] 12.8 g/dL 12.0-15.0 [facility] Hemoglobin measurement 12.8 g/dL 12.0-15.0 [facility] Immature granulocytes/100 WB C Auto (Bld)Ordered By: Millei Massey on 06-24-2024 Immature granulocytes/100 WBC (Bld) 2.100 % High 0.0-0.9 [facility] Automated immature granulocyte percentage 2.100 % High 0.0-0.9 [facility] Lymphocytes Auto (Unsp spec) [#/Vol]Ordered By: Millie Massey on 06-24-2024 Absolute lymphocyte count 0.73 X10^3/uL Low 0.83-4.51 [facility] Lymphocytes/100 WBC Auto (Un sp spec)Ordered By: Millie Massey on 06-24-2024 Automated lymphocyte count as percentage of total leukocytes 13.7 % Low 19-41 [facility] MCV (RBC) [Entitic vol]Order ed By: Millie Massey on 06-24-2024 MCV (mean corpuscular volume) determination 90.2 fL 81-99 [facility] MCV (mean corpuscular volume ) determinationOrdered By: Millie Massey on 06-24-2024 MCV (RBC) [Entitic vol] 90.2 fL 81-99 [facility] Mean corpuscular hemoglobin (MCH) determinationOrdered By: Millie Massey on 06-24-2024 MCH (RBC) [Entitic mass] 27.9 pg 27.0-32.0 [facility] Mean corpuscular hemoglobin (MCH) determination 27.9 pg 27.0-32.0 [facility] Mean corpuscular hemoglobin concentration (MCHC) determinationOrdered By: Millie Massey on 06-24-2024 Mean corpuscular hemoglobin concentration (MCHC) determination 30.9 g/dL Low 32-36 [facility] Mean platelet volume determi nationOrdered By: Millie Massey on 06-24-2024 Mean platelet volume determination 10.0 fl 6.2-12.0 [facility] Monocyte percentageOrdered B y: Millie Massey on 06-24-2024 Monocytes/100 WBC (Bld) 7.7 % 0-10 [facility] Monocyte percentage 7.7 % 0-10 [facility] Neutrophil percentageOrdered By: Millie Massey on 06-24-2024 Neutrophils/100 WBC (Bld) 72.6 % High 47-70 [facility] Neutrophil percentage 72.6 % High 47-70 [facility] Nucleated red blood cell per centageOrdered By: Millie Massey on 06-24-2024 Nucleated red blood cell percentage 0 % 0-5 [facility] Platelet countOrdered By: Carter Massey on 06-24-2024 Platelets (Bld) [#/Vol] 170 10*3/uL 150-450 [facility] Platelet count 170 K/mm3 150-450 [facility] Potassium measurementOrdered By: Millie Massey on 06-24-2024 Potassium [Moles/Vol] 5.6 mmol/L High 3.5-5.1 [facility] Potassium measurement 5.6 mmol/L High 3.5-5.1 [facility] RBC Auto (Bld) [#/Vol]Ordere d By: Millie Massey on 06-24-2024 RBC (Bld) [#/Vol] 4.59 10*6/uL 4.2-5.4 [facility] Automated blood erythrocyte count 4.59 M/mm3 4.2-5.4 [facility] Serum anion gap measurementO rdered By: Millie Massey on 06-24-2024 Serum anion gap measurement 5 5-15 [facility] Serum or plasma calcium megan urement (mass/volume)Ordered By: Millie Massey on 06-24-2024 Calcium [Mass/Vol] 9.1 mg/dL 8.5-10.1 [facility] Serum or plasma creatinine m easurement (mass/volume)Ordered By: Millie Massey on 06-24-2024 Creatinine [Mass/Vol] 2.92 mg/dL High 0.55-1.02 [facility] Serum or plasma urea nitroge n measurement (mass/volume)Ordered By: Millie Massey on 06-24-2024 Urea nitrogen [Mass/Vol] 48 mg/dL High 12-13 [facility] Sodium levelOrdered By: Silvana Massey on 06-24-2024 Sodium [Moles/Vol] 137 mmol/L 136-145 [facility] Sodium level 137 mmol/L 136-145 [facility] Urea nitrogen [Mass/Vol]Orde red By: Millie Massey on 06-24-2024 Serum or plasma urea nitrogen measurement (mass/volume) 48 mg/dL High 12-13 [facility] White blood cell (WBC) count Ordered By: Millie Massey on 06-24-2024 WBC (Bld) [#/Vol] 5.3 10*3/uL 4.4-11.0 [facility] White blood cell (WBC) count 5.3 K/mm3 4.4-11.0 [facility] Urinalysis, Completeon 06-22 BACTERIA 4+ /hpf Normal None Seen [facility] Comment on above: Order Comment: Urine , Random Performed By: #### M 100.2200, L400.0001 ####[facility] [address] [place], [address] CA OX CRYSTAL 1+ /hpf Normal [facility] Comment on above: Order Comment: Urine , Random Performed By: #### M 100.2200, L400.0001 ####[facility] [address] [place], [address] EPI,SQUAMOUS 0-5 SEEN Normal 5-10 [facility] Comment on above: Order Comment: Urine , Random Performed By: #### M 100.2200, L400.0001 ####[facility] [address] [place], [address] WBC >100 SEEN Normal 0-5 [facility] Comment on above: Order Comment: Urine , Random Performed By: #### M 100.2200, L400.0001 ####[facility] [address] [place], [address] Mucus Ql (Urine sed) 0 SEEN Normal [facility] Comment on above: Order Comment: Urine , Random Performed By: #### M 100.2200, L400.0001 ####[facility] [address] [place], [address] RBC 0 SEEN Normal 0-5 [facility] Comment on above: Order Comment: Urine , Random Performed By: #### M 100.2200, L400.0001 ####[facility] [address] [place], [address] Bacteria LM.HPF (Urine sed) [#/Area]Ordered By: Millie Massey on 06-21-2024 Urine sediment bacteria count by microscopy (number/high power field) 4+ /hpf None Seen [facility] Bilirubin Test strip Ql (U)O rdered By: Millie Massey on 06-21-2024 Bilirubin Ql (U) Negative Negative [facility] Calcium oxalate crystals LM Ql (Urine sed)Ordered By: Millie Massey on 06-21-2024 Calcium oxalate crystals detection in urine sediment by light microscopy 1+ /hpf [facility] Calcium oxalate crystals det ection in urine sediment by light microscopyOrdered By: Millie Massey on 06-21-2024 Calcium oxalate crystals LM Ql (Urine sed) 1+ /hpf [facility] Clarity (U)Ordered By: Krystle Massey on 06-21-2024 Urine clarity Turbid Clear [facility] Color (U)Ordered By: Millie Massey on 06-21-2024 Urine color determination Yellow Yellow [facility] Epithelial cells.squamous LM Ql (Urine sed)Ordered By: Millei Massey on 06-21-2024 Squamous epithelial cells detection in urine sediment by light microscopy 0-5 SEEN /hpf 5-10 [facility] Ketones Test strip Ql (U)Ord ered By: Millie Massey on 06-21-2024 Ketones Ql (U) Negative Negative [facility] Leukocyte esterase Test stri p Ql (U)Ordered By: Millie Massey on 06-21-2024 Urine leukocyte esterase detection by dipstick 500 /ul High Negative [facility] Microscopic analysis of urin e for red blood cells (RBC)Ordered By: Millie Massey on 06-21-2024 Microscopic analysis of urine for red blood cells (RBC) 0 SEEN /hpf [facility] Mucus LM Ql (Urine sed)Order ed By: Millie Massey on 06-21-2024 Mucus Ql (Urine sed) 0 SEEN /hpf [facility] Nitrite Test strip Ql (U)Ord ered By: Millie Massey on 06-21-2024 Nitrite Ql (U) Negative Negative [facility] Protein Test strip Ql (U)Ord ered By: Millie Massey on 06-21-2024 Protein Ql (U) 100 mg/dl High Negative [facility] Urine protein assay by test strip, semi-quantitative 100 mg/dl High Negative [facility] Specific gravity (U) [Rel de nsity]Ordered By: Millie Massey on 06-21-2024 Urine specific gravity measurement 1.010 1.002-1.03 0 [facility] Squamous epithelial cells de tection in urine sediment by light microscopyOrdered By: Millie Massey on 06-21-2024 Epithelial cells.squamous LM Ql (Urine sed) 0-5 SEEN /hpf 5-10 [facility] Urine blood detectionOrdered By: Millie Massey on 06-21-2024 Urine blood detection 50 /ul High Negative [facility] Urine clarityOrdered By: Lesli Massey on 06-21-2024 Clarity (U) Turbid Clear [facility] Urine color determinationOrd ered By: Millie Massey on 06-21-2024 Color (U) Yellow Yellow [facility] Urine cultureOrdered By: Lesli Massey on 06-21-2024 Bacteria identified Cx Nom (U) Klebsiella oxytoca Abnormal [facility] Bacteria identified Cx Nom (U) Serratia ficaria Abnormal [facility] Urine culture Klebsiella oxytoca Abnormal [facility] Urine culture Serratia ficaria Abnormal [facility] Urine glucose detectionOrder ed By: Millie Massey on 06-21-2024 Glucose Ql (U) Normal mg/dl Normal [facility] Urine glucose detection Normal mg/dl Normal [facility] Urine leukocyte esterase det ection by dipstickOrdered By: Millie Massey on 06-21-2024 Leukocyte esterase Test strip Ql (U) 500 /ul High Negative [facility] Urine pHOrdered By: Millie Retana udla on 06-21-2024 pH (U) 8.0 [pH] 5.0 - 8.0 [facility] Urine sediment bacteria coun t by microscopy (number/high power field)Ordered By: Millie Massey on 06-21-2024 Bacteria LM.HPF (Urine sed) [#/Area] 4 /[HPF] None Seen [facility] Urine specific gravity measu rementOrdered By: Millie Massey on 06-21-2024 Specific gravity (U) [Rel density] 1.010 1.002-1.03 0 [facility] Urine total bilirubin detect ion by test stripOrdered By: Millie Massey on 06-21-2024 Urine total bilirubin detection by test strip Negative Negative [facility] Urine urobilinogen measureme ntOrdered By: Millie Massey on 06-21-2024 Urobilinogen Ql (U) Normal mg/dl Normal [facility] White blood cell countOrdere d By: Millie Massey on 06-21-2024 White blood cell count >100 SEEN /hpf 0-5 [facility] White blood cell count >100 SEEN /hpf 0-5 [facility] pH (U)Ordered By: Millie little on 06-21-2024 Urine pH 8.0 5.0 - 8.0 [facility] Basic Metabolic Profile (BMP )on 06-07-2024 BUN/CRE 12.1 RATIO Normal 10-20 [facility] Comment on above: Order Comment: 103-1 Performed By: #### L 500.2500 ####[facility] [address] [place], [address] CA,Total 8.6 mg/dL Normal 8.5-10.1 [facility] Comment on above: Order Comment: 103-1 Performed By: #### L 500.2500 ####[facility] [address] [place], [address] Chloride [Moles/Vol] 107 mmol/L Normal 98-107 [facility] Comment on above: Order Comment: 103- Performed By: #### L 500.2500 ####[facility] [address] [place], [address] CO2 [Moles/Vol] 22.0 mmol/L Normal 21.0-32.0 [facility] Comment on above: Order Comment: - Performed By: #### L 500.2500 ####[facility] [address] [place], [address] Creatinine [Mass/Vol] 2.65 mg/dL High 0.55-1.02 [facility] Comment on above: Order Comment: - Result Comment: The validity of the calculated GFR GFRAA in patients over70 years has not been determined. Clinical correlation isessential. Performed By: #### L 500.2500 ####[facility] [address] [place], [address] EST GFR - AA 24 mL/min Low >60 [facility] Comment on above: Order Comment: - Result Comment: Afri can [place] GFR Calc Performed By: #### L 500.2500 ####[facility] [address] [place], [address] GAP 6 Normal 5-15 [facility] Comment on above: Order Comment: - Performed By: #### L 500.2500 ####[facility] [address] [place], [address] GFR/1.73 sq M.predicted among non-blacks MDRD (S/P/Bld) [Vol rate/Area] 19 mL/min/{1.73_m2} Low >60 [facility] Comment on above: Order Comment: 103- Result Comment: Non- GFR Calc Performed By: #### L 500.2500 ####[facility] [address] [place], [address] Glucose [Mass/Vol] 77 mg/dL Normal 74-106 [facility] Comment on above: Order Comment: 103-1 Performed By: #### L 500.2500 ####[facility] [address] [place], [address] Potassium [Moles/Vol] 5.3 mmol/L High 3.5-5.1 [facility] Comment on above: Order Comment: 103-1 Result Comment: Mode rate Hemolysis, Result may be falsely increased. Performed By: #### L 500.2500 ####[facility] [address] [place], [address] Sodium [Moles/Vol] 134 mmol/L Low 136-145 [facility] Comment on above: Order Comment: 103-1 Performed By: #### L 500.2500 ####[facility] [address] [place], [address] Urea nitrogen [Mass/Vol] 32 mg/dL High 7-18 [facility] Comment on above: Order Comment: 103- Performed By: #### L 500.2500 ####[facility] [address] [place], [address] Blood urea nitrogen (BUN)/cr eatinine ratioOrdered By: Millie Massey on 06-07-2024 Blood urea nitrogen (BUN)/creatinine ratio 12.1 RATIO 10-20 [facility] Calcium [Mass/Vol]Ordered By : Millie Massey on 06-07-2024 Serum or plasma calcium measurement (mass/volume) 8.6 mg/dL 8.5-10.1 [facility] Carbon dioxide measurementOr dered By: Millie Massey on 06-07-2024 Carbon dioxide measurement 22.0 mmol/L 21.0-32.0 [facility] Chloride measurementOrdered By: Millie Massey on 06-07-2024 Chloride measurement 107 mmol/L 98-107 [facility] Creatinine [Mass/Vol]Ordered By: Millie Massey on 06-07-2024 Serum or plasma creatinine measurement (mass/volume) 2.65 mg/dL High 0.55-1.02 [facility] Estimated glomerular filtrat ion rate (GFR) AmericanOrdered By: Millie Massey on 06-07-2024 Estimated glomerular filtration rate (GFR) 24 mL/min Low >60 [facility] Glomerular filtration rate ( GFR) estimationOrdered By: Millie Massey on 06-07-2024 Glomerular filtration rate (GFR) estimation 19 mL/min Low >60 [facility] Glucose measurementOrdered B y: Millie Massey on 06-07-2024 Glucose measurement 77 mg/dL 74-106 [facility] Potassium measurementOrdered By: Millie Massey on 06-07-2024 Potassium measurement 5.3 mmol/L High 3.5-5.1 [facility] Serum anion gap measurementO rdered By: Millie Massey on 06-07-2024 Serum anion gap measurement 6 5-15 [facility] Sodium levelOrdered By: Silvana Massey on 06-07-2024 Sodium level 134 mmol/L Low 136-145 [facility] Urea nitrogen [Mass/Vol]Orde red By: Millie Massey on 06-07-2024 Serum or plasma urea nitrogen measurement (mass/volume) 32 mg/dL High 7-18 [facility] Basic Metabolic Profile (BMP )on 06-06-2024 BUN/CRE 11.9 RATIO Normal 10-20 [facility] Comment on above: Performed By: #### L 500.2500 ####[facility] [address] [place], [address] CA,Total 8.5 mg/dL Normal 8.5-10.1 [facility] Comment on above: Performed By: #### L 500.2500 ####[facility] [address] [place], [address] Chloride [Moles/Vol] 104 mmol/L Normal 98-107 [facility] Comment on above: Performed By: #### L 500.2500 ####[facility] [address] [place], [address] CO2 [Moles/Vol] 25.0 mmol/L Normal 21.0-32.0 [facility] Comment on above: Performed By: #### L 500.2500 ####[facility] [address] [place], [address] Creatinine [Mass/Vol] 2.53 mg/dL High 0.55-1.02 [facility] Comment on above: Result Comment: The validity of the calculated GFR GFRAA in patients over70 years has not been determined. Clinical correlation isessential. Performed By: #### L 500.2500 ####[facility] [address] [place], [address] EST GFR - AA 25 mL/min Low >60 [facility] Comment on above: Result Comment: Afri can [place] GFR Calc Performed By: #### L 500.2500 ####[facility] [address] [place], [address] GAP 5 Normal 5-15 [facility] Comment on above: Performed By: #### L 500.2500 ####[facility] [address] [place], [address] GFR/1.73 sq M.predicted among non-blacks MDRD (S/P/Bld) [Vol rate/Area] 21 mL/min/{1.73_m2} Low >60 [facility] Comment on above: Result Comment: Non- GFR Calc Performed By: #### L 500.2500 ####[facility] [address] [place], [address] Glucose [Mass/Vol] 79 mg/dL Normal 74-106 [facility] Comment on above: Performed By: #### L 500.2500 ####[facility] [address] [place], [place], [id number] Potassium [Moles/Vol] 5.0 mmol/L Normal 3.5-5.1 [facility] Comment on above: Performed By: #### L 500.2500 ####[facility] [address] [place], [address] Sodium [Moles/Vol] 134 mmol/L Low 136-145 [facility] Comment on above: Performed By: #### L 500.2500 ####[facility] [address] [place], [place], [address] Urea nitrogen [Mass/Vol] 30 mg/dL High 7-18 [facility] Comment on above: Performed By: #### L 500.2500 ####[facility] [address] [place], [place], [id number] Blood urea nitrogen (BUN)/cr eatinine ratioOrdered By: Millie Massey on 06-06-2024 Blood urea nitrogen (BUN)/creatinine ratio 11.9 RATIO 10-20 [facility] Calcium [Mass/Vol]Ordered By : Millie Massey on 06-06-2024 Serum or plasma calcium measurement (mass/volume) 8.5 mg/dL 8.5-10.1 [facility] Carbon dioxide measurementOr dered By: Millie Massey on 06-06-2024 Carbon dioxide measurement 25.0 mmol/L 21.0-32.0 [facility] Chloride measurementOrdered By: Millie Massey on 06-06-2024 Chloride measurement 104 mmol/L 98-107 [facility] Creatinine [Mass/Vol]Ordered By: Millie Massey on 06-06-2024 Serum or plasma creatinine measurement (mass/volume) 2.53 mg/dL High 0.55-1.02 [facility] Estimated glomerular filtrat ion rate (GFR) AmericanOrdered By: Millie Massey on 06-06-2024 Estimated glomerular filtration rate (GFR) 25 mL/min Low >60 [facility] Glomerular filtration rate ( GFR) estimationOrdered By: Millie Massey on 06-06-2024 Glomerular filtration rate (GFR) estimation 21 mL/min Low >60 [facility] Glucose measurementOrdered B y: Millie Massey on 06-06-2024 Glucose measurement 79 mg/dL 74-106 [facility] Potassium measurementOrdered By: Millie Massey on 06-06-2024 Potassium measurement 5.0 mmol/L 3.5-5.1 [facility] Serum anion gap measurementO rdered By: Millie Massey on 06-06-2024 Serum anion gap measurement 5 5-15 [facility] Sodium levelOrdered By: Silvana Massey on 06-06-2024 Sodium level 134 mmol/L Low 136-145 [facility] Urea nitrogen [Mass/Vol]Orde red By: Millie Massey on 06-06-2024 Serum or plasma urea nitrogen measurement (mass/volume) 30 mg/dL High 7-18 [facility] MR/BMS.BVSon 06-05-2024 MR/BMS.BVS Normal [facility] Absolute neutrophil countOrd ered By: Millie Massey on 06-03-2024 Absolute neutrophil count 4.5 X10^3/uL 2.0-7.7 [facility] Basic Metabolic Profile (BMP )on 06-03-2024 BUN/CRE 14.6 RATIO Normal 10-20 [facility] Comment on above: Order Comment: 103.1 Performed By: #### L 100.0100, L500.2500, L501.6710 ####[facility] [address] [place], [address] CA,Total 8.7 mg/dL Normal 8.5-10.1 [facility] Comment on above: Order Comment: 103.1 Performed By: #### L 100.0100, L500.2500, L501.6710 ####[facility] [address] [place], [address] Chloride [Moles/Vol] 102 mmol/L Normal 98-107 [facility] Comment on above: Order Comment: 103.1 Performed By: #### L 100.0100, L500.2500, L501.6710 ####[facility] [address] [place], [address] CO2 [Moles/Vol] 24.0 mmol/L Normal 21.0-32.0 [facility] Comment on above: Order Comment: 103.1 Performed By: #### L 100.0100, L500.2500, L501.6710 ####[facility] [address] [place], [address] Creatinine [Mass/Vol] 2.40 mg/dL High 0.55-1.02 [facility] Comment on above: Order Comment: 103.1 Result Comment: The validity of the calculated GFR GFRAA in patients over70 years has not been determined. Clinical correlation isessential. Performed By: #### L 100.0100, L500.2500, L501.6710 ####[facility] [address] [place], [address] EST GFR - AA 26 mL/min Low >60 [facility] Comment on above: Order Comment: 103.1 Result Comment: Afri can [place] GFR Calc Performed By: #### L 100.0100, L500.2500, L501.6710 ####[facility] [address] [place], [address] GAP 6 Normal 5-15 [facility] Comment on above: Order Comment: 103.1 Performed By: #### L 100.0100, L500.2500, L501.6710 ####[facility] [address] [place], [address] GFR/1.73 sq M.predicted among non-blacks MDRD (S/P/Bld) [Vol rate/Area] 22 mL/min/{1.73_m2} Low >60 [facility] Comment on above: Order Comment: 103.1 Result Comment: Non- GFR Calc Performed By: #### L 100.0100, L500.2500, L501.6710 ####[facility] [address] [place], [address] Glucose [Mass/Vol] 87 mg/dL Normal 74-106 [facility] Comment on above: Order Comment: 103.1 Performed By: #### L 100.0100, L500.2500, L501.6710 ####[facility] [address] [place], [address] Potassium [Moles/Vol] 5.3 mmol/L High 3.5-5.1 [facility] Comment on above: Order Comment: 103.1 Performed By: #### L 100.0100, L500.2500, L501.6710 ####[facility] [address] [place], [address] Sodium [Moles/Vol] 132 mmol/L Low 136-145 [facility] Comment on above: Order Comment: 103.1 Performed By: #### L 100.0100, L500.2500, L501.6710 ####[facility] [address] [place], [address] Urea nitrogen [Mass/Vol] 35 mg/dL High 7-18 [facility] Comment on above: Order Comment: 103.1 Performed By: #### L 100.0100, L500.2500, L501.6710 ####[facility] [address] [place], [address] Blood urea nitrogen (BUN)/cr eatinine ratioOrdered By: Millie Massey on 06-03-2024 Blood urea nitrogen (BUN)/creatinine ratio 14.6 RATIO 10-20 [facility] C-reactive protein measureme nt by high sensitivity methodOrdered By: Millie Massey on 06-03-2024 C-reactive protein measurement by high sensitivity method 15.60 mg/L High 0.0-3.0 [facility] CBC W/Diff, Automatedon 01-0 Absolute Lymph 0.75 X10 3/uL Low 0.83-4.51 [facility] Comment on above: Order Comment: 103.1 Performed By: #### L 100.0100, L500.2500, L501.6710 ####[facility] [address] [place], [address] Absolute Neut 4.5 X10 3/uL Normal 2.0-7.7 [facility] Comment on above: Order Comment: 103.1 Performed By: #### L 100.0100, L500.2500, L501.6710 ####[facility] [address] [place], [address] Basophils/100 WBC (Bld) 1.0 % Normal 0-1 [facility] Comment on above: Order Comment: 103.1 Performed By: #### L 100.0100, L500.2500, L501.6710 ####[facility] [address] [place], [address] Eosinophils/100 WBC (Bld) 1.0 % Normal 0-5 [facility] Comment on above: Order Comment: 103.1 Performed By: #### L 100.0100, L500.2500, L501.6710 ####[facility] [address] [place], [address] Erythrocyte distribution width (RBC) [Ratio] 15.7 % High 11.6-14.6 [facility] Comment on above: Order Comment: 103.1 Performed By: #### L 100.0100, L500.2500, L501.6710 ####[facility] [address] [place], [address] Hematocrit (Bld) [Volume fraction] 38.9 % Normal 37-47 [facility] Comment on above: Order Comment: 103.1 Performed By: #### L 100.0100, L500.2500, L501.6710 ####[facility] [address] [place], [address] Hemoglobin (Bld) [Mass/Vol] 11.8 g/dL Low 12.0-15.0 [facility] Comment on above: Order Comment: 103.1 Performed By: #### L 100.0100, L500.2500, L501.6710 ####[facility] [address] [place], [address] IG% 0.800 Normal 0.0-0.9 [facility] Comment on above: Order Comment: 103.1 Result Comment: IG% - Immature Granulocytes (promyelocytes, myelocytes andmetamyelocytes) > 1% indicates that a LEFT SHIFT is Present. Performed By: #### L 100.0100, L500.2500, L501.6710 ####[facility] [address] [place], [address] Lymphocytes/100 WBC (Bld) 12.4 % Low 19-41 [facility] Comment on above: Order Comment: 103.1 Performed By: #### L 100.0100, L500.2500, L501.6710 ####[facility] [address] [place], [address] MCH (RBC) [Entitic mass] 28.4 pg Normal 27.0-32.0 [facility] Comment on above: Order Comment: 103.1 Performed By: #### L 100.0100, L500.2500, L501.6710 ####[facility] [address] [place], [address] MCHC (RBC) [Mass/Vol] 30.3 g/dL Low 32-36 [facility] Comment on above: Order Comment: 103.1 Performed By: #### L 100.0100, L500.2500, L501.6710 ####[facility] [address] [place], [address] MCV (RBC) [Entitic vol] 93.5 fL Normal 81-99 [facility] Comment on above: Order Comment: 103.1 Performed By: #### L 100.0100, L500.2500, L501.6710 ####[facility] [address] [place], [address] Monocytes/100 WBC (Bld) 9.9 % Normal 0-10 [facility] Comment on above: Order Comment: 103.1 Performed By: #### L 100.0100, L500.2500, L501.6710 ####[facility] [address] [place], [address] Neutrophils/100 WBC (Bld) 74.9 % High 47-70 [facility] Comment on above: Order Comment: 103.1 Performed By: #### L 100.0100, L500.2500, L501.6710 ####[facility] [address] [place], [address] Nucleated RBC (Bld) [#/Vol] 0 10*3/uL Normal 0-5 [facility] Comment on above: Order Comment: 103.1 Performed By: #### L 100.0100, L500.2500, L501.6710 ####[facility] [address] [place], [address] Platelet mean volume (Bld) [Entitic vol] 9.9 fL Normal 6.2-12.0 [facility] Comment on above: Order Comment: 103.1 Performed By: #### L 100.0100, L500.2500, L501.6710 ####[facility] [address] [place], [address] Platelets (Bld) [#/Vol] 196 10*3/uL Normal 150-450 [facility] Comment on above: Order Comment: 103.1 Performed By: #### L 100.0100, L500.2500, L501.6710 ####[facility] [address] [place], [address] RBC (Bld) [#/Vol] 4.16 10*6/uL Low 4.2-5.4 [facility] Comment on above: Order Comment: 103.1 Performed By: #### L 100.0100, L500.2500, L501.6710 ####[facility] [address] [place], [address] RDW SD 54.4 fl High 35.1-43.9 [facility] Comment on above: Order Comment: 103.1 Performed By: #### L 100.0100, L500.2500, L501.6710 ####[facility] [address] [place], [address] WBC (Bld) [#/Vol] 6.1 10*3/uL Normal 4.4-11.0 [facility] Comment on above: Order Comment: 103.1 Performed By: #### L 100.0100, L500.2500, L501.6710 ####[facility] [address] [place], [address] CRPon 06-03-2024 C-REACTIVE PROT 15.60 mg/L High 0.0-3.0 [facility] Comment on above: Order Comment: 103.1 Result Comment: C-Re active Protein (CRP) provides useful information for thediagnosis, therapy and monitoring of inflammatory processesand associated diseases. For the evaluation of Relative Riskfor Cardiovascular Disease, a High Sensitivity CRP (HSCRP)should be ordered. Performed By: #### L 100.0100, L500.2500, L501.6710 ####[facility] [address] [place], [address] Calcium [Mass/Vol]Ordered By : Millie Massey on 06-03-2024 Serum or plasma calcium measurement (mass/volume) 8.7 mg/dL 8.5-10.1 [facility] Carbon dioxide measurementOr dered By: Millie Massey on 06-03-2024 Carbon dioxide measurement 24.0 mmol/L 21.0-32.0 [facility] Chloride measurementOrdered By: Millie Massey on 06-03-2024 Chloride measurement 102 mmol/L 98-107 [facility] Creatinine [Mass/Vol]Ordered By: Millie Massey on 06-03-2024 Serum or plasma creatinine measurement (mass/volume) 2.40 mg/dL High 0.55-1.02 [facility] Eosinophil percentageOrdered By: Millie Massey on 06-03-2024 Eosinophil percentage 1.0 % 0-1 [facility] Erythrocyte distribution wid th (RBC) [Ratio]Ordered By: Millie Massey on 06-03-2024 Erythrocyte distribution width ratio 15.7 % High 11.6-14.6 [facility] Erythrocyte distribution wid th standard deviationOrdered By: Millie Massey on 06-03-2024 Erythrocyte distribution width standard deviation 54.4 fl High 35.1-43.9 [facility] Estimated glomerular filtrat ion rate (GFR) AmericanOrdered By: Millie Massey on 06-03-2024 Estimated glomerular filtration rate (GFR) 26 mL/min Low >60 [facility] Glomerular filtration rate ( GFR) estimationOrdered By: Millie Massey on 06-03-2024 Glomerular filtration rate (GFR) estimation 22 mL/min Low >60 [facility] Glucose measurementOrdered B y: Millie Massey on 06-03-2024 Glucose measurement 87 mg/dL 74-106 [facility] Hematocrit Auto (Bld) [Volum e fraction]Ordered By: Millie Massey on 06-03-2024 Automated blood hematocrit (percentage) 38.9 % 37-47 [facility] Hemoglobin measurementOrdere d By: Millie Massey on 06-03-2024 Hemoglobin measurement 11.8 g/dL Low 12.0-15.0 [facility] Immature granulocytes/100 WB C Auto (Bld)Ordered By: Millie Massey on 06-03-2024 Automated immature granulocyte percentage 0.800 % 0.0-0.9 [facility] Lymphocytes Auto (Unsp spec) [#/Vol]Ordered By: Millie Massey on 06-03-2024 Absolute lymphocyte count 0.75 X10^3/uL Low 0.83-4.51 [facility] Lymphocytes/100 WBC Auto (Un sp spec)Ordered By: Millie Massey on 06-03-2024 Automated lymphocyte count as percentage of total leukocytes 12.4 % Low 19-41 [facility] MCV (RBC) [Entitic vol]Order ed By: Millie Massey on 06-03-2024 MCV (mean corpuscular volume) determination 93.5 fL 81-99 [facility] Mean corpuscular hemoglobin (MCH) determinationOrdered By: Millie Massey on 06-03-2024 Mean corpuscular hemoglobin (MCH) determination 28.4 pg 27.0-32.0 [facility] Mean corpuscular hemoglobin concentration (MCHC) determinationOrdered By: Millie Massey on 06-03-2024 Mean corpuscular hemoglobin concentration (MCHC) determination 30.3 g/dL Low 32-36 [facility] Mean platelet volume determi nationOrdered By: Millie Massey on 06-03-2024 Mean platelet volume determination 9.9 fl 6.2-12.0 [facility] Monocyte percentageOrdered B y: Millie Massey on 06-03-2024 Monocyte percentage 9.9 % 0-10 [facility] Neutrophil percentageOrdered By: Millie Massey on 06-03-2024 Neutrophil percentage 74.9 % High 47-70 [facility] Nucleated red blood cell per centageOrdered By: Millie Massey on 06-03-2024 Nucleated red blood cell percentage 0 % 0-5 [facility] Platelet countOrdered By: Carter Massey on 06-03-2024 Platelet count 196 K/mm3 150-450 [facility] Potassium measurementOrdered By: Millie Massey on 06-03-2024 Potassium measurement 5.3 mmol/L High 3.5-5.1 [facility] RBC Auto (Bld) [#/Vol]Ordere d By: Millie Massey on 06-03-2024 Automated blood erythrocyte count 4.16 M/mm3 Low 4.2-5.4 [facility] Serum anion gap measurementO rdered By: Millie Massey on 06-03-2024 Serum anion gap measurement 6 5-15 [facility] Sodium levelOrdered By: Silvana Massey on 06-03-2024 Sodium level 132 mmol/L Low 136-145 [facility] Urea nitrogen [Mass/Vol]Orde red By: Millie Massey on 06-03-2024 Serum or plasma urea nitrogen measurement (mass/volume) 35 mg/dL High 7-18 [facility] White blood cell (WBC) count Ordered By: Millie Massey on 06-03-2024 White blood cell (WBC) count 6.1 K/mm3 4.4-11.0 [facility] Miscellaneous Lab Procedureo n 05-30-2024 [facility] LAB TEST Normal [facility] Comment on above: Order Comment: [id number] Result Comment: TEST RESULTS LIMITSHemoglobin A1c <4.2 Low % 4.8-5.6 Verified by repeat analysis Please Note: Prediabetes: 5.7 - 6.4 Diabetes: >6.4 Glycemic control for adults with diabetes: <7.0 TESTING PERFORMED AT [facility]. ORIGINAL REPORT ON FILE IN LAB CONTAINS ADDITIONAL TEST SITE INFORMATION. Performed By: #### L 801.1541 ####[facility] [address] [place], [address] Prealbumin 42005os 4 Prealbumin [Mass/Vol] 10 mg/dL Normal 10-36 [facility] Comment on above: Order Comment: 103.1 Result Comment: Perf ormed at: [facility] Lab[address] [id number] Director: Manjinder Babb PhD, Phone: [phone] Performed By: #### L 5019520, T157.85527, L501.3510, L3300.6400, L500.4050, L100.0100, L501.9310 ####[facility] [address] [place], [place], [id number] ALP [Catalytic activity/Vol] Ordered By: Millie Massey on 05-27-2024 Serum or plasma alkaline phosphatase measurement 65 U/L 45-117 [facility] ALT [Catalytic activity/Vol] Ordered By: Millieblanche Massey on 05-27-2024 Serum or plasma alanine aminotransferase (ALT) measurement 10 U/L Low 13-56 [facility] Absolute neutrophil countOrd ered By: Millie Massey on 05-27-2024 Absolute neutrophil count 3.6 X10^3/uL 2.0-7.7 [facility] Albumin [Mass/Vol]Ordered By : Millie Massey on 05-27-2024 Serum or plasma albumin measurement (mass/volume) 1.8 g/dL Low 3.2-5.0 [facility] Albumin to globulin ratioOrd ered By: Millie Massey on 05-27-2024 Albumin to globulin ratio 0.4 RATIO Low 0.9-2.4 [facility] Basophil percentageOrdered B y: Millie Massey on 05-27-2024 Basophil percentage 0.8 % 0-1 [facility] Bilirubin, totalOrdered By: Millie Massey on 05-27-2024 Bilirubin, total 0.40 mg/dL 0.20-1.00 [facility] Blood urea nitrogen (BUN)/cr eatinine ratioOrdered By: Millie Massey on 05-27-2024 Blood urea nitrogen (BUN)/creatinine ratio 15.6 RATIO 10-20 [facility] CBC W/Diff, Automatedon 04-30 Absolute Lymph 0.62 X10 3/uL Low 0.83-4.51 [facility] Comment on above: Order Comment: 103.1 Performed By: #### L 501.9520, L501.22877, L501.5200, L3300.6400, L500.4050, L100.0100, L501.9310 ####[facility] [address] [place], [address] Absolute Neut 3.6 X10 3/uL Normal 2.0-7.7 [facility] Comment on above: Order Comment: 103.1 Performed By: #### L 501.9520, L501.84389, L501.5200, L3300.6400, L500.4050, L100.0100, L501.9310 ####[facility] [address] [place], [address] Basophils/100 WBC (Bld) 0.8 % Normal 0-1 [facility] Comment on above: Order Comment: 103.1 Performed By: #### L 501.9520, L501.70340, L501.5200, L3300.6400, L500.4050, L100.0100, L501.9310 ####[facility] [address] [place], [address] Eosinophils/100 WBC (Bld) 2.3 % Normal 0-5 [facility] Comment on above: Order Comment: 103.1 Performed By: #### L 501.9520, L501.92520, L501.5200, L3300.6400, L500.4050, L100.0100, L501.9310 ####[facility] [address] [place], [address] Erythrocyte distribution width (RBC) [Ratio] 17.2 % High 11.6-14.6 [facility] Comment on above: Order Comment: 103.1 Performed By: #### L 501.9520, L501.71949, L501.5200, L3300.6400, L500.4050, L100.0100, L501.9310 ####[facility] [address] [place], [address] Hematocrit (Bld) [Volume fraction] 36.0 % Low 37-47 [facility] Comment on above: Order Comment: 103.1 Performed By: #### L 501.9520, L501.18079, L501.5200, L3300.6400, L500.4050, L100.0100, L501.9310 ####[facility] [address] [place], [address] Hemoglobin (Bld) [Mass/Vol] 10.4 g/dL Low 12.0-15.0 [facility] Comment on above: Order Comment: 103.1 Performed By: #### L 501.9520, L501.12144, L501.5200, L3300.6400, L500.4050, L100.0100, L501.9310 ####[facility] [address] [place], [address]( IG% 1.000 High 0.0-0.9 [facility] Comment on above: Order Comment: 103.1 Result Comment: IG% - Immature Granulocytes (promyelocytes, myelocytes andmetamyelocytes) > 1% indicates that a LEFT SHIFT is Present. Performed By: #### L 501.9520, L501.11247, L501.5200, L3300.6400, L500.4050, L100.0100, L501.9310 ####[facility] [address] [place], [address] Lymphocytes/100 WBC (Bld) 12.8 % Low 19-41 [facility] Comment on above: Order Comment: 103.1 Performed By: #### L 501.9520, L501.78893, L501.5200, L3300.6400, L500.4050, L100.0100, L501.9310 ####[facility] [address] [place], [address] MCH (RBC) [Entitic mass] 28.2 pg Normal 27.0-32.0 [facility] Comment on above: Order Comment: 103.1 Performed By: #### L 501.9520, L501.93747, L501.5200, L3300.6400, L500.4050, L100.0100, L501.9310 ####[facility] [address] [place], [address] MCHC (RBC) [Mass/Vol] 28.9 g/dL Low 32-36 [facility] Comment on above: Order Comment: 103.1 Performed By: #### L 501.9520, L501.03384, L501.5200, L3300.6400, L500.4050, L100.0100, L501.9310 ####[facility] [address] [place], [address] MCV (RBC) [Entitic vol] 97.6 fL Normal 81-99 [facility] Comment on above: Order Comment: 103.1 Performed By: #### L 501.9520, L501.16871, L501.5200, L3300.6400, L500.4050, L100.0100, L501.9310 ####[facility] [address] [place], [address] Monocytes/100 WBC (Bld) 9.3 % Normal 0-10 [facility] Comment on above: Order Comment: 103.1 Performed By: #### L 501.9520, L501.63070, L501.5200, L3300.6400, L500.4050, L100.0100, L501.9310 ####[facility] [address] [place], [address] Neutrophils/100 WBC (Bld) 73.8 % High 47-70 [facility] Comment on above: Order Comment: 103.1 Performed By: #### L 501.9520, L501.38297, L501.5200, L3300.6400, L500.4050, L100.0100, L501.9310 ####[facility] [address] [place], [address] Nucleated RBC (Bld) [#/Vol] 0 10*3/uL Normal 0-5 [facility] Comment on above: Order Comment: 103.1 Performed By: #### L 501.9520, L501.36282, L501.5200, L3300.6400, L500.4050, L100.0100, L501.9310 ####[facility] [address] [place], [address] Platelet mean volume (Bld) [Entitic vol] 9.4 fL Normal 6.2-12.0 [facility] Comment on above: Order Comment: 103.1 Performed By: #### L 501.9520, L501.92772, L501.5200, L3300.6400, L500.4050, L100.0100, L501.9310 ####[facility] [address] [place], [address] Platelets (Bld) [#/Vol] 140 10*3/uL Low 150-450 [facility] Comment on above: Order Comment: 103.1 Performed By: #### L 501.9520, L501.83558, L501.5200, L3300.6400, L500.4050, L100.0100, L501.9310 ####[facility] [address] [place], [address] RBC (Bld) [#/Vol] 3.69 10*6/uL Low 4.2-5.4 [facility] Comment on above: Order Comment: 103.1 Performed By: #### L 501.9520, L501.05217, L501.5200, L3300.6400, L500.4050, L100.0100, L501.9310 ####[facility] [address] [place], [address] RDW SD 62.0 fl High 35.1-43.9 [facility] Comment on above: Order Comment: 103.1 Performed By: #### L 501.9520, L501.26146, L501.5200, L3300.6400, L500.4050, L100.0100, L501.9310 ####[facility] [address] [place], [address] WBC (Bld) [#/Vol] 4.8 10*3/uL Normal 4.4-11.0 [facility] Comment on above: Order Comment: 103.1 Performed By: #### L 501.9520, L501.63405, L501.5200, L3300.6400, L500.4050, L100.0100, L501.9310 ####[facility] [address] [place], [address] Calcium [Mass/Vol]Ordered By : Millie Massey on 05-27-2024 Serum or plasma calcium measurement (mass/volume) 7.8 mg/dL Low 8.5-10.1 [facility] Carbon dioxide measurementOr dered By: Millie Massey on 05-27-2024 Carbon dioxide measurement 30.0 mmol/L 21.0-32.0 [facility] Chloride measurementOrdered By: Millie Massey on 05-27-2024 Chloride measurement 103 mmol/L 98-107 [facility] Comprehensive Metabolic Prof ilon 05-27-2024 Albumin [Mass/Vol] 1.8 g/dL Low 3.2-5.0 [facility] Comment on above: Order Comment: 103.1 Performed By: #### L 501.9520, L501.47909, L501.5200, L3300.6400, L500.4050, L100.0100, L501.9310 ####[facility] [address] [place], [address] Albumin/Globulin [Mass ratio] 0.4 {ratio} Low 0.9-2.4 [facility] Comment on above: Order Comment: 103.1 Performed By: #### L 501.9520, L501.45649, L501.5200, L3300.6400, L500.4050, L100.0100, L501.9310 ####[facility] [address] [place], [address] ALK P 65 U/L Normal 45-117 [facility] Comment on above: Order Comment: 103.1 Performed By: #### L 501.9520, L501.82739, L501.5200, L3300.6400, L500.4050, L100.0100, L501.9310 ####[facility] [address] [place], [address] ALT [Catalytic activity/Vol] 10 U/L Low 13-56 [facility] Comment on above: Order Comment: 103.1 Performed By: #### L 501.9520, L501.82989, L501.5200, L3300.6400, L500.4050, L100.0100, L501.9310 ####[facility] [address] [place], [address] AST [Catalytic activity/Vol] 14 U/L Low 15-37 [facility] Comment on above: Order Comment: 103.1 Performed By: #### L 501.9520, L501.65035, L501.5200, L3300.6400, L500.4050, L100.0100, L501.9310 ####[facility] [address] [place], [address] Bilirubin [Mass/Vol] 0.40 mg/dL Normal 0.20-1.00 [facility] Comment on above: Order Comment: 103.1 Result Comment: For patients on eltrombopag therapy, use of Dimension [place] TBIL is not recommended. Performed By: #### L 501.9520, L501.64272, L501.5200, L3300.6400, L500.4050, L100.0100, L501.9310 ####[facility] [address] [place], [address] BUN/CRE 15.6 RATIO Normal 10-20 [facility] Comment on above: Order Comment: 103.1 Performed By: #### L 501.9520, L501.51901, L501.5200, L3300.6400, L500.4050, L100.0100, L501.9310 ####[facility] [address] [place], [address] CA,Total 7.8 mg/dL Low 8.5-10.1 [facility] Comment on above: Order Comment: 103.1 Performed By: #### L 501.9520, L501.04334, L501.5200, L3300.6400, L500.4050, L100.0100, L501.9310 ####[facility] [address] [place], [address] Chloride [Moles/Vol] 103 mmol/L Normal 98-107 [facility] Comment on above: Order Comment: 103.1 Performed By: #### L 501.9520, L501.47492, L501.5200, L3300.6400, L500.4050, L100.0100, L501.9310 ####[facility] [address] [place], [address] CO2 [Moles/Vol] 30.0 mmol/L Normal 21.0-32.0 [facility] Comment on above: Order Comment: 103.1 Performed By: #### L 501.9520, L501.87909, L501.5200, L3300.6400, L500.4050, L100.0100, L501.9310 ####[facility] [address] [place], [place], [id number] Creatinine [Mass/Vol] 1.41 mg/dL High 0.55-1.02 [facility] Comment on above: Order Comment: 103.1 Result Comment: The validity of the calculated GFR GFRAA in patients over70 years has not been determined. Clinical correlation isessential. Performed By: #### L 501.9520, L501.36699, L501.5200, L3300.6400, L500.4050, L100.0100, L501.9310 ####[facility] [address] [place], [place], [address] EST GFR - AA 49 mL/min Low >60 [facility] Comment on above: Order Comment: 103.1 Result Comment: Afri can [place] GFR Calc Performed By: #### L 501.9520, L501.87135, L501.5200, L3300.6400, L500.4050, L100.0100, L501.9310 ####[facility] [address] [place], [place], [id number] GAP 4 Low 5-15 [facility] Comment on above: Order Comment: 103.1 Performed By: #### L 501.9520, L501.22078, L501.5200, L3300.6400, L500.4050, L100.0100, L501.9310 ####[facility] [address] [place], [place], [address] GFR/1.73 sq M.predicted among non-blacks MDRD (S/P/Bld) [Vol rate/Area] 40 mL/min/{1.73_m2} Low >60 [facility] Comment on above: Order Comment: 103.1 Result Comment: Non- GFR Calc Performed By: #### L 501.9520, L501.36663, L501.5200, L3300.6400, L500.4050, L100.0100, L501.9310 ####[facility] [address] [place], [address] Globulin (S) [Mass/Vol] 4.2 g/dL Normal 2.2-4.2 [facility] Comment on above: Order Comment: 103.1 Performed By: #### L 501.9520, L501.11268, L501.5200, L3300.6400, L500.4050, L100.0100, L501.9310 ####[facility] [address] [place], [address] Glucose [Mass/Vol] 74 mg/dL Normal 74-106 [facility] Comment on above: Order Comment: 103.1 Performed By: #### L 501.9520, L501.59496, L501.5200, L3300.6400, L500.4050, L100.0100, L501.9310 ####[facility] [address] [place], [address] Potassium [Moles/Vol] 4.0 mmol/L Normal 3.5-5.1 [facility] Comment on above: Order Comment: 103.1 Performed By: #### L 501.9520, L501.10920, L501.5200, L3300.6400, L500.4050, L100.0100, L501.9310 ####[facility] [address] [place], [address] Sodium [Moles/Vol] 138 mmol/L Normal 136-145 [facility] Comment on above: Order Comment: 103.1 Performed By: #### L 501.9520, L501.87637, L501.5200, L3300.6400, L500.4050, L100.0100, L501.9310 ####[facility] [address] [place], [address] T PROT 6.0 g/dL Low 6.4-8.2 [facility] Comment on above: Order Comment: 103.1 Performed By: #### L 501.9520, L501.89391, L501.5200, L3300.6400, L500.4050, L100.0100, L501.9310 ####[facility] [address] [place], [place], [address] Urea nitrogen [Mass/Vol] 22 mg/dL High 7-18 [facility] Comment on above: Order Comment: 103.1 Performed By: #### L 501.9520, L501.25021, L501.5200, L3300.6400, L500.4050, L100.0100, L501.9310 ####[facility] [address] [place], [place], [address] Creatinine [Mass/Vol]Ordered By: Millie Massey on 05-27-2024 Serum or plasma creatinine measurement (mass/volume) 1.41 mg/dL High 0.55-1.02 [facility] Eosinophil percentageOrdered By: Millie Massey on 05-27-2024 Eosinophil percentage 2.3 % 0-5 [facility] Erythrocyte distribution wid th (RBC) [Ratio]Ordered By: Millie Massey on 05-27-2024 Erythrocyte distribution width ratio 17.2 % High 11.6-14.6 [facility] Erythrocyte distribution wid th standard deviationOrdered By: Millie Massey on 05-27-2024 Erythrocyte distribution width standard deviation 62.0 fl High 35.1-43.9 [facility] Estimated glomerular filtrat ion rate (GFR) AmericanOrdered By: Millie Massey on 05-27-2024 Estimated glomerular filtration rate (GFR) 49 mL/min Low >60 [facility] Free T3on 05-27-2024 Free T3 [Mass/Vol] 0.9 pg/mL Low 2.18-3.98 [facility] Comment on above: Order Comment: 103.1 Performed By: #### L 501.9520, L501.41357, L501.5200, L3300.6400, L500.4050, L100.0100, L501.9310 ####[facility] [address] [place], [address] Free L1Qnkknlg By: Millie ramirez on 05-27-2024 Free T3 0.9 pg/mL Low 2.18-3.98 [facility] Glomerular filtration rate ( GFR) estimationOrdered By: Millie Massey on 05-27-2024 Glomerular filtration rate (GFR) estimation 40 mL/min Low >60 [facility] Glucose measurementOrdered B y: Millie Massey on 05-27-2024 Glucose measurement 74 mg/dL 74-106 [facility] Hematocrit Auto (Bld) [Volum e fraction]Ordered By: Millie Massey on 05-27-2024 Automated blood hematocrit (percentage) 36.0 % Low 37-47 [facility] Hemoglobin measurementOrdere d By: Millie Massey on 05-27-2024 Hemoglobin measurement 10.4 g/dL Low 12.0-15.0 [facility] Immature granulocytes/100 WB C Auto (Bld)Ordered By: Millie Massey on 05-27-2024 Automated immature granulocyte percentage 1.000 % High 0.0-0.9 [facility] Lymphocytes Auto (Unsp spec) [#/Vol]Ordered By: Millie Massey on 05-27-2024 Absolute lymphocyte count 0.62 X10^3/uL Low 0.83-4.51 [facility] Lymphocytes/100 WBC Auto (Un sp spec)Ordered By: Millie Massey on 05-27-2024 Automated lymphocyte count as percentage of total leukocytes 12.8 % Low 19-41 [facility] MCV (RBC) [Entitic vol]Order ed By: Millie Massey on 05-27-2024 MCV (mean corpuscular volume) determination 97.6 fL 81-99 [facility] Magnesiumon 05-27-2024 Magnesium [Mass/Vol] 2.0 mg/dL Normal 1.6-2.6 [facility] Comment on above: Order Comment: 103.1 Performed By: #### L 501.9520, L501.92418, L501.5200, L3300.6400, L500.4050, L100.0100, L501.9310 ####[facility] [address] [place], [address] Magnesium measurementOrdered By: Millie Massey on 05-27-2024 Magnesium measurement 2.0 mg/dL 1.6-2.6 [facility] Mean corpuscular hemoglobin (MCH) determinationOrdered By: Millie Massey on 05-27-2024 Mean corpuscular hemoglobin (MCH) determination 28.2 pg 27.0-32.0 [facility] Mean corpuscular hemoglobin concentration (MCHC) determinationOrdered By: Millie Massey on 05-27-2024 Mean corpuscular hemoglobin concentration (MCHC) determination 28.9 g/dL Low 32-36 [facility] Mean platelet volume determi nationOrdered By: Millie Massey on 05-27-2024 Mean platelet volume determination 9.4 fl 6.2-12.0 [facility] Miscellaneous procedureOrder ed By: Millie Massey on 05-27-2024 Miscellaneous procedure See comment [facility] Monocyte percentageOrdered B y: Millie Massey on 05-27-2024 Monocyte percentage 9.3 % 0-10 [facility] Neutrophil percentageOrdered By: Millie Massey on 05-27-2024 Neutrophil percentage 73.8 % High 47-70 [facility] No Panel InformationOrdered By: Millie Massey on 05-27-2024 14 U/L Low 15-37 [facility] Nucleated red blood cell per centageOrdered By: Millie Massey on 05-27-2024 Nucleated red blood cell percentage 0 % 0-5 [facility] Platelet countOrdered By: Carter Massey on 05-27-2024 Platelet count 140 K/mm3 Low 150-450 [facility] Potassium measurementOrdered By: Millie Massey on 05-27-2024 Potassium measurement 4.0 mmol/L 3.5-5.1 [facility] RBC Auto (Bld) [#/Vol]Ordere d By: Millie Massey on 05-27-2024 Automated blood erythrocyte count 3.69 M/mm3 Low 4.2-5.4 [facility] Serum anion gap measurementO rdered By: Millie Massey on 05-27-2024 Serum anion gap measurement 4 Low 5-15 [facility] Serum globulin measurementOr dered By: Millie Massey on 05-27-2024 Serum globulin measurement 4.2 g/dL 2.2-4.2 [facility] Serum prealbumin measurement by immunoassayOrdered By: Millie Massey on 05-27-2024 Serum prealbumin measurement by immunoassay 10 mg/dL 10-36 [facility] Sodium levelOrdered By: Silvana Massey on 05-27-2024 Sodium level 138 mmol/L 136-145 [facility] T4 Total, Thyroxinon 024 T4 [Mass/Vol] 11.8 ug/dL Normal 4.8-13.9 [facility] Comment on above: Order Comment: 103.1 Performed By: #### L 501.9520, L501.46470, L501.5200, L3300.6400, L500.4050, L100.0100, L501.9310 ####[facility] [address] [place], [address] T4 [Mass/Vol]Ordered By: Lesli Massey on 05-27-2024 Serum or plasma thyroxine (T4) measurement (mass/volume) 11.8 ug/dL 4.8-13.9 [facility] TSH QnOrdered By: Millie little on 05-27-2024 Serum or plasma thyroid stimulating hormone (TSH) measurement (units/volume) 3.060 uIU/mL 0.358-3.74 0 [facility] Thyroid Stim Hormone (TSH)on 05-27-2024 TSH 3.060 uIU/mL Normal 0.358-3.74 0 [facility] Comment on above: Order Comment: 103.1 Performed By: #### L 501.9520, L501.09359, L501.5200, L3300.6400, L500.4050, L100.0100, L501.9310 ####[facility] [address] [place], [place], [id number] Total proteinOrdered By: Lesli Massey on 05-27-2024 Total protein 6.0 g/dL Low 6.4-8.2 [facility] Urea nitrogen [Mass/Vol]Orde red By: Millie Massey on 05-27-2024 Serum or plasma urea nitrogen measurement (mass/volume) 22 mg/dL High 7-18 [facility] White blood cell (WBC) count Ordered By: Millie Massey on 05-27-2024 White blood cell (WBC) count 4.8 K/mm3 4.4-11.0 [facility] Miscellaneous Lab Procedureo n 05-10-2024 [facility] LAB TEST Normal [facility] Comment on above: Order Comment: [id number] CYSTATIN C SERUM RT Result Comment: TEST RESULTS LIMITSCystatin C 3.68 High mg/L 0.72-1.16 ___ TESTING PERFORMED AT [facility]. ORIGINAL REPORT ON FILE IN LAB CONTAINS ADDITIONAL TEST SITE INFORMATION. Performed By: #### L 801.1541 ####[facility] [address] [place], [place], [address] Surgery Visit Reporton 04-30 Surgery Visit Report Normal [facility] Basic Metabolic Profile (BMP )on 04-24-2024 BUN/CRE 11.9 RATIO Normal 10-20 [facility] Comment on above: Order Comment: 103 Performed By: #### L 500.2500, L501.9310, L501.9186, L501.9520, L100.0500 ####[facility] [address] [place], [address] CA,Total 7.7 mg/dL Low 8.5-10.1 [facility] Comment on above: Order Comment: 103 Performed By: #### L 500.2500, L501.9310, L501.9186, L501.9520, L100.0500 ####[facility] [address] [place], [address] Chloride [Moles/Vol] 109 mmol/L High 98-107 [facility] Comment on above: Order Comment: 103 Performed By: #### L 500.2500, L501.9310, L501.9186, L501.9520, L100.0500 ####[facility] [address] [place], [address] CO2 [Moles/Vol] 29.0 mmol/L Normal 21.0-32.0 [facility] Comment on above: Order Comment: 103 Performed By: #### L 500.2500, L501.9310, L501.9186, L501.9520, L100.0500 ####[facility] [address] [place], [address] Creatinine [Mass/Vol] 1.77 mg/dL High 0.55-1.02 [facility] Comment on above: Order Comment: 103 Result Comment: The validity of the calculated GFR GFRAA in patients over70 years has not been determined. Clinical correlation isessential. Performed By: #### L 500.2500, L501.9310, L501.9186, L501.9520, L100.0500 ####[facility] [address] [place], [address] EST GFR - AA 37 mL/min Low >60 [facility] Comment on above: Order Comment: 103 Result Comment: Afri can [place] GFR Calc Performed By: #### L 500.2500, L501.9310, L501.9186, L501.9520, L100.0500 ####[facility] [address] [place], [address] GAP 2 Low 5-15 [facility] Comment on above: Order Comment: 103 Performed By: #### L 500.2500, L501.9310, L501.9186, L501.9520, L100.0500 ####[facility] [address] [place], [address] GFR/1.73 sq M.predicted among non-blacks MDRD (S/P/Bld) [Vol rate/Area] 31 mL/min/{1.73_m2} Low >60 [facility] Comment on above: Order Comment: 103 Result Comment: Non- GFR Calc Performed By: #### L 500.2500, L501.9310, L501.9186, L501.9520, L100.0500 ####[facility] [address] [place], [address] Glucose [Mass/Vol] 65 mg/dL Low 74-106 [facility] Comment on above: Order Comment: 103 Performed By: #### L 500.2500, L501.9310, L501.9186, L501.9520, L100.0500 ####[facility] [address] [place], [address] Potassium [Moles/Vol] 4.9 mmol/L Normal 3.5-5.1 [facility] Comment on above: Order Comment: 103 Performed By: #### L 500.2500, L501.9310, L501.9186, L501.9520, L100.0500 ####[facility] [address] [place], [address] Sodium [Moles/Vol] 140 mmol/L Normal 136-145 [facility] Comment on above: Order Comment: 103 Performed By: #### L 500.2500, L501.9310, L501.9186, L501.9520, L100.0500 ####[facility] [address] [place], [address] Urea nitrogen [Mass/Vol] 21 mg/dL High 7-18 [facility] Comment on above: Order Comment: 103 Performed By: #### L 500.2500, L501.9310, L501.9186, L501.9520, L100.0500 ####[facility] [address] [place], [address] Blood urea nitrogen (BUN)/cr eatinine ratioOrdered By: Ethan Rodriguez on 04-24-2024 Blood urea nitrogen (BUN)/creatinine ratio 11.9 RATIO 10-20 [facility] CBC-Complete Blood Cnt No Di ffon 04-24-2024 Erythrocyte distribution width (RBC) [Ratio] 18.4 % High 11.6-14.6 [facility] Comment on above: Order Comment: 103 Performed By: #### L 500.2500, L501.9310, L501.9186, L501.9520, L100.0500 ####[facility] [address] [place], [address] Hematocrit (Bld) [Volume fraction] 35.3 % Low 37-47 [facility] Comment on above: Order Comment: 103 Performed By: #### L 500.2500, L501.9310, L501.9186, L501.9520, L100.0500 ####[facility] [address] [place], [address] Hemoglobin (Bld) [Mass/Vol] 10.4 g/dL Low 12.0-15.0 [facility] Comment on above: Order Comment: 103 Performed By: #### L 500.2500, L501.9310, L501.9186, L501.9520, L100.0500 ####[facility] [address] [place], [address] MCH (RBC) [Entitic mass] 27.3 pg Normal 27.0-32.0 [facility] Comment on above: Order Comment: 103 Performed By: #### L 500.2500, L501.9310, L501.9186, L501.9520, L100.0500 ####[facility] [address] [place], [address] MCHC (RBC) [Mass/Vol] 29.5 g/dL Low 32-36 [facility] Comment on above: Order Comment: 103 Performed By: #### L 500.2500, L501.9310, L501.9186, L501.9520, L100.0500 ####[facility] [address] [place], [address] MCV (RBC) [Entitic vol] 92.7 fL Normal 81-99 [facility] Comment on above: Order Comment: 103 Performed By: #### L 500.2500, L501.9310, L501.9186, L501.9520, L100.0500 ####[facility] [address] [place], [address] Platelet mean volume (Bld) [Entitic vol] 11.0 fL Normal 6.2-12.0 [facility] Comment on above: Order Comment: 103 Performed By: #### L 500.2500, L501.9310, L501.9186, L501.9520, L100.0500 ####[facility] [address] [place], [address] Platelets (Bld) [#/Vol] 105 10*3/uL Low 150-450 [facility] Comment on above: Order Comment: 103 Performed By: #### L 500.2500, L501.9310, L501.9186, L501.9520, L100.0500 ####[facility] [address] [place], [address] RBC (Bld) [#/Vol] 3.81 10*6/uL Low 4.2-5.4 [facility] Comment on above: Order Comment: 103 Performed By: #### L 500.2500, L501.9310, L501.9186, L501.9520, L100.0500 ####[facility] [address] [place], [address] RDW SD 61.0 fl High 35.1-43.9 [facility] Comment on above: Order Comment: 103 Performed By: #### L 500.2500, L501.9310, L501.9186, L501.9520, L100.0500 ####[facility] [address] [place], [address] WBC (Bld) [#/Vol] 4.5 10*3/uL Normal 4.4-11.0 [facility] Comment on above: Order Comment: 103 Performed By: #### L 500.2500, L501.9310, L501.9186, L501.9520, L100.0500 ####[facility] [address] [place], [address] Calcium [Mass/Vol]Ordered By : Ethan Rodriguez on 04-24-2024 Serum or plasma calcium measurement (mass/volume) 7.7 mg/dL Low 8.5-10.1 [facility] Carbon dioxide measurementOr dered By: Ethan Rodriguez on 04-24-2024 Carbon dioxide measurement 29.0 mmol/L 21.0-32.0 [facility] Chloride measurementOrdered By: Ethan Rodriguez on 04-24-2024 Chloride measurement 109 mmol/L High 98-107 [facility] Creatinine [Mass/Vol]Ordered By: Ethan Rodriguez on 04-24-2024 Serum or plasma creatinine measurement (mass/volume) 1.77 mg/dL High 0.55-1.02 [facility] Erythrocyte distribution wid th (RBC) [Entitic vol]Ordered By: Ethan Rodriguez on 04-24-2024 Erythrocyte distribution width standard deviation 61.0 fl High 35.1-43.9 [facility] Erythrocyte distribution wid th (RBC) [Ratio]Ordered By: Ethan Rodriguez on 04-24-2024 Erythrocyte distribution width ratio 18.4 % High 11.6-14.6 [facility] Estimated glomerular filtrat ion rate (GFR) AmericanOrdered By: Ethan Rodriguez on 04-24-2024 Estimated glomerular filtration rate (GFR) 37 mL/min Low >60 [facility] Glomerular filtration rate ( GFR) estimationOrdered By: Ethan Rodriguez on 04-24-2024 Glomerular filtration rate (GFR) estimation 31 mL/min Low >60 [facility] Glucose measurementOrdered B y: Ethan Rodriguez on 04-24-2024 Glucose measurement 65 mg/dL Low 74-106 [facility] Hematocrit Auto (Bld) [Volum e fraction]Ordered By: Ethan Rodriguez on 04-24-2024 Automated blood hematocrit (percentage) 35.3 % Low 37-47 [facility] Hemoglobin measurementOrdere d By: Ethan Rodriguez on 04-24-2024 Hemoglobin measurement 10.4 g/dL Low 12.0-15.0 [facility] MCV (RBC) [Entitic vol]Order ed By: Ethan Rodriguez on 04-24-2024 MCV (mean corpuscular volume) determination 92.7 fL 81-99 [facility] Mean corpuscular hemoglobin (MCH) determinationOrdered By: Ethan Rodriguez on 04-24-2024 Mean corpuscular hemoglobin (MCH) determination 27.3 pg 27.0-32.0 [facility] Mean corpuscular hemoglobin concentration (MCHC) determinationOrdered By: Ethan Rodriguez on 04-24-2024 Mean corpuscular hemoglobin concentration (MCHC) determination 29.5 g/dL Low 32-36 [facility] Mean platelet volume determi nationOrdered By: Ethan Rodriguez on 04-24-2024 Mean platelet volume determination 11.0 fl 6.2-12.0 [facility] Platelet countOrdered By: Chester Rodriguez on 04-24-2024 Platelet count 105 K/mm3 Low 150-450 [facility] Potassium measurementOrdered By: Ethan Rodriguez on 04-24-2024 Potassium measurement 4.9 mmol/L 3.5-5.1 [facility] RBC Auto (Bld) [#/Vol]Ordere d By: Ethan Rodriguez on 04-24-2024 Automated blood erythrocyte count 3.81 M/mm3 Low 4.2-5.4 [facility] Serum anion gap measurementO rdered By: Ethan Rodriguez on 04-24-2024 Serum anion gap measurement 2 Low 5-15 [facility] Sodium levelOrdered By: Ethan Rodriguez on 04-24-2024 Sodium level 140 mmol/L 136-145 [facility] T3 IA [Mass/Vol]Ordered By: Ethan Rodriguez on 04-24-2024 Serum or plasma triiodothyronine measurement by immunoassay (mass/volume) 0.64 ng/mL 0.6-1.81 [facility] T3 Total - Triiodothyronineo n 04-24-2024 T3 Total 0.64 ng/mL Normal 0.6-1.81 [facility] Comment on above: Order Comment: 103 Performed By: #### L 500.2500, L501.9310, L501.9186, L501.9520, L100.0500 ####[facility] [address] [facility] [place], [place], [id number] T4 Total, Thyroxinon 024 T4 [Mass/Vol] 6.1 ug/dL Normal 4.8-13.9 [facility] Comment on above: Order Comment: 103 Performed By: #### L 500.2500, L501.9310, L501.9186, L501.9520, L100.0500 ####[facility] [address] [facility] [place], [place], [address] T4 [Mass/Vol]Ordered By: Ava Rodriguez on 04-24-2024 Serum or plasma thyroxine (T4) measurement (mass/volume) 6.1 ug/dL 4.8-13.9 [facility] TSH QnOrdered By: Ethan cavlert on 04-24-2024 Serum or plasma thyroid stimulating hormone (TSH) measurement (units/volume) 12.000 uIU/mL High 0.358-3.74 0 [facility] Thyroid Stim Hormone (TSH)on 04-24-2024 TSH 12.000 uIU/mL High 0.358-3.74 0 [facility] Comment on above: Order Comment: 103 Performed By: #### L 500.2500, L501.9310, L501.9186, L501.9520, L100.0500 ####[facility] [address] [place], [address] Urea nitrogen [Mass/Vol]Orde red By: Ethan Rodriguez on 04-24-2024 Serum or plasma urea nitrogen measurement (mass/volume) 21 mg/dL High - [facility] White blood cell (WBC) count Ordered By: Ethan Rodriguez on 04-24-2024 White blood cell (WBC) count 4.5 K/mm3 4.4-11.0 [facility] Basic Metabolic Profile (BMP )on 04-23-2024 BUN Normal - [facility] Comment on above: Order Comment: 103.1 Result Comment: UTO Performed By: #### L 500.2500, L100.0500 ####[facility] [address] [place], [address] BUN/CRE Normal 10-20 [facility] Comment on above: Order Comment: 103.1 Result Comment: UTO Performed By: #### L 500.2500, L100.0500 ####[facility] [address] [place], [address] CA,Total Normal 8.5-10.1 [facility] Comment on above: Order Comment: 103.1 Result Comment: UTO Performed By: #### L 500.2500, L100.0500 ####[facility] [address] [place], [address] CL Normal 98-107 [facility] Comment on above: Order Comment: 103.1 Result Comment: UTO Performed By: #### L 500.2500, L100.0500 ####[facility] [address] [place], [address] CO2 Normal 21.0-32.0 [facility] Comment on above: Order Comment: 103.1 Result Comment: UTO Performed By: #### L 500.2500, L100.0500 ####[facility] [address] [place], [address] CREAT,SERUM Normal 0.55-1.02 [facility] Comment on above: Order Comment: 103.1 Result Comment: UTO Performed By: #### L 500.2500, L100.0500 ####[facility] [address] [place], [address] EST GFR Normal >60 [facility] Comment on above: Order Comment: 103.1 Result Comment: UTO Performed By: #### L 500.2500, L100.0500 ####[facility] [address] [place], [address] EST GFR - AA Normal >60 [facility] Comment on above: Order Comment: 103.1 Result Comment: UTO Performed By: #### L 500.2500, L100.0500 ####[facility] [address] [place], [address] GAP Normal 5-15 [facility] Comment on above: Order Comment: 103.1 Result Comment: UTO Performed By: #### L 500.2500, L100.0500 ####[facility] [address] [place], [address] GLU Normal 74-106 [facility] Comment on above: Order Comment: 103.1 Result Comment: UTO Performed By: #### L 500.2500, L100.0500 ####[facility] [address] [place], [address] Potassium Normal 3.5-5.1 [facility] Comment on above: Order Comment: 103.1 Result Comment: UTO Performed By: #### L 500.2500, L100.0500 ####[facility] [address] [place], [address] Basic Metabolic Profile (BMP) Normal 136-145 [facility] Comment on above: Order Comment: 103.1 Result Comment: UTO Performed By: #### L 500.2500, L100.0500 ####[facility] [address] [place], [address] CBC-Complete Blood Cnt No Di ffon 04-23-2024 HCT Normal 37-47 [facility] Comment on above: Order Comment: 103.1 Result Comment: UTO Performed By: #### L 500.2500, L100.0500 ####[facility] [address] [place], [address] HGB Normal 12.0-15.0 [facility] Comment on above: Order Comment: 103.1 Result Comment: UTO Performed By: #### L 500.2500, L100.0500 ####[facility] [address] [place], [address] MCH Normal 27.0-32.0 [facility] Comment on above: Order Comment: 103.1 Result Comment: UTO Performed By: #### L 500.2500, L100.0500 ####[facility] [address] [place], [address] MCHC Normal 32-36 [facility] Comment on above: Order Comment: 103.1 Result Comment: UTO Performed By: #### L 500.2500, L100.0500 ####[facility] [address] [place], [address] MCV Normal 81-99 [facility] Comment on above: Order Comment: 103.1 Result Comment: UTO Performed By: #### L 500.2500, L100.0500 ####[facility] [address] [place], [address] PLT Normal 150-450 [facility] Comment on above: Order Comment: 103.1 Result Comment: UTO Performed By: #### L 500.2500, L100.0500 ####[facility] [address] [place], [address] RBC Normal 4.2-5.4 [facility] Comment on above: Order Comment: 103.1 Result Comment: UTO Performed By: #### L 500.2500, L100.0500 ####[facility] [address] [place], [address] RDW CV Normal 11.6-14.6 [facility] Comment on above: Order Comment: 103.1 Result Comment: UTO Performed By: #### L 500.2500, L100.0500 ####[facility] [address] [place], [address] RDW SD Normal 35.1-43.9 [facility] Comment on above: Order Comment: 103.1 Result Comment: UTO Performed By: #### L 500.2500, L100.0500 ####[facility] [address] [place], [address] WBC Normal 4.4-11.0 [facility] Comment on above: Order Comment: 103.1 Result Comment: UTO Performed By: #### L 500.2500, L100.0500 ####[facility] [address] [place], [address] ALP [Catalytic activity/Vol] Ordered By: Ethan Rodriguez on 04-17-2024 Serum or plasma alkaline phosphatase measurement 71 U/L 45-117 [facility] ALT [Catalytic activity/Vol] Ordered By: Ethan Rodriguez on 04-17-2024 Serum or plasma alanine aminotransferase (ALT) measurement 8 U/L Low 13-56 [facility] Albumin [Mass/Vol]Ordered By : Ethan Rodriguez on 04-17-2024 Serum or plasma albumin measurement (mass/volume) 1.7 g/dL Low 3.2-5.0 [facility] Albumin to globulin ratioOrd ered By: Ethan Rodriguez on 04-17-2024 Albumin to globulin ratio 0.4 RATIO Low 0.9-2.4 [facility] Ammoniaon 04-17-2024 Ammonia (P) [Moles/Vol] 22.0 umol/L Normal 11-32 [facility] Comment on above: Performed By: #### L 100.0500, L100.4500, L503.5510, L504.2610, L500.4050, M100.6795, M100.6796 ####[facility] [address] [place], [place], [phone]) Bilirubin, totalOrdered By: Ethan Rodriguez on 04-17-2024 Bilirubin, total 0.40 mg/dL 0.20-1.00 [facility] Blood urea nitrogen (BUN)/cr eatinine ratioOrdered By: Ethan Rodriguez on 04-17-2024 Blood urea nitrogen (BUN)/creatinine ratio 18.1 RATIO - [facility] CBC-Complete Blood Cnt No Di ffon 04-17-2024 Erythrocyte distribution width (RBC) [Ratio] 17.9 % High 11.6-14.6 [facility] Comment on above: Performed By: #### L 100.0500, L100.4500, L503.5510, L504.2610, L500.4050, M100.6795, M100.6796 ####[facility] [address] [place], [phone] Hematocrit (Bld) [Volume fraction] 37.4 % Normal 37-47 [facility] Comment on above: Performed By: #### L 100.0500, L100.4500, L503.5510, L504.2610, L500.4050, M100.6795, M100.6796 ####[facility] [address] [place], [place], [phone]) Hemoglobin (Bld) [Mass/Vol] 10.9 g/dL Low 12.0-15.0 [facility] Comment on above: Performed By: #### L 100.0500, L100.4500, L503.5510, L504.2610, L500.4050, M100.6795, M100.6796 ####[facility] [address] [place], [address] MCH (RBC) [Entitic mass] 27.3 pg Normal 27.0-32.0 [facility] Comment on above: Performed By: #### L 100.0500, L100.4500, L503.5510, L504.2610, L500.4050, M100.6795, M100.6796 ####[facility] [address] [place], [address] MCHC (RBC) [Mass/Vol] 29.1 g/dL Low 32-36 [facility] Comment on above: Performed By: #### L 100.0500, L100.4500, L503.5510, L504.2610, L500.4050, M100.6795, M100.6796 ####[facility] [address] [place], [address] MCV (RBC) [Entitic vol] 93.5 fL Normal 81-99 [facility] Comment on above: Performed By: #### L 100.0500, L100.4500, L503.5510, L504.2610, L500.4050, M100.6795, M100.6796 ####[facility] [address] [place], [address] Platelet mean volume (Bld) [Entitic vol] 9.8 fL Normal 6.2-12.0 [facility] Comment on above: Performed By: #### L 100.0500, L100.4500, L503.5510, L504.2610, L500.4050, M100.6795, M100.6796 ####[facility] [address] [place], [address] Platelets (Bld) [#/Vol] 92 10*3/uL Low 150-450 [facility] Comment on above: Performed By: #### L 100.0500, L100.4500, L503.5510, L504.2610, L500.4050, M100.6795, M100.6796 ####[facility] [address] [place], [address] RBC (Bld) [#/Vol] 4.00 10*6/uL Low 4.2-5.4 [facility] Comment on above: Performed By: #### L 100.0500, L100.4500, L503.5510, L504.2610, L500.4050, M100.6795, M100.6796 ####[facility] [address] [place], [address] RDW SD 61.1 fl High 35.1-43.9 [facility] Comment on above: Performed By: #### L 100.0500, L100.4500, L503.5510, L504.2610, L500.4050, M100.6795, M100.6796 ####[facility] [address] [place], [address] WBC (Bld) [#/Vol] 5.5 10*3/uL Normal 4.4-11.0 [facility] Comment on above: Performed By: #### L 100.0500, L100.4500, L503.5510, L504.2610, L500.4050, M100.6795, M100.6796 ####[facility] [address] [place], [address] CDIFF (PCR)on 04-17-2024 CDIFF Normal [facility] Comment on above: Performed By: #### L 100.0500, L100.4500, L503.5510, L504.2610, L500.4050, M100.6795, M100.6796 ####[facility] [address] [place], [place], [id number] Calcium [Mass/Vol]Ordered By : Ethan Rodriguez on 04-17-2024 Serum or plasma calcium measurement (mass/volume) 7.7 mg/dL Low 8.5-10.1 [facility] Carbon dioxide measurementOr dered By: Ethan Rodriguez on 04-17-2024 Carbon dioxide measurement 26.0 mmol/L 21.0-32.0 [facility] Chloride measurementOrdered By: Ethan Rodriguez on 04-17-2024 Chloride measurement 105 mmol/L 98-107 [facility] Clostridium Diff Toxin/Agon 04-17-2024 CDIFF (EIA) Normal [facility] Comment on above: Performed By: #### L 100.0500, L100.4500, L503.5510, L504.2610, L500.4050, M100.6795, M100.6796 ####[facility] [address] [place], [address] Comprehensive Metabolic Prof ilon 04-17-2024 Albumin [Mass/Vol] 1.7 g/dL Low 3.2-5.0 [facility] Comment on above: Order Comment: 1 Performed By: #### L 100.0500, L100.4500, L503.5510, L504.2610, L500.4050, M100.6795, M100.6796 ####[facility] [address] [place], [address] Albumin/Globulin [Mass ratio] 0.4 {ratio} Low 0.9-2.4 [facility] Comment on above: Order Comment: 1 Performed By: #### L 100.0500, L100.4500, L503.5510, L504.2610, L500.4050, M100.6795, M100.6796 ####[facility] [address] [place], [address] ALK P 71 U/L Normal 45-117 [facility] Comment on above: Order Comment: 1 Performed By: #### L 100.0500, L100.4500, L503.5510, L504.2610, L500.4050, M100.6795, M100.6796 ####[facility] [address] [place], [place], [phone] ALT [Catalytic activity/Vol] 8 U/L Low 13-56 [facility] Comment on above: Order Comment: 1 Performed By: #### L 100.0500, L100.4500, L503.5510, L504.2610, L500.4050, M100.6795, M100.6796 ####[facility] [address] [place], [address] AST [Catalytic activity/Vol] 19 U/L Normal 15-37 [facility] Comment on above: Order Comment: 1 Result Comment: Slig ht Hemolysis, Result may be falsely increased. Performed By: #### L 100.0500, L100.4500, L503.5510, L504.2610, L500.4050, M100.6795, M100.6796 ####[facility] [address] [place], [address] Bilirubin [Mass/Vol] 0.40 mg/dL Normal 0.20-1.00 [facility] Comment on above: Order Comment: 1 Result Comment: For patients on eltrombopag therapy, use of Dimension [place] TBIL is not recommended. Performed By: #### L 100.0500, L100.4500, L503.5510, L504.2610, L500.4050, M100.6795, M100.6796 ####[facility] [address] [place], [place], [phone]) BUN/CRE 18.1 RATIO Normal 10-20 [facility] Comment on above: Order Comment: 1 Performed By: #### L 100.0500, L100.4500, L503.5510, L504.2610, L500.4050, M100.6795, M100.6796 ####[facility] [address] [place], [address] CA,Total 7.7 mg/dL Low 8.5-10.1 [facility] Comment on above: Order Comment: 1 Performed By: #### L 100.0500, L100.4500, L503.5510, L504.2610, L500.4050, M100.6795, M100.6796 ####[facility] [address] [place], [address] Chloride [Moles/Vol] 105 mmol/L Normal 98-107 [facility] Comment on above: Order Comment: 1 Performed By: #### L 100.0500, L100.4500, L503.5510, L504.2610, L500.4050, M100.6795, M100.6796 ####[facility] [address] [place], [address] CO2 [Moles/Vol] 26.0 mmol/L Normal 21.0-32.0 [facility] Comment on above: Order Comment: 1 Performed By: #### L 100.0500, L100.4500, L503.5510, L504.2610, L500.4050, M100.6795, M100.6796 ####[facility] [address] [place], [address] Creatinine [Mass/Vol] 2.10 mg/dL High 0.55-1.02 [facility] Comment on above: Order Comment: 1 Result Comment: The validity of the calculated GFR GFRAA in patients over70 years has not been determined. Clinical correlation isessential. Performed By: #### L 100.0500, L100.4500, L503.5510, L504.2610, L500.4050, M100.6795, M100.6796 ####[facility] [address] [place], [address] EST GFR - AA 31 mL/min Low >60 [facility] Comment on above: Order Comment: 1 Result Comment: Afri can [place] GFR Calc Performed By: #### L 100.0500, L100.4500, L503.5510, L504.2610, L500.4050, M100.6795, M100.6796 ####[facility] [address] [place], [place], [phone]748) GAP 6 Normal 5-15 [facility] Comment on above: Order Comment: 1 Performed By: #### L 100.0500, L100.4500, L503.5510, L504.2610, L500.4050, M100.6795, M100.6796 ####[facility] [address] [place], [address](802) GFR/1.73 sq M.predicted among non-blacks MDRD (S/P/Bld) [Vol rate/Area] 25 mL/min/{1.73_m2} Low >60 [facility] Comment on above: Order Comment: 1 Result Comment: Non- GFR Calc Performed By: #### L 100.0500, L100.4500, L503.5510, L504.2610, L500.4050, M100.6795, M100.6796 ####[facility] [address] [place], [address](057) Globulin (S) [Mass/Vol] 4.0 g/dL Normal 2.2-4.2 [facility] Comment on above: Order Comment: 1 Performed By: #### L 100.0500, L100.4500, L503.5510, L504.2610, L500.4050, M100.6795, M100.6796 ####[facility] [address] [place], [address](519) Glucose [Mass/Vol] 70 mg/dL Low 74-106 [facility] Comment on above: Order Comment: 1 Performed By: #### L 100.0500, L100.4500, L503.5510, L504.2610, L500.4050, M100.6795, M100.6796 ####[facility] [address] [place], [address] Potassium [Moles/Vol] 4.2 mmol/L Normal 3.5-5.1 [facility] Comment on above: Order Comment: 1 Result Comment: Slig ht Hemolysis, Result may be falsely increased. Performed By: #### L 100.0500, L100.4500, L503.5510, L504.2610, L500.4050, M100.6795, M100.6796 ####[facility] [address] [place], [address] Sodium [Moles/Vol] 137 mmol/L Normal 136-145 [facility] Comment on above: Order Comment: 1 Performed By: #### L 100.0500, L100.4500, L503.5510, L504.2610, L500.4050, M100.6795, M100.6796 ####[facility] [address] [place], [address] T PROT 5.7 g/dL Low 6.4-8.2 [facility] Comment on above: Order Comment: 1 Performed By: #### L 100.0500, L100.4500, L503.5510, L504.2610, L500.4050, M100.6795, M100.6796 ####[facility] [address] [place], [address] Urea nitrogen [Mass/Vol] 38 mg/dL High 7-18 [facility] Comment on above: Order Comment: 1 Performed By: #### L 100.0500, L100.4500, L503.5510, L504.2610, L500.4050, M100.6795, M100.6796 ####[facility] [address] [place], [place], [address] Creatinine [Mass/Vol]Ordered By: Ethan Rodriguez on 04-17-2024 Serum or plasma creatinine measurement (mass/volume) 2.10 mg/dL High 0.55-1.02 [facility] Differential Commenton 04-17 SMEAR COMMENT COMMENT Normal [facility] Comment on above: Result Comment: PLT POPULATION - MODERATELY DECREASED. Performed By: #### L 100.0500, L100.4500, L503.5510, L504.2610, L500.4050, M100.6795, M100.6796 ####[facility] [address] [place], [place], [id number] Erythrocyte distribution wid th (RBC) [Entitic vol]Ordered By: Ethan Rodriguez on 04-17-2024 Erythrocyte distribution width standard deviation 61.1 fl High 35.1-43.9 [facility] Erythrocyte distribution wid th (RBC) [Ratio]Ordered By: Ethan Rodriguez on 04-17-2024 Erythrocyte distribution width ratio 17.9 % High 11.6-14.6 [facility] Estimated glomerular filtrat ion rate (GFR) AmericanOrdered By: Ethan Rodriguez on 04-17-2024 Estimated glomerular filtration rate (GFR) 31 mL/min Low >60 [facility] Glomerular filtration rate ( GFR) estimationOrdered By: Ethan Rodriguez on 04-17-2024 Glomerular filtration rate (GFR) estimation 25 mL/min Low >60 [facility] Glucose measurementOrdered B y: Ethan Rodriguez on 04-17-2024 Glucose measurement 70 mg/dL Low 74-106 [facility] Hematocrit Auto (Bld) [Volum e fraction]Ordered By: Ethan Rodriguez on 04-17-2024 Automated blood hematocrit (percentage) 37.4 % 37-47 [facility] Hemoglobin measurementOrdere d By: Ethan Rodriguez on 04-17-2024 Hemoglobin measurement 10.9 g/dL Low 12.0-15.0 [facility] LDHon 04-17-2024 LDH 237 U/L Normal 84-246 [facility] Comment on above: Order Comment: 1 Result Comment: Slig ht Hemolysis, Result may be falsely increased. Performed By: #### L 100.0500, L100.4500, L503.5510, L504.2610, L500.4050, M100.6795, M100.6796 ####[facility] [address] [place], [address] Lactate dehydrogenase (LDH) measurementOrdered By: Ethan Rodriguez on 04-17-2024 Lactate dehydrogenase (LDH) measurement 237 U/L 84-246 [facility] MCV (RBC) [Entitic vol]Order ed By: Ethan Rodriguez on 04-17-2024 MCV (mean corpuscular volume) determination 93.5 fL 81-99 [facility] Manual differential comment Horace (Bld) [Interp]Ordered By: Ethan Rodriguez on 04-17-2024 Blood manual differential comment interpretation (narrative result) COMMENT [facility] Mean corpuscular hemoglobin (MCH) determinationOrdered By: Ethan Rodriguez on 04-17-2024 Mean corpuscular hemoglobin (MCH) determination 27.3 pg 27.0-32.0 [facility] Mean corpuscular hemoglobin concentration (MCHC) determinationOrdered By: Ethan Rodriguez on 04-17-2024 Mean corpuscular hemoglobin concentration (MCHC) determination 29.1 g/dL Low 32-36 [facility] Mean platelet volume determi nationOrdered By: Ethan Rodriguez on 04-17-2024 Mean platelet volume determination 9.8 fl 6.2-12.0 [facility] No Panel InformationOrdered By: Ethan Rodriguez on 04-17-2024 19 U/L 15-37 [facility] Platelet countOrdered By: Chester Rodriguez on 04-17-2024 Platelet count 92 K/mm3 Low 150-450 [facility] Potassium measurementOrdered By: Ethan Rodriguez on 04-17-2024 Potassium measurement 4.2 mmol/L 3.5-5.1 [facility] RBC Auto (Bld) [#/Vol]Ordere d By: Ethan Rodriguez on 04-17-2024 Automated blood erythrocyte count 4.00 M/mm3 Low 4.2-5.4 [facility] Serum anion gap measurementO rdered By: Ethan Rodriguez on 04-17-2024 Serum anion gap measurement 6 5-15 [facility] Serum globulin measurementOr dered By: Ethan Rodriguez on 04-17-2024 Serum globulin measurement 4.0 g/dL 2.2-4.2 [facility] Sodium levelOrdered By: Ethan Rodriguez on 04-17-2024 Sodium level 137 mmol/L 136-145 [facility] Total proteinOrdered By: Ava Rodriguez on 04-17-2024 Total protein 5.7 g/dL Low 6.4-8.2 [facility] Urea nitrogen [Mass/Vol]Orde red By: Ethan Rodriguez on 04-17-2024 Serum or plasma urea nitrogen measurement (mass/volume) 38 mg/dL High - [facility] Venous blood ammonia measure mentOrdered By: Ethan Rodriguez on 04-17-2024 Venous blood ammonia measurement 22.0 umol/L [facility] White blood cell (WBC) count Ordered By: Ethan Rodriguez on 04-17-2024 White blood cell (WBC) count 5.5 K/mm3 4.4-11.0 [facility] C. difficile Ql (Stl)Ordered By: Ethan Rodriguez on 04-16-2024 Stool Clostridium difficile detection Toxigenic C. difficile Abnormal [facility] Miscellaneous procedureOrder ed By: Angie Torres on 04-15-2024 Miscellaneous procedure See comment [facility] CBC-Complete Blood Cnt No Di ffon 04-12-2024 Erythrocyte distribution width (RBC) [Ratio] 17.7 % High 11.6-14.6 [facility] Comment on above: Order Comment: 103-1 Performed By: #### L 500.4050, L100.0500 ####[facility] [address] [place], [address] Hematocrit (Bld) [Volume fraction] 36.0 % Low 37-47 [facility] Comment on above: Order Comment: 103-1 Performed By: #### L 500.4050, L100.0500 ####[facility] [address] [place], [address] Hemoglobin (Bld) [Mass/Vol] 10.7 g/dL Low 12.0-15.0 [facility] Comment on above: Order Comment: 103-1 Performed By: #### L 500.4050, L100.0500 ####[facility] [address] [place], [address] MCH (RBC) [Entitic mass] 27.3 pg Normal 27.0-32.0 [facility] Comment on above: Order Comment: 103-1 Performed By: #### L 500.4050, L100.0500 ####[facility] [address] [place], [address] MCHC (RBC) [Mass/Vol] 29.7 g/dL Low 32-36 [facility] Comment on above: Order Comment: 103-1 Performed By: #### L 500.4050, L100.0500 ####[facility] [address] [place], [address] MCV (RBC) [Entitic vol] 91.8 fL Normal 81-99 [facility] Comment on above: Order Comment: 103-1 Performed By: #### L 500.4050, L100.0500 ####[facility] [address] [place], [address] Platelet mean volume (Bld) [Entitic vol] 9.2 fL Normal 6.2-12.0 [facility] Comment on above: Order Comment: 103-1 Performed By: #### L 500.4050, L100.0500 ####[facility] [address] [place], [address] Platelets (Bld) [#/Vol] 133 10*3/uL Low 150-450 [facility] Comment on above: Order Comment: 103-1 Performed By: #### L 500.4050, L100.0500 ####[facility] [address] [place], [address] RBC (Bld) [#/Vol] 3.92 10*6/uL Low 4.2-5.4 [facility] Comment on above: Order Comment: 103-1 Performed By: #### L 500.4050, L100.0500 ####[facility] [address] [place], [address] RDW SD 59.2 fl High 35.1-43.9 [facility] Comment on above: Order Comment: 103-1 Performed By: #### L 500.4050, L100.0500 ####[facility] [address] [place], [address] WBC (Bld) [#/Vol] 11.4 10*3/uL High 4.4-11.0 [facility] Comment on above: Order Comment: 103-1 Performed By: #### L 500.4050, L100.0500 ####[facility] [address] [place], [address] Comprehensive Metabolic Prof [facility] 04-12-2024 Albumin [Mass/Vol] 1.7 g/dL Low 3.2-5.0 [facility] Comment on above: Order Comment: 103-1 Performed By: #### L 500.4050, L100.0500 ####[facility] [address] [place], [address] Albumin/Globulin [Mass ratio] 0.4 {ratio} Low 0.9-2.4 [facility] Comment on above: Order Comment: 103-1 Performed By: #### L 500.4050, L100.0500 ####[facility] [address] [place], [address] ALK P 60 U/L Normal 45-117 [facility] Comment on above: Order Comment: 103-1 Performed By: #### L 500.4050, L100.0500 ####[facility] [address] [place], [address] ALT [Catalytic activity/Vol] 10 U/L Low 13-56 [facility] Comment on above: Order Comment: 103-1 Performed By: #### L 500.4050, L100.0500 ####[facility] [address] [place], [address] AST [Catalytic activity/Vol] 13 U/L Low 15-37 [facility] Comment on above: Order Comment: 103-1 Performed By: #### L 500.4050, L100.0500 ####[facility] [address] [place], [address] Bilirubin [Mass/Vol] 0.40 mg/dL Normal 0.20-1.00 [facility] Comment on above: Order Comment: 103-1 Result Comment: For patients on eltrombopag therapy, use of Dimension [place] TBIL is not recommended. Performed By: #### L 500.4050, L100.0500 ####[facility] [address] [place], [address] BUN/CRE 22.6 RATIO High 10-20 [facility] Comment on above: Order Comment: 103-1 Performed By: #### L 500.4050, L100.0500 ####[facility] [address] [place], [address] CA,Total 7.8 mg/dL Low 8.5-10.1 [facility] Comment on above: Order Comment: 103-1 Performed By: #### L 500.4050, L100.0500 ####[facility] [address] [place], [address] Chloride [Moles/Vol] 102 mmol/L Normal 98-107 [facility] Comment on above: Order Comment: 103-1 Performed By: #### L 500.4050, L100.0500 ####[facility] [address] [place], [address] CO2 [Moles/Vol] 28.0 mmol/L Normal 21.0-32.0 [facility] Comment on above: Order Comment: Performed By: #### L 500.4050, L100.0500 ####[facility] [address] [place], [address] Creatinine [Mass/Vol] 2.35 mg/dL High 0.55-1.02 [facility] Comment on above: Order Comment: 103- Result Comment: The validity of the calculated GFR GFRAA in patients over70 years has not been determined. Clinical correlation isessential. Performed By: #### L 500.4050, L100.0500 ####[facility] [address] [place], [address] EST GFR - AA 27 mL/min Low >60 [facility] Comment on above: Order Comment: Result Comment: Afri can [place] GFR Calc Performed By: #### L 500.4050, L100.0500 ####[facility] [address] [place], [address] GAP 6 Normal 5-15 [facility] Comment on above: Order Comment: Performed By: #### L 500.4050, L100.0500 ####[facility] [address] [place], [address] GFR/1.73 sq M.predicted among non-blacks MDRD (S/P/Bld) [Vol rate/Area] 22 mL/min/{1.73_m2} Low >60 [facility] Comment on above: Order Comment: 103 Result Comment: Non- GFR Calc Performed By: #### L 500.4050, L100.0500 ####[facility] [address] [place], [address] Globulin (S) [Mass/Vol] 4.0 g/dL Normal 2.2-4.2 [facility] Comment on above: Order Comment: 103-1 Performed By: #### L 500.4050, L100.0500 ####[facility] [address] [place], [address] Glucose [Mass/Vol] 88 mg/dL Normal 74-106 [facility] Comment on above: Order Comment: 103-1 Performed By: #### L 500.4050, L100.0500 ####[facility] [address] [place], [address] Potassium [Moles/Vol] 4.0 mmol/L Normal 3.5-5.1 [facility] Comment on above: Order Comment: 103-1 Performed By: #### L 500.4050, L100.0500 ####[facility] [address] [place], [address] Sodium [Moles/Vol] 136 mmol/L Normal 136-145 [facility] Comment on above: Order Comment: 103-1 Performed By: #### L 500.4050, L100.0500 ####[facility] [address] [place], [address] T PROT 5.7 g/dL Low 6.4-8.2 [facility] Comment on above: Order Comment: 103-1 Performed By: #### L 500.4050, L100.0500 ####[facility] [address] [place], [address] Urea nitrogen [Mass/Vol] 53 mg/dL High 7-18 [facility] Comment on above: Order Comment: 103-1 Performed By: #### L 500.4050, L100.0500 ####[facility] [address] [place], [address] Urine Cultureon 04-12-2024 URC Presumptive C albica ns [place] Count 11,000-25,000 Normal [facility] Comment on above: Performed By: #### M 100.2200 ####[facility] [address] [place], [address] Abdomen/Pelvis without Conto n 04-11-2024 Abdomen/Pelvis without Cont Normal [facility] Basic Metabolic Profile (BMP )on 04-11-2024 BUN/CRE 18.3 RATIO Normal 10-20 [facility] Comment on above: Performed By: #### L 509.7000, L100.0100, L500.2500 ####[facility] [address] [place], [address] CA,Total 7.6 mg/dL Low 8.5-10.1 [facility] Comment on above: Performed By: #### L 509.7000, L100.0100, L500.2500 ####[facility] [address] [place], [address] Chloride [Moles/Vol] 100 mmol/L Normal 98-107 [facility] Comment on above: Performed By: #### L 509.7000, L100.0100, L500.2500 ####[facility] [address] [place], [address] CO2 [Moles/Vol] 31.0 mmol/L Normal 21.0-32.0 [facility] Comment on above: Performed By: #### L 509.7000, L100.0100, L500.2500 ####[facility] [address] [place], [address] Creatinine [Mass/Vol] 2.13 mg/dL High 0.55-1.02 [facility] Comment on above: Result Comment: The validity of the calculated GFR GFRAA in patients over70 years has not been determined. Clinical correlation isessential. Performed By: #### L 509.7000, L100.0100, L500.2500 ####[facility] [address] [place], [address] ECRCL 23.69 ml/min Normal [facility] Comment on above: Performed By: #### L 509.7000, L100.0100, L500.2500 ####[facility] [address] [place], [address] EST GFR - AA 30 mL/min Low >60 [facility] Comment on above: Result Comment: Afri can [place] GFR Calc Performed By: #### L 509.7000, L100.0100, L500.2500 ####[facility] [address] [place], [address] GAP 5 Normal 5-15 [facility] Comment on above: Performed By: #### L 509.7000, L100.0100, L500.2500 ####[facility] [address] [place], [address] GFR/1.73 sq M.predicted among non-blacks MDRD (S/P/Bld) [Vol rate/Area] 25 mL/min/{1.73_m2} Low >60 [facility] Comment on above: Result Comment: Non- GFR Calc Performed By: #### L 509.7000, L100.0100, L500.2500 ####[facility] [address] [place], [address] Glucose [Mass/Vol] 87 mg/dL Normal 74-106 [facility] Comment on above: Performed By: #### L 509.7000, L100.0100, L500.2500 ####[facility] [address] [place], [address] Potassium [Moles/Vol] 3.9 mmol/L Normal 3.5-5.1 [facility] Comment on above: Performed By: #### L 509.7000, L100.0100, L500.2500 ####[facility] [address] [place], [address] Sodium [Moles/Vol] 137 mmol/L Normal 136-145 [facility] Comment on above: Performed By: #### L 509.7000, L100.0100, L500.2500 ####[facility] [address] [place], [address] Urea nitrogen [Mass/Vol] 39 mg/dL High 7-18 [facility] Comment on above: Performed By: #### L 509.7000, L100.0100, L500.2500 ####[facility] [address] [place], [address] CBC W/Diff, Automatedon 03-29 PLT EST ADEQUATE Normal ADEQ [facility] Comment on above: Performed By: #### L 509.7000, L100.0100, L500.2500 ####[facility] [address] [place], [address] RED CELL MORPH NORM C+C Normal NORM C C [facility] Comment on above: Performed By: #### L 509.7000, L100.0100, L500.2500 ####[facility] [address] [place], [address] SMEAR COMMENT SCANNED Normal [facility] Comment on above: Result Comment: LEFT SHIFT: BANDS PRESENT 2+ Performed By: #### L 509.7000, L100.0100, L500.2500 ####[facility] [address] [place], [address] Chest 1 View (Portable)on Chest 1 View (Portable) Normal [facility] Emergency Department Summary on 04-11-2024 Emergency Department Summary Normal [facility] M100.678on 04-11-2024 M100.678 Pending SARS-CoV-2 (COVID 19) Negative INFLUENZA A Negative INFLUENZA B Negative RSV PCR Negative Normal [facility] Comment on above: Performed By: #### M 100.678 ####[facility] [address] [place], [address] Procalcitoninon 04-11-2024 Procalcitonin 0.62 ng/mL High 0.00-0.09 [facility] Comment on above: Result Comment: A pr [...] Performed By: #### L 509.7000, L100.0100, L500.2500 ####[facility] [address] [facility] [place], [place], [address] Urinalysis, Completeon 04-11 BACTERIA 1+ /hpf Normal None Seen [facility] Comment on above: Order Comment: COLOR OF URINE MAY AFFECT DIPSTICK RESULTS.PROMOTION PRODUCER TO SPECIFY Performed By: #### L 400.0001 ####[facility] [address] [facility] [place], [address] RBC 0-5 SEEN Normal 0-5 [facility] Comment on above: Order Comment: COLOR OF URINE MAY AFFECT DIPSTICK RESULTS.PROMOTION PRODUCER TO SPECIFY Performed By: #### L 400.0001 ####[facility] [address] [facility] [place], [address] WBC 10-25 SEEN Normal 0-5 [facility] Comment on above: Order Comment: COLOR OF URINE MAY AFFECT DIPSTICK RESULTS.PROMOTION PRODUCER TO SPECIFY Performed By: #### L 400.0001 ####[facility] [address] [place], [address] EPI,SQUAMOUS 0 SEEN Normal 5-10 [facility] Comment on above: Order Comment: COLOR OF URINE MAY AFFECT DIPSTICK RESULTS.PROMOTION PRODUCER TO SPECIFY Performed By: #### L 400.0001 ####[facility] [address] [place], [address] Mucus Ql (Urine sed) 0 SEEN Normal [facility] Comment on above: Order Comment: COLOR OF URINE MAY AFFECT DIPSTICK RESULTS.PROMOTION PRODUCER TO SPECIFY Performed By: #### L 400.0001 ####[facility] [address] [place], [address] Basic Metabolic Profile (BMP )on 04-04-2024 BUN/CRE 11.5 RATIO Normal 10-20 [facility] Comment on above: Order Comment: 103.1 Performed By: #### L 500.2500, L100.0500 ####[facility] [address] [place], [address] CA,Total 8.1 mg/dL Low 8.5-10.1 [facility] Comment on above: Order Comment: 103.1 Performed By: #### L 500.2500, L100.0500 ####[facility] [address] [place], [address] Chloride [Moles/Vol] 99 mmol/L Normal 98-107 [facility] Comment on above: Order Comment: 103.1 Performed By: #### L 500.2500, L100.0500 ####[facility] [address] [place], [address] CO2 [Moles/Vol] 33.0 mmol/L High 21.0-32.0 [facility] Comment on above: Order Comment: 103.1 Performed By: #### L 500.2500, L100.0500 ####[facility] [address] [place], [address] Creatinine [Mass/Vol] 1.65 mg/dL High 0.55-1.02 [facility] Comment on above: Order Comment: 103.1 Result Comment: The validity of the calculated GFR GFRAA in patients over70 years has not been determined. Clinical correlation isessential. Performed By: #### L 500.2500, L100.0500 ####[facility] [address] [place], [address] EST GFR - AA 41 mL/min Low >60 [facility] Comment on above: Order Comment: 103.1 Result Comment: Afri can [place] GFR Calc Performed By: #### L 500.2500, L100.0500 ####[facility] [address] [place], [address] GAP 5 Normal 5-15 [facility] Comment on above: Order Comment: 103.1 Performed By: #### L 500.2500, L100.0500 ####[facility] [address] [place], [address] GFR/1.73 sq M.predicted among non-blacks MDRD (S/P/Bld) [Vol rate/Area] 34 mL/min/{1.73_m2} Low >60 [facility] Comment on above: Order Comment: 103.1 Result Comment: Non- GFR Calc Performed By: #### L 500.2500, L100.0500 ####[facility] [address] [place], [address] Glucose [Mass/Vol] 61 mg/dL Low 74-106 [facility] Comment on above: Order Comment: 103.1 Performed By: #### L 500.2500, L100.0500 ####[facility] [address] [place], [address] Potassium [Moles/Vol] 3.7 mmol/L Normal 3.5-5.1 [facility] Comment on above: Order Comment: 103.1 Performed By: #### L 500.2500, L100.0500 ####[facility] [address] [place], [address] Sodium [Moles/Vol] 137 mmol/L Normal 136-145 [facility] Comment on above: Order Comment: 103.1 Performed By: #### L 500.2500, L100.0500 ####[facility] [address] [place], [address] Urea nitrogen [Mass/Vol] 19 mg/dL High 7-18 [facility] Comment on above: Order Comment: 103.1 Performed By: #### L 500.2500, L100.0500 ####[facility] [address] [place], [address] CBC-Complete Blood Cnt No Di ffon 04-04-2024 Erythrocyte distribution width (RBC) [Ratio] 16.9 % High 11.6-14.6 [facility] Comment on above: Order Comment: 103.1 Performed By: #### L 500.2500, L100.0500 ####[facility] [address] [place], [address] Hematocrit (Bld) [Volume fraction] 35.8 % Low 37-47 [facility] Comment on above: Order Comment: 103.1 Performed By: #### L 500.2500, L100.0500 ####[facility] [address] [place], [address] Hemoglobin (Bld) [Mass/Vol] 10.0 g/dL Low 12.0-15.0 [facility] Comment on above: Order Comment: 103.1 Performed By: #### L 500.2500, L100.0500 ####[facility] [address] [place], [address] MCH (RBC) [Entitic mass] 27.3 pg Normal 27.0-32.0 [facility] Comment on above: Order Comment: 103.1 Performed By: #### L 500.2500, L100.0500 ####[facility] [address] [place], [address] MCHC (RBC) [Mass/Vol] 27.9 g/dL Low 32-36 [facility] Comment on above: Order Comment: 103.1 Performed By: #### L 500.2500, L100.0500 ####[facility] [address] [place], [address] MCV (RBC) [Entitic vol] 97.8 fL Normal 81-99 [facility] Comment on above: Order Comment: 103.1 Performed By: #### L 500.2500, L100.0500 ####[facility] [address] [place], [address] Platelet mean volume (Bld) [Entitic vol] 9.9 fL Normal 6.2-12.0 [facility] Comment on above: Order Comment: 103.1 Performed By: #### L 500.2500, L100.0500 ####[facility] [address] [place], [address] Platelets (Bld) [#/Vol] 202 10*3/uL Normal 150-450 [facility] Comment on above: Order Comment: 103.1 Performed By: #### L 500.2500, L100.0500 ####[facility] [address] [place], [address] RBC (Bld) [#/Vol] 3.66 10*6/uL Low 4.2-5.4 [facility] Comment on above: Order Comment: 103.1 Performed By: #### L 500.2500, L100.0500 ####[facility] [address] [place], [address] RDW SD 61.3 fl High 35.1-43.9 [facility] Comment on above: Order Comment: 103.1 Performed By: #### L 500.2500, L100.0500 ####[facility] [address] [place], [address] WBC (Bld) [#/Vol] 11.4 10*3/uL High 4.4-11.0 [facility] Comment on above: Order Comment: 103.1 Performed By: #### L 500.2500, L100.0500 ####[facility] [address] [place], [address] Thyroid Stim Hormone (TSH)on 03-26-2024 TSH 20.500 uIU/mL High 0.358-3.74 0 [facility] Comment on above: Order Comment: 103.1 Performed By: #### L 501.9520 ####[facility] [address] [place], [address] OP NOTEon 03-22-2024 OP NOTE Normal [facility] Basic Metabolic Profile (BMP )on 03-21-2024 BUN/CRE 6.5 RATIO Low - [facility] Comment on above: Order Comment: 103.1 Performed By: #### L 500.2500, L100.0500 ####[facility] [address] [place], [address] CA,Total 9.1 mg/dL Normal 8.5-10.1 [facility] Comment on above: Order Comment: 103.1 Performed By: #### L 500.2500, L100.0500 ####[facility] [address] [place], [address] Chloride [Moles/Vol] 100 mmol/L Normal 98-107 [facility] Comment on above: Order Comment: 103.1 Performed By: #### L 500.2500, L100.0500 ####[facility] [address] [place], [address] CO2 [Moles/Vol] 30.0 mmol/L Normal 21.0-32.0 [facility] Comment on above: Order Comment: 103.1 Performed By: #### L 500.2500, L100.0500 ####[facility] [address] [place], [address] Creatinine [Mass/Vol] 1.85 mg/dL High 0.55-1.02 [facility] Comment on above: Order Comment: 103.1 Result Comment: The validity of the calculated GFR GFRAA in patients over70 years has not been determined. Clinical correlation isessential. Performed By: #### L 500.2500, L100.0500 ####[facility] [address] [place], [address] EST GFR - AA 36 mL/min Low >60 [facility] Comment on above: Order Comment: 103.1 Result Comment: Afri can [place] GFR Calc Performed By: #### L 500.2500, L100.0500 ####[facility] [address] [place], [address] GAP 3 Low 5-15 [facility] Comment on above: Order Comment: 103.1 Performed By: #### L 500.2500, L100.0500 ####[facility] [address] [place], [address] GFR/1.73 sq M.predicted among non-blacks MDRD (S/P/Bld) [Vol rate/Area] 29 mL/min/{1.73_m2} Low >60 [facility] Comment on above: Order Comment: 103.1 Result Comment: Non- GFR Calc Performed By: #### L 500.2500, L100.0500 ####[facility] [address] [place], [address] Glucose [Mass/Vol] 75 mg/dL Normal 74-106 [facility] Comment on above: Order Comment: 103.1 Performed By: #### L 500.2500, L100.0500 ####[facility] [address] [place], [address] Potassium [Moles/Vol] 4.5 mmol/L Normal 3.5-5.1 [facility] Comment on above: Order Comment: 103.1 Performed By: #### L 500.2500, L100.0500 ####[facility] [address] [place], [address] Sodium [Moles/Vol] 133 mmol/L Low 136-145 [facility] Comment on above: Order Comment: 103.1 Performed By: #### L 500.2500, L100.0500 ####[facility] [address] [place], [address] Urea nitrogen [Mass/Vol] 12 mg/dL Normal 7-18 [facility] Comment on above: Order Comment: 103.1 Performed By: #### L 500.2500, L100.0500 ####[facility] [address] [place], [address] CBC-Complete Blood Cnt No Di ffon 03-21-2024 Erythrocyte distribution width (RBC) [Ratio] 21.2 % High 11.6-14.6 [facility] Comment on above: Order Comment: 103.1 Performed By: #### L 500.2500, L100.0500 ####[facility] [address] [place], [address] Hematocrit (Bld) [Volume fraction] 27.9 % Low 37-47 [facility] Comment on above: Order Comment: 103.1 Performed By: #### L 500.2500, L100.0500 ####[facility] [address] [place], [address] Hemoglobin (Bld) [Mass/Vol] 8.0 g/dL Low 12.0-15.0 [facility] Comment on above: Order Comment: 103.1 Performed By: #### L 500.2500, L100.0500 ####[facility] [id number] [place], [address] MCH (RBC) [Entitic mass] 29.3 pg Normal 27.0-32.0 [facility] Comment on above: Order Comment: 103.1 Performed By: #### L 500.2500, L100.0500 ####[facility] [id number] [place], [address] MCHC (RBC) [Mass/Vol] 28.7 g/dL Low 32-36 [facility] Comment on above: Order Comment: 103.1 Performed By: #### L 500.2500, L100.0500 ####[facility] [id number] [place], [address] MCV (RBC) [Entitic vol] 102.2 fL High 81-99 [facility] Comment on above: Order Comment: 103.1 Performed By: #### L 500.2500, L100.0500 ####[facility] [address] [place], [address] Platelet mean volume (Bld) [Entitic vol] 9.9 fL Normal 6.2-12.0 [facility] Comment on above: Order Comment: 103.1 Performed By: #### L 500.2500, L100.0500 ####[facility] [id number] [place], [address] Platelets (Bld) [#/Vol] 189 10*3/uL Normal 150-450 [facility] Comment on above: Order Comment: 103.1 Performed By: #### L 500.2500, L100.0500 ####[facility] [address] [place], [address] RBC (Bld) [#/Vol] 2.73 10*6/uL Low 4.2-5.4 [facility] Comment on above: Order Comment: 103.1 Performed By: #### L 500.2500, L100.0500 ####[facility] [address] [place], [address] RDW SD 77.0 fl High 35.1-43.9 [facility] Comment on above: Order Comment: 103.1 Performed By: #### L 500.2500, L100.0500 ####[facility] [id number] [place], [address] WBC (Bld) [#/Vol] 5.7 10*3/uL Normal 4.4-11.0 [facility] Comment on above: Order Comment: 103.1 Performed By: #### L 500.2500, L100.0500 ####[facility] [id number] [place], [address] Disch Summon 03-20-2024 Disch Summ Normal [facility] BASIC METABOLIC PANELon - Anion gap [Moles/Vol] 10 mmol/L Normal 10-20 [facility] Comment on above: Order Comment: [facility] has implemented the eGFR calculation approach that does not have a coefficient for race that conforms to the NKF-ASN Task Force Recommendations. Performed By: #### 4 6124 ####[facility] [address] [place] [address] Glenn Gudino M.D. [id number] Calcium [Mass/Vol] 8.3 mg/dL Low 8.4-10.2 [facility] Comment on above: Order Comment: [facility] has implemented the eGFR calculation approach that does not have a coefficient for race that conforms to the NKF-ASN Task Force Recommendations. Performed By: #### 4 6124 ####[facility] [address] [place] [address] Glenn Gudino M.D. [id number] Chloride [Moles/Vol] 98 mmol/L Normal 98-108 [facility] Comment on above: Order Comment: [facility] has implemented the eGFR calculation approach that does not have a coefficient for race that conforms to the NKF-ASN Task Force Recommendations. Performed By: #### 4 6124 ####[facility] [address] [place] [address] Glenn Gudino M.D. [id number] Creatinine [Mass/Vol] 1.32 mg/dL High 0.60-1.10 [facility] Comment on above: Order Comment: [facility] has implemented the eGFR calculation approach that does not have a coefficient for race that conforms to the NKF-ASN Task Force Recommendations. Performed By: #### 4 6124 ####[facility] [address] [place] [address] Glenn Gudino M.D. [id number] EGFR 46 mL/min/1.73 m2 Low >=60 [facility] Comment on above: Order Comment: [facility] has implemented the eGFR calculation approach that does not have a coefficient for race that conforms to the NKF-ASN Task Force Recommendations. Result Comment: Joi mated GFR was calculated using the 2020 CKD-EPI creatinine equation. Performed By: #### 4 6124 ####[facility] [address] [place] [address] Glenn Gudino M.D. [id number] Glucose [Mass/Vol] 76 mg/dL Normal 65-99 [facility] Comment on above: Order Comment: [facility] has implemented the eGFR calculation approach that does not have a coefficient for race that conforms to the NKF-ASN Task Force Recommendations. Performed By: #### 4 6124 ####[facility] [address] [place] [address] Glenn Gudino M.D. [id number] HCO3 (Bld) [Moles/Vol] 30 mmol/L Normal 21-32 [facility] Comment on above: Order Comment: [facility] has implemented the eGFR calculation approach that does not have a coefficient for race that conforms to the NKF-ASN Task Force Recommendations. Performed By: #### 4 6124 ####[facility] [address] [place] [address] Glenn Gudino M.D. [id number] Potassium [Moles/Vol] 4.3 mmol/L Normal 3.5-5.1 [facility] Comment on above: Order Comment: [facility] has implemented the eGFR calculation approach that does not have a coefficient for race that conforms to the NKF-ASN Task Force Recommendations. Result Comment: Slig htly Hemolyzed Performed By: #### 4 6124 ####[facility] [address] [place] [address] Glenn Gudino M.D. [id number] Sodium [Moles/Vol] 134 mmol/L Low 135-145 [facility] Comment on above: Order Comment: [facility] has implemented the eGFR calculation approach that does not have a coefficient for race that conforms to the NKF-ASN Task Force Recommendations. Performed By: #### 4 6124 ####[facility] [address] [place] [address] Glenn Gudino M.D. [id number] Urea nitrogen [Mass/Vol] 12 mg/dL Normal 8-25 [facility] Comment on above: Order Comment: [facility] has implemented the eGFR calculation approach that does not have a coefficient for race that conforms to the NKF-ASN Task Force Recommendations. Performed By: #### 4 6124 ####[facility] [address] [place] [address] Glenn Gudino M.D. [id number] Urea nitrogen/Creatinine [Mass ratio] 9.1 mg/mg Low 10.0-20.0 [facility] Comment on above: Order Comment: [facility] has implemented the eGFR calculation approach that does not have a coefficient for race that conforms to the NKF-ASN Task Force Recommendations. Performed By: #### 4 6124 ####[facility] [address] [place], [place] [address] Glenn Gudino M.D. [id number] CBCon 03-19-2024 AUTO NRBC 0.0 % Normal [facility] Comment on above: Performed By: #### 4 [id number] ####[facility] [address] [place], [place] [address] Glenn Gudino M.D. [id number] AUTO NRBC ABS COUNT 0.00 K/mcL Normal 0.00-0.00 [facility] Comment on above: Performed By: #### 4 [id number] ####[facility] [address] [place], [place] [address] Glenn Gudino M.D. [id number] Erythrocyte distribution width (RBC) [Ratio] 21.2 % High 11.6-14.8 [facility] Comment on above: Performed By: #### 4 5218 ####[facility] [address] [place] [address] Glenn Gudino M.D. [id number] Hematocrit (Bld) [Volume fraction] 27.5 % Low 36.0-46.0 [facility] Comment on above: Performed By: #### 4 [id number] ####[facility] [address] [place], [place] [address]Karma Gudino M.D. [id number] Hemoglobin (Bld) [Mass/Vol] 8.3 g/dL Low 12.0-16.0 [facility] Comment on above: Performed By: #### 4 5218 ####[facility] [address] [place], [place] [address] Glenn Gudino M.D. [id number] MCH (RBC) [Entitic mass] 29.9 pg Normal 26.0-34.0 [facility] Comment on above: Performed By: #### 4 5218 ####[facility] [address] [place], [place] [address] Glenn Gudino M.D. [id number] MCV (RBC) [Entitic vol] 98.9 fL Normal 80.0-100.0 [facility] Comment on above: Performed By: #### 4 [id number] ####[facility] [address] [place], [place] [address] Glenn Gudino M.D. [id number] MEAN CORPUSCULAR HEMOGLOBIN CONC 30.2 g/dL Low 31.0-37.0 [facility] Comment on above: Performed By: #### 4 5218 ####[facility] [address] [place] [address] Glenn Gudino M.D. [id number] Platelet mean volume (Bld) [Entitic vol] 9.8 fL Normal 9.4-12.4 [facility] Comment on above: Performed By: #### 4 [id number] ####[facility] [address] [place], [place] [address] Glenn Gudino M.D. [id number] Platelets (Bld) [#/Vol] 156 10*3/uL Normal 150-400 [facility] Comment on above: Performed By: #### 4 [id number] ####[facility] [address] [place], [place] [address] Glenn Gudino M.D. [id number] RBC (Bld) [#/Vol] 2.78 10*6/uL Low 4.00-5.20 [facility] Comment on above: Performed By: #### 4 [id number] ####[facility] [address] [place], [place] [address] Glenn Gudino M.D. [id number] WBC (Bld) [#/Vol] 6.81 10*3/uL Normal 4.50-11.00 [facility] Comment on above: Performed By: #### 4 [id number] ####[facility] [address] [place], [place] [address] Glenn Gudino M.D. [id number] BASIC METABOLIC PANELon 10-2 Anion gap [Moles/Vol] 11 mmol/L Normal 10-20 [facility] Comment on above: Order Comment: [facility] has implemented the eGFR calculation approach that does not have a coefficient for race that conforms to the NKF-ASN Task Force Recommendations. Performed By: #### 4 6124 ####[facility] [address] [place] [address] Glenn Gudino M.D. [id number] Calcium [Mass/Vol] 8.6 mg/dL Normal 8.4-10.2 [facility] Comment on above: Order Comment: [facility] has implemented the eGFR calculation approach that does not have a coefficient for race that conforms to the NKF-ASN Task Force Recommendations. Performed By: #### 4 6124 ####[facility] [address] [place], [place] [address] Glenn Gudino M.D. [id number] Chloride [Moles/Vol] 97 mmol/L Low 98-108 [facility] Comment on above: Order Comment: [facility] has implemented the eGFR calculation approach that does not have a coefficient for race that conforms to the NKF-ASN Task Force Recommendations. Performed By: #### 4 6124 ####[facility] [address] [place] [address] Glenn Gudino M.D. [id number] Creatinine [Mass/Vol] 2.55 mg/dL High 0.60-1.10 [facility] Comment on above: Order Comment: [facility] has implemented the eGFR calculation approach that does not have a coefficient for race that conforms to the NKF-ASN Task Force Recommendations. Performed By: #### 4 6124 ####[facility] [address] [place], [place] [address] Glenn Gudino M.D. [id number] EGFR 21 mL/min/1.73 m2 Low >=60 [facility] Comment on above: Order Comment: [facility] has implemented the eGFR calculation approach that does not have a coefficient for race that conforms to the NKF-ASN Task Force Recommendations. Result Comment: Joi mated GFR was calculated using the 2020 CKD-EPI creatinine equation. Performed By: #### 4 6124 ####[facility] [address] [place], [place] [address] Glenn Gudino M.D. [id number] Glucose [Mass/Vol] 84 mg/dL Normal 65-99 [facility] Comment on above: Order Comment: [facility] has implemented the eGFR calculation approach that does not have a coefficient for race that conforms to the NKF-ASN Task Force Recommendations. Performed By: #### 4 6124 ####[facility] [address] [place], [place] [address] Glenn Gudino M.D. [id number] HCO3 (Bld) [Moles/Vol] 29 mmol/L Normal 21-32 [facility] Comment on above: Order Comment: [facility] has implemented the eGFR calculation approach that does not have a coefficient for race that conforms to the NKF-ASN Task Force Recommendations. Performed By: #### 4 6124 ####[facility] [address] [place] [address] 13837 Glenn Gudino M.D. [id number] Potassium [Moles/Vol] 4.2 mmol/L Normal 3.5-5.1 [facility] Comment on above: Order Comment: [facility] has implemented the eGFR calculation approach that does not have a coefficient for race that conforms to the NKF-ASN Task Force Recommendations. Performed By: #### 4 6124 ####[facility] [address] [place], [place] [address] Glenn Gudino M.D. [id number] Sodium [Moles/Vol] 133 mmol/L Low 135-145 [facility] Comment on above: Order Comment: [facility] has implemented the eGFR calculation approach that does not have a coefficient for race that conforms to the NKF-ASN Task Force Recommendations. Performed By: #### 4 6124 ####[facility] [address] [place] [address] 72899 Glenn Gudino M.D. [id number] Urea nitrogen [Mass/Vol] 22 mg/dL Normal 8-25 [facility] Comment on above: Order Comment: [facility] has implemented the eGFR calculation approach that does not have a coefficient for race that conforms to the NKF-ASN Task Force Recommendations. Performed By: #### 4 6124 ####[facility] [address] [place], [place] [address] Glenn Gudino M.D. [id number] Urea nitrogen/Creatinine [Mass ratio] 8.6 mg/mg Low 10.0-20.0 [facility] Comment on above: Order Comment: [facility] has implemented the eGFR calculation approach that does not have a coefficient for race that conforms to the NKF-ASN Task Force Recommendations. Performed By: #### 4 6124 ####[facility] [address] [place], [place] [address] Glenn Gudino M.D. [id number] CBCon 03-18-2024 AUTO NRBC 0.0 % Normal [facility] Comment on above: Performed By: #### 4 [id number] ####[facility] [address] [place], [place] [address] Glenn Gudino M.D. [id number] AUTO NRBC ABS COUNT 0.00 K/mcL Normal 0.00-0.00 [facility] Comment on above: Performed By: #### 4 [id number] ####[facility] [address] [place] [address] 08275 Glenn Gudino M.D. [id number] Erythrocyte distribution width (RBC) [Ratio] 20.8 % High 11.6-14.8 [facility] Comment on above: Performed By: #### 4 5218 ####[facility] [address] [place], [place] [address] Glenn Gudino M.D. [id number] Hematocrit (Bld) [Volume fraction] 26.6 % Low 36.0-46.0 [facility] Comment on above: Performed By: #### 4 [id number] ####[facility] [address] [place] [address] Glenn Gudino M.D. [id number] Hemoglobin (Bld) [Mass/Vol] 8.1 g/dL Low 12.0-16.0 [facility] Comment on above: Performed By: #### 4 [id number] ####[facility] [address] [place] [address] Glenn Gudino M.D. [id number] MCH (RBC) [Entitic mass] 29.9 pg Normal 26.0-34.0 [facility] Comment on above: Performed By: #### 4 [id number] ####[facility] [address] [place], [place] [address] Glenn Gudino M.D. [id number] MCV (RBC) [Entitic vol] 98.2 fL Normal 80.0-100.0 [facility] Comment on above: Performed By: #### 4 [id number] ####[facility] [address] [place], [place] [address] Glenn Gudino M.D. [id number] MEAN CORPUSCULAR HEMOGLOBIN CONC 30.5 g/dL Low 31.0-37.0 [facility] Comment on above: Performed By: #### 4 [id number] ####[facility] [address] [place], [place] [address] Glenn Gudino M.D. [id number] Platelet mean volume (Bld) [Entitic vol] 9.6 fL Normal 9.4-12.4 [facility] Comment on above: Performed By: #### 4 [id number] ####[facility] [address] [place] [address] 09141 Glenn Gudino M.D. [id number] Platelets (Bld) [#/Vol] 167 10*3/uL Normal 150-400 [facility] Comment on above: Performed By: #### 4 [id number] ####[facility] [address] [place] [address] 66202 Glenn Gudino M.D. [id number] RBC (Bld) [#/Vol] 2.71 10*6/uL Low 4.00-5.20 [facility] Comment on above: Performed By: #### 4 [id number] ####[facility] [address] [place] [address] 54699 Glenn Gudino M.D. [id number] WBC (Bld) [#/Vol] 6.74 10*3/uL Normal 4.50-11.00 [facility] Comment on above: Performed By: #### 4 5218 ####[facility] [address] [place] [address]143 Glenn Gudino M.D. [id number] BASIC METABOLIC PANELon 10-2 -2023 Anion gap [Moles/Vol] 12 mmol/L Normal 10-20 [facility] Comment on above: Order Comment: [facility] has implemented the eGFR calculation approach that does not have a coefficient for race that conforms to the NKF-ASN Task Force Recommendations. Performed By: #### 4 6124 ####[facility] [address] [place] [address] 69811 Glenn Gudino M.D. [id number] Calcium [Mass/Vol] 8.3 mg/dL Low 8.4-10.2 [facility] Comment on above: Order Comment: [facility] has implemented the eGFR calculation approach that does not have a coefficient for race that conforms to the NKF-ASN Task Force Recommendations. Performed By: #### 4 6124 ####[facility] [address] [place] [address] 80528 Glenn Gudino M.D. [id number] Chloride [Moles/Vol] 95 mmol/L Low 98-108 [facility] Comment on above: Order Comment: [facility] has implemented the eGFR calculation approach that does not have a coefficient for race that conforms to the NKF-ASN Task Force Recommendations. Performed By: #### 4 6124 ####[facility] [address] [place] [address] 36880 Glenn Gudino M.D. [id number] Creatinine [Mass/Vol] 1.69 mg/dL High 0.60-1.10 [facility] Comment on above: Order Comment: [facility] has implemented the eGFR calculation approach that does not have a coefficient for race that conforms to the NKF-ASN Task Force Recommendations. Performed By: #### 4 6124 ####[facility] [address] [place] [address] 96047 Glenn Gudino M.D. [id number] EGFR 34 mL/min/1.73 m2 Low >=60 [facility] Comment on above: Order Comment: [facility] has implemented the eGFR calculation approach that does not have a coefficient for race that conforms to the NKF-ASN Task Force Recommendations. Result Comment: Joi mated GFR was calculated using the 2020 CKD-EPI creatinine equation. Performed By: #### 4 6124 ####[facility] [address] [place] [address] 55918 Glenn Gudino M.D. [id number] Glucose [Mass/Vol] 112 mg/dL High 65-99 [facility] Comment on above: Order Comment: [facility] has implemented the eGFR calculation approach that does not have a coefficient for race that conforms to the NKF-ASN Task Force Recommendations. Performed By: #### 4 6129 ####[facility] [address] [place] [address]16 Glenn Gudino M.D. [id number] HCO3 (Bld) [Moles/Vol] 28 mmol/L Normal 21-32 [facility] Comment on above: Order Comment: [facility] has implemented the eGFR calculation approach that does not have a coefficient for race that conforms to the NKF-ASN Task Force Recommendations. Performed By: #### 4 6124 ####[facility] [address] [place] [address] Glenn Gudino M.D. [id number] Potassium [Moles/Vol] 3.9 mmol/L Normal 3.5-5.1 [facility] Comment on above: Order Comment: [facility] has implemented the eGFR calculation approach that does not have a coefficient for race that conforms to the NKF-ASN Task Force Recommendations. Result Comment: Slig htly Hemolyzed Performed By: #### 4 6124 ####[facility] [address] [place], [place] [address] Glenn Gudino M.D. [id number] Sodium [Moles/Vol] 131 mmol/L Low 135-145 [facility] Comment on above: Order Comment: [facility] has implemented the eGFR calculation approach that does not have a coefficient for race that conforms to the NKF-ASN Task Force Recommendations. Performed By: #### 4 6124 ####[facility] [address] [place], [place] [address] Glenn Gudino M.D. [id number] Urea nitrogen [Mass/Vol] 16 mg/dL Normal 8-25 [facility] Comment on above: Order Comment: [facility] has implemented the eGFR calculation approach that does not have a coefficient for race that conforms to the NKF-ASN Task Force Recommendations. Performed By: #### 4 6178 ####[facility] [address] [place] [address] 24489 Glenn Gudino M.D. [id number] Urea nitrogen/Creatinine [Mass ratio] 9.5 mg/mg Low 10.0-20.0 [facility] Comment on above: Order Comment: [facility] has implemented the eGFR calculation approach that does not have a coefficient for race that conforms to the NKF-ASN Task Force Recommendations. Performed By: #### 4 6124 ####[facility] [address] [place] [address] Glenn Gudino M.D. [id number] CBCon 03-17-2024 AUTO NRBC 0.0 % Normal [facility] Comment on above: Performed By: #### 4 [id number] ####[facility] [address] [place], [place] [address] Glenn Gudino M.D. [id number] AUTO NRBC ABS COUNT 0.00 K/mcL Normal 0.00-0.00 [facility] Comment on above: Performed By: #### 4 [id number] ####[facility] [address] [place], [place] [address] Glenn Gudino M.D. [id number] Erythrocyte distribution width (RBC) [Ratio] 20.9 % High 11.6-14.8 [facility] Comment on above: Performed By: #### 4 5218 ####[facility] [address] [place], [place] [address] Glenn Gudino M.D. [id number] Hematocrit (Bld) [Volume fraction] 24.7 % Low 36.0-46.0 [facility] Comment on above: Performed By: #### 4 [id number] ####[facility] [address] [place], [place] [address] Glenn Gudino M.D. [id number] Hemoglobin (Bld) [Mass/Vol] 7.5 g/dL Low 12.0-16.0 [facility] Comment on above: Performed By: #### 4 5222 ####[facility] [address] [place], [place] [address] Glenn Gudino M.D. [id number] MCH (RBC) [Entitic mass] 29.1 pg Normal 26.0-34.0 [facility] Comment on above: Performed By: #### 4 [id number] ####[facility] [address] [place], [place] [address] Glenn Gudino M.D. [id number] MCV (RBC) [Entitic vol] 95.7 fL Normal 80.0-100.0 [facility] Comment on above: Performed By: #### 4 [id number] ####[facility] [address] [place] [address] Glenn Gudino M.D. [id number] MEAN CORPUSCULAR HEMOGLOBIN CONC 30.4 g/dL Low 31.0-37.0 [facility] Comment on above: Performed By: #### 4 [id number] ####[facility] [address] [place], [place] [address] Glenn Gudino M.D. [id number] Platelet mean volume (Bld) [Entitic vol] 9.4 fL Normal 9.4-12.4 [facility] Comment on above: Performed By: #### 4 [id number] ####[facility] [address] [place], [place] [address] Glenn Gudino M.D. [id number] Platelets (Bld) [#/Vol] 164 10*3/uL Normal 150-400 [facility] Comment on above: Performed By: #### 4 [id number] ####[facility] [address] [place], [place] [address] Glenn Gudino M.D. [id number] RBC (Bld) [#/Vol] 2.58 10*6/uL Low 4.00-5.20 [facility] Comment on above: Performed By: #### 4 5218 ####[facility] [address] [place], [place] [address] Glenn Gudino M.D. [id number] WBC (Bld) [#/Vol] 6.69 10*3/uL Normal 4.50-11.00 [facility] Comment on above: Performed By: #### 4 [id number] ####[facility] [address] [place] [address] 00577 Glenn Gudino M.D. [id number] BASIC METABOLIC PANELon 10- Anion gap [Moles/Vol] 15 mmol/L Normal 10-20 [facility] Comment on above: Order Comment: [facility] has implemented the eGFR calculation approach that does not have a coefficient for race that conforms to the NKF-ASN Task Force Recommendations. Performed By: #### 4 6124 ####[facility] [address] [place], [place] [address] Glenn Gudino M.D. [id number] Calcium [Mass/Vol] 8.5 mg/dL Normal 8.4-10.2 [facility] Comment on above: Order Comment: [facility] has implemented the eGFR calculation approach that does not have a coefficient for race that conforms to the NKF-ASN Task Force Recommendations. Performed By: #### 4 6124 ####[facility] [address] [place] [address] 41577 Glenn Gudino M.D. [id number] Chloride [Moles/Vol] 97 mmol/L Low 98-108 [facility] Comment on above: Order Comment: [facility] [facility] has implemented the eGFR calculation approach that does not have a coefficient for race that conforms to the NKF-ASN Task Force Recommendations. Performed By: #### 4 6124 ####[facility] [address] [place], [place] [address] Glenn Gudino M.D. [id number] Creatinine [Mass/Vol] 2.74 mg/dL High 0.60-1.10 [facility] Comment on above: Order Comment: [facility] has implemented the eGFR calculation approach that does not have a coefficient for race that conforms to the NKF-ASN Task Force Recommendations. Performed By: #### 4 6124 ####[facility] [address] [place], [place] [address] Glenn Gudino M.D. [id number] EGFR 19 mL/min/1.73 m2 Low >=60 [facility] Comment on above: Order Comment: [facility] has implemented the eGFR calculation approach that does not have a coefficient for race that conforms to the NKF-ASN Task Force Recommendations. Result Comment: Joi mated GFR was calculated using the 2020 CKD-EPI creatinine equation. Performed By: #### 4 6124 ####[facility] [address] [place], [place] [address] Glenn Gudino M.D. [id number] Glucose [Mass/Vol] 84 mg/dL Normal 65-99 [facility] Comment on above: Order Comment: [facility] has implemented the eGFR calculation approach that does not have a coefficient for race that conforms to the NKF-ASN Task Force Recommendations. Performed By: #### 4 6124 ####[facility] [address] [place], [place] [address] Glenn Gudino M.D. [id number] HCO3 (Bld) [Moles/Vol] 27 mmol/L Normal 21-32 [facility] Comment on above: Order Comment: [facility] has implemented the eGFR calculation approach that does not have a coefficient for race that conforms to the NKF-ASN Task Force Recommendations. Performed By: #### 4 6124 ####[facility] [address] [place], [place] [address] Glenn Gudino M.D. [id number] Potassium [Moles/Vol] 4.5 mmol/L Normal 3.5-5.1 [facility] Comment on above: Order Comment: [facility] has implemented the eGFR calculation approach that does not have a coefficient for race that conforms to the NKF-ASN Task Force Recommendations. Result Comment: Slig htly Hemolyzed Performed By: #### 4 6124 ####[facility] [address] [place] [address] Glenn Gudino M.D. [id number] Sodium [Moles/Vol] 134 mmol/L Low 135-145 [facility] Comment on above: Order Comment: [facility] has implemented the eGFR calculation approach that does not have a coefficient for race that conforms to the NKF-ASN Task Force Recommendations. Performed By: #### 4 6124 ####[facility] [address] [place] [address] Glenn Gudino M.D. [id number] Urea nitrogen [Mass/Vol] 32 mg/dL High 8-25 [facility] Comment on above: Order Comment: [facility] has implemented the eGFR calculation approach that does not have a coefficient for race that conforms to the NKF-ASN Task Force Recommendations. Performed By: #### 4 6124 ####[facility] [address] [place] [address] 26965 Glenn Gudino M.D. [id number] Urea nitrogen/Creatinine [Mass ratio] 11.7 mg/mg Normal 10.0-20.0 [facility] Comment on above: Order Comment: [facility] has implemented the eGFR calculation approach that does not have a coefficient for race that conforms to the NKF-ASN Task Force Recommendations. Performed By: #### 4 6124 ####[facility] [address] [place] [address] Glenn Gudino M.D. [id number] PHOSPHORUSon 03-16-2024 Phosphate [Mass/Vol] 3.9 mg/dL Normal 2.8-4.1 [facility] Comment on above: Performed By: #### 4 6299 ####[facility] [address] [place] [address] 82168 Glenn Gudino M.D. [id number] BASIC METABOLIC PANELon 02-26 Anion gap [Moles/Vol] 14 mmol/L Normal 10-20 [facility] Comment on above: Order Comment: [facility] has implemented the eGFR calculation approach that does not have a coefficient for race that conforms to the NKF-ASN Task Force Recommendations. Performed By: #### 4 6124 ####[facility] [address] [place] [address] Glenn Gudino M.D. [id number] Calcium [Mass/Vol] 8.3 mg/dL Low 8.4-10.2 [facility] Comment on above: Order Comment: [facility] has implemented the eGFR calculation approach that does not have a coefficient for race that conforms to the NKF-ASN Task Force Recommendations. Performed By: #### 4 6124 ####[facility] [address] [place], [place] [address] Glenn Gudino M.D. [id number] Chloride [Moles/Vol] 96 mmol/L Low 98-108 [facility] Comment on above: Order Comment: [facility] has implemented the eGFR calculation approach that does not have a coefficient for race that conforms to the NKF-ASN Task Force Recommendations. Performed By: #### 4 6124 ####[facility] [address] [place] [address] Glenn Gudino M.D. [id number] Creatinine [Mass/Vol] 2.29 mg/dL High 0.60-1.10 [facility] Comment on above: Order Comment: [facility] has implemented the eGFR calculation approach that does not have a coefficient for race that conforms to the NKF-ASN Task Force Recommendations. Performed By: #### 4 6124 ####[facility] [address] [place] [address] Glenn Gudino M.D. [id number] EGFR 24 mL/min/1.73 m2 Low >=60 [facility] Comment on above: Order Comment: [facility] has implemented the eGFR calculation approach that does not have a coefficient for race that conforms to the NKF-ASN Task Force Recommendations. Result Comment: Joi mated GFR was calculated using the 2020 CKD-EPI creatinine equation. Performed By: #### 4 6124 ####[facility] [address] [place], [place] [address] Glenn Gudino M.D. [id number] Glucose [Mass/Vol] 74 mg/dL Normal 65-99 [facility] Comment on above: Order Comment: [facility] has implemented the eGFR calculation approach that does not have a coefficient for race that conforms to the NKF-ASN Task Force Recommendations. Performed By: #### 4 6124 ####[facility] [address] [place], [place] [address] Glenn Gudino M.D. [id number] HCO3 (Bld) [Moles/Vol] 27 mmol/L Normal 21-32 [facility] Comment on above: Order Comment: [facility] has implemented the eGFR calculation approach that does not have a coefficient for race that conforms to the NKF-ASN Task Force Recommendations. Performed By: #### 4 6124 ####[facility] [address] [place] [address] Glenn Gudino M.D. [id number] Potassium [Moles/Vol] 4.4 mmol/L Normal 3.5-5.1 [facility] Comment on above: Order Comment: [facility] has implemented the eGFR calculation approach that does not have a coefficient for race that conforms to the NKF-ASN Task Force Recommendations. Result Comment: Slig htly Hemolyzed Performed By: #### 4 6124 ####[facility] [address] [place] [address] Glenn Gudino M.D. [id number] Sodium [Moles/Vol] 133 mmol/L Low 135-145 [facility] Comment on above: Order Comment: [facility] has implemented the eGFR calculation approach that does not have a coefficient for race that conforms to the NKF-ASN Task Force Recommendations. Performed By: #### 4 6124 ####[facility] [address] [place], [place] [address] Glenn Gudino M.D. [id number] Urea nitrogen [Mass/Vol] 23 mg/dL Normal 8-25 [facility] Comment on above: Order Comment: [facility] has implemented the eGFR calculation approach that does not have a coefficient for race that conforms to the NKF-ASN Task Force Recommendations. Performed By: #### 4 6124 ####[facility] [address] [place], [place] [address] Glenn Gudino M.D. [id number] Urea nitrogen/Creatinine [Mass ratio] 10.0 mg/mg Normal 10.0-20.0 [facility] Comment on above: Order Comment: [facility] has implemented the eGFR calculation approach that does not have a coefficient for race that conforms to the NKF-ASN Task Force Recommendations. Performed By: #### 4 6124 ####[facility] [address] [place], [place] [address] Glenn Gudino M.D. [id number] CBCon 03-15-2024 AUTO NRBC 0.0 % Normal [facility] Comment on above: Performed By: #### 4 [id number] ####[facility] [address] [place] [address] 347[address] Glenn Gudino M.D. [id number] AUTO NRBC ABS COUNT 0.00 K/mcL Normal 0.00-0.00 [facility] Comment on above: Performed By: #### 4 [id number] ####[facility] [address] [place] [address] 16998 Glenn Gudino M.D. [id number] Erythrocyte distribution width (RBC) [Ratio] 20.6 % High 11.6-14.8 [facility] Comment on above: Performed By: #### 4 [id number] ####[facility] [address] [place], [place] [address]arma Gudino M.D. [id number] Hematocrit (Bld) [Volume fraction] 27.4 % Low 36.0-46.0 [facility] Comment on above: Performed By: #### 4 [id number] ####[facility] [address] [place] [address] Glenn Gudino M.D. [id number] Hemoglobin (Bld) [Mass/Vol] 8.7 g/dL Low 12.0-16.0 [facility] Comment on above: Performed By: #### 4 [id number] ####[facility] [address] [place] [address] Glenn Gudino M.D. [id number] MCH (RBC) [Entitic mass] 29.3 pg Normal 26.0-34.0 [facility] Comment on above: Performed By: #### 4 [id number] ####[facility] [address] [place], [place] [address] Glenn Gudino M.D. [id number] MCV (RBC) [Entitic vol] 92.3 fL Normal 80.0-100.0 [facility] Comment on above: Result Comment: Resu lts checked Performed By: #### 4 [id number] ####[facility] [address] [place], [place] [address] Glenn Gudino M.D. [id number] MEAN CORPUSCULAR HEMOGLOBIN CONC 31.8 g/dL Normal 31.0-37.0 [facility] Comment on above: Performed By: #### 4 5243 ####[facility] [address] [place], [place] [address] Glenn Gudino M.D. [id number] Platelet mean volume (Bld) [Entitic vol] 10.0 fL Normal 9.4-12.4 [facility] Comment on above: Performed By: #### 4 [id number] ####[facility] [address] [place] [address] 91733 Glenn Gudino M.D. [id number] Platelets (Bld) [#/Vol] 196 10*3/uL Normal 150-400 [facility] Comment on above: Performed By: #### 4 [id number] ####[facility] [address] [place] [address] Glenn Gudino M.D. [id number] RBC (Bld) [#/Vol] 2.97 10*6/uL Low 4.00-5.20 [facility] Comment on above: Performed By: #### 4 [id number] ####[facility] [address] [place], [place] [address] Glenn Gudino M.D. [id number] WBC (Bld) [#/Vol] 7.75 10*3/uL Normal 4.50-11.00 [facility] Comment on above: Performed By: #### 4 [id number] ####[facility] [address] [place] [address] 36549 Glenn Gudino M.D. [id number] MAGNESIUM LEVELon 03-15-2024 Magnesium [Mass/Vol] 1.7 mg/dL Normal 1.6-2.4 [facility] Comment on above: Performed By: #### 4 6109 ####[facility] [address] [place] [address] 29066 Glenn Gudino M.D. [id number] XR CHEST PA/APon 03-15-2024 XR CHEST PA/AP Normal [facility] Comment on above: Order Comment: Injur y/Trauma or Illness?:Illness/OtherHow long have you had these symptoms (acute/chronic)?:AcuteReason for exam?:follow upHistory of cancer?:uSurgeries, chemotherapy, or radiation?:uType of Exam?:Subsequent/Follow-upAdditional signs and symptoms?:. BASIC METABOLIC PANELon 10- Anion gap [Moles/Vol] 14 mmol/L Normal 10-20 [facility] Comment on above: Order Comment: [facility] has implemented the eGFR calculation approach that does not have a coefficient for race that conforms to the NKF-ASN Task Force Recommendations. Performed By: #### 4 6124 ####[facility] [address] [place] [address] 94605 Glenn Gudino M.D. [id number] Calcium [Mass/Vol] 8.4 mg/dL Normal 8.4-10.2 [facility] Comment on above: Order Comment: [facility] has implemented the eGFR calculation approach that does not have a coefficient for race that conforms to the NKF-ASN Task Force Recommendations. Performed By: #### 4 6124 ####[facility] [address] [place], [place] [address] Glenn Gudino M.D. [id number] Chloride [Moles/Vol] 99 mmol/L Normal 98-108 [facility] Comment on above: Order Comment: [facility] has implemented the eGFR calculation approach that does not have a coefficient for race that conforms to the NKF-ASN Task Force Recommendations. Performed By: #### 4 6124 ####[facility] [address] [place], [place] [address] Glenn Gudino M.D. [id number] Creatinine [Mass/Vol] 2.68 mg/dL High 0.60-1.10 [facility] Comment on above: Order Comment: [facility] has implemented the eGFR calculation approach that does not have a coefficient for race that conforms to the NKF-ASN Task Force Recommendations. Performed By: #### 4 6124 ####[facility] [address] [place] [address] Glenn Gudino M.D. [id number] EGFR 20 mL/min/1.73 m2 Low >=60 [facility] Comment on above: Order Comment: [facility] has implemented the eGFR calculation approach that does not have a coefficient for race that conforms to the NKF-ASN Task Force Recommendations. Result Comment: Joi mated GFR was calculated using the 2020 CKD-EPI creatinine equation. Performed By: #### 4 6124 ####[facility] [address] [place] [address] 61790 Glenn Gudino M.D. [id number] Glucose [Mass/Vol] 68 mg/dL Normal 65-99 [facility] Comment on above: Order Comment: [facility] has implemented the eGFR calculation approach that does not have a coefficient for race that conforms to the NKF-ASN Task Force Recommendations. Performed By: #### 4 6124 ####[facility] [address] [place], [place] [address] Glenn Gudino M.D. [id number] HCO3 (Bld) [Moles/Vol] 26 mmol/L Normal 21-32 [facility] Comment on above: Order Comment: [facility] has implemented the eGFR calculation approach that does not have a coefficient for race that conforms to the NKF-ASN Task Force Recommendations. Performed By: #### 4 6124 ####[facility] [address] [place] [address] 48580 Glenn Gudino M.D. [id number] Potassium [Moles/Vol] 4.9 mmol/L Normal 3.5-5.1 [facility] Comment on above: Order Comment: [facility] has implemented the eGFR calculation approach that does not have a coefficient for race that conforms to the NKF-ASN Task Force Recommendations. Result Comment: Slig htly Hemolyzed Performed By: #### 4 6124 ####[facility] [address] [place] [address] 36066 Glenn Gudino M.D. [id number] Sodium [Moles/Vol] 134 mmol/L Low 135-145 [facility] Comment on above: Order Comment: [facility] has implemented the eGFR calculation approach that does not have a coefficient for race that conforms to the NKF-ASN Task Force Recommendations. Performed By: #### 4 6124 ####[facility] [address] [place], [place] [address] Glenn Gudino M.D. [id number] Urea nitrogen [Mass/Vol] 23 mg/dL Normal 8-25 [facility] Comment on above: Order Comment: [facility] has implemented the eGFR calculation approach that does not have a coefficient for race that conforms to the NKF-ASN Task Force Recommendations. Performed By: #### 4 6124 ####[facility] [address] [place], [place] [address] Glenn Gudino M.D. [id number] Urea nitrogen/Creatinine [Mass ratio] 8.6 mg/mg Low 10.0-20.0 [facility] Comment on above: Order Comment: [facility] has implemented the eGFR calculation approach that does not have a coefficient for race that conforms to the NKF-ASN Task Force Recommendations. Performed By: #### 4 6124 ####[facility] [address] [place], [place] [address] Glenn Gudino M.D. [id number] CBCon 03-14-2024 AUTO NRBC 0.0 % Normal [facility] Comment on above: Performed By: #### 4 [id number] ####[facility] [address] [place] [address] 59906 Glenn Gudino M.D. [id number] AUTO NRBC ABS COUNT 0.00 K/mcL Normal 0.00-0.00 [facility] Comment on above: Performed By: #### 4 [id number] ####[facility] [address] [place], [place] [address] Glenn Gudino M.D. [id number] Erythrocyte distribution width (RBC) [Ratio] 19.3 % High 11.6-14.8 [facility] Comment on above: Performed By: #### 4 [id number] ####[facility] [address] [place] [address] Glenn Gudino M.D. [id number] Hematocrit (Bld) [Volume fraction] 23.0 % Low 36.0-46.0 [facility] Comment on above: Performed By: #### 4 [id number] ####[facility] [address] [place] [address] Glenn Gudino M.D. [id number] Hemoglobin (Bld) [Mass/Vol] 6.7 g/dL Off scale low 12.0-16.0 [facility] Comment on above: Result Comment: Resu lts called and read back verified by:.[email or web address] to [id number] Performed By: #### 4 [id number] ####[facility] [address] [place], [place] [address] Glenn Gudino M.D. [id number] MCH (RBC) [Entitic mass] 28.5 pg Normal 26.0-34.0 [facility] Comment on above: Performed By: #### 4 [id number] ####[facility] [address] [place], [place] [address] Glenn Gudino M.D. [id number] MCV (RBC) [Entitic vol] 97.9 fL Normal 80.0-100.0 [facility] Comment on above: Performed By: #### 4 [id number] ####[facility] [address] [place], [place] [address] Glenn Gudino M.D. [id number] MEAN CORPUSCULAR HEMOGLOBIN CONC 29.1 g/dL Low 31.0-37.0 [facility] Comment on above: Performed By: #### 4 [id number] ####[facility] [address] [place] [address] Glenn Gudino M.D. [id number] Platelet mean volume (Bld) [Entitic vol] 9.4 fL Normal 9.4-12.4 [facility] Comment on above: Performed By: #### 4 [id number] ####[facility] [address] [place], [place] [address] Glenn Gudino M.D. [id number] Platelets (Bld) [#/Vol] 181 10*3/uL Normal 150-400 [facility] Comment on above: Performed By: #### 4 [id number] ####[facility] [address] [place], [place] [address] Glenn Gudino M.D. [id number] RBC (Bld) [#/Vol] 2.35 10*6/uL Low 4.00-5.20 [facility] Comment on above: Performed By: #### 4 [id number] ####[facility] [address] [place], [place] [address] Glenn Gudino M.D. [id number] WBC (Bld) [#/Vol] 6.70 10*3/uL Normal 4.50-11.00 [facility] Comment on above: Performed By: #### 4 [id number] ####[facility] [address] [place], [place] [address]Karma Gudino M.D. [id number] HEMOGLOBIN AND HEMATOCRITon 03-14-2024 Hematocrit (Bld) [Volume fraction] 27.8 % Low 36.0-46.0 [facility] Comment on above: Performed By: #### 4 6909 ####[facility] [address] [place] [address]3556 Glenn Gudino M.D. [id number] Hemoglobin (Bld) [Mass/Vol] 8.5 g/dL Low 12.0-16.0 [facility] Comment on above: Result Comment: Resu lts checked Performed By: #### 4 6909 ####[facility] [address] [place], [place] [address] Glenn Gudino M.D. [id number] MAGNESIUM LEVELon 03-14-2024 Magnesium [Mass/Vol] 1.8 mg/dL Normal 1.6-2.4 [facility] Comment on above: Performed By: #### 4 6109 ####[facility] [address] [place] [address] Glenn Gudino M.D. [id number] NT PRO BNPon 03-14-2024 Natriuretic peptide B (Bld) [Mass/Vol] 77422 pg/mL High 0-300 [facility] Comment on above: Order Comment: Pride Study Cut-offsRule In:< /= 50 Years >450 pg/mL51 Years - 75 Years >900 pg/mL76 Years - 99 Years >1800 pg/mLRule Out:All patients <300 pg/mL Performed By: #### 4 7395 ####[facility] [address] [place], [place] [address] Glenn Gudino M.D. [id number] WOUND AEROBIC AND ANAEROBIC CULTUREon 03-14-2024 WOUND AEROBIC AND ANAEROBIC CULTURE CULTURE No Anaerobic Growth after 5 days Heavy Growth Normal Enteric Cherelle GRAM STAIN RESULT Moderate WBC Few Gram Positive Cocci Few Gram Negative Bacilli Normal [facility] Comment on above: Performed By: #### 4 4287 ####[facility] [address] [place], [place] [address] Glenn Gudino M.D. [id number] WOUND AFB CULTUREon 03-14-20 24 WOUND AFB CULTURE AFB CULTURE No Growth of Acid Fast Bacilli after 8 Weeks AFB STAIN (2018) No Acid Fast Bacilli Seen Normal [facility] Comment on above: Performed By: #### 4 4286 ####[facility] [address] [place], [place] [address] Glenn Gudino M.D. [id number] WOUND FUNGUS CULTUREon 03-14 WOUND FUNGUS CULTURE FUNGUS CULTURE No Fungus Isolated At 4 Weeks FUNGAL SMEAR No Fungal or Yeast Elements Normal [facility] Comment on above: Performed By: #### 4 4288 ####[facility] [address] [place] [address] Glenn Gudino M.D. [id number] BASIC METABOLIC PANELon 10-1 Anion gap [Moles/Vol] 11 mmol/L Normal 10-20 [facility] Comment on above: Order Comment: [facility] has implemented the eGFR calculation approach that does not have a coefficient for race that conforms to the NKF-ASN Task Force Recommendations. Performed By: #### 4 6124 ####[facility] [address] [place] [address] 33155 Glenn Gudino M.D. [id number] Calcium [Mass/Vol] 8.4 mg/dL Normal 8.4-10.2 [facility] Comment on above: Order Comment: [facility] has implemented the eGFR calculation approach that does not have a coefficient for race that conforms to the NKF-ASN Task Force Recommendations. Performed By: #### 4 6124 ####[facility] [address] [place] [address] 69285 Glenn Gudino M.D. [id number] Chloride [Moles/Vol] 98 mmol/L Normal 98-108 [facility] Comment on above: Order Comment: [facility] has implemented the eGFR calculation approach that does not have a coefficient for race that conforms to the NKF-ASN Task Force Recommendations. Performed By: #### 4 6124 ####[facility] [address] [place] [address] 70391 Glenn uGdino M.D. [id number] Creatinine [Mass/Vol] 2.18 mg/dL High 0.60-1.10 [facility] Comment on above: Order Comment: [facility] has implemented the eGFR calculation approach that does not have a coefficient for race that conforms to the NKF-ASN Task Force Recommendations. Performed By: #### 4 6124 ####[facility] [address] [place] [address]60 Glenn Gudino M.D. [id number] EGFR 25 mL/min/1.73 m2 Low >=60 [facility] Comment on above: Order Comment: [facility] has implemented the eGFR calculation approach that does not have a coefficient for race that conforms to the NKF-ASN Task Force Recommendations. Result Comment: Joi mated GFR was calculated using the 2020 CKD-EPI creatinine equation. Performed By: #### 4 6124 ####[facility] [address] [place] [address] 24615 Glenn Gudino M.D. [id number] Glucose [Mass/Vol] 79 mg/dL Normal 65-99 [facility] Comment on above: Order Comment: [facility] has implemented the eGFR calculation approach that does not have a coefficient for race that conforms to the NKF-ASN Task Force Recommendations. Performed By: #### 4 6124 ####[facility] [address] [place] [address] 29939 Glenn Gudino M.D. [id number] HCO3 (Bld) [Moles/Vol] 29 mmol/L Normal 21-32 [facility] Comment on above: Order Comment: [facility] has implemented the eGFR calculation approach that does not have a coefficient for race that conforms to the NKF-ASN Task Force Recommendations. Performed By: #### 4 6124 ####[facility] [address] [place] [address] Glenn Gudnio M.D. [id number] Potassium [Moles/Vol] 4.3 mmol/L Normal 3.5-5.1 [facility] Comment on above: Order Comment: [facility] has implemented the eGFR calculation approach that does not have a coefficient for race that conforms to the NKF-ASN Task Force Recommendations. Performed By: #### 4 6124 ####[facility] [address] [place] [address] 62669 Glenn Gudino M.D. [id number] Sodium [Moles/Vol] 134 mmol/L Low 135-145 [facility] Comment on above: Order Comment: [facility] has implemented the eGFR calculation approach that does not have a coefficient for race that conforms to the NKF-ASN Task Force Recommendations. Performed By: #### 4 6124 ####[facility] [address] [place], [place] [id number] Glenn Gudino M.D. [id number] Urea nitrogen [Mass/Vol] 16 mg/dL Normal 8-25 [facility] Comment on above: Order Comment: [facility] has implemented the eGFR calculation approach that does not have a coefficient for race that conforms to the NKF-ASN Task Force Recommendations. Performed By: #### 4 6124 ####[facility] [address] [place], [place] [address] Glenn Gudino M.D. [id number] Urea nitrogen/Creatinine [Mass ratio] 7.3 mg/mg Low 10.0-20.0 [facility] Comment on above: Order Comment: [facility] has implemented the eGFR calculation approach that does not have a coefficient for race that conforms to the NKF-ASN Task Force Recommendations. Performed By: #### 4 6124 ####[facility] [address] [place], [place] [id number] Glenn Gudino M.D. [id number] CALCIUM, IONIZEDon CALCIUM IONIZED 4.6 mg/dL Normal 4.5-5.3 [facility] Comment on above: Performed By: #### 4 5190 ####[facility] [address] [place] [address] 08120 Glenn Gudino M.D. [id number] CBCon 03-13-2024 AUTO NRBC 0.0 % Normal [facility] Comment on above: Performed By: #### 4 [id number] ####[facility] [address] [place], [place] [address] Glenn Gudino M.D. [id number] AUTO NRBC ABS COUNT 0.00 K/mcL Normal 0.00-0.00 [facility] Comment on above: Performed By: #### 4 [id number] ####[facility] [address] [place] [address] Glenn Gudino M.D. [id number] Erythrocyte distribution width (RBC) [Ratio] 18.7 % High 11.6-14.8 [facility] Comment on above: Performed By: #### 4 [id number] ####[facility] [address] [place] [address] Glenn Gudino M.D. [id number] Hematocrit (Bld) [Volume fraction] 22.1 % Low 36.0-46.0 [facility] Comment on above: Performed By: #### 4 [id number] ####[facility] [address] [place], [place] [address] Glenn Gudino M.D. [id number] Hemoglobin (Bld) [Mass/Vol] 7.0 g/dL Low 12.0-16.0 [facility] Comment on above: Performed By: #### 4 [id number] ####[facility] [address] [place], [place] [address] Glenn Gudino M.D. [id number] MCH (RBC) [Entitic mass] 30.2 pg Normal 26.0-34.0 [facility] Comment on above: Performed By: #### 4 [id number] ####[facility] [address] [place], [place] [address] Glenn Gudino M.D. [id number] MCV (RBC) [Entitic vol] 95.3 fL Normal 80.0-100.0 [facility] Comment on above: Performed By: #### 4 1518 ####[facility] [address] [place] [address] 38632 Glenn Guidno M.D. [id number] MEAN CORPUSCULAR HEMOGLOBIN CONC 31.7 g/dL Normal 31.0-37.0 [facility] Comment on above: Performed By: #### 4 [id number] ####[facility] [address] [place] [address] 80714 Glenn Gudino M.D. [id number] Platelet mean volume (Bld) [Entitic vol] 9.7 fL Normal 9.4-12.4 [facility] Comment on above: Performed By: #### 4 [id number] ####[facility] [address] [place], [place] [address] Glenn Gudino M.D. [id number] Platelets (Bld) [#/Vol] 187 10*3/uL Normal 150-400 [facility] Comment on above: Performed By: #### 4 [id number] ####[facility] [address] [place] [address]1993 Glenn Gudino M.D. [id number] RBC (Bld) [#/Vol] 2.32 10*6/uL Low 4.00-5.20 [facility] Comment on above: Performed By: #### 4 [id number] ####[facility] [address] [place] [address] 32837 Glenn Gudino M.D. [id number] WBC (Bld) [#/Vol] 5.89 10*3/uL Normal 4.50-11.00 [facility] Comment on above: Performed By: #### 4 [id number] ####[facility] [address] [place] [address] 25086 Glenn Gudino M.D. [id number] CONSULTon 03-13-2024 CONSULT Normal [facility] HEPATITIS B SURFACE ANTIGENo n 03-13-2024 HEPATITIS B SURFACE ANTIGEN Positive Abnormal Negative [facility] Comment on above: Order Comment: Test performed using Adele ANNALISE immunoassay system Performed By: #### 4 4081 ####[facility] [address] [place], [place] [address] Glenn Gudino M.D. [id number] MAGNESIUM LEVELon 03-13-2024 Magnesium [Mass/Vol] 1.6 mg/dL Normal 1.6-2.4 [facility] Comment on above: Performed By: #### 4 6109 ####[facility] [address] [place] [address] Glenn Gudino M.D. [id number] PHOSPHORUSon 03-13-2024 Phosphate [Mass/Vol] 2.8 mg/dL Normal 2.8-4.1 [facility] Comment on above: Performed By: #### 4 6299 ####[facility] [address] [place], [place] [address] Glenn Gudino M.D. [id number] PROTEIN / CREATININE RATIO, URINEon 03-13-2024 CREATININE,UR 62.4 mg/dL Normal [facility] Comment on above: Performed By: #### 4 7136 ####[facility] [address] [place] [address] 81430 Glenn Gudino M.D. [id number] Protein (U) [Mass/Vol] 225.4 mg/dL Normal [facility] Comment on above: Performed By: #### 4 7136 ####[facility] [address] [place] [address] 21662 Glenn Gudino M.D. [id number] PROTEIN CREATININE RATIO 3.6 ratio High 0.0-0.2 [facility] Comment on above: Performed By: #### 4 7136 ####[facility] [address] [place], [place] [address] Glenn Gudino M.D. [id number] URINALYSISon 03-13-2024 AMORPHOUS CRYSTALS Many Abnormal None Seen , Rare [facility] Comment on above: Order Comment: Micro scopic examination is performed on all urinalysis samples and only positive findings are reported. The test for blood on the chemical analytic portion of urinalysis may also be positive due to hemoglobinuria and myoglobinuria and if red blood cells are present they are quantified by microscopic examination. Performed By: #### 4 6625 ####[facility] [address] [place] [address] Glenn Gudino M.D. [id number] BACTERIA, URINE Rare Abnormal None Seen [facility] Comment on above: Order Comment: Micro scopic examination is performed on all urinalysis samples and only positive findings are reported. The test for blood on the chemical analytic portion of urinalysis may also be positive due to hemoglobinuria and myoglobinuria and if red blood cells are present they are quantified by microscopic examination. Performed By: #### 4 6625 ####[facility] [address] [place] [address] Glenn Gudino M.D. [id number] BILIRUBIN, URINE Negative Normal Negative [facility] Comment on above: Order Comment: Micro scopic examination is performed on all urinalysis samples and only positive findings are reported. The test for blood on the chemical analytic portion of urinalysis may also be positive due to hemoglobinuria and myoglobinuria and if red blood cells are present they are quantified by microscopic examination. Performed By: #### 4 6625 ####[facility] [address] [place] [address] Glenn Gudino M.D. [id number] BLOOD, URINE Small Abnormal Negative [facility] Comment on above: Order Comment: Micro scopic examination is performed on all urinalysis samples and only positive findings are reported. The test for blood on the chemical analytic portion of urinalysis may also be positive due to hemoglobinuria and myoglobinuria and if red blood cells are present they are quantified by microscopic examination. Performed By: #### 4 6625 ####[facility] [address] [place] [address] Glenn Gudino M.D. [id number] CALCIUM OXALATE CRYSTALS Many Abnormal None Seen [facility] Comment on above: Order Comment: Micro scopic examination is performed on all urinalysis samples and only positive findings are reported. The test for blood on the chemical analytic portion of urinalysis may also be positive due to hemoglobinuria and myoglobinuria and if red blood cells are present they are quantified by microscopic examination. Performed By: #### 4 6625 ####[facility] [address] [place] [address] Glenn Gudino M.D. [id number] Clarity (U) Cloudy Abnormal Clear [facility] Comment on above: Order Comment: Micro scopic examination is performed on all urinalysis samples and only positive findings are reported. The test for blood on the chemical analytic portion of urinalysis may also be positive due to hemoglobinuria and myoglobinuria and if red blood cells are present they are quantified by microscopic examination. Performed By: #### 4 6625 ####[facility] [address] [place] [address] Glenn Gudino M.D. [id number] Color (U) Yellow Normal Colorless, Yellow [facility] Comment on above: Order Comment: Micro scopic examination is performed on all urinalysis samples and only positive findings are reported. The test for blood on the chemical analytic portion of urinalysis may also be positive due to hemoglobinuria and myoglobinuria and if red blood cells are present they are quantified by microscopic examination. Performed By: #### 4 6625 ####[facility] [address] [place] [address] Glenn Gudino M.D. [id number] Glucose Ql (U) Negative Normal Negative [facility] Comment on above: Order Comment: Micro scopic examination is performed on all urinalysis samples and only positive findings are reported. The test for blood on the chemical analytic portion of urinalysis may also be positive due to hemoglobinuria and myoglobinuria and if red blood cells are present they are quantified by microscopic examination. Performed By: #### 4 6625 ####[facility] [address] [place] [address] 20091 Glenn Gudino M.D. [id number] Ketones Ql (U) Negative Normal Negative [facility] Comment on above: Order Comment: Micro scopic examination is performed on all urinalysis samples and only positive findings are reported. The test for blood on the chemical analytic portion of urinalysis may also be positive due to hemoglobinuria and myoglobinuria and if red blood cells are present they are quantified by microscopic examination. Performed By: #### 4 6625 ####[facility] [address] [place], [place] [address] Glenn Gudino M.D. [id number] Leukocyte esterase Test strip Ql (U) Large Abnormal Negative [facility] Comment on above: Order Comment: Micro scopic examination is performed on all urinalysis samples and only positive findings are reported. The test for blood on the chemical analytic portion of urinalysis may also be positive due to hemoglobinuria and myoglobinuria and if red blood cells are present they are quantified by microscopic examination. Performed By: #### 4 6625 ####[facility] [address] [place] [address] 67217 Glenn Gudino M.D. [id number] MUCUS, URINE Many Abnormal None Seen, Rare [facility] Comment on above: Order Comment: Micro scopic examination is performed on all urinalysis samples and only positive findings are reported. The test for blood on the chemical analytic portion of urinalysis may also be positive due to hemoglobinuria and myoglobinuria and if red blood cells are present they are quantified by microscopic examination. Performed By: #### 4 6625 ####[facility] [address] [place] [address] 45404 Glenn Gudino M.D. [id number] NITRITE, URINE Negative Normal Negative [facility] Comment on above: Order Comment: Micro scopic examination is performed on all urinalysis samples and only positive findings are reported. The test for blood on the chemical analytic portion of urinalysis may also be positive due to hemoglobinuria and myoglobinuria and if red blood cells are present they are quantified by microscopic examination. Performed By: #### 4 6625 ####[facility] [address] [place] [address] Glenn Gudino M.D. [id number] pH (U) 8.5 [pH] High 5.0-7.0 [facility] Comment on above: Order Comment: Micro scopic examination is performed on all urinalysis samples and only positive findings are reported. The test for blood on the chemical analytic portion of urinalysis may also be positive due to hemoglobinuria and myoglobinuria and if red blood cells are present they are quantified by microscopic examination. Performed By: #### 4 6625 ####[facility] [address] [place] [address] Glenn Gudino M.D. [id number] PROTEIN, URINE >=300 Abnormal Negative [facility] Comment on above: Order Comment: Micro scopic examination is performed on all urinalysis samples and only positive findings are reported. The test for blood on the chemical analytic portion of urinalysis may also be positive due to hemoglobinuria and myoglobinuria and if red blood cells are present they are quantified by microscopic examination. Performed By: #### 4 6625 ####[facility] [address] [place] [address] Glenn Gudino M.D. [id number] RBC LM.HPF (Urine sed) [#/Area] 2 /[HPF] Normal 0-3 [facility] Comment on above: Order Comment: Micro scopic examination is performed on all urinalysis samples and only positive findings are reported. The test for blood on the chemical analytic portion of urinalysis may also be positive due to hemoglobinuria and myoglobinuria and if red blood cells are present they are quantified by microscopic examination. Performed By: #### 4 6625 ####[facility] [address] [place] [address] Glenn Gudino M.D. [id number] Specific gravity (U) [Rel density] 1.014 Normal 1.005-1.02 5 [facility] Comment on above: Order Comment: Micro scopic examination is performed on all urinalysis samples and only positive findings are reported. The test for blood on the chemical analytic portion of urinalysis may also be positive due to hemoglobinuria and myoglobinuria and if red blood cells are present they are quantified by microscopic examination. Performed By: #### 4 6625 ####[facility] [address] [place] [address] Glenn Gudino M.D. [id number] SQUAMOUS EPITHELIAL 1 /hpf Normal 0-4 [facility] Comment on above: Order Comment: Micro scopic examination is performed on all urinalysis samples and only positive findings are reported. The test for blood on the chemical analytic portion of urinalysis may also be positive due to hemoglobinuria and myoglobinuria and if red blood cells are present they are quantified by microscopic examination. Performed By: #### 4 6625 ####[facility] [address] [place] [address] Glenn Gudino M.D. [id number] UROBILINOGEN, URINE <2.0 Normal <2.0 [facility] Comment on above: Order Comment: Micro scopic examination is performed on all urinalysis samples and only positive findings are reported. The test for blood on the chemical analytic portion of urinalysis may also be positive due to hemoglobinuria and myoglobinuria and if red blood cells are present they are quantified by microscopic examination. Performed By: #### 4 6625 ####[facility] [address] [place] [address] Glenn Gudino M.D. [id number] WBC CLUMPS, URINE Rare Abnormal None Seen [facility] Comment on above: Order Comment: Micro scopic examination is performed on all urinalysis samples and only positive findings are reported. The test for blood on the chemical analytic portion of urinalysis may also be positive due to hemoglobinuria and myoglobinuria and if red blood cells are present they are quantified by microscopic examination. Performed By: #### 4 6625 ####[facility] [address] [place] [address] Glenn Gudino M.D. [id number] WBC LM.HPF (Urine sed) [#/Area] 23 /[HPF] High 0-5 [facility] Comment on above: Order Comment: Micro scopic examination is performed on all urinalysis samples and only positive findings are reported. The test for blood on the chemical analytic portion of urinalysis may also be positive due to hemoglobinuria and myoglobinuria and if red blood cells are present they are quantified by microscopic examination. Performed By: #### 4 6625 ####[facility] [address] [place] [address] Glenn Gudino M.D. [id number] US DOPPLER SEGMENTAL ARTERIA L LEGS BILATERALon 03-13-2024 US DOPPLER SEGMENTAL ARTERIAL LEGS BILATERAL Normal [facility] ANTIBODY IDENTIFICATION-Con 03-12-2024 ANTIBODY IDENTIFICATION-C Normal [facility] Comment on above: Performed By: #### 4 6427_Anti-C ####PENDING SALE TO [facility] [address] [place] [address] Nurys Oneill MD [id number] [facility] B12/FOLATEon 03-12-2024 Cobalamin (Vitamin B12) [Mass/Vol] 536 pg/mL Normal 232-1245 [facility] Comment on above: Performed By: #### 4 6967 ####[facility] [address] [place] [address] Glenn Gudino M.D. [id number] FOLATE 19.1 ng/mL High 3.1-17.5 [facility] Comment on above: Result Comment: Defi cient <2.2Borderline 2.2 - 3.0Excessive >17.5 Performed By: #### 4 6917 ####[facility] [address] [place] [address] Glenn Gudino M.D. [id number] BASIC METABOLIC PANELon 10- Anion gap [Moles/Vol] 11 mmol/L Normal 10-20 [facility] Comment on above: Order Comment: [facility] has implemented the eGFR calculation approach that does not have a coefficient for race that conforms to the NKF-ASN Task Force Recommendations. Performed By: #### 4 6124 ####[facility] [address] [place] [address] 46359 Glenn Gudino M.D. [id number] Calcium [Mass/Vol] 8.3 mg/dL Low 8.4-10.2 [facility] Comment on above: Order Comment: [facility] has implemented the eGFR calculation approach that does not have a coefficient for race that conforms to the NKF-ASN Task Force Recommendations. Performed By: #### 4 6124 ####[facility] [address] [place], [place] [address] Glenn Gudino M.D. [id number] Chloride [Moles/Vol] 98 mmol/L Normal 98-108 [facility] Comment on above: Order Comment: [facility] has implemented the eGFR calculation approach that does not have a coefficient for race that conforms to the NKF-ASN Task Force Recommendations. Performed By: #### 4 6124 ####[facility] [address] [place] [address] 49434 Glenn Gudino M.D. [id number] Creatinine [Mass/Vol] 1.88 mg/dL High 0.60-1.10 [facility] Comment on above: Order Comment: [facility] has implemented the eGFR calculation approach that does not have a coefficient for race that conforms to the NKF-ASN Task Force Recommendations. Performed By: #### 4 6124 ####[facility] [address] [place] [address] 30348 Glenn Gudino M.D. [id number] EGFR 30 mL/min/1.73 m2 Low >=60 [facility] Comment on above: Order Comment: [facility] has implemented the eGFR calculation approach that does not have a coefficient for race that conforms to the NKF-ASN Task Force Recommendations. Result Comment: Joi mated GFR was calculated using the 2020 CKD-EPI creatinine equation. Performed By: #### 4 6124 ####[facility] [address] [place] [address] 10684 Glenn Gudino M.D. [id number] Glucose [Mass/Vol] 75 mg/dL Normal 65-99 [facility] Comment on above: Order Comment: [facility] has implemented the eGFR calculation approach that does not have a coefficient for race that conforms to the NKF-ASN Task Force Recommendations. Performed By: #### 4 6124 ####[facility] [address] [place] [address] 86170 Glenn Gudino M.D. [id number] HCO3 (Bld) [Moles/Vol] 32 mmol/L Normal 21-32 [facility] Comment on above: Order Comment: [facility] has implemented the eGFR calculation approach that does not have a coefficient for race that conforms to the NKF-ASN Task Force Recommendations. Performed By: #### 4 6124 ####[facility] [address] [place] [address] 80948 Glenn Gudino M.D. [id number] Potassium [Moles/Vol] 4.2 mmol/L Normal 3.5-5.1 [facility] Comment on above: Order Comment: [facility] has implemented the eGFR calculation approach that does not have a coefficient for race that conforms to the NKF-ASN Task Force Recommendations. Performed By: #### 4 6124 ####[facility] [address] [place] [address] 77126 Glenn Gudino M.D. [id number] Sodium [Moles/Vol] 137 mmol/L Normal 135-145 [facility] Comment on above: Order Comment: [facility] has implemented the eGFR calculation approach that does not have a coefficient for race that conforms to the NKF-ASN Task Force Recommendations. Performed By: #### 4 6124 ####[facility] [address] [place] [address] 18509 Glenn Gudino M.D. [id number] Urea nitrogen [Mass/Vol] 12 mg/dL Normal 8-25 [facility] Comment on above: Order Comment: [facility] has implemented the eGFR calculation approach that does not have a coefficient for race that conforms to the NKF-ASN Task Force Recommendations. Performed By: #### 4 6124 ####[facility] [address] [place] [address] 46351 Glenn Gudino M.D. [id number] Urea nitrogen/Creatinine [Mass ratio] 6.4 mg/mg Low 10.0-20.0 [facility] Comment on above: Order Comment: [facility] has implemented the eGFR calculation approach that does not have a coefficient for race that conforms to the NKF-ASN Task Force Recommendations. Performed By: #### 4 6124 ####[facility] [address] [place] [address] 76934 Glenn Gudino M.D. [id number] CBC W/Diff, Automatedon 02-26 PATH REV Reviewed Normal [facility] Comment on above: Result Comment: Neut rophilic leukocytosis.Normocytic anemia.Clinical correlation necessary.Cuba Manley M.D. 03/12/24 AMENDED REPORT 03/12/24 1442 PATH REV previously reported as: September Performed By: #### L 100.0100, L500.2500 ####[facility] [id number] [place], [place], [address] CBC WITH AUTO DIFFERENTIALon 03-12-2024 AUTO NRBC 0.0 % Normal [facility] Comment on above: Performed By: #### L [id number] ####[facility] [address] [place] [address] 97596 Glenn Gudino M.D. [id number] AUTO NRBC ABS COUNT 0.00 K/mcL Normal 0.00-0.00 [facility] Comment on above: Performed By: #### Hugh [id number] ####[facility] [address] [place] [address] Glenn Gudino M.D. [id number] Erythrocyte distribution width (RBC) [Ratio] 18.3 % High 11.6-14.8 [facility] Comment on above: Performed By: #### Hugh [id number] ####[facility] [address] [place] [address] Glenn Gudino M.D. [id number] Hematocrit (Bld) [Volume fraction] 23.7 % Low 36.0-46.0 [facility] Comment on above: Performed By: #### Hugh [id number] ####[facility] [address] [place] [address] Glenn Gudino M.D. [id number] Hemoglobin (Bld) [Mass/Vol] 7.0 g/dL Low 12.0-16.0 [facility] Comment on above: Performed By: #### L [id number] ####[facility] [address] [place] [address] Glenn Gudino M.D. [id number] MCH (RBC) [Entitic mass] 28.7 pg Normal 26.0-34.0 [facility] Comment on above: Performed By: #### L [id number] ####[facility] [address] [place] [address] Glenn Gudino M.D. [id number] MCV (RBC) [Entitic vol] 97.1 fL Normal 80.0-100.0 [facility] Comment on above: Performed By: #### Hugh [id number] ####[facility] [address] [place] [address] Glenn Gudino M.D. [id number] MEAN CORPUSCULAR HEMOGLOBIN CONC 29.5 g/dL Low 31.0-37.0 [facility] Comment on above: Performed By: #### L [id number] ####[facility] [address] [place], [place] [address] Glenn Gudino M.D. [id number] Platelet mean volume (Bld) [Entitic vol] 9.6 fL Normal 9.4-12.4 [facility] Comment on above: Performed By: #### L [id number] ####[facility] [address] [place], [place] [id number] Glenn Gudino M.D. [id number] Platelets (Bld) [#/Vol] 180 10*3/uL Normal 150-400 [facility] Comment on above: Performed By: #### L [id number] ####[facility] [address] [place], [place] [id number] Glenn Gudino M.D. [id number] RBC (Bld) [#/Vol] 2.44 10*6/uL Low 4.00-5.20 [facility] Comment on above: Performed By: #### L [id number] ####[facility] [address] [place], [place] [id number] Glenn Gudino M.D. [id number] WBC (Bld) [#/Vol] 5.26 10*3/uL Normal 4.50-11.00 [facility] Comment on above: Performed By: #### L [id number] ####[facility] [address] [place], [place] [id number] Glenn Gudino M.D. [id number] COMPLEMENT DIRECT ANTIGLOBUL IN TESTon 03-12-2024 COMPLEMENT DIRECT ANTIGLOBULIN TEST Negative Normal [facility] Comment on above: Performed By: #### 4 6847 ####PENDING SALE TO [facility] [address] [place], [place] [address]an Mai MD [id number] RMHTS CONSULTon 03-12-2024 CONSULT Normal [facility] CONSULT Normal [facility] ED Prov Noteon 03-12-2024 ED Prov Note Normal [facility] ELUTION-WAAon 03-12-2024 ELUTION-WAA Normal [facility] Comment on above: Performed By: #### 4 6426_WAA ####[facility] [address] [place], [place] [address] [place] [address] Nurys Oneill MD [id number] [facility] GIGGon 03-12-2024 GIGG Positive [facility] Comment on above: Performed By: #### G IGG ####[facility] [address] [place], [place] [address]sirisha [place] [address] Nurys Oneill MD [id number] [facility] H AND Ney 03-12-2024 H AND P Normal [facility] HEPATIC FUNCTION PANELon Albumin [Mass/Vol] 2.9 g/dL Low 3.2-5.2 [facility] Comment on above: Performed By: #### 4 5866 ####[facility] [address] [place], [place] [id number] Glenn Gudino M.D. [id number] ALP [Catalytic activity/Vol] 52 U/L Normal 40-150 [facility] Comment on above: Performed By: #### 4 5838 ####[facility] [address] [place], [place] [address] Glenn Gudino M.D. [id number] ALT < Normal 0-35 U/L [facility] Comment on above: Performed By: #### 4 5857 ####[facility] [address] [place], [place] [address] Glenn Gudino M.D. [id number] AST [Catalytic activity/Vol] 26 U/L Normal 0-35 U/L [facility] Comment on above: Performed By: #### 4 5840 ####[facility] [address] [place] [address] Glenn Gudino M.D. [id number] Bilirubin [Mass/Vol] 0.4 mg/dL Normal 0.0-1.3 [facility] Comment on above: Performed By: #### 4 5866 ####[facility] [address] [place], [place] [address] Glenn Gudino M.D. [id number] Bilirubin.indirect [Mass/Vol] 0.2 mg/dL Normal 0.0-0.4 [facility] Comment on above: Performed By: #### 4 5866 ####[facility] [address] [place], [place] [address] Glenn Gudino M.D. [id number] Protein [Mass/Vol] 6.5 g/dL Normal 6.0-8.0 [facility] Comment on above: Performed By: #### 4 5866 ####[facility] [address] [place], [place] [address] Glenn Gudino M.D. [id number] IRON STUDY WITH FERRITINon 1 - Ferritin [Mass/Vol] 2720 ng/mL High 13-150 [facility] Comment on above: Performed By: #### 4 7645 ####[facility] [address] [place], [place] [address]Karma Gudino M.D. [id number] Iron [Mass/Vol] 23 ug/dL Low 30-160 [facility] Comment on above: Performed By: #### 4 7661 ####[facility] [address] [place], [place] [address] Glenn Gudino M.D. [id number] IRON SATURATION 22 % Normal 20-50 [facility] Comment on above: Performed By: #### 4 7696 ####[facility] [address] [place], [place] [address] Glenn Gudino M.D. [id number] TIBC (CALCULATED) 104 mcg/dL Low 225-430 [facility] Comment on above: Performed By: #### 4 7645 ####[facility] [address] [place] [address] Glenn Gudino M.D. [id number] LACTIC ACID, PLASMAon 2023 LACTIC ACID, PLASMA 0.8 mmol/L Normal 0.6-2.0 [facility] Comment on above: Performed By: #### 4 6053 ####[facility] [address] [place] [address] Glenn Gudino M.D. [id number] MANUAL DIFFERENTIALon 2023 BASOPHILS - ABS (DIFF) 0.00 K/mcL Normal 0.00-0.30 [facility] Comment on above: Performed By: #### 4 5456 ####[facility] [address] [place] [address] Glenn Gudino M.D. [id number] BASOPHILS - REL (DIFF) 0.0 % Normal [facility] Comment on above: Performed By: #### 4 5456 ####[facility] [address] [place], [place] [address] Glenn Gudino M.D. [id number] EOSINOPHILS - ABS (DIFF) 0.00 K/mcL Normal 0.00-0.50 [facility] Comment on above: Performed By: #### 4 5456 ####[facility] [address] [place], [place] [address] Glenn Gudino M.D. [id number] EOSINOPHILS - REL (DIFF) 0.0 % Normal [facility] Comment on above: Performed By: #### 4 5456 ####[facility] [address] [place], [place] [address] Glenn Gudino M.D. [id number] LYMPHOCYTES - ABS (DIFF) 0.32 K/mcL Low 0.90-4.00 [facility] Comment on above: Performed By: #### 4 7172 ####[facility] [address] [place] [address] Glenn Gudino M.D. [id number] LYMPHOCYTES - REL (DIFF) 6.0 % Normal [facility] Comment on above: Performed By: #### 4 1827 ####[facility] [address] [place] [address] Glenn Gudino M.D. [id number] METAMYELOCYTES-REL (DIFF) 2.0 % Normal [facility] Comment on above: Performed By: #### 4 7966 ####[facility] [address] [place] [address] Glenn Gudino M.D. [id number] MONOCYTES - ABS (DIFF) 0.16 K/mcL Low 0.30-0.90 [facility] Comment on above: Performed By: #### 4 5461 ####[facility] [address] [place] [address] Glenn Gudino M.D. [id number] MONOCYTES - REL (DIFF) 3.0 % Normal [facility] Comment on above: Performed By: #### 4 2270 ####[facility] [address] [place], [place] [address] Glenn Gudino M.D. [id number] MYELOCYTES RELATIVE PERCENT 1.0 % Normal [facility] Comment on above: Performed By: #### 4 6290 ####[facility] [address] [place], [place] [address] Glenn Gudino M.D. [id number] NEUTROPHILS - ABS (DIFF) 4.79 K/mcL Normal 1.70-7.00 [facility] Comment on above: Result Comment: Left Shift Confirmed. Performed By: #### 4 9647 ####[facility] [address] [place], [place] [address] Glenn Gudino M.D. [id number] NEUTROPHILS - REL (DIFF) 88.0 % Normal [facility] Comment on above: Performed By: #### 4 5456 ####[facility] [address] [place], [place] [address] Glenn Gudino M.D. [id number] MORPHOLOGYon 03-12-2024 OVAL SCAN Few Normal [facility] Comment on above: Performed By: #### L AB295 ####[facility] [address] [place] [address] Glenn Gudino M.D. [id number] PLATELET ESTIMATE Normal Normal Normal [facility] Comment on above: Performed By: #### L AB295 ####[facility] [address] [place] [address] Glenn Gudino M.D. [id number] POLY SCAN Few Normal [facility] Comment on above: Performed By: #### L AB295 ####[facility] [address] [place], [place] [address] Glenn Gudino M.D. [id number] RBC MORPH SCAN See Comment Normal [facility] Comment on above: Result Comment: RBC Indices confirmed with manual peripheral smear review. Performed By: #### L AB295 ####[facility] [address] [place], [place] [address] Glenn Gudino M.D. [id number] TEAR DROP CELL SCAN Few Normal [facility] Comment on above: Performed By: #### L AB295 ####[facility] [address] [place], [place] [address] Glenn Gudino M.D. [id number] PERIPHERAL SMEAR REVIEW ([facility] ONLY)on 03-12-2024 SMEAR REVIEW See Comment Normal [facility] Comment on above: Result Comment: Smea r reviewed for possible immature cells. Performed By: #### C 78461 ####[facility] [address] [place], [place] [address] Glenn Gudino M.D. [id number] RETICULOCYTEon 03-12-2024 IMMATURE RETIC FRACT 26.2 % High 2.3-15.9 [facility] Comment on above: Performed By: #### 4 6452 ####[facility] [address] [place] [address] Glenn Gudino M.D. [id number] RETIC HGB EQUIVALENT 30.4 PG Normal 27.7-38.2 [facility] Comment on above: Result Comment: The cut-off for RET-He established in our institution is 27.7-38.2 pg/RBC. A value below this range is highly suggestive of iron deficiency. At values above 38.2 pg/RBC, patients are unlikely to respond to additional iron therapy. Performed By: #### 4 6452 ####[facility] [address] [place], [place] [address] Glenn Gudino M.D. [id number] RETICULOCYTE ABSOLUTE COUNT 0.088 M/mcL High 0.025-0.07 0 [facility] Comment on above: Performed By: #### 4 6452 ####[facility] [address] [place], [place] [address] Glenn Gudino M.D. [id number] RETICULOCYTE COUNT PCT 3.6 % Normal [facility] Comment on above: Performed By: #### 4 6452 ####[facility] [address] [place], [place] [address] Glenn Gudino M.D. [id number] TYPE AND SCREENon 03-12-2024 TYPE AND SCREEN ABORH: O Positive AB SCREEN: Positive EXPIRATION DATE: 03/15/2024 23:59 EST Normal [facility] Comment on above: Performed By: #### 4 6619 ####PENDING S[facility] TO [facility] [address] [place], [place] [address] Nurys Oneill MD [id number] [facility] URIC ACIDon 03-12-2024 Urate [Mass/Vol] 3.2 mg/dL Normal 2.4-7.0 [facility] Comment on above: Performed By: #### 4 6629 ####[facility] [address] [place], [place] [address] Glenn Gudino M.D. [id number] US DOPPLER SEGMENTAL ARTERIA L LEGS BILATERALon 03-12-2024 US DOPPLER SEGMENTAL ARTERIAL LEGS BILATERAL Normal [facility] XR CHEST PA/APon 03-12-2024 XR CHEST PA/AP Normal [facility] Comment on above: Order Comment: Injur y/Trauma or Illness?:Illness/OtherHow long have you had these symptoms (acute/chronic)?:UnknownReason for exam?:recheck pleural effusionsHistory of cancer?:uSurgeries, chemotherapy, or radiation?:uType of Exam?:UnknownAdditional signs and symptoms?:. Abdomen/Pelvis without Conto n 03-11-2024 Abdomen/Pelvis without Cont Normal [facility] Basic Metabolic Profile (BMP )on 03-11-2024 BUN/CRE 6.6 RATIO Low 03-17 [facility] Comment on above: Performed By: #### L 100.0100, L500.2500 ####[facility] [address] [place], [address] CA,Total 8.5 mg/dL Normal 8.5-10.1 [facility] Comment on above: Performed By: #### L 100.0100, L500.2500 ####[facility] [address] [place], [address] Chloride [Moles/Vol] 98 mmol/L Normal 98-107 [facility] Comment on above: Performed By: #### L 100.0100, L500.2500 ####[facility] [address] [place], [address] CO2 [Moles/Vol] 31.0 mmol/L Normal 21.0-32.0 [facility] Comment on above: Performed By: #### L 100.0100, L500.2500 ####[facility] [address] [place], [address] Creatinine [Mass/Vol] 1.37 mg/dL High 0.55-1.02 [facility] Comment on above: Result Comment: The validity of the calculated GFR GFRAA in patients over70 years has not been determined. Clinical correlation isessential. Performed By: #### L 100.0100, L500.2500 ####[facility] [address] [place], [address] ECRCL 39.14 ml/min Normal [facility] Comment on above: Performed By: #### L 100.0100, L500.2500 ####[facility] [address] [place], [address] EST GFR - AA 50 mL/min Low >60 [facility] Comment on above: Result Comment: Afri can [place] GFR Calc Performed By: #### L 100.0100, L500.2500 ####[facility] [address] [place], [address] GAP 5 Normal 5-15 [facility] Comment on above: Performed By: #### L 100.0100, L500.2500 ####[facility] [address] [place], [address] GFR/1.73 sq M.predicted among non-blacks MDRD (S/P/Bld) [Vol rate/Area] 42 mL/min/{1.73_m2} Low >60 [facility] Comment on above: Result Comment: Non- GFR Calc Performed By: #### L 100.0100, L500.2500 ####[facility] [address] [place], [address] Glucose [Mass/Vol] 62 mg/dL Low 74-106 [facility] Comment on above: Performed By: #### L 100.0100, L500.2500 ####[facility] [address] [place], [address] Potassium [Moles/Vol] 3.7 mmol/L Normal 3.5-5.1 [facility] Comment on above: Performed By: #### L 100.0100, L500.2500 ####[facility] [address] [place], [address] Sodium [Moles/Vol] 135 mmol/L Low 136-145 [facility] Comment on above: Performed By: #### L 100.0100, L500.2500 ####[facility] [address] [place], [address] Urea nitrogen [Mass/Vol] 9 mg/dL Normal 7-18 [facility] Comment on above: Performed By: #### L 100.0100, L500.2500 ####[facility] [address] [place], [address] Emergency Department Summary on 03-11-2024 Emergency Department Summary Normal [facility] Foot min 3 Viewson 4 Foot min 3 Views Normal [facility] CBC-Complete Blood Cnt No Di ffon 02-29-2024 Erythrocyte distribution width (RBC) [Ratio] 17.3 % High 11.6-14.6 [facility] Comment on above: Performed By: #### L 500.4050, L100.0500 ####[facility] [address] [place], [address] Hematocrit (Bld) [Volume fraction] 23.2 % Low 37-47 [facility] Comment on above: Performed By: #### L 500.4050, L100.0500 ####[facility] [address] [place], [address] Hemoglobin (Bld) [Mass/Vol] 7.1 g/dL Low 12.0-15.0 [facility] Comment on above: Performed By: #### L 500.4050, L100.0500 ####[facility] [address] [place], [address] MCH (RBC) [Entitic mass] 28.4 pg Normal 27.0-32.0 [facility] Comment on above: Performed By: #### L 500.4050, L100.0500 ####[facility] [address] [place], [address] MCHC (RBC) [Mass/Vol] 30.6 g/dL Low 32-36 [facility] Comment on above: Performed By: #### L 500.4050, L100.0500 ####[facility] [address] [place], [address] MCV (RBC) [Entitic vol] 92.8 fL Normal 81-99 [facility] Comment on above: Performed By: #### L 500.4050, L100.0500 ####[facility] [address] [place], [address] Platelet mean volume (Bld) [Entitic vol] 9.8 fL Normal 6.2-12.0 [facility] Comment on above: Performed By: #### L 500.4050, L100.0500 ####[facility] [address] [place], [address] Platelets (Bld) [#/Vol] 207 10*3/uL Normal 150-450 [facility] Comment on above: Performed By: #### L 500.4050, L100.0500 ####[facility] [address] [place], [address] RBC (Bld) [#/Vol] 2.50 10*6/uL Low 4.2-5.4 [facility] Comment on above: Performed By: #### L 500.4050, L100.0500 ####[facility] [address] [place], [address] RDW SD 57.8 fl High 35.1-43.9 [facility] Comment on above: Performed By: #### L 500.4050, L100.0500 ####[facility] [address] [place], [address] WBC (Bld) [#/Vol] 4.3 10*3/uL Low 4.4-11.0 [facility] Comment on above: Performed By: #### L 500.4050, L100.0500 ####[facility] [address] [place], [address] Comprehensive Metabolic Prof ilon 02-29-2024 Albumin [Mass/Vol] 2.1 g/dL Low 3.2-5.0 [facility] Comment on above: Performed By: #### L 500.4050, L100.0500 ####[facility] [address] [place], [address] Albumin/Globulin [Mass ratio] 0.6 {ratio} Low 0.9-2.4 [facility] Comment on above: Performed By: #### L 500.4050, L100.0500 ####[facility] [address] [place], [address] ALK P 49 U/L Normal 45-117 [facility] Comment on above: Performed By: #### L 500.4050, L100.0500 ####[facility] [address] [place], [address] ALT [Catalytic activity/Vol] 7 U/L Low 13-56 [facility] Comment on above: Performed By: #### L 500.4050, L100.0500 ####[facility] [address] [place], [address] AST [Catalytic activity/Vol] 24 U/L Normal 15-37 [facility] Comment on above: Performed By: #### L 500.4050, L100.0500 ####[facility] [address] [place], [address] Bilirubin [Mass/Vol] 0.50 mg/dL Normal 0.20-1.00 [facility] Comment on above: Result Comment: For patients on eltrombopag therapy, use of Dimension [place] TBIL is not recommended. Performed By: #### L 500.4050, L100.0500 ####[facility] [address] [place], [address] BUN/CRE 7.8 RATIO Low 10-20 [facility] Comment on above: Performed By: #### L 500.4050, L100.0500 ####[facility] [address] [place], [address] CA,Total 7.8 mg/dL Low 8.5-10.1 [facility] Comment on above: Performed By: #### L 500.4050, L100.0500 ####[facility] [address] [place], [address] Chloride [Moles/Vol] 97 mmol/L Low 98-107 [facility] Comment on above: Performed By: #### L 500.4050, L100.0500 ####[facility] [address] [place], [address] CO2 [Moles/Vol] 34.0 mmol/L High 21.0-32.0 [facility] Comment on above: Performed By: #### L 500.4050, L100.0500 ####[facility] [address] [place], [address] Creatinine [Mass/Vol] 1.79 mg/dL High 0.55-1.02 [facility] Comment on above: Result Comment: The validity of the calculated GFR GFRAA in patients over70 years has not been determined. Clinical correlation isessential. Performed By: #### L 500.4050, L100.0500 ####[facility] [address] [place], [address] EST GFR - AA 37 mL/min Low >60 [facility] Comment on above: Result Comment: Afri can [place] GFR Calc Performed By: #### L 500.4050, L100.0500 ####[facility] [address] [place], [address] GAP 4 Low 5-15 [facility] Comment on above: Performed By: #### L 500.4050, L100.0500 ####[facility] [address] [place], [address] GFR/1.73 sq M.predicted among non-blacks MDRD (S/P/Bld) [Vol rate/Area] 31 mL/min/{1.73_m2} Low >60 [facility] Comment on above: Result Comment: Non- GFR Calc Performed By: #### L 500.4050, L100.0500 ####[facility] [address] [place], [address] Globulin (S) [Mass/Vol] 3.8 g/dL Normal 2.2-4.2 [facility] Comment on above: Performed By: #### L 500.4050, L100.0500 ####[facility] [address] [place], [address] Glucose [Mass/Vol] 90 mg/dL Normal 74-106 [facility] Comment on above: Performed By: #### L 500.4050, L100.0500 ####[facility] [address] [place], [address] Potassium [Moles/Vol] 2.6 mmol/L Invalid Interpretation Code 3.5-5.1 [facility] Comment on above: Result Comment: Crit ical Result(s) Called at: 11:16:28 02/29/2024 by: Jamee to Dodie Addison. Results read back by same. Performed By: #### L 500.4050, L100.0500 ####[facility] [address] [place], [address] Sodium [Moles/Vol] 135 mmol/L Low 136-145 [facility] Comment on above: Performed By: #### L 500.4050, L100.0500 ####[facility] [address] [place], [address] T PROT 5.9 g/dL Low 6.4-8.2 [facility] Comment on above: Performed By: #### L 500.4050, L100.0500 ####[facility] [address] [place], [address] Urea nitrogen [Mass/Vol] 14 mg/dL Normal 7-18 [facility] Comment on above: Performed By: #### L 500.4050, L100.0500 ####[facility] [address] [place], [address] CALCIUM, IONIZEDon 4 CALCIUM IONIZED 4.3 mg/dL Low 4.5-5.3 [facility] Comment on above: Order Comment: Serum , non-CRRT source. Performed By: #### 4 5190 ####[facility] [address] [place] [address] Glenn Gudino M.D. [id number] CBCon 02-25-2024 AUTO NRBC 0.0 % Normal [facility] Comment on above: Performed By: #### 4 5218 ####[facility] [address] [place] [address] Glenn Gudino M.D. [id number] AUTO NRBC ABS COUNT 0.00 K/mcL Normal 0.00-0.00 [facility] Comment on above: Performed By: #### 4 5218 ####[facility] [address] [place], [place] [address] Glenn Gudino M.D. [id number] Erythrocyte distribution width (RBC) [Ratio] 17.2 % High 11.6-14.8 [facility] Comment on above: Performed By: #### 4 5218 ####[facility] [address] [place] [address] Glenn Gduino M.D. [id number] Hematocrit (Bld) [Volume fraction] 24.5 % Low 36.0-46.0 [facility] Comment on above: Performed By: #### 4 5218 ####[facility] [address] [place], [place] [address] Glenn Gudino M.D. [id number] Hemoglobin (Bld) [Mass/Vol] 7.6 g/dL Low 12.0-16.0 [facility] Comment on above: Performed By: #### 4 5218 ####[facility] [address] [place], [place] [address] Glenn Gudino M.D. [id number] MCH (RBC) [Entitic mass] 28.6 pg Normal 26.0-34.0 [facility] Comment on above: Performed By: #### 4 5218 ####[facility] [address] [place], [place] [address] Glenn Gudino M.D. [id number] MCV (RBC) [Entitic vol] 92.1 fL Normal 80.0-100.0 [facility] Comment on above: Performed By: #### 4 5218 ####[facility] [address] [place], [place] [address] Glenn Gudino M.D. [id number] MEAN CORPUSCULAR HEMOGLOBIN CONC 31.0 g/dL Normal 31.0-37.0 [facility] Comment on above: Performed By: #### 4 5218 ####[facility] [address] [place] [address] Glenn Gudino M.D. [id number] Platelet mean volume (Bld) [Entitic vol] 9.4 fL Normal 9.4-12.4 [facility] Comment on above: Performed By: #### 4 5218 ####[facility] [address] [place], [place] [address] Glenn Gudino M.D. [id number] Platelets (Bld) [#/Vol] 215 10*3/uL Normal 150-400 [facility] Comment on above: Performed By: #### 4 5218 ####[facility] [address] [place], [place] [address] Glenn Gudino M.D. [id number] RBC (Bld) [#/Vol] 2.66 10*6/uL Low 4.00-5.20 [facility] Comment on above: Performed By: #### 4 5218 ####[facility] [address] [place], [place] [address] Glenn Gudino M.D. [id number] WBC (Bld) [#/Vol] 6.32 10*3/uL Normal 4.50-11.00 [facility] Comment on above: Performed By: #### 4 5218 ####[facility] [address] [place], [place] [address] Glenn Gudino M.D. [id number] Disch Summon 02-25-2024 Disch Summ Normal [facility] MAGNESIUM LEVELon 02-25-2024 Magnesium [Mass/Vol] 2.0 mg/dL Normal 1.6-2.4 [facility] Comment on above: Performed By: #### 4 6109 ####[facility] [address] [place], [place] [address] Glenn Gudino M.D. [id number] RENAL FUNCTION PANELon 02-24 Albumin [Mass/Vol] 2.6 g/dL Low 3.2-5.2 [facility] Comment on above: Order Comment: [facility] has implemented the eGFR calculation approach that does not have a coefficient for race that conforms to the NKF-ASN Task Force Recommendations. Performed By: #### 4 6449 ####[facility] [address] [place], [place] [address] Glenn Gudino M.D. [id number] Anion gap [Moles/Vol] 16 mmol/L Normal 10-20 [facility] Comment on above: Order Comment: [facility] Services has implemented the eGFR calculation approach that does not have a coefficient for race that conforms to the NKF-ASN Task Force Recommendations. Performed By: #### 4 6449 ####[facility] [address] [place], [place] [address] Glenn Gudino M.D. [id number] Calcium [Mass/Vol] 7.7 mg/dL Low 8.4-10.2 [facility] Comment on above: Order Comment: [facility] has implemented the eGFR calculation approach that does not have a coefficient for race that conforms to the NKF-ASN Task Force Recommendations. Performed By: #### 4 6449 ####[facility] [address] [place] [address] Glenn Gudino M.D. [id number] Chloride [Moles/Vol] 95 mmol/L Low 98-108 [facility] Comment on above: Order Comment: [facility] has implemented the eGFR calculation approach that does not have a coefficient for race that conforms to the NKF-ASN Task Force Recommendations. Performed By: #### 4 6449 ####[facility] [address] [place] [address] 49497 Glenn Gudino M.D. [id number] Creatinine [Mass/Vol] 2.62 mg/dL High 0.60-1.10 [facility] Comment on above: Order Comment: [facility] has implemented the eGFR calculation approach that does not have a coefficient for race that conforms to the NKF-ASN Task Force Recommendations. Performed By: #### 4 6449 ####[facility] [address] [place] [address] 64692 Glenn Gudino M.D. [id number] EGFR 20 mL/min/1.73 m2 Low >=60 [facility] Comment on above: Order Comment: [facility] has implemented the eGFR calculation approach that does not have a coefficient for race that conforms to the NKF-ASN Task Force Recommendations. Result Comment: Joi mated GFR was calculated using the 2020 CKD-EPI creatinine equation. Performed By: #### 4 6449 ####[facility] [address] [place], [place] [address] Glenn Gudino M.D. [id number] Glucose [Mass/Vol] 93 mg/dL Normal 65-99 [facility] Comment on above: Order Comment: [facility] has implemented the eGFR calculation approach that does not have a coefficient for race that conforms to the NKF-ASN Task Force Recommendations. Performed By: #### 4 6449 ####[facility] [address] [place] [address] 15574 Glenn Gudino M.D. [id number] HCO3 (Bld) [Moles/Vol] 25 mmol/L Normal 21-32 [facility] Comment on above: Order Comment: [facility] has implemented the eGFR calculation approach that does not have a coefficient for race that conforms to the NKF-ASN Task Force Recommendations. Performed By: #### 4 6449 ####[facility] [address] [place] [address] 92069 Glenn Gudino M.D. [id number] Phosphate [Mass/Vol] 4.0 mg/dL Normal 2.8-4.1 [facility] Comment on above: Order Comment: [facility] has implemented the eGFR calculation approach that does not have a coefficient for race that conforms to the NKF-ASN Task Force Recommendations. Performed By: #### 4 6449 ####[facility] [address] [place] [address] 68886 Glenn Gudino M.D. [id number] Potassium [Moles/Vol] 3.8 mmol/L Normal 3.5-5.1 [facility] Comment on above: Order Comment: [facility] has implemented the eGFR calculation approach that does not have a coefficient for race that conforms to the NKF-ASN Task Force Recommendations. Performed By: #### 4 6449 ####[facility] [address] [place] [address] Glenn Gudino M.D. [id number] Sodium [Moles/Vol] 132 mmol/L Low 135-145 [facility] Comment on above: Order Comment: [facility] has implemented the eGFR calculation approach that does not have a coefficient for race that conforms to the NKF-ASN Task Force Recommendations. Performed By: #### 4 6449 ####[facility] [address] [place] [address] 70657 Glenn Gudino M.D. [id number] Urea nitrogen [Mass/Vol] 26 mg/dL High 8-25 [facility] Comment on above: Order Comment: [facility] has implemented the eGFR calculation approach that does not have a coefficient for race that conforms to the NKF-ASN Task Force Recommendations. Performed By: #### 4 6449 ####[facility] [address] [place] [address] 48831 Glenn Gudino M.D. [id number] Urea nitrogen/Creatinine [Mass ratio] 9.9 mg/mg Low 10.0-20.0 [facility] Comment on above: Order Comment: [facility] has implemented the eGFR calculation approach that does not have a coefficient for race that conforms to the NKF-ASN Task Force Recommendations. Performed By: #### 4 6449 ####[facility] [address] [place], [place] [address] Glenn Gudino M.D. [id number] CALCIUM, IONIZEDon CALCIUM IONIZED 4.2 mg/dL Low 4.5-5.3 [facility] Comment on above: Order Comment: Serum , non-CRRT source. Performed By: #### 4 5190 ####[facility] [address] [place] [address] Glenn Gudino M.D. [id number] CBCon 02-24-2024 AUTO NRBC 0.0 % Normal [facility] Comment on above: Performed By: #### 4 [id number] ####[facility] [address] [place] [address] Glenn Gudino M.D. [id number] AUTO NRBC ABS COUNT 0.00 K/mcL Normal 0.00-0.00 [facility] Comment on above: Performed By: #### 4 [id number] ####[facility] [address] [place], [place] [address] Glenn Gudino M.D. [id number] Erythrocyte distribution width (RBC) [Ratio] 17.3 % High 11.6-14.8 [facility] Comment on above: Performed By: #### 4 [id number] ####[facility] [address] [place], [place] [address] Glenn Gudino M.D. [id number] Hematocrit (Bld) [Volume fraction] 24.7 % Low 36.0-46.0 [facility] Comment on above: Performed By: #### 4 [id number] ####[facility] [address] [place], [place] [address] Glenn Gudino M.D. [id number] Hemoglobin (Bld) [Mass/Vol] 7.7 g/dL Low 12.0-16.0 [facility] Comment on above: Performed By: #### 4 [id number] ####[facility] [address] [place] [address] 18354 Glenn Gudino M.D. [id number] MCH (RBC) [Entitic mass] 29.2 pg Normal 26.0-34.0 [facility] Comment on above: Performed By: #### 4 [id number] ####[facility] [address] [place] [address] Glenn Gudino M.D. [id number] MCV (RBC) [Entitic vol] 93.6 fL Normal 80.0-100.0 [facility] Comment on above: Performed By: #### 4 [id number] ####[facility] [address] [place] [address] Glenn Gudino M.D. [id number] MEAN CORPUSCULAR HEMOGLOBIN CONC 31.2 g/dL Normal 31.0-37.0 [facility] Comment on above: Performed By: #### 4 [id number] ####[facility] [address] [place], [place] [address] Glenn Gudino M.D. [id number] Platelet mean volume (Bld) [Entitic vol] 9.7 fL Normal 9.4-12.4 [facility] Comment on above: Performed By: #### 4 [id number] ####[facility] [address] [place], [place] [address] Glenn Gudino M.D. [id number] Platelets (Bld) [#/Vol] 222 10*3/uL Normal 150-400 [facility] Comment on above: Performed By: #### 4 [id number] ####[facility] [address] [place], [place] [address] Glenn Gudino M.D. [id number] RBC (Bld) [#/Vol] 2.64 10*6/uL Low 4.00-5.20 [facility] Comment on above: Performed By: #### 4 [id number] ####[facility] [address] [place] [address] 90395 Glenn Gudino M.D. [id number] WBC (Bld) [#/Vol] 6.53 10*3/uL Normal 4.50-11.00 [facility] Comment on above: Performed By: #### 4 [id number] ####[facility] [address] [place] [address] 95590 Glenn Gudino M.D. [id number] MAGNESIUM LEVELon 02-24-2024 Magnesium [Mass/Vol] 1.5 mg/dL Low 1.6-2.4 [facility] Comment on above: Performed By: #### 4 6109 ####[facility] [address] [place] [address] 16704 Glenn Gudino M.D. [id number] RENAL FUNCTION PANELon 02-23 Albumin [Mass/Vol] 2.5 g/dL Low 3.2-5.2 [facility] Comment on above: Order Comment: [facility] has implemented the eGFR calculation approach that does not have a coefficient for race that conforms to the NKF-ASN Task Force Recommendations. Performed By: #### 4 6449 ####[facility] [address] [place] [address] 50840 Glenn Gudino M.D. [id number] Anion gap [Moles/Vol] 12 mmol/L Normal 10-20 [facility] Comment on above: Order Comment: [facility] has implemented the eGFR calculation approach that does not have a coefficient for race that conforms to the NKF-ASN Task Force Recommendations. Performed By: #### 4 6449 ####[facility] [address] [place] [address] 44782 Glenn Gudino M.D. [id number] Calcium [Mass/Vol] 7.4 mg/dL Low 8.4-10.2 [facility] Comment on above: Order Comment: [facility] has implemented the eGFR calculation approach that does not have a coefficient for race that conforms to the NKF-ASN Task Force Recommendations. Performed By: #### 4 6449 ####[facility] [address] [place] [address] 29494 Glenn Gudino M.D. [id number] Chloride [Moles/Vol] 96 mmol/L Low 98-108 [facility] Comment on above: Order Comment: [facility] has implemented the eGFR calculation approach that does not have a coefficient for race that conforms to the NKF-ASN Task Force Recommendations. Performed By: #### 4 6449 ####[facility] [address] [place], [place] [address] Glenn Gudino M.D. [id number] Creatinine [Mass/Vol] 1.90 mg/dL High 0.60-1.10 [facility] Comment on above: Order Comment: [facility] has implemented the eGFR calculation approach that does not have a coefficient for race that conforms to the NKF-ASN Task Force Recommendations. Performed By: #### 4 6449 ####[facility] [address] [place] [address] 19623 Glenn Gudino M.D. [id number] EGFR 30 mL/min/1.73 m2 Low >=60 [facility] Comment on above: Order Comment: [facility] has implemented the eGFR calculation approach that does not have a coefficient for race that conforms to the NKF-ASN Task Force Recommendations. Result Comment: Joi mated GFR was calculated using the 2020 CKD-EPI creatinine equation. Performed By: #### 4 6449 ####[facility] [address] [place] [address] 71392 Glenn Gudino M.D. [id number] Glucose [Mass/Vol] 87 mg/dL Normal 65-99 [facility] Comment on above: Order Comment: [facility] has implemented the eGFR calculation approach that does not have a coefficient for race that conforms to the NKF-ASN Task Force Recommendations. Performed By: #### 4 6449 ####[facility] [address] [place] [address] 19467 Glenn Gudino M.D. [id number] HCO3 (Bld) [Moles/Vol] 29 mmol/L Normal 21-32 [facility] Comment on above: Order Comment: [facility] has implemented the eGFR calculation approach that does not have a coefficient for race that conforms to the NKF-ASN Task Force Recommendations. Performed By: #### 4 6449 ####[facility] [address] [place] [address] 14391 Glenn Gudino M.D. [id number] Phosphate [Mass/Vol] 3.0 mg/dL Normal 2.8-4.1 [facility] Comment on above: Order Comment: [facility] has implemented the eGFR calculation approach that does not have a coefficient for race that conforms to the NKF-ASN Task Force Recommendations. Performed By: #### 4 6449 ####[facility] [address] [place] [address] 85067 Glenn Gudino M.D. [id number] Potassium [Moles/Vol] 3.6 mmol/L Normal 3.5-5.1 [facility] Comment on above: Order Comment: [facility] has implemented the eGFR calculation approach that does not have a coefficient for race that conforms to the NKF-ASN Task Force Recommendations. Performed By: #### 4 6449 ####[facility] [address] [place] [address] 97323 Glenn Gudino M.D. [id number] Sodium [Moles/Vol] 133 mmol/L Low 135-145 [facility] Comment on above: Order Comment: [facility] has implemented the eGFR calculation approach that does not have a coefficient for race that conforms to the NKF-ASN Task Force Recommendations. Performed By: #### 4 6449 ####[facility] [address] [place] [address] 66911 Glenn Gudino M.D. [id number] Urea nitrogen [Mass/Vol] 19 mg/dL Normal 8-25 [facility] Comment on above: Order Comment: [facility] has implemented the eGFR calculation approach that does not have a coefficient for race that conforms to the NKF-ASN Task Force Recommendations. Performed By: #### 4 6449 ####[facility] [address] [place], [place] [address] Glenn Guidno M.D. [id number] Urea nitrogen/Creatinine [Mass ratio] 10.0 mg/mg Normal 10.0-20.0 [facility] Comment on above: Order Comment: [facility] has implemented the eGFR calculation approach that does not have a coefficient for race that conforms to the NKF-ASN Task Force Recommendations. Performed By: #### 4 6449 ####[facility] [address] [place], [place] [address] Glenn Gudino M.D. [id number] CALCIUM, IONIZEDon CALCIUM IONIZED 4.4 mg/dL Low 4.5-5.3 [facility] Comment on above: Order Comment: Serum , non-CRRT source. Performed By: #### 4 5190 ####[facility] [address] [place] [address] 07767 Glenn Gudino M.D. [id number] CBCon 02-23-2024 AUTO NRBC 0.0 % Normal [facility] Comment on above: Performed By: #### 4 [id number] ####[facility] [address] [place] [address] 88045 Glenn Gudino M.D. [id number] AUTO NRBC ABS COUNT 0.00 K/mcL Normal 0.00-0.00 [facility] Comment on above: Performed By: #### 4 [id number] ####[facility] [address] [place], [place] [address] Glenn Gudino M.D. [id number] Erythrocyte distribution width (RBC) [Ratio] 17.9 % High 11.6-14.8 [facility] Comment on above: Performed By: #### 4 [id number] ####[facility] [address] [place], [place] [address] Glenn Gudino M.D. [id number] Hematocrit (Bld) [Volume fraction] 26.1 % Low 36.0-46.0 [facility] Comment on above: Performed By: #### 4 [id number] ####[facility] [address] [place] [address] Glenn Gudino M.D. [id number] Hemoglobin (Bld) [Mass/Vol] 8.1 g/dL Low 12.0-16.0 [facility] Comment on above: Performed By: #### 4 [id number] ####[facility] [address] [place], [place] [address] Glenn Gudino M.D. [id number] MCH (RBC) [Entitic mass] 28.9 pg Normal 26.0-34.0 [facility] Comment on above: Performed By: #### 4 [id number] ####[facility] [address] [place], [place] [address] Glenn Gudino M.D. [id number] MCV (RBC) [Entitic vol] 93.2 fL Normal 80.0-100.0 [facility] Comment on above: Performed By: #### 4 [id number] ####[facility] [address] [place], [place] [address] Glenn Gudino M.D. [id number] MEAN CORPUSCULAR HEMOGLOBIN CONC 31.0 g/dL Normal 31.0-37.0 [facility] Comment on above: Performed By: #### 4 [id number] ####[facility] [address] [place] [address] 75076 Glenn Gudino M.D. [id number] Platelet mean volume (Bld) [Entitic vol] 9.5 fL Normal 9.4-12.4 [facility] Comment on above: Performed By: #### 4 [id number] ####[facility] [address] [place] [address] 59752 Glenn Gudino M.D. [id number] Platelets (Bld) [#/Vol] 232 10*3/uL Normal 150-400 [facility] Comment on above: Performed By: #### 4 [id number] ####[facility] [address] [place], [place] [address] Glenn Gudino M.D. [id number] RBC (Bld) [#/Vol] 2.80 10*6/uL Low 4.00-5.20 [facility] Comment on above: Performed By: #### 4 [id number] ####[facility] [address] [place], [place] [address] Glenn Gudino M.D. [id number] WBC (Bld) [#/Vol] 8.31 10*3/uL Normal 4.50-11.00 [facility] Comment on above: Performed By: #### 4 [id number] ####[facility] [address] [place] [address] 11939 Glenn Gudino M.D. [id number] CONSULTon 02-23-2024 CONSULT Normal [facility] MAGNESIUM LEVELon 02-23-2024 Magnesium [Mass/Vol] 1.7 mg/dL Normal 1.6-2.4 [facility] Comment on above: Performed By: #### 4 6109 ####[facility] [address] [place] [address] 05463 Glenn Gudino M.D. [id number] RENAL FUNCTION PANELon 02-22 Albumin [Mass/Vol] 2.3 g/dL Low 3.2-5.2 [facility] Comment on above: Order Comment: [facility] has implemented the eGFR calculation approach that does not have a coefficient for race that conforms to the NKF-ASN Task Force Recommendations. Performed By: #### 4 6449 ####[facility] [address] [place], [place] [address] Glenn Gudino M.D. [id number] Anion gap [Moles/Vol] 13 mmol/L Normal 10-20 [facility] Comment on above: Order Comment: [facility] has implemented the eGFR calculation approach that does not have a coefficient for race that conforms to the NKF-ASN Task Force Recommendations. Performed By: #### 4 6449 ####[facility] [address] [place], [place] [address] Glenn Gudino M.D. [id number] Calcium [Mass/Vol] 7.5 mg/dL Low 8.4-10.2 [facility] Comment on above: Order Comment: [facility] has implemented the eGFR calculation approach that does not have a coefficient for race that conforms to the NKF-ASN Task Force Recommendations. Performed By: #### 4 6449 ####[facility] [address] [place], [place] [address] Glenn Gudino M.D. [id number] Chloride [Moles/Vol] 98 mmol/L Normal 98-108 [facility] Comment on above: Order Comment: [facility] has implemented the eGFR calculation approach that does not have a coefficient for race that conforms to the NKF-ASN Task Force Recommendations. Performed By: #### 4 6449 ####[facility] [address] [place] [address] 43696 Glenn Gduino M.D. [id number] Creatinine [Mass/Vol] 2.25 mg/dL High 0.60-1.10 [facility] Comment on above: Order Comment: [facility] has implemented the eGFR calculation approach that does not have a coefficient for race that conforms to the NKF-ASN Task Force Recommendations. Performed By: #### 4 6449 ####[facility] [address] [place] [address] 39494 Glenn Gudino M.D. [id number] EGFR 24 mL/min/1.73 m2 Low >=60 [facility] Comment on above: Order Comment: [facility] has implemented the eGFR calculation approach that does not have a coefficient for race that conforms to the NKF-ASN Task Force Recommendations. Result Comment: Joi mated GFR was calculated using the 2020 CKD-EPI creatinine equation. Performed By: #### 4 6449 ####[facility] [address] [place] [address] 86459 Glenn Gudino M.D. [id number] Glucose [Mass/Vol] 114 mg/dL High 65-99 [facility] Comment on above: Order Comment: [facility] has implemented the eGFR calculation approach that does not have a coefficient for race that conforms to the NKF-ASN Task Force Recommendations. Performed By: #### 4 6449 ####[facility] [address] [place] [address] 60374 Glenn Gudino M.D. [id number] HCO3 (Bld) [Moles/Vol] 27 mmol/L Normal 21-32 [facility] Comment on above: Order Comment: [facility] has implemented the eGFR calculation approach that does not have a coefficient for race that conforms to the NKF-ASN Task Force Recommendations. Performed By: #### 4 6449 ####[facility] [address] [place] [address] 83373 Glenn Gudino M.D. [id number] Phosphate [Mass/Vol] 3.9 mg/dL Normal 2.8-4.1 [facility] Comment on above: Order Comment: [facility] has implemented the eGFR calculation approach that does not have a coefficient for race that conforms to the NKF-ASN Task Force Recommendations. Performed By: #### 4 6449 ####[facility] [address] [place] [address] 63435 Glenn Gudino M.D. [id number] Potassium [Moles/Vol] 3.6 mmol/L Normal 3.5-5.1 [facility] Comment on above: Order Comment: [facility] has implemented the eGFR calculation approach that does not have a coefficient for race that conforms to the NKF-ASN Task Force Recommendations. Performed By: #### 4 6449 ####[facility] [address] [place] [address] 57682 Glenn Gudino M.D. [id number] Sodium [Moles/Vol] 134 mmol/L Low 135-145 [facility] Comment on above: Order Comment: [facility] has implemented the eGFR calculation approach that does not have a coefficient for race that conforms to the NKF-ASN Task Force Recommendations. Performed By: #### 4 6449 ####[facility] [address] [place] [address] 19035 Glenn Gudino M.D. [id number] Urea nitrogen [Mass/Vol] 26 mg/dL High 8-25 [facility] Comment on above: Order Comment: [facility] has implemented the eGFR calculation approach that does not have a coefficient for race that conforms to the NKF-ASN Task Force Recommendations. Performed By: #### 4 6449 ####[facility] [address] [place], [place] [address] Glenn Gudino M.D. [id number] Urea nitrogen/Creatinine [Mass ratio] 11.6 mg/mg Normal 10.0-20.0 [facility] Comment on above: Order Comment: [facility] has implemented the eGFR calculation approach that does not have a coefficient for race that conforms to the NKF-ASN Task Force Recommendations. Performed By: #### 4 6449 ####[facility] [address] [place], [place] [address] Glenn Gudino M.D. [id number] CALCIUM, IONIZEDon CALCIUM IONIZED 4.3 mg/dL Low 4.5-5.3 [facility] Comment on above: Order Comment: Serum , non-CRRT source. Performed By: #### 4 5190 ####[facility] [address] [place] [address] Glenn Gudino M.D. [id number] CBCon 02-22-2024 AUTO NRBC 0.0 % Normal [facility] Comment on above: Performed By: #### 4 [id number] ####[facility] [address] [place] [address] Glenn Gudino M.D. [id number] AUTO NRBC ABS COUNT 0.00 K/mcL Normal 0.00-0.00 [facility] Comment on above: Performed By: #### 4 [id number] ####[facility] [address] [place] [address] Glenn Gudino M.D. [id number] Erythrocyte distribution width (RBC) [Ratio] 18.2 % High 11.6-14.8 [facility] Comment on above: Performed By: #### 4 [id number] ####[facility] [address] [place], [place] [address] Glenn Gudino M.D. [id number] Hematocrit (Bld) [Volume fraction] 25.0 % Low 36.0-46.0 [facility] Comment on above: Performed By: #### 4 [id number] ####[facility] [address] [place], [place] [address] Glenn Gudino M.D. [id number] Hemoglobin (Bld) [Mass/Vol] 7.9 g/dL Low 12.0-16.0 [facility] Comment on above: Performed By: #### 4 [id number] ####[facility] [address] [place] [address] Glenn Gudino M.D. [id number] MCH (RBC) [Entitic mass] 29.4 pg Normal 26.0-34.0 [facility] Comment on above: Performed By: #### 4 [id number] ####[facility] [address] [place] [address] Glenn Gudino M.D. [id number] MCV (RBC) [Entitic vol] 92.9 fL Normal 80.0-100.0 [facility] Comment on above: Performed By: #### 4 [id number] ####[facility] [address] [place] [address] Glenn Gudino M.D. [id number] MEAN CORPUSCULAR HEMOGLOBIN CONC 31.6 g/dL Normal 31.0-37.0 [facility] Comment on above: Performed By: #### 4 [id number] ####[facility] [address] [place] [address] Glenn Gudino M.D. [id number] Platelet mean volume (Bld) [Entitic vol] 9.4 fL Normal 9.4-12.4 [facility] Comment on above: Performed By: #### 4 5218 ####[facility] [address] [place] [address] Glenn Gudino M.D. [id number] Platelets (Bld) [#/Vol] 223 10*3/uL Normal 150-400 [facility] Comment on above: Performed By: #### 4 [id number] ####[facility] [address] [place] [address] Glenn Gudino M.D. [id number] RBC (Bld) [#/Vol] 2.69 10*6/uL Low 4.00-5.20 [facility] Comment on above: Performed By: #### 4 [id number] ####[facility] [address] [place] [address] Glenn Gudino M.D. [id number] WBC (Bld) [#/Vol] 15.60 10*3/uL High 4.50-11.00 [facility] Comment on above: Performed By: #### 4 [id number] ####[facility] [address] [place], [place] [address] Glenn Gudino M.D. [id number] MAGNESIUM LEVELon 02-22-2024 Magnesium [Mass/Vol] 1.7 mg/dL Normal 1.6-2.4 [facility] Comment on above: Performed By: #### 4 6109 ####[facility] [address] [place], [place] [address] Glenn Gudino M.D. [id number] RENAL FUNCTION PANELon 02-21 Albumin [Mass/Vol] 2.4 g/dL Low 3.2-5.2 [facility] Comment on above: Order Comment: [facility] has implemented the eGFR calculation approach that does not have a coefficient for race that conforms to the NKF-ASN Task Force Recommendations. Performed By: #### 4 6449 ####[facility] [address] [place], [place] [address] Glenn Gudino M.D. [id number] Anion gap [Moles/Vol] 13 mmol/L Normal 10-20 [facility] Comment on above: Order Comment: [facility] has implemented the eGFR calculation approach that does not have a coefficient for race that conforms to the NKF-ASN Task Force Recommendations. Performed By: #### 4 6449 ####[facility] [address] [place] [address] Glenn Gudino M.D. [id number] Calcium [Mass/Vol] 7.2 mg/dL Low 8.4-10.2 [facility] Comment on above: Order Comment: [facility] has implemented the eGFR calculation approach that does not have a coefficient for race that conforms to the NKF-ASN Task Force Recommendations. Performed By: #### 4 6449 ####[facility] [address] [place] [address] Glenn Gudino M.D. [id number] Chloride [Moles/Vol] 98 mmol/L Normal 98-108 [facility] Comment on above: Order Comment: [facility] has implemented the eGFR calculation approach that does not have a coefficient for race that conforms to the NKF-ASN Task Force Recommendations. Performed By: #### 4 6449 ####[facility] [address] [place] [address] Glenn Gudino M.D. [id number] Creatinine [Mass/Vol] 1.51 mg/dL High 0.60-1.10 [facility] Comment on above: Order Comment: [facility] has implemented the eGFR calculation approach that does not have a coefficient for race that conforms to the NKF-ASN Task Force Recommendations. Performed By: #### 4 6449 ####[facility] [address] [place] [address] Glenn Gudino M.D. [id number] EGFR 39 mL/min/1.73 m2 Low >=60 [facility] Comment on above: Order Comment: [facility] has implemented the eGFR calculation approach that does not have a coefficient for race that conforms to the NKF-ASN Task Force Recommendations. Result Comment: Joi mated GFR was calculated using the 2020 CKD-EPI creatinine equation. Performed By: #### 4 6449 ####[facility] [address] [place] [address] Glenn Gudino M.D. [id number] Glucose [Mass/Vol] 140 mg/dL High 65-99 [facility] Comment on above: Order Comment: [facility] has implemented the eGFR calculation approach that does not have a coefficient for race that conforms to the NKF-ASN Task Force Recommendations. Performed By: #### 4 6449 ####[facility] [address] [place] [address] Glenn Gudino M.D. [id number] HCO3 (Bld) [Moles/Vol] 28 mmol/L Normal 21-32 [facility] Comment on above: Order Comment: [facility] has implemented the eGFR calculation approach that does not have a coefficient for race that conforms to the NKF-ASN Task Force Recommendations. Performed By: #### 4 6449 ####[facility] [address] [place], [place] [address] Glenn Gudino M.D. [id number] Phosphate [Mass/Vol] 3.0 mg/dL Normal 2.8-4.1 [facility] Comment on above: Order Comment: [facility] has implemented the eGFR calculation approach that does not have a coefficient for race that conforms to the NKF-ASN Task Force Recommendations. Performed By: #### 4 6449 ####[facility] [address] [place], [place] [address] Glenn Gudino M.D. [id number] Potassium [Moles/Vol] 3.6 mmol/L Normal 3.5-5.1 [facility] Comment on above: Order Comment: [facility] has implemented the eGFR calculation approach that does not have a coefficient for race that conforms to the NKF-ASN Task Force Recommendations. Performed By: #### 4 6449 ####[facility] [address] [place], [place] [address] Glenn Gudino M.D. [id number] Sodium [Moles/Vol] 135 mmol/L Normal 135-145 [facility] Comment on above: Order Comment: [facility] has implemented the eGFR calculation approach that does not have a coefficient for race that conforms to the NKF-ASN Task Force Recommendations. Performed By: #### 4 6449 ####[facility] [address] [place], [place] [address] Glenn Gudino M.D. [id number] Urea nitrogen [Mass/Vol] 20 mg/dL Normal 8-25 [facility] Comment on above: Order Comment: [facility] has implemented the eGFR calculation approach that does not have a coefficient for race that conforms to the NKF-ASN Task Force Recommendations. Performed By: #### 4 6449 ####[facility] [address] [place] [address] Glenn Gudino M.D. [id number] Urea nitrogen/Creatinine [Mass ratio] 13.2 mg/mg Normal 10.0-20.0 [facility] Comment on above: Order Comment: [facility] has implemented the eGFR calculation approach that does not have a coefficient for race that conforms to the NKF-ASN Task Force Recommendations. Performed By: #### 4 6449 ####[facility] [address] [place] [address] Glenn Gduino M.D. [id number] ANTIBODY IDENTIFICATION-Con 02-21-2024 ANTIBODY IDENTIFICATION-C Normal [facility] Comment on above: Performed By: #### 4 6427_Anti-C ####PENDING SALE TO [facility] [address] [place] [address] Nurys Oneill MD [id number] [facility] CALCIUM, IONIZEDon CALCIUM IONIZED 4.5 mg/dL Normal 4.5-5.3 [facility] Comment on above: Order Comment: Serum , non-CRRT source. Performed By: #### 4 5190 ####[facility] [address] [place] [address] Glenn Gudino M.D. [id number] CBCon 02-21-2024 AUTO NRBC 0.0 % Normal [facility] Comment on above: Performed By: #### 4 5218 ####[facility] [address] [place] [address] Glenn Gudino M.D. [id number] AUTO NRBC ABS COUNT 0.00 K/mcL Normal 0.00-0.00 [facility] Comment on above: Performed By: #### 4 5218 ####[facility] [address] [place], [place] [address] Glenn Gudino M.D. [id number] Erythrocyte distribution width (RBC) [Ratio] 18.6 % High 11.6-14.8 [facility] Comment on above: Performed By: #### 4 [id number] ####[facility] [address] [place] [address] Glenn Gudino M.D. [id number] Hematocrit (Bld) [Volume fraction] 24.4 % Low 36.0-46.0 [facility] Comment on above: Performed By: #### 4 [id number] ####[facility] [address] [place], [place] [address] Glenn Gudino M.D. [id number] Hemoglobin (Bld) [Mass/Vol] 7.8 g/dL Low 12.0-16.0 [facility] Comment on above: Result Comment: Zuleima pheral smear reviewed manually Performed By: #### 4 6555 ####[facility] [address] [place], [place] [address] Glenn Gudino M.D. [id number] MCH (RBC) [Entitic mass] 29.4 pg Normal 26.0-34.0 [facility] Comment on above: Performed By: #### 4 9018 ####[facility] [address] [place], [place] [address] Glenn Gudino M.D. [id number] MCV (RBC) [Entitic vol] 92.1 fL Normal 80.0-100.0 [facility] Comment on above: Performed By: #### 4 5244 ####[facility] [address] [place], [place] [address] Glenn Gudino M.D. [id number] MEAN CORPUSCULAR HEMOGLOBIN CONC 32.0 g/dL Normal 31.0-37.0 [facility] Comment on above: Performed By: #### 4 [id number] ####[facility] [address] [place] [address] Glenn Gudino M.D. [id number] Platelet mean volume (Bld) [Entitic vol] 9.5 fL Normal 9.4-12.4 [facility] Comment on above: Performed By: #### 4 [id number] ####[facility] [address] [place], [place] [address] Glenn Gudino M.D. [id number] Platelets (Bld) [#/Vol] 234 10*3/uL Normal 150-400 [facility] Comment on above: Performed By: #### 4 [id number] ####[facility] [address] [place], [place] [address] Glenn Gudino M.D. [id number] RBC (Bld) [#/Vol] 2.65 10*6/uL Low 4.00-5.20 [facility] Comment on above: Performed By: #### 4 5218 ####[facility] [address] [place], [place] [address] Glenn Gudino M.D. [id number] WBC (Bld) [#/Vol] 27.78 10*3/uL High 4.50-11.00 [facility] Comment on above: Performed By: #### 4 [id number] ####[facility] [address] [place], [place] [address] Glenn Gudino M.D. [id number] CONSULTon 02-21-2024 CONSULT Normal [facility] MAGNESIUM LEVELon 02-21-2024 Magnesium [Mass/Vol] 1.8 mg/dL Normal 1.6-2.4 [facility] Comment on above: Performed By: #### 4 6109 ####[facility] [address] [place] [address] Glenn Gudino M.D. [id number] [facility] Glucose [Mass/Vol] 85 mg/dL Normal 65-99 [facility] Comment on above: Performed By: #### 4 6932 ####PENDING SALE TO [facility] [address] [place] [address] [id number] RMHPOC RENAL FUNCTION PANELon 02-20 Albumin [Mass/Vol] 2.2 g/dL Low 3.2-5.2 [facility] Comment on above: Order Comment: [facility] has implemented the eGFR calculation approach that does not have a coefficient for race that conforms to the NKF-ASN Task Force Recommendations. Performed By: #### 4 6449 ####[facility] [address] [place], [place] [address] Glenn Gudino M.D. [id number] Anion gap [Moles/Vol] 18 mmol/L Normal 10-20 [facility] Comment on above: Order Comment: [facility] has implemented the eGFR calculation approach that does not have a coefficient for race that conforms to the NKF-ASN Task Force Recommendations. Performed By: #### 4 6449 ####[facility] [address] [place], [place] [address] Glenn Gudino M.D. [id number] Calcium [Mass/Vol] 7.8 mg/dL Low 8.4-10.2 [facility] Comment on above: Order Comment: [facility] has implemented the eGFR calculation approach that does not have a coefficient for race that conforms to the NKF-ASN Task Force Recommendations. Performed By: #### 4 6449 ####[facility] [address] [place] [address] Glenn Gudino M.D. [id number] Chloride [Moles/Vol] 99 mmol/L Normal 98-108 [facility] Comment on above: Order Comment: [facility] has implemented the eGFR calculation approach that does not have a coefficient for race that conforms to the NKF-ASN Task Force Recommendations. Performed By: #### 4 6449 ####[facility] [address] [place] [address] Glenn Gudino M.D. [id number] Creatinine [Mass/Vol] 2.59 mg/dL High 0.60-1.10 [facility] Comment on above: Order Comment: [facility] has implemented the eGFR calculation approach that does not have a coefficient for race that conforms to the NKF-ASN Task Force Recommendations. Performed By: #### 4 6449 ####[facility] [address] [place] [address] Glenn Gudino M.D. [id number] EGFR 21 mL/min/1.73 m2 Low >=60 [facility] Comment on above: Order Comment: [facility] has implemented the eGFR calculation approach that does not have a coefficient for race that conforms to the NKF-ASN Task Force Recommendations. Result Comment: Joi mated GFR was calculated using the 2020 CKD-EPI creatinine equation. Performed By: #### 4 6449 ####[facility] [address] [place] [address] Glenn Gudino M.D. [id number] Glucose [Mass/Vol] 64 mg/dL Low 65-99 [facility] Comment on above: Order Comment: [facility] has implemented the eGFR calculation approach that does not have a coefficient for race that conforms to the NKF-ASN Task Force Recommendations. Performed By: #### 4 6449 ####[facility] [address] [place] [address] Glenn Gudino M.D. [id number] HCO3 (Bld) [Moles/Vol] 23 mmol/L Normal 21-32 [facility] Comment on above: Order Comment: [facility] has implemented the eGFR calculation approach that does not have a coefficient for race that conforms to the NKF-ASN Task Force Recommendations. Performed By: #### 4 6449 ####[facility] [address] [place] [address] Glenn Gudino M.D. [id number] Phosphate [Mass/Vol] 5.1 mg/dL High 2.8-4.1 [facility] Comment on above: Order Comment: [facility] has implemented the eGFR calculation approach that does not have a coefficient for race that conforms to the NKF-ASN Task Force Recommendations. Performed By: #### 4 6449 ####[facility] [address] [place] [address] Glenn Gudino M.D. [id number] Potassium [Moles/Vol] 4.0 mmol/L Normal 3.5-5.1 [facility] Comment on above: Order Comment: [facility] has implemented the eGFR calculation approach that does not have a coefficient for race that conforms to the NKF-ASN Task Force Recommendations. Performed By: #### 4 6449 ####[facility] [address] [place] [address] Glenn Gudino M.D. [id number] Sodium [Moles/Vol] 136 mmol/L Normal 135-145 [facility] Comment on above: Order Comment: [facility] has implemented the eGFR calculation approach that does not have a coefficient for race that conforms to the NKF-ASN Task Force Recommendations. Performed By: #### 4 6449 ####[facility] [address] [place] [address] Glenn Gudino M.D. [id number] Urea nitrogen [Mass/Vol] 39 mg/dL High 8-25 [facility] Comment on above: Order Comment: [facility] has implemented the eGFR calculation approach that does not have a coefficient for race that conforms to the NKF-ASN Task Force Recommendations. Performed By: #### 4 6449 ####[facility] [address] [place], [place] [address] Glenn Gudino M.D. [id number] Urea nitrogen/Creatinine [Mass ratio] 15.1 mg/mg Normal 10.0-20.0 [facility] Comment on above: Order Comment: [facility] has implemented the eGFR calculation approach that does not have a coefficient for race that conforms to the NKF-ASN Task Force Recommendations. Performed By: #### 4 6449 ####[facility] [address] [place] [address] Glenn Gudino M.D. [id number] TYPE AND SCREENon 02-21-2024 TYPE AND SCREEN ABORH: O Positive AB SCREEN: Positive EXPIRATION DATE: 02/24/2024 23:59 EST Normal [facility] Comment on above: Performed By: #### 4 6619 ####PENDING SALE TO [facility] [address] [place] [address] Nurys Oneill MD [id number] RMS URINE AEROBIC CULTUREon 01-28 URINE AEROBIC CULTURE URINE CULTURE Three or more morphotypes suggesting probable contamination during specimen (urine) collection. Suggest repeat if clinically indicated Normal [facility] Comment on above: Performed By: #### 4 4053 ####[facility] [address] [place], [place] [address] Glenn Gudino M.D. [id number] CALCIUM, IONIZEDon CALCIUM IONIZED 4.5 mg/dL Normal 4.5-5.3 [facility] Comment on above: Order Comment: Serum , non-CRRT source. Performed By: #### 4 5190 ####[facility] [address] [place], [place] [address] Glenn Gudino M.D. [id number] CBCon 02-20-2024 AUTO NRBC 0.0 % Normal [facility] Comment on above: Performed By: #### 4 5218 ####[facility] [address] [place], [place] [address] Glenn Gudino M.D. [id number] AUTO NRBC ABS COUNT 0.00 K/mcL Normal 0.00-0.00 [facility] Comment on above: Performed By: #### 4 [id number] ####[facility] [address] [place] [address] Glenn Gudino M.D. [id number] Erythrocyte distribution width (RBC) [Ratio] 18.7 % High 11.6-14.8 [facility] Comment on above: Performed By: #### 4 5218 ####[facility] [address] [place] [address] Glenn Gudino M.D. [id number] Hematocrit (Bld) [Volume fraction] 27.2 % Low 36.0-46.0 [facility] Comment on above: Performed By: #### 4 5218 ####[facility] [address] [place] [address] Glenn Gudino M.D. [id number] Hemoglobin (Bld) [Mass/Vol] 8.6 g/dL Low 12.0-16.0 [facility] Comment on above: Performed By: #### 4 5218 ####[facility] [address] [place], [place] [address] Glenn Gudino M.D. [id number] MCH (RBC) [Entitic mass] 28.9 pg Normal 26.0-34.0 [facility] Comment on above: Performed By: #### 4 5218 ####[facility] [address] [place] [address] Glenn Gudino M.D. [id number] MCV (RBC) [Entitic vol] 91.3 fL Normal 80.0-100.0 [facility] Comment on above: Performed By: #### 4 5269 ####[facility] [address] [place] [address] Glenn Gudino M.D. [id number] MEAN CORPUSCULAR HEMOGLOBIN CONC 31.6 g/dL Normal 31.0-37.0 [facility] Comment on above: Performed By: #### 4 5218 ####[facility] [address] [place] [address] Glenn Gudino M.D. [id number] Platelet mean volume (Bld) [Entitic vol] 9.2 fL Low 9.4-12.4 [facility] Comment on above: Performed By: #### 4 [id number] ####[facility] [address] [place] [address] Glenn Gudino M.D. [id number] Platelets (Bld) [#/Vol] 244 10*3/uL Normal 150-400 [facility] Comment on above: Performed By: #### 4 5218 ####[facility] [address] [place], [place] [address] Glenn Gudino M.D. [id number] RBC (Bld) [#/Vol] 2.98 10*6/uL Low 4.00-5.20 [facility] Comment on above: Performed By: #### 4 5218 ####[facility] [address] [place], [place] [address] Glenn Gudino M.D. [id number] WBC (Bld) [#/Vol] 21.11 10*3/uL High 4.50-11.00 [facility] Comment on above: Performed By: #### 4 5218 ####[facility] [address] [place] [address] Glenn Gudino M.D. [id number] MAGNESIUM LEVELon 02-20-2024 Magnesium [Mass/Vol] 2.0 mg/dL Normal 1.6-2.4 [facility] Comment on above: Performed By: #### 4 6109 ####[facility] [address] [place], [place] [address] Glenn Gudino M.D. [id number] RENAL FUNCTION PANELon 02-19 Albumin [Mass/Vol] 2.6 g/dL Low 3.2-5.2 [facility] Comment on above: Order Comment: [facility] has implemented the eGFR calculation approach that does not have a coefficient for race that conforms to the NKF-ASN Task Force Recommendations. Performed By: #### 4 6449 ####[facility] [address] [place] [address] Glenn Gudino M.D. [id number] Anion gap [Moles/Vol] 16 mmol/L Normal 10-20 [facility] Comment on above: Order Comment: [facility] has implemented the eGFR calculation approach that does not have a coefficient for race that conforms to the NKF-ASN Task Force Recommendations. Performed By: #### 4 6449 ####[facility] [address] [place] [address] Glenn Gudino M.D. [id number] Calcium [Mass/Vol] 8.2 mg/dL Low 8.4-10.2 [facility] Comment on above: Order Comment: [facility] has implemented the eGFR calculation approach that does not have a coefficient for race that conforms to the NKF-ASN Task Force Recommendations. Performed By: #### 4 6449 ####[facility] [address] [place] [address] Glenn Gudino M.D. [id number] Chloride [Moles/Vol] 96 mmol/L Low 98-108 [facility] Comment on above: Order Comment: [facility] has implemented the eGFR calculation approach that does not have a coefficient for race that conforms to the NKF-ASN Task Force Recommendations. Performed By: #### 4 6449 ####[facility] [address] [place] [address] Glenn Gudino M.D. [id number] Creatinine [Mass/Vol] 1.96 mg/dL High 0.60-1.10 [facility] Comment on above: Order Comment: [facility] has implemented the eGFR calculation approach that does not have a coefficient for race that conforms to the NKF-ASN Task Force Recommendations. Performed By: #### 4 6449 ####[facility] [address] [place], [place] [address] Glenn Gudino M.D. [id number] EGFR 29 mL/min/1.73 m2 Low >=60 [facility] Comment on above: Order Comment: [facility] has implemented the eGFR calculation approach that does not have a coefficient for race that conforms to the NKF-ASN Task Force Recommendations. Result Comment: Joi mated GFR was calculated using the 2020 CKD-EPI creatinine equation. Performed By: #### 4 6449 ####[facility] [address] [place], [place] [address] Glenn Gudino M.D. [id number] Glucose [Mass/Vol] 99 mg/dL Normal 65-99 [facility] Comment on above: Order Comment: [facility] has implemented the eGFR calculation approach that does not have a coefficient for race that conforms to the NKF-ASN Task Force Recommendations. Performed By: #### 4 6449 ####[facility] [address] [place], [place] [address] Glenn Gudino M.D. [id number] HCO3 (Bld) [Moles/Vol] 26 mmol/L Normal 21-32 [facility] Comment on above: Order Comment: [facility] has implemented the eGFR calculation approach that does not have a coefficient for race that conforms to the NKF-ASN Task Force Recommendations. Performed By: #### 4 6449 ####[facility] [address] [place], [place] [address] Glenn Gudino M.D. [id number] Phosphate [Mass/Vol] 3.4 mg/dL Normal 2.8-4.1 [facility] Comment on above: Order Comment: [facility] has implemented the eGFR calculation approach that does not have a coefficient for race that conforms to the NKF-ASN Task Force Recommendations. Performed By: #### 4 6449 ####[facility] [address] [place], [place] [address] Glenn Gudino M.D. [id number] Potassium [Moles/Vol] 4.2 mmol/L Normal 3.5-5.1 [facility] Comment on above: Order Comment: [facility] has implemented the eGFR calculation approach that does not have a coefficient for race that conforms to the NKF-ASN Task Force Recommendations. Result Comment: Marisol leblanc Hemolyzed Performed By: #### 4 6449 ####[facility] [address] [place], [place] [address] Glenn Gudino M.D. [id number] Sodium [Moles/Vol] 134 mmol/L Low 135-145 [facility] Comment on above: Order Comment: [facility] has implemented the eGFR calculation approach that does not have a coefficient for race that conforms to the NKF-ASN Task Force Recommendations. Performed By: #### 4 6449 ####[facility] [address] [place], [place] [address] Glenn Gudino M.D. [id number] Urea nitrogen [Mass/Vol] 27 mg/dL High 8-25 [facility] Comment on above: Order Comment: [facility] has implemented the eGFR calculation approach that does not have a coefficient for race that conforms to the NKF-ASN Task Force Recommendations. Performed By: #### 4 6449 ####[facility] [address] [place], [place] [address] Glenn Gudino M.D. [id number] Urea nitrogen/Creatinine [Mass ratio] 13.8 mg/mg Normal 10.0-20.0 [facility] Comment on above: Order Comment: [facility] has implemented the eGFR calculation approach that does not have a coefficient for race that conforms to the NKF-ASN Task Force Recommendations. Performed By: #### 4 6449 ####[facility] [address] [place], [place] [address] Glenn Gudino M.D. [id number] XR CHEST PA/APon 02-20-2024 XR CHEST PA/AP Normal [facility] Comment on above: Order Comment: Injur y/Trauma or Illness?:Illness/OtherHow long have you had these symptoms (acute/chronic)?:UnknownReason for exam?:pleural effusionHistory of cancer?:uSurgeries, chemotherapy, or radiation?:uType of Exam?:UnknownAdditional signs and symptoms?:no CALCIUM, IONIZEDon CALCIUM IONIZED 4.7 mg/dL Normal 4.5-5.3 [facility] Comment on above: Order Comment: Serum , non-CRRT source. Performed By: #### 4 5190 ####[facility] [address] [place] [address] Glenn Gudino M.D. [id number] CBCon 02-19-2024 AUTO NRBC 0.0 % Normal [facility] Comment on above: Performed By: #### 4 [id number] ####[facility] [address] [place], [place] [address] Glenn Gudino M.D. [id number] AUTO NRBC ABS COUNT 0.00 K/mcL Normal 0.00-0.00 [facility] Comment on above: Performed By: #### 4 [id number] ####[facility] [address] [place], [place] [address] Glenn Gudino M.D. [id number] Erythrocyte distribution width (RBC) [Ratio] 19.5 % High 11.6-14.8 [facility] Comment on above: Performed By: #### 4 [id number] ####[facility] [address] [place], [place] [address] Glenn Gudino M.D. [id number] Hematocrit (Bld) [Volume fraction] 25.3 % Low 36.0-46.0 [facility] Comment on above: Performed By: #### 4 [id number] ####[facility] [address] [place] [address] Glenn Gudino M.D. [id number] Hemoglobin (Bld) [Mass/Vol] 8.0 g/dL Low 12.0-16.0 [facility] Comment on above: Performed By: #### 4 [id number] ####[facility] [address] [place] [address] Glnen Gudino M.D. [id number] MCH (RBC) [Entitic mass] 29.1 pg Normal 26.0-34.0 [facility] Comment on above: Performed By: #### 4 [id number] ####[facility] [address] [place] [address] Glenn Gudino M.D. [id number] MCV (RBC) [Entitic vol] 92.0 fL Normal 80.0-100.0 [facility] Comment on above: Performed By: #### 4 5218 ####[facility] [address] [place] [address] Glenn Gudino M.D. [id number] MEAN CORPUSCULAR HEMOGLOBIN CONC 31.6 g/dL Normal 31.0-37.0 [facility] Comment on above: Performed By: #### 4 [id number] ####[facility] [address] [place], [place] [address] Glenn Gudino M.D. [id number] Platelet mean volume (Bld) [Entitic vol] 9.7 fL Normal 9.4-12.4 [facility] Comment on above: Performed By: #### 4 [id number] ####[facility] [address] [place], [place] [address] Glenn Gudino M.D. [id number] Platelets (Bld) [#/Vol] 235 10*3/uL Normal 150-400 [facility] Comment on above: Performed By: #### 4 [id number] ####[facility] [address] [place] [address] Glenn Gudino M.D. [id number] RBC (Bld) [#/Vol] 2.75 10*6/uL Low 4.00-5.20 [facility] Comment on above: Performed By: #### 4 [id number] ####[facility] [address] [place] [address] Glenn Gudino M.D. [id number] WBC (Bld) [#/Vol] 9.65 10*3/uL Normal 4.50-11.00 [facility] Comment on above: Performed By: #### 4 [id number] ####[facility] [address] [place], [place] [address] Glenn Gudino M.D. [id number] MAGNESIUM LEVELon 02-19-2024 Magnesium [Mass/Vol] 1.8 mg/dL Normal 1.6-2.4 [facility] Comment on above: Performed By: #### 4 6109 ####[facility] [address] [place], [place] [address] Glenn Gudino M.D. [id number] [facility] Glucose [Mass/Vol] 133 mg/dL High 65-99 [facility] Comment on above: Performed By: #### 4 6932 ####PENDING S[facility] TO [facility] [address] [place] [address] [id number] RMHPOC RENAL FUNCTION PANELon 02-18 Albumin [Mass/Vol] 2.3 g/dL Low 3.2-5.2 [facility] Comment on above: Order Comment: [facility] has implemented the eGFR calculation approach that does not have a coefficient for race that conforms to the NKF-ASN Task Force Recommendations. Performed By: #### 4 6449 ####[facility] [address] [place] [address] Glenn Gudino M.D. [id number] Anion gap [Moles/Vol] 15 mmol/L Normal 10-20 [facility] Comment on above: Order Comment: [facility] has implemented the eGFR calculation approach that does not have a coefficient for race that conforms to the NKF-ASN Task Force Recommendations. Performed By: #### 4 6449 ####[facility] [address] [place] [address] Glenn Gudino M.D. [id number] Calcium [Mass/Vol] 8.5 mg/dL Normal 8.4-10.2 [facility] Comment on above: Order Comment: [facility] has implemented the eGFR calculation approach that does not have a coefficient for race that conforms to the NKF-ASN Task Force Recommendations. Performed By: #### 4 6449 ####[facility] [address] [place] [address] Glenn Gudino M.D. [id number] Chloride [Moles/Vol] 99 mmol/L Normal 98-108 [facility] Comment on above: Order Comment: [facility] has implemented the eGFR calculation approach that does not have a coefficient for race that conforms to the NKF-ASN Task Force Recommendations. Performed By: #### 4 6449 ####[facility] [address] [place] [address] Glenn Gudino M.D. [id number] Creatinine [Mass/Vol] 2.11 mg/dL High 0.60-1.10 [facility] Comment on above: Order Comment: [facility] has implemented the eGFR calculation approach that does not have a coefficient for race that conforms to the NKF-ASN Task Force Recommendations. Performed By: #### 4 6449 ####[facility] [address] [place], [place] [address] Glenn Gudino M.D. [id number] EGFR 26 mL/min/1.73 m2 Low >=60 [facility] Comment on above: Order Comment: [facility] has implemented the eGFR calculation approach that does not have a coefficient for race that conforms to the NKF-ASN Task Force Recommendations. Result Comment: Joi mated GFR was calculated using the 2020 CKD-EPI creatinine equation. Performed By: #### 4 6449 ####[facility] [address] [place], [place] [address] Glenn Gudino M.D. [id number] Glucose [Mass/Vol] 127 mg/dL High 65-99 [facility] Comment on above: Order Comment: [facility] has implemented the eGFR calculation approach that does not have a coefficient for race that conforms to the NKF-ASN Task Force Recommendations. Performed By: #### 4 6449 ####[facility] [address] [place] [address] Glenn Gudino M.D. [id number] HCO3 (Bld) [Moles/Vol] 28 mmol/L Normal 21-32 [facility] Comment on above: Order Comment: [facility] has implemented the eGFR calculation approach that does not have a coefficient for race that conforms to the NKF-ASN Task Force Recommendations. Performed By: #### 4 6449 ####[facility] [address] [place] [address] Glenn Gudino M.D. [id number] Phosphate [Mass/Vol] 4.5 mg/dL High 2.8-4.1 [facility] Comment on above: Order Comment: [facility] has implemented the eGFR calculation approach that does not have a coefficient for race that conforms to the NKF-ASN Task Force Recommendations. Performed By: #### 4 6449 ####[facility] [address] [place] [address] Glenn Gudino M.D. [id number] Potassium [Moles/Vol] 5.5 mmol/L High 3.5-5.1 [facility] Comment on above: Order Comment: [facility] has implemented the eGFR calculation approach that does not have a coefficient for race that conforms to the NKF-ASN Task Force Recommendations. Result Comment: Slcezar htly Hemolyzed Performed By: #### 4 6449 ####[facility] [address] [place] [address] Glenn Gudino M.D. [id number] Sodium [Moles/Vol] 136 mmol/L Normal 135-145 [facility] Comment on above: Order Comment: [facility] has implemented the eGFR calculation approach that does not have a coefficient for race that conforms to the NKF-ASN Task Force Recommendations. Performed By: #### 4 6449 ####[facility] [address] [place], [place] [address] Glenn Gudino M.D. [id number] Urea nitrogen [Mass/Vol] 39 mg/dL High 8-25 [facility] Comment on above: Order Comment: [facility] has implemented the eGFR calculation approach that does not have a coefficient for race that conforms to the NKF-ASN Task Force Recommendations. Performed By: #### 4 6449 ####[facility] [address] [place] [address] Glenn Gudino M.D. [id number] Urea nitrogen/Creatinine [Mass ratio] 18.5 mg/mg Normal 10.0-20.0 [facility] Comment on above: Order Comment: [facility] has implemented the eGFR calculation approach that does not have a coefficient for race that conforms to the NKF-ASN Task Force Recommendations. Performed By: #### 4 6449 ####[facility] [address] [place] [address] Glenn Gudino M.D. [id number] XR CHEST PA/APon 02-19-2024 XR CHEST PA/AP Normal [facility] Comment on above: Order Comment: Injur y/Trauma or Illness?:Illness/OtherHow long have you had these symptoms (acute/chronic)?:AcuteReason for exam?:pleural effusionHistory of cancer?:uSurgeries, chemotherapy, or radiation?:uType of Exam?:Subsequent/Follow-upAdditional signs and symptoms?:pleural effusion ANTIBODY IDENTIFICATION-FYAo n 02-18-2024 ANTIBODY IDENTIFICATION-FYA Normal [facility] Comment on above: Performed By: #### 4 6427_Anti-Fya ####PENDING SALE TO [facility] [address] [place] [address] Nurys Oneill MD [id number] RMHTS CBCon 02-18-2024 AUTO NRBC 0.0 % Normal [facility] Comment on above: Performed By: #### 4 5218 ####[facility] [address] [place] [address] Glenn Gudino M.D. [id number] AUTO NRBC ABS COUNT 0.00 K/mcL Normal 0.00-0.00 [facility] Comment on above: Performed By: #### 4 5218 ####[facility] [address] [place] [address] Glenn Gudino M.D. [id number] Erythrocyte distribution width (RBC) [Ratio] 19.9 % High 11.6-14.8 [facility] Comment on above: Performed By: #### 4 5218 ####[facility] [address] [place] [address] Glenn Gudino M.D. [id number] Hematocrit (Bld) [Volume fraction] 27.8 % Low 36.0-46.0 [facility] Comment on above: Performed By: #### 4 [id number] ####[facility] [address] [place] [address] Glenn Gudino M.D. [id number] Hemoglobin (Bld) [Mass/Vol] 8.9 g/dL Low 12.0-16.0 [facility] Comment on above: Performed By: #### 4 5218 ####[facility] [address] [place] [address] Glenn Gudino M.D. [id number] MCH (RBC) [Entitic mass] 29.6 pg Normal 26.0-34.0 [facility] Comment on above: Performed By: #### 4 5218 ####[facility] [address] [place] [address] Glenn Gudino M.D. [id number] MCV (RBC) [Entitic vol] 92.4 fL Normal 80.0-100.0 [facility] Comment on above: Performed By: #### 4 5218 ####[facility] [address] [place], [place] [address] Glenn Gudino M.D. [id number] MEAN CORPUSCULAR HEMOGLOBIN CONC 32.0 g/dL Normal 31.0-37.0 [facility] Comment on above: Performed By: #### 4 5218 ####[facility] [address] [place], [place] [address] Glenn Gudino M.D. [id number] Platelet mean volume (Bld) [Entitic vol] 9.6 fL Normal 9.4-12.4 [facility] Comment on above: Performed By: #### 4 [id number] ####[facility] [address] [place], [place] [address] Glenn Gudino M.D. [id number] Platelets (Bld) [#/Vol] 222 10*3/uL Normal 150-400 [facility] Comment on above: Performed By: #### 4 5218 ####[facility] [address] [place], [place] [address] Glenn Gudino M.D. [id number] RBC (Bld) [#/Vol] 3.01 10*6/uL Low 4.00-5.20 [facility] Comment on above: Performed By: #### 4 5218 ####[facility] [address] [place] [address] Glenn Gudino M.D. [id number] WBC (Bld) [#/Vol] 14.78 10*3/uL High 4.50-11.00 [facility] Comment on above: Performed By: #### 4 5218 ####[facility] [address] [place] [address] Glenn Gudino M.D. [id number] MAGNESIUM LEVELon 02-18-2024 Magnesium [Mass/Vol] 1.9 mg/dL Normal 1.6-2.4 [facility] Comment on above: Performed By: #### 4 6109 ####[facility] [address] [place] [address] Glenn Gudino M.D. [id number] [facility] Glucose [Mass/Vol] 114 mg/dL High 65-99 [facility] Comment on above: Performed By: #### 4 6932 ####[facility] [address] [place] [address] [id number] [facility]-17 Albumin [Mass/Vol] 2.3 g/dL Low 3.2-5.2 [facility] Comment on above: Order Comment: [facility] has implemented the eGFR calculation approach that does not have a coefficient for race that conforms to the NKF-ASN Task Force Recommendations. Performed By: #### 4 6449 ####[facility] [address] [place], [place] [address] Glenn Gudino M.D. [id number] Anion gap [Moles/Vol] 16 mmol/L Normal 10-20 [facility] Comment on above: Order Comment: [facility] has implemented the eGFR calculation approach that does not have a coefficient for race that conforms to the NKF-ASN Task Force Recommendations. Performed By: #### 4 6449 ####[facility] [address] [place] [address] Glenn Gudino M.D. [id number] Calcium [Mass/Vol] 8.2 mg/dL Low 8.4-10.2 [facility] Comment on above: Order Comment: [facility] has implemented the eGFR calculation approach that does not have a coefficient for race that conforms to the NKF-ASN Task Force Recommendations. Performed By: #### 4 6449 ####[facility] [address] [place] [address] Glenn Gudino M.D. [id number] Chloride [Moles/Vol] 96 mmol/L Low 98-108 [facility] Comment on above: Order Comment: [facility] has implemented the eGFR calculation approach that does not have a coefficient for race that conforms to the NKF-ASN Task Force Recommendations. Performed By: #### 4 6449 ####[facility] [address] [place] [address] Glenn Gudino M.D. [id number] Creatinine [Mass/Vol] 2.72 mg/dL High 0.60-1.10 [facility] Comment on above: Order Comment: [facility] has implemented the eGFR calculation approach that does not have a coefficient for race that conforms to the NKF-ASN Task Force Recommendations. Performed By: #### 4 6449 ####[facility] [address] [place] [address] Glenn Gudino M.D. [id number] EGFR 19 mL/min/1.73 m2 Low >=60 [facility] Comment on above: Order Comment: [facility] has implemented the eGFR calculation approach that does not have a coefficient for race that conforms to the NKF-ASN Task Force Recommendations. Result Comment: Joi mated GFR was calculated using the 2020 CKD-EPI creatinine equation. Performed By: #### 4 6449 ####[facility] [address] [place] [address] Glenn Gudino M.D. [id number] Glucose [Mass/Vol] 159 mg/dL High 65-99 [facility] Comment on above: Order Comment: [facility] has implemented the eGFR calculation approach that does not have a coefficient for race that conforms to the NKF-ASN Task Force Recommendations. Performed By: #### 4 6449 ####[facility] [address] [place], [place] [address] Glenn Gudino M.D. [id number] HCO3 (Bld) [Moles/Vol] 25 mmol/L Normal 21-32 [facility] Comment on above: Order Comment: [facility] has implemented the eGFR calculation approach that does not have a coefficient for race that conforms to the NKF-ASN Task Force Recommendations. Performed By: #### 4 6449 ####[facility] [address] [place], [place] [address] Glenn Gudino M.D. [id number] Phosphate [Mass/Vol] 5.4 mg/dL High 2.8-4.1 [facility] Comment on above: Order Comment: [facility] has implemented the eGFR calculation approach that does not have a coefficient for race that conforms to the NKF-ASN Task Force Recommendations. Performed By: #### 4 6449 ####[facility] [address] [place], [place] [address] Glenn Gudino M.D. [id number] Potassium [Moles/Vol] 6.9 mmol/L Off scale high 3.5-5.1 [facility] Comment on above: Order Comment: [facility] has implemented the eGFR calculation approach that does not have a coefficient for race that conforms to the NKF-ASN Task Force Recommendations. Performed By: #### 4 6449 ####[facility] [address] [place], [place] [address] Glenn Gudino M.D. [id number] Sodium [Moles/Vol] 130 mmol/L Low 135-145 [facility] Comment on above: Order Comment: [facility] has implemented the eGFR calculation approach that does not have a coefficient for race that conforms to the NKF-ASN Task Force Recommendations. Performed By: #### 4 6449 ####[facility] [address] [place] [address] Glenn Gudino M.D. [id number] Urea nitrogen [Mass/Vol] 56 mg/dL High 8-25 [facility] Comment on above: Order Comment: [facility] has implemented the eGFR calculation approach that does not have a coefficient for race that conforms to the NKF-ASN Task Force Recommendations. Performed By: #### 4 6449 ####[facility] [address] [place] [address] Glenn Gudino M.D. [id number] Urea nitrogen/Creatinine [Mass ratio] 20.6 mg/mg High 10.0-20.0 [facility] Comment on above: Order Comment: [facility] has implemented the eGFR calculation approach that does not have a coefficient for race that conforms to the NKF-ASN Task Force Recommendations. Performed By: #### 4 6449 ####[facility] [address] [place] [address] Glenn Gudino M.D. [id number] TYPE AND SCREENon 02-18-2024 TYPE AND SCREEN Normal [facility] Comment on above: Performed By: #### 4 6619 ####PENDING S[facility] TO [facility] [address] [place] [address] Nurys Oneill MD [id number] HTS CALCIUM, IONIZEDon CALCIUM IONIZED 4.5 mg/dL Normal 4.5-5.3 [facility] Comment on above: Order Comment: Serum , non-CRRT source. Performed By: #### 4 5190 ####[facility] [address] [place] [address] Glenn Gudino M.D. [id number] CBCon 02-17-2024 AUTO NRBC 0.0 % Normal [facility] Comment on above: Performed By: #### 4 5218 ####[facility] [address] [place] [address] Glenn Gudino M.D. [id number] AUTO NRBC ABS COUNT 0.00 K/mcL Normal 0.00-0.00 [facility] Comment on above: Performed By: #### 4 5218 ####[facility] [address] [place] [address] Glenn Gudino M.D. [id number] Erythrocyte distribution width (RBC) [Ratio] 20.7 % High 11.6-14.8 [facility] Comment on above: Performed By: #### 4 5218 ####[facility] [address] [place] [address] Glenn Gudino M.D. [id number] Hematocrit (Bld) [Volume fraction] 22.3 % Low 36.0-46.0 [facility] Comment on above: Performed By: #### 4 5218 ####[facility] [address] [place], [place] [address] Glenn Gudino M.D. [id number] Hemoglobin (Bld) [Mass/Vol] 6.9 g/dL Off scale low 12.0-16.0 [facility] Comment on above: Result Comment: Resu lts called and read back verified by:.[id number] Performed By: #### 4 5218 ####[facility] [address] [place], [place] [address] Glenn Gudino M.D. [id number] MCH (RBC) [Entitic mass] 29.6 pg Normal 26.0-34.0 [facility] Comment on above: Performed By: #### 4 5218 ####[facility] [address] [place] [address] Glenn Gudino M.D. [id number] MCV (RBC) [Entitic vol] 95.7 fL Normal 80.0-100.0 [facility] Comment on above: Performed By: #### 4 5218 ####[facility] [address] [place], [place] [address] Glenn Gudino M.D. [id number] MEAN CORPUSCULAR HEMOGLOBIN CONC 30.9 g/dL Low 31.0-37.0 [facility] Comment on above: Performed By: #### 4 5218 ####[facility] [address] [place], [place] [address] Glenn Gudino M.D. [id number] Platelet mean volume (Bld) [Entitic vol] 10.0 fL Normal 9.4-12.4 [facility] Comment on above: Performed By: #### 4 [id number] ####[facility] [address] [place] [address] Glenn Gudino M.D. [id number] Platelets (Bld) [#/Vol] 187 10*3/uL Normal 150-400 [facility] Comment on above: Performed By: #### 4 5218 ####[facility] [address] [place] [address]25 Glenn Gudino M.D. [id number] RBC (Bld) [#/Vol] 2.33 10*6/uL Low 4.00-5.20 [facility] Comment on above: Performed By: #### 4 5218 ####[facility] [address] [place] [address] Glenn Gudino M.D. [id number] WBC (Bld) [#/Vol] 13.82 10*3/uL High 4.50-11.00 [facility] Comment on above: Performed By: #### 4 5218 ####[facility] [address] [place] [address]642 Glenn Gudino M.D. [id number] HEMOGLOBIN AND HEMATOCRITon 02-17-2024 Hematocrit (Bld) [Volume fraction] 27.0 % Low 36.0-46.0 [facility] Comment on above: Performed By: #### 4 6909 ####[facility] [address] [place] [address] Glenn Gudino M.D. [id number] Hemoglobin (Bld) [Mass/Vol] 8.5 g/dL Low 12.0-16.0 [facility] Comment on above: Performed By: #### 4 6909 ####[facility] [address] [place], [place] [address] Glenn Gudino M.D. [id number] MAGNESIUM LEVELon 02-17-2024 Magnesium [Mass/Vol] 2.0 mg/dL Normal 1.6-2.4 [facility] Comment on above: Performed By: #### 4 6109 ####[facility] [address] [place], [place] [address] Glenn Gudino M.D. [id number] [facility] Glucose [Mass/Vol] 116 mg/dL High 65-99 [facility] Comment on above: Performed By: #### 4 6913 ####PENDING S[facility] TO [facility] [address] [place] [address] [id number] RMHPOC Glucose [Mass/Vol] 147 mg/dL High 65-99 [facility] Comment on above: Performed By: #### 4 1198 ####PENDING S[facility] [address] [place] [address] [id number] [facility] RENAL FUNCTION PANELon 02-16 Albumin [Mass/Vol] 2.1 g/dL Low 3.2-5.2 [facility] Comment on above: Order Comment: [facility] has implemented the eGFR calculation approach that does not have a coefficient for race that conforms to the NKF-ASN Task Force Recommendations. Performed By: #### 4 6449 ####[facility] [address] [place] [address] Glenn Gudino M.D. [id number] Anion gap [Moles/Vol] 12 mmol/L Normal 10-20 [facility] Comment on above: Order Comment: [facility] has implemented the eGFR calculation approach that does not have a coefficient for race that conforms to the NKF-ASN Task Force Recommendations. Performed By: #### 4 6449 ####[facility] [address] [place] [address] Glenn Gudino M.D. [id number] Calcium [Mass/Vol] 7.7 mg/dL Low 8.4-10.2 [facility] Comment on above: Order Comment: [facility] has implemented the eGFR calculation approach that does not have a coefficient for race that conforms to the NKF-ASN Task Force Recommendations. Performed By: #### 4 6449 ####[facility] [address] [place] [address] 18194 Glenn Gudino M.D. [id number] Chloride [Moles/Vol] 97 mmol/L Low 98-108 [facility] Comment on above: Order Comment: [facility] has implemented the eGFR calculation approach that does not have a coefficient for race that conforms to the NKF-ASN Task Force Recommendations. Performed By: #### 4 6449 ####[facility] [address] [place] [address] 83112 Glenn Gudino M.D. [id number] Creatinine [Mass/Vol] 2.06 mg/dL High 0.60-1.10 [facility] Comment on above: Order Comment: [facility] has implemented the eGFR calculation approach that does not have a coefficient for race that conforms to the NKF-ASN Task Force Recommendations. Performed By: #### 4 6449 ####[facility] [address] [place] [address] 97121 Glenn Gudino M.D. [id number] EGFR 27 mL/min/1.73 m2 Low >=60 [facility] Comment on above: Order Comment: [facility] has implemented the eGFR calculation approach that does not have a coefficient for race that conforms to the NKF-ASN Task Force Recommendations. Result Comment: Joi mated GFR was calculated using the 2020 CKD-EPI creatinine equation. Performed By: #### 4 6449 ####[facility] [address] [place] [address] 05422 Glenn Gudino M.D. [id number] Glucose [Mass/Vol] 145 mg/dL High 65-99 [facility] Comment on above: Order Comment: [facility] has implemented the eGFR calculation approach that does not have a coefficient for race that conforms to the NKF-ASN Task Force Recommendations. Performed By: #### 4 6449 ####[facility] [address] [place] [address] 20001 Glenn Gudino M.D. [id number] HCO3 (Bld) [Moles/Vol] 28 mmol/L Normal 21-32 [facility] Comment on above: Order Comment: [facility] has implemented the eGFR calculation approach that does not have a coefficient for race that conforms to the NKF-ASN Task Force Recommendations. Performed By: #### 4 6449 ####[facility] [address] [place] [address] 89862 Glenn Gudino M.D. [id number] Phosphate [Mass/Vol] 3.6 mg/dL Normal 2.8-4.1 [facility] Comment on above: Order Comment: [facility] has implemented the eGFR calculation approach that does not have a coefficient for race that conforms to the NKF-ASN Task Force Recommendations. Performed By: #### 4 6449 ####[facility] [address] [place] [address] 08408 Glenn Gudino M.D. [id number] Potassium [Moles/Vol] 5.4 mmol/L High 3.5-5.1 [facility] Comment on above: Order Comment: [facility] has implemented the eGFR calculation approach that does not have a coefficient for race that conforms to the NKF-ASN Task Force Recommendations. Performed By: #### 4 6449 ####[facility] [address] [place] [address] Glenn Gudino M.D. [id number] Sodium [Moles/Vol] 132 mmol/L Low 135-145 [facility] Comment on above: Order Comment: [facility] has implemented the eGFR calculation approach that does not have a coefficient for race that conforms to the NKF-ASN Task Force Recommendations. Performed By: #### 4 6449 ####[facility] [address] [place], [place] [address] Glenn Gudino M.D. [id number] Urea nitrogen [Mass/Vol] 43 mg/dL High 8-25 [facility] Comment on above: Order Comment: [facility] has implemented the eGFR calculation approach that does not have a coefficient for race that conforms to the NKF-ASN Task Force Recommendations. Performed By: #### 4 6449 ####[facility] [address] [place], [place] [address] Glenn Gudino M.D. [id number] Urea nitrogen/Creatinine [Mass ratio] 20.9 mg/mg High 10.0-20.0 [facility] Comment on above: Order Comment: [facility] has implemented the eGFR calculation approach that does not have a coefficient for race that conforms to the NKF-ASN Task Force Recommendations. Performed By: #### 4 6449 ####[facility] [address] [place] [address] 83569 Glenn Gudino M.D. [id number] CALCIUM, IONIZEDon 09-20-202 4 CALCIUM IONIZED 4.8 mg/dL Normal 4.5-5.3 [facility] Comment on above: Order Comment: Serum , non-CRRT source. Performed By: #### 4 5190 ####[facility] [address] [place], [place] [address] Glenn Gudino M.D. [id number] CALCIUM IONIZED 4.5 mg/dL Normal 4.5-5.3 [facility] Comment on above: Order Comment: Serum , non-CRRT source. Performed By: #### 4 5190 ####[facility] [address] [place] [address] Glenn Gudino M.D. [id number] CBCon 02-16-2024 AUTO NRBC 0.0 % Normal [facility] Comment on above: Performed By: #### 4 5218 ####[facility] [address] [place], [place] [address] Glenn Gudino M.D. [id number] AUTO NRBC ABS COUNT 0.00 K/mcL Normal 0.00-0.00 [facility] Comment on above: Performed By: #### 4 5218 ####[facility] [address] [place], [place] [address] Glenn Gudino M.D. [id number] Erythrocyte distribution width (RBC) [Ratio] 20.1 % High 11.6-14.8 [facility] Comment on above: Performed By: #### 4 5218 ####[facility] [address] [place], [place] [address] Glenn Gudino M.D. [id number] Hematocrit (Bld) [Volume fraction] 22.6 % Low 36.0-46.0 [facility] Comment on above: Performed By: #### 4 5218 ####[facility] [address] [place], [place] [address] Glenn Gudino M.D. [id number] Hemoglobin (Bld) [Mass/Vol] 7.0 g/dL Low 12.0-16.0 [facility] Comment on above: Performed By: #### 4 [id number] ####[facility] [address] [place] [address] Glenn Gudino M.D. [id number] MCH (RBC) [Entitic mass] 28.6 pg Normal 26.0-34.0 [facility] Comment on above: Performed By: #### 4 5218 ####[facility] [address] [place] [address] Glenn Gudino M.D. [id number] MCV (RBC) [Entitic vol] 92.2 fL Normal 80.0-100.0 [facility] Comment on above: Performed By: #### 4 5218 ####[facility] [address] [place] [address] Glenn Gudino M.D. [id number] MEAN CORPUSCULAR HEMOGLOBIN CONC 31.0 g/dL Normal 31.0-37.0 [facility] Comment on above: Performed By: #### 4 5218 ####[facility] [address] [place] [address] Glenn Gudino M.D. [id number] Platelet mean volume (Bld) [Entitic vol] 9.7 fL Normal 9.4-12.4 [facility] Comment on above: Performed By: #### 4 [id number] ####[facility] [address] [place], [place] [address] Glenn Gudino M.D. [id number] Platelets (Bld) [#/Vol] 203 10*3/uL Normal 150-400 [facility] Comment on above: Performed By: #### 4 5218 ####[facility] [address] [place], [place] [address] Glenn Gudino M.D. [id number] RBC (Bld) [#/Vol] 2.45 10*6/uL Low 4.00-5.20 [facility] Comment on above: Performed By: #### 4 5218 ####[facility] [address] [place] [address] Glenn Gudino M.D. [id number] WBC (Bld) [#/Vol] 14.40 10*3/uL High 4.50-11.00 [facility] Comment on above: Performed By: #### 4 5218 ####[facility] [address] [place] [address] Glenn Gudino M.D. [id number] AUTO NRBC 0.0 % Normal [facility] Comment on above: Performed By: #### 4 5218 ####[facility] [address] [place] [address] Glenn Gudino M.D. [id number] AUTO NRBC ABS COUNT 0.00 K/mcL Normal 0.00-0.00 [facility] Comment on above: Performed By: #### 4 5218 ####[facility] [address] [place], [place] [address] Glenn Gudino M.D. [id number] Erythrocyte distribution width (RBC) [Ratio] 19.9 % High 11.6-14.8 [facility] Comment on above: Performed By: #### 4 5218 ####[facility] [address] [place], [place] [address] Glenn Gudino M.D. [id number] Hematocrit (Bld) [Volume fraction] 14.9 % Low 36.0-46.0 [facility] Comment on above: Result Comment: Repe ated verified Performed By: #### 4 5218 ####[facility] [address] [place] [address] Glenn Gudino M.D. [id number] Hemoglobin (Bld) [Mass/Vol] 4.6 g/dL Off scale low 12.0-16.0 [facility] Comment on above: Result Comment: Resu lts called and read back verified by:.[id number] [email or web address] Performed By: #### 4 5218 ####[facility] [address] [place] [address] Glenn Gudino M.D. [id number] MCH (RBC) [Entitic mass] 29.1 pg Normal 26.0-34.0 [facility] Comment on above: Performed By: #### 4 5218 ####[facility] [address] [place] [address] Glenn Gudino M.D. [id number] MCV (RBC) [Entitic vol] 94.3 fL Normal 80.0-100.0 [facility] Comment on above: Performed By: #### 4 5218 ####[facility] [address] [place] [address] Glenn Gudino M.D. [id number] MEAN CORPUSCULAR HEMOGLOBIN CONC 30.9 g/dL Low 31.0-37.0 [facility] Comment on above: Performed By: #### 4 5218 ####[facility] [address] [place], [place] [address]Karma Gudino M.D. [id number] Platelet mean volume (Bld) [Entitic vol] 9.5 fL Normal 9.4-12.4 [facility] Comment on above: Performed By: #### 4 5218 ####[facility] [address] [place] [address] Glenn Gudino M.D. [id number] Platelets (Bld) [#/Vol] 286 10*3/uL Normal 150-400 [facility] Comment on above: Performed By: #### 4 5218 ####[facility] [address] [place], [place] [address]Karma Gudino M.D. [id number] RBC (Bld) [#/Vol] 1.58 10*6/uL Low 4.00-5.20 [facility] Comment on above: Performed By: #### 4 5218 ####[facility] [address] [place] [address] 97562 Glenn Gudino M.D. [id number] WBC (Bld) [#/Vol] 21.59 10*3/uL High 4.50-11.00 [facility] Comment on above: Performed By: #### 4 5218 ####[facility] [address] [place], [place] [address] Glenn Gudino M.D. [id number] HEMOGLOBIN A1Con 02-16-2024 Glucose [Mass/Vol] 103 mg/dL Normal 74-114 [facility] Comment on above: Order Comment: Irina l: 4.2% - 5.6%Increased risk for diabetes: 5.7% - 6.4%Diabetes: >= 6.5%Pediatrics: No established reference rangeEstimated average glucose: 74-114 mg/dL Performed By: #### 4 8202 ####[facility] [address] [place], [place] [address] Glenn Gudino M.D. [id number] HbA1c (Bld) [Mass fraction] 5.2 % Normal 4.2-5.6 [facility] Comment on above: Order Comment: Irina l: 4.2% - 5.6%Increased risk for diabetes: 5.7% - 6.4%Diabetes: >= 6.5%Pediatrics: No established reference rangeEstimated average glucose: 74-114 mg/dL Performed By: #### 4 8202 ####[facility] [address] [place], [place] [address] Glenn Gudino M.D. [id number] HEMOGLOBIN AND HEMATOCRITon 02-16-2024 Hematocrit (Bld) [Volume fraction] 23.6 % Low 36.0-46.0 [facility] Comment on above: Performed By: #### 4 6909 ####[facility] [address] [place] [address] 48927 Glenn Gudino M.D. [id number] Hemoglobin (Bld) [Mass/Vol] 7.5 g/dL Low 12.0-16.0 [facility] Comment on above: Result Comment: Resu lts checked Performed By: #### 4 6909 ####[facility] [address] [place] [address] Glenn Gudino M.D. [id number] MAGNESIUM LEVELon 02-16-2024 Magnesium [Mass/Vol] 1.8 mg/dL Normal 1.6-2.4 [facility] Comment on above: Performed By: #### 4 6109 ####[facility] [address] [place], [place] [address] Glenn Gudino M.D. [id number] Magnesium [Mass/Vol] 1.9 mg/dL Normal 1.6-2.4 [facility] Comment on above: Performed By: #### 4 6109 ####[facility] [address] [place] [address] Glenn Gudino M.D. [id number] POC GLUCOSE - [facility] 024 Glucose [Mass/Vol] 110 mg/dL High 65-99 [facility] Comment on above: Performed By: #### 4 3756 ####[facility] [address] [place] [address] [id number] [facility] Glucose [Mass/Vol] 94 mg/dL Normal 65-99 [facility] Comment on above: Performed By: #### 4 8531 ####[facility] [address] [place] [address] [id number] [facility] Glucose [Mass/Vol] 169 mg/dL High 65-99 [facility] Comment on above: Performed By: #### 4 3613 ####[facility] [address] [place] [address] [id number] [facility] Glucose [Mass/Vol] 64 mg/dL Low 65- [facility] Comment on above: Performed By: #### 4 4182 ####[facility] [address] [place] [address] [id number] [facility] Glucose [Mass/Vol] 56 mg/dL Low 65- [facility] Comment on above: Performed By: #### 4 3908 ####[facility] [address] [place] [address] [id number] [facility] Glucose [Mass/Vol] 60 mg/dL Low 65- [facility] Comment on above: Performed By: #### 4 0839 ####[facility] [address] [place] [address] [id number] [facility] Glucose [Mass/Vol] 72 mg/dL Normal 65- [facility] Comment on above: Performed By: #### 4 3465 ####[facility] [address] [place] [address] [id number] [facility] Glucose [Mass/Vol] 125 mg/dL High 65- [facility] Comment on above: Performed By: #### 4 6959 ####[facility] [address] [place] [address] [id number] [facility] Glucose [Mass/Vol] 127 mg/dL High 65- [facility] Comment on above: Performed By: #### 4 3255 ####[facility] [address] [place] [address] [id number] [facility] Glucose [Mass/Vol] 113 mg/dL High 65- [facility] Comment on above: Performed By: #### 4 8591 ####[facility] [address] [place] [address] [id number] [facility] RENAL FUNCTION PANELon 02-15 Albumin [Mass/Vol] 2.3 g/dL Low 3.2-5.2 [facility] Comment on above: Order Comment: [facility] has implemented the eGFR calculation approach that does not have a coefficient for race that conforms to the NKF-ASN Task Force Recommendations. Performed By: #### 4 6449 ####[facility] [address] [place] [address] 66871 Glenn Gudino M.D. [id number] Anion gap [Moles/Vol] 12 mmol/L Normal 10-20 [facility] Comment on above: Order Comment: [facility] has implemented the eGFR calculation approach that does not have a coefficient for race that conforms to the NKF-ASN Task Force Recommendations. Performed By: #### 4 6449 ####[facility] [address] [place], [place] [address] Glenn Gudino M.D. [id number] Calcium [Mass/Vol] 8.2 mg/dL Low 8.4-10.2 [facility] Comment on above: Order Comment: [facility] has implemented the eGFR calculation approach that does not have a coefficient for race that conforms to the NKF-ASN Task Force Recommendations. Performed By: #### 4 6449 ####[facility] [address] [place] [address] 65721 Glenn Gudino M.D. [id number] Chloride [Moles/Vol] 98 mmol/L Normal 98-108 [facility] Comment on above: Order Comment: [facility] has implemented the eGFR calculation approach that does not have a coefficient for race that conforms to the NKF-ASN Task Force Recommendations. Performed By: #### 4 6449 ####[facility] [address] [place] [address] 79530 Glenn Gudino M.D. [id number] Creatinine [Mass/Vol] 1.00 mg/dL Normal 0.60-1.10 [facility] Comment on above: Order Comment: [facility] has implemented the eGFR calculation approach that does not have a coefficient for race that conforms to the NKF-ASN Task Force Recommendations. Performed By: #### 4 6449 ####[facility] [address] [place] [address] 50543 Glenn Gudino M.D. [id number] EGFR 64 mL/min/1.73 m2 Normal >=60 [facility] Comment on above: Order Comment: [facility] has implemented the eGFR calculation approach that does not have a coefficient for race that conforms to the NKF-ASN Task Force Recommendations. Result Comment: Joi mated GFR was calculated using the 2020 CKD-EPI creatinine equation. Performed By: #### 4 6449 ####[facility] [address] [place] [address] 60356 Glenn Gudino M.D. [id number] Glucose [Mass/Vol] 110 mg/dL High 65-99 [facility] Comment on above: Order Comment: [facility] has implemented the eGFR calculation approach that does not have a coefficient for race that conforms to the NKF-ASN Task Force Recommendations. Performed By: #### 4 6449 ####[facility] [address] [place] [address] 63142 Glenn Gudino M.D. [id number] HCO3 (Bld) [Moles/Vol] 29 mmol/L Normal 21-32 [facility] Comment on above: Order Comment: [facility] has implemented the eGFR calculation approach that does not have a coefficient for race that conforms to the NKF-ASN Task Force Recommendations. Performed By: #### 4 6449 ####[facility] [address] [place] [address] 07618 Glenn Gudino M.D. [id number] Phosphate [Mass/Vol] 1.0 mg/dL Low 2.8-4.1 [facility] Comment on above: Order Comment: [facility] has implemented the eGFR calculation approach that does not have a coefficient for race that conforms to the NKF-ASN Task Force Recommendations. Performed By: #### 4 6449 ####[facility] [address] [place] [address] 38154 Glenn Gudino M.D. [id number] Potassium [Moles/Vol] 3.6 mmol/L Normal 3.5-5.1 [facility] Comment on above: Order Comment: [facility] has implemented the eGFR calculation approach that does not have a coefficient for race that conforms to the NKF-ASN Task Force Recommendations. Performed By: #### 4 6449 ####[facility] [address] [place] [address] 94478 Glenn Gudino M.D. [id number] Sodium [Moles/Vol] 135 mmol/L Normal 135-145 [facility] Comment on above: Order Comment: [facility] has implemented the eGFR calculation approach that does not have a coefficient for race that conforms to the NKF-ASN Task Force Recommendations. Performed By: #### 4 6449 ####[facility] [address] [place] [address] 20330 Glenn Gudino M.D. [id number] Urea nitrogen [Mass/Vol] 27 mg/dL High 8-25 [facility] Comment on above: Order Comment: [facility] has implemented the eGFR calculation approach that does not have a coefficient for race that conforms to the NKF-ASN Task Force Recommendations. Performed By: #### 4 6449 ####[facility] [address] [place] [address] 48952 Glenn Gudino M.D. [id number] Urea nitrogen/Creatinine [Mass ratio] 27.0 mg/mg High 10.0-20.0 [facility] Comment on above: Order Comment: [facility] has implemented the eGFR calculation approach that does not have a coefficient for race that conforms to the NKF-ASN Task Force Recommendations. Performed By: #### 4 6449 ####[facility] [address] [place], [place] [address] Glenn Gudino M.D. [id number] XR CHEST PA/APon 02-16-2024 XR CHEST PA/AP Normal [facility] Comment on above: Order Comment: Injur y/Trauma or Illness?:Illness/OtherHow long have you had these symptoms (acute/chronic)?:AcuteReason for exam?:pneumothoraxHistory of cancer?:uSurgeries, chemotherapy, or radiation?:uType of Exam?:InitialAdditional signs and symptoms?:. ANTIBODY IDENTIFICATION-FYAo n 02-15-2024 ANTIBODY IDENTIFICATION-FYA Normal [facility] Comment on above: Performed By: #### 4 6427_Anti-Fya ####PENDING SALE TO [facility] [address] [place] [address] Nurys Oneill MD [id number] [facility] METABOLIC PANELon 01-27 Anion gap [Moles/Vol] 13 mmol/L Normal 10-20 [facility] Comment on above: Order Comment: [facility] has implemented the eGFR calculation approach that does not have a coefficient for race that conforms to the NKF-ASN Task Force Recommendations. Performed By: #### 4 6124 ####[facility] [address] [place], [place] [address] Glenn Gudino M.D. [id number] Calcium [Mass/Vol] 7.8 mg/dL Low 8.4-10.2 [facility] Comment on above: Order Comment: [facility] has implemented the eGFR calculation approach that does not have a coefficient for race that conforms to the NKF-ASN Task Force Recommendations. Performed By: #### 4 6124 ####[facility] [address] [place] [address] 74125 Glenn Gudino M.D. [id number] Chloride [Moles/Vol] 99 mmol/L Normal 98-108 [facility] Comment on above: Order Comment: [facility] has implemented the eGFR calculation approach that does not have a coefficient for race that conforms to the NKF-ASN Task Force Recommendations. Performed By: #### 4 6124 ####[facility] [address] [place] [address] 44070 Glenn Gudino M.D. [id number] Creatinine [Mass/Vol] 1.73 mg/dL High 0.60-1.10 [facility] Comment on above: Order Comment: [facility] has implemented the eGFR calculation approach that does not have a coefficient for race that conforms to the NKF-ASN Task Force Recommendations. Performed By: #### 4 6124 ####[facility] [address] [place] [address] 79936 Glenn Gudino M.D. [id number] EGFR 33 mL/min/1.73 m2 Low >=60 [facility] Comment on above: Order Comment: [facility] has implemented the eGFR calculation approach that does not have a coefficient for race that conforms to the NKF-ASN Task Force Recommendations. Result Comment: Joi mated GFR was calculated using the 2020 CKD-EPI creatinine equation. Performed By: #### 4 6124 ####[facility] [address] [place] [address] 79126 Glenn Gudino M.D. [id number] Glucose [Mass/Vol] 97 mg/dL Normal 65-99 [facility] Comment on above: Order Comment: [facility] has implemented the eGFR calculation approach that does not have a coefficient for race that conforms to the NKF-ASN Task Force Recommendations. Performed By: #### 4 6124 ####[facility] [address] [place] [address] 76100 Glenn Gudino M.D. [id number] HCO3 (Bld) [Moles/Vol] 28 mmol/L Normal 21-32 [facility] Comment on above: Order Comment: [facility] has implemented the eGFR calculation approach that does not have a coefficient for race that conforms to the NKF-ASN Task Force Recommendations. Performed By: #### 4 6124 ####[facility] [address] [place], [place] [address] Glenn Gudino M.D. [id number] Potassium [Moles/Vol] 3.1 mmol/L Low 3.5-5.1 [facility] Comment on above: Order Comment: [facility] has implemented the eGFR calculation approach that does not have a coefficient for race that conforms to the NKF-ASN Task Force Recommendations. Result Comment: Slig htly Hemolyzed Performed By: #### 4 6124 ####[facility] [address] [place], [place] [address] Glenn Gudino M.D. [id number] Sodium [Moles/Vol] 137 mmol/L Normal 135-145 [facility] Comment on above: Order Comment: [facility] has implemented the eGFR calculation approach that does not have a coefficient for race that conforms to the NKF-ASN Task Force Recommendations. Performed By: #### 4 6124 ####[facility] [address] [place], [place] [address] Glenn Gudino M.D. [id number] Urea nitrogen [Mass/Vol] 46 mg/dL High 8-25 [facility] Comment on above: Order Comment: [facility] has implemented the eGFR calculation approach that does not have a coefficient for race that conforms to the NKF-ASN Task Force Recommendations. Performed By: #### 4 6124 ####[facility] [address] [place] [address] 42737 Glenn Gudino M.D. [id number] Urea nitrogen/Creatinine [Mass ratio] 26.6 mg/mg High 10.0-20.0 [facility] Comment on above: Order Comment: [place] [facility] has implemented the eGFR calculation approach that does not have a coefficient for race that conforms to the NKF-ASN Task Force Recommendations. Performed By: #### 4 6124 ####[facility] [address] [place] [address] Glenn Gudino M.D. [id number] CALCIUM, IONIZEDon CALCIUM IONIZED 4.7 mg/dL Normal 4.5-5.3 [facility] Comment on above: Order Comment: Serum , non-CRRT source. Performed By: #### 4 5190 ####[facility] [address] [place], [place] [id number] Glenn Gudino M.D. [id number] CBCon 02-15-2024 AUTO NRBC 0.0 % Normal [facility] Comment on above: Performed By: #### 4 [id number] ####[facility] [address] [place] [address] Glenn Gudino M.D. [id number] AUTO NRBC ABS COUNT 0.00 K/mcL Normal 0.00-0.00 [facility] Comment on above: Performed By: #### 4 [id number] ####[facility] [address] [place], [place] [address] Glenn Gudino M.D. [id number] Erythrocyte distribution width (RBC) [Ratio] 19.5 % High 11.6-14.8 [facility] Comment on above: Performed By: #### 4 [id number] ####[facility] [address] [place], [place] [address] Glenn Gudino M.D. [id number] Hematocrit (Bld) [Volume fraction] 27.0 % Low 36.0-46.0 [facility] Comment on above: Performed By: #### 4 [id number] ####[facility] [address] [place], [place] [address] Glenn Gudino M.D. [id number] Hemoglobin (Bld) [Mass/Vol] 8.4 g/dL Low 12.0-16.0 [facility] Comment on above: Performed By: #### 4 5218 ####[facility] [address] [place], [place] [address] Glenn Gudino M.D. [id number] MCH (RBC) [Entitic mass] 29.1 pg Normal 26.0-34.0 [facility] Comment on above: Performed By: #### 4 [id number] ####[facility] [address] [place], [place] [address] Glenn Gudino M.D. [id number] MCV (RBC) [Entitic vol] 93.4 fL Normal 80.0-100.0 [facility] Comment on above: Performed By: #### 4 5218 ####[facility] [address] [place] [address] Glenn Gudino M.D. [id number] MEAN CORPUSCULAR HEMOGLOBIN CONC 31.1 g/dL Normal 31.0-37.0 [facility] Comment on above: Performed By: #### 4 [id number] ####[facility] [address] [place] [address] Glenn Gudino M.D. [id number] Platelet mean volume (Bld) [Entitic vol] 9.5 fL Normal 9.4-12.4 [facility] Comment on above: Performed By: #### 4 [id number] ####[facility] [address] [place], [place] [address] Glenn Gudino M.D. [id number] Platelets (Bld) [#/Vol] 288 10*3/uL Normal 150-400 [facility] Comment on above: Performed By: #### 4 5218 ####[facility] [address] [place], [place] [address] Glenn Gudino M.D. [id number] RBC (Bld) [#/Vol] 2.89 10*6/uL Low 4.00-5.20 [facility] Comment on above: Performed By: #### 4 5218 ####[facility] [address] [place], [place] [address] Glenn Gudino M.D. [id number] WBC (Bld) [#/Vol] 16.69 10*3/uL High 4.50-11.00 [facility] Comment on above: Performed By: #### 4 5218 ####[facility] [address] [place] [address] Glenn Gudino M.D. [id number] MAGNESIUM LEVELon 02-15-2024 Magnesium [Mass/Vol] 2.0 mg/dL Normal 1.6-2.4 [facility] Comment on above: Performed By: #### 4 6109 ####[facility] [address] [place] [address] Glenn Gudino M.D. [id number] POC GLUCOSE - [facility] 024 Glucose [Mass/Vol] 113 mg/dL High 65-99 [facility] Comment on above: Performed By: #### 4 6928 ####[facility] [address] [place] [address] [id number] [facility] Glucose [Mass/Vol] 173 mg/dL High 65-99 [facility] Comment on above: Performed By: #### 4 6801 ####[facility] [address] [place] [address] [id number] [facility] Glucose [Mass/Vol] 82 mg/dL Normal 65-99 [facility] Comment on above: Performed By: #### 4 5481 ####[facility] [address] [place] [address] [id number] [facility] Glucose [Mass/Vol] 50 mg/dL Low 65-99 [facility] Comment on above: Performed By: #### 4 2024 ####[facility] [address] [place] [address] [id number] [facility] Glucose [Mass/Vol] 99 mg/dL Normal 65-99 [facility] Comment on above: Performed By: #### 4 0005 ####[facility] [address] [place] [address] [id number] [facility] Glucose [Mass/Vol] 179 mg/dL High 65-99 [facility] Comment on above: Performed By: #### 4 6932 ####[facility] [address] [place] [address] [id number] [facility] Glucose [Mass/Vol] 145 mg/dL High 65-99 [facility] Comment on above: Performed By: #### 4 6932 ####PENDING SALE TO [facility] [address] [place] [address] [id number] [facility] RENAL FUNCTION PANELon 02-14 Albumin [Mass/Vol] 2.2 g/dL Low 3.2-5.2 [facility] Comment on above: Order Comment: [facility] has implemented the eGFR calculation approach that does not have a coefficient for race that conforms to the NKF-ASN Task Force Recommendations. Performed By: #### 4 6449 ####[facility] [address] [place] [address] Glenn Gudino M.D. [id number] Anion gap [Moles/Vol] 13 mmol/L Normal 10-20 [facility] Comment on above: Order Comment: [facility] has implemented the eGFR calculation approach that does not have a coefficient for race that conforms to the NKF-ASN Task Force Recommendations. Performed By: #### 4 6449 ####[facility] [address] [place] [address] Glenn Gudino M.D. [id number] Calcium [Mass/Vol] 7.9 mg/dL Low 8.4-10.2 [facility] Comment on above: Order Comment: [facility] has implemented the eGFR calculation approach that does not have a coefficient for race that conforms to the NKF-ASN Task Force Recommendations. Performed By: #### 4 6449 ####[facility] [address] [place], [place] [address] Glenn Gudino M.D. [id number] Chloride [Moles/Vol] 101 mmol/L Normal 98-108 [facility] Comment on above: Order Comment: [facility] has implemented the eGFR calculation approach that does not have a coefficient for race that conforms to the NKF-ASN Task Force Recommendations. Performed By: #### 4 6449 ####[facility] [address] [place], [place] [address] Glenn Gudino M.D. [id number] Creatinine [Mass/Vol] 1.60 mg/dL High 0.60-1.10 [facility] Comment on above: Order Comment: [facility] has implemented the eGFR calculation approach that does not have a coefficient for race that conforms to the NKF-ASN Task Force Recommendations. Performed By: #### 4 6449 ####[facility] [address] [place], [place] [address] Glenn Gudino M.D. [id number] EGFR 37 mL/min/1.73 m2 Low >=60 [facility] Comment on above: Order Comment: [facility] has implemented the eGFR calculation approach that does not have a coefficient for race that conforms to the NKF-ASN Task Force Recommendations. Result Comment: Joi mated GFR was calculated using the 2020 CKD-EPI creatinine equation. Performed By: #### 4 6449 ####[facility] [address] [place] [address] Glenn Gudino M.D. [id number] Glucose [Mass/Vol] 95 mg/dL Normal 65-99 [facility] Comment on above: Order Comment: [facility] has implemented the eGFR calculation approach that does not have a coefficient for race that conforms to the NKF-ASN Task Force Recommendations. Performed By: #### 4 6449 ####[facility] [address] [place] [address] Glenn Gudino M.D. [id number] HCO3 (Bld) [Moles/Vol] 27 mmol/L Normal 21-32 [facility] Comment on above: Order Comment: [facility] has implemented the eGFR calculation approach that does not have a coefficient for race that conforms to the NKF-ASN Task Force Recommendations. Performed By: #### 4 6449 ####[facility] [address] [place], [place] [address] Glenn Gudino M.D. [id number] Phosphate [Mass/Vol] 2.1 mg/dL Low 2.8-4.1 [facility] Comment on above: Order Comment: [facility] has implemented the eGFR calculation approach that does not have a coefficient for race that conforms to the NKF-ASN Task Force Recommendations. Performed By: #### 4 6449 ####[facility] [address] [place], [place] [address] Glenn Gudino M.D. [id number] Potassium [Moles/Vol] 2.8 mmol/L Low 3.5-5.1 [facility] Comment on above: Order Comment: [facility] has implemented the eGFR calculation approach that does not have a coefficient for race that conforms to the NKF-ASN Task Force Recommendations. Performed By: #### 4 6449 ####[facility] [address] [place], [place] [address] Glenn Gudino M.D. [id number] Sodium [Moles/Vol] 138 mmol/L Normal 135-145 [facility] Comment on above: Order Comment: [facility] has implemented the eGFR calculation approach that does not have a coefficient for race that conforms to the NKF-ASN Task Force Recommendations. Performed By: #### 4 6449 ####[facility] [address] [place] [address] Glenn Gudino M.D. [id number] Urea nitrogen [Mass/Vol] 44 mg/dL High 8-25 [facility] Comment on above: Order Comment: [facility] has implemented the eGFR calculation approach that does not have a coefficient for race that conforms to the NKF-ASN Task Force Recommendations. Performed By: #### 4 6449 ####[facility] [address] [place], [place] [address] Glenn Gudino M.D. [id number] Urea nitrogen/Creatinine [Mass ratio] 27.5 mg/mg High 10.0-20.0 [facility] Comment on above: Order Comment: [facility] has implemented the eGFR calculation approach that does not have a coefficient for race that conforms to the NKF-ASN Task Force Recommendations. Performed By: #### 4 6449 ####[facility] [address] [place] [address]4068 Glenn Gudino M.D. [id number] TYPE AND SCREENon 02-15-2024 TYPE AND SCREEN ABORH: O Positive AB SCREEN: Positive EXPIRATION DATE: 02/18/2024 23:59 EST Normal [facility] Comment on above: Performed By: #### 4 6619 ####PENDING SALE TO [facility] [address] [place] [address] Nurys Oneill MD [id number] [facility] XR CHEST PA/APon 02-15-2024 XR CHEST PA/AP [facility] Comment on above: Order Comment: Injur [...] of Exam?:Subsequent/Follow-upAdditional signs and symptoms?:/ CALCIUM, IONIZEDon 4 CALCIUM IONIZED 4.9 mg/dL Normal 4.5-5.3 [facility] Comment on above: Order Comment: Serum , non-CRRT source. Performed By: #### 4 5190 ####[facility] [address] [place], [place] [address] Glenn Gudino M.D. [id number] CBCon 02-14-2024 AUTO NRBC 0.0 % Normal [facility] Comment on above: Performed By: #### 4 5218 ####[facility] [address] [place] [address] Glenn Gudino M.D. [id number] AUTO NRBC ABS COUNT 0.00 K/mcL Normal 0.00-0.00 [facility] Comment on above: Performed By: #### 4 5218 ####[facility] [address] [place] [address] Glenn Gudino M.D. [id number] Erythrocyte distribution width (RBC) [Ratio] 20.9 % High 11.6-14.8 [facility] Comment on above: Performed By: #### 4 5218 ####[facility] [address] [place], [place] [address] Glenn Gudino M.D. [id number] Hematocrit (Bld) [Volume fraction] 23.1 % Low 36.0-46.0 [facility] Comment on above: Performed By: #### 4 5218 ####[facility] [address] [place] [address] Glenn Gudino M.D. [id number] Hemoglobin (Bld) [Mass/Vol] 6.9 g/dL Off scale low 12.0-16.0 [facility] Comment on above: Result Comment: Resu lts called and read back verified by:.[id number] @ 0621 Performed By: #### 4 5218 ####[facility] [address] [place], [place] [address] Glenn Gudino M.D. [id number] MCH (RBC) [Entitic mass] 28.4 pg Normal 26.0-34.0 [facility] Comment on above: Performed By: #### 4 5218 ####[facility] [address] [place] [address] Glenn Gudino M.D. [id number] MCV (RBC) [Entitic vol] 95.1 fL Normal 80.0-100.0 [facility] Comment on above: Performed By: #### 4 5218 ####[facility] [address] [place] [address] Glenn Gudino M.D. [id number] MEAN CORPUSCULAR HEMOGLOBIN CONC 29.9 g/dL Low 31.0-37.0 [facility] Comment on above: Performed By: #### 4 5218 ####[facility] [address] [place], [place] [address] Glenn Gudino M.D. [id number] Platelet mean volume (Bld) [Entitic vol] 9.8 fL Normal 9.4-12.4 [facility] Comment on above: Performed By: #### 4 5218 ####[facility] [address] [place], [place] [address] Glenn Gudino M.D. [id number] Platelets (Bld) [#/Vol] 346 10*3/uL Normal 150-400 [facility] Comment on above: Performed By: #### 4 5218 ####[facility] [address] [place], [place] [address] Glenn Gudino M.D. [id number] RBC (Bld) [#/Vol] 2.43 10*6/uL Low 4.00-5.20 [facility] Comment on above: Performed By: #### 4 5218 ####[facility] [address] [place], [place] [address] Glenn Gudino M.D. [id number] WBC (Bld) [#/Vol] 21.68 10*3/uL High 4.50-11.00 [facility] Comment on above: Performed By: #### 4 5218 ####[facility] [address] [place] [address] Glenn Gudino M.D. [id number] MAGNESIUM LEVELon 02-14-2024 Magnesium [Mass/Vol] 2.3 mg/dL Normal 1.6-2.4 [facility] Comment on above: Performed By: #### 4 6109 ####[facility] [address] [place] [address] Glenn Gudino M.D. [id number] POC GLUCOSE - [facility] 024 Glucose [Mass/Vol] 245 mg/dL High [address] [place] [address] Comment on above: Performed By: #### 4 6932 ####[facility] [address] [place] [address] [id number] [facility] Glucose [Mass/Vol] 128 mg/dL [address] Comment on above: Performed By: #### 4 7174 ####[facility] [address] [place] [address] [id number] [facility] Glucose [Mass/Vol] 156 mg/dL [address] Comment on above: Performed By: #### 4 9482 ####[facility] [address] [place] [address] [id number] [facility] Glucose [Mass/Vol] 207 mg/dL [address] Comment on above: Performed By: #### 4 3545 ####[facility] [address] [place] [address] [id number] [facility] Glucose [Mass/Vol] 233 mg/dL [address] Comment on above: Performed By: #### 4 3284 ####[facility] [address] [place] [address] [id number] [facility] Glucose [Mass/Vol] 179 mg/dL High 65-99 [facility] Comment on above: Performed By: #### 4 6932 ####PENDING S[facility] TO [facility] [address] [place] [address] [id number] [facility] Glucose [Mass/Vol] 187 mg/dL High 65-99 [facility] Comment on above: Performed By: #### 4 6932 ####[facility]END[facility] S[facility] [address] [place] [address] [id number] [facility] RENAL FUNCTION PANELon 02-13 Albumin [Mass/Vol] 2.2 g/dL Low 3.2-5.2 [facility] Comment on above: Order Comment: [facility] has implemented the eGFR calculation approach that does not have a coefficient for race that conforms to the NKF-ASN Task Force Recommendations. Performed By: #### 4 6449 ####[facility] [address] [place] [address] Glenn Gudino M.D. [id number] Anion gap [Moles/Vol] 18 mmol/L Normal 10-20 [facility] Comment on above: Order Comment: [facility] has implemented the eGFR calculation approach that does not have a coefficient for race that conforms to the NKF-ASN Task Force Recommendations. Performed By: #### 4 6449 ####[facility] [address] [place] [address] Glenn Gudino M.D. [id number] Calcium [Mass/Vol] 8.4 mg/dL Normal 8.4-10.2 [facility] Comment on above: Order Comment: [facility] has implemented the eGFR calculation approach that does not have a coefficient for race that conforms to the NKF-ASN Task Force Recommendations. Performed By: #### 4 6449 ####[facility] [address] [place], [place] [address] Glenn Gudino M.D. [id number] Chloride [Moles/Vol] 102 mmol/L Normal 98-108 [facility] Comment on above: Order Comment: [facility] has implemented the eGFR calculation approach that does not have a coefficient for race that conforms to the NKF-ASN Task Force Recommendations. Performed By: #### 4 6449 ####[facility] [address] [place], [place] [address] Glenn Gudino M.D. [id number] Creatinine [Mass/Vol] 2.41 mg/dL High 0.60-1.10 [facility] Comment on above: Order Comment: [facility] has implemented the eGFR calculation approach that does not have a coefficient for race that conforms to the NKF-ASN Task Force Recommendations. Performed By: #### 4 6449 ####[facility] [address] [place], [place] [address] Glenn Gudino M.D. [id number] EGFR 22 mL/min/1.73 m2 Low >=60 [facility] Comment on above: Order Comment: [facility] has implemented the eGFR calculation approach that does not have a coefficient for race that conforms to the NKF-ASN Task Force Recommendations. Result Comment: Joi mated GFR was calculated using the 2020 CKD-EPI creatinine equation. Performed By: #### 4 6449 ####[facility] [address] [place] [address] Glenn Gudino M.D. [id number] Glucose [Mass/Vol] 202 mg/dL High 65-99 [facility] Comment on above: Order Comment: [facility] has implemented the eGFR calculation approach that does not have a coefficient for race that conforms to the NKF-ASN Task Force Recommendations. Performed By: #### 4 6449 ####[facility] [address] [place] [address] Glenn Gudino M.D. [id number] HCO3 (Bld) [Moles/Vol] 22 mmol/L Normal 21-32 [facility] Comment on above: Order Comment: [facility] has implemented the eGFR calculation approach that does not have a coefficient for race that conforms to the NKF-ASN Task Force Recommendations. Performed By: #### 4 6449 ####[facility] [address] [place] [address] Glenn Gudino M.D. [id number] Phosphate [Mass/Vol] 4.7 mg/dL High 2.8-4.1 [facility] Comment on above: Order Comment: [facility] has implemented the eGFR calculation approach that does not have a coefficient for race that conforms to the NKF-ASN Task Force Recommendations. Performed By: #### 4 6449 ####[facility] [address] [place] [address] Glenn Gudino M.D. [id number] Potassium [Moles/Vol] 4.0 mmol/L Normal 3.5-5.1 [facility] Comment on above: Order Comment: [facility] has implemented the eGFR calculation approach that does not have a coefficient for race that conforms to the NKF-ASN Task Force Recommendations. Performed By: #### 4 6449 ####[facility] [address] [place] [address] Glenn Gudino M.D. [id number] Sodium [Moles/Vol] 138 mmol/L Normal 135-145 [facility] Comment on above: Order Comment: [facility] has implemented the eGFR calculation approach that does not have a coefficient for race that conforms to the NKF-ASN Task Force Recommendations. Performed By: #### 4 6449 ####[facility] [address] [place] [address] Glenn Gudino M.D. [id number] Urea nitrogen [Mass/Vol] 64 mg/dL High 8-25 [facility] Comment on above: Order Comment: [facility] has implemented the eGFR calculation approach that does not have a coefficient for race that conforms to the NKF-ASN Task Force Recommendations. Performed By: #### 4 6449 ####[facility] [address] [place] [address] Glenn Gudino M.D. [id number] Urea nitrogen/Creatinine [Mass ratio] 26.6 mg/mg High 10.0-20.0 [facility] Comment on above: Order Comment: [facility] has implemented the eGFR calculation approach that does not have a coefficient for race that conforms to the NKF-ASN Task Force Recommendations. Performed By: #### 4 6449 ####[facility] [address] [place], [place] [address] Glenn Gudino M.D. [id number] XR CHEST PA/APon 02-14-2024 XR CHEST PA/AP Normal [facility] Comment on above: Order Comment: Injur y/Trauma or Illness?:Illness/OtherHow long have you had these symptoms (acute/chronic)?:UnknownReason for exam?:chest tube palcement, pneumothoraxHistory of cancer?:uSurgeries, chemotherapy, or radiation?:uType of Exam?:InitialAdditional signs and symptoms?:. CALCIUM, IONIZEDon CALCIUM IONIZED 4.8 mg/dL Normal 4.5-5.3 [facility] Comment on above: Order Comment: Serum , non-CRRT source. Performed By: #### 4 5190 ####[facility] [address] [place] [address] Glenn Gudino M.D. [id number] CBCon 02-13-2024 AUTO NRBC 0.0 % Normal [facility] Comment on above: Performed By: #### 4 5218 ####[facility] [address] [place] [address] Glenn Gudino M.D. [id number] AUTO NRBC ABS COUNT 0.00 K/mcL Normal 0.00-0.00 [facility] Comment on above: Performed By: #### 4 5218 ####[facility] [address] [place] [address] Glenn Gudino M.D. [id number] Erythrocyte distribution width (RBC) [Ratio] 19.4 % High 11.6-14.8 [facility] Comment on above: Performed By: #### 4 5218 ####[facility] [address] [place], [place] [address] Glenn Gudino M.D. [id number] Hematocrit (Bld) [Volume fraction] 22.7 % Low 36.0-46.0 [facility] Comment on above: Performed By: #### 4 5218 ####[facility] [address] [place] [address] Glenn Gudino M.D. [id number] Hemoglobin (Bld) [Mass/Vol] 7.0 g/dL Low 12.0-16.0 [facility] Comment on above: Performed By: #### 4 5218 ####[facility] [address] [place] [address] Glenn Gudino M.D. [id number] MCH (RBC) [Entitic mass] 28.6 pg Normal 26.0-34.0 [facility] Comment on above: Performed By: #### 4 5218 ####[facility] [address] [place], [place] [address] Glenn Gudino M.D. [id number] MCV (RBC) [Entitic vol] 92.7 fL Normal 80.0-100.0 [facility] Comment on above: Performed By: #### 4 5218 ####[facility] [address] [place] [address] lGenn Gudino M.D. [id number] MEAN CORPUSCULAR HEMOGLOBIN CONC 30.8 g/dL Low 31.0-37.0 [facility] Comment on above: Performed By: #### 4 5218 ####[facility] [address] [place] [address] Glenn Gudino M.D. [id number] Platelet mean volume (Bld) [Entitic vol] 9.7 fL Normal 9.4-12.4 [facility] Comment on above: Performed By: #### 4 [id number] ####[facility] [address] [place] [address] Glenn Gudino M.D. [id number] Platelets (Bld) [#/Vol] 318 10*3/uL Normal 150-400 [facility] Comment on above: Performed By: #### 4 5218 ####[facility] [address] [place] [address] Glenn Gudino M.D. [id number] RBC (Bld) [#/Vol] 2.45 10*6/uL Low 4.00-5.20 [facility] Comment on above: Performed By: #### 4 5218 ####[facility] [address] [place], [place] [address] Glenn Gudino M.D. [id number] WBC (Bld) [#/Vol] 19.00 10*3/uL High 4.50-11.00 [facility] Comment on above: Result Comment: Left Shift.Peripheral smear reviewed manually Performed By: #### 4 [id number] ####[facility] [address] [place] [address] Glenn Gudino M.D. [id number] MAGNESIUM LEVELon 02-13-2024 Magnesium [Mass/Vol] 2.3 mg/dL Normal 1.6-2.4 [facility] Comment on above: Performed By: #### 4 6109 ####[facility] [address] [place] [address]43 Glenn Gudino M.D. [id number] POC GLUCOSE - [facility] 024 Glucose [Mass/Vol] 202 mg/dL High 65-99 [facility] Comment on above: Performed By: #### 4 [id number] ####[facility] [address] [place] [address] [id number] [facility] Glucose [Mass/Vol] 220 mg/dL High [address] [place] [address] Comment on above: Performed By: #### 4 6932 ####[facility] [address] [place] [address] [id number] [facility] Glucose [Mass/Vol] 224 mg/dL High [address] [place] [address] Comment on above: Performed By: #### 4 6932 ####[facility] [address] [place] [address] [id number] [facility] Glucose [Mass/Vol] 179 mg/dL High [address] [place] [address] Comment on above: Performed By: #### 4 6932 ####[facility] [address] [place] [address] [id number] [facility] Glucose [Mass/Vol] 169 mg/dL [address] Comment on above: Performed By: #### 4 6932 ####[facility] [address] [place] [address] [id number] [facility] RENAL FUNCTION PANELon 02-12 Albumin [Mass/Vol] 2.8 g/dL Low 3.2-5.2 [facility] Comment on above: Order Comment: [facility] has implemented the eGFR calculation approach that does not have a coefficient for race that conforms to the NKF-ASN Task Force Recommendations. Performed By: #### 4 6449 ####[facility] [address] [place] [address] Glenn Gudino M.D. [id number] Anion gap [Moles/Vol] 17 mmol/L Normal 10-20 [facility] Comment on above: Order Comment: [facility] has implemented the eGFR calculation approach that does not have a coefficient for race that conforms to the NKF-ASN Task Force Recommendations. Performed By: #### 4 6449 ####[facility] [address] [place] [address] Glenn Gudino M.D. [id number] Calcium [Mass/Vol] 8.7 mg/dL Normal 8.4-10.2 [facility] Comment on above: Order Comment: [facility] has implemented the eGFR calculation approach that does not have a coefficient for race that conforms to the NKF-ASN Task Force Recommendations. Performed By: #### 4 6449 ####[facility] [address] [place], [place] [address] Glenn Gudino M.D. [id number] Chloride [Moles/Vol] 101 mmol/L Normal 98-108 [facility] Comment on above: Order Comment: [facility] has implemented the eGFR calculation approach that does not have a coefficient for race that conforms to the NKF-ASN Task Force Recommendations. Performed By: #### 4 6449 ####[facility] [address] [place], [place] [address] Glenn Gudino M.D. [id number] Creatinine [Mass/Vol] 1.98 mg/dL High 0.60-1.10 [facility] Comment on above: Order Comment: [facility] has implemented the eGFR calculation approach that does not have a coefficient for race that conforms to the NKF-ASN Task Force Recommendations. Performed By: #### 4 6449 ####[facility] [address] [place], [place] [address] Glenn Gudino M.D. [id number] EGFR 28 mL/min/1.73 m2 Low >=60 [facility] Comment on above: Order Comment: [facility] has implemented the eGFR calculation approach that does not have a coefficient for race that conforms to the NKF-ASN Task Force Recommendations. Result Comment: Joi mated GFR was calculated using the 2020 CKD-EPI creatinine equation. Performed By: #### 4 6449 ####[facility] [address] [place], [place] [address] Glenn Gudino M.D. [id number] Glucose [Mass/Vol] 170 mg/dL High 65-99 [facility] Comment on above: Order Comment: [facility] has implemented the eGFR calculation approach that does not have a coefficient for race that conforms to the NKF-ASN Task Force Recommendations. Performed By: #### 4 6449 ####[facility] [address] [place], [place] [address] Glenn Gudino M.D. [id number] HCO3 (Bld) [Moles/Vol] 25 mmol/L Normal 21-32 [facility] Comment on above: Order Comment: [facility] has implemented the eGFR calculation approach that does not have a coefficient for race that conforms to the NKF-ASN Task Force Recommendations. Performed By: #### 4 6449 ####[facility] [address] [place], [place] [address] Glenn Gudino M.D. [id number] Phosphate [Mass/Vol] 4.0 mg/dL Normal 2.8-4.1 [facility] Comment on above: Order Comment: [facility] has implemented the eGFR calculation approach that does not have a coefficient for race that conforms to the NKF-ASN Task Force Recommendations. Performed By: #### 4 6449 ####[facility] [address] [place], [place] [address] Glenn Gudino M.D. [id number] Potassium [Moles/Vol] 4.5 mmol/L Normal 3.5-5.1 [facility] Comment on above: Order Comment: [facility] has implemented the eGFR calculation approach that does not have a coefficient for race that conforms to the NKF-ASN Task Force Recommendations. Performed By: #### 4 6449 ####[facility] [address] [place], [place] [address] Glenn Gudino M.D. [id number] Sodium [Moles/Vol] 138 mmol/L Normal 135-145 [facility] Comment on above: Order Comment: [facility] has implemented the eGFR calculation approach that does not have a coefficient for race that conforms to the NKF-ASN Task Force Recommendations. Performed By: #### 4 6449 ####[facility] [address] [place], [place] [address] Glenn Gudino M.D. [id number] Urea nitrogen [Mass/Vol] 48 mg/dL High 8-25 [facility] Comment on above: Order Comment: [facility] has implemented the eGFR calculation approach that does not have a coefficient for race that conforms to the NKF-ASN Task Force Recommendations. Performed By: #### 4 6449 ####[facility] [address] [place] [address] Glenn Gudino M.D. [id number] Urea nitrogen/Creatinine [Mass ratio] 24.2 mg/mg High 10.0-20.0 [facility] Comment on above: Order Comment: [facility] has implemented the eGFR calculation approach that does not have a coefficient for race that conforms to the NKF-ASN Task Force Recommendations. Performed By: #### 4 6449 ####[facility] [address] [place] [address] Glenn Gudino M.D. [id number] XR CHEST PA/APon 02-13-2024 XR CHEST PA/AP [facility] Comment on above: Order Comment: Injur y/Trauma or Illness?:Illness/OtherHow long have you had these symptoms (acute/chronic)?:UnknownReason for exam?:chest tube palcement, pneumothoraxHistory of cancer?:uSurgeries, chemotherapy, or radiation?:uType of Exam?:OngoingAdditional signs and symptoms?:chest tube palcement, pneumothorax ANTIBODY IDENTIFICATION-Con 02-12-2024 ANTIBODY IDENTIFICATION-C Normal [facility] Comment on above: Performed By: #### 4 6427_Anti-C ####PENDING SALE TO [facility] [address] [place] [address] Nurys Oneill MD [id number] [facility] CALCIUM, IONIZEDon CALCIUM IONIZED 4.7 mg/dL Normal 4.5-5.3 [facility] Comment on above: Order Comment: Serum , non-CRRT source. Performed By: #### 4 5190 ####[facility] [address] [place] [address] Glenn Gudino M.D. [id number] CBCon 02-12-2024 AUTO NRBC 0.1 % Normal [facility] Comment on above: Performed By: #### 4 [id number] ####[facility] [address] [place] [address] Glenn Gudino M.D. [id number] AUTO NRBC ABS COUNT 0.02 K/mcL High 0.00-0.00 [facility] Comment on above: Performed By: #### 4 [id number] ####[facility] [address] [place], [place] [address] Glenn Gudino M.D. [id number] Erythrocyte distribution width (RBC) [Ratio] 19.2 % High 11.6-14.8 [facility] Comment on above: Performed By: #### 4 [id number] ####[facility] [address] [place], [place] [address] Glenn Gudino M.D. [id number] Hematocrit (Bld) [Volume fraction] 23.6 % Low 36.0-46.0 [facility] Comment on above: Performed By: #### 4 [id number] ####[facility] [address] [place], [place] [address] Glenn Gudino M.D. [id number] Hemoglobin (Bld) [Mass/Vol] 7.3 g/dL Low 12.0-16.0 [facility] Comment on above: Performed By: #### 4 [id number] ####[facility] [address] [place] [address] Glenn Gudino M.D. [id number] MCH (RBC) [Entitic mass] 28.6 pg Normal 26.0-34.0 [facility] Comment on above: Performed By: #### 4 5218 ####[facility] [address] [place], [place] [address] Glenn Gudino M.D. [id number] MCV (RBC) [Entitic vol] 92.5 fL Normal 80.0-100.0 [facility] Comment on above: Performed By: #### 4 5218 ####[facility] [address] [place] [address] Glenn Gudino M.D. [id number] MEAN CORPUSCULAR HEMOGLOBIN CONC 30.9 g/dL Low 31.0-37.0 [facility] Comment on above: Performed By: #### 4 [id number] ####[facility] [address] [place] [address] Glenn Gudino M.D. [id number] Platelet mean volume (Bld) [Entitic vol] 9.7 fL Normal 9.4-12.4 [facility] Comment on above: Performed By: #### 4 [id number] ####[facility] [address] [place], [place] [address] Glenn Gudino M.D. [id number] Platelets (Bld) [#/Vol] 317 10*3/uL Normal 150-400 [facility] Comment on above: Performed By: #### 4 [id number] ####[facility] [address] [place] [address] Glenn Gudino M.D. [id number] RBC (Bld) [#/Vol] 2.55 10*6/uL Low 4.00-5.20 [facility] Comment on above: Performed By: #### 4 [id number] ####[facility] [address] [place] [address] Glenn Gudino M.D. [id number] WBC (Bld) [#/Vol] 17.16 10*3/uL High 4.50-11.00 [facility] Comment on above: Performed By: #### 4 [id number] ####[facility] [address] [place], [place] [address] Glenn Gudino M.D. [id number] COMPREHENSIVE METABOLIC PANE Magdal[place] 02-12-2024 Albumin [Mass/Vol] 2.6 g/dL Low 3.2-5.2 [facility] Comment on above: Order Comment: [facility] has implemented the eGFR calculation approach that does not have a coefficient for race that conforms to the NKF-ASN Task Force Recommendations. Performed By: #### 4 6126 ####[facility] [address] [place] [address] Glenn Gudino M.D. [id number] Performed By: #### 4 6449 ####[facility] [address] [place], [place] [address] Glenn Gudino M.D. [id number] ALP [Catalytic activity/Vol] 76 U/L Normal 40-150 [facility] Comment on above: Order Comment: [facility] has implemented the eGFR calculation approach that does not have a coefficient for race that conforms to the NKF-ASN Task Force Recommendations. Performed By: #### 4 6126 ####[facility] [address] [place], [place] [address] Glenn Gudino M.D. [id number] ALT [Catalytic activity/Vol] 15 U/L Normal 0-35 U/L [facility] Comment on above: Order Comment: [facility] has implemented the eGFR calculation approach that does not have a coefficient for race that conforms to the NKF-ASN Task Force Recommendations. Performed By: #### 4 6126 ####[facility] [address] [place] [address] Glenn Gudino M.D. [id number] Anion gap [Moles/Vol] 20 mmol/L Normal 10-20 [facility] Comment on above: Order Comment: [facility] has implemented the eGFR calculation approach that does not have a coefficient for race that conforms to the NKF-ASN Task Force Recommendations. Performed By: #### 4 6126 ####[facility] [address] [place], [place] [address] Glenn Gudino M.D. [id number] Performed By: #### 4 6449 ####[facility] [address] [place] [address] Glenn Gudino M.D. [id number] AST [Catalytic activity/Vol] 32 U/L Normal 0-35 U/L [facility] Comment on above: Order Comment: [facility] has implemented the eGFR calculation approach that does not have a coefficient for race that conforms to the NKF-ASN Task Force Recommendations. Performed By: #### 4 6126 ####[facility] [address] [place] [address] Glenn Gudino M.D. [id number] Bilirubin [Mass/Vol] 0.4 mg/dL Normal 0.0-1.3 [facility] Comment on above: Order Comment: [facility] has implemented the eGFR calculation approach that does not have a coefficient for race that conforms to the NKF-ASN Task Force Recommendations. Performed By: #### 4 6126 ####[facility] [address] [place], [place] [address] Glenn Gudino M.D. [id number] Calcium [Mass/Vol] 8.3 mg/dL Low 8.4-10.2 [facility] Comment on above: Order Comment: [facility] has implemented the eGFR calculation approach that does not have a coefficient for race that conforms to the NKF-ASN Task Force Recommendations. Performed By: #### 4 6126 ####[facility] [address] [place], [place] [address] Glenn Gudino M.D. [id number] Performed By: #### 4 6449 ####[facility] [address] [place], [place] [address] Glenn Gudino M.D. [id number] Chloride [Moles/Vol] 106 mmol/L Normal 98-108 [facility] Comment on above: Order Comment: [facility] has implemented the eGFR calculation approach that does not have a coefficient for race that conforms to the NKF-ASN Task Force Recommendations. Performed By: #### 4 6126 ####[facility] [address] [place] [address] Glenn Gudino M.D. [id number] Performed By: #### 4 6449 ####[facility] [address] [place] [address] Glenn Gudino M.D. [id number] Creatinine [Mass/Vol] 2.81 mg/dL High 0.60-1.10 [facility] Comment on above: Order Comment: [facility] has implemented the eGFR calculation approach that does not have a coefficient for race that conforms to the NKF-ASN Task Force Recommendations. Performed By: #### 4 6126 ####[facility] [address] [place] [address] Glenn Gudino M.D. [id number] Performed By: #### 4 6449 ####[facility] [address] [place], [place] [address] Glenn Gudino M.D. [id number] EGFR 19 mL/min/1.73 m2 Low >=60 [facility] Comment on above: Order Comment: [facility] has implemented the eGFR calculation approach that does not have a coefficient for race that conforms to the NKF-ASN Task Force Recommendations. Result Comment: Joi mated GFR was calculated using the 2020 CKD-EPI creatinine equation. Performed By: #### 4 6126 ####[facility] [address] [place] [address] Glenn Gudino M.D. [id number] Result Comment: Joi mated GFR was calculated using the 2020 CKD-EPI creatinine equation.Estimated GFR was calculated using the 2020 CKD-EPI creatinine equation. Performed By: #### 4 6449 ####[facility] [address] [place] [address] Glenn Gudino M.D. [id number] Glucose [Mass/Vol] 168 mg/dL High 65-99 [facility] Comment on above: Order Comment: [facility] has implemented the eGFR calculation approach that does not have a coefficient for race that conforms to the NKF-ASN Task Force Recommendations. Performed By: #### 4 6126 ####[facility] [address] [place] [address] Glenn Gudino M.D. [id number] Performed By: #### 4 6449 ####[facility] [address] [place], [place] [address] Glenn Gudino M.D. [id number] HCO3 (Bld) [Moles/Vol] 19 mmol/L Low 21-32 [facility] Comment on above: Order Comment: [facility] has implemented the eGFR calculation approach that does not have a coefficient for race that conforms to the NKF-ASN Task Force Recommendations. Performed By: #### 4 6126 ####[facility] [address] [place] [address] Glenn Gudino M.D. [id number] Performed By: #### 4 6449 ####[facility] [address] [place], [place] [address] Glenn Gudino M.D. [id number] Potassium [Moles/Vol] 6.0 mmol/L High 3.5-5.1 [facility] Comment on above: Order Comment: [facility] has implemented the eGFR calculation approach that does not have a coefficient for race that conforms to the NKF-ASN Task Force Recommendations. Performed By: #### 4 6126 ####[facility] [address] [place] [address] Glenn Gudino M.D. [id number] Performed By: #### 4 6449 ####[facility] [address] [place] [address] Glenn Gudino M.D. [id number] Protein [Mass/Vol] 6.1 g/dL Normal 6.0-8.0 [facility] Comment on above: Order Comment: [facility] has implemented the eGFR calculation approach that does not have a coefficient for race that conforms to the NKF-ASN Task Force Recommendations. Performed By: #### 4 6126 ####[facility] [address] [place] [address] Glenn Gudino M.D. [id number] Sodium [Moles/Vol] 139 mmol/L Normal 135-145 [facility] Comment on above: Order Comment: [facility] has implemented the eGFR calculation approach that does not have a coefficient for race that conforms to the NKF-ASN Task Force Recommendations. Performed By: #### 4 6126 ####[facility] [address] [place] [address] Glenn Gudino M.D. [id number] Performed By: #### 4 6449 ####[facility] [address] [place], [place] [address] Glenn Gudino M.D. [id number] Urea nitrogen [Mass/Vol] 74 mg/dL High 8-25 [facility] Comment on above: Order Comment: [facility] has implemented the eGFR calculation approach that does not have a coefficient for race that conforms to the NKF-ASN Task Force Recommendations. Performed By: #### 4 6126 ####[facility] [address] [place] [address] Glenn Gudino M.D. [id number] Performed By: #### 4 6449 ####[facility] [address] [place], [place] [address] Glenn Gudino M.D. [id number] Urea nitrogen/Creatinine [Mass ratio] 26.3 mg/mg High 10.0-20.0 [facility] Comment on above: Order Comment: [facility] has implemented the eGFR calculation approach that does not have a coefficient for race that conforms to the NKF-ASN Task Force Recommendations. Performed By: #### 4 6126 ####[facility] [address] [place] [address] Glenn Gudino M.D. [id number] Performed By: #### 4 6449 ####[facility] [address] [place], [place] [address] Glenn Gudino M.D. [id number] HEPATITIS B CORE ANTIBODY, T OTALon 02-12-2024 HEPATITIS B CORE TOTAL ANTIBODY Negative Normal Negative [facility] Comment on above: Order Comment: Test performed using Adele ANNALISE immunoassay system Performed By: #### 4 5873 ####[facility] [address] [place] [address] Glenn Gudino M.D. [id number] HEPATITIS B E ANTIGENon 01-27 HEPATITIS BE ANTIGEN Negative Normal Negative [facility] Comment on above: Performed By: #### 4 4083 ####[facility] [address] [place], [place] [address] Glenn Gudino M.D. [id number] HEPATITIS B SURFACE ANTIBODY on 02-12-2024 HEPATITIS B SURFACE ANTIBODY Negative Normal Negative [facility] Comment on above: Order Comment: Test performed using Adele ANNALISE immunoassay system Performed By: #### 4 5876 ####[facility] [address] [place] [address] Glenn Gudino M.D. [id number] HEPATITIS B SURFACE ANTIGENo n 02-12-2024 HEPATITIS B SURFACE ANTIGEN Negative Normal Negative [facility] Comment on above: Order Comment: Test performed using Adele ANNALISE immunoassay system Performed By: #### 4 4081 ####[facility] [address] [place] [address] Glenn Gudino M.D. [id number] HEPATITIS BE ANTIBODYon 01-27 HEPATITIS BE ANTIBODY INTERPRETATION Negative Normal Negative [facility] Comment on above: Order Comment: Test performed using Adele ANNALISE immunoassay system Performed By: #### L [id number] ####[facility] [address] [place] [address] Glenn Gudino M.D. [id number] MAGNESIUM LEVELon 02-12-2024 Magnesium [Mass/Vol] 2.6 mg/dL High 1.6-2.4 [facility] Comment on above: Performed By: #### 4 6109 ####[facility] [address] [place] [address] Glenn Gudino M.D. [id number] POC GLUCOSE [facility] 024 Glucose [Mass/Vol] 127 mg/dL High 65-99 [facility] Comment on above: Performed By: #### 4 6913 ####[facility] [address] [place] [address] [id number] [facility] Glucose [Mass/Vol] 185 mg/dL High 65-99 [facility] Comment on above: Performed By: #### 4 6974 ####[facility] [address] [place] [address] [id number] [facility] Glucose [Mass/Vol] 257 mg/dL High 65-99 [facility] Comment on above: Performed By: #### 4 6941 ####[facility] [address] [place] [address] [id number] [facility] Glucose [Mass/Vol] 75 mg/dL Normal 65-99 [facility] Comment on above: Performed By: #### 4 6932 ####[facility] [address] [place] [address] [id number] [facility] PREALBUMINon 02-12-2024 Prealbumin [Mass/Vol] 18.3 mg/dL Low 20.0-40.0 [facility] Comment on above: Performed By: #### 4 6355 ####[facility] [address] [place] [address] Glenn Gudino M.D. [id number] RENAL FUNCTION PANELon 02-11 Phosphate [Mass/Vol] 5.4 mg/dL High 2.8-4.1 [facility] Comment on above: Order Comment: [facility] has implemented the eGFR calculation approach that does not have a coefficient for race that conforms to the NKF-ASN Task Force Recommendations. Performed By: #### 4 6449 ####[facility] [address] [place] [address] Glenn Gudino M.D. [id number] TRIGLYCERIDESon 02-12-2024 Triglyceride [Mass/Vol] 150 mg/dL Normal 30-150 [facility] Comment on above: Result Comment: [facility] [employer] Cholesterol Education Program Guidelines: TriglycerideNormal: <150 mg/dLBorderline High: 150-199 mg/dLHigh: 200-499 mg/dLVery High: greater than or equal to 500 mg/dL Performed By: #### 4 6606 ####[facility] [address] [place] [address] Glenn Gudino M.D. [id number] TYPE AND SCREENon 02-12-2024 TYPE AND SCREEN ABORH: O Positive AB SCREEN: Positive EXPIRATION DATE: 02/15/2024 23:59 EST Normal [facility] Comment on above: Performed By: #### 4 6619 ####PENDING S[facility] TO [facility] [address] [place] [address] Nurys Oneill MD [id number] [facility] XR CHEST PA/APon 02-12-2024 XR CHEST PA/AP Normal [facility] Comment on above: Order Comment: Injur y/Trauma or Illness?:Illness/OtherHow long have you had these symptoms (acute/chronic)?:AcuteReason for exam?:chest tube palcement, pneumothoraxHistory of cancer?:uSurgeries, chemotherapy, or radiation?:uType of Exam?:InitialAdditional signs and symptoms?:, CALCIUM, IONIZEDon CALCIUM IONIZED 4.7 mg/dL Normal 4.5-5.3 [facility] Comment on above: Order Comment: Serum , non-CRRT source. Performed By: #### 4 5190 ####[facility] [address] [place] [address] Glenn Gudino M.D. [id number] CBCon 02-11-2024 AUTO NRBC 0.1 % Normal [facility] Comment on above: Performed By: #### 4 [id number] ####[facility] [address] [place] [address] Glenn Gudino M.D. [id number] AUTO NRBC ABS COUNT 0.02 K/mcL High 0.00-0.00 [facility] Comment on above: Performed By: #### 4 [id number] ####[facility] [address] [place], [place] [address] Glenn Gudino M.D. [id number] Erythrocyte distribution width (RBC) [Ratio] 19.1 % High 11.6-14.8 [facility] Comment on above: Performed By: #### 4 [id number] ####[facility] [address] [place], [place] [address] Glenn Gudino M.D. [id number] Hematocrit (Bld) [Volume fraction] 25.0 % Low 36.0-46.0 [facility] Comment on above: Performed By: #### 4 [id number] ####[facility] [address] [place], [place] [address] Glenn Gudino M.D. [id number] Hemoglobin (Bld) [Mass/Vol] 7.8 g/dL Low 12.0-16.0 [facility] Comment on above: Performed By: #### 4 [id number] ####[facility] [address] [place], [place] [address] Glenn Gudino M.D. [id number] MCH (RBC) [Entitic mass] 28.4 pg Normal 26.0-34.0 [facility] Comment on above: Performed By: #### 4 5218 ####[facility] [address] [place], [place] [address] Glenn Gudino M.D. [id number] MCV (RBC) [Entitic vol] 90.9 fL Normal 80.0-100.0 [facility] Comment on above: Performed By: #### 4 5218 ####[facility] [facility] [address] [place], [place] [id number] Glenn Gudino M.D. [id number] MEAN CORPUSCULAR HEMOGLOBIN CONC 31.2 g/dL Normal 31.0-37.0 [facility] Comment on above: Performed By: #### 4 [id number] ####[facility] [address] [place], [place] [address]Karma Gudino M.D. [id number] Platelet mean volume (Bld) [Entitic vol] 9.6 fL Normal 9.4-12.4 [facility] Comment on above: Performed By: #### 4 [id number] ####[facility] [address] [place], [place] [address] Glenn Gudino M.D. [id number] Platelets (Bld) [#/Vol] 375 10*3/uL Normal 150-400 [facility] Comment on above: Performed By: #### 4 7972 ####[facility] [address] [place] [address] Glenn Gudino M.D. [id number] RBC (Bld) [#/Vol] 2.75 10*6/uL Low 4.00-5.20 [facility] Comment on above: Performed By: #### 4 5218 ####[facility] [address] [place] [address] Glenn Gudino M.D. [id number] WBC (Bld) [#/Vol] 17.69 10*3/uL High 4.50-11.00 [facility] Comment on above: Performed By: #### 4 [id number] ####[facility] [address] [place] [address] Glenn Gudino M.D. [id number] MAGNESIUM LEVELon 02-11-2024 Magnesium [Mass/Vol] 2.4 mg/dL Normal 1.6-2.4 [facility] Comment on above: Performed By: #### 4 6109 ####[facility] [address] [place] [address] Glenn Gudino M.D. [id number] POC GLUCOSE [facility] 024 Glucose [Mass/Vol] 194 mg/dL High [address] [place] [address] Comment on above: Performed By: #### 4 2746 ####[facility] [address] [place] [address] [id number] [facility] Glucose [Mass/Vol] 138 mg/dL High [address] [place] [address] Comment on above: Performed By: #### 4 2800 ####[facility] [address] [place] [address] [id number] [facility] Glucose [Mass/Vol] 106 mg/dL [address] Comment on above: Performed By: #### 4 0210 ####[facility] [address] [place] [address] [id number] [facility] Glucose [Mass/Vol] 134 mg/dL High 65- [facility] Comment on above: Performed By: #### 4 6932 ####[facility] [address] [place] [address] [id number] [facility] Glucose [Mass/Vol] 152 mg/dL High [facility] Comment on above: Performed By: #### 4 6932 ####[facility] [address] [place] [address] [id number] [facility] Glucose [Mass/Vol] 171 mg/dL High [facility] Comment on above: Performed By: #### 4 6932 ####[facility] [address] [place] [address] [id number] [facility] Glucose [Mass/Vol] 169 mg/dL High [facility] Comment on above: Performed By: #### 4 6932 ####[facility] [address] [place] [address] [id number] [facility] RENAL FUNCTION PANEL 02-10 Albumin [Mass/Vol] 2.3 g/dL Low 3.2-5.2 [facility] Comment on above: Order Comment: [facility] has implemented the eGFR calculation approach that does not have a coefficient for race that conforms to the NKF-ASN Task Force Recommendations. Performed By: #### 4 6449 ####[facility] [address] [place] [address] Glenn Gudino M.D. [id number] Anion gap [Moles/Vol] 17 mmol/L Normal 10-20 [facility] Comment on above: Order Comment: [facility] has implemented the eGFR calculation approach that does not have a coefficient for race that conforms to the NKF-ASN Task Force Recommendations. Performed By: #### 4 6449 ####[facility] [address] [place] [address] Glenn Gudino M.D. [id number] Calcium [Mass/Vol] 8.0 mg/dL Low 8.4-10.2 [facility] Comment on above: Order Comment: [facility] has implemented the eGFR calculation approach that does not have a coefficient for race that conforms to the NKF-ASN Task Force Recommendations. Performed By: #### 4 6449 ####[facility] [address] [place] [address] Glenn Gudino M.D. [id number] Chloride [Moles/Vol] 103 mmol/L Normal 98-108 [facility] Comment on above: Order Comment: [facility] has implemented the eGFR calculation approach that does not have a coefficient for race that conforms to the NKF-ASN Task Force Recommendations. Performed By: #### 4 6449 ####[facility] [address] [place], [place] [address] Glenn Gudino M.D. [id number] Creatinine [Mass/Vol] 2.46 mg/dL High 0.60-1.10 [facility] Comment on above: Order Comment: [facility] has implemented the eGFR calculation approach that does not have a coefficient for race that conforms to the NKF-ASN Task Force Recommendations. Performed By: #### 4 6449 ####[facility] [address] [place] [address] Glenn Gudino M.D. [id number] EGFR 22 mL/min/1.73 m2 Low >=60 [facility] Comment on above: Order Comment: [facility] has implemented the eGFR calculation approach that does not have a coefficient for race that conforms to the NKF-ASN Task Force Recommendations. Result Comment: Joi mated GFR was calculated using the 2020 CKD-EPI creatinine equation. Performed By: #### 4 6449 ####[facility] [address] [place] [address] Glenn Gudino M.D. [id number] Glucose [Mass/Vol] 187 mg/dL High 65-99 [facility] Comment on above: Order Comment: [facility] has implemented the eGFR calculation approach that does not have a coefficient for race that conforms to the NKF-ASN Task Force Recommendations. Performed By: #### 4 6449 ####[facility] [address] [place] [address] Glenn Gudino M.D. [id number] HCO3 (Bld) [Moles/Vol] 22 mmol/L Normal 21-32 [facility] Comment on above: Order Comment: [facility] has implemented the eGFR calculation approach that does not have a coefficient for race that conforms to the NKF-ASN Task Force Recommendations. Performed By: #### 4 6449 ####[facility] [address] [place], [place] [address] Glenn Gudino M.D. [id number] Phosphate [Mass/Vol] 5.2 mg/dL High 2.8-4.1 [facility] Comment on above: Order Comment: [facility] has implemented the eGFR calculation approach that does not have a coefficient for race that conforms to the NKF-ASN Task Force Recommendations. Performed By: #### 4 6449 ####[facility] [address] [place], [place] [address] Glenn Gudino M.D. [id number] Potassium [Moles/Vol] 5.4 mmol/L High 3.5-5.1 [facility] Comment on above: Order Comment: [facility] has implemented the eGFR calculation approach that does not have a coefficient for race that conforms to the NKF-ASN Task Force Recommendations. Performed By: #### 4 6449 ####[facility] [address] [place] [address] Glenn Gudino M.D. [id number] Sodium [Moles/Vol] 137 mmol/L Normal 135-145 [facility] Comment on above: Order Comment: [facility] has implemented the eGFR calculation approach that does not have a coefficient for race that conforms to the NKF-ASN Task Force Recommendations. Performed By: #### 4 6449 ####[facility] [address] [place] [address] Glenn Gudino M.D. [id number] Urea nitrogen [Mass/Vol] 57 mg/dL High 8-25 [facility] Comment on above: Order Comment: [facility] has implemented the eGFR calculation approach that does not have a coefficient for race that conforms to the NKF-ASN Task Force Recommendations. Performed By: #### 4 6449 ####[facility] [address] [place] [address] Glenn Gudino M.D. [id number] Urea nitrogen/Creatinine [Mass ratio] 23.2 mg/mg High 10.0-20.0 [facility] Comment on above: Order Comment: [facility] has implemented the eGFR calculation approach that does not have a coefficient for race that conforms to the NKF-ASN Task Force Recommendations. Performed By: #### 4 6449 ####[facility] [address] [place] [address] Glenn Gudino M.D. [id number] XR CHEST PA/APon 02-11-2024 XR CHEST PA/AP Normal [facility] Comment on above: Order Comment: Injur y/Trauma or Illness?:Illness/OtherHow long have you had these symptoms (acute/chronic)?:AcuteReason for exam?:chest tube palcement, pneumothoraxHistory of cancer?:uSurgeries, chemotherapy, or radiation?:uType of Exam?:InitialAdditional signs and symptoms?:. CALCIUM, IONIZEDon CALCIUM IONIZED 4.7 mg/dL Normal 4.5-5.3 [facility] Comment on above: Order Comment: Serum , non-CRRT source. Performed By: #### 4 5190 ####[facility] [address] [place] [address] Glenn Gudino M.D. [id number] CBCon 02-10-2024 AUTO NRBC 0.0 % Normal [facility] Comment on above: Performed By: #### 4 5218 ####[facility] [address] [place], [place] [address] Glenn Gudino M.D. [id number] AUTO NRBC ABS COUNT 0.00 K/mcL Normal 0.00-0.00 [facility] Comment on above: Performed By: #### 4 5218 ####[facility] [address] [place] [address] Glenn Gudino M.D. [id number] Erythrocyte distribution width (RBC) [Ratio] 19.4 % High 11.6-14.8 [facility] Comment on above: Performed By: #### 4 5218 ####[facility] [address] [place], [place] [address] Glenn Gudino M.D. [id number] Hematocrit (Bld) [Volume fraction] 22.9 % Low 36.0-46.0 [facility] Comment on above: Performed By: #### 4 5218 ####[facility] [address] [place], [place] [address] Glenn Gudino M.D. [id number] Hemoglobin (Bld) [Mass/Vol] 7.4 g/dL Low 12.0-16.0 [facility] Comment on above: Performed By: #### 4 5218 ####[facility] [address] [place], [place] [address] Glenn Gudino M.D. [id number] MCH (RBC) [Entitic mass] 29.6 pg Normal 26.0-34.0 [facility] Comment on above: Performed By: #### 4 5218 ####[facility] [address] [place], [place] [address] Glenn Gudino M.D. [id number] MCV (RBC) [Entitic vol] 91.6 fL Normal 80.0-100.0 [facility] Comment on above: Performed By: #### 4 5218 ####[facility] [address] [place] [address] Glenn Gudino M.D. [id number] MEAN CORPUSCULAR HEMOGLOBIN CONC 32.3 g/dL Normal 31.0-37.0 [facility] Comment on above: Performed By: #### 4 5218 ####[facility] [address] [place] [address] Glenn Gudino M.D. [id number] Platelet mean volume (Bld) [Entitic vol] 9.8 fL Normal 9.4-12.4 [facility] Comment on above: Performed By: #### 4 5218 ####[facility] [address] [place], [place] [address] Glenn uGdino M.D. [id number] Platelets (Bld) [#/Vol] 323 10*3/uL Normal 150-400 [facility] Comment on above: Performed By: #### 4 5218 ####[facility] [address] [place], [place] [address] Glenn Gudino M.D. [id number] RBC (Bld) [#/Vol] 2.50 10*6/uL Low 4.00-5.20 [facility] Comment on above: Performed By: #### 4 5218 ####[facility] [address] [place], [place] [address] Glenn Gudino M.D. [id number] WBC (Bld) [#/Vol] 16.68 10*3/uL High 4.50-11.00 [facility] Comment on above: Performed By: #### 4 5218 ####[facility] [address] [place] [address] Glenn Gudino M.D. [id number] MAGNESIUM LEVELon 02-10-2024 Magnesium [Mass/Vol] 2.2 mg/dL Normal 1.6-2.4 [facility] Comment on above: Performed By: #### 4 6109 ####[facility] [address] [place] [address] Glenn Gudino M.D. [id number] POC GLUCOSE - [facility] 024 Glucose [Mass/Vol] 197 mg/dL High [address] [place] [address] Comment on above: Performed By: #### 4 6969 ####[facility] [address] [place] [address] [id number] [facility] Glucose [Mass/Vol] 181 mg/dL High [address] [place] [address] Comment on above: Performed By: #### 4 3901 ####[facility] [address] [place] [address] [id number] [facility] Glucose [Mass/Vol] 161 mg/dL High [address] [place] [address] Comment on above: Performed By: #### 4 7637 ####[facility] [address] [place] [address] [id number] [facility] Glucose [Mass/Vol] 173 mg/dL High [address] [place] [address] Comment on above: Performed By: #### 4 6257 ####[facility] [address] [place] [address] [id number] [facility] Glucose [Mass/Vol] 198 mg/dL High [address] [place] [address] Comment on above: Performed By: #### 4 1594 ####[facility] [address] [place] [address] [id number] [facility] Glucose [Mass/Vol] 178 mg/dL High [address] [place] [address] Comment on above: Performed By: #### 4 2854 ####[facility] [address] [place] [address] [id number] [facility] RENAL FUNCTION PANELon 02-09 Albumin [Mass/Vol] 2.3 g/dL Low 3.2-5.2 [facility] Comment on above: Order Comment: [facility] has implemented the eGFR calculation approach that does not have a coefficient for race that conforms to the NKF-ASN Task Force Recommendations. Performed By: #### 4 6449 ####[facility] [address] [place] [address] Glenn Gudino M.D. [id number] Anion gap [Moles/Vol] 16 mmol/L Normal 10-20 [facility] Comment on above: Order Comment: [facility] has implemented the eGFR calculation approach that does not have a coefficient for race that conforms to the NKF-ASN Task Force Recommendations. Performed By: #### 4 6449 ####[facility] [address] [place], [place] [address] Glenn Gudino M.D. [id number] Calcium [Mass/Vol] 7.6 mg/dL Low 8.4-10.2 [facility] Comment on above: Order Comment: [facility] has implemented the eGFR calculation approach that does not have a coefficient for race that conforms to the NKF-ASN Task Force Recommendations. Performed By: #### 4 6449 ####[facility] [address] [place] [address] Glenn Gudino M.D. [id number] Chloride [Moles/Vol] 101 mmol/L Normal 98-108 [facility] Comment on above: Order Comment: [facility] has implemented the eGFR calculation approach that does not have a coefficient for race that conforms to the NKF-ASN Task Force Recommendations. Performed By: #### 4 6449 ####[facility] [address] [place] [address] Glenn Gudino M.D. [id number] Creatinine [Mass/Vol] 2.03 mg/dL High 0.60-1.10 [facility] Comment on above: Order Comment: [facility] has implemented the eGFR calculation approach that does not have a coefficient for race that conforms to the NKF-ASN Task Force Recommendations. Performed By: #### 4 6449 ####[facility] [address] [place] [address] Glenn Gudino M.D. [id number] EGFR 27 mL/min/1.73 m2 Low >=60 [facility] Comment on above: Order Comment: [facility] has implemented the eGFR calculation approach that does not have a coefficient for race that conforms to the NKF-ASN Task Force Recommendations. Result Comment: Joi mated GFR was calculated using the 2020 CKD-EPI creatinine equation. Performed By: #### 4 6449 ####[facility] [address] [place] [address]65 Glenn Gudino M.D. [id number] Glucose [Mass/Vol] 315 mg/dL High 65-99 [facility] Comment on above: Order Comment: [facility] has implemented the eGFR calculation approach that does not have a coefficient for race that conforms to the NKF-ASN Task Force Recommendations. Performed By: #### 4 6449 ####[facility] [address] [place] [address] Glenn Gudino M.D. [id number] HCO3 (Bld) [Moles/Vol] 25 mmol/L Normal 21-32 [facility] Comment on above: Order Comment: [facility] has implemented the eGFR calculation approach that does not have a coefficient for race that conforms to the NKF-ASN Task Force Recommendations. Performed By: #### 4 6449 ####[facility] [address] [place] [address]472 Glenn Gudino M.D. [id number] Phosphate [Mass/Vol] 4.9 mg/dL High 2.8-4.1 [facility] Comment on above: Order Comment: [facility] has implemented the eGFR calculation approach that does not have a coefficient for race that conforms to the NKF-ASN Task Force Recommendations. Performed By: #### 4 6449 ####[facility] [address] [place] [address] Glenn Gudino M.D. [id number] Potassium [Moles/Vol] 5.6 mmol/L High 3.5-5.1 [facility] Comment on above: Order Comment: [facility] has implemented the eGFR calculation approach that does not have a coefficient for race that conforms to the NKF-ASN Task Force Recommendations. Performed By: #### 4 6449 ####[facility] [address] [place] [address] Glenn Gudino M.D. [id number] Sodium [Moles/Vol] 136 mmol/L Normal 135-145 [facility] Comment on above: Order Comment: [facility] has implemented the eGFR calculation approach that does not have a coefficient for race that conforms to the NKF-ASN Task Force Recommendations. Performed By: #### 4 6449 ####[facility] [address] [place] [address] 79759 Glenn Gudino M.D. [id number] Urea nitrogen [Mass/Vol] 40 mg/dL High 8-25 [facility] Comment on above: Order Comment: [facility] has implemented the eGFR calculation approach that does not have a coefficient for race that conforms to the NKF-ASN Task Force Recommendations. Performed By: #### 4 6449 ####[facility] [address] [place] [address] Glenn Gudino M.D. [id number] Urea nitrogen/Creatinine [Mass ratio] 19.7 mg/mg Normal 10.0-20.0 [facility] Comment on above: Order Comment: [facility] has implemented the eGFR calculation approach that does not have a coefficient for race that conforms to the NKF-ASN Task Force Recommendations. Performed By: #### 4 6449 ####[facility] [address] [place], [place] [address] Glenn Gudino M.D. [id number] XR CHEST PA/APon 02-10-2024 XR CHEST PA/AP Normal [facility] Comment on above: Order Comment: Injur y/Trauma or Illness?:Illness/OtherHow long have you had these symptoms (acute/chronic)?:AcuteReason for exam?:chest tube palcement, pneumothoraxHistory of cancer?:uSurgeries, chemotherapy, or radiation?:uType of Exam?:InitialAdditional signs and symptoms?:. ANTIBODY IDENTIFICATION-Con 02-09-2024 ANTIBODY IDENTIFICATION-C Normal [facility] Comment on above: Performed By: #### 4 6427_Anti-C ####PENDING SALE TO [facility] [address] [place] [address] Nurys Oneill MD [id number] [facility] CALCIUM, IONIZEDon CALCIUM IONIZED 4.5 mg/dL Normal 4.5-5.3 [facility] Comment on above: Order Comment: Serum , non-CRRT source. Performed By: #### 4 5190 ####[facility] [address] [place] [address] Glenn Gudino M.D. [id number] CBCon 02-09-2024 AUTO NRBC 0.0 % Normal [facility] Comment on above: Performed By: #### 4 5218 ####[facility] [address] [place], [place] [address] Glenn Gudino M.D. [id number] AUTO NRBC ABS COUNT 0.00 K/mcL Normal 0.00-0.00 [facility] Comment on above: Performed By: #### 4 5218 ####[facility] [address] [place], [place] [address] Glenn Gudino M.D. [id number] Erythrocyte distribution width (RBC) [Ratio] 19.5 % High 11.6-14.8 [facility] Comment on above: Performed By: #### 4 5218 ####[facility] [address] [place] [address] Glenn Gudino M.D. [id number] Hematocrit (Bld) [Volume fraction] 23.4 % Low 36.0-46.0 [facility] Comment on above: Performed By: #### 4 5218 ####[facility] [address] [place] [address] Glenn Gudino M.D. [id number] Hemoglobin (Bld) [Mass/Vol] 7.5 g/dL Low 12.0-16.0 [facility] Comment on above: Performed By: #### 4 5218 ####[facility] [address] [place] [address] Glenn Gudino M.D. [id number] MCH (RBC) [Entitic mass] 29.2 pg Normal 26.0-34.0 [facility] Comment on above: Performed By: #### 4 5218 ####[facility] [address] [place] [address] Glenn Gudino M.D. [id number] MCV (RBC) [Entitic vol] 91.1 fL Normal 80.0-100.0 [facility] Comment on above: Performed By: #### 4 5218 ####[facility] [address] [place] [address] Glenn Gudino M.D. [id number] MEAN CORPUSCULAR HEMOGLOBIN CONC 32.1 g/dL Normal 31.0-37.0 [facility] Comment on above: Performed By: #### 4 5218 ####[facility] [address] [place] [address] Glenn Gudino M.D. [id number] Platelet mean volume (Bld) [Entitic vol] 9.6 fL Normal 9.4-12.4 [facility] Comment on above: Performed By: #### 4 [id number] ####[facility] [address] [place] [address] Glenn Gudino M.D. [id number] Platelets (Bld) [#/Vol] 281 10*3/uL Normal 150-400 [facility] Comment on above: Performed By: #### 4 [id number] ####[facility] [address] [place], [place] [address] Glenn Gudino M.D. [id number] RBC (Bld) [#/Vol] 2.57 10*6/uL Low 4.00-5.20 [facility] Comment on above: Performed By: #### 4 5218 ####[facility] [address] [place] [address] Glenn Gudino M.D. [id number] WBC (Bld) [#/Vol] 11.20 10*3/uL High 4.50-11.00 [facility] Comment on above: Performed By: #### 4 5218 ####[facility] [address] [place] [address] Glenn Gudino M.D. [id number] MAGNESIUM LEVELon 02-09-2024 Magnesium [Mass/Vol] 2.0 mg/dL Normal 1.6-2.4 [facility] Comment on above: Performed By: #### 4 6109 ####[facility] [address] [place] [address] Glenn Gudino M.D. [id number] POC GLUCOSE [facility] 024 Glucose [Mass/Vol] 198 mg/dL High 65-99 [facility] Comment on above: Performed By: #### 4 6965 ####[facility] [address] [place] [address] [id number] [facility] Glucose [Mass/Vol] 168 mg/dL High 65-99 [facility] Comment on above: Performed By: #### 4 6953 ####[facility] [address] [place] [address] [id number] [facility] Glucose [Mass/Vol] 246 mg/dL High 65- [facility] Comment on above: Performed By: #### 4 6932 ####[facility] [address] [place] [address] [id number] [facility] Glucose [Mass/Vol] 260 mg/dL High 65- [facility] Comment on above: Performed By: #### 4 6932 ####[facility] [address] [place] [address] [id number] [facility] Glucose [Mass/Vol] 255 mg/dL High 65- [facility] Comment on above: Performed By: #### 4 6932 ####[facility] [address] [place] [address] [id number] [facility] Glucose [Mass/Vol] 217 mg/dL High [address] [place] [address] Comment on above: Performed By: #### 4 6932 ####[facility] [address] [place] [address] [id number] [facility] RENAL FUNCTION PANEL 02-08 Albumin [Mass/Vol] 2.1 g/dL Low 3.2-5.2 [facility] Comment on above: Order Comment: [facility] has implemented the eGFR calculation approach that does not have a coefficient for race that conforms to the NKF-ASN Task Force Recommendations. Performed By: #### 4 6449 ####[facility] [address] [place] [address] Glenn Gudino M.D. [id number] Anion gap [Moles/Vol] 16 mmol/L Normal 10-20 [facility] Comment on above: Order Comment: [facility] has implemented the eGFR calculation approach that does not have a coefficient for race that conforms to the NKF-ASN Task Force Recommendations. Performed By: #### 4 6449 ####[facility] [address] [place] [address] Glenn Gudino M.D. [id number] Calcium [Mass/Vol] 7.6 mg/dL Low 8.4-10.2 [facility] Comment on above: Order Comment: [facility] has implemented the eGFR calculation approach that does not have a coefficient for race that conforms to the NKF-ASN Task Force Recommendations. Performed By: #### 4 6449 ####[facility] [address] [place], [place] [address] Glenn Gudino M.D. [id number] Chloride [Moles/Vol] 103 mmol/L Normal 98-108 [facility] Comment on above: Order Comment: [facility] has implemented the eGFR calculation approach that does not have a coefficient for race that conforms to the NKF-ASN Task Force Recommendations. Performed By: #### 4 6449 ####[facility] [address] [place], [place] [id number] Glenn Gudino M.D. [id number] Creatinine [Mass/Vol] 2.58 mg/dL High 0.60-1.10 [facility] Comment on above: Order Comment: [facility] has implemented the eGFR calculation approach that does not have a coefficient for race that conforms to the NKF-ASN Task Force Recommendations. Performed By: #### 4 6449 ####[facility] [address] [place] [address] Glenn Gudino M.D. [id number] EGFR 21 mL/min/1.73 m2 Low >=60 [facility] Comment on above: Order Comment: [facility] has implemented the eGFR calculation approach that does not have a coefficient for race that conforms to the NKF-ASN Task Force Recommendations. Result Comment: Joi mated GFR was calculated using the 2020 CKD-EPI creatinine equation. Performed By: #### 4 6449 ####[facility] [address] [place], [place] [address] Glenn Gudino M.D. [id number] Glucose [Mass/Vol] 233 mg/dL High 65-99 [facility] Comment on above: Order Comment: [facility] has implemented the eGFR calculation approach that does not have a coefficient for race that conforms to the NKF-ASN Task Force Recommendations. Performed By: #### 4 6449 ####[facility] [address] [place], [place] [address] Glenn Gudino M.D. [id number] HCO3 (Bld) [Moles/Vol] 22 mmol/L Normal 21-32 [facility] Comment on above: Order Comment: [facility] has implemented the eGFR calculation approach that does not have a coefficient for race that conforms to the NKF-ASN Task Force Recommendations. Performed By: #### 4 6449 ####[facility] [address] [place], [place] [address] Glenn Gudino M.D. [id number] Phosphate [Mass/Vol] 4.4 mg/dL High 2.8-4.1 [facility] Comment on above: Order Comment: [facility] has implemented the eGFR calculation approach that does not have a coefficient for race that conforms to the NKF-ASN Task Force Recommendations. Performed By: #### 4 6449 ####[facility] [address] [place], [place] [address] Glenn Gudino M.D. [id number] Potassium [Moles/Vol] 4.8 mmol/L Normal 3.5-5.1 [facility] Comment on above: Order Comment: [facility] has implemented the eGFR calculation approach that does not have a coefficient for race that conforms to the NKF-ASN Task Force Recommendations. Performed By: #### 4 6449 ####[facility] [address] [place], [place] [address] Glenn Gudino M.D. [id number] Sodium [Moles/Vol] 136 mmol/L Normal 135-145 [facility] Comment on above: Order Comment: [facility] has implemented the eGFR calculation approach that does not have a coefficient for race that conforms to the NKF-ASN Task Force Recommendations. Performed By: #### 4 6449 ####[facility] [address] [place] [address] Glenn Gudino M.D. [id number] Urea nitrogen [Mass/Vol] 52 mg/dL High 8-25 [facility] Comment on above: Order Comment: [facility] has implemented the eGFR calculation approach that does not have a coefficient for race that conforms to the NKF-ASN Task Force Recommendations. Performed By: #### 4 6449 ####[facility] [address] [place], [place] [address] Glenn Gudino M.D. [id number] Urea nitrogen/Creatinine [Mass ratio] 20.2 mg/mg High 10.0-20.0 [facility] Comment on above: Order Comment: [facility] has implemented the eGFR calculation approach that does not have a coefficient for race that conforms to the NKF-ASN Task Force Recommendations. Performed By: #### 4 6449 ####[facility] [address] [place], [place] [address] Glenn Gudino M.D. [id number] TYPE AND SCREENon 02-09-2024 TYPE AND SCREEN ABORH: O Positive AB SCREEN: Positive EXPIRATION DATE: 02/12/2024 23:59 EST [facility] Comment on above: Performed By: #### 4 6619 ####[facility]ENDING S[facility] TO [facility] [address] [place] [address] Nurys Oneill MD [id number] RMHTS XR CHEST PA/APon 02-09-2024 XR CHEST PA/AP [facility] Comment on above: Order Comment: Injur y/Trauma or Illness?:Illness/OtherHow long have you had these symptoms (acute/chronic)?:UnknownReason for exam?:chest tube palcement, pneumothoraxHistory of cancer?:uSurgeries, chemotherapy, or radiation?:uType of Exam?:InitialAdditional signs and symptoms?:. CALCIUM, IONIZEDon 09-12-202 4 CALCIUM IONIZED 4.5 mg/dL Normal 4.5-5.3 [facility] Comment on above: Order Comment: Serum , non-CRRT source. Performed By: #### 4 5190 ####[facility] [address] [place] [address] Glenn Gudino M.D. [id number] CBCon 02-08-2024 AUTO NRBC 0.0 % Normal [facility] Comment on above: Performed By: #### 4 [id number] ####[facility] [address] [place] [address] Glenn Gudino M.D. [id number] AUTO NRBC ABS COUNT 0.00 K/mcL Normal 0.00-0.00 [facility] Comment on above: Performed By: #### 4 [id number] ####[facility] [address] [place] [address] Glenn Gudino M.D. [id number] Erythrocyte distribution width (RBC) [Ratio] 19.3 % High 11.6-14.8 [facility] Comment on above: Performed By: #### 4 [id number] ####[facility] [address] [place], [place] [address] Glenn Gudino M.D. [id number] Hematocrit (Bld) [Volume fraction] 22.2 % Low 36.0-46.0 [facility] Comment on above: Performed By: #### 4 [id number] ####[facility] [address] [place], [place] [address] Glenn Gudino M.D. [id number] Hemoglobin (Bld) [Mass/Vol] 7.0 g/dL Low 12.0-16.0 [facility] Comment on above: Performed By: #### 4 [id number] ####[facility] [address] [place], [place] [address] Glenn Gudino M.D. [id number] MCH (RBC) [Entitic mass] 29.2 pg Normal 26.0-34.0 [facility] Comment on above: Performed By: #### 4 [id number] ####[facility] [address] [place], [place] [address] Glenn Gudino M.D. [id number] MCV (RBC) [Entitic vol] 92.5 fL Normal 80.0-100.0 [facility] Comment on above: Performed By: #### 4 [id number] ####[facility] [address] [place] [address] Glenn Gudino M.D. [id number] MEAN CORPUSCULAR HEMOGLOBIN CONC 31.5 g/dL Normal 31.0-37.0 [facility] Comment on above: Performed By: #### 4 [id number] ####[facility] [address] [place] [address] Glenn Gudino M.D. [id number] Platelet mean volume (Bld) [Entitic vol] 9.7 fL Normal 9.4-12.4 [facility] Comment on above: Performed By: #### 4 [id number] ####[facility] [address] [place] [address] Glenn Gudino M.D. [id number] Platelets (Bld) [#/Vol] 239 10*3/uL Normal 150-400 [facility] Comment on above: Performed By: #### 4 5218 ####[facility] [address] [place], [place] [address] Glenn Gudino M.D. [id number] RBC (Bld) [#/Vol] 2.40 10*6/uL Low 4.00-5.20 [facility] Comment on above: Performed By: #### 4 5218 ####[facility] [address] [place], [place] [address] Glenn Gudino M.D. [id number] WBC (Bld) [#/Vol] 11.15 10*3/uL High 4.50-11.00 [facility] Comment on above: Performed By: #### 4 5218 ####[facility] [address] [place] [address] Glenn Gudino M.D. [id number] CT ANGIOGRAM ABDOMEN PELVISo n 02-08-2024 CT ANGIOGRAM ABDOMEN PELVIS Normal [facility] Comment on above: Order Comment: Injur y/Trauma or Illness?:Illness/OtherHow long have you had these symptoms (acute/chronic)?:AcuteReason for exam?:Retroperitoneal hematoma, follow up, with arterial and venous phase - discussed with Dr. Li...Type of Exam?:Subsequent/Follow-upAdditional signs and symptoms?:Retroperitoneal hematoma, follow up, with arterial and venous phase - discussed with Dr. Li... MAGNESIUM LEVELon 02-08-2024 Magnesium [Mass/Vol] 1.6 mg/dL Normal 1.6-2.4 [facility] Comment on above: Performed By: #### 4 6109 ####[facility] [address] [place] [address] Glenn Gudino M.D. [id number] POC GLUCOSE - [facility] 024 Glucose [Mass/Vol] 208 mg/dL High [address] [place] [address] Comment on above: Performed By: #### 4 6909 ####[facility] [address] [place] [address] [id number] RMHPOC Glucose [Mass/Vol] 157 mg/dL High [address] [place] [address] Comment on above: Performed By: #### 4 6910 ####[facility] [address] [place] [address] [id number] [facility] Glucose [Mass/Vol] 148 mg/dL [address] Comment on above: Performed By: #### 4 6962 ####[facility] [address] [place] [address] [id number] [facility] Glucose [Mass/Vol] 170 mg/dL High 65-99 [facility] Comment on above: Performed By: #### 4 6932 ####[facility]END[facility] TO [facility] [address] [place] [address] [id number] RMOC Glucose [Mass/Vol] 178 mg/dL High 65-99 [facility] Comment on above: Performed By: #### 4 6932 ####[facility] [address] [place] [address] [id number] [facility] PT/INRon 02-08-2024 INR Coag (PPP) [Relative time] 1.2 {INR} High 0.8-1.1 [facility] Comment on above: Order Comment: Jennifer retana the induction phase of oral anticoagulation, the INR may not reflect the anticoagulation status of the patient. Therapeutic ranges for INR's are:Most clinical situations: INR 2.0-3.0Mechanical Prosthetic Valve: INR 2.5-3.5Critical: INR >5.0 Performed By: #### 4 6391 ####[facility] [address] [place] [address] Glenn Gudino M.D. [id number] PT Coag (PPP) [Time] 14.7 s High 11.8-14.3 [facility] Comment on above: Order Comment: Jennifer retana the induction phase of oral anticoagulation, the INR may not reflect the anticoagulation status of the patient. Therapeutic ranges for INR's are:Most clinical situations: INR 2.0-3.0Mechanical Prosthetic Valve: INR 2.5-3.5Critical: INR >5.0 Performed By: #### 4 6391 ####[facility] [address] [place] [address] Glenn Gudino M.D. [id number] RENAL FUNCTION PANELon 02-07 Albumin [Mass/Vol] 2.3 g/dL Low 3.2-5.2 [facility] Comment on above: Order Comment: [facility] has implemented the eGFR calculation approach that does not have a coefficient for race that conforms to the NKF-ASN Task Force Recommendations. Performed By: #### 4 6449 ####[facility] [address] [place] [address] Glenn Gudino M.D. [id number] Anion gap [Moles/Vol] 13 mmol/L Normal 10-20 [facility] Comment on above: Order Comment: [facility] has implemented the eGFR calculation approach that does not have a coefficient for race that conforms to the NKF-ASN Task Force Recommendations. Performed By: #### 4 6449 ####[facility] [address] [place] [address] Glenn Gudino M.D. [id number] Calcium [Mass/Vol] 7.3 mg/dL Low 8.4-10.2 [facility] Comment on above: Order Comment: [facility] has implemented the eGFR calculation approach that does not have a coefficient for race that conforms to the NKF-ASN Task Force Recommendations. Performed By: #### 4 6449 ####[facility] [address] [place] [address] Glenn Gudino M.D. [id number] Chloride [Moles/Vol] 101 mmol/L Normal 98-108 [facility] Comment on above: Order Comment: [facility] has implemented the eGFR calculation approach that does not have a coefficient for race that conforms to the NKF-ASN Task Force Recommendations. Performed By: #### 4 6449 ####[facility] [address] [place] [address] Glenn Gudino M.D. [id number] Creatinine [Mass/Vol] 2.03 mg/dL High 0.60-1.10 [facility] Comment on above: Order Comment: [facility] has implemented the eGFR calculation approach that does not have a coefficient for race that conforms to the NKF-ASN Task Force Recommendations. Performed By: #### 4 6449 ####[facility] [address] [place] [address] Glenn Gudino M.D. [id number] EGFR 27 mL/min/1.73 m2 Low >=60 [facility] Comment on above: Order Comment: [facility] has implemented the eGFR calculation approach that does not have a coefficient for race that conforms to the NKF-ASN Task Force Recommendations. Result Comment: Joi mated GFR was calculated using the 2020 CKD-EPI creatinine equation. Performed By: #### 4 6449 ####[facility] [address] [place] [address] Glenn Gudino M.D. [id number] Glucose [Mass/Vol] 195 mg/dL High 65-99 [facility] Comment on above: Order Comment: [facility] has implemented the eGFR calculation approach that does not have a coefficient for race that conforms to the NKF-ASN Task Force Recommendations. Performed By: #### 4 6449 ####[facility] [address] [place], [place] [address] Glenn Gudino M.D. [id number] HCO3 (Bld) [Moles/Vol] 26 mmol/L Normal 21-32 [facility] Comment on above: Order Comment: [facility] has implemented the eGFR calculation approach that does not have a coefficient for race that conforms to the NKF-ASN Task Force Recommendations. Performed By: #### 4 6449 ####[facility] [address] [place], [place] [address] Glenn Gudino M.D. [id number] Phosphate [Mass/Vol] 2.3 mg/dL Low 2.8-4.1 [facility] Comment on above: Order Comment: [facility] has implemented the eGFR calculation approach that does not have a coefficient for race that conforms to the NKF-ASN Task Force Recommendations. Performed By: #### 4 6449 ####[facility] [address] [place], [place] [address] Glenn Gudino M.D. [id number] Potassium [Moles/Vol] 3.8 mmol/L Normal 3.5-5.[address] Comment on above: Order Comment: [facility] has implemented the eGFR calculation approach that does not have a coefficient for race that conforms to the NKF-ASN Task Force Recommendations. Performed By: #### 4 6449 ####[facility] [address] [place] [address] Glenn Gudino M.D. [id number] Sodium [Moles/Vol] 136 mmol/L Normal 135-145 [facility] Comment on above: Order Comment: [facility] has implemented the eGFR calculation approach that does not have a coefficient for race that conforms to the NKF-ASN Task Force Recommendations. Performed By: #### 4 6449 ####[facility] [address] [place], [place] [address] Glenn Gudino M.D. [id number] Urea nitrogen [Mass/Vol] 33 mg/dL High 8-25 [facility] Comment on above: Order Comment: [facility] has implemented the eGFR calculation approach that does not have a coefficient for race that conforms to the NKF-ASN Task Force Recommendations. Performed By: #### 4 6449 ####[facility] [address] [place] [address] Glenn Gudino M.D. [id number] Urea nitrogen/Creatinine [Mass ratio] 16.3 mg/mg Normal 10.0-20.0 [facility] Comment on above: Order Comment: [facility] has implemented the eGFR calculation approach that does not have a coefficient for race that conforms to the NKF-ASN Task Force Recommendations. Performed By: #### 4 6449 ####[facility] [address] [place] [address] Glenn Gudino M.D. [id number] XR CHEST PA/APon 02-08-2024 XR CHEST PA/AP Normal [facility] Comment on above: Order Comment: Injur y/Trauma or Illness?:Illness/OtherHow long have you had these symptoms (acute/chronic)?:AcuteReason for exam?:chest tube palcement, pneumothoraxHistory of cancer?:uSurgeries, chemotherapy, or radiation?:uType of Exam?:OngoingAdditional signs and symptoms?:chest tube palcement, pneumothorax CALCIUM, IONIZEDon CALCIUM IONIZED 4.6 mg/dL Normal 4.5-5.3 [facility] Comment on above: Order Comment: Serum , non-CRRT source. Performed By: #### 4 5190 ####[facility] [address] [place] [address] Glenn Gudino M.D. [id number] CBCon 02-07-2024 AUTO NRBC 0.0 % Normal [facility] Comment on above: Performed By: #### 4 5218 ####[facility] [address] [place] [address] Glenn Gudino M.D. [id number] AUTO NRBC ABS COUNT 0.00 K/mcL Normal 0.00-0.00 [facility] Comment on above: Performed By: #### 4 5218 ####[facility] [address] [place] [address] Glenn Gudino M.D. [id number] Erythrocyte distribution width (RBC) [Ratio] 18.7 % High 11.6-14.8 [facility] Comment on above: Performed By: #### 4 5218 ####[facility] [address] [place], [place] [address] Glenn Gudino M.D. [id number] Hematocrit (Bld) [Volume fraction] 24.3 % Low 36.0-46.0 [facility] Comment on above: Performed By: #### 4 5218 ####[facility] [address] [place] [address] Glenn Gudino M.D. [id number] Hemoglobin (Bld) [Mass/Vol] 7.7 g/dL Low 12.0-16.0 [facility] Comment on above: Performed By: #### 4 5218 ####[facility] [address] [place] [address] Glenn Gudino M.D. [id number] MCH (RBC) [Entitic mass] 29.1 pg Normal 26.0-34.0 [facility] Comment on above: Performed By: #### 4 5218 ####[facility] [address] [place] [address] Glenn Gudino M.D. [id number] MCV (RBC) [Entitic vol] 91.7 fL Normal 80.0-100.0 [facility] Comment on above: Performed By: #### 4 5218 ####[facility] [address] [place] [address] Glenn Gudino M.D. [id number] MEAN CORPUSCULAR HEMOGLOBIN CONC 31.7 g/dL Normal 31.0-37.0 [facility] Comment on above: Performed By: #### 4 5218 ####[facility] [address] [place], [place] [address] Glenn Gudino M.D. [id number] Platelet mean volume (Bld) [Entitic vol] 9.6 fL Normal 9.4-12.4 [facility] Comment on above: Performed By: #### 4 [id number] ####[facility] [address] [place] [address] Glenn Gudino M.D. [id number] Platelets (Bld) [#/Vol] 229 10*3/uL Normal 150-400 [facility] Comment on above: Performed By: #### 4 5218 ####[facility] [address] [place] [address] Glenn Gudino M.D. [id number] RBC (Bld) [#/Vol] 2.65 10*6/uL Low 4.00-5.20 [facility] Comment on above: Performed By: #### 4 5218 ####[facility] [address] [place], [place] [address] Glenn Gudino M.D. [id number] WBC (Bld) [#/Vol] 13.25 10*3/uL High 4.50-11.00 [facility] Comment on above: Performed By: #### 4 5218 ####[facility] [address] [place] [address] Glenn Gudino M.D. [id number] CONSULTon 02-07-2024 CONSULT Normal [facility] CV IR EMBOLIZATION (NON-NEUR O) (SPECIFY LOCATION)on 02-07-2024 CV IR EMBOLIZATION (NON-NEURO) (SPECIFY LOCATION) Normal [facility] CV IR LYMPHANGIOGRAMon 02-06 CV IR LYMPHANGIOGRAM Normal [facility] MAGNESIUM LEVELon 02-07-2024 Magnesium [Mass/Vol] 1.8 mg/dL Normal 1.6-2.4 [facility] Comment on above: Performed By: #### 4 6109 ####[facility] [address] [place] [address] Glenn Gudino M.D. [id number] POC GLUCOSE - [facility] 024 Glucose [Mass/Vol] 210 mg/dL High -[address] [place] [address] Comment on above: Performed By: #### 4 6978 ####[facility] [address] [place] [address] [id number] [facility] Glucose [Mass/Vol] 135 mg/dL High [address] [place] [address] Comment on above: Performed By: #### 4 6931 ####[facility] [address] [place] [address] [id number] [facility] Glucose [Mass/Vol] 186 mg/dL [address] Comment on above: Performed By: #### 4 6932 ####[facility] [address] [place] [address] [id number] [facility] Glucose [Mass/Vol] 166 mg/dL High 65- [facility] Comment on above: Performed By: #### 4 6932 ####[facility] [address] [place] [address] [id number] [facility] Glucose [Mass/Vol] 163 mg/dL High 65- [facility] Comment on above: Performed By: #### 4 6932 ####[facility] [address] [place] [address] [id number] [facility] RENAL FUNCTION PANELon 02-06 Albumin [Mass/Vol] 2.6 g/dL Low 3.2-5.2 [facility] Comment on above: Order Comment: [facility] has implemented the eGFR calculation approach that does not have a coefficient for race that conforms to the NKF-ASN Task Force Recommendations. Performed By: #### 4 6449 ####[facility] [address] [place], [place] [address] Glenn Gudino M.D. [id number] Anion gap [Moles/Vol] 15 mmol/L Normal 10-20 [facility] Comment on above: Order Comment: [facility] has implemented the eGFR calculation approach that does not have a coefficient for race that conforms to the NKF-ASN Task Force Recommendations. Performed By: #### 4 6449 ####[facility] [address] [place] [address] Glenn Gudino M.D. [id number] Calcium [Mass/Vol] 7.7 mg/dL Low 8.4-10.2 [facility] Comment on above: Order Comment: [facility] has implemented the eGFR calculation approach that does not have a coefficient for race that conforms to the NKF-ASN Task Force Recommendations. Performed By: #### 4 6449 ####[facility] [address] [place], [place] [address] Glenn Gudino M.D. [id number] Chloride [Moles/Vol] 99 mmol/L Normal 98-108 [facility] Comment on above: Order Comment: [facility] has implemented the eGFR calculation approach that does not have a coefficient for race that conforms to the NKF-ASN Task Force Recommendations. Performed By: #### 4 6449 ####[facility] [address] [place] [address] Glenn Gudino M.D. [id number] Creatinine [Mass/Vol] 2.72 mg/dL High 0.60-1.10 [facility] Comment on above: Order Comment: [facility] has implemented the eGFR calculation approach that does not have a coefficient for race that conforms to the NKF-ASN Task Force Recommendations. Performed By: #### 4 6449 ####[facility] [address] [place], [place] [address] Glenn Gudino M.D. [id number] EGFR 19 mL/min/1.73 m2 Low >=60 [facility] Comment on above: Order Comment: [facility] has implemented the eGFR calculation approach that does not have a coefficient for race that conforms to the NKF-ASN Task Force Recommendations. Result Comment: Joi mated GFR was calculated using the 2020 CKD-EPI creatinine equation. Performed By: #### 4 6449 ####[facility] [address] [place], [place] [address] Glenn Gudino M.D. [id number] Glucose [Mass/Vol] 161 mg/dL High 65-99 [facility] Comment on above: Order Comment: [facility] has implemented the eGFR calculation approach that does not have a coefficient for race that conforms to the NKF-ASN Task Force Recommendations. Performed By: #### 4 6449 ####[facility] [address] [place], [place] [address] Glenn Gudino M.D. [id number] HCO3 (Bld) [Moles/Vol] 26 mmol/L Normal 21-32 [facility] Comment on above: Order Comment: [facility] has implemented the eGFR calculation approach that does not have a coefficient for race that conforms to the NKF-ASN Task Force Recommendations. Performed By: #### 4 6449 ####[facility] [address] [place], [place] [address] Glenn Gudino M.D. [id number] Phosphate [Mass/Vol] 2.1 mg/dL Low 2.8-4.1 [facility] Comment on above: Order Comment: [facility] has implemented the eGFR calculation approach that does not have a coefficient for race that conforms to the NKF-ASN Task Force Recommendations. Performed By: #### 4 6449 ####[facility] [address] [address] [place], [place] [id number] Glenn Gudino M.D. [id number] Potassium [Moles/Vol] 3.9 mmol/L Normal 3.5-5.1 [facility] Comment on above: Order Comment: [facility] has implemented the eGFR calculation approach that does not have a coefficient for race that conforms to the NKF-ASN Task Force Recommendations. Result Comment: Slig htly Hemolyzed Performed By: #### 4 6449 ####[facility] [address] [place], [place] [address] Glenn Gudino M.D. [id number] Sodium [Moles/Vol] 136 mmol/L Normal 135-145 [facility] Comment on above: Order Comment: [facility] has implemented the eGFR calculation approach that does not have a coefficient for race that conforms to the NKF-ASN Task Force Recommendations. Performed By: #### 4 6449 ####[facility] [address] [place] [address]691 Glenn Gudino M.D. [id number] Urea nitrogen [Mass/Vol] 42 mg/dL High 8-25 [facility] Comment on above: Order Comment: [facility] has implemented the eGFR calculation approach that does not have a coefficient for race that conforms to the NKF-ASN Task Force Recommendations. Performed By: #### 4 6449 ####[facility] [address] [place] [address] Glenn Gudino M.D. [id number] Urea nitrogen/Creatinine [Mass ratio] 15.4 mg/mg Normal 10.0-20.0 [facility] Comment on above: Order Comment: [facility] has implemented the eGFR calculation approach that does not have a coefficient for race that conforms to the NKF-ASN Task Force Recommendations. Performed By: #### 4 6449 ####[facility] [address] [place] [address] Glenn Gudino M.D. [id number] XR CHEST PA/APon 02-07-2024 XR CHEST PA/AP Normal [facility] Comment on above: Order Comment: Injur y/Trauma or Illness?:Illness/OtherHow long have you had these symptoms (acute/chronic)?:AcuteReason for exam?:chest tube palcement, pneumothoraxHistory of cancer?:uSurgeries, chemotherapy, or radiation?:uType of Exam?:InitialAdditional signs and symptoms?:. ANTIBODY IDENTIFICATION-Con 02-06-2024 ANTIBODY IDENTIFICATION-C Normal [facility] Comment on above: Performed By: #### 4 6427_Anti-C ####PENDING SALE TO [facility] [address] [place] [address] Nurys Oneill MD [id number] [facility] CALCIUM, IONIZEDon CALCIUM IONIZED 4.6 mg/dL Normal 4.5-5.3 [facility] Comment on above: Order Comment: Serum , non-CRRT source. Performed By: #### 4 5190 ####[facility] [address] [place] [address] Glenn Gudino M.D. [id number] CBCon 02-06-2024 AUTO NRBC 0.0 % Normal [facility] Comment on above: Performed By: #### 4 [id number] ####[facility] [address] [place], [place] [address] Glenn Gudino M.D. [id number] AUTO NRBC ABS COUNT 0.00 K/mcL Normal 0.00-0.00 [facility] Comment on above: Performed By: #### 4 [id number] ####[facility] [address] [place], [place] [address] Glenn Gudino M.D. [id number] Erythrocyte distribution width (RBC) [Ratio] 18.5 % High 11.6-14.8 [facility] Comment on above: Performed By: #### 4 [id number] ####[facility] [address] [place], [place] [address] Glenn Gudino M.D. [id number] Hematocrit (Bld) [Volume fraction] 24.0 % Low 36.0-46.0 [facility] Comment on above: Performed By: #### 4 [id number] ####[facility] [address] [place], [place] [address] Glenn Gudino M.D. [id number] Hemoglobin (Bld) [Mass/Vol] 7.5 g/dL Low 12.0-16.0 [facility] Comment on above: Performed By: #### 4 [id number] ####[facility] [address] [place], [place] [address] Glenn Gudino M.D. [id number] MCH (RBC) [Entitic mass] 28.4 pg Normal 26.0-34.0 [facility] Comment on above: Performed By: #### 4 5218 ####[facility] [address] [place], [place] [address] Glenn Gudino M.D. [id number] MCV (RBC) [Entitic vol] 90.9 fL Normal 80.0-100.0 [facility] Comment on above: Performed By: #### 4 [id number] ####[facility] [address] [place] [address] Glenn Gudino M.D. [id number] MEAN CORPUSCULAR HEMOGLOBIN CONC 31.3 g/dL Normal 31.0-37.0 [facility] Comment on above: Performed By: #### 4 [id number] ####[facility] [address] [place], [place] [address] Glenn Gudino M.D. [id number] Platelet mean volume (Bld) [Entitic vol] 10.2 fL Normal 9.4-12.4 [facility] Comment on above: Performed By: #### 4 [id number] ####[facility] [address] [place], [place] [address] Glenn Gudino M.D. [id number] Platelets (Bld) [#/Vol] 197 10*3/uL Normal 150-400 [facility] Comment on above: Performed By: #### 4 [id number] ####[facility] [address] [place], [place] [address] Glenn Gudino M.D. [id number] RBC (Bld) [#/Vol] 2.64 10*6/uL Low 4.00-5.20 [facility] Comment on above: Performed By: #### 4 5218 ####[facility] [address] [place] [address] Glenn Gudino M.D. [id number] WBC (Bld) [#/Vol] 11.41 10*3/uL High 4.50-11.00 [facility] Comment on above: Performed By: #### 4 5218 ####[facility] [address] [place] [address] Glenn Gudino M.D. [id number] MAGNESIUM LEVELon 02-06-2024 Magnesium [Mass/Vol] 1.9 mg/dL Normal 1.6-2.4 [facility] Comment on above: Performed By: #### 4 6109 ####[facility] [address] [place] [address] Glenn Gudino M.D. [id number] POC GLUCOSE - [facility] 024 Glucose [Mass/Vol] 156 mg/dL High [address] [place] [address] Comment on above: Performed By: #### 4 6932 ####[facility] [address] [place] [address] [id number] [facility] Glucose [Mass/Vol] 135 mg/dL [address] Comment on above: Performed By: #### 4 6941 ####[facility] [address] [place] [address] [id number] [facility] Glucose [Mass/Vol] 150 mg/dL [address] Comment on above: Performed By: #### 4 6932 ####[facility] [address] [place] [address] [id number] [facility] Glucose [Mass/Vol] 196 mg/dL [address] Comment on above: Performed By: #### 4 6932 ####[facility] [address] [place] [address] [id number] [facility] Glucose [Mass/Vol] 176 mg/dL [address] Comment on above: Performed By: #### 4 0383 ####[facility] [address] [place] [address] [id number] [facility] Glucose [Mass/Vol] 161 mg/dL [address] Comment on above: Performed By: #### 4 8187 ####[facility] [address] [place] [address] [id number] [facility] RENAL FUNCTION PANELon 02-05 Albumin [Mass/Vol] 2.5 g/dL Low 3.2-5.2 [facility] Comment on above: Order Comment: [facility] has implemented the eGFR calculation approach that does not have a coefficient for race that conforms to the NKF-ASN Task Force Recommendations. Performed By: #### 4 6449 ####[facility] [address] [place] [address] Glenn Gudino M.D. [id number] Anion gap [Moles/Vol] 12 mmol/L Normal 10-20 [facility] Comment on above: Order Comment: [facility] has implemented the eGFR calculation approach that does not have a coefficient for race that conforms to the NKF-ASN Task Force Recommendations. Performed By: #### 4 6449 ####[facility] [address] [place], [place] [address] Glenn Gudino M.D. [id number] Calcium [Mass/Vol] 7.8 mg/dL Low 8.4-10.2 [facility] Comment on above: Order Comment: [facility] has implemented the eGFR calculation approach that does not have a coefficient for race that conforms to the NKF-ASN Task Force Recommendations. Performed By: #### 4 6449 ####[facility] [address] [place], [place] [address] Glenn Gudino M.D. [id number] Chloride [Moles/Vol] 97 mmol/L Low 98-108 [facility] Comment on above: Order Comment: [facility] has implemented the eGFR calculation approach that does not have a coefficient for race that conforms to the NKF-ASN Task Force Recommendations. Performed By: #### 4 6449 ####[facility] [address] [place] [address] Glenn Gudino M.D. [id number] Creatinine [Mass/Vol] 1.97 mg/dL High 0.60-1.10 [facility] Comment on above: Order Comment: [facility] has implemented the eGFR calculation approach that does not have a coefficient for race that conforms to the NKF-ASN Task Force Recommendations. Performed By: #### 4 6449 ####[facility] [address] [place] [address] Glenn Gudino M.D. [id number] EGFR 28 mL/min/1.73 m2 Low >=60 [facility] Comment on above: Order Comment: [facility] has implemented the eGFR calculation approach that does not have a coefficient for race that conforms to the NKF-ASN Task Force Recommendations. Result Comment: Joi mated GFR was calculated using the 2020 CKD-EPI creatinine equation. Performed By: #### 4 6449 ####[facility] [address] [place] [address] 24077 Glenn Gudino M.D. [id number] Glucose [Mass/Vol] 143 mg/dL High 65-99 [facility] Comment on above: Order Comment: [facility] has implemented the eGFR calculation approach that does not have a coefficient for race that conforms to the NKF-ASN Task Force Recommendations. Performed By: #### 4 6449 ####[facility] [address] [place] [address]112 Glenn Gudino M.D. [id number] HCO3 (Bld) [Moles/Vol] 28 mmol/L Normal 21-32 [facility] Comment on above: Order Comment: [facility] has implemented the eGFR calculation approach that does not have a coefficient for race that conforms to the NKF-ASN Task Force Recommendations. Performed By: #### 4 6449 ####[facility] [address] [place] [address]117 Glenn Gudino M.D. [id number] Phosphate [Mass/Vol] 1.7 mg/dL Low 2.8-4.1 [facility] Comment on above: Order Comment: [facility] has implemented the eGFR calculation approach that does not have a coefficient for race that conforms to the NKF-ASN Task Force Recommendations. Performed By: #### 4 6449 ####[facility] [address] [place] [address] 52752 Glenn Gudino M.D. [id number] Potassium [Moles/Vol] 3.5 mmol/L Normal 3.5-5.1 [facility] Comment on above: Order Comment: [facility] has implemented the eGFR calculation approach that does not have a coefficient for race that conforms to the NKF-ASN Task Force Recommendations. Performed By: #### 4 6449 ####[facility] [address] [place] [address] 23137 Glenn Gudino M.D. [id number] Sodium [Moles/Vol] 133 mmol/L Low 135-145 [facility] Comment on above: Order Comment: [facility] has implemented the eGFR calculation approach that does not have a coefficient for race that conforms to the NKF-ASN Task Force Recommendations. Performed By: #### 4 6449 ####[facility] [address] [place] [address] 99124 Glenn Gudino M.D. [id number] Urea nitrogen [Mass/Vol] 26 mg/dL High 8-25 [facility] Comment on above: Order Comment: [facility] has implemented the eGFR calculation approach that does not have a coefficient for race that conforms to the NKF-ASN Task Force Recommendations. Performed By: #### 4 6449 ####[facility] [address] [place] [address] 80995 Glenn Gudino M.D. [id number] Urea nitrogen/Creatinine [Mass ratio] 13.2 mg/mg Normal 10.0-20.0 [facility] Comment on above: Order Comment: [facility] has implemented the eGFR calculation approach that does not have a coefficient for race that conforms to the NKF-ASN Task Force Recommendations. Performed By: #### 4 6449 ####[facility] [address] [place], [place] [address] Glenn Gudino M.D. [id number] TYPE AND SCREENon 02-06-2024 TYPE AND SCREEN ABORH: O Positive AB SCREEN: Positive EXPIRATION DATE: 02/09/2024 23:59 EST Normal [facility] Comment on above: Performed By: #### 4 6619 ####PENDING SALE TO [facility] [address] [place] [address] Nurys Oneill MD [id number] [facility] XR CHEST PA/APon 02-06-2024 XR CHEST PA/AP [facility] Comment on above: Order Comment: Injur y/Trauma or Illness?:Illness/OtherHow long have you had these symptoms (acute/chronic)?:UnknownReason for exam?:chest tube palcement, pneumothoraxHistory of cancer?:uSurgeries, chemotherapy, or radiation?:uType of Exam?:OngoingAdditional signs and symptoms?:chest tube palcement, pneumothorax CALCIUM, IONIZEDon CALCIUM IONIZED 4.6 mg/dL Normal 4.5-5.3 [facility] Comment on above: Order Comment: Serum , non-CRRT source. Performed By: #### 4 5190 ####[facility] [address] [place], [place] [address] Glenn Gudino M.D. [id number] CBCon 02-05-2024 AUTO NRBC 0.0 % Normal [facility] Comment on above: Performed By: #### 4 5218 ####[facility] [address] [place], [place] [address] Glenn Gudino M.D. [id number] AUTO NRBC ABS COUNT 0.00 K/mcL Normal 0.00-0.00 [facility] Comment on above: Performed By: #### 4 5218 ####[facility] [address] [place], [place] [address] Glenn Gudino M.D. [id number] Erythrocyte distribution width (RBC) [Ratio] 18.2 % High 11.6-14.8 [facility] Comment on above: Performed By: #### 4 5218 ####[facility] [address] [place], [place] [address] Glenn Gudino M.D. [id number] Hematocrit (Bld) [Volume fraction] 27.7 % Low 36.0-46.0 [facility] Comment on above: Performed By: #### 4 5218 ####[facility] [address] [place] [address] Glenn Gudino M.D. [id number] Hemoglobin (Bld) [Mass/Vol] 8.7 g/dL Low 12.0-16.0 [facility] Comment on above: Performed By: #### 4 5218 ####[facility] [address] [place] [address] Glenn Gudino M.D. [id number] MCH (RBC) [Entitic mass] 28.8 pg Normal 26.0-34.0 [facility] Comment on above: Performed By: #### 4 5218 ####[facility] [address] [place], [place] [address] Glenn Gudino M.D. [id number] MCV (RBC) [Entitic vol] 91.7 fL Normal 80.0-100.0 [facility] Comment on above: Performed By: #### 4 5218 ####[facility] [address] [place], [place] [address] Glenn Gudino M.D. [id number] MEAN CORPUSCULAR HEMOGLOBIN CONC 31.4 g/dL Normal 31.0-37.0 [facility] Comment on above: Performed By: #### 4 5218 ####[facility] [address] [place], [place] [address] Glenn Gudino M.D. [id number] Platelet mean volume (Bld) [Entitic vol] 9.5 fL Normal 9.4-12.4 [facility] Comment on above: Performed By: #### 4 [id number] ####[facility] [address] [place] [address]322 Glenn Gudino M.D. [id number] Platelets (Bld) [#/Vol] 226 10*3/uL Normal 150-400 [facility] Comment on above: Performed By: #### 4 5218 ####[facility] [address] [place] [address] 24274 Glenn Gudino M.D. [id number] RBC (Bld) [#/Vol] 3.02 10*6/uL Low 4.00-5.20 [facility] Comment on above: Performed By: #### 4 5218 ####[facility] [address] [place] [address]013 Glenn Gudino M.D. [id number] WBC (Bld) [#/Vol] 15.07 10*3/uL High 4.50-11.00 [facility] Comment on above: Performed By: #### 4 5218 ####[facility] [address] [place] [address] 42555 Glenn Gudino M.D. [id number] COMPREHENSIVE METABOLIC PANE [facility] 02-05-2024 Albumin [Mass/Vol] 2.5 g/dL Low 3.2-5.2 [facility] Comment on above: Order Comment: [facility] has implemented the eGFR calculation approach that does not have a coefficient for race that conforms to the NKF-ASN Task Force Recommendations. Performed By: #### 4 6126 ####[facility] [address] [place] [address]27 Glenn Gudino M.D. [id number] ALP [Catalytic activity/Vol] 50 U/L Normal 40-150 [facility] Comment on above: Order Comment: [facility] has implemented the eGFR calculation approach that does not have a coefficient for race that conforms to the NKF-ASN Task Force Recommendations. Performed By: #### 4 6126 ####[facility] [address] [place], [place] [address] Glenn Gudino M.D. [id number] ALT [Catalytic activity/Vol] 7 U/L Normal 0-35 U/L [facility] Comment on above: Order Comment: [facility] has implemented the eGFR calculation approach that does not have a coefficient for race that conforms to the NKF-ASN Task Force Recommendations. Performed By: #### 4 6126 ####[facility] [address] [place], [place] [address] Glenn Gudino M.D. [id number] Anion gap [Moles/Vol] 12 mmol/L Normal 10-20 [facility] Comment on above: Order Comment: [facility] has implemented the eGFR calculation approach that does not have a coefficient for race that conforms to the NKF-ASN Task Force Recommendations. Performed By: #### 4 6126 ####[facility] [address] [place], [place] [address] Glenn Gudino M.D. [id number] AST [Catalytic activity/Vol] 23 U/L Normal 0-35 U/L [facility] Comment on above: Order Comment: [facility] has implemented the eGFR calculation approach that does not have a coefficient for race that conforms to the NKF-ASN Task Force Recommendations. Performed By: #### 4 6126 ####[facility] [address] [place], [place] [address] Glenn Gudino M.D. [id number] Bilirubin [Mass/Vol] 0.4 mg/dL Normal 0.0-1.3 [facility] Comment on above: Order Comment: [facility] has implemented the eGFR calculation approach that does not have a coefficient for race that conforms to the NKF-ASN Task Force Recommendations. Performed By: #### 4 6126 ####[facility] [address] [place], [place] [address] Glenn Gudino M.D. [id number] Calcium [Mass/Vol] 7.8 mg/dL Low 8.4-10.2 [facility] Comment on above: Order Comment: [facility] has implemented the eGFR calculation approach that does not have a coefficient for race that conforms to the NKF-ASN Task Force Recommendations. Performed By: #### 4 6126 ####[facility] [address] [place] [address]122 Glenn Gudino M.D. [id number] Chloride [Moles/Vol] 96 mmol/L Low 98-108 [facility] Comment on above: Order Comment: [facility] has implemented the eGFR calculation approach that does not have a coefficient for race that conforms to the NKF-ASN Task Force Recommendations. Performed By: #### 4 6126 ####[facility] [address] [place] [address] 69096 Glenn Gudino M.D. [id number] Creatinine [Mass/Vol] 2.82 mg/dL High 0.60-1.10 [facility] Comment on above: Order Comment: [facility] has implemented the eGFR calculation approach that does not have a coefficient for race that conforms to the NKF-ASN Task Force Recommendations. Performed By: #### 4 6126 ####[facility] [address] [place] [address] 23475 Glenn Gudino M.D. [id number] EGFR 19 mL/min/1.73 m2 Low >=60 [facility] Comment on above: Order Comment: [facility] has implemented the eGFR calculation approach that does not have a coefficient for race that conforms to the NKF-ASN Task Force Recommendations. Result Comment: Joi mated GFR was calculated using the 2020 CKD-EPI creatinine equation. Performed By: #### 4 6126 ####[facility] [address] [place] [address] 45132 Glenn Gudino M.D. [id number] Glucose [Mass/Vol] 173 mg/dL High 65-99 [facility] Comment on above: Order Comment: [facility] has implemented the eGFR calculation approach that does not have a coefficient for race that conforms to the NKF-ASN Task Force Recommendations. Performed By: #### 4 6126 ####[facility] [address] [place], [place] [address] Glenn Gudino M.D. [id number] HCO3 (Bld) [Moles/Vol] 28 mmol/L Normal 21-32 [facility] Comment on above: Order Comment: [facility] has implemented the eGFR calculation approach that does not have a coefficient for race that conforms to the NKF-ASN Task Force Recommendations. Performed By: #### 4 6126 ####[facility] [address] [place], [place] [address] Glenn Gudino M.D. [id number] Potassium [Moles/Vol] 4.1 mmol/L Normal 3.5-5.1 [facility] Comment on above: Order Comment: [facility] has implemented the eGFR calculation approach that does not have a coefficient for race that conforms to the NKF-ASN Task Force Recommendations. Performed By: #### 4 6126 ####[facility] [address] [place], [place] [address] Glenn Gudino M.D. [id number] Protein [Mass/Vol] 5.1 g/dL Low 6.0-8.0 [facility] Comment on above: Order Comment: [facility] has implemented the eGFR calculation approach that does not have a coefficient for race that conforms to the NKF-ASN Task Force Recommendations. Performed By: #### 4 6126 ####[facility] [address] [place], [place] [address] Glenn Gudino M.D. [id number] Sodium [Moles/Vol] 132 mmol/L Low 135-145 [facility] Comment on above: Order Comment: [facility] has implemented the eGFR calculation approach that does not have a coefficient for race that conforms to the NKF-ASN Task Force Recommendations. Performed By: #### 4 6126 ####[facility] [address] [place] [address] 09740 Glenn Gudino M.D. [id number] Urea nitrogen [Mass/Vol] 34 mg/dL High 8-25 [facility] Comment on above: Order Comment: [facility] has implemented the eGFR calculation approach that does not have a coefficient for race that conforms to the NKF-ASN Task Force Recommendations. Performed By: #### 4 6126 ####[facility] [address] [place] [address] 48462 Glenn Gudino M.D. [id number] Urea nitrogen/Creatinine [Mass ratio] 12.1 mg/mg Normal 10.0-20.0 [facility] Comment on above: Order Comment: [facility] has implemented the eGFR calculation approach that does not have a coefficient for race that conforms to the NKF-ASN Task Force Recommendations. Performed By: #### 4 6126 ####[facility] [address] [place] [address] 12982 Glenn Gudino M.D. [id number] MAGNESIUM LEVELon 02-05-2024 Magnesium [Mass/Vol] 2.1 mg/dL Normal 1.6-2.4 [facility] Comment on above: Performed By: #### 4 6109 ####[facility] [address] [place] [address] 36591 Glenn Gudino M.D. [id number] PHOSPHORUSon 02-05-2024 Phosphate [Mass/Vol] 2.8 mg/dL Normal 2.8-4.1 [facility] Comment on above: Performed By: #### 4 6299 ####[facility] [address] [place] [address] 81002 Glenn Gudino M.D. [id number] POC GLUCOSE - RALSon 024 Glucose [Mass/Vol] 143 mg/dL High [address] [place] [address] Comment on above: Performed By: #### 4 6978 ####[facility] [address] [place] [address] [id number] [facility] Glucose [Mass/Vol] 186 mg/dL High [address] [place] [address] Comment on above: Performed By: #### 4 3649 ####[facility] [address] [place] [address] [id number] [facility] Glucose [Mass/Vol] 97 mg/dL Normal [address] [place] [address] Comment on above: Performed By: #### 4 7621 ####[facility] [address] [place] [address] [id number] [facility] Glucose [Mass/Vol] 201 mg/dL High [address] [place] [address] Comment on above: Performed By: #### 4 8225 ####[facility] [address] [place] [address] [id number] [facility] Glucose [Mass/Vol] 193 mg/dL High [address] [place] [address] Comment on above: Performed By: #### 4 6802 ####[facility] [address] [place] [address] [id number] [facility] Glucose [Mass/Vol] 185 mg/dL High [address] [place] [address] Comment on above: Performed By: #### 4 8220 ####[facility] [address] [place] [address] [id number] [facility] Glucose [Mass/Vol] 172 mg/dL High [address] [place] [address] Comment on above: Performed By: #### 4 1925 ####[facility] [address] [place] [address] [id number] [facility] PREALBUMINon 02-05-2024 Prealbumin [Mass/Vol] 10.7 mg/dL Low 20.0-40.0 [facility] Comment on above: Performed By: #### 4 8083 ####[facility] [address] [place] [address] 35613 Glenn Gudino M.D. [id number] TRIGLYCERIDESon 02-05-2024 Triglyceride [Mass/Vol] 249 mg/dL High 30-150 [facility] Comment on above: Result Comment: [facility]ila onal Cholesterol Education Program Guidelines: TriglycerideNormal: <150 mg/dLBorderline High: 150-199 mg/dLHigh: 200-499 mg/dLVery High: greater than or equal to 500 mg/dL Performed By: #### 4 6606 ####[facility] [address] [place] [address] 68796 Glenn Gudino M.D. [id number] XR CHEST PA/APon 02-05-2024 XR CHEST PA/AP Normal [facility] Comment on above: Order Comment: Injur y/Trauma or Illness?:Illness/OtherHow long have you had these symptoms (acute/chronic)?:UnknownReason for exam?:chest tube palcement, pneumothoraxHistory of cancer?:uSurgeries, chemotherapy, or radiation?:uType of Exam?:InitialAdditional signs and symptoms?:. CALCIUM, IONIZEDon CALCIUM IONIZED 4.6 mg/dL Normal 4.5-5.3 [facility] Comment on above: Order Comment: Serum , non-CRRT source. Performed By: #### 4 5190 ####[facility] [address] [place] [address] 41946 Glenn Gudino M.D. [id number] CBCon 02-04-2024 AUTO NRBC 0.0 % Normal [facility] Comment on above: Performed By: #### 4 [id number] ####[facility] [address] [place] [address] 16353 Glenn Gudino M.D. [id number] AUTO NRBC ABS COUNT 0.00 K/mcL Normal 0.00-0.00 [facility] Comment on above: Performed By: #### 4 5218 ####[facility] [address] [place], [place] [address] Glenn Gudino M.D. [id number] Erythrocyte distribution width (RBC) [Ratio] 18.1 % High 11.6-14.8 [facility] Comment on above: Performed By: #### 4 5218 ####[facility] [address] [place] [address] Glenn Gudino M.D. [id number] Hematocrit (Bld) [Volume fraction] 27.1 % Low 36.0-46.0 [facility] Comment on above: Performed By: #### 4 5218 ####[facility] [address] [place], [place] [address] Glenn Gudino M.D. [id number] Hemoglobin (Bld) [Mass/Vol] 8.5 g/dL Low 12.0-16.0 [facility] Comment on above: Performed By: #### 4 1218 ####[facility] [address] [place], [place] [address] Glenn Gudino M.D. [id number] MCH (RBC) [Entitic mass] 28.6 pg Normal 26.0-34.0 [facility] Comment on above: Performed By: #### 4 5218 ####[facility] [address] [place], [place] [address] Glenn Gudino M.D. [id number] MCV (RBC) [Entitic vol] 91.2 fL Normal 80.0-100.0 [facility] Comment on above: Performed By: #### 4 8718 ####[facility] [address] [place], [place] [address] Glenn Gudino M.D. [id number] MEAN CORPUSCULAR HEMOGLOBIN CONC 31.4 g/dL Normal 31.0-37.0 [facility] Comment on above: Performed By: #### 4 1018 ####[facility] [address] [place] [address] 74845 Glenn Gudino M.D. [id number] Platelet mean volume (Bld) [Entitic vol] 10.0 fL Normal 9.4-12.4 [facility] Comment on above: Performed By: #### 4 5218 ####[facility] [address] [place] [address] 66388 Glenn Gudino M.D. [id number] Platelets (Bld) [#/Vol] 215 10*3/uL Normal 150-400 [facility] Comment on above: Performed By: #### 4 5218 ####[facility] [address] [place], [place] [address] Glenn Gudino M.D. [id number] RBC (Bld) [#/Vol] 2.97 10*6/uL Low 4.00-5.20 [facility] Comment on above: Performed By: #### 4 5218 ####[facility] [address] [place], [place] [address] Glenn Gudino M.D. [id number] WBC (Bld) [#/Vol] 13.18 10*3/uL High 4.50-11.00 [facility] Comment on above: Performed By: #### 4 5218 ####[facility] [address] [place], [place] [address] Glenn Gudino M.D. [id number] COMPREHENSIVE METABOLIC PANE Magdaleno 02-04-2024 ALP [Catalytic activity/Vol] 47 U/L Normal 40-150 [facility] Comment on above: Order Comment: [facility] has implemented the eGFR calculation approach that does not have a coefficient for race that conforms to the NKF-ASN Task Force Recommendations. Performed By: #### 4 6126 ####[facility] [address] [place] [address] 25979 Glenn Gudino M.D. [id number] ALT [Catalytic activity/Vol] 6 U/L Normal 0-35 U/L [facility] Comment on above: Order Comment: [facility] has implemented the eGFR calculation approach that does not have a coefficient for race that conforms to the NKF-ASN Task Force Recommendations. Performed By: #### 4 6126 ####[facility] [address] [place], [place] [address] Glenn Gudino M.D. [id number] AST [Catalytic activity/Vol] 20 U/L Normal 0-35 U/L [facility] Comment on above: Order Comment: [facility] has implemented the eGFR calculation approach that does not have a coefficient for race that conforms to the NKF-ASN Task Force Recommendations. Performed By: #### 4 6126 ####[facility] [address] [place], [place] [address] Glenn Gudino M.D. [id number] Bilirubin [Mass/Vol] 0.6 mg/dL Normal 0.0-1.3 [facility] Comment on above: Order Comment: [facility] has implemented the eGFR calculation approach that does not have a coefficient for race that conforms to the NKF-ASN Task Force Recommendations. Performed By: #### 4 6126 ####[facility] [address] [place] [address] 41455 Glenn Gudino M.D. [id number] Protein [Mass/Vol] 5.2 g/dL Low 6.0-8.0 [facility] Comment on above: Order Comment: [facility] has implemented the eGFR calculation approach that does not have a coefficient for race that conforms to the NKF-ASN Task Force Recommendations. Performed By: #### 4 6126 ####[facility] [address] [place] [address] 37315 Glenn Gudino M.D. [id number] MAGNESIUM LEVELon 02-04-2024 Magnesium [Mass/Vol] 2.0 mg/dL Normal 1.6-2.4 [facility] Comment on above: Performed By: #### 4 6109 ####[facility] [address] [place] [address] Glenn Gudino M.D. [id number] POC GLUCOSE - [facility] 024 Glucose [Mass/Vol] 136 mg/dL High [address] [place] [address] Comment on above: Performed By: #### 4 6902 ####[facility] [address] [place] [address] [id number] [facility] Glucose [Mass/Vol] 181 mg/dL High [address] [place] [address] Comment on above: Performed By: #### 4 0383 ####[facility] [address] [place] [address] [id number] [facility] Glucose [Mass/Vol] 178 mg/dL High [address] [place] [address] Comment on above: Performed By: #### 4 1223 ####[facility] [address] [place] [address] [id number] [facility] Glucose [Mass/Vol] 155 mg/dL [address] Comment on above: Performed By: #### 4 3041 ####[facility] [address] [place] [address] [id number] [facility] Glucose [Mass/Vol] 145 mg/dL High [address] [place] [address] Comment on above: Performed By: #### 4 2906 ####[facility] [address] [place] [address] [id number] [facility] Glucose [Mass/Vol] 85 mg/dL Normal [address] [place] [address] Comment on above: Performed By: #### 4 3088 ####[facility] [address] [place] [address] [id number] [facility] PREALBUMINon 02-04-2024 Prealbumin [Mass/Vol] 8.8 mg/dL Low 20.0-40.0 [facility] Comment on above: Performed By: #### 4 1749 ####[facility] [address] [place] [address] 82007 Glenn Gudino M.D. [id number] RENAL FUNCTION PANELon 02-03 Albumin [Mass/Vol] 2.6 g/dL Low 3.2-5.2 [facility] Comment on above: Order Comment: [facility] has implemented the eGFR calculation approach that does not have a coefficient for race that conforms to the NKF-ASN Task Force Recommendations. Performed By: #### 4 6449 ####[facility] [address] [place] [address] Glenn Gudino M.D. [id number] Performed By: #### 4 6126 ####[facility] [address] [place], [place] [address] Glenn Gudino M.D. [id number] Anion gap [Moles/Vol] 15 mmol/L Normal 10-20 [facility] Comment on above: Order Comment: [facility] has implemented the eGFR calculation approach that does not have a coefficient for race that conforms to the NKF-ASN Task Force Recommendations. Performed By: #### 4 6449 ####[facility] [address] [place], [place] [address] Glenn Gudino M.D. [id number] Performed By: #### 4 6126 ####[facility] [address] [place] [address] 85249 Glenn Gudino M.D. [id number] Calcium [Mass/Vol] 8.1 mg/dL Low 8.4-10.2 [facility] Comment on above: Order Comment: [facility] has implemented the eGFR calculation approach that does not have a coefficient for race that conforms to the NKF-ASN Task Force Recommendations. Performed By: #### 4 6449 ####[facility] [address] [place], [place] [address] Glenn Gudino M.D. [id number] Performed By: #### 4 6126 ####[facility] [address] [place] [address] Glenn Gudino M.D. [id number] Chloride [Moles/Vol] 95 mmol/L Low 98-108 [facility] Comment on above: Order Comment: [facility] has implemented the eGFR calculation approach that does not have a coefficient for race that conforms to the NKF-ASN Task Force Recommendations. Performed By: #### 4 6449 ####[facility] [address] [place] [address] Glenn Gudino M.D. [id number] Performed By: #### 4 6126 ####[facility] [address] [place] [address] Glenn Gudino M.D. [id number] Creatinine [Mass/Vol] 2.14 mg/dL High 0.60-1.10 [facility] Comment on above: Order Comment: [facility] has implemented the eGFR calculation approach that does not have a coefficient for race that conforms to the NKF-ASN Task Force Recommendations. Performed By: #### 4 6449 ####[facility] [address] [place] [address] Glenn Gudino M.D. [id number] Performed By: #### 4 6126 ####[facility] [address] [place] [address] Glenn Gudino M.D. [id number] EGFR 26 mL/min/1.73 m2 Low >=60 [facility] Comment on above: Order Comment: [facility] has implemented the eGFR calculation approach that does not have a coefficient for race that conforms to the NKF-ASN Task Force Recommendations. Result Comment: Joi mated GFR was calculated using the 2020 CKD-EPI creatinine equation. Performed By: #### 4 6449 ####[facility] [address] [place] [address] Glenn Gudino M.D. [id number] Result Comment: Joi mated GFR was calculated using the 2020 CKD-EPI creatinine equation.Estimated GFR was calculated using the 2020 CKD-EPI creatinine equation. Performed By: #### 4 6126 ####[facility] [address] [place] [address] Glenn Gudino M.D. [id number] Glucose [Mass/Vol] 151 mg/dL High 65-99 [facility] Comment on above: Order Comment: [facility] has implemented the eGFR calculation approach that does not have a coefficient for race that conforms to the NKF-ASN Task Force Recommendations. Performed By: #### 4 6449 ####[facility] [address] [place], [place] [address] Glenn Gudino M.D. [id number] Performed By: #### 4 6126 ####[facility] [address] [place] [address] Glenn Gudino M.D. [id number] HCO3 (Bld) [Moles/Vol] 26 mmol/L Normal 21-32 [facility] Comment on above: Order Comment: [facility] has implemented the eGFR calculation approach that does not have a coefficient for race that conforms to the NKF-ASN Task Force Recommendations. Performed By: #### 4 6449 ####[facility] [address] [place] [address] Glenn Gudino M.D. [id number] Performed By: #### 4 6126 ####[facility] [address] [place], [place] [address] Glenn Gudino M.D. [id number] Phosphate [Mass/Vol] 3.4 mg/dL Normal 2.8-4.1 [facility] Comment on above: Order Comment: [facility] has implemented the eGFR calculation approach that does not have a coefficient for race that conforms to the NKF-ASN Task Force Recommendations. Performed By: #### 4 6449 ####[facility] [address] [place], [place] [address] Glenn Gudino M.D. [id number] Potassium [Moles/Vol] 4.1 mmol/L Normal 3.5-5.1 [facility] Comment on above: Order Comment: [facility] has implemented the eGFR calculation approach that does not have a coefficient for race that conforms to the NKF-ASN Task Force Recommendations. Performed By: #### 4 6449 ####[facility] [address] [place] [address] Glenn Gudino M.D. [id number] Performed By: #### 4 6126 ####[facility] [address] [place] [address] Glenn Gudino M.D. [id number] Sodium [Moles/Vol] 132 mmol/L Low 135-145 [facility] Comment on above: Order Comment: [facility] has implemented the eGFR calculation approach that does not have a coefficient for race that conforms to the NKF-ASN Task Force Recommendations. Performed By: #### 4 6449 ####[facility] [address] [place] [address] Glenn Gudino M.D. [id number] Performed By: #### 4 6126 ####[facility] [address] [place], [place] [address] Glenn Gudino M.D. [id number] Urea nitrogen [Mass/Vol] 22 mg/dL Normal 8-25 [facility] Comment on above: Order Comment: [facility] has implemented the eGFR calculation approach that does not have a coefficient for race that conforms to the NKF-ASN Task Force Recommendations. Performed By: #### 4 6449 ####[facility] [address] [place], [place] [address] Glenn Gudino M.D. [id number] Performed By: #### 4 6126 ####[facility] [address] [place] [address] 01345 Glenn Gudino M.D. [id number] Urea nitrogen/Creatinine [Mass ratio] 10.3 mg/mg Normal 10.0-20.0 [facility] Comment on above: Order Comment: [facility] has implemented the eGFR calculation approach that does not have a coefficient for race that conforms to the NKF-ASN Task Force Recommendations. Performed By: #### 4 6449 ####[facility] [address] [place], [place] [address] Glenn Gudino M.D. [id number] Performed By: #### 4 6126 ####[facility] [address] [place] [address] 55799 Glenn Gudino M.D. [id number] TRIGLYCERIDESon 02-04-2024 Triglyceride [Mass/Vol] 339 mg/dL High 30-150 [facility] Comment on above: Result Comment: [facility]ila onal Cholesterol Education Program Guidelines: TriglycerideNormal: <150 mg/dLBorderline High: 150-199 mg/dLHigh: 200-499 mg/dLVery High: greater than or equal to 500 mg/dL Performed By: #### 4 6606 ####[facility] [address] [place] [address] 27442 Gelnn Gudino M.D. [id number] XR CHEST PA/APon 02-04-2024 XR CHEST PA/AP [facility] Comment on above: Order Comment: Injur y/Trauma or Illness?:Illness/OtherHow long have you had these symptoms (acute/chronic)?:AcuteReason for exam?:chest tube palcement, pneumothoraxHistory of cancer?:uSurgeries, chemotherapy, or radiation?:uType of Exam?:OngoingAdditional signs and symptoms?:chest tube palcement, pneumothorax ANTIBODY IDENTIFICATION-Con 02-03-2024 ANTIBODY IDENTIFICATION-C [facility] Comment on above: Performed By: #### 4 6427_Anti-C ####PENDING SALE TO [facility] [address] [place] [address] Nurys Oneill MD [id number] [facility] CALCIUM, IONIZEDon CALCIUM IONIZED 4.5 mg/dL Normal 4.5-5.3 [facility] Comment on above: Order Comment: Serum , non-CRRT source. Performed By: #### 4 5190 ####[facility] [address] [place] [address] Glenn Gudino M.D. [id number] CBCon 02-03-2024 AUTO NRBC 0.0 % Normal [facility] Comment on above: Performed By: #### 4 5218 ####[facility] [address] [place] [address] Glenn Gudino M.D. [id number] AUTO NRBC ABS COUNT 0.00 K/mcL Normal 0.00-0.00 [facility] Comment on above: Performed By: #### 4 5218 ####[facility] [address] [place], [place] [address] Glenn Gudino M.D. [id number] Erythrocyte distribution width (RBC) [Ratio] 17.8 % High 11.6-14.8 [facility] Comment on above: Performed By: #### 4 5218 ####[facility] [address] [place], [place] [address] Glenn Gudino M.D. [id number] Hematocrit (Bld) [Volume fraction] 29.4 % Low 36.0-46.0 [facility] Comment on above: Performed By: #### 4 5218 ####[facility] [address] [place], [place] [address] Glenn Gudino M.D. [id number] Hemoglobin (Bld) [Mass/Vol] 9.6 g/dL Low 12.0-16.0 [facility] Comment on above: Performed By: #### 4 5218 ####[facility] [address] [place] [address] 70689 Glnen Gudino M.D. [id number] MCH (RBC) [Entitic mass] 29.0 pg Normal 26.0-34.0 [facility] Comment on above: Performed By: #### 4 5218 ####[facility] [address] [place] [address] Glenn Gudino M.D. [id number] MCV (RBC) [Entitic vol] 88.8 fL Normal 80.0-100.0 [facility] Comment on above: Performed By: #### 4 5218 ####[facility] [address] [place], [place] [address] Glenn Gudino M.D. [id number] MEAN CORPUSCULAR HEMOGLOBIN CONC 32.7 g/dL Normal 31.0-37.0 [facility] Comment on above: Performed By: #### 4 5218 ####[facility] [address] [place], [place] [address] Glenn Gudino M.D. [id number] Platelet mean volume (Bld) [Entitic vol] 9.6 fL Normal 9.4-12.4 [facility] Comment on above: Performed By: #### 4 5218 ####[facility] [address] [place], [place] [address] Glenn Gudino M.D. [id number] Platelets (Bld) [#/Vol] 150 10*3/uL Normal 150-400 [facility] Comment on above: Performed By: #### 4 5218 ####[facility] [address] [place], [place] [address] Glenn Gudino M.D. [id number] RBC (Bld) [#/Vol] 3.31 10*6/uL Low 4.00-5.20 [facility] Comment on above: Performed By: #### 4 5218 ####[facility] [address] [place] [address] 63438 Glenn Gudino M.D. [id number] WBC (Bld) [#/Vol] 13.45 10*3/uL High 4.50-11.00 [facility] Comment on above: Performed By: #### 4 5218 ####[facility] [address] [place] [address] Glenn Gudino M.D. [id number] CONSULTon 02-03-2024 CONSULT VIR consulted for no n tunneled CVC for short term TPN. Spoke to vascular surgery team. They'll plan to place an IJV line. AUTHENTICATED BY ROBERT DEL VALLE ON 02/03/2024 11:17:22 Normal [facility] MAGNESIUM LEVELon 02-03-2024 Magnesium [Mass/Vol] 2.1 mg/dL Normal 1.6-2.4 [facility] Comment on above: Performed By: #### 4 6109 ####[facility] [address] [place] [address] Glenn Gudino M.D. [id number] POC GLUCOSE [facility] 024 Glucose [Mass/Vol] 95 mg/dL Normal 65-99 [facility] Comment on above: Performed By: #### 4 6954 ####[facility] [address] [place] [address] [id number] [facility] Glucose [Mass/Vol] 102 mg/dL High 65-99 [facility] Comment on above: Performed By: #### 4 6954 ####[facility] [address] [place] [address] [id number] [facility] Glucose [Mass/Vol] 113 mg/dL High 65-99 [facility] Comment on above: Performed By: #### 4 6916 ####[facility] [address] [place] [address] [id number] [facility] Glucose [Mass/Vol] 132 mg/dL High 65-99 [facility] Comment on above: Performed By: #### 4 6932 ####[facility] [address] [place] [address] [id number] [facility] Glucose [Mass/Vol] 145 mg/dL High 65-99 [facility] Comment on above: Performed By: #### 4 6932 ####[facility] [address] [place] [address] [id number] [facility] Glucose [Mass/Vol] 131 mg/dL High 65-99 [facility] Comment on above: Performed By: #### 4 6932 ####[facility] [address] [place] [address] [id number] [facility] RENAL FUNCTION PANELon 02-02 Albumin [Mass/Vol] 2.4 g/dL Low 3.2-5.2 [facility] Comment on above: Order Comment: [facility] has implemented the eGFR calculation approach that does not have a coefficient for race that conforms to the NKF-ASN Task Force Recommendations. Performed By: #### 4 6449 ####[facility] [address] [place], [place] [address] Glenn Gudino M.D. [id number] Anion gap [Moles/Vol] 16 mmol/L Normal 10-20 [facility] Comment on above: Order Comment: [facility] has implemented the eGFR calculation approach that does not have a coefficient for race that conforms to the NKF-ASN Task Force Recommendations. Performed By: #### 4 6449 ####[facility] [address] [place] [address] 20806 Glenn Gudino M.D. [id number] Calcium [Mass/Vol] 7.9 mg/dL Low 8.4-10.2 [facility] Comment on above: Order Comment: [facility] has implemented the eGFR calculation approach that does not have a coefficient for race that conforms to the NKF-ASN Task Force Recommendations. Performed By: #### 4 6449 ####[facility] [address] [place] [address] 19095 Glenn Gudino M.D. [id number] Chloride [Moles/Vol] 97 mmol/L Low 98-108 [facility] Comment on above: Order Comment: [facility] has implemented the eGFR calculation approach that does not have a coefficient for race that conforms to the NKF-ASN Task Force Recommendations. Performed By: #### 4 6449 ####[facility] [address] [place] [address]307 Glenn Gudino M.D. [id number] Creatinine [Mass/Vol] 2.53 mg/dL High 0.60-1.10 [facility] Comment on above: Order Comment: [facility] has implemented the eGFR calculation approach that does not have a coefficient for race that conforms to the NKF-ASN Task Force Recommendations. Performed By: #### 4 6449 ####[facility] [address] [place] [address] 20040 Glenn Gudino M.D. [id number] EGFR 21 mL/min/1.73 m2 Low >=60 [facility] Comment on above: Order Comment: [facility] has implemented the eGFR calculation approach that does not have a coefficient for race that conforms to the NKF-ASN Task Force Recommendations. Result Comment: Joi mated GFR was calculated using the 2020 CKD-EPI creatinine equation. Performed By: #### 4 6449 ####[facility] [address] [place] [address] 09795 Glenn Gudino M.D. [id number] Glucose [Mass/Vol] 154 mg/dL High 65-99 [facility] Comment on above: Order Comment: [facility] has implemented the eGFR calculation approach that does not have a coefficient for race that conforms to the NKF-ASN Task Force Recommendations. Performed By: #### 4 6449 ####[facility] [address] [place] [address] 89097 Glenn Gudino M.D. [id number] HCO3 (Bld) [Moles/Vol] 25 mmol/L Normal 21-32 [facility] Comment on above: Order Comment: [facility] has implemented the eGFR calculation approach that does not have a coefficient for race that conforms to the NKF-ASN Task Force Recommendations. Performed By: #### 4 6449 ####[facility] [address] [place] [address] Glenn Gudino M.D. [id number] Phosphate [Mass/Vol] 3.6 mg/dL Normal 2.8-4.1 [facility] Comment on above: Order Comment: [facility] has implemented the eGFR calculation approach that does not have a coefficient for race that conforms to the NKF-ASN Task Force Recommendations. Performed By: #### 4 6449 ####[facility] [address] [place] [address] Glenn Gudino M.D. [id number] Potassium [Moles/Vol] 5.8 mmol/L High 3.5-5.1 [facility] Comment on above: Order Comment: [facility] has implemented the eGFR calculation approach that does not have a coefficient for race that conforms to the NKF-ASN Task Force Recommendations. Performed By: #### 4 6449 ####[facility] [address] [place], [place] [address] Glenn Gudino M.D. [id number] Sodium [Moles/Vol] 132 mmol/L Low 135-145 [facility] Comment on above: Order Comment: [facility] has implemented the eGFR calculation approach that does not have a coefficient for race that conforms to the NKF-ASN Task Force Recommendations. Performed By: #### 4 6449 ####[facility] [address] [place], [place] [address] Glenn Gudino M.D. [id number] Urea nitrogen [Mass/Vol] 30 mg/dL High 8-25 [facility] Comment on above: Order Comment: [facility] has implemented the eGFR calculation approach that does not have a coefficient for race that conforms to the NKF-ASN Task Force Recommendations. Performed By: #### 4 6449 ####[facility] [address] [place] [address] Glenn Gudino M.D. [id number] Urea nitrogen/Creatinine [Mass ratio] 11.9 mg/mg Normal 10.0-20.0 [facility] Comment on above: Order Comment: [facility] has implemented the eGFR calculation approach that does not have a coefficient for race that conforms to the NKF-ASN Task Force Recommendations. Performed By: #### 4 6449 ####[facility] [address] [place] [address] Glenn Gudino M.D. [id number] TYPE AND SCREENon 02-03-2024 TYPE AND SCREEN Normal [facility] Comment on above: Performed By: #### 4 6619 ####PENDING SALE TO [facility] [address] [place] [address] Nurys Oneill MD [id number] [facility] XR CHEST PA/APon 02-03-2024 XR CHEST PA/AP Normal [facility] Comment on above: Order Comment: [...] 4 CALCIUM IONIZED 4.4 mg/dL Low 4.5-5.3 [facility] Comment on above: Performed By: #### 4 5190 ####[facility] [address] [place], [place] [address] Glenn Gudino M.D. [id number] CBCon 02-02-2024 AUTO NRBC 0.0 % Normal [facility] Comment on above: Performed By: #### 4 [id number] ####[facility] [address] [place] [address] Glenn Gudino M.D. [id number] AUTO NRBC ABS COUNT 0.00 K/mcL Normal 0.00-0.00 [facility] Comment on above: Performed By: #### 4 [id number] ####[facility] [address] [place] [address] Glenn Gudino M.D. [id number] Erythrocyte distribution width (RBC) [Ratio] 18.9 % High 11.6-14.8 [facility] Comment on above: Performed By: #### 4 [id number] ####[facility] [address] [place], [place] [address] Glenn Gudino M.D. [id number] Hematocrit (Bld) [Volume fraction] 25.0 % Low 36.0-46.0 [facility] Comment on above: Performed By: #### 4 [id number] ####[facility] [address] [place], [place] [address] Glenn Gudino M.D. [id number] Hemoglobin (Bld) [Mass/Vol] 7.9 g/dL Low 12.0-16.0 [facility] Comment on above: Performed By: #### 4 [id number] ####[facility] [address] [place], [place] [address] Glenn Gudino M.D. [id number] MCH (RBC) [Entitic mass] 28.6 pg Normal 26.0-34.0 [facility] Comment on above: Performed By: #### 4 [id number] ####[facility] [address] [place] [address] Glenn Gudino M.D. [id number] MCV (RBC) [Entitic vol] 90.6 fL Normal 80.0-100.0 [facility] Comment on above: Performed By: #### 4 5218 ####[facility] [address] [place] [address] Glenn Gudino M.D. [id number] MEAN CORPUSCULAR HEMOGLOBIN CONC 31.6 g/dL Normal 31.0-37.0 [facility] Comment on above: Performed By: #### 4 [id number] ####[facility] [address] [place] [address] Glenn Gudino M.D. [id number] Platelet mean volume (Bld) [Entitic vol] 10.2 fL Normal 9.4-12.4 [facility] Comment on above: Performed By: #### 4 [id number] ####[facility] [address] [place], [place] [address] Glenn Gudino M.D. [id number] Platelets (Bld) [#/Vol] 171 10*3/uL Normal 150-400 [facility] Comment on above: Performed By: #### 4 [id number] ####[facility] [address] [place], [place] [address] Glenn Gudino M.D. [id number] RBC (Bld) [#/Vol] 2.76 10*6/uL Low 4.00-5.20 [facility] Comment on above: Performed By: #### 4 5218 ####[facility] [address] [place] [address] Glenn Gudino M.D. [id number] WBC (Bld) [#/Vol] 12.32 10*3/uL High 4.50-11.00 [facility] Comment on above: Performed By: #### 4 5218 ####[facility] [address] [place], [place] [address] Glenn Gudino M.D. [id number] AUTO NRBC 0.0 % Normal [facility] Comment on above: Performed By: #### 4 5218 ####[facility] [address] [place] [address] Glenn Gudino M.D. [id number] AUTO NRBC ABS COUNT 0.00 K/mcL Normal 0.00-0.00 [facility] Comment on above: Performed By: #### 4 5218 ####[facility] [address] [place], [place] [address] Glenn Gudino M.D. [id number] Erythrocyte distribution width (RBC) [Ratio] 19.0 % High 11.6-14.8 [facility] Comment on above: Performed By: #### 4 5218 ####[facility] [address] [place], [place] [address] Glenn Gudino M.D. [id number] Hematocrit (Bld) [Volume fraction] 23.5 % Low 36.0-46.0 [facility] Comment on above: Performed By: #### 4 5218 ####[facility] [address] [place], [place] [address] Glenn Gudino M.D. [id number] Hemoglobin (Bld) [Mass/Vol] 7.4 g/dL Low 12.0-16.0 [facility] Comment on above: Result Comment: Zuleima pheral smear reviewed manually Performed By: #### 4 7018 ####[facility] [address] [place], [place] [address] Glenn Gudino M.D. [id number] MCH (RBC) [Entitic mass] 27.9 pg Normal 26.0-34.0 [facility] Comment on above: Performed By: #### 4 5218 ####[facility] [address] [place] [address] Glenn Gudino M.D. [id number] MCV (RBC) [Entitic vol] 88.7 fL Normal 80.0-100.0 [facility] Comment on above: Performed By: #### 4 5218 ####[facility] [address] [place] [address] Glenn Gudino M.D. [id number] MEAN CORPUSCULAR HEMOGLOBIN CONC 31.5 g/dL Normal 31.0-37.0 [facility] Comment on above: Performed By: #### 4 5218 ####[facility] [address] [place], [place] [address] Glenn Gudino M.D. [id number] Platelet mean volume (Bld) [Entitic vol] 10.5 fL Normal 9.4-12.4 [facility] Comment on above: Performed By: #### 4 5218 ####[facility] [address] [place], [place] [address] Glenn Gudino M.D. [id number] Platelets (Bld) [#/Vol] 138 10*3/uL Low 150-400 [facility] Comment on above: Performed By: #### 4 5218 ####[facility] [address] [place], [place] [address] Glenn Gudino M.D. [id number] RBC (Bld) [#/Vol] 2.65 10*6/uL Low 4.00-5.20 [facility] Comment on above: Performed By: #### 4 5218 ####[facility] [address] [place], [place] [address] Glenn Gudino M.D. [id number] WBC (Bld) [#/Vol] 9.43 10*3/uL Normal 4.50-11.00 [facility] Comment on above: Performed By: #### 4 5218 ####[facility] [address] [id number] Glenn Gudino M.D. [id number] CONSULTon 02-02-2024 CONSULT Normal [facility] CONSULT Normal [facility] CONSULT Normal [facility] CONSULT Normal [facility] CT ANGIOGRAM ABDOMEN PELVISo n 02-02-2024 CT ANGIOGRAM ABDOMEN PELVIS Normal [facility] Comment on above: Order Comment: Injur y/Trauma or Illness?:Illness/OtherHow long have you had these symptoms (acute/chronic)?:AcuteReason for exam?:hemoperitoneum on non con scan, recent RP open AAA repair/EVAR explantType of Exam?:InitialAdditional signs and symptoms?:na CT CHEST ABDOMEN PELVIS WITH OUT CONTRASTon 02-02-2024 CT CHEST ABDOMEN PELVIS WITHOUT CONTRAST Normal [facility] Comment on above: Order Comment: [...] 02-02-2024 Magnesium [Mass/Vol] 2.1 mg/dL Normal 1.6-2.4 [facility] Comment on above: Performed By: #### 4 6109 ####[facility] [address] [place], [place] [address] Glenn Gudino M.D. [id number] [facility] Glucose [Mass/Vol] 114 mg/dL High 65-99 [facility] Comment on above: Performed By: #### 4 6932 ####[facility] [address] [place] [address] [id number] [facility] Glucose [Mass/Vol] 110 mg/dL High [address] [place] [address] Comment on above: Performed By: #### 4 6932 ####[facility] [address] [place] [address] [id number] [facility] Glucose [Mass/Vol] 113 mg/dL High [address] [place] [address] Comment on above: Performed By: #### 4 6932 ####[facility] [address] [place] [address] [id number] [facility] Glucose [Mass/Vol] 128 mg/dL High [address] [place] [address] Comment on above: Performed By: #### 4 6932 ####[facility] [address] [place] [address] [id number] [facility] Glucose [Mass/Vol] 173 mg/dL High [address] [place] [address] Comment on above: Performed By: #### 4 6932 ####[facility] [address] [place] [address] [id number] [facility] Glucose [Mass/Vol] 82 mg/dL Normal [address] [place] [address] Comment on above: Performed By: #### 4 6932 ####[facility] [address] [place] [address] [id number] [facility] RENAL FUNCTION PANELon 02-01 Albumin [Mass/Vol] 2.3 g/dL Low 3.2-5.2 [facility] Comment on above: Order Comment: [facility] has implemented the eGFR calculation approach that does not have a coefficient for race that conforms to the NKF-ASN Task Force Recommendations. Performed By: #### 4 6449 ####[facility] [address] [place] [address] Glenn Gudino M.D. [id number] Anion gap [Moles/Vol] 14 mmol/L Normal 10-20 [facility] Comment on above: Order Comment: [facility] has implemented the eGFR calculation approach that does not have a coefficient for race that conforms to the NKF-ASN Task Force Recommendations. Performed By: #### 4 6449 ####[facility] [address] [place], [place] [address] Glenn Gudino M.D. [id number] Calcium [Mass/Vol] 7.5 mg/dL Low 8.4-10.2 [facility] Comment on above: Order Comment: [facility] has implemented the eGFR calculation approach that does not have a coefficient for race that conforms to the NKF-ASN Task Force Recommendations. Performed By: #### 4 6449 ####[facility] [address] [place], [place] [address] Glenn Gudino M.D. [id number] Chloride [Moles/Vol] 95 mmol/L Low 98-108 [facility] Comment on above: Order Comment: [facility] has implemented the eGFR calculation approach that does not have a coefficient for race that conforms to the NKF-ASN Task Force Recommendations. Performed By: #### 4 6449 ####[facility] [address] [place], [place] [address] Glenn Gudino M.D. [id number] Creatinine [Mass/Vol] 1.98 mg/dL High 0.60-1.10 [facility] Comment on above: Order Comment: [facility] has implemented the eGFR calculation approach that does not have a coefficient for race that conforms to the NKF-ASN Task Force Recommendations. Performed By: #### 4 6449 ####[facility] [address] [place], [place] [address] Glenn Gudino M.D. [id number] EGFR 28 mL/min/1.73 m2 Low >=60 [facility] Comment on above: Order Comment: [facility] has implemented the eGFR calculation approach that does not have a coefficient for race that conforms to the NKF-ASN Task Force Recommendations. Result Comment: Joi mated GFR was calculated using the 2020 CKD-EPI creatinine equation. Performed By: #### 4 6449 ####[facility] [address] [place] [address] Glenn Gudino M.D. [id number] Glucose [Mass/Vol] 157 mg/dL High 65-99 [facility] Comment on above: Order Comment: [facility] has implemented the eGFR calculation approach that does not have a coefficient for race that conforms to the NKF-ASN Task Force Recommendations. Performed By: #### 4 6449 ####[facility] [address] [place] [address] Glenn Gudino M.D. [id number] HCO3 (Bld) [Moles/Vol] 26 mmol/L Normal 21-32 [facility] Comment on above: Order Comment: [facility] has implemented the eGFR calculation approach that does not have a coefficient for race that conforms to the NKF-ASN Task Force Recommendations. Performed By: #### 4 6449 ####[facility] [address] [place] [address] Glenn Gudino M.D. [id number] Phosphate [Mass/Vol] 2.3 mg/dL Low 2.8-4.1 [facility] Comment on above: Order Comment: [facility] has implemented the eGFR calculation approach that does not have a coefficient for race that conforms to the NKF-ASN Task Force Recommendations. Performed By: #### 4 6449 ####[facility] [address] [place] [address] Glenn Gudino M.D. [id number] Potassium [Moles/Vol] 4.7 mmol/L Normal 3.5-5.1 [facility] Comment on above: Order Comment: [facility] has implemented the eGFR calculation approach that does not have a coefficient for race that conforms to the NKF-ASN Task Force Recommendations. Performed By: #### 4 6449 ####[facility] [address] [place] [address] Glenn Gudino M.D. [id number] Sodium [Moles/Vol] 130 mmol/L Low 135-145 [facility] Comment on above: Order Comment: [facility] has implemented the eGFR calculation approach that does not have a coefficient for race that conforms to the NKF-ASN Task Force Recommendations. Performed By: #### 4 6449 ####[facility] [address] [place] [address] Glenn Gudino M.D. [id number] Urea nitrogen [Mass/Vol] 23 mg/dL Normal 8-25 [facility] Comment on above: Order Comment: [facility] has implemented the eGFR calculation approach that does not have a coefficient for race that conforms to the NKF-ASN Task Force Recommendations. Performed By: #### 4 6449 ####[facility] [address] [place] [address] Glenn Gudino M.D. [id number] Urea nitrogen/Creatinine [Mass ratio] 11.6 mg/mg Normal 10.0-20.0 [facility] Comment on above: Order Comment: [facility] has implemented the eGFR calculation approach that does not have a coefficient for race that conforms to the NKF-ASN Task Force Recommendations. Performed By: #### 4 6449 ####[facility] [address] [place], [place] [address] Glenn Gudino M.D. [id number] XR CHEST PA/APon 02-02-2024 XR CHEST PA/AP Normal [facility] Comment on above: Order Comment: Injur y/Trauma or Illness?:Illness/OtherHow long have you had these symptoms (acute/chronic)?:AcuteReason for exam?:chest tube palcementHistory of cancer?:uSurgeries, chemotherapy, or radiation?:uType of Exam?:UnknownAdditional signs and symptoms?:pneumothorax CALCIUM, IONIZEDon CALCIUM IONIZED 4.4 mg/dL Low 4.5-5.3 [facility] Comment on above: Order Comment: Serum , non-CRRT source. Performed By: #### 4 5190 ####[facility] [address] [place] [address] Glenn Gudino M.D. [id number] CBCon 02-01-2024 AUTO NRBC 0.0 % Normal [facility] Comment on above: Performed By: #### 4 5218 ####[facility] [address] [place] [address] Glenn Gudino M.D. [id number] AUTO NRBC ABS COUNT 0.00 K/mcL Normal 0.00-0.00 [facility] Comment on above: Performed By: #### 4 5218 ####[facility] [address] [place] [address] Glenn Gudino M.D. [id number] Erythrocyte distribution width (RBC) [Ratio] 19.1 % High 11.6-14.8 [facility] Comment on above: Performed By: #### 4 5218 ####[facility] [address] [place] [address] Glenn Gudino M.D. [id number] Hematocrit (Bld) [Volume fraction] 25.8 % Low 36.0-46.0 [facility] Comment on above: Performed By: #### 4 5218 ####[facility] [address] [place], [place] [address] Glenn Gudino M.D. [id number] Hemoglobin (Bld) [Mass/Vol] 8.4 g/dL Low 12.0-16.0 [facility] Comment on above: Performed By: #### 4 5218 ####[facility] [address] [place], [place] [address] Glenn Gudino M.D. [id number] MCH (RBC) [Entitic mass] 28.7 pg Normal 26.0-34.0 [facility] Comment on above: Performed By: #### 4 5218 ####[facility] [address] [place], [place] [address] Glenn Gudino M.D. [id number] MCV (RBC) [Entitic vol] 88.1 fL Normal 80.0-100.0 [facility] Comment on above: Performed By: #### 4 5218 ####[facility] [address] [place] [address] Glenn Gudino M.D. [id number] MEAN CORPUSCULAR HEMOGLOBIN CONC 32.6 g/dL Normal 31.0-37.0 [facility] Comment on above: Performed By: #### 4 5218 ####[facility] [address] [place] [address] Glenn Gudino M.D. [id number] Platelet mean volume (Bld) [Entitic vol] 10.2 fL Normal 9.4-12.4 [facility] Comment on above: Performed By: #### 4 [id number] ####[facility] [address] [place] [address] Glenn Gudino M.D. [id number] Platelets (Bld) [#/Vol] 109 10*3/uL Low 150-400 [facility] Comment on above: Performed By: #### 4 [id number] ####[facility] [address] [place], [place] [address] Glenn Gudino M.D. [id number] RBC (Bld) [#/Vol] 2.93 10*6/uL Low 4.00-5.20 [facility] Comment on above: Performed By: #### 4 5218 ####[facility] [address] [place], [place] [address] Glenn Gudino M.D. [id number] WBC (Bld) [#/Vol] 10.44 10*3/uL Normal 4.50-11.00 [facility] Comment on above: Performed By: #### 4 5218 ####[facility] [address] [place] [address] Glenn Gudino M.D. [id number] H AND Ney 02-01-2024 H AND P Normal [facility] MAGNESIUM LEVELon 02-01-2024 Magnesium [Mass/Vol] 2.3 mg/dL Normal 1.6-2.4 [facility] Comment on above: Performed By: #### 4 6109 ####[facility] [address] [place] [address] Glenn Gudino M.D. [id number] POC GLUCOSE - [facility] 024 Glucose [Mass/Vol] 151 mg/dL High 65-99 [facility] Comment on above: Performed By: #### 4 6932 ####[facility] [address] [place] [address] [id number] [facility] Glucose [Mass/Vol] 92 mg/dL Normal 65-99 [facility] Comment on above: Performed By: #### 4 6932 ####[facility] [address] [place] [address] [id number] [facility] Glucose [Mass/Vol] 58 mg/dL Low 65-99 [facility] Comment on above: Performed By: #### 4 6645 ####[facility] [address] [place] [address] [id number] [facility] Glucose [Mass/Vol] 97 mg/dL Normal 65-99 [facility] Comment on above: Performed By: #### 4 9019 ####[facility] [address] [place] [address] [id number] [facility] Glucose [Mass/Vol] 62 mg/dL Low 65-99 [facility] Comment on above: Performed By: #### 4 1614 ####[facility] [address] [place] [address] [id number] [facility] Glucose [Mass/Vol] 110 mg/dL High [address] [place] [address] Comment on above: Performed By: #### 4 6932 ####[facility] [address] [place] [address] [id number] [facility] Glucose [Mass/Vol] 117 mg/dL High [address] [place] [address] Comment on above: Performed By: #### 4 6932 ####[facility] [address] [place] [address] [id number] [facility] Glucose [Mass/Vol] 166 mg/dL High [address] [place] [address] Comment on above: Performed By: #### 4 6932 ####[facility] [address] [place] [address] [id number] [facility] Glucose [Mass/Vol] 150 mg/dL [address] Comment on above: Performed By: #### 4 6932 ####[facility] [address] [place] [address] [id number] [facility] RENAL FUNCTION PANELon 01-31 Albumin [Mass/Vol] 1.8 g/dL Low 3.2-5.2 [facility] Comment on above: Order Comment: [facility] has implemented the eGFR calculation approach that does not have a coefficient for race that conforms to the NKF-ASN Task Force Recommendations. Performed By: #### 4 6449 ####[facility] [address] [place] [address] Glenn Gudino M.D. [id number] Anion gap [Moles/Vol] 11 mmol/L Normal 10-20 [facility] Comment on above: Order Comment: [facility] has implemented the eGFR calculation approach that does not have a coefficient for race that conforms to the NKF-ASN Task Force Recommendations. Performed By: #### 4 6449 ####[facility] [address] [place] [address] Glenn Gudino M.D. [id number] Calcium [Mass/Vol] 7.3 mg/dL Low 8.4-10.2 [facility] Comment on above: Order Comment: [facility] has implemented the eGFR calculation approach that does not have a coefficient for race that conforms to the NKF-ASN Task Force Recommendations. Performed By: #### 4 6449 ####[facility] [address] [place], [place] [address] Glenn Gudino M.D. [id number] Chloride [Moles/Vol] 100 mmol/L Normal 98-108 [facility] Comment on above: Order Comment: [facility] has implemented the eGFR calculation approach that does not have a coefficient for race that conforms to the NKF-ASN Task Force Recommendations. Performed By: #### 4 6449 ####[facility] [address] [place], [place] [address] Glenn Gudino M.D. [id number] Creatinine [Mass/Vol] 2.21 mg/dL High 0.60-1.10 [facility] Comment on above: Order Comment: [facility] has implemented the eGFR calculation approach that does not have a coefficient for race that conforms to the NKF-ASN Task Force Recommendations. Performed By: #### 4 6449 ####[facility] [address] [place], [place] [address] Glenn Gudino M.D. [id number] EGFR 25 mL/min/1.73 m2 Low >=60 [facility] Comment on above: Order Comment: [facility] has implemented the eGFR calculation approach that does not have a coefficient for race that conforms to the NKF-ASN Task Force Recommendations. Result Comment: Joi mated GFR was calculated using the 2020 CKD-EPI creatinine equation. Performed By: #### 4 6449 ####[facility] [address] [place] [address] Glenn Gudino M.D. [id number] Glucose [Mass/Vol] 185 mg/dL High 65-99 [facility] Comment on above: Order Comment: [facility] has implemented the eGFR calculation approach that does not have a coefficient for race that conforms to the NKF-ASN Task Force Recommendations. Performed By: #### 4 6449 ####[facility] [address] [place], [place] [address] Glenn Gudino M.D. [id number] HCO3 (Bld) [Moles/Vol] 27 mmol/L Normal 21-32 [facility] Comment on above: Order Comment: [facility] has implemented the eGFR calculation approach that does not have a coefficient for race that conforms to the NKF-ASN Task Force Recommendations. Performed By: #### 4 6449 ####[facility] [address] [place], [place] [address] Glenn Gudino M.D. [id number] Phosphate [Mass/Vol] 2.7 mg/dL Low 2.8-4.1 [facility] Comment on above: Order Comment: [facility] has implemented the eGFR calculation approach that does not have a coefficient for race that conforms to the NKF-ASN Task Force Recommendations. Performed By: #### 4 6449 ####[facility] [address] [place], [place] [address] Glenn Gudino M.D. [id number] Potassium [Moles/Vol] 5.3 mmol/L High 3.5-5.1 [facility] Comment on above: Order Comment: [facility] has implemented the eGFR calculation approach that does not have a coefficient for race that conforms to the NKF-ASN Task Force Recommendations. Result Comment: Slig htly Hemolyzed Performed By: #### 4 6449 ####[facility] [address] [place], [place] [address] Glenn Gudino M.D. [id number] Sodium [Moles/Vol] 133 mmol/L Low 135-145 [facility] Comment on above: Order Comment: [facility] has implemented the eGFR calculation approach that does not have a coefficient for race that conforms to the NKF-ASN Task Force Recommendations. Performed By: #### 4 6449 ####[facility] [address] [place], [place] [id number] Glenn Gudino M.D. [id number] Urea nitrogen [Mass/Vol] 33 mg/dL High 8-25 [facility] Comment on above: Order Comment: [facility] has implemented the eGFR calculation approach that does not have a coefficient for race that conforms to the NKF-ASN Task Force Recommendations. Performed By: #### 4 6449 ####[facility] [address] [place], [place] [address] Glenn Gudino M.D. [id number] Urea nitrogen/Creatinine [Mass ratio] 14.9 mg/mg Normal 10.0-20.0 [facility] Comment on above: Order Comment: [facility] has implemented the eGFR calculation approach that does not have a coefficient for race that conforms to the NKF-ASN Task Force Recommendations. Performed By: #### 4 6449 ####[facility] [address] [place], [place] [address] Glenn Gudino M.D. [id number] XR CHEST PA/APon 02-01-2024 XR CHEST PA/AP Normal [facility] Comment on above: Order Comment: [...] ANTIBODY IDENTIFICATION-INCo n 01-31-2024 ANTIBODY IDENTIFICATION-INC Normal [facility] Comment on above: Performed By: #### 4 6427_Inconclusive ####PENDING SALE TO [facility] [address] [place] [address] Nurys Oneill MD [id number] RMHTS APTT HEPARIN COVERAGEon aPTT Coag (Bld) [Time] 40 s High 23-34 [facility] Comment on above: Order Comment: Thera peutic range for APTT's is 68 - 104 seconds Result Comment: Resu lts checked. Performed By: #### 4 6848 ####[facility] [address] [place] [address] Glenn Gudino M.D. [id number] aPTT Coag (Bld) [Time] 65 s High 23-34 [facility] Comment on above: Order Comment: Thera peutic range for APTT's is 68 - 104 secondsResults checked. Performed By: #### 4 6848 ####[facility] [address] [place] [address] Glenn Gudino M.D. [id number] BASIC METABOLIC PANELon Anion gap [Moles/Vol] 12 mmol/L Normal 10-20 [facility] Comment on above: Order Comment: [facility] has implemented the eGFR calculation approach that does not have a coefficient for race that conforms to the NKF-ASN Task Force Recommendations. Performed By: #### 4 6124 ####[facility] [address] [place] [address] Glenn Gudino M.D. [id number] Calcium [Mass/Vol] 8.0 mg/dL Low 8.4-10.2 [facility] Comment on above: Order Comment: [facility] has implemented the eGFR calculation approach that does not have a coefficient for race that conforms to the NKF-ASN Task Force Recommendations. Performed By: #### 4 6124 ####[facility] [address] [place] [address] Glenn Gudino M.D. [id number] Chloride [Moles/Vol] 99 mmol/L Normal 98-108 [facility] Comment on above: Order Comment: [facility] has implemented the eGFR calculation approach that does not have a coefficient for race that conforms to the NKF-ASN Task Force Recommendations. Performed By: #### 4 6124 ####[facility] [address] [place] [address] Glenn Gudino M.D. [id number] Creatinine [Mass/Vol] 1.47 mg/dL High 0.60-1.10 [facility] Comment on above: Order Comment: [facility] has implemented the eGFR calculation approach that does not have a coefficient for race that conforms to the NKF-ASN Task Force Recommendations. Performed By: #### 4 6124 ####[facility] [address] [place], [place] [address] Glenn Gudino M.D. [id number] EGFR 40 mL/min/1.73 m2 Low >=60 [facility] Comment on above: Order Comment: [facility] has implemented the eGFR calculation approach that does not have a coefficient for race that conforms to the NKF-ASN Task Force Recommendations. Result Comment: Joi mated GFR was calculated using the 2020 CKD-EPI creatinine equation. Performed By: #### 4 6124 ####[facility] [address] [place] [address] Glenn Gudino M.D. [id number] Glucose [Mass/Vol] 165 mg/dL High 65-99 [facility] Comment on above: Order Comment: [facility] has implemented the eGFR calculation approach that does not have a coefficient for race that conforms to the NKF-ASN Task Force Recommendations. Performed By: #### 4 6124 ####[facility] [address] [place] [address] Glenn Gudino M.D. [id number] HCO3 (Bld) [Moles/Vol] 28 mmol/L Normal 21-32 [facility] Comment on above: Order Comment: [facility] has implemented the eGFR calculation approach that does not have a coefficient for race that conforms to the NKF-ASN Task Force Recommendations. Performed By: #### 4 6124 ####[facility] [address] [place], [place] [address] Glenn Gudino M.D. [id number] Potassium [Moles/Vol] 4.5 mmol/L Normal 3.5-5.1 [facility] Comment on above: Order Comment: [facility] has implemented the eGFR calculation approach that does not have a coefficient for race that conforms to the NKF-ASN Task Force Recommendations. Performed By: #### 4 6124 ####[facility] [address] [place], [place] [address] Glenn Gudino M.D. [id number] Sodium [Moles/Vol] 134 mmol/L Low 135-145 [facility] Comment on above: Order Comment: [facility] has implemented the eGFR calculation approach that does not have a coefficient for race that conforms to the NKF-ASN Task Force Recommendations. Performed By: #### 4 6124 ####[facility] [address] [place], [place] [address] Glenn Gudino M.D. [id number] Urea nitrogen [Mass/Vol] 23 mg/dL Normal 8-25 [facility] Comment on above: Order Comment: [facility] has implemented the eGFR calculation approach that does not have a coefficient for race that conforms to the NKF-ASN Task Force Recommendations. Performed By: #### 4 6196 ####[facility] [address] [place] [address] Glenn Gudino M.D. [id number] Urea nitrogen/Creatinine [Mass ratio] 15.6 mg/mg Normal 10.0-20.0 [facility] Comment on above: Order Comment: [facility] has implemented the eGFR calculation approach that does not have a coefficient for race that conforms to the NKF-ASN Task Force Recommendations. Performed By: #### 4 6124 ####[facility] [address] [place] [address] Glenn Gudino M.D. [id number] CALCIUM, IONIZEDon CALCIUM IONIZED 4.9 mg/dL Normal 4.5-5.3 [facility] Comment on above: Performed By: #### 4 5190 ####[facility] [address] [place] [address] Glenn Gudino M.D. [id number] CALCIUM IONIZED 4.5 mg/dL Normal 4.5-5.3 [facility] Comment on above: Order Comment: Serum , non-CRRT source. Performed By: #### 4 5190 ####[facility] [address] [place], [place] [address] Glenn Gudino M.D. [id number] CBCon 01-31-2024 AUTO NRBC 0.0 % Normal [facility] Comment on above: Performed By: #### 4 5218 ####[facility] [address] [place], [place] [address] Glenn Gudino M.D. [id number] AUTO NRBC ABS COUNT 0.00 K/mcL Normal 0.00-0.00 [facility] Comment on above: Performed By: #### 4 5218 ####[facility] [address] [place], [place] [address] Glenn Gudino M.D. [id number] Erythrocyte distribution width (RBC) [Ratio] 18.7 % High 11.6-14.8 [facility] Comment on above: Performed By: #### 4 5218 ####[facility] [address] [place], [place] [address] Glenn Gudino M.D. [id number] Hematocrit (Bld) [Volume fraction] 26.9 % Low 36.0-46.0 [facility] Comment on above: Result Comment: Resu lts checked Performed By: #### 4 5218 ####[facility] [address] [place], [place] [address] Glenn Gudino M.D. [id number] Hemoglobin (Bld) [Mass/Vol] 9.0 g/dL Low 12.0-16.0 [facility] Comment on above: Result Comment: Resu lts checked Performed By: #### 4 5218 ####[facility] [address] [place], [place] [address] Glenn Gudino M.D. [id number] MCH (RBC) [Entitic mass] 28.6 pg Normal 26.0-34.0 [facility] Comment on above: Performed By: #### 4 5218 ####[facility] [address] [place], [place] [address] Glenn Gudino M.D. [id number] MCV (RBC) [Entitic vol] 85.4 fL Normal 80.0-100.0 [facility] Comment on above: Result Comment: Resu lts checked Performed By: #### 4 5218 ####[facility] [address] [place], [place] [address] Glenn Gudino M.D. [id number] MEAN CORPUSCULAR HEMOGLOBIN CONC 33.5 g/dL Normal 31.0-37.0 [facility] Comment on above: Performed By: #### 4 9077 ####[facility] [address] [place], [place] [address] Glenn Gudino M.D. [id number] Platelet mean volume (Bld) [Entitic vol] 9.9 fL Normal 9.4-12.4 [facility] Comment on above: Performed By: #### 4 7840 ####[facility] [address] [place] [address] Glenn Gudino M.D. [id number] Platelets (Bld) [#/Vol] 103 10*3/uL Low 150-400 [facility] Comment on above: Performed By: #### 4 5218 ####[facility] [address] [place], [place] [address] Glenn Gudino M.D. [id number] RBC (Bld) [#/Vol] 3.15 10*6/uL Low 4.00-5.20 [facility] Comment on above: Performed By: #### 4 5218 ####[facility] [address] [place], [place] [address] Glenn Gudino M.D. [id number] WBC (Bld) [#/Vol] 11.27 10*3/uL High 4.50-11.00 [facility] Comment on above: Performed By: #### 4 5218 ####[facility] [address] [place], [place] [address] Glenn Gudino M.D. [id number] AUTO NRBC 0.0 % Normal [facility] Comment on above: Performed By: #### 4 5218 ####[facility] [address] [place], [place] [address] Glenn Gudino M.D. [id number] AUTO NRBC ABS COUNT 0.00 K/mcL Normal 0.00-0.00 [facility] Comment on above: Performed By: #### 4 5218 ####[facility] [address] [place], [place] [address] Glenn Gudino M.D. [id number] Erythrocyte distribution width (RBC) [Ratio] 15.9 % High 11.6-14.8 [facility] Comment on above: Performed By: #### 4 5218 ####[facility] [address] [place] [address] Glenn Gudino M.D. [id number] Hematocrit (Bld) [Volume fraction] 19.9 % Low 36.0-46.0 [facility] Comment on above: Performed By: #### 4 5218 ####[facility] [address] [place] [address] Glenn Gudino M.D. [id number] Hemoglobin (Bld) [Mass/Vol] 6.4 g/dL Off scale low 12.0-16.0 [facility] Comment on above: Result Comment: Resu lts called and read back verified by:.[email or web address] to [email or web address] [id number] Performed By: #### 4 5218 ####[facility] [address] [place], [place] [address] Glenn Gudino M.D. [id number] MCH (RBC) [Entitic mass] 30.2 pg Normal 26.0-34.0 [facility] Comment on above: Performed By: #### 4 5218 ####[facility] [address] [place], [place] [address] Glenn Gudino M.D. [id number] MCV (RBC) [Entitic vol] 93.9 fL Normal 80.0-100.0 [facility] Comment on above: Performed By: #### 4 5218 ####[facility] [address] [place], [place] [address] Glenn Gudino M.D. [id number] MEAN CORPUSCULAR HEMOGLOBIN CONC 32.2 g/dL Normal 31.0-37.0 [facility] Comment on above: Performed By: #### 4 5218 ####[facility] [address] [place], [place] [address] Glenn Gudino M.D. [id number] Platelet mean volume (Bld) [Entitic vol] 10.7 fL Normal 9.4-12.4 [facility] Comment on above: Performed By: #### 4 5218 ####[facility] [address] [place], [place] [address] Glenn Gudino M.D. [id number] Platelets (Bld) [#/Vol] 104 10*3/uL Low 150-400 [facility] Comment on above: Performed By: #### 4 5218 ####[facility] [address] [place] [address] Glenn Gudino M.D. [id number] RBC (Bld) [#/Vol] 2.12 10*6/uL Low 4.00-5.20 [facility] Comment on above: Performed By: #### 4 5218 ####[facility] [address] [place] [address] Glenn Gudino M.D. [id number] WBC (Bld) [#/Vol] 9.91 10*3/uL Normal 4.50-11.00 [facility] Comment on above: Performed By: #### 4 5218 ####[facility] [address] [place], [place] [address] Glenn Gudino M.D. [id number] AUTO NRBC 0.0 % Normal [facility] Comment on above: Performed By: #### 4 5218 ####[facility] [address] [place], [place] [address] Glenn Gudino M.D. [id number] AUTO NRBC ABS COUNT 0.00 K/mcL Normal 0.00-0.00 [facility] Comment on above: Performed By: #### 4 5218 ####[facility] [address] [place] [address] Glenn Gudino M.D. [id number] Erythrocyte distribution width (RBC) [Ratio] 16.0 % High 11.6-14.8 [facility] Comment on above: Performed By: #### 4 5218 ####[facility] [address] [place], [place] [address] Glenn Gudino M.D. [id number] Hematocrit (Bld) [Volume fraction] 21.4 % Low 36.0-46.0 [facility] Comment on above: Performed By: #### 4 5218 ####[facility] [address] [place], [place] [address] Glenn Gudino M.D. [id number] Hemoglobin (Bld) [Mass/Vol] 6.9 g/dL Off scale low 12.0-16.0 [facility] Comment on above: Result Comment: Resu lts called and read back verified by:.[email or web address]. Performed By: #### 4 5218 ####[facility] [address] [place], [place] [address] Glenn Gudino M.D. [id number] MCH (RBC) [Entitic mass] 30.0 pg Normal 26.0-34.0 [facility] Comment on above: Performed By: #### 4 5218 ####[facility] [address] [place], [place] [address] Glenn Gudino M.D. [id number] MCV (RBC) [Entitic vol] 93.0 fL Normal 80.0-100.0 [facility] Comment on above: Performed By: #### 4 5218 ####[facility] [address] [place], [place] [address] Glenn Gudino M.D. [id number] MEAN CORPUSCULAR HEMOGLOBIN CONC 32.2 g/dL Normal 31.0-37.0 [facility] Comment on above: Performed By: #### 4 5218 ####[facility] [address] [place], [place] [address] Glenn Gudino M.D. [id number] Platelet mean volume (Bld) [Entitic vol] 10.4 fL Normal 9.4-12.4 [facility] Comment on above: Performed By: #### 4 5218 ####[facility] [address] [place] [address] Glenn Gudino M.D. [id number] Platelets (Bld) [#/Vol] 116 10*3/uL Low 150-400 [facility] Comment on above: Result Comment: Resu lts checked Performed By: #### 4 5218 ####[facility] [address] [place] [address] Glenn Gudino M.D. [id number] RBC (Bld) [#/Vol] 2.30 10*6/uL Low 4.00-5.20 [facility] Comment on above: Performed By: #### 4 5218 ####[facility] [address] [place] [address] Glenn Gudino M.D. [id number] WBC (Bld) [#/Vol] 8.81 10*3/uL Normal 4.50-11.00 [facility] Comment on above: Performed By: #### 4 5218 ####[facility] [address] [place] [address] Glenn Gudino M.D. [id number] CLOSTRIDIOIDES DIFFICILE MENG TINGon 01-31-2024 CLOSTRIDIOIDES DIFFICILE TESTING TOXIGENIC C. DIFFICILE BY PCR DETECTED Toxigenic C. difficile detected in stool. Correlation of test results with patient clinical symptoms is suggested. Young children <3 years of age have an asymptomatic carriage rate as high as 40%. Abnormal [facility] Comment on above: Performed By: #### 4 8543 ####[facility] [address] [place] [address] Glenn Gudino M.D. [id number] CONSULTon 01-31-2024 CONSULT Normal [facility] CV IR DIALYSIS CATHETER INSE RTION TUNNELEDon 01-31-2024 CV IR DIALYSIS CATHETER INSERTION TUNNELED Normal [facility] MAGNESIUM LEVELon 01-31-2024 Magnesium [Mass/Vol] 1.9 mg/dL Normal 1.6-2.4 [facility] Comment on above: Performed By: #### 4 6109 ####[facility] [address] [place] [address] Glenn Gudino M.D. [id number] Magnesium [Mass/Vol] 1.8 mg/dL Normal 1.6-2.4 [facility] Comment on above: Performed By: #### 4 6109 ####[facility] [address] [place] [address] Glenn Gudino M.D. [id number] Magnesium [Mass/Vol] 1.8 mg/dL Normal 1.6-2.4 [facility] Comment on above: Performed By: #### 4 6109 ####[facility] [address] [place] [address] Glenn Gudino M.D. [id number] PHOSPHORUSon 01-31-2024 Phosphate [Mass/Vol] 1.9 mg/dL Low 2.8-4.1 [facility] Comment on above: Performed By: #### 4 6299 ####[facility] [address] [place] [address] Glenn Gudino M.D. [id number] POC GLUCOSE - [facility] 024 Glucose [Mass/Vol] 158 mg/dL High 65-99 [facility] Comment on above: Performed By: #### 4 5097 ####[facility] [address] [place] [address] [id number] RMHPOC Glucose [Mass/Vol] 113 mg/dL High 65-99 [facility] Comment on above: Performed By: #### 4 9952 ####[facility] [address] [place] [address] [id number] RMHPOC Glucose [Mass/Vol] 97 mg/dL Normal 65-99 [facility] Comment on above: Performed By: #### 4 6932 ####[facility] [address] [place] [address] [id number] RMHPOC Glucose [Mass/Vol] 134 mg/dL High [facility] Comment on above: Performed By: #### 4 6932 ####[facility] [address] [place] [address] [id number] RMHPOC Glucose [Mass/Vol] 68 mg/dL Normal [facility] Comment on above: Performed By: #### 4 6932 ####[facility] [address] [place] [address] [id number] RMHPOC Glucose [Mass/Vol] 157 mg/dL High [facility] Comment on above: Performed By: #### 4 6932 ####[facility] [address] [place] [address] [id number] RMHPOC Glucose [Mass/Vol] 117 mg/dL High [facility] Comment on above: Performed By: #### 4 6932 ####[facility] [address] [place] [address] [id number] RMHPOC RENAL FUNCTION PANELon 01-30 Albumin [Mass/Vol] 2.4 g/dL Low 3.2-5.2 [facility] Comment on above: Order Comment: [facility] has implemented the eGFR calculation approach that does not have a coefficient for race that conforms to the NKF-ASN Task Force Recommendations. Performed By: #### 4 6449 ####[facility] [address] [place] [address] Glenn Gudino M.D. [id number] Anion gap [Moles/Vol] 11 mmol/L Normal 10-20 [facility] Comment on above: Order Comment: [facility] has implemented the eGFR calculation approach that does not have a coefficient for race that conforms to the NKF-ASN Task Force Recommendations. Performed By: #### 4 6449 ####[facility] [address] [place] [address] Glenn Gudino M.D. [id number] Calcium [Mass/Vol] 7.2 mg/dL Low 8.4-10.2 [facility] Comment on above: Order Comment: [facility] has implemented the eGFR calculation approach that does not have a coefficient for race that conforms to the NKF-ASN Task Force Recommendations. Performed By: #### 4 6449 ####[facility] [address] [place], [place] [address] Glenn Gudino M.D. [id number] Chloride [Moles/Vol] 100 mmol/L Normal 98-108 [facility] Comment on above: Order Comment: [facility] has implemented the eGFR calculation approach that does not have a coefficient for race that conforms to the NKF-ASN Task Force Recommendations. Performed By: #### 4 6449 ####[facility] [address] [place], [place] [address] Glenn Gudino M.D. [id number] Creatinine [Mass/Vol] 1.17 mg/dL Normal 0.60-1.10 [facility] Comment on above: Order Comment: [facility] has implemented the eGFR calculation approach that does not have a coefficient for race that conforms to the NKF-ASN Task Force Recommendations. Performed By: #### 4 6449 ####[facility] [address] [place], [place] [address] Glenn Gudino M.D. [id number] EGFR 53 mL/min/1.73 m2 Low >=60 [facility] Comment on above: Order Comment: [facility] has implemented the eGFR calculation approach that does not have a coefficient for race that conforms to the NKF-ASN Task Force Recommendations. Result Comment: Joi mated GFR was calculated using the 2020 CKD-EPI creatinine equation. Performed By: #### 4 6449 ####[facility] [address] [place] [address] Glenn Gudino M.D. [id number] Glucose [Mass/Vol] 160 mg/dL High 65-99 [facility] Comment on above: Order Comment: [facility] has implemented the eGFR calculation approach that does not have a coefficient for race that conforms to the NKF-ASN Task Force Recommendations. Performed By: #### 4 6449 ####[facility] [address] [place], [place] [address] Glenn Gudino M.D. [id number] HCO3 (Bld) [Moles/Vol] 30 mmol/L Normal 21-32 [facility] Comment on above: Order Comment: [facility] has implemented the eGFR calculation approach that does not have a coefficient for race that conforms to the NKF-ASN Task Force Recommendations. Performed By: #### 4 6449 ####[facility] [address] [place], [place] [address] Glenn Gudino M.D. [id number] Phosphate [Mass/Vol] 1.4 mg/dL Low 2.8-4.1 [facility] Comment on above: Order Comment: [facility] has implemented the eGFR calculation approach that does not have a coefficient for race that conforms to the NKF-ASN Task Force Recommendations. Performed By: #### 4 6449 ####[facility] [address] [place], [place] [address] Glenn Gudino M.D. [id number] Potassium [Moles/Vol] 4.1 mmol/L Normal 3.5-5.1 [facility] Comment on above: Order Comment: [facility] has implemented the eGFR calculation approach that does not have a coefficient for race that conforms to the NKF-ASN Task Force Recommendations. Performed By: #### 4 6449 ####[facility] [address] [place], [place] [address] Glenn Gudino M.D. [id number] Sodium [Moles/Vol] 137 mmol/L Normal 135-145 [facility] Comment on above: Order Comment: [facility] has implemented the eGFR calculation approach that does not have a coefficient for race that conforms to the NKF-ASN Task Force Recommendations. Performed By: #### 4 6449 ####[facility] [address] [place] [address] Glenn Gudino M.D. [id number] Urea nitrogen [Mass/Vol] 17 mg/dL Normal 8-25 [facility] Comment on above: Order Comment: [facility] has implemented the eGFR calculation approach that does not have a coefficient for race that conforms to the NKF-ASN Task Force Recommendations. Performed By: #### 4 6449 ####[facility] [address] [place], [place] [address] Glenn Gudino M.D. [id number] Urea nitrogen/Creatinine [Mass ratio] 14.5 mg/mg Normal 10.0-20.0 [facility] Comment on above: Order Comment: [facility] has implemented the eGFR calculation approach that does not have a coefficient for race that conforms to the NKF-ASN Task Force Recommendations. Performed By: #### 4 6449 ####[facility] [address] [place], [place] [address] Glenn Gudino M.D. [id number] TYPE AND SCREENon 01-31-2024 TYPE AND SCREEN ABORH: O Positive AB SCREEN: Positive EXPIRATION DATE: 02/03/2024 23:59 EST Normal [facility] Comment on above: Performed By: #### 4 6619 ####PENDING SALE TO [facility] [address] [place] [address] Nurys Oneill MD [id number] RMHTS XR CHEST PA/APon 01-31-2024 XR CHEST PA/AP [facility] Comment on above: Order Comment: Injur y/Trauma or Illness?:Illness/OtherHow long have you had these symptoms (acute/chronic)?:AcuteReason for exam?:chest tube palcement, pneumothoraxHistory of cancer?:uSurgeries, chemotherapy, or radiation?:uType of Exam?:Subsequent/Follow-upAdditional signs and symptoms?:chest tube palcement, pneumothorax APTT HEPARIN COVERAGEon aPTT Coag (Bld) [Time] 88 s High 23-34 [facility] Comment on above: Order Comment: Thera peutic range for APTT's is 68 - 104 seconds Performed By: #### 4 6848 ####[facility] [address] [place] [address] Glenn Gudino M.D. [id number] CALCIUM, IONIZEDon CALCIUM IONIZED 4.4 mg/dL Low 4.5-5.3 [facility] Comment on above: Order Comment: Serum , non-CRRT source. Performed By: #### 4 5190 ####[facility] [address] [place], [place] [id number] Glenn Gudino M.D. [id number] CBCon 01-30-2024 AUTO NRBC 0.0 % Normal [facility] Comment on above: Performed By: #### 4 [id number] ####[facility] [address] [place], [place] [address] Glenn Gudino M.D. [id number] AUTO NRBC ABS COUNT 0.00 K/mcL Normal 0.00-0.00 [facility] Comment on above: Performed By: #### 4 [id number] ####[facility] [address] [place], [place] [address] Glenn Gudino M.D. [id number] Erythrocyte distribution width (RBC) [Ratio] 16.0 % High 11.6-14.8 [facility] Comment on above: Performed By: #### 4 [id number] ####[facility] [address] [place], [place] [address] Glenn Gudino M.D. [id number] Hematocrit (Bld) [Volume fraction] 23.2 % Low 36.0-46.0 [facility] Comment on above: Performed By: #### 4 [id number] ####[facility] [address] [place], [place] [address] Glenn Gudino M.D. [id number] Hemoglobin (Bld) [Mass/Vol] 7.5 g/dL Low 12.0-16.0 [facility] Comment on above: Performed By: #### 4 [id number] ####[facility] [address] [place] [address] Glenn Gudino M.D. [id number] MCH (RBC) [Entitic mass] 29.5 pg Normal 26.0-34.0 [facility] Comment on above: Performed By: #### 4 [id number] ####[facility] [address] [place] [address] Glenn Gudino M.D. [id number] MCV (RBC) [Entitic vol] 91.3 fL Normal 80.0-100.0 [facility] Comment on above: Performed By: #### 4 [id number] ####[facility] [address] [place], [place] [address] Glenn Gudino M.D. [id number] MEAN CORPUSCULAR HEMOGLOBIN CONC 32.3 g/dL Normal 31.0-37.0 [facility] Comment on above: Performed By: #### 4 [id number] ####[facility] [address] [place], [place] [address] Glenn Gudino M.D. [id number] Platelet mean volume (Bld) [Entitic vol] 10.2 fL Normal 9.4-12.4 [facility] Comment on above: Performed By: #### 4 [id number] ####[facility] [address] [place], [place] [address] Glenn Gudino M.D. [id number] Platelets (Bld) [#/Vol] 106 10*3/uL Low 150-400 [facility] Comment on above: Result Comment: Resu lts checked Performed By: #### 4 [id number] ####[facility] [address] [place] [address] Glnen Gudino M.D. [id number] RBC (Bld) [#/Vol] 2.54 10*6/uL Low 4.00-5.20 [facility] Comment on above: Performed By: #### 4 [id number] ####[facility] [address] [place] [address] Glenn Gudino M.D. [id number] WBC (Bld) [#/Vol] 11.63 10*3/uL High 4.50-11.00 [facility] Comment on above: Performed By: #### 4 [id number] ####[facility] [address] [place], [place] [address]arma Gudino M.D. [id number] HEMOGLOBIN AND HEMATOCRITon 01-30-2024 Hematocrit (Bld) [Volume fraction] 26.4 % Low 36.0-46.0 [facility] Comment on above: Performed By: #### 4 6909 ####[facility] [address] [place] [address] Glenn Gudino M.D. [id number] Hemoglobin (Bld) [Mass/Vol] 8.8 g/dL Low 12.0-16.0 [facility] Comment on above: Performed By: #### 4 6909 ####[facility] [address] [place] [address] Glenn Gudino M.D. [id number] MAGNESIUM LEVELon 01-30-2024 Magnesium [Mass/Vol] 2.0 mg/dL Normal 1.6-2.4 [facility] Comment on above: Performed By: #### 4 6109 ####[facility] [address] [place], [place] [address] Glenn Gudino M.D. [id number] POC GLUCOSE - [facility] 024 Glucose [Mass/Vol] 165 mg/dL High [address] [place] [address] Comment on above: Performed By: #### 4 6932 ####[facility] [address] [place] [address] [id number] [facility] Glucose [Mass/Vol] 137 mg/dL High [address] [place] [address] Comment on above: Performed By: #### 4 6932 ####[facility] [address] [place] [address] [id number] [facility] Glucose [Mass/Vol] 129 mg/dL [address] Comment on above: Performed By: #### 4 6932 ####[facility] [address] [place] [address] [id number] [facility] Glucose [Mass/Vol] 159 mg/dL [address] Comment on above: Performed By: #### 4 6932 ####[facility] [address] [place] [address] [id number] [facility] Glucose [Mass/Vol] 151 mg/dL [address] Comment on above: Performed By: #### 4 6932 ####[facility] [address] [place] [address] [id number] [facility] Glucose [Mass/Vol] 157 mg/dL [address] Comment on above: Performed By: #### 4 6932 ####[facility] [address] [place] [address] [id number] [facility] RENAL FUNCTION PANELon 01-29 Albumin [Mass/Vol] 2.1 g/dL Low 3.2-5.2 [facility] Comment on above: Order Comment: [facility] has implemented the eGFR calculation approach that does not have a coefficient for race that conforms to the NKF-ASN Task Force Recommendations. Performed By: #### 4 6449 ####[facility] [address] [place] [address] Glenn Gudino M.D. [id number] Anion gap [Moles/Vol] 11 mmol/L Normal 10-20 [facility] Comment on above: Order Comment: [facility] has implemented the eGFR calculation approach that does not have a coefficient for race that conforms to the NKF-ASN Task Force Recommendations. Performed By: #### 4 6449 ####[facility] [address] [place], [place] [address] Glenn Gudino M.D. [id number] Calcium [Mass/Vol] 7.3 mg/dL Low 8.4-10.2 [facility] Comment on above: Order Comment: [facility] has implemented the eGFR calculation approach that does not have a coefficient for race that conforms to the NKF-ASN Task Force Recommendations. Performed By: #### 4 6449 ####[facility] [address] [place], [place] [address] Glenn Gudino M.D. [id number] Chloride [Moles/Vol] 102 mmol/L Normal 98-108 [facility] Comment on above: Order Comment: [facility] has implemented the eGFR calculation approach that does not have a coefficient for race that conforms to the NKF-ASN Task Force Recommendations. Performed By: #### 4 6449 ####[facility] [address] [place] [address] Glenn Gudino M.D. [id number] Creatinine [Mass/Vol] 2.40 mg/dL High 0.60-1.10 [facility] Comment on above: Order Comment: [facility] has implemented the eGFR calculation approach that does not have a coefficient for race that conforms to the NKF-ASN Task Force Recommendations. Performed By: #### 4 6449 ####[facility] [address] [place] [address] Glenn Gudino M.D. [id number] EGFR 22 mL/min/1.73 m2 Low >=60 [facility] Comment on above: Order Comment: [facility] has implemented the eGFR calculation approach that does not have a coefficient for race that conforms to the NKF-ASN Task Force Recommendations. Result Comment: Joi mated GFR was calculated using the 2020 CKD-EPI creatinine equation. Performed By: #### 4 6449 ####[facility] [address] [place] [address] Glenn Gudino M.D. [id number] Glucose [Mass/Vol] 139 mg/dL High 65-99 [facility] Comment on above: Order Comment: [facility] has implemented the eGFR calculation approach that does not have a coefficient for race that conforms to the NKF-ASN Task Force Recommendations. Performed By: #### 4 6449 ####[facility] [address] [place], [place] [address] Glenn Gudino M.D. [id number] HCO3 (Bld) [Moles/Vol] 28 mmol/L Normal 21-32 [facility] Comment on above: Order Comment: [facility] has implemented the eGFR calculation approach that does not have a coefficient for race that conforms to the NKF-ASN Task Force Recommendations. Performed By: #### 4 6449 ####[facility] [address] [place] [address] Glenn Gudino M.D. [id number] Phosphate [Mass/Vol] 2.8 mg/dL Normal 2.8-4.1 [facility] Comment on above: Order Comment: [facility] has implemented the eGFR calculation approach that does not have a coefficient for race that conforms to the NKF-ASN Task Force Recommendations. Performed By: #### 4 6449 ####[facility] [address] [place] [address] Glenn Gudino M.D. [id number] Potassium [Moles/Vol] 5.1 mmol/L Normal 3.5-5.1 [facility] Comment on above: Order Comment: [facility] has implemented the eGFR calculation approach that does not have a coefficient for race that conforms to the NKF-ASN Task Force Recommendations. Result Comment: Marisol leblanc Hemolyzed Performed By: #### 4 6449 ####[facility] [address] [place] [address] Glenn Gudino M.D. [id number] Sodium [Moles/Vol] 136 mmol/L Normal 135-145 [facility] Comment on above: Order Comment: [facility] has implemented the eGFR calculation approach that does not have a coefficient for race that conforms to the NKF-ASN Task Force Recommendations. Performed By: #### 4 6449 ####[facility] [address] [place], [place] [address] Glenn Gudino M.D. [id number] Urea nitrogen [Mass/Vol] 36 mg/dL High 8-25 [facility] Comment on above: Order Comment: [facility] has implemented the eGFR calculation approach that does not have a coefficient for race that conforms to the NKF-ASN Task Force Recommendations. Performed By: #### 4 6449 ####[facility] [address] [place] [address] Glenn Gudino M.D. [id number] Urea nitrogen/Creatinine [Mass ratio] 15.0 mg/mg Normal 10.0-20.0 [facility] Comment on above: Order Comment: [facility] has implemented the eGFR calculation approach that does not have a coefficient for race that conforms to the NKF-ASN Task Force Recommendations. Performed By: #### 4 6449 ####[facility] [address] [place] [address] Glenn Gudino M.D. [id number] Albumin [Mass/Vol] 2.1 g/dL Low 3.2-5.2 [facility] Comment on above: Order Comment: [facility] has implemented the eGFR calculation approach that does not have a coefficient for race that conforms to the NKF-ASN Task Force Recommendations. Performed By: #### 4 6449 ####[facility] [address] [place] [address] Glenn Gudino M.D. [id number] Anion gap [Moles/Vol] 12 mmol/L Normal 10-20 [facility] Comment on above: Order Comment: [facility] has implemented the eGFR calculation approach that does not have a coefficient for race that conforms to the NKF-ASN Task Force Recommendations. Performed By: #### 4 6449 ####[facility] [address] [place] [address] Glenn Gudino M.D. [id number] Calcium [Mass/Vol] 7.5 mg/dL Low 8.4-10.2 [facility] Comment on above: Order Comment: [facility] has implemented the eGFR calculation approach that does not have a coefficient for race that conforms to the NKF-ASN Task Force Recommendations. Performed By: #### 4 6449 ####[facility] [address] [place] [address] Glenn Gudino M.D. [id number] Chloride [Moles/Vol] 99 mmol/L Normal 98-108 [facility] Comment on above: Order Comment: [facility] has implemented the eGFR calculation approach that does not have a coefficient for race that conforms to the NKF-ASN Task Force Recommendations. Performed By: #### 4 6449 ####[facility] [address] [place] [address] Glenn Gudino M.D. [id number] Creatinine [Mass/Vol] 2.02 mg/dL High 0.60-1.10 [facility] Comment on above: Order Comment: [facility] has implemented the eGFR calculation approach that does not have a coefficient for race that conforms to the NKF-ASN Task Force Recommendations. Performed By: #### 4 6449 ####[facility] [address] [place] [address] Glenn Gudino M.D. [id number] EGFR 28 mL/min/1.73 m2 Low >=60 [facility] Comment on above: Order Comment: [facility] has implemented the eGFR calculation approach that does not have a coefficient for race that conforms to the NKF-ASN Task Force Recommendations. Result Comment: Joi mated GFR was calculated using the 2020 CKD-EPI creatinine equation. Performed By: #### 4 6449 ####[facility] [address] [place] [address] Glenn Gudino M.D. [id number] Glucose [Mass/Vol] 150 mg/dL High 65-99 [facility] Comment on above: Order Comment: [facility] has implemented the eGFR calculation approach that does not have a coefficient for race that conforms to the NKF-ASN Task Force Recommendations. Performed By: #### 4 6449 ####[facility] [address] [place] [address] Glenn Gudino M.D. [id number] HCO3 (Bld) [Moles/Vol] 27 mmol/L Normal 21-32 [facility] Comment on above: Order Comment: [facility] has implemented the eGFR calculation approach that does not have a coefficient for race that conforms to the NKF-ASN Task Force Recommendations. Performed By: #### 4 6449 ####[facility] [address] [place] [address] Glenn Gudino M.D. [id number] Phosphate [Mass/Vol] 2.6 mg/dL Low 2.8-4.1 [facility] Comment on above: Order Comment: [facility] has implemented the eGFR calculation approach that does not have a coefficient for race that conforms to the NKF-ASN Task Force Recommendations. Performed By: #### 4 6449 ####[facility] [address] [place] [address] Glenn Gudino M.D. [id number] Potassium [Moles/Vol] 4.3 mmol/L Normal 3.5-5.1 [facility] Comment on above: Order Comment: [facility] has implemented the eGFR calculation approach that does not have a coefficient for race that conforms to the NKF-ASN Task Force Recommendations. Performed By: #### 4 6449 ####[facility] [address] [place], [place] [address] Glenn Gudino M.D. [id number] Sodium [Moles/Vol] 134 mmol/L Low 135-145 [facility] Comment on above: Order Comment: [facility] has implemented the eGFR calculation approach that does not have a coefficient for race that conforms to the NKF-ASN Task Force Recommendations. Performed By: #### 4 6449 ####[facility] [address] [place], [place] [address] Glenn Gudino M.D. [id number] Urea nitrogen [Mass/Vol] 28 mg/dL High 8-25 [facility] Comment on above: Order Comment: [facility] has implemented the eGFR calculation approach that does not have a coefficient for race that conforms to the NKF-ASN Task Force Recommendations. Performed By: #### 4 6449 ####[facility] [address] [place] [address] Glenn Gudino M.D. [id number] Urea nitrogen/Creatinine [Mass ratio] 13.9 mg/mg Normal 10.0-20.0 [facility] Comment on above: Order Comment: [facility] has implemented the eGFR calculation approach that does not have a coefficient for race that conforms to the NKF-ASN Task Force Recommendations. Performed By: #### 4 6449 ####[facility] [address] [place] [address] Glenn Gudino M.D. [id number] XR CHEST PA/APon 01-30-2024 XR CHEST PA/AP Normal [facility] Comment on above: Order Comment: Injur y/Trauma or Illness?:Illness/OtherHow long have you had these symptoms (acute/chronic)?:AcuteReason for exam?:chest tube palcement, pneumothoraxHistory of cancer?:uSurgeries, chemotherapy, or radiation?:uType of Exam?:Subsequent/Follow-upAdditional signs and symptoms?:chest tube palcement, pneumothorax APTT HEPARIN COVERAGEon aPTT Coag (Bld) [Time] 90 s High 23-34 [facility] Comment on above: Order Comment: Thera peutic range for APTT's is 68 - 104 seconds Performed By: #### 4 6854 ####[facility] [address] [place] [address] Glenn Gudino M.D. [id number] aPTT Coag (Bld) [Time] 93 s High 23-34 [facility] Comment on above: Order Comment: Thera peutic range for APTT's is 68 - 104 seconds Result Comment: Resu lts checked. Performed By: #### 4 4810 ####[facility] [address] [place] [address] Glenn Gudino M.D. [id number] aPTT Coag (Bld) [Time] 66 s High 23-34 [facility] Comment on above: Order Comment: Thera peutic range for APTT's is 68 - 104 seconds Performed By: #### 4 6830 ####[facility] [address] [place] [address] Glenn Gudino M.D. [id number] aPTT Coag (Bld) [Time] 54 s High 23-34 [facility] Comment on above: Order Comment: Thera peutic range for APTT's is 68 - 104 secondsResults checked. Performed By: #### 4 8881 ####[facility] [address] [place] [address] Glenn Gudino M.D. [id number] CALCIUM, IONIZEDon CALCIUM IONIZED 4.6 mg/dL Normal 4.5-5.3 [facility] Comment on above: Order Comment: Serum , non-CRRT source. Performed By: #### 4 5190 ####[facility] [address] [place] [address] Glenn Gudino M.D. [id number] CBCon 01-29-2024 AUTO NRBC 0.0 % Normal [facility] Comment on above: Performed By: #### 4 5218 ####[facility] [address] [place], [place] [address] Glenn Gudino M.D. [id number] AUTO NRBC ABS COUNT 0.00 K/mcL Normal 0.00-0.00 [facility] Comment on above: Performed By: #### 4 5218 ####[facility] [address] [place], [place] [address] Glenn Gudino M.D. [id number] Erythrocyte distribution width (RBC) [Ratio] 17.1 % High 11.6-14.8 [facility] Comment on above: Performed By: #### 4 5218 ####[facility] [address] [place], [place] [address] Glenn Gudino M.D. [id number] Hematocrit (Bld) [Volume fraction] 24.0 % Low 36.0-46.0 [facility] Comment on above: Performed By: #### 4 5218 ####[facility] [address] [place], [place] [address] Glenn Gudino M.D. [id number] Hemoglobin (Bld) [Mass/Vol] 7.7 g/dL Low 12.0-16.0 [facility] Comment on above: Performed By: #### 4 5218 ####[facility] [address] [place], [place] [address] Glenn Gudino M.D. [id number] MCH (RBC) [Entitic mass] 28.9 pg Normal 26.0-34.0 [facility] Comment on above: Performed By: #### 4 5218 ####[facility] [address] [place] [address] Glenn Gudino M.D. [id number] MCV (RBC) [Entitic vol] 90.2 fL Normal 80.0-100.0 [facility] Comment on above: Performed By: #### 4 5218 ####[facility] [address] [place] [address] Glenn Gudino M.D. [id number] MEAN CORPUSCULAR HEMOGLOBIN CONC 32.1 g/dL Normal 31.0-37.0 [facility] Comment on above: Performed By: #### 4 5218 ####[facility] [address] [place], [place] [address] Glenn Gudino M.D. [id number] Platelet mean volume (Bld) [Entitic vol] 10.2 fL Normal 9.4-12.4 [facility] Comment on above: Performed By: #### 4 5218 ####[facility] [address] [place], [place] [address] Glenn Gudino M.D. [id number] Platelets (Bld) [#/Vol] 122 10*3/uL Low 150-400 [facility] Comment on above: Performed By: #### 4 5218 ####[facility] [address] [place], [place] [address] Glenn Gudino M.D. [id number] RBC (Bld) [#/Vol] 2.66 10*6/uL Low 4.00-5.20 [facility] Comment on above: Performed By: #### 4 5218 ####[facility] [address] [place], [place] [address] Glenn Gudino M.D. [id number] WBC (Bld) [#/Vol] 8.35 10*3/uL Normal 4.50-11.00 [facility] Comment on above: Performed By: #### 4 5218 ####[facility] [address] [place] [address]38 Glnen Gudino M.D. [id number] HEPATITIS B SURFACE ANTIGENo n 01-29-2024 HEPATITIS B SURFACE ANTIGEN Negative Normal Negative [facility] Comment on above: Order Comment: Test performed using [employer] immunoassay system Performed By: #### 4 4081 ####[facility] [address] [place], [place] [address] Glenn Gudino M.D. [id number] MAGNESIUM LEVELon 01-29-2024 Magnesium [Mass/Vol] 2.2 mg/dL Normal 1.6-2.4 [facility] Comment on above: Performed By: #### 4 6109 ####[facility] [address] [place] [address] Glenn Gudino M.D. [id number] POC GLUCOSE [facility] 024 Glucose [Mass/Vol] 167 mg/dL High 65-99 [facility] Comment on above: Performed By: #### 4 9538 ####[facility] [address] [place] [address] [id number] [facility] Glucose [Mass/Vol] 121 mg/dL High 65-99 [facility] Comment on above: Performed By: #### 4 0942 ####[facility] [address] [place] [address] [id number] RM[facility] Glucose [Mass/Vol] 54 mg/dL Low 65-99 [facility] Comment on above: Performed By: #### 4 7263 ####[facility] [address] [place] [address] [id number] [facility] Glucose [Mass/Vol] 103 mg/dL High 65-99 [facility] Comment on above: Performed By: #### 4 6932 ####[facility] [address] [place] [address] [id number] [facility] Glucose [Mass/Vol] 131 mg/dL High 65-99 [facility] Comment on above: Performed By: #### 4 6932 ####[facility] [address] [place] [address] [id number] [facility] Glucose [Mass/Vol] 96 mg/dL Normal 65-99 [facility] Comment on above: Performed By: #### 4 6932 ####[facility] [address] [place] [address] [id number] [facility] Glucose [Mass/Vol] 114 mg/dL High 65-99 [facility] Comment on above: Performed By: #### 4 6932 ####[facility] [address] [place] [address] [id number] [facility] RENAL FUNCTION PANELon 01-28 Albumin [Mass/Vol] 2.3 g/dL Low 3.2-5.2 [facility] Comment on above: Order Comment: [facility] has implemented the eGFR calculation approach that does not have a coefficient for race that conforms to the NKF-ASN Task Force Recommendations. Performed By: #### 4 6449 ####[facility] [address] [place] [address] Glenn Gudino M.D. [id number] Anion gap [Moles/Vol] 11 mmol/L Normal 10-20 [facility] Comment on above: Order Comment: [facility] has implemented the eGFR calculation approach that does not have a coefficient for race that conforms to the NKF-ASN Task Force Recommendations. Performed By: #### 4 6449 ####[facility] [address] [place] [address] Glenn Gudino M.D. [id number] Calcium [Mass/Vol] 7.3 mg/dL Low 8.4-10.2 [facility] Comment on above: Order Comment: [facility] has implemented the eGFR calculation approach that does not have a coefficient for race that conforms to the NKF-ASN Task Force Recommendations. Performed By: #### 4 6449 ####[facility] [address] [place] [address] Glenn Gudino M.D. [id number] Chloride [Moles/Vol] 100 mmol/L Normal 98-108 [facility] Comment on above: Order Comment: [facility] has implemented the eGFR calculation approach that does not have a coefficient for race that conforms to the NKF-ASN Task Force Recommendations. Performed By: #### 4 6449 ####[facility] [address] [place], [place] [address] Glenn Gudino M.D. [id number] Creatinine [Mass/Vol] 1.90 mg/dL High 0.60-1.10 [facility] Comment on above: Order Comment: [facility] has implemented the eGFR calculation approach that does not have a coefficient for race that conforms to the NKF-ASN Task Force Recommendations. Performed By: #### 4 6449 ####[facility] [address] [place] [address] Glenn Gudino M.D. [id number] EGFR 30 mL/min/1.73 m2 Low >=60 [facility] Comment on above: Order Comment: [facility] has implemented the eGFR calculation approach that does not have a coefficient for race that conforms to the NKF-ASN Task Force Recommendations. Result Comment: Joi mated GFR was calculated using the 2020 CKD-EPI creatinine equation. Performed By: #### 4 6449 ####[facility] [address] [place] [address] Glenn Gudino M.D. [id number] Glucose [Mass/Vol] 151 mg/dL High 65-99 [facility] Comment on above: Order Comment: [facility] has implemented the eGFR calculation approach that does not have a coefficient for race that conforms to the NKF-ASN Task Force Recommendations. Performed By: #### 4 6449 ####[facility] [address] [place] [address] 87276 Glenn Gudino M.D. [id number] HCO3 (Bld) [Moles/Vol] 28 mmol/L Normal 21-32 [facility] Comment on above: Order Comment: [facility] has implemented the eGFR calculation approach that does not have a coefficient for race that conforms to the NKF-ASN Task Force Recommendations. Performed By: #### 4 6449 ####[facility] [address] [place], [place] [address] Glenn Gudino M.D. [id number] Phosphate [Mass/Vol] 2.2 mg/dL Low 2.8-4.1 [facility] Comment on above: Order Comment: [facility] has implemented the eGFR calculation approach that does not have a coefficient for race that conforms to the NKF-ASN Task Force Recommendations. Performed By: #### 4 6449 ####[facility] [address] [place] [address] 03546 Glenn Gudino M.D. [id number] Potassium [Moles/Vol] 4.3 mmol/L Normal 3.5-5.1 [facility] Comment on above: Order Comment: [facility] has implemented the eGFR calculation approach that does not have a coefficient for race that conforms to the NKF-ASN Task Force Recommendations. Performed By: #### 4 6449 ####[facility] [address] [place] [address] 10865 Glenn Gudino M.D. [id number] Sodium [Moles/Vol] 135 mmol/L Normal 135-145 [facility] Comment on above: Order Comment: [facility] has implemented the eGFR calculation approach that does not have a coefficient for race that conforms to the NKF-ASN Task Force Recommendations. Performed By: #### 4 6449 ####[facility] [address] [place] [address] 10421 Glenn Gudino M.D. [id number] Urea nitrogen [Mass/Vol] 26 mg/dL High 8-25 [facility] Comment on above: Order Comment: [facility] has implemented the eGFR calculation approach that does not have a coefficient for race that conforms to the NKF-ASN Task Force Recommendations. Performed By: #### 4 6449 ####[facility] [address] [place] [address] 01580 Glenn Gudino M.D. [id number] Urea nitrogen/Creatinine [Mass ratio] 13.7 mg/mg Normal 10.0-20.0 [facility] Comment on above: Order Comment: [facility] has implemented the eGFR calculation approach that does not have a coefficient for race that conforms to the NKF-ASN Task Force Recommendations. Performed By: #### 4 6449 ####[facility] [address] [place], [place] [address] Glenn Gudino M.D. [id number] Albumin [Mass/Vol] 1.5 g/dL Low 3.2-5.2 [facility] Comment on above: Order Comment: [facility] has implemented the eGFR calculation approach that does not have a coefficient for race that conforms to the NKF-ASN Task Force Recommendations. Performed By: #### 4 6449 ####[facility] [address] [place] [address] 90642 Glenn Gudino M.D. [id number] Anion gap [Moles/Vol] 13 mmol/L Normal 10-20 [facility] Comment on above: Order Comment: [facility] has implemented the eGFR calculation approach that does not have a coefficient for race that conforms to the NKF-ASN Task Force Recommendations. Performed By: #### 4 6449 ####[facility] [address] [place], [place] [address] Glenn Gudino M.D. [id number] Calcium [Mass/Vol] 7.3 mg/dL Low 8.4-10.2 [facility] Comment on above: Order Comment: [facility] has implemented the eGFR calculation approach that does not have a coefficient for race that conforms to the NKF-ASN Task Force Recommendations. Performed By: #### 4 6449 ####[facility] [address] [place] [address] 76848 Glenn Gudino M.D. [id number] Chloride [Moles/Vol] 104 mmol/L Normal 98-108 [facility] Comment on above: Order Comment: [facility] has implemented the eGFR calculation approach that does not have a coefficient for race that conforms to the NKF-ASN Task Force Recommendations. Performed By: #### 4 6449 ####[facility] [address] [place], [place] [address] Glenn Gudino M.D. [id number] Creatinine [Mass/Vol] 2.66 mg/dL High 0.60-1.10 [facility] Comment on above: Order Comment: [facility] has implemented the eGFR calculation approach that does not have a coefficient for race that conforms to the NKF-ASN Task Force Recommendations. Performed By: #### 4 6449 ####[facility] [address] [place] [address] 32828 Glenn Gudino M.D. [id number] EGFR 20 mL/min/1.73 m2 Low >=60 [facility] Comment on above: Order Comment: [facility] has implemented the eGFR calculation approach that does not have a coefficient for race that conforms to the NKF-ASN Task Force Recommendations. Result Comment: Joi mated GFR was calculated using the 2020 CKD-EPI creatinine equation. Performed By: #### 4 6449 ####[facility] [address] [place] [address] 71372 Glenn Gudino M.D. [id number] Glucose [Mass/Vol] 104 mg/dL High 65-99 [facility] Comment on above: Order Comment: [facility] has implemented the eGFR calculation approach that does not have a coefficient for race that conforms to the NKF-ASN Task Force Recommendations. Performed By: #### 4 6449 ####[facility] [address] [place], [place] [address] Glenn Gudino M.D. [id number] HCO3 (Bld) [Moles/Vol] 23 mmol/L Normal 21-32 [facility] Comment on above: Order Comment: [facility] has implemented the eGFR calculation approach that does not have a coefficient for race that conforms to the NKF-ASN Task Force Recommendations. Performed By: #### 4 6449 ####[facility] [address] [place], [place] [address] Glenn Gudino M.D. [id number] Phosphate [Mass/Vol] 3.1 mg/dL Normal 2.8-4.1 [facility] Comment on above: Order Comment: [facility] has implemented the eGFR calculation approach that does not have a coefficient for race that conforms to the NKF-ASN Task Force Recommendations. Performed By: #### 4 6449 ####[facility] [address] [place], [place] [address] Glenn Gudino M.D. [id number] Potassium [Moles/Vol] 5.0 mmol/L Normal 3.5-5.1 [facility] Comment on above: Order Comment: [facility] has implemented the eGFR calculation approach that does not have a coefficient for race that conforms to the NKF-ASN Task Force Recommendations. Performed By: #### 4 6449 ####[facility] [address] [place], [place] [address] Glenn Gudino M.D. [id number] Sodium [Moles/Vol] 135 mmol/L Normal 135-145 [facility] Comment on above: Order Comment: [facility] has implemented the eGFR calculation approach that does not have a coefficient for race that conforms to the NKF-ASN Task Force Recommendations. Performed By: #### 4 6449 ####[facility] [address] [place] [address] 13910 Glenn Gudino M.D. [id number] Urea nitrogen [Mass/Vol] 42 mg/dL High 8-25 [facility] Comment on above: Order Comment: [facility] has implemented the eGFR calculation approach that does not have a coefficient for race that conforms to the NKF-ASN Task Force Recommendations. Performed By: #### 4 6449 ####[facility] [address] [place] [address] 86492 Glenn Gudino M.D. [id number] Urea nitrogen/Creatinine [Mass ratio] 15.8 mg/mg Normal 10.0-20.0 [facility] Comment on above: Order Comment: [facility] has implemented the eGFR calculation approach that does not have a coefficient for race that conforms to the NKF-ASN Task Force Recommendations. Performed By: #### 4 6449 ####[facility] [address] [place] [address] 18498 Glenn Gudino M.D. [id number] XR ABDOMEN /KUB/FLAT PLATE/1 VIEWon 01-29-2024 XR ABDOMEN /KUB/FLAT PLATE/1 VIEW Normal [facility] Comment on above: Order Comment: Injur y/Trauma or Illness?:Illness/OtherHow long have you had these symptoms (acute/chronic)?:AcuteReason for exam?:NGT placementHistory of cancer?:uSurgeries, chemotherapy, or radiation?:uType of Exam?:UnknownAdditional signs and symptoms?:no XR CHEST PA/APon 01-29-2024 XR CHEST PA/AP Normal [facility] Comment on above: Order Comment: Injur y/Trauma or Illness?:Illness/OtherHow long have you had these symptoms (acute/chronic)?:AcuteReason for exam?:chest tube palcement, pneumothoraxHistory of cancer?:uSurgeries, chemotherapy, or radiation?:uType of Exam?:Subsequent/Follow-upAdditional signs and symptoms?:chest tube palcement, pneumothorax ANTIBODY IDENTIFICATION-Con 01-28-2024 ANTIBODY IDENTIFICATION-C Normal [facility] Comment on above: Performed By: #### 4 6427_Anti-C ####PENDING SALE TO [facility] [address] [place] [address] Nurys Oneill MD [id number] [facility] HEPARIN COVERAGEon aPTT Coag (Bld) [Time] 70 s High 23-34 Ri [facility] Comment on above: Order Comment: Thera peutic range for APTT's is 68 - 104 seconds Result Comment: Resu lts checked. Performed By: #### 4 6848 ####[facility] [address] [place] [address] Glenn Gudino M.D. [id number] B12/FOLATEon 01-28-2024 Cobalamin (Vitamin B12) [Mass/Vol] 879 pg/mL Normal 232-1245 [facility] Comment on above: Performed By: #### 4 6967 ####[facility] [address] [place] [address] Glenn Gudino M.D. [id number] FOLATE 10.0 ng/mL Normal 3.1-17.5 [facility] Comment on above: Result Comment: Defi cient <2.2Borderline 2.2 - 3.0Excessive >17.5 Performed By: #### 4 6912 ####[facility] [address] [place] [address] Glenn Gudino M.D. [id number] CALCIUM, IONIZEDon CALCIUM IONIZED 4.5 mg/dL Normal 4.5-5.3 [facility] Comment on above: Order Comment: Serum , non-CRRT source. Performed By: #### 4 5190 ####[facility] [address] [place], [place] [address] Glenn Gudino M.D. [id number] CBCon 01-28-2024 AUTO NRBC 0.0 % Normal [facility] Comment on above: Order Comment: One h our post RBC transfusion Performed By: #### 4 5218 ####[facility] [address] [place] [address] Glenn Gudino M.D. [id number] AUTO NRBC ABS COUNT 0.00 K/mcL Normal 0.00-0.00 [facility] Comment on above: Order Comment: One h our post RBC transfusion Performed By: #### 4 5218 ####[facility] [address] [place] [address] Glenn Gudino M.D. [id number] Erythrocyte distribution width (RBC) [Ratio] 16.3 % High 11.6-14.8 [facility] Comment on above: Order Comment: One h our post RBC transfusion Performed By: #### 4 5218 ####[facility] [address] [place], [place] [address] Glenn Gudino M.D. [id number] Hematocrit (Bld) [Volume fraction] 25.3 % Low 36.0-46.0 [facility] Comment on above: Order Comment: One h our post RBC transfusion Performed By: #### 4 5218 ####[facility] [address] [place], [place] [address] Glenn Gudnio M.D. [id number] Hemoglobin (Bld) [Mass/Vol] 8.2 g/dL Low 12.0-16.0 [facility] Comment on above: Order Comment: One h our post RBC transfusion Performed By: #### 4 5218 ####[facility] [address] [place], [place] [address] Glenn Gudino M.D. [id number] MCH (RBC) [Entitic mass] 29.3 pg Normal 26.0-34.0 [facility] Comment on above: Order Comment: One h our post RBC transfusion Performed By: #### 4 5218 ####[facility] [address] [place] [address] Glenn Gudino M.D. [id number] MCV (RBC) [Entitic vol] 90.4 fL Normal 80.0-100.0 [facility] Comment on above: Order Comment: One h our post RBC transfusion Performed By: #### 4 5218 ####[facility] [address] [place] [address] Glenn Gudino M.D. [id number] MEAN CORPUSCULAR HEMOGLOBIN CONC 32.4 g/dL Normal 31.0-37.0 [facility] Comment on above: Order Comment: One h our post RBC transfusion Performed By: #### 4 5218 ####[facility] [address] [place] [address] Glenn Gudino M.D. [id number] Platelet mean volume (Bld) [Entitic vol] 10.9 fL Normal 9.4-12.4 [facility] Comment on above: Order Comment: One h our post RBC transfusion Performed By: #### 4 5218 ####[facility] [address] [place] [address] Glenn Gudino M.D. [id number] Platelets (Bld) [#/Vol] 118 10*3/uL Low 150-400 [facility] Comment on above: Order Comment: One h our post RBC transfusion Performed By: #### 4 5218 ####[facility] [address] [place], [place] [address] Glenn Gudino M.D. [id number] RBC (Bld) [#/Vol] 2.80 10*6/uL Low 4.00-5.20 [facility] Comment on above: Order Comment: One h our post RBC transfusion Performed By: #### 4 5218 ####[facility] [address] [place], [place] [address] Glenn Gudino M.D. [id number] WBC (Bld) [#/Vol] 7.55 10*3/uL Normal 4.50-11.00 [facility] Comment on above: Order Comment: One h our post RBC transfusion Performed By: #### 4 5218 ####[facility] [address] [place] [address] Glenn Gudino M.D. [id number] AUTO NRBC 0.0 % Normal [facility] Comment on above: Performed By: #### 4 5218 ####[facility] [address] [place], [place] [address] Glenn Gudino M.D. [id number] AUTO NRBC ABS COUNT 0.00 K/mcL Normal 0.00-0.00 [facility] Comment on above: Performed By: #### 4 5218 ####[facility] [address] [place], [place] [address] Glenn Gudino M.D. [id number] Erythrocyte distribution width (RBC) [Ratio] 17.2 % High 11.6-14.8 [facility] Comment on above: Performed By: #### 4 5218 ####[facility] [address] [place], [place] [address]Karma Gudino M.D. [id number] Hematocrit (Bld) [Volume fraction] 22.0 % Low 36.0-46.0 [facility] Comment on above: Performed By: #### 4 5218 ####[facility] [address] [place], [place] [address] Glenn Gudino M.D. [id number] Hemoglobin (Bld) [Mass/Vol] 7.2 g/dL Low 12.0-16.0 [facility] Comment on above: Result Comment: Repe ated verified Performed By: #### 4 5246 ####[facility] [address] [place] [address] 00723 Glenn Gudino M.D. [id number] MCH (RBC) [Entitic mass] 29.8 pg Normal 26.0-34.0 [facility] Comment on above: Performed By: #### 4 5218 ####[facility] [address] [place], [place] [address] Glenn Gudino M.D. [id number] MCV (RBC) [Entitic vol] 90.9 fL Normal 80.0-100.0 [facility] Comment on above: Performed By: #### 4 5218 ####[facility] [address] [place], [place] [address] Glenn Gudino M.D. [id number] MEAN CORPUSCULAR HEMOGLOBIN CONC 32.7 g/dL Normal 31.0-37.0 [facility] Comment on above: Performed By: #### 4 5218 ####[facility] [address] [place], [place] [address] Glenn Gudino M.D. [id number] Platelet mean volume (Bld) [Entitic vol] 11.2 fL Normal 9.4-12.4 [facility] Comment on above: Performed By: #### 4 5218 ####[facility] [address] [place], [place] [address] Glenn Gudino M.D. [id number] Platelets (Bld) [#/Vol] 130 10*3/uL Low 150-400 [facility] Comment on above: Performed By: #### 4 5218 ####[facility] [address] [place], [place] [address] Glenn Gudino M.D. [id number] RBC (Bld) [#/Vol] 2.42 10*6/uL Low 4.00-5.20 [facility] Comment on above: Performed By: #### 4 5218 ####[facility] [address] [place] [address] 52426 Glenn Gudino M.D. [id number] WBC (Bld) [#/Vol] 8.26 10*3/uL Normal 4.50-11.00 [facility] Comment on above: Performed By: #### 4 5218 ####[facility] [address] [place] [address] Glenn Gudino M.D. [id number] IRONon 01-28-2024 Iron [Mass/Vol] 49 ug/dL Normal 30-160 [facility] Comment on above: Performed By: #### 4 6039 ####[facility] [address] [place] [address] Glenn Gudino M.D. [id number] Performed By: #### 4 7645 ####[facility] [address] [place] [address] Glenn Gudino M.D. [id number] IRON STUDY WITH FERRITINon 0 01-28-2024 Ferritin [Mass/Vol] 3753 ng/mL High 13-150 [facility] Comment on above: Performed By: #### 4 7645 ####[facility] [address] [place], [place] [address] Glenn Gudino M.D. [id number] IRON SATURATION 70 % High 20-50 [facility] Comment on above: Performed By: #### 4 7645 ####[facility] [address] [place], [place] [address] Glenn Gudino M.D. [id number] TIBC (CALCULATED) 70 mcg/dL Low 225-430 [facility] Comment on above: Performed By: #### 4 7638 ####[facility] [address] [place], [place] [address]Karma Gudino M.D. [id number] MAGNESIUM LEVELon 01-28-2024 Magnesium [Mass/Vol] 2.2 mg/dL Normal 1.6-2.4 [facility] Comment on above: Performed By: #### 4 6109 ####[facility] [address] [place] [address] Glenn Gudino M.D. [id number] POC GLUCOSE - [facility] 024 Glucose [Mass/Vol] 119 mg/dL High [address] [place] [address] Comment on above: Performed By: #### 4 2112 ####[facility] [address] [place] [address] [id number] [facility] Glucose [Mass/Vol] 128 mg/dL High [address] [place] [address] Comment on above: Performed By: #### 4 9634 ####[facility] [address] [place] [address] [id number] [facility] Glucose [Mass/Vol] 123 mg/dL High [address] [place] [address] Comment on above: Performed By: #### 4 6340 ####[facility] [address] [place] [address] [id number] [facility] Glucose [Mass/Vol] 114 mg/dL High [address] [place] [address] Comment on above: Performed By: #### 4 2157 ####[facility] [address] [place] [address] [id number] [facility] Glucose [Mass/Vol] 65 mg/dL Normal [address] [place] [address] Comment on above: Performed By: #### 4 0400 ####[facility] [address] [place] [address] [id number] [facility] Glucose [Mass/Vol] 85 mg/dL Normal [address] [place] [address] Comment on above: Performed By: #### 4 3924 ####[facility] [address] [place] [address] [id number] [facility] Glucose [Mass/Vol] 126 mg/dL High [address] [place] [address] Comment on above: Performed By: #### 4 0077 ####PENDING S[facility] TO [facility] [address] [place] [address] [id number] [facility] RENAL FUNCTION PANELon 01-27 Albumin [Mass/Vol] 1.6 g/dL Low 3.2-5.2 [facility] Comment on above: Order Comment: [facility] has implemented the eGFR calculation approach that does not have a coefficient for race that conforms to the NKF-ASN Task Force Recommendations. Performed By: #### 4 6449 ####[facility] [address] [place] [address] Glenn Gudino M.D. [id number] Anion gap [Moles/Vol] 12 mmol/L Normal 10-20 [facility] Comment on above: Order Comment: [facility] has implemented the eGFR calculation approach that does not have a coefficient for race that conforms to the NKF-ASN Task Force Recommendations. Performed By: #### 4 6449 ####[facility] [address] [place] [address] Glenn Gudino M.D. [id number] Calcium [Mass/Vol] 7.2 mg/dL Low 8.4-10.2 [facility] Comment on above: Order Comment: [facility] has implemented the eGFR calculation approach that does not have a coefficient for race that conforms to the NKF-ASN Task Force Recommendations. Performed By: #### 4 6449 ####[facility] [address] [place] [address] Glenn Gudino M.D. [id number] Chloride [Moles/Vol] 103 mmol/L Normal 98-108 [facility] Comment on above: Order Comment: [facility] has implemented the eGFR calculation approach that does not have a coefficient for race that conforms to the NKF-ASN Task Force Recommendations. Performed By: #### 4 6449 ####[facility] [address] [place] [address] Glenn Gudino M.D. [id number] Creatinine [Mass/Vol] 2.36 mg/dL High 0.60-1.10 [facility] Comment on above: Order Comment: [facility] has implemented the eGFR calculation approach that does not have a coefficient for race that conforms to the NKF-ASN Task Force Recommendations. Performed By: #### 4 6449 ####[facility] [address] [place] [address] 41519 Glenn Gudino M.D. [id number] EGFR 23 mL/min/1.73 m2 Low >=60 [facility] Comment on above: Order Comment: [facility] has implemented the eGFR calculation approach that does not have a coefficient for race that conforms to the NKF-ASN Task Force Recommendations. Result Comment: Joi mated GFR was calculated using the 2020 CKD-EPI creatinine equation. Performed By: #### 4 6449 ####[facility] [address] [place] [address] 52327 Glenn Gudino M.D. [id number] Glucose [Mass/Vol] 120 mg/dL High 65-99 [facility] Comment on above: Order Comment: [facility] has implemented the eGFR calculation approach that does not have a coefficient for race that conforms to the NKF-ASN Task Force Recommendations. Performed By: #### 4 6449 ####[facility] [address] [place] [address] 98013 Glenn Gudino M.D. [id number] HCO3 (Bld) [Moles/Vol] 24 mmol/L Normal 21-32 [facility] Comment on above: Order Comment: [facility] has implemented the eGFR calculation approach that does not have a coefficient for race that conforms to the NKF-ASN Task Force Recommendations. Performed By: #### 4 6449 ####[facility] [address] [place] [address] 51697 Glenn Gudino M.D. [id number] Phosphate [Mass/Vol] 3.1 mg/dL Normal 2.8-4.1 [facility] Comment on above: Order Comment: [facility] has implemented the eGFR calculation approach that does not have a coefficient for race that conforms to the NKF-ASN Task Force Recommendations. Performed By: #### 4 6449 ####[facility] [address] [place] [address] 99108 Glenn Gudino M.D. [id number] Potassium [Moles/Vol] 4.8 mmol/L Normal 3.5-5.1 [facility] Comment on above: Order Comment: [facility] has implemented the eGFR calculation approach that does not have a coefficient for race that conforms to the NKF-ASN Task Force Recommendations. Performed By: #### 4 6449 ####[facility] [address] [place] [address] 50963 Glenn Gudino M.D. [id number] Sodium [Moles/Vol] 134 mmol/L Low 135-145 [facility] Comment on above: Order Comment: [facility] has implemented the eGFR calculation approach that does not have a coefficient for race that conforms to the NKF-ASN Task Force Recommendations. Performed By: #### 4 6449 ####[facility] [address] [place] [address] 87154 Glenn Gudino M.D. [id number] Urea nitrogen [Mass/Vol] 34 mg/dL High 8-25 [facility] Comment on above: Order Comment: [facility] has implemented the eGFR calculation approach that does not have a coefficient for race that conforms to the NKF-ASN Task Force Recommendations. Performed By: #### 4 6449 ####[facility] [address] [place] [address]853 Glenn Gudino M.D. [id number] Urea nitrogen/Creatinine [Mass ratio] 14.4 mg/mg Normal 10.0-20.0 [facility] Comment on above: Order Comment: [facility] has implemented the eGFR calculation approach that does not have a coefficient for race that conforms to the NKF-ASN Task Force Recommendations. Performed By: #### 4 6449 ####[facility] [address] [place] [address]42[address] Glenn Gudino M.D. [id number] Albumin [Mass/Vol] 1.6 g/dL Low 3.2-5.2 [facility] Comment on above: Order Comment: [facility] has implemented the eGFR calculation approach that does not have a coefficient for race that conforms to the NKF-ASN Task Force Recommendations. Performed By: #### 4 6449 ####[facility] [address] [place] [address]237 Glenn Gudino M.D. [id number] Anion gap [Moles/Vol] 13 mmol/L Normal 10-20 [facility] Comment on above: Order Comment: [facility] has implemented the eGFR calculation approach that does not have a coefficient for race that conforms to the NKF-ASN Task Force Recommendations. Performed By: #### 4 6449 ####[facility] [address] [place] [address] 77936 Glenn Gudino M.D. [id number] Calcium [Mass/Vol] 7.9 mg/dL Low 8.4-10.2 [facility] Comment on above: Order Comment: [facility] has implemented the eGFR calculation approach that does not have a coefficient for race that conforms to the NKF-ASN Task Force Recommendations. Performed By: #### 4 6449 ####[facility] [address] [place] [address] 30991 Glenn Gudino M.D. [id number] Chloride [Moles/Vol] 104 mmol/L Normal 98-108 [facility] Comment on above: Order Comment: [facility] has implemented the eGFR calculation approach that does not have a coefficient for race that conforms to the NKF-ASN Task Force Recommendations. Performed By: #### 4 6449 ####[facility] [address] [place] [address] 78627 Glenn Gudino M.D. [id number] Creatinine [Mass/Vol] 2.07 mg/dL High 0.60-1.10 [facility] Comment on above: Order Comment: [facility] has implemented the eGFR calculation approach that does not have a coefficient for race that conforms to the NKF-ASN Task Force Recommendations. Performed By: #### 4 6449 ####[facility] [address] [place], [place] [address] Glenn Gudino M.D. [id number] EGFR 27 mL/min/1.73 m2 Low >=60 [facility] Comment on above: Order Comment: [facility] has implemented the eGFR calculation approach that does not have a coefficient for race that conforms to the NKF-ASN Task Force Recommendations. Result Comment: Joi mated GFR was calculated using the 2020 CKD-EPI creatinine equation. Performed By: #### 4 6449 ####[facility] [address] [place], [place] [address] Glenn Gudino M.D. [id number] Glucose [Mass/Vol] 120 mg/dL High 65-99 [facility] Comment on above: Order Comment: [facility] has implemented the eGFR calculation approach that does not have a coefficient for race that conforms to the NKF-ASN Task Force Recommendations. Performed By: #### 4 6449 ####[facility] [address] [place], [place] [id number] Glenn Gudino M.D. [id number] HCO3 (Bld) [Moles/Vol] 24 mmol/L Normal 21-32 [facility] Comment on above: Order Comment: [facility] has implemented the eGFR calculation approach that does not have a coefficient for race that conforms to the NKF-ASN Task Force Recommendations. Performed By: #### 4 6449 ####[facility] [address] [place], [place] [address] Glenn Gudino M.D. [id number] Phosphate [Mass/Vol] 3.2 mg/dL Normal 2.8-4.1 [facility] Comment on above: Order Comment: [facility] has implemented the eGFR calculation approach that does not have a coefficient for race that conforms to the NKF-ASN Task Force Recommendations. Performed By: #### 4 6449 ####[facility] [address] [place] [address] Glenn Gudino M.D. [id number] Potassium [Moles/Vol] 4.9 mmol/L Normal 3.5-5.1 [facility] Comment on above: Order Comment: [facility] has implemented the eGFR calculation approach that does not have a coefficient for race that conforms to the NKF-ASN Task Force Recommendations. Result Comment: Slig htly Hemolyzed Performed By: #### 4 6449 ####[facility] [address] [place], [place] [address] Glenn Gudino M.D. [id number] Sodium [Moles/Vol] 136 mmol/L Normal 135-145 [facility] Comment on above: Order Comment: [facility] has implemented the eGFR calculation approach that does not have a coefficient for race that conforms to the NKF-ASN Task Force Recommendations. Performed By: #### 4 6449 ####[facility] [address] [place], [place] [address] Glenn Gudino M.D. [id number] Urea nitrogen [Mass/Vol] 29 mg/dL High 8-25 [facility] Comment on above: Order Comment: [facility] has implemented the eGFR calculation approach that does not have a coefficient for race that conforms to the NKF-ASN Task Force Recommendations. Performed By: #### 4 6449 ####[facility] [address] [place], [place] [address] Glenn Gudino M.D. [id number] Urea nitrogen/Creatinine [Mass ratio] 14.0 mg/mg Normal 10.0-20.0 [facility] Comment on above: Order Comment: [facility] has implemented the eGFR calculation approach that does not have a coefficient for race that conforms to the NKF-ASN Task Force Recommendations. Performed By: #### 4 6449 ####[facility] [address] [place], [place] [address] Glenn Gudino M.D. [id number] Albumin [Mass/Vol] 1.6 g/dL Low 3.2-5.2 [facility] Comment on above: Order Comment: [facility] has implemented the eGFR calculation approach that does not have a coefficient for race that conforms to the NKF-ASN Task Force Recommendations. Performed By: #### 4 6449 ####[facility] [address] [place], [place] [address] Glenn Gudino M.D. [id number] Anion gap [Moles/Vol] 14 mmol/L Normal 10-20 [facility] Comment on above: Order Comment: [facility] has implemented the eGFR calculation approach that does not have a coefficient for race that conforms to the NKF-ASN Task Force Recommendations. Performed By: #### 4 6449 ####[facility] [address] [place], [place] [address] Glenn Gudino M.D. [id number] Calcium [Mass/Vol] 7.4 mg/dL Low 8.4-10.2 [facility] Comment on above: Order Comment: [facility] has implemented the eGFR calculation approach that does not have a coefficient for race that conforms to the NKF-ASN Task Force Recommendations. Performed By: #### 4 6449 ####[facility] [address] [place], [place] [address] Glenn Gudino M.D. [id number] Chloride [Moles/Vol] 105 mmol/L Normal 98-108 [facility] Comment on above: Order Comment: [facility] has implemented the eGFR calculation approach that does not have a coefficient for race that conforms to the NKF-ASN Task Force Recommendations. Performed By: #### 4 6449 ####[facility] [address] [place] [address] 08693 Glenn Gudino M.D. [id number] Creatinine [Mass/Vol] 1.94 mg/dL High 0.60-1.10 [facility] Comment on above: Order Comment: [facility] has implemented the eGFR calculation approach that does not have a coefficient for race that conforms to the NKF-ASN Task Force Recommendations. Performed By: #### 4 6449 ####[facility] [address] [place] [address] 80460 Glenn Gudino M.D. [id number] EGFR 29 mL/min/1.73 m2 Low >=60 [facility] Comment on above: Order Comment: [facility] has implemented the eGFR calculation approach that does not have a coefficient for race that conforms to the NKF-ASN Task Force Recommendations. Result Comment: Joi mated GFR was calculated using the 2020 CKD-EPI creatinine equation. Performed By: #### 4 6449 ####[facility] [address] [place] [address] 82127 Glenn Gudino M.D. [id number] Glucose [Mass/Vol] 125 mg/dL High 65-99 [facility] Comment on above: Order Comment: [facility] has implemented the eGFR calculation approach that does not have a coefficient for race that conforms to the NKF-ASN Task Force Recommendations. Performed By: #### 4 6449 ####[facility] [address] [place] [address] 61304 Glenn Gudino M.D. [id number] HCO3 (Bld) [Moles/Vol] 24 mmol/L Normal 21-32 [facility] Comment on above: Order Comment: [facility] has implemented the eGFR calculation approach that does not have a coefficient for race that conforms to the NKF-ASN Task Force Recommendations. Performed By: #### 4 6449 ####[facility] [address] [place] [address] 39271 Glenn Gudino M.D. [id number] Phosphate [Mass/Vol] 3.5 mg/dL Normal 2.8-4.1 [facility] Comment on above: Order Comment: [facility] has implemented the eGFR calculation approach that does not have a coefficient for race that conforms to the NKF-ASN Task Force Recommendations. Performed By: #### 4 6449 ####[facility] [address] [place], [place] [address] Glenn Gudino M.D. [id number] Potassium [Moles/Vol] 5.2 mmol/L High 3.5-5.1 [facility] Comment on above: Order Comment: [facility] has implemented the eGFR calculation approach that does not have a coefficient for race that conforms to the NKF-ASN Task Force Recommendations. Result Comment: Slig htly Hemolyzed Performed By: #### 4 6449 ####[facility] [address] [place] [address] 14715 Glenn Gudino M.D. [id number] Sodium [Moles/Vol] 138 mmol/L Normal 135-145 [facility] Comment on above: Order Comment: [facility] has implemented the eGFR calculation approach that does not have a coefficient for race that conforms to the NKF-ASN Task Force Recommendations. Performed By: #### 4 6449 ####[facility] [address] [place] [address] 53584 Glenn Gudino M.D. [id number] Urea nitrogen [Mass/Vol] 29 mg/dL High 8-25 [facility] Comment on above: Order Comment: [facility] has implemented the eGFR calculation approach that does not have a coefficient for race that conforms to the NKF-ASN Task Force Recommendations. Performed By: #### 4 6449 ####[facility] [address] [place] [address] 73411 Glenn Gudino M.D. [id number] Urea nitrogen/Creatinine [Mass ratio] 14.9 mg/mg Normal 10.0-20.0 [facility] Comment on above: Order Comment: [facility] has implemented the eGFR calculation approach that does not have a coefficient for race that conforms to the NKF-ASN Task Force Recommendations. Performed By: #### 4 6449 ####[facility] [address] [place] [address] Glenn Gudino M.D. [id number] RETICULOCYTEon 01-28-2024 IMMATURE RETIC FRACT 21.2 % High 2.3-15.9 [facility] Comment on above: Performed By: #### 4 6452 ####[facility] [address] [place], [place] [address] Glenn Gudino M.D. [id number] RETIC HGB EQUIVALENT 24.7 PG Low 27.7-38.2 [facility] Comment on above: Result Comment: The cut-off for RET-He established in our institution is 27.7-38.2 pg/RBC. A value below this range is highly suggestive of iron deficiency. At values above 38.2 pg/RBC, patients are unlikely to respond to additional iron therapy. Performed By: #### 4 6452 ####[facility] [address] [place] [address] 90085 Glenn Gudino M.D. [id number] RETICULOCYTE ABSOLUTE COUNT 0.055 M/mcL Normal 0.025-0.07 0 [facility] Comment on above: Performed By: #### 4 6452 ####[facility] [address] [place], [place] [address] Glenn Gudino M.D. [id number] RETICULOCYTE COUNT PCT 2.3 % Normal [facility] Comment on above: Performed By: #### 4 6452 ####[facility] [address] [place] [address] 69444 Glenn Gudino M.D. [id number] TRIGLYCERIDESon 01-28-2024 Triglyceride [Mass/Vol] 95 mg/dL Normal 30-150 [facility] Comment on above: Result Comment: [facility] Cholesterol Education Program Guidelines: TriglycerideNormal: <150 mg/dLBorderline High: 150-199 mg/dLHigh: 200-499 mg/dLVery High: greater than or equal to 500 mg/dL Performed By: #### 4 6606 ####[facility] [address] [place] [address] Glenn Gudino M.D. [id number] TRIGLYCERIDES, BODY FLUIDSon 01-28-2024 TRIGLYCERIDES FLUID 333 mg/dL [facility] Comment on above: Order Comment: No es tablished reference range. Performed By: #### 4 7057 ####[facility] [address] [place] [address] Glenn Gudino M.D. [id number] TYPE AND SCREENon 01-28-2024 TYPE AND SCREEN ABORH: O Positive AB SCREEN: Positive EXPIRATION DATE: 01/31/2024 23:59 EST [facility] Comment on above: Performed By: #### 4 6619 ####PENDING SALE TO [facility] [address] [place] [address] Nurys Oneill MD [id number] RMHTS XR ABDOMEN /KUB/FLAT PLATE/1 VIEWon 01-28-2024 XR ABDOMEN /KUB/FLAT PLATE/1 VIEW [facility] Comment on above: Order Comment: Injur y/Trauma or Illness?:Illness/OtherHow long have you had these symptoms (acute/chronic)?:UnknownReason for exam?:small bore manipulatedHistory of cancer?:uSurgeries, chemotherapy, or radiation?:uType of Exam?:UnknownAdditional signs and symptoms?:small bore manipulated XR ABDOMEN /KUB/FLAT PLATE/1 VIEW [facility] Comment on above: Order Comment: Injur y/Trauma or Illness?:Illness/OtherHow long have you had these symptoms (acute/chronic)?:UnknownReason for exam?:small bore NGHistory of cancer?:uSurgeries, chemotherapy, or radiation?:uType of Exam?:UnknownAdditional signs and symptoms?:small bore NG XR CHEST PA/APon 01-28-2024 XR CHEST PA/AP Normal [facility] Comment on above: Order Comment: Injur y/Trauma or Illness?:Illness/OtherHow long have you had these symptoms (acute/chronic)?:AcuteReason for exam?:ct/ptxHistory of cancer?:uSurgeries, chemotherapy, or radiation?:uType of Exam?:OngoingAdditional signs and symptoms?:- APTTon 01-27-2024 aPTT Coag (Bld) [Time] 60 s High 23-34 [facility] Comment on above: Order Comment: Thera peutic range for APTT's is 68 - 104 seconds Result Comment: Resu lts checked. Performed By: #### 4 5113 ####[facility] [address] [place] [address] Glenn Gudino M.D. [id number] APTT HEPARIN COVERAGEon 12-29 aPTT Coag (Bld) [Time] 86 s High 23-34 [facility] Comment on above: Order Comment: Thera peutic range for APTT's is 68 - 104 seconds Result Comment: Resu lts checked. Performed By: #### 4 6848 ####[facility] [address] [place] [address] Glenn Gudino M.D. [id number] aPTT Coag (Bld) [Time] 67 s High 23-34 [facility] Comment on above: Order Comment: Thera peutic range for APTT's is 68 - 104 seconds Performed By: #### 4 6871 ####[facility] [address] [place] [address] Glenn Gudino M.D. [id number] aPTT Coag (Bld) [Time] 71 s High 23-34 [facility] Comment on above: Order Comment: Thera peutic range for APTT's is 68 - 104 seconds Performed By: #### 4 6848 ####[facility] [address] [place], [place] [address] Glenn Gudino M.D. [id number] BASIC METABOLIC PANELon 08-3 Anion gap [Moles/Vol] 14 mmol/L Normal 10-20 [facility] Comment on above: Order Comment: [facility] has implemented the eGFR calculation approach that does not have a coefficient for race that conforms to the NKF-ASN Task Force Recommendations. Performed By: #### 4 6124 ####[facility] [address] [place], [place] [address] Glenn Gudino M.D. [id number] Calcium [Mass/Vol] 7.9 mg/dL Low 8.4-10.2 [facility] Comment on above: Order Comment: [facility] has implemented the eGFR calculation approach that does not have a coefficient for race that conforms to the NKF-ASN Task Force Recommendations. Performed By: #### 4 6124 ####[facility] [address] [place], [place] [address] Glenn Gudino M.D. [id number] Chloride [Moles/Vol] 103 mmol/L Normal 98-108 [facility] Comment on above: Order Comment: [facility] has implemented the eGFR calculation approach that does not have a coefficient for race that conforms to the NKF-ASN Task Force Recommendations. Performed By: #### 4 6124 ####[facility] [address] [place] [address] 96795 Glenn Gudino M.D. [id number] Creatinine [Mass/Vol] 2.21 mg/dL High 0.60-1.10 [facility] Comment on above: Order Comment: [facility] has implemented the eGFR calculation approach that does not have a coefficient for race that conforms to the NKF-ASN Task Force Recommendations. Performed By: #### 4 6124 ####[facility] [address] [place] [address] 38182 Glenn Gudino M.D. [id number] EGFR 25 mL/min/1.73 m2 Low >=60 [facility] Comment on above: Order Comment: [facility] has implemented the eGFR calculation approach that does not have a coefficient for race that conforms to the NKF-ASN Task Force Recommendations. Result Comment: Joi mated GFR was calculated using the 2020 CKD-EPI creatinine equation. Performed By: #### 4 6124 ####[facility] [address] [place] [address] 83209 Glenn Gudino M.D. [id number] Glucose [Mass/Vol] 145 mg/dL High 65-99 [facility] Comment on above: Order Comment: [facility] has implemented the eGFR calculation approach that does not have a coefficient for race that conforms to the NKF-ASN Task Force Recommendations. Performed By: #### 4 6124 ####[facility] [address] [place] [address] 39764 Glenn Gudino M.D. [id number] HCO3 (Bld) [Moles/Vol] 24 mmol/L Normal 21-32 [facility] Comment on above: Order Comment: [facility] has implemented the eGFR calculation approach that does not have a coefficient for race that conforms to the NKF-ASN Task Force Recommendations. Performed By: #### 4 6124 ####[facility] [address] [place] [address] 61963 Glenn Gudino M.D. [id number] Potassium [Moles/Vol] 4.7 mmol/L Normal 3.5-5.1 [facility] Comment on above: Order Comment: [facility] has implemented the eGFR calculation approach that does not have a coefficient for race that conforms to the NKF-ASN Task Force Recommendations. Performed By: #### 4 6124 ####[facility] [address] [place] [address] 21964 Glenn Gudino M.D. [id number] Sodium [Moles/Vol] 136 mmol/L Normal 135-145 [facility] Comment on above: Order Comment: [facility] has implemented the eGFR calculation approach that does not have a coefficient for race that conforms to the NKF-ASN Task Force Recommendations. Performed By: #### 4 6124 ####[facility] [address] [place] [address] 24945 Glenn Gudino M.D. [id number] Urea nitrogen [Mass/Vol] 30 mg/dL High 8-25 [facility] Comment on above: Order Comment: [facility] has implemented the eGFR calculation approach that does not have a coefficient for race that conforms to the NKF-ASN Task Force Recommendations. Performed By: #### 4 6124 ####[facility] [address] [place], [place] [address] Glenn Gudino M.D. [id number] Urea nitrogen/Creatinine [Mass ratio] 13.6 mg/mg Normal 10.0-20.0 [facility] Comment on above: Order Comment: [facility] has implemented the eGFR calculation approach that does not have a coefficient for race that conforms to the NKF-ASN Task Force Recommendations. Performed By: #### 4 6124 ####[facility] [address] [place] [address] 03008 Glenn Gudino M.D. [id number] Anion gap [Moles/Vol] 18 mmol/L Normal 10-20 [facility] Comment on above: Order Comment: [facility] has implemented the eGFR calculation approach that does not have a coefficient for race that conforms to the NKF-ASN Task Force Recommendations. Performed By: #### 4 6124 ####[facility] [address] [place], [place] [address] Glenn Gudino M.D. [id number] Calcium [Mass/Vol] 7.4 mg/dL Low 8.4-10.2 [facility] Comment on above: Order Comment: [facility] has implemented the eGFR calculation approach that does not have a coefficient for race that conforms to the NKF-ASN Task Force Recommendations. Performed By: #### 4 6124 ####[facility] [address] [place], [place] [address] Glenn Gudino M.D. [id number] Chloride [Moles/Vol] 104 mmol/L Normal 98-108 [facility] Comment on above: Order Comment: [facility] has implemented the eGFR calculation approach that does not have a coefficient for race that conforms to the NKF-ASN Task Force Recommendations. Performed By: #### 4 6124 ####[facility] [address] [place], [place] [address] Glenn Gudino M.D. [id number] Creatinine [Mass/Vol] 2.71 mg/dL High 0.60-1.10 [facility] Comment on above: Order Comment: [facility] has implemented the eGFR calculation approach that does not have a coefficient for race that conforms to the NKF-ASN Task Force Recommendations. Performed By: #### 4 6124 ####[facility] [address] [place] [address] 74871 Glenn Gudino M.D. [id number] EGFR 19 mL/min/1.73 m2 Low >=60 [facility] Comment on above: Order Comment: [facility] has implemented the eGFR calculation approach that does not have a coefficient for race that conforms to the NKF-ASN Task Force Recommendations. Result Comment: Joi mated GFR was calculated using the 2020 CKD-EPI creatinine equation. Performed By: #### 4 6124 ####[facility] [address] [place] [address] 61658 Glenn Gudino M.D. [id number] Glucose [Mass/Vol] 89 mg/dL Normal 65-99 [facility] Comment on above: Order Comment: [facility] has implemented the eGFR calculation approach that does not have a coefficient for race that conforms to the NKF-ASN Task Force Recommendations. Performed By: #### 4 6124 ####[facility] [address] [place] [address] 20664 Glenn Gudino M.D. [id number] HCO3 (Bld) [Moles/Vol] 22 mmol/L Normal 21-32 [facility] Comment on above: Order Comment: [facility] has implemented the eGFR calculation approach that does not have a coefficient for race that conforms to the NKF-ASN Task Force Recommendations. Performed By: #### 4 6124 ####[facility] [address] [place] [address] 71963 Glenn Gudino M.D. [id number] Potassium [Moles/Vol] 5.0 mmol/L Normal 3.5-5.1 [facility] Comment on above: Order Comment: [facility] has implemented the eGFR calculation approach that does not have a coefficient for race that conforms to the NKF-ASN Task Force Recommendations. Performed By: #### 4 6124 ####[facility] [address] [place] [address] 06560 Glenn Gudino M.D. [id number] Sodium [Moles/Vol] 139 mmol/L Normal 135-145 [facility] Comment on above: Order Comment: [facility] has implemented the eGFR calculation approach that does not have a coefficient for race that conforms to the NKF-ASN Task Force Recommendations. Performed By: #### 4 6124 ####[facility] [address] [place] [address] 29243 Glenn Gudino M.D. [id number] Urea nitrogen [Mass/Vol] 37 mg/dL High 8-25 [facility] Comment on above: Order Comment: [facility] has implemented the eGFR calculation approach that does not have a coefficient for race that conforms to the NKF-ASN Task Force Recommendations. Performed By: #### 4 6124 ####[facility] [address] [place] [address] 32263 Glenn Gudino M.D. [id number] Urea nitrogen/Creatinine [Mass ratio] 13.7 mg/mg Normal 10.0-20.0 [facility] Comment on above: Order Comment: [facility] has implemented the eGFR calculation approach that does not have a coefficient for race that conforms to the NKF-ASN Task Force Recommendations. Performed By: #### 4 6124 ####[facility] [address] [place], [place] [id number] Glenn Gudino M.D. [id number] CALCIUM, IONIZEDon 4 CALCIUM IONIZED 4.6 mg/dL Normal 4.5-5.3 [facility] Comment on above: Order Comment: Serum , non-CRRT source. Performed By: #### 4 5190 ####[facility] [address] [place], [place] [address] Glenn Gudino M.D. [id number] CALCIUM IONIZED 4.4 mg/dL Low 4.5-5.3 [facility] Comment on above: Order Comment: Serum , non-CRRT source. Performed By: #### 4 5190 ####[facility] [address] [place], [place] [address] Glenn Gudino M.D. [id number] CALCIUM IONIZED 4.4 mg/dL Low 4.5-5.3 [facility] Comment on above: Order Comment: Serum , non-CRRT source. Performed By: #### 4 5190 ####[facility] [address] [place], [place] [address] Glenn Gudino M.D. [id number] CALCIUM IONIZED 4.4 mg/dL Low 4.5-5.3 [facility] Comment on above: Order Comment: Serum , non-CRRT source. Performed By: #### 4 5190 ####[facility] [address] [place], [place] [address] Glenn Gudino M.D. [id number] CBCon 01-27-2024 AUTO NRBC 0.0 % Normal [facility] Comment on above: Performed By: #### 4 5218 ####[facility] [address] [place] [address] Glenn Gudino M.D. [id number] AUTO NRBC ABS COUNT 0.00 K/mcL Normal 0.00-0.00 [facility] Comment on above: Performed By: #### 4 [id number] ####[facility] [address] [place] [address] Glenn Gudino M.D. [id number] Erythrocyte distribution width (RBC) [Ratio] 16.9 % High 11.6-14.8 [facility] Comment on above: Performed By: #### 4 5218 ####[facility] [address] [place], [place] [address] Glenn Gudino M.D. [id number] Hematocrit (Bld) [Volume fraction] 29.2 % Low 36.0-46.0 [facility] Comment on above: Performed By: #### 4 5218 ####[facility] [address] [place], [place] [address] Glenn Gudino M.D. [id number] Hemoglobin (Bld) [Mass/Vol] 9.7 g/dL Low 12.0-16.0 [facility] Comment on above: Performed By: #### 4 5718 ####[facility] [address] [place], [place] [address] Glenn Gudino M.D. [id number] MCH (RBC) [Entitic mass] 29.5 pg Normal 26.0-34.0 [facility] Comment on above: Performed By: #### 4 0418 ####[facility] [address] [place] [address] 44711 Glenn Gudino M.D. [id number] MCV (RBC) [Entitic vol] 88.8 fL Normal 80.0-100.0 [facility] Comment on above: Performed By: #### 4 [id number] ####[facility] [address] [place], [place] [address] Glenn Gudino M.D. [id number] MEAN CORPUSCULAR HEMOGLOBIN CONC 33.2 g/dL Normal 31.0-37.0 [facility] Comment on above: Performed By: #### 4 5218 ####[facility] [address] [place], [place] [address] Glenn Gudino M.D. [id number] Platelet mean volume (Bld) [Entitic vol] 11.3 fL Normal 9.4-12.4 [facility] Comment on above: Performed By: #### 4 [id number] ####[facility] [address] [place], [place] [address] Glenn Gudino M.D. [id number] Platelets (Bld) [#/Vol] 106 10*3/uL Low 150-400 [facility] Comment on above: Result Comment: Repe ated verified Performed By: #### 4 [id number] ####[facility] [address] [place], [place] [address] Glenn Gudino M.D. [id number] RBC (Bld) [#/Vol] 3.29 10*6/uL Low 4.00-5.20 [facility] Comment on above: Performed By: #### 4 5218 ####[facility] [address] [place], [place] [address] Glenn Gudino M.D. [id number] WBC (Bld) [#/Vol] 17.82 10*3/uL High 4.50-11.00 [facility] Comment on above: Performed By: #### 4 5218 ####[facility] [address] [place] [address] Glenn Gudino M.D. [id number] MAGNESIUM LEVELon 01-27-2024 Magnesium [Mass/Vol] 2.2 mg/dL Normal 1.6-2.4 [facility] Comment on above: Performed By: #### 4 6109 ####[facility] [address] [place] [address] Glenn Gudino M.D. [id number] Magnesium [Mass/Vol] 2.2 mg/dL Normal 1.6-2.4 [facility] Comment on above: Performed By: #### 4 6109 ####[facility] [address] [place] [address] Glenn Gudino M.D. [id number] Magnesium [Mass/Vol] 2.1 mg/dL Normal 1.6-2.4 [facility] Comment on above: Performed By: #### 4 6109 ####[facility] [address] [place] [address] Glenn Gudino M.D. [id number] Magnesium [Mass/Vol] 2.2 mg/dL Normal 1.6-2.4 [facility] Comment on above: Performed By: #### 4 6109 ####[facility] [address] [place] [address] Glenn Gudino M.D. [id number] POC ARTERIAL BLOOD GAS PANEL -[facility] 01-27-2024 BASE EXCESS, ARTERIAL -0.1 Normal -2.0-2.0 [facility] Comment on above: Performed By: #### 4 8716 ####[facility]END[facility] TO [facility] [address] [place] [address] [id number] [facility] CALCIUM IONIZED 4.4 mg/dL Low 4.5-5.3 [facility] Comment on above: Performed By: #### 4 8716 ####[facility] [address] [place] [address] [id number] [facility] CARBOXYHEMOGLOBIN 2.0 % of total Hb High <=1.5 [facility] Comment on above: Result Comment: [facility]fe [facility]ce [facility] Non-smokers: <1.5%Smokers: 1.5-5.0%Heavy Smokers: 5.0-9.0% Performed By: #### 4 8716 ####[facility] [address] [place] [address] [id number] [facility] Chloride [Moles/Vol] 103 mmol/L Normal 98-108 [facility] Comment on above: Performed By: #### 4 8716 ####[facility] [address] [place] [address] [id number] [facility] Glucose [Mass/Vol] 88 mg/dL Normal 65-99 [facility] Comment on above: Performed By: #### 4 8716 ####[facility] [address] [place] [address] [id number] [facility] HCO3 (Bld) [Moles/Vol] 24.5 mmol/L Normal 22.0-26.0 [facility] Comment on above: Performed By: #### 4 8716 ####[facility] [address] [place] [address] [id number] [facility] Hematocrit (Bld) [Volume fraction] 29.9 % Low 36.0-46.0 [facility] Comment on above: Performed By: #### 4 8716 ####[facility] [address] [place] [address] [id number] [facility] Hemoglobin (Bld) [Mass/Vol] 9.8 g/dL Low 12.0-16.0 [facility] Comment on above: Performed By: #### 4 8716 ####[facility] [address] [place] [address] [id number] [facility] LACTIC ACID, WHOLE BLOOD 1.1 mmol/L Normal 0.6-2.0 [facility] Comment on above: Performed By: #### 4 8716 ####[facility] [address] [place] [address] [id number] [facility] LITER FLOW 3 Normal [facility] Comment on above: Performed By: #### 4 8716 ####[facility] [address] [place] [address] [id number] [facility] METHEMOGLOBIN < Normal 0.0-2.0 [facility] Comment on above: Performed By: #### 4 8716 ####[facility] [address] [place] [address] [id number] [facility] O2HB 92.7 % Low 94.0-98.0 [facility] Comment on above: Performed By: #### 4 8716 ####[facility] [address] [place] [address] [id number] [facility] Oxygen saturation in Blood 94.8 % Normal 92.0-99.0 [facility] Comment on above: Performed By: #### 4 3616 ####[facility] [address] [place] [address] [id number] [facility] PCO2 ARTERIAL 39.0 mm Hg Normal 35.0-45.0 [facility] Comment on above: Performed By: #### 4 8316 ####[facility] [address] [place] [address] [id number] [facility] PH ARTERIAL 7.41 Normal 7.35-7.45 [facility] Comment on above: Performed By: #### 4 9616 ####[facility] [address] [place] [address] [id number] [facility] PO2 ARTERIAL 72 mm Hg Low 80-100 [facility] Comment on above: Performed By: #### 4 4982 ####[facility] [address] [place] [address] [id number] [facility] Potassium [Moles/Vol] 4.6 mmol/L Normal 3.5-5.1 [facility] Comment on above: Performed By: #### 4 8716 ####[facility] [address] [place] [address] [id number] [facility] Sodium [Moles/Vol] 134 mmol/L Low 135-145 [facility] Comment on above: Performed By: #### 4 8716 ####[facility] [address] [place] [address] [id number] [facility] POC GLUCOSE [facility] 024 Glucose [Mass/Vol] 111 mg/dL High 65-99 [facility] Comment on above: Performed By: #### 4 9215 ####[facility] [address] [place] [address] [id number] [facility] Glucose [Mass/Vol] 155 mg/dL High 65-99 [facility] Comment on above: Performed By: #### 4 8772 ####[facility] [address] [place] [address] [id number] [facility] Glucose [Mass/Vol] 132 mg/dL High 65-99 [facility] Comment on above: Performed By: #### 4 6613 ####[facility] [address] [place] [address] [id number] [facility] Glucose [Mass/Vol] 114 mg/dL High 65-99 [facility] Comment on above: Performed By: #### 4 0006 ####[facility] [address] [place] [address] [id number] [facility] Glucose [Mass/Vol] 109 mg/dL High 65-99 [facility] Comment on above: Performed By: #### 4 3849 ####[facility] [address] [place] [address] [id number] [facility] Glucose [Mass/Vol] 96 mg/dL Normal 65-99 [facility] Comment on above: Performed By: #### 4 7669 ####[facility] [address] [place] [address] [id number] [facility] Glucose [Mass/Vol] 71 mg/dL Normal 65-99 [facility] Comment on above: Performed By: #### 4 6932 ####[facility]END[facility] [address] [place] [address] [id number] [facility] RENAL FUNCTION PANELon 01-26 Albumin [Mass/Vol] 1.6 g/dL Low 3.2-5.2 [facility] Comment on above: Order Comment: [facility] has implemented the eGFR calculation approach that does not have a coefficient for race that conforms to the NKF-ASN Task Force Recommendations. Performed By: #### 4 6449 ####[facility] [address] [place], [place] [address] Glenn Gudino M.D. [id number] Anion gap [Moles/Vol] 13 mmol/L Normal 10-20 [facility] Comment on above: Order Comment: [facility] has implemented the eGFR calculation approach that does not have a coefficient for race that conforms to the NKF-ASN Task Force Recommendations. Performed By: #### 4 6449 ####[facility] [address] [place], [place] [address] Glenn Gudino M.D. [id number] Calcium [Mass/Vol] 7.7 mg/dL Low 8.4-10.2 [facility] Comment on above: Order Comment: [facility] has implemented the eGFR calculation approach that does not have a coefficient for race that conforms to the NKF-ASN Task Force Recommendations. Performed By: #### 4 6449 ####[facility] [address] [place] [address] Glenn Gudino M.D. [id number] Chloride [Moles/Vol] 103 mmol/L Normal 98-108 [facility] Comment on above: Order Comment: [facility] has implemented the eGFR calculation approach that does not have a coefficient for race that conforms to the NKF-ASN Task Force Recommendations. Performed By: #### 4 6449 ####[facility] [address] [place] [address] 25374 Glenn Gudino M.D. [id number] Creatinine [Mass/Vol] 2.09 mg/dL High 0.60-1.10 [facility] Comment on above: Order Comment: [facility] has implemented the eGFR calculation approach that does not have a coefficient for race that conforms to the NKF-ASN Task Force Recommendations. Performed By: #### 4 6449 ####[facility] [address] [place] [address] 60961 Glenn Gudino M.D. [id number] EGFR 27 mL/min/1.73 m2 Low >=60 [facility] Comment on above: Order Comment: [facility] has implemented the eGFR calculation approach that does not have a coefficient for race that conforms to the NKF-ASN Task Force Recommendations. Result Comment: Joi mated GFR was calculated using the 2020 CKD-EPI creatinine equation. Performed By: #### 4 6449 ####[facility] [address] [place] [address] 49927 Glenn Gudino M.D. [id number] Glucose [Mass/Vol] 121 mg/dL High 65-99 [facility] Comment on above: Order Comment: [facility] has implemented the eGFR calculation approach that does not have a coefficient for race that conforms to the NKF-ASN Task Force Recommendations. Performed By: #### 4 6449 ####[facility] [address] [place] [address] 67[address] Glenn Gudino M.D. [id number] HCO3 (Bld) [Moles/Vol] 24 mmol/L Normal 21-32 [facility] Comment on above: Order Comment: [facility] has implemented the eGFR calculation approach that does not have a coefficient for race that conforms to the NKF-ASN Task Force Recommendations. Performed By: #### 4 6449 ####[facility] [address] [place] [address] 67935 Glenn Gudino M.D. [id number] Phosphate [Mass/Vol] 4.0 mg/dL Normal 2.8-4.1 [facility] Comment on above: Order Comment: [facility] has implemented the eGFR calculation approach that does not have a coefficient for race that conforms to the NKF-ASN Task Force Recommendations. Performed By: #### 4 6449 ####[facility] [address] [place], [place] [address] Glenn Gudino M.D. [id number] Potassium [Moles/Vol] 4.7 mmol/L Normal 3.5-5.1 [facility] Comment on above: Order Comment: [facility] has implemented the eGFR calculation approach that does not have a coefficient for race that conforms to the NKF-ASN Task Force Recommendations. Performed By: #### 4 6449 ####[facility] [address] [place], [place] [address] Glenn Gudino M.D. [id number] Sodium [Moles/Vol] 135 mmol/L Normal 135-145 [facility] Comment on above: Order Comment: [facility] has implemented the eGFR calculation approach that does not have a coefficient for race that conforms to the NKF-ASN Task Force Recommendations. Performed By: #### 4 6449 ####[facility] [address] [place] [address] 84566 Glenn Gudino M.D. [id number] Urea nitrogen [Mass/Vol] 29 mg/dL High 8-25 [facility] Comment on above: Order Comment: [facility] has implemented the eGFR calculation approach that does not have a coefficient for race that conforms to the NKF-ASN Task Force Recommendations. Performed By: #### 4 6449 ####[facility] [address] [place] [address] 20658 Glenn Gudino M.D. [id number] Urea nitrogen/Creatinine [Mass ratio] 13.9 mg/mg Normal 10.0-20.0 [facility] Comment on above: Order Comment: [facility] has implemented the eGFR calculation approach that does not have a coefficient for race that conforms to the NKF-ASN Task Force Recommendations. Performed By: #### 4 6449 ####[facility] [address] [place], [place] [address] Glenn Gudino M.D. [id number] Albumin [Mass/Vol] 1.7 g/dL Low 3.2-5.2 [facility] Comment on above: Order Comment: [facility] has implemented the eGFR calculation approach that does not have a coefficient for race that conforms to the NKF-ASN Task Force Recommendations. Performed By: #### 4 6449 ####[facility] [address] [place], [place] [address] Glenn Gudino M.D. [id number] Anion gap [Moles/Vol] 15 mmol/L Normal 10-20 [facility] Comment on above: Order Comment: [facility] has implemented the eGFR calculation approach that does not have a coefficient for race that conforms to the NKF-ASN Task Force Recommendations. Performed By: #### 4 6449 ####[facility] [address] [place], [place] [address] Glenn Gudino M.D. [id number] Calcium [Mass/Vol] 7.7 mg/dL Low 8.4-10.2 [facility] Comment on above: Order Comment: [facility] has implemented the eGFR calculation approach that does not have a coefficient for race that conforms to the NKF-ASN Task Force Recommendations. Performed By: #### 4 6449 ####[facility] [address] [place], [place] [address] Glenn Gudino M.D. [id number] Chloride [Moles/Vol] 103 mmol/L Normal 98-108 [facility] Comment on above: Order Comment: [facility] has implemented the eGFR calculation approach that does not have a coefficient for race that conforms to the NKF-ASN Task Force Recommendations. Performed By: #### 4 6449 ####[facility] [address] [place] [address]329 Glenn Gudino M.D. [id number] Creatinine [Mass/Vol] 2.25 mg/dL High 0.60-1.10 [facility] Comment on above: Order Comment: [facility] has implemented the eGFR calculation approach that does not have a coefficient for race that conforms to the NKF-ASN Task Force Recommendations. Performed By: #### 4 6449 ####[facility] [address] [place] [address]137 Glenn Gudino M.D. [id number] EGFR 24 mL/min/1.73 m2 Low >=60 [facility] Comment on above: Order Comment: [facility] has implemented the eGFR calculation approach that does not have a coefficient for race that conforms to the NKF-ASN Task Force Recommendations. Result Comment: Joi mated GFR was calculated using the 2020 CKD-EPI creatinine equation. Performed By: #### 4 6449 ####[facility] [address] [place] [address]3417 Glenn Gudino M.D. [id number] Glucose [Mass/Vol] 122 mg/dL High 65-99 [facility] Comment on above: Order Comment: [facility] has implemented the eGFR calculation approach that does not have a coefficient for race that conforms to the NKF-ASN Task Force Recommendations. Performed By: #### 4 6449 ####[facility] [address] [place] [address] 278[address] Glenn Gudino M.D. [id number] HCO3 (Bld) [Moles/Vol] 24 mmol/L Normal 21-32 [facility] Comment on above: Order Comment: [facility] has implemented the eGFR calculation approach that does not have a coefficient for race that conforms to the NKF-ASN Task Force Recommendations. Performed By: #### 4 6449 ####[facility] [address] [place] [address] 79746 Glenn Gudino M.D. [id number] Phosphate [Mass/Vol] 4.7 mg/dL High 2.8-4.1 [facility] Comment on above: Order Comment: [facility] has implemented the eGFR calculation approach that does not have a coefficient for race that conforms to the NKF-ASN Task Force Recommendations. Performed By: #### 4 6449 ####[facility] [address] [place] [address] 70094 Glenn Gudino M.D. [id number] Potassium [Moles/Vol] 5.0 mmol/L Normal 3.5-5.1 [facility] Comment on above: Order Comment: [facility] has implemented the eGFR calculation approach that does not have a coefficient for race that conforms to the NKF-ASN Task Force Recommendations. Performed By: #### 4 6449 ####[facility] [address] [place] [address]24 Glenn Gudino M.D. [id number] Sodium [Moles/Vol] 137 mmol/L Normal 135-145 [facility] Comment on above: Order Comment: [facility] has implemented the eGFR calculation approach that does not have a coefficient for race that conforms to the NKF-ASN Task Force Recommendations. Performed By: #### 4 6449 ####[facility] [address] [place] [address] 71826 Glenn Gudino M.D. [id number] Urea nitrogen [Mass/Vol] 30 mg/dL High 8-25 [facility] Comment on above: Order Comment: [facility] has implemented the eGFR calculation approach that does not have a coefficient for race that conforms to the NKF-ASN Task Force Recommendations. Performed By: #### 4 6449 ####[facility] [address] [place] [address] 70067 Glenn Gudino M.D. [id number] Urea nitrogen/Creatinine [Mass ratio] 13.3 mg/mg Normal 10.0-20.0 [facility] Comment on above: Order Comment: [facility] has implemented the eGFR calculation approach that does not have a coefficient for race that conforms to the NKF-ASN Task Force Recommendations. Performed By: #### 4 6449 ####[facility] [address] [place], [place] [address] Glenn Gudino M.D. [id number] Albumin [Mass/Vol] 1.8 g/dL Low 3.2-5.2 [facility] Comment on above: Order Comment: [facility] has implemented the eGFR calculation approach that does not have a coefficient for race that conforms to the NKF-ASN Task Force Recommendations. Performed By: #### 4 6449 ####[facility] [address] [place], [place] [address] Glenn Gudino M.D. [id number] Anion gap [Moles/Vol] 15 mmol/L Normal 10-[address] [facility] Comment on above: Order Comment: [facility] has implemented the eGFR calculation approach that does not have a coefficient for race that conforms to the NKF-ASN Task Force Recommendations. Performed By: #### 4 6449 ####[facility] [address] [place] [address] 22728 Glenn Gudino M.D. [id number] Calcium [Mass/Vol] 7.7 mg/dL Low 8.4-10.2 [facility] Comment on above: Order Comment: [facility] has implemented the eGFR calculation approach that does not have a coefficient for race that conforms to the NKF-ASN Task Force Recommendations. Performed By: #### 4 6449 ####[facility] [address] [place] [address] 00514 Glenn Gudino M.D. [id number] Chloride [Moles/Vol] 102 mmol/L Normal 98-108 [facility] Comment on above: Order Comment: [facility] has implemented the eGFR calculation approach that does not have a coefficient for race that conforms to the NKF-ASN Task Force Recommendations. Performed By: #### 4 6449 ####[facility] [address] [place] [address] 07453 Glenn Gudino M.D. [id number] Creatinine [Mass/Vol] 2.42 mg/dL High 0.60-1.10 [facility] Comment on above: Order Comment: [facility] has implemented the eGFR calculation approach that does not have a coefficient for race that conforms to the NKF-ASN Task Force Recommendations. Performed By: #### 4 6449 ####[facility] [address] [place], [place] [address] Glenn Gudino M.D. [id number] EGFR 22 mL/min/1.73 m2 Low >=60 [facility] Comment on above: Order Comment: [facility] has implemented the eGFR calculation approach that does not have a coefficient for race that conforms to the NKF-ASN Task Force Recommendations. Result Comment: Joi mated GFR was calculated using the 2020 CKD-EPI creatinine equation. Performed By: #### 4 6449 ####[facility] [address] [place], [place] [address] Glenn Gudino M.D. [id number] Glucose [Mass/Vol] 103 mg/dL High 65-99 [facility] Comment on above: Order Comment: [facility] has implemented the eGFR calculation approach that does not have a coefficient for race that conforms to the NKF-ASN Task Force Recommendations. Performed By: #### 4 6449 ####[facility] [address] [place] [address] 67210 Glenn Gudino M.D. [id number] HCO3 (Bld) [Moles/Vol] 24 mmol/L Normal 21-32 [facility] Comment on above: Order Comment: [facility] has implemented the eGFR calculation approach that does not have a coefficient for race that conforms to the NKF-ASN Task Force Recommendations. Performed By: #### 4 6449 ####[facility] [address] [place] [address] 75959 Glenn Gudino M.D. [id number] Phosphate [Mass/Vol] 5.4 mg/dL High 2.8-4.1 [facility] Comment on above: Order Comment: [facility] has implemented the eGFR calculation approach that does not have a coefficient for race that conforms to the NKF-ASN Task Force Recommendations. Performed By: #### 4 6449 ####[facility] [address] [place], [place] [id number] Glenn Gudino M.D. [id number] Potassium [Moles/Vol] 4.7 mmol/L Normal 3.5-5.1 [facility] Comment on above: Order Comment: [facility] has implemented the eGFR calculation approach that does not have a coefficient for race that conforms to the NKF-ASN Task Force Recommendations. Performed By: #### 4 6449 ####[facility] [address] [place], [place] [id number] Glenn Gudino M.D. [id number] Sodium [Moles/Vol] 136 mmol/L Normal 135-145 [facility] Comment on above: Order Comment: [facility] has implemented the eGFR calculation approach that does not have a coefficient for race that conforms to the NKF-ASN Task Force Recommendations. Performed By: #### 4 6449 ####[facility] [address] [place] [address] 28149 Glenn Gudino M.D. [id number] Urea nitrogen [Mass/Vol] 33 mg/dL High 8-25 [facility] Comment on above: Order Comment: [facility] has implemented the eGFR calculation approach that does not have a coefficient for race that conforms to the NKF-ASN Task Force Recommendations. Performed By: #### 4 6449 ####[facility] [address] [place] [address] 15602 Glenn Gudino M.D. [id number] Urea nitrogen/Creatinine [Mass ratio] 13.6 mg/mg Normal 10.0-20.0 [facility] Comment on above: Order Comment: [facility] has implemented the eGFR calculation approach that does not have a coefficient for race that conforms to the NKF-ASN Task Force Recommendations. Performed By: #### 4 6449 ####[facility] [address] [place] [address] 56174 Glenn Gudino M.D. [id number] Albumin [Mass/Vol] 1.6 g/dL Low 3.2-5.2 [facility] Comment on above: Order Comment: [facility] has implemented the eGFR calculation approach that does not have a coefficient for race that conforms to the NKF-ASN Task Force Recommendations. Performed By: #### 4 6449 ####[facility] [address] [place] [address] 36766 Glenn Gudino M.D. [id number] Anion gap [Moles/Vol] 19 mmol/L Normal 10-[address] [facility] Comment on above: Order Comment: [facility] has implemented the eGFR calculation approach that does not have a coefficient for race that conforms to the NKF-ASN Task Force Recommendations. Performed By: #### 4 6449 ####[facility] [address] [place] [address] 37117 Glenn Gudino M.D. [id number] Calcium [Mass/Vol] 7.5 mg/dL Low 8.4-10.2 [facility] Comment on above: Order Comment: [facility] has implemented the eGFR calculation approach that does not have a coefficient for race that conforms to the NKF-ASN Task Force Recommendations. Performed By: #### 4 6449 ####[facility] [address] [place] [address] 35675 Glenn Gudino M.D. [id number] Chloride [Moles/Vol] 103 mmol/L Normal 98-108 [facility] Comment on above: Order Comment: [facility] has implemented the eGFR calculation approach that does not have a coefficient for race that conforms to the NKF-ASN Task Force Recommendations. Performed By: #### 4 6449 ####[facility] [address] [place], [place] [address] Glenn Gudino M.D. [id number] Creatinine [Mass/Vol] 2.60 mg/dL High 0.60-1.10 [facility] Comment on above: Order Comment: [facility] has implemented the eGFR calculation approach that does not have a coefficient for race that conforms to the NKF-ASN Task Force Recommendations. Performed By: #### 4 6449 ####[facility] [address] [place], [place] [address] Glenn Gudino M.D. [id number] EGFR 20 mL/min/1.73 m2 Low >=60 [facility] Comment on above: Order Comment: [facility] has implemented the eGFR calculation approach that does not have a coefficient for race that conforms to the NKF-ASN Task Force Recommendations. Result Comment: Joi mated GFR was calculated using the 2020 CKD-EPI creatinine equation. Performed By: #### 4 6449 ####[facility] [address] [place] [address] 64423 Glenn Gudino M.D. [id number] Glucose [Mass/Vol] 89 mg/dL Normal 65-99 [facility] Comment on above: Order Comment: [facility] has implemented the eGFR calculation approach that does not have a coefficient for race that conforms to the NKF-ASN Task Force Recommendations. Performed By: #### 4 6449 ####[facility] [address] [place], [place] [address] Glenn Gudino M.D. [id number] HCO3 (Bld) [Moles/Vol] 20 mmol/L Low 21-32 [facility] Comment on above: Order Comment: [facility] has implemented the eGFR calculation approach that does not have a coefficient for race that conforms to the NKF-ASN Task Force Recommendations. Performed By: #### 4 6449 ####[facility] [address] [place], [place] [address] Glenn Gudino M.D. [id number] Phosphate [Mass/Vol] 6.0 mg/dL High 2.8-4.1 [facility] Comment on above: Order Comment: [facility] has implemented the eGFR calculation approach that does not have a coefficient for race that conforms to the NKF-ASN Task Force Recommendations. Performed By: #### 4 6449 ####[facility] [address] [place], [place] [address] Glenn Gudino M.D. [id number] Potassium [Moles/Vol] 5.0 mmol/L Normal 3.5-5.1 [facility] Comment on above: Order Comment: [facility] has implemented the eGFR calculation approach that does not have a coefficient for race that conforms to the NKF-ASN Task Force Recommendations. Result Comment: Slig htly Hemolyzed Performed By: #### 4 6449 ####[facility] [address] [place], [place] [address] Glenn Gudino M.D. [id number] Sodium [Moles/Vol] 137 mmol/L Normal 135-145 [facility] Comment on above: Order Comment: [facility] has implemented the eGFR calculation approach that does not have a coefficient for race that conforms to the NKF-ASN Task Force Recommendations. Performed By: #### 4 6449 ####[facility] [address] [place] [address] 92779 Glenn Gudino M.D. [id number] Urea nitrogen [Mass/Vol] 34 mg/dL High 8-25 [facility] Comment on above: Order Comment: [facility] has implemented the eGFR calculation approach that does not have a coefficient for race that conforms to the NKF-ASN Task Force Recommendations. Performed By: #### 4 6449 ####[facility] [address] [place] [address] 00028 Glenn Gudino M.D. [id number] Urea nitrogen/Creatinine [Mass ratio] 13.1 mg/mg Normal 10.0-20.0 [facility] Comment on above: Order Comment: [facility] has implemented the eGFR calculation approach that does not have a coefficient for race that conforms to the NKF-ASN Task Force Recommendations. Performed By: #### 4 6449 ####[facility] [address] [place] [address] 56948 Glenn Gudino M.D. [id number] XR CHEST PA/APon 01-27-2024 XR CHEST PA/AP Normal [facility] Comment on above: Order Comment: Injur y/Trauma or Illness?:Illness/OtherHow long have you had these symptoms (acute/chronic)?:UnknownReason for exam?:Chest tube placement, pneumothoraxHistory of cancer?:uSurgeries, chemotherapy, or radiation?:uType of Exam?:UnknownAdditional signs and symptoms?:Chest tube placement, pneumothorax XR CHEST PA/AP Normal [facility] Comment on above: Order Comment: Injur y/Trauma or Illness?:Illness/OtherHow long have you had these symptoms (acute/chronic)?:UnknownReason for exam?:hypoxia, L pneumothorax, effusionHistory of cancer?:uSurgeries, chemotherapy, or radiation?:uType of Exam?:OngoingAdditional signs and symptoms?:- APTT HEPARIN COVERAGEon 12-29 aPTT Coag (Bld) [Time] 134 s Off scale high 23-34 [facility] Comment on above: Order Comment: Thera peutic range for APTT's is 68 - 104 seconds Result Comment: Resu lts checked. Performed By: #### 3 6888 ####[facility] [address] [place] [address] 69462 Glenn Gudino M.D. [id number] aPTT Coag (Bld) [Time] 105 s High 23-34 [facility] Comment on above: Order Comment: Thera peutic range for APTT's is 68 - 104 seconds Result Comment: Resu lts checked. Performed By: #### 4 6848 ####[facility] [address] [place] [address] Glenn Gudino M.D. [id number] BASIC METABOLIC PANEL 08-3 -2023 Anion gap [Moles/Vol] 18 mmol/L Normal 10-20 [facility] Comment on above: Order Comment: [facility] has implemented the eGFR calculation approach that does not have a coefficient for race that conforms to the NKF-ASN Task Force Recommendations. Performed By: #### 4 6124 ####[facility] [address] [place], [place] [address] Glenn Gudino M.D. [id number] Calcium [Mass/Vol] 7.5 mg/dL Low 8.4-10.2 [facility] Comment on above: Order Comment: [facility] has implemented the eGFR calculation approach that does not have a coefficient for race that conforms to the NKF-ASN Task Force Recommendations. Performed By: #### 4 6124 ####[facility] [address] [place], [place] [address] Glenn Gudino M.D. [id number] Chloride [Moles/Vol] 105 mmol/L Normal 98-108 [facility] Comment on above: Order Comment: [facility] has implemented the eGFR calculation approach that does not have a coefficient for race that conforms to the NKF-ASN Task Force Recommendations. Performed By: #### 4 6124 ####[facility] [address] [place], [place] [address] Glenn Gudino M.D. [id number] Creatinine [Mass/Vol] 3.06 mg/dL High 0.60-1.10 [facility] Comment on above: Order Comment: [facility] has implemented the eGFR calculation approach that does not have a coefficient for race that conforms to the NKF-ASN Task Force Recommendations. Performed By: #### 4 6124 ####[facility] [address] [place], [place] [address] Glenn Gudino M.D. [id number] EGFR 17 mL/min/1.73 m2 Low >=60 [facility] Comment on above: Order Comment: [facility] has implemented the eGFR calculation approach that does not have a coefficient for race that conforms to the NKF-ASN Task Force Recommendations. Result Comment: Joi mated GFR was calculated using the 2020 CKD-EPI creatinine equation. Performed By: #### 4 6124 ####[facility] [address] [place], [place] [address] Glenn Gudino M.D. [id number] Glucose [Mass/Vol] 69 mg/dL Normal 65-99 [facility] Comment on above: Order Comment: [facility] has implemented the eGFR calculation approach that does not have a coefficient for race that conforms to the NKF-ASN Task Force Recommendations. Performed By: #### 4 6124 ####[facility] [address] [place] [address] 24972 Glenn Gudino M.D. [id number] HCO3 (Bld) [Moles/Vol] 19 mmol/L Low 21-32 [facility] Comment on above: Order Comment: [facility] has implemented the eGFR calculation approach that does not have a coefficient for race that conforms to the NKF-ASN Task Force Recommendations. Performed By: #### 4 6114 ####[facility] [address] [place] [address] 21047 Glenn Gudino M.D. [id number] Potassium [Moles/Vol] 4.9 mmol/L Normal 3.5-5.1 [facility] Comment on above: Order Comment: [facility] has implemented the eGFR calculation approach that does not have a coefficient for race that conforms to the NKF-ASN Task Force Recommendations. Result Comment: Marisol leblanc Hemolyzed Performed By: #### 4 6124 ####[facility] [address] [place] [address] 73458 Glenn Gudino M.D. [id number] Sodium [Moles/Vol] 137 mmol/L Normal 135-145 [facility] Comment on above: Order Comment: [facility] has implemented the eGFR calculation approach that does not have a coefficient for race that conforms to the NKF-ASN Task Force Recommendations. Performed By: #### 4 6124 ####[facility] [address] [place] [address] 13401 Glenn Gudino M.D. [id number] Urea nitrogen [Mass/Vol] 39 mg/dL High 8-25 [facility] Comment on above: Order Comment: [facility] has implemented the eGFR calculation approach that does not have a coefficient for race that conforms to the NKF-ASN Task Force Recommendations. Performed By: #### 4 6124 ####[facility] [address] [place] [address] 84662 Glenn Gudino M.D. [id number] Urea nitrogen/Creatinine [Mass ratio] 12.7 mg/mg Normal 10.0-20.0 [facility] Comment on above: Order Comment: [facility] has implemented the eGFR calculation approach that does not have a coefficient for race that conforms to the NKF-ASN Task Force Recommendations. Performed By: #### 4 6126 ####[facility] [address] [place] [address] 94199 Glenn Gudino M.D. [id number] Anion gap [Moles/Vol] 17 mmol/L Normal 10-20 [facility] Comment on above: Order Comment: [facility] has implemented the eGFR calculation approach that does not have a coefficient for race that conforms to the NKF-ASN Task Force Recommendations. Performed By: #### 4 6124 ####[facility] [address] [place] [address] 04054 Glenn Gudino M.D. [id number] Calcium [Mass/Vol] 7.6 mg/dL Low 8.4-10.2 [facility] Comment on above: Order Comment: [facility] has implemented the eGFR calculation approach that does not have a coefficient for race that conforms to the NKF-ASN Task Force Recommendations. Performed By: #### 4 6124 ####[facility] [address] [place] [address] 44482 Glenn Gudino M.D. [id number] Chloride [Moles/Vol] 106 mmol/L Normal 98-108 [facility] Comment on above: Order Comment: [facility] has implemented the eGFR calculation approach that does not have a coefficient for race that conforms to the NKF-ASN Task Force Recommendations. Performed By: #### 4 6124 ####[facility] [address] [place] [address] 52413 Glenn Gudino M.D. [id number] Creatinine [Mass/Vol] 2.86 mg/dL High 0.60-1.10 [facility] Comment on above: Order Comment: [facility] has implemented the eGFR calculation approach that does not have a coefficient for race that conforms to the NKF-ASN Task Force Recommendations. Performed By: #### 4 6124 ####[facility] [address] [place] [address] 42110 Glenn Gudino M.D. [id number] EGFR 18 mL/min/1.73 m2 Low >=60 [facility] Comment on above: Order Comment: [facility] has implemented the eGFR calculation approach that does not have a coefficient for race that conforms to the NKF-ASN Task Force Recommendations. Result Comment: Joi mated GFR was calculated using the 2020 CKD-EPI creatinine equation. Performed By: #### 4 6124 ####[facility] [address] [place] [address] 22254 Glenn Gudino M.D. [id number] Glucose [Mass/Vol] 81 mg/dL Normal 65-99 [facility] Comment on above: Order Comment: [facility] has implemented the eGFR calculation approach that does not have a coefficient for race that conforms to the NKF-ASN Task Force Recommendations. Performed By: #### 4 6124 ####[facility] [address] [place] [address] 20095 Glenn Gudino M.D. [id number] HCO3 (Bld) [Moles/Vol] 19 mmol/L Low 21-32 [facility] Comment on above: Order Comment: [facility] has implemented the eGFR calculation approach that does not have a coefficient for race that conforms to the NKF-ASN Task Force Recommendations. Performed By: #### 4 6124 ####[facility] [address] [place] [address] 85525 Glenn Gudino M.D. [id number] Potassium [Moles/Vol] 5.3 mmol/L High 3.5-5.1 [facility] Comment on above: Order Comment: [facility] has implemented the eGFR calculation approach that does not have a coefficient for race that conforms to the NKF-ASN Task Force Recommendations. Result Comment: Slig htly Hemolyzed Performed By: #### 4 6124 ####[facility] [address] [place] [address] 86079 Glenn Gudino M.D. [id number] Sodium [Moles/Vol] 137 mmol/L Normal 135-145 [facility] Comment on above: Order Comment: [facility] has implemented the eGFR calculation approach that does not have a coefficient for race that conforms to the NKF-ASN Task Force Recommendations. Performed By: #### 4 6124 ####[facility] [address] [place] [address] 72472 Glenn Gudino M.D. [id number] Urea nitrogen [Mass/Vol] 38 mg/dL High 8-25 [facility] Comment on above: Order Comment: [facility] has implemented the eGFR calculation approach that does not have a coefficient for race that conforms to the NKF-ASN Task Force Recommendations. Performed By: #### 4 6124 ####[facility] [address] [place] [address] 29925 Glenn Gudino M.D. [id number] Urea nitrogen/Creatinine [Mass ratio] 13.3 mg/mg Normal 10.0-20.0 [facility] Comment on above: Order Comment: [facility] has implemented the eGFR calculation approach that does not have a coefficient for race that conforms to the NKF-ASN Task Force Recommendations. Performed By: #### 4 6124 ####[facility] [address] [place] [address] 61996 Glenn Gudino M.D. [id number] Anion gap [Moles/Vol] 18 mmol/L Normal 10-20 [facility] Comment on above: Order Comment: [facility] has implemented the eGFR calculation approach that does not have a coefficient for race that conforms to the NKF-ASN Task Force Recommendations. Performed By: #### 4 6124 ####[facility] [address] [place] [address] 69086 Glenn Gudino M.D. [id number] Calcium [Mass/Vol] 7.4 mg/dL Low 8.4-10.2 [facility] Comment on above: Order Comment: [facility] has implemented the eGFR calculation approach that does not have a coefficient for race that conforms to the NKF-ASN Task Force Recommendations. Performed By: #### 4 6124 ####[facility] [address] [place] [address] 41753 Glenn Gudino M.D. [id number] Chloride [Moles/Vol] 107 mmol/L Normal 98-108 [facility] Comment on above: Order Comment: [facility] has implemented the eGFR calculation approach that does not have a coefficient for race that conforms to the NKF-ASN Task Force Recommendations. Performed By: #### 4 6124 ####[facility] [address] [place] [address] 97725 Glenn Gudino M.D. [id number] Creatinine [Mass/Vol] 2.54 mg/dL High 0.60-1.10 [facility] Comment on above: Order Comment: [facility] has implemented the eGFR calculation approach that does not have a coefficient for race that conforms to the NKF-ASN Task Force Recommendations. Performed By: #### 4 6124 ####[facility] [address] [place], [place] [address] Glenn Gudino M.D. [id number] EGFR 21 mL/min/1.73 m2 Low >=60 [facility] Comment on above: Order Comment: [facility] has implemented the eGFR calculation approach that does not have a coefficient for race that conforms to the NKF-ASN Task Force Recommendations. Result Comment: Joi mated GFR was calculated using the 2020 CKD-EPI creatinine equation. Performed By: #### 4 6124 ####[facility] [address] [place] [address] 72580 Glenn Gudino M.D. [id number] Glucose [Mass/Vol] 72 mg/dL Normal 65-99 [facility] Comment on above: Order Comment: [facility] has implemented the eGFR calculation approach that does not have a coefficient for race that conforms to the NKF-ASN Task Force Recommendations. Performed By: #### 4 6183 ####[facility] [address] [place] [address] 16532 Glenn Gudino M.D. [id number] HCO3 (Bld) [Moles/Vol] 17 mmol/L Low 21-32 [facility] Comment on above: Order Comment: [facility] has implemented the eGFR calculation approach that does not have a coefficient for race that conforms to the NKF-ASN Task Force Recommendations. Performed By: #### 4 6124 ####[facility] [address] [place] [address] 96829 Glenn Gudino M.D. [id number] Potassium [Moles/Vol] 5.1 mmol/L Normal 3.5-5.1 [facility] Comment on above: Order Comment: [facility] has implemented the eGFR calculation approach that does not have a coefficient for race that conforms to the NKF-ASN Task Force Recommendations. Result Comment: Slig htly Hemolyzed Performed By: #### 4 6124 ####[facility] [address] [place], [place] [address] Glenn Gudino M.D. [id number] Sodium [Moles/Vol] 137 mmol/L Normal 135-145 [facility] Comment on above: Order Comment: [facility] has implemented the eGFR calculation approach that does not have a coefficient for race that conforms to the NKF-ASN Task Force Recommendations. Performed By: #### 4 6124 ####[facility] [address] [place] [address] 36731 Glenn Gudino M.D. [id number] Urea nitrogen [Mass/Vol] 36 mg/dL High 8-25 [facility] Comment on above: Order Comment: [facility] has implemented the eGFR calculation approach that does not have a coefficient for race that conforms to the NKF-ASN Task Force Recommendations. Performed By: #### 4 6124 ####[facility] [address] [place] [address] 71821 Glenn Gudino M.D. [id number] Urea nitrogen/Creatinine [Mass ratio] 14.2 mg/mg Normal 10.0-20.0 [facility] Comment on above: Order Comment: [facility] has implemented the eGFR calculation approach that does not have a coefficient for race that conforms to the NKF-ASN Task Force Recommendations. Performed By: #### 4 6124 ####[facility] [address] [place], [place] [address] Glenn Gudino M.D. [id number] CALCIUM, IONIZEDon CALCIUM IONIZED 4.3 mg/dL Low 4.5-5.3 [facility] Comment on above: Order Comment: Serum , non-CRRT source. Performed By: #### 4 5190 ####[facility] [address] [place] [address] Glenn Gudino M.D. [id number] CALCIUM IONIZED 4.5 mg/dL Normal 4.5-5.3 [facility] Comment on above: Performed By: #### 4 5190 ####[facility] [address] [place] [address] Glenn Gudino M.D. [id number] CBCon 01-26-2024 AUTO NRBC 0.0 % Normal [facility] Comment on above: Performed By: #### 4 5218 ####[facility] [address] [place], [place] [address] Glenn Gudino M.D. [id number] AUTO NRBC ABS COUNT 0.00 K/mcL Normal 0.00-0.00 [facility] Comment on above: Performed By: #### 4 [id number] ####[facility] [address] [place], [place] [address] Glenn Gudino M.D. [id number] Erythrocyte distribution width (RBC) [Ratio] 17.2 % High 11.6-14.8 [facility] Comment on above: Performed By: #### 4 [id number] ####[facility] [address] [place], [place] [id number] Glenn Gudino M.D. [id number] Hematocrit (Bld) [Volume fraction] 31.5 % Low 36.0-46.0 [facility] Comment on above: Performed By: #### 4 [id number] ####[facility] [address] [place], [place] [id number] Glenn Gudino M.D. [id number] Hemoglobin (Bld) [Mass/Vol] 10.5 g/dL Low 12.0-16.0 [facility] Comment on above: Performed By: #### 4 [id number] ####[facility] [address] [place] [address] Glenn Gudino M.D. [id number] MCH (RBC) [Entitic mass] 29.2 pg Normal 26.0-34.0 [facility] Comment on above: Performed By: #### 4 [id number] ####[facility] [address] [place] [address] Glenn Gudino M.D. [id number] MCV (RBC) [Entitic vol] 87.5 fL Normal 80.0-100.0 [facility] Comment on above: Performed By: #### 4 [id number] ####[facility] [address] [place], [place] [address] Glenn Gudino M.D. [id number] MEAN CORPUSCULAR HEMOGLOBIN CONC 33.3 g/dL Normal 31.0-37.0 [facility] Comment on above: Performed By: #### 4 [id number] ####[facility] [address] [place], [place] [id number] Glenn Gudino M.D. [id number] Platelet mean volume (Bld) [Entitic vol] 11.7 fL Normal 9.4-12.4 [facility] Comment on above: Performed By: #### 4 [id number] ####[facility] [address] [place], [place] [address] Glenn Gudino M.D. [id number] Platelets (Bld) [#/Vol] 80 10*3/uL Low 150-400 [facility] Comment on above: Result Comment: Resu lts checked Performed By: #### 4 [id number] ####[facility] [address] [place] [address] 11056 Glenn Gudino M.D. [id number] RBC (Bld) [#/Vol] 3.60 10*6/uL Low 4.00-5.20 [facility] Comment on above: Performed By: #### 4 [id number] ####[facility] [address] [place] [address] Glenn Gudino M.D. [id number] WBC (Bld) [#/Vol] 13.45 10*3/uL High 4.50-11.00 [facility] Comment on above: Performed By: #### 4 [id number] ####[facility] [address] [place], [place] [address] Glenn Gudino M.D. [id number] MAGNESIUM LEVELon 01-26-2024 Magnesium [Mass/Vol] 2.2 mg/dL Normal 1.6-2.4 [facility] Comment on above: Performed By: #### 4 6109 ####[facility] [address] [place] [address]394 Glenn Gudino M.D. [id number] Magnesium [Mass/Vol] 2.2 mg/dL Normal 1.6-2.4 [facility] Comment on above: Performed By: #### 4 6109 ####[facility] [address] [place] [address] 21573 Glenn Gudino M.D. [id number] MYOGLOBIN, URINEon MYOGLOBIN, URINE Positive Abnormal Negative [facility] Comment on above: Performed By: #### 4 6189 ####[facility] [address] [place], [place] [address] Glenn Gudino M.D. [id number] PHOSPHORUSon 01-26-2024 Phosphate [Mass/Vol] 6.5 mg/dL High 2.8-4.1 [facility] Comment on above: Performed By: #### 4 6299 ####[facility] [address] [place] [address] Glenn Gudino M.D. [id number] POC GLUCOSE - [facility] 024 Glucose [Mass/Vol] 96 mg/dL Normal 65-99 [facility] Comment on above: Performed By: #### 4 6932 ####[facility] [address] [place] [address] [id number] [facility] Glucose [Mass/Vol] 14 mg/dL Off scale low 65- [facility] Comment on above: Order Comment: Criti cherrie result acted upon time of test. Test performed at bedside. Performed By: #### 4 6963 ####[facility] [address] [place] [address] [id number] [facility] Glucose [Mass/Vol] 72 mg/dL Normal 65-99 [facility] Comment on above: Performed By: #### 4 6912 ####[facility] [address] [place] [address] [id number] [facility] Glucose [Mass/Vol] 82 mg/dL Normal 65-99 [facility] Comment on above: Performed By: #### 4 6904 ####[facility] [address] [place] [address] [id number] [facility] Glucose [Mass/Vol] 84 mg/dL Normal 65-99 [facility] Comment on above: Performed By: #### 4 6967 ####[facility] [address] [place] [address] [id number] [facility] Glucose [Mass/Vol] 76 mg/dL Normal 65-99 [facility] Comment on above: Performed By: #### 4 6998 ####[facility] [address] [place] [address] [id number] [facility] Glucose [Mass/Vol] 78 mg/dL Normal 65-99 [facility] Comment on above: Performed By: #### 4 6932 ####[facility] TO [facility] [address] [place] [address] [id number] [facility] RENAL FUNCTION PANELon 01-25 Albumin [Mass/Vol] 1.6 g/dL Low 3.2-5.2 [facility] Comment on above: Order Comment: [facility] has implemented the eGFR calculation approach that does not have a coefficient for race that conforms to the NKF-ASN Task Force Recommendations. Performed By: #### 4 6449 ####[facility] [address] [place], [place] [address] Glenn Gudino M.D. [id number] Anion gap [Moles/Vol] 17 mmol/L Normal 10-20 [facility] Comment on above: Order Comment: [facility] has implemented the eGFR calculation approach that does not have a coefficient for race that conforms to the NKF-ASN Task Force Recommendations. Performed By: #### 4 6449 ####[facility] [address] [place] [address] Glenn Gudino M.D. [id number] Calcium [Mass/Vol] 6.9 mg/dL Low 8.4-10.2 [facility] Comment on above: Order Comment: [facility] has implemented the eGFR calculation approach that does not have a coefficient for race that conforms to the NKF-ASN Task Force Recommendations. Performed By: #### 4 6449 ####[facility] [address] [place], [place] [address] Glenn Gudino M.D. [id number] Chloride [Moles/Vol] 103 mmol/L Normal 98-108 [facility] Comment on above: Order Comment: [facility] has implemented the eGFR calculation approach that does not have a coefficient for race that conforms to the NKF-ASN Task Force Recommendations. Performed By: #### 4 6449 ####[facility] [address] [place] [address] Glenn Gudino M.D. [id number] Creatinine [Mass/Vol] 2.90 mg/dL High 0.60-1.10 [facility] Comment on above: Order Comment: [facility] has implemented the eGFR calculation approach that does not have a coefficient for race that conforms to the NKF-ASN Task Force Recommendations. Performed By: #### 4 6449 ####[facility] [address] [place] [address] Glenn Gudino M.D. [id number] EGFR 18 mL/min/1.73 m2 Low >=60 [facility] Comment on above: Order Comment: [facility] has implemented the eGFR calculation approach that does not have a coefficient for race that conforms to the NKF-ASN Task Force Recommendations. Result Comment: Joi mated GFR was calculated using the 2020 CKD-EPI creatinine equation. Performed By: #### 4 6449 ####[facility] [address] [place] [address] Glenn Gudino M.D. [id number] Glucose [Mass/Vol] 84 mg/dL Normal 65-99 [facility] Comment on above: Order Comment: [facility] has implemented the eGFR calculation approach that does not have a coefficient for race that conforms to the NKF-ASN Task Force Recommendations. Performed By: #### 4 6449 ####[facility] [address] [place] [address] Glenn Gudino M.D. [id number] HCO3 (Bld) [Moles/Vol] 21 mmol/L Normal 21-32 [facility] Comment on above: Order Comment: [facility] has implemented the eGFR calculation approach that does not have a coefficient for race that conforms to the NKF-ASN Task Force Recommendations. Performed By: #### 4 6449 ####[facility] [address] [place], [place] [address] Glenn Gudino M.D. [id number] Phosphate [Mass/Vol] 6.5 mg/dL High 2.8-4.1 [facility] Comment on above: Order Comment: [facility] has implemented the eGFR calculation approach that does not have a coefficient for race that conforms to the NKF-ASN Task Force Recommendations. Performed By: #### 4 6449 ####[facility] [address] [place] [address] Glenn Gudino M.D. [id number] Potassium [Moles/Vol] 5.0 mmol/L Normal 3.5-5.1 [facility] Comment on above: Order Comment: [facility] has implemented the eGFR calculation approach that does not have a coefficient for race that conforms to the NKF-ASN Task Force Recommendations. Result Comment: Slig htly Hemolyzed Performed By: #### 4 6449 ####[facility] [address] [place], [place] [address] Glenn Gudino M.D. [id number] Sodium [Moles/Vol] 136 mmol/L Normal 135-145 [facility] Comment on above: Order Comment: [facility] has implemented the eGFR calculation approach that does not have a coefficient for race that conforms to the NKF-ASN Task Force Recommendations. Performed By: #### 4 6449 ####[facility] [address] [place], [place] [address] Glenn Gudino M.D. [id number] Urea nitrogen [Mass/Vol] 39 mg/dL High 8-25 [facility] Comment on above: Order Comment: [facility] has implemented the eGFR calculation approach that does not have a coefficient for race that conforms to the NKF-ASN Task Force Recommendations. Performed By: #### 4 6449 ####[facility] [address] [place], [place] [address] Glenn Gudino M.D. [id number] Urea nitrogen/Creatinine [Mass ratio] 13.4 mg/mg Normal 10.0-20.0 [facility] Comment on above: Order Comment: [facility] has implemented the eGFR calculation approach that does not have a coefficient for race that conforms to the NKF-ASN Task Force Recommendations. Performed By: #### 4 6449 ####[facility] [address] [place] [address] Glenn Gudino M.D. [id number] XR ABDOMEN /KUB/FLAT PLATE/1 VIEWon 01-26-2024 XR ABDOMEN /KUB/FLAT PLATE/1 VIEW Normal [facility] Comment on above: Order Comment: Injur y/Trauma or Illness?:Illness/OtherHow long have you had these symptoms (acute/chronic)?:UnknownReason for exam?:NG placementHistory of cancer?:uSurgeries, chemotherapy, or radiation?:uType of Exam?:InitialAdditional signs and symptoms?:unk XR CHEST PA/APon 01-26-2024 XR CHEST PA/AP Normal [facility] Comment on above: Order Comment: Injur y/Trauma or Illness?:Illness/OtherHow long have you had these symptoms (acute/chronic)?:UnknownReason for exam?:eval LIJ placementHistory of cancer?:uSurgeries, chemotherapy, or radiation?:uType of Exam?:InitialAdditional signs and symptoms?:unk BASIC METABOLIC PANELon 12-28 Anion gap [Moles/Vol] 17 mmol/L Normal 10-[address] [facility] Comment on above: Order Comment: [facility] has implemented the eGFR calculation approach that does not have a coefficient for race that conforms to the NKF-ASN Task Force Recommendations. Performed By: #### 4 6124 ####[facility] [address] [place] [address] 26864 Glenn Gudino M.D. [id number] Calcium [Mass/Vol] 7.3 mg/dL Low 8.4-10.2 [facility] Comment on above: Order Comment: [facility] has implemented the eGFR calculation approach that does not have a coefficient for race that conforms to the NKF-ASN Task Force Recommendations. Performed By: #### 4 6124 ####[facility] [address] [place] [address] 10233 Glenn Gudino M.D. [id number] Chloride [Moles/Vol] 106 mmol/L Normal 98-108 [facility] Comment on above: Order Comment: [facility] has implemented the eGFR calculation approach that does not have a coefficient for race that conforms to the NKF-ASN Task Force Recommendations. Performed By: #### 4 6124 ####[facility] [address] [place] [address]696 Glenn Gudino M.D. [id number] Creatinine [Mass/Vol] 2.50 mg/dL High 0.60-1.10 [facility] Comment on above: Order Comment: [facility] has implemented the eGFR calculation approach that does not have a coefficient for race that conforms to the NKF-ASN Task Force Recommendations. Performed By: #### 4 6124 ####[facility] [address] [place] [address]700 Glenn Gudino M.D. [id number] EGFR 21 mL/min/1.73 m2 Low >=60 [facility] Comment on above: Order Comment: [facility] has implemented the eGFR calculation approach that does not have a coefficient for race that conforms to the NKF-ASN Task Force Recommendations. Result Comment: Joi mated GFR was calculated using the 2020 CKD-EPI creatinine equation. Performed By: #### 4 6124 ####[facility] [address] [place] [address]1969 Glenn Gudino M.D. [id number] Glucose [Mass/Vol] 72 mg/dL Normal 65-99 [facility] Comment on above: Order Comment: [facility] has implemented the eGFR calculation approach that does not have a coefficient for race that conforms to the NKF-ASN Task Force Recommendations. Performed By: #### 4 6124 ####[facility] [address] [place] [address]118 Glenn Gudino M.D. [id number] HCO3 (Bld) [Moles/Vol] 19 mmol/L Low 21-32 [facility] Comment on above: Order Comment: [facility] has implemented the eGFR calculation approach that does not have a coefficient for race that conforms to the NKF-ASN Task Force Recommendations. Performed By: #### 4 6124 ####[facility] [address] [place] [address]43 Glenn Gudino M.D. [id number] Potassium [Moles/Vol] 5.0 mmol/L Normal 3.5-5.1 [facility] Comment on above: Order Comment: [facility] has implemented the eGFR calculation approach that does not have a coefficient for race that conforms to the NKF-ASN Task Force Recommendations. Performed By: #### 4 6124 ####[facility] [address] [place] [address]272 Glenn Gudino M.D. [id number] Sodium [Moles/Vol] 137 mmol/L Normal 135-145 [facility] Comment on above: Order Comment: [facility] has implemented the eGFR calculation approach that does not have a coefficient for race that conforms to the NKF-ASN Task Force Recommendations. Performed By: #### 4 6124 ####[facility] [address] [place] [address] 28841 Glenn Gudino M.D. [id number] Urea nitrogen [Mass/Vol] 32 mg/dL High 8-25 [facility] Comment on above: Order Comment: [facility] has implemented the eGFR calculation approach that does not have a coefficient for race that conforms to the NKF-ASN Task Force Recommendations. Performed By: #### 4 6124 ####[facility] [address] [place] [address]3821 Glenn Gudino M.D. [id number] Urea nitrogen/Creatinine [Mass ratio] 12.8 mg/mg Normal 10.0-20.0 [facility] Comment on above: Order Comment: [facility] has implemented the eGFR calculation approach that does not have a coefficient for race that conforms to the NKF-ASN Task Force Recommendations. Performed By: #### 4 6124 ####[facility] [address] [place], [place] [address] Glenn Gudino M.D. [id number] Anion gap [Moles/Vol] 16 mmol/L Normal 10-20 [facility] Comment on above: Order Comment: [facility] has implemented the eGFR calculation approach that does not have a coefficient for race that conforms to the NKF-ASN Task Force Recommendations. Performed By: #### 4 6124 ####[facility] [address] [place], [place] [address] Glenn Gudino M.D. [id number] Calcium [Mass/Vol] 7.3 mg/dL Low 8.4-10.2 [facility] Comment on above: Order Comment: [facility] has implemented the eGFR calculation approach that does not have a coefficient for race that conforms to the NKF-ASN Task Force Recommendations. Performed By: #### 4 6124 ####[facility] [address] [place], [place] [address] Glenn Gudino M.D. [id number] Chloride [Moles/Vol] 109 mmol/L High 98-108 [facility] Comment on above: Order Comment: [facility] has implemented the eGFR calculation approach that does not have a coefficient for race that conforms to the NKF-ASN Task Force Recommendations. Performed By: #### 4 6124 ####[facility] [address] [place] [address] 82577 Glenn Gudino M.D. [id number] Creatinine [Mass/Vol] 2.31 mg/dL High 0.60-1.10 [facility] Comment on above: Order Comment: [facility] has implemented the eGFR calculation approach that does not have a coefficient for race that conforms to the NKF-ASN Task Force Recommendations. Performed By: #### 4 6124 ####[facility] [address] [place] [address] Glenn Gudino M.D. [id number] EGFR 24 mL/min/1.73 m2 Low >=60 [facility] Comment on above: Order Comment: [facility] has implemented the eGFR calculation approach that does not have a coefficient for race that conforms to the NKF-ASN Task Force Recommendations. Result Comment: Joi mated GFR was calculated using the 2020 CKD-EPI creatinine equation. Performed By: #### 4 6124 ####[facility] [address] [place], [place] [address] Glenn Gudino M.D. [id number] Glucose [Mass/Vol] 115 mg/dL High 65-99 [facility] Comment on above: Order Comment: [facility] has implemented the eGFR calculation approach that does not have a coefficient for race that conforms to the NKF-ASN Task Force Recommendations. Performed By: #### 4 6124 ####[facility] [address] [place] [address] 06668 Glenn Gudino M.D. [id number] HCO3 (Bld) [Moles/Vol] 18 mmol/L Low 21-32 [facility] Comment on above: Order Comment: [facility] has implemented the eGFR calculation approach that does not have a coefficient for race that conforms to the NKF-ASN Task Force Recommendations. Performed By: #### 4 6108 ####[facility] [address] [place], [place] [address] Glenn Gudino M.D. [id number] Potassium [Moles/Vol] 4.8 mmol/L Normal 3.5-5.1 [facility] Comment on above: Order Comment: [facility] has implemented the eGFR calculation approach that does not have a coefficient for race that conforms to the NKF-ASN Task Force Recommendations. Result Comment: Marisol htly Hemolyzed Performed By: #### 4 6124 ####[facility] [address] [place] [address]7552 Glenn Gudino M.D. [id number] Sodium [Moles/Vol] 138 mmol/L Normal 135-145 [facility] Comment on above: Order Comment: [facility] has implemented the eGFR calculation approach that does not have a coefficient for race that conforms to the NKF-ASN Task Force Recommendations. Performed By: #### 4 6124 ####[facility] [address] [place] [address] Glenn Gudino M.D. [id number] Urea nitrogen [Mass/Vol] 33 mg/dL High 8-25 [facility] Comment on above: Order Comment: [facility] has implemented the eGFR calculation approach that does not have a coefficient for race that conforms to the NKF-ASN Task Force Recommendations. Performed By: #### 4 6124 ####[facility] [address] [place] [address]96 Glenn Gudino M.D. [id number] Urea nitrogen/Creatinine [Mass ratio] 14.3 mg/mg Normal 10.0-20.0 [facility] Comment on above: Order Comment: [facility] has implemented the eGFR calculation approach that does not have a coefficient for race that conforms to the NKF-ASN Task Force Recommendations. Performed By: #### 4 6124 ####[facility] [address] [place] [address]174 Glenn Gudino M.D. [id number] Anion gap [Moles/Vol] 16 mmol/L Normal 10-20 [facility] Comment on above: Order Comment: [facility] has implemented the eGFR calculation approach that does not have a coefficient for race that conforms to the NKF-ASN Task Force Recommendations. Performed By: #### 4 6124 ####[facility] [address] [place] [address] 28792 Glenn Gudino M.D. [id number] Calcium [Mass/Vol] 7.7 mg/dL Low 8.4-10.2 [facility] Comment on above: Order Comment: [facility] has implemented the eGFR calculation approach that does not have a coefficient for race that conforms to the NKF-ASN Task Force Recommendations. Performed By: #### 4 6124 ####[facility] [address] [place] [address] 22757 Glenn Gudino M.D. [id number] Chloride [Moles/Vol] 109 mmol/L High 98-108 [facility] Comment on above: Order Comment: [facility] has implemented the eGFR calculation approach that does not have a coefficient for race that conforms to the NKF-ASN Task Force Recommendations. Performed By: #### 4 6124 ####[facility] [address] [place] [address] 64398 Glenn Gudino M.D. [id number] Creatinine [Mass/Vol] 2.24 mg/dL High 0.60-1.10 [facility] Comment on above: Order Comment: [facility] has implemented the eGFR calculation approach that does not have a coefficient for race that conforms to the NKF-ASN Task Force Recommendations. Performed By: #### 4 6124 ####[facility] [address] [place] [address] 85939 Glenn Gudino M.D. [id number] EGFR 24 mL/min/1.73 m2 Low >=60 [facility] Comment on above: Order Comment: [facility] has implemented the eGFR calculation approach that does not have a coefficient for race that conforms to the NKF-ASN Task Force Recommendations. Result Comment: Joi mated GFR was calculated using the 2020 CKD-EPI creatinine equation. Performed By: #### 4 6124 ####[facility] [address] [place] [address] 34925 Glenn Gudino M.D. [id number] Glucose [Mass/Vol] 73 mg/dL Normal 65-99 [facility] Comment on above: Order Comment: [facility] has implemented the eGFR calculation approach that does not have a coefficient for race that conforms to the NKF-ASN Task Force Recommendations. Performed By: #### 4 6124 ####[facility] [address] [place] [address] 15756 Glenn Gudino M.D. [id number] HCO3 (Bld) [Moles/Vol] 18 mmol/L Low 21-32 [facility] Comment on above: Order Comment: [facility] has implemented the eGFR calculation approach that does not have a coefficient for race that conforms to the NKF-ASN Task Force Recommendations. Performed By: #### 4 6124 ####[facility] [address] [place] [address] 45636 Glenn Gudino M.D. [id number] Potassium [Moles/Vol] 5.1 mmol/L Normal 3.5-5.1 [facility] Comment on above: Order Comment: [facility] has implemented the eGFR calculation approach that does not have a coefficient for race that conforms to the NKF-ASN Task Force Recommendations. Result Comment: Slig htly Hemolyzed Performed By: #### 4 6124 ####[facility] [address] [place] [address] 05891 Glenn Gudino M.D. [id number] Sodium [Moles/Vol] 138 mmol/L Normal 135-145 [facility] Comment on above: Order Comment: [facility] has implemented the eGFR calculation approach that does not have a coefficient for race that conforms to the NKF-ASN Task Force Recommendations. Performed By: #### 4 6124 ####[facility] [address] [place] [address] 30137 Glenn Gudino M.D. [id number] Urea nitrogen [Mass/Vol] 32 mg/dL High 8-25 [facility] Comment on above: Order Comment: [facility] has implemented the eGFR calculation approach that does not have a coefficient for race that conforms to the NKF-ASN Task Force Recommendations. Performed By: #### 4 6124 ####[facility] [address] [place] [address] 88338 Glenn Gudino M.D. [id number] Urea nitrogen/Creatinine [Mass ratio] 14.3 mg/mg Normal 10.0-20.0 [facility] Comment on above: Order Comment: [facility] has implemented the eGFR calculation approach that does not have a coefficient for race that conforms to the NKF-ASN Task Force Recommendations. Performed By: #### 4 6124 ####[facility] [address] [place], [place] [address] Glenn Gudino M.D. [id number] Anion gap [Moles/Vol] 16 mmol/L Normal 10-20 [facility] Comment on above: Order Comment: [facility] has implemented the eGFR calculation approach that does not have a coefficient for race that conforms to the NKF-ASN Task Force Recommendations. Performed By: #### 4 6124 ####[facility] [address] [place] [address] 08540 Glenn Gudino M.D. [id number] Calcium [Mass/Vol] 7.4 mg/dL Low 8.4-10.2 [facility] Comment on above: Order Comment: [facility] has implemented the eGFR calculation approach that does not have a coefficient for race that conforms to the NKF-ASN Task Force Recommendations. Performed By: #### 4 6124 ####[facility] [address] [place] [address] 11405 Glenn Gudino M.D. [id number] Chloride [Moles/Vol] 110 mmol/L High 98-108 [facility] Comment on above: Order Comment: [facility] has implemented the eGFR calculation approach that does not have a coefficient for race that conforms to the NKF-ASN Task Force Recommendations. Performed By: #### 4 6124 ####[facility] [address] [place] [address] 45845 Glenn Gudino M.D. [id number] Creatinine [Mass/Vol] 2.19 mg/dL High 0.60-1.10 [facility] Comment on above: Order Comment: [facility] has implemented the eGFR calculation approach that does not have a coefficient for race that conforms to the NKF-ASN Task Force Recommendations. Performed By: #### 4 6124 ####[facility] [address] [place], [place] [address] Glenn Gudino M.D. [id number] EGFR 25 mL/min/1.73 m2 Low >=60 [facility] Comment on above: Order Comment: [facility] has implemented the eGFR calculation approach that does not have a coefficient for race that conforms to the NKF-ASN Task Force Recommendations. Result Comment: Joi mated GFR was calculated using the 2020 CKD-EPI creatinine equation. Performed By: #### 4 6124 ####[facility] [address] [place] [address] 70227 Glenn Gudino M.D. [id number] Glucose [Mass/Vol] 95 mg/dL Normal 65-99 [facility] Comment on above: Order Comment: [facility] has implemented the eGFR calculation approach that does not have a coefficient for race that conforms to the NKF-ASN Task Force Recommendations. Performed By: #### 4 6197 ####[facility] [address] [place] [address] 53172 Glenn Gudino M.D. [id number] HCO3 (Bld) [Moles/Vol] 17 mmol/L Low 21-32 [facility] Comment on above: Order Comment: [facility] has implemented the eGFR calculation approach that does not have a coefficient for race that conforms to the NKF-ASN Task Force Recommendations. Performed By: #### 4 6124 ####[facility] [address] [place] [address] 23290 Glenn Gudino M.D. [id number] Potassium [Moles/Vol] 4.6 mmol/L Normal 3.5-5.1 [facility] Comment on above: Order Comment: [facility] has implemented the eGFR calculation approach that does not have a coefficient for race that conforms to the NKF-ASN Task Force Recommendations. Performed By: #### 4 6124 ####[facility] [address] [place] [address] 77310 Glenn Gudino M.D. [id number] Sodium [Moles/Vol] 138 mmol/L Normal 135-145 [facility] Comment on above: Order Comment: [facility] has implemented the eGFR calculation approach that does not have a coefficient for race that conforms to the NKF-ASN Task Force Recommendations. Performed By: #### 4 6124 ####[facility] [address] [place] [address] 07345 Glenn Gudino M.D. [id number] Urea nitrogen [Mass/Vol] 31 mg/dL High 8-25 [facility] Comment on above: Order Comment: [facility] has implemented the eGFR calculation approach that does not have a coefficient for race that conforms to the NKF-ASN Task Force Recommendations. Performed By: #### 4 6124 ####[facility] [address] [place] [address] 78283 Glenn Gudino M.D. [id number] Urea nitrogen/Creatinine [Mass ratio] 14.2 mg/mg Normal 10.0-20.0 [facility] Comment on above: Order Comment: [facility] has implemented the eGFR calculation approach that does not have a coefficient for race that conforms to the NKF-ASN Task Force Recommendations. Performed By: #### 4 6124 ####[facility] [address] [place] [address] 98114 Glenn Gudino M.D. [id number] Anion gap [Moles/Vol] 18 mmol/L Normal 10-20 [facility] Comment on above: Order Comment: [facility] has implemented the eGFR calculation approach that does not have a coefficient for race that conforms to the NKF-ASN Task Force Recommendations. Performed By: #### 4 6124 ####[facility] [address] [place] [address] 35848 Glenn Gudino M.D. [id number] Calcium [Mass/Vol] 7.0 mg/dL Low 8.4-10.2 [facility] Comment on above: Order Comment: [facility] has implemented the eGFR calculation approach that does not have a coefficient for race that conforms to the NKF-ASN Task Force Recommendations. Performed By: #### 4 6124 ####[facility] [address] [place] [address] 63544 Glenn Gudino M.D. [id number] Chloride [Moles/Vol] 109 mmol/L High 98-108 [facility] Comment on above: Order Comment: [facility] has implemented the eGFR calculation approach that does not have a coefficient for race that conforms to the NKF-ASN Task Force Recommendations. Performed By: #### 4 6124 ####[facility] [address] [place] [address] 26209 Glenn Gudino M.D. [id number] Creatinine [Mass/Vol] 1.78 mg/dL High 0.60-1.10 [facility] Comment on above: Order Comment: [facility] has implemented the eGFR calculation approach that does not have a coefficient for race that conforms to the NKF-ASN Task Force Recommendations. Performed By: #### 4 6124 ####[facility] [address] [place] [address] 41283 Glenn Gudino M.D. [id number] EGFR 32 mL/min/1.73 m2 Low >=60 [facility] Comment on above: Order Comment: [facility] has implemented the eGFR calculation approach that does not have a coefficient for race that conforms to the NKF-ASN Task Force Recommendations. Result Comment: Joi mated GFR was calculated using the 2020 CKD-EPI creatinine equation. Performed By: #### 4 6124 ####[facility] [address] [place], [place] [address] Glenn Gudino M.D. [id number] Glucose [Mass/Vol] 140 mg/dL High 65-99 [facility] Comment on above: Order Comment: [facility] has implemented the eGFR calculation approach that does not have a coefficient for race that conforms to the NKF-ASN Task Force Recommendations. Performed By: #### 4 6124 ####[facility] [address] [place], [place] [address] Glenn Gudino M.D. [id number] HCO3 (Bld) [Moles/Vol] 17 mmol/L Low 21-32 [facility] Comment on above: Order Comment: [facility] has implemented the eGFR calculation approach that does not have a coefficient for race that conforms to the NKF-ASN Task Force Recommendations. Performed By: #### 4 6124 ####[facility] [address] [place] [address] 67845 Glenn Gudino M.D. [id number] Sodium [Moles/Vol] 139 mmol/L Normal 135-145 [facility] Comment on above: Order Comment: [facility] has implemented the eGFR calculation approach that does not have a coefficient for race that conforms to the NKF-ASN Task Force Recommendations. Performed By: #### 4 6124 ####[facility] [address] [place] [address] 37947 Glenn Gudino M.D. [id number] Urea nitrogen [Mass/Vol] 29 mg/dL High 8-25 [facility] Comment on above: Order Comment: [facility] has implemented the eGFR calculation approach that does not have a coefficient for race that conforms to the NKF-ASN Task Force Recommendations. Performed By: #### 4 6124 ####[facility] [address] [place], [place] [address] Glenn Gudino M.D. [id number] Urea nitrogen/Creatinine [Mass ratio] 16.3 mg/mg Normal 10.0-20.0 [facility] Comment on above: Order Comment: [facility] has implemented the eGFR calculation approach that does not have a coefficient for race that conforms to the NKF-ASN Task Force Recommendations. Performed By: #### 4 6124 ####[facility] [address] [place], [place] [address] Glenn Gudion M.D. [id number] CALCIUM, IONIZEDon CALCIUM IONIZED 4.4 mg/dL Low 4.5-5.3 [facility] Comment on above: Performed By: #### 4 5190 ####[facility] [address] [place], [place] [address] Glenn Gudino M.D. [id number] CBCon 01-25-2024 AUTO NRBC 0.0 % Normal [facility] Comment on above: Performed By: #### 4 5218 ####[facility] [address] [place] [address] 16943 Glenn Gudino M.D. [id number] AUTO NRBC ABS COUNT 0.00 K/mcL Normal 0.00-0.00 [facility] Comment on above: Performed By: #### 4 5218 ####[facility] [address] [place] [address] 67344 Glenn Gudino M.D. [id number] Erythrocyte distribution width (RBC) [Ratio] 16.8 % High 11.6-14.8 [facility] Comment on above: Performed By: #### 4 5218 ####[facility] [address] [place], [place] [address] Glenn Gudino M.D. [id number] Hematocrit (Bld) [Volume fraction] 34.2 % Low 36.0-46.0 [facility] Comment on above: Performed By: #### 4 5218 ####[facility] [address] [place] [address] Glenn Gudino M.D. [id number] Hemoglobin (Bld) [Mass/Vol] 11.4 g/dL Low 12.0-16.0 [facility] Comment on above: Performed By: #### 4 5218 ####[facility] [address] [place] [address] Glenn Gudino M.D. [id number] MCH (RBC) [Entitic mass] 28.8 pg Normal 26.0-34.0 [facility] Comment on above: Performed By: #### 4 5218 ####[facility] [address] [place], [place] [address] Glenn Gudino M.D. [id number] MCV (RBC) [Entitic vol] 86.4 fL Normal 80.0-100.0 [facility] Comment on above: Performed By: #### 4 5218 ####[facility] [address] [place], [place] [address] Glenn Gudino M.D. [id number] MEAN CORPUSCULAR HEMOGLOBIN CONC 33.3 g/dL Normal 31.0-37.0 [facility] Comment on above: Performed By: #### 4 5218 ####[facility] [address] [place], [place] [address] Glenn Gudino M.D. [id number] Platelet mean volume (Bld) [Entitic vol] 11.0 fL Normal 9.4-12.4 [facility] Comment on above: Performed By: #### 4 5218 ####[facility] [address] [place], [place] [address] Glenn Gudino M.D. [id number] Platelets (Bld) [#/Vol] 111 10*3/uL Low 150-400 [facility] Comment on above: Performed By: #### 4 5218 ####[facility] [address] [place] [address] Glenn Gudino M.D. [id number] RBC (Bld) [#/Vol] 3.96 10*6/uL Low 4.00-5.20 [facility] Comment on above: Performed By: #### 4 5218 ####[facility] [address] [place] [address] Glenn Gudino M.D. [id number] WBC (Bld) [#/Vol] 12.12 10*3/uL High 4.50-11.00 [facility] Comment on above: Performed By: #### 4 5218 ####[facility] [address] [place], [place] [address] Glenn Gudino M.D. [id number] AUTO NRBC 0.0 % Normal [facility] Comment on above: Performed By: #### 4 5218 ####[facility] [address] [place], [place] [address] Glenn Gudino M.D. [id number] AUTO NRBC ABS COUNT 0.00 K/mcL Normal 0.00-0.00 [facility] Comment on above: Performed By: #### 4 5218 ####[facility] [address] [place], [place] [address] Glenn Gudino M.D. [id number] Erythrocyte distribution width (RBC) [Ratio] 16.3 % High 11.6-14.8 [facility] Comment on above: Performed By: #### 4 5218 ####[facility] [address] [place], [place] [address] Glenn Gudino M.D. [id number] Hematocrit (Bld) [Volume fraction] 36.7 % Normal 36.0-46.0 [facility] Comment on above: Performed By: #### 4 5218 ####[facility] [address] [place] [address] Glenn Gudino M.D. [id number] Hemoglobin (Bld) [Mass/Vol] 12.7 g/dL Normal 12.0-16.0 [facility] Comment on above: Performed By: #### 4 5218 ####[facility] [address] [place], [place] [address] Glenn Gudino M.D. [id number] MCH (RBC) [Entitic mass] 29.5 pg Normal 26.0-34.0 [facility] Comment on above: Performed By: #### 4 5218 ####[facility] [address] [place], [place] [address] Glenn Gudino M.D. [id number] MCV (RBC) [Entitic vol] 85.2 fL Normal 80.0-100.0 [facility] Comment on above: Performed By: #### 4 5218 ####[facility] [address] [place], [place] [address] Glenn Gudino M.D. [id number] MEAN CORPUSCULAR HEMOGLOBIN CONC 34.6 g/dL Normal 31.0-37.0 [facility] Comment on above: Performed By: #### 4 5218 ####[facility] [address] [place], [place] [address] Glenn Gudino M.D. [id number] Platelet mean volume (Bld) [Entitic vol] 10.3 fL Normal 9.4-12.4 [facility] Comment on above: Performed By: #### 4 6918 ####[facility] [address] [place] [address] 78421 Glenn Gudino M.D. [id number] Platelets (Bld) [#/Vol] 126 10*3/uL Low 150-400 [facility] Comment on above: Result Comment: Resu lts checked Performed By: #### 4 5218 ####[facility] [address] [place], [place] [address] Glenn Gudino M.D. [id number] RBC (Bld) [#/Vol] 4.31 10*6/uL Normal 4.00-5.20 [facility] Comment on above: Performed By: #### 4 5218 ####[facility] [address] [place], [place] [address] Glenn Gudino M.D. [id number] WBC (Bld) [#/Vol] 12.24 10*3/uL High 4.50-11.00 [facility] Comment on above: Performed By: #### 4 5218 ####[facility] [address] [place], [place] [address] Glenn Gudino M.D. [id number] CPKon 01-25-2024 CPK 364 U/L High 40-170 [facility] Comment on above: Performed By: #### 4 8261 ####[facility] [address] [place], [place] [address] Glenn Gudino M.D. [id number] MAGNESIUM LEVELon 01-25-2024 Magnesium [Mass/Vol] 2.5 mg/dL High 1.6-2.4 [facility] Comment on above: Performed By: #### 4 6109 ####[facility] [address] [place], [place] [address] Glenn Gudino M.D. [id number] Magnesium [Mass/Vol] 2.5 mg/dL High 1.6-2.4 [facility] Comment on above: Performed By: #### 4 6109 ####[facility] [address] [place] [address] Glenn Gudino M.D. [id number] POC ARTERIAL BLOOD GAS PANEL -KASSY Lenz 01-25-2024 BASE EXCESS, ARTERIAL -5.1 Low -2.0-2.0 [facility] Comment on above: Performed By: #### 4 8716 ####[facility] [address] [place] [address] [id number] [facility] CALCIUM IONIZED 4.4 mg/dL Low 4.5-5.3 [facility] Comment on above: Performed By: #### 4 8716 ####[facility] [address] [place] [address] [id number] [facility] CARBOXYHEMOGLOBIN 1.2 % of total Hb Normal <=1.5 [facility] Comment on above: Result Comment: Refe rence Ranges:Suburban Non-smokers: <1.5%Smokers: 1.5-5.0%Heavy Smokers: 5.0-9.0% Performed By: #### 4 8716 ####[facility] [address] [place] [address] [id number] [facility] Chloride [Moles/Vol] 109 mmol/L High 98-108 [facility] Comment on above: Performed By: #### 4 8716 ####[facility] [address] [place] [address] [id number] [facility] Glucose [Mass/Vol] 78 mg/dL Normal 65-99 [facility] Comment on above: Performed By: #### 4 8716 ####[facility] [address] [place] [address] [id number] [facility] HCO3 (Bld) [Moles/Vol] 19.1 mmol/L Low 22.0-26.0 [facility] Comment on above: Performed By: #### 4 8716 ####[facility] [address] [place] [address] [id number] [facility] Hematocrit (Bld) [Volume fraction] 34.0 % Low 36.0-46.0 [facility] Comment on above: Performed By: #### 4 8716 ####[facility] [address] [place] [address] [id number] [facility] Hemoglobin (Bld) [Mass/Vol] 11.1 g/dL Low 12.0-16.0 [facility] Comment on above: Performed By: #### 4 8716 ####[facility] [address] [place] [address] [id number] [facility] LACTIC ACID, WHOLE BLOOD 1.9 mmol/L Normal 0.6-2.0 [facility] Comment on above: Performed By: #### 4 9016 ####[facility] [address] [place] [address] [id number] [facility] LITER FLOW 4 Normal [facility] Comment on above: Performed By: #### 4 1516 ####[facility] [address] [place] [address] [id number] [facility] METHEMOGLOBIN < Normal 0.0-2.0 [facility] Comment on above: Performed By: #### 4 9916 ####[facility] [address] [place] [address] [id number] [facility] O2HB 97.6 % Normal 94.0-98.0 [facility] Comment on above: Performed By: #### 4 4216 ####[facility] [address] [place] [address] [id number] [facility] Oxygen saturation in Blood 99.3 % High 92.0-99.0 [facility] Comment on above: Performed By: #### 4 9973 ####[facility] [address] [place] [address] [id number] [facility] PCO2 ARTERIAL 32.0 mm Hg Low 35.0-45.0 [facility] Comment on above: Performed By: #### 4 7497 ####[facility] [address] [place] [address] [id number] [facility] PH ARTERIAL 7.39 Normal 7.35-7.45 [facility] Comment on above: Performed By: #### 4 8716 ####[facility] [address] [place] [address] [id number] [facility] PO2 ARTERIAL 132 mm Hg High 80-100 [facility] Comment on above: Performed By: #### 4 8716 ####[facility] [address] [place] [address] [id number] [facility] Potassium [Moles/Vol] 4.6 mmol/L Normal 3.5-5.1 [facility] Comment on above: Performed By: #### 4 8716 ####[facility] [address] [place] [address] [id number] [facility] RESULT NOTIFICATION [id number] Normal [facility] Comment on above: Performed By: #### 4 8716 ####[facility] [address] [place] [address] [id number] [facility] Sodium [Moles/Vol] 134 mmol/L Low 135-145 [facility] Comment on above: Performed By: #### 4 8716 ####[facility] [address] [place] [address] [id number] [facility] POC GLUCOSE - [facility] 024 Glucose [Mass/Vol] 79 mg/dL Normal 65-99 [facility] Comment on above: Performed By: #### 4 1932 ####[facility] [address] [place] [address] [id number] [facility] Glucose [Mass/Vol] 74 mg/dL Normal 65-99 [facility] Comment on above: Performed By: #### 4 1416 ####[facility] [address] [place] [address] [id number] [facility] Glucose [Mass/Vol] 96 mg/dL Normal 65-99 [facility] Comment on above: Performed By: #### 4 6932 ####[facility] [address] [place] [address] [id number] [facility] Glucose [Mass/Vol] 65 mg/dL Normal 65-99 [facility] Comment on above: Performed By: #### 4 6932 ####[facility] [address] [place] [address] [id number] [facility] Glucose [Mass/Vol] 34 mg/dL Off scale low 65-99 [facility] Comment on above: Order Comment: Criti cherrie result acted upon time of test. Test performed at bedside. Performed By: #### 4 6932 ####[facility] [address] [place] [address] [id number] [facility] Glucose [Mass/Vol] 77 mg/dL Normal 65-99 [facility] Comment on above: Performed By: #### 4 6965 ####[facility] [address] [place] [address] [id number] [facility] Glucose [Mass/Vol] 50 mg/dL Low 65-99 [facility] Comment on above: Performed By: #### 4 6932 ####[facility] [address] [place] [address] [id number] [facility] Glucose [Mass/Vol] 75 mg/dL Normal 65-99 [facility] Comment on above: Performed By: #### 4 3607 ####[facility] [address] [place] [address] [id number] [facility] Glucose [Mass/Vol] 136 mg/dL High 65-99 [facility] Comment on above: Performed By: #### 4 6804 ####[facility] [address] [place] [address] [id number] [facility] POTASSIUM LEVELon 01-25-2024 Potassium [Moles/Vol] 5.0 mmol/L Normal 3.5-5.1 [facility] Comment on above: Result Comment: Slig htly Hemolyzed Performed By: #### 4 0022 ####[facility] [address] [place] [address] 38359 Glenn Gudino M.D. [id number] Order Comment: [facility] has implemented the eGFR calculation approach that does not have a coefficient for race that conforms to the NKF-ASN Task Force Recommendations. Performed By: #### 4 6124 ####[facility] [address] [place] [address]299 Glenn Gudino M.D. [id number] PT/INRon 01-25-2024 INR Coag (PPP) [Relative time] 1.2 {INR} High 0.8-1.1 [facility] Comment on above: Order Comment: Jennifer retana the induction phase of oral anticoagulation, the INR may not reflect the anticoagulation status of the patient. Therapeutic ranges for INR's are:Most clinical situations: INR 2.0-3.0Mechanical Prosthetic Valve: INR 2.5-3.5Critical: INR >5.0 Performed By: #### 4 6391 ####[facility] [address] [place] [address] 51459 Glenn Gudino M.D. [id number] PT Coag (PPP) [Time] 15.5 s High 11.8-14.3 [facility] Comment on above: Order Comment: Jennifer retana the induction phase of oral anticoagulation, the INR may not reflect the anticoagulation status of the patient. Therapeutic ranges for INR's are:Most clinical situations: INR 2.0-3.0Mechanical Prosthetic Valve: INR 2.5-3.5Critical: INR >5.0 Performed By: #### 4 6391 ####[facility] [address] [place] [address] 25054 Glenn Gudino M.D. [id number] RENAL FUNCTION PANELon 01-24 Albumin [Mass/Vol] 2.1 g/dL Low 3.2-5.2 [facility] Comment on above: Order Comment: [facility] has implemented the eGFR calculation approach that does not have a coefficient for race that conforms to the NKF-ASN Task Force Recommendations. Performed By: #### 4 6449 ####[facility] [address] [place], [place] [address] Glenn Gudino M.D. [id number] Anion gap [Moles/Vol] 18 mmol/L Normal 10-20 [facility] Comment on above: Order Comment: [facility] has implemented the eGFR calculation approach that does not have a coefficient for race that conforms to the NKF-ASN Task Force Recommendations. Performed By: #### 4 6449 ####[facility] [address] [place] [address] Glenn Gudino M.D. [id number] Performed By: #### 4 6124 ####[facility] [address] [place] [address] Glenn Gudino M.D. [id number] Calcium [Mass/Vol] 7.5 mg/dL Low 8.4-10.2 [facility] Comment on above: Order Comment: [facility] has implemented the eGFR calculation approach that does not have a coefficient for race that conforms to the NKF-ASN Task Force Recommendations. Performed By: #### 4 6449 ####[facility] [address] [place] [address] Glenn Gudino M.D. [id number] Performed By: #### 4 6124 ####[facility] [address] [place], [place] [address] Glenn Gudino M.D. [id number] Chloride [Moles/Vol] 110 mmol/L High 98-108 [facility] Comment on above: Order Comment: [facility] has implemented the eGFR calculation approach that does not have a coefficient for race that conforms to the NKF-ASN Task Force Recommendations. Performed By: #### 4 6449 ####[facility] [address] [place] [address] Glenn Gudino M.D. [id number] Performed By: #### 4 6124 ####[facility] [address] [place] [address] Glenn Gudino M.D. [id number] Creatinine [Mass/Vol] 1.99 mg/dL High 0.60-1.10 [facility] Comment on above: Order Comment: [facility] has implemented the eGFR calculation approach that does not have a coefficient for race that conforms to the NKF-ASN Task Force Recommendations. Performed By: #### 4 6449 ####[facility] [address] [place] [address] Glenn Gudino M.D. [id number] Performed By: #### 4 6124 ####[facility] [address] [place], [place] [address] Glenn Gudino M.D. [id number] EGFR 28 mL/min/1.73 m2 Low >=60 [facility] Comment on above: Order Comment: [facility] has implemented the eGFR calculation approach that does not have a coefficient for race that conforms to the NKF-ASN Task Force Recommendations. Result Comment: Joi mated GFR was calculated using the 2020 CKD-EPI creatinine equation.Estimated GFR was calculated using the 2020 CKD-EPI creatinine equation. Performed By: #### 4 6449 ####[facility] [address] [place], [place] [address] Glenn Gudino M.D. [id number] Result Comment: Joi mated GFR was calculated using the 2020 CKD-EPI creatinine equation. Performed By: #### 4 6124 ####[facility] [address] [place], [place] [address] Glenn Gudino M.D. [id number] Glucose [Mass/Vol] 127 mg/dL High 65-99 [facility] Comment on above: Order Comment: [facility] has implemented the eGFR calculation approach that does not have a coefficient for race that conforms to the NKF-ASN Task Force Recommendations. Performed By: #### 4 6449 ####[facility] [address] [place] [address] Glenn Gudino M.D. [id number] Performed By: #### 4 6124 ####[facility] [address] [place] [address] Glenn Gudino M.D. [id number] HCO3 (Bld) [Moles/Vol] 17 mmol/L Low 21-32 [facility] Comment on above: Order Comment: [facility] has implemented the eGFR calculation approach that does not have a coefficient for race that conforms to the NKF-ASN Task Force Recommendations. Performed By: #### 4 6449 ####[facility] [address] [place] [address] Glenn Gudino M.D. [id number] Performed By: #### 4 6124 ####[facility] [address] [place], [place] [address] Glenn Gudino M.D. [id number] Phosphate [Mass/Vol] 5.4 mg/dL High 2.8-4.1 [facility] Comment on above: Order Comment: [facility] has implemented the eGFR calculation approach that does not have a coefficient for race that conforms to the NKF-ASN Task Force Recommendations. Performed By: #### 4 6449 ####[facility] [address] [place] [address] Glenn Gudino M.D. [id number] Potassium [Moles/Vol] 5.0 mmol/L Normal 3.5-5.1 [facility] Comment on above: Order Comment: [facility] has implemented the eGFR calculation approach that does not have a coefficient for race that conforms to the NKF-ASN Task Force Recommendations. Result Comment: Slig htly Hemolyzed Performed By: #### 4 6449 ####[facility] [address] [place] [address] Glenn Gudino M.D. [id number] Performed By: #### 4 6124 ####[facility] [address] [place] [address] Glenn Gudino M.D. [id number] Sodium [Moles/Vol] 140 mmol/L Normal 135-145 [facility] Comment on above: Order Comment: [facility] has implemented the eGFR calculation approach that does not have a coefficient for race that conforms to the NKF-ASN Task Force Recommendations. Performed By: #### 4 6449 ####[facility] [address] [place] [address] Glenn Gudino M.D. [id number] Performed By: #### 4 6124 ####[facility] [address] [place], [place] [address] Glenn Gudino M.D. [id number] Urea nitrogen [Mass/Vol] 30 mg/dL High 8-25 [facility] Comment on above: Order Comment: [facility] has implemented the eGFR calculation approach that does not have a coefficient for race that conforms to the NKF-ASN Task Force Recommendations. Performed By: #### 4 6449 ####[facility] [address] [place], [place] [address] Glenn Gudino M.D. [id number] Performed By: #### 4 6124 ####[facility] [address] [place], [place] [address] Glenn Gudino M.D. [id number] Urea nitrogen/Creatinine [Mass ratio] 15.1 mg/mg Normal 10.0-20.0 [facility] Comment on above: Order Comment: [facility] has implemented the eGFR calculation approach that does not have a coefficient for race that conforms to the NKF-ASN Task Force Recommendations. Performed By: #### 4 6449 ####[facility] [address] [place] [address] Glenn Gudino M.D. [id number] Performed By: #### 4 6124 ####[facility] [address] [place] [address] Glenn Gudino M.D. [id number] XR CHEST PA/APon 01-25-2024 XR CHEST PA/AP [facility] Comment on above: Order Comment: Injur y/Trauma or Illness?:Illness/OtherHow long have you had these symptoms (acute/chronic)?:AcuteReason for exam?:ettHistory of cancer?:uSurgeries, chemotherapy, or radiation?:uType of Exam?:OngoingAdditional signs and symptoms?:ett ANTIBODY IDENTIFICATION ARC- Con 01-24-2024 ANTIBODY IDENTIFICATION ARC-C [facility] Comment on above: Performed By: #### A BIDARC_Anti-C ####PENDING SALE TO [facility] [address] Nurys Oneill MD [id number] RMHTS ANTIBODY IDENTIFICATION ARC- FYAon 01-24-2024 ANTIBODY IDENTIFICATION ARC-FYA [facility] Comment on above: Performed By: #### A BIDARC_Anti-Fya ####PENDING SALE TO [facility] [address] [place] [address] Nurys Oneill MD [id number] RMHTS ANTIBODY IDENTIFICATION ARC- INCon 01-24-2024 ANTIBODY IDENTIFICATION ARC-INC [facility] Comment on above: Performed By: #### A BIDARC_Inconclusive ####PENDING SALE TO [facility] [address] [place] [address] Nurys Oneill MD [id number] [facility] APTTon 01-24-2024 aPTT Coag (Bld) [Time] 37 s High 23-34 [facility] Comment on above: Order Comment: Thera peutic range for APTT's is 68 - 104 seconds Result Comment: Resu lts checked. Performed By: #### 4 5113 ####[facility] [address] [place] [address] Glenn Gudino M.D. [id number] BASIC METABOLIC PANELon 12-28 Anion gap [Moles/Vol] 15 mmol/L Normal 10-20 [facility] Comment on above: Order Comment: [facility] has implemented the eGFR calculation approach that does not have a coefficient for race that conforms to the NKF-ASN Task Force Recommendations. Performed By: #### 4 6124 ####[facility] [address] [place] [address] Glenn Gudino M.D. [id number] Calcium [Mass/Vol] 7.6 mg/dL Low 8.4-10.2 [facility] Comment on above: Order Comment: [facility] has implemented the eGFR calculation approach that does not have a coefficient for race that conforms to the NKF-ASN Task Force Recommendations. Performed By: #### 4 6124 ####[facility] [address] [place] [address] Glenn Gudino M.D. [id number] Chloride [Moles/Vol] 111 mmol/L High 98-108 [facility] Comment on above: Order Comment: [facility] has implemented the eGFR calculation approach that does not have a coefficient for race that conforms to the NKF-ASN Task Force Recommendations. Performed By: #### 4 6124 ####[facility] [address] [place] [address] Glenn Gudino M.D. [id number] Creatinine [Mass/Vol] 1.77 mg/dL High 0.60-1.10 [facility] Comment on above: Order Comment: [facility] has implemented the eGFR calculation approach that does not have a coefficient for race that conforms to the NKF-ASN Task Force Recommendations. Performed By: #### 4 6124 ####[facility] [address] [place] [address] Glenn Gudino M.D. [id number] EGFR 32 mL/min/1.73 m2 Low >=60 [facility] Comment on above: Order Comment: [facility] has implemented the eGFR calculation approach that does not have a coefficient for race that conforms to the NKF-ASN Task Force Recommendations. Result Comment: Joi mated GFR was calculated using the 2020 CKD-EPI creatinine equation. Performed By: #### 4 6124 ####[facility] [address] [place], [place] [address] Glenn Gudino M.D. [id number] Glucose [Mass/Vol] 164 mg/dL High 65-99 [facility] Comment on above: Order Comment: [facility] has implemented the eGFR calculation approach that does not have a coefficient for race that conforms to the NKF-ASN Task Force Recommendations. Performed By: #### 4 6124 ####[facility] [address] [place], [place] [address] Glenn Gudino M.D. [id number] HCO3 (Bld) [Moles/Vol] 18 mmol/L Low 21-32 [facility] Comment on above: Order Comment: [facility] has implemented the eGFR calculation approach that does not have a coefficient for race that conforms to the NKF-ASN Task Force Recommendations. Performed By: #### 4 6124 ####[facility] [address] [place], [place] [address] Glenn Gudino M.D. [id number] Potassium [Moles/Vol] 4.7 mmol/L Normal 3.5-5.1 [facility] Comment on above: Order Comment: [facility] has implemented the eGFR calculation approach that does not have a coefficient for race that conforms to the NKF-ASN Task Force Recommendations. Performed By: #### 4 6124 ####[facility] [address] [place], [place] [address] Glenn Gudino M.D. [id number] Sodium [Moles/Vol] 139 mmol/L Normal 135-145 [facility] Comment on above: Order Comment: [facility] has implemented the eGFR calculation approach that does not have a coefficient for race that conforms to the NKF-ASN Task Force Recommendations. Performed By: #### 4 6177 ####[facility] [address] [place] [address] Glenn Gudino M.D. [id number] Urea nitrogen [Mass/Vol] 27 mg/dL High 8-25 [facility] Comment on above: Order Comment: [facility] has implemented the eGFR calculation approach that does not have a coefficient for race that conforms to the NKF-ASN Task Force Recommendations. Performed By: #### 4 6102 ####[facility] [address] [place], [place] [address] Glenn Gudino M.D. [id number] Urea nitrogen/Creatinine [Mass ratio] 15.3 mg/mg Normal 10.0-20.0 [facility] Comment on above: Order Comment: [facility] has implemented the eGFR calculation approach that does not have a coefficient for race that conforms to the NKF-ASN Task Force Recommendations. Performed By: #### 4 6118 ####[facility] [address] [place] [address] Glenn Gudino M.D. [id number] Anion gap [Moles/Vol] 16 mmol/L Normal 10-[address] [facility] Comment on above: Order Comment: [facility] has implemented the eGFR calculation approach that does not have a coefficient for race that conforms to the NKF-ASN Task Force Recommendations. Performed By: #### 4 6182 ####[facility] [address] [place], [place] [address] Glenn Gudino M.D. [id number] Performed By: #### 4 6142 ####[facility] [address] [place] [address] Glenn Gudino M.D. [id number] Calcium [Mass/Vol] 6.2 mg/dL Low 8.4-10.2 [facility] Comment on above: Order Comment: [facility] has implemented the eGFR calculation approach that does not have a coefficient for race that conforms to the NKF-ASN Task Force Recommendations. Performed By: #### 4 6124 ####[facility] [address] [place] [address] Glenn Gudino M.D. [id number] Performed By: #### 4 6126 ####[facility] [address] [place] [address] Glenn Gudino M.D. [id number] Chloride [Moles/Vol] 115 mmol/L High 98-108 [facility] Comment on above: Order Comment: [facility] has implemented the eGFR calculation approach that does not have a coefficient for race that conforms to the NKF-ASN Task Force Recommendations. Performed By: #### 4 6124 ####[facility] [address] [place] [address] Glenn Gudino M.D. [id number] Performed By: #### 4 6126 ####[facility] [address] [place], [place] [address] Glenn Gudino M.D. [id number] Creatinine [Mass/Vol] 1.54 mg/dL High 0.60-1.10 [facility] Comment on above: Order Comment: [facility] has implemented the eGFR calculation approach that does not have a coefficient for race that conforms to the NKF-ASN Task Force Recommendations. Performed By: #### 4 6136 ####[facility] [address] [place] [address] Glenn Gudino M.D. [id number] Performed By: #### 4 6178 ####[facility] [address] [place] [address] Glenn Gudino M.D. [id number] EGFR 38 mL/min/1.73 m2 Low >=60 [facility] Comment on above: Order Comment: [facility] has implemented the eGFR calculation approach that does not have a coefficient for race that conforms to the NKF-ASN Task Force Recommendations. Result Comment: Joi mated GFR was calculated using the 2020 CKD-EPI creatinine equation.Estimated GFR was calculated using the 2020 CKD-EPI creatinine equation. Performed By: #### 4 6124 ####[facility] [address] [place], [place] [address] Glenn Gudino M.D. [id number] Result Comment: Joi mated GFR was calculated using the 2020 CKD-EPI creatinine equation. Performed By: #### 4 6126 ####[facility] [address] [place], [place] [address] Glenn Gudino M.D. [id number] Glucose [Mass/Vol] 122 mg/dL High 65-99 [facility] Comment on above: Order Comment: [facility] has implemented the eGFR calculation approach that does not have a coefficient for race that conforms to the NKF-ASN Task Force Recommendations. Performed By: #### 4 6124 ####[facility] [address] [place] [address] Glenn Gudino M.D. [id number] Performed By: #### 4 6126 ####[facility] [address] [place], [place] [address] Glenn Gudino M.D. [id number] HCO3 (Bld) [Moles/Vol] 13 mmol/L Low 21-32 [facility] Comment on above: Order Comment: [facility] has implemented the eGFR calculation approach that does not have a coefficient for race that conforms to the NKF-ASN Task Force Recommendations. Performed By: #### 4 6105 ####[facility] [address] [place] [address] Glenn Gudino M.D. [id number] Performed By: #### 4 6126 ####[facility] [address] [place], [place] [address] Glenn Gudino M.D. [id number] Potassium [Moles/Vol] 5.1 mmol/L Normal 3.5-5.1 [facility] Comment on above: Order Comment: [facility] has implemented the eGFR calculation approach that does not have a coefficient for race that conforms to the NKF-ASN Task Force Recommendations. Result Comment: Slig htly Hemolyzed Performed By: #### 4 6102 ####[facility] [address] [place] [address] Glenn Guidno M.D. [id number] Performed By: #### 4 6138 ####[facility] [address] [place] [address] Glenn Gudino M.D. [id number] Sodium [Moles/Vol] 139 mmol/L Normal 135-145 [facility] Comment on above: Order Comment: [facility] has implemented the eGFR calculation approach that does not have a coefficient for race that conforms to the NKF-ASN Task Force Recommendations. Performed By: #### 4 6102 ####[facility] [address] [place], [place] [address] Glenn Gudino M.D. [id number] Performed By: #### 4 6126 ####[facility] [address] [place], [place] [address] Glenn Gudino M.D. [id number] Urea nitrogen [Mass/Vol] 25 mg/dL Normal 8-25 [facility] Comment on above: Order Comment: [facility] has implemented the eGFR calculation approach that does not have a coefficient for race that conforms to the NKF-ASN Task Force Recommendations. Performed By: #### 4 6120 ####[facility] [address] [place], [place] [address] Glenn Gudino M.D. [id number] Performed By: #### 4 6126 ####[facility] [address] [place], [place] [address] Glenn Gudino M.D. [id number] Urea nitrogen/Creatinine [Mass ratio] 16.2 mg/mg Normal 10.0-20.0 [facility] Comment on above: Order Comment: [facility] has implemented the eGFR calculation approach that does not have a coefficient for race that conforms to the NKF-ASN Task Force Recommendations. Performed By: #### 4 6124 ####[facility] [address] [place] [address] Glenn Gudino M.D. [id number] Performed By: #### 4 6126 ####[facility] [address] [place], [place] [address] Glenn Gudino M.D. [id number] CALCIUM, IONIZEDon CALCIUM IONIZED 4.5 mg/dL Normal 4.5-5.3 [facility] Comment on above: Performed By: #### 4 5190 ####[facility] [address] [place], [place] [address] Glenn Gudino M.D. [id number] CBCon 01-24-2024 AUTO NRBC 0.0 % Normal [facility] Comment on above: Performed By: #### 4 5218 ####[facility] [address] [place], [place] [address] Glenn Gudino M.D. [id number] AUTO NRBC ABS COUNT 0.00 K/mcL Normal 0.00-0.00 [facility] Comment on above: Performed By: #### 4 5218 ####[facility] [address] [place], [place] [address] Glenn Gudino M.D. [id number] Erythrocyte distribution width (RBC) [Ratio] 16.2 % High 11.6-14.8 [facility] Comment on above: Performed By: #### 4 5218 ####[facility] [address] [place] [address] Glenn Gudino M.D. [id number] Hematocrit (Bld) [Volume fraction] 32.4 % Low 36.0-46.0 [facility] Comment on above: Performed By: #### 4 5218 ####[facility] [address] [place] [address] Glenn Gudino M.D. [id number] Hemoglobin (Bld) [Mass/Vol] 10.5 g/dL Low 12.0-16.0 [facility] Comment on above: Performed By: #### 4 5218 ####[facility] [address] [place] [address] Glenn Gudino M.D. [id number] MCH (RBC) [Entitic mass] 29.2 pg Normal 26.0-34.0 [facility] Comment on above: Performed By: #### 4 5218 ####[facility] [address] [place] [address] Glenn Gudino M.D. [id number] MCV (RBC) [Entitic vol] 90.0 fL Normal 80.0-100.0 [facility] Comment on above: Performed By: #### 4 5218 ####[facility] [address] [place] [address] Glenn Gudino M.D. [id number] MEAN CORPUSCULAR HEMOGLOBIN CONC 32.4 g/dL Normal 31.0-37.0 [facility] Comment on above: Performed By: #### 4 5218 ####[facility] [address] [place], [place] [address] Glenn Gudino M.D. [id number] Platelet mean volume (Bld) [Entitic vol] 9.8 fL Normal 9.4-12.4 [facility] Comment on above: Performed By: #### 4 5218 ####[facility] [address] [place], [place] [address] Glenn Gudino M.D. [id number] Platelets (Bld) [#/Vol] 68 10*3/uL Low 150-400 [facility] Comment on above: Result Comment: Zuleima pheral smear reviewed manually Performed By: #### 4 5218 ####[facility] [address] [place] [address] Glenn Gudino M.D. [id number] RBC (Bld) [#/Vol] 3.60 10*6/uL Low 4.00-5.20 [facility] Comment on above: Performed By: #### 4 5218 ####[facility] [address] [place], [place] [address] Glenn Gudino M.D. [id number] WBC (Bld) [#/Vol] 9.35 10*3/uL Normal 4.50-11.00 [facility] Comment on above: Result Comment: Neut rophilia with Left Shift Confirmed. Performed By: #### 4 5218 ####[facility] [address] [place] [address] Glenn Gudino M.D. [id number] AUTO NRBC 0.0 % Normal [facility] Comment on above: Performed By: #### 4 5218 ####[facility] [address] [place] [address] Glenn Gudino M.D. [id number] AUTO NRBC ABS COUNT 0.00 K/mcL Normal 0.00-0.00 [facility] Comment on above: Performed By: #### 4 5218 ####[facility] [address] [place], [place] [address] Glenn Gudino M.D. [id number] Erythrocyte distribution width (RBC) [Ratio] 17.1 % High 11.6-14.8 [facility] Comment on above: Performed By: #### 4 5218 ####[facility] [address] [place] [address] Glenn Gudino M.D. [id number] Hematocrit (Bld) [Volume fraction] 38.0 % Normal 36.0-46.0 [facility] Comment on above: Result Comment: Resu lts checked Performed By: #### 4 5218 ####[facility] [address] [place] [address] Glenn Gudino M.D. [id number] Hemoglobin (Bld) [Mass/Vol] 12.3 g/dL Normal 12.0-16.0 [facility] Comment on above: Result Comment: Resu lts checked Performed By: #### 4 5218 ####[facility] [address] [place] [address] Glenn Gudino M.D. [id number] MCH (RBC) [Entitic mass] 28.0 pg Normal 26.0-34.0 [facility] Comment on above: Performed By: #### 4 [id number] ####[facility] [address] [place] [address] Glenn Gudino M.D. [id number] MCV (RBC) [Entitic vol] 86.4 fL Normal 80.0-100.0 [facility] Comment on above: Performed By: #### 4 5218 ####[facility] [address] [place], [place] [address] Glenn Gudino M.D. [id number] MEAN CORPUSCULAR HEMOGLOBIN CONC 32.4 g/dL Normal 31.0-37.0 [facility] Comment on above: Performed By: #### 4 5208 ####[facility] [address] [place] [address] Glenn Gudino M.D. [id number] Platelet mean volume (Bld) [Entitic vol] 9.3 fL Low 9.4-12.4 [facility] Comment on above: Performed By: #### 4 [id number] ####[facility] [address] [place] [address] Glenn Gudino M.D. [id number] Platelets (Bld) [#/Vol] 201 10*3/uL Normal 150-400 [facility] Comment on above: Performed By: #### 4 [id number] ####[facility] [address] [place] [address] Glenn Gudino M.D. [id number] RBC (Bld) [#/Vol] 4.40 10*6/uL Normal 4.00-5.20 [facility] Comment on above: Performed By: #### 4 5218 ####[facility] [address] [place] [address] Glenn Gudino M.D. [id number] WBC (Bld) [#/Vol] 6.12 10*3/uL Normal 4.50-11.00 [facility] Comment on above: Performed By: #### 4 [id number] ####[facility] [address] [place], [place] [address] Glenn Gudino M.D. [id number] CITRATED TEG (OK TERAN LD AND PENDING SALE TO [facility] ONLY)on 01-24-2024 (CFF-MA) CITRATED FUNCTIONAL FIBRINOGEN - MA 12.3 mm Low 15.0-32.0 [facility] Comment on above: Performed By: #### 4 8962 ####[facility] [address] [place], [place] [address] Glenn Gudino M.D. [id number] (CK-LY30) CITRATED KAOLIN - LYSIS 30 MIN AFTER MA 0.0 % Normal 0.0-2.6 [facility] Comment on above: Performed By: #### 4 8962 ####[facility] [address] [place] [address] Glenn Gudino M.D. [id number] (CK-R) CITRATED KAOLIN - REACTION TIME 6.7 min Normal 4.6-9.1 [facility] Comment on above: Performed By: #### 4 8962 ####[facility] [address] [place], [place] [address] Glenn Gudino M.D. [id number] (TABLE RUNNER-MA) CITRATED RAPID TEG - MA 41.8 mm Low 52.0-70.0 [facility] Comment on above: Performed By: #### 4 8962 ####[facility] [address] [place] [address] Glenn Gudino M.D. [id number] COMPREHENSIVE METABOLIC PANE Magdal[place] 01-24-2024 Albumin [Mass/Vol] 1.1 g/dL Low 3.2-5.2 [facility] Comment on above: Order Comment: [facility] has implemented the eGFR calculation approach that does not have a coefficient for race that conforms to the NKF-ASN Task Force Recommendations. Performed By: #### 4 6126 ####[facility] [address] [place] [id number] Glenn Gudino M.D. [id number] ALP [Catalytic activity/Vol] 23 U/L Low 40-150 [facility] Comment on above: Order Comment: [facility] has implemented the eGFR calculation approach that does not have a coefficient for race that conforms to the NKF-ASN Task Force Recommendations. Performed By: #### 4 [id number] ####[facility] [address] [place], [place] [id number] Glenn Gudino M.D. [id number] ALT [Catalytic activity/Vol] 10 U/L Normal 0-35 U/L [facility] Comment on above: Order Comment: [facility] has implemented the eGFR calculation approach that does not have a coefficient for race that conforms to the NKF-ASN Task Force Recommendations. Performed By: #### 4 [id number] ####[facility] [address] [place] [address] Glenn Gudino M.D. [id number] AST [Catalytic activity/Vol] 27 U/L Normal 0-35 U/L [facility] Comment on above: Order Comment: [facility] has implemented the eGFR calculation approach that does not have a coefficient for race that conforms to the NKF-ASN Task Force Recommendations. Result Comment: Slig htly Hemolyzed Performed By: #### 4 [id number] ####[facility] [address] [place] [address] Glenn Gudino M.D. [id number] BILIRUBIN TOTAL < Normal 0.0-1.3 [facility] Comment on above: Order Comment: [facility] has implemented the eGFR calculation approach that does not have a coefficient for race that conforms to the NKF-ASN Task Force Recommendations. Performed By: #### 4 [id number] ####[facility] [address] [place] [address] Glenn Gudino M.D. [id number] Protein [Mass/Vol] 2.5 g/dL Low 6.0-8.0 [facility] Comment on above: Order Comment: [facility] has implemented the eGFR calculation approach that does not have a coefficient for race that conforms to the NKF-ASN Task Force Recommendations. Performed By: #### 4 6126 ####[facility] [address] [place] [address] Glenn Gudino M.D. [id number] Albumin [Mass/Vol] 2.9 g/dL Low 3.2-5.2 [facility] Comment on above: Order Comment: [facility] has implemented the eGFR calculation approach that does not have a coefficient for race that conforms to the NKF-ASN Task Force Recommendations. Performed By: #### 4 6126 ####[facility] [address] [place] [address] Glenn Gudino M.D. [id number] ALP [Catalytic activity/Vol] 67 U/L Normal 40-150 [facility] Comment on above: Order Comment: [facility] has implemented the eGFR calculation approach that does not have a coefficient for race that conforms to the NKF-ASN Task Force Recommendations. Performed By: #### 4 6126 ####[facility] [address] [place], [place] [address] Glenn Gudino M.D. [id number] ALT [Catalytic activity/Vol] 11 U/L Normal 0-35 U/L [facility] Comment on above: Order Comment: [facility] has implemented the eGFR calculation approach that does not have a coefficient for race that conforms to the NKF-ASN Task Force Recommendations. Performed By: #### 4 6126 ####[facility] [address] [place], [place] [address] Glenn Gudino M.D. [id number] Anion gap [Moles/Vol] 15 mmol/L Normal 10-20 [facility] Comment on above: Order Comment: [facility] has implemented the eGFR calculation approach that does not have a coefficient for race that conforms to the NKF-ASN Task Force Recommendations. Performed By: #### 4 6126 ####[facility] [address] [place], [place] [address] Glenn Gudino M.D. [id number] AST [Catalytic activity/Vol] 23 U/L Normal 0-35 U/L [facility] Comment on above: Order Comment: [facility] has implemented the eGFR calculation approach that does not have a coefficient for race that conforms to the NKF-ASN Task Force Recommendations. Performed By: #### 4 6126 ####[facility] [address] [place], [place] [address] Glenn Gudino M.D. [id number] Bilirubin [Mass/Vol] 0.6 mg/dL Normal 0.0-1.3 [facility] Comment on above: Order Comment: [facility] has implemented the eGFR calculation approach that does not have a coefficient for race that conforms to the NKF-ASN Task Force Recommendations. Performed By: #### 4 6126 ####[facility] [address] [place], [place] [address] Glenn Gudino M.D. [id number] Calcium [Mass/Vol] 8.1 mg/dL Low 8.4-10.2 [facility] Comment on above: Order Comment: [facility] has implemented the eGFR calculation approach that does not have a coefficient for race that conforms to the NKF-ASN Task Force Recommendations. Performed By: #### 4 6126 ####[facility] [address] [place], [place] [address] Glenn Gudino M.D. [id number] Chloride [Moles/Vol] 102 mmol/L Normal 98-108 [facility] Comment on above: Order Comment: [facility] has implemented the eGFR calculation approach that does not have a coefficient for race that conforms to the NKF-ASN Task Force Recommendations. Performed By: #### 4 6126 ####[facility] [address] [place], [place] [address] Glenn Gudino M.D. [id number] Creatinine [Mass/Vol] 1.88 mg/dL High 0.60-1.10 [facility] Comment on above: Order Comment: [facility] has implemented the eGFR calculation approach that does not have a coefficient for race that conforms to the NKF-ASN Task Force Recommendations. Performed By: #### 4 6126 ####[facility] [address] [place], [place] [address] Glenn Gudino M.D. [id number] EGFR 30 mL/min/1.73 m2 Low >=60 [facility] Comment on above: Order Comment: [facility] has implemented the eGFR calculation approach that does not have a coefficient for race that conforms to the NKF-ASN Task Force Recommendations. Result Comment: Joi mated GFR was calculated using the 2020 CKD-EPI creatinine equation. Performed By: #### 4 6126 ####[facility] [address] [place], [place] [address] Glenn Gudino M.D. [id number] Glucose [Mass/Vol] 83 mg/dL Normal 65-99 [facility] Comment on above: Order Comment: [facility] has implemented the eGFR calculation approach that does not have a coefficient for race that conforms to the NKF-ASN Task Force Recommendations. Performed By: #### 4 6126 ####[facility] [address] [place] [address] Glenn Gudino M.D. [id number] HCO3 (Bld) [Moles/Vol] 20 mmol/L Low 21-32 [facility] Comment on above: Order Comment: [facility] has implemented the eGFR calculation approach that does not have a coefficient for race that conforms to the NKF-ASN Task Force Recommendations. Performed By: #### 4 6126 ####[facility] [address] [place] [address] Glenn Gudino M.D. [id number] Potassium [Moles/Vol] 4.5 mmol/L Normal 3.5-5.1 [facility] Comment on above: Order Comment: [facility] has implemented the eGFR calculation approach that does not have a coefficient for race that conforms to the NKF-ASN Task Force Recommendations. Performed By: #### 4 6126 ####[facility] [address] [place], [place] [address] Glenn Gudino M.D. [id number] Protein [Mass/Vol] 6.7 g/dL Normal 6.0-8.0 [facility] Comment on above: Order Comment: [facility] has implemented the eGFR calculation approach that does not have a coefficient for race that conforms to the NKF-ASN Task Force Recommendations. Performed By: #### 4 6126 ####[facility] [address] [place], [place] [address] Glenn Gudino M.D. [id number] Sodium [Moles/Vol] 132 mmol/L Low 135-145 [facility] Comment on above: Order Comment: [facility] has implemented the eGFR calculation approach that does not have a coefficient for race that conforms to the NKF-ASN Task Force Recommendations. Performed By: #### 4 6126 ####[facility] [address] [place], [place] [address] Glenn Gudino M.D. [id number] Urea nitrogen [Mass/Vol] 33 mg/dL High 8-25 [facility] Comment on above: Order Comment: [facility] has implemented the eGFR calculation approach that does not have a coefficient for race that conforms to the NKF-ASN Task Force Recommendations. Performed By: #### 4 6126 ####[facility] [address] [place], [place] [address] Glenn Gudino M.D. [id number] Urea nitrogen/Creatinine [Mass ratio] 17.6 mg/mg Normal 10.0-20.0 [facility] Comment on above: Order Comment: [facility] has implemented the eGFR calculation approach that does not have a coefficient for race that conforms to the NKF-ASN Task Force Recommendations. Performed By: #### 4 6126 ####[facility] [address] [place], [place] [address] Glenn Gudino M.D. [id number] CONSULTon 01-24-2024 CONSULT [facility] ELUTIONARC-WAAon 01-24-2024 ELUTIONARC-WAA [facility] Comment on above: Performed By: #### E LUARC_WAA ####PENDING SALE TO [facility] [address] [place], [place] [id number] Nurys Oneill MD [id number] RMHTS FIBRINOGENon 01-24-2024 FIBRINOGEN LEVEL 302 mg/dL Normal 224-483 [facility] Comment on above: Performed By: #### 4 5616 ####[facility] [address] [place] [address] Glenn Gudino M.D. [id number] LACTIC ACID, PLASMAon 2023 LACTIC ACID, PLASMA 5.3 mmol/L Off scale high 0.6-2.0 [facility] Comment on above: Performed By: #### 4 6053 ####[facility] [address] [place] [address] Glenn Gudino M.D. [id number] MAGNESIUM LEVELon 01-24-2024 Magnesium [Mass/Vol] 1.3 mg/dL Low 1.6-2.4 [facility] Comment on above: Performed By: #### 4 6109 ####[facility] [address] [place] [address] Glenn Gudino M.D. [id number] MULTI CRAFT MAINTENANCE TECHNICIAN AEROBIC AND A NAEROBIC CULTUREon 01-24-2024 MULTI CRAFT MAINTENANCE TECHNICIAN AEROBIC AND ANAEROBIC CULTURE CULTURE No Growth after 5 days GRAM STAIN RESULT Many RBC Many WBC No Organisms Seen Normal [facility] Comment on above: Performed By: #### L [id number] ####[facility] [address] [place] [address] Glenn Gudino M.D. [id number] MULTI CRAFT MAINTENANCE TECHNICIAN AFB CULTUREon 01-24-2024 MULTI CRAFT MAINTENANCE TECHNICIAN AFB CULTURE AFB CULTURE No Growth of Acid Fast Bacilli after 8 Weeks AFB STAIN (2018) No Acid Fast Bacilli Seen Normal [facility] Comment on above: Performed By: #### L [id number] ####[facility] [address] [place] [address] Glenn Gudino M.D. [id number] MULTI CRAFT MAINTENANCE TECHNICIAN FUNGUS CULTUR Tim 01-24-2024 MULTI CRAFT MAINTENANCE TECHNICIAN FUNGUS CULTURE FUNGUS CULTURE No Fungus Isolated At 4 Weeks FUNGAL SMEAR No Fungal or Yeast Elements Normal [facility] Comment on above: Performed By: #### L [id number] ####[facility] [address] [place], [place] [address] Glenn Gudino M.D. [id number] OP NOTEon 01-24-2024 OP NOTE Normal [facility] OP NOTE Normal [facility] PERIPHERAL SMEAR REVIEW (KETAN HS ONLY)on 01-24-2024 SMEAR REVIEW See Comment Normal [facility] Comment on above: Result Comment: Smea r reviewed for possible immature cells. Performed By: #### C [id number] ####[facility] [address] [place] [address] Glenn Gudino M.D. [id number] PHOSPHORUSon 01-24-2024 Phosphate [Mass/Vol] 4.7 mg/dL High 2.8-4.1 [facility] Comment on above: Performed By: #### 4 6299 ####[facility] [address] [place], [place] [address] Glenn Gudino M.D. [id number] POC ABG SURG - RALSon 2023 BASE EXCESS, ARTERIAL ISTAT -11 Low -2-2 [facility] Comment on above: Order Comment: Criti cherrie result acted upon time of test. Test performed at bedside. Performed By: #### 4 [id number] ####[facility] [address] [place] [address] [id number] RM[facility] Glucose [Mass/Vol] 267 mg/dL High 65-99 [facility] Comment on above: Order Comment: Criti cherrie result acted upon time of test. Test performed at bedside. Performed By: #### 4 [id number] ####[facility] [address] [place] [address] [id number] [facility] HCO3 (Bld) [Moles/Vol] 14.4 mmol/L Low 22.0-26.0 [facility] Comment on above: Order Comment: Criti cherrie result acted upon time of test. Test performed at bedside. Performed By: #### 4 [id number] ####[facility] [address] [place] [address] [id number] [facility] Hematocrit (Bld) [Volume fraction] 20 % Low 36-46 [facility] Comment on above: Order Comment: Criti cherrie result acted upon time of test. Test performed at bedside. Performed By: #### 4 [id number] ####[facility] [address] [place] [address] [id number] [facility] Hemoglobin (Bld) [Mass/Vol] 6.8 g/dL Off scale low 12.0-16.0 [facility] Comment on above: Order Comment: Criti cherrie result acted upon time of test. Test performed at bedside. Performed By: #### 4 [id number] ####[facility] [address] [place] [address] [id number] [facility] Oxygen saturation in Blood 100.0 % High 92.0-99.0 [facility] Comment on above: Order Comment: Criti cherrie result acted upon time of test. Test performed at bedside. Performed By: #### 4 [id number] ####[facility] [address] [place] [address] [id number] [facility] PCO2 ARTERIAL 31.2 mm Hg Low 35.0-45.0 [facility] Comment on above: Order Comment: Criti cherrie result acted upon time of test. Test performed at bedside. Performed By: #### 4 [id number] ####[facility] [address] [place] [address] [id number] [facility] PH ARTERIAL 7.27 Low 7.35-7.45 [facility] Comment on above: Order Comment: Criti cherrie result acted upon time of test. Test performed at bedside. Performed By: #### 4 8756 ####[facility] [address] [place] [address] [id number] [facility] PO2 ARTERIAL 464 mm Hg High 80-100 [facility] Comment on above: Order Comment: Criti cherrie result acted upon time of test. Test performed at bedside. Performed By: #### 4 8782 ####[facility] [address] [place] [address] [id number] [facility] POC IONIZED CALCIUM 3.5 mg/dL Low 4.5-5.3 [facility] Comment on above: Order Comment: Criti cherrie result acted upon time of test. Test performed at bedside. Performed By: #### 4 [id number] ####[facility] [address] [place] [address] [id number] [facility] Potassium [Moles/Vol] 3.9 mmol/L Normal 3.5-5.1 [facility] Comment on above: Order Comment: Criti cherrie result acted upon time of test. Test performed at bedside. Performed By: #### 4 [id number] ####[facility] [address] [place] [address] [id number] [facility] Sodium [Moles/Vol] 140 mmol/L Normal 135-145 [facility] Comment on above: Order Comment: Criti cherrie result acted upon time of test. Test performed at bedside. Performed By: #### 4 9343 ####[facility] [address] [place] [address] [id number] [facility] BASE EXCESS, ARTERIAL ISTAT -12 Low -2-2 [facility] Comment on above: Performed By: #### 4 4559 ####[facility] [address] [place] [address] [id number] [facility] Glucose [Mass/Vol] 164 mg/dL High 65-99 [facility] Comment on above: Performed By: #### 4 4248 ####[facility] [address] [place] [address] [id number] [facility] HCO3 (Bld) [Moles/Vol] 14.8 mmol/L Low 22.0-26.0 [facility] Comment on above: Performed By: #### 4 0316 ####[facility] [address] [place] [address] [id number] [facility] Hematocrit (Bld) [Volume fraction] 32 % Low 36-46 [facility] Comment on above: Performed By: #### 4 [id number] ####[facility] [address] [place] [address] [id number] [facility] Hemoglobin (Bld) [Mass/Vol] 10.9 g/dL Low 12.0-16.0 [facility] Comment on above: Performed By: #### 4 [id number] ####[facility] [address] [place] [address] [id number] [facility] Oxygen saturation in Blood 100.0 % High 92.0-99.0 [facility] Comment on above: Performed By: #### 4 [id number] ####[facility] [address] [place] [address] [id number] [facility] PCO2 ARTERIAL 36.0 mm Hg Normal 35.0-45.0 [facility] Comment on above: Performed By: #### 4 [id number] ####[facility] [address] [place] [address] [id number] [facility] PH ARTERIAL 7.22 Low 7.35-7.45 [facility] Comment on above: Performed By: #### 4 8737 ####[facility] [address] [place] [address] [id number] [facility] PO2 ARTERIAL 444 mm Hg High 80-100 [facility] Comment on above: Performed By: #### 4 8437 ####[facility] [address] [place] [address] [id number] [facility] POC IONIZED CALCIUM 3.7 mg/dL Low 4.5-5.3 [facility] Comment on above: Performed By: #### 4 0752 ####[facility] [address] [place] [address] [id number] [facility] Potassium [Moles/Vol] 4.6 mmol/L Normal 3.5-5.1 [facility] Comment on above: Performed By: #### 4 [id number] ####[facility] [address] [place] [address] [id number] [facility] Sodium [Moles/Vol] 135 mmol/L Normal 135-145 [facility] Comment on above: Performed By: #### 4 [id number] ####[facility] [address] [place] [address] [id number] [facility] POC ACTIVATED CLOTTING TIME - [facility] 01-24-2024 POC ACT KAOLIN 274 seconds Normal [facility] Comment on above: Performed By: #### 4 8122 ####[facility] [address] [place] [address] [id number] [facility] POC ARTERIAL BLOOD GAS PANEL -PULM - [facility] 01-24-2024 BASE EXCESS, ARTERIAL -11.8 Low -2.0-2.0 [facility] Comment on above: Order Comment: Criti cherrie result acted upon time of test. Test performed at bedside. Performed By: #### 4 [id number] ####[facility] [address] [place] [address] [id number] [facility] CALCIUM IONIZED 4.4 mg/dL Low 4.5-5.3 [facility] Comment on above: Order Comment: Criti cherrie result acted upon time of test. Test performed at bedside. Performed By: #### 4 [id number] ####[facility] [address] [place] [address] [id number] [facility] CARBOXYHEMOGLOBIN 1.5 % of total Hb Normal <=1.5 [facility] Comment on above: Order Comment: Criti cherrie result acted upon time of test. Test performed at bedside. Result Comment: Refe rence Ranges:Suburban Non-smokers: <1.5%Smokers: 1.5-5.0%Heavy Smokers: 5.0-9.0% Performed By: #### 4 [id number] ####[facility] [address] [place] [address] [id number] [facility] Chloride [Moles/Vol] 115 mmol/L High 98-108 [facility] Comment on above: Order Comment: Criti cherrie result acted upon time of test. Test performed at bedside. Performed By: #### 4 [id number] ####[facility] [address] [place] [address] [id number] [facility] FIO2 30 Normal [facility] Comment on above: Order Comment: Criti cherrie result acted upon time of test. Test performed at bedside. Performed By: #### 4 [id number] ####[facility] [address] [place] [address] [id number] [facility] Glucose [Mass/Vol] 120 mg/dL High 65-99 [facility] Comment on above: Order Comment: Criti cherrie result acted upon time of test. Test performed at bedside. Performed By: #### 4 [id number] ####[facility] [address] [place] [address] [id number] [facility] HCO3 (Bld) [Moles/Vol] 13.9 mmol/L Low 22.0-26.0 [facility] Comment on above: Order Comment: Criti cherrie result acted upon time of test. Test performed at bedside. Performed By: #### 4 [id number] ####[facility] [address] [place] [address] [id number] [facility] Hematocrit (Bld) [Volume fraction] 34.5 % Low 36.0-46.0 [facility] Comment on above: Order Comment: Criti cherrie result acted upon time of test. Test performed at bedside. Performed By: #### 4 [id number] ####[facility] [address] [place] [address] [id number] [facility] Hemoglobin (Bld) [Mass/Vol] 11.3 g/dL Low 12.0-16.0 [facility] Comment on above: Order Comment: Criti cherrie result acted upon time of test. Test performed at bedside. Performed By: #### 4 [id number] ####[facility] [address] [place] [address] [id number] [facility] LACTIC ACID, WHOLE BLOOD 5.2 mmol/L Off scale high 0.6-2.0 [facility] Comment on above: Order Comment: Criti cherrie result acted upon time of test. Test performed at bedside. Performed By: #### 4 [id number] ####[facility] [address] [place] [address] [id number] [facility] METHEMOGLOBIN < Normal 0.0-2.0 [facility] Comment on above: Order Comment: Criti cherrie result acted upon time of test. Test performed at bedside. Performed By: #### 4 [id number] ####[facility] [address] [place] [address] [id number] [facility] O2HB 92.3 % Low 94.0-98.0 [facility] Comment on above: Order Comment: Criti cherrie result acted upon time of test. Test performed at bedside. Performed By: #### 4 [id number] ####[facility] [address] [place] [address] [id number] [facility] Oxygen saturation in Blood 94.1 % Normal 92.0-99.0 [facility] Comment on above: Order Comment: Criti cherrie result acted upon time of test. Test performed at bedside. Performed By: #### 4 [id number] ####[facility] [address] [place] [address] [id number] [facility] PCO2 ARTERIAL 30.3 mm Hg Low 35.0-45.0 [facility] Comment on above: Order Comment: Criti cherrie result acted upon time of test. Test performed at bedside. Performed By: #### 4 [id number] ####[facility] [address] [place] [address] [id number] [facility] PEEP RAD 5 Normal [facility] Comment on above: Order Comment: Criti cherrie result acted upon time of test. Test performed at bedside. Performed By: #### 4 [id number] ####[facility] [address] [place] [address] [id number] [facility] PH ARTERIAL 7.27 Low 7.35-7.45 [facility] Comment on above: Order Comment: Criti cherrie result acted upon time of test. Test performed at bedside. Performed By: #### 4 [id number] ####[facility] [address] [place] [address] [id number] [facility] PO2 ARTERIAL 76 mm Hg Low 80-100 [facility] Comment on above: Order Comment: Criti cherrie result acted upon time of test. Test performed at bedside. Performed By: #### 4 [id number] ####[facility] [address] [place] [address] [id number] [facility] Potassium [Moles/Vol] 4.6 mmol/L Normal 3.5-5.1 [facility] Comment on above: Order Comment: Criti cherrie result acted upon time of test. Test performed at bedside. Performed By: #### 4 [id number] ####[facility] [address] [place] [address] [id number] [facility] RESP RATE RAD 22 Normal [facility] Comment on above: Order Comment: Criti cherrie result acted upon time of test. Test performed at bedside. Performed By: #### 4 [id number] ####[facility] [address] [place] [address] [id number] [facility] RESULT NOTIFICATION Critical results giv en to:[id number] [facility] Comment on above: Order Comment: Criti cherrie result acted upon time of test. Test performed at bedside. Performed By: #### 4 [id number] ####[facility] [address] [place] [address] [id number] [facility] Sodium [Moles/Vol] 134 mmol/L Low 135-145 [facility] Comment on above: Order Comment: Criti cherrie result acted upon time of test. Test performed at bedside. Performed By: #### 4 [id number] ####[facility] [address] [place] [address] [id number] [facility] Glucose [Mass/Vol] 154 mg/dL High 65-99 [facility] Comment on above: Performed By: #### 4 6932 ####[facility] [address] [place] [address] [id number] [facility] Glucose [Mass/Vol] 122 mg/dL High 65-99 [facility] Comment on above: Performed By: #### 4 6932 ####[facility] [address] [place] [address] [id number] [facility] POTASSIUM LEVELon 01-24-2024 Potassium [Moles/Vol] 4.7 mmol/L Normal 3.5-5.1 [facility] Comment on above: Performed By: #### 4 6351 ####[facility] [address] [place] [address] Glenn Gudino M.D. [id number] PT/INRon 01-24-2024 INR Coag (PPP) [Relative time] 1.4 {INR} High 0.8-1.1 [facility] Comment on above: Order Comment: Jennifer retana the induction phase of oral anticoagulation, the INR may not reflect the anticoagulation status of the patient. Therapeutic ranges for INR's are:Most clinical situations: INR 2.0-3.0Mechanical Prosthetic Valve: INR 2.5-3.5Critical: INR >5.0 Performed By: #### 4 6391 ####[facility] [address] [place] [address] Glenn Gudino M.D. [id number] PT Coag (PPP) [Time] 17.5 s High 11.8-14.3 [facility] Comment on above: Order Comment: Jennifer retana the induction phase of oral anticoagulation, the INR may not reflect the anticoagulation status of the patient. Therapeutic ranges for INR's are:Most clinical situations: INR 2.0-3.0Mechanical Prosthetic Valve: INR 2.5-3.5Critical: INR >5.0 Performed By: #### 4 6391 ####[facility] [address] [place] [address] Glenn Gudino M.D. [id number] INR Coag (PPP) [Relative time] 1.6 {INR} High 0.8-1.1 [facility] Comment on above: Order Comment: Jennifer retana the induction phase of oral anticoagulation, the INR may not reflect the anticoagulation status of the patient. Therapeutic ranges for INR's are:Most clinical situations: INR 2.0-3.0Mechanical Prosthetic Valve: INR 2.5-3.5Critical: INR >5.0 Result Comment: Resu lts checked. Performed By: #### 4 6391 ####[facility] [address] [place] [address] Glenn Gudino M.D. [id number] PT Coag (PPP) [Time] 19.5 s High 11.8-14.3 [facility] Comment on above: Order Comment: Jennifer retana the induction phase of oral anticoagulation, the INR may not reflect the anticoagulation status of the patient. Therapeutic ranges for INR's are:Most clinical situations: INR 2.0-3.0Mechanical Prosthetic Valve: INR 2.5-3.5Critical: INR >5.0 Result Comment: Resu lts checked. Performed By: #### 4 [id number] ####[facility] [address] [place] [address] Glenn Gudino M.D. [id number] INR Coag (PPP) [Relative time] 1.1 {INR} Normal 0.8-1.1 [facility] Comment on above: Order Comment: Jennifer g the induction phase of oral anticoagulation, the INR may not reflect the anticoagulation status of the patient. Therapeutic ranges for INR's are:Most clinical situations: INR 2.0-3.0Mechanical Prosthetic Valve: INR 2.5-3.5Critical: INR >5.0 Performed By: #### 4 6391 ####[facility] [address] [place] [address] Glenn Gudino M.D. [id number] PT Coag (PPP) [Time] 13.6 s Normal 11.8-14.3 [facility] Comment on above: Order Comment: Jennifer mazin the induction phase of oral anticoagulation, the INR may not reflect the anticoagulation status of the patient. Therapeutic ranges for INR's are:Most clinical situations: INR 2.0-3.0Mechanical Prosthetic Valve: INR 2.5-3.5Critical: INR >5.0 Performed By: #### 4 6391 ####[facility] [address] [place] [address] Glenn Gudino M.D. [id number] REFLEX LACTIC ACID, PLASMAon 01-24-2024 LACTIC ACID, PLASMA 2.0 mmol/L Normal 0.6-2.0 [facility] Comment on above: Performed By: #### L [id number] ####[facility] [address] [place], [place] [address] Glenn Gudino M.D. [id number] TISSUE AEROBIC AND ANAEROBIC CULTUREon 01-24-2024 TISSUE AEROBIC AND ANAEROBIC CULTURE CULTURE No Growth after 5 days GRAM STAIN RESULT Many RBC Few WBC No Organisms Seen Normal [facility] Comment on above: Performed By: #### 4 4274 ####[facility] [address] [place], [place] [id number] Glenn Gudino M.D. [id number] TISSUE AFB CULTUREon 024 TISSUE AFB CULTURE AFB CULTURE No Growth of Acid Fast Bacilli after 8 Weeks AFB STAIN (2018) No Acid Fast Bacilli Seen Normal [facility] Comment on above: Performed By: #### 4 4273 ####[facility] [address] [place] [address] Glenn Gudino M.D. [id number] TISSUE FUNGUS CULTUREon 12-28 TISSUE FUNGUS CULTURE FUNGUS CULTURE No Fungus Isolated At 4 Weeks FUNGAL SMEAR No Fungal or Yeast Elements Normal [facility] Comment on above: Performed By: #### 4 4275 ####[facility] [address] [place], [place] [address] Glenn Gudino M.D. [id number] TRANSFUSION CONSULTon 2023 TRANSFUSION CONSULT [facility] Comment on above: Performed By: #### 4 8080 ####[facility] [address] [place] [address] Glenn Gudino M.D. [id number] TRIGLYCERIDESon 01-24-2024 Triglyceride [Mass/Vol] 72 mg/dL Normal 30-150 [facility] Comment on above: Result Comment: Lucila onal Cholesterol Education Program Guidelines: TriglycerideNormal: <150 mg/dLBorderline High: 150-199 mg/dLHigh: 200-499 mg/dLVery High: greater than or equal to 500 mg/dL Performed By: #### 4 6606 ####[facility] [address] [place] [address] Glenn Gudino M.D. [id number] TYPE AND SCREENon 01-24-2024 TYPE AND SCREEN ABORH: O Positive AB SCREEN: Positive EXPIRATION DATE: 01/27/2024 23:59 EST [facility] Comment on above: Performed By: #### 4 6619 ####[facility]END[facility] TO [facility] [address] [place] [address] Nurys Oneill MD [id number] RMHTS XR ABDOMEN /KUB/FLAT PLATE/1 VIEWon 01-24-2024 XR ABDOMEN /KUB/FLAT PLATE/1 VIEW [facility] Comment on above: Order Comment: Injur y/Trauma or Illness?:Illness/OtherHow long have you had these symptoms (acute/chronic)?:UnknownReason for exam?:NG/OG tube placementHistory of cancer?:uSurgeries, chemotherapy, or radiation?:uType of Exam?:UnknownAdditional signs and symptoms?:. XR CHEST PA/APon 01-24-2024 XR CHEST PA/AP [facility] Comment on above: Order Comment: Injur y/Trauma or Illness?:Illness/OtherHow long have you had these symptoms (acute/chronic)?:UnknownReason for exam?:ettHistory of cancer?:uSurgeries, chemotherapy, or radiation?:uType of Exam?:InitialAdditional signs and symptoms?:no XR CHEST PA/AP [facility] Comment on above: Order Comment: Injur y/Trauma or Illness?:Illness/OtherHow long have you had these symptoms (acute/chronic)?:UnknownReason for exam?:intubatedHistory of cancer?:uSurgeries, chemotherapy, or radiation?:uType of Exam?:UnknownAdditional signs and symptoms?:. ANTIBODY IDENTIFICATION-Con 01-23-2024 ANTIBODY IDENTIFICATION-C [facility] Comment on above: Performed By: #### 4 6427_Anti-C ####[facility]ENDING S[facility] TO [facility] [address] [address] Nurys Oneill MD [id number] RMHTS ANTIBODY IDENTIFICATION-FYAo n 01-23-2024 ANTIBODY IDENTIFICATION-FYA [facility] Comment on above: Performed By: #### 4 6427_Anti-Fya ####PENDING S[facility] TO [facility] [address] [address] Nurys Oneill MD [id number] RMS ANTIBODY IDENTIFICATION-WAAo n 01-23-2024 ANTIBODY IDENTIFICATION-WAA [facility] Comment on above: Performed By: #### 4 6427_WAA ####PENDING S[facility] TO [facility] [address] Nurys Oneill MD [id number] RMHTS ANTIBODY IDENTIFICATION-WAA [facility] Comment on above: Performed By: #### 4 6427_WAA ####PENDING S[facility] TO [facility] [address] [place] [address] Nurys Oneill MD [id number] RMHTS C PATIENT ANTIGEN TYPINGon 0 01-23-2024 C PATIENT ANTIGEN TYPING Negative [facility] Comment on above: Performed By: #### P -C ####[facility]END[facility] S[facility] [address] [place] [address] Nurys Oneill MD [id number] RMHTS CBCon 01-23-2024 AUTO NRBC 0.0 % [facility] Comment on above: Performed By: #### 4 [id number] ####[facility] [address] [place], [place] [address] Glenn Gudino M.D. [id number] AUTO NRBC ABS COUNT 0.00 K/mcL Normal 0.00-0.00 [facility] Comment on above: Performed By: #### 4 [id number] ####[facility] [address] [place] [address] Glenn Gudino M.D. [id number] Erythrocyte distribution width (RBC) [Ratio] 18.8 % High 11.6-14.8 [facility] Comment on above: Performed By: #### 4 7618 ####[facility] [address] [place] [address] Glenn Gudino M.D. [id number] Hematocrit (Bld) [Volume fraction] 27.3 % Low 36.0-46.0 [facility] Comment on above: Performed By: #### 4 [id number] ####[facility] [address] [place] [address] Glenn Gudino M.D. [id number] Hemoglobin (Bld) [Mass/Vol] 8.7 g/dL Low 12.0-16.0 [facility] Comment on above: Performed By: #### 4 [id number] ####[facility] [address] [place] [address] Glenn Gudino M.D. [id number] MCH (RBC) [Entitic mass] 27.7 pg Normal 26.0-34.0 [facility] Comment on above: Performed By: #### 4 1118 ####[facility] [address] [place] [address] Glenn Gudino M.D. [id number] MCV (RBC) [Entitic vol] 86.9 fL Normal 80.0-100.0 [facility] Comment on above: Performed By: #### 4 1618 ####[facility] [address] [place] [address] Glenn Gudino M.D. [id number] MEAN CORPUSCULAR HEMOGLOBIN CONC 31.9 g/dL Normal 31.0-37.0 [facility] Comment on above: Performed By: #### 4 [id number] ####[facility] [address] [place] [address] Glenn Gudino M.D. [id number] Platelet mean volume (Bld) [Entitic vol] 9.0 fL Low 9.4-12.4 [facility] Comment on above: Performed By: #### 4 [id number] ####[facility] [address] [place] [address] Glenn Gudino M.D. [id number] Platelets (Bld) [#/Vol] 209 10*3/uL Normal 150-400 [facility] Comment on above: Performed By: #### 4 [id number] ####[facility] [address] [place] [address] Glenn Gudino M.D. [id number] RBC (Bld) [#/Vol] 3.14 10*6/uL Low 4.00-5.20 [facility] Comment on above: Performed By: #### 4 [id number] ####[facility] [address] [place] [address] Glenn Gudino M.D. [id number] WBC (Bld) [#/Vol] 7.25 10*3/uL Normal 4.50-11.00 [facility] Comment on above: Performed By: #### 4 [id number] ####[facility] [address] [place] [address] Glenn Gudino M.D. [id number] COMPLEMENT DIRECT ANTIGLOBUL IN TESTon 01-23-2024 COMPLEMENT DIRECT ANTIGLOBULIN TEST Negative Normal [facility] Comment on above: Performed By: #### 4 6847 ####[facility]ENDING S[facility] [address] [place] [address] Nurys Oneill MD [id number] RMHTS COMPLEMENT DIRECT ANTIGLOBULIN TEST Negative Normal [facility] Comment on above: Performed By: #### 4 6847 ####PENDING S[facility] [address] [place] [address] Nurys Oneill MD [id number] RMHTS COMPREHENSIVE METABOLIC PANE Magdaleno 01-23-2024 Albumin [Mass/Vol] 2.7 g/dL Low 3.2-5.2 [facility] Comment on above: Order Comment: [facility] has implemented the eGFR calculation approach that does not have a coefficient for race that conforms to the NKF-ASN Task Force Recommendations. Performed By: #### 4 6126 ####[facility] [address] [place] [address] Glenn Gudino M.D. [id number] ALP [Catalytic activity/Vol] 74 U/L Normal 40-150 [facility] Comment on above: Order Comment: [facility] has implemented the eGFR calculation approach that does not have a coefficient for race that conforms to the NKF-ASN Task Force Recommendations. Performed By: #### 4 6126 ####[facility] [address] [place] [address] Glenn Gudino M.D. [id number] ALT [Catalytic activity/Vol] 10 U/L Normal 0-35 U/L [facility] Comment on above: Order Comment: [facility] has implemented the eGFR calculation approach that does not have a coefficient for race that conforms to the NKF-ASN Task Force Recommendations. Performed By: #### 4 6126 ####[facility] [address] [place], [place] [address] Glenn Gudino M.D. [id number] Anion gap [Moles/Vol] 15 mmol/L Normal 10-20 [facility] Comment on above: Order Comment: [facility] has implemented the eGFR calculation approach that does not have a coefficient for race that conforms to the NKF-ASN Task Force Recommendations. Performed By: #### 4 6126 ####[facility] [address] [place] [address] Glenn Gudino M.D. [id number] AST [Catalytic activity/Vol] 23 U/L Normal 0-35 U/L [facility] Comment on above: Order Comment: [facility] has implemented the eGFR calculation approach that does not have a coefficient for race that conforms to the NKF-ASN Task Force Recommendations. Performed By: #### 4 6126 ####[facility] [address] [place], [place] [address] Glenn Gudino M.D. [id number] Bilirubin [Mass/Vol] 0.2 mg/dL Normal 0.0-1.3 [facility] Comment on above: Order Comment: [facility] has implemented the eGFR calculation approach that does not have a coefficient for race that conforms to the NKF-ASN Task Force Recommendations. Performed By: #### 4 6126 ####[facility] [address] [place] [address] Glenn Gudino M.D. [id number] Calcium [Mass/Vol] 8.2 mg/dL Low 8.4-10.2 [facility] Comment on above: Order Comment: [facility] has implemented the eGFR calculation approach that does not have a coefficient for race that conforms to the NKF-ASN Task Force Recommendations. Performed By: #### 4 6126 ####[facility] [address] [place] [address] Glenn Gudino M.D. [id number] Chloride [Moles/Vol] 101 mmol/L Normal 98-108 [facility] Comment on above: Order Comment: [facility] has implemented the eGFR calculation approach that does not have a coefficient for race that conforms to the NKF-ASN Task Force Recommendations. Performed By: #### 4 6126 ####[facility] [address] [place] [address] Glenn Gudino M.D. [id number] Creatinine [Mass/Vol] 1.99 mg/dL High 0.60-1.10 [facility] Comment on above: Order Comment: [facility] has implemented the eGFR calculation approach that does not have a coefficient for race that conforms to the NKF-ASN Task Force Recommendations. Performed By: #### 4 6126 ####[facility] [address] [place] [address] Glenn Gudino M.D. [id number] EGFR 28 mL/min/1.73 m2 Low >=60 [facility] Comment on above: Order Comment: [facility] has implemented the eGFR calculation approach that does not have a coefficient for race that conforms to the NKF-ASN Task Force Recommendations. Result Comment: Joi mated GFR was calculated using the 2020 CKD-EPI creatinine equation. Performed By: #### 4 6126 ####[facility] [address] [place] [address] Glenn Gudino M.D. [id number] Glucose [Mass/Vol] 85 mg/dL Normal 65-99 [facility] Comment on above: Order Comment: [facility] has implemented the eGFR calculation approach that does not have a coefficient for race that conforms to the NKF-ASN Task Force Recommendations. Performed By: #### 4 6126 ####[facility] [address] [place] [address] Glenn Gudino M.D. [id number] HCO3 (Bld) [Moles/Vol] 19 mmol/L Low 21-32 [facility] Comment on above: Order Comment: [facility] has implemented the eGFR calculation approach that does not have a coefficient for race that conforms to the NKF-ASN Task Force Recommendations. Performed By: #### 4 6126 ####[facility] [address] [place], [place] [address] Glenn Gudino M.D. [id number] Potassium [Moles/Vol] 4.6 mmol/L Normal 3.5-5.1 [facility] Comment on above: Order Comment: [facility] has implemented the eGFR calculation approach that does not have a coefficient for race that conforms to the NKF-ASN Task Force Recommendations. Performed By: #### 4 6126 ####[facility] [address] [place], [place] [address] Glenn Gudino M.D. [id number] Protein [Mass/Vol] 6.5 g/dL Normal 6.0-8.0 [facility] Comment on above: Order Comment: [facility] has implemented the eGFR calculation approach that does not have a coefficient for race that conforms to the NKF-ASN Task Force Recommendations. Performed By: #### 4 6126 ####[facility] [address] [place], [place] [address] Glenn Gudino M.D. [id number] Sodium [Moles/Vol] 130 mmol/L Low 135-145 [facility] Comment on above: Order Comment: [facility] has implemented the eGFR calculation approach that does not have a coefficient for race that conforms to the NKF-ASN Task Force Recommendations. Performed By: #### 4 6126 ####[facility] [address] [place] [address] Glenn Gudino M.D. [id number] Urea nitrogen [Mass/Vol] 36 mg/dL High 8-25 [facility] Comment on above: Order Comment: [facility] has implemented the eGFR calculation approach that does not have a coefficient for race that conforms to the NKF-ASN Task Force Recommendations. Performed By: #### 4 6126 ####[facility] [address] [place] [address] Glenn Gudino M.D. [id number] Urea nitrogen/Creatinine [Mass ratio] 18.1 mg/mg Normal 10.0-20.0 [facility] Comment on above: Order Comment: [facility] has implemented the eGFR calculation approach that does not have a coefficient for race that conforms to the NKF-ASN Task Force Recommendations. Performed By: #### 4 6126 ####[facility] [address] [place] [address] Glenn Gudino M.D. [id number] ELUTION-WAAon 01-23-2024 ELUTION-WAA [facility] Comment on above: Performed By: #### 4 6426_WAA ####[facility]ENDING S[facility] [address] [place] [address] Nurys Oneill MD [id number] RMHTS GIGGon 01-23-2024 GIGG Positive [facility] Comment on above: Performed By: #### G IGG ####PENDING S[facility] [address] [place] [address] Nurys Oneill MD [id number] RMHTS GIGG Positive [facility] Comment on above: Performed By: #### G IGG ####PENDING S[facility] [address] [place] [address] Nurys Oneill MD [id number] [facility] LITTLE C PATIENT ANTIGEN TYP ING (STX)on 01-23-2024 LITTLE C PATIENT ANTIGEN TYPING (STX) Positive [facility] Comment on above: Performed By: #### P -Little c ####PENDING S[facility] [address] [place] [address] Nurys Oneill MD [id number] [facility] PT/INRon 01-23-2024 INR Coag (PPP) [Relative time] 1.0 {INR} Normal 0.8-1.1 [facility] Comment on above: Order Comment: Jennifer retana the induction phase of oral anticoagulation, the INR may not reflect the anticoagulation status of the patient. Therapeutic ranges for INR's are:Most clinical situations: INR 2.0-3.0Mechanical Prosthetic Valve: INR 2.5-3.5Critical: INR >5.0 Performed By: #### 4 6391 ####[facility] [address] [place] [address] Glenn Gudino M.D. [id number] PT Coag (PPP) [Time] 13.3 s Normal 11.8-14.3 [facility] Comment on above: Order Comment: Jennifer retana the induction phase of oral anticoagulation, the INR may not reflect the anticoagulation status of the patient. Therapeutic ranges for INR's are:Most clinical situations: INR 2.0-3.0Mechanical Prosthetic Valve: INR 2.5-3.5Critical: INR >5.0 Performed By: #### 4 6391 ####[facility] [address] [place] [address] Glenn Gudino M.D. [id number] TYPE AND SCREENon 01-23-2024 TYPE AND SCREEN ABORH: O Positive AB SCREEN: Positive EXPIRATION DATE: 01/26/2024 23:59 [facility] Comment on above: Performed By: #### 4 6619 ####PENDING [facility] [address] [place] [address] Nurys Oneill MD [id number] RMS TYPE AND SCREEN ABORH: O Positive AB SCREEN: Positive EXPIRATION DATE: 01/26/2024 23:59 [facility] Comment on above: Performed By: #### 4 [id number] ####[facility]END[facility] [address] [place] [address] Nurys Oneill MD [id number] RMS APTT HEPARIN COVERAGEon 12-28 aPTT Coag (Bld) [Time] 113 s High 23-34 [facility] Comment on above: Order Comment: Thera peutic range for APTT's is 68 - 104 seconds Performed By: #### 4 6848 ####[facility] [address] [place] [address] Glenn Gudino M.D. [id number] aPTT Coag (Bld) [Time] 100 s High 23-34 [facility] Comment on above: Order Comment: Thera peutic range for APTT's is 68 - 104 secondsResults checked. Performed By: #### 4 [id number] ####[facility] [address] [place] [address] Glenn Gudino M.D. [id number] CBCon 01-22-2024 AUTO NRBC 0.0 % Normal [facility] Comment on above: Order Comment: While on heparin Performed By: #### 4 [id number] ####[facility] [address] [place] [address] Glenn Gudino M.D. [id number] AUTO NRBC ABS COUNT 0.00 K/mcL Normal 0.00-0.00 [facility] Comment on above: Order Comment: While on heparin Performed By: #### 4 [id number] ####[facility] [address] [place] [address] Glenn Gudino M.D. [id number] Erythrocyte distribution width (RBC) [Ratio] 18.7 % High 11.6-14.8 [facility] Comment on above: Order Comment: While on heparin Performed By: #### 4 [id number] ####[facility] [address] [place], [place] [address] Glenn Gudino M.D. [id number] Hematocrit (Bld) [Volume fraction] 29.7 % Low 36.0-46.0 [facility] Comment on above: Order Comment: While on heparin Performed By: #### 4 [id number] ####[facility] [address] [place], [place] [address] Glenn Gudino M.D. [id number] Hemoglobin (Bld) [Mass/Vol] 9.3 g/dL Low 12.0-16.0 [facility] Comment on above: Order Comment: While on heparin Performed By: #### 4 [id number] ####[facility] [address] [place], [place] [address] Glenn Gudino M.D. [id number] MCH (RBC) [Entitic mass] 27.4 pg Normal 26.0-34.0 [facility] Comment on above: Order Comment: While on heparin Performed By: #### 4 [id number] ####[facility] [address] [place] [address] Glenn Gudino M.D. [id number] MCV (RBC) [Entitic vol] 87.6 fL Normal 80.0-100.0 [facility] Comment on above: Order Comment: While on heparin Performed By: #### 4 [id number] ####[facility] [address] [place] [address] Glenn Gudino M.D. [id number] MEAN CORPUSCULAR HEMOGLOBIN CONC 31.3 g/dL Normal 31.0-37.0 [facility] Comment on above: Order Comment: While on heparin Performed By: #### 4 [id number] ####[facility] [address] [place] [address] Glenn Gudino M.D. [id number] Platelet mean volume (Bld) [Entitic vol] 9.0 fL Low 9.4-12.4 [facility] Comment on above: Order Comment: While on heparin Performed By: #### 4 [id number] ####[facility] [address] [place], [place] [address] Glenn Gudino M.D. [id number] Platelets (Bld) [#/Vol] 192 10*3/uL Normal 150-400 [facility] Comment on above: Order Comment: While on heparin Performed By: #### 4 [id number] ####[facility] [address] [place], [place] [address] Glenn Gudino M.D. [id number] RBC (Bld) [#/Vol] 3.39 10*6/uL Low 4.00-5.20 [facility] Comment on above: Order Comment: While on heparin Performed By: #### 4 [id number] ####[facility] [address] [place] [address] Glenn Gudino M.D. [id number] WBC (Bld) [#/Vol] 5.85 10*3/uL Normal 4.50-11.00 [facility] Comment on above: Order Comment: While on heparin Performed By: #### 4 [id number] ####[facility] [address] [place], [place] [address] Glenn Gudino M.D. [id number] COMPREHENSIVE METABOLIC PANE Magdaleno 01-22-2024 Albumin [Mass/Vol] 2.8 g/dL Low 3.2-5.2 [facility] Comment on above: Order Comment: [facility] has implemented the eGFR calculation approach that does not have a coefficient for race that conforms to the NKF-ASN Task Force Recommendations. Performed By: #### 4 6126 ####[facility] [address] [place] [address] Glenn Gudino M.D. [id number] ALP [Catalytic activity/Vol] 75 U/L Normal 40-150 [facility] Comment on above: Order Comment: [facility] has implemented the eGFR calculation approach that does not have a coefficient for race that conforms to the NKF-ASN Task Force Recommendations. Performed By: #### 4 [id number] ####[facility] [address] [place] [address] 08461 Glenn Gudino M.D. [id number] ALT [Catalytic activity/Vol] 10 U/L Normal 0-35 U/L [facility] Comment on above: Order Comment: [facility] has implemented the eGFR calculation approach that does not have a coefficient for race that conforms to the NKF-ASN Task Force Recommendations. Performed By: #### 4 6126 ####[facility] [address] [place] [address] 80917 Glenn Gudino M.D. [id number] Anion gap [Moles/Vol] 16 mmol/L Normal 10-20 [facility] Comment on above: Order Comment: [facility] has implemented the eGFR calculation approach that does not have a coefficient for race that conforms to the NKF-ASN Task Force Recommendations. Performed By: #### 4 6126 ####[facility] [address] [place], [place] [address] Glenn Gudino M.D. [id number] AST [Catalytic activity/Vol] 19 U/L Normal 0-35 U/L [facility] Comment on above: Order Comment: [facility] has implemented the eGFR calculation approach that does not have a coefficient for race that conforms to the NKF-ASN Task Force Recommendations. Performed By: #### 4 6126 ####[facility] [address] [place], [place] [address] Glenn Gudino M.D. [id number] Bilirubin [Mass/Vol] 0.2 mg/dL Normal 0.0-1.3 [facility] Comment on above: Order Comment: [facility] has implemented the eGFR calculation approach that does not have a coefficient for race that conforms to the NKF-ASN Task Force Recommendations. Performed By: #### 4 6126 ####[facility] [address] [place], [place] [address] Glenn Gudino M.D. [id number] Calcium [Mass/Vol] 8.1 mg/dL Low 8.4-10.2 [facility] Comment on above: Order Comment: [facility] has implemented the eGFR calculation approach that does not have a coefficient for race that conforms to the NKF-ASN Task Force Recommendations. Performed By: #### 4 6126 ####[facility] [address] [place], [place] [address] Glenn Gudino M.D. [id number] Chloride [Moles/Vol] 103 mmol/L Normal 98-108 [facility] Comment on above: Order Comment: [facility] has implemented the eGFR calculation approach that does not have a coefficient for race that conforms to the NKF-ASN Task Force Recommendations. Performed By: #### 4 6126 ####[facility] [address] [place], [place] [address] Glenn Gudino M.D. [id number] Creatinine [Mass/Vol] 2.18 mg/dL High 0.60-1.10 [facility] Comment on above: Order Comment: [facility] has implemented the eGFR calculation approach that does not have a coefficient for race that conforms to the NKF-ASN Task Force Recommendations. Performed By: #### 4 6126 ####[facility] [address] [place], [place] [address] Glenn Gudino M.D. [id number] EGFR 25 mL/min/1.73 m2 Low >=60 [facility] Comment on above: Order Comment: [facility] has implemented the eGFR calculation approach that does not have a coefficient for race that conforms to the NKF-ASN Task Force Recommendations. Result Comment: Joi mated GFR was calculated using the 2020 CKD-EPI creatinine equation. Performed By: #### 4 6126 ####[facility] [address] [place] [address] 13442 Glenn Gudino M.D. [id number] Glucose [Mass/Vol] 82 mg/dL Normal 65-99 [facility] Comment on above: Order Comment: [facility] has implemented the eGFR calculation approach that does not have a coefficient for race that conforms to the NKF-ASN Task Force Recommendations. Performed By: #### 4 6126 ####[facility] [address] [place] [address] 11563 Glenn Gudino M.D. [id number] HCO3 (Bld) [Moles/Vol] 21 mmol/L Normal 21-32 [facility] Comment on above: Order Comment: [facility] has implemented the eGFR calculation approach that does not have a coefficient for race that conforms to the NKF-ASN Task Force Recommendations. Performed By: #### 4 6126 ####[facility] [address] [place] [address] 32460 Glenn Gudino M.D. [id number] Potassium [Moles/Vol] 4.6 mmol/L Normal 3.5-5.1 [facility] Comment on above: Order Comment: [facility] has implemented the eGFR calculation approach that does not have a coefficient for race that conforms to the NKF-ASN Task Force Recommendations. Performed By: #### 4 6126 ####[facility] [address] [place] [address] 94708 Glenn Gudino M.D. [id number] Protein [Mass/Vol] 6.7 g/dL Normal 6.0-8.0 [facility] Comment on above: Order Comment: [facility] has implemented the eGFR calculation approach that does not have a coefficient for race that conforms to the NKF-ASN Task Force Recommendations. Performed By: #### 4 6126 ####[facility] [address] [place] [address] 58937 Glenn Gudino M.D. [id number] Sodium [Moles/Vol] 135 mmol/L Normal 135-145 [facility] Comment on above: Order Comment: [facility] has implemented the eGFR calculation approach that does not have a coefficient for race that conforms to the NKF-ASN Task Force Recommendations. Performed By: #### 4 6126 ####[facility] [address] [place] [address] 21205 Glenn Gudino M.D. [id number] Urea nitrogen [Mass/Vol] 38 mg/dL High 8-25 [facility] Comment on above: Order Comment: [facility] has implemented the eGFR calculation approach that does not have a coefficient for race that conforms to the NKF-ASN Task Force Recommendations. Performed By: #### 4 6126 ####[facility] [address] [place] [address] 08686 Glenn Gudino M.D. [id number] Urea nitrogen/Creatinine [Mass ratio] 17.4 mg/mg Normal 10.0-20.0 [facility] Comment on above: Order Comment: [facility] has implemented the eGFR calculation approach that does not have a coefficient for race that conforms to the NKF-ASN Task Force Recommendations. Performed By: #### 4 6126 ####[facility] [address] [place], [place] [address] Glenn Gudino M.D. [id number] CONSULTon 01-22-2024 CONSULT See consult note 12/28 11/19. AUTHENTICATED BY MARY SUBRAMANIAN ON 01/23/2024 07:09:20 Normal [facility] CONSULT Normal [facility] PT/INRon 01-22-2024 INR Coag (PPP) [Relative time] 1.0 {INR} Normal 0.8-1.1 [facility] Comment on above: Order Comment: Jennifer retana the induction phase of oral anticoagulation, the INR may not reflect the anticoagulation status of the patient. Therapeutic ranges for INR's are:Most clinical situations: INR 2.0-3.0Mechanical Prosthetic Valve: INR 2.5-3.5Critical: INR >5.0 Performed By: #### 4 6391 ####[facility] [address] [place] [address] 76405 Glenn Gudino M.D. [id number] PT Coag (PPP) [Time] 13.1 s Normal 11.8-14.3 [facility] Comment on above: Order Comment: Jennifer retana the induction phase of oral anticoagulation, the INR may not reflect the anticoagulation status of the patient. Therapeutic ranges for INR's are:Most clinical situations: INR 2.0-3.0Mechanical Prosthetic Valve: INR 2.5-3.5Critical: INR >5.0 Performed By: #### 4 6391 ####[facility] [address] [place] [address] 63413 Glenn Gudino M.D. [id number] APTT HEPARIN COVERAGEon 12-28 aPTT Coag (Bld) [Time] 66 s High 23-34 [facility] Comment on above: Order Comment: Thera peutic range for APTT's is 68 - 104 seconds Result Comment: Resu lts checked. Performed By: #### 4 6848 ####[facility] [address] [place], [place] [address] Glenn Gudino M.D. [id number] aPTT Coag (Bld) [Time] 84 s High 23-34 [facility] Comment on above: Order Comment: Thera peutic range for APTT's is 68 - 104 secondsResults checked. Performed By: #### 4 [id number] ####[facility] [address] [place], [place] [address] Glenn Gudino M.D. [id number] aPTT Coag (Bld) [Time] 63 s High 23-34 [facility] Comment on above: Order Comment: Thera peutic range for APTT's is 68 - 104 seconds Performed By: #### 4 [id number] ####[facility] [address] [place], [place] [address] Glenn Gudino M.D. [id number] RENAL FUNCTION PANELon 01-20 Albumin [Mass/Vol] 2.7 g/dL Low 3.2-5.2 [facility] Comment on above: Order Comment: [facility] has implemented the eGFR calculation approach that does not have a coefficient for race that conforms to the NKF-ASN Task Force Recommendations. Performed By: #### 4 6449 ####[facility] [address] [place], [place] [address] Glenn Gudino M.D. [id number] Anion gap [Moles/Vol] 15 mmol/L Normal 10-20 [facility] Comment on above: Order Comment: [facility] has implemented the eGFR calculation approach that does not have a coefficient for race that conforms to the NKF-ASN Task Force Recommendations. Performed By: #### 4 6449 ####[facility] [address] [place] [address] 44660 Glenn Gudino M.D. [id number] Calcium [Mass/Vol] 8.1 mg/dL Low 8.4-10.2 [facility] Comment on above: Order Comment: [facility] has implemented the eGFR calculation approach that does not have a coefficient for race that conforms to the NKF-ASN Task Force Recommendations. Performed By: #### 4 6449 ####[facility] [address] [place] [address] 71668 Glenn Gudino M.D. [id number] Chloride [Moles/Vol] 102 mmol/L Normal 98-108 [facility] Comment on above: Order Comment: [facility] has implemented the eGFR calculation approach that does not have a coefficient for race that conforms to the NKF-ASN Task Force Recommendations. Performed By: #### 4 6449 ####[facility] [address] [place] [address] 32334 Glenn Gudino M.D. [id number] Creatinine [Mass/Vol] 1.96 mg/dL High 0.60-1.10 [facility] Comment on above: Order Comment: [facility] has implemented the eGFR calculation approach that does not have a coefficient for race that conforms to the NKF-ASN Task Force Recommendations. Performed By: #### 4 6449 ####[facility] [address] [place] [address] 63060 Glenn Gudino M.D. [id number] EGFR 29 mL/min/1.73 m2 Low >=60 [facility] Comment on above: Order Comment: [facility] has implemented the eGFR calculation approach that does not have a coefficient for race that conforms to the NKF-ASN Task Force Recommendations. Result Comment: Joi mated GFR was calculated using the 2020 CKD-EPI creatinine equation. Performed By: #### 4 6449 ####[facility] [address] [place] [address] 57129 Glenn Gudino M.D. [id number] Glucose [Mass/Vol] 85 mg/dL Normal 65-99 [facility] Comment on above: Order Comment: [facility] has implemented the eGFR calculation approach that does not have a coefficient for race that conforms to the NKF-ASN Task Force Recommendations. Performed By: #### 4 6449 ####[facility] [address] [place] [address] 16294 Glenn Gudino M.D. [id number] HCO3 (Bld) [Moles/Vol] 21 mmol/L Normal 21-32 [facility] Comment on above: Order Comment: [facility] has implemented the eGFR calculation approach that does not have a coefficient for race that conforms to the NKF-ASN Task Force Recommendations. Performed By: #### 4 6449 ####[facility] [address] [place] [address] 26411 Glenn Gudino M.D. [id number] Phosphate [Mass/Vol] 3.9 mg/dL Normal 2.8-4.1 [facility] Comment on above: Order Comment: [facility] has implemented the eGFR calculation approach that does not have a coefficient for race that conforms to the NKF-ASN Task Force Recommendations. Performed By: #### 4 6449 ####[facility] [address] [place] [address] 82697 Glenn Gudino M.D. [id number] Potassium [Moles/Vol] 4.2 mmol/L Normal 3.5-5.1 [facility] Comment on above: Order Comment: [facility] has implemented the eGFR calculation approach that does not have a coefficient for race that conforms to the NKF-ASN Task Force Recommendations. Performed By: #### 4 6449 ####[facility] [address] [place] [address] 60339 Glenn Gudino M.D. [id number] Sodium [Moles/Vol] 134 mmol/L Low 135-145 [facility] Comment on above: Order Comment: [facility] has implemented the eGFR calculation approach that does not have a coefficient for race that conforms to the NKF-ASN Task Force Recommendations. Performed By: #### 4 6449 ####[facility] [address] [place], [place] [address] Glenn Gudino M.D. [id number] Urea nitrogen [Mass/Vol] 34 mg/dL High 8-25 [facility] Comment on above: Order Comment: [facility] has implemented the eGFR calculation approach that does not have a coefficient for race that conforms to the NKF-ASN Task Force Recommendations. Performed By: #### 4 6449 ####[facility] [address] [place] [address] 46758 Glenn Gudino M.D. [id number] Urea nitrogen/Creatinine [Mass ratio] 17.3 mg/mg Normal 10.0-20.0 [facility] Comment on above: Order Comment: [facility] has implemented the eGFR calculation approach that does not have a coefficient for race that conforms to the NKF-ASN Task Force Recommendations. Performed By: #### 4 6449 ####[facility] [address] [place] [address] 46727 Glenn Gudino M.D. [id number] APTT HEPARIN COVERAGEon 12-28 aPTT Coag (Bld) [Time] 53 s High 23-34 [facility] Comment on above: Order Comment: Thera peutic range for APTT's is 68 - 104 seconds Performed By: #### 4 [id number] ####[facility] [address] [place] [address] 31064 Glenn Gudino M.D. [id number] CBCon 01-20-2024 AUTO NRBC 0.0 % Normal [facility] Comment on above: Performed By: #### 4 [id number] ####[facility] [address] [place], [place] [address] Glenn Gudino M.D. [id number] AUTO NRBC ABS COUNT 0.00 K/mcL Normal 0.00-0.00 [facility] Comment on above: Performed By: #### 4 [id number] ####[facility] [address] [place] [address] Glenn Gudino M.D. [id number] Erythrocyte distribution width (RBC) [Ratio] 18.9 % High 11.6-14.8 [facility] Comment on above: Performed By: #### 4 [id number] ####[facility] [address] [place], [place] [address] Glenn Gudino M.D. [id number] Hematocrit (Bld) [Volume fraction] 26.1 % Low 36.0-46.0 [facility] Comment on above: Performed By: #### 4 [id number] ####[facility] [address] [place], [place] [address] Glenn Gudino M.D. [id number] Hemoglobin (Bld) [Mass/Vol] 8.1 g/dL Low 12.0-16.0 [facility] Comment on above: Performed By: #### 4 [id number] ####[facility] [address] [place], [place] [address] Glenn Gudino M.D. [id number] MCH (RBC) [Entitic mass] 27.3 pg Normal 26.0-34.0 [facility] Comment on above: Performed By: #### 4 [id number] ####[facility] [address] [place], [place] [address] Glenn Gudino M.D. [id number] MCV (RBC) [Entitic vol] 87.9 fL Normal 80.0-100.0 [facility] Comment on above: Performed By: #### 4 [id number] ####[facility] [address] [place] [address] 26896 Glenn Gudino M.D. [id number] MEAN CORPUSCULAR HEMOGLOBIN CONC 31.0 g/dL Normal 31.0-37.0 [facility] Comment on above: Performed By: #### 4 [id number] ####[facility] [address] [place], [place] [address] Glenn Gudino M.D. [id number] Platelet mean volume (Bld) [Entitic vol] 10.1 fL Normal 9.4-12.4 [facility] Comment on above: Performed By: #### 4 [id number] ####[facility] [address] [place], [place] [address] Glenn Gudino M.D. [id number] Platelets (Bld) [#/Vol] 160 10*3/uL Normal 150-400 [facility] Comment on above: Performed By: #### 4 [id number] ####[facility] [address] [place] [address] 77469 Glenn Gudino M.D. [id number] RBC (Bld) [#/Vol] 2.97 10*6/uL Low 4.00-5.20 [facility] Comment on above: Performed By: #### 4 [id number] ####[facility] [address] [place] [address] 40414 Glenn Gudino M.D. [id number] WBC (Bld) [#/Vol] 4.60 10*3/uL Normal 4.50-11.00 [facility] Comment on above: Performed By: #### 4 [id number] ####[facility] [address] [place] [address] 18988 Glenn Gudino M.D. [id number] CONSULTon 01-20-2024 CONSULT Normal [facility] HEPATIC FUNCTION PANELon Albumin [Mass/Vol] 2.7 g/dL Low 3.2-5.2 [facility] Comment on above: Performed By: #### 4 5866 ####[facility] [address] [place] [address] Glenn Gudino M.D. [id number] Order Comment: [facility] has implemented the eGFR calculation approach that does not have a coefficient for race that conforms to the NKF-ASN Task Force Recommendations. Performed By: #### 4 6449 ####[facility] [address] [place] [address] Glenn Gudino M.D. [id number] ALP [Catalytic activity/Vol] 79 U/L Normal 40-150 [facility] Comment on above: Performed By: #### 4 5866 ####[facility] [address] [place], [place] [address] Glenn Gudino M.D. [id number] ALT [Catalytic activity/Vol] 13 U/L Normal 0-35 U/L [facility] Comment on above: Performed By: #### 4 5866 ####[facility] [address] [place], [place] [address] Glenn Gudino M.D. [id number] AST [Catalytic activity/Vol] 26 U/L Normal 0-35 U/L [facility] Comment on above: Performed By: #### 4 5866 ####[facility] [address] [place], [place] [address] Glenn Gudino M.D. [id number] Bilirubin [Mass/Vol] 0.2 mg/dL Normal 0.0-1.3 [facility] Comment on above: Performed By: #### 4 5866 ####[facility] [address] [place], [place] [address] Glenn Gudino M.D. [id number] BILIRUBIN, DIRECT < Normal 0.0-0.4 [facility] Comment on above: Performed By: #### 4 5866 ####[facility] [address] [place] [address] 16163 Glenn Gudino M.D. [id number] Protein [Mass/Vol] 6.1 g/dL Normal 6.0-8.0 [facility] Comment on above: Performed By: #### 4 5866 ####[facility] [address] [place], [place] [address] Glenn Gudino M.D. [id number] PT/INRon 01-20-2024 INR Coag (PPP) [Relative time] 1.0 {INR} Normal 0.8-1.1 [facility] Comment on above: Order Comment: Jennifer retana the induction phase of oral anticoagulation, the INR may not reflect the anticoagulation status of the patient. Therapeutic ranges for INR's are:Most clinical situations: INR 2.0-3.0Mechanical Prosthetic Valve: INR 2.5-3.5Critical: INR >5.0 Performed By: #### 4 6391 ####[facility] [address] [place] [address] 59672 Glenn Gudion M.D. [id number] PT Coag (PPP) [Time] 13.2 s Normal 11.8-14.3 [facility] Comment on above: Order Comment: Jennifer retana the induction phase of oral anticoagulation, the INR may not reflect the anticoagulation status of the patient. Therapeutic ranges for INR's are:Most clinical situations: INR 2.0-3.0Mechanical Prosthetic Valve: INR 2.5-3.5Critical: INR >5.0 Performed By: #### 4 6391 ####[facility] [address] [place] [address] 79025 Glenn Gudino M.D. [id number] RENAL FUNCTION PANELon 01-19 Anion gap [Moles/Vol] 15 mmol/L Normal 10-20 [facility] Comment on above: Order Comment: [facility] has implemented the eGFR calculation approach that does not have a coefficient for race that conforms to the NKF-ASN Task Force Recommendations. Performed By: #### 4 6449 ####[facility] [address] [place] [address] 00122 Glenn Gudino M.D. [id number] Calcium [Mass/Vol] 8.2 mg/dL Low 8.4-10.2 [facility] Comment on above: Order Comment: [facility] has implemented the eGFR calculation approach that does not have a coefficient for race that conforms to the NKF-ASN Task Force Recommendations. Performed By: #### 4 6449 ####[facility] [address] [place], [place] [address] Glenn Gudino M.D. [id number] Chloride [Moles/Vol] 104 mmol/L Normal 98-108 [facility] Comment on above: Order Comment: [facility] has implemented the eGFR calculation approach that does not have a coefficient for race that conforms to the NKF-ASN Task Force Recommendations. Performed By: #### 4 6449 ####[facility] [address] [place] [address] 74700 Glenn Gudino M.D. [id number] Creatinine [Mass/Vol] 1.96 mg/dL High 0.60-1.10 [facility] Comment on above: Order Comment: [facility] has implemented the eGFR calculation approach that does not have a coefficient for race that conforms to the NKF-ASN Task Force Recommendations. Performed By: #### 4 6449 ####[facility] [address] [place] [address] 08148 Glenn Gudino M.D. [id number] EGFR 29 mL/min/1.73 m2 Low >=60 [facility] Comment on above: Order Comment: [facility] has implemented the eGFR calculation approach that does not have a coefficient for race that conforms to the NKF-ASN Task Force Recommendations. Result Comment: Joi mated GFR was calculated using the 2020 CKD-EPI creatinine equation. Performed By: #### 4 6449 ####[facility] [address] [place] [address] 94478 Glenn Gudino M.D. [id number] Glucose [Mass/Vol] 80 mg/dL Normal 65-99 [facility] Comment on above: Order Comment: [facility] has implemented the eGFR calculation approach that does not have a coefficient for race that conforms to the NKF-ASN Task Force Recommendations. Performed By: #### 4 6449 ####[facility] [address] [place] [address] 45718 Glenn Gudino M.D. [id number] HCO3 (Bld) [Moles/Vol] 20 mmol/L Low 21-32 [facility] Comment on above: Order Comment: [facility] has implemented the eGFR calculation approach that does not have a coefficient for race that conforms to the NKF-ASN Task Force Recommendations. Performed By: #### 4 6449 ####[facility] [address] [place] [address] 45393 Glenn Gudino M.D. [id number] Phosphate [Mass/Vol] 3.9 mg/dL Normal 2.8-4.1 [facility] Comment on above: Order Comment: [facility] has implemented the eGFR calculation approach that does not have a coefficient for race that conforms to the NKF-ASN Task Force Recommendations. Performed By: #### 4 6449 ####[facility] [address] [place] [address] 83479 Glenn Gudino M.D. [id number] Potassium [Moles/Vol] 4.2 mmol/L Normal 3.5-5.1 [facility] Comment on above: Order Comment: [facility] has implemented the eGFR calculation approach that does not have a coefficient for race that conforms to the NKF-ASN Task Force Recommendations. Performed By: #### 4 6449 ####[facility] [address] [place] [address] 26902 Glenn Gudino M.D. [id number] Sodium [Moles/Vol] 135 mmol/L Normal 135-145 [facility] Comment on above: Order Comment: [facility] has implemented the eGFR calculation approach that does not have a coefficient for race that conforms to the NKF-ASN Task Force Recommendations. Performed By: #### 4 [id number] ####[facility] [address] [place], [place] [id number] Glenn Gudino M.D. [id number] Urea nitrogen [Mass/Vol] 32 mg/dL High 8-25 [facility] Comment on above: Order Comment: [facility] has implemented the eGFR calculation approach that does not have a coefficient for race that conforms to the NKF-ASN Task Force Recommendations. Performed By: #### 4 [id number] ####[facility] [address] [place], [place] [id number] Glenn Gudino M.D. [id number] Urea nitrogen/Creatinine [Mass ratio] 16.3 mg/mg Normal 10.0-20.0 [facility] Comment on above: Order Comment: [facility] has implemented the eGFR calculation approach that does not have a coefficient for race that conforms to the NKF-ASN Task Force Recommendations. Performed By: #### 4 [id number] ####[facility] [address] [place], [place] [id number] Glenn Gudino M.D. [id number] URINALYSISon 01-20-2024 AMORPHOUS CRYSTALS Few Abnormal None Seen , Rare [facility] Comment on above: Order Comment: Micro scopic examination is performed on all urinalysis samples and only positive findings are reported. The test for blood on the chemical analytic portion of urinalysis may also be positive due to hemoglobinuria and myoglobinuria and if red blood cells are present they are quantified by microscopic examination. Performed By: #### 4 [id number] ####[facility] [address] [place] [address] Glenn Gudino M.D. [id number] BACTERIA, URINE Few Abnormal None Seen [facility] Comment on above: Order Comment: Micro scopic examination is performed on all urinalysis samples and only positive findings are reported. The test for blood on the chemical analytic portion of urinalysis may also be positive due to hemoglobinuria and myoglobinuria and if red blood cells are present they are quantified by microscopic examination. Performed By: #### 4 [id number] ####[facility] [address] [place] [address] Glenn Gudino M.D. [id number] BILIRUBIN, URINE Negative Normal Negative [facility] Comment on above: Order Comment: Micro scopic examination is performed on all urinalysis samples and only positive findings are reported. The test for blood on the chemical analytic portion of urinalysis may also be positive due to hemoglobinuria and myoglobinuria and if red blood cells are present they are quantified by microscopic examination. Performed By: #### 4 [id number] ####[facility] [address] [place] [address] Glenn Gudino M.D. [id number] BLOOD, URINE Negative Normal Negative [facility] Comment on above: Order Comment: Micro scopic examination is performed on all urinalysis samples and only positive findings are reported. The test for blood on the chemical analytic portion of urinalysis may also be positive due to hemoglobinuria and myoglobinuria and if red blood cells are present they are quantified by microscopic examination. Performed By: #### 4 [id number] ####[facility] [address] [place] [address] Glenn Gudino M.D. [id number] Clarity (U) Cloudy Abnormal Clear [facility] Comment on above: Order Comment: Micro scopic examination is performed on all urinalysis samples and only positive findings are reported. The test for blood on the chemical analytic portion of urinalysis may also be positive due to hemoglobinuria and myoglobinuria and if red blood cells are present they are quantified by microscopic examination. Performed By: #### 4 [id number] ####[facility] [address] [place], [place] [id number] Glenn Gudino M.D. [id number] Color (U) Yellow Normal Colorless, Yellow [facility] Comment on above: Order Comment: Micro scopic examination is performed on all urinalysis samples and only positive findings are reported. The test for blood on the chemical analytic portion of urinalysis may also be positive due to hemoglobinuria and myoglobinuria and if red blood cells are present they are quantified by microscopic examination. Performed By: #### 4 [id number] ####[facility] [address] [place] [address] Glenn Gudino M.D. [id number] Glucose Ql (U) Negative Normal Negative [facility] Comment on above: Order Comment: Micro scopic examination is performed on all urinalysis samples and only positive findings are reported. The test for blood on the chemical analytic portion of urinalysis may also be positive due to hemoglobinuria and myoglobinuria and if red blood cells are present they are quantified by microscopic examination. Performed By: #### 4 [id number] ####[facility] [address] [place], [place] [id number] Glenn Gudino M.D. [id number] Ketones Ql (U) Negative Normal Negative [facility] Comment on above: Order Comment: Micro scopic examination is performed on all urinalysis samples and only positive findings are reported. The test for blood on the chemical analytic portion of urinalysis may also be positive due to hemoglobinuria and myoglobinuria and if red blood cells are present they are quantified by microscopic examination. Performed By: #### 4 [id number] ####[facility] [address] [place], [place] [id number] Glenn Gudino M.D. [id number] Leukocyte esterase Test strip Ql (U) Small Abnormal Negative [facility] Comment on above: Order Comment: Micro scopic examination is performed on all urinalysis samples and only positive findings are reported. The test for blood on the chemical analytic portion of urinalysis may also be positive due to hemoglobinuria and myoglobinuria and if red blood cells are present they are quantified by microscopic examination. Performed By: #### 4 [id number] ####[facility] [address] [place] [address] Glenn Gudino M.D. [id number] NITRITE, URINE Negative Normal Negative [facility] Comment on above: Order Comment: Micro scopic examination is performed on all urinalysis samples and only positive findings are reported. The test for blood on the chemical analytic portion of urinalysis may also be positive due to hemoglobinuria and myoglobinuria and if red blood cells are present they are quantified by microscopic examination. Performed By: #### 4 [id number] ####[facility] [address] [place] [address] Glenn Gudino M.D. [id number] pH (U) 7.5 [pH] High 5.0-7.0 [facility] Comment on above: Order Comment: Micro scopic examination is performed on all urinalysis samples and only positive findings are reported. The test for blood on the chemical analytic portion of urinalysis may also be positive due to hemoglobinuria and myoglobinuria and if red blood cells are present they are quantified by microscopic examination. Performed By: #### 4 [id number] ####[facility] [address] [place] [address] Glenn Gudino M.D. [id number] Protein (U) [Mass/Vol] 100 mg/dL Abnormal Negative [facility] Comment on above: Order Comment: Micro scopic examination is performed on all urinalysis samples and only positive findings are reported. The test for blood on the chemical analytic portion of urinalysis may also be positive due to hemoglobinuria and myoglobinuria and if red blood cells are present they are quantified by microscopic examination. Performed By: #### 4 [id number] ####[facility] [address] [place] [address] Glenn Gudino M.D. [id number] RBC LM.HPF (Urine sed) [#/Area] 1 /[HPF] Normal 0-3 [facility] Comment on above: Order Comment: Micro scopic examination is performed on all urinalysis samples and only positive findings are reported. The test for blood on the chemical analytic portion of urinalysis may also be positive due to hemoglobinuria and myoglobinuria and if red blood cells are present they are quantified by microscopic examination. Performed By: #### 4 [id number] ####[facility] [address] [place] [address] Glenn Gudino M.D. [id number] Specific gravity (U) [Rel density] 1.018 Normal 1.005-1.02 5 [facility] Comment on above: Order Comment: Micro scopic examination is performed on all urinalysis samples and only positive findings are reported. The test for blood on the chemical analytic portion of urinalysis may also be positive due to hemoglobinuria and myoglobinuria and if red blood cells are present they are quantified by microscopic examination. Performed By: #### 4 6625 ####[facility] [address] [place] [address] Glenn Gudino M.D. [id number] SQUAMOUS EPITHELIAL 1 /hpf Normal 0-4 [facility] Comment on above: Order Comment: Micro scopic examination is performed on all urinalysis samples and only positive findings are reported. The test for blood on the chemical analytic portion of urinalysis may also be positive due to hemoglobinuria and myoglobinuria and if red blood cells are present they are quantified by microscopic examination. Performed By: #### 4 6625 ####[facility] [address] [place] [address] Glenn Gudino M.D. [id number] UROBILINOGEN, URINE <2.0 Normal <2.0 [facility] Comment on above: Order Comment: Micro scopic examination is performed on all urinalysis samples and only positive findings are reported. The test for blood on the chemical analytic portion of urinalysis may also be positive due to hemoglobinuria and myoglobinuria and if red blood cells are present they are quantified by microscopic examination. Performed By: #### 4 6625 ####[facility] [place], [place] [address] Glenn Gudino M.D. [id number] WBC LM.HPF (Urine sed) [#/Area] 18 /[HPF] High 0-5 [facility] Comment on above: Order Comment: Micro scopic examination is performed on all urinalysis samples and only positive findings are reported. The test for blood on the chemical analytic portion of urinalysis may also be positive due to hemoglobinuria and myoglobinuria and if red blood cells are present they are quantified by microscopic examination. Performed By: #### 4 [id number] ####[facility] [place], [place] [address] Glenn Gudino M.D. 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 Normal [facility] Comment on above: Order Comment: Injur y/Trauma [...] Date: 01/05/2024 9:06 AM Patient Status: Outpatient Sound Printer: Mary Newell, DOLOREST, RVS Referring Physician: SARATH REY ; Indications - AAA stent graft I71.3 - Abdominal aortic aneurysm, ruptured Procedure Description 19065 Duplex scan of aorta, inferior vena cava, [...] Prox EMMANUEL Trans Diam 1.3 cm Normal [facility] ABDOMINAL AORTIC ANEURYSM DUPLEX (AAA) Patient Info Name: SCOTT OBREGON Age: 63 years : 1960 Gender: Female Exam Date: 01/05/2024 9:06 AM Patient Status: Outpatient Sound Printer: Mary Newell, DEVIN, RVS Referring Physician: SARATH REY ; Indications - AAA stent graft I71.3 - Abdominal aortic aneurysm, ruptured Procedure Description 76910 Duplex scan of aorta, inferior vena cava, [...] on MonJan 05, 2024 11:42:09 AM EDT [facility] RENAL ARTERY DUPLEX LIMIT EDon 01-05-2024 RENAL ARTERY DUPLEX LIMITED Patient Info Name: SCOTT OBREGON Age: 63 years : 1960 Gender: Female Exam Date: 01/05/2024 9:37 AM Patient Status: Outpatient Sound Printer: Mary Newell, RVT, RVS Referring Physician: SARATH REY ; Indications - left renal artery chimney N28.9 - Renal insufficiency Procedure Description 21561 Duplex scan of arterial inflow and venous [...] Rey MD, RPVI on 01/05/2024 11:58 AM [facility] RENAL ARTERY DUPLEX LIMITED Patient Info Name: SCOTT OBREGON Age: 63 years : 1960 Gender: Female Exam Date: 01/05/2024 9:37 AM Patient Status: Outpatient Sound Printer: Mary Newell, DEVIN, RVS Referring Physician: SARATH REY ; Indications - left renal artery chimney N28.9 - Renal insufficiency Procedure Description 64563 Duplex scan of arterial inflow and venous [...] on MonJan 05, 2024 11:59:06 AM EDT [facility] External Lab PT/INRon 2023 INR Coag (PPP) [Relative time] 1.7 {INR} [facility] No Panel Informationon 01-02 [facility] POCT PT/INROrdered By: Makenzie Garza on 01-03-2024 INR Coag (Bld) [Relative time] 1.7 {INR} Abnormal 0.8 - 1.1 [facility] Comment on above: 5.0 mg, all other do ses stay the same Interpretation and review of laboratory results Abnormal [facility] External Lab PT/INRon 2023 INR Coag (PPP) [Relative time] 2.1 {INR} [facility] No Panel Informationon 12-26 [facility] POCT PT/INROrdered By: Antonietta Monk on 12-27-2023 INR Coag (Bld) [Relative time] 2.1 {INR} Abnormal 0.8 - 1.1 [facility] Interpretation and review of laboratory results Abnormal [facility] BASIC METABOLIC PANELon 11-27 Anion gap [Moles/Vol] 14 mmol/L Normal 10-20 [facility] Comment on above: Order Comment: Jennifer retana the induction phase of oral anticoagulation, the INR may not reflect the anticoagulation status of the patient. Therapeutic ranges for INR's are: Most clinical situations: INR 2.0-3.0 Mechanical Prosthetic Valve: INR 2.5-3.5 Critical: INR >5.0 Performed By: #### 4 [id number] #### [facility] [address] [place] [address] Jaron Méndez M.D. [id number] Calcium [Mass/Vol] 9.0 mg/dL Normal 8.4-10.2 [facility] Comment on above: Order Comment: Jennifer retana the induction phase of oral anticoagulation, the INR may not reflect the anticoagulation status of the patient. Therapeutic ranges for INR's are: Most clinical situations: INR 2.0-3.0 Mechanical Prosthetic Valve: INR 2.5-3.5 Critical: INR >5.0 Performed By: #### 4 [id number] #### [facility] [address] [place] [address] Jaron Méndez M.D. [id number] Chloride [Moles/Vol] 98 mmol/L Normal 98-108 [facility] Comment on above: Order Comment: Jennifer retana the induction phase of oral anticoagulation, the INR may not reflect the anticoagulation status of the patient. Therapeutic ranges for INR's are: Most clinical situations: INR 2.0-3.0 Mechanical Prosthetic Valve: INR 2.5-3.5 Critical: INR >5.0 Performed By: #### 4 6391 #### LAB [address] [place] [address] Jaron Méndez M.D. [id number] Creatinine [Mass/Vol] 1.40 mg/dL High 0.60-1.10 [facility] Comment on above: Order Comment: Durin g the induction phase of oral anticoagulation, the INR may not reflect the anticoagulation status of the patient. Therapeutic ranges for INR's are: Most clinical situations: INR 2.0-3.0 Mechanical Prosthetic Valve: INR 2.5-3.5 Critical: INR >5.0 Performed By: #### 4 6391 #### [address] [address] Jaron Méndez M.D. [id number] EGFR 43 mL/min/1.73 m2 Low >=60 [facility] Comment on above: Order Comment: Durin g the induction phase of oral anticoagulation, the INR may not reflect the anticoagulation status of the patient. Therapeutic ranges for INR's are: Most clinical situations: INR 2.0-3.0 Mechanical Prosthetic Valve: INR 2.5-3.5 Critical: INR >5.0 Result Comment: Joi mated GFR was calculated using the 2020 CKD-EPI creatinine equation. Performed By: #### 4 [id number] #### LAB [address] [place] [address] Jaron Méndez M.D. [id number] Glucose [Mass/Vol] 89 mg/dL Normal 65-99 [facility] Comment on above: Order Comment: Durin g the induction phase of oral anticoagulation, the INR may not reflect the anticoagulation status of the patient. Therapeutic ranges for INR's are: Most clinical situations: INR 2.0-3.0 Mechanical Prosthetic Valve: INR 2.5-3.5 Critical: INR >5.0 Performed By: #### 4 6391 #### [facility] [address] [place] [address] Jaron Méndez M.D. [id number] HCO3 (Bld) [Moles/Vol] 25 mmol/L Normal 21-32 [facility] Comment on above: Order Comment: Jennifer retana the induction phase of oral anticoagulation, the INR may not reflect the anticoagulation status of the patient. Therapeutic ranges for INR's are: Most clinical situations: INR 2.0-3.0 Mechanical Prosthetic Valve: INR 2.5-3.5 Critical: INR >5.0 Performed By: #### 4 6391 #### [address] [address] Jaron Méndez M.D. [id number] Potassium [Moles/Vol] 4.5 mmol/L Normal 3.5-5.1 [facility] Comment on above: Order Comment: Jennifer retana the induction phase of oral anticoagulation, the INR may not reflect the anticoagulation status of the patient. Therapeutic ranges for INR's are: Most clinical situations: INR 2.0-3.0 Mechanical Prosthetic Valve: INR 2.5-3.5 Critical: INR >5.0 Performed By: #### 4 6391 #### [address] [address] Jaron Méndez M.D. [id number] Sodium [Moles/Vol] 132 mmol/L Low 135-145 [facility] Comment on above: Order Comment: Jennifer retana the induction phase of oral anticoagulation, the INR may not reflect the anticoagulation status of the patient. Therapeutic ranges for INR's are: Most clinical situations: INR 2.0-3.0 Mechanical Prosthetic Valve: INR 2.5-3.5 Critical: INR >5.0 Performed By: #### 4 6391 #### [address] [address] Jaron Méndez M.D. [id number] Urea nitrogen [Mass/Vol] 25 mg/dL Normal 8-25 [facility] Comment on above: Order Comment: Jennifer the induction phase of oral anticoagulation, the INR may not reflect the anticoagulation status of the patient. Therapeutic ranges for INR's are: Most clinical situations: INR 2.0-3.0 Mechanical Prosthetic Valve: INR 2.5-3.5 Critical: INR >5.0 Performed By: #### 4 6391 #### [facility] [address] [place] [address] Jaron Méndez M.D. [id number] Urea nitrogen/Creatinine [Mass ratio] 17.9 mg/mg Normal 10.0-20.0 [facility] Comment on above: Order Comment: Jennifer retana the induction phase of oral anticoagulation, the INR may not reflect the anticoagulation status of the patient. Therapeutic ranges for INR's are: Most clinical situations: INR 2.0-3.0 Mechanical Prosthetic Valve: INR 2.5-3.5 Critical: INR >5.0 Performed By: #### 4 6391 #### LAB [address] [place] [address] Jaron Méndez M.D. [id number] PT/INRon 12-21-2023 INR Coag (PPP) [Relative time] 2.9 {INR} High 0.8-1.1 [facility] Comment on above: Order Comment: Jennifer retana the induction phase of oral anticoagulation, the INR may not reflect the anticoagulation status of the patient. Therapeutic ranges for INR's are: Most clinical situations: INR 2.0-3.0 Mechanical Prosthetic Valve: INR 2.5-3.5 Critical: INR >5.0 Performed By: #### 4 6391 #### [address] [address] Jaron Méndez M.D. [id number] PT Coag (PPP) [Time] 31.1 s High 11.8-14.3 [facility] Comment on above: Order Comment: Jennifer g the induction phase of oral anticoagulation, the INR may not reflect the anticoagulation status of the patient. Therapeutic ranges for INR's are: Most clinical situations: INR 2.0-3.0 Mechanical Prosthetic Valve: INR 2.5-3.5 Critical: INR >5.0 Performed By: #### 4 [id number] #### LAB [address] [place] [address] Jaron Méndez M.D. [id number] [facility] POCT PT/INROrdered By: Adilene Albright on 12-20-2023 INR Coag (Bld) [Relative time] 4.4 {INR} Abnormal 0.8 - 1.1 [facility] Comment on above: Patient will get a b lood draw at [facility] tomorrow morning. Coumadin clinic aware. She is holing her dose for tonight. Interpretation and review of laboratory results Abnormal [facility] External Lab PT/INRon 2023 INR Coag (PPP) [Relative time] 4.1 {INR} [facility] No Panel Informationon 12-12 [facility] POCT PT/INROrdered By: Makenzie Garza on 12-13-2023 INR Coag (Bld) [Relative time] 4.1 {INR} Abnormal 0.8 - 1.1 [facility] Interpretation and review of laboratory results Abnormal [facility] POC CREATININE - [facility] 11-26 Creatinine [Mass/Vol] 1.7 mg/dL High 0.6-1.2 [facility] External Lab PT/INRon 2023 INR Coag (PPP) [Relative time] 4.4 {INR} [facility]ROrdered By: Makenzie Garza on 12-06-2023 INR Coag (Bld) [Relative time] 4.4 {INR} Abnormal 0.8 - 1.1 [facility] Comment on above: Pt declined venipunc ture for lab draw. Coumadin clinic aware. See Narrative note Interpretation and review of laboratory results Abnormal [facility] External Lab PT/INRon 2023 INR Coag (PPP) [Relative time] 3.5 {INR} [facility] No [facility] 11-[facility]/INROrdered By: Adilene Albright on 11-29-2023 INR Coag (Bld) [Relative time] 3.5 {INR} Abnormal 0.8 - 1.1 [facility] Interpretation and review of laboratory results Abnormal [facility] US ANKLE/BRACHIAL INDICES EX TREMITY LIMITEDon 11-28-2023 US ANKLE/BRACHIAL INDICES EXTREMITY LIMITED Patient Info Name: SCOTT OBREGON Age: 63 years : 1960 Gender: Female Exam Date: 11/28/2023 3:21 PM Patient Status: Outpatient Sound Printer: AMBER LUCIO RVT Referring Physician: ABIGAIL ESTRELLA ; Indications - Left foot ischemia with ischemic ulcers I73.9 - Peripheral vascular disease, unspecified Procedure Description 71952 Limited bilateral noninvasive physiologic studies of upper [...] Carcamo DO on 11/28/2023 03:38 PM Normal [facility] US ANKLE/BRACHIAL INDICES EXTREMITY LIMITED Patient Info Name: SCOTT OBREGON Age: 63 years : 1960 Gender: Female Exam Date: 11/28/2023 3:21 PM Patient Status: Outpatient Sound Printer: AMBER LUCIO RVT Referring Physician: ABIGAIL ESTRELLA ; Indications - Left foot ischemia with ischemic ulcers I73.9 - Peripheral vascular disease, unspecified Procedure Description 03228 Limited bilateral noninvasive physiologic studies of upper [...] MonNov 28, 2023 3:44:31 PM EDT Normal [facility] CBC WITH AUTO DIFFERENTIALon 11-23-2023 AUTO NRBC 0.0 % Normal [facility] Comment on above: Performed By: #### L [id number] #### [facility] [address] [place], [place] [address] Jaron Méndez M.D. [id number] AUTO NRBC ABS COUNT 0.00 K/mcL Normal 0.00-0.00 [facility] Comment on above: Performed By: #### L [id number] #### [facility] [address] [place], [place] [address] Jaron Méndez M.D. [id number] BASOPHILS ABSOLUTE COUNT 0.04 K/mcL Normal 0.00-0.30 [facility] Comment on above: Performed By: #### L [id number] #### LAB [address] [place] [address] Jaron Méndez M.D. [id number] Basophils/100 WBC (Bld) 0.6 % Normal [facility] Comment on above: Performed By: #### L [id number] #### LAB [address] [place] [address] Jaron Méndez M.D. [id number] Eosinophils (Bld) [#/Vol] 0.07 10*3/uL Normal 0.00-0.50 [facility] Comment on above: Performed By: #### L [id number] #### LAB [address] [place] [address] Jaron Méndez M.D. [id number] Eosinophils/100 WBC (Bld) 1.1 % Normal [facility] Comment on above: Performed By: #### L [id number] #### LAB [address] [place] [address] Jaron Méndez M.D. [id number] Erythrocyte distribution width (RBC) [Ratio] 17.9 % High 11.6-14.8 [facility] Comment on above: Performed By: #### L [id number] #### LAB [address] [place] [address] Jaron Méndez M.D. [id number] Hematocrit (Bld) [Volume fraction] 29.2 % Low 36.0-46.0 [facility] Comment on above: Performed By: #### L [id number] #### LAB [address] [place] [address] Jaron Méndez M.D. [id number] Hemoglobin (Bld) [Mass/Vol] 9.0 g/dL Low 12.0-16.0 [facility] Comment on above: Performed By: #### L [id number] #### LAB [address] [place] [address] Jaron Méndez M.D. [id number] IG ABSOLUTE 0.06 K/mcL Normal 0.00-0.30 [facility] Comment on above: Performed By: #### L [id number] #### LAB [address] [place] [address] Jaron Méndez M.D. [id number] IG PERCENT 0.90 % Normal [facility] Comment on above: Result Comment: The IG parameter is the percentage of metamyelocytes, myelocytes and promyelocytes. An immature granulocyte count (IG) of 1% or more suggests the possibility of infection, an IG count of 3% is very likely related to an infection. Performed By: #### L [id number] #### LAB [address] [place] [address] Jaron Méndez M.D. [id number] Lymphocytes (Bld) [#/Vol] 1.09 10*3/uL Normal 0.90-4.00 [facility] Comment on above: Performed By: #### L [id number] #### LAB [address] [place] [address] Jaron Méndez M.D. [id number] Lymphocytes/100 WBC (Bld) 16.7 % Normal [facility] Comment on above: Performed By: #### L [id number] #### LAB [address] [place] [address] Jaron Méndez M.D. [id number] MCH (RBC) [Entitic mass] 27.4 pg Normal 26.0-34.0 [facility] Comment on above: Performed By: #### L [id number] #### LAB [address] [place] [address] Jaron Méndez M.D. [id number] MCV (RBC) [Entitic vol] 88.8 fL Normal 80.0-100.0 [facility] Comment on above: Performed By: #### L [id number] #### LAB [address] [place] [address] Jaron Méndez M.D. [id number] MEAN CORPUSCULAR HEMOGLOBIN CONC 30.8 g/dL Low 31.0-37.0 [facility] Comment on above: Performed By: #### L [id number] #### LAB [address] [address] Jaron Méndez M.D. [id number] Monocytes (Bld) [#/Vol] 0.56 10*3/uL Normal 0.30-0.90 [facility] Comment on above: Performed By: #### L [id number] #### LAB [address] [place] [address] Jaron Méndez M.D. [id number] Monocytes/100 WBC (Bld) 8.6 % Normal [facility] Comment on above: Performed By: #### L [id number] #### LAB [address] [place] [address] Jaron Méndez M.D. [id number] NEUTROPHILS ABSOLUTE COUNT 4.72 K/mcL Normal 1.70-7.00 [facility] Comment on above: Performed By: #### L [id number] #### LAB [address] [place] [address] Jaron Méndez M.D. [id number] Neutrophils/100 WBC (Bld) 72.1 % Normal [facility] Comment on above: Performed By: #### L [id number] #### LAB [address] [place] [address] Jaron Méndez M.D. [id number] Platelet mean volume (Bld) [Entitic vol] 10.2 fL Normal 9.4-12.4 [facility] Comment on above: Performed By: #### L [id number] #### LAB [address] [place] [address] Jaron Méndez M.D. [id number] Platelets (Bld) [#/Vol] 299 10*3/uL Normal 150-400 [facility] Comment on above: Performed By: #### L [id number] #### LAB [address] [place] [address] Jaron Méndez M.D. [id number] RBC (Bld) [#/Vol] 3.29 10*6/uL Low 4.00-5.20 [facility] Comment on above: Performed By: #### L [id number] #### LAB [address] [address] Jaron Méndez M.D. [id number] WBC (Bld) [#/Vol] 6.54 10*3/uL Normal 4.50-11.00 [facility] Comment on above: Performed By: #### L [id number] #### LAB [address] [address] Jaron Méndez M.D. [id number] COMPREHENSIVE METABOLIC PANE [facility] 11-23-2023 Albumin [Mass/Vol] 3.4 g/dL Normal 3.2-5.2 [facility] Comment on above: Order Comment: [facility] has implemented the eGFR calculation approach that does not have a coefficient for race that conforms to the NKF-ASN Task Force Recommendations. Performed By: #### 4 6126 #### LAB [address] [address] Jaron Méndez M.D. [id number] ALP [Catalytic activity/Vol] 82 U/L Normal 40-150 [facility] Comment on above: Order Comment: [facility] has implemented the eGFR calculation approach that does not have a coefficient for race that conforms to the NKF-ASN Task Force Recommendations. Performed By: #### 4 6126 #### LAB [address] [address] Jaron Méndez M.D. [id number] ALT [Catalytic activity/Vol] 21 U/L Normal 0-35 U/L [facility] Comment on above: Order Comment: [facility] has implemented the eGFR calculation approach that does not have a coefficient for race that conforms to the NKF-ASN Task Force Recommendations. Performed By: #### 4 6126 #### LAB [address] [address] Jaron Méndez M.D. [id number] Anion gap [Moles/Vol] 16 mmol/L Normal 10-20 [facility] Comment on above: Order Comment: [facility] has implemented the eGFR calculation approach that does not have a coefficient for race that conforms to the NKF-ASN Task Force Recommendations. Performed By: #### 4 6126 #### LAB [address] [address] Jaron Méndez M.D. [id number] AST [Catalytic activity/Vol] 43 U/L High 0-35 U/L [facility] Comment on above: Order Comment: [facility] has implemented the eGFR calculation approach that does not have a coefficient for race that conforms to the NKF-ASN Task Force Recommendations. Performed By: #### 4 6126 #### LAB [address] [address] Jaron Méndez M.D. [id number] Bilirubin [Mass/Vol] 0.3 mg/dL Normal 0.0-1.3 [facility] Comment on above: Order Comment: [facility] has implemented the eGFR calculation approach that does not have a coefficient for race that conforms to the NKF-ASN Task Force Recommendations. Performed By: #### 4 6126 #### LAB [address] [address] Jaron Méndez M.D. [id number] Calcium [Mass/Vol] 8.8 mg/dL Normal 8.4-10.2 [facility] Comment on above: Order Comment: [facility] has implemented the eGFR calculation approach that does not have a coefficient for race that conforms to the NKF-ASN Task Force Recommendations. Performed By: #### 4 6126 #### LAB [address] [address] Jaron Méndez M.D. [id number] Chloride [Moles/Vol] 101 mmol/L Normal 98-108 [facility] Comment on above: Order Comment: [facility] has implemented the eGFR calculation approach that does not have a coefficient for race that conforms to the NKF-ASN Task Force Recommendations. Performed By: #### 4 6126 #### LAB [address] [address] Jaron Méndez M.D. [id number] Creatinine [Mass/Vol] 1.34 mg/dL High 0.60-1.10 [facility] Comment on above: Order Comment: [facility] has implemented the eGFR calculation approach that does not have a coefficient for race that conforms to the NKF-ASN Task Force Recommendations. Performed By: #### 4 6126 #### LAB [address] [address] Jaron Méndez M.D. [id number] EGFR 45 mL/min/1.73 m2 Low >=60 [facility] Comment on above: Order Comment: [facility] has implemented the eGFR calculation approach that does not have a coefficient for race that conforms to the NKF-ASN Task Force Recommendations. Result Comment: Joi mated GFR was calculated using the 2020 CKD-EPI creatinine equation. Performed By: #### 4 6126 #### LAB [address] [address] Jaron Méndez M.D. [id number] Glucose [Mass/Vol] 102 mg/dL High 65-99 [facility] Comment on above: Order Comment: [facility] has implemented the eGFR calculation approach that does not have a coefficient for race that conforms to the NKF-ASN Task Force Recommendations. Performed By: #### 4 6126 #### LAB [address] [address] Jaron Méndez M.D. [id number] HCO3 (Bld) [Moles/Vol] 21 mmol/L Normal 21-32 [facility] Comment on above: Order Comment: [facility] has implemented the eGFR calculation approach that does not have a coefficient for race that conforms to the NKF-ASN Task Force Recommendations. Performed By: #### 4 6151 #### LAB [address] [address] Jaron Méndez M.D. [id number] Potassium [Moles/Vol] 4.4 mmol/L Normal 3.5-5.1 [facility] Comment on above: Order Comment: [facility] has implemented the eGFR calculation approach that does not have a coefficient for race that conforms to the NKF-ASN Task Force Recommendations. Performed By: #### 4 6126 #### LAB [address] [address] Jaron Méndez M.D. [id number] Protein [Mass/Vol] 7.0 g/dL Normal 6.0-8.0 [facility] Comment on above: Order Comment: [facility] has implemented the eGFR calculation approach that does not have a coefficient for race that conforms to the NKF-ASN Task Force Recommendations. Performed By: #### 4 6126 #### LAB [address] [address] Jaron Méndez M.D. [id number] Sodium [Moles/Vol] 134 mmol/L Low 135-145 [facility] Comment on above: Order Comment: [facility] has implemented the eGFR calculation approach that does not have a coefficient for race that conforms to the NKF-ASN Task Force Recommendations. Performed By: #### 4 6126 #### LAB [address] [address] Jarno Méndez M.D. [id number] Urea nitrogen [Mass/Vol] 30 mg/dL High 8-25 [facility] Comment on above: Order Comment: [facility] has implemented the eGFR calculation approach that does not have a coefficient for race that conforms to the NKF-ASN Task Force Recommendations. Performed By: #### 4 6126 #### LAB [address] [address] Jaron Méndez M.D. [id number] Urea nitrogen/Creatinine [Mass ratio] 22.4 mg/mg High 10.0-20.0 [facility] Comment on above: Order Comment: [facility] has implemented the eGFR calculation approach that does not have a coefficient for race that conforms to the NKF-ASN Task Force Recommendations. Performed By: #### 4 6126 #### LAB [address] [address] Jaron Méndez M.D. [id number] External Lab PT/INRon 2023 INR Coag (PPP) [Relative time] 2.5 {INR} [facility] No Panel Informationon 11-20 [facility] POCT PT/INROrdered By: Adilene Albright on 11-21-2023 INR Coag (Bld) [Relative time] 2.5 {INR} Abnormal 0.8 - 1.1 [facility] Interpretation and review of laboratory results Abnormal [facility] US RENAL ARTERY DUPLEX COMPL ETEon 11-16-2023 US RENAL ARTERY DUPLEX COMPLETE Patient Info Name: SCOTT OBREGON Age: 63 years : 1960 Gender: Female Exam Date: 11/16/2023 8:47 AM Patient Status: Outpatient Sound Printer: Gosia Eric RDMS, RVT Referring Physician: TYLOR KRUGER ; Indications - 10-09-2023 Emergent EVAR with renal stenting with Dr. Kruger/Dr. Guerra Z98.890 - Other specified postprocedural states Procedure Description 85764 Duplex scan of arterial inflow and venous [...] John MD on 11/16/2023 01:27 PM Normal [facility] RENAL ARTERY DUPLEX COMPLETE Patient Info Name: SCOTT OBREGON Age: 63 years : 1960 Gender: Female Exam Date: 11/16/2023 8:47 AM Patient Status: Outpatient Sound Printer: 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 Kruger/Dr. Guerra Z98.890 - Other specified postprocedural states Procedure Description 17555 Duplex scan of arterial inflow and venous [...] MonNov 16, 2023 1:32:30 PM EDT Normal [facility] External Lab PT/INRon 2023 INR Coag (PPP) [Relative time] 3.5 {INR} [facility] No Panel Informationon 11-13 [facility] POCT PT/INROrdered By: Adilene Albright on 11-14-2023 INR Coag (Bld) [Relative time] 3.5 {INR} Abnormal 0.8 - 1.1 [facility] Interpretation and review of laboratory results Abnormal [facility] External Lab PT/INRon 2023 INR Coag (PPP) [Relative time] 2.3 {INR} [facility] No Panel Informationon 11-07 [facility] POCT PT/INROrdered By: Antonietta Monk on 11-08-2023 INR Coag (Bld) [Relative time] 2.3 {INR} Abnormal 0.8 - 1.1 [facility] Interpretation and review of laboratory results Abnormal [facility] PT Coag (PPP) [Time]on 11-01 INR Coag (PPP) [Relative time] 2.7 {INR} Normal <=5.0 [facility] Comment on above: Order Comment: The r ecommended therapeutic INR range for most cardiac indications is 2.0-3.0 For high intensity therapy (i.e. mechanical heart valves), the recommended range is 2.5-3.5 Performed By: #### 5 902-2 #### [facility] ([facility]) LAB [address] [place] [address] Prothrombin timeon 4 PT Coag (PPP) [Time] 28.4 s High 11.9-14.7 [facility] Comment on above: Order Comment: The r ecommended therapeutic INR range for most cardiac indications is 2.0-3.0 For high intensity therapy (i.e. mechanical heart valves), the recommended range is 2.5-3.5 Performed By: #### 5 902-2 #### [facility] ([facility]) LAB [address] [place] [address] Comprehensive metabolic 2000 panelon 10-31-2023 Albumin [Mass/Vol] 2.6 g/dL Low 3.5-4.8 [facility] Comment on above: Performed By: #### 5 902-2 #### [facility] ([facility]) LAB [address] [place] [address] 91559 ALP [Catalytic activity/Vol] 59 U/L Normal 32-91 [facility] Comment on above: Performed By: #### 5 902-2 #### [facility] ([facility]) LAB [address] [place] [address] 04118 ALT [Catalytic activity/Vol] 21 U/L Normal 7-52 [facility] Comment on above: Performed By: #### 5 902-2 #### [facility] ([facility]) LAB [address] [place] [address] 30230 Anion gap [Moles/Vol] 10 mmol/L Normal 6-18 [facility] Comment on above: Performed By: #### 5 902-2 #### [facility] ([facility]) LAB [address] [place] [address] 28838 AST [Catalytic activity/Vol] 32 U/L Normal 15-41 [facility] Comment on above: Performed By: #### 5 902-2 #### [facility] ([facility]) LAB [address] [place] [address] Bilirubin [Mass/Vol] 0.4 mg/dL Normal 0.3-1.2 [facility] Comment on above: Performed By: #### 5 902-2 #### [facility] [place] [facility] [address] [place] [address] Calcium [Mass/Vol] 8.3 mg/dL Low 8.9-10.3 [facility] Comment on above: Performed By: #### 5 902-2 #### [facility] [place] [facility] [address] [place] [address]6086 Chloride [Moles/Vol] 105 mmol/L Normal 98-107 [facility] Comment on above: Performed By: #### 5 902-2 #### [facility] [place] [facility] [address] [place] [address] 03664 CO2 [Moles/Vol] 20 mmol/L Low 22-32 [facility] Comment on above: Performed By: #### 5 902-2 #### [facility] [place] [facility] [address] [place] [address] Creatinine [Mass/Vol] 1.12 mg/dL Normal 0.60-1.30 [facility] Comment on above: Performed By: #### 5 902-2 #### [facility] [address] [place] [address] 98778 GFR/1.73 sq M.predicted among non-blacks MDRD (S/P/Bld) [Vol rate/Area] 56 mL/min/{1.73_m2} Low >=60 [facility] Comment on above: Result Comment: Calc ulation based on the?Chronic Kidney Disease Epidemiology Collaboration (CKD-EPI) equation refit?without adjustment for race. Performed By: #### 5 902-2 #### [facility] [place] ([facility] [address] [place] [address] Glucose [Mass/Vol] 76 mg/dL Normal 70-99 [facility] Comment on above: Performed By: #### 5 902-2 #### [facility] [place] [facility] [address] [place] [address] 87448 Potassium [Moles/Vol] 4.7 mmol/L Normal 3.6-5.1 [facility] Comment on above: Performed By: #### 5 902-2 #### [facility] [place] [facility] LAB [address] [place] [address] 57656 Protein [Mass/Vol] 6.4 g/dL Normal 6.1-7.9 [facility] Comment on above: Performed By: #### 5 902-2 #### [facility] [place] [facility] LAB [address] [place] [address] 08037 Sodium [Moles/Vol] 135 mmol/L Low 136-145 [facility] Comment on above: Performed By: #### 5 902-2 #### [facility] [place] [facility] [address] [place] [address] 93154 Urea nitrogen [Mass/Vol] 30 mg/dL High 8-20 [facility] Comment on above: Performed By: #### 5 902-2 #### [facility] [place] [facility] [address] [place] [address] 45762 Urea nitrogen/Creatinine [Mass ratio] 26.8 mg/mg High 12.0-20.0 [facility] Comment on above: Performed By: #### 5 902-2 #### [facility] [address] [place] [address] 56730 Hemogram and platelets WO di fferential panel (Bld)on 10-31-2023 Erythrocyte distribution width (RBC) [Ratio] 19.0 % High 11.0-14.8 [facility] Comment on above: Performed By: #### 5 902-2 #### [facility] [address] [place] [address] 89368 Hematocrit (Bld) [Volume fraction] 28.9 % Low 34.3-47.9 [facility] Comment on above: Performed By: #### 5 902-2 #### [facility] [address] [place] [address] 48258 Hemoglobin (Bld) [Mass/Vol] 8.8 g/dL Low 12.0-16.0 [facility] Comment on above: Performed By: #### 5 902-2 #### [facility] [address] [place] [address] 48288 MCH 26.7 pcg Low 27.0-34.0 [facility] Comment on above: Performed By: #### 5 90-2 #### [facility] [address] [place] [address] 94466 MCHC (RBC) [Mass/Vol] 30.4 g/dL Low 30.8-35.3 [facility] Comment on above: Performed By: #### 5 90-2 #### [facility] [address] [place] [address] 47180 MCV (RBC) [Entitic vol] 87.8 fL Normal 80.0-97.0 [facility] Comment on above: Performed By: #### 5 902-2 #### [facility] [address] [place] [address] 42311 Platelet mean volume (Bld) [Entitic vol] 9.3 fL Normal 6.2-12.1 [facility] Comment on above: Performed By: #### 5 90-2 #### [facility] [address] [place] [address] 84460 Platelets (Bld) [#/Vol] 369 10*3/uL Normal 142-424 [facility] Comment on above: Performed By: #### 5 902-2 #### [facility] [address] [place] [address] 36748 RBC (Bld) [#/Vol] 3.29 10*6/uL Low 3.74-5.34 [facility] Comment on above: Performed By: #### 5 90-2 #### [facility] [address] [place] [address] 46089 WBC (Bld) [#/Vol] 7.3 10*3/uL Normal 4.6-10.2 [facility] Comment on above: Performed By: #### 5 902-2 #### [facility] [address] [place] [address] 44796 PT Coag (PPP) [Time]on 10-30 INR Coag (PPP) [Relative time] 2.8 {INR} Normal <=5.0 [facility] Comment on above: Order Comment: The r ecommended therapeutic INR range for most cardiac indications is 2.0-3.0 For high intensity therapy (i.e. mechanical heart valves), the recommended range is 2.5-3.5 Performed By: #### 5 902-2 #### [facility] ([facility]) LAB [address] [place] [address] 23456 Prothrombin timeon PT Coag (PPP) [Time] 29.2 s High 11.9-14.7 [facility] Comment on above: Order Comment: The r ecommended therapeutic INR range for most cardiac indications is 2.0-3.0 For high intensity therapy (i.e. mechanical heart valves), the recommended range is 2.5-3.5 Performed By: #### 5 902-2 #### [facility] ([facility]) LAB [address] [place] [address] 80078 Basic metabolic 2000 panelon 10-30-2023 Anion gap [Moles/Vol] 7 mmol/L Normal 6-18 [facility] Comment on above: Performed By: #### 2 4321-2 #### [facility] ([facility]) LAB [address] [place] [address] 77473 Calcium [Mass/Vol] 8.3 mg/dL Low 8.9-10.3 [facility] Comment on above: Performed By: #### 2 4321-2 #### [facility] [address] [place] [address] 53661 Chloride [Moles/Vol] 104 mmol/L Normal 98-107 [facility] Comment on above: Performed By: #### 2 4321-2 #### [facility] [address] [place] [address] CO2 [Moles/Vol] 22 mmol/L Normal 22-32 [facility] Comment on above: Performed By: #### 2 4321-2 #### [facility] [address] [place] [address] 67479 Creatinine [Mass/Vol] 1.20 mg/dL Normal 0.60-1.30 [facility] Comment on above: Performed By: #### 2 4321-2 #### [facility] [address] [place] [address] 96110 GFR/1.73 sq M.predicted among non-blacks MDRD (S/P/Bld) [Vol rate/Area] 52 mL/min/{1.73_m2} Low >=60 [facility] Comment on above: Result Comment: Calc ulation based on the?Chronic Kidney Disease Epidemiology Collaboration (CKD-EPI) equation refit?without adjustment for race. Performed By: #### 2 4321-2 #### [facility] [address] [place] [address] 44608 Glucose [Mass/Vol] 79 mg/dL Normal 70-99 [facility] Comment on above: Performed By: #### 2 4321-2 #### [facility] [address] [place] [address] 40125 Potassium [Moles/Vol] 4.4 mmol/L Normal 3.6-5.1 [facility] Comment on above: Performed By: #### 2 4321-2 #### [facility] [address] [place] [address] 94911 Sodium [Moles/Vol] 133 mmol/L Low 136-145 [facility] Comment on above: Performed By: #### 2 4321-2 #### [facility] [address] [place] [address] 66935 Urea nitrogen [Mass/Vol] 29 mg/dL High 8-20 [facility] Comment on above: Performed By: #### 2 4321-2 #### [facility] [address] [place] [address] 10231 Urea nitrogen/Creatinine [Mass ratio] 24.2 mg/mg High 12.0-20.0 [facility] Comment on above: Performed By: #### 2 4321-2 #### [facility] [address] [place] [address] 26664 Hemogram and platelets WO di fferential panel (Bld)on 10-30-2023 Erythrocyte distribution width (RBC) [Ratio] 19.1 % High 11.0-14.8 [facility] Comment on above: Performed By: #### 5 902-2 #### [facility] ([facility] LAB [address] [place] [address] 96378 Hematocrit (Bld) [Volume fraction] 29.6 % Low 34.3-47.9 [facility] Comment on above: Performed By: #### 5 902-2 #### [facility] ([facility]) LAB [address] [place] [address] 88051 Hemoglobin (Bld) [Mass/Vol] 9.1 g/dL Low 12.0-16.0 [facility] Comment on above: Performed By: #### 5 902-2 #### [facility] ([facility]) LAB [address] [place] [address] 14562 MCH 26.8 pcg Low 27.0-34.0 [facility] Comment on above: Performed By: #### 5 902-2 #### [facility] ([facility]) LAB [address] [place] [address] 17261 MCHC (RBC) [Mass/Vol] 30.7 g/dL Low 30.8-35.3 [facility] Comment on above: Performed By: #### 5 902-2 #### [facility] ([facility]) [facility] [address] [place] [address] 86247 MCV (RBC) [Entitic vol] 87.1 fL Normal 80.0-97.0 [facility] Comment on above: Performed By: #### 5 902-2 #### [facility] [place] [facility] [address] [place] [address] 56511 Platelet mean volume (Bld) [Entitic vol] 9.5 fL Normal 6.2-12.1 [facility] Comment on above: Performed By: #### 5 902-2 #### [facility] [place] [facility] [address] [place] [address] 80275 Platelets (Bld) [#/Vol] 338 10*3/uL Normal 142-424 [facility] Comment on above: Performed By: #### 902-2 #### [facility] [place] [facility] [address] [place] [address] 77223 RBC (Bld) [#/Vol] 3.40 10*6/uL Low 3.74-5.34 [facility] Comment on above: Performed By: #### 902-2 #### [facility] [address] [place] [address] 54363 WBC (Bld) [#/Vol] 5.7 10*3/uL Normal 4.6-10.2 [facility] Comment on above: Performed By: #### 902-2 #### [facility] [address] [place] [address] 11433 Nuclear IgG IA Ql (S)on Amorphous Crystals, Urine Moderate Abnormal None [facility] Comment on above: Performed By: #### 902-2 #### [facility] [address] [place] [address] 11980 Bacteria, Urine Rare Abnormal None [facility] Comment on above: Performed By: #### 902-2 #### [facility] [address] [place] [address] 87321 Bilirubin, Urine Negative Normal Negative [facility] Comment on above: Performed By: #### -2 #### [facility] [place] [address] [place] [address] Blood, Urine 1+ Abnormal Negative, Trace [facility] Comment on above: Performed By: #### -2 #### [facility] [place] [facility] [address] [place] [address] Clarity (U) Hazy Abnormal Clear [facility] Comment on above: Performed By: #### -2 #### [facility] [place] [facility] [address] [place] [address] Color (U) Yellow Normal Yellow [facility] Comment on above: Performed By: #### -2 #### [facility] [place] [facility] [address] [place] [address] 48324 Glucose Ql (U) Normal Normal Normal [facility] Comment on above: Performed By: #### -2 #### [facility] [place] [facility] [address] [place] [address] 21829 Ketones Ql (U) Negative Normal Negative [facility] Comment on above: Performed By: #### -2 #### [facility] [place] [facility] [address] [place] [address] Leukocytes, Urine 75 WBCs/mcL Abnormal Negative [facility] Comment on above: Performed By: #### -2 #### [facility] [place] [facility] [address] [place] [address] 25348 Mucus, UA Rare Abnormal None [facility] Comment on above: Performed By: #### -2 #### [facility] [place] [facility] [address] [place] [address] 63435 Nitrite, Urine Negative Normal Negative [facility] Comment on above: Performed By: #### -2 #### [facility] [place] [facility] [address] [place] [address] 31786 pH (U) 7.5 [pH] Normal 5.0-8.0 [facility] Comment on above: Performed By: #### 5 902-2 #### [facility] ([facility]) [facility] [address] [place] [address] Protein (U) [Mass/Vol] 50 mg/dL Abnormal Negative [facility] Comment on above: Performed By: #### 5 902-2 #### [facility] ([facility]) [facility] [address] [place] [address] 01216 RBC LM.HPF (Urine sed) [#/Area] 3 /[HPF] Normal 0-5 [facility] Comment on above: Performed By: #### 5 902-2 #### [facility] ([facility]) LAB [address] [place] [address] 89157 Specific [place] Urine 1.024 Normal 1.002 -1.03 0 [facility] Comment on above: Performed By: #### 5 902-2 #### [facility] ([facility]) [facility] [address] [place] [address] 37693 Squamous Epithelial, Urine Rare Abnormal None [facility] Comment on above: Performed By: #### 5 902-2 #### [facility] ([facility]) [facility] [address] [place] [address] 61683 Triple Phosphate Crystals, Urine Rare Abnormal None [facility] Comment on above: Performed By: #### 5 902-2 #### [facility] ([facility]) [facility] [address] [place] [address] 65218 Urobilinogen, Urine Normal Normal Normal [facility] Comment on above: Performed By: #### 5 902-2 #### [facility] ([facility]) [facility] [address] [place] [address] 70736 WBC LM.HPF (Urine sed) [#/Area] 19 /[HPF] High 0-5 [facility] Comment on above: Performed By: #### 5 902-2 #### [facility] ([facility]) [facility] [address] [place] [address] 40750 PT Coag (PPP) [Time]on 10-29 INR Coag (PPP) [Relative time] 2.5 {INR} Normal <=5.0 [facility] Comment on above: Order Comment: The r ecommended therapeutic INR range for most cardiac indications is 2.0-3.0 For high intensity therapy (i.e. mechanical heart valves), the recommended range is 2.5-3.5 Performed By: #### 5 902-2 #### [facility] ([facility]) [facility] [address] [place] [address] Prothrombin timeon PT Coag (PPP) [Time] 26.6 s High 11.9-14.7 [facility] Comment on above: Order Comment: The r ecommended therapeutic INR range for most cardiac indications is 2.0-3.0 For high intensity therapy (i.e. mechanical heart valves), the recommended range is 2.5-3.5 Performed By: #### 5 902-2 #### [facility] ([facility]) [facility] [address] [place] [address] 04886 Sodium (U) [Moles/Vol]on Creatinine, Urine 76.8 mg/dL Normal [facility] Comment on above: Order Comment: No re ference range has been established for this assay (test result). Performed By: #### 2 4321-2 #### [facility] ([facility]) LAB [address] [place] [address] PT Coag (PPP) [Time]on 10-28 INR Coag (PPP) [Relative time] 2.6 {INR} Normal <=5.0 [facility] Comment on above: Order Comment: The r ecommended therapeutic INR range for most cardiac indications is 2.0-3.0 For high intensity therapy (i.e. mechanical heart valves), the recommended range is 2.5-3.5 Performed By: #### 5 902-2 #### [facility] ([facility]) [facility] [address] [place] [address] Prothrombin timeon 4 PT Coag (PPP) [Time] 27.3 s High 11.9-14.7 [facility] Comment on above: Order Comment: The r ecommended therapeutic INR range for most cardiac indications is 2.0-3.0 For high intensity therapy (i.e. mechanical heart valves), the recommended range is 2.5-3.5 Performed By: #### 5 902-2 #### [facility] ([facility]) [facility] [address] [place] [address] PT Coag (PPP) [Time]on 10-27 INR Coag (PPP) [Relative time] 2.6 {INR} Normal <=5.0 [facility] Comment on above: Order Comment: The r ecommended therapeutic INR range for most cardiac indications is 2.0-3.0 For high intensity therapy (i.e. mechanical heart valves), the recommended range is 2.5-3.5 Performed By: #### 5 902-2 #### [facility] ([facility]) [facility] [address] [place] [address] Prothrombin timeon 4 PT Coag (PPP) [Time] 27.3 s High 11.9-14.7 [facility] Comment on above: Order Comment: The r ecommended therapeutic INR range for most cardiac indications is 2.0-3.0 For high intensity therapy (i.e. mechanical heart valves), the recommended range is 2.5-3.5 Performed By: #### 5 902-2 #### [facility] ([facility]) [facility] [address] [place] [address] Comprehensive metabolic 2000 panelon 10-27-2023 Albumin [Mass/Vol] 2.7 g/dL Low 3.5-4.8 [facility] Comment on above: Performed By: #### 2 4323-8 #### [facility] ([facility]) [facility] [address] [place] [address] ALP [Catalytic activity/Vol] 59 U/L Normal 32-91 [facility] Comment on above: Performed By: #### 2 432-8 #### [facility] [place] [facility] [address] [place] [address] ALT [Catalytic activity/Vol] 21 U/L Normal 7-52 [facility] Comment on above: Performed By: #### 2 432-8 #### [facility] [place] [facility] [address] [place] [address] Anion gap [Moles/Vol] 9 mmol/L Normal 6-18 [facility] Comment on above: Performed By: #### 2 432-8 #### [facility] [place] [facility] [address] [place] [address] AST [Catalytic activity/Vol] 34 U/L Normal 15-41 [facility] Comment on above: Performed By: #### 2 432-8 #### [facility] [place] [facility] [address] [place] [address] Bilirubin [Mass/Vol] 0.5 mg/dL Normal 0.3-1.2 [facility] Comment on above: Performed By: #### 2 432-8 #### [facility] [place] [facility] [address] [place] [address] Calcium [Mass/Vol] 8.4 mg/dL Low 8.9-10.3 [facility] Comment on above: Performed By: #### 2 432-8 #### [facility] [place] [facility] [address] [place] [address] Chloride [Moles/Vol] 106 mmol/L Normal 98-107 [facility] Comment on above: Performed By: #### 2 4323-8 #### [facility] [address] [place] [address] CO2 [Moles/Vol] 20 mmol/L Low 22-32 [facility] Comment on above: Performed By: #### 2 4323-8 #### [facility] [address] [place] [address] Creatinine [Mass/Vol] 1.22 mg/dL Normal 0.60-1.30 [facility] Comment on above: Performed By: #### 2 4323-8 #### [facility] [address] [place] [address] 51731 GFR/1.73 sq M.predicted among non-blacks MDRD (S/P/Bld) [Vol rate/Area] 51 mL/min/{1.73_m2} Low >=60 [facility] Comment on above: Result Comment: Calc ulation based on the?Chronic Kidney Disease Epidemiology Collaboration (CKD-EPI) equation refit?without adjustment for race. Performed By: #### 2 4323-8 #### [facility] [address] [place] [address] 28735 Glucose [Mass/Vol] 78 mg/dL Normal 70-99 [facility] Comment on above: Performed By: #### 2 432-8 #### [facility] [address] [place] [address] 25674 Potassium [Moles/Vol] 4.6 mmol/L Normal 3.6-5.1 [facility] Comment on above: Performed By: #### 2 432-8 #### [facility] [address] [place] [address] 95177 Protein [Mass/Vol] 6.4 g/dL Normal 6.1-7.9 [facility] Comment on above: Performed By: #### 2 4323-8 #### [facility] [address] [place] [address] 10942 Sodium [Moles/Vol] 135 mmol/L Low 136-145 [facility] Comment on above: Performed By: #### 2 4323-8 #### [facility] [address] [place] [address] 02155 Urea nitrogen [Mass/Vol] 33 mg/dL High 8-20 [facility] Comment on above: Performed By: #### 2 4323-8 #### [facility] [address] [place] [address] 53235 Urea nitrogen/Creatinine [Mass ratio] 27.0 mg/mg High 12.0-20.0 [facility] Comment on above: Performed By: #### 2 4323-8 #### [facility] [address] [place] [address] 77922 Hemogram and platelets WO di fferential panel (Bld)on 10-27-2023 Erythrocyte distribution width (RBC) [Ratio] 19.0 % High 11.0-14.8 [facility] Comment on above: Performed By: #### 2 4321-2 #### [facility] [address] [place] [address] 80251 Hematocrit (Bld) [Volume fraction] 28.1 % Low 34.3-47.9 [facility] Comment on above: Performed By: #### 2 4321-2 #### [facility] [address] [place] [address] 90032 Hemoglobin (Bld) [Mass/Vol] 8.7 g/dL Low 12.0-16.0 [facility] Comment on above: Performed By: #### 2 4321-2 #### [facility] [address] [place] [address] 64820 MCH 26.4 pcg Low 27.0-34.0 [facility] Comment on above: Performed By: #### 2 4321-2 #### [facility] [address] [place] [address] 38142 MCHC (RBC) [Mass/Vol] 31.0 g/dL Normal 30.8-35.3 [facility] Comment on above: Performed By: #### 2 4321-2 #### [facility] [address] [place] [address] 07112 MCV (RBC) [Entitic vol] 85.2 fL Normal 80.0-97.0 [facility] Comment on above: Performed By: #### 2 4321-2 #### [facility] [address] [place] [address] 87719 Platelet mean volume (Bld) [Entitic vol] 9.2 fL Normal 6.2-12.1 [facility] Comment on above: Performed By: #### 2 4321-2 #### [facility] [address] [place] [address] 90002 Platelets (Bld) [#/Vol] 396 10*3/uL Normal 142-424 [facility] Comment on above: Performed By: #### 2 4321-2 #### [facility] [address] [place] [address] 72564 RBC (Bld) [#/Vol] 3.30 10*6/uL Low 3.74-5.34 [facility] Comment on above: Performed By: #### 2 4321-2 #### [facility] [address] [place] [address] 48913 WBC (Bld) [#/Vol] 7.2 10*3/uL Normal 4.6-10.2 [facility] Comment on above: Performed By: #### 2 4321-2 #### [facility] [address] [place] [address] 67382 PT Coag (PPP) [Time]on 10-26 INR Coag (PPP) [Relative time] 2.5 {INR} Normal <=5.0 [facility] Comment on above: Order Comment: The r ecommended therapeutic INR range for most cardiac indications is 2.0-3.0 For high intensity therapy (i.e. mechanical heart valves), the recommended range is 2.5-3.5 Performed By: #### 5 902-2 #### [facility] [address] [place] [address] 64251 Prothrombin timeon PT Coag (PPP) [Time] 26.3 s High 11.9-14.7 [facility] Comment on above: Order Comment: The r ecommended therapeutic INR range for most cardiac indications is 2.0-3.0 For high intensity therapy (i.e. mechanical heart valves), the recommended range is 2.5-3.5 Performed By: #### 5 902-2 #### [facility] ([facility] [address] [place] [address] 35063 Basic metabolic 2000 panelon 10-26-2023 Iron [Mass/Vol] 25 ug/dL Low 37-145 [facility] Comment on above: Performed By: #### 2 4321-2 #### [facility] [address] [place] [address] 43931 Iron Saturation 12 % Low 20-55 [facility] Comment on above: Performed By: #### 2 4321-2 #### [facility] ([facility] [address] [place] [address] 43068 TIBC 214 mcg/dL Low 228-428 [facility] Comment on above: Performed By: #### 2 4321-2 #### [facility] ([facility] [address] [place] [address] 73891 Hemogram and platelets WO di fferential panel (Bld)on 10-26-2023 Erythrocyte distribution width (RBC) [Ratio] 18.9 % High 11.0-14.8 [facility] Comment on above: Performed By: #### 2 4317-0 #### [facility] ([facility] [address] [place] [address] 43398 Hematocrit (Bld) [Volume fraction] 28.9 % Low 34.3-47.9 [facility] Comment on above: Performed By: #### 2 4317-0 #### [facility] ([facility] [address] [place] [address] 27602 Hemoglobin (Bld) [Mass/Vol] 9.0 g/dL Low 12.0-16.0 [facility] Comment on above: Performed By: #### 2 4317-0 #### [facility] [address] [place] [address] 01087 MCH 26.4 pcg Low 27.0-34.0 [facility] Comment on above: Performed By: #### 2 4317-0 #### [facility] [address] [place] [address] 61266 MCHC (RBC) [Mass/Vol] 31.1 g/dL Normal 30.8-35.3 [facility] Comment on above: Performed By: #### 2 4317-0 #### [facility] [address] [place] [address] 09202 MCV (RBC) [Entitic vol] 84.8 fL Normal 80.0-97.0 [facility] Comment on above: Performed By: #### 2 4317-0 #### [facility] [address] [place] [address] 98828 Platelet mean volume (Bld) [Entitic vol] 9.1 fL Normal 6.2-12.1 [facility] Comment on above: Performed By: #### 2 4317-0 #### [facility] [address] [place] [address] 43890 Platelets (Bld) [#/Vol] 417 10*3/uL Normal 142-424 [facility] Comment on above: Performed By: #### 2 4317-0 #### [facility] [address] [place] [address] 49811 RBC (Bld) [#/Vol] 3.41 10*6/uL Low 3.74-5.34 [facility] Comment on above: Performed By: #### 2 4317-0 #### [facility] [address] [place] [address] 01969 WBC (Bld) [#/Vol] 7.5 10*3/uL Normal 4.6-10.2 [facility] Comment on above: Performed By: #### 2 4317-0 #### [facility] [address] [place] [address] 95001 PT Coag (PPP) [Time]on 10-25 INR Coag (PPP) [Relative time] 2.1 {INR} Normal <=5.0 [facility] Comment on above: Order Comment: The r ecommended therapeutic INR range for most cardiac indications is 2.0-3.0 For high intensity therapy (i.e. mechanical heart valves), the recommended range is 2.5-3.5 Performed By: #### 5 902-2 #### [facility] [address] [place] [address] 61630 Prothrombin timeon PT Coag (PPP) [Time] 23.2 s High 11.9-14.7 [facility] Comment on above: Order Comment: The r ecommended therapeutic INR range for most cardiac indications is 2.0-3.0 For high intensity therapy (i.e. mechanical heart valves), the recommended range is 2.5-3.5 Performed By: #### 5 902-2 #### [facility] [address] [place] [address] 49681 Basic metabolic 2000 panelon 10-25-2023 Anion gap [Moles/Vol] 9 mmol/L Normal 6-18 [facility] Comment on above: Performed By: #### 5 902-2 #### [facility] [address] [place] [address] 70747 Calcium [Mass/Vol] 8.4 mg/dL Low 8.9-10.3 [facility] Comment on above: Performed By: #### 5 902-2 #### [facility] [address] [place] [address] 67158 Chloride [Moles/Vol] 104 mmol/L Normal 98-107 [facility] Comment on above: Performed By: #### 5 902-2 #### [facility] [address] [place] [address] 16775 CO2 [Moles/Vol] 20 mmol/L Low 22-32 [facility] Comment on above: Performed By: #### 5 902-2 #### [facility] [address] [place] [address], [place] [address] Creatinine [Mass/Vol] 1.25 mg/dL Normal 0.60-1.30 [facility] Comment on above: Performed By: #### 5 902-2 #### [facility] [place] [facility] [address] [place] [address] 19970 GFR/1.73 sq M.predicted among non-blacks MDRD (S/P/Bld) [Vol rate/Area] 49 mL/min/{1.73_m2} Low >=60 [facility] Comment on above: Result Comment: Calc ulation based on the?Chronic Kidney Disease Epidemiology Collaboration (CKD-EPI) equation refit?without adjustment for race. Performed By: #### 5 902-2 #### [facility] ([facility] [address] [place] [address] 51292 Glucose [Mass/Vol] 80 mg/dL Normal 70-99 [facility] Comment on above: Performed By: #### 5 902-2 #### [facility] [address] [place] [address] 94128 Potassium [Moles/Vol] 4.6 mmol/L Normal 3.6-5.1 [facility] Comment on above: Performed By: #### 5 902-2 #### [facility] [address] [place] [address] 45368 Sodium [Moles/Vol] 133 mmol/L Low 136-145 [facility] Comment on above: Performed By: #### 5 902-2 #### [facility] [address] [place] [address] 53171 Urea nitrogen [Mass/Vol] 27 mg/dL High 8-20 [facility] Comment on above: Performed By: #### 5 902-2 #### [facility] [address] [place] [address] 33825 Urea nitrogen/Creatinine [Mass ratio] 21.6 mg/mg High 12.0-20.0 [facility] Comment on above: Performed By: #### 5 902-2 #### [facility] ([facility]) [facility] [address] [place] [address] Blood type and Indirect anti body screen panel (Bld)on 10-25-2023 ABO group Nom (Bld) O Normal [facility] Comment on above: Performed By: #### 3 4532-2 #### [facility] [address] [place] [address] Rh Type Positive Normal [facility] Comment on above: Performed By: #### 3 4532-2 #### [facility] [address] [place] [id number] Hemogram and platelets WO di fferential panel (Bld)on 10-25-2023 Erythrocyte distribution width (RBC) [Ratio] 18.3 % High 11.0-14.8 [facility] Comment on above: Performed By: #### 2 4317-0 #### [facility] ([facility]) [facility] [address] [place] [address] Hematocrit (Bld) [Volume fraction] 22.1 % Low 34.3-47.9 [facility] Comment on above: Performed By: #### 2 4317-0 #### [facility] ([facility]) [facility] [address] [place] [address]647 Hemoglobin (Bld) [Mass/Vol] 6.7 g/dL Critically low 12.0-16.0 [facility] Comment on above: Performed By: #### 2 4317-0 #### [facility] ([facility]) [facility] [address] [place] [address] MCH 27.0 pcg Normal 27.0-34.0 [facility] Comment on above: Performed By: #### 2 4317-0 #### [facility] ([facility]) [facility] [address] [place] [address] MCHC (RBC) [Mass/Vol] 30.3 g/dL Low 30.8-35.3 [facility] Comment on above: Performed By: #### 2 4317-0 #### [facility] [place] ([facility] [address] [place] [address] MCV (RBC) [Entitic vol] 89.1 fL Normal 80.0-97.0 [facility] Comment on above: Performed By: #### 2 4317-0 #### [facility] [place] ([facility] [address] [place] [address] 40863 Platelet mean volume (Bld) [Entitic vol] 9.1 fL Normal 6.2-12.1 [facility] Comment on above: Performed By: #### 2 4317-0 #### [facility] [place] ([facility] [address] [place] [address] 11264 Platelets (Bld) [#/Vol] 434 10*3/uL High 142-424 [facility] Comment on above: Performed By: #### 2 4317-0 #### [facility] [place] [facility] [address] [place] [address] 02233 RBC (Bld) [#/Vol] 2.48 10*6/uL Low 3.74-5.34 [facility] Comment on above: Performed By: #### 2 4317-0 #### [facility] [place] [facility] [address] [place] [address] 13737 WBC (Bld) [#/Vol] 8.6 10*3/uL Normal 4.6-10.2 [facility] Comment on above: Performed By: #### 2 4317-0 #### [facility] [place] ([facility] [address] [place] [address]75 PT Coag (PPP) [Time]on 10-24 INR Coag (PPP) [Relative time] 2.0 {INR} Normal <=5.0 [facility] Comment on above: Order Comment: The r ecommended therapeutic INR range for most cardiac indications is 2.0-3.0 For high intensity therapy (i.e. mechanical heart valves), the recommended range is 2.5-3.5 Performed By: #### 5 902-2 #### [facility] ([facility]) [facility] [address] [place] [address] Prothrombin timeon 4 PT Coag (PPP) [Time] 22.0 s High 11.9-14.7 [facility] Comment on above: Order Comment: The r ecommended therapeutic INR range for most cardiac indications is 2.0-3.0 For high intensity therapy (i.e. mechanical heart valves), the recommended range is 2.5-3.5 Performed By: #### 5 902-2 #### [facility] ([facility]) [facility] [address] [place] [address] PT Coag (PPP) [Time]on 10-23 INR Coag (PPP) [Relative time] 1.8 {INR} Normal <=5.0 [facility] Comment on above: Order Comment: The r ecommended therapeutic INR range for most cardiac indications is 2.0-3.0 For high intensity therapy (i.e. mechanical heart valves), the recommended range is 2.5-3.5 Performed By: #### 5 902-2 #### [facility] ([facility]) [facility] [address] [place] [address] Prothrombin timeon 4 PT Coag (PPP) [Time] 20.2 s High 11.9-14.7 [facility] Comment on above: Order Comment: The r ecommended therapeutic INR range for most cardiac indications is 2.0-3.0 For high intensity therapy (i.e. mechanical heart valves), the recommended range is 2.5-3.5 Performed By: #### 5 902-2 #### [facility] ([facility]) [facility] [address] [place] [address] PT Coag (PPP) [Time]on 10-22 INR Coag (PPP) [Relative time] 1.7 {INR} Normal <=5.0 [facility] Comment on above: Order Comment: The r ecommended therapeutic INR range for most cardiac indications is 2.0-3.0For high intensity therapy (i.e. mechanical heart valves), the recommended range is 2.5-3.5 Performed By: #### 2 4321-2 #### [facility] ([facility]) [facility] [address] [place] [address] Prothrombin timeon 4 PT Coag (PPP) [Time] 19.6 s High 11.9-14.7 [facility] Comment on above: Order Comment: The r ecommended therapeutic INR range for most cardiac indications is 2.0-3.0For high intensity therapy (i.e. mechanical heart valves), the recommended range is 2.5-3.5 Performed By: #### 2 4321-2 #### [facility] ([facility]) [facility] [address] [place] [address] PT Coag (PPP) [Time]on 10-20 INR Coag (PPP) [Relative time] 2.9 {INR} Normal <=5.0 [facility] Comment on above: Order Comment: The r ecommended therapeutic INR range for most cardiac indications is 2.0-3.0 For high intensity therapy (i.e. mechanical heart valves), the recommended range is 2.5-3.5 Performed By: #### 5 902-2 #### [facility] ([facility]) [facility] [address] [place] [address] Prothrombin timeon 4 PT Coag (PPP) [Time] 29.5 s High 11.9-14.7 [facility] Comment on above: Order Comment: The r ecommended therapeutic INR range for most cardiac indications is 2.0-3.0 For high intensity therapy (i.e. mechanical heart valves), the recommended range is 2.5-3.5 Performed By: #### 5 902-2 #### [facility] ([facility]) [facility] [address] [place] [address] CALCIUM, IONIZEDon 4 CALCIUM IONIZED 4.4 mg/dL Low 4.5-5.3 [facility] Comment on above: Performed By: #### 4 5190 ####[facility] [address] [place], [place] [address] Glenn Gudino M.D. [id number] CBCon 10-20-2023 AUTO NRBC 0.0 % Normal [facility] Comment on above: Performed By: #### 4 5218 ####[facility] [address] [place], [place] [address] Glenn Gudino M.D. [id number] AUTO NRBC ABS COUNT 0.00 K/mcL Normal 0.00-0.00 [facility] Comment on above: Performed By: #### 4 5218 ####[facility] [address] [place], [place] [address] Glenn Gudino M.D. [id number] Erythrocyte distribution width (RBC) [Ratio] 17.4 % High 11.6-14.8 [facility] Comment on above: Performed By: #### 4 5218 ####[facility] [address] [place], [place] [address] Glenn Gudino M.D. [id number] Hematocrit (Bld) [Volume fraction] 23.6 % Low 36.0-46.0 [facility] Comment on above: Performed By: #### 4 5218 ####[facility] [address] [place], [place] [address] Glenn Gudino M.D. [id number] Hemoglobin (Bld) [Mass/Vol] 7.4 g/dL Low 12.0-16.0 [facility] Comment on above: Performed By: #### 4 5218 ####[facility] [address] [place], [place] [address] Glenn Gudino M.D. [id number] MCH (RBC) [Entitic mass] 27.4 pg Normal 26.0-34.0 [facility] Comment on above: Performed By: #### 4 5218 ####[facility] [address] [place] [address] Glenn Gudino M.D. [id number] MCV (RBC) [Entitic vol] 87.4 fL Normal 80.0-100.0 [facility] Comment on above: Performed By: #### 4 5218 ####[facility] [address] [place] [address] Glenn Gudino M.D. [id number] MEAN CORPUSCULAR HEMOGLOBIN CONC 31.4 g/dL Normal 31.0-37.0 [facility] Comment on above: Performed By: #### 4 5218 ####[facility] [address] [place] [address] Glenn Gudino M.D. [id number] Platelet mean volume (Bld) [Entitic vol] 9.3 fL Low 9.4-12.4 [facility] Comment on above: Performed By: #### 4 5218 ####[facility] [address] [place], [place] [address] Glenn Gudino M.D. [id number] Platelets (Bld) [#/Vol] 489 10*3/uL High 150-400 [facility] Comment on above: Performed By: #### 4 5218 ####[facility] [address] [place], [place] [address] Glenn Gudino M.D. [id number] RBC (Bld) [#/Vol] 2.70 10*6/uL Low 4.00-5.20 [facility] Comment on above: Performed By: #### 4 5218 ####[facility] [address] [place], [place] [address] Glenn Gudino M.D. [id number] WBC (Bld) [#/Vol] 12.80 10*3/uL High 4.50-11.00 [facility] Comment on above: Performed By: #### 4 5218 ####[facility] [address] [place] [address] Glenn Gudino M.D. [id number] COMPREHENSIVE METABOLIC PANE Magdaleno 10-20-2023 Albumin [Mass/Vol] 2.3 g/dL Low 3.2-5.2 [facility] Comment on above: Order Comment: [facility] has implemented the eGFR calculation approach that does not have a coefficient for race that conforms to the NKF-ASN Task Force Recommendations. Performed By: #### 4 6126 ####[facility] [address] [place] [address] Glenn Gudino M.D. [id number] ALP [Catalytic activity/Vol] 104 U/L Normal 40-150 [facility] Comment on above: Order Comment: [facility] has implemented the eGFR calculation approach that does not have a coefficient for race that conforms to the NKF-ASN Task Force Recommendations. Performed By: #### 4 6126 ####[facility] [address] [place], [place] [address] Glenn Gudino M.D. [id number] ALT [Catalytic activity/Vol] 26 U/L Normal 0-35 U/L [facility] Comment on above: Order Comment: [facility] has implemented the eGFR calculation approach that does not have a coefficient for race that conforms to the NKF-ASN Task Force Recommendations. Performed By: #### 4 6126 ####[facility] [address] [place] [address] Glenn Gudino M.D. [id number] Anion gap [Moles/Vol] 11 mmol/L Normal 10-20 [facility] Comment on above: Order Comment: [facility] has implemented the eGFR calculation approach that does not have a coefficient for race that conforms to the NKF-ASN Task Force Recommendations. Performed By: #### 4 6126 ####[facility] [address] [place], [place] [address] Glenn Gudino M.D. [id number] AST [Catalytic activity/Vol] 59 U/L High 0-35 U/L [facility] Comment on above: Order Comment: [facility] has implemented the eGFR calculation approach that does not have a coefficient for race that conforms to the NKF-ASN Task Force Recommendations. Performed By: #### 4 6126 ####[facility] [address] [place] [address] Glenn Gudino M.D. [id number] Bilirubin [Mass/Vol] 0.4 mg/dL Normal 0.0-1.3 [facility] Comment on above: Order Comment: [facility] has implemented the eGFR calculation approach that does not have a coefficient for race that conforms to the NKF-ASN Task Force Recommendations. Performed By: #### 4 6126 ####[facility] [address] [place] [address] Glenn Gudino M.D. [id number] Calcium [Mass/Vol] 7.9 mg/dL Low 8.4-10.2 [facility] Comment on above: Order Comment: [facility] has implemented the eGFR calculation approach that does not have a coefficient for race that conforms to the NKF-ASN Task Force Recommendations. Performed By: #### 4 6126 ####[facility] [address] [place], [place] [address] Glenn Gudino M.D. [id number] Chloride [Moles/Vol] 105 mmol/L Normal 98-108 [facility] Comment on above: Order Comment: [facility] has implemented the eGFR calculation approach that does not have a coefficient for race that conforms to the NKF-ASN Task Force Recommendations. Performed By: #### 4 6126 ####[facility] [address] [place], [place] [address] Glenn Gudino M.D. [id number] Creatinine [Mass/Vol] 0.84 mg/dL Normal 0.60-1.10 [facility] Comment on above: Order Comment: [facility] has implemented the eGFR calculation approach that does not have a coefficient for race that conforms to the NKF-ASN Task Force Recommendations. Performed By: #### 4 6126 ####[facility] [address] [place], [place] [address] Glenn Gudino M.D. [id number] EGFR 79 mL/min/1.73 m2 Normal >=60 [facility] Comment on above: Order Comment: [facility] has implemented the eGFR calculation approach that does not have a coefficient for race that conforms to the NKF-ASN Task Force Recommendations. Result Comment: Joi mated GFR was calculated using the 2020 CKD-EPI creatinine equation. Performed By: #### 4 6126 ####[facility] [address] [place], [place] [address] Glenn Gudino M.D. [id number] Glucose [Mass/Vol] 106 mg/dL High 65-99 [facility] Comment on above: Order Comment: [facility] has implemented the eGFR calculation approach that does not have a coefficient for race that conforms to the NKF-ASN Task Force Recommendations. Performed By: #### 4 6126 ####[facility] [address] [place], [place] [address] Glenn Gudino M.D. [id number] HCO3 (Bld) [Moles/Vol] 23 mmol/L Normal 21-32 [facility] Comment on above: Order Comment: [facility] has implemented the eGFR calculation approach that does not have a coefficient for race that conforms to the NKF-ASN Task Force Recommendations. Performed By: #### 4 6126 ####[facility] [address] [place] [address] Glenn Gudino M.D. [id number] Potassium [Moles/Vol] 4.3 mmol/L Normal 3.5-5.1 [facility] Comment on above: Order Comment: [facility] has implemented the eGFR calculation approach that does not have a coefficient for race that conforms to the NKF-ASN Task Force Recommendations. Performed By: #### 4 6126 ####[facility] [address] [place] [address]53 Glenn Gudino M.D. [id number] Protein [Mass/Vol] 6.2 g/dL Normal 6.0-8.0 [facility] Comment on above: Order Comment: [facility] has implemented the eGFR calculation approach that does not have a coefficient for race that conforms to the NKF-ASN Task Force Recommendations. Performed By: #### 4 6126 ####[facility] [address] [place] [address] Glenn Gudino M.D. [id number] Sodium [Moles/Vol] 135 mmol/L Normal 135-145 [facility] Comment on above: Order Comment: [facility] has implemented the eGFR calculation approach that does not have a coefficient for race that conforms to the NKF-ASN Task Force Recommendations. Performed By: #### 4 6126 ####[facility] [address] [place] [address]17 Glenn Gudino M.D. [id number] Urea nitrogen [Mass/Vol] 21 mg/dL Normal 8-25 [facility] Comment on above: Order Comment: [facility] has implemented the eGFR calculation approach that does not have a coefficient for race that conforms to the NKF-ASN Task Force Recommendations. Performed By: #### 4 6126 ####[facility] [address] [place] [address] Glenn Gudino M.D. [id number] Urea nitrogen/Creatinine [Mass ratio] 25.0 mg/mg High 10.0-20.0 [facility] Comment on above: Order Comment: [facility] has implemented the eGFR calculation approach that does not have a coefficient for race that conforms to the NKF-ASN Task Force Recommendations. Performed By: #### 4 6126 ####[facility] [address] [place] [address] Glenn Gudino M.D. [id number] Disch Summon 10-20-2023 Disch Summ Normal [facility] MAGNESIUM LEVELon 10-20-2023 Magnesium [Mass/Vol] 2.1 mg/dL Normal 1.6-2.4 [facility] Comment on above: Performed By: #### 4 6109 ####[facility] [address] [place] [address] Glenn Gudino M.D. [id number] PHOSPHORUSon 10-20-2023 Phosphate [Mass/Vol] 2.8 mg/dL Normal 2.8-4.1 [facility] Comment on above: Performed By: #### 4 6299 ####[facility] [address] [place] [address]99[address] Glenn Gudino M.D. [id number] PT/INRon 10-20-2023 INR Coag (PPP) [Relative time] 3.6 {INR} High 0.8-1.1 [facility] Comment on above: Order Comment: Jennifer retana the induction phase of oral anticoagulation, the INR may not reflect the anticoagulation status of the patient. Therapeutic ranges for INR's are:Most clinical situations: INR 2.0-3.0Mechanical Prosthetic Valve: INR 2.5-3.5Critical: INR >5.0 Performed By: #### 4 6391 ####[facility] [address] [place] [address] Glenn Gudino M.D. [id number] PT Coag (PPP) [Time] 37.0 s High 11.8-14.3 [facility] Comment on above: Order Comment: Jennifer retana the induction phase of oral anticoagulation, the INR may not reflect the anticoagulation status of the patient. Therapeutic ranges for INR's are:Most clinical situations: INR 2.0-3.0Mechanical Prosthetic Valve: INR 2.5-3.5Critical: INR >5.0 Performed By: #### 4 6391 ####[facility] [address] [place], [place] [address] Glenn Gudino M.D. [id number] CALCIUM, IONIZEDon CALCIUM IONIZED 4.4 mg/dL Low 4.5-5.3 [facility] Comment on above: Performed By: #### 4 5190 ####[facility] [address] [place] [address] Glenn Gudino M.D. [id number] CBCon 10-19-2023 AUTO NRBC 0.0 % Normal [facility] Comment on above: Performed By: #### 4 5218 ####[facility] [address] [place], [place] [address] Glenn Gudino M.D. [id number] AUTO NRBC ABS COUNT 0.00 K/mcL Normal 0.00-0.00 [facility] Comment on above: Performed By: #### 4 5218 ####[facility] [address] [place], [place] [address] Glenn Gudino M.D. [id number] Erythrocyte distribution width (RBC) [Ratio] 17.4 % High 11.6-14.8 [facility] Comment on above: Performed By: #### 4 5218 ####[facility] [address] [place], [place] [address] Glenn Gudino M.D. [id number] Hematocrit (Bld) [Volume fraction] 26.6 % Low 36.0-46.0 [facility] Comment on above: Performed By: #### 4 5218 ####[facility] [address] [place], [place] [address] Glenn Gudino M.D. [id number] Hemoglobin (Bld) [Mass/Vol] 8.3 g/dL Low 12.0-16.0 [facility] Comment on above: Performed By: #### 4 8478 ####[facility] [address] [place] [address]074 Glenn Gudino M.D. [id number] MCH (RBC) [Entitic mass] 27.5 pg Normal 26.0-34.0 [facility] Comment on above: Performed By: #### 4 5218 ####[facility] [address] [place], [place] [address] Glenn Gudino M.D. [id number] MCV (RBC) [Entitic vol] 88.1 fL Normal 80.0-100.0 [facility] Comment on above: Performed By: #### 4 5218 ####[facility] [address] [place] [address] Glenn Gudino M.D. [id number] MEAN CORPUSCULAR HEMOGLOBIN CONC 31.2 g/dL Normal 31.0-37.0 [facility] Comment on above: Performed By: #### 4 5218 ####[facility] [address] [place], [place] [address] Glenn Gudino M.D. [id number] Platelet mean volume (Bld) [Entitic vol] 9.2 fL Low 9.4-12.4 [facility] Comment on above: Performed By: #### 4 5218 ####[facility] [address] [place], [place] [address] Glenn Gudino M.D. [id number] Platelets (Bld) [#/Vol] 485 10*3/uL High 150-400 [facility] Comment on above: Performed By: #### 4 5218 ####[facility] [address] [place], [place] [address] Glenn Gudino M.D. [id number] RBC (Bld) [#/Vol] 3.02 10*6/uL Low 4.00-5.20 [facility] Comment on above: Performed By: #### 4 5218 ####[facility] [address] [place] [address] Glenn Gudino M.D. [id number] WBC (Bld) [#/Vol] 12.60 10*3/uL High 4.50-11.00 [facility] Comment on above: Performed By: #### 4 5218 ####[facility] [address] [place], [place] [address] Glenn Gudino M.D. [id number] COMPREHENSIVE METABOLIC PANE Magdaleno 10-19-2023 Albumin [Mass/Vol] 2.3 g/dL Low 3.2-5.2 [facility] Comment on above: Order Comment: [facility] has implemented the eGFR calculation approach that does not have a coefficient for race that conforms to the NKF-ASN Task Force Recommendations. Performed By: #### 4 6126 ####[facility] [address] [place] [address] Glenn Gudino M.D. [id number] ALP [Catalytic activity/Vol] 103 U/L Normal 40-150 [facility] Comment on above: Order Comment: [facility] has implemented the eGFR calculation approach that does not have a coefficient for race that conforms to the NKF-ASN Task Force Recommendations. Performed By: #### 4 6126 ####[facility] [address] [place] [address]66 Glenn Gudino M.D. [id number] ALT [Catalytic activity/Vol] 23 U/L Normal 0-35 U/L [facility] Comment on above: Order Comment: [facility] has implemented the eGFR calculation approach that does not have a coefficient for race that conforms to the NKF-ASN Task Force Recommendations. Performed By: #### 4 6126 ####[facility] [address] [place] [address] Glenn Gudino M.D. [id number] Anion gap [Moles/Vol] 14 mmol/L Normal 10-20 [facility] Comment on above: Order Comment: [facility] has implemented the eGFR calculation approach that does not have a coefficient for race that conforms to the NKF-ASN Task Force Recommendations. Performed By: #### 4 6126 ####[facility] [address] [place] [address] Glenn Gudino M.D. [id number] AST [Catalytic activity/Vol] 63 U/L High 0-35 U/L [facility] Comment on above: Order Comment: [facility] has implemented the eGFR calculation approach that does not have a coefficient for race that conforms to the NKF-ASN Task Force Recommendations. Performed By: #### 4 6126 ####[facility] [address] [place], [place] [address] Glenn Gudino M.D. [id number] Bilirubin [Mass/Vol] 0.6 mg/dL Normal 0.0-1.3 [facility] Comment on above: Order Comment: [facility] has implemented the eGFR calculation approach that does not have a coefficient for race that conforms to the NKF-ASN Task Force Recommendations. Performed By: #### 4 6126 ####[facility] [address] [place] [address] Glenn Gudino M.D. [id number] Calcium [Mass/Vol] 8.2 mg/dL Low 8.4-10.2 [facility] Comment on above: Order Comment: [facility] has implemented the eGFR calculation approach that does not have a coefficient for race that conforms to the NKF-ASN Task Force Recommendations. Performed By: #### 4 6126 ####[facility] [address] [place] [address] Glenn Gudino M.D. [id number] Chloride [Moles/Vol] 102 mmol/L Normal 98-108 [facility] Comment on above: Order Comment: [facility] has implemented the eGFR calculation approach that does not have a coefficient for race that conforms to the NKF-ASN Task Force Recommendations. Performed By: #### 4 6126 ####[facility] [address] [place] [address] Glenn Gudino M.D. [id number] Creatinine [Mass/Vol] 0.94 mg/dL Normal 0.60-1.10 [facility] Comment on above: Order Comment: [facility] has implemented the eGFR calculation approach that does not have a coefficient for race that conforms to the NKF-ASN Task Force Recommendations. Performed By: #### 4 6126 ####[facility] [address] [place] [address] Glenn Gudino M.D. [id number] EGFR 69 mL/min/1.73 m2 Normal >=60 [facility] Comment on above: Order Comment: [facility] has implemented the eGFR calculation approach that does not have a coefficient for race that conforms to the NKF-ASN Task Force Recommendations. Result Comment: Joi mated GFR was calculated using the 2020 CKD-EPI creatinine equation. Performed By: #### 4 6126 ####[facility] [address] [place] [address]80[address] Glenn Gudino M.D. [id number] Glucose [Mass/Vol] 82 mg/dL Normal 65-99 [facility] Comment on above: Order Comment: [facility] has implemented the eGFR calculation approach that does not have a coefficient for race that conforms to the NKF-ASN Task Force Recommendations. Performed By: #### 4 6126 ####[facility] [address] [place] [address] 87396 Glenn Gudino M.D. [id number] HCO3 (Bld) [Moles/Vol] 22 mmol/L Normal 21-32 [facility] Comment on above: Order Comment: [facility] has implemented the eGFR calculation approach that does not have a coefficient for race that conforms to the NKF-ASN Task Force Recommendations. Performed By: #### 4 6126 ####[facility] [address] [place] [address] 82598 Glenn Gudino M.D. [id number] Potassium [Moles/Vol] 3.7 mmol/L Normal 3.5-5.1 [facility] Comment on above: Order Comment: [facility] has implemented the eGFR calculation approach that does not have a coefficient for race that conforms to the NKF-ASN Task Force Recommendations. Performed By: #### 4 6126 ####[facility] [address] [place] [address] 15218 Glenn Gudino M.D. [id number] Protein [Mass/Vol] 6.6 g/dL Normal 6.0-8.0 [facility] Comment on above: Order Comment: [facility] has implemented the eGFR calculation approach that does not have a coefficient for race that conforms to the NKF-ASN Task Force Recommendations. Performed By: #### 4 6126 ####[facility] [address] [place] [address]329 Glenn Gudino M.D. [id number] Sodium [Moles/Vol] 134 mmol/L Low 135-145 [facility] Comment on above: Order Comment: [facility] has implemented the eGFR calculation approach that does not have a coefficient for race that conforms to the NKF-ASN Task Force Recommendations. Performed By: #### 4 6126 ####[facility] [address] [place] [address] 57520 Glenn Gudino M.D. [id number] Urea nitrogen [Mass/Vol] 22 mg/dL Normal 8-25 [facility] Comment on above: Order Comment: [facility] has implemented the eGFR calculation approach that does not have a coefficient for race that conforms to the NKF-ASN Task Force Recommendations. Performed By: #### 4 6126 ####[facility] [address] [place] [address] 84936 Glenn Gudino M.D. [id number] Urea nitrogen/Creatinine [Mass ratio] 23.4 mg/mg High 10.0-20.0 [facility] Comment on above: Order Comment: [facility] has implemented the eGFR calculation approach that does not have a coefficient for race that conforms to the NKF-ASN Task Force Recommendations. Performed By: #### 4 6126 ####[facility] [address] [place] [address] Glenn Gudino M.D. [id number] MAGNESIUM LEVELon 10-19-2023 Magnesium [Mass/Vol] 1.9 mg/dL Normal 1.6-2.4 [facility] Comment on above: Performed By: #### 4 6109 ####[facility] [address] [place] [address] Glenn Gudino M.D. [id number] PHOSPHORUSon 10-19-2023 Phosphate [Mass/Vol] 2.4 mg/dL Low 2.8-4.1 [facility] Comment on above: Performed By: #### 4 6299 ####[facility] [address] [place], [place] [address] Glenn Gudino M.D. [id number] POTASSIUM LEVELon 10-19-2023 Potassium [Moles/Vol] 3.8 mmol/L Normal 3.5-5.1 [facility] Comment on above: Performed By: #### 4 6351 ####[facility] [address] [place], [place] [address] Glenn Gudino M.D. [id number] PT/INRon 10-19-2023 INR Coag (PPP) [Relative time] 3.6 {INR} High 0.8-1.1 [facility] Comment on above: Order Comment: Jennifer retana the induction phase of oral anticoagulation, the INR may not reflect the anticoagulation status of the patient. Therapeutic ranges for INR's are:Most clinical situations: INR 2.0-3.0Mechanical Prosthetic Valve: INR 2.5-3.5Critical: INR >5.0 Performed By: #### 4 6391 ####[facility] [address] [place] [address] 88476 Glenn Gudino M.D. [id number] PT Coag (PPP) [Time] 36.9 s High 11.8-14.3 [facility] Comment on above: Order Comment: Jennifer retana the induction phase of oral anticoagulation, the INR may not reflect the anticoagulation status of the patient. Therapeutic ranges for INR's are:Most clinical situations: INR 2.0-3.0Mechanical Prosthetic Valve: INR 2.5-3.5Critical: INR >5.0 Performed By: #### 4 6391 ####[facility] [address] [place] [address] Glenn Gudino M.D. [id number] CALCIUM, IONIZEDon CALCIUM IONIZED 4.7 mg/dL Normal 4.5-5.3 [facility] Comment on above: Performed By: #### 4 5190 ####[facility] [address] [place], [place] [address] Glenn Gudino M.D. [id number] CBCon 10-18-2023 AUTO NRBC 0.0 % Normal [facility] Comment on above: Performed By: #### 4 5218 ####[facility] [address] [place], [place] [address] Glenn Gudino M.D. [id number] AUTO NRBC ABS COUNT 0.00 K/mcL Normal 0.00-0.00 [facility] Comment on above: Performed By: #### 4 [id number] ####[facility] [address] [place], [place] [address] Glenn Gudino M.D. [id number] Erythrocyte distribution width (RBC) [Ratio] 17.6 % High 11.6-14.8 [facility] Comment on above: Performed By: #### 4 [id number] ####[facility] [address] [place], [place] [address] Glenn Gudino M.D. [id number] Hematocrit (Bld) [Volume fraction] 25.4 % Low 36.0-46.0 [facility] Comment on above: Performed By: #### 4 [id number] ####[facility] [address] [place] [address] Glenn Gudino M.D. [id number] Hemoglobin (Bld) [Mass/Vol] 8.0 g/dL Low 12.0-16.0 [facility] Comment on above: Performed By: #### 4 [id number] ####[facility] [address] [place] [address] Glenn Gudino M.D. [id number] MCH (RBC) [Entitic mass] 27.1 pg Normal 26.0-34.0 [facility] Comment on above: Performed By: #### 4 [id number] ####[facility] [address] [place], [place] [address] Glenn Gudino M.D. [id number] MCV (RBC) [Entitic vol] 86.1 fL Normal 80.0-100.0 [facility] Comment on above: Performed By: #### 4 [id number] ####[facility] [address] [place], [place] [address] Glenn Gudino M.D. [id number] MEAN CORPUSCULAR HEMOGLOBIN CONC 31.5 g/dL Normal 31.0-37.0 [facility] Comment on above: Performed By: #### 4 [id number] ####[facility] [address] [place], [place] [address] Glenn Gudino M.D. [id number] Platelet mean volume (Bld) [Entitic vol] 9.0 fL Low 9.4-12.4 [facility] Comment on above: Performed By: #### 4 [id number] ####[facility] [address] [place] [address] 84179 Glenn Gudino M.D. [id number] Platelets (Bld) [#/Vol] 463 10*3/uL High 150-400 [facility] Comment on above: Performed By: #### 4 [id number] ####[facility] [address] [place] [address] 69389 Glenn Gudino M.D. [id number] RBC (Bld) [#/Vol] 2.95 10*6/uL Low 4.00-5.20 [facility] Comment on above: Performed By: #### 4 [id number] ####[facility] [address] [place] [address] 05789 Glenn Gudino M.D. [id number] WBC (Bld) [#/Vol] 15.56 10*3/uL High 4.50-11.00 [facility] Comment on above: Performed By: #### 4 [id number] ####[facility] [address] [place] [address] 61973 Glenn Gudino M.D. [id number] COMPREHENSIVE METABOLIC PANE [facility] 10-18-2023 Albumin [Mass/Vol] 2.4 g/dL Low 3.2-5.2 [facility] Comment on above: Order Comment: [facility] has implemented the eGFR calculation approach that does not have a coefficient for race that conforms to the NKF-ASN Task Force Recommendations. Performed By: #### 4 6126 ####[facility] [address] [place] [address] 69106 Glenn Gudino M.D. [id number] ALP [Catalytic activity/Vol] 100 U/L Normal 40-150 [facility] Comment on above: Order Comment: [facility] has implemented the eGFR calculation approach that does not have a coefficient for race that conforms to the NKF-ASN Task Force Recommendations. Performed By: #### 4 6126 ####[facility] [address] [place], [place] [address] Glenn Gudino M.D. [id number] ALT [Catalytic activity/Vol] 26 U/L Normal 0-35 U/L [facility] Comment on above: Order Comment: [facility] has implemented the eGFR calculation approach that does not have a coefficient for race that conforms to the NKF-ASN Task Force Recommendations. Performed By: #### 4 6126 ####[facility] [address] [place] [address] Glnen Gudino M.D. [id number] Anion gap [Moles/Vol] 13 mmol/L Normal 10-20 [facility] Comment on above: Order Comment: [facility] has implemented the eGFR calculation approach that does not have a coefficient for race that conforms to the NKF-ASN Task Force Recommendations. Performed By: #### 4 6126 ####[facility] [address] [place], [place] [address] Glenn Gudino M.D. [id number] AST [Catalytic activity/Vol] 52 U/L High 0-35 U/L [facility] Comment on above: Order Comment: [facility] has implemented the eGFR calculation approach that does not have a coefficient for race that conforms to the NKF-ASN Task Force Recommendations. Performed By: #### 4 6126 ####[facility] [address] [place], [place] [address] Glenn Gudino M.D. [id number] Bilirubin [Mass/Vol] 0.5 mg/dL Normal 0.0-1.3 [facility] Comment on above: Order Comment: [facility] has implemented the eGFR calculation approach that does not have a coefficient for race that conforms to the NKF-ASN Task Force Recommendations. Performed By: #### 4 6126 ####[facility] [address] [place], [place] [address] Glenn Gudino M.D. [id number] Calcium [Mass/Vol] 8.3 mg/dL Low 8.4-10.2 [facility] Comment on above: Order Comment: [facility] has implemented the eGFR calculation approach that does not have a coefficient for race that conforms to the NKF-ASN Task Force Recommendations. Performed By: #### 4 6126 ####[facility] [address] [place] [address] 87364 Glenn Gudino M.D. [id number] Chloride [Moles/Vol] 101 mmol/L Normal 98-108 [facility] Comment on above: Order Comment: [facility] has implemented the eGFR calculation approach that does not have a coefficient for race that conforms to the NKF-ASN Task Force Recommendations. Performed By: #### 4 6126 ####[facility] [address] [place], [place] [address] Glenn Gudino M.D. [id number] Creatinine [Mass/Vol] 0.93 mg/dL Normal 0.60-1.10 [facility] Comment on above: Order Comment: [facility] has implemented the eGFR calculation approach that does not have a coefficient for race that conforms to the NKF-ASN Task Force Recommendations. Performed By: #### 4 6126 ####[facility] [address] [place], [place] [address] Glenn Gudino M.D. [id number] EGFR 70 mL/min/1.73 m2 Normal >=60 [facility] Comment on above: Order Comment: [facility] has implemented the eGFR calculation approach that does not have a coefficient for race that conforms to the NKF-ASN Task Force Recommendations. Result Comment: Joi mated GFR was calculated using the 2020 CKD-EPI creatinine equation. Performed By: #### 4 6126 ####[facility] [address] [place], [place] [address] Glenn Gudino M.D. [id number] Glucose [Mass/Vol] 96 mg/dL Normal 65-99 [facility] Comment on above: Order Comment: [facility] has implemented the eGFR calculation approach that does not have a coefficient for race that conforms to the NKF-ASN Task Force Recommendations. Performed By: #### 4 6126 ####[facility] [address] [place] [address] Glenn Gudino M.D. [id number] HCO3 (Bld) [Moles/Vol] 25 mmol/L Normal 21-32 [facility] Comment on above: Order Comment: [facility] has implemented the eGFR calculation approach that does not have a coefficient for race that conforms to the NKF-ASN Task Force Recommendations. Performed By: #### 4 6126 ####[facility] [address] [place], [place] [address] Glenn Gudino M.D. [id number] Potassium [Moles/Vol] 4.0 mmol/L Normal 3.5-5.1 [facility] Comment on above: Order Comment: [facility] has implemented the eGFR calculation approach that does not have a coefficient for race that conforms to the NKF-ASN Task Force Recommendations. Performed By: #### 4 6126 ####[facility] [address] [place], [place] [address] Glenn Gudino M.D. [id number] Protein [Mass/Vol] 6.6 g/dL Normal 6.0-8.0 [facility] Comment on above: Order Comment: [facility] has implemented the eGFR calculation approach that does not have a coefficient for race that conforms to the NKF-ASN Task Force Recommendations. Performed By: #### 4 6126 ####[facility] [address] [place], [place] [address] Glenn Gudino M.D. [id number] Sodium [Moles/Vol] 135 mmol/L Normal 135-145 [facility] Comment on above: Order Comment: [facility] has implemented the eGFR calculation approach that does not have a coefficient for race that conforms to the NKF-ASN Task Force Recommendations. Performed By: #### 4 6126 ####[facility] [address] [place] [address] 10310 Glenn Gudino M.D. [id number] Urea nitrogen [Mass/Vol] 22 mg/dL Normal 8-25 [facility] Comment on above: Order Comment: [facility] has implemented the eGFR calculation approach that does not have a coefficient for race that conforms to the NKF-ASN Task Force Recommendations. Performed By: #### 4 6126 ####[facility] [address] [place] [address] 13031 Glenn Gudino M.D. [id number] Urea nitrogen/Creatinine [Mass ratio] 23.7 mg/mg High 10.0-20.0 [facility] Comment on above: Order Comment: [facility] has implemented the eGFR calculation approach that does not have a coefficient for race that conforms to the NKF-ASN Task Force Recommendations. Performed By: #### 4 6126 ####[facility] [address] [place] [address] 10015 Glenn Gudino M.D. [id number] CONSULTon 10-18-2023 CONSULT Normal [facility] MAGNESIUM LEVELon 10-18-2023 Magnesium [Mass/Vol] 1.9 mg/dL Normal 1.6-2.4 [facility] Comment on above: Performed By: #### 4 6109 ####[facility] [address] [place] [address] 46049 Glenn Gudino M.D. [id number] PHOSPHORUSon 10-18-2023 Phosphate [Mass/Vol] 2.6 mg/dL Low 2.8-4.1 [facility] Comment on above: Performed By: #### 4 6299 ####[facility] [address] [place] [address] 52962 Glenn Gudino M.D. [id number] PT/INRon 10-18-2023 INR Coag (PPP) [Relative time] 3.4 {INR} High 0.8-1.1 [facility] Comment on above: Order Comment: Jennifer retana the induction phase of oral anticoagulation, the INR may not reflect the anticoagulation status of the patient. Therapeutic ranges for INR's are:Most clinical situations: INR 2.0-3.0Mechanical Prosthetic Valve: INR 2.5-3.5Critical: INR >5.0 Performed By: #### 4 6391 ####[facility] [address] [place] [address] 73312 Glenn Gudino M.D. [id number] PT Coag (PPP) [Time] 35.0 s High 11.8-14.3 [facility] Comment on above: Order Comment: Jennifer retana the induction phase of oral anticoagulation, the INR may not reflect the anticoagulation status of the patient. Therapeutic ranges for INR's are:Most clinical situations: INR 2.0-3.0Mechanical Prosthetic Valve: INR 2.5-3.5Critical: INR >5.0 Performed By: #### 4 6391 ####[facility] [address] [place], [place] [address] Glenn Gudino M.D. [id number] URINALYSISon 10-18-2023 BACTERIA, URINE Few Abnormal None Seen [facility] Comment on above: Order Comment: Micro scopic examination is performed on all urinalysis samples and only positive findings are reported. The test for blood on the chemical analytic portion of urinalysis may also be positive due to hemoglobinuria and myoglobinuria and if red blood cells are present they are quantified by microscopic examination. Performed By: #### 4 6625 ####[facility] [address] [place], [place] [address] Glenn Gudino M.D. [id number] BILIRUBIN, URINE Negative Normal Negative [facility] Comment on above: Order Comment: Micro scopic examination is performed on all urinalysis samples and only positive findings are reported. The test for blood on the chemical analytic portion of urinalysis may also be positive due to hemoglobinuria and myoglobinuria and if red blood cells are present they are quantified by microscopic examination. Performed By: #### 4 6625 ####[facility] [address] [place] [address] Glenn Gudino M.D. [id number] BLOOD, URINE Small Abnormal Negative [facility] Comment on above: Order Comment: Micro scopic examination is performed on all urinalysis samples and only positive findings are reported. The test for blood on the chemical analytic portion of urinalysis may also be positive due to hemoglobinuria and myoglobinuria and if red blood cells are present they are quantified by microscopic examination. Performed By: #### 4 6625 ####[facility] [address] [place] [address] Glenn Gudino M.D. [id number] Clarity (U) Cloudy Abnormal Clear [facility] Comment on above: Order Comment: Micro scopic examination is performed on all urinalysis samples and only positive findings are reported. The test for blood on the chemical analytic portion of urinalysis may also be positive due to hemoglobinuria and myoglobinuria and if red blood cells are present they are quantified by microscopic examination. Performed By: #### 4 6625 ####[facility] [address] [place] [address] Glenn Gudino M.D. [id number] Color (U) Yellow Normal Colorless, Yellow [facility] Comment on above: Order Comment: Micro scopic examination is performed on all urinalysis samples and only positive findings are reported. The test for blood on the chemical analytic portion of urinalysis may also be positive due to hemoglobinuria and myoglobinuria and if red blood cells are present they are quantified by microscopic examination. Performed By: #### 4 6625 ####[facility] [address] [place] [address] Glenn Gudino M.D. [id number] Glucose Ql (U) Negative Normal Negative [facility] Comment on above: Order Comment: Micro scopic examination is performed on all urinalysis samples and only positive findings are reported. The test for blood on the chemical analytic portion of urinalysis may also be positive due to hemoglobinuria and myoglobinuria and if red blood cells are present they are quantified by microscopic examination. Performed By: #### 4 6625 ####[facility] [address] [place] [address] Glenn Gudino M.D. [id number] Ketones Ql (U) Negative Normal Negative [facility] Comment on above: Order Comment: Micro scopic examination is performed on all urinalysis samples and only positive findings are reported. The test for blood on the chemical analytic portion of urinalysis may also be positive due to hemoglobinuria and myoglobinuria and if red blood cells are present they are quantified by microscopic examination. Performed By: #### 4 6625 ####[facility] [address] [place] [address] Glenn Gudino M.D. [id number] Leukocyte esterase Test strip Ql (U) Large Abnormal Negative [facility] Comment on above: Order Comment: Micro scopic examination is performed on all urinalysis samples and only positive findings are reported. The test for blood on the chemical analytic portion of urinalysis may also be positive due to hemoglobinuria and myoglobinuria and if red blood cells are present they are quantified by microscopic examination. Performed By: #### 4 6625 ####[facility] [address] [place] [address] Glenn Gudino M.D. [id number] NITRITE, URINE Negative Normal Negative [facility] Comment on above: Order Comment: Micro scopic examination is performed on all urinalysis samples and only positive findings are reported. The test for blood on the chemical analytic portion of urinalysis may also be positive due to hemoglobinuria and myoglobinuria and if red blood cells are present they are quantified by microscopic examination. Performed By: #### 4 6625 ####[facility] [address] [place], [place] [address] Glenn Gudino M.D. [id number] pH (U) 6.5 [pH] Normal 5.0-7.0 [facility] Comment on above: Order Comment: Micro scopic examination is performed on all urinalysis samples and only positive findings are reported. The test for blood on the chemical analytic portion of urinalysis may also be positive due to hemoglobinuria and myoglobinuria and if red blood cells are present they are quantified by microscopic examination. Performed By: #### 4 6625 ####[facility] [address] [place] [address] 52292 Glenn Gudino M.D. [id number] Protein (U) [Mass/Vol] 30 mg/dL Abnormal Negative [facility] Comment on above: Order Comment: Micro scopic [...] ammonium compounds. Performed By: #### 4 6625 ####[facility] [address] [place], [place] [address] Glenn Guidno M.D. [id number] RBC LM.HPF (Urine sed) [#/Area] 3 /[HPF] Normal 0-3 [facility] Comment on above: Order Comment: Micro scopic examination is performed on all urinalysis samples and only positive findings are reported. The test for blood on the chemical analytic portion of urinalysis may also be positive due to hemoglobinuria and myoglobinuria and if red blood cells are present they are quantified by microscopic examination. Performed By: #### 4 6625 ####[facility] [address] [place] [address] 66882 Glenn Gudino M.D. [id number] Specific gravity (U) [Rel density] 1.027 High 1.005-1.02 5 [facility] Comment on above: Order Comment: Micro scopic examination is performed on all urinalysis samples and only positive findings are reported. The test for blood on the chemical analytic portion of urinalysis may also be positive due to hemoglobinuria and myoglobinuria and if red blood cells are present they are quantified by microscopic examination. Performed By: #### 4 6625 ####[facility] [address] [place] [address] Glenn Gudino M.D. [id number] SQUAMOUS EPITHELIAL 7 /hpf High 0-4 [facility] Comment on above: Order Comment: Micro scopic examination is performed on all urinalysis samples and only positive findings are reported. The test for blood on the chemical analytic portion of urinalysis may also be positive due to hemoglobinuria and myoglobinuria and if red blood cells are present they are quantified by microscopic examination. Performed By: #### 4 6625 ####[facility] [address] [place] [address] Glenn Gudino M.D. [id number] UROBILINOGEN, URINE >=4.0 Abnormal <2.0 [facility] Comment on above: Order Comment: Micro scopic examination is performed on all urinalysis samples and only positive findings are reported. The test for blood on the chemical analytic portion of urinalysis may also be positive due to hemoglobinuria and myoglobinuria and if red blood cells are present they are quantified by microscopic examination. Performed By: #### 4 [id number] ####[facility] [address] [place], [place] [address] Glenn Gudino M.D. [id number] WBC LM.HPF (Urine sed) [#/Area] 39 /[HPF] High 0-5 [facility] Comment on above: Order Comment: Micro scopic examination is performed on all urinalysis samples and only positive findings are reported. The test for blood on the chemical analytic portion of urinalysis may also be positive due to hemoglobinuria and myoglobinuria and if red blood cells are present they are quantified by microscopic examination. Performed By: #### 4 6625 ####[facility] [address] [place] [address] Glenn Gudino M.D. [id number] URINE AEROBIC CULTUREon 09-27 URINE AEROBIC CULTURE URINE CULTURE < 10,000 CFU/mL of normal urogenital microbiota Normal [facility] Comment on above: Performed By: #### 4 4053 ####[facility] [address] [place] [address] Glenn Gudino M.D. [id number] CALCIUM, IONIZEDon CALCIUM IONIZED 4.4 mg/dL Low 4.5-5.3 [facility] Comment on above: Performed By: #### 4 5190 ####[facility] [address] [place] [address] Glenn Gudino M.D. [id number] CBCon 10-17-2023 AUTO NRBC 0.0 % Normal [facility] Comment on above: Performed By: #### 4 [id number] ####[facility] [address] [place], [place] [address] Glenn Gudino M.D. [id number] AUTO NRBC ABS COUNT 0.00 K/mcL Normal 0.00-0.00 [facility] Comment on above: Performed By: #### 4 [id number] ####[facility] [address] [place], [place] [address] Glenn Gudino M.D. [id number] Erythrocyte distribution width (RBC) [Ratio] 17.7 % High 11.6-14.8 [facility] Comment on above: Performed By: #### 4 [id number] ####[facility] [address] [place], [place] [address] Glenn Gudino M.D. [id number] Hematocrit (Bld) [Volume fraction] 28.6 % Low 36.0-46.0 [facility] Comment on above: Performed By: #### 4 [id number] ####[facility] [address] [place], [place] [address] Glenn Gudino M.D. [id number] Hemoglobin (Bld) [Mass/Vol] 8.6 g/dL Low 12.0-16.0 [facility] Comment on above: Performed By: #### 4 [id number] ####[facility] [address] [place] [address] Glenn Gudino M.D. [id number] MCH (RBC) [Entitic mass] 27.3 pg Normal 26.0-34.0 [facility] Comment on above: Performed By: #### 4 [id number] ####[facility] [address] [place] [address] Glenn Gudino M.D. [id number] MCV (RBC) [Entitic vol] 90.8 fL Normal 80.0-100.0 [facility] Comment on above: Performed By: #### 4 [id number] ####[facility] [address] [place], [place] [address] Glenn Gudino M.D. [id number] MEAN CORPUSCULAR HEMOGLOBIN CONC 30.1 g/dL Low 31.0-37.0 [facility] Comment on above: Performed By: #### 4 [id number] ####[facility] [address] [place], [place] [address] Glenn Gudino M.D. [id number] Platelet mean volume (Bld) [Entitic vol] 9.6 fL Normal 9.4-12.4 [facility] Comment on above: Performed By: #### 4 [id number] ####[facility] [address] [place], [place] [address] Glenn Gudino M.D. [id number] Platelets (Bld) [#/Vol] 390 10*3/uL Normal 150-400 [facility] Comment on above: Performed By: #### 4 [id number] ####[facility] [address] [place] [address] Glenn Gudino M.D. [id number] RBC (Bld) [#/Vol] 3.15 10*6/uL Low 4.00-5.20 [facility] Comment on above: Performed By: #### 4 [id number] ####[facility] [address] [place], [place] [address] Glenn Gudino M.D. [id number] WBC (Bld) [#/Vol] 14.44 10*3/uL High 4.50-11.00 [facility] Comment on above: Performed By: #### 4 [id number] ####[facility] [address] [place] [address] Glenn Gudino M.D. [id number] HEPATIC FUNCTION PANELon Albumin [Mass/Vol] 2.2 g/dL Low 3.2-5.2 [facility] Comment on above: Performed By: #### 4 5866 ####[facility] [address] [place], [place] [address] Glenn Gudino M.D. [id number] ALP [Catalytic activity/Vol] 105 U/L Normal 40-150 [facility] Comment on above: Performed By: #### 4 5866 ####[facility] [address] [place], [place] [address] Glenn Gudino M.D. [id number] ALT [Catalytic activity/Vol] 23 U/L Normal 0-35 U/L [facility] Comment on above: Performed By: #### 4 5866 ####[facility] [address] [place], [place] [address] Glenn Gudino M.D. [id number] AST [Catalytic activity/Vol] 52 U/L High 0-35 U/L [facility] Comment on above: Performed By: #### 4 5866 ####[facility] [address] [place], [place] [address] Glenn Gudino M.D. [id number] Bilirubin [Mass/Vol] 0.6 mg/dL Normal 0.0-1.3 [facility] Comment on above: Performed By: #### 4 5866 ####[facility] [address] [place] [address] Glenn Gudino M.D. [id number] Bilirubin.indirect [Mass/Vol] 0.2 mg/dL Normal 0.0-0.4 [facility] Comment on above: Performed By: #### 4 5866 ####[facility] [address] [place], [place] [address] Glenn Gudino M.D. [id number] Protein [Mass/Vol] 6.6 g/dL Normal 6.0-8.0 [facility] Comment on above: Performed By: #### 4 5866 ####[facility] [address] [place], [place] [address] Glenn Gudino M.D. [id number] MAGNESIUM LEVELon 10-17-2023 Magnesium [Mass/Vol] 2.0 mg/dL Normal 1.6-2.4 [facility] Comment on above: Performed By: #### 4 6109 ####[facility] [address] [place], [place] [address] Glenn Gudino M.D. [id number] PHOSPHORUSon 10-17-2023 Phosphate [Mass/Vol] 3.0 mg/dL Normal 2.8-4.1 [facility] Comment on above: Performed By: #### 4 6299 ####[facility] [address] [place], [place] [address] Glenn Gudino M.D. [id number] PT/INRon 10-17-2023 INR Coag (PPP) [Relative time] 2.9 {INR} High 0.8-1.1 [facility] Comment on above: Order Comment: Jennifer retana the induction phase of oral anticoagulation, the INR may not reflect the anticoagulation status of the patient. Therapeutic ranges for INR's are:Most clinical situations: INR 2.0-3.0Mechanical Prosthetic Valve: INR 2.5-3.5Critical: INR >5.0 Performed By: #### 4 6391 ####[facility] [address] [place] [address] Glenn Gudino M.D. [id number] PT Coag (PPP) [Time] 30.9 s High 11.8-14.3 [facility] Comment on above: Order Comment: Jennifer retana the induction phase of oral anticoagulation, the INR may not reflect the anticoagulation status of the patient. Therapeutic ranges for INR's are:Most clinical situations: INR 2.0-3.0Mechanical Prosthetic Valve: INR 2.5-3.5Critical: INR >5.0 Performed By: #### 4 6391 ####[facility] [address] [place] [address] Glenn Gudino M.D. [id number] URINALYSISon 10-17-2023 BACTERIA, URINE Many Abnormal None Seen [facility] Comment on above: Order Comment: Micro scopic examination is performed on all urinalysis samples and only positive findings are reported. The test for blood on the chemical analytic portion of urinalysis may also be positive due to hemoglobinuria and myoglobinuria and if red blood cells are present they are quantified by microscopic examination. Performed By: #### 4 6625 ####[facility] [address] [place] [address] Glenn Gudino M.D. [id number] BILIRUBIN, URINE Negative Normal Negative [facility] Comment on above: Order Comment: Micro scopic examination is performed on all urinalysis samples and only positive findings are reported. The test for blood on the chemical analytic portion of urinalysis may also be positive due to hemoglobinuria and myoglobinuria and if red blood cells are present they are quantified by microscopic examination. Performed By: #### 4 6625 ####[facility] [address] [place] [address] Glenn Gudino M.D. [id number] BLOOD, URINE Small Abnormal Negative [facility] Comment on above: Order Comment: Micro scopic examination is performed on all urinalysis samples and only positive findings are reported. The test for blood on the chemical analytic portion of urinalysis may also be positive due to hemoglobinuria and myoglobinuria and if red blood cells are present they are quantified by microscopic examination. Performed By: #### 4 6625 ####[facility] [address] [place] [address] Glenn Gudino M.D. [id number] Clarity (U) Cloudy Abnormal Clear [facility] Comment on above: Order Comment: Micro scopic examination is performed on all urinalysis samples and only positive findings are reported. The test for blood on the chemical analytic portion of urinalysis may also be positive due to hemoglobinuria and myoglobinuria and if red blood cells are present they are quantified by microscopic examination. Performed By: #### 4 6625 ####[facility] [address] [place] [address] Glenn Gudino M.D. [id number] Color (U) Yellow Normal Colorless, Yellow [facility] Comment on above: Order Comment: Micro scopic examination is performed on all urinalysis samples and only positive findings are reported. The test for blood on the chemical analytic portion of urinalysis may also be positive due to hemoglobinuria and myoglobinuria and if red blood cells are present they are quantified by microscopic examination. Performed By: #### 4 6625 ####[facility] [address] [place] [address] Glenn Gudino M.D. [id number] Glucose Ql (U) Negative Normal Negative [facility] Comment on above: Order Comment: Micro scopic examination is performed on all urinalysis samples and only positive findings are reported. The test for blood on the chemical analytic portion of urinalysis may also be positive due to hemoglobinuria and myoglobinuria and if red blood cells are present they are quantified by microscopic examination. Performed By: #### 4 6625 ####[facility] [address] [place] [address] Glenn Gudino M.D. [id number] Hyaline casts LM Ql (Urine sed) 0-2 Normal 0-2 [facility] Comment on above: Order Comment: Micro scopic examination is performed on all urinalysis samples and only positive findings are reported. The test for blood on the chemical analytic portion of urinalysis may also be positive due to hemoglobinuria and myoglobinuria and if red blood cells are present they are quantified by microscopic examination. Performed By: #### 4 6625 ####[facility] [address] [place] [address] Glenn Gudino M.D. [id number] Ketones Ql (U) Negative Normal Negative [facility] Comment on above: Order Comment: Micro scopic examination is performed on all urinalysis samples and only positive findings are reported. The test for blood on the chemical analytic portion of urinalysis may also be positive due to hemoglobinuria and myoglobinuria and if red blood cells are present they are quantified by microscopic examination. Performed By: #### 4 6625 ####[facility] [address] [place], [place] [address] Glenn Gudino M.D. [id number] Leukocyte esterase Test strip Ql (U) Large Abnormal Negative [facility] Comment on above: Order Comment: Micro scopic examination is performed on all urinalysis samples and only positive findings are reported. The test for blood on the chemical analytic portion of urinalysis may also be positive due to hemoglobinuria and myoglobinuria and if red blood cells are present they are quantified by microscopic examination. Performed By: #### 4 6625 ####[facility] [address] [place] [address] Glenn Gudino M.D. [id number] MUCUS, URINE Rare Normal None Seen, Rare [facility] Comment on above: Order Comment: Micro scopic examination is performed on all urinalysis samples and only positive findings are reported. The test for blood on the chemical analytic portion of urinalysis may also be positive due to hemoglobinuria and myoglobinuria and if red blood cells are present they are quantified by microscopic examination. Performed By: #### 4 6625 ####[facility] [address] [place] [address] Glenn Gudino M.D. [id number] NITRITE, URINE Negative Normal Negative [facility] Comment on above: Order Comment: Micro scopic examination is performed on all urinalysis samples and only positive findings are reported. The test for blood on the chemical analytic portion of urinalysis may also be positive due to hemoglobinuria and myoglobinuria and if red blood cells are present they are quantified by microscopic examination. Performed By: #### 4 6625 ####[facility] [address] [place] [address] Glenn Gudino M.D. [id number] pH (U) 6.0 [pH] Normal 5.0-7.0 [facility] Comment on above: Order Comment: Micro scopic examination is performed on all urinalysis samples and only positive findings are reported. The test for blood on the chemical analytic portion of urinalysis may also be positive due to hemoglobinuria and myoglobinuria and if red blood cells are present they are quantified by microscopic examination. Performed By: #### 4 6625 ####[facility] [address] [place] [address] Glenn Gudino M.D. [id number] Protein (U) [Mass/Vol] 30 mg/dL Abnormal Negative [facility] Comment on above: Order Comment: Micro scopic [...] ammonium compounds. Performed By: #### 4 6625 ####[facility] [address] [place], [place] [address] Glenn Gudino M.D. [id number] RBC LM.HPF (Urine sed) [#/Area] 7 /[HPF] High 0-3 [facility] Comment on above: Order Comment: Micro scopic examination is performed on all urinalysis samples and only positive findings are reported. The test for blood on the chemical analytic portion of urinalysis may also be positive due to hemoglobinuria and myoglobinuria and if red blood cells are present they are quantified by microscopic examination. Performed By: #### 4 6625 ####[facility] [address] [place] [address] Glenn Gudino M.D. [id number] Specific gravity (U) [Rel density] 1.027 High 1.005-1.02 5 [facility] Comment on above: Order Comment: Micro scopic examination is performed on all urinalysis samples and only positive findings are reported. The test for blood on the chemical analytic portion of urinalysis may also be positive due to hemoglobinuria and myoglobinuria and if red blood cells are present they are quantified by microscopic examination. Performed By: #### 4 6625 ####[facility] [address] [place] [address] Glenn Gudino M.D. [id number] SQUAMOUS EPITHELIAL 6 /hpf High 0-4 [facility] Comment on above: Order Comment: Micro scopic examination is performed on all urinalysis samples and only positive findings are reported. The test for blood on the chemical analytic portion of urinalysis may also be positive due to hemoglobinuria and myoglobinuria and if red blood cells are present they are quantified by microscopic examination. Performed By: #### 4 6625 ####[facility] [address] [place] [address] Glenn Gudino M.D. [id number] UROBILINOGEN, URINE <2.0 Normal <2.0 [facility] Comment on above: Order Comment: Micro scopic examination is performed on all urinalysis samples and only positive findings are reported. The test for blood on the chemical analytic portion of urinalysis may also be positive due to hemoglobinuria and myoglobinuria and if red blood cells are present they are quantified by microscopic examination. Performed By: #### 4 6625 ####[facility] [address] [place] [address] Glenn Gudino M.D. [id number] WBC LM.HPF (Urine sed) [#/Area] 55 /[HPF] High 0-5 [facility] Comment on above: Order Comment: Micro scopic examination is performed on all urinalysis samples and only positive findings are reported. The test for blood on the chemical analytic portion of urinalysis may also be positive due to hemoglobinuria and myoglobinuria and if red blood cells are present they are quantified by microscopic examination. Performed By: #### 4 6625 ####[facility] [address] [place] [address] Glenn Gudino M.D. [id number] BASIC METABOLIC PANELon 05-2 0-2023 Anion gap [Moles/Vol] 17 mmol/L Normal 10-20 [facility] Comment on above: Order Comment: [facility] has implemented the eGFR calculation approach that does not have a coefficient for race that conforms to the NKF-ASN Task Force Recommendations. Performed By: #### 4 6124 ####[facility] [address] [place] [address] Glenn Gudino M.D. [id number] Calcium [Mass/Vol] 7.8 mg/dL Low 8.4-10.2 [facility] Comment on above: Order Comment: [facility] has implemented the eGFR calculation approach that does not have a coefficient for race that conforms to the NKF-ASN Task Force Recommendations. Performed By: #### 4 6152 ####[facility] [address] [place] [address] Glenn Gudino M.D. [id number] Chloride [Moles/Vol] 100 mmol/L Normal 98-108 [facility] Comment on above: Order Comment: [facility] has implemented the eGFR calculation approach that does not have a coefficient for race that conforms to the NKF-ASN Task Force Recommendations. Performed By: #### 4 6124 ####[facility] [address] [place], [place] [address] Glenn Gudino M.D. [id number] Creatinine [Mass/Vol] 1.04 mg/dL Normal 0.60-1.10 [facility] Comment on above: Order Comment: [facility] has implemented the eGFR calculation approach that does not have a coefficient for race that conforms to the NKF-ASN Task Force Recommendations. Performed By: #### 4 6124 ####[facility] [address] [place], [place] [address] Glenn Gudino M.D. [id number] EGFR 61 mL/min/1.73 m2 Normal >=60 [facility] Comment on above: Order Comment: [facility] has implemented the eGFR calculation approach that does not have a coefficient for race that conforms to the NKF-ASN Task Force Recommendations. Result Comment: Joi mated GFR was calculated using the 2020 CKD-EPI creatinine equation. Performed By: #### 4 6124 ####[facility] [address] [place] [address] Glenn Gudino M.D. [id number] Glucose [Mass/Vol] 73 mg/dL Normal 65-99 [facility] Comment on above: Order Comment: [facility] has implemented the eGFR calculation approach that does not have a coefficient for race that conforms to the NKF-ASN Task Force Recommendations. Performed By: #### 4 6124 ####[facility] [address] [place], [place] [address] Glenn Gudino M.D. [id number] HCO3 (Bld) [Moles/Vol] 20 mmol/L Low 21-32 [facility] Comment on above: Order Comment: [facility] has implemented the eGFR calculation approach that does not have a coefficient for race that conforms to the NKF-ASN Task Force Recommendations. Performed By: #### 4 6124 ####[facility] [address] [place] [address] Glenn Gudino M.D. [id number] Potassium [Moles/Vol] 3.4 mmol/L Low 3.5-5.1 [facility] Comment on above: Order Comment: [facility] has implemented the eGFR calculation approach that does not have a coefficient for race that conforms to the NKF-ASN Task Force Recommendations. Performed By: #### 4 6124 ####[facility] [address] [place] [address] Glenn Gudino M.D. [id number] Sodium [Moles/Vol] 134 mmol/L Low 135-145 [facility] Comment on above: Order Comment: [facility] has implemented the eGFR calculation approach that does not have a coefficient for race that conforms to the NKF-ASN Task Force Recommendations. Performed By: #### 4 6124 ####[facility] [address] [place] [address] Glenn Gudino M.D. [id number] Urea nitrogen [Mass/Vol] 21 mg/dL Normal 8-25 [facility] Comment on above: Order Comment: [facility] has implemented the eGFR calculation approach that does not have a coefficient for race that conforms to the NKF-ASN Task Force Recommendations. Performed By: #### 4 6103 ####[facility] [address] [place] [address] Glenn Gudino M.D. [id number] Urea nitrogen/Creatinine [Mass ratio] 20.2 mg/mg High 10.0-20.0 [facility] Comment on above: Order Comment: [facility] has implemented the eGFR calculation approach that does not have a coefficient for race that conforms to the NKF-ASN Task Force Recommendations. Performed By: #### 4 6124 ####[facility] [address] [place], [place] [address] Glenn Gudino M.D. [id number] CALCIUM, IONIZEDon CALCIUM IONIZED 4.4 mg/dL Low 4.5-5.3 [facility] Comment on above: Performed By: #### 4 5190 ####[facility] [address] [place] [address] Glenn Gudino M.D. [id number] CBCon 10-16-2023 AUTO NRBC 0.0 % Normal [facility] Comment on above: Performed By: #### 4 [id number] ####[facility] [address] [place], [place] [address] Glenn Gudino M.D. [id number] AUTO NRBC ABS COUNT 0.00 K/mcL Normal 0.00-0.00 [facility] Comment on above: Performed By: #### 4 [id number] ####[facility] [address] [place], [place] [address] Glenn Gudino M.D. [id number] Erythrocyte distribution width (RBC) [Ratio] 17.5 % High 11.6-14.8 [facility] Comment on above: Performed By: #### 4 5218 ####[facility] [address] [place], [place] [address] Glenn Gudino M.D. [id number] Hematocrit (Bld) [Volume fraction] 25.7 % Low 36.0-46.0 [facility] Comment on above: Performed By: #### 4 5218 ####[facility] [address] [place], [place] [address] Glenn Gudino M.D. [id number] Hemoglobin (Bld) [Mass/Vol] 8.1 g/dL Low 12.0-16.0 [facility] Comment on above: Performed By: #### 4 5218 ####[facility] [address] [place] [address] Glenn Gudino M.D. [id number] MCH (RBC) [Entitic mass] 27.7 pg Normal 26.0-34.0 [facility] Comment on above: Performed By: #### 4 5218 ####[facility] [address] [place] [address] Glenn Gudino M.D. [id number] MCV (RBC) [Entitic vol] 88.0 fL Normal 80.0-100.0 [facility] Comment on above: Performed By: #### 4 5218 ####[facility] [address] [place] [address] Glenn Gudino M.D. [id number] MEAN CORPUSCULAR HEMOGLOBIN CONC 31.5 g/dL Normal 31.0-37.0 [facility] Comment on above: Performed By: #### 4 5218 ####[facility] [address] [place], [place] [address] Glenn Gudino M.D. [id number] Platelet mean volume (Bld) [Entitic vol] 9.2 fL Low 9.4-12.4 [facility] Comment on above: Performed By: #### 4 [id number] ####[facility] [address] [place] [address] Glenn Gudino M.D. [id number] Platelets (Bld) [#/Vol] 441 10*3/uL High 150-400 [facility] Comment on above: Performed By: #### 4 [id number] ####[facility] [address] [place] [address] Glenn Gudino M.D. [id number] RBC (Bld) [#/Vol] 2.92 10*6/uL Low 4.00-5.20 [facility] Comment on above: Performed By: #### 4 [id number] ####[facility] [address] [place] [address] Glenn Gudino M.D. [id number] WBC (Bld) [#/Vol] 13.50 10*3/uL High 4.50-11.00 [facility] Comment on above: Performed By: #### 4 5218 ####[facility] [address] [place] [address] Glenn Gudino M.D. [id number] HEPATIC FUNCTION PANELon Albumin [Mass/Vol] 2.1 g/dL Low 3.2-5.2 [facility] Comment on above: Performed By: #### 4 5866 ####[facility] [address] [place] [address] Glenn Gudino M.D. [id number] ALP [Catalytic activity/Vol] 104 U/L Normal 40-150 [facility] Comment on above: Performed By: #### 4 5866 ####[facility] [address] [place], [place] [address] Glenn Gudino M.D. [id number] ALT [Catalytic activity/Vol] 22 U/L Normal 0-35 U/L [facility] Comment on above: Performed By: #### 4 5866 ####[facility] [address] [place], [place] [address] Glenn Gudino M.D. [id number] AST [Catalytic activity/Vol] 51 U/L High 0-35 U/L [facility] Comment on above: Performed By: #### 4 5866 ####[facility] [address] [place], [place] [address] Glenn Gudino M.D. [id number] Bilirubin [Mass/Vol] 0.5 mg/dL Normal 0.0-1.3 [facility] Comment on above: Performed By: #### 4 5866 ####[facility] [address] [place] [address] Glenn Gudino M.D. [id number] Bilirubin.indirect [Mass/Vol] 0.2 mg/dL Normal 0.0-0.4 [facility] Comment on above: Performed By: #### 4 5866 ####[facility] [address] [place] [address] Glenn Gudino M.D. [id number] Protein [Mass/Vol] 6.3 g/dL Normal 6.0-8.0 [facility] Comment on above: Performed By: #### 4 [id number] ####[facility] [address] [place] [address] Glenn Gudino M.D. [id number] MAGNESIUM LEVELon 10-16-2023 Magnesium [Mass/Vol] 1.9 mg/dL Normal 1.6-2.4 [facility] Comment on above: Performed By: #### 4 6109 ####[facility] [address] [place], [place] [address] Glenn Gudino M.D. [id number] PHOSPHORUSon 10-16-2023 Phosphate [Mass/Vol] 2.4 mg/dL Low 2.8-4.1 [facility] Comment on above: Performed By: #### 4 6299 ####[facility] [address] [place], [place] [address] Glenn Gudino M.D. [id number] PT/INRon 10-16-2023 INR Coag (PPP) [Relative time] 3.1 {INR} High 0.8-1.1 [facility] Comment on above: Order Comment: Jennifer retana the induction phase of oral anticoagulation, the INR may not reflect the anticoagulation status of the patient. Therapeutic ranges for INR's are:Most clinical situations: INR 2.0-3.0Mechanical Prosthetic Valve: INR 2.5-3.5Critical: INR >5.0 Performed By: #### 4 6391 ####[facility] [address] [place], [place] [id number] Glenn Gudino M.D. [id number] PT Coag (PPP) [Time] 32.2 s High 11.8-14.3 [facility] Comment on above: Order Comment: Jennifer retana the induction phase of oral anticoagulation, the INR may not reflect the anticoagulation status of the patient. Therapeutic ranges for INR's are:Most clinical situations: INR 2.0-3.0Mechanical Prosthetic Valve: INR 2.5-3.5Critical: INR >5.0 Performed By: #### 4 6391 ####[facility] [address] [place] [address] Glenn Gudino M.D. [id number] CALCIUM, IONIZEDon CALCIUM IONIZED 4.3 mg/dL Low 4.5-5.3 [facility] Comment on above: Performed By: #### 4 5190 ####[facility] [address] [place] [address] Glenn Gudino M.D. [id number] CBCon 10-15-2023 AUTO NRBC 0.0 % Normal [facility] Comment on above: Performed By: #### 4 5218 ####[facility] [address] [place], [place] [address] Glenn Gudino M.D. [id number] AUTO NRBC ABS COUNT 0.00 K/mcL Normal 0.00-0.00 [facility] Comment on above: Performed By: #### 4 5218 ####[facility] [address] [place], [place] [address] Glenn Gudino M.D. [id number] Erythrocyte distribution width (RBC) [Ratio] 17.7 % High 11.6-14.8 [facility] Comment on above: Performed By: #### 4 5218 ####[facility] [address] [place], [place] [address] Glenn Gudino M.D. [id number] Hematocrit (Bld) [Volume fraction] 28.4 % Low 36.0-46.0 [facility] Comment on above: Performed By: #### 4 5218 ####[facility] [address] [place] [address] Glenn Gudino M.D. [id number] Hemoglobin (Bld) [Mass/Vol] 8.6 g/dL Low 12.0-16.0 [facility] Comment on above: Performed By: #### 4 5218 ####[facility] [address] [place], [place] [address] Glenn Gudino M.D. [id number] MCH (RBC) [Entitic mass] 27.5 pg Normal 26.0-34.0 [facility] Comment on above: Performed By: #### 4 5218 ####[facility] [address] [place], [place] [address] Glenn Gudino M.D. [id number] MCV (RBC) [Entitic vol] 90.7 fL Normal 80.0-100.0 [facility] Comment on above: Performed By: #### 4 5218 ####[facility] [address] [place], [place] [address] Glenn Gudino M.D. [id number] MEAN CORPUSCULAR HEMOGLOBIN CONC 30.3 g/dL Low 31.0-37.0 [facility] Comment on above: Performed By: #### 4 5218 ####[facility] [address] [place], [place] [address] Glenn Gudino M.D. [id number] Platelet mean volume (Bld) [Entitic vol] 9.8 fL Normal 9.4-12.4 [facility] Comment on above: Performed By: #### 4 5218 ####[facility] [address] [place] [address] Glenn Gudino M.D. [id number] Platelets (Bld) [#/Vol] 378 10*3/uL Normal 150-400 [facility] Comment on above: Performed By: #### 4 5218 ####[facility] [address] [place], [place] [address] Glenn Gudino M.D. [id number] RBC (Bld) [#/Vol] 3.13 10*6/uL Low 4.00-5.20 [facility] Comment on above: Performed By: #### 4 5218 ####[facility] [address] [place], [place] [address] Glenn Gudino M.D. [id number] WBC (Bld) [#/Vol] 12.92 10*3/uL High 4.50-11.00 [facility] Comment on above: Performed By: #### 4 5218 ####[facility] [address] [place] [address] Glenn Gudino M.D. [id number] HEPATIC FUNCTION PANELon Albumin [Mass/Vol] 2.2 g/dL Low 3.2-5.2 [facility] Comment on above: Performed By: #### 4 5866 ####[facility] [address] [place] [address] Glenn Gudino M.D. [id number] ALP [Catalytic activity/Vol] 100 U/L Normal 40-150 [facility] Comment on above: Performed By: #### 4 5866 ####[facility] [address] [place] [address] Glenn Gudino M.D. [id number] ALT [Catalytic activity/Vol] 28 U/L Normal 0-35 U/L [facility] Comment on above: Performed By: #### 4 5866 ####[facility] [address] [place], [place] [address] Glenn Gudino M.D. [id number] AST [Catalytic activity/Vol] 52 U/L High 0-35 U/L [facility] Comment on above: Performed By: #### 4 5866 ####[facility] [address] [place] [address] Glenn Gudino M.D. [id number] Bilirubin [Mass/Vol] 0.5 mg/dL Normal 0.0-1.3 [facility] Comment on above: Performed By: #### 4 5866 ####[facility] [address] [place], [place] [address] Glenn Gudino M.D. [id number] Bilirubin.indirect [Mass/Vol] 0.2 mg/dL Normal 0.0-0.4 [facility] Comment on above: Performed By: #### 4 5866 ####[facility] [address] [place], [place] [address] Glenn Gudino M.D. [id number] Protein [Mass/Vol] 6.1 g/dL Normal 6.0-8.0 [facility] Comment on above: Performed By: #### 4 5866 ####[facility] [address] [place], [place] [address] Glenn Gudino M.D. [id number] MAGNESIUM LEVELon 10-15-2023 Magnesium [Mass/Vol] 1.8 mg/dL Normal 1.6-2.4 [facility] Comment on above: Performed By: #### 4 6109 ####[facility] [address] [place], [place] [address] Glenn Gudino M.D. [id number] PHOSPHORUSon 10-15-2023 Phosphate [Mass/Vol] 2.8 mg/dL Normal 2.8-4.1 [facility] Comment on above: Performed By: #### 4 6299 ####[facility] [address] [place] [address] Glenn Gudino M.D. [id number] PT/INRon 10-15-2023 INR Coag (PPP) [Relative time] 2.9 {INR} High 0.8-1.1 [facility] Comment on above: Order Comment: Jennifer g the induction phase of oral anticoagulation, the INR may not reflect the anticoagulation status of the patient. Therapeutic ranges for INR's are:Most clinical situations: INR 2.0-3.0Mechanical Prosthetic Valve: INR 2.5-3.5Critical: INR >5.0 Performed By: #### 4 6391 ####[facility] [address] [place], [place] [address] Glenn Gudino M.D. [id number] PT Coag (PPP) [Time] 30.5 s High 11.8-14.3 [facility] Comment on above: Order Comment: Jennifer retana the induction phase of oral anticoagulation, the INR may not reflect the anticoagulation status of the patient. Therapeutic ranges for INR's are:Most clinical situations: INR 2.0-3.0Mechanical Prosthetic Valve: INR 2.5-3.5Critical: INR >5.0 Performed By: #### 4 6391 ####[facility] [address] [place], [place] [address] Glenn Gudino M.D. [id number] CALCIUM, IONIZEDon CALCIUM IONIZED 4.4 mg/dL Low 4.5-5.3 [facility] Comment on above: Performed By: #### 4 5190 ####[facility] [address] [place], [place] [address] Glenn Gudino M.D. [id number] CBCon 10-14-2023 AUTO NRBC 0.0 % Normal [facility] Comment on above: Performed By: #### 4 5218 ####[facility] [address] [place], [place] [address] Glenn Gudino M.D. [id number] AUTO NRBC ABS COUNT 0.00 K/mcL Normal 0.00-0.00 [facility] Comment on above: Performed By: #### 4 5218 ####[facility] [address] [place] [address] Glenn Gudino M.D. [id number] Erythrocyte distribution width (RBC) [Ratio] 17.5 % High 11.6-14.8 [facility] Comment on above: Performed By: #### 4 5218 ####[facility] [address] [place], [place] [address] Glenn Gudino M.D. [id number] Hematocrit (Bld) [Volume fraction] 26.1 % Low 36.0-46.0 [facility] Comment on above: Performed By: #### 4 5218 ####[facility] [address] [place], [place] [address] Glenn Gudino M.D. [id number] Hemoglobin (Bld) [Mass/Vol] 8.5 g/dL Low 12.0-16.0 [facility] Comment on above: Performed By: #### 4 3218 ####[facility] [address] [place], [place] [address] Glenn Gudino M.D. [id number] MCH (RBC) [Entitic mass] 28.0 pg Normal 26.0-34.0 [facility] Comment on above: Performed By: #### 4 7618 ####[facility] [address] [place] [address] Glenn Gudino M.D. [id number] MCV (RBC) [Entitic vol] 85.9 fL Normal 80.0-100.0 [facility] Comment on above: Performed By: #### 4 5218 ####[facility] [address] [place] [address] Glenn Gudino M.D. [id number] MEAN CORPUSCULAR HEMOGLOBIN CONC 32.6 g/dL Normal 31.0-37.0 [facility] Comment on above: Performed By: #### 4 5218 ####[facility] [address] [place], [place] [address] Glenn Gudino M.D. [id number] Platelet mean volume (Bld) [Entitic vol] 9.3 fL Low 9.4-12.4 [facility] Comment on above: Performed By: #### 4 5218 ####[facility] [address] [place], [place] [address] Glenn Gudino M.D. [id number] Platelets (Bld) [#/Vol] 365 10*3/uL Normal 150-400 [facility] Comment on above: Performed By: #### 4 5218 ####[facility] [address] [place] [address] Glenn Gudino M.D. [id number] RBC (Bld) [#/Vol] 3.04 10*6/uL Low 4.00-5.20 [facility] Comment on above: Performed By: #### 4 5218 ####[facility] [address] [place] [address] Glenn Gudino M.D. [id number] WBC (Bld) [#/Vol] 15.87 10*3/uL High 4.50-11.00 [facility] Comment on above: Performed By: #### 4 5218 ####[facility] [address] [place] [address] Glenn Gudino M.D. [id number] CLOSTRIDIOIDES DIFFICILE MENG Soriano 10-14-2023 CLOSTRIDIOIDES DIFFICILE TESTING Not detected Normal Not Detected [facility] Comment on above: Performed By: #### 4 8543 ####[facility] [address] [place] [address] Glenn Gudino M.D. [id number] HEPATIC FUNCTION PANELon Albumin [Mass/Vol] 2.4 g/dL Low 3.2-5.2 [facility] Comment on above: Performed By: #### 4 5866 ####[facility] [address] [place] [address] Glenn Gudino M.D. [id number] ALP [Catalytic activity/Vol] 97 U/L Normal 40-150 [facility] Comment on above: Performed By: #### 4 5866 ####[facility] [address] [place] [address] Glenn Gudino M.D. [id number] ALT [Catalytic activity/Vol] 31 U/L Normal 0-35 U/L [facility] Comment on above: Performed By: #### 4 5866 ####[facility] [address] [place], [place] [address] Glenn Gudino M.D. [id number] AST [Catalytic activity/Vol] 56 U/L High 0-35 U/L [facility] Comment on above: Performed By: #### 4 5866 ####[facility] [address] [place], [place] [address] Glenn Gudino M.D. [id number] Bilirubin [Mass/Vol] 0.6 mg/dL Normal 0.0-1.3 [facility] Comment on above: Performed By: #### 4 5888 ####[facility] [address] [place], [place] [address] Glenn Gudino M.D. [id number] Bilirubin.indirect [Mass/Vol] 0.3 mg/dL Normal 0.0-0.4 [facility] Comment on above: Performed By: #### 4 5866 ####[facility] [address] [place], [place] [address] Glenn Gudino M.D. [id number] Protein [Mass/Vol] 6.3 g/dL Normal 6.0-8.0 [facility] Comment on above: Performed By: #### 4 5866 ####[facility] [address] [place] [address] Glenn Gudino M.D. [id number] MAGNESIUM LEVELon 10-14-2023 Magnesium [Mass/Vol] 1.9 mg/dL Normal 1.6-2.4 [facility] Comment on above: Performed By: #### 4 6109 ####[facility] [address] [place] [address] Glenn Gudino M.D. [id number] PHOSPHORUSon 10-14-2023 Phosphate [Mass/Vol] 3.0 mg/dL Normal 2.8-4.1 [facility] Comment on above: Performed By: #### 4 6299 ####[facility] [address] [place] [address] Gelnn Gudino M.D. [id number] POC GLUCOSE - [facility] 024 Glucose [Mass/Vol] 105 mg/dL High 65-99 [facility] Comment on above: Performed By: #### 4 1935 ####[facility] [address] [place] [address] [id number] RMHPOC Glucose [Mass/Vol] 98 mg/dL Normal 65-99 [facility] Comment on above: Performed By: #### 4 1958 ####[facility] [address] [place] [address] [id number] RMHPOC Glucose [Mass/Vol] 82 mg/dL Normal 65-99 [facility] Comment on above: Performed By: #### 4 3353 ####[facility] [address] [place], [place] [address] [id number] RMHPOC Glucose [Mass/Vol] 93 mg/dL Normal 65-99 [facility] Comment on above: Performed By: #### 4 6932 ####[facility] [address] [place] [address] [id number] [facility] Glucose [Mass/Vol] 93 mg/dL Normal 65-99 [facility] Comment on above: Performed By: #### 4 6932 ####[facility] [address] [place] [address] [id number] [facility] PT/INRon 10-14-2023 INR Coag (PPP) [Relative time] 2.6 {INR} High 0.8-1.1 [facility] Comment on above: Order Comment: Jennifer retana the induction phase of oral anticoagulation, the INR may not reflect the anticoagulation status of the patient. Therapeutic ranges for INR's are:Most clinical situations: INR 2.0-3.0Mechanical Prosthetic Valve: INR 2.5-3.5Critical: INR >5.0 Performed By: #### 4 6391 ####[facility] [address] [place] [address] Glenn Gudino M.D. [id number] PT Coag (PPP) [Time] 28.0 s High 11.8-14.3 [facility] Comment on above: Order Comment: Jennifer retana the induction phase of oral anticoagulation, the INR may not reflect the anticoagulation status of the patient. Therapeutic ranges for INR's are:Most clinical situations: INR 2.0-3.0Mechanical Prosthetic Valve: INR 2.5-3.5Critical: INR >5.0 Performed By: #### 4 6391 ####[facility] [address] [place] [address] Glenn Gudino M.D. [id number] BASIC METABOLIC PANELon 09-26 [place]ion gap [Moles/Vol] 15 mmol/L Normal 10-20 [facility] Comment on above: Order Comment: [facility] has implemented the eGFR calculation approach that does not have a coefficient for race that conforms to the NKF-ASN Task Force Recommendations. Performed By: #### 4 6124 ####[facility] [address] [place] [address] Glenn Gudino M.D. [id number] Calcium [Mass/Vol] 7.8 mg/dL Low 8.4-10.2 [facility] Comment on above: Order Comment: [facility] has implemented the eGFR calculation approach that does not have a coefficient for race that conforms to the NKF-ASN Task Force Recommendations. Performed By: #### 4 6124 ####[facility] [address] [place] [address] Glenn Gudino M.D. [id number] Chloride [Moles/Vol] 98 mmol/L Normal 98-108 [facility] Comment on above: Order Comment: [facility] has implemented the eGFR calculation approach that does not have a coefficient for race that conforms to the NKF-ASN Task Force Recommendations. Performed By: #### 4 6124 ####[facility] [address] [place] [address] Glenn Gudino M.D. [id number] Creatinine [Mass/Vol] 1.14 mg/dL Normal 0.60-1.10 [facility] Comment on above: Order Comment: [facility] has implemented the eGFR calculation approach that does not have a coefficient for race that conforms to the NKF-ASN Task Force Recommendations. Performed By: #### 4 6124 ####[facility] [address] [place] [address] Glenn Gudino M.D. [id number] EGFR 55 mL/min/1.73 m2 Low >=60 [facility] Comment on above: Order Comment: [facility] has implemented the eGFR calculation approach that does not have a coefficient for race that conforms to the NKF-ASN Task Force Recommendations. Result Comment: Joi mated GFR was calculated using the 2020 CKD-EPI creatinine equation. Performed By: #### 4 6124 ####[facility] [address] [place] [address] Glenn Gudino M.D. [id number] Glucose [Mass/Vol] 83 mg/dL Normal 65-99 [facility] Comment on above: Order Comment: [facility] has implemented the eGFR calculation approach that does not have a coefficient for race that conforms to the NKF-ASN Task Force Recommendations. Performed By: #### 4 6124 ####[facility] [address] [place] [address] Glenn Gudino M.D. [id number] HCO3 (Bld) [Moles/Vol] 25 mmol/L Normal 21-32 [facility] Comment on above: Order Comment: [facility] has implemented the eGFR calculation approach that does not have a coefficient for race that conforms to the NKF-ASN Task Force Recommendations. Performed By: #### 4 6124 ####[facility] [address] [place] [address] Glenn Gudino M.D. [id number] Potassium [Moles/Vol] 3.9 mmol/L Normal 3.5-5.1 [facility] Comment on above: Order Comment: [facility] has implemented the eGFR calculation approach that does not have a coefficient for race that conforms to the NKF-ASN Task Force Recommendations. Performed By: #### 4 6124 ####[facility] [address] [place] [address] Glenn Gudino M.D. [id number] Sodium [Moles/Vol] 134 mmol/L Low 135-145 [facility] Comment on above: Order Comment: [facility] has implemented the eGFR calculation approach that does not have a coefficient for race that conforms to the NKF-ASN Task Force Recommendations. Performed By: #### 4 6143 ####[facility] [address] [id number] Glenn Gudino M.D. [id number] Urea nitrogen [Mass/Vol] 28 mg/dL High 8-25 [facility] Comment on above: Order Comment: [facility] has implemented the eGFR calculation approach that does not have a coefficient for race that conforms to the NKF-ASN Task Force Recommendations. Performed By: #### 4 6124 ####[facility] [address] [place] [address] Glenn Gudino M.D. [id number] Urea nitrogen/Creatinine [Mass ratio] 24.6 mg/mg High 10.0-20.0 [facility] Comment on above: Order Comment: [facility] has implemented the eGFR calculation approach that does not have a coefficient for race that conforms to the NKF-ASN Task Force Recommendations. Performed By: #### 4 6124 ####[facility] [address] [place], [place] [address] Glenn Gudino M.D. [id number] CALCIUM, IONIZEDon CALCIUM IONIZED 4.3 mg/dL Low 4.5-5.3 [facility] Comment on above: Performed By: #### 4 5190 ####[facility] [address] [place], [place] [address] Glenn Gudino M.D. [id number] CBCon 10-13-2023 AUTO NRBC 0.0 % Normal [facility] Comment on above: Performed By: #### 4 5218 ####[facility] [address] [place] [address] Glenn Gudino M.D. [id number] AUTO NRBC ABS COUNT 0.00 K/mcL Normal 0.00-0.00 [facility] Comment on above: Performed By: #### 4 5218 ####[facility] [address] [place], [place] [address] Glenn Gudino M.D. [id number] Erythrocyte distribution width (RBC) [Ratio] 17.2 % High 11.6-14.8 [facility] Comment on above: Performed By: #### 4 5218 ####[facility] [address] [place] [address] Glenn Gudino M.D. [id number] Hematocrit (Bld) [Volume fraction] 26.4 % Low 36.0-46.0 [facility] Comment on above: Performed By: #### 4 5218 ####[facility] [address] [place] [address] Glenn Gudino M.D. [id number] Hemoglobin (Bld) [Mass/Vol] 8.7 g/dL Low 12.0-16.0 [facility] Comment on above: Performed By: #### 4 5218 ####[facility] [address] [place] [address] Glenn Gudino M.D. [id number] MCH (RBC) [Entitic mass] 27.9 pg Normal 26.0-34.0 [facility] Comment on above: Performed By: #### 4 5218 ####[facility] [address] [place], [place] [address] Glenn Gudino M.D. [id number] MCV (RBC) [Entitic vol] 84.6 fL Normal 80.0-100.0 [facility] Comment on above: Performed By: #### 4 5218 ####[facility] [address] [place] [address] Glenn Gudino M.D. [id number] MEAN CORPUSCULAR HEMOGLOBIN CONC 33.0 g/dL Normal 31.0-37.0 [facility] Comment on above: Performed By: #### 4 5236 ####[facility] [address] [place] [address] Glenn Gudino M.D. [id number] Platelet mean volume (Bld) [Entitic vol] 9.6 fL Normal 9.4-12.4 [facility] Comment on above: Performed By: #### 4 5218 ####[facility] [address] [place], [place] [address] Glenn Gudino M.D. [id number] Platelets (Bld) [#/Vol] 362 10*3/uL Normal 150-400 [facility] Comment on above: Performed By: #### 4 5218 ####[facility] [address] [place] [address] Glenn Gudino M.D. [id number] RBC (Bld) [#/Vol] 3.12 10*6/uL Low 4.00-5.20 [facility] Comment on above: Performed By: #### 4 5218 ####[facility] [address] [place], [place] [address] Glenn Gudino M.D. [id number] WBC (Bld) [#/Vol] 15.99 10*3/uL High 4.50-11.00 [facility] Comment on above: Performed By: #### 4 5218 ####[facility] [address] [place] [address] Glenn Gudino M.D. [id number] CORTISOL, Víctor 10-13-2023 CORTISOL - AM 24.1 mcg/dL Normal 5.0-25.0 [facility] Comment on above: Order Comment: Needs to be drawn at 8 am Performed By: #### 4 6853 ####[facility] [address] [place], [place] [address] Glenn Gudino M.D. [id number] HEPATIC FUNCTION PANELon Albumin [Mass/Vol] 2.4 g/dL Low 3.2-5.2 [facility] Comment on above: Performed By: #### 4 5866 ####[facility] [address] [place] [address] Glenn Gudino M.D. [id number] ALP [Catalytic activity/Vol] 85 U/L Normal 40-150 [facility] Comment on above: Performed By: #### 4 5866 ####[facility] [address] [place] [address] Glenn Gudino M.D. [id number] ALT [Catalytic activity/Vol] 27 U/L Normal 0-35 U/L [facility] Comment on above: Performed By: #### 4 5866 ####[facility] [address] [place] [address] Glenn Gudino M.D. [id number] AST [Catalytic activity/Vol] 49 U/L High 0-35 U/L [facility] Comment on above: Performed By: #### 4 5866 ####[facility] [address] [place] [address] Glenn Gudino M.D. [id number] Bilirubin [Mass/Vol] 0.5 mg/dL Normal 0.0-1.3 [facility] Comment on above: Performed By: #### 4 5866 ####[facility] [address] [place], [place] [address] Glenn Gudino M.D. [id number] Bilirubin.indirect [Mass/Vol] 0.2 mg/dL Normal 0.0-0.4 [facility] Comment on above: Performed By: #### 4 5866 ####[facility] [address] [place], [place] [address] Glenn Gudino M.D. [id number] Protein [Mass/Vol] 6.4 g/dL Normal 6.0-8.0 [facility] Comment on above: Performed By: #### 4 5843 ####[facility] [address] [place], [place] [address] Glenn Gudino M.D. [id number] MAGNESIUM LEVELon 10-13-2023 Magnesium [Mass/Vol] 1.8 mg/dL Normal 1.6-2.4 [facility] Comment on above: Performed By: #### 4 6109 ####[facility] [address] [place] [address] Glenn Gudino M.D. [id number] PHOSPHORUSon 10-13-2023 Phosphate [Mass/Vol] 2.3 mg/dL Low 2.8-4.1 [facility] Comment on above: Performed By: #### 4 6299 ####[facility] [address] [place] [address] Glenn Gudino M.D. [id number] POC GLUCOSE - [facility] 024 Glucose [Mass/Vol] 92 mg/dL Normal 65-99 [facility] Comment on above: Performed By: #### 4 6932 ####[facility] [address] [place] [address] [id number] [facility] Glucose [Mass/Vol] 98 mg/dL Normal 65-99 [facility] Comment on above: Performed By: #### 4 6904 ####[facility] [address] [place] [address] [id number] [facility] Glucose [Mass/Vol] 105 mg/dL High 65-99 [facility] Comment on above: Performed By: #### 4 0543 ####[facility] [address] [place] [address] [id number] [facility] Glucose [Mass/Vol] 107 mg/dL High 65-99 [facility] Comment on above: Performed By: #### 4 8191 ####[facility] [address] [place] [address] [id number] [facility] Glucose [Mass/Vol] 95 mg/dL Normal 65-99 [facility] Comment on above: Performed By: #### 4 5901 ####[facility] [address] [place] [address] [id number] RMOC Glucose [Mass/Vol] 99 mg/dL Normal 65-99 [facility] Comment on above: Performed By: #### 4 6932 ####PENDING SALE TO [facility] [address] [place] [address] [id number] RMHPOC PT/INRon 10-13-2023 INR Coag (PPP) [Relative time] 1.9 {INR} High 0.8-1.1 [facility] Comment on above: Order Comment: Jennifer g the induction phase of oral anticoagulation, the INR may not reflect the anticoagulation status of the patient. Therapeutic ranges for INR's are:Most clinical situations: INR 2.0-3.0Mechanical Prosthetic Valve: INR 2.5-3.5Critical: INR >5.0 Performed By: #### 4 6391 ####[facility] [address] [place] [address] Glenn Gudino M.D. [id number] PT Coag (PPP) [Time] 22.3 s High 11.8-14.3 [facility] Comment on above: Order Comment: Jennifer retana the induction phase of oral anticoagulation, the INR may not reflect the anticoagulation status of the patient. Therapeutic ranges for INR's are:Most clinical situations: INR 2.0-3.0Mechanical Prosthetic Valve: INR 2.5-3.5Critical: INR >5.0 Result Comment: Resu lts checked. Performed By: #### 4 6391 ####[facility] [address] [place] [address] Glenn Gudino M.D. [id number] BASIC METABOLIC PANELon 09-26 Anion gap [Moles/Vol] 18 mmol/L Normal 10-20 [facility] Comment on above: Order Comment: [facility] has implemented the eGFR calculation approach that does not have a coefficient for race that conforms to the NKF-ASN Task Force Recommendations. Performed By: #### 4 6124 ####[facility] [address] [place] [address] Glenn Gudino M.D. [id number] Calcium [Mass/Vol] 7.7 mg/dL Low 8.4-10.2 [facility] Comment on above: Order Comment: [facility] has implemented the eGFR calculation approach that does not have a coefficient for race that conforms to the NKF-ASN Task Force Recommendations. Performed By: #### 4 6124 ####[facility] [address] [place], [place] [id number] Glenn Gudino M.D. [id number] Chloride [Moles/Vol] 98 mmol/L Normal 98-108 [facility] Comment on above: Order Comment: [facility] has implemented the eGFR calculation approach that does not have a coefficient for race that conforms to the NKF-ASN Task Force Recommendations. Performed By: #### 4 6124 ####[facility] [address] [place], [place] [address] Glenn Gudino M.D. [id number] Creatinine [Mass/Vol] 1.35 mg/dL High 0.60-1.10 [facility] Comment on above: Order Comment: [facility] has implemented the eGFR calculation approach that does not have a coefficient for race that conforms to the NKF-ASN Task Force Recommendations. Performed By: #### 4 6124 ####[facility] [address] [place] [address] Glenn Gudino M.D. [id number] EGFR 45 mL/min/1.73 m2 Low >=60 [facility] Comment on above: Order Comment: [facility] has implemented the eGFR calculation approach that does not have a coefficient for race that conforms to the NKF-ASN Task Force Recommendations. Result Comment: Joi mated GFR was calculated using the 2020 CKD-EPI creatinine equation. Performed By: #### 4 6124 ####[facility] [address] [place], [place] [address] Glenn Gudino M.D. [id number] Glucose [Mass/Vol] 202 mg/dL High 65-99 [facility] Comment on above: Order Comment: [facility] has implemented the eGFR calculation approach that does not have a coefficient for race that conforms to the NKF-ASN Task Force Recommendations. Performed By: #### 4 6124 ####[facility] [address] [place] [address] Glenn Gudino M.D. [id number] HCO3 (Bld) [Moles/Vol] 21 mmol/L Normal 21-32 [facility] Comment on above: Order Comment: [facility] has implemented the eGFR calculation approach that does not have a coefficient for race that conforms to the NKF-ASN Task Force Recommendations. Performed By: #### 4 6124 ####[facility] [address] [place] [address] Glenn Gudino M.D. [id number] Potassium [Moles/Vol] 3.9 mmol/L Normal 3.5-5.1 [facility] Comment on above: Order Comment: [facility] has implemented the eGFR calculation approach that does not have a coefficient for race that conforms to the NKF-ASN Task Force Recommendations. Performed By: #### 4 6124 ####[facility] [address] [place] [address]678 Glenn Gudino M.D. [id number] Sodium [Moles/Vol] 133 mmol/L Low 135-145 [facility] Comment on above: Order Comment: [facility] has implemented the eGFR calculation approach that does not have a coefficient for race that conforms to the NKF-ASN Task Force Recommendations. Performed By: #### 4 6102 ####[facility] [address] [place] [address] Glenn Gudino M.D. [id number] Urea nitrogen [Mass/Vol] 33 mg/dL High 8-25 [facility] Comment on above: Order Comment: [facility] has implemented the eGFR calculation approach that does not have a coefficient for race that conforms to the NKF-ASN Task Force Recommendations. Performed By: #### 4 6124 ####[facility] [address] [place] [address] 84774 Glenn Gudino M.D. [id number] Urea nitrogen/Creatinine [Mass ratio] 24.4 mg/mg High 10.0-20.0 [facility] Comment on above: Order Comment: [facility] has implemented the eGFR calculation approach that does not have a coefficient for race that conforms to the NKF-ASN Task Force Recommendations. Performed By: #### 4 6124 ####[facility] [address] [place], [place] [address] Glenn Gudino M.D. [id number] Anion gap [Moles/Vol] 14 mmol/L Normal 10-20 [facility] Comment on above: Order Comment: [facility] has implemented the eGFR calculation approach that does not have a coefficient for race that conforms to the NKF-ASN Task Force Recommendations. Performed By: #### 4 6124 ####[facility] [address] [place] [address] Glenn Gudino M.D. [id number] Calcium [Mass/Vol] 8.0 mg/dL Low 8.4-10.2 [facility] Comment on above: Order Comment: [facility] has implemented the eGFR calculation approach that does not have a coefficient for race that conforms to the NKF-ASN Task Force Recommendations. Performed By: #### 4 6124 ####[facility] [address] [place] [address] Glenn Gudino M.D. [id number] Chloride [Moles/Vol] 100 mmol/L Normal 98-108 [facility] Comment on above: Order Comment: [facility] has implemented the eGFR calculation approach that does not have a coefficient for race that conforms to the NKF-ASN Task Force Recommendations. Performed By: #### 4 6124 ####[facility] [address] [place] [address] 90661 Glenn Gudino M.D. [id number] Creatinine [Mass/Vol] 1.24 mg/dL High 0.60-1.10 [facility] Comment on above: Order Comment: [facility] has implemented the eGFR calculation approach that does not have a coefficient for race that conforms to the NKF-ASN Task Force Recommendations. Performed By: #### 4 6124 ####[facility] [address] [place] [address] Glenn Gudino M.D. [id number] EGFR 50 mL/min/1.73 m2 Low >=60 [facility] Comment on above: Order Comment: [facility] has implemented the eGFR calculation approach that does not have a coefficient for race that conforms to the NKF-ASN Task Force Recommendations. Result Comment: Joi mated GFR was calculated using the 2020 CKD-EPI creatinine equation. Performed By: #### 4 6124 ####[facility] [address] [place] [address] 60[address] Glenn Gudino M.D. [id number] Glucose [Mass/Vol] 84 mg/dL Normal 65-99 [facility] Comment on above: Order Comment: [facility] has implemented the eGFR calculation approach that does not have a coefficient for race that conforms to the NKF-ASN Task Force Recommendations. Performed By: #### 4 6124 ####[facility] [address] [place] [address] Glenn Gudino M.D. [id number] HCO3 (Bld) [Moles/Vol] 25 mmol/L Normal 21-32 [facility] Comment on above: Order Comment: [facility] has implemented the eGFR calculation approach that does not have a coefficient for race that conforms to the NKF-ASN Task Force Recommendations. Performed By: #### 4 6124 ####[facility] [address] [place] [address] 611[address] Glenn Gudino M.D. [id number] Potassium [Moles/Vol] 4.1 mmol/L Normal 3.5-5.1 [facility] Comment on above: Order Comment: [facility] has implemented the eGFR calculation approach that does not have a coefficient for race that conforms to the NKF-ASN Task Force Recommendations. Performed By: #### 4 6124 ####[facility] [address] [place] [address] Glenn Gudino M.D. [id number] Sodium [Moles/Vol] 135 mmol/L Normal 135-145 [facility] Comment on above: Order Comment: [facility] has implemented the eGFR calculation approach that does not have a coefficient for race that conforms to the NKF-ASN Task Force Recommendations. Performed By: #### 4 6124 ####[facility] [address] [place], [place] [address] Glenn Gudino M.D. [id number] Urea nitrogen [Mass/Vol] 33 mg/dL High 8-25 [facility] Comment on above: Order Comment: [facility] has implemented the eGFR calculation approach that does not have a coefficient for race that conforms to the NKF-ASN Task Force Recommendations. Performed By: #### 4 6124 ####[facility] [address] [place] [address] 52496 Glenn Gudino M.D. [id number] Urea nitrogen/Creatinine [Mass ratio] 26.6 mg/mg High 10.0-20.0 [facility] Comment on above: Order Comment: [facility] has implemented the eGFR calculation approach that does not have a coefficient for race that conforms to the NKF-ASN Task Force Recommendations. Performed By: #### 4 6124 ####[facility] [address] [place], [place] [address] Glenn Gudino M.D. [id number] CALCIUM, IONIZEDon CALCIUM IONIZED 4.5 mg/dL Normal 4.5-5.3 [facility] Comment on above: Performed By: #### 4 5190 ####[facility] [address] [place] [address] Glenn Gudino M.D. [id number] CBCon 10-12-2023 AUTO NRBC 0.0 % Normal [facility] Comment on above: Performed By: #### 4 5218 ####[facility] [address] [place] [address] Glenn Gudino M.D. [id number] AUTO NRBC ABS COUNT 0.00 K/mcL Normal 0.00-0.00 [facility] Comment on above: Performed By: #### 4 5218 ####[facility] [address] [place] [address] Glenn Gudino M.D. [id number] Erythrocyte distribution width (RBC) [Ratio] 17.1 % High 11.6-14.8 [facility] Comment on above: Performed By: #### 4 5218 ####[facility] [address] [place] [address] Glenn Gudino M.D. [id number] Hematocrit (Bld) [Volume fraction] 25.6 % Low 36.0-46.0 [facility] Comment on above: Performed By: #### 4 5218 ####[facility] [address] [place], [place] [address] Glenn Gudino M.D. [id number] Hemoglobin (Bld) [Mass/Vol] 8.2 g/dL Low 12.0-16.0 [facility] Comment on above: Performed By: #### 4 5218 ####[facility] [address] [place], [place] [address] Glenn Gudino M.D. [id number] MCH (RBC) [Entitic mass] 27.2 pg Normal 26.0-34.0 [facility] Comment on above: Performed By: #### 4 5218 ####[facility] [address] [place], [place] [address] Glenn Gudino M.D. [id number] MCV (RBC) [Entitic vol] 84.8 fL Normal 80.0-100.0 [facility] Comment on above: Performed By: #### 4 5218 ####[facility] [address] [place] [address] Glenn Gudino M.D. [id number] MEAN CORPUSCULAR HEMOGLOBIN CONC 32.0 g/dL Normal 31.0-37.0 [facility] Comment on above: Performed By: #### 4 5218 ####[facility] [address] [place] [address] Glenn Gudino M.D. [id number] Platelet mean volume (Bld) [Entitic vol] 9.2 fL Low 9.4-12.4 [facility] Comment on above: Performed By: #### 4 5218 ####[facility] [address] [place], [place] [address] Glenn Gudino M.D. [id number] Platelets (Bld) [#/Vol] 286 10*3/uL Normal 150-400 [facility] Comment on above: Performed By: #### 4 5218 ####[facility] [address] [place], [place] [address] Glenn Gudino M.D. [id number] RBC (Bld) [#/Vol] 3.02 10*6/uL Low 4.00-5.20 [facility] Comment on above: Performed By: #### 4 5218 ####[facility] [address] [place], [place] [address] Glenn Gudino M.D. [id number] WBC (Bld) [#/Vol] 14.32 10*3/uL High 4.50-11.00 [facility] Comment on above: Performed By: #### 4 5218 ####[facility] [address] [place], [place] [address] Glenn Gudino M.D. [id number] CONSULTon 10-12-2023 CONSULT Normal [facility] CONSULT Normal [facility] HEMOGLOBIN A1Con 10-12-2023 Glucose [Mass/Vol] 111 mg/dL Normal 74-114 [facility] Comment on above: Order Comment: Irina l: 4.2% - 5.6%Increased risk for diabetes: 5.7% - 6.4%Diabetes: >= 6.5%Pediatrics: No established reference rangeEstimated average glucose: 74-114 mg/dL Performed By: #### 4 8202 ####[facility] [address] [place], [place] [address] Glenn Gudino M.D. [id number] HbA1c (Bld) [Mass fraction] 5.5 % Normal 4.2-5.6 [facility] Comment on above: Order Comment: Irina l: 4.2% - 5.6%Increased risk for diabetes: 5.7% - 6.4%Diabetes: >= 6.5%Pediatrics: No established reference rangeEstimated average glucose: 74-114 mg/dL Performed By: #### 4 8202 ####[facility] [address] [place] [address] 58751 Glenn Gudino M.D. [id number] HEPATIC FUNCTION PANELon Albumin [Mass/Vol] 2.5 g/dL Low 3.2-5.2 [facility] Comment on above: Performed By: #### 4 5866 ####[facility] [address] [place] [address] 18791 Glenn Gudino M.D. [id number] ALP [Catalytic activity/Vol] 75 U/L Normal 40-150 [facility] Comment on above: Performed By: #### 4 5866 ####[facility] [address] [place], [place] [address] Glenn Gudino M.D. [id number] ALT [Catalytic activity/Vol] 27 U/L Normal 0-35 U/L [facility] Comment on above: Performed By: #### 4 5866 ####[facility] [address] [place] [address] Glenn Gudino M.D. [id number] AST [Catalytic activity/Vol] 45 U/L High 0-35 U/L [facility] Comment on above: Performed By: #### 4 5866 ####[facility] [address] [place] [address] Glenn Gudino M.D. [id number] Bilirubin [Mass/Vol] 0.5 mg/dL Normal 0.0-1.3 [facility] Comment on above: Performed By: #### 4 5866 ####[facility] [address] [place], [place] [address] Glenn Gudino M.D. [id number] Bilirubin.indirect [Mass/Vol] 0.2 mg/dL Normal 0.0-0.4 [facility] Comment on above: Performed By: #### 4 5866 ####[facility] [address] [place], [place] [address] Glenn Gudino M.D. [id number] Protein [Mass/Vol] 6.2 g/dL Normal 6.0-8.0 [facility] Comment on above: Performed By: #### 4 5866 ####[facility] [address] [place], [place] [address] Glenn Gudino M.D. [id number] MAGNESIUM LEVELon 10-12-2023 Magnesium [Mass/Vol] 1.9 mg/dL Normal 1.6-2.4 [facility] Comment on above: Performed By: #### 4 6109 ####[facility] [address] [place] [address] Glenn Gudino M.D. [id number] PHOSPHORUSon 10-12-2023 Phosphate [Mass/Vol] 2.0 mg/dL Low 2.8-4.1 [facility] Comment on above: Performed By: #### 4 6299 ####[facility] [address] [place] [address] Glenn Gudino M.D. [id number] Phosphate [Mass/Vol] 2.1 mg/dL Low 2.8-4.1 [facility] Comment on above: Performed By: #### 4 6299 ####[facility] [address] [place] [address] Glenn Gudino M.D. [id number] POC GLUCOSE - [facility] 024 Glucose [Mass/Vol] 81 mg/dL Normal 65-99 [facility] Comment on above: Performed By: #### 4 8491 ####[facility] [address] [place] [address] [id number] RMHPOC Glucose [Mass/Vol] 43 mg/dL Low 65-99 [facility] Comment on above: Performed By: #### 4 0636 ####[facility] [address] [place] [address] [id number] RMHPOC Glucose [Mass/Vol] 46 mg/dL Low 65-99 [facility] Comment on above: Performed By: #### 4 1008 ####[facility] [address] [place] [address] [id number] RMHPOC Glucose [Mass/Vol] 34 mg/dL Off scale low 65-99 [facility] Comment on above: Order Comment: Criti cherrie result acted upon time of test. Test performed at bedside. Performed By: #### 4 5003 ####[facility] [address] [place] [address] [id number] RMHPOC Glucose [Mass/Vol] 32 mg/dL Off scale low 65-99 [facility] Comment on above: Order Comment: Criti cherrie result acted upon time of test. Test performed at bedside. Performed By: #### 4 6906 ####[facility] [address] [place] [address] [id number] RMHPOC Glucose [Mass/Vol] 25 mg/dL Off scale low 65-99 [facility] Comment on above: Order Comment: Criti cherrie result acted upon time of test. Test performed at bedside. Performed By: #### 4 6977 ####[facility] [address] [place] [address] [id number] RMHPOC Glucose [Mass/Vol] 34 mg/dL Off scale low 65-99 [facility] Comment on above: Order Comment: Criti cherrie result acted upon time of test. Test performed at bedside. Performed By: #### 4 6254 ####[facility] [address] [place] [address] [id number] RMHPOC Glucose [Mass/Vol] 29 mg/dL Off scale low 65-99 [facility] Comment on above: Order Comment: Criti cherrie result acted upon time of test. Test performed at bedside. Performed By: #### 4 4460 ####[facility] [address] [place] [address] [id number] RMHPOC Glucose [Mass/Vol] 105 mg/dL High 65-99 [facility] Comment on above: Performed By: #### 4 0233 ####[facility] [address] [place] [address] [id number] RMHPOC Glucose [Mass/Vol] 105 mg/dL High 65-99 [facility] Comment on above: Performed By: #### 4 1169 ####[facility] [address] [place] [address] [id number] RMHPOC Glucose [Mass/Vol] 99 mg/dL Normal 65-99 [facility] Comment on above: Performed By: #### 4 8523 ####[facility] [address] [place] [address] [id number] RMHPOC Glucose [Mass/Vol] 97 mg/dL Normal 65-99 [facility] Comment on above: Performed By: #### 4 6932 ####[facility] [address] [place] [address] [id number] RMHPOC Glucose [Mass/Vol] 101 mg/dL High 65-99 [facility] Comment on above: Performed By: #### 4 6932 ####[facility] [address] [place] [address] [id number] RMHPOC Glucose [Mass/Vol] 131 mg/dL High 65-99 [facility] Comment on above: Performed By: #### 4 6932 ####[facility] [address] [place] [address] [id number] RM[facility] PT/INRon 10-12-2023 INR Coag (PPP) [Relative time] 1.4 {INR} High 0.8-1.1 [facility] Comment on above: Order Comment: Jennifer retana the induction phase of oral anticoagulation, the INR may not reflect the anticoagulation status of the patient. Therapeutic ranges for INR's are:Most clinical situations: INR 2.0-3.0Mechanical Prosthetic Valve: INR 2.5-3.5Critical: INR >5.0 Performed By: #### 4 6391 ####[facility] [address] [place] [address] Glenn Gudino M.D. [id number] PT Coag (PPP) [Time] 16.9 s High 11.8-14.3 [facility] Comment on above: Order Comment: Jennifer retana the induction phase of oral anticoagulation, the INR may not reflect the anticoagulation status of the patient. Therapeutic ranges for INR's are:Most clinical situations: INR 2.0-3.0Mechanical Prosthetic Valve: INR 2.5-3.5Critical: INR >5.0 Performed By: #### 4 6391 ####[facility] [address] [place] [address]57[address] Glenn Gudino M.D. [id number] BASIC METABOLIC PANELon 05 Anion gap [Moles/Vol] 17 mmol/L Normal 10-20 [facility] Comment on above: Order Comment: [facility] has implemented the eGFR calculation approach that does not have a coefficient for race that conforms to the NKF-ASN Task Force Recommendations. Performed By: #### 4 6124 ####[facility] [address] [place] [address] 14911 Glenn Gudino M.D. [id number] Calcium [Mass/Vol] 7.8 mg/dL Low 8.4-10.2 [facility] Comment on above: Order Comment: [facility] has implemented the eGFR calculation approach that does not have a coefficient for race that conforms to the NKF-ASN Task Force Recommendations. Performed By: #### 4 6124 ####[facility] [address] [place] [address]27 Glenn Gudino M.D. [id number] Chloride [Moles/Vol] 102 mmol/L Normal 98-108 [facility] Comment on above: Order Comment: [facility] has implemented the eGFR calculation approach that does not have a coefficient for race that conforms to the NKF-ASN Task Force Recommendations. Performed By: #### 4 6124 ####[facility] [address] [place] [address]45 Glenn Gudino M.D. [id number] Creatinine [Mass/Vol] 1.37 mg/dL High 0.60-1.10 [facility] Comment on above: Order Comment: [facility] has implemented the eGFR calculation approach that does not have a coefficient for race that conforms to the NKF-ASN Task Force Recommendations. Performed By: #### 4 6124 ####[facility] [address] [place] [address] 25843 Glnen Gudino M.D. [id number] EGFR 44 mL/min/1.73 m2 Low >=60 [facility] Comment on above: Order Comment: [facility] has implemented the eGFR calculation approach that does not have a coefficient for race that conforms to the NKF-ASN Task Force Recommendations. Result Comment: Joi mated GFR was calculated using the 2020 CKD-EPI creatinine equation. Performed By: #### 4 6124 ####[facility] [address] [place] [address] 44476 Glenn Gudino M.D. [id number] Glucose [Mass/Vol] 116 mg/dL High 65-99 [facility] Comment on above: Order Comment: [facility] has implemented the eGFR calculation approach that does not have a coefficient for race that conforms to the NKF-ASN Task Force Recommendations. Performed By: #### 4 6124 ####[facility] [address] [place] [address]8634 Glenn Gudino M.D. [id number] HCO3 (Bld) [Moles/Vol] 22 mmol/L Normal 21-32 [facility] Comment on above: Order Comment: [facility] has implemented the eGFR calculation approach that does not have a coefficient for race that conforms to the NKF-ASN Task Force Recommendations. Performed By: #### 4 6124 ####[facility] [address] [place] [address] Glenn Gudino M.D. [id number] Potassium [Moles/Vol] 3.9 mmol/L Normal 3.5-5.1 [facility] Comment on above: Order Comment: [facility] has implemented the eGFR calculation approach that does not have a coefficient for race that conforms to the NKF-ASN Task Force Recommendations. Performed By: #### 4 6124 ####[facility] [address] [place] [address]30 Glenn Gudino M.D. [id number] Sodium [Moles/Vol] 137 mmol/L Normal 135-145 [facility] Comment on above: Order Comment: [facility] has implemented the eGFR calculation approach that does not have a coefficient for race that conforms to the NKF-ASN Task Force Recommendations. Performed By: #### 4 6124 ####[facility] [address] [place], [place] [id number] Glenn Gudino M.D. [id number] Urea nitrogen [Mass/Vol] 39 mg/dL High 8-25 [facility] Comment on above: Order Comment: [facility] has implemented the eGFR calculation approach that does not have a coefficient for race that conforms to the NKF-ASN Task Force Recommendations. Performed By: #### 4 6124 ####[facility] [address] [place], [place] [id number] Glenn Gudino M.D. [id number] Urea nitrogen/Creatinine [Mass ratio] 28.5 mg/mg High 10.0-20.0 [facility] Comment on above: Order Comment: [facility] has implemented the eGFR calculation approach that does not have a coefficient for race that conforms to the NKF-ASN Task Force Recommendations. Performed By: #### 4 6124 ####[facility] [address] [place], [place] [address] Glenn Gudino M.D. [id number] CALCIUM, IONIZEDon CALCIUM IONIZED 4.5 mg/dL Normal 4.5-5.3 [facility] Comment on above: Performed By: #### 4 5190 ####[facility] [address] [place] [address] Glenn Gudino M.D. [id number] CBCon 10-11-2023 AUTO NRBC 0.0 % Normal [facility] Comment on above: Performed By: #### 4 5218 ####[facility] [address] [place], [place] [address] Glenn Gudino M.D. [id number] AUTO NRBC ABS COUNT 0.00 K/mcL Normal 0.00-0.00 [facility] Comment on above: Performed By: #### 4 [id number] ####[facility] [address] [place], [place] [address] Glenn Gudino M.D. [id number] Erythrocyte distribution width (RBC) [Ratio] 16.4 % High 11.6-14.8 [facility] Comment on above: Performed By: #### 4 [id number] ####[facility] [address] [place] [address] Glenn Gudino M.D. [id number] Hematocrit (Bld) [Volume fraction] 23.0 % Low 36.0-46.0 [facility] Comment on above: Performed By: #### 4 [id number] ####[facility] [address] [place] [address] Glenn Gudino M.D. [id number] Hemoglobin (Bld) [Mass/Vol] 7.8 g/dL Low 12.0-16.0 [facility] Comment on above: Performed By: #### 4 [id number] ####[facility] [address] [place], [place] [address] Glenn Gudino M.D. [id number] MCH (RBC) [Entitic mass] 27.7 pg Normal 26.0-34.0 [facility] Comment on above: Performed By: #### 4 [id number] ####[facility] [address] [place] [address] Glenn Gudino M.D. [id number] MCV (RBC) [Entitic vol] 81.6 fL Normal 80.0-100.0 [facility] Comment on above: Performed By: #### 4 5213 ####[facility] [address] [place], [place] [address] Glenn Gudino M.D. [id number] MEAN CORPUSCULAR HEMOGLOBIN CONC 33.9 g/dL Normal 31.0-37.0 [facility] Comment on above: Performed By: #### 4 [id number] ####[facility] [address] [place] [address] Glenn Gudino M.D. [id number] Platelet mean volume (Bld) [Entitic vol] 9.6 fL Normal 9.4-12.4 [facility] Comment on above: Performed By: #### 4 [id number] ####[facility] [address] [place] [address] Glenn Gudino M.D. [id number] Platelets (Bld) [#/Vol] 270 10*3/uL Normal 150-400 [facility] Comment on above: Performed By: #### 4 5218 ####[facility] [address] [place], [place] [address] Glenn Gudino M.D. [id number] RBC (Bld) [#/Vol] 2.82 10*6/uL Low 4.00-5.20 [facility] Comment on above: Performed By: #### 4 5218 ####[facility] [address] [place], [place] [address] Glenn Gudino M.D. [id number] WBC (Bld) [#/Vol] 16.66 10*3/uL High 4.50-11.00 [facility] Comment on above: Performed By: #### 4 5218 ####[facility] [address] [place] [address] Glenn Gudino M.D. [id number] HEPATIC FUNCTION PANELon Albumin [Mass/Vol] 2.3 g/dL Low 3.2-5.2 [facility] Comment on above: Performed By: #### 4 5866 ####[facility] [address] [place], [place] [address]Karma Gudino M.D. [id number] ALP [Catalytic activity/Vol] 62 U/L Normal 40-150 [facility] Comment on above: Performed By: #### 4 5866 ####[facility] [address] [place], [place] [address] Glenn Gudino M.D. [id number] ALT [Catalytic activity/Vol] 31 U/L Normal 0-35 U/L [facility] Comment on above: Performed By: #### 4 5866 ####[facility] [address] [place] [address] Glenn Gudino M.D. [id number] AST [Catalytic activity/Vol] 51 U/L High 0-35 U/L [facility] Comment on above: Performed By: #### 4 5866 ####[facility] [address] [place] [address] Glenn Gudino M.D. [id number] Bilirubin [Mass/Vol] 0.4 mg/dL Normal 0.0-1.3 [facility] Comment on above: Performed By: #### 4 5866 ####[facility] [address] [place] [address] Glenn Gudino M.D. [id number] Bilirubin.indirect [Mass/Vol] 0.2 mg/dL Normal 0.0-0.4 [facility] Comment on above: Performed By: #### 4 5866 ####[facility] [address] [place], [place] [address] Glenn Gudino M.D. [id number] Protein [Mass/Vol] 5.8 g/dL Low 6.0-8.0 [facility] Comment on above: Performed By: #### 4 5866 ####[facility] [address] [place], [place] [address] Glenn Gudino M.D. [id number] MAGNESIUM LEVELon 10-11-2023 Magnesium [Mass/Vol] 2.2 mg/dL Normal 1.6-2.4 [facility] Comment on above: Performed By: #### 4 6109 ####[facility] [address] [place] [address] Glenn Gudion M.D. [id number] OP NOTEon 10-11-2023 OP NOTE Normal [facility] PHOSPHORUSon 10-11-2023 Phosphate [Mass/Vol] 4.7 mg/dL High 2.8-4.1 [facility] Comment on above: Performed By: #### 4 6299 ####[facility] [address] [place], [place] [address] Glenn Gudino M.D. [id number] POC GLUCOSE - [facility] 024 Glucose [Mass/Vol] 111 mg/dL High 65-99 [facility] Comment on above: Performed By: #### 4 6995 ####[facility] [address] [place] [address] [id number] [facility] Glucose [Mass/Vol] 56 mg/dL Low 65-99 [facility] Comment on above: Performed By: #### 4 69 ####[facility] [address] [place] [address] [id number] [facility] Glucose [Mass/Vol] 42 mg/dL Low 65-99 [facility] Comment on above: Performed By: #### 4 4876 ####[facility] [address] [place] [address] [id number] [facility] Glucose [Mass/Vol] 50 mg/dL Low 65-99 [facility] Comment on above: Performed By: #### 4 7598 ####[facility] [address] [place] [address] [id number] [facility] Glucose [Mass/Vol] 59 mg/dL Low 65-99 [facility] Comment on above: Performed By: #### 4 8484 ####[facility] [address] [place] [address] [id number] [facility] Glucose [Mass/Vol] 74 mg/dL Normal 65-99 [facility] Comment on above: Performed By: #### 4 6932 ####[facility] [address] [place] [address] [id number] [facility] Glucose [Mass/Vol] 119 mg/dL High 65-99 [facility] Comment on above: Performed By: #### 4 6932 ####[facility] [address] [place] [address] [id number] [facility] Glucose [Mass/Vol] 88 mg/dL Normal 65-99 [facility] Comment on above: Performed By: #### 4 6932 ####[facility] [address] [place] [address] [id number] [facility] Glucose [Mass/Vol] 126 mg/dL High 65-99 [facility] Comment on above: Performed By: #### 4 6932 ####[facility] [address] [place] [address] [id number] [facility] POTASSIUM LEVELon 10-11-2023 Potassium [Moles/Vol] 4.1 mmol/L Normal 3.5-5.1 [facility] Comment on above: Performed By: #### 4 6351 ####[facility] [address] [place] [address] Glenn Gudino M.D. [id number] PT/INRon 10-11-2023 INR Coag (PPP) [Relative time] 1.1 {INR} Normal 0.8-1.1 [facility] Comment on above: Order Comment: Jennifer retana the induction phase of oral anticoagulation, the INR may not reflect the anticoagulation status of the patient. Therapeutic ranges for INR's are:Most clinical situations: INR 2.0-3.0Mechanical Prosthetic Valve: INR 2.5-3.5Critical: INR >5.0 Performed By: #### 4 6391 ####[facility] [address] [place], [place] [address] Glenn Gudino M.D. [id number] PT Coag (PPP) [Time] 14.3 s Normal 11.8-14.3 [facility] Comment on above: Order Comment: Jennifer retana the induction phase of oral anticoagulation, the INR may not reflect the anticoagulation status of the patient. Therapeutic ranges for INR's are:Most clinical situations: INR 2.0-3.0Mechanical Prosthetic Valve: INR 2.5-3.5Critical: INR >5.0 Performed By: #### 4 6391 ####[facility] [address] [place] [address] Glenn Gudino M.D. [id number] APTTon 10-10-2023 aPTT Coag (Bld) [Time] 34 s Normal 23-34 [facility] Comment on above: Order Comment: Thera peutic range for APTT's is 68 - 104 seconds Performed By: #### 4 5113 ####[facility] [address] [place], [place] [address] Glenn Gudino M.D. [id number] BILIRUBIN, DIRECTon 10-10-19 24 Bilirubin.indirect [Mass/Vol] 1.1 mg/dL High 0.0-0.4 [facility] Comment on above: Performed By: #### 4 5145 ####[facility] [address] [place], [place] [address] Glenn Gudino M.D. [id number] CALCIUM, IONIZEDon 4 CALCIUM IONIZED 4.3 mg/dL Low 4.5-5.3 [facility] Comment on above: Performed By: #### 4 5190 ####[facility] [address] [place], [place] [address] Glenn Gudino M.D. [id number] CBC WITH AUTO DIFFERENTIALon 10-10-2023 AUTO NRBC 0.0 % Normal [facility] Comment on above: Performed By: #### L [id number] ####[facility] [address] [place] [address] Glenn Gudino M.D. [id number] AUTO NRBC ABS COUNT 0.00 K/mcL Normal 0.00-0.00 [facility] Comment on above: Performed By: #### Hugh [id number] ####[facility] [address] [place] [address] Glenn Gudino M.D. [id number] BASOPHILS ABSOLUTE COUNT 0.02 K/mcL Normal 0.00-0.30 [facility] Comment on above: Performed By: #### Hugh [id number] ####[facility] [address] [place] [address] Glenn Gudino M.D. [id number] Basophils/100 WBC (Bld) 0.1 % Normal [facility] Comment on above: Performed By: #### Hugh [id number] ####[facility] [address] [place] [address] Glenn Gudino M.D. [id number] Eosinophils (Bld) [#/Vol] 0.01 10*3/uL Normal 0.00-0.50 [facility] Comment on above: Performed By: #### L [id number] ####[facility] [address] [place] [address] Glenn Gudino M.D. [id number] Eosinophils/100 WBC (Bld) 0.1 % Normal [facility] Comment on above: Performed By: #### Hugh [id number] ####[facility] [address] [place] [address] Glenn Gudino M.D. [id number] Erythrocyte distribution width (RBC) [Ratio] 15.5 % High 11.6-14.8 [facility] Comment on above: Performed By: #### Hugh [id number] ####[facility] [address] [place] [address] Glenn Gudino M.D. [id number] Hematocrit (Bld) [Volume fraction] 28.6 % Low 36.0-46.0 [facility] Comment on above: Result Comment: Repe ated verified Performed By: #### L [id number] ####[facility] [address] [place] [address] Glenn Gudino M.D. [id number] Hemoglobin (Bld) [Mass/Vol] 9.7 g/dL Low 12.0-16.0 [facility] Comment on above: Result Comment: Repe ated verified Performed By: #### L [id number] ####[facility] [address] [place] [address] Glenn Gudino M.D. [id number] IG ABSOLUTE 0.46 K/mcL High 0.00-0.30 [facility] Comment on above: Performed By: #### L [id number] ####[facility] [address] [place] [address] Glenn Gudino M.D. [id number] IG PERCENT 3.00 % Normal [facility] Comment on above: Result Comment: The IG parameter is the percentage of metamyelocytes, myelocytes and promyelocytes. An immature granulocyte count (IG) of 1% or more suggests the possibility of infection, an IG count of 3% is very likely related to an infection. Performed By: #### L [id number] ####[facility] [address] [place] [address] Glenn Gudino M.D. [id number] Lymphocytes (Bld) [#/Vol] 0.44 10*3/uL Low 0.90-4.00 [facility] Comment on above: Performed By: #### L [id number] ####[facility] [address] [place], [place] [address] Glenn Gudino M.D. [id number] Lymphocytes/100 WBC (Bld) 2.9 % Normal [facility] Comment on above: Performed By: #### Hugh [id number] ####[facility] [address] [place] [address] Glenn Gudino M.D. [id number] MCH (RBC) [Entitic mass] 28.1 pg Normal 26.0-34.0 [facility] Comment on above: Performed By: #### Hugh [id number] ####[facility] [address] [place] [address] Glenn Gudino M.D. [id number] MCV (RBC) [Entitic vol] 82.9 fL Normal 80.0-100.0 [facility] Comment on above: Performed By: #### Hugh [id number] ####[facility] [address] [place] [address] Glenn Gudino M.D. [id number] MEAN CORPUSCULAR HEMOGLOBIN CONC 33.9 g/dL Normal 31.0-37.0 [facility] Comment on above: Performed By: #### Hugh [id number] ####[facility] [address] [place], [place] [address]arma Gudino M.D. [id number] Monocytes (Bld) [#/Vol] 0.76 10*3/uL Normal 0.30-0.90 [facility] Comment on above: Performed By: #### Hugh [id number] ####[facility] [address] [place], [place] [address] Glenn Gudino M.D. [id number] Monocytes/100 WBC (Bld) 5.0 % Normal [facility] Comment on above: Performed By: #### Hugh [id number] ####[facility] [address] [place] [address] Glenn Gudino M.D. [id number] NEUTROPHILS ABSOLUTE COUNT 13.47 K/mcL High 1.70-7.00 [facility] Comment on above: Performed By: #### Hugh [id number] ####[facility] [address] [place], [place] [address] Glenn Gduino M.D. [id number] Neutrophils/100 WBC (Bld) 88.9 % Normal [facility] Comment on above: Performed By: #### Hugh [id number] ####[facility] [address] [place], [place] [address]Karma Gudino M.D. [id number] Platelet mean volume (Bld) [Entitic vol] 9.6 fL Normal 9.4-12.4 [facility] Comment on above: Performed By: #### Hugh [id number] ####[facility] [address] [place] [address] Glenn Gudino M.D. [id number] Platelets (Bld) [#/Vol] 182 10*3/uL Normal 150-400 [facility] Comment on above: Result Comment: Repe ated verified Performed By: #### Hugh [id number] ####[facility] [address] [place], [place] [address] Glenn Gudino M.D. [id number] RBC (Bld) [#/Vol] 3.45 10*6/uL Low 4.00-5.20 [facility] Comment on above: Performed By: #### Hugh [id number] ####[facility] [address] [place], [place] [address] Glenn Gudino M.D. [id number] WBC (Bld) [#/Vol] 15.16 10*3/uL High 4.50-11.00 [facility] Comment on above: Performed By: #### L [id number] ####[facility] [address] [place], [place] [address] Glenn Gudino M.D. [id number] COMPREHENSIVE METABOLIC PANE Magdaleno 10-10-2023 Albumin [Mass/Vol] 2.2 g/dL Low 3.2-5.2 [facility] Comment on above: Order Comment: [facility] has implemented the eGFR calculation approach that does not have a coefficient for race that conforms to the NKF-ASN Task Force Recommendations. Performed By: #### 4 6126 ####[facility] [address] [place] [address] Glenn Gudino M.D. [id number] ALP [Catalytic activity/Vol] 62 U/L Normal 40-150 [facility] Comment on above: Order Comment: [facility] has implemented the eGFR calculation approach that does not have a coefficient for race that conforms to the NKF-ASN Task Force Recommendations. Performed By: #### 4 6126 ####[facility] [address] [place] [address] Glenn Gudino M.D. [id number] ALT [Catalytic activity/Vol] 31 U/L Normal 0-35 U/L [facility] Comment on above: Order Comment: [facility] has implemented the eGFR calculation approach that does not have a coefficient for race that conforms to the NKF-ASN Task Force Recommendations. Result Comment: Slig htly Hemolyzed Performed By: #### 4 6126 ####[facility] [address] [place], [place] [address] Glenn Gudino M.D. [id number] Anion gap [Moles/Vol] 22 mmol/L High 10-[address] [facility] Comment on above: Order Comment: [facility] has implemented the eGFR calculation approach that does not have a coefficient for race that conforms to the NKF-ASN Task Force Recommendations. Performed By: #### 4 6126 ####[facility] [address] [place], [place] [address] Glenn Gudino M.D. [id number] AST [Catalytic activity/Vol] 52 U/L High 0-35 U/L [facility] Comment on above: Order Comment: [facility] has implemented the eGFR calculation approach that does not have a coefficient for race that conforms to the NKF-ASN Task Force Recommendations. Result Comment: Marisol leblanc Hemolyzed Performed By: #### 4 6126 ####[facility] [address] [place], [place] [address] Glenn Gudino M.D. [id number] Bilirubin [Mass/Vol] 1.3 mg/dL Normal 0.0-1.3 [facility] Comment on above: Order Comment: [facility] has implemented the eGFR calculation approach that does not have a coefficient for race that conforms to the NKF-ASN Task Force Recommendations. Performed By: #### 4 6126 ####[facility] [address] [place], [place] [address] Glenn Gudino M.D. [id number] Calcium [Mass/Vol] 7.2 mg/dL Low 8.4-10.2 [facility] Comment on above: Order Comment: [facility] has implemented the eGFR calculation approach that does not have a coefficient for race that conforms to the NKF-ASN Task Force Recommendations. Performed By: #### 4 6126 ####[facility] [address] [place], [place] [address] Glenn Gudino M.D. [id number] Chloride [Moles/Vol] 97 mmol/L Low 98-108 [facility] Comment on above: Order Comment: [facility] has implemented the eGFR calculation approach that does not have a coefficient for race that conforms to the NKF-ASN Task Force Recommendations. Performed By: #### 4 6126 ####[facility] [address] [place] [address] Glenn Gudino M.D. [id number] Creatinine [Mass/Vol] 1.32 mg/dL High 0.60-1.10 [facility] Comment on above: Order Comment: [facility] has implemented the eGFR calculation approach that does not have a coefficient for race that conforms to the NKF-ASN Task Force Recommendations. Performed By: #### 4 6126 ####[facility] [address] [place] [address] Glenn Gudino M.D. [id number] EGFR 46 mL/min/1.73 m2 Low >=60 [facility] Comment on above: Order Comment: [facility] has implemented the eGFR calculation approach that does not have a coefficient for race that conforms to the NKF-ASN Task Force Recommendations. Result Comment: Joi mated GFR was calculated using the 2020 CKD-EPI creatinine equation. Performed By: #### 4 6126 ####[facility] [address] [place] [address] Glenn Gudino M.D. [id number] Glucose [Mass/Vol] 147 mg/dL High 65-99 [facility] Comment on above: Order Comment: [facility] has implemented the eGFR calculation approach that does not have a coefficient for race that conforms to the NKF-ASN Task Force Recommendations. Performed By: #### 4 6126 ####[facility] [address] [place] [address] Glenn Gudino M.D. [id number] HCO3 (Bld) [Moles/Vol] 19 mmol/L Low 21-32 [facility] Comment on above: Order Comment: [facility] has implemented the eGFR calculation approach that does not have a coefficient for race that conforms to the NKF-ASN Task Force Recommendations. Performed By: #### 4 6126 ####[facility] [address] [place] [address] Glenn Gudino M.D. [id number] Potassium [Moles/Vol] 4.9 mmol/L Normal 3.5-5.1 [facility] Comment on above: Order Comment: [facility] has implemented the eGFR calculation approach that does not have a coefficient for race that conforms to the NKF-ASN Task Force Recommendations. Result Comment: Marisol ramly Hemolyzed Performed By: #### 4 6126 ####[facility] [address] [place] [address] Glenn Gudino M.D. [id number] Protein [Mass/Vol] 5.1 g/dL Low 6.0-8.0 [facility] Comment on above: Order Comment: [facility] has implemented the eGFR calculation approach that does not have a coefficient for race that conforms to the NKF-ASN Task Force Recommendations. Performed By: #### 4 6126 ####[facility] [address] [place] [address] Glenn Gudino M.D. [id number] Sodium [Moles/Vol] 133 mmol/L Low 135-145 [facility] Comment on above: Order Comment: [facility] has implemented the eGFR calculation approach that does not have a coefficient for race that conforms to the NKF-ASN Task Force Recommendations. Performed By: #### 4 6126 ####[facility] [address] [place] [address] Glenn Gudino M.D. [id number] Urea nitrogen [Mass/Vol] 39 mg/dL High 8-25 [facility] Comment on above: Order Comment: [facility] has implemented the eGFR calculation approach that does not have a coefficient for race that conforms to the NKF-ASN Task Force Recommendations. Performed By: #### 4 6126 ####[facility] [address] [place] [address] Glenn Gudino M.D. [id number] Urea nitrogen/Creatinine [Mass ratio] 29.5 mg/mg High 10.0-20.0 [facility] Comment on above: Order Comment: [facility] has implemented the eGFR calculation approach that does not have a coefficient for race that conforms to the NKF-ASN Task Force Recommendations. Performed By: #### 4 6126 ####[facility] [address] [place] [address] Glenn Gudino M.D. [id number] CONSULTon 10-10-2023 CONSULT Normal [facility] CONSULT Normal [facility] FIBRINOGENon 10-10-2023 FIBRINOGEN LEVEL 347 mg/dL Normal 224-483 [facility] Comment on above: Performed By: #### 4 5616 ####[facility] [address] [place] [address] Glenn Gudino M.D. [id number] LACTIC ACID, PLASMAon 2023 LACTIC ACID, PLASMA 1.0 mmol/L Normal 0.6-2.0 [facility] Comment on above: Performed By: #### 4 6053 ####[facility] [address] [place] [address] Glenn Gudino M.D. [id number] LDHon 10-10-2023 LDH [Catalytic activity/Vol] 339 U/L High 100-250 [facility] Comment on above: Performed By: #### 4 6065 ####[facility] [address] [place], [place] [address] Glenn Gudino M.D. [id number] MAGNESIUM LEVELon 10-10-2023 Magnesium [Mass/Vol] 2.3 mg/dL Normal 1.6-2.4 [facility] Comment on above: Performed By: #### 4 6109 ####[facility] [address] [place], [place] [address] Glenn Gudino M.D. [id number] PHOSPHORUSon 10-10-2023 Phosphate [Mass/Vol] 7.3 mg/dL High 2.8-4.1 [facility] Comment on above: Performed By: #### 4 6299 ####[facility] [address] [place], [place] [address] Glenn Gudino M.D. [id number] POC ARTERIAL BLOOD GAS PANEL -[facility] 10-10-2023 BASE EXCESS, ARTERIAL -4.0 Low -2.0-2.0 [facility] Comment on above: Performed By: #### 4 8916 ####[facility] [address] [place] [address] [id number] [facility] CALCIUM IONIZED 4.2 mg/dL Low 4.5-5.3 [facility] Comment on above: Performed By: #### 4 9638 ####[facility] [address] [place] [address] [id number] [facility] CARBOXYHEMOGLOBIN 1.9 % of total Hb High <=1.5 [facility] Comment on above: Result Comment: Refe rence Ranges:Suburban Non-smokers: <1.5%Smokers: 1.5-5.0%Heavy Smokers: 5.0-9.0% Performed By: #### 4 6516 ####[facility] [address] [place] [address] [id number] [facility] Chloride [Moles/Vol] 98 mmol/L Normal 98-108 [facility] Comment on above: Performed By: #### 4 4475 ####[facility] [address] [place] [address] [id number] [facility] FIO2 40 Normal [facility] Comment on above: Performed By: #### 4 7916 ####[facility] [address] [place] [address] [id number] [facility] Glucose [Mass/Vol] 142 mg/dL High 65-99 [facility] Comment on above: Performed By: #### 4 5816 ####[facility] [address] [place] [address] [id number] [facility] HCO3 (Bld) [Moles/Vol] 21.3 mmol/L Low 22.0-26.0 [facility] Comment on above: Performed By: #### 4 4411 ####[facility] [address] [place] [address] [id number] [facility] Hematocrit (Bld) [Volume fraction] 31.0 % Low 36.0-46.0 [facility] Comment on above: Performed By: #### 4 4916 ####RM POCT LAB [address] [place] [address] [id number] [facility] Hemoglobin (Bld) [Mass/Vol] 10.1 g/dL Low 12.0-16.0 [facility] Comment on above: Performed By: #### 4 9016 ####RM PO[facility] LAB [address] [place] [address] [id number] [facility] LACTIC ACID, WHOLE BLOOD 1.1 mmol/L Normal 0.6-2.0 [facility] Comment on above: Performed By: #### 4 1416 ####RM PO[facility] [address] [place] [address] [id number] [facility] METHEMOGLOBIN < Normal 0.0-2.0 [facility] Comment on above: Performed By: #### 4 0016 ####RM PO[facility] LAB [address] [place] [address] [id number] [facility] O2HB 96.1 % Normal 94.0-98.0 [facility] Comment on above: Performed By: #### 4 2416 ####RM POCT LAB [address] [place] [address] [id number] [facility] Oxygen saturation in Blood 98.4 % Normal 92.0-99.0 [facility] Comment on above: Performed By: #### 4 8316 ####RM POCT LAB [address] [place] [address] [id number] [facility] PCO2 ARTERIAL 38.7 mm Hg Normal 35.0-45.0 [facility] Comment on above: Performed By: #### 4 9931 ####RM POCT LAB [address] [place] [address] [id number] [facility] PEEP RAD 5 Normal [facility] Comment on above: Performed By: #### 4 1912 ####RM POCT LAB [address] [place], [place] [address] [id number] [facility] PH ARTERIAL 7.35 Normal 7.35-7.45 [facility] Comment on above: Performed By: #### 4 8716 ####RM POCT [facility] [address] [place] [address] [id number] [facility] PO2 ARTERIAL 96 mm Hg Normal 80-100 [facility] Comment on above: Performed By: #### 4 8716 ####[facility] PO[facility] [address] [place] [address] [id number] [facility] Potassium [Moles/Vol] 4.6 mmol/L Normal 3.5-5.1 [facility] Comment on above: Performed By: #### 4 8716 ####RM POCT [facility] [address] [place] [address] [id number] [facility] Sodium [Moles/Vol] 131 mmol/L Low 135-145 [facility] Comment on above: Performed By: #### 4 8716 ####RM POCT LAB [address] [place] [address] [id number] [facility] POC GLUCOSE - [facility] 024 Glucose [Mass/Vol] 118 mg/dL High 65-99 [facility] Comment on above: Performed By: #### 4 3349 ####RM POCT LAB [address] [place] [address] [id number] [facility] Glucose [Mass/Vol] 53 mg/dL Low 65-99 [facility] Comment on above: Performed By: #### 4 2440 ####RM POCT LAB [address] [place] [address] [id number] [facility] Glucose [Mass/Vol] 144 mg/dL High 65-99 [facility] Comment on above: Performed By: #### 9 1307 ####[facility] [address] [place] [address] [id number] [facility] Glucose [Mass/Vol] 47 mg/dL Low 65-99 [facility] Comment on above: Performed By: #### 0 6238 ####RM POCT LAB [address] [place] [address] [id number] [facility] Glucose [Mass/Vol] 87 mg/dL Normal [address] [place] [address] Comment on above: Performed By: #### 4 6932 ####RM POCT [facility] [address] [place] [address] [id number] [facility] Glucose [Mass/Vol] 167 mg/dL High [address] [place] [address] Comment on above: Performed By: #### 4 6932 ####RM PO[facility] [address] [place] [address] [id number] [facility] Glucose [Mass/Vol] 199 mg/dL High [address] [place] [address] Comment on above: Performed By: #### 4 6932 ####RM POCT LAB [address] [place] [address] [id number] [facility] Glucose [Mass/Vol] 186 mg/dL High [address] [place] [address] Comment on above: Performed By: #### 4 6932 ####RM POCT [facility] [address] [place] [address] [id number] [facility] Glucose [Mass/Vol] 158 mg/dL High [address] [place] [address] Comment on above: Performed By: #### 4 6932 ####RM POCT LAB [address] [place] [address] [id number] [facility] PT/INRon 10-10-2023 INR Coag (PPP) [Relative time] 1.5 {INR} High 0.8-1.1 [facility] Comment on above: Order Comment: Jennifer retana the induction phase of oral anticoagulation, the INR may not reflect the anticoagulation status of the patient. Therapeutic ranges for INR's are:Most clinical situations: INR 2.0-3.0Mechanical Prosthetic Valve: INR 2.5-3.5Critical: INR >5.0 Performed By: #### 4 8753 ####[facility] [address] [place] [address] Glenn Gudino M.D. [id number] PT Coag (PPP) [Time] 18.2 s High 11.8-14.3 [facility] Comment on above: Order Comment: Jennifer retana the induction phase of oral anticoagulation, the INR may not reflect the anticoagulation status of the patient. Therapeutic ranges for INR's are:Most clinical situations: INR 2.0-3.0Mechanical Prosthetic Valve: INR 2.5-3.5Critical: INR >5.0 Performed By: #### 4 6391 ####[facility] [address] [place] [address] Glenn Gudino M.D. [id number] TRIGLYCERIDESon 10-10-2023 Triglyceride [Mass/Vol] 111 mg/dL Normal 30-150 [facility] Comment on above: Performed By: #### 4 6606 ####[facility] [address] [place] [address] Glenn Gudino M.D. [id number] XR CHEST PA/APon 10-10-2023 XR CHEST PA/AP Normal [facility] Comment on above: Order Comment: Injur y/Trauma or Illness?:Illness/OtherHow long have you had these symptoms (acute/chronic)?:UnknownReason for exam?:ETT placementHistory of cancer?:uSurgeries, chemotherapy, or radiation?:uType of Exam?:UnknownAdditional signs and symptoms?:no ABORH VERIFICATIONon 024 ABO and Rh group Nom (Bld) Blood group O Rh(D) positive [facility] [place] ABO and Rh group Nom (Bld) ABO/Rh Verification [facility] [place] Comment on above: Result Comment: Romi ent's ABO/Rh is verified. APTTon 10-09-2023 aPTT Coag (Bld) [Time] 36 s High 23-34 [facility] Comment on above: Order Comment: Thera peutic range for APTT's is 68 - 104 seconds Performed By: #### 4 5113 #### LAB [address] [address] Jaron Méndez M.D. [id number] BASIC METABOLIC PANELon 05- Anion gap [Moles/Vol] 14 mmol/L Normal 10-20 [facility] Comment on above: Order Comment: [facility] has implemented the eGFR calculation approach that does not have a coefficient for race that conforms to the NKF-ASN Task Force Recommendations. Performed By: #### 4 6124 #### LAB [address] [place] [address] Jaron Méndez M.D. [id number] Calcium [Mass/Vol] 8.6 mg/dL Normal 8.4-10.2 [facility] Comment on above: Order Comment: [facility] has implemented the eGFR calculation approach that does not have a coefficient for race that conforms to the NKF-ASN Task Force Recommendations. Performed By: #### 4 6124 #### [address] [address] Jaron Méndez M.D. [id number] Chloride [Moles/Vol] 95 mmol/L Low 98-108 [facility] Comment on above: Order Comment: [facility] has implemented the eGFR calculation approach that does not have a coefficient for race that conforms to the NKF-ASN Task Force Recommendations. Performed By: #### 4 6124 #### [address] [address] Jaron Méndez M.D. [id number] Creatinine [Mass/Vol] 1.80 mg/dL High 0.60-1.10 [facility] Comment on above: Order Comment: [facility] has implemented the eGFR calculation approach that does not have a coefficient for race that conforms to the NKF-ASN Task Force Recommendations. Performed By: #### 4 6124 #### LAB [address] [place] [address] Jaron Méndez M.D. [id number] EGFR 32 mL/min/1.73 m2 Low >=60 [facility] Comment on above: Order Comment: [facility] has implemented the eGFR calculation approach that does not have a coefficient for race that conforms to the NKF-ASN Task Force Recommendations. Result Comment: Joi mated GFR was calculated using the 2020 CKD-EPI creatinine equation. Performed By: #### 4 6124 #### [address] [address] Jaron Méndez M.D. [id number] Glucose [Mass/Vol] 131 mg/dL High 65-99 [facility] Comment on above: Order Comment: [facility] has implemented the eGFR calculation approach that does not have a coefficient for race that conforms to the NKF-ASN Task Force Recommendations. Performed By: #### 4 6124 #### [address] [address] Jaron Méndez M.D. [id number] HCO3 (Bld) [Moles/Vol] 23 mmol/L Normal 21-32 [facility] Comment on above: Order Comment: [facility] has implemented the eGFR calculation approach that does not have a coefficient for race that conforms to the NKF-ASN Task Force Recommendations. Performed By: #### 4 6124 #### [address] [address] Jaron Méndez M.D. [id number] Potassium [Moles/Vol] 4.1 mmol/L Normal 3.5-5.1 [facility] Comment on above: Order Comment: [facility] has implemented the eGFR calculation approach that does not have a coefficient for race that conforms to the NKF-ASN Task Force Recommendations. Performed By: #### 4 6124 #### [address] [address] Jaron Méndez M.D. [id number] Sodium [Moles/Vol] 128 mmol/L Low 135-145 [facility] Comment on above: Order Comment: [facility] has implemented the eGFR calculation approach that does not have a coefficient for race that conforms to the NKF-ASN Task Force Recommendations. Performed By: #### 4 6124 #### SH [address] [address] Jaron Méndez M.D. [id number] Urea nitrogen [Mass/Vol] 46 mg/dL High 8-25 [facility] Comment on above: Order Comment: [facility] has implemented the eGFR calculation approach that does not have a coefficient for race that conforms to the NKF-ASN Task Force Recommendations. Performed By: #### 4 6124 #### SH LAB [address] [place] [address] Jaron Méndez M.D. [id number] Urea nitrogen/Creatinine [Mass ratio] 25.6 mg/mg High 10.0-20.0 [facility] Comment on above: Order Comment: [facility] has implemented the eGFR calculation approach that does not have a coefficient for race that conforms to the NKF-ASN Task Force Recommendations. Performed By: #### 4 6124 #### SH [address] [address] Jaron Méndez M.D. [id number] CBC WITH AUTO DIFFERENTIALon 10-09-2023 BASOPHILS ABSOLUTE COUNT 0.01 K/mcL Normal 0.00-0.30 [facility] Comment on above: Performed By: #### 4 6391 #### SH [address] [address] Jaron Méndez M.D. [id number] Basophils/100 WBC (Bld) 0.0 % Normal [facility] Comment on above: Performed By: #### 4 6391 #### SH [address] [address] Jaron Méndez M.D. [id number] Eosinophils (Bld) [#/Vol] 0.00 10*3/uL Normal 0.00-0.50 [facility] Comment on above: Performed By: #### 4 6391 #### SH LAB [address] [place] [address] Jaron Méndez M.D. [id number] Eosinophils/100 WBC (Bld) 0.0 % Normal [facility] Comment on above: Performed By: #### 4 6391 #### [facility] LAB [address] [place] [address] Jaron Méndez M.D. [id number] Erythrocyte distribution width (RBC) [Ratio] 16.3 % High 11.6-14.8 [facility] Comment on above: Performed By: #### 4 6391 #### [facility] LAB [address] [place] [address] Jaron Méndez M.D. [id number] Hematocrit (Bld) [Volume fraction] 22.3 % Low 36.0-46.0 [facility] Comment on above: Performed By: #### 4 6391 #### SH LAB [address] [place] [address] Jaron Méndez M.D. [id number] Hemoglobin (Bld) [Mass/Vol] 7.2 g/dL Low 12.0-16.0 [facility] Comment on above: Performed By: #### 4 6391 #### SH LAB [address] [place] [address] Jaron Méndez M.D. [id number] IG ABSOLUTE 0.33 K/mcL High 0.00-0.30 [facility] Comment on above: Performed By: #### 4 6391 #### SH [address] [address] Jaron Méndez M.D. [id number] IG PERCENT 1.40 % [facility] [place] Comment on above: Result Comment: The IG parameter is the percentage of metamyelocytes, myelocytes and promyelocytes. An immature granulocyte count (IG) of 1% or more suggests the possibility of infection, an IG count of 3% is very likely related to an infection. Performed By: #### 4 6391 #### SH LAB [address] [place] [address] Jaron Méndez M.D. [id number] Lymphocytes (Bld) [#/Vol] 1.27 10*3/uL Normal 0.90-4.00 [facility] Comment on above: Performed By: #### 4 6391 #### SH LAB [address] [place], [place] [address] Jaron Méndez M.D. [id number] Lymphocytes/100 WBC (Bld) 5.6 % [facility] [place] Comment on above: Performed By: #### 4 6391 #### SH LAB [address] [place] [address] Jaron Méndez M.D. [id number] MCH (RBC) [Entitic mass] 27.7 pg Normal 26.0-34.0 [facility] Comment on above: Performed By: #### 4 6391 #### SH LAB [address] [place], [place] [address] Jaron Méndez M.D. [id number] MCV (RBC) [Entitic vol] 85.8 fL Normal 80.0-100.0 [facility] Comment on above: Performed By: #### 4 6391 #### SH LAB [address] [place], [place] [address] Jaron Méndez M.D. [id number] MEAN CORPUSCULAR HEMOGLOBIN CONC 32.3 g/dL Normal 31.0-37.0 [facility] Comment on above: Performed By: #### 4 6391 #### SH LAB [address] [place] [address] Jaron Méndez M.D. [id number] Monocytes (Bld) [#/Vol] 1.96 10*3/uL High 0.30-0.90 [facility] Comment on above: Performed By: #### 4 6391 #### SH LAB [address] [place], [place] [address] Jaron Méndez M.D. [id number] Monocytes/100 WBC (Bld) 8.6 % Normal [facility] Comment on above: Performed By: #### 4 6391 #### SH LAB [address] [place] [address] Jaron Méndez M.D. [id number] NEUTROPHILS ABSOLUTE COUNT 19.22 K/mcL High 1.70-7.00 [facility] Comment on above: Performed By: #### 4 6391 #### SH LAB [address] [place], [place] [address] Jaron Méndez M.D. [id number] Neutrophils/100 WBC (Bld) 84.4 % Normal [facility] Comment on above: Performed By: #### 4 6391 #### SH LAB [address] [place] [address] Jaron Méndez M.D. [id number] Platelet mean volume (Bld) [Entitic vol] 9.6 fL Normal 9.4-12.4 [facility] Comment on above: Performed By: #### 4 6391 #### SH LAB [address] [place] [address] Jaron Méndez M.D. [id number] Platelets (Bld) [#/Vol] 389 10*3/uL Normal 150-400 [facility] Comment on above: Performed By: #### 4 6391 #### SH LAB [address] [place] [address] Jaron Méndez M.D. [id number] RBC (Bld) [#/Vol] 2.60 10*6/uL Low 4.00-5.20 [facility] Comment on above: Performed By: #### 4 6391 #### SH LAB [address] [place] [address] Jaron Méndez M.D. [id number] WBC (Bld) [#/Vol] 22.79 10*3/uL High 4.50-11.00 [facility] Comment on above: Performed By: #### 4 6391 #### SH LAB [address] [place] [address] Jaron Méndez M.D. [id number] COVID-19/INFLUENZA A,B MOLEC [facility] 10-09-2023 SARS-CoV-2 (COVID-19) Ab IA Ql INFLUENZA A (CEPHEID) Not Detected INFLUENZA B (CEPHEID) Not Detected SARS-COV-2 (CEPHEID) Not Detected This test was performed under the FDA's Emergency Use Authorization (EUA). Testing was performed using the Xpert Xpress SARS-CoV-2/Flu/RSV plus RT-PCR CepDNA Gamesid assay on the GeneMax-Vizpert Xpress System. This test has not been approved for use in asymptomatic patients and its performance in this patient population has not been evaluated. Negative results do not rule out the presence of SARS-CoV-2/COVID-19. Fact sheets for this EUA can be found at the following links: For Healthcare Providers: https://www.fda.gov/media/ 531799/download For Patients: https://www.fda.gov/media/ 386933/download [facility] [place] Comment on above: Performed By: #### L [id number] #### SH [facility] [address] [place], [place] [address] Jaron Méndez M.D. [id number] CT ABDOMEN PELVIS WITHOUT CO NTRASTon 10-09-2023 [...] on MonOctober 09, 2023 7:43:05 PM EDT [facility] [place] Comment on above: Order Comment: Jennifer retana the induction phase of oral anticoagulation, the INR may not reflect the anticoagulation status of the patient. Therapeutic ranges for INR's are: Most clinical situations: INR 2.0-3.0 Mechanical Prosthetic Valve: INR 2.5-3.5 Critical: INR >5.0 CT ANGIOGRAM CHEST ABDOMEN P VISon 10-09-2023 CT ANGIOGRAM CHEST ABDOMEN PELVIS EXAMINATION: [...] on MonOctober 09, 2023 9:59:46 PM EDT [facility] [place] Comment on above: Order Comment: Jennifer retana the induction phase of oral anticoagulation, the INR may not reflect the anticoagulation status of the patient. Therapeutic ranges for INR's are: Most clinical situations: INR 2.0-3.0 Mechanical Prosthetic Valve: INR 2.5-3.5 Critical: INR >5.0 CT CHEST LOW DOSE LUNG STALINNancy BIRCH Ramila Guevara 10-09-2023 CT CHEST LOW DOSE LUNG [...] MonOctober 10, 2023 1:59:01 PM EDT Normal [facility] Comment on above: Order Comment: Injur y/Trauma or Illness?:Illness/Other How long have you had these symptoms (acute/chronic)?:Chronic Reason for exam?:current smoker, 39 pack yrs, History of deep venous thrombosis, Factor V Leiden mutation (HCC), Lung nodule seen on imaging study, Screening for malignant neoplasm of respiratory organ Type of Exam?:Initial Additional signs and symptoms?:. ED Prov Noteon 10-09-2023 ED Prov Note Normal [facility] ED Prov Note ED PROVIDER NOTE [facility] EMERGENCY DEPART[facility] NAME: Scott Obregon AGE: 63 y.o. : 1960 VISIT DATE: 10/09/2023 CSN: [id number] PCP: Ying Quispe DO Chief Complaint Patient [...] Skin: Negative (more content not included)... Normal [facility] H AND Ney 10-09-2023 H AND P Normal [facility] HEPATIC FUNCTION PANELon Albumin [Mass/Vol] 2.3 g/dL Low 3.2-5.2 [facility] Comment on above: Performed By: #### 4 5866 #### SH LAB [address] [place] [address] Jaron Méndez M.D. [id number] ALP [Catalytic activity/Vol] 70 U/L Normal 40-150 [facility] Comment on above: Performed By: #### 4 5866 #### SH LAB [address] [place] [address] Jaron Méndez M.D. [id number] ALT [Catalytic activity/Vol] 46 U/L Normal 14-65 [facility] Comment on above: Performed By: #### 4 5866 #### SH LAB [address] [place] [address] Jaron Méndez M.D. [id number] AST [Catalytic activity/Vol] 55 U/L High 0-35 U/L [facility] Comment on above: Performed By: #### 4 5866 #### SH LAB [address] [place] [address] Jaron Méndez M.D. [id number] Bilirubin [Mass/Vol] 0.6 mg/dL Normal 0.0-1.3 [facility] Comment on above: Performed By: #### 4 5866 #### SH LAB [address] [place] [address] Jaron Méndez M.D. [id number] Bilirubin.indirect [Mass/Vol] 0.3 mg/dL Normal 0.0-0.4 [facility] Comment on above: Performed By: #### 4 5866 #### SH LAB [address] [place] [address] Jaron Méndez M.D. [id number] Protein [Mass/Vol] 7.2 g/dL Normal 6.0-8.0 [facility] Comment on above: Performed By: #### 4 5866 #### SH LAB [address] [place] [address] Jaron Méndez M.D. [id number] MORPHOLOGYon 10-09-2023 OVAL SCAN Few Normal [facility] Comment on above: Performed By: #### 4 6391 #### SH LAB [address] [place] [address] Jaron Méndez M.D. [id number] PLATELET ESTIMATE Normal Normal [facility] [place] Comment on above: Performed By: #### 4 6391 #### SH LAB [address] [place], [place] [address] Jaron Méndez M.D. [id number] RBC MORPH SCAN See Comment Normal [facility] Comment on above: Result Comment: RBC Indices confirmed with manual peripheral smear review. Performed By: #### 4 6391 #### SH LAB [address] [place] [address] Jaron Méndez M.D. [id number] MR LUMBAR SPINE [facility] MR LUMBAR SPINE WITHOUT CONTRAST EXAMINATION: [...] on MonOctober 10, 2023 9:08:55 AM EDT [facility] Comment on above: Order Comment: Injur y/Trauma or Illness?:Illness/Other How long have you had these symptoms (acute/chronic)?:Acute Reason for exam?:lbp Type of Exam?:Initial Additional signs and symptoms?:none POC ABG SURG - RALSon 2023 BASE EXCESS, ARTERIAL ISTAT -6 Low -2-2 [facility] Comment on above: Order Comment: Criti cherrie result acted upon time of test. Test performed at bedside. Performed By: #### 4 8737 ####[facility] [address] [place] [address] [id number] RMHPOC Glucose [Mass/Vol] 174 mg/dL High 65-99 [facility] Comment on above: Order Comment: Criti cherrie result acted upon time of test. Test performed at bedside. Performed By: #### 4 8737 ####[facility] [address] [place] [address] [id number] [facility] HCO3 (Bld) [Moles/Vol] 19.6 mmol/L Low 22.0-26.0 [facility] Comment on above: Order Comment: Criti cherrie result acted upon time of test. Test performed at bedside. Performed By: #### 4 8737 ####[facility] [address] [place] [address] [id number] [facility] Hematocrit (Bld) [Volume fraction] 17 % Low 36-46 [facility] Comment on above: Order Comment: Criti cherrie result acted upon time of test. Test performed at bedside. Performed By: #### 4 8737 ####RM POCT LAB [address] [place] [address] [id number] [facility] Hemoglobin (Bld) [Mass/Vol] 5.8 g/dL Off scale low 12.0-16.0 [facility] Comment on above: Order Comment: Criti cherrie result acted upon time of test. Test performed at bedside. Performed By: #### 4 8737 ####RM PO[facility] LAB [address] [place] [address] [id number] [facility] Oxygen saturation in Blood 100.0 % High 92.0-99.0 [facility] Comment on above: Order Comment: Criti cherrie result acted upon time of test. Test performed at bedside. Performed By: #### 4 8737 ####RM POCT LAB [address] [place] [address] [id number] [facility] PCO2 ARTERIAL 38.7 mm Hg Normal 35.0-45.0 [facility] Comment on above: Order Comment: Criti cherrie result acted upon time of test. Test performed at bedside. Performed By: #### 4 8737 ####RM POCT LAB [address] [place] [address] [id number] [facility] PH ARTERIAL 7.31 Low 7.35-7.45 [facility] Comment on above: Order Comment: Criti cherrie result acted upon time of test. Test performed at bedside. Performed By: #### 4 8737 ####RM PO[facility] LAB [address] [place] [address] [id number] [facility] PO2 ARTERIAL 387 mm Hg High 80-100 [facility] Comment on above: Order Comment: Criti cherrie result acted upon time of test. Test performed at bedside. Performed By: #### 4 8744 ####RM PO[facility] LAB [address] [place] [address] [id number] [facility] POC IONIZED CALCIUM 3.6 mg/dL Low 4.5-5.3 [facility] Comment on above: Order Comment: Criti cherrie result acted upon time of test. Test performed at bedside. Performed By: #### 4 8771 ####RM PO[facility] LAB [address] [place] [address] [id number] [facility] Potassium [Moles/Vol] 4.5 mmol/L Normal 3.5-5.1 [facility] Comment on above: Order Comment: Criti cherrie result acted upon time of test. Test performed at bedside. Performed By: #### 4 [id number] ####RM PO[facility] LAB [address] [place] [address] [id number] [facility] Sodium [Moles/Vol] 130 mmol/L Low 135-145 [facility] Comment on above: Order Comment: Criti cherrie result acted upon time of test. Test performed at bedside. Performed By: #### [id number] ####[facility] [address] [place] [address] [id number] [facility] BASE EXCESS, ARTERIAL ISTAT -7 Low -2-2 [facility] Comment on above: Performed By: #### 4 [id number] ####[facility] [address] [place] [address] [id number] [facility] Glucose [Mass/Vol] 189 mg/dL High 65-99 [facility] Comment on above: Performed By: #### 4 [id number] ####[facility] [address] [place] [address] [id number] [facility] HCO3 (Bld) [Moles/Vol] 18.8 mmol/L Low 22.0-26.0 [facility] Comment on above: Performed By: #### 4 [id number] ####[facility] [address] [place] [address] [id number] [facility] PCO2 ARTERIAL 39.9 mm Hg Normal 35.0-45.0 [facility] Comment on above: Performed By: #### 4 [id number] ####[facility] [address] [place] [address] [id number] [facility] PH ARTERIAL 7.28 Low 7.35-7.45 [facility] Comment on above: Performed By: #### 4 [id number] ####[facility] [address] [place] [address] [id number] [facility] PO2 ARTERIAL > High 80-100 [facility] Comment on above: Performed By: #### 4 [id number] ####[facility] [address] [place] [address] [id number] [facility] POC HCT < Low 36-46 [facility] Comment on above: Performed By: #### 4 [id number] ####PENDING SALE TO [facility] [address] [place] [address] [id number] [facility] POC IONIZED CALCIUM 3.8 mg/dL Low 4.5-5.3 [facility] Comment on above: Performed By: #### 4 [id number] ####PEND[facility] S[facility] TO [facility] [address] [place] [address] [id number] [facility] Potassium [Moles/Vol] 4.1 mmol/L Normal 3.5-5.1 [facility] Comment on above: Performed By: #### 4 [id number] ####[facility] [address] [place] [address] [id number] [facility] Sodium [Moles/Vol] 130 mmol/L Low 135-145 [facility] Comment on above: Performed By: #### 4 [id number] ####[facility] [address] [place] [address] [id number] [facility] POC ACTIVATED CLOTTING TIME - [facility]10-09-2023 POC ACT CELITE 246 seconds Normal [facility] Comment on above: Performed By: #### 4 [id number] ####[facility] [address] [place] [address] [id number] [facility] BASE EXCESS, VENOUS -7.0 Low -2.0-2.0 [facility] Comment on above: Order Comment: [facility] has implemented the eGFR calculation approach that does not have a coefficient for race that conforms to the NKF-ASN Task Force Recommendations. Performed By: #### P [id number] ####[facility] [address] [place] [address] 00218 Glenn Gudino M.D. [id number] CALCIUM IONIZED 3.9 mg/dL Low 4.5-5.3 [facility] Comment on above: Order Comment: [facility] has implemented the eGFR calculation approach that does not have a coefficient for race that conforms to the NKF-ASN Task Force Recommendations. Performed By: #### P [id number] ####[facility] [address] [place] [address] 37617 Glenn Gudino M.D. [id number] Chloride [Moles/Vol] 102 mmol/L Normal 98-108 [facility] Comment on above: Order Comment: [facility] has implemented the eGFR calculation approach that does not have a coefficient for race that conforms to the NKF-ASN Task Force Recommendations. Performed By: #### P [id number] ####[facility] [address] [place] [address]8625 Glenn Gudino M.D. [id number] CO2 [Moles/Vol] 18 mmol/L Low 21-32 [facility] Comment on above: Order Comment: [facility] has implemented the eGFR calculation approach that does not have a coefficient for race that conforms to the NKF-ASN Task Force Recommendations. Performed By: #### P [id number] ####[facility] [address] [place] [address] Glenn Gudino M.D. [id number] Creatinine [Mass/Vol] 1.87 mg/dL High 0.60-1.20 [facility] Comment on above: Order Comment: [facility] has implemented the eGFR calculation approach that does not have a coefficient for race that conforms to the NKF-ASN Task Force Recommendations. Performed By: #### P [id number] ####[facility] [address] [place] [address] 38885 Glenn Gudino M.D. [id number] Glucose [Mass/Vol] 119 mg/dL High 65-99 [facility] Comment on above: Order Comment: [facility] has implemented the eGFR calculation approach that does not have a coefficient for race that conforms to the NKF-ASN Task Force Recommendations. Performed By: #### P [id number] ####[facility] [address] [place] [address] 10581 Glenn Gudino M.D. [id number] Hematocrit (Bld) [Volume fraction] 24 % Low 36-46 [facility] Comment on above: Order Comment: [facility] has implemented the eGFR calculation approach that does not have a coefficient for race that conforms to the NKF-ASN Task Force Recommendations. Performed By: #### P [id number] ####[facility] [address] [place] [address] 95493 Glenn Gudino M.D. [id number] HEMOGLOBIN, CALCULATED 8.1 g/dL Low 12.0-16.0 [facility] Comment on above: Order Comment: [facility] has implemented the eGFR calculation approach that does not have a coefficient for race that conforms to the NKF-ASN Task Force Recommendations. Performed By: #### P [id number] ####[facility] [address] [place] [address] 35447 Glenn Gudino M.D. [id number] Oxygen saturation in Blood 80.9 % High 40.0-70.0 [facility] Comment on above: Order Comment: [facility] has implemented the eGFR calculation approach that does not have a coefficient for race that conforms to the NKF-ASN Task Force Recommendations. Performed By: #### P [id number] ####[facility] [address] [place], [place] [id number] Glenn Gudino M.D. [id number] PCO2 VENOUS 32.0 mm Hg Low 41.0-51.0 [facility] Comment on above: Order Comment: [facility] has implemented the eGFR calculation approach that does not have a coefficient for race that conforms to the NKF-ASN Task Force Recommendations. Performed By: #### P [id number] ####[facility] [address] [place] [address] Glenn Gudino M.D. [id number] PH VENOUS 7.35 Normal 7.32-7.42 [facility] Comment on above: Order Comment: [facility] has implemented the eGFR calculation approach that does not have a coefficient for race that conforms to the NKF-ASN Task Force Recommendations. Performed By: #### P [id number] ####[facility] [address] [place], [place] [id number] Glenn Gudino M.D. [id number] PO2 VENOUS 47 mm Hg High 25-40 [facility] Comment on above: Order Comment: [facility] has implemented the eGFR calculation approach that does not have a coefficient for race that conforms to the NKF-ASN Task Force Recommendations. Performed By: #### P [id number] ####[facility] [address] [place] [address] 19401 Glenn Gudino M.D. [id number] POC GFR 30 mL/min/1.73 m2 Low >=60 [facility] Comment on above: Order Comment: [facility] has implemented the eGFR calculation approach that does not have a coefficient for race that conforms to the NKF-ASN Task Force Recommendations. Result Comment: Joi mated GFR was calculated using the 2020 CKD-EPI creatinine equation. Performed By: #### P [id number] ####[facility] [address] [place], [place] [id number] Glenn Gudino M.D. [id number] POC LACTATE 2.8 mmol/L High 0.6-2.0 [facility] Comment on above: Order Comment: [facility] has implemented the eGFR calculation approach that does not have a coefficient for race that conforms to the NKF-ASN Task Force Recommendations. Performed By: #### P [id number] ####[facility] [address] [place] [address] 13058 Glenn Gudino M.D. [id number] Potassium [Moles/Vol] 4.4 mmol/L Normal 3.5-5.1 [facility] Comment on above: Order Comment: [facility] has implemented the eGFR calculation approach that does not have a coefficient for race that conforms to the NKF-ASN Task Force Recommendations. Performed By: #### P [id number] ####[facility] [address] [place], [place] [id number] Glenn Gudino M.D. [id number] Sodium [Moles/Vol] 130 mmol/L Low 135-145 [facility] Comment on above: Order Comment: [facility] has implemented the eGFR calculation approach that does not have a coefficient for race that conforms to the NKF-ASN Task Force Recommendations. Performed By: #### P [id number] ####[facility] [address] [place] [address] 82257 Glenn Gudino M.D. [id number] Urea nitrogen [Mass/Vol] 47 mg/dL High 8-25 [facility] Comment on above: Order Comment: [facility] has implemented the eGFR calculation approach that does not have a coefficient for race that conforms to the NKF-ASN Task Force Recommendations. Performed By: #### P [id number] ####[facility] [address] [place] [address] 43331 Glenn Gudino M.D. [id number] PT/INRon 10-09-2023 INR Coag (PPP) [Relative time] 1.4 {INR} High 0.8-1.1 [facility] Comment on above: Order Comment: Durin g the induction phase of oral anticoagulation, the INR may not reflect the anticoagulation status of the patient. Therapeutic ranges for INR's are:Most clinical situations: INR 2.0-3.0Mechanical Prosthetic Valve: INR 2.5-3.5Critical: INR >5.0 Performed By: #### 4 [id number] ####[facility] [address] [place] [address] Glenn Gudino M.D. [id number] PT Coag (PPP) [Time] 17.3 s High 11.8-14.3 [facility] Comment on above: Order Comment: Durin g the induction phase of oral anticoagulation, the INR may not reflect the anticoagulation status of the patient. Therapeutic ranges for INR's are:Most clinical situations: INR 2.0-3.0Mechanical Prosthetic Valve: INR 2.5-3.5Critical: INR >5.0 Performed By: #### 4 [id number] ####[facility] [address] [place] [address] Glenn Gudino M.D. [id number] INR Coag (PPP) [Relative time] 1.3 {INR} High 0.8-1.1 [facility] Comment on above: Order Comment: Durin g the induction phase of oral anticoagulation, the INR may not reflect the anticoagulation status of the patient. Therapeutic ranges for INR's are: Most clinical situations: INR 2.0-3.0 Mechanical Prosthetic Valve: INR 2.5-3.5 Critical: INR >5.0 Performed By: #### 4 [id number] #### [place] [address] Jaron Méndez M.D. [id number] PT Coag (PPP) [Time] 16.3 s High 11.8-14.3 [facility] Comment on above: Order Comment: Durin g the induction phase of oral anticoagulation, the INR may not reflect the anticoagulation status of the patient. Therapeutic ranges for INR's are: Most clinical situations: INR 2.0-3.0 Mechanical Prosthetic Valve: INR 2.5-3.5 Critical: INR >5.0 Performed By: #### 4 [id number] #### [facility] [address] [place] [address] 310[address] Jaron Méndez M.D. [id number] T4, FREEon 10-09-2023 Free T4 [Mass/Vol] 1.4 ng/dL Normal 0.7-1.7 [facility] Comment on above: Performed By: #### 4 [id number] #### [facility] [address] [place] [address] 69417 Jaron Méndez M.D. [id number] TROPONINon 10-09-2023 BASELINE TROPONIN I NG/L 69 ng/L Off scale high <=59 [facility] Comment on above: Performed By: #### 4 [id number] #### [facility] [address] [place] [address] 54460 Jaron Méndez M.D. [id number] TROPONIN I INTERPRETATION Possible acute cardiac injury. [facility] Comment on above: Performed By: #### 4 [id number] #### [facility] [address] [place] [address]60 Jaron Méndez M.D. [id number] TSHon 10-09-2023 TSH Qn 8.26 m[IU]/L High 0.27-4.20 [facility] Comment on above: Performed By: #### 4 6613 #### [facility] [address] [place] [address] 37817 Jaron Méndez M.D. [id number] TYPE AND SCREENon 10-09-2023 TYPE AND SCREEN ABORH: O Positive AB SCREEN: Negative EXPIRATION DATE: 10/12/2023 23:59 EST [facility] Comment on above: Performed By: #### 4 [id number] ####PENDING SALE TO [facility] [address] [place] [address] Nurys Oneill MD [id number] [facility] TYPE AND SCREEN ABORH: O Positive AB SCREEN: Negative EXPIRATION DATE: 10/12/2023 23:59 EST [facility] XR CHEST PA/APon 10-09-2023 XR CHEST PA/AP [...] on MonOctober 09, 2023 4:48:26 PM EDT [facility] Comment on above: Order Comment: Jennifer retana the induction phase of oral anticoagulation, the INR may not reflect the anticoagulation status of the patient. Therapeutic ranges for INR's are: Most clinical situations: INR 2.0-3.0 Mechanical Prosthetic Valve: INR 2.5-3.5 Critical: INR >5.0 INR Coag (Bld) [Relative keron e]on 09-07-2023 Interpretation and review of laboratory results Abnormal [facility] POC INRon 09-07-2023 INR Coag (Bld) [Relative time] 2.8 {INR} Abnormal 0.8 - 1.1 [facility] INR Coag (Bld) [Relative keron e]on 08-10-2023 Interpretation and review of laboratory results Abnormal [facility] POC INRon 08-10-2023 INR Coag (Bld) [Relative time] 2.3 {INR} Abnormal 0.8 - 1.1 [facility] INR Coag (Bld) [Relative keron e]on 07-13-2023 Interpretation and review of laboratory results Abnormal [facility] POC INRon 07-13-2023 INR Coag (Bld) [Relative time] 2.5 {INR} Abnormal 0.8 - 1.1 [facility] XR LUMBAR SPINE 2-3 VIEWS (S [...] MonJul 04, 2023 4:04:30 PM EST Normal [facility] Comment on above: Order Comment: Injur y/Trauma or Illness?:Illness/Other How long have you had these symptoms (acute/chronic)?:Chronic Reason for exam?:low back pain History of cancer?:u Surgeries, chemotherapy, or radiation?:u Type of Exam?:Initial Additional signs and symptoms?:right leg weakness XR Lumbar spine 2 or 3 Views on 07-04-2023 L5-S1 disc disease. Workstation ID: [id number] [employer] EXAMINATION: XR LUMBAR SPINE 2-3 VIEWS (STANDARD) [...] loss of disc height at L5-S1. GE RIS Ying Sewell., MD - 07/04/2023 EXAMINATION: XR LUMBAR SPINE [...] IMPRESSION: L5-S1 disc disease. Workstation ID: [id number] [facility] Radiology Study observation (narrative) [facility] XR Lumbar spine 2 or 3 Views Ordered By: Ying Sewell on 07-04-2023 [facility] Work Phone: INR Coag (Bld) [Relative keron e]on 06-07-2023 Interpretation and review of laboratory results Abnormal [facility] POC INRon 06-07-2023 INR Coag (Bld) [Relative time] 2.1 {INR} Abnormal 0.8 - 1.1 [facility] INR Coag (Bld) [Relative keron e]on 05-03-2023 Interpretation and review of laboratory results Abnormal [facility] POC INRon 05-03-2023 INR Coag (Bld) [Relative time] 2.1 {INR} Abnormal 0.8 - 1.1 [facility] INR Coag (Bld) [Relative keron e]on 04-05-2023 Interpretation and review of laboratory results Abnormal [facility] POC INRon 04-05-2023 INR Coag (Bld) [Relative time] 2.6 {INR} Abnormal 0.8 - 1.1 [facility] INR Coag (Bld) [Relative keron e]on 03-08-2023 Interpretation and review of laboratory results Abnormal [facility] POC INRon 03-08-2023 INR Coag (Bld) [Relative time] 2.6 {INR} Abnormal 0.8 - 1.1 [facility] INR Coag (Bld) [Relative keron e]on 02-15-2023 Interpretation and review of laboratory results Abnormal [facility] POC INRon 02-15-2023 INR Coag (Bld) [Relative time] 2.8 {INR} Abnormal 0.8 - 1.1 [facility] MM SCREENING JOSE BILATERALo n 02-13-2023 [...] sent to the patient regarding the results. [facility], along with the National [employer], the [employer] [employer], and [facility], recommend annual screening mammograms for women age 40 and older. Workstation ID: [id number] Dictated by: ALCIDES IGLESIAS on MonFeb 13, 2023 1:22:32 PM EDT Transcribed by: ALCIDES IGLESIAS on MonFeb 13, 2023 1:22:32 PM EDT Finalized by: ALCIDES IGLESIAS on MonFeb 13, 2023 1:22:32 PM EDT Normal [facility] INR Coag (Bld) [Relative keron e]on 02-01-2023 Interpretation and review of laboratory results Abnormal [facility] POC INRon 02-01-2023 INR Coag (Bld) [Relative time] 2.9 {INR} Abnormal 0.8 - 1.1 [facility] Comprehensive metabolic 2000 panelon 01-25-2023 Albumin [Mass/Vol] 2.5 g/dL Low 3.2 - 5.2 g/dL [facility] ALP [Catalytic activity/Vol] 85 U/L 40 - 150 U/L [facility] ALT [Catalytic activity/Vol] 65 U/L 14 - 65 U/L [facility] Anion gap [Moles/Vol] 9 mmol/L Low 10 - 2 0 mmol/L [facility] AST [Catalytic activity/Vol] 79 U/L High 0-35 U/L [facility] Bilirubin [Mass/Vol] 0.3 mg/dL 0.0 - 1 .3 mg/dL [facility] Calcium [Mass/Vol] 8.6 mg/dL 8.4 - 10. 2 mg/dL [facility] Chloride [Moles/Vol] 104 mmol/L 98 - 10 8 mmol/L [facility] Creatinine [Mass/Vol] 0.78 mg/dL 0.40 - 1.10 mg/dL [facility] GFR/1.73 sq M.predicted CKD-EPI (S/P/Bld) [Vol rate/Area] 87 - PINF [facility] Comment on above: Estimated GFR was ca lculated using the 2020 CKD-EPI creatinine equation. Glucose [Mass/Vol] 92 mg/dL 65 - 99 mg/dL [facility] HCO3 [Moles/Vol] 24 mmol/L 21 - 32 mmol/L [facility] Potassium [Moles/Vol] 4.3 mmol/L 3.5 - 5.1 mmol/L [facility] Protein [Mass/Vol] 7.7 g/dL 6.0 - 8.0 g/dL [facility] Sodium [Moles/Vol] 133 mmol/L Low 135 - 145 mmol/L [facility] Urea nitrogen [Mass/Vol] 13 mg/dL 8 - 25 mg/dL [facility] Urea nitrogen/Creatinine [Mass ratio] 16.7 mg/mg 10.0 - 20.0 [facility] has implemented the eGFR calculation approach that does not have a coefficient for race that conforms to the NKF-ASN Task Force Recommendations. [facility] Free T4 [Mass/Vol]on 023 Interpretation and review of laboratory results Normal [facility] Lipid 1996 panelon 3 Cholesterol [Mass/Vol] 99 mg/dL Low 100 - 199 mg/dL [facility] Comment on above: National Cholesterol Education Program Guidelines: Cholesterol Desirable: <200 mg/dL Borderline High: 200-239 mg/dL High: greater than or equal to 240 mg/dL Cholesterol in HDL [Mass/Vol] 29 mg/dL Low 40 - 59 mg/dL [facility] Comment on above: National Cholesterol Education Program Guidelines: HDL Cholesterol Low: <40 mg/dL Near Optimal: 40-59 mg/dL High: greater than or equal to 60 mg/dL Cholesterol in LDL [Mass/Vol] 39 mg/dL 10 - 130 mg/dL [facility] Comment on above: National Cholesterol Education Program Guidelines: LDL Cholesterol Optimal: <100 mg/dL Near Optimal/above Optimal: 100-129 mg/dL Borderline High: 130-159 mg/dL High: 160-189 mg/dL Very High: greater than or equal to 190 mg/dL Cholesterol non HDL [Mass/Vol] 70 mg/dL [facility] Comment on above: National Cholesterol Education Program Guidelines: NON HDL Cholesterol Desirable: <130 mg/dL Borderline High: 130-159 mg/dL High: 160-189 mg/dL Very High: > or = 190 mg/dL Cholesterol.total/Chol esterol in HDL [Mass ratio] 3.4 {ratio} ratio [facility] Comment on above: Female Cholesterol/H DL Ratio: Average risk: 4.4 1/2 average risk: 3.3 2 x average risk: 7.1 Triglyceride [Mass/Vol] 156 mg/dL High 30 - 150 mg/dL [facility] Comment on above: National Cholesterol Education Program Guidelines: Triglyceride Normal: <150 mg/dL Borderline High: 150-199 mg/dL High: 200-499 mg/dL Very High: greater than or equal to 500 mg/dL No Panel Informationon 01-25 Interpretation and review of laboratory results Abnormal [facility] T4, Freeon 01-25-2023 Free T4 [Mass/Vol] 1.2 ng/dL 0.7 - 1.7 ng/dL [facility] TSH DL <= 0.005 mIU/L Qnon 0 01-25-2023 TSH Qn 15.80 m[IU]/L High [facility] INR Coag (Bld) [Relative keron e]on 01-16-2023 Interpretation and review of laboratory results Abnormal [facility] POC INRon 01-16-2023 INR Coag (Bld) [Relative time] 2.6 {INR} Abnormal 0.8 - 1.1 [facility] INR Coag (Bld) [Relative keron e]on 01-09-2023 Interpretation and review of laboratory results Abnormal [facility] POC INRon 01-09-2023 INR Coag (Bld) [Relative time] 1.6 {INR} Abnormal 0.8 - 1.1 [facility] INR Coag (Bld) [Relative keron e]on 01-02-2023 Interpretation and review of laboratory results Abnormal [facility] POC INRon 01-02-2023 INR Coag (Bld) [Relative time] 1.4 {INR} Abnormal 0.8 - 1.1 [facility] INR Coag (Bld) [Relative keron e]on 12-26-2022 Interpretation and review of laboratory results Abnormal [facility] POC INRon 12-26-2022 INR Coag (Bld) [Relative time] 1.9 {INR} Abnormal 0.8 - 1.1 [facility] INR Coag (Bld) [Relative keron e]on 12-19-2022 Interpretation and review of laboratory results Abnormal [facility] POC INRon 12-19-2022 INR Coag (Bld) [Relative time] 1.3 {INR} Abnormal 0.8 - 1.1 [facility] Comprehensive metabolic 2000 panelon 12-12-2022 Albumin [Mass/Vol] 2.5 g/dL Low 3.2 - 5.2 g/dL [facility] ALP [Catalytic activity/Vol] 78 U/L 40 - 150 U/L [facility] ALT [Catalytic activity/Vol] 69 U/L High 14 - 65 U/L [facility] Anion gap [Moles/Vol] 8 mmol/L Low 10 - 2 0 mmol/L [facility] AST [Catalytic activity/Vol] 71 U/L High 0 - 45 U/L [facility] Bilirubin [Mass/Vol] 0.4 mg/dL 0.0 - 1 .3 mg/dL [facility] Calcium [Mass/Vol] 8.5 mg/dL 8.4 - 10. 2 mg/dL [facility] Chloride [Moles/Vol] 106 mmol/L 98 - 10 8 mmol/L [facility] Creatinine [Mass/Vol] 0.77 mg/dL 0.40 - 1.10 mg/dL [facility] GFR/1.73 sq M.predicted CKD-EPI (S/P/Bld) [Vol rate/Area] 88 - PINF [facility] Comment on above: Estimated GFR was ca lculated using the 2020 CKD-EPI creatinine equation. Glucose [Mass/Vol] 90 mg/dL 65 - 99 mg/dL [facility] HCO3 [Moles/Vol] 26 mmol/L 21 - 32 mmol/L [facility] Potassium [Moles/Vol] 4.2 mmol/L 3.5 - 5.1 mmol/L [facility] Protein [Mass/Vol] 7.8 g/dL 6.0 - 8.0 g/dL [facility] Sodium [Moles/Vol] 136 mmol/L 135 - 145 mmol/L [facility] Urea nitrogen [Mass/Vol] 12 mg/dL 8 - 25 mg/dL [facility] Urea nitrogen/Creatinine [Mass ratio] 15.6 mg/mg 10.0 - 20.0 [facility] has implemented the eGFR calculation approach that does not have a coefficient for race that conforms to the NKF-ASN Task Force Recommendations. [facility] D-Dimer, QuantitativeOrdered By: Lena Berman on 12-12-2022 Fibrin D-dimer FEU (PPP) [Mass/Vol] 2.17 [facility] Interpretation and review of laboratory results Abnormal [facility] A D-dimer concentrat ion of <0.5 micrograms per milliliter FEU is considered a low probability for pulmonary embolus (PE) and deep venous thrombosis (DVT). Results of this test should always be interpreted in conjunction with the patient's medical history,clinical presentation, and other findings. Clinical diagnosis should not be based on the results of the D-dimer alone. [facility] LDHon 12-12-2022 LDH Lactate to pyruvate reaction [Catalytic activity/Vol] 389 U/L High 100 - 250 U/L [facility] No Panel Informationon 12-12 Interpretation and review of laboratory results Abnormal [facility] INR Coag (PPP) [Relative keron e]on 10-25-2022 Interpretation and review of laboratory results Abnormal [facility] PT Coag (PPP) [Time] 16.7 s [facility] During the induction phase of oral anticoagulation, the INR may not reflect the anticoagulation status of the patient. Therapeutic ranges for INR's are: Most clinical situations: INR 2.0-3.0 Mechanical Prosthetic Valve: INR 2.5-3.5 Critical: INR >5.0 [facility] Protime-INRon 10-25-2022 INR Coag (PPP) [Relative time] 1.4 {INR} High 0.8 - 1.1 [facility] APTT Heparin CoverageOrdered By: Carmina Nino on 06-11-2022 aPTT Coag (Bld) [Time] 64 s High [facility] Interpretation and review of laboratory results Abnormal [facility] Therapeutic range fo r APTT's is 68 - 104 seconds [facility] Basic metabolic 2000 panelon 06-11-2022 Anion gap [Moles/Vol] 10 mmol/L 10 - 2 0 mmol/L [facility] Calcium [Mass/Vol] 8.3 mg/dL Low 8.4 - 10. 2 mg/dL [facility] Chloride [Moles/Vol] 111 mmol/L High 98 - 10 8 mmol/L [facility] Creatinine [Mass/Vol] 0.79 mg/dL 0.40 - 1.10 mg/dL [facility] GFR/1.73 sq M.predicted CKD-EPI (S/P/Bld) [Vol rate/Area] 86 - PINF [facility] Comment on above: Estimated GFR was ca lculated using the 2020 CKD-EPI creatinine equation. Glucose [Mass/Vol] 92 mg/dL 65 - 99 mg/dL [facility] HCO3 [Moles/Vol] 24 mmol/L 21 - 32 mmol/L [facility] Interpretation and review of laboratory results Abnormal [facility] Potassium [Moles/Vol] 4.0 mmol/L 3.5 - 5.1 mmol/L [facility] Sodium [Moles/Vol] 141 mmol/L 135 - 145 mmol/L [facility] Urea nitrogen [Mass/Vol] 13 mg/dL 8 - 25 mg/dL [facility] Urea nitrogen/Creatinine [Mass ratio] 16.5 mg/mg 10.0 - 20.0 [facility] has implemented the eGFR calculation approach that does not have a coefficient for race that conforms to the NKF-ASN Task Force Recommendations. [facility] CBC Auto Differentialon 05-29 Basophils (Bld) [#/Vol] 0.04 10*3/uL [facility] Basophils/100 WBC (Bld) 0.6 % [facility] Eosinophils (Bld) [#/Vol] 0.12 10*3/uL [facility] Eosinophils/100 WBC (Bld) 1.8 % [facility] Erythrocyte distribution width (RBC) [Entitic vol] 16.7 % High 11.6 - 14.8 % [facility] Hematocrit (Bld) [Volume fraction] 37.1 % 36.0 - 46.0 % [facility] Hemoglobin (Bld) [Mass/Vol] 12.0 g/dL 12.0 - 16.0 g/dL [facility] Immature granulocytes (Bld) [#/Vol] 0.07 10*3/uL [facility] Immature granulocytes/100 WBC (Bld) 1.00 % [facility] Comment on above: The IG parameter is the percentage of metamyelocytes, myelocytes and promyelocytes. An immature granulocyte count (IG) of 1% or more suggests the possibility of infection, an IG count of 3% is very likely related to an infection. Interpretation and review of laboratory results Abnormal [facility] Lymphocytes (Bld) [#/Vol] 1.72 10*3/uL [facility] Lymphocytes/100 WBC (Bld) 25.3 % [facility] MCH (RBC) [Entitic mass] 28.5 pg 26.0 - 34.0 pg [facility] MCHC (RBC) [Mass/Vol] 32.3 g/dL 31.0 - 37.0 g/dL [facility] MCV (RBC) [Entitic vol] 88.1 fL 80.0 - 100.0 fL [facility] Monocytes (Bld) [#/Vol] 0.69 10*3/uL [facility] Monocytes/100 WBC (Bld) 10.2 % [facility] Neutrophils (Bld) [#/Vol] 4.15 10*3/uL [facility] Neutrophils/100 WBC (Bld) 61.1 % [facility] Nucleated RBC (Bld) [#/Vol] 0.00 10*3/uL [facility] Nucleated RBC/100 WBC (Bld) [Ratio] 0.0 % [facility] Platelet mean volume (Bld) [Entitic vol] 9.5 fL 9.4 - 12.4 fL [facility] Platelets (Bld) [#/Vol] 218 10*3/uL [facility] RBC (Bld) [#/Vol] 4.21 10*6/uL [facility] WBC (Bld) [#/Vol] 6.79 10*3/uL [facility] APTT Heparin CoverageOrdered By: Claritza Swann on 06-10-2022 aPTT Coag (Bld) [Time] 107 s High [facility] Interpretation and review of laboratory results Abnormal [facility] Therapeutic range fo r APTT's is 68 - 104 seconds [facility] Basic metabolic 1998 panelon 06-10-2022 Anion gap [Moles/Vol] 14 mmol/L 10 - 2 0 mmol/L [facility] Chloride [Moles/Vol] 108 mmol/L 98 - 10 8 mmol/L [facility] Creatinine [Mass/Vol] 1.04 mg/dL 0.40 - 1.10 mg/dL [facility] GFR/1.73 sq M.predicted CKD-EPI (S/P/Bld) [Vol rate/Area] 62 - PINF [facility] Comment on above: Estimated GFR was ca lculated using the 2020 CKD-EPI creatinine equation. Glucose [Mass/Vol] 177 mg/dL High 65 - 99 mg/dL [facility] HCO3 [Moles/Vol] 23 mmol/L 21 - 32 mmol/L [facility] Interpretation and review of laboratory results Abnormal [facility] Potassium [Moles/Vol] 4.5 mmol/L 3.5 - 5.1 mmol/L [facility] Comment on above: moderate hemolysis, result may be falsely increased. Sodium [Moles/Vol] 140 mmol/L 135 - 145 mmol/L [facility] Urea nitrogen [Mass/Vol] 14 mg/dL 8 - 25 mg/dL [facility] Urea nitrogen/Creatinine [Mass ratio] 13.5 mg/mg 10.0 - 20.0 [facility] has implemented the eGFR calculation approach that does not have a coefficient for race that conforms to the NKF-ASN Task Force Recommendations. [facility] CBC Auto Differentialon 05-29 Basophils (Bld) [#/Vol] 0.05 10*3/uL [facility] Basophils/100 WBC (Bld) 0.6 % [facility] Eosinophils (Bld) [#/Vol] 0.08 10*3/uL [facility] Eosinophils/100 WBC (Bld) 1.0 % [facility] Erythrocyte distribution width (RBC) [Entitic vol] 16.6 % High 11.6 - 14.8 % [facility] Hematocrit (Bld) [Volume fraction] 39.1 % 36.0 - 46.0 % [facility] Hemoglobin (Bld) [Mass/Vol] 12.4 g/dL 12.0 - 16.0 g/dL [facility] Immature granulocytes (Bld) [#/Vol] 0.06 10*3/uL [facility] Immature granulocytes/100 WBC (Bld) 0.70 % [facility] Comment on above: The IG parameter is the percentage of metamyelocytes, myelocytes and promyelocytes. An immature granulocyte count (IG) of 1% or more suggests the possibility of infection, an IG count of 3% is very likely related to an infection. Interpretation and review of laboratory results Abnormal [facility] Lymphocytes (Bld) [#/Vol] 1.07 10*3/uL [facility] Lymphocytes/100 WBC (Bld) 13.2 % [facility] MCH (RBC) [Entitic mass] 28.4 pg 26.0 - 34.0 pg [facility] MCHC (RBC) [Mass/Vol] 31.7 g/dL 31.0 - 37.0 g/dL [facility] MCV (RBC) [Entitic vol] 89.7 fL 80.0 - 100.0 fL [facility] Monocytes (Bld) [#/Vol] 0.74 10*3/uL [facility] Monocytes/100 WBC (Bld) 9.1 % [facility] Neutrophils (Bld) [#/Vol] 6.09 10*3/uL [facility] Neutrophils/100 WBC (Bld) 75.4 % [facility] Nucleated RBC (Bld) [#/Vol] 0.00 10*3/uL [facility] Nucleated RBC/100 WBC (Bld) [Ratio] 0.0 % [facility] Platelet mean volume (Bld) [Entitic vol] 9.9 fL 9.4 - 12.4 fL [facility] Platelets (Bld) [#/Vol] 248 10*3/uL [facility] RBC (Bld) [#/Vol] 4.36 10*6/uL [facility] WBC (Bld) [#/Vol] 8.09 10*3/uL [facility] CBC panel Auto (Bld)on 06-10 Erythrocyte distribution width (RBC) [Entitic vol] 16.6 % High 11.6 - 14.8 % [facility] Hematocrit (Bld) [Volume fraction] 37.5 % 36.0 - 46.0 % [facility] Hemoglobin (Bld) [Mass/Vol] 12.0 g/dL 12.0 - 16.0 g/dL [facility] Interpretation and review of laboratory results Abnormal [facility] MCH (RBC) [Entitic mass] 28.6 pg 26.0 - 34.0 pg [facility] MCHC (RBC) [Mass/Vol] 32.0 g/dL 31.0 - 37.0 g/dL [facility] MCV (RBC) [Entitic vol] 89.3 fL 80.0 - 100.0 fL [facility] Nucleated RBC (Bld) [#/Vol] 0.00 10*3/uL [facility] Nucleated RBC/100 WBC (Bld) [Ratio] 0.0 % [facility] Platelet mean volume (Bld) [Entitic vol] 9.3 fL Low 9.4 - 12.4 fL [facility] Platelets (Bld) [#/Vol] 220 10*3/uL [facility] RBC (Bld) [#/Vol] 4.20 10*6/uL [facility] WBC (Bld) [#/Vol] 7.61 10*3/uL [facility] CT Head Or Brain Without Con traston 06-10-2022 No intracranial hemorrhage or mass effect. ST/[facility] Workstation ID: [id number] Buyt.In [facility] EXAMINATION: CT HEAD OR BRAIN WITHOUT CONTRAST [...] aerated. Mastoids are clear. Calvarium is unremarkable. Soraa Albaro Faria, DO - 06/10/2022 EXAMINATION: CT [...] or mass effect. ST/ads Workstation ID: [id number] [facility] Radiology Study observation (narrative) [facility] CT Head Or Brain Without Con trastOrdered By: Albaro Faria on 06-10-2022 [facility] Work Phone: D-Dimer, QuantitativeOrdered By: Lukasz Bob on 06-10-2022 Fibrin D-dimer FEU (PPP) [Mass/Vol] 1.60 High [facility] Interpretation and review of laboratory results Abnormal [facility] A D-dimer concentrat ion of <0.5 micrograms per milliliter FEU is considered a low probability for pulmonary embolus (PE) and deep venous thrombosis (DVT). Results of this test should always be interpreted in conjunction with the patient's medical history,clinical presentation, and other findings. Clinical diagnosis should not be based on the results of the D-dimer alone. [facility] EKGon 06-10-2022 [facility] INR Coag (PPP) [Relative keron e]on 06-10-2022 Interpretation and review of laboratory results Normal [facility] PT Coag (PPP) [Time] 14.1 s [facility] During the induction phase of oral anticoagulation, the INR may not reflect the anticoagulation status of the patient. Therapeutic ranges for INR's are: Most clinical situations: INR 2.0-3.0 Mechanical Prosthetic Valve: INR 2.5-3.5 Critical: INR >5.0 [facility] Light Blue Topon 06-10-2022 Extra Tube Hold for add-ons. [facility] Comment on above: Auto resulted. [facility] NT Pro BNPon 06-10-2022 Natriuretic peptide.B prohormone N-Terminal [Mass/Vol] 294 pg/mL 0 - 300 pg/mL [facility] Natriuretic peptide.B prohor destinee N-Terminal [Mass/Vol]on 06-10-2022 Pride Study Cut-offs Rule In: < /= 50 Years >450 pg/mL 51 Years - 75 Years >900 pg/mL 76 Years - 99 Years >1800 pg/mL Rule Out: All patients <300 pg/mL [facility] No Panel Informationon 06-10 Extra Tube Hold for add-ons. [facility] Comment on above: Auto resulted. [facility] Interpretation and review of laboratory results Normal [facility] PT/INRon 06-10-2022 INR Coag (PPP) [Relative time] 1.1 {INR} 0.8 - 1.1 [facility] TSH DL <= 0.005 mIU/L Qnon 0 06-10-2022 TSH Qn 1.98 m[IU]/L [facility] Troponinon 06-10-2022 Troponin I 15 ng/L NINF - 59 ng/L [facility] Troponin I Interpretation Normal [facility] Ultrasound Duplex Venous Arm LEFTon 06-10-2022 Patient Info Name: SCOTT OBREGON Age: 61 years : 1960 Gender: Female Exam Date: 06/10/2022 9:40 AM Patient Status: Emergency Sound Printer: Kenzie Irwin RVT Referring Physician: CECILIA Babin; Indications R60.9 - Edema, unspecified Procedure Description 42275 Duplex examination using B-mode, color and spectral [...] MICHAEL Carcamo DO on 06/10/2022 10:53 AM [facility] SYNAPSE Philly Philip III, DO - 06/10/2022 Patient Info Name: SCOTT OBREGON Age: 61 years : 1960 Gender: Female Exam Date: 06/10/2022 9:40 AM Patient Status: Emergency Sound Printer: Kenzie Irwin RVT Referring Physician: CECILIA Babin; Indications R60.9 - Edema, unspecified Procedure Description 58064 Duplex examination using B-mode, color and spectral [...] MICHAEL Carcamo DO on 06/10/2022 10:53 AM [facility] Radiology Study observation (narrative) [facility] Ultrasound Duplex Venous Arm LEFTOrdered By: Philly Blake on 06-10-2022 [facility] Work Phone: XR Chest 1 Viewon 06-10-2022 No acute heart or lung disease identified. Workstation ID: [id number] Soraa EXAMINATION: XR CHEST PA/AP 06/10/2022 10:33 am [...] infiltrates. Grossly no bony abnormality is appreciated. Soraa Aclides Garza MD - 06/10/2022 EXAMINATION: XR CHEST [...] or lung disease identified. Workstation ID: [id number] [facility] Radiology Study observation (narrative) [facility] XR Chest 1 ViewOrdered By: Kirk Garza on 06-10-2022 [facility] Work Phone: XR Foot Left 3+ Views (Stand ramy)on 06-17-2021 No fractures no dislocations no subluxations. No tumors appreciated. GE RIS [facility] Radiology Study observation (narrative) [facility] Basic Metabolic Panelon 08-28 Anion gap molar conc 10 mmol/L 10 - 20 mmol/L [facility] Calcium mass conc 8.3 mg/dL Low 8.4 - 10.2 mg/dL [facility] Chloride molar conc 111 mmol/L High 98 - 108 mmol/L [facility] Creatinine mass conc 0.99 mg/dL 0.4 - 1 .1 mg/dL [facility] GFR/1.73 sq M predicted among non-blacks MDRD vol rate/area (S/P/Bld) The eGFR should be used for monitoring renal function only and not for medication dosing. [facility] GFR/1.73 sq M.predicted CKD-EPI vol rate/area (S/P/Bld) 64 >=60 mL/min/1.7 3 m2 [facility] Glucose mass conc 169 mg/dL High 65 - 99 mg/dL [facility] HCO3 molar conc 23 mmol/L 21 - 32 mmol/L [facility] Interpretation and review of laboratory results Abnormal [facility] Potassium molar conc 4.4 mmol/L 3.5 - 5 .1 mmol/L [facility] Sodium molar conc 140 mmol/L 135 - 145 mmol/L [facility] Urea nitrogen mass conc 12 mg/dL 8 - 25 mg/dL [facility] Urea nitrogen/Creatinine mass ratio 12.1 mg/mg [facility] CBC WITH AUTO DIFFERENTIALon 09-14-2018 Basophils #/vol (Bld) 0.04 10*3/uL [facility] Basophils/100 WBC (Bld) 0.3 % [facility] Eosinophils #/vol (Bld) 0.14 10*3/uL [facility] Eosinophils/100 WBC (Bld) 1.2 % [facility] Erythrocyte distribution width Entitic volume (RBC) 13.0 % 11.6 - 14.8 % [facility] Hematocrit Volume Fraction (Bld) 41.5 % 36 - 46 % [facility] Hemoglobin mass conc (Bld) 13.9 g/dL 12 - 16 g/dL [facility] Immature granulocytes #/vol (Bld) 0.04 10*3/uL [facility] Immature granulocytes/100 WBC (Bld) 0.30 % [facility] Comment on above: The IG parameter is the percentage of metamyelocytes, myelocytes, and promyelocytes. Interpretation and review of laboratory results Abnormal [facility] Lymphocytes #/vol (Bld) 3.32 10*3/uL [facility] Lymphocytes/100 WBC (Bld) 27.5 % [facility] MCH Entitic mass (RBC) 29.0 pg 26 - 34 pg [facility] MCHC mass conc (RBC) 33.5 g/dL 31 - 37 g/dL [facility] MCV Entitic volume (RBC) 86.6 fL 80 - 100 fL [facility] Monocytes #/vol (Bld) 0.80 10*3/uL [facility] Monocytes/100 WBC (Bld) 6.6 % [facility] Neutrophils #/vol (Bld) 7.75 10*3/uL High [facility] Neutrophils/100 WBC (Bld) 64.1 % [facility] Platelet mean volume Entitic volume (Bld) 9.4 fL 9 - 15.5 fL [facility] Platelets #/vol (Bld) 293 10*3/uL [facility] RBC #/vol (Bld) 4.79 10*6/uL [facility] W[facility] #/vol (Bld) 12.09 10*3/uL High [facility] alth CT KIDNEY STONEon 09-14-2018 EXAMINATION: CT [...] of L5-S1. No bony lesions are noted. [facility], Rad In Fu ji Speechq - [...] degenerative changes as noted. Workstation ID: [id number] [facility] 1. Findings consiste nt with moderate to prominent appendicitis. The appendix is enlarged with surrounding inflammation. No sign of appendicolith, abscess formation or free air. 2. Additional chronic and degenerative changes as noted. Workstation ID: [id number] [facility] Chem 7on 09-14-2018 Anion gap molar conc 16 mmol/L 10 - 20 mmol/L [facility] Chloride molar conc 105 mmol/L 98 - 108 mmol/L [facility] Creatinine mass conc 1.20 mg/dL High 0.4 - 1 .1 mg/dL [facility] GFR/1.73 sq M predicted among non-blacks MDRD vol rate/area (S/P/Bld) The eGFR should be used for monitoring renal function only and not for medication dosing. [facility] GFR/1.73 sq M.predicted CKD-EPI vol rate/area (S/P/Bld) 51 Low >=60 mL/min/1.7 3 m2 [facility] Glucose mass conc 201 mg/dL High 65 - 99 mg/dL [facility] HCO3 molar conc 23 mmol/L 21 - 32 mmol/L [facility] Interpretation and review of laboratory results Abnormal [facility] Potassium molar conc 3.5 mmol/L 3.5 - 5 .1 mmol/L [facility] Sodium molar conc 140 mmol/L 135 - 145 mmol/L [facility] Urea nitrogen mass conc 12 mg/dL 8 - 25 mg/dL [facility] Urea nitrogen/Creatinine mass ratio 10.0 mg/mg [facility] URINALYSISon 09-14-2018 Bacteria Auto Ql (U) None Seen None Se en /hpf [facility] Bilirubin Ql (U) Negative Negative [facility] th Clarity Refractometry automated Nom (U) Clear Clear [facility] Color Nom (U) Yellow Colorless, Yellow [facility] Epithelial cells.squamous Auto #/area (Urine sed) <1 [facility] Glucose Automated test strip mass conc (U) Negative Negative mg/dL [facility] Hemoglobin Automated test strip Ql (U) Negative Negative [facility] Interpretation and review of laboratory results Normal [facility] Ketones mass conc (U) Negative Negati ve mg/dL [facility] Leukocyte esterase Automated test strip Ql (U) Negative Negative [facility] Nitrite Automated test strip Ql (U) Negative Negative [facility] pH (U) 5.0 [pH] [facility] Protein mass conc (U) Negative Negati ve mg/dL [facility] Specific gravity Relative Density (U) 1.006 [facility] Urobilinogen mass conc (U) <2.0 <2.0 mg/dL [facility] WBC Auto #/area (Urine sed) <1 [facility] Microscopic examinat ion is performed on all urinalysis samples and only positive findings are reported. The test for blood on the chemical analytic portion of urinalysis may also be positive due to hemoglobinuria and myoglobinuria and if red blood cells are present they are quantified by microscopic examination. [facility] Hepatitis C Antibodyon 09-28 Hepatitis C Antibody Negative Normal Negative [facility] Comment on above: Result Comment: Test performed using Adele ANNALISE immunoassay systemTest Performed by [facility] [id number] [place] [address] Performed By: #### T SH, LIPID ####Unless otherwise noted, all testing performed by [address] [phone]: [id number] Director: Jaron Méndez M.D.#### HEPCABS ####Unless otherwise noted, all testing performed by [address] [phone]: [id number] Director: Jaron Méndez M.D. Lipid Panelon 09-28-2017 Cholesterol 223 mg/dL High 100-199 [facility] Comment on above: Performed By: #### T SH, LIPID ####Unless otherwise noted, all testing performed by [address] [phone]: [id number] Director: Jaron Méndez M.D.#### HEPCABS ####Unless otherwise noted, all testing performed by [address] [phone]: [id number] Director: Jaron Méndez M.D. Cholesterol in VLDL mass conc 24 mg/dL Normal 5-40 [facility] Comment on above: Performed By: #### T SH, LIPID ####Unless otherwise noted, all testing performed by [address] [phone]: [id number] Director: Jaron Méndez M.D.#### HEPCABS ####Unless otherwise noted, all testing performed by [address] [phone]: [id number] Director: Jaron Méndez M.D. Cholesterol to HDL Ratio 5.2 {ratio} High 3.2-4.5 [facility] Comment on above: Result Comment: Funmilayo she[place] Coronary Heart Disease Risk Factor (CHDRF):Average risk= 4.41/2 Average risk= 3.32 times Average risk= 7.1 Performed By: #### T SH, LIPID ####Unless otherwise noted, all testing performed by [address] [phone]: [id number] Director: Jaron Méndez M.D.#### HEPCABS ####Unless otherwise noted, all testing performed by [address] [phone]: [id number] Director: Jaron Méndez M.D. HDL Cholesterol 43 mg/dL Normal 40-59 [facility] Comment on above: Performed By: #### T SH, LIPID ####Unless otherwise noted, all testing performed by [address] [phone]: [id number] Director: Jaron Méndez M.D.#### HEPCABS ####Unless otherwise noted, all testing performed by [address] [phone]: [id number] Director: Jaron Méndez M.D. Interpretation and review of laboratory results Abnormal Invalid Interpretation Code [facility] LDL Cholesterol 156 mg/dL High 10 - 150 mg/dL [facility] LDL Cholesterol 156 mg/dL High 10-150 [facility] Comment on above: Performed By: #### T SH, LIPID ####Unless otherwise noted, all testing performed by [address] [phone]: [id number] Director: Jaron Méndez M.D.#### HEPCABS ####Unless otherwise noted, all testing performed by [address] [phone]: [id number] Director: Jaron Méndez M.D. Triglyceride 118 mg/dL Normal 30-150 [facility] Comment on above: Performed By: #### T SH, LIPID ####Unless otherwise noted, all testing performed by [address] [phone]: [id number] Director: Jaron Méndez M.D.#### HEPCABS ####Unless otherwise noted, all testing performed by [address] [phone]: [id number] Director: Jaron Méndez M.D. VLDL 24 mg/dL Invalid Interpretation Code 5 - 40 mg/dL [facility] TSHon 09-28-2017 Thyroid stimulating hormone (TSH) 2.63 uIU/mL Invalid Interpretation Code 0.32 - 5.00 [facility] Thyroid stimulating hormone (TSH) 2.63 uIU/mL Normal 0.32-5.00 [facility] Comment on above: Result Comment: Samp les from patients routinely receiving high dose biotin therapy(100-300 mg/day) may show falsely decreased results. Please correlateclinically. Performed By: #### T SH, LIPID ####Unless otherwise noted, all testing performed by [address] [phone]: [id number] Director: Jaron Méndez M.D.#### HEPCABS ####Unless otherwise noted, all testing performed by [address] [phone]: [id number] Director: Jaron Méndez M.D. XR Lumbar Spine 2-3 Views (S ev)on 09-05-2017 INR in blood by coagulation X-ray [...] findings otherwise Invalid Interpretation Code FUJI SYNAPSE [facility] Vital Signs Date Time Vital Sign Value Performing Clinician Facility 09-15-2024 07:00-0400 Body temperature 98.6 [degF] Dr. Ethan Rodriguez MD Work Phone: [facility] 09-15-2024 07:00-0400 Diastolic blood pressure 85 mm[Hg] Dr. Ethan Rodriguez MD Work Phone: 4(479)407-494588 [place] [address] 09-15-2024 07:00-0400 Heart rate 100 /min Dr. Ethan Rodriguez MD Work Phone: [facility] 09-15-2024 07:00-0400 Inhaled oxygen flow rate 4 L/min Dr. Ethan Rodriguez MD Work Phone: [facility] 09-15-2024 07:00-0400 Respiratory rate 20 /min Dr. Ethan Rodriguez MD Work Phone: [facility] 09-15-2024 07:00-0400 SaO2% (BldA) [Mass fraction] 96 % Dr. Ethan Rodriguez MD Work Phone: [facility] 09-15-2024 07:00-0400 Systolic blood pressure 145 mm[Hg] Dr. Ethan Rodriguez MD Work Phone: [facility] 09-15-2024 04:35-0400 Inhaled oxygen concentration 10 % Dr. Ethan Rodriguez MD Work Phone: [facility] 09-15-2024 04:23-0400 Body height 182.[address] Ethan Rodriguez MD Work Phone: [facility] 09-15-2024 04:23-0400 Body mass index (BMI) [Ratio] 16.5 kg/m2 Dr. Ethan Rodriguez MD Work Phone: [facility] 09-15-2024 04:23-0400 Body weight 55.[address] Ethan Rodriguez MD Work Phone: [facility] 08-31-2024 16:15-0400 Inhaled oxygen flow rate 3 L/min Dr. Ethan Rodriguez MD Work Phone: 0(669)595-478588 [place] [address] 08-31-2024 16:15-0400 SaO2% (BldA) [Mass fraction] 96 % Dr. Ethan Rodriguez MD Work Phone: 2(734)853-656388 [place] [address] 08-31-2024 14:00-0400 Body temperature 97 [degF] Dr. Ethan Rodriguez MD Work Phone: 4(569)946-031929 [address] 08-31-2024 14:00-0400 Diastolic blood pressure 71 mm[Hg] Dr. Ethan Rodriguez MD Work Phone: 8(508)285-693288 [place] [address] 08-31-2024 14:00-0400 Heart rate 70 /min Dr. Ethan Rodriguez MD Work Phone: 0(439)624-028888 [place] [address] 08-31-2024 14:00-0400 Respiratory rate 16 /min Dr. Ethan Rodriguez MD Work Phone: [facility] 08-31-2024 14:00-0400 Systolic blood pressure 126 mm[Hg] Dr. Ethan Rodriguez MD Work Phone: [facility] 08-31-2024 09:38-0400 Body weight 54.[address] Ethan Rodriguez MD Work Phone: [facility] 08-17-2024 09:46-0400 Body temperature 97.8 [degF] Dr. Ethan Rodriguez MD Work Phone: [facility] 08-17-2024 09:46-0400 Diastolic blood pressure 96 mm[Hg] Dr. Ethan Rodriguez MD Work Phone: 6(554)770-129488 [place] [address] 08-17-2024 09:46-0400 Heart rate 107 /min Dr. Ethan Rodriguez MD Work Phone: 5(830)888-775188 [place] [address] 08-17-2024 09:46-0400 Inhaled oxygen flow rate 2 L/min Dr. Ethan Rodriguez MD Work Phone: 2(215)738-489244 [place] [address] 08-17-2024 09:46-0400 Respiratory rate 18 /min Dr. Ethan Rodriguez MD Work Phone: 7(682)295-156844 [place] [address] 08-17-2024 09:46-0400 SaO2% (BldA) [Mass fraction] 97 % Dr. Ethan Rodriguez MD Work Phone: 5(689)074-628344 [place] [address] 08-17-2024 09:46-0400 Systolic blood pressure 162 mm[Hg] Dr. Ethan Rodriguez MD Work Phone: 0(485)182-790844 [place] [address] 08-17-2024 05:07-0400 Body mass index (BMI) [Ratio] 14.6 kg/m2 Dr. Ethan Rodriguez MD Work Phone: 9(107)636-015244 [place] [address] 08-17-2024 05:07-0400 Body weight [address] Ethan Rodriguez MD Work Phone: 3(985)800-019944 [place] [address] 08-14-2024 14:07-0400 Body height 182.[address] Ethan Rodriguez MD Work Phone: 5(578)741-731044 [place] [address] 08-14-2024 12:20-0400 Body temperature 97.8 [degF] Dr. Ethan Rodriguez MD Work Phone: 7(068)393-893644 [place] [address] 08-14-2024 12:20-0400 Diastolic blood pressure 70 mm[Hg] Dr. Ethan Rodriguez MD Work Phone: 0(312)365-647744 [place] [address] 08-14-2024 12:20-0400 Heart rate 90 /min Dr. Ethan Rodriguez MD Work Phone: 1(426)316-463544 [place] [address] 08-14-2024 12:20-0400 Respiratory rate 17 /min Dr. Ethan Rodriguez MD Work Phone: 2(482)087-630644 [place] [address] 08-14-2024 12:20-0400 SaO2% (BldA) [Mass fraction] 94 % Dr. Ethan Rodriguez MD Work Phone: [facility] 08-14-2024 12:20-0400 Systolic blood pressure 95 mm[Hg] Dr. Ethan Rodriguez MD Work Phone: [facility] 08-14-2024 11:00-0400 Inhaled oxygen flow rate 4 L/min Dr. Ethan Rodriguez MD Work Phone: 6(419)636-966629 [address] 08-14-2024 07:25-0400 Body height 182.[address] Ethan Rodriguez MD Work Phone: 5(784)482-186388 [place] [address] 08-14-2024 07:25-0400 Body mass index (BMI) [Ratio] 16.7 kg/m2 Dr. Ethan Rodriguez MD Work Phone: 9(160)771-790629 [address] 08-14-2024 07:25-0400 Body weight [address] Ethan Rodriguez MD Work Phone: 2(333)441-179844 [place] [address] 08-13-2024 15:30-0400 Inhaled oxygen flow rate 3 L/min Dr. Ethan Rodriguez MD Work Phone: 4(773)303-595888 [place] [address] 08-13-2024 14:36-0400 Body temperature 99 [degF] Dr. Ethan Rodriguez MD Work Phone: 1(905)160-737144 [place] [address] 08-13-2024 14:36-0400 Diastolic blood pressure 69 mm[Hg] Dr. Ethan Rodriguez MD Work Phone: 4(584)602-272444 [place] [address] 08-13-2024 14:36-0400 Heart rate 89 /min Dr. Ethan Rodriguez MD Work Phone: [facility] 08-13-2024 14:36-0400 Respiratory rate 18 /min Dr. Ethan Rodriguez MD Work Phone: [facility] 08-13-2024 14:36-0400 SaO2% (BldA) [Mass fraction] 100 % Dr. Ethan Rodriguez MD Work Phone: [facility] 08-13-2024 14:36-0400 Systolic blood pressure 144 mm[Hg] Dr. Ethan Rodriguez MD Work Phone: 3(677)770-218644 [place] [address] 08-12-2024 12:30-0400 Body mass index (BMI) [Ratio] 11.9 kg/m2 Dr. Ethan Rodriguez MD Work Phone: 2(845)873-209044 [place] [address] 08-12-2024 12:30-0400 Body weight [address] Ethan Rodriguez MD Work Phone: 3(804)194-656544 [place] [address] 08-06-2024 11:09-0400 Inhaled oxygen concentration 95 % Dr. Ethan Rodriguez MD Work Phone: 5(339)186-826144 [place] [address] 07-29-2024 17:48-0500 Body temperature 98.5 [degF] Dr. Ethan Rodriguez MD Work Phone: 1(463)757-377544 [place] [address] 07-29-2024 17:48-0500 Diastolic blood pressure 72 mm[Hg] Dr. Ethan Rodriguez MD Work Phone: 5(218)635-740244 [place] [address] 07-29-2024 17:48-0500 Heart rate 78 /min Dr. Ethan Rodriguez MD Work Phone: 6(382)777-519144 [place] [address] 07-29-2024 17:48-0500 Respiratory rate 18 /min Dr. Ethan Rodriguez MD Work Phone: 1(305)220-197444 [place] [address] 07-29-2024 17:48-0500 SaO2% (BldA) [Mass fraction] 97 % Dr. Ethan Rodriguez MD Work Phone: 0(824)415-650944 [place] [address] 07-29-2024 17:48-0500 Systolic blood pressure 149 mm[Hg] Dr. Ethan Rodriguez MD Work Phone: 4(358)331-915044 [place] [address] 07-29-2024 14:55-0500 Inhaled oxygen flow rate 2 L/min Dr. Ethan Rodriguez MD Work Phone: 1(511)962-760644 [place] [address] 07-29-2024 12:02-0500 Body weight 37.[address] Ethan Rodriguez MD Work Phone: 8(386)142-210444 [place] [address] 07-29-2024 11:30-0500 Body mass index (BMI) [Ratio] 11.2 kg/m2 Dr. Ethan Rodriguez MD Work Phone: 8(004)042-103444 [place] [address] 07-18-2024 18:01-0500 Diastolic blood pressure 66 mm[Hg] Dr. Ethan Rodriguez MD Work Phone: 0(721)039-236344 [place] [address] 07-18-2024 18:01-0500 Heart rate 62 /min Dr. Ethan Rodriguez MD Work Phone: 5(907)945-037944 [place] [address] 07-18-2024 18:01-0500 Inhaled oxygen flow rate 3 L/min Dr. Ethan Rodriguez MD Work Phone: 4(527)065-536744 [place] [address] 07-18-2024 18:01-0500 Respiratory rate 15 /min Dr. Ethan Rodriguez MD Work Phone: 2(654)595-488244 [place] [address] 07-18-2024 18:01-0500 SaO2% (BldA) [Mass fraction] 100 % Dr. Ethan Rodriguez MD Work Phone: 5(177)645-075144 [place] [address] 07-18-2024 18:01-0500 Systolic blood pressure 140 mm[Hg] Dr. Ethan Rodriguez MD Work Phone: 0(843)416-366344 [place] [address] 07-18-2024 15:40-0500 Body temperature 97.4 [degF] Dr. Ethan Rodriguez MD Work Phone: 1(788)174-806044 [place] [address] 07-18-2024 09:50-0500 Body mass index (BMI) [Ratio] 14.6 kg/m2 Dr. Ethan Rodriguez MD Work Phone: 1(271)630-351644 [place] [address] 07-18-2024 09:50-0500 Body weight 49.[address] Ethan Rodriguez MD Work Phone: 6(673)343-017244 [place] [address] 06-05-2024 15:34-0500 Body temperature 97.3 [degF] Dr. Ethan Rodriguez MD Work Phone: 3(346)301-314844 [place] [address] 06-05-2024 15:34-0500 Diastolic blood pressure 60 mm[Hg] Dr. Ethan Rodriguez MD Work Phone: 7(292)550-966244 [place] [address] 06-05-2024 15:34-0500 Heart rate 98 /min Dr. Ethan Rodriguez MD Work Phone: 2(658)197-685344 [place] [address] 06-05-2024 15:34-0500 Respiratory rate 16 /min Dr. Ethan Rodriguez MD Work Phone: [facility] 06-05-2024 15:34-0500 Systolic blood pressure 90 mm[Hg] Dr. Ethan Rodriguez MD Work Phone: [facility] 04-30-2024 13:45-0500 Body mass index (BMI) [Ratio] 15 kg/m2 Dr. Ethan Rodriguez MD Work Phone: [facility] 04-30-2024 13:45-0500 Body weight 48.[address] Ethan Rodriguez MD Work Phone: [facility] 04-30-2024 13:45-0500 Diastolic blood pressure 81 mm[Hg] Dr. Ethan Rodriguez MD Work Phone: [facility] 04-30-2024 13:45-0500 Respiratory rate 18 /min Dr. Ethan Rodriguez MD Work Phone: [facility] 04-30-2024 13:45-0500 Systolic blood pressure 112 mm[Hg] Dr. Ethan Rodriguez MD Work Phone: [facility] 04-04-2024 10:22-0500 Body height 182.9 cm Cate Contreras REGISTERED NURSE CARDIOVASCULAR ICU Work Phone: [facility] 04-04-2024 10:22-0500 Body mass index (BMI) [Ratio] 15.6 kg/m2 Cate Contreras REGISTERED NURSE CARDIOVASCULAR ICU Work Phone: [facility] 04-04-2024 10:22-0500 Body weight 52.16 kg Cate Contreras REGISTERED NURSE CARDIOVASCULAR ICU Work Phone: [facility] 04-04-2024 10:22-0500 Diastolic blood pressure 60 mm[Hg] Cate Contreras REGISTERED NURSE CARDIOVASCULAR ICU Work Phone: [facility] 04-04-2024 10:22-0500 Heart rate 94 /min Cate Contreras REGISTERED NURSE CARDIOVASCULAR ICU Work Phone: [facility] 04-04-2024 10:22-0500 Respiratory rate 12 /min Cate Contreras REGISTERED NURSE CARDIOVASCULAR ICU Work Phone: [facility] 04-04-2024 10:22-0500 SaO2% (BldA) [Mass fraction] 92 % Cate Contreras REGISTERED NURSE CARDIOVASCULAR ICU Work Phone: [facility] 04-04-2024 10:22-0500 Systolic blood pressure 82 mm[Hg] Cate Contreras REGISTERED NURSE CARDIOVASCULAR ICU Work Phone: [facility] 01-09-2024 12:36-0400 Diastolic blood pressure 97 mm[Hg] Sarath Rey MD Work Phone: [facility] 01-09-2024 12:36-0400 Heart rate 73 /min Sarath Rey MD Work Phone: [facility] 01-09-2024 12:36-0400 Systolic blood pressure 146 mm[Hg] Sarath Rey MD Work Phone: [facility] 01-09-2024 12:30-0400 Body height 180.3 cm Sarath Rey MD Work Phone: [facility] 01-09-2024 12:30-0400 Body mass index (BMI) [Ratio] 16.46 kg/m2 Sarath Rey MD Work Phone: [facility] 01-09-2024 12:30-0400 Body weight 53.52 kg Sarath Rey MD Work Phone: [facility] 01-03-2024 07:49-0400 Body temperature 97.3 [degF] Makenzie Garza RN [facility] 01-03-2024 07:49-0400 Diastolic blood pressure 82 mm[Hg] Makenzie Garza RN [facility] 01-03-2024 07:49-0400 Heart rate 72 /min Makenzie Garza RN [facility] 01-03-2024 07:49-0400 Respiratory rate 18 /min Makenzie Garza RN [facility] 01-03-2024 07:49-0400 SaO2% (BldA) [Mass fraction] 94 % Makenzie Garza RN [facility] 01-03-2024 07:49-0400 Systolic blood pressure 144 mm[Hg] Makenzie Garza RN [facility] 12-27-2023 16:20-0400 Body mass index (BMI) [Ratio] 16.32 kg/m2 Nahid Lindsay PT [facility] 12-27-2023 16:20-0400 Body temperature 98.1 [degF] Nahid Lindsay PT [facility] 12-27-2023 16:20-0400 Body weight 53.07 kg Nahid Lindsay PT [facility] 12-27-2023 16:20-0400 Diastolic blood pressure 82 mm[Hg] Nahid Lindsay PT [facility] 12-27-2023 16:20-0400 Heart rate 62 /min Nahid Lindsay PT [facility] 12-27-2023 16:20-0400 Respiratory rate 16 /min Nahid Lindsay PT [facility] 12-27-2023 16:20-0400 SaO2% (BldA) [Mass fraction] 96 % Nahid Lindsay PT [facility] 12-27-2023 16:20-0400 Systolic blood pressure 124 mm[Hg] Nahid Lindsay PT [facility] 12-27-2023 12:35-0400 Body temperature 97.11 [degF] Antonietta Aleshia [facility] 12-27-2023 12:35-0400 Diastolic blood pressure 80 mm[Hg] Antonietta Aleshia [facility] 12-27-2023 12:35-0400 Heart rate 72 /min Antonietta Aleshia [facility] 12-27-2023 12:35-0400 Respiratory rate 16 /min Antonietta Aleshia [facility] 12-27-2023 12:35-0400 SaO2% (BldA) [Mass fraction] 93 % Antonietta Aleshia [facility] 12-27-2023 12:35-0400 Systolic blood pressure 122 mm[Hg] Antonietta Aleshia [facility] 12-26-2023 11:59-0400 Diastolic blood pressure 87 mm[Hg] Sarath Rey MD Work Phone: [facility] 12-26-2023 11:59-0400 Heart rate 65 /min Sarath Rey MD Work Phone: [facility] 12-26-2023 11:59-0400 Systolic blood pressure 145 mm[Hg] Sarath Rey MD Work Phone: [facility] 12-26-2023 11:53-0400 Body height 180.3 cm Sarath Rey MD Work Phone: [facility] 12-26-2023 11:53-0400 Body mass index (BMI) [Ratio] 16.18 kg/m2 Sarath Rey MD Work Phone: [facility] 12-26-2023 11:53-0400 Body weight 52.62 kg Sarath Rey MD Work Phone: [facility] 12-25-2023 14:00-0400 Body temperature 96.91 [degF] [facility] 12-25-2023 14:00-0400 Diastolic blood pressure 90 mm[Hg] [facility] 12-25-2023 14:00-0400 Heart rate 80 /min [facility] 12-25-2023 14:00-0400 Respiratory rate 16 /min [facility] 12-25-2023 14:00-0400 Systolic blood pressure 147 mm[Hg] [facility] 12-20-2023 16:23-0400 Body temperature 98.8 [degF] [facility]-20-[facility] 16:23-0400 Diastolic blood pressure 93 mm[Hg] [facility] 12-20-2023 16:23-0400 Heart rate 66 /min [facility] 12-20-2023 16:23-0400 Respiratory rate 16 /min [facility] 12-20-2023 16:23-0400 SaO2% (BldA) [Mass fraction] 98 % Adileneher Albright [facility] 12-20-2023 16:23-0400 Systolic blood pressure 150 mm[Hg] Adileneher Albright [facility] 12-20-2023 12:22-0400 Body temperature 97.7 [degF] Ernestina Moody [facility] 12-20-2023 12:22-0400 Diastolic blood pressure 75 mm[Hg] Ernestina Moody [facility] 12-20-2023 12:22-0400 Heart rate 70 /min Ernestina Moody [facility] 12-20-2023 12:22-0400 Respiratory rate 16 /min Ernestina Moody [facility] 12-20-2023 12:22-0400 SaO2% (BldA) [Mass fraction] 98 % Ernestina Moody [facility] 12-20-2023 12:22-0400 Systolic blood pressure 148 mm[Hg] Ernestina Moody [facility] 12-18-2023 12:33-0400 Diastolic blood pressure 87 mm[Hg] Ernestina Moody [facility] 12-18-2023 12:33-0400 Respiratory rate 16 /min Ernestina Moody [facility] 12-18-2023 12:33-0400 Systolic blood pressure 153 mm[Hg] Ernestina Moody [facility] 12-18-2023 12:08-0400 Body temperature 97 [degF] Ernestina Moody [facility] 12-18-2023 12:08-0400 Heart rate 59 /min Ernestina Moody [facility] 12-14-2023 11:15-0400 Body temperature 97 [degF] Ernestina Moody [facility] 12-14-2023 11:15-0400 Diastolic blood pressure 72 mm[Hg] Ernestina Moody [facility] 12-14-2023 11:15-0400 Heart rate 62 /min Ernestina Moody [facility] 12-14-2023 11:15-0400 Respiratory rate 16 /min Ernestina Moody [facility] 12-14-2023 11:15-0400 SaO2% (BldA) [Mass fraction] 97 % Ernestina Moody [facility] 12-14-2023 11:15-0400 Systolic blood pressure 117 mm[Hg] Ernestina Moody [facility] 12-13-2023 13:12-0400 Body temperature 97 [degF] Makenzie Garza RN [facility] 12-13-2023 13:12-0400 Diastolic blood pressure 68 mm[Hg] Makenzie Garza RN [facility] 12-13-2023 13:12-0400 Heart rate 56 /min Makenzie Garza RN [facility] 12-13-2023 13:12-0400 Respiratory rate 18 /min Makenzie Garza RN [facility] 12-13-2023 13:12-0400 SaO2% (BldA) [Mass fraction] 99 % Makenzie Garza RN [facility] 12-13-2023 13:12-0400 Systolic blood pressure 118 mm[Hg] Makenzie Garza RN [facility] 12-13-2023 11:13-0400 Body temperature 97.2 [degF] Ernestina Fransisco [facility] 12-13-2023 11:13-0400 Diastolic blood pressure 88 mm[Hg] Ernestina Moody [employer] [facility] 12-13-2023 11:13-0400 Heart rate 64 /min Ernestina Moody [employer] [facility] 12-13-2023 11:13-0400 Respiratory rate 16 /min Ernestina Moody [employer] [facility] 12-13-2023 11:13-0400 Systolic blood pressure 140 mm[Hg] Ernestina Moody [facility] 12-06-2023 14:27-0400 Body mass index (BMI) [Ratio] 15.9 kg/m2 Nahid Lindsay PT [facility] 12-06-2023 14:27-0400 Body temperature 98.1 [degF] Nahid Lindsay PT [facility] 12-06-2023 14:27-0400 Body weight 51.71 kg Nahid Lindsay PT [facility] 12-06-2023 14:27-0400 Diastolic blood pressure 74 mm[Hg] Nahid Lindsay PT [facility] 12-06-2023 14:27-0400 Heart rate 76 /min Nahid Lindsay PT [facility] 12-06-2023 14:27-0400 Respiratory rate 16 /min Nahid Lindsay PT [facility] 12-06-2023 14:27-0400 SaO2% (BldA) [Mass fraction] 96 % Nahid Lindsay PT [facility] 12-06-2023 14:27-0400 Systolic blood pressure 128 mm[Hg] Nahid Lindsay PT [facility] 12-06-2023 10:29-0400 Body temperature 97.7 [degF] Makenzie Garza RN [facility] 12-06-2023 10:29-0400 Diastolic blood pressure 78 mm[Hg] Makenzie Garza RN [facility] 12-06-2023 10:29-0400 Heart rate 88 /min Makenzie Garza RN [facility] 12-06-2023 10:29-0400 Respiratory rate 16 /min Makenzie Garza RN [facility] 12-06-2023 10:29-0400 Systolic blood pressure 148 mm[Hg] Makenzie Garza RN [facility] 12-05-2023 11:20-0400 Body temperature 97.7 [degF] Ernestina Moody [employer] [facility] 12-05-2023 11:20-0400 Diastolic blood pressure 73 mm[Hg] Ernestina Moody [facility] Comment on above: pt had not taken BP medication yet 12-05-2023 11:20-0400 Heart rate 69 /min Ernestina Moody [facility] 12-05-2023 11:20-0400 Respiratory rate 16 /min Ernestina Moody [facility] 12-05-2023 11:20-0400 SaO2% (BldA) [Mass fraction] 98 % Ernestina Moody [facility] 12-05-2023 11:20-0400 Systolic blood pressure 150 mm[Hg] Ernestina Moody [facility] Comment on above: pt had not taken BP medication yet 11-29-2023 13:07-0400 Body temperature 98.1 [degF] Sol Bui OT [facility] 11-29-2023 13:07-0400 Diastolic blood pressure 76 mm[Hg] Sol Bui OT [facility] 11-29-2023 13:07-0400 Heart rate 62 /min Sol Bui OT [facility] 11-29-2023 13:07-0400 Respiratory rate 14 /min Sol Bui OT [facility] 11-29-2023 13:07-0400 Systolic blood pressure 139 mm[Hg] Sol Bui OT [facility] 11-29-2023 11:44-0400 Body temperature 97.11 [degF] Adilene Albright [facility] 11-29-2023 11:44-0400 Diastolic blood pressure 77 mm[Hg] Adilene Albright [facility] 11-29-2023 11:44-0400 Heart rate 61 /min Adilene Albright [facility] 11-29-2023 11:44-0400 Respiratory rate 18 /min Adilene Albright [facility] 11-29-2023 11:44-0400 SaO2% (BldA) [Mass fraction] 100 % Adilene Albright [facility] 11-29-2023 11:44-0400 Systolic blood pressure 127 mm[Hg] Adilene Albright [facility] 11-29-2023 09:19-0400 Body temperature 97.5 [degF] Ernestina Moody [facility] 11-29-2023 09:19-0400 Diastolic blood pressure 80 mm[Hg] Ernestina Moody [facility] 11-29-2023 09:19-0400 Heart rate 64 /min Ernestina Moody [facility] 11-29-2023 09:19-0400 Respiratory rate 16 /min Ernestina Moody [facility] 11-29-2023 09:19-0400 SaO2% (BldA) [Mass fraction] 99 % Ernestina Moody [facility] 11-29-2023 09:19-0400 Systolic blood pressure 127 mm[Hg] Ernestina Moody [facility] 11-28-2023 10:13-0400 Body temperature 97.2 [degF] Ernestina Moody [facility] 11-28-2023 10:13-0400 Diastolic blood pressure 82 mm[Hg] Ernestina Moody [facility] 11-28-2023 10:13-0400 Heart rate 69 /min Ernestina Moody [facility] 11-28-2023 10:13-0400 Respiratory rate 16 /min Ernestina Moody [facility] 11-28-2023 10:13-0400 SaO2% (BldA) [Mass fraction] 100 % Ernestina Moody [facility] 11-28-2023 10:13-0400 Systolic blood pressure 133 mm[Hg] Ernestina Moody [facility] 11-27-2023 15:51-0400 Body temperature 97.59 [degF] [facility] 11-27-2023 15:51-0400 Diastolic blood pressure 76 mm[Hg] [facility] 11-27-2023 15:51-0400 Heart rate 83 /min [facility] 11-27-2023 15:51-0400 Respiratory rate 16 /min [facility] 11-27-2023 15:51-0400 SaO2% (BldA) [Mass fraction] 99 % [facility] 11-27-2023 15:51-0400 Systolic blood pressure 111 mm[Hg] [facility] 11-24-2023 15:47-0400 Body temperature 98.71 [degF] [facility] 11-24-2023 15:47-0400 Diastolic blood pressure 83 mm[Hg] [facility] 11-24-2023 15:47-0400 Heart rate 69 /min [facility] 11-24-2023 15:47-0400 Respiratory rate 16 /min [facility] [facility] 11-24-2023 15:47-0400 SaO2% (BldA) [Mass fraction] 99 % Giovanyjett Montalvo [facility] 11-24-2023 15:47-0400 Systolic blood pressure 163 mm[Hg] Giovany Montalvo [facility] 11-23-2023 16:05-0400 Body temperature 97.7 [degF] Giovany Montalvo [facility] 11-23-2023 16:05-0400 Diastolic blood pressure 89 mm[Hg] Giovany Montalvo [facility] 11-23-2023 16:05-0400 Heart rate 58 /min Giovany Montalvo [facility] 11-23-2023 16:05-0400 Respiratory rate 16 /min Giovanyjett Montalvo [facility] 11-23-2023 16:05-0400 SaO2% (BldA) [Mass fraction] 99 % Giovanyjett Montalvo [facility] 11-23-2023 16:05-0400 Systolic blood pressure 140 mm[Hg] Giovanyharshil Montalvo [facility] 11-23-2023 13:17-0400 Diastolic blood pressure 80 mm[Hg] Ying Quispe DO Work Phone: [facility] 11-23-2023 13:17-0400 Systolic blood pressure 104 mm[Hg] Ying Quispe DO Work Phone: [facility] 11-23-2023 13:11-0400 Body height 180.3 cm Ying Quispe DO Work Phone: [facility] 11-23-2023 13:11-0400 Body mass index (BMI) [Ratio] 16.01 kg/m2 Ying Quispe DO Work Phone: [facility] 11-23-2023 13:11-0400 Body temperature 98.29 [degF] Ying Quispe DO Work Phone: [facility] 11-23-2023 13:11-0400 Body weight 52.07 kg Ying Quispe DO Work Phone: [facility] 11-23-2023 13:11-0400 Heart rate 90 /min Ying Quispe DO Work Phone: [facility] 11-23-2023 13:11-0400 Respiratory rate 16 /min Ying Quispe DO Work Phone: [facility] 11-23-2023 09:59-0400 Body temperature 96.8 [degF] Ernestina Moody [facility] 11-23-2023 09:59-0400 Diastolic blood pressure 81 mm[Hg] Ernestina Moody SET STAFF FITTER [facility] 11-23-2023 09:59-0400 Heart rate 67 /min Ernestina Moody SET STAFF FITTER [facility] 11-23-2023 09:59-0400 Respiratory rate 16 /min Ernestina Moody SET STAFF FITTER [facility] 11-23-2023 09:59-0400 Systolic blood pressure 157 mm[Hg] Ernestina Moody SET STAFF FITTER [facility] 11-22-2023 13:56-0400 Body temperature 98.49 [degF] Abigail Domka REGISTERED NURSE CARDIOVASCULAR ICU Work Phone: [facility] 11-22-2023 13:56-0400 Diastolic blood pressure 74 mm[Hg] Abigail Domka REGISTERED NURSE CARDIOVASCULAR ICU Work Phone: [facility] 11-22-2023 13:56-0400 Heart rate 89 /min Abigail Domka REGISTERED NURSE CARDIOVASCULAR ICU Work Phone: [facility] 11-22-2023 13:56-0400 Respiratory rate 16 /min Abigail Domka REGISTERED NURSE CARDIOVASCULAR ICU Work Phone: [facility] 11-22-2023 13:56-0400 SaO2% (BldA) [Mass fraction] 93 % Abigail Domka REGISTERED NURSE CARDIOVASCULAR ICU Work Phone: [facility] 11-22-2023 13:56-0400 Systolic blood pressure 114 mm[Hg] Abigail Domka REGISTERED NURSE CARDIOVASCULAR ICU Work Phone: [facility] 11-21-2023 13:21-0400 Body temperature 97.11 [degF] Adilene Antoniou [facility] 11-21-2023 13:21-0400 Diastolic blood pressure 64 mm[Hg] Adilene Antoniou RAIL LOADER [facility] 11-21-2023 13:21-0400 Heart rate 60 /min Adilene Antoniou [facility] 11-21-2023 13:21-0400 Respiratory rate 16 /min Adilene Antoniou [facility] 11-21-2023 13:21-0400 SaO2% (BldA) [Mass fraction] 100 % Adilene Albright LPN [facility] 11-21-2023 13:21-0400 Systolic blood pressure 127 mm[Hg] [facility] 11-21-2023 12:15-0400 Body temperature 97 [degF] Ernestina Moody [facility] 11-21-2023 12:15-0400 Diastolic blood pressure 63 mm[Hg] Ernestina Moody [facility] 11-21-2023 12:15-0400 Heart rate 59 /min Ernestina Moody [facility] 11-21-2023 12:15-0400 Respiratory rate 16 /min Ernestina Moody [facility] 11-21-2023 12:15-0400 SaO2% (BldA) [Mass fraction] 100 % Ernestina Moody [facility] 11-21-2023 12:15-0400 Systolic blood pressure 121 mm[Hg] Ernestina Moody [facility] 11-17-2023 15:18-0400 Body temperature 97.5 [degF] Giovany Montalvo [facility] 11-17-2023 15:18-0400 Diastolic blood pressure 86 mm[Hg] Giovany Montalvo [facility] 11-17-2023 15:18-0400 Heart rate 75 /min Giovany Montalvo [facility] 11-17-2023 15:18-0400 [facility]piratory rate 16 /[facility]-17-[facility]23 15:18-0400 SaO2% (BldA) [Mass fraction] 99 % Giovany Montalvo [facility] 11-17-2023 15:18-0400 Systolic blood pressure 148 mm[Hg] [facility]-17-2023 08:07-0400 Diastolic blood pressure 81 mm[Hg] Tylor Kruger MD Work Phone: [facility] 11-17-2023 08:07-0400 Heart rate 65 /min Tylor Kruger MD Work Phone: [facility] 11-17-2023 08:07-0400 Systolic blood pressure 145 mm[Hg] Tylor Kruger MD Work Phone: [facility] 11-17-2023 08:05-0400 Body height 180.3 cm Tylor Kruger MD Work Phone: [facility] 11-17-2023 08:05-0400 Body mass index (BMI) [Ratio] 17.43 kg/m2 Tylor Kruger MD Work Phone: [facility] 11-17-2023 08:05-0400 Body weight 56.7 kg Tylor Kruger MD Work Phone: [facility] 11-16-2023 13:44-0400 Body temperature 97.7 [degF] Ernestina Moody [facility] 11-16-2023 13:44-0400 Diastolic blood pressure 64 mm[Hg] Ernestina Moody [facility] 11-16-2023 13:44-0400 Heart rate 65 /min Ernestina Moody [facility] 11-16-2023 13:44-0400 Respiratory rate 16 /min Ernestina Moody [facility] 11-16-2023 13:44-0400 SaO2% (BldA) [Mass fraction] 96 % Ernestina Moody [facility] 11-16-2023 13:44-0400 Systolic blood pressure 111 mm[Hg] Ernestina Moody [facility] 11-14-2023 10:17-0400 Body temperature 98.29 [degF] Nahid Lindsay [facility] 11-14-2023 10:17-0400 Diastolic blood pressure 78 mm[Hg] Nahid Lindsay [facility] 11-14-2023 10:17-0400 Heart rate 98 /min Nahid Lindsay PT [facility] 11-14-2023 10:17-0400 Respiratory rate 16 /min Nahid Lindsay [facility] 11-14-2023 10:17-0400 SaO2% (BldA) [Mass fraction] 99 % Nahid Lindsay PT [facility] 11-14-2023 10:17-0400 Systolic blood pressure 148 mm[Hg] Nahid Lindsay [facility] 11-14-2023 09:47-0400 Body temperature 100 [degF] Adilene Calviniou [facility] 11-14-2023 09:47-0400 Diastolic blood pressure 82 mm[Hg] Adilene Antoniou [facility] 11-14-2023 09:47-0400 Heart rate 65 /min Adilene Antoniou [facility] 11-14-2023 09:47-0400 Respiratory rate 16 /min Adilene Albright [facility] 11-14-2023 09:47-0400 SaO2% (BldA) [Mass fraction] 97 % Adilene Albright [facility] 11-14-2023 09:47-0400 Systolic blood pressure 148 mm[Hg] Adilene Albright [facility] 11-13-2023 16:18-0400 Body temperature 97.59 [degF] [facility] 11-13-2023 16:18-0400 Diastolic blood pressure 85 mm[Hg] [facility] 11-13-2023 16:18-0400 Heart rate 67 /min [facility] 11-13-2023 16:18-0400 Respiratory rate 16 /min [facility] 11-13-2023 16:18-0400 SaO2% (BldA) [Mass fraction] 99 % [facility] 11-13-2023 16:18-0400 Systolic blood pressure 150 mm[Hg] [facility] 11-08-2023 11:20-0400 Body temperature 99.3 [degF] Solleatha Bui [facility] 11-08-2023 11:20-0400 Diastolic blood pressure 91 mm[Hg] Solleatha Bui [facility] 11-08-2023 11:20-0400 Heart rate 70 /min Sol Bui [facility] 11-08-2023 11:20-0400 Respiratory rate 14 /min Solleatha Bui [facility] 11-08-2023 11:20-0400 SaO2% (BldA) [Mass fraction] 99 % Solleatha Bui [facility] 11-08-2023 11:20-0400 Systolic blood pressure 177 mm[Hg] Sol Hao [facility] 11-08-2023 00:00-0400 Body temperature 98.1 [degF] Antonietta Aleshia [facility] 11-08-2023 00:00-0400 Diastolic blood pressure 90 mm[Hg] Antonietta Aleshia [facility] 11-08-2023 00:00-0400 Heart rate 72 /min Antonietta Aleshia [facility] 11-08-2023 00:00-0400 Respiratory rate 16 /min Antonietta Monk RAIL LOADER [facility] 11-08-2023 00:00-0400 SaO2% (BldA) [Mass fraction] 97 % Antonietta Monk RAIL LOADER [facility] 11-08-2023 00:00-0400 Systolic blood pressure 148 mm[Hg] Antonietta Monk LPN [facility] 11-06-2023 10:03-0400 Body temperature 97.9 [degF] Makenzie Greg RN [facility] 11-06-2023 10:03-0400 Diastolic blood pressure 88 mm[Hg] Makenzie Greg RN [facility] 11-06-2023 10:03-0400 Heart rate 74 /min Makenzie Garza RN [facility] 11-06-2023 10:03-0400 Respiratory rate 16 /min Makenzie Greg RN [facility] 11-06-2023 10:03-0400 SaO2% (BldA) [Mass fraction] 94 % Makenzie Garza RN [facility] 11-06-2023 10:03-0400 Systolic blood pressure 167 mm[Hg] Makenzie Greg RN [facility] 11-01-2023 13:10-0400 Diastolic blood pressure 76 mm[Hg] Cate Contreras REGISTERED NURSE CARDIOVASCULAR ICU Work Phone: [facility] 11-01-2023 13:10-0400 Heart rate 52 /min Cate Contreras REGISTERED NURSE CARDIOVASCULAR ICU Work Phone: [facility] 11-01-2023 13:10-0400 Systolic blood pressure 148 mm[Hg] Cate Contreras REGISTERED NURSE CARDIOVASCULAR ICU Work Phone: [facility] 11-01-2023 12:53-0400 Body height 180.3 cm Cate Contreras REGISTERED NURSE CARDIOVASCULAR ICU Work Phone: [facility] 11-01-2023 12:53-0400 Body mass index (BMI) [Ratio] 18.13 kg/m2 Cate Contreras REGISTERED NURSE CARDIOVASCULAR ICU Work Phone: [facility] 11-01-2023 12:53-0400 Body weight 58.97 kg Cate Contreras REGISTERED NURSE CARDIOVASCULAR ICU Work Phone: [facility] 09-26-2023 09:01-0400 Body height 180.3 cm Felicity Olson CNP Work Phone: [facility] 09-26-2023 09:01-0400 Body mass index (BMI) [Ratio] 17.25 kg/m2 Felicity Olson REGISTERED NURSE CARDIOVASCULAR ICU Work Phone: [facility] 09-26-2023 09:01-0400 Body temperature 98.2 [degF] Felicity Olson REGISTERED NURSE CARDIOVASCULAR ICU Work Phone: [facility] 09-26-2023 09:01-0400 Body weight 56.11 kg Felicity Olson CNP Work Phone: [facility] 09-26-2023 09:01-0400 Diastolic blood pressure 70 mm[Hg] Felicity Olson CNP Work Phone: [facility] 09-26-2023 09:01-0400 Heart rate 75 /min Felicity Olson CNP Work Phone: [facility] 09-26-2023 09:01-0400 Respiratory rate 18 /min Felicity Olson REGISTERED NURSE CARDIOVASCULAR ICU Work Phone: [facility] 09-26-2023 09:01-0400 SaO2% (BldA) [Mass fraction] 93 % Felicity Olson REGISTERED NURSE CARDIOVASCULAR ICU Work Phone: [facility] 09-26-2023 09:01-0400 Systolic blood pressure 114 mm[Hg] Felicity Wesley REGISTERED NURSE CARDIOVASCULAR ICU Work Phone: [facility] 08-24-2023 12:56-0400 Body temperature 98.91 [degF] Theresa BRIGGS-C Work Phone: [facility] 08-24-2023 12:56-0400 Diastolic blood pressure 64 mm[Hg] Theresa BRIGGS-C Work Phone: [facility] 08-24-2023 12:56-0400 Systolic blood pressure 122 mm[Hg] Theresa Boykin PA-C Work Phone: [facility] 07-18-2023 08:55-0500 Body temperature 98.49 [degF] Yfn Lavern Jr., DPM Work Phone: [facility] 07-18-2023 08:55-0500 Diastolic blood pressure 70 mm[Hg] Yfn Lavern Jr., DPM Work Phone: [facility] 07-18-2023 08:55-0500 Heart rate 89 /min Yfn Lavern Jr., DPM Work Phone: [facility] 07-18-2023 08:55-0500 Systolic blood pressure 109 mm[Hg] Yfn Lavern Jr., DPM Work Phone: [facility] 07-04-2023 08:25-0500 Body temperature 98.2 [degF] Yfn Lavern Jr., DPM Work Phone: [facility] 07-04-2023 08:25-0500 Diastolic blood pressure 66 mm[Hg] Yfn Lavern Jr., DPM Work Phone: [facility] 07-04-2023 08:25-0500 Heart rate 92 /min Yfn Danieln Jr., DPM Work Phone: [facility] 07-04-2023 08:25-0500 Systolic blood pressure 100 mm[Hg] Yfn Lavern Jr., DPM Work Phone: [facility] 04-24-2023 11:26-0500 Body height 180.3 cm Ying Quispe DO Work Phone: [facility] 04-24-2023 11:26-0500 Body mass index (BMI) [Ratio] 19.54 kg/m2 Ying Quispe DO Work Phone: [facility] 04-24-2023 11:26-0500 Body temperature 97.9 [degF] Ying Quispe DO Work Phone: [facility] 04-24-2023 11:26-0500 Body weight 63.55 kg Ying Quispe DO Work Phone: [facility] 04-24-2023 11:26-0500 Diastolic blood pressure 68 mm[Hg] Ying Quispe DO Work Phone: [facility] 04-24-2023 11:26-0500 Heart rate 80 /min Ying Quispe DO Work Phone: [facility] 04-24-2023 11:26-0500 Respiratory rate 16 /min Ying Quispe DO Work Phone: [facility] 04-24-2023 11:26-0500 Systolic blood pressure 110 mm[Hg] Ying Quispe DO Work Phone: [facility] 01-25-2023 15:39-0400 Body height 180.3 cm Ying Quispe DO Work Phone: [facility] 01-25-2023 15:39-0400 Body mass index (BMI) [Ratio] 20.13 kg/m2 Ying Quispe DO Work Phone: [facility] 01-25-2023 15:39-0400 Body temperature 97.59 [degF] Ying Quispe DO Work Phone: [facility] 01-25-2023 15:39-0400 Body weight 65.45 kg Ying Quispe DO Work Phone: [facility] 01-25-2023 15:39-0400 Diastolic blood pressure 72 mm[Hg] Ying Quispe DO Work Phone: [facility] 01-25-2023 15:39-0400 Heart rate 72 /min Ying Quispe DO Work Phone: [facility] 01-25-2023 15:39-0400 Respiratory rate 18 /min Ying Quispe DO Work Phone: [facility] 01-25-2023 15:39-0400 SaO2% (BldA) [Mass fraction] 99 % Ying Quispe DO Work Phone: [facility] 01-25-2023 15:39-0400 Systolic blood pressure 132 mm[Hg] Ying Chaffee DO Work Phone: [facility] 12-12-2022 09:32-0400 Body height 180.3 cm Lita Gu MD Work Phone: [facility] 12-12-2022 09:32-0400 Body mass index (BMI) [Ratio] 20.64 kg/m2 Lita Gu MD Work Phone: [facility] 12-12-2022 09:32-0400 Body temperature 98.1 [degF] Lita Gu MD Work Phone: [facility] 12-12-2022 09:32-0400 Body weight 67.13 kg Lita Gu MD Work Phone: [facility] 12-12-2022 09:32-0400 Diastolic blood pressure 84 mm[Hg] Lita Gu MD Work Phone: [facility] 12-12-2022 09:32-0400 Heart rate 93 /min Lita Gu MD Work Phone: [facility] 12-12-2022 09:32-0400 SaO2% (BldA) [Mass fraction] 97 % Lita Gu MD Work Phone: [facility] 12-12-2022 09:32-0400 Systolic blood pressure 130 mm[Hg] Lita Gu MD Work Phone: [facility] 11-28-2022 16:59-0400 Diastolic blood pressure 80 mm[Hg] Ying Quispe DO Work Phone: [facility] 11-28-2022 16:59-0400 Systolic blood pressure 146 mm[Hg] Ying Quispe DO Work Phone: [facility] 11-28-2022 16:12-0400 Body height 180.3 cm Ying Quispe DO Work Phone: [facility] 11-28-2022 16:12-0400 Body mass index (BMI) [Ratio] 21.27 kg/m2 Ying Quispe DO Work Phone: [facility] 11-28-2022 16:12-0400 Body temperature 98.29 [degF] Ying Quispe DO Work Phone: [facility] 11-28-2022 16:12-0400 Body weight 69.17 kg Ying Quispe DO Work Phone: [facility] 11-28-2022 16:12-0400 Heart rate 92 /min Ying Quispe DO Work Phone: [facility] 11-28-2022 16:12-0400 Respiratory rate 20 /min Ying Quispe DO Work Phone: [facility] 11-28-2022 16:12-0400 SaO2% (BldA) [Mass fraction] 99 % Ying Quispe DO Work Phone: [facility] 10-25-2022 10:32-0400 Body height 180.3 cm Lita Gu MD Work Phone: [facility] 10-25-2022 10:32-0400 Body mass index (BMI) [Ratio] 21.38 kg/m2 Lita Gu MD Work Phone: [facility] 10-25-2022 10:32-0400 Body temperature 98.71 [degF] Lita Gu MD Work Phone: [facility] 10-25-2022 10:32-0400 Body weight 69.54 kg Lita Gu MD Work Phone: [facility] 10-25-2022 10:32-0400 Diastolic blood pressure 78 mm[Hg] Lita Gu MD Work Phone: [facility] 10-25-2022 10:32-0400 Heart rate 86 /min Lita Gu MD Work Phone: [facility] 10-25-2022 10:32-0400 SaO2% (BldA) [Mass fraction] 94 % Lita Gu MD Work Phone: [facility] 10-25-2022 10:32-0400 Systolic blood pressure 137 mm[Hg] Lita Gu MD Work Phone: [facility] 09-27-2022 09:03-0400 Body height 180.3 cm Lita Gu MD Work Phone: [facility] 09-27-2022 09:03-0400 Body mass index (BMI) [Ratio] 22.82 kg/m2 Lita Gu MD Work Phone: [facility] 09-27-2022 09:03-0400 Body temperature 98.4 [degF] Lita Gu MD Work Phone: [facility] 09-27-2022 09:03-0400 Body weight 74.21 kg Lita Gu MD Work Phone: [facility] 09-27-2022 09:03-0400 Diastolic blood pressure 84 mm[Hg] Lita Gu MD Work Phone: [facility] 09-27-2022 09:03-0400 Heart rate 95 /min Lita Gu MD Work Phone: [facility] 09-27-2022 09:03-0400 SaO2% (BldA) [Mass fraction] 95 % Lita Gu MD Work Phone: [facility] 09-27-2022 09:03-0400 Systolic blood pressure 144 mm[Hg] Lita Gu MD Work Phone: [facility] 08-15-2022 16:36-0400 Body height 180.3 cm Ying Quispe DO Work Phone: [facility] 08-15-2022 16:36-0400 Body mass index (BMI) [Ratio] 23.32 kg/m2 Ying Quispe DO Work Phone: [facility] 08-15-2022 16:36-0400 Body temperature 99.19 [degF] Ying Quispe DO Work Phone: [facility] 08-15-2022 16:36-0400 Body weight 75.84 kg Ying Quispe DO Work Phone: [facility] 08-15-2022 16:36-0400 Diastolic blood pressure 80 mm[Hg] Ying Quispe DO Work Phone: [facility] 08-15-2022 16:36-0400 Heart rate 88 /min Ying Quispe DO Work Phone: [facility] 08-15-2022 16:36-0400 Respiratory rate 14 /min Ying Quispe DO Work Phone: [facility] 08-15-2022 16:36-0400 Systolic blood pressure 138 mm[Hg] Ying Quispe DO Work Phone: [facility] 07-06-2022 08:34-0500 Body height 180.3 cm Lita Gu MD Work Phone: [facility] 07-06-2022 08:34-0500 Body mass index (BMI) [Ratio] 24.02 kg/m2 Lita Gu MD Work Phone: [facility] 07-06-2022 08:34-0500 Body temperature 98.2 [degF] Lita Gu MD Work Phone: [facility] 07-06-2022 08:34-0500 Body weight 78.11 kg Lita Gu MD Work Phone: [facility] 07-06-2022 08:34-0500 Diastolic blood pressure 83 mm[Hg] Lita Gu MD Work Phone: [facility] 07-06-2022 08:34-0500 Heart rate 92 /min Lita Gu MD Work Phone: [facility] 07-06-2022 08:34-0500 SaO2% (BldA) [Mass fraction] 94 % Lita Gu MD Work Phone: [facility] 07-06-2022 08:34-0500 Systolic blood pressure 133 mm[Hg] Lita Gu MD Work Phone: [facility] 06-13-2022 15:17-0500 Body height 180.3 cm Ying Mccurdywell DO Work Phone: [facility] 06-13-2022 15:17-0500 Body mass index (BMI) [Ratio] 24.73 kg/m2 Ying Quispe DO Work Phone: [facility] 06-13-2022 15:17-0500 Body temperature 98.71 [degF] Ying Quispe DO Work Phone: [facility] 06-13-2022 15:17-0500 Body weight 80.42 kg Ying Quispe DO Work Phone: [facility] 06-13-2022 15:17-0500 Diastolic blood pressure 70 mm[Hg] Ying Quispe DO Work Phone: [facility] 06-13-2022 15:17-0500 Heart rate 72 /min Ying Quispe DO Work Phone: [facility] 06-13-2022 15:17-0500 Respiratory rate 18 /min Ying Quispe DO Work Phone: [facility] 06-13-2022 15:17-0500 Systolic blood pressure 132 mm[Hg] Ying Quispe DO Work Phone: [facility] 06-11-2022 09:40-0500 Body temperature 98.91 [degF] Shira Lopez MD Work Phone: [facility] 06-11-2022 09:40-0500 Diastolic blood pressure 74 mm[Hg] Shira Lopez MD Work Phone: [facility] 06-11-2022 09:40-0500 Heart rate 83 /min Shira Lopez MD Work Phone: [facility] 06-11-2022 09:40-0500 Respiratory rate 14 /min Shira Lopez MD Work Phone: [facility] 06-11-2022 09:40-0500 SaO2% (BldA) [Mass fraction] 96 % Shira Lopez MD Work Phone: [facility] 06-11-2022 09:40-0500 Systolic blood pressure 125 mm[Hg] Shira Lopez MD Work Phone: [facility] 06-10-2022 08:51-0500 Body height 180.3 cm Shira Lopez MD Work Phone: [facility] 06-10-2022 08:51-0500 Body mass index (BMI) [Ratio] 23.71 kg/m2 Shira Lopez MD Work Phone: [facility] 06-10-2022 08:51-0500 Body weight 77.11 kg Shira Lopez MD Work Phone: [facility] 06-06-2022 11:21-0500 Body height 179.7 cm Ying Quispe DO Work Phone: [facility] 06-06-2022 11:21-0500 Body mass index (BMI) [Ratio] 25.17 kg/m2 iYng Quispe DO Work Phone: [facility] 06-06-2022 11:21-0500 Body temperature 98.1 [degF] Ying Quispe DO Work Phone: [facility] 06-06-2022 11:21-0500 Body weight 81.28 kg Ying Quispe DO Work Phone: [facility] 06-06-2022 11:21-0500 Diastolic blood pressure 80 mm[Hg] Ying Quispe DO Work Phone: [facility] 06-06-2022 11:21-0500 Heart rate 80 /min Ying Quispe DO Work Phone: [facility] 06-06-2022 11:21-0500 Respiratory rate 16 /min Ying Quispe DO Work Phone: [facility] 06-06-2022 11:21-0500 Systolic blood pressure 130 mm[Hg] Ying Quispe DO Work Phone: [facility] 04-06-2022 11:17-0500 Body mass index (BMI) [Ratio] 25.06 kg/m2 Ying Qiuspe DO Work Phone: [facility] 04-06-2022 11:17-0500 Body temperature 98.49 [degF] Ying Quispe DO Work Phone: [facility] 04-06-2022 11:17-0500 Body weight 80.92 kg Ying Quispe DO Work Phone: [facility] 04-06-2022 11:17-0500 Diastolic blood pressure 76 mm[Hg] Ying Quispe DO Work Phone: [facility] 04-06-2022 11:17-0500 Heart rate 81 /min Ying Quispe DO Work Phone: [facility] 04-06-2022 11:17-0500 Respiratory rate 16 /min Ying Quispe DO Work Phone: [facility] 04-06-2022 11:17-0500 SaO2% (BldA) [Mass fraction] 96 % Ying Quispe DO Work Phone: [facility] 04-06-2022 11:17-0500 Systolic blood pressure 121 mm[Hg] Ying Quispe DO Work Phone: [facility] 01-05-2022 16:17-0400 Body height 179.7 cm Felicity Olson REGISTERED NURSE CARDIOVASCULAR ICU Work Phone: [facility] 01-05-2022 16:17-0400 Body mass index (BMI) [Ratio] 25.73 kg/m2 Felicity Olson REGISTERED NURSE CARDIOVASCULAR ICU Work Phone: [facility] 01-05-2022 16:17-0400 Body temperature 98.2 [degF] Felicity Olson REGISTERED NURSE CARDIOVASCULAR ICU Work Phone: [facility] 01-05-2022 16:17-0400 Body weight 83.1 kg Felicity Olson REGISTERED NURSE CARDIOVASCULAR ICU Work Phone: [facility] 01-05-2022 16:17-0400 Diastolic blood pressure 70 mm[Hg] Felicity Olson REGISTERED NURSE CARDIOVASCULAR ICU Work Phone: [facility] 01-05-2022 16:17-0400 Heart rate 80 /min Felicity Olson REGISTERED NURSE CARDIOVASCULAR ICU Work Phone: [facility] 01-05-2022 16:17-0400 Respiratory rate 16 /min Felicity Garciaker REGISTERED NURSE CARDIOVASCULAR ICU Work Phone: [facility] 01-05-2022 16:17-0400 Systolic blood pressure 126 mm[Hg] Felicity Olson REGISTERED NURSE CARDIOVASCULAR ICU Work Phone: [facility] 11-25-2021 16:10-0400 Body temperature 98.4 [degF] Yfn Puckett Jr., DPM Work Phone: [facility] 11-25-2021 16:10-0400 Diastolic blood pressure 82 mm[Hg] Yfn Puckett Jr., DPM Work Phone: [facility] 11-25-2021 16:10-0400 Heart rate 78 /min Yfn Puckett Jr., DPM Work Phone: [facility] 11-25-2021 16:10-0400 Systolic blood pressure 136 mm[Hg] Yfn Puckett Jr., DPM Work Phone: [facility] 11-18-2021 08:01-0400 Body height 179.7 cm Ying Quispe DO Work Phone: [facility] 11-18-2021 08:01-0400 Body mass index (BMI) [Ratio] 26.69 kg/m2 Ying Quispe DO Work Phone: [facility] 11-18-2021 08:01-0400 Body temperature 98.29 [degF] Ying Quispe DO Work Phone: [facility] 11-18-2021 08:01-0400 Body weight 86.18 kg Ying Quispe DO Work Phone: [facility] 11-18-2021 08:01-0400 Diastolic blood pressure 70 mm[Hg] Ying Quispe DO Work Phone: [facility] 11-18-2021 08:01-0400 Heart rate 66 /min Ying Quispe DO Work Phone: [facility] 11-18-2021 08:01-0400 Respiratory rate 16 /min Ying Quispe DO Work Phone: [facility] 11-18-2021 08:01-0400 Systolic blood pressure 138 mm[Hg] Ying Quispe DO Work Phone: [facility] 06-21-2021 14:44-0500 Body height 179.7 cm Ying Quispe DO Work Phone: [facility] 06-21-2021 14:44-0500 Body mass index (BMI) [Ratio] 26.21 kg/m2 Ying Quispe DO Work Phone: [facility] 06-21-2021 14:44-0500 Body temperature 98.6 [degF] Ying Quispe DO Work Phone: [facility] 06-21-2021 14:44-0500 Body weight 84.64 kg Ying Quispe DO Work Phone: [facility] 06-21-2021 14:44-0500 Diastolic blood pressure 80 mm[Hg] Ying Quispe DO Work Phone: [facility] 06-21-2021 14:44-0500 Heart rate 86 /min Ying Quispe DO Work Phone: [facility] 06-21-2021 14:44-0500 Respiratory rate 16 /min Ying Quispe DO Work Phone: [facility] 06-21-2021 14:44-0500 Systolic blood pressure 126 mm[Hg] Ying Chaffee DO Work Phone: [facility] 06-17-2021 16:11-0500 Body temperature 97.3 [degF] Yfn Puckett Jr., DPM Work Phone: [facility] 06-17-2021 16:11-0500 Diastolic blood pressure 84 mm[Hg] Yfn Puckett Jr., DPM Work Phone: [facility] 06-17-2021 16:11-0500 Heart rate 94 /min Yfn Blandmagdaleno Drake., DPM Work Phone: [facility] 06-17-2021 16:11-0500 Systolic blood pressure 135 mm[Hg] Yfn Danieldamian Drake., DPM Work Phone: [facility] 05-12-2021 09:36-0500 Body height 179.7 cm Ying Quispe DO Work Phone: [facility] 05-12-2021 09:36-0500 Body mass index (BMI) [Ratio] 25.45 kg/m2 Ying Mccurdywell DO Work Phone: [facility] 05-12-2021 09:36-0500 Body temperature 98.6 [degF] Ying Brittaney DO Work Phone: [facility] 05-12-2021 09:36-0500 Body weight 82.19 kg Ying Quispe DO Work Phone: [facility] 05-12-2021 09:36-0500 Diastolic blood pressure 53 mm[Hg] Ying Mccurdywell DO Work Phone: [facility] 05-12-2021 09:36-0500 Heart rate 78 /min Ying Mccurdywell DO Work Phone: [facility] 05-12-2021 09:36-0500 Respiratory rate 16 /min Ying Brittaney DO Work Phone: [facility] 05-12-2021 09:36-0500 Systolic blood pressure 93 mm[Hg] Ying Quispe DO Work Phone: [facility] 09-29-2020 13:32-0400 Diastolic blood pressure 85 mm[Hg] Bambi Huynh MD Work Phone: [facility] 09-29-2020 13:32-0400 Heart rate 74 /min Bambi Huynh MD Work Phone: [facility] 09-29-2020 13:32-0400 SaO2% (BldA) [Mass fraction] 93 % Bambi Huynh MD Work Phone: [facility] 09-29-2020 13:32-0400 Systolic blood pressure 138 mm[Hg] Bambi Huynh MD Work Phone: [facility] 09-29-2020 13:21-0400 Body height 182.9 cm Bambi Huynh MD Work Phone: [facility] 09-29-2020 13:21-0400 Body mass index (BMI) [Ratio] 26.65 kg/m2 Bambi Huynh MD Work Phone: [facility] 09-29-2020 13:21-0400 Body temperature 97.3 [degF] Bambi Huynh MD Work Phone: [facility] 09-29-2020 13:21-0400 Body weight 89.13 kg Bambi Huynh MD Work Phone: [facility] 12-06-2019 11:08-0400 BMI (Body Mass Index) 26.04 kg/m2 [facility] 12-06-2019 11:08-0400 Body Temperature 98.8 [degF] [facility] 12-06-2019 11:08-0400 Body weight 87.09 kg [facility] 12-06-2019 11:08-0400 Height 182.9 cm [facility] 12-06-2019 11:08-0400 Pulse (Heart Rate) 80 /min [facility] 12-06-2019 11:08-0400 Pulse Oximetry 96 % [facility] 12-06-2019 11:08-0400 Respiratory Rate 18 /min [facility] 03-25-2019 14:16-0400 BMI (Body Mass Index) 27.17 kg/m2 Bambi Huynh [facility] 03-25-2019 14:16-0400 Body Temperature 98.01 [degF] Bambi Claus [facility] 03-25-2019 14:16-0400 Body weight 90.86 kg Bambi Huynh [facility] 03-25-2019 14:16-0400 BP Diastolic 83 mm[Hg] [facility]-25-2019 14:16-0400 BP Systolic 135 mm[Hg] [facility] 03-25-2019 14:16-0400 Height 182.9 cm [facility] 03-25-2019 14:16-0400 Pulse (Heart Rate) 82 /min [facility] 03-25-2019 14:16-0400 Pulse Oximetry 98 % [facility] 03-25-2019 14:16-0400 Respiratory Rate 17 /min [facility] 01-14-2019 13:48-0400 BMI (Body Mass Index) 26.28 kg/m2 [facility] 01-14-2019 13:48-0400 Body Temperature 98.4 [degF] [facility] 01-14-2019 13:48-0400 Body weight 87.91 kg [facility] 01-14-2019 13:48-0400 BP Diastolic 76 mm[Hg] [facility] 01-14-2019 13:48-0400 BP Systolic 130 mm[Hg] [facility] 01-14-2019 13:48-0400 Pulse (Heart Rate) 75 /min [facility] 01-14-2019 13:48-0400 Pulse Oximetry 96 % [facility] 10-12-2018 15:25-0400 BMI (Body Mass Index) 26.62 kg/m2 [facility] 10-12-2018 15:25-0400 Body Temperature 97.81 [degF] [facility] 10-12-2018 15:25-0400 BP Diastolic 91 mm[Hg] [facility] 10-12-2018 15:25-0400 BP Systolic 168 mm[Hg] [facility] 10-12-2018 15:25-0400 Height 182.9 cm [facility] 10-12-2018 15:25-0400 Pulse (Heart Rate) 78 /min [facility] 10-12-2018 15:25-0400 Pulse Oximetry 98 % [facility] 10-12-2018 15:25-0400 Weight 89.04 kg [facility] 09-15-2018 11:11-0400 Body Temperature 97.59 [degF] Rosendo Tyson [facility] 09-15-2018 11:11-0400 BP Diastolic 79 mm[Hg] [facility] Erjeet Tyson [facility] 09-15-2018 11:11-0400 BP Systolic 133 mm[Hg] [facility] 11:11-0400 Pulse (Heart Rate) 61 /min [facility] 11:11-0400 Pulse [facility] 96 % [facility] 09-15-2018 11:11-0400 Respiratory Rate 16 /min [facility] 09-15-2018 01:32-0400 BMI (Body Mass Index) 26.76 kg/m2 [facility] 09-15-2018 01:32-0400 Height 182.9 cm [facility] 09-15-2018 01:32-0400 Weight 89.5 kg [facility] 09-14-2018 20:37-0400 Body Temperature 98.8 [degF] [facility] 09-14-2018 20:37-0400 BP Diastolic 83 mm[Hg] [facility] 09-14-2018 20:37-0400 BP Systolic 151 mm[Hg] [facility] 09-14-2018 20:37-0400 Pulse (Heart Rate) 82 /min [facility] 09-14-2018 20:37-0400 Pulse Oximetry 96 % [facility] 09-14-2018 20:37-0400 Respiratory Rate 20 /min [facility] 09-14-2018 17:33-0400 BMI (Body Mass Index) 26.45 kg/m2 [facility] 09-14-2018 17:33-0400 Height 182.9 cm [facility] 09-14-2018 17:33-0400 Weight 88.45 kg [facility] 09-14-2018 12:51-0400 BMI (Body Mass Index) 27 kg/m2 Bambi Huynh [facility] 09-14-2018 12:51-0400 Body Temperature 98.91 [degF] Bambi Huynh [facility] 09-14-2018 12:51-0400 BP Diastolic 86 mm[Hg] [facility] 09-14-2018 12:51-0400 BP Systolic 132 mm[Hg] [facility] 09-14-2018 12:51-0400 Height 182.9 cm [facility] 09-14-2018 12:51-0400 Pulse (Heart Rate) 94 /min [facility] 09-14-2018 12:51-0400 Pulse Oximetry 94 % [facility] 09-14-2018 12:51-0400 Weight 90.31 kg [facility] 2018 07:36-0500 BMI (Body Mass Index) 27.08 kg/m2 [facility] 2018 07:36-0500 Body Temperature 98.1 [degF] [facility] 2018 07:36-0500 BP Diastolic 79 mm[Hg] [facility] 2018 07:36-0500 BP Systolic 129 mm[Hg] [facility] 2018 07:36-0500 Height 182.9 cm [facility] 2018 07:36-0500 Pulse (Heart Rate) 79 /min [facility] 2018 07:36-0500 Pulse Oximetry 98 % [facility] 2018 07:36-0500 Weight 90.58 kg [facility] 09-05-2017 14:41-0400 BMI (Body Mass Index) 26.45 kg/m2 [facility] 09-05-2017 14:41-0400 Height 182.9 cm [facility] 09-05-2017 14:41-0400 Weight 88.45 kg [facility] 07-03-2017 07:48-0500 BMI (Body Mass Index) 26.89 kg/m2 [facility] Work Phone: 07-03-2017 07:48-0500 Body Temperature 98.1 [degF] [facility] Work Phone: 07-03-2017 07:48-0500 BP Diastolic 83 mm[Hg] [facility] Work Phone: 07-03-2017 07:48-0500 BP Systolic 149 mm[Hg] Bambi Huynh [facility] Work Phone: 07-03-2017 07:48-0500 Height 182.9 cm Bambi Huynh [facility] Work Phone: 07-03-2017 07:48-0500 Pulse (Heart Rate) 88 /min Bambi Huynh [facility] Work Phone: 07-03-2017 07:48-0500 Pulse Oximetry 98 % Bambi Huynh [facility] Work Phone: 07-03-2017 07:48-0500 Respiratory Rate 14 /min Bambi Huynh [facility] Work Phone: 07-03-2017 07:48-0500 Weight 89.95 kg Bambi Huynh [facility] Work Phone: Encounters Encounter Date Encounter Type Care Provider Facility Start: 11-12-2024 ambulatory Millie Gudla Facility:[facility] Start: 11-05-2024 ambulatory [facility] Facility:[facility] Start: 11-04-2024 ambulatory [facility] Facility:[facility] Start: 10-30-2024 ambulatory [facility] Facility:[facility] Start: 09-23-2024 Dr. Millie Massey MD [facility] Start: 09-23-2024 End: 09-23-2024 ambulatory Millie Gudla Facility:[facility] Start: 09-18-2024 End: 09-18-[address] Ethan Rodriguez MD Work Phone: [facility] Work Phone: Start: 09-18-2024 End: 09-18-2024 Dr. Millie Massey MD -[facility] Start: 09-18-2024 End: 09-18-2024 ambulatory Millie Gudla Facility:[facility] Start: 09-16-2024 End: 09-16-[address] Ethan Rodriguez MD Work Phone: [facility] Work Phone: Start: 09-16-2024 End: 09-16-2024 Dr. Millie Massey MD -[facility] Start: 09-16-2024 End: 09-16-2024 ambulatory [facility] Facility:[facility] Start: 09-15-2024 End: 09-15-2024 Dr. Ethan Rodriguez MD Work Phone: -Emergency Department Work Phone: Start: 09-15-2024 End: 09-15-2024 Emergency department patient visit Dr. Ethan oRdriguez MD Work Phone: [facility] Work Phone: Start: 09-09-2024 Dr. Millie Massey MD -[facility] Start: 09-09-2024 End: 09-09-2024 ambulatory [facility] Facility:[facility] Start: 09-02-2024 End: 09-02-2024 Dr. Millie Massey MD -[facility] Start: 09-02-2024 End: 09-02-2024 ambulatory [facility] Facility:[facility] Start: 08-31-2024 End: 08-31-2024 Millie Massey MD -Progressive Care Unit, Outpt Work Phone: Start: 08-31-2024 End: 08-31-[address] Ethan Rodriguez MD Work Phone: [facility] Work Phone: Start: 08-29-2024 ambulatory [facility] Facility:[facility] Start: 08-29-2024 Dr. Millie Massey MD [facility] Start: 08-28-2024 End: 08-28-[address] Ethan Rodriguez MD Work Phone: [facility] Work Phone: Start: 08-28-2024 End: 08-28-2024 Dr. Millie Massey MD [facility] Start: 08-28-2024 End: 08-28-2024 ambulatory Millie Gudla OLS Facility:[facility] Start: 08-26-2024 End: 08-26-[address] Ethan Rodriguez MD Work Phone: [facility] Work Phone: Start: 08-26-2024 End: 08-26-2024 Dr. Millie Massey MD [facility] Start: 08-26-2024 End: 08-26-2024 ambulatory Millie Gudla OLS Facility:[facility] Start: 08-23-2024 End: 08-23-2024 Documentation procedure Sol Huerta RN [facility] Start: 08-22-2024 End: 08-22-[address] Ethan Rodriguez MD Work Phone: [facility] Work Phone: Start: 08-22-2024 End: 08-22-2024 Dr. Millie Massey MD [facility] Start: 08-22-2024 End: 08-22-2024 ambulatory Millie Gudla OLS Facility:[facility] Start: 08-19-2024 ambulatory Millie Alydla OLS Facili ty:[facility] Start: 08-19-2024 Dr. Millie Massey MD [facility] Start: 08-17-2024 Dr. Nikolas Magaña MD [facility] Work Phone: Start: 08-16-2024 Dr. Nikolas Magaña MD [facility] Work Phone: Start: 08-15-2024 Dr. Tevin Nicholas MD -[facility] Start: 08-15-2024 End: 08-15-2024 ambulatory Casi Topete RN [facility] Start: 08-15-2024 Svetlana MOORE -[facility] Start: 08-14-2024 ambulatory Angie Torres Facil ity:[facility] Start: 08-14-2024 End: 08-17-2024 Evaluation and management of inpatient Dr. Ethan Rodriguez MD Work Phone: [facility] Work Phone: Start: 08-14-2024 End: 08-17-2024 Dr. Nikolas Magaña MD -[facility] Work Phone: Start: 08-14-2024 End: 08-14-2024 ambulatory Millieblanche Massey OLS Facility:[facility] Start: 08-13-2024 Dr. Nikolas Magaña MD -[facility] Work Phone: Start: 08-12-2024 Dr. Nikolas Magaña MD -[facility] Work Phone: Start: 08-11-2024 Dr. Judd Galvin DO [facility] Work Phone: Start: 08-10-2024 Dr. Judd Galvin DO [facility] Work Phone: Start: 08-09-2024 Dr. Judd Galvin DO [facility] Work Phone: Start: 08-08-2024 [facility] Start: 08-08-2024 Dr. Judd Galvin DO [facility] Work Phone: Start: 08-07-2024 Dr. Judd Galvin DO [facility] Work Phone: Start: 08-06-2024 [facility] Start: 08-06-2024 Dr. Judd Galvin DO [facility] Work Phone: Start: 08-05-2024 Dr. Ivone mccarty MD -[facility] Work Phone: Start: 08-04-2024 Dr. Ivone mccarty MD -[facility] Work Phone: Start: 08-03-2024 Dr. Mar chang MD -[facility] Work Phone: Start: 08-03-2024 Nick Friend DO -[facility] Start: 08-02-2024 Nick Friend DO -[facility] Start: 08-02-2024 Dr. Mar chang MD -[facility] Work Phone: Start: 08-01-2024 Nick Friend DO -[facility] Start: 08-01-2024 Dr. Kvng Watkins DO -[facility] Work Phone: Start: 07-31-2024 ambulatory Jaluis f Bellari Facil ity:[facility] Start: 07-31-2024 End: 08-13-2024 Evaluation and management of inpatient Kervin Melissa Facility:[facility] Start: 07-31-2024 End: 08-13-2024 Dr. Nikolas Magaña MD -[facility] Work Phone: Start: 07-30-2024 ambulatory Millie RENE Facili ty:[facility] Start: 07-30-2024 Dr. Millie Massey MD -[facility] Start: 07-29-2024 Dr. Mar chang MD -[facility] Work Phone: Start: 07-28-2024 Dr. Remedios Kessler DO -[facility] Work Phone: Start: 07-27-2024 Dr. Remedios Kessler DO -[facility] Work Phone: Start: 07-26-2024 Nick Friend DO -[facility] Start: 07-25-2024 Dr. Remedios Kessler DO -[facility] Work Phone: Start: 07-24-2024 Nick Friend DO -[facility] Start: 07-24-2024 Dr. Remedios Kessler DO -[facility] Work Phone: Start: 07-23-2024 Nick Friend DO -[facility] Start: 07-23-2024 ambulatory Judd Yangsupaearline Facility:[facility] Start: 07-23-2024 End: 07-29-2024 Evaluation and management of inpatient Angie Torres Facility:[facility] Start: 07-23-2024 End: 07-29-2024 Dr. Mar Mead MD -Medical Surgical 3 Work Phone: Start: 07-18-2024 End: 07-18-2024 Emergency department patient visit Sheldon Toribio Facility:[facility] Start: 07-18-2024 End: 07-18-2024 Dr. Sheldon Toribio MD -Emergency Departmen t Work Phone: Start: 07-18-2024 End: 07-18-2024 ambulatory Adilene Rainey Facility:[facility] Start: 07-03-2024 End: 07-03-2024 ambulatory Codie Garcia RN [facility] Comment on above: High Risk Outreach f or High Risk Start: 07-02-2024 End: 07-02-2024 ambulatory Codie Garcia RN [facility] Start: 06-25-2024 End: 06-25-2024 Dr. Millie Massey MD -[facility] Start: 06-24-2024 End: 06-25-2024 ambulatory Millie RENE Facility:[facility] Start: 06-24-2024 Dr. Millie Massey MD -[facility] Start: 06-21-2024 End: 06-21-2024 Dr. Millie Massey MD -[facility] Start: 06-21-2024 End: 06-21-2024 ambulatory Millie RENE Facility:[facility] Start: 06-18-2024 ambulatory EDENILSON LANTIGUA [facility] Start: 06-07-2024 End: 06-07-2024 Dr. Millie Massey MD -[facility] Start: 06-07-2024 End: 06-07-2024 ambulatory Millie RENE Facility:[facility] Start: 06-06-2024 End: 06-06-2024 Dr. Millie Massey MD -[facility] Start: 06-05-2024 End: 06-05-2024 Chioma BRIGGS -[facility] Work Phone: Start: 06-05-2024 End: 06-06-2024 ambulatory Millie RENE Facility:[facility] Start: 06-03-2024 End: 06-03-2024 Dr. Millie Massey MD -[facility] Start: 06-03-2024 End: 06-03-2024 ambulatory Millie RENE Facility:[facility] Start: 05-27-2024 End: 05-27-2024 Dr. Millie Massey MD -[facility] Start: 05-27-2024 End: 05-27-2024 ambulatory Millie RENE Facility:[facility] Start: 05-23-2024 End: 05-23-2024 Orders Only Edenilson Rhinagale Guerra DO Work Phone: [facility] Comment on above: Abdominal aortic ane urysm (AAA) without rupture, unspecified part (HCC) (Primary Dx) Start: 05-03-2024 ambulatory Jeffery Veloz Facility :[facility] Start: 04-30-2024 End: 04-30-2024 Dr. Jeffery Veloz MD -[facility] Work Phone: Start: 04-30-2024 End: 04-30-2024 ambulatory Ethan Rodriguez Facility:[facility] Start: 04-24-2024 ambulatory Ethan RENE Facili ty:[facility] Start: 04-24-2024 Ethan McgrathMoosejunior [facility] Start: 04-17-2024 ambulatory Angie Torres Facil ity:[facility] Start: 04-17-2024 End: 04-17-2024 Dr. Angie Torres MD -Laboratory, Specimen Work Phone: Start: 04-17-2024 End: 04-17-2024 ambulatory Ethan RENE Facility:[facility] Start: 04-12-2024 End: 04-12-2024 ambulatory Millie RENE Facility:[facility] Start: 04-11-2024 End: 04-11-2024 Emergency department patient visit Ethan Rodriguez Facility:[facility] Start: 04-05-2024 End: 04-05-2024 Documentation procedure Corrina Dawn MA [facility] Start: 04-05-2024 End: 04-05-2024 Refill Ying Quispe DO Work Phone: [facility] Start: 04-04-2024 End: 04-04-2024 Postop follow up visit related to original px Cate Contreras REGISTERED NURSE CARDIOVASCULAR ICU Work Phone: [facility] Comment on above: 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) (Primary Dx) Start: 04-04-2024 End: 04-04-2024 ambulatory YING SWEENEY [facility] Start: 03-26-2024 ambulatory Ethan RENE Facili ty:[facility] Start: 03-21-2024 ambulatory Ethan Ospinaelsen Facility:[facility] Start: 03-12-2024 End: 03-20-2024 Evaluation and management of inpatient YING [facility] Start: 03-11-2024 End: 03-12-2024 Emergency department patient visit Ethan Rodriguez Facility:[facility] Start: 02-29-2024 End: 02-29-2024 ambulatory Ethan RENE Facility:[facility] Start: 02-16-2024 End: 02-16-2024 Refill Ying Quispe DO Work Phone: [facility] Comment on above: Hypothyroidism, unsp ecified type Start: 01-19-2024 End: 02-25-2024 [facility] Start: 01-17-2024 End: 01-17-2024 Documentation procedure Rafaela Garcias RN [facility] Start: 01-11-2024 End: 01-11-2024 Documentation procedure Rafaela Garcias RN [facility] Start: 01-11-2024 ambulatory YING QUISPE [facility] Start: 01-09-2024 End: 01-09-2024 Postop follow up visit related to original px Sarath Rey MD Work Phone: [facility] Comment on above: 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) (Primary Dx) Start: 01-09-2024 End: 01-09-2024 ambulatory YING QUISPE [facility] Start: 01-09-2024 End: 01-09-2024 ambulatory SARATH REY [facility] Start: 01-08-2024 End: 01-08-2024 Refill Ray Guido RN [facility] Comment on above: Medication Refill 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) (Primary Dx); Elevated serum creatinine Start: 01-05-2024 End: 01-05-2024 Orders Only Ray Guido RN [facility] Comment on above: 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) (Primary Dx); Postoperative leak Start: 01-03-2024 End: 01-03-2024 Anticoagulant drug monitoring Michelle Littlejohn RPh,PharmD Work Phone: [facility] Start: 01-03-2024 End: 01-03-2024 Patient encounter procedure Lita Gu MD Work Phone: [facility] Comment on above: Acute deep vein thro mbosis (DVT) of axillary vein of left upper extremity (HCC) (Primary Dx) Start: 01-03-2024 End: 01-03-2024 Home visit Makenzie Garza RN [facility] Comment on above: SN HH NON-OASIS AGEN CY DISCHARGE Start: 01-03-2024 End: 01-08-2024 ambulatory LITA HILLWANATHAN [facility] Start: 01-02-2024 End: 01-02-2024 Home visit Makenzie Garza RN [facility] Comment on above: TELEPHONE ENCOUNTER Start: 12-27-2023 End: 12-27-2023 Anticoagulant drug monitoring Michelle Littlejohn RPh,PharmD Work Phone: [facility] Start: 12-27-2023 End: 12-27-2023 Patient encounter procedure Lita Gu MD Work Phone: [facility] Comment on above: Acute deep vein thro mbosis (DVT) of axillary vein of left upper extremity (HCC) (Primary Dx) Start: 12-27-2023 End: 12-28-2023 Home visit Nahid Lindsay PT [facility] Comment on above: PT NON-OASIS 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 Start: 12-27-2023 End: 12-31-2023 [facility] Start: 12-26-2023 End: 12-26-2023 Postop follow up visit related to original px Sarath Rey MD Work Phone: [facility] Comment on above: PVD (peripheral vasc ular disease) (HCC) (Primary Dx); 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); Renal insufficiency Start: 12-26-2023 End: 12-26-2023 ambulatory SARATH REY [facility] Start: 12-25-2023 End: 12-25-2023 Home visit Nahid Wheeler [facility] Comment on above: SET STAFF FITTER ROUTINE VISIT Start: 12-21-2023 End: 12-25-2023 Transcribe Orders Michelle Littlejohn [facility],PharmD Work Phone: [facility] Comment on above: Acute deep vein thro mbosis (DVT) of axillary vein of left upper extremity (HCC) (Primary Dx) Start: 12-20-2023 End: 12-20-2023 Home visit Adilene Albright [facility] Comment on above: 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 SET STAFF FITTER ROUTINE VISIT Start: 12-20-2023 ambulatory YING SWEENEY [facility] Start: 12-18-2023 End: 12-18-2023 Home visit Ernestina Moody [facility] Comment on above: SET STAFF FITTER ROUTINE VISIT Start: 12-14-2023 End: 12-14-2023 Home visit Ernestina Moody [facility] Comment on above: SET STAFF FITTER ROUTINE VISIT Start: 12-13-2023 End: 12-13-2023 Anticoagulant drug monitoring Michelle Littlejohn RP,PharmD Work Phone: [facility] Start: 12-13-2023 End: 12-13-2023 Patient encounter procedure Lita Gu MD Work Phone: [facility] Comment on above: Acute deep vein thro mbosis (DVT) of axillary vein of left upper extremity (HCC) (Primary Dx) Start: 12-13-2023 End: 12-13-2023 Home visit Makenzie Garza [facility] Comment on above: SN ROUTINE VISIT [facility] ROUTINE VISIT Start: 12-13-2023 End: 12-17-2023 ambulatory YING QUISPE [facility] Start: 12-11-2023 End: 12-11-2023 ambulatory TYLOR KRUGER [facility] Start: 12-10-2023 End: 12-10-2023 Home visit Ernestina Moody [facility] Comment on above: CASE COMMUNICATION Start: 12-06-2023 End: 12-10-2023 Refill Tylor Kruger MD Work Phone: [facility] Comment on above: Medication Refill Acute deep vein thro mbosis (DVT) of axillary vein of left upper extremity (HCC) (Primary Dx) [facility] ROUTINE VISIT PT REASSESSMENT Start: 12-05-2023 End: 12-05-2023 Home visit Ernestina Moody [facility] Comment on above: SET STAFF FITTER ROUTINE VISIT Start: 11-29-2023 End: 11-29-2023 Anticoagulant drug monitoring Adilene Bryan RPh,PharmD Work Phone: [facility] Start: 11-29-2023 End: 11-29-2023 Patient encounter procedure Lita Gu MD Work Phone: [facility] Comment on above: Acute deep vein thro mbosis (DVT) of axillary vein of left upper extremity (HCC) (Primary Dx) Start: 11-29-2023 End: 11-29-2023 Home visit Ernestina Moody [facility] Comment on above: SET STAFF FITTER ROUTINE VISIT [facility] ROUTINE OT NON-OASIS/DISCIPL INE DISCHARGE Start: 11-29-2023 End: 12-03-2023 ambulatory ADILENE R [facility] Start: 11-28-2023 End: 11-28-2023 ambulatory [facility] Start: 11-28-2023 End: 11-28-2023 Home visit Ernestina Moody SET STAFF FITTER [facility] Comment on above: SET STAFF FITTER ROUTINE VISIT Start: 11-27-2023 End: 11-27-2023 [facility] on above[facility] COLEMAN ROUTINE VISIT Start: 11-24-2023 End: 11-24-2023 [facility] Comment on above: COLEMAN ROUTINE VISIT Start: 11-23-2023 End: 11-23-2023 [facility] Comment on above: Orthostatic hypotens ion (Primary Dx); General weakness Start: 11-23-2023 End: 11-23-2023 ambulatory YINGSAM SWEENEY [facility] Start: 11-23-2023 End: 11-23-2023 [facility] Comment on above: COLEMAN ROUTINE VISIT SET STAFF FITTER ROUTINE VISIT Start: 11-22-2023 End: 11-22-2023 Office outpatient visit 15 minutes [facility] Work Phone: [facility] Comment on above: Ischemia of toe (Vikki farrukh Dx); PVD (peripheral vascular disease) (HCC) Start: 11-22-2023 End: 11-22-2023 ambulatory [facility] Start: 11-21-2023 End: 11-25-2023 Orders Only Tylor Kruger MD Work Phone: [facility] Comment on above: PVD (peripheral vasc ular disease) (HCC) (Primary Dx) Acute deep vein thro mbosis (DVT) of axillary vein of left upper extremity (HCC) (Primary Dx) 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 SET STAFF FITTER ROUTINE VISIT Start: 11-20-2023 End: 11-20-2023 Refill Ying Quispe DO Work Phone: [facility] Start: 11-17-2023 End: 11-17-2023 Home visit Giovany Kanez [facility] Comment on above: COLEMAN ROUTINE VISIT Start: 11-17-2023 End: 11-17-2023 Office outpatient visit 25 minutes Tylor Kruger MD Work Phone: [facility] Comment on above: 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) (Primary Dx); PVD (peripheral vascular disease) (HCC) Start: 11-17-2023 End: 11-20-2023 ambulatory TYLOR KRUGER [facility] Start: 11-16-2023 End: 11-16-2023 [facility] Comment on above: SET STAFF FITTER ROUTINE VISIT Start: 11-16-2023 End: 11-16-2023 ambulatory TYLOR KRUGER [facility] Start: 11-14-2023 End: 11-14-2023 Anticoagulant drug monitoring Adilene Bryan RPh,PharmD Work Phone: [facility] Start: 11-14-2023 End: 11-14-2023 Patient encounter procedure Lita Gu MD Work Phone: [facility] Comment on above: Acute deep vein thro mbosis (DVT) of axillary vein of left upper extremity (HCC) (Primary Dx) Start: 11-14-2023 End: 11-14-2023 [facility] Comment on above: 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 PT INITIAL EVALUATIO N Start: 11-14-2023 End: 11-18-2023 ambulatory ADILENE BRYAN [facility] Start: 11-13-2023 End: 11-13-2023 Home visit Giovany Montalvo [facility] Comment on above: COLEMAN ROUTINE VISIT Start: 11-08-2023 End: 11-08-2023 Anticoagulant drug monitoring Michelle Littlejohn RPh,PharmD Work Phone: [facility] Start: 11-08-2023 End: 11-08-2023 Patient encounter procedure Lita Gu MD Work Phone: [facility] Comment on above: Acute deep vein thro mbosis (DVT) of axillary vein of left upper extremity (HCC) (Primary Dx) Start: 11-08-2023 End: 11-12-2023 [facility] Start: 11-08-2023 End: 11-08-2023 [facility] ROUTINE OT INITIAL EVALUATIO N Start: 11-06-2023 End: 11-06-2023 Home visit Makenzie Garza RN [facility] Comment on above: SN HH NON-OASIS SOC Start: 11-06-2023 ambulatory LITA GU [facility] Start: 11-03-2023 Documentation procedure Rafaela Garcias RN [facility] Start: 11-03-2023 Home visit Justine Kruger [facility] Comment on above: CASE COMMUNICATION Start: 11-02-2023 ambulatory BRONWYN MARTINS [facility] Comment on above: Hypertension, unspec ified type (Primary Dx); Orthostatic hypotension; TUTU (acute kidney injury) (HCC); Debility; Ruptured abdominal aortic aneurysm (AAA), unspecified part (HCC); Aftercare following surgery of the circulatory system Start: 11-01-2023 End: 11-01-2023 Postop follow up visit related to original px Cate Contreras CNP Work Phone: [facility] Comment on above: 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) (Primary Dx) Start: 11-01-2023 End: 11-01-2023 ambulatory CATE CONTRERAS [facility] Start: 11-01-2023 End: 01-03-2024 ambulatory PCP UNKNOWN PHYSICIAN [facility] Start: 10-31-2023 ambulatory PCP UNKNOWN PHYSICIAN [facility] Start: 10-30-2023 ambulatory PCP UNKNOWN PHYSICIAN [facility] Start: 10-29-2023 ambulatory PCP UNKNOWN PHYSICIAN [facility] Start: 10-29-2023 ambulatory PCP UNKNOWN PHYSICIAN [facility] Start: 10-28-2023 [facility] Start: 10-27-2023 ambulatory BRONWYN N GREER [facility] Start: 10-26-2023 ambulatory PCP UNKNOWN PHYSICIAN [facility] Start: 10-25-2023 ambulatory PCP UNKNOWN PHYSICIAN [facility] Start: 10-25-2023 [facility] Start: 10-24-2023 ambulatory BRONWYN N GREER [facility] Start: 10-23-2023 ambulatory [facility] Start: 10-23-2023 Encounter for genera l adult medical examination without abnormal findings FRANK~[id number] ALLEN MARIE [facility] Start: 10-21-2023 ambulatory PCP UNKNOWN PHYSICIAN [facility] Start: 10-11-2023 Documentation procedure Yakelin Iqbal MA [facility] Comment on above: Ruptured abdominal a ortic aneurysm (AAA), unspecified part (HCC) (Primary Dx) Start: 10-09-2023 End: 10-20-2023 Evaluation and management of inpatient [facility] Start: 10-09-2023 End: 10-09-2023 Emergency department patient visit IZABELLA [facility] Start: 10-09-2023 End: 10-09-2023 ambulatory THERESA MCGOWAN [facility] Start: 10-09-2023 ambulatory YING QUISPE [facility] Start: 09-28-2023 Refill Ying Pascual rwell DO Work Phone: [facility] Comment on above: Hypothyroidism, unsp ecified type Start: 09-26-2023 End: 09-26-2023 Office outpatient visit 15 minutes Felicity Olson REGISTERED NURSE CARDIOVASCULAR ICU Work Phone: [facility] Comment on above: Acute right-sided lo w back pain without sciatica (Primary Dx) Start: 09-26-2023 End: 09-26-2023 ambulatory FELICITY OLSON [facility] Start: 09-07-2023 End: 09-07-2023 Anticoagulant drug monitoring Michelle Littlejohn RPh,PharmD Work Phone: [facility] Start: 09-07-2023 End: 09-07-2023 Patient encounter procedure Lita Gu MD Work Phone: [facility] Comment on above: Acute deep vein thro mbosis (DVT) of axillary vein of left upper extremity (HCC) (Primary Dx) Start: 09-07-2023 End: 09-11-2023 ambulatory [facility] Start: 08-24-2023 End: 08-24-2023 Office outpatient new 30 minutes Yfn Puckett DPM Work Phone: [facility] Comment on above: Weakness of right lo wer extremity (Primary Dx); Lumbosacral radiculopathy; Paresthesias Start: 08-24-2023 End: 08-24-2023 ambulatory THERESA BOYKIN [facility] Start: 08-10-2023 End: 08-10-2023 Anticoagulant drug monitoring Michelle Littlejohn RPh,PharmD Work Phone: [facility] Start: 08-10-2023 End: 08-10-2023 Patient encounter procedure Lita Gu MD Work Phone: [facility] Comment on above: Acute deep vein thro mbosis (DVT) of axillary vein of left upper extremity (HCC) (Primary Dx) Start: 08-10-2023 End: 08-14-2023 ambulatory [facility] Start: 07-18-2023 End: 07-18-2023 Office outpatient visit 25 minutes Yfn Puckett DPRosie Work Phone: [facility] Comment on above: Lumbosacral radiculo yanna (Primary Dx) Start: 2023 End: 2023 ambulatory YFN PUCKETT JR. [facility] Start: 07-13-2023 End: 07-13-2023 Anticoagulant drug monitoring Justine Hodges RPh,PharmD Work Phone: [facility] Start: 07-13-2023 End: 07-13-2023 Patient encounter procedure Lita Gu MD Work Phone: [facility] Comment on above: Acute deep vein thro mbosis (DVT) of axillary vein of left upper extremity (HCC) (Primary Dx) Start: 07-13-2023 End: 2023 ambulatory LITA BRITTANIE [facility] Start: 07-04-2023 End: 07-04-2023 ambulatory YFN PUCKETT JR. [facility] Start: 07-04-2023 End: 07-04-2023 Office outpatient new 30 minutes Yfn Puckett DPM Work Phone: [facility] Comment on above: Right-sided low back pain with right-sided sciatica, unspecified chronicity (Primary Dx); Idiopathic peripheral neuropathy Start: 06-19-2023 Refill Stephanie Lozano RN [facility] Comment on above: History of deep veno us thrombosis Start: 06-07-2023 End: 06-07-2023 Anticoagulant drug monitoring Adilene Bryan RPh,PharmD Work Phone: [facility] Start: 06-07-2023 End: 06-07-2023 Patient encounter procedure Lita Gu MD Work Phone: [facility] Comment on above: Acute deep vein thro mbosis (DVT) of axillary vein of left upper extremity (HCC) (Primary Dx) Start: 05-23-2023 Refill Kenna Vigil RN [facility] Comment on above: History of deep veno us thrombosis Start: 05-03-2023 End: 05-03-2023 Anticoagulant drug monitoring Adilene Bryan RPh,PharmD Work Phone: [facility] Start: 05-03-2023 End: 05-03-2023 Patient encounter procedure Lita Gu MD Work Phone: [facility] Comment on above: Acute deep vein thro mbosis (DVT) of axillary vein of left upper extremity (HCC) (Primary Dx) Start: 04-24-2023 End: 04-24-2023 Office outpatient visit 15 minutes Ying Quispe DO Work Phone: [facility] Comment on above: Hypothyroidism, unsp ecified type (Primary Dx) Start: 04-05-2023 End: 04-05-2023 Anticoagulant drug monitoring Michelle Littlejohn RPh,PharmD Work Phone: [facility] Start: 04-05-2023 End: 04-05-2023 Patient encounter procedure Lita Gu MD Work Phone: [facility] Comment on above: Acute deep vein thro mbosis (DVT) of axillary vein of left upper extremity (HCC) (Primary Dx) Start: 03-08-2023 End: 03-08-2023 Anticoagulant drug monitoring Michelle Littlejohn RPh,PharmD Work Phone: [facility] Start: 03-08-2023 End: 03-08-2023 Patient encounter procedure Lita Gu MD Work Phone: [facility] Comment on above: Acute deep vein thro mbosis (DVT) of axillary vein of left upper extremity (HCC) (Primary Dx) Start: 02-15-2023 End: 02-15-2023 Anticoagulant drug monitoring Adilene Bryan RPh,PharmD Work Phone: [facility] Start: 02-15-2023 End: 02-15-2023 Patient encounter procedure Lita Gu MD Work Phone: [facility] Comment on above: Acute deep vein thro mbosis (DVT) of axillary vein of left upper extremity (HCC) (Primary Dx) Start: 02-13-2023 End: 02-13-2023 ambulatory YING QUISPE [facility] Start: 02-01-2023 End: 02-01-2023 Anticoagulant drug monitoring Michelle Littlejohn RPh,PharmD Work Phone: [facility] Start: 02-01-2023 End: 02-01-2023 Patient encounter procedure Lita Gu MD Work Phone: [facility] Comment on above: Acute deep vein thro mbosis (DVT) of axillary vein of left upper extremity (HCC) (Primary Dx) Start: 01-25-2023 End: 01-25-2023 Office outpatient visit 25 minutes Ying Zahra Brittaney GARCIA Work Phone: [facility] Comment on above: Hypothyroidism, unsp ecified type (Primary Dx); Familial hypercholesteremia; Encounter for screening mammogram for malignant neoplasm of breast Start: 01-16-2023 End: 01-16-2023 Anticoagulant drug monitoring Lavon Mcmullen RP,PharmD Work Phone: [facility] Start: 01-16-2023 End: 01-16-2023 Patient encounter procedure Lita Gu MD Work Phone: [facility] Comment on above: Acute deep vein thro mbosis (DVT) of axillary vein of left upper extremity (HCC) (Primary Dx) Start: 01-09-2023 End: 01-09-2023 Anticoagulant drug monitoring Adilene Bryan [facility],PharmD Work Phone: [facility] Start: 01-09-2023 End: 01-09-2023 Patient encounter procedure Lita Gu MD Work Phone: [facility] Comment on above: Acute deep vein thro mbosis (DVT) of axillary vein of left upper extremity (HCC) (Primary Dx) Start: 01-02-2023 End: 01-02-2023 Anticoagulant drug monitoring Michelle Littlejohn [facility],PharmD Work Phone: [facility] Start: 01-02-2023 End: 01-02-2023 Patient encounter procedure Lita Gu MD Work Phone: [facility] Comment on above: Acute deep vein thro mbosis (DVT) of axillary vein of left upper extremity (HCC) (Primary Dx) Start: 12-26-2022 End: 12-26-2022 Anticoagulant drug monitoring Adilene Bryan RP,PharmD Work Phone: [facility] Start: 12-26-2022 End: 12-26-2022 Patient encounter procedure Lita Gu MD Work Phone: [facility] Comment on above: Acute deep vein thro mbosis (DVT) of axillary vein of left upper extremity (HCC) (Primary Dx) Start: 12-19-2022 End: 12-19-2022 Anticoagulant drug monitoring Michelle Littlejohn RP,PharmD Work Phone: [facility] Start: 12-19-2022 End: 12-19-2022 Patient encounter procedure Lita Gu MD Work Phone: [facility] Comment on above: Acute deep vein thro mbosis (DVT) of axillary vein of left upper extremity (HCC) (Primary Dx) Start: 12-12-2022 Refill Kenna Vigil RN [facility] Comment on above: History of deep veno us thrombosis (Primary Dx) Start: 12-12-2022 End: 12-12-2022 Office outpatient visit 25 minutes Lita Gu MD Work Phone: [facility] Comment on above: History of deep veno us thrombosis (Primary Dx); Reactive lymphadenopathy; Factor V Leiden mutation (HCC) Start: 12-01-2022 End: 12-01-2022 Clinical Support Jennifer Hernandez MA [facility] Comment on above: Hyperlipidemia, unsp ecified hyperlipidemia type [E78.5] (Primary Dx) Start: 11-28-2022 End: 11-28-2022 Office outpatient visit 25 minutes Ying Quispe DO Work Phone: [facility] Comment on above: Acute non-recurrent maxillary sinusitis (Primary Dx); Familial hypercholesteremia Start: 10-25-2022 End: 10-25-2022 Office outpatient visit 25 minutes Lita Gu MD Work Phone: [facility] Comment on above: History of deep veno us thrombosis (Primary Dx); Axillary lymphadenopathy; Factor V Leiden mutation (HCC) Start: 10-23-2022 Refill Ying barber DO Work Phone: [facility] Comment on above: Hypothyroidism, unsp ecified type Start: 09-27-2022 Refill Kenna Vigil RN [facility] Comment on above: Acute deep vein thro mbosis (DVT) of axillary vein of left upper extremity (HCC) Start: 09-27-2022 End: 09-27-2022 Office outpatient visit 25 minutes Lita Gu MD Work Phone: [facility] Comment on above: History of deep veno us thrombosis (Primary Dx); Current smoker; Transaminitis; Factor V Leiden mutation (HCC); Lymphadenopathy; Decreased muscle strength; Lung nodule seen on imaging study Start: 09-20-2022 Coordination of care plan Amalia barbosa Patient Navigator Start: 09-16-2022 Refill Kenna Vigil RN [facility] Comment on above: Acute deep vein thro mbosis (DVT) of axillary vein of left upper extremity (HCC) Start: 08-15-2022 End: 08-15-2022 Office outpatient visit 25 minutes Ying Quispe DO Work Phone: [facility] Comment on above: Acute deep vein thro mbosis (DVT) of axillary vein of left upper extremity (HCC) (Primary Dx) Start: 07-06-2022 End: 07-06-2022 Office consultation new/estab patient 60 min Ying Quispe DO Work Phone: [facility] Comment on above: Current smoker (Prim howard Dx); Acute deep vein thrombosis (DVT) of axillary vein of left upper extremity (HCC); Cigarette smoker; Screening for malignant neoplasm of respiratory organ Start: 06-13-2022 End: 06-13-2022 Office outpatient visit 25 minutes Ying Quispe DO Work Phone: [facility] Comment on above: Acute deep vein thro mbosis (DVT) of axillary vein of left upper extremity (HCC) (Primary Dx) Start: 06-10-2022 End: 06-11-2022 Emergency department patient visit Shira Lopez MD Work Phone: [facility] Start: 06-06-2022 End: 06-06-2022 Office outpatient visit 25 minutes Ynig Quispe DO Work Phone: [facility] Comment on above: Raynaud's phenomenon without gangrene (Primary Dx); Hypothyroidism, unspecified type Start: 04-06-2022 End: 04-06-2022 Office outpatient visit 15 minutes Ying Quispe DO Work Phone: [facility] Comment on above: Acute non-recurrent maxillary sinusitis (Primary Dx) Start: 01-05-2022 End: 01-05-2022 Office outpatient visit 15 minutes Felicity Olson CNP Work Phone: [facility] Comment on above: Toe infection (Prima ry Dx) Start: 11-25-2021 End: 11-25-2021 Office outpatient visit 15 minutes Yfn Puckett DPM Work Phone: [facility] Comment on above: Idiopathic periphera l neuropathy (Primary Dx) Start: 11-18-2021 End: 11-18-2021 Patient encounter status Ying Quispe DO Work Phone: [facility] Start: 11-18-2021 End: 11-18-2021 Periodic preventive med est patient 40-64yrs Ying Quispe DO Work Phone: [facility] Comment on above: Routine general medi cherrie examination at a health care facility (Primary Dx); Post-menopause; Encounter for screening mammogram for malignant neoplasm of breast; Colon cancer screening; Hypothyroidism, unspecified type Start: 11-05-2021 Refill Ying barber DO Work Phone: [facility] Comment on above: Hypothyroidism, unsp ecified type Start: 06-21-2021 End: 06-21-2021 Office outpatient visit 25 minutes Ying Zahra Quispe DO Work Phone: [facility] Comment on above: Acute non-recurrent maxillary sinusitis (Primary Dx) Start: 06-17-2021 End: 06-17-2021 Office outpatient new 30 minutes Yfn Danieln DPM Work Phone: [facility] Comment on above: Ganglion cyst of lef t foot (Primary Dx); Plantar fascial fibromatosis of left foot; Plantar keratosis, acquired Start: 05-12-2021 End: 05-12-2021 Office outpatient visit 25 minutes Ying Quispe DO Work Phone: [facility] Comment on above: Hypothyroidism, unsp ecified type (Primary Dx); Hyperlipidemia, unspecified hyperlipidemia type Start: 09-29-2020 End: 09-29-2020 Office outpatient visit 25 minutes Bambi Huynh MD Work Phone: [facility] Comment on above: Hypothyroidism, unsp ecified type (Primary Dx); Hip pain Start: 09-28-2020 End: 09-28-2020 Orders Only Bambi Huynh MD Work Phone: [facility] Comment on above: Hypothyroidism, unsp ecified type (Primary Dx) Start: 08-12-2020 End: 08-12-2020 Orders Only Daisy Cosme Work Phone: [facility] Start: 07-29-2020 Refill Bambi Huynh MD Work Phone: [facility] Start: 12-06-2019 End: 12-06-2019 Patient encounter procedure BAMBI HUYNH [facility] Start: 12-06-2019 End: 12-06-2019 Office outpatient visit 25 minutes Rebeca Kaur Work Phone: [facility] [place] Comment on above: Close Exposure to Co vid-19 Virus (Primary Dx); Cough; Wheezing; Cigarette Smoker; Upper respiratory tract infection, unspecified type Start: 05-01-2019 End: 05-01-2019 Patient encounter procedure Bambi Maresinger Work Phone: [facility] Comment on above: Bilateral hip pain Start: 04-29-2019 End: 04-29-2019 Patient encounter procedure Bambi Huynh Work Phone: [facility] Comment on above: Bilateral hip pain Start: 04-24-2019 End: 04-24-2019 Patient encounter procedure Bambi Huynh Work Phone: [facility] Comment on above: Bilateral hip pain Start: 04-22-2019 End: 04-22-2019 Patient encounter procedure Bambi Maresinger Work Phone: [facility] Comment on above: Bilateral hip pain Start: 04-17-2019 End: 04-17-2019 Patient encounter procedure Bambi Nazario Huynh Work Phone: [facility] Comment on above: Bilateral hip pain Start: 04-15-2019 End: 04-15-2019 Patient encounter procedure Bambi Huynh Work Phone: [facility] Comment on above: Bilateral hip pain Start: 04-08-2019 End: 04-08-2019 Patient encounter procedure Bambi Huynh Work Phone: [facility] Comment on above: Hip pain, bilateral; Bilateral hip pain Start: 03-25-2019 End: 03-25-2019 Office outpatient visit 15 minutes Bambi Huynh Work Phone: [facility] Comment on above: Hypothyroidism, unsp ecified type (Primary Dx); Hip pain, bilateral Start: 01-14-2019 End: 01-14-2019 Office outpatient visit 25 minutes Bambi Huynh Work Phone: [facility] Comment on above: Hypothyroidism, unsp ecified type (Primary Dx); Hyperlipidemia, unspecified hyperlipidemia type; Hip pain, bilateral Start: 11-06-2018 End: 11-06-2018 Postop follow up visit related to original px Mendez Roy Work Phone: [facility] Comment on above: Trochanteric bursiti s of right hip (Primary Dx) Start: 10-12-2018 End: 10-12-2018 Postop follow up visit related to original px Татьяна Jenkins Work Phone: [facility] Comment on above: S/P appendectomy (Pr imary Dx) Start: 09-14-2018 End: 09-15-2018 Emergency department patient visit Rosendo Tyson Work Phone: [facility] Comment on above: Acute appendicitis, unspecified acute appendicitis type (Primary Dx); Acute appendicitis with localized peritonitis and gangrene, without perforation or abscess Start: 09-14-2018 End: 09-14-2018 Emergency department patient visit Dewayne Barlow Work Phone: [facility] Comment on above: Acute appendicitis, unspecified acute appendicitis type (Primary Dx) Start: 09-14-2018 End: 09-14-2018 Documentation procedure Bambi Huynh Work Phone: [facility] Start: 09-14-2018 End: 09-14-2018 Office outpatient visit 25 minutes Bambi Huynh Work Phone: [facility] Comment on above: Right lower quadrant abdominal pain (Primary Dx); Dysuria Start: 2018 End: 2018 Office outpatient visit 25 minutes Bambi Huynh Work Phone: [facility] Comment on above: Chronic left hip mehrdad n (Primary Dx); Hypothyroidism, unspecified type; Hyperlipidemia, unspecified hyperlipidemia type Start: 09-28-2017 Ambulatory Bambi Huynh Facility:[place] Start: 09-28-2017 End: 09-28-2017 Ambulatory Bambi Huynh Work Phone: [facility] Start: 09-05-2017 Office/outpatient piyush lay, level 3 Bambi Huynh Work Phone: [facility] Start: 07-20-2017 Ambulatory Cuauhtemoc Barrios Work Phone: [facility] Start: 07-03-2017 Office/outpatient vi sit, est, level 3 Bambi Nazario Huynh Work Phone: [facility] Procedures Date [...] MD Work Phone: Start: 08-15-[address] Etahn Rodrigeuz MD Work Phone: Start: 08-15-2024 Blood count [...] reported as:POSITIVE Performed By: #### B RC, [id number], BTS, BtABORH, [id number] ####[facility] [id number] [place], [address] Start: 08-08-2024 Computed tomography of abdomen and [...] PHYSICIAN Comment on above: Performed By: #### [id number] #### [facility] [address] [place] [address] Start: 09-07-2023 Prothrombin time Lita Gu MD [...] MD Work Phone: Start: 02-13-2023 Mammography Adilene Irvin [facility],PharmD Work Phone: Start: 02-01-2023 Prothrombin time Lita [...] MD Work Phone: Start: 06-10-2022 Electrocardiogram [facility] Work Phone: Start: 06-10-2022 Thromboplastin time partial plasma/whole blood Adia Rodriguez MD Work Phone: Start: 06-10-2022 Blood count complete automated Bambi Whyte PA-C Work Phone: Start: 06-10-2022 Radiologic exam chest single view Naeem ROBLEROC Work Phone: Start: 06-10-2022 Ct head/brain w/o [...] Work Phone: Start: 12-07-2021 Mammography Felicity Olson CNP Work Phone: Start: 11-19-2021 Lipid 1996 panel - Serum or Plasma Debbie Puckett Jr., ROXANNE Work Phone: Start: 06-17-2021 Radex foot complete [...] blood count with white cell differential, manual Princeniharika Barlow Work Phone: Start: 07-04-2016 Mammography Bambi Huynh Plan of Treatment Date Care Activity Detail Author Start: 03-19-2025 Urine screening for protein eGFR - Kidney Disease [facility] Start: 12-20-2024 Screening for malignant neoplasm of colon [facility] Start: 09-15-2024 [facility] Start: 09-15-2024 [facility] Start: 08-31-2024 Oxygen therapy [facility] Start: 08-31-2024 Administration of blood product [facility] Start: 08-31-2024 [facility] Start: 08-31-2024 Following clinical pathway protocol [facility] Start: 08-31-2024 Transfusion of blood product [facility] Start: 08-17-2024 Patient discharge [facility] Start: 08-16-2024 [facility] Start: 08-16-2024 Hemodialysis care [facility] Start: 08-15-2024 Anaerobic microbial culture [facility] Start: 08-15-2024 End: 08-15-2024 [facility] Start: 08-15-2024 Care of hemodialysis equipment [facility] Start: 08-15-2024 Wound care [facility] Start: 08-15-2024 End: 08-15-2024 Microbial culture, body fluid [facility] Start: 08-15-2024 Vital signs measurements [facility] Start: 08-15-2024 Ultrasonic guidance for thoracentesis [facility] Start: 08-14-2024 Application of intermittent pneumatic compression device [facility] Start: 08-14-2024 Care regimes management [facility] Start: 08-14-2024 Notification of physician [facility] Start: 08-14-2024 End: 08-14-2024 [facility] Start: 08-14-2024 Blood culture [facility] Start: 08-14-2024 Urine culture [facility] Start: 08-14-2024 Dialysis care [facility] Start: 08-14-2024 Following clinical pathway protocol [facility] Start: 08-14-2024 Care of hemodialysis equipment [facility] Start: 08-14-2024 Ambulation without limitation [facility] Start: 08-14-2024 Application of elastic bandage [facility] Start: 08-14-2024 Assessment of risk of venous thromboembolism [facility] Start: 08-14-2024 Elevation of affected extremity [facility] Start: 08-14-2024 Insertion of catheter into peripheral vein [facility] Start: 08-14-2024 Measuring intake and output [facility] Start: 08-14-2024 Notification of physician [facility] Start: 08-14-2024 Oxygen therapy [facility] Start: 08-14-2024 Patient education [facility] Start: 08-14-2024 Providing care according to standard [facility] Start: 08-14-2024 Referral to occupational therapist [facility] Start: 08-14-2024 Referral to service [facility] Start: 08-14-2024 Speech therapy assessment [facility] Start: 08-14-2024 Hemodialysis care [facility] Start: 08-14-2024 End: 08-14-2024 [facility] Start: 08-14-2024 Cell count and Differential panel - Body fluid [facility] Start: 08-14-2024 Glucose measurement, body fluid [facility] Start: 08-14-2024 Lactate dehydrogenase [Enzymatic activity/volume] in Body fluid by Pyruvate to lactate reaction [facility] Start: 08-14-2024 Microbial culture, body fluid [facility] Start: 08-14-2024 Microscopic observation [Identifier] in Body fluid by Cyto stain [facility] Start: 08-14-2024 Protein [Mass/volume] in Body fluid [facility] Start: 08-14-2024 Verification routine [facility] Start: 08-14-2024 Admission procedure [facility] Start: 08-14-2024 Referral to benzol operator [facility] Start: 08-14-2024 Hospital admission, emergency, from emergency room, medical nature [facility] Start: 08-14-2024 [facility] Start: 08-14-2024 End: 08-14-2024 [facility] Start: 08-14-2024 Patient referral to dietitian [facility] Start: 08-13-2024 End: 08-13-2024 [facility] Start: 08-13-2024 Care of hemodialysis equipment [facility] Start: 08-13-2024 Patient discharge [facility] Start: 08-12-2024 Care regimes management [facility] Start: 08-12-2024 Notification of physician [facility] Start: 08-12-2024 [facility] Start: 08-12-2024 Administration of blood product [facility] Start: 08-12-2024 Care of hemodialysis equipment [facility] Start: 08-12-2024 Hemodialysis care [facility] Start: 08-12-2024 End: 08-12-2024 [facility] Start: 08-09-2024 End: 08-09-2024 [facility] Start: 08-09-2024 Hemodialysis care [facility] Start: 08-07-2024 End: 08-08-2024 [facility] Start: 08-07-2024 Attention to flatus tube [facility] Start: 08-07-2024 Care of hemodialysis equipment [facility] Start: 08-07-2024 Hemodialysis care [facility] Start: 08-07-2024 [facility] Start: 08-05-2024 End: 08-06-2024 [facility] Start: 08-05-2024 Referral to occupational therapist [facility] Start: 08-05-2024 Referral to service [facility] Start: 08-05-2024 Care of hemodialysis equipment [facility] Start: 08-05-2024 Hemodialysis care [facility] Start: 08-04-2024 End: 08-05-2024 [facility] Start: 08-04-2024 Administration of blood product [facility] Start: 08-04-2024 Notification of physician [facility] Start: 08-04-2024 Care regimes management [facility] Start: 08-04-2024 [facility] Start: 08-03-2024 Nil by mouth [facility] Start: 08-02-2024 End: 08-03-2024 [facility] Start: 08-02-2024 Application of intermittent pneumatic compression device [facility] Start: 08-02-2024 Care of hemodialysis equipment [facility] Start: 08-02-2024 Hemodialysis care [facility] Start: 08-01-2024 Wound care [facility] Start: 08-01-2024 Care of hemodialysis equipment [facility] Start: 08-01-2024 Hemodialysis care [facility] Start: 08-01-2024 End: 08-01-2024 [facility] Start: 07-31-2024 Consultation for treatment [facility] Start: 07-31-2024 Following clinical pathway protocol [facility] Start: 07-31-2024 Ambulation without limitation [facility] Start: 07-31-2024 Assessment of risk of venous thromboembolism [facility] Start: 07-31-2024 Insertion of catheter into peripheral vein [facility] Start: 07-31-2024 Oxygen therapy [facility] Start: 07-31-2024 Providing care according to standard [facility] Start: 07-31-2024 Referral to gastroenterology service [facility] Start: 07-31-2024 Referral to benzol operator [facility] Start: 07-31-2024 Referral to service [facility] Start: 07-31-2024 [facility] Start: 07-31-2024 Admission procedure [facility] Start: 07-31-2024 Patient referral to dietitian [facility] Start: 07-29-2024 Patient discharge [facility] Start: 07-29-2024 Care of hemodialysis equipment [facility] Start: 07-29-2024 Hemodialysis care [facility] Start: 07-29-2024 [facility] Start: 07-26-2024 Care of hemodialysis equipment [facility] Start: 07-26-2024 Hemodialysis care [facility] Start: 07-26-2024 [facility] Start: 07-25-2024 Oxygen therapy [facility] Start: 07-25-2024 Care of hemodialysis equipment [facility] Start: 07-25-2024 Hemodialysis care [facility] Start: 07-25-2024 [facility] Start: 07-24-2024 Wound care [facility] Start: 07-23-2024 Application of intermittent pneumatic compression device [facility] Start: 07-23-2024 Assessment of risk of venous thromboembolism [facility] Start: 07-23-2024 Consultation for treatment [facility] Start: 07-23-2024 Documentation procedure [facility] Start: 07-23-2024 Insertion of catheter into peripheral vein [facility] Start: 07-23-2024 Patient referral to dietitian [facility] Start: 07-23-2024 Providing care according to standard [facility] Start: 07-23-2024 Provision of activity privileges [facility] Start: 07-23-2024 Referral to gastroenterology service [facility] Start: 07-23-2024 Referral to benzol operator [facility] Start: 07-23-2024 Referral to occupational therapist [facility] Start: 07-23-2024 Referral to service [facility] Start: 07-23-2024 [facility] Start: 07-23-2024 Admission procedure [facility] Start: 07-18-2024 [facility] Start: 07-18-2024 [facility] Start: 02-26-2024 End: 02-26-2024 Patient encounter procedure 02/26/2024 2:00 PM EDT Office Visit [facility] [address] [place] [address] Ying Quispe DO [address] [place] [address] [facility] Start: 02-14-2024 Screening for malignant neoplasm of breast Mammogram [facility] Start: 01-30-2024 End: 01-30-2024 Patient encounter procedure 01/30/2024 3:30 PM EDT Office Visit [facility] [address], 3rd [place] [address] Sarath Rey MD [address] [place], [place] [id number] [facility] Start: 01-28-2024 COVID-19 Vaccine ( season) COVID-19 Vaccine ( season) [facility] Start: 01-28-2024 COVID-19 Vaccine ( season) COVID-19 Vaccine ( season) [facility] Start: 01-28-2024 Influenza vaccination [facility] Start: 01-26-2024 Lipid panel Lipid Panel [facility] Start: 01-24-2024 End: 01-24-2024 Admission to same day surgery center 01/24/2024 7:10 AM EDT - 01/24/2024 11:55 AM EDT Surgery [facility] [address] [place] [address] Edenilson Guerra DO [address] [place] [address] Explant of Endograft and Open Aortic Aneurysm Repair [facility] Comment on above: Explant of Endograft and Open Aortic Ane urysm Repair Start: 01-24-2024 End: 01-24-2024 Dir rpr ruptd aneurysm abdominal aorta ANEURYSM REPAIR ABDOMINAL AORTIC (AAA) Juxtarenal abdominal aortic aneurysm, ruptured (HCC) 01/24/2024 7:10 AM EDT [facility] Start: 01-24-2024 Subsequent hospital visit by physician [facility] Start: 01-23-2024 End: 01-23-2024 Patient encounter procedure 01/23/2024 3:30 PM EDT Office Visit [facility] [address], 3rd [place] [address] Sarath Rey MD [address] [place] [address] [facility] Start: 01-10-2024 End: 01-10-2024 Patient encounter procedure 01/10/2024 8:15 AM EDT Anticoag visit [facility] [address] [place] [address] [facility] Start: 01-09-2024 End: 01-09-2024 Patient encounter procedure 01/09/2024 1:00 PM EDT Office Visit [facility] [address], 3rd [place] [address] Sarath Rey MD [address] [place] [address] [facility] Start: 01-09-2024 Subsequent hospital visit by physician 01/09/2024 9:00 AM EDT Hospital Encounter [facility] CT Scan [address] [place] [address] Sarath Rey MD [address] [place] [address] [facility] [address] Scan Start: 01-05-2024 End: 01-05-2024 Patient encounter procedure [facility] Start: 01-03-2024 End: 01-03-2024 Patient encounter procedure [facility] Comment on above: Acute deep vein thrombosis (DVT) of axil yusuf vein of left upper extremity (HCC) (Primary Dx) Start: 01-03-2024 End: 01-03-2024 Home visit [facility] Start: 01-02-2024 End: 01-02-2024 Home visit 01/02/2024 11:45 AM EDT Home Care Visit [address] [address] Makenzie Garza RN [facility] Start: 12-28-2023 End: 12-28-2023 Home visit 12/28/2023 9:45 AM EDT Home Care Visit [address] [phone] Nahid Lindsay PT [facility] Start: 12-27-2023 End: 12-27-2023 Patient encounter procedure [facility] Start: 12-27-2023 End: 12-27-2023 Home visit [facility] Start: 12-26-2023 End: 12-26-2023 Patient encounter procedure [facility] Start: 12-25-2023 End: 12-25-2023 Home visit 12/25/2023 3:00 PM EDT Home Care Visit [address] [address] Nahid [place] PTA [facility] Start: 12-21-2023 End: 12-21-2023 Patient encounter procedure [facility] Comment on above: Acute deep vein thrombosis (DVT) of axil yusuf vein of left upper extremity (HCC) (Primary Dx) Start: 12-21-2023 End: 12-20-2024 INR in Platelet poor plasma by Coagulation assay PT/INR Lab STAT Acute deep vein thrombosis (DVT) of axillary vein of left upper extremity (HCC) Expected: 12/21/2023, Expires: 12/20/2024 [facility] Work Phone: Comment on above: Expected: 12/21/2023, Expires: Start: 12-20-2023 End: 12-20-2023 Patient encounter procedure 12/20/2023 5:00 PM EDT Anticoag visit [facility] [address] [place] [phone] [facility] Start: 12-20-2023 End: 12-20-2023 Home visit [facility] Start: 12-15-2023 COVID-19 Vaccine ( season) COVID-19 Vaccine ( season) [facility] Start: 12-15-2023 End: 12-15-2023 Home visit 12/15/2023 6:00 AM EDT Home Care Visit [address] [phone] Ernestina Moody PTA [facility] Start: 12-13-2023 End: 12-13-2023 Patient encounter procedure [facility] Start: 12-13-2023 End: 12-13-2023 Home visit [facility] Start: 12-11-2023 End: 12-11-2023 Patient encounter procedure 12/11/2023 2:00 PM EDT Appointment [facility] CT Scan [address] [place] [phone] Tylor Kruger MD [address] [place] [address] [facility] [address] Scan Start: 12-11-2023 End: 12-11-2023 Home visit 12/11/2023 11:00 AM EDT Home Care Visit [address] [address] Ernestina Moody PTA [facility] Start: 12-06-2023 End: 12-06-2023 Patient encounter procedure [facility] Comment on above: Acute deep vein thrombosis (DVT) of axil yusuf vein of left upper extremity (HCC) (Primary Dx) Start: 12-06-2023 End: 12-06-2023 Home visit [facility] Start: 12-05-2023 End: 12-05-2023 Home visit 12/05/2023 11:00 AM EDT Home Care Visit [address] [address] Ernestina Moody PTA [facility] Start: 11-29-2023 End: 11-29-2023 Patient encounter procedure [facility] Comment on above: Arrived Start: 11-29-2023 Depression screening using PHQ-9 (Patient Health Questionnaire 9) score [facility] Start: 11-29-2023 BEKAH-7 Screening BEKAH-7 Screening [facility] Start: 11-29-2023 End: 11-29-2023 Home visit [facility] Start: 11-28-2023 End: 11-28-2023 Patient encounter procedure 11/28/2023 3:00 PM EDT Appointment [facility] [address] [place] [address] Abigail Estrella, REGISTERED NURSE CARDIOVASCULAR ICU [address] [place] [address] [facility] Start: 11-27-2023 End: 11-27-2023 Home visit 11/27/2023 4:00 PM EDT Home Care Visit [address] [address] Giovany Montalvo OTA [facility] Start: 11-24-2023 End: 11-24-2023 Home visit 11/24/2023 3:45 PM EDT Home Care Visit [address] [address] Giovany Montalvo OTA [facility] Start: 11-23-2023 End: 11-23-2023 Patient encounter procedure 11/23/2023 1:30 PM EDT Office Visit [facility] [address] [place] [address] Ying Quispe DO [address] [place] [address] [facility] Start: 11-23-2023 End: 11-23-2023 Home visit [facility] Start: 11-22-2023 End: 11-22-2023 Patient encounter procedure 11/22/2023 2:00 PM EDT Office Visit [facility] [address] [place] [address] Abigail Estrella, REGISTERED NURSE CARDIOVASCULAR ICU [address] [place] [address] Discharge Disposition: Home [facility] Start: 11-21-2023 End: 11-21-2023 Patient encounter procedure [facility] Comment on above: Acute deep vein thrombosis (DVT) of axil yusuf vein of left upper extremity (HCC) (Primary Dx) Start: 11-21-2023 End: 11-21-2023 Home visit [facility] Start: 11-18-2023 End: 11-16-2024 CTA Abdominal Aorta and Bilateral Runoff Vessels W contrast IV CT Angiogram Abdominal Aorta With Lower Extremity Imaging Routine 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) PVD (peripheral vascular disease) (HCC) Expected: 11/18/2023, Expires: 11/16/2024 [facility] Comment on above: Expected: 11/18/2023, Expires: Start: 11-17-2023 End: 11-17-2023 Home visit 11/17/2023 3:30 PM EDT Home Care Visit [address] [phone] Giovany Montalvo OTA [facility] Start: 11-17-2023 End: 11-16-2024 Creatinine [Mass/volume] in Serum or Plasma Creatinine, serum Lab Routine 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) PVD (peripheral vascular disease) (HCC) Expected: 11/17/2023, Expires: 11/16/2024 [facility] Work Phone: Comment on above: Expected: 11/17/2023, Expires: Start: 11-17-2023 End: 11-17-2023 Patient encounter procedure 11/17/2023 8:00 AM EDT Office Visit [facility] [address] [place] [phone] Tylor Kruger MD [address] [place] [address] [facility] Start: 11-16-2023 End: 11-16-2023 Home visit [facility] Start: 11-16-2023 End: 11-16-2023 Patient encounter procedure 11/16/2023 9:00 AM EDT Appointment [facility] [address] [place] [address] [place] [address] Tylor Kruger MD [address] [place] [address] [facility] Start: 11-16-2023 Subsequent hospital visit by physician 11/16/2023 9:00 AM EDT Hospital Encounter [facility] [address] [place] [address] Tylor Kruger MD [address] [place] [address] [facility] Start: 11-14-2023 End: 11-14-2023 Patient encounter procedure [facility] Comment on above: Arrived Start: 11-14-2023 End: 11-14-2023 Home visit [facility] Start: 11-14-2023 End: 11-14-2023 Home visit 11/14/2023 Home Care Visit [address] [address] Addie Purcell RN [facility] Start: 11-11-2023 End: 12-10-2024 US angiography of renal artery Ultrasound renal artery duplex, complete Vascular Ultrasound Routine Ruptured abdominal aortic aneurysm (AAA), unspecified part (HCC) Expected: 11/11/2023, Expires: 12/10/2024 [facility] Work Phone: Comment on above: Expected: 11/11/2023, Expires: Start: 11-10-2023 End: 11-10-2023 Home visit [facility] Start: 11-10-2023 End: 11-10-2023 Home visit 11/10/2023 Home Care Visit [address] [address] Addie Purcell RN [facility] Start: 11-08-2023 End: 11-08-2023 Patient encounter procedure 11/08/2023 5:00 PM EDT Anticoag visit [facility] [address] [facility] [address] [place] [address] Lita Gu MD [address] [place] [address] Discharge Disposition: [facility] Start: 11-08-2023 End: 11-08-2023 Home visit [facility] Start: 11-08-2023 End: 11-08-2023 Home visit 11/08/2023 Home Care Visit [address] [address] Addie Purcell RN [facility] Start: 11-06-2023 End: 11-06-2023 Patient encounter procedure 11/06/2023 8:30 AM EDT Appointment [address] [address] Makenzie Garza RN [facility] Start: 11-01-2023 End: 11-01-2023 Follow-up encounter 11/01/2023 1:00 PM EDT Follow-Up [facility] [address] [place] [address] Cate Contreras, REGISTERED NURSE CARDIOVASCULAR ICU [address] [place] [address] [facility] Start: 10-25-2023 End: 10-25-2023 Patient encounter procedure 10/25/2023 8:30 AM EDT Office Visit [facility] [address] [place] [address] Ying Quispe DO [address] [place] [address] [facility] Start: 10-17-2023 End: 10-17-2023 Patient encounter procedure 10/17/2023 1:30 PM EDT Procedure visit [facility] [address], 2nd [place] [address] Cuauhtemoc Barrios MD [address] M[address] [place] [address] [facility] Start: 10-12-2023 End: 10-12-2023 Patient encounter procedure [facility] Start: 10-09-2023 End: 10-09-2023 Patient encounter procedure [facility] CT Scan Start: 09-19-2023 End: 09-19-2023 Patient encounter procedure [facility] Start: 09-18-2023 End: 09-18-2023 Patient encounter procedure 09/18/2023 9:45 AM EDT Appointment [facility] MRI [address] [place] [phone] Theresa Boykin PA-C [address] [place] [address] [facility] Start: 09-18-2023 End: 09-18-2023 Patient encounter procedure 09/18/2023 8:40 AM EDT Appointment [facility] CT Scan [address] [place] [phone] Lita Gu MD [address] [place] [address] [facility] [address] Scan Start: 09-07-2023 End: 09-07-2023 Patient encounter procedure 09/07/2023 8:15 AM EDT Anticoag visit [facility] [address] [place] [address] [facility] Start: 08-10-2023 End: 08-10-2023 Patient encounter procedure 08/10/2023 8:30 AM EDT Anticoag visit [facility] [address] [place] [address] [facility] Start: 07-18-2023 End: 07-18-2023 Patient encounter procedure 07/18/2023 9:00 AM EST Office Visit [facility] [address] [place] [address] Yfn Puckett Jr., YELITZA [address] [place] [address] [facility] Start: 2023 End: 2023 Patient encounter procedure 2023 8:00 AM EST Appointment [facility] [address] [place] [address] [place] [phone] Yfn Puckett Jr., YELITZA [address] [place] [address] [facility] Start: 07-13-2023 End: 07-13-2023 Patient encounter procedure 07/13/2023 8:15 AM EST Anticoag visit [facility] [address] [place] [address] [facility] Start: 06-07-2023 End: 06-07-2023 Patient encounter procedure 06/07/2023 8:15 AM EST Anticoag visit [facility] [address] [place] [address] [facility] Start: 06-06-2023 Depression screening using PHQ-9 (Patient Health Questionnaire 9) score Depression Screening (PHQ-2/9) [facility] Start: 06-06-2023 BEKAH-7 Screening BEKAH-7 Screening [facility] Start: 05-03-2023 End: 05-03-2023 Patient encounter procedure 05/03/2023 8:15 AM EST Anticoag visit [facility] [address] [place] [address] [facility] Start: 04-24-2023 End: 04-24-2023 Patient encounter procedure 04/24/2023 11:30 AM EST Office Visit [facility] [address] [place] [address] Ying Quispe DO [address] [place] [address] [facility] Start: 04-10-2023 End: 04-10-2023 Patient encounter procedure 04/10/2023 8:15 AM EST Office Visit [facility] [address] [place] [address] Lita Gu MD [address] [place] [address] [facility] Start: 04-05-2023 End: 04-05-2023 Patient encounter procedure 04/05/2023 8:00 AM EST Anticoag visit [facility] [address] [place] [address] [facility] Start: 03-08-2023 End: 03-08-2023 Patient encounter procedure 03/08/2023 8:00 AM EDT Anticoag visit [facility] [address] [facility] [address] [place] [address] [facility] Start: 02-15-2023 End: 02-15-2023 Patient encounter procedure 02/15/2023 8:00 AM EDT Anticoag visit [facility] [address] [facility] [address] [place] [address] [facility] Start: 02-13-2023 End: 02-13-2023 Patient encounter procedure 02/13/2023 9:30 AM EDT Appointment [facility] [address] [place] [phone] Ying Quispe DO [address] [place] [address] [facility] Start: 02-08-2023 End: 03-27-2024 MG Breast - bilateral Screening Mammography Screening Jose Bilateral Imaging Routine Encounter for screening mammogram for malignant neoplasm of breast Expected: 02/08/2023, Expires: 03/27/2024 [facility] Comment on above: Expected: 02/08/2023, Expires: Start: 02-03-2023 End: 02-03-2023 Patient encounter procedure 02/03/2023 11:00 AM EDT Office Visit [facility] [address] [facility] Medical Office Building, 2nd [place] [address] Lita Gu MD [address] [place] [address] Nazario Almeida MD [address] [facility] 2nd [place] [address] [facility] Start: 02-01-2023 End: 02-01-2023 Patient encounter procedure 02/01/2023 8:00 AM EDT Anticoag visit [facility] [address] [place] [address] [facility] Start: 01-27-2023 COVID-19 Vaccine ( season) COVID-19 Vaccine ( season) [facility] Start: 01-27-2023 Influenza vaccination [facility] Start: 01-25-2023 End: 01-25-2023 Patient encounter procedure 01/25/2023 3:45 PM EDT Office Visit [facility] [address] [place] [address] Ying Quispe DO [address] [place] [address] [facility] Start: 01-23-2023 End: 01-23-2023 Patient encounter procedure 01/23/2023 10:30 AM EDT Anticoag visit [facility] [address] [place] [address] [facility] Start: 01-16-2023 End: 01-16-2023 Patient encounter procedure 01/16/2023 8:15 AM EDT Anticoag visit [facility] [address] [place] [address] [facility] Start: 01-09-2023 End: 01-09-2023 Patient encounter procedure 01/09/2023 8:00 AM EDT Anticoag visit [facility] [address] [place] [address] [facility] Start: 01-05-2023 Depression screening using PHQ-9 (Patient Health Questionnaire 9) score Depression Screening (PHQ-2/9) [facility] Start: 01-05-2023 BEKAH-7 Screening BEKAH-7 Screening [facility] Start: 01-02-2023 End: 01-02-2023 Patient encounter procedure 01/02/2023 7:30 AM EDT Anticoag visit [facility] [address] [place] [address] [facility] Start: 12-26-2022 End: 12-26-2022 Patient encounter procedure 12/26/2022 8:15 AM EDT Anticoag visit [facility] [address] [place] [address] [facility] Start: 12-19-2022 End: 12-19-2022 Patient encounter procedure 12/19/2022 7:45 AM EDT Anticoag visit [facility] [address] [place] [address] Lita Gu MD [address] [place] [address] [facility] Start: 12-12-2022 End: 12-12-2022 Patient encounter procedure 12/12/2022 9:30 AM EDT Office Visit [facility] [address] [place] [address] Lita Gu MD [address] [place] [address] [facility] Start: 12-07-2022 Screening for malignant neoplasm of breast Mammogram [facility] Start: 12-01-2022 End: 12-01-2022 Clinical Support 12/01/2022 8:00 AM EDT Clinical Support [facility] [address] [place] [address] [facility] Start: 11-28-2022 End: 11-28-2022 Patient encounter procedure 11/28/2022 4:15 PM EDT Office Visit [facility] [address] [place] [address] Ying Quispe DO [address] [place] [address] [facility] Start: 11-24-2022 End: 11-24-2022 Patient encounter procedure 11/24/2022 Office Visit Primary Care Ying Quispe DO [address] [place] [address] [facility] Start: 11-21-2022 End: 11-21-2022 Patient encounter procedure 11/21/2022 Office Visit Primary Care Ying Quispe DO [address] [place] [address] [facility] Start: 11-19-2022 Lipid panel Lipid Panel [facility] Start: 11-18-2022 History and physical examination, annual for health maintenance Wellness Visit [facility] Start: 11-08-2022 End: 10-26-[address] CT Biopsy Lymph Node CT Biopsy Lymph Node Imaging Routine History of deep venous thrombosis Axillary lymphadenopathy Expected: 11/08/2022, Expires: 10/26/2023 [facility] Work Phone: Comment on above: Expected: 11/08/2022, Expires: Start: 10-25-2022 End: 10-25-2022 Patient encounter procedure 10/25/2022 10:45 AM EDT Office Visit [facility] [address] [facility] [address] [place] [address] Lita Gu MD [address] [place] [address] [facility] Start: 10-18-2022 End: 09-27-2023 MR Brain With And Without Contrast MR Brain With And Without Contrast Imaging Routine History of deep venous thrombosis Current smoker Transaminitis Factor V Leiden mutation (HCC) Lymphadenopathy Decreased muscle strength Lung nodule seen on imaging study Expected: 10/18/2022 (Approximate), Expires: 09/27/2023 [facility] Comment on above: Expected: 10/18/2022 (Approximate), Expi res: 09/27/2023 Start: 10-18-2022 End: 09-28-2023 PET Tumor Imaging With CT Skull To Thigh PET Tumor Imaging With CT Skull To Thigh Imaging Routine History of deep venous thrombosis Current smoker Transaminitis Factor V Leiden mutation (HCC) Lymphadenopathy Decreased muscle strength Lung nodule seen on imaging study Expected: 10/18/2022 (Approximate), Expires: 09/28/2023 [facility] Work Phone: Comment on above: Expected: 10/18/2022 (Approximate), Expi res: 09/28/2023 Start: 09-27-2022 End: 09-27-2022 Patient encounter procedure [facility] Start: 09-20-2022 End: 09-20-2022 Patient encounter procedure 09/20/2022 11:30 AM EDT Office Visit [facility] [address] [place] [address] Ying Quispe DO [address] [place] [address] [facility] Start: 09-15-2022 End: 09-15-2022 Patient encounter procedure 09/15/2022 Appointment Radiology Lita Gu MD [address] [place] [address] [facility] [address] Scan Start: 09-14-2022 End: 07-07-2023 Complete blood count with white cell differential, manual CBC and Differential Lab Routine Acute deep vein thrombosis (DVT) of axillary vein of left upper extremity (HCC) Current smoker Cigarette smoker Screening for malignant neoplasm of respiratory organ Expected: 09/14/2022 (Approximate), Expires: 07/07/2023 [facility] Work Phone: Comment on above: Expected: 09/14/2022 (Approximate), Expi res: 07/07/2023 Start: 09-14-2022 End: 07-07-2023 Comprehensive metabolic 2000 panel - Serum or Plasma Comprehensive Metabolic Panel Lab Routine Acute deep vein thrombosis (DVT) of axillary vein of left upper extremity (HCC) Current smoker Cigarette smoker Screening for malignant neoplasm of respiratory organ Expected: 09/14/2022 (Approximate), Expires: 07/07/2023 [facility] Comment on above: Expected: 09/14/2022 (Approximate), Expi res: 07/07/2023 Start: 09-14-2022 End: 07-06-2023 D-dimer assay, quantitative D-Dimer, Quantitative Lab Routine Acute deep vein thrombosis (DVT) of axillary vein of left upper extremity (HCC) Current smoker Cigarette smoker Screening for malignant neoplasm of respiratory organ Expected: 09/14/2022 (Approximate), Expires: 07/06/2023 [facility] Comment on above: Expected: 09/14/2022 (Approximate), Expi res: 07/06/2023 Start: 09-14-2022 End: 07-06-2023 Low dose computed tomography of thorax CT Lung Cancer Screening Imaging Routine Acute deep vein thrombosis (DVT) of axillary vein of left upper extremity (HCC) Current smoker Cigarette smoker Screening for malignant neoplasm of respiratory organ Expected: 09/14/2022, Expires: 07/06/2023 [facility] Comment on above: Expected: 09/14/2022, Expires: Start: 09-12-2022 End: 09-12-2022 Patient encounter procedure 09/12/2022 Office Visit Primary Care Ying Quispe DO [address] [place] [address] [facility] Start: 2022 Respiratory Syncytial Virus Immunization: Risk, 60-74 Risk, or 75+ (1 - Risk 60-74 years 1-dose series) Respiratory Syncytial Virus Immunization: Risk, 60-74 Risk, or 75+ (1 - Risk 60-74 years 1-dose series) [facility] Start: 06-13-2022 End: 06-13-2022 Patient encounter procedure 06/13/2022 Office Visit Primary Care Ying Quispe DO [address] [place] [address] [facility] Start: 05-12-2022 Depression screening using PHQ-9 (Patient Health Questionnaire 9) score Depression Screening (PHQ-2/9) [facility] Start: 05-12-2022 BEKAH-7 Screening BEKAH-7 Screening [facility] Start: 01-27-2022 Influenza vaccination [facility] Start: 01-13-2022 End: 01-13-2022 Patient encounter procedure 01/13/2022 Office Visit Podiatry Yfn Puckett Jr., DPM [address] [place] [address] [facility] Start: 12-07-2021 Subsequent hospital visit by physician 12/07/2021 Hospital Encounter Radiology Ying Quispe DO [address] [place] [address] [facility] Start: 12-07-2021 End: 12-07-2021 Patient encounter procedure 12/07/2021 Appointment Radiology Ying Quispe DO [address] [place] [address] [facility]a Start: 11-25-2021 End: 11-25-2021 Patient encounter procedure 11/25/2021 Office Visit Podiatry Yfn Puckett Jr., DPRosie [address] [place] [address] [facility] Start: 11-24-2021 End: 11-24-2021 Patient encounter procedure 11/24/2021 Office Visit Primary Care Brittaney Ying Sweeney, [address] [place] [address] [facility] Start: 11-18-2021 End: 11-18-2021 Patient encounter procedure 11/18/2021 Office Visit Primary Care BrittaneyYing, [address] [place] [address] [facility] Start: 11-11-2021 End: 11-11-2021 Patient encounter procedure 11/11/2021 Office Visit Podiatry Yfn Puckett Jr., DPM [address] [place] [address] [facility] Start: 09-29-2021 Depression screening using PHQ-9 (Patient Health Questionnaire 9) score Depression Screening (PHQ9) [facility] Start: 07-22-2021 End: 07-22-2021 Patient encounter procedure 07/22/2021 Office Visit Podiatry Yfn Puckett Jr., DPRosie [address] [place] [address] [facility] Start: 06-21-2021 End: 06-21-2021 Patient encounter procedure 06/21/2021 Office Visit Primary Care BrittaneyYing harmone [address] [place] [address] [facility] Start: 06-21-2021 BEKAH-7 Screening BEKAH-7 Screening [facility] Start: 04-15-2021 End: 04-15-2021 Patient encounter procedure 04/15/2021 Office Visit Primary Care Bambi Huynh MD [address] [place] [address] [phone] [facility] Start: 01-27-2021 Influenza vaccination [facility] Start: 09-29-2020 End: 09-29-2020 Patient encounter procedure 09/29/2020 Office Visit Primary Care Bambi Huynh MD [address] [place] [address] [phone] [facility] Physician [facility] Start: 01-28-2020 Influenza vaccination given Sequential Influenza Vaccine (#1) [facility] Start: 01-24-2020 History and physical examination, annual for health maintenance Wellness Visit [facility] Comment on above: Postponed from 1965 (Patient Does Not Have Time) Start: 01-24-2020 Tetanus vaccination [facility] Comment on above: Postponed from 1962 (Patient Does Not Have Time) Start: 01-15-2020 Administration of herpes zoster vaccine Zoster Vaccines (1 of 2) [facility] Comment on above: Postponed from 2012 (Treatment Not Available) Start: 01-15-2020 Depression screening using PHQ-9 (Patient Health Questionnaire 9) score DEPRESSION SCREENING (PHQ9) [facility] Start: 12-21-2019 Lipid panel Lipid Panel [facility] Start: 11-26-2019 Influenza vaccination given SEQUENTIAL INFLUENZA VACCINE (#1) [facility] Comment on above: Postponed from 01/27/2019 (Patient Refus ed) Start: 09-23-2019 End: 09-23-2019 Office Visit 09/23/2019 Office Visit Primary Care Bambi Huynh MD [address] [address] [phone] [facility] Physician [facility] Start: 07-26-2019 Protein mass conc Mammogram [facility] Comment on above: Postponed from 07/04/2017 (Patient Does Not Have Time) Start: 07-26-2019 Screening for osteoporosis DEXA SCAN [facility] Comment on above: Postponed from 1962 (Patient Does Not Have Time) Start: 07-26-2019 Screening mammography Mammogram [facility] Comment on above: Postponed from 07/04/2017 (Patient Does Not Have Time) Start: 07-25-2019 Screening for malignant neoplasm of cervix PAP SMEAR [facility] Comment on above: Postponed from 1962 (Patient Does Not Have Time) Start: 05-01-2019 End: 05-01-2019 Treatment 05/01/2019 Treatment Bambi Madrid MD [address] [place] [address] [phone] Fuad Pisano, PT [facility] Start: 04-29-2019 End: 04-29-2019 Treatment 04/29/2019 Treatment Bambi Madrid MD [address] [place] [address] [phone] Tisha Do [facility] Start: 04-24-2019 End: 04-24-2019 Treatment 04/24/2019 Treatment Bambi Madrid MD [address] [place] [address] [phone] Soo Walls [facility] Start: 04-24-2019 End: 04-24-2019 Treatment 04/24/2019 Treatment Bambi Madrid MD [address] [place] [address] [phone] Oh Crockett [facility] Start: 04-22-2019 End: 04-22-2019 Treatment 04/22/2019 Treatment Bambi Madrid MD [address] [place] [address] [phone] Tisha Do [facility] Start: 04-17-2019 End: 04-17-2019 Treatment 04/17/2019 Treatment Bambi Madrid MD [address] [place] [address] [phone] Leanne Gomes, [facility] Start: 04-15-2019 End: 04-15-2019 Treatment 04/15/2019 Treatment Rehabilitation Bambi Huynh MD [address] [place] [address] [phone] Tisha Do [facility] Start: 04-10-2019 End: 04-10-2019 Treatment 04/10/2019 Treatment Rehabilitation Bambi Huynh MD [address] [place] [address] [phone] Leanne Gomes [facility] Start: 03-26-2019 End: 03-26-2019 Office Visit 03/26/2019 Office Visit Primary Care Bambi Huynh MD [address] [place] [address] [phone] [facility] Physician [facility] Start: 01-27-2019 Influenza vaccination given SEQUENTIAL INFLUENZA VACCINE (#1) [facility] Start: 01-15-2019 End: 01-15-2019 Office Visit 01/15/2019 Office Visit Primary Care Bambi Huynh MD [address] [place] [address] [phone] [facility] Physician [facility] Start: 10-30-2018 End: 10-30-2018 Office Visit 10/30/2018 Office Visit Sports Medicine Mendez Roy MD [address] [place] [address] [phone] [facility] Start: 09-06-2018 History and physical examination, annual for health maintenance ANNUAL EXAM [facility] Comment on above: Postponed from 1962 (Patient Does Not Have Time) Start: 01-01-2018 End: 01-01-2018 Ambulatory 01/01/2018 Office Visit Primary Care Bambi Huynh MD [address] [place] [address] [phone] [facility] Physician [facility] Start: 07-04-2017 Screening for malignant neoplasm of breast Mammogram [facility] Start: 07-04-2017 Screening mammography MAMMOGRAM [facility] Work Phone: Start: 2012 Administration of herpes zoster vaccine Zoster Vaccines (1 of 2) [facility] Start: 2012 Screening for malignant neoplasm of colon [facility] Start: 1992 Screening for malignant neoplasm of cervix [facility] Start: 1983 Screening for malignant neoplasm of cervix Pap Smear [facility] Start: 1981 Pneumococcal Vaccine: Age 50+ (1 of 2 - PCV) Pneumococcal Vaccine: Age 50+ (1 of 2 - PCV) [facility] Start: 1981 Pneumococcal Vaccine: Ped or At-Risk (1 of 2 - PCV) Pneumococcal Vaccine: Ped or At-Risk (1 of 2 - PCV) [facility] Start: 1978 COVID-19 Vaccine (1 of 2) COVID-19 Vaccine (1 of 2) [facility] Start: 1978 COVID-19 Vaccine (1) COVID-19 Vaccine (1) [facility] Start: 1977 HIV screening HIV Screening [facility] Start: 1974 Adolescent depression screening assessment Depression Screening (PHQ9) [facility] Start: 1974 COVID-19 Vaccine (1) COVID-19 Vaccine (1) [facility] Start: 1974 Depression screening using PHQ-9 (Patient Health Questionnaire 9) score Depression Screening (PHQ9) [facility] Start: 1972 Urine screening for protein Urine (micro)albumin/creatinine ratio - Kidney Disease [facility] Start: 1968 Pneumococcal Vaccine: Ped or At-Risk (1 - PCV) Pneumococcal Vaccine: Ped or At-Risk (1 - PCV) [facility] Start: 1968 Pneumococcal Vaccine: Ped or At-Risk (1 of 2 - PCV) Pneumococcal Vaccine: Ped or At-Risk (1 of 2 - PCV) [facility] Start: 1968 Pneumococcal Vaccine: Ped or At-Risk (1 of 2 - PPSV23) Pneumococcal Vaccine: Ped or At-Risk (1 of 2 - PPSV23) [facility] Start: 1967 COVID-19 Vaccine (#1) COVID-19 Vaccine (#1) [facility] Start: 1967 COVID-19 Vaccine (1) COVID-19 Vaccine (1) [facility] Start: 1965 History and physical examination, annual for health maintenance Wellness Visit [facility] Start: 01-14-1963 COVID-19 Vaccine (#1) COVID-19 Vaccine (#1) [facility] Start: 1962 HEPATITIS C SCREENING HEPATITIS C SCREENING [facility] Work Phone: Start: 1962 Protein mass conc COLONOSCOPY [facility] Start: 1962 Screening colonoscopy COLONOSCOPY [facility] Work Phone: Start: 1962 Screening for malignant neoplasm of cervix PAP SMEAR [facility] Start: 1962 Screening for malignant neoplasm of colon [facility] Start: 1962 Screening for osteoporosis Dexa Scan [facility] Start: 1962 Tetanus vaccination [facility] Amylase [Enzymatic activity/volume] in Body fluid [facility] Amylase [Enzymatic activity/volume] in Body fluid [facility] End: 11-18-2022 Bone density scan XR Bone Density DEXA Axial Imaging Routine Post-menopause 1 Occurrences starting 11/18/2021 until 11/18/2022 [facility] Comment on above: 1 Occurrences starting 11/18/2021 until 11/18/2022 Cologuard Cologuard Lab Ro utine Colon cancer screening Ordered: 11/18/2021 [facility] Comment on above: Ordered: 11/18/2021 Complete blood count with white cell differential, automated CBC Auto Differential Lab Panel Routine Orthostatic hypotension Ordered: 11/23/2023 [facility] Comment on above: Ordered: 11/23/2023 End: 11-18-2022 Complete blood count with white cell differential, manual CBC and Differential Lab Routine Routine general medical examination at a health care facility 1 Occurrences starting 11/18/2021 until 11/18/2022 [facility] Comment on above: 1 Occurrences starting 11/18/2021 until 11/18/2022 End: 12-13-2023 Complete blood count with white cell differential, manual CBC and Differential Lab Routine History of deep venous thrombosis Reactive lymphadenopathy Factor V Leiden mutation (HCC) Every 4 mo for 2 Occurrences starting 12/12/2022 until 12/13/2023, 1 completed [facility] Work Phone: Comment on above: Every 4 mo for 2 Occurrences starting until 12/13/2023, 1 completed End: 11-22-2024 Complete blood count with white cell differential, manual CBC and Differential Lab Routine Orthostatic hypotension 1 Occurrences starting 11/23/2023 until 11/22/2024 [facility] Comment on above: 1 Occurrences starting 11/23/2023 until 11/22/2024 End: 11-29-2023 Comprehensive metabolic 2000 panel - Serum or Plasma Comprehensive Metabolic Panel Lab Routine Familial hypercholesteremia 1 Occurrences starting 11/28/2022 until 11/29/2023 [facility] Work Phone: Comment on above: 1 Occurrences starting 11/28/2022 until 11/29/2023 End: 01-26-2024 Comprehensive metabolic 2000 panel - Serum or Plasma Comprehensive Metabolic Panel Lab Routine Hypothyroidism, unspecified type 1 Occurrences starting 01/25/2023 until 01/26/2024 [facility] Work Phone: Comment on above: 1 Occurrences starting 01/25/2023 until 01/26/2024 End: 11-22-2024 Comprehensive metabolic 2000 panel - Serum or Plasma Comprehensive Metabolic Panel Lab Routine Orthostatic hypotension 1 Occurrences starting 11/23/2023 until 11/22/2024 [facility] Work Phone: Comment on above: 1 Occurrences starting 11/23/2023 until 11/22/2024 End: 12-05-2020 COVID-19, Molecular COVID-19, Molecular Microbiology Routine Close Exposure To Covid-19 Virus Cough 1 Occurrences starting 12/06/2019 until 12/05/2020 [facility] Comment on above: 1 Occurrences starting 12/06/2019 until 12/05/2020 End: 01-04-2025 CTA Chest vessels and Abdominal vessels and Pelvis vessels W contrast IV CT Angiogram Chest Abdomen Pelvis Imaging Routine 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) Postoperative leak 1 Occurrences starting 01/05/2024 until 01/04/2025 [facility] Work Phone: Comment on above: 1 Occurrences starting 01/05/2024 until 01/04/2025 End: 05-23-2025 CTA Chest vessels and Abdominal vessels and Pelvis vessels WO and W contrast IV CT Angiogram Abdomen Pelvis Imaging Routine Abdominal aortic aneurysm (AAA) without rupture, unspecified part (HCC) 1 Occurrences starting 05/23/2024 until 05/23/2025 [facility] Work Phone: Comment on above: 1 Occurrences starting 05/23/2024 until 05/23/2025 Cytology report of B richie fluid Cyto stain [facility] Dir rpr ruptd aneury sm abdominal aorta ANEURYSM REPAIR ABDOMINAL AORTIC (AAA) Juxtarenal abdominal aortic aneurysm, ruptured (HCC) [facility] Doppler ultrasonogra phy of artery of lower limb Segmental Doppler Lower Extremity Arterial Vascular Ultrasound Routine Right-sided low back pain with right-sided sciatica, unspecified chronicity Ordered: 07/04/2023 [facility] Work Phone: Comment on above: Ordered: 07/04/2023 End: 06-06-2023 Erythrocyte sedimentation rate Sedimentation Rate Lab Routine Raynaud's phenomenon without gangrene 1 Occurrences starting 06/06/2022 until 06/06/2023 [facility] Work Phone: Comment on above: 1 Occurrences starting 06/06/2022 until 06/06/2023 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) Lab Routine 06/11/2022 4:13 AM EST [facility] Factor V Leiden genotype Factor V (F5) Leiden Mutation ([id number]) Lab Routine 06/11/2022 4:13 AM [facility] Work Phone: End: 11-18-2022 Hemoglobin A1c/Hemoglobin.total in Blood Hemoglobin A1c Lab Routine Routine general medical examination at a health care facility 1 Occurrences starting 11/18/2021 until 11/18/2022 [facility] Comment on above: 1 Occurrences starting 11/18/2021 until 11/18/2022 End: 07-03-2018 Hepatitis C Antibody Hepatitis C Antibody Routine Encounter For Hepatitis C Screening Test For Low Risk Patient 1 Occurrences starting 07/03/2017 until 07/03/2018 [facility] Work Phone: Lactate dehydrogenas e measurement [facility] End: 2019 Lipid 1996 panel Lipid Panel Routine Hyperlipidemia, unspecified hyperlipidemia type 1 Occurrences starting 2018 until 2019 [facility] Comment on above: 1 Occurrences starting 2018 until 2019 End: 11-18-2022 Lipid 1996 panel - Serum or Plasma Lipid Panel Lab Routine Routine general medical examination at a health care facility 1 Occurrences starting 11/18/2021 until 11/18/2022 [facility] Comment on above: 1 Occurrences starting 11/18/2021 until 11/18/2022 End: 01-26-2024 Lipid 1996 panel - Serum or Plasma Lipid Panel Lab Routine Familial hypercholesteremia 1 Occurrences starting 01/25/2023 until 01/26/2024 [facility] Comment on above: 1 Occurrences starting 01/25/2023 until 01/26/2024 End: 07-03-2018 Lipid panel Lipid Panel Routine Hyperlipidemia, unspecified hyperlipidemia type 1 Occurrences starting 07/03/2017 until 07/03/2018 [facility] Work Phone: End: 01-18-2023 MG Breast - bilateral Screening Mammography Screening Jose Bilateral Imaging Routine Encounter for screening mammogram for malignant neoplasm of breast 1 Occurrences starting 11/18/2021 until 01/18/2023 [facility] Work Phone: Comment on above: 1 Occurrences starting 11/18/2021 until 01/18/2023 End: 08-23-2024 MR Lumbar spine WO contrast MR Lumbar Spine Without Contrast Imaging Routine Lumbosacral radiculopathy Weakness of right lower extremity Paresthesias 1 Occurrences starting 08/24/2023 until 08/23/2024 [facility] Work Phone: Comment on above: 1 Occurrences starting 08/24/2023 until 08/23/2024 Patient Education [facility] Work Phone: Patient referral [facility] Work Phone: pH of Body fluid [facility] pH of Body fluid [facility] Procedure on tissue specimen Tissue Exam STAT Once for 1 Occurrences starting 09/14/2018 [facility] Comment on above: Once for 1 Occurrences starting 09/15/19 19 End: 09-28-2021 Thyrotropin [Units/volume] in Serum or Plasma TSH Lab Routine Hypothyroidism, unspecified type 1 Occurrences starting 09/28/2020 until 09/28/2021 [facility] Comment on above: 1 Occurrences starting 09/28/2020 until 09/28/2021 End: 06-06-2023 Thyrotropin [Units/volume] in Serum or Plasma TSH with Reflex Free T4 Lab Routine Hypothyroidism, unspecified type 1 Occurrences starting 06/06/2022 until 06/06/2023 [facility] Comment on above: 1 Occurrences starting 06/06/2022 until 06/06/2023 End: 01-26-2024 Thyrotropin [Units/volume] in Serum or Plasma TSH with Reflex Free T4 Lab Routine Hypothyroidism, unspecified type 1 Occurrences starting 01/25/2023 until 01/26/2024 [facility] Comment on above: 1 Occurrences starting 01/25/2023 until 01/26/2024 End: 04-24-2024 Thyrotropin [Units/volume] in Serum or Plasma TSH with Reflex Free T4 Lab Routine Hypothyroidism, unspecified type 1 Occurrences starting 04/24/2023 until 04/24/2024 [facility] Work Phone: Comment on above: 1 Occurrences starting 04/24/2023 until 04/24/2024 End: 2019 Thyrotropin Qn TSH Routine Hypothyroidism, unspecified type 1 Occurrences starting 2018 until 2019 [facility] Comment on above: 1 Occurrences starting 2018 until 2019 Total protein measurement [facility] End: 01-15-2020 TSH Qn TSH Lab Routine Hypothyroidism, unspecified type 1 Occurrences starting 01/14/2019 until 01/15/2020 [facility] Comment on above: 1 Occurrences starting 01/14/2019 until 01/15/2020 End: 07-03-2018 TSH with Reflex Free T4 TSH with Reflex Free T4 Routine Hypothyroidism, unspecified type 1 Occurrences starting 07/03/2017 until 07/03/2018 [facility] Work Phone: End: 02-25-2025 Ultrasound renal artery stenosis hypertension limited Ultrasound renal artery stenosis hypertension limited Vascular Ultrasound Routine Renal insufficiency 1 Occurrences starting 12/26/2023 until 02/25/2025 [facility] Work Phone: Comment on above: 1 Occurrences starting 12/26/2023 until 02/25/2025 End: 02-25-2025 US Abdominal Aortic Aneurysm Duplex (AAA) US Abdominal Aortic Aneurysm Duplex (AAA) Vascular Ultrasound Routine 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) 1 Occurrences starting 12/26/2023 until 02/25/2025 [facility] Comment on above: 1 Occurrences starting 12/26/2023 until 02/25/2025 End: 01-21-2025 US Doppler ankle/brachial index US Doppler ankle/brachial index Vascular Ultrasound Routine PVD (peripheral vascular disease) (HCC) Ischemia of toe 1 Occurrences starting 11/22/2023 until 01/21/2025 [facility] Work Phone: Comment on above: 1 Occurrences starting 11/22/2023 until 01/21/2025 Immunizations Immunization Date Immunization Notes Care Provider Fa doreen 10-20-2023 Pfizer SARS-CoV-2 Vaccination Cate Contreras REGISTERED NURSE CARDIOVASCULAR ICU Work Phone: [facility] 2018 influenza virus vacc ine, unspecified formulation Michelle Littlejohn [facility],PharmD Work Phone: [facility] Payers Date Payer Category Payer Managed Care (unspecified) [employer] HMO QPOS/SELECT [id number] 05-29-2024 Private Health Insurance [id number] 02-29-2024 Self-pay 05-29-2021 Managed Care HMO (unspecified) [facility] HMO/CHOICE PLUS/CATRINA/[employer] PLUS [id number] 05-29-2021 Unknown [id number] 05-29-2019 Unknown [id number] 05-29-[address] [employer] O [facility] [employer]ET[employer] [id number] 05/29/2019-Present [id number]. 2.7.3.529449.315 05-29-2019 Unknown [id number]. 1.13.385. 2.7.3.380238.315 03-29-2018 Unknown [id number]. 2.7.3.110421.315 03-29-2017 Private Health Insurance [id number] 2.16.840.1.462936.3.249. 13 06-29-2016 Unknown [id number] 1962 Unknown [id number] 2.16.840.1.177144.3.579. 2.903 1962 Unknown [id number] 2.16.840.1.831039.3.579. 2.903 1962 Unknown [id number] 2.16.840.1.582836.3.579. 2.903 1962 Unknown [id number] 2.16.840.1.339960.3.579. 2.903 1962 Unknown [id number] 2.16.840.1.157188.3.579. 2.903 1962 Unknown [id number] 2.16.840.1.702559.3.579. 2.900 1962 Unknown [id number] 2.16.840.1.192473.3.579. 2.900 1962 Unknown [id number] 2.16.840.1.839067.3.579. 2.900 1962 Unknown [id number] 2.16.840.1.526748.3.579. 2.900 1962 Unknown [id number] 2.16.840.1.342766.3.579. 2.900 1962 Unknown [id number] 2.16.840.1.821422.3.579. 2.903 1962 Unknown [id number] 2.16.840.1.845017.3.579. 2.903 1962 Unknown [id number] 2.16.840.1.210521.3.579. 2.903 1962 Unknown [id number] 2.16.840.1.894282.3.579. 2.90 1962 Unknown [id number] 2.16.840.1.168160.3.579. 2. 1962 Unknown [id number] 2.16.840.1.289758.3.579. 2.90 1962 Unknown [id number] 2.16.840.1.016587.3.579. 2. 1962 Unknown [id number] 2.16.840.1.965757.3.579. 2.903 1962 Unknown [id number] 2.16.840.1.929905.3.579. 2. 1962 Unknown [id number] 2.16.840.1.969610.3.579. 2.903 1962 Unknown [id number] 2.16.840.1.038215.3.579. 2.90 1962 Unknown [id number] 2.16.840.1.828695.3.579. 2.903 1962 Unknown [id number] 2.16.840.1.703465.3.579. 2.903 1962 Unknown [id number] 2.16.840.1.194666.3.579. 2.903 1962 Unknown [id number] 2.16.840.1.557003.3.579. 2 1962 Unknown [id number] 2.16.840.1.915881.3.579. 2. 1962 Unknown [id number] 2.16.840.1.557146.3.579. 2 1962 Unknown [id number] 2.16.840.1.278403.3.579. 2 1962 Unknown [id number] 2.16.840.1.654844.3.579. 2 1962 Unknown [id number] 2.16.840.1.897198.3.579. 2 1962 Unknown [id number] 2.16840.1.938279.3.579. 2 1962 Unknown [id number] 2.16.840.1.154279.3.579. 2 1962 Unknown [id number] 2.16.840.1.742107.3.579. 2 1962 Unknown [id number] 2.16.840.1.940403.3.579. 2 1962 Unknown [id number] 2.16840.1.105267.3.579. 2 1962 Unknown [id number] 2.16.840.1.712148.3.579. 2 1962 Unknown [id number] 2.16.840.1.906655.3.579. 2 1962 Unknown [id number] 2.16.840.1.115012.3.579. 2. 1962 Unknown [id number] 2.16.840.1.579608.3.579. 2 1962 Unknown [id number] 2.16.840.1.879434.3.579. 2.903 1962 Unknown [id number] .840.1.610154.3.579. 2.903 1962 Unknown [id number] 2.840.1.126616.3.579. 2.903 1962 Unknown [id number] .840.1.427281.3.579. 2.903 1962 Unknown [id number] 2.840.1.547248.3.579. 2.903 Private Health Insurance [id number] .840.1.563420.3.249. 13 Unknown [id number] 2.840.1.014781.3.579. 2.462 Unknown [id number] .840.1.707780.3.579. 2.462 Unknown [id number] .840.1.316013.3.579. 2.462 Unknown [id number] .840.1.773522.3.579. 2.462 Unknown [id number] 2.840.1.768164.3.579. 2.462 Unknown [id number] 2.840.1.395057.3.579. 2.462 Unknown [id number] 840.1.858224.3.579. 2.462 Unknown [id number] .840.1.091248.3.579. 2.462 Unknown [id number] 2.840.1.424493.3.579. 2.462 Unknown [id number] 2.840.1.335232.3.579. 2.462 Unknown [id number] 2.840.1.793016.3.579. 2.462 Unknown [id number] 2840.1.577674.3.579. 2.462 Unknown [id number] 2.16.840.1.033530.3.579. 2.462 Unknown [id number] 2.16.840.1.377567.3.579. 2.462 Unknown [id number] 2.16.840.1.278726.3.579. 2.462 Unknown [id number] 2.16.840.1.237685.3.579. 2.462 Unknown [id number] 2.16.840.1.549839.3.579. 2.462 Unknown [id number] 2.16.840.1.826128.3.579. 2.462 Unknown [id number] 2.16.840.1.685829.3.579. 2.462 Unknown [id number] 2.16.840.1.591720.3.579. 2.462 Unknown [id number] 2.16.840.1.937688.3.579. 2.462 Unknown [id number] 2.16.840.1.440928.3.579. 2.462 Unknown [id number] 2.16.840.1.250768.3.579. 2.462 Unknown [id number] 2.16.840.1.865301.3.579. 2.462 Unknown [id number] 2.16.840.1.686951.3.579. 2.462 Unknown [id number] 2.16.840.1.635079.3.579. 2.462 Unknown [id number] 2.16.840.1.020448.3.579. 2.462 Unknown [id number] 2.16.840.1.824179.3.579. 2.462 Unknown [id number] 2.16.840.1.640987.3.579. 2.462 Unknown [id number] 2.16.840.1.125709.3.579. 2.462 Unknown [id number] 2.16.840.1.818959.3.579. 2.462 Unknown [id number] 2.16.840.1.203643.3.579. 2.462 Unknown [id number] 2.16.840.1.711652.3.579. 2.462 Unknown [id number] 2.16.840.1.932701.3.579. 2.462 Unknown [id number] 2.16.840.1.542921.3.579. 2.462 Unknown [id number] 2.16.840.1.572746.3.579. 2.462 Unknown [id number] 2.16.840.1.714092.3.579. 2.462 Unknown [id number] 2.16.840.1.815678.3.579. 2.462 Unknown [id number] 2.16.840.1.917051.3.579. 2.462 Unknown [id number] 2.16.840.1.108602.3.579. 2.462 Unknown [id number] 2.16.840.1.951585.3.579. 2.462 Unknown [id number] 2.16.840.1.275787.3.579. 2.462 Unknown [id number] 2.16.840.1.920841.3.579. 2.462 Unknown [id number] 2.16.840.1.676403.3.579. 2.462 Unknown [id number] 2.16.840.1.007612.3.579. 2.462 Unknown [id number] 2.16.840.1.748117.3.579. 2.462 Unknown [id number] 2.16.840.1.395211.3.579. 2.462 Unknown [id number] 2.16.840.1.465154.3.579. 2.462 Unknown [id number] 2.16.840.1.420698.3.579. 2.462 Unknown [id number] 2.16.840.1.685457.3.579. 2.462 Unknown [id number] 2.16.840.1.914463.3.579. 2.462 Unknown [id number] 2.16.840.1.734771.3.579. 2.462 Unknown [id number] 2.16.840.1.861913.3.579. 2.462 Unknown [id number] 2.16.840.1.819054.3.579. 2.462 Unknown [id number] 2.16.840.1.241184.3.579. 2.462 Unknown [id number] 2.16.840.1.603405.3.579. 2.462 Unknown [id number] 2.16.840.1.734510.3.579. 2.462 Unknown [id number] 2.16.840.1.728509.3.579. 2.462 Unknown [id number] 2.16.840.1.043016.3.579. 2.462 Unknown [id number] 2.16.840.1.144421.3.579. 2.462 Unknown [id number] 2.16.840.1.788367.3.579. 2.462 Unknown [id number] 2.16.840.1.860081.3.579. 2.462 Unknown [id number] 2.16.840.1.634065.3.579. 2.462 Unknown [id number] 2.16.840.1.917277.3.579. 2.462 Unknown [id number] 2.16.840.1.509279.3.579. 2.462 Unknown [id number] 2.16.840.1.560495.3.579. 2.462 Unknown [id number] 2.16.840.1.803147.3.579. 2.462 Unknown [id number] 2.16.840.1.801977.3.579. 2.462 Unknown [id number] 2.16.840.1.656351.3.579. 2.462 Unknown [id number] 2.16.840.1.362345.3.579. 2.462 Unknown [id number] 2.16.840.1.725086.3.579. 2.462 Unknown [id number] 2.16.840.1.548190.3.579. 2.462 Unknown [id number] 2.16.840.1.719908.3.579. 2.462 Unknown [id number] 2.16.840.1.608732.3.579. 2.462 Unknown [id number] 2.16.840.1.469822.3.579. 2.462 Social History Date Type Detail Facility Start: 05-05-1996 End: 08-24-2023 Tobacco smoking status MEIS Current every day smoker [facility] Work Phone: Start: 05-05-1996 End: 10-08-2023 History of tobacco use Cigarette Smoker [facility] Work Phone: Start: 09-05-2017 End: 03-12-2024 Cigarettes smoked current (pack per day) - Reported [facility] Start: 1960 Sex Assigned At Not on file [facility] Work Phone: Start: 05-05-2016 Alcohol Comment Occassionally [facility] Start: 09-14-2018 End: 09-15-2024 Tobacco smoking status MEIS Former smoker [facility] Start: 04-17-2019 End: 12-06-2019 Alcohol intake Current drinker of alcohol (finding) [facility] Start: 01-14-2019 End: 09-29-2020 History SDOH Social Connections Get Together 4 [facility] Start: 01-14-2019 End: 05-12-2021 History SDOH Food Worry 1 [facility] Start: 05-05-1996 End: 11-28-2022 Tobacco smoking status MEIS Current some day smoker [facility] Start: 10-25-2021 End: 10-25-2022 Exposure to SARS-CoV-2 (event) Not sure [facility] Start: 12-06-2019 End: 12-26-2023 Tobacco use and exposure Never used [facility] Start: 09-29-2020 History SDOH Financial 5 [facility] Start: 05-12-2021 End: 11-18-2021 History SDOH Social Connections Phone 2 [facility] Start: 04-06-2022 End: 07-29-2024 Alcohol intake Ex-drinker (finding) [facility] Start: 06-13-2022 End: 11-28-2022 Tobacco Comment I am down to 4 cigerettes a day [facility] Start: 05-12-2021 End: 03-12-2024 Social connection and isolation panel [facility] Frequency of Social Gatherings with Friends and Family Not on file [facility] How often to you hav e a drink containing alcohol? Monthly or less [facility] How many standard drinks containing alcohol do you have on a typical day? 1 or 2 [facility] How often do you hav e 6 or more drinks on 1 occasion? Never [facility] (I/We) worried rudy er (my/our) food would run out before (I/we) got money to buy more. Never true [facility] In the past 12 month s, was there a time when you were not able to pay the mortgage or rent on time? No [facility] Start: 12-04-2017 Gender identity Identifies as female gender (finding) [facility] Start: 12-04-2017 Sexual orientation Heterosexual (finding) [facility] Start: 05-05-1996 End: 10-08-2023 History of tobacco use Current smoker [facility] Start: 08-14-2024 End: 09-15-2024 Sex Female (finding) [facility] Start: 1960 Sex Assigned At Female [facility] Medical Equipment Procedure Code Equipment Code Equipment Origin al Text Equipment Identifier Dates EGD, with monitored anesthesia care FDA Start: 07-24-2024 EGD, with monitored anesthesia care [id number] FDA Start: 08-03-2024 EGD, with monitored anesthesia [...] FDA Start: 07-24-2024 Closure Perclose Prostyle - [id number] ()[id number])[id number], [id number] FDA Start: 10-09-2023 Endograft 26 X 14.5mm 12cm Excluder Comformable Trunk - [id number] ()[id number])[id number], [id number], _[id number] FDA Start: 10-09-2023 Endograft 12mm X 12cm Excluder Leg - [id number] ()[id number] 2(11)[id number])26 [id number], [id number] FDA Start: 10-10-2023 Comment on above: Description: RIGHT E XTENDER Endograft 12mm X 14cm Contralateral Leg Excluder [id number] - [id number] ()[id number])[id number](17)26 [id number], [id number] FDA Start: 10-10-2023 Comment on above: Description: LEFT CO NTRALATERAL LEG Stent 6 X 39mm 1 35cm Viabahn Vbx - [id number] ()[id number])[id number](21)24 [id number], [id number] FDA Start: 10-09-2023 Comment on above: Description: LEFT RE NAL Tray 14fr 24cm S plit Cath Iii - [id number] Start: 02-01-2024 Graft 20 X 10mm 40cm Hemashield Bifurcated - [id number] ()[id number] 6(11)[id number](17)28 0930(10)[id number](21) [id number], [id number] FDA Start: 01-24-2024 Hemostat 2 X 4in Surgicel [facility] - [id number](36)[id number])10 0XR5, [id number] FDA Start: 01-24-2024 Syringe 10ml Pre-Filled 5pk Bioglue - [id number] Start: 01-24-2024 Goals Date Patient Goal Desired Activity /State Functional Status Date Assessment Result Facility 08-17-2024 Functional status Bedrest [facility] Work Phone: 08-13-2024 Functional status Bedrest [facility] Work Phone: 07-29-2024 Functional status Bedrest [facility] Work Phone: Mental Status Date Assessment Result Facility 08-17-2024 Cognitive function Voice/Name [facility] Work Phone: 08-13-2024 Cognitive function Voice/Name [facility] Work Phone: 07-29-2024 Cognitive function Voice/Name [facility] Work Phone: 07-18-2024 Cognitive function Awake;Drowsy [facility] Work Phone: Clinical Notes 07-29-2020 to 09-15-2024 Sol Huerta RN - 08/23/2024 4:25 PM EDT Note Date & Type Note Facility 09-15-2024 Radiology Diagnostic study note [facility] 08-23-2024 History of Present illness Narrative Call [...] 12 mo f/u. documented in this encounter [facility] 08-17-2024 Discharge summary Note Date/Time August 17, 2024 9:32am [facility] Medical Records Department [address] [place] [address] Discharge Summary 08/17/24 0922 MR#: [id number] Acct: [id number] Name: SCOTT OBREGON Rep #:[id number] : 1960 64 From: Nikolas Bradley PCP: Millie Massey MD Status:ADM IN Location: [facility] [place] [address] Providers Date of Admission: 08/14/24 Date of [...] had recovery. Patient on dialysis every Monday. [employer] consulted 08/15: She feels much better after dialysis. 08/16: GPC possible Enterococcus 11,000?25. Growing GNR lactose interactive media marketing specialist 1000-10,000 mixed organisms suggestive of contamination and [...] advanced directive but has legal power of estate planning attorney for health.. After discussion of benefits/risks [...] Culture - Preliminary Enterococcus faecium GNR lactose interactive media marketing specialist 08/14/24 08:50 Blood Culture (Wb) - Anticubital [...] 73.5 H, Lymph % (Auto) 13.4 L, [place] % (Auto) 7.0, Eos % (Auto) 3.4, [...] bisacodyl 10 mg rectal suppository 10 mg OR DAILY PRN constipation 07/31/24 cholecalciferol (vitamin D3) [...] acetaminophen 650 mg rectal suppository 650 mg OR Q4H PRN fever or pain 08/14/24 dextrose 40 % oral gel (Glucose Gel) 10 g PO Q15M PRN hypoglycemia 08/14/24 mirtazapine 15 mg tablet 15 mg PO QHS 08/14/24 sodium phosphates 19 gram-7 gram/118 mL enema (Enema) 118 ml OR DAILY PRN constipation 08/14/24 IV with Additives [...] 73.5 H, Lymph % (Auto) 13.4 L, [place] % (Auto) 7.0, Eos % (Auto) 3.4, [...] Culture - Preliminary Enterococcus faecium GNR lactose interactive media marketing specialist 08/14/24 08:50 Blood Culture (Wb) - Anticubital [...] tx acetaminophen 650 mg suppository 650 mg OR Q4H PRN (Reason: fever or pain) Enema 19-7 gram/118 mL enema 118 ml OR DAILY PRN (Reason: constipation) Rx Instructions: NEEDED [...] DISTRESS) bisacodyl 10 mg suppository 10 mg OR DAILY PRN (Reason: constipation) glucagon HCl [Glucagon [...] NH/Intermed Care Charges/Coding Visit Charges Inpatient E&M: 18808 Disch Hosp >30min 08/17/24 0932 <Electronically signed by Nikolas Magaña MD> Cosigner Signature (if applicable): CC: Dr. Nikolas Magaña MD; Millie Massey MD~ Signed [facility] Work Phone: 1(961) 365-371503-22-2025 Discharge summary Author Nikolas Magaña [facility] Note Date/Time August 17, 2024 9:2 2am [facility] Medical Records Department [address] [place] [address] Transfer to [facility] MR#: [id number] Acct: [id number] Name: SCOTT OBREGON Rep #:[id number] : 1960 64 From: Nikolas Bradley PCP: Millie Massey MD Status:ADM IN Certification of patient admission REQUIRED AT TIME OF ADMISSION. I CERTIFY THAT POST-HOSPITAL ECF SERVICES ARE REQUIRED TO BE GIVEN ON AN IN-PATIENT BASIS BECAUSE OF THE ABOVE NAMED PATIENT'S NEED FOR RESIDENTIAL CARE ON A CONTINUING BASIS FOR THE CONDITION(S) FOR WHICH HE/SHE WAS RECEIVING IN-PATIENT HOSPITAL SERVICES PRIOR TO HIS/HER TRANSFER TO THE ECF. 08/17/24 0922<Electronically signed by Nikolas Magaña MD> Diet Diet [...] had recovery. Patient on dialysis every Monday. [employer] consulted 08/15: She feels much better after dialysis. 08/16: GPC possible Enterococcus 11,000?25. Growing GNR lactose interactive media marketing specialist 1000- 10,000 mixed organisms suggestive of contamination [...] advanced directive but has legal power of estate planning attorney for health.. 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 08/14/24 07:35 Mucosa - Nose SARS-CoV-2, Influenza [...] 76.6 H, Lymph % (Auto) 10.9 L, [place] % (Auto) 7.0, Eos % (Auto) 2.4, Baso % (Auto) 0.7, Absolute Neuts (auto) 3.2, Absolute Lymphs (auto) 0.45 L, Nucleated RBC % 0, [place]isocytosis1+, [place] [address] H, Triglycerides 71, Cholesterol 62, LDL Cholesterol, [...] as tolerated to Regular with texture/consistency per BRICKMASON HELPER when medically able for pleasure. Discharge Plan Admission Admit Date/Time: 08/14/24 11:52 Attending Provider: Nikolas Magaña Primary Care Provider: Millie Massey Consulting Providers: Angie Torres Instructions Patient Instructions: RAD RN Thoracentesis Dc Discharge Orders/Prescriptions Prescriptions: New [...] tx acetaminophen 650 mg suppository 650 mg OR Q4H PRN (Reason: fever or pain) Enema 19-7 gram/118 mL enema 118 ml OR DAILY PRN (Reason: constipation) Rx Instructions: NEEDED [...] DISTRESS) bisacodyl 10 mg suppository 10 mg OR DAILY PRN (Reason: constipation) glucagon HCl [Glucagon [...] Angie Torres MD; Millie Massey MD ~ [facility] Work Phone: 1(614) 751-915703-22-2025 [facility]03-21-2025 Progress note Author Nikolas Magaña [facility] Note Date/Time August 16, 2024 3:3 0pm [facility] Medical Records Department [address] [place] [address] Progress Note - Hospitalist 08/16/24 1522 MR#: [id number] Acct: [id number] Name: SCOTT OBREGON Rep #:[id number] : 1960 64 From: Nikolas Bradley PCP: Millie Massey MD Status:ADM IN Location: [place] [address] Reason for Visit Reason for Visit: Diagnoses [...] % (Auto) 69.9, Lymph % (Auto)12.7 L, [place] % (Auto) 10.5 H, Eos % (Auto) [...] Preliminary GPC Poss Enterococcus sp GNR lactose interactive media marketing specialist 08/15/24 09:19 Fluid - Pleural (Lung) Gram [...] Ms. ESPINOSA on the phone inclusions of field case manager, social science teacher and patient's nurse. Patient not short of [...] had recovery. Patient on dialysis every Monday. [employer] consulted 08/15: She feels much better after dialysis. 08/16: GPC possible Enterococcus 11,000?25. Growing GNR lactose interactive media marketing specialist 1000- 10,000 mixed organisms suggestive of contamination [...] advanced directive but has legal power of estate planning attorney for health.. 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 08/14/24 07:35 Mucosa - Nose SARS-CoV-2, Influenza [...] 76.6 H, Lymph % (Auto) 10.9 L, [place] % (Auto) 7.0, Eos % (Auto) 2.4, Baso % (Auto) 0.7, Absolute Neuts (auto) 3.2, Absolute Lymphs (auto) 0.45 L, Nucleated RBC % 0, [place]isocytosis1+, [place] [address] H, Triglycerides 71, Cholesterol 62, LDL Cholesterol, [...] both sisters Sriram and Laisha along with field case manager and social science teacher and patient's nurse for more than 20 [...] active complex medical conditions), discussion with the benzol operator, review of labs and imaging is 45minutes. Visit Charges Inpatient E&M: 74133 Subs Hosp L3 08/16/24 1530 <Electronically signed by Nikolas Magaña MD> Cosigner Signature (if applicable): CC: ~ Signed [facility] Work Phone: 1(802) 480-919303-20-2025 Consult note Author Meghan Alfaro [facility] Note Date/Time August 15, 2024 9:3 5pm [facility] Medical Records Department [address] [place] [address] Consultation - Nephrology 08/15/24 1138 MR#: [id number] Acct: [id number] Name: SCOTT OBREGON Rep #:[id number] : 1960 64 From: Meghan MOORE PCP: Millie Massey MD Status:ADM IN Location: [place] [address] Documented by User: OSCAR Hayward 08/15/24 11:53 Assessment & Plan Assessment/Plan (1) End stage renal disease: (2) Pleural effusion: PLAN: Plan ESRD on hemodialysis MW. Patient underwent HD yesterday and only able to tolerate ~1.7L fluid removal, we were trying to attempt more fluid removal but limited due to low bps. Even with midodrine bps did not improve much. Patient is off antihypertensives. Patient had thoracentesis this morning with ~500ml fluid removed. I contacted patient's POA Sriram ([phone]), who also had other sister Geeta (from [place]) in on phone conversation and I updated [...] ESRD who currently dialyzes Monday schedule at [facility] [place] via tunneled hemodialysis catheter who presented back to the emergency room yesterday from [facility] with complaints of worsening shortness of breath. Chestx-ray in the emergency room showing pulmonary edema, bilateral pleural effusions. Patient had dialysis yesterday, only able to tolerate about 1.7L fluid removal. Had thoracentesis with around 500ml fluid removed. Patient alert,drowsy, no complaints today. [facility] Medical History (Updated 08/15/24 @ 11:44 by [...] bisacodyl 10 mg rectal suppository 10 mg OR DAILY PRN constipation 07/31/24 Unknown History cholecalciferol [...] release acetaminophen 650 mg rectal 650 mg OR Q4H PRN fever or pain 08/14/24 Unknown History suppository dextrose 40 % oral gel (Glucose 10 g PO Q15M PRN hypog lycemia 08/14/24 Unknown History Gel) mirtazapine 15 mg tablet 15 mg PO QHS 08/14/24 Unknow n History sodium phosphates 19 gram-7 118 ml OR DAILY PRN consti pation 08/14/24 Unknown History [...] 76.6 H, Lymph % (Auto) 10.9 L, [place] % (Auto) 7.0, Eos % (Auto) 2.4, Baso % (Auto) 0.7, Absolute Neuts (auto) 3.2, Absolute Lymphs (auto) 0.45 L, Nucleated RBC % 0, [place]1+, [place] [address] H, Triglycerides 71, Cholesterol 62, LDL Cholesterol, [...] thoracentesis. No evidence of pneumothorax. Reading Location: [facility] Documented by User: Dr. Angie Torres MD 08/15/24 21:35 Assessment & Plan Assessment/Plan (1) End stage renal disease: (2) Pleural effusion: PLAN: Plan ESRD on hemodialysis MW. Patient underwent HD yesterday and only able to tolerate ~1.7L fluid removal, we were trying to attempt more fluid removal but limited due to low bps. Even with midodrine bps did not improve much. Patient is off antihypertensives. Patient had thoracentesis this morning with ~500ml fluid removed. I contacted patient's WILMAR Savage ([phone]), who also had other sister Geeta (from [place]) in on phone conversation and I updated [...] HPI Consult Data Date of Consult: 08/15/24 [facility] Medical History (Updated 08/15/24 @ 11:44 by Meghan Alfaro, BRAYDEN-C) End stage renal disease Anasarca Chronic anemia [...] bisacodyl 10 mg rectal suppository 10 mg OR DAILY PRN constipation 07/31/24 Unknown History cholecalciferol [...] release acetaminophen 650 mg rectal 650 mg OR Q4H PRN fever or pain 08/14/24 Unknown History suppository dextrose 40 % oral gel (Glucose 10 g PO Q15M PRN hypog lycemia 08/14/24 Unknown History Gel) mirtazapine 15 mg tablet 15 mg PO QHS 08/14/24 Unknow n History sodium phosphates 19 gram-7 118 ml OR DAILY PRN consti pation 08/14/24 Unknown History [...] Torres MD> CC: Millie Massey MD~ Signed [facility] Work Phone: 1(767) 805-375703-20-2025 Progress note Author Nikolas Magaña [facility] Note Date/Time August 15, 2024 5:2 2pm [facility] Medical Records Department [address] [place] [address] Progress Note - Hospitalist 08/15/24 0811 MR#: [id number] Acct: [id number] Name: SCOTT OBREGON Rep #:[id number] : 1960 64 From: Nikolas Bradley PCP: Millie Massey MD Status:ADM IN Location: [place] [address] Reason for Visit Reason for Visit: Diagnoses [...] 79.5 H, Lymph % (Auto) 8.6 L, [place] % (Auto) 6.1, Eos % (Auto) 1.9, [...] Sl. Cloudy, Urine pH 8.0, Ur Specific [place] 1.010, Urine Protein 30 H, Urine Glucose [...] 76.6 H, Lymph % (Auto) 10.9 L, [place] % (Auto) 7.0, Eos % (Auto) 2.4, Baso % (Auto) 0.7, Absolute Neuts (auto) 3.2, Absolute Lymphs (auto) 0.45 L, Nucleated RBC % 0, [place]1+, [place] [address] H, Triglycerides 71, Cholesterol 62, LDL Cholesterol, [...] excluded. 2. Bilateral pleural effusions. Reading Location: [facility] Physical Exam Narrative Physical exam General: [...] had recovery. Patient on dialysis every Monday. [employer] consulted 08/15: She feels much better after [...] advanced directive but has legal power of estate planning attorney for health.. 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 08/14/24 07:35 Mucosa - Nose SARS-CoV-2, Influenza [...] 76.6 H, Lymph % (Auto) 10.9 L, [place] % (Auto) 7.0, Eos % (Auto) 2.4, Baso % (Auto) 0.7, Absolute Neuts (auto) 3.2, Absolute Lymphs (auto) 0.45 L, Nucleated RBC % 0, [place]isocytosis1+, [place] [address] H, Triglycerides 71, Cholesterol 62, LDL Cholesterol, [...] Glucose 90 Charges/Coding Visit Charges Inpatient E&M: 34327 Subs Hosp L2 08/15/24 1710 <Electronically signed [...] Cosigner Signature (if applicable): cc: ~* Signed [facility] Work Phone: 1(912) 160-812603-20-2025 History of Present illness Narrative* Jennifer Hernandez [...] coordinate transition of care. documented in this [id number] [facility]03-20-2025 Radiology Diagnostic study [facility]03-19-2025 Discharge summary Author Ciaran Rodrigez [facility] Note Date/Time August 14, 2024 5:1 2pm [facility] Medical Records Department [address] [place] [address] Emergency Department Summary 08/14/24 MR#: [id number] Acct: [id number] Name: SCOTT OBREGON Rep #:[id number] : 1960 64 From: Ciaran schneiderett DO PCP: Millie Massey MD Status:ADM IN Location: [place] [address] HPI History of Present Illness Chief Complaint: Shortness of Breath Narrative Narrative: Chief complaint and HPI: Shortness of breath. 64-year-old female with history of ESRD on HD Monday, Monday, Monday, failure to thrive with PEG tube, AAA, factor V Leiden, HLD presents for evaluation of shortness of breath. Patient resides at [facility]. Per their report patient became short [...] intact Psych: Cooperative, appropriate mood and affect [facility] Medical History (Updated 08/14/24 @ 12:[address] 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 Cloudy Urine pH 8.0 Ur Specific [place] 1.010 Urine Protein 30 H Urine Glucose [...] (Auto) Neut % (Auto) Lymph % (Auto) [place] % (Auto) Eos % (Auto) Baso % [...] Color Urine Clarity Urine pH Ur Specific [place] Urine Protein Urine Glucose (UA) Urine Ketones [...] excluded. 2. Bilateral pleural effusions. Reading Location: [facility] Discharge Plan Disposition Disposition: Acute Care [facility] Discharge Date/Time: 08/14/24 12:48 What to do if you have Problems For any increased pain, shortness of breath, bleeding, nausea or vomiting, chestpain, or any unexpected problems, contact your Primary Care Provider. Call [facility] ([phone]) or report to the closest Emergency Room. Call 911 if necessary. 08/14/24 0592 <Electronically signed by Ciaran Klusty-Nico DO> Cosigner Signature (if applicable): CC: Millie Massey MD ~ Signed [facility] Work Phone: 1(364) 637-964203-19-2025 History and physical note Author Nikolas Magaña [facility] Note Date/Time August 14, 2024 1:0 0pm [facility] Medical Records Department [address] [place] [address] H&P Exam - Hospitalist 08/14/24 1221 MR#: [id number] Acct: [id number] Name: SCOTT OBREGON Rep #:[id number] : 1960 64 From: Nikolas Bradley PCP: Millie Massey MD Status:ADM IN Location: [place] [id number] HPI - General General Date of Admission: 08/14/24 Date of Service: 08/14/24 Chief Complaint: Shortness of breath, could not breathe HPI Narrative SCOTT OBREGON, is a 64 F who was just discharged yesterday to [facility] came to ED feeling shortness of breath, [...] Patient is admittedfor pulmonary edema/anasarca. Need hemodialysis [facility] Medical History (Updated 08/14/24 @ 12:[address] 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 Cloudy, Urine pH 8.0, Ur Specific [place] 1.010, Urine Protein 30 H, Urine Glucose [...] excluded. 2. Bilateral pleural effusions. Reading Location: [facility] Assessment & Plan Assessment/Plan (1) Pulmonary [...] advanced directive but has legal power of estate planning attorney for health.. After discussion of benefits/risks [...] shock if needed Total time spent in bhpe-yh-dyle encounter in discussion of advanced directive 17 minutes. Charges/Coding Visit Charges Inpatient E&M: 66857 Init Hosp L3 Procedures Hospitalists Procedures: 03179 Advncd Care Plan 30 Min 08/14/24 1300 <Electronically signed by Nikolas Magaña MD> Cosigner Signature (if applicable): CC: Dr. Nikolas Magaña MD; Millie Massey MD~ Signed [facility] Work Phone: 1(113) 705-330603-19-2025 Radiology Diagnostic study [facility]03-18-2025 [facility]03-03-2025 Note [facility]02-25-2025 Evaluation note* Diagnosis Onset Date Resolution Status Admit Date End stage renal disease resolved F ebruary 2024 5:23pm Chronic anemia inactive June 302024 5:23pm Leukocytosis inactive June 5:23pm Open abdominal wall wound inactive July 23, 2024 5:23pm Unspecified severe protein-calorie malnutrition inactive Jun ruary 2024 5:23pm ABLA (acute blood loss [...] resolved M 2024 3:42pm Hypoglycemia resolved July 31, 025 3:42pm Raynaud disease inactive July 3:42pm Anasarca acute August 14 11:52am Pleural effusion acute August 142024 11:52am Pulmonary edema acute July 11:52am End stage renal disease resolved [facility] 2024 11:52am [facility] Work Phone: 1(175) 109-786502-05-2025 NoteShoot thanks. AUTHENTICATED BY YING QUISPE ON 07/03/2024 13:05:25[facility] [id number] History of Present illness Narrative* Ying Quispe DO - 07/03/2024 1:05 PM EST Shoot thanks. * Codie Garcia, RN - 07/03/2024 11:12 AM EST Care Management Referral received from PCP office ESTHER/Angela- spoke with John mills- he confirms that referral received but pt chose to go with another [facility]. Spoke with pt introduced self, role and [...] (!) 147/68 02/25/24 100/67 documented in this [id number] History of Present illness Narrative* Codie Garcia RN - 07/02/2024 10:53 AM EST Care Management Referral received from PCP office 07/02/24 first attempt to contact Scott Obregon regarding Transition of Care Follow Up. Unable to initiate due to No Answer, Left Message, I will continue to try later Provided Care Management Introduction Letter, Today via Clifford [email or web address]- attempted to contact unsuccessfully, left voice message with contact information provided. BP Readings from Last 3 Encounters: 04/04/24 (!) 82/60 03/20/24 (!) 147/68 02/25/24 100/67 No future appointments. documented in this [id number] Evaluation note* Diagnosis Onset Date Resolution Status [...] July 11:52am End stage renal disease resolved [facility] 2024 11:52am [facility] Work Phone: 1(524) 978-606612-03-2024 Evaluation note* Diagnosis Onset Date Resolution Status Admit Date Unspecified severe protein-calorie malnutrition inactive Apr 1:29pm Eschar of toe acute May 2:56pm PAD (peripheral artery disease) acut e June 05, 2024 2:56pm S/P AAA repair acute May 2:56pm Chronic anemia inactive June 302024 5:23pm End stage renal disease inactive F ebru2024 5:23pm Leukocytosis inactive June 5:23pm Open abdominal [...] 2024 3:42pm End stage renal disease inactive [facility] 2024 3:42pm Anasarca acute August 14 11:52am Pulmonary edema acute July 11:52am [facility] Work Phone: 1(824) 947-832112-03-2024 Evaluation note* Diagnosis Onset Date Resolution Status Admit Date Unspecified severe protein-calorie malnutrition inactive Apr 1:29pm Eschar of toe acute May 2:56pm PAD (peripheral artery disease) acut e June 05, 2024 2:56pm S/P AAA repair acute May 2:56pm End stage renal disease acute F ebruary 2024 5:23pm Chronic anemia inactive [...] 31 3:42pm End stage renal disease acute [facility] 2024 3:42pm Factor V Leiden acute July 3:42pm GI bleed acute July 31 3:42pm Hypoglycemia acute July 31, 2 025 3:42pm Raynaud disease acute July 3:42pm Chronic kidney disease with end stage renal 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 chronic July 31, 2024 3:42pm Anasarca acute August 14 11:52am End stage renal disease acute [facility] 2024 11:52am Pleural effusion acute August 142024 11:52am Pulmonary edema acute July 11:52am [facility] Work Phone: 1(438) 638-235411-08-2024 History of Present illness Narrative* Corrina Dawn MA - 04/05/2024 2:45 PM EST Referral for hospice care and office note from Cate Contreras CNP 04/04/24 faxed to [facility] [phone]. documented in this [id number] History of Present illness Narrative* Cate Contreras CNP - 04/04/2024 10:00 AM EST Images from the original note were not included. Office Visit Patient Name: Scott Obregon MR #: [id number] Assessment/Plan: I saw Scott in the office [...] requiring iHD, wound necrosis who presented to [facility] from [facility] on 03/12/2024 with concerns for [...] 1 tablet by mouth every morning . JFSEAGWM-VYV-UFAP FUM-FOLIC AC (THERA-M) 19 MG IRON- 400 [...] and affect as above Cate Contreras CNP [phone] documented in this [id number] NoteOffice Visit Patient Name: Scott Obregon MR #: [id number] Assessment/Plan: I saw Scott in the office [...] requiring iHD, wound necrosis who presented to [facility] from [facility] on 03/12/2024 with concerns for wound dehiscence. She underwent Debridement Of Abdominal Wound With Wound Vac Placement on 03/14/[address] Guerar. Patient discharged to SNF. Her family called [...] 1 tablet by mouth every morning . DABEJYDP-MDQ-FAYG FUM-FOLIC AC (THERA-M) 19 MG IRON- 400 MCG TAB Take 1 tablet by mouth every morning . MULTIVITAMIN (THERAGRAN) PER TABLET Take 1 (one) tablet by mouth daily . ONDANSETRON (ZOFRAN) 4 MG TABLET Take 1 (one) t (more content not included)... [facility]2024 Note [facility]10-20-[facility] 03-17-[facility]2024 Note [facility]10-18-2024 [facility] 03-15-20[facility]2024 [facility]10-17-20[facility]2024 [facility]-16-[facility] 03-13-2024 [facility]09-29-20[facility]28-2024 Note [facility]09-28-2024 [facility]-23-20[facility] Jrkmpirj16-74-4870 [facility] Jforvsnt05-06-2204 [facility] Rsdnxyml21-30-7787 [facility] Hmxjwroz70-85-0485 [facility] Kaagnpqg89-30-5448 Note [facility] Wkmfszqo78-44-2390 [facility] 02-22-2024 [facility] Rbsayjxq86-39-9976 [facility] Ajsrwwus36-08-9822 [facility] Kdirdahd33-63-9513 [facility] Gaxemdji68-17-5441 [facility] [place]10-07-7573 Note [facility] Qgsubghx02-04-6465 [facility] 02-19-2024 [facility] Fhxzzxxi03-52-5954 [facility] Rodkqbja34-85-7761 [facility] Afewxrrr59-75-0134 [facility] Dxexzvwy43-02-1307 [facility] Mjtfbtct38-57-4956 Note [facility] Yyfdaiaz75-28-9062 [facility] 02-18-2024 [facility] Eeuejlhn72-73-5347 [facility] Wgnvzzwc67-56-8424 [facility] Lkzkdbbs70-65-3910 [facility] Iqxrfwks51-50-1482 [facility] Tjodyzms63-93-7115 Note [facility] Fmkgjjyf88-62-0552 [facility] 02-16-2024 [facility] Xdmejvdq30-92-6345 [facility] Zgpsxmmp85-41-8132 [facility] Boazzmvq14-46-5354 [facility] Dymzmucb57-11-2327 NoteChest tube output near 0 Chest x-ray stable Patient tolerating diet No new complaints Remove chest tube Will follow serial chest x-rays/exam AUTHENTICATED BY SRI ROMAN, ON 02/15/2024 09:22:25[facility] Niroukaw97-61-4342 [facility]2024 [facility]09-18-20[facility] 02-14-2024 [facility]-17-2024 Note [facility]09-17-20[facility] 02-13-2024 [facility]-17-2024 NotePROGRESS :This report has been cancelled.[facility]-2024 Note Patient stable sleeping this a.m. Chest tube output appears to have diminished over the weekend Chest x-ray with no major changes IR lymph angiogram today AUTHENTICATED BY SRI ROMAN, ON 02/12/2024 08:21:01[facility]09-16-20[facility]2024 Note [facility]09-15-2024 [facility] 02-11-2024 [facility]-15-20[facility]-14-20[facility]-14-20[facility]-14-20[facility]-14-2024 Note [facility]09-13-2024 [facility] 02-09-2024 [facility]09-13-20[facility]-13-[facility]-2024 NotePt w/o new complaints Cxr stable Ct output lower - 95cc serous Flush tube today / pleur evac marked to ensure output accuracy Lymphangiogram planned for monday AUTHENTICATED BY SRI ROMAN, ON 02/09/2024 08:23:39[facility]09-12-20[facility]-12-2024 Note [facility] Viduofsw26-13-9862 [facility] 02-08-2024 [facility] Lzfpmoji25-01-5174 [facility] Tmocxzja65-48-9434 [facility] Oxcidubm55-48-4799 [facility] Vsnyuojx61-88-1571 [facility] Oyvxvjln43-54-9584 Note [facility] Edcxhtef78-87-4584 [facility] 02-06-2024 [facility] Errbkbla48-66-5655 [facility] Kocvwdhv71-66-7183 [facility] Rrmyjpmb03-62-8058 [facility] Lkktgtmj63-44-5915 [facility] Nnpocrex38-81-2297 Note [facility] Ofihzmgi16-60-0900 [facility] 02-05-2024 [facility] Nojjoqjo36-82-2351 [facility] Ipqqbzcj36-02-1109 [facility] Wuhazaof77-07-2900 [facility] Ujidqobl39-80-7657 [facility] Ipehdzrg91-71-8086 Note [facility] Wdtroaud77-58-7698 [facility] 02-03-2024 [facility] Klgilxpi24-15-9952 [facility] Hbmwthuz60-90-2971 [facility] Znicnxuz74-65-9554 [facility] Hujudfvs35-15-6228 [facility] Otafqgcr44-15-3421 Note [facility] Axrjulqk79-15-1887 [facility] 02-02-2024 [facility] Etbdomjr98-58-9809 [facility] Yfstcqqi16-88-7512 [facility] Kjrwshio17-66-8510 [facility] Ohvcnvpx16-50-2792 [facility] Ipwfsxjb79-69-4202 Note [facility] Kxiytvlw03-25-9175 [facility] 01-31-2024 [facility] Vhljyapx22-24-9176 [facility] Evskkqry04-08-6525 [facility]-04-2024 [facility]09-03-2024 [facility]09-03-2024 Note [facility]09-03-2024 [facility] 01-30-2024 [facility]-02-2024 [facility]-02-2024 [facility]-02-2024 [facility]09-01-2024 [facility]09-01-2024 Note [facility]09-01-2024 [facility] 01-27-2024 [facility]-31-2024 [facility]08-31-2024 [facility]08-31-2024 [facility]-30-[facility]08-30-2024 Note [facility]08-30-[facility] 01-26-2024 [facility]-29-2024 [facility]-29-2024 [facility]08-29-2024 [facility]08-29-20[facility]-2024 Note [facility]08-28-2024 [facility] 01-24-2024 [facility]-27-2024 [facility]08-27-2024 [facility]08-27-20[facility]-27-20[facility]08-26-2024 Note [facility]08-26-20[facility] 01-21-2024 [facility]-2024 History of Present illness Narrative* Rafaela Garcias RN - 01/17/2024 10:23 AM EDT Spoke with Sergei in [facility] and provided details for direct admission to [facility] on Monday01/19/24 for Endoleak of Ruptured aneurysm Endograft for medical optimization prior to planned Explant of Endograft with Open Aneurysm Repair on Monday01/24/24. documented in this [id number] History of Present illness Narrative* Rafaela Garcias [...] Guerra to admit patient to [facility] on 01/19/24 and plan for Explant of Endograft and Open Aortic Aneurysm Repair on 01/24/24. Case request made. Attempted to reach patient to notify patient of admission and surgery. No answer. Left message on voicemail with request to return call. documented in this [id number] History of Present illness Narrative* Rafaela Garcias RN - 01/11/2024 4:39 PM EDT Received request from Dr. Guerra to admit patient to [facility] on 01/19/24 and plan for Explant of Endograft and Open Aortic Aneurysm Repair on 01/24/24. Case request made. Attempted to reach patient to notify patient of admission and surgery. No answer. Left message on voicemail with request to return call. documented in this [id number] Evaluation + Plan note* Assessment & Plan [...] graft in the left renal artery dario [place] Excluder endograft. Duplex sonography demonstrated that the [...] who did her original operative procedure at [facility] and the 2 of us will come up with a therapeutic solution for this patient. I will admit her to my service and Dr. Guerra has agreed to help me with her surgery. [id number] Miscellaneous Notes* Assessment & Plan Note - [...] graft in the left renal artery dario [place] Excluder endograft. Duplex sonography demonstrated that the [...] who did her original operative procedure at [facility] and the 2 of us will come up with a therapeutic solution for this patient. I will admit her to my service and Dr. Guerra has agreed to help me with her surgery. documented in this [id number] NoteAssessment Ruptured abdominal aortic aneurysm (AAA) (HCC) I reviewed the CT angiogram with the patient and her significant other who was in the room. 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 The patient had a ruptured abdominal aortic aneurysm that was treated with a parallel graft in the left renal artery and a [place] Excluder endograft. Duplex sonography demonstrated that the [...] who did her original operative procedure at [facility] and the 2 of us will [...] continued mortality from a ruptured aneurysm. Scott Dorand 1960 63 y.o. female who presents to [...] Aneurysm Repair; Surgeon: Edenilson Guerra DO; Location: [facility]; Service: Gen-Vascular Current Outpatient Medications [...] MG tablet Take (more content not included)... [facility]08-13-2024 History of Present illness Narrative* Sarath Rey [...] graft in the left renal artery dario [place] Excluder endograft. Duplex sonography demonstrated that the [...] who did her original operative procedure at [facility] and the 2 of us will [...] Aneurysm Repair; Surgeon: Edenilson Guerra DO; Location: [facility]; Service: Gen-Vascular Current Outpatient Medications [...] significant pain. The note was dictated using [employer] dictation system. The voice recognition software is inherently subject to errors including those of syntax and sound- alike substitutions which may escape proofreading. In such instances, original meaning may be extrapolated by contextual derivation. documented in this [id number] Instructions* Patient Instructions* Sae Esparza MA - 01/09/2024 12:30 PM EDT How to contact your Care Team: Provider: MD Ana Fernandez CNP Jill Bender, PA Nurse: Ray Guido RN To reschedule office appointments call Scheduling [phone] In case of an emergency please call 911. When in need of refills please call the phone number listed above. Please include medication name, pharmacy name and specify 30 or 90 day supply Please check with your pharmacy within 24 hours of your request for refill. You must follow up as directed to continue current refills. Thank you! documented in this [id number] History of Present illness Narrative* Ray Guido RN - 01/05/2024 3:56 PM EDT Order received from Dr. Rey for CTA, urgently due to recent AAA US results of endo leak. Patient will require hydration and IV dye allergy protocol. Patient aware that she will be receiving a call with date and time of CTA for next week. documented in this [id number] History of Present illness Narrative* Michelle Littlejohn, [facility],PharmD - 01/03/2024 8:03 AM EDT Images from the original note were not included. Anticoagulation Progress Note Date of Visit: January 03, 2024 Patient Name: Scott Obregon : 1960 Age: 63 y.o. Scott Obregon had her INR checked and result called in by her home health nurse, Makenzie, from [facility]. Anticoagulation Summary As of 01/03/2024 INR goal: 2.0-3.0 TTR: 78.8% (11.6 mo) INR used for dosin.7 (01/03/2024) Warfarin maintenance plan: 2.5 mg (5 mg x 0.5) every Mon, Fri; 5 mg (5 mg x 1) all other days Weekly warfarin total: 30 mg Plan last modified: Michelle Littlejohn, [facility],PharmD (01/03/2024) Next INR check: 01/10/2024 Priority: High [...] contact clinic with any changes. Michelle Littlejohn RPh,Alfredo [facility] Dept: [phone] documented in this [id number] History of Present illness Narrative* Michelle Littlejohn RPh, PharmD - 12/27/2023 12:28 PM EDT Anticoagulation Progress [...] 27.5 mg Plan last modified: Michelle Littlejohn RPh,[facility] (12/21/2023) Next INR check: 01/03/2024 Priority: High [...] clinic with any changes. Michelle Littlejohn RPh,PharmD [facility] Dept: [phone] documented in this [id number] Evaluation + Plan note* Assessment & Plan [...] ultimately heal. 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 I also gave her a prescription for a handicap sticker to help with her fatigue. 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 [id number] Miscellaneous Notes* Assessment & Plan Note - [...] ultimately heal. 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 I also gave her a prescription for a handicap sticker to help with her fatigue. 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 documented in this [id number] NoteAssessment Ruptured abdominal aortic aneurysm (AAA) (HCC) The patient continues to recover from a heroic endovascular procedure to save her life. 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 I also gave her a prescription for a handicap sticker to help with her fatigue. 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 I also sent a consultation to Dr. Yisel Paiz because the patient has tenuous renal function and will need to be followed longitudinally. Scott Stringererd 1960 63 y.o. female who presents to the office in followup of placement of an aortic stent graft and a left renal artery stent for ruptured abdominal aortic aneurysm. The patient was life flighted from [place] to [facility] where Dr. Bart Guerra and Dr. Tylor [...] Aneurysm Repair; Surgeon: Edenilson Guerra DO; Location: [facility]; Service: Gen-Vascular Current Outpatient Medications [...] Mother Breast cancer Sister (more content not included)...[facility] 12-26-2023 History of Present illness Narrative* Sarath [...] ultimately heal. 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 I also gave her a prescription [...] aneurysm. The patient was life flighted from [place] to [facility] where Dr. Bart Guerra and Dr. Tylor [...] Aneurysm Repair; Surgeon: Edenilson Guerra DO; Location: [facility]; Service: Gen-Vascular Current Outpatient Medications [...] Admin Instructions 2.5mg on //F 5mg on /// RE-CHECK ON 12/20/23 . [...] significant pain. The note was dictated using LifeWave dictation system. The voice recognition software is inherently subject to errors including those of syntax and sound- alike substitutions which may escape proofreading. In such instances, original meaning may be extrapolated by contextual derivation. documented in this [id number] Instructions* Patient Instructions* Sae Esparza MA - 12/26/2023 11:53 AM EDT How to contact your Care Team: Provider: MD Ana Fernandez CNP Jill Bender, PA Nurse: Ray Guido RN To reschedule office appointments call Scheduling [phone] In case of an emergency please call 911. When in need of refills please call the phone number listed above. Please include medication name, pharmacy name and specify 30 or 90 day supply Please check with your pharmacy within 24 hours of your request for refill. You must follow up as directed to continue current refills. Thank you! documented in this [id number] NoteBmp is stable no change in meds see how she's doing please AUTHENTICATED BY YING QUISPE, ON 12/22/2023 06:40:[address] [place] [address] 12-21-2023 History of Present illness Narrative* Michelle Littlejohn, [facility],PharmD - 12/21/2023 12:40 PM EDT Anticoagulation Progress Note Date of Visit: December 21, 2023 Patient Name: Scott Obregon : 1960 Age: 63 y.o. Scott Obregon was called for an anticoagulation follow-up visit. INR obtained via venipuncture. Patient had a POC fingerstick INR done yesterday by her home health nurse, Adilene, from [facility]. Fingerstick INR result was 4.4, so it was recommended that patient have a venipuncture comparison. Nurse was unable to do blood draw yesterday, so patient went to [facility] this morning. Anticoagulation Summary As of 12/21/2023 INR goal: 2.0-3.0 TTR: 79.6% (11.2 mo) INR used for dosin.9 (12/21/2023) Warfarin maintenance plan: 2.5 mg (5 mg x 0.5) every Mon, Wed, Fri; 5 mg (5 mg x 1) all other days Weekly warfarin total: 27.5 mg Plan last modified: Michelle Littlejohn, [facility],PharmD (12/21/2023) Next INR check: 12/27/2023 Priority: High [...] next Monday. Patient is due for a cwmd-ps-zdpl visit in clinic, but according to nurse, Adilene, patient will likely be discharged from home [...] contact clinic with any changes. Michelle Littlejohn RPh,Alfredo [facility] Dept: [phone] documented in this [id number] History of Present illness Narrative* Michelle Littlejohn RPh, PharmD - 12/13/2023 1:13 PM EDT Images from the original note were not included. Anticoagulation Progress Note Date of Visit: December 13, 2023 Patient Name: Scott Obregon : 1960 Age: 63 y.o. Scott Obregon Had her INR checked and result called in by her home health nurse, Makenzie, from [facility]. Anticoagulation Summary As of 12/13/2023 INR goal: 2.0-3.0 TTR: 81.6% (10.9 mo) INR used for dosin.1 (12/13/2023) Warfarin maintenance plan: 2.5 mg (5 mg x 0.5) every Mon, Wed, Mon; 5 mg (5 mg x 1) all other days Weekly warfarin total: 27.5 mg Plan last modified: Michelle Littlejohn RPh,PharmKirk (12/13/2023) Next INR check: 12/20/2023 Priority: High [...] clinic with any changes. Michelle Littlejohn RPh,PharmD [facility] Dept: [phone] documented in this [id number] History of Present illness Narrative* Justine Hodges [...] patient's identity and that they were in [place] at the time of the visit. I [...] that there are some limitations compared to snlu-av-wtfb evaluations. We elected to proceed. Anticoagulation Summary [...] despite a one time lower dose of 11/28 and a dose decrease, it appears that [...] clinic with any changes. Justine Hodges RPh,PharmD [facility] Dept: [phone] documented in this [id number] Telephone encounter Note* Telephone Encounter - Rachael Gipson RN - 12/06/2023 8:27 AM EDT error [id number] Miscellaneous Notes* Telephone Encounter - Rachael Gipson RN - 12/06/2023 8:27 AM EDT error documented in this [id number] History of Present illness Narrative* Adilene Bryan RPh,PharmD - 11/29/2023 12:02 PM EDT Images from the original note were not included. Anticoagulation Progress Note Date of Visit: November 29, 2023 Patient Name: Scott Obregon : 1960 Age: 63 y.o. Scott Obregon Spoke to Adilene with [facility] . INR obtained from an outside source: Home Health. Anticoagulation Summary As of 11/29/2023 INR goal: 2.0-3.0 TTR: 85.3% (10.4 mo) INR used for dosin.5 (11/29/2023) Warfarin maintenance plan: 5 mg (5 mg x 1) every day Weekly warfarin total: 35 mg Plan last modified: Adilene Bryan RPh,PharmD (11/29/2023) Next INR check: 12/06/2023 Priority: High [...] 10/21/2021 Wt Readings from Last 3 Encounters: 06/27/24 52.1 kg (114 lb 12.8 oz) 11/17/23 [...] clinic with any changes. Adilene Bryan RPh,PharmD [facility] Dept: [phone] documented in this [id number] NoteGfr 45 hemoglobin 9 will improve with nutrition and hydration recheck on next visit no change in meds thanks. AUTHENTICATED BY YING QUISPE, ON 11/27/2023 07:17:41[facility] [id number] NoteHPI Here with Hi, discharge summary below reviewed. Here 11/23/2023. Doing physical therapy at home and sn drawing pt/inr every wk at home. For weakness twice wkly following bp at home. Bp today 100/60 sitting and 110/60 standing. OT involved too. Having ct angiogram abdomen 11/2023. 15th is angiogram and the 2nd is brachial index. Tsh/t4 appreciated. [facility] DISCHARGE SUMMARY Scott Obregon Account: [id number] Admitted: 10/09/2023 Discharge Date/Time: 10/23/23 / 8:28 AM Handoff to PCP PCP to address the following Outpt Vas Surg f/u Smoking cessation Clinical Summary Scott Obregon is a 63 y.o. female with a history of Factor 5 Leiden on warfarin, Chronic Back Pain, Smoker, PVD who presented to [facility] with multiple syncopal episodes, r sided abdominal pain on 10/09/[address] abdomen pelvis without contrast showed very large ruptured infrarenal aortic aneurysm. Pt transferred to [facility] 10/09/23 for advanced surgical evaluation. [facility] was consulted 10/12/23 to assume care upon transfer from the SICU. Ruptured infrarenal abdominal aortic aneurysm: Presented with syncope, CT A/P at OSH with large ruptured intrarenal aotric aneurysm. Dr Guerra of Vas Surg performed EVAR on 10/10/23. Asa, coumadin [...] dosing PVD, Raynaud's disease: Follows with Dr Lavern. Continue outpt f/u. Chronic Back Pain with Possible Opiate Dependence: Takes percocet OP, Hypothyroidism: Per Hx. levothyroxine ordered. Smoker: 1/2 ppd. Refused patch. Motivated to quit. Severe Protein Calorie Malnutrition: Per Hx. Orchestrator consulted. Code status: Full Discharge Medications Discharge [...] Physician(s) Family: Ying Quispe DO, , Address: [address] [place] [address] / [facility] [address] Follow Up: Physicians, [facility] [address] Follow up You are scheduled for your 1 month follow up appointment with Dr. Kruger on Monday11-16-23 at 8:00 am [facility] Annabelle Abad [facility] [address] Follow up You are scheduled for your Renal ultrasound on 11-16-2023 at 9:00 am in [place] Nothing to eat/drink after midnight the night before Edenilson Guerra, [address] [place] [address] [facility] [address] Follow up in 1 month(s) Follow up in 1 month(s) [facility] [address] [place], [place] [address] Ying Quispe DO [address] [facility] (more content not included)...[facility]06-27-2024 History of Present illness Narrative* Ying Quispe, [...] the 2nd is brachial index. Tsh/t4 appreciated. [facility] Scott Obregon Account: [id number] Admitted: 10/09/2023 Discharge Date/Time: 10/23/23 / 8:28 AM Handoff to PCP PCP to address the following Outpt Vasc Surg f/u Smoking cessation Clinical Summary Scott Obregon is a 63 y.o. female with a history of Factor 5 Leiden on warfarin, Chronic Back Pain, Smoker, PVD who presented to [facility] with multiple syncopal episodes, r sided abdominal pain on 10/09/[address] abdomen pelvis without contrast showed very large ruptured infrarenal aortic aneurysm. Pt transferred to [facility] 10/09/23 for advanced surgical evaluation. [facility] was consulted10/12/23 to assume care upon transfer from the SICU. Ruptured infrarenal abdominal aortic aneurysm: Presented with syncope, CT A/P at OSH with large ruptured intrarenal aotric aneurysm. Dr Guerra of Vas Surg performed EVAR on 10/10/23. Asa, coumadin [...] quit. Severe Protein Calorie Malnutrition: Per Hx. Orchestrator consulted. Code status: Full Discharge Medications Discharge [...] Physician(s) Family: Ying Quispe DO, , Address: [address] [place] [address] / [facility] [address] Follow Up: Physicians, [facility] [address] [facility] [address] [facility] [address] Follow up You are scheduled for your 1 month follow up appointment with Dr. Kruger on Monday11-16-23 at 8:00 am [place] [address] [facility] [address] Follow up You are scheduled for your Renal ultrasound on 11-16-2023 at 9:00 am in [place] Nothing to eat/drink after midnight the night before Edenilson Guerra DO [address] [facility] [address] [facility] [address] Follow up in 1 month(s) Follow up in 1 month(s) [facility] [address] [place], [place] [address] Ying Quispe DO [address] [facility] [address] Follow up Vitals: 11/23/23 1311 11/23/23 1317 [...] Aneurysm Repair; Surgeon: Edenilson Guerra DO; Location: [facility]; Service: Gen-Vascular Social History Socioeconomic [...] mouth daily . naloxone (NARCAN) 4 mg/actuation [place] Administer 1 (one) spray (4 mg total) [...] effects of the medications. documented in this [id number] NoteNew patient - podiatry wound clinic VISIT Abigail Estrella CNP Patient Name: Scott Obregon. . Date of : 1960, 63 y.o.. Gender: female. Author: Abigail Estrella CNP Subjective: Patient is a 63-year-old female coming to wound clinic being referred by Dr. Kruger vascular surgeon at [facility] to the wound clinic for left foot necrotic ulcers. Patient sustained and underwent repair for triple abdominal aneurysm in September. She presented to [place] ED and was life flighted to [facility]. She had difficulty following up with her surgical team due to distance and she was referred to be seen by vascular surgery team here for follow-up. Patient has pending appointment with Dr. Rey December 25. Surgery at [facility] was completed by Dr. Guerra and Dr. [...] Great Toe Left (Active) Wound Image 11/22/23 140 Wound Length (cm) 0.6 cm 11/22/23 140 Wound Width (cm) 2 cm 11/22/231404 Wound Surface Area (cm^2) 1.2 cm^2 11/22/23 140 Area % Change 0 11/22/23 140 Wound Progress Initial exam 11/22/23 140 Drainage Amount None 11/22/23 1405 Odor None 11/22/23 140 Wound Bed Characteristics Dry;Black 11/22/23 1405 Zuleima-wound [...] follow-up CTA to be completed here in [place]) Continue working on tobacco cessation. Patient states she has quit smoking but cigarettes were visible in her purse I will follow-up with the patient once PAL results are available. Patient has office phone number and address available, call immediately if there are any acute changes to the left foot AUTHENTICATED BY ABIGAIL ESTRELLA, ON 11/23/2023 07:01:[address] [place] [address] 11-22-2023 History of Present illness Narrative* Abigail [...] referred by Dr. Kruger vascular surgeon at [facility] to the wound clinic for left foot necrotic ulcers. Patient sustained and underwent repair for triple abdominal aneurysm in September. She presented to [place] ED and was life flighted to [facility]. She had difficulty following up with her surgical team due to distance and she was referred to be seen by vascular surgery team here for follow-up. Patient has pending appointment with Dr. Rey December 25. Surgery at [facility] was completed by Dr. Guerra and Dr. [...] Great Toe Left (Active) Wound Image 11/22/23 140 Wound Length (cm) 0.6 cm 11/22/23 140 Wound Width (cm) 2 cm 11/22/231404 Wound Surface Area (cm^2) 1.2 cm^2 11/22/23 140 Area % Change 0 11/22/23 140 Wound Progress Initial exam 11/22/23 140 Drainage Amount None 11/22/23 1405 Odor None 11/22/23 140 Wound Bed Characteristics Dry;Black 11/22/23 1405 Zuleima-wound [...] order follow-up CTA to be completed here [facility]) Continue working on tobacco cessation. Patient states she has quit smoking but cigarettes were visible in her purse I will follow-up with the patient once PAL results are available. Patient has office phone number and address available, call immediately if there are any acute changes to the left foot documented in this [id number] Instructions* Patient Instructions* Makenzie Abrams RN - 11/22/2023 2:34 PM EDT [place] left great toe and fifth toe ulcers with Betadine, secure with Kerlix. At home continue painting toes if they become wet. Protect from injury, keep foot warm documented in this [id number] History of Present illness Narrative* Michelle Littlejohn, [place],PharmD - 11/21/2023 1:33 PM EDT Anticoagulation Progress [...] 37.5 mg Plan last modified: Adilene Bryan, ANDREA,PharmD (11/14/2023) Next INR check: 11/29/2023 Priority: High [...] clinic with any changes. Michelle Littlejohn RPh,PharmD [facility] Dept: [phone] documented in this [id number] Telephone encounter Note* Telephone Encounter - La [...] is it scheduled): 11/23/23 Please send to [facility] [address] [place], [place] - [address] [place] [address] [facility] [address] Follow up: Refill pending for review without additional follow up based on information above. [id number] Miscellaneous Notes* Telephone Encounter - La Nena [...] is it scheduled): 11/23/23 Please send to [facility] [address] [place], [place] - [address] [place] [address] [place] [address] Follow up: Refill pending for review without additional follow up based on information above. documented in this [id number] Evaluation + Plan note* Assessment & Plan [...] for her to be seen in the [place] wound center, and I have also placed a referral for her to see Dr. Sarath Rey in [place] as it is difficult for them to get to [place] for routine follow-up. We will arrange for [...] recommend her systolic be less than 130. [id number] Miscellaneous Notes* Assessment & Plan Note - [...] for her to be seen in the [place] wound center, and I have also placed a referral for her to see Dr. Sarath Rey in [place] as it is difficult for them to get to [place] for routine follow-up. We will arrange for [...] be less than 130. documented in this [id number] [facility] [address] [place] [address], [address] [place] [address] Scott Obregon is a 63 y.o.female who [...] for her to be seen in the [place] wound center, and I have also placed a referral for her to see Dr. Sarath Rey in [place] as it is difficult for them to get to [place] for routine follow-up. We will arrange for [...] Aneurysm Repair; Surgeon: Edenilson Guerra DO; Location: [facility]; Service: Gen-Vascular Family History Problem [...] mouth every 6 (si (more content not included)...[facility]06-21-2024 History of Present illness Narrative* Tylor Kruger MD - 11/17/2023 8:17 AM EDT Images from the original note were not included. [facility] [address] [place] [address], [address] [place] [address] Scott Obregon is a 63 y.o.female who [...] for her to be seen in the [place] wound center, and I have also placed a referral for her to see Dr. Sarath Rey in [place] as it is difficult for them to get to [place] for routine follow-up. We will arrange for [...] Aneurysm Repair; Surgeon: Edenilson Guerra DO; Location: [facility] OR; Service: Gen-Vascular Family History Problem Relation [...] mouth daily . naloxone (NARCAN) 4 mg/actuation [place] Administer 1 (one) spray (4 mg total) [...] result was not included. ED PROVIDER NOTE [facility] NAME: Scott Obregon AGE: 63 y.o. : 1960 VISIT DATE: 10/09/2023 CSN: [id number] PCP: Ying Quispe DO Chief Complaint Patient [...] -- 10/09/232035 -- -- -- -- (!) -- -- -- 10/09/232032 103/76 97.6 F (36.4 C) Temporal (!) 101 (!) 22 99 % -- -- 10/09/232005 (!) 84/62 -- -- (!) 106 18 98 % -- -- 10/09/231929 108/75 -- -- (!) 103 18 99 % -- -- 10/09/231833 -- -- -- -- (!) -- -- -- 10/09/231810 101/82 -- -- (!) 102 (!) 21 [...] ms QTC Calculation (Bezet) 449 ms P Bonduel 55 degrees R Bonduel 55 degrees T Bonduel 99 degrees Type and Screen Result Value Ref Range ABORh O Positive Antibody Screen Negative Specimen Expires 10/12/2023 23:59 EST Prepare RBC: 2 Units Result Value Ref Range Product ID Red Blood Cells Blood Type Code 5100 Product Code [id number] Status Info Ready for issue Unit Number [id number] Blood Type O Pos Cross Match Compatible Product ID Red Blood Cells Blood Type Code 5100 Product Code [id number] Status Info Ready for issue Unit Number [id number] Blood Type O Pos Cross Match Compatible [...] Respectfully, Tylor Kruger MD documented in this [id number] Instructions* Patient Instructions* Rachael Gipson RN - 11/17/2023 8:12 AM EDT We will see you back in the office: to follow up with Dr. Rey in [place] and wound care Labs: creatinine lab draw prior to CT scan Medication Changes: The following testing has been ordered for you: CT angiogram of abdomen/pelvis with lower extremityrunoff Scheduling should reach out to you to schedule testing But if you do not hear from them please call the number below To schedule testing please reach out to [phone] and follow the prompts to scheduling If you need to schedule, cancel or reschedule an appointment please call [place] office [phone] If you have any questions please call JACKIE Cano [phone] documented in this [id number] History of Present illness Narrative* Adilene Bryan RPh,PharmD - 11/14/2023 9:59 AM EDT Images from the original note were not included. Anticoagulation Progress Note Date of Visit: November 14, 2023 Patient Name: Scott Obregon : 1960 Age: 63 y.o. Scott Winters Mago Head with [facility] called with INR results. INR obtained from an outside source: Home Health. Anticoagulation Summary As of 11/14/2023 INR goal: 2.0-3.0 TTR: 87.0% (9.9 mo) INR used for dosin.5 (11/14/2023) Warfarin maintenance plan: 7.5 mg (5 mg x 1.5) every Mon, Elena, Sat; 5 mg (5 mg x 1) all other days Weekly warfarin total: 42.5 mg Plan last modified: Adilene Bryan RPh,PharmD (02/15/2023) Next INR check: 11/21/2023 Priority: High [...] clinic with any changes. Adilene Bryan RPh,PharmD [facility] Dept: [phone] documented in this [id number] Patient's home Progress note* Actions CP assess, [...] level / walkout documented in this encounter [id number] History of Present illness Narrative* Michelle Littlejohn RPh,PharmD - 11/08/2023 4:07 PM EDT Anticoagulation Progress Note Date of Visit: November 08, 2023 Patient Name: Scott Obregno : 1960 Age: 63 y.o. Scott Obregon Had her INR checked and result called in by her home health nurse, Camila, from [facility]. Anticoagulation Summary As of 11/08/2023 INR goal: 2.0-3.0 TTR: 87.6% (9.7 mo) INR used for dosin.3 (11/08/2023) Warfarin maintenance plan: 7.5 mg (5 mg x 1.5) every Tu, Elena, Sat; 5 mg (5 mg x 1) all other days Weekly warfarin total: 42.5 mg Plan last modified: Adilene Bryan, [facility],PharmD (02/15/2023) Next INR check: 11/16/2023 Priority: Maintenance [...] 42.5 mg/week since discharging from [facility]. INR is therapeutic today at 2.3. Since INR is in range, will continue same dose. Will recheck next week again to ensure stability. PLAN: Will continue weekly warfarin dose of 42.5 mg/week. Will check next INR in 1 week unless there are any changes before then. Encouraged patient to contact clinic with any changes. iMchelle Littlejohn RPh,PharmD [facility] Dept: [phone] documented in this [id number] Patient's home Progress note* Actions [facility] Clinical [facility] farrukh Patient's goals for HomeCare: to gain [...] dry them thoroughly. documented in this encounter [id number] [facility]'s home Progress note* [facility] farrukh Patient's goals for HomeCare: [...] dry them thoroughly. documented in this encounter [id number] History of Present illness Narrative* Rafaela Garcias RN - 11/03/2023 11:02 AM EDT Reviewed with Dr. Guerra post op follow up appt with Cate Contreras REGISTERED NURSE CARDIOVASCULAR ICU s/p EVAR and Right Renal Stenting 10/10/[address] Guerra and Dr. Kruger. Per review, patient is scheduled for follow up with on 11/16 with renal ultrasound. Per Dr. Guerra, patient to continue follow up with Dr. Kruger and does not need to continue followup with us. Patient aware of follow up with Dr. Kruger documented in this [id number] NoteOffice Visit Patient Name: Scott Obregon MR #: [id number] Assessment/Plan: I saw Scott in the office today for the one week Vascular surgery follow-up. she is a 63 y.o. female with history of Hyperlipidemia, hypertension, factor 5 Leiden on coumadin, hypothyroidism, appendicitis s/p laparoscopic appendectomy (09/14/2018) who presented to [facility] on 10/09/2023 with a ruptured infrarenal abdominal aortic aneurysm, acute blood loss anemia, hemorrhagic shock and underwent emergent EVAR and snorkel stent to left renal artery, right brachial artery cutdown on 10/10/[address]erra and Dr. Kruger. [facility] 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 she is a 63 y.o. female with history of Hyperlipidemia, hypertension, factor 5 Leiden on coumadin, hypothyroidism, appendicitis s/p laparoscopic appendectomy (09/14/2018) who presented to [facility] on 10/09/2023 with a ruptured infrarenal abdominal aortic aneurysm, acute blood loss anemia, hemorrhagic shock and underwent emergent EVAR and snorkel stent to left renal artery, right brachial artery cutdown on 10/10/[address] Guerra and Dr. Kruger. She is currently at [facility] for a prolonged recovery. 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 May DC to home Home nursing PT/OT [...] kg/m ROS Physical Exam documented in this [id number] [facility] 10-18-2023 [facility]05-19-2024 [facility] 10-14[facility]-15[facility]24 History of Present illness Narrative* Yakelin Iqbal MA - 10/11/2023 9:57 AM EDT Patient is s/p emergent EVAR with renal stenting with Dr. Guerra/Dr Kruger. Per Cheyenne Carey DNP,patient needs a 1 month follow up appointment with Dr Kruger only along with a renal duplex. She is scheduled for renal duplex on 11-16-2023 at 9:00 am in [place] then she will see Dr Kruger on Monday11-17-2023 at 8:00am in the [facility] office location. Patient aware/AVS updated documented in this [id number] [facility]05-15-[facility]24 NoteSubjective Patient ID: Scott Obregon is [...] increase boost to BID Felicity Olson CNP [facility] [phone] AUTHENTICATED BY FELICITY OLSON, ON 09/26/2023 09:39:34[facility] 09-26-2023 History of Present illness Narrative* Felicity Olson CNP - 09/26/2023 9:16 AM EDT Images from [...] her to increase boost to BID Felicity Olsno CNP [facility] [phone] documented in this [id number] History of Present illness Narrative* Alcides Leary [...] mg (5 mg x 1.5) every Mon, Elena, Sat; 5 mg (5 mg x 1) all other days Weekly warfarin total: 42.5 mg Plan last modified: Adilene Bryan [facility],PharmD (02/15/2023) Next INR check: 10/12/2023 Priority: [...] patient to contact clinic with any changes. [facility] Dept: [phone] Associated attestation - Michelle Littlejohn RPh,PharmD - 09/07/2023 8:20 AM EDT I, Michelle Littlejohn RPh,PharmD, attest that I was present during the patient encounter. I agree withthe documentation, assessment, and plan outlined in the below documentation. documented in this [id number] History of Present illness Narrative* Theresa Boykin [...] symptoms - Advised patient to follow-up with PCP/senior specialist re: PAL results - Nursing notes reviewed KATHY Higuera, [facility]: Chief Complaint: Back Pain (Ref [...] studies if clinically indicated. documented in this [id number] History of Present illness Narrative* Michelle Littlejohn RPh,PharmD - 08/10/2023 8:30 AM EDT Anticoagulation Progress [...] Adilene Bryan RPh,PharmD (02/15/2023) Next INR check: 09/07/2023 Priority: Maintenance [...] clinic with any changes. Michelle Littlejohn RPh,PharmD [facility] Dept: [phone] documented in this [id number] History of Present illness Narrative* Yfn Puckett [...] well and still working. documented in this [id number] History of Present illness Narrative* Justine Hodges, [...] 42.5 mg Plan last modified: Adilene Bryan, [facility],PharmD (02/15/2023) Next INR check: 08/10/2023 Priority: [...] clinic with any changes. 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 documented in this [id number] History of Present illness Narrative* Arlette Fernandes [...] 42.5 mg Plan last modified: Adilene Bryan [facility],PharmD (02/15/2023) Next INR check: 07/13/2023 Priority: [...] 62 y.o. female was seen at the [facility]. She is doing well and is able to correctly confirm the dose of warfarin, and denies any changes or concerns. Warfarin taken in the previous 7 days: 42.5 mg INR is therapeutic today at 2.1. Patient missed 3 doses around due to running out of medication and not being able to contact doctor to get a refill for a few days. We informed the patient that the clinic is able to provide refills for her in the future. She also has started to drink boost around . She is drinking one boost every other [...] patient to contact clinic with any changes. [facility] ANTICOAGULATION CLINIC Dept: [phone] Associated attestation - Adilene Bryan RPh,PharmD - 06/07/2023 8:30 AM EST IAdilene, attest that I was present during the patient encounter. I agree with the documentation, assessment, and plan outlined in the below documentation. documented in this [id number] History of Present illness Narrative* Adilene Bryan [...] 42.5 mg Plan last modified: Adilene Bryan, [facility],PharmD (02/15/2023) Next INR check: 06/07/2023 Priority: Maintenance [...] INR is therapeutic at 2.1 today. Today Soctt Obregon a 62 y.o. female was seen at the [facility] Anticoagulation Clinic. She is able to correctly [...] clinic with any changes. Adilene Bryan RPh,PharmD [facility] Dept: [phone] documented in this [id number] Instructions* Patient Instructions* Adilene Bryan RPh,PharmKirk - 05/03/2023 8:10 AM EST If you experience any of the following symptoms within 24 hours of your next appointment, or you have been in close contact with anyone confirmed or suspected to have coronavirus/COVID-19 in the past10 days please call us to reschedule at Dept: [phone]. Fever Cough Shortness of breath Difficulty breathing Chills Repeated shaking with chills Muscle pain Headache Sore throat Any loss of taste or smell Nausea, vomiting or diarrhea If you are screened positive for any of the above upon entering the building, please call us at Dept: [phone] for further instructions before you proceed to the clinic. Thank you for adhering to our precautions to keep our patients and providers safe! documented in this [id number] History of Present illness Narrative* Ying Quispe, [...] effects of the medications. documented in this [id number] History of Present illness Narrative* Michelle Littlejohn RPh,PharmD - 04/05/2023 8:19 AM EST I, Michelle Littlejohn, attest that I agree with the documentation, assessment, and plan outlined in [facility] documentation. * Justine Hodges RPh,PharmD - 04/05/2023 8:14 AM EST Anticoagulation Progress [...] Adilene Bryan RPh,PharmD (02/15/2023) Next INR check: 05/03/2023 Priority: Maintenance [...] clinic with any changes. Justine Hodges RPh,PharmD [facility] Dept: [phone] documented in this [id number] History of Present illness Narrative* Michelle Littlejohn [...] clinic with any changes. Michelle Littlejohn RPh,PharmD [facility] Dept: [phone] documented in this [id number] History of Present illness Narrative* Adilene Bryan RPh, PharmD - 02/15/2023 8:02 AM EDT Anticoagulation Progress [...] 62 y.o. female was seen at the [facility]. She is able to correctly [...] contact clinic with any changes. Adilene Bryan RPh,RohanD [facility] Dept: [phone] documented in this [id number] Instructions* Patient Instructions* Adilene Bryan RPh, PharmD - 02/15/2023 7:59 AM EDT If you experience any of the following symptoms within 24 hours of your next appointment, or you have been in close contact with anyone confirmed or suspected to have coronavirus/COVID-19 in the past10 days please call us to reschedule at Dept: [phone]. Fever Cough Shortness of breath Difficulty breathing Chills Repeated shaking with chills Muscle pain Headache Sore throat Any loss of taste or smell Nausea, vomiting or diarrhea If you are screened positive for any of the above upon entering the building, please call us at Dept: [phone] for further instructions before you proceed to the clinic. Thank you for adhering to our precautions to keep our patients and providers safe! documented in this [id number] History of Present illness Narrative* Michelle Littlejohn [...] (5 mg x 1.5) every Mon, Mon, Elena; 5 mg (5 mg x 1) all other days Weekly warfarin total: 42.5 mg Plan last modified: Lavon Mcmullen RPh,PharmD (01/16/2023) Next INR check: 02/15/2023 Priority: High [...] clinic with any changes. Michelle Littlejohn RPh,PharmD [facility] Dept: [phone] documented in this [id number] History of Present illness Narrative* Ying Quispe, - 01/25/2023 4:07 PM EDT Images from [...] effects of the medications. documented in this [id number] History of Present illness Narrative* Barbara Li [...] 42.5 mg Plan last modified: Lavon Mcmullen [facility],PharmD (01/16/2023) Next INR check: 01/23/2023 Priority: [...] to contact clinic with any changes. Barbara [facility] ANTICO[facility]ULATION CLINIC Dept: [phone] Associated attestation - Lavon Mcmullen RPh, PharmD - 01/16/2023 8:34 AM EDT I, Lavon Mcmullen, attest that I was present during the patient encounter. I agree with the documentation, assessment, and plan outlined in the below documentation. documented in this [id number] History of Present illness Narrative* Adilene Bryan RPh, PharmD - 01/09/2023 8:13 AM EDT I attest that I was present during the patient encounter and I agree with the assessment and plan outlined below. * JenBarbara - 01/09/2023 8:05 AM EDT Images from [...] total: 45 mg Plan last modified: Adilene Bryan, [facility],PharmD (01/09/2023) Next INR check: 01/16/2023 Priority: High [...] patient to contact clinic with any changes. [facility] ANTICOAGULATION CLINIC Dept: [phone] documented in this [id number] Instructions* Patient Instructions* Adilene Bryan RPh,PharmD - 01/09/2023 8:01 AM EDT If you experience any of the following symptoms within 24 hours of your next appointment, or you have been in close contact with anyone confirmed or suspected to have coronavirus/COVID-19 in the past10 days please call us to reschedule at Dept: [phone]. Fever Cough Shortness of breath Difficulty breathing Chills Repeated shaking with chills Muscle pain Headache Sore throat Any loss of taste or smell Nausea, vomiting or diarrhea If you are screened positive for any of the above upon entering the building, please call us at Dept: [phone] for further instructions before you proceed to the clinic. Thank you for adhering to our precautions to keep our patients and providers safe! documented in this [id number] History of Present illness Narrative* Michelle Littlejohn [...] 35 mg Plan last modified: Michelle Littlejohn, [facility],PharmD (12/19/2022) Next INR check: 01/09/2023 Priority: High [...] clinic with any changes. Michelle Littlejohn RPh,PharmD [facility] Dept: [phone] documented in this [id number] History of Present illness Narrative* Adilene Bryan RPh,PharmKirk - 12/26/2022 8:13 AM EDT Images from [...] Michelle Littlejohn RPh,PharmD (12/19/2022) Next INR check: 01/02/2023 Priority: High [...] 62 y.o. female was seen at the [facility]. She confirmed the dose of [...] clinic with any changes. Adilene Bryan RPh,PharmD [facility] Dept: [phone] documented in this [id number] Instructions* Patient Instructions* Adilene Bryan RPh, PharmD - 12/26/2022 8:11 AM EDT If you experience any of the following symptoms within 24 hours of your next appointment, or you have been in close contact with anyone confirmed or suspected to have coronavirus/COVID-19 in the past10 days please call us to reschedule at Dept: [phone]. Fever Cough Shortness of breath Difficulty breathing Chills Repeated shaking with chills Muscle pain Headache Sore throat Any loss of taste or smell Nausea, vomiting or diarrhea If you are screened positive for any of the above upon entering the building, please call us at Dept: [phone] for further instructions before you proceed to the clinic. Thank you for adhering to our precautions to keep our patients and providers safe! documented in this [id number] History of Present illness Narrative* Michelle Littlejohn RPh,PharmD - 12/19/2022 8:13 AM EDT Images from [...] ASSESSMENT: Scott Obregon is new to our [facility] anticoagulation clinic. Indication for warfarin therapyis [...] before then. [facility] but patient is unable due to work schedule. Encouraged patient to contact clinic with any changes. Michelle Littlejohn RPh,PharmD [facility] Dept: [phone] documented in this [id number] History of Present illness Narrative* Lita Gu [...] Products Rash and GI Intolerance Seafood, Vomiting [facility] has a current medication list which includes [...] MD Template Design PNSHETH documented in this [id number] History of Present illness Narrative* Ying Quispe, DO - 11/28/2022 4:44 PM EDT Images [...] nose. The 10-year ASCVD risk score (Mila SAENZ, et al., 2019) is: 11.5% Values used [...] at all Somewhat difficult documented in this [id number] History of Present illness Narrative* Lita Gu [...] to participate in the care of Scott Winters Obregon. LITA GU MD [employer] PNSHETH documented in this [id number] History of Present illness Narrative* Lita Gu [...] Iodide Containing Products GI Intolerance Seafood, Vomiting [facility] has a current medication list which includes [...] MD Template Design PNSHETH documented in this [id number] History of Present illness Narrative* Amalia Fernandez [...] routed to ordering provider. documented in this [id number] Note* Addendum Note - Ying Quispe DO - 08/15/2022 5:28 PM EDTAddended by: YING QUISPE on: 08/15/2022 05:28 PM Modules accepted: Orders [id number] Miscellaneous Notes* Addendum Note - Ying Quispe DO - 08/15/2022 5:28 PM EDTAddended by: YING QUISPE on: 08/15/2022 05:28 PM Modules accepted: Orders documented in this [id number] History of Present illness Narrative* Ying Quispe, DO - 08/15/2022 5:07 PM EDT Images [...] effects of the medications. documented in this [id number] History of Present illness Narrative* Lita Gu [...] left shoulder. Energy levels fair. Works at [employer]. No pregnancies. No miscarriages in mother, h/o [...] MD Template Design PNSHETH documented in this [id number] Instructions* Patient Instructions* Ying Quispe DO - 06/13/2022 4:31 PM EST Do eliquis 5mg twice daily for 3 months when done with 10mg twice daily for 7 days documented in this [id number] History of Present illness Narrative* Ying Quispe DO - 06/13/2022 4:10 PM EST Images from the original note were not included. HPI Here for follow up from Monday, dx with left axillary vein thrombosis supposed to set up with dr. Roque to check for hereditary causes of dvt. [...] a 61 y.o. female patient of Ying Zahra DO Brittaney with history of Hypothyroidism, hypertension, hyperlipidemia, who [...] LAPAROSCOPIC; Surgeon: Татьяна Jenkins MD; Location: [place]; Service: General Surgery Social History Socioeconomic History [...] left upper extremity (HCC) compression sleeve at [facility]. - Ambulatory referral to Hematology / Oncology; [...] - - Somewhat difficult documented in this [id number] Hospital course Narrative* Kat De Dios MD - 06/11/2022 9:31 AM EST Images from the original note were not included. [facility] DISCHARGE SUMMARY -- [facility] Scott Obregon Admitted: 06/10/2022 Discharge Date: 06/11/22 [...] mouth daily . Physician(s) Follow Up: Ying Quispe, [address] [place] [id number] Follow up Yign Quispe DO [address] [place] [id number] Lita Gu MD [address] [facility] [address] Follow up Condition at Discharge: Stable Disposition: Home On day of discharge, I performed a final bedside evaluation including a physical exam. I reviewed discharge recommendations with the patient in person. Patient instructions, including activity, were given to the patient/family at discharge. Time spent on discharge: > 30 minutes Completed by: Kat De Dios on 06/11/22, 9:31 AM documented in this [id number] Hospital Discharge instructions * Discharge Instr - [...] include work-up for DVT documented in this [id number] Note* Plan of Care - Stacy Cano [...] discharge plan and instructions Outcome: Partially Met [id number] Miscellaneous Notes* Plan of Care - Stacy [...] the patient. I discussed the patient with ENVIRONMENTAL PROTECTION OFFICER/PA. I agree with the ENVIRONMENTAL PROTECTION OFFICER/PA treatment plan. I agree with the ENVIRONMENTAL PROTECTION OFFICER/PA plan of care. I agree with the ENVIRONMENTAL PROTECTION OFFICER/PA dispo as documented. Patient is a 61-year-old [...] All other components within normal limits Narrative: [facility] has implemented the eGFR [...] Procedure Abnormality Status --------- ------ CBC Auto Differential[[id number]] Abnormal Final result Please view results for these tests on the individual orders. Imaging Results XR Chest 1 View (Results Pending) Ultrasound Duplex Venous Arm LEFT (Results Pending) CT Head Or Brain Without Contrast (Results Pending) Procedures . documented in this [id number] Note* Plan of Care - Svetlana Monaco [...] discharge plan and instructions Outcome: Partially Met [id number] History of Present illness Narrative* Mendez Tang - 06/10/2022 1:26 PM EST Vascular Surgery Inpatient Consult 06/10/2022 Mendez Eng [facility] Patient: Scott Obregon Date of : 1960 [...] cephalic and basilic veins. documented in this [id number] History and physical note* Adia Rodriguez MD - 06/10/2022 1:25 PM EST [facility] HISTORY AND PHYSICAL -- [facility] Patient Name: Scott Obregon : 1960 MR #: [id number] Admit Date: 06/10/2022 Physicians: Ying Quispe DO [...] 06/10/22 1:33 PM Medications 06/10/22 1:33 PM [facility] Work Phone: 1(512) 685-258501-13-2023 History and physical note* Adia Rodriguez MD - 06/10/2022 1:25 PM EST [facility] HISTORY AND PHYSICAL -- [facility] Patient Name: Scott Obregon : 1960 MR #: [id number] Admit Date: 06/10/2022 Physicians: Ying Quispe DO [...] Medications 06/10/22 1:33 PM documented in this [id number] Emergency department Note* Mendez Ariza RN - 06/10/2022 12:30 PM EST Report called to floor nurse. [id number] Emergency department Note* Mendez Ariza RN - 06/10/2022 12:30 PM EST Report called to floor nurse. * Mendez Ariza RN - 06/10/2022 11:21 AM EST [facility] thisnurse told to hold IV and heparin at this time. Pt may be going home and will be started on oral meds. No other needs. SRx2. Call light in reach. * Bambi Whyte PA-C - 06/10/2022 9:08 AM EST [facility] EMERGENCY DEPARTMENT XIAO NOTE: NAME: Scott Obregon CSN: [id number] 61 y.o. PCP: Ying Quispe DO History: [...] All other components within normal limits Narrative: [facility] has implemented the eGFR [...] Procedure Abnormality Status --------- ------ CBC Auto Differential[[id number]] Abnormal Final result Please view results for [...] admitted the patient we will consult vascular chronic specialist. This provider spoke with Dr. Pierce vascular surgeon, he will consult with hospitalist as needed. Clinical Impression: 1. Acute deep vein thrombosis (DVT) of axillary vein of left upper extremity (HCC) 2. Chest pain, unspecified type Disposition: ED Disposition ED Disposition Hospitalize Condition -- Comment Phone call required?: No Bambi Whyte PA-C ED Advanced Practice Provider [facility] EMERGENCY DEPART[facility] (Please note that portions [...] Comments: NEXT PT 1 documented in this [id number] Note* Plan of Care - Adia Rodriguez [...] heparin drip. Full consult note will follow. [id number] Emergency department Note* Mendez Ariza RN - 06/10/2022 11:21 AM EST [facility]. thisnurse told to hold IV and heparin at this time. Pt may be going home and will be started on oral meds. No other needs. SRx2. Call light in reach. [id number] Note* ED Attestation Note - Shira Lopez MD - 06/10/2022 10:15 AM EST I personally interviewed the patient. I personally examined the patient. I discussed the patient with ENVIRONMENTAL PROTECTION OFFICER/PA. I agree with the ENVIRONMENTAL PROTECTION OFFICER/PA treatment plan. I agree with the ENVIRONMENTAL PROTECTION OFFICER/PA plan of care. I agree with the ENVIRONMENTAL PROTECTION OFFICER/PA dispo as documented. Patient is a 61-year-old [...] All other components within normal limits Narrative: [facility] has implemented the eGFR [...] Procedure Abnormality Status --------- ------ CBC Auto Differential[[id number]] Abnormal Final result Please view results for these tests on the individual orders. Imaging Results XR Chest 1 View (Results Pending) Ultrasound Duplex Venous Arm LEFT (Results Pending) CT Head Or Brain Without Contrast (Results Pending) Procedures . [id number] Physician Emergency department Note* Bambi Whyte PA-C - 06/10/2022 9:08 AM EST [facility] EMERGENCY DEPARTMENT XIAO NOTE: NAME: Scott Obregon CSN: [id number] 61 y.o. PCP: Ynig Quispe DO History: Chief Complaint: Arm Swelling [...] All other components within normal limits Narrative: [facility] has implemented the eGFR [...] Procedure Abnormality Status --------- ------ CBC Auto Differential[[id number]] Abnormal Final result Please view results for [...] admitted the patient we will consult vascular chronic specialist. This provider spoke with Dr. Pierce vascular surgeon, he will consult with hospitalist as needed. Clinical Impression: 1. Acute deep vein thrombosis (DVT) of axillary vein of left upper extremity (HCC) 2. Chest pain, unspecified type Disposition: ED Disposition ED Disposition Hospitalize Condition -- Comment Phone call required?: No Bambi Whyte PA-C ED Advanced Practice Provider [facility] EMERGENCY DEPARTMENT (Please note that portions of this note have been completed with a voice recognition software. Efforts were made to correct any errors, but occasionally words are mis-transcribed.) Bambi Whyte PA-C 06/10/22 1145 Bambi Whyte PA-C 06/10/22 1201 [id number] Emergency department Triage note* Mendez Ariza, JACKIE - 06/10/2022 8:52 AM EST Pt arrives [...] fingers. Pt in no distress. GCS 15. [id number] Emergency department Note* Leanne L Claudia - 06/10/2022 8:48 AM EST Bed: 15 Expected date: Expected time: Means of arrival: Comments: NEXT PT 1 [id number] History of Present illness Narrative* Ying Quispe DO - 06/06/2022 11:48 AM EST Images from the original note were not included. HPI 2 weeks of hand/feet white/bluish worse with weather changes. 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 on thyroid medicine. Denies fever, arthrralgias dysphagia, sclerodacty is a smoker [facility]. Will check tsh and sed [...] start today if not better in a [facility] return if ok will see in [...] - - Somewhat difficult documented in this [id number] History of Present illness Narrative* Ying Quispe [...] effects of the medications. documented in this [id number] History of Present illness Narrative* Felicity Olson, REGISTERED NURSE CARDIOVASCULAR ICU - 01/05/2022 4:27 PM EDT Images from [...] days . Electronically signed by Felicity Olson P Depression Screening 01/01/2018 01/14/2019 09/29/2020 05/12/2021 01/05/2022 [...] at all - - documented in this [id number] History of Present illness Narrative* Yfn Puckett Jr., DPM - 11/25/2021 4:43 PM EDT Tingling and burning bilaterally. Follow-up right heel [facility]. Patient is a pleasant 61-year-old female following [...] medical complexity decision making. documented in this [id number] History of Present illness Narrative* Ying Quispe, DO - 11/18/2021 8:23 AM EDT Images from the original note were not included. HPI Here for wellness labs, tingling feet dr. Puckett wants an hgaic, was prediabetic with cmp 10/21/2021. [...] LAPAROSCOPIC; Surgeon: Татьяна Jenkins MD; Location: [facility] [place]; Service: General Surgery Social History Socioeconomic History [...] sees dr. Puckett next wk going to [facility] tomorrow. Encouraged smoking.... - Lipid Panel; Future [...] Lipid- Due not fasting documented in this [id number] Telephone encounter Note* Telephone Encounter - Arlette [...] this refill. Please send to Preferred pharmacies: [facility] - [place], [place] - [address] [facility] [address] [place] [address] Pt Call Back Number Patient call back message sent to the [facility] clinical english. Mary Shaver [id number] Miscellaneous Notes* Telephone Encounter - Arlette Benavidez [...] this refill. Please send to Preferred pharmacies: [facility] - [place], [place] - [address] [address] Pt Call Back Number Patient call back message sent to the [facility] clinical english. Mary Shaver documented in this [id number] History of Present illness Narrative* Ying Quispe DO - 06/21/2021 3:12 PM EST Images [...] effects of the medications. documented in this [id number] History of Present illness Narrative* Yfn Lavern Taylor, DPM - 06/17/2021 4:47 PM EST HPI Chief [...] overlying skin and are not none transilluminate [place]. No fascial pain with compression of palpation. [...] medical complexity decision making. documented in this [id number] History of Present illness Narrative* Ying Quispe, [...] difficult at all - documented in this [id number] History of Present illness Narrative* Bambi Huynh MD - 09/29/2020 1:58 PM EDT [facility] [address] [place], [place] [address] Scott Obregon 1960 [id number] HPI: 60-year-old female with history of hypothyroidism, [...] Gets together: Three times a week Attends mandaeism service: Not on file Active member of [...] Not difficult at all documented in this [id number] Telephone encounter Note* Telephone Encounter - Bambi Huynh MD - 07/29/2020 6:59 AM EST Patient overdue for appointment [id number] Miscellaneous Notes* Telephone Encounter - Bambi Huynh MD - 07/29/2020 6:59 AM EST Patient overdue for appointment documented in this encounterOhioHealthDischarge summary Author Constantin Jain [facility] Note Date/Time September 15, 2024 7:5 1am [facility] Medical Records Department [address] [place] [address] Emergency Department Summary 09/15/24 MR#: [id number] Acct: [id number] Name: SCOTT OBREGON Rep #:[id number] 15 : 1960 64 From: Constantin Jain MD PCP: Millie Massey MD Status:REG ER Location: ED HPI History of Present Illness Chief Complaint: Shortness of Breath Narrative Narrative: Patient is sent from group home facility where she is DNR comfort care only, she is a dialysis patient and has a lot of medical problems including clotting disorders, peripheral arterial disease, ESRD, and a history of pulmonary edema that staff at the skilled nursing states has improved with Lasix inthe past, she has been dyspneic for the last 12 to 24 hours, and the patient complains of chest pressure as well. She has been coughing no sputum production, she is orthopneic and denies any fevers or chills. No GI symptoms or recent vomiting. She is on chronic oxygen therapy at the skilled nursing, unknown how much at baseline but at the skilled nursing they have had her nasal cannula up to 5 L this past day. [facility] Medical History Raynaud disease End stage renal [...] bisacodyl 10 mg rectal suppository 10 mg OR DAILY PRN constipation 07/31/24 Unknown History cholecalciferol [...] tablet acetaminophen 650 mg rectal 650 mg OR Q4H PRN fever or pain 08/14/24 Unknown History suppository dextrose 40 % oral gel (Glucose 10 g PO Q15M PRN hypog lycemia 08/14/24 Unknown History Gel) mirtazapine 15 mg tablet 15 mg PO QHS 08/14/24 Unknow n History sodium phosphates 19 gram-7 118 ml OR DAILY PRN consti pation 08/14/24 Unknown History [...] treatment, she had 1 earlier at the skilled nursing and she said it helped a little. [...] reasonable to send her back to the skilled nursing, andrylee will be dialyzed on first shift Monday. I will have staff contact nurses at the skilled nursing and discuss her oxygen status, the possibility [...] 84.1 H Lymph % (Auto) 6.9 L [place] % (Auto) 6.1 Eos % (Auto) 1.5 [...] of significant diffuse pulmonary vascular congestion with [id number] bilateral pleural effusions. Underlying pneumonia to be ruled out. Follow-up until resolution is recommended. Reading Location: [facility] Rhythm Strip Rhythm Strip: Sinus Tach Rate: 110 Ectopy: None EKG Initial EKG: Attestation: I personally reviewed and interpreted this EKG as follows: Interpretation: No Acute Injury Pattern, Sinus Tachycardia and Non-Specific ST Changes Management Discussion w/another healthcare provider: Superintendent Drilling (nephrology Dr. Barrios) Discharge Plan Triage Chief [...] tx acetaminophen 650 mg suppository 650 mg OR Q4H PRN (Reason: fever or pain) Enema 19-7 gram/118 mL enema 118 ml OR DAILY PRN (Reason: constipation) Rx Instructions: NEEDED [...] cramps for 1-2 hour Ordered By: Nikolas Maagña MD Last Taken: Unknown potassium 20 mg [...] DISTRESS) bisacodyl 10 mg suppository 10 mg OR DAILY PRN (Reason: constipation) glucagon HCl [Glucagon [...] have the capability of dialyzing patients at [facility] until Monday after 7 AM 09/16/2024. Print Language: American Disposition Disposition: Home, Self Care What to do if you have Problems For any increased pain, shortness of breath, bleeding, nausea or vomiting, chestpain, or any unexpected problems, contact your Primary Care Provider. Call [facility] ([phone]) or report to the closest Emergency Room. Call 911 if necessary. 09/15/24 0751 <Electronically signed by Constantin Jain MD> Cosigner Signature (if applicable): CC: Millie Massey MD ~ Signed [facility] Work Phone: Evaluation note* Diagnosis Hypothyroidism, unspecified type- Primary [facility] Diagnosis Hypothyroidism, unspecified type- Primary Hip [...] type [E78.5]- Primary [facility]* [...] unspecified type- Primary [facility]* [...] Primary Orthostatic hypotension TUTU (acute kidney injury) (HCC) Debility Unspecified debility Ruptured abdominal aortic aneurysm [...] extremity (HCC)- Primary [facility] Diagnosis Acute deep vein thrombosis (DVT) of axillary vein of left upper extremity (HCC)- Primary [facility] Diagnosis PVD (peripheral vascular disease) (HCC)- Primary Unspecified peripheral vascular disease 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)- Primary PVD (peripheral vascular disease) (HCC) Unspecified peripheral vascular disease PVD (peripheral vascular disease) ([facility])- Primary Unspecified peripheral vascular disease Juxtarenal ruptured abdominal aortic aneurysm (AAA) ([facility]) Renal insufficiency Unspecified disorder of kidney and [...] part (HCC)- Primary [facility] Additional Instructions Received Lasix 80 mg in the ED, urinated several times, feeling much better, on a nasal cannula, resolution of chest discomfort. Pulmonary edema on x-ray, needs dialysis, but Lasix should temporize until Monday morning. Another dose prescribed in case she needs it later. Be aware that we do not have the capability of dialyzing patients at [facility] until Monday after 7 AM 09/16/2024.[facility] Work Phone: Instructions* Attachments The following attachments cannot be sent through Care Everywhere. * Smoking Cessation: Health Benefits: General Info (American) documented in this encounterArioSt. Rita'S HospitalInstructions* Attachments The following attachments cannot be sent through Care Everywhere. * DVT (Deep Vein Thrombosis) (American) * Lung Cancer Screening: General Info (American) documented in this encounterArioSt. Rita'S HospitalInstructions* Attachments The following attachments cannot be sent through Care Everywhere. * PET Scan (American) * MRI: Head (American) documented in this encounterArioHealthInstructions* Attachments The following attachments cannot be sent through Care Everywhere. * Factor V Leiden (American) * Warfarin Safety Tips (American) * Coumadin (Warfarin) - Consistent Vitamin K Diet: Care Instructions (American) * Warfarin: 5 Things You Can Do to Take It Safely: Video (American) * Direct Oral Anticoagulants: Non-Vitamin K Antagonist (American) documented in this encounterOhioHealthPatient's home Plan of [...] Management Goal:Pain Completed documented [facility] this encounter [facility]* Visit [...] Management Goal:Pain Completed documented [facility] this encounter [facility]* Visit Details Visit Type -RAIL LOADER Routine Discipline -Penitentiary Problems Problem Start Date [...] with result of 2.3. Results called into [facility] and spoke with Pharm. Cisneros. No new orders for coumadin, patient is to continue same dose. Next scheduled INR Monday11/14/2023 documented [facility] this encounter [facility]* Visit [...] 75% of instruction. documented in this encounter [facility]* Visit [...] Management Goal:Pain Completed documented [facility] this encounter [facility]* Visit Details Visit Type -RAIL LOADER Routine Discipline -Penitentiary Problems Problem Start Date [...] and improved circulation. documented [facility] [...] Management Goal:Pain Completed documented [facility] this encounter [facility]* Visit Details Visit Type -SET STAFF FITTER Routine Visi t Discipline -Physical Therapy Problems [...] intervention at next visit: Next visit with SET STAFF FITTER to continue improving strength and balance in order to maximize safety with ambulation and functional transfers. Home Exercise Program Problem:Home Exercise Program Goal:Home Exercise Program Completed Patient reports: good understanding of HEP Clinician taught: patient Clinician instructed on: SET STAFF FITTER provides skilled instruct to perform standing therex at FWW for support including marching, hip flexion, hs curls, and, DF/PF 10x each in order to increase strength in weight bearing, progress towards LTGs, and demo increased ease with ambulation. Pt required several seated rest break due to quickly becoming fatigued and dizzy. SET STAFF FITTER monitored BP with readings all reamaining WNL at 124/70 and 106/67. Pt reports thats too low for me. SET STAFF FITTER provides skilled instruct to perform seated therex [...] falls Clinician taught: patient Clinician instructed on: SET STAFF FITTER provides skilled instruct to perform various transfers as outlined in transfers log requiring cues for appropriate technique and sequencing to maximize safety and to facilitate improved overall independence with ADLs. SET STAFF FITTER provides skilled instruct to ambulate with FWW with SET STAFF FITTER CGA during - provides cues/education to improve overall gait sequencing/pattern to maximize safety and decrease fall risk in order to progress independence towards STGs/LTGs. SET STAFF FITTER provides skilled instruct to ascend/descend 7 stairs this date with B UE assist on HR and noUE assist on AD for support with step to pattern and CGA. Patient/caregiver is able to teach back 100% of instruction. documented [facility] this encounter [facility]* Visit [...] 80% of instruction. documented in this encounter [facility]* Visit Details Visit Type -SET STAFF FITTER Routine Visi t Discipline -Physical Therapy Problems [...] intervention at next visit: Next visit with SET STAFF FITTER to continue improving strength and balance in order to maximize safety with ambulation and functional transfers. Home Exercise Program Problem:Home Exercise Program Goal:Home Exercise Program Completed Patient reports: good understanding of HEP Clinician taught: patient Clinician instructed on: SET STAFF FITTER provides skilled instruct to perform standing therex at FWW for support including marching, hip flexion, hs curls, and, DF/PF 10x each in order to increase strength in weight bearing, progress towards LTGs, and demo increased ease with ambulation. Pt required several seated rest break due to quickly becoming fatigued and dizzy. SET STAFF FITTER monitored BP with readings all reamaining WNL at 124/70 and 106/67. Pt reports thats too low for me. SET STAFF FITTER provides skilled instruct to perform seated therex [...] falls Clinician taught: patient Clinician instructed on: SET STAFF FITTER provides skilled instruct to perform various transfers as outlined in transfers log requiring cues for appropriate technique and sequencing to maximize safety and to facilitate improved overall independence with ADLs. SET STAFF FITTER provides skilled instruct to ambulate with FWW with SET STAFF FITTER CGA during - provides cues/education to improve overall gait sequencing/pattern to maximize safety and decrease fall risk in order to progress independence towards STGs/LTGs. SET STAFF FITTER provides skilled instruct to ascend/descend 7 stairs this date with B UE assist on HR and noUE assist on AD for support with step to pattern and CGA. Patient/caregiver is able to teach back 100% of instruction. documented [facility] this encounter [facility]* Visit Details Visit Type -RAIL LOADER Routine Discipline -Penitentiary Problems Problem Start Date [...] of care note* Visit Details Visit Type -SET STAFF FITTER Routine Visi t Discipline -Physical Therapy Problems [...] intervention at next visit: Next visit with SET STAFF FITTER to continue improving strength and balance in order to maximize safety with ambulation and functional transfers. Home Exercise Program Problem:Home Exercise Program Goal:Home Exercise Program Completed Patient reports: fair compliance Clinician taught: patient Clinician instructed on: SET STAFF FITTER provides skilled instruct to perform seated therex [...] falls Clinician taught: patient Clinician instructed on: SET STAFF FITTER provides skilled instruct to ascend/descend 7 stairs this date with B UE assist on HR and noUE assist on AD for support with step to pattern and CGA for safety. SET STAFF FITTER provides skilled instruct to perform STS transfers requiring VC for proper hand placement to rise and lower self from surface safely and for controlled descent upon sitting to ensure safety. Patient uses BUE to rise and lower self and utilizes FWW upon standing for support with good immediate standing balance displayed - patient achieve stand on first attempt 100% of time this date. SET STAFF FITTER provides skilled instruct to ambulate with FWW with SET STAFF FITTER CGA during - provides cues/education to improve [...] 80% of instruction. [facility]* Visit Details Visit Type -SET STAFF FITTER Routine Visi t Discipline -Physical Therapy Problems [...] intervention at next visit: Next visit with SET STAFF FITTER to continue improving strength and balance in order to maximize safety with ambulation and functional transfers. documented in this encounter [facility] Plan of care note* Visit Details [...] 90% of instruction. documented [facility] this encounter [facility]* Visit [...] 90% of instruction. documented in this encounter [facility]* Visit Details Visit Type -SET STAFF FITTER Routine Visi t Discipline -Physical Therapy Problems [...] intervention at next visit: Next visit with SET STAFF FITTER to continue improving strength and balance in order to maximize safety with ambulation and functional transfers. Home Exercise Program Problem:Home Exercise Program Goal:Home Exercise Program Completed Patient reports: fair compliance Clinician taught: patient Clinician instructed on: SET STAFF FITTER provides skilled instruct to perform standing therex at FWW for support including marching, hip flexion, hs curls, DF/PF, and mini squats 10x each in order to increase strength in weight bearing, progress towards LTGs, and demo increased ease with ambulation. Pt required several seated rest breaks between each exericse and reports my back hurts or im lightheaded. SET STAFF FITTER attempted to encourage pt to stand for prolonged time and pt declined. Patient/caregiver is able to teach back 100% of instruction. Instruct Mobility Problem:Mobility Goal:Mobility Completed Patient reports: no falls Clinician taught: patient Clinician instructed on: SET STAFF FITTER provides skilled instruct to ascend/descend 7 stairs this date with one UE assist on HR and no UE assist on AD for support with step to pattern and SBA. SET STAFF FITTER provides skilled instruct to ambulate 30ft 2x with FWW with SET STAFF FITTER SBA during - provides cues/education to improve overall gait sequencing/pattern to maximize safety and decrease fall risk in order to progress independence towards STGs/LTGs. Pt declined to amb further distances at a time and reports my back hurts. Pt will be obtaining a SPC to trial soon. SET STAFF FITTER provides skilled instruct to perform various transfers as outlined in transfers log requiring cues for appropriate technique and sequencing to maximize safety and to facilitate improved overall independence with ADLs. Patient/caregiver is able to teach back 100% of instruction. documented [facility] encounter [facility]* Visit [...] 90% of instruction. documented [facility] this encounter [facility]* Visit [...] 80% of instruction. [facility] Visit Details [...] 75% of instruction. [facility]* Visit Details [...] 80% of instruction. documented [facility] this encounter [facility]* Visit Details Visit Type -SET STAFF FITTER Routine Visi t Discipline -Physical Therapy Problems [...] intervention at next visit: Next visit with SET STAFF FITTER to continue improving strength and balance in order to maximize safety with ambulation and functional transfers. Home Exercise Program Problem:Home Exercise Program Goal:Home Exercise Program Completed Patient reports: fair compliance Clinician taught: patient Clinician instructed on: SET STAFF FITTER provides skilled instruct to perform seated therex [...] falls Clinician taught: patient Clinician instructed on: SET STAFF FITTER provides skilled instruct to ascend/descend 7 stairs this date with one UE assist on HR and no UE assist on AD for support with step to pattern and SBA. SET STAFF FITTER provides skilled instruct to perform consecutive STS [...] first attempt 100% of time this date. SET STAFF FITTER provides skilled instruct to ambulate with FWW with SET STAFF FITTER SBA during - provides cues/education to improve overall gait sequencing/pattern to maximize safety and decrease fall risk in order to progress independence towards STGs/LTGs. Pt reports she has a SPC coming today. Patient/caregiver is able to teach back 100% of instruction. [facility]* Visit Details Visit Type -RAIL LOADER HH Routine Discipline -Penitentiary Problems Problem Start [...] Management Goal:Pain Completed documented [facility] this encounter [facility]* Visit [...] 90% of instruction. [facility]* Visit Details [...] the 5# weights. documented in this [facility] [facility] Visit Details Visit Type -SET STAFF FITTER Routine Visi t Discipline -Physical Therapy Problems [...] intervention at next visit: Next visit with SET STAFF FITTER to continue improving strength and balance in order to maximize safety with ambulation and functional transfers. Home Exercise Program Problem:Home Exercise Program Goal:Home Exercise Program Completed Patient reports: fair compliance Clinician taught: patient Clinician instructed on: SET STAFF FITTER provides skilled instruct to perform seated therex [...] falls Clinician taught: patient Clinician instructed on: SET STAFF FITTER provides skilled instruct to ascend/descend 7 stairs this date with B UE assist on HR and noUE assist on AD for support with step to pattern and CGA for safety. SET STAFF FITTER provides skilled instruct to perform STS transfers requiring VC for proper hand placement to rise and lower self from surface safely and for controlled descent upon sitting to ensure safety. Patient uses BUE to rise and lower self and utilizes FWW upon standing for support with good immediate standing balance displayed - patient achieve stand on first attempt 100% of time this date. SET STAFF FITTER provides skilled instruct to ambulate with FWW with SET STAFF FITTER CGA during - provides cues/education to improve overall gait sequencing/pattern to maximize safety and decrease fall risk in order to progress independence towards STGs/LTGs. Pt unable to amb further distances at a time due to becoming light headed while up. Patient/caregiver is able to teach back 100% of instruction. [facility] Visit Details Visit Type -SET STAFF FITTER Routine Visi t Discipline -Physical Therapy Problems [...] intervention at next visit: Next visit with SET STAFF FITTER to continue improving strength and balance in order to maximize safety with ambulation and functional transfers. Home Exercise Program Problem:Home Exercise Program Goal:Home Exercise Program Completed Patient reports: fair compliance Clinician taught: patient Clinician instructed on: SET STAFF FITTER provides skilled instruct to perform standing therex at FWW for support including marching, hip flexion, hs curls, DF/PF, and mini squats 10x each in order to increase strength in weight bearing, progress towards LTGs, and demo increased ease with ambulation. Pt required several seated rest breaks between each exericse and reports my back hurts or im lightheaded. SET STAFF FITTER attempted to encourage pt to stand for prolonged time and pt declined. Patient/caregiver is able to teach back 100% of instruction. Instruct Mobility Problem:Mobility Goal:Mobility Completed Patient reports: no falls Clinician taught: patient Clinician instructed on: SET STAFF FITTER provides skilled instruct to ascend/descend 7 stairs this date with one UE assist on HR and no UE assist on AD for support with step to pattern and SBA. SET STAFF FITTER provides skilled instruct to ambulate 30ft 2x with FWW with SET STAFF FITTER SBA during - provides cues/education to improve overall gait sequencing/pattern to maximize safety and decrease fall risk in order to progress independence towards STGs/LTGs. Pt declined to amb further distances at a time and reports my back hurts. Pt will be obtaining a SPC to trial soon. SET STAFF FITTER provides skilled instruct to perform various transfers as outlined in transfers log requiring cues for appropriate technique and sequencing to maximize safety and to facilitate improved overall independence with ADLs. Patient/caregiver is able to teach back 100% of instruction. [facility] Visit Details Visit Type -SET STAFF FITTER Routine Visi t Discipline -Physical Therapy Problems [...] intervention at next visit: Next visit with SET STAFF FITTER to continue improving strength and balance in order to maximize safety with ambulation and functional transfers. [facility] Visit Details Visit Type -SET STAFF FITTER Routine Visi t Discipline -Physical Therapy Problems [...] compliance Clinician taught: patient Clinician instructed on: SET STAFF FITTER provided extensive education on importance of compliance with HEP and purpose of completing daily in oder to facilitate strength, balance, and endurance in order to return to PLOF. Pt verbalized fair understanding. Patient/caregiver is able to teach back 100% of instruction. Instruct Mobility Problem:Mobility Goal:Mobility Completed Patient reports: no falls Clinician taught: patient Clinician instructed on: SET STAFF FITTER provides skilled instruct to ascend/descend 7 stairs this date with one UE assist on HR and one UE assist on SPC for support with step to pattern and SBA. SET STAFF FITTER provides skilled instruct to perform various transfers as outlined in transfers log requiring cues for appropriate technique and sequencing to maximize safety and to facilitate improved overall independence with ADLs. SET STAFF FITTER provides skilled instruct to ambulate 30ft 3x with SPC with SET STAFF FITTER CGA during - provides cues/education to improve [...] in. Pt was still in bed when SET STAFF FITTER arrived at 11:15am. pt required cues for proper sequencing of spc today with fair+ return. SET STAFF FITTER provides skilled instruct to perform consecutive STS [...] 100% of instruction. documented in this encounter [facility] Plan of care note* Visit Details [...] Fingerstick Collection Date/Frequency: 12/13/23. Communicate results to [facility]. Instruct on special precautions and when to contact the provider. If fingerstick INR is 4 or greater, perform a peripheral lab draw. [facility] Visit [...] Care Plan Scheduled [facility] Visit Details Visit Type -SET STAFF FITTER Routine Visi t Discipline -Physical Therapy Problems [...] compliance Clinician taught: patient Clinician instructed on: SET STAFF FITTER provided extensive education on importance of compliance with HEP and purpose of completing daily in oder to facilitate strength, balance, and endurance in order to return to PLOF. Pt verbalized fair understanding. Patient/caregiver is able to teach back 100% of instruction. Instruct Mobility Problem:Mobility Goal:Mobility Completed Patient reports: no falls Clinician taught: patient Clinician instructed on: SET STAFF FITTER provides skilled instruct to ascend/descend 7 stairs this date with one UE assist on HR and one UE assist on SPC for support with step to pattern and SBA. SET STAFF FITTER provides skilled instruct to perform various transfers as outlined in transfers log requiring cues for appropriate technique and sequencing to maximize safety and to facilitate improved overall independence with ADLs. SET STAFF FITTER provides skilled instruct to ambulate 30ft 3x with SPC with SET STAFF FITTER CGA during - provides cues/education to improve [...] in. Pt was still in bed when SET STAFF FITTER arrived at 11:15am. pt required cues for proper sequencing of spc today with fair+ return. SET STAFF FITTER provides skilled instruct to perform consecutive STS [...] 100% of instruction. [facility] Visit [...] 100% of instruction. [facility] Visit Details Visit Type -SET STAFF FITTER Routine Visi t Discipline -Physical Therapy Problems [...] intervention at next visit: Next visit with SET STAFF FITTER to continue improving strength and balance in order to maximize safety with ambulation and functional transfers. Home Exercise Program Problem:Home Exercise Program Goal:Home Exercise Program Completed Patient reports: poor compliance with HEP Clinician taught: patient Clinician instructed on: SET STAFF FITTER provides skilled instruct to peform various balance [...] AD. Clinician taught: patient Clinician instructed on: SET STAFF FITTER provides skilled instruct to ambulate 110ft with no AD with SET STAFF FITTER CGA-SBA during - provides cues/education to improve overall gait sequencing/pattern to maximize safety and decrease fall risk in order to progress independence towards STGs/LTGs. SET STAFF FITTER provides skilled instruct to perform consecutive STS [...] 100% of instruction. [facility] Visit Details Visit Type -SET STAFF FITTER Routine Visi t Discipline -Physical Therapy Problems [...] intervention at next visit: Next visit with SET STAFF FITTER to continue improving strength and balance in order to maximize safety with ambulation and functional transfers. Home Exercise Program Problem:Home Exercise Program Goal:Home Exercise Program Completed Patient reports: poor compliance Clinician taught: patient Clinician instructed on: SET STAFF FITTER provides skilled instruct to perform standing therex [...] falls Clinician taught: patient Clinician instructed on: SET STAFF FITTER provides skilled instruct to perform various transfers as outlined in transfers log requiring cues for appropriate technique and sequencing to maximize safety and to facilitate improved overall independence with ADLs. SET STAFF FITTER provides skilled instruct to ascend/descend 6 stairs this date with one UE assist on HR and no UE assist on AD for support with alternating pattern and SBA. SET STAFF FITTER provides skilled instruct to ambulate with no AD with SET STAFF FITTER SBA during - provides cues/education to improve overall gait sequencing/pattern to maximize safety and decrease fall risk in order to progress independence towards STGs/LTGs. Pt unable to amb further distances today and reports I can feel it in my legs their getting tired. Patient/caregiver is able to teach back 100% of instruction. [facility] Visit Details Visit Type -SET STAFF FITTER Routine Visi t Discipline -Physical Therapy Problems [...] intervention at next visit: Next visit with SET STAFF FITTER to continue improving strength and balance in order to maximize safety with ambulation and functional transfers. Home Exercise Program Problem:Home Exercise Program Goal:Home Exercise Program Completed Patient reports: poor compliance Clinician taught: patient Clinician instructed on: SET STAFF FITTER reviews HEP with patient. Patient demos good recall with technique and reports poor compliance with exercise program. Education provided on importance of performing HEP daily to facilitate strength and balance to return to PLOF. Patient/caregiver is able to teach back 100% of instruction. Instruct Mobility Problem:Mobility Goal:Mobility Completed Patient reports: no falls Clinician taught: patient Clinician instructed on: SET STAFF FITTER provides skilled instruct to ambulate with no AD with SET STAFF FITTER SBA during - provides cues/education to improve overall gait sequencing/pattern to maximize safety and decrease fall risk in order to progress independence towards STGs/LTGs. Pt required cues for increased step length/height. SET STAFF FITTER provides skilled instruct to perform consecutive STS [...] 100% of time this date with SBA. SET STAFF FITTER provides skilled instruct to peform various balance [...] 100% of instruction. [facility] Visit Details Visit Type -RAIL LOADER Routine Discipline -Penitentiary Problems Problem Start Date [...] of care note* Visit Details Visit Type -SET STAFF FITTER Routine Visi t Discipline -Physical Therapy Problems [...] intervention at next visit: Next visit with SET STAFF FITTER to continue improving strength and balance in order to maximize safety with ambulation and functional transfers. Home Exercise Program Problem:Home Exercise Program Goal:Home Exercise Program Completed Patient reports: poor compliance Clinician taught: patient Clinician instructed on: SET STAFF FITTER provides skilled instruct to peform various balance [...] falls Clinician taught: patient Clinician instructed on: SET STAFF FITTER provides skilled instruct to perform consecutive STS [...] first attempt 100% of time this date. SET STAFF FITTER provides skilled instruct to ascend/descend 7 stairs this date with one UE assist on HR and no UE assist on AD for support with step to pattern and S. SET STAFF FITTER provides skilled instruct to ambulate with no AD with SET STAFF FITTER SBA during - provides cues/education to improve overall gait sequencing/pattern to maximize safety and decrease fall risk in order to progress independence towards STGs/LTGs. Patient/caregiver is able to teach back 100% of instruction. [facility] Visit Details Visit Type -SET STAFF FITTER Routine Visi t Discipline -Physical Therapy Problems [...] 90% of instruction. Instruct Post-op Care Problem:Disease-Spec [facility] Rehabilitation Goal:Post-Surgical Task already performed Instruct Mobility Problem:Mobility Goal:Mobility Completed Patient reports: ADLS with no AD Clinician taught: patient Clinician instructed on: SET STAFF FITTER provides skilled instructions to ambulate short functional distances in home of 3 minute bout with no AD. Pt demo slow pacing with decreased step height and stride length with SET STAFF FITTER providing CG/SBA during for safety. Verbal cues to improve posture, step height and stride length with 80% recall of proper energy conservation techniques such as posture, breathing and slowing pace. Fatigue reported after with some SOB and vitals WNL, noted SET STAFF FITTER attempted extending time bout to improve endurance however patient refused stating she needed sitting rest break. SET STAFF FITTER provided instructions for patient to ascend and [...] Care Plan Scheduled [facility] Visit Details Visit Type -SET STAFF FITTER Routine Visi t Discipline -Physical Therapy Problems [...] 90% of instruction. Instruct Post-op Care Problem:Disease-Spec [facility] Rehabilitation Goal:Post-Surgical Task already performed Instruct Mobility Problem:Mobility Goal:Mobility Completed Patient reports: ADLS with no AD Clinician taught: patient Clinician instructed on: SET STAFF FITTER provides skilled instructions to ambulate short functional distances in home of 3 minute bout with no AD. Pt demo slow pacing with decreased step height and stride length with SET STAFF FITTER providing CG/SBA during for safety. Verbal cues to improve posture, step height and stride length with 80% recall of proper energy conservation techniques such as posture, breathing and slowing pace. Fatigue reported after with some SOB and vitals WNL, noted SET STAFF FITTER attempted extending time bout to improve endurance however patient refused stating she needed sitting rest break. SET STAFF FITTER provided instructions for patient to ascend and [...] 80% of instruction. [facility] Visit Details Visit Type -SET STAFF FITTER Routine Visi t Discipline -Physical Therapy Problems [...] intervention at next visit: Next visit with SET STAFF FITTER to continue improving strength and balance in order to maximize safety with ambulation and functional transfers. Home Exercise Program Problem:Home Exercise Program Goal:Home Exercise Program Completed Patient reports: poor compliance Clinician taught: patient Clinician instructed on: SET STAFF FITTER provides skilled instruct to peform various balance [...] falls Clinician taught: patient Clinician instructed on: SET STAFF FITTER provides skilled instruct to perform consecutive STS [...] first attempt 100% of time this date. SET STAFF FITTER provides skilled instruct to ascend/descend 7 stairs this date with one UE assist on HR and no UE assist on AD for support with step to pattern and S. SET STAFF FITTER provides skilled instruct to ambulate with no AD with SET STAFF FITTER SBA during - provides cues/education to improve overall gait sequencing/pattern to maximize safety and decrease fall risk in order to progress independence towards STGs/LTGs. Patient/caregiver is able to teach back 100% of instruction. [facility] Visit Details Visit Type -SET STAFF FITTER Routine Visi t Discipline -Physical Therapy Problems [...] intervention at next visit: Next visit with SET STAFF FITTER to continue improving strength and balance in order to maximize safety with ambulation and functional transfers. Home Exercise Program Problem:Home Exercise Program Goal:Home Exercise Program Completed Patient reports: poor compliance Clinician taught: patient Clinician instructed on: SET STAFF FITTER reviews HEP with patient. Patient demos good recall with technique and reports poor compliance with exercise program. Education provided on importance of performing HEP daily to facilitate strength and balance to return to PLOF. Patient/caregiver is able to teach back 100% of instruction. Instruct Mobility Problem:Mobility Goal:Mobility Completed Patient reports: no falls Clinician taught: patient Clinician instructed on: SET STAFF FITTER provides skilled instruct to ambulate with no AD with SET STAFF FITTER SBA during - provides cues/education to improve overall gait sequencing/pattern to maximize safety and decrease fall risk in order to progress independence towards STGs/LTGs. Pt required cues for increased step length/height. SET STAFF FITTER provides skilled instruct to perform consecutive STS [...] 100% of time this date with SBA. SET STAFF FITTER provides skilled instruct to peform various balance [...] 100% of instruction. [facility] Visit Details Visit Type -RAIL LOADER Routine Discipline -Penitentiary Problems Problem Start Date [...] Visit Type -SN [facility] Agency [place] Discipline -Penitentiary Problems Problem [...] See narrative note. [facility] Narratives INR to be [...] [facility] Narratives INR to be [...] with result of 2.3. Results called into [facility] and spoke with Pharm. Cisneros. [...] back down because i just keep leaking. SET STAFF FITTER checked pt vitals and BP running slightly high, but pt states she has not had a chance to take her medication yet. SET STAFF FITTER notified PCP. Education provided on importance of [...] through progressive interventions/education [facility] Actions Homebound Status Criteria 1: Assistive Device(s): Cane and Walker Needs assistance of at least 1 to leave home Criteria 2: Patient confined to home due to limited ambulation related to cardiac sx Type of Home: split level / walkout DC patient once goals are met and max potential has been achieved through progressive interventions/education [facility] Actions Homebound Status [...] back down because i just keep leaking. SET STAFF FITTER checked pt vitals and BP running slightly high, but pt states she has not had a chance to take her medication yet. SET STAFF FITTER notified PCP. Education provided on importance of [...] Rolling Walker Narratives INR called into the [facility]; spoke with Yenny. New coumadin [...] 12/26/23. Order for skin prep placed with [facility]. [facility]* Actions CP assess, BP elevated, all other VS WNL. Dr Quispe aware of increased BP. Fingerstick INR of 4.4. Coumadin clinic updated. She is to hold tonights dose. Attempted two blood draws without success. Patient will go to [facility] tomorrow to get her BMP and [...] INR result of 2.1. Result called into [facility]. No new orders received. Pt verbalizes understanding coumadin dose to remain the same. Pt reports she will be going back to work and requests to be DC from home care. Coumadin clinic made aware pt will need to be seen in office starting next week. manager hospice made aware of pt request. Vital signs [...] day to rest. 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 July 23, 2024 8:43pm Living Will No August 14, 2024 7:33am Power of Channel Business Manager No August 14 7:33am Living Will No July 18 11:13am Power of Channel Business Manager Yes July 18, 2024 11:13am Name of Medical Power of Channel Business Manager SRIRAMKAREN DRISCOLLMATY July 18, 2024 11:13am Living Will Yes July 31, 2024 6:15pm Power of Channel Business Manager Yes July 31 6:15pm Name of Medical Power of Channel Business Manager SRIRAM July 31, 2024 6:15pm Advance Directive Response Recorded Date/ Time Living Will Yes July 23 8:43pm Do you have a Healthcare Power of Channel Business Manager? Yes July 23, 2024 8:43pm Name of Medical Power of Channel Business Manager ? July 23, 2024 8:43pm Living Will No August 14, 2024 12:54pm Do you have a Healthcare Power of Channel Business Manager? No August 14, 2024 12:54pm Living Will No July 18 11:13am Do you have a Healthcare Power of Channel Business Manager? Yes July 18, 2024 11:13am Name of Medical Power of Channel Business Manager SRIRAM AMERICOON July 18, 2024 11:13am Living Will Yes July 31, 2024 6:15pm Do you have a Healthcare Power of Channel Business Manager? Yes July 31, 2024 6:15pm Name of Medical Power of Channel Business Manager SRIRAM July 31, 2024 6:15pm Advance Directive Response Recorded Date/ Time Living Will Yes July 23 8:43pm Do you have a Healthcare Power of Channel Business Manager? Yes July 23, 2024 8:43pm Name of Medical Power of Channel Business Manager ? July 23, 2024 8:43pm Living Will No August 14, 2024 12:54pm Do you have a Healthcare Power of Channel Business Manager? No August 14, 2024 12:54pm Living Will No September 15, 2024 4:31am Do you have a Healthcare Power of Channel Business Manager? Yes September 15, 2024 4:31am Name of Medical Power of Channel Business Manager sriram--sister September 15, 2024 4:31am Living Will No July 18 11:13am Do you have a Healthcare Power of Channel Business Manager? Yes July 18, 2024 11:13am Name of Medical Power of Channel Business Manager SRIRAM ALVARES July 18, 2024 11:13am Living Will Yes July 31, 2024 6:15pm Do you have a Healthcare Power of Channel Business Manager? Yes July 31, 2024 6:15pm Name of Medical Power of Channel Business Manager SRIRAM July 31, 2024 6:15pm Reason for Referral Status Reason Specialty Diagnoses / Procedures Referred By Contact Referred To Contact Authorized Physical Medicin e and Rehabilitation Diagnoses Chronic left hip pain Bambi Huynh MD [address] [place] [id number] Sanjay Reyes, [address] Caruso [address] [place] [id number] Status Reason Specialty Diagnoses / Procedures Referred By Contact Referred To Contact Authorized Physical Therapy / Rehabilitation Diagnoses Hip pain, bilateral Bambi Huynh MD [address] [place] [address] [facility] [address] [place] [id number] Specialty Diagnoses / Procedures Referred By Contac t Referred To Contact Radiology Diagnoses Post-menopause Procedures XR Bone Density DEXA Axial Ying Quispe, DO [address] [place] [address] Referral ID Status Reason Start Date Expiration Date V isits Requested Visits Authorized [id number] Authorized 11/18/2021 11/18/2022 1 1 Specialty Diagnoses / Procedures Referred By Contac t Referred To Contact Radiology Diagnoses Encounter for screening mammogram for malignant neoplasm of breast Procedures Mammography Screening Jose Bilateral Ying Quispe, DO [address] [place] [address] Referral ID Status Reason Start Date Expiration Date V isits Requested Visits Authorized [id number] Authorized 11/18/2021 11/18/2022 1 1 Specialty Diagnoses / Procedures Referred By Contac t Referred To Contact Hematology and Oncology Diagnoses Acute deep vein thrombosis (DVT) of axillary vein of left upper extremity (HCC) Ying Quispe, DO [address] [place] [address] Lita Gu MD [address] [place] [phone] Referral ID Status Reason Start Date Expiration Date V isits Requested Visits Authorized [id number] Authorized 06/27/2022 06/27/2023 1 1 Specialty Diagnoses / Procedures Referred By Contac t Referred To Contact Radiology Diagnoses Acute deep vein thrombosis (DVT) of axillary vein of left upper extremity (HCC) Current smoker Cigarette smoker Screening for malignant neoplasm of respiratory organ Procedures CT Lung Cancer Screening Lita Gu MD [address] [facility] [place] [phone] Referral ID Status Reason Start Date Expiration Date V isits Requested Visits Authorized [id number] New Request 09/14/2022 09/14/2023 1 1 Specialty Diagnoses / Procedures Referred By Contac t Referred To Contact Radiology Diagnoses History of deep venous thrombosis Current smoker Transaminitis Factor V Leiden mutation (HCC) Lymphadenopathy Decreased muscle strength Lung nodule seen on imaging study Procedures MR Brain With And Without Contrast Lita Gu MD [address] [facility] [place] [phone] Referral ID Status Reason Start Date Expiration Date V isits Requested Visits Authorized [id number] New Request 10/18/2022 10/18/2023 1 1 Specialty Diagnoses / Procedures Referred By Joanne t Referred To Contact Radiology Diagnoses History of deep venous thrombosis Current smoker Transaminitis Factor V Leiden mutation (HCC) Lymphadenopathy Decreased muscle strength Lung nodule seen on imaging study Procedures PET Tumor Imaging With CT Skull To Thigh Lita Gu MD [address] [place] [address] Referral ID Status Reason Start Date Expiration Date V isits Requested Visits Authorized [id number] New Request 10/18/2022 10/18/2023 4 4 Specialty Diagnoses / Procedures Referred By Joanne mercedes Referred To Contact Neurology Diagnoses History of deep venous thrombosis Current smoker Transaminitis Factor V Leiden mutation (HCC) Lymphadenopathy Decreased muscle strength Lung nodule seen on imaging study Lita Gu MD [address] [place] [address] [facility] [address] Medical Office Building, 2nd [place] [address] Referral ID Status Reason Start Date Expiration Date Visits Requested Visits Authorized [id number] Authorized Specialty Services Required/Pat ient's Best Interest 09/27/2022 09/27/2023 1 1 Specialty Diagnoses / Procedures Referred By Joanne mercedes Referred To Contact Radiology Diagnoses History of deep venous thrombosis Lymphadenopathy Axillary lymphadenopathy Procedures CT Biopsy Lymph Node Lita Gu MD [address] [place] [address] Referral ID Status Reason Start Date Expiration Date V isits Requested Visits Authorized [id number] New Request 11/08/2022 11/08/2023 1 1 Specialty Diagnoses / Procedures Referred By Contact Referred To Contact Interventional Radiology Diagnoses History of deep venous thrombosis Lymphadenopathy Axillary lymphadenopathy Lita Gu MD [address] [place] [address] Ir Stefan [address] [place] [address] Referral ID Status Reason Start Date Expiration Date Visits Requested Visits Authorized [id number] Authorized Specialty Services Required/Pat ient's Best Interest 10/25/2022 10/25/2023 1 1 Specialty Diagnoses / Procedures Referred By Contact Referred To Contact Anticoagulation Monitoring Diagnoses History of deep venous thrombosis Reactive lymphadenopathy Factor V Leiden mutation (HCC) Lita Gu MD [address] [facility] [place] [address] [place] [address] Referral ID Status Reason Start Date Expiration Date Visits Requested Visits Authorized [id number] Authorized Specialty Services Required/Pat ient's Best Interest [...] Expiration Date V isits Requested Visits Authorized [id number] Authorized 02/08/2023 02/08/2024 1 1 Specialty Diagnoses / Procedures Referred By Contac t Referred To Contact Cardiology Diagnoses Right-sided low back pain with right-sided sciatica, unspecified chronicity Procedures Segmental Doppler Lower Extremity Arterial Yfn Puckett Jr., DPM [address] [place] [address] [address] [place] [place] [address] Referral ID Status Reason Start Date Expiration Date V isits Requested Visits Authorized [id number] Authorized 07/04/2023 07/03/2024 1 1 Specialty Diagnoses / Procedures Referred By Contac t Referred To Contact Neurosurgery Diagnoses Lumbosacral radiculopathy Yfn Puckett Jr., DPM [address] [place] [address] Nenita Khan MD [address] [place] [phone] Referral ID Status Reason Start Date Expiration Date V isits Requested Visits Authorized [id number] Authorized 08/01/2023 07/31/2024 1 1 Specialty Diagnoses / Procedures Referred By Contac t Referred To Contact Radiology Diagnoses Lumbosacral radiculopathy Weakness of right lower extremity Paresthesias Procedures MR Lumbar Spine Without Contrast Theresa Boykin PA-C [address] [place] [phone] Referral ID Status Reason Start Date Expiration Date V isits Requested Visits Authorized [id number] New Request 08/24/2023 08/23/2024 1 1 Specialty Diagnoses / Procedures Referred By Contac t Referred To Contact Neurology Diagnoses Weakness of right lower extremity Paresthesias Theresa Boykin PA-C [address] [place] [phone] Referral ID Status Reason Start Date Expiration Date V isits Requested Visits Authorized [id number] Authorized 08/24/2023 08/23/2024 1 1 Specialty Diagnoses / Procedures Referred By Contac t Referred To Contact Cardiology Diagnoses Ruptured abdominal aortic aneurysm (AAA), unspecified part (HCC) Procedures Ultrasound renal artery duplex, complete Tylor Kruger MD 37[address] [facility] [address] [place] [address] Referral ID Status Reason Start Date Expiration Date V isits Requested Visits Authorized [id number] Authorized 11/11/2023 11/10/2024 1 1 Specialty Diagnoses / Procedures Referred By Contac t Referred To Contact Home Health Services Diagnoses Hypertension, unspecified type Orthostatic hypotension TUTU (acute kidney injury) (HCC) Debility Ruptured abdominal aortic aneurysm (AAA), unspecified part (HCC) Aftercare following surgery of the circulatory system Ying Quispe DO [address] [place] [address] [address] Referral ID Status Reason Start Date Expiration Date V isits Requested Visits Authorized [id number] Authorized 11/02/2023 11/01/2024 1 1 Scheduling Instructions Pt must make office appt any with PCP Ying Quispe DO Specialty Diagnoses / Procedures Referred By Contac t Referred To Contact Radiology Diagnoses 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) PVD (peripheral vascular disease) (HCC) Procedures CT Angiogram Abdominal Aorta With Lower Extremity Tylor Kruger MD [address] [place] [address] Referral ID Status Reason Start Date Expiration Date V isits Requested Visits Authorized [id number] New Request 11/18/2023 11/17/2024 1 1 Specialty Diagnoses / Procedures Referred By Contac t Referred To Contact Wound Care Diagnoses PVD (peripheral vascular disease) (HCC) Tylor Kruger MD [address] [address] [facility] [address] [place] [address] Referral ID Status Reason Start Date Expiration Date Visits Requested Visits Authorized [id number] Authorized Specialty Services Required/Pat ient's Best Interest 11/21/2023 11/20/2024 1 1 Specialty Diagnoses / Procedures Referred By Contac t Referred To Contact Cardiology Diagnoses PVD (peripheral vascular disease) (HCC) Ischemia of toe Procedures US Doppler ankle/brachial index Abigail Estrella, REGISTERED NURSE CARDIOVASCULAR ICU [address] [place] [address] [facility] [address] [place] [address] [place] [address] Referral ID Status Reason Start Date Expiration Date V isits Requested Visits Authorized [id number] Authorized 11/22/2023 11/21/2024 1 1 Specialty Diagnoses / Procedures Referred By Contac t Referred To Contact Cardiology Diagnoses 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) Procedures US Abdominal Aortic Aneurysm Duplex (AAA) Sarath Rey MD [address] [place] [address] Referral ID Status Reason Start Date Expiration Date V isits Requested Visits Authorized [id number] Authorized 12/26/2023 12/25/2024 1 1 Specialty Diagnoses / Procedures Referred By Contac t Referred To Contact Cardiology Diagnoses Renal insufficiency Procedures Ultrasound renal artery stenosis hypertension limited Sarath Rey MD [address] [place] [address] Referral ID Status Reason Start Date Expiration Date V isits Requested Visits Authorized [id number] Authorized 12/26/2023 12/25/2024 1 1 Specialty Diagnoses / Procedures Referred By Contac t Referred To Contact Nephrology Diagnoses Renal insufficiency Sarath Rey MD [address] [place] [address] Yisel Paiz MD [address] [place] [address] Referral ID Status Reason Start Date Expiration Date Visits Requested Visits Authorized [id number] Authorized Specialty Services Required/Pat ient's Best Interest 12/26/2023 12/25/2024 1 1 Specialty Diagnoses / Procedures Referred By Contac t Referred To Contact Radiology Diagnoses 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) Postoperative leak Procedures CT Angiogram Chest Abdomen Pelvis Sarath Rey MD [address] [place] [address] Referral ID Status Reason Start Date Expiration Date V isits Requested Visits Authorized [id number] New Request 01/05/2024 01/04/2025 1 1 History of Present Illness * Bambi Huynh MD - 2018 8:19 AM EST [facility] [address] [facility] [address] Ganesh Arndt [address] [place], [place] [address] [address] [place] 1960 [id number] HPI: 58-year-old female with hypothyroidism, hyperlipidemia, chronic [...] understand their medications Are you taking any lvio-oif-nlhxgvb medications or supplements? Patient Response: OTC Multivitamins and [place] Since last being seen in this office, have you seen another healthcare provider? Patient Response: Yes. If yes, where did you see this provider? Dentist in this encounter* Bambi Huynh MD - 09/14/2018 1:22 PM EDT [facility] Simba Reese [address] [place] [address] [place] 1960 [id number] HPI: 58-year-old female added to the schedule [...] appendicitis of course. Doubt focal colitis. Consider QUALITY COORDINATOR source but suspicion low forPID. Ovarian cyst [...] understand their medications Are you taking any zswj-rht-kgfgvrv medications or supplements? Patient Response: OTC Multivitamins Since last being seen in this office, have you seen another healthcare provider? Patient Response: No documented in this encounter* Татьяна Jenkins MD - 09/15/2018 9:47 AM EDT [facility] PATIENT: Scott Obregon DATE / TIME: 09/15/18 [...] Jenkins MD - 10/12/2018 3:00 PM EDT [facility] PATIENT: Scott Obregon DATE / TIME: 10/12/18 [...] PATHOLOGY: Case Report Surgical Pathology Report Case: [id number] Authorizing Provider: Татьяна Jenkins MD Collected: 09/14/2018 10:48 PM Ordering Location: [facility] Periop Received: 09/17/2018 10:42 AM Pathologist: Jaron [...] Serial sections demonstrate a thickened appendiceal wall. Poultry Eviscerator sections of appendix are submitted in2 cassettes. JF;dipak Gross examination performed at: [facility] - [address] [place] [address] Microscopic Description Microscopic examination is performed. ASSESSMENT: The patient is a 58-year-old female status post laparoscopic appendectomy 09/14/2018 PLAN: The patient is recovering well. Follow-up as needed documented in this encounter* Mendez Roy MD - 11/07/2018 7:38 AM EDT Dictation on: 11/07/2018 7:38 AM by: MENDEZ ROY [[id number]] documented in this encounter* Leanne Gomes PTA - 04/17/2019 5:30 PM EST [facility] DAILY TREATMENT NOTE Today's Date [...] Treatments: Physical Therapy Exercise Log - 04/17/19 6084 OTHER Precautions/Contraindications [phone] Notes Supervising PT Fuad 8 Therapeutic Exercise (64515) Intervention SciFit L2, 5 minutes Parameters PT [...] expected. Plan for Next Visit: cont Leanne oGmes PTA STATE LICENSE, [id number] documented in this encounter* Oh Crockett PTA - 04/24/2019 1:45 PM EST [facility] DAILY TREATMENT NOTE Today's Date [...] Notes Supervising PT Fuad 8 Therapeutic Exercise (19788) Intervention SciFit L2, 5 minutes Parameters PT [...] Cont POC Oh Crockett PTA STATE LICENSE, [id number] documented in this encounter* Fuad Pisano, PT - 05/01/2019 5:30 PM EST [facility] DAILY TREATMENT NOTE Today's Date [...] Treatments: Physical Therapy Exercise Log - 05/01/19 0999 OTHER Notes Supervising PT Fuad Krystin Therapeutic Exercise (35684) Intervention SciFit L2, 5 minutes Parameters PT [...] Progress towards goals as expected. Discharge to HEP Fuad Pisano PT STATE LICENSE, [id number] documented in this encounter* Rebeca Kaur, REGISTERED NURSE CARDIOVASCULAR ICU - 12/06/2019 11:10 AM EDT Patient Name: [facility] Location: [place] [address] [place] [id number] Date Of : Date Of Visit: 1960 12/06/2019 MRN# Provider: [id number] Rebeca Kaur CNP Chief Complaint Patient presents [...] Gets together: Three times a week Attends mandaeism service: Not on file Active member of [...] nursing note reviewed. Exam conducted with a development eng present (Dara SINGER). Constitutional: General: She is not in acute distress. Appearance: Normal appearance. She is well-developed. She is not ill-appearing, toxic-appearing or diaphoretic. HENT: Head: Normocephalic and atraumatic. Right Ear: Tympanic membrane, ear canal and external ear normal. Left Ear: Tympanic membrane, ear canal and external ear normal. Mouth/Throat: Lips: [place]. Mouth: Mucous membranes are moist. Pharynx: Uvula [...] include drinking lots of fluids and taking ahdf-kda-tmjgmix pain medicine. You will probably feel better [...] amount of fluids you drink. Take an lycs-zaw-enacdth pain medicine, such as acetaminophen (Tylenol), ibuprofen (Advil, Motrin),or naproxen (Aleve). Read and follow all instructions on the label. Before you use cough and cold medicines, check the label. These medicines may not be safe for youngchildren or for people with certain health problems. Be careful when taking kohw-ure-olhjozc cold or flu medicines and Tylenol at [...] good. When should you call for help? [id number] anytime you think you may need emergency [...] Log into your personal health record on [email or web address] and enter K520 in the Education box to learn more about Upper Respiratory Infection (Cold): Care Instructions. Current as of: July 22, 2019 Content Version: 12.5 General Blood. Care instructions adapted under license by your healthcare professional. If you have questions about a medical condition or this instruction, always ask your healthcare professional. General Blood disclaims any warranty or liability for your use of this information. Coronavirus (COVID-19): Care Instructions Overview The coronavirus disease (COVID-19) is caused by a virus. Symptoms may include a fever, a cough, andshortness of breath. It mainly spreads ztwvfd-et-dyglgw through droplets from coughing and sneezing. The [...] water aren't available, use an alcohol-based hand grain shipper. Don't share personal household items. These include bedding, towels, cups and glasses, and eating utensils. Wash laundry in the warmest water allowed for the fabric type, and dry it completely.It's okay to wash other people's laundry with yours. Clean and disinfect your home every day. Use household promotion producer and disinfectant wipes or sprays. Take special care to clean things that you grab with your hands. These include doorknobs, remote controls, phones, and handles on your refrigerator and microwave. And don't forget countertops, tabletops, bathrooms, and computer keyboards. When should you call for help? [id number] anytime you think you may need emergency [...] of: October 25, 2019 Content Version: 12.5 General Blood. Care instructions adapted under license by your healthcare professional. If you have questions about a medical condition or this instruction, always ask your healthcare professional. General Blood disclaims any warranty or liability for your [...] Log into your personal health record on [email or web address] and enter O319 in the Education box to learn more about Learning About Benefits From Quitting Smoking. Current as of: August 08, 2019 Content Version: 12.5 [id number] General Blood. Care instructions adapted under license by your healthcare professional. If you have questions about a medical condition or this instruction, always ask your healthcare professional. General Blood disclaims any warranty or liability for your [...] - 12/06/2019 11:10 AM EDT Patient Name: [facility] Location: [place] [address] [place] [phone] Date Of : Date Of Visit: 1960 12/06/2019 MRN# Provider: [id number] Rebeca Kaur CNP Chief Complaint Patient presents [...] Gets together: Three times a week Attends mandaeism service: Not on file Active member of [...] nursing note reviewed. Exam conducted with a development eng present (Dara SINGER). Constitutional: General: She is not in acute distress. Appearance: Normal appearance. She is well-developed. She is not ill-appearing, toxic-appearing or diaphoretic. HENT: Head: Normocephalic and atraumatic. Right Ear: Tympanic membrane, ear canal and external ear normal. Left Ear: Tympanic membrane, ear canal and external ear normal. Mouth/Throat: Lips: [place]. Mouth: Mucous membranes are moist. Pharynx: Uvula [...] include drinking lots of fluids and taking igqx-jvf-lgxnrdb pain medicine. You will probably feel better [...] amount of fluids you drink. Take an acmo-axk-gstrlfd pain medicine, such as acetaminophen (Tylenol), ibuprofen (Advil, Motrin),or naproxen (Aleve). Read and follow all instructions on the label. Before you use cough and cold medicines, check the label. These medicines may not be safe for youngchildren or for people with certain health problems. Be careful when taking ukqz-frs-qeueeed cold or flu medicines and Tylenol at [...] good. When should you call for help? [id number] anytime you think you may need emergency [...] Log into your personal health record on [email or web address] and enter K520 in the Education box to learn more about Upper Respiratory Infection (Cold): Care Instructions. Current as of: July 22, 2019 Content Version: 12.5 General Blood. Care instructions adapted under license by your healthcare professional. If you have questions about a medical condition or this instruction, always ask your healthcare professional. General Blood disclaims any warranty or liability for your use of this information. Coronavirus (COVID-19): Care Instructions Overview The coronavirus disease (COVID-19) is caused by a virus. Symptoms may include a fever, a cough, andshortness of breath. It mainly spreads xwzidj-tk-qvqyxb through droplets from coughing and sneezing. The [...] water aren't available, use an alcohol-based hand grain shipper. Don't share personal household items. These include bedding, towels, cups and glasses, and eating utensils. Wash laundry in the warmest water allowed for the fabric type, and dry it completely.It's okay to wash other people's laundry with yours. Clean and disinfect your home every day. Use household promotion producer and disinfectant wipes or sprays. Take special care to clean things that you grab with your hands. These include doorknobs, remote controls, phones, and handles on your refrigerator and microwave. And don't forget countertops, tabletops, bathrooms, and computer keyboards. When should you call for help? [id number] anytime you think you may need emergency [...] of: October 25, 2019 Content Version: 12.5 [employer], [employer]. Care instructions adapted under license by your healthcare professional. If you have questions about a medical condition or this instruction, always ask your healthcare professional. [employer], [facility] disclaims any warranty or liability for your [...] Log into your personal health record on [email or web address] and enter O319 in the Education box to learn more about Learning About Benefits From Quitting Smoking. Current as of: August 08, 2019 Content Version: 12.5 General Blood. Care instructions adapted under license by your healthcare professional. If you have questions about a medical condition or this instruction, always ask your healthcare professional. General Blood disclaims any warranty or liability for your [...] Pisano, PT - 04/08/2019 5:30 PM EST [facility] Evaluation Today's Date 04/09/2019 Patient [...] to walk 7 miles daily and goto [employer]. Now she isn't able to do any of this. 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 Previous Treatment for this [...] and get back to exercise Social History Bahai, social, or cultural considerations to be made [...] Treatments: Physical Therapy Exercise Log - 04/09/19 8452 OTHER Notes Supervising PT Fuad 8 Therapeutic Exercise (63509) Intervention SciFit Parameters PT performed STM glutes [...] functional abilities Fuad Pisano PT STATE LICENSE, [id number] documented in this encounter* Tisha Do, SET STAFF FITTER - 04/22/2019 5:30 PM EST [facility] DAILY TREATMENT NOTE Today's Date [...] Treatments: Physical Therapy Exercise Log - 04/22/19 0605 OTHER Precautions/Contraindications [id number] concurrent care Notes Supervising PT Fuad Mcclelland Therapeutic Exercise (85665) Intervention SciFit L2, 5 minutes Parameters PT [...] as able. Tisha Do PTA STATE LICENSE, [id number] documented in this encounter* Bambi Huynh MD [...] cyst versusother. She plans to attend either [facility] or [employer]. documented in this encounter* Bambi Huynh MD - 01/14/2019 4:29 PM EDT [facility] [address] [place], [place] [address] [place] 1960 [id number] HPI: 58-year-old female with hypothyroidism, hyperlipidemia, bilateral [...] Gets together: Three times a week Attends mandaeism service: Not on file Active member of [...] MD documented in this encounter* Tisha Do, SET STAFF FITTER - 04/15/2019 5:30 PM EST [facility] DAILY TREATMENT NOTE Today's Date [...] Treatments: Physical Therapy Exercise Log - 04/15/19 1733 OTHER Precautions/Contraindications 535-6:17 concurrent Notes Supervising PT Fuad 8 Therapeutic Exercise (01643) Intervention SciFit L2, 5 minutes NT Parameters [...] per POC. Tisha Do PTA STATE LICENSE, [id number] documented in this encounter* Tisha Do PTA - 04/29/2019 5:30 PM EST [facility] DAILY TREATMENT NOTE Today's Date [...] Treatments: Physical Therapy Exercise Log - 04/29/19 6646 OTHER Notes Supervising PT Fuad Mcclelland Vitals 5:35-6:25 Therapeutic Exercise (03812) Intervention SciFit L2, 5 minutes Parameters PT [...] a difference. Tisha Do PTA STATE LICENSE, [id number] documented in this encounter* Bambi Huynh MD - 03/25/2019 4:39 PM EDT [facility] [address] [place], [place] [address] Scott Obregon 1960 [id number] HPI: Return visit. Patient with hypothyroidism. Has [...] Scott Obregon Date of : 1960 Site: [facility] Provider: Bambi Huynh MD Admit Date: 09/14/2018 [...] Physician(s) Family Provider: Bambi Huynh MD, Address: [address] [place] [address] [place] [address] / [place] [address] Follow Up: No follow-up provider specified. Additional [...] Log into your personal health record on [email or web address] and enter J277 in the Education box to learn more about Learning About Appendectomy. Current as of: April 04, 2018 Content Version: 12.0 2968-9849 General Blood. Care instructions adapted under license by your healthcare professional. If you have questions about a medical condition or this instruction, always ask your healthcare professional. General Blood disclaims any warranty or liability for your use of this information. documented in this encounter Instructions * Patient Instructions* Vincent Rebeca Fabienne, REGISTERED NURSE CARDIOVASCULAR ICU - 12/06/2019 11:46 AM EDT Upper Respiratory [...] include drinking lots of fluids and taking ewyk-ywd-mvuhvuk pain medicine. You will probably feel better [...] amount of fluids you drink. Take an bkse-hft-umhajsk pain medicine, such as acetaminophen (Tylenol), ibuprofen (Advil, Motrin),or naproxen (Aleve). Read and follow all instructions on the label. Before you use cough and cold medicines, check the label. These medicines may not be safe for youngchildren or for people with certain health problems. Be careful when taking dvkx-mwe-qvizdqd cold or flu medicines and Tylenol at [...] good. When should you call for help? [id number] anytime you think you may need emergency [...] Log into your personal health record on [email or web address] and enter K520 in the Education box to learn more about Upper Respiratory Infection (Cold): Care Instructions. Current as of: July 22, 2019 Content Version: 12.5 General Blood. Care instructions adapted under license by your healthcare professional. If you have questions about a medical condition or this instruction, always ask your healthcare professional. General Blood disclaims any warranty or liability for your use of this information. Coronavirus (COVID-19): Care Instructions Overview The coronavirus disease (COVID-19) is caused by a virus. Symptoms may include a fever, a cough, andshortness of breath. It mainly spreads afzzkz-jh-uczagv through droplets from coughing and sneezing. The [...] water aren't available, use an alcohol-based hand grain shipper. Don't share personal household items. These include bedding, towels, cups and glasses, and eating utensils. Wash laundry in the warmest water allowed for the fabric type, and dry it completely.It's okay to wash other people's laundry with yours. Clean and disinfect your home every day. Use household promotion producer and disinfectant wipes or sprays. Take special care to clean things that you grab with your hands. These include doorknobs, remote controls, phones, and handles on your refrigerator and microwave. And don't forget countertops, tabletops, bathrooms, and computer keyboards. When should you call for help? [id number] anytime you think you may need emergency [...] of: October 25, 2019 Content Version: 12.5 General Blood. Care instructions adapted under license by your healthcare professional. If you have questions about a medical condition or this instruction, always ask your healthcare professional. General Blood disclaims any warranty or liability for your [...] Log into your personal health record on [email or web address] and enter O319 in the Education box to learn more about Learning About Benefits From Quitting Smoking. Current as of: August 08, 2019 Content Version: 12.5 General Blood. Care instructions adapted under license by your healthcare professional. If you have questions about a medical condition or this instruction, always ask your healthcare professional. General Blood disclaims any warranty or liability for your [...] include drinking lots of fluids and taking akuy-xok-vqofwho pain medicine. You will probably feel better [...] amount of fluids you drink. Take an cmss-cup-lctgpbn pain medicine, such as acetaminophen (Tylenol), ibuprofen (Advil, Motrin),or naproxen (Aleve). Read and follow all instructions on the label. Before you use cough and cold medicines, check the label. These medicines may not be safe for youngchildren or for people with certain health problems. Be careful when taking xyng-eno-uiicjhw cold or flu medicines and Tylenol at [...] good. When should you call for help? [id number] anytime you think you may need emergency [...] Log into your personal health record on [email or web address] and enter K520 in the Education box to learn more about Upper Respiratory Infection (Cold): Care Instructions. Current as of: July 22, 2019 Content Version: 12.5 General Blood. Care instructions adapted under license by your healthcare professional. If you have questions about a medical condition or this instruction, always ask your healthcare professional. General Blood disclaims any warranty or liability for your use of this information. Coronavirus (COVID-19): Care Instructions Overview The coronavirus disease (COVID-19) is caused by a virus. Symptoms may include a fever, a cough, andshortness of breath. It mainly spreads ythaem-dr-qmlech through droplets from coughing and sneezing. The [...] water aren't available, use an alcohol-based hand grain shipper. Don't share personal household items. These include bedding, towels, cups and glasses, and eating utensils. Wash laundry in the warmest water allowed for the fabric type, and dry it completely.It's okay to wash other people's laundry with yours. Clean and disinfect your home every day. Use household promotion producer and disinfectant wipes or sprays. Take special care to clean things that you grab with your hands. These include doorknobs, remote controls, phones, and handles on your refrigerator and microwave. And don't forget countertops, tabletops, bathrooms, and computer keyboards. When should you call for help? [id number] anytime you think you may need emergency [...] of: October 25, 2019 Content Version: 12.5 General Blood. Care instructions adapted under license by your healthcare professional. If you have questions about a medical condition or this instruction, always ask your healthcare professional. General Blood disclaims any warranty or liability for your [...] Log into your personal health record on [email or web address] and enter O319 in the Education box to learn more about Learning About Benefits From Quitting Smoking. Current as of: August 08, 2019 Content Version: 12.5 General Blood. Care instructions adapted under license by your healthcare professional. If you have questions about a medical condition or this instruction, always ask your healthcare professional. General Blood disclaims any warranty or liability for your [...] Reason for Visit Chief Complaint Admit Date RESIDENTIAL LAB WORK April 17 4:00am N179 April 17, 2024 2:38pm RESIDENTIAL LAB WORK April 24 4:00am PEG TUBE April 30, 2024 1 :29pm RESIDENTIAL LAB WORK May 27 5:00am LAB WORK June 03, 2024 5: 00am PAD June 05, 2024 2: 56pm LAB WORK June 06, 2024 5: 10am LABWORK June 07, 2024 5 :00am LABWORK June 21, 2024 1 1:00pm RESIDENTIAL LAB WORK June 25, 2024 5:00am weight [...] 31 3:42pm Acute upper gastrointestinal bleeding [facility] 2024 3:42pm Anemia July 31, 2024 3:42 [...] 2024 11: 52am Chief Complaint Admit Date RESIDENTIAL LAB WORK April 24 4:00am PEG TUBE April 30, 2024 1 :29pm RESIDENTIAL LAB WORK May 27 5:00am LAB WORK June 03, 2024 5: 00am PAD June 05, 2024 2: 56pm LAB WORK June 06, 2024 5: 10am LABWORK June 07, 2024 5 :00am LABWORK June 21, 2024 1 1:00pm RESIDENTIAL LAB WORK June 25, 2024 5:00am weight [...] July 31 3:42pm Acute upper gastrointestinal bleeding [facility] 2024 3:42pm Anemia July 31, 2024 [...] 2024 11: 52am Chief Complaint Admit Date RESIDENTIAL LAB WORK May 27 5:00am LAB WORK June 03, 2024 5: 00am PAD June 05, 2024 2: 56pm LAB WORK June 06, 2024 5: 10am LABWORK June 07, 2024 5 :00am LABWORK June 21, 2024 1 1:00pm RESIDENTIAL LAB WORK June 25, 2024 5:00am weight [...] July 31 3:42pm Acute upper gastrointestinal bleeding [facility] 2024 3:42pm Anemia July 31, 2024 [...] 14, 2024 11:52am Chief Complaint Admit Date RESIDENTIAL LAB WORK May 27 5:00am LAB WORK June 03, 2024 5: 00am PAD June 05, 2024 2: 56pm LAB WORK June 06, 2024 5: 10am LABWORK June 07, 2024 5 :00am LABWORK June 21, 2024 1 1:00pm RESIDENTIAL LAB WORK June 25, 2024 5:00am weight [...] GI BLEED August 13, 2024 10: 13am RESIDENTIAL LAB WORK August 14, 2024 5 :00am ANASARCA, SOB August 14, 2024 11: 52am ANASARCA, SOB August 14, 2024 12: 21pm ANASARCA, SOB August 15, 2024 8:1 1am BILATERAL EFFUSION August 15, 2024 9:0 0am ANASARCA, SOB August 15, 2024 9:0 9am ANASARCA, SOB August 16, 2024 3:2 2pm ANASARCA, SOB August 17, 2024 9:1 6am RESIDENTIAL LAB WORK August 26, 2024 4 :00am 2 units PRBC August 31, 2024 9:01 am Chief Complaint Admit Date RESIDENTIAL LAB WORK May 27 5:00am LAB WORK June 03, 2024 5: 00am PAD June 05, 2024 2: 56pm LAB WORK June 06, 2024 5: 10am LABWORK June 07, 2024 5 :00am LABWORK June 21, 2024 1 1:00pm RESIDENTIAL LAB WORK June 25, 2024 5:00am weight [...] GI BLEED August 13, 2024 10: 13am RESIDENTIAL LAB WORK August 14, 2024 5 :00am ANASARCA, SOB August 14, 2024 11: 52am ANASARCA, SOB August 14, 2024 12: 21pm ANASARCA, SOB August 15, 2024 8:1 1am BILATERAL EFFUSION August 15, 2024 9:0 0am ANASARCA, SOB August 15, 2024 9:0 9am ANASARCA, SOB August 16, 2024 3:2 2pm ANASARCA, SOB August 17, 2024 9:1 6am RESIDENTIAL LAB WORK August 22, 2024 5 :00am RESIDENTIAL LAB WORK August 26, 2024 4 :00am LABWORK August 28, 2024 5:00 am 2 units PRBC August 31, 2024 9:01 am Chief Complaint Admit Date RESIDENTIAL LAB WORK May 27 5:00am LAB WORK June 03, 2024 5: 00am PAD June 05, 2024 2: 56pm LAB WORK June 06, 2024 5: 10am LABWORK June 07, 2024 5 :00am LABWORK June 21, 2024 1 1:00pm RESIDENTIAL LAB WORK June 25, 2024 5:00am weight [...] GI BLEED August 13, 2024 10: 13am RESIDENTIAL LAB WORK August 14, 2024 5 :00am ANASARCA, SOB August 14, 2024 11: 52am ANASARCA, SOB August 14, 2024 12: 21pm ANASARCA, SOB August 15, 2024 8:1 1am BILATERAL EFFUSION August 15, 2024 9:0 0am ANASARCA, SOB August 15, 2024 9:0 9am ANASARCA, SOB August 16, 2024 3:2 2pm ANASARCA, SOB August 17, 2024 9:1 6am RESIDENTIAL LAB WORK August 22, 2024 5 :00am RESIDENTIAL LAB WORK August 26, 2024 4 :00am LABWORK August 28, 2024 5:00 am 2 units PRBC August 31, 2024 9:01 am sob September 15, 2024 4:2 2am Chief Complaint Admit Date LABWORK June 21, 2024 1 1:00pm RESIDENTIAL LAB WORK June 25, 2024 5:00am weight [...] GI BLEED August 13, 2024 10: 13am RESIDENTIAL LAB WORK August 14, 2024 5 :00am [...] ANASARCA, SOB August 17, 2024 9:1 6am RESIDENTIAL LAB WORK August 22, 2024 5 :00am RESIDENTIAL LAB WORK August 26, 2024 4 :00am LABWORK August 28, 2024 5:00 am 2 units PRBC August 31, 2024 9:01 am LABWORK September 02, 2024 5:00 am sob September 15, 2024 4:2 2am LABWORK September 18, 2024 5:0 0am Reason for Visit Admit Date End stage renal disease July 23 5:23pm Chronic anemia July 23, 2024 5:23pm Leukocytosis July 23, 2024 5:23pm Open abdominal wall wound July 23, 2024 5:23pm Unspecified severe protein-calorie malnu trition July 23, 2024 5:23pm ABLA (acute blood loss anemia) July 3:42pm Abnormal CT of the abdomen July 31 3:42pm Acute upper gastrointestinal bleeding [facility] 2024 3:42pm Anemia July 31, 2024 [...] Date LABWORK June 21, 2024 1 1:00pm RESIDENTIAL LAB WORK June 25, 2024 5:00am weight [...] GI BLEED August 13, 2024 10: 13am RESIDENTIAL LAB WORK August 14, 2024 5 :00am [...] ANASARCA, SOB August 17, 2024 9:1 6am RESIDENTIAL LAB WORK August 22, 2024 5 :00am RESIDENTIAL LAB WORK August 26, 2024 4 :00am LABWORK August 28, 2024 5:00 am 2 units PRBC August 31, 2024 9:01 am LABWORK September 02, 2024 5:00 am sob September 15, 2024 4:2 2am RESIDENTIAL LAB WORK September 16, 2024 7 :45am LABWORK September 18, 2024 5:0 0am Additional Source Comments INFORMATION SOURCE (unrecogn ized section and content) DATE CREATED AUTHOR 11/16/2017 [facility] DATE CREATED AUTHOR AUTHOR'S ORGANIZ ATION 12/20/2019 [facility] DATE CREATED AUTHOR AUTHOR'S ORGANIZ ATION 10/26/2023 [facility] DATE CREATED AUTHOR AUTHOR'S ORGANIZ ATION 11/02/2023 [facility] DATE CREATED AUTHOR AUTHOR'S ORGANIZ ATION 12/25/2023 [facility] DATE CREATED AUTHOR AUTHOR'S ORGANIZ ATION 01/05/2024 [facility] DATE CREATED AUTHOR AUTHOR'S ORGANIZ ATION 05/15/2024 [facility] DATE CREATED AUTHOR AUTHOR'S ORGANIZ ATION 06/27/2024 [facility] DATE CREATED AUTHOR AUTHOR'S ORGANIZ ATION 07/21/2024 [facility] DATE CREATED AUTHOR AUTHOR'S ORGANIZ ATION 11/14/[address] [facility] Reason for Visit (unrecogniz ed section and content) Reason Comments Follow-up 6 months Reason Comments Abdominal Pain RLQ Dysuria Cold Sweats Reason Comments Abdominal Pain Reason Comments Post-op monocyrl and steri s trips Reason Comments Physical Therapy Status Reason Specialty Diagnoses / Procedures Referred By Contact Referred To Contact Authorized Physical Therapy / Rehabilitation Diagnoses Hip pain, bilateral Bambi Huynh MD [address] [address] [facility] [address] [place] [address] Reason Comments Cough congestion, runny no se, symptoms x 1 week Reason Comments Follow-up 6 months Reason Comments Follow-up Reason Comments Hypothyroidism needs medication ref ills/ hasn't been seen since 2019 Reason Comments Plantar Warts Possible wart right heel. She will dig out then they will grow back. Cyst Possible cyst left a h x 1 year. Bumps are hard. Reason Comments Follow-up Follow up for wart s x on right heel. Pt states she also had some lab work done for tingling in feet Reason Comments Arm Swelling Specialty Diagnoses / Procedures Referred By Joanne mercedes Referred To Contact Diagnoses Acute deep vein thrombosis (DVT) of axillary vein of left upper extremity (HCC) Chest pain, unspecified type Referral ID Status Reason Start Date Expiration Date Visits Re quested Visits Authorized [id number] 1 1 Reason Comments Medication Refill Reason Comments DVT New consult from Dr. Quispe Specialty Diagnoses / Procedures Referred By Joanne mercedes Referred To Contact Hematology and Oncology Diagnoses Acute deep vein thrombosis (DVT) of axillary vein of left upper extremity (HCC) Ying Quispe, [address] [place] [address] Lita Gu MD [address] [place] [address] Referral ID Status Reason Start Date Expiration Date Visits Re quested Visits Authorized [id number] Closed 06/27/2022 06/27/2023 1 1 Reason Onset [...] Leiden mutation (HCC) Lita Gu MD [address] [place] [address] Caruso [address] [place] [id number] Referral ID Status Reason Start Date Expiration Date Visits Requested Visits Authorized [id number] Pending Review Specialty Services Required/Pat ient's Best [...] numbness. Specialty Diagnoses / Procedures Referred By Joanne mercedes Referred To Contact Neurosurgery Diagnoses Lumbosacral radiculopathy Yfn Puckett Jr., DPM [address] [place] [address] Nenita Khan MD [address] [address] Referral ID Status Reason Start Date Expiration Date Visits Re quested Visits Authorized [id number] Closed 08/01/2023 07/31/2024 1 1 Reason Comments Follow-up S/p EVAR, right perry l stenting Specialty Diagnoses / Procedures Referred By Joanne mercedes Referred To Contact Referral ID Status Reason Start Date Expiration Date Visits Re quested Visits Authorized [id number] 1 1 Specialty Diagnoses / Procedures Referred By Contact Referred To Contact Anticoagulation Monitoring Diagnoses History of deep venous thrombosis Reactive lymphadenopathy Factor V Leiden mutation (HCC) Lita Gu MD [address] [place] [address] [facility] [address] [place] [address] Referral ID Status Reason Start Date Expiration Date V isits Requested Visits Authorized [id number] Pending Review 12/12/2022 02/26/2024 999 999 Reason Comments Follow-up 1 month hospital fol low up s/p Emergent EVAR with renal stenting with Dr. Guerra Reason Onset Date Comments Medication Refill 11/20/2023 Reason Comments Wound Check Specialty Diagnoses / Procedures Referred By Contac t Referred To Contact Wound Care Diagnoses PVD (peripheral vascular disease) (HCC) Tylor Kruger MD [address] [facility] [address] [place] [address] Op Wound Care [address] [place] [address] Referral ID Status Reason Start Date Expiration Date V isits Requested Visits Authorized [id number] Closed Specialty Services Required/Romi ent's Best Interest 11/21/2023 11/20/2024 1 1 Reason Onset Date Comments Medication Refill 12/06/2023 Referral ID Status Reason Start Date Expiration Date V isits Requested Visits Authorized [id number] Pending Review 12/12/2022 04/10/2025 999 999 Reason [...] Latricia Garcia RN - 09/14/2018 8:40 PM Latricia Pruett RN - 09/14/2018 8:39 PM Adilene Cordoba RN - 09/14/2018 8:14 PM Adilene Cordoba RN - 09/14/2018 8:04 PM EDT ED Notes (unrecognized secti on and content) PT'S PERSONAL BELONGINGS ARE IN A BAG AND WITH PT. EMS HAS ARRIVED AND PT HAS BEEN UPDATED. DR BARLOW AT BEDSIDE TO TALK TO THE PT. Karolyn BECERRA, called for transport to [facility], ETA 25 minutes. Gloria, Transfer center, called to advise that alternate transportation has been arranged. Pt updated on status of EMS arrival. JACKIE Castro, called with 90 minute ETA for [facility]. This nurse to try to turnover to [facility] ED PROVIDER NOTE [facility] EMERGENCY DEPART[facility] NAME: Scott Obregon AGE: 58 y.o. : 1960 VISIT DATE: 09/14/2018 CSN: [id number] PCP: Bambi Huynh MD Chief Complaint Patient [...] Patient has been accepted by surgery at [facility]. Patient will be transferred in stable condition. [...] Scott K Mago to be transferred to [facility] Follow-up Information Follow-up information has not [...] PT to OR PT from transfer from [place] for surgery Bed: 01 Expected date: 09/14/18 Expected time: 9:22 PM Means of arrival: Comments: TRANSFER documented in this encounter Татьяна Jenkins MD - 09/14/2018 10:26 PM EDT H&P Notes (unrecognized sect ion and content) [facility] SURGICAL HISTORY & PHYSICAL/CONSULTATION NOTE [...] year old female who was transferred from [facility] for acute appendicitis. Her primary complaint is [...] reported her symptoms to her PCP, Dr. Leedsma, who ordered lab work and a CT scan. The patient was then referred to the emergency department. 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 Judd Galvin , DO Admit Provider Active Star t: July 24, 2024 Dr. Judd Galvin , DO Other Provider Active Star t: July 24, 2024 Dr. Angie Torres MD Other Provider Active Start: July 24, 2024 Dr. Remedios Kessler , DO Attending Provider Active S tart: July 24, 2024 Dr. Remedios Kessler , [...] tart: July 25, 2024 Dr. Judd Galvin , Admit Provider Active Star t: July 25, [...] tart: July 28, 2024 Dr. Judd Galvin , Admit Provider Active Star t: July 28, 2024 Dr. Judd Galvin DO Other Provider Active Star t: July 28, 2024 Dr. Angie Torres MD Other Provider Active Start: July 28, 2024 Dr. Remedios Kessler DO Attending Provider [...] S tart: August 08, 2024 Dr. Kvng Wtakins DO Admit Provider Active Start: August 08, [...] Provider Active Star t: August 13, 2024 Industrial Property Appraiser Relationship Specialty Start Date End Date Bambi Huynh MD [address] [place] [address] [place] [address] PCP - PK Attributed Provider - [employer] 03/29/18 05/28/50 Ying Quispe DO [address] [place] [address] PCP - General Family Medicine 05/12/21 Industrial Property Appraiser Relationship Specialty Start Date End Date Ying Quispe DO [address] [place] [address] PCP - General Family Medicine 05/12/21 Industrial Property Appraiser Relationship Specialty Start Date End Date Ying Quispe, DO [address] [place] [address] PCP - General Family Medicine 05/12/21 Industrial Property Appraiser Relationship Specialty Start Date End Date Ying Quispe, DO [address] [place] [address] PCP - General Family Medicine 05/12/21 Industrial Property Appraiser Relationship Specialty Start Date End Date Ying Quispe, DO [address] [place] [address] PCP - General Family Medicine 05/12/21 Industrial Property Appraiser Relationship Specialty Start Date End Date Ying Quispe, DO [address] [place] [address] PCP - General Family Medicine 05/12/21 Industrial Property Appraiser Relationship Specialty Start Date End Date Ying Quispe, DO [address] [place] [address] PCP - General Family Medicine 05/12/21 Ying Quispe, DO [address] [place] [address] PCP - PK Attributed Provider - [facility] 05/29/21 05/28/99 Industrial Property Appraiser Relationship Specialty Start Date End Date Ying Quispe, DO [address] [place] [address] PCP - General Family Medicine 05/12/21 BrittaneyYing, DO [address] [place] [address] PCP - PK Attributed Provider - [facility] 05/29/21 05/28/99 Industrial Property Appraiser Relationship Specialty Start Date End Date Bambi Huynh MD PCP - General Internal Medicine 06/10/16 04/07/21 Makenzie Bajwa, REGISTERED NURSE CARDIOVASCULAR ICU [address] [place] [address] [address] [place] [address] PCP - General Nurse Practitioner 04/08/21 05/11/21 Ying Quispe, DO [address] [place] [address] PCP - General Family Medicine 05/12/21 Ying Quispe, DO [address] [place] [address] PCP - PK Attributed Provider - [employer] 03/29/18 08/25/21 Ying Quispe, DO [address] [place] [address] PCP - PK Attributed Provider - [facility] 05/29/21 05/28/99 Industrial Property Appraiser Relationship Specialty Start Date End Date Ying Quispe, DO [address] [place] [address] PCP - General Family Medicine 05/12/21 Ying Quispe, DO [address] [place] [address] PCP - PK Attributed Provider - [facility] 05/29/21 05/28/99 Codie Garcia, manager internet retails salesIndustrial Property Appraiser 06/13/22 06/13/22 Industrial Property Appraiser Relationship Specialty Start Date End Date Ying Quispe, DO [address] [place] [address] PCP - General Family Medicine 05/12/21 Ying Quispe, DO [address] [place] [address] PCP - PK Attributed Provider - [facility] 05/29/21 05/28/50 Industrial Property Appraiser Relationship Specialty Start Date End Date BrittaneyYing Zahra DO [address] [place], [place] [address] PCP - General Family Medicine 05/12/21 Ying Quispe DO [address] [place] [address] PCP - PK Attributed Provider - [facility] 05/29/21 05/28/50 Industrial Property Appraiser Relationship Specialty Start Date End Date Ying Quispe DO [address] [place] [address] PCP - General Family Medicine 05/12/21 Ying Quispe, [address] [place] [address] PCP - PK Attributed Provider - [facility] 05/29/21 05/28/50 Industrial Property Appraiser Relationship Specialty Start Date End Date Ying Quispe, [address] [place] [address] PCP - General Family Medicine 05/12/21 Ying Quispe DO [address] [place] [address] PCP - PK Attributed Provider - [facility] 05/29/21 05/28/50 Industrial Property Appraiser Relationship Specialty Start Date End Date Ying Quispe DO [address] [place] [address] PCP - General Family Medicine 05/12/21 Ying Quispe DO [address] [place] [address] PCP - PK Attributed Provider - [facility] 05/29/21 05/28/50 Industrial Property Appraiser Relationship Specialty Start Date End Date Ying Quispe DO [address] [place] [address] PCP - General Family Medicine 05/12/21 Ying Quispe DO [address] [place] [address] PCP - PK Attributed Provider - [facility] 05/29/21 05/28/50 Industrial Property Appraiser Relationship Specialty Start Date End Date Ying Quispe DO [address] [place] [address] PCP - General Family Medicine 05/12/21 Ying Quispe DO [address] [place] [address] PCP - PK Attributed Provider - [facility] 05/29/21 05/28/50 Industrial Property Appraiser Relationship Specialty Start Date End Date Ying Quispe DO [address] [place] [address] PCP - General Family Medicine 05/12/21 Ying Quispe DO [address] [place] [address] PCP - PK Attributed Provider - [facility] 05/29/21 05/28/50 Industrial Property Appraiser Relationship Specialty Start Date End Date Ying Quispe DO [address] [place] [address] PCP - General Family Medicine 05/12/21 Ying Quispe DO [address] [place] [address] PCP - PK Attributed Provider - [facility] 05/29/21 05/28/50 Industrial Property Appraiser Relationship Specialty Start Date End Date Ying Quispe DO [address] [place] [address] PCP - General Family Medicine 05/12/21 Ying Quispe DO [address] [place] [address] PCP - PK Attributed Provider - [facility] 05/29/21 05/28/50 Industrial Property Appraiser Relationship Specialty Start Date End Date Ying Quispe DO [address] [place] [address] PCP - General Family Medicine 05/12/21 Ying Quispe DO [address] [place] [address] PCP - PK Attributed Provider - [facility] 05/29/21 05/28/50 Industrial Property Appraiser Relationship Specialty Start Date End Date Ying Quispe DO [address] [place] [address] PCP - General Family Medicine 05/12/21 Ying Quispe DO [address] [place] [address] PCP - PK Attributed Provider - [facility] 05/29/21 05/28/50 Industrial Property Appraiser Relationship Specialty Start Date End Date Ying Quispe DO [address] [place] [address] PCP - General Family Medicine 05/12/21 Ying Quispe DO [address] [place] [address] PCP - PK Attributed Provider - [facility] 05/29/21 05/28/50 Industrial Property Appraiser Relationship Specialty Start Date End Date Ying Quispe DO [address] [place] [address] PCP - General Family Medicine 05/12/21 Ying Quispe DO [address] [place] [address] PCP - PK Attributed Provider - [facility] 05/29/21 05/28/50 Industrial Property Appraiser Relationship Specialty Start Date End Date Ying Quispe DO [address] [place] [address] PCP - General Family Medicine 05/12/21 Ying Quispe DO [address] [place] [address] PCP - PK Attributed Provider - [facility] 05/29/21 05/28/50 Industrial Property Appraiser Relationship Specialty Start Date End Date Ying Quispe DO [address] [place] [address] PCP - General Family Medicine 05/12/21 Ying Quispe DO [address] [place] [address] PCP - PK Attributed Provider - [facility] 05/29/21 05/28/50 Industrial Property Appraiser Relationship Specialty Start Date End Date Ying Quispe DO [address] [place] [address] PCP - General Family Medicine 05/12/21 Ying Quispe DO [address] [place] [address] PCP - PK Attributed Provider - [facility] 05/29/21 05/28/50 Lita Gu MD [address] [place] [address] Consulting Physician Hematology/Oncology 04/24/23 Industrial Property Appraiser Relationship Specialty Start Date End Date Ying Quispe DO [address] [place] [address] PCP - General Family Medicine 05/12/21 Ying Quispe DO [address] [place] [address] PCP - PK Attributed Provider - [facility] 05/29/21 05/28/50 Lita Gu MD [address] [place] [address] Consulting Physician Hematology/Oncology 04/24/23 Industrial Property Appraiser Relationship Specialty Start Date End Date Ying Quispe DO [address] [place] [address] PCP - General Family Medicine 05/12/21 Ying Quispe DO [address] [place] [address] PCP - PK Attributed Provider - [facility] 05/29/21 05/28/50 Lita Gu MD [address] [place] [address] Consulting Physician Hematology/Oncology 04/24/23 Industrial Property Appraiser Relationship Specialty Start Date End Date Ying Quispe DO [address] [place] [address] PCP - General Family Medicine 05/12/21 Ying Quispe DO [address] [place] [address] PCP - PK Attributed Provider - [facility] 05/29/21 05/28/50 Lita Gu MD [address] [place] [address] Consulting Physician Hematology/Oncology 04/24/23 Industrial Property Appraiser Relationship Specialty Start Date End Date Ying Quispe DO [address] [place] [address] PCP - General Family Medicine 05/12/21 Ying Quispe DO [address] [place] [address] PCP - PK Attributed Provider - [facility] 05/29/21 05/28/50 Lita Gu MD [address] [place] [address] Consulting Physician Hematology/Oncology 04/24/23 Industrial Property Appraiser Relationship Specialty Start Date End Date Ying Quispe DO [address] [place] [address] PCP - General Family Medicine 05/12/21 Ying Quispe DO [address] [place] [address] PCP - PK Attributed Provider - [facility] 05/29/21 05/28/50 Lita Gu MD [address] [place] [address] Consulting Physician Hematology/Oncology 04/24/23 Industrial Property Appraiser Relationship Specialty Start Date End Date Ying Quispe DO [address] [place] [address] PCP - General Family Medicine 05/12/21 Ying Quispe DO [address] [place] [address] PCP - PK Attributed Provider - [facility] 05/29/21 05/28/50 Lita Gu MD [address] [place] [address] Consulting Physician Hematology/Oncology 04/24/23 Industrial Property Appraiser Relationship Specialty Start Date End Date Ying Quispe DO [address] [place] [address] PCP - General Family Medicine 05/12/21 Ying Quispe DO [address] [place] [address] PCP - PK Attributed Provider - [facility] 05/29/21 05/28/50 Lita Gu MD [address] [place] [address] Consulting Physician Hematology/Oncology 04/24/23 Industrial Property Appraiser Relationship Specialty Start Date End Date Ying Quispe DO [address] [place] [address] PCP - General Family Medicine 05/12/21 Ying Quispe DO [address] [place] [address] PCP - PK Attributed Provider - [facility] 05/29/21 05/28/50 Lita Gu MD [address] [place] [address] Consulting Physician Hematology/Oncology 04/24/23 Industrial Property Appraiser Relationship Specialty Start Date End Date Ying Quispe DO [address] [place] [address] PCP - General Family Medicine 05/12/21 Ying Quispe DO [address] [place] [address] PCP - PK Attributed Provider - [facility] 05/29/21 05/28/50 Lita Gu MD [address] [place] [address] Consulting Physician Hematology/Oncology 04/24/23 Industrial Property Appraiser Relationship Specialty Start Date End Date Ying Quispe DO [address] [place] [address] PCP - General Family Medicine 05/12/21 Ying Quispe DO [address] [place] [address] PCP - PK Attributed Provider - [facility] 05/29/21 05/28/50 Lita Gu MD [address] [place] [address] Consulting Physician Hematology/Oncology 04/24/23 Industrial Property Appraiser Relationship Specialty Start Date End Date Ying Quispe DO [address] [place] [address] PCP - General Family Medicine 05/12/21 Ying Quispe DO [address] [place] [address] PCP - PK Attributed Provider - [facility] 05/29/21 05/28/50 Lita Gu MD [address] [place] [address] Consulting Physician Hematology/Oncology 04/24/23 Industrial Property Appraiser Relationship Specialty Start Date End Date Ying Quispe DO [address] [place] [address] PCP - General Family Medicine 05/12/21 Ying Quispe DO [address] [place] [address] PCP - PK Attributed Provider - [facility] 05/29/21 05/28/50 Lita Gu MD [address] [place] [address] Consulting Physician Hematology/Oncology 04/24/23 Industrial Property Appraiser Relationship Specialty Start Date End Date Ying Quispe DO [address] [place] [address] PCP - General Family Medicine 05/12/21 Ying Quispe DO [address] [place] [address] PCP - PK Attributed Provider - [facility] 05/29/21 05/28/50 Lita Gu MD [address] [place] [address] Consulting Physician Hematology/Oncology 04/24/23 Industrial Property Appraiser Relationship Specialty Start Date End Date Ying Quispe DO [address] [place] [address] PCP - General Family Medicine 05/12/21 Ying Quispe DO [address] [place] [address] PCP - PK Attributed Provider - [facility] 05/29/21 05/28/50 Lita Gu MD [address] [place] [address] Consulting Physician Hematology/Oncology 04/24/23 Industrial Property Appraiser Relationship Specialty Start Date End Date Ying Quispe DO [address] [place] [address] PCP - General Family Medicine 05/12/21 Ying Quispe DO [address] [place] [address] PCP - PK Attributed Provider - [facility] 05/29/21 05/28/50 Lita Gu MD [address] [place] [address] Consulting Physician Hematology/Oncology 04/24/23 Industrial Property Appraiser Relationship Specialty Start Date End Date Ying Quispe DO [address] [place] [address] PCP - General Family Medicine 05/12/21 Ying Quispe DO [address] [place] [address] PCP - PK Attributed Provider - [facility] 05/29/21 05/28/50 Lita Gu MD [address] [place] [address] Consulting Physician Hematology/Oncology 04/24/23 Industrial Property Appraiser Relationship Specialty Start Date End Date Ying Quispe DO [address] [place] [address] PCP - General Family Medicine 05/12/21 Ying Quispe DO [address] [place] [address] PCP - PK Attributed Provider - [facility] 05/29/21 05/28/50 Lita Gu MD [address] [place] [address] Consulting Physician Hematology/Oncology 04/24/23 Industrial Property Appraiser Relationship Specialty Start Date End Date Ying Quispe DO [address] [place] [address] PCP - General Family Medicine 05/12/21 Ying Quispe DO [address] [place] [address] PCP - PK Attributed Provider - [facility] 05/29/21 05/28/50 Lita Gu MD [address] [place] [address] Consulting Physician Hematology/Oncology 04/24/23 Industrial Property Appraiser Relationship Specialty Start Date End Date Ying Qusipe DO [address] [place] [address] PCP - General Family Medicine 05/12/21 Ying Quispe DO [address] [place] [address] PCP - PK Attributed Provider - [facility] 05/29/21 05/28/50 Lita Gu MD [address] [place] [address] Consulting Physician Hematology/Oncology 04/24/23 Industrial Property Appraiser Relationship Specialty Start Date End Date Ying Quispe DO [address] [place] [address] PCP - General Family Medicine 05/12/21 Ying Quispe DO [address] [place] [address] PCP - PK Attributed Provider - [facility] 05/29/21 05/28/50 Lita Gu MD [address] [place] [address] Consulting Physician Hematology/Oncology 04/24/23 Industrial Property Appraiser Relationship Specialty Start Date End Date Ying Quispe DO [address] [place] [address] PCP - General Family Medicine 05/12/21 Ying Quispe DO [address] [place] [address] PCP - PK Attributed Provider - [facility] 05/29/21 05/28/50 Lita Gu MD [address] [place] [address] Consulting Physician Hematology/Oncology 04/24/23 Industrial Property Appraiser Relationship Specialty Start Date End Date Ying Quispe DO [address] [place] [address] PCP - General Family Medicine 05/12/21 Ying Quispe DO [address] [place] [address] PCP - PK Attributed Provider - [facility] 05/29/21 05/28/50 Lita Gu MD [address] [place] [address] Consulting Physician Hematology/Oncology 04/24/23 Industrial Property Appraiser Relationship Specialty Start Date End Date Ying Quispe DO [address] [place] [address] PCP - General Family Medicine 05/12/21 Ying Quispe DO [address] [place] [address] PCP - PK Attributed Provider - [facility] 05/29/21 05/28/50 Lita Gu MD [address] [place] [address] Consulting Physician Hematology/Oncology 04/24/23 Industrial Property Appraiser Relationship Specialty Start Date End Date Ying Quispe DO [address] [place] [address] PCP - General Family Medicine 05/12/21 Ying Quispe DO [address] [place] [address] PCP - PK Attributed Provider - [facility] 05/29/21 05/28/50 Lita Gu MD [address] [place] [address] Consulting Physician Hematology/Oncology 04/24/23 Industrial Property Appraiser Relationship Specialty Start Date End Date Ying Quispe DO [address] [place] [address] PCP - General Family Medicine 05/12/21 Ying Quispe DO [address] [place] [address] PCP - PK Attributed Provider - [facility] 05/29/21 05/28/50 Lita Gu MD [address] [place] [address] Consulting Physician Hematology/Oncology 04/24/23 Industrial Property Appraiser Relationship Specialty Start Date End Date Ying Quispe DO [address] [place] [address] PCP - General Family Medicine 05/12/21 Ying Quispe DO [address] [place] [address] PCP - PK Attributed Provider - [facility] 05/29/21 05/28/50 Lita Gu MD [address] [place] [address] Consulting Physician Hematology/Oncology 04/24/23 Industrial Property Appraiser Relationship Specialty Start Date End Date Ying Quispe DO [address] [place] [address] PCP - General Family Medicine 05/12/21 Ying Quispe DO [address] [place] [address] PCP - PK Attributed Provider - [facility] 05/29/21 05/28/50 Lita Gu MD [address] [place] [address] Consulting Physician Hematology/Oncology 04/24/23 Industrial Property Appraiser Relationship Specialty Start Date End Date Ying Quispe DO [address] [place] [address] PCP - General Family Medicine 05/12/21 Ying Quispe DO [address] [place] [address] PCP - PK Attributed Provider - [facility] 05/29/21 05/28/50 Lita Gu MD [address] [place] [address] Consulting Physician Hematology/Oncology 04/24/23 Industrial Property Appraiser Relationship Specialty Start Date End Date Ying Quispe DO [address] [place] [address] PCP - General Family Medicine 05/12/21 Ying Quispe DO [address] [place] [address] PCP - PK Attributed Provider - [facility] 05/29/21 05/28/50 Lita Gu MD [address] [place] [address] Consulting Physician Hematology/Oncology 04/24/23 Industrial Property Appraiser Relationship Specialty Start Date End Date Ying Quispe DO [address] [place] [address] PCP - General Family Medicine 05/12/21 Ying Quispe DO [address] [place] [address] PCP - PK Attributed Provider - [facility] 05/29/21 05/28/50 Lita Gu MD [address] [place] [address] Consulting Physician Hematology/Oncology 04/24/23 Industrial Property Appraiser Relationship Specialty Start Date End Date Ying Quispe DO [address] [place] [address] PCP - General Family Medicine 05/12/21 Ying Quispe DO [address] [place] [address] PCP - PK Attributed Provider - [facility] 05/29/21 05/28/50 Lita Gu MD [address] [place] [address] Consulting Physician Hematology/Oncology 04/24/23 Industrial Property Appraiser Relationship Specialty Start Date End Date Ying Quispe DO [address] [place] [address] PCP - General Family Medicine 05/12/21 Ying Quispe DO [address] [place] [address] PCP - PK Attributed Provider - [facility] 05/29/21 05/28/50 Lita Gu MD [address] [place] [address] Consulting Physician Hematology/Oncology 04/24/23 Yisel Paiz MD [address] [place] [address] Consulting Physician Nephrology 12/27/23 Industrial Property Appraiser Relationship Specialty Start Date End Date Ying Quispe DO [address] [place] [address] PCP - General Family Medicine 05/12/21 Ying Quispe DO [address] [place] [address] PCP - KP Attributed Provider - [facility] 05/29/21 05/28/50 Lita Gu MD [address] [place] [address] Consulting Physician Hematology/Oncology 04/24/23 Yisel Paiz MD [address] [place] [address] Consulting Physician Nephrology 12/27/23 Industrial Property Appraiser Relationship Specialty Start Date End Date Ying Quispe DO [address] [place] [address] PCP - General Family Medicine 05/12/21 Ying Quispe DO [address] [place] [address] PCP - PK Attributed Provider - [facility] 05/29/21 05/28/50 Lita Gu MD [address] [place] [address] Consulting Physician Hematology/Oncology 04/24/23 Yisel Paiz MD [address] [place] [address] Consulting Physician Nephrology 12/27/23 Industrial Property Appraiser Relationship Specialty Start Date End Date Ying Quispe DO [address] [place] [address] PCP - General Family Medicine 05/12/21 Ying Quispe DO [address] [place] [address] PCP - PK Attributed Provider - [facility] 05/29/21 05/28/50 Lita Gu MD [address] [place] [address] Consulting Physician Hematology/Oncology 04/24/23 Yisel Paiz MD [address] [place] [address] Consulting Physician Nephrology 12/27/23 Industrial Property Appraiser Relationship Specialty Start Date End Date Ying Quispe DO [address] [place] [address] PCP - General Family Medicine 05/12/21 Ying Quispe DO [address] [place] [address] PCP - PK Attributed Provider - [facility] 05/29/21 05/28/50 Lita Gu MD [address] [place] [address] Consulting Physician Hematology/Oncology 04/24/23 Yisel Paiz MD [address] [place] [address] Consulting Physician Nephrology 12/27/23 Industrial Property Appraiser Relationship Specialty Start Date End Date Ying Quispe DO [address] [place] [address] PCP - General Family Medicine 05/12/21 Ying Quispe DO [address] [place] [address] PCP - PK Attributed Provider - [facility] 05/29/21 05/28/50 Lita Gu MD [address] [place] [address] Consulting Physician Hematology/Oncology 04/24/23 Yisel Paiz MD [address] [place] [address] Consulting Physician Nephrology 12/27/23 Industrial Property Appraiser Relationship Specialty Start Date End Date Ying Quispe DO [address] [place] [address] PCP - General Family Medicine 05/12/21 Ying Quispe DO [address] [place] [address] PCP - PK Attributed Provider - [facility] 05/29/21 05/28/50 Lita Gu MD [address] [place] [address] Consulting Physician Hematology/Oncology 04/24/23 Yisel Paiz MD [address] [place] [address] Consulting Physician Nephrology 12/27/23 Industrial Property Appraiser Relationship Specialty Start Date End Date Ying Quispe DO [address] [place] [address] PCP - General Family Medicine 05/12/21 Ying Quispe DO [address] [place] [address] PCP - PK Attributed Provider - [facility] 05/29/21 05/28/50 Lita Gu MD [address] [place] [address] Consulting Physician Hematology/Oncology 04/24/23 Yisel Paiz MD [address] [place] [address] Consulting Physician Nephrology 12/27/23 Industrial Property Appraiser Relationship Specialty Start Date End Date Ying Quispe DO [address] [place] [address] PCP - General Family Medicine 05/12/21 Ying Quispe DO [address] [place] [address] PCP - PK Attributed Provider - [facility] 05/29/21 05/28/50 Lita Gu MD [address] [place] [address] Consulting Physician Hematology/Oncology 04/24/23 Yisel Paiz MD [address] [place] [address] Consulting Physician Nephrology 12/27/23 Industrial Property Appraiser Relationship Specialty Start Date End Date Ying Quispe DO [address] [place] [address] PCP - General Family Medicine 05/12/21 Ying Quispe DO [address] [place] [address] PCP - PK Attributed Provider - [facility] 05/29/21 05/28/50 Lita Gu MD [address] [facility] [place] [address] Consulting Physician Hematology/Oncology 04/24/23 Yisel Paiz MD [address] [place] [address] Consulting Physician Nephrology 12/27/23 Industrial Property Appraiser Relationship Specialty Start Date End Date Ying Quispe DO [address] [place] [address] PCP - General Family Medicine 05/12/21 Ying Quispe DO [address] [place] [address] PCP - PK Attributed Provider - [facility] 05/29/21 05/28/50 Lita Gu MD [address] [place] [address] Consulting Physician Hematology/Oncology 04/24/23 Yisel Paiz MD [address] [place] [address] Consulting Physician Nephrology 12/27/23 Industrial Property Appraiser Relationship Specialty Start Date End Date Ying Quispe DO [address] [place] [address] PCP - General Family Medicine 05/12/21 Ying Quispe DO [address] [place] [address] PCP - PK Attributed Provider - [facility] 05/29/21 05/28/50 Lita Gu MD [address] [place] [address] Consulting Physician Hematology/Oncology 04/24/23 Yisel Paiz MD [address] [place] [address] Consulting Physician Nephrology 12/27/23 Industrial Property Appraiser Relationship Specialty Start Date End Date Ying Quispe DO [address] [place] [address] PCP - General Family Medicine 05/12/21 Ying Quispe DO [address] [place] [address] PCP - PK Attributed Provider - [facility] 05/29/21 05/28/50 Lita Gu MD [address] [place] [address] Consulting Physician Hematology/Oncology 04/24/23 Yisel Paiz MD [address] [place] [address] Consulting Physician Nephrology 12/27/23 Industrial Property Appraiser Relationship Specialty Start Date End Date Ying Quispe DO [address] [place] [address] PCP - General Family Medicine 05/12/21 Ying Quispe DO [address] [place] [address] PCP - PK Attributed Provider - [facility] 05/29/21 05/28/50 Lita Gu MD [address] [place] [address] Consulting Physician Hematology/Oncology 04/24/23 Yisel Paiz MD [address] [place] [address] Consulting Physician Nephrology 12/27/23 Industrial Property Appraiser Relationship Specialty Start Date End Date Ying Quispe DO [address] [place] [address] PCP - General Family Medicine 05/12/21 Ying Quispe DO [address] [place] [address] PCP - PK Attributed Provider - [facility] 05/29/21 05/28/50 Lita Gu MD [address] [place] [address] Consulting Physician Hematology/Oncology 04/24/23 Yisel Paiz MD [address] [place] [address] Consulting Physician Nephrology 12/27/23 Industrial Property Appraiser Relationship Specialty Start Date End Date Ying Quispe DO [address] [place] [address] PCP - General Family Medicine 05/12/21 Ying Quispe DO [address] [place] [address] PCP - PK Attributed Provider - [facility] 05/29/21 05/28/50 Lita Gu MD [address] [place] [address] Consulting Physician Hematology/Oncology 04/24/23 Yisel Paiz MD [address] [place] [address] Consulting Physician Nephrology 12/27/23 Codie Garcia, manager internet retails salesIndustrial Property Appraiser 07/02/24 Industrial Property Appraiser Relationship Specialty Start Date End Date Ying Quispe DO [address] [place] [address] PCP - General Family Medicine 05/12/21 Ying Quispe [place] [address] [place] [address] PCP - PK Attributed Provider - [facility] 05/29/21 05/28/50 Lita Gu MD [address] [place] [address] Consulting Physician Hematology/Oncology 04/24/23 Yisel Paiz MD [address] [place] [address] Consulting Physician Nephrology 12/27/23 Codie Garcia, manager internet retails salesIndustrial Property Appraiser 07/02/24 07/03/24 Industrial Property Appraiser Relationship Specialty Start Date End Date Ying Quispe DO [address] [place] [address] PCP - General Family Medicine 05/12/21 Ying Quispe DO [address] [place] [address] PCP - [facility] Provider - [facility] 05/29/21 05/28/50 Lita Gu MD [address] [place] [address] Consulting Physician Hematology/Oncology 04/24/23 Yisel Paiz MD [address] [place] [address] Consulting Physician Nephrology 12/27/23 Industrial Property Appraiser Relationship Specialty Start Date End Date Ying Quispe DO [address] [place] [address] PCP - General Family Medicine 05/12/21 Ying Quispe DO [address] [place] [address] PCP - PK Attributed Provider - [facility] 05/29/21 05/28/50 Lita Gu [place] [address] Consulting Physician Hematology/Oncology 04/24/23 Yisel Paiz MD [address] [place] [address] Consulting Physician Nephrology 12/27/23 Team Status: Inactive Member Role Status Dates Dr. Ethan Rodriguez MD Primary Care Provider Active Start: April 17, 2024 End: April 17, 2024 Ethan RNEE Attending Provider Active Start : April 17, [...] daily, First dose (after last modification) on Mon06/18/22 at 0800, Indication: DVT/PE, How long has [...] taken today) 0942 (Given - Provider: Jessie Cano, JACKIE) NIFEdipine 24 hr tablet 30 mg 30 mg, Oral, Daily, First dose on Mon06/10/22 at 1600 1608 (Given - Provider: Svetlana Monaco RN) 0942 (Given - Provider: Jessie Cano, JACKIE) sodium chloride (PF) (NS) flush 5 mL(Linked [...] at 1238 2237 (Given - Provider: Stacy Cano RN) heparin bolus from bag 0-10,000 Units [...] 0623 (Bolus from Bag - Provider: Stacy Cano RN) ondansetron (ZOFRAN) injection 4 mg(Linked Group [...] BE BASED ON THE PRIMARY CLINICAL RECORDS. [facility] [employer] [facility] provides no warranty or guarantee of the accuracy or completeness of information in this document.
[2024-11-18 08:43] LABS: Absolute Lymphocyte Count 0.51 X10^3/uL (0.83-4.51); Absolute Neutrophil Count 5.5 X10^3/uL (2.0-7.7); Basophil# 0.02 X10^3/uL; Basophil% 0.3 % (0-1); Eosinophil# 0.29 X10^3/uL; Eosinophils% 4.1 % (0-5); Hematocrit 33.8 % (37-47); Hemoglobin 10.5 g/dL (12.0-15.0); Lymphocyte # 0.51 X10^3/ul (0.83-4.51); Lymphocyte % 7.3 % (19-41); Mean Corp Hgb Conc 31.1 g/dL (32-36); Mean Corpuscular Hgb 27.5 pg (27.0-32.0); Mean Corpuscular Volume 88.5 fL (81-99); Mean Platelet Vol. 11.8 fl (6.2-12.0); Monocyte# 0.66 X10^3/uL; Monocyte% 9.4 % (0-10); NRBC Flagged by Analyzer 0 % (0-5); Neutrophil % 78.3 % (47-70); POSITIVE DIFFERENTIAL YES; Platelet Count 179 K/mm3 (150-450); RBC Distribution Width CV 18.2 % (11.6-14.6); RBC Distribution Width SD 57.6 fl (35.1-43.9); Red Blood Count 3.82 M/mm3 (4.2-5.4)
[2024-11-18 10:32] LABS: Anion Gap 16 (5-15); BUN/Creat Ratio 45.1 RATIO (10-20); Calcium,Total 11.7 mg/dL (7.6-11.0); Carbon Dioxide 26.5 mmol/L (21.0-32.0); Chloride 92 mmol/L (98-108); Creatinine, Serum 2.35 mg/dL (0.70-1.20); EST Glomerular Filtration Rate 23 (>60); Glucose 112 mg/dL (70-99); Sodium Level 134 mmol/L (133-145)
[2024-11-18 11:17] LABS: BUN 106 mg/dL (4-19)
== END ==
LOC: OLS.SW 05:00
PROVIDERS: PCP Internal Medicine; Visit Provider Internal Medicine
DX: J44.9 Chronic obstructive pulmonary disease, unspecified (principal); J43.9 Emphysema, unspecified; N18.6 End stage renal disease; I70.262 Atherosclerosis of native arteries of extremities with gangrene, left leg
CPT/HCPCS: 36415; 80048; 85025; 86140

== ENCOUNTER → 2024-11-20 | Outpatient (CLI) | payer OTHER, SELFPAY | END | disposition home or self-care (01) | LOC: CVS 16:30 | PROVIDERS: PCP Internal Medicine; Visit Provider Podiatrist | DX: L97.522 Non-pressure 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 (principal); I73.89 Other specified peripheral vascular diseases | CPT/HCPCS: 87070; 87205 ==

== ENCOUNTER → 2024-11-26 | Outpatient (REF) | payer OTHER, SELFPAY ==
--- OUTSIDE RECORDS SUMMARY | 2024-11-26 04:52 | XMS RPT_ITS | CCD ---
Author Organization [facility] Care Team Providers Care Morphology Teacher Name Role Phone Bambi Huynh Unavailable Bambi [...] Ying Quispe DO Primary Care Provider [phone] Ying Quispe DO Primary Care Provider [phone] Ying Quispe DO Unavailable Bambi Huynh MD Primary Care Provide r Makenzie Bajwa CNP Primary Care Provider Ying Quispe DO Unavailable Jose MEJIA, Codie Alfred Unavailable Unav ailable Ying Quispe DO Unavailable Lita Gu MD Unavailable PHYSICIAN, PCP UNKNOWN Primary Care Unavailab LUCRECIA Forte~[phone] Attend ing Unavailable GRESSER, BRONWYN N Referring Unavailable PHYSICIAN, PCP UNKNOWN Primary Care Unavailab le GRESSER, BRONWYN N Attending Unavailable PHYSICIAN, PCP UNKNOWN Primary Care Unavailab le ALLEN FRANK, FRANK~[phone] [facility] Attending Unavailable PHYSICIAN, PCP UNKNOWN Primary Care Unavailab le ALLEN FRANK, FRANK~[phone] [facility] [place] Attending Unavailable GRESSER, BRONWYN N Attending Unavailable [...] PHYSICIAN, PCP UNKNOWN Primary Care Unavailab le MORGAN, DARETH E Attending Unavailable MORGAN, DARETH E Referring Unavailable GRESSER, BRONWYN N Attending Unavailable PHYSICIAN, PCP UNKNOWN Primary Care Unavailab le GRESSER, BRONWYN N Referring Unavailable GRESSER, BRONWYN N Attending Unavailable PHYSICIAN, PCP UNKNOWN Primary Care Unavailab le PHYSICIAN, PCP UNKNOWN Primary Care Unavailab le GRESSER, BRONWYN N Referring Unavailable GRESSER, BRONWYN N Attending Unavailable PHYSICIAN, PCP UNKNOWN Primary Care Unavailab le BRANDT CAGE~[id number] RAGHAVENDRA Attending Unavailable BRANDT CAGE~[id number] RAGHAVENDRA Referring Unavailable PHYSICIAN, PCP UNKNOWN Primary Care Unavailab le GRESSER, BRONWYN N Referring Unavailable GRESSER, BRONWYN N Attending Unavailable IZABELLA CARRILLO Attending Unavailable YING QUISPE Primary Care Unavailable YING QUISPE Referring Unavailable YING QUISPE Attending Unavailable YING QUISPE Primary Care Unavailable YING QUISPE Primary Care Unavailable YING QUISPE Admitting Unavailable YING QUISPE Referring Unavailable Izabel KENNEDY, Yisel Unavailable BRITTANEY, YING ZAHRA Referring Unavailable BRITTANEY, YING ZAHRA Primary Care Unavailable PHYSICIANS, [facility] Consulting Unav ailable BRITTANEY, YING ZAHRA Primary Care Unavailable CHIOMA OTTO Attending IZABELLA Chance Referring Unavailable ADRIANADEN Calhoun I. Admitting Unavailable PHYSICIANS, [facility] Consulting Un available JARON GABRIEL Consulting Homer mckeon BRITTANEY, YING DARLINGE Primary Care Unavailable PUGAR, EDENILSON LANTIGUA Attending Unavailable PUGAR, EDENILSON RHINA Referring Unavailable PUGAR, EDENILSON RHINA Admitting Unavailable BRITTANEY, YING ZAHRA Primary Care Unavailable PUGAR, EDENILSON RHINA Admitting Unavailable PUGAR, EDENILSON LANTIGUA Attending Unavailable BRITTANEY, YING ZAHRA Primary Care Unavailable JUDITH SANTANA Admitting Unavailab RANDY Rose Referring Unavail able BRENDA MILES Attending Unavailable PUGAR, EDENILSON LANTIGUA Consulting Unavailable CARLOTTA, GREGORY Consulting Unavailable BRITTANEY, YING DARLINGE Primary Care Unavailable GLENN JC Admitting Unavailable GLENN JC Attending Unavailable PUGAR, EDENILSON RHINA Consulting Unavailable PUGAR, EDENILSON RHINA Referring Unavailable ANNCAROLINAURAI, GREGORY Consulting Unavailable FLORESKELSEA WARD Consulting Unavaila ble [facility] Consul ting Unavailable PHYSICIANS, [facility] Consulting Unav ailable LATOSHA PARISI Consulting UnavailSRI Franks Consulting Unavailable RAY NOEL Consulting Unavaila ble BRITTANEY, YING DARLINGE Primary Care Unavailable BRITTANIE, LITA Referring UnavailMICHELLE Colindres Attending Unavailable BRITTANIE, LITA Admitting Unavailabl e BRITTANEY, YING ZAHRA Primary Care Unavailable BRITTANIE, LITA Admitting UnavailMICHELLE Colindres Attending Unavailable BRITTANIE, LITA Referring UnavailSARATH Todd Attending UnavailSARATH Todd Referring Unavailabl e BRITTANEY, YING ZAHRA Primary Care Unavailable DOMKA, ABIGAIL Attending Unavailable DOMKA, ABIGAIL Referring Unavailable BRITTANEY, YING ZAHRA Primary Care Unavailable SARATH REY Attending UnavailSARATH Todd Referring Unavailabl e BRITTANEY, YING ZAHRA Primary Care Unavailable DOMKA, ABIGAIL Admitting Unavailable DOMKA, ABIGAIL Attending Unavailable TYLOR KRUGER Referring Unavailab le [...] ZAHRA Primary Care Unavailable BRITTANIE, LITA Admitting UnavailMICHELLE Colindres Attending Unavailable BRITTANIE, LITA Referring Unavailabl e BRITTANIE, LITA Admitting Unavailabl e BRITTANEY, YING ZAHRA Primary Care Unavailable BRITTANIE, LITA Referring UnavailMICHELLE Colindres Attending Unavailable BRITTANIE, LITA Admitting Unavailabl e JUSTINE HODGES Attending Unavailable BRITTANEY, YING ZAHRA Primary Care Unavailable BRITTANIE, LITA Referring UnavailADILENE Yusuf Attending Unavailable BRITTANEY, YING ZAHRA Primary Care Unavailable BRITTANIE, LITA Admitting Unavailabl e BRITTANIE, LITA Referring Unavailabl e BRITTANEY, YING ZAHRA Primary Care Unavailable BRITTANIE, LITA Admitting Unavailabl e BRITTANIE, LITA Referring Unavailabl e MICHELLE LITTLEJOHN Attending Unavailable ADILENE BRYAN Attending Unavailable BRITTANEY, YING ZAHRA Primary Care Unavailable BRITTANIE, LITA Referring Unavailabl e BRITTANIE, LITA Admitting Unavailabl e LAVERN JRGanesh, YFN Attending Unavailable LAVERN JRGanesh, YFN Referring [...] Unavailable LAVERN TAYLOR, YFN Admitting Unavailable LAVERN JR., YFN Referring Unavailable BRITTANEY, YING ZAHRA Primary Care Unavailable BRITTANEY, YING ZAHRA Primary Care Unavailable CATE CONTRERAS Attending Unavailable BRITTANEY, YING ZAHRA Primary Care Unavailable SARATH REY Attending Unavailgodfrey Rodriguez MD, Dr. Long Primary Care Provider [phone] Ethan Mayorga Attending Provider Unavailable Ethan Mayorga Referring Provider Unavailable Melissa KENNEDY, Dr. Adams Attending Provider Melissa KENNEDY, Dr. dAams Referring Provider Jennifer KENNEDY, Dr. Long Referring Provider Magdiel KENNEDY, Dr. Jeffery Sandy Attending Provider Bryson KENNEDY, Dr. Pinto Attending Provider Unavaila Chioma Ceja Attending Provider Redd TRIM SETTER-C, Adilene Attending Provider Catarino KENNEDY, Dr. Chung Attending Provider Catarino KENNEDY, Dr. Chung Emergency Provider Lizett GARCIA, Dr. Mccullough Emergency Provider [phone] Judd Galvin DO Admit Provider Glenis GARCIA, Dr. Whaley Other Provider Melissa KENNEDY, Dr. Adams Other Provider Alyce KENNEDY, Dr. Mar Palm Attending Provider Dr. Remedios Kessler DO Other Provider Dr. Judd Galvin DO Attending Provider Dr. Nick Gallegos DO Attending Provider Alyce KENNEDY, Dr. Mar Palm Referring Provider Dr. Remedios Kessler DO Attending Provider Alyce KENNEDY, Dr. Mar Palm Other Provider Bennie KENNEDY, Dr. Zamora Referring Provider [phone] Bennie KENNEDY, Dr. Zamora Emergency Provider June GARCIA, Dr. Calderon Admit Provider [phone] Dr. Kvng Watkins DO Other Provider [phone] Gómez KENNEDY, Dr. Connor Attending Provider Dr. Kvng Watkins DO Attending Provider Dudley KENNEDY, Dr. Ivone Reese Attending Provider Gómez KENNEDY, Dr. Connor Other Provider Bryson KENNEDY, Dr. Pnito Primary Care Provider Racquel Rodrigez DO, Dr. Wagoner Emergency Provider Gómez KENNEDY, Dr. Connor Admit Provider Jennifer KENNEDY, Dr. Long Primary Care Provider [phone] Ethan Mayorga Attending Provider Unavailable Jennifer RENE, Ethan Referring Provider Unavailable Hunter OWEN-CSvetlana Attending Provider Yu KENNEDY, Dr. Abarca Attending Provider Jennifer KENNEDY, Dr. Long Primary Care Provider Jennifer KENNEDY, Dr. Long Referring Provider Bryson KENNEDY, Dr. Pinto Attending Provider Kenneth Massey MD, Dr. Pinto Referring Provider Kenneth Mendez MD, Dr. Carlton Attending Provider Andrea KENNEDY, Dr. Carlton Referring Provider Bryson KENNEDY, Dr. Pinto Referring Provider Kenneth Jain MD, Dr. Killian Emergency Provider Jennifer KENNEDY, Dr. Long Primary Care Provider [phone] Bryson KENNEDY, Dr. Pinto Attending Provider Kenneth Rodriguez MD, Dr. Long Referring Provider Ricardo KENNEDY, Dr. Saul Sandy Attending Provider Angelina OWEN-CMeghan Referring Provider Dr. Constantin Jain MD Attending Provider Jennifer KENNEDY, Dr. Long Primary Care Provider [phone] Dr. Remedios Kessler DO Attending Provider Bryson KENNEDY, Dr. Pinto Attending Provider Kenneth Gallegos DO, Dr. Romeor Attending Provider Dr. Judd Galvin DO Attending Provider Dr. Ying Contreras DPM Attending Provider Gudla, Millie Primary Care Unavailable Gudla, Millie Referring Unavailable Gudla, Millie Attending Unavailable Melissa, Jayaprakas Consulting Unavailable Gudla, Millie Primary Care Unavailable Gómez, Nikolas Admitting Unavailable Gómez, Nikolas Attending Unavailable Melissa, Jayaprakas Consulting Unavailable Gómez, Nikolas Admitting Unavailable Gómez, Nikolas Attending Unavailable Gudla, Millie Primary Care Unavailable Gómez, Nikolas Consulting Unavailable Melissa, Jayaprakas Consulting Unavailable Judd Galvin Admitting Unavailable Koram, Mra Arpita Attending Unavailable Rodriguez, Ethan Primary Care Unavailable Glenis, Judd Consulting Unavailable Remedios Kessler Consulting Unavailable Jeffery Veloz Attending Unavailable Rodriguez, Ethan Primary Care Unavailable Melissa, Jayaprakas Attending Unavailable Melissa, Jayaprakas Referring Unavailable Rodriguez, Ethan Primary Care Unavailable Gudla, Millie Primary Care Unavailable Constantin Jain Attending Unavailable Melissa, Jayaprakas Consulting Unavailable Nick Gallegos Attending Unavailable Kvng Watkins Admitting Unavailable Noah Avery Referring Unavailable Rodriguez, Ethan Primary Care Unavailable Kvng Watkins Consulting Unavailable Koram, Mar Arpita Consulting Unavailable Rodriguez, Ethan Primary Care Unavailable Rodriguez, Ethan Attending Unavailable Gudla EDGARD Millie Attending Unavailable Gudla OLS, Millie Referring Unavailable Gudla, Millie Primary Care Unavailable Gudla, Millie Primary Care Unavailable Gudla Millie RENE Attending Unavailable Rodriguez, Ethan Referring Unavailable Rodriguez, Ethan Attending Unavailable Rodriguez, Ethan Primary Care Unavailable Gudla OLSSadieMillie Attending Unavailable Rodriguez, Ethan Primary Care Unavailable Gudla OLSSadieMillie Attending Unavailable Rodriguez, Ethan Primary Care Unavailable Gudla OLS, Millie Attending Unavailable Rodriguez, Ethan Primary Care Unavailable Rodriguez, Ethan Primary Care Unavailable Sadia Phoenix Attending Unavailable Sheldon Toribio Attending Unavailable Rodriguez, Ethan Primary Care Unavailable Judd Galvin Attending Unavailable Judd Galvin Consulting Unavailable Gómez, Nikolas Attending Unavailable Gómez, Nikolas Consulting Unavailable Esmeam, Mar Arpita Attending Unavailable Ivone Buckner Attending Unavailable Rodriguez, Ethan Primary Care Unavailable Jeffery Veloz Attending Unavailable Rodriguez, Ethan Referring Unavailable Rodriguez, Ethan Primary Care Unavailable Chioma Vigil Attending Unavailable Rodriguez, Ethan Referring Unavailable Svetlana Harrison Attending Unavailable Gudla, Millie Primary Care Unavailable Gudla OLSSadieMillie Attending Unavailable Gudla, Millie Primary Care Unavailable [...] Care Unavailable Gudla EDGARD, Millie Attending Unavailable Gudla, Millie Primary Care Unavailable Gudla EDGARD, Millie Attending Unavailable Gudla Sadie RENEyothi Attending Unavailable Rodriguez, Ethan Primary Care Unavailable Gudla Sadie RENEyothi Attending Unavailable Gudla, Millie Primary Care Unavailable Gudla, Millie Primary Care Unavailable Gudla Sadie RENEyothi Attending Unavailable Rodriguez, Ethan Attending Unavailable Rodriguez, Ethan Primary Care Unavailable Gudla Sadie RENEyothi Attending Unavailable Rodriguez, Ethan Primary Care Unavailable Gudla OLS, Millie Attending Unavailable Rodriguez, Ethan Primary Care Unavailable Rodriguez, Ethan Referring Unavailable Rodriguez, Ethan Attending Unavailable Rodriguez, Ethan Primary Care Unavailable Rodriguez, Ethan Primary Care Unavailable Wilbert Cueto Attending Unavailable Gudla OLS, Millie Attending Unavailable Rodriguez, Ethan Primary Care Unavailable Rodriguez, Ethan Attending Unavailable Rodriguez, Ethan Primary Care Unavailable Gudla, Millie Primary Care Unavailable Gudla Sadie RENEyothi Attending Unavailable Gudla, Millie Primary Care Unavailable Ying Contreras Attending Unavailable Gudla OLS, Millie Attending Unavailable Rodriguez, Ethan Primary Care Unavailable Gudla, Millie Primary Care Unavailable Gudla OLS, Millie Referring Unavailable Gudla OLS, Millie Attending Unavailable Melissa, Jayaprakas Consulting Unavailable Koram, Mar Arpita Referring Unavailable Nick Gallegos Attending Unavailable Jennifer, Ethan Primary Care Unavailable Jopperi, Judd Admitting Unavailable Jopperi, Judd Consulting Unavailable Remedios Kessler Consulting Unavailable Remedios Kessler Attending Unavailable Kvng Watkins Attending Unavailable Tevin Nicholas Attending Unavailable Gudla, Millie Primary Care Unavailable ilBrandt melendez Referring Unavailable Gudla, Millie Primary Care Unavailable Brandt Mendez Attending Unavailable Adilene Rainey Attending Unavailable Rodriguez, Ethan Primary Care Unavailable Rodriguez, Ethan Referring Unavailable Korkaykay, Mar Arpita Attending Unavailable Koram, Mar Arpita Consulting Unavailable Judd Galvin Attending Unavailable Jennifer, Ethan Primary Care Unavailable RodriguezEthan gage Attending Unavailable Jennifer, Ethan Primary Care Unavailable Melissa, Jayaprakas Consulting Unavailable Kvng Watkins Admitting Unavailable Nikolas Magaña Attending Unavailable Noah Avery Referring Unavailable Ethan Rodriguez Primary Care Unavailable Kvng Watkins Consulting Unavailable Alyce, Mar Arpita Consulting Unavailable Glenis, Judd Consulting Unavailable Allergies Allergy Classification Reported Allergen(s) Allergy Type Date of Onset Reaction(s) Facility (20 sources) Iodine Compounds; Translations: [Unknown] Propensity to adverse reactions to drug 7 GI Intolerance, Rash [facility] Work Phone: (6 sources) Iodine And Iodide Containing Products Propensity to adverse reactions to drug 7 GI Intolerance [facility] (20 sources) Shellfish; Translations: [SHELLFISH DERIVED] Propensity to adverse reactions to drug 4 GI Intolerance [facility] (12 sources) Fish derivative; Translations: [FISH DERIVED] Propensity to adverse reactions to drug 4 GI Intolerance [facility] Work Phone: (10 sources) Iodine Drug Allergy 5 [facility] (1 source) Iodine Drug Allergy 5 [facility] Repository Medications Current Medications Medication Drug [...] in 24 hours. take [address] tablets [address] [facility] every six hours as needed for pain [...] / magnesium hydroxide 40 mg/ml oral suspension (19 sources) Start: 07-18-2024 amino acids/protein hydrolys (PRO-STAT [...] Active bisacodyl 10 mg rectal suppo sitory (19 sources) Stimulant Laxative Start: 07-31-2024 cetirizine hydrochloride 10 mg oral tablet (4 sources) Histamine-1 Receptor Antagonist Start: 09-15-2024 cholecalciferol 0.125 mg ora l capsule (10 sources) Vitamin D Start: 07-31-2024 cyclobenzaprine hydrochlorid [...] Active docusate sodium 100 mg oral tablet (13 sources) Start: 07-18-2024 Start: 09-15-2018 End: 10-15-2018 take 1 capsule by mouth once daily docusate sodium (COLACE) 100 MG capsule Take 1 (one) capsule (100 mg total) by mouth daily Stop taking medication when off pain medication or if having diarrhea . 30 capsule 0 09/15/2018 10/15/2018 Active docusate sodium 50 mg / sharon osides, mcfp 8.6 mg oral tablet (20 sources) Start: [...] 04/16/2022 Active dronabinol 2.5 mg oral capsule (10 sources) Cannabinoid Start: 07-18-2024 furosemide 80 mg oral tablet (4 sources) Loop Diuretic Start: 09-15-2024 glucagon (rdna) 1 mg injection (9 sources) Antihypoglycemic Agent glucagon 1 mg/mL SolR Inject into the shoulder, thigh, or buttocks as needed . Active glucose 0.4 mg/mg oral gel (19 sources) Start: 08-14-2024 dextrose 40 % ge l Take 15 (fifteen) g by mouth as needed . Active guaiFENesin 20 mg/ml oral so lution (19 sources) Start: 07-18-2024 take 200 mg by [...] (eight) hours . Active lactobacillus rhamnosus gg [id number] unt oral capsule (19 sources) Start: 07-18-2024 Start: 03-05-2024 take 1 capsule by mo [facility] once daily in the morning Lactobacillus [...] Active Start: 11-24-2023 [facility] metoprolol tartrate (LOPRESSOR) 25 MG tablet Take 1 (one) tablet (25 mg total) by mouth 2 (two) times a day . 180 tablet 3 11/24/2023 Active midodrine hydrochloride 10 m g oral tablet (19 sources) alpha-Adrenergic Agonist Start: 07-18-2024 Start: 03-20-2024 [...] by mouth every morning . 02/28/2024 Active mynppqom-knp-hidr fum-folic ac (Thera-M) 19 mg iron- 400 mcg Tab (9 sources) Start: 03-05-2024 take 1 tablet by mouth once daily in the morning jltzwdgg-pdn-jtxv fum-folic ac (Thera-M) 19 mg iron- 400 [...] Opioid Antagonist naloxone (NARC AN) 4 mg/actuation [place] Administer 1 (one) spray (4 mg total) into one nostril as needed (OPIOID OVERDOSE) Administer 1 spray into one nostril for known or suspected opioid overdose. If patient worsens or does not respond, may repeat in 2-3 minutes. . Active ondansetron 4 mg disintegrating oral tablet (20 sources) Serotonin-3 Receptor Antagonist Start: 07-18-2024 Start: [...] End: 07-18-2024 take 1 capsule by mo [facility] every six hours as needed for [...] pantoprazole 40 mg delayed release oral tablet (19 sources) Proton Pump Inhibitor Start: 08-13-2024 End: 08-17-2024 polyethylene glycol 3350 [id number] mg powder for oral solution (10 sources) Osmotic Laxative Start: 07-18-2024 sertraline 25 mg oral tablet (10 sources) Serotonin Reuptake Inhibitor Start: 07-18-2024 sodium phosphate, dibasic 59.3 mg/ml / sodium phosphate, monobasic 161 mg/ml enema (19 sources) Start: 08-14-2024 thiamine 100 mg oral [...] Drug Class(es) Dates Sig (Normalized) Sig (Original) [id number] 200 actuat albuterol 0.09 mg/actuat metered dose [...] at 0145 cephalexin 500 mg oral capsule (11 sources) Cephalosporin Antibacterial Start: 04-11-2024 End: 04-30-2024 [...] ml heparin sodium, porcine 5000 unt/ml cartridge (12 sources) Unfractionated Heparin, Anti-coagulant Start: 03-11-2024 End: [...] clinician) loperamide hydrochloride 2 mg oral capsule (10 sources) Opioid Agonist Start: 08-13-2024 End: 09-15-2024 [...] injection 2 mg naloxone (NARCAN) 4 mg/actuation [place] (6 sources) End: 11-23-2023 naloxone (NARCAN) 4 mg/actuation [place] Administer 1 (one) spray (4 mg total) into one nostril as needed (OPIOID OVERDOSE) Administer 1 spray into one nostril for known or suspected opioid overdose. If patient worsens or does not respond, may repeat in 2-3 minutes. . 11/23/2023 Discontinued naloxone (NARCAN ) 4 mg/actuation [place] Administer 1 (one) spray (4 mg total) [...] M/W/F 5mg on S/// RE-CHECK ON 12/20/23 On [...] See Admin Instructions l 2.5 mg on M/W/F. 5mg all other days. Recheck on 12/20/2023. . 11/30/2023 Active Start: 06-19-2023 warfarin (COUM RADHA) 5 MG tablet Indications: History of deep venous thrombosis [The details of the medication are not available because there are pending changes by a home health clinician.] 40 tablet 06/19/2023 Active Start: 12-12-2022 End: 06-19-2023 warfarin [...] infarction, unspecified; Translations: [Cerebral infarction, unspecified] Onset: 11-02-2023 Chronic Administrative/social admission (10 sources) Need for personal care assistance; Translations: [Need for assistance with personal care] 04-30-2024 Episodic Allergic reactions (1 source) Allergy to contrast media; Translations: [Radiographic dye allergy status] 12-06-2023 Episodic Aortic; peripheral; and visceral artery aneurysms (20 sources) Ruptured abdominal aortic aneurysm; Translations: [Ruptured abdominal aortic aneurysm (AAA)] Onset: 10-10-2023 10-10-2023 Chronic Cancer of brain and nervous system (1 source) Malignant neoplasm of brain, unspecified; Translations: [Malignant neoplasm of brain, unspecified] Onset: 09-13-2024 Chronic Chronic kidney disease (20 sources) End stage renal disease; Translations: [End stage renal 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] Onset: 03-12-2024 Chronic Chronic obstructive pulmonary disease and bronchiectasis (10 sources) Pulmonary emphysema; Translations: [Emphysema, unspecified] 04-30-2024 Chronic Chronic ulcer of skin (1 source) Non-pressure 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; Translations: [Non-pressure 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] Onset: 11-25-2024 Chronic Coagulation and hemorrhagic disorders (20 sources) Factor V Leiden mutation; Translations: [Activated protein C resistance] Onset: 10-09-2023 09-27-2022 Chronic Complications of surgical procedures or medical care (20 sources) Complication of surgical procedure; Translations: [Other complications of procedures, not elsewhere classified, initial encounter] Onset: 01-09-2024 01-05-2024 Episodic Congestive heart failure; nonhypertensive (1 source) Heart failure, unspecified; Translations: [Heart failure, unspecified] Onset: 10-11-2024 Chronic Deficiency and other anemia (5 sources) Anemia, unspecified; Translations: [Anemia, unspecified] Onset: 10-25-2023 Episodic Deficiency and other anemia (20 sources) Anemia; Translations: [Anemia, unspecified] 07-31-2024 Episodic Deficiency and other anemia (20 sources) Chronic anemia; Translations: [Anemia, unspecified] 07-26-2024 Episodic Diabetes mellitus without complication (1 source) Type 2 diabetes mellitus without complications; Translations: [Type 2 diabetes mellitus without complications] Onset: 09-13-2024 Chronic Diseases of white blood cells (20 sources) Leukocytosis; Translations: [Elevated white blood cell count, unspecified] Onset: 07-30-2024 08-06-2024 Chronic Disorders of lipid metabolism (20 sources) Hyperlipidemia; Translations: [Hyperlipidemia, unspecified] Onset: 06-29-2016 06-29-2016 Chronic Essential hypertension (20 sources) Hypertensive disorder; Translations: [Essential (primary) hypertension] Onset: 11-02-2023 11-02-2023 Chronic Fluid and electrolyte disorders (20 sources) Dehydration; Translations: [Dehydration] 07-23-2024 Episodic Gangrene (1 source) Atherosclerosis of [place] arteries of extremities with gangrene, left leg; Translations: [Atherosclerosis of [place] arteries of extremities with gangrene, left leg] Onset: 11-25-2024 Chronic Immunizations and screening for infectious disease (1 source) Contact with and (suspected) exposure to other viral communicable diseases; Translations: [Close Exposure to Covid-19 Virus] Episodic Lymphadenitis (3 sources) Lymphadenopathy; Translations: [Generalized enlarged lymph nodes] 09-27-2022 Episodic Malaise and fatigue (20 sources) Other malaise; Translations: [Asthenia] Onset: 10-21-2023 11-02-2023 Episodic Nonspecific chest pain (5 sources) Chest pain; Translations: [Chest pain, unspecified] Episodic Nutritional deficiencies (20 sources) Malnutrition (calorie); Translations: [Unspecified protein-calorie malnutrition] Onset: 09-24-2024 07-26-2024 Chronic Other aftercare (1 source) Surgical follow-up; Translations: [Encounter for surgical aftercare following surgery on the circulatory system] 11-02-2023 Episodic Other aftercare (4 sources) Encounter for surgical aftercare following surgery on the circulatory system; Translations: [Encounter for surgical aftercare following surgery on the circulatory system] Onset: 11-02-2023 Episodic Other aftercare (20 sources) Long-term current use of anticoagulant; Translations: [alf (current) use of anticoagulants] 07-31-2024 Episodic Other circulatory disease (11 sources) Raynaud's phenomenon; Translations: [Raynaud's syndrome without gangrene] Chronic Other circulatory disease (2 sources) Raynaud's syndrome without gangrene; Translations: [Raynaud's syndrome without gangrene] Onset: 10-24-2023 Chronic Other circulatory disease (20 sources) Raynaud's disease; Translations: [Raynaud's syndrome without gangrene] 08-10-2024 Chronic Other circulatory disease (1 source) Ischemic toe; Translations: [Other disorder of circulatory system] 11-22-2023 Episodic Other circulatory disease (10 sources) Retroperitoneal hematoma; Translations: [Retroperitoneal hematoma] 04-30-2024 [...] fascial fibromatosis] Episodic Other connective tissue disease (11 sources) Muscle weakness; Translations: [Muscle weakness (generalized)] 09-27-2022 Episodic Other diseases of kidney and ureters (1 source) Renal impairment; Translations: [Disorder of kidney and ureter, unspecified] 12-26-2023 Episodic Other endocrine disorders (20 sources) Hypoglycemia; Translations: [Hypoglycemia, unspecified] 08-08-2024 Chronic Other endocrine disorders (1 source) Hypoglycemia, unspecified; Translations: [Hypoglycemia, unspecified] Onset: 08-14-2024 Chronic Other gastrointestinal disorders (20 sources) Diarrhea; Translations: [Diarrhea, unspecified] 08-07-2024 Episodic Other gastrointestinal disorders (10 sources) Oropharyngeal dysphagia; Translations: [Dysphagia, oropharyngeal phase] 04-30-2024 Episodic Other gastrointestinal disorders (10 sources) Constipation; Translations: [Constipation, unspecified] 04-30-2024 Episodic Other liver diseases (1 source) Enzyme level - finding; Translations: [Transaminitis] 09-27-2022 Episodic Other lower respiratory disease (20 sources) Pulmonary edema; Translations: [Chronic pulmonary edema] 08-14-2024 Chronic Other lower respiratory disease (2 sources) Chronic pulmonary edema; Translations: [Chronic pulmonary edema] Onset: 10-18-2024 Chronic Other lower respiratory disease (1 source) Cough; Translations: [Cough] Episodic Other lower respiratory disease (1 source) Wheezing; Translations: [Wheezing] Episodic Other lower respiratory disease (1 source) Nodule of lung; Translations: [Solitary pulmonary nodule] 09-27-2022 Episodic Other lower respiratory disease (1 source) Shortness of breath; Translations: [Shortness of breath] Onset: 09-19-2024 Episodic Other nervous system disorders (2 sources) Idiopathic peripheral neuropathy; Translations: [Hereditary and idiopathic neuropathy, unspecified] Chronic Other nervous system disorders (1 source) Paresthesia; Translations: [Paresthesia of skin] 08-24-2023 Episodic Other nervous system disorders (10 sources) Unsteady when standing; Translations: [Unsteadiness on feet] 04-30-2024 Episodic Other nervous system disorders (10 sources) Finding related to ability to move; Translations: [Other abnormalities of gait and mobility] 04-30-2024 Episodic Other nervous system disorders (10 sources) Symbolic dysfunction; Translations: [Other symbolic dysfunctions] 04-30-2024 Episodic Other non-traumatic joint disorders (2 sources) Pain in right hip; Translations: [Pain in right hip] Onset: 04-08-2019 Episodic Other non-traumatic joint disorders (2 sources) Pain in left hip; Translations: [Pain in left hip] Onset: 04-08-2019 Episodic Other skin disorders (1 source) Acquired plantar keratoderma; Translations: [Acquired keratosis [keratoderma] palmaris et plantaris] Episodic Other skin disorders (17 sources) Localized infection of skin AND/OR subcutaneous tissue; Translations: [Changes in skin texture] 06-05-2024 Episodic Other upper respiratory infections (5 sources) Upper respiratory infection; Translations: [Acute maxillary sinusitis] Episodic Peripheral and visceral atherosclerosis (20 sources) Peripheral vascular disease, unspecified; Translations: [Peripheral vascular disease] Onset: 10-24-2023 11-17-2023 Chronic Residual codes; unclassified (1 source) History of appendectomy; Translations: [S/P appendectomy] Episodic Residual codes; unclassified (1 source) Postmenopausal state; Translations: [Asymptomatic menopausal state] Episodic Residual codes; unclassified (20 sources) Edema, generalized; Translations: [Generalized edema] 08-14-2024 Episodic Residual codes; unclassified (17 sources) History of repair of aneurysm of abdominal aorta; Translations: [Other specified postprocedural states] 06-05-2024 Episodic Respiratory failure; insufficiency; arrest (adult) (12 sources) Acute respiratory failure; Translations: [Acute respiratory failure with hypoxia] Onset: 10-18-2024 04-30-2024 Episodic Skin and subcutaneous tissue infections (1 source) Infection of toe ; Translations: [Local infection of the skin and subcutaneous tissue, unspecified] Episodic Substance-related disorders (7 sources) Smoker; Translations: [Nicotine dependence, unspecified, uncomplicated] Onset: 10-09-2023 Chronic Substance-related disorders (1 source) Cigarette smoker ; Translations: [Cigarette Smoker] Episodic Thyroid disorders (20 sources) Hypothyroidism; Translations: [Hypothyroidism, unspecified] Onset: 06-29-2016 06-29-2016 Chronic Unclassified (15 sources) Acute appendicitis with localized peritonitis and gangrene, without perforation; Translations: [Acute appendicitis with localized peritonitis and gangrene, without perforation or abscess] Onset: 09-15-2018 09-15-2018 Unclassified (2 sources) Infrarenal abdominal aortic aneurysm, ruptured; Translations: [Infrarenal abdominal aortic aneurysm, ruptured] Onset: 10-09-2023 Unclassified (4 sources) Abdominal aortic aneurysm, ruptured, unspecified; Translations: [Abdominal aortic aneurysm, ruptured, unspecified] Onset: 10-10-2023 Unclassified (3 sources) Juxtarenal abdominal aortic aneurysm, ruptured; Translations: [Juxtarenal abdominal aortic aneurysm, ruptured] Onset: 10-10-2023 Unclassified (2 sources) RUPTURED AAA Onset: 10-09-2023 Unclassified (1 source) Low back pain, unspecified; Translations: [Low back pain, unspecified] Onset: 09-26-2023 Past or Other Problems Problem Classification Problem Date Documented Da te Episodic/Chronic Acute and unspecified renal failure (13 sources) Acute renal failure syndrome; Translations: [Acute kidney failure, unspecified] Onset: 4 11-02-2023 Episodic Acute posthemorrhagic anemia (20 sources) Acute posthemorrhagic anemia; Translations: [Acute posthemorrhagic anemia] Onset: 4 Episodic Appendicitis and other appendiceal conditions (20 sources) Acute appendicitis; Translations: [Acute appendicitis with localized peritonitis and gangrene, without perforation] Onset: 9 Resolved: 3 09-15-2018 Episodic Complication of device; implant or graft (20 sources) Disorder of vascular graft; 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, sequela] Onset: 4 01-19-2024 Episodic Fever of unknown origin (1 source) Fever, unspecified; Translations: [Fever, unspecified] Onset: 5 Episodic Gastrointestinal hemorrhage (20 sources) Gastrointestinal hemorrhage; Translations: [Gastrointestinal hemorrhage, unspecified] Onset: 5 08-05-2024 Episodic Genitourinary symptoms and ill-defined conditions (12 sources) Dysuria; Translations: [Mike hematuria] Onset: 5 04-30-2024 Episodic Intestinal infection (20 sources) Clostridium difficile colitis; Translations: [Enterocolitis due to Clostridium difficile, not specified as recurrent] Onset: 4 02-21-2024 Episodic Mood disorders (10 sources) Mood disorders Onset: 3 Resolved: 3 06-06-2022 Open wounds of head; neck; and trunk (20 sources) Open wound of abdomen; Translations: [Unspecified open wound of abdominal wall, unspecified quadrant without penetration into peritoneal cavity, initial encounter] Onset: 5 08-06-2024 Episodic Other circulatory disease (5 sources) Orthostatic hypotension; Translations: [Orthostatic hypotension] Onset: 4 11-02-2023 Episodic Other circulatory disease (2 sources) Orthostatic hypotension; Translations: [Orthostatic hypotension] Onset: 4 Episodic Other circulatory disease (2 sources) Hypotension, unspecified; Translations: [Hypotension, unspecified] Onset: 4 Episodic Other circulatory disease (2 sources) Other disorder of circulatory system; Translations: [Other disorder of circulatory system] Onset: 4 Episodic Other circulatory disease (1 source) Personal history of other diseases of the circulatory system; Translations: [Personal history of other diseases of the circulatory system] Onset: 5 Episodic Other connective tissue disease (3 sources) Other symptoms and signs involving the musculoskeletal system; Translations: [Other musculoskeletal symptoms referable to limbs] Onset: 4 08-24-2023 Episodic Other diseases of kidney and ureters (4 sources) Disorder of kidney and ureter, unspecified; Translations: [Disorder of kidney and ureter, unspecified] Onset: 4 Episodic Other gastrointestinal disorders (1 source) Diarrhea, unspecified; Translations: [Diarrhea, unspecified] Onset: 5 Episodic Other lower respiratory disease (2 sources) Solitary pulmonary nodule; Translations: [Solitary pulmonary nodule] Onset: 4 Episodic Other nervous system disorders (2 sources) Paresthesia of skin; Translations: [Paresthesia of skin] Onset: 4 Episodic Other non-traumatic joint disorders (20 sources) Hip pain; Translations: [Pain in right hip] Onset: 9 04-08-2019 Episodic Other screening for suspected conditions (not mental disorders or infectious disease) (20 sources) Patient encounter status; Translations: [Encounter for screening mammogram for malignant neoplasm of breast] Onset: 3 Episodic Other skin disorders (1 source) Changes in skin texture; Translations: [Changes in skin texture] Onset: 5 Episodic Phlebitis; thrombophlebitis and thromboembolism (20 sources) Acute deep venous thrombosis of left axillary vein; Translations: [Acute embolism and thrombosis of left axillary vein] Onset: 3 Episodic Pleurisy; pneumothorax; pulmonary collapse (19 sources) Pleural effusion; Translations: [Pleural effusion, not elsewhere classified] Onset: 5 08-15-2024 Episodic Residual codes; unclassified (3 sources) Other specified postprocedural states; Translations: [Other specified postprocedural states] Onset: 4 Episodic Residual codes; unclassified (1 source) Generalized edema; Translations: [Generalized edema] Onset: 5 Episodic Spondylosis; intervertebral disc disorders; other back problems (10 sources) Lumbago with sciatica; Translations: [Lumbago with sciatica, right side] Onset: 4 07-04-2023 Episodic Syncope (13 sources) Syncope and collapse; Translations: [Near syncope] Onset: 4 Episodic Unclassified (2 sources) Infrarenal abdominal aortic aneurysm, ruptured; Translations: [Infrarenal abdominal aortic aneurysm, ruptured] Onset: 4 Unclassified (2 sources) Abdominal aortic aneurysm, ruptured, unspecified; Translations: [Abdominal aortic aneurysm, ruptured, unspecified] Onset: 4 Unclassified (3 sources) Juxtarenal abdominal aortic aneurysm, ruptured; Translations: [Juxtarenal abdominal aortic aneurysm, ruptured] Onset: 4 Unclassified (1 source) Low back pain, unspecified; Translations: [Low back pain, unspecified] Onset: 4 Urinary tract infections (11 sources) Urinary tract infectious disease; Translations: [Urinary tract infection, site not specified] Onset: 5 04-19-2024 Episodic Results Test Name Value Interpretation Reference Range Facility Gram Stainon 11-21-2024 GS LT HALLUX Gram Stain 2+ Red Blood Cells No organisms seen Normal [facility] Comment on above: Performed By: #### M 100.3000, M100.2000 ####[facility] [address] [place], [address] Wound Cultureon 11-21-2024 WC LT HALLUX No growth aerobically. Normal [facility] Comment on above: Performed By: #### M 100.3000, M100.1999 ####[facility] [address] [place], [address] Gram stainOrdered By: Ying Contreras on 11-20-2024 Microscopic observation Gram stain Nom (Unsp spec) [facility] Absolute lymphocyte countOrd ered By: Millie Massey on 11-18-2024 Lymphocytes Auto (Unsp spec) [#/Vol] 0.51 10*3/uL Low 0.83-4.51 [facility] Anion gap in Serum or Plasma Ordered By: Millie Massey on 11-18-2024 Anion gap [Moles/Vol] 16 mmol/L High 5-15 [facility] Automated lymphocyte count a s percentage of total leukocytesOrdered By: Millie Massey on 11-18-2024 Lymphocytes/100 WBC Auto (Unsp spec) 7.3 % Low 19-41 [facility] BUN/creatinine ratioOrdered By: Millie Massey on 11-18-2024 Urea nitrogen/Creatinine [Mass ratio] 45.1 mg/mg High 10-20 [facility] Basic Metabolic Profile (BMP )on 11-18-2024 Urea nitrogen [Mass/Vol] 106 mg/dL Invalid Interpretation Code 09-14 [facility] Comment on above: Order Comment: 105-1 Result Comment: Crit ical Result(s) Called at:11-18-24 at 11:08 to Joyce by: Susan Arias??Results read back by same. Performed By: #### L 500.2500, L100.0100, L501.6710 ####[facility] [address] [place], [address] Basophil percentageOrdered B y: Millie Massey on 11-18-2024 Basophils/100 WBC (Bld) 0.3 % 0-1 [facility] CBC W/Diff, Automatedon 10-28 Absolute Lymph 0.51 X10 3/uL Low 0.83-4.51 [facility] Comment on above: Order Comment: 105-1 Performed By: #### L 500.2500, L100.0100, L501.6710 ####[facility] [address] [place], [address] Absolute Neut 5.5 X10 3/uL Normal 2.0-7.7 [facility] Comment on above: Order Comment: 105-1 Performed By: #### L 500.2500, L100.0100, L501.6710 ####[facility] [address] [place], [address] Basophils/100 WBC (Bld) 0.3 % Normal 0-1 [facility] Comment on above: Order Comment: 105-1 Performed By: #### L 500.2500, L100.0100, L501.6710 ####[facility] [address] [place], [address] Eosinophils/100 WBC (Bld) 4.1 % Normal 0-5 [facility] Comment on above: Order Comment: 105-1 Performed By: #### L 500.2500, L100.0100, L501.6710 ####[facility] [address] [place], [address] Erythrocyte distribution width (RBC) [Ratio] 18.2 % High 11.6-14.6 [facility] Comment on above: Order Comment: 105-1 Performed By: #### L 500.2500, L100.0100, L501.6710 ####[facility] [address] [place], [address] Hematocrit (Bld) [Volume fraction] 33.8 % Low 37-47 [facility] Comment on above: Order Comment: 105-1 Performed By: #### L 500.2500, L100.0100, L5.6710 ####[facility] [address] [place], [address] Hemoglobin (Bld) [Mass/Vol] 10.5 g/dL Low 12.0-15.0 [facility] Comment on above: Order Comment: 105-1 Performed By: #### L 500.2500, L100.0100, L5.10 ####[facility] [address] [place], [address] IG% 0.600 Normal 0.0-0.9 [facility] Comment on above: Order Comment: 105-1 Result Comment: IG% - Immature Granulocytes (promyelocytes, myelocytes andmetamyelocytes) > 1% indicates that a LEFT SHIFT is Present. Performed By: #### L 500.2500, L100.0100, L501.6710 ####[facility] [address] [place], [address] Lymphocytes/100 WBC (Bld) 7.3 % Low 19-41 [facility] Comment on above: Order Comment: 105-1 Performed By: #### L 500.2500, L100.0100, L501.6710 ####[facility] [address] [place], [address] MCH (RBC) [Entitic mass] 27.5 pg Normal 27.0-32.0 [facility] Comment on above: Order Comment: 105-1 Performed By: #### L 500.2500, L100.0100, L501.6710 ####[facility] [address] [place], [address] MCHC (RBC) [Mass/Vol] 31.1 g/dL Low 32-36 [facility] Comment on above: Order Comment: 105-1 Performed By: #### L 500.2500, L100.0100, L501.6710 ####[facility] [address] [place], [address] MCV (RBC) [Entitic vol] 88.5 fL Normal 81-99 [facility] Comment on above: Order Comment: 105-1 Performed By: #### L 500.2500, L100.0100, [id number] ####[facility] [address] [place], [address] Monocytes/100 WBC (Bld) 9.4 % Normal 0-10 [facility] Comment on above: Order Comment: 105-1 Performed By: #### L 500.2500, L100.0100, L501.6710 ####[facility] [address] [place], [address] Neutrophils/100 WBC (Bld) 78.3 % High 47-70 [facility] Comment on above: Order Comment: 105-1 Performed By: #### L 500.2500, L100.0100, L501.6710 ####[facility] [address] [place], [address] Nucleated RBC (Bld) [#/Vol] 0 10*3/uL Normal 0-5 [facility] Comment on above: Order Comment: 105-1 Performed By: #### L 500.2500, L100.0100, L501.6710 ####[facility] [address] [place], [address] Platelet mean volume (Bld) [Entitic vol] 11.8 fL Normal 6.2-12.0 [facility] Comment on above: Order Comment: 105-1 Performed By: #### L 500.2500, L100.0100, L501.6710 ####[facility] [address] [place], [address] Platelets (Bld) [#/Vol] 179 10*3/uL Normal 150-450 [facility] Comment on above: Order Comment: 105-1 Performed By: #### L 500.2500, L100.0100, L501.6710 ####[facility] [address] [place], [address] RBC (Bld) [#/Vol] 3.82 10*6/uL Low 4.2-5.4 [facility] Comment on above: Order Comment: 105-1 Performed By: #### L 500.2500, L100.0100, L501.6710 ####[facility] [address] [place], [address] RDW SD 57.6 fl High 35.1-43.9 [facility] Comment on above: Order Comment: 105-1 Performed By: #### L 500.2500, L100.0100, L501.6710 ####[facility] [address] [place], [address] WBC (Bld) [#/Vol] 7.0 10*3/uL Normal 4.4-11.0 [facility] Comment on above: Order Comment: 105-1 Performed By: #### L 500.2500, L100.0100, L501.6710 ####[facility] [address] [place], [address] CRPon 11-18-2024 C-REACTIVE PROT 21.20 mg/L High 0.0-3.0 [facility] Comment on above: Order Comment: 105-1 Performed By: #### L 500.2500, L100.0100, L501.6710 ####[facility] [address] [place], [place], [id number] Carbon dioxide, total [Moles /volume] in Central venous bloodOrdered By: Millie Massey on 11-18-2024 CO2 [Moles/Vol] 26.5 mmol/L 21.0-32.0 [facility] Chloride assayOrdered By: Carter Massey on 11-18-2024 Chloride [Moles/Vol] 92 mmol/L Low 98-108 [facility] Eosinophil percentageOrdered By: Millie Massey on 11-18-2024 Eosinophils/100 WBC (Bld) 4.1 % 0-5 [facility] Erythrocyte distribution wid th ratioOrdered By: Millie Massey on 11-18-2024 Erythrocyte distribution width (RBC) [Ratio] 18.2 % High 11.6-14.6 [facility] Erythrocyte distribution wid th standard deviationOrdered By: Millie Massey on 11-18-2024 Erythrocyte distribution width (RBC) [Ratio] 57.6 fl High 35.1-43.9 [facility] Glomerular filtration rate ( GFR) estimation/1.73 sq m using serum, plasma, or whole bOrdered By: Millie Massey on 11-18-2024 GFR/1.73 sq M.predicted among non-blacks MDRD (S/P/Bld) [Vol rate/Area] 23 mL/min/{1.73_m2} Low >60 [facility] Hematocrit Auto (Bld) [Volum e fraction]Ordered By: Millie Massey on 11-18-2024 Hematocrit (Bld) [Volume fraction] 33.8 % Low 37-47 [facility] Hemoglobin measurementOrdere d By: Millie Massey on 11-18-2024 Hemoglobin (Bld) [Mass/Vol] 10.5 g/dL Low 12.0-15.0 [facility] Immature granulocytes/100 WB C Auto (Bld)Ordered By: Millie Massey on 11-18-2024 Immature granulocytes/100 WBC (Bld) 0.600 % 0.0-0.9 [facility] MCV (mean corpuscular volume ) determinationOrdered By: Millie Massey on 11-18-2024 MCV (RBC) [Entitic vol] 88.5 fL 81-99 [facility] Mean corpuscular hemoglobin (MCH) determinationOrdered By: Millie Massey on 11-18-2024 MCH (RBC) [Entitic mass] 27.5 pg 27.0-32.0 [facility] Monocyte percentageOrdered B y: Millie Massey on 11-18-2024 Monocytes/100 WBC (Bld) 9.4 % 0-10 [facility] Neutrophil percentageOrdered By: Millie Massey on 11-18-2024 Neutrophils/100 WBC (Bld) 78.3 % High 47-70 [facility] Platelet countOrdered By: Carter Massey on 11-18-2024 Platelets (Bld) [#/Vol] 179 10*3/uL 150-450 [facility] Potassium measurement (mass/ volume)Ordered By: Millie Massey on 11-18-2024 Potassium (Unsp spec) [Mass/Vol] 4.0 mmol/L 3.3-5.1 [facility] RBC Auto (Bld) [#/Vol]Ordere d By: Millie Massey on 11-18-2024 RBC (Bld) [#/Vol] 3.82 10*6/uL Low 4.2-5.4 [facility] Serum creatinine measurement (mass/volume)Ordered By: Millie Massey on 11-18-2024 Creatinine [Mass/Vol] 2.35 mg/dL High 0.70-1.20 [facility] Serum glucose measurement (m ass/volume)Ordered By: Millie Massey on 11-18-2024 Glucose [Mass/Vol] 112 mg/dL High 70-99 [facility] Serum or plasma C reactive p rotein measurement (mass/volume)Ordered By: Millie Massey on 11-18-2024 CRP [Mass/Vol] 21.20 mg/L High 0.0-3.0 [facility] Serum or plasma calcium megan urement (mass/volume)Ordered By: Millie Massey on 11-18-2024 Calcium [Mass/Vol] 11.7 mg/dL High 7.6-11.0 [facility] Serum or plasma urea nitroge n measurement (mass/volume)Ordered By: Millie Massey on 11-18-2024 Urea nitrogen [Mass/Vol] 106 mg/dL High 4-19 [facility] Sodium levelOrdered By: Silvana Massey on 11-18-2024 Sodium [Moles/Vol] 134 mmol/L 133-145 [facility] White blood cell (WBC) count Ordered By: Millie Massey on 11-18-2024 WBC (Bld) [#/Vol] 7.0 10*3/uL 4.4-11.0 [facility] TSH DL <= 0.005 mIU/L QnOrde red By: Millie Massey on 11-12-2024 TSH Qn 0.881 uIU/mL 0.300-4.20 0 [facility] Thyroid Stim Hormone (TSH)on 11-12-2024 TSH 0.881 uIU/mL Normal 0.300-4.20 0 [facility] Comment on above: Order Comment: 105 Performed By: #### L 501.9575 ####[facility] [address] [place], [address] Wound Cultureon 11-08-2024 WC Normal [facility] Comment on above: Performed By: #### M 100.2000, M100.3000 ####[facility] [address] [place], [address] CBC W/Diff, Automatedon 10-27 Absolute Lymph 0.44 X10 3/uL Low 0.83-4.51 [facility] Comment on above: Performed By: #### L 100.0100, L3000.0375, L501.6710 ####[facility] [address] [place], [address] Absolute Neut 5.2 X10 3/uL Normal 2.0-7.7 [facility] Comment on above: Performed By: #### L 100.0100, L3000.0375, L501.6710 ####[facility] [address] [place], [address] Basophils/100 WBC (Bld) 0.6 % Normal 0-1 [facility] Comment on above: Performed By: #### L 100.0100, L3000.0375, L501.6710 ####[facility] [address] [place], [address] Eosinophils/100 WBC (Bld) 3.6 % Normal 0-5 [facility] Comment on above: Performed By: #### L 100.0100, L3000.0375, L501.6710 ####[facility] [address] [place], [address] Erythrocyte distribution width (RBC) [Ratio] 17.1 % High 11.6-14.6 [facility] Comment on above: Performed By: #### L 100.0100, L3000.0375, L501.6710 ####[facility] [address] [place], [address] Hematocrit (Bld) [Volume fraction] 36.9 % Low 37-47 [facility] Comment on above: Performed By: #### L 100.0100, L3000.0375, L501.6710 ####[facility] [address] [place], [address] Hemoglobin (Bld) [Mass/Vol] 11.4 g/dL Low 12.0-15.0 [facility] Comment on above: Performed By: #### L 100.0100, L3000.0375, L501.6710 ####[facility] [address] [place], [address] IG% 0.300 Normal 0.0-0.9 [facility] Comment on above: Result Comment: IG% - Immature Granulocytes (promyelocytes, myelocytes andmetamyelocytes) > 1% indicates that a LEFT SHIFT is Present. Performed By: #### L 100.0100, L3000.0375, L501.6710 ####[facility] [address] [place], [address] Lymphocytes/100 WBC (Bld) 6.7 % Low 19-41 [facility] Comment on above: Performed By: #### L 100.0100, L3000.0375, L501.6710 ####[facility] [address] [place], [address] MCH (RBC) [Entitic mass] 27.0 pg Normal 27.0-32.0 [facility] Comment on above: Performed By: #### L 100.0100, L3000.0375, L501.6710 ####[facility] [address] [place], [address] MCHC (RBC) [Mass/Vol] 30.9 g/dL Low 32-36 [facility] Comment on above: Performed By: #### L 100.0100, L3000.0375, L501.6710 ####[facility] [address] [place], [address] MCV (RBC) [Entitic vol] 87.2 fL Normal 81-99 [facility] Comment on above: Performed By: #### L 100.0100, L3000.0375, L501.6710 ####[facility] [address] [place], [address] Monocytes/100 WBC (Bld) 9.7 % Normal 0-10 [facility] Comment on above: Performed By: #### L 100.0100, L3000.0375, L501.6710 ####[facility] [address] [place], [address] Neutrophils/100 WBC (Bld) 79.1 % High 47-70 [facility] Comment on above: Performed By: #### L 100.0100, L3000.0375, L501.6710 ####[facility] [address] [place], [address] Nucleated RBC (Bld) [#/Vol] 0 10*3/uL Normal 0-5 [facility] Comment on above: Performed By: #### L 100.0100, L3000.0375, L501.6710 ####[facility] [address] [place], [address] Platelet mean volume (Bld) [Entitic vol] 12.0 fL Normal 6.2-12.0 [facility] Comment on above: Performed By: #### L 100.0100, L3000.0375, L501.6710 ####[facility] [address] [place], [address] Platelets (Bld) [#/Vol] 189 10*3/uL Normal 150-450 [facility] Comment on above: Performed By: #### L 100.0100, L3000.0375, L501.6710 ####[facility] [address] [place], [address] RBC (Bld) [#/Vol] 4.23 10*6/uL Normal 4.2-5.4 [facility] Comment on above: Performed By: #### L 100.0100, L3000.0375, L501.6710 ####[facility] [address] [place], [address] RDW SD 54.8 fl High 35.1-43.9 [facility] Comment on above: Performed By: #### L 100.0100, L3000.0375, L501.6710 ####[facility] [address] [place], [address] WBC (Bld) [#/Vol] 6.6 10*3/uL Normal 4.4-11.0 [facility] Comment on above: Performed By: #### L 100.0100, L3000.0375, L501.6710 ####[facility] [address] [place], [address] CRPon 11-05-2024 C-REACTIVE PROT 11.90 mg/L High 0.0-3.0 [facility] Comment on above: Performed By: #### L 100.0100, L3000.0375, L501.6710 ####[facility] [address] [place], [address] Gram Stainon 11-05-2024 GS LEFT GREAT TOE Gram Stain 3+ Gram positive cocci Rare Gram positive rods Rare Epithelial cells No White Blood Cells Normal [facility] Comment on above: Performed By: #### M 100.2000, M100.3000 ####[facility] [address] [place], [address] Gram stainOrdered By: Millie Massey on 11-05-2024 Microscopic observation Gram stain Nom (Unsp spec) [facility] Hepatitis Panel Acuteon 10-27 COMMENT Comment Normal . [facility] Comment on above: Order Comment: 105.1 Result Comment: Not infected with HCV unless early or acute infection issuspected (which may be delayed in an immunocompromisedindividual), or other evidence exists to indicate HCVinfection.Performed at: - [facility] [id number] Director: Manjinder Babb PhD, Phone: [phone] Performed By: #### L 100.0100, L3000.0375, L501.6710 ####[facility] [address] [place], [address] HEP B CORE,IgM Negative Normal Negative [facility] Comment on above: Order Comment: 105.1 Performed By: #### L 100.0100, L3000.0375, L501.6710 ####[facility] [address] [place], [address] HEP B SURF AG Negative Normal Negative [facility] Comment on above: Order Comment: 105.1 Performed By: #### L 100.0100, L3000.0375, L501.6710 ####[facility] [address] [place], [address] HEP C VIRUS AB Non-Reactive Normal Non Reactive [facility] Comment on above: Order Comment: 105.1 Performed By: #### L 100.0100, L3000.0375, L501.6710 ####[facility] [address] [place], [address] HEPATITIS A-IgM Negative Normal Negative [facility] Comment on above: Order Comment: 105.1 Result Comment: A ne gative anti-HAV IgM result suggests no recent orcurrent HAV infection. Performed By: #### L 100.0100, L3000.0375, L501.6710 ####[facility] [address] [place], [place], [id number] Absolute lymphocyte countOrd ered By: Millie Massey on 11-04-2024 Lymphocytes Auto (Unsp spec) [#/Vol] 0.44 10*3/uL Low 0.83-4.51 [facility] Automated lymphocyte count a s percentage of total leukocytesOrdered By: Millie Massey on 11-04-2024 Lymphocytes/100 WBC Auto (Unsp spec) 6.7 % Low 19-41 [facility] Basophil percentageOrdered B y: Millie Massey on 11-04-2024 Basophils/100 WBC (Bld) 0.6 % 0-1 [facility] Eosinophil percentageOrdered By: Millie Massey on 11-04-2024 Eosinophils/100 WBC (Bld) 3.6 % 0-5 [facility] Erythrocyte distribution wid th ratioOrdered By: Millie Massey on 11-04-2024 Erythrocyte distribution width (RBC) [Ratio] 17.1 % High 11.6-14.6 [facility] Erythrocyte distribution wid th standard deviationOrdered By: Millie Massey on 11-04-2024 Erythrocyte distribution width (RBC) [Ratio] 54.8 fl High 35.1-43.9 [facility] Hematocrit Auto (Bld) [Volum e fraction]Ordered By: Millie Massey on 11-04-2024 Hematocrit (Bld) [Volume fraction] 36.9 % Low 37-47 [facility] Hemoglobin measurementOrdere d By: Millie Massey on 11-04-2024 Hemoglobin (Bld) [Mass/Vol] 11.4 g/dL Low 12.0-15.0 [facility] Immature granulocytes/100 WB C Auto (Bld)Ordered By: Millie Massey on 11-04-2024 Immature granulocytes/100 WBC (Bld) 0.300 % 0.0-0.9 [facility] MCV (mean corpuscular volume ) determinationOrdered By: Millie Massey on 11-04-2024 MCV (RBC) [Entitic vol] 87.2 fL 81-99 [facility] Mean corpuscular hemoglobin (MCH) determinationOrdered By: Millie Massey on 11-04-2024 MCH (RBC) [Entitic mass] 27.0 pg 27.0-32.0 [facility] Monocyte percentageOrdered B y: Millie Massey on 11-04-2024 Monocytes/100 WBC (Bld) 9.7 % 0-10 [facility] Neutrophil percentageOrdered By: Millie Massey on 11-04-2024 Neutrophils/100 WBC (Bld) 79.1 % High 47-70 [facility] No Panel InformationOrdered By: Millie Massey on 11-04-2024 Comment . [facility] Platelet countOrdered By: Carter Massey on 11-04-2024 Platelets (Bld) [#/Vol] 189 10*3/uL 150-450 [facility] RBC Auto (Bld) [#/Vol]Ordere d By: Millie Massey on 11-04-2024 RBC (Bld) [#/Vol] 4.23 10*6/uL 4.2-5.4 [facility] Serum or plasma C reactive p rotein measurement (mass/volume)Ordered By: Millie Massey on 11-04-2024 CRP [Mass/Vol] 11.90 mg/L High 0.0-3.0 [facility] Serum or plasma hepatitis B virus surface antigen detection by immunoassayOrdered By: Millie Massey on 11-04-2024 HBV surface Ag IA Ql Negative Negative [facility] White blood cell (WBC) count Ordered By: Millie Massey on 11-04-2024 WBC (Bld) [#/Vol] 6.6 10*3/uL 4.4-11.0 [facility] Anion gap in Serum or Plasma Ordered By: Millie Massey on 10-30-2024 Anion gap [Moles/Vol] 11 mmol/L 5-15 [facility] BUN/creatinine ratioOrdered By: Millie Massey on 10-30-2024 Urea nitrogen/Creatinine [Mass ratio] 44.3 mg/mg High 10-20 [facility] Bilirubin, totalOrdered By: Millie Massey on 10-30-2024 Bilirubin [Mass/Vol] 0.26 mg/dL 0.00-1.30 [facility] CBC-Complete Blood Cnt No Di ffon 10-30-2024 Erythrocyte distribution width (RBC) [Ratio] 17.0 % High 11.6-14.6 [facility] Comment on above: Performed By: #### L 100.0500, L500.4050 ####[facility] [address] [place], [place], [id number] Hematocrit (Bld) [Volume fraction] 34.9 % Low 37-47 [facility] Comment on above: Performed By: #### L 100.0500, L500.4050 ####[facility] [address] [place], [place], [address] Hemoglobin (Bld) [Mass/Vol] 10.6 g/dL Low 12.0-15.0 [facility] Comment on above: Performed By: #### L 100.0500, L500.4050 ####[facility] [address] [place], [address] MCH (RBC) [Entitic mass] 26.8 pg Low 27.0-32.0 [facility] Comment on above: Performed By: #### L 100.0500, L500.4050 ####[facility] [address] [place], [address] MCHC (RBC) [Mass/Vol] 30.4 g/dL Low 32-36 [facility] Comment on above: Performed By: #### L 100.0500, L500.4050 ####[facility] [address] [place], [address] MCV (RBC) [Entitic vol] 88.4 fL Normal 81-99 [facility] Comment on above: Performed By: #### L 100.0500, L500.4050 ####[facility] [address] [place], [address] Platelet mean volume (Bld) [Entitic vol] 11.2 fL Normal 6.2-12.0 [facility] Comment on above: Performed By: #### L 100.0500, L500.4050 ####[facility] [address] [place], [address] Platelets (Bld) [#/Vol] 172 10*3/uL Normal 150-450 [facility] Comment on above: Performed By: #### L 100.0500, L500.4050 ####[facility] [address] [place], [address] RBC (Bld) [#/Vol] 3.95 10*6/uL Low 4.2-5.4 [facility] Comment on above: Performed By: #### L 100.0500, L500.4050 ####[facility] [address] [place], [address] RDW SD 55.4 fl High 35.1-43.9 [facility] Comment on above: Performed By: #### L 100.0500, L500.4050 ####[facility] [address] [place], [address] WBC (Bld) [#/Vol] 5.7 10*3/uL Normal 4.4-11.0 [facility] Comment on above: Performed By: #### L 100.0500, L500.4050 ####[facility] [address] [place], [address] Carbon dioxide, total [Moles /volume] in Central venous bloodOrdered By: Millie Massey on 10-30-2024 CO2 [Moles/Vol] 30.0 mmol/L 21.0-32.0 [facility] Chloride assayOrdered By: Carter Massey on 10-30-2024 Chloride [Moles/Vol] 93 mmol/L Low 98-108 [facility] Comprehensive Metabolic Prof ilon 10-30-2024 Albumin [Mass/Vol] 2.9 g/dL Low 3.4-4.8 [facility] Comment on above: Performed By: #### L 100.0500, L500.4050 ####[facility] [address] [place], [address] Albumin/Globulin [Mass ratio] 0.8 {ratio} Low 0.9-2.4 [facility] Comment on above: Performed By: #### L 100.0500, L500.4050 ####[facility] [address] [place], [address] ALK PHOS 172 U/L High 35-104 [facility] Comment on above: Performed By: #### L 100.0500, L500.4050 ####[facility] [address] [place], [address] ALT [Catalytic activity/Vol] 173 U/L High <=34 [facility] Comment on above: Performed By: #### L 100.0500, L500.4050 ####[facility] [address] [place], [address] AST [Catalytic activity/Vol] 196 U/L High <=31 [facility] Comment on above: Performed By: #### L 100.0500, L500.4050 ####[facility] [address] [place], [address] Bilirubin [Mass/Vol] 0.26 mg/dL Normal 0.00-1.30 [facility] Comment on above: Performed By: #### L 100.0500, L500.4050 ####[facility] [address] [place], [address] BUN/CRE 44.3 RATIO High 10-20 [facility] Comment on above: Performed By: #### L 100.0500, L500.4050 ####[facility] [address] [place], [address] Calcium [Mass/Vol] 10.9 mg/dL Normal 7.6-11.0 [facility] Comment on above: Performed By: #### L 100.0500, L500.4050 ####[facility] [address] [place], [address] Chloride [Moles/Vol] 93 mmol/L Low 98-108 [facility] Comment on above: Performed By: #### L 100.0500, L500.4050 ####[facility] [address] [place], [address] CO2 [Moles/Vol] 30.0 mmol/L Normal 21.0-32.0 [facility] Comment on above: Performed By: #### L 100.0500, L500.4050 ####[facility] [address] [place], [address] Creatinine [Mass/Vol] 1.57 mg/dL High 0.70-1.20 [facility] Comment on above: Performed By: #### L 100.0500, L500.4050 ####[facility] [address] [place], [address] GAP 11 Normal 5-15 [facility] Comment on above: Performed By: #### L 100.0500, L500.4050 ####[facility] [address] [place], [address] GFR/1.73 sq M.predicted among non-blacks MDRD (S/P/Bld) [Vol rate/Area] 37 mL/min/{1.73_m2} Low >60 [facility] Comment on above: Result Comment: mL/m in/1.73m2 CKD-EPI Creatinine Equation (2020) Performed By: #### L 100.0500, L500.4050 ####[facility] [address] [place], [address] Globulin (S) [Mass/Vol] 3.8 g/dL Normal 2.2-4.2 [facility] Comment on above: Performed By: #### L 100.0500, L500.4050 ####[facility] [address] [place], [address] Glucose [Mass/Vol] 109 mg/dL High 70-99 [facility] Comment on above: Performed By: #### L 100.0500, L500.4050 ####[facility] [address] [place], [address] Potassium [Moles/Vol] 3.3 mmol/L Normal 3.3-5.1 [facility] Comment on above: Performed By: #### L 100.0500, L500.4050 ####[facility] [address] [place], [address] Sodium [Moles/Vol] 133 mmol/L Normal 133-145 [facility] Comment on above: Performed By: #### L 100.0500, L500.4050 ####[facility] [address] [place], [address] T PROT 6.7 g/dL Normal 5.9-8.4 [facility] Comment on above: Performed By: #### L 100.0500, L500.4050 ####[facility] [address] [place], [address] Urea nitrogen [Mass/Vol] 70 mg/dL High 4-19 [facility] Comment on above: Performed By: #### L 100.0500, L500.4050 ####[facility] [address] [place], [address] Erythrocyte distribution wid th ratioOrdered By: Millie Massey on 10-30-2024 Erythrocyte distribution width (RBC) [Ratio] 17.0 % High 11.6-14.6 [facility] Erythrocyte distribution wid th standard deviationOrdered By: Millie Massey on 10-30-2024 Erythrocyte distribution width (RBC) [Ratio] 55.4 fl High 35.1-43.9 [facility] Glomerular filtration rate ( GFR) estimation/1.73 sq m using serum, plasma, or whole bOrdered By: Millie Massey on 10-30-2024 GFR/1.73 sq M.predicted among non-blacks MDRD (S/P/Bld) [Vol rate/Area] 37 mL/min/{1.73_m2} Low >60 [facility] Hematocrit Auto (Bld) [Volum e fraction]Ordered By: Millie Massey on 10-30-2024 Hematocrit (Bld) [Volume fraction] 34.9 % Low 37-47 [facility] Hemoglobin measurementOrdere d By: Millie Massey on 10-30-2024 Hemoglobin (Bld) [Mass/Vol] 10.6 g/dL Low 12.0-15.0 [facility] MCV (mean corpuscular volume ) determinationOrdered By: Millie Massey on 10-30-2024 MCV (RBC) [Entitic vol] 88.4 fL 81-99 [facility] Mean corpuscular hemoglobin (MCH) determinationOrdered By: Millie Massey on 10-30-2024 MCH (RBC) [Entitic mass] 26.8 pg Low 27.0-32.0 [facility] No Panel InformationOrdered By: Millie Massey on 10-30-2024 196 U/L High <32 [facility] Platelet countOrdered By: Carter Massey on 10-30-2024 Platelets (Bld) [#/Vol] 172 10*3/uL 150-450 [facility] Potassium measurement (mass/ volume)Ordered By: Millie Massey on 10-30-2024 Potassium (Unsp spec) [Mass/Vol] 3.3 mmol/L 3.3-5.1 [facility] RBC Auto (Bld) [#/Vol]Ordere d By: Millie Massey on 10-30-2024 RBC (Bld) [#/Vol] 3.95 10*6/uL Low 4.2-5.4 [facility] Serum creatinine measurement (mass/volume)Ordered By: Millie Massey on 10-30-2024 Creatinine [Mass/Vol] 1.57 mg/dL High 0.70-1.20 [facility] Serum globulin measurementOr dered By: Millie Massey on 10-30-2024 Globulin (S) [Mass/Vol] 3.8 g/dL 2.2-4.2 [facility] Serum glucose measurement (m ass/volume)Ordered By: Millie Massey on 10-30-2024 Glucose [Mass/Vol] 109 mg/dL High 70-99 [facility] Serum or plasma alanine camargo otransferase (ALT) measurementOrdered By: Millie Massey on 10-30-2024 ALT [Catalytic activity/Vol] 173 U/L High <35 [facility] Serum or plasma albumin megan urement (mass/volume)Ordered By: Millie Massey on 10-30-2024 Albumin [Mass/Vol] 2.9 g/dL Low 3.4-4.8 [facility] Serum or plasma albumin/glob ulin mass ratioOrdered By: Millie Massey on 10-30-2024 Albumin/Globulin [Mass ratio] 0.8 {ratio} Low 0.9-2.4 [facility] Serum or plasma alkaline susan sphatase measurementOrdered By: Millie Massey on 10-30-2024 ALP [Catalytic activity/Vol] 172 U/L High 35-104 [facility] Serum or plasma calcium megan urement (mass/volume)Ordered By: Millie Massey on 10-30-2024 Calcium [Mass/Vol] 10.9 mg/dL 7.6-11.0 [facility] Serum or plasma urea nitroge n measurement (mass/volume)Ordered By: Millie Massey on 10-30-2024 Urea nitrogen [Mass/Vol] 70 mg/dL High 4-19 [facility] Sodium levelOrdered By: Silvana Massey on 10-30-2024 Sodium [Moles/Vol] 133 mmol/L 133-145 [facility] Total proteinOrdered By: Lesli Massey on 10-30-2024 Protein [Mass/Vol] 6.7 g/dL 5.9-8.4 [facility] White blood cell (WBC) count Ordered By: Millie Massey on 10-30-2024 WBC (Bld) [#/Vol] 5.7 10*3/uL 4.4-11.0 [facility] Anion gap in Serum or Plasma Ordered By: Millie Massey on 09-23-2024 Anion gap [Moles/Vol] 13 mmol/L 5-15 [facility] BUN/creatinine ratioOrdered By: Millie Massey on 09-23-2024 Urea nitrogen/Creatinine [Mass ratio] 39.5 mg/mg High 10-20 [facility] Basic Metabolic Profile (BMP )on 09-23-2024 BUN/CRE 39.5 RATIO High 03-17 [facility] Comment on above: Order Comment: 206.1 Performed By: #### L 500.2500 ####[facility] [address] [place], [address] Calcium [Mass/Vol] 9.4 mg/dL Normal 7.6-11.0 [facility] Comment on above: Order Comment: .1 Performed By: #### L 500.2500 ####[facility] [facility] [address] [place], [address] Chloride [Moles/Vol] 94 mmol/L Low 98-108 [facility] Comment on above: Order Comment: .1 Performed By: #### L 500.2500 ####[facility] [address] [place], [address] CO2 [Moles/Vol] 23.4 mmol/L Normal 21.0-32.0 [facility] Comment on above: Order Comment: . Performed By: #### L 500.2500 ####[facility] [address] [place], [address] Creatinine [Mass/Vol] 1.42 mg/dL High 0.70-1.20 [facility] Comment on above: Order Comment: . Performed By: #### L 500.2500 ####[facility] [address] [place], [address] GAP 13 Normal 5-15 [facility] Comment on above: Order Comment: . Performed By: #### L 500.2500 ####[facility] [address] [place], [address] GFR/1.73 sq M.predicted among non-blacks MDRD (S/P/Bld) [Vol rate/Area] 42 mL/min/{1.73_m2} Low >60 [facility] Comment on above: Order Comment: . Result Comment: mL/m in/1.73m2 CKD-EPI Creatinine Equation (2020) Performed By: #### L 500.2500 ####[facility] [address], [address] Glucose [Mass/Vol] 98 mg/dL Normal 70-99 [facility] Comment on above: Order Comment: 206.1 Performed By: #### L 500.2500 ####[facility] [address] [place], [address] Potassium [Moles/Vol] 5.1 mmol/L Normal 3.3-5.1 [facility] Comment on above: Order Comment: 206.1 Result Comment: Hemo lysis present, Results??could be affected.?? Performed By: #### L 500.2500 ####[facility] [address] [place], [address] Sodium [Moles/Vol] 131 mmol/L Low 133-145 [facility] Comment on above: Order Comment: 206.1 Performed By: #### L 500.2500 ####[facility] [address] [place], [address] Urea nitrogen [Mass/Vol] 56 mg/dL High 4-19 [facility] Comment on above: Order Comment: 206.1 Performed By: #### L 500.2500 ####[facility] [address] [place], [address] Carbon dioxide, total [Moles /volume] in Central venous bloodOrdered By: Millie Massey on 09-23-2024 CO2 [Moles/Vol] 23.4 mmol/L 21.0-32.0 [facility] Chloride assayOrdered By: Carter Massey on 09-23-2024 Chloride [Moles/Vol] 94 mmol/L Low 98-108 [facility] Glomerular filtration rate ( GFR) estimation/1.73 sq m using serum, plasma, or whole bOrdered By: Millie Massey on 09-23-2024 GFR/1.73 sq M.predicted among non-blacks MDRD (S/P/Bld) [Vol rate/Area] 42 mL/min/{1.73_m2} Low >60 [facility] Potassium measurement (mass/ volume)Ordered By: Millie Massey on 09-23-2024 Potassium (Unsp spec) [Mass/Vol] 5.1 mmol/L 3.3-5.1 [facility] Serum creatinine measurement (mass/volume)Ordered By: Millie Massey on 09-23-2024 Creatinine [Mass/Vol] 1.42 mg/dL High 0.70-1.20 [facility] Serum glucose measurement (m ass/volume)Ordered By: Millie Massey on 09-23-2024 Glucose [Mass/Vol] 98 mg/dL 70-99 [facility] Serum or plasma calcium megan urement (mass/volume)Ordered By: Millie Massey on 09-23-2024 Calcium [Mass/Vol] 9.4 mg/dL 7.6-11.0 [facility] Serum or plasma urea nitroge n measurement (mass/volume)Ordered By: Millie Massey on 09-23-2024 Urea nitrogen [Mass/Vol] 56 mg/dL High 4-19 [facility] Sodium levelOrdered By: Silvana Massey on 09-23-2024 Sodium [Moles/Vol] 131 mmol/L Low 133-145 [facility] Anion gap in Serum or Plasma Ordered By: Millie Massey on 09-18-2024 Anion gap [Moles/Vol] 11 mmol/L 5-15 [facility] BUN/creatinine ratioOrdered By: Millie Massey on 09-18-2024 Urea nitrogen/Creatinine [Mass ratio] 39.3 mg/mg High 10-20 [facility] Bilirubin, totalOrdered By: Millie Massey on 09-18-2024 Bilirubin [Mass/Vol] 0.31 mg/dL 0.00-1.30 [facility] Carbon dioxide, total [Moles /volume] in Central venous bloodOrdered By: Millie Massey on 09-18-2024 CO2 [Moles/Vol] 28.1 mmol/L 21.0-32.0 [facility] Chloride assayOrdered By: Carter Massey on 09-18-2024 Chloride [Moles/Vol] 94 mmol/L Low 98-108 [facility] Comprehensive Metabolic Prof ilon 09-18-2024 Albumin [Mass/Vol] 2.9 g/dL Low 3.4-4.8 [facility] Comment on above: Order Comment: 200 Performed By: #### L 500.4050 ####[facility] [address] [place], [address] Albumin/Globulin [Mass ratio] 0.7 {ratio} Low 0.9-2.4 [facility] Comment on above: Order Comment: 200 Performed By: #### L 500.4050 ####[facility] [address] [place], [address] ALK PHOS 117 U/L High 35-104 [facility] Comment on above: Order Comment: 200 Performed By: #### L 500.4050 ####[facility] [address] [place], [address] ALT [Catalytic activity/Vol] 63 U/L High <=34 [facility] Comment on above: Order Comment: 200 Performed By: #### L 500.4050 ####[facility] [address] [place], [address] AST [Catalytic activity/Vol] 76 U/L High <=31 [facility] Comment on above: Order Comment: 200 Performed By: #### L 500.4050 ####[facility] [address] [place], [address] Bilirubin [Mass/Vol] 0.31 mg/dL Normal 0.00-1.30 [facility] Comment on above: Order Comment: 200 Performed By: #### L 500.4050 ####[facility] [address] [place], [address] BUN/CRE 39.3 RATIO High 10-20 [facility] Comment on above: Order Comment: 200 Performed By: #### L 500.4050 ####[facility] [address] [place], [address] Calcium [Mass/Vol] 9.4 mg/dL Normal 7.6-11.0 [facility] Comment on above: Order Comment: 200 Performed By: #### L 500.4050 ####[facility] [address] [place], [address] Chloride [Moles/Vol] 94 mmol/L Low 98-108 [facility] Comment on above: Order Comment: 200 Performed By: #### L 500.4050 ####[facility] [address] [place], [address] CO2 [Moles/Vol] 28.1 mmol/L Normal 21.0-32.0 [facility] Comment on above: Order Comment: 200 Performed By: #### L 500.4050 ####[facility] [address] [place], [address] Creatinine [Mass/Vol] 1.24 mg/dL High 0.70-1.20 [facility] Comment on above: Order Comment: 200 Performed By: #### L 500.4050 ####[facility] [address] [place], [address] GAP 11 Normal 5-15 [facility] Comment on above: Order Comment: 200 Performed By: #### L 500.4050 ####[facility] [address] [place], [address] GFR/1.73 sq M.predicted among non-blacks MDRD (S/P/Bld) [Vol rate/Area] 49 mL/min/{1.73_m2} Low >60 [facility] Comment on above: Order Comment: 200 Result Comment: mL/m in/1.73m2 CKD-EPI Creatinine Equation (2020) Performed By: #### L 500.4050 ####[facility] [address] [place], [address] Globulin (S) [Mass/Vol] 4.4 g/dL High 2.2-4.2 [facility] Comment on above: Order Comment: 200 Performed By: #### L 500.4050 ####[facility] [address] [place], [address] Glucose [Mass/Vol] 167 mg/dL High 70-99 [facility] Comment on above: Order Comment: 200 Performed By: #### L 500.4050 ####[facility] [address] [place], [address] Potassium [Moles/Vol] 5.1 mmol/L Normal 3.3-5.1 [facility] Comment on above: Order Comment: 200 Performed By: #### L 500.4050 ####[facility] [address] [place], [address] Sodium [Moles/Vol] 133 mmol/L Normal 133-145 [facility] Comment on above: Order Comment: 200 Performed By: #### L 500.4050 ####[facility] [address] [place], [address] T PROT 7.3 g/dL Normal 5.9-8.4 [facility] Comment on above: Order Comment: 200 Performed By: #### L 500.4050 ####[facility] [address] [place], [address] Urea nitrogen [Mass/Vol] 49 mg/dL High 4-19 [facility] Comment on above: Order Comment: 200 Performed By: #### L 500.4050 ####[facility] [address] [place], [address] Glomerular filtration rate ( GFR) estimation/1.73 sq m using serum, plasma, or whole bOrdered By: Millie Massey on 09-18-2024 GFR/1.73 sq M.predicted among non-blacks MDRD (S/P/Bld) [Vol rate/Area] 49 mL/min/{1.73_m2} Low >60 [facility] No Panel InformationOrdered By: Millie Massey on 09-18-2024 76 U/L High <32 [facility] Potassium measurement (mass/ volume)Ordered By: Millie Massey on 09-18-2024 Potassium (Unsp spec) [Mass/Vol] 5.1 mmol/L 3.3-5.1 [facility] Serum creatinine measurement (mass/volume)Ordered By: Millie Massey on 09-18-2024 Creatinine [Mass/Vol] 1.24 mg/dL High 0.70-1.20 [facility] Serum globulin measurementOr dered By: Millie Massey on 09-18-2024 Globulin (S) [Mass/Vol] 4.4 g/dL High 2.2-4.2 [facility] Serum glucose measurement (m ass/volume)Ordered By: Millie Massey on 09-18-2024 Glucose [Mass/Vol] 167 mg/dL High 70-99 [facility] Serum or plasma alanine camargo otransferase (ALT) measurementOrdered By: Millie Massey on 09-18-2024 ALT [Catalytic activity/Vol] 63 U/L High <35 [facility] Serum or plasma albumin megan urement (mass/volume)Ordered By: Millie Massey on 09-18-2024 Albumin [Mass/Vol] 2.9 g/dL Low 3.4-4.8 [facility] Serum or plasma albumin/glob ulin mass ratioOrdered By: Millie Massey on 09-18-2024 Albumin/Globulin [Mass ratio] 0.7 {ratio} Low 0.9-2.4 [facility] Serum or plasma alkaline susan sphatase measurementOrdered By: Millie Massey on 09-18-2024 ALP [Catalytic activity/Vol] 117 U/L High 35-104 [facility] Serum or plasma calcium megan urement (mass/volume)Ordered By: Millie Massey on 09-18-2024 Calcium [Mass/Vol] 9.4 mg/dL 7.6-11.0 [facility] Serum or plasma urea nitroge n measurement (mass/volume)Ordered By: Millie Massey on 09-18-2024 Urea nitrogen [Mass/Vol] 49 mg/dL High 4-19 [facility] Sodium levelOrdered By: Silvana Massey on 09-18-2024 Sodium [Moles/Vol] 133 mmol/L 133-145 [facility] Total proteinOrdered By: Lesli Massey on 09-18-2024 Protein [Mass/Vol] 7.3 g/dL 5.9-8.4 [facility] Anion gap in Serum or Plasma Ordered By: Millie Massey on 09-16-2024 Anion gap [Moles/Vol] 12 mmol/L 5-15 [facility] BUN/creatinine ratioOrdered By: Millie Massey on 09-16-2024 Urea nitrogen/Creatinine [Mass ratio] 36.5 mg/mg High 10-20 [facility] Bilirubin, totalOrdered By: Millie Massey on 09-16-2024 Bilirubin [Mass/Vol] 0.42 mg/dL 0.00-1.30 [facility] CBC-Complete Blood Cnt No Di ffon 09-16-2024 Erythrocyte distribution width (RBC) [Ratio] 19.6 % High 11.6-14.6 [facility] Comment on above: Performed By: #### L 100.0500, L500.4050 ####[facility] [address] [place], [address] Hematocrit (Bld) [Volume fraction] 29.2 % Low 37-47 [facility] Comment on above: Performed By: #### L 100.0500, L500.4050 ####[facility] [address] [place], [address] Hemoglobin (Bld) [Mass/Vol] 8.4 g/dL Low 12.0-15.0 [facility] Comment on above: Performed By: #### L 100.0500, L500.4050 ####[facility] [address] [place], [address] MCH (RBC) [Entitic mass] 26.8 pg Low 27.0-32.0 [facility] Comment on above: Performed By: #### L 100.0500, L500.4050 ####[facility] [address] [place], [address] MCHC (RBC) [Mass/Vol] 28.8 g/dL Low 32-36 [facility] Comment on above: Performed By: #### L 100.0500, L500.4050 ####[facility] [address] [place], [address] MCV (RBC) [Entitic vol] 93.3 fL Normal 81-99 [facility] Comment on above: Performed By: #### L 100.0500, L500.4050 ####[facility] [address] [place], [address] Platelet mean volume (Bld) [Entitic vol] 10.4 fL Normal 6.2-12.0 [facility] Comment on above: Performed By: #### L 100.0500, L500.4050 ####[facility] [address] [place], [address] Platelets (Bld) [#/Vol] 180 10*3/uL Normal 150-450 [facility] Comment on above: Performed By: #### L 100.0500, L500.4050 ####[facility] [address] [place], [address] RBC (Bld) [#/Vol] 3.13 10*6/uL Low 4.2-5.4 [facility] Comment on above: Performed By: #### L 100.0500, L500.4050 ####[facility] [address] [place], [address] RDW SD 65.9 fl High 35.1-43.9 [facility] Comment on above: Performed By: #### L 100.0500, L500.4050 ####[facility] [address] [place], [address] WBC (Bld) [#/Vol] 7.5 10*3/uL Normal 4.4-11.0 [facility] Comment on above: Performed By: #### L 100.0500, L500.4050 ####[facility] [address] [place], [address] Carbon dioxide, total [Moles /volume] in Central venous bloodOrdered By: Millie Massey on 09-16-2024 CO2 [Moles/Vol] 24.4 mmol/L 21.0-32.0 [facility] Chloride assayOrdered By: Carter Massey on 09-16-2024 Chloride [Moles/Vol] 94 mmol/L Low 98-108 [facility] Comprehensive Metabolic Prof ilon 09-16-2024 Albumin [Mass/Vol] 2.8 g/dL Low 3.4-4.8 [facility] Comment on above: Performed By: #### L 100.0500, L500.4050 ####[facility] [address] [place], [address] Albumin/Globulin [Mass ratio] 0.6 {ratio} Low 0.9-2.4 [facility] Comment on above: Performed By: #### L 100.0500, L500.4050 ####[facility] [address] [place], [address] ALK PHOS 126 U/L High 35-104 [facility] Comment on above: Performed By: #### L 100.0500, L500.4050 ####[facility] [address] [place], [address] ALT [Catalytic activity/Vol] 93 U/L High <=34 [facility] Comment on above: Performed By: #### L 100.0500, L500.4050 ####[facility] [address] [place], [address] AST [Catalytic activity/Vol] 130 U/L High <=31 [facility] Comment on above: Result Comment: Hemo lysis present, Results??could be affected.?? Performed By: #### L 100.0500, L500.4050 ####[facility] [address] [place], [address] Bilirubin [Mass/Vol] 0.42 mg/dL Normal 0.00-1.30 [facility] Comment on above: Performed By: #### L 100.0500, L500.4050 ####[facility] [address] [place], [address] BUN/CRE 36.5 RATIO High 10-20 [facility] Comment on above: Performed By: #### L 100.0500, L500.4050 ####[facility] [address] [place], [address] Calcium [Mass/Vol] 9.8 mg/dL Normal 7.6-11.0 [facility] Comment on above: Performed By: #### L 100.0500, L500.4050 ####[facility] [address] [place], [address] Chloride [Moles/Vol] 94 mmol/L Low 98-108 [facility] Comment on above: Performed By: #### L 100.0500, L500.4050 ####[facility] [address] [place], [address] CO2 [Moles/Vol] 24.4 mmol/L Normal 21.0-32.0 [facility] Comment on above: Performed By: #### L 100.0500, L500.4050 ####[facility] [address] [place], [address] Creatinine [Mass/Vol] 1.46 mg/dL High 0.70-1.20 [facility] Comment on above: Performed By: #### L 100.0500, L500.4050 ####[facility] [address] [place], [address] GAP 12 Normal 5-15 [facility] Comment on above: Performed By: #### L 100.0500, L500.4050 ####[facility] [address] [place], [address] GFR/1.73 sq M.predicted among non-blacks MDRD (S/P/Bld) [Vol rate/Area] 40 mL/min/{1.73_m2} Low >60 [facility] Comment on above: Result Comment: mL/m in/1.73m2 CKD-EPI Creatinine Equation (2020) Performed By: #### L 100.0500, L500.4050 ####[facility] [address] [place], [address] Globulin (S) [Mass/Vol] 5.0 g/dL High 2.2-4.2 [facility] Comment on above: Performed By: #### L 100.0500, L500.4050 ####[facility] [address] [place], [address] Glucose [Mass/Vol] 85 mg/dL Normal 70-99 [facility] Comment on above: Performed By: #### L 100.0500, L500.4050 ####[facility] [address] [place], [address] Potassium [Moles/Vol] 4.8 mmol/L Normal 3.3-5.1 [facility] Comment on above: Result Comment: Hemo lysis present, Results??could be affected.?? Performed By: #### L 100.0500, L500.4050 ####[facility] [address] [place], [address] Sodium [Moles/Vol] 130 mmol/L Low 133-145 [facility] Comment on above: Performed By: #### L 100.0500, L500.4050 ####[facility] [address] [place], [address] T PROT 7.7 g/dL Normal 5.9-8.4 [facility] Comment on above: Performed By: #### L 100.0500, L500.4050 ####[facility] [address] [place], [address] Urea nitrogen [Mass/Vol] 53 mg/dL High 4-19 [facility] Comment on above: Performed By: #### L 100.0500, L500.4050 ####[facility] [address] [place], [address] Erythrocyte distribution wid th ratioOrdered By: Millie Massey on 09-16-2024 Erythrocyte distribution width (RBC) [Ratio] 19.6 % High 11.6-14.6 [facility] Erythrocyte distribution wid th standard deviationOrdered By: Millie Massey on 09-16-2024 Erythrocyte distribution width (RBC) [Ratio] 65.9 fl High 35.1-43.9 [facility] Glomerular filtration rate ( GFR) estimation/1.73 sq m using serum, plasma, or whole bOrdered By: Millie Massey on 09-16-2024 GFR/1.73 sq M.predicted among non-blacks MDRD (S/P/Bld) [Vol rate/Area] 40 mL/min/{1.73_m2} Low >60 [facility] Hematocrit Auto (Bld) [Volum e fraction]Ordered By: Millie Massey on 09-16-2024 Hematocrit (Bld) [Volume fraction] 29.2 % Low 37-47 [facility] Hemoglobin measurementOrdere d By: Millie Massey on 09-16-2024 Hemoglobin (Bld) [Mass/Vol] 8.4 g/dL Low 12.0-15.0 [facility] MCV (mean corpuscular volume ) determinationOrdered By: Millie Massey on 09-16-2024 MCV (RBC) [Entitic vol] 93.3 fL 81-99 [facility] Mean corpuscular hemoglobin (MCH) determinationOrdered By: Millie Massey on 09-16-2024 MCH (RBC) [Entitic mass] 26.8 pg Low 27.0-32.0 [facility] No Panel InformationOrdered By: Millie Massey on 09-16-2024 130 U/L High <32 [facility] Platelet countOrdered By: Carter Massey on 09-16-2024 Platelets (Bld) [#/Vol] 180 10*3/uL 150-450 [facility] Potassium measurement (mass/ volume)Ordered By: Millie Massey on 09-16-2024 Potassium (Unsp spec) [Mass/Vol] 4.8 mmol/L 3.3-5.1 [facility] RBC Auto (Bld) [#/Vol]Ordere d By: Millie Massey on 09-16-2024 RBC (Bld) [#/Vol] 3.13 10*6/uL Low 4.2-5.4 [facility] Serum creatinine measurement (mass/volume)Ordered By: Millie Massey on 09-16-2024 Creatinine [Mass/Vol] 1.46 mg/dL High 0.70-1.20 [facility] Serum globulin measurementOr dered By: Millie Massey on 09-16-2024 Globulin (S) [Mass/Vol] 5.0 g/dL High 2.2-4.2 [facility] Serum glucose measurement (m ass/volume)Ordered By: Millie Massey on 09-16-2024 Glucose [Mass/Vol] 85 mg/dL 70-99 [facility] Serum or plasma alanine camargo otransferase (ALT) measurementOrdered By: Millie Massey on 09-16-2024 ALT [Catalytic activity/Vol] 93 U/L High <35 [facility] Serum or plasma albumin megan urement (mass/volume)Ordered By: Millie Massey on 09-16-2024 Albumin [Mass/Vol] 2.8 g/dL Low 3.4-4.8 [facility] Serum or plasma albumin/glob ulin mass ratioOrdered By: Millie Massey on 09-16-2024 Albumin/Globulin [Mass ratio] 0.6 {ratio} Low 0.9-2.4 [facility] Serum or plasma alkaline susan sphatase measurementOrdered By: Millie Massey on 09-16-2024 ALP [Catalytic activity/Vol] 126 U/L High 35-104 [facility] Serum or plasma calcium megan urement (mass/volume)Ordered By: Millie Massey on 09-16-2024 Calcium [Mass/Vol] 9.8 mg/dL 7.6-11.0 [facility] Serum or plasma urea nitroge n measurement (mass/volume)Ordered By: Millie Massey on 09-16-2024 Urea nitrogen [Mass/Vol] 53 mg/dL High 4-19 [facility] Sodium levelOrdered By: Silvana Massey on 09-16-2024 Sodium [Moles/Vol] 130 mmol/L Low 133-145 [facility] Total proteinOrdered By: Lelsi Massey on 09-16-2024 Protein [Mass/Vol] 7.7 g/dL 5.9-8.4 [facility] White blood cell (WBC) count Ordered By: Millie Massey on 09-16-2024 WBC (Bld) [#/Vol] 7.5 10*3/uL 4.4-11.0 [facility] 12 Lead EKGon 09-15-2024 12 Lead EKG Normal [facility] Absolute lymphocyte countOrd ered By: Constantin Jain on 09-15-2024 Lymphocytes Auto (Unsp spec) [#/Vol] 0.64 10*3/uL Low 0.83-4.51 [facility] Absolute neutrophil countOrd ered By: Constantin Jain on 09-15-2024 Absolute neutrophil count 7.8 X10^3/uL High 2.0-7.7 [facility] Anion gap [Moles/Vol]Ordered By: Constantin Jain on 09-15-2024 Anion gap in Serum or Plasma 10 5-15 [facility] Anion gap in Serum or Plasma Ordered By: Constantin Jain on 09-15-2024 Anion gap [Moles/Vol] 10 mmol/L 5-15 [facility] Automated lymphocyte count a s percentage of total leukocytesOrdered By: Constantin Jain on 09-15-2024 Lymphocytes/100 WBC Auto (Unsp spec) 6.9 % Low 19-41 [facility] BUN/creatinine ratioOrdered By: Constantin Jain on 09-15-2024 Urea nitrogen/Creatinine [Mass ratio] 34.6 mg/mg High - [facility] BUN/creatinine ratio 34.6 RATIO High - [facility] Basic Metabolic Profile (BMP )on 09-15-2024 BUN/CRE 34.6 RATIO High 03-17 [facility] Comment on above: Performed By: #### L 500.2500, L501.4021, L100.0100 ####[facility] [address] [place], [address] Calcium [Mass/Vol] 9.1 mg/dL Normal 7.6-11.0 [facility] Comment on above: Performed By: #### L 500.2500, L501.4021, L100.0100 ####[facility] [address] [place], [address] Chloride [Moles/Vol] 96 mmol/L Low 98-108 [facility] Comment on above: Performed By: #### L 500.2500, L501.4021, L100.0100 ####[facility] [address] [place], [address] CO2 [Moles/Vol] 27.3 mmol/L Normal 21.0-32.0 [facility] Comment on above: Performed By: #### L 500.2500, L501.4021, L100.0100 ####[facility] [address] [place], [address] Creatinine [Mass/Vol] 1.14 mg/dL Normal 0.70-1.20 [facility] Comment on above: Performed By: #### L 500.2500, L501.4021, L100.0100 ####[facility] [address] [place], [address] ECRCL 44.59 ml/min Low 50-250 [facility] Comment on above: Performed By: #### L 500.2500, L501.4021, L100.0100 ####[facility] [address] [place], [address] GAP 10 Normal 5-15 [facility] Comment on above: Performed By: #### L 500.2500, L501.4021, L100.0100 ####[facility] [address] [place], [address] GFR/1.73 sq M.predicted among non-blacks MDRD (S/P/Bld) [Vol rate/Area] 54 mL/min/{1.73_m2} Low >60 [facility] Comment on above: Result Comment: mL/m in/1.73m2 CKD-EPI Creatinine Equation (2020) Performed By: #### L 500.2500, L501.4021, L100.0100 ####[facility] [address] [place], [address] Glucose [Mass/Vol] 103 mg/dL High 70-99 [facility] Comment on above: Performed By: #### L 500.2500, L501.4021, L100.0100 ####[facility] [address] [place], [address] Potassium [Moles/Vol] 4.3 mmol/L Normal 3.3-5.1 [facility] Comment on above: Result Comment: Hemo lysis present, Results??could be affected.?? Performed By: #### L 500.2500, L501.4021, L100.0100 ####[facility] [address] [place], [address] Sodium [Moles/Vol] 133 mmol/L Normal 133-145 [facility] Comment on above: Performed By: #### L 500.2500, L501.4021, L100.0100 ####[facility] [address] [place], [address] Urea nitrogen [Mass/Vol] 40 mg/dL High 4-19 [facility] Comment on above: Performed By: #### L 500.2500, L501.4021, L100.0100 ####[facility] [address] [place], [address] Basophil percentageOrdered B y: Constantin Jain on 09-15-2024 Basophils/100 WBC (Bld) 0.3 % 0-1 [facility] Basophil percentage 0.3 % 0-1 [facility] CBC W/Diff, Automatedon 08-28-2024 Absolute Lymph 0.64 X10 3/uL Low 0.83-4.51 [facility] Comment on above: Performed By: #### L 500.2500, L501.4021, L100.0100 ####[facility] [address] [place], [address] Absolute Neut 7.8 X10 3/uL High 2.0-7.7 [facility] Comment on above: Performed By: #### L 500.2500, L501.4021, L100.0100 ####[facility] [address] [place], [address] Basophils/100 WBC (Bld) 0.3 % Normal 0-1 [facility] Comment on above: Performed By: #### L 500.2500, L501.4021, L100.0100 ####[facility] [address] [place], [address] Eosinophils/100 WBC (Bld) 1.5 % Normal 0-5 [facility] Comment on above: Performed By: #### L 500.2500, L501.4021, L100.0100 ####[facility] [address] [place], [address] Erythrocyte distribution width (RBC) [Ratio] 19.0 % High 11.6-14.6 [facility] Comment on above: Performed By: #### L 500.2500, L501.4021, L100.0100 ####[facility] [address] [place], [address] Hematocrit (Bld) [Volume fraction] 27.5 % Low 37-47 [facility] Comment on above: Performed By: #### L 500.2500, L501.4021, L100.0100 ####[facility] [address] [place], [address] Hemoglobin (Bld) [Mass/Vol] 8.3 g/dL Low 12.0-15.0 [facility] Comment on above: Performed By: #### L 500.2500, L501.4021, L100.0100 ####[facility] [address] [place], [address] IG% 1.100 High 0.0-0.9 [facility] Comment on above: Result Comment: IG% - Immature Granulocytes (promyelocytes, myelocytes andmetamyelocytes) > 1% indicates that a LEFT SHIFT is Present. Performed By: #### L 500.2500, L501.4021, L100.0100 ####[facility] [address] [place], [address] Lymphocytes/100 WBC (Bld) 6.9 % Low 19-41 [facility] Comment on above: Performed By: #### L 500.2500, L501.4021, L100.0100 ####[facility] [address] [place], [address] MCH (RBC) [Entitic mass] 27.5 pg Normal 27.0-32.0 [facility] Comment on above: Performed By: #### L 500.2500, L501.4021, L100.0100 ####[facility] [address] [place], [address] MCHC (RBC) [Mass/Vol] 30.2 g/dL Low 32-36 [facility] Comment on above: Performed By: #### L 500.2500, L501.4021, L100.0100 ####[facility] [address] [place], [address] MCV (RBC) [Entitic vol] 91.1 fL Normal 81-99 [facility] Comment on above: Performed By: #### L 500.2500, L501.4021, L100.0100 ####[facility] [address] [place], [address] Monocytes/100 WBC (Bld) 6.1 % Normal 0-10 [facility] Comment on above: Performed By: #### L 500.2500, L501.4021, L100.0100 ####[facility] [address] [place], [address] Neutrophils/100 WBC (Bld) 84.1 % High 47-70 [facility] Comment on above: Performed By: #### L 500.2500, L501.4021, L100.0100 ####[facility] [address] [place], [address] Nucleated RBC (Bld) [#/Vol] 0 10*3/uL Normal 0-5 [facility] Comment on above: Performed By: #### L 500.2500, L501.4021, L100.0100 ####[facility] [address] [place], [address] Platelet mean volume (Bld) [Entitic vol] 10.0 fL Normal 6.2-12.0 [facility] Comment on above: Performed By: #### L 500.2500, L501.4021, L100.0100 ####[facility] [address] [place], [address] Platelets (Bld) [#/Vol] 198 10*3/uL Normal 150-450 [facility] Comment on above: Performed By: #### L 500.2500, L501.4021, L100.0100 ####[facility] [address] [place], [address] RBC (Bld) [#/Vol] 3.02 10*6/uL Low 4.2-5.4 [facility] Comment on above: Performed By: #### L 500.2500, L501.4021, L100.0100 ####[facility] [address] [place], [address] RDW SD 62.7 fl High 35.1-43.9 [facility] Comment on above: Performed By: #### L 500.2500, L501.4021, L100.0100 ####[facility] [address] [place], [address] WBC (Bld) [#/Vol] 9.3 10*3/uL Normal 4.4-11.0 [facility] Comment on above: Performed By: #### L 500.2500, L501.4021, L100.0100 ####[facility] [address] [place], [address] Calcium [Mass/Vol]Ordered By : Constantin Jain on 09-15-2024 Serum or plasma calcium measurement (mass/volume) 9.1 mg/dL 7.6-11.0 [facility] Carbon dioxide, total [Moles /volume] in Central venous bloodOrdered By: Constantin Jain on 09-15-2024 CO2 [Moles/Vol] 27.3 mmol/L 21.0-32.0 [facility] Carbon dioxide, total [Moles/volume] in Central venous blood 27.3 mmol/L 21.0-32.0 [facility] Chest 1 View (Portable)on Chest 1 View (Portable) Normal [facility] Chloride assayOrdered By: Tacos Jain on 09-15-2024 Chloride [Moles/Vol] 96 mmol/L Low 98-108 [facility] Chloride assay 96 mmol/L Low 98-108 [facility] Creatinine [Mass/Vol]Ordered By: Constantin Jain on 09-15-2024 Serum creatinine measurement (mass/volume) 1.14 mg/dL 0.70-1.20 [facility] Emergency Department Summary on 09-15-2024 Emergency Department Summary Normal [facility] Eosinophil percentageOrdered By: Constantin Jain on 09-15-2024 Eosinophils/100 WBC (Bld) 1.5 % 0-5 [facility] Eosinophil percentage 1.5 % 0-5 [facility] Erythrocyte distribution wid th (RBC) [Ratio]Ordered By: Constantin Jain on 09-15-2024 Erythrocyte distribution width ratio 19.0 % High 11.6-14.6 [facility] Erythrocyte distribution width standard deviation 62.7 fl High 35.1-43.9 [facility] Erythrocyte distribution wid th ratioOrdered By: Constantin Jain on 09-15-2024 Erythrocyte distribution width (RBC) [Ratio] 19.0 % High 11.6-14.6 [facility] Erythrocyte distribution wid th standard deviationOrdered By: Constantin Jain on 09-15-2024 Erythrocyte distribution width (RBC) [Ratio] 62.7 fl High 35.1-43.9 [facility] Estimation of creatinine austen aranceOrdered By: Constantin Jain on 09-15-2024 Estimation of creatinine clearance 44.59 ml/min Low 50-250 [facility] GFR/1.73 sq M.predicted víctor g non-blacks MDRD (S/P/Bld) [Vol rate/Area]Ordered By: Constantin Jain on 09-15-2024 Glomerular filtration rate (GFR) estimation/1.73 sq m using serum, plasma, or whole b 54 Low >60 [facility] Glomerular filtration rate ( GFR) estimation/1.73 sq m using serum, plasma, or whole bOrdered By: Constantin Jain on 09-15-2024 GFR/1.73 sq M.predicted among non-blacks MDRD (S/P/Bld) [Vol rate/Area] 54 mL/min/{1.73_m2} Low >60 [facility] Glucose [Mass/Vol]Ordered By : Constantin Jain on 09-15-2024 Serum glucose measurement (mass/volume) 103 mg/dL High 70-99 [facility] Hematocrit Auto (Bld) [Volum e fraction]Ordered By: Constantin Jain on 09-15-2024 Hematocrit (Bld) [Volume fraction] 27.5 % Low 37-47 [facility] Automated blood hematocrit (percentage) 27.5 % Low 37-47 [facility] Hemoglobin measurementOrdere d By: Constantin Jain on 09-15-2024 Hemoglobin (Bld) [Mass/Vol] 8.3 g/dL Low 12.0-15.0 [facility] Hemoglobin measurement 8.3 g/dL Low 12.0-15.0 [facility] Immature granulocytes/100 WB C Auto (Bld)Ordered By: Constantin Jain on 09-15-2024 Immature granulocytes/100 WBC (Bld) 1.100 % High 0.0-0.9 [facility] Automated immature granulocyte percentage 1.100 % High 0.0-0.9 [facility] L499.0042on 09-15-2024 Trop T High Sen 273 ng/L Invalid Interpretation Code <=14 [facility] Comment on above: Result Comment: Crit ical Result(s) Called to Tu MEJIA (ER): Fausto:??Results read back by same. Performed By: #### L 499.0042 ####[facility] [address] [place], [address] L499.0043on 09-15-2024 Trop T High Sen Normal <=14 [facility] Comment on above: Result Comment: Canc elled via OM: Order cancelled - Patient discharged Performed By: #### L 499.0043 ####[facility] [address] [place], [address] L501.4021on 09-15-2024 Trop T High Sen 256 ng/L Invalid Interpretation Code <=14 [facility] Comment on above: Result Comment: Crit ical Result(s) Called at: 0515 by:??WALTER HAVEN TO LEXISCHAFER Results read back by same. Performed By: #### L 500.2500, L501.4021, L100.0100 ####[facility] [address] [place], [address] Lymphocytes Auto (Unsp spec) [#/Vol]Ordered By: Constantin Jain on 09-15-2024 Absolute lymphocyte count 0.64 X10^3/uL Low 0.83-4.51 [facility] Lymphocytes/100 WBC Auto (Un sp spec)Ordered By: Constantin Jain on 09-15-2024 Automated lymphocyte count as percentage of total leukocytes 6.9 % Low 19-41 [facility] MCV (RBC) [Entitic vol]Order ed By: Constantin Jain on 09-15-2024 MCV (mean corpuscular volume) determination 91.1 fL 81-99 [facility] MCV (mean corpuscular volume ) determinationOrdered By: Constantin Jain on 09-15-2024 MCV (RBC) [Entitic vol] 91.1 fL 81-99 [facility] Mean corpuscular hemoglobin (MCH) determinationOrdered By: Constantin Jain on 09-15-2024 MCH (RBC) [Entitic mass] 27.5 pg 27.0-32.0 [facility] Mean corpuscular hemoglobin (MCH) determination 27.5 pg 27.0-32.0 [facility] Mean corpuscular hemoglobin concentration (MCHC) determinationOrdered By: Constantin Jain on 09-15-2024 Mean corpuscular hemoglobin concentration (MCHC) determination 30.2 g/dL Low 32-36 [facility] Mean platelet volume determi nationOrdered By: Constantin Jain on 09-15-2024 Mean platelet volume determination 10.0 fl 6.2-12.0 [facility] Monocyte percentageOrdered B y: Constantin Jain on 09-15-2024 Monocytes/100 WBC (Bld) 6.1 % 0-10 [facility] Monocyte percentage 6.1 % 0-10 [facility] Neutrophil percentageOrdered By: Constantin Jain on 09-15-2024 Neutrophils/100 WBC (Bld) 84.1 % High 47-70 [facility] Neutrophil percentage 84.1 % High 47-70 [facility] Nucleated red blood cell per centageOrdered By: Constantin Jain on 09-15-2024 Nucleated red blood cell percentage 0 % 0-5 [facility] Platelet countOrdered By: Tacos Jain on 09-15-2024 Platelets (Bld) [#/Vol] 198 10*3/uL 150-450 [facility] Platelet count 198 K/mm3 150-450 [facility] Potassium (Unsp spec) [Mass/ Vol]Ordered By: Constantin Jain on 09-15-2024 Potassium measurement (mass/volume) 4.3 mmol/L 3.3-5.1 [facility] Potassium measurement (mass/ volume)Ordered By: Constantin Jain on 09-15-2024 Potassium (Unsp spec) [Mass/Vol] 4.3 mmol/L 3.3-5.1 [facility] RBC Auto (Bld) [#/Vol]Ordere d By: Constantin Jain on 09-15-2024 RBC (Bld) [#/Vol] 3.02 10*6/uL Low 4.2-5.4 [facility] Automated blood erythrocyte count 3.02 M/mm3 Low 4.2-5.4 [facility] Serum creatinine measurement (mass/volume)Ordered By: Constantin Jain on 09-15-2024 Creatinine [Mass/Vol] 1.14 mg/dL 0.70-1.20 [facility] Serum glucose measurement (m ass/volume)Ordered By: Constantin Jain on 09-15-2024 Glucose [Mass/Vol] 103 mg/dL High 70-99 [facility] Serum or plasma calcium megan urement (mass/volume)Ordered By: Constantin Jain on 09-15-2024 Calcium [Mass/Vol] 9.1 mg/dL 7.6-11.0 [facility] Serum or plasma urea nitroge n measurement (mass/volume)Ordered By: Constantin Jain on 09-15-2024 Urea nitrogen [Mass/Vol] 40 mg/dL High - [facility] Sodium levelOrdered By: Nile Jain on 09-15-2024 Sodium [Moles/Vol] 133 mmol/L 133-145 [facility] Sodium level 133 mmol/L 133-145 [facility] Troponin T.cardiac High sens itivity method [Mass/Vol]Ordered By: Constantin Jain on 09-15-2024 Troponin T.cardiac [Mass/volume] in Serum or Plasma by High sensitivity method 273 ng/L High <14 [facility] Troponin T.cardiac [Mass/volume] in Serum or Plasma by High sensitivity method 256 ng/L High <14 [facility] Troponin T.cardiac [Mass/vol ume] in Serum or Plasma by High sensitivity methodOrdered By: Constantin Jain on 09-15-2024 Troponin T.cardiac High sensitivity method [Mass/Vol] 273 ng/L High <14 [facility] Troponin T.cardiac High sensitivity method [Mass/Vol] 256 ng/L High <14 [facility] Urea nitrogen [Mass/Vol]Orde red By: Constantin Jain on 09-15-2024 Serum or plasma urea nitrogen measurement (mass/volume) 40 mg/dL High 09-14 [facility] White blood cell (WBC) count Ordered By: Constantin Jain on 09-15-2024 WBC (Bld) [#/Vol] 9.3 10*3/uL 4.4-11.0 [facility] White blood cell (WBC) count 9.3 K/mm3 4.4-11.0 [facility] ALP [Catalytic activity/Vol] Ordered By: Millie Massey on 09-09-2024 Serum or plasma alkaline phosphatase measurement 93 U/L 35-104 [facility] ALT [Catalytic activity/Vol] Ordered By: Millie Massey on 09-09-2024 Serum or plasma alanine aminotransferase (ALT) measurement 26 U/L <35 [facility] Albumin [Mass/Vol]Ordered By : Millie Massey on 09-09-2024 Serum or plasma albumin measurement (mass/volume) 2.4 g/dL Low 3.4-4.8 [facility] Albumin/Globulin [Mass ratio ]Ordered By: Millie Massey on 09-09-2024 Serum or plasma albumin/globulin mass ratio 0.6 RATIO Low 0.9-2.4 [facility] Anion gap [Moles/Vol]Ordered By: Millie Massey on 09-09-2024 Anion gap in Serum or Plasma 8 10-10 [facility] Anion gap in Serum or Plasma Ordered By: Millie Massey on 09-09-2024 Anion gap [Moles/Vol] 8 mmol/L 10-10 [facility] BUN/creatinine ratioOrdered By: Millie Massey on 09-09-2024 Urea nitrogen/Creatinine [Mass ratio] 36.3 mg/mg High 03-17 [facility] BUN/creatinine ratio 36.3 RATIO High 03-17 [facility] Bilirubin, totalOrdered By: Millie Massey on 09-09-2024 Bilirubin [Mass/Vol] 0.24 mg/dL 0.00-1.30 [facility] Bilirubin, total 0.24 mg/dL 0.00-1.30 [facility] CBC-Complete Blood Cnt No Di ffon 09-09-2024 Erythrocyte distribution width (RBC) [Ratio] 18.6 % High 11.6-14.6 [facility] Comment on above: Performed By: #### L 100.0500, L501.5200, L500.4050 ####[facility] [address] [place], [address] Hematocrit (Bld) [Volume fraction] 31.4 % Low 37-47 [facility] Comment on above: Performed By: #### L 100.0500, L501.5200, L500.4050 ####[facility] [address] [place], [address] Hemoglobin (Bld) [Mass/Vol] 9.4 g/dL Low 12.0-15.0 [facility] Comment on above: Performed By: #### L 100.0500, L501.5200, L500.4050 ####[facility] [address] [place], [address] MCH (RBC) [Entitic mass] 27.0 pg Normal 27.0-32.0 [facility] Comment on above: Performed By: #### L 100.0500, L501.5200, L500.4050 ####[facility] [address] [place], [address] MCHC (RBC) [Mass/Vol] 29.9 g/dL Low 32-36 [facility] Comment on above: Performed By: #### L 100.0500, L501.5200, L500.4050 ####[facility] [address] [place], [address] MCV (RBC) [Entitic vol] 90.2 fL Normal 81-99 [facility] Comment on above: Performed By: #### L 100.0500, L501.5200, L500.4050 ####[facility] [address] [place], [address] Platelet mean volume (Bld) [Entitic vol] 10.1 fL Normal 6.2-12.0 [facility] Comment on above: Performed By: #### L 100.0500, L501.5200, L500.4050 ####[facility] [address] [place], [address] Platelets (Bld) [#/Vol] 183 10*3/uL Normal 150-450 [facility] Comment on above: Performed By: #### L 100.0500, L501.5200, L500.4050 ####[facility] [address] [place], [address] RBC (Bld) [#/Vol] 3.48 10*6/uL Low 4.2-5.4 [facility] Comment on above: Performed By: #### L 100.0500, L501.5200, L500.4050 ####[facility] [address] [place], [address] RDW SD 61.3 fl High 35.1-43.9 [facility] Comment on above: Performed By: #### L 100.0500, L501.5200, L500.4050 ####[facility] [address] [place], [address] WBC (Bld) [#/Vol] 3.8 10*3/uL Low 4.4-11.0 [facility] Comment on above: Performed By: #### L 100.0500, L501.5200, L500.4050 ####[facility] [address] [place], [address] Calcium [Mass/Vol]Ordered By : Millie Massey on 09-09-2024 Serum or plasma calcium measurement (mass/volume) 8.8 mg/dL 7.6-11.0 [facility] Carbon dioxide, total [Moles /volume] in Central venous bloodOrdered By: Millie Massey on 09-09-2024 CO2 [Moles/Vol] 30.2 mmol/L 21.0-32.0 [facility] Carbon dioxide, total [Moles/volume] in Central venous blood 30.2 mmol/L 21.0-32.0 [facility] Chloride assayOrdered By: Carter Massey on 09-09-2024 Chloride [Moles/Vol] 96 mmol/L Low 98-108 [facility] Chloride assay 96 mmol/L Low 98-108 [facility] Comprehensive Metabolic Prof ilon 09-09-2024 Albumin [Mass/Vol] 2.4 g/dL Low 3.4-4.8 [facility] Comment on above: Performed By: #### L 100.0500, L501.5200, L500.4050 ####[facility] [address] [place], [address] Albumin/Globulin [Mass ratio] 0.6 {ratio} Low 0.9-2.4 [facility] Comment on above: Performed By: #### L 100.0500, L501.5200, L500.4050 ####[facility] [address], [address] ALK PHOS 93 U/L Normal 35-104 [facility] Comment on above: Performed By: #### L 100.0500, L501.5200, L500.4050 ####[facility] [address], [address] ALT [Catalytic activity/Vol] 26 U/L Normal <=34 [facility] Comment on above: Performed By: #### L 100.0500, L501.5200, L500.4050 ####[facility] [address] [place], [address] AST [Catalytic activity/Vol] 54 U/L High <=31 [facility] Comment on above: Performed By: #### L 100.0500, L501.5200, L500.4050 ####[facility] [address] [place], [address] Bilirubin [Mass/Vol] 0.24 mg/dL Normal 0.00-1.30 [facility] Comment on above: Performed By: #### L 100.0500, L501.5200, L500.4050 ####[facility] [address] [place], [address] BUN/CRE 36.3 RATIO High 10-20 [facility] Comment on above: Performed By: #### L 100.0500, L501.5200, L500.4050 ####[facility] [address] [place], [address] Calcium [Mass/Vol] 8.8 mg/dL Normal 7.6-11.0 [facility] Comment on above: Performed By: #### L 100.0500, L501.5200, L500.4050 ####[facility] [address] [place], [address] Chloride [Moles/Vol] 96 mmol/L Low 98-108 [facility] Comment on above: Performed By: #### L 100.0500, L501.5200, L500.4050 ####[facility] [address] [place], [address] CO2 [Moles/Vol] 30.2 mmol/L Normal 21.0-32.0 [facility] Comment on above: Performed By: #### L 100.0500, L501.5200, L500.4050 ####[facility] [address] [place], [address] Creatinine [Mass/Vol] 1.35 mg/dL High 0.70-1.20 [facility] Comment on above: Performed By: #### L 100.0500, L501.5200, L500.4050 ####[facility] [address] [place], [address] GAP 8 Normal 5-15 [facility] Comment on above: Performed By: #### L 100.0500, L501.5200, L500.4050 ####[facility] [address] [place], [address] GFR/1.73 sq M.predicted among non-blacks MDRD (S/P/Bld) [Vol rate/Area] 44 mL/min/{1.73_m2} Low >60 [facility] Comment on above: Result Comment: mL/m in/1.73m2 CKD-EPI Creatinine Equation (2020) Performed By: #### L 100.0500, L501.5200, L500.4050 ####[facility] [address] [place], [address] Globulin (S) [Mass/Vol] 3.7 g/dL Normal 2.2-4.2 [facility] Comment on above: Performed By: #### L 100.0500, L501.5200, L500.4050 ####[facility] [address] [place], [address] Glucose [Mass/Vol] 115 mg/dL High 70-99 [facility] Comment on above: Performed By: #### L 100.0500, L501.5200, L500.4050 ####[facility] [address] [place], [address] Potassium [Moles/Vol] 3.1 mmol/L Low 3.3-5.1 [facility] Comment on above: Performed By: #### L 100.0500, L501.5200, L500.4050 ####[facility] [address] [place], [address] Sodium [Moles/Vol] 133 mmol/L Normal 133-145 [facility] Comment on above: Performed By: #### L 100.0500, L501.5200, L500.4050 ####[facility] [address] [place], [address] T PROT 6.1 g/dL Normal 5.9-8.4 [facility] Comment on above: Performed By: #### L 100.0500, L501.5200, L500.4050 ####[facility] [address] [place], [address] Urea nitrogen [Mass/Vol] 49 mg/dL High 4-19 [facility] Comment on above: Performed By: #### L 100.0500, L501.5200, L500.4050 ####[facility] [address] [place], [address] Creatinine [Mass/Vol]Ordered By: Millie Massey on 09-09-2024 Serum creatinine measurement (mass/volume) 1.35 mg/dL High 0.70-1.20 [facility] Erythrocyte distribution wid th (RBC) [Ratio]Ordered By: Millie Massey on 09-09-2024 Erythrocyte distribution width ratio 18.6 % High 11.6-14.6 [facility] Erythrocyte distribution width standard deviation 61.3 fl High 35.1-43.9 [facility] Erythrocyte distribution wid th ratioOrdered By: Millie Massey on 09-09-2024 Erythrocyte distribution width (RBC) [Ratio] 18.6 % High 11.6-14.6 [facility] Erythrocyte distribution wid th standard deviationOrdered By: Millie Massey on 09-09-2024 Erythrocyte distribution width (RBC) [Ratio] 61.3 fl High 35.1-43.9 [facility] GFR/1.73 sq M.predicted víctor g non-blacks MDRD (S/P/Bld) [Vol rate/Area]Ordered By: Millie Massey on 09-09-2024 Glomerular filtration rate (GFR) estimation/1.73 sq m using serum, plasma, or whole b 44 Low >60 [facility] Glomerular filtration rate ( GFR) estimation/1.73 sq m using serum, plasma, or whole bOrdered By: Millie Massey on 09-09-2024 GFR/1.73 sq M.predicted among non-blacks MDRD (S/P/Bld) [Vol rate/Area] 44 mL/min/{1.73_m2} Low >60 [facility] Glucose [Mass/Vol]Ordered By : Millie Massey on 09-09-2024 Serum glucose measurement (mass/volume) 115 mg/dL High 70-99 [facility] Hematocrit Auto (Bld) [Volum e fraction]Ordered By: Millie Massey on 09-09-2024 Hematocrit (Bld) [Volume fraction] 31.4 % Low 37-47 [facility] Automated blood hematocrit (percentage) 31.4 % Low 37-47 [facility] Hemoglobin measurementOrdere d By: Millie Massey on 09-09-2024 Hemoglobin (Bld) [Mass/Vol] 9.4 g/dL Low 12.0-15.0 [facility] Hemoglobin measurement 9.4 g/dL Low 12.0-15.0 [facility] MCV (RBC) [Entitic vol]Order ed By: Millie Massey on 09-09-2024 MCV (mean corpuscular volume) determination 90.2 fL 81-99 [facility] MCV (mean corpuscular volume ) determinationOrdered By: Millie Massey on 09-09-2024 MCV (RBC) [Entitic vol] 90.2 fL 81-99 [facility] Magnesiumon 09-09-2024 Magnesium [Mass/Vol] 2.0 mg/dL Normal 1.5-2.2 [facility] Comment on above: Performed By: #### L 100.0500, L501.5200, L500.4050 ####[facility] [address] [place], [address] Magnesium (Unsp spec) [Mass/ Vol]Ordered By: Millie Massey on 09-09-2024 Magnesium measurement (mass/volume) 2.0 mg/dL 1.5-2.2 [facility] Magnesium measurement (mass/ volume)Ordered By: Millie Massey on 09-09-2024 Magnesium (Unsp spec) [Mass/Vol] 2.0 mg/dL 1.5-2.2 [facility] Mean corpuscular hemoglobin (MCH) determinationOrdered By: Millie Massey on 09-09-2024 MCH (RBC) [Entitic mass] 27.0 pg 27.0-32.0 [facility] Mean corpuscular hemoglobin (MCH) determination 27.0 pg 27.0-32.0 [facility] Mean corpuscular hemoglobin concentration (MCHC) determinationOrdered By: Millie Massey on 09-09-2024 Mean corpuscular hemoglobin concentration (MCHC) determination 29.9 g/dL Low 32-36 [facility] Mean platelet volume determi nationOrdered By: Millie Massey on 09-09-2024 Mean platelet volume determination 10.1 fl 6.2-12.0 [facility] No Panel InformationOrdered By: Millie Massey on 09-09-2024 54 U/L High <32 [facility] Platelet countOrdered By: Carter Massey on 09-09-2024 Platelets (Bld) [#/Vol] 183 10*3/uL 150-450 [facility] Platelet count 183 K/mm3 150-450 [facility] Potassium (Unsp spec) [Mass/ Vol]Ordered By: Millie Massey on 09-09-2024 Potassium measurement (mass/volume) 3.1 mmol/L Low 3.3-5.1 [facility] Potassium measurement (mass/ volume)Ordered By: Millie Massey on 09-09-2024 Potassium (Unsp spec) [Mass/Vol] 3.1 mmol/L Low 3.3-5.1 [facility] RBC Auto (Bld) [#/Vol]Ordere d By: Millie Massey on 09-09-2024 RBC (Bld) [#/Vol] 3.48 10*6/uL Low 4.2-5.4 [facility] Automated blood erythrocyte count 3.48 M/mm3 Low 4.2-5.4 [facility] Serum creatinine measurement (mass/volume)Ordered By: Millie Massey on 09-09-2024 Creatinine [Mass/Vol] 1.35 mg/dL High 0.70-1.20 [facility] Serum globulin measurementOr dered By: Millie Massey on 09-09-2024 Globulin (S) [Mass/Vol] 3.7 g/dL 2.2-4.2 [facility] Serum globulin measurement 3.7 g/dL 2.2-4.2 [facility] Serum glucose measurement (m ass/volume)Ordered By: Millie Massey on 09-09-2024 Glucose [Mass/Vol] 115 mg/dL High 70-99 [facility] Serum or plasma alanine camargo otransferase (ALT) measurementOrdered By: Millie Massey on 09-09-2024 ALT [Catalytic activity/Vol] 26 U/L <35 [facility] Serum or plasma albumin megan urement (mass/volume)Ordered By: Millie Massey on 09-09-2024 Albumin [Mass/Vol] 2.4 g/dL Low 3.4-4.8 [facility] Serum or plasma albumin/glob ulin mass ratioOrdered By: Millie Massey on 09-09-2024 Albumin/Globulin [Mass ratio] 0.6 {ratio} Low 0.9-2.4 [facility] Serum or plasma alkaline susan sphatase measurementOrdered By: Millie Massey on 09-09-2024 ALP [Catalytic activity/Vol] 93 U/L 35-104 [facility] Serum or plasma calcium megan urement (mass/volume)Ordered By: Millie Massey on 09-09-2024 Calcium [Mass/Vol] 8.8 mg/dL 7.6-11.0 [facility] Serum or plasma urea nitroge n measurement (mass/volume)Ordered By: Millie Massey on 09-09-2024 Urea nitrogen [Mass/Vol] 49 mg/dL High 09-14 [facility] Sodium levelOrdered By: Silvana Massey on 09-09-2024 Sodium [Moles/Vol] 133 mmol/L 133-145 [facility] Sodium level 133 mmol/L 133-145 [facility] Total proteinOrdered By: Lesli Massey on 09-09-2024 Protein [Mass/Vol] 6.1 g/dL 5.9-8.4 [facility] Total protein 6.1 g/dL 5.9-8.4 [facility] Urea nitrogen [Mass/Vol]Orde red By: Millie Massey on 09-09-2024 Serum or plasma urea nitrogen measurement (mass/volume) 49 mg/dL High 09-14 [facility] White blood cell (WBC) count Ordered By: Millie Massey on 09-09-2024 WBC (Bld) [#/Vol] 3.8 10*3/uL Low 4.4-11.0 [facility] White blood cell (WBC) count 3.8 K/mm3 Low 4.4-11.0 [facility] ALP [Catalytic activity/Vol] Ordered By: Millie Massey on 09-02-2024 Serum or plasma alkaline phosphatase measurement 81 U/L 35-104 [facility] ALT [Catalytic activity/Vol] Ordered By: Millie Massey on 09-02-2024 Serum or plasma alanine aminotransferase (ALT) measurement 16 U/L <35 [facility] Albumin [Mass/Vol]Ordered By : Millie Massey on 09-02-2024 Serum or plasma albumin measurement (mass/volume) 2.3 g/dL Low 3.4-4.8 [facility] Albumin/Globulin [Mass ratio ]Ordered By: Millie Massey on 09-02-2024 Serum or plasma albumin/globulin mass ratio 0.6 RATIO Low 0.9-2.4 [facility] Anion gap [Moles/Vol]Ordered By: Millie Massey on 09-02-2024 Anion gap in Serum or Plasma 10 5-15 [facility] Anion gap in Serum or Plasma Ordered By: Millie Massey on 09-02-2024 Anion gap [Moles/Vol] 10 mmol/L 5-15 [facility] BUN/creatinine ratioOrdered By: Millie Massey on 09-02-2024 Urea nitrogen/Creatinine [Mass ratio] 22.5 mg/mg High 10-20 [facility] BUN/creatinine ratio 22.5 RATIO High 10-20 [facility] Bilirubin, totalOrdered By: Millie Massey on 09-02-2024 Bilirubin [Mass/Vol] 0.27 mg/dL Normal 0.00-1.30 [facility] Comment on above: Order Comment: Performed By: #### L 501.5200, L500.4050, L100.0500, L100.4500 ####[facility] [address] [facility] [place], [place], [id number] Bilirubin, total 0.27 mg/dL 0.00-1.30 [facility] Blood manual differential co mment interpretation (narrative result)Ordered By: Millie Massey on 09-02-2024 Manual differential comment Horace (Bld) [Interp] See comment [facility] CBC-Complete Blood Cnt No Di ffon 09-02-2024 Erythrocyte distribution width (RBC) [Ratio] 22.0 % High 11.6-14.6 [facility] Comment on above: Order Comment: Performed By: #### L 501.5200, L500.4050, L100.0500, L100.4500 ####[facility] [address] [place], [address] Hematocrit (Bld) [Volume fraction] 34.9 % Low 37-47 [facility] Comment on above: Order Comment: Performed By: #### L 501.5200, L500.4050, L100.0500, L100.4500 ####[facility] [address] [place], [address] Hemoglobin (Bld) [Mass/Vol] 10.7 g/dL Low 12.0-15.0 [facility] Comment on above: Order Comment: Performed By: #### L 501.5200, L500.4050, L100.0500, L100.4500 ####[facility] [address] [place], [address] MCH (RBC) [Entitic mass] 28.0 pg Normal 27.0-32.0 [facility] Comment on above: Order Comment: Performed By: #### L 501.5200, L500.4050, L100.0500, L100.4500 ####[facility] [address] [place], [address] MCHC (RBC) [Mass/Vol] 30.7 g/dL Low 32-36 [facility] Comment on above: Order Comment: Performed By: #### L 501.5200, L500.4050, L100.0500, L100.4500 ####[facility] [address] [place], [address] MCV (RBC) [Entitic vol] 91.4 fL Normal 81-99 [facility] Comment on above: Order Comment: Performed By: #### L 501.5200, L500.4050, L100.0500, L100.4500 ####[facility] [address] [place], [address] Platelet mean volume (Bld) [Entitic vol] 10.2 fL Normal 6.2-12.0 [facility] Comment on above: Order Comment: - Performed By: #### L 501.5200, L500.4050, L100.0500, L100.4500 ####[facility] [address] [place], [address] Platelets (Bld) [#/Vol] 178 10*3/uL Normal 150-450 [facility] Comment on above: Order Comment: - Performed By: #### L 501.5200, L500.4050, L100.0500, L100.4500 ####[facility] [address] [place], [address] RBC (Bld) [#/Vol] 3.82 10*6/uL Low 4.2-5.4 [facility] Comment on above: Order Comment: - Performed By: #### L 501.5200, L500.4050, L100.0500, L100.4500 ####[facility] [address] [place], [address] RDW SD 72.8 fl High 35.1-43.9 [facility] Comment on above: Order Comment: - Performed By: #### L 501.5200, L500.4050, L100.0500, L100.4500 ####[facility] [address] [place], [address] WBC (Bld) [#/Vol] 8.0 10*3/uL Normal 4.4-11.0 [facility] Comment on above: Order Comment: - Performed By: #### L 501.5200, L500.4050, L100.0500, L100.4500 ####[facility] [address] [place], [address] Calcium [Mass/Vol]Ordered By : Millie Massey on 09-02-2024 Serum or plasma calcium measurement (mass/volume) 7.8 mg/dL 7.6-11.0 [facility] Carbon dioxide, total [Moles /volume] in Central venous bloodOrdered By: Millie Massey on 09-02-2024 CO2 [Moles/Vol] 25.9 mmol/L Normal 21.0-32.0 [facility] Comment on above: Order Comment: Performed By: #### L 501.5200, L500.4050, L100.0500, L100.4500 ####[facility] [address] [place], [address] Carbon dioxide, total [Moles/volume] in Central venous blood 25.9 mmol/L 21.0-32.0 [facility] Chloride assayOrdered By: Carter Massey on 09-02-2024 Chloride [Moles/Vol] 96 mmol/L Low 98-108 [facility] Comment on above: Order Comment: Performed By: #### L 501.5200, L500.4050, L100.0500, L100.4500 ####[facility] [address] [place], [address] Chloride assay 96 mmol/L Low 98-108 [facility] Comprehensive Metabolic Prof ilon 09-02-2024 ALK PHOS 81 U/L Normal 35-104 [facility] Comment on above: Order Comment: Performed By: #### L 501.5200, L500.4050, L100.0500, L100.4500 ####[facility] [address] [place], [address] AST [Catalytic activity/Vol] 47 U/L High <=31 [facility] Comment on above: Order Comment: Performed By: #### L 501.5200, L500.4050, L100.0500, L100.4500 ####[facility] [address] [place], [address] BUN/CRE 22.5 RATIO High 10-20 [facility] Comment on above: Order Comment: Performed By: #### L 501.5200, L500.4050, L100.0500, L100.4500 ####[facility] [address] [place], [address] GAP 10 Normal 5-15 [facility] Comment on above: Order Comment: Performed By: #### L 501.5200, L500.4050, L100.0500, L100.4500 ####[facility] [address] [place], [address] Potassium [Moles/Vol] 3.7 mmol/L Normal 3.3-5.1 [facility] Comment on above: Order Comment: Performed By: #### L 501.5200, L500.4050, L100.0500, L100.4500 ####[facility] [address] [place], [address] T PROT 5.9 g/dL Normal 5.9-8.4 [facility] Comment on above: Order Comment: Performed By: #### L 501.5200, L500.4050, L100.0500, L100.4500 ####[facility] [address] [place], [address] Creatinine [Mass/Vol]Ordered By: Millie Massey on 09-02-2024 Serum creatinine measurement (mass/volume) 0.91 mg/dL 0.70-1.20 [facility] Differential Commenton 09-02 SMEAR COMMENT Normal [facility] Comment on above: Order Comment: Result Comment: ANIS OCYTOSIS 1+ Performed By: #### L 501.5200, L500.4050, L100.0500, L100.4500 ####[facility] [address] [place], [place], [address] Erythrocyte distribution wid th (RBC) [Ratio]Ordered By: Millie Massey on 09-02-2024 Erythrocyte distribution width ratio 22.0 % High 11.6-14.6 [facility] Erythrocyte distribution width standard deviation 72.8 fl High 35.1-43.9 [facility] Erythrocyte distribution wid th ratioOrdered By: Millie Massey on 09-02-2024 Erythrocyte distribution width (RBC) [Ratio] 22.0 % High 11.6-14.6 [facility] Erythrocyte distribution wid th standard deviationOrdered By: Millie Massey on 09-02-2024 Erythrocyte distribution width (RBC) [Ratio] 72.8 fl High 35.1-43.9 [facility] GFR/1.73 sq M.predicted víctor g non-blacks MDRD (S/P/Bld) [Vol rate/Area]Ordered By: Millie Massey on 09-02-2024 Glomerular filtration rate (GFR) estimation/1.73 sq m using serum, plasma, or whole b 71 >60 [facility] Glomerular filtration rate ( GFR) estimation/1.73 sq m using serum, plasma, or whole bOrdered By: Millie Massey on 09-02-2024 GFR/1.73 sq M.predicted among non-blacks MDRD (S/P/Bld) [Vol rate/Area] 71 mL/min/{1.73_m2} Normal >60 [facility] Comment on above: Order Comment: Result Comment: mL/m in/1.73m2 CKD-EPI Creatinine Equation (2020) Performed By: #### L 501.5200, L500.4050, L100.0500, L100.4500 ####[facility] [address] [facility] [address] [place], [place], [address] Glucose [Mass/Vol]Ordered By : Millie Massey on 09-02-2024 Serum glucose measurement (mass/volume) 73 mg/dL 70-99 [facility] Hematocrit Auto (Bld) [Volum e fraction]Ordered By: Millie Massey on 09-02-2024 Hematocrit (Bld) [Volume fraction] 34.9 % Low 37-47 [facility] Automated blood hematocrit (percentage) 34.9 % Low 37-47 [facility] Hemoglobin measurementOrdere d By: Millie Massey on 09-02-2024 Hemoglobin (Bld) [Mass/Vol] 10.7 g/dL Low 12.0-15.0 [facility] Hemoglobin measurement 10.7 g/dL Low 12.0-15.0 [facility] MCV (RBC) [Entitic vol]Order ed By: Millie Massey on 09-02-2024 MCV (mean corpuscular volume) determination 91.4 fL 81-99 [facility] MCV (mean corpuscular volume ) determinationOrdered By: Millie Massey on 09-02-2024 MCV (RBC) [Entitic vol] 91.4 fL 81-99 [facility] Magnesiumon 09-02-2024 Magnesium [Mass/Vol] 2.4 mg/dL High 1.5-2.2 [facility] Comment on above: Order Comment: Performed By: #### L 501.5200, L500.4050, L100.0500, L100.4500 ####[facility] [address] [place], [place], [id number] Magnesium (Unsp spec) [Mass/ Vol]Ordered By: Millie Massye on 09-02-2024 Magnesium measurement (mass/volume) 2.4 mg/dL High 1.5-2.2 [facility] Magnesium measurement (mass/ volume)Ordered By: Millie Massey on 09-02-2024 Magnesium (Unsp spec) [Mass/Vol] 2.4 mg/dL High 1.5-2.2 [facility] Manual differential comment Horace (Bld) [Interp]Ordered By: Millie Massey on 09-02-2024 Blood manual differential comment interpretation (narrative result) See comment [facility] Mean corpuscular hemoglobin (MCH) determinationOrdered By: Millie Massey on 09-02-2024 MCH (RBC) [Entitic mass] 28.0 pg 27.0-32.0 [facility] Mean corpuscular hemoglobin (MCH) determination 28.0 pg 27.0-32.0 [facility] Mean corpuscular hemoglobin concentration (MCHC) determinationOrdered By: Millie Massey on 09-02-2024 Mean corpuscular hemoglobin concentration (MCHC) determination 30.7 g/dL Low 32-36 [facility] Mean platelet volume determi nationOrdered By: Millie Massey on 09-02-2024 Mean platelet volume determination 10.2 fl 6.2-12.0 [facility] No Panel InformationOrdered By: Millie Massey on 09-02-2024 47 U/L High <32 [facility] Platelet countOrdered By: Carter Massey on 09-02-2024 Platelets (Bld) [#/Vol] 178 10*3/uL 150-450 [facility] Platelet count 178 K/mm3 150-450 [facility] Potassium (Unsp spec) [Mass/ Vol]Ordered By: Millie Massey on 09-02-2024 Potassium measurement (mass/volume) 3.7 mmol/L 3.3-5.1 [facility] Potassium measurement (mass/ volume)Ordered By: Millie Massey on 09-02-2024 Potassium (Unsp spec) [Mass/Vol] 3.7 mmol/L 3.3-5.1 [facility] RBC Auto (Bld) [#/Vol]Ordere d By: Millie Massey on 09-02-2024 RBC (Bld) [#/Vol] 3.82 10*6/uL Low 4.2-5.4 [facility] Automated blood erythrocyte count 3.82 M/mm3 Low 4.2-5.4 [facility] Serum creatinine measurement (mass/volume)Ordered By: Millie Massey on 09-02-2024 Creatinine [Mass/Vol] 0.91 mg/dL Normal 0.70-1.20 [facility] Comment on above: Order Comment: Performed By: #### L 501.5200, L500.4050, L100.0500, L100.4500 ####[facility] [address] [place], [address] Serum globulin measurementOr dered By: Millie Massey on 09-02-2024 Globulin (S) [Mass/Vol] 3.7 g/dL Normal 2.2-4.2 [facility] Comment on above: Order Comment: Performed By: #### L 501.5200, L500.4050, L100.0500, L100.4500 ####[facility] [address] [place], [address] Serum globulin measurement 3.7 g/dL 2.2-4.2 [facility] Serum glucose measurement (m ass/volume)Ordered By: Millie Massey on 09-02-2024 Glucose [Mass/Vol] 73 mg/dL Normal 70-99 [facility] Comment on above: Order Comment: Performed By: #### L 501.5200, L500.4050, L100.0500, L100.4500 ####[facility] [address] [place], [address] Serum or plasma alanine camargo otransferase (ALT) measurementOrdered By: Millie Massey on 09-02-2024 ALT [Catalytic activity/Vol] 16 U/L Normal <=34 [facility] Comment on above: Order Comment: Performed By: #### L 501.5200, L500.4050, L100.0500, L100.4500 ####[facility] [address] [place], [address] Serum or plasma albumin megan urement (mass/volume)Ordered By: Millie Massey on 09-02-2024 Albumin [Mass/Vol] 2.3 g/dL Low 3.4-4.8 [facility] Comment on above: Order Comment: Performed By: #### L 501.5200, L500.4050, L100.0500, L100.4500 ####[facility] [address] [place], [address] Serum or plasma albumin/glob ulin mass ratioOrdered By: Millie Massey on 09-02-2024 Albumin/Globulin [Mass ratio] 0.6 {ratio} Low 0.9-2.4 [facility] Comment on above: Order Comment: Performed By: #### L 501.5200, L500.4050, L100.0500, L100.4500 ####[facility] [address] [place], [place], [id number] Serum or plasma alkaline susan sphatase measurementOrdered By: Millie Massey on 09-02-2024 ALP [Catalytic activity/Vol] 81 U/L 35-104 [facility] Serum or plasma calcium megan urement (mass/volume)Ordered By: Millie Massey on 09-02-2024 Calcium [Mass/Vol] 7.8 mg/dL Normal 7.6-11.0 [facility] Comment on above: Order Comment: Performed By: #### L 501.5200, L500.4050, L100.0500, L100.4500 ####[facility] [address] [place], [place], [id number] Serum or plasma urea nitroge n measurement (mass/volume)Ordered By: Millie Massey on 09-02-2024 Urea nitrogen [Mass/Vol] 21 mg/dL High 4-19 [facility] Comment on above: Order Comment: Performed By: #### L 501.5200, L500.4050, L100.0500, L100.4500 ####[facility] [address] [place], [address] Sodium levelOrdered By: Silvana Massey on 09-02-2024 Sodium [Moles/Vol] 133 mmol/L Normal 133-145 [facility] Comment on above: Order Comment: Performed By: #### L 501.5200, L500.4050, L100.0500, L100.4500 ####[facility] [address] [place], [address] Sodium level 133 mmol/L 133-145 [facility] Total proteinOrdered By: Lesli Massey on 09-02-2024 Protein [Mass/Vol] 5.9 g/dL 5.9-8.4 [facility] Total protein 5.9 g/dL 5.9-8.4 [facility] Urea nitrogen [Mass/Vol]Orde red By: Millie Massey on 09-02-2024 Serum or plasma urea nitrogen measurement (mass/volume) 21 mg/dL High 4-19 [facility] White blood cell (WBC) count Ordered By: Millie Massey on 09-02-2024 WBC (Bld) [#/Vol] 8.0 10*3/uL 4.4-11.0 [facility] White blood cell (WBC) count 8.0 K/mm3 4.4-11.0 [facility] [id number] 08-30-2024 ANTIBODY ID Normal [facility] Comment on above: Order Comment: [id number] Result Comment: CFYA Performed By: #### KENDRA FREEMAN BTS ####[facility] [address] [place], [place], [id number] BRCon 08-29-2024 RC Normal [facility] Comment on above: Result Comment: [id number] ON PRSMD TRFSD 08/31/24 [id number] ON PRSMD TRFSD 08/31/24 1018 Performed By: #### Laila WITTSBW5929KENDRA Duran BTS ####[facility] [address] [place], [place], [id number] Type AND Screenon 08-29-2024 ABO and Rh group Nom (Bld) Blood group O Rh(D) positive Normal [facility] Comment on above: Order Comment: NYA Performed By: #### KENDRA FREEMAN BTS ####[facility] [address] [place], [address] Blood manual differential co mment interpretation (narrative result)Ordered By: Millie Massey on 08-28-2024 Manual differential comment Horace (Bld) [Interp] See comment [facility] CBC-Complete Blood Cnt No Di ffon 08-28-2024 Erythrocyte distribution width (RBC) [Ratio] 21.5 % High 11.6-14.6 [facility] Comment on above: Order Comment: 200 Performed By: #### L 100.0500, L100.4500 ####[facility] [address] [place], [address] Hematocrit (Bld) [Volume fraction] 24.2 % Low 37-47 [facility] Comment on above: Order Comment: 200 Performed By: #### L 100.0500, L100.4500 ####[facility] [address] [place], [address] Hemoglobin (Bld) [Mass/Vol] 7.1 g/dL Low 12.0-15.0 [facility] Comment on above: Order Comment: 200 Performed By: #### L 100.0500, L100.4500 ####[facility] [address] [place], [address] MCH (RBC) [Entitic mass] 27.8 pg Normal 27.0-32.0 [facility] Comment on above: Order Comment: 200 Performed By: #### L 100.0500, L100.4500 ####[facility] [address] [place], [address] MCHC (RBC) [Mass/Vol] 29.3 g/dL Low 32-36 [facility] Comment on above: Order Comment: 200 Performed By: #### L 100.0500, L100.4500 ####[facility] [address] [place], [address] MCV (RBC) [Entitic vol] 94.9 fL Normal 81-99 [facility] Comment on above: Order Comment: 200 Performed By: #### L 100.0500, L100.4500 ####[facility] [address] [place], [address] Platelet mean volume (Bld) [Entitic vol] 10.8 fL Normal 6.2-12.0 [facility] Comment on above: Order Comment: 200 Performed By: #### L 100.0500, L100.4500 ####[facility] [address] [place], [address] Platelets (Bld) [#/Vol] 261 10*3/uL Normal 150-450 [facility] Comment on above: Order Comment: 200 Performed By: #### L 100.0500, L100.4500 ####[facility] [address] [place], [address] RBC (Bld) [#/Vol] 2.55 10*6/uL Low 4.2-5.4 [facility] Comment on above: Order Comment: 200 Performed By: #### L 100.0500, L100.4500 ####[facility] [address] [place], [address] RDW SD 74.1 fl High 35.1-43.9 [facility] Comment on above: Order Comment: 200 Performed By: #### L 100.0500, L100.4500 ####[facility] [address] [place], [address] WBC (Bld) [#/Vol] 4.3 10*3/uL Low 4.4-11.0 [facility] Comment on above: Order Comment: 200 Performed By: #### L 100.0500, L100.4500 ####[facility] [address] [place], [address] Differential Commenton 08-28 SMEAR COMMENT Normal [facility] Comment on above: Order Comment: 200 Result Comment: ANIS OCYTOSIS = 1+POLYCHROMASIA = 1+PLATELET ESTIMATE = ADEQUATE Performed By: #### L 100.0500, L100.4500 ####[facility] [address] [place], [address] Erythrocyte distribution wid th (RBC) [Ratio]Ordered By: Millie Massey on 08-28-2024 Erythrocyte distribution width ratio 21.5 % High 11.6-14.6 [facility] Erythrocyte distribution width standard deviation 74.1 fl High 35.1-43.9 [facility] Erythrocyte distribution wid th ratioOrdered By: Millie Massey on 08-28-2024 Erythrocyte distribution width (RBC) [Ratio] 21.5 % High 11.6-14.6 [facility] Erythrocyte distribution wid th standard deviationOrdered By: Millie Massey on 08-28-2024 Erythrocyte distribution width (RBC) [Ratio] 74.1 fl High 35.1-43.9 [facility] Hematocrit Auto (Bld) [Volum e fraction]Ordered By: Millie Massey on 08-28-2024 Hematocrit (Bld) [Volume fraction] 24.2 % Low 37-47 [facility] Automated blood hematocrit (percentage) 24.2 % Low 37-47 [facility] Hemoglobin measurementOrdere d By: Millie Massey on 08-28-2024 Hemoglobin (Bld) [Mass/Vol] 7.1 g/dL Low 12.0-15.0 [facility] Hemoglobin measurement 7.1 g/dL Low 12.0-15.0 [facility] MCV (RBC) [Entitic vol]Order ed By: Millie Massey on 08-28-2024 MCV (mean corpuscular volume) determination 94.9 fL 81-99 [facility] MCV (mean corpuscular volume ) determinationOrdered By: Millie Massey on 08-28-2024 MCV (RBC) [Entitic vol] 94.9 fL 81-99 [facility] Manual differential comment Horace (Bld) [Interp]Ordered By: Millie Massey on 08-28-2024 Blood manual differential comment interpretation (narrative result) See comment [facility] Mean corpuscular hemoglobin (MCH) determinationOrdered By: Millie Massey on 08-28-2024 MCH (RBC) [Entitic mass] 27.8 pg 27.0-32.0 [facility] Mean corpuscular hemoglobin (MCH) determination 27.8 pg 27.0-32.0 [facility] Mean corpuscular hemoglobin concentration (MCHC) determinationOrdered By: Millie Massey on 08-28-2024 Mean corpuscular hemoglobin concentration (MCHC) determination 29.3 g/dL Low 32-36 [facility] Mean platelet volume determi nationOrdered By: Millie Massey on 08-28-2024 Mean platelet volume determination 10.8 fl 6.2-12.0 [facility] Platelet countOrdered By: Carter Massey on 08-28-2024 Platelets (Bld) [#/Vol] 261 10*3/uL 150-450 [facility] Platelet count 261 K/mm3 150-450 [facility] RBC Auto (Bld) [#/Vol]Ordere d By: Millie Massey on 08-28-2024 RBC (Bld) [#/Vol] 2.55 10*6/uL Low 4.2-5.4 [facility] Automated blood erythrocyte count 2.55 M/mm3 Low 4.2-5.4 [facility] White blood cell (WBC) count Ordered By: Millie Massey on 08-28-2024 WBC (Bld) [#/Vol] 4.3 10*3/uL Low 4.4-11.0 [facility] White blood cell (WBC) count 4.3 K/mm3 Low 4.4-11.0 [facility] ALP [Catalytic activity/Vol] Ordered By: Millie Massey on 08-26-2024 Serum or plasma alkaline phosphatase measurement 81 U/L 35-104 [facility] ALT [Catalytic activity/Vol] Ordered By: Millie Massey on 08-26-2024 Serum or plasma alanine aminotransferase (ALT) measurement 10 U/L <35 [facility] Albumin [Mass/Vol]Ordered By : Millie Massey on 08-26-2024 Serum or plasma albumin measurement (mass/volume) 2.1 g/dL Low 3.4-4.8 [facility] Albumin/Globulin [Mass ratio ]Ordered By: Millie Massey on 08-26-2024 Serum or plasma albumin/globulin mass ratio 0.6 RATIO Low 0.9-2.4 [facility] Anion gap [Moles/Vol]Ordered By: Millie Massey on 08-26-2024 Anion gap in Serum or Plasma 12 5- [facility] Anion gap in Serum or Plasma Ordered By: Millie Massey on 08-26-2024 Anion gap [Moles/Vol] 12 mmol/L 5-15 [facility] BUN/creatinine ratioOrdered By: Millie Massey on 08-26-2024 Urea nitrogen/Creatinine [Mass ratio] 24.2 mg/mg High 10-20 [facility] BUN/creatinine ratio 24.2 RATIO High 10-20 [facility] Bilirubin, totalOrdered By: Millie Massey on 08-26-2024 Bilirubin [Mass/Vol] 0.19 mg/dL 0.00-1.30 [facility] Bilirubin, total 0.19 mg/dL 0.00-1.30 [facility] Blood manual differential co mment interpretation (narrative result)Ordered By: Millie Massey on 08-26-2024 Manual differential comment Horace (Bld) [Interp] COMMENT [facility] CBC-Complete Blood Cnt No Di ffon 08-26-2024 Erythrocyte distribution width (RBC) [Ratio] 21.6 % High 11.6-14.6 [facility] Comment on above: Order Comment: 206 Performed By: #### L 100.0500, L100.4500, L501.5200, L500.4050 ####[facility] [address] [place], [place], [id number] Hematocrit (Bld) [Volume fraction] 23.6 % Low 37-47 [facility] Comment on above: Order Comment: 206 Performed By: #### L 100.0500, L100.4500, L501.5200, L500.4050 ####[facility] [address] [place], [address] Hemoglobin (Bld) [Mass/Vol] 7.0 g/dL Low 12.0-15.0 [facility] Comment on above: Order Comment: 206 Performed By: #### L 100.0500, L100.4500, L501.5200, L500.4050 ####[facility] [address] [place], [address] MCH (RBC) [Entitic mass] 27.7 pg Normal 27.0-32.0 [facility] Comment on above: Order Comment: 206 Performed By: #### L 100.0500, L100.4500, L501.5200, L500.4050 ####[facility] [address] [place], [address] MCHC (RBC) [Mass/Vol] 29.7 g/dL Low 32-36 [facility] Comment on above: Order Comment: 206 Performed By: #### L 100.0500, L100.4500, L501.5200, L500.4050 ####[facility] [address] [place], [address] MCV (RBC) [Entitic vol] 93.3 fL Normal 81-99 [facility] Comment on above: Order Comment: 206 Performed By: #### L 100.0500, L100.4500, L501.5200, L500.4050 ####[facility] [address] [place], [address] Platelet mean volume (Bld) [Entitic vol] 10.2 fL Normal 6.2-12.0 [facility] Comment on above: Order Comment: 206 Performed By: #### L 100.0500, L100.4500, L501.5200, L500.4050 ####[facility] [address] [place], [address] Platelets (Bld) [#/Vol] 260 10*3/uL Normal 150-450 [facility] Comment on above: Order Comment: 206 Performed By: #### L 100.0500, L100.4500, L501.5200, L500.4050 ####[facility] [address] [place], [address] RBC (Bld) [#/Vol] 2.53 10*6/uL Low 4.2-5.4 [facility] Comment on above: Order Comment: 206 Performed By: #### L 100.0500, L100.4500, L501.5200, L500.4050 ####[facility] [address] [place], [address] RDW SD 71.9 fl High 35.1-43.9 [facility] Comment on above: Order Comment: 206 Performed By: #### L 100.0500, L100.4500, L501.5200, L500.4050 ####[facility] [address] [place], [address] WBC (Bld) [#/Vol] 4.2 10*3/uL Low 4.4-11.0 [facility] Comment on above: Order Comment: 206 Performed By: #### L 100.0500, L100.4500, L501.5200, L500.4050 ####[facility] [address] [place], [address] Calcium [Mass/Vol]Ordered By : Millie Massey on 08-26-2024 Serum or plasma calcium measurement (mass/volume) 8.2 mg/dL 7.6-11.0 [facility] Carbon dioxide, total [Moles /volume] in Central venous bloodOrdered By: Millie Massey on 08-26-2024 CO2 [Moles/Vol] 23.7 mmol/L 21.0-32.0 [facility] Carbon dioxide, total [Moles/volume] in Central venous blood 23.7 mmol/L 21.0-32.0 [facility] Chloride assayOrdered By: Carter Massey on 08-26-2024 Chloride [Moles/Vol] 96 mmol/L Low 98-108 [facility] Chloride assay 96 mmol/L Low 98-108 [facility] Comprehensive Metabolic Prof ilon 08-26-2024 Albumin [Mass/Vol] 2.1 g/dL Low 3.4-4.8 [facility] Comment on above: Order Comment: 206 Performed By: #### L 100.0500, L100.4500, L501.5200, L500.4050 ####[facility] [address] [place], [address] Albumin/Globulin [Mass ratio] 0.6 {ratio} Low 0.9-2.4 [facility] Comment on above: Order Comment: 206 Performed By: #### L 100.0500, L100.4500, L501.5200, L500.4050 ####[facility] [address] [place], [address] ALK PHOS 81 U/L Normal 35-104 [facility] Comment on above: Order Comment: 206 Performed By: #### L 100.0500, L100.4500, L501.5200, L500.4050 ####[facility] [address] [place], [address] ALT [Catalytic activity/Vol] 10 U/L Normal <=34 [facility] Comment on above: Order Comment: 206 Performed By: #### L 100.0500, L100.4500, L501.5200, L500.4050 ####[facility] [address] [place], [address] AST [Catalytic activity/Vol] 30 U/L Normal <=31 [facility] Comment on above: Order Comment: 206 Performed By: #### L 100.0500, L100.4500, L501.5200, L500.4050 ####[facility] [address] [place], [address] Bilirubin [Mass/Vol] 0.19 mg/dL Normal 0.00-1.30 [facility] Comment on above: Order Comment: 206 Performed By: #### L 100.0500, L100.4500, L501.5200, L500.4050 ####[facility] [address] [place], [address] BUN/CRE 24.2 RATIO High 10-20 [facility] Comment on above: Order Comment: 206 Performed By: #### L 100.0500, L100.4500, L501.5200, L500.4050 ####[facility] [address] [place], [address] Calcium [Mass/Vol] 8.2 mg/dL Normal 7.6-11.0 [facility] Comment on above: Order Comment: 206 Performed By: #### L 100.0500, L100.4500, L501.5200, L500.4050 ####[facility] [address] [place], [address] Chloride [Moles/Vol] 96 mmol/L Low 98-108 [facility] Comment on above: Order Comment: 206 Performed By: #### L 100.0500, L100.4500, L501.5200, L500.4050 ####[facility] [address] [place], [address] CO2 [Moles/Vol] 23.7 mmol/L Normal 21.0-32.0 [facility] Comment on above: Order Comment: 206 Performed By: #### L 100.0500, L100.4500, L501.5200, L500.4050 ####[facility] [address] [place], [address] Creatinine [Mass/Vol] 1.49 mg/dL High 0.70-1.20 [facility] Comment on above: Order Comment: 206 Performed By: #### L 100.0500, L100.4500, L501.5200, L500.4050 ####[facility] [address] [place], [address] GAP 12 Normal 5-15 [facility] Comment on above: Order Comment: 206 Performed By: #### L 100.0500, L100.4500, L501.5200, L500.4050 ####[facility] [address] [place], [address] GFR/1.73 sq M.predicted among non-blacks MDRD (S/P/Bld) [Vol rate/Area] 39 mL/min/{1.73_m2} Low >60 [facility] Comment on above: Order Comment: 206 Result Comment: mL/m in/1.73m2 CKD-EPI Creatinine Equation (2020) Performed By: #### L 100.0500, L100.4500, L501.5200, L500.4050 ####[facility] [address] [place], [address] Globulin (S) [Mass/Vol] 3.3 g/dL Normal 2.2-4.2 [facility] Comment on above: Order Comment: 206 Performed By: #### L 100.0500, L100.4500, L501.5200, L500.4050 ####[facility] [address] [place], [address] Glucose [Mass/Vol] 93 mg/dL Normal 70-99 [facility] Comment on above: Order Comment: 206 Performed By: #### L 100.0500, L100.4500, L501.5200, L500.4050 ####[facility] [address] [place], [address] Potassium [Moles/Vol] 4.9 mmol/L Normal 3.3-5.1 [facility] Comment on above: Order Comment: 206 Performed By: #### L 100.0500, L100.4500, L501.5200, L500.4050 ####[facility] [address] [place], [address] Sodium [Moles/Vol] 131 mmol/L Low 133-145 [facility] Comment on above: Order Comment: 206 Performed By: #### L 100.0500, L100.4500, L501.5200, L500.4050 ####[facility] [address] [place], [address] T PROT 5.4 g/dL Low 5.9-8.4 [facility] Comment on above: Order Comment: 206 Performed By: #### L 100.0500, L100.4500, L501.5200, L500.4050 ####[facility] [address] [place], [address] Urea nitrogen [Mass/Vol] 36 mg/dL High 4-19 [facility] Comment on above: Order Comment: 206 Performed By: #### L 100.0500, L100.4500, L501.5200, L500.4050 ####[facility] [address] [place], [address] Creatinine [Mass/Vol]Ordered By: Millie Massey on 08-26-2024 Serum creatinine measurement (mass/volume) 1.49 mg/dL High 0.70-1.20 [facility] Differential Commenton 08-26 SMEAR COMMENT COMMENT Normal [facility] Comment on above: Order Comment: 206 Result Comment: 2+ A NISO. Performed By: #### L 100.0500, L100.4500, L501.5200, L500.4050 ####[facility] [address] [place], [address] Erythrocyte distribution wid th (RBC) [Ratio]Ordered By: Millie Massey on 08-26-2024 Erythrocyte distribution width ratio 21.6 % High 11.6-14.6 [facility] Erythrocyte distribution width standard deviation 71.9 fl High 35.1-43.9 [facility] Erythrocyte distribution wid th ratioOrdered By: Millie Massey on 08-26-2024 Erythrocyte distribution width (RBC) [Ratio] 21.6 % High 11.6-14.6 [facility] Erythrocyte distribution wid th standard deviationOrdered By: Millie Massey on 08-26-2024 Erythrocyte distribution width (RBC) [Ratio] 71.9 fl High 35.1-43.9 [facility] GFR/1.73 sq M.predicted víctor g non-blacks MDRD (S/P/Bld) [Vol rate/Area]Ordered By: Millie Massey on 08-26-2024 Glomerular filtration rate (GFR) estimation/1.73 sq m using serum, plasma, or whole b 39 Low >60 [facility] Glomerular filtration rate ( GFR) estimation/1.73 sq m using serum, plasma, or whole bOrdered By: Millie Masesy on 08-26-2024 GFR/1.73 sq M.predicted among non-blacks MDRD (S/P/Bld) [Vol rate/Area] 39 mL/min/{1.73_m2} Low >60 [facility] Glucose [Mass/Vol]Ordered By : Millie Massey on 08-26-2024 Serum glucose measurement (mass/volume) 93 mg/dL 70-99 [facility] Hematocrit Auto (Bld) [Volum e fraction]Ordered By: Millie Massey on 08-26-2024 Hematocrit (Bld) [Volume fraction] 23.6 % Low 37-47 [facility] Automated blood hematocrit (percentage) 23.6 % Low 37-47 [facility] Hemoglobin measurementOrdere d By: Millie Massey on 08-26-2024 Hemoglobin (Bld) [Mass/Vol] 7.0 g/dL Low 12.0-15.0 [facility] Hemoglobin measurement 7.0 g/dL Low 12.0-15.0 [facility] MCV (RBC) [Entitic vol]Order ed By: Millie Massey on 08-26-2024 MCV (mean corpuscular volume) determination 93.3 fL 81-99 [facility] MCV (mean corpuscular volume ) determinationOrdered By: Millie Massey on 08-26-2024 MCV (RBC) [Entitic vol] 93.3 fL 81-99 [facility] Magnesiumon 08-26-2024 Magnesium [Mass/Vol] 1.8 mg/dL Normal 1.5-2.2 [facility] Comment on above: Order Comment: 206 Performed By: #### L 100.0500, L100.4500, L501.5200, L500.4050 ####[facility] [address] [place], [place], [address] Magnesium (Unsp spec) [Mass/ Vol]Ordered By: Millie Massey on 08-26-2024 Magnesium measurement (mass/volume) 1.8 mg/dL 1.5-2.2 [facility] Magnesium measurement (mass/ volume)Ordered By: Millie Massey on 08-26-2024 Magnesium (Unsp spec) [Mass/Vol] 1.8 mg/dL 1.5-2.2 [facility] Manual differential comment Horace (Bld) [Interp]Ordered By: Millie Massey on 08-26-2024 Blood manual differential comment interpretation (narrative result) COMMENT [facility] Mean corpuscular hemoglobin (MCH) determinationOrdered By: Millie Massey on 08-26-2024 MCH (RBC) [Entitic mass] 27.7 pg 27.0-32.0 [facility] Mean corpuscular hemoglobin (MCH) determination 27.7 pg 27.0-32.0 [facility] Mean corpuscular hemoglobin concentration (MCHC) determinationOrdered By: Millie Massey on 08-26-2024 Mean corpuscular hemoglobin concentration (MCHC) determination 29.7 g/dL Low 32-36 [facility] Mean platelet volume determi nationOrdered By: Millie Massey on 08-26-2024 Mean platelet volume determination 10.2 fl 6.2-12.0 [facility] No Panel InformationOrdered By: Millie Massey on 08-26-2024 30 U/L <32 [facility] Platelet countOrdered By: Carter Massey on 08-26-2024 Platelets (Bld) [#/Vol] 260 10*3/uL 150-450 [facility] Platelet count 260 K/mm3 150-450 [facility] Potassium (Unsp spec) [Mass/ Vol]Ordered By: Millie Massey on 08-26-2024 Potassium measurement (mass/volume) 4.9 mmol/L 3.3-5.1 [facility] Potassium measurement (mass/ volume)Ordered By: Millie Massey on 08-26-2024 Potassium (Unsp spec) [Mass/Vol] 4.9 mmol/L 3.3-5.1 [facility] RBC Auto (Bld) [#/Vol]Ordere d By: Millie Massey on 08-26-2024 RBC (Bld) [#/Vol] 2.53 10*6/uL Low 4.2-5.4 [facility] Automated blood erythrocyte count 2.53 M/mm3 Low 4.2-5.4 [facility] Serum creatinine measurement (mass/volume)Ordered By: Millie Massey on 08-26-2024 Creatinine [Mass/Vol] 1.49 mg/dL High 0.70-1.20 [facility] Serum globulin measurementOr dered By: Millie Massey on 08-26-2024 Globulin (S) [Mass/Vol] 3.3 g/dL 2.2-4.2 [facility] Serum globulin measurement 3.3 g/dL 2.2-4.2 [facility] Serum glucose measurement (m ass/volume)Ordered By: Millie Massey on 08-26-2024 Glucose [Mass/Vol] 93 mg/dL 70-99 [facility] Serum or plasma alanine camargo otransferase (ALT) measurementOrdered By: Millie Massey on 08-26-2024 ALT [Catalytic activity/Vol] 10 U/L <35 [facility] Serum or plasma albumin megan urement (mass/volume)Ordered By: Millie Massey on 08-26-2024 Albumin [Mass/Vol] 2.1 g/dL Low 3.4-4.8 [facility] Serum or plasma albumin/glob ulin mass ratioOrdered By: Millie Massey on 08-26-2024 Albumin/Globulin [Mass ratio] 0.6 {ratio} Low 0.9-2.4 [facility] Serum or plasma alkaline susan sphatase measurementOrdered By: Millie Massey on 08-26-2024 ALP [Catalytic activity/Vol] 81 U/L 35-104 [facility] Serum or plasma calcium megan urement (mass/volume)Ordered By: Millie Massey on 08-26-2024 Calcium [Mass/Vol] 8.2 mg/dL 7.6-11.0 [facility] Serum or plasma urea nitroge n measurement (mass/volume)Ordered By: Millie Massey on 08-26-2024 Urea nitrogen [Mass/Vol] 36 mg/dL High 09-14 [facility] Sodium levelOrdered By: Silvana Massey on 08-26-2024 Sodium [Moles/Vol] 131 mmol/L Low 133-145 [facility] Sodium level 131 mmol/L Low 133-145 [facility] Total proteinOrdered By: Lesli Massey on 08-26-2024 Protein [Mass/Vol] 5.4 g/dL Low 5.9-8.4 [facility] Total protein 5.4 g/dL Low 5.9-8.4 [facility] Urea nitrogen [Mass/Vol]Orde red By: Millie Massey on 08-26-2024 Serum or plasma urea nitrogen measurement (mass/volume) 36 mg/dL High - [facility] White blood cell (WBC) count Ordered By: Millie Massey on 08-26-2024 WBC (Bld) [#/Vol] 4.2 10*3/uL Low 4.4-11.0 [facility] White blood cell (WBC) count 4.2 K/mm3 Low 4.4-11.0 [facility] Anion gap [Moles/Vol]Ordered By: Millie Massey on 08-22-2024 Anion gap in Serum or Plasma 7 5-15 [facility] Anion gap in Serum or Plasma Ordered By: Millie Massey on 08-22-2024 Anion gap [Moles/Vol] 7 mmol/L - [facility] BUN/creatinine ratioOrdered By: Millie Massey on 08-22-2024 Urea nitrogen/Creatinine [Mass ratio] 20.6 mg/mg High - [facility] BUN/creatinine ratio 20.6 RATIO High 10-20 [facility] Basic Metabolic Profile (BMP )on 08-22-2024 BUN/CRE 20.6 RATIO High 10-20 [facility] Comment on above: Order Comment: 206.1 Performed By: #### L 500.2500 ####[facility] [address] [place], [address] Calcium [Mass/Vol] 7.7 mg/dL Normal 7.6-11.0 [facility] Comment on above: Order Comment: 206.1 Performed By: #### L 500.2500 ####[facility] [address] [place], [address] Chloride [Moles/Vol] 99 mmol/L Normal 98-108 [facility] Comment on above: Order Comment: 206.1 Performed By: #### L 500.2500 ####[facility] [address] [place], [address] CO2 [Moles/Vol] 30.8 mmol/L Normal 21.0-32.0 [facility] Comment on above: Order Comment: 206.1 Performed By: #### L 500.2500 ####[facility] [address] [place], [address] Creatinine [Mass/Vol] 0.89 mg/dL Normal 0.70-1.20 [facility] Comment on above: Order Comment: 206.1 Performed By: #### L 500.2500 ####[facility] [address] [place], [address] GAP 7 Normal -15 [facility] Comment on above: Order Comment: 206.1 Performed By: #### L 500.2500 ####[facility] [address] [place], [address] GFR/1.73 sq M.predicted among non-blacks MDRD (S/P/Bld) [Vol rate/Area] 73 mL/min/{1.73_m2} Normal >60 [facility] Comment on above: Order Comment: 206.1 Result Comment: mL/m in/1.73m2 CKD-EPI Creatinine Equation (2020) Performed By: #### L 500.2500 ####[facility] [address] [place], [address] Glucose [Mass/Vol] 113 mg/dL High 70-99 [facility] Comment on above: Order Comment: 206.1 Performed By: #### L 500.2500 ####[facility] [address] [place], [address] Potassium [Moles/Vol] 3.4 mmol/L Normal 3.3-5.1 [facility] Comment on above: Order Comment: 206.1 Performed By: #### L 500.2500 ####[facility] [address] [place], [address] Sodium [Moles/Vol] 136 mmol/L Normal 133-145 [facility] Comment on above: Order Comment: 206.1 Performed By: #### L 500.2500 ####[facility] [address] [place], [address] Urea nitrogen [Mass/Vol] 18 mg/dL Normal 4-19 [facility] Comment on above: Order Comment: 206.1 Performed By: #### L 500.2500 ####[facility] [address] [place], [address] Calcium [Mass/Vol]Ordered By : Millie Massey on 08-22-2024 Serum or plasma calcium measurement (mass/volume) 7.7 mg/dL 7.6-11.0 [facility] Carbon dioxide, total [Moles /volume] in Central venous bloodOrdered By: Millie Massey on 08-22-2024 CO2 [Moles/Vol] 30.8 mmol/L 21.0-32.0 [facility] Carbon dioxide, total [Moles/volume] in Central venous blood 30.8 mmol/L 21.0-32.0 [facility] Chloride assayOrdered By: Carter Massey on 08-22-2024 Chloride [Moles/Vol] 99 mmol/L 98-108 [facility] Chloride assay 99 mmol/L 98-108 [facility] Creatinine [Mass/Vol]Ordered By: Millie Massey on 08-22-2024 Serum creatinine measurement (mass/volume) 0.89 mg/dL 0.70-1.20 [facility] GFR/1.73 sq M.predicted víctor g non-blacks MDRD (S/P/Bld) [Vol rate/Area]Ordered By: Millie Massey on 08-22-2024 Glomerular filtration rate (GFR) estimation/1.73 sq m using serum, plasma, or whole b 73 >60 [facility] Glomerular filtration rate ( GFR) estimation/1.73 sq m using serum, plasma, or whole bOrdered By: Millie Massey on 08-22-2024 GFR/1.73 sq M.predicted among non-blacks MDRD (S/P/Bld) [Vol rate/Area] 73 mL/min/{1.73_m2} >60 [facility] Glucose [Mass/Vol]Ordered By : Millie Massey on 08-22-2024 Serum glucose measurement (mass/volume) 113 mg/dL High 70-99 [facility] Potassium (Unsp spec) [Mass/ Vol]Ordered By: Millie Massey on 08-22-2024 Potassium measurement (mass/volume) 3.4 mmol/L 3.3-5.1 [facility] Potassium measurement (mass/ volume)Ordered By: Millie Massey on 08-22-2024 Potassium (Unsp spec) [Mass/Vol] 3.4 mmol/L 3.3-5.1 [facility] Serum creatinine measurement (mass/volume)Ordered By: Millie Massey on 08-22-2024 Creatinine [Mass/Vol] 0.89 mg/dL 0.70-1.20 [facility] Serum glucose measurement (m ass/volume)Ordered By: Millie Massey on 08-22-2024 Glucose [Mass/Vol] 113 mg/dL High 70-99 [facility] Serum or plasma calcium megan urement (mass/volume)Ordered By: Millie Massey on 08-22-2024 Calcium [Mass/Vol] 7.7 mg/dL 7.6-11.0 [facility] Serum or plasma urea nitroge n measurement (mass/volume)Ordered By: Millie Massey on 08-22-2024 Urea nitrogen [Mass/Vol] 18 mg/dL - [facility] Sodium levelOrdered By: Silvana Massey on 08-22-2024 Sodium [Moles/Vol] 136 mmol/L 133-145 [facility] Sodium level 136 mmol/L 133-145 [facility] Urea nitrogen [Mass/Vol]Orde red By: Millie Massey on 08-22-2024 Serum or plasma urea nitrogen measurement (mass/volume) 18 mg/dL - [facility] Amylase Body Fluidon 025 AMYLASE,BDY FLD 30 U/L Normal . [facility] Comment on above: Order Comment: Test( s) [id number], Body Fluidwas developed and its performance characteristicsdetermined [...] Saliva : : : (Mixed Glands) : 29394 - [id number] : : : : Leif W, Blaze V. Reference Intervals for Adults and Children 2008. Ninth Edition (V9.1) [employer], [facility]; [place]: November 2008. Performed By: #### L 3800.0400, L3800.0050 ####[facility] [address] [place], [address] Culture, Anaerobic Any Sourc tim 08-20-2024 CUAN No growth in 5 days. Normal [facility] Comment on above: Performed By: #### L 350.1000, L504.0250, L503.0300, L200.0200, L503.0100, M100.2900, M100.2000, M100.4001 ####[facility] [address] [place], [address] pH, Body Fluid [id number] 08-20 PH, BODY FLUID 7.3 Normal Not Estab. [facility] Comment on above: Order Comment: Test( s) [id number], Body Fluidwas developed and its performance characteristicsdetermined [...] interpretation. Performed By: #### L 3800.0400, L3800.0050 ####[facility] [address] [place], [address] Anion gap [Moles/Vol]Ordered By: Millie Massey on 08-19-2024 Anion gap in Serum or Plasma 7 10-10 [facility] Anion gap in Serum or Plasma Ordered By: Millie Massey on 08-19-2024 Anion gap [Moles/Vol] 7 mmol/L 10-10 [facility] BUN/creatinine ratioOrdered By: Millie Massey on 08-19-2024 Urea nitrogen/Creatinine [Mass ratio] 28.6 mg/mg High - [facility] BUN/creatinine ratio 28.6 RATIO High 10-20 [facility] Basic Metabolic Profile (BMP )on 08-19-2024 BUN/CRE 28.6 RATIO High 10-20 [facility] Comment on above: Order Comment: Performed By: #### L 500.2500, L100.0500, L501.5200 ####[facility] [address] [place], [address] Calcium [Mass/Vol] 8.1 mg/dL Normal 7.6-11.0 [facility] Comment on above: Order Comment: Performed By: #### L 500.2500, L100.0500, L501.5200 ####[facility] [address] [place], [address] Chloride [Moles/Vol] 100 mmol/L Normal 98-108 [facility] Comment on above: Order Comment: Performed By: #### L 500.2500, L100.0500, L501.5200 ####[facility] [address] [place], [address] CO2 [Moles/Vol] 23.0 mmol/L Normal 21.0-32.0 [facility] Comment on above: Order Comment: Performed By: #### L 500.2500, L100.0500, L501.5200 ####[facility] [address] [place], [address] Creatinine [Mass/Vol] 1.34 mg/dL High 0.70-1.20 [facility] Comment on above: Order Comment: Performed By: #### L 500.2500, L100.0500, L501.5200 ####[facility] [address] [place], [address] GAP 7 Normal 5-15 [facility] Comment on above: Order Comment: Performed By: #### L 500.2500, L100.0500, L501.5200 ####[facility] [address] [place], [address] GFR/1.73 sq M.predicted among non-blacks MDRD (S/P/Bld) [Vol rate/Area] 45 mL/min/{1.73_m2} Low >60 [facility] Comment on above: Order Comment: Result Comment: mL/m in/1.73m2 CKD-EPI Creatinine Equation (2020) Performed By: #### L 500.2500, L100.0500, L501.5200 ####[facility] [address] [place], [address] Glucose [Mass/Vol] 89 mg/dL Normal 70-99 [facility] Comment on above: Order Comment: Performed By: #### L 500.2500, L100.0500, L501.5200 ####[facility] [address] [place], [address] Potassium [Moles/Vol] 6.8 mmol/L Invalid Interpretation Code 3.3-5.1 [facility] Comment on above: Order Comment: Result Comment: Hemo lysis present, Results??could be affected.??Critical Result(s) Called at: 0635 by: WALTER KENNEDY TO JACKIE SAUER??Results read back by same. Performed By: #### L 500.2500, L100.0500, L501.5200 ####[facility] [address] [place], [address] Sodium [Moles/Vol] 130 mmol/L Low 133-145 [facility] Comment on above: Order Comment: - Performed By: #### L 500.2500, L100.0500, L501.5200 ####[facility] [address] [place], [address] Urea nitrogen [Mass/Vol] 38 mg/dL High 4-19 [facility] Comment on above: Order Comment: - Performed By: #### L 500.2500, L100.0500, L501.5200 ####[facility] [address] [place], [address] CBC-Complete Blood Cnt No Di ffon 08-19-2024 Erythrocyte distribution width (RBC) [Ratio] 23.3 % High 11.6-14.6 [facility] Comment on above: Order Comment: Performed By: #### L 500.2500, L100.0500, L501.5200 ####[facility] [address] [place], [address] Hematocrit (Bld) [Volume fraction] 25.7 % Low 37-47 [facility] Comment on above: Order Comment: Performed By: #### L 500.2500, L100.0500, L501.5200 ####[facility] [address] [place], [address] Hemoglobin (Bld) [Mass/Vol] 7.8 g/dL Low 12.0-15.0 [facility] Comment on above: Order Comment: Performed By: #### L 500.2500, L100.0500, L501.5200 ####[facility] [address] [place], [address] MCH (RBC) [Entitic mass] 28.4 pg Normal 27.0-32.0 [facility] Comment on above: Order Comment: - Performed By: #### L 500.2500, L100.0500, L501.5200 ####[facility] [address] [place], [address] MCHC (RBC) [Mass/Vol] 30.4 g/dL Low 32-36 [facility] Comment on above: Order Comment: - Performed By: #### L 500.2500, L100.0500, L501.5200 ####[facility] [address] [place], [address] MCV (RBC) [Entitic vol] 93.5 fL Normal 81-99 [facility] Comment on above: Order Comment: - Performed By: #### L 500.2500, L100.0500, L501.5200 ####[facility] [address] [place], [address] Platelet mean volume (Bld) [Entitic vol] 10.2 fL Normal 6.2-12.0 [facility] Comment on above: Order Comment: - Performed By: #### L 500.2500, L100.0500, L501.5200 ####[facility] [address] [place], [address] Platelets (Bld) [#/Vol] 168 10*3/uL Normal 150-450 [facility] Comment on above: Order Comment: - Performed By: #### L 500.2500, L100.0500, L501.5200 ####[facility] [address] [place], [address] RBC (Bld) [#/Vol] 2.75 10*6/uL Low 4.2-5.4 [facility] Comment on above: Order Comment: - Performed By: #### L 500.2500, L100.0500, L501.5200 ####[facility] [address] [place], [address] RDW SD 76.4 fl High 35.1-43.9 [facility] Comment on above: Order Comment: Performed By: #### L 500.2500, L100.0500, L501.5200 ####[facility] [address] [place], [address] WBC (Bld) [#/Vol] 3.8 10*3/uL Low 4.4-11.0 [facility] Comment on above: Order Comment: Performed By: #### L 500.2500, L100.0500, L501.5200 ####[facility] [address] [place], [address] Calcium [Mass/Vol]Ordered By : Millie Massey on 08-19-2024 Serum or plasma calcium measurement (mass/volume) 8.1 mg/dL 7.6-11.0 [facility] Carbon dioxide, total [Moles /volume] in Central venous bloodOrdered By: Millie Massey on 08-19-2024 CO2 [Moles/Vol] 23.0 mmol/L 21.0-32.0 [facility] Carbon dioxide, total [Moles/volume] in Central venous blood 23.0 mmol/L 21.0-32.0 [facility] Chloride assayOrdered By: Carter Massey on 08-19-2024 Chloride [Moles/Vol] 100 mmol/L 98-108 [facility] Chloride assay 100 mmol/L 98-108 [facility] Creatinine [Mass/Vol]Ordered By: Millie Massey on 08-19-2024 Serum creatinine measurement (mass/volume) 1.34 mg/dL High 0.70-1.20 [facility] Culture, Blood (WB)on 2024 CUB Blood cultures x2, f rom two different sites No growth in 5 days. Normal [facility] Comment on above: Performed By: #### M 200.1000 ####[facility] [address] [place], [place], [id number] CUB Blood cultures x2, f rom two different sites No growth in 5 days. Normal [facility] Comment on above: Performed By: #### M 200.1000, L503.6005, L501.4021 ####[facility] [address] [place], [place], [id number] Erythrocyte distribution wid th (RBC) [Ratio]Ordered By: Millie Massey on 08-19-2024 Erythrocyte distribution width ratio 23.3 % High 11.6-14.6 [facility] Erythrocyte distribution width standard deviation 76.4 fl High 35.1-43.9 [facility] Erythrocyte distribution wid th ratioOrdered By: Millie Massey on 08-19-2024 Erythrocyte distribution width (RBC) [Ratio] 23.3 % High 11.6-14.6 [facility] Erythrocyte distribution wid th standard deviationOrdered By: Millie Massey on 08-19-2024 Erythrocyte distribution width (RBC) [Ratio] 76.4 fl High 35.1-43.9 [facility] GFR/1.73 sq M.predicted víctor g non-blacks MDRD (S/P/Bld) [Vol rate/Area]Ordered By: Millie Massey on 08-19-2024 Glomerular filtration rate (GFR) estimation/1.73 sq m using serum, plasma, or whole b 45 Low >60 [facility] Glomerular filtration rate ( GFR) estimation/1.73 sq m using serum, plasma, or whole bOrdered By: Millie Massey on 08-19-2024 GFR/1.73 sq M.predicted among non-blacks MDRD (S/P/Bld) [Vol rate/Area] 45 mL/min/{1.73_m2} Low >60 [facility] Glucose [Mass/Vol]Ordered By : Millie Massey on 08-19-2024 Serum glucose measurement (mass/volume) 89 mg/dL 70-99 [facility] Hematocrit Auto (Bld) [Volum e fraction]Ordered By: Millie Massey on 08-19-2024 Hematocrit (Bld) [Volume fraction] 25.7 % Low 37-47 [facility] Automated blood hematocrit (percentage) 25.7 % Low 37-47 [facility] Hemoglobin measurementOrdere d By: Millie Massey on 08-19-2024 Hemoglobin (Bld) [Mass/Vol] 7.8 g/dL Low 12.0-15.0 [facility] Hemoglobin measurement 7.8 g/dL Low 12.0-15.0 [facility] MCV (RBC) [Entitic vol]Order ed By: Millie Massey on 08-19-2024 MCV (mean corpuscular volume) determination 93.5 fL 81-99 [facility] MCV (mean corpuscular volume ) determinationOrdered By: Millie Massey on 08-19-2024 MCV (RBC) [Entitic vol] 93.5 fL 81-99 [facility] Magnesiumon 08-19-2024 Magnesium [Mass/Vol] 1.6 mg/dL Normal 1.5-2.2 [facility] Comment on above: Order Comment: Performed By: #### L 500.2500, L100.0500, L501.5200 ####[facility] [address] [place], [address] Magnesium (Unsp spec) [Mass/ Vol]Ordered By: Millie Massey on 08-19-2024 Magnesium measurement (mass/volume) 1.6 mg/dL 1.5-2.2 [facility] Magnesium measurement (mass/ volume)Ordered By: Millie Massey on 08-19-2024 Magnesium (Unsp spec) [Mass/Vol] 1.6 mg/dL 1.5-2.2 [facility] Mean corpuscular hemoglobin (MCH) determinationOrdered By: Millie Massey on 08-19-2024 MCH (RBC) [Entitic mass] 28.4 pg 27.0-32.0 [facility] Mean corpuscular hemoglobin (MCH) determination 28.4 pg 27.0-32.0 [facility] Mean corpuscular hemoglobin concentration (MCHC) determinationOrdered By: Millie Massey on 08-19-2024 Mean corpuscular hemoglobin concentration (MCHC) determination 30.4 g/dL Low 32-36 [facility] Mean platelet volume determi nationOrdered By: Millie Massey on 08-19-2024 Mean platelet volume determination 10.2 fl 6.2-12.0 [facility] Platelet countOrdered By: Carter Massey on 08-19-2024 Platelets (Bld) [#/Vol] 168 10*3/uL 150-450 [facility] Platelet count 168 K/mm3 150-450 [facility] Potassium (Unsp spec) [Mass/ Vol]Ordered By: Millie Massey on 08-19-2024 Potassium measurement (mass/volume) 6.8 mmol/L High 3.3-5.1 [facility] Potassium measurement (mass/ volume)Ordered By: Millie Massey on 08-19-2024 Potassium (Unsp spec) [Mass/Vol] 6.8 mmol/L High 3.3-5.1 [facility] RBC Auto (Bld) [#/Vol]Ordere d By: Millie Massey on 08-19-2024 RBC (Bld) [#/Vol] 2.75 10*6/uL Low 4.2-5.4 [facility] Automated blood erythrocyte count 2.75 M/mm3 Low 4.2-5.4 [facility] Serum creatinine measurement (mass/volume)Ordered By: Millie Massey on 08-19-2024 Creatinine [Mass/Vol] 1.34 mg/dL High 0.70-1.20 [facility] Serum glucose measurement (m ass/volume)Ordered By: Millie Massey on 08-19-2024 Glucose [Mass/Vol] 89 mg/dL 70-99 [facility] Serum or plasma calcium megan urement (mass/volume)Ordered By: Millie Massey on 08-19-2024 Calcium [Mass/Vol] 8.1 mg/dL 7.6-11.0 [facility] Serum or plasma urea nitroge n measurement (mass/volume)Ordered By: Millie Massey on 08-19-2024 Urea nitrogen [Mass/Vol] 38 mg/dL High 4-19 [facility] Sodium levelOrdered By: Silvana Massey on 08-19-2024 Sodium [Moles/Vol] 130 mmol/L Low 133-145 [facility] Sodium level 130 mmol/L Low 133-145 [facility] Urea nitrogen [Mass/Vol]Orde red By: Millie Massey on 08-19-2024 Serum or plasma urea nitrogen measurement (mass/volume) 38 mg/dL High 09-14 [facility] White blood cell (WBC) count Ordered By: Millie Massey on 08-19-2024 WBC (Bld) [#/Vol] 3.8 10*3/uL Low 4.4-11.0 [facility] White blood cell (WBC) count 3.8 K/mm3 Low 4.4-11.0 [facility] Body Fluid Culton 08-18-2024 BFC No growth aerobically. Normal [facility] Comment on above: Performed By: #### L 350.1000, L504.0250, L503.0300, L200.0200, L503.0100, M100.2900, M100.2000, M100.4001 ####[facility] [address] [place], [place], [address] Urine Cultureon 08-18-2024 URC Normal [facility] Comment on above: Performed By: #### M 100.2200 ####[facility] [address] [place], [place], [address] Absolute lymphocyte countOrd ered By: Nikolas Magaña on 08-17-2024 Lymphocytes Auto (Unsp spec) [#/Vol] 0.59 10*3/uL Low 0.83-4.51 [facility] Absolute neutrophil countOrd ered By: Nikolas Magaña on 08-17-2024 Absolute neutrophil count 3.2 X10^3/uL 2.0-7.7 [facility] Anion gap [Moles/Vol]Ordered By: Nikolas Magaña on 08-17-2024 Anion gap in Serum or Plasma 12 5-15 [facility] Anion gap in Serum or Plasma Ordered By: Nikolas Magaña on 08-17-2024 Anion gap [Moles/Vol] 12 mmol/L 5-15 [facility] Automated lymphocyte count a s percentage of total leukocytesOrdered By: Nikolas Magaña on 08-17-2024 Lymphocytes/100 WBC Auto (Unsp spec) 13.4 % Low 19-41 [facility] BUN/creatinine ratioOrdered By: Nikolas Magaña on 08-17-2024 Urea nitrogen/Creatinine [Mass ratio] 20.8 mg/mg High 10-20 [facility] BUN/creatinine ratio 20.8 RATIO High 10-20 [facility] Basic Metabolic Profile (BMP )on 08-17-2024 BUN/CRE 20.8 RATIO High 10-20 [facility] Comment on above: Performed By: #### L 100.0100, L500.2500 ####[facility] [address] [place], [address] Calcium [Mass/Vol] 8.2 mg/dL Normal 7.6-11.0 [facility] Comment on above: Performed By: #### L 100.0100, L500.2500 ####[facility] [address] [place], [address] Chloride [Moles/Vol] 101 mmol/L Normal 98-108 [facility] Comment on above: Performed By: #### L 100.0100, L500.2500 ####[facility] [address] [place], [address] CO2 [Moles/Vol] 19.8 mmol/L Low 21.0-32.0 [facility] Comment on above: Performed By: #### L 100.0100, L500.2500 ####[facility] [address] [place], [address] Creatinine [Mass/Vol] 1.07 mg/dL Normal 0.70-1.20 [facility] Comment on above: Performed By: #### L 100.0100, L500.2500 ####[facility] [address] [place], [address] ECRCL 42.17 ml/min Low 50-250 [facility] Comment on above: Performed By: #### L 100.0100, L500.2500 ####[facility] [address] [place], [address] GAP 12 Normal 5-15 [facility] Comment on above: Performed By: #### L 100.0100, L500.2500 ####[facility] [address] [place], [address] GFR/1.73 sq M.predicted among non-blacks MDRD (S/P/Bld) [Vol rate/Area] 59 mL/min/{1.73_m2} Low >60 [facility] Comment on above: Result Comment: mL/m in/1.73m2 CKD-EPI Creatinine Equation (2020) Performed By: #### L 100.0100, L500.2500 ####[facility] [address] [place], [address] Glucose [Mass/Vol] 83 mg/dL Normal 70-99 [facility] Comment on above: Performed By: #### L 100.0100, L500.2500 ####[facility] [address] [place], [address] Potassium [Moles/Vol] 4.7 mmol/L Normal 3.3-5.1 [facility] Comment on above: Result Comment: Hemo lysis present, Results??could be affected.?? Performed By: #### L 100.0100, L500.2500 ####[facility] [address] [place], [address] Sodium [Moles/Vol] 133 mmol/L Normal 133-145 [facility] Comment on above: Performed By: #### L 100.0100, L500.2500 ####[facility] [address] [place], [address] Urea nitrogen [Mass/Vol] 22 mg/dL High 09-14 [facility] Comment on above: Performed By: #### L 100.0100, L500.2500 ####[facility] [address] [place], [address] Basophil percentageOrdered B y: Nikolas Magaña on 08-17-2024 Basophils/100 WBC (Bld) 0.9 % 0-1 [facility] Basophil percentage 0.9 % 0-1 [facility] Blood polychromasia detectio n by light microscopyOrdered By: Nikolas Magaña on 08-17-2024 Polychromasia LM Ql (Bld) 2+ [facility] CBC W/Diff, Automatedon 07-28 OVALOCYTE 1+ Normal [facility] Comment on above: Performed By: #### L 100.0100, L500.2500 ####[facility] [address] [place], [address] Anisocytosis Ql (Bld) 1+ Normal [facility] Comment on above: Performed By: #### L 100.0100, L500.2500 ####[facility] [address] [place], [address] POLYCHROMASIA 2+ Normal [facility] Comment on above: Performed By: #### L 100.0100, L500.2500 ####[facility] [address] [place], [address] Calcium [Mass/Vol]Ordered By : Nikolas Magaña on 08-17-2024 Serum or plasma calcium measurement (mass/volume) 8.2 mg/dL 7.6-11.0 [facility] Carbon dioxide, total [Moles /volume] in Central venous bloodOrdered By: Nikolas Magaña on 08-17-2024 CO2 [Moles/Vol] 19.8 mmol/L Low 21.0-32.0 [facility] Carbon dioxide, total [Moles/volume] in Central venous blood 19.8 mmol/L Low 21.0-32.0 [facility] Chloride assayOrdered By: Oscar Magaña on 08-17-2024 Chloride [Moles/Vol] 101 mmol/L 98-108 [facility] Chloride assay 101 mmol/L 98-108 [facility] Creatinine [Mass/Vol]Ordered By: Nikolas Magaña on 08-17-2024 Serum creatinine measurement (mass/volume) 1.07 mg/dL 0.70-1.20 [facility] Eosinophil percentageOrdered By: Nikolas Magñaa on 08-17-2024 Eosinophils/100 WBC (Bld) 3.4 % 0-5 [facility] Eosinophil percentage 3.4 % 0-5 [facility] Erythrocyte distribution wid th (RBC) [Ratio]Ordered By: Nikolas Magaña on 08-17-2024 Erythrocyte distribution width ratio 23.1 % High 11.6-14.6 [facility] Erythrocyte distribution wid th ratioOrdered By: Nikolas Magaña on 08-17-2024 Erythrocyte distribution width (RBC) [Ratio] 23.1 % High 11.6-14.6 [facility] Erythrocyte distribution wid th standard deviationOrdered By: Nikolas Magaña on 08-17-2024 Erythrocyte distribution width (RBC) [Ratio] 74.1 fl High 35.1-43.9 [facility] Erythrocyte distribution width standard deviation 74.1 fl High 35.1-43.9 [facility] Estimation of creatinine austen aranceOrdered By: Nikolas Magaña on 08-17-2024 Estimation of creatinine clearance 42.17 ml/min Low 50-250 [facility] GFR/1.73 sq M.predicted víctor g non-blacks MDRD (S/P/Bld) [Vol rate/Area]Ordered By: Nikolas Magaña on 08-17-2024 Glomerular filtration rate (GFR) estimation/1.73 sq m using serum, plasma, or whole b 59 Low >60 [facility] Glomerular filtration rate ( GFR) estimation/1.73 sq m using serum, plasma, or whole bOrdered By: Nikolas Magaña on 08-17-2024 GFR/1.73 sq M.predicted among non-blacks MDRD (S/P/Bld) [Vol rate/Area] 59 mL/min/{1.73_m2} Low >60 [facility] Glucoseon 08-17-2024 Glucose [Mass/Vol] 73 mg/dL Normal 70-99 [facility] Comment on above: Performed By: #### L 501.0100 ####[facility] [address] [place], [address] Glucose [Mass/Vol]Ordered By : Nikolas Magaña on 08-17-2024 Serum glucose measurement (mass/volume) 83 mg/dL 70-99 [facility] Hematocrit Auto (Bld) [Volum e fraction]Ordered By: Nikolas Magaña on 08-17-2024 Hematocrit (Bld) [Volume fraction] 34.6 % Low 37-47 [facility] Automated blood hematocrit (percentage) 34.6 % Low 37-47 [facility] Hemoglobin measurementOrdere d By: Nikolas Magaña on 08-17-2024 Hemoglobin (Bld) [Mass/Vol] 10.5 g/dL Low 12.0-15.0 [facility] Hemoglobin measurement 10.5 g/dL Low 12.0-15.0 [facility] Immature granulocytes/100 WB C Auto (Bld)Ordered By: Nikolas Magaña on 08-17-2024 Immature granulocytes/100 WBC (Bld) 1.800 % High 0.0-0.9 [facility] Automated immature granulocyte percentage 1.800 % High 0.0-0.9 [facility] Lymphocytes Auto (Unsp spec) [#/Vol]Ordered By: Nikolas Magaña on 08-17-2024 Absolute lymphocyte count 0.59 X10^3/uL Low 0.83-4.51 [facility] Lymphocytes/100 WBC Auto (Un sp spec)Ordered By: Nikolas Magaña on 08-17-2024 Automated lymphocyte count as percentage of total leukocytes 13.4 % Low 19-41 [facility] MCV (RBC) [Entitic vol]Order ed By: Nikolas Magaña on 08-17-2024 MCV (mean corpuscular volume) determination 93.5 fL 81-99 [facility] MCV (mean corpuscular volume ) determinationOrdered By: Nikolas Magaña on 08-17-2024 MCV (RBC) [Entitic vol] 93.5 fL 81-99 [facility] Mean corpuscular hemoglobin (MCH) determinationOrdered By: Nikolas Magaña on 08-17-2024 MCH (RBC) [Entitic mass] 28.4 pg 27.0-32.0 [facility] Mean corpuscular hemoglobin (MCH) determination 28.4 pg 27.0-32.0 [facility] Mean corpuscular hemoglobin concentration (MCHC) determinationOrdered By: Nikolas Magaña on 08-17-2024 Mean corpuscular hemoglobin concentration (MCHC) determination 30.3 g/dL Low 32-36 [facility] Mean platelet volume determi nationOrdered By: Nikolas Magaña on 08-17-2024 Mean platelet volume determination 9.2 fl 6.2-12.0 [facility] Monocyte percentageOrdered B y: Nikolas Magaña on 08-17-2024 Monocytes/100 WBC (Bld) 7.0 % 0-10 [facility] Monocyte percentage 7.0 % 0-10 [facility] Neutrophil percentageOrdered By: Nikolas Magaña on 08-17-2024 Neutrophils/100 WBC (Bld) 73.5 % High 47-70 [facility] Neutrophil percentage 73.5 % High 47-70 [facility] Nucleated red blood cell per centageOrdered By: Nikolas Magaña on 08-17-2024 Nucleated red blood cell percentage 0 % 0-5 [facility] Ovalocyte detectionOrdered B y: Nikolas Magaña on 08-17-2024 Ovalocytes LM Ql (Bld) 1+ [facility] Ovalocyte detection 1+ [facility] Platelet countOrdered By: Oscar Magaña on 08-17-2024 Platelets (Bld) [#/Vol] 146 10*3/uL Low 150-450 [facility] Platelet count 146 K/mm3 Low 150-450 [facility] Polychromasia LM Ql (Bld)Ord ered By: Nikolas Magaña on 08-17-2024 Blood polychromasia detection by light microscopy 2+ [facility] Potassium (Unsp spec) [Mass/ Vol]Ordered By: Nikolas Magaña on 08-17-2024 Potassium measurement (mass/volume) 4.7 mmol/L 3.3-5.1 [facility] Potassium measurement (mass/ volume)Ordered By: Nikolas Magaña on 08-17-2024 Potassium (Unsp spec) [Mass/Vol] 4.7 mmol/L 3.3-5.1 [facility] RBC Auto (Bld) [#/Vol]Ordere d By: Nikolas Magaña on 08-17-2024 RBC (Bld) [#/Vol] 3.70 10*6/uL Low 4.2-5.4 [facility] Automated blood erythrocyte count 3.70 M/mm3 Low 4.2-5.4 [facility] Serum creatinine measurement (mass/volume)Ordered By: Nikolas Magaña on 08-17-2024 Creatinine [Mass/Vol] 1.07 mg/dL 0.70-1.20 [facility] Serum glucose measurement (m ass/volume)Ordered By: Nikolas Magaña on 08-17-2024 Glucose [Mass/Vol] 83 mg/dL 70-99 [facility] Serum or plasma calcium megan urement (mass/volume)Ordered By: Nikolas Magaña on 08-17-2024 Calcium [Mass/Vol] 8.2 mg/dL 7.6-11.0 [facility] Serum or plasma urea nitroge n measurement (mass/volume)Ordered By: Nikolas Magaña on 08-17-2024 Urea nitrogen [Mass/Vol] 22 mg/dL High 09-14 [facility] Sodium levelOrdered By: Hemanth Magaña on 08-17-2024 Sodium [Moles/Vol] 133 mmol/L 133-145 [facility] Sodium level 133 mmol/L 133-145 [facility] Urea nitrogen [Mass/Vol]Orde red By: Nikolas Magaña on 08-17-2024 Serum or plasma urea nitrogen measurement (mass/volume) 22 mg/dL High 09-14 [facility] Venous duplex ultrasound rep ortOrdered By: Saul Silva on 08-17-2024 US Vein [facility] Other Phone: White blood cell (WBC) count Ordered By: Nikolas Magaña on 08-17-2024 WBC (Bld) [#/Vol] 4.4 10*3/uL 4.4-11.0 [facility] White blood cell (WBC) count 4.4 K/mm3 4.4-11.0 [facility] Basic Metabolic Profile (BMP )on 08-16-2024 BUN/CRE 25.9 RATIO High 10-20 [facility] Comment on above: Performed By: #### L 100.0100, L500.2500 ####[facility] [address] [place], [address] Calcium [Mass/Vol] 8.0 mg/dL Normal 7.6-11.0 [facility] Comment on above: Performed By: #### L 100.0100, L500.2500 ####[facility] [address] [place], [address] Chloride [Moles/Vol] 102 mmol/L Normal 98-108 [facility] Comment on above: Performed By: #### L 100.0100, L500.2500 ####[facility] [address] [place], [address] CO2 [Moles/Vol] 20.8 mmol/L Low 21.0-32.0 [facility] Comment on above: Performed By: #### L 100.0100, L500.2500 ####[facility] [address] [place], [address] Creatinine [Mass/Vol] 1.27 mg/dL High 0.70-1.20 [facility] Comment on above: Performed By: #### L 100.0100, L500.2500 ####[facility] [address] [place], [address] ECRCL 38.36 ml/min Low 50-250 [facility] Comment on above: Performed By: #### L 100.0100, L500.2500 ####[facility] [address] [place], [address] GAP 10 Normal 5-15 [facility] Comment on above: Performed By: #### L 100.0100, L500.2500 ####[facility] [facility] [address] [place], [address] GFR/1.73 sq M.predicted among non-blacks MDRD (S/P/Bld) [Vol rate/Area] 48 mL/min/{1.73_m2} Low >60 [facility] Comment on above: Result Comment: mL/m in/1.73m2 CKD-EPI Creatinine Equation (2020) Performed By: #### L 100.0100, L500.2500 ####[facility] [address] [place], [address] Glucose [Mass/Vol] 89 mg/dL Normal 70-99 [facility] Comment on above: Performed By: #### L 100.0100, L500.2500 ####[facility] [address] [place], [address] Potassium [Moles/Vol] 5.0 mmol/L Normal 3.3-5.1 [facility] Comment on above: Performed By: #### L 100.0100, L500.2500 ####[facility] [address] [place], [address] Sodium [Moles/Vol] 132 mmol/L Low 133-145 [facility] Comment on above: Performed By: #### L 100.0100, L500.2500 ####[facility] [address] [place], [address] Urea nitrogen [Mass/Vol] 33 mg/dL High 4-19 [facility] Comment on above: Performed By: #### L 100.0100, L500.2500 ####[facility] [address] [place], [address] Bedside Glucoseon 08-16-2024 FINGERSTICK GLU 24 mg/dL Invalid Interpretation Code 74-106 [facility] Comment on above: Result Comment: Dr George mathis FollowedMANAGEMENT OF PATIENT CARE PER NURSING PROTOCOL Performed By: #### L 501.080 ####[facility] [address] [place], [address] FINGERSTICK GLU 57 mg/dL Low 74-106 [facility] Comment on above: Result Comment: LUIZA GEMENT OF PATIENT CARE PER NURSING PROTOCOL Performed By: #### L 501.080 ####[facility] [address] [place], [address] FINGERSTICK GLU 80 mg/dL Normal 74-106 [facility] Comment on above: Result Comment: LUIZA GEMENT OF PATIENT CARE PER NURSING PROTOCOL Performed By: #### L 501.080 ####[facility] [address] [place], [address] CBC W/Diff, Automatedon - Anisocytosis Ql (Bld) 1+ Normal [facility] Comment on above: Performed By: #### L 100.0100, L500.2500 ####[facility] [address] [place], [address] PLT EST A Normal ADEQ [facility] Comment on above: Performed By: #### L 100.0100, L500.2500 ####[facility] [address] [place], [address] POLYCHROMASIA 1+ Normal [facility] Comment on above: Performed By: #### L 100.0100, L500.2500 ####[facility] [address] [place], [address] Glucoseon 08-16-2024 Glucose [Mass/Vol] 91 mg/dL Normal 70-99 [facility] Comment on above: Performed By: #### L 501.0100 ####[facility] [address] [place], [address] Glucose [Mass/Vol] 109 mg/dL High 70-99 [facility] Comment on above: Performed By: #### L 501.0100 ####[facility] [address] [place], [address] Glucose measurement at bedsi deOrdered By: Nikolas Magaña on 08-16-2024 Glucose [Mass/Vol] 24 mg/dL Low 74-106 [facility] Glucose measurement at bedside 24 mg/dL Low 74-106 [facility] Platelet estimateOrdered By: iNkolas Magaña on 08-16-2024 Platelets LM Ql (Bld) A ADEQ [facility] Platelets LM Ql (Bld)Ordered By: Nikolas Magaña on 08-16-2024 Platelet estimate A ADEQ [facility] Amylase (Body fld) [Catalyti c activity/Vol]Ordered By: Nikolas Magaña on 08-15-2024 Amylase body fluid 30 U/L . [facility] Amylase body fluidOrdered By : Nikolas Magaña on 08-15-2024 Amylase (Body fld) [Catalytic activity/Vol] 30 U/L . [facility] Anaerobic cultureOrdered By: Nikolas Magaña on 08-15-2024 Bacteria identified Anaer cx Nom (Unsp spec) No growth in 5 days. [facility] Appearance (Body fld)Ordered By: Nikolas Magaña on 08-15-2024 Body fluid appearance (nominal result) CLEAR [facility] Bacteria identified Anaer cx Nom (Unsp spec)Ordered By: Nikolas Magaña on 08-15-2024 Anaerobic culture No growth in 5 days. [facility] Bedside Glucoseon 08-15-2024 FINGERSTICK GLU 82 mg/dL Normal 74-106 [facility] Comment on above: Result Comment: LUIZA GEMENT OF PATIENT CARE PER NURSING PROTOCOL Performed By: #### L 501.080 ####[facility] [address] [place], [address] FINGERSTICK GLU 92 mg/dL Normal 74-106 [facility] Comment on above: Result Comment: LUIZA GEMENT OF PATIENT CARE PER NURSING PROTOCOL Performed By: #### L 501.080 ####[facility] [address] [place], [address] FINGERSTICK GLU 90 mg/dL Normal 74-106 [facility] Comment on above: Result Comment: LUIZA GEMENT OF PATIENT CARE PER NURSING PROTOCOL Performed By: #### L 501.080 ####[facility] [address] [place], [address] FINGERSTICK GLU 70 mg/dL Low 74-106 [facility] Comment on above: Result Comment: LUIZA GEMENT OF PATIENT CARE PER NURSING PROTOCOL Performed By: #### L 501.080 ####[facility] [address] [place], [address] FINGERSTICK GLU 104 mg/dL Normal 74-106 [facility] Comment on above: Result Comment: LUIZA GEMENT OF PATIENT CARE PER NURSING PROTOCOL Performed By: #### L 501.080 ####[facility] [address] [place], [address] Body Fluid Cell Count+Diffon 08-15-2024 Lymphocytes (Bld) [#/Vol] 32 10*3/uL Normal [facility] Comment on above: Order Comment: The r eference interval(s) and other method performancespecifications are unavailable for this body fluid.Comparison of the result with concentration in the blood,serum, or plasma is recommended. Performed By: #### L 350.1000, L504.0250, L503.0300, L200.0200, L503.0100, M100.2900, M100.2000, M100.4001 ####[facility] [address] [place], [address] MESOTHELIAL 4 Normal [facility] Comment on above: Order Comment: The r eference interval(s) and other method performancespecifications are unavailable for this body fluid.Comparison of the result with concentration in the blood,serum, or plasma is recommended. Performed By: #### L 350.1000, L504.0250, L503.0300, L200.0200, L503.0100, M100.2900, M100.2000, M100.4001 ####[facility] [address] [place], [address] MONO/BF 60 Normal [facility] Comment on above: Order Comment: The r eference interval(s) and other method performancespecifications are unavailable for this body fluid.Comparison of the result with concentration in the blood,serum, or plasma is recommended. Performed By: #### L 350.1000, L504.0250, L503.0300, L200.0200, L503.0100, M100.2900, M100.2000, M100.4001 ####[facility] [address] [place], [address] PMN 4 Normal [facility] Comment on above: Order Comment: The r eference interval(s) and other method performancespecifications are unavailable for this body fluid.Comparison of the result with concentration in the blood,serum, or plasma is recommended. Performed By: #### L 350.1000, L504.0250, L503.0300, L200.0200, L503.0100, M100.2900, M100.2000, M100.4001 ####[facility] [address] [place], [address] Body fluid appearance (nomin al result)Ordered By: Nikolas Magaña on 08-15-2024 Appearance (Body fld) CLEAR [facility] Body fluid color determinati onOrdered By: Nikolas Magaña on 08-15-2024 Color (Body fld) LT YEL [facility] Body fluid cultureOrdered By : Nikolas Magaña on 08-15-2024 Body fluid culture No growth aerobically. [facility] Body fluid lactate dehydroge nase measurement (enzymatic activity/volume) by pyruvateOrdered By: Nikolas Magaña on 08-15-2024 LDH Pyruvate to lactate reaction (Body fld) [Catalytic activity/Vol] 51 Units/L Not Establ. [facility] Body fluid leukocytes count (number/volume)Ordered By: Nikolas Magaañ on 08-15-2024 WBC (Body fld) [#/Vol] 0.023 10*3/uL [facility] Body fluid lymphocytes/100 l eukocytesOrdered By: Nikolas Magaña on 08-15-2024 Lymphocytes/100 WBC (Body fld) 32 % [facility] Body fluid mesothelial cell percentageOrdered By: Nikolas Magaña on 08-15-2024 Mesothelial cells/100 WBC (Body fld) 4 % [facility] Body fluid mononuclear cell countOrdered By: Nikolas Magaña on 08-15-2024 Body fluid mononuclear cell count 0.021 10^3/uL [facility] Body fluid mononuclear cell percentageOrdered By: Nikolas Magaña on 08-15-2024 Mononuclear cells/100 WBC (Body fld) 91.3 % [facility] Body fluid pHOrdered By: Myke Magaña on 08-15-2024 pH (Body fld) 7.3 [pH] Not Estab. [facility] Body fluid polymorphonuclear leukocyte countOrdered By: Nikolas Magaña on 08-15-2024 Body fluid polymorphonuclear leukocyte count 0.002 10^3/uL [facility] Body fluid protein measureme nt (mass/volume)Ordered By: Nikolas Magaña on 08-15-2024 Protein (Body fld) [Mass/Vol] 1.9 g/dL Not Establ. [facility] Body fluid segmented neutrop hils count (number/volume)Ordered By: Nikolas Magaña on 08-15-2024 Segmented neutrophils (Body fld) [#/Vol] 4 % [facility] Body fluid segmented neutrophils count (number/volume) 4 % [facility] Body fluid total cell countO rdered By: Nikolas Magaña on 08-15-2024 Cells Counted Total (Body fld) [#] 0.024 10^3/ul High 0.000-0.00 0 [facility] CBC W/Diff, Automatedon 07-28 Anisocytosis Ql (Bld) 1+ Normal [facility] Comment on above: Performed By: #### L 500.4100, L501.9520, L503.7505, L100.0100 ####[facility] [address] [place], [place], [id number] Calculated very low density lipoprotein (VLDL) cholesterol measurementOrdered By: Nikolas Magaña on 08-15-2024 Calculated very low density lipoprotein (VLDL) cholesterol measurement 14 mg/dL [facility] Calculated very low density lipoprotein (VLDL) cholesterol measurement 14 mg/dL 40 [facility] Cells Counted Total (Body fl d) [#]Ordered By: Nikolas Magaña on 08-15-2024 Body fluid total cell count 0.024 10^3/ul High 0.000-0.00 0 [facility] Chest Insp/Exp 2 Viewon 07-28 Chest Insp/Exp 2 View Normal [facility] Cholesterol [Mass/Vol]Ordere d By: Nikolas Magaña on 08-15-2024 Serum or plasma cholesterol measurement (mass/volume) 62 mg/dL <201 [facility] Cholesterol in HDL [Mass/Vol ]Ordered By: Nikolas Magaña on 08-15-2024 Serum or plasma cholesterol in HDL measurement (mass/volume) 25 mg/dL Low >40 [facility] Color (Body fld)Ordered By: Nikolas Magaña on 08-15-2024 Body fluid color determination LT YEL [facility] Consultation - Nephrologyon 08-15-2024 Consultation - Nephrology Normal [facility] Cytology report Cyto stain D oc (Body fld)Ordered By: Nikolas Magaña on 08-15-2024 Cytology report of Body fluid Cyto stain SEE PATHOLOGY REPORT [facility] Cytology report of Body flui d Cyto stainOrdered By: Nikolas Magaña on 08-15-2024 Cytology report Cyto stain Doc (Body fld) SEE PATHOLOGY REPORT [facility] Cytology, Body Fluid / CSFon 08-15-2024 CYTOLOGY,BF/CSF SEE PATHOLOGY REPORT Normal [facility] Comment on above: Result Comment: Spec imen submitted to Anatomical Pathology Department fortesting. Performed By: #### L 350.1000, L504.0250, L503.0300, L200.0200, L503.0100, M100.2900, M100.2000, M100.4001 ####[facility] [address] [place], [address] Echocardiogram study reportO rdered By: Tevin Nicholas on 08-15-2024 Study report [facility] Work Phone: [phone] Glucose, Body Fluidon 2024 GLUC, BODY FLD 111 mg/dL Normal Not Establ. [facility] Comment on above: Performed By: #### L 350.1000, L504.0250, L503.0300, L200.0200, L503.0100, M100.2900, M100.2000, M100.4001 ####[facility] [address] [place], [address] Glucose, body fluidOrdered B y: Nikolas Magaña on 08-15-2024 Glucose, body fluid 111 mg/dL Not Establ. [facility] Gram Stainon 08-15-2024 GS Centrifuged Specimen ? Culture performed on centrifuged specimen Gram Stain Rare White Blood Cells No organisms seen Normal [facility] Comment on above: Performed By: #### L 350.1000, L504.0250, L503.0300, L200.0200, L503.0100, M100.2900, M100.2000, M100.4001 ####[facility] [address] [place], [place], [id number] Gram stainOrdered By: Robb Magaña on 08-15-2024 Microscopic observation Gram stain Nom (Unsp spec) [facility] L503.7505on 08-15-2024 Natriuretic peptide B (Bld) [Mass/Vol] 02172 pg/mL High <=900 [facility] Comment on above: Result Comment: Hear t Failure Unlikely: < 300 pg/mLHeart Failure Likely< 50 Years: > 450 pg/mL50-75 Years: > 900 pg/mL>75 Years: > 1800 pg/mL Performed By: #### L 500.4100, L501.9520, L503.7505, L100.0100 ####[facility] [address] [place], [address] LDH Pyruvate to lactate reac tion (Body fld) [Catalytic activity/Vol]Ordered By: Nikolas Magaña on 08-15-2024 Body fluid lactate dehydrogenase measurement (enzymatic activity/volume) by pyruvate 51 Units/L Not Establ. [facility] LDH,Body Fluidon 08-15-2024 LDH,BF 51 Units/L Normal Not Establ. [facility] Comment on above: Performed By: #### L 350.1000, L504.0250, L503.0300, L200.0200, L503.0100, M100.2900, M100.2000, M100.4001 ####[facility] [address] [place], [address] LDL calc ser/plasOrdered By: Nikolas Magaña on 08-15-2024 Cholesterol in LDL [Mass/Vol] 23 mg/dL [facility] LDL calc ser/plas 23 mg/dL [facility] Lipid Profileon 08-15-2024 CHOL:HDL 2.48 Normal [facility] Comment on above: Performed By: #### L 500.4100, L501.9520, L503.7505, L100.0100 ####[facility] [address] [place], [address] Cholesterol [Mass/Vol] 62 mg/dL Normal <=200 [facility] Comment on above: Result Comment: Chol esterol level, Desirable <200 mg/dLBorderline high cholesterol 200-239 mg/dLHigh cholesterol >=240 mg/dLRecommendations of the NCEP Adult Treatment Panel for thefollowing risk-cutoff thresholds for the [place] Americanpulation. Performed By: #### L 500.4100, L501.9520, L503.7505, L100.0100 ####[facility] [address] [place], [address] Cholesterol in HDL [Mass/Vol] 25 mg/dL Low [facility] Comment on above: Result Comment: Lucila onal Cholesterol Education Program (NCEP) guidelines:<40 mg/dL: Low HDL-cholesterol (major risk factor for CHD)>= 60 mg/dL: High HDL-cholesterol (negative risk factor forCHD)HDL-cholesterol is affected by a number of factors, e.g.smoking, exercise, hormones, sex and age. Performed By: #### L 500.4100, L501.9520, L503.7505, L100.0100 ####[facility] [address] [place], [address] Cholesterol in LDL [Mass/Vol] 23 mg/dL Normal [facility] Comment on above: Result Comment: Bord vfdupx=917-119 mg/dL Higher Txmk=620 mg/dL or greater Performed By: #### L 500.4100, L501.9520, L503.7505, L100.0100 ####[facility] [address] [place], [address] Cholesterol in VLDL [Mass/Vol] 14 mg/dL Normal 5-40 [facility] Comment on above: Performed By: #### L 500.4100, L501.9520, L503.7505, L100.0100 ####[facility] [address] [place], [address] Triglyceride [Mass/Vol] 71 mg/dL Normal [facility] Comment on above: Result Comment: The drugs N-Acetylcysteine and Metamizole may falselydepress this assay.Normal range: <150 mg/dLBorderline High: 150-199 mg/dLHigh: 200-499 mg/dLVery High: >500 mg/dL Performed By: #### L 500.4100, L501.9520, L503.7505, L100.0100 ####[facility] [address] [place], [address] Lymphocytes/100 WBC (Body fl d)Ordered By: Nikolas Magaña on 08-15-2024 Body fluid lymphocytes/100 leukocytes 32 % [facility] Modified Barium Swallow Stud yon 08-15-2024 Modified Barium Swallow Study Normal [facility] Monocyte detectionOrdered By : Nikolas Magaña on 08-15-2024 Monocytes/100 WBC (Bld) 60 % [facility] Monocyte detection 60 % [facility] Mononuclear cells/100 WBC (B richie fld)Ordered By: Nikolas Magaña on 08-15-2024 Body fluid mononuclear cell percentage 91.3 % [facility] No Panel InformationOrdered By: Nikolas Magaña on 08-15-2024 6 /mm3 [facility] SEE COMMENT [facility] [address] pg/mL High <900 [facility] Operative Reporton Operative Report Normal [facility] Pathologist interpretation ( Body fld) [Interp]Ordered By: Nikolas Magaña on 08-15-2024 Pathologist interpretation of Body fluid tests May follow [facility] Pathologist interpretation o f Body fluid testsOrdered By: Nikolas Magaña on 08-15-2024 Pathologist interpretation (Body fld) [Interp] May follow [facility] Polymorphonuclear (PMN) leuk ocyte countOrdered By: Nikolas Magaña on 08-15-2024 Polymorphonuclear (PMN) leukocyte count 8.7 % [facility] Protein (Body fld) [Mass/Vol ]Ordered By: Nikolas Magaña on 08-15-2024 Body fluid protein measurement (mass/volume) 1.9 g/dL Not Establ. [facility] Protein, Body Fluidon 2024 Protein [Mass/Vol] 1.9 g/dL Normal Not Establ. [facility] Comment on above: Performed By: #### L 350.1000, L504.0250, L503.0300, L200.0200, L503.0100, M100.2900, M100.2000, M100.4001 ####[facility] [address] [place], [place], [id number] Screening total cholesterol/ high density lipoprotein (HDL) cholesterol ratioOrdered By: Nikolas Magaña on 08-15-2024 Screening total cholesterol/high density lipoprotein (HDL) cholesterol ratio 2.48 [facility] Serum or plasma cholesterol in HDL measurement (mass/volume)Ordered By: Nikolas Magaña on 08-15-2024 Cholesterol in HDL [Mass/Vol] 25 mg/dL Low >40 [facility] Serum or plasma cholesterol measurement (mass/volume)Ordered By: Nikolas Magaña on 08-15-2024 Cholesterol [Mass/Vol] 62 mg/dL <201 [facility] Special Stain Group IIon Special Stain Group II Normal [facility] Comment on above: Performed By: #### P SSII ####[facility] [address] [place], [place], [id number] Specimen source Nom (Body fl d)Ordered By: Nikolas Magaña on 08-15-2024 Specimen source identification of body fluid THORACENTESIS [facility] Specimen source identificati on of body fluidOrdered By: Nikolas Magaña on 08-15-2024 Specimen source Nom (Body fld) THORACENTESIS [facility] TSH DL <= 0.005 mIU/L QnOrde red By: Nikolas Magaña on 08-15-2024 TSH Qn 10.600 uIU/mL High 0.300-4.20 0 [facility] Serum or plasma thyroid stimulating hormone (TSH) measurement by high sensitivity met 10.600 uIU/mL High 0.300-4.20 0 [facility] Thyroid Stim Hormone (TSH)on 08-15-2024 TSH 10.600 uIU/mL High 0.300-4.20 0 [facility] Comment on above: Performed By: #### L 500.4100, L501.9520, L503.7505, L100.0100 ####[facility] [address] [place], [place], [id number] Triglycerides measurementOrd ered By: Nikolas Magaña on 08-15-2024 Triglycerides measurement 71 mg/dL <199 [facility] WBC (Body fld) [#/Vol]Ordere d By: Nikolas Magaña on 08-15-2024 Body fluid leukocytes count (number/volume) 0.023 10^3/uL [facility] pH (Body fld)Ordered By: Myke Magaña on 08-15-2024 Body fluid pH 7.3 Not Estab. [facility] 12 Lead EKGon 08-14-2024 12 Lead EKG Normal [facility] ALP [Catalytic activity/Vol] Ordered By: Ciaran Rodrigez on 08-14-2024 Serum or plasma alkaline phosphatase measurement 71 U/L 35-104 [facility] ALT [Catalytic activity/Vol] Ordered By: Ciaran Rodrigez on 08-14-2024 Serum or plasma alanine aminotransferase (ALT) measurement 9 U/L <35 [facility] Absolute neutrophil countOrd ered By: Ciaran Rodrigez on 08-14-2024 Absolute neutrophil count 7.1 X10^3/uL 2.0-7.7 [facility] Activated partial thrombopla stin time (aPTT) in platelet poor plasma by coagulation aOrdered By: Ciaran Rodrigez on 08-14-2024 aPTT Coag (PPP) [Time] 33.6 s 24.1-36.2 [facility] Albumin [Mass/Vol]Ordered By : Ciaran Rodrigez on 08-14-2024 Serum or plasma albumin measurement (mass/volume) 2.0 g/dL Low 3.4-4.8 [facility] Albumin/Globulin [Mass ratio ]Ordered By: Ciaran Rodrigez on 08-14-2024 Serum or plasma albumin/globulin mass ratio 0.6 RATIO Low 0.9-2.4 [facility] Anion gap [Moles/Vol]Ordered By: Ciaran Rodrigez on 08-14-2024 Anion gap in Serum or Plasma 9 5-15 [facility] Anion gap [Moles/Vol]Ordered By: Millie Massey on 08-14-2024 Anion gap in Serum or Plasma 7 5-15 [facility] Anion gap in Serum or Plasma Ordered By: Millie Massey on 08-14-2024 Anion gap [Moles/Vol] 7 mmol/L 5-15 [facility] Arterial patency Wrist arter y --pre arterial punctureOrdered By: Ciaran Walsh on 08-14-2024 Assessment of wrist artery patency prior to arterial puncture Positive [facility] Assessment of wrist artery p atency prior to arterial punctureOrdered By: Ciaran Rodrigez on 08-14-2024 Arterial patency Wrist artery --pre arterial puncture Positive [facility] BUN/creatinine ratioOrdered By: Ciaran Rodrigez on 08-14-2024 BUN/creatinine ratio 29.1 RATIO High 10- [facility] BUN/creatinine ratioOrdered By: Millie Massey on 08-14-2024 Urea nitrogen/Creatinine [Mass ratio] 28.9 mg/mg High - [facility] BUN/creatinine ratio 28.9 RATIO High - [facility] Base excess Calc (BldV) [Mol es/Vol]Ordered By: Ciaran Rodrigez on 08-14-2024 Blood base excess determination -3 mmol/L Low -2-2 [facility] Basic Metabolic Profile (BMP )on 08-14-2024 BUN/CRE 28.9 RATIO High [facility] Comment on above: Order Comment: 206 Performed By: #### L 500.4100, L100.4500, L506.1001, L500.2500, L501.9520, L100.0500, L501.5200, L503.0106 ####[facility] [address] [place], [address] Calcium [Mass/Vol] 7.8 mg/dL Normal 7.6-11.0 [facility] Comment on above: Order Comment: 206 Performed By: #### L 500.4100, L100.4500, L506.1001, L500.2500, L501.9520, L100.0500, L501.5200, L503.0106 ####[facility] [address] [place], [address] Chloride [Moles/Vol] 105 mmol/L Normal 98-108 [facility] Comment on above: Order Comment: 206 Performed By: #### L 500.4100, L100.4500, L506.1001, L500.2500, L501.9520, L100.0500, L501.5200, L503.0106 ####[facility] [address] [place], [address] CO2 [Moles/Vol] 19.9 mmol/L Low 21.0-32.0 [facility] Comment on above: Order Comment: 206 Performed By: #### L 500.4100, L100.4500, L506.1001, L500.2500, L501.9520, L100.0500, L501.5200, L503.0106 ####[facility] [address] [place], [address] Creatinine [Mass/Vol] 1.34 mg/dL High 0.70-1.20 [facility] Comment on above: Order Comment: 206 Performed By: #### L 500.4100, L100.4500, L506.1001, L500.2500, L501.9520, L100.0500, L501.5200, L503.0106 ####[facility] [address] [place], [place], [id number] GAP 7 Normal 5-15 [facility] Comment on above: Order Comment: 206 Performed By: #### L 500.4100, L100.4500, L506.1001, L500.2500, L501.9520, L100.0500, L501.5200, L503.0106 ####[facility] [address] [place], [place], [phone] GFR/1.73 sq M.predicted among non-blacks MDRD (S/P/Bld) [Vol rate/Area] 45 mL/min/{1.73_m2} Low >60 [facility] Comment on above: Order Comment: 206 Result Comment: mL/m in/1.73m2 CKD-EPI Creatinine Equation (2020) Performed By: #### L 500.4100, L100.4500, L506.1001, L500.2500, L501.9520, L100.0500, L501.5200, L503.0106 ####[facility] [address] [place], [place], [id number] Glucose [Mass/Vol] 84 mg/dL Normal 70-99 [facility] Comment on above: Order Comment: 206 Performed By: #### L 500.4100, L100.4500, L506.1001, L500.2500, L501.9520, L100.0500, L501.5200, L503.0106 ####[facility] [address] [place], [address] Potassium [Moles/Vol] 5.3 mmol/L High 3.3-5.1 [facility] Comment on above: Order Comment: 206 Result Comment: Hemo lysis present, Results??could be affected.?? Performed By: #### L 500.4100, L100.4500, L506.1001, L500.2500, L501.9520, L100.0500, L501.5200, L503.0106 ####[facility] [address] [place], [address] Sodium [Moles/Vol] 132 mmol/L Low 133-145 [facility] Comment on above: Order Comment: 206 Performed By: #### L 500.4100, L100.4500, L506.1001, L500.2500, L501.9520, L100.0500, L501.5200, L503.0106 ####[facility] [address] [place], [address] Urea nitrogen [Mass/Vol] 39 mg/dL High 4-19 [facility] Comment on above: Order Comment: 206 Performed By: #### L 500.4100, L100.4500, L506.1001, L500.2500, L501.9520, L100.0500, L501.5200, L503.0106 ####[facility] [address] [place], [address] BUN Normal -[address] [place] [address] Comment on above: Result Comment: Canc elled via OM: Order cancelled - Patient discharged Performed By: #### L 500.2500, L100.0100 ####[facility] [address] [place], [address] BUN/CRE Normal 10-20 [facility] Comment on above: Result Comment: Canc elled via OM: Order cancelled - Patient discharged Performed By: #### L 500.2500, L100.0100 ####[facility] [address] [place], [address] Calcium Normal 7.6-11.0 [facility] Comment on above: Result Comment: Canc elled via OM: Order cancelled - Patient discharged Performed By: #### L 500.2500, L100.0100 ####[facility] [address] [place], [address] CL Normal 98-108 [facility] Comment on above: Result Comment: Canc elled via OM: Order cancelled - Patient discharged Performed By: #### L 500.2500, L100.0100 ####[facility] [address] [place], [address] CO2 Normal 21.0-32.0 [facility] Comment on above: Result Comment: Canc elled via OM: Order cancelled - Patient discharged Performed By: #### L 500.2500, L100.0100 ####[facility] [address] [place], [address] CREAT,SERUM Normal 0.70-1.20 [facility] Comment on above: Result Comment: Canc elled via OM: Order cancelled - Patient discharged Performed By: #### L 500.2500, L100.0100 ####[facility] [address] [place], [address] eGFR Normal >60 [facility] Comment on above: Result Comment: Canc elled via OM: Order cancelled - Patient discharged Performed By: #### L 500.2500, L100.0100 ####[facility] [address] [place], [address] GAP Normal 5-15 [facility] Comment on above: Result Comment: Canc elled via OM: Order cancelled - Patient discharged Performed By: #### L 500.2500, L100.0100 ####[facility] [address] [place], [address] GLU Normal 70-99 [facility] Comment on above: Result Comment: Canc elled via OM: Order cancelled - Patient discharged Performed By: #### L 500.2500, L100.0100 ####[facility] [address] [place], [address] Potassium Normal 3.3-5.1 [facility] Comment on above: Result Comment: Canc elled via OM: Order cancelled - Patient discharged Performed By: #### L 500.2500, L100.0100 ####[facility] [address] [place], [address] Basic Metabolic Profile (BMP) Normal 133-145 [facility] Comment on above: Result Comment: Canc elled via OM: Order cancelled - Patient discharged Performed By: #### L 500.2500, L100.0100 ####[facility] [address] [place], [address] Basophil percentageOrdered B y: Ciaran Rodrigez on 08-14-2024 Basophil percentage 0.6 % 0-1 [facility]side Glucoseon 08-14-2024 FINGER[place]ICK GLU 137 mg/dL High 74-106 [facility] Comment on above: Result Comment: LUIZA DIAZ OF PATIENT CARE PER NURSING PROTOCOL Performed By: #### L 501.080 ####[facility] [address] [place], [address] Bilirubin Test strip Ql (U)O rdered By: Ciaran Rodrigez on 08-14-2024 Bilirubin Ql (U) Negative Negative [facility] Bilirubin, totalOrdered By: Ciaran Rodrigez on 03-19-2025 Bilirubin [Mass/Vol] 0.18 mg/dL 0.00-1.30 [facility] Bilirubin, total 0.18 mg/dL 0.00-1.30 [facility] Blood [facility] [place] [facility] LINDA TEST Positive Normal [facility] Comment on above: Performed By: #### L 9000.0800 ####[facility] [address] [place], [address] Base excess Calc (Bld) [Moles/Vol] -3 mmol/L Low -2 to +2 [facility] Comment on above: Performed By: #### L 9000.0800 ####[facility] [address] [place], [address] Blood Gas Type ART Normal [facility] Comment on above: Performed By: #### L 9000.0800 ####[facility] [address] [place], [address] CO2 [Moles/Vol] 23 mmol/L Normal [facility] Comment on above: Performed By: #### L 9000.0800 ####[facility] [address] [place], [address] FI02 44.0 [facility] Comment on above: Performed By: #### L 9000.0800 ####[facility] [address] [place], [address] HCO3 (Bld) [Moles/Vol] 22.0 mmol/L Normal 22-26 [facility] Comment on above: Performed By: #### L 9000.0800 ####[facility] [address] [place], [address] Mode Not entered [facility] Comment on above: Performed By: #### L 9000.0800 ####[facility] [address] [place], [address] O2 Delivery Dev Cannula Normal [facility] Comment on above: Performed By: #### L 9000.0800 ####[facility] [address] [place], [address] pCO2 39.1 mmHg Normal 35-45 [facility] Comment on above: Performed By: #### L 9000.0800 ####[facility] [address] [place], [address] pH (Bld) 7.36 [pH] Normal 7.35-7.45 [facility] Comment on above: Performed By: #### L 9000.0800 ####[facility] [address] [place], [address] PO2 105 mmHG High 75-100 [facility] Comment on above: Performed By: #### L 9000.0800 ####[facility] [address] [place], [address] SITE R Radial Normal [facility] Comment on above: Performed By: #### L 9000.0800 ####[facility] [address] [place], [address] SO2 98 Normal 95-99 [facility] Comment on above: Performed By: #### L 9000.0800 ####[facility] [address] [place], [address] Blood base excess determinat ionOrdered By: Ciaran Rodrigez on 08-14-2024 Base excess Calc (BldV) [Moles/Vol] -3 mmol/L Low -2-2 [facility] Blood bicarbonate measuremen tOrdered By: Ciaran Rodrigez on 08-14-2024 HCO3 (Bld) [Moles/Vol] 22.0 mmol/L [facility] Blood bicarbonate measurement 22.0 mmol/L [facility] Blood cultureOrdered By: Adelfo Rodrigez on 08-14-2024 Bacteria identified Cx Nom (Bld) No growth in 5 days. [facility] Blood culture No growth in 5 days. [facility] Bacteria identified Cx Nom (Bld) No growth in 5 days. [facility] Blood culture No growth in 5 days. [facility] Blood manual differential co mment interpretation (narrative result)Ordered By: Millie Massey on 08-14-2024 Manual differential comment Horace (Bld) [Interp] COMMENT [facility] Blood polychromasia detectio n by light microscopyOrdered By: Ciaran Walsh on 08-14-2024 Blood polychromasia detection by light microscopy RARE [facility] CBC W/Diff, Automatedon 07-27 Anisocytosis Ql (Bld) RARE Normal [facility] Comment on above: Performed By: #### L 500.4050, L100.0100 ####[facility] [address] [place], [address] POLYCHROMASIA RARE Normal [facility] Comment on above: Performed By: #### L 500.4050, L100.0100 ####[facility] [address] [place], [address] Absolute Neut Normal 2.0-7.7 [facility] Comment on above: Result Comment: Canc elled via OM: Order cancelled - Patient discharged Performed By: #### L 500.2500, L100.0100 ####[facility] [address] [place], [address] HCT Normal 37-47 [facility] Comment on above: Result Comment: Canc elled via OM: Order cancelled - Patient discharged Performed By: #### L 500.2500, L100.0100 ####[facility] [address] [place], [address] HGB Normal 12.0-15.0 [facility] Comment on above: Result Comment: Canc elled via OM: Order cancelled - Patient discharged Performed By: #### L 500.2500, L100.0100 ####[facility] [address] [place], [address] MCH Normal 27.0-32.0 [facility] Comment on above: Result Comment: Canc elled via OM: Order cancelled - Patient discharged Performed By: #### L 500.2500, L100.0100 ####[facility] [address] [place], [address] MCHC Normal 32-36 [facility] Comment on above: Result Comment: Canc elled via OM: Order cancelled - Patient discharged Performed By: #### L 500.2500, L100.0100 ####[facility] [address] [place], [address] MCV Normal 81-99 [facility] Comment on above: Result Comment: Canc elled via OM: Order cancelled - Patient discharged Performed By: #### L 500.2500, L100.0100 ####[facility] [address] [place], [address] NEUT% Normal 47-70 [facility] Comment on above: Result Comment: Canc elled via OM: Order cancelled - Patient discharged Performed By: #### L 500.2500, L100.0100 ####[facility] [address] [place], [address] PLT Normal 150-450 [facility] Comment on above: Result Comment: Canc elled via OM: Order cancelled - Patient discharged Performed By: #### L 500.2500, L100.0100 ####[facility] [address] [place], [address] RBC Normal 4.2-5.4 [facility] Comment on above: Result Comment: Canc elled via OM: Order cancelled - Patient discharged Performed By: #### L 500.2500, L100.0100 ####[facility] [address] [place], [address] RDW CV Normal 11.6-14.6 [facility] Comment on above: Result Comment: Canc elled via OM: Order cancelled - Patient discharged Performed By: #### L 500.2500, L100.0100 ####[facility] [address] [place], [address] RDW SD Normal 35.1-43.9 [facility] Comment on above: Result Comment: Canc elled via OM: Order cancelled - Patient discharged Performed By: #### L 500.2500, L100.0100 ####[facility] [address] [place], [address] WBC Normal 4.4-11.0 [facility] Comment on above: Result Comment: Canc elled via OM: Order cancelled - Patient discharged Performed By: #### L 500.2500, L100.0100 ####[facility] [address] [place], [address] CBC-Complete Blood Cnt No Di ffon 08-14-2024 Erythrocyte distribution width (RBC) [Ratio] 21.0 % High 11.6-14.6 [facility] Comment on above: Order Comment: 206 Performed By: #### L 500.4100, L100.4500, L506.1001, L500.2500, L501.9520, L100.0500, L501.5200, L503.0106 ####[facility] [address] [place], [address] Hematocrit (Bld) [Volume fraction] 30.9 % Low 37-47 [facility] Comment on above: Order Comment: 206 Performed By: #### L 500.4100, L100.4500, L506.1001, L500.2500, L501.9520, L100.0500, L501.5200, L503.0106 ####[facility] [address] [place], [address] Hemoglobin (Bld) [Mass/Vol] 9.2 g/dL Low 12.0-15.0 [facility] Comment on above: Order Comment: 206 Performed By: #### L 500.4100, L100.4500, L506.1001, L500.2500, L501.9520, L100.0500, L501.5200, L503.0106 ####[facility] [address] [place], [address] MCH (RBC) [Entitic mass] 27.6 pg Normal 27.0-32.0 [facility] Comment on above: Order Comment: 206 Performed By: #### L 500.4100, L100.4500, L506.1001, L500.2500, L501.9520, L100.0500, L501.5200, L503.0106 ####[facility] [address] [place], [place], [phone] MCHC (RBC) [Mass/Vol] 29.8 g/dL Low 32-36 [facility] Comment on above: Order Comment: 206 Performed By: #### L 500.4100, L100.4500, L506.1001, L500.2500, L501.9520, L100.0500, L501.5200, L503.0106 ####[facility] [address] [place], [place], [phone]) MCV (RBC) [Entitic vol] 92.8 fL Normal 81-99 [facility] Comment on above: Order Comment: 206 Performed By: #### L 500.4100, L100.4500, L506.1001, L500.2500, L501.9520, L100.0500, L501.5200, L503.0106 ####[facility] [address] [place], [place], [phone]) Platelet mean volume (Bld) [Entitic vol] 10.8 fL Normal 6.2-12.0 [facility] Comment on above: Order Comment: 206 Performed By: #### L 500.4100, L100.4500, L506.1001, L500.2500, L501.9520, L100.0500, L501.5200, L503.0106 ####[facility] [address] [place], [address] Platelets (Bld) [#/Vol] 137 10*3/uL Low 150-450 [facility] Comment on above: Order Comment: 206 Performed By: #### L 500.4100, L100.4500, L506.1001, L500.2500, L501.9520, L100.0500, L501.5200, L503.0106 ####[facility] [address] [place], [address] RBC (Bld) [#/Vol] 3.33 10*6/uL Low 4.2-5.4 [facility] Comment on above: Order Comment: 206 Performed By: #### L 500.4100, L100.4500, L506.1001, L500.2500, L501.9520, L100.0500, L501.5200, L503.0106 ####[facility] [address] [place], [address] RDW SD 69.6 fl High 35.1-43.9 [facility] Comment on above: Order Comment: 206 Performed By: #### L 500.4100, L100.4500, L506.1001, L500.2500, L501.9520, L100.0500, L501.5200, L503.0106 ####[facility] [address] [place], [address] WBC (Bld) [#/Vol] 4.1 10*3/uL Low 4.4-11.0 [facility] Comment on above: Order Comment: 206 Performed By: #### L 500.4100, L100.4500, L506.1001, L500.2500, L501.9520, L100.0500, L501.5200, L503.0106 ####[facility] [address] [place], [address] Calcium [Mass/Vol]Ordered By : Ciaran Rodrigez on 08-14-2024 Serum or plasma calcium measurement (mass/volume) 7.8 mg/dL 7.6-11.0 [facility] Calcium [Mass/Vol]Ordered By : Millie Massey on 08-14-2024 Serum or plasma calcium measurement (mass/volume) 7.8 mg/dL 7.6-11.0 [facility] Calcium oxalate crystals LM Ql (Urine sed)Ordered By: Ciaran Rodrigez on 08-14-2024 Calcium oxalate crystals detection in urine sediment by light microscopy 1+ /hpf [facility] Calcium oxalate crystals det ection in urine sediment by light microscopyOrdered By: Ciaran Rodrigez on 08-14-2024 Calcium oxalate crystals LM Ql (Urine sed) 1+ /hpf [facility] Calculated very low density lipoprotein (VLDL) cholesterol measurementOrdered By: Millie Massey on 08-14-2024 Calculated very low density lipoprotein (VLDL) cholesterol measurement 9 mg/dL -40 [facility] Calculated very low density lipoprotein (VLDL) cholesterol measurement 9 mg/dL -40 [facility] Carbon dioxide, total [Moles /volume] in Central venous bloodOrdered By: Ciaran Rodrigez on 08-14-2024 Carbon dioxide, total [Moles/volume] in Central venous blood 19.2 mmol/L Low 21.0-32.0 [facility] Carbon dioxide, total [Moles /volume] in Central venous bloodOrdered By: Millie Massey on 08-14-2024 CO2 [Moles/Vol] 19.9 mmol/L Low 21.0-32.0 [facility] Carbon dioxide, total [Moles/volume] in Central venous blood 19.9 mmol/L Low 21.0-32.0 [facility] Chest 1 View (Portable)on Chest 1 View (Portable) Normal [facility] Chloride assayOrdered By: Dakota Rodrigez on 08-14-2024 Chloride assay 104 mmol/L 98-108 [facility] Chloride assayOrdered By: Carter Massey on 08-14-2024 Chloride [Moles/Vol] 105 mmol/L 98-108 [facility] Chloride assay 105 mmol/L 98-108 [facility] Cholesterol [Mass/Vol]Ordere d By: Millie Massey on 08-14-2024 Serum or plasma cholesterol measurement (mass/volume) 72 mg/dL <201 [facility] Cholesterol in HDL [Mass/Vol ]Ordered By: Millie Massey on 08-14-2024 Serum or plasma cholesterol in HDL measurement (mass/volume) 27 mg/dL Low >40 [facility] Clarity (U)Ordered By: Ciaran Rodrigez on 08-14-2024 Urine clarity Sl. Cloudy Clear [facility] Cobalamin (Vitamin B12) [Mas s/Vol]Ordered By: Millie Massey on 08-14-2024 Vitamin B12 ser/plas 599 pg/mL 180-914 [facility] Color (U)Ordered By: Ciaran Singh on 08-14-2024 Urine color determination Yellow Yellow [facility] Comprehensive Metabolic Prof ilon 08-14-2024 Albumin [Mass/Vol] 2.0 g/dL Low 3.4-4.8 [facility] Comment on above: Performed By: #### L 500.4050, L100.0100 ####[facility] [address] [place], [place], [id number] Albumin/Globulin [Mass ratio] 0.6 {ratio} Low 0.9-2.4 [facility] Comment on above: Performed By: #### L 500.4050, L100.0100 ####[facility] [address] [place], [address] ALK PHOS 71 U/L Normal 35-104 [facility] Comment on above: Performed By: #### L 500.4050, L100.0100 ####[facility] [address] [place], [address] ALT [Catalytic activity/Vol] 9 U/L Normal <=34 [facility] Comment on above: Performed By: #### L 500.4050, L100.0100 ####[facility] [address] [place], [address] AST [Catalytic activity/Vol] 29 U/L Normal <=31 [facility] Comment on above: Result Comment: Hemo lysis present, Results??could be affected.?? Performed By: #### L 500.4050, L100.0100 ####[facility] [address] [place], [address] Bilirubin [Mass/Vol] 0.18 mg/dL Normal 0.00-1.30 [facility] Comment on above: Performed By: #### L 500.4050, L100.0100 ####[facility] [address] [place], [address] BUN/CRE 29.1 RATIO High 10-20 [facility] Comment on above: Performed By: #### L 500.4050, L100.0100 ####[facility] [address] [place], [address] Calcium [Mass/Vol] 7.8 mg/dL Normal 7.6-11.0 [facility] Comment on above: Performed By: #### L 500.4050, L100.0100 ####[facility] [address] [place], [address] Chloride [Moles/Vol] 104 mmol/L Normal 98-108 [facility] Comment on above: Performed By: #### L 500.4050, L100.0100 ####[facility] [address] [place], [address] CO2 [Moles/Vol] 19.2 mmol/L Low 21.0-32.0 [facility] Comment on above: Performed By: #### L 500.4050, L100.0100 ####[facility] [address] [place], [address] Creatinine [Mass/Vol] 1.34 mg/dL High 0.70-1.20 [facility] Comment on above: Performed By: #### L 500.4050, L100.0100 ####[facility] [address] [place], [address] ECRCL 38.48 ml/min Low 50-250 [facility] Comment on above: Performed By: #### L 500.4050, L100.0100 ####[facility] [address] [place], [address] GAP 9 Normal 5-15 [facility] Comment on above: Performed By: #### L 500.4050, L100.0100 ####[facility] [address] [place], [address] GFR/1.73 sq M.predicted among non-blacks MDRD (S/P/Bld) [Vol rate/Area] 45 mL/min/{1.73_m2} Low >60 [facility] Comment on above: Result Comment: mL/m in/1.73m2 CKD-EPI Creatinine Equation (2020) Performed By: #### L 500.4050, L100.0100 ####[facility] [address] [place], [address] Globulin (S) [Mass/Vol] 3.4 g/dL Normal 2.2-4.2 [facility] Comment on above: Performed By: #### L 500.4050, L100.0100 ####[facility] [address] [place], [address] Glucose [Mass/Vol] 85 mg/dL Normal 70-99 [facility] Comment on above: Performed By: #### L 500.4050, L100.0100 ####[facility] [address], [address] Potassium [Moles/Vol] 5.4 mmol/L High 3.3-5.1 [facility] Comment on above: Result Comment: Hemo lysis present, Results??could be affected.?? Performed By: #### L 500.4050, L100.0100 ####[facility] [address], [address] Sodium [Moles/Vol] 131 mmol/L Low 133-145 [facility] Comment on above: Performed By: #### L 500.4050, L100.0100 ####[facility] [address] [place], [address] T PROT 5.5 g/dL Low 5.9-8.4 [facility] Comment on above: Performed By: #### L 500.4050, L100.0100 ####[facility] [address] [place], [address] Urea nitrogen [Mass/Vol] 39 mg/dL High -19 [facility] Comment on above: Performed By: #### L 500.4050, L100.0100 ####[facility] [address] [place], [address] Creatinine [Mass/Vol]Ordered By: Ciaran Rodrigez on 08-14-2024 Serum creatinine measurement (mass/volume) 1.34 mg/dL High 0.70-1.20 [facility] Creatinine [Mass/Vol]Ordered By: Millie Massey on 08-14-2024 Serum creatinine measurement (mass/volume) 1.34 mg/dL High 0.70-1.20 [facility] Determination of fraction of inspired oxygenOrdered By: Ciaran Rodrigez on 08-14-2024 Determination of fraction of inspired oxygen 44.0 [facility] Dialysis Vein Map PRE-OP LEXIE ATon 03-19-2025 Dialysis Vein Map PRE-OP BILAT Normal [facility] Differential Commenton 08-14 SMEAR COMMENT COMMENT Normal [facility] Comment on above: Order Comment: 206 Result Comment: 1+ A NISO. Performed By: #### L 500.4100, L100.4500, L506.1001, L500.2500, L501.9520, L100.0500, L501.5200, L503.0106 ####[facility] [address] [place], [address] Echo Completeon 08-14-2024 Echo Complete Normal [facility] Emergency Department Summary on 08-14-2024 Emergency Department Summary Normal [facility] Eosinophil percentageOrdered By: Ciaran Rodrigez on 08-14-2024 Eosinophil percentage 1.9 % 0-5 [facility] Erythrocyte distribution wid th (RBC) [Entitic vol]Ordered By: Ciaran Walsh on 08-14-2024 Erythrocyte distribution width standard deviation 70.0 fl High 35.1-43.9 [facility] Erythrocyte distribution wid th (RBC) [Ratio]Ordered By: Ciaran Rodrigez on 08-14-2024 Erythrocyte distribution width ratio 21.0 % High 11.6-14.6 [facility] Erythrocyte distribution wid th (RBC) [Ratio]Ordered By: Millie Massey on 08-14-2024 Erythrocyte distribution width ratio 21.0 % High 11.6-14.6 [facility] Erythrocyte distribution wid th ratioOrdered By: Millie Massey on 08-14-2024 Erythrocyte distribution width (RBC) [Ratio] 21.0 % High 11.6-14.6 [facility] Erythrocyte distribution wid th standard deviationOrdered By: Millie Massey on 08-14-2024 Erythrocyte distribution width (RBC) [Ratio] 69.6 fl High 35.1-43.9 [facility] Erythrocyte distribution width standard deviation 69.6 fl High 35.1-43.9 [facility] Estimation of creatinine austen aranceOrdered By: Ciaran Rodrigez on 08-14-2024 Estimation of creatinine clearance 38.48 ml/min Low 50-250 [facility] GFR/1.73 sq M.predicted víctor g non-blacks MDRD (S/P/Bld) [Vol rate/Area]Ordered By: Ciaran Rodrigez on 08-14-2024 Glomerular filtration rate (GFR) estimation/1.73 sq m using serum, plasma, or whole b 45 Low >60 [facility] GFR/1.73 sq M.predicted víctor g non-blacks MDRD (S/P/Bld) [Vol rate/Area]Ordered By: Millei Massey on 08-14-2024 Glomerular filtration rate (GFR) estimation/1.73 sq m using serum, plasma, or whole b 45 Low >60 [facility] Glomerular filtration rate ( GFR) estimation/1.73 sq m using serum, plasma, or whole bOrdered By: Millie Massey on 08-14-2024 GFR/1.73 sq M.predicted among non-blacks MDRD (S/P/Bld) [Vol rate/Area] 45 mL/min/{1.73_m2} Low >60 [facility] Glucoseon 08-14-2024 Glucose [Mass/Vol] 79 mg/dL Normal - [facility] Comment on above: Performed By: #### L 501.0100 ####[facility] [address] [place], [address] Glucose [Mass/Vol]Ordered By : Ciaran Rodrigez on 08-14-2024 Serum glucose measurement (mass/volume) 85 mg/dL - [facility] Glucose [Mass/Vol]Ordered By : Millie Massey on 08-14-2024 Serum glucose measurement (mass/volume) 84 mg/dL [facility] H AND P Exam - Hospitaliston 08-14-2024 H&P Exam - Hospitalist Normal [facility] Hematocrit Auto (Bld) [Volum e fraction]Ordered By: Ciaran Rodrigez on 08-14-2024 Automated blood hematocrit (percentage) 29.0 % Low 37-47 [facility] Hematocrit Auto (Bld) [Volum e fraction]Ordered By: Millie Massey on 08-14-2024 Hematocrit (Bld) [Volume fraction] 30.9 % Low 37-47 [facility] Automated blood hematocrit (percentage) 30.9 % Low 37-47 [facility] Hemoglobin measurementOrdere d By: Ciaran Rodrigez on 08-14-2024 Hemoglobin measurement 8.7 g/dL Low 12.0-15.0 [facility] Hemoglobin measurementOrdere d By: Millie Massey on 08-14-2024 Hemoglobin (Bld) [Mass/Vol] 9.2 g/dL Low 12.0-15.0 [facility] Hemoglobin measurement 9.2 g/dL Low 12.0-15.0 [facility] Immature granulocytes/100 WB C Auto (Bld)Ordered By: Ciaran Rodrigez on 08-14-2024 Automated immature granulocyte percentage 3.300 % High 0.0-0.9 [facility] Influenza virus A and B and SARS-CoV-2 (COVID-19) and Respiratory syncytial virus RNAOrdered By: Ciaran Rodrigez on 08-14-2024 SARS-CoV-2 (COVID-19) RNA MOISES+probe Ql (Unsp spec) [facility] International normalized rat io (INR) calculationOrdered By: Ciaran Rain on 08-14-2024 International normalized ratio (INR) calculation 1.1 [facility] Ketones Test strip Ql (U)Ord ered By: Ciaran Rodrigez on 08-14-2024 Ketones Ql (U) Negative Negative [facility] L499.0042on 08-14-2024 Trop T High Sen 221 ng/L Invalid Interpretation Code <=14 [facility] Comment on above: Result Comment: Crit ical Result(s) Called at 1058: TO HORR by:KCLAPPER??Results read back by same. Performed By: #### L 499.0042 ####[facility] [address] [place], [address] L501.4021on 08-14-2024 Trop T High Sen 224 ng/L Invalid Interpretation Code <=14 [facility] Comment on above: Result Comment: Crit ical Result(s) Called at 0906: TO CDANTEL by:KCLAPPER??Results read back by same. Performed By: #### M 200.1000, L503.6005, L501.4021 ####[facility] [address] [place], [address] L503.0106on 08-14-2024 Cobalamin (Vitamin B12) [Mass/Vol] 599 pg/mL Normal 180-914 [facility] Comment on above: Order Comment: 206 Performed By: #### L 500.4100, L100.4500, L506.1001, L500.2500, L501.9520, L100.0500, L501.5200, L503.0106 ####[facility] [address] [place], [address] L506.1001on 08-14-2024 Vitamin D 25-OH 26.7 ng/mL Low 30-100 [facility] Comment on above: Order Comment: 206 Result Comment: Kelly min D StatusDeficiency: <20 ng/mL (50nmol/L)Insufficiency: 20-30 ng/mL (50-75 nmol/L)Sufficiency: 30-100 ng/mL (75-250 nmol/L)Toxicity: >100 ng/mL (>250 nmol/L) Performed By: #### L 500.4100, L100.4500, L506.1001, L500.2500, L501.9520, L100.0500, L501.5200, L503.0106 ####[facility] [address] [place], [address] LDHon 08-14-2024 LDH 239 U/L Normal 84-246 [facility] Comment on above: Order Comment: 1 Result Comment: Hemo lysis present, Results??could be affected.?? Performed By: #### L 504.2610, L001.0705 ####[facility] [address] [place], [place], [address] LDL calc ser/plasOrdered By: Millie Massey on 08-14-2024 Cholesterol in LDL [Mass/Vol] 36 mg/dL [facility] LDL calc ser/plas 36 mg/dL [facility] Lactate dehydrogenase (LDH) measurementOrdered By: Nikolas Magaña on 08-14-2024 Lactate dehydrogenase (LDH) measurement 239 U/L 84-246 [facility] Lactic Acidon 08-14-2024 Lactate [Moles/Vol] 3.1 mmol/L Invalid Interpretation Code 0.0-2.0 [facility] Comment on above: Order Comment: Y Result Comment: Crit ical Result(s) Called at 905: TO CDANTEL by:KCLAPPER??Results read back by same. Performed By: #### M 200.1000, L503.6005, L501.4021 ####[facility] [address] [facility] [address] [place], [place], [id number] Lactic acid measurementOrder ed By: Ciaran Rodrigez on 08-14-2024 Lactic acid measurement 3.1 mmol/L High 0.0-2.0 [facility] Leukocyte esterase Test stri p Ql (U)Ordered By: Ciaran Rodrigez on 08-14-2024 Urine leukocyte esterase detection by dipstick 500 /ul High Negative [facility] Lipid Profileon 08-14-2024 CHOL:HDL 2.71 Normal [facility] Comment on above: Order Comment: 206 Performed By: #### L 500.4100, L100.4500, L506.1001, L500.2500, L501.9520, L100.0500, L501.5200, L503.0106 ####[facility] [address] [place], [place], [id number] Cholesterol [Mass/Vol] 72 mg/dL Normal <=200 [facility] Comment on above: Order Comment: 206 Result Comment: Chol esterol level, Desirable <200 mg/dLBorderline high cholesterol 200-239 mg/dLHigh cholesterol >=240 mg/dLRecommendations of the NCEP Adult Treatment Panel for thefollowing risk-cutoff thresholds for the [place] Americanpopulation. Performed By: #### L 500.4100, L100.4500, L506.1001, L500.2500, L501.9520, L100.0500, L501.5200, L503.0106 ####[facility] [address] [place], [address] Cholesterol in HDL [Mass/Vol] 27 mg/dL Low [facility] Comment on above: Order Comment: 206 Result Comment: Lucila onal Cholesterol Education Program (NCEP) guidelines:<40 mg/dL: Low HDL-cholesterol (major risk factor for CHD)>= 60 mg/dL: High HDL-cholesterol (negative risk factor forCHD)HDL-cholesterol is affected by a number of factors, e.g.smoking, exercise, hormones, sex and age. Performed By: #### L 500.4100, L100.4500, L506.1001, L500.2500, L501.9520, L100.0500, L501.5200, L503.0106 ####[facility] [address] [place], [address] Cholesterol in LDL [Mass/Vol] 36 mg/dL Normal [facility] Comment on above: Order Comment: 206 Result Comment: Bord zedzbm=565-807 mg/dL Higher Okfm=123 mg/dL or greater Performed By: #### L 500.4100, L100.4500, L506.1001, L500.2500, L501.9520, L100.0500, L501.5200, L503.0106 ####[facility] [address] [place], [address] Cholesterol in VLDL [Mass/Vol] 9 mg/dL Normal 5-40 [facility] Comment on above: Order Comment: 206 Performed By: #### L 500.4100, L100.4500, L506.1001, L500.2500, L501.9520, L100.0500, L501.5200, L503.0106 ####[facility] [address] [place], [place], [id number] Triglyceride [Mass/Vol] 46 mg/dL Normal [facility] Comment on above: Order Comment: 206 Result Comment: The drugs N-Acetylcysteine and Metamizole may falselydepress this assay.Normal range: <150 mg/dLBorderline High: 150-199 mg/dLHigh: 200-499 mg/dLVery High: >500 mg/dL Performed By: #### L 500.4100, L100.4500, L506.1001, L500.2500, L501.9520, L100.0500, L501.5200, L503.0106 ####[facility] [address] [place], [address] Lymphocytes Auto (Unsp spec) [#/Vol]Ordered By: Ciaran Rodrigez on 08-14-2024 Absolute lymphocyte count 0.77 X10^3/uL Low 0.83-4.51 [facility] Lymphocytes/100 WBC Auto (Un sp spec)Ordered By: Ciaran Rodrigez on 08-14-2024 Automated lymphocyte count as percentage of total leukocytes 8.6 % Low 19-41 [facility] M100.678on 08-14-2024 M100.678 Pending SARS-CoV-2 (COVID 19) Negative INFLUENZA A Negative INFLUENZA B Negative RSV PCR Negative Normal [facility] Comment on above: Performed By: #### M 100.678 ####[facility] [address] [place], [place], [id number] MCV (RBC) [Entitic vol]Order ed By: Ciaran Rodrigez on 08-14-2024 MCV (mean corpuscular volume) determination 93.9 fL -99 [facility] MCV (RBC) [Entitic vol]Order ed By: Millie Massey on 08-14-2024 MCV (mean corpuscular volume) determination 92.8 fL 81-99 [facility] MCV (mean corpuscular volume ) determinationOrdered By: Millie Massey on 08-14-2024 MCV (RBC) [Entitic vol] 92.8 fL 81-99 [facility] Magnesiumon 08-14-2024 Magnesium [Mass/Vol] 1.4 mg/dL Low 1.5-2.2 [facility] Comment on above: Performed By: #### L 501.2300, L501.5200 ####[facility] [address] [facility] [place] [place], [address] Magnesium [Mass/Vol] 1.5 mg/dL Normal 1.5-2.2 [facility] Comment on above: Order Comment: 206 Performed By: #### L 500.4100, L100.4500, L506.1001, L500.2500, L501.9520, L100.0500, L501.5200, L503.0106 ####[facility] [address] [facility] [place], [address] Magnesium (Unsp spec) [Mass/ Vol]Ordered By: Nikolas Magaña on 08-14-2024 Magnesium measurement (mass/volume) 1.4 mg/dL Low 1.5-2.2 [facility] Magnesium (Unsp spec) [Mass/ Vol]Ordered By: Millie Massey on 08-14-2024 Magnesium measurement (mass/volume) 1.5 mg/dL 1.5-2.2 [facility] Magnesium measurement (mass/ volume)Ordered By: Nikolas Magaña on 08-14-2024 Magnesium (Unsp spec) [Mass/Vol] 1.4 mg/dL Low 1.5-2.2 [facility] Magnesium measurement (mass/ volume)Ordered By: Millie Massey on 08-14-2024 Magnesium (Unsp spec) [Mass/Vol] 1.5 mg/dL 1.5-2.2 [facility] Manual differential comment Horace (Bld) [Interp]Ordered By: Millie Massey on 08-14-2024 Blood manual differential comment interpretation (narrative result) COMMENT [facility] Mean corpuscular hemoglobin (MCH) determinationOrdered By: Ciaran Rodrigez on 08-14-2024 Mean corpuscular hemoglobin (MCH) determination 28.2 pg 27.0-32.0 [facility] Mean corpuscular hemoglobin (MCH) determinationOrdered By: Millie Massey on 08-14-2024 MCH (RBC) [Entitic mass] 27.6 pg 27.0-32.0 [facility] Mean corpuscular hemoglobin (MCH) determination 27.6 pg 27.0-32.0 [facility] Mean corpuscular hemoglobin concentration (MCHC) determinationOrdered By: Ciaran Rodrigez on 08-14-2024 Mean corpuscular hemoglobin concentration (MCHC) determination 30.0 g/dL [facility] 32-36 [facility] Mean corpuscular hemoglobin concentration (MCHC) determinationOrdered By: Millie Massey on 08-14-2024 Mean corpuscular hemoglobin concentration (MCHC) determination 29.8 g/dL [facility] [address] Mean platelet volume determi nationOrdered By: Ciaran Rodrigez on 08-14-2024 Mean platelet volume determination 10.2 fl 6.2-12.0 [facility] Mean platelet volume determi nationOrdered By: Millie Massey on 08-14-2024 Mean platelet volume determination 10.8 fl 6.2-12.0 [facility] Measurement, pHOrdered By: Vika Rodrigez on 08-14-2024 pH (Unsp spec) 7.36 [pH] 7.35-7.45 [facility] Microscopic analysis of urin e for red blood cells (RBC)Ordered By: Ciaran Rodrigez on 08-14-2024 Microscopic analysis of urine for red blood cells (RBC) 0-5 SEEN /hpf 5-10 [facility] Monocyte percentageOrdered B y: Ciaran Rodrigez on 08-14-2024 Monocyte percentage 6.1 % 0-10 [facility] Mucus LM Ql (Urine sed)Order ed By: Ciaran Rodrigez on 08-14-2024 Mucus Ql (Urine sed) 0 SEEN /hpf [facility] Neutrophil percentageOrdered By: Ciaran Rodrigez on 08-14-2024 Neutrophil percentage 79.5 % High 47-70 [facility] Nitrite Test strip Ql (U)Ord ered By: Ciaran Rodrigez on 08-14-2024 Nitrite Ql (U) Negative Negative [facility] No Panel InformationOrdered By: Ciaran Rodrigez on 08-14-2024 ART [facility] R Radial [facility] Not entered [facility] Cannula [facility] 224 ng/L High <14 [facility] 29 U/L <32 [facility] Nucleated red blood cell per centageOrdered By: Ciaran Rodrigez on 08-14-2024 Nucleated red blood cell percentage 0 % 0-5 [facility] Oxygen saturation measuremen tOrdered By: Ciaran Rodrigez on 08-14-2024 Oxygen saturation measurement 98 % 95-99 [facility] Partial Thromboplast Timeon 08-14-2024 aPTT Coag (Bld) [Time] 33.6 s Normal 24.1-36.2 [facility] Comment on above: Performed By: #### L 300.3900, L300.4310 ####[facility] [address] [place], [place], [id number] Partial pressure of carbon d ioxide measurementOrdered By: Ciaran Rodrigez on 08-14-2024 Partial pressure of carbon dioxide measurement 39.1 mmHg 35-45 [facility] Partial pressure of oxygen m easurementOrdered By: Ciaran Rodrigez on 08-14-2024 Partial pressure of oxygen measurement 105 mmHG High 75-100 [facility] Phosphoruson 08-14-2024 Phosphate [Mass/Vol] 3.0 mg/dL Normal 2.7-4.5 [facility] Comment on above: Performed By: #### L 501.2300, L501.5200 ####[facility] [address], [place], [id number] Platelet countOrdered By: Dakota Rodrigez on 08-14-2024 Platelet count 147 K/mm3 Low 150-450 [facility] Platelet countOrdered By: Carter Massey on 08-14-2024 Platelets (Bld) [#/Vol] 137 10*3/uL Low 150-450 [facility] Platelet count 137 K/mm3 Low 150-450 [facility] Potassium (Unsp spec) [Mass/ Vol]Ordered By: Ciaran Rodrigez on 08-14-2024 Potassium measurement (mass/volume) 5.4 mmol/L High 3.3-5.1 [facility] Potassium (Unsp spec) [Mass/ Vol]Ordered By: Millie Massey on 08-14-2024 Potassium measurement (mass/volume) 5.3 mmol/L High 3.3-5.1 [facility] Potassium measurement (mass/ volume)Ordered By: Millie Massey on 08-14-2024 Potassium (Unsp spec) [Mass/Vol] 5.3 mmol/L High 3.3-5.1 [facility] Protein Test strip Ql (U)Ord ered By: Ciaran Rodrigez on 08-14-2024 Protein Ql (U) 30 mg/dl High Negative [facility] Urine protein assay by test strip, semi-quantitative 30 mg/dl High Negative [facility] Protein, Totalon 08-14-2024 T PROT 5.4 g/dL Low 5.9-8.4 [facility] Comment on above: Performed By: #### L 504.2610, L001.0705 ####[facility] [address] [place], [place], [id number] Prothrombin Time w/INRon INR Coag (PPP) [Relative time] 1.1 {INR} Normal [facility] Comment on above: Performed By: #### L 300.3900, L300.4310 ####[facility] [address] [place], [place], [id number] PT Coag (PPP) [Time] 14.6 s Normal 11.7-14.9 [facility] Comment on above: Performed By: #### L 300.3900, L300.4310 ####[facility] [address] [place], [place], [address] Prothrombin timeOrdered By: Ciaran Rodrigez on 08-14-2024 PT Coag (PPP) [Time] 14.6 s 11.7-14.9 [facility] Prothrombin time 14.6 SECONDS 11.7-14.9 [facility] RBC Auto (Bld) [#/Vol]Ordere d By: Ciaran Rodrigez on 08-14-2024 Automated blood erythrocyte count 3.09 M/mm3 Low 4.2-5.4 [facility] RBC Auto (Bld) [#/Vol]Ordere d By: Millie Massey on 08-14-2024 RBC (Bld) [#/Vol] 3.33 10*6/uL Low 4.2-5.4 [facility] Automated blood erythrocyte count 3.33 M/mm3 Low 4.2-5.4 [facility] Screening total cholesterol/ high density lipoprotein (HDL) cholesterol ratioOrdered By: Millie Massey on 08-14-2024 Screening total cholesterol/high density lipoprotein (HDL) cholesterol ratio 2.71 [facility] Serum creatinine measurement (mass/volume)Ordered By: Millie Massey on 08-14-2024 Creatinine [Mass/Vol] 1.34 mg/dL High 0.70-1.20 [facility] Serum globulin measurementOr dered By: Ciaran Rodrigez on 08-14-2024 Globulin (S) [Mass/Vol] 3.4 g/dL 2.2-4.2 [facility] Serum globulin measurement 3.4 g/dL 2.2-4.2 [facility] Serum glucose measurement (m ass/volume)Ordered By: Millie Massey on 08-14-2024 Glucose [Mass/Vol] 84 mg/dL 70-99 [facility] Serum or plasma alanine camargo otransferase (ALT) measurementOrdered By: Ciaran Rodrigez on 08-14-2024 ALT [Catalytic activity/Vol] 9 U/L <35 [facility] Serum or plasma albumin megan urement (mass/volume)Ordered By: Ciaran Walsh on 08-14-2024 Albumin [Mass/Vol] 2.0 g/dL Low 3.4-4.8 [facility] Serum or plasma albumin/glob ulin mass ratioOrdered By: Ciaran Rodrigez on 08-14-2024 Albumin/Globulin [Mass ratio] 0.6 {ratio} Low 0.9-2.4 [facility] Serum or plasma alkaline susan sphatase measurementOrdered By: Ciaran Rodrigez on 08-14-2024 ALP [Catalytic activity/Vol] 71 U/L 35-104 [facility] Serum or plasma calcium megan urement (mass/volume)Ordered By: Millie Massey on 08-14-2024 Calcium [Mass/Vol] 7.8 mg/dL 7.6-11.0 [facility] Serum or plasma cholesterol in HDL measurement (mass/volume)Ordered By: Millie Massey on 08-14-2024 Cholesterol in HDL [Mass/Vol] 27 mg/dL Low >40 [facility] Serum or plasma cholesterol measurement (mass/volume)Ordered By: Millie Massey on 08-14-2024 Cholesterol [Mass/Vol] 72 mg/dL <201 [facility] Serum or plasma urea nitroge n measurement (mass/volume)Ordered By: Millie Massey on 08-14-2024 Urea nitrogen [Mass/Vol] 39 mg/dL High 4-19 [facility] Serum phosphorus measurement Ordered By: Nikolas Magaña on 08-14-2024 Serum phosphorus measurement 3.0 mg/dL 2.7-4.5 [facility] Sodium levelOrdered By: Ward Rodrigez on 08-14-2024 Sodium level 131 mmol/L Low 133-145 [facility] Sodium levelOrdered By: Silvana Massey on 08-14-2024 Sodium [Moles/Vol] 132 mmol/L Low 133-145 [facility] Sodium level 132 mmol/L Low 133-145 [facility] Specific gravity (U) [Rel de nsity]Ordered By: Ciaran Rodrigez on 08-14-2024 Urine specific gravity measurement 1.010 1.002-1.03 0 [facility] Squamous epithelial cells de tection in urine sediment by light microscopyOrdered By: Ciaran Rodrigez on 08-14-2024 Epithelial cells.squamous LM Ql (Urine sed) 0-5 SEEN /hpf 5-10 [facility] TSH DL <= 0.005 mIU/L QnOrde red By: Millie Massey on 08-14-2024 TSH Qn 9.430 uIU/mL High 0.300-4.20 0 [facility] Serum or plasma thyroid stimulating hormone (TSH) measurement by high sensitivity met 9.430 uIU/mL High 0.300-4.20 0 [facility] Thyroid Stim Hormone (TSH)on 08-14-2024 TSH 9.430 uIU/mL High 0.300-4.20 0 [facility] Comment on above: Order Comment: 206 Performed By: #### L 500.4100, L100.4500, L506.1001, L500.2500, L501.9520, L100.0500, L501.5200, L503.0106 ####[facility] [address] [place], [place], [address] Total carbon dioxide measure mentOrdered By: Ciaran Rodrigez on 08-14-2024 CO2 [Moles/Vol] 23 mmol/L [facility] Total carbon dioxide measurement 23 mmol/L [facility] Total proteinOrdered By: Myke Magaña on 08-14-2024 Protein [Mass/Vol] 5.4 g/dL Low 5.9-8.4 [facility] Total protein 5.4 g/dL Low 5.9-8.4 [facility] Total proteinOrdered By: Adelfo Rodrigez on 08-14-2024 Total protein 5.5 g/dL Low 5.9-8.4 [facility] Triglycerides measurementOrd ered By: Millie Massey on 08-14-2024 Triglycerides measurement 46 mg/dL <199 [facility] Troponin T.cardiac High sens itivity method [Mass/Vol]Ordered By: Ciaran Walsh on 08-14-2024 Troponin T.cardiac [Mass/volume] in Serum or Plasma by High sensitivity method 221 ng/L High <14 [facility] Troponin T.cardiac [Mass/vol ume] in Serum or Plasma by High sensitivity methodOrdered By: Ciaran Rodrigez on 08-14-2024 Troponin T.cardiac High sensitivity method [Mass/Vol] 221 ng/L High <14 [facility] Urea nitrogen [Mass/Vol]Orde red By: Ciaran Rodrigez on 08-14-2024 Serum or plasma urea nitrogen measurement (mass/volume) 39 mg/dL High 09-14 [facility] Urea nitrogen [Mass/Vol]Orde red By: Millie Massey on 08-14-2024 Serum or plasma urea nitrogen measurement (mass/volume) 39 mg/dL High 09-14 [facility] Urinalysis, Completeon 08-14 CA OX CRYSTAL 1+ /hpf Normal [facility] Comment on above: Order Comment: ADWOA CTOR TO SPECIFY Performed By: #### L 400.0001 ####[facility] [address] [facility] [id number] EPI,SQUAMOUS 0-5 SEEN Normal 5-10 [facility] Comment on above: Order Comment: ADWOA CTOR TO SPECIFY Performed By: #### L 400.0001 ####[facility] [address] [place], [address] RBC 0-5 SEEN Normal 0-5 [facility] Comment on above: Order Comment: ADWOA CTOR TO SPECIFY Performed By: #### L 400.0001 ####[facility] [address] [facility] [phone] WBC 25-50 SEEN Normal 0-5 [facility] Comment on above: Order Comment: ADWOA CTOR TO SPECIFY Performed By: #### L 400.0001 ####[facility] [address] [place], [place], [phone] BACTERIA 0 SEEN Normal None Seen [facility] Comment on above: Order Comment: ADWOA CTOR TO SPECIFY Performed By: #### L 400.0001 ####[facility] [address] [place], [place], [id number] Mucus Ql (Urine sed) 0 SEEN Normal [facility] Comment on above: Order Comment: ADWOA CTOR TO SPECIFY Performed By: #### L 400.0001 ####[facility] [address] [place], [place], [phone] Urine blood detectionOrdered By: Ciaran Rodrigez on 08-14-2024 Urine blood detection 25 /ul High Negative [facility] Urine clarityOrdered By: Adelfo Rodrigez on 08-14-2024 Clarity (U) Sl. Cloudy Clear [facility] Urine color determinationOrd ered By: Ciaran Rodrigez on 08-14-2024 Color (U) Yellow Yellow [facility] Urine cultureOrdered By: Adelfo Rodrigez on 08-14-2024 Bacteria identified Cx Nom (U) Enterococcus faecium Abnormal [facility] Bacteria identified Cx Nom (U) Citrobacter freundii Abnormal [facility] Urine culture Enterococcus faecium Abnormal [facility] Urine culture Citrobacter freundii Abnormal [facility] Urine glucose detectionOrder ed By: Ciaran Rodrigez on 08-14-2024 Glucose Ql (U) Normal mg/dl Normal [facility] Urine glucose detection Normal mg/dl Normal [facility] Urine leukocyte esterase det ection by dipstickOrdered By: Ciaran Rodrigez on 08-14-2024 Leukocyte esterase Test strip Ql (U) 500 /ul High Negative [facility] Urine pHOrdered By: Ciaran Ruelas on 08-14-2024 pH (U) 8.0 [pH] 5.0 - 8.0 [facility] Urine sediment bacteria coun t by microscopy (number/high power field)Ordered By: Ciaran Rodrigez on 08-14-2024 Bacteria LM.HPF (Urine sed) [#/Area] 0 /[HPF] None Seen [facility] Urine sediment bacteria count by microscopy (number/high power field) 0 SEEN /hpf [facility] Urine specific gravity measu rementOrdered By: Ciaran Rodrigez on 08-14-2024 Specific gravity (U) [Rel density] 1.010 1.002-1.03 0 [facility] Urine total bilirubin detect ion by test stripOrdered By: Ciaran Rodrigez on 08-14-2024 Urine total bilirubin detection by test strip Negative Negative [facility] Urine urobilinogen measureme ntOrdered By: Ciaran Rodrigez on 08-14-2024 Urobilinogen Ql (U) Normal mg/dl Normal [facility] Vitamin B12 ser/plasOrdered By: Millie Massey on 08-14-2024 Cobalamin (Vitamin B12) [Mass/Vol] 599 pg/mL 180-914 [facility] Vitamin D, 25-hydroxyOrdered By: Millie Massey on 08-14-2024 Vitamin D, 25-hydroxy 26.7 ng/mL Low 30-100 [facility] White blood cell (WBC) count Ordered By: Ciaran Rodrigez on 08-14-2024 White blood cell (WBC) count 9.0 K/mm3 4.4-11.0 [facility] White blood cell (WBC) count Ordered By: Millie Massey on 08-14-2024 WBC (Bld) [#/Vol] 4.1 10*3/uL Low 4.4-11.0 [facility] White blood cell (WBC) count 4.1 K/mm3 Low 4.4-11.0 [facility] White blood cell countOrdere d By: Ciaran Rodrigez on 08-14-2024 White blood cell count 25-50 SEEN /hpf 0-5 [facility] White blood cell count 25-50 SEEN /hpf 0-5 [facility] aPTT Coag (PPP) [Time]Ordere d By: Ciaran Rodrigez on 08-14-2024 Activated partial thromboplastin time (aPTT) in platelet poor plasma by coagulation a 33.6 Seconds 24.1-36.2 [facility] pH (U)Ordered By: Ciaran Prieto on 08-14-2024 Urine pH 8.0 5.0 - 8.0 [facility] pH (Unsp spec)Ordered By: Dakota Rodrigez on 08-14-2024 Measurement, pH 7.36 7.35-7.45 [facility] Absolute lymphocyte countOrd ered By: Nikolas Magaña on 08-13-2024 Lymphocytes Auto (Unsp spec) [#/Vol] 0.60 10*3/uL Low 0.83-4.51 [facility] Absolute neutrophil countOrd ered By: Nikolas Magaña on 08-13-2024 Absolute neutrophil count 3.4 X10^3/uL 2.0-7.7 [facility] Anion gap [Moles/Vol]Ordered By: Nikolas Magaña on 08-13-2024 Anion gap in Serum or Plasma 7 5-15 [facility] Anion gap in Serum or Plasma Ordered By: Nikolas Magaña on 08-13-2024 Anion gap [Moles/Vol] 7 mmol/L 5-15 [facility] Automated lymphocyte count a s percentage of total leukocytesOrdered By: Nikolas Magaña on 08-13-2024 Lymphocytes/100 WBC Auto (Unsp spec) 12.9 % Low 19-41 [facility] BUN/creatinine ratioOrdered By: Nikolas Magaña on 08-13-2024 Urea nitrogen/Creatinine [Mass ratio] 22.7 mg/mg High 10-20 [facility] BUN/creatinine ratio 22.7 RATIO High 10-20 [facility] Basic Metabolic Profile (BMP )on 08-13-2024 BUN/CRE 22.7 RATIO High 10-20 [facility] Comment on above: Order Comment: PER VALERIY MEDRANO TO DRAW @0815 WITH GLUCOSE Performed By: #### L 100.0100, L500.2500 ####[facility] [address] [place], [address] Calcium [Mass/Vol] 7.8 mg/dL Normal 7.6-11.0 [facility] Comment on above: Order Comment: PER P CU NURSE, OKAY TO DRAW @0815 WITH GLUCOSE Performed By: #### L 100.0100, L500.2500 ####[facility] [address] [place], [address] Chloride [Moles/Vol] 106 mmol/L Normal 98-108 [facility] Comment on above: Order Comment: PER P CU NURSE, IMANAY TO DRAW @0815 WITH GLUCOSE Performed By: #### L 100.0100, L500.2500 ####[facility] [address] [place], [address] CO2 [Moles/Vol] 23.8 mmol/L Normal 21.0-32.0 [facility] Comment on above: Order Comment: PER P CU NURSEIMANAY TO DRAW @0815 WITH GLUCOSE Performed By: #### L 100.0100, L500.2500 ####[facility] [address] [place], [address] Creatinine [Mass/Vol] 1.21 mg/dL High 0.70-1.20 [facility] Comment on above: Order Comment: PER P CU NURSEVALERIY TO DRAW @0815 WITH GLUCOSE Performed By: #### L 100.0100, L500.2500 ####[facility] [address] [place], [address] ECRCL 30.44 ml/min Low 50-250 [facility] Comment on above: Order Comment: PER P CU NURSEVALERIY TO DRAW @0815 WITH GLUCOSE Performed By: #### L 100.0100, L500.2500 ####[facility] [address] [place], [address] GAP 7 Normal 5-15 [facility] Comment on above: Order Comment: PER P CU NURSEIMANAY TO DRAW @0815 WITH GLUCOSE Performed By: #### L 100.0100, L500.2500 ####[facility] [address] [place], [address] GFR/1.73 sq M.predicted among non-blacks MDRD (S/P/Bld) [Vol rate/Area] 51 mL/min/{1.73_m2} Low >60 [facility] Comment on above: Order Comment: PER Karen JURADO NURSEVALERIY TO DRAW @0815 WITH GLUCOSE Result Comment: mL/m in/1.73m2 CKD-EPI Creatinine Equation (2020) Performed By: #### L 100.0100, L500.2500 ####[facility] [address] [place], [address] Glucose [Mass/Vol] 85 mg/dL Normal 70-99 [facility] Comment on above: Order Comment: PER Karen JURADO NURSEVALERIY TO DRAW @0815 WITH GLUCOSE Performed By: #### L 100.0100, L500.2500 ####[facility] [address] [place], [address] Potassium [Moles/Vol] 4.3 mmol/L Normal 3.3-5.1 [facility] Comment on above: Order Comment: PER Karen JURADO NURSEVALERIY TO DRAW @0815 WITH GLUCOSE Performed By: #### L 100.0100, L500.2500 ####[facility] [address] [place], [address] Sodium [Moles/Vol] 137 mmol/L Normal 133-145 [facility] Comment on above: Order Comment: PER Karen JURADO NURSEVALERIY TO DRAW @0815 WITH GLUCOSE Performed By: #### L 100.0100, L500.2500 ####[facility] [address] [place], [address] Urea nitrogen [Mass/Vol] 28 mg/dL High 4-19 [facility] Comment on above: Order Comment: PER Karen JURADO NURSEVALERIY TO DRAW @0815 WITH GLUCOSE Performed By: #### L 100.0100, L500.2500 ####[facility] [address] [place], [address] Basophil percentageOrdered B y: Nikolas Magaña on 08-13-2024 Basophils/100 WBC (Bld) 1.1 % High 0-1 [facility] Basophil percentage 1.1 % High 0-1 [facility] Bedside Glucoseon 08-13-2024 FINGERSTICK GLU 134 mg/dL High 74-106 [facility] Comment on above: Result Comment: LUIZA GEMENT OF PATIENT CARE PER NURSING PROTOCOL Performed By: #### L 501.080 ####[facility] [address] [facility] [address] FINGERSTICK GLU 86 mg/dL Normal 74-106 [facility] Comment on above: Result Comment: LUIZA GEMENT OF PATIENT CARE PER NURSING PROTOCOL Performed By: #### L 501.080 ####[facility] [address] [place], [address] FINGERSTICK GLU 31 mg/dL Invalid Interpretation Code 74-106 [facility] Comment on above: Result Comment: Dext tushar 50 GivenMANAGEMENT OF PATIENT CARE PER NURSING PROTOCOL Performed By: #### L 501.080 ####[facility] [address] [place], [address] FINGERSTICK GLU 54 mg/dL Low 74-106 [facility] Comment on above: Result Comment: LUIZA GEMENT OF PATIENT CARE PER NURSING PROTOCOL Performed By: #### L 501.080 ####[facility] [address] [place], [address] FINGERSTICK GLU 88 mg/dL Normal 74-106 [facility] Comment on above: Result Comment: LUIZA GEMENT OF PATIENT CARE PER NURSING PROTOCOL Performed By: #### L 501.080 ####[facility] [address] [place], [address] FINGERSTICK GLU 93 mg/dL Normal 74-106 [facility] Comment on above: Result Comment: LUIZA GEMENT OF PATIENT CARE PER NURSING PROTOCOL Performed By: #### L 501.080 ####[facility] [address] [place], [address] CBC W/Diff, Automatedon - Absolute Lymph 0.60 X10 3/uL Low 0.83-4.51 [facility] Comment on above: Order Comment: PER P CU NURSE, IMANAY TO DRAW @0815 WITH GLUCOSE Performed By: #### L 100.0100, L500.2500 ####[facility] [address] [place], [address] Absolute Neut 3.4 X10 3/uL Normal 2.0-7.7 [facility] Comment on above: Order Comment: PER P CU NURSE, IMANAY TO DRAW @0815 WITH GLUCOSE Performed By: #### L 100.0100, L500.2500 ####[facility] [address] [place], [address] Basophils/100 WBC (Bld) 1.1 % High 0-1 [facility] Comment on above: Order Comment: PER P CU NURSE, IMANAY TO DRAW @0815 WITH GLUCOSE Performed By: #### L 100.0100, L500.2500 ####[facility] [address] [place], [address] Eosinophils/100 WBC (Bld) 3.4 % Normal 0-5 [facility] Comment on above: Order Comment: PER P CU NURSEIMANAY TO DRAW @0815 WITH GLUCOSE Performed By: #### L 100.0100, L500.2500 ####[facility] [address] [place], [address] Erythrocyte distribution width (RBC) [Ratio] 20.0 % High 11.6-14.6 [facility] Comment on above: Order Comment: PER P CU NURSEIMANAY TO DRAW @0815 WITH GLUCOSE Performed By: #### L 100.0100, L500.2500 ####[facility] [address] [place], [address] Hematocrit (Bld) [Volume fraction] 26.7 % Low 37-47 [facility] Comment on above: Order Comment: PER P CU NURSEVALERIY TO DRAW @0815 WITH GLUCOSE Performed By: #### L 100.0100, L500.2500 ####[facility] [address] [place], [address] Hemoglobin (Bld) [Mass/Vol] 8.1 g/dL Low 12.0-15.0 [facility] Comment on above: Order Comment: PER P CU NURSEVALERIY TO DRAW @0815 WITH GLUCOSE Performed By: #### L 100.0100, L500.2500 ####[facility] [address] [place], [address] IG% 2.400 High 0.0-0.9 [facility] Comment on above: Order Comment: PER P CU NURSEVALERIY TO DRAW @0815 WITH GLUCOSE Result Comment: IG% - Immature Granulocytes (promyelocytes, myelocytes andmetamyelocytes) > 1% indicates that a LEFT SHIFT is Present. Performed By: #### L 100.0100, L500.2500 ####[facility] [address] [place], [address] Lymphocytes/100 WBC (Bld) 12.9 % Low 19-41 [facility] Comment on above: Order Comment: PER P CU NURSEVALERIY TO DRAW @0815 WITH GLUCOSE Performed By: #### L 100.0100, L500.2500 ####[facility] [address] [place], [address] [facility] (RBC) [Entitic mass] 27.3 pg Normal 27.0-32.0 [facility] Comment on above: Order Comment: PER P CU NURSEVALERIY TO DRAW @0815 WITH GLUCOSE Performed By: #### L 100.0100, L500.2500 ####[facility] [address] [place], [address] MCHC (RBC) [Mass/Vol] 30.3 g/dL Low 32-36 [facility] Comment on above: Order Comment: PER P CU NURSE, OKAY TO DRAW @0815 WITH GLUCOSE Performed By: #### L 100.0100, L500.2500 ####[facility] [address] [place], [address] MCV (RBC) [Entitic vol] 89.9 fL Normal 81-99 [facility] Comment on above: Order Comment: PER P CU NURSE, OKAY TO DRAW @0815 WITH GLUCOSE Performed By: #### L 100.0100, L500.2500 ####[facility] [address] [place], [address] Monocytes/100 WBC (Bld) 8.2 % Normal 0-10 [facility] Comment on above: Order Comment: PER P CU NURSE, OKAY TO DRAW @0815 WITH GLUCOSE Performed By: #### L 100.0100, L500.2500 ####[facility] [address] [place], [address] Neutrophils/100 WBC (Bld) 72.0 % High 47-70 [facility] Comment on above: Order Comment: PER P CU NURSE, OKAY TO DRAW @0815 WITH GLUCOSE Performed By: #### L 100.0100, L500.2500 ####[facility] [address] [place], [address] Nucleated RBC (Bld) [#/Vol] 0 10*3/uL Normal 0-5 [facility] Comment on above: Order Comment: PER P CU NURSE, OKAY TO DRAW @0815 WITH GLUCOSE Performed By: #### L 100.0100, L500.2500 ####[facility] [address] [place], [address] Platelet mean volume (Bld) [Entitic vol] 10.2 fL Normal 6.2-12.0 [facility] Comment on above: Order Comment: PER P CU NURSE, OKAY TO DRAW @0815 WITH GLUCOSE Performed By: #### L 100.0100, L500.2500 ####[facility] [address] [place], [address] Platelets (Bld) [#/Vol] 120 10*3/uL Low 150-450 [facility] Comment on above: Order Comment: PER P CU NURSEVALERIY TO DRAW @0815 WITH GLUCOSE Performed By: #### L 100.0100, L500.2500 ####[facility] [address] [place], [address] RBC (Bld) [#/Vol] 2.97 10*6/uL Low 4.2-5.4 [facility] Comment on above: Order Comment: PER P CU NURSEVALERIY TO DRAW @0815 WITH GLUCOSE Performed By: #### L 100.0100, L500.2500 ####[facility] [address] [place], [address] RDW SD 62.6 fl High 35.1-43.9 [facility] Comment on above: Order Comment: PER P CU NURSEVALERIY TO DRAW @0815 WITH GLUCOSE Performed By: #### L 100.0100, L500.2500 ####[facility] [address] [place], [address] WBC (Bld) [#/Vol] 4.7 10*3/uL Normal 4.4-11.0 [facility] Comment on above: Order Comment: PER P CU NURSEVALERIY TO DRAW @0815 WITH GLUCOSE Performed By: #### L 100.0100, L500.2500 ####[facility] [address] [place], [address] Calcium [Mass/Vol]Ordered By : Nikolas Magaña on 08-13-2024 Serum or plasma calcium measurement (mass/volume) 7.8 mg/dL 7.6-11.0 [facility] Carbon dioxide, total [Moles /volume] in Central venous bloodOrdered By: Nikolas Magaña on 08-13-2024 CO2 [Moles/Vol] 23.8 mmol/L 21.0-32.0 [facility] Carbon dioxide, total [Moles/volume] in Central venous blood 23.8 mmol/L 21.0-32.0 [facility] Chloride assayOrdered By: Oscar Magaña on 08-13-2024 Chloride [Moles/Vol] 106 mmol/L 98-108 [facility] Chloride assay 106 mmol/L 98-108 [facility] Creatinine [Mass/Vol]Ordered By: Nikolas Magaña on 08-13-2024 Serum creatinine measurement (mass/volume) 1.21 mg/dL High 0.70-1.20 [facility] Eosinophil percentageOrdered By: Nikolas Magaña on 08-13-2024 Eosinophils/100 WBC (Bld) 3.4 % 0-5 [facility] Eosinophil percentage 3.4 % 0-5 [facility] Erythrocyte distribution wid th (RBC) [Ratio]Ordered By: Nikolas Magaña on 08-13-2024 Erythrocyte distribution width ratio 20.0 % High 11.6-14.6 [facility] Erythrocyte distribution wid th ratioOrdered By: Nikolas Magaña on 08-13-2024 Erythrocyte distribution width (RBC) [Ratio] 20.0 % High 11.6-14.6 [facility] Erythrocyte distribution wid th standard deviationOrdered By: Nikolas Magaña on 08-13-2024 Erythrocyte distribution width (RBC) [Ratio] 62.6 fl High 35.1-43.9 [facility] Erythrocyte distribution width standard deviation 62.6 fl High 35.1-43.9 [facility] Estimation of creatinine austen aranceOrdered By: Nikolas Magaña on 08-13-2024 Estimation of creatinine clearance 30.44 ml/min Low 50-250 [facility] GFR/1.73 sq M.predicted víctor g non-blacks MDRD (S/P/Bld) [Vol rate/Area]Ordered By: Nikolas Magaña on 08-13-2024 Glomerular filtration rate (GFR) estimation/1.73 sq m using serum, plasma, or whole b 51 Low >60 [facility] Glomerular filtration rate ( GFR) estimation/1.73 sq m using serum, plasma, or whole bOrdered By: Nikolas Magaña on 08-13-2024 GFR/1.73 sq M.predicted among non-blacks MDRD (S/P/Bld) [Vol rate/Area] 51 mL/min/{1.73_m2} Low >60 [facility] Glucoseon 08-13-2024 Glucose [Mass/Vol] 121 mg/dL High 70-99 [facility] Comment on above: Performed By: #### L 501.0100 ####[facility] [address] [place], [address] Glucose [Mass/Vol] 105 mg/dL High 70-99 [facility] Comment on above: Performed By: #### L 501.0100 ####[facility] [address] [place], [address] Glucose [Mass/Vol] 103 mg/dL High 70-99 [facility] Comment on above: Performed By: #### L 501.0100 ####[facility] [address] [place], [address] Glucose [Mass/Vol]Ordered By : Judd Galvin on 08-13-2024 Serum glucose measurement (mass/volume) 121 mg/dL High 70-99 [facility] Glucose measurement at bedsi deOrdered By: Nikolas Magaña on 08-13-2024 Glucose [Mass/Vol] 134 mg/dL High 74-106 [facility] Glucose measurement at bedside 134 mg/dL High 74-106 [facility] HbA1c (Bld) [Mass fraction]O rdered By: Nikolas Magaña on 08-13-2024 Hemoglobin A1c percentage 5.1 % Low >5.7 [facility] Hematocrit Auto (Bld) [Volum e fraction]Ordered By: Nikolas Magaña on 08-13-2024 Hematocrit (Bld) [Volume fraction] 26.7 % Low 37-47 [facility] Automated blood hematocrit (percentage) 26.7 % Low 37-47 [facility] Hemoglobin A1con 08-13-2024 HbA1c (Bld) [Mass fraction] 5.1 % Low <=5.6 [facility] Comment on above: Order Comment: PER P CU NURSE, VALERIY TO DRAW @0815 WITH GLUCOSE Performed By: #### L 501.9985 ####[facility] [address] [place], [place], [id number] Hemoglobin A1c percentageOrd ered By: Nikolas Magaña on 08-13-2024 HbA1c (Bld) [Mass fraction] 5.1 % Low >5.7 [facility] Hemoglobin measurementOrdere d By: Nikolas Magaña on 08-13-2024 Hemoglobin (Bld) [Mass/Vol] 8.1 g/dL Low 12.0-15.0 [facility] Hemoglobin measurement 8.1 g/dL Low 12.0-15.0 [facility] Immature granulocytes/100 WB C Auto (Bld)Ordered By: Nikolas Magaña on 08-13-2024 Immature granulocytes/100 WBC (Bld) 2.400 % High 0.0-0.9 [facility] Automated immature granulocyte percentage 2.400 % High 0.0-0.9 [facility] Lymphocytes Auto (Unsp spec) [#/Vol]Ordered By: Nikolas Magaña on 08-13-2024 Absolute lymphocyte count 0.60 X10^3/uL Low 0.83-4.51 [facility] Lymphocytes/100 WBC Auto (Un sp spec)Ordered By: Nikolas Magaña on 08-13-2024 Automated lymphocyte count as percentage of total leukocytes 12.9 % Low 19-41 [facility] MCV (RBC) [Entitic vol]Order ed By: Nikolas Magaña on 08-13-2024 MCV (mean corpuscular volume) determination 89.9 fL 81-99 [facility] MCV (mean corpuscular volume ) determinationOrdered By: Nikolas Magaña on 08-13-2024 MCV (RBC) [Entitic vol] 89.9 fL 81-99 [facility] Mean corpuscular hemoglobin (MCH) determinationOrdered By: Nikolas Magaña on 08-13-2024 MCH (RBC) [Entitic mass] 27.3 pg 27.0-32.0 [facility] Mean corpuscular hemoglobin (MCH) determination 27.3 pg 27.0-32.0 [facility] Mean corpuscular hemoglobin concentration (MCHC) determinationOrdered By: Nikolas Magaña on 08-13-2024 Mean corpuscular hemoglobin concentration (MCHC) determination 30.3 g/dL Low 32-36 [facility] Mean platelet volume determi nationOrdered By: Nikolas Magaña on 08-13-2024 Mean platelet volume determination 10.2 fl 6.2-12.0 [facility] Monocyte percentageOrdered B y: Nikolas Magaña on 08-13-2024 Monocytes/100 WBC (Bld) 8.2 % 0-10 [facility] Monocyte percentage 8.2 % 0-10 [facility] Neutrophil percentageOrdered By: Nikolas Magaña on 08-13-2024 Neutrophils/100 WBC (Bld) 72.0 % High 47-70 [facility] Neutrophil percentage 72.0 % High 47-70 [facility] Nucleated red blood cell per centageOrdered By: Nikolas Magaña on 08-13-2024 Nucleated red blood cell percentage 0 % 0-5 [facility] Platelet countOrdered By: Oscar Magaña on 08-13-2024 Platelets (Bld) [#/Vol] 120 10*3/uL Low 150-450 [facility] Platelet count 120 K/mm3 Low 150-450 [facility] Potassium (Unsp spec) [Mass/ Vol]Ordered By: Nikolas Magaña on 08-13-2024 Potassium measurement (mass/volume) 4.3 mmol/L 3.3-5.1 [facility] Potassium measurement (mass/ volume)Ordered By: Nikolas Magaña on 08-13-2024 Potassium (Unsp spec) [Mass/Vol] 4.3 mmol/L 3.3-5.1 [facility] RBC Auto (Bld) [#/Vol]Ordere d By: Nikolas Magaña on 08-13-2024 RBC (Bld) [#/Vol] 2.97 10*6/uL Low 4.2-5.4 [facility] Automated blood erythrocyte count 2.97 M/mm3 Low 4.2-5.4 [facility] Serum creatinine measurement (mass/volume)Ordered By: Nikolas Magaña on 08-13-2024 Creatinine [Mass/Vol] 1.21 mg/dL High 0.70-1.20 [facility] Serum glucose measurement (m ass/volume)Ordered By: Judd Galvin on 08-13-2024 Glucose [Mass/Vol] 121 mg/dL High 70-99 [facility] Serum or plasma calcium megan urement (mass/volume)Ordered By: Nikolas Magaña on 08-13-2024 Calcium [Mass/Vol] 7.8 mg/dL 7.6-11.0 [facility] Serum or plasma urea nitroge n measurement (mass/volume)Ordered By: Nikolas Magaña on 08-13-2024 Urea nitrogen [Mass/Vol] 28 mg/dL High 09-14 [facility] Sodium levelOrdered By: Hemanth Magaña on 08-13-2024 Sodium [Moles/Vol] 137 mmol/L 133-145 [facility] Sodium level 137 mmol/L 133-145 [facility] Urea nitrogen [Mass/Vol]Orde red By: Nikolas Magaña on 08-13-2024 Serum or plasma urea nitrogen measurement (mass/volume) 28 mg/dL High 09-14 [facility] White blood cell (WBC) count Ordered By: Nikolas Magaña on 08-13-2024 WBC (Bld) [#/Vol] 4.7 10*3/uL 4.4-11.0 [facility] White blood cell (WBC) count 4.7 K/mm3 4.4-11.0 [facility] ABORh Blood Type, Patienton 08-12-2024 ABO and Rh group Nom (Bld) Blood group O Rh(D) positive Normal [facility] Comment on above: Order Comment: CMV N EG? NNumber of units to transfuse: 1Reason for Ordering Blood: AcuteAre the blood/blood products to be transfused? YIs the patient having/had surgery? NNWhen ReadyNYA Performed By: #### B JUWAN, [id number], BTS, BtABORH, [id number] ####[facility] [address] [place], [place], [id number] 08-12-2024 ANTIBODY ID Normal [facility] Comment on above: Result Comment: CFYA Performed By: #### B RC, [id number], BTS, BtABORH, [id number] ####[facility] [address] [place], [address] BRCon 08-12-2024 RC Normal [facility] Comment on above: Result Comment: [id number] ON RC TRANSFUSED 08/12/24 1538 Performed By: #### B RC, [id number], BTS, BtABORH, [id number] ####[facility] [address] [place], [address] Basic Metabolic Profile (BMP )on 08-12-2024 BUN/CRE 18.0 RATIO Normal 10-20 [facility] Comment on above: Performed By: #### L 500.2500, L100.0100 ####[facility] [address] [place], [address] Calcium [Mass/Vol] 7.6 mg/dL Normal 7.6-11.0 [facility] Comment on above: Performed By: #### L 500.2500, L100.0100 ####[facility] [address] [place], [address] Chloride [Moles/Vol] 106 mmol/L Normal 98-108 [facility] Comment on above: Performed By: #### L 500.2500, L100.0100 ####[facility] [address] [place], [address] CO2 [Moles/Vol] 22.3 mmol/L Normal 21.0-32.0 [facility] Comment on above: Performed By: #### L 500.2500, L100.0100 ####[facility] [address] [place], [address] Creatinine [Mass/Vol] 1.47 mg/dL High 0.70-1.20 [facility] Comment on above: Performed By: #### L 500.2500, L100.0100 ####[facility] [address] [place], [address] ECRCL 26.31 ml/min Low 50-250 [facility] Comment on above: Performed By: #### L 500.2500, L100.0100 ####[facility] [address] [place], [address] GAP 8 Normal 5-15 [facility] Comment on above: Performed By: #### L 500.2500, L100.0100 ####[facility] [address] [place], [address] GFR/1.73 sq M.predicted among non-blacks MDRD (S/P/Bld) [Vol rate/Area] 40 mL/min/{1.73_m2} Low >60 [facility] Comment on above: Result Comment: mL/m in/1.73m2 CKD-EPI Creatinine Equation (2020) Performed By: #### L 500.2500, L100.0100 ####[facility] [address] [place], [address] Glucose [Mass/Vol] 104 mg/dL High 70-99 [facility] Comment on above: Performed By: #### L 500.2500, L100.0100 ####[facility] [address] [place], [address] Potassium [Moles/Vol] 4.0 mmol/L Normal 3.3-5.1 [facility] Comment on above: Performed By: #### L 500.2500, L100.0100 ####[facility] [address] [place], [address] Sodium [Moles/Vol] 136 mmol/L Normal 133-145 [facility] Comment on above: Performed By: #### L 500.2500, L100.0100 ####[facility] [address] [place], [address] Urea nitrogen [Mass/Vol] 27 mg/dL High 4-19 [facility] Comment on above: Performed By: #### L 500.2500, L100.0100 ####[facility] [address] [place], [address] Bedside Glucoseon 08-12-2024 FINGERSTICK GLU 61 mg/dL Low 74-106 [facility] Comment on above: Result Comment: LUIZA DIAZ OF PATIENT CARE PER NURSING PROTOCOL Performed By: #### L 501.080 ####[facility] [address] [place], [address] CBC W/Diff, Automatedon 07-27 Absolute Lymph 0.51 X10 3/uL Low 0.83-4.51 [facility] Comment on above: Performed By: #### L 500.2500, L100.0100 ####[facility] [address] [place], [address] Absolute Neut 4.0 X10 3/uL Normal 2.0-7.7 [facility] Comment on above: Performed By: #### L 500.2500, L100.0100 ####[facility] [address] [place], [address] Basophils/100 WBC (Bld) 0.4 % Normal 0-1 [facility] Comment on above: Performed By: #### L 500.2500, L100.0100 ####[facility] [address] [place], [address] Eosinophils/100 WBC (Bld) 3.4 % Normal 0-5 [facility] Comment on above: Performed By: #### L 500.2500, L100.0100 ####[facility] [address] [place], [address] Erythrocyte distribution width (RBC) [Ratio] 19.9 % High 11.6-14.6 [facility] Comment on above: Performed By: #### L 500.2500, L100.0100 ####[facility] [address] [place], [address] Hematocrit (Bld) [Volume fraction] 21.7 % Low 37-47 [facility] Comment on above: Performed By: #### L 500.2500, L100.0100 ####[facility] [address] [place], [address] Hemoglobin (Bld) [Mass/Vol] 6.6 g/dL Low 12.0-15.0 [facility] Comment on above: Performed By: #### L 500.2500, L100.0100 ####[facility] [address] [place], [address] IG% 1.600 High 0.0-0.9 [facility] Comment on above: Result Comment: IG% - Immature Granulocytes (promyelocytes, myelocytes andmetamyelocytes) > 1% indicates that a LEFT SHIFT is Present. Performed By: #### L 500.2500, L100.0100 ####[facility] [address] [place], [address] Lymphocytes/100 WBC (Bld) 10.1 % Low 19-41 [facility] Comment on above: Performed By: #### L 500.2500, L100.0100 ####[facility] [address] [place], [address] MCH (RBC) [Entitic mass] 27.2 pg Normal 27.0-32.0 [facility] Comment on above: Performed By: #### L 500.2500, L100.0100 ####[facility] [address] [place], [address] MCHC (RBC) [Mass/Vol] 30.4 g/dL Low 32-36 [facility] Comment on above: Performed By: #### L 500.2500, L100.0100 ####[facility] [address] [place], [address] MCV (RBC) [Entitic vol] 89.3 fL Normal 81-99 [facility] Comment on above: Performed By: #### L 500.2500, L100.0100 ####[facility] [address] [place], [address] Monocytes/100 WBC (Bld) 6.3 % Normal 0-10 [facility] Comment on above: Performed By: #### L 500.2500, L100.0100 ####[facility] [address] [place], [address] Neutrophils/100 WBC (Bld) 78.2 % High 47-70 [facility] Comment on above: Performed By: #### L 500.2500, L100.0100 ####[facility] [address] [place], [address] Nucleated RBC (Bld) [#/Vol] 0 10*3/uL Normal 0-5 [facility] Comment on above: Performed By: #### L 500.2500, L100.0100 ####[facility] [address] [place], [address] Platelet mean volume (Bld) [Entitic vol] 10.1 fL Normal 6.2-12.0 [facility] Comment on above: Performed By: #### L 500.2500, L100.0100 ####[facility] [address] [place], [address] Platelets (Bld) [#/Vol] 107 10*3/uL Low 150-450 [facility] Comment on above: Performed By: #### L 500.2500, L100.0100 ####[facility] [address] [place], [address] RBC (Bld) [#/Vol] 2.43 10*6/uL Low 4.2-5.4 [facility] Comment on above: Performed By: #### L 500.2500, L100.0100 ####[facility] [address] [place], [address] RDW SD 63.5 fl High 35.1-43.9 [facility] Comment on above: Performed By: #### L 500.2500, L100.0100 ####[facility] [address] [place], [address] WBC (Bld) [#/Vol] 5.1 10*3/uL Normal 4.4-11.0 [facility] Comment on above: Performed By: #### L 500.2500, L100.0100 ####[facility] [address] [place], [address] Glucoseon 08-12-2024 Glucose [Mass/Vol] 102 mg/dL High 70-99 [facility] Comment on above: Performed By: #### L 501.0100 ####[facility] [address] [place], [address] Glucose [Mass/Vol] 113 mg/dL High 70-99 [facility] Comment on above: Performed By: #### L 501.0100 ####[facility] [address] [place], [address] Glucose [Mass/Vol] 85 mg/dL Normal 70-99 [facility] Comment on above: Performed By: #### L 501.0100 ####[facility] [address] [place], [address] Glucose [Mass/Vol] 109 mg/dL High 70-99 [facility] Comment on above: Performed By: #### L 501.0100 ####[facility] [address] [place], [address] Type AND Screenon 08-12-2024 Ab SCREEN GEL Positive Abnormal [facility] Comment on above: Order Comment: CMV N EG? NNumber of units to transfuse: 1Reason for Ordering Blood: AcuteAre the blood/blood products to be transfused? YIs the patient having/had surgery? NNWhen ReadyNYA Result Comment: AMENDED REPORT 08/12/241424: Antibody Screen previously reported as:Test not performed AMENDED REPORT 08/12/241424: Antibody Screen previously reported as:Test not performed Performed By: #### B RC, [id number], BTS, BtABORH, [id number] ####[facility] [address] [place], [address] Basic Metabolic Profile (BMP )on 08-11-2024 BUN/CRE 18.6 RATIO Normal 10-20 [facility] Comment on above: Performed By: #### L 100.0100, L500.2500 ####[facility] [address] [place], [address] Calcium [Mass/Vol] 7.4 mg/dL Low 7.6-11.0 [facility] Comment on above: Performed By: #### L 100.0100, L500.2500 ####[facility] [address] [place], [address] Chloride [Moles/Vol] 106 mmol/L Normal 98-108 [facility] Comment on above: Performed By: #### L 100.0100, L500.2500 ####[facility] [address] [place], [address] CO2 [Moles/Vol] 21.3 mmol/L Normal 21.0-32.0 [facility] Comment on above: Performed By: #### L 100.0100, L500.2500 ####[facility] [address] [place], [address] Creatinine [Mass/Vol] 1.39 mg/dL High 0.70-1.20 [facility] Comment on above: Performed By: #### L 100.0100, L500.2500 ####[facility] [address] [place], [address] ECRCL 27.82 ml/min Low 50-250 [facility] Comment on above: Performed By: #### L 100.0100, L500.2500 ####[facility] [address] [place], [address] GAP 9 Normal 5-15 [facility] Comment on above: Performed By: #### L 100.0100, L500.2500 ####[facility] [address] [place], [address] GFR/1.73 sq M.predicted among non-blacks MDRD (S/P/Bld) [Vol rate/Area] 43 mL/min/{1.73_m2} Low >60 [facility] Comment on above: Result Comment: mL/m in/1.73m2 CKD-EPI Creatinine Equation (2020) Performed By: #### L 100.0100, L500.2500 ####[facility] [address] [place], [address] Glucose [Mass/Vol] 114 mg/dL High 70-99 [facility] Comment on above: Performed By: #### L 100.0100, L500.2500 ####[facility] [address] [place], [address] Potassium [Moles/Vol] 3.7 mmol/L Normal 3.3-5.1 [facility] Comment on above: Performed By: #### L 100.0100, L500.2500 ####[facility] [address] [place], [address] Sodium [Moles/Vol] 136 mmol/L Normal 133-145 [facility] Comment on above: Performed By: #### L 100.0100, L500.2500 ####[facility] [address] [place], [address] Urea nitrogen [Mass/Vol] 26 mg/dL High 4-19 [facility] Comment on above: Performed By: #### L 100.0100, L500.2500 ####[facility] [address] [place], [address] CBC W/Diff, Automatedon 03- Absolute Lymph 0.53 X10 3/uL Low 0.83-4.51 [facility] Comment on above: Performed By: #### L 100.0100, L500.2500 ####[facility] [address] [place], [address] Absolute Neut 5.3 X10 3/uL Normal 2.0-7.7 [facility] Comment on above: Performed By: #### L 100.0100, L500.2500 ####[facility] [address] [place], [address] Basophils/100 WBC (Bld) 0.6 % Normal 0-1 [facility] Comment on above: Performed By: #### L 100.0100, L500.2500 ####[facility] [address] [place], [address] Eosinophils/100 WBC (Bld) 2.8 % Normal 0-5 [facility] Comment on above: Performed By: #### L 100.0100, L500.2500 ####[facility] [address] [place], [address] Erythrocyte distribution width (RBC) [Ratio] 19.5 % High 11.6-14.6 [facility] Comment on above: Performed By: #### L 100.0100, L500.2500 ####[facility] [address] [place], [address] Hematocrit (Bld) [Volume fraction] 24.7 % Low 37-47 [facility] Comment on above: Performed By: #### L 100.0100, L500.2500 ####[facility] [address] [place], [address] Hemoglobin (Bld) [Mass/Vol] 7.4 g/dL Low 12.0-15.0 [facility] Comment on above: Performed By: #### L 100.0100, L500.2500 ####[facility] [address], [address] IG% 1.400 High 0.0-0.9 [facility] Comment on above: Result Comment: IG% - Immature Granulocytes (promyelocytes, myelocytes andmetamyelocytes) > 1% indicates that a LEFT SHIFT is Present. Performed By: #### L 100.0100, L500.2500 ####[facility] [address] [place], [address] Lymphocytes/100 WBC (Bld) 8.3 % Low 19-41 [facility] Comment on above: Performed By: #### L 100.0100, L500.2500 ####[facility] [address] [place], [address] MCH (RBC) [Entitic mass] 26.9 pg Low 27.0-32.0 [facility] Comment on above: Performed By: #### L 100.0100, L500.2500 ####[facility] [address], [address] MCHC (RBC) [Mass/Vol] 30.0 g/dL Low 32-36 [facility] Comment on above: Performed By: #### L 100.0100, L500.2500 ####[facility] [address], [address] MCV (RBC) [Entitic vol] 89.8 fL Normal 81-99 [facility] Comment on above: Performed By: #### L 100.0100, L500.2500 ####[facility] [address], [address] Monocytes/100 WBC (Bld) 4.8 % Normal 0-10 [facility] Comment on above: Performed By: #### L 100.0100, L500.2500 ####[facility] [address] [place], [address] Neutrophils/100 WBC (Bld) 82.1 % High 47-70 [facility] Comment on above: Performed By: #### L 100.0100, L500.2500 ####[facility] [address] [place], [address] Nucleated RBC (Bld) [#/Vol] 0 10*3/uL Normal 0-5 [facility] Comment on above: Performed By: #### L 100.0100, L500.2500 ####[facility] [address] [place], [address] Platelet mean volume (Bld) [Entitic vol] 10.0 fL Normal 6.2-12.0 [facility] Comment on above: Performed By: #### L 100.0100, L500.2500 ####[facility] [address] [place], [address] Platelets (Bld) [#/Vol] 113 10*3/uL Low 150-450 [facility] Comment on above: Performed By: #### L 100.0100, L500.2500 ####[facility] [address] [place], [address] RBC (Bld) [#/Vol] 2.75 10*6/uL Low 4.2-5.4 [facility] Comment on above: Performed By: #### L 100.0100, L500.2500 ####[facility] [address] [place], [address] RDW SD 62.7 fl High 35.1-43.9 [facility] Comment on above: Performed By: #### L 100.0100, L500.2500 ####[facility] [address] [place], [address] WBC (Bld) [#/Vol] 6.4 10*3/uL Normal 4.4-11.0 [facility] Comment on above: Performed By: #### L 100.0100, L500.2500 ####[facility] [address] [place], [address] Glucoseon 08-11-2024 Glucose [Mass/Vol] 99 mg/dL Normal 70-99 [facility] Comment on above: Performed By: #### L 501.0100 ####[facility] [address] [place], [address] Glucose [Mass/Vol] 99 mg/dL Normal 70-99 [facility] Comment on above: Performed By: #### L 501.0100 ####[facility] [address] [place], [address] Glucose [Mass/Vol] 123 mg/dL High 70-99 [facility] Comment on above: Performed By: #### L 501.0100 ####[facility] [address] [place], [address] Glucose [Mass/Vol] 127 mg/dL High 70-99 [facility] Comment on above: Performed By: #### L 501.0100 ####[facility] [address] [place], [address] Basic Metabolic Profile (BMP )on 08-10-2024 BUN/CRE 18.0 RATIO Normal 10-20 [facility] Comment on above: Performed By: #### L 100.0100, L500.2500 ####[facility] [address] [place], [address] Calcium [Mass/Vol] 7.6 mg/dL Normal 7.6-11.0 [facility] Comment on above: Performed By: #### L 100.0100, L500.2500 ####[facility] [address] [place], [address] Chloride [Moles/Vol] 105 mmol/L Normal 98-108 [facility] Comment on above: Performed By: #### L 100.0100, L500.2500 ####[facility] [address] [place], [address] CO2 [Moles/Vol] 23.2 mmol/L Normal 21.0-32.0 [facility] Comment on above: Performed By: #### L 100.0100, L500.2500 ####[facility] [address] [place], [address] Creatinine [Mass/Vol] 1.17 mg/dL Normal 0.70-1.20 [facility] Comment on above: Performed By: #### L 100.0100, L500.2500 ####[facility] [address] [place], [address] ECRCL 33.06 ml/min Low 50-250 [facility] Comment on above: Performed By: #### L 100.0100, L500.2500 ####[facility] [address] [place], [address] GAP 8 Normal 5-15 [facility] Comment on above: Performed By: #### L 100.0100, L500.2500 ####[facility] [address] [place], [address] GFR/1.73 sq M.predicted among non-blacks MDRD (S/P/Bld) [Vol rate/Area] 53 mL/min/{1.73_m2} Low >60 [facility] Comment on above: Result Comment: mL/m in/1.73m2 CKD-EPI Creatinine Equation (2020) Performed By: #### L 100.0100, L500.2500 ####[facility] [address] [place], [address] Glucose [Mass/Vol] 106 mg/dL High 70-99 [facility] Comment on above: Performed By: #### L 100.0100, L500.2500 ####[facility] [address] [place], [address] Potassium [Moles/Vol] 3.7 mmol/L Normal 3.3-5.1 [facility] Comment on above: Performed By: #### L 100.0100, L500.2500 ####[facility] [address] [place], [address] Sodium [Moles/Vol] 136 mmol/L Normal 133-145 [facility] Comment on above: Performed By: #### L 100.0100, L500.2500 ####[facility] [address] [place], [address] Urea nitrogen [Mass/Vol] 21 mg/dL High 4-19 [facility] Comment on above: Performed By: #### L 100.0100, L500.2500 ####[facility] [address] [place], [address] Bedside Glucoseon 08-10-2024 FINGERSTICK GLU 45 mg/dL Low 74-106 [facility] Comment on above: Result Comment: LUIZA DIAZ OF PATIENT CARE PER NURSING PROTOCOL Performed By: #### L 501.080 ####[facility] [address] [place], [address] CBC W/Diff, Automatedon - Absolute Lymph 0.58 X10 3/uL Low 0.83-4.51 [facility] Comment on above: Performed By: #### L 100.0100, L500.2500 ####[facility] [address] [place], [address] Absolute Neut 5.6 X10 3/uL Normal 2.0-7.7 [facility] Comment on above: Performed By: #### L 100.0100, L500.2500 ####[facility] [address] [place], [address] Basophils/100 WBC (Bld) 1.1 % High 0-1 [facility] Comment on above: Performed By: #### L 100.0100, L500.2500 ####[facility] [address] [place], [address] Eosinophils/100 WBC (Bld) 3.0 % Normal 0-5 [facility] Comment on above: Performed By: #### L 100.0100, L500.2500 ####[facility] [address] [place], [address] Erythrocyte distribution width (RBC) [Ratio] 19.4 % High 11.6-14.6 [facility] Comment on above: Performed By: #### L 100.0100, L500.2500 ####[facility] [address] [place], [address] Hematocrit (Bld) [Volume fraction] 29.4 % Low 37-47 [facility] Comment on above: Performed By: #### L 100.0100, L500.2500 ####[facility] [address] [place], [address] Hemoglobin (Bld) [Mass/Vol] 8.8 g/dL Low 12.0-15.0 [facility] Comment on above: Performed By: #### L 100.0100, L500.2500 ####[facility] [address] [place], [address] IG% 1.400 High 0.0-0.9 [facility] Comment on above: Result Comment: IG% - Immature Granulocytes (promyelocytes, myelocytes andmetamyelocytes) > 1% indicates that a LEFT SHIFT is Present. Performed By: #### L 100.0100, L500.2500 ####[facility] [address], [address] Lymphocytes/100 WBC (Bld) 8.3 % Low 19-41 [facility] Comment on above: Performed By: #### L 100.0100, L500.2500 ####[facility] [address] [place], [address] MCH (RBC) [Entitic mass] 26.8 pg Low 27.0-32.0 [facility] Comment on above: Performed By: #### L 100.0100, L500.2500 ####[facility] [address] [place], [address] MCHC (RBC) [Mass/Vol] 29.9 g/dL Low 32-36 [facility] Comment on above: Performed By: #### L 100.0100, L500.2500 ####[facility] [address] [place], [address] MCV (RBC) [Entitic vol] 89.6 fL Normal 81-99 [facility] Comment on above: Performed By: #### L 100.0100, L500.2500 ####[facility] [address] [place], [address] Monocytes/100 WBC (Bld) 5.2 % Normal 0-10 [facility] Comment on above: Performed By: #### L 100.0100, L500.2500 ####[facility] [address] [place], [address] Neutrophils/100 WBC (Bld) 81.0 % High 47-70 [facility] Comment on above: Performed By: #### L 100.0100, L500.2500 ####[facility] [address] [place], [address] Nucleated RBC (Bld) [#/Vol] 0 10*3/uL Normal 0-5 [facility] Comment on above: Performed By: #### L 100.0100, L500.2500 ####[facility] [address] [place], [address] Platelet mean volume (Bld) [Entitic vol] 10.0 fL Normal 6.2-12.0 [facility] Comment on above: Performed By: #### L 100.0100, L500.2500 ####[facility] [address] [place], [address] Platelets (Bld) [#/Vol] 125 10*3/uL Low 150-450 [facility] Comment on above: Performed By: #### L 100.0100, L500.2500 ####[facility] [address] [place], [address] RBC (Bld) [#/Vol] 3.28 10*6/uL Low 4.2-5.4 [facility] Comment on above: Performed By: #### L 100.0100, L500.2500 ####[facility] [address] [place], [address] RDW SD 63.1 fl High 35.1-43.9 [facility] Comment on above: Performed By: #### L 100.0100, L500.2500 ####[facility] [address] [place], [address] WBC (Bld) [#/Vol] 7.0 10*3/uL Normal 4.4-11.0 [facility] Comment on above: Performed By: #### L 100.0100, L500.2500 ####[facility] [address] [place], [address] Glucoseon 08-10-2024 Glucose [Mass/Vol] 139 mg/dL High 70-99 [facility] Comment on above: Performed By: #### L 501.0100 ####[facility] [address] [place], [address] Glucose [Mass/Vol] 135 mg/dL High 70-99 [facility] Comment on above: Performed By: #### L 501.0100 ####[facility] [address] [place], [address] Basic Metabolic Profile (BMP )on 08-09-2024 BUN/CRE 20.7 RATIO High 10-20 [facility] Comment on above: Performed By: #### L 100.0100, L500.2500 ####[facility] [address] [place], [address] Calcium [Mass/Vol] 7.4 mg/dL Low 7.6-11.0 [facility] Comment on above: Performed By: #### L 100.0100, L500.2500 ####[facility] [address] [place], [address] Chloride [Moles/Vol] 105 mmol/L Normal 98-108 [facility] Comment on above: Performed By: #### L 100.0100, L500.2500 ####[facility] [address] [place], [address] CO2 [Moles/Vol] 20.7 mmol/L Low 21.0-32.0 [facility] Comment on above: Performed By: #### L 100.0100, L500.2500 ####[facility] [address] [place], [address] Creatinine [Mass/Vol] 1.43 mg/dL High 0.70-1.20 [facility] Comment on above: Performed By: #### L 100.0100, L500.2500 ####[facility] [address] [place], [address] ECRCL 27.63 ml/min Low 50-250 [facility] Comment on above: Performed By: #### L 100.0100, L500.2500 ####[facility] [address] [place], [address] GAP 9 Normal 5-15 [facility] Comment on above: Performed By: #### L 100.0100, L500.2500 ####[facility] [address] [place], [address] GFR/1.73 sq M.predicted among non-blacks MDRD (S/P/Bld) [Vol rate/Area] 41 mL/min/{1.73_m2} Low >60 [facility] Comment on above: Result Comment: mL/m in/1.73m2 CKD-EPI Creatinine Equation (2020) Performed By: #### L 100.0100, L500.2500 ####[facility] [address] [place], [address] Glucose [Mass/Vol] 83 mg/dL Normal 70-99 [facility] Comment on above: Performed By: #### L 100.0100, L500.2500 ####[facility] [address] [place], [address] Potassium [Moles/Vol] 3.9 mmol/L Normal 3.3-5.1 [facility] Comment on above: Performed By: #### L 100.0100, L500.2500 ####[facility] [address] [place], [address] Sodium [Moles/Vol] 134 mmol/L Normal 133-145 [facility] Comment on above: Performed By: #### L 100.0100, L500.2500 ####[facility] [address], [address] Urea nitrogen [Mass/Vol] 30 mg/dL High 4-19 [facility] Comment on above: Performed By: #### L 100.0100, L500.2500 ####[facility] [address], [address] Bedside Glucoseon 08-09-2024 FINGERSTICK GLU 77 mg/dL Normal 74-106 [facility] Comment on above: Result Comment: LUIZA DIAZ OF PATIENT CARE PER NURSING PROTOCOL Performed By: #### L 501.080 ####[facility] [address] [place], [address] CBC W/Diff, Automatedon 07-27 Absolute Lymph 0.38 X10 3/uL Low 0.83-4.51 [facility] Comment on above: Performed By: #### L 100.0100, L500.2500 ####[facility] [address] [place], [address] Absolute Neut 5.4 X10 3/uL Normal 2.0-7.7 [facility] Comment on above: Performed By: #### L 100.0100, L500.2500 ####[facility] [address] [place], [address] Basophils/100 WBC (Bld) 0.8 % Normal 0-1 [facility] Comment on above: Performed By: #### L 100.0100, L500.2500 ####[facility] [address] [place], [address] Eosinophils/100 WBC (Bld) 1.9 % Normal 0-5 [facility] Comment on above: Performed By: #### L 100.0100, L500.2500 ####[facility] [address] [place], [address] Erythrocyte distribution width (RBC) [Ratio] 18.8 % High 11.6-14.6 [facility] Comment on above: Performed By: #### L 100.0100, L500.2500 ####[facility] [address] [place], [address] Hematocrit (Bld) [Volume fraction] 27.4 % Low 37-47 [facility] Comment on above: Performed By: #### L 100.0100, L500.2500 ####[facility] [address] [place], [address] Hemoglobin (Bld) [Mass/Vol] 8.3 g/dL Low 12.0-15.0 [facility] Comment on above: Performed By: #### L 100.0100, L500.2500 ####[facility] [address] [place], [address] IG% 2.000 High 0.0-0.9 [facility] Comment on above: Result Comment: IG% - Immature Granulocytes (promyelocytes, myelocytes andmetamyelocytes) > 1% indicates that a LEFT SHIFT is Present. Performed By: #### L 100.0100, L500.2500 ####[facility] [address] [place], [address] Lymphocytes/100 WBC (Bld) 6.0 % Low 19-41 [facility] Comment on above: Performed By: #### L 100.0100, L500.2500 ####[facility] [address] [place], [address] MCH (RBC) [Entitic mass] 26.7 pg Low 27.0-32.0 [facility] Comment on above: Performed By: #### L 100.0100, L500.2500 ####[facility] [address] [place], [address] MCHC (RBC) [Mass/Vol] 30.3 g/dL Low 32-36 [facility] Comment on above: Performed By: #### L 100.0100, L500.2500 ####[facility] [address] [place], [address] MCV (RBC) [Entitic vol] 88.1 fL Normal 81-99 [facility] Comment on above: Performed By: #### L 100.0100, L500.2500 ####[facility] [address] [place], [address] Monocytes/100 WBC (Bld) 5.0 % Normal 0-10 [facility] Comment on above: Performed By: #### L 100.0100, L500.2500 ####[facility] [address] [place], [address] Neutrophils/100 WBC (Bld) 84.3 % High 47-70 [facility] Comment on above: Performed By: #### L 100.0100, L500.2500 ####[facility] [address] [place], [address] Nucleated RBC (Bld) [#/Vol] 0 10*3/uL Normal 0-5 [facility] Comment on above: Performed By: #### L 100.0100, L500.2500 ####[facility] [address] [place], [address] Platelet mean volume (Bld) [Entitic vol] 10.3 fL Normal 6.2-12.0 [facility] Comment on above: Performed By: #### L 100.0100, L500.2500 ####[facility] [address] [place], [address] Platelets (Bld) [#/Vol] 111 10*3/uL Low 150-450 [facility] Comment on above: Performed By: #### L 100.0100, L500.2500 ####[facility] [address] [place], [address] RBC (Bld) [#/Vol] 3.11 10*6/uL Low 4.2-5.4 [facility] Comment on above: Performed By: #### L 100.0100, L500.2500 ####[facility] [address] [place], [address] RDW SD 60.7 fl High 35.1-43.9 [facility] Comment on above: Performed By: #### L 100.0100, L500.2500 ####[facility] [address] [place], [address] WBC (Bld) [#/Vol] 6.4 10*3/uL Normal 4.4-11.0 [facility] Comment on above: Performed By: #### L 100.0100, L500.2500 ####[facility] [address] [place], [address] Glucoseon 08-09-2024 Glucose [Mass/Vol] 108 mg/dL High 70-99 [facility] Comment on above: Order Comment: Comme nts: blood sugar monitoring, poor peripheral perfusion Performed By: #### L 501.0100 ####[facility] [address] [place], [address] Glucose [Mass/Vol] 100 mg/dL High 70- [facility] Comment on above: Order Comment: Comme nts: Glucose mon q6h, poor perfusion for finger stick Performed By: #### L 501.0100 ####[facility] [address] [place], [address] Abdomen/Pelvis WITH Contrast on 08-08-2024 Abdomen/Pelvis WITH Contrast Normal [facility] Basic Metabolic Profile (BMP )on 08-08-2024 BUN/CRE 24.5 RATIO High 10-20 [facility] Comment on above: Performed By: #### L 100.0100, L500.2500 ####[facility] [address] [place], [address] Calcium [Mass/Vol] 7.7 mg/dL Normal 7.6-11.0 [facility] Comment on above: Performed By: #### L 100.0100, L500.2500 ####[facility] [address] [place], [address] Chloride [Moles/Vol] 104 mmol/L Normal 98-108 [facility] Comment on above: Performed By: #### L 100.0100, L500.2500 ####[facility] [address] [place], [address] CO2 [Moles/Vol] 22.6 mmol/L Normal 21.0-32.0 [facility] Comment on above: Performed By: #### L 100.0100, L500.2500 ####[facility] [address] [place], [address] Creatinine [Mass/Vol] 1.31 mg/dL High 0.70-1.20 [facility] Comment on above: Performed By: #### L 100.0100, L500.2500 ####[facility] [address] [place], [address] ECRCL 30.16 ml/min Low 50-250 [facility] Comment on above: Performed By: #### L 100.0100, L500.2500 ####[facility] [address] [place], [address] GAP 9 Normal 5-15 [facility] Comment on above: Performed By: #### L 100.0100, L500.2500 ####[facility] [address] [place], [address] GFR/1.73 sq M.predicted among non-blacks MDRD (S/P/Bld) [Vol rate/Area] 46 mL/min/{1.73_m2} Low >60 [facility] Comment on above: Result Comment: mL/m in/1.73m2 CKD-EPI Creatinine Equation (2020) Performed By: #### L 100.0100, L500.2500 ####[facility] [address] [place], [address] Glucose [Mass/Vol] 89 mg/dL Normal 70-99 [facility] Comment on above: Performed By: #### L 100.0100, L500.2500 ####[facility] [address] [place], [address] Potassium [Moles/Vol] 3.8 mmol/L Normal 3.3-5.1 [facility] Comment on above: Performed By: #### L 100.0100, L500.2500 ####[facility] [address] [place], [address] Sodium [Moles/Vol] 135 mmol/L Normal 133-145 [facility] Comment on above: Performed By: #### L 100.0100, L500.2500 ####[facility] [address] [place], [address] Urea nitrogen [Mass/Vol] 32 mg/dL High 4-19 [facility] Comment on above: Performed By: #### L 100.0100, L500.2500 ####[facility] [address] [place], [address] Bedside Glucoseon 08-08-2024 FINGERSTICK GLU 84 mg/dL Normal 74-106 [facility] Comment on above: Result Comment: LUIZA GEMENT OF PATIENT CARE PER NURSING PROTOCOL Performed By: #### L 501.080 ####[facility] [address] [place], [address] FINGERSTICK GLU 136 mg/dL High 74-106 [facility] Comment on above: Result Comment: LUIZA GEMENT OF PATIENT CARE PER NURSING PROTOCOL Performed By: #### L 501.080 ####[facility] [address] [place], [address] FINGERSTICK GLU 53 mg/dL Low 74-106 [facility] Comment on above: Result Comment: LUIZA GEMENT OF PATIENT CARE PER NURSING PROTOCOL Performed By: #### L 501.080 ####[facility] [address] [place], [address] FINGERSTICK GLU 55 mg/dL Low 74-106 [facility] Comment on above: Result Comment: LUIZA DIAZ OF PATIENT CARE PER NURSING PROTOCOL Performed By: #### L 501.080 ####[facility] [address] [place], [address] CBC W/Diff, Automatedon 07-27 Absolute Lymph 0.67 X10 3/uL Low 0.83-4.51 [facility] Comment on above: Performed By: #### L 100.0100, L500.2500 ####[facility] [address] [place], [address] Absolute Neut 7.2 X10 3/uL Normal 2.0-7.7 [facility] Comment on above: Performed By: #### L 100.0100, L500.2500 ####[facility] [address] [place], [address] Basophils/100 WBC (Bld) 0.6 % Normal 0-1 [facility] Comment on above: Performed By: #### L 100.0100, L500.2500 ####[facility] [address] [place], [address] Eosinophils/100 WBC (Bld) 1.2 % Normal 0-5 [facility] Comment on above: Performed By: #### L 100.0100, L500.2500 ####[facility] [address] [place], [address] Erythrocyte distribution width (RBC) [Ratio] 18.6 % High 11.6-14.6 [facility] Comment on above: Performed By: #### L 100.0100, L500.2500 ####[facility] [address] [place], [address] Hematocrit (Bld) [Volume fraction] 27.8 % Low 37-47 [facility] Comment on above: Performed By: #### L 100.0100, L500.2500 ####[facility] [address] [place], [address] Hemoglobin (Bld) [Mass/Vol] 8.6 g/dL Low 12.0-15.0 [facility] Comment on above: Performed By: #### L 100.0100, L500.2500 ####[facility] [address] [place], [address] IG% 1.400 High 0.0-0.9 [facility] Comment on above: Result Comment: IG% - Immature Granulocytes (promyelocytes, myelocytes andmetamyelocytes) > 1% indicates that a LEFT SHIFT is Present. Performed By: #### L 100.0100, L500.2500 ####[facility] [address] [place], [address] Lymphocytes/100 WBC (Bld) 7.9 % Low 19-41 [facility] Comment on above: Performed By: #### L 100.0100, L500.2500 ####[facility] [address] [place], [address] MCH (RBC) [Entitic mass] 27.1 pg Normal 27.0-32.0 [facility] Comment on above: Performed By: #### L 100.0100, L500.2500 ####[facility] [address] [place], [address] MCHC (RBC) [Mass/Vol] 30.9 g/dL Low 32-36 [facility] Comment on above: Performed By: #### L 100.0100, L500.2500 ####[facility] [address] [place], [address] MCV (RBC) [Entitic vol] 87.7 fL Normal 81-99 [facility] Comment on above: Performed By: #### L 100.0100, L500.2500 ####[facility] [address] [place], [address] Monocytes/100 WBC (Bld) 3.8 % Normal 0-10 [facility] Comment on above: Performed By: #### L 100.0100, L500.2500 ####[facility] [address] [place], [address] Neutrophils/100 WBC (Bld) 85.1 % High 47-70 [facility] Comment on above: Performed By: #### L 100.0100, L500.2500 ####[facility] [address] [place], [address] Nucleated RBC (Bld) [#/Vol] 0 10*3/uL Normal 0-5 [facility] Comment on above: Performed By: #### L 100.0100, L500.2500 ####[facility] [address] [place], [address] Platelet mean volume (Bld) [Entitic vol] 9.5 fL Normal 6.2-12.0 [facility] Comment on above: Performed By: #### L 100.0100, L500.2500 ####[facility] [address] [place], [address] Platelets (Bld) [#/Vol] 147 10*3/uL Low 150-450 [facility] Comment on above: Performed By: #### L 100.0100, L500.2500 ####[facility] [address] [place], [address] RBC (Bld) [#/Vol] 3.17 10*6/uL Low 4.2-5.4 [facility] Comment on above: Performed By: #### L 100.0100, L500.2500 ####[facility] [address] [place], [address] RDW SD 59.1 fl High 35.1-43.9 [facility] Comment on above: Performed By: #### L 100.0100, L500.2500 ####[facility] [address] [place], [address] WBC (Bld) [#/Vol] 8.5 10*3/uL Normal 4.4-11.0 [facility] Comment on above: Performed By: #### L 100.0100, L500.2500 ####[facility] [address] [place], [address] L3410.9998on 08-08-2024 [facility] Misc. COMMENT Normal . [facility] Comment on above: Order Comment: SERUM /[id number] C Result Comment: Test Ordered: [id number] Cystatin CCystatin C 2.88 [H ] mg/L CB Reference Range: 0.72-1.16Performed at: - [facility] [place] [id number] Director: Manjinder Babb PhD, Phone: [phone] Performed By: #### L 3410.9998 ####[facility] [address] [place], [address] Basic Metabolic Profile (BMP )on 08-07-2024 BUN/CRE 29.1 RATIO High 10-20 [facility] Comment on above: Performed By: #### L 100.0100, L500.2500 ####[facility] [address] [place], [address] Calcium [Mass/Vol] 7.5 mg/dL Low 7.6-11.0 [facility] Comment on above: Performed By: #### L 100.0100, L500.2500 ####[facility] [address] [place], [address] Chloride [Moles/Vol] 103 mmol/L Normal 98-108 [facility] Comment on above: Performed By: #### L 100.0100, L500.2500 ####[facility] [address] [place], [address] CO2 [Moles/Vol] 19.3 mmol/L Low 21.0-32.0 [facility] Comment on above: Performed By: #### L 100.0100, L500.2500 ####[facility] [address] [place], [address] Creatinine [Mass/Vol] 1.50 mg/dL High 0.70-1.20 [facility] Comment on above: Performed By: #### L 100.0100, L500.2500 ####[facility] [address] [place], [address] ECRCL 27.32 ml/min Low 50-250 [facility] Comment on above: Performed By: #### L 100.0100, L500.2500 ####[facility] [address] [place], [address] GAP 11 Normal 5-15 [facility] Comment on above: Performed By: #### L 100.0100, L500.2500 ####[facility] [address] [place], [address] GFR/1.73 sq M.predicted among non-blacks MDRD (S/P/Bld) [Vol rate/Area] 39 mL/min/{1.73_m2} Low >60 [facility] Comment on above: Result Comment: mL/m in/1.73m2 CKD-EPI Creatinine Equation (2020) Performed By: #### L 100.0100, L500.2500 ####[facility] [address] [place], [address] Glucose [Mass/Vol] 84 mg/dL Normal 70-99 [facility] Comment on above: Performed By: #### L 100.0100, L500.2500 ####[facility] [address] [place], [address] Potassium [Moles/Vol] 3.7 mmol/L Normal 3.3-5.1 [facility] Comment on above: Performed By: #### L 100.0100, L500.2500 ####[facility] [address] [place], [address] Sodium [Moles/Vol] 133 mmol/L Normal 133-145 [facility] Comment on above: Performed By: #### L 100.0100, L500.2500 ####[facility] [address] [place], [address] Urea nitrogen [Mass/Vol] 44 mg/dL High 4-19 [facility] Comment on above: Performed By: #### L 100.0100, L500.2500 ####[facility] [address] [place], [address] Bedside Glucoseon 08-07-2024 FINGERSTICK GLU 130 mg/dL High 74-106 [facility] Comment on above: Result Comment: LUIZA GEMENT OF PATIENT CARE PER NURSING PROTOCOL Performed By: #### L 501.080 ####[facility] [address] [place], [address] FINGERSTICK GLU 95 mg/dL Normal 74-106 [facility] Comment on above: Result Comment: LUIZA GEMENT OF PATIENT CARE PER NURSING PROTOCOL Performed By: #### L 501.080 ####[facility] [address] [place], [address] FINGERSTICK GLU 76 mg/dL Normal 74-106 [facility] Comment on above: Result Comment: LUIZA GEMENT OF PATIENT CARE PER NURSING PROTOCOL Performed By: #### L 501.080 ####[facility] [address], [address] FINGERSTICK GLU 79 mg/dL Normal 74-106 [facility] Comment on above: Result Comment: LUIZA GEMENT OF PATIENT CARE PER NURSING PROTOCOL Performed By: #### L 501.080 ####[facility] [address] [place], [address] CBC W/Diff, Automatedon 07-27 Absolute Lymph 0.82 X10 3/uL Low 0.83-4.51 [facility] Comment on above: Performed By: #### L 100.0100, L500.2500 ####[facility] [address] [place], [address] Absolute Neut 9.6 X10 3/uL High 2.0-7.7 [facility] Comment on above: Performed By: #### L 100.0100, L500.2500 ####[facility] [address] [place], [address] Basophils/100 WBC (Bld) 0.5 % Normal 0-1 [facility] Comment on above: Performed By: #### L 100.0100, L500.2500 ####[facility] [address] [place], [address] Eosinophils/100 WBC (Bld) 1.3 % Normal 0-5 [facility] Comment on above: Performed By: #### L 100.0100, L500.2500 ####[facility] [address] [place], [address] Erythrocyte distribution width (RBC) [Ratio] 18.6 % High 11.6-14.6 [facility] Comment on above: Performed By: #### L 100.0100, L500.2500 ####[facility] [address] [place], [address] Hematocrit (Bld) [Volume fraction] 29.4 % Low 37-47 [facility] Comment on above: Performed By: #### L 100.0100, L500.2500 ####[facility] [address] [place], [address] Hemoglobin (Bld) [Mass/Vol] 9.1 g/dL Low 12.0-15.0 [facility] Comment on above: Performed By: #### L 100.0100, L500.2500 ####[facility] [address] [place], [address] IG% 2.100 High 0.0-0.9 [facility] Comment on above: Result Comment: IG% - Immature Granulocytes (promyelocytes, myelocytes andmetamyelocytes) > 1% indicates that a LEFT SHIFT is Present. Performed By: #### L 100.0100, L500.2500 ####[facility] [address] [place], [address] Lymphocytes/100 WBC (Bld) 7.3 % Low 19-41 [facility] Comment on above: Performed By: #### L 100.0100, L500.2500 ####[facility] [address] [place], [address] MCH (RBC) [Entitic mass] 27.1 pg Normal 27.0-32.0 [facility] Comment on above: Performed By: #### L 100.0100, L500.2500 ####[facility] [address] [place], [address] MCHC (RBC) [Mass/Vol] 31.0 g/dL Low 32-36 [facility] Comment on above: Performed By: #### L 100.0100, L500.2500 ####[facility] [address] [place], [address] MCV (RBC) [Entitic vol] 87.5 fL Normal 81-99 [facility] Comment on above: Performed By: #### L 100.0100, L500.2500 ####[facility] [address] [place], [address] Monocytes/100 WBC (Bld) 3.5 % Normal 0-10 [facility] Comment on above: Performed By: #### L 100.0100, L500.2500 ####[facility] [address] [place], [address] Neutrophils/100 WBC (Bld) 85.3 % High 47-70 [facility] Comment on above: Performed By: #### L 100.0100, L500.2500 ####[facility] [address] [place], [address] Nucleated RBC (Bld) [#/Vol] 0 10*3/uL Normal 0-5 [facility] Comment on above: Performed By: #### L 100.0100, L500.2500 ####[facility] [address] [place], [address] Platelet mean volume (Bld) [Entitic vol] 9.8 fL Normal 6.2-12.0 [facility] Comment on above: Performed By: #### L 100.0100, L500.2500 ####[facility] [address], [address] Platelets (Bld) [#/Vol] 163 10*3/uL Normal 150-450 [facility] Comment on above: Performed By: #### L 100.0100, L500.2500 ####[facility] [address] [place], [address] RBC (Bld) [#/Vol] 3.36 10*6/uL Low 4.2-5.4 [facility] Comment on above: Performed By: #### L 100.0100, L500.2500 ####[facility] [address] [place], [address] RDW SD 57.8 fl High 35.1-43.9 [facility] Comment on above: Performed By: #### L 100.0100, L500.2500 ####[facility] [address] [place], [address] WBC (Bld) [#/Vol] 11.2 10*3/uL High 4.4-11.0 [facility] Comment on above: Performed By: #### L 100.0100, L500.2500 ####[facility] [address] [place], [address] CDIFF (PCR)on 08-07-2024 CDIFF Normal [facility] Comment on above: Performed By: #### M 100.6796, M100.6795 ####[facility] [address] [place], [address] Clostridium Diff Toxin/Agon 08-07-2024 CDIFF (EIA) Normal [facility] Comment on above: Performed By: #### M 100.6796, M100.6795 ####[facility] [address] [place], [address] Clostridium difficile detect ion by polymerase chain reactionOrdered By: Judd Galvin on 08-07-2024 C. difficile DNA MOISES+probe Ql (Unsp spec) [facility] Glucoseon 08-07-2024 Glucose [Mass/Vol] 127 mg/dL High 70-99 [facility] [facility] Comment on above: Order Comment: Comme nts: hypoglycemia Performed By: #### L 501.0100 ####[facility] [address] [place], [address] Stool Clostridium difficile detectionOrdered By: Judd Galvin on 08-07-2024 C. difficile Ql (Stl) [facility] Abdomen/Pelvis WITH Contrast on 08-06-2024 Abdomen/Pelvis WITH Contrast Normal [facility] Basic Metabolic Profile (BMP )on 08-06-2024 BUN/CRE 29.8 RATIO High 10-20 [facility] Comment on above: Performed By: #### L 100.0100, L500.2500 ####[facility] [address] [place], [address] Calcium [Mass/Vol] 7.5 mg/dL Low 7.6-11.0 [facility] Comment on above: Performed By: #### L 100.0100, L500.2500 ####[facility] [address] [place], [address] Chloride [Moles/Vol] 102 mmol/L Normal 98-108 [facility] Comment on above: Performed By: #### L 100.0100, L500.2500 ####[facility] [address] [place], [address] CO2 [Moles/Vol] 21.2 mmol/L Normal 21.0-32.0 [facility] Comment on above: Performed By: #### L 100.0100, L500.2500 ####[facility] [address] [place], [address] Creatinine [Mass/Vol] 1.27 mg/dL High 0.70-1.20 [facility] Comment on above: Performed By: #### L 100.0100, L500.2500 ####[facility] [address] [place], [address] ECRCL 32.27 ml/min Low 50-250 [facility] Comment on above: Performed By: #### L 100.0100, L500.2500 ####[facility] [address] [place], [address] GAP 10 Normal 5-15 [facility] Comment on above: Performed By: #### L 100.0100, L500.2500 ####[facility] [address] [place], [address] GFR/1.73 sq M.predicted among non-blacks MDRD (S/P/Bld) [Vol rate/Area] 48 mL/min/{1.73_m2} Low >60 [facility] Comment on above: Result Comment: mL/m in/1.73m2 CKD-EPI Creatinine Equation (2020) Performed By: #### L 100.0100, L500.2500 ####[facility] [address] [place], [address] Glucose [Mass/Vol] 94 mg/dL Normal 70-99 [facility] Comment on above: Performed By: #### L 100.0100, L500.2500 ####[facility] [address] [place], [address] Potassium [Moles/Vol] 3.7 mmol/L Normal 3.3-5.1 [facility] Comment on above: Performed By: #### L 100.0100, L500.2500 ####[facility] [address] [place], [address] Sodium [Moles/Vol] 133 mmol/L Normal 133-145 [facility] Comment on above: Performed By: #### L 100.0100, L500.2500 ####[facility] [address] [place], [address] Urea nitrogen [Mass/Vol] 38 mg/dL High 4-19 [facility] Comment on above: Performed By: #### L 100.0100, L500.2500 ####[facility] [address] [place], [address] BUN Normal 4-19 [facility] Comment on above: Result Comment: Canc elled via OM: Order cancelled - Patient discharged Performed By: #### L 100.0100, L500.2500 ####[facility] [address] [place], [address] BUN/CRE Normal 10-20 [facility] Comment on above: Result Comment: Canc elled via OM: Order cancelled - Patient discharged Performed By: #### L 100.0100, L500.2500 ####[facility] [address] [place], [address] Calcium Normal 7.6-11.0 [facility] Comment on above: Result Comment: Canc elled via OM: Order cancelled - Patient discharged Performed By: #### L 100.0100, L500.2500 ####[facility] [address], [address] CL Normal 98-107 [facility] Comment on above: Result Comment: Canc elled via OM: Order cancelled - Patient discharged Performed By: #### L 100.0100, L500.2500 ####[facility] [address] [place], [address] CO2 Normal 21.0-32.0 [facility] Comment on above: Result Comment: Canc elled via OM: Order cancelled - Patient discharged Performed By: #### L 100.0100, L500.2500 ####[facility] [address] [place], [address] CREAT,SERUM Normal 0.70-1.20 [facility] Comment on above: Result Comment: Canc elled via OM: Order cancelled - Patient discharged Performed By: #### L 100.0100, L500.2500 ####[facility] [address] [place], [address] eGFR Normal >60 [facility] Comment on above: Result Comment: Canc elled via OM: Order cancelled - Patient discharged Performed By: #### L 100.0100, L500.2500 ####[facility] [address] [place], [address] GAP Normal 5-15 [facility] Comment on above: Result Comment: Canc elled via OM: Order cancelled - Patient discharged Performed By: #### L 100.0100, L500.2500 ####[facility] [address] [place], [address] GLU Normal 70-99 [facility] Comment on above: Result Comment: Canc elled via OM: Order cancelled - Patient discharged Performed By: #### L 100.0100, L500.2500 ####[facility] [address] [place], [address] Potassium Normal 3.5-5.1 [facility] Comment on above: Result Comment: Canc elled via OM: Order cancelled - Patient discharged Performed By: #### L 100.0100, L500.2500 ####[facility] [address] [place], [address] Basic Metabolic Profile (BMP) Normal 136-145 [facility] Comment on above: Result Comment: Canc elled via OM: Order cancelled - Patient discharged Performed By: #### L 100.0100, L500.2500 ####[facility] [address] [place], [address] Bedside Glucoseon 08-06-2024 FINGERSTICK GLU 108 mg/dL High 74-106 [facility] Comment on above: Result Comment: LUIZA GEMENT OF PATIENT CARE PER NURSING PROTOCOL Performed By: #### L 501.080 ####[facility] [address] [place], [address] FINGERSTICK GLU 77 mg/dL Normal 74-106 [facility] Comment on above: Result Comment: LUIZA GEMENT OF PATIENT CARE PER NURSING PROTOCOL Performed By: #### L 501.080 ####[facility] [address] [place], [address] FINGERSTICK GLU 73 mg/dL Low 74-106 [facility] Comment on above: Result Comment: LUIZA GEMENT OF PATIENT CARE PER NURSING PROTOCOL Performed By: #### L 501.080 ####[facility] [address] [place], [address] FINGERSTICK GLU 71 mg/dL Low 74-106 [facility] Comment on above: Result Comment: LUIZA GEMENT OF PATIENT CARE PER NURSING PROTOCOL Performed By: #### L 501.080 ####[facility] [address] [place], [address] FINGERSTICK GLU 93 mg/dL Normal 74-106 [facility] Comment on above: Result Comment: LUIZA GEMENT OF PATIENT CARE PER NURSING PROTOCOL Performed By: #### L 501.080 ####[facility] [address] [place], [address] FINGERSTICK GLU 74 mg/dL Normal 74-106 [facility] Comment on above: Result Comment: LUIZA GEMENT OF PATIENT CARE PER NURSING PROTOCOL Performed By: #### L 501.080 ####[facility] [address] [place], [address] CBC W/Diff, Automatedon - Absolute Neut Normal 2.0-7.7 [facility] Comment on above: Result Comment: Canc elled via OM: Order cancelled - Patient discharged Performed By: #### L 100.0100, L500.2500 ####[facility] [address] [place], [address] HCT Normal 37-47 [facility] Comment on above: Result Comment: Canc elled via OM: Order cancelled - Patient discharged Performed By: #### L 100.0100, L500.2500 ####[facility] [address] [place], [address] HGB Normal 12.0-15.0 [facility] Comment on above: Result Comment: Canc elled via OM: Order cancelled - Patient discharged Performed By: #### L 100.0100, L500.2500 ####[facility] [address] [place], [address] MCH Normal 27.0-32.0 [facility] Comment on above: Result Comment: Canc elled via OM: Order cancelled - Patient discharged Performed By: #### L 100.0100, L500.2500 ####[facility] [address] [place], [address] MCHC Normal 32-36 [facility] Comment on above: Result Comment: Canc elled via OM: Order cancelled - Patient discharged Performed By: #### L 100.0100, L500.2500 ####[facility] [address] [place], [address] MCV Normal 81-99 [facility] Comment on above: Result Comment: Canc elled via OM: Order cancelled - Patient discharged Performed By: #### L 100.0100, L500.2500 ####[facility] [address] [place], [address] NEUT% Normal 47-70 [facility] Comment on above: Result Comment: Canc elled via OM: Order cancelled - Patient discharged Performed By: #### L 100.0100, L500.2500 ####[facility] [address], [address] PLT Normal 150-450 [facility] Comment on above: Result Comment: Canc elled via OM: Order cancelled - Patient discharged Performed By: #### L 100.0100, L500.2500 ####[facility] [address] [place], [address] RBC Normal 4.2-5.4 [facility] Comment on above: Result Comment: Canc elled via OM: Order cancelled - Patient discharged Performed By: #### L 100.0100, L500.2500 ####[facility] [address] [place], [address] RDW CV Normal 11.6-14.6 [facility] Comment on above: Result Comment: Canc elled via OM: Order cancelled - Patient discharged Performed By: #### L 100.0100, L500.2500 ####[facility] [address] [place], [address] RDW SD Normal 35.1-43.9 [facility] Comment on above: Result Comment: Canc elled via OM: Order cancelled - Patient discharged Performed By: #### L 100.0100, L500.2500 ####[facility] [address] [place], [address] WBC Normal 4.4-11.0 [facility] Comment on above: Result Comment: Canc elled via OM: Order cancelled - Patient discharged Performed By: #### L 100.0100, L500.2500 ####[facility] [address] [place], [address] Absolute Lymph 1.00 X10 3/uL Normal 0.83-4.51 [facility] Comment on above: Performed By: #### L 100.0100, L500.2500 ####[facility] [address] [place], [address] Absolute Neut 6.5 X10 3/uL Normal 2.0-7.7 [facility] Comment on above: Performed By: #### L 100.0100, L500.2500 ####[facility] [address] [place], [address] Basophils/100 WBC (Bld) 0.9 % Normal 0-1 [facility] Comment on above: Performed By: #### L 100.0100, L500.2500 ####[facility] [address] [place], [address] Eosinophils/100 WBC (Bld) 1.5 % Normal 0-5 [facility] Comment on above: Performed By: #### L 100.0100, L500.2500 ####[facility] [address] [place], [address] Erythrocyte distribution width (RBC) [Ratio] 17.7 % High 11.6-14.6 [facility] Comment on above: Performed By: #### L 100.0100, L500.2500 ####[facility] [address] [place], [address] Hematocrit (Bld) [Volume fraction] 26.8 % Low 37-47 [facility] Comment on above: Performed By: #### L 100.0100, L500.2500 ####[facility] [address] [place], [address] Hemoglobin (Bld) [Mass/Vol] 8.2 g/dL Low 12.0-15.0 [facility] Comment on above: Performed By: #### L 100.0100, L500.2500 ####[facility] [address] [place], [address] IG% 2.600 High 0.0-0.9 [facility] Comment on above: Result Comment: IG% - Immature Granulocytes (promyelocytes, myelocytes andmetamyelocytes) > 1% indicates that a LEFT SHIFT is Present. Performed By: #### L 100.0100, L500.2500 ####[facility] [address] [place], [address] Lymphocytes/100 WBC (Bld) 12.2 % Low 19-41 [facility] Comment on above: Performed By: #### L 100.0100, L500.2500 ####[facility] [address] [place], [address] MCH (RBC) [Entitic mass] 27.0 pg Normal 27.0-32.0 [facility] Comment on above: Performed By: #### L 100.0100, L500.2500 ####[facility] [address] [place], [address] MCHC (RBC) [Mass/Vol] 30.6 g/dL Low 32-36 [facility] Comment on above: Performed By: #### L 100.0100, L500.2500 ####[facility] [address] [place], [address] MCV (RBC) [Entitic vol] 88.2 fL Normal 81-99 [facility] Comment on above: Performed By: #### L 100.0100, L500.2500 ####[facility] [address] [place], [address] Monocytes/100 WBC (Bld) 3.8 % Normal 0-10 [facility] Comment on above: Performed By: #### L 100.0100, L500.2500 ####[facility] [address] [place], [address] Neutrophils/100 WBC (Bld) 79.0 % High 47-70 [facility] Comment on above: Performed By: #### L 100.0100, L500.2500 ####[facility] [address] [place], [address] Nucleated RBC (Bld) [#/Vol] 0 10*3/uL Normal 0-5 [facility] Comment on above: Performed By: #### L 100.0100, L500.2500 ####[facility] [address] [place], [address] Platelet mean volume (Bld) [Entitic vol] 9.3 fL Normal 6.2-12.0 [facility] Comment on above: Performed By: #### L 100.0100, L500.2500 ####[facility] [address] [place], [address] Platelets (Bld) [#/Vol] 167 10*3/uL Normal 150-450 [facility] Comment on above: Performed By: #### L 100.0100, L500.2500 ####[facility] [address] [place], [address] RBC (Bld) [#/Vol] 3.04 10*6/uL Low 4.2-5.4 [facility] Comment on above: Performed By: #### L 100.0100, L500.2500 ####[facility] [address] [place], [address] RDW SD 56.7 fl High 35.1-43.9 [facility] Comment on above: Performed By: #### L 100.0100, L500.2500 ####[facility] [address] [place], [address] WBC (Bld) [#/Vol] 8.2 10*3/uL Normal 4.4-11.0 [facility] Comment on above: Performed By: #### L 100.0100, L500.2500 ####[facility] [address] [place], [address] Basic Metabolic Profile (BMP )on 08-05-2024 BUN/CRE 32.7 RATIO High 10-20 [facility] Comment on above: Performed By: #### L 100.0100, L500.2500 ####[facility] [address] [place], [address] Calcium [Mass/Vol] 7.9 mg/dL Normal 7.6-11.0 [facility] Comment on above: Performed By: #### L 100.0100, L500.2500 ####[facility] [address] [place], [address] Chloride [Moles/Vol] 102 mmol/L Normal 98-108 [facility] Comment on above: Performed By: #### L 100.0100, L500.2500 ####[facility] [address] [place], [address] CO2 [Moles/Vol] 20.3 mmol/L Low 21.0-32.0 [facility] Comment on above: Performed By: #### L 100.0100, L500.2500 ####[facility] [address] [place], [address] Creatinine [Mass/Vol] 1.69 mg/dL High 0.70-1.20 [facility] Comment on above: Performed By: #### L 100.0100, L500.2500 ####[facility] [address] [place], [address] ECRCL 25.06 ml/min Low 50-250 [facility] Comment on above: Performed By: #### L 100.0100, L500.2500 ####[facility] [address] [place], [address] GAP 12 Normal 5-15 [facility] Comment on above: Performed By: #### L 100.0100, L500.2500 ####[facility] [address] [place], [address] GFR/1.73 sq M.predicted among non-blacks MDRD (S/P/Bld) [Vol rate/Area] 34 mL/min/{1.73_m2} Low >60 [facility] Comment on above: Result Comment: mL/m in/1.73m2 CKD-EPI Creatinine Equation (2020) Performed By: #### L 100.0100, L500.2500 ####[facility] [address] [place], [address] Glucose [Mass/Vol] 81 mg/dL Normal 70-99 [facility] Comment on above: Performed By: #### L 100.0100, L500.2500 ####[facility] [address] [place], [address] Potassium [Moles/Vol] 5.0 mmol/L Normal 3.3-5.1 [facility] Comment on above: Performed By: #### L 100.0100, L500.2500 ####[facility] [address] [place], [address] Sodium [Moles/Vol] 135 mmol/L Normal 133-145 [facility] Comment on above: Performed By: #### L 100.0100, L500.2500 ####[facility] [address], [address] Urea nitrogen [Mass/Vol] 55 mg/dL High 4-19 [facility] Comment on above: Performed By: #### L 100.0100, L500.2500 ####[facility] [address], [address] BUN Normal -19 [facility] Comment on above: Result Comment: Canc elled via OM: Order cancelled - Patient discharged Performed By: #### L 500.2500, L100.0100 ####[facility] [address] [place], [address] BUN/CRE Normal -20 [facility] Comment on above: Result Comment: Canc elled via OM: Order cancelled - Patient discharged Performed By: #### L 500.2500, L100.0100 ####[facility] [address] [place], [address] Calcium Normal 7.6-11.0 [facility] Comment on above: Result Comment: Canc elled via OM: Order cancelled - Patient discharged Performed By: #### L 500.2500, L100.0100 ####[facility] [address] [place], [address] CL Normal 98-107 [facility] Comment on above: Result Comment: Canc elled via OM: Order cancelled - Patient discharged Performed By: #### L 500.2500, L100.0100 ####[facility] [address] [place], [address] CO2 Normal 21.0-32.0 [facility] Comment on above: Result Comment: Canc elled via OM: Order cancelled - Patient discharged Performed By: #### L 500.2500, L100.0100 ####[facility] [address] [place], [address] CREAT,SERUM Normal 0.70-1.20 [facility] Comment on above: Result Comment: Canc elled via OM: Order cancelled - Patient discharged Performed By: #### L 500.2500, L100.0100 ####[facility] [address] [place], [address] eGFR Normal >60 [facility] Comment on above: Result Comment: Canc elled via OM: Order cancelled - Patient discharged Performed By: #### L 500.2500, L100.0100 ####[facility] [address] [place], [address] GAP Normal 5-15 [facility] Comment on above: Result Comment: Canc elled via OM: Order cancelled - Patient discharged Performed By: #### L 500.2500, L100.0100 ####[facility] [address] [place], [address] GLU Normal 70-99 [facility] Comment on above: Result Comment: Canc elled via OM: Order cancelled - Patient discharged Performed By: #### L 500.2500, L100.0100 ####[facility] [address] [place], [address] Potassium Normal 3.5-5.1 [facility] Comment on above: Result Comment: Canc elled via OM: Order cancelled - Patient discharged Performed By: #### L 500.2500, L100.0100 ####[facility] [address] [place], [address] Basic Metabolic Profile (BMP) Normal 136-145 [facility] Comment on above: Result Comment: Canc elled via OM: Order cancelled - Patient discharged Performed By: #### L 500.2500, L100.0100 ####[facility] [address] [place], [address] Bedside Glucoseon 08-05-2024 FINGERSTICK GLU 74 mg/dL Normal 74-106 [facility] Comment on above: Result Comment: LUIZA GEMENT OF PATIENT CARE PER NURSING PROTOCOL Performed By: #### L 501.080 ####[facility] [address] [place], [address] FINGERSTICK GLU 97 mg/dL Normal 74-106 [facility] Comment on above: Result Comment: LUIZA GEMENT OF PATIENT CARE PER NURSING PROTOCOL Performed By: #### L 501.080 ####[facility] [address] [place], [address] FINGERSTICK GLU 102 mg/dL Normal 74-106 [facility] Comment on above: Result Comment: LUIZA GEMENT OF PATIENT CARE PER NURSING PROTOCOL Performed By: #### L 501.080 ####[facility] [address] [place], [address] FINGERSTICK GLU 59 mg/dL Low 74-106 [facility] Comment on above: Result Comment: LUIZA GEMENT OF PATIENT CARE PER NURSING PROTOCOL Performed By: #### L 501.080 ####[facility] [address] [place], [address] FINGERSTICK GLU 72 mg/dL Low 74-106 [facility] Comment on above: Result Comment: LUIZA GEMENT OF PATIENT CARE PER NURSING PROTOCOL Performed By: #### L 501.080 ####[facility] [address] [place], [address] FINGERSTICK GLU 96 mg/dL Normal 74-106 [facility] Comment on above: Result Comment: LUIZA GEMENT OF PATIENT CARE PER NURSING PROTOCOL Performed By: #### L 501.080 ####[facility] [address] [place], [address] FINGERSTICK GLU 66 mg/dL Low 74-106 [facility] Comment on above: Result Comment: LUIZA GEMENT OF PATIENT CARE PER NURSING PROTOCOL Performed By: #### L 501.080 ####[facility] [address] [place], [address] FINGERSTICK GLU 80 mg/dL Normal 74-106 [facility] Comment on above: Result Comment: LUIZA GEMENT OF PATIENT CARE PER NURSING PROTOCOL Performed By: #### L 501.080 ####[facility] [address] [place], [address] FINGERSTICK GLU 95 mg/dL Normal 74-106 [facility] Comment on above: Result Comment: LUIZA GEMENT OF PATIENT CARE PER NURSING PROTOCOL Performed By: #### L 501.080 ####[facility] [address] [place], [address] CBC W/Diff, Automatedon 03- 0-5 Absolute Lymph 1.25 X10 3/uL Normal 0.83-4.51 [facility] Comment on above: Performed By: #### L 100.0100, L500.2500 ####[facility] [address] [place], [address] Absolute Neut 12.9 X10 3/uL High 2.0-7.7 [facility] Comment on above: Performed By: #### L 100.0100, L500.2500 ####[facility] [address] [place], [address] Basophils/100 WBC (Bld) 0.3 % Normal 0-1 [facility] Comment on above: Performed By: #### L 100.0100, L500.2500 ####[facility] [address] [place], [address] Eosinophils/100 WBC (Bld) 0.3 % Normal 0-5 [facility] Comment on above: Performed By: #### L 100.0100, L500.2500 ####[facility] [address] [place], [address] Erythrocyte distribution width (RBC) [Ratio] 17.0 % High 11.6-14.6 [facility] Comment on above: Performed By: #### L 100.0100, L500.2500 ####[facility] [address] [place], [address] Hematocrit (Bld) [Volume fraction] 27.0 % Low 37-47 [facility] Comment on above: Performed By: #### L 100.0100, L500.2500 ####[facility] [address] [place], [address] Hemoglobin (Bld) [Mass/Vol] 8.6 g/dL Low 12.0-15.0 [facility] Comment on above: Performed By: #### L 100.0100, L500.2500 ####[facility] [address] [place], [address] IG% 3.900 High 0.0-0.9 [facility] Comment on above: Result Comment: IG% - Immature Granulocytes (promyelocytes, myelocytes andmetamyelocytes) > 1% indicates that a LEFT SHIFT is Present. Performed By: #### L 100.0100, L500.2500 ####[facility] [address] [place], [address] Lymphocytes/100 WBC (Bld) 8.2 % Low 19-41 [facility] Comment on above: Performed By: #### L 100.0100, L500.2500 ####[facility] [address] [place], [address] MCH (RBC) [Entitic mass] 27.3 pg Normal 27.0-32.0 [facility] Comment on above: Performed By: #### L 100.0100, L500.2500 ####[facility] [address] [place], [address] MCHC (RBC) [Mass/Vol] 31.9 g/dL Low 32-36 [facility] Comment on above: Performed By: #### L 100.0100, L500.2500 ####[facility] [address] [place], [address] MCV (RBC) [Entitic vol] 85.7 fL Normal 81-99 [facility] Comment on above: Performed By: #### L 100.0100, L500.2500 ####[facility] [address], [address] Monocytes/100 WBC (Bld) 3.4 % Normal 0-10 [facility] Comment on above: Performed By: #### L 100.0100, L500.2500 ####[facility] [address] [place], [address] Neutrophils/100 WBC (Bld) 83.9 % High 47-70 [facility] Comment on above: Performed By: #### L 100.0100, L500.2500 ####[facility] [address] [place], [address] Nucleated RBC (Bld) [#/Vol] 0 10*3/uL Normal 0-5 [facility] Comment on above: Performed By: #### L 100.0100, L500.2500 ####[facility] [address] [place], [address] Platelet mean volume (Bld) [Entitic vol] 9.2 fL Normal 6.2-12.0 [facility] Comment on above: Performed By: #### L 100.0100, L500.2500 ####[facility] [address] [place], [address] Platelets (Bld) [#/Vol] 234 10*3/uL Normal 150-450 [facility] Comment on above: Performed By: #### L 100.0100, L500.2500 ####[facility] [address], [address] RBC (Bld) [#/Vol] 3.15 10*6/uL Low 4.2-5.4 [facility] Comment on above: Performed By: #### L 100.0100, L500.2500 ####[facility] [address] [place], [address] RDW SD 52.5 fl High 35.1-43.9 [facility] Comment on above: Performed By: #### L 100.0100, L500.2500 ####[facility] [address] [place], [address] WBC (Bld) [#/Vol] 15.3 10*3/uL High 4.4-11.0 [facility] Comment on above: Performed By: #### L 100.0100, L500.2500 ####[facility] [address] [place], [address] Absolute Neut Normal 2.0-7.7 [facility] Comment on above: Result Comment: Canc elled via OM: Order cancelled - Patient discharged Performed By: #### L 500.2500, L100.0100 ####[facility] [address] [place], [address] HCT Normal 37-47 [facility] Comment on above: Result Comment: Canc elled via OM: Order cancelled - Patient discharged Performed By: #### L 500.2500, L100.0100 ####[facility] [address] [place], [address] HGB Normal 12.0-15.0 [facility] Comment on above: Result Comment: Canc elled via OM: Order cancelled - Patient discharged Performed By: #### L 500.2500, L100.0100 ####[facility] [address] [place], [address] MCH Normal 27.0-32.0 [facility] Comment on above: Result Comment: Canc elled via OM: Order cancelled - Patient discharged Performed By: #### L 500.2500, L100.0100 ####[facility] [address] [place], [address] MCHC Normal 32-36 [facility] Comment on above: Result Comment: Canc elled via OM: Order cancelled - Patient discharged Performed By: #### L 500.2500, L100.0100 ####[facility] [address], [address] MCV Normal 81-99 [facility] Comment on above: Result Comment: Canc elled via OM: Order cancelled - Patient discharged Performed By: #### L 500.2500, L100.0100 ####[facility] [address] [place], [address] NEUT% Normal 47-70 [facility] Comment on above: Result Comment: Canc elled via OM: Order cancelled - Patient discharged Performed By: #### L 500.2500, L100.0100 ####[facility] [address] [place], [address] PLT Normal 150-450 [facility] Comment on above: Result Comment: Canc elled via OM: Order cancelled - Patient discharged Performed By: #### L 500.2500, L100.0100 ####[facility] [address] [place], [address] RBC Normal 4.2-5.4 [facility] Comment on above: Result Comment: Canc elled via OM: Order cancelled - Patient discharged Performed By: #### L 500.2500, L100.0100 ####[facility] [address] [place], [address] RDW CV Normal 11.6-14.6 [facility] Comment on above: Result Comment: Canc elled via OM: Order cancelled - Patient discharged Performed By: #### L 500.2500, L100.0100 ####[facility] [address] [place], [address] RDW SD Normal 35.1-43.9 [facility] Comment on above: Result Comment: Canc elled via OM: Order cancelled - Patient discharged Performed By: #### L 500.2500, L100.0100 ####[facility] [address] [place], [address] WBC Normal 4.4-11.0 [facility] Comment on above: Result Comment: Canc elled via OM: Order cancelled - Patient discharged Performed By: #### L 500.2500, L100.0100 ####[facility] [address] [place], [address] ALP [Catalytic activity/Vol] Ordered By: [facility] on 08-04-2024 Serum or plasma alkaline phosphatase measurement 56 U/L 35-104 [facility] ALT [Catalytic activity/Vol] Ordered By: [facility] on 08-04-2024 Serum or plasma alanine aminotransferase (ALT) measurement 7 U/L <35 [facility] Albumin [Mass/Vol]Ordered By : [facility] on 08-04-2024 Serum or plasma albumin measurement (mass/volume) 2.1 g/dL Low 3.4-4.8 [facility] Albumin/Globulin [Mass ratio ]Ordered By: [facility] on 08-04-2024 Serum or plasma albumin/globulin mass ratio 0.7 RATIO Low 0.9-2.4 [facility] [id number] 08-04-2024 ANTIBODY ID Normal [facility] Comment on above: Order Comment: CMV N EG? NNumber of units to transfuse: 1Is this product for anemia associated withhemoglobinopathy? NIs pt's Hgb is 10mmHg)? NIs this for PREOP anemia correction prior to anesthesia? NReason for Ordering Blood: ChronicIs there symptomatic anemia? NAre the blood/blood products to be transfused? YIs the patient having/had surgery? NWhen ReadyNY Result Comment: CFYA Performed By: #### B TS, BRC, [id number] ####[facility] [address] [place], [address] BRCon 08-04-2024 RC Normal [facility] Comment on above: Result Comment: [id number] ON RC TRANSFUSED 08/04/24 1435 Performed By: #### B TS, BR, [id number] ####[facility] [address] [place], [address] Basic Metabolic Profile (BMP )on 08-04-2024 BUN Normal 4-19 [facility] Comment on above: Result Comment: Canc elled via OM: Order cancelled - Patient discharged Performed By: #### L 500.2500, L100.0100 ####[facility] [address] [place], [address] Order Comment: UTO X 2 PHLEBS, NOTIFIED NURSE THERESA Result Comment: MORE RECENT SPECIMEN COLLECTED. Performed By: #### L 100.0100, L500.2500 ####[facility] [address] [place], [address] BUN/CRE Normal 10-20 [facility] Comment on above: Result Comment: Canc elled via OM: Order cancelled - Patient discharged Performed By: #### L 500.2500, L100.0100 ####[facility] [address] [place], [address] Order Comment: UTO X 2 PHLEBS, NOTIFIED NURSE THERESA Result Comment: MORE RECENT SPECIMEN COLLECTED. Performed By: #### L 100.0100, L500.2500 ####[facility] [address] [place], [address] Calcium Normal 7.6-11.0 [facility] Comment on above: Result Comment: Canc elled via OM: Order cancelled - Patient discharged Performed By: #### L 500.2500, L100.0100 ####[facility] [address] [place], [address] Order Comment: UTO X 2 PHLEBS, NOTIFIED NURSE THERESA Result Comment: MORE RECENT SPECIMEN COLLECTED. Performed By: #### L 100.0100, L500.2500 ####[facility] [address], [address] CL Normal 98-108 [facility] Comment on above: Result Comment: Canc elled via OM: Order cancelled - Patient discharged Performed By: #### L 500.2500, L100.0100 ####[facility] [address], [address] Order Comment: UTO X 2 PHLEBS, NOTIFIED NURSE THERESA Result Comment: MORE RECENT SPECIMEN COLLECTED. Performed By: #### L 100.0100, L500.2500 ####[facility] [address] [place], [address] CO2 Normal 21.0-32.0 [facility] Comment on above: Result Comment: Canc elled via OM: Order cancelled - Patient discharged Performed By: #### L 500.2500, L100.0100 ####[facility] [address] [place], [address] Order Comment: UTO X 2 PHLEBS, NOTIFIED NURSE THERESA Result Comment: MORE RECENT SPECIMEN COLLECTED. Performed By: #### L 100.0100, L500.2500 ####[facility] [address] [place], [address] CREAT,SERUM Normal 0.70-1.20 [facility] Comment on above: Result Comment: Canc elled via OM: Order cancelled - Patient discharged Performed By: #### L 500.2500, L100.0100 ####[facility] [address] [place], [address] Order Comment: UTO X 2 PHLEBS, NOTIFIED NURSE THERESA Result Comment: MORE RECENT SPECIMEN COLLECTED. Performed By: #### L 100.0100, L500.2500 ####[facility] [address] [place], [address] eGFR Normal >60 [facility] Comment on above: Result Comment: Canc elled via OM: Order cancelled - Patient discharged Performed By: #### L 500.2500, L100.0100 ####[facility] [address] [place], [address] Order Comment: UTO X 2 PHLEBS, NOTIFIED NURSE THERESA Result Comment: MORE RECENT SPECIMEN COLLECTED. Performed By: #### L 100.0100, L500.2500 ####[facility] [address] [place], [address] GAP Normal 5-15 [facility] Comment on above: Result Comment: Canc elled via OM: Order cancelled - Patient discharged Performed By: #### L 500.2500, L100.0100 ####[facility] [address] [place], [address] Order Comment: UTO X 2 PHLEBS, NOTIFIED NURSE THERESA Result Comment: MORE RECENT SPECIMEN COLLECTED. Performed By: #### L 100.0100, L500.2500 ####[facility] [address] [place], [address] GLU Normal 70-99 [facility] Comment on above: Result Comment: Canc elled via OM: Order cancelled - Patient discharged Performed By: #### L 500.2500, L100.0100 ####[facility] [address] [place], [address] Order Comment: UTO X 2 PHLEBS, NOTIFIED NURSE THERESA Result Comment: MORE RECENT SPECIMEN COLLECTED. Performed By: #### L 100.0100, L500.2500 ####[facility] [address] [place], [address] Potassium Normal 3.3-5.1 [facility] Comment on above: Result Comment: Canc elled via OM: Order cancelled - Patient discharged Performed By: #### L 500.2500, L100.0100 ####[facility] [address] [place], [address] Order Comment: UTO X 2 PHLEBS, NOTIFIED NURSE THERESA Result Comment: MORE RECENT SPECIMEN COLLECTED. Performed By: #### L 100.0100, L500.2500 ####[facility] [address] [place], [address] Basic Metabolic Profile (BMP) Normal 133-145 [facility] Comment on above: Result Comment: Canc elled via OM: Order cancelled - Patient discharged Performed By: #### L 500.2500, L100.0100 ####[facility] [address], [address] Order Comment: UTO X 2 PHLEBS, NOTIFIED NURSE THERESA Result Comment: MORE RECENT SPECIMEN COLLECTED. Performed By: #### L 100.0100, L500.2500 ####[facility] [address] [place], [address] Bedside Glucoseon 08-04-2024 FINGERSTICK GLU 76 mg/dL Normal 74-106 [facility] Comment on above: Result Comment: LUIZA GEMENT OF PATIENT CARE PER NURSING PROTOCOL Performed By: #### L 501.080 ####[facility] [address] [place], [address] FINGERSTICK GLU 75 mg/dL Normal 74-106 [facility] Comment on above: Result Comment: LUIZA GEMENT OF PATIENT CARE PER NURSING PROTOCOL Performed By: #### L 501.080 ####[facility] [address] [place], [address] FINGERSTICK GLU 14 mg/dL Invalid Interpretation Code 74-106 [facility] Comment on above: Result Comment: LUIZA GEMENT OF PATIENT CARE PER NURSING PROTOCOL Performed By: #### L 501.080 ####[facility] [address] [place], [address] FINGERSTICK GLU < 10 Invalid Interpretation Code -[address] [place] [address] Comment on above: Result Comment: Dr George mathis FollowedMANAGEMENT OF PATIENT CARE PER NURSING PROTOCOL Performed By: #### L 501.080 ####[facility] [address] [place], [address] FINGERSTICK GLU < 10 Invalid Interpretation Code [address] [place] [address] Comment on above: Result Comment: Dr George mathis FollowedMANAGEMENT OF PATIENT CARE PER NURSING PROTOCOL Performed By: #### L 501.080 ####[facility] [address] [place], [address] FINGERSTICK GLU 16 mg/dL Invalid Interpretation Code [address] [place] [address] Comment on above: Result Comment: LUIZA GEMENT OF PATIENT CARE PER NURSING PROTOCOL Performed By: #### L 501.080 ####[facility] [address] [place], [address] Bilirubin, totalOrdered By: Dudley on 08-04-2024 Bilirubin [Mass/Vol] 0.23 mg/dL 0.00-1.30 [facility] Bilirubin, total 0.23 mg/dL 0.00-1.30 [facility] Blood band neutrophil count as percentage of total leukocytesOrdered By: on 08-04-2024 Band form neutrophils/100 WBC (Bld) 1 % 0-5 [facility] Blood band neutrophil count as percentage of total leukocytes 1 % 0-5 [facility] Blood eosinophils/100 leukoc ytesOrdered By: on 08-04-2024 Eosinophils/100 WBC (Bld) 1 % 0-5 [facility] Blood lymphocytes/100 leukoc ytesOrdered By: on 08-04-2024 Lymphocytes/100 WBC (Bld) 13 % Low 19-41 [facility] Blood metamyelocytes/100 massiel kocytesOrdered By: on 08-04-2024 Metamyelocytes/100 WBC (Bld) 2 % High 0-1 [facility] Blood metamyelocytes/100 leukocytes 2 % 0-10 [facility] Blood monocytes/100 leukocyt esOrdered By: on 08-04-2024 Monocytes/100 WBC (Bld) 2 % 0-10 [facility] Blood segmented neutrophils/ 100 leukocytesOrdered By: White on 08-04-2024 Segmented neutrophils/100 WBC (Bld) 81 % High 47-70 [facility] CBC W/Diff, Automatedon Absolute Lymph 1.24 X10 3/uL Normal 0.83-4.51 [facility] Comment on above: Performed By: #### L 100.0100 ####[facility] [address] [place], [address] Absolute Neut 7.9 X10 3/uL High 2.0-7.7 [facility] Comment on above: Performed By: #### L 100.0100 ####[facility] [address] [place], [address] PATH REV May foll Normal [facility] Comment on above: Performed By: #### L 100.0100 ####[facility] [address] [place], [address] Absolute Neut Normal 2.0-7.7 [facility] Comment on above: Result Comment: Canc elled via OM: Order cancelled - Patient discharged Performed By: #### L 500.2500, L100.0100 ####[facility] [address] [place], [address] Order Comment: UTO X 2 PHLEBS, NOTIFIED NURSE THERESA Result Comment: DUPL ICATE Performed By: #### L 100.0100, L500.2500 ####[facility] [address] [place], [address] HCT Normal 37-47 [facility] Comment on above: Result Comment: Canc elled via OM: Order cancelled - Patient discharged Performed By: #### L 500.2500, L100.0100 ####[facility] [address] [place], [address] Order Comment: UTO X 2 PHLEBS, NOTIFIED NURSE THERESA Result Comment: DUPL ICATE Performed By: #### L 100.0100, L500.2500 ####[facility] [address] [place], [address] HGB Normal 12.0-15.0 [facility] Comment on above: Result Comment: Canc elled via OM: Order cancelled - Patient discharged Performed By: #### L 500.2500, L100.0100 ####[facility] [address] [place], [address] Order Comment: UTO X 2 PHLEBS, NOTIFIED NURSE THERESA Result Comment: DUPL ICATE Performed By: #### L 100.0100, L500.2500 ####[facility] [address] [place], [address] MCH Normal 27.0-32.0 [facility] Comment on above: Result Comment: Canc elled via OM: Order cancelled - Patient discharged Performed By: #### L 500.2500, L100.0100 ####[facility] [address] [place], [address] Order Comment: UTO X 2 PHLEBS, NOTIFIED NURSE THERESA Result Comment: DUPL ICATE Performed By: #### L 100.0100, L500.2500 ####[facility] [address] [place], [address] MCHC Normal 32-36 [facility] Comment on above: Result Comment: Canc elled via OM: Order cancelled - Patient discharged Performed By: #### L 500.2500, L100.0100 ####[facility] [address] [place], [address] Order Comment: UTO X 2 PHLEBS, NOTIFIED NURSE THERESA Result Comment: DUPL ICATE Performed By: #### L 100.0100, L500.2500 ####[facility] [address] [place], [address] MCV Normal 81-99 [facility] Comment on above: Result Comment: Canc elled via OM: Order cancelled - Patient discharged Performed By: #### L 500.2500, L100.0100 ####[facility] [address] [place], [address] Order Comment: UTO X 2 PHLEBS, NOTIFIED NURSE THERESA Result Comment: DUPL ICATE Performed By: #### L 100.0100, L500.2500 ####[facility] [address] [place], [address] NEUT% Normal 47-70 [facility] Comment on above: Result Comment: Canc elled via OM: Order cancelled - Patient discharged Performed By: #### L 500.2500, L100.0100 ####[facility] [address] [place], [address] Order Comment: UTO X 2 PHLEBS, NOTIFIED NURSE THERESA Result Comment: DUPL ICATE Performed By: #### L 100.0100, L500.2500 ####[facility] [address] [place], [address] PLT Normal 150-450 [facility] Comment on above: Result Comment: Canc elled via OM: Order cancelled - Patient discharged Performed By: #### L 500.2500, L100.0100 ####[facility] [address] [place], [address] Order Comment: UTO X 2 PHLEBS, NOTIFIED NURSE THERESA Result Comment: DUPL ICATE Performed By: #### L 100.0100, L500.2500 ####[facility] [address] [place], [address] RBC Normal 4.2-5.4 [facility] Comment on above: Result Comment: Canc elled via OM: Order cancelled - Patient discharged Performed By: #### L 500.2500, L100.0100 ####[facility] [address] [place], [address] Order Comment: UTO X 2 PHLEBS, NOTIFIED NURSE THERESA Result Comment: DUPL ICATE Performed By: #### L 100.0100, L500.2500 ####[facility] [address] [place], [address] RDW CV Normal 11.6-14.6 [facility] Comment on above: Result Comment: Canc elled via OM: Order cancelled - Patient discharged Performed By: #### L 500.2500, L100.0100 ####[facility] [address] [place], [address] Order Comment: UTO X 2 PHLEBS, NOTIFIED NURSE THERESA Result Comment: DUPL ICATE Performed By: #### L 100.0100, L500.2500 ####[facility] [address] [place], [address] RDW SD Normal 35.1-43.9 [facility] Comment on above: Result Comment: Canc elled via OM: Order cancelled - Patient discharged Performed By: #### L 500.2500, L100.0100 ####[facility] [address] [place], [address] Order Comment: UTO X 2 PHLEBS, NOTIFIED NURSE THERESA Result Comment: DUPL ICATE Performed By: #### L 100.0100, L500.2500 ####[facility] [address] [place], [address] WBC Normal 4.4-11.0 [facility] Comment on above: Result Comment: Canc elled via OM: Order cancelled - Patient discharged Performed By: #### L 500.2500, L100.0100 ####[facility] [address] [place], [address] Order Comment: UTO X 2 PHLEBS, NOTIFIED NURSE THERESA Result Comment: DUPL ICATE Performed By: #### L 100.0100, L500.2500 ####[facility] [address] [place], [address] Cells counted Molgen (Bld/Ti ss) [#]Ordered By: Ivone Buckner on 08-04-2024 Total cell count 100 MANUAL DIFF [facility] Comprehensive Metabolic Prof ilon 08-04-2024 Albumin [Mass/Vol] 2.1 g/dL Low 3.4-4.8 [facility] Comment on above: Performed By: #### L 500.4050 ####[facility] [address] [place], [address] Albumin/Globulin [Mass ratio] 0.7 {ratio} Low 0.9-2.4 [facility] Comment on above: Performed By: #### L 500.4050 ####[facility] [address] [place], [address] ALK PHOS 56 U/L Normal 35-104 [facility] Comment on above: Performed By: #### L 500.4050 ####[facility] [address] [place], [address] ALT [Catalytic activity/Vol] 7 U/L Normal <=34 [facility] Comment on above: Performed By: #### L 500.4050 ####[facility] [address] [place], [address] AST [Catalytic activity/Vol] 25 U/L Normal <=31 [facility] Comment on above: Performed By: #### L 500.4050 ####[facility] [address] [place], [address] Bilirubin [Mass/Vol] 0.23 mg/dL Normal 0.00-1.30 [facility] Comment on above: Performed By: #### L 500.4050 ####[facility] [address] [place], [address] BUN/CRE 39.2 RATIO High 10-20 [facility] Comment on above: Performed By: #### L 500.4050 ####[facility] [address] [place], [address] Calcium [Mass/Vol] 8.0 mg/dL Normal 7.6-11.0 [facility] Comment on above: Performed By: #### L 500.4050 ####[facility] [address] [place], [address] Chloride [Moles/Vol] 101 mmol/L Normal 98-108 [facility] Comment on above: Performed By: #### L 500.4050 ####[facility] [address] [place], [address] CO2 [Moles/Vol] 22.9 mmol/L Normal 21.0-32.0 [facility] Comment on above: Performed By: #### L 500.4050 ####[facility] [address] [place], [address] Creatinine [Mass/Vol] 1.41 mg/dL High 0.70-1.20 [facility] Comment on above: Performed By: #### L 500.4050 ####[facility] [address] [place], [address] ECRCL 30.04 ml/min Low 50-250 [facility] Comment on above: Performed By: #### L 500.4050 ####[facility] [address] [place], [address] GAP 9 Normal 5-15 [facility] Comment on above: Performed By: #### L 500.4050 ####[facility] [address] [place], [address] GFR/1.73 sq M.predicted among non-blacks MDRD (S/P/Bld) [Vol rate/Area] 42 mL/min/{1.73_m2} Low >60 [facility] Comment on above: Result Comment: mL/m in/1.73m2 CKD-EPI Creatinine Equation (2020) Performed By: #### L 500.4050 ####[facility] [address] [place], [address] Globulin (S) [Mass/Vol] 3.1 g/dL Normal 2.2-4.2 [facility] Comment on above: Performed By: #### L 500.4050 ####[facility] [address] [place], [address] Glucose [Mass/Vol] 153 mg/dL High 70-99 [facility] Comment on above: Performed By: #### L 500.4050 ####[facility] [address] [place], [address] Potassium [Moles/Vol] 4.7 mmol/L Normal 3.3-5.1 [facility] Comment on above: Performed By: #### L 500.4050 ####[facility] [address] [place], [address] Sodium [Moles/Vol] 134 mmol/L Normal 133-145 [facility] Comment on above: Performed By: #### L 500.4050 ####[facility] [address] [place], [address] T PROT 5.2 g/dL Low 5.9-8.4 [facility] Comment on above: Performed By: #### L 500.4050 ####[facility] [address] [place], [address] Urea nitrogen [Mass/Vol] 55 mg/dL High 4-19 [facility] Comment on above: Performed By: #### L 500.4050 ####[facility] [address] [place], [place], [address] Erythrocyte morphology asses smentOrdered By: Ivone Dudley on 08-04-2024 RBC morphology finding Nom (Bld) N CYTIC NORMAL NORM C&C [facility] HH, Hemoglobin AND Hematocri ton 08-04-2024 Hematocrit (Bld) [Volume fraction] 27.1 % Low 37-47 [facility] Comment on above: Order Comment: Comme nts: 1-2 hours after PRBC completion. Performed By: #### L 100.0600 ####[facility] [address] [place], [place], [address] Hemoglobin (Bld) [Mass/Vol] 8.6 g/dL Low 12.0-15.0 [facility] Comment on above: Order Comment: Comme nts: 1-2 hours after PRBC completion. Performed By: #### L 100.0600 ####[facility] [address] [place], [place], [address] Hypochromatic red blood cell detectionOrdered By: Ivone Dudley on 08-04-2024 Hypochromia Ql (Bld) 1+ [facility] Hypochromia Ql (Bld)Ordered By: Ivone Dudley on 08-04-2024 Hypochromatic red blood cell detection 1+ [facility] L499.0042on 08-04-2024 Trop T High Sen 146 ng/L Invalid Interpretation Code <=14 [facility] Comment on above: Result Comment: Crit ical Result(s) Called to Ginette MEJIA ([facility]): Fausto:??Results read back by same. Performed By: #### L 499.0042 ####[facility] [address] [place], [place], [address] L501.4021on 08-04-2024 Trop T High Sen 152 ng/L Invalid Interpretation Code <=14 [facility] Comment on above: Result Comment: Crit ical Result(s) Called at:[id number] by: WALTER KENNEDY TO NICOLEBILANCINI??Results read back by same. Performed By: #### L 501.4021 ####[facility] [address] [place], [address] Lymphocytes/100 WBC (Bld)Ord ered By: Ivone Buckner on 08-04-2024 Blood lymphocytes/100 leukocytes 13 % Low 19-41 [facility] No Panel InformationOrdered By: Ivone Buckner on 08-04-2024 152 ng/L High <14 [facility] 25 U/L <32 [facility] Pathologist review Horace (Unsp spec) [Interp]Ordered By: Ivone Buckner on 08-04-2024 Review by pathologist May [facility] [place] Platelet estimateOrdered By: Ivone Buckner on 08-04-2024 Platelets LM Ql (Bld) ADEQUATE ADEQ [facility] Platelets LM Ql (Bld)Ordered By: Ivone Buckner on 08-04-2024 Platelet estimate ADEQUATE ADEQ [facility] RBC morphology finding Nom ( Bld)Ordered By: Ivone Buckner on 08-04-2024 Erythrocyte morphology assessment N CYTIC NORMAL NORM C&C [facility] Review by pathologistOrdered By: Ivone Buckner on 08-04-2024 Pathologist review Horace (Unsp spec) [Interp] May [facility] Segmented neutrophils/100 WB C (Bld)Ordered By: Ivone Buckner on 08-04-2024 Blood segmented neutrophils/100 leukocytes 81 % High 47-70 [facility] Serum globulin measurementOr dered By: Ivone Buckner on 08-04-2024 Globulin (S) [Mass/Vol] 3.1 g/dL 2.2-4.2 [facility] Serum globulin measurement 3.1 g/dL 2.2-4.2 [facility] Serum or plasma alanine camargo otransferase (ALT) measurementOrdered By: Ivone Buckner on 08-04-2024 ALT [Catalytic activity/Vol] 7 U/L <35 [facility] Serum or plasma albumin megan urement (mass/volume)Ordered By: Ivone Buckner on 08-04-2024 Albumin [Mass/Vol] 2.1 g/dL Low 3.4-4.8 [facility] Serum or plasma albumin/glob ulin mass ratioOrdered By: Ivone Buckner on 08-04-2024 Albumin/Globulin [Mass ratio] 0.7 {ratio} Low 0.9-2.4 [facility] Serum or plasma alkaline susan sphatase measurementOrdered By: Ivone Buckner on 08-04-2024 ALP [Catalytic activity/Vol] 56 U/L 35-104 [facility] Total cell countOrdered By: Ivone Buckner on 08-04-2024 Cells counted Molgen (Bld/Tiss) [#] 100 MANUAL DIFF [facility] Total proteinOrdered By: Nona Buckner on 08-04-2024 Protein [Mass/Vol] 5.2 g/dL Low 5.9-8.4 [facility] Total protein 5.2 g/dL Low 5.9-8.4 [facility] Troponin T.cardiac High sens itivity method [Mass/Vol]Ordered By: Ivone Buckner on 08-04-2024 Troponin T.cardiac [Mass/volume] in Serum or Plasma by High sensitivity method 146 ng/L High <14 [facility] Troponin T.cardiac [Mass/vol ume] in Serum or Plasma by High sensitivity methodOrdered By: Ivone Buckner on 08-04-2024 Troponin T.cardiac High sensitivity method [Mass/Vol] 146 ng/L High <14 [facility] Type AND Screenon 08-04-2024 ABO and Rh group Nom (Bld) Blood group O Rh(D) positive Normal [facility] Comment on above: Order Comment: CMV N EG? NNumber of units to transfuse: 1Is this product for anemia associated withhemoglobinopathy? NIs pt's Hgb is 10mmHg)? NIs this for PREOP anemia correction prior to anesthesia? NReason for Ordering Blood: ChronicIs there symptomatic anemia? NAre the blood/blood products to be transfused? YIs the patient having/had surgery? NWmari Roberts Performed By: #### B , [facility], [id number] ####[facility] [address] [place], [address] Basic Metabolic Profile (BMP )on 08-03-2024 BUN/CRE 31.7 RATIO High 10-20 [facility] Comment on above: Performed By: #### L 500.2500, L100.0100 ####[facility] [address] [place], [address] Calcium [Mass/Vol] 8.6 mg/dL Normal 7.6-11.0 [facility] Comment on above: Performed By: #### L 500.2500, L100.0100 ####[facility] [address] [place], [address] Chloride [Moles/Vol] 102 mmol/L Normal 98-108 [facility] Comment on above: Performed By: #### L 500.2500, L100.0100 ####[facility] [address] [place], [address] CO2 [Moles/Vol] 21.1 mmol/L Normal 21.0-32.0 [facility] Comment on above: Performed By: #### L 500.2500, L100.0100 ####[facility] [address] [place], [address] Creatinine [Mass/Vol] 1.24 mg/dL High 0.70-1.20 [facility] Comment on above: Performed By: #### L 500.2500, L100.0100 ####[facility] [address] [place], [address] ECRCL 34.16 ml/min Low 50-250 [facility] Comment on above: Performed By: #### L 500.2500, L100.0100 ####[facility] [address] [place], [address] GAP 13 Normal 5-15 [facility] Comment on above: Performed By: #### L 500.2500, L100.0100 ####[facility] [address] [place], [address] GFR/1.73 sq M.predicted among non-blacks MDRD (S/P/Bld) [Vol rate/Area] 49 mL/min/{1.73_m2} Low >60 [facility] Comment on above: Result Comment: mL/m in/1.73m2 CKD-EPI Creatinine Equation (2020) Performed By: #### L 500.2500, L100.0100 ####[facility] [address] [place], [address] Glucose [Mass/Vol] 65 mg/dL Low 70-99 [facility] Comment on above: Performed By: #### L 500.2500, L100.0100 ####[facility] [address] [place], [address] Potassium [Moles/Vol] 4.8 mmol/L Normal 3.3-5.1 [facility] Comment on above: Performed By: #### L 500.2500, L100.0100 ####[facility] [address] [place], [address] Sodium [Moles/Vol] 135 mmol/L Normal 133-145 [facility] Comment on above: Performed By: #### L 500.2500, L100.0100 ####[facility] [address] [place], [address] Urea nitrogen [Mass/Vol] 39 mg/dL High 4- [facility] Comment on above: Performed By: #### L 500.2500, L100.0100 ####[facility] [address] [place], [address] BUN Normal - [facility] Comment on above: Result Comment: Canc elled via OM: Order cancelled - Patient discharged Performed By: #### L 500.2500, L100.0100 ####[facility] [address] [place], [address] BUN/CRE Normal - [facility] Comment on above: Result Comment: Canc elled via OM: Order cancelled - Patient discharged Performed By: #### L 500.2500, L100.0100 ####[facility] [address] [place], [address] Calcium Normal 7.6-11.0 [facility] Comment on above: Result Comment: Canc elled via OM: Order cancelled - Patient discharged Performed By: #### L 500.2500, L100.0100 ####[facility] [address] [place], [address] CL Normal 98-107 [facility] Comment on above: Result Comment: Canc elled via OM: Order cancelled - Patient discharged Performed By: #### L 500.2500, L100.0100 ####[facility] [address] [place], [address] CO2 Normal 21.0-32.0 [facility] Comment on above: Result Comment: Canc elled via OM: Order cancelled - Patient discharged Performed By: #### L 500.2500, L100.0100 ####[facility] [address] [place], [address] CREAT,SERUM Normal 0.70-1.20 [facility] Comment on above: Result Comment: Canc elled via OM: Order cancelled - Patient discharged Performed By: #### L 500.2500, L100.0100 ####[facility] [address] [place], [address] eGFR Normal >60 [facility] Comment on above: Result Comment: Canc elled via OM: Order cancelled - Patient discharged Performed By: #### L 500.2500, L100.0100 ####[facility] [address] [place], [address] GAP Normal 5-15 [facility] Comment on above: Result Comment: Canc elled via OM: Order cancelled - Patient discharged Performed By: #### L 500.2500, L100.0100 ####[facility] [address] [place], [address] GLU Normal 70-99 [facility] Comment on above: Result Comment: Canc elled via OM: Order cancelled - Patient discharged Performed By: #### L 500.2500, L100.0100 ####[facility] [address] [place], [address] Potassium Normal 3.5-5.1 [facility] Comment on above: Result Comment: Canc elled via OM: Order cancelled - Patient discharged Performed By: #### L 500.2500, L100.0100 ####[facility] [address] [place], [address] Basic Metabolic Profile (BMP) Normal 136-145 [facility] Comment on above: Result Comment: Canc elled via OM: Order cancelled - Patient discharged Performed By: #### L 500.2500, L100.0100 ####[facility] [address] [place], [address] CBC W/Diff, Automatedon 03-0 8-2024 Absolute Lymph 0.88 X10 3/uL Normal 0.83-4.51 [facility] Comment on above: Performed By: #### L 500.2500, L100.0100 ####[facility] [address] [place], [address] Absolute Neut 9.0 X10 3/uL High 2.0-7.7 [facility] Comment on above: Performed By: #### L 500.2500, L100.0100 ####[facility] [address] [place], [address] Basophils/100 WBC (Bld) 0.5 % Normal 0-1 [facility] Comment on above: Performed By: #### L 500.2500, L100.0100 ####[facility] [address] [place], [address] Eosinophils/100 WBC (Bld) 1.3 % Normal 0-5 [facility] Comment on above: Performed By: #### L 500.2500, L100.0100 ####[facility] [facility] [address] [place], [address] Erythrocyte distribution width (RBC) [Ratio] 17.3 % High 11.6-14.6 [facility] Comment on above: Performed By: #### L 500.2500, L100.0100 ####[facility] [address] [place], [address] Hematocrit (Bld) [Volume fraction] 27.9 % Low 37-47 [facility] Comment on above: Performed By: #### L 500.2500, L100.0100 ####[facility] [address] [place], [address] Hemoglobin (Bld) [Mass/Vol] 8.0 g/dL Low 12.0-15.0 [facility] Comment on above: Performed By: #### L 500.2500, L100.0100 ####[facility] [address] [place], [address] IG% 3.700 High 0.0-0.9 [facility] Comment on above: Result Comment: IG% - Immature Granulocytes (promyelocytes, myelocytes andmetamyelocytes) > 1% indicates that a LEFT SHIFT is Present. Performed By: #### L 500.2500, L100.0100 ####[facility] [address] [place], [address] Lymphocytes/100 WBC (Bld) 7.9 % Low 19-41 [facility] Comment on above: Performed By: #### L 500.2500, L100.0100 ####[facility] [address] [place], [address] MCH (RBC) [Entitic mass] 25.2 pg Low 27.0-32.0 [facility] Comment on above: Performed By: #### L 500.2500, L100.0100 ####[facility] [address] [place], [address] MCHC (RBC) [Mass/Vol] 28.7 g/dL Low 32-36 [facility] Comment on above: Performed By: #### L 500.2500, L100.0100 ####[facility] [address] [place], [address] MCV (RBC) [Entitic vol] 88.0 fL Normal 81-99 [facility] Comment on above: Performed By: #### L 500.2500, L100.0100 ####[facility] [address] [place], [address] Monocytes/100 WBC (Bld) 5.5 % Normal 0-10 [facility] Comment on above: Performed By: #### L 500.2500, L100.0100 ####[facility] [address] [place], [address] Neutrophils/100 WBC (Bld) 81.1 % High 47-70 [facility] Comment on above: Performed By: #### L 500.2500, L100.0100 ####[facility] [address] [place], [address] Nucleated RBC (Bld) [#/Vol] 0 10*3/uL Normal 0-5 [facility] Comment on above: Performed By: #### L 500.2500, L100.0100 ####[facility] [address] [place], [address] Platelet mean volume (Bld) [Entitic vol] 9.2 fL Normal 6.2-12.0 [facility] Comment on above: Performed By: #### L 500.2500, L100.0100 ####[facility] [address] [place], [address] Platelets (Bld) [#/Vol] 265 10*3/uL Normal 150-450 [facility] Comment on above: Performed By: #### L 500.2500, L100.0100 ####[facility] [address] [place], [address] RBC (Bld) [#/Vol] 3.17 10*6/uL Low 4.2-5.4 [facility] Comment on above: Performed By: #### L 500.2500, L100.0100 ####[facility] [address] [place], [address] RDW SD 55.2 fl High 35.1-43.9 [facility] Comment on above: Performed By: #### L 500.2500, L100.0100 ####[facility] [address] [place], [address] WBC (Bld) [#/Vol] 11.1 10*3/uL High 4.4-11.0 [facility] Comment on above: Performed By: #### L 500.2500, L100.0100 ####[facility] [address] [place], [address] Absolute Neut Normal 2.0-7.7 [facility] Comment on above: Result Comment: Canc elled via OM: Order cancelled - Patient discharged Performed By: #### L 500.2500, L100.0100 ####[facility] [address] [place], [address] HCT Normal 37-47 [facility] Comment on above: Result Comment: Canc elled via OM: Order cancelled - Patient discharged Performed By: #### L 500.2500, L100.0100 ####[facility] [address] [place], [address] HGB Normal 12.0-15.0 [facility] Comment on above: Result Comment: Canc elled via OM: Order cancelled - Patient discharged Performed By: #### L 500.2500, L100.0100 ####[facility] [address] [place], [address] MCH Normal 27.0-32.0 [facility] Comment on above: Result Comment: Canc elled via OM: Order cancelled - Patient discharged Performed By: #### L 500.2500, L100.0100 ####[facility] [address] [place], [address] MCHC Normal 32-36 [facility] Comment on above: Result Comment: Canc elled via OM: Order cancelled - Patient discharged Performed By: #### L 500.2500, L100.0100 ####[facility] [address] [place], [address] MCV Normal 81-99 [facility] Comment on above: Result Comment: Canc elled via OM: Order cancelled - Patient discharged Performed By: #### L 500.2500, L100.0100 ####[facility] [address] [place], [address] NEUT% Normal 47-70 [facility] Comment on above: Result Comment: Canc elled via OM: Order cancelled - Patient discharged Performed By: #### L 500.2500, L100.0100 ####[facility] [address] [place], [address] PLT Normal 150-450 [facility] Comment on above: Result Comment: Canc elled via OM: Order cancelled - Patient discharged Performed By: #### L 500.2500, L100.0100 ####[facility] [address] [place], [address] RBC Normal 4.2-5.4 [facility] Comment on above: Result Comment: Canc elled via OM: Order cancelled - Patient discharged Performed By: #### L 500.2500, L100.0100 ####[facility] [address] [place], [address] RDW CV Normal 11.6-14.6 [facility] Comment on above: Result Comment: Canc elled via OM: Order cancelled - Patient discharged Performed By: #### L 500.2500, L100.0100 ####[facility] [address] [place], [address] RDW SD Normal 35.1-43.9 [facility] Comment on above: Result Comment: Canc elled via OM: Order cancelled - Patient discharged Performed By: #### L 500.2500, L100.0100 ####[facility] [address] [place], [address] WBC Normal 4.4-11.0 [facility] Comment on above: Result Comment: Canc elled via OM: Order cancelled - Patient discharged Performed By: #### L 500.2500, L100.0100 ####[facility] [address] [place], [address] EGD Reporton 08-03-2024 EGD Report Normal [facility] MR/POSTOP.ANEon 08-03-2024 MR/POSTOP.ANE Normal [facility] MR/AIABQRUM9cg 08-03-2024 MR/POSTOPAN2 Normal [facility] Basic Metabolic Profile (BMP )on 08-02-2024 BUN/CRE 33.3 RATIO High 10-20 [facility] Comment on above: Performed By: #### L 100.0500, L500.2500 ####[facility] [address] [place], [address] Calcium [Mass/Vol] 8.9 mg/dL Normal 7.6-11.0 [facility] Comment on above: Performed By: #### L 100.0500, L500.2500 ####[facility] [address] [place], [address] Chloride [Moles/Vol] 101 mmol/L Normal 98-108 [facility] Comment on above: Performed By: #### L 100.0500, L500.2500 ####[facility] [address] [place], [address] CO2 [Moles/Vol] 23.8 mmol/L Normal 21.0-32.0 [facility] Comment on above: Performed By: #### L 100.0500, L500.2500 ####[facility] [address] [place], [address] Creatinine [Mass/Vol] 1.37 mg/dL High 0.70-1.20 [facility] Comment on above: Performed By: #### L 100.0500, L500.2500 ####[facility] [address] [place], [address] ECRCL 30.92 ml/min Low 50-250 [facility] Comment on above: Performed By: #### L 100.0500, L500.2500 ####[facility] [address] [place], [address] GAP 9 Normal 5-15 [facility] Comment on above: Performed By: #### L 100.0500, L500.2500 ####[facility] [address] [place], [address] GFR/1.73 sq M.predicted among non-blacks MDRD (S/P/Bld) [Vol rate/Area] 44 mL/min/{1.73_m2} Low >60 [facility] Comment on above: Result Comment: mL/m in/1.73m2 CKD-EPI Creatinine Equation (2020) Performed By: #### L 100.0500, L500.2500 ####[facility] [address] [place], [address] Glucose [Mass/Vol] 54 mg/dL Low 70-99 [facility] Comment on above: Performed By: #### L 100.0500, L500.2500 ####[facility] [address] [place], [address] Potassium [Moles/Vol] 5.3 mmol/L High 3.3-5.1 [facility] Comment on above: Performed By: #### L 100.0500, L500.2500 ####[facility] [address] [place], [address] Sodium [Moles/Vol] 134 mmol/L Normal 133-145 [facility] Comment on above: Performed By: #### L 100.0500, L500.2500 ####[facility] [address] [place], [address] Urea nitrogen [Mass/Vol] 46 mg/dL High 4-19 [facility] Comment on above: Performed By: #### L 100.0500, L500.2500 ####[facility] [address] [place], [address] BUN Normal 4-19 [facility] Comment on above: Result Comment: Canc elled via OM: Order cancelled - Patient discharged Performed By: #### L 500.2500, L100.0100 ####[facility] [address] [place], [address] BUN/CRE Normal 10-20 [facility] Comment on above: Result Comment: Canc elled via OM: Order cancelled - Patient discharged Performed By: #### L 500.2500, L100.0100 ####[facility] [address] [place], [address] Calcium Normal 7.6-11.0 [facility] Comment on above: Result Comment: Canc elled via OM: Order cancelled - Patient discharged Performed By: #### L 500.2500, L100.0100 ####[facility] [address] [place], [address] CL Normal 98-107 [facility] Comment on above: Result Comment: Canc elled via OM: Order cancelled - Patient discharged Performed By: #### L 500.2500, L100.0100 ####[facility] [address] [place], [address] CO2 Normal 21.0-32.0 [facility] Comment on above: Result Comment: Canc elled via OM: Order cancelled - Patient discharged Performed By: #### L 500.2500, L100.0100 ####[facility] [address] [place], [address] CREAT,SERUM Normal 0.70-1.20 [facility] Comment on above: Result Comment: Canc elled via OM: Order cancelled - Patient discharged Performed By: #### L 500.2500, L100.0100 ####[facility] [address] [place], [address] eGFR Normal >60 [facility] Comment on above: Result Comment: Canc elled via OM: Order cancelled - Patient discharged Performed By: #### L 500.2500, L100.0100 ####[facility] [address] [place], [address] GAP Normal 5-15 [facility] Comment on above: Result Comment: Canc elled via OM: Order cancelled - Patient discharged Performed By: #### L 500.2500, L100.0100 ####[facility] [address] [place], [address] GLU Normal 70-99 [facility] Comment on above: Result Comment: Canc elled via OM: Order cancelled - Patient discharged Performed By: #### L 500.2500, L100.0100 ####[facility] [address] [place], [address] Potassium Normal 3.5-5.1 [facility] Comment on above: Result Comment: Canc elled via OM: Order cancelled - Patient discharged Performed By: #### L 500.2500, L100.0100 ####[facility] [address] [place], [address] Basic Metabolic Profile (BMP) Normal 136-145 [facility] Comment on above: Result Comment: Canc elled via OM: Order cancelled - Patient discharged Performed By: #### L 500.2500, L100.0100 ####[facility] [address] [place], [address] CBC W/Diff, Automatedon 03-0 -2024 Absolute Neut Normal 2.0-7.7 [facility] Comment on above: Result Comment: Canc elled via OM: Order cancelled - Patient discharged Performed By: #### L 500.2500, L100.0100 ####[facility] [address] [place], [address] HCT Normal 37-47 [facility] Comment on above: Result Comment: Canc elled via OM: Order cancelled - Patient discharged Performed By: #### L 500.2500, L100.0100 ####[facility] [address] [place], [address] HGB Normal 12.0-15.0 [facility] Comment on above: Result Comment: Canc elled via OM: Order cancelled - Patient discharged Performed By: #### L 500.2500, L100.0100 ####[facility] [address] [place], [address] MCH Normal 27.0-32.0 [facility] Comment on above: Result Comment: Canc elled via OM: Order cancelled - Patient discharged Performed By: #### L 500.2500, L100.0100 ####[facility] [address] [place], [address] MCHC Normal 32-36 [facility] Comment on above: Result Comment: Canc elled via OM: Order cancelled - Patient discharged Performed By: #### L 500.2500, L100.0100 ####[facility] [address] [place], [address] MCV Normal 81-99 [facility] Comment on above: Result Comment: Canc elled via OM: Order cancelled - Patient discharged Performed By: #### L 500.2500, L100.0100 ####[facility] [address] [place], [address] NEUT% Normal 47-70 [facility] Comment on above: Result Comment: Canc elled via OM: Order cancelled - Patient discharged Performed By: #### L 500.2500, L100.0100 ####[facility] [address] [place], [address] PLT Normal 150-450 [facility] Comment on above: Result Comment: Canc elled via OM: Order cancelled - Patient discharged Performed By: #### L 500.2500, L100.0100 ####[facility] [address] [place], [address] RBC Normal 4.2-5.4 [facility] Comment on above: Result Comment: Canc elled via OM: Order cancelled - Patient discharged Performed By: #### L 500.2500, L100.0100 ####[facility] [address] [place], [address] RDW CV Normal 11.6-14.6 [facility] Comment on above: Result Comment: Canc elled via OM: Order cancelled - Patient discharged Performed By: #### L 500.2500, L100.0100 ####[facility] [address] [place], [address] RDW SD Normal 35.1-43.9 [facility] Comment on above: Result Comment: Canc elled via OM: Order cancelled - Patient discharged Performed By: #### L 500.2500, L100.0100 ####[facility] [address] [place], [address] WBC Normal 4.4-11.0 [facility] Comment on above: Result Comment: Canc elled via OM: Order cancelled - Patient discharged Performed By: #### L 500.2500, L100.0100 ####[facility] [address] [place], [address] CBC-Complete Blood Cnt No Di ffon 08-02-2024 Erythrocyte distribution width (RBC) [Ratio] 17.5 % High 11.6-14.6 [facility] Comment on above: Performed By: #### L 100.0500, L500.2500 ####[facility] [address] [place], [address] Hematocrit (Bld) [Volume fraction] 23.8 % Low 37-47 [facility] Comment on above: Performed By: #### L 100.0500, L500.2500 ####[facility] [address] [place], [address] Hemoglobin (Bld) [Mass/Vol] 7.1 g/dL Low 12.0-15.0 [facility] Comment on above: Performed By: #### L 100.0500, L500.2500 ####[facility] [address] [place], [address] MCH (RBC) [Entitic mass] 25.8 pg Low 27.0-32.0 [facility] Comment on above: Performed By: #### L 100.0500, L500.2500 ####[facility] [address] [place], [address] MCHC (RBC) [Mass/Vol] 29.8 g/dL Low 32-36 [facility] Comment on above: Performed By: #### L 100.0500, L500.2500 ####[facility] [address] [place], [address] MCV (RBC) [Entitic vol] 86.5 fL Normal 81-99 [facility] Comment on above: Performed By: #### L 100.0500, L500.2500 ####[facility] [address] [place], [address] Platelet mean volume (Bld) [Entitic vol] 9.6 fL Normal 6.2-12.0 [facility] Comment on above: Performed By: #### L 100.0500, L500.2500 ####[facility] [address] [place], [address] Platelets (Bld) [#/Vol] 284 10*3/uL Normal 150-450 [facility] Comment on above: Performed By: #### L 100.0500, L500.2500 ####[facility] [address] [place], [address] RBC (Bld) [#/Vol] 2.75 10*6/uL Low 4.2-5.4 [facility] Comment on above: Performed By: #### L 100.0500, L500.2500 ####[facility] [address] [place], [address] RDW SD 55.0 fl High 35.1-43.9 [facility] Comment on above: Performed By: #### L 100.0500, L500.2500 ####[facility] [address] [place], [address] WBC (Bld) [#/Vol] 11.7 10*3/uL High 4.4-11.0 [facility] Comment on above: Performed By: #### L 100.0500, L500.2500 ####[facility] [address] [place], [address] HH, Hemoglobin AND Hematocri ton 08-02-2024 Hematocrit (Bld) [Volume fraction] 26.9 % Low 37-47 [facility] Comment on above: Performed By: #### L 100.0600 ####[facility] [address] [place], [address] Hemoglobin (Bld) [Mass/Vol] 7.9 g/dL Low 12.0-15.0 [facility] Comment on above: Performed By: #### L 100.0600 ####[facility] [address] [place], [address] ,Urineon 08-02-2024 Beta HCG ( test) Ql (U) Negative Normal [facility] Comment on above: Order Comment: Anyon chacho has had a period within 12 [id number] Result Comment: Very dilute urine specimens, as indicated by a low specificgravity, may not contain service center representative levels of hCG.If is still suspected, a first morning urinespecimen should be collected 48 hours later and tested. Performed By: #### L 400.7600 ####[facility] [address] [place], [address] Urine testOrdered By: Nick Gallegos on 08-02-2024 HCG ( test) Ql (U) Negative [facility] Urine test Negative [facility] Basic Metabolic Profile (BMP )on 08-01-2024 BUN Normal 4-19 [facility] Comment on above: Result Comment: @CAN CELED Performed By: #### L 500.2500 ####[facility] [address] [place], [address] BUN/CRE Normal 10-20 [facility] Comment on above: Result Comment: @CAN CELED Performed By: #### L 500.2500 ####[facility] [address] [place], [address] Calcium Normal 7.6-11.0 [facility] Comment on above: Result Comment: @CAN CELED Performed By: #### L 500.2500 ####[facility] [address] [place], [address] CL Normal 98-108 [facility] Comment on above: Result Comment: @CAN CELED Performed By: #### L 500.2500 ####[facility] [address] [place], [address] CO2 Normal 21.0-32.0 [facility] Comment on above: Result Comment: @CAN CELED Performed By: #### L 500.2500 ####[facility] [address] [place], [address] CREAT,SERUM Normal 0.70-1.20 [facility] Comment on above: Result Comment: @CAN CELED Performed By: #### L 500.2500 ####[facility] [address] [place], [address] eGFR Normal >60 [facility] [facility] Comment on above: Result Comment: @CAN CELED Performed By: #### L 500.2500 ####[facility] [address] [place], [address] GAP Normal 5-15 [facility] Comment on above: Result Comment: @CAN CELED Performed By: #### L 500.2500 ####[facility] [address] [place], [address] GLU Normal 70-99 [facility] Comment on above: Result Comment: @CAN CELED Performed By: #### L 500.2500 ####[facility] [address] [place], [address] Potassium Normal 3.3-5.1 [facility] Comment on above: Result Comment: @CAN CELED Performed By: #### L 500.2500 ####[facility] [address] [place], [address] Basic Metabolic Profile (BMP) Normal 133-145 [facility] Comment on above: Result Comment: @CAN CELED Performed By: #### L 500.2500 ####[facility] [address] [place], [address] BUN/CRE 34.4 RATIO High 10-20 [facility] Comment on above: Performed By: #### L 500.2500, L100.0500 ####[facility] [address] [place], [address] Calcium [Mass/Vol] 8.8 mg/dL Normal 7.6-11.0 [facility] Comment on above: Performed By: #### L 500.2500, L100.0500 ####[facility] [address] [place], [address] Chloride [Moles/Vol] 97 mmol/L Low 98-108 [facility] Comment on above: Performed By: #### L 500.2500, L100.0500 ####[facility] [address] [place], [address] CO2 [Moles/Vol] 18.2 mmol/L Low 21.0-32.0 [facility] Comment on above: Performed By: #### L 500.2500, L100.0500 ####[facility] [address] [place], [address] Creatinine [Mass/Vol] 1.97 mg/dL High 0.70-1.20 [facility] Comment on above: Performed By: #### L 500.2500, L100.0500 ####[facility] [address] [place], [address] ECRCL 21.83 ml/min Low 50-250 [facility] Comment on above: Performed By: #### L 500.2500, L100.0500 ####[facility] [address] [place], [address] GAP 13 Normal 5-15 [facility] Comment on above: Performed By: #### L 500.2500, L100.0500 ####[facility] [address] [place], [address] GFR/1.73 sq M.predicted among non-blacks MDRD (S/P/Bld) [Vol rate/Area] 28 mL/min/{1.73_m2} Low >60 [facility] Comment on above: Result Comment: mL/m in/1.73m2 CKD-EPI Creatinine Equation (2020) Performed By: #### L 500.2500, L100.0500 ####[facility] [address] [place], [address] Glucose [Mass/Vol] 75 mg/dL Normal 70-99 [facility] Comment on above: Performed By: #### L 500.2500, L100.0500 ####[facility] [address] [place], [address] Potassium [Moles/Vol] 6.4 mmol/L Invalid Interpretation Code 3.3-5.1 [facility] Comment on above: Result Comment: Crit ical Result(s) Called at:0630 by:[facility]Results read back by same. Performed By: #### L 500.2500, L100.0500 ####[facility] [address] [place], [address] Sodium [Moles/Vol] 128 mmol/L Low 133-145 [facility] Comment on above: Performed By: #### L 500.2500, L100.0500 ####[facility] [address] [place], [address] Urea nitrogen [Mass/Vol] 68 mg/dL High 4-19 [facility] Comment on above: Performed By: #### L 500.2500, L100.0500 ####[facility] [address] [place], [address] BUN Normal 4-19 [facility] Comment on above: Result Comment: Canc elled via OM: Order cancelled - Patient discharged Performed By: #### L 500.2500, L100.0100 ####[facility] [address] [place], [address] BUN/CRE Normal 10-20 [facility] Comment on above: Result Comment: Canc elled via OM: Order cancelled - Patient discharged Performed By: #### L 500.2500, L100.0100 ####[facility] [address] [place], [address] Calcium Normal 7.6-11.0 [facility] Comment on above: Result Comment: Canc elled via OM: Order cancelled - Patient discharged Performed By: #### L 500.2500, L100.0100 ####[facility] [address] [place], [address] CL Normal 98-107 [facility] Comment on above: Result Comment: Canc elled via OM: Order cancelled - Patient discharged Performed By: #### L 500.2500, L100.0100 ####[facility] [address] [place], [address] CO2 Normal 21.0-32.0 [facility] Comment on above: Result Comment: Canc elled via OM: Order cancelled - Patient discharged Performed By: #### L 500.2500, L100.0100 ####[facility] [address] [place], [address] CREAT,SERUM Normal 0.70-1.20 [facility] Comment on above: Result Comment: Canc elled via OM: Order cancelled - Patient discharged Performed By: #### L 500.2500, L100.0100 ####[facility] [address] [place], [address] eGFR Normal >60 [facility] Comment on above: Result Comment: Canc elled via OM: Order cancelled - Patient discharged Performed By: #### L 500.2500, L100.0100 ####[facility] [address] [place], [address] GAP Normal 5-15 [facility] Comment on above: Result Comment: Canc elled via OM: Order cancelled - Patient discharged Performed By: #### L 500.2500, L100.0100 ####[facility] [address], [address] GLU Normal 70-99 [facility] Comment on above: Result Comment: Canc elled via OM: Order cancelled - Patient discharged Performed By: #### L 500.2500, L100.0100 ####[facility] [address] [place], [address] Potassium Normal 3.5-5.1 [facility] Comment on above: Result Comment: Canc elled via OM: Order cancelled - Patient discharged Performed By: #### L 500.2500, L100.0100 ####[facility] [address], [address] Basic Metabolic Profile (BMP) Normal 136-145 [facility] Comment on above: Result Comment: Canc elled via OM: Order cancelled - Patient discharged Performed By: #### L 500.2500, L100.0100 ####[facility] [address] [place], [address] CBC W/Diff, Automatedon 03-0 6-2024 Absolute Neut Normal 2.0-7.7 [facility] Comment on above: Result Comment: Canc elled via OM: Order cancelled - Patient discharged Performed By: #### L 500.2500, L100.0100 ####[facility] [address], [address] HCT Normal 37-47 [facility] Comment on above: Result Comment: Canc elled via OM: Order cancelled - Patient discharged Performed By: #### L 500.2500, L100.0100 ####[facility] [address] [place], [address] HGB Normal 12.0-15.0 [facility] Comment on above: Result Comment: Canc elled via OM: Order cancelled - Patient discharged Performed By: #### L 500.2500, L100.0100 ####[facility] [address] [place], [address] MCH Normal 27.0-32.0 [facility] Comment on above: Result Comment: Canc elled via OM: Order cancelled - Patient discharged Performed By: #### L 500.2500, L100.0100 ####[facility] [address] [place], [address] MCHC Normal 32-36 [facility] Comment on above: Result Comment: Canc elled via OM: Order cancelled - Patient discharged Performed By: #### L 500.2500, L100.0100 ####[facility] [address] [place], [address] MCV Normal 81-99 [facility] Comment on above: Result Comment: Canc elled via OM: Order cancelled - Patient discharged Performed By: #### L 500.2500, L100.0100 ####[facility] [address] [place], [address] NEUT% Normal 47-70 [facility] Comment on above: Result Comment: Canc elled via OM: Order cancelled - Patient discharged Performed By: #### L 500.2500, L100.0100 ####[facility] [address] [place], [address] PLT Normal 150-450 [facility] Comment on above: Result Comment: Canc elled via OM: Order cancelled - Patient discharged Performed By: #### L 500.2500, L100.0100 ####[facility] [address] [place], [address] RBC Normal 4.2-5.4 [facility] Comment on above: Result Comment: Canc elled via OM: Order cancelled - Patient discharged Performed By: #### L 500.2500, L100.0100 ####[facility] [address] [place], [address] RDW CV Normal 11.6-14.6 [facility] Comment on above: Result Comment: Canc elled via OM: Order cancelled - Patient discharged Performed By: #### L 500.2500, L100.0100 ####[facility] [address] [place], [address] RDW SD Normal 35.1-43.9 [facility] Comment on above: Result Comment: Canc elled via OM: Order cancelled - Patient discharged Performed By: #### L 500.2500, L100.0100 ####[facility] [address] [place], [address] WBC Normal 4.4-11.0 [facility] Comment on above: Result Comment: Canc elled via OM: Order cancelled - Patient discharged Performed By: #### L 500.2500, L100.0100 ####[facility] [address] [place], [address] CBC-Complete Blood Cnt No Di ffon 08-01-2024 Erythrocyte distribution width (RBC) [Ratio] 17.6 % High 11.6-14.6 [facility] Comment on above: Performed By: #### L 500.2500, L100.0500 ####[facility] [address] [place], [address] Hematocrit (Bld) [Volume fraction] 27.2 % Low 37-47 [facility] Comment on above: Performed By: #### L 500.2500, L100.0500 ####[facility] [address] [place], [address] Hemoglobin (Bld) [Mass/Vol] 8.1 g/dL Low 12.0-15.0 [facility] Comment on above: Performed By: #### L 500.2500, L100.0500 ####[facility] [address] [place], [address] MCH (RBC) [Entitic mass] 26.0 pg Low 27.0-32.0 [facility] Comment on above: Performed By: #### L 500.2500, L100.0500 ####[facility] [address] [place], [address] MCHC (RBC) [Mass/Vol] 29.8 g/dL Low 32-36 [facility] Comment on above: Performed By: #### L 500.2500, L100.0500 ####[facility] [address] [place], [address] MCV (RBC) [Entitic vol] 87.5 fL Normal 81-99 [facility] Comment on above: Performed By: #### L 500.2500, L100.0500 ####[facility] [address] [place], [address] Platelet mean volume (Bld) [Entitic vol] 9.3 fL Normal 6.2-12.0 [facility] Comment on above: Performed By: #### L 500.2500, L100.0500 ####[facility] [address] [place], [address] Platelets (Bld) [#/Vol] 230 10*3/uL Normal 150-450 [facility] Comment on above: Performed By: #### L 500.2500, L100.0500 ####[facility] [address] [place], [address] RBC (Bld) [#/Vol] 3.11 10*6/uL Low 4.2-5.4 [facility] Comment on above: Performed By: #### L 500.2500, L100.0500 ####[facility] [address] [place], [address] RDW SD 56.1 fl High 35.1-43.9 [facility] Comment on above: Performed By: #### L 500.2500, L100.0500 ####[facility] [address] [place], [address] WBC (Bld) [#/Vol] 17.7 10*3/uL High 4.4-11.0 [facility] Comment on above: Performed By: #### L 500.2500, L100.0500 ####[facility] [address] [place], [address] Consultation - Nephrologyon 08-01-2024 Consultation - Nephrology Normal [facility] MR/CON.PCM.GIon 08-01-2024 MR/CON.PCM.GI Normal [facility] Abdomen/Pelvis W IV Cont ONL Yon 07-31-2024 Abdomen/Pelvis W IV Cont ONLY Normal [facility] Activated partial thrombopla stin time (aPTT) in platelet poor plasma by coagulation aOrdered By: Noah Avery on 07-31-2024 aPTT Coag (PPP) [Time] 42.1 s High 24.1-36.2 [facility] [id number] 07-31-2024 ANTIBODY ID Normal [facility] Comment on above: Order Comment: HGI Result Comment: CFYA Performed By: #### B KENDRA GALINDO, [id number] ####[facility] [address] [place], [address] BRCon 07-31-2024 RC Normal [facility] Comment on above: Result Comment: [id number] ON RC XM [id number] ON RC XM COMPATIBLE Performed By: #### B KENDRA GALINDO, [id number] ####[facility] [address] [place], [address] Basic Metabolic Profile (BMP )on 07-31-2024 BUN Normal 4-19 [facility] Comment on above: Result Comment: Canc elled via OM: Order cancelled - Patient discharged Performed By: #### L 100.0100, L500.2500 ####[facility] [address] [place], [address] BUN/CRE Normal 10-20 [facility] Comment on above: Result Comment: Canc elled via OM: Order cancelled - Patient discharged Performed By: #### L 100.0100, L500.2500 ####[facility] [address] [place], [address] Calcium Normal 7.6-11.0 [facility] Comment on above: Result Comment: Canc elled via OM: Order cancelled - Patient discharged Performed By: #### L 100.0100, L500.2500 ####[facility] [address] [place], [address] CL Normal 98-107 [facility] Comment on above: Result Comment: Canc elled via OM: Order cancelled - Patient discharged Performed By: #### L 100.0100, L500.2500 ####[facility] [address] [place], [address] CO2 Normal 21.0-32.0 [facility] Comment on above: Result Comment: Canc elled via OM: Order cancelled - Patient discharged Performed By: #### L 100.0100, L500.2500 ####[facility] [address] [place], [address] CREAT,SERUM Normal 0.70-1.20 [facility] Comment on above: Result Comment: Canc elled via OM: Order cancelled - Patient discharged Performed By: #### L 100.0100, L500.2500 ####[facility] [address] [place], [address] eGFR Normal >60 [facility] Comment on above: Result Comment: Canc elled via OM: Order cancelled - Patient discharged Performed By: #### L 100.0100, L500.2500 ####[facility] [address], [address] GAP Normal 5-15 [facility] Comment on above: Result Comment: Canc elled via OM: Order cancelled - Patient discharged Performed By: #### L 100.0100, L500.2500 ####[facility] [address] [place], [address] GLU Normal 70-99 [facility] Comment on above: Result Comment: Canc elled via OM: Order cancelled - Patient discharged Performed By: #### L 100.0100, L500.2500 ####[facility] [address] [place], [address] Potassium Normal 3.5-5.1 [facility] Comment on above: Result Comment: Canc elled via OM: Order cancelled - Patient discharged Performed By: #### L 100.0100, L500.2500 ####[facility] [address] [place], [address] Basic Metabolic Profile (BMP) Normal 136-145 [facility] Comment on above: Result Comment: Canc elled via OM: Order cancelled - Patient discharged Performed By: #### L 100.0100, L500.2500 ####[facility] [address] [place], [address] CBC W/Diff, Automatedon 03-0 5-2024 Absolute Lymph 0.40 X10 3/uL Low 0.83-4.51 [facility] Comment on above: Performed By: #### L 100.0100, L501.2450, L500.4050 ####[facility] [address] [place], [address] Absolute Neut 9.3 X10 3/uL High 2.0-7.7 [facility] Comment on above: Performed By: #### L 100.0100, L501.2450, L500.4050 ####[facility] [address] [place], [address] Basophils/100 WBC (Bld) 0.3 % Normal 0-1 [facility] Comment on above: Performed By: #### L 100.0100, L501.2450, L500.4050 ####[facility] [address] [place], [address] Eosinophils/100 WBC (Bld) 0.5 % Normal 0-5 [facility] Comment on above: Performed By: #### L 100.0100, L501.2450, L500.4050 ####[facility] [address] [place], [address] Erythrocyte distribution width (RBC) [Ratio] 17.3 % High 11.6-14.6 [facility] Comment on above: Performed By: #### L 100.0100, L501.2450, L500.4050 ####[facility] [address] [place], [address] Hematocrit (Bld) [Volume fraction] 25.7 % Low 37-47 [facility] Comment on above: Performed By: #### L 100.0100, L501.2450, L500.4050 ####[facility] [address] [place], [address] Hemoglobin (Bld) [Mass/Vol] 7.7 g/dL Low 12.0-15.0 [facility] Comment on above: Performed By: #### L 100.0100, L501.2450, L500.4050 ####[facility] [address] [place], [address] IG% 3.200 High 0.0-0.9 [facility] Comment on above: Result Comment: IG% - Immature Granulocytes (promyelocytes, myelocytes andmetamyelocytes) > 1% indicates that a LEFT SHIFT is Present. Performed By: #### L 100.0100, L501.2450, L500.4050 ####[facility] [address] [place], [address] Lymphocytes/100 WBC (Bld) 3.7 % Low 19-41 [facility] Comment on above: Performed By: #### L 100.0100, L501.2450, L500.4050 ####[facility] [address] [place], [address] MCH (RBC) [Entitic mass] 25.7 pg Low 27.0-32.0 [facility] Comment on above: Performed By: #### L 100.0100, L501.2450, L500.4050 ####[facility] [address] [place], [address] MCHC (RBC) [Mass/Vol] 30.0 g/dL Low 32-36 [facility] Comment on above: Performed By: #### L 100.0100, L501.2450, L500.4050 ####[facility] [address] [place], [address] MCV (RBC) [Entitic vol] 85.7 fL Normal 81-99 [facility] Comment on above: Performed By: #### L 100.0100, L501.2450, L500.4050 ####[facility] [address] [place], [address] Monocytes/100 WBC (Bld) 5.8 % Normal 0-10 [facility] Comment on above: Performed By: #### L 100.0100, L501.2450, L500.4050 ####[facility] [address] [place], [address] Neutrophils/100 WBC (Bld) 86.5 % High 47-70 [facility] Comment on above: Performed By: #### L 100.0100, L501.2450, L500.4050 ####[facility] [address] [place], [address] Nucleated RBC (Bld) [#/Vol] 0 10*3/uL Normal 0-5 [facility] Comment on above: Performed By: #### L 100.0100, L501.2450, L500.4050 ####[facility] [address] [place], [address] Platelet mean volume (Bld) [Entitic vol] 9.7 fL Normal 6.2-12.0 [facility] Comment on above: Performed By: #### L 100.0100, L501.2450, L500.4050 ####[facility] [address] [place], [address] Platelets (Bld) [#/Vol] 169 10*3/uL Normal 150-450 [facility] Comment on above: Performed By: #### L 100.0100, L501.2450, L500.4050 ####[facility] [address] [place], [address] RBC (Bld) [#/Vol] 3.00 10*6/uL Low 4.2-5.4 [facility] Comment on above: Performed By: #### L 100.0100, L501.2450, L500.4050 ####[facility] [address] [place], [address] RDW SD 53.7 fl High 35.1-43.9 [facility] Comment on above: Performed By: #### L 100.0100, L501.2450, L500.4050 ####[facility] [address] [place], [address] WBC (Bld) [#/Vol] 10.7 10*3/uL Normal 4.4-11.0 [facility] Comment on above: Performed By: #### L 100.0100, L501.2450, L500.4050 ####[facility] [address] [place], [address] Absolute Neut Normal 2.0-7.7 [facility] Comment on above: Result Comment: Canc elled via OM: Order cancelled - Patient discharged Performed By: #### L 100.0100, L500.2500 ####[facility] [address] [place], [address] HCT Normal 37-47 [facility] Comment on above: Result Comment: Canc elled via OM: Order cancelled - Patient discharged Performed By: #### L 100.0100, L500.2500 ####[facility] [address] [place], [address] HGB Normal 12.0-15.0 [facility] Comment on above: Result Comment: Canc elled via OM: Order cancelled - Patient discharged Performed By: #### L 100.0100, L500.2500 ####[facility] [address] [place], [address] MCH Normal 27.0-32.0 [facility] Comment on above: Result Comment: Canc elled via OM: Order cancelled - Patient discharged Performed By: #### L 100.0100, L500.2500 ####[facility] [address] [place], [address] MCHC Normal 32-36 [facility] Comment on above: Result Comment: Canc elled via OM: Order cancelled - Patient discharged Performed By: #### L 100.0100, L500.2500 ####[facility] [address] [place], [address] MCV Normal 81-99 [facility] Comment on above: Result Comment: Canc elled via OM: Order cancelled - Patient discharged Performed By: #### L 100.0100, L500.2500 ####[facility] [address] [place], [address] NEUT% Normal 47-70 [facility] Comment on above: Result Comment: Canc elled via OM: Order cancelled - Patient discharged Performed By: #### L 100.0100, L500.2500 ####[facility] [address] [place], [address] PLT Normal 150-450 [facility] Comment on above: Result Comment: Canc elled via OM: Order cancelled - Patient discharged Performed By: #### L 100.0100, L500.2500 ####[facility] [address] [place], [address] RBC Normal 4.2-5.4 [facility] Comment on above: Result Comment: Canc elled via OM: Order cancelled - Patient discharged Performed By: #### L 100.0100, L500.2500 ####[facility] [address] [place], [address] RDW CV Normal 11.6-14.6 [facility] Comment on above: Result Comment: Canc elled via OM: Order cancelled - Patient discharged Performed By: #### L 100.0100, L500.2500 ####[facility] [address] [place], [address] RDW SD Normal 35.1-43.9 [facility] Comment on above: Result Comment: Canc elled via OM: Order cancelled - Patient discharged Performed By: #### L 100.0100, L500.2500 ####[facility] [address] [place], [address] WBC Normal 4.4-11.0 [facility] Comment on above: Result Comment: Canc elled via OM: Order cancelled - Patient discharged Performed By: #### L 100.0100, L500.2500 ####[facility] [address] [place], [address] Comprehensive Metabolic Prof nvon 07-31-2024 Albumin [Mass/Vol] 2.3 g/dL Low 3.4-4.8 [facility] Comment on above: Performed By: #### L 100.0100, L501.2450, L500.4050 ####[facility] [address] [place], [address] Albumin/Globulin [Mass ratio] 0.6 {ratio} Low 0.9-2.4 [facility] Comment on above: Performed By: #### L 100.0100, L501.2450, L500.4050 ####[facility] [address] [place], [address] ALK PHOS 66 U/L Normal 35-104 [facility] Comment on above: Performed By: #### L 100.0100, L501.2450, L500.4050 ####[facility] [address] [place], [address] ALT [Catalytic activity/Vol] U/L Normal <=34 [facility] Comment on above: Performed By: #### L 100.0100, L501.2450, L500.4050 ####[facility] [address] [place], [address] AST [Catalytic activity/Vol] 20 U/L Normal <=31 [facility] Comment on above: Performed By: #### L 100.0100, L501.2450, L500.4050 ####[facility] [address] [place], [address] Bilirubin [Mass/Vol] 0.19 mg/dL Normal 0.00-1.30 [facility] Comment on above: Performed By: #### L 100.0100, L501.2450, L500.4050 ####[facility] [address] [place], [address] BUN/CRE 30.7 RATIO High 10-20 [facility] Comment on above: Performed By: #### L 100.0100, L501.2450, L500.4050 ####[facility] [address] [place], [address] Calcium [Mass/Vol] 9.0 mg/dL Normal 7.6-11.0 [facility] Comment on above: Performed By: #### L 100.0100, L501.2450, L500.4050 ####[facility] [address] [place], [address] Chloride [Moles/Vol] 95 mmol/L Low 98-108 [facility] Comment on above: Performed By: #### L 100.0100, L501.2450, L500.4050 ####[facility] [address] [place], [address] CO2 [Moles/Vol] 24.7 mmol/L Normal 21.0-32.0 [facility] Comment on above: Performed By: #### L 100.0100, L501.2450, L500.4050 ####[facility] [address] [place], [address] Creatinine [Mass/Vol] 1.88 mg/dL High 0.70-1.20 [facility] Comment on above: Performed By: #### L 100.0100, L501.2450, L500.4050 ####[facility] [address] [place], [address] ECRCL 24.29 ml/min Low 50-250 [facility] Comment on above: Performed By: #### L 100.0100, L501.2450, L500.4050 ####[facility] [address] [place], [address] GAP 10 Normal 5-15 [facility] Comment on above: Performed By: #### L 100.0100, L501.2450, L500.4050 ####[facility] [address] [place], [address] GFR/1.73 sq M.predicted among non-blacks MDRD (S/P/Bld) [Vol rate/Area] 30 mL/min/{1.73_m2} Low >60 [facility] Comment on above: Result Comment: mL/m in/1.73m2 CKD-EPI Creatinine Equation (2020) Performed By: #### L 100.0100, L501.2450, L500.4050 ####[facility] [address] [place], [address] Globulin (S) [Mass/Vol] 3.6 g/dL Normal 2.2-4.2 [facility] Comment on above: Performed By: #### L 100.0100, L501.2450, L500.4050 ####[facility] [address] [place], [address] Glucose [Mass/Vol] 110 mg/dL High 70-99 [facility] Comment on above: Performed By: #### L 100.0100, L501.2450, L500.4050 ####[facility] [address] [place], [address] Potassium [Moles/Vol] 5.7 mmol/L High 3.3-5.1 [facility] Comment on above: Performed By: #### L 100.0100, L501.2450, L500.4050 ####[facility] [address] [place], [address] Sodium [Moles/Vol] 129 mmol/L Low 133-145 [facility] Comment on above: Performed By: #### L 100.0100, L501.2450, L500.4050 ####[facility] [address] [place], [address] T PROT 5.9 g/dL Normal 5.9-8.4 [facility] Comment on above: Performed By: #### L 100.0100, L501.2450, L500.4050 ####[facility] [address] [place], [address] Urea nitrogen [Mass/Vol] 58 mg/dL High 4-19 [facility] Comment on above: Performed By: #### L 100.0100, L501.2450, L500.4050 ####[facility] [address] [place], [address] Emergency Department Summary on 07-31-2024 Emergency Department Summary Normal [facility] H AND P Exam - Hospitaliston 07-31-2024 H&P Exam - Hospitalist Normal [facility] International normalized rat io (INR) calculationOrdered By: Noah Avery on 07-31-2024 International normalized ratio (INR) calculation 1.2 [facility] Lipaseon 07-31-2024 Lipase [Catalytic activity/Vol] 34 U/L Normal 13-75 [facility] Comment on above: Result Comment: Jorge L patterson note:LIPASE revised reference range effective 22.New Lipase methodology. Expected to produce lower valuesthan the previous assay method.NEW Reference Range: 13 - 75 U/L Performed By: #### L 100.0100, L501.2450, L500.4050 ####[facility] [address] [place], [address] Lipase measurementOrdered By : Noah Avery on 07-31-2024 Lipase measurement 34 U/L 13-75 [facility] Partial Thromboplast Timeon 07-31-2024 aPTT Coag (Bld) [Time] 42.1 s High 24.1-36.2 [facility] Comment on above: Performed By: #### L 300.4310, L300.3900 ####[facility] [address] [place], [address] Prothrombin Time w/INRon INR Coag (PPP) [Relative time] 1.2 {INR} Normal [facility] Comment on above: Performed By: #### L 300.4310, L300.3900 ####[facility] [address] [place], [address] PT Coag (PPP) [Time] 15.3 s High 11.7-14.9 [facility] Comment on above: Performed By: #### L 300.4310, L300.3900 ####[facility] [address] [place], [address] Prothrombin timeOrdered By: Noah Avery on 07-31-2024 PT Coag (PPP) [Time] 15.3 s High 11.7-14.9 [facility] Prothrombin time 15.3 SECONDS High 11.7-14.9 [facility] Type AND Screenon 07-31-2024 ABO and Rh group Nom (Bld) Blood group O Rh(D) positive Normal [facility] Comment on above: Order Comment: HGI Performed By: #### B TS, BRC, [id number] ####[facility] [address] [place], [address] aPTT Coag (PPP) [Time]Ordere d By: Noah Avery on 07-31-2024 Activated partial thromboplastin time (aPTT) in platelet poor plasma by coagulation a 42.1 Seconds High 24.1-36.2 [facility] Anion gap [Moles/Vol]Ordered By: Millie Massey on 07-30-2024 Anion gap in Serum or Plasma 11 10-10 [facility] Anion gap in Serum or Plasma Ordered By: Millie Massey on 07-30-2024 Anion gap [Moles/Vol] 11 mmol/L 10-10 [facility] BUN/creatinine ratioOrdered By: Millie Massey on 07-30-2024 Urea nitrogen/Creatinine [Mass ratio] 26.1 mg/mg High 10- [facility] BUN/creatinine ratio 26.1 RATIO High 10-20 [facility] Basic Metabolic Profile (BMP )on 07-30-2024 BUN/CRE 26.1 RATIO High 10-20 [facility] Comment on above: Order Comment: 103.2 Performed By: #### L 506.1001, L503.0106, L500.2500, L500.4100, L501.5200, L100.0500, L501.9520 ####[facility] [address] [place], [address] Calcium [Mass/Vol] 8.6 mg/dL Normal 7.6-11.0 [facility] Comment on above: Order Comment: 103.2 Performed By: #### L 506.1001, L503.0106, L500.2500, L500.4100, L501.5200, L100.0500, L501.9520 ####[facility] [address] [place], [address] Chloride [Moles/Vol] 98 mmol/L Normal 98-108 [facility] Comment on above: Order Comment: 103.2 Performed By: #### L 506.1001, L503.0106, L500.2500, L500.4100, L501.5200, L100.0500, L501.9520 ####[facility] [address] [place], [address] CO2 [Moles/Vol] 24.2 mmol/L Normal 21.0-32.0 [facility] Comment on above: Order Comment: 103.2 Performed By: #### L 506.1001, L503.0106, L500.2500, L500.4100, L501.5200, L100.0500, L501.9520 ####[facility] [address] [place], [address] Creatinine [Mass/Vol] 1.47 mg/dL High 0.70-1.20 [facility] Comment on above: Order Comment: 103.2 Performed By: #### L 506.1001, L503.0106, L500.2500, L500.4100, L501.5200, L100.0500, L501.9520 ####[facility] [address] [place], [address] GAP 11 Normal 5-15 [facility] Comment on above: Order Comment: 103.2 Performed By: #### L 506.1001, L503.0106, L500.2500, L500.4100, L501.5200, L100.0500, L501.9520 ####[facility] [address] [place], [address] GFR/1.73 sq M.predicted among non-blacks MDRD (S/P/Bld) [Vol rate/Area] 40 mL/min/{1.73_m2} Low >60 [facility] Comment on above: Order Comment: 103.2 Result Comment: mL/m in/1.73m2 CKD-EPI Creatinine Equation (2020) Performed By: #### L 506.1001, L503.0106, L500.2500, L500.4100, L501.5200, L100.0500, L501.9520 ####[facility] [address] [place], [address] Glucose [Mass/Vol] 96 mg/dL Normal 70-99 [facility] Comment on above: Order Comment: 103.2 Performed By: #### L 506.1001, L503.0106, L500.2500, L500.4100, L501.5200, L100.0500, L501.9520 ####[facility] [address] [place], [address] Potassium [Moles/Vol] 4.4 mmol/L Normal 3.3-5.1 [facility] Comment on above: Order Comment: 103.2 Performed By: #### L 506.1001, L503.0106, L500.2500, L500.4100, L501.5200, L100.0500, L501.9520 ####[facility] [address] [place], [address] Sodium [Moles/Vol] 133 mmol/L Normal 133-145 [facility] Comment on above: Order Comment: 103.2 Performed By: #### L 506.1001, L503.0106, L500.2500, L500.4100, L501.5200, L100.0500, L501.9520 ####[facility] [address] [place], [address] Urea nitrogen [Mass/Vol] 38 mg/dL High 4-19 [facility] Comment on above: Order Comment: 103.2 Performed By: #### L 506.1001, L503.0106, L500.2500, L500.4100, L501.5200, L100.0500, L501.9520 ####[facility] [address] [place], [address] BUN Normal -19 [facility] Comment on above: Result Comment: Canc elled via OM: Order cancelled - Patient discharged Performed By: #### L 500.2500, L100.0100 ####[facility] [address] [place], [address] BUN/CRE Normal 10-20 [facility] Comment on above: Result Comment: Canc elled via OM: Order cancelled - Patient discharged Performed By: #### L 500.2500, L100.0100 ####[facility] [address] [place], [address] Calcium Normal 7.6-11.0 [facility] Comment on above: Result Comment: Canc elled via OM: Order cancelled - Patient discharged Performed By: #### L 500.2500, L100.0100 ####[facility] [address] [place], [address] CL Normal 98-107 [facility] Comment on above: Result Comment: Canc elled via OM: Order cancelled - Patient discharged Performed By: #### L 500.2500, L100.0100 ####[facility] [address] [place], [address] CO2 Normal 21.0-32.0 [facility] Comment on above: Result Comment: Canc elled via OM: Order cancelled - Patient discharged Performed By: #### L 500.2500, L100.0100 ####[facility] [address] [place], [address] CREAT,SERUM Normal 0.70-1.20 [facility] Comment on above: Result Comment: Canc elled via OM: Order cancelled - Patient discharged Performed By: #### L 500.2500, L100.0100 ####[facility] [address] [place], [address] eGFR Normal >60 [facility] Comment on above: Result Comment: Canc elled via OM: Order cancelled - Patient discharged Performed By: #### L 500.2500, L100.0100 ####[facility] [address] [place], [address] GAP Normal 5-15 [facility] Comment on above: Result Comment: Canc elled via OM: Order cancelled - Patient discharged Performed By: #### L 500.2500, L100.0100 ####[facility] [address] [place], [address] GLU Normal 70-99 [facility] Comment on above: Result Comment: Canc elled via OM: Order cancelled - Patient discharged Performed By: #### L 500.2500, L100.0100 ####[facility] [address] [place], [address] Potassium Normal 3.5-5.1 [facility] Comment on above: Result Comment: Canc elled via OM: Order cancelled - Patient discharged Performed By: #### L 500.2500, L100.0100 ####[facility] [address] [place], [address] Basic Metabolic Profile (BMP) Normal 136-145 [facility] Comment on above: Result Comment: Canc elled via OM: Order cancelled - Patient discharged Performed By: #### L 500.2500, L100.0100 ####[facility] [address] [place], [address] CBC W/Diff, Automatedon 03-0 -2024 Absolute Neut Normal 2.0-7.7 [facility] Comment on above: Result Comment: Canc elled via OM: Order cancelled - Patient discharged Performed By: #### L 500.2500, L100.0100 ####[facility] [address] [place], [address] HCT Normal 37-47 [facility] Comment on above: Result Comment: Canc elled via OM: Order cancelled - Patient discharged Performed By: #### L 500.2500, L100.0100 ####[facility] [address] [place], [address] HGB Normal 12.0-15.0 [facility] Comment on above: Result Comment: Canc elled via OM: Order cancelled - Patient discharged Performed By: #### L 500.2500, L100.0100 ####[facility] [address] [place], [address] MCH Normal 27.0-32.0 [facility] Comment on above: Result Comment: Canc elled via OM: Order cancelled - Patient discharged Performed By: #### L 500.2500, L100.0100 ####[facility] [address] [place], [address] MCHC Normal 32-36 [facility] Comment on above: Result Comment: Canc elled via OM: Order cancelled - Patient discharged Performed By: #### L 500.2500, L100.0100 ####[facility] [address], [address] MCV Normal 81-99 [facility] Comment on above: Result Comment: Canc elled via OM: Order cancelled - Patient discharged Performed By: #### L 500.2500, L100.0100 ####[facility] [address] [place], [address] NEUT% Normal 47-70 [facility] Comment on above: Result Comment: Canc elled via OM: Order cancelled - Patient discharged Performed By: #### L 500.2500, L100.0100 ####[facility] [address] [place], [address] PLT Normal 150-450 [facility] Comment on above: Result Comment: Canc elled via OM: Order cancelled - Patient discharged Performed By: #### L 500.2500, L100.0100 ####[facility] [address] [place], [address] RBC Normal 4.2-5.4 [facility] Comment on above: Result Comment: Canc elled via OM: Order cancelled - Patient discharged Performed By: #### L 500.2500, L100.0100 ####[facility] [address] [place], [address] RDW CV Normal 11.6-14.6 [facility] Comment on above: Result Comment: Canc elled via OM: Order cancelled - Patient discharged Performed By: #### L 500.2500, L100.0100 ####[facility] [address] [place], [address] RDW SD Normal 35.1-43.9 [facility] Comment on above: Result Comment: Canc elled via OM: Order cancelled - Patient discharged Performed By: #### L 500.2500, L100.0100 ####[facility] [address] [place], [address] WBC Normal 4.4-11.0 [facility] Comment on above: Result Comment: Canc elled via OM: Order cancelled - Patient discharged Performed By: #### L 500.2500, L100.0100 ####[facility] [address] [place], [address] CBC-Complete Blood Cnt No Di ffon 07-30-2024 Erythrocyte distribution width (RBC) [Ratio] 17.2 % High 11.6-14.6 [facility] Comment on above: Order Comment: 103.2 Performed By: #### L 506.1001, L503.0106, L500.2500, L500.4100, L501.5200, L100.0500, L501.9520 ####[facility] [address] [place], [address] Hematocrit (Bld) [Volume fraction] 26.4 % Low 37-47 [facility] Comment on above: Order Comment: 103.2 Performed By: #### L 506.1001, L503.0106, L500.2500, L500.4100, L501.5200, L100.0500, L501.9520 ####[facility] [address] [place], [address] Hemoglobin (Bld) [Mass/Vol] 7.8 g/dL Low 12.0-15.0 [facility] Comment on above: Order Comment: 103.2 Performed By: #### L 506.1001, L503.0106, L500.2500, L500.4100, L501.5200, L100.0500, L501.9520 ####[facility] [address] [place], [address] MCH (RBC) [Entitic mass] 25.7 pg Low 27.0-32.0 [facility] Comment on above: Order Comment: 103.2 Performed By: #### L 506.1001, L503.0106, L500.2500, L500.4100, L501.5200, L100.0500, L501.9520 ####[facility] [address] [place], [address] MCHC (RBC) [Mass/Vol] 29.5 g/dL Low 32-36 [facility] Comment on above: Order Comment: 103.2 Performed By: #### L 506.1001, L503.0106, L500.2500, L500.4100, L501.5200, L100.0500, L501.9520 ####[facility] [address] [place], [address] MCV (RBC) [Entitic vol] 87.1 fL Normal 81-99 [facility] Comment on above: Order Comment: 103.2 Performed By: #### L 506.1001, L503.0106, L500.2500, L500.4100, L501.5200, L100.0500, L501.9520 ####[facility] [address] [place], [address] Platelet mean volume (Bld) [Entitic vol] 9.0 fL Normal 6.2-12.0 [facility] Comment on above: Order Comment: 103.2 Performed By: #### L 506.1001, L503.0106, L500.2500, L500.4100, L501.5200, L100.0500, L501.9520 ####[facility] [address] [place], [address] Platelets (Bld) [#/Vol] 213 10*3/uL Normal 150-450 [facility] Comment on above: Order Comment: 103.2 Performed By: #### L 506.1001, L503.0106, L500.2500, L500.4100, L501.5200, L100.0500, L501.9520 ####[facility] [address] [place], [address] RBC (Bld) [#/Vol] 3.03 10*6/uL Low 4.2-5.4 [facility] Comment on above: Order Comment: 103.2 Performed By: #### L 506.1001, L503.0106, L500.2500, L500.4100, L501.5200, L100.0500, L501.9520 ####[facility] [address] [place], [address] RDW SD 54.9 fl High 35.1-43.9 [facility] Comment on above: Order Comment: 103.2 Performed By: #### L 506.1001, L503.0106, L500.2500, L500.4100, L501.5200, L100.0500, L501.9520 ####[facility] [address] [place], [address] WBC (Bld) [#/Vol] 10.8 10*3/uL Normal 4.4-11.0 [facility] Comment on above: Order Comment: 103.2 Performed By: #### L 506.1001, L503.0106, L500.2500, L500.4100, L501.5200, L100.0500, L501.9520 ####[facility] [address] [place], [place], [phone] Calcium [Mass/Vol]Ordered By : Millie Massey on 07-30-2024 Serum or plasma calcium measurement (mass/volume) 8.6 mg/dL 7.6-11.0 [facility] Calculated very low density lipoprotein (VLDL) cholesterol measurementOrdered By: Millie Massey on 07-30-2024 Calculated very low density lipoprotein (VLDL) cholesterol measurement 16 mg/dL 5-40 [facility] Calculated very low density lipoprotein (VLDL) cholesterol measurement 16 mg/dL -40 [facility] Carbon dioxide, total [Moles /volume] in Central venous bloodOrdered By: Millie Massey on 07-30-2024 CO2 [Moles/Vol] 24.2 mmol/L 21.0-32.0 [facility] Carbon dioxide, total [Moles/volume] in Central venous blood 24.2 mmol/L 21.0-32.0 [facility] Chloride assayOrdered By: Carter Massey on 07-30-2024 Chloride [Moles/Vol] 98 mmol/L 98-108 [facility] Chloride assay 98 mmol/L 98-108 [facility] Cholesterol [Mass/Vol]Ordere d By: Millie Massey on 07-30-2024 Serum or plasma cholesterol measurement (mass/volume) 51 mg/dL <201 [facility] Cholesterol in HDL [Mass/Vol ]Ordered By: Millie Massey on 07-30-2024 Serum or plasma cholesterol in HDL measurement (mass/volume) 22 mg/dL Low >40 [facility] Cobalamin (Vitamin B12) [Mas s/Vol]Ordered By: Millie Massey on 07-30-2024 Vitamin B12 ser/plas 452 pg/mL 180-914 [facility] Creatinine [Mass/Vol]Ordered By: Millie Massey on 07-30-2024 Serum creatinine measurement (mass/volume) 1.47 mg/dL High 0.70-1.20 [facility] Erythrocyte distribution wid th (RBC) [Ratio]Ordered By: Millie Massey on 07-30-2024 Erythrocyte distribution width ratio 17.2 % High 11.6-14.6 [facility] Erythrocyte distribution wid th ratioOrdered By: Millie Massey on 07-30-2024 Erythrocyte distribution width (RBC) [Ratio] 17.2 % High 11.6-14.6 [facility] Erythrocyte distribution wid th standard deviationOrdered By: Millie Massey on 07-30-2024 Erythrocyte distribution width (RBC) [Ratio] 54.9 fl High 35.1-43.9 [facility] Erythrocyte distribution width standard deviation 54.9 fl High 35.1-43.9 [facility] GFR/1.73 sq M.predicted víctor g non-blacks MDRD (S/P/Bld) [Vol rate/Area]Ordered By: Millie Massey on 07-30-2024 Glomerular filtration rate (GFR) estimation/1.73 sq m using serum, plasma, or whole b 40 Low >60 [facility] Glomerular filtration rate ( GFR) estimation/1.73 sq m using serum, plasma, or whole bOrdered By: Millie Massey on 07-30-2024 GFR/1.73 sq M.predicted among non-blacks MDRD (S/P/Bld) [Vol rate/Area] 40 mL/min/{1.73_m2} Low >60 [facility] Glucose [Mass/Vol]Ordered By : Millie Massey on 07-30-2024 Serum glucose measurement (mass/volume) 96 mg/dL 70-99 [facility] Hematocrit Auto (Bld) [Volum e fraction]Ordered By: Millie Massey on 07-30-2024 Hematocrit (Bld) [Volume fraction] 26.4 % Low 37-47 [facility] Automated blood hematocrit (percentage) 26.4 % Low 37-47 [facility] Hemoglobin measurementOrdere d By: Millie Massey on 07-30-2024 Hemoglobin (Bld) [Mass/Vol] 7.8 g/dL Low 12.0-15.0 [facility] Hemoglobin measurement 7.8 g/dL Low 12.0-15.0 [facility] L503.0106on 07-30-2024 Cobalamin (Vitamin B12) [Mass/Vol] 452 pg/mL Normal 180-914 [facility] Comment on above: Order Comment: 103.2 Performed By: #### L 506.1001, L503.0106, L500.2500, L500.4100, L501.5200, L100.0500, L501.9520 ####[facility] [address] [place], [address] L506.1001on 07-30-2024 Vitamin D 25-OH 27.8 ng/mL Low 30-100 [facility] Comment on above: Order Comment: 103.2 Result Comment: Kelly min D StatusDeficiency: <20 ng/mL (50nmol/L)Insufficiency: 20-30 ng/mL (50-75 nmol/L)Sufficiency: 30-100 ng/mL (75-250 nmol/L)Toxicity: >100 ng/mL (>250 nmol/L) Performed By: #### L 506.1001, L503.0106, L500.2500, L500.4100, L501.5200, L100.0500, L501.9520 ####[facility] [address] [place], [address] LDL calc ser/plasOrdered By: Millie Massey on 07-30-2024 Cholesterol in LDL [Mass/Vol] 13 mg/dL [facility] LDL calc ser/plas 13 mg/dL [facility] Lipid Profileon 07-30-2024 CHOL:HDL 2.32 Normal [facility] Comment on above: Order Comment: 103.2 Performed By: #### L 506.1001, L503.0106, L500.2500, L500.4100, L501.5200, L100.0500, L501.9520 ####[facility] [address] [place], [place], [phone] Cholesterol [Mass/Vol] 51 mg/dL Normal <=200 [facility] Comment on above: Order Comment: 103.2 Result Comment: Chol esterol level, Desirable <200 mg/dLBorderline high cholesterol 200-239 mg/dLHigh cholesterol >=240 mg/dLRecommendations of the NCEP Adult Treatment Panel for thefollowing risk-cutoff thresholds for the [place] [facility]ab[facility] arrow[facility] campusulation. Performed By: #### L 506.1001, L503.0106, L500.2500, L500.4100, L501.5200, L100.0500, L501.9520 ####[facility] [address] [place], [place], [id number] Cholesterol in HDL [Mass/Vol] 22 mg/dL Low [facility] Comment on above: Order Comment: 103.2 Result Comment: Luc[place] onal Cholesterol Education Program (NCEP) guidelines:<40 mg/dL: Low HDL-cholesterol (major risk factor for CHD)>= 60 mg/dL: High HDL-cholesterol (negative risk factor forCHD)HDL-cholesterol is affected by a number of factors, e.g.smoking, exercise, hormones, sex and age. Performed By: #### L 506.1001, L503.0106, L500.2500, L500.4100, L501.5200, L100.0500, L501.9520 ####[facility] [address] [place], [address] Cholesterol in LDL [Mass/Vol] 13 mg/dL Normal [facility] Comment on above: Order Comment: 103.2 Result Comment: Bord psxxqa=016-905 mg/dL Higher Mzoo=936 mg/dL or greater Performed By: #### L 506.1001, L503.0106, L500.2500, L500.4100, L501.5200, L100.0500, L501.9520 ####[facility] [address] [place], [address] Cholesterol in VLDL [Mass/Vol] 16 mg/dL Normal 5-40 [facility] Comment on above: Order Comment: 103.2 Performed By: #### L 506.1001, L503.0106, L500.2500, L500.4100, L501.5200, L100.0500, L501.9520 ####[facility] [address] [place], [address] Triglyceride [Mass/Vol] 82 mg/dL Normal [facility] Comment on above: Order Comment: 103.2 Result Comment: The drugs N-Acetylcysteine and Metamizole may falselydepress this assay.Normal range: <150 mg/dLBorderline High: 150-199 mg/dLHigh: 200-499 mg/dLVery High: >500 mg/dL Performed By: #### L 506.1001, L503.0106, L500.2500, L500.4100, L501.5200, L100.0500, L501.9520 ####[facility] [address] [place], [place], [id number] MCV (RBC) [Entitic vol]Order ed By: Millie Massey on 07-30-2024 MCV (mean corpuscular volume) determination 87.1 fL 81-99 [facility] MCV (mean corpuscular volume ) determinationOrdered By: Millie Massey on 07-30-2024 MCV (RBC) [Entitic vol] 87.1 fL 81-99 [facility] Magnesiumon 07-30-2024 Magnesium [Mass/Vol] 1.9 mg/dL Normal 1.5-2.2 [facility] Comment on above: Order Comment: 103.2 Performed By: #### L 506.1001, L503.0106, L500.2500, L500.4100, L501.5200, L100.0500, L501.9520 ####[facility] [address] [place], [place], [id number] Magnesium (Unsp spec) [Mass/ Vol]Ordered By: Millie Massey on 07-30-2024 Magnesium measurement (mass/volume) 1.9 mg/dL 1.5-2.2 [facility] Magnesium measurement (mass/ volume)Ordered By: Millie Massey on 07-30-2024 Magnesium (Unsp spec) [Mass/Vol] 1.9 mg/dL 1.5-2.2 [facility] Mean corpuscular hemoglobin (MCH) determinationOrdered By: Millie Massey on 07-30-2024 MCH (RBC) [Entitic mass] 25.7 pg Low 27.0-32.0 [facility] Mean corpuscular hemoglobin (MCH) determination 25.7 pg Low 27.0-32.0 [facility] Mean corpuscular hemoglobin concentration (MCHC) determinationOrdered By: Millie Massey on 07-30-2024 Mean corpuscular hemoglobin concentration (MCHC) determination 29.5 g/dL Low 32-36 [facility] Mean platelet volume determi nationOrdered By: Millie Massey on 07-30-2024 Mean platelet volume determination 9.0 fl 6.2-12.0 [facility] Platelet countOrdered By: Carter Massey on 07-30-2024 Platelets (Bld) [#/Vol] 213 10*3/uL 150-450 [facility] Platelet count 213 K/mm3 150-450 [facility] Potassium (Unsp spec) [Mass/ Vol]Ordered By: Millie Massey on 07-30-2024 Potassium measurement (mass/volume) 4.4 mmol/L 3.3-5.1 [facility] Potassium measurement (mass/ volume)Ordered By: Millie Massey on 07-30-2024 Potassium (Unsp spec) [Mass/Vol] 4.4 mmol/L 3.3-5.1 [facility] RBC Auto (Bld) [#/Vol]Ordere d By: Millie Massey on 07-30-2024 RBC (Bld) [#/Vol] 3.03 10*6/uL Low 4.2-5.4 [facility] Automated blood erythrocyte count 3.03 M/mm3 Low 4.2-5.4 [facility] Screening total cholesterol/ high density lipoprotein (HDL) cholesterol ratioOrdered By: Millie Massey on 07-30-2024 Screening total cholesterol/high density lipoprotein (HDL) cholesterol ratio 2.32 [facility] Serum creatinine measurement (mass/volume)Ordered By: Millie Massey on 07-30-2024 Creatinine [Mass/Vol] 1.47 mg/dL High 0.70-1.20 [facility] Serum glucose measurement (m ass/volume)Ordered By: Millie Massey on 07-30-2024 Glucose [Mass/Vol] 96 mg/dL 70-99 [facility] Serum or plasma calcium megan urement (mass/volume)Ordered By: Millie Massey on 07-30-2024 Calcium [Mass/Vol] 8.6 mg/dL 7.6-11.0 [facility] Serum or plasma cholesterol in HDL measurement (mass/volume)Ordered By: Millie Massey on 07-30-2024 Cholesterol in HDL [Mass/Vol] 22 mg/dL Low >40 [facility] Serum or plasma cholesterol measurement (mass/volume)Ordered By: Millie Massey on 07-30-2024 Cholesterol [Mass/Vol] 51 mg/dL <201 [facility] Serum or plasma urea nitroge n measurement (mass/volume)Ordered By: Millie Massey on 07-30-2024 Urea nitrogen [Mass/Vol] 38 mg/dL High - [facility] Sodium levelOrdered By: Silvana Massey on 07-30-2024 Sodium [Moles/Vol] 133 mmol/L 133-145 [facility] Sodium level 133 mmol/L 133-145 [facility] TSH DL <= 0.005 mIU/L QnOrde red By: Millie Massey on 07-30-2024 TSH Qn 0.578 uIU/mL 0.300-4.20 0 [facility] Serum or plasma thyroid stimulating hormone (TSH) measurement by high sensitivity met 0.578 uIU/mL 0.300-4.20 0 [facility] Thyroid Stim Hormone (TSH)on 07-30-2024 TSH 0.578 uIU/mL Normal 0.300-4.20 0 [facility] Comment on above: Order Comment: 103.2 Performed By: #### L 506.1001, L503.0106, L500.2500, L500.4100, L501.5200, L100.0500, L501.9520 ####[facility] [address] [place], [place], [id number] Triglycerides measurementOrd ered By: Millie Massey on 07-30-2024 Triglycerides measurement 82 mg/dL <199 [facility] Urea nitrogen [Mass/Vol]Orde red By: Millie Massey on 07-30-2024 Serum or plasma urea nitrogen measurement (mass/volume) 38 mg/dL High 09-14 [facility] Vitamin B12 ser/plasOrdered By: Millie Massey on 07-30-2024 Cobalamin (Vitamin B12) [Mass/Vol] 452 pg/mL 180-914 [facility] Vitamin D, 25-hydroxyOrdered By: Millie aMssey on 07-30-2024 Vitamin D, 25-hydroxy 27.8 ng/mL Low 30-100 [facility] White blood cell (WBC) count Ordered By: Millie Massye on 07-30-2024 WBC (Bld) [#/Vol] 10.8 10*3/uL 4.4-11.0 [facility] White blood cell (WBC) count 10.8 K/mm3 4.4-11.0 [facility] Anion gap [Moles/Vol]Ordered By: Remedios Kessler on 07-29-2024 Serum or plasma anion gap determination (moles/volume) 9 - [facility] BUN/creatinine ratioOrdered By: Remedios Kessler on 07-29-2024 Urea nitrogen/Creatinine [Mass ratio] 26.5 mg/mg High 10-20 [facility] BUN/creatinine ratio 26.5 RATIO High 10-20 [facility] Basic Metabolic Profile (BMP )on 07-29-2024 Anion gap [Moles/Vol] 9 mmol/L Normal -15 [facility] Comment on above: Performed By: #### L 501.2300, L500.2500, L501.5200, L100.0500 ####[facility] [address] [place], [address] BUN/CRE 26.5 RATIO High 10-20 [facility] Comment on above: Performed By: #### L 501.2300, L500.2500, L501.5200, L100.0500 ####[facility] [address] [place], [address] Calcium [Mass/Vol] 8.5 mg/dL Normal 7.6-11.0 [facility] Comment on above: Performed By: #### L 501.2300, L500.2500, L501.5200, L100.0500 ####[facility] [address] [place], [address] Chloride [Moles/Vol] 95 mmol/L Low 96-108 [facility] Comment on above: Performed By: #### L 501.2300, L500.2500, L501.5200, L100.0500 ####[facility] [address] [place], [address] CO2 [Moles/Vol] 25.0 mmol/L Normal 22.0-29.0 [facility] Comment on above: Performed By: #### L 501.2300, L500.2500, L501.5200, L100.0500 ####[facility] [address] [place], [address] Creatinine [Mass/Vol] 1.88 mg/dL High 0.70-1.20 [facility] Comment on above: Performed By: #### L 501.2300, L500.2500, L501.5200, L100.0500 ####[facility] [address] [place], [address] ECRCL 19.59 ml/min Low 50-250 [facility] Comment on above: Performed By: #### L 501.2300, L500.2500, L501.5200, L100.0500 ####[facility] [address] [place], [address] GFR/1.73 sq M.predicted among non-blacks MDRD (S/P/Bld) [Vol rate/Area] 30 mL/min/{1.73_m2} Low >60 [facility] Comment on above: Result Comment: mL/m in/1.73m2 CKD-EPI Creatinine Equation (2020) Performed By: #### L 501.2300, L500.2500, L501.5200, L100.0500 ####[facility] [address] [place], [address] Glucose [Mass/Vol] 121 mg/dL High 70-99 [facility] Comment on above: Performed By: #### L 501.2300, L500.2500, L501.5200, L100.0500 ####[facility] [address] [place], [address] Potassium [Moles/Vol] 4.6 mmol/L Normal 3.3-5.1 [facility] Comment on above: Performed By: #### L 501.2300, L500.2500, L501.5200, L100.0500 ####[facility] [address] [place], [address] Sodium [Moles/Vol] 129 mmol/L Low 133-145 [facility] Comment on above: Performed By: #### L 501.2300, L500.2500, L501.5200, L100.0500 ####[facility] [address] [place], [address] Urea nitrogen [Mass/Vol] 50 mg/dL High 4-19 [facility] Comment on above: Performed By: #### L 501.2300, L500.2500, L501.5200, L100.0500 ####[facility] [address] [place], [address] CBC-Complete Blood Cnt No [facility] Lanieron 07-29-2024 Erythrocyte distribution width (RBC) [Ratio] 17.0 % High 11.6-14.6 [facility] Comment on above: Performed By: #### L 501.2300, L500.2500, L501.5200, L100.0500 ####[facility] [address] [place], [address] Hematocrit (Bld) [Volume fraction] 28.1 % Low 37-47 [facility] Comment on above: Performed By: #### L 501.2300, L500.2500, L501.5200, L100.0500 ####[facility] [address] [place], [address] Hemoglobin (Bld) [Mass/Vol] 8.3 g/dL Low 12.0-15.0 [facility] Comment on above: Performed By: #### L 501.2300, L500.2500, L501.5200, L100.0500 ####[facility] [address] [place], [address] MCH (RBC) [Entitic mass] 25.7 pg Low 27.0-32.0 [facility] Comment on above: Performed By: #### L 501.2300, L500.2500, L501.5200, L100.0500 ####[facility] [address] [place], [address] MCHC (RBC) [Mass/Vol] 29.5 g/dL Low 32-36 [facility] Comment on above: Performed By: #### L 501.2300, L500.2500, L501.5200, L100.0500 ####[facility] [address] [place], [address] MCV (RBC) [Entitic vol] 87.0 fL Normal 81-99 [facility] Comment on above: Performed By: #### L 501.2300, L500.2500, L501.5200, L100.0500 ####[facility] [address] [place], [address] Platelet mean volume (Bld) [Entitic vol] 9.3 fL Normal 6.2-12.0 [facility] Comment on above: Performed By: #### L 501.2300, L500.2500, L501.5200, L100.0500 ####[facility] [address] [place], [address] Platelets (Bld) [#/Vol] 222 10*3/uL Normal 150-450 [facility] Comment on above: Performed By: #### L 501.2300, L500.2500, L501.5200, L100.0500 ####[facility] [address] [place], [address] RBC (Bld) [#/Vol] 3.23 10*6/uL Low 4.2-5.4 [facility] Comment on above: Performed By: #### L 501.2300, L500.2500, L501.5200, L100.0500 ####[facility] [address] [place], [address] RDW SD 53.6 fl High 35.1-43.9 [facility] Comment on above: Performed By: #### L 501.2300, L500.2500, L501.5200, L100.0500 ####[facility] [address] [place], [address] WBC (Bld) [#/Vol] 13.8 10*3/uL High 4.4-11.0 [facility] Comment on above: Performed By: #### L 501.2300, L500.2500, L501.5200, L100.0500 ####[facility] [address] [place], [address] Calcium [Mass/Vol]Ordered By : Remedios Kessler on 07-29-2024 Serum or plasma calcium measurement (mass/volume) 8.5 mg/dL 7.6-11.0 [facility] Carbon dioxide measurementOr dered By: Remedios Kessler on 07-29-2024 CO2 [Moles/Vol] 25.0 mmol/L 22.0-29.0 [facility] Carbon dioxide measurement 25.0 mmol/L 22.0-29.0 [facility] Chloride measurementOrdered By: Remedios Kessler on 07-29-2024 Chloride [Moles/Vol] 95 mmol/L Low 96-108 [facility] Chloride measurement 95 mmol/L Low 96-108 [facility] Creatinine [Mass/Vol]Ordered By: Remedios Kessler on 07-29-2024 Serum creatinine measurement (mass/volume) 1.88 mg/dL High 0.70-1.20 [facility] Erythrocyte distribution wid th (RBC) [Ratio]Ordered By: Remedios Kessler on 07-29-2024 Erythrocyte distribution width ratio 17.0 % High 11.6-14.6 [facility] Erythrocyte distribution wid th ratioOrdered By: Remedios Kessler on 07-29-2024 Erythrocyte distribution width (RBC) [Ratio] 17.0 % High 11.6-14.6 [facility] Erythrocyte distribution wid th standard deviationOrdered By: Remedios Kessler on 07-29-2024 Erythrocyte distribution width (RBC) [Ratio] 53.6 fl High 35.1-43.9 [facility] Erythrocyte distribution width standard deviation 53.6 fl High 35.1-43.9 [facility] Estimation of creatinine austen aranceOrdered By: Remedios Kessler on 07-29-2024 Estimation of creatinine clearance 19.59 ml/min Low 50-250 [facility] GFR/1.73 sq M.predicted víctor g non-blacks MDRD (S/P/Bld) [Vol rate/Area]Ordered By: Remedios Kessler on 07-29-2024 Glomerular filtration rate (GFR) estimation/1.73 sq m using serum, plasma, or whole b 30 Low >60 [facility] Glomerular filtration rate ( GFR) estimation/1.73 sq m using serum, plasma, or whole bOrdered By: Remedios Kessler on 07-29-2024 GFR/1.73 sq M.predicted among non-blacks MDRD (S/P/Bld) [Vol rate/Area] 30 mL/min/{1.73_m2} Low >60 [facility] Glucose [Mass/Vol]Ordered By : Remedios Kessler on 07-29-2024 Serum glucose measurement (mass/volume) 121 mg/dL High 70-99 [facility] Hematocrit Auto (Bld) [Volum e fraction]Ordered By: Remedios Kessler on 07-29-2024 Hematocrit (Bld) [Volume fraction] 28.1 % Low 37-47 [facility] Automated blood hematocrit (percentage) 28.1 % Low 37-47 [facility] Hemoglobin measurementOrdere d By: Remedios Kessler on 07-29-2024 Hemoglobin (Bld) [Mass/Vol] 8.3 g/dL Low 12.0-15.0 [facility] Hemoglobin measurement 8.3 g/dL Low 12.0-15.0 [facility] MCV (RBC) [Entitic vol]Order ed By: Remedios Kessler on 07-29-2024 MCV (mean corpuscular volume) determination 87.0 fL 81-99 [facility] MCV (mean corpuscular volume ) determinationOrdered By: Remedios Kessler on 07-29-2024 MCV (RBC) [Entitic vol] 87.0 fL 81-99 [facility] Magnesiumon 07-29-2024 Magnesium [Mass/Vol] 1.8 mg/dL Normal 1.5-2.2 [facility] Comment on above: Performed By: #### L 501.2300, L500.2500, L501.5200, L100.0500 ####[facility] [address] [place], [address] Magnesium (Unsp spec) [Mass/ Vol]Ordered By: Remedios Kessler on 07-29-2024 Magnesium measurement (mass/volume) 1.8 mg/dL 1.5-2.2 [facility] Magnesium measurement (mass/ volume)Ordered By: Remedios Kessler on 07-29-2024 Magnesium (Unsp spec) [Mass/Vol] 1.8 mg/dL 1.5-2.2 [facility] Mean corpuscular hemoglobin (MCH) determinationOrdered By: Remedios Kessler on 07-29-2024 MCH (RBC) [Entitic mass] 25.7 pg Low 27.0-32.0 [facility] Mean corpuscular hemoglobin (MCH) determination 25.7 pg Low 27.0-32.0 [facility] Mean corpuscular hemoglobin concentration (MCHC) determinationOrdered By: Remedios Kessler on 07-29-2024 Mean corpuscular hemoglobin concentration (MCHC) determination 29.5 g/dL Low 32-36 [facility] Mean platelet volume determi nationOrdered By: Remedios Kessler on 07-29-2024 Mean platelet volume determination 9.3 fl 6.2-12.0 [facility] Phosphoruson 07-29-2024 Phosphate [Mass/Vol] 3.3 mg/dL Normal 2.7-4.5 [facility] Comment on above: Performed By: #### L 501.2300, L500.2500, L501.5200, L100.0500 ####[facility] [address] [place], [address] Platelet countOrdered By: Rip Kessler on 07-29-2024 Platelets (Bld) [#/Vol] 222 10*3/uL 150-450 [facility] Platelet count 222 K/mm3 150-450 [facility] Potassium [Moles/Vol]Ordered By: Remedios Kessler on 07-29-2024 Serum or plasma potassium measurement 4.6 mmol/L 3.3-5.1 [facility] RBC Auto (Bld) [#/Vol]Ordere d By: Remedios Kessler on 07-29-2024 RBC (Bld) [#/Vol] 3.23 10*6/uL Low 4.2-5.4 [facility] Automated blood erythrocyte count 3.23 M/mm3 Low 4.2-5.4 [facility] Serum creatinine measurement (mass/volume)Ordered By: Remedios Kessler on 07-29-2024 Creatinine [Mass/Vol] 1.88 mg/dL High 0.70-1.20 [facility] Serum glucose measurement (m ass/volume)Ordered By: Remedios Kessler on 07-29-2024 Glucose [Mass/Vol] 121 mg/dL High 70-99 [facility] Serum or plasma anion gap de termination (moles/volume)Ordered By: Remedios Kessler on 07-29-2024 Anion gap [Moles/Vol] 9 mmol/L 5-15 [facility] Serum or plasma calcium megan urement (mass/volume)Ordered By: Remedios Kessler on 07-29-2024 Calcium [Mass/Vol] 8.5 mg/dL 7.6-11.0 [facility] Serum or plasma potassium me asurementOrdered By: Remedios Kessler on 07-29-2024 Potassium [Moles/Vol] 4.6 mmol/L 3.3-5.1 [facility] Serum or plasma sodium measu rement (moles/volume)Ordered By: Remedios Kessler on 07-29-2024 Sodium [Moles/Vol] 129 mmol/L Low 133-145 [facility] Serum or plasma urea nitroge n measurement (mass/volume)Ordered By: Remedios Kessler on 07-29-2024 Urea nitrogen [Mass/Vol] 50 mg/dL High 4-19 [facility] Serum phosphorus measurement Ordered By: Remedios Kessler on 07-29-2024 Serum phosphorus measurement 3.3 mg/dL 2.7-4.5 [facility] Sodium [Moles/Vol]Ordered By : Remedios Kessler on 07-29-2024 Serum or plasma sodium measurement (moles/volume) 129 mmol/L Low 133-145 [facility] Urea nitrogen [Mass/Vol]Orde red By: Remedios Kessler on 07-29-2024 Serum or plasma urea nitrogen measurement (mass/volume) 50 mg/dL High 4-19 [facility] White blood cell (WBC) count Ordered By: Remedios Kessler on 07-29-2024 WBC (Bld) [#/Vol] 13.8 10*3/uL High 4.4-11.0 [facility] White blood cell (WBC) count 13.8 K/mm3 High 4.4-11.0 [facility] Absolute lymphocyte countOrd ered By: Remedios Kessler on 07-28-2024 Lymphocytes Auto (Unsp spec) [#/Vol] 0.41 10*3/uL Low 0.83-4.51 [facility] Absolute neutrophil countOrd ered By: Remedios Kessler on 07-28-2024 Absolute neutrophil count 14.2 X10^3/uL High 2.0-7.7 [facility] Automated lymphocyte count a s percentage of total leukocytesOrdered By: Remedios Kessler on 07-28-2024 Lymphocytes/100 WBC Auto (Unsp spec) 2.6 % Low 19-41 [facility] Basic Metabolic Profile (BMP )on 07-28-2024 Anion gap [Moles/Vol] 9 mmol/L Normal 5-15 [facility] Comment on above: Performed By: #### L 501.5200, L501.2300, L100.0100, L500.2500 ####[facility] [address] [place], [address] BUN/CRE 22.8 RATIO High 10-20 [facility] Comment on above: Performed By: #### L 501.5200, L501.2300, L100.0100, L500.2500 ####[facility] [address] [place], [address] Calcium [Mass/Vol] 8.8 mg/dL Normal 7.6-11.0 [facility] Comment on above: Performed By: #### L 501.5200, L501.2300, L100.0100, L500.2500 ####[facility] [address] [place], [address] Chloride [Moles/Vol] 98 mmol/L Normal 96-108 [facility] Comment on above: Performed By: #### L 501.5200, L501.2300, L100.0100, L500.2500 ####[facility] [address] [place], [address] CO2 [Moles/Vol] 22.8 mmol/L Normal 22.0-29.0 [facility] Comment on above: Performed By: #### L 501.5200, L501.2300, L100.0100, L500.2500 ####[facility] [address] [place], [address] Creatinine [Mass/Vol] 1.74 mg/dL High 0.70-1.20 [facility] Comment on above: Performed By: #### L 501.5200, L501.2300, L100.0100, L500.2500 ####[facility] [address] [place], [address] ECRCL 21.17 ml/min Low 50-250 [facility] Comment on above: Performed By: #### L 501.5200, L501.2300, L100.0100, L500.2500 ####[facility] [address] [place], [address] GFR/1.73 sq M.predicted among non-blacks MDRD (S/P/Bld) [Vol rate/Area] 33 mL/min/{1.73_m2} Low >60 [facility] Comment on above: Result Comment: mL/m in/1.73m2 CKD-EPI Creatinine Equation (2020) Performed By: #### L 501.5200, L501.2300, L100.0100, L500.2500 ####[facility] [address] [place], [address] Glucose [Mass/Vol] 69 mg/dL Low 70-99 [facility] Comment on above: Performed By: #### L 501.5200, L501.2300, L100.0100, L500.2500 ####[facility] [address] [place], [address] Potassium [Moles/Vol] 4.4 mmol/L Normal 3.3-5.1 [facility] Comment on above: Result Comment: Hemo lysis present, Results??could be affected.?? Performed By: #### L 501.5200, L501.2300, L100.0100, L500.2500 ####[facility] [address] [place], [address] Sodium [Moles/Vol] 130 mmol/L Low 133-145 [facility] Comment on above: Performed By: #### L 501.5200, L501.2300, L100.0100, L500.2500 ####[facility] [address] [place], [address] Urea nitrogen [Mass/Vol] 40 mg/dL High 4-19 [facility] Comment on above: Performed By: #### L 501.5200, L501.2300, L100.0100, L500.2500 ####[facility] [address] [place], [address] Basophil percentageOrdered B y: Remedios Kessler on 07-28-2024 Basophils/100 WBC (Bld) 0.2 % 0-1 [facility] Basophil percentage 0.2 % 0-1 [facility] CBC W/Diff, Automatedon Absolute Lymph 0.41 X10 3/uL Low 0.83-4.51 [facility] Comment on above: Performed By: #### L 501.5200, L501.2300, L100.0100, L500.2500 ####[facility] [address] [place], [address] Absolute Neut 14.2 X10 3/uL High 2.0-7.7 [facility] Comment on above: Performed By: #### L 501.5200, L501.2300, L100.0100, L500.2500 ####[facility] [address] [place], [address] Basophils/100 WBC (Bld) 0.2 % Normal 0-1 [facility] Comment on above: Performed By: #### L 501.5200, L501.2300, L100.0100, L500.2500 ####[facility] [address] [place], [address] Eosinophils/100 WBC (Bld) 0.4 % Normal 0-5 [facility] Comment on above: Performed By: #### L 501.5200, L501.2300, L100.0100, L500.2500 ####[facility] [address] [place], [address] Erythrocyte distribution width (RBC) [Ratio] 17.2 % High 11.6-14.6 [facility] Comment on above: Performed By: #### L 501.5200, L501.2300, L100.0100, L500.2500 ####[facility] [address] [place], [address] Hematocrit (Bld) [Volume fraction] 32.2 % Low 37-47 [facility] Comment on above: Performed By: #### L 501.5200, L501.2300, L100.0100, L500.2500 ####[facility] [address] [place], [address] Hemoglobin (Bld) [Mass/Vol] 9.6 g/dL Low 12.0-15.0 [facility] Comment on above: Performed By: #### L 501.5200, L501.2300, L100.0100, L500.2500 ####[facility] [address] [place], [address] IG% 1.700 High 0.0-0.9 [facility] Comment on above: Result Comment: IG% - Immature Granulocytes (promyelocytes, myelocytes andmetamyelocytes) > 1% indicates that a LEFT SHIFT is Present. Performed By: #### L 501.5200, L501.2300, L100.0100, L500.2500 ####[facility] [address] [place], [address] Lymphocytes/100 WBC (Bld) 2.6 % Low 19-41 [facility] Comment on above: Performed By: #### L 501.5200, L501.2300, L100.0100, L500.2500 ####[facility] [address] [place], [address] MCH (RBC) [Entitic mass] 25.7 pg Low 27.0-32.0 [facility] Comment on above: Performed By: #### L 501.5200, L501.2300, L100.0100, L500.2500 ####[facility] [address] [place], [address] MCHC (RBC) [Mass/Vol] 29.8 g/dL Low 32-36 [facility] Comment on above: Performed By: #### L 501.5200, L501.2300, L100.0100, L500.2500 ####[facility] [address] [place], [address] MCV (RBC) [Entitic vol] 86.3 fL Normal 81-99 [facility] Comment on above: Performed By: #### L 501.5200, L501.2300, L100.0100, L500.2500 ####[facility] [address] [place], [address] Monocytes/100 WBC (Bld) 4.2 % Normal 0-10 [facility] Comment on above: Performed By: #### L 501.5200, L501.2300, L100.0100, L500.2500 ####[facility] [address] [place], [address] Neutrophils/100 WBC (Bld) 90.9 % High 47-70 [facility] Comment on above: Performed By: #### L 501.5200, L501.2300, L100.0100, L500.2500 ####[facility] [address] [place], [address] Nucleated RBC (Bld) [#/Vol] 0 10*3/uL Normal 0-5 [facility] Comment on above: Performed By: #### L 501.5200, L501.2300, L100.0100, L500.2500 ####[facility] [address] [place], [address] Platelet mean volume (Bld) [Entitic vol] 8.3 fL Normal 6.2-12.0 [facility] Comment on above: Performed By: #### L 501.5200, L501.2300, L100.0100, L500.2500 ####[facility] [address] [place], [address] Platelets (Bld) [#/Vol] 217 10*3/uL Normal 150-450 [facility] Comment on above: Performed By: #### L 501.5200, L501.2300, L100.0100, L500.2500 ####[facility] [address] [place], [address] RBC (Bld) [#/Vol] 3.73 10*6/uL Low 4.2-5.4 [facility] Comment on above: Performed By: #### L 501.5200, L501.2300, L100.0100, L500.2500 ####[facility] [address] [place], [address] RDW SD 53.4 fl High 35.1-43.9 [facility] Comment on above: Performed By: #### L 501.5200, L501.2300, L100.0100, L500.2500 ####[facility] [address] [place], [address] WBC (Bld) [#/Vol] 15.6 10*3/uL High 4.4-11.0 [facility] Comment on above: Performed By: #### L 501.5200, L501.2300, L100.0100, L500.2500 ####[facility] [address] [place], [address] Eosinophil percentageOrdered By: Remedios Kessler on 07-28-2024 Eosinophils/100 WBC (Bld) 0.4 % 0-5 [facility] Eosinophil percentage 0.4 % 0-5 [facility] Immature granulocytes/100 WB C Auto (Bld)Ordered By: Remedios Kessler on 07-28-2024 Immature granulocytes/100 WBC (Bld) 1.700 % High 0.0-0.9 [facility] Automated immature granulocyte percentage 1.700 % High 0.0-0.9 [facility] Lymphocytes Auto (Unsp spec) [#/Vol]Ordered By: Remedios Kessler on 07-28-2024 Absolute lymphocyte count 0.41 X10^3/uL Low 0.83-4.51 [facility] Lymphocytes/100 WBC Auto (Un sp spec)Ordered By: Remedios Kessler on 07-28-2024 Automated lymphocyte count as percentage of total leukocytes 2.6 % Low 19-41 [facility] Magnesiumon 07-28-2024 Magnesium [Mass/Vol] 2.0 mg/dL Normal 1.5-2.2 [facility] Comment on above: Performed By: #### L 501.5200, L501.2300, L100.0100, L500.2500 ####[facility] [address] [place], [address] Monocyte percentageOrdered B y: Remedios Kessler on 07-28-2024 Monocytes/100 WBC (Bld) 4.2 % 0-10 [facility] Monocyte percentage 4.2 % 0-10 [facility] Neutrophil percentageOrdered By: Remedios Kessler on 07-28-2024 Neutrophils/100 WBC (Bld) 90.9 % High 47-70 [facility] Neutrophil percentage 90.9 % High 47-70 [facility] Nucleated red blood cell per centageOrdered By: Remedios Kessler on 07-28-2024 Nucleated red blood cell percentage 0 % 0-5 [facility] Phosphoruson 07-28-2024 Phosphate [Mass/Vol] 3.4 mg/dL Normal 2.7-4.5 [facility] Comment on above: Performed By: #### L 501.5200, L501.2300, L100.0100, L500.2500 ####[facility] [address] [place], [address] Basic Metabolic Profile (BMP )on 07-27-2024 Anion gap [Moles/Vol] 9 mmol/L Normal 5-15 [facility] Comment on above: Performed By: #### L 500.2500, L501.5200, L100.0100, L501.2300 ####[facility] [address] [place], [address] BUN/CRE 21.0 RATIO High 10-20 [facility] Comment on above: Performed By: #### L 500.2500, L501.5200, L100.0100, L501.2300 ####[facility] [address] [place], [address] Calcium [Mass/Vol] 8.9 mg/dL Normal 7.6-11.0 [facility] Comment on above: Performed By: #### L 500.2500, L501.5200, L100.0100, L501.2300 ####[facility] [address] [place], [address] Chloride [Moles/Vol] 98 mmol/L Normal 96-108 [facility] Comment on above: Performed By: #### L 500.2500, L501.5200, L100.0100, L501.2300 ####[facility] [address] [place], [address] CO2 [Moles/Vol] 23.8 mmol/L Normal 22.0-29.0 [facility] Comment on above: Performed By: #### L 500.2500, L501.5200, L100.0100, L501.2300 ####[facility] [address] [place], [address] Creatinine [Mass/Vol] 1.40 mg/dL High 0.70-1.20 [facility] Comment on above: Performed By: #### L 500.2500, L501.5200, L100.0100, L501.2300 ####[facility] [address] [place], [address] ECRCL 26.31 ml/min Normal [facility] Comment on above: Performed By: #### L 500.2500, L501.5200, L100.0100, L501.2300 ####[facility] [address] [place], [address] GFR/1.73 sq M.predicted among non-blacks MDRD (S/P/Bld) [Vol rate/Area] 43 mL/min/{1.73_m2} Low >60 [facility] Comment on above: Result Comment: mL/m in/1.73m2 CKD-EPI Creatinine Equation (2020) Performed By: #### L 500.2500, L501.5200, L100.0100, L501.2300 ####[facility] [address] [place], [address] Glucose [Mass/Vol] 89 mg/dL Normal 70-99 [facility] Comment on above: Performed By: #### L 500.2500, L501.5200, L100.0100, L501.2300 ####[facility] [address] [place], [address] Potassium [Moles/Vol] 3.8 mmol/L Normal 3.3-5.1 [facility] Comment on above: Performed By: #### L 500.2500, L501.5200, L100.0100, L501.2300 ####[facility] [address] [place], [address] Sodium [Moles/Vol] 130 mmol/L Low 133-145 [facility] Comment on above: Performed By: #### L 500.2500, L501.5200, L100.0100, L501.2300 ####[facility] [address] [place], [address] Urea nitrogen [Mass/Vol] 29 mg/dL High 4-19 [facility] Comment on above: Performed By: #### L 500.2500, L501.5200, L100.0100, L501.2300 ####[facility] [address] [place], [address] CBC W/Diff, Automatedon 03-0 -2024 Absolute Lymph 0.63 X10 3/uL Low 0.83-4.51 [facility] Comment on above: Performed By: #### L 500.2500, L501.5200, L100.0100, L501.2300 ####[facility] [address] [place], [address] Absolute Neut 18.1 X10 3/uL High 2.0-7.7 [facility] Comment on above: Performed By: #### L 500.2500, L501.5200, L100.0100, L501.2300 ####[facility] [address] [place], [address] Basophils/100 WBC (Bld) 0.2 % Normal 0-1 [facility] Comment on above: Performed By: #### L 500.2500, L501.5200, L100.0100, L501.2300 ####[facility] [address] [place], [address] Eosinophils/100 WBC (Bld) 0.3 % Normal 0-5 [facility] Comment on above: Performed By: #### L 500.2500, L501.5200, L100.0100, L501.2300 ####[facility] [address] [place], [address] Erythrocyte distribution width (RBC) [Ratio] 17.2 % High 11.6-14.6 [facility] Comment on above: Performed By: #### L 500.2500, L501.5200, L100.0100, L501.2300 ####[facility] [address] [place], [address] Hematocrit (Bld) [Volume fraction] 30.9 % Low 37-47 [facility] Comment on above: Performed By: #### L 500.2500, L501.5200, L100.0100, L501.2300 ####[facility] [address] [place], [address] Hemoglobin (Bld) [Mass/Vol] 9.2 g/dL Low 12.0-15.0 [facility] Comment on above: Performed By: #### L 500.2500, L501.5200, L100.0100, L501.2300 ####[facility] [address] [place], [address] IG% 1.400 High 0.0-0.9 [facility] Comment on above: Result Comment: IG% - Immature Granulocytes (promyelocytes, myelocytes andmetamyelocytes) > 1% indicates that a LEFT SHIFT is Present. Performed By: #### L 500.2500, L501.5200, L100.0100, L501.2300 ####[facility] [address] [place], [address] Lymphocytes/100 WBC (Bld) 3.2 % Low 19-41 [facility] Comment on above: Performed By: #### L 500.2500, L501.5200, L100.0100, L501.2300 ####[facility] [address] [place], [address] MCH (RBC) [Entitic mass] 26.1 pg Low 27.0-32.0 [facility] Comment on above: Performed By: #### L 500.2500, L501.5200, L100.0100, L501.2300 ####[facility] [address] [place], [address] MCHC (RBC) [Mass/Vol] 29.8 g/dL Low 32-36 [facility] Comment on above: Performed By: #### L 500.2500, L501.5200, L100.0100, L501.2300 ####[facility] [address] [place], [address] MCV (RBC) [Entitic vol] 87.5 fL Normal 81-99 [facility] Comment on above: Performed By: #### L 500.2500, L501.5200, L100.0100, L501.2300 ####[facility] [address] [place], [address] Monocytes/100 WBC (Bld) 4.5 % Normal 0-10 [facility] Comment on above: Performed By: #### L 500.2500, L501.5200, L100.0100, L501.2300 ####[facility] [address] [place], [address] Neutrophils/100 WBC (Bld) 90.4 % High 47-70 [facility] Comment on above: Performed By: #### L 500.2500, L501.5200, L100.0100, L501.2300 ####[facility] [address] [place], [address] Nucleated RBC (Bld) [#/Vol] 0 10*3/uL Normal 0-5 [facility] Comment on above: Performed By: #### L 500.2500, L501.5200, L100.0100, L501.2300 ####[facility] [address] [place], [address] Platelet mean volume (Bld) [Entitic vol] 8.8 fL Normal 6.2-12.0 [facility] Comment on above: Performed By: #### L 500.2500, L501.5200, L100.0100, L501.2300 ####[facility] [address] [place], [address] Platelets (Bld) [#/Vol] 265 10*3/uL Normal 150-450 [facility] Comment on above: Performed By: #### L 500.2500, L501.5200, L100.0100, L501.2300 ####[facility] [address] [place], [address] RBC (Bld) [#/Vol] 3.53 10*6/uL Low 4.2-5.4 [facility] Comment on above: Performed By: #### L 500.2500, L501.5200, L100.0100, L501.2300 ####[facility] [address] [place], [address] RDW SD 53.9 fl High 35.1-43.9 [facility] Comment on above: Performed By: #### L 500.2500, L501.5200, L100.0100, L501.2300 ####[facility] [address] [place], [address] WBC (Bld) [#/Vol] 20.0 10*3/uL High 4.4-11.0 [facility] Comment on above: Performed By: #### L 500.2500, L501.5200, L100.0100, L501.2300 ####[facility] [address] [place], [address] Magnesiumon 07-27-2024 Magnesium [Mass/Vol] 1.9 mg/dL Normal 1.5-2.2 [facility] Comment on above: Performed By: #### L 500.2500, L501.5200, L100.0100, L501.2300 ####[facility] [address] [place], [address] Phosphoruson 07-27-2024 Phosphate [Mass/Vol] 3.6 mg/dL Normal 2.7-4.5 [facility] Comment on above: Performed By: #### L 500.2500, L501.5200, L100.0100, L501.2300 ####[facility] [address] [place], [address] Basic Metabolic Profile (BMP )on 07-26-2024 Anion gap [Moles/Vol] 10 mmol/L Normal 5-15 [facility] Comment on above: Performed By: #### L 501.2300, L500.2500, L501.5200 ####[facility] [address] [place], [address] BUN/CRE 19.9 RATIO Normal 10-20 [facility] Comment on above: Performed By: #### L 501.2300, L500.2500, L501.5200 ####[facility] [address] [place], [address] Calcium [Mass/Vol] 8.6 mg/dL Normal 7.6-11.0 [facility] Comment on above: Performed By: #### L 501.2300, L500.2500, L501.5200 ####[facility] [address] [place], [address] Chloride [Moles/Vol] 98 mmol/L Normal 96-108 [facility] Comment on above: Performed By: #### L 501.2300, L500.2500, L501.5200 ####[facility] [address] [place], [address] CO2 [Moles/Vol] 22.9 mmol/L Normal 22.0-29.0 [facility] Comment on above: Performed By: #### L 501.2300, L500.2500, L501.5200 ####[facility] [address] [place], [address] Creatinine [Mass/Vol] 1.60 mg/dL High 0.70-1.20 [facility] Comment on above: Performed By: #### L 501.2300, L500.2500, L501.5200 ####[facility] [address] [place], [address] ECRCL 23.88 ml/min Normal [facility] Comment on above: Performed By: #### L 501.2300, L500.2500, L501.5200 ####[facility] [address] [place], [address] GFR/1.73 sq M.predicted among non-blacks MDRD (S/P/Bld) [Vol rate/Area] 36 mL/min/{1.73_m2} Low >60 [facility] Comment on above: Result Comment: mL/m in/1.73m2 CKD-EPI Creatinine Equation (2020) Performed By: #### L 501.2300, L500.2500, L501.5200 ####[facility] [address] [place], [address] Glucose [Mass/Vol] 66 mg/dL Low 70-99 [facility] Comment on above: Performed By: #### L 501.2300, L500.2500, L501.5200 ####[facility] [address] [place], [address] Potassium [Moles/Vol] 4.1 mmol/L Normal 3.3-5.1 [facility] Comment on above: Result Comment: Hemo lysis present, Results??could be affected.?? Performed By: #### L 501.2300, L500.2500, L501.5200 ####[facility] [address] [place], [address] Sodium [Moles/Vol] 131 mmol/L Low 133-145 [facility] Comment on above: Performed By: #### L 501.2300, L500.2500, L501.5200 ####[facility] [address] [place], [address] Urea nitrogen [Mass/Vol] 32 mg/dL High 4-19 [facility] Comment on above: Performed By: #### L 501.2300, L500.2500, L501.5200 ####[facility] [address] [place], [address] Magnesiumon 07-26-2024 Magnesium [Mass/Vol] 1.9 mg/dL Normal 1.5-2.2 [facility] Comment on above: Performed By: #### L 501.2300, L500.2500, L501.5200 ####[facility] [address] [place], [address] Phosphoruson 07-26-2024 Phosphate [Mass/Vol] 3.9 mg/dL Normal 2.7-4.5 [facility] Comment on above: Performed By: #### L 501.2300, L500.2500, L501.5200 ####[facility] [address] [place], [address] Wound Cultureon 07-26-2024 WC left lower abdomen No growth aerobically. Normal [facility] Comment on above: Performed By: #### M 100.2000, M100.3000, L8200.1075 ####[facility] [address] [place], [address] Basic Metabolic Profile (BMP )on 07-25-2024 Anion gap [Moles/Vol] 11 mmol/L Normal 5-15 [facility] Comment on above: Performed By: #### L 501.5200, L100.0500, L501.2300, L500.2500 ####[facility] [address] [place], [address] BUN/CRE 20.2 RATIO High 10-20 [facility] Comment on above: Performed By: #### L 501.5200, L100.0500, L501.2300, L500.2500 ####[facility] [address] [place], [address] Calcium [Mass/Vol] 8.4 mg/dL Normal 7.6-11.0 [facility] Comment on above: Performed By: #### L 501.5200, L100.0500, L501.2300, L500.2500 ####[facility] [address] [place], [address] Chloride [Moles/Vol] 101 mmol/L Normal 96-108 [facility] Comment on above: Performed By: #### L 501.5200, L100.0500, L501.2300, L500.2500 ####[facility] [address] [place], [address] CO2 [Moles/Vol] 23.9 mmol/L Normal 22.0-29.0 [facility] Comment on above: Performed By: #### L 501.5200, L100.0500, L501.2300, L500.2500 ####[facility] [address] [place], [address] Creatinine [Mass/Vol] 2.1 mg/dL High 0.6-1.0 [facility] Comment on above: Performed By: #### L 501.5200, L100.0500, L501.2300, L500.2500 ####[facility] [address] [place], [address] ECRCL 19.07 ml/min Normal [facility] Comment on above: Performed By: #### L 501.5200, L100.0500, L501.2300, L500.2500 ####[facility] [address] [place], [address] GFR/1.73 sq M.predicted among non-blacks MDRD (S/P/Bld) [Vol rate/Area] 26 mL/min/{1.73_m2} Low >60 [facility] Comment on above: Result Comment: mL/m in/1.73m2 CKD-EPI Creatinine Equation (2020) Performed By: #### L 501.5200, L100.0500, L501.2300, L500.2500 ####[facility] [address] [place], [address] Glucose [Mass/Vol] 101 mg/dL High 70-99 [facility] Comment on above: Performed By: #### L 501.5200, L100.0500, L501.2300, L500.2500 ####[facility] [address] [place], [address] Potassium [Moles/Vol] 4.1 mmol/L Normal 3.3-5.1 [facility] Comment on above: Performed By: #### L 501.5200, L100.0500, L501.2300, L500.2500 ####[facility] [address] [place], [address] Sodium [Moles/Vol] 136 mmol/L Normal 133-145 [facility] Comment on above: Performed By: #### L 501.5200, L100.0500, L501.2300, L500.2500 ####[facility] [address], [address] Urea nitrogen [Mass/Vol] 43 mg/dL High 4-19 [facility] Comment on above: Performed By: #### L 501.5200, L100.0500, L501.2300, L500.2500 ####[facility] [address] [place], [address] CBC-Complete Blood Cnt No Di ffon 07-25-2024 Erythrocyte distribution width (RBC) [Ratio] 17.2 % High 11.6-14.6 [facility] Comment on above: Performed By: #### L 501.5200, L100.0500, L501.2300, L500.2500 ####[facility] [address] [place], [address] Hematocrit (Bld) [Volume fraction] 27.3 % Low 37-47 [facility] Comment on above: Performed By: #### L 501.5200, L100.0500, L501.2300, L500.2500 ####[facility] [address] [place], [address] Hemoglobin (Bld) [Mass/Vol] 8.2 g/dL Low 12.0-15.0 [facility] Comment on above: Performed By: #### L 501.5200, L100.0500, L501.2300, L500.2500 ####[facility] [address] [place], [address] MCH (RBC) [Entitic mass] 26.5 pg Low 27.0-32.0 [facility] Comment on above: Performed By: #### L 501.5200, L100.0500, L501.2300, L500.2500 ####[facility] [address] [place], [address] MCHC (RBC) [Mass/Vol] 30.0 g/dL Low 32-36 [facility] Comment on above: Performed By: #### L 501.5200, L100.0500, L501.2300, L500.2500 ####[facility] [address] [place], [address] MCV (RBC) [Entitic vol] 88.1 fL Normal 81-99 [facility] Comment on above: Performed By: #### L 501.5200, L100.0500, L501.2300, L500.2500 ####[facility] [address] [place], [address] Platelet mean volume (Bld) [Entitic vol] 8.8 fL Normal 6.2-12.0 [facility] Comment on above: Performed By: #### L 501.5200, L100.0500, L501.2300, L500.2500 ####[facility] [address] [place], [address] Platelets (Bld) [#/Vol] 317 10*3/uL Normal 150-450 [facility] Comment on above: Performed By: #### L 501.5200, L100.0500, L501.2300, L500.2500 ####[facility] [address] [place], [address] RBC (Bld) [#/Vol] 3.10 10*6/uL Low 4.2-5.4 [facility] Comment on above: Performed By: #### L 501.5200, L100.0500, L501.2300, L500.2500 ####[facility] [address] [place], [address] RDW SD 55.3 fl High 35.1-43.9 [facility] Comment on above: Performed By: #### L 501.5200, L100.0500, L501.2300, L500.2500 ####[facility] [address] [place], [address] WBC (Bld) [#/Vol] 10.8 10*3/uL Normal 4.4-11.0 [facility] Comment on above: Performed By: #### L 501.5200, L100.0500, L501.2300, L500.2500 ####[facility] [address] [place], [address] Gram Stainon 07-25-2024 GS left lower abdomen Gram Stain No organisms seen No cells seen Normal [facility] Comment on above: Performed By: #### M 100.2000, M100.3000, L8200.1075 ####[facility] [address] [place], [address] Gram stainOrdered By: Panda Kessler on 07-25-2024 Microscopic observation Gram stain Nom (Unsp spec) [facility] MRSA Wound DNA by PCRon 06-30 MRSA DNA ASSAY Negative Normal Negative [facility] Comment on above: Order Comment: left lower abdomen Performed By: #### M 100.2000, M100.3000, L8200.1075 ####[facility] [address] [place], [address] SA DNA ASSAY Negative Normal Negative [facility] Comment on above: Order Comment: left lower abdomen Performed By: #### M 100.2000, M100.3000, L8200.1075 ####[facility] [address] [place], [address] MRSA detection PCROrdered By : Remedios Kessler on 07-25-2024 MRSA detection PCR Negative Negative [facility] Magnesiumon 07-25-2024 Magnesium [Mass/Vol] 1.9 mg/dL Normal 1.5-2.2 [facility] Comment on above: Performed By: #### L 501.5200, L100.0500, L501.2300, L500.2500 ####[facility] [address] [place], [address] Phosphoruson 07-25-2024 Phosphate [Mass/Vol] 4.9 mg/dL High 2.7-4.5 [facility] Comment on above: Performed By: #### L 501.5200, L100.0500, L501.2300, L500.2500 ####[facility] [address] [place], [address] Routine wound cultureOrdered By: Remedios Kessler on 07-25-2024 Routine wound culture No growth aerobically. [facility] Staphylococcus aureus DNA de tection by probe and target amplification methodOrdered By: Remedios Kessler on 07-25-2024 S. aureus DNA MOISES+probe Ql (Unsp spec) Negative Negative [facility] ALP [Catalytic activity/Vol] Ordered By: Judd Galvin on 07-24-2024 Serum or plasma alkaline phosphatase measurement 45 U/L 35-104 [facility] ALT [Catalytic activity/Vol] Ordered By: Judd Galvin on 07-24-2024 Serum or plasma alanine aminotransferase (ALT) measurement 9 U/L <35 [facility] Albumin [Mass/Vol]Ordered By : Judd Galvin on 07-24-2024 Serum or plasma albumin measurement (mass/volume) 2.4 g/dL Low 3.4-4.8 [facility] Albumin/Globulin [Mass ratio ]Ordered By: Judd Galvni on 07-24-2024 Serum or plasma albumin/globulin mass ratio 0.7 RATIO Low 0.9-2.4 [facility] Bilirubin, totalOrdered By: Judd Galvin on 07-24-2024 Bilirubin [Mass/Vol] 0.32 mg/dL 0.00-1.30 [facility] Bilirubin, total 0.32 mg/dL 0.00-1.30 [facility] CBC W/Diff, Automatedon 06-30 Absolute Lymph 0.57 X10 3/uL Low 0.83-4.51 [facility] Comment on above: Performed By: #### L 500.4050, L100.0100 ####[facility] [address] [place], [address] Absolute Neut 11.6 X10 3/uL High 2.0-7.7 [facility] Comment on above: Performed By: #### L 500.4050, L100.0100 ####[facility] [address] [place], [address] Basophils/100 WBC (Bld) 0.3 % Normal 0-1 [facility] Comment on above: Performed By: #### L 500.4050, L100.0100 ####[facility] [address] [place], [address] Eosinophils/100 WBC (Bld) 0.4 % Normal 0-5 [facility] Comment on above: Performed By: #### L 500.4050, L100.0100 ####[facility] [address] [place], [address] Erythrocyte distribution width (RBC) [Ratio] 17.2 % High 11.6-14.6 [facility] Comment on above: Performed By: #### L 500.4050, L100.0100 ####[facility] [address] [place], [address] Hematocrit (Bld) [Volume fraction] 29.6 % Low 37-47 [facility] Comment on above: Performed By: #### L 500.4050, L100.0100 ####[facility] [address] [place], [address] Hemoglobin (Bld) [Mass/Vol] 8.8 g/dL Low 12.0-15.0 [facility] Comment on above: Performed By: #### L 500.4050, L100.0100 ####[facility] [address] [place], [address] IG% 1.700 High 0.0-0.9 [facility] Comment on above: Result Comment: IG% - Immature Granulocytes (promyelocytes, myelocytes andmetamyelocytes) > 1% indicates that a LEFT SHIFT is Present. Performed By: #### L 500.4050, L100.0100 ####[facility] [address] [place], [address] Lymphocytes/100 WBC (Bld) 4.3 % Low 19-41 [facility] Comment on above: Performed By: #### L 500.4050, L100.0100 ####[facility] [address] [place], [address] MCH (RBC) [Entitic mass] 26.5 pg Low 27.0-32.0 [facility] Comment on above: Performed By: #### L 500.4050, L100.0100 ####[facility] [address] [place], [address] MCHC (RBC) [Mass/Vol] 29.7 g/dL Low 32-36 [facility] Comment on above: Performed By: #### L 500.4050, L100.0100 ####[facility] [address] [place], [address] MCV (RBC) [Entitic vol] 89.2 fL Normal 81-99 [facility] Comment on above: Performed By: #### L 500.4050, L100.0100 ####[facility] [address] [place], [address] Monocytes/100 WBC (Bld) 6.6 % Normal 0-10 [facility] Comment on above: Performed By: #### L 500.4050, L100.0100 ####[facility] [address] [place], [address] Neutrophils/100 WBC (Bld) 86.7 % High 47-70 [facility] Comment on above: Performed By: #### L 500.4050, L100.0100 ####[facility] [address] [place], [address] Nucleated RBC (Bld) [#/Vol] 0.1 10*3/uL Normal 0-5 [facility] Comment on above: Performed By: #### L 500.4050, L100.0100 ####[facility] [address] [place], [address] Platelet mean volume (Bld) [Entitic vol] 8.4 fL Normal 6.2-12.0 [facility] Comment on above: Performed By: #### L 500.4050, L100.0100 ####[facility] [address] [place], [address] Platelets (Bld) [#/Vol] 303 10*3/uL Normal 150-450 [facility] Comment on above: Performed By: #### L 500.4050, L100.0100 ####[facility] [address] [place], [address] RBC (Bld) [#/Vol] 3.32 10*6/uL Low 4.2-5.4 [facility] Comment on above: Performed By: #### L 500.4050, L100.0100 ####[facility] [address] [place], [address] RDW SD 55.6 fl High 35.1-43.9 [facility] Comment on above: Performed By: #### L 500.4050, L100.0100 ####[facility] [address] [place], [address] WBC (Bld) [#/Vol] 13.4 10*3/uL High 4.4-11.0 [facility] Comment on above: Performed By: #### L 500.4050, L100.0100 ####[facility] [address] [place], [address] Comprehensive Metabolic Prof ilon 07-24-2024 Albumin [Mass/Vol] 2.4 g/dL Low 3.4-4.8 [facility] Comment on above: Performed By: #### L 500.4050, L100.0100 ####[facility] [address] [place], [address] Albumin/Globulin [Mass ratio] 0.7 {ratio} Low 0.9-2.4 [facility] Comment on above: Performed By: #### L 500.4050, L100.0100 ####[facility] [address] [place], [address] ALK PHOS 45 U/L Normal 35-104 [facility] Comment on above: Performed By: #### L 500.4050, L100.0100 ####[facility] [address] [place], [address] ALT [Catalytic activity/Vol] 9 U/L Normal <=34 [facility] Comment on above: Performed By: #### L 500.4050, L100.0100 ####[facility] [address] [place], [address] Anion gap [Moles/Vol] 10 mmol/L Normal 5-15 [facility] Comment on above: Performed By: #### L 500.4050, L100.0100 ####[facility] [address] [place], [address] AST [Catalytic activity/Vol] 20 U/L Normal <=31 [facility] Comment on above: Performed By: #### L 500.4050, L100.0100 ####[facility] [address] [place], [address] Bilirubin [Mass/Vol] 0.32 mg/dL Normal 0.00-1.30 [facility] Comment on above: Performed By: #### L 500.4050, L100.0100 ####[facility] [address] [place], [address] BUN/CRE 19.3 RATIO Normal 10-20 [facility] Comment on above: Performed By: #### L 500.4050, L100.0100 ####[facility] [address] [place], [address] Calcium [Mass/Vol] 8.7 mg/dL Normal 7.6-11.0 [facility] Comment on above: Performed By: #### L 500.4050, L100.0100 ####[facility] [address] [place], [address] Chloride [Moles/Vol] 100 mmol/L Normal 96-108 [facility] Comment on above: Performed By: #### L 500.4050, L100.0100 ####[facility] [address] [place], [address] CO2 [Moles/Vol] 26.3 mmol/L Normal 22.0-29.0 [facility] Comment on above: Performed By: #### L 500.4050, L100.0100 ####[facility] [address] [place], [address] Creatinine [Mass/Vol] 1.8 mg/dL High 0.6-1.0 [facility] Comment on above: Performed By: #### L 500.4050, L100.0100 ####[facility] [address] [place], [address] ECRCL 22.25 ml/min Normal [facility] Comment on above: Performed By: #### L 500.4050, L100.0100 ####[facility] [address] [place], [address] GFR/1.73 sq M.predicted among non-blacks MDRD (S/P/Bld) [Vol rate/Area] 32 mL/min/{1.73_m2} Low >60 [facility] Comment on above: Result Comment: mL/m in/1.73m2 CKD-EPI Creatinine Equation (2020) Performed By: #### L 500.4050, L100.0100 ####[facility] [address] [place], [address] Globulin (S) [Mass/Vol] 3.6 g/dL Normal 2.2-4.2 [facility] Comment on above: Performed By: #### L 500.4050, L100.0100 ####[facility] [address] [place], [address] Glucose [Mass/Vol] 68 mg/dL Low 70-99 [facility] Comment on above: Performed By: #### L 500.4050, L100.0100 ####[facility] [address] [place], [address] Potassium [Moles/Vol] 4.0 mmol/L Normal 3.3-5.1 [facility] Comment on above: Performed By: #### L 500.4050, L100.0100 ####[facility] [address] [place], [address] Sodium [Moles/Vol] 137 mmol/L Normal 133-145 [facility] Comment on above: Performed By: #### L 500.4050, L100.0100 ####[facility] [address] [place], [address] T PROT 6.0 g/dL Normal 5.9-8.4 [facility] Comment on above: Performed By: #### L 500.4050, L100.0100 ####[facility] [address] [place], [address] Urea nitrogen [Mass/Vol] 34 mg/dL High 4-19 [facility] Comment on above: Performed By: #### L 500.4050, L100.0100 ####[facility] [address] [place], [address] Consultation - Nephrologyon 07-24-2024 Consultation - Nephrology Normal [facility] EGD Reporton 07-24-2024 EGD Report Normal [facility] MR/POSTOP.ANEon 07-24-2024 MR/POSTOP.ANE Normal [facility] MR/STLUDHWW8qd 07-24-2024 MR/POSTOPAN2 Normal [facility] No Panel InformationOrdered By: Judd Galvin on 07-24-2024 20 U/L <32 [facility] Serum globulin measurementOr dered By: Judd Galvin on 07-24-2024 Globulin (S) [Mass/Vol] 3.6 g/dL 2.2-4.2 [facility] Serum globulin measurement 3.6 g/dL 2.2-4.2 [facility] Serum or plasma alanine camargo otransferase (ALT) measurementOrdered By: Judd Galvin on 07-24-2024 ALT [Catalytic activity/Vol] 9 U/L <35 [facility] Serum or plasma albumin megan urement (mass/volume)Ordered By: Judd Galvin on 07-24-2024 Albumin [Mass/Vol] 2.4 g/dL Low 3.4-4.8 [facility] Serum or plasma albumin/glob ulin mass ratioOrdered By: Judd Galvin on 07-24-2024 Albumin/Globulin [Mass ratio] 0.7 {ratio} Low 0.9-2.4 [facility] Serum or plasma alkaline susan sphatase measurementOrdered By: Judd Galvin on 07-24-2024 ALP [Catalytic activity/Vol] 45 U/L 35-104 [facility] Total proteinOrdered By: Velia Galvin on 07-24-2024 Protein [Mass/Vol] 6.0 g/dL 5.9-8.4 [facility] Total protein 6.0 g/dL 5.9-8.4 [facility] Basic Metabolic Profile (BMP )on 07-23-2024 BUN/CRE 19.5 RATIO Normal 10-20 [facility] Comment on above: Result Comment: AMENDED REPORT 07/23/241558 BUN/CRE previously reported as: 18.4 RATIO Performed By: #### L 500.2500, L100.0100 ####[facility] [address] [place], [address] Creatinine [Mass/Vol] 1.7 mg/dL High 0.6-1.0 [facility] Comment on above: Result Comment: AMENDED REPORT 07/23/241558 CREAT,SERUM previously reported as: 1.6 H mg/dL Performed By: #### L 500.2500, L100.0100 ####[facility] [address] [place], [address] ECRCL 26.32 ml/min Normal [facility] Comment on above: Result Comment: AMENDED REPORT 07/23/241558 Estimated CRCL previously reported as: 27.97 ml/min Performed By: #### L 500.2500, L100.0100 ####[facility] [address] [place], [address] GFR/1.73 sq M.predicted among non-blacks MDRD (S/P/Bld) [Vol rate/Area] 32 mL/min/{1.73_m2} Low >60 [facility] Comment on above: Result Comment: mL/m in/1.73m2 CKD-EPI Creatinine Equation (2020) AMENDED REPORT 07/23/241558 EST GFR previously reported as: 35 LmL/min/1.73m2 CKD-EPI Creatinine Equation (2020) Performed By: #### L 500.2500, L100.0100 ####[facility] [address] [place], [place], [address] Glucose [Mass/Vol] 80 mg/dL Normal 70-99 [facility] Comment on above: Result Comment: AMENDED REPORT 07/23/241558 GLU previously reported as: 78 mg/dL Performed By: #### L 500.2500, L100.0100 ####[facility] [address] [place], [address] Urea nitrogen [Mass/Vol] 32 mg/dL High 4-19 [facility] Comment on above: Result Comment: AMENDED REPORT 07/23/241558 BUN previously reported as: 30 H mg/dL Performed By: #### L 500.2500, L100.0100 ####[facility] [address] [place], [address] Bilirubin directOrdered By: Makenzie Montalvo on 07-23-2024 Bilirubin.direct [Mass/Vol] 0.11 mg/dL 0.00-0.30 [facility] Bilirubin.direct [Mass/Vol]O rdered By: Makenzie Montalvo on 07-23-2024 Bilirubin direct 0.11 mg/dL 0.00-0.30 [facility] CBC W/Diff, Automatedon 06-30 Absolute Lymph 0.61 X10 3/uL Low 0.83-4.51 [facility] Comment on above: Performed By: #### L 500.2500, L100.0100 ####[facility] [address] [place], [address] Absolute Neut 12.5 X10 3/uL High 2.0-7.7 [facility] Comment on above: Performed By: #### L 500.2500, L100.0100 ####[facility] [address] [place], [address] Basophils/100 WBC (Bld) 0.3 % Normal 0-1 [facility] Comment on above: Performed By: #### L 500.2500, L100.0100 ####[facility] [address] [place], [address] Eosinophils/100 WBC (Bld) 0.1 % Normal 0-5 [facility] Comment on above: Performed By: #### L 500.2500, L100.0100 ####[facility] [address] [place], [address] Erythrocyte distribution width (RBC) [Ratio] 17.2 % High 11.6-14.6 [facility] Comment on above: Performed By: #### L 500.2500, L100.0100 ####[facility] [address] [place], [address] Hematocrit (Bld) [Volume fraction] 30.1 % Low 37-47 [facility] Comment on above: Performed By: #### L 500.2500, L100.0100 ####[facility] [address] [place], [address] Hemoglobin (Bld) [Mass/Vol] 8.8 g/dL Low 12.0-15.0 [facility] Comment on above: Performed By: #### L 500.2500, L100.0100 ####[facility] [address] [place], [address] IG% 2.000 High 0.0-0.9 [facility] Comment on above: Result Comment: IG% - Immature Granulocytes (promyelocytes, myelocytes andmetamyelocytes) > 1% indicates that a LEFT SHIFT is Present. Performed By: #### L 500.2500, L100.0100 ####[facility] [address] [place], [address] Lymphocytes/100 WBC (Bld) 4.3 % Low 19-41 [facility] Comment on above: Performed By: #### L 500.2500, L100.0100 ####[facility] [address] [place], [address] MCH (RBC) [Entitic mass] 26.3 pg Low 27.0-32.0 [facility] Comment on above: Performed By: #### L 500.2500, L100.0100 ####[facility] [address] [place], [address] MCHC (RBC) [Mass/Vol] 29.2 g/dL Low 32-36 [facility] Comment on above: Performed By: #### L 500.2500, L100.0100 ####[facility] [address] [place], [address] MCV (RBC) [Entitic vol] 90.1 fL Normal 81-99 [facility] Comment on above: Performed By: #### L 500.2500, L100.0100 ####[facility] [address] [place], [address] Monocytes/100 WBC (Bld) 5.7 % Normal 0-10 [facility] Comment on above: Performed By: #### L 500.2500, L100.0100 ####[facility] [address] [place], [address] Neutrophils/100 WBC (Bld) 87.6 % High 47-70 [facility] Comment on above: Performed By: #### L 500.2500, L100.0100 ####[facility] [address], [address] Nucleated RBC (Bld) [#/Vol] 0 10*3/uL Normal 0-5 [facility] Comment on above: Performed By: #### L 500.2500, L100.0100 ####[facility] [address] [place], [address] Platelet mean volume (Bld) [Entitic vol] 8.9 fL Normal 6.2-12.0 [facility] Comment on above: Performed By: #### L 500.2500, L100.0100 ####[facility] [address] [place], [address] Platelets (Bld) [#/Vol] 347 10*3/uL Normal 150-450 [facility] Comment on above: Performed By: #### L 500.2500, L100.0100 ####[facility] [address] [place], [address] RBC (Bld) [#/Vol] 3.34 10*6/uL Low 4.2-5.4 [facility] Comment on above: Performed By: #### L 500.2500, L100.0100 ####[facility] [address] [place], [address] RDW SD 55.6 fl High 35.1-43.9 [facility] Comment on above: Performed By: #### L 500.2500, L100.0100 ####[facility] [address] [place], [address] WBC (Bld) [#/Vol] 14.3 10*3/uL High 4.4-11.0 [facility] Comment on above: Performed By: #### L 500.2500, L100.0100 ####[facility] [address] [place], [address] Chloride [Moles/Vol]Ordered By: Makenzie Montalvo on 07-23-2024 Serum or plasma chloride measurement (moles/volume) 98 mmol/L 98-107 [facility] Emergency Department Summary on 07-23-2024 Emergency Department Summary Normal [facility] H AND P Exam - Hospitaliston 07-23-2024 H&P Exam - Hospitalist Normal [facility] Liver Profileon 07-23-2024 Albumin [Mass/Vol] 2.7 g/dL Low 3.4-4.8 [facility] Comment on above: Performed By: #### L 500.3400 ####[facility] [address] [place], [address] ALK PHOS 50 U/L Normal 35-104 [facility] Comment on above: Performed By: #### L 500.3400 ####[facility] [address] [place], [address] ALT [Catalytic activity/Vol] 13 U/L Normal <=34 [facility] Comment on above: Performed By: #### L 500.3400 ####[facility] [address] [place], [address] AST [Catalytic activity/Vol] 23 U/L Normal <=31 [facility] Comment on above: Result Comment: Hemo lysis present, Results??could be affected.?? Performed By: #### L 500.3400 ####[facility] [address] [place], [address] Bilirubin [Mass/Vol] 0.30 mg/dL Normal 0.00-1.30 [facility] Comment on above: Performed By: #### L 500.3400 ####[facility] [address] [place], [address] Bilirubin.direct [Mass/Vol] 0.11 mg/dL Normal 0.00-0.30 [facility] Comment on above: Result Comment: Hemo lysis present, Results??could be affected.?? Performed By: #### L 500.3400 ####[facility] [address] [place], [address] Globulin (S) [Mass/Vol] 3.7 g/dL Normal 2.2-4.2 [facility] Comment on above: Performed By: #### L 500.3400 ####[facility] [address] [place], [address] T PROT 6.3 g/dL Normal 5.9-8.4 [facility] Comment on above: Performed By: #### L 500.3400 ####[facility] [address] [place], [address] MR/CON.PCM.GIon 07-23-2024 MR/CON.PCM.GI Normal [facility] Serum or plasma chloride claudio surement (moles/volume)Ordered By: Makenzie Montalvo on 07-23-2024 Chloride [Moles/Vol] 98 mmol/L 98-107 [facility] Stool Occult Blood iFOBon STOB Negative Normal [facility] Comment on above: Performed By: #### M 100.7900 ####[facility] [address] [place], [address] Stool gastrointestinal hemog lobin detection by immunologic methodOrdered By: Makenzie Montalvo on 07-23-2024 Lower GI hemoglobin IA Ql (Stl) [facility] Urinalysis, Completeon 07-23 BACTERIA Normal None Seen [facility] Comment on above: Order Comment: ADWOA GILLILAND TO SPECIFY Result Comment: PT D ISCHARGED Performed By: #### L 400.0001 ####[facility] [address], [address] BILIRUBIN URINE Normal Negative [facility] Comment on above: Order Comment: ADWOA GILLILAND TO SPECIFY Result Comment: PT D ISCHARGED Performed By: #### L 400.0001 ####[facility] [address] [place], [address] Clarity (U) Normal Clear [facility] Comment on above: Order Comment: COLLE CTOR TO SPECIFY Result Comment: PT D ISCHARGED Performed By: #### L 400.0001 ####[facility] [address] [place], [address] Color (U) Normal Yellow [facility] Comment on above: Order Comment: COLLE CTOR TO SPECIFY Result Comment: PT D ISCHARGED Performed By: #### L 400.0001 ####[facility] [address] [place], [address] EPI,SQUAMOUS Normal 5-10 [facility] Comment on above: Order Comment: COLLE CTOR TO SPECIFY Result Comment: PT D ISCHARGED Performed By: #### L 400.0001 ####[facility] [address] [place], [address] GLUCOSE, UR Normal Normal [facility] Comment on above: Order Comment: ADWOA CTOR TO SPECIFY Result Comment: PT D ISCHARGED Performed By: #### L 400.0001 ####[facility] [address] [place], [address] KETONE UR Normal Negative [facility] Comment on above: Order Comment: ADWOA CTOR TO SPECIFY Result Comment: PT D ISCHARGED Performed By: #### L 400.0001 ####[facility] [address] [place], [address] LEUK ESTERASE Normal Negative [facility] Comment on above: Order Comment: ADWOA CTOR TO SPECIFY Result Comment: PT D ISCHARGED Performed By: #### L 400.0001 ####[facility] [address] [place], [address] Mucus Ql (Urine sed) Normal [facility] Comment on above: Order Comment: COLLE CTOR TO SPECIFY Result Comment: PT D ISCHARGED Performed By: #### L 400.0001 ####[facility] [address] [place], [address] Nitrite Ql (U) Normal Negative [facility] Comment on above: Order Comment: ADWOA CTOR TO SPECIFY Result Comment: PT D ISCHARGED Performed By: #### L 400.0001 ####[facility] [address] [place], [address] OCCULT BLOOD-UR Normal Negative [facility] Comment on above: Order Comment: ADWOA CTOR TO SPECIFY Result Comment: PT D ISCHARGED Performed By: #### L 400.0001 ####[facility] [address] [place], [address] pH UR Normal 5.0 - 8.0 [facility] Comment on above: Order Comment: ADWOA CTOR TO SPECIFY Result Comment: PT D ISCHARGED Performed By: #### L 400.0001 ####[facility] [address] [place], [address] PROT DIPSTX Normal Negative [facility] Comment on above: Order Comment: ADWOA CTOR TO SPECIFY Result Comment: PT D ISCHARGED Performed By: #### L 400.0001 ####[facility] [address] [place], [address] RBC Normal 0-5 [facility] Comment on above: Order Comment: ADWOA CTOR TO SPECIFY Result Comment: PT D ISCHARGED Performed By: #### L 400.0001 ####[facility] [address] [place], [address] SP.GR. DIPSTX Normal 1.002-1.03 0 [facility] Comment on above: Order Comment: ADWOA CTOR TO SPECIFY Result Comment: PT D ISCHARGED Performed By: #### L 400.0001 ####[facility] [address] [place], [address] UR Preservative Normal [facility] Comment on above: Order Comment: ADWOA CTOR TO SPECIFY Result Comment: PT D ISCHARGED Performed By: #### L 400.0001 ####[facility] [address] [place], [address] UROBILI Normal Normal [facility] Comment on above: Order Comment: COLLE CTOR TO SPECIFY Result Comment: PT D ISCHARGED Performed By: #### L 400.0001 ####[facility] [address] [place], [address] WBC Normal 0-5 [facility] Comment on above: Order Comment: COLLE CTOR TO SPECIFY Result Comment: PT D ISCHARGED Performed By: #### L 400.0001 ####[facility] [address] [place], [address] 12 Lead EKGon 07-18-2024 12 Lead EKG Normal [facility] ALP [Catalytic activity/Vol] Ordered By: Sheldon Toribio on 07-18-2024 Serum or plasma alkaline phosphatase measurement 48 U/L 45-117 [facility] ALT [Catalytic activity/Vol] Ordered By: Sheldon Toribio on 07-18-2024 Serum or plasma alanine aminotransferase (ALT) measurement 14 U/L 13-56 [facility] Absolute lymphocyte countOrd ered By: Sheldon Toribio on 07-18-2024 Lymphocytes Auto (Unsp spec) [#/Vol] 0.54 10*3/uL Low 0.83-4.51 [facility] Absolute neutrophil countOrd ered By: Sheldon Toribio on 07-18-2024 Absolute neutrophil count 6.7 X10^3/uL 2.0-7.7 [facility] Albumin [Mass/Vol]Ordered By : Sheldon Toribio on 07-18-2024 Serum or plasma albumin measurement (mass/volume) 2.0 g/dL Low 3.2-5.0 [facility] Albumin to globulin ratioOrd ered By: Sheldon Toribio on 07-18-2024 Albumin to globulin ratio 0.4 RATIO Low 0.9-2.4 [facility] Antigen C Gammacloneon 07-18 ANTIGEN ID Negative Normal [facility] Comment on above: Performed By: #### B AGC ####[facility] [address] [place], [place], [address] Performed By: #### B AGK ####[facility] [address] [place], [address] Antigen E Gammacloneon 07-18 ANTIGEN ID Positive Normal [facility] Comment on above: Performed By: #### B AGE ####[facility] [address] [place], [place], [address] Antigen Fyaon 07-18-2024 ANTIGEN ID Negative Normal [facility] Comment on above: Performed By: #### B AGFYA ####[facility] [address] [place], [address] Automated lymphocyte count a s percentage of total leukocytesOrdered By: Sheldon Toribio on 07-18-2024 Lymphocytes/100 WBC Auto (Unsp spec) 6.6 % Low 19-41 [facility] [id number] 07-18-2024 ANTIBODY ID Normal [facility] Comment on above: Order Comment: AN Result Comment: CFYA WARM Performed By: #### L 100.0100, L503.6005, BTS, L500.4050, [id number], L501.4020 ####[facility] [address] [place], [place], [address] Base excess Calc (BldV) [Mol es/Vol]Ordered By: Shedlon Toribio on 07-18-2024 Blood base excess determination 10 mmol/L High -2-2 [facility] Basophil percentageOrdered B y: Sheldon Toribio on 07-18-2024 Basophils/100 WBC (Bld) 0.2 % 0-1 [facility] Basophil percentage 0.2 % 0-1 [facility] Bilirubin, totalOrdered By: Sheldon Toribio on 07-18-2024 Bilirubin [Mass/Vol] 0.30 mg/dL 0.20-1.00 [facility] Bilirubin, total 0.30 mg/dL 0.20-1.00 [facility] Blood Gases by CPSon 025 Base excess Calc (Bld) [Moles/Vol] 10 mmol/L High -2 to +2 [facility] Comment on above: Performed By: #### L 0.0800 ####[facility] [address] [place], [address] Blood Gas Type ART Normal [facility] Comment on above: Performed By: #### L 0.08 ####[facility] [address] [place], [address] CO2 [Moles/Vol] 35 mmol/L Normal [facility] Comment on above: Performed By: #### L 0.0800 ####[facility] [address] [place], [address] FI02 3.0 Normal [facility] Comment on above: Performed By: #### L 0.0800 ####[facility] [address] [place], [address] HCO3 (Bld) [Moles/Vol] 33.3 mmol/L High 22-26 [facility] Comment on above: Performed By: #### L 0.0800 ####[facility] [address] [place], [address] Mode Not entered [facility] Comment on above: Performed By: #### L 0.0800 ####[facility] [address] [place], [address] O2 Delivery Dev Cannula Normal [facility] Comment on above: Performed By: #### L 0.0800 ####[facility] [address] [place], [address] pCO2 42.4 mmHg Normal 35-45 [facility] Comment on above: Performed By: #### L 0.0800 ####[facility] [address] [place], [address] pH (Bld) 7.50 [pH] High 7.35-7.45 [facility] Comment on above: Performed By: #### L 0.0800 ####[facility] [address] [place], [address] PO2 82 mmHG Normal 75-100 [facility] Comment on above: Performed By: #### L 0.0800 ####[facility] [address] [place], [address] SITE L Brach Normal [facility] Comment on above: Performed By: #### L 0.0800 ####[facility] [address] [place], [address] SO2 97 Normal 95-99 [facility] Comment on above: Performed By: #### L 0.0800 ####[facility] [address] [place], [address] Blood base excess determinat ionOrdered By: Sheldon Catarino on 07-18-2024 Base excess Calc (BldV) [Moles/Vol] 10 mmol/L High -2-2 [facility] Blood bicarbonate measuremen tOrdered By: Sheldon Toribio on 07-18-2024 HCO3 (Bld) [Moles/Vol] 33.3 mmol/L High - [facility] Blood bicarbonate measurement 33.3 mmol/L High [facility] Blood urea nitrogen (BUN)/cr eatinine ratioOrdered By: Sheldon Toribio on 07-18-2024 Blood urea nitrogen (BUN)/creatinine ratio 14.8 RATIO 03-17 [facility] CBC W/Diff, Automatedon 06-30 Absolute Lymph 0.54 X10 3/uL Low 0.83-4.51 [facility] Comment on above: Performed By: #### L 100.0100, L503.6005, BTS, L500.4050, [id number], L501.4020 ####[facility] [address] [place], [address] Absolute Neut 6.7 X10 3/uL Normal 2.0-7.7 [facility] Comment on above: Performed By: #### L 100.0100, L503.6005, BTS, L500.4050, [id number], L501.4020 ####[facility] [address] [place], [address] Basophils/100 WBC (Bld) 0.2 % Normal 0-1 [facility] Comment on above: Performed By: #### L 100.0100, L503.6005, BTS, L500.4050, [id number], L501.4020 ####[facility] [address] [place], [address] Eosinophils/100 WBC (Bld) 0.7 % Normal 0-5 [facility] Comment on above: Performed By: #### L 100.0100, L503.6005, BTS, L500.4050, [id number], L501.4020 ####[facility] [address] [place], [address] Erythrocyte distribution width (RBC) [Ratio] 16.8 % High 11.6-14.6 [facility] Comment on above: Performed By: #### L 100.0100, L503.6005, BTS, L500.4050, [id number], L501.4020 ####[facility] [address] [place], [address] Hematocrit (Bld) [Volume fraction] 32.7 % Low 37-47 [facility] Comment on above: Performed By: #### L 100.0100, L503.6005, BTS, L500.4050, [id number], L501.4020 ####[facility] [address] [place], [address] Hemoglobin (Bld) [Mass/Vol] 9.7 g/dL Low 12.0-15.0 [facility] Comment on above: Performed By: #### L 100.0100, L503.6005, BTS, L500.4050, [id number], L501.4020 ####[facility] [address] [place], [address] IG% 1.700 High 0.0-0.9 [facility] Comment on above: Result Comment: IG% - Immature Granulocytes (promyelocytes, myelocytes andmetamyelocytes) > 1% indicates that a LEFT SHIFT is Present. Performed By: #### L 100.0100, L503.6005, BTS, L500.4050, [id number], L501.4020 ####[facility] [address] [place], [address] Lymphocytes/100 WBC (Bld) 6.6 % Low 19-41 [facility] Comment on above: Performed By: #### L 100.0100, L503.6005, BTS, L500.4050, [id number], L501.4020 ####[facility] [address] [place], [address] MCH (RBC) [Entitic mass] 26.6 pg Low 27.0-32.0 [facility] Comment on above: Performed By: #### L 100.0100, L503.6005, BTS, L500.4050, [id number], L501.4020 ####[facility] [address] [place], [address] MCHC (RBC) [Mass/Vol] 29.7 g/dL Low 32-36 [facility] Comment on above: Performed By: #### L 100.0100, L503.6005, BTS, L500.4050, [id number], L501.4020 ####[facility] [address] [place], [address] MCV (RBC) [Entitic vol] 89.6 fL Normal 81-99 [facility] Comment on above: Performed By: #### L 100.0100, L503.6005, BTS, L500.4050, [id number], L501.4020 ####[facility] [address] [place], [address] Monocytes/100 WBC (Bld) 9.7 % Normal 0-10 [facility] Comment on above: Performed By: #### L 100.0100, L503.6005, BTS, L500.4050, EZMK2557, L501.4020 ####[facility] [address] [place], [address] Neutrophils/100 WBC (Bld) 81.1 % High 47-70 [facility] Comment on above: Performed By: #### L 100.0100, L503.6005, BTS, L500.4050, ADZV5483, L501.4020 ####[facility] [address] [place], [address] Nucleated RBC (Bld) [#/Vol] 0 10*3/uL Normal 0-5 [facility] Comment on above: Performed By: #### L 100.0100, L503.6005, BTS, L500.4050, JAHT6059, L501.4020 ####[facility] [address] [place], [address] Platelet mean volume (Bld) [Entitic vol] 9.0 fL Normal 6.2-12.0 [facility] Comment on above: Performed By: #### L 100.0100, L503.6005, BTS, L500.4050, [id number], L501.4020 ####[facility] [address] [place], [address] Platelets (Bld) [#/Vol] 281 10*3/uL Normal 150-450 [facility] Comment on above: Performed By: #### L 100.0100, L503.6005, BTS, L500.4050, NWCD4287, L501.4020 ####[facility] [address] [place], [address] RBC (Bld) [#/Vol] 3.65 10*6/uL Low 4.2-5.4 [facility] Comment on above: Performed By: #### L 100.0100, L503.6005, BTS, L500.4050, AZID1302, L501.4020 ####[facility] [address] [place], [address] RDW SD 54.5 fl High 35.1-43.9 [facility] Comment on above: Performed By: #### L 100.0100, L503.6005, BTS, L500.4050, [id number], L501.4020 ####[facility] [address] [place], [address] WBC (Bld) [#/Vol] 8.2 10*3/uL Normal 4.4-11.0 [facility] Comment on above: Performed By: #### L 100.0100, L503.6005, BTS, L500.4050, [id number], L501.4020 ####[facility] [address] [place], [address] CTA Abd/Pelvis W/WO Contrast on 07-18-2024 CTA Abd/Pelvis W/WO Contrast Normal [facility] Calcium [Mass/Vol]Ordered By : Sheldon Toribio on 07-18-2024 Serum or plasma calcium measurement (mass/volume) 8.7 mg/dL 8.5-10.1 [facility] Carbon dioxide measurementOr dered By: Sheldon Toribio on 07-18-2024 CO2 [Moles/Vol] 34.0 mmol/L High 21.0-32.0 [facility] Carbon dioxide measurement 34.0 mmol/L High 21.0-32.0 [facility] Chloride measurementOrdered By: Sheldon Toribio on 07-18-2024 Chloride [Moles/Vol] 97 mmol/L Low 98-107 [facility] Chloride measurement 97 mmol/L Low 98-107 [facility] Comprehensive Metabolic Prof ilon 07-18-2024 Albumin [Mass/Vol] 2.0 g/dL Low 3.2-5.0 [facility] Comment on above: Order Comment: 'TROP ' Serial specimen #1, #2 or #3: 1 Performed By: #### L 100.0100, L503.6005, BTS, L500.4050, [id number], L501.4020 ####[facility] [address] [place], [address] Albumin/Globulin [Mass ratio] 0.4 {ratio} Low 0.9-2.4 [facility] Comment on above: Order Comment: 'TROP ' Serial specimen #1, #2 or #3: 1 Performed By: #### L 100.0100, L503.6005, BTS, L500.4050, [id number], L501.4020 ####[facility] [address] [place], [address] ALK P 48 U/L Normal 45-117 [facility] Comment on above: Order Comment: 'TROP ' Serial specimen #1, #2 or #3: 1 Performed By: #### L 100.0100, L503.6005, BTS, L500.4050, [id number], L501.4020 ####[facility] [address] [place], [address] ALT [Catalytic activity/Vol] 14 U/L Normal 13-56 [facility] Comment on above: Order Comment: 'TROP ' Serial specimen #1, #2 or #3: 1 Performed By: #### L 100.0100, L503.6005, BTS, L500.4050, [id number], L501.4020 ####[facility] [address] [place], [address] AST [Catalytic activity/Vol] 18 U/L Normal 15-37 [facility] Comment on above: Order Comment: 'TROP ' Serial specimen #1, #2 or #3: 1 Performed By: #### L 100.0100, L503.6005, BTS, L500.4050, [id number], L501.4020 ####[facility] [address] [place], [address] Bilirubin [Mass/Vol] 0.30 mg/dL Normal 0.20-1.00 [facility] Comment on above: Order Comment: 'TROP ' Serial specimen #1, #2 or #3: 1 Result Comment: For patients on eltrombopag therapy, use of Dimension [place] TBIL is not recommended. Performed By: #### L 100.0100, L503.6005, BTS, L500.4050, [id number], L501.4020 ####[facility] [address] [place], [address] BUN/CRE 14.8 RATIO Normal 10-20 [facility] Comment on above: Order Comment: 'TROP ' Serial specimen #1, #2 or #3: 1 Performed By: #### L 100.0100, L503.6005, BTS, L500.4050, DAVJ0566, L501.4020 ####[facility] [address] [place], [address] CA,Total 8.7 mg/dL Normal 8.5-10.1 [facility] Comment on above: Order Comment: 'TROP ' Serial specimen #1, #2 or #3: 1 Performed By: #### L 100.0100, L503.6005, BTS, L500.4050, [id number], L501.4020 ####[facility] [address] [place], [address] Chloride [Moles/Vol] 97 mmol/L Low 98-107 [facility] Comment on above: Order Comment: 'TROP ' Serial specimen #1, #2 or #3: 1 Performed By: #### L 100.0100, L503.6005, BTS, L500.4050, PRVC3021, L501.4020 ####[facility] [address] [place], [address] CO2 [Moles/Vol] 34.0 mmol/L High 21.0-32.0 [facility] Comment on above: Order Comment: 'TROP ' Serial specimen #1, #2 or #3: 1 Performed By: #### L 100.0100, L503.6005, BTS, L500.4050, [id number], L501.4020 ####[facility] [address] [place], [address] Creatinine [Mass/Vol] 1.69 mg/dL High 0.55-1.02 [facility] Comment on above: Order Comment: 'TROP ' Serial specimen #1, #2 or #3: 1 Result Comment: The validity of the calculated GFR GFRAA in patients over70 years has not been determined. Clinical correlation isessential. Performed By: #### L 100.0100, L503.6005, BTS, L500.4050, [id number], L501.4020 ####[facility] [address] [place], [address] ECRCL 26.75 ml/min Normal [facility] Comment on above: Order Comment: 'TROP ' Serial specimen #1, #2 or #3: 1 Performed By: #### L 100.0100, L503.6005, BTS, L500.4050, [id number], L501.4020 ####[facility] [address] [place], [address] EST GFR - AA 39 mL/min Low >60 [facility] Comment on above: Order Comment: 'TROP ' Serial specimen #1, #2 or #3: 1 Result Comment: Afri can [place] GFR Calc Performed By: #### L 100.0100, L503.6005, BTS, L500.4050, UKCQ0087, L501.4020 ####[facility] [address] [place], [address] GAP 4 Low 5-15 [facility] Comment on above: Order Comment: 'TROP ' Serial specimen #1, #2 or #3: 1 Performed By: #### L 100.0100, L503.6005, BTS, L500.4050, [id number], L501.4020 ####[facility] [address] [place], [address] GFR/1.73 sq M.predicted among non-blacks MDRD (S/P/Bld) [Vol rate/Area] 33 mL/min/{1.73_m2} Low >60 [facility] Comment on above: Order Comment: 'TROP ' Serial specimen #1, #2 or #3: 1 Result Comment: Non- GFR Calc Performed By: #### L 100.0100, L503.6005, BTS, L500.4050, [id number], L501.4020 ####[facility] [address] [place], [address] Globulin (S) [Mass/Vol] 5.1 g/dL High 2.2-4.2 [facility] Comment on above: Order Comment: 'TROP ' Serial specimen #1, #2 or #3: 1 Performed By: #### L 100.0100, L503.6005, BTS, L500.4050, [id number], L501.4020 ####[facility] [address] [place], [address] Glucose [Mass/Vol] 89 mg/dL Normal 74-106 [facility] Comment on above: Order Comment: 'TROP ' Serial specimen #1, #2 or #3: 1 Performed By: #### L 100.0100, L503.6005, BTS, L500.4050, [id number], L501.4020 ####[facility] [address] [place], [address] Potassium [Moles/Vol] 4.1 mmol/L Normal 3.5-5.1 [facility] Comment on above: Order Comment: 'TROP ' Serial specimen #1, #2 or #3: 1 Performed By: #### L 100.0100, L503.6005, BTS, L500.4050, [id number], L501.4020 ####[facility] [address] [place], [address] Sodium [Moles/Vol] 135 mmol/L Low 136-145 [facility] Comment on above: Order Comment: 'TROP ' Serial specimen #1, #2 or #3: 1 Performed By: #### L 100.0100, L503.6005, BTS, L500.4050, [id number], L501.4020 ####[facility] [address] [place], [address] T PROT 7.1 g/dL Normal 6.4-8.2 [facility] Comment on above: Order Comment: 'TROP ' Serial specimen #1, #2 or #3: 1 Performed By: #### L 100.0100, L503.6005, BTS, L500.4050, [id number], L501.4020 ####[facility] [address] [place], [address] Urea nitrogen [Mass/Vol] 25 mg/dL High 7-18 [facility] Comment on above: Order Comment: 'TROP ' Serial specimen #1, #2 or #3: 1 Performed By: #### L 100.0100, L503.6005, BTS, L500.4050, [id number], L501.4020 ####[facility] [address] [place], [address] Creatinine [Mass/Vol]Ordered By: Sheldon Toribio on 07-18-2024 Serum or plasma creatinine measurement (mass/volume) 1.69 mg/dL High 0.55-1.02 [facility] Determination of fraction of inspired oxygenOrdered By: Sheldon Toribio on 07-18-2024 Determination of fraction of inspired oxygen 3.0 [facility] Emergency Department Summary on 07-18-2024 Emergency Department Summary Normal [facility] Eosinophil percentageOrdered By: Sheldon Toribio on 07-18-2024 Eosinophils/100 WBC (Bld) 0.7 % 0-5 [facility] Eosinophil percentage 0.7 % 0-5 [facility] Erythrocyte distribution wid th (RBC) [Ratio]Ordered By: Sheldon Toribio on 07-18-2024 Erythrocyte distribution width ratio 16.8 % High 11.6-14.6 [facility] Erythrocyte distribution wid th ratioOrdered By: Sheldon Toribio on 07-18-2024 Erythrocyte distribution width (RBC) [Ratio] 16.8 % High 11.6-14.6 [facility] Erythrocyte distribution wid th standard deviationOrdered By: Sheldon Toribio on 07-18-2024 Erythrocyte distribution width (RBC) [Ratio] 54.5 fl High 35.1-43.9 [facility] Erythrocyte distribution width standard deviation 54.5 fl High 35.1-43.9 [facility] Estimated glomerular filtrat ion rate (GFR) AmericanOrdered By: Sheldon Toribio on 07-18-2024 Estimated glomerular filtration rate (GFR) 39 mL/min Low >60 [facility] Estimation of creatinine austen aranceOrdered By: Sheldon Toribio on 07-18-2024 Estimation of creatinine clearance 26.75 ml/min [facility] Gastroenterology Visit Repor ton 07-18-2024 Gastroenterology Visit Report Normal [facility] Glomerular filtration rate ( GFR) estimationOrdered By: Sheldon Toribio on 07-18-2024 GFR/1.73 sq M.predicted among non-blacks MDRD (S/P/Bld) [Vol rate/Area] 33 mL/min/{1.73_m2} Low >60 [facility] Glomerular filtration rate (GFR) estimation 33 mL/min Low >60 [facility] Glucose measurementOrdered B y: Sheldon Toribio on 07-18-2024 Glucose [Mass/Vol] 89 mg/dL 74-106 [facility] Glucose measurement 89 mg/dL 74-106 [facility] Hematocrit Auto (Bld) [Volum e fraction]Ordered By: Sheldon Toribio on 07-18-2024 Hematocrit (Bld) [Volume fraction] 32.7 % Low 37-47 [facility] Automated blood hematocrit (percentage) 32.7 % Low 37-47 [facility] Hemoglobin measurementOrdere d By: Sheldon Toribio on 07-18-2024 Hemoglobin (Bld) [Mass/Vol] 9.7 g/dL Low 12.0-15.0 [facility] Hemoglobin measurement 9.7 g/dL Low 12.0-15.0 [facility] Immature granulocytes/100 WB C Auto (Bld)Ordered By: Sheldon Toribio on 07-18-2024 Immature granulocytes/100 WBC (Bld) 1.700 % High 0.0-0.9 [facility] Automated immature granulocyte percentage 1.700 % High 0.0-0.9 [facility] L501.4020on 07-18-2024 TROPONIN-I HS 24 pg/mL Normal 3.0-54.0 [facility] Comment on above: Order Comment: 'TROP ' Serial specimen #1, #2 or #3: 1 Result Comment: Jorge L patterson Note: New Test Units and Gender Specific Reference Ranges. For more information see Policy Stat Procedure [place] High Sensitivity Troponin (TNIH) and attachments. Performed By: #### L 100.0100, L503.6005, BTS, L500.4050, [id number], L501.4020 ####[facility] [address] [place], [place], [address] Lactic Acidon 07-18-2024 Lactate [Moles/Vol] 1.3 mmol/L Normal 0.4-1.9 [facility] Comment on above: Order Comment: Y Performed By: #### L 100.0100, L503.6005, BTS, L500.4050, [id number], L501.4020 ####[facility] [address] [place], [place], [id number] Lactic acid measurementOrder ed By: Sheldon Toribio on 07-18-2024 Lactic acid measurement 1.3 mmol/L 0.4-2.0 [facility] Lymphocytes Auto (Unsp spec) [#/Vol]Ordered By: Sheldon Toribio on 07-18-2024 Absolute lymphocyte count 0.54 X10^3/uL Low 0.83-4.51 [facility] Lymphocytes/100 WBC Auto (Un sp spec)Ordered By: Sheldon Toribio on 07-18-2024 Automated lymphocyte count as percentage of total leukocytes 6.6 % Low 19-41 [facility] MCV (RBC) [Entitic vol]Order ed By: Sheldon Toribio on 07-18-2024 MCV (mean corpuscular volume) determination 89.6 fL 81-99 [facility] MCV (mean corpuscular volume ) determinationOrdered By: Sheldon Toribio on 07-18-2024 MCV (RBC) [Entitic vol] 89.6 fL 81-99 [facility] Mean corpuscular hemoglobin (MCH) determinationOrdered By: Sheldon Toribio on 07-18-2024 MCH (RBC) [Entitic mass] 26.6 pg Low 27.0-32.0 [facility] Mean corpuscular hemoglobin (MCH) determination 26.6 pg Low 27.0-32.0 [facility] Mean corpuscular hemoglobin concentration (MCHC) determinationOrdered By: Sheldon Toribio on 07-18-2024 Mean corpuscular hemoglobin concentration (MCHC) determination 29.7 g/dL Low 32-36 [facility] Mean platelet volume determi nationOrdered By: Sheldon Toribio on 07-18-2024 Mean platelet volume determination 9.0 fl 6.2-12.0 [facility] Measurement, pHOrdered By: Gildardo Toribio on 07-18-2024 pH (Unsp spec) 7.50 [pH] High 7.35-7.45 [facility] Monocyte percentageOrdered B y: Sheldon Toribio on 07-18-2024 Monocytes/100 WBC (Bld) 9.7 % 0-10 [facility] Monocyte percentage 9.7 % 0-10 [facility] Neutrophil percentageOrdered By: Sheldon Toribio on 07-18-2024 Neutrophils/100 WBC (Bld) 81.1 % High 47-70 [facility] Neutrophil percentage 81.1 % High 47-70 [facility] No Panel InformationOrdered By: Sheldon Toribio on 07-18-2024 ART [facility] L Brach [facility] Not entered [facility] Cannula [facility] 18 U/L 15-37 [facility] Nucleated red blood cell per centageOrdered By: Sheldon Toribio on 07-18-2024 Nucleated red blood cell percentage 0 % 0-5 [facility] Oxygen saturation measuremen tOrdered By: Sheldon Toribio on 07-18-2024 Oxygen saturation measurement 97 % 95-99 [facility] Partial pressure of carbon d ioxide measurementOrdered By: Sheldon Toribio on 07-18-2024 Partial pressure of carbon dioxide measurement 42.4 mmHg 35-45 [facility] Partial pressure of oxygen m easurementOrdered By: Sheldon Toribio on 07-18-2024 Partial pressure of oxygen measurement 82 mmHG 75-100 [facility] Platelet countOrdered By: Savana Toribio on 07-18-2024 Platelets (Bld) [#/Vol] 281 10*3/uL 150-450 [facility] Platelet count 281 K/mm3 150-450 [facility] Potassium measurementOrdered By: Sheldon Toribio on 07-18-2024 Potassium [Moles/Vol] 4.1 mmol/L 3.5-5.1 [facility] Potassium measurement 4.1 mmol/L 3.5-5.1 [facility] RBC Auto (Bld) [#/Vol]Ordere d By: Sheldon Toribio on 07-18-2024 RBC (Bld) [#/Vol] 3.65 10*6/uL Low 4.2-5.4 [facility] Automated blood erythrocyte count 3.65 M/mm3 Low 4.2-5.4 [facility] Serum anion gap measurementO rdered By: Sheldon Toribio on 07-18-2024 Serum anion gap measurement 4 Low 5-15 [facility] Serum globulin measurementOr dered By: Sheldon Toribio on 07-18-2024 Globulin (S) [Mass/Vol] 5.1 g/dL High 2.2-4.2 [facility] Serum globulin measurement 5.1 g/dL High 2.2-4.2 [facility] Serum or plasma alanine camargo otransferase (ALT) measurementOrdered By: Sheldon Toribio on 07-18-2024 ALT [Catalytic activity/Vol] 14 U/L 13-56 [facility] Serum or plasma albumin megan urement (mass/volume)Ordered By: Sheldon Toribio on 07-18-2024 Albumin [Mass/Vol] 2.0 g/dL Low 3.2-5.0 [facility] Serum or plasma alkaline susan sphatase measurementOrdered By: Sheldon Toribio on 07-18-2024 ALP [Catalytic activity/Vol] 48 U/L 45-117 [facility] Serum or plasma calcium megan urement (mass/volume)Ordered By: Sheldon Toribio on 07-18-2024 Calcium [Mass/Vol] 8.7 mg/dL 8.5-10.1 [facility] Serum or plasma creatinine m easurement (mass/volume)Ordered By: Sheldon Toribio on 07-18-2024 Creatinine [Mass/Vol] 1.69 mg/dL High 0.55-1.02 [facility] Serum or plasma urea nitroge n measurement (mass/volume)Ordered By: Sheldon Toribio on 07-18-2024 Urea nitrogen [Mass/Vol] 25 mg/dL High 7-18 [facility] Sodium levelOrdered By: Sheldon Toribio on 07-18-2024 Sodium [Moles/Vol] 135 mmol/L Low 136-145 [facility] Sodium level 135 mmol/L Low 136-145 [facility] Total carbon dioxide measure mentOrdered By: Sheldno Toribio on 07-18-2024 CO2 [Moles/Vol] 35 mmol/L [facility] Total carbon dioxide measurement 35 mmol/L [facility] Total proteinOrdered By: Sheldon Toribio on 07-18-2024 Protein [Mass/Vol] 7.1 g/dL 6.4-8.2 [facility] Total protein 7.1 g/dL 6.4-8.2 [facility] Troponin IOrdered By: Sheldon hall on 07-18-2024 Troponin I 24 pg/mL 3.0-54.0 [facility] Troponin I 24 pg/mL 3.0-54.0 [facility] Type AND Screenon 07-18-2024 ABO and Rh group Nom (Bld) Blood group O Rh(D) positive Normal [facility] Comment on above: Order Comment: AN Performed By: #### L 100.0100, L503.6005, BTS, L500.4050, [id number], L501.4020 ####[facility] [address] [place], [place], [id number] Urea nitrogen [Mass/Vol]Orde red By: Sheldon Toribio on 07-18-2024 Serum or plasma urea nitrogen measurement (mass/volume) 25 mg/dL High 7-18 [facility] White blood cell (WBC) count Ordered By: Sheldon Toribio on 07-18-2024 WBC (Bld) [#/Vol] 8.2 10*3/uL 4.4-11.0 [facility] White blood cell (WBC) count 8.2 K/mm3 4.4-11.0 [facility] pH (Unsp spec)Ordered By: Savana Toribio on 07-18-2024 Measurement, pH 7.50 High 7.35-7.45 [facility] Absolute lymphocyte countOrd ered By: Millie Massey on 06-25-2024 Lymphocytes Auto (Unsp spec) [#/Vol] 0.69 10*3/uL Low 0.83-4.51 [facility] Absolute neutrophil countOrd ered By: Millie Massey on 06-25-2024 Absolute neutrophil count 2.8 X10^3/uL 2.0-7.7 [facility] Automated lymphocyte count a s percentage of total leukocytesOrdered By: Millie Massey on 06-25-2024 Lymphocytes/100 WBC Auto (Unsp spec) 15.6 % Low 19-41 [facility] Basic Metabolic Profile (BMP )on 06-25-2024 BUN/CRE 15.7 RATIO Normal 10-20 [facility] Comment on above: Order Comment: 103.1 Performed By: #### L 501.9520, L500.2500, L100.0100 ####[facility] [address] [place], [address] CA,Total 8.5 mg/dL Normal 8.5-10.1 [facility] Comment on above: Order Comment: 103.1 Performed By: #### L 501.9520, L500.2500, L100.0100 ####[facility] [address] [place], [address] Chloride [Moles/Vol] 104 mmol/L Normal 98-107 [facility] Comment on above: Order Comment: 103.1 Performed By: #### L 501.9520, L500.2500, L100.0100 ####[facility] [address] [place], [address] CO2 [Moles/Vol] 29.0 mmol/L Normal 21.0-32.0 [facility] Comment on above: Order Comment: 103.1 Performed By: #### L [id number], L500.2500, L100.0100 ####[facility] [address] [place], [address] Creatinine [Mass/Vol] 2.48 mg/dL High 0.55-1.02 [facility] Comment on above: Order Comment: 103.1 Result Comment: The validity of the calculated GFR GFRAA in patients over70 years has not been determined. Clinical correlation isessential. Performed By: #### L 501.9520, L500.2500, L100.0100 ####[facility] [address] [place], [address] EST GFR - AA 25 mL/min Low >60 [facility] Comment on above: Order Comment: 103.1 Result Comment: Afri can Singaporean GFR Calc Performed By: #### L 501.9520, L500.2500, L100.0100 ####[facility] [address] [place], [address] GAP 3 Low 5-15 [facility] Comment on above: Order Comment: 103.1 Performed By: #### L 501.9520, L500.2500, L100.0100 ####[facility] [address] [place], [address] GFR/1.73 sq M.predicted among non-blacks MDRD (S/P/Bld) [Vol rate/Area] 21 mL/min/{1.73_m2} Low >60 [facility] Comment on above: Order Comment: 103.1 Result Comment: Non- GFR Calc Performed By: #### L 501.9520, L500.2500, L100.0100 ####[facility] [address] [place], [address] Glucose [Mass/Vol] 84 mg/dL Normal 74-106 [facility] Comment on above: Order Comment: 103.1 Performed By: #### L 501.9520, L500.2500, L100.0100 ####[facility] [address] [place], [address] Potassium [Moles/Vol] 4.6 mmol/L Normal 3.5-5.1 [facility] Comment on above: Order Comment: 103.1 Performed By: #### L 501.9520, L500.2500, L100.0100 ####[facility] [address] [place], [address] Sodium [Moles/Vol] 136 mmol/L Normal 136-145 [facility] Comment on above: Order Comment: 103.1 Performed By: #### L 501.9520, L500.2500, L100.0100 ####[facility] [address] [place], [address] Urea nitrogen [Mass/Vol] 39 mg/dL High 7-18 [facility] Comment on above: Order Comment: 103.1 Performed By: #### L 501.9520, L500.2500, L100.0100 ####[facility] [address] [place], [address] Basophil percentageOrdered B y: Millie Massey on 06-25-2024 Basophils/100 WBC (Bld) 0.7 % 0-1 [facility] Basophil percentage 0.7 % 0-1 [facility] Blood urea nitrogen (BUN)/cr eatinine ratioOrdered By: Millie Ludivika on 06-25-2024 Blood urea nitrogen (BUN)/creatinine ratio 15.7 RATIO 10-20 [facility] CBC W/Diff, Automatedon 05-30 Absolute Lymph 0.69 X10 3/uL Low 0.83-4.51 [facility] Comment on above: Order Comment: 103.1 Performed By: #### L 501.9520, L500.2500, L100.0100 ####[facility] [address] [place], [address] Absolute Neut 2.8 X10 3/uL Normal 2.0-7.7 [facility] Comment on above: Order Comment: 103.1 Performed By: #### L 501.9520, L500.2500, L100.0100 ####[facility] [address] [place], [address] Basophils/100 WBC (Bld) 0.7 % Normal 0-1 [facility] Comment on above: Order Comment: 103.1 Performed By: #### L 501.9520, L500.2500, L100.0100 ####[facility] [address] [place], [address] Eosinophils/100 WBC (Bld) 3.2 % Normal 0-5 [facility] Comment on above: Order Comment: 103.1 Performed By: #### L 501.9520, L500.2500, L100.0100 ####[facility] [address] [place], [address] Erythrocyte distribution width (RBC) [Ratio] 16.0 % High 11.6-14.6 [facility] Comment on above: Order Comment: 103.1 Performed By: #### L 501.9520, L500.2500, L100.0100 ####[facility] [address] [place], [address] Hematocrit (Bld) [Volume fraction] 31.2 % Low 37-47 [facility] Comment on above: Order Comment: 103.1 Performed By: #### L 501.9520, L500.2500, L100.0100 ####[facility] [address] [place], [address] Hemoglobin (Bld) [Mass/Vol] 9.4 g/dL Low 12.0-15.0 [facility] Comment on above: Order Comment: 103.1 Performed By: #### L 501.9520, L500.2500, L100.0100 ####[facility] [address] [place], [address] IG% 2.900 High 0.0-0.9 [facility] Comment on above: Order Comment: 103.1 Result Comment: IG% - Immature Granulocytes (promyelocytes, myelocytes andmetamyelocytes) > 1% indicates that a LEFT SHIFT is Present. Performed By: #### L 501.9520, L500.2500, L100.0100 ####[facility] [address] [place], [address] Lymphocytes/100 WBC (Bld) 15.6 % Low 19-41 [facility] Comment on above: Order Comment: 103.1 Performed By: #### L 501.9520, L500.2500, L100.0100 ####[facility] [address] [place], [address] MCH (RBC) [Entitic mass] 27.1 pg Normal 27.0-32.0 [facility] Comment on above: Order Comment: 103.1 Performed By: #### L 501.9520, L500.2500, L100.0100 ####[facility] [address] [place], [address] MCHC (RBC) [Mass/Vol] 30.1 g/dL Low 32-36 [facility] Comment on above: Order Comment: 103.1 Performed By: #### L 501.9520, L500.2500, L100.0100 ####[facility] [address] [place], [address] MCV (RBC) [Entitic vol] 89.9 fL Normal 81-99 [facility] Comment on above: Order Comment: 103.1 Performed By: #### L 501.9520, L500.2500, L100.0100 ####[facility] [address] [place], [address] Monocytes/100 WBC (Bld) 13.8 % High 0-10 [facility] Comment on above: Order Comment: 103.1 Performed By: #### L 501.9520, L500.2500, L100.0100 ####[facility] [address] [place], [address] Neutrophils/100 WBC (Bld) 63.8 % Normal 47-70 [facility] Comment on above: Order Comment: 103.1 Performed By: #### L 501.9520, L500.2500, L100.0100 ####[facility] [address] [place], [address] Nucleated RBC (Bld) [#/Vol] 0 10*3/uL Normal 0-5 [facility] Comment on above: Order Comment: 103.1 Performed By: #### L 501.9520, L500.2500, L100.0100 ####[facility] [address] [place], [address] Platelet mean volume (Bld) [Entitic vol] 9.4 fL Normal 6.2-12.0 [facility] Comment on above: Order Comment: 103.1 Performed By: #### L 501.9520, L500.2500, L100.0100 ####[facility] [address] [place], [address] Platelets (Bld) [#/Vol] 142 10*3/uL Low 150-450 [facility] Comment on above: Order Comment: 103.1 Performed By: #### L 501.9520, L500.2500, L100.0100 ####[facility] [address] [place], [address] RBC (Bld) [#/Vol] 3.47 10*6/uL Low 4.2-5.4 [facility] Comment on above: Order Comment: 103.1 Performed By: #### L 501.9520, L500.2500, L100.0100 ####[facility] [address] [place], [address] RDW SD 52.8 fl High 35.1-43.9 [facility] Comment on above: Order Comment: 103.1 Performed By: #### L 501.9520, L500.2500, L100.0100 ####[facility] [address] [place], [address] WBC (Bld) [#/Vol] 4.4 10*3/uL Normal 4.4-11.0 [facility] Comment on above: Order Comment: 103.1 Performed By: #### L 501.9520, L500.2500, L100.0100 ####[facility] [address] [place], [address] Calcium [Mass/Vol]Ordered By : Millie Massey on 06-25-2024 Serum or plasma calcium measurement (mass/volume) 8.5 mg/dL 8.5-10.1 [facility] Carbon dioxide measurementOr dered By: Millie Massey on 06-25-2024 CO2 [Moles/Vol] 29.0 mmol/L 21.0-32.0 [facility] Carbon dioxide measurement 29.0 mmol/L 21.0-32.0 [facility] Chloride measurementOrdered By: Millie Massey on 06-25-2024 Chloride [Moles/Vol] 104 mmol/L 98-107 [facility] Chloride measurement 104 mmol/L 98-107 [facility] Creatinine [Mass/Vol]Ordered By: Millie Massey on 06-25-2024 Serum or plasma creatinine measurement (mass/volume) 2.48 mg/dL High 0.55-1.02 [facility] Eosinophil percentageOrdered By: Millie Massey on 06-25-2024 Eosinophils/100 WBC (Bld) 3.2 % 0-5 [facility] Eosinophil percentage 3.2 % 0-5 [facility] Erythrocyte distribution wid th (RBC) [Ratio]Ordered By: Millie Massey on 06-25-2024 Erythrocyte distribution width ratio 16.0 % High 11.6-14.6 [facility] Erythrocyte distribution wid th ratioOrdered By: Millie Massey on 06-25-2024 Erythrocyte distribution width (RBC) [Ratio] 16.0 % High 11.6-14.6 [facility] Erythrocyte distribution wid th standard deviationOrdered By: Millie Massey on 06-25-2024 Erythrocyte distribution width (RBC) [Ratio] 52.8 fl High 35.1-43.9 [facility] Erythrocyte distribution width standard deviation 52.8 fl High 35.1-43.9 [facility] Estimated glomerular filtrat ion rate (GFR) AmericanOrdered By: Millie Massey on 06-25-2024 Estimated glomerular filtration rate (GFR) 25 mL/min Low >60 [facility] Glomerular filtration rate ( GFR) estimationOrdered By: Millie Massey on 06-25-2024 GFR/1.73 sq M.predicted among non-blacks MDRD (S/P/Bld) [Vol rate/Area] 21 mL/min/{1.73_m2} Low >60 [facility] Glomerular filtration rate (GFR) estimation 21 mL/min Low >60 [facility] Glucose measurementOrdered B y: Millie Massey on 06-25-2024 Glucose [Mass/Vol] 84 mg/dL 74-106 [facility] Glucose measurement 84 mg/dL 74-106 [facility] Hematocrit Auto (Bld) [Volum e fraction]Ordered By: Millie Massey on 06-25-2024 Hematocrit (Bld) [Volume fraction] 31.2 % Low 37-47 [facility] Automated blood hematocrit (percentage) 31.2 % Low 37-47 [facility] Hemoglobin measurementOrdere d By: Millie Massey on 06-25-2024 Hemoglobin (Bld) [Mass/Vol] 9.4 g/dL Low 12.0-15.0 [facility] Hemoglobin measurement 9.4 g/dL Low 12.0-15.0 [facility] Immature granulocytes/100 WB C Auto (Bld)Ordered By: Millie Massey on 06-25-2024 Immature granulocytes/100 WBC (Bld) 2.900 % High 0.0-0.9 [facility] Automated immature granulocyte percentage 2.900 % High 0.0-0.9 [facility] Lymphocytes Auto (Unsp spec) [#/Vol]Ordered By: Millie Massey on 06-25-2024 Absolute lymphocyte count 0.69 X10^3/uL Low 0.83-4.51 [facility] Lymphocytes/100 WBC Auto (Un sp spec)Ordered By: Millie Massey on 06-25-2024 Automated lymphocyte count as percentage of total leukocytes 15.6 % Low 19-41 [facility] MCV (RBC) [Entitic vol]Order ed By: Millie Massey on 06-25-2024 MCV (mean corpuscular volume) determination 89.9 fL 81-99 [facility] MCV (mean corpuscular volume ) determinationOrdered By: Millie Massey on 06-25-2024 MCV (RBC) [Entitic vol] 89.9 fL 81-99 [facility] Mean corpuscular hemoglobin (MCH) determinationOrdered By: Millie Massey on 06-25-2024 MCH (RBC) [Entitic mass] 27.1 pg 27.0-32.0 [facility] Mean corpuscular hemoglobin (MCH) determination 27.1 pg 27.0-32.0 [facility] Mean corpuscular hemoglobin concentration (MCHC) determinationOrdered By: Millie Massey on 06-25-2024 Mean corpuscular hemoglobin concentration (MCHC) determination 30.1 g/dL Low 32-36 [facility] Mean platelet volume determi nationOrdered By: Millie Massey on 06-25-2024 Mean platelet volume determination 9.4 fl 6.2-12.0 [facility] Monocyte percentageOrdered B y: Millie Massey on 06-25-2024 Monocytes/100 WBC (Bld) 13.8 % High 0-10 [facility] Monocyte percentage 13.8 % High 0-10 [facility] Neutrophil percentageOrdered By: Millie Massey on 06-25-2024 Neutrophils/100 WBC (Bld) 63.8 % 47-70 [facility] Neutrophil percentage 63.8 % 47-70 [facility] Nucleated red blood cell per centageOrdered By: Millie Massey on 06-25-2024 Nucleated red blood cell percentage 0 % 0-5 [facility] Platelet countOrdered By: Carter Massey on 06-25-2024 Platelets (Bld) [#/Vol] 142 10*3/uL Low 150-450 [facility] Platelet count 142 K/mm3 Low 150-450 [facility] Potassium measurementOrdered By: Millie Massey on 06-25-2024 Potassium [Moles/Vol] 4.6 mmol/L 3.5-5.1 [facility] Potassium measurement 4.6 mmol/L 3.5-5.1 [facility] RBC Auto (Bld) [#/Vol]Ordere d By: Millie Massey on 06-25-2024 RBC (Bld) [#/Vol] 3.47 10*6/uL Low 4.2-5.4 [facility] Automated blood erythrocyte count 3.47 M/mm3 Low 4.2-5.4 [facility] Serum anion gap measurementO rdered By: Millie Massey on 06-25-2024 Serum anion gap measurement 3 Low 5-15 [facility] Serum or plasma calcium megan urement (mass/volume)Ordered By: Millie Massey on 06-25-2024 Calcium [Mass/Vol] 8.5 mg/dL 8.5-10.1 [facility] Serum or plasma creatinine m easurement (mass/volume)Ordered By: Millie Massey on 06-25-2024 Creatinine [Mass/Vol] 2.48 mg/dL High 0.55-1.02 [facility] Serum or plasma thyroid stim ulating hormone (TSH) measurement (units/volume)Ordered By: Millie Massey on 06-25-2024 TSH Qn 0.679 uIU/mL 0.358-3.74 0 [facility] Serum or plasma urea nitroge n measurement (mass/volume)Ordered By: Millie Massey on 06-25-2024 Urea nitrogen [Mass/Vol] 39 mg/dL High 12-13 [facility] Sodium levelOrdered By: Silvana Massey on 06-25-2024 Sodium [Moles/Vol] 136 mmol/L 136-145 [facility] Sodium level 136 mmol/L 136-145 [facility] TSH QnOrdered By: Millie little on 06-25-2024 Serum or plasma thyroid stimulating hormone (TSH) measurement (units/volume) 0.679 uIU/mL 0.358-3.74 0 [facility] Thyroid Stim Hormone (TSH)on 06-25-2024 TSH 0.679 uIU/mL Normal 0.358-3.74 0 [facility] Comment on above: Order Comment: 103.1 Performed By: #### L 501.7734, L500.2500, L100.0100 ####[facility] [address] [place], [place], [address] Urea nitrogen [Mass/Vol]Orde red By: Millie Massey on 06-25-2024 Serum or plasma urea nitrogen measurement (mass/volume) 39 mg/dL High 12-13 [facility] Urine Cultureon 06-25-2024 URC Normal [facility] Comment on above: Performed By: #### M 100.2200, L400.0001 ####[facility] [facility] [address] [place], [address] White blood cell (WBC) count Ordered By: Millie Massey on 06-25-2024 WBC (Bld) [#/Vol] 4.4 10*3/uL 4.4-11.0 [facility] White blood cell (WBC) count 4.4 K/mm3 4.4-11.0 [facility] Absolute lymphocyte countOrd ered By: Millie Massey on 06-24-2024 Lymphocytes Auto (Unsp spec) [#/Vol] 0.73 10*3/uL Low 0.83-4.51 [facility] Absolute neutrophil countOrd ered By: Millie Massey on 06-24-2024 Absolute neutrophil count 3.9 X10^3/uL 2.0-7.7 [facility] Automated lymphocyte count a s percentage of total leukocytesOrdered By: Millie Massey on 06-24-2024 Lymphocytes/100 WBC Auto (Unsp spec) 13.7 % Low 19-41 [facility] Basic Metabolic Profile (BMP )on 06-24-2024 BUN/CRE 16.4 RATIO Normal 10-20 [facility] Comment on above: Order Comment: 103-1 Performed By: #### L 100.0100, L500.2500 ####[facility] [address] [place], [address] CA,Total 9.1 mg/dL Normal 8.5-10.1 [facility] Comment on above: Order Comment: 103-1 Performed By: #### L 100.0100, L500.2500 ####[facility] [address] [place], [address] Chloride [Moles/Vol] 104 mmol/L Normal 98-107 [facility] Comment on above: Order Comment: 103-1 Performed By: #### L 100.0100, L500.2500 ####[facility] [address] [place], [address] CO2 [Moles/Vol] 27.0 mmol/L Normal 21.0-32.0 [facility] Comment on above: Order Comment: 103- Performed By: #### L 100.0100, L500.2500 ####[facility] [address] [place], [address] Creatinine [Mass/Vol] 2.92 mg/dL High 0.55-1.02 [facility] Comment on above: Order Comment: 103- Result Comment: The validity of the calculated GFR GFRAA in patients over70 years has not been determined. Clinical correlation isessential. Performed By: #### L 100.0100, L500.2500 ####[facility] [address] [place], [address] EST GFR - AA 21 mL/min Low >60 [facility] Comment on above: Order Comment: 103- Result Comment: Afri can Singaporean GFR Calc Performed By: #### L 100.0100, L500.2500 ####[facility] [address] [place], [address] GAP 5 Normal 5-15 [facility] Comment on above: Order Comment: 103- Performed By: #### L 100.0100, L500.2500 ####[facility] [address] [place], [address] GFR/1.73 sq M.predicted among non-blacks MDRD (S/P/Bld) [Vol rate/Area] 17 mL/min/{1.73_m2} Low >60 [facility] Comment on above: Order Comment: 103- Result Comment: Non- GFR Calc Performed By: #### L 100.0100, L500.2500 ####[facility] [address] [place], [address] Glucose [Mass/Vol] 71 mg/dL Low 74-106 [facility] Comment on above: Order Comment: 103-1 Performed By: #### L 100.0100, L500.2500 ####[facility] [address] [place], [address] Potassium [Moles/Vol] 5.6 mmol/L High 3.5-5.1 [facility] Comment on above: Order Comment: 103-1 Performed By: #### L 100.0100, L500.2500 ####[facility] [address] [place], [address] Sodium [Moles/Vol] 137 mmol/L Normal 136-145 [facility] Comment on above: Order Comment: 103-1 Performed By: #### L 100.0100, L500.2500 ####[facility] [address] [place], [address] Urea nitrogen [Mass/Vol] 48 mg/dL High 7-18 [facility] Comment on above: Order Comment: 103-1 Performed By: #### L 100.0100, L500.2500 ####[facility] [address] [place], [address] Basophil percentageOrdered B y: Millie Massey on 06-24-2024 Basophils/100 WBC (Bld) 1.3 % High 0-1 [facility] Basophil percentage 1.3 % High 0-1 [facility] Blood urea nitrogen (BUN)/cr eatinine ratioOrdered By: Millie Massey on 06-24-2024 Blood urea nitrogen (BUN)/creatinine ratio 16.4 RATIO 10-20 [facility] CBC W/Diff, Automatedon -2 Absolute Lymph 0.73 X10 3/uL Low 0.83-4.51 [facility] Comment on above: Order Comment: 103-1 Performed By: #### L 100.0100, L500.2500 ####[facility] [address] [place], [address] Absolute Neut 3.9 X10 3/uL Normal 2.0-7.7 [facility] Comment on above: Order Comment: 103-1 Performed By: #### L 100.0100, L500.2500 ####[facility] [address] [place], [address] Basophils/100 WBC (Bld) 1.3 % High 0-1 [facility] Comment on above: Order Comment: 103-1 Performed By: #### L 100.0100, L500.2500 ####[facility] [address] [place], [address] Eosinophils/100 WBC (Bld) 2.6 % Normal 0-5 [facility] Comment on above: Order Comment: 103-1 Performed By: #### L 100.0100, L500.2500 ####[facility] [address] [place], [address] Erythrocyte distribution width (RBC) [Ratio] 15.9 % High 11.6-14.6 [facility] Comment on above: Order Comment: 103-1 Performed By: #### L 100.0100, L500.2500 ####[facility] [address] [place], [address] Hematocrit (Bld) [Volume fraction] 41.4 % Normal 37-47 [facility] Comment on above: Order Comment: 103-1 Performed By: #### L 100.0100, L500.2500 ####[facility] [address] [place], [address] Hemoglobin (Bld) [Mass/Vol] 12.8 g/dL Normal 12.0-15.0 [facility] Comment on above: Order Comment: 103-1 Performed By: #### L 100.0100, L500.2500 ####[facility] [address], [address] IG% 2.100 High 0.0-0.9 [facility] Comment on above: Order Comment: 103-1 Result Comment: IG% - Immature Granulocytes (promyelocytes, myelocytes andmetamyelocytes) > 1% indicates that a LEFT SHIFT is Present. Performed By: #### L 100.0100, L500.2500 ####[facility] [address] [place], [address] Lymphocytes/100 WBC (Bld) 13.7 % Low 19-41 [facility] Comment on above: Order Comment: 103-1 Performed By: #### L 100.0100, L500.2500 ####[facility] [address] [place], [address] MCH (RBC) [Entitic mass] 27.9 pg Normal 27.0-32.0 [facility] Comment on above: Order Comment: 103-1 Performed By: #### L 100.0100, L500.2500 ####[facility] [address] [place], [address] MCHC (RBC) [Mass/Vol] 30.9 g/dL Low 32-36 [facility] Comment on above: Order Comment: 103-1 Performed By: #### L 100.0100, L500.2500 ####[facility] [address] [place], [address] MCV (RBC) [Entitic vol] 90.2 fL Normal 81-99 [facility] Comment on above: Order Comment: 103-1 Performed By: #### L 100.0100, L500.2500 ####[facility] [address] [place], [address] Monocytes/100 WBC (Bld) 7.7 % Normal 0-10 [facility] Comment on above: Order Comment: 103-1 Performed By: #### L 100.0100, L500.2500 ####[facility] [address] [place], [address] Neutrophils/100 WBC (Bld) 72.6 % High 47-70 [facility] Comment on above: Order Comment: 103-1 Performed By: #### L 100.0100, L500.2500 ####[facility] [address] [place], [address] Nucleated RBC (Bld) [#/Vol] 0 10*3/uL Normal 0-5 [facility] Comment on above: Order Comment: 103-1 Performed By: #### L 100.0100, L500.2500 ####[facility] [address] [place], [address] Platelet mean volume (Bld) [Entitic vol] 10.0 fL Normal 6.2-12.0 [facility] Comment on above: Order Comment: 103-1 Performed By: #### L 100.0100, L500.2500 ####[facility] [address] [place], [address] Platelets (Bld) [#/Vol] 170 10*3/uL Normal 150-450 [facility] Comment on above: Order Comment: 103-1 Performed By: #### L 100.0100, L500.2500 ####[facility] [address] [place], [address] RBC (Bld) [#/Vol] 4.59 10*6/uL Normal 4.2-5.4 [facility] Comment on above: Order Comment: 103-1 Performed By: #### L 100.0100, L500.2500 ####[facility] [address] [place], [address] RDW SD 52.3 fl High 35.1-43.9 [facility] Comment on above: Order Comment: 103-1 Performed By: #### L 100.0100, L500.2500 ####[facility] [address] [place], [address] WBC (Bld) [#/Vol] 5.3 10*3/uL Normal 4.4-11.0 [facility] Comment on above: Order Comment: 103-1 Performed By: #### L 100.0100, L500.2500 ####[facility] [address] [place], [address] Calcium [Mass/Vol]Ordered By : Millie Massey on 06-24-2024 Serum or plasma calcium measurement (mass/volume) 9.1 mg/dL 8.5-10.1 [facility] Carbon dioxide measurementOr dered By: Millie Massey on 06-24-2024 CO2 [Moles/Vol] 27.0 mmol/L 21.0-32.0 [facility] Carbon dioxide measurement 27.0 mmol/L 21.0-32.0 [facility] Chloride measurementOrdered By: Millie Massey on 06-24-2024 Chloride [Moles/Vol] 104 mmol/L 98-107 [facility] Chloride measurement 104 mmol/L 98-107 [facility] Creatinine [Mass/Vol]Ordered By: Millie Massey on 06-24-2024 Serum or plasma creatinine measurement (mass/volume) 2.92 mg/dL High 0.55-1.02 [facility] Eosinophil percentageOrdered By: Millie Massey on 06-24-2024 Eosinophils/100 WBC (Bld) 2.6 % 0-5 [facility] Eosinophil percentage 2.6 % 0-5 [facility] Erythrocyte distribution wid th (RBC) [Ratio]Ordered By: Millie Massey on 06-24-2024 Erythrocyte distribution width ratio 15.9 % High 11.6-14.6 [facility] Erythrocyte distribution wid th ratioOrdered By: Millie Massey on 06-24-2024 Erythrocyte distribution width (RBC) [Ratio] 15.9 % High 11.6-14.6 [facility] Erythrocyte distribution wid th standard deviationOrdered By: Millie Massey on 06-24-2024 Erythrocyte distribution width (RBC) [Ratio] 52.3 fl High 35.1-43.9 [facility] Erythrocyte distribution width standard deviation 52.3 fl High 35.1-43.9 [facility] Estimated glomerular filtrat ion rate (GFR) AmericanOrdered By: Millie Massey on 06-24-2024 Estimated glomerular filtration rate (GFR) 21 mL/min Low >60 [facility] Glomerular filtration rate ( GFR) estimationOrdered By: Millie Massey on 06-24-2024 GFR/1.73 sq M.predicted among non-blacks MDRD (S/P/Bld) [Vol rate/Area] 17 mL/min/{1.73_m2} Low >60 [facility] Glomerular filtration rate (GFR) estimation 17 mL/min Low >60 [facility] Glucose measurementOrdered B y: Millie Massey on 06-24-2024 Glucose [Mass/Vol] 71 mg/dL Low 74-106 [facility] Glucose measurement 71 mg/dL Low 74-106 [facility] Hematocrit Auto (Bld) [Volum e fraction]Ordered By: Millie Massey on 06-24-2024 Hematocrit (Bld) [Volume fraction] 41.4 % 37-47 [facility] Automated blood hematocrit (percentage) 41.4 % 37-47 [facility] Hemoglobin measurementOrdere d By: Millie Massey on 06-24-2024 Hemoglobin (Bld) [Mass/Vol] 12.8 g/dL 12.0-15.0 [facility] Hemoglobin measurement 12.8 g/dL 12.0-15.0 [facility] Immature granulocytes/100 WB C Auto (Bld)Ordered By: Millie Massey on 06-24-2024 Immature granulocytes/100 WBC (Bld) 2.100 % High 0.0-0.9 [facility] Automated immature granulocyte percentage 2.100 % High 0.0-0.9 [facility] Lymphocytes Auto (Unsp spec) [#/Vol]Ordered By: Millie Massey on 06-24-2024 Absolute lymphocyte count 0.73 X10^3/uL Low 0.83-4.51 [facility] Lymphocytes/100 WBC Auto (Un sp spec)Ordered By: Millie Massey on 06-24-2024 Automated lymphocyte count as percentage of total leukocytes 13.7 % Low 19-41 [facility] MCV (RBC) [Entitic vol]Order ed By: Millie Massey on 06-24-2024 MCV (mean corpuscular volume) determination 90.2 fL 81-99 [facility] MCV (mean corpuscular volume ) determinationOrdered By: Millie Massey on 06-24-2024 MCV (RBC) [Entitic vol] 90.2 fL 81-99 [facility] Mean corpuscular hemoglobin (MCH) determinationOrdered By: Millie Massey on 06-24-2024 MCH (RBC) [Entitic mass] 27.9 pg 27.0-32.0 [facility] Mean corpuscular hemoglobin (MCH) determination 27.9 pg 27.0-32.0 [facility] Mean corpuscular hemoglobin concentration (MCHC) determinationOrdered By: Millie Massey on 06-24-2024 Mean corpuscular hemoglobin concentration (MCHC) determination 30.9 g/dL Low 32-36 [facility] Mean platelet volume determi nationOrdered By: Millie Massey on 06-24-2024 Mean platelet volume determination 10.0 fl 6.2-12.0 [facility] Monocyte percentageOrdered B y: Millie Massey on 06-24-2024 Monocytes/100 WBC (Bld) 7.7 % 0-10 [facility] Monocyte percentage 7.7 % 0-10 [facility] Neutrophil percentageOrdered By: Millie Massey on 06-24-2024 Neutrophils/100 WBC (Bld) 72.6 % High 47-70 [facility] Neutrophil percentage 72.6 % High 47-70 [facility] Nucleated red blood cell per centageOrdered By: Millie Massey on 06-24-2024 Nucleated red blood cell percentage 0 % 0-5 [facility] Platelet countOrdered By: Carter Massey on 06-24-2024 Platelets (Bld) [#/Vol] 170 10*3/uL 150-450 [facility] Platelet count 170 K/mm3 150-450 [facility] Potassium measurementOrdered By: Millie Massey on 06-24-2024 Potassium [Moles/Vol] 5.6 mmol/L High 3.5-5.1 [facility] Potassium measurement 5.6 mmol/L High 3.5-5.1 [facility] RBC Auto (Bld) [#/Vol]Ordere d By: Millie Massey on 06-24-2024 RBC (Bld) [#/Vol] 4.59 10*6/uL 4.2-5.4 [facility] Automated blood erythrocyte count 4.59 M/mm3 4.2-5.4 [facility] Serum anion gap measurementO rdered By: Millie Massey on 06-24-2024 Serum anion gap measurement 5 5-15 [facility] Serum or plasma calcium megan urement (mass/volume)Ordered By: Millie Massey on 06-24-2024 Calcium [Mass/Vol] 9.1 mg/dL 8.5-10.1 [facility] Serum or plasma creatinine m easurement (mass/volume)Ordered By: Millie Massey on 06-24-2024 Creatinine [Mass/Vol] 2.92 mg/dL High 0.55-1.02 [facility] Serum or plasma urea nitroge n measurement (mass/volume)Ordered By: Millie Massey on 06-24-2024 Urea nitrogen [Mass/Vol] 48 mg/dL High 7-18 [facility] Sodium levelOrdered By: Silvana Massey on 06-24-2024 Sodium [Moles/Vol] 137 mmol/L 136-145 [facility] Sodium level 137 mmol/L 136-145 [facility] Urea nitrogen [Mass/Vol]Orde red By: Millie Massey on 06-24-2024 Serum or plasma urea nitrogen measurement (mass/volume) 48 mg/dL High 7-18 [facility] White blood cell (WBC) count Ordered By: Millie Massey on 06-24-2024 WBC (Bld) [#/Vol] 5.3 10*3/uL 4.4-11.0 [facility] White blood cell (WBC) count 5.3 K/mm3 4.4-11.0 [facility] Urinalysis, Completeon 06-22 BACTERIA 4+ /hpf Normal None Seen [facility] Comment on above: Order Comment: Urine , Random Performed By: #### M 100.2200, L400.0001 ####[facility] [address] [place], [address] CA OX CRYSTAL 1+ /hpf Normal [facility] Comment on above: Order Comment: Urine , Random Performed By: #### M 100.2200, L400.0001 ####[facility] [address] [place], [address] EPI,SQUAMOUS 0-5 SEEN Normal 5-10 [facility] Comment on above: Order Comment: Urine , Random Performed By: #### M 100.2200, L400.0001 ####[facility] [address] [place], [address] WBC >100 SEEN Normal 0-5 [facility] Comment on above: Order Comment: Urine , Random Performed By: #### M 100.2200, L400.0001 ####[facility] [address] [place], [address] Mucus Ql (Urine sed) 0 SEEN Normal [facility] Comment on above: Order Comment: Urine , Random Performed By: #### M 100.2200, L400.0001 ####[facility] [address] [place], [address] RBC 0 SEEN Normal 0-5 [facility] Comment on above: Order Comment: Urine , Random Performed By: #### M 100.2200, L400.0001 ####[facility] [address] [place], [address] Bacteria LM.HPF (Urine sed) [#/Area]Ordered By: Millie Massey on 06-21-2024 Urine sediment bacteria count by microscopy (number/high power field) 4+ /hpf None Seen [facility] Bilirubin Test strip Ql (U)O rdered By: Millie Massey on 06-21-2024 Bilirubin Ql (U) Negative Negative [facility] Calcium oxalate crystals LM Ql (Urine sed)Ordered By: Millie Massey on 06-21-2024 Calcium oxalate crystals detection in urine sediment by light microscopy 1+ /hpf [facility] Calcium oxalate crystals det ection in urine sediment by light microscopyOrdered By: Millie Massey on 06-21-2024 Calcium oxalate crystals LM Ql (Urine sed) 1+ /hpf [facility] Clarity (U)Ordered By: Krystle Massey on 06-21-2024 Urine clarity Turbid Clear [facility] Color (U)Ordered By: Millie Massey on 06-21-2024 Urine color determination Yellow Yellow [facility] Epithelial cells.squamous LM Ql (Urine sed)Ordered By: Millie Massey on 06-21-2024 Squamous epithelial cells detection in urine sediment by light microscopy 0-5 SEEN /hpf 5-10 [facility] Ketones Test strip Ql (U)Ord ered By: Millie Massey on 06-21-2024 Ketones Ql (U) Negative Negative [facility] Leukocyte esterase Test stri p Ql (U)Ordered By: Millie Massey on 06-21-2024 Urine leukocyte esterase detection by dipstick 500 /ul High Negative [facility] Microscopic analysis of urin e for red blood cells (RBC)Ordered By: Millie Massey on 06-21-2024 Microscopic analysis of urine for red blood cells (RBC) 0 SEEN /hpf [facility] Mucus LM Ql (Urine sed)Order ed By: Millie Massey on 06-21-2024 Mucus Ql (Urine sed) 0 SEEN /hpf [facility] Nitrite Test strip Ql (U)Ord ered By: Millie Massey on 06-21-2024 Nitrite Ql (U) Negative Negative [facility] Protein Test strip Ql (U)Ord ered By: Millie Massey on 06-21-2024 Protein Ql (U) 100 mg/dl High Negative [facility] Urine protein assay by test strip, semi-quantitative 100 mg/dl High Negative [facility] Specific gravity (U) [Rel de nsity]Ordered By: Millie Massey on 06-21-2024 Urine specific gravity measurement 1.010 1.002-1.03 0 [facility] Squamous epithelial cells de tection in urine sediment by light microscopyOrdered By: Millie Massey on 06-21-2024 Epithelial cells.squamous LM Ql (Urine sed) 0-5 SEEN /hpf 5-10 [facility] Urine blood detectionOrdered By: Millie Massey on 06-21-2024 Urine blood detection 50 /ul High Negative [facility] Urine clarityOrdered By: Lesli Massey on 06-21-2024 Clarity (U) Turbid Clear [facility] Urine color determinationOrd ered By: Millie Massey on 06-21-2024 Color (U) Yellow Yellow [facility] Urine cultureOrdered By: Lesli Massey on 06-21-2024 Bacteria identified Cx Nom (U) Klebsiella oxytoca Abnormal [facility] Bacteria identified Cx Nom (U) Serratia ficaria Abnormal [facility] Urine culture Klebsiella oxytoca Abnormal [facility] Urine culture Serratia ficaria Abnormal [facility] Urine glucose detectionOrder ed By: Millie Massey on 06-21-2024 Glucose Ql (U) Normal mg/dl Normal [facility] Urine glucose detection Normal mg/dl Normal [facility] Urine leukocyte esterase det ection by dipstickOrdered By: Millie Massey on 06-21-2024 Leukocyte esterase Test strip Ql (U) 500 /ul High Negative [facility] Urine pHOrdered By: Millie roman on 06-21-2024 pH (U) 8.0 [pH] 5.0 - 8.0 [facility] Urine sediment bacteria coun t by microscopy (number/high power field)Ordered By: Millie Massey on 06-21-2024 Bacteria LM.HPF (Urine sed) [#/Area] 4 /[HPF] None Seen [facility] Urine specific gravity measu rementOrdered By: Millie Massey on 06-21-2024 Specific gravity (U) [Rel density] 1.010 1.002-1.03 0 [facility] Urine total bilirubin detect ion by test stripOrdered By: Millie Massey on 06-21-2024 Urine total bilirubin detection by test strip Negative Negative [facility] [facility] Urine urobilinogen measureme ntOrdered By: Millie Massey on 06-21-2024 Urobilinogen Ql (U) Normal mg/dl Normal [facility] White blood cell countOrdere d By: Millie Massey on 06-21-2024 White blood cell count >100 SEEN /hpf 0-5 [facility] White blood cell count >100 SEEN /hpf 0-5 [facility] pH (U)Ordered By: Millie little on 06-21-2024 Urine pH 8.0 5.0 - 8.0 [facility] Basic Metabolic Profile (BMP )on 06-07-2024 BUN/CRE 12.1 RATIO Normal 10-20 [facility] Comment on above: Order Comment: 103- Performed By: #### L 500.2500 ####[facility] [address] [place], [address] [place],Total 8.6 mg/dL Normal 8.5-10.1 [facility] Comment on above: Order Comment: 103- Performed By: #### L 500.2500 ####[facility] [address] [place], [address] Chloride [Moles/Vol] 107 mmol/L Normal 98-107 [facility] Comment on above: Order Comment: 103- Performed By: #### L 500.2500 ####[facility] [address] [place], [address] CO2 [Moles/Vol] 22.0 mmol/L Normal 21.0-32.0 [facility] Comment on above: Order Comment: 103- Performed By: #### L 500.2500 ####[facility] [address] [place], [address] Creatinine [Mass/Vol] 2.65 mg/dL High 0.55-1.02 [facility] Comment on above: Order Comment: 103 Result Comment: The validity of the calculated GFR GFRAA in patients over70 years has not been determined. Clinical correlation isessential. Performed By: #### L 500.2500 ####[facility] [address] [place], [address] EST GFR - AA 24 mL/min Low >60 [facility] Comment on above: Order Comment: 103-1 Result Comment: Afri can Singaporean GFR Calc Performed By: #### L 500.2500 ####[facility] [address] [place], [address] GAP 6 Normal 5-15 [facility] Comment on above: Order Comment: 103-1 Performed By: #### L 500.2500 ####[facility] [address] [place], [address] GFR/1.73 sq M.predicted among non-blacks MDRD (S/P/Bld) [Vol rate/Area] 19 mL/min/{1.73_m2} Low >60 [facility] Comment on above: Order Comment: 103- Result Comment: Non- GFR Calc Performed By: #### L 500.2500 ####[facility] [address] [place], [address] Glucose [Mass/Vol] 77 mg/dL Normal 74-106 [facility] Comment on above: Order Comment: 103- Performed By: #### L 500.2500 ####[facility] [address] [place], [address] Potassium [Moles/Vol] 5.3 mmol/L High 3.5-5.1 [facility] Comment on above: Order Comment: 103-1 Result Comment: Mode rate Hemolysis, Result may be falsely increased. Performed By: #### L 500.2500 ####[facility] [address] [place], [address] Sodium [Moles/Vol] 134 mmol/L Low 136-145 [facility] Comment on above: Order Comment: 103-1 Performed By: #### L 500.2500 ####[facility] [address] [place], [address] Urea nitrogen [Mass/Vol] 32 mg/dL High 7-18 [facility] Comment on above: Order Comment: 103-1 Performed By: #### L 500.2500 ####[facility] [address] [place], [address] Blood urea nitrogen (BUN)/cr eatinine ratioOrdered By: Millie Massey on 06-07-2024 Blood urea nitrogen (BUN)/creatinine ratio 12.1 RATIO 10-20 [facility] Calcium [Mass/Vol]Ordered By : Millie Massey on 06-07-2024 Serum or plasma calcium measurement (mass/volume) 8.6 mg/dL 8.5-10.1 [facility] Carbon dioxide measurementOr dered By: Millie Massey on 06-07-2024 Carbon dioxide measurement 22.0 mmol/L 21.0-32.0 [facility] Chloride measurementOrdered By: Millie Massey on 06-07-2024 Chloride measurement 107 mmol/L 98-107 [facility] Creatinine [Mass/Vol]Ordered By: Millie Massey on 06-07-2024 Serum or plasma creatinine measurement (mass/volume) 2.65 mg/dL High 0.55-1.02 [facility] Estimated glomerular filtrat ion rate (GFR) AmericanOrdered By: Millie Massey on 06-07-2024 Estimated glomerular filtration rate (GFR) 24 mL/min Low >60 [facility] Glomerular filtration rate ( GFR) estimationOrdered By: Millie Massey on 06-07-2024 Glomerular filtration rate (GFR) estimation 19 mL/min Low >60 [facility] Glucose measurementOrdered B y: Millie Massey on 06-07-2024 Glucose measurement 77 mg/dL 74-106 [facility] Potassium measurementOrdered By: Millie Massey on 06-07-2024 Potassium measurement 5.3 mmol/L High 3.5-5.1 [facility] Serum anion gap measurementO rdered By: Millie Massey on 06-07-2024 Serum anion gap measurement 6 5-15 [facility] Sodium levelOrdered By: Silvana Massey on 06-07-2024 Sodium level 134 mmol/L Low 136-145 [facility] Urea nitrogen [Mass/Vol]Orde red By: Millie Massey on 06-07-2024 Serum or plasma urea nitrogen measurement (mass/volume) 32 mg/dL High 7-18 [facility] Basic Metabolic Profile (BMP )on 06-06-2024 BUN/CRE 11.9 RATIO Normal 10-20 [facility] Comment on above: Performed By: #### L 500.2500 ####[facility] [address] [place] [address] [place],Total 8.5 mg/dL Normal 8.5-10.1 [facility] Comment on above: Performed By: #### L 500.2500 ####[facility] [address] [facility] [address] Chloride [Moles/Vol] 104 mmol/L Normal 98-107 [facility] Comment on above: Performed By: #### L 500.2500 ####[facility] [address] [place] [address] CO2 [Moles/Vol] 25.0 mmol/L Normal 21.0-32.0 [facility] Comment on above: Performed By: #### L 500.2500 ####[facility] [address] [facility] [address] Creatinine [Mass/Vol] 2.53 mg/dL High 0.55-1.02 [facility] Comment on above: Result Comment: The validity of the calculated GFR GFRAA in patients over70 years has not been determined. Clinical correlation isessential. Performed By: #### L 500.2500 ####[facility] [address] [place], [address] EST GFR - AA 25 mL/min Low >60 [facility] Comment on above: Result Comment: Afri can Singaporean GFR Calc Performed By: #### L 500.2500 ####[facility] [address] [place], [address] GAP 5 Normal 5-15 [facility] Comment on above: Performed By: #### L 500.2500 ####[facility] [address] [place], [address] GFR/1.73 sq M.predicted among non-blacks MDRD (S/P/Bld) [Vol rate/Area] 21 mL/min/{1.73_m2} Low >60 [facility] Comment on above: Result Comment: Non- GFR Calc Performed By: #### L 500.2500 ####[facility] [address] [place], [address] Glucose [Mass/Vol] 79 mg/dL Normal 74-106 [facility] Comment on above: Performed By: #### L 500.2500 ####[facility] [address] [place], [address] Potassium [Moles/Vol] 5.0 mmol/L Normal 3.5-5.1 [facility] Comment on above: Performed By: #### L 500.2500 ####[facility] [address] [place], [address] Sodium [Moles/Vol] 134 mmol/L Low 136-145 [facility] Comment on above: Performed By: #### L 500.2500 ####[facility] [address] [place], [address] Urea nitrogen [Mass/Vol] 30 mg/dL High 7-18 [facility] Comment on above: Performed By: #### L 500.2500 ####[facility] [address] [place], [address] Blood urea nitrogen (BUN)/cr eatinine ratioOrdered By: Millie Massey on 06-06-2024 Blood urea nitrogen (BUN)/creatinine ratio 11.9 RATIO 10-20 [facility] Calcium [Mass/Vol]Ordered By : Millie Massey on 06-06-2024 Serum or plasma calcium measurement (mass/volume) 8.5 mg/dL 8.5-10.1 [facility] Carbon dioxide measurementOr dered By: Millie Massey on 06-06-2024 Carbon dioxide measurement 25.0 mmol/L 21.0-32.0 [facility] Chloride measurementOrdered By: Millie Massey on 06-06-2024 Chloride measurement 104 mmol/L 98-107 [facility] Creatinine [Mass/Vol]Ordered By: Millie Massey on 06-06-2024 Serum or plasma creatinine measurement (mass/volume) 2.53 mg/dL High 0.55-1.02 [facility] Estimated glomerular filtrat ion rate (GFR) AmericanOrdered By: Millie Massey on 06-06-2024 Estimated glomerular filtration rate (GFR) 25 mL/min Low >60 [facility] Glomerular filtration rate ( GFR) estimationOrdered By: Millie Massey on 06-06-2024 Glomerular filtration rate (GFR) estimation 21 mL/min Low >60 [facility] Glucose measurementOrdered B y: Millie Massey on 06-06-2024 Glucose measurement 79 mg/dL 74-106 [facility] Potassium measurementOrdered By: Millie Massey on 06-06-2024 Potassium measurement 5.0 mmol/L 3.5-5.1 [facility] Serum anion gap measurementO rdered By: Millie Massey on 06-06-2024 Serum anion gap measurement 5 5-15 [facility] Sodium levelOrdered By: Silvana Massey on 06-06-2024 Sodium level 134 mmol/L Low 136-145 [facility] Urea nitrogen [Mass/Vol]Orde red By: Millie Massey on 06-06-2024 Serum or plasma urea nitrogen measurement (mass/volume) 30 mg/dL High 7-18 [facility] MR/BMS.BVSon 06-05-2024 MR/BMS.BVS Normal [facility] Absolute neutrophil countOrd ered By: Millie Massey on 06-03-2024 Absolute neutrophil count 4.5 X10^3/uL 2.0-7.7 [facility] Basic Metabolic Profile (BMP )on 06-03-2024 BUN/CRE 14.6 RATIO Normal 10-20 [facility] Comment on above: Order Comment: 103.1 Performed By: #### L 100.0100, L500.2500, L501.6710 ####[facility] [address] [place], [address] [place],Total 8.7 mg/dL Normal 8.5-10.1 [facility] Comment on above: Order Comment: 103.1 Performed By: #### L 100.0100, L500.2500, L501.6710 ####[facility] [address] [place], [address] Chloride [Moles/Vol] 102 mmol/L Normal 98-107 [facility] Comment on above: Order Comment: 103.1 Performed By: #### L 100.0100, L500.2500, L501.6710 ####[facility] [address] [place], [address] CO2 [Moles/Vol] 24.0 mmol/L Normal 21.0-32.0 [facility] Comment on above: Order Comment: 103.1 Performed By: #### L 100.0100, L500.2500, L501.6710 ####[facility] [address] [place], [address] Creatinine [Mass/Vol] 2.40 mg/dL High 0.55-1.02 [facility] Comment on above: Order Comment: 103.1 Result Comment: The validity of the calculated GFR GFRAA in patients over70 years has not been determined. Clinical correlation isessential. Performed By: #### L 100.0100, L500.2500, L501.6710 ####[facility] [address] [place], [address] EST GFR - AA 26 mL/min Low >60 [facility] Comment on above: Order Comment: 103.1 Result Comment: Afri can Singaporean GFR Calc Performed By: #### L 100.0100, L500.2500, L501.6710 ####[facility] [address] [place], [address] GAP 6 Normal 5-15 [facility] Comment on above: Order Comment: 103.1 Performed By: #### L 100.0100, L500.2500, L501.6710 ####[facility] [address] [place], [address] GFR/1.73 sq M.predicted among non-blacks MDRD (S/P/Bld) [Vol rate/Area] 22 mL/min/{1.73_m2} Low >60 [facility] Comment on above: Order Comment: 103.1 Result Comment: Non- GFR Calc Performed By: #### L 100.0100, L500.2500, L501.6710 ####[facility] [address] [place], [address] Glucose [Mass/Vol] 87 mg/dL Normal 74-106 [facility] Comment on above: Order Comment: 103.1 Performed By: #### L 100.0100, L500.2500, L501.6710 ####[facility] [address] [place], [address] Potassium [Moles/Vol] 5.3 mmol/L High 3.5-5.1 [facility] Comment on above: Order Comment: 103.1 Performed By: #### L 100.0100, L500.2500, L501.6710 ####[facility] [address] [place], [address] Sodium [Moles/Vol] 132 mmol/L Low 136-145 [facility] Comment on above: Order Comment: 103.1 Performed By: #### L 100.0100, L500.2500, L501.6710 ####[facility] [address] [place], [address] Urea nitrogen [Mass/Vol] 35 mg/dL High 7-18 [facility] Comment on above: Order Comment: 103.1 Performed By: #### L 100.0100, L500.2500, L501.6710 ####[facility] [address] [place], [address] Blood urea nitrogen (BUN)/cr eatinine ratioOrdered By: Millie Massey on 06-03-2024 Blood urea nitrogen (BUN)/creatinine ratio 14.6 RATIO 10-20 [facility] C-reactive protein measureme nt by high sensitivity methodOrdered By: Millie Massey on 06-03-2024 C-reactive protein measurement by high sensitivity method 15.60 mg/L High 0.0-3.0 [facility] CBC W/Diff, Automatedon Absolute Lymph 0.75 X10 3/uL Low 0.83-4.51 [facility] Comment on above: Order Comment: 103.1 Performed By: #### L 100.0100, L500.2500, L501.6710 ####[facility] [address] [place], [address] Absolute Neut 4.5 X10 3/uL Normal 2.0-7.7 [facility] Comment on above: Order Comment: 103.1 Performed By: #### L 100.0100, L500.2500, L501.6710 ####[facility] [address] [place], [address] Basophils/100 WBC (Bld) 1.0 % Normal 0-1 [facility] Comment on above: Order Comment: 103.1 Performed By: #### L 100.0100, L500.2500, L501.6710 ####[facility] [address] [place], [address] Eosinophils/100 WBC (Bld) 1.0 % Normal 0-5 [facility] Comment on above: Order Comment: 103.1 Performed By: #### L 100.0100, L500.2500, L501.6710 ####[facility] [address] [place], [address] Erythrocyte distribution width (RBC) [Ratio] 15.7 % High 11.6-14.6 [facility] Comment on above: Order Comment: 103.1 Performed By: #### L 100.0100, L500.2500, L501.6710 ####[facility] [address] [place], [address] Hematocrit (Bld) [Volume fraction] 38.9 % Normal 37-47 [facility] Comment on above: Order Comment: 103.1 Performed By: #### L 100.0100, L500.2500, L501.6710 ####[facility] [address] [place], [address] Hemoglobin (Bld) [Mass/Vol] 11.8 g/dL Low 12.0-15.0 [facility] Comment on above: Order Comment: 103.1 Performed By: #### L 100.0100, L500.2500, L501.6710 ####[facility] [address] [place], [address] IG% 0.800 Normal 0.0-0.9 [facility] Comment on above: Order Comment: 103.1 Result Comment: IG% - Immature Granulocytes (promyelocytes, myelocytes andmetamyelocytes) > 1% indicates that a LEFT SHIFT is Present. Performed By: #### L 100.0100, L500.2500, L501.6710 ####[facility] [address] [place], [address] Lymphocytes/100 WBC (Bld) 12.4 % Low 19-41 [facility] Comment on above: Order Comment: 103.1 Performed By: #### L 100.0100, L500.2500, L501.6710 ####[facility] [address] [place], [address] MCH (RBC) [Entitic mass] 28.4 pg Normal 27.0-32.0 [facility] Comment on above: Order Comment: 103.1 Performed By: #### L 100.0100, L500.2500, L501.6710 ####[facility] [address] [place], [address] MCHC (RBC) [Mass/Vol] 30.3 g/dL Low 32-36 [facility] Comment on above: Order Comment: 103.1 Performed By: #### L 100.0100, L500.2500, L501.6710 ####[facility] [address] [place], [address] MCV (RBC) [Entitic vol] 93.5 fL Normal 81-99 [facility] Comment on above: Order Comment: 103.1 Performed By: #### L 100.0100, L500.2500, L501.6710 ####[facility] [address] [place], [address] Monocytes/100 WBC (Bld) 9.9 % Normal 0-10 [facility] Comment on above: Order Comment: 103.1 Performed By: #### L 100.0100, L500.2500, L501.6710 ####[facility] [address] [place], [address] Neutrophils/100 WBC (Bld) 74.9 % High 47-70 [facility] Comment on above: Order Comment: 103.1 Performed By: #### L 100.0100, L500.2500, L501.6710 ####[facility] [address] [place], [address] Nucleated RBC (Bld) [#/Vol] 0 10*3/uL Normal 0-5 [facility] Comment on above: Order Comment: 103.1 Performed By: #### L 100.0100, L500.2500, L501.6710 ####[facility] [address] [place], [address] Platelet mean volume (Bld) [Entitic vol] 9.9 fL Normal 6.2-12.0 [facility] Comment on above: Order Comment: 103.1 Performed By: #### L 100.0100, L500.2500, L501.6710 ####[facility] [address] [place], [address] Platelets (Bld) [#/Vol] 196 10*3/uL Normal 150-450 [facility] Comment on above: Order Comment: 103.1 Performed By: #### L 100.0100, L500.2500, L501.6710 ####[facility] [address] [place], [address] RBC (Bld) [#/Vol] 4.16 10*6/uL Low 4.2-5.4 [facility] Comment on above: Order Comment: 103.1 Performed By: #### L 100.0100, L500.2500, L501.6710 ####[facility] [address] [place], [address] RDW SD 54.4 fl High 35.1-43.9 [facility] Comment on above: Order Comment: 103.1 Performed By: #### L 100.0100, L500.2500, L501.6710 ####[facility] [address] [place], [address] WBC (Bld) [#/Vol] 6.1 10*3/uL Normal 4.4-11.0 [facility] Comment on above: Order Comment: 103.1 Performed By: #### L 100.0100, L500.2500, L501.6710 ####[facility] [address] [place], [address] CRPon 06-03-2024 C-REACTIVE PROT 15.60 mg/L High 0.0-3.0 [facility] Comment on above: Order Comment: 103.1 Result Comment: C-Re active Protein (CRP) provides useful information for thediagnosis, therapy and monitoring of inflammatory processesand associated diseases. For the evaluation of Relative Riskfor Cardiovascular Disease, a High Sensitivity CRP (HSCRP)should be ordered. Performed By: #### L 100.0100, L500.2500, L501.6710 ####[facility] [address] [place], [address] Calcium [Mass/Vol]Ordered By : Millie Massey on 06-03-2024 Serum or plasma calcium measurement (mass/volume) 8.7 mg/dL 8.5-10.1 [facility] Carbon dioxide measurementOr dered By: Millie Massey on 06-03-2024 Carbon dioxide measurement 24.0 mmol/L 21.0-32.0 [facility] Chloride measurementOrdered By: Millie Massey on 06-03-2024 Chloride measurement 102 mmol/L 98-107 [facility] Creatinine [Mass/Vol]Ordered By: Millie Massey on 06-03-2024 Serum or plasma creatinine measurement (mass/volume) 2.40 mg/dL High 0.55-1.02 [facility] Eosinophil percentageOrdered By: Millie Massey on 06-03-2024 Eosinophil percentage 1.0 % 0-1 [facility] Erythrocyte distribution wid th (RBC) [Ratio]Ordered By: Millie Massey on 06-03-2024 Erythrocyte distribution width ratio 15.7 % High 11.6-14.6 [facility] Erythrocyte distribution wid th standard deviationOrdered By: Millie Massey on 06-03-2024 Erythrocyte distribution width standard deviation 54.4 fl High 35.1-43.9 [facility] Estimated glomerular filtrat ion rate (GFR) AmericanOrdered By: Millie Massey on 06-03-2024 Estimated glomerular filtration rate (GFR) 26 mL/min Low >60 [facility] Glomerular filtration rate ( GFR) estimationOrdered By: Millie Massey on 06-03-2024 Glomerular filtration rate (GFR) estimation 22 mL/min Low >60 [facility] Glucose measurementOrdered B y: Millie Massey on 06-03-2024 Glucose measurement 87 mg/dL 74-106 [facility] Hematocrit Auto (Bld) [Volum e fraction]Ordered By: Millie Massey on 06-03-2024 Automated blood hematocrit (percentage) 38.9 % 37-47 [facility] Hemoglobin measurementOrdere d By: Millie Massey on 06-03-2024 Hemoglobin measurement 11.8 g/dL Low 12.0-15.0 [facility] Immature granulocytes/100 WB C Auto (Bld)Ordered By: Millie Massey on 06-03-2024 Automated immature granulocyte percentage 0.800 % 0.0-0.9 [facility] Lymphocytes Auto (Unsp spec) [#/Vol]Ordered By: Millie Massey on 06-03-2024 Absolute lymphocyte count 0.75 X10^3/uL Low 0.83-4.51 [facility] Lymphocytes/100 WBC Auto (Un sp spec)Ordered By: Millie Massey on 06-03-2024 Automated lymphocyte count as percentage of total leukocytes 12.4 % Low 19-41 [facility] MCV (RBC) [Entitic vol]Order ed By: Millie Massey on 06-03-2024 MCV (mean corpuscular volume) determination 93.5 fL 81-99 [facility] Mean corpuscular hemoglobin (MCH) determinationOrdered By: Millie Massey on 06-03-2024 Mean corpuscular hemoglobin (MCH) determination 28.4 pg 27.0-32.0 [facility] Mean corpuscular hemoglobin concentration (MCHC) determinationOrdered By: Millie Massey on 06-03-2024 Mean corpuscular hemoglobin concentration (MCHC) determination 30.3 g/dL Low 32-36 [facility] Mean platelet volume determi nationOrdered By: Millie Massey on 06-03-2024 Mean platelet volume determination 9.9 fl 6.2-12.0 [facility] Monocyte percentageOrdered B y: Millie Massey on 06-03-2024 Monocyte percentage 9.9 % 0-10 [facility] Neutrophil percentageOrdered By: Millie Massey on 06-03-2024 Neutrophil percentage 74.9 % High 47-70 [facility] Nucleated red blood cell per centageOrdered By: Millie Massey on 06-03-2024 Nucleated red blood cell percentage 0 % 0-5 [facility] Platelet countOrdered By: Carter Massey on 06-03-2024 Platelet count 196 K/mm3 150-450 [facility] Potassium measurementOrdered By: Millie Massey on 06-03-2024 Potassium measurement 5.3 mmol/L High 3.5-5.1 [facility] RBC Auto (Bld) [#/Vol]Ordere d By: Millie Massey on 06-03-2024 Automated blood erythrocyte count 4.16 M/mm3 Low 4.2-5.4 [facility] Serum anion gap measurementO rdered By: Millie Massey on 06-03-2024 Serum anion gap measurement 6 5-15 [facility] Sodium levelOrdered By: Silvana Massey on 06-03-2024 Sodium level 132 mmol/L Low 136-145 [facility] Urea nitrogen [Mass/Vol]Orde red By: Millie Massey on 06-03-2024 Serum or plasma urea nitrogen measurement (mass/volume) 35 mg/dL High 7-18 [facility] White blood cell (WBC) count Ordered By: Millie Massey on 06-03-2024 White blood cell (WBC) count 6.1 K/mm3 4.4-11.0 [facility] Miscellaneous Lab Procedureo n 05-30-2024 [facility] [place] Normal [facility] Comment on above: Order Comment: [id number] Result Comment: TEST RESULTS LIMITSHemoglobin A1c <4.2 Low % 4.8-5.6 Verified by repeat analysis Please Note: Prediabetes: 5.7 - 6.4 Diabetes: >6.4 Glycemic control for adults with diabetes: <7.0 TESTING PERFORMED AT [facility]. ORIGINAL REPORT ON FILE IN LAB CONTAINS ADDITIONAL TEST SITE INFORMATION. Performed By: #### L 801.1541 ####[facility] [address] [place], [place], [address] Prealbumin 15453il Prealbumin [Mass/Vol] 10 mg/dL Normal 10-36 [facility] Comment on above: Order Comment: 103.1 Result Comment: Perf ormed at: [address] [id number] Director: Manjinder Babb PhD, Phone: [phone] Performed By: #### L [id number], L501.57388, L501.5200, L3300.6400, L500.4050, L100.0100, L501.9310 ####[facility] [address] [place], [place], [id number] ALP [Catalytic activity/Vol] Ordered By: Millie Massey on 05-27-2024 Serum or plasma alkaline phosphatase measurement 65 U/L 45-117 [facility] ALT [Catalytic activity/Vol] Ordered By: Millie Massey on 05-27-2024 Serum or plasma alanine aminotransferase (ALT) measurement 10 U/L Low 13-56 [facility] Absolute neutrophil countOrd ered By: Millie Massey on 05-27-2024 Absolute neutrophil count 3.6 X10^3/uL 2.0-7.7 [facility] Albumin [Mass/Vol]Ordered By : Millie Massey on 05-27-2024 Serum or plasma albumin measurement (mass/volume) 1.8 g/dL Low 3.2-5.0 [facility] Albumin to globulin ratioOrd ered By: Millie Massey on 05-27-2024 Albumin to globulin ratio 0.4 RATIO Low 0.9-2.4 [facility] Basophil percentageOrdered B y: Millie Massey on 05-27-2024 Basophil percentage 0.8 % 0-1 [facility] Bilirubin, totalOrdered By: Millie Massey on 05-27-2024 Bilirubin, total 0.40 mg/dL 0.20-1.00 [facility] Blood urea nitrogen (BUN)/cr eatinine ratioOrdered By: Millie Massey on 05-27-2024 Blood urea nitrogen (BUN)/creatinine ratio 15.6 RATIO - [facility] CBC W/Diff, Automatedon 12- 0-2023 Absolute Lymph 0.62 X10 3/uL Low 0.83-4.51 [facility] Comment on above: Order Comment: 103.1 Performed By: #### L 501.9520, L501.45347, L501.5200, L3300.6400, L500.4050, L100.0100, L501.9310 ####[facility] [address] [place], [address] Absolute Neut 3.6 X10 3/uL Normal 2.0-7.7 [facility] Comment on above: Order Comment: 103.1 Performed By: #### L 501.9520, L501.29114, L501.5200, L3300.6400, L500.4050, L100.0100, L501.9310 ####[facility] [address] [place], [address] Basophils/100 WBC (Bld) 0.8 % Normal 0-1 [facility] Comment on above: Order Comment: 103.1 Performed By: #### L [id number], L501.44616, L501.5200, L3300.6400, L500.4050, L100.0100, L501.9310 ####[facility] [address] [place], [address] Eosinophils/100 WBC (Bld) 2.3 % Normal 0-5 [facility] Comment on above: Order Comment: 103.1 Performed By: #### L 501.9520, L501.74506, L501.5200, L3300.6400, L500.4050, L100.0100, L501.9310 ####[facility] [address] [place], [address] Erythrocyte distribution width (RBC) [Ratio] 17.2 % High 11.6-14.6 [facility] Comment on above: Order Comment: 103.1 Performed By: #### L 501.9520, L501.91981, L501.5200, L3300.6400, L500.4050, L100.0100, L501.9310 ####[facility] [address] [place], [address] Hematocrit (Bld) [Volume fraction] 36.0 % Low 37-47 [facility] Comment on above: Order Comment: 103.1 Performed By: #### L 501.9520, L501.76072, L501.5200, L3300.6400, L500.4050, L100.0100, L501.9310 ####[facility] [address] [place], [address] Hemoglobin (Bld) [Mass/Vol] 10.4 g/dL Low 12.0-15.0 [facility] Comment on above: Order Comment: 103.1 Performed By: #### L 501.9520, L501.35604, L501.5200, L3300.6400, L500.4050, L100.0100, L501.9310 ####[facility] [address] [place], [address] IG% 1.000 High 0.0-0.9 [facility] Comment on above: Order Comment: 103.1 Result Comment: IG% - Immature Granulocytes (promyelocytes, myelocytes andmetamyelocytes) > 1% indicates that a LEFT SHIFT is Present. Performed By: #### L 501.9520, L501.53745, L501.5200, L3300.6400, L500.4050, L100.0100, L501.9310 ####[facility] [address] [place], [address] Lymphocytes/100 WBC (Bld) 12.8 % Low 19-41 [facility] Comment on above: Order Comment: 103.1 Performed By: #### L 501.9520, L501.10287, L501.5200, L3300.6400, L500.4050, L100.0100, L501.9310 ####[facility] [address] [place], [address] MCH (RBC) [Entitic mass] 28.2 pg Normal 27.0-32.0 [facility] Comment on above: Order Comment: 103.1 Performed By: #### L 501.9520, L501.53908, L501.5200, L3300.6400, L500.4050, L100.0100, L501.9310 ####[facility] [address] [place], [address] MCHC (RBC) [Mass/Vol] 28.9 g/dL Low 32-36 [facility] Comment on above: Order Comment: 103.1 Performed By: #### L 501.9520, L501.90988, L501.5200, L3300.6400, L500.4050, L100.0100, L501.9310 ####[facility] [address] [place], [address] MCV (RBC) [Entitic vol] 97.6 fL Normal 81-99 [facility] Comment on above: Order Comment: 103.1 Performed By: #### L 501.9520, L501.28973, L501.5200, L3300.6400, L500.4050, L100.0100, L501.9310 ####[facility] [address] [place], [address] Monocytes/100 WBC (Bld) 9.3 % Normal 0-10 [facility] Comment on above: Order Comment: 103.1 Performed By: #### L 501.9520, L501.97739, L501.5200, L3300.6400, L500.4050, L100.0100, L501.9310 ####[facility] [address] [place], [address] Neutrophils/100 WBC (Bld) 73.8 % High 47-70 [facility] Comment on above: Order Comment: 103.1 Performed By: #### L 501.9520, L501.91346, L501.5200, L3300.6400, L500.4050, L100.0100, L501.9310 ####[facility] [address] [place], [address] Nucleated RBC (Bld) [#/Vol] 0 10*3/uL Normal 0-5 [facility] Comment on above: Order Comment: 103.1 Performed By: #### L 501.9520, L501.22719, L501.5200, L3300.6400, L500.4050, L100.0100, L501.9310 ####[facility] [address] [place], [address] Platelet mean volume (Bld) [Entitic vol] 9.4 fL Normal 6.2-12.0 [facility] Comment on above: Order Comment: 103.1 Performed By: #### L 501.9520, L501.81391, L501.5200, L3300.6400, L500.4050, L100.0100, L501.9310 ####[facility] [address] [place], [address] Platelets (Bld) [#/Vol] 140 10*3/uL Low 150-450 [facility] Comment on above: Order Comment: 103.1 Performed By: #### L 501.9520, L501.41484, L501.5200, L3300.6400, L500.4050, L100.0100, L501.9310 ####[facility] [address] [place], [address] RBC (Bld) [#/Vol] 3.69 10*6/uL Low 4.2-5.4 [facility] Comment on above: Order Comment: 103.1 Performed By: #### L 501.9520, L501.27381, L501.5200, L3300.6400, L500.4050, L100.0100, L501.9310 ####[facility] [address] [place], [address] RDW SD 62.0 fl High 35.1-43.9 [facility] Comment on above: Order Comment: 103.1 Performed By: #### L 501.9520, L501.86283, L501.5200, L3300.6400, L500.4050, L100.0100, L501.9310 ####[facility] [address] [place], [address] WBC (Bld) [#/Vol] 4.8 10*3/uL Normal 4.4-11.0 [facility] Comment on above: Order Comment: 103.1 Performed By: #### L 501.9520, L501.98032, L501.5200, L3300.6400, L500.4050, L100.0100, L501.9310 ####[facility] [address] [place], [address] Calcium [Mass/Vol]Ordered By : Millie Massey on 05-27-2024 Serum or plasma calcium measurement (mass/volume) 7.8 mg/dL Low 8.5-10.1 [facility] Carbon dioxide measurementOr dered By: Millie Massey on 05-27-2024 Carbon dioxide measurement 30.0 mmol/L 21.0-32.0 [facility] Chloride measurementOrdered By: Millie Massey on 05-27-2024 Chloride measurement 103 mmol/L 98-107 [facility] Comprehensive Metabolic Prof ilon 05-27-2024 Albumin [Mass/Vol] 1.8 g/dL Low 3.2-5.0 [facility] Comment on above: Order Comment: 103.1 Performed By: #### L 501.9520, L501.10288, L501.5200, L3300.6400, L500.4050, L100.0100, L501.9310 ####[facility] [address] [place], [address] Albumin/Globulin [Mass ratio] 0.4 {ratio} Low 0.9-2.4 [facility] Comment on above: Order Comment: 103.1 Performed By: #### L 501.9520, L501.56730, L501.5200, L3300.6400, L500.4050, L100.0100, L501.9310 ####[facility] [address] [place], [address] ALK P 65 U/L Normal 45-117 [facility] Comment on above: Order Comment: 103.1 Performed By: #### L 501.9520, L501.83578, L501.5200, L3300.6400, L500.4050, L100.0100, L501.9310 ####[facility] [address] [place], [address] ALT [Catalytic activity/Vol] 10 U/L Low 13-56 [facility] Comment on above: Order Comment: 103.1 Performed By: #### L 501.9520, L501.63782, L501.5200, L3300.6400, L500.4050, L100.0100, L501.9310 ####[facility] [address] [place], [address] AST [Catalytic activity/Vol] 14 U/L Low 15-37 [facility] Comment on above: Order Comment: 103.1 Performed By: #### L 501.9520, L501.50804, L501.5200, L3300.6400, L500.4050, L100.0100, L501.9310 ####[facility] [address] [place], [address] Bilirubin [Mass/Vol] 0.40 mg/dL Normal 0.20-1.00 [facility] Comment on above: Order Comment: 103.1 Result Comment: For patients on eltrombopag therapy, use of Dimension [place] TBIL is not recommended. Performed By: #### L 501.9520, L501.64301, L501.5200, L3300.6400, L500.4050, L100.0100, L501.9310 ####[facility] [address] [place], [address] BUN/CRE 15.6 RATIO Normal 10-20 [facility] Comment on above: Order Comment: 103.1 Performed By: #### L 501.9520, L501.91158, L501.5200, L3300.6400, L500.4050, L100.0100, L501.9310 ####[facility] [address] [place], [address] CA,Total 7.8 mg/dL Low 8.5-10.1 [facility] Comment on above: Order Comment: 103.1 Performed By: #### L 501.9520, L501.24084, L501.5200, L3300.6400, L500.4050, L100.0100, L501.9310 ####[facility] [address] [place], [address] Chloride [Moles/Vol] 103 mmol/L Normal 98-107 [facility] Comment on above: Order Comment: 103.1 Performed By: #### L 501.9520, L501.31476, L501.5200, L3300.6400, L500.4050, L100.0100, L501.9310 ####[facility] [address] [place], [address] CO2 [Moles/Vol] 30.0 mmol/L Normal 21.0-32.0 [facility] Comment on above: Order Comment: 103.1 Performed By: #### L 501.9520, L501.37805, L501.5200, L3300.6400, L500.4050, L100.0100, L501.9310 ####[facility] [address] [place], [address] Creatinine [Mass/Vol] 1.41 mg/dL High 0.55-1.02 [facility] Comment on above: Order Comment: 103.1 Result Comment: The validity of the calculated GFR GFRAA in patients over70 years has not been determined. Clinical correlation isessential. Performed By: #### L 501.9520, L501.27085, L501.5200, L3300.6400, L500.4050, L100.0100, L501.9310 ####[facility] [address] [place], [address] EST GFR - AA 49 mL/min Low >60 [facility] Comment on above: Order Comment: 103.1 Result Comment: Afri can Singaporean GFR Calc Performed By: #### L 501.9520, L501.65486, L501.5200, L3300.6400, L500.4050, L100.0100, L501.9310 ####[facility] [address] [place], [address] GAP 4 Low 5-15 [facility] Comment on above: Order Comment: 103.1 Performed By: #### L 501.9520, L501.74978, L501.5200, L3300.6400, L500.4050, L100.0100, L501.9310 ####[facility] [address] [place], [address] GFR/1.73 sq M.predicted among non-blacks MDRD (S/P/Bld) [Vol rate/Area] 40 mL/min/{1.73_m2} Low >60 [facility] Comment on above: Order Comment: 103.1 Result Comment: Non- GFR Calc Performed By: #### L 501.9520, L501.12188, L501.5200, L3300.6400, L500.4050, L100.0100, L501.9310 ####[facility] [address] [place], [address] Globulin (S) [Mass/Vol] 4.2 g/dL Normal 2.2-4.2 [facility] Comment on above: Order Comment: 103.1 Performed By: #### L 501.9520, L501.20636, L501.5200, L3300.6400, L500.4050, L100.0100, L501.9310 ####[facility] [address] [place], [address] Glucose [Mass/Vol] 74 mg/dL Normal 74-106 [facility] Comment on above: Order Comment: 103.1 Performed By: #### L 501.9520, L501.80610, L501.5200, L3300.6400, L500.4050, L100.0100, L501.9310 ####[facility] [address] [place], [address] Potassium [Moles/Vol] 4.0 mmol/L Normal 3.5-5.1 [facility] Comment on above: Order Comment: 103.1 Performed By: #### L 501.9520, L501.27282, L501.5200, L3300.6400, L500.4050, L100.0100, L501.9310 ####[facility] [address] [place], [address] Sodium [Moles/Vol] 138 mmol/L Normal 136-145 [facility] Comment on above: Order Comment: 103.1 Performed By: #### L 501.9520, L501.37822, L501.5200, L3300.6400, L500.4050, L100.0100, L501.9310 ####[facility] [address] [place], [address] T PROT 6.0 g/dL Low 6.4-8.2 [facility] Comment on above: Order Comment: 103.1 Performed By: #### L 501.9520, L501.64022, L501.5200, L3300.6400, L500.4050, L100.0100, L501.9310 ####[facility] [address] [place], [address] Urea nitrogen [Mass/Vol] 22 mg/dL High 7-18 [facility] Comment on above: Order Comment: 103.1 Performed By: #### L 501.9520, L501.14912, L501.5200, L3300.6400, L500.4050, L100.0100, L501.9310 ####[facility] [address] [place], [address] Creatinine [Mass/Vol]Ordered By: Millie Massey on 05-27-2024 Serum or plasma creatinine measurement (mass/volume) 1.41 mg/dL High 0.55-1.02 [facility] Eosinophil percentageOrdered By: Millie Massey on 05-27-2024 Eosinophil percentage 2.3 % 0-5 [facility] Erythrocyte distribution wid th (RBC) [Ratio]Ordered By: Millie Massey on 05-27-2024 Erythrocyte distribution width ratio 17.2 % High 11.6-14.6 [facility] Erythrocyte distribution wid th standard deviationOrdered By: Millie Massey on 05-27-2024 Erythrocyte distribution width standard deviation 62.0 fl High 35.1-43.9 [facility] Estimated glomerular filtrat ion rate (GFR) AmericanOrdered By: Millie Massey on 05-27-2024 Estimated glomerular filtration rate (GFR) 49 mL/min Low >60 [facility] Free T3on 05-27-2024 Free T3 [Mass/Vol] 0.9 pg/mL Low 2.18-3.98 [facility] Comment on above: Order Comment: 103.1 Performed By: #### L 501.9520, L501.78446, L501.5200, L3300.6400, L500.4050, L100.0100, L501.9310 ####[facility] [address] [place], [address] Free I8Espwktt By: Millie ramirez on 05-27-2024 Free T3 0.9 pg/mL Low 2.18-3.98 [facility] Glomerular filtration rate ( GFR) estimationOrdered By: Millie Massey on 05-27-2024 Glomerular filtration rate (GFR) estimation 40 mL/min Low >60 [facility] Glucose measurementOrdered B y: Millie Massey on 05-27-2024 Glucose measurement 74 mg/dL 74-106 [facility] Hematocrit Auto (Bld) [Volum e fraction]Ordered By: Millie Massey on 05-27-2024 Automated blood hematocrit (percentage) 36.0 % Low 37-47 [facility] Hemoglobin measurementOrdere d By: Millie Massey on 05-27-2024 Hemoglobin measurement 10.4 g/dL Low 12.0-15.0 [facility] Immature granulocytes/100 WB C Auto (Bld)Ordered By: Millie Massey on 05-27-2024 Automated immature granulocyte percentage 1.000 % High 0.0-0.9 [facility] Lymphocytes Auto (Unsp spec) [#/Vol]Ordered By: Millie Massey on 05-27-2024 Absolute lymphocyte count 0.62 X10^3/uL Low 0.83-4.51 [facility] Lymphocytes/100 WBC Auto (Un sp spec)Ordered By: Millie Massey on 05-27-2024 Automated lymphocyte count as percentage of total leukocytes 12.8 % Low 19-41 [facility] MCV (RBC) [Entitic vol]Order ed By: Millie Massey on 05-27-2024 MCV (mean corpuscular volume) determination 97.6 fL 81-99 [facility] Magnesiumon 05-27-2024 Magnesium [Mass/Vol] 2.0 mg/dL Normal 1.6-2.6 [facility] Comment on above: Order Comment: 103.1 Performed By: #### L 501.9520, L501.55494, L501.5200, L3300.6400, L500.4050, L100.0100, L501.9310 ####[facility] [address] [place], [address] Magnesium measurementOrdered By: Millie Massey on 05-27-2024 Magnesium measurement 2.0 mg/dL 1.6-2.6 [facility] Mean corpuscular hemoglobin (MCH) determinationOrdered By: Millie Massey on 05-27-2024 Mean corpuscular hemoglobin (MCH) determination 28.2 pg 27.0-32.0 [facility] Mean corpuscular hemoglobin concentration (MCHC) determinationOrdered By: Millie Massey on 05-27-2024 Mean corpuscular hemoglobin concentration (MCHC) determination 28.9 g/dL Low 32-36 [facility] Mean platelet volume determi nationOrdered By: Millie Massey on 05-27-2024 Mean platelet volume determination 9.4 fl 6.2-12.0 [facility] Miscellaneous procedureOrder ed By: Millie Massey on 05-27-2024 Miscellaneous procedure See comment [facility] Monocyte percentageOrdered B y: Millie Massey on 05-27-2024 Monocyte percentage 9.3 % 0-10 [facility] Neutrophil percentageOrdered By: Millie Massey on 05-27-2024 Neutrophil percentage 73.8 % High 47-70 [facility] No Panel InformationOrdered By: Millie Massey on 05-27-2024 14 U/L Low 15-37 [facility] Nucleated red blood cell per centageOrdered By: Millie Massey on 05-27-2024 Nucleated red blood cell percentage 0 % 0-5 [facility] Platelet countOrdered By: Carter Massey on 05-27-2024 Platelet count 140 K/mm3 Low 150-450 [facility] Potassium measurementOrdered By: Millie Massey on 05-27-2024 Potassium measurement 4.0 mmol/L 3.5-5.1 [facility] RBC Auto (Bld) [#/Vol]Ordere d By: Millie Massey on 05-27-2024 Automated blood erythrocyte count 3.69 M/mm3 Low 4.2-5.4 [facility] Serum anion gap measurementO rdered By: Millie Massey on 05-27-2024 Serum anion gap measurement 4 Low 5-15 [facility] Serum globulin measurementOr dered By: Millie Massey on 05-27-2024 Serum globulin measurement 4.2 g/dL 2.2-4.2 [facility] Serum prealbumin measurement by immunoassayOrdered By: Millie Massey on 05-27-2024 Serum prealbumin measurement by immunoassay 10 mg/dL 10-36 [facility] Sodium levelOrdered By: Silvana Massey on 05-27-2024 Sodium level 138 mmol/L 136-145 [facility] T4 Total, Thyroxinon 024 T4 [Mass/Vol] 11.8 ug/dL Normal 4.8-13.9 [facility] Comment on above: Order Comment: 103.1 Performed By: #### L 501.9543, L501.80515, L501.5200, L3300.6400, L500.4050, L100.0100, L501.9310 ####[facility] [address] [place], [place], [address] T4 [Mass/Vol]Ordered By: Lesli Massey on 05-27-2024 Serum or plasma thyroxine (T4) measurement (mass/volume) 11.8 ug/dL 4.8-13.9 [facility] TSH QnOrdered By: Millie little on 05-27-2024 Serum or plasma thyroid stimulating hormone (TSH) measurement (units/volume) 3.060 uIU/mL 0.358-3.74 0 [facility] Thyroid Stim Hormone (TSH)on 05-27-2024 TSH 3.060 uIU/mL Normal 0.358-3.74 0 [facility] Comment on above: Order Comment: 103.1 Performed By: #### L 501.9520, L501.26957, L501.5200, L3300.6400, L500.4050, L100.0100, L501.9310 ####[facility] [address] [place], [place], [address] Total proteinOrdered By: Lesli Massey on 05-27-2024 Total protein 6.0 g/dL Low 6.4-8.2 [facility] Urea nitrogen [Mass/Vol]Orde red By: Millie Massey on 05-27-2024 Serum or plasma urea nitrogen measurement (mass/volume) 22 mg/dL High 7-18 [facility] White blood cell (WBC) count Ordered By: Millie Massey on 05-27-2024 White blood cell (WBC) count 4.8 K/mm3 4.4-11.0 [facility] Miscellaneous Lab Procedureo n 05-10-2024 [facility] Normal [facility] Comment on above: Order Comment: [id number] CYSTATIN C SERUM RT Result Comment: TEST RESULTS LIMITSCystatin C 3.68 High mg/L 0.72-1.16 ___ TESTING PERFORMED AT [facility]. ORIGINAL REPORT ON FILE IN LAB CONTAINS ADDITIONAL TEST SITE INFORMATION. Performed By: #### L 801.1541 ####[facility] [address] [place], [address] Surgery Visit Reporton 04-30 Surgery Visit Report Normal [facility] Basic Metabolic Profile (BMP )on 04-24-2024 BUN/CRE 11.9 RATIO Normal 03-17 [facility] Comment on above: Order Comment: 103 Performed By: #### L 500.2500, L501.9310, L501.9186, L501.9520, L100.0500 ####[facility] [address] [place], [address] CA,Total 7.7 mg/dL Low 8.5-10.1 [facility] Comment on above: Order Comment: 103 Performed By: #### L 500.2500, L501.9310, L501.9186, L501.9520, L100.0500 ####[facility] [address] [place], [address] Chloride [Moles/Vol] 109 mmol/L High 98-107 [facility] Comment on above: Order Comment: 103 Performed By: #### L 500.2500, L501.9310, L501.9186, L501.9520, L100.0500 ####[facility] [address] [place], [address] CO2 [Moles/Vol] 29.0 mmol/L Normal 21.0-32.0 [facility] Comment on above: Order Comment: 103 Performed By: #### L 500.2500, L501.9310, L501.9186, L501.9520, L100.0500 ####[facility] [address] [place], [address] Creatinine [Mass/Vol] 1.77 mg/dL High 0.55-1.02 [facility] Comment on above: Order Comment: 103 Result Comment: The validity of the calculated GFR GFRAA in patients over70 years has not been determined. Clinical correlation isessential. Performed By: #### L 500.2500, L501.9310, L501.9186, L501.9520, L100.0500 ####[facility] [address] [place], [address] EST GFR - AA 37 mL/min Low >60 [facility] Comment on above: Order Comment: 103 Result Comment: Afri can Singaporean GFR Calc Performed By: #### L 500.2500, L501.9310, L501.9186, L501.9520, L100.0500 ####[facility] [address] [place], [address] GAP 2 Low 5-15 [facility] Comment on above: Order Comment: 103 Performed By: #### L 500.2500, L501.9310, L501.9186, L501.9520, L100.0500 ####[facility] [address] [place], [address] GFR/1.73 sq M.predicted among non-blacks MDRD (S/P/Bld) [Vol rate/Area] 31 mL/min/{1.73_m2} Low >60 [facility] Comment on above: Order Comment: 103 Result Comment: Non- GFR Calc Performed By: #### L 500.2500, L501.9310, L501.9186, L501.9520, L100.0500 ####[facility] [address] [place], [address] Glucose [Mass/Vol] 65 mg/dL Low 74-106 [facility] Comment on above: Order Comment: 103 Performed By: #### L 500.2500, L501.9310, L501.9186, L501.9520, L100.0500 ####[facility] [address] [place], [address] Potassium [Moles/Vol] 4.9 mmol/L Normal 3.5-5.1 [facility] Comment on above: Order Comment: 103 Performed By: #### L 500.2500, L501.9310, L501.9186, L501.9520, L100.0500 ####[facility] [address] [place], [address] Sodium [Moles/Vol] 140 mmol/L Normal 136-145 [facility] Comment on above: Order Comment: 103 Performed By: #### L 500.2500, L501.9310, L501.9186, L501.9520, L100.0500 ####[facility] [address] [place], [address] Urea nitrogen [Mass/Vol] 21 mg/dL High 7-18 [facility] Comment on above: Order Comment: 103 Performed By: #### L 500.2500, L501.9310, L501.9186, L501.9520, L100.0500 ####[facility] [address] [place], [address] Blood urea nitrogen (BUN)/cr eatinine ratioOrdered By: Ethan Rodriguez on 04-24-2024 Blood urea nitrogen (BUN)/creatinine ratio 11.9 RATIO - [facility] CBC-Complete Blood Cnt No Di ffon 04-24-2024 Erythrocyte distribution width (RBC) [Ratio] 18.4 % High 11.6-14.6 [facility] Comment on above: Order Comment: 103 Performed By: #### L 500.2500, L501.9310, L501.9186, L501.9520, L100.0500 ####[facility] [address] [place], [address] Hematocrit (Bld) [Volume fraction] 35.3 % Low 37-47 [facility] Comment on above: Order Comment: 103 Performed By: #### L 500.2500, L501.9310, L501.9186, L501.9520, L100.0500 ####[facility] [address] [place], [address] Hemoglobin (Bld) [Mass/Vol] 10.4 g/dL Low 12.0-15.0 [facility] Comment on above: Order Comment: 103 Performed By: #### L 500.2500, L501.9310, L501.9186, L501.9520, L100.0500 ####[facility] [address] [place], [address] MCH (RBC) [Entitic mass] 27.3 pg Normal 27.0-32.0 [facility] Comment on above: Order Comment: 103 Performed By: #### L 500.2500, L501.9310, L501.9186, L501.9520, L100.0500 ####[facility] [address] [place], [address] MCHC (RBC) [Mass/Vol] 29.5 g/dL Low 32-36 [facility] Comment on above: Order Comment: 103 Performed By: #### L 500.2500, L501.9310, L501.9186, L501.9520, L100.0500 ####[facility] [address] [place], [address] MCV (RBC) [Entitic vol] 92.7 fL Normal 81-99 [facility] Comment on above: Order Comment: 103 Performed By: #### L 500.2500, L501.9310, L501.9186, L501.9520, L100.0500 ####[facility] [address] [place], [address] Platelet mean volume (Bld) [Entitic vol] 11.0 fL Normal 6.2-12.0 [facility] Comment on above: Order Comment: 103 Performed By: #### L 500.2500, L501.9310, L501.9186, L501.9520, L100.0500 ####[facility] [address] [place], [address] Platelets (Bld) [#/Vol] 105 10*3/uL Low 150-450 [facility] Comment on above: Order Comment: 103 Performed By: #### L 500.2500, L501.9310, L501.9186, L501.9520, L100.0500 ####[facility] [address] [place], [address] RBC (Bld) [#/Vol] 3.81 10*6/uL Low 4.2-5.4 [facility] Comment on above: Order Comment: 103 Performed By: #### L 500.2500, L501.9310, L501.9186, L501.9520, L100.0500 ####[facility] [address] [place], [address] RDW SD 61.0 fl High 35.1-43.9 [facility] Comment on above: Order Comment: 103 Performed By: #### L 500.2500, L501.9310, L501.9186, L501.9520, L100.0500 ####[facility] [address] [place], [address] WBC (Bld) [#/Vol] 4.5 10*3/uL Normal 4.4-11.0 [facility] Comment on above: Order Comment: 103 Performed By: #### L 500.2500, L501.9310, L501.9186, L501.9520, L100.0500 ####[facility] [address] [place], [address] Calcium [Mass/Vol]Ordered By : Ethan Rodriguez on 04-24-2024 Serum or plasma calcium measurement (mass/volume) 7.7 mg/dL Low 8.5-10.1 [facility] Carbon dioxide measurementOr dered By: Ethan Rodriguez on 04-24-2024 Carbon dioxide measurement 29.0 mmol/L 21.0-32.0 [facility] Chloride measurementOrdered By: Ethan Rodriguez on 04-24-2024 Chloride measurement 109 mmol/L High 98-107 [facility] Creatinine [Mass/Vol]Ordered By: Ethan Rodriguez on 04-24-2024 Serum or plasma creatinine measurement (mass/volume) 1.77 mg/dL High 0.55-1.02 [facility] Erythrocyte distribution wid th (RBC) [Entitic vol]Ordered By: Ethan Rodriguez on 04-24-2024 Erythrocyte distribution width standard deviation 61.0 fl High 35.1-43.9 [facility] Erythrocyte distribution wid th (RBC) [Ratio]Ordered By: Ethan Rodriguez on 04-24-2024 Erythrocyte distribution width ratio 18.4 % High 11.6-14.6 [facility] Estimated glomerular filtrat ion rate (GFR) AmericanOrdered By: Ethan Rodriguez on 04-24-2024 Estimated glomerular filtration rate (GFR) 37 mL/min Low >60 [facility] Glomerular filtration rate ( GFR) estimationOrdered By: Ethan Rodriguez on 04-24-2024 Glomerular filtration rate (GFR) estimation 31 mL/min Low >60 [facility] Glucose measurementOrdered B y: Ethan Rodriguez on 04-24-2024 Glucose measurement 65 mg/dL Low 74-106 [facility] Hematocrit Auto (Bld) [Volum e fraction]Ordered By: Ethan Rodriguez on 04-24-2024 Automated blood hematocrit (percentage) 35.3 % Low 37-47 [facility] Hemoglobin measurementOrdere d By: Ethan Rodriguez on 04-24-2024 Hemoglobin measurement 10.4 g/dL Low 12.0-15.0 [facility] MCV (RBC) [Entitic vol]Order ed By: Ethan Rodriguez on 04-24-2024 MCV (mean corpuscular volume) determination 92.7 fL 81-99 [facility] Mean corpuscular hemoglobin (MCH) determinationOrdered By: Ethan Rodriguez on 04-24-2024 Mean corpuscular hemoglobin (MCH) determination 27.3 pg 27.0-32.0 [facility] Mean corpuscular hemoglobin concentration (MCHC) determinationOrdered By: Ethan Rodriguez on 04-24-2024 Mean corpuscular hemoglobin concentration (MCHC) determination 29.5 g/dL Low 32-36 [facility] Mean platelet volume determi nationOrdered By: Ethan Rodriguez on 04-24-2024 Mean platelet volume determination 11.0 fl 6.2-12.0 [facility] Platelet countOrdered By: Chester Rodriguez on 04-24-2024 Platelet count 105 K/mm3 Low 150-450 [facility] Potassium measurementOrdered By: Ethan Rodriguez on 04-24-2024 Potassium measurement 4.9 mmol/L 3.5-5.1 [facility] RBC Auto (Bld) [#/Vol]Ordere d By: Ethan Rodriguez on 04-24-2024 Automated blood erythrocyte count 3.81 M/mm3 Low 4.2-5.4 [facility] Serum anion gap measurementO rdered By: Ethan Rodriguez on 04-24-2024 Serum anion gap measurement 2 Low 5-15 [facility] Sodium levelOrdered By: Ethan Rodriguez on 04-24-2024 Sodium level 140 mmol/L 136-145 [facility] T3 IA [Mass/Vol]Ordered By: Ethan Rodriguez on 04-24-2024 Serum or plasma triiodothyronine measurement by immunoassay (mass/volume) 0.64 ng/mL 0.6-1.81 [facility] T3 Total - Triiodothyronineo n 04-24-2024 T3 Total 0.64 ng/mL Normal 0.6-1.81 [facility] Comment on above: Order Comment: 103 Performed By: #### L 500.2500, L501.7901, L501.1330, L501.9520, L100.0500 ####[facility] [address] [place], [address] T4 Total, Thyroxinon 024 T4 [Mass/Vol] 6.1 ug/dL Normal 4.8-13.9 [facility] Comment on above: Order Comment: 103 Performed By: #### L 500.2500, L501.9310, L501.9186, L501.9520, L100.0500 ####[facility] [address] [place], [address] T4 [Mass/Vol]Ordered By: Ava Rodriguez on 04-24-2024 Serum or plasma thyroxine (T4) measurement (mass/volume) 6.1 ug/dL 4.8-13.9 [facility] TSH QnOrdered By: Ethan calvert on 04-24-2024 Serum or plasma thyroid stimulating hormone (TSH) measurement (units/volume) 12.000 uIU/mL High 0.358-3.74 0 [facility] Thyroid Stim Hormone (TSH)on 04-24-2024 TSH 12.000 uIU/mL High 0.358-3.74 0 [facility] Comment on above: Order Comment: 103 Performed By: #### L 500.2500, L501.9310, L501.9186, L501.9520, L100.0500 ####[facility] [address] [place], [address] Urea nitrogen [Mass/Vol]Orde red By: Ethan Rodriguez on 04-24-2024 Serum or plasma urea nitrogen measurement (mass/volume) 21 mg/dL High - [facility] White blood cell (WBC) count Ordered By: Ethan Rodriguez on 04-24-2024 White blood cell (WBC) count 4.5 K/mm3 4.4-11.0 [facility] Basic Metabolic Profile (BMP )on 04-23-2024 BUN Normal - [facility] Comment on above: Order Comment: 103.1 Result Comment: UTO Performed By: #### L 500.2500, L100.0500 ####[facility] [address] [place], [address] BUN/CRE Normal - [facility] Comment on above: Order Comment: 103.1 Result Comment: UTO Performed By: #### L 500.2500, L100.0500 ####[facility] [address] [place], [address] CA,Total Normal 8.5-10.1 [facility] Comment on above: Order Comment: 103.1 Result Comment: UTO Performed By: #### L 500.2500, L100.0500 ####[facility] [address] [place], [address] CL Normal 98-107 [facility] Comment on above: Order Comment: 103.1 Result Comment: UTO Performed By: #### L 500.2500, L100.0500 ####[facility] [address] [place], [address] CO2 Normal 21.0-32.0 [facility] Comment on above: Order Comment: 103.1 Result Comment: UTO Performed By: #### L 500.2500, L100.0500 ####[facility] [address] [place], [address] CREAT,SERUM Normal 0.55-1.02 [facility] Comment on above: Order Comment: 103.1 Result Comment: UTO Performed By: #### L 500.2500, L100.0500 ####[facility] [address] [place], [address] EST GFR Normal >60 [facility] Comment on above: Order Comment: 103.1 Result Comment: UTO Performed By: #### L 500.2500, L100.0500 ####[facility] [address] [place], [address] EST GFR - AA Normal >60 [facility] Comment on above: Order Comment: 103.1 Result Comment: UTO Performed By: #### L 500.2500, L100.0500 ####[facility] [address] [place], [address] GAP Normal 5-15 [facility] Comment on above: Order Comment: 103.1 Result Comment: UTO Performed By: #### L 500.2500, L100.0500 ####[facility] [address] [place], [address] GLU Normal 74-106 [facility] Comment on above: Order Comment: 103.1 Result Comment: UTO Performed By: #### L 500.2500, L100.0500 ####[facility] [address] [place], [address] Potassium Normal 3.5-5.1 [facility] Comment on above: Order Comment: 103.1 Result Comment: UTO Performed By: #### L 500.2500, L100.0500 ####[facility] [address] [place], [address] Basic Metabolic Profile (BMP) Normal 136-145 [facility] Comment on above: Order Comment: 103.1 Result Comment: UTO Performed By: #### L 500.2500, L100.0500 ####[facility] [address] [place], [address] CBC-Complete Blood Cnt No Di ffon 04-23-2024 HCT Normal 37-47 [facility] Comment on above: Order Comment: 103.1 Result Comment: UTO Performed By: #### L 500.2500, L100.0500 ####[facility] [address] [place], [address] HGB Normal 12.0-15.0 [facility] Comment on above: Order Comment: 103.1 Result Comment: UTO Performed By: #### L 500.2500, L100.0500 ####[facility] [address] [place], [address] MCH Normal 27.0-32.0 [facility] Comment on above: Order Comment: 103.1 Result Comment: UTO Performed By: #### L 500.2500, L100.0500 ####[facility] [address] [place], [address] MCHC Normal 32-36 [facility] Comment on above: Order Comment: 103.1 Result Comment: UTO Performed By: #### L 500.2500, L100.0500 ####[facility] [address] [place], [address] MCV Normal 81-99 [facility] Comment on above: Order Comment: 103.1 Result Comment: UTO Performed By: #### L 500.2500, L100.0500 ####[facility] [address] [place], [address] PLT Normal 150-450 [facility] Comment on above: Order Comment: 103.1 Result Comment: UTO Performed By: #### L 500.2500, L100.0500 ####[facility] [address] [place], [address] RBC Normal 4.2-5.4 [facility] Comment on above: Order Comment: 103.1 Result Comment: UTO Performed By: #### L 500.2500, L100.0500 ####[facility] [address] [place], [address] RDW CV Normal 11.6-14.6 [facility] Comment on above: Order Comment: 103.1 Result Comment: UTO Performed By: #### L 500.2500, L100.0500 ####[facility] [address] [place], [address] RDW SD Normal 35.1-43.9 [facility] Comment on above: Order Comment: 103.1 Result Comment: UTO Performed By: #### L 500.2500, L100.0500 ####[facility] [address] [place], [address] WBC Normal 4.4-11.0 [facility] Comment on above: Order Comment: 103.1 Result Comment: UTO Performed By: #### L 500.2500, L100.0500 ####[facility] [address] [facility] [place] [place], [address] ALP [Catalytic activity/Vol] Ordered By: Ethan Rodriguez on 04-17-2024 Serum or plasma alkaline phosphatase measurement 71 U/L 45-117 [facility] ALT [Catalytic activity/Vol] Ordered By: Ethan Rodriguez on 04-17-2024 Serum or plasma alanine aminotransferase (ALT) measurement 8 U/L Low 13-56 [facility] Albumin [Mass/Vol]Ordered By : Ethan Rodriguez on 04-17-2024 Serum or plasma albumin measurement (mass/volume) 1.7 g/dL Low 3.2-5.0 [facility] Albumin to globulin ratioOrd ered By: Ethan Rodriguez on 04-17-2024 Albumin to globulin ratio 0.4 RATIO Low 0.9-2.4 [facility] Ammoniaon 04-17-2024 Ammonia (P) [Moles/Vol] 22.0 umol/L Normal - [facility] Comment on above: Performed By: #### L 100.0500, L100.4500, L503.5510, L504.2610, L500.4050, M100.6795, M100.6796 ####[facility] [address] [facility] [place], [place], [address] Bilirubin, totalOrdered By: Ethan Rodriguez on 04-17-2024 Bilirubin, total 0.40 mg/dL 0.20-1.00 [facility] Blood urea nitrogen (BUN)/cr eatinine ratioOrdered By: Ethan Rodriguez on 04-17-2024 Blood urea nitrogen (BUN)/creatinine ratio 18.1 RATIO 03-17 [facility] CBC-Complete Blood Cnt No Di ffon 04-17-2024 Erythrocyte distribution width (RBC) [Ratio] 17.9 % High 11.6-14.6 [facility] Comment on above: Performed By: #### L 100.0500, L100.4500, L503.5510, L504.2610, L500.4050, M100.6795, M100.6796 ####[facility] [address] [place], [address] Hematocrit (Bld) [Volume fraction] 37.4 % Normal 37-47 [facility] Comment on above: Performed By: #### L 100.0500, L100.4500, L503.5510, L504.2610, L500.4050, M100.6795, M100.6796 ####[facility] [address] [place], [address] Hemoglobin (Bld) [Mass/Vol] 10.9 g/dL Low 12.0-15.0 [facility] Comment on above: Performed By: #### L 100.0500, L100.4500, L503.5510, L504.2610, L500.4050, M100.6795, M100.6796 ####[facility] [address] [place], [address] MCH (RBC) [Entitic mass] 27.3 pg Normal 27.0-32.0 [facility] Comment on above: Performed By: #### L 100.0500, L100.4500, L503.5510, L504.2610, L500.4050, M100.6795, M100.6796 ####[facility] [address] [place], [address] MCHC (RBC) [Mass/Vol] 29.1 g/dL Low 32-36 [facility] Comment on above: Performed By: #### L 100.0500, L100.4500, L503.5510, L504.2610, L500.4050, M100.6795, M100.6796 ####[facility] [address] [place], [address] MCV (RBC) [Entitic vol] 93.5 fL Normal 81-99 [facility] Comment on above: Performed By: #### L 100.0500, L100.4500, L503.5510, L504.2610, L500.4050, M100.6795, M100.6796 ####[facility] [address] [place], [address] Platelet mean volume (Bld) [Entitic vol] 9.8 fL Normal 6.2-12.0 [facility] Comment on above: Performed By: #### L 100.0500, L100.4500, L503.5510, L504.2610, L500.4050, M100.6795, M100.6796 ####[facility] [address] [place], [address] Platelets (Bld) [#/Vol] 92 10*3/uL Low 150-450 [facility] Comment on above: Performed By: #### L 100.0500, L100.4500, L503.5510, L504.2610, L500.4050, M100.6795, M100.6796 ####[facility] [address] [place], [address] RBC (Bld) [#/Vol] 4.00 10*6/uL Low 4.2-5.4 [facility] Comment on above: Performed By: #### L 100.0500, L100.4500, L503.5510, L504.2610, L500.4050, M100.6795, M100.6796 ####[facility] [address] [place], [address] RDW SD 61.1 fl High 35.1-43.9 [facility] Comment on above: Performed By: #### L 100.0500, L100.4500, L503.5510, L504.2610, L500.4050, M100.6795, M100.6796 ####[facility] [address] [place], [address] WBC (Bld) [#/Vol] 5.5 10*3/uL Normal 4.4-11.0 [facility] Comment on above: Performed By: #### L 100.0500, L100.4500, L503.5510, L504.2610, L500.4050, M100.6795, M100.6796 ####[facility] [address] [place], [place], [id number] CDIFF (PCR)on 04-17-2024 CDIFF Normal [facility] Comment on above: Performed By: #### L 100.0500, L100.4500, L503.5510, L504.2610, L500.4050, M100.6795, M100.6796 ####[facility] [address] [place], [place], [id number] Calcium [Mass/Vol]Ordered By : Ethan Rodriguez on 04-17-2024 Serum or plasma calcium measurement (mass/volume) 7.7 mg/dL Low 8.5-10.1 [facility] Carbon dioxide measurementOr dered By: Ethan Rodriguez on 04-17-2024 Carbon dioxide measurement 26.0 mmol/L 21.0-32.0 [facility] Chloride measurementOrdered By: Ethan Rodriguez on 04-17-2024 Chloride measurement 105 mmol/L 98-107 [facility] Clostridium Diff Toxin/Agon 04-17-2024 CDIFF (EIA) Normal [facility] Comment on above: Performed By: #### L 100.0500, L100.4500, L503.5510, L504.2610, L500.4050, M100.6795, M100.6796 ####[facility] [address] [place], [place], [id number] Comprehensive Metabolic Prof ilon 04-17-2024 Albumin [Mass/Vol] 1.7 g/dL Low 3.2-5.0 [facility] Comment on above: Order Comment: 1 Performed By: #### L 100.0500, L100.4500, L503.5510, L504.2610, L500.4050, M100.6795, M100.6796 ####[facility] [address] [place], [address] Albumin/Globulin [Mass ratio] 0.4 {ratio} Low 0.9-2.4 [facility] Comment on above: Order Comment: 1 Performed By: #### L 100.0500, L100.4500, L503.5510, L504.2610, L500.4050, M100.6795, M100.6796 ####[facility] [address] [place], [address] ALK P 71 U/L Normal 45-117 [facility] Comment on above: Order Comment: 1 Performed By: #### L 100.0500, L100.4500, L503.5510, L504.2610, L500.4050, M100.6795, M100.6796 ####[facility] [address] [place], [address] ALT [Catalytic activity/Vol] 8 U/L Low 13-56 [facility] Comment on above: Order Comment: 1 Performed By: #### L 100.0500, L100.4500, L503.5510, L504.2610, L500.4050, M100.6795, M100.6796 ####[facility] [address] [place], [address] AST [Catalytic activity/Vol] 19 U/L Normal 15-37 [facility] Comment on above: Order Comment: 1 Result Comment: Slig ht Hemolysis, Result may be falsely increased. Performed By: #### L 100.0500, L100.4500, L503.5510, L504.2610, L500.4050, M100.6795, M100.6796 ####[facility] [address] [place], [address] Bilirubin [Mass/Vol] 0.40 mg/dL Normal 0.20-1.00 [facility] Comment on above: Order Comment: 1 Result Comment: For patients on eltrombopag therapy, use of Dimension [place] TBIL is not recommended. Performed By: #### L 100.0500, L100.4500, L503.5510, L504.2610, L500.4050, M100.6795, M100.6796 ####[facility] [address] [place], [address] BUN/CRE 18.1 RATIO Normal 10-20 [facility] Comment on above: Order Comment: 1 Performed By: #### L 100.0500, L100.4500, L503.5510, L504.2610, L500.4050, M100.6795, M100.6796 ####[facility] [address] [place], [address] CA,Total 7.7 mg/dL Low 8.5-10.1 [facility] Comment on above: Order Comment: 1 Performed By: #### L 100.0500, L100.4500, L503.5510, L504.2610, L500.4050, M100.6795, M100.6796 ####[facility] [address] [place], [address] Chloride [Moles/Vol] 105 mmol/L Normal 98-107 [facility] Comment on above: Order Comment: 1 Performed By: #### L 100.0500, L100.4500, L503.5510, L504.2610, L500.4050, M100.6795, M100.6796 ####[facility] [address] [place], [address] CO2 [Moles/Vol] 26.0 mmol/L Normal 21.0-32.0 [facility] Comment on above: Order Comment: 1 Performed By: #### L 100.0500, L100.4500, L503.5510, L504.2610, L500.4050, M100.6795, M100.6796 ####[facility] [address] [place], [place], [phone](262) Creatinine [Mass/Vol] 2.10 mg/dL High 0.55-1.02 [facility] Comment on above: Order Comment: 1 Result Comment: The validity of the calculated GFR GFRAA in patients over70 years has not been determined. Clinical correlation isessential. Performed By: #### L 100.0500, L100.4500, L503.5510, L504.2610, L500.4050, M100.6795, M100.6796 ####[facility] [address] [place], [place], [phone]) EST GFR - AA 31 mL/min Low >60 [facility] Comment on above: Order Comment: 1 Result Comment: Afri can Singaporean GFR Calc Performed By: #### L 100.0500, L100.4500, L503.5510, L504.2610, L500.4050, M100.6795, M100.6796 ####[facility] [address] [place], [address] GAP 6 Normal 5-15 [facility] Comment on above: Order Comment: 1 Performed By: #### L 100.0500, L100.4500, L503.5510, L504.2610, L500.4050, M100.6795, M100.6796 ####[facility] [address] [place], [place], [phone] GFR/1.73 sq M.predicted among non-blacks MDRD (S/P/Bld) [Vol rate/Area] 25 mL/min/{1.73_m2} Low >60 [facility] Comment on above: Order Comment: 1 Result Comment: Non- GFR Calc Performed By: #### L 100.0500, L100.4500, L503.5510, L504.2610, L500.4050, M100.6795, M100.6796 ####[facility] [address] [place], [address] Globulin (S) [Mass/Vol] 4.0 g/dL Normal 2.2-4.2 [facility] Comment on above: Order Comment: 1 Performed By: #### L 100.0500, L100.4500, L503.5510, L504.2610, L500.4050, M100.6795, M100.6796 ####[facility] [address] [place], [address] Glucose [Mass/Vol] 70 mg/dL Low 74-106 [facility] Comment on above: Order Comment: 1 Performed By: #### L 100.0500, L100.4500, L503.5510, L504.2610, L500.4050, M100.6795, M100.6796 ####[facility] [address] [place], [address] Potassium [Moles/Vol] 4.2 mmol/L Normal 3.5-5.1 [facility] Comment on above: Order Comment: 1 Result Comment: Slig ht Hemolysis, Result may be falsely increased. Performed By: #### L 100.0500, L100.4500, L503.5510, L504.2610, L500.4050, M100.6795, M100.6796 ####[facility] [address] [place], [address] Sodium [Moles/Vol] 137 mmol/L Normal 136-145 [facility] Comment on above: Order Comment: 1 Performed By: #### L 100.0500, L100.4500, L503.5510, L504.2610, L500.4050, M100.6795, M100.6796 ####[facility] [address] [place], [address] T PROT 5.7 g/dL Low 6.4-8.2 [facility] Comment on above: Order Comment: 1 Performed By: #### L 100.0500, L100.4500, L503.5510, L504.2610, L500.4050, M100.6795, M100.6796 ####[facility] [address] [place], [address](312) Urea nitrogen [Mass/Vol] 38 mg/dL High 7-18 [facility] Comment on above: Order Comment: 1 Performed By: #### L 100.0500, L100.4500, L503.5510, L504.2610, L500.4050, M100.6795, M100.6796 ####[facility] [address] [place], [address]) Creatinine [Mass/Vol]Ordered By: Ethan Rodriguez on 04-17-2024 Serum or plasma creatinine measurement (mass/volume) 2.10 mg/dL High 0.55-1.02 [facility] Differential Commenton 04-17 SMEAR COMMENT COMMENT Normal [facility] Comment on above: Result Comment: PLT POPULATION - MODERATELY DECREASED. Performed By: #### L 100.0500, L100.4500, L503.5510, L504.2610, L500.4050, M100.6795, M100.6796 ####[facility] [address] [place], [address] Erythrocyte distribution wid th (RBC) [Entitic vol]Ordered By: Ethan Rodriguez on 04-17-2024 Erythrocyte distribution width standard deviation 61.1 fl High 35.1-43.9 [facility] Erythrocyte distribution wid th (RBC) [Ratio]Ordered By: Ethan Rodriguez on 04-17-2024 Erythrocyte distribution width ratio 17.9 % High 11.6-14.6 [facility] Estimated glomerular filtrat ion rate (GFR) AmericanOrdered By: Ethan Rodriguez on 04-17-2024 Estimated glomerular filtration rate (GFR) 31 mL/min Low >60 [facility] Glomerular filtration rate ( GFR) estimationOrdered By: Ethan Rodriguez on 04-17-2024 Glomerular filtration rate (GFR) estimation 25 mL/min Low >60 [facility] Glucose measurementOrdered B y: Ethan Rodriguez on 04-17-2024 Glucose measurement 70 mg/dL Low 74-106 [facility] Hematocrit Auto (Bld) [Volum e fraction]Ordered By: Ethan Rodriguez on 04-17-2024 Automated blood hematocrit (percentage) 37.4 % 37-47 [facility] Hemoglobin measurementOrdere d By: Ethan Rodriguez on 04-17-2024 Hemoglobin measurement 10.9 g/dL Low 12.0-15.0 [facility] LDHon 04-17-2024 LDH 237 U/L Normal 84-246 [facility] Comment on above: Order Comment: 1 Result Comment: Slig ht Hemolysis, Result may be falsely increased. Performed By: #### L 100.0500, L100.4500, L503.5510, L504.2610, L500.4050, M100.6795, M100.6796 ####[facility] [address] [place], [place], [address] Lactate dehydrogenase (LDH) measurementOrdered By: Ethan Rodriguez on 04-17-2024 Lactate dehydrogenase (LDH) measurement 237 U/L 84-246 [facility] MCV (RBC) [Entitic vol]Order ed By: Ethan Rodriguez on 04-17-2024 MCV (mean corpuscular volume) determination 93.5 fL 81-99 [facility] Manual differential comment Horace (Bld) [Interp]Ordered By: Ethan Rodriguez on 04-17-2024 Blood manual differential comment interpretation (narrative result) COMMENT [facility] Mean corpuscular hemoglobin (MCH) determinationOrdered By: Ethan Rodriguez on 04-17-2024 Mean corpuscular hemoglobin (MCH) determination 27.3 pg 27.0-32.0 [facility] Mean corpuscular hemoglobin concentration (MCHC) determinationOrdered By: Ethan Rodriguez on 04-17-2024 Mean corpuscular hemoglobin concentration (MCHC) determination 29.1 g/dL Low 32-36 [facility] Mean platelet volume determi nationOrdered By: Ethan Rodriguez on 04-17-2024 Mean platelet volume determination 9.8 fl 6.2-12.0 [facility] No Panel InformationOrdered By: Ethan Rodriguez on 04-17-2024 19 U/L 15-37 [facility] Platelet countOrdered By: Chester Rodriguez on 04-17-2024 Platelet count 92 K/mm3 Low 150-450 [facility] Potassium measurementOrdered By: Ethan Rodriguez on 04-17-2024 Potassium measurement 4.2 mmol/L 3.5-5.1 [facility] RBC Auto (Bld) [#/Vol]Ordere d By: Ethan Rodriguez on 04-17-2024 Automated blood erythrocyte count 4.00 M/mm3 Low 4.2-5.4 [facility] Serum anion gap measurementO rdered By: Ethan Rodriguez on 04-17-2024 Serum anion gap measurement 6 5-15 [facility] Serum globulin measurementOr dered By: Ethan Rodriguez on 04-17-2024 Serum globulin measurement 4.0 g/dL 2.2-4.2 [facility] Sodium levelOrdered By: Ethan Rodriguez on 04-17-2024 Sodium level 137 mmol/L 136-145 [facility] Total proteinOrdered By: Ava Rodriguez on 04-17-2024 Total protein 5.7 g/dL Low 6.4-8.2 [facility] Urea nitrogen [Mass/Vol]Orde red By: Ethan Rodriguez on 04-17-2024 Serum or plasma urea nitrogen measurement (mass/volume) 38 mg/dL High 7-18 [facility] Venous blood ammonia measure mentOrdered By: Ethan Rodriguez on 04-17-2024 Venous blood ammonia measurement 22.0 umol/L 11-32 [facility] White blood cell (WBC) count Ordered By: Ethan Rodriguez on 04-17-2024 White blood cell (WBC) count 5.5 K/mm3 4.4-11.0 [facility] C. difficile Ql (Stl)Ordered By: Ethan Rodriguez on 04-16-2024 Stool Clostridium difficile detection Toxigenic C. difficile Abnormal [facility] Miscellaneous procedureOrder ed By: Angie Torres on 04-15-2024 Miscellaneous procedure See comment [facility] CBC-Complete Blood Cnt No Di ffon 04-12-2024 Erythrocyte distribution width (RBC) [Ratio] 17.7 % High 11.6-14.6 [facility] Comment on above: Order Comment: 103-1 Performed By: #### L 500.4050, L100.0500 ####[facility] [address] [place], [address] Hematocrit (Bld) [Volume fraction] 36.0 % Low 37-47 [facility] Comment on above: Order Comment: 103-1 Performed By: #### L 500.4050, L100.0500 ####[facility] [address] [place], [address] Hemoglobin (Bld) [Mass/Vol] 10.7 g/dL Low 12.0-15.0 [facility] Comment on above: Order Comment: 103-1 Performed By: #### L 500.4050, L100.0500 ####[facility] [address] [place], [address] MCH (RBC) [Entitic mass] 27.3 pg Normal 27.0-32.0 [facility] Comment on above: Order Comment: 103-1 Performed By: #### L 500.4050, L100.0500 ####[facility] [address] [place], [address] MCHC (RBC) [Mass/Vol] 29.7 g/dL Low 32-36 [facility] Comment on above: Order Comment: 103-1 Performed By: #### L 500.4050, L100.0500 ####[facility] [address] [place], [address] MCV (RBC) [Entitic vol] 91.8 fL Normal 81-99 [facility] Comment on above: Order Comment: 103-1 Performed By: #### L 500.4050, L100.0500 ####[facility] [address] [place], [address] Platelet mean volume (Bld) [Entitic vol] 9.2 fL Normal 6.2-12.0 [facility] Comment on above: Order Comment: 103-1 Performed By: #### L 500.4050, L100.0500 ####[facility] [address] [place], [address] Platelets (Bld) [#/Vol] 133 10*3/uL Low 150-450 [facility] Comment on above: Order Comment: 103-1 Performed By: #### L 500.4050, L100.0500 ####[facility] [address] [place], [address] RBC (Bld) [#/Vol] 3.92 10*6/uL Low 4.2-5.4 [facility] Comment on above: Order Comment: 103-1 Performed By: #### L 500.4050, L100.0500 ####[facility] [address] [place], [address] RDW SD 59.2 fl High 35.1-43.9 [facility] Comment on above: Order Comment: 103-1 Performed By: #### L 500.4050, L100.0500 ####[facility] [address] [place], [address] WBC (Bld) [#/Vol] 11.4 10*3/uL High 4.4-11.0 [facility] Comment on above: Order Comment: 103-1 Performed By: #### L 500.4050, L100.0500 ####[facility] [address] [place], [address] Comprehensive Metabolic Prof ilon 04-12-2024 Albumin [Mass/Vol] 1.7 g/dL Low 3.2-5.0 [facility] Comment on above: Order Comment: 103-1 Performed By: #### L 500.4050, L100.0500 ####[facility] [address] [place], [address] Albumin/Globulin [Mass ratio] 0.4 {ratio} Low 0.9-2.4 [facility] Comment on above: Order Comment: 103-1 Performed By: #### L 500.4050, L100.0500 ####[facility] [address] [place], [address] ALK P 60 U/L Normal 45-117 [facility] Comment on above: Order Comment: 103-1 Performed By: #### L 500.4050, L100.0500 ####[facility] [address] [place], [address] ALT [Catalytic activity/Vol] 10 U/L Low 13-56 [facility] Comment on above: Order Comment: 103-1 Performed By: #### L 500.4050, L100.0500 ####[facility] [address] [place], [address] AST [Catalytic activity/Vol] 13 U/L Low 15-37 [facility] Comment on above: Order Comment: 103-1 Performed By: #### L 500.4050, L100.0500 ####[facility] [address] [place], [address] Bilirubin [Mass/Vol] 0.40 mg/dL Normal 0.20-1.00 [facility] Comment on above: Order Comment: 103-1 Result Comment: For patients on eltrombopag therapy, use of Dimension [place] TBIL is not recommended. Performed By: #### L 500.4050, L100.0500 ####[facility] [address] [place], [address] BUN/CRE 22.6 RATIO High 10-20 [facility] Comment on above: Order Comment: 103-1 Performed By: #### L 500.4050, L100.0500 ####[facility] [address] [place], [address] CA,Total 7.8 mg/dL Low 8.5-10.1 [facility] Comment on above: Order Comment: 103- Performed By: #### L 500.4050, L100.0500 ####[facility] [address] [place], [address] Chloride [Moles/Vol] 102 mmol/L Normal 98-107 [facility] Comment on above: Order Comment: - Performed By: #### L 500.4050, L100.0500 ####[facility] [address] [place], [address] CO2 [Moles/Vol] 28.0 mmol/L Normal 21.0-32.0 [facility] Comment on above: Order Comment: 103- Performed By: #### L 500.4050, L100.0500 ####[facility] [address] [place], [address] Creatinine [Mass/Vol] 2.35 mg/dL High 0.55-1.02 [facility] Comment on above: Order Comment: 103- Result Comment: The validity of the calculated GFR GFRAA in patients over70 years has not been determined. Clinical correlation isessential. Performed By: #### L 500.4050, L100.0500 ####[facility] [address] [place], [address] EST GFR - AA 27 mL/min Low >60 [facility] Comment on above: Order Comment: 103- Result Comment: Afri can Singaporean GFR Calc Performed By: #### L 500.4050, L100.0500 ####[facility] [address], [address] GAP 6 Normal 5-15 [facility] Comment on above: Order Comment: 103-1 Performed By: #### L 500.4050, L100.0500 ####[facility] [address] [place], [address] GFR/1.73 sq M.predicted among non-blacks MDRD (S/P/Bld) [Vol rate/Area] 22 mL/min/{1.73_m2} Low >60 [facility] Comment on above: Order Comment: 103-1 Result Comment: Non- GFR Calc Performed By: #### L 500.4050, L100.0500 ####[facility] [address] [place], [address] Globulin (S) [Mass/Vol] 4.0 g/dL Normal 2.2-4.2 [facility] Comment on above: Order Comment: 103-1 Performed By: #### L 500.4050, L100.0500 ####[facility] [address] [place], [address] Glucose [Mass/Vol] 88 mg/dL Normal 74-106 [facility] Comment on above: Order Comment: 103-1 Performed By: #### L 500.4050, L100.0500 ####[facility] [facility] [address] [place], [address] Potassium [Moles/Vol] 4.0 mmol/L Normal 3.5-5.1 [facility] Comment on above: Order Comment: 103-1 Performed By: #### L 500.4050, L100.0500 ####[facility] [address] [place], [address] Sodium [Moles/Vol] 136 mmol/L Normal 136-145 [facility] Comment on above: Order Comment: 103-1 Performed By: #### L 500.4050, L100.0500 ####[facility] [address] [place], [address] T PROT 5.7 g/dL Low 6.4-8.2 [facility] Comment on above: Order Comment: 103-1 Performed By: #### L 500.4050, L100.0500 ####[facility] [address] [place], [address] Urea nitrogen [Mass/Vol] 53 mg/dL High 7-18 [facility] Comment on above: Order Comment: 103-1 Performed By: #### L 500.4050, L100.0500 ####[facility] [address] [place], [address] Urine Cultureon 04-12-2024 URC Presumptive C albica ns [place] Count 11,000-25,000 Normal [facility] Comment on above: Performed By: #### M 100.2200 ####[facility] [address] [place], [address] Abdomen/Pelvis without Conto n 04-11-2024 Abdomen/Pelvis without Cont Normal [facility] Basic Metabolic Profile (BMP )on 04-11-2024 BUN/CRE 18.3 RATIO Normal 10-20 [facility] Comment on above: Performed By: #### L 509.7000, L100.0100, L500.2500 ####[facility] [address] [place], [address] CA,Total 7.6 mg/dL Low 8.5-10.1 [facility] Comment on above: Performed By: #### L 509.7000, L100.0100, L500.2500 ####[facility] [address] [place], [address] Chloride [Moles/Vol] 100 mmol/L Normal 98-107 [facility] Comment on above: Performed By: #### L 509.7000, L100.0100, L500.2500 ####[facility] [address] [place], [address] CO2 [Moles/Vol] 31.0 mmol/L Normal 21.0-32.0 [facility] Comment on above: Performed By: #### L 509.7000, L100.0100, L500.2500 ####[facility] [address] [place], [address] Creatinine [Mass/Vol] 2.13 mg/dL High 0.55-1.02 [facility] Comment on above: Result Comment: The validity of the calculated GFR GFRAA in patients over70 years has not been determined. Clinical correlation isessential. Performed By: #### L 509.7000, L100.0100, L500.2500 ####[facility] [address] [place], [address] ECRCL 23.69 ml/min Normal [facility] Comment on above: Performed By: #### L 509.7000, L100.0100, L500.2500 ####[facility] [address] [place], [address] EST GFR - AA 30 mL/min Low >60 [facility] Comment on above: Result Comment: Afri can Singaporean GFR Calc Performed By: #### L 509.7000, L100.0100, L500.2500 ####[facility] [address] [place], [address] GAP 5 Normal 5-15 [facility] Comment on above: Performed By: #### L 509.7000, L100.0100, L500.2500 ####[facility] [address] [place], [address] GFR/1.73 sq M.predicted among non-blacks MDRD (S/P/Bld) [Vol rate/Area] 25 mL/min/{1.73_m2} Low >60 [facility] Comment on above: Result Comment: Non- GFR Calc Performed By: #### L 509.7000, L100.0100, L500.2500 ####[facility] [address] [place], [address] Glucose [Mass/Vol] 87 mg/dL Normal 74-106 [facility] Comment on above: Performed By: #### L 509.7000, L100.0100, L500.2500 ####[facility] [address] [place], [address] Potassium [Moles/Vol] 3.9 mmol/L Normal 3.5-5.1 [facility] Comment on above: Performed By: #### L 509.7000, L100.0100, L500.2500 ####[facility] [address] [place], [address] Sodium [Moles/Vol] 137 mmol/L Normal 136-145 [facility] Comment on above: Performed By: #### L 509.7000, L100.0100, L500.2500 ####[facility] [address] [place], [address] Urea nitrogen [Mass/Vol] 39 mg/dL High 7-18 [facility] Comment on above: Performed By: #### L 509.7000, L100.0100, L500.2500 ####[facility] [address] [place], [address] CBC W/Diff, Automatedon 03-29 PLT EST ADEQUATE Normal ADEQ [facility] Comment on above: Performed By: #### L 509.7000, L100.0100, L500.2500 ####[facility] [address] [place], [address] RED CELL MORPH NORM C+C Normal NORM C C [facility] Comment on above: Performed By: #### L 509.7000, L100.0100, L500.2500 ####[facility] [address] [place], [address] SMEAR COMMENT SCANNED Normal [facility] Comment on above: Result Comment: LEFT SHIFT: BANDS PRESENT 2+ Performed By: #### L 509.7000, L100.0100, L500.2500 ####[facility] [address] [place], [address] Chest 1 View (Portable)on Chest 1 View (Portable) Normal [facility] Emergency Department Summary on 04-11-2024 Emergency Department Summary Normal [facility] M100.678on 04-11-2024 M100.678 Pending SARS-CoV-2 (COVID 19) Negative INFLUENZA A Negative INFLUENZA B Negative RSV PCR Negative Normal [facility] Comment on above: Performed By: #### M 100.678 ####[facility] [address], [address] Procalcitoninon 04-11-2024 Procalcitonin 0.62 ng/mL High 0.00-0.09 [facility] Comment on above: Result Comment: A [...] Performed By: #### L 509.7000, L100.0100, L500.2500 ####[facility] [address] [place], [address] Urinalysis, Completeon 04-11 BACTERIA 1+ /hpf Normal None Seen [facility] Comment on above: Order Comment: COLOR OF URINE MAY AFFECT DIPSTICK RESULTS.SELECT BANKER TO SPECIFY Performed By: #### L 400.0001 ####[facility] [address] [place], [address] RBC 0-5 SEEN Normal 0-5 [facility] Comment on above: Order Comment: COLOR OF URINE MAY AFFECT DIPSTICK RESULTS.SELECT BANKER TO SPECIFY Performed By: #### L 400.0001 ####[facility] [address] [place], [address] WBC 10-25 SEEN Normal 0-5 [facility] Comment on above: Order Comment: COLOR OF URINE MAY AFFECT DIPSTICK RESULTS.SELECT BANKER TO SPECIFY Performed By: #### L 400.0001 ####[facility] [address] [place], [address] EPI,SQUAMOUS 0 SEEN Normal 5-10 [facility] Comment on above: Order Comment: COLOR OF URINE MAY AFFECT DIPSTICK RESULTS.SELECT BANKER TO SPECIFY Performed By: #### L 400.0001 ####[facility] [address] [place], [address] Mucus Ql (Urine sed) 0 SEEN Normal [facility] Comment on above: Order Comment: COLOR OF URINE MAY AFFECT DIPSTICK RESULTS.SELECT BANKER TO SPECIFY Performed By: #### L 400.0001 ####[facility] [address] [place], [address] Basic Metabolic Profile (BMP )on 04-04-2024 BUN/CRE 11.5 RATIO Normal 10-20 [facility] Comment on above: Order Comment: 103.1 Performed By: #### L 500.2500, L100.0500 ####[facility] [address] [place], [address] CA,Total 8.1 mg/dL Low 8.5-10.1 [facility] Comment on above: Order Comment: 103.1 Performed By: #### L 500.2500, L100.0500 ####[facility] [address] [place], [address] Chloride [Moles/Vol] 99 mmol/L Normal 98-107 [facility] Comment on above: Order Comment: 103.1 Performed By: #### L 500.2500, L100.0500 ####[facility] [address] [place], [address] CO2 [Moles/Vol] 33.0 mmol/L High 21.0-32.0 [facility] Comment on above: Order Comment: 103.1 Performed By: #### L 500.2500, L100.0500 ####[facility] [address] [place], [address] Creatinine [Mass/Vol] 1.65 mg/dL High 0.55-1.02 [facility] Comment on above: Order Comment: 103.1 Result Comment: The validity of the calculated GFR GFRAA in patients over70 years has not been determined. Clinical correlation isessential. Performed By: #### L 500.2500, L100.0500 ####[facility] [address] [place], [address] EST GFR - AA 41 mL/min Low >60 [facility] Comment on above: Order Comment: 103.1 Result Comment: Afri can Singaporean GFR Calc Performed By: #### L 500.2500, L100.0500 ####[facility] [address] [place], [address] GAP 5 Normal 5-15 [facility] Comment on above: Order Comment: 103.1 Performed By: #### L 500.2500, L100.0500 ####[facility] [address] [place], [address] GFR/1.73 sq M.predicted among non-blacks MDRD (S/P/Bld) [Vol rate/Area] 34 mL/min/{1.73_m2} Low >60 [facility] Comment on above: Order Comment: 103.1 Result Comment: Non- GFR Calc Performed By: #### L 500.2500, L100.0500 ####[facility] [address] [place], [address] Glucose [Mass/Vol] 61 mg/dL Low 74-106 [facility] Comment on above: Order Comment: 103.1 Performed By: #### L 500.2500, L100.0500 ####[facility] [address] [place], [address] Potassium [Moles/Vol] 3.7 mmol/L Normal 3.5-5.1 [facility] Comment on above: Order Comment: 103.1 Performed By: #### L 500.2500, L100.0500 ####[facility] [address] [place], [address] Sodium [Moles/Vol] 137 mmol/L Normal 136-145 [facility] Comment on above: Order Comment: 103.1 Performed By: #### L 500.2500, L100.0500 ####[facility] [address] [place], [address] Urea nitrogen [Mass/Vol] 19 mg/dL High 7-18 [facility] Comment on above: Order Comment: 103.1 Performed By: #### L 500.2500, L100.0500 ####[facility] [address] [place], [address] CBC-Complete Blood Cnt No Di ffon 04-04-2024 Erythrocyte distribution width (RBC) [Ratio] 16.9 % High 11.6-14.6 [facility] Comment on above: Order Comment: 103.1 Performed By: #### L 500.2500, L100.0500 ####[facility] [address] [place], [address] Hematocrit (Bld) [Volume fraction] 35.8 % Low 37-47 [facility] Comment on above: Order Comment: 103.1 Performed By: #### L 500.2500, L100.0500 ####[facility] [address] [place], [address] Hemoglobin (Bld) [Mass/Vol] 10.0 g/dL Low 12.0-15.0 [facility] Comment on above: Order Comment: 103.1 Performed By: #### L 500.2500, L100.0500 ####[facility] [address] [place], [address] MCH (RBC) [Entitic mass] 27.3 pg Normal 27.0-32.0 [facility] Comment on above: Order Comment: 103.1 Performed By: #### L 500.2500, L100.0500 ####[facility] [address], [address] MCHC (RBC) [Mass/Vol] 27.9 g/dL Low 32-36 [facility] Comment on above: Order Comment: 103.1 Performed By: #### L 500.2500, L100.0500 ####[facility] [address] [place], [address] MCV (RBC) [Entitic vol] 97.8 fL Normal 81-99 [facility] Comment on above: Order Comment: 103.1 Performed By: #### L 500.2500, L100.0500 ####[facility] [address] [place], [address] Platelet mean volume (Bld) [Entitic vol] 9.9 fL Normal 6.2-12.0 [facility] Comment on above: Order Comment: 103.1 Performed By: #### L 500.2500, L100.0500 ####[facility] [address] [place], [address] Platelets (Bld) [#/Vol] 202 10*3/uL Normal 150-450 [facility] Comment on above: Order Comment: 103.1 Performed By: #### L 500.2500, L100.0500 ####[facility] [address] [place], [address] RBC (Bld) [#/Vol] 3.66 10*6/uL Low 4.2-5.4 [facility] Comment on above: Order Comment: 103.1 Performed By: #### L 500.2500, L100.0500 ####[facility] [address] [place], [address] RDW SD 61.3 fl High 35.1-43.9 [facility] Comment on above: Order Comment: 103.1 Performed By: #### L 500.2500, L100.0500 ####[facility] [address] [place], [address] WBC (Bld) [#/Vol] 11.4 10*3/uL High 4.4-11.0 [facility] Comment on above: Order Comment: 103.1 Performed By: #### L 500.2500, L100.0500 ####[facility] [address] [place], [address] Thyroid Stim Hormone (TSH)on 03-26-2024 TSH 20.500 uIU/mL High 0.358-3.74 0 [facility] Comment on above: Order Comment: 103.1 Performed By: #### L 501.9520 ####[facility] [address] [place], [address] OP NOTEon 03-22-2024 OP NOTE Normal [facility] Basic Metabolic Profile (BMP )on 03-21-2024 BUN/CRE 6.5 RATIO Low 10-20 [facility] Comment on above: Order Comment: 103.1 Performed By: #### L 500.2500, L100.0500 ####[facility] [address] [place], [address] CA,Total 9.1 mg/dL Normal 8.5-10.1 [facility] Comment on above: Order Comment: 103.1 Performed By: #### L 500.2500, L100.0500 ####[facility] [address] [place], [address] Chloride [Moles/Vol] 100 mmol/L Normal 98-107 [facility] Comment on above: Order Comment: 103.1 Performed By: #### L 500.2500, L100.0500 ####[facility] [address] [place], [address] CO2 [Moles/Vol] 30.0 mmol/L Normal 21.0-32.0 [facility] Comment on above: Order Comment: 103.1 Performed By: #### L 500.2500, L100.0500 ####[facility] [address] [place], [address] Creatinine [Mass/Vol] 1.85 mg/dL High 0.55-1.02 [facility] Comment on above: Order Comment: 103.1 Result Comment: The validity of the calculated GFR GFRAA in patients over70 years has not been determined. Clinical correlation isessential. Performed By: #### L 500.2500, L100.0500 ####[facility] [address] [place], [address] EST GFR - AA 36 mL/min Low >60 [facility] Comment on above: Order Comment: 103.1 Result Comment: Afri can Singaporean GFR Calc Performed By: #### L 500.2500, L100.0500 ####[facility] [address] [place], [address] GAP 3 Low 5-15 [facility] Comment on above: Order Comment: 103.1 Performed By: #### L 500.2500, L100.0500 ####[facility] [address] [place], [address] GFR/1.73 sq M.predicted among non-blacks MDRD (S/P/Bld) [Vol rate/Area] 29 mL/min/{1.73_m2} Low >60 [facility] Comment on above: Order Comment: 103.1 Result Comment: Non- GFR Calc Performed By: #### L 500.2500, L100.0500 ####[facility] [address] [place], [address] Glucose [Mass/Vol] 75 mg/dL Normal 74-106 [facility] Comment on above: Order Comment: 103.1 Performed By: #### L 500.2500, L100.0500 ####[facility] [address] [place], [address] Potassium [Moles/Vol] 4.5 mmol/L Normal 3.5-5.1 [facility] Comment on above: Order Comment: 103.1 Performed By: #### L 500.2500, L100.0500 ####[facility] [address] [place], [address] Sodium [Moles/Vol] 133 mmol/L Low 136-145 [facility] Comment on above: Order Comment: 103.1 Performed By: #### L 500.2500, L100.0500 ####[facility] [address] [place], [address] Urea nitrogen [Mass/Vol] 12 mg/dL Normal 7-18 [facility] Comment on above: Order Comment: 103.1 Performed By: #### L 500.2500, L100.0500 ####[facility] [address] [place], [address] CBC-Complete Blood Cnt No Di ffon 03-21-2024 Erythrocyte distribution width (RBC) [Ratio] 21.2 % High 11.6-14.6 [facility] Comment on above: Order Comment: 103.1 Performed By: #### L 500.2500, L100.0500 ####[facility] [address] [place], [address] Hematocrit (Bld) [Volume fraction] 27.9 % Low 37-47 [facility] Comment on above: Order Comment: 103.1 Performed By: #### L 500.2500, L100.0500 ####[facility] [address] [place], [address] Hemoglobin (Bld) [Mass/Vol] 8.0 g/dL Low 12.0-15.0 [facility] Comment on above: Order Comment: 103.1 Performed By: #### L 500.2500, L100.0500 ####[facility] [address] [place], [address] MCH (RBC) [Entitic mass] 29.3 pg Normal 27.0-32.0 [facility] Comment on above: Order Comment: 103.1 Performed By: #### L 500.2500, L100.0500 ####[facility] [address] [place], [address] MCHC (RBC) [Mass/Vol] 28.7 g/dL Low 32-36 [facility] Comment on above: Order Comment: 103.1 Performed By: #### L 500.2500, L100.0500 ####[facility] [address] [place], [address] MCV (RBC) [Entitic vol] 102.2 fL High 81-99 [facility] Comment on above: Order Comment: 103.1 Performed By: #### L 500.2500, L100.0500 ####[facility] [address] [place], [address] Platelet mean volume (Bld) [Entitic vol] 9.9 fL Normal 6.2-12.0 [facility] Comment on above: Order Comment: 103.1 Performed By: #### L 500.2500, L100.0500 ####[facility] [address] [place], [address] Platelets (Bld) [#/Vol] 189 10*3/uL Normal 150-450 [facility] Comment on above: Order Comment: 103.1 Performed By: #### L 500.2500, L100.0500 ####[facility] [address] [place], [address] RBC (Bld) [#/Vol] 2.73 10*6/uL Low 4.2-5.4 [facility] Comment on above: Order Comment: 103.1 Performed By: #### L 500.2500, L100.0500 ####[facility] [address] [place], [address] RDW SD 77.0 fl High 35.1-43.9 [facility] Comment on above: Order Comment: 103.1 Performed By: #### L 500.2500, L100.0500 ####[facility] [address] [place], [address] WBC (Bld) [#/Vol] 5.7 10*3/uL Normal 4.4-11.0 [facility] Comment on above: Order Comment: 103.1 Performed By: #### L 500.2500, L100.0500 ####[facility] [address] [place], [address] Disch Summon 03-20-2024 Disch Summ Normal [facility] BASIC METABOLIC PANELon - Anion gap [Moles/Vol] 10 mmol/L Normal 10-20 [facility] Comment on above: Order Comment: [facility] has implemented the eGFR calculation approach that does not have a coefficient for race that conforms to the NKF-ASN Task Force Recommendations. Performed By: #### 4 6124 ####[facility] [place] [address] Glenn Gudino M.D. [id number] Calcium [Mass/Vol] 8.3 mg/dL Low 8.4-10.2 [facility] Comment on above: Order Comment: [facility] has implemented the eGFR calculation approach that does not have a coefficient for race that conforms to the NKF-ASN Task Force Recommendations. Performed By: #### 4 6124 ####[facility] [address] [place], [place] [address] Glenn Gudino M.D. [id number] Chloride [Moles/Vol] 98 mmol/L Normal 98-108 [facility] Comment on above: Order Comment: [facility] has implemented the eGFR calculation approach that does not have a coefficient for race that conforms to the NKF-ASN Task Force Recommendations. Performed By: #### 4 6124 ####[facility] [address] [place], [place] [address] Glenn Gudino M.D. [id number] Creatinine [Mass/Vol] 1.32 mg/dL High 0.60-1.10 [facility] Comment on above: Order Comment: [facility] has implemented the eGFR calculation approach that does not have a coefficient for race that conforms to the NKF-ASN Task Force Recommendations. Performed By: #### 4 6124 ####[facility] [address] [place], [place] [address] Glenn Gudino M.D. [id number] EGFR 46 mL/min/1.73 m2 Low >=60 [facility] Comment on above: Order Comment: [facility] has implemented the eGFR calculation approach that does not have a coefficient for race that conforms to the NKF-ASN Task Force Recommendations. Result Comment: Joi mated GFR was calculated using the 2020 CKD-EPI creatinine equation. Performed By: #### 4 6124 ####[facility] [address] [place] [address] 19752 Glenn Gudino M.D. [id number] Glucose [Mass/Vol] 76 mg/dL Normal 65-99 [facility] Comment on above: Order Comment: [facility] has implemented the eGFR calculation approach that does not have a coefficient for race that conforms to the NKF-ASN Task Force Recommendations. Performed By: #### 4 6124 ####[facility] [address] [place] [address] 75802 Glenn Gudino M.D. [id number] HCO3 (Bld) [Moles/Vol] 30 mmol/L Normal 21-32 [facility] Comment on above: Order Comment: [facility] has implemented the eGFR calculation approach that does not have a coefficient for race that conforms to the NKF-ASN Task Force Recommendations. Performed By: #### 4 6124 ####[facility] [address] [place], [place] [address] Glenn Gudino M.D. [id number] Potassium [Moles/Vol] 4.3 mmol/L Normal 3.5-5.1 [facility] Comment on above: Order Comment: [facility] has implemented the eGFR calculation approach that does not have a coefficient for race that conforms to the NKF-ASN Task Force Recommendations. Result Comment: Slig htly Hemolyzed Performed By: #### 4 6124 ####[facility] [address] [place] [address] 42257 Glenn Gudino M.D. [id number] Sodium [Moles/Vol] 134 mmol/L Low 135-145 [facility] Comment on above: Order Comment: [facility] has implemented the eGFR calculation approach that does not have a coefficient for race that conforms to the NKF-ASN Task Force Recommendations. Performed By: #### 4 6117 ####[facility] [address] [place] [address] 23735 Glenn Gudino M.D. [id number] Urea nitrogen [Mass/Vol] 12 mg/dL Normal 8-25 [facility] Comment on above: Order Comment: [facility] has implemented the eGFR calculation approach that does not have a coefficient for race that conforms to the NKF-ASN Task Force Recommendations. Performed By: #### 4 6124 ####[facility] [address] [place], [place] [address] Glenn Gudino M.D. [id number] Urea nitrogen/Creatinine [Mass ratio] 9.1 mg/mg Low 10.0-20.0 [facility] Comment on above: Order Comment: [facility] has implemented the eGFR calculation approach that does not have a coefficient for race that conforms to the NKF-ASN Task Force Recommendations. Performed By: #### 4 6124 ####[facility] [address] [place] [address] Glenn Gudino M.D. [id number] CBCon 03-19-2024 AUTO NRBC 0.0 % Normal [facility] Comment on above: Performed By: #### 4 [id number] ####[facility] [address] [place], [place] [address] Glenn Gudino M.D. [id number] AUTO NRBC ABS COUNT 0.00 K/mcL Normal 0.00-0.00 [facility] Comment on above: Performed By: #### 4 [id number] ####[facility] [address] [place], [place] [address] Glenn Gudino M.D. [id number] Erythrocyte distribution width (RBC) [Ratio] 21.2 % High 11.6-14.8 [facility] Comment on above: Performed By: #### 4 [id number] ####[facility] [address] [place], [place] [address] Glenn Gudino M.D. [id number] Hematocrit (Bld) [Volume fraction] 27.5 % Low 36.0-46.0 [facility] Comment on above: Performed By: #### 4 [id number] ####[facility] [address] [place] [address] 61706 Glenn Gudino M.D. [id number] Hemoglobin (Bld) [Mass/Vol] 8.3 g/dL Low 12.0-16.0 [facility] Comment on above: Performed By: #### 4 [id number] ####[facility] [address] [place], [place] [address] Glenn Gudino M.D. [id number] MCH (RBC) [Entitic mass] 29.9 pg Normal 26.0-34.0 [facility] Comment on above: Performed By: #### 4 [id number] ####[facility] [address] [place] [address] Glenn Gudino M.D. [id number] MCV (RBC) [Entitic vol] 98.9 fL Normal 80.0-100.0 [facility] Comment on above: Performed By: #### 4 [id number] ####[facility] [address] [place], [place] [address] Glenn Gudino M.D. [id number] MEAN CORPUSCULAR HEMOGLOBIN CONC 30.2 g/dL Low 31.0-37.0 [facility] Comment on above: Performed By: #### 4 [id number] ####[facility] [address] [place], [place] [address] Glenn Gudino M.D. [id number] Platelet mean volume (Bld) [Entitic vol] 9.8 fL Normal 9.4-12.4 [facility] Comment on above: Performed By: #### 4 [id number] ####[facility] [address] [place], [place] [address] Glenn Gudino M.D. [id number] Platelets (Bld) [#/Vol] 156 10*3/uL Normal 150-400 [facility] Comment on above: Performed By: #### 4 [id number] ####[facility] [address] [place] [address] 34010 Glenn Gudino M.D. [id number] RBC (Bld) [#/Vol] 2.78 10*6/uL Low 4.00-5.20 [facility] Comment on above: Performed By: #### 4 [id number] ####[facility] [address] [place] [address] 56434 Glenn Gudino M.D. [id number] WBC (Bld) [#/Vol] 6.81 10*3/uL Normal 4.50-11.00 [facility] Comment on above: Performed By: #### 4 [id number] ####[facility] [address] [place] [address] 65706 Glenn Gudino M.D. [id number] BASIC METABOLIC PANELon 10-2 Anion gap [Moles/Vol] 11 mmol/L Normal 10-20 [facility] Comment on above: Order Comment: [facility] has implemented the eGFR calculation approach that does not have a coefficient for race that conforms to the NKF-ASN Task Force Recommendations. Performed By: #### 4 6124 ####[facility] [address] [place] [address] 13920 Glenn Gudino M.D. [id number] Calcium [Mass/Vol] 8.6 mg/dL Normal 8.4-10.2 [facility] Comment on above: Order Comment: [facility] has implemented the eGFR calculation approach that does not have a coefficient for race that conforms to the NKF-ASN Task Force Recommendations. Performed By: #### 4 6124 ####[facility] [address] [place] [address] 07858 Glenn Gudino M.D. [id number] Chloride [Moles/Vol] 97 mmol/L Low 98-108 [facility] Comment on above: Order Comment: [facility] has implemented the eGFR calculation approach that does not have a coefficient for race that conforms to the NKF-ASN Task Force Recommendations. Performed By: #### 4 6124 ####[facility] [address] [place] [address] 59594 Glenn Gudino M.D. [id number] Creatinine [Mass/Vol] 2.55 mg/dL High 0.60-1.10 [facility] Comment on above: Order Comment: [facility] has implemented the eGFR calculation approach that does not have a coefficient for race that conforms to the NKF-ASN Task Force Recommendations. Performed By: #### 4 6124 ####[facility] [address] [place] [address] 82147 Glenn Gudino M.D. [id number] EGFR 21 mL/min/1.73 m2 Low >=60 [facility] Comment on above: Order Comment: [facility] has implemented the eGFR calculation approach that does not have a coefficient for race that conforms to the NKF-ASN Task Force Recommendations. Result Comment: Joi mated GFR was calculated using the 2020 CKD-EPI creatinine equation. Performed By: #### 4 6124 ####[facility] [address] [place] [address] 70933 Glenn Gudino M.D. [id number] Glucose [Mass/Vol] 84 mg/dL Normal 65-99 [facility] Comment on above: Order Comment: [facility] has implemented the eGFR calculation approach that does not have a coefficient for race that conforms to the NKF-ASN Task Force Recommendations. Performed By: #### 4 6124 ####[facility] [address] [place] [address] 98275 Glenn Gudino M.D. [id number] HCO3 (Bld) [Moles/Vol] 29 mmol/L Normal 21-32 [facility] Comment on above: Order Comment: [facility] has implemented the eGFR calculation approach that does not have a coefficient for race that conforms to the NKF-ASN Task Force Recommendations. Performed By: #### 4 6124 ####[facility] [address] [place] [address] 32618 Glenn Gudino M.D. [id number] Potassium [Moles/Vol] 4.2 mmol/L Normal 3.5-5.1 [facility] Comment on above: Order Comment: [facility] has implemented the eGFR calculation approach that does not have a coefficient for race that conforms to the NKF-ASN Task Force Recommendations. Performed By: #### 4 6124 ####[facility] [address] [place] [address] 60839 Glenn Gudino M.D. [id number] Sodium [Moles/Vol] 133 mmol/L Low 135-145 [facility] Comment on above: Order Comment: [facility] has implemented the eGFR calculation approach that does not have a coefficient for race that conforms to the NKF-ASN Task Force Recommendations. Performed By: #### 4 6124 ####[facility] [address] [place], [place] [address] Glenn Gudino M.D. [id number] Urea nitrogen [Mass/Vol] 22 mg/dL Normal 8-25 [facility] Comment on above: Order Comment: [facility] has implemented the eGFR calculation approach that does not have a coefficient for race that conforms to the NKF-ASN Task Force Recommendations. Performed By: #### 4 6124 ####[facility] [address] [place] [address] 27026 Glenn Gudino M.D. [id number] Urea nitrogen/Creatinine [Mass ratio] 8.6 mg/mg Low 10.0-20.0 [facility] Comment on above: Order Comment: [facility] has implemented the eGFR calculation approach that does not have a coefficient for race that conforms to the NKF-ASN Task Force Recommendations. Performed By: #### 4 6124 ####[facility] [address] [place] [address] 47854 Glenn Gudino M.D. [id number] CBCon 03-18-2024 AUTO NRBC 0.0 % Normal [facility] Comment on above: Performed By: #### 4 [id number] ####[facility] [address] [place] [address] Glenn Gudino M.D. [id number] AUTO NRBC ABS COUNT 0.00 K/mcL Normal 0.00-0.00 [facility] Comment on above: Performed By: #### 4 [id number] ####[facility] [address] [place] [address] Glenn Gudino M.D. [id number] Erythrocyte distribution width (RBC) [Ratio] 20.8 % High 11.6-14.8 [facility] Comment on above: Performed By: #### 4 [id number] ####[facility] [address] [place] [address] Glenn Gudino M.D. [id number] Hematocrit (Bld) [Volume fraction] 26.6 % Low 36.0-46.0 [facility] Comment on above: Performed By: #### 4 [id number] ####[facility] [address] [place] [address] Glenn Gudino M.D. [id number] Hemoglobin (Bld) [Mass/Vol] 8.1 g/dL Low 12.0-16.0 [facility] Comment on above: Performed By: #### 4 [id number] ####[facility] [address] [place] [address] Glenn Gudino M.D. [id number] MCH (RBC) [Entitic mass] 29.9 pg Normal 26.0-34.0 [facility] Comment on above: Performed By: #### 4 [id number] ####[facility] [address] [place], [place] [address] Glenn Gudino M.D. [id number] MCV (RBC) [Entitic vol] 98.2 fL Normal 80.0-100.0 [facility] Comment on above: Performed By: #### 4 [id number] ####[facility] [address] [place] [address] 62154 Glenn Gudino M.D. [id number] MEAN CORPUSCULAR HEMOGLOBIN CONC 30.5 g/dL Low 31.0-37.0 [facility] Comment on above: Performed By: #### 4 [id number] ####[facility] [address] [place] [address] 77540 Glenn Gudino M.D. [id number] Platelet mean volume (Bld) [Entitic vol] 9.6 fL Normal 9.4-12.4 [facility] Comment on above: Performed By: #### 4 [id number] ####[facility] [address] [place], [place] [address] Glenn Gudino M.D. [id number] Platelets (Bld) [#/Vol] 167 10*3/uL Normal 150-400 [facility] Comment on above: Performed By: #### 4 [id number] ####[facility] [address] [place], [place] [address] Glenn Gudino M.D. [id number] RBC (Bld) [#/Vol] 2.71 10*6/uL Low 4.00-5.20 [facility] Comment on above: Performed By: #### 4 [id number] ####[facility] [address] [place] [address] 09287 Glenn Gudino M.D. [id number] WBC (Bld) [#/Vol] 6.74 10*3/uL Normal 4.50-11.00 [facility] Comment on above: Performed By: #### 4 [id number] ####[facility] [address] [place] [address] 51901 Glenn Gudino M.D. [id number] BASIC METABOLIC PANELon 10-2 0-2023 Anion gap [Moles/Vol] 12 mmol/L Normal 10-20 [facility] Comment on above: Order Comment: [facility] has implemented the eGFR calculation approach that does not have a coefficient for race that conforms to the NKF-ASN Task Force Recommendations. Performed By: #### 4 6124 ####[facility] [address] [place], [place] [address] Glenn Gudino M.D. [id number] Calcium [Mass/Vol] 8.3 mg/dL Low 8.4-10.2 [facility] Comment on above: Order Comment: [facility] has implemented the eGFR calculation approach that does not have a coefficient for race that conforms to the NKF-ASN Task Force Recommendations. Performed By: #### 4 6124 ####[facility] [address] [place], [place] [address] Glenn Gudino M.D. [id number] Chloride [Moles/Vol] 95 mmol/L Low 98-108 [facility] Comment on above: Order Comment: [facility] has implemented the eGFR calculation approach that does not have a coefficient for race that conforms to the NKF-ASN Task Force Recommendations. Performed By: #### 4 6124 ####[facility] [address] [place] [address] 71556 Glenn Gudino M.D. [id number] Creatinine [Mass/Vol] 1.69 mg/dL High 0.60-1.10 [facility] Comment on above: Order Comment: [facility] has implemented the eGFR calculation approach that does not have a coefficient for race that conforms to the NKF-ASN Task Force Recommendations. Performed By: #### 4 6124 ####[facility] [address] [place] [address] 11195 Glenn Gudino M.D. [id number] EGFR 34 mL/min/1.73 m2 Low >=60 [facility] Comment on above: Order Comment: [facility] has implemented the eGFR calculation approach that does not have a coefficient for race that conforms to the NKF-ASN Task Force Recommendations. Result Comment: Joi mated GFR was calculated using the 2020 CKD-EPI creatinine equation. Performed By: #### 4 6124 ####[facility] [address] [place] [address] 15702 Glenn Gudino M.D. [id number] Glucose [Mass/Vol] 112 mg/dL High 65-99 [facility] Comment on above: Order Comment: [facility] has implemented the eGFR calculation approach that does not have a coefficient for race that conforms to the NKF-ASN Task Force Recommendations. Performed By: #### 4 6124 ####[facility] [address] [place], [place] [address] Glenn Gudino M.D. [id number] HCO3 (Bld) [Moles/Vol] 28 mmol/L Normal 21-32 [facility] Comment on above: Order Comment: [facility] has implemented the eGFR calculation approach that does not have a coefficient for race that conforms to the NKF-ASN Task Force Recommendations. Performed By: #### 4 6124 ####[facility] [address] [place] [address] 91468 Glenn Gudino M.D. [id number] Potassium [Moles/Vol] 3.9 mmol/L Normal 3.5-5.1 [facility] Comment on above: Order Comment: [facility] has implemented the eGFR calculation approach that does not have a coefficient for race that conforms to the NKF-ASN Task Force Recommendations. Result Comment: Slig htly Hemolyzed Performed By: #### 4 6134 ####[facility] [address] [place] [address] 78695 Glenn Gudino M.D. [id number] Sodium [Moles/Vol] 131 mmol/L Low 135-145 [facility] Comment on above: Order Comment: [facility] has implemented the eGFR calculation approach that does not have a coefficient for race that conforms to the NKF-ASN Task Force Recommendations. Performed By: #### 4 6124 ####[facility] [address] [place] [address] 17710 Glenn Gudino M.D. [id number] Urea nitrogen [Mass/Vol] 16 mg/dL Normal 8-25 [facility] Comment on above: Order Comment: [facility] has implemented the eGFR calculation approach that does not have a coefficient for race that conforms to the NKF-ASN Task Force Recommendations. Performed By: #### 4 6124 ####[facility] [address] [place], [place] [address] Glenn Gudino M.D. [id number] Urea nitrogen/Creatinine [Mass ratio] 9.5 mg/mg Low 10.0-20.0 [facility] Comment on above: Order Comment: [facility] has implemented the eGFR calculation approach that does not have a coefficient for race that conforms to the NKF-ASN Task Force Recommendations. Performed By: #### 4 6124 ####[facility] [address] [place], [place] [address] Glenn Gudino M.D. [id number] CBCon 03-17-2024 AUTO NRBC 0.0 % Normal [facility] Comment on above: Performed By: #### 4 [id number] ####[facility] [address] [place], [place] [address] lGenn Gudino M.D. [id number] AUTO NRBC ABS COUNT 0.00 K/mcL Normal 0.00-0.00 [facility] Comment on above: Performed By: #### 4 [id number] ####[facility] [address] [place] [address] 16554 Glenn Gudino M.D. [id number] Erythrocyte distribution width (RBC) [Ratio] 20.9 % High 11.6-14.8 [facility] Comment on above: Performed By: #### 4 [id number] ####[facility] [address] [place], [place] [address] Glenn Gudino M.D. [id number] Hematocrit (Bld) [Volume fraction] 24.7 % Low 36.0-46.0 [facility] Comment on above: Performed By: #### 4 [id number] ####[facility] [address] [place] [address] Glenn Gudino M.D. [id number] Hemoglobin (Bld) [Mass/Vol] 7.5 g/dL Low 12.0-16.0 [facility] Comment on above: Performed By: #### 4 [id number] ####[facility] [address] [place] [address] Glenn Gudino M.D. [id number] MCH (RBC) [Entitic mass] 29.1 pg Normal 26.0-34.0 [facility] Comment on above: Performed By: #### 4 [id number] ####[facility] [address] [place], [place] [address] Glenn Gudino M.D. [id number] MCV (RBC) [Entitic vol] 95.7 fL Normal 80.0-100.0 [facility] Comment on above: Performed By: #### 4 [id number] ####[facility] [address] [place], [place] [address] Glenn Gudino M.D. [id number] MEAN CORPUSCULAR HEMOGLOBIN CONC 30.4 g/dL Low 31.0-37.0 [facility] Comment on above: Performed By: #### 4 [id number] ####[facility] [address] [place], [place] [address] Glenn Gudino M.D. [id number] Platelet mean volume (Bld) [Entitic vol] 9.4 fL Normal 9.4-12.4 [facility] Comment on above: Performed By: #### 4 [id number] ####[facility] [address] [place] [address] 83967 Glenn Gudino M.D. [id number] Platelets (Bld) [#/Vol] 164 10*3/uL Normal 150-400 [facility] Comment on above: Performed By: #### 4 [id number] ####[facility] [address] [place] [address] 80635 Glenn Gudino M.D. [id number] RBC (Bld) [#/Vol] 2.58 10*6/uL Low 4.00-5.20 [facility] Comment on above: Performed By: #### 4 [id number] ####[facility] [address] [place] [address] 89429 Glenn Gudino M.D. [id number] WBC (Bld) [#/Vol] 6.69 10*3/uL Normal 4.50-11.00 [facility] Comment on above: Performed By: #### 4 [id number] ####[facility] [address] [place] [address] 85853 Glenn Gudino M.D. [id number] BASIC METABOLIC PANELon 02-26 Anion gap [Moles/Vol] 15 mmol/L Normal 10-20 [facility] Comment on above: Order Comment: [facility] has implemented the eGFR calculation approach that does not have a coefficient for race that conforms to the NKF-ASN Task Force Recommendations. Performed By: #### 4 6124 ####[facility] [address] [place] [address] 29097 Glenn Gudino M.D. [id number] Calcium [Mass/Vol] 8.5 mg/dL Normal 8.4-10.2 [facility] Comment on above: Order Comment: [facility] has implemented the eGFR calculation approach that does not have a coefficient for race that conforms to the NKF-ASN Task Force Recommendations. Performed By: #### 4 6124 ####[facility] [address] [place] [address] 46922 Glenn Gudino M.D. [id number] Chloride [Moles/Vol] 97 mmol/L Low 98-108 [facility] Comment on above: Order Comment: [facility] has implemented the eGFR calculation approach that does not have a coefficient for race that conforms to the NKF-ASN Task Force Recommendations. Performed By: #### 4 6124 ####[facility] [address] [place] [address] 76514 Glenn Gudino M.D. [id number] Creatinine [Mass/Vol] 2.74 mg/dL High 0.60-1.10 [facility] Comment on above: Order Comment: [facility] has implemented the eGFR calculation approach that does not have a coefficient for race that conforms to the NKF-ASN Task Force Recommendations. Performed By: #### 4 6124 ####[facility] [address] [place] [address] 30615 Glenn Gudino M.D. [id number] EGFR 19 mL/min/1.73 m2 Low >=60 [facility] Comment on above: Order Comment: [facility] has implemented the eGFR calculation approach that does not have a coefficient for race that conforms to the NKF-ASN Task Force Recommendations. Result Comment: Joi mated GFR was calculated using the 2020 CKD-EPI creatinine equation. Performed By: #### 4 6124 ####[facility] [address] [place] [address] 24196 Glenn Gudino M.D. [id number] Glucose [Mass/Vol] 84 mg/dL Normal 65-99 [facility] Comment on above: Order Comment: [facility] has implemented the eGFR calculation approach that does not have a coefficient for race that conforms to the NKF-ASN Task Force Recommendations. Performed By: #### 4 6128 ####[facility] [address] [place] [address] 42249 Gelnn Gudino M.D. [id number] HCO3 (Bld) [Moles/Vol] 27 mmol/L Normal 21-32 [facility] Comment on above: Order Comment: [facility] has implemented the eGFR calculation approach that does not have a coefficient for race that conforms to the NKF-ASN Task Force Recommendations. Performed By: #### 4 6124 ####[facility] [address] [place] [address] Glenn Gudino M.D. [id number] Potassium [Moles/Vol] 4.5 mmol/L Normal 3.5-5.1 [facility] Comment on above: Order Comment: [facility] has implemented the eGFR calculation approach that does not have a coefficient for race that conforms to the NKF-ASN Task Force Recommendations. Result Comment: Slig htly Hemolyzed Performed By: #### 4 6102 ####[facility] [address] [place], [place] [address] Glenn Gudino M.D. [id number] Sodium [Moles/Vol] 134 mmol/L Low 135-145 [facility] Comment on above: Order Comment: [facility] has implemented the eGFR calculation approach that does not have a coefficient for race that conforms to the NKF-ASN Task Force Recommendations. Performed By: #### 4 6124 ####[facility] [address] [place], [place] [address] Glenn Gudino M.D. [id number] Urea nitrogen [Mass/Vol] 32 mg/dL High 8-25 [facility] Comment on above: Order Comment: [facility] has implemented the eGFR calculation approach that does not have a coefficient for race that conforms to the NKF-ASN Task Force Recommendations. Performed By: #### 4 6157 ####[facility] [address] [place] [address] 337[address] Glenn Gudino M.D. [id number] Urea nitrogen/Creatinine [Mass ratio] 11.7 mg/mg Normal 10.0-20.0 [facility] Comment on above: Order Comment: [facility] has implemented the eGFR calculation approach that does not have a coefficient for race that conforms to the NKF-ASN Task Force Recommendations. Performed By: #### 4 6124 ####[facility] [address] [place], [place] [address] Glenn Gudino M.D. [id number] PHOSPHORUSon 03-16-2024 Phosphate [Mass/Vol] 3.9 mg/dL Normal 2.8-4.1 [facility] Comment on above: Performed By: #### 4 6299 ####[facility] [address] [place], [place] [address] Glenn Gudino M.D. [id number] BASIC METABOLIC PANELon 02-26 Anion gap [Moles/Vol] 14 mmol/L Normal -20 [facility] Comment on above: Order Comment: [facility] has implemented the eGFR calculation approach that does not have a coefficient for race that conforms to the NKF-ASN Task Force Recommendations. Performed By: #### 4 6124 ####[facility] [address] [place] [address] Glenn Gudino M.D. [id number] Calcium [Mass/Vol] 8.3 mg/dL Low 8.4-10.2 [facility] Comment on above: Order Comment: [facility] has implemented the eGFR calculation approach that does not have a coefficient for race that conforms to the NKF-ASN Task Force Recommendations. Performed By: #### 4 6126 ####[facility] [address] [place] [address]90[address] Glenn Gudino M.D. [id number] Chloride [Moles/Vol] 96 mmol/L Low 98-108 [facility] Comment on above: Order Comment: [facility] has implemented the eGFR calculation approach that does not have a coefficient for race that conforms to the NKF-ASN Task Force Recommendations. Performed By: #### 4 6124 ####[facility] [address] [place] [address]261 Glenn Gudino M.D. [id number] Creatinine [Mass/Vol] 2.29 mg/dL High 0.60-1.10 [facility] Comment on above: Order Comment: [facility] has implemented the eGFR calculation approach that does not have a coefficient for race that conforms to the NKF-ASN Task Force Recommendations. Performed By: #### 4 6124 ####[facility] [address] [place] [address] Glenn Gudnio M.D. [id number] EGFR 24 mL/min/1.73 m2 Low >=60 [facility] Comment on above: Order Comment: [facility] has implemented the eGFR calculation approach that does not have a coefficient for race that conforms to the NKF-ASN Task Force Recommendations. Result Comment: Joi mated GFR was calculated using the 2020 CKD-EPI creatinine equation. Performed By: #### 4 6124 ####[facility] [address] [place] [address] Glenn Gudino M.D. [id number] Glucose [Mass/Vol] 74 mg/dL Normal 65-99 [facility] Comment on above: Order Comment: [facility] has implemented the eGFR calculation approach that does not have a coefficient for race that conforms to the NKF-ASN Task Force Recommendations. Performed By: #### 4 6124 ####[facility] [address] [place] [address] 24287 Glenn Gudino M.D. [id number] HCO3 (Bld) [Moles/Vol] 27 mmol/L Normal 21-32 [facility] Comment on above: Order Comment: [facility] has implemented the eGFR calculation approach that does not have a coefficient for race that conforms to the NKF-ASN Task Force Recommendations. Performed By: #### 4 6124 ####[facility] [address] [place] [address] Glenn Gudino M.D. [id number] Potassium [Moles/Vol] 4.4 mmol/L Normal 3.5-5.1 [facility] Comment on above: Order Comment: [facility] has implemented the eGFR calculation approach that does not have a coefficient for race that conforms to the NKF-ASN Task Force Recommendations. Result Comment: Slig htly Hemolyzed Performed By: #### 4 6124 ####[facility] [address] [place] [address] 16892 Glenn Gudino M.D. [id number] Sodium [Moles/Vol] 133 mmol/L Low 135-145 [facility] Comment on above: Order Comment: [facility] has implemented the eGFR calculation approach that does not have a coefficient for race that conforms to the NKF-ASN Task Force Recommendations. Performed By: #### 4 6124 ####[facility] [address] [place] [address]269 Glenn Gudino M.D. [id number] Urea nitrogen [Mass/Vol] 23 mg/dL Normal 8-25 [facility] Comment on above: Order Comment: [facility] has implemented the eGFR calculation approach that does not have a coefficient for race that conforms to the NKF-ASN Task Force Recommendations. Performed By: #### 4 6124 ####[facility] [address] [place] [address]345 Glenn Gudino M.D. [id number] Urea nitrogen/Creatinine [Mass ratio] 10.0 mg/mg Normal 10.0-20.0 [facility] Comment on above: Order Comment: [facility] has implemented the eGFR calculation approach that does not have a coefficient for race that conforms to the NKF-ASN Task Force Recommendations. Performed By: #### 4 6132 ####[facility] [address] [place], [place] [address] Glenn Gudino M.D. [id number] CBCon 03-15-2024 AUTO NRBC 0.0 % Normal [facility] Comment on above: Performed By: #### 4 [id number] ####[facility] [address] [place] [address] Glenn Gudino M.D. [id number] AUTO NRBC ABS COUNT 0.00 K/mcL Normal 0.00-0.00 [facility] Comment on above: Performed By: #### 4 [id number] ####[facility] [address] [place] [address] Glenn Gudino M.D. [id number] Erythrocyte distribution width (RBC) [Ratio] 20.6 % High 11.6-14.8 [facility] Comment on above: Performed By: #### 4 [id number] ####[facility] [address] [place] [address] Glenn Gudino M.D. [id number] Hematocrit (Bld) [Volume fraction] 27.4 % Low 36.0-46.0 [facility] Comment on above: Performed By: #### 4 [id number] ####[facility] [address] [place] [address] Glenn Gudino M.D. [id number] Hemoglobin (Bld) [Mass/Vol] 8.7 g/dL Low 12.0-16.0 [facility] Comment on above: Performed By: #### 4 [id number] ####[facility] [address] [place] [address] Glenn Gudino M.D. [id number] MCH (RBC) [Entitic mass] 29.3 pg Normal 26.0-34.0 [facility] Comment on above: Performed By: #### 4 [id number] ####[facility] [address] [place] [address] Glenn Gudino M.D. [id number] MCV (RBC) [Entitic vol] 92.3 fL Normal 80.0-100.0 [facility] Comment on above: Result Comment: Resu lts checked Performed By: #### 4 [id number] ####[facility] [address] [place] [address] Glenn Gudino M.D. [id number] MEAN CORPUSCULAR HEMOGLOBIN CONC 31.8 g/dL Normal 31.0-37.0 [facility] Comment on above: Performed By: #### 4 [id number] ####[facility] [address] [place] [address] Glenn Gudino M.D. [id number] Platelet mean volume (Bld) [Entitic vol] 10.0 fL Normal 9.4-12.4 [facility] Comment on above: Performed By: #### 4 [id number] ####[facility] [address] [place], [place] [address] Glenn Gudino M.D. [id number] Platelets (Bld) [#/Vol] 196 10*3/uL Normal 150-400 [facility] Comment on above: Performed By: #### 4 [id number] ####[facility] [address] [place], [place] [address] Glenn Gudino M.D. [id number] RBC (Bld) [#/Vol] 2.97 10*6/uL Low 4.00-5.20 [facility] Comment on above: Performed By: #### 4 [id number] ####[facility] [address] [place], [place] [address] Glenn Gudino M.D. [id number] WBC (Bld) [#/Vol] 7.75 10*3/uL Normal 4.50-11.00 [facility] Comment on above: Performed By: #### 4 [id number] ####[facility] [address] [place] [address] 269[address] Glenn Gudino M.D. [id number] MAGNESIUM LEVELon 03-15-2024 Magnesium [Mass/Vol] 1.7 mg/dL Normal 1.6-2.4 [facility] Comment on above: Performed By: #### 4 6109 ####[facility] [address] [place] [address] Glenn Gudino M.D. [id number] XR CHEST PA/APon 03-15-2024 XR CHEST PA/AP Normal [facility] Comment on above: Order Comment: Injur y/Trauma or Illness?:Illness/OtherHow long have you had these symptoms (acute/chronic)?:AcuteReason for exam?:follow upHistory of cancer?:uSurgeries, chemotherapy, or radiation?:uType of Exam?:Subsequent/Follow-upAdditional signs and symptoms?:. BASIC METABOLIC PANELon 02-26 Anion gap [Moles/Vol] 14 mmol/L Normal - [facility] Comment on above: Order Comment: [facility] has implemented the eGFR calculation approach that does not have a coefficient for race that conforms to the NKF-ASN Task Force Recommendations. Performed By: #### 4 6124 ####[facility] [address] [place] [address] Glenn Gudino M.D. [id number] Calcium [Mass/Vol] 8.4 mg/dL Normal 8.4-10.2 [facility] Comment on above: Order Comment: [facility] has implemented the eGFR calculation approach that does not have a coefficient for race that conforms to the NKF-ASN Task Force Recommendations. Performed By: #### 4 6124 ####[facility] [address] [place] [address]49 Glenn Gudino M.D. [id number] Chloride [Moles/Vol] 99 mmol/L Normal 98-108 [facility] Comment on above: Order Comment: [facility] has implemented the eGFR calculation approach that does not have a coefficient for race that conforms to the NKF-ASN Task Force Recommendations. Performed By: #### 4 6124 ####[facility] [address] [place] [address] 15568 Glenn Gudino M.D. [id number] Creatinine [Mass/Vol] 2.68 mg/dL High 0.60-1.10 [facility] Comment on above: Order Comment: [facility] has implemented the eGFR calculation approach that does not have a coefficient for race that conforms to the NKF-ASN Task Force Recommendations. Performed By: #### 4 6124 ####[facility] [address] [place] [address] Glenn Gudino M.D. [id number] EGFR 20 mL/min/1.73 m2 Low >=60 [facility] Comment on above: Order Comment: [facility] has implemented the eGFR calculation approach that does not have a coefficient for race that conforms to the NKF-ASN Task Force Recommendations. Result Comment: Joi mated GFR was calculated using the 2020 CKD-EPI creatinine equation. Performed By: #### 4 6124 ####[facility] [address] [place] [address] 12305 Glenn Gudino M.D. [id number] Glucose [Mass/Vol] 68 mg/dL Normal 65-99 [facility] Comment on above: Order Comment: [facility] has implemented the eGFR calculation approach that does not have a coefficient for race that conforms to the NKF-ASN Task Force Recommendations. Performed By: #### 4 6124 ####[facility] [address] [place] [address] 10404 Glenn Gudino M.D. [id number] HCO3 (Bld) [Moles/Vol] 26 mmol/L Normal 21-32 [facility] Comment on above: Order Comment: [facility] has implemented the eGFR calculation approach that does not have a coefficient for race that conforms to the NKF-ASN Task Force Recommendations. Performed By: #### 4 6124 ####[facility] [address] [place] [address] 49606 Glenn Gudino M.D. [id number] Potassium [Moles/Vol] 4.9 mmol/L Normal 3.5-5.1 [facility] Comment on above: Order Comment: [facility] has implemented the eGFR calculation approach that does not have a coefficient for race that conforms to the NKF-ASN Task Force Recommendations. Result Comment: Slig htly Hemolyzed Performed By: #### 4 6124 ####[facility] [address] [place] [address] 22689 Glenn Gudino M.D. [id number] Sodium [Moles/Vol] 134 mmol/L Low 135-145 [facility] Comment on above: Order Comment: [facility] has implemented the eGFR calculation approach that does not have a coefficient for race that conforms to the NKF-ASN Task Force Recommendations. Performed By: #### 4 6124 ####[facility] [address] [place] [address]68 Glenn Gudino M.D. [id number] Urea nitrogen [Mass/Vol] 23 mg/dL Normal 8-25 [facility] Comment on above: Order Comment: [facility] has implemented the eGFR calculation approach that does not have a coefficient for race that conforms to the NKF-ASN Task Force Recommendations. Performed By: #### 4 6124 ####[facility] [address] [place] [address] 93767 Glenn Gudino M.D. [id number] Urea nitrogen/Creatinine [Mass ratio] 8.6 mg/mg Low 10.0-20.0 [facility] Comment on above: Order Comment: [facility] has implemented the eGFR calculation approach that does not have a coefficient for race that conforms to the NKF-ASN Task Force Recommendations. Performed By: #### 4 6194 ####[facility] [address] [place], [place] [address] Glenn Gudino M.D. [id number] CBCon 03-14-2024 AUTO NRBC 0.0 % Normal [facility] Comment on above: Performed By: #### 4 [id number] ####[facility] [address] [place] [address] Glenn Gudino M.D. [id number] AUTO NRBC ABS COUNT 0.00 K/mcL Normal 0.00-0.00 [facility] Comment on above: Performed By: #### 4 [id number] ####[facility] [address] [place] [address] Glenn Gudino M.D. [id number] Erythrocyte distribution width (RBC) [Ratio] 19.3 % High 11.6-14.8 [facility] Comment on above: Performed By: #### 4 [id number] ####[facility] [address] [place], [place] [address] Glenn Gudino M.D. [id number] Hematocrit (Bld) [Volume fraction] 23.0 % Low 36.0-46.0 [facility] Comment on above: Performed By: #### 4 [id number] ####[facility] [address] [place], [place] [address] Glenn Gudino M.D. [id number] Hemoglobin (Bld) [Mass/Vol] 6.7 g/dL Off scale low 12.0-16.0 [facility] Comment on above: Result Comment: Resu lts called and read back verified by:.[id number] to [id number] @[id number] Performed By: #### 4 [id number] ####[facility] [address] [place], [place] [address] Glenn Gudino M.D. [id number] MCH (RBC) [Entitic mass] 28.5 pg Normal 26.0-34.0 [facility] Comment on above: Performed By: #### 4 [id number] ####[facility] [address] [place] [address] 11610 Glenn Gudino M.D. [id number] MCV (RBC) [Entitic vol] 97.9 fL Normal 80.0-100.0 [facility] Comment on above: Performed By: #### 4 [id number] ####[facility] [address] [place], [place] [address] Glenn Gudino M.D. [id number] MEAN CORPUSCULAR HEMOGLOBIN CONC 29.1 g/dL Low 31.0-37.0 [facility] Comment on above: Performed By: #### 4 [id number] ####[facility] [address] [place], [place] [address] Glenn Gudino M.D. [id number] Platelet mean volume (Bld) [Entitic vol] 9.4 fL Normal 9.4-12.4 [facility] Comment on above: Performed By: #### 4 [id number] ####[facility] [address] [place], [place] [address] Glenn Gudino M.D. [id number] Platelets (Bld) [#/Vol] 181 10*3/uL Normal 150-400 [facility] Comment on above: Performed By: #### 4 [id number] ####[facility] [address] [place], [place] [address] Glenn Gudino M.D. [id number] RBC (Bld) [#/Vol] 2.35 10*6/uL Low 4.00-5.20 [facility] Comment on above: Performed By: #### 4 [id number] ####[facility] [address] [place], [place] [address] Glenn Gudino M.D. [id number] WBC (Bld) [#/Vol] 6.70 10*3/uL Normal 4.50-11.00 [facility] Comment on above: Performed By: #### 4 [id number] ####[facility] [address] [place] [address] 10662 Glenn Gudino M.D. [id number] HEMOGLOBIN AND HEMATOCRITon 03-14-2024 Hematocrit (Bld) [Volume fraction] 27.8 % Low 36.0-46.0 [facility] Comment on above: Performed By: #### 4 6909 ####[facility] [address] [place] [address] Glenn Gudino M.D. [id number] Hemoglobin (Bld) [Mass/Vol] 8.5 g/dL Low 12.0-16.0 [facility] Comment on above: Result Comment: Resu lts checked Performed By: #### 4 6909 ####[facility] [address] [place], [place] [address] Glenn Gudino M.D. [id number] MAGNESIUM LEVELon 03-14-2024 Magnesium [Mass/Vol] 1.8 mg/dL Normal 1.6-2.4 [facility] Comment on above: Performed By: #### 4 6109 ####[facility] [address] [place], [place] [address] Glenn Gudino M.D. [id number] NT PRO BNPon 03-14-2024 Natriuretic peptide B (Bld) [Mass/Vol] 93217 pg/mL High 0-300 [facility] Comment on above: Order Comment: Pride Study Cut-offsRule In:< /= 50 Years >450 pg/mL51 Years - 75 Years >900 pg/mL76 Years - 99 Years >1800 pg/mLRule Out:All patients <300 pg/mL Performed By: #### 4 7395 ####[facility] [address] [place], [place] [address] Glenn Gudino M.D. [id number] WOUND AEROBIC AND ANAEROBIC CULTUREon 03-14-2024 WOUND AEROBIC AND ANAEROBIC CULTURE CULTURE No Anaerobic Growth after 5 days Heavy Growth Normal Enteric Cherelle GRAM STAIN RESULT Moderate WBC Few Gram Positive Cocci Few Gram Negative Bacilli Normal [facility] Comment on above: Performed By: #### 4 4287 ####[facility] [address] [place] [address] 32621 Glenn Gudino M.D. [id number] WOUND AFB CULTUREon 03-14-20 WOUND AFB CULTURE AFB CULTURE No Growth of Acid Fast Bacilli after 8 Weeks AFB STAIN (2018) No Acid Fast Bacilli Seen Normal [facility] Comment on above: Performed By: #### 4 4286 ####[facility] [address] [place] [address]29 Glenn Gudino M.D. [id number] WOUND FUNGUS CULTUREon 03-14 WOUND FUNGUS CULTURE FUNGUS CULTURE No Fungus Isolated At 4 Weeks FUNGAL SMEAR No Fungal or Yeast Elements Normal [facility] Comment on above: Performed By: #### 4 4288 ####[facility] [address] [place] [address]606 Glenn Gudino M.D. [id number] BASIC METABOLIC PANELon 02-26 Anion gap [Moles/Vol] 11 mmol/L Normal 03-17 [facility] Comment on above: Order Comment: [facility] has implemented the eGFR calculation approach that does not have a coefficient for race that conforms to the NKF-ASN Task Force Recommendations. Performed By: #### 4 6124 ####[facility] [address] [place] [address] 40560 Glenn Gudino M.D. [id number] Calcium [Mass/Vol] 8.4 mg/dL Normal 8.4-10.2 [facility] Comment on above: Order Comment: [facility] has implemented the eGFR calculation approach that does not have a coefficient for race that conforms to the NKF-ASN Task Force Recommendations. Performed By: #### 4 6124 ####[facility] [address] [place] [address] 76872 Glenn Gudino M.D. [id number] Chloride [Moles/Vol] 98 mmol/L Normal 98-108 [facility] Comment on above: Order Comment: [facility] has implemented the eGFR calculation approach that does not have a coefficient for race that conforms to the NKF-ASN Task Force Recommendations. Performed By: #### 4 6124 ####[facility] [address] [place], [place] [address] Glenn Gudino M.D. [id number] Creatinine [Mass/Vol] 2.18 mg/dL High 0.60-1.10 [facility] Comment on above: Order Comment: [facility] has implemented the eGFR calculation approach that does not have a coefficient for race that conforms to the NKF-ASN Task Force Recommendations. Performed By: #### 4 6124 ####[facility] [address] [place], [place] [address] Glenn Gudino M.D. [id number] EGFR 25 mL/min/1.73 m2 Low >=60 [facility] Comment on above: Order Comment: [facility] has implemented the eGFR calculation approach that does not have a coefficient for race that conforms to the NKF-ASN Task Force Recommendations. Result Comment: Joi mated GFR was calculated using the 2020 CKD-EPI creatinine equation. Performed By: #### 4 6124 ####[facility] [address] [place], [place] [address] Glenn Gudino M.D. [id number] Glucose [Mass/Vol] 79 mg/dL Normal 65-99 [facility] Comment on above: Order Comment: [facility] has implemented the eGFR calculation approach that does not have a coefficient for race that conforms to the NKF-ASN Task Force Recommendations. Performed By: #### 4 6124 ####[facility] [address] [place] [address] 18076 Glenn Gudino M.D. [id number] HCO3 (Bld) [Moles/Vol] 29 mmol/L Normal 21-32 [facility] Comment on above: Order Comment: [facility] has implemented the eGFR calculation approach that does not have a coefficient for race that conforms to the NKF-ASN Task Force Recommendations. Performed By: #### 4 6124 ####[facility] [address] [place] [address] 41726 Glenn Gudino M.D. [id number] Potassium [Moles/Vol] 4.3 mmol/L Normal 3.5-5.1 [facility] Comment on above: Order Comment: [facility] has implemented the eGFR calculation approach that does not have a coefficient for race that conforms to the NKF-ASN Task Force Recommendations. Performed By: #### 4 6124 ####[facility] [address] [place] [address] 450[address] Glenn Gudino M.D. [id number] Sodium [Moles/Vol] 134 mmol/L Low 135-145 [facility] Comment on above: Order Comment: [facility] has implemented the eGFR calculation approach that does not have a coefficient for race that conforms to the NKF-ASN Task Force Recommendations. Performed By: #### 4 6124 ####[facility] [address] [place] [address] 46771 Glenn Gudino M.D. [id number] Urea nitrogen [Mass/Vol] 16 mg/dL Normal 8-25 [facility] Comment on above: Order Comment: [facility] has implemented the eGFR calculation approach that does not have a coefficient for race that conforms to the NKF-ASN Task Force Recommendations. Performed By: #### 4 6124 ####[facility] [address] [place] [address] 68393 Glenn Gudino M.D. [id number] Urea nitrogen/Creatinine [Mass ratio] 7.3 mg/mg Low 10.0-20.0 [facility] Comment on above: Order Comment: [facility] has implemented the eGFR calculation approach that does not have a coefficient for race that conforms to the NKF-ASN Task Force Recommendations. Performed By: #### 4 6124 ####[facility] [address] [place] [address] Glenn Gudino M.D. [id number] CALCIUM, IONIZEDon CALCIUM IONIZED 4.6 mg/dL Normal 4.5-5.3 [facility] Comment on above: Performed By: #### 4 5190 ####[facility] [address] [place] [address] Glenn Gudino M.D. [id number] CBCon 03-13-2024 AUTO NRBC 0.0 % Normal [facility] Comment on above: Performed By: #### 4 [id number] ####[facility] [address] [place], [place] [address] Glenn Gudino M.D. [id number] AUTO NRBC ABS COUNT 0.00 K/mcL Normal 0.00-0.00 [facility] Comment on above: Performed By: #### 4 [id number] ####[facility] [address] [place], [place] [address] Glenn Gudino M.D. [id number] Erythrocyte distribution width (RBC) [Ratio] 18.7 % High 11.6-14.8 [facility] Comment on above: Performed By: #### 4 [id number] ####[facility] [address] [place], [place] [address] Glenn Gudino M.D. [id number] Hematocrit (Bld) [Volume fraction] 22.1 % Low 36.0-46.0 [facility] Comment on above: Performed By: #### 4 [id number] ####[facility] [address] [place], [place] [address] Glenn Gudino M.D. [id number] Hemoglobin (Bld) [Mass/Vol] 7.0 g/dL Low 12.0-16.0 [facility] Comment on above: Performed By: #### 4 [id number] ####[facility] [address] [place], [place] [address] Glenn Gudino M.D. [id number] MCH (RBC) [Entitic mass] 30.2 pg Normal 26.0-34.0 [facility] Comment on above: Performed By: #### 4 [id number] ####[facility] [address] [place] [address] Glenn Gudnio M.D. [id number] MCV (RBC) [Entitic vol] 95.3 fL Normal 80.0-100.0 [facility] Comment on above: Performed By: #### 4 [id number] ####[facility] [address] [place], [place] [address] Glenn Gudino M.D. [id number] MEAN CORPUSCULAR HEMOGLOBIN CONC 31.7 g/dL Normal 31.0-37.0 [facility] Comment on above: Performed By: #### 4 [id number] ####[facility] [address] [place], [place] [address] Glenn Gudino M.D. [id number] Platelet mean volume (Bld) [Entitic vol] 9.7 fL Normal 9.4-12.4 [facility] Comment on above: Performed By: #### 4 [id number] ####[facility] [address] [place], [place] [address] Glenn Gudino M.D. [id number] Platelets (Bld) [#/Vol] 187 10*3/uL Normal 150-400 [facility] Comment on above: Performed By: #### 4 [id number] ####[facility] [address] [place], [place] [address] Glenn Gudino M.D. [id number] RBC (Bld) [#/Vol] 2.32 10*6/uL Low 4.00-5.20 [facility] Comment on above: Performed By: #### 4 [id number] ####[facility] [address] [place] [address] 457[address] Glenn Gudino M.D. [id number] WBC (Bld) [#/Vol] 5.89 10*3/uL Normal 4.50-11.00 [facility] Comment on above: Performed By: #### 4 [id number] ####[facility] [address] [place], [place] [address] Glenn Gudino M.D. [id number] CONSULTon 03-13-2024 CONSULT Normal [facility] HEPATITIS B SURFACE ANTIGENo n 03-13-2024 HEPATITIS B SURFACE ANTIGEN Positive Abnormal Negative [facility] Comment on above: Order Comment: Test performed using VignaniAS immunoassay system Performed By: #### 4 4081 ####[facility] [address] [place], [place] [address] Glenn Gudino M.D. [id number] MAGNESIUM LEVELon 03-13-2024 Magnesium [Mass/Vol] 1.6 mg/dL Normal 1.6-2.4 [facility] Comment on above: Performed By: #### 4 6109 ####[facility] [address] [place], [place] [address] Glenn Gudino M.D. [id number] PHOSPHORUSon 03-13-2024 Phosphate [Mass/Vol] 2.8 mg/dL Normal 2.8-4.1 [facility] Comment on above: Performed By: #### 4 6299 ####[facility] [address] [place] [address] 499[address] Glenn Gudino M.D. [id number] PROTEIN / CREATININE RATIO, URINEon 03-13-2024 CREATININE,UR 62.4 mg/dL Normal [facility] Comment on above: Performed By: #### 4 7136 ####[facility] [address] [place] [address] 46475 Glenn Gudino M.D. [id number] Protein (U) [Mass/Vol] 225.4 mg/dL Normal R [facility] Comment on above: Performed By: #### 4 7136 ####[facility] [address] [place] [address] 57[address] Glenn Gudino M.D. [id number] PROTEIN CREATININE RATIO 3.6 ratio High 0.0-0.2 [facility] Comment on above: Performed By: #### 4 7136 ####[facility] [address] [place], [place] [address] Glenn Gudino M.D. [id number] URINALYSISon 03-13-2024 AMORPHOUS CRYSTALS Many Abnormal None Seen , Rare [facility] Comment on above: Order Comment: Micro scopic examination is performed on all urinalysis samples and only positive findings are reported. The test for blood on the chemical analytic portion of urinalysis may also be positive due to hemoglobinuria and myoglobinuria and if red blood cells are present they are quantified by microscopic examination. Performed By: #### 4 6625 ####[facility] [address] [place], [place] [address] Glenn Gudino M.D. [id number] BACTERIA, URINE Rare Abnormal None Seen [facility] Comment on above: Order Comment: Micro scopic examination is performed on all urinalysis samples and only positive findings are reported. The test for blood on the chemical analytic portion of urinalysis may also be positive due to hemoglobinuria and myoglobinuria and if red blood cells are present they are quantified by microscopic examination. Performed By: #### 4 6625 ####[facility] [address] [place], [place] [address] Glenn Gudino M.D. [id number] BILIRUBIN, URINE Negative Normal Negative [facility] Comment on above: Order Comment: Micro scopic examination is performed on all urinalysis samples and only positive findings are reported. The test for blood on the chemical analytic portion of urinalysis may also be positive due to hemoglobinuria and myoglobinuria and if red blood cells are present they are quantified by microscopic examination. Performed By: #### 4 6625 ####[facility] [address] [place] [address] Glenn Gudino M.D. [id number] BLOOD, URINE Small Abnormal Negative [facility] Comment on above: Order Comment: Micro scopic examination is performed on all urinalysis samples and only positive findings are reported. The test for blood on the chemical analytic portion of urinalysis may also be positive due to hemoglobinuria and myoglobinuria and if red blood cells are present they are quantified by microscopic examination. Performed By: #### 4 6625 ####[facility] [address] [place] [address] Glenn Gudino M.D. [id number] CALCIUM OXALATE CRYSTALS Many Abnormal None Seen [facility] Comment on above: Order Comment: Micro scopic examination is performed on all urinalysis samples and only positive findings are reported. The test for blood on the chemical analytic portion of urinalysis may also be positive due to hemoglobinuria and myoglobinuria and if red blood cells are present they are quantified by microscopic examination. Performed By: #### 4 6625 ####[facility] [address] [place] [address] Glenn Gudino M.D. [id number] Clarity (U) Cloudy Abnormal Clear [facility] Comment on above: Order Comment: Micro scopic examination is performed on all urinalysis samples and only positive findings are reported. The test for blood on the chemical analytic portion of urinalysis may also be positive due to hemoglobinuria and myoglobinuria and if red blood cells are present they are quantified by microscopic examination. Performed By: #### 4 6625 ####[facility] [address] [place] [address] Glenn Gudino M.D. [id number] Color (U) Yellow Normal Colorless, Yellow [facility] Comment on above: Order Comment: Micro scopic examination is performed on all urinalysis samples and only positive findings are reported. The test for blood on the chemical analytic portion of urinalysis may also be positive due to hemoglobinuria and myoglobinuria and if red blood cells are present they are quantified by microscopic examination. Performed By: #### 4 6625 ####[facility] [address] [place] [address] Glenn Gudino M.D. [id number] Glucose Ql (U) Negative Normal Negative [facility] Comment on above: Order Comment: Micro scopic examination is performed on all urinalysis samples and only positive findings are reported. The test for blood on the chemical analytic portion of urinalysis may also be positive due to hemoglobinuria and myoglobinuria and if red blood cells are present they are quantified by microscopic examination. Performed By: #### 4 6625 ####[facility] [address] [place] [address] Glenn Gudino M.D. [id number] Ketones Ql (U) Negative Normal Negative [facility] Comment on above: Order Comment: Micro scopic examination is performed on all urinalysis samples and only positive findings are reported. The test for blood on the chemical analytic portion of urinalysis may also be positive due to hemoglobinuria and myoglobinuria and if red blood cells are present they are quantified by microscopic examination. Performed By: #### 4 6625 ####[facility] [address] [place] [address] Glenn Gudino M.D. [id number] Leukocyte esterase Test strip Ql (U) Large Abnormal Negative [facility] Comment on above: Order Comment: Micro scopic examination is performed on all urinalysis samples and only positive findings are reported. The test for blood on the chemical analytic portion of urinalysis may also be positive due to hemoglobinuria and myoglobinuria and if red blood cells are present they are quantified by microscopic examination. Performed By: #### 4 6625 ####[facility] [address] [place] [address] Glenn Gudino M.D. [id number] MUCUS, URINE Many Abnormal None Seen, Rare [facility] Comment on above: Order Comment: Micro scopic examination is performed on all urinalysis samples and only positive findings are reported. The test for blood on the chemical analytic portion of urinalysis may also be positive due to hemoglobinuria and myoglobinuria and if red blood cells are present they are quantified by microscopic examination. Performed By: #### 4 6625 ####[facility] [address] [place] [address] 46002 Glenn Gudino M.D. [id number] NITRITE, URINE Negative Normal Negative [facility] Comment on above: Order Comment: Micro scopic examination is performed on all urinalysis samples and only positive findings are reported. The test for blood on the chemical analytic portion of urinalysis may also be positive due to hemoglobinuria and myoglobinuria and if red blood cells are present they are quantified by microscopic examination. Performed By: #### 4 6625 ####[facility] [address] [place] [address] 18456 Glenn Gudino M.D. [id number] pH (U) 8.5 [pH] High 5.0-7.0 [facility] Comment on above: Order Comment: Micro scopic examination is performed on all urinalysis samples and only positive findings are reported. The test for blood on the chemical analytic portion of urinalysis may also be positive due to hemoglobinuria and myoglobinuria and if red blood cells are present they are quantified by microscopic examination. Performed By: #### 4 6625 ####[facility] [address] [place] [address] 15608 Glenn Gudino M.D. [id number] PROTEIN, URINE >=300 Abnormal Negative [facility] Comment on above: Order Comment: Micro scopic examination is performed on all urinalysis samples and only positive findings are reported. The test for blood on the chemical analytic portion of urinalysis may also be positive due to hemoglobinuria and myoglobinuria and if red blood cells are present they are quantified by microscopic examination. Performed By: #### 4 6625 ####[facility] [address] [place], [place] [address] Glenn Gudino M.D. [id number] RBC LM.HPF (Urine sed) [#/Area] 2 /[HPF] Normal 0-3 [facility] Comment on above: Order Comment: Micro scopic examination is performed on all urinalysis samples and only positive findings are reported. The test for blood on the chemical analytic portion of urinalysis may also be positive due to hemoglobinuria and myoglobinuria and if red blood cells are present they are quantified by microscopic examination. Performed By: #### 4 6625 ####[facility] [address] [place] [address] Glenn Gudino M.D. [id number] Specific gravity (U) [Rel density] 1.014 Normal 1.005-1.02 5 [facility] Comment on above: Order Comment: Micro scopic examination is performed on all urinalysis samples and only positive findings are reported. The test for blood on the chemical analytic portion of urinalysis may also be positive due to hemoglobinuria and myoglobinuria and if red blood cells are present they are quantified by microscopic examination. Performed By: #### 4 6625 ####[facility] [address] [place], [place] [address] Glenn Gudino M.D. [id number] SQUAMOUS EPITHELIAL 1 /hpf Normal 0-4 [facility] Comment on above: Order Comment: Micro scopic examination is performed on all urinalysis samples and only positive findings are reported. The test for blood on the chemical analytic portion of urinalysis may also be positive due to hemoglobinuria and myoglobinuria and if red blood cells are present they are quantified by microscopic examination. Performed By: #### 4 6625 ####[facility] [address] [place] [address] Glenn Gudino M.D. [id number] UROBILINOGEN, URINE <2.0 Normal <2.0 [facility] Comment on above: Order Comment: Micro scopic examination is performed on all urinalysis samples and only positive findings are reported. The test for blood on the chemical analytic portion of urinalysis may also be positive due to hemoglobinuria and myoglobinuria and if red blood cells are present they are quantified by microscopic examination. Performed By: #### 4 6625 ####[facility] [address] [place] [address] Glenn Gudino M.D. [id number] WBC CLUMPS, URINE Rare Abnormal None Seen [facility] [...] microscopic examination. Performed By: #### 4 6625 ####[facility] [address] [place] [address] Glenn Gudino M.D. [id number] WBC LM.HPF (Urine sed) [#/Area] 23 /[HPF] High 0-5 [facility] Comment on above: Order Comment: Micro scopic examination is performed on all urinalysis samples and only positive findings are reported. The test for blood on the chemical analytic portion of urinalysis may also be positive due to hemoglobinuria and myoglobinuria and if red blood cells are present they are quantified by microscopic examination. Performed By: #### 4 6625 ####[facility] [address] [place] [address] Glenn Gudino M.D. [id number] US DOPPLER SEGMENTAL ARTERIA L LEGS BILATERALon 03-13-2024 US DOPPLER SEGMENTAL ARTERIAL LEGS BILATERAL Normal [facility] ANTIBODY IDENTIFICATION-Con 03-12-2024 ANTIBODY IDENTIFICATION-C Normal [facility] Comment on above: Performed By: #### 4 6427_Anti-C ####[facility] [address] [place] [address] Nurys Oneill MD [id number] [facility] B12/FOLATEon 03-12-2024 Cobalamin (Vitamin B12) [Mass/Vol] 536 pg/mL Normal 232-1245 [facility] Comment on above: Performed By: #### 4 6967 ####[facility] [address] [place] [address] 50571 Glenn Gudino M.D. [id number] FOLATE 19.1 ng/mL High 3.1-17.5 [facility] Comment on above: Result Comment: Defi cient <2.2Borderline 2.2 - 3.0Excessive >17.5 Performed By: #### 4 6967 ####[facility] [address] [place] [address] 69930 Glenn Gudino M.D. [id number] BASIC METABOLIC PANELon 02-26 Anion gap [Moles/Vol] 11 mmol/L Normal 10-20 [facility] Comment on above: Order Comment: [facility] has implemented the eGFR calculation approach that does not have a coefficient for race that conforms to the NKF-ASN Task Force Recommendations. Performed By: #### 4 6124 ####[facility] [address] [place] [address] 06018 Glenn Gudino M.D. [id number] Calcium [Mass/Vol] 8.3 mg/dL Low 8.4-10.2 [facility] Comment on above: Order Comment: [facility] has implemented the eGFR calculation approach that does not have a coefficient for race that conforms to the NKF-ASN Task Force Recommendations. Performed By: #### 4 6124 ####[facility] [address] [place] [address] 94278 Glenn Gudino M.D. [id number] Chloride [Moles/Vol] 98 mmol/L Normal 98-108 [facility] Comment on above: Order Comment: [facility] has implemented the eGFR calculation approach that does not have a coefficient for race that conforms to the NKF-ASN Task Force Recommendations. Performed By: #### 4 6124 ####[facility] [address] [place] [address] 30075 Glenn Gudino M.D. [id number] Creatinine [Mass/Vol] 1.88 mg/dL High 0.60-1.10 [facility] Comment on above: Order Comment: [facility] has implemented the eGFR calculation approach that does not have a coefficient for race that conforms to the NKF-ASN Task Force Recommendations. Performed By: #### 4 6124 ####[facility] [address] [place] [address] 56291 Glenn Gudino M.D. [id number] EGFR 30 mL/min/1.73 m2 Low >=60 [facility] Comment on above: Order Comment: [facility] has implemented the eGFR calculation approach that does not have a coefficient for race that conforms to the NKF-ASN Task Force Recommendations. Result Comment: Joi mated GFR was calculated using the 2020 CKD-EPI creatinine equation. Performed By: #### 4 6124 ####[facility] [address] [place] [address] 31139 Glenn Gudino M.D. [id number] Glucose [Mass/Vol] 75 mg/dL Normal 65-99 [facility] Comment on above: Order Comment: [facility] has implemented the eGFR calculation approach that does not have a coefficient for race that conforms to the NKF-ASN Task Force Recommendations. Performed By: #### 4 6124 ####[facility] [address] [place] [address] 66774 Glenn Gudino M.D. [id number] HCO3 (Bld) [Moles/Vol] 32 mmol/L Normal 21-32 [facility] Comment on above: Order Comment: [facility] has implemented the eGFR calculation approach that does not have a coefficient for race that conforms to the NKF-ASN Task Force Recommendations. Performed By: #### 4 6124 ####[facility] [address] [place], [place] [address] Glenn Gudino M.D. [id number] Potassium [Moles/Vol] 4.2 mmol/L Normal 3.5-5.1 [facility] Comment on above: Order Comment: [facility] has implemented the eGFR calculation approach that does not have a coefficient for race that conforms to the NKF-ASN Task Force Recommendations. Performed By: #### 4 6124 ####[facility] [address] [place], [place] [address] Glenn Gudino M.D. [id number] Sodium [Moles/Vol] 137 mmol/L Normal 135-145 [facility] Comment on above: Order Comment: [facility] has implemented the eGFR calculation approach that does not have a coefficient for race that conforms to the NKF-ASN Task Force Recommendations. Performed By: #### 4 6124 ####[facility] [address] [place], [place] [address] Glenn Gudino M.D. [id number] Urea nitrogen [Mass/Vol] 12 mg/dL Normal 8-25 [facility] Comment on above: Order Comment: [facility] has implemented the eGFR calculation approach that does not have a coefficient for race that conforms to the NKF-ASN Task Force Recommendations. Performed By: #### 4 6124 ####[facility] [address] [place], [place] [address] Glenn Gudino M.D. [id number] Urea nitrogen/Creatinine [Mass ratio] 6.4 mg/mg Low 10.0-20.0 [facility] Comment on above: Order Comment: [facility] has implemented the eGFR calculation approach that does not have a coefficient for race that conforms to the NKF-ASN Task Force Recommendations. Performed By: #### 4 6124 ####[facility] [address] [place], [place] [address] Glenn Gudino M.D. [id number] CBC W/Diff, Automatedon 10-1 5-2024 PATH REV Reviewed Normal [facility] Comment on above: Result Comment: Neut rophilic leukocytosis.Normocytic anemia.Clinical correlation necessary.Cuba Manley M.D. 03/12/24 AMENDED REPORT 03/12/24 1442 PATH REV previously reported as: September Performed By: #### L 100.0100, L500.2500 ####[facility] [id number] [place], [address] CBC WITH AUTO DIFFERENTIALon 03-12-2024 AUTO NRBC 0.0 % Normal [facility] Comment on above: Performed By: #### L [id number] ####[facility] [address] [place] [address] Glenn Gudino M.D. [id number] AUTO NRBC ABS COUNT 0.00 K/mcL Normal 0.00-0.00 [facility] Comment on above: Performed By: #### L [id number] ####[facility] [address] [place] [address] Glenn Gudino M.D. [id number] Erythrocyte distribution width (RBC) [Ratio] 18.3 % High 11.6-14.8 [facility] Comment on above: Performed By: #### L [id number] ####[facility] [address] [place], [place] [address] Glenn Gudino M.D. [id number] Hematocrit (Bld) [Volume fraction] 23.7 % Low 36.0-46.0 [facility] Comment on above: Performed By: #### L [id number] ####[facility] [address] [place], [place] [address] Glenn Gudino M.D. [id number] Hemoglobin (Bld) [Mass/Vol] 7.0 g/dL Low 12.0-16.0 [facility] Comment on above: Performed By: #### L [id number] ####[facility] [address] [place], [place] [address] Glenn Gudino M.D. [id number] MCH (RBC) [Entitic mass] 28.7 pg Normal 26.0-34.0 [facility] Comment on above: Performed By: #### Hugh [id number] ####[facility] [address] [place] [address] Glenn Gudino M.D. [id number] MCV (RBC) [Entitic vol] 97.1 fL Normal 80.0-100.0 [facility] Comment on above: Performed By: #### Hugh [id number] ####[facility] [address] [place] [address] Glenn Gudino M.D. [id number] MEAN CORPUSCULAR HEMOGLOBIN CONC 29.5 g/dL Low 31.0-37.0 [facility] Comment on above: Performed By: #### Hugh [id number] ####[facility] [address] [place] [address] Glenn Gudino M.D. [id number] Platelet mean volume (Bld) [Entitic vol] 9.6 fL Normal 9.4-12.4 [facility] Comment on above: Performed By: #### Hugh [id number] ####[facility] [address] [place], [place] [address] Glenn Gudino M.D. [id number] Platelets (Bld) [#/Vol] 180 10*3/uL Normal 150-400 [facility] Comment on above: Performed By: #### Hugh [id number] ####[facility] [address] [place], [place] [address] Glenn Gudino M.D. [id number] RBC (Bld) [#/Vol] 2.44 10*6/uL Low 4.00-5.20 [facility] Comment on above: Performed By: #### L [id number] ####[facility] [address] [place] [address] Glenn Gudino M.D. [id number] WBC (Bld) [#/Vol] 5.26 10*3/uL Normal 4.50-11.00 [facility] Comment on above: Performed By: #### L [id number] ####[facility] [address] [place] [address] Glenn Gudino M.D. [id number] COMPLEMENT DIRECT ANTIGLOBUL IN TESTon 03-12-2024 COMPLEMENT DIRECT ANTIGLOBULIN TEST Negative Normal [facility] Comment on above: Performed By: #### 4 6847 ####[facility] [address] [place] [address] Nurys Oneill MD [id number] RMHTS CONSULTon 03-12-2024 CONSULT Normal [facility] CONSULT Normal [facility] ED Prov Noteon 03-12-2024 ED Prov Note Normal [facility] ELUTION-WAAon 03-12-2024 ELUTION-WAA Normal [facility] Comment on above: Performed By: #### 4 [id number] ####[facility] [address] [place] [address] Nurys Oneill MD [id number] RMHTS GIGGon 03-12-[address] [facility] Comment on above: Performed By: #### G IGG ####[facility] [address] [place] [address] Nurys Oneill MD [id number] RMHTS H AND Ney 03-12-2024 H AND P Normal [facility] HEPATIC FUNCTION PANELon Albumin [Mass/Vol] 2.9 g/dL Low 3.2-5.2 [facility] Comment on above: Performed By: #### 4 5866 ####[facility] [address] [place] [address] Glenn Gudino M.D. [id number] ALP [Catalytic activity/Vol] 52 U/L Normal 40-150 [facility] Comment on above: Performed By: #### 4 5866 ####[facility] [address] [place], [place] [address] Glenn Gudino M.D. [id number] ALT < Normal 0-35 U/L [facility] Comment on above: Performed By: #### 4 5866 ####[facility] [address] [place] [address] Glenn Gudino M.D. [id number] AST [Catalytic activity/Vol] 26 U/L Normal 0-35 U/L [facility] Comment on above: Performed By: #### 4 5866 ####[facility] [address] [place] [address] Glenn Gudino M.D. [id number] Bilirubin [Mass/Vol] 0.4 mg/dL Normal 0.0-1.3 [facility] Comment on above: Performed By: #### 4 5866 ####[facility] [address] [place], [place] [address] Glenn Gudino M.D. [id number] Bilirubin.indirect [Mass/Vol] 0.2 mg/dL Normal 0.0-0.4 [facility] Comment on above: Performed By: #### 4 5866 ####[facility] [address] [place], [place] [address] Glenn Gudino M.D. [id number] Protein [Mass/Vol] 6.5 g/dL Normal 6.0-8.0 [facility] Comment on above: Performed By: #### 4 5866 ####[facility] [address] [place], [place] [address] Glenn Gudino M.D. [id number] IRON STUDY WITH FERRITINon Ferritin [Mass/Vol] 2720 ng/mL High 13-150 [facility] Comment on above: Performed By: #### 4 7645 ####[facility] [address] [place], [place] [address] Glenn Gudino M.D. [id number] Iron [Mass/Vol] 23 ug/dL Low 30-160 [facility] Comment on above: Performed By: #### 4 7645 ####[facility] [address] [place] [address] Glenn Gudino M.D. [id number] IRON SATURATION 22 % Normal 20-50 [facility] Comment on above: Performed By: #### 4 7645 ####[facility] [address] [place] [address] Glenn Gudino M.D. [id number] TIBC (CALCULATED) 104 mcg/dL Low 225-430 [facility] Comment on above: Performed By: #### 4 7645 ####[facility] [address] [place] [address] Glenn Gudino M.D. [id number] LACTIC ACID, PLASMAon 2023 LACTIC ACID, PLASMA 0.8 mmol/L Normal 0.6-2.0 [facility] Comment on above: Performed By: #### 4 6053 ####[facility] [address] [place] [address] Glenn Gudino M.D. [id number] MANUAL DIFFERENTIALon 2023 BASOPHILS - ABS (DIFF) 0.00 K/mcL Normal 0.00-0.30 [facility] Comment on above: Performed By: #### 4 7762 ####[facility] [address] [place] [address] Glenn Gudino M.D. [id number] BASOPHILS - REL (DIFF) 0.0 % Normal [facility] Comment on above: Performed By: #### 4 3961 ####[facility] [address] [place], [place] [address] Glenn Gudino M.D. [id number] EOSINOPHILS - ABS (DIFF) 0.00 K/mcL Normal 0.00-0.50 [facility] Comment on above: Performed By: #### 4 4290 ####[facility] [address] [place] [address] Glenn Gudino M.D. [id number] EOSINOPHILS - REL (DIFF) 0.0 % Normal [facility] Comment on above: Performed By: #### 4 4660 ####[facility] [address] [place] [address] Glenn Gudino M.D. [id number] LYMPHOCYTES - ABS (DIFF) 0.32 K/mcL Low 0.90-4.00 [facility] Comment on above: Performed By: #### 4 4484 ####[facility] [address] [place] [address] Glenn Gudino M.D. [id number] LYMPHOCYTES - REL (DIFF) 6.0 % Normal [facility] Comment on above: Performed By: #### 4 5651 ####[facility] [address] [place], [place] [address] Glenn Gudino M.D. [id number] METAMYELOCYTES-REL (DIFF) 2.0 % Normal [facility] Comment on above: Performed By: #### 4 5976 ####[facility] [address] [place], [place] [address] Glenn Gudino M.D. [id number] MONOCYTES - ABS (DIFF) 0.16 K/mcL Low 0.30-0.90 Ri [facility] Comment on above: Performed By: #### 4 6550 ####[facility] [address] [place], [place] [address] Glenn Gudino M.D. [id number] MONOCYTES - REL (DIFF) 3.0 % Normal Ri [facility] Comment on above: Performed By: #### 4 5456 ####[facility] [address] [place], [place] [address] Glenn Gudino M.D. [id number] MYELOCYTES RELATIVE PERCENT 1.0 % Normal [facility] Comment on above: Performed By: #### 4 5456 ####[facility] [address] [place] [address] Glenn Gudino M.D. [id number] NEUTROPHILS - ABS (DIFF) 4.79 K/mcL Normal 1.70-7.00 [facility] Comment on above: Result Comment: Left Shift Confirmed. Performed By: #### 4 5456 ####[facility] [address] [place] [address] Glenn Gudino M.D. [id number] NEUTROPHILS - REL (DIFF) 88.0 % Normal [facility] Comment on above: Performed By: #### 4 5456 ####[facility] [address] [place], [place] [address] Glenn Gudino M.D. [id number] MORPHOLOGYon 03-12-2024 OVAL SCAN Few Normal [facility] Comment on above: Performed By: #### L [id number] ####[facility] [address] [place], [place] [address] Glenn Gudino M.D. [id number] PLATELET ESTIMATE Normal Normal Normal [facility] Comment on above: Performed By: #### L AB295 ####[facility] [address] [place], [place] [address] Glenn Gudino M.D. [id number] POLY SCAN Few Normal [facility] Comment on above: Performed By: #### L AB295 ####[facility] [address] [place] [address] Glenn Gudino M.D. [id number] RBC MORPH SCAN See Comment Normal [facility] Comment on above: Result Comment: RBC Indices confirmed with manual peripheral smear review. Performed By: #### L AB295 ####[facility] [address] [place], [place] [address] Glenn Gudino M.D. [id number] TEAR DROP CELL SCAN Few Normal [facility] Comment on above: Performed By: #### L AB295 ####[facility] [address] [place] [address] Glenn Gudino M.D. [id number] PERIPHERAL SMEAR REVIEW (KETAN HS ONLY)on 03-12-2024 SMEAR REVIEW See Comment Normal [facility] Comment on above: Result Comment: Smea r reviewed for possible immature cells. Performed By: #### C 36063 ####[facility] [address] [place] [address] Glenn Gudino M.D. [id number] RETICULOCYTEon 03-12-2024 IMMATURE RETIC FRACT 26.2 % High 2.3-15.9 [facility] Comment on above: Performed By: #### 4 6452 ####[facility] [address] [place], [place] [address] Glenn Gudino M.D. [id number] RETIC HGB EQUIVALENT 30.4 PG Normal 27.7-38.2 [facility] Comment on above: Result Comment: The cut-off for RET-He established in our institution is 27.7-38.2 pg/RBC. A value below this range is highly suggestive of iron deficiency. At values above 38.2 pg/RBC, patients are unlikely to respond to additional iron therapy. Performed By: #### 4 6452 ####[facility] [address] [place], [place] [address] Glenn Gudino M.D. [id number] RETICULOCYTE ABSOLUTE COUNT 0.088 M/mcL High 0.025-0.07 0 [facility] Comment on above: Performed By: #### 4 6452 ####[facility] [address] [place] [address] Glenn Gudino M.D. [id number] RETICULOCYTE COUNT PCT 3.6 % Normal Ri [facility] Comment on above: Performed By: #### 4 6452 ####[facility] [address] [place] [address] Glenn Gudino M.D. [id number] TYPE AND SCREENon 03-12-2024 TYPE AND SCREEN ABORH: O Positive AB SCREEN: Positive EXPIRATION DATE: 03/15/2024 23:59 EST Normal [facility] Comment on above: Performed By: #### 4 6619 ####[facility] [address] [place] [address] Nurys Oneill MD [id number] RMHTS URIC ACIDon 03-12-2024 Urate [Mass/Vol] 3.2 mg/dL Normal 2.4-7.0 [facility] Comment on above: Performed By: #### 4 6629 ####[facility] [address] [place], [place] [address] Glenn Gudino M.D. [id number] US DOPPLER SEGMENTAL ARTERIA L LEGS BILATERALon 03-12-2024 US DOPPLER SEGMENTAL ARTERIAL LEGS BILATERAL Normal [facility] XR CHEST PA/APon 03-12-2024 XR CHEST PA/AP Normal [facility] Comment on above: Order Comment: Injur y/Trauma or Illness?:Illness/OtherHow long have you had these symptoms (acute/chronic)?:UnknownReason for exam?:recheck pleural effusionsHistory of cancer?:uSurgeries, chemotherapy, or radiation?:uType of Exam?:UnknownAdditional signs and symptoms?:. Abdomen/Pelvis without Conto n 03-11-2024 Abdomen/Pelvis without Cont Normal [facility] Basic Metabolic Profile (BMP )on 03-11-2024 BUN/CRE 6.6 RATIO Low 03-17 [facility] Comment on above: Performed By: #### L 100.0100, L500.2500 ####[facility] [address] [place], [address] CA,Total 8.5 mg/dL Normal 8.5-10.1 [facility] Comment on above: Performed By: #### L 100.0100, L500.2500 ####[facility] [address] [place], [address] Chloride [Moles/Vol] 98 mmol/L Normal 98-107 [facility] Comment on above: Performed By: #### L 100.0100, L500.2500 ####[facility] [address] [place], [address] CO2 [Moles/Vol] 31.0 mmol/L Normal 21.0-32.0 [facility] Comment on above: Performed By: #### L 100.0100, L500.2500 ####[facility] [address] [place], [address] Creatinine [Mass/Vol] 1.37 mg/dL High 0.55-1.02 [facility] Comment on above: Result Comment: The validity of the calculated GFR GFRAA in patients over70 years has not been determined. Clinical correlation isessential. Performed By: #### L 100.0100, L500.2500 ####[facility] [address] [place], [address] ECRCL 39.14 ml/min Normal [facility] Comment on above: Performed By: #### L 100.0100, L500.2500 ####[facility] [address] [place], [address] EST GFR - AA 50 mL/min Low >60 [facility] Comment on above: Result Comment: Afri can Singaporean GFR Calc Performed By: #### L 100.0100, L500.2500 ####[facility] [address] [place], [address] GAP 5 Normal 5-15 [facility] Comment on above: Performed By: #### L 100.0100, L500.2500 ####[facility] [address] [place], [address] GFR/1.73 sq M.predicted among non-blacks MDRD (S/P/Bld) [Vol rate/Area] 42 mL/min/{1.73_m2} Low >60 [facility] Comment on above: Result Comment: Non- GFR Calc Performed By: #### L 100.0100, L500.2500 ####[facility] [address] [place], [address] Glucose [Mass/Vol] 62 mg/dL Low 74-106 [facility] Comment on above: Performed By: #### L 100.0100, L500.2500 ####[facility] [address] [place], [address] Potassium [Moles/Vol] 3.7 mmol/L Normal 3.5-5.1 [facility] Comment on above: Performed By: #### L 100.0100, L500.2500 ####[facility] [address] [place], [address] Sodium [Moles/Vol] 135 mmol/L Low 136-145 [facility] Comment on above: Performed By: #### L 100.0100, L500.2500 ####[facility] [address] [place], [address] Urea nitrogen [Mass/Vol] 9 mg/dL Normal 7-18 [facility] Comment on above: Performed By: #### L 100.0100, L500.2500 ####[facility] [address] [place], [address] Emergency Department Summary on 03-11-2024 Emergency Department Summary Normal [facility] Foot min 3 Viewson 4 Foot min 3 Views Normal [facility] CBC-Complete Blood Cnt No Geri de la cruz 02-29-2024 Erythrocyte distribution width (RBC) [Ratio] 17.3 % High 11.6-14.6 [facility] Comment on above: Performed By: #### L 500.4050, L100.0500 ####[facility] [address] [place], [address] Hematocrit (Bld) [Volume fraction] 23.2 % Low 37-47 [facility] Comment on above: Performed By: #### L 500.4050, L100.0500 ####[facility] [address] [place], [address] Hemoglobin (Bld) [Mass/Vol] 7.1 g/dL Low 12.0-15.0 [facility] Comment on above: Performed By: #### L 500.4050, L100.0500 ####[facility] [address] [place], [address] MCH (RBC) [Entitic mass] 28.4 pg Normal 27.0-32.0 [facility] Comment on above: Performed By: #### L 500.4050, L100.0500 ####[facility] [address] [place], [address] MCHC (RBC) [Mass/Vol] 30.6 g/dL Low 32-36 [facility] Comment on above: Performed By: #### L 500.4050, L100.0500 ####[facility] [address] [place], [address] MCV (RBC) [Entitic vol] 92.8 fL Normal 81-99 [facility] Comment on above: Performed By: #### L 500.4050, L100.0500 ####[facility] [address], [address] Platelet mean volume (Bld) [Entitic vol] 9.8 fL Normal 6.2-12.0 [facility] Comment on above: Performed By: #### L 500.4050, L100.0500 ####[facility] [address] [place], [address] Platelets (Bld) [#/Vol] 207 10*3/uL Normal 150-450 [facility] Comment on above: Performed By: #### L 500.4050, L100.0500 ####[facility] [address] [place], [address] RBC (Bld) [#/Vol] 2.50 10*6/uL Low 4.2-5.4 [facility] Comment on above: Performed By: #### L 500.4050, L100.0500 ####[facility] [address] [place], [address] RDW SD 57.8 fl High 35.1-43.9 [facility] Comment on above: Performed By: #### L 500.4050, L100.0500 ####[facility] [address] [place], [address] WBC (Bld) [#/Vol] 4.3 10*3/uL Low 4.4-11.0 [facility] Comment on above: Performed By: #### L 500.4050, L100.0500 ####[facility] [address] [place], [address] Comprehensive Metabolic [facility] ilon 02-29-2024 Albumin [Mass/Vol] 2.1 g/dL Low 3.2-5.0 [facility] Comment on above: Performed By: #### L 500.4050, L100.0500 ####[facility] [address] [place], [address] Albumin/Globulin [Mass ratio] 0.6 {ratio} Low 0.9-2.4 [facility] Comment on above: Performed By: #### L 500.4050, L100.0500 ####[facility] [address] [place], [address] ALK P 49 U/L Normal 45-117 [facility] Comment on above: Performed By: #### L 500.4050, L100.0500 ####[facility] [address] [place], [address] ALT [Catalytic activity/Vol] 7 U/L Low 13-56 [facility] Comment on above: Performed By: #### L 500.4050, L100.0500 ####[facility] [address] [place], [address] AST [Catalytic activity/Vol] 24 U/L Normal 15-37 [facility] Comment on above: Performed By: #### L 500.4050, L100.0500 ####[facility] [address] [place], [address] Bilirubin [Mass/Vol] 0.50 mg/dL Normal 0.20-1.00 [facility] Comment on above: Result Comment: For patients on eltrombopag therapy, use of Dimension [place] TBIL is not recommended. Performed By: #### L 500.4050, L100.0500 ####[facility] [address] [place], [address] BUN/CRE 7.8 RATIO Low 10-20 [facility] Comment on above: Performed By: #### L 500.4050, L100.0500 ####[facility] [address] [place], [address] CA,Total 7.8 mg/dL Low 8.5-10.1 [facility] Comment on above: Performed By: #### L 500.4050, L100.0500 ####[facility] [address] [place], [address] Chloride [Moles/Vol] 97 mmol/L Low 98-107 [facility] Comment on above: Performed By: #### L 500.4050, L100.0500 ####[facility] [address] [place], [address] CO2 [Moles/Vol] 34.0 mmol/L High 21.0-32.0 [facility] Comment on above: Performed By: #### L 500.4050, L100.0500 ####[facility] [address] [place], [address] Creatinine [Mass/Vol] 1.79 mg/dL High 0.55-1.02 [facility] Comment on above: Result Comment: The validity of the calculated GFR GFRAA in patients over70 years has not been determined. Clinical correlation isessential. Performed By: #### L 500.4050, L100.0500 ####[facility] [address] [place], [address] EST GFR - AA 37 mL/min Low >60 [facility] Comment on above: Result Comment: Afri can Singaporean GFR Calc Performed By: #### L 500.4050, L100.0500 ####[facility] [address] [place], [address] GAP 4 Low 5-15 [facility] Comment on above: Performed By: #### L 500.4050, L100.0500 ####[facility] [address] [place], [address] GFR/1.73 sq M.predicted among non-blacks MDRD (S/P/Bld) [Vol rate/Area] 31 mL/min/{1.73_m2} Low >60 [facility] Comment on above: Result Comment: Non- GFR Calc Performed By: #### L 500.4050, L100.0500 ####[facility] [address] [place], [address] Globulin (S) [Mass/Vol] 3.8 g/dL Normal 2.2-4.2 [facility] Comment on above: Performed By: #### L 500.4050, L100.0500 ####[facility] [address] [place], [address] Glucose [Mass/Vol] 90 mg/dL Normal 74-106 [facility] Comment on above: Performed By: #### L 500.4050, L100.0500 ####[facility] [address] [place], [address] Potassium [Moles/Vol] 2.6 mmol/L Invalid Interpretation Code 3.5-5.1 [facility] Comment on above: Result Comment: Crit ical Result(s) Called at: 11:16:28 02/29/2024 by: Jamee [place]. Results read back by same. Performed By: #### L 500.4050, L100.0500 ####[facility] [address] [place], [address] Sodium [Moles/Vol] 135 mmol/L Low 136-145 [facility] Comment on above: Performed By: #### L 500.4050, L100.0500 ####[facility] [address] [place], [address] T PROT 5.9 g/dL Low 6.4-8.2 [facility] Comment on above: Performed By: #### L 500.4050, L100.0500 ####[facility] [address] [place], [address] Urea nitrogen [Mass/Vol] 14 mg/dL Normal 7-18 [facility] Comment on above: Performed By: #### L 500.4050, L100.0500 ####[facility] [address] [place], [address] CALCIUM, IONIZEDon 09-29-202 4 CALCIUM IONIZED 4.3 mg/dL Low 4.5-5.3 [facility] Comment on above: Order Comment: Serum , non-CRRT source. Performed By: #### 4 5190 ####[facility] [address] [place] [address] Glenn Gudino M.D. [id number] CBCon 02-25-2024 AUTO NRBC 0.0 % Normal [facility] Comment on above: Performed By: #### 4 [id number] ####[facility] [address] [place] [address] Glenn Gudino M.D. [id number] AUTO NRBC ABS COUNT 0.00 K/mcL Normal 0.00-0.00 [facility] Comment on above: Performed By: #### 4 [id number] ####[facility] [address] [place], [place] [address] Glenn Gudino M.D. [id number] Erythrocyte distribution width (RBC) [Ratio] 17.2 % High 11.6-14.8 [facility] Comment on above: Performed By: #### 4 [id number] ####[facility] [address] [place], [place] [address] Glenn Gudino M.D. [id number] Hematocrit (Bld) [Volume fraction] 24.5 % Low 36.0-46.0 [facility] Comment on above: Performed By: #### 4 [id number] ####[facility] [address] [place], [place] [address] Glenn Gudino M.D. [id number] Hemoglobin (Bld) [Mass/Vol] 7.6 g/dL Low 12.0-16.0 [facility] Comment on above: Performed By: #### 4 [id number] ####[facility] [address] [place], [place] [address] Glenn Gudino M.D. [id number] MCH (RBC) [Entitic mass] 28.6 pg Normal 26.0-34.0 [facility] Comment on above: Performed By: #### 4 [id number] ####[facility] [address] [place] [address] Glenn Gudino M.D. [id number] MCV (RBC) [Entitic vol] 92.1 fL Normal 80.0-100.0 [facility] Comment on above: Performed By: #### 4 [id number] ####[facility] [address] [place] [address] Glenn Gudino M.D. [id number] MEAN CORPUSCULAR HEMOGLOBIN CONC 31.0 g/dL Normal 31.0-37.0 [facility] Comment on above: Performed By: #### 4 [id number] ####[facility] [address] [place] [address] Glenn Gudino M.D. [id number] Platelet mean volume (Bld) [Entitic vol] 9.4 fL Normal 9.4-12.4 [facility] Comment on above: Performed By: #### 4 [id number] ####[facility] [address] [place], [place] [address] Glenn Gudino M.D. [id number] Platelets (Bld) [#/Vol] 215 10*3/uL Normal 150-400 [facility] Comment on above: Performed By: #### 4 5218 ####[facility] [address] [place], [place] [address] Glenn Gudino M.D. [id number] RBC (Bld) [#/Vol] 2.66 10*6/uL Low 4.00-5.20 [facility] Comment on above: Performed By: #### 4 5218 ####[facility] [address] [place], [place] [address] Glenn Gudino M.D. [id number] WBC (Bld) [#/Vol] 6.32 10*3/uL Normal 4.50-11.00 [facility] Comment on above: Performed By: #### 4 [id number] ####[facility] [address] [place] [address] Glenn Gudino M.D. [id number] Disch Summon 02-25-2024 Disch Summ Normal [facility] MAGNESIUM LEVELon 02-25-2024 Magnesium [Mass/Vol] 2.0 mg/dL Normal 1.6-2.4 [facility] Comment on above: Performed By: #### 4 6109 ####[facility] [address] [place] [address] Glenn Gudino M.D. [id number] RENAL FUNCTION PANELon 02-24 Albumin [Mass/Vol] 2.6 g/dL Low 3.2-5.2 [facility] Comment on above: Order Comment: [facility] has implemented the eGFR calculation approach that does not have a coefficient for race that conforms to the NKF-ASN Task Force Recommendations. Performed By: #### 4 6449 ####[facility] [address] [place] [address] Glenn Gudino M.D. [id number] Anion gap [Moles/Vol] 16 mmol/L Normal 10-20 [facility] Comment on above: Order Comment: [facility] has implemented the eGFR calculation approach that does not have a coefficient for race that conforms to the NKF-ASN Task Force Recommendations. Performed By: #### 4 6449 ####[facility] [address] [place] [address] Glenn Gudino M.D. [id number] Calcium [Mass/Vol] 7.7 mg/dL Low 8.4-10.2 [facility] Comment on above: Order Comment: [facility] has implemented the eGFR calculation approach that does not have a coefficient for race that conforms to the NKF-ASN Task Force Recommendations. Performed By: #### 4 6449 ####[facility] [address] [place] [address] Glenn Gudino M.D. [id number] Chloride [Moles/Vol] 95 mmol/L Low 98-108 [facility] Comment on above: Order Comment: [facility] has implemented the eGFR calculation approach that does not have a coefficient for race that conforms to the NKF-ASN Task Force Recommendations. Performed By: #### 4 6449 ####[facility] [address] [place] [address] Glenn Gudino M.D. [id number] Creatinine [Mass/Vol] 2.62 mg/dL High 0.60-1.10 [facility] Comment on above: Order Comment: [facility] has implemented the eGFR calculation approach that does not have a coefficient for race that conforms to the NKF-ASN Task Force Recommendations. Performed By: #### 4 6449 ####[facility] [address] [place] [address] Glenn Gudino M.D. [id number] EGFR 20 mL/min/1.73 m2 Low >=60 [facility] Comment on above: Order Comment: [facility] has implemented the eGFR calculation approach that does not have a coefficient for race that conforms to the NKF-ASN Task Force Recommendations. Result Comment: Joi mated GFR was calculated using the 2020 CKD-EPI creatinine equation. Performed By: #### 4 6449 ####[facility] [address] [place] [address] Glenn Gudino M.D. [id number] Glucose [Mass/Vol] 93 mg/dL Normal 65-99 [facility] Comment on above: Order Comment: [facility] has implemented the eGFR calculation approach that does not have a coefficient for race that conforms to the NKF-ASN Task Force Recommendations. Performed By: #### 4 6449 ####[facility] [address] [place] [address] Glenn Gudino M.D. [id number] HCO3 (Bld) [Moles/Vol] 25 mmol/L Normal 21-32 [facility] Comment on above: Order Comment: [facility] has implemented the eGFR calculation approach that does not have a coefficient for race that conforms to the NKF-ASN Task Force Recommendations. Performed By: #### 4 6449 ####[facility] [address] [place], [place] [address] Glenn Gudino M.D. [id number] Phosphate [Mass/Vol] 4.0 mg/dL Normal 2.8-4.1 [facility] Comment on above: Order Comment: [facility] has implemented the eGFR calculation approach that does not have a coefficient for race that conforms to the NKF-ASN Task Force Recommendations. Performed By: #### 4 6449 ####[facility] [address] [place], [place] [address] Glenn Gudino M.D. [id number] Potassium [Moles/Vol] 3.8 mmol/L Normal 3.5-5.1 [facility] Comment on above: Order Comment: [facility] has implemented the eGFR calculation approach that does not have a coefficient for race that conforms to the NKF-ASN Task Force Recommendations. Performed By: #### 4 6449 ####[facility] [address] [place], [place] [address] Glenn Gudino M.D. [id number] Sodium [Moles/Vol] 132 mmol/L Low 135-145 [facility] Comment on above: Order Comment: [facility] has implemented the eGFR calculation approach that does not have a coefficient for race that conforms to the NKF-ASN Task Force Recommendations. Performed By: #### 4 6449 ####[facility] [address] [place], [place] [address] Glenn Gudino M.D. [id number] Urea nitrogen [Mass/Vol] 26 mg/dL High 8-25 [facility] Comment on above: Order Comment: [facility] has implemented the eGFR calculation approach that does not have a coefficient for race that conforms to the NKF-ASN Task Force Recommendations. Performed By: #### 4 6449 ####[facility] [address] [place] [address] Glenn Gudino M.D. [id number] Urea nitrogen/Creatinine [Mass ratio] 9.9 mg/mg Low 10.0-20.0 [facility] Comment on above: Order Comment: [facility] has implemented the eGFR calculation approach that does not have a coefficient for race that conforms to the NKF-ASN Task Force Recommendations. Performed By: #### 4 6449 ####[facility] [address] [place], [place] [address] Glenn Gudino M.D. [id number] CALCIUM, IONIZEDon CALCIUM IONIZED 4.2 mg/dL Low 4.5-5.3 [facility] Comment on above: Order Comment: Serum , non-CRRT source. Performed By: #### 4 5190 ####[facility] [address] [place], [place] [address] Glenn Gudino M.D. [id number] CBCon 02-24-2024 AUTO NRBC 0.0 % Normal [facility] Comment on above: Performed By: #### 4 [id number] ####[facility] [address] [place] [address] Glenn Gudino M.D. [id number] AUTO NRBC ABS COUNT 0.00 K/mcL Normal 0.00-0.00 [facility] Comment on above: Performed By: #### 4 [id number] ####[facility] [address] [place], [place] [address] Glenn Gudino M.D. [id number] Erythrocyte distribution width (RBC) [Ratio] 17.3 % High 11.6-14.8 [facility] Comment on above: Performed By: #### 4 [id number] ####[facility] [address] [place], [place] [address] Glenn Gudino M.D. [id number] Hematocrit (Bld) [Volume fraction] 24.7 % Low 36.0-46.0 [facility] Comment on above: Performed By: #### 4 [id number] ####[facility] [address] [place] [address] Gelnn Gudino M.D. [id number] Hemoglobin (Bld) [Mass/Vol] 7.7 g/dL Low 12.0-16.0 [facility] Comment on above: Performed By: #### 4 [id number] ####[facility] [address] [place] [address] Glenn Gudino M.D. [id number] MCH (RBC) [Entitic mass] 29.2 pg Normal 26.0-34.0 [facility] Comment on above: Performed By: #### 4 [id number] ####[facility] [address] [place], [place] [address] Glenn Gudino M.D. [id number] MCV (RBC) [Entitic vol] 93.6 fL Normal 80.0-100.0 [facility] Comment on above: Performed By: #### 4 [id number] ####[facility] [address] [place], [place] [address] Glenn Gudino M.D. [id number] MEAN CORPUSCULAR HEMOGLOBIN CONC 31.2 g/dL Normal 31.0-37.0 [facility] Comment on above: Performed By: #### 4 5234 ####[facility] [address] [place], [place] [address] Glenn Gudino M.D. [id number] Platelet mean volume (Bld) [Entitic vol] 9.7 fL Normal 9.4-12.4 [facility] Comment on above: Performed By: #### 4 [id number] ####[facility] [address] [place] [address] Glenn Gudino M.D. [id number] Platelets (Bld) [#/Vol] 222 10*3/uL Normal 150-400 [facility] Comment on above: Performed By: #### 4 [id number] ####[facility] [address] [place] [address] Glenn Gudino M.D. [id number] RBC (Bld) [#/Vol] 2.64 10*6/uL Low 4.00-5.20 [facility] Comment on above: Performed By: #### 4 [id number] ####[facility] [address] [place] [address] Glenn Gudino M.D. [id number] WBC (Bld) [#/Vol] 6.53 10*3/uL Normal 4.50-11.00 [facility] Comment on above: Performed By: #### 4 5218 ####[facility] [address] [place] [address]2385 Glenn Gudino M.D. [id number] MAGNESIUM LEVELon 02-24-2024 Magnesium [Mass/Vol] 1.5 mg/dL Low 1.6-2.4 [facility] Comment on above: Performed By: #### 4 6109 ####[facility] [address] [place] [address] Glenn Gudino M.D. [id number] RENAL FUNCTION PANELon 02-23 Albumin [Mass/Vol] 2.5 g/dL Low 3.2-5.2 [facility] Comment on above: Order Comment: [facility] has implemented the eGFR calculation approach that does not have a coefficient for race that conforms to the NKF-ASN Task Force Recommendations. Performed By: #### 4 6449 ####[facility] [address] [place] [address] Glenn Gudino M.D. [id number] Anion gap [Moles/Vol] 12 mmol/L Normal 10-20 [facility] Comment on above: Order Comment: [facility] has implemented the eGFR calculation approach that does not have a coefficient for race that conforms to the NKF-ASN Task Force Recommendations. Performed By: #### 4 6449 ####[facility] [address] [place] [address] Glenn Gudino M.D. [id number] Calcium [Mass/Vol] 7.4 mg/dL Low 8.4-10.2 [facility] Comment on above: Order Comment: [facility] has implemented the eGFR calculation approach that does not have a coefficient for race that conforms to the NKF-ASN Task Force Recommendations. Performed By: #### 4 6449 ####[facility] [address] [place] [address] Glenn Gudino M.D. [id number] Chloride [Moles/Vol] 96 mmol/L Low 98-108 [facility] Comment on above: Order Comment: [facility] has implemented the eGFR calculation approach that does not have a coefficient for race that conforms to the NKF-ASN Task Force Recommendations. Performed By: #### 4 6449 ####[facility] [address] [place] [address] Glenn Gudino M.D. [id number] Creatinine [Mass/Vol] 1.90 mg/dL High 0.60-1.10 [facility] Comment on above: Order Comment: [facility] has implemented the eGFR calculation approach that does not have a coefficient for race that conforms to the NKF-ASN Task Force Recommendations. Performed By: #### 4 6449 ####[facility] [address] [place], [place] [address] Glenn Gudino M.D. [id number] EGFR 30 mL/min/1.73 m2 Low >=60 [facility] Comment on above: Order Comment: [facility] has implemented the eGFR calculation approach that does not have a coefficient for race that conforms to the NKF-ASN Task Force Recommendations. Result Comment: Joi mated GFR was calculated using the 2020 CKD-EPI creatinine equation. Performed By: #### 4 6449 ####[facility] [address] [place], [place] [address] Glenn Gudino M.D. [id number] Glucose [Mass/Vol] 87 mg/dL Normal 65-99 [facility] Comment on above: Order Comment: [facility] has implemented the eGFR calculation approach that does not have a coefficient for race that conforms to the NKF-ASN Task Force Recommendations. Performed By: #### 4 6449 ####[facility] [address] [place], [place] [address] Glenn Gudino M.D. [id number] HCO3 (Bld) [Moles/Vol] 29 mmol/L Normal 21-32 [facility] Comment on above: Order Comment: [facility] has implemented the eGFR calculation approach that does not have a coefficient for race that conforms to the NKF-ASN Task Force Recommendations. Performed By: #### 4 6449 ####[facility] [address] [place], [place] [address] Glenn Gudino M.D. [id number] Phosphate [Mass/Vol] 3.0 mg/dL Normal 2.8-4.1 [facility] Comment on above: Order Comment: [facility] has implemented the eGFR calculation approach that does not have a coefficient for race that conforms to the NKF-ASN Task Force Recommendations. Performed By: #### 4 6449 ####[facility] [address] [place], [place] [address] Glenn Gudino M.D. [id number] Potassium [Moles/Vol] 3.6 mmol/L Normal 3.5-5.1 [facility] Comment on above: Order Comment: [facility] has implemented the eGFR calculation approach that does not have a coefficient for race that conforms to the NKF-ASN Task Force Recommendations. Performed By: #### 4 6449 ####[facility] [address] [place], [place] [address] Glenn Gudino M.D. [id number] Sodium [Moles/Vol] 133 mmol/L Low 135-145 [facility] Comment on above: Order Comment: [facility] has implemented the eGFR calculation approach that does not have a coefficient for race that conforms to the NKF-ASN Task Force Recommendations. Performed By: #### 4 6449 ####[facility] [address] [place], [place] [address] Glenn Gudino M.D. [id number] Urea nitrogen [Mass/Vol] 19 mg/dL Normal 8-25 [facility] Comment on above: Order Comment: [facility] has implemented the eGFR calculation approach that does not have a coefficient for race that conforms to the NKF-ASN Task Force Recommendations. Performed By: #### 4 6449 ####[facility] [address] [place] [address]199 Glenn Gudino M.D. [id number] Urea nitrogen/Creatinine [Mass ratio] 10.0 mg/mg Normal 10.0-20.0 [facility] Comment on above: Order Comment: [facility] has implemented the eGFR calculation approach that does not have a coefficient for race that conforms to the NKF-ASN Task Force Recommendations. Performed By: #### 4 6449 ####[facility] [address] [place], [place] [address] Glenn Gudino M.D. [id number] CALCIUM, IONIZEDon 4 CALCIUM IONIZED 4.4 mg/dL Low 4.5-5.3 [facility] Comment on above: Order Comment: Serum , non-CRRT source. Performed By: #### 4 5190 ####[facility] [address] [place], [place] [address] Glenn Gudino M.D. [id number] CBCon 02-23-2024 AUTO NRBC 0.0 % Normal [facility] Comment on above: Performed By: #### 4 [id number] ####[facility] [address] [place] [address] Glenn Gudino M.D. [id number] AUTO NRBC ABS COUNT 0.00 K/mcL Normal 0.00-0.00 [facility] Comment on above: Performed By: #### 4 [id number] ####[facility] [address] [place], [place] [address] Glenn Gudino M.D. [id number] Erythrocyte distribution width (RBC) [Ratio] 17.9 % High 11.6-14.8 [facility] Comment on above: Performed By: #### 4 [id number] ####[facility] [address] [place], [place] [address] Glenn Gudino M.D. [id number] Hematocrit (Bld) [Volume fraction] 26.1 % Low 36.0-46.0 [facility] Comment on above: Performed By: #### 4 [id number] ####[facility] [address] [place], [place] [address] Glenn Gudino M.D. [id number] Hemoglobin (Bld) [Mass/Vol] 8.1 g/dL Low 12.0-16.0 [facility] Comment on above: Performed By: #### 4 [id number] ####[facility] [address] [place], [place] [address] Glenn Gudino M.D. [id number] MCH (RBC) [Entitic mass] 28.9 pg Normal 26.0-34.0 [facility] Comment on above: Performed By: #### 4 [id number] ####[facility] [address] [place] [address] Glenn Gudino M.D. [id number] MCV (RBC) [Entitic vol] 93.2 fL Normal 80.0-100.0 [facility] Comment on above: Performed By: #### 4 [id number] ####[facility] [address] [place], [place] [address] Glenn Gudino M.D. [id number] MEAN CORPUSCULAR HEMOGLOBIN CONC 31.0 g/dL Normal 31.0-37.0 [facility] Comment on above: Performed By: #### 4 [id number] ####[facility] [address] [place], [place] [address] Glenn Gudino M.D. [id number] Platelet mean volume (Bld) [Entitic vol] 9.5 fL Normal 9.4-12.4 [facility] Comment on above: Performed By: #### 4 [id number] ####[facility] [address] [place] [address]01 Glenn Gudino M.D. [id number] Platelets (Bld) [#/Vol] 232 10*3/uL Normal 150-400 [facility] Comment on above: Performed By: #### 4 [id number] ####[facility] [address] [place], [place] [address] Glenn Gudino M.D. [id number] RBC (Bld) [#/Vol] 2.80 10*6/uL Low 4.00-5.20 [facility] Comment on above: Performed By: #### 4 [id number] ####[facility] [address] [place], [place] [address] Glenn Gudino M.D. [id number] WBC (Bld) [#/Vol] 8.31 10*3/uL Normal 4.50-11.00 [facility] Comment on above: Performed By: #### 4 [id number] ####[facility] [address] [place], [place] [address] Glenn Gudino M.D. [id number] CONSULTon 02-23-2024 CONSULT Normal [facility] MAGNESIUM LEVELon 02-23-2024 Magnesium [Mass/Vol] 1.7 mg/dL Normal 1.6-2.4 [facility] Comment on above: Performed By: #### 4 6109 ####[facility] [address] [place], [place] [address] Glenn Gudino M.D. [id number] RENAL FUNCTION PANELon 02-22 Albumin [Mass/Vol] 2.3 g/dL Low 3.2-5.2 [facility] Comment on above: Order Comment: [facility] has implemented the eGFR calculation approach that does not have a coefficient for race that conforms to the NKF-ASN Task Force Recommendations. Performed By: #### 4 6449 ####[facility] [address] [place] [address]42 Glenn Gudino M.D. [id number] Anion gap [Moles/Vol] 13 mmol/L Normal 10-20 [facility] Comment on above: Order Comment: [facility] has implemented the eGFR calculation approach that does not have a coefficient for race that conforms to the NKF-ASN Task Force Recommendations. Performed By: #### 4 6449 ####[facility] [address] [place] [address] 71110 Glenn Gudino M.D. [id number] Calcium [Mass/Vol] 7.5 mg/dL Low 8.4-10.2 [facility] Comment on above: Order Comment: [facility] has implemented the eGFR calculation approach that does not have a coefficient for race that conforms to the NKF-ASN Task Force Recommendations. Performed By: #### 4 6449 ####[facility] [address] [place], [place] [address] Glenn Gudino M.D. [id number] Chloride [Moles/Vol] 98 mmol/L Normal 98-108 [facility] [facility] Comment on above: Order Comment: [facility] has implemented the eGFR calculation approach that does not have a coefficient for race that conforms to the NKF-ASN Task Force Recommendations. Performed By: #### 4 6449 ####[facility] [address] [place], [place] [address] Glenn Gudino M.D. [id number] Creatinine [Mass/Vol] 2.25 mg/dL High 0.60-1.10 [facility] Comment on above: Order Comment: [facility] has implemented the eGFR calculation approach that does not have a coefficient for race that conforms to the NKF-ASN Task Force Recommendations. Performed By: #### 4 6449 ####[facility] [address] [place], [place] [address] Glenn Gudino M.D. [id number] EGFR 24 mL/min/1.73 m2 Low >=60 [facility] Comment on above: Order Comment: [facility] has implemented the eGFR calculation approach that does not have a coefficient for race that conforms to the NKF-ASN Task Force Recommendations. Result Comment: Joi mated GFR was calculated using the 2020 CKD-EPI creatinine equation. Performed By: #### 4 6449 ####[facility] [address] [place], [place] [address] Glenn Gudino M.D. [id number] Glucose [Mass/Vol] 114 mg/dL High 65-99 [facility] Comment on above: Order Comment: [facility] has implemented the eGFR calculation approach that does not have a coefficient for race that conforms to the NKF-ASN Task Force Recommendations. Performed By: #### 4 6449 ####[facility] [address] [place] [address] Glenn Gudino M.D. [id number] HCO3 (Bld) [Moles/Vol] 27 mmol/L Normal 21-32 [facility] Comment on above: Order Comment: [facility] has implemented the eGFR calculation approach that does not have a coefficient for race that conforms to the NKF-ASN Task Force Recommendations. Performed By: #### 4 6449 ####[facility] [address] [place] [address] Glenn Gudino M.D. [id number] Phosphate [Mass/Vol] 3.9 mg/dL Normal 2.8-4.1 [facility] Comment on above: Order Comment: [facility] has implemented the eGFR calculation approach that does not have a coefficient for race that conforms to the NKF-ASN Task Force Recommendations. Performed By: #### 4 6449 ####[facility] [address] [place] [address] Glenn Gudino M.D. [id number] Potassium [Moles/Vol] 3.6 mmol/L Normal 3.5-5.1 [facility] Comment on above: Order Comment: [facility] has implemented the eGFR calculation approach that does not have a coefficient for race that conforms to the NKF-ASN Task Force Recommendations. Performed By: #### 4 6449 ####[facility] [address] [place], [place] [address] Glenn Gudino M.D. [id number] Sodium [Moles/Vol] 134 mmol/L Low 135-145 [facility] Comment on above: Order Comment: [facility] has implemented the eGFR calculation approach that does not have a coefficient for race that conforms to the NKF-ASN Task Force Recommendations. Performed By: #### 4 6449 ####[facility] [address] [place], [place] [address] Glenn Gudino M.D. [id number] Urea nitrogen [Mass/Vol] 26 mg/dL High 8-25 [facility] Comment on above: Order Comment: [facility] has implemented the eGFR calculation approach that does not have a coefficient for race that conforms to the NKF-ASN Task Force Recommendations. Performed By: #### 4 6449 ####[facility] [address] [place], [place] [address] Glenn Gudino M.D. [id number] Urea nitrogen/Creatinine [Mass ratio] 11.6 mg/mg Normal 10.0-20.0 [facility] Comment on above: Order Comment: [facility] has implemented the eGFR calculation approach that does not have a coefficient for race that conforms to the NKF-ASN Task Force Recommendations. Performed By: #### 4 6449 ####[facility] [address] [place] [address] Glenn Gudino M.D. [id number] CALCIUM, IONIZEDon CALCIUM IONIZED 4.3 mg/dL Low 4.5-5.3 [facility] Comment on above: Order Comment: Serum , non-CRRT source. Performed By: #### 4 5190 ####[facility] [address] [place], [place] [address] Glenn Gudino M.D. [id number] CBCon 02-22-2024 AUTO NRBC 0.0 % Normal [facility] Comment on above: Performed By: #### 4 [id number] ####[facility] [address] [place], [place] [address] Glenn Gudino M.D. [id number] AUTO NRBC ABS COUNT 0.00 K/mcL Normal 0.00-0.00 [facility] Comment on above: Performed By: #### 4 [id number] ####[facility] [address] [place], [place] [address] Glenn Gudino M.D. [id number] Erythrocyte distribution width (RBC) [Ratio] 18.2 % High 11.6-14.8 [facility] Comment on above: Performed By: #### 4 [id number] ####[facility] [address] [place], [place] [address] Glenn Gudino M.D. [id number] Hematocrit (Bld) [Volume fraction] 25.0 % Low 36.0-46.0 [facility] Comment on above: Performed By: #### 4 [id number] ####[facility] [address] [place] [address] Glenn Gudino M.D. [id number] Hemoglobin (Bld) [Mass/Vol] 7.9 g/dL Low 12.0-16.0 [facility] Comment on above: Performed By: #### 4 [id number] ####[facility] [address] [place] [address] Glenn Gudino M.D. [id number] MCH (RBC) [Entitic mass] 29.4 pg Normal 26.0-34.0 [facility] Comment on above: Performed By: #### 4 [id number] ####[facility] [address] [place], [place] [address] Glenn Gudino M.D. [id number] MCV (RBC) [Entitic vol] 92.9 fL Normal 80.0-100.0 [facility] Comment on above: Performed By: #### 4 [id number] ####[facility] [address] [place], [place] [address] Glenn Gudino M.D. [id number] MEAN CORPUSCULAR HEMOGLOBIN CONC 31.6 g/dL Normal 31.0-37.0 [facility] Comment on above: Performed By: #### 4 [id number] ####[facility] [address] [place], [place] [address] Glenn Gudino M.D. [id number] Platelet mean volume (Bld) [Entitic vol] 9.4 fL Normal 9.4-12.4 [facility] Comment on above: Performed By: #### 4 [id number] ####[facility] [address] [place] [address] Glenn Gudino M.D. [id number] Platelets (Bld) [#/Vol] 223 10*3/uL Normal 150-400 [facility] Comment on above: Performed By: #### 4 [id number] ####[facility] [address] [place] [address] Glenn Gudino M.D. [id number] RBC (Bld) [#/Vol] 2.69 10*6/uL Low 4.00-5.20 [facility] Comment on above: Performed By: #### 4 [id number] ####[facility] [address] [place], [place] [address] Glenn Gudino M.D. [id number] WBC (Bld) [#/Vol] 15.60 10*3/uL High 4.50-11.00 [facility] Comment on above: Performed By: #### 4 [id number] ####[facility] [address] [place] [address] Glenn Gudino M.D. [id number] MAGNESIUM LEVELon 02-22-2024 Magnesium [Mass/Vol] 1.7 mg/dL Normal 1.6-2.4 [facility] Comment on above: Performed By: #### 4 6109 ####[facility] [address] [place] [address] Glenn Gudino M.D. [id number] RENAL FUNCTION PANELon 02-21 Albumin [Mass/Vol] 2.4 g/dL Low 3.2-5.2 [facility] Comment on above: Order Comment: [facility] has implemented the eGFR calculation approach that does not have a coefficient for race that conforms to the NKF-ASN Task Force Recommendations. Performed By: #### 4 6449 ####[facility] [address] [place] [address] Glenn Gudino M.D. [id number] Anion gap [Moles/Vol] 13 mmol/L Normal 10-20 [facility] Comment on above: Order Comment: [facility] has implemented the eGFR calculation approach that does not have a coefficient for race that conforms to the NKF-ASN Task Force Recommendations. Performed By: #### 4 6449 ####[facility] [address] [place], [place] [address] Glenn Gudino M.D. [id number] Calcium [Mass/Vol] 7.2 mg/dL Low 8.4-10.2 [facility] Comment on above: Order Comment: [facility] has implemented the eGFR calculation approach that does not have a coefficient for race that conforms to the NKF-ASN Task Force Recommendations. Performed By: #### 4 6449 ####[facility] [address] [place], [place] [address] Glenn Gudino M.D. [id number] Chloride [Moles/Vol] 98 mmol/L Normal 98-108 [facility] Comment on above: Order Comment: [facility] has implemented the eGFR calculation approach that does not have a coefficient for race that conforms to the NKF-ASN Task Force Recommendations. Performed By: #### 4 6449 ####[facility] [address] [place], [place] [address] Glenn Gudino M.D. [id number] Creatinine [Mass/Vol] 1.51 mg/dL High 0.60-1.10 [facility] Comment on above: Order Comment: [facility] has implemented the eGFR calculation approach that does not have a coefficient for race that conforms to the NKF-ASN Task Force Recommendations. Performed By: #### 4 6449 ####[facility] [address] [place], [place] [address] Glenn Gudino M.D. [id number] EGFR 39 mL/min/1.73 m2 Low >=60 [facility] Comment on above: Order Comment: [facility] has implemented the eGFR calculation approach that does not have a coefficient for race that conforms to the NKF-ASN Task Force Recommendations. Result Comment: Joi mated GFR was calculated using the 2020 CKD-EPI creatinine equation. Performed By: #### 4 6449 ####[facility] [address] [place], [place] [address] Glenn Gudino M.D. [id number] Glucose [Mass/Vol] 140 mg/dL High 65-99 [facility] Comment on above: Order Comment: [facility] has implemented the eGFR calculation approach that does not have a coefficient for race that conforms to the NKF-ASN Task Force Recommendations. Performed By: #### 4 6449 ####[facility] [address] [place] [address] Glenn Gudino M.D. [id number] HCO3 (Bld) [Moles/Vol] 28 mmol/L Normal 21-32 [facility] Comment on above: Order Comment: [facility] has implemented the eGFR calculation approach that does not have a coefficient for race that conforms to the NKF-ASN Task Force Recommendations. Performed By: #### 4 6449 ####[facility] [address] [place], [place] [address] Glenn Gudino M.D. [id number] Phosphate [Mass/Vol] 3.0 mg/dL Normal 2.8-4.1 [facility] Comment on above: Order Comment: [facility] has implemented the eGFR calculation approach that does not have a coefficient for race that conforms to the NKF-ASN Task Force Recommendations. Performed By: #### 4 6449 ####[facility] [address] [place], [place] [address] Glenn Gudino M.D. [id number] Potassium [Moles/Vol] 3.6 mmol/L Normal 3.5-5.1 [facility] Comment on above: Order Comment: [facility] has implemented the eGFR calculation approach that does not have a coefficient for race that conforms to the NKF-ASN Task Force Recommendations. Performed By: #### 4 6449 ####[facility] [address] [place], [place] [address] Glenn Gudino M.D. [id number] Sodium [Moles/Vol] 135 mmol/L Normal 135-145 [facility] Comment on above: Order Comment: [facility] has implemented the eGFR calculation approach that does not have a coefficient for race that conforms to the NKF-ASN Task Force Recommendations. Performed By: #### 4 6449 ####[facility] [address] [place] [address] Glenn Gudino M.D. [id number] Urea nitrogen [Mass/Vol] 20 mg/dL Normal 8-25 [facility] Comment on above: Order Comment: [facility] has implemented the eGFR calculation approach that does not have a coefficient for race that conforms to the NKF-ASN Task Force Recommendations. Performed By: #### 4 6449 ####[facility] [address] [place] [address] Glenn Gudino M.D. [id number] Urea nitrogen/Creatinine [Mass ratio] 13.2 mg/mg Normal 10.0-20.0 [facility] Comment on above: Order Comment: [facility] has implemented the eGFR calculation approach that does not have a coefficient for race that conforms to the NKF-ASN Task Force Recommendations. Performed By: #### 4 6449 ####[facility] [address] [place] [address] Glenn Gudino M.D. [id number] ANTIBODY IDENTIFICATION-Con 02-21-2024 ANTIBODY IDENTIFICATION-C Normal [facility] Comment on above: Performed By: #### 4 6427_Anti-C ####[facility] [address] [place] [address] Nurys Oneill MD [id number] [facility] CALCIUM, IONIZEDon CALCIUM IONIZED 4.5 mg/dL Normal 4.5-5.3 [facility] Comment on above: Order Comment: Serum , non-CRRT source. Performed By: #### 4 5190 ####[facility] [address] [place] [address] Glenn Gudino M.D. [id number] CBCon 02-21-2024 AUTO NRBC 0.0 % Normal [facility] Comment on above: Performed By: #### 4 [id number] ####[facility] [address] [place] [address] Glenn Gudino M.D. [id number] AUTO NRBC ABS COUNT 0.00 K/mcL Normal 0.00-0.00 [facility] Comment on above: Performed By: #### 4 [id number] ####[facility] [address] [place] [address] Glenn Gudino M.D. [id number] Erythrocyte distribution width (RBC) [Ratio] 18.6 % High 11.6-14.8 [facility] Comment on above: Performed By: #### 4 [id number] ####[facility] [address] [place], [place] [address] Glenn Gudino M.D. [id number] Hematocrit (Bld) [Volume fraction] 24.4 % Low 36.0-46.0 [facility] Comment on above: Performed By: #### 4 [id number] ####[facility] [address] [place], [place] [address] Glenn Gudino M.D. [id number] Hemoglobin (Bld) [Mass/Vol] 7.8 g/dL Low 12.0-16.0 [facility] Comment on above: Result Comment: Zuleima pheral smear reviewed manually Performed By: #### 4 [id number] ####[facility] [address] [place] [address] Glenn Gudino M.D. [id number] MCH (RBC) [Entitic mass] 29.4 pg Normal 26.0-34.0 [facility] Comment on above: Performed By: #### 4 [id number] ####[facility] [address] [place] [address] Glenn Gudino M.D. [id number] MCV (RBC) [Entitic vol] 92.1 fL Normal 80.0-100.0 [facility] Comment on above: Performed By: #### 4 [id number] ####[facility] [address] [place] [address] Glenn Gudino M.D. [id number] MEAN CORPUSCULAR HEMOGLOBIN CONC 32.0 g/dL Normal 31.0-37.0 [facility] Comment on above: Performed By: #### 4 [id number] ####[facility] [address] [place] [address] Glenn Gudino M.D. [id number] Platelet mean volume (Bld) [Entitic vol] 9.5 fL Normal 9.4-12.4 [facility] Comment on above: Performed By: #### 4 [id number] ####[facility] [address] [place], [place] [address] Glenn Gudino M.D. [id number] Platelets (Bld) [#/Vol] 234 10*3/uL Normal 150-400 [facility] Comment on above: Performed By: #### 4 [id number] ####[facility] [address] [place], [place] [address] Glenn Gudino M.D. [id number] RBC (Bld) [#/Vol] 2.65 10*6/uL Low 4.00-5.20 [facility] Comment on above: Performed By: #### 4 [id number] ####[facility] [address] [place] [address] Glenn Gudino M.D. [id number] WBC (Bld) [#/Vol] 27.78 10*3/uL High 4.50-11.00 [facility] Comment on above: Performed By: #### 4 [id number] ####[facility] [address] [place] [address] Glenn Gudino M.D. [id number] CONSULTon 02-21-2024 CONSULT Normal [facility] MAGNESIUM LEVELon 02-21-2024 Magnesium [Mass/Vol] 1.8 mg/dL Normal 1.6-2.4 [facility] Comment on above: Performed By: #### 4 6109 ####[facility] [address] [place] [address] Glenn Gudino M.D. [id number] [facility] Glucose [Mass/Vol] 85 mg/dL Normal 65-99 [facility] Comment on above: Performed By: #### 4 6932 ####[facility] [address] [place] [address] [id number] [facility] RENAL FUNCTION PANELon 02-20 Albumin [Mass/Vol] 2.2 g/dL Low 3.2-5.2 [facility] Comment on above: Order Comment: [facility] has implemented the eGFR calculation approach that does not have a coefficient for race that conforms to the NKF-ASN Task Force Recommendations. Performed By: #### 4 6449 ####[facility] [address] [place] [address] Glenn Gudino M.D. [id number] Anion gap [Moles/Vol] 18 mmol/L Normal 10-20 [facility] Comment on above: Order Comment: [facility] has implemented the eGFR calculation approach that does not have a coefficient for race that conforms to the NKF-ASN Task Force Recommendations. Performed By: #### 4 6449 ####[facility] [address] [place], [place] [address] Glenn Gudino M.D. [id number] Calcium [Mass/Vol] 7.8 mg/dL Low 8.4-10.2 [facility] Comment on above: Order Comment: [facility] has implemented the eGFR calculation approach that does not have a coefficient for race that conforms to the NKF-ASN Task Force Recommendations. Performed By: #### 4 6449 ####[facility] [address] [place], [place] [address] Glenn Gudino M.D. [id number] Chloride [Moles/Vol] 99 mmol/L Normal 98-108 [facility] Comment on above: Order Comment: [facility] has implemented the eGFR calculation approach that does not have a coefficient for race that conforms to the NKF-ASN Task Force Recommendations. Performed By: #### 4 6449 ####[facility] [address] [place], [place] [address] Glenn Gudino M.D. [id number] Creatinine [Mass/Vol] 2.59 mg/dL High 0.60-1.10 [facility] Comment on above: Order Comment: [facility] has implemented the eGFR calculation approach that does not have a coefficient for race that conforms to the NKF-ASN Task Force Recommendations. Performed By: #### 4 6449 ####[facility] [address] [place], [place] [address] Glenn Gudino M.D. [id number] EGFR 21 mL/min/1.73 m2 Low >=60 [facility] Comment on above: Order Comment: [facility] has implemented the eGFR calculation approach that does not have a coefficient for race that conforms to the NKF-ASN Task Force Recommendations. Result Comment: Joi mated GFR was calculated using the 2020 CKD-EPI creatinine equation. Performed By: #### 4 6449 ####[facility] [address] [place], [place] [address] Glenn Gudino M.D. [id number] Glucose [Mass/Vol] 64 mg/dL Low 65-99 [facility] Comment on above: Order Comment: [facility] has implemented the eGFR calculation approach that does not have a coefficient for race that conforms to the NKF-ASN Task Force Recommendations. Performed By: #### 4 6449 ####[facility] [address] [place] [address] Glenn Gudino M.D. [id number] HCO3 (Bld) [Moles/Vol] 23 mmol/L Normal 21-32 [facility] Comment on above: Order Comment: [facility] has implemented the eGFR calculation approach that does not have a coefficient for race that conforms to the NKF-ASN Task Force Recommendations. Performed By: #### 4 6449 ####[facility] [address] [place], [place] [address] Glenn Gudino M.D. [id number] Phosphate [Mass/Vol] 5.1 mg/dL High 2.8-4.1 [facility] Comment on above: Order Comment: [facility] has implemented the eGFR calculation approach that does not have a coefficient for race that conforms to the NKF-ASN Task Force Recommendations. Performed By: #### 4 6449 ####[facility] [address] [place], [place] [address] Glenn Gudino M.D. [id number] Potassium [Moles/Vol] 4.0 mmol/L Normal 3.5-5.1 [facility] Comment on above: Order Comment: [facility] has implemented the eGFR calculation approach that does not have a coefficient for race that conforms to the NKF-ASN Task Force Recommendations. Performed By: #### 4 6449 ####[facility] [address] [place], [place] [address] Glenn Gudino M.D. [id number] Sodium [Moles/Vol] 136 mmol/L Normal 135-145 [facility] Comment on above: Order Comment: [facility] has implemented the eGFR calculation approach that does not have a coefficient for race that conforms to the NKF-ASN Task Force Recommendations. Performed By: #### 4 6449 ####[facility] [address] [place] [address] Glenn Gudino M.D. [id number] Urea nitrogen [Mass/Vol] 39 mg/dL High 8-25 [facility] Comment on above: Order Comment: [facility] has implemented the eGFR calculation approach that does not have a coefficient for race that conforms to the NKF-ASN Task Force Recommendations. Performed By: #### 4 6449 ####[facility] [address] [place], [place] [address] Glenn Gudino M.D. [id number] Urea nitrogen/Creatinine [Mass ratio] 15.1 mg/mg Normal 10.0-20.0 [facility] Comment on above: Order Comment: [facility] has implemented the eGFR calculation approach that does not have a coefficient for race that conforms to the NKF-ASN Task Force Recommendations. Performed By: #### 4 6449 ####[facility] [address] [place], [place] [address] Glenn Gudino M.D. [id number] TYPE AND SCREENon 02-21-2024 TYPE AND SCREEN ABORH: O Positive AB SCREEN: Positive EXPIRATION DATE: 02/24/2024 23:59 EST Normal [facility] Comment on above: Performed By: #### 4 6619 ####[facility] [address] [place] [address] Nurys Oneill MD [id number] [facility] URINE AEROBIC CULTUREon 01-28 URINE AEROBIC CULTURE URINE CULTURE Three or more morphotypes suggesting probable contamination during specimen (urine) collection. Suggest repeat if clinically indicated Normal [facility] Comment on above: Performed By: #### 4 4053 ####[facility] [address] [place] [address] Glenn Gudino M.D. [id number] CALCIUM, IONIZEDon CALCIUM IONIZED 4.5 mg/dL Normal 4.5-5.3 [facility] Comment on above: Order Comment: Serum , non-CRRT source. Performed By: #### 4 5190 ####[facility] [address] [place] [address] Glenn Gudino M.D. [id number] CBCon 02-20-2024 AUTO NRBC 0.0 % Normal [facility] Comment on above: Performed By: #### 4 [id number] ####[facility] [address] [place], [place] [address] Glenn Gudino M.D. [id number] AUTO NRBC ABS COUNT 0.00 K/mcL Normal 0.00-0.00 [facility] Comment on above: Performed By: #### 4 [id number] ####[facility] [address] [place], [place] [address] Glenn Gudino M.D. [id number] Erythrocyte distribution width (RBC) [Ratio] 18.7 % High 11.6-14.8 [facility] Comment on above: Performed By: #### 4 [id number] ####[facility] [address] [place], [place] [address] Glenn Gudino M.D. [id number] Hematocrit (Bld) [Volume fraction] 27.2 % Low 36.0-46.0 [facility] Comment on above: Performed By: #### 4 [id number] ####[facility] [address] [place], [place] [address] Glenn Gudino M.D. [id number] Hemoglobin (Bld) [Mass/Vol] 8.6 g/dL Low 12.0-16.0 [facility] Comment on above: Performed By: #### 4 [id number] ####[facility] [address] [id number] Glenn Gudino M.D. [id number] MCH (RBC) [Entitic mass] 28.9 pg Normal 26.0-34.0 [facility] Comment on above: Performed By: #### 4 [id number] ####[facility] [address] [place] [address] Glenn Gudino M.D. [id number] MCV (RBC) [Entitic vol] 91.3 fL Normal 80.0-100.0 [facility] Comment on above: Performed By: #### 4 [id number] ####[facility] [address] [place] [address] Glenn Gudino M.D. [id number] MEAN CORPUSCULAR HEMOGLOBIN CONC 31.6 g/dL Normal 31.0-37.0 [facility] Comment on above: Performed By: #### 4 [id number] ####[facility] [address] [place], [place] [address] Glenn Gudino M.D. [id number] Platelet mean volume (Bld) [Entitic vol] 9.2 fL Low 9.4-12.4 [facility] Comment on above: Performed By: #### 4 [id number] ####[facility] [address] [place], [place] [address] Glenn Gudino M.D. [id number] Platelets (Bld) [#/Vol] 244 10*3/uL Normal 150-400 [facility] Comment on above: Performed By: #### 4 [id number] ####[facility] [address] [place], [place] [address] Glenn Gudino M.D. [id number] RBC (Bld) [#/Vol] 2.98 10*6/uL Low 4.00-5.20 [facility] Comment on above: Performed By: #### 4 [id number] ####[facility] [address] [place] [address] Glenn Gudino M.D. [id number] WBC (Bld) [#/Vol] 21.11 10*3/uL High 4.50-11.00 [facility] Comment on above: Performed By: #### 4 [id number] ####[facility] [address] [place], [place] [address] Glenn Gudino M.D. [id number] MAGNESIUM LEVELon 02-20-2024 Magnesium [Mass/Vol] 2.0 mg/dL Normal 1.6-2.4 [facility] Comment on above: Performed By: #### 4 6109 ####[facility] [address] [place], [place] [address] Glenn Gudino M.D. [id number] RENAL FUNCTION PANELon 02-19 Albumin [Mass/Vol] 2.6 g/dL Low 3.2-5.2 [facility] Comment on above: Order Comment: [facility] has implemented the eGFR calculation approach that does not have a coefficient for race that conforms to the NKF-ASN Task Force Recommendations. Performed By: #### 4 6449 ####[facility] [address] [place], [place] [address] Glenn Gudino M.D. [id number] Anion gap [Moles/Vol] 16 mmol/L Normal 10-20 [facility] Comment on above: Order Comment: [facility] has implemented the eGFR calculation approach that does not have a coefficient for race that conforms to the NKF-ASN Task Force Recommendations. Performed By: #### 4 6449 ####[facility] [address] [place] [address] Glenn Gudino M.D. [id number] Calcium [Mass/Vol] 8.2 mg/dL Low 8.4-10.2 [facility] Comment on above: Order Comment: [facility] has implemented the eGFR calculation approach that does not have a coefficient for race that conforms to the NKF-ASN Task Force Recommendations. Performed By: #### 4 6449 ####[facility] [address] [place] [address] Glenn Gudino M.D. [id number] Chloride [Moles/Vol] 96 mmol/L Low 98-108 [facility] Comment on above: Order Comment: [facility] has implemented the eGFR calculation approach that does not have a coefficient for race that conforms to the NKF-ASN Task Force Recommendations. Performed By: #### 4 6449 ####[facility] [address] [place] [address] Glenn Gudino M.D. [id number] Creatinine [Mass/Vol] 1.96 mg/dL High 0.60-1.10 [facility] Comment on above: Order Comment: [facility] has implemented the eGFR calculation approach that does not have a coefficient for race that conforms to the NKF-ASN Task Force Recommendations. Performed By: #### 4 6449 ####[facility] [address] [place] [address] Glenn Gudino M.D. [id number] EGFR 29 mL/min/1.73 m2 Low >=60 [facility] Comment on above: Order Comment: [facility] has implemented the eGFR calculation approach that does not have a coefficient for race that conforms to the NKF-ASN Task Force Recommendations. Result Comment: Joi mated GFR was calculated using the 2020 CKD-EPI creatinine equation. Performed By: #### 4 6449 ####[facility] [address] [place] [address] Glenn Gudino M.D. [id number] Glucose [Mass/Vol] 99 mg/dL Normal 65-99 [facility] Comment on above: Order Comment: [facility] has implemented the eGFR calculation approach that does not have a coefficient for race that conforms to the NKF-ASN Task Force Recommendations. Performed By: #### 4 6449 ####[facility] [address] [place] [address] Glenn Gudino M.D. [id number] HCO3 (Bld) [Moles/Vol] 26 mmol/L Normal 21-32 [facility] Comment on above: Order Comment: [facility] has implemented the eGFR calculation approach that does not have a coefficient for race that conforms to the NKF-ASN Task Force Recommendations. Performed By: #### 4 6449 ####[facility] [address] [place] [address] Glenn Gudino M.D. [id number] Phosphate [Mass/Vol] 3.4 mg/dL Normal 2.8-4.1 [facility] Comment on above: Order Comment: [facility] has implemented the eGFR calculation approach that does not have a coefficient for race that conforms to the NKF-ASN Task Force Recommendations. Performed By: #### 4 6449 ####[facility] [address] [place] [address] Glenn Gudino M.D. [id number] Potassium [Moles/Vol] 4.2 mmol/L Normal 3.5-5.1 [facility] Comment on above: Order Comment: [facility] has implemented the eGFR calculation approach that does not have a coefficient for race that conforms to the NKF-ASN Task Force Recommendations. Result Comment: Slig htly Hemolyzed Performed By: #### 4 6449 ####[facility] [address] [place] [address] Glenn Gudino M.D. [id number] Sodium [Moles/Vol] 134 mmol/L Low 135-145 [facility] Comment on above: Order Comment: [facility] has implemented the eGFR calculation approach that does not have a coefficient for race that conforms to the NKF-ASN Task Force Recommendations. Performed By: #### 4 6449 ####[facility] [address] [place], [place] [address] Glenn Gudino M.D. [id number] Urea nitrogen [Mass/Vol] 27 mg/dL High 8-25 [facility] Comment on above: Order Comment: [facility] has implemented the eGFR calculation approach that does not have a coefficient for race that conforms to the NKF-ASN Task Force Recommendations. Performed By: #### 4 6449 ####[facility] [address] [place] [address] Glenn Gudino M.D. [id number] Urea nitrogen/Creatinine [Mass ratio] 13.8 mg/mg Normal 10.0-20.0 [facility] Comment on above: Order Comment: [facility] has implemented the eGFR calculation approach that does not have a coefficient for race that conforms to the NKF-ASN Task Force Recommendations. Performed By: #### 4 6449 ####[facility] [address] [place] [address] Glenn Gudino M.D. [id number] XR CHEST PA/APon 02-20-2024 XR CHEST PA/AP Normal [facility] Comment on above: Order Comment: Injur y/Trauma or Illness?:Illness/OtherHow long have you had these symptoms (acute/chronic)?:UnknownReason for exam?:pleural effusionHistory of cancer?:uSurgeries, chemotherapy, or radiation?:uType of Exam?:UnknownAdditional signs and symptoms?:no CALCIUM, IONIZEDon CALCIUM IONIZED 4.7 mg/dL Normal 4.5-5.3 [facility] Comment on above: Order Comment: Serum , non-CRRT source. Performed By: #### 4 5190 ####[facility] [address] [place] [address] Glenn Gudino M.D. [id number] CBCon 02-19-2024 AUTO NRBC 0.0 % Normal [facility] Comment on above: Performed By: #### 4 [id number] ####[facility] [address] [place] [address] Glenn Gudino M.D. [id number] AUTO NRBC ABS COUNT 0.00 K/mcL Normal 0.00-0.00 [facility] Comment on above: Performed By: #### 4 [id number] ####[facility] [address] [place] [address] Glenn Gudino M.D. [id number] Erythrocyte distribution width (RBC) [Ratio] 19.5 % High 11.6-14.8 [facility] Comment on above: Performed By: #### 4 [id number] ####[facility] [address] [place] [address] Glenn Gudino M.D. [id number] Hematocrit (Bld) [Volume fraction] 25.3 % Low 36.0-46.0 [facility] Comment on above: Performed By: #### 4 [id number] ####[facility] [address] [place] [address] Glenn Gudino M.D. [id number] Hemoglobin (Bld) [Mass/Vol] 8.0 g/dL Low 12.0-16.0 [facility] Comment on above: Performed By: #### 4 [id number] ####[facility] [address] [place] [address] Glenn Gudino M.D. [id number] MCH (RBC) [Entitic mass] 29.1 pg Normal 26.0-34.0 [facility] Comment on above: Performed By: #### 4 [id number] ####[facility] [address] [place] [address] Glenn Gudino M.D. [id number] MCV (RBC) [Entitic vol] 92.0 fL Normal 80.0-100.0 [facility] Comment on above: Performed By: #### 4 6318 ####[facility] [address] [place] [address] Glenn Gudino M.D. [id number] MEAN CORPUSCULAR HEMOGLOBIN CONC 31.6 g/dL Normal 31.0-37.0 [facility] Comment on above: Performed By: #### 4 [id number] ####[facility] [address] [place], [place] [address] Glenn Gudino M.D. [id number] Platelet mean volume (Bld) [Entitic vol] 9.7 fL Normal 9.4-12.4 [facility] Comment on above: Performed By: #### 4 [id number] ####[facility] [address] [place], [place] [address] Glenn Gudino M.D. [id number] Platelets (Bld) [#/Vol] 235 10*3/uL Normal 150-400 [facility] Comment on above: Performed By: #### 4 [id number] ####[facility] [address] [place], [place] [address] Glenn Gudino M.D. [id number] RBC (Bld) [#/Vol] 2.75 10*6/uL Low 4.00-5.20 [facility] Comment on above: Performed By: #### 4 [id number] ####[facility] [address] [place], [place] [address] Glenn Gudino M.D. [id number] WBC (Bld) [#/Vol] 9.65 10*3/uL Normal 4.50-11.00 [facility] Comment on above: Performed By: #### 4 [id number] ####[facility] [address] [place], [place] [address] Glenn Gudino M.D. [id number] MAGNESIUM LEVELon 02-19-2024 Magnesium [Mass/Vol] 1.8 mg/dL Normal 1.6-2.4 [facility] Comment on above: Performed By: #### 4 6109 ####[facility] [address] [place], [place] [address] Glenn Gudino M.D. [id number] [facility] Glucose [Mass/Vol] 133 mg/dL High 65-99 [facility] Comment on above: Performed By: #### 4 6932 ####[facility] [address] [place] [address] [id number] [facility] 02-18 Albumin [Mass/Vol] 2.3 g/dL Low 3.2-5.2 [facility] Comment on above: Order Comment: [facility] has implemented the eGFR calculation approach that does not have a coefficient for race that conforms to the NKF-ASN Task Force Recommendations. Performed By: #### 4 6449 ####[facility] [address] [place], [place] [address] Glenn Gudino M.D. [id number] Anion gap [Moles/Vol] 15 mmol/L Normal 10-20 [facility] Comment on above: Order Comment: [facility] has implemented the eGFR calculation approach that does not have a coefficient for race that conforms to the NKF-ASN Task Force Recommendations. Performed By: #### 4 6449 ####[facility] [address] [place], [place] [address] Glenn Gudino M.D. [id number] Calcium [Mass/Vol] 8.5 mg/dL Normal 8.4-10.2 [facility] Comment on above: Order Comment: [facility] has implemented the eGFR calculation approach that does not have a coefficient for race that conforms to the NKF-ASN Task Force Recommendations. Performed By: #### 4 6449 ####[facility] [address] [place], [place] [address] Glenn Gudino M.D. [id number] Chloride [Moles/Vol] 99 mmol/L Normal 98-108 [facility] Comment on above: Order Comment: [facility] has implemented the eGFR calculation approach that does not have a coefficient for race that conforms to the NKF-ASN Task Force Recommendations. Performed By: #### 4 6449 ####[facility] [address] [place], [place] [address] Glenn Gudino M.D. [id number] Creatinine [Mass/Vol] 2.11 mg/dL High 0.60-1.10 [facility] Comment on above: Order Comment: [facility] has implemented the eGFR calculation approach that does not have a coefficient for race that conforms to the NKF-ASN Task Force Recommendations. Performed By: #### 4 6449 ####[facility] [address] [place], [place] [address] Glenn Gudino M.D. [id number] EGFR 26 mL/min/1.73 m2 Low >=60 [facility] Comment on above: Order Comment: [facility] has implemented the eGFR calculation approach that does not have a coefficient for race that conforms to the NKF-ASN Task Force Recommendations. Result Comment: Joi mated GFR was calculated using the 2020 CKD-EPI creatinine equation. Performed By: #### 4 6449 ####[facility] [address] [place] [address] Glenn Gudino M.D. [id number] Glucose [Mass/Vol] 127 mg/dL High 65-99 [facility] Comment on above: Order Comment: [facility] has implemented the eGFR calculation approach that does not have a coefficient for race that conforms to the NKF-ASN Task Force Recommendations. Performed By: #### 4 6449 ####[facility] [address] [place] [address] Glenn Gudino M.D. [id number] HCO3 (Bld) [Moles/Vol] 28 mmol/L Normal 21-32 [facility] Comment on above: Order Comment: [facility] has implemented the eGFR calculation approach that does not have a coefficient for race that conforms to the NKF-ASN Task Force Recommendations. Performed By: #### 4 6449 ####[facility] [address] [place] [address] Glenn Gudino M.D. [id number] Phosphate [Mass/Vol] 4.5 mg/dL High 2.8-4.1 [facility] Comment on above: Order Comment: [facility] has implemented the eGFR calculation approach that does not have a coefficient for race that conforms to the NKF-ASN Task Force Recommendations. Performed By: #### 4 6449 ####[facility] [address] [place] [address] Glenn Gudino M.D. [id number] Potassium [Moles/Vol] 5.5 mmol/L High 3.5-5.1 [facility] Comment on above: Order Comment: [facility] has implemented the eGFR calculation approach that does not have a coefficient for race that conforms to the NKF-ASN Task Force Recommendations. Result Comment: Slig htly Hemolyzed Performed By: #### 4 6449 ####[facility] [address] [place] [address] Glenn Gudino M.D. [id number] Sodium [Moles/Vol] 136 mmol/L Normal 135-145 [facility] Comment on above: Order Comment: [facility] has implemented the eGFR calculation approach that does not have a coefficient for race that conforms to the NKF-ASN Task Force Recommendations. Performed By: #### 4 6449 ####[facility] [address] [place] [address] Glenn Gudino M.D. [id number] Urea nitrogen [Mass/Vol] 39 mg/dL High 8-25 [facility] Comment on above: Order Comment: [facility] has implemented the eGFR calculation approach that does not have a coefficient for race that conforms to the NKF-ASN Task Force Recommendations. Performed By: #### 4 6449 ####[facility] [address] [place] [address] Glenn Gudino M.D. [id number] Urea nitrogen/Creatinine [Mass ratio] 18.5 mg/mg Normal 10.0-20.0 [facility] Comment on above: Order Comment: [facility] has implemented the eGFR calculation approach that does not have a coefficient for race that conforms to the NKF-ASN Task Force Recommendations. Performed By: #### 4 6449 ####[facility] [address] [place] [address] Glenn Gudino M.D. [id number] XR CHEST PA/APon 02-19-2024 XR CHEST PA/AP [facility] Comment on above: Order Comment: Injur y/Trauma or Illness?:Illness/OtherHow long have you had these symptoms (acute/chronic)?:AcuteReason for exam?:pleural effusionHistory of cancer?:uSurgeries, chemotherapy, or radiation?:uType of Exam?:Subsequent/Follow-upAdditional signs and symptoms?:pleural effusion ANTIBODY IDENTIFICATION-FYAo n 02-18-2024 ANTIBODY IDENTIFICATION-FYA Normal [facility] Comment on above: Performed By: #### 4 6427_Anti-Fya ####[facility] [address] [place] [address] Nurys Oneill MD [id number] RMHTS CBCon 02-18-2024 AUTO NRBC 0.0 % Normal [facility] Comment on above: Performed By: #### 4 [id number] ####[facility] [address] [place], [place] [address] Glenn Gudino M.D. [id number] AUTO NRBC ABS COUNT 0.00 K/mcL Normal 0.00-0.00 [facility] Comment on above: Performed By: #### 4 [id number] ####[facility] [address] [place], [place] [address] Glenn Gudino M.D. [id number] Erythrocyte distribution width (RBC) [Ratio] 19.9 % High 11.6-14.8 [facility] Comment on above: Performed By: #### 4 [id number] ####[facility] [address] [place] [address] Glenn Gudino M.D. [id number] Hematocrit (Bld) [Volume fraction] 27.8 % Low 36.0-46.0 [facility] Comment on above: Performed By: #### 4 [id number] ####[facility] [address] [place] [address] Glenn Gudino M.D. [id number] Hemoglobin (Bld) [Mass/Vol] 8.9 g/dL Low 12.0-16.0 [facility] Comment on above: Performed By: #### 4 [id number] ####[facility] [address] [place] [address] Glenn Gudino M.D. [id number] MCH (RBC) [Entitic mass] 29.6 pg Normal 26.0-34.0 [facility] Comment on above: Performed By: #### 4 [id number] ####[facility] [address] [place] [address] Glenn Gudino M.D. [id number] MCV (RBC) [Entitic vol] 92.4 fL Normal 80.0-100.0 [facility] Comment on above: Performed By: #### 4 [id number] ####[facility] [address] [place], [place] [address] Glenn Gudino M.D. [id number] MEAN CORPUSCULAR HEMOGLOBIN CONC 32.0 g/dL Normal 31.0-37.0 [facility] Comment on above: Performed By: #### 4 5259 ####[facility] [address] [place], [place] [address] Glenn Gudino M.D. [id number] Platelet mean volume (Bld) [Entitic vol] 9.6 fL Normal 9.4-12.4 [facility] Comment on above: Performed By: #### 4 [id number] ####[facility] [address] [place], [place] [address] Glenn Gudino M.D. [id number] Platelets (Bld) [#/Vol] 222 10*3/uL Normal 150-400 [facility] Comment on above: Performed By: #### 4 [id number] ####[facility] [address] [place] [address] Glenn Gudino M.D. [id number] RBC (Bld) [#/Vol] 3.01 10*6/uL Low 4.00-5.20 [facility] Comment on above: Performed By: #### 4 [id number] ####[facility] [address] [place], [place] [address] Glenn Gudino M.D. [id number] WBC (Bld) [#/Vol] 14.78 10*3/uL High 4.50-11.00 [facility] Comment on above: Performed By: #### 4 [id number] ####[facility] [address] [place], [place] [address] Glenn Gduino M.D. [id number] MAGNESIUM LEVELon 02-18-2024 Magnesium [Mass/Vol] 1.9 mg/dL Normal 1.6-2.4 [facility] Comment on above: Performed By: #### 4 6109 ####[facility] [address] [place] [address] Glenn Gudino M.D. [id number] POC GLUCOSE [facility] 024 Glucose [Mass/Vol] 114 mg/dL High 65-99 [facility] Comment on above: Performed By: #### 4 6932 ####[facility] [address] [place] [address] [id number] [facility] RENAL FUNCTION PANELon 02-17 Albumin [Mass/Vol] 2.3 g/dL Low 3.2-5.2 [facility] Comment on above: Order Comment: [facility] has implemented the eGFR calculation approach that does not have a coefficient for race that conforms to the NKF-ASN Task Force Recommendations. Performed By: #### 4 6449 ####[facility] [address] [place], [place] [address] Glenn Gudino M.D. [id number] Anion gap [Moles/Vol] 16 mmol/L Normal 10-20 [facility] Comment on above: Order Comment: [facility] has implemented the eGFR calculation approach that does not have a coefficient for race that conforms to the NKF-ASN Task Force Recommendations. Performed By: #### 4 6449 ####[facility] [address] [place], [place] [address] Glenn Gudino M.D. [id number] Calcium [Mass/Vol] 8.2 mg/dL Low 8.4-10.2 [facility] Comment on above: Order Comment: [facility] has implemented the eGFR calculation approach that does not have a coefficient for race that conforms to the NKF-ASN Task Force Recommendations. Performed By: #### 4 6449 ####[facility] [address] [place] [address] 53136 Glenn Gudino M.D. [id number] Chloride [Moles/Vol] 96 mmol/L Low 98-108 [facility] Comment on above: Order Comment: [facility] has implemented the eGFR calculation approach that does not have a coefficient for race that conforms to the NKF-ASN Task Force Recommendations. Performed By: #### 4 6449 ####[facility] [address] [place] [address] 85333 Glenn Gudino M.D. [id number] Creatinine [Mass/Vol] 2.72 mg/dL High 0.60-1.10 [facility] Comment on above: Order Comment: [facility] has implemented the eGFR calculation approach that does not have a coefficient for race that conforms to the NKF-ASN Task Force Recommendations. Performed By: #### 4 6449 ####[facility] [address] [place] [address] 90327 Glenn Gudino M.D. [id number] EGFR 19 mL/min/1.73 m2 Low >=60 [facility] Comment on above: Order Comment: [facility] has implemented the eGFR calculation approach that does not have a coefficient for race that conforms to the NKF-ASN Task Force Recommendations. Result Comment: Joi mated GFR was calculated using the 2020 CKD-EPI creatinine equation. Performed By: #### 4 6449 ####[facility] [address] [place], [place] [address] Glenn Gudino M.D. [id number] Glucose [Mass/Vol] 159 mg/dL High 65-99 [facility] Comment on above: Order Comment: [facility] has implemented the eGFR calculation approach that does not have a coefficient for race that conforms to the NKF-ASN Task Force Recommendations. Performed By: #### 4 6449 ####[facility] [address] [place] [address] 41790 Glenn Gudino M.D. [id number] HCO3 (Bld) [Moles/Vol] 25 mmol/L Normal 21-32 [facility] Comment on above: Order Comment: [facility] has implemented the eGFR calculation approach that does not have a coefficient for race that conforms to the NKF-ASN Task Force Recommendations. Performed By: #### 4 6449 ####[facility] [address] [place], [place] [address] Glenn Gudino M.D. [id number] Phosphate [Mass/Vol] 5.4 mg/dL High 2.8-4.1 [facility] Comment on above: Order Comment: [facility] has implemented the eGFR calculation approach that does not have a coefficient for race that conforms to the NKF-ASN Task Force Recommendations. Performed By: #### 4 6449 ####[facility] [address] [place] [address] 75567 Glenn Gudino M.D. [id number] Potassium [Moles/Vol] 6.9 mmol/L Off scale high 3.5-5.1 [facility] Comment on above: Order Comment: [facility] has implemented the eGFR calculation approach that does not have a coefficient for race that conforms to the NKF-ASN Task Force Recommendations. Performed By: #### 4 6449 ####[facility] [address] [place] [address] 32027 Glenn Gudino M.D. [id number] Sodium [Moles/Vol] 130 mmol/L Low 135-145 [facility] Comment on above: Order Comment: [facility] has implemented the eGFR calculation approach that does not have a coefficient for race that conforms to the NKF-ASN Task Force Recommendations. Performed By: #### 4 6449 ####[facility] [address] [place] [address] 18973 Glenn Gudino M.D. [id number] Urea nitrogen [Mass/Vol] 56 mg/dL High 8-25 [facility] Comment on above: Order Comment: [facility] has implemented the eGFR calculation approach that does not have a coefficient for race that conforms to the NKF-ASN Task Force Recommendations. Performed By: #### 4 6449 ####[facility] [address] [place] [address] 87121 Glenn Gudino M.D. [id number] Urea nitrogen/Creatinine [Mass ratio] 20.6 mg/mg High 10.0-20.0 [facility] Comment on above: Order Comment: [facility] has implemented the eGFR calculation approach that does not have a coefficient for race that conforms to the NKF-ASN Task Force Recommendations. Performed By: #### 4 6449 ####[facility] [address] [place] [address] Glenn Gudino M.D. [id number] TYPE AND SCREENon 02-18-2024 TYPE AND SCREEN Normal [facility] Comment on above: Performed By: #### 4 6619 ####[facility] [address] [place] [address] Nurys Oneill MD [id number] HTS CALCIUM, IONIZEDon CALCIUM IONIZED 4.5 mg/dL Normal 4.5-5.3 [facility] Comment on above: Order Comment: Serum , non-CRRT source. Performed By: #### 4 5190 ####[facility] [address] [place] [address] Glenn Gudino M.D. [id number] CBCon 02-17-2024 AUTO NRBC 0.0 % Normal [facility] Comment on above: Performed By: #### 4 5218 ####[facility] [address] [place], [place] [address] Glenn Gudino M.D. [id number] AUTO NRBC ABS COUNT 0.00 K/mcL Normal 0.00-0.00 [facility] Comment on above: Performed By: #### 4 5218 ####[facility] [address] [place], [place] [address] Glenn Gudino M.D. [id number] Erythrocyte distribution width (RBC) [Ratio] 20.7 % High 11.6-14.8 [facility] Comment on above: Performed By: #### 4 5218 ####[facility] [address] [place], [place] [address] Glenn Gudino M.D. [id number] Hematocrit (Bld) [Volume fraction] 22.3 % Low 36.0-46.0 [facility] Comment on above: Performed By: #### 4 5218 ####[facility] [address] [place], [place] [address] Glenn Gudino M.D. [id number] Hemoglobin (Bld) [Mass/Vol] 6.9 g/dL Off scale low 12.0-16.0 [facility] Comment on above: Result Comment: Resu lts called and read back verified by:.[id number] Performed By: #### 4 5218 ####[facility] [address] [place] [address] Glenn Gudino M.D. [id number] MCH (RBC) [Entitic mass] 29.6 pg Normal 26.0-34.0 [facility] Comment on above: Performed By: #### 4 5218 ####[facility] [address] [place] [address] Glenn Gudino M.D. [id number] MCV (RBC) [Entitic vol] 95.7 fL Normal 80.0-100.0 [facility] Comment on above: Performed By: #### 4 5218 ####[facility] [address] [place], [place] [address] Glenn Gudino M.D. [id number] MEAN CORPUSCULAR HEMOGLOBIN CONC 30.9 g/dL Low 31.0-37.0 [facility] Comment on above: Performed By: #### 4 5218 ####[facility] [address] [place], [place] [address] Glenn Gudino M.D. [id number] Platelet mean volume (Bld) [Entitic vol] 10.0 fL Normal 9.4-12.4 [facility] Comment on above: Performed By: #### 4 5218 ####[facility] [address] [place], [place] [address] Glenn Gudino M.D. [id number] Platelets (Bld) [#/Vol] 187 10*3/uL Normal 150-400 [facility] Comment on above: Performed By: #### 4 5218 ####[facility] [address] [place] [address] 09321 Glenn Gudino M.D. [id number] RBC (Bld) [#/Vol] 2.33 10*6/uL Low 4.00-5.20 [facility] Comment on above: Performed By: #### 4 5218 ####[facility] [address] [place] [address] Glenn Gudino M.D. [id number] WBC (Bld) [#/Vol] 13.82 10*3/uL High 4.50-11.00 [facility] Comment on above: Performed By: #### 4 5218 ####[facility] [address] [place], [place] [address] Glenn Gudino M.D. [id number] HEMOGLOBIN AND HEMATOCRITon 02-17-2024 Hematocrit (Bld) [Volume fraction] 27.0 % Low 36.0-46.0 [facility] Comment on above: Performed By: #### 4 6909 ####[facility] [address] [place], [place] [address] Glenn Gudino M.D. [id number] Hemoglobin (Bld) [Mass/Vol] 8.5 g/dL Low 12.0-16.0 [facility] Comment on above: Performed By: #### 4 6909 ####[facility] [address] [place] [address] 04618 Glenn Gudino M.D. [id number] MAGNESIUM LEVELon 02-17-2024 Magnesium [Mass/Vol] 2.0 mg/dL Normal 1.6-2.4 [facility] Comment on above: Performed By: #### 4 6109 ####[facility] [address] [place], [place] [address] Glenn Gudino M.D. [id number] POC GLUCOSE - [facility] 024 Glucose [Mass/Vol] 116 mg/dL High 65-99 [facility] Comment on above: Performed By: #### 4 6932 ####[facility] [address] [place] [address] [id number] [facility] Glucose [Mass/Vol] 147 mg/dL High 65-99 [facility] Comment on above: Performed By: #### 4 6932 ####[facility] [address] [place] [address] [id number] [facility] RENAL FUNCTION PANELon 02-16 Albumin [Mass/Vol] 2.1 g/dL Low 3.2-5.2 [facility] Comment on above: Order Comment: [facility] has implemented the eGFR calculation approach that does not have a coefficient for race that conforms to the NKF-ASN Task Force Recommendations. Performed By: #### 4 6449 ####[facility] [address] [place] [address] Glenn Gudino M.D. [id number] Anion gap [Moles/Vol] 12 mmol/L Normal 10-20 [facility] Comment on above: Order Comment: [facility] has implemented the eGFR calculation approach that does not have a coefficient for race that conforms to the NKF-ASN Task Force Recommendations. Performed By: #### 4 6449 ####[facility] [address] [place], [place] [address] Glenn Gudino M.D. [id number] Calcium [Mass/Vol] 7.7 mg/dL Low 8.4-10.2 [facility] Comment on above: Order Comment: [facility] has implemented the eGFR calculation approach that does not have a coefficient for race that conforms to the NKF-ASN Task Force Recommendations. Performed By: #### 4 6449 ####[facility] [address] [place], [place] [address] Glenn Gudino M.D. [id number] Chloride [Moles/Vol] 97 mmol/L Low 98-108 [facility] Comment on above: Order Comment: [facility] has implemented the eGFR calculation approach that does not have a coefficient for race that conforms to the NKF-ASN Task Force Recommendations. Performed By: #### 4 6449 ####[facility] [address] [place], [place] [address] Glenn Gudino M.D. [id number] Creatinine [Mass/Vol] 2.06 mg/dL High 0.60-1.10 [facility] Comment on above: Order Comment: [facility] has implemented the eGFR calculation approach that does not have a coefficient for race that conforms to the NKF-ASN Task Force Recommendations. Performed By: #### 4 6449 ####[facility] [address] [place], [place] [address] Glenn Gudino M.D. [id number] EGFR 27 mL/min/1.73 m2 Low >=60 [facility] Comment on above: Order Comment: [facility] has implemented the eGFR calculation approach that does not have a coefficient for race that conforms to the NKF-ASN Task Force Recommendations. Result Comment: Joi mated GFR was calculated using the 2020 CKD-EPI creatinine equation. Performed By: #### 4 6449 ####[facility] [address] [place], [place] [address] Glenn Gudino M.D. [id number] Glucose [Mass/Vol] 145 mg/dL High 65-99 [facility] Comment on above: Order Comment: [facility] has implemented the eGFR calculation approach that does not have a coefficient for race that conforms to the NKF-ASN Task Force Recommendations. Performed By: #### 4 6449 ####[facility] [address] [place] [address] 92931 Glenn Gudino M.D. [id number] HCO3 (Bld) [Moles/Vol] 28 mmol/L Normal 21-32 [facility] Comment on above: Order Comment: [facility] has implemented the eGFR calculation approach that does not have a coefficient for race that conforms to the NKF-ASN Task Force Recommendations. Performed By: #### 4 6449 ####[facility] [address] [place] [address] 35244 Glenn Gudino M.D. [id number] Phosphate [Mass/Vol] 3.6 mg/dL Normal 2.8-4.1 [facility] Comment on above: Order Comment: [facility] has implemented the eGFR calculation approach that does not have a coefficient for race that conforms to the NKF-ASN Task Force Recommendations. Performed By: #### 4 6449 ####[facility] [address] [place], [place] [address] Glenn Gudino M.D. [id number] Potassium [Moles/Vol] 5.4 mmol/L High 3.5-5.1 [facility] Comment on above: Order Comment: [facility] has implemented the eGFR calculation approach that does not have a coefficient for race that conforms to the NKF-ASN Task Force Recommendations. Performed By: #### 4 6449 ####[facility] [address] [place], [place] [address] Glenn Gudino M.D. [id number] Sodium [Moles/Vol] 132 mmol/L Low 135-145 [facility] Comment on above: Order Comment: [facility] has implemented the eGFR calculation approach that does not have a coefficient for race that conforms to the NKF-ASN Task Force Recommendations. Performed By: #### 4 6449 ####[facility] [address] [place] [address] 21897 Glenn Gudino M.D. [id number] Urea nitrogen [Mass/Vol] 43 mg/dL High 8-25 [facility] Comment on above: Order Comment: [facility] has implemented the eGFR calculation approach that does not have a coefficient for race that conforms to the NKF-ASN Task Force Recommendations. Performed By: #### 4 6449 ####[facility] [address] [place] [address] 38955 Glenn Gudino M.D. [id number] Urea nitrogen/Creatinine [Mass ratio] 20.9 mg/mg High 10.0-20.0 [facility] Comment on above: Order Comment: [facility] has implemented the eGFR calculation approach that does not have a coefficient for race that conforms to the NKF-ASN Task Force Recommendations. Performed By: #### 4 6449 ####[facility] [address] [place], [place] [address] Glenn Gudino M.D. [id number] CALCIUM, IONIZEDon CALCIUM IONIZED 4.8 mg/dL Normal 4.5-5.3 [facility] Comment on above: Order Comment: Serum , non-CRRT source. Performed By: #### 4 5190 ####[facility] [address] [place] [address] 50590 Glenn Gudino M.D. [id number] CALCIUM IONIZED 4.5 mg/dL Normal 4.5-5.3 [facility] Comment on above: Order Comment: Serum , non-CRRT source. Performed By: #### 4 5190 ####[facility] [address] [place] [address] 62714 Glenn Gudino M.D. [id number] CBCon 02-16-2024 AUTO NRBC 0.0 % Normal [facility] Comment on above: Performed By: #### 4 [id number] ####[facility] [address] [place] [address] 98670 Glenn Gudino M.D. [id number] AUTO NRBC ABS COUNT 0.00 K/mcL Normal 0.00-0.00 [facility] Comment on above: Performed By: #### 4 5218 ####[facility] [address] [id number] Glenn Gudino M.D. [id number] Erythrocyte distribution width (RBC) [Ratio] 20.1 % High 11.6-14.8 [facility] Comment on above: Performed By: #### 4 5218 ####[facility] [address] [place] [address] Glenn Gudino M.D. [id number] Hematocrit (Bld) [Volume fraction] 22.6 % Low 36.0-46.0 [facility] Comment on above: Performed By: #### 4 5218 ####[facility] [address] [place] [address] Glenn Gudino M.D. [id number] Hemoglobin (Bld) [Mass/Vol] 7.0 g/dL Low 12.0-16.0 [facility] Comment on above: Performed By: #### 4 5218 ####[facility] [address] [place], [place] [address] Glenn Gudino M.D. [id number] MCH (RBC) [Entitic mass] 28.6 pg Normal 26.0-34.0 [facility] Comment on above: Performed By: #### 4 5218 ####[facility] [address] [place], [place] [address] Glenn Gudino M.D. [id number] MCV (RBC) [Entitic vol] 92.2 fL Normal 80.0-100.0 [facility] Comment on above: Performed By: #### 4 5218 ####[facility] [address] [place], [place] [address] Glenn Gudino M.D. [id number] MEAN CORPUSCULAR HEMOGLOBIN CONC 31.0 g/dL Normal 31.0-37.0 [facility] Comment on above: Performed By: #### 4 4518 ####[facility] [address] [place], [place] [address] Glenn Gudino M.D. [id number] Platelet mean volume (Bld) [Entitic vol] 9.7 fL Normal 9.4-12.4 [facility] Comment on above: Performed By: #### 4 5218 ####[facility] [address] [place] [address] Glenn Gudino M.D. [id number] Platelets (Bld) [#/Vol] 203 10*3/uL Normal 150-400 [facility] Comment on above: Performed By: #### 4 5218 ####[facility] [address] [place] [address] Glenn Gudino M.D. [id number] RBC (Bld) [#/Vol] 2.45 10*6/uL Low 4.00-5.20 [facility] Comment on above: Performed By: #### 4 5218 ####[facility] [address] [place], [place] [address] Glenn Gudino M.D. [id number] WBC (Bld) [#/Vol] 14.40 10*3/uL High 4.50-11.00 [facility] Comment on above: Performed By: #### 4 5218 ####[facility] [address] [place], [place] [address] Glenn Gudino M.D. [id number] AUTO NRBC 0.0 % Normal [facility] Comment on above: Performed By: #### 4 5218 ####[facility] [address] [place], [place] [address] Glenn Gudino M.D. [id number] AUTO NRBC ABS COUNT 0.00 K/mcL Normal 0.00-0.00 [facility] Comment on above: Performed By: #### 4 5218 ####[facility] [address] [place], [place] [address]Karma Gudino M.D. [id number] Erythrocyte distribution width (RBC) [Ratio] 19.9 % High 11.6-14.8 [facility] Comment on above: Performed By: #### 4 5218 ####[facility] [address] [place], [place] [address] Glenn Gudino M.D. [id number] Hematocrit (Bld) [Volume fraction] 14.9 % Low 36.0-46.0 [facility] Comment on above: Result Comment: Repe ated verified Performed By: #### 4 5218 ####[facility] [address] [place] [address] Glenn Gudino M.D. [id number] Hemoglobin (Bld) [Mass/Vol] 4.6 g/dL Off scale low 12.0-16.0 [facility] Comment on above: Result Comment: Resu lts called and read back verified by:[email or web address] [id number] Performed By: #### 4 5218 ####[facility] [address] [place], [place] [address] Glenn Gudino M.D. [id number] MCH (RBC) [Entitic mass] 29.1 pg Normal 26.0-34.0 [facility] Comment on above: Performed By: #### 4 5218 ####[facility] [address] [place], [place] [address] Glenn Gudino M.D. [id number] MCV (RBC) [Entitic vol] 94.3 fL Normal 80.0-100.0 [facility] Comment on above: Performed By: #### 4 5218 ####[facility] [address] [place], [place] [address] Glenn Gudino M.D. [id number] MEAN CORPUSCULAR HEMOGLOBIN CONC 30.9 g/dL Low 31.0-37.0 [facility] Comment on above: Performed By: #### 4 7618 ####[facility] [address] [place] [address] 57895 Glenn Gudino M.D. [id number] Platelet mean volume (Bld) [Entitic vol] 9.5 fL Normal 9.4-12.4 [facility] Comment on above: Performed By: #### 4 5218 ####[facility] [address] [place] [address] 51833 Glenn Gudino M.D. [id number] Platelets (Bld) [#/Vol] 286 10*3/uL Normal 150-400 [facility] Comment on above: Performed By: #### 4 5218 ####[facility] [address] [place] [address] 33061 Glenn Gudino M.D. [id number] RBC (Bld) [#/Vol] 1.58 10*6/uL Low 4.00-5.20 [facility] Comment on above: Performed By: #### 4 5218 ####[facility] [address] [place] [address] 43517 Glenn Gudino M.D. [id number] WBC (Bld) [#/Vol] 21.59 10*3/uL High 4.50-11.00 [facility] Comment on above: Performed By: #### 4 5218 ####[facility] [address] [place] [address] 13093 Glenn Gudino M.D. [id number] HEMOGLOBIN A1Con 02-16-2024 Glucose [Mass/Vol] 103 mg/dL Normal 74-114 [facility] Comment on above: Order Comment: Irina l: 4.2% - 5.6%Increased risk for diabetes: 5.7% - 6.4%Diabetes: >= 6.5%Pediatrics: No established reference rangeEstimated average glucose: 74-114 mg/dL Performed By: #### 4 8202 ####[facility] [address] [place] [address] 33298 Glenn Gudino M.D. [id number] HbA1c (Bld) [Mass fraction] 5.2 % Normal 4.2-5.6 [facility] Comment on above: Order Comment: Irina l: 4.2% - 5.6%Increased risk for diabetes: 5.7% - 6.4%Diabetes: >= 6.5%Pediatrics: No established reference rangeEstimated average glucose: 74-114 mg/dL Performed By: #### 4 8202 ####[facility] [address] [place], [place] [address] Glenn Gudino M.D. [id number] HEMOGLOBIN AND HEMATOCRITon 02-16-2024 Hematocrit (Bld) [Volume fraction] 23.6 % Low 36.0-46.0 [facility] Comment on above: Performed By: #### 4 6909 ####[facility] [address] [place], [place] [address] Glenn Gudino M.D. [id number] Hemoglobin (Bld) [Mass/Vol] 7.5 g/dL Low 12.0-16.0 [facility] Comment on above: Result Comment: Resu lts checked Performed By: #### 4 6909 ####[facility] [address] [place], [place] [address] Glenn Gudino M.D. [id number] MAGNESIUM LEVELon 02-16-2024 Magnesium [Mass/Vol] 1.8 mg/dL Normal 1.6-2.4 [facility] Comment on above: Performed By: #### 4 6109 ####[facility] [address] [place], [place] [address] Glenn Gudino M.D. [id number] Magnesium [Mass/Vol] 1.9 mg/dL Normal 1.6-2.4 [facility] Comment on above: Performed By: #### 4 6109 ####[facility] [address] [place], [place] [address] Glenn Gudino M.D. [id number] POC GLUCOSE [facility] 024 Glucose [Mass/Vol] 110 mg/dL High [address] [place] [address] Comment on above: Performed By: #### 4 6949 ####[facility] [address] [place] [address] [id number] [facility] Glucose [Mass/Vol] 94 mg/dL Normal -[address] [place] [address] Comment on above: Performed By: #### 4 6963 ####[facility] [address] [place] [address] [id number] [facility] Glucose [Mass/Vol] 169 mg/dL High [address] [place] [address] Comment on above: Performed By: #### 4 7557 ####[facility] [address] [place] [address] [id number] [facility] Glucose [Mass/Vol] 64 mg/dL Low [address] [place] [address] Comment on above: Performed By: #### 4 9497 ####[facility] LAB [address] [place] [address] [id number] RMHPOC Glucose [Mass/Vol] 56 mg/dL Low [address] [place] [address] Comment on above: Performed By: #### 4 2506 ####[facility] [address] [place] [address] [id number] RM[facility]OC Glucose [Mass/Vol] 60 mg/dL Low [address] [place] [address] Comment on above: Performed By: #### 4 7424 ####[facility] [address] [place] [address] [id number] RM[facility]OC Glucose [Mass/Vol] 72 mg/dL Normal [address] [place] [address] Comment on above: Performed By: #### 4 0362 ####[facility] [address] [place] [address] [id number] RM[facility]OC Glucose [Mass/Vol] 125 mg/dL High [address] [place] [address] Comment on above: Performed By: #### 4 8734 ####[facility] [address] [place] [id number] RMHPOC Glucose [Mass/Vol] 127 mg/dL High 65- [facility] Comment on above: Performed By: #### 4 6932 ####[facility] [address] [place] [address] [id number] RMHPOC Glucose [Mass/Vol] 113 mg/dL High 65- [facility] Comment on above: Performed By: #### 4 6932 ####[facility] [address] [place] [address] [id number] RMHPOC RENAL FUNCTION PANELon 02-15 Albumin [Mass/Vol] 2.3 g/dL Low 3.2-5.2 [facility] Comment on above: Order Comment: [facility] has implemented the eGFR calculation approach that does not have a coefficient for race that conforms to the NKF-ASN Task Force Recommendations. Performed By: #### 4 6449 ####[facility] [address] [place] [address] Glenn Gudino M.D. [id number] Anion gap [Moles/Vol] 12 mmol/L Normal - [facility] Comment on above: Order Comment: [facility] has implemented the eGFR calculation approach that does not have a coefficient for race that conforms to the NKF-ASN Task Force Recommendations. Performed By: #### 4 6449 ####[facility] [address] [place] [address] Glenn Gudino M.D. [id number] Calcium [Mass/Vol] 8.2 mg/dL Low 8.4-10.2 [facility] Comment on above: Order Comment: [facility] has implemented the eGFR calculation approach that does not have a coefficient for race that conforms to the NKF-ASN Task Force Recommendations. Performed By: #### 4 6449 ####[facility] [address] [place] [address] Glenn Gudino M.D. [id number] Chloride [Moles/Vol] 98 mmol/L Normal 98-108 [facility] Comment on above: Order Comment: [facility] has implemented the eGFR calculation approach that does not have a coefficient for race that conforms to the NKF-ASN Task Force Recommendations. Performed By: #### 4 6449 ####[facility] [address] [place], [place] [address] Glenn Gudino M.D. [id number] Creatinine [Mass/Vol] 1.00 mg/dL Normal 0.60-1.10 [facility] Comment on above: Order Comment: [facility] has implemented the eGFR calculation approach that does not have a coefficient for race that conforms to the NKF-ASN Task Force Recommendations. Performed By: #### 4 6449 ####[facility] [address] [place], [place] [address] Glenn Gudino M.D. [id number] EGFR 64 mL/min/1.73 m2 Normal >=60 [facility] Comment on above: Order Comment: [facility] has implemented the eGFR calculation approach that does not have a coefficient for race that conforms to the NKF-ASN Task Force Recommendations. Result Comment: Joi mated GFR was calculated using the 2020 CKD-EPI creatinine equation. Performed By: #### 4 6449 ####[facility] [address] [place], [place] [address] Glenn Gudino M.D. [id number] Glucose [Mass/Vol] 110 mg/dL High 65-99 [facility] Comment on above: Order Comment: [facility] has implemented the eGFR calculation approach that does not have a coefficient for race that conforms to the NKF-ASN Task Force Recommendations. Performed By: #### 4 6449 ####[facility] [address] [place], [place] [address] Glenn Gudino M.D. [id number] HCO3 (Bld) [Moles/Vol] 29 mmol/L Normal 21-32 [facility] Comment on above: Order Comment: [facility] has implemented the eGFR calculation approach that does not have a coefficient for race that conforms to the NKF-ASN Task Force Recommendations. Performed By: #### 4 6449 ####[facility] [address] [place] [address] Glenn Gudino M.D. [id number] Phosphate [Mass/Vol] 1.0 mg/dL Low 2.8-4.1 [facility] Comment on above: Order Comment: [facility] has implemented the eGFR calculation approach that does not have a coefficient for race that conforms to the NKF-ASN Task Force Recommendations. Performed By: #### 4 6449 ####[facility] [address] [place], [place] [address] Glenn Gudino M.D. [id number] Potassium [Moles/Vol] 3.6 mmol/L Normal 3.5-5.1 [facility] Comment on above: Order Comment: [facility] has implemented the eGFR calculation approach that does not have a coefficient for race that conforms to the NKF-ASN Task Force Recommendations. Performed By: #### 4 6449 ####[facility] [address] [place] [address] Glenn Gudino M.D. [id number] Sodium [Moles/Vol] 135 mmol/L Normal 135-145 [facility] Comment on above: Order Comment: [facility] has implemented the eGFR calculation approach that does not have a coefficient for race that conforms to the NKF-ASN Task Force Recommendations. Performed By: #### 4 6449 ####[facility] [address] [place], [place] [address] Glenn Gudino M.D. [id number] Urea nitrogen [Mass/Vol] 27 mg/dL High 8-25 [facility] Comment on above: Order Comment: [facility] has implemented the eGFR calculation approach that does not have a coefficient for race that conforms to the NKF-ASN Task Force Recommendations. Performed By: #### 4 6449 ####[facility] [address] [place], [place] [address] Glenn Gudino M.D. [id number] Urea nitrogen/Creatinine [Mass ratio] 27.0 mg/mg High 10.0-20.0 [facility] Comment on above: Order Comment: [facility] has implemented the eGFR calculation approach that does not have a coefficient for race that conforms to the NKF-ASN Task Force Recommendations. Performed By: #### 4 6449 ####[facility] [address] [place] [address] Glenn Gudino M.D. [id number] XR CHEST PA/APon 02-16-2024 XR CHEST PA/AP [facility] Comment on above: Order Comment: Injur y/Trauma or Illness?:Illness/OtherHow long have you had these symptoms (acute/chronic)?:AcuteReason for exam?:pneumothoraxHistory of cancer?:uSurgeries, chemotherapy, or radiation?:uType of Exam?:InitialAdditional signs and symptoms?:. ANTIBODY IDENTIFICATION-FYAo n 02-15-2024 ANTIBODY IDENTIFICATION-FYA Normal [facility] Comment on above: Performed By: #### 4 6427_Anti-Fya ####[facility] [address] [place] [address] Nurys Oneill MD [id number] [facility] BASIC METABOLIC PANELon 01-27 Anion gap [Moles/Vol] 13 mmol/L Normal 10-20 [facility] Comment on above: Order Comment: [facility] has implemented the eGFR calculation approach that does not have a coefficient for race that conforms to the NKF-ASN Task Force Recommendations. Performed By: #### 4 6124 ####[facility] [address] [place] [address] Glenn Gudino M.D. [id number] Calcium [Mass/Vol] 7.8 mg/dL Low 8.4-10.2 [facility] Comment on above: Order Comment: [facility] has implemented the eGFR calculation approach that does not have a coefficient for race that conforms to the NKF-ASN Task Force Recommendations. Performed By: #### 4 6124 ####[facility] [address] [place], [place] [address] Glenn Gudino M.D. [id number] Chloride [Moles/Vol] 99 mmol/L Normal 98-108 [facility] Comment on above: Order Comment: [facility] has implemented the eGFR calculation approach that does not have a coefficient for race that conforms to the NKF-ASN Task Force Recommendations. Performed By: #### 4 6124 ####[facility] [address] [place], [place] [address] Glenn Gudino M.D. [id number] Creatinine [Mass/Vol] 1.73 mg/dL High 0.60-1.10 [facility] Comment on above: Order Comment: [facility] has implemented the eGFR calculation approach that does not have a coefficient for race that conforms to the NKF-ASN Task Force Recommendations. Performed By: #### 4 6124 ####[facility] [address] [place] [address] Glenn Gudino M.D. [id number] EGFR 33 mL/min/1.73 m2 Low >=60 [facility] Comment on above: Order Comment: [facility] has implemented the eGFR calculation approach that does not have a coefficient for race that conforms to the NKF-ASN Task Force Recommendations. Result Comment: Joi mated GFR was calculated using the 2020 CKD-EPI creatinine equation. Performed By: #### 4 6124 ####[facility] [address] [place] [address] Glenn Gudino M.D. [id number] Glucose [Mass/Vol] 97 mg/dL Normal 65-99 [facility] Comment on above: Order Comment: [facility] has implemented the eGFR calculation approach that does not have a coefficient for race that conforms to the NKF-ASN Task Force Recommendations. Performed By: #### 4 6124 ####[facility] [address] [place] [address] Glenn Gudino M.D. [id number] HCO3 (Bld) [Moles/Vol] 28 mmol/L Normal 21-32 [facility] Comment on above: Order Comment: [facility] has implemented the eGFR calculation approach that does not have a coefficient for race that conforms to the NKF-ASN Task Force Recommendations. Performed By: #### 4 6124 ####[facility] [address] [place], [place] [address] Glenn Gudino M.D. [id number] Potassium [Moles/Vol] 3.1 mmol/L Low 3.5-5.1 [facility] Comment on above: Order Comment: [facility] has implemented the eGFR calculation approach that does not have a coefficient for race that conforms to the NKF-ASN Task Force Recommendations. Result Comment: Slig htly Hemolyzed Performed By: #### 4 6189 ####[facility] [address] [place], [place] [address] Glenn Gudino M.D. [id number] Sodium [Moles/Vol] 137 mmol/L Normal 135-145 [facility] Comment on above: Order Comment: [facility] has implemented the eGFR calculation approach that does not have a coefficient for race that conforms to the NKF-ASN Task Force Recommendations. Performed By: #### 4 6184 ####[facility] [address] [place] [address] Glenn Gudino M.D. [id number] Urea nitrogen [Mass/Vol] 46 mg/dL High 8-25 [facility] Comment on above: Order Comment: [facility] has implemented the eGFR calculation approach that does not have a coefficient for race that conforms to the NKF-ASN Task Force Recommendations. Performed By: #### 4 6124 ####[facility] [address] [place] [address] Glenn Gudino M.D. [id number] Urea nitrogen/Creatinine [Mass ratio] 26.6 mg/mg High 10.0-20.0 [facility] Comment on above: Order Comment: [facility] has implemented the eGFR calculation approach that does not have a coefficient for race that conforms to the NKF-ASN Task Force Recommendations. Performed By: #### 4 6124 ####[facility] [address] [place] [address] Glenn Gudino M.D. [id number] CALCIUM, IONIZEDon CALCIUM IONIZED 4.7 mg/dL Normal 4.5-5.3 [facility] Comment on above: Order Comment: Serum , non-CRRT source. Performed By: #### 4 5190 ####[facility] [address] [place] [address] Glenn Gudino M.D. [id number] CBCon 02-15-2024 AUTO NRBC 0.0 % Normal [facility] Comment on above: Performed By: #### 4 5218 ####[facility] [address] [place] [address] Glenn Gudino M.D. [id number] AUTO NRBC ABS COUNT 0.00 K/mcL Normal 0.00-0.00 [facility] Comment on above: Performed By: #### 4 [id number] ####[facility] [address] [place] [address] Glenn Gudino M.D. [id number] Erythrocyte distribution width (RBC) [Ratio] 19.5 % High 11.6-14.8 [facility] Comment on above: Performed By: #### 4 5218 ####[facility] [address] [id number] Glenn Gudino M.D. [id number] Hematocrit (Bld) [Volume fraction] 27.0 % Low 36.0-46.0 [facility] Comment on above: Performed By: #### 4 5218 ####[facility] [address] [place] [address] Glenn Gudino M.D. [id number] Hemoglobin (Bld) [Mass/Vol] 8.4 g/dL Low 12.0-16.0 [facility] Comment on above: Performed By: #### 4 5218 ####[facility] [address] [place] [address] Glenn Gudino M.D. [id number] MCH (RBC) [Entitic mass] 29.1 pg Normal 26.0-34.0 [facility] Comment on above: Performed By: #### 4 [id number] ####[facility] [address] [place], [place] [address] Glenn Gudino M.D. [id number] MCV (RBC) [Entitic vol] 93.4 fL Normal 80.0-100.0 [facility] Comment on above: Performed By: #### 4 [id number] ####[facility] [address] [place], [place] [address] Glenn Gudino M.D. [id number] MEAN CORPUSCULAR HEMOGLOBIN CONC 31.1 g/dL Normal 31.0-37.0 [facility] Comment on above: Performed By: #### 4 5218 ####[facility] [address] [place], [place] [address] Glenn Gudino M.D. [id number] Platelet mean volume (Bld) [Entitic vol] 9.5 fL Normal 9.4-12.4 [facility] Comment on above: Performed By: #### 4 5218 ####[facility] [address] [place], [place] [address] Glenn Gudino M.D. [id number] Platelets (Bld) [#/Vol] 288 10*3/uL Normal 150-400 [facility] Comment on above: Performed By: #### 4 [id number] ####[facility] [address] [place] [address] Glenn Gudino M.D. [id number] RBC (Bld) [#/Vol] 2.89 10*6/uL Low 4.00-5.20 [facility] Comment on above: Performed By: #### 4 5218 ####[facility] [address] [place], [place] [address] Glenn Gudino M.D. [id number] WBC (Bld) [#/Vol] 16.69 10*3/uL High 4.50-11.00 [facility] Comment on above: Performed By: #### 4 5218 ####[facility] [address] [place] [address] Glenn Gudino M.D. [id number] MAGNESIUM LEVELon 02-15-2024 Magnesium [Mass/Vol] 2.0 mg/dL Normal 1.6-2.4 [facility] Comment on above: Performed By: #### 4 6109 ####[facility] [address] [place] [address] Glenn Gudino M.D. [id number] POC GLUCOSE [facility] 024 Glucose [Mass/Vol] 113 mg/dL High 65-99 [facility] Comment on above: Performed By: #### 4 6910 ####[facility] [address] [place] [address] [id number] RMOC Glucose [Mass/Vol] 173 mg/dL High 65-99 [facility] Comment on above: Performed By: #### 4 8145 ####[facility] [address] [place] [address] [id number] RMHPOC Glucose [Mass/Vol] 82 mg/dL Normal 65-99 [facility] Comment on above: Performed By: #### 4 6932 ####[facility] [address] [place] [address] [id number] RMHPOC Glucose [Mass/Vol] 50 mg/dL Low 65-99 [facility] Comment on above: Performed By: #### 4 6932 ####[facility] [address] [place] [address] [id number] RM[facility]OC Glucose [Mass/Vol] 99 mg/dL Normal 65-99 [facility] Comment on above: Performed By: #### 4 6932 ####[facility] [address] [place] [address] [id number] RMHPOC Glucose [Mass/Vol] 179 mg/dL High 65-99 [facility] Comment on above: Performed By: #### 4 6932 ####[facility] [address] [place] [address] [id number] RM[facility]OC Glucose [Mass/Vol] 145 mg/dL High 65-99 [facility] Comment on above: Performed By: #### 4 6932 ####[facility] [address] [place] [address] [id number] RMHPOC RENAL FUNCTION PANELon 02-14 Albumin [Mass/Vol] 2.2 g/dL Low 3.2-5.2 [facility] Comment on above: Order Comment: [facility] has implemented the eGFR calculation approach that does not have a coefficient for race that conforms to the NKF-ASN Task Force Recommendations. Performed By: #### 4 6449 ####[facility] [address] [place] [address] Glenn Gudino M.D. [id number] Anion gap [Moles/Vol] 13 mmol/L Normal 10-20 [facility] Comment on above: Order Comment: [facility] has implemented the eGFR calculation approach that does not have a coefficient for race that conforms to the NKF-ASN Task Force Recommendations. Performed By: #### 4 6449 ####[facility] [address] [place] [address] Glenn Gudino M.D. [id number] Calcium [Mass/Vol] 7.9 mg/dL Low 8.4-10.2 [facility] Comment on above: Order Comment: [facility] has implemented the eGFR calculation approach that does not have a coefficient for race that conforms to the NKF-ASN Task Force Recommendations. Performed By: #### 4 6449 ####[facility] [address] [place] [address] Glenn Gudino M.D. [id number] Chloride [Moles/Vol] 101 mmol/L Normal 98-108 [facility] Comment on above: Order Comment: [facility] has implemented the eGFR calculation approach that does not have a coefficient for race that conforms to the NKF-ASN Task Force Recommendations. Performed By: #### 4 6449 ####[facility] [address] [place] [address] Glenn Gudino M.D. [id number] Creatinine [Mass/Vol] 1.60 mg/dL High 0.60-1.10 [facility] Comment on above: Order Comment: [facility] has implemented the eGFR calculation approach that does not have a coefficient for race that conforms to the NKF-ASN Task Force Recommendations. Performed By: #### 4 6449 ####[facility] [address] [place] [address] Glenn Gudino M.D. [id number] EGFR 37 mL/min/1.73 m2 Low >=60 [facility] Comment on above: Order Comment: [facility] has implemented the eGFR calculation approach that does not have a coefficient for race that conforms to the NKF-ASN Task Force Recommendations. Result Comment: Joi mated GFR was calculated using the 2020 CKD-EPI creatinine equation. Performed By: #### 4 6449 ####[facility] [address] [place], [place] [address] Glenn Gudino M.D. [id number] Glucose [Mass/Vol] 95 mg/dL Normal 65-99 [facility] Comment on above: Order Comment: [facility] has implemented the eGFR calculation approach that does not have a coefficient for race that conforms to the NKF-ASN Task Force Recommendations. Performed By: #### 4 6449 ####[facility] [address] [place], [place] [address] Glnen Gudino M.D. [id number] HCO3 (Bld) [Moles/Vol] 27 mmol/L Normal 21-32 [facility] Comment on above: Order Comment: [facility] has implemented the eGFR calculation approach that does not have a coefficient for race that conforms to the NKF-ASN Task Force Recommendations. Performed By: #### 4 6449 ####[facility] [address] [place], [place] [address] Glenn Gudino M.D. [id number] Phosphate [Mass/Vol] 2.1 mg/dL Low 2.8-4.1 [facility] Comment on above: Order Comment: [facility] has implemented the eGFR calculation approach that does not have a coefficient for race that conforms to the NKF-ASN Task Force Recommendations. Performed By: #### 4 6449 ####[facility] [address] [place], [place] [address] Glenn Gudino M.D. [id number] Potassium [Moles/Vol] 2.8 mmol/L Low 3.5-5.1 [facility] Comment on above: Order Comment: [facility] has implemented the eGFR calculation approach that does not have a coefficient for race that conforms to the NKF-ASN Task Force Recommendations. Performed By: #### 4 6449 ####[facility] [address] [place] [address] Glenn Gudino M.D. [id number] Sodium [Moles/Vol] 138 mmol/L Normal 135-145 [facility] Comment on above: Order Comment: [facility] has implemented the eGFR calculation approach that does not have a coefficient for race that conforms to the NKF-ASN Task Force Recommendations. Performed By: #### 4 6449 ####[facility] [address] [place] [address] Glenn Gudino M.D. [id number] Urea nitrogen [Mass/Vol] 44 mg/dL High 8-25 [facility] Comment on above: Order Comment: [facility] has implemented the eGFR calculation approach that does not have a coefficient for race that conforms to the NKF-ASN Task Force Recommendations. Performed By: #### 4 6449 ####[facility] [address] [place] [address] Glenn Gudino M.D. [id number] Urea nitrogen/Creatinine [Mass ratio] 27.5 mg/mg High 10.0-20.0 [facility] Comment on above: Order Comment: [facility] has implemented the eGFR calculation approach that does not have a coefficient for race that conforms to the NKF-ASN Task Force Recommendations. Performed By: #### 4 6449 ####[facility] [address] [place] [address] Glenn Gudino M.D. [id number] TYPE AND SCREENon 02-15-2024 TYPE AND SCREEN ABORH: O Positive AB SCREEN: Positive EXPIRATION DATE: 02/18/2024 23:59 EST Normal [facility] Comment on above: Performed By: #### 4 6619 ####[facility] [address] [place] [address] Nurys Oneill MD [id number] RMHTS XR CHEST PA/APon 02-15-2024 XR CHEST PA/AP Normal [facility] Comment on above: Order Comment: Injur y/Trauma [...] IONIZEDon CALCIUM IONIZED 4.9 mg/dL Normal 4.5-5.3 [facility] Comment on above: Order Comment: Serum , non-CRRT source. Performed By: #### 4 5190 ####[facility] [address] [place] [address] Glenn Gudino M.D. [id number] CBCon 02-14-2024 AUTO NRBC 0.0 % Normal [facility] Comment on above: Performed By: #### 4 [id number] ####[facility] [address] [place], [place] [address] Glenn Gudino M.D. [id number] AUTO NRBC ABS COUNT 0.00 K/mcL Normal 0.00-0.00 [facility] Comment on above: Performed By: #### 4 [id number] ####[facility] [address] [address] [place], [place] [address] Glenn Gudino M.D. [id number] Erythrocyte distribution width (RBC) [Ratio] 20.9 % High 11.6-14.8 [facility] Comment on above: Performed By: #### 4 [id number] ####[facility] [address] [place], [place] [address] Glenn Gudino M.D. [id number] Hematocrit (Bld) [Volume fraction] 23.1 % Low 36.0-46.0 [facility] Comment on above: Performed By: #### 4 [id number] ####[facility] [address] [place] [address] Glenn Gudino M.D. [id number] Hemoglobin (Bld) [Mass/Vol] 6.9 g/dL Off scale low 12.0-16.0 [facility] Comment on above: Result Comment: Resu lts called and read back verified by:.[id number] TO [id number] @ 0621 Performed By: #### 4 [id number] ####[facility] [address] [place] [address] Glenn Gudino M.D. [id number] MCH (RBC) [Entitic mass] 28.4 pg Normal 26.0-34.0 [facility] Comment on above: Performed By: #### 4 [id number] ####[facility] [address] [place], [place] [address] Glenn Gudino M.D. [id number] MCV (RBC) [Entitic vol] 95.1 fL Normal 80.0-100.0 [facility] Comment on above: Performed By: #### 4 [id number] ####[facility] [address] [place], [place] [address] Glenn Gudino M.D. [id number] MEAN CORPUSCULAR HEMOGLOBIN CONC 29.9 g/dL Low 31.0-37.0 [facility] Comment on above: Performed By: #### 4 [id number] ####[facility] [address] [place], [place] [address] Glenn Gudino M.D. [id number] Platelet mean volume (Bld) [Entitic vol] 9.8 fL Normal 9.4-12.4 [facility] Comment on above: Performed By: #### 4 [id number] ####[facility] [address] [place] [address] Glenn Gudino M.D. [id number] Platelets (Bld) [#/Vol] 346 10*3/uL Normal 150-400 [facility] Comment on above: Performed By: #### 4 [id number] ####[facility] [address] [place], [place] [address] Glenn Gudino M.D. [id number] RBC (Bld) [#/Vol] 2.43 10*6/uL Low 4.00-5.20 [facility] Comment on above: Performed By: #### 4 5218 ####[facility] [address] [place] [address] Glenn Gudino M.D. [id number] WBC (Bld) [#/Vol] 21.68 10*3/uL High 4.50-11.00 [facility] Comment on above: Performed By: #### 4 [id number] ####[facility] [address] [place], [place] [address] Glenn Gudino M.D. [id number] MAGNESIUM LEVELon 02-14-2024 Magnesium [Mass/Vol] 2.3 mg/dL Normal 1.6-2.4 [facility] Comment on above: Performed By: #### 4 6109 ####[facility] [address] [place] [address] Glenn Gudino M.D. [id number] POC GLUCOSE [facility] 024 Glucose [Mass/Vol] 245 mg/dL High [address] [place] [address] Comment on above: Performed By: #### 4 6991 ####[facility] [address] [place] [address] [id number] [facility] Glucose [Mass/Vol] 128 mg/dL [address] Comment on above: Performed By: #### 4 6990 ####[facility] [address] [place] [address] [id number] [facility] Glucose [Mass/Vol] 156 mg/dL High 65-99 [facility] Comment on above: Performed By: #### 4 6932 ####[facility] [address] [place] [address] [id number] [facility] Glucose [Mass/Vol] 207 mg/dL High 65- [facility] Comment on above: Performed By: #### 4 6932 ####[facility] [address] [place] [address] [id number] [facility] Glucose [Mass/Vol] 233 mg/dL High [facility] Comment on above: Performed By: #### 4 6932 ####[facility] [address] [place] [address] [id number] [facility] Glucose [Mass/Vol] 179 mg/dL High [facility] Comment on above: Performed By: #### 4 6932 ####[facility] [address] [place] [address] [id number] [facility] Glucose [Mass/Vol] 187 mg/dL High [facility] Comment on above: Performed By: #### 4 6932 ####[facility] [address] [place] [address] [id number] [facility] RENAL FUNCTION PANEL 02-13 Albumin [Mass/Vol] 2.2 g/dL Low 3.2-5.2 [facility] Comment on above: Order Comment: [facility] has implemented the eGFR calculation approach that does not have a coefficient for race that conforms to the NKF-ASN Task Force Recommendations. Performed By: #### 4 6449 ####[facility] [address] [place] [address] Glenn Gudino M.D. [id number] Anion gap [Moles/Vol] 18 mmol/L Normal 10-20 [facility] Comment on above: Order Comment: [facility] has implemented the eGFR calculation approach that does not have a coefficient for race that conforms to the NKF-ASN Task Force Recommendations. Performed By: #### 4 6449 ####[facility] [address] [place] [address] Glenn Gudino M.D. [id number] Calcium [Mass/Vol] 8.4 mg/dL Normal 8.4-10.2 [facility] Comment on above: Order Comment: [facility] has implemented the eGFR calculation approach that does not have a coefficient for race that conforms to the NKF-ASN Task Force Recommendations. Performed By: #### 4 6449 ####[facility] [address] [place] [address] Glenn Gudino M.D. [id number] Chloride [Moles/Vol] 102 mmol/L Normal 98-108 [facility] Comment on above: Order Comment: [facility] has implemented the eGFR calculation approach that does not have a coefficient for race that conforms to the NKF-ASN Task Force Recommendations. Performed By: #### 4 6449 ####[facility] [address] [place] [address] Glenn Gudino M.D. [id number] Creatinine [Mass/Vol] 2.41 mg/dL High 0.60-1.10 [facility] Comment on above: Order Comment: [facility] has implemented the eGFR calculation approach that does not have a coefficient for race that conforms to the NKF-ASN Task Force Recommendations. Performed By: #### 4 6449 ####[facility] [address] [place] [address] Glenn Gudino M.D. [id number] EGFR 22 mL/min/1.73 m2 Low >=60 [facility] Comment on above: Order Comment: [facility] has implemented the eGFR calculation approach that does not have a coefficient for race that conforms to the NKF-ASN Task Force Recommendations. Result Comment: Joi mated GFR was calculated using the 2020 CKD-EPI creatinine equation. Performed By: #### 4 6449 ####[facility] [address] [place], [place] [address] Glenn Gudino M.D. [id number] Glucose [Mass/Vol] 202 mg/dL High 65-99 [facility] Comment on above: Order Comment: [facility] has implemented the eGFR calculation approach that does not have a coefficient for race that conforms to the NKF-ASN Task Force Recommendations. Performed By: #### 4 6449 ####[facility] [address] [place] [address] Glenn Gudino M.D. [id number] HCO3 (Bld) [Moles/Vol] 22 mmol/L Normal 21-32 [facility] Comment on above: Order Comment: [facility] has implemented the eGFR calculation approach that does not have a coefficient for race that conforms to the NKF-ASN Task Force Recommendations. Performed By: #### 4 6449 ####[facility] [address] [place], [place] [address] Glenn Gudino M.D. [id number] Phosphate [Mass/Vol] 4.7 mg/dL High 2.8-4.1 [facility] Comment on above: Order Comment: [facility] has implemented the eGFR calculation approach that does not have a coefficient for race that conforms to the NKF-ASN Task Force Recommendations. Performed By: #### 4 6449 ####[facility] [address] [place], [place] [address] Glenn Gudino M.D. [id number] Potassium [Moles/Vol] 4.0 mmol/L Normal 3.5-5.1 [facility] Comment on above: Order Comment: [facility] has implemented the eGFR calculation approach that does not have a coefficient for race that conforms to the NKF-ASN Task Force Recommendations. Performed By: #### 4 6449 ####[facility] [address] [place] [address] Glenn Gudino M.D. [id number] Sodium [Moles/Vol] 138 mmol/L Normal 135-145 [facility] Comment on above: Order Comment: [facility] has implemented the eGFR calculation approach that does not have a coefficient for race that conforms to the NKF-ASN Task Force Recommendations. Performed By: #### 4 6449 ####[facility] [address] [place] [address] Glenn Gudino M.D. [id number] Urea nitrogen [Mass/Vol] 64 mg/dL High 8-25 [facility] Comment on above: Order Comment: [facility] has implemented the eGFR calculation approach that does not have a coefficient for race that conforms to the NKF-ASN Task Force Recommendations. Performed By: #### 4 6449 ####[facility] [address] [place] [address] Glenn Gudino M.D. [id number] Urea nitrogen/Creatinine [Mass ratio] 26.6 mg/mg High 10.0-20.0 [facility] Comment on above: Order Comment: [facility] has implemented the eGFR calculation approach that does not have a coefficient for race that conforms to the NKF-ASN Task Force Recommendations. Performed By: #### 4 6449 ####[facility] [address] [place] [address] Glenn Gudino M.D. [id number] XR CHEST PA/APon 02-14-2024 XR CHEST PA/AP Normal [facility] Comment on above: Order Comment: Injur y/Trauma or Illness?:Illness/OtherHow long have you had these symptoms (acute/chronic)?:UnknownReason for exam?:chest tube palcement, pneumothoraxHistory of cancer?:uSurgeries, chemotherapy, or radiation?:uType of Exam?:InitialAdditional signs and symptoms?:. CALCIUM, IONIZEDon CALCIUM IONIZED 4.8 mg/dL Normal 4.5-5.3 [facility] Comment on above: Order Comment: Serum , non-CRRT source. Performed By: #### 4 5190 ####[facility] [address] [place], [place] [address] Glenn Gudino M.D. [id number] CBCon 02-13-2024 AUTO NRBC 0.0 % Normal [facility] Comment on above: Performed By: #### 4 [id number] ####[facility] [address] [place] [address] Glenn Gudino M.D. [id number] AUTO NRBC ABS COUNT 0.00 K/mcL Normal 0.00-0.00 [facility] Comment on above: Performed By: #### 4 [id number] ####[facility] [address] [place] [address] Glenn Gudino M.D. [id number] Erythrocyte distribution width (RBC) [Ratio] 19.4 % High 11.6-14.8 [facility] Comment on above: Performed By: #### 4 5218 ####[facility] [address] [place], [place] [address] Glenn Gudino M.D. [id number] Hematocrit (Bld) [Volume fraction] 22.7 % Low 36.0-46.0 [facility] Comment on above: Performed By: #### 4 5218 ####[facility] [address] [place], [place] [address] Glenn Gudino M.D. [id number] Hemoglobin (Bld) [Mass/Vol] 7.0 g/dL Low 12.0-16.0 [facility] Comment on above: Performed By: #### 4 5218 ####[facility] [address] [place], [place] [address] Glenn Gudino M.D. [id number] MCH (RBC) [Entitic mass] 28.6 pg Normal 26.0-34.0 [facility] Comment on above: Performed By: #### 4 [id number] ####[facility] [address] [place] [address] Glenn Gudino M.D. [id number] MCV (RBC) [Entitic vol] 92.7 fL Normal 80.0-100.0 [facility] Comment on above: Performed By: #### 4 5218 ####[facility] [address] [place] [address] Glenn Gudino M.D. [id number] MEAN CORPUSCULAR HEMOGLOBIN CONC 30.8 g/dL Low 31.0-37.0 [facility] Comment on above: Performed By: #### 4 5218 ####[facility] [address] [place] [address] Glenn Gudino M.D. [id number] Platelet mean volume (Bld) [Entitic vol] 9.7 fL Normal 9.4-12.4 [facility] Comment on above: Performed By: #### 4 5218 ####[facility] [address] [place] [address] Glenn Gudino M.D. [id number] Platelets (Bld) [#/Vol] 318 10*3/uL Normal 150-400 [facility] Comment on above: Performed By: #### 4 5218 ####[facility] [address] [place] [address] Glenn Gudino M.D. [id number] RBC (Bld) [#/Vol] 2.45 10*6/uL Low 4.00-5.20 [facility] Comment on above: Performed By: #### 4 5218 ####[facility] [address] [place] [address] Glenn Gudino M.D. [id number] WBC (Bld) [#/Vol] 19.00 10*3/uL High 4.50-11.00 [facility] Comment on above: Result Comment: Left Shift.Peripheral smear reviewed manually Performed By: #### 4 5218 ####[facility] [address] [place] [address] Glenn Gudino M.D. [id number] MAGNESIUM LEVELon 02-13-2024 Magnesium [Mass/Vol] 2.3 mg/dL Normal 1.6-2.4 [facility] Comment on above: Performed By: #### 4 6109 ####[facility] [address] [place] [address] Glenn Gudino M.D. [id number] POC GLUCOSE - [facility] 024 Glucose [Mass/Vol] 202 mg/dL High [address] [place] [address] Comment on above: Performed By: #### 4 6932 ####[facility] [address] [place] [address] [id number] [facility] Glucose [Mass/Vol] 220 mg/dL High [address] [place] [address] Comment on above: Performed By: #### 4 6932 ####[facility] [address] [place] [address] [id number] [facility] Glucose [Mass/Vol] 224 mg/dL High [address] [place] [address] Comment on above: Performed By: #### 4 6995 ####[facility] [address] [place] [address] [id number] [facility] Glucose [Mass/Vol] 179 mg/dL High [address] [place] [address] Comment on above: Performed By: #### 4 9558 ####[facility] [address] [place] [address] [id number] [facility] Glucose [Mass/Vol] 169 mg/dL High [address] [place] [address] Comment on above: Performed By: #### 4 8198 ####[facility] [address] [place] [address] [id number] [facility] RENAL FUNCTION PANELon 02-12 Albumin [Mass/Vol] 2.8 g/dL Low 3.2-5.2 [facility] Comment on above: Order Comment: [facility] has implemented the eGFR calculation approach that does not have a coefficient for race that conforms to the NKF-ASN Task Force Recommendations. Performed By: #### 4 6449 ####[facility] [address] [place], [place] [address] Glenn Gudino M.D. [id number] Anion gap [Moles/Vol] 17 mmol/L Normal 10-20 [facility] Comment on above: Order Comment: [facility] has implemented the eGFR calculation approach that does not have a coefficient for race that conforms to the NKF-ASN Task Force Recommendations. Performed By: #### 4 6449 ####[facility] [address] [place], [place] [address] Glenn Gudino M.D. [id number] Calcium [Mass/Vol] 8.7 mg/dL Normal 8.4-10.2 [facility] Comment on above: Order Comment: [facility] has implemented the eGFR calculation approach that does not have a coefficient for race that conforms to the NKF-ASN Task Force Recommendations. Performed By: #### 4 6449 ####[facility] [address] [place], [place] [address] Glenn Gudino M.D. [id number] Chloride [Moles/Vol] 101 mmol/L Normal 98-108 [facility] Comment on above: Order Comment: [facility] has implemented the eGFR calculation approach that does not have a coefficient for race that conforms to the NKF-ASN Task Force Recommendations. Performed By: #### 4 6449 ####[facility] [address] [place] [address] Glenn Gudino M.D. [id number] Creatinine [Mass/Vol] 1.98 mg/dL High 0.60-1.10 [facility] Comment on above: Order Comment: [facility] has implemented the eGFR calculation approach that does not have a coefficient for race that conforms to the NKF-ASN Task Force Recommendations. Performed By: #### 4 6449 ####[facility] [address] [place] [address] Glenn Gudino M.D. [id number] EGFR 28 mL/min/1.73 m2 Low >=60 [facility] Comment on above: Order Comment: [facility] has implemented the eGFR calculation approach that does not have a coefficient for race that conforms to the NKF-ASN Task Force Recommendations. Result Comment: Joi mated GFR was calculated using the 2020 CKD-EPI creatinine equation. Performed By: #### 4 6449 ####[facility] [address] [place] [address] Glenn Gudino M.D. [id number] Glucose [Mass/Vol] 170 mg/dL High 65-99 [facility] Comment on above: Order Comment: [facility] has implemented the eGFR calculation approach that does not have a coefficient for race that conforms to the NKF-ASN Task Force Recommendations. Performed By: #### 4 6449 ####[facility] [address] [place] [address]648 Glenn Gudino M.D. [id number] HCO3 (Bld) [Moles/Vol] 25 mmol/L Normal 21-32 [facility] Comment on above: Order Comment: [facility] has implemented the eGFR calculation approach that does not have a coefficient for race that conforms to the NKF-ASN Task Force Recommendations. Performed By: #### 4 6449 ####[facility] [address] [place] [address] Glenn Gudino M.D. [id number] Phosphate [Mass/Vol] 4.0 mg/dL Normal 2.8-4.1 [facility] Comment on above: Order Comment: [facility] has implemented the eGFR calculation approach that does not have a coefficient for race that conforms to the NKF-ASN Task Force Recommendations. Performed By: #### 4 6449 ####[facility] [address] [place] [address] Glenn Gudino M.D. [id number] Potassium [Moles/Vol] 4.5 mmol/L Normal 3.5-5.1 [facility] Comment on above: Order Comment: [facility] has implemented the eGFR calculation approach that does not have a coefficient for race that conforms to the NKF-ASN Task Force Recommendations. Performed By: #### 4 6449 ####[facility] [address] [place] [address] Glenn Gudino M.D. [id number] Sodium [Moles/Vol] 138 mmol/L Normal 135-145 [facility] Comment on above: Order Comment: [facility] has implemented the eGFR calculation approach that does not have a coefficient for race that conforms to the NKF-ASN Task Force Recommendations. Performed By: #### 4 6449 ####[facility] [address] [place] [address] Glenn Gudino M.D. [id number] Urea nitrogen [Mass/Vol] 48 mg/dL High 8-25 [facility] Comment on above: Order Comment: [facility] has implemented the eGFR calculation approach that does not have a coefficient for race that conforms to the NKF-ASN Task Force Recommendations. Performed By: #### 4 6449 ####[facility] [address] [place] [address] Glenn Gudino M.D. [id number] Urea nitrogen/Creatinine [Mass ratio] 24.2 mg/mg High 10.0-20.0 [facility] Comment on above: Order Comment: [facility] has implemented the eGFR calculation approach that does not have a coefficient for race that conforms to the NKF-ASN Task Force Recommendations. Performed By: #### 4 6449 ####[facility] [address] [place] [address]87 Glenn Gudino M.D. [id number] XR CHEST PA/APon 02-13-2024 XR CHEST PA/AP Normal [facility] Comment on above: Order Comment: Injur y/Trauma or Illness?:Illness/OtherHow long have you had these symptoms (acute/chronic)?:UnknownReason for exam?:chest tube palcement, pneumothoraxHistory of cancer?:uSurgeries, chemotherapy, or radiation?:uType of Exam?:OngoingAdditional signs and symptoms?:chest tube palcement, pneumothorax ANTIBODY IDENTIFICATION-Con 02-12-2024 ANTIBODY IDENTIFICATION-C Normal [facility] Comment on above: Performed By: #### 4 6427_Anti-C ####[facility] [address] [place] [address] Nurys Oneill MD [id number] [facility] CALCIUM, IONIZEDon CALCIUM IONIZED 4.7 mg/dL Normal 4.5-5.3 [facility] Comment on above: Order Comment: Serum , non-CRRT source. Performed By: #### 4 5190 ####[facility] [address] [place] [address] Glenn Gudino M.D. [id number] CBCon 02-12-2024 AUTO NRBC 0.1 % [facility] Comment on above: Performed By: #### 4 5218 ####[facility] [address] [place], [place] [address] Glenn Gudino M.D. [id number] AUTO NRBC ABS COUNT 0.02 K/mcL High 0.00-0.00 [facility] Comment on above: Performed By: #### 4 5218 ####[facility] [address] [place], [place] [address] Glenn Gudino M.D. [id number] Erythrocyte distribution width (RBC) [Ratio] 19.2 % High 11.6-14.8 [facility] Comment on above: Performed By: #### 4 5218 ####[facility] [address] [place], [place] [address] Glenn Gudino M.D. [id number] Hematocrit (Bld) [Volume fraction] 23.6 % Low 36.0-46.0 [facility] Comment on above: Performed By: #### 4 5218 ####[facility] [address] [place], [place] [address] Glenn Gudino M.D. [id number] Hemoglobin (Bld) [Mass/Vol] 7.3 g/dL Low 12.0-16.0 [facility] Comment on above: Performed By: #### 4 5218 ####[facility] [address] [place], [place] [address] Glenn Gudino M.D. [id number] MCH (RBC) [Entitic mass] 28.6 pg Normal 26.0-34.0 [facility] Comment on above: Performed By: #### 4 5218 ####[facility] [address] [place], [place] [address] Glenn Gudino M.D. [id number] MCV (RBC) [Entitic vol] 92.5 fL Normal 80.0-100.0 [facility] Comment on above: Performed By: #### 4 5218 ####[facility] [address] [place], [place] [address] Glenn Gudino M.D. [id number] MEAN CORPUSCULAR HEMOGLOBIN CONC 30.9 g/dL Low 31.0-37.0 [facility] Comment on above: Performed By: #### 4 5261 ####[facility] [address] [place], [place] [address] Glenn Gudino M.D. [id number] Platelet mean volume (Bld) [Entitic vol] 9.7 fL Normal 9.4-12.4 [facility] Comment on above: Performed By: #### 4 7461 ####[facility] [address] [place] [address]15 Glenn Gudino M.D. [id number] Platelets (Bld) [#/Vol] 317 10*3/uL Normal 150-400 [facility] Comment on above: Performed By: #### 4 [id number] ####[facility] [address] [place] [address]345 Glenn Gudino M.D. [id number] RBC (Bld) [#/Vol] 2.55 10*6/uL Low 4.00-5.20 [facility] Comment on above: Performed By: #### 4 5218 ####[facility] [address] [place] [address]903 Glenn Gudino M.D. [id number] WBC (Bld) [#/Vol] 17.16 10*3/uL High 4.50-11.00 [facility] Comment on above: Performed By: #### 4 [id number] ####[facility] [address] [place] [address] 96560 Glenn Gudino M.D. [id number] COMPREHENSIVE METABOLIC PANE Magdaleno 02-12-2024 Albumin [Mass/Vol] 2.6 g/dL Low 3.2-5.2 [facility] Comment on above: Order Comment: [facility] has implemented the eGFR calculation approach that does not have a coefficient for race that conforms to the NKF-ASN Task Force Recommendations. Performed By: #### 4 6126 ####[facility] [address] [place] [address] 02188 Glenn Gudino M.D. [id number] Performed By: #### 4 6449 ####[facility] [address] [place] [address] 95312 Glenn Gudino M.D. [id number] ALP [Catalytic activity/Vol] 76 U/L Normal 40-150 [facility] Comment on above: Order Comment: [facility] has implemented the eGFR calculation approach that does not have a coefficient for race that conforms to the NKF-ASN Task Force Recommendations. Performed By: #### 4 6126 ####[facility] [address] [place], [place] [address] Glenn Gudino M.D. [id number] ALT [Catalytic activity/Vol] 15 U/L Normal 0-35 U/L [facility] Comment on above: Order Comment: [facility] has implemented the eGFR calculation approach that does not have a coefficient for race that conforms to the NKF-ASN Task Force Recommendations. Performed By: #### 4 6126 ####[facility] [address] [place], [place] [address] Glenn Gudino M.D. [id number] Anion gap [Moles/Vol] 20 mmol/L Normal 10-20 [facility] Comment on above: Order Comment: [facility] has implemented the eGFR calculation approach that does not have a coefficient for race that conforms to the NKF-ASN Task Force Recommendations. Performed By: #### 4 6126 ####[facility] [address] [place], [place] [address] Glenn Gudino M.D. [id number] Performed By: #### 4 6449 ####[facility] [address] [place] [address] 83509 Glenn Gudino M.D. [id number] AST [Catalytic activity/Vol] 32 U/L Normal 0-35 U/L [facility] Comment on above: Order Comment: [facility] has implemented the eGFR calculation approach that does not have a coefficient for race that conforms to the NKF-ASN Task Force Recommendations. Performed By: #### 4 6126 ####[facility] [address] [place], [place] [address] Glenn Gudino M.D. [id number] Bilirubin [Mass/Vol] 0.4 mg/dL Normal 0.0-1.3 [facility] Comment on above: Order Comment: [facility] has implemented the eGFR calculation approach that does not have a coefficient for race that conforms to the NKF-ASN Task Force Recommendations. Performed By: #### 4 6126 ####[facility] [address] [place] [address] Glenn Gudino M.D. [id number] Calcium [Mass/Vol] 8.3 mg/dL Low 8.4-10.2 [facility] Comment on above: Order Comment: [facility] has implemented the eGFR calculation approach that does not have a coefficient for race that conforms to the NKF-ASN Task Force Recommendations. Performed By: #### 4 6126 ####[facility] [address] [place] [address] Glenn Gudino M.D. [id number] Performed By: #### 4 6449 ####[facility] [address] [place] [address] Glenn Gudino M.D. [id number] Chloride [Moles/Vol] 106 mmol/L Normal 98-108 [facility] Comment on above: Order Comment: [facility] has implemented the eGFR calculation approach that does not have a coefficient for race that conforms to the NKF-ASN Task Force Recommendations. Performed By: #### 4 6126 ####[facility] [address] [place] [address] Glenn Gudino M.D. [id number] Performed By: #### 4 6449 ####[facility] [address] [place], [place] [address] Glenn Gudino M.D. [id number] Creatinine [Mass/Vol] 2.81 mg/dL High 0.60-1.10 [facility] Comment on above: Order Comment: [facility] has implemented the eGFR calculation approach that does not have a coefficient for race that conforms to the NKF-ASN Task Force Recommendations. Performed By: #### 4 6126 ####[facility] [address] [place] [address]14 Glenn Gudino M.D. [id number] Performed By: #### 4 6449 ####[facility] [address] [place] [address] 77040 Glenn Gudino M.D. [id number] EGFR 19 mL/min/1.73 m2 Low >=60 [facility] Comment on above: Order Comment: [facility] has implemented the eGFR calculation approach that does not have a coefficient for race that conforms to the NKF-ASN Task Force Recommendations. Result Comment: Joi mated GFR was calculated using the 2020 CKD-EPI creatinine equation. Performed By: #### 4 6126 ####[facility] [address] [place], [place] [address] Glenn Gudino M.D. [id number] Result Comment: Joi mated GFR was calculated using the 2020 CKD-EPI creatinine equation.Estimated GFR was calculated using the 2020 CKD-EPI creatinine equation. Performed By: #### 4 6449 ####[facility] [address] [place] [address] 27495 Glenn Gudino M.D. [id number] Glucose [Mass/Vol] 168 mg/dL High 65-99 [facility] Comment on above: Order Comment: [facility] has implemented the eGFR calculation approach that does not have a coefficient for race that conforms to the NKF-ASN Task Force Recommendations. Performed By: #### 4 6126 ####[facility] [address] [place], [place] [address] Glenn Gudino M.D. [id number] Performed By: #### 4 6449 ####[facility] [address] [place] [address] 99101 Glenn Gudino M.D. [id number] HCO3 (Bld) [Moles/Vol] 19 mmol/L Low 21-32 [facility] Comment on above: Order Comment: [facility] has implemented the eGFR calculation approach that does not have a coefficient for race that conforms to the NKF-ASN Task Force Recommendations. Performed By: #### 4 6126 ####[facility] [address] [place] [address] Glenn uGdino M.D. [id number] Performed By: #### 4 6449 ####[facility] [address] [place], [place] [address] Glenn Gudino M.D. [id number] Potassium [Moles/Vol] 6.0 mmol/L High 3.5-5.1 [facility] Comment on above: Order Comment: [facility] has implemented the eGFR calculation approach that does not have a coefficient for race that conforms to the NKF-ASN Task Force Recommendations. Performed By: #### 4 6126 ####[facility] [address] [place], [place] [address] Glenn Gudino M.D. [id number] Performed By: #### 4 6449 ####[facility] [address] [place], [place] [address] Glenn Gudino M.D. [id number] Protein [Mass/Vol] 6.1 g/dL Normal 6.0-8.0 [facility] Comment on above: Order Comment: [facility] has implemented the eGFR calculation approach that does not have a coefficient for race that conforms to the NKF-ASN Task Force Recommendations. Performed By: #### 4 6126 ####[facility] [address] [place], [place] [address] Glenn Gudino M.D. [id number] Sodium [Moles/Vol] 139 mmol/L Normal 135-145 [facility] Comment on above: Order Comment: [facility] has implemented the eGFR calculation approach that does not have a coefficient for race that conforms to the NKF-ASN Task Force Recommendations. Performed By: #### 4 6126 ####[facility] [address] [place] [address] Glenn Gudnio M.D. [id number] Performed By: #### 4 6449 ####[facility] [address] [place], [place] [address] Glenn Gudino M.D. [id number] Urea nitrogen [Mass/Vol] 74 mg/dL High 8-25 [facility] Comment on above: Order Comment: [facility] has implemented the eGFR calculation approach that does not have a coefficient for race that conforms to the NKF-ASN Task Force Recommendations. Performed By: #### 4 6126 ####[facility] [address] [place] [address] Glenn Gudino M.D. [id number] Performed By: #### 4 6449 ####[facility] [address] [place], [place] [address] Glenn Gudino M.D. [id number] Urea nitrogen/Creatinine [Mass ratio] 26.3 mg/mg High 10.0-20.0 [facility] Comment on above: Order Comment: [facility] has implemented the eGFR calculation approach that does not have a coefficient for race that conforms to the NKF-ASN Task Force Recommendations. Performed By: #### 4 6126 ####[facility] [address] [place], [place] [address] Glenn Gudino M.D. [id number] Performed By: #### 4 6449 ####[facility] [address] [place], [place] [address] Glenn Gudino M.D. [id number] HEPATITIS B CORE ANTIBODY, Franc Doll 02-12-2024 HEPATITIS B CORE TOTAL ANTIBODY Negative Normal Negative [facility] Comment on above: Order Comment: Test performed using [email or web address] ANNALISE immunoassay system Performed By: #### 4 5873 ####[facility] [address] [place] [address] Glenn Gudino M.D. [id number] HEPATITIS B E ANTIGENon 01-27 HEPATITIS BE ANTIGEN Negative Normal Negative [facility] Comment on above: Performed By: #### 4 4083 ####[facility] [address] [place] [address] Glenn Gudino M.D. [id number] HEPATITIS B SURFACE ANTIBODY on 02-12-2024 HEPATITIS B SURFACE ANTIBODY Negative Normal Negative [facility] Comment on above: Order Comment: Test performed using [employer] ANNALISE immunoassay system Performed By: #### 4 5876 ####[facility] [address] [place] [address] Glenn Gudino M.D. [id number] HEPATITIS B SURFACE ANTIGENo n 02-12-2024 HEPATITIS B SURFACE ANTIGEN Negative Normal Negative [facility] Comment on above: Order Comment: Test performed using [employer] ANNALISE immunoassay system Performed By: #### 4 4081 ####[facility] [address] [place] [address] Glenn Gudino M.D. [id number] HEPATITIS BE ANTIBODYon 01-27 HEPATITIS BE ANTIBODY INTERPRETATION Negative Normal Negative [facility] Comment on above: Order Comment: Test performed using [employer] ANNALISE immunoassay system Performed By: #### L [id number] ####[facility] [address] [place], [place] [address] Glenn Gudino M.D. [id number] MAGNESIUM LEVELon 02-12-2024 Magnesium [Mass/Vol] 2.6 mg/dL High 1.6-2.4 [facility] Comment on above: Performed By: #### 4 6109 ####[facility] [address] [place] [address] Glenn Gudino M.D. [id number] POC GLUCOSE - [facility] 024 Glucose [Mass/Vol] 127 mg/dL High 65-99 [facility] Comment on above: Performed By: #### 4 6932 ####[facility] [address] [place] [address] [id number] [facility] Glucose [Mass/Vol] 185 mg/dL High 65-99 [facility] Comment on above: Performed By: #### 4 6932 ####[facility] [address] [place] [address] [id number] [facility] Glucose [Mass/Vol] 257 mg/dL High 65-99 [facility] Comment on above: Performed By: #### 4 6932 ####[facility] [address] [place] [address] [id number] [facility] Glucose [Mass/Vol] 75 mg/dL Normal 65-99 [facility] Comment on above: Performed By: #### 4 6932 ####[facility] [address] [place] [address] [id number] [facility] PREALBUMINon 02-12-2024 Prealbumin [Mass/Vol] 18.3 mg/dL Low 20.0-40.0 [facility] Comment on above: Performed By: #### 4 6355 ####[facility] [address] [place] [address] Glenn Gudino M.D. [id number] RENAL FUNCTION PANELon 02-11 Phosphate [Mass/Vol] 5.4 mg/dL High 2.8-4.1 [facility] Comment on above: Order Comment: [facility] has implemented the eGFR calculation approach that does not have a coefficient for race that conforms to the NKF-ASN Task Force Recommendations. Performed By: #### 4 6449 ####[facility] [address] [place] [address] Glenn Gudino M.D. [id number] TRIGLYCERIDESon 02-12-2024 Triglyceride [Mass/Vol] 150 mg/dL Normal 30-150 [facility] Comment on above: Result Comment: Lucila calles Cholesterol Education Program Guidelines: TriglycerideNormal: <150 mg/dLBorderline High: 150-199 mg/dLHigh: 200-499 mg/dLVery High: greater than or equal to 500 mg/dL Performed By: #### 4 6606 ####[facility] [address] [place] [address] Glenn Gudino M.D. [id number] TYPE AND SCREENon 02-12-2024 TYPE AND SCREEN ABORH: O Positive AB SCREEN: Positive EXPIRATION DATE: 02/15/2024 23:59 EST Normal [facility] Comment on above: Performed By: #### 4 6619 ####[facility] [address] [place] [address] Nurys Oneill MD [id number] RMHTS XR CHEST PA/APon 02-12-2024 XR CHEST PA/AP Normal [facility] Comment on above: Order Comment: Injur y/Trauma or Illness?:Illness/OtherHow long have you had these symptoms (acute/chronic)?:AcuteReason for exam?:chest tube palcement, pneumothoraxHistory of cancer?:uSurgeries, chemotherapy, or radiation?:uType of Exam?:InitialAdditional signs and symptoms?:, CALCIUM, IONIZEDon CALCIUM IONIZED 4.7 mg/dL Normal 4.5-5.3 [facility] Comment on above: Order Comment: Serum , non-CRRT source. Performed By: #### 4 5190 ####[facility] [address] [place] [address] Glenn Gudino M.D. [id number] CBCon 02-11-2024 AUTO NRBC 0.1 % Normal [facility] Comment on above: Performed By: #### 4 [id number] ####[facility] [address] [place] [address] Glenn Gudino M.D. [id number] AUTO NRBC ABS COUNT 0.02 K/mcL High 0.00-0.00 [facility] Comment on above: Performed By: #### 4 [id number] ####[facility] [address] [place], [place] [address] Glenn Gudino M.D. [id number] Erythrocyte distribution width (RBC) [Ratio] 19.1 % High 11.6-14.8 [facility] Comment on above: Performed By: #### 4 [id number] ####[facility] [address] [place] [address] Glenn Gudino M.D. [id number] Hematocrit (Bld) [Volume fraction] 25.0 % Low 36.0-46.0 [facility] Comment on above: Performed By: #### 4 [id number] ####[facility] [address] [place] [address] Glenn Gudino M.D. [id number] Hemoglobin (Bld) [Mass/Vol] 7.8 g/dL Low 12.0-16.0 [facility] Comment on above: Performed By: #### 4 [id number] ####[facility] [address] [place], [place] [address] Glenn Gudino M.D. [id number] MCH (RBC) [Entitic mass] 28.4 pg Normal 26.0-34.0 [facility] Comment on above: Performed By: #### 4 [id number] ####[facility] [address] [place], [place] [address] Glenn Gudino M.D. [id number] MCV (RBC) [Entitic vol] 90.9 fL Normal 80.0-100.0 [facility] Comment on above: Performed By: #### 4 5218 ####[facility] [address] [place], [place] [address] Glenn Gudino M.D. [id number] MEAN CORPUSCULAR HEMOGLOBIN CONC 31.2 g/dL Normal 31.0-37.0 [facility] Comment on above: Performed By: #### 4 5218 ####[facility] [address] [place] [address] 78047 Glenn Gudino M.D. [id number] Platelet mean volume (Bld) [Entitic vol] 9.6 fL Normal 9.4-12.4 [facility] Comment on above: Performed By: #### 4 5218 ####[facility] [address] [place] [address] 97[address] Glenn Gudino M.D. [id number] Platelets (Bld) [#/Vol] 375 10*3/uL Normal 150-400 [facility] Comment on above: Performed By: #### 4 5218 ####[facility] [address] [place] [address] 50980 Glenn Gudino M.D. [id number] RBC (Bld) [#/Vol] 2.75 10*6/uL Low 4.00-5.20 [facility] Comment on above: Performed By: #### 4 5218 ####[facility] [address] [place] [address] 55187 Glenn Gudino M.D. [id number] WBC (Bld) [#/Vol] 17.69 10*3/uL High 4.50-11.00 [facility] Comment on above: Performed By: #### 4 5218 ####[facility] [address] [place] [address] 28918 Glenn Gudino M.D. [id number] MAGNESIUM LEVELon 02-11-2024 Magnesium [Mass/Vol] 2.4 mg/dL Normal 1.6-2.4 [facility] Comment on above: Performed By: #### 4 6109 ####[facility] [address] [place] [address] 79911 Glenn Gudino M.D. [id number] POC GLUCOSE - [facility] 09-15-2 024 Glucose [Mass/Vol] 194 mg/dL High [address] [place] [address] Comment on above: Performed By: #### 4 6992 ####[facility] [address] [place] [address] [id number] [facility] Glucose [Mass/Vol] 138 mg/dL High [address] [place] [address] Comment on above: Performed By: #### 4 6988 ####[facility] [address] [place] [address] [id number] [facility] Glucose [Mass/Vol] 106 mg/dL High [address] [place] [address] Comment on above: Performed By: #### 4 6920 ####[facility] [address] [place] [address] [id number] [facility] Glucose [Mass/Vol] 134 mg/dL [address] Comment on above: Performed By: #### 4 6906 ####[facility] [address] [place] [address] [id number] [facility] Glucose [Mass/Vol] 152 mg/dL [address] Comment on above: Performed By: #### 4 6988 ####[facility] [address] [place] [address] [id number] [facility] Glucose [Mass/Vol] 171 mg/dL [address] Comment on above: Performed By: #### 4 6072 ####[facility] [address] [place] [address] [id number] [facility] Glucose [Mass/Vol] 169 mg/dL [address] Comment on above: Performed By: #### 4 5310 ####[facility] [address] [place] [address] [id number] [facility] RENAL FUNCTION PANELon 02-10 Albumin [Mass/Vol] 2.3 g/dL Low 3.2-5.2 [facility] Comment on above: Order Comment: [facility] has implemented the eGFR calculation approach that does not have a coefficient for race that conforms to the NKF-ASN Task Force Recommendations. Performed By: #### 4 6449 ####[facility] [address] [place] [address] 6[address]37 Glenn Gudino M.D. [id number] Anion gap [Moles/Vol] 17 mmol/L Normal 10-20 [facility] Comment on above: Order Comment: [facility] has implemented the eGFR calculation approach that does not have a coefficient for race that conforms to the NKF-ASN Task Force Recommendations. Performed By: #### 4 6449 ####[facility] [address] [place] [address] 37914 Glenn Gudino M.D. [id number] Calcium [Mass/Vol] 8.0 mg/dL Low 8.4-10.2 [facility] Comment on above: Order Comment: [facility] has implemented the eGFR calculation approach that does not have a coefficient for race that conforms to the NKF-ASN Task Force Recommendations. Performed By: #### 4 6449 ####[facility] [address] [place] [address] Glenn Gudino M.D. [id number] Chloride [Moles/Vol] 103 mmol/L Normal 98-108 [facility] Comment on above: Order Comment: [facility] has implemented the eGFR calculation approach that does not have a coefficient for race that conforms to the NKF-ASN Task Force Recommendations. Performed By: #### 4 6449 ####[facility] [address] [place] [address] 86292 Glenn Gudino M.D. [id number] Creatinine [Mass/Vol] 2.46 mg/dL High 0.60-1.10 [facility] Comment on above: Order Comment: [facility] has implemented the eGFR calculation approach that does not have a coefficient for race that conforms to the NKF-ASN Task Force Recommendations. Performed By: #### 4 6449 ####[facility] [address] [place] [address]57 Glenn Gudino M.D. [id number] EGFR 22 mL/min/1.73 m2 Low >=60 [facility] Comment on above: Order Comment: [facility] has implemented the eGFR calculation approach that does not have a coefficient for race that conforms to the NKF-ASN Task Force Recommendations. Result Comment: Joi mated GFR was calculated using the 2020 CKD-EPI creatinine equation. Performed By: #### 4 6449 ####[facility] [address] [place] [address]137 Glenn Gudino M.D. [id number] Glucose [Mass/Vol] 187 mg/dL High 65-99 [facility] Comment on above: Order Comment: [facility] has implemented the eGFR calculation approach that does not have a coefficient for race that conforms to the NKF-ASN Task Force Recommendations. Performed By: #### 4 6449 ####[facility] [address] [place] [address] 85199 Glenn Gudino M.D. [id number] HCO3 (Bld) [Moles/Vol] 22 mmol/L Normal 21-32 [facility] Comment on above: Order Comment: [facility] has implemented the eGFR calculation approach that does not have a coefficient for race that conforms to the NKF-ASN Task Force Recommendations. Performed By: #### 4 6449 ####[facility] [address] [place] [address]248 Glenn Gudino M.D. [id number] Phosphate [Mass/Vol] 5.2 mg/dL High 2.8-4.1 [facility] Comment on above: Order Comment: [facility] has implemented the eGFR calculation approach that does not have a coefficient for race that conforms to the NKF-ASN Task Force Recommendations. Performed By: #### 4 6449 ####[facility] [address] [place] [address] 82074 Glenn Gudino M.D. [id number] Potassium [Moles/Vol] 5.4 mmol/L High 3.5-5.1 [facility] Comment on above: Order Comment: [facility] has implemented the eGFR calculation approach that does not have a coefficient for race that conforms to the NKF-ASN Task Force Recommendations. Performed By: #### 4 6449 ####[facility] [address] [place] [address] 39740 Glenn Gudino M.D. [id number] Sodium [Moles/Vol] 137 mmol/L Normal 135-145 [facility] Comment on above: Order Comment: [facility] has implemented the eGFR calculation approach that does not have a coefficient for race that conforms to the NKF-ASN Task Force Recommendations. Performed By: #### 4 6449 ####[facility] [address] [place], [place] [address] Glenn Gudino M.D. [id number] Urea nitrogen [Mass/Vol] 57 mg/dL High 8-25 [facility] Comment on above: Order Comment: [facility] has implemented the eGFR calculation approach that does not have a coefficient for race that conforms to the NKF-ASN Task Force Recommendations. Performed By: #### 4 6449 ####[facility] [address] [place] [address] Glenn Gudino M.D. [id number] Urea nitrogen/Creatinine [Mass ratio] 23.2 mg/mg High 10.0-20.0 [facility] Comment on above: Order Comment: [facility] has implemented the eGFR calculation approach that does not have a coefficient for race that conforms to the NKF-ASN Task Force Recommendations. Performed By: #### 4 6449 ####[facility] [address] [place] [address] Glenn Gudino M.D. [id number] XR CHEST PA/APon 02-11-2024 XR CHEST PA/AP Normal [facility] Comment on above: Order Comment: Injur y/Trauma or Illness?:Illness/OtherHow long have you had these symptoms (acute/chronic)?:AcuteReason for exam?:chest tube palcement, pneumothoraxHistory of cancer?:uSurgeries, chemotherapy, or radiation?:uType of Exam?:InitialAdditional signs and symptoms?:. CALCIUM, IONIZEDon CALCIUM IONIZED 4.7 mg/dL Normal 4.5-5.3 [facility] Comment on above: Order Comment: Serum , non-CRRT source. Performed By: #### 4 5190 ####[facility] [address] [place] [address] Glenn Gudino M.D. [id number] CBCon 02-10-2024 AUTO NRBC 0.0 % Normal [facility] Comment on above: Performed By: #### 4 [id number] ####[facility] [address] [place] [address] Glenn Gudino M.D. [id number] AUTO NRBC ABS COUNT 0.00 K/mcL Normal 0.00-0.00 [facility] Comment on above: Performed By: #### 4 [id number] ####[facility] [address] [place], [place] [address] Glenn Gudino M.D. [id number] Erythrocyte distribution width (RBC) [Ratio] 19.4 % High 11.6-14.8 [facility] Comment on above: Performed By: #### 4 [id number] ####[facility] [address] [place], [place] [address] Glenn Gudino M.D. [id number] Hematocrit (Bld) [Volume fraction] 22.9 % Low 36.0-46.0 [facility] Comment on above: Performed By: #### 4 [id number] ####[facility] [address] [place] [address] Glenn Gudino M.D. [id number] Hemoglobin (Bld) [Mass/Vol] 7.4 g/dL Low 12.0-16.0 [facility] Comment on above: Performed By: #### 4 [id number] ####[facility] [address] [place] [address] Glenn Gudino M.D. [id number] MCH (RBC) [Entitic mass] 29.6 pg Normal 26.0-34.0 [facility] Comment on above: Performed By: #### 4 [id number] ####[facility] [address] [place] [address] Glenn Gudino M.D. [id number] MCV (RBC) [Entitic vol] 91.6 fL Normal 80.0-100.0 [facility] Comment on above: Performed By: #### 4 [id number] ####[facility] [address] [place] [address] Glenn Gudino M.D. [id number] MEAN CORPUSCULAR HEMOGLOBIN CONC 32.3 g/dL Normal 31.0-37.0 [facility] Comment on above: Performed By: #### 4 5218 ####[facility] [address] [place], [place] [address] Glenn Gudino M.D. [id number] Platelet mean volume (Bld) [Entitic vol] 9.8 fL Normal 9.4-12.4 [facility] Comment on above: Performed By: #### 4 [id number] ####[facility] [address] [place] [address] Glenn Gudino M.D. [id number] Platelets (Bld) [#/Vol] 323 10*3/uL Normal 150-400 [facility] Comment on above: Performed By: #### 4 [id number] ####[facility] [address] [place] [address] Glenn Gudino M.D. [id number] RBC (Bld) [#/Vol] 2.50 10*6/uL Low 4.00-5.20 [facility] Comment on above: Performed By: #### 4 5218 ####[facility] [address] [place] [address] Glenn Gudino M.D. [id number] WBC (Bld) [#/Vol] 16.68 10*3/uL High 4.50-11.00 [facility] Comment on above: Performed By: #### 4 5218 ####[facility] [address] [place] [address] Glenn Gudino M.D. [id number] MAGNESIUM LEVELon 02-10-2024 Magnesium [Mass/Vol] 2.2 mg/dL Normal 1.6-2.4 [facility] Comment on above: Performed By: #### 4 6109 ####[facility] [address] [place] [address] Glenn Gudino M.D. [id number] POC GLUCOSE [facility] 024 Glucose [Mass/Vol] 197 mg/dL High [address] [place] [address] Comment on above: Performed By: #### 4 5730 ####[facility] [address] [place] [address] [id number] [facility] Glucose [Mass/Vol] 181 mg/dL High [address] [place] [address] Comment on above: Performed By: #### 4 2176 ####[facility] [address] [place] [address] [id number] [facility] Glucose [Mass/Vol] 161 mg/dL [address] Comment on above: Performed By: #### 4 4715 ####[facility] [address] [place] [address] [id number] [facility] Glucose [Mass/Vol] 173 mg/dL High [address] [place] [address] Comment on above: Performed By: #### 4 8612 ####[facility] [address] [place] [address] [id number] [facility] Glucose [Mass/Vol] 198 mg/dL High 65-99 [facility] Comment on above: Performed By: #### 4 6932 ####[facility] [address] [place] [address] [id number] [facility] Glucose [Mass/Vol] 178 mg/dL High 65-99 [facility] Comment on above: Performed By: #### 4 6932 ####[facility] [address] [place] [address] [id number] [facility] RENAL FUNCTION PANELon 02-09 Albumin [Mass/Vol] 2.3 g/dL Low 3.2-5.2 [facility] Comment on above: Order Comment: [facility] has implemented the eGFR calculation approach that does not have a coefficient for race that conforms to the NKF-ASN Task Force Recommendations. Performed By: #### 4 6449 ####[facility] [address] [place] [address] Glenn Gudino M.D. [id number] Anion gap [Moles/Vol] 16 mmol/L Normal 10-20 [facility] Comment on above: Order Comment: [facility] has implemented the eGFR calculation approach that does not have a coefficient for race that conforms to the NKF-ASN Task Force Recommendations. Performed By: #### 4 6449 ####[facility] [address] [place] [address] Glenn Gudino M.D. [id number] Calcium [Mass/Vol] 7.6 mg/dL Low 8.4-10.2 [facility] Comment on above: Order Comment: [facility] has implemented the eGFR calculation approach that does not have a coefficient for race that conforms to the NKF-ASN Task Force Recommendations. Performed By: #### 4 6449 ####[facility] [address] [place] [address] Glenn Gudino M.D. [id number] Chloride [Moles/Vol] 101 mmol/L Normal 98-108 [facility] Comment on above: Order Comment: [facility] has implemented the eGFR calculation approach that does not have a coefficient for race that conforms to the NKF-ASN Task Force Recommendations. Performed By: #### 4 6449 ####[facility] [address] [place], [place] [address] Glenn Gudino M.D. [id number] Creatinine [Mass/Vol] 2.03 mg/dL High 0.60-1.10 [facility] Comment on above: Order Comment: [facility] has implemented the eGFR calculation approach that does not have a coefficient for race that conforms to the NKF-ASN Task Force Recommendations. Performed By: #### 4 6449 ####[facility] [address] [place], [place] [address] Glenn Gudino M.D. [id number] EGFR 27 mL/min/1.73 m2 Low >=60 [facility] Comment on above: Order Comment: [facility] has implemented the eGFR calculation approach that does not have a coefficient for race that conforms to the NKF-ASN Task Force Recommendations. Result Comment: Joi mated GFR was calculated using the 2020 CKD-EPI creatinine equation. Performed By: #### 4 6449 ####[facility] [address] [place], [place] [address] Glenn Gudino M.D. [id number] Glucose [Mass/Vol] 315 mg/dL High 65-99 [facility] Comment on above: Order Comment: [facility] has implemented the eGFR calculation approach that does not have a coefficient for race that conforms to the NKF-ASN Task Force Recommendations. Performed By: #### 4 6449 ####[facility] [address] [place], [place] [address] Glenn Gudino M.D. [id number] HCO3 (Bld) [Moles/Vol] 25 mmol/L Normal 21-32 [facility] Comment on above: Order Comment: [facility] has implemented the eGFR calculation approach that does not have a coefficient for race that conforms to the NKF-ASN Task Force Recommendations. Performed By: #### 4 6449 ####[facility] [address] [place] [address] Glenn Gudino M.D. [id number] Phosphate [Mass/Vol] 4.9 mg/dL High 2.8-4.1 [facility] Comment on above: Order Comment: [facility] has implemented the eGFR calculation approach that does not have a coefficient for race that conforms to the NKF-ASN Task Force Recommendations. Performed By: #### 4 6449 ####[facility] [address] [place], [place] [address] Glenn Gudino M.D. [id number] Potassium [Moles/Vol] 5.6 mmol/L High 3.5-5.1 [facility] Comment on above: Order Comment: [facility] has implemented the eGFR calculation approach that does not have a coefficient for race that conforms to the NKF-ASN Task Force Recommendations. Performed By: #### 4 6449 ####[facility] [address] [place] [address] Glenn Gudino M.D. [id number] Sodium [Moles/Vol] 136 mmol/L Normal 135-145 [facility] Comment on above: Order Comment: [facility] has implemented the eGFR calculation approach that does not have a coefficient for race that conforms to the NKF-ASN Task Force Recommendations. Performed By: #### 4 6449 ####[facility] [address] [place], [place] [address] Glenn Gudino M.D. [id number] Urea nitrogen [Mass/Vol] 40 mg/dL High 8-25 [facility] Comment on above: Order Comment: [facility] has implemented the eGFR calculation approach that does not have a coefficient for race that conforms to the NKF-ASN Task Force Recommendations. Performed By: #### 4 6449 ####[facility] [address] [place] [address] Glenn Gudino M.D. [id number] Urea nitrogen/Creatinine [Mass ratio] 19.7 mg/mg Normal 10.0-20.0 [facility] Comment on above: Order Comment: [facility] has implemented the eGFR calculation approach that does not have a coefficient for race that conforms to the NKF-ASN Task Force Recommendations. Performed By: #### 4 6449 ####[facility] [address] [place] [address] Glenn Gudino M.D. [id number] XR CHEST PA/APon 02-10-2024 XR CHEST PA/AP Normal [facility] Comment on above: Order Comment: Injur y/Trauma or Illness?:Illness/OtherHow long have you had these symptoms (acute/chronic)?:AcuteReason for exam?:chest tube palcement, pneumothoraxHistory of cancer?:uSurgeries, chemotherapy, or radiation?:uType of Exam?:InitialAdditional signs and symptoms?:. ANTIBODY IDENTIFICATION-Con 02-09-2024 ANTIBODY IDENTIFICATION-C Normal [facility] Comment on above: Performed By: #### 4 6427_Anti-C ####[facility] [address] [place] [address] Nurys Oneill MD [id number] [facility] CALCIUM, IONIZEDon CALCIUM IONIZED 4.5 mg/dL Normal 4.5-5.3 [facility] Comment on above: Order Comment: Serum , non-CRRT source. Performed By: #### 4 5190 ####[facility] [address] [place] [address] Glenn Gudino M.D. [id number] CBCon 02-09-2024 AUTO NRBC 0.0 % Normal [facility] Comment on above: Performed By: #### 4 5218 ####[facility] [address] [place], [place] [address] Glenn Gudino M.D. [id number] AUTO NRBC ABS COUNT 0.00 K/mcL Normal 0.00-0.00 [facility] Comment on above: Performed By: #### 4 5218 ####[facility] [address] [place] [address] Glenn Gudino M.D. [id number] Erythrocyte distribution width (RBC) [Ratio] 19.5 % High 11.6-14.8 [facility] Comment on above: Performed By: #### 4 5218 ####[facility] [address] [place] [address] Glenn Gudino M.D. [id number] Hematocrit (Bld) [Volume fraction] 23.4 % Low 36.0-46.0 [facility] Comment on above: Performed By: #### 4 5218 ####[facility] [address] [place], [place] [address] Glenn Gudino M.D. [id number] Hemoglobin (Bld) [Mass/Vol] 7.5 g/dL Low 12.0-16.0 [facility] Comment on above: Performed By: #### 4 5218 ####[facility] [address] [place], [place] [address] Glenn Gudino M.D. [id number] MCH (RBC) [Entitic mass] 29.2 pg Normal 26.0-34.0 [facility] Comment on above: Performed By: #### 4 5218 ####[facility] [address] [place], [place] [address] Glenn Gudino M.D. [id number] MCV (RBC) [Entitic vol] 91.1 fL Normal 80.0-100.0 [facility] Comment on above: Performed By: #### 4 6318 ####[facility] [address] [place] [address] Glenn Gudino M.D. [id number] MEAN CORPUSCULAR HEMOGLOBIN CONC 32.1 g/dL Normal 31.0-37.0 [facility] Comment on above: Performed By: #### 4 5218 ####[facility] [address] [place] [address] 6[address] Glenn Gudino M.D. [id number] Platelet mean volume (Bld) [Entitic vol] 9.6 fL Normal 9.4-12.4 [facility] Comment on above: Performed By: #### 4 5218 ####[facility] [address] [place], [place] [address] Glenn Gudino M.D. [id number] Platelets (Bld) [#/Vol] 281 10*3/uL Normal 150-400 [facility] Comment on above: Performed By: #### 4 5218 ####[facility] [address] [place] [address] Glenn Gudino M.D. [id number] RBC (Bld) [#/Vol] 2.57 10*6/uL Low 4.00-5.20 [facility] Comment on above: Performed By: #### 4 5218 ####[facility] [address] [place] [address] Glenn Gudino M.D. [id number] WBC (Bld) [#/Vol] 11.20 10*3/uL High 4.50-11.00 [facility] Comment on above: Performed By: #### 4 5218 ####[facility] [address] [place] [address] Glenn Gudino M.D. [id number] MAGNESIUM LEVELon 02-09-2024 Magnesium [Mass/Vol] 2.0 mg/dL Normal 1.6-2.4 [facility] Comment on above: Performed By: #### 4 6109 ####[facility] [address] [place] [address] Glenn Gudino M.D. [id number] POC GLUCOSE - [facility] 024 Glucose [Mass/Vol] 198 mg/dL High [address] [place] [address] Comment on above: Performed By: #### 4 6932 ####[facility] [address] [place] [address] [id number] [facility] Glucose [Mass/Vol] 168 mg/dL High [address] [place] [address] Comment on above: Performed By: #### 4 6969 ####[facility] [address] [place] [address] [id number] [facility] Glucose [Mass/Vol] 246 mg/dL [address] Comment on above: Performed By: #### 4 6945 ####[facility] [address] [place] [address] [id number] [facility] Glucose [Mass/Vol] 260 mg/dL [address] Comment on above: Performed By: #### 4 6905 ####[facility] [address] [place] [address] [id number] [facility] Glucose [Mass/Vol] 255 mg/dL [address] Comment on above: Performed By: #### 4 8595 ####[facility] [address] [place] [address] [id number] [facility] Glucose [Mass/Vol] 217 mg/dL [address] Comment on above: Performed By: #### 4 7931 ####[facility] [address] [place] [address] [id number] [facility] RENAL FUNCTION PANELon 02-08 Albumin [Mass/Vol] 2.1 g/dL Low 3.2-5.2 [facility] Comment on above: Order Comment: [facility] has implemented the eGFR calculation approach that does not have a coefficient for race that conforms to the NKF-ASN Task Force Recommendations. Performed By: #### 4 6449 ####[facility] [address] [place] [address] Glenn Gudino M.D. [id number] Anion gap [Moles/Vol] 16 mmol/L Normal 10-20 [facility] Comment on above: Order Comment: [facility] has implemented the eGFR calculation approach that does not have a coefficient for race that conforms to the NKF-ASN Task Force Recommendations. Performed By: #### 4 6449 ####[facility] [address] [place] [address] Glenn Gudino M.D. [id number] Calcium [Mass/Vol] 7.6 mg/dL Low 8.4-10.2 [facility] Comment on above: Order Comment: [facility] has implemented the eGFR calculation approach that does not have a coefficient for race that conforms to the NKF-ASN Task Force Recommendations. Performed By: #### 4 6449 ####[facility] [address] [place] [address] Glenn Gudino M.D. [id number] Chloride [Moles/Vol] 103 mmol/L Normal 98-108 [facility] Comment on above: Order Comment: [facility] has implemented the eGFR calculation approach that does not have a coefficient for race that conforms to the NKF-ASN Task Force Recommendations. Performed By: #### 4 6449 ####[facility] [address] [place] [address] Glenn Gudino M.D. [id number] Creatinine [Mass/Vol] 2.58 mg/dL High 0.60-1.10 [facility] Comment on above: Order Comment: [facility] has implemented the eGFR calculation approach that does not have a coefficient for race that conforms to the NKF-ASN Task Force Recommendations. Performed By: #### 4 6449 ####[facility] [address] [place] [address] Glenn Gudino M.D. [id number] EGFR 21 mL/min/1.73 m2 Low >=60 [facility] Comment on above: Order Comment: [facility] has implemented the eGFR calculation approach that does not have a coefficient for race that conforms to the NKF-ASN Task Force Recommendations. Result Comment: Joi mated GFR was calculated using the 2020 CKD-EPI creatinine equation. Performed By: #### 4 6449 ####[facility] [address] [place] [address] Glenn Gudino M.D. [id number] Glucose [Mass/Vol] 233 mg/dL High 65-99 [facility] Comment on above: Order Comment: [facility] has implemented the eGFR calculation approach that does not have a coefficient for race that conforms to the NKF-ASN Task Force Recommendations. Performed By: #### 4 6449 ####[facility] [address] [place] [address] Glenn Gudino M.D. [id number] HCO3 (Bld) [Moles/Vol] 22 mmol/L Normal 21-32 [facility] Comment on above: Order Comment: [facility] has implemented the eGFR calculation approach that does not have a coefficient for race that conforms to the NKF-ASN Task Force Recommendations. Performed By: #### 4 6449 ####[facility] [address] [place] [address] Glenn Gudino M.D. [id number] Phosphate [Mass/Vol] 4.4 mg/dL High 2.8-4.1 [facility] Comment on above: Order Comment: [facility] has implemented the eGFR calculation approach that does not have a coefficient for race that conforms to the NKF-ASN Task Force Recommendations. Performed By: #### 4 6449 ####[facility] [address] [place] [address] Glenn Gudino M.D. [id number] Potassium [Moles/Vol] 4.8 mmol/L Normal 3.5-5.1 [facility] Comment on above: Order Comment: [facility] has implemented the eGFR calculation approach that does not have a coefficient for race that conforms to the NKF-ASN Task Force Recommendations. Performed By: #### 4 6449 ####[facility] [address] [place] [address] Glenn Gudino M.D. [id number] Sodium [Moles/Vol] 136 mmol/L Normal 135-145 [facility] Comment on above: Order Comment: [facility] has implemented the eGFR calculation approach that does not have a coefficient for race that conforms to the NKF-ASN Task Force Recommendations. Performed By: #### 4 6449 ####[facility] [address] [place], [place] [address] Glenn Gudino M.D. [id number] Urea nitrogen [Mass/Vol] 52 mg/dL High 8-25 [facility] Comment on above: Order Comment: [facility] has implemented the eGFR calculation approach that does not have a coefficient for race that conforms to the NKF-ASN Task Force Recommendations. Performed By: #### 4 6449 ####[facility] [address] [place], [place] [address] Glenn Gudino M.D. [id number] Urea nitrogen/Creatinine [Mass ratio] 20.2 mg/mg High 10.0-20.0 [facility] Comment on above: Order Comment: [facility] has implemented the eGFR calculation approach that does not have a coefficient for race that conforms to the NKF-ASN Task Force Recommendations. Performed By: #### 4 6449 ####[facility] [address] [place] [address] Glenn Gudino M.D. [id number] TYPE AND SCREENon 02-09-2024 TYPE AND SCREEN ABORH: O Positive AB SCREEN: Positive EXPIRATION DATE: 02/12/2024 23:59 EST Normal [facility] Comment on above: Performed By: #### 4 6619 ####[facility] [address] [place] [address] Nurys Oneill MD [id number] RMHTS XR CHEST PA/APon 02-09-2024 XR CHEST PA/AP Normal [facility] Comment on above: Order Comment: Injur y/Trauma or Illness?:Illness/OtherHow long have you had these symptoms (acute/chronic)?:UnknownReason for exam?:chest tube palcement, pneumothoraxHistory of cancer?:uSurgeries, chemotherapy, or radiation?:uType of Exam?:InitialAdditional signs and symptoms?:. CALCIUM, IONIZEDon CALCIUM IONIZED 4.5 mg/dL Normal 4.5-5.3 [facility] Comment on above: Order Comment: Serum , non-CRRT source. Performed By: #### 4 5190 ####[facility] [address] [place], [place] [address] Glenn Gudino M.D. [id number] CBCon 02-08-2024 AUTO NRBC 0.0 % Normal [facility] Comment on above: Performed By: #### 4 5218 ####[facility] [address] [place], [place] [address] Glenn Gudino M.D. [id number] AUTO NRBC ABS COUNT 0.00 K/mcL Normal 0.00-0.00 [facility] Comment on above: Performed By: #### 4 5218 ####[facility] [address] [place], [place] [address] Glenn Gudino M.D. [id number] Erythrocyte distribution width (RBC) [Ratio] 19.3 % High 11.6-14.8 [facility] Comment on above: Performed By: #### 4 5218 ####[facility] [address] [place] [address] Glenn Gudino M.D. [id number] Hematocrit (Bld) [Volume fraction] 22.2 % Low 36.0-46.0 [facility] Comment on above: Performed By: #### 4 5218 ####[facility] [address] [place], [place] [address] Glenn Gudino M.D. [id number] Hemoglobin (Bld) [Mass/Vol] 7.0 g/dL Low 12.0-16.0 [facility] Comment on above: Performed By: #### 4 [id number] ####[facility] [address] [place] [address] Glenn Gudino M.D. [id number] MCH (RBC) [Entitic mass] 29.2 pg Normal 26.0-34.0 [facility] Comment on above: Performed By: #### 4 [id number] ####[facility] [address] [place] [address] Glenn Gudino M.D. [id number] MCV (RBC) [Entitic vol] 92.5 fL Normal 80.0-100.0 [facility] Comment on above: Performed By: #### 4 [id number] ####[facility] [address] [place], [place] [address] Glenn Gudino M.D. [id number] MEAN CORPUSCULAR HEMOGLOBIN CONC 31.5 g/dL Normal 31.0-37.0 [facility] Comment on above: Performed By: #### 4 [id number] ####[facility] [address] [place], [place] [address] Glenn Gudino M.D. [id number] Platelet mean volume (Bld) [Entitic vol] 9.7 fL Normal 9.4-12.4 [facility] Comment on above: Performed By: #### 4 5299 ####[facility] [address] [place] [address] Glenn Gudino M.D. [id number] Platelets (Bld) [#/Vol] 239 10*3/uL Normal 150-400 [facility] Comment on above: Performed By: #### 4 [id number] ####[facility] [address] [place] [address] Glenn Gudino M.D. [id number] RBC (Bld) [#/Vol] 2.40 10*6/uL Low 4.00-5.20 [facility] Comment on above: Performed By: #### 4 [id number] ####[facility] [address] [place], [place] [address] Glenn Gudino M.D. [id number] WBC (Bld) [#/Vol] 11.15 10*3/uL High 4.50-11.00 [facility] Comment on above: Performed By: #### 4 [id number] ####[facility] [address] [place], [place] [address] Glenn Gudino M.D. [id number] CT ANGIOGRAM ABDOMEN PELVISo n 02-08-2024 CT ANGIOGRAM ABDOMEN PELVIS Normal [facility] Comment on above: Order Comment: Injur y/Trauma or Illness?:Illness/OtherHow long have you had these symptoms (acute/chronic)?:AcuteReason for exam?:Retroperitoneal hematoma, follow up, with arterial and venous phase - discussed with Dr. Li...Type of Exam?:Subsequent/Follow-upAdditional signs and symptoms?:Retroperitoneal hematoma, follow up, with arterial and venous phase - discussed with Dr. Li... MAGNESIUM LEVELon 02-08-2024 Magnesium [Mass/Vol] 1.6 mg/dL Normal 1.6-2.4 [facility] Comment on above: Performed By: #### 4 6109 ####[facility] [address] [place] [address] Glenn Gudino M.D. [id number] POC GLUCOSE - [facility] 09-12-2 024 Glucose [Mass/Vol] 208 mg/dL High [address] [place] [address] Comment on above: Performed By: #### 4 6932 ####[facility] [address] [place] [address] [id number] [facility] Glucose [Mass/Vol] 157 mg/dL [address] Comment on above: Performed By: #### 4 6932 ####[facility] [address] [place] [address] [id number] [facility] Glucose [Mass/Vol] 148 mg/dL [address] Comment on above: Performed By: #### 4 6932 ####[facility] [address] [place] [address] [id number] [facility] Glucose [Mass/Vol] 170 mg/dL [address] Comment on above: Performed By: #### 4 6932 ####[facility] [address] [place] [address] [id number] [facility] Glucose [Mass/Vol] 178 mg/dL [address] Comment on above: Performed By: #### 4 6932 ####[facility] [address] [place] [address] [id number] [facility] PT/INRon 02-08-2024 INR Coag (PPP) [Relative time] 1.2 {INR} High 0.8-1.1 [facility] Comment on above: Order Comment: Jennifer retana the induction phase of oral anticoagulation, the INR may not reflect the anticoagulation status of the patient. Therapeutic ranges for INR's are:Most clinical situations: INR 2.0-3.0Mechanical Prosthetic Valve: INR 2.5-3.5Critical: INR >5.0 Performed By: #### 4 6391 ####[facility] [address] [place] [address] Glenn Gudino M.D. [id number] PT Coag (PPP) [Time] 14.7 s High 11.8-14.3 [facility] Comment on above: Order Comment: Jennifer mazin the induction phase of oral anticoagulation, the INR may not reflect the anticoagulation status of the patient. Therapeutic ranges for INR's are:Most clinical situations: INR 2.0-3.0Mechanical Prosthetic Valve: INR 2.5-3.5Critical: INR >5.0 Performed By: #### 4 6391 ####[facility] [address] [place] [address] Glenn Gudino M.D. [id number] RENAL FUNCTION PANELon 02-07 Albumin [Mass/Vol] 2.3 g/dL Low 3.2-5.2 [facility] Comment on above: Order Comment: [facility] has implemented the eGFR calculation approach that does not have a coefficient for race that conforms to the NKF-ASN Task Force Recommendations. Performed By: #### 4 6449 ####[facility] [address] [place], [place] [address] Glenn Gudino M.D. [id number] Anion gap [Moles/Vol] 13 mmol/L Normal 10-20 [facility] Comment on above: Order Comment: [facility] has implemented the eGFR calculation approach that does not have a coefficient for race that conforms to the NKF-ASN Task Force Recommendations. Performed By: #### 4 6449 ####[facility] [address] [place] [address] Glenn Gudino M.D. [id number] Calcium [Mass/Vol] 7.3 mg/dL Low 8.4-10.2 [facility] Comment on above: Order Comment: [facility] has implemented the eGFR calculation approach that does not have a coefficient for race that conforms to the NKF-ASN Task Force Recommendations. Performed By: #### 4 6449 ####[facility] [address] [place] [address] Glenn Gudino M.D. [id number] Chloride [Moles/Vol] 101 mmol/L Normal 98-108 [facility] Comment on above: Order Comment: [facility] has implemented the eGFR calculation approach that does not have a coefficient for race that conforms to the NKF-ASN Task Force Recommendations. Performed By: #### 4 6449 ####[facility] [address] [place], [place] [address] Glenn Gudino M.D. [id number] Creatinine [Mass/Vol] 2.03 mg/dL High 0.60-1.10 [facility] Comment on above: Order Comment: [facility] has implemented the eGFR calculation approach that does not have a coefficient for race that conforms to the NKF-ASN Task Force Recommendations. Performed By: #### 4 6449 ####[facility] [address] [place], [place] [address] Glenn Gudino M.D. [id number] EGFR 27 mL/min/1.73 m2 Low >=60 [facility] Comment on above: Order Comment: [facility] has implemented the eGFR calculation approach that does not have a coefficient for race that conforms to the NKF-ASN Task Force Recommendations. Result Comment: Joi mated GFR was calculated using the 2020 CKD-EPI creatinine equation. Performed By: #### 4 6449 ####[facility] [address] [place] [address] Glenn Gudino M.D. [id number] Glucose [Mass/Vol] 195 mg/dL High 65-99 [facility] Comment on above: Order Comment: [facility] has implemented the eGFR calculation approach that does not have a coefficient for race that conforms to the NKF-ASN Task Force Recommendations. Performed By: #### 4 6449 ####[facility] [address] [place] [address] Glenn Gudino M.D. [id number] HCO3 (Bld) [Moles/Vol] 26 mmol/L Normal 21-32 [facility] Comment on above: Order Comment: [facility] has implemented the eGFR calculation approach that does not have a coefficient for race that conforms to the NKF-ASN Task Force Recommendations. Performed By: #### 4 6449 ####[facility] [address] [place] [address] Glenn Gudino M.D. [id number] Phosphate [Mass/Vol] 2.3 mg/dL Low 2.8-4.1 [facility] Comment on above: Order Comment: [facility] has implemented the eGFR calculation approach that does not have a coefficient for race that conforms to the NKF-ASN Task Force Recommendations. Performed By: #### 4 6449 ####[facility] [address] [place] [address] Glenn Gudino M.D. [id number] Potassium [Moles/Vol] 3.8 mmol/L Normal 3.5-5.1 [facility] Comment on above: Order Comment: [facility] has implemented the eGFR calculation approach that does not have a coefficient for race that conforms to the NKF-ASN Task Force Recommendations. Performed By: #### 4 6449 ####[facility] [address] [place] [address] Glenn Gudino M.D. [id number] Sodium [Moles/Vol] 136 mmol/L Normal 135-145 [facility] Comment on above: Order Comment: [facility] has implemented the eGFR calculation approach that does not have a coefficient for race that conforms to the NKF-ASN Task Force Recommendations. Performed By: #### 4 6449 ####[facility] [address] [place] [address] Glenn Gudino M.D. [id number] Urea nitrogen [Mass/Vol] 33 mg/dL High 8-25 [facility] Comment on above: Order Comment: [facility] has implemented the eGFR calculation approach that does not have a coefficient for race that conforms to the NKF-ASN Task Force Recommendations. Performed By: #### 4 6449 ####[facility] [address] [place] [address] Glenn Gudino M.D. [id number] Urea nitrogen/Creatinine [Mass ratio] 16.3 mg/mg Normal 10.0-20.0 [facility] Comment on above: Order Comment: [facility] has implemented the eGFR calculation approach that does not have a coefficient for race that conforms to the NKF-ASN Task Force Recommendations. Performed By: #### 4 6449 ####[facility] [address] [place] [address] Glenn Gudino M.D. [id number] XR CHEST PA/APon 02-08-2024 XR CHEST PA/AP Normal [facility] Comment on above: Order Comment: Injur y/Trauma or Illness?:Illness/OtherHow long have you had these symptoms (acute/chronic)?:AcuteReason for exam?:chest tube palcement, pneumothoraxHistory of cancer?:uSurgeries, chemotherapy, or radiation?:uType of Exam?:OngoingAdditional signs and symptoms?:chest tube palcement, pneumothorax CALCIUM, IONIZEDon CALCIUM IONIZED 4.6 mg/dL Normal 4.5-5.3 [facility] Comment on above: Order Comment: Serum , non-CRRT source. Performed By: #### 4 5190 ####[facility] [address] [place] [address] Glenn Gudino M.D. [id number] CBCon 02-07-2024 AUTO NRBC 0.0 % Normal [facility] Comment on above: Performed By: #### 4 [id number] ####[facility] [address] [place] [address] Glenn Gudino M.D. [id number] AUTO NRBC ABS COUNT 0.00 K/mcL Normal 0.00-0.00 [facility] Comment on above: Performed By: #### 4 [id number] ####[facility] [address] [place], [place] [address] Glenn Gudino M.D. [id number] Erythrocyte distribution width (RBC) [Ratio] 18.7 % High 11.6-14.8 [facility] Comment on above: Performed By: #### 4 [id number] ####[facility] [address] [place] [address] Glenn Gudino M.D. [id number] Hematocrit (Bld) [Volume fraction] 24.3 % Low 36.0-46.0 [facility] Comment on above: Performed By: #### 4 [id number] ####[facility] [address] [place], [place] [address] Glenn Gudino M.D. [id number] Hemoglobin (Bld) [Mass/Vol] 7.7 g/dL Low 12.0-16.0 [facility] Comment on above: Performed By: #### 4 2118 ####[facility] [address] [place], [place] [address] Glenn Gudino M.D. [id number] MCH (RBC) [Entitic mass] 29.1 pg Normal 26.0-34.0 [facility] Comment on above: Performed By: #### 4 [id number] ####[facility] [address] [place], [place] [address] Glenn Gudino M.D. [id number] MCV (RBC) [Entitic vol] 91.7 fL Normal 80.0-100.0 [facility] Comment on above: Performed By: #### 4 2718 ####[facility] [address] [place], [place] [address] Glenn Gudino M.D. [id number] MEAN CORPUSCULAR HEMOGLOBIN CONC 31.7 g/dL Normal 31.0-37.0 [facility] Comment on above: Performed By: #### 4 6118 ####[facility] [address] [place] [address] Glenn Gudino M.D. [id number] Platelet mean volume (Bld) [Entitic vol] 9.6 fL Normal 9.4-12.4 [facility] Comment on above: Performed By: #### 4 [id number] ####[facility] [address] [place] [address] Glenn Gudino M.D. [id number] Platelets (Bld) [#/Vol] 229 10*3/uL Normal 150-400 [facility] Comment on above: Performed By: #### 4 [id number] ####[facility] [address] [place], [place] [address] Glenn Gudino M.D. [id number] RBC (Bld) [#/Vol] 2.65 10*6/uL Low 4.00-5.20 [facility] Comment on above: Performed By: #### 4 5218 ####[facility] [address] [place], [place] [address] Glenn Gudino M.D. [id number] WBC (Bld) [#/Vol] 13.25 10*3/uL High 4.50-11.00 [facility] Comment on above: Performed By: #### 4 [id number] ####[facility] [address] [place], [place] [address] Glenn Gudino M.D. [id number] CONSULTon 02-07-2024 CONSULT Normal [facility] CV IR EMBOLIZATION (NON-NEUR O) (SPECIFY LOCATION)on 02-07-2024 CV IR EMBOLIZATION (NON-NEURO) (SPECIFY LOCATION) Normal [facility] CV IR LYMPHANGIOGRAMon 02-06 CV IR LYMPHANGIOGRAM Normal [facility] MAGNESIUM LEVELon 02-07-2024 Magnesium [Mass/Vol] 1.8 mg/dL Normal 1.6-2.4 [facility] Comment on above: Performed By: #### 4 6109 ####[facility] [address] [place] [address] Glenn Gudino M.D. [id number] POC GLUCOSE - [facility] 024 Glucose [Mass/Vol] 210 mg/dL High [address] [place] [address] Comment on above: Performed By: #### 4 6932 ####[facility] [address] [place] [address] [id number] [facility] Glucose [Mass/Vol] 135 mg/dL High [address] [place] [address] Comment on above: Performed By: #### 4 6932 ####[facility] [address] [place] [address] [id number] [facility] Glucose [Mass/Vol] 186 mg/dL [address] Comment on above: Performed By: #### 4 6932 ####[facility] [address] [place] [address] [id number] [facility] Glucose [Mass/Vol] 166 mg/dL [address] Comment on above: Performed By: #### 4 6932 ####[facility] [address] [place] [address] [id number] [facility] Glucose [Mass/Vol] 163 mg/dL [address] Comment on above: Performed By: #### 4 6932 ####[facility] [address] [place] [address] [id number] [facility] RENAL FUNCTION PANEL 02-06 Albumin [Mass/Vol] 2.6 g/dL Low 3.2-5.2 [facility] Comment on above: Order Comment: [facility] has implemented the eGFR calculation approach that does not have a coefficient for race that conforms to the NKF-ASN Task Force Recommendations. Performed By: #### 4 6449 ####[facility] [address] [place] [address] Glenn Gudino M.D. [id number] Anion gap [Moles/Vol] 15 mmol/L Normal 10-20 [facility] Comment on above: Order Comment: [facility] has implemented the eGFR calculation approach that does not have a coefficient for race that conforms to the NKF-ASN Task Force Recommendations. Performed By: #### 4 6449 ####[facility] [address] [place] [address] Glenn Gudino M.D. [id number] Calcium [Mass/Vol] 7.7 mg/dL Low 8.4-10.2 [facility] Comment on above: Order Comment: [facility] has implemented the eGFR calculation approach that does not have a coefficient for race that conforms to the NKF-ASN Task Force Recommendations. Performed By: #### 4 6449 ####[facility] [address] [place] [address] Glenn Gudino M.D. [id number] Chloride [Moles/Vol] 99 mmol/L Normal 98-108 [facility] Comment on above: Order Comment: [facility] has implemented the eGFR calculation approach that does not have a coefficient for race that conforms to the NKF-ASN Task Force Recommendations. Performed By: #### 4 6449 ####[facility] [address] [place] [address] Glenn Gudino M.D. [id number] Creatinine [Mass/Vol] 2.72 mg/dL High 0.60-1.10 [facility] Comment on above: Order Comment: [facility] has implemented the eGFR calculation approach that does not have a coefficient for race that conforms to the NKF-ASN Task Force Recommendations. Performed By: #### 4 6449 ####[facility] [address] [place] [address] Glenn Gudino M.D. [id number] EGFR 19 mL/min/1.73 m2 Low >=60 [facility] Comment on above: Order Comment: [facility] has implemented the eGFR calculation approach that does not have a coefficient for race that conforms to the NKF-ASN Task Force Recommendations. Result Comment: Joi mated GFR was calculated using the 2020 CKD-EPI creatinine equation. Performed By: #### 4 6449 ####[facility] [address] [place], [place] [address] Glenn Gudino M.D. [id number] Glucose [Mass/Vol] 161 mg/dL High 65-99 [facility] Comment on above: Order Comment: [facility] has implemented the eGFR calculation approach that does not have a coefficient for race that conforms to the NKF-ASN Task Force Recommendations. Performed By: #### 4 6449 ####[facility] [address] [place], [place] [address] Glenn Gudino M.D. [id number] HCO3 (Bld) [Moles/Vol] 26 mmol/L Normal 21-32 [facility] Comment on above: Order Comment: [facility] has implemented the eGFR calculation approach that does not have a coefficient for race that conforms to the NKF-ASN Task Force Recommendations. Performed By: #### 4 6449 ####[facility] [address] [place] [address] Glenn Gudino M.D. [id number] Phosphate [Mass/Vol] 2.1 mg/dL Low 2.8-4.1 [facility] Comment on above: Order Comment: [facility] has implemented the eGFR calculation approach that does not have a coefficient for race that conforms to the NKF-ASN Task Force Recommendations. Performed By: #### 4 6449 ####[facility] [address] [place] [address] Glenn Gudino M.D. [id number] Potassium [Moles/Vol] 3.9 mmol/L Normal 3.5-5.1 [facility] Comment on above: Order Comment: [facility] has implemented the eGFR calculation approach that does not have a coefficient for race that conforms to the NKF-ASN Task Force Recommendations. Result Comment: Slig htly Hemolyzed Performed By: #### 4 6449 ####[facility] [address] [place] [address] Glenn Gudino M.D. [id number] Sodium [Moles/Vol] 136 mmol/L Normal 135-145 [facility] Comment on above: Order Comment: [facility] has implemented the eGFR calculation approach that does not have a coefficient for race that conforms to the NKF-ASN Task Force Recommendations. Performed By: #### 4 6449 ####[facility] [address] [place] [address] Glenn Gudino M.D. [id number] Urea nitrogen [Mass/Vol] 42 mg/dL High 8-25 [facility] Comment on above: Order Comment: [facility] has implemented the eGFR calculation approach that does not have a coefficient for race that conforms to the NKF-ASN Task Force Recommendations. Performed By: #### 4 6449 ####[facility] [address] [place] [address] Glenn Gudino M.D. [id number] Urea nitrogen/Creatinine [Mass ratio] 15.4 mg/mg Normal 10.0-20.0 [facility] Comment on above: Order Comment: [facility] has implemented the eGFR calculation approach that does not have a coefficient for race that conforms to the NKF-ASN Task Force Recommendations. Performed By: #### 4 6449 ####[facility] [address] [place] [address] Glenn Gudino M.D. [id number] XR CHEST PA/APon 02-07-2024 XR CHEST PA/AP Normal [facility] Comment on above: Order Comment: Injur y/Trauma or Illness?:Illness/OtherHow long have you had these symptoms (acute/chronic)?:AcuteReason for exam?:chest tube palcement, pneumothoraxHistory of cancer?:uSurgeries, chemotherapy, or radiation?:uType of Exam?:InitialAdditional signs and symptoms?:. ANTIBODY IDENTIFICATION-Con 02-06-2024 ANTIBODY IDENTIFICATION-C Normal [facility] Comment on above: Performed By: #### 4 6427_Anti-C ####[facility] [address] [place] [address] Nurys Oneill MD [id number] RMS CALCIUM, IONIZEDon CALCIUM IONIZED 4.6 mg/dL Normal 4.5-5.3 [facility] Comment on above: Order Comment: Serum , non-CRRT source. Performed By: #### 4 5190 ####[facility] [address] [place] [address] Glenn Gudino M.D. [id number] CBCon 02-06-2024 AUTO NRBC 0.0 % Normal [facility] Comment on above: Performed By: #### 4 [id number] ####[facility] [address] [place] [address] Glenn Gudino M.D. [id number] AUTO NRBC ABS COUNT 0.00 K/mcL Normal 0.00-0.00 [facility] Comment on above: Performed By: #### 4 [id number] ####[facility] [address] [place], [place] [address] Glenn Gudino M.D. [id number] Erythrocyte distribution width (RBC) [Ratio] 18.5 % High 11.6-14.8 [facility] Comment on above: Performed By: #### 4 [id number] ####[facility] [address] [place], [place] [address] Glenn Gudino M.D. [id number] Hematocrit (Bld) [Volume fraction] 24.0 % Low 36.0-46.0 [facility] Comment on above: Performed By: #### 4 [id number] ####[facility] [address] [place], [place] [address] Glenn Gudino M.D. [id number] Hemoglobin (Bld) [Mass/Vol] 7.5 g/dL Low 12.0-16.0 [facility] Comment on above: Performed By: #### 4 5218 ####[facility] [address] [place], [place] [address] Glenn Gudino M.D. [id number] MCH (RBC) [Entitic mass] 28.4 pg Normal 26.0-34.0 [facility] Comment on above: Performed By: #### 4 [id number] ####[facility] [address] [place] [address] Glenn Gudino M.D. [id number] MCV (RBC) [Entitic vol] 90.9 fL Normal 80.0-100.0 [facility] Comment on above: Performed By: #### 4 [id number] ####[facility] [address] [place] [address] Glenn Gudino M.D. [id number] MEAN CORPUSCULAR HEMOGLOBIN CONC 31.3 g/dL Normal 31.0-37.0 [facility] Comment on above: Performed By: #### 4 [id number] ####[facility] [address] [place], [place] [address] Glenn Gudino M.D. [id number] Platelet mean volume (Bld) [Entitic vol] 10.2 fL Normal 9.4-12.4 [facility] Comment on above: Performed By: #### 4 [id number] ####[facility] [address] [place], [place] [address] Glenn Gudino M.D. [id number] Platelets (Bld) [#/Vol] 197 10*3/uL Normal 150-400 [facility] Comment on above: Performed By: #### 4 [id number] ####[facility] [address] [place] [address] Glenn Gudino M.D. [id number] RBC (Bld) [#/Vol] 2.64 10*6/uL Low 4.00-5.20 [facility] Comment on above: Performed By: #### 4 [id number] ####[facility] [address] [place], [place] [address] Glenn Gudino M.D. [id number] WBC (Bld) [#/Vol] 11.41 10*3/uL High 4.50-11.00 [facility] Comment on above: Performed By: #### 4 [id number] ####[facility] [address] [place] [address] Glenn Gudino M.D. [id number] MAGNESIUM LEVELon 02-06-2024 Magnesium [Mass/Vol] 1.9 mg/dL Normal 1.6-2.4 [facility] Comment on above: Performed By: #### 4 6109 ####[facility] [address] [place] [address] Glenn Gudino M.D. [id number] POC GLUCOSE [facility] 024 Glucose [Mass/Vol] 156 mg/dL [address] Comment on above: Performed By: #### 4 6932 ####[facility] [address] [place] [address] [id number] [facility] Glucose [Mass/Vol] 135 mg/dL [address] Comment on above: Performed By: #### 4 7996 ####[facility] [address] [place] [address] [id number] [facility] Glucose [Mass/Vol] 150 mg/dL [address] Comment on above: Performed By: #### 4 4397 ####[facility] [address] [place] [address] [id number] [facility] Glucose [Mass/Vol] 196 mg/dL [address] Comment on above: Performed By: #### 4 6932 ####[facility] [address] [place] [address] [id number] [facility] Glucose [Mass/Vol] 176 mg/dL High 65-99 [facility] Comment on above: Performed By: #### 4 6932 ####[facility] [address] [place] [address] [id number] [facility] Glucose [Mass/Vol] 161 mg/dL High 65-99 [facility] Comment on above: Performed By: #### 4 6932 ####[facility] [address] [place] [address] [id number] [facility] RENAL FUNCTION PANELon 02-05 Albumin [Mass/Vol] 2.5 g/dL Low 3.2-5.2 [facility] Comment on above: Order Comment: [facility] has implemented the eGFR calculation approach that does not have a coefficient for race that conforms to the NKF-ASN Task Force Recommendations. Performed By: #### 4 6449 ####[facility] [address] [place] [address] Glenn Gudino M.D. [id number] Anion gap [Moles/Vol] 12 mmol/L Normal 10-20 [facility] Comment on above: Order Comment: [facility] has implemented the eGFR calculation approach that does not have a coefficient for race that conforms to the NKF-ASN Task Force Recommendations. Performed By: #### 4 6449 ####[facility] [address] [place] [address] Glenn Gudino M.D. [id number] Calcium [Mass/Vol] 7.8 mg/dL Low 8.4-10.2 [facility] Comment on above: Order Comment: [facility] has implemented the eGFR calculation approach that does not have a coefficient for race that conforms to the NKF-ASN Task Force Recommendations. Performed By: #### 4 6449 ####[facility] [address] [place] [address] Glenn Gudino M.D. [id number] Chloride [Moles/Vol] 97 mmol/L Low 98-108 [facility] Comment on above: Order Comment: [facility] has implemented the eGFR calculation approach that does not have a coefficient for race that conforms to the NKF-ASN Task Force Recommendations. Performed By: #### 4 6449 ####[facility] [address] [place], [place] [address] Glenn Gudino M.D. [id number] Creatinine [Mass/Vol] 1.97 mg/dL High 0.60-1.10 [facility] Comment on above: Order Comment: [facility] has implemented the eGFR calculation approach that does not have a coefficient for race that conforms to the NKF-ASN Task Force Recommendations. Performed By: #### 4 6449 ####[facility] [address] [place], [place] [address] Glenn Gudino M.D. [id number] EGFR 28 mL/min/1.73 m2 Low >=60 [facility] Comment on above: Order Comment: [facility] has implemented the eGFR calculation approach that does not have a coefficient for race that conforms to the NKF-ASN Task Force Recommendations. Result Comment: Joi mated GFR was calculated using the 2020 CKD-EPI creatinine equation. Performed By: #### 4 6449 ####[facility] [address] [place], [place] [address] Glenn Gudino M.D. [id number] Glucose [Mass/Vol] 143 mg/dL High 65-99 [facility] Comment on above: Order Comment: [facility] has implemented the eGFR calculation approach that does not have a coefficient for race that conforms to the NKF-ASN Task Force Recommendations. Performed By: #### 4 6449 ####[facility] [address] [place] [address] Glenn Gudino M.D. [id number] HCO3 (Bld) [Moles/Vol] 28 mmol/L Normal 21-32 [facility] Comment on above: Order Comment: [facility] has implemented the eGFR calculation approach that does not have a coefficient for race that conforms to the NKF-ASN Task Force Recommendations. Performed By: #### 4 6449 ####[facility] [address] [place], [place] [address] Glenn Gudino M.D. [id number] Phosphate [Mass/Vol] 1.7 mg/dL Low 2.8-4.1 [facility] Comment on above: Order Comment: [facility] has implemented the eGFR calculation approach that does not have a coefficient for race that conforms to the NKF-ASN Task Force Recommendations. Performed By: #### 4 6449 ####[facility] [address] [place], [place] [address] Glenn Gudino M.D. [id number] Potassium [Moles/Vol] 3.5 mmol/L Normal 3.5-5.1 [facility] Comment on above: Order Comment: [facility] has implemented the eGFR calculation approach that does not have a coefficient for race that conforms to the NKF-ASN Task Force Recommendations. Performed By: #### 4 6449 ####[facility] [address] [place], [place] [address] Glenn Gudino M.D. [id number] Sodium [Moles/Vol] 133 mmol/L Low 135-145 [facility] Comment on above: Order Comment: [facility] has implemented the eGFR calculation approach that does not have a coefficient for race that conforms to the NKF-ASN Task Force Recommendations. Performed By: #### 4 6449 ####[facility] [address] [place], [place] [address] Glenn Gudino M.D. [id number] Urea nitrogen [Mass/Vol] 26 mg/dL High 8-25 [facility] Comment on above: Order Comment: [facility] has implemented the eGFR calculation approach that does not have a coefficient for race that conforms to the NKF-ASN Task Force Recommendations. Performed By: #### 4 6449 ####[facility] [address] [place] [address] Glenn Gudino M.D. [id number] Urea nitrogen/Creatinine [Mass ratio] 13.2 mg/mg Normal 10.0-20.0 [facility] Comment on above: Order Comment: [facility] has implemented the eGFR calculation approach that does not have a coefficient for race that conforms to the NKF-ASN Task Force Recommendations. Performed By: #### 4 6449 ####[facility] [address] [place] [address] Glenn Gudino M.D. [id number] TYPE AND SCREENon 02-06-2024 TYPE AND SCREEN ABORH: O Positive AB SCREEN: Positive EXPIRATION DATE: 02/09/2024 23:59 EST Normal [facility] Comment on above: Performed By: #### 4 6619 ####[facility] [address] [place] [address] Nurys Oneill MD [id number] RMHTS XR CHEST PA/APon 02-06-2024 XR CHEST PA/AP Normal [facility] Comment on above: Order Comment: Injur y/Trauma or Illness?:Illness/OtherHow long have you had these symptoms (acute/chronic)?:UnknownReason for exam?:chest tube palcement, pneumothoraxHistory of cancer?:uSurgeries, chemotherapy, or radiation?:uType of Exam?:OngoingAdditional signs and symptoms?:chest tube palcement, pneumothorax CALCIUM, IONIZEDon CALCIUM IONIZED 4.6 mg/dL Normal 4.5-5.3 [facility] Comment on above: Order Comment: Serum , non-CRRT source. Performed By: #### 4 5190 ####[facility] [address] [place] [address] Glenn Gudino M.D. [id number] CBCon 02-05-2024 AUTO NRBC 0.0 % Normal [facility] Comment on above: Performed By: #### 4 [id number] ####[facility] [address] [place], [place] [address] Glenn Gudino M.D. [id number] AUTO NRBC ABS COUNT 0.00 K/mcL Normal 0.00-0.00 [facility] Comment on above: Performed By: #### 4 [id number] ####[facility] [address] [place] [address] Glenn Gudino M.D. [id number] Erythrocyte distribution width (RBC) [Ratio] 18.2 % High 11.6-14.8 [facility] Comment on above: Performed By: #### 4 [id number] ####[facility] [address] [place] [address] Glenn Guidno M.D. [id number] Hematocrit (Bld) [Volume fraction] 27.7 % Low 36.0-46.0 [facility] Comment on above: Performed By: #### 4 [id number] ####[facility] [address] [place] [address] Glenn Gudino M.D. [id number] Hemoglobin (Bld) [Mass/Vol] 8.7 g/dL Low 12.0-16.0 [facility] Comment on above: Performed By: #### 4 [id number] ####[facility] [address] [place], [place] [address] Glenn Gudino M.D. [id number] MCH (RBC) [Entitic mass] 28.8 pg Normal 26.0-34.0 [facility] Comment on above: Performed By: #### 4 [id number] ####[facility] [address] [place], [place] [address] Glenn Gudino M.D. [id number] MCV (RBC) [Entitic vol] 91.7 fL Normal 80.0-100.0 [facility] Comment on above: Performed By: #### 4 [id number] ####[facility] [address] [place] [address] Glenn Gudino M.D. [id number] MEAN CORPUSCULAR HEMOGLOBIN CONC 31.4 g/dL Normal 31.0-37.0 [facility] Comment on above: Performed By: #### 4 [id number] ####[facility] [address] [place] [address] Glenn Gudino M.D. [id number] Platelet mean volume (Bld) [Entitic vol] 9.5 fL Normal 9.4-12.4 [facility] Comment on above: Performed By: #### 4 [id number] ####[facility] [address] [place], [place] [address] Glenn Gudino M.D. [id number] Platelets (Bld) [#/Vol] 226 10*3/uL Normal 150-400 [facility] Comment on above: Performed By: #### 4 [id number] ####[facility] [address] [place] [address] Glenn Gudino M.D. [id number] RBC (Bld) [#/Vol] 3.02 10*6/uL Low 4.00-5.20 [facility] Comment on above: Performed By: #### 4 [id number] ####[facility] [address] [place] [address] Glenn Gudino M.D. [id number] WBC (Bld) [#/Vol] 15.07 10*3/uL High 4.50-11.00 [facility] Comment on above: Performed By: #### 4 [id number] ####[facility] [address] [place] [address] Glenn Gudino M.D. [id number] COMPREHENSIVE METABOLIC PANE Magdaleno 02-05-2024 Albumin [Mass/Vol] 2.5 g/dL Low 3.2-5.2 [facility] Comment on above: Order Comment: [facility] has implemented the eGFR calculation approach that does not have a coefficient for race that conforms to the NKF-ASN Task Force Recommendations. Performed By: #### 4 6126 ####[facility] [address] [place] [address] Glenn Gudino M.D. [id number] ALP [Catalytic activity/Vol] 50 U/L Normal 40-150 [facility] Comment on above: Order Comment: [facility] has implemented the eGFR calculation approach that does not have a coefficient for race that conforms to the NKF-ASN Task Force Recommendations. Performed By: #### 4 6126 ####[facility] [address] [place] [address] Glenn Gudino M.D. [id number] ALT [Catalytic activity/Vol] 7 U/L Normal 0-35 U/L [facility] Comment on above: Order Comment: [facility] has implemented the eGFR calculation approach that does not have a coefficient for race that conforms to the NKF-ASN Task Force Recommendations. Performed By: #### 4 6126 ####[facility] [address] [place], [place] [address] Glenn Gudino M.D. [id number] Anion gap [Moles/Vol] 12 mmol/L Normal 10-20 [facility] Comment on above: Order Comment: [facility] has implemented the eGFR calculation approach that does not have a coefficient for race that conforms to the NKF-ASN Task Force Recommendations. Performed By: #### 4 6126 ####[facility] [address] [place], [place] [address] Glenn Gudino M.D. [id number] AST [Catalytic activity/Vol] 23 U/L Normal 0-35 U/L [facility] Comment on above: Order Comment: [facility] has implemented the eGFR calculation approach that does not have a coefficient for race that conforms to the NKF-ASN Task Force Recommendations. Performed By: #### 4 6126 ####[facility] [address] [place], [place] [address] Glenn Gudino M.D. [id number] Bilirubin [Mass/Vol] 0.4 mg/dL Normal 0.0-1.3 [facility] Comment on above: Order Comment: [facility] has implemented the eGFR calculation approach that does not have a coefficient for race that conforms to the NKF-ASN Task Force Recommendations. Performed By: #### 4 6126 ####[facility] [address] [place], [place] [address] Glenn Gudino M.D. [id number] Calcium [Mass/Vol] 7.8 mg/dL Low 8.4-10.2 [facility] Comment on above: Order Comment: [facility] has implemented the eGFR calculation approach that does not have a coefficient for race that conforms to the NKF-ASN Task Force Recommendations. Performed By: #### 4 6126 ####[facility] [address] [place], [place] [address] Glenn Gudino M.D. [id number] Chloride [Moles/Vol] 96 mmol/L Low 98-108 [facility] Comment on above: Order Comment: [facility] has implemented the eGFR calculation approach that does not have a coefficient for race that conforms to the NKF-ASN Task Force Recommendations. Performed By: #### 4 6126 ####[facility] [address] [place] [address] Glenn Gudino M.D. [id number] Creatinine [Mass/Vol] 2.82 mg/dL High 0.60-1.10 [facility] Comment on above: Order Comment: [facility] has implemented the eGFR calculation approach that does not have a coefficient for race that conforms to the NKF-ASN Task Force Recommendations. Performed By: #### 4 6126 ####[facility] [address] [place] [address] Glenn Gudino M.D. [id number] EGFR 19 mL/min/1.73 m2 Low >=60 [facility] Comment on above: Order Comment: [facility] has implemented the eGFR calculation approach that does not have a coefficient for race that conforms to the NKF-ASN Task Force Recommendations. Result Comment: Joi mated GFR was calculated using the 2020 CKD-EPI creatinine equation. Performed By: #### 4 6126 ####[facility] [address] [place] [address] Glenn Gudino M.D. [id number] Glucose [Mass/Vol] 173 mg/dL High 65-99 [facility] Comment on above: Order Comment: [facility] has implemented the eGFR calculation approach that does not have a coefficient for race that conforms to the NKF-ASN Task Force Recommendations. Performed By: #### 4 6126 ####[facility] [address] [place] [address] Glenn Gudino M.D. [id number] HCO3 (Bld) [Moles/Vol] 28 mmol/L Normal 21-32 [facility] Comment on above: Order Comment: [facility] has implemented the eGFR calculation approach that does not have a coefficient for race that conforms to the NKF-ASN Task Force Recommendations. Performed By: #### 4 6126 ####[facility] [address] [place] [address] Glenn Gudino M.D. [id number] Potassium [Moles/Vol] 4.1 mmol/L Normal 3.5-5.1 [facility] Comment on above: Order Comment: [facility] has implemented the eGFR calculation approach that does not have a coefficient for race that conforms to the NKF-ASN Task Force Recommendations. Performed By: #### 4 6126 ####[facility] [address] [place] [address] Glenn Gudino M.D. [id number] Protein [Mass/Vol] 5.1 g/dL Low 6.0-8.0 [facility] Comment on above: Order Comment: [facility] has implemented the eGFR calculation approach that does not have a coefficient for race that conforms to the NKF-ASN Task Force Recommendations. Performed By: #### 4 6126 ####[facility] [address] [place] [address] Glenn Gudino M.D. [id number] Sodium [Moles/Vol] 132 mmol/L Low 135-145 [facility] Comment on above: Order Comment: [facility] has implemented the eGFR calculation approach that does not have a coefficient for race that conforms to the NKF-ASN Task Force Recommendations. Performed By: #### 4 6126 ####[facility] [address] [place], [place] [address] Glenn Gudino M.D. [id number] Urea nitrogen [Mass/Vol] 34 mg/dL High 8-25 [facility] Comment on above: Order Comment: [facility] has implemented the eGFR calculation approach that does not have a coefficient for race that conforms to the NKF-ASN Task Force Recommendations. Performed By: #### 4 6126 ####[facility] [address] [place] [address] Glenn Gudino M.D. [id number] Urea nitrogen/Creatinine [Mass ratio] 12.1 mg/mg Normal 10.0-20.0 [facility] Comment on above: Order Comment: [facility] has implemented the eGFR calculation approach that does not have a coefficient for race that conforms to the NKF-ASN Task Force Recommendations. Performed By: #### 4 6126 ####[facility] [address] [place], [place] [address] Glenn Gudino M.D. [id number] MAGNESIUM LEVELon 02-05-2024 Magnesium [Mass/Vol] 2.1 mg/dL Normal 1.6-2.4 [facility] Comment on above: Performed By: #### 4 6109 ####[facility] [address] [place] [address] Glenn Gudino M.D. [id number] PHOSPHORUSon 02-05-2024 Phosphate [Mass/Vol] 2.8 mg/dL Normal 2.8-4.1 [facility] Comment on above: Performed By: #### 4 6299 ####[facility] [address] [place] [address] Glenn Gudino M.D. [id number] POC GLUCOSE - [facility] 024 Glucose [Mass/Vol] 143 mg/dL High 65-99 [facility] Comment on above: Performed By: #### 4 6932 ####[facility] [address] [place] [address] [id number] [facility] Glucose [Mass/Vol] 186 mg/dL High 65-99 [facility] Comment on above: Performed By: #### 4 6932 ####[facility] [address] [place] [address] [id number] [facility] Glucose [Mass/Vol] 97 mg/dL Normal 65-99 [facility] Comment on above: Performed By: #### 4 6910 ####[facility] [address] [place] [address] [id number] [facility] Glucose [Mass/Vol] 201 mg/dL High 65-99 [facility] Comment on above: Performed By: #### 4 9545 ####[facility] [address] [place] [address] [id number] [facility] Glucose [Mass/Vol] 193 mg/dL High 65-99 [facility] Comment on above: Performed By: #### 4 8044 ####[facility] [address] [place], [place] [address] [id number] [facility] Glucose [Mass/Vol] 185 mg/dL High 65-99 [facility] Comment on above: Performed By: #### 4 6932 ####[facility] [address] [place] [address] [id number] [facility] Glucose [Mass/Vol] 172 mg/dL High 65-99 [facility] Comment on above: Performed By: #### 4 6932 ####[facility] [address] [place] [address] [id number] [facility] PREALBUMINon 02-05-2024 Prealbumin [Mass/Vol] 10.7 mg/dL Low 20.0-40.0 [facility] Comment on above: Performed By: #### 4 6355 ####[facility] [address] [place] [address] Glenn Gudino M.D. [id number] TRIGLYCERIDESon 02-05-2024 Triglyceride [Mass/Vol] 249 mg/dL High 30-150 [facility] Comment on above: Result Comment: [facility]ila onal Cholesterol Education Program Guidelines: TriglycerideNormal: <150 mg/dLBorderline High: 150-199 mg/dLHigh: 200-499 mg/dLVery High: greater than or equal to 500 mg/dL Performed By: #### 4 6606 ####[facility] [address] [place] [address] Glenn Gudino M.D. [id number] XR CHEST PA/APon 02-05-2024 XR CHEST PA/AP Normal [facility] Comment on above: Order Comment: Injur y/Trauma or Illness?:Illness/OtherHow long have you had these symptoms (acute/chronic)?:UnknownReason for exam?:chest tube palcement, pneumothoraxHistory of cancer?:uSurgeries, chemotherapy, or radiation?:uType of Exam?:InitialAdditional signs and symptoms?:. CALCIUM, IONIZEDon CALCIUM IONIZED 4.6 mg/dL Normal 4.5-5.3 [facility] Comment on above: Order Comment: Serum , non-CRRT source. Performed By: #### 4 5190 ####[facility] [address] [place], [place] [address] Glenn Gudino M.D. [id number] CBCon 02-04-2024 AUTO NRBC 0.0 % Normal [facility] Comment on above: Performed By: #### 4 [id number] ####[facility] [address] [place] [address] Glenn Gudino M.D. [id number] AUTO NRBC ABS COUNT 0.00 K/mcL Normal 0.00-0.00 [facility] Comment on above: Performed By: #### 4 [id number] ####[facility] [address] [place] [address] Glenn Gudino M.D. [id number] Erythrocyte distribution width (RBC) [Ratio] 18.1 % High 11.6-14.8 [facility] Comment on above: Performed By: #### 4 [id number] ####[facility] [address] [place], [place] [address] Glenn Gudino M.D. [id number] Hematocrit (Bld) [Volume fraction] 27.1 % Low 36.0-46.0 [facility] Comment on above: Performed By: #### 4 [id number] ####[facility] [address] [place], [place] [address] Glenn Gudino M.D. [id number] Hemoglobin (Bld) [Mass/Vol] 8.5 g/dL Low 12.0-16.0 [facility] Comment on above: Performed By: #### 4 [id number] ####[facility] [address] [place], [place] [address] Glenn Gudino M.D. [id number] MCH (RBC) [Entitic mass] 28.6 pg Normal 26.0-34.0 [facility] Comment on above: Performed By: #### 4 [id number] ####[facility] [address] [place] [address] Glenn Gudino M.D. [id number] MCV (RBC) [Entitic vol] 91.2 fL Normal 80.0-100.0 [facility] Comment on above: Performed By: #### 4 [id number] ####[facility] [address] [place] [address] Glenn Gudino M.D. [id number] MEAN CORPUSCULAR HEMOGLOBIN CONC 31.4 g/dL Normal 31.0-37.0 [facility] Comment on above: Performed By: #### 4 [id number] ####[facility] [address] [place], [place] [address] Glenn Gudino M.D. [id number] Platelet mean volume (Bld) [Entitic vol] 10.0 fL Normal 9.4-12.4 [facility] Comment on above: Performed By: #### 4 [id number] ####[facility] [address] [place], [place] [address] Glenn Gudino M.D. [id number] Platelets (Bld) [#/Vol] 215 10*3/uL Normal 150-400 [facility] Comment on above: Performed By: #### 4 [id number] ####[facility] [address] [place] [address] 18899 Glenn Gudino M.D. [id number] RBC (Bld) [#/Vol] 2.97 10*6/uL Low 4.00-5.20 [facility] Comment on above: Performed By: #### 4 [id number] ####[facility] [address] [place], [place] [address] Glenn Gudino M.D. [id number] WBC (Bld) [#/Vol] 13.18 10*3/uL High 4.50-11.00 [facility] Comment on above: Performed By: #### 4 [id number] ####[facility] [address] [place] [address] Glenn Gudino M.D. [id number] COMPREHENSIVE METABOLIC PANE Magdaleno 02-04-2024 ALP [Catalytic activity/Vol] 47 U/L Normal 40-150 [facility] Comment on above: Order Comment: [facility] has implemented the eGFR calculation approach that does not have a coefficient for race that conforms to the NKF-ASN Task Force Recommendations. Performed By: #### 4 6126 ####[facility] [address] [place] [address]289 Glenn Gudino M.D. [id number] ALT [Catalytic activity/Vol] 6 U/L Normal 0-35 U/L [facility] Comment on above: Order Comment: [facility] has implemented the eGFR calculation approach that does not have a coefficient for race that conforms to the NKF-ASN Task Force Recommendations. Performed By: #### 4 6126 ####[facility] [address] [place] [address] Glenn Gudino M.D. [id number] AST [Catalytic activity/Vol] 20 U/L Normal 0-35 U/L [facility] Comment on above: Order Comment: [facility] has implemented the eGFR calculation approach that does not have a coefficient for race that conforms to the NKF-ASN Task Force Recommendations. Performed By: #### 4 6126 ####[facility] [address] [place] [address] Glenn Gudino M.D. [id number] Bilirubin [Mass/Vol] 0.6 mg/dL Normal 0.0-1.3 [facility] Comment on above: Order Comment: [facility] has implemented the eGFR calculation approach that does not have a coefficient for race that conforms to the NKF-ASN Task Force Recommendations. Performed By: #### 4 6126 ####[facility] [address] [place] [address] Glenn Gudino M.D. [id number] Protein [Mass/Vol] 5.2 g/dL Low 6.0-8.0 [facility] Comment on above: Order Comment: [facility] has implemented the eGFR calculation approach that does not have a coefficient for race that conforms to the NKF-ASN Task Force Recommendations. Performed By: #### 4 6126 ####[facility] [address] [place] [address] Glenn Gudino M.D. [id number] MAGNESIUM LEVELon 02-04-2024 Magnesium [Mass/Vol] 2.0 mg/dL Normal 1.6-2.4 [facility] Comment on above: Performed By: #### 4 6109 ####[facility] [address] [place] [address] Glenn Gudino M.D. [id number] POC GLUCOSE - [facility] 024 Glucose [Mass/Vol] 136 mg/dL High -99 [facility] Comment on above: Performed By: #### 4 6998 ####[facility] [address] [place] [address] [id number] [facility] Glucose [Mass/Vol] 181 mg/dL High -[address] [place] [address] Comment on above: Performed By: #### 4 8812 ####[facility] [address] [place] [address] [id number] [facility] Glucose [Mass/Vol] 178 mg/dL High -99 [facility] Comment on above: Performed By: #### 4 7384 ####[facility] [address] [place] [address] [id number] [facility] Glucose [Mass/Vol] 155 mg/dL High -99 [facility] Comment on above: Performed By: #### 4 0741 ####[facility] [address] [place] [address] [id number] [facility] Glucose [Mass/Vol] 145 mg/dL High 65-99 [facility] Comment on above: Performed By: #### 4 6932 ####[facility] [address] [place] [address] [id number] [facility] Glucose [Mass/Vol] 85 mg/dL Normal 65-99 [facility] Comment on above: Performed By: #### 4 6932 ####[facility] [address] [place] [address] [id number] [facility] PREALBUMINon 02-04-2024 Prealbumin [Mass/Vol] 8.8 mg/dL Low 20.0-40.0 [facility] Comment on above: Performed By: #### 4 6355 ####[facility] [address] [place] [address] Glenn Gudino M.D. [id number] RENAL FUNCTION PANELon 02-03 Albumin [Mass/Vol] 2.6 g/dL Low 3.2-5.2 [facility] Comment on above: Order Comment: [facility] has implemented the eGFR calculation approach that does not have a coefficient for race that conforms to the NKF-ASN Task Force Recommendations. Performed By: #### 4 6449 ####[facility] [address] [place] [address] Glenn Gudino M.D. [id number] Performed By: #### 4 6126 ####[facility] [address] [place] [address] Glenn Gudino M.D. [id number] Anion gap [Moles/Vol] 15 mmol/L Normal 10-20 [facility] Comment on above: Order Comment: [facility] has implemented the eGFR calculation approach that does not have a coefficient for race that conforms to the NKF-ASN Task Force Recommendations. Performed By: #### 4 6449 ####[facility] [address] [place] [address] Glenn Gudino M.D. [id number] Performed By: #### 4 6126 ####[facility] [address] [place], [place] [address] Glenn Gudino M.D. [id number] Calcium [Mass/Vol] 8.1 mg/dL Low 8.4-10.2 [facility] Comment on above: Order Comment: [facility] has implemented the eGFR calculation approach that does not have a coefficient for race that conforms to the NKF-ASN Task Force Recommendations. Performed By: #### 4 6449 ####[facility] [address] [place] [address] Glenn Gudino M.D. [id number] Performed By: #### 4 6126 ####[facility] [address] [place] [address] Glenn Gudino M.D. [id number] Chloride [Moles/Vol] 95 mmol/L Low 98-108 [facility] Comment on above: Order Comment: [facility] has implemented the eGFR calculation approach that does not have a coefficient for race that conforms to the NKF-ASN Task Force Recommendations. Performed By: #### 4 6449 ####[facility] [address] [place], [place] [address] Glenn Gudino M.D. [id number] Performed By: #### 4 6126 ####[facility] [address] [place], [place] [address] Glenn Gudion M.D. [id number] Creatinine [Mass/Vol] 2.14 mg/dL High 0.60-1.10 [facility] Comment on above: Order Comment: [facility] has implemented the eGFR calculation approach that does not have a coefficient for race that conforms to the NKF-ASN Task Force Recommendations. Performed By: #### 4 6449 ####[facility] [address] [place] [address] Glenn Gudino M.D. [id number] Performed By: #### 4 6126 ####[facility] [address] [place], [place] [address] Glenn Gudino M.D. [id number] EGFR 26 mL/min/1.73 m2 Low >=60 [facility] Comment on above: Order Comment: [facility] has implemented the eGFR calculation approach that does not have a coefficient for race that conforms to the NKF-ASN Task Force Recommendations. Result Comment: Joi mated GFR was calculated using the 2020 CKD-EPI creatinine equation. Performed By: #### 4 6449 ####[facility] [address] [place], [place] [address] Glenn Gudino M.D. [id number] Result Comment: Joi mated GFR was calculated using the 2020 CKD-EPI creatinine equation.Estimated GFR was calculated using the 2020 CKD-EPI creatinine equation. Performed By: #### 4 6126 ####[facility] [address] [place] [address] Glenn Gudino M.D. [id number] Glucose [Mass/Vol] 151 mg/dL High 65-99 [facility] Comment on above: Order Comment: [facility] has implemented the eGFR calculation approach that does not have a coefficient for race that conforms to the NKF-ASN Task Force Recommendations. Performed By: #### 4 6449 ####[facility] [address] [place] [address] Glenn Gudino M.D. [id number] Performed By: #### 4 6126 ####[facility] [address] [place] [address] 42473 Glenn Gudino M.D. [id number] HCO3 (Bld) [Moles/Vol] 26 mmol/L Normal 21-32 [facility] Comment on above: Order Comment: [facility] has implemented the eGFR calculation approach that does not have a coefficient for race that conforms to the NKF-ASN Task Force Recommendations. Performed By: #### 4 6449 ####[facility] [address] [place] [address] Glenn Gudino M.D. [id number] Performed By: #### 4 6126 ####[facility] [address] [place] [address] Glenn Gudino M.D. [id number] Phosphate [Mass/Vol] 3.4 mg/dL Normal 2.8-4.1 [facility] Comment on above: Order Comment: [facility] has implemented the eGFR calculation approach that does not have a coefficient for race that conforms to the NKF-ASN Task Force Recommendations. Performed By: #### 4 6449 ####[facility] [address] [place] [address] Glenn Gudino M.D. [id number] Potassium [Moles/Vol] 4.1 mmol/L Normal 3.5-5.1 [facility] Comment on above: Order Comment: [facility] has implemented the eGFR calculation approach that does not have a coefficient for race that conforms to the NKF-ASN Task Force Recommendations. Performed By: #### 4 6449 ####[facility] [address] [place] [address] Glenn Gudino M.D. [id number] Performed By: #### 4 6126 ####[facility] [address] [place], [place] [address] Glenn Gudino M.D. [id number] Sodium [Moles/Vol] 132 mmol/L Low 135-145 [facility] Comment on above: Order Comment: [facility] has implemented the eGFR calculation approach that does not have a coefficient for race that conforms to the NKF-ASN Task Force Recommendations. Performed By: #### 4 6449 ####[facility] [address] [place] [address]3976 Glenn Gudino M.D. [id number] Performed By: #### 4 6126 ####[facility] [address] [place], [place] [address] Glenn Gudino M.D. [id number] Urea nitrogen [Mass/Vol] 22 mg/dL Normal 8-25 [facility] Comment on above: Order Comment: [facility] has implemented the eGFR calculation approach that does not have a coefficient for race that conforms to the NKF-ASN Task Force Recommendations. Performed By: #### 4 6449 ####[facility] [address] [place] [address] Glenn Gudino M.D. [id number] Performed By: #### 4 6126 ####[facility] [address] [place], [place] [address] Glenn Gudino M.D. [id number] Urea nitrogen/Creatinine [Mass ratio] 10.3 mg/mg Normal 10.0-20.0 [facility] Comment on above: Order Comment: [facility] has implemented the eGFR calculation approach that does not have a coefficient for race that conforms to the NKF-ASN Task Force Recommendations. Performed By: #### 4 6449 ####[facility] [address] [place], [place] [address] Glenn Gudino M.D. [id number] Performed By: #### 4 6126 ####[facility] [address] [place] [address] Glenn Gudino M.D. [id number] TRIGLYCERIDESon 02-04-2024 Triglyceride [Mass/Vol] 339 mg/dL High 30-150 [facility] Comment on above: Result Comment: [facility]ila onal Cholesterol Education Program Guidelines: TriglycerideNormal: <150 mg/dLBorderline High: 150-199 mg/dLHigh: 200-499 mg/dLVery High: greater than or equal to 500 mg/dL Performed By: #### 4 6606 ####[facility] [address] [place] [address] Glenn Gudino M.D. [id number] XR CHEST PA/APon 02-04-2024 XR CHEST PA/AP Normal [facility] Comment on above: Order Comment: Injur y/Trauma or Illness?:Illness/OtherHow long have you had these symptoms (acute/chronic)?:AcuteReason for exam?:chest tube palcement, pneumothoraxHistory of cancer?:uSurgeries, chemotherapy, or radiation?:uType of Exam?:OngoingAdditional signs and symptoms?:chest tube palcement, pneumothorax ANTIBODY IDENTIFICATION-Con 02-03-2024 ANTIBODY IDENTIFICATION-C Normal [facility] Comment on above: Performed By: #### 4 6427_Anti-C ####[facility] [address] [place] [address] Nurys Oneill MD [id number] [facility] CALCIUM, IONIZEDon CALCIUM IONIZED 4.5 mg/dL Normal 4.5-5.3 [facility] Comment on above: Order Comment: Serum , non-CRRT source. Performed By: #### 4 5190 ####[facility] [address] [place] [address] Glenn Gudino M.D. [id number] CBCon 02-03-2024 AUTO NRBC 0.0 % Normal [facility] Comment on above: Performed By: #### 4 5218 ####[facility] [address] [place], [place] [address] Glenn Gudino M.D. [id number] AUTO NRBC ABS COUNT 0.00 K/mcL Normal 0.00-0.00 [facility] Comment on above: Performed By: #### 4 5218 ####[facility] [address] [place] [address] Glenn Gudino M.D. [id number] Erythrocyte distribution width (RBC) [Ratio] 17.8 % High 11.6-14.8 [facility] Comment on above: Performed By: #### 4 5218 ####[facility] [address] [place] [address] Glenn Gudino M.D. [id number] Hematocrit (Bld) [Volume fraction] 29.4 % Low 36.0-46.0 [facility] Comment on above: Performed By: #### 4 5218 ####[facility] [address] [place] [address] Glenn Gudino M.D. [id number] Hemoglobin (Bld) [Mass/Vol] 9.6 g/dL Low 12.0-16.0 [facility] Comment on above: Performed By: #### 4 5218 ####[facility] [address] [place] [address] Glenn Gudino M.D. [id number] MCH (RBC) [Entitic mass] 29.0 pg Normal 26.0-34.0 [facility] Comment on above: Performed By: #### 4 5218 ####[facility] [address] [place] [address] Glenn Gudino M.D. [id number] MCV (RBC) [Entitic vol] 88.8 fL Normal 80.0-100.0 [facility] Comment on above: Performed By: #### 4 5218 ####[facility] [address] [place], [place] [address] Glenn Gudino M.D. [id number] MEAN CORPUSCULAR HEMOGLOBIN CONC 32.7 g/dL Normal 31.0-37.0 [facility] Comment on above: Performed By: #### 4 5285 ####[facility] [address] [place], [place] [address] Glenn Gudino M.D. [id number] Platelet mean volume (Bld) [Entitic vol] 9.6 fL Normal 9.4-12.4 [facility] Comment on above: Performed By: #### 4 5218 ####[facility] [address] [place] [address] 17883 Glenn Gudino M.D. [id number] Platelets (Bld) [#/Vol] 150 10*3/uL Normal 150-400 [facility] Comment on above: Performed By: #### 4 5218 ####[facility] [address] [place] [address] 26592 Glenn Gudino M.D. [id number] RBC (Bld) [#/Vol] 3.31 10*6/uL Low 4.00-5.20 [facility] Comment on above: Performed By: #### 4 5218 ####[facility] [address] [place] [address] 90607 Glenn Gudino M.D. [id number] WBC (Bld) [#/Vol] 13.45 10*3/uL High 4.50-11.00 [facility] Comment on above: Performed By: #### 4 5218 ####[facility] [address] [place] [address]6743 Glenn Gudino M.D. [id number] CONSULTon 02-03-2024 CONSULT VIR consulted for no n tunneled CVC for short term TPN. Spoke to vascular surgery team. They'll plan to place an IJV line. AUTHENTICATED BY ROBERT DEL VALLE, ON 02/03/2024 11:17:22 Normal [facility] MAGNESIUM LEVELon 02-03-2024 Magnesium [Mass/Vol] 2.1 mg/dL Normal 1.6-2.4 [facility] Comment on above: Performed By: #### 4 6109 ####[facility] [address] [place] [address]146 Glenn Gudino M.D. [id number] [facility] Glucose [Mass/Vol] 95 mg/dL Normal 65-99 [facility] Comment on above: Performed By: #### 4 6932 ####[facility] [address] [place] [address] [id number] [facility] Glucose [Mass/Vol] 102 mg/dL High 65-99 [facility] Comment on above: Performed By: #### 4 6932 ####[facility] [address] [place] [address] [id number] [facility] Glucose [Mass/Vol] 113 mg/dL High 65-99 [facility] Comment on above: Performed By: #### 4 6932 ####[facility] [address] [place] [address] [id number] [facility] Glucose [Mass/Vol] 132 mg/dL High 65-99 [facility] Comment on above: Performed By: #### 4 6932 ####[facility] [address] [place] [address] [id number] [facility] Glucose [Mass/Vol] 145 mg/dL High 65-99 [facility] Comment on above: Performed By: #### 4 6932 ####[facility] [address] [place] [address] [id number] [facility] Glucose [Mass/Vol] 131 mg/dL High 65-99 [facility] Comment on above: Performed By: #### 4 6932 ####[facility] [address] [place] [address] [id number] [facility] RENAL FUNCTION PANELon 02-02 Albumin [Mass/Vol] 2.4 g/dL Low 3.2-5.2 [facility] Comment on above: Order Comment: [facility] has implemented the eGFR calculation approach that does not have a coefficient for race that conforms to the NKF-ASN Task Force Recommendations. Performed By: #### 4 6449 ####[facility] [address] [place] [address] Glenn Gudino M.D. [id number] Anion gap [Moles/Vol] 16 mmol/L Normal 10-20 [facility] Comment on above: Order Comment: [facility] has implemented the eGFR calculation approach that does not have a coefficient for race that conforms to the NKF-ASN Task Force Recommendations. Performed By: #### 4 6449 ####[facility] [address] [place] [address] Glenn Gudino M.D. [id number] Calcium [Mass/Vol] 7.9 mg/dL Low 8.4-10.2 [facility] Comment on above: Order Comment: [facility] has implemented the eGFR calculation approach that does not have a coefficient for race that conforms to the NKF-ASN Task Force Recommendations. Performed By: #### 4 6449 ####[facility] [address] [place] [address] 18181 Glenn Gudino M.D. [id number] Chloride [Moles/Vol] 97 mmol/L Low 98-108 [facility] Comment on above: Order Comment: [facility] has implemented the eGFR calculation approach that does not have a coefficient for race that conforms to the NKF-ASN Task Force Recommendations. Performed By: #### 4 6449 ####[facility] [address] [place] [address]005 Glenn Gudino M.D. [id number] Creatinine [Mass/Vol] 2.53 mg/dL High 0.60-1.10 [facility] Comment on above: Order Comment: [facility] has implemented the eGFR calculation approach that does not have a coefficient for race that conforms to the NKF-ASN Task Force Recommendations. Performed By: #### 4 6449 ####[facility] [address] [place] [address]12 Glenn Gudino M.D. [id number] EGFR 21 mL/min/1.73 m2 Low >=60 [facility] Comment on above: Order Comment: [facility] has implemented the eGFR calculation approach that does not have a coefficient for race that conforms to the NKF-ASN Task Force Recommendations. Result Comment: Joi mated GFR was calculated using the 2020 CKD-EPI creatinine equation. Performed By: #### 4 6449 ####[facility] [address] [place] [address] Glenn Gudino M.D. [id number] Glucose [Mass/Vol] 154 mg/dL High 65-99 [facility] Comment on above: Order Comment: [facility] has implemented the eGFR calculation approach that does not have a coefficient for race that conforms to the NKF-ASN Task Force Recommendations. Performed By: #### 4 6449 ####[facility] [address] [place], [place] [address] Glenn Gudino M.D. [id number] HCO3 (Bld) [Moles/Vol] 25 mmol/L Normal 21-32 [facility] Comment on above: Order Comment: [facility] has implemented the eGFR calculation approach that does not have a coefficient for race that conforms to the NKF-ASN Task Force Recommendations. Performed By: #### 4 6449 ####[facility] [address] [place] [address] 76823 Glenn Gudino M.D. [id number] Phosphate [Mass/Vol] 3.6 mg/dL Normal 2.8-4.1 [facility] Comment on above: Order Comment: [facility] has implemented the eGFR calculation approach that does not have a coefficient for race that conforms to the NKF-ASN Task Force Recommendations. Performed By: #### 4 6449 ####[facility] [address] [place], [place] [address] Glenn Gudino M.D. [id number] Potassium [Moles/Vol] 5.8 mmol/L High 3.5-5.1 [facility] Comment on above: Order Comment: [facility] has implemented the eGFR calculation approach that does not have a coefficient for race that conforms to the NKF-ASN Task Force Recommendations. Performed By: #### 4 6449 ####[facility] [address] [place], [place] [address] Glenn Gudino M.D. [id number] Sodium [Moles/Vol] 132 mmol/L Low 135-145 [facility] Comment on above: Order Comment: [facility] has implemented the eGFR calculation approach that does not have a coefficient for race that conforms to the NKF-ASN Task Force Recommendations. Performed By: #### 4 6449 ####[facility] [address] [place], [place] [address] Glenn Gudino M.D. [id number] Urea nitrogen [Mass/Vol] 30 mg/dL High 8-25 [facility] Comment on above: Order Comment: [facility] has implemented the eGFR calculation approach that does not have a coefficient for race that conforms to the NKF-ASN Task Force Recommendations. Performed By: #### 4 6449 ####[facility] [address] [place], [place] [address] Glenn Gudino M.D. [id number] Urea nitrogen/Creatinine [Mass ratio] 11.9 mg/mg Normal 10.0-20.0 [facility] Comment on above: Order Comment: [facility] has implemented the eGFR calculation approach that does not have a coefficient for race that conforms to the NKF-ASN Task Force Recommendations. Performed By: #### 4 6449 ####[facility] [address] [place], [place] [address] Glenn Gudino M.D. [id number] TYPE AND SCREENon 02-03-2024 TYPE AND SCREEN Normal [facility] Comment on above: Performed By: #### 4 6619 ####[facility] [address] [place] [address] Nurys Oneill MD [id number] RMHTS XR CHEST PA/APon 02-03-2024 XR CHEST PA/AP Normal [facility] Comment on above: Order Comment: Injur y/Trauma [...] 4 CALCIUM IONIZED 4.4 mg/dL Low 4.5-5.3 [facility] Comment on above: Performed By: #### 4 5190 ####[facility] [address] [place] [address] Glenn Gudino M.D. [id number] CBCon 02-02-2024 AUTO NRBC 0.0 % Normal [facility] Comment on above: Performed By: #### 4 [id number] ####[facility] [address] [place], [place] [address] Glenn Gudino M.D. [id number] AUTO NRBC ABS COUNT 0.00 K/mcL Normal 0.00-0.00 [facility] Comment on above: Performed By: #### 4 5218 ####[facility] [address] [place], [place] [address] Glenn Gudino M.D. [id number] Erythrocyte distribution width (RBC) [Ratio] 18.9 % High 11.6-14.8 [facility] Comment on above: Performed By: #### 4 5218 ####[facility] [address] [place] [address] Glenn Gudino M.D. [id number] Hematocrit (Bld) [Volume fraction] 25.0 % Low 36.0-46.0 [facility] Comment on above: Performed By: #### 4 5218 ####[facility] [address] [place] [address] Glenn Gudino M.D. [id number] Hemoglobin (Bld) [Mass/Vol] 7.9 g/dL Low 12.0-16.0 [facility] Comment on above: Performed By: #### 4 5218 ####[facility] [address] [place] [address] Glenn Gudino M.D. [id number] MCH (RBC) [Entitic mass] 28.6 pg Normal 26.0-34.0 [facility] Comment on above: Performed By: #### 4 5218 ####[facility] [address] [place] [address] Glenn Gudino M.D. [id number] MCV (RBC) [Entitic vol] 90.6 fL Normal 80.0-100.0 [facility] Comment on above: Performed By: #### 4 5218 ####[facility] [address] [place], [place] [address] Glenn Gudino M.D. [id number] MEAN CORPUSCULAR HEMOGLOBIN CONC 31.6 g/dL Normal 31.0-37.0 [facility] Comment on above: Performed By: #### 4 5218 ####[facility] [address] [place], [place] [address] Glenn Gudino M.D. [id number] Platelet mean volume (Bld) [Entitic vol] 10.2 fL Normal 9.4-12.4 [facility] Comment on above: Performed By: #### 4 5212 ####[facility] [address] [place] [address] Glenn Gudino M.D. [id number] Platelets (Bld) [#/Vol] 171 10*3/uL Normal 150-400 [facility] Comment on above: Performed By: #### 4 5218 ####[facility] [address] [place] [address] Glenn Gudino M.D. [id number] RBC (Bld) [#/Vol] 2.76 10*6/uL Low 4.00-5.20 [facility] Comment on above: Performed By: #### 4 5218 ####[facility] [address] [place] [address] Glenn Gudino M.D. [id number] WBC (Bld) [#/Vol] 12.32 10*3/uL High 4.50-11.00 [facility] Comment on above: Performed By: #### 4 5218 ####[facility] [address] [place] [address] Glenn Gudino M.D. [id number] AUTO NRBC 0.0 % Normal [facility] Comment on above: Performed By: #### 4 5218 ####[facility] [address] [place], [place] [address] Glenn Gudino M.D. [id number] AUTO NRBC ABS COUNT 0.00 K/mcL Normal 0.00-0.00 [facility] Comment on above: Performed By: #### 4 5218 ####[facility] [address] [place], [place] [address] Glenn Gudino M.D. [id number] Erythrocyte distribution width (RBC) [Ratio] 19.0 % High 11.6-14.8 [facility] Comment on above: Performed By: #### 4 5218 ####[facility] [address] [place], [place] [address] Glenn Gudino M.D. [id number] Hematocrit (Bld) [Volume fraction] 23.5 % Low 36.0-46.0 [facility] Comment on above: Performed By: #### 4 5218 ####[facility] [address] [place], [place] [address] Glenn Gudino M.D. [id number] Hemoglobin (Bld) [Mass/Vol] 7.4 g/dL Low 12.0-16.0 [facility] Comment on above: Result Comment: Zuleima pheral smear reviewed manually Performed By: #### 4 5218 ####[facility] [address] [place] [address] Glenn Gudino M.D. [id number] MCH (RBC) [Entitic mass] 27.9 pg Normal 26.0-34.0 [facility] Comment on above: Performed By: #### 4 5218 ####[facility] [address] [place] [address] Glenn Gudino M.D. [id number] MCV (RBC) [Entitic vol] 88.7 fL Normal 80.0-100.0 [facility] Comment on above: Performed By: #### 4 5218 ####[facility] [address] [place], [place] [address] Glenn Gudino M.D. [id number] MEAN CORPUSCULAR HEMOGLOBIN CONC 31.5 g/dL Normal 31.0-37.0 [facility] Comment on above: Performed By: #### 4 5218 ####[facility] [address] [place], [place] [address] Glenn Gudino M.D. [id number] Platelet mean volume (Bld) [Entitic vol] 10.5 fL Normal 9.4-12.4 [facility] Comment on above: Performed By: #### 4 5218 ####[facility] [address] [place], [place] [address] Glenn Gudino M.D. [id number] Platelets (Bld) [#/Vol] 138 10*3/uL Low 150-400 [facility] Comment on above: Performed By: #### 4 5218 ####[facility] [address] [place] [address] Glenn Gudino M.D. [id number] RBC (Bld) [#/Vol] 2.65 10*6/uL Low 4.00-5.20 [facility] Comment on above: Performed By: #### 4 5218 ####[facility] [address] [place] [address] Glenn Gudino M.D. [id number] WBC (Bld) [#/Vol] 9.43 10*3/uL Normal 4.50-11.00 [facility] Comment on above: Performed By: #### 4 5218 ####[facility] [address] [place] [address] Glenn Gudino M.D. [id number] CONSULTon 02-02-2024 CONSULT Normal [facility] CONSULT Normal [facility] CONSULT Normal [facility] CONSULT Normal [facility] CT ANGIOGRAM ABDOMEN PELVISo n 02-02-2024 CT ANGIOGRAM ABDOMEN PELVIS Normal [facility] Comment on above: Order Comment: Injur y/Trauma or Illness?:Illness/OtherHow long have you had these symptoms (acute/chronic)?:AcuteReason for exam?:hemoperitoneum on non con scan, recent RP open AAA repair/EVAR explantType of Exam?:InitialAdditional signs and symptoms?:na CT CHEST ABDOMEN PELVIS WITH OUT CONTRASTon 02-02-2024 CT CHEST ABDOMEN PELVIS WITHOUT CONTRAST Normal [facility] Comment on above: Order Comment: Injur y/Trauma [...] 02-02-2024 Magnesium [Mass/Vol] 2.1 mg/dL Normal 1.6-2.4 [facility] Comment on above: Performed By: #### 4 6109 ####[facility] [address] [place] [address] Glenn Gudino M.D. [id number] POC GLUCOSE - [facility] 024 Glucose [Mass/Vol] 114 mg/dL High [address] [place] [address] Comment on above: Performed By: #### 4 6932 ####[facility] [address] [place] [address] [id number] RM[facility] Glucose [Mass/Vol] 110 mg/dL High [address] [place] [address] Comment on above: Performed By: #### 4 6932 ####[facility] [address] [place] [address] [id number] [facility] Glucose [Mass/Vol] 113 mg/dL High [address] [place] [address] Comment on above: Performed By: #### 4 7835 ####[facility] [address] [place] [address] [id number] [facility] Glucose [Mass/Vol] 128 mg/dL High [address] [place] [address] Comment on above: Performed By: #### 4 0516 ####[facility] [address] [place] [address] [id number] [facility] Glucose [Mass/Vol] 173 mg/dL High [address] [place] [address] Comment on above: Performed By: #### 4 0585 ####[facility] [address] [place] [address] [id number] [facility] Glucose [Mass/Vol] 82 mg/dL Normal [address] [place] [address] Comment on above: Performed By: #### 4 6932 ####[facility] [address] [place] [address] [id number] [facility] RENAL FUNCTION PANELon 02-01 Albumin [Mass/Vol] 2.3 g/dL Low 3.2-5.2 [facility] Comment on above: Order Comment: [facility] has implemented the eGFR calculation approach that does not have a coefficient for race that conforms to the NKF-ASN Task Force Recommendations. Performed By: #### 4 6449 ####[facility] [address] [place] [address] Glenn Gudino M.D. [id number] Anion gap [Moles/Vol] 14 mmol/L Normal 10-20 [facility] Comment on above: Order Comment: [facility] has implemented the eGFR calculation approach that does not have a coefficient for race that conforms to the NKF-ASN Task Force Recommendations. Performed By: #### 4 6449 ####[facility] [address] [place] [address] Glenn Gudino M.D. [id number] Calcium [Mass/Vol] 7.5 mg/dL Low 8.4-10.2 [facility] Comment on above: Order Comment: [facility] has implemented the eGFR calculation approach that does not have a coefficient for race that conforms to the NKF-ASN Task Force Recommendations. Performed By: #### 4 6449 ####[facility] [address] [place], [place] [address] Glenn Gudino M.D. [id number] Chloride [Moles/Vol] 95 mmol/L Low 98-108 [facility] Comment on above: Order Comment: [facility] has implemented the eGFR calculation approach that does not have a coefficient for race that conforms to the NKF-ASN Task Force Recommendations. Performed By: #### 4 6449 ####[facility] [address] [place] [address] Glenn Gudino M.D. [id number] Creatinine [Mass/Vol] 1.98 mg/dL High 0.60-1.10 [facility] Comment on above: Order Comment: [facility] has implemented the eGFR calculation approach that does not have a coefficient for race that conforms to the NKF-ASN Task Force Recommendations. Performed By: #### 4 6449 ####[facility] [address] [place] [address] Glenn Gudino M.D. [id number] EGFR 28 mL/min/1.73 m2 Low >=60 [facility] Comment on above: Order Comment: [facility] has implemented the eGFR calculation approach that does not have a coefficient for race that conforms to the NKF-ASN Task Force Recommendations. Result Comment: Joi mated GFR was calculated using the 2020 CKD-EPI creatinine equation. Performed By: #### 4 6449 ####[facility] [address] [place], [place] [address] Glenn Gudino M.D. [id number] Glucose [Mass/Vol] 157 mg/dL High 65-99 [facility] Comment on above: Order Comment: [facility] has implemented the eGFR calculation approach that does not have a coefficient for race that conforms to the NKF-ASN Task Force Recommendations. Performed By: #### 4 6449 ####[facility] [address] [place] [address] Glenn Gudino M.D. [id number] HCO3 (Bld) [Moles/Vol] 26 mmol/L Normal 21-32 [facility] Comment on above: Order Comment: [facility] has implemented the eGFR calculation approach that does not have a coefficient for race that conforms to the NKF-ASN Task Force Recommendations. Performed By: #### 4 6449 ####[facility] [address] [place] [address] Glenn Gudino M.D. [id number] Phosphate [Mass/Vol] 2.3 mg/dL Low 2.8-4.1 [facility] Comment on above: Order Comment: [facility] has implemented the eGFR calculation approach that does not have a coefficient for race that conforms to the NKF-ASN Task Force Recommendations. Performed By: #### 4 6449 ####[facility] [address] [place] [address] Glenn Gudino M.D. [id number] Potassium [Moles/Vol] 4.7 mmol/L Normal 3.5-5.1 [facility] Comment on above: Order Comment: [facility] has implemented the eGFR calculation approach that does not have a coefficient for race that conforms to the NKF-ASN Task Force Recommendations. Performed By: #### 4 6449 ####[facility] [address] [place], [place] [address] Glenn Gudino M.D. [id number] Sodium [Moles/Vol] 130 mmol/L Low 135-145 [facility] Comment on above: Order Comment: [facility] has implemented the eGFR calculation approach that does not have a coefficient for race that conforms to the NKF-ASN Task Force Recommendations. Performed By: #### 4 6449 ####[facility] [address] [place], [place] [address] Glenn Gudino M.D. [id number] Urea nitrogen [Mass/Vol] 23 mg/dL Normal 8-25 [facility] Comment on above: Order Comment: [facility] has implemented the eGFR calculation approach that does not have a coefficient for race that conforms to the NKF-ASN Task Force Recommendations. Performed By: #### 4 6449 ####[facility] [address] [place], [place] [address] Glenn Gudino M.D. [id number] Urea nitrogen/Creatinine [Mass ratio] 11.6 mg/mg Normal 10.0-20.0 [facility] Comment on above: Order Comment: [facility] has implemented the eGFR calculation approach that does not have a coefficient for race that conforms to the NKF-ASN Task Force Recommendations. Performed By: #### 4 6449 ####[facility] [address] [place], [place] [address] Glenn Gudino M.D. [id number] XR CHEST PA/APon 02-02-2024 XR CHEST PA/AP Normal [facility] Comment on above: Order Comment: Injur y/Trauma or Illness?:Illness/OtherHow long have you had these symptoms (acute/chronic)?:AcuteReason for exam?:chest tube palcementHistory of cancer?:uSurgeries, chemotherapy, or radiation?:uType of Exam?:UnknownAdditional signs and symptoms?:pneumothorax CALCIUM, IONIZEDon CALCIUM IONIZED 4.4 mg/dL Low 4.5-5.3 [facility] Comment on above: Order Comment: Serum , non-CRRT source. Performed By: #### 4 5190 ####[facility] [address] [place], [place] [address] Glenn Gudino M.D. [id number] CBCon 02-01-2024 AUTO NRBC 0.0 % Normal [facility] Comment on above: Performed By: #### 4 5218 ####[facility] [address] [place], [place] [address] Glenn Gudino M.D. [id number] AUTO NRBC ABS COUNT 0.00 K/mcL Normal 0.00-0.00 [facility] Comment on above: Performed By: #### 4 5218 ####[facility] [address] [place], [place] [address] Glenn Gudino M.D. [id number] Erythrocyte distribution width (RBC) [Ratio] 19.1 % High 11.6-14.8 [facility] Comment on above: Performed By: #### 4 5218 ####[facility] [address] [place] [address] Glenn Gudino M.D. [id number] Hematocrit (Bld) [Volume fraction] 25.8 % Low 36.0-46.0 [facility] Comment on above: Performed By: #### 4 5218 ####[facility] [address] [place] [address] Glenn Gudino M.D. [id number] Hemoglobin (Bld) [Mass/Vol] 8.4 g/dL Low 12.0-16.0 [facility] Comment on above: Performed By: #### 4 5218 ####[facility] [address] [place] [address] Glenn Gudino M.D. [id number] MCH (RBC) [Entitic mass] 28.7 pg Normal 26.0-34.0 [facility] Comment on above: Performed By: #### 4 5218 ####[facility] [address] [place] [address] Glenn Gudino M.D. [id number] MCV (RBC) [Entitic vol] 88.1 fL Normal 80.0-100.0 [facility] Comment on above: Performed By: #### 4 5218 ####[facility] [address] [place] [address] Glenn Gudino M.D. [id number] MEAN CORPUSCULAR HEMOGLOBIN CONC 32.6 g/dL Normal 31.0-37.0 [facility] Comment on above: Performed By: #### 4 5218 ####[facility] [address] [place], [place] [address] Glenn Gudino M.D. [id number] Platelet mean volume (Bld) [Entitic vol] 10.2 fL Normal 9.4-12.4 [facility] Comment on above: Performed By: #### 4 5218 ####[facility] [address] [place] [address] Glenn Gudino M.D. [id number] Platelets (Bld) [#/Vol] 109 10*3/uL Low 150-400 [facility] Comment on above: Performed By: #### 4 5218 ####[facility] [address] [place] [address] Glenn Gudino M.D. [id number] RBC (Bld) [#/Vol] 2.93 10*6/uL Low 4.00-5.20 [facility] Comment on above: Performed By: #### 4 5218 ####[facility] [address] [place], [place] [address] Glenn Gudino M.D. [id number] WBC (Bld) [#/Vol] 10.44 10*3/uL Normal 4.50-11.00 [facility] Comment on above: Performed By: #### 4 5218 ####[facility] [address] [place], [place] [address] Glenn Gudino M.D. [id number] H AND Ney 02-01-2024 H AND P Normal [facility] MAGNESIUM LEVELon 02-01-2024 Magnesium [Mass/Vol] 2.3 mg/dL Normal 1.6-2.4 [facility] Comment on above: Performed By: #### 4 6109 ####[facility] [address] [place] [address] Glenn Gudino M.D. [id number] [facility] Glucose [Mass/Vol] 151 mg/dL High 65-99 [facility] Comment on above: Performed By: #### 4 0139 ####[facility] [address] [place] [address] [id number] [facility] Glucose [Mass/Vol] 92 mg/dL Normal 65-99 [facility] Comment on above: Performed By: #### 4 0000 ####[facility] [address] [place] [address] [id number] [facility] Glucose [Mass/Vol] 58 mg/dL Low 65-99 [facility] Comment on above: Performed By: #### 4 2610 ####[facility] [address] [place] [address] [id number] [facility] Glucose [Mass/Vol] 97 mg/dL Normal 65- [facility] Comment on above: Performed By: #### 4 2033 ####[facility] [address] [place] [address] [id number] [facility] Glucose [Mass/Vol] 62 mg/dL Low 65- [facility] Comment on above: Performed By: #### 4 5952 ####[facility] [address] [place] [address] [id number] [facility] Glucose [Mass/Vol] 110 mg/dL High 65- [facility] Comment on above: Performed By: #### 4 7960 ####[facility] [address] [place] [address] [id number] [facility] Glucose [Mass/Vol] 117 mg/dL High 65- [facility] Comment on above: Performed By: #### 4 8785 ####[facility] [address] [place] [address] [id number] [facility] Glucose [Mass/Vol] 166 mg/dL High 65- [facility] Comment on above: Performed By: #### 4 4261 ####[facility] [address] [place] [address] [id number] [facility] Glucose [Mass/Vol] 150 mg/dL High 65-[address] [place] [address] Comment on above: Performed By: #### 4 0177 ####[facility] [address] [place] [address] [id number] [facility] RENAL FUNCTION PANELon 01-31 Albumin [Mass/Vol] 1.8 g/dL Low 3.2-5.2 [facility] Comment on above: Order Comment: [facility] has implemented the eGFR calculation approach that does not have a coefficient for race that conforms to the NKF-ASN Task Force Recommendations. Performed By: #### 4 6449 ####[facility] [address] [place] [address] Glenn Gudino M.D. [id number] Anion gap [Moles/Vol] 11 mmol/L Normal 10-20 [facility] Comment on above: Order Comment: [facility] has implemented the eGFR calculation approach that does not have a coefficient for race that conforms to the NKF-ASN Task Force Recommendations. Performed By: #### 4 6449 ####[facility] [address] [place], [place] [address] Glenn Gudino M.D. [id number] Calcium [Mass/Vol] 7.3 mg/dL Low 8.4-10.2 [facility] Comment on above: Order Comment: [facility] has implemented the eGFR calculation approach that does not have a coefficient for race that conforms to the NKF-ASN Task Force Recommendations. Performed By: #### 4 6449 ####[facility] [address] [place], [place] [address] Glenn Gudino M.D. [id number] Chloride [Moles/Vol] 100 mmol/L Normal 98-108 [facility] Comment on above: Order Comment: [facility] has implemented the eGFR calculation approach that does not have a coefficient for race that conforms to the NKF-ASN Task Force Recommendations. Performed By: #### 4 6449 ####[facility] [address] [place] [address] Glenn Gudino M.D. [id number] Creatinine [Mass/Vol] 2.21 mg/dL High 0.60-1.10 [facility] Comment on above: Order Comment: [facility] has implemented the eGFR calculation approach that does not have a coefficient for race that conforms to the NKF-ASN Task Force Recommendations. Performed By: #### 4 6449 ####[facility] [address] [place] [address] Glenn Gudino M.D. [id number] EGFR 25 mL/min/1.73 m2 Low >=60 [facility] Comment on above: Order Comment: [facility] has implemented the eGFR calculation approach that does not have a coefficient for race that conforms to the NKF-ASN Task Force Recommendations. Result Comment: Joi mated GFR was calculated using the 2020 CKD-EPI creatinine equation. Performed By: #### 4 6449 ####[facility] [address] [place] [address] Glenn Gudino M.D. [id number] Glucose [Mass/Vol] 185 mg/dL High 65-99 [facility] Comment on above: Order Comment: [facility] has implemented the eGFR calculation approach that does not have a coefficient for race that conforms to the NKF-ASN Task Force Recommendations. Performed By: #### 4 6449 ####[facility] [address] [place] [address] Glenn Gudino M.D. [id number] HCO3 (Bld) [Moles/Vol] 27 mmol/L Normal 21-32 [facility] Comment on above: Order Comment: [facility] has implemented the eGFR calculation approach that does not have a coefficient for race that conforms to the NKF-ASN Task Force Recommendations. Performed By: #### 4 6449 ####[facility] [address] [place] [address] Glenn Gudino M.D. [id number] Phosphate [Mass/Vol] 2.7 mg/dL Low 2.8-4.1 [facility] Comment on above: Order Comment: [facility] has implemented the eGFR calculation approach that does not have a coefficient for race that conforms to the NKF-ASN Task Force Recommendations. Performed By: #### 4 6449 ####[facility] [address] [place] [address] Glenn Gudino M.D. [id number] Potassium [Moles/Vol] 5.3 mmol/L High 3.5-5.1 [facility] Comment on above: Order Comment: [facility] has implemented the eGFR calculation approach that does not have a coefficient for race that conforms to the NKF-ASN Task Force Recommendations. Result Comment: Slig htly Hemolyzed Performed By: #### 4 6449 ####[facility] [address] [place] [address] 28536 Glenn Gudino M.D. [id number] Sodium [Moles/Vol] 133 mmol/L Low 135-145 [facility] Comment on above: Order Comment: [facility] has implemented the eGFR calculation approach that does not have a coefficient for race that conforms to the NKF-ASN Task Force Recommendations. Performed By: #### 4 6449 ####[facility] [address] [place], [place] [address] Glenn Gudino M.D. [id number] Urea nitrogen [Mass/Vol] 33 mg/dL High 8-25 [facility] Comment on above: Order Comment: [facility] has implemented the eGFR calculation approach that does not have a coefficient for race that conforms to the NKF-ASN Task Force Recommendations. Performed By: #### 4 6449 ####[facility] [address] [place], [place] [address] Glenn Gudino M.D. [id number] Urea nitrogen/Creatinine [Mass ratio] 14.9 mg/mg Normal 10.0-20.0 [facility] Comment on above: Order Comment: [facility] has implemented the eGFR calculation approach that does not have a coefficient for race that conforms to the NKF-ASN Task Force Recommendations. Performed By: #### 4 6449 ####[facility] [address] [place], [place] [address] Glenn Gudino M.D. [id number] XR CHEST PA/APon 02-01-2024 XR CHEST PA/AP [facility] Comment on above: Order Comment: Injur [...] ANTIBODY IDENTIFICATION-INCo n 01-31-2024 ANTIBODY IDENTIFICATION-INC Normal [facility] Comment on above: Performed By: #### 4 6427_Inconclusive ####[facility] [address] [place] [address] Nurys Oneill MD [id number] [facility] APTT HEPARIN COVERAGEon aPTT Coag (Bld) [Time] 40 s High 23-34 [facility] Comment on above: Order Comment: Thera peutic range for APTT's is 68 - 104 seconds Result Comment: Resu lts checked. Performed By: #### 4 6848 ####[facility] [address] [place] [address] Glenn Gudino M.D. [id number] aPTT Coag (Bld) [Time] 65 s High 23-34 [facility] Comment on above: Order Comment: Thera peutic range for APTT's is 68 - 104 secondsResults checked. Performed By: #### 4 6848 ####[facility] [address] [place] [address] Glenn Gudino M.D. [id number] BASIC METABOLIC PANELon Anion gap [Moles/Vol] 12 mmol/L Normal 10-20 [facility] Comment on above: Order Comment: [facility] has implemented the eGFR calculation approach that does not have a coefficient for race that conforms to the NKF-ASN Task Force Recommendations. Performed By: #### 4 6124 ####[facility] [address] [place] [address] 780[address] Glenn Gudino M.D. [id number] Calcium [Mass/Vol] 8.0 mg/dL Low 8.4-10.2 [facility] Comment on above: Order Comment: [facility] has implemented the eGFR calculation approach that does not have a coefficient for race that conforms to the NKF-ASN Task Force Recommendations. Performed By: #### 4 6124 ####[facility] [address] [place], [place] [address] Glenn Gudino M.D. [id number] Chloride [Moles/Vol] 99 mmol/L Normal 98-108 [facility] Comment on above: Order Comment: [facility] has implemented the eGFR calculation approach that does not have a coefficient for race that conforms to the NKF-ASN Task Force Recommendations. Performed By: #### 4 6124 ####[facility] [address] [place] [address] 88124 Glenn Gudino M.D. [id number] Creatinine [Mass/Vol] 1.47 mg/dL High 0.60-1.10 [facility] Comment on above: Order Comment: [facility] has implemented the eGFR calculation approach that does not have a coefficient for race that conforms to the NKF-ASN Task Force Recommendations. Performed By: #### 4 6124 ####[facility] [address] [place], [place] [address] Glenn Gudino M.D. [id number] EGFR 40 mL/min/1.73 m2 Low >=60 [facility] Comment on above: Order Comment: [facility] has implemented the eGFR calculation approach that does not have a coefficient for race that conforms to the NKF-ASN Task Force Recommendations. Result Comment: Joi mated GFR was calculated using the 2020 CKD-EPI creatinine equation. Performed By: #### 4 6124 ####[facility] [address] [place] [address] 81982 Glenn Gudino M.D. [id number] Glucose [Mass/Vol] 165 mg/dL High 65-99 [facility] Comment on above: Order Comment: [facility] has implemented the eGFR calculation approach that does not have a coefficient for race that conforms to the NKF-ASN Task Force Recommendations. Performed By: #### 4 6124 ####[facility] [address] [place], [place] [address] Glenn Gudino M.D. [id number] HCO3 (Bld) [Moles/Vol] 28 mmol/L Normal 21-32 [facility] Comment on above: Order Comment: [facility] has implemented the eGFR calculation approach that does not have a coefficient for race that conforms to the NKF-ASN Task Force Recommendations. Performed By: #### 4 6124 ####[facility] [address] [place] [address] Glenn Gudino M.D. [id number] Potassium [Moles/Vol] 4.5 mmol/L Normal 3.5-5.1 [facility] Comment on above: Order Comment: [facility] has implemented the eGFR calculation approach that does not have a coefficient for race that conforms to the NKF-ASN Task Force Recommendations. Performed By: #### 4 6124 ####[facility] [address] [place] [address] 70[address] Glenn Gudino M.D. [id number] Sodium [Moles/Vol] 134 mmol/L Low 135-145 [facility] Comment on above: Order Comment: [facility] has implemented the eGFR calculation approach that does not have a coefficient for race that conforms to the NKF-ASN Task Force Recommendations. Performed By: #### 4 6124 ####[facility] [address] [place] [address] Glenn Gudino M.D. [id number] Urea nitrogen [Mass/Vol] 23 mg/dL Normal 8-25 [facility] Comment on above: Order Comment: [facility] has implemented the eGFR calculation approach that does not have a coefficient for race that conforms to the NKF-ASN Task Force Recommendations. Performed By: #### 4 6124 ####[facility] [address] [place] [address] 13910 Glenn Gudino M.D. [id number] Urea nitrogen/Creatinine [Mass ratio] 15.6 mg/mg Normal 10.0-20.0 [facility] Comment on above: Order Comment: [facility] has implemented the eGFR calculation approach that does not have a coefficient for race that conforms to the NKF-ASN Task Force Recommendations. Performed By: #### 4 6124 ####[facility] [address] [place], [place] [address] Glenn Gudino M.D. [id number] CALCIUM, IONIZEDon CALCIUM IONIZED 4.9 mg/dL Normal 4.5-5.3 [facility] Comment on above: Performed By: #### 4 5190 ####[facility] [address] [place] [address] 6[address] Glenn Gudino M.D. [id number] CALCIUM IONIZED 4.5 mg/dL Normal 4.5-5.3 [facility] Comment on above: Order Comment: Serum , non-CRRT source. Performed By: #### 4 5190 ####[facility] [address] [place], [place] [address] Glenn Gudino M.D. [id number] CBCon 01-31-2024 AUTO NRBC 0.0 % Normal [facility] Comment on above: Performed By: #### 4 5218 ####[facility] [address] [place] [address] Glenn Gudino M.D. [id number] AUTO NRBC ABS COUNT 0.00 K/mcL Normal 0.00-0.00 [facility] Comment on above: Performed By: #### 4 5218 ####[facility] [address] [place] [address] Glenn Gudino M.D. [id number] Erythrocyte distribution width (RBC) [Ratio] 18.7 % High 11.6-14.8 [facility] Comment on above: Performed By: #### 4 5218 ####[facility] [address] [place] [address] Glenn Gudino M.D. [id number] Hematocrit (Bld) [Volume fraction] 26.9 % Low 36.0-46.0 [facility] Comment on above: Result Comment: Resu lts checked Performed By: #### 4 5218 ####[facility] [address] [place] [address] Glenn Gudino M.D. [id number] Hemoglobin (Bld) [Mass/Vol] 9.0 g/dL Low 12.0-16.0 [facility] Comment on above: Result Comment: Resu lts checked Performed By: #### 4 5218 ####[facility] [address] [place] [address] Glenn Gudino M.D. [id number] MCH (RBC) [Entitic mass] 28.6 pg Normal 26.0-34.0 [facility] Comment on above: Performed By: #### 4 5218 ####[facility] [address] [place], [place] [address] Glenn Gudino M.D. [id number] MCV (RBC) [Entitic vol] 85.4 fL Normal 80.0-100.0 [facility] Comment on above: Result Comment: Resu lts checked Performed By: #### 4 5218 ####[facility] [address] [place], [place] [address] Glenn Gudino M.D. [id number] MEAN CORPUSCULAR HEMOGLOBIN CONC 33.5 g/dL Normal 31.0-37.0 [facility] Comment on above: Performed By: #### 4 5218 ####[facility] [address] [place] [address] Glenn Gudino M.D. [id number] Platelet mean volume (Bld) [Entitic vol] 9.9 fL Normal 9.4-12.4 [facility] Comment on above: Performed By: #### 4 5218 ####[facility] [address] [place], [place] [address] Glenn Gudino M.D. [id number] Platelets (Bld) [#/Vol] 103 10*3/uL Low 150-400 [facility] Comment on above: Performed By: #### 4 5218 ####[facility] [address] [place], [place] [address] Glenn Gudino M.D. [id number] RBC (Bld) [#/Vol] 3.15 10*6/uL Low 4.00-5.20 [facility] Comment on above: Performed By: #### 4 5218 ####[facility] [address] [place], [place] [address] Glenn Gudino M.D. [id number] WBC (Bld) [#/Vol] 11.27 10*3/uL High 4.50-11.00 [facility] Comment on above: Performed By: #### 4 5218 ####[facility] [address] [place], [place] [address] Glenn Gudino M.D. [id number] AUTO NRBC 0.0 % Normal [facility] Comment on above: Performed By: #### 4 5218 ####[facility] [address] [place], [place] [address] Glenn Gudino M.D. [id number] AUTO NRBC ABS COUNT 0.00 K/mcL Normal 0.00-0.00 [facility] Comment on above: Performed By: #### 4 5218 ####[facility] [address] [place] [address] Glenn Gudino M.D. [id number] Erythrocyte distribution width (RBC) [Ratio] 15.9 % High 11.6-14.8 [facility] Comment on above: Performed By: #### 4 5218 ####[facility] [address] [place] [address] Glenn Gudino M.D. [id number] Hematocrit (Bld) [Volume fraction] 19.9 % Low 36.0-46.0 [facility] Comment on above: Performed By: #### 4 5218 ####[facility] [address] [place], [place] [address] Glenn Gudino M.D. [id number] Hemoglobin (Bld) [Mass/Vol] 6.4 g/dL Off scale low 12.0-16.0 [facility] Comment on above: Result Comment: Resu lts called and read back verified by:.[email or web address] to [email or web address] [id number] Performed By: #### 4 5218 ####[facility] [address] [place], [place] [address] Glenn Gudino M.D. [id number] MCH (RBC) [Entitic mass] 30.2 pg Normal 26.0-34.0 [facility] Comment on above: Performed By: #### 4 5218 ####[facility] [address] [place], [place] [address] Glenn Gudino M.D. [id number] MCV (RBC) [Entitic vol] 93.9 fL Normal 80.0-100.0 [facility] Comment on above: Performed By: #### 4 5218 ####[facility] [address] [place] [address] 53971 Glenn Gudino M.D. [id number] MEAN CORPUSCULAR HEMOGLOBIN CONC 32.2 g/dL Normal 31.0-37.0 [facility] Comment on above: Performed By: #### 4 5218 ####[facility] [address] [place], [place] [address] Glenn Gudino M.D. [id number] Platelet mean volume (Bld) [Entitic vol] 10.7 fL Normal 9.4-12.4 [facility] Comment on above: Performed By: #### 4 5218 ####[facility] [address] [place], [place] [address] Glenn Gudino M.D. [id number] Platelets (Bld) [#/Vol] 104 10*3/uL Low 150-400 [facility] Comment on above: Performed By: #### 4 5218 ####[facility] [address] [place], [place] [address] Glenn Gudino M.D. [id number] RBC (Bld) [#/Vol] 2.12 10*6/uL Low 4.00-5.20 [facility] Comment on above: Performed By: #### 4 5218 ####[facility] [address] [place] [address] Glenn Gudino M.D. [id number] WBC (Bld) [#/Vol] 9.91 10*3/uL Normal 4.50-11.00 [facility] Comment on above: Performed By: #### 4 5218 ####[facility] [address] [place] [address] 72031 Glenn Gudino M.D. [id number] AUTO NRBC 0.0 % Normal [facility] Comment on above: Performed By: #### 4 5218 ####[facility] [address] [place], [place] [address] Glenn Gudino M.D. [id number] AUTO NRBC ABS COUNT 0.00 K/mcL Normal 0.00-0.00 [facility] Comment on above: Performed By: #### 4 5218 ####[facility] [address] [place] [address] Glenn Gudino M.D. [id number] Erythrocyte distribution width (RBC) [Ratio] 16.0 % High 11.6-14.8 [facility] Comment on above: Performed By: #### 4 5218 ####[facility] [address] [place] [address] Glenn Gudino M.D. [id number] Hematocrit (Bld) [Volume fraction] 21.4 % Low 36.0-46.0 [facility] Comment on above: Performed By: #### 4 5218 ####[facility] [address] [place], [place] [address] Glenn Gudino M.D. [id number] Hemoglobin (Bld) [Mass/Vol] 6.9 g/dL Off scale low 12.0-16.0 [facility] Comment on above: Result Comment: Resu lts called and read back verified by:.[email or web address]. Performed By: #### 4 5218 ####[facility] [address] [place], [place] [address] Glenn Gudino M.D. [id number] MCH (RBC) [Entitic mass] 30.0 pg Normal 26.0-34.0 [facility] Comment on above: Performed By: #### 4 5218 ####[facility] [address] [place], [place] [address] Glenn Gudino M.D. [id number] MCV (RBC) [Entitic vol] 93.0 fL Normal 80.0-100.0 [facility] Comment on above: Performed By: #### 4 5218 ####[facility] [address] [place] [address] Glenn Gudino M.D. [id number] MEAN CORPUSCULAR HEMOGLOBIN CONC 32.2 g/dL Normal 31.0-37.0 [facility] Comment on above: Performed By: #### 4 5218 ####[facility] [address] [place] [address] Glenn Gudino M.D. [id number] Platelet mean volume (Bld) [Entitic vol] 10.4 fL Normal 9.4-12.4 [facility] Comment on above: Performed By: #### 4 5218 ####[facility] [address] [place] [address] Glenn Gudino M.D. [id number] Platelets (Bld) [#/Vol] 116 10*3/uL Low 150-400 [facility] Comment on above: Result Comment: Resu lts checked Performed By: #### 4 5218 ####[facility] [address] [place], [place] [address] Glenn Gudino M.D. [id number] RBC (Bld) [#/Vol] 2.30 10*6/uL Low 4.00-5.20 [facility] Comment on above: Performed By: #### 4 5218 ####[facility] [address] [place], [place] [address] Glenn Gudino M.D. [id number] WBC (Bld) [#/Vol] 8.81 10*3/uL Normal 4.50-11.00 [facility] Comment on above: Performed By: #### 4 5218 ####[facility] [address] [place] [address] Glenn Gudino M.D. [id number] CLOSTRIDIOIDES DIFFICILE MENG TINGon 01-31-2024 CLOSTRIDIOIDES DIFFICILE TESTING TOXIGENIC C. DIFFICILE BY PCR DETECTED Toxigenic C. difficile detected in stool. Correlation of test results with patient clinical symptoms is suggested. Young children <3 years of age have an asymptomatic carriage rate as high as 40%. Abnormal [facility] Comment on above: Performed By: #### 4 8543 ####[facility] [address] [place], [place] [address] Glenn Gudino M.D. [id number] CONSULTon 01-31-2024 CONSULT Normal [facility] CV IR DIALYSIS CATHETER INSE RTION TUNNELEDon 01-31-2024 CV IR DIALYSIS CATHETER INSERTION TUNNELED Normal [facility] MAGNESIUM LEVELon 01-31-2024 Magnesium [Mass/Vol] 1.9 mg/dL Normal 1.6-2.4 [facility] Comment on above: Performed By: #### 4 6109 ####[facility] [address] [place] [address] 8[address] Glenn Gudino M.D. [id number] Magnesium [Mass/Vol] 1.8 mg/dL Normal 1.6-2.4 [facility] Comment on above: Performed By: #### 4 6109 ####[facility] [address] [place] [address] 45799 Glenn Gudino M.D. [id number] Magnesium [Mass/Vol] 1.8 mg/dL Normal 1.6-2.4 [facility] Comment on above: Performed By: #### 4 6109 ####[facility] [address] [place] [address] Glenn Gudino M.D. [id number] PHOSPHORUSon 01-31-2024 Phosphate [Mass/Vol] 1.9 mg/dL Low 2.8-4.1 [facility] Comment on above: Performed By: #### 4 6299 ####[facility] [address] [place] [address] Glenn Gudino M.D. [id number] POC GLUCOSE - [facility] 024 Glucose [Mass/Vol] 158 mg/dL High [address] [place] [address] Comment on above: Performed By: #### 4 6983 ####[facility] [address] [place] [address] [id number] [facility] Glucose [Mass/Vol] 113 mg/dL High [address] [place] [address] Comment on above: Performed By: #### 4 1407 ####[facility] [address] [place] [address] [id number] [facility] Glucose [Mass/Vol] 97 mg/dL Normal [address] [place] [address] Comment on above: Performed By: #### 4 9233 ####[facility] [address] [place] [address] [id number] [facility] Glucose [Mass/Vol] 134 mg/dL High [address] [place] [address] Comment on above: Performed By: #### 4 3444 ####[facility] [address] [place] [address] [id number] [facility] Glucose [Mass/Vol] 68 mg/dL Normal [address] [place] [address] Comment on above: Performed By: #### 4 7757 ####[facility] [address] [place] [address] [id number] [facility] Glucose [Mass/Vol] 157 mg/dL High [address] [place] [address] Comment on above: Performed By: #### 4 1829 ####[facility] [address] [place] [address] [id number] [facility] Glucose [Mass/Vol] 117 mg/dL High [address] [place] [address] Comment on above: Performed By: #### 4 4063 ####[facility] [address] [place] [address] [id number] [facility] RENAL FUNCTION PANELon 01-30 Albumin [Mass/Vol] 2.4 g/dL Low 3.2-5.2 [facility] Comment on above: Order Comment: [facility] has implemented the eGFR calculation approach that does not have a coefficient for race that conforms to the NKF-ASN Task Force Recommendations. Performed By: #### 4 6449 ####[facility] [address] [place], [place] [address] Glenn Gudino M.D. [id number] Anion gap [Moles/Vol] 11 mmol/L Normal 10-20 [facility] Comment on above: Order Comment: [facility] has implemented the eGFR calculation approach that does not have a coefficient for race that conforms to the NKF-ASN Task Force Recommendations. Performed By: #### 4 6449 ####[facility] [address] [place] [address] Glenn Gudino M.D. [id number] Calcium [Mass/Vol] 7.2 mg/dL Low 8.4-10.2 [facility] Comment on above: Order Comment: [facility] has implemented the eGFR calculation approach that does not have a coefficient for race that conforms to the NKF-ASN Task Force Recommendations. Performed By: #### 4 6449 ####[facility] [address] [place] [address] 11955 Glenn Gudino M.D. [id number] Chloride [Moles/Vol] 100 mmol/L Normal 98-108 [facility] Comment on above: Order Comment: [facility] has implemented the eGFR calculation approach that does not have a coefficient for race that conforms to the NKF-ASN Task Force Recommendations. Performed By: #### 4 6449 ####[facility] [address] [place] [address] 11567 Glenn Gudino M.D. [id number] Creatinine [Mass/Vol] 1.17 mg/dL Normal 0.60-1.10 [facility] Comment on above: Order Comment: [facility] has implemented the eGFR calculation approach that does not have a coefficient for race that conforms to the NKF-ASN Task Force Recommendations. Performed By: #### 4 6449 ####[facility] [address] [place] [address] 16592 Glenn Gudino M.D. [id number] EGFR 53 mL/min/1.73 m2 Low >=60 [facility] Comment on above: Order Comment: [facility] has implemented the eGFR calculation approach that does not have a coefficient for race that conforms to the NKF-ASN Task Force Recommendations. Result Comment: Joi mated GFR was calculated using the 2020 CKD-EPI creatinine equation. Performed By: #### 4 6449 ####[facility] [address] [place], [place] [address] Glenn Gudino M.D. [id number] Glucose [Mass/Vol] 160 mg/dL High 65-99 [facility] Comment on above: Order Comment: [facility] has implemented the eGFR calculation approach that does not have a coefficient for race that conforms to the NKF-ASN Task Force Recommendations. Performed By: #### 4 6449 ####[facility] [address] [place] [address] Glenn Gudino M.D. [id number] HCO3 (Bld) [Moles/Vol] 30 mmol/L Normal 21-32 [facility] Comment on above: Order Comment: [facility] has implemented the eGFR calculation approach that does not have a coefficient for race that conforms to the NKF-ASN Task Force Recommendations. Performed By: #### 4 6449 ####[facility] [address] [place] [address] Glenn Gudino M.D. [id number] Phosphate [Mass/Vol] 1.4 mg/dL Low 2.8-4.1 [facility] Comment on above: Order Comment: [facility] has implemented the eGFR calculation approach that does not have a coefficient for race that conforms to the NKF-ASN Task Force Recommendations. Performed By: #### 4 6449 ####[facility] [address] [place] [address] 32674 Glenn Gudino M.D. [id number] Potassium [Moles/Vol] 4.1 mmol/L Normal 3.5-5.1 [facility] Comment on above: Order Comment: [facility] has implemented the eGFR calculation approach that does not have a coefficient for race that conforms to the NKF-ASN Task Force Recommendations. Performed By: #### 4 6449 ####[facility] [address] [place] [address] 61358 Glenn Gudino M.D. [id number] Sodium [Moles/Vol] 137 mmol/L Normal 135-145 [facility] Comment on above: Order Comment: [facility] has implemented the eGFR calculation approach that does not have a coefficient for race that conforms to the NKF-ASN Task Force Recommendations. Performed By: #### 4 6449 ####[facility] [address] [place] [address] 18545 Glenn Gudino M.D. [id number] Urea nitrogen [Mass/Vol] 17 mg/dL Normal 8-25 [facility] Comment on above: Order Comment: [facility] has implemented the eGFR calculation approach that does not have a coefficient for race that conforms to the NKF-ASN Task Force Recommendations. Performed By: #### 4 6449 ####[facility] [address] [place] [address] 95113 Glenn Gudino M.D. [id number] Urea nitrogen/Creatinine [Mass ratio] 14.5 mg/mg Normal 10.0-20.0 [facility] Comment on above: Order Comment: [facility] has implemented the eGFR calculation approach that does not have a coefficient for race that conforms to the NKF-ASN Task Force Recommendations. Performed By: #### 4 6449 ####[facility] [address] [place], [place] [address] Glenn Gudino M.D. [id number] TYPE AND SCREENon 01-31-2024 TYPE AND SCREEN ABORH: O Positive AB SCREEN: Positive EXPIRATION DATE: 02/03/2024 23:59 EST Normal [facility] Comment on above: Performed By: #### 4 6619 ####[facility] [address] [place] [address] Nurys Oneill MD [id number] RMHTS XR CHEST PA/APon 01-31-2024 XR CHEST PA/AP [facility] Comment on above: Order Comment: Injur y/Trauma or Illness?:Illness/OtherHow long have you had these symptoms (acute/chronic)?:AcuteReason for exam?:chest tube palcement, pneumothoraxHistory of cancer?:uSurgeries, chemotherapy, or radiation?:uType of Exam?:Subsequent/Follow-upAdditional signs and symptoms?:chest tube palcement, pneumothorax APTT HEPARIN COVERAGEon aPTT Coag (Bld) [Time] 88 s High 23-34 Ri [facility] Comment on above: Order Comment: Thera peutic range for APTT's is 68 - 104 seconds Performed By: #### 4 6848 ####[facility] [address] [place], [place] [address] Glenn Gudino M.D. [id number] CALCIUM, IONIZEDon CALCIUM IONIZED 4.4 mg/dL Low 4.5-5.3 [facility] Comment on above: Order Comment: Serum , non-CRRT source. Performed By: #### 4 5190 ####[facility] [address] [place], [place] [address] Glenn Gudino M.D. [id number] CBCon 01-30-2024 AUTO NRBC 0.0 % [facility] Comment on above: Performed By: #### 4 [id number] ####[facility] [address] [place], [place] [address] Glenn Gudino M.D. [id number] AUTO NRBC ABS COUNT 0.00 K/mcL Normal 0.00-0.00 [facility] Comment on above: Performed By: #### 4 [id number] ####[facility] [address] [place] [address] Glenn Gudino M.D. [id number] Erythrocyte distribution width (RBC) [Ratio] 16.0 % High 11.6-14.8 [facility] Comment on above: Performed By: #### 4 [id number] ####[facility] [address] [place] [address] Glenn Gudino M.D. [id number] Hematocrit (Bld) [Volume fraction] 23.2 % Low 36.0-46.0 [facility] Comment on above: Performed By: #### 4 [id number] ####[facility] [address] [place] [address] Glenn Gudino M.D. [id number] Hemoglobin (Bld) [Mass/Vol] 7.5 g/dL Low 12.0-16.0 [facility] Comment on above: Performed By: #### 4 [id number] ####[facility] [address] [place] [address] Glenn Gudino M.D. [id number] MCH (RBC) [Entitic mass] 29.5 pg Normal 26.0-34.0 [facility] Comment on above: Performed By: #### 4 [id number] ####[facility] [address] [place], [place] [address] Glenn Gudino M.D. [id number] MCV (RBC) [Entitic vol] 91.3 fL Normal 80.0-100.0 [facility] Comment on above: Performed By: #### 4 [id number] ####[facility] [address] [place], [place] [address]Karma Gudino M.D. [id number] MEAN CORPUSCULAR HEMOGLOBIN CONC 32.3 g/dL Normal 31.0-37.0 [facility] Comment on above: Performed By: #### 4 [id number] ####[facility] [address] [place] [address] 38241 Glenn Gudino M.D. [id number] Platelet mean volume (Bld) [Entitic vol] 10.2 fL Normal 9.4-12.4 [facility] Comment on above: Performed By: #### 4 [id number] ####[facility] [address] [place], [place] [address] Glenn Gudino M.D. [id number] Platelets (Bld) [#/Vol] 106 10*3/uL Low 150-400 [facility] Comment on above: Result Comment: Resu lts checked Performed By: #### 4 [id number] ####[facility] [address] [place], [place] [address] Glenn Gudino M.D. [id number] RBC (Bld) [#/Vol] 2.54 10*6/uL Low 4.00-5.20 [facility] Comment on above: Performed By: #### 4 [id number] ####[facility] [address] [place], [place] [address] Glenn Gudino M.D. [id number] WBC (Bld) [#/Vol] 11.63 10*3/uL High 4.50-11.00 [facility] Comment on above: Performed By: #### 4 [id number] ####[facility] [address] [place] [address] 43137 Glenn Gudino M.D. [id number] HEMOGLOBIN AND HEMATOCRITon 01-30-2024 Hematocrit (Bld) [Volume fraction] 26.4 % Low 36.0-46.0 [facility] Comment on above: Performed By: #### 4 6909 ####[facility] [address] [place] [address] 01308 Glenn Gudino M.D. [id number] Hemoglobin (Bld) [Mass/Vol] 8.8 g/dL Low 12.0-16.0 [facility] Comment on above: Performed By: #### 4 6909 ####[facility] [address] [place] [address] Glenn Gudino M.D. [id number] MAGNESIUM LEVELon 01-30-2024 Magnesium [Mass/Vol] 2.0 mg/dL Normal 1.6-2.4 [facility] Comment on above: Performed By: #### 4 6109 ####[facility] [address] [place], [place] [address] Glenn Gudino M.D. [id number] POC GLUCOSE - [facility] 024 Glucose [Mass/Vol] 165 mg/dL [address] Comment on above: Performed By: #### 4 6932 ####[facility] [address] [place] [address] [id number] [facility] Glucose [Mass/Vol] 137 mg/dL [address] Comment on above: Performed By: #### 4 6932 ####[facility] [address] [place] [address] [id number] [facility] Glucose [Mass/Vol] 129 mg/dL [address] Comment on above: Performed By: #### 4 4905 ####[facility] [address] [place] [address] [id number] [facility] Glucose [Mass/Vol] 159 mg/dL [address] Comment on above: Performed By: #### 4 0194 ####[facility] [address] [place] [address] [id number] [facility] Glucose [Mass/Vol] 151 mg/dL [address] Comment on above: Performed By: #### 4 6932 ####[facility] [address] [place] [address] [id number] RMOC Glucose [Mass/Vol] 157 mg/dL High 65-99 [facility] Comment on above: Performed By: #### 4 6932 ####[facility] [address] [place] [address] [id number] [facility]29 Albumin [Mass/Vol] 2.1 g/dL Low 3.2-5.2 [facility] Comment on above: Order Comment: [facility] has implemented the eGFR calculation approach that does not have a coefficient for race that conforms to the NKF-ASN Task Force Recommendations. Performed By: #### 4 6449 ####[facility] [address] [place] [address] Glenn Gudino M.D. [id number] Anion gap [Moles/Vol] 11 mmol/L Normal 10-20 [facility] Comment on above: Order Comment: [facility] has implemented the eGFR calculation approach that does not have a coefficient for race that conforms to the NKF-ASN Task Force Recommendations. Performed By: #### 4 6449 ####[facility] [address] [place] [address] Glenn Gudino M.D. [id number] Calcium [Mass/Vol] 7.3 mg/dL Low 8.4-10.2 [facility] Comment on above: Order Comment: [facility] has implemented the eGFR calculation approach that does not have a coefficient for race that conforms to the NKF-ASN Task Force Recommendations. Performed By: #### 4 6449 ####[facility] [address] [place], [place] [address] Glenn Gudino M.D. [id number] Chloride [Moles/Vol] 102 mmol/L Normal 98-108 [facility] Comment on above: Order Comment: [facility] has implemented the eGFR calculation approach that does not have a coefficient for race that conforms to the NKF-ASN Task Force Recommendations. Performed By: #### 4 6449 ####[facility] [address] [place] [address] 80186 Glenn Gudino M.D. [id number] Creatinine [Mass/Vol] 2.40 mg/dL High 0.60-1.10 [facility] Comment on above: Order Comment: [facility] has implemented the eGFR calculation approach that does not have a coefficient for race that conforms to the NKF-ASN Task Force Recommendations. Performed By: #### 4 6449 ####[facility] [address] [place] [address] 69404 Glenn Gudino M.D. [id number] EGFR 22 mL/min/1.73 m2 Low >=60 [facility] Comment on above: Order Comment: [facility] has implemented the eGFR calculation approach that does not have a coefficient for race that conforms to the NKF-ASN Task Force Recommendations. Result Comment: Joi mated GFR was calculated using the 2020 CKD-EPI creatinine equation. Performed By: #### 4 6449 ####[facility] [address] [place] [address] 51316 Glenn Gudino M.D. [id number] Glucose [Mass/Vol] 139 mg/dL High 65-99 [facility] Comment on above: Order Comment: [facility] has implemented the eGFR calculation approach that does not have a coefficient for race that conforms to the NKF-ASN Task Force Recommendations. Performed By: #### 4 6449 ####[facility] [address] [place] [address] 13603 Glenn Gudino M.D. [id number] HCO3 (Bld) [Moles/Vol] 28 mmol/L Normal 21-32 [facility] Comment on above: Order Comment: [facility] has implemented the eGFR calculation approach that does not have a coefficient for race that conforms to the NKF-ASN Task Force Recommendations. Performed By: #### 4 6449 ####[facility] [address] [place] [address] 26443 Glenn Gudino M.D. [id number] Phosphate [Mass/Vol] 2.8 mg/dL Normal 2.8-4.1 [facility] Comment on above: Order Comment: [facility] has implemented the eGFR calculation approach that does not have a coefficient for race that conforms to the NKF-ASN Task Force Recommendations. Performed By: #### 4 6449 ####[facility] [address] [place] [address] 42488 Glenn Gudino M.D. [id number] Potassium [Moles/Vol] 5.1 mmol/L Normal 3.5-5.1 [facility] Comment on above: Order Comment: [facility] has implemented the eGFR calculation approach that does not have a coefficient for race that conforms to the NKF-ASN Task Force Recommendations. Result Comment: Slig htly Hemolyzed Performed By: #### 4 6449 ####[facility] [address] [place] [address] 29758 Glenn Gudino M.D. [id number] Sodium [Moles/Vol] 136 mmol/L Normal 135-145 [facility] Comment on above: Order Comment: [facility] has implemented the eGFR calculation approach that does not have a coefficient for race that conforms to the NKF-ASN Task Force Recommendations. Performed By: #### 4 6449 ####[facility] [address] [place] [address] 17481 Glenn Gudino M.D. [id number] Urea nitrogen [Mass/Vol] 36 mg/dL High 8-25 [facility] Comment on above: Order Comment: [facility] has implemented the eGFR calculation approach that does not have a coefficient for race that conforms to the NKF-ASN Task Force Recommendations. Performed By: #### 4 6449 ####[facility] [address] [place] [address] 57837 Glenn Gudino M.D. [id number] Urea nitrogen/Creatinine [Mass ratio] 15.0 mg/mg Normal 10.0-20.0 [facility] Comment on above: Order Comment: [facility] has implemented the eGFR calculation approach that does not have a coefficient for race that conforms to the NKF-ASN Task Force Recommendations. Performed By: #### 4 6449 ####[facility] [address] [place] [address] 17427 Glenn Gudino M.D. [id number] Albumin [Mass/Vol] 2.1 g/dL Low 3.2-5.2 [facility] Comment on above: Order Comment: [facility] has implemented the eGFR calculation approach that does not have a coefficient for race that conforms to the NKF-ASN Task Force Recommendations. Performed By: #### 4 6449 ####[facility] [address] [place] [address] 84369 Glenn Gudino M.D. [id number] Anion gap [Moles/Vol] 12 mmol/L Normal 10-20 [facility] Comment on above: Order Comment: [facility] has implemented the eGFR calculation approach that does not have a coefficient for race that conforms to the NKF-ASN Task Force Recommendations. Performed By: #### 4 6449 ####[facility] [address] [place] [address] 95893 Glenn Gudino M.D. [id number] Calcium [Mass/Vol] 7.5 mg/dL Low 8.4-10.2 [facility] Comment on above: Order Comment: [facility] has implemented the eGFR calculation approach that does not have a coefficient for race that conforms to the NKF-ASN Task Force Recommendations. Performed By: #### 4 6449 ####[facility] [address] [place] [address] 39098 Glenn Gudino M.D. [id number] Chloride [Moles/Vol] 99 mmol/L Normal 98-108 [facility] Comment on above: Order Comment: [facility] has implemented the eGFR calculation approach that does not have a coefficient for race that conforms to the NKF-ASN Task Force Recommendations. Performed By: #### 4 6449 ####[facility] [address] [place] [address] 07298 Glenn Gudino M.D. [id number] Creatinine [Mass/Vol] 2.02 mg/dL High 0.60-1.10 [facility] Comment on above: Order Comment: [facility] has implemented the eGFR calculation approach that does not have a coefficient for race that conforms to the NKF-ASN Task Force Recommendations. Performed By: #### 4 6449 ####[facility] [address] [place], [place] [address] Glenn Gudino M.D. [id number] EGFR 28 mL/min/1.73 m2 Low >=60 [facility] Comment on above: Order Comment: [facility] has implemented the eGFR calculation approach that does not have a coefficient for race that conforms to the NKF-ASN Task Force Recommendations. Result Comment: Joi mated GFR was calculated using the 2020 CKD-EPI creatinine equation. Performed By: #### 4 6449 ####[facility] [address] [place] [address] 12232 Glenn Gudino M.D. [id number] Glucose [Mass/Vol] 150 mg/dL High 65-99 [facility] Comment on above: Order Comment: [facility] has implemented the eGFR calculation approach that does not have a coefficient for race that conforms to the NKF-ASN Task Force Recommendations. Performed By: #### 4 6449 ####[facility] [address] [place] [address] 23198 Glenn Gudino M.D. [id number] HCO3 (Bld) [Moles/Vol] 27 mmol/L Normal 21-32 [facility] Comment on above: Order Comment: [facility] has implemented the eGFR calculation approach that does not have a coefficient for race that conforms to the NKF-ASN Task Force Recommendations. Performed By: #### 4 6449 ####[facility] [address] [place] [address] 13418 Glenn Gudino M.D. [id number] Phosphate [Mass/Vol] 2.6 mg/dL Low 2.8-4.1 [facility] Comment on above: Order Comment: [facility] has implemented the eGFR calculation approach that does not have a coefficient for race that conforms to the NKF-ASN Task Force Recommendations. Performed By: #### 4 6449 ####[facility] [address] [place] [address] 13508 Glenn Gudino M.D. [id number] Potassium [Moles/Vol] 4.3 mmol/L Normal 3.5-5.1 [facility] Comment on above: Order Comment: [facility] has implemented the eGFR calculation approach that does not have a coefficient for race that conforms to the NKF-ASN Task Force Recommendations. Performed By: #### 4 6449 ####[facility] [address] [place] [address] 02276 Glenn Gudino M.D. [id number] Sodium [Moles/Vol] 134 mmol/L Low 135-145 [facility] Comment on above: Order Comment: [facility] has implemented the eGFR calculation approach that does not have a coefficient for race that conforms to the NKF-ASN Task Force Recommendations. Performed By: #### 4 6449 ####[facility] [address] [place] [address] 31236 Glenn Gudino M.D. [id number] Urea nitrogen [Mass/Vol] 28 mg/dL High 8-25 [facility] Comment on above: Order Comment: [facility] has implemented the eGFR calculation approach that does not have a coefficient for race that conforms to the NKF-ASN Task Force Recommendations. Performed By: #### 4 6449 ####[facility] [address] [place] [address] 24477 Glenn Gudino M.D. [id number] Urea nitrogen/Creatinine [Mass ratio] 13.9 mg/mg Normal 10.0-20.0 [facility] Comment on above: Order Comment: [facility] has implemented the eGFR calculation approach that does not have a coefficient for race that conforms to the NKF-ASN Task Force Recommendations. Performed By: #### 4 6449 ####[facility] [address] [place] [address] 07837 Glenn Gudino M.D. [id number] XR CHEST PA/APon 01-30-2024 XR CHEST PA/AP Normal [facility] Comment on above: Order Comment: Injur y/Trauma or Illness?:Illness/OtherHow long have you had these symptoms (acute/chronic)?:AcuteReason for exam?:chest tube palcement, pneumothoraxHistory of cancer?:uSurgeries, chemotherapy, or radiation?:uType of Exam?:Subsequent/Follow-upAdditional signs and symptoms?:chest tube palcement, pneumothorax APTT HEPARIN COVERAGEon aPTT Coag (Bld) [Time] 90 s High 23-34 [facility] Comment on above: Order Comment: Thera peutic range for APTT's is 68 - 104 seconds Performed By: #### 4 [id number] ####[facility] [address] [place] [address] 28955 Glenn Gudino M.D. [id number] aPTT Coag (Bld) [Time] 93 s High 23-34 [facility] Comment on above: Order Comment: Thera peutic range for APTT's is 68 - 104 seconds Result Comment: Resu lts checked. Performed By: #### 4 6848 ####[facility] [address] [place] [address] 56371 Glenn Gudino M.D. [id number] aPTT Coag (Bld) [Time] 66 s High 23-34 [facility] Comment on above: Order Comment: Thera peutic range for APTT's is 68 - 104 seconds Performed By: #### 4 6848 ####[facility] [address] [place] [address] Glenn Gudino M.D. [id number] aPTT Coag (Bld) [Time] 54 s High 23-34 [facility] Comment on above: Order Comment: Thera peutic range for APTT's is 68 - 104 secondsResults checked. Performed By: #### 4 6848 ####[facility] [address] [place], [place] [address] Glenn Gudino M.D. [id number] CALCIUM, IONIZEDon CALCIUM IONIZED 4.6 mg/dL Normal 4.5-5.3 [facility] Comment on above: Order Comment: Serum , non-CRRT source. Performed By: #### 4 5190 ####[facility] [address] [place], [place] [address] Glenn Gudino M.D. [id number] CBCon 01-29-2024 AUTO NRBC 0.0 % Normal [facility] Comment on above: Performed By: #### 4 [id number] ####[facility] [address] [place], [place] [address] Glenn Gudino M.D. [id number] AUTO NRBC ABS COUNT 0.00 K/mcL Normal 0.00-0.00 [facility] Comment on above: Performed By: #### 4 [id number] ####[facility] [address] [place], [place] [address] Glenn Gudino M.D. [id number] Erythrocyte distribution width (RBC) [Ratio] 17.1 % High 11.6-14.8 [facility] Comment on above: Performed By: #### 4 [id number] ####[facility] [address] [place], [place] [address] Glenn Gudino M.D. [id number] Hematocrit (Bld) [Volume fraction] 24.0 % Low 36.0-46.0 [facility] Comment on above: Performed By: #### 4 [id number] ####[facility] [address] [place] [address] Glenn Gudino M.D. [id number] Hemoglobin (Bld) [Mass/Vol] 7.7 g/dL Low 12.0-16.0 [facility] Comment on above: Performed By: #### 4 [id number] ####[facility] [address] [place] [address] Glenn Gudino M.D. [id number] MCH (RBC) [Entitic mass] 28.9 pg Normal 26.0-34.0 [facility] Comment on above: Performed By: #### 4 [id number] ####[facility] [address] [place], [place] [address] Glenn Gudino M.D. [id number] MCV (RBC) [Entitic vol] 90.2 fL Normal 80.0-100.0 [facility] Comment on above: Performed By: #### 4 [id number] ####[facility] [address] [place], [place] [address] Glenn Gudino M.D. [id number] MEAN CORPUSCULAR HEMOGLOBIN CONC 32.1 g/dL Normal 31.0-37.0 [facility] Comment on above: Performed By: #### 4 [id number] ####[facility] [address] [place], [place] [address] Glenn Gudino M.D. [id number] Platelet mean volume (Bld) [Entitic vol] 10.2 fL Normal 9.4-12.4 [facility] Comment on above: Performed By: #### 4 [id number] ####[facility] [address] [place] [address] 94101 Glenn Gudino M.D. [id number] Platelets (Bld) [#/Vol] 122 10*3/uL Low 150-400 [facility] Comment on above: Performed By: #### 4 [id number] ####[facility] [address] [place], [place] [address] Glenn Gudino M.D. [id number] RBC (Bld) [#/Vol] 2.66 10*6/uL Low 4.00-5.20 [facility] Comment on above: Performed By: #### 4 [id number] ####[facility] [address] [place], [place] [address] Glenn Gudino M.D. [id number] WBC (Bld) [#/Vol] 8.35 10*3/uL Normal 4.50-11.00 [facility] Comment on above: Performed By: #### 4 [id number] ####[facility] [address] [place] [address] 85293 Glenn Gudino M.D. [id number] HEPATITIS B SURFACE ANTIGENo n 01-29-2024 HEPATITIS B SURFACE ANTIGEN Negative Normal Negative [facility] Comment on above: Order Comment: Test performed using Adele ANNALISE immunoassay system Performed By: #### 4 4081 ####[facility] [address] [place] [address] 49435 Glenn Gudino M.D. [id number] MAGNESIUM LEVELon 01-29-2024 Magnesium [Mass/Vol] 2.2 mg/dL Normal 1.6-2.4 [facility] Comment on above: Performed By: #### 4 6109 ####[facility] [address] [place] [address] 40514 Glenn Gudino M.D. [id number] POC GLUCOSE - [facility] 024 Glucose [Mass/Vol] 167 mg/dL High 65-99 [facility] Comment on above: Performed By: #### 4 6987 ####[facility] [address] [place] [address] [id number] [facility] Glucose [Mass/Vol] 121 mg/dL High 65-99 [facility] Comment on above: Performed By: #### 4 6964 ####[facility] [address] [place] [address] [id number] [facility] Glucose [Mass/Vol] 54 mg/dL Low 65-99 [facility] Comment on above: Performed By: #### 4 6975 ####[facility] [address] [place] [address] [id number] [facility] Glucose [Mass/Vol] 103 mg/dL High 65-99 [facility] Comment on above: Performed By: #### 4 6981 ####[facility] [address] [place] [address] [id number] [facility] Glucose [Mass/Vol] 131 mg/dL High 65-[address] [place] [address] Comment on above: Performed By: #### 4 6997 ####[facility] [address] [place] [address] [id number] [facility] Glucose [Mass/Vol] 96 mg/dL Normal 65-99 [facility] Comment on above: Performed By: #### 4 5427 ####[facility] [address] [place] [address] [id number] [facility] Glucose [Mass/Vol] 114 mg/dL High 65-99 [facility] Comment on above: Performed By: #### 4 7586 ####[facility] [address] [place] [address] [id number] [facility] RENAL FUNCTION PANELon 01-28 Albumin [Mass/Vol] 2.3 g/dL Low 3.2-5.2 [facility] Comment on above: Order Comment: [facility] has implemented the eGFR calculation approach that does not have a coefficient for race that conforms to the NKF-ASN Task Force Recommendations. Performed By: #### 4 6449 ####[facility] [address] [place] [address] 22592 Glenn Gudino M.D. [id number] Anion gap [Moles/Vol] 11 mmol/L Normal 10-20 [facility] Comment on above: Order Comment: [facility] has implemented the eGFR calculation approach that does not have a coefficient for race that conforms to the NKF-ASN Task Force Recommendations. Performed By: #### 4 6449 ####[facility] [address] [place] [address] 05986 Glenn Gudino M.D. [id number] Calcium [Mass/Vol] 7.3 mg/dL Low 8.4-10.2 [facility] Comment on above: Order Comment: [facility] has implemented the eGFR calculation approach that does not have a coefficient for race that conforms to the NKF-ASN Task Force Recommendations. Performed By: #### 4 6449 ####[facility] [address] [place] [address] 35270 Glenn Gudino M.D. [id number] Chloride [Moles/Vol] 100 mmol/L Normal 98-108 [facility] Comment on above: Order Comment: [facility] has implemented the eGFR calculation approach that does not have a coefficient for race that conforms to the NKF-ASN Task Force Recommendations. Performed By: #### 4 6449 ####[facility] [address] [place] [address] 70680 Glenn Gudino M.D. [id number] Creatinine [Mass/Vol] 1.90 mg/dL High 0.60-1.10 [facility] Comment on above: Order Comment: [facility] has implemented the eGFR calculation approach that does not have a coefficient for race that conforms to the NKF-ASN Task Force Recommendations. Performed By: #### 4 6449 ####[facility] [address] [place] [address] 25778 Glenn Gudino M.D. [id number] EGFR 30 mL/min/1.73 m2 Low >=60 [facility] Comment on above: Order Comment: [facility] has implemented the eGFR calculation approach that does not have a coefficient for race that conforms to the NKF-ASN Task Force Recommendations. Result Comment: Joi mated GFR was calculated using the 2020 CKD-EPI creatinine equation. Performed By: #### 4 6449 ####[facility] [address] [place] [address] 84066 Glenn Gudino M.D. [id number] Glucose [Mass/Vol] 151 mg/dL High 65-99 [facility] Comment on above: Order Comment: [facility] has implemented the eGFR calculation approach that does not have a coefficient for race that conforms to the NKF-ASN Task Force Recommendations. Performed By: #### 4 6449 ####[facility] [address] [place] [address] 18159 Glenn Gudino M.D. [id number] HCO3 (Bld) [Moles/Vol] 28 mmol/L Normal 21-32 [facility] Comment on above: Order Comment: [facility] has implemented the eGFR calculation approach that does not have a coefficient for race that conforms to the NKF-ASN Task Force Recommendations. Performed By: #### 4 6449 ####[facility] [address] [place] [address] 32197 Glenn Gudino M.D. [id number] Phosphate [Mass/Vol] 2.2 mg/dL Low 2.8-4.1 [facility] Comment on above: Order Comment: [facility] has implemented the eGFR calculation approach that does not have a coefficient for race that conforms to the NKF-ASN Task Force Recommendations. Performed By: #### 4 6449 ####[facility] [address] [place] [address] 45376 Glenn Gudino M.D. [id number] Potassium [Moles/Vol] 4.3 mmol/L Normal 3.5-5.1 [facility] Comment on above: Order Comment: [facility] has implemented the eGFR calculation approach that does not have a coefficient for race that conforms to the NKF-ASN Task Force Recommendations. Performed By: #### 4 6449 ####[facility] [address] [place] [address] 88670 Glenn Gudino M.D. [id number] Sodium [Moles/Vol] 135 mmol/L Normal 135-145 [facility] Comment on above: Order Comment: [facility] has implemented the eGFR calculation approach that does not have a coefficient for race that conforms to the NKF-ASN Task Force Recommendations. Performed By: #### 4 6449 ####[facility] [address] [place], [place] [address] Glenn Gudino M.D. [id number] Urea nitrogen [Mass/Vol] 26 mg/dL High 8-25 [facility] Comment on above: Order Comment: [facility] has implemented the eGFR calculation approach that does not have a coefficient for race that conforms to the NKF-ASN Task Force Recommendations. Performed By: #### 4 6449 ####[facility] [address] [place] [address] 79151 Glenn Gudino M.D. [id number] Urea nitrogen/Creatinine [Mass ratio] 13.7 mg/mg Normal 10.0-20.0 [facility] Comment on above: Order Comment: [facility] has implemented the eGFR calculation approach that does not have a coefficient for race that conforms to the NKF-ASN Task Force Recommendations. Performed By: #### 4 6449 ####[facility] [address] [place] [address] 83320 Glenn Gudino M.D. [id number] Albumin [Mass/Vol] 1.5 g/dL Low 3.2-5.2 [facility] Comment on above: Order Comment: [facility] has implemented the eGFR calculation approach that does not have a coefficient for race that conforms to the NKF-ASN Task Force Recommendations. Performed By: #### 4 6449 ####[facility] [address] [place], [place] [address] Glenn Gudino M.D. [id number] Anion gap [Moles/Vol] 13 mmol/L Normal 10-20 [facility] Comment on above: Order Comment: [facility] has implemented the eGFR calculation approach that does not have a coefficient for race that conforms to the NKF-ASN Task Force Recommendations. Performed By: #### 4 6449 ####[facility] [address] [place], [place] [address] Glenn Gudino M.D. [id number] Calcium [Mass/Vol] 7.3 mg/dL Low 8.4-10.2 [facility] Comment on above: Order Comment: [facility] has implemented the eGFR calculation approach that does not have a coefficient for race that conforms to the NKF-ASN Task Force Recommendations. Performed By: #### 4 6449 ####[facility] [address] [place], [place] [address] Glenn Gudino M.D. [id number] Chloride [Moles/Vol] 104 mmol/L Normal 98-108 [facility] Comment on above: Order Comment: [facility] has implemented the eGFR calculation approach that does not have a coefficient for race that conforms to the NKF-ASN Task Force Recommendations. Performed By: #### 4 6449 ####[facility] [address] [place] [address] 77552 Glenn Gudino M.D. [id number] Creatinine [Mass/Vol] 2.66 mg/dL High 0.60-1.10 [facility] Comment on above: Order Comment: [facility] has implemented the eGFR calculation approach that does not have a coefficient for race that conforms to the NKF-ASN Task Force Recommendations. Performed By: #### 4 6449 ####[facility] [address] [place] [address] 87565 Glenn Gudino M.D. [id number] EGFR 20 mL/min/1.73 m2 Low >=60 [facility] Comment on above: Order Comment: [facility] has implemented the eGFR calculation approach that does not have a coefficient for race that conforms to the NKF-ASN Task Force Recommendations. Result Comment: Joi mated GFR was calculated using the 2020 CKD-EPI creatinine equation. Performed By: #### 4 6449 ####[facility] [address] [place] [address] 83676 Glenn Gudino M.D. [id number] Glucose [Mass/Vol] 104 mg/dL High 65-99 [facility] Comment on above: Order Comment: [facility] has implemented the eGFR calculation approach that does not have a coefficient for race that conforms to the NKF-ASN Task Force Recommendations. Performed By: #### 4 6449 ####[facility] [address] [place] [address] 17207 Glenn Guidno M.D. [id number] HCO3 (Bld) [Moles/Vol] 23 mmol/L Normal 21-32 [facility] Comment on above: Order Comment: [facility] has implemented the eGFR calculation approach that does not have a coefficient for race that conforms to the NKF-ASN Task Force Recommendations. Performed By: #### 4 6449 ####[facility] [address] [place] [address] 62285 Glenn Gudino M.D. [id number] Phosphate [Mass/Vol] 3.1 mg/dL Normal 2.8-4.1 [facility] Comment on above: Order Comment: [facility] has implemented the eGFR calculation approach that does not have a coefficient for race that conforms to the NKF-ASN Task Force Recommendations. Performed By: #### 4 6449 ####[facility] [address] [place] [address] 98295 Glenn Gudino M.D. [id number] Potassium [Moles/Vol] 5.0 mmol/L Normal 3.5-5.1 [facility] Comment on above: Order Comment: [facility] has implemented the eGFR calculation approach that does not have a coefficient for race that conforms to the NKF-ASN Task Force Recommendations. Performed By: #### 4 6449 ####[facility] [address] [place] [address] 16316 Glenn Gudino M.D. [id number] Sodium [Moles/Vol] 135 mmol/L Normal 135-145 [facility] Comment on above: Order Comment: [facility] has implemented the eGFR calculation approach that does not have a coefficient for race that conforms to the NKF-ASN Task Force Recommendations. Performed By: #### 4 6449 ####[facility] [address] [place] [address] 76887 Glenn Gudino M.D. [id number] Urea nitrogen [Mass/Vol] 42 mg/dL High 8-25 [facility] Comment on above: Order Comment: [facility] has implemented the eGFR calculation approach that does not have a coefficient for race that conforms to the NKF-ASN Task Force Recommendations. Performed By: #### 4 6449 ####[facility] [address] [place] [address] 46873 Glenn Gudino M.D. [id number] Urea nitrogen/Creatinine [Mass ratio] 15.8 mg/mg Normal 10.0-20.0 [facility] Comment on above: Order Comment: [facility] has implemented the eGFR calculation approach that does not have a coefficient for race that conforms to the NKF-ASN Task Force Recommendations. Performed By: #### 4 6449 ####[facility] [address] [place] [address] 77833 Glenn Gudino M.D. [id number] XR ABDOMEN /KUB/FLAT PLATE/1 VIEWon 01-29-2024 XR ABDOMEN /KUB/FLAT PLATE/1 VIEW Normal [facility] Comment on above: Order Comment: Injur y/Trauma or Illness?:Illness/OtherHow long have you had these symptoms (acute/chronic)?:AcuteReason for exam?:NGT placementHistory of cancer?:uSurgeries, chemotherapy, or radiation?:uType of Exam?:UnknownAdditional signs and symptoms?:no XR CHEST PA/APon 01-29-2024 XR CHEST PA/AP Normal [facility] Comment on above: Order Comment: Injur y/Trauma or Illness?:Illness/OtherHow long have you had these symptoms (acute/chronic)?:AcuteReason for exam?:chest tube palcement, pneumothoraxHistory of cancer?:uSurgeries, chemotherapy, or radiation?:uType of Exam?:Subsequent/Follow-upAdditional signs and symptoms?:chest tube palcement, pneumothorax ANTIBODY IDENTIFICATION-Con 01-28-2024 ANTIBODY IDENTIFICATION-C Normal [facility] Comment on above: Performed By: #### 4 6427_Anti-C ####[facility] [address] [place] [address] Nurys Oneill MD [id number] [facility] HEPARIN COVERAGEon aPTT Coag (Bld) [Time] 70 s High 23-34 Ri [facility] Comment on above: Order Comment: Thera peutic range for APTT's is 68 - 104 seconds Result Comment: Resu lts checked. Performed By: #### 4 6848 ####[facility] [address] [place] [address] Glenn Gudino M.D. [id number] B12/FOLATEon 01-28-2024 Cobalamin (Vitamin B12) [Mass/Vol] 879 pg/mL Normal 232-1245 [facility] Comment on above: Performed By: #### 4 6967 ####[facility] [address] [place] [address] Glenn Gudino M.D. [id number] FOLATE 10.0 ng/mL Normal 3.1-17.5 [facility] Comment on above: Result Comment: Defi cient <2.2Borderline 2.2 - 3.0Excessive >17.5 Performed By: #### 4 6967 ####[facility] [address] [place] [address] Glenn Gudino M.D. [id number] CALCIUM, IONIZEDon CALCIUM IONIZED 4.5 mg/dL Normal 4.5-5.3 [facility] Comment on above: Order Comment: Serum , non-CRRT source. Performed By: #### 4 5190 ####[facility] [address] [place], [place] [address] Glenn Gudino M.D. [id number] CBCon 01-28-2024 AUTO NRBC 0.0 % Normal [facility] Comment on above: Order Comment: One h our post RBC transfusion Performed By: #### 4 5218 ####[facility] [address] [place], [place] [address] Glenn Gudino M.D. [id number] AUTO NRBC ABS COUNT 0.00 K/mcL Normal 0.00-0.00 [facility] Comment on above: Order Comment: One h our post RBC transfusion Performed By: #### 4 5218 ####[facility] [address] [place], [place] [address] Glenn Gudino M.D. [id number] Erythrocyte distribution width (RBC) [Ratio] 16.3 % High 11.6-14.8 [facility] Comment on above: Order Comment: One h our post RBC transfusion Performed By: #### 4 5218 ####[facility] [address] [place], [place] [address] Glenn Gudino M.D. [id number] Hematocrit (Bld) [Volume fraction] 25.3 % Low 36.0-46.0 [facility] Comment on above: Order Comment: One h our post RBC transfusion Performed By: #### 4 5218 ####[facility] [address] [place] [address] Glenn Gudino M.D. [id number] Hemoglobin (Bld) [Mass/Vol] 8.2 g/dL Low 12.0-16.0 [facility] Comment on above: Order Comment: One h our post RBC transfusion Performed By: #### 4 5218 ####[facility] [address] [place] [address] Glenn Gudino M.D. [id number] MCH (RBC) [Entitic mass] 29.3 pg Normal 26.0-34.0 [facility] Comment on above: Order Comment: One h our post RBC transfusion Performed By: #### 4 5218 ####[facility] [address] [place] [address] Glenn Gudino M.D. [id number] MCV (RBC) [Entitic vol] 90.4 fL Normal 80.0-100.0 [facility] Comment on above: Order Comment: One h our post RBC transfusion Performed By: #### 4 5218 ####[facility] [address] [place] [address] Glenn Gudino M.D. [id number] MEAN CORPUSCULAR HEMOGLOBIN CONC 32.4 g/dL Normal 31.0-37.0 [facility] Comment on above: Order Comment: One h our post RBC transfusion Performed By: #### 4 5218 ####[facility] [address] [place], [place] [address] Glenn Gudino M.D. [id number] Platelet mean volume (Bld) [Entitic vol] 10.9 fL Normal 9.4-12.4 [facility] Comment on above: Order Comment: One h our post RBC transfusion Performed By: #### 4 5218 ####[facility] [address] [place], [place] [address] Glenn Gudino M.D. [id number] Platelets (Bld) [#/Vol] 118 10*3/uL Low 150-400 [facility] Comment on above: Order Comment: One h our post RBC transfusion Performed By: #### 4 5218 ####[facility] [address] [place] [address] Glenn Gudino M.D. [id number] RBC (Bld) [#/Vol] 2.80 10*6/uL Low 4.00-5.20 [facility] Comment on above: Order Comment: One h our post RBC transfusion Performed By: #### 4 5218 ####[facility] [address] [place] [address] Glenn Gudino M.D. [id number] WBC (Bld) [#/Vol] 7.55 10*3/uL Normal 4.50-11.00 [facility] Comment on above: Order Comment: One h our post RBC transfusion Performed By: #### 4 5218 ####[facility] [address] [place], [place] [address] Glenn Gudino M.D. [id number] AUTO NRBC 0.0 % Normal [facility] Comment on above: Performed By: #### 4 5218 ####[facility] [address] [place], [place] [address] Glenn Gudino M.D. [id number] AUTO NRBC ABS COUNT 0.00 K/mcL Normal 0.00-0.00 [facility] Comment on above: Performed By: #### 4 5218 ####[facility] [address] [place], [place] [address] Glenn Gudino M.D. [id number] Erythrocyte distribution width (RBC) [Ratio] 17.2 % High 11.6-14.8 [facility] Comment on above: Performed By: #### 4 5218 ####[facility] [address] [place], [place] [address] Glenn Gudino M.D. [id number] Hematocrit (Bld) [Volume fraction] 22.0 % Low 36.0-46.0 [facility] Comment on above: Performed By: #### 4 5218 ####[facility] [address] [place] [address] Glenn Gudino M.D. [id number] Hemoglobin (Bld) [Mass/Vol] 7.2 g/dL Low 12.0-16.0 [facility] Comment on above: Result Comment: Repe ated verified Performed By: #### 4 5218 ####[facility] [address] [place] [address] Glenn Gudino M.D. [id number] MCH (RBC) [Entitic mass] 29.8 pg Normal 26.0-34.0 [facility] Comment on above: Performed By: #### 4 5218 ####[facility] [address] [place] [address] Glenn Gudino M.D. [id number] MCV (RBC) [Entitic vol] 90.9 fL Normal 80.0-100.0 [facility] Comment on above: Performed By: #### 4 5218 ####[facility] [address] [place] [address] Glenn Gudino M.D. [id number] MEAN CORPUSCULAR HEMOGLOBIN CONC 32.7 g/dL Normal 31.0-37.0 [facility] Comment on above: Performed By: #### 4 5218 ####[facility] [address] [place], [place] [address] Glenn Gudino M.D. [id number] Platelet mean volume (Bld) [Entitic vol] 11.2 fL Normal 9.4-12.4 [facility] Comment on above: Performed By: #### 4 5218 ####[facility] [address] [place] [address] Glenn Gudino M.D. [id number] Platelets (Bld) [#/Vol] 130 10*3/uL Low 150-400 [facility] Comment on above: Performed By: #### 4 5218 ####[facility] [address] [place] [address] Glenn Gudino M.D. [id number] RBC (Bld) [#/Vol] 2.42 10*6/uL Low 4.00-5.20 [facility] Comment on above: Performed By: #### 4 5218 ####[facility] [address] [place] [address] Glenn Gudino M.D. [id number] WBC (Bld) [#/Vol] 8.26 10*3/uL Normal 4.50-11.00 [facility] Comment on above: Performed By: #### 4 5218 ####[facility] [address] [place], [place] [address] Glenn Gudino M.D. [id number] IRONon 01-28-2024 Iron [Mass/Vol] 49 ug/dL Normal 30-160 [facility] Comment on above: Performed By: #### 4 6039 ####[facility] [address] [place], [place] [address]Karma Gudino M.D. [id number] Performed By: #### 4 7645 ####[facility] [address] [place], [place] [address] Glenn Gudino M.D. [id number] IRON STUDY WITH FERRITINon 0 01-28-2024 Ferritin [Mass/Vol] 3753 ng/mL High 13-150 [facility] Comment on above: Performed By: #### 4 7611 ####[facility] [address] [place], [place] [address] Glenn Gudino M.D. [id number] IRON SATURATION 70 % High 20-50 [facility] Comment on above: Performed By: #### 4 7645 ####[facility] [address] [place] [address] Glenn Gudino M.D. [id number] TIBC (CALCULATED) 70 mcg/dL Low 225-430 [facility] Comment on above: Performed By: #### 4 7645 ####[facility] [address] [place], [place] [address] Glenn Gudino M.D. [id number] MAGNESIUM LEVELon 01-28-2024 Magnesium [Mass/Vol] 2.2 mg/dL Normal 1.6-2.4 [facility] Comment on above: Performed By: #### 4 6109 ####[facility] [address] [place] [address] Glenn Gudino M.D. [id number] POC GLUCOSE - [facility] 024 Glucose [Mass/Vol] 119 mg/dL High 65-99 [facility] Comment on above: Performed By: #### 4 6932 ####[facility] [address] [place] [address] [id number] RM[facility] Glucose [Mass/Vol] 128 mg/dL High 65-99 [facility] Comment on above: Performed By: #### 4 5956 ####[facility] LAB [address] [place] [address] [id number] RMHPOC Glucose [Mass/Vol] 123 mg/dL High 65-99 [facility] Comment on above: Performed By: #### 4 4417 ####[facility] [address] [place] [address] [id number] [facility] Glucose [Mass/Vol] 114 mg/dL High 65-99 [facility] Comment on above: Performed By: #### 4 1650 ####[facility] [address] [place] [address] [id number] [facility] Glucose [Mass/Vol] 65 mg/dL Normal 65-99 [facility] Comment on above: Performed By: #### 4 6932 ####[facility] [address] [place] [address] [id number] [facility] Glucose [Mass/Vol] 85 mg/dL Normal 65-99 [facility] Comment on above: Performed By: #### 4 6932 ####[facility] [address] [place] [address] [id number] [facility] Glucose [Mass/Vol] 126 mg/dL High 65-99 [facility] Comment on above: Performed By: #### 4 6932 ####[facility] [address] [place] [address] [id number] [facility] RENAL FUNCTION PANELon 01-27 Albumin [Mass/Vol] 1.6 g/dL Low 3.2-5.2 [facility] Comment on above: Order Comment: [facility] has implemented the eGFR calculation approach that does not have a coefficient for race that conforms to the NKF-ASN Task Force Recommendations. Performed By: #### 4 6449 ####[facility] [address] [place] [address] Glenn Gudino M.D. [id number] Anion gap [Moles/Vol] 12 mmol/L Normal 10-20 [facility] Comment on above: Order Comment: [facility] has implemented the eGFR calculation approach that does not have a coefficient for race that conforms to the NKF-ASN Task Force Recommendations. Performed By: #### 4 6449 ####[facility] [address] [place] [address] Glenn Gudino M.D. [id number] Calcium [Mass/Vol] 7.2 mg/dL Low 8.4-10.2 [facility] Comment on above: Order Comment: [facility] has implemented the eGFR calculation approach that does not have a coefficient for race that conforms to the NKF-ASN Task Force Recommendations. Performed By: #### 4 6449 ####[facility] [address] [place] [address] Glenn Gudino M.D. [id number] Chloride [Moles/Vol] 103 mmol/L Normal 98-108 [facility] Comment on above: Order Comment: [facility] has implemented the eGFR calculation approach that does not have a coefficient for race that conforms to the NKF-ASN Task Force Recommendations. Performed By: #### 4 6449 ####[facility] [address] [place] [address] Glenn Gudino M.D. [id number] Creatinine [Mass/Vol] 2.36 mg/dL High 0.60-1.10 [facility] Comment on above: Order Comment: [facility] has implemented the eGFR calculation approach that does not have a coefficient for race that conforms to the NKF-ASN Task Force Recommendations. Performed By: #### 4 6449 ####[facility] [address] [place] [address] Glenn Gudino M.D. [id number] EGFR 23 mL/min/1.73 m2 Low >=60 [facility] Comment on above: Order Comment: [facility] has implemented the eGFR calculation approach that does not have a coefficient for race that conforms to the NKF-ASN Task Force Recommendations. Result Comment: Joi mated GFR was calculated using the 2020 CKD-EPI creatinine equation. Performed By: #### 4 6449 ####[facility] [address] [place] [address] 6[address] Glenn Gudino M.D. [id number] Glucose [Mass/Vol] 120 mg/dL High 65-99 [facility] Comment on above: Order Comment: [facility] has implemented the eGFR calculation approach that does not have a coefficient for race that conforms to the NKF-ASN Task Force Recommendations. Performed By: #### 4 6449 ####[facility] [address] [place] [address]213 Glenn Gudino M.D. [id number] HCO3 (Bld) [Moles/Vol] 24 mmol/L Normal 21-32 [facility] Comment on above: Order Comment: [facility] has implemented the eGFR calculation approach that does not have a coefficient for race that conforms to the NKF-ASN Task Force Recommendations. Performed By: #### 4 6449 ####[facility] [address] [place] [address] Glenn Gudino M.D. [id number] Phosphate [Mass/Vol] 3.1 mg/dL Normal 2.8-4.1 [facility] Comment on above: Order Comment: [facility] has implemented the eGFR calculation approach that does not have a coefficient for race that conforms to the NKF-ASN Task Force Recommendations. Performed By: #### 4 6449 ####[facility] [address] [place] [address] Glenn Gudino M.D. [id number] Potassium [Moles/Vol] 4.8 mmol/L Normal 3.5-5.1 [facility] Comment on above: Order Comment: [facility] has implemented the eGFR calculation approach that does not have a coefficient for race that conforms to the NKF-ASN Task Force Recommendations. Performed By: #### 4 6449 ####[facility] [address] [place] [address] Glenn Gudino M.D. [id number] Sodium [Moles/Vol] 134 mmol/L Low 135-145 [facility] Comment on above: Order Comment: [facility] has implemented the eGFR calculation approach that does not have a coefficient for race that conforms to the NKF-ASN Task Force Recommendations. Performed By: #### 4 6449 ####[facility] [address] [place] [address] 08702 Glenn Gudino M.D. [id number] Urea nitrogen [Mass/Vol] 34 mg/dL High 8-25 [facility] Comment on above: Order Comment: [facility] has implemented the eGFR calculation approach that does not have a coefficient for race that conforms to the NKF-ASN Task Force Recommendations. Performed By: #### 4 6449 ####[facility] [address] [place], [place] [address] Glenn Gudino M.D. [id number] Urea nitrogen/Creatinine [Mass ratio] 14.4 mg/mg Normal 10.0-20.0 [facility] Comment on above: Order Comment: [facility] has implemented the eGFR calculation approach that does not have a coefficient for race that conforms to the NKF-ASN Task Force Recommendations. Performed By: #### 4 6449 ####[facility] [address] [place], [place] [address] Glenn Gudino M.D. [id number] Albumin [Mass/Vol] 1.6 g/dL Low 3.2-5.2 [facility] Comment on above: Order Comment: [facility] has implemented the eGFR calculation approach that does not have a coefficient for race that conforms to the NKF-ASN Task Force Recommendations. Performed By: #### 4 6449 ####[facility] [address] [place] [address] 135[address] Glenn Gudino M.D. [id number] Anion gap [Moles/Vol] 13 mmol/L Normal 10-20 [facility] Comment on above: Order Comment: [facility] has implemented the eGFR calculation approach that does not have a coefficient for race that conforms to the NKF-ASN Task Force Recommendations. Performed By: #### 4 6449 ####[facility] [address] [place] [address] 729[address] Glenn Gudino M.D. [id number] Calcium [Mass/Vol] 7.9 mg/dL Low 8.4-10.2 [facility] Comment on above: Order Comment: [facility] has implemented the eGFR calculation approach that does not have a coefficient for race that conforms to the NKF-ASN Task Force Recommendations. Performed By: #### 4 6449 ####[facility] [address] [place], [place] [address] Glenn Gudino M.D. [id number] Chloride [Moles/Vol] 104 mmol/L Normal 98-108 [facility] Comment on above: Order Comment: [facility] has implemented the eGFR calculation approach that does not have a coefficient for race that conforms to the NKF-ASN Task Force Recommendations. Performed By: #### 4 6449 ####[facility] [address] [place], [place] [address] Glenn Gudino M.D. [id number] Creatinine [Mass/Vol] 2.07 mg/dL High 0.60-1.10 [facility] Comment on above: Order Comment: [facility] has implemented the eGFR calculation approach that does not have a coefficient for race that conforms to the NKF-ASN Task Force Recommendations. Performed By: #### 4 6449 ####[facility] [address] [place] [address]3898 Glenn Gudino M.D. [id number] EGFR 27 mL/min/1.73 m2 Low >=60 [facility] Comment on above: Order Comment: [facility] has implemented the eGFR calculation approach that does not have a coefficient for race that conforms to the NKF-ASN Task Force Recommendations. Result Comment: Joi mated GFR was calculated using the 2020 CKD-EPI creatinine equation. Performed By: #### 4 6449 ####[facility] [address] [place] [address] 71271 Glenn Gudino M.D. [id number] Glucose [Mass/Vol] 120 mg/dL High 65-99 [facility] Comment on above: Order Comment: [facility] has implemented the eGFR calculation approach that does not have a coefficient for race that conforms to the NKF-ASN Task Force Recommendations. Performed By: #### 4 6449 ####[facility] [address] [place], [place] [address] Glenn Gudino M.D. [id number] HCO3 (Bld) [Moles/Vol] 24 mmol/L Normal 21-32 [facility] Comment on above: Order Comment: [facility] has implemented the eGFR calculation approach that does not have a coefficient for race that conforms to the NKF-ASN Task Force Recommendations. Performed By: #### 4 6449 ####[facility] [address] [place], [place] [address] Glenn Gudino M.D. [id number] Phosphate [Mass/Vol] 3.2 mg/dL Normal 2.8-4.1 [facility] Comment on above: Order Comment: [facility] has implemented the eGFR calculation approach that does not have a coefficient for race that conforms to the NKF-ASN Task Force Recommendations. Performed By: #### 4 6449 ####[facility] [address] [place], [place] [address] Glenn Gudino M.D. [id number] Potassium [Moles/Vol] 4.9 mmol/L Normal 3.5-5.1 [facility] Comment on above: Order Comment: [facility] has implemented the eGFR calculation approach that does not have a coefficient for race that conforms to the NKF-ASN Task Force Recommendations. Result Comment: Slig htly Hemolyzed Performed By: #### 4 6449 ####[facility] [address] [place], [place] [address] Glenn Gudino M.D. [id number] Sodium [Moles/Vol] 136 mmol/L Normal 135-145 [facility] Comment on above: Order Comment: [facility] has implemented the eGFR calculation approach that does not have a coefficient for race that conforms to the NKF-ASN Task Force Recommendations. Performed By: #### 4 6449 ####[facility] [address] [place] [address]508 Glenn Gudino M.D. [id number] Urea nitrogen [Mass/Vol] 29 mg/dL High 8-25 [facility] Comment on above: Order Comment: [facility] has implemented the eGFR calculation approach that does not have a coefficient for race that conforms to the NKF-ASN Task Force Recommendations. Performed By: #### 4 6449 ####[facility] [address] [place] [address]153 Glenn Gudino M.D. [id number] Urea nitrogen/Creatinine [Mass ratio] 14.0 mg/mg Normal 10.0-20.0 [facility] Comment on above: Order Comment: [facility] has implemented the eGFR calculation approach that does not have a coefficient for race that conforms to the NKF-ASN Task Force Recommendations. Performed By: #### 4 6449 ####[facility] [address] [place] [address] 80576 Glenn Gudino M.D. [id number] Albumin [Mass/Vol] 1.6 g/dL Low 3.2-5.2 [facility] Comment on above: Order Comment: [facility] has implemented the eGFR calculation approach that does not have a coefficient for race that conforms to the NKF-ASN Task Force Recommendations. Performed By: #### 4 6449 ####[facility] [address] [place] [address] 50369 Glenn Gudino M.D. [id number] Anion gap [Moles/Vol] 14 mmol/L Normal 10-20 [facility] Comment on above: Order Comment: [facility] has implemented the eGFR calculation approach that does not have a coefficient for race that conforms to the NKF-ASN Task Force Recommendations. Performed By: #### 4 6449 ####[facility] [address] [place] [address] 53262 Glenn Gudino M.D. [id number] Calcium [Mass/Vol] 7.4 mg/dL Low 8.4-10.2 [facility] Comment on above: Order Comment: [facility] has implemented the eGFR calculation approach that does not have a coefficient for race that conforms to the NKF-ASN Task Force Recommendations. Performed By: #### 4 6449 ####[facility] [address] [place] [address] 88215 Glenn Gudino M.D. [id number] Chloride [Moles/Vol] 105 mmol/L Normal 98-108 [facility] Comment on above: Order Comment: [facility] has implemented the eGFR calculation approach that does not have a coefficient for race that conforms to the NKF-ASN Task Force Recommendations. Performed By: #### 4 6449 ####[facility] [address] [place], [place] [address] Glenn Gudino M.D. [id number] Creatinine [Mass/Vol] 1.94 mg/dL High 0.60-1.10 [facility] Comment on above: Order Comment: [facility] has implemented the eGFR calculation approach that does not have a coefficient for race that conforms to the NKF-ASN Task Force Recommendations. Performed By: #### 4 6449 ####[facility] [address] [place], [place] [address] Glenn Gudino M.D. [id number] EGFR 29 mL/min/1.73 m2 Low >=60 [facility] Comment on above: Order Comment: [facility] has implemented the eGFR calculation approach that does not have a coefficient for race that conforms to the NKF-ASN Task Force Recommendations. Result Comment: Joi mated GFR was calculated using the 2020 CKD-EPI creatinine equation. Performed By: #### 4 6449 ####[facility] [address] [place] [address] 11101 Glenn Gudino M.D. [id number] Glucose [Mass/Vol] 125 mg/dL High 65-99 [facility] Comment on above: Order Comment: [facility] has implemented the eGFR calculation approach that does not have a coefficient for race that conforms to the NKF-ASN Task Force Recommendations. Performed By: #### 4 6449 ####[facility] [address] [place] [address] 40754 Glenn Gudino M.D. [id number] HCO3 (Bld) [Moles/Vol] 24 mmol/L Normal 21-32 [facility] Comment on above: Order Comment: [facility] has implemented the eGFR calculation approach that does not have a coefficient for race that conforms to the NKF-ASN Task Force Recommendations. Performed By: #### 4 6449 ####[facility] [address] [place], [place] [address] Glenn Gudino M.D. [id number] Phosphate [Mass/Vol] 3.5 mg/dL Normal 2.8-4.1 [facility] Comment on above: Order Comment: [facility] has implemented the eGFR calculation approach that does not have a coefficient for race that conforms to the NKF-ASN Task Force Recommendations. Performed By: #### 4 6449 ####[facility] [address] [place] [address] 22490 Glenn Gudino M.D. [id number] Potassium [Moles/Vol] 5.2 mmol/L High 3.5-5.1 [facility] Comment on above: Order Comment: [facility] has implemented the eGFR calculation approach that does not have a coefficient for race that conforms to the NKF-ASN Task Force Recommendations. Result Comment: Slig htly Hemolyzed Performed By: #### 4 6449 ####[facility] [address] [place], [place] [address] Glenn Gudino M.D. [id number] Sodium [Moles/Vol] 138 mmol/L Normal 135-145 [facility] Comment on above: Order Comment: [facility] has implemented the eGFR calculation approach that does not have a coefficient for race that conforms to the NKF-ASN Task Force Recommendations. Performed By: #### 4 6449 ####[facility] [address] [place], [place] [address] Glenn Gudino M.D. [id number] Urea nitrogen [Mass/Vol] 29 mg/dL High 8-25 [facility] Comment on above: Order Comment: [facility] has implemented the eGFR calculation approach that does not have a coefficient for race that conforms to the NKF-ASN Task Force Recommendations. Performed By: #### 4 6449 ####[facility] [address] [place], [place] [address] Glenn Gudino M.D. [id number] Urea nitrogen/Creatinine [Mass ratio] 14.9 mg/mg Normal 10.0-20.0 [facility] Comment on above: Order Comment: [facility] has implemented the eGFR calculation approach that does not have a coefficient for race that conforms to the NKF-ASN Task Force Recommendations. Performed By: #### 4 6449 ####[facility] [address] [place] [address] 96472 Glenn Gudino M.D. [id number] RETICULOCYTEon 01-28-2024 IMMATURE RETIC FRACT 21.2 % High 2.3-15.9 [facility] Comment on above: Performed By: #### 4 6452 ####[facility] [address] [place] [address] 25024 Glenn Gudino M.D. [id number] RETIC HGB EQUIVALENT 24.7 PG Low 27.7-38.2 [facility] Comment on above: Result Comment: The cut-off for RET-He established in our institution is 27.7-38.2 pg/RBC. A value below this range is highly suggestive of iron deficiency. At values above 38.2 pg/RBC, patients are unlikely to respond to additional iron therapy. Performed By: #### 4 6452 ####[facility] [address] [place], [place] [address] Glenn Gudino M.D. [id number] RETICULOCYTE ABSOLUTE COUNT 0.055 M/mcL Normal 0.025-0.07 0 [facility] Comment on above: Performed By: #### 4 6452 ####[facility] [address] [place] [address]1570 Glenn Gudino M.D. [id number] RETICULOCYTE COUNT PCT 2.3 % Normal [facility] Comment on above: Performed By: #### 4 6452 ####[facility] [address] [place] [address] Glenn Gudino M.D. [id number] TRIGLYCERIDESon 01-28-2024 Triglyceride [Mass/Vol] 95 mg/dL Normal 30-150 [facility] Comment on above: Result Comment: [facility] on[facility] Cholesterol Education Program Guidelines: TriglycerideNormal: <150 mg/dLBorderline High: 150-199 mg/dLHigh: 200-499 mg/dLVery High: greater than or equal to 500 mg/dL Performed By: #### 4 6606 ####[facility] [address] [place], [place] [address] Glenn Gudino M.D. [id number] TRIGLYCERIDES, BODY FLUIDSon 01-28-2024 TRIGLYCERIDES FLUID 333 mg/dL Normal [facility] Comment on above: Order Comment: No es tablished reference range. Performed By: #### 4 7057 ####[facility] [address] [place] [address]39 Glenn Gudino M.D. [id number] TYPE AND SCREENon 01-28-2024 TYPE AND SCREEN ABORH: O Positive AB SCREEN: Positive EXPIRATION DATE: 01/31/2024 23:59 EST Normal [facility] Comment on above: Performed By: #### 4 6619 ####[facility] [address] [address] Nurys Oneill MD [id number] [facility] XR ABDOMEN /KUB/FLAT PLATE/1 VIEWon 01-28-2024 XR ABDOMEN /KUB/FLAT PLATE/[address] [facility] Comment on above: Order Comment: Injur y/Trauma or Illness?:Illness/OtherHow long have you had these symptoms (acute/chronic)?:UnknownReason for exam?:small bore manipulatedHistory of cancer?:uSurgeries, chemotherapy, or radiation?:uType of Exam?:UnknownAdditional signs and symptoms?:small bore manipulated XR ABDOMEN /KUB/FLAT PLATE/[address] [facility] Comment on above: Order Comment: Injur y/Trauma or Illness?:Illness/OtherHow long have you had these symptoms (acute/chronic)?:UnknownReason for exam?:small bore NGHistory of cancer?:uSurgeries, chemotherapy, or radiation?:uType of Exam?:UnknownAdditional signs and symptoms?:small bore NG XR CHEST PA/APon 01-28-2024 XR CHEST PA/AP [facility] Comment on above: Order Comment: Injur y/Trauma or Illness?:Illness/OtherHow long have you had these symptoms (acute/chronic)?:AcuteReason for exam?:ct/ptxHistory of cancer?:uSurgeries, chemotherapy, or radiation?:uType of Exam?:OngoingAdditional signs and symptoms?:- APTTon 01-27-2024 aPTT Coag (Bld) [Time] 60 s High 23-34 [facility] Comment on above: Order Comment: Thera peutic range for APTT's is 68 - 104 seconds Result Comment: Resu lts checked. Performed By: #### 4 5113 ####[facility] [address] [place] [address] Glenn Gudino M.D. [id number] APTT HEPARIN COVERAGEon 12-29 aPTT Coag (Bld) [Time] 86 s High 23-34 [facility] Comment on above: Order Comment: Thera peutic range for APTT's is 68 - 104 seconds Result Comment: Resu lts checked. Performed By: #### 4 6848 ####[facility] [address] [place], [place] [address] Glenn Gudino M.D. [id number] aPTT Coag (Bld) [Time] 67 s High 23-34 [facility] Comment on above: Order Comment: Thera peutic range for APTT's is 68 - 104 seconds Performed By: #### 4 6848 ####[facility] [address] [place], [place] [address] Glenn Gudino M.D. [id number] aPTT Coag (Bld) [Time] 71 s High 23-34 [facility] Comment on above: Order Comment: Thera peutic range for APTT's is 68 - 104 seconds Performed By: #### 4 6848 ####[facility] [address] [place], [place] [address] Glenn Gudino M.D. [id number] BASIC METABOLIC PANELon 08-3 Anion gap [Moles/Vol] 14 mmol/L Normal 10-20 [facility] Comment on above: Order Comment: [facility] has implemented the eGFR calculation approach that does not have a coefficient for race that conforms to the NKF-ASN Task Force Recommendations. Performed By: #### 4 6124 ####[facility] [address] [place] [address] 17988 Glenn Gudino M.D. [id number] Calcium [Mass/Vol] 7.9 mg/dL Low 8.4-10.2 [facility] Comment on above: Order Comment: [facility] has implemented the eGFR calculation approach that does not have a coefficient for race that conforms to the NKF-ASN Task Force Recommendations. Performed By: #### 4 6124 ####[facility] [address] [place] [address] 84387 Glenn Gudino M.D. [id number] Chloride [Moles/Vol] 103 mmol/L Normal 98-108 [facility] Comment on above: Order Comment: [facility] has implemented the eGFR calculation approach that does not have a coefficient for race that conforms to the NKF-ASN Task Force Recommendations. Performed By: #### 4 6124 ####[facility] [address] [place] [address] 19753 Glenn Gudino M.D. [id number] Creatinine [Mass/Vol] 2.21 mg/dL High 0.60-1.10 [facility] Comment on above: Order Comment: [facility] has implemented the eGFR calculation approach that does not have a coefficient for race that conforms to the NKF-ASN Task Force Recommendations. Performed By: #### 4 6124 ####[facility] [address] [place], [place] [address] Glenn Gudino M.D. [id number] EGFR 25 mL/min/1.73 m2 Low >=60 [facility] Comment on above: Order Comment: [facility] has implemented the eGFR calculation approach that does not have a coefficient for race that conforms to the NKF-ASN Task Force Recommendations. Result Comment: Joi mated GFR was calculated using the 2020 CKD-EPI creatinine equation. Performed By: #### 4 6124 ####[facility] [address] [place] [address] 93666 Glenn Gudino M.D. [id number] Glucose [Mass/Vol] 145 mg/dL High 65-99 [facility] Comment on above: Order Comment: [facility] has implemented the eGFR calculation approach that does not have a coefficient for race that conforms to the NKF-ASN Task Force Recommendations. Performed By: #### 4 6124 ####[facility] [address] [place] [address] 74160 Glenn Gudino M.D. [id number] HCO3 (Bld) [Moles/Vol] 24 mmol/L Normal 21-32 [facility] Comment on above: Order Comment: [facility] has implemented the eGFR calculation approach that does not have a coefficient for race that conforms to the NKF-ASN Task Force Recommendations. Performed By: #### 4 6124 ####[facility] [address] [place] [address] 33483 Glenn Gudino M.D. [id number] Potassium [Moles/Vol] 4.7 mmol/L Normal 3.5-5.1 [facility] Comment on above: Order Comment: [facility] has implemented the eGFR calculation approach that does not have a coefficient for race that conforms to the NKF-ASN Task Force Recommendations. Performed By: #### 4 6124 ####[facility] [address] [place], [place] [address] Glenn Gudino M.D. [id number] Sodium [Moles/Vol] 136 mmol/L Normal 135-145 [facility] Comment on above: Order Comment: [facility] has implemented the eGFR calculation approach that does not have a coefficient for race that conforms to the NKF-ASN Task Force Recommendations. Performed By: #### 4 6120 ####[facility] [address] [place] [address] 24181 Glenn Gudino M.D. [id number] Urea nitrogen [Mass/Vol] 30 mg/dL High 8-25 [facility] Comment on above: Order Comment: [facility] has implemented the eGFR calculation approach that does not have a coefficient for race that conforms to the NKF-ASN Task Force Recommendations. Performed By: #### 4 6198 ####[facility] [address] [place] [address] 35597 Glenn Gudino M.D. [id number] Urea nitrogen/Creatinine [Mass ratio] 13.6 mg/mg Normal 10.0-20.0 [facility] Comment on above: Order Comment: [facility] has implemented the eGFR calculation approach that does not have a coefficient for race that conforms to the NKF-ASN Task Force Recommendations. Performed By: #### 4 6124 ####[facility] [address] [place] [address] 08731 Glenn Gudino M.D. [id number] Anion gap [Moles/Vol] 18 mmol/L Normal 10-20 [facility] Comment on above: Order Comment: [facility] has implemented the eGFR calculation approach that does not have a coefficient for race that conforms to the NKF-ASN Task Force Recommendations. Performed By: #### 4 6124 ####[facility] [address] [place] [address] 44376 Glenn Gudino M.D. [id number] Calcium [Mass/Vol] 7.4 mg/dL Low 8.4-10.2 [facility] Comment on above: Order Comment: [facility] has implemented the eGFR calculation approach that does not have a coefficient for race that conforms to the NKF-ASN Task Force Recommendations. Performed By: #### 4 6124 ####[facility] [address] [place] [address] 57048 Glenn Gudino M.D. [id number] Chloride [Moles/Vol] 104 mmol/L Normal 98-108 [facility] Comment on above: Order Comment: [facility] has implemented the eGFR calculation approach that does not have a coefficient for race that conforms to the NKF-ASN Task Force Recommendations. Performed By: #### 4 6124 ####[facility] [address] [place] [address] 78160 Glenn Gudino M.D. [id number] Creatinine [Mass/Vol] 2.71 mg/dL High 0.60-1.10 [facility] Comment on above: Order Comment: [facility] has implemented the eGFR calculation approach that does not have a coefficient for race that conforms to the NKF-ASN Task Force Recommendations. Performed By: #### 4 6124 ####[facility] [address] [place] [address] 45617 Glenn Gudino M.D. [id number] EGFR 19 mL/min/1.73 m2 Low >=60 [facility] Comment on above: Order Comment: [facility] has implemented the eGFR calculation approach that does not have a coefficient for race that conforms to the NKF-ASN Task Force Recommendations. Result Comment: Joi mated GFR was calculated using the 2020 CKD-EPI creatinine equation. Performed By: #### 4 6124 ####[facility] [address] [place] [address] 92466 Glenn Gudino M.D. [id number] Glucose [Mass/Vol] 89 mg/dL Normal 65-99 [facility] Comment on above: Order Comment: [facility] has implemented the eGFR calculation approach that does not have a coefficient for race that conforms to the NKF-ASN Task Force Recommendations. Performed By: #### 4 6124 ####[facility] [address] [place] [address] 66905 Glenn Gudino M.D. [id number] HCO3 (Bld) [Moles/Vol] 22 mmol/L Normal 21-32 [facility] Comment on above: Order Comment: [facility] has implemented the eGFR calculation approach that does not have a coefficient for race that conforms to the NKF-ASN Task Force Recommendations. Performed By: #### 4 6124 ####[facility] [address] [place] [address] 41793 Glenn Gudino M.D. [id number] Potassium [Moles/Vol] 5.0 mmol/L Normal 3.5-5.1 [facility] Comment on above: Order Comment: [facility] has implemented the eGFR calculation approach that does not have a coefficient for race that conforms to the NKF-ASN Task Force Recommendations. Performed By: #### 4 6124 ####[facility] [address] [place] [address] 70795 Glenn Gudino M.D. [id number] Sodium [Moles/Vol] 139 mmol/L Normal 135-145 [facility] Comment on above: Order Comment: [facility] has implemented the eGFR calculation approach that does not have a coefficient for race that conforms to the NKF-ASN Task Force Recommendations. Performed By: #### 4 6124 ####[facility] [address] [place], [place] [address] Glenn Gudino M.D. [id number] Urea nitrogen [Mass/Vol] 37 mg/dL High 8-25 [facility] Comment on above: Order Comment: [facility] has implemented the eGFR calculation approach that does not have a coefficient for race that conforms to the NKF-ASN Task Force Recommendations. Performed By: #### 4 6124 ####[facility] [address] [place] [address] 37296 Glenn Gudino M.D. [id number] Urea nitrogen/Creatinine [Mass ratio] 13.7 mg/mg Normal 10.0-20.0 [facility] Comment on above: Order Comment: [facility] has implemented the eGFR calculation approach that does not have a coefficient for race that conforms to the NKF-ASN Task Force Recommendations. Performed By: #### 4 6124 ####[facility] [address] [place] [address] 24647 Glenn Gudino M.D. [id number] CALCIUM, IONIZEDon 4 CALCIUM IONIZED 4.6 mg/dL Normal 4.5-5.3 [facility] Comment on above: Order Comment: Serum , non-CRRT source. Performed By: #### 4 5190 ####[facility] [address] [place] [address] 45175 Glenn Gudino M.D. [id number] CALCIUM IONIZED 4.4 mg/dL Low 4.5-5.3 [facility] Comment on above: Order Comment: Serum , non-CRRT source. Performed By: #### 4 5190 ####[facility] [address] [place], [place] [address] Glenn Gudino M.D. [id number] CALCIUM IONIZED 4.4 mg/dL Low 4.5-5.3 [facility] Comment on above: Order Comment: Serum , non-CRRT source. Performed By: #### 4 5190 ####[facility] [address] [place] [address] Glenn Gudino M.D. [id number] CALCIUM IONIZED 4.4 mg/dL Low 4.5-5.3 [facility] Comment on above: Order Comment: Serum , non-CRRT source. Performed By: #### 4 5190 ####[facility] [address] [place] [address] Glenn Gudino M.D. [id number] CBCon 01-27-2024 AUTO NRBC 0.0 % Normal [facility] Comment on above: Performed By: #### 4 5218 ####[facility] [address] [place], [place] [address] Glenn Gudino M.D. [id number] AUTO NRBC ABS COUNT 0.00 K/mcL Normal 0.00-0.00 [facility] Comment on above: Performed By: #### 4 5218 ####[facility] [address] [place], [place] [address] Glenn Gudino M.D. [id number] Erythrocyte distribution width (RBC) [Ratio] 16.9 % High 11.6-14.8 [facility] Comment on above: Performed By: #### 4 5218 ####[facility] [address] [place], [place] [address] Glenn Gudino M.D. [id number] Hematocrit (Bld) [Volume fraction] 29.2 % Low 36.0-46.0 [facility] Comment on above: Performed By: #### 4 5218 ####[facility] [address] [place], [place] [address] Glenn Gudino M.D. [id number] Hemoglobin (Bld) [Mass/Vol] 9.7 g/dL Low 12.0-16.0 [facility] Comment on above: Performed By: #### 4 5218 ####[facility] [address] [place] [address] Glenn Gudino M.D. [id number] MCH (RBC) [Entitic mass] 29.5 pg Normal 26.0-34.0 [facility] Comment on above: Performed By: #### 4 [id number] ####[facility] [address] [place] [address] Glenn Gudino M.D. [id number] MCV (RBC) [Entitic vol] 88.8 fL Normal 80.0-100.0 [facility] Comment on above: Performed By: #### 4 [id number] ####[facility] [address] [place], [place] [address] Glenn Gudino M.D. [id number] MEAN CORPUSCULAR HEMOGLOBIN CONC 33.2 g/dL Normal 31.0-37.0 [facility] Comment on above: Performed By: #### 4 5218 ####[facility] [address] [place], [place] [address] Glenn Gudino M.D. [id number] Platelet mean volume (Bld) [Entitic vol] 11.3 fL Normal 9.4-12.4 [facility] Comment on above: Performed By: #### 4 [id number] ####[facility] [address] [place], [place] [address] Glenn Gudino M.D. [id number] Platelets (Bld) [#/Vol] 106 10*3/uL Low 150-400 [facility] Comment on above: Result Comment: Repe ated verified Performed By: #### 4 5218 ####[facility] [address] [place], [place] [address] Glenn Gudino M.D. [id number] RBC (Bld) [#/Vol] 3.29 10*6/uL Low 4.00-5.20 [facility] Comment on above: Performed By: #### 4 [id number] ####[facility] [address] [place], [place] [address] Glenn Gudino M.D. [id number] WBC (Bld) [#/Vol] 17.82 10*3/uL High 4.50-11.00 [facility] Comment on above: Performed By: #### 4 [id number] ####[facility] [address] [place], [place] [address] Glenn Gudino M.D. [id number] MAGNESIUM LEVELon 01-27-2024 Magnesium [Mass/Vol] 2.2 mg/dL Normal 1.6-2.4 [facility] Comment on above: Performed By: #### 4 6109 ####[facility] [address] [place], [place] [address] Glenn Gudino M.D. [id number] Magnesium [Mass/Vol] 2.2 mg/dL Normal 1.6-2.4 [facility] Comment on above: Performed By: #### 4 6109 ####[facility] [address] [place], [place] [address] Glenn Gudino M.D. [id number] Magnesium [Mass/Vol] 2.1 mg/dL Normal 1.6-2.4 [facility] Comment on above: Performed By: #### 4 6109 ####[facility] [address] [place], [place] [address] Glenn Gudino M.D. [id number] Magnesium [Mass/Vol] 2.2 mg/dL Normal 1.6-2.4 [facility] Comment on above: Performed By: #### 4 6109 ####[facility] [address] [place] [address] Glenn Gudino M.D. [id number] POC ARTERIAL BLOOD GAS PANEL -[facility] Yoanna 01-27-2024 BASE EXCESS, ARTERIAL -0.1 Normal -2.0-2.0 [facility] Comment on above: Performed By: #### 4 8716 ####[facility] [address] [place] [address] [id number] [facility] CALCIUM IONIZED 4.4 mg/dL Low 4.5-5.3 [facility] Comment on above: Performed By: #### 4 8716 ####[facility] [address] [place] [address] [id number] [facility] CARBOXYHEMOGLOBIN 2.0 % of total Hb High <=1.5 [facility] Comment on above: Result Comment: Refe rence Ranges:Suburban Non-smokers: <1.5%Smokers: 1.5-5.0%Heavy Smokers: 5.0-9.0% Performed By: #### 4 8716 ####[facility] [address] [place] [address] [id number] [facility] Chloride [Moles/Vol] 103 mmol/L Normal 98-108 [facility] Comment on above: Performed By: #### 4 8716 ####[facility] [address] [place] [address] [id number] [facility] Glucose [Mass/Vol] 88 mg/dL Normal 65-99 [facility] Comment on above: Performed By: #### 4 8716 ####[facility] [address] [place] [address] [id number] [facility] HCO3 (Bld) [Moles/Vol] 24.5 mmol/L Normal 22.0-26.0 [facility] Comment on above: Performed By: #### 4 8716 ####[facility] [address] [place] [address] [id number] [facility] Hematocrit (Bld) [Volume fraction] 29.9 % Low 36.0-46.0 [facility] Comment on above: Performed By: #### 4 8716 ####[facility] [address] [place] [address] [id number] [facility] Hemoglobin (Bld) [Mass/Vol] 9.8 g/dL Low 12.0-16.0 [facility] Comment on above: Performed By: #### 4 8716 ####[facility] [address] [place] [address] [id number] [facility] LACTIC ACID, WHOLE BLOOD 1.1 mmol/L Normal 0.6-2.0 [facility] Comment on above: Performed By: #### 4 3816 ####[facility] [address] [place] [address] [id number] [facility] LITER FLOW 3 Normal [facility] Comment on above: Performed By: #### 4 4316 ####[facility] [address] [place] [address] [id number] [facility] METHEMOGLOBIN < Normal 0.0-2.0 [facility] Comment on above: Performed By: #### 4 3516 ####[facility] [address] [place] [address] [id number] [facility] O2HB 92.7 % Low 94.0-98.0 [facility] Comment on above: Performed By: #### 4 4826 ####[facility] [address] [place] [address] [id number] [facility] Oxygen saturation in Blood 94.8 % Normal 92.0-99.0 [facility] Comment on above: Performed By: #### 4 4452 ####[facility] [address] [place] [address] [id number] [facility] PCO2 ARTERIAL 39.0 mm Hg Normal 35.0-45.0 [facility] Comment on above: Performed By: #### 4 8716 ####[facility] [address] [place] [address] [id number] [facility] PH ARTERIAL 7.41 Normal 7.35-7.45 [facility] Comment on above: Performed By: #### 4 8716 ####[facility] [address] [place] [address] [id number] [facility] PO2 ARTERIAL 72 mm Hg Low 80-100 [facility] Comment on above: Performed By: #### 4 8716 ####[facility] [address] [place] [address] [id number] [facility] Potassium [Moles/Vol] 4.6 mmol/L Normal 3.5-5.1 [facility] Comment on above: Performed By: #### 4 8716 ####[facility] [address] [place] [address] [id number] [facility] Sodium [Moles/Vol] 134 mmol/L Low 135-145 [facility] Comment on above: Performed By: #### 4 8716 ####[facility] [address] [place] [address] [id number] [facility] POC GLUCOSE [facility] 024 Glucose [Mass/Vol] 111 mg/dL High 65-99 [facility] Comment on above: Performed By: #### 4 6560 ####[facility] [address] [place] [address] [id number] [facility] Glucose [Mass/Vol] 155 mg/dL High 65-99 [facility] Comment on above: Performed By: #### 0 1341 ####[facility] [address] [place] [address] [id number] [facility] Glucose [Mass/Vol] 132 mg/dL High 65-99 [facility] Comment on above: Performed By: #### 4 8515 ####[facility] [address] [place] [address] [id number] [facility] Glucose [Mass/Vol] 114 mg/dL High 65-99 [facility] Comment on above: Performed By: #### 4 6932 ####[facility] [address] [place] [address] [id number] [facility] Glucose [Mass/Vol] 109 mg/dL High 65-99 [facility] Comment on above: Performed By: #### 4 6932 ####[facility] [address] [place] [address] [id number] [facility] Glucose [Mass/Vol] 96 mg/dL Normal 65-99 [facility] Comment on above: Performed By: #### 4 6932 ####[facility] [address] [place] [address] [id number] [facility] Glucose [Mass/Vol] 71 mg/dL Normal 65-99 [facility] Comment on above: Performed By: #### 4 6932 ####[facility] [address] [place] [address] [id number] [facility] RENAL FUNCTION PANELon 01-26 Albumin [Mass/Vol] 1.6 g/dL Low 3.2-5.2 [facility] Comment on above: Order Comment: [facility] has implemented the eGFR calculation approach that does not have a coefficient for race that conforms to the NKF-ASN Task Force Recommendations. Performed By: #### 4 6449 ####[facility] [address] [place] [address] Glenn Gudino M.D. [id number] Anion gap [Moles/Vol] 13 mmol/L Normal 10-20 [facility] Comment on above: Order Comment: [facility] has implemented the eGFR calculation approach that does not have a coefficient for race that conforms to the NKF-ASN Task Force Recommendations. Performed By: #### 4 6449 ####[facility] [address] [place] [address] Glenn Gudino M.D. [id number] Calcium [Mass/Vol] 7.7 mg/dL Low 8.4-10.2 [facility] Comment on above: Order Comment: [facility] has implemented the eGFR calculation approach that does not have a coefficient for race that conforms to the NKF-ASN Task Force Recommendations. Performed By: #### 4 6449 ####[facility] [address] [place] [address] 69110 Glenn Gudino M.D. [id number] Chloride [Moles/Vol] 103 mmol/L Normal 98-108 [facility] Comment on above: Order Comment: [facility] has implemented the eGFR calculation approach that does not have a coefficient for race that conforms to the NKF-ASN Task Force Recommendations. Performed By: #### 4 6449 ####[facility] [address] [place], [place] [address] Glenn Gudino M.D. [id number] Creatinine [Mass/Vol] 2.09 mg/dL High 0.60-1.10 [facility] Comment on above: Order Comment: [facility] has implemented the eGFR calculation approach that does not have a coefficient for race that conforms to the NKF-ASN Task Force Recommendations. Performed By: #### 4 6449 ####[facility] [address] [place] [address] 71220 Glenn Gudino M.D. [id number] EGFR 27 mL/min/1.73 m2 Low >=60 [facility] Comment on above: Order Comment: [facility] has implemented the eGFR calculation approach that does not have a coefficient for race that conforms to the NKF-ASN Task Force Recommendations. Result Comment: Joi mated GFR was calculated using the 2020 CKD-EPI creatinine equation. Performed By: #### 4 6449 ####[facility] [address] [place] [address] 07166 Glenn Gudino M.D. [id number] Glucose [Mass/Vol] 121 mg/dL High 65-99 [facility] Comment on above: Order Comment: [facility] has implemented the eGFR calculation approach that does not have a coefficient for race that conforms to the NKF-ASN Task Force Recommendations. Performed By: #### 4 6449 ####[facility] [address] [place] [address] Glenn Gudino M.D. [id number] HCO3 (Bld) [Moles/Vol] 24 mmol/L Normal 21-32 [facility] Comment on above: Order Comment: [facility] has implemented the eGFR calculation approach that does not have a coefficient for race that conforms to the NKF-ASN Task Force Recommendations. Performed By: #### 4 6449 ####[facility] [address] [place], [place] [address] Glenn Gudino M.D. [id number] Phosphate [Mass/Vol] 4.0 mg/dL Normal 2.8-4.1 [facility] Comment on above: Order Comment: [facility] has implemented the eGFR calculation approach that does not have a coefficient for race that conforms to the NKF-ASN Task Force Recommendations. Performed By: #### 4 6449 ####[facility] [address] [place] [address] 72790 Glenn Gudino M.D. [id number] Potassium [Moles/Vol] 4.7 mmol/L Normal 3.5-5.1 [facility] Comment on above: Order Comment: [facility] has implemented the eGFR calculation approach that does not have a coefficient for race that conforms to the NKF-ASN Task Force Recommendations. Performed By: #### 4 6449 ####[facility] [address] [place] [address] 39602 Glenn Gudino M.D. [id number] Sodium [Moles/Vol] 135 mmol/L Normal 135-145 [facility] Comment on above: Order Comment: [facility] has implemented the eGFR calculation approach that does not have a coefficient for race that conforms to the NKF-ASN Task Force Recommendations. Performed By: #### 4 6449 ####[facility] [address] [place] [address] 22614 Glenn Gudino M.D. [id number] Urea nitrogen [Mass/Vol] 29 mg/dL High 8-25 [facility] Comment on above: Order Comment: [facility] has implemented the eGFR calculation approach that does not have a coefficient for race that conforms to the NKF-ASN Task Force Recommendations. Performed By: #### 4 6449 ####[facility] [address] [place] [address] 92441 Glenn Gudino M.D. [id number] Urea nitrogen/Creatinine [Mass ratio] 13.9 mg/mg Normal 10.0-20.0 [facility] Comment on above: Order Comment: [facility] has implemented the eGFR calculation approach that does not have a coefficient for race that conforms to the NKF-ASN Task Force Recommendations. Performed By: #### 4 [id number] ####[facility] [address] [place] [address] 27892 Glenn Gudino M.D. [id number] Albumin [Mass/Vol] 1.7 g/dL Low 3.2-5.2 [facility] Comment on above: Order Comment: [facility] has implemented the eGFR calculation approach that does not have a coefficient for race that conforms to the NKF-ASN Task Force Recommendations. Performed By: #### 4 [id number] ####[facility] [address] [place] [address] 16205 Glenn Gudino M.D. [id number] Anion gap [Moles/Vol] 15 mmol/L Normal 10-20 [facility] Comment on above: Order Comment: [facility] has implemented the eGFR calculation approach that does not have a coefficient for race that conforms to the NKF-ASN Task Force Recommendations. Performed By: #### 4 [id number] ####[facility] [address] [place] [address] 12330 Glenn Gudino M.D. [id number] Calcium [Mass/Vol] 7.7 mg/dL Low 8.4-10.2 [facility] Comment on above: Order Comment: [facility] has implemented the eGFR calculation approach that does not have a coefficient for race that conforms to the NKF-ASN Task Force Recommendations. Performed By: #### 4 [id number] ####[facility] [address] [place] [address] 35359 Glenn Gudino M.D. [id number] Chloride [Moles/Vol] 103 mmol/L Normal 98-108 [facility] Comment on above: Order Comment: [facility] has implemented the eGFR calculation approach that does not have a coefficient for race that conforms to the NKF-ASN Task Force Recommendations. Performed By: #### 4 [id number] ####[facility] [address] [place], [place] [address] Glenn Gudino M.D. [id number] Creatinine [Mass/Vol] 2.25 mg/dL High 0.60-1.10 [facility] Comment on above: Order Comment: [facility] has implemented the eGFR calculation approach that does not have a coefficient for race that conforms to the NKF-ASN Task Force Recommendations. Performed By: #### 4 [id number] ####[facility] [address] [place], [place] [address] Glenn Gudino M.D. [id number] EGFR 24 mL/min/1.73 m2 Low >=60 [facility] Comment on above: Order Comment: [facility] has implemented the eGFR calculation approach that does not have a coefficient for race that conforms to the NKF-ASN Task Force Recommendations. Result Comment: Joi mated GFR was calculated using the 2020 CKD-EPI creatinine equation. Performed By: #### 4 [id number] ####[facility] [address] [place] [address] 59097 Glenn Gudino M.D. [id number] Glucose [Mass/Vol] 122 mg/dL High 65-99 [facility] Comment on above: Order Comment: [facility] has implemented the eGFR calculation approach that does not have a coefficient for race that conforms to the NKF-ASN Task Force Recommendations. Performed By: #### 4 [id number] ####[facility] [address] [place], [place] [address] Glenn Gudino M.D. [id number] HCO3 (Bld) [Moles/Vol] 24 mmol/L Normal 21-32 [facility] Comment on above: Order Comment: [facility] has implemented the eGFR calculation approach that does not have a coefficient for race that conforms to the NKF-ASN Task Force Recommendations. Performed By: #### 4 6449 ####[facility] [address] [place], [place] [address] Glenn Gudino M.D. [id number] Phosphate [Mass/Vol] 4.7 mg/dL High 2.8-4.1 [facility] Comment on above: Order Comment: [facility] has implemented the eGFR calculation approach that does not have a coefficient for race that conforms to the NKF-ASN Task Force Recommendations. Performed By: #### 4 6449 ####[facility] [address] [place] [address] 65443 Glenn Gudino M.D. [id number] Potassium [Moles/Vol] 5.0 mmol/L Normal 3.5-5.1 [facility] Comment on above: Order Comment: [facility] has implemented the eGFR calculation approach that does not have a coefficient for race that conforms to the NKF-ASN Task Force Recommendations. Performed By: #### 4 6449 ####[facility] [address] [place] [address] 73578 Glenn Gudino M.D. [id number] Sodium [Moles/Vol] 137 mmol/L Normal 135-145 [facility] Comment on above: Order Comment: [facility] has implemented the eGFR calculation approach that does not have a coefficient for race that conforms to the NKF-ASN Task Force Recommendations. Performed By: #### 4 6449 ####[facility] [address] [place] [address] 13950 Glenn Gudino M.D. [id number] Urea nitrogen [Mass/Vol] 30 mg/dL High 8-25 [facility] Comment on above: Order Comment: [facility] has implemented the eGFR calculation approach that does not have a coefficient for race that conforms to the NKF-ASN Task Force Recommendations. Performed By: #### 4 6449 ####[facility] [address] [place] [address] 30120 Glenn Gudino M.D. [id number] Urea nitrogen/Creatinine [Mass ratio] 13.3 mg/mg Normal 10.0-20.0 [facility] Comment on above: Order Comment: [facility] has implemented the eGFR calculation approach that does not have a coefficient for race that conforms to the NKF-ASN Task Force Recommendations. Performed By: #### 4 6449 ####[facility] [address] [place] [address] 11089 Glenn Gudino M.D. [id number] Albumin [Mass/Vol] 1.8 g/dL Low 3.2-5.2 [facility] Comment on above: Order Comment: [facility] has implemented the eGFR calculation approach that does not have a coefficient for race that conforms to the NKF-ASN Task Force Recommendations. Performed By: #### 4 6449 ####[facility] [address] [place] [address] 27443 Glenn Gudino M.D. [id number] Anion gap [Moles/Vol] 15 mmol/L Normal 10-20 [facility] Comment on above: Order Comment: [facility] has implemented the eGFR calculation approach that does not have a coefficient for race that conforms to the NKF-ASN Task Force Recommendations. Performed By: #### 4 6449 ####[facility] [address] [place] [address] 79456 Glenn Gudino M.D. [id number] Calcium [Mass/Vol] 7.7 mg/dL Low 8.4-10.2 [facility] Comment on above: Order Comment: [facility] has implemented the eGFR calculation approach that does not have a coefficient for race that conforms to the NKF-ASN Task Force Recommendations. Performed By: #### 4 6449 ####[facility] [address] [place] [address] 54885 Glenn Gudino M.D. [id number] Chloride [Moles/Vol] 102 mmol/L Normal 98-108 [facility] Comment on above: Order Comment: [facility] has implemented the eGFR calculation approach that does not have a coefficient for race that conforms to the NKF-ASN Task Force Recommendations. Performed By: #### 4 6449 ####[facility] [address] [place] [address] 40857 Glenn Gudino M.D. [id number] Creatinine [Mass/Vol] 2.42 mg/dL High 0.60-1.10 [facility] Comment on above: Order Comment: [facility] has implemented the eGFR calculation approach that does not have a coefficient for race that conforms to the NKF-ASN Task Force Recommendations. Performed By: #### 4 6449 ####[facility] [address] [place] [address] 54781 Glenn Gudino M.D. [id number] EGFR 22 mL/min/1.73 m2 Low >=60 [facility] Comment on above: Order Comment: [facility] has implemented the eGFR calculation approach that does not have a coefficient for race that conforms to the NKF-ASN Task Force Recommendations. Result Comment: Joi mated GFR was calculated using the 2020 CKD-EPI creatinine equation. Performed By: #### 4 6449 ####[facility] [address] [place] [address] 64694 Glenn Gudino M.D. [id number] Glucose [Mass/Vol] 103 mg/dL High 65-99 [facility] Comment on above: Order Comment: [facility] has implemented the eGFR calculation approach that does not have a coefficient for race that conforms to the NKF-ASN Task Force Recommendations. Performed By: #### 4 6449 ####[facility] [address] [place] [address] 26865 Glenn Gudino M.D. [id number] HCO3 (Bld) [Moles/Vol] 24 mmol/L Normal 21-32 [facility] Comment on above: Order Comment: [facility] has implemented the eGFR calculation approach that does not have a coefficient for race that conforms to the NKF-ASN Task Force Recommendations. Performed By: #### 4 6449 ####[facility] [address] [place] [address] 54992 Glenn Gudino M.D. [id number] Phosphate [Mass/Vol] 5.4 mg/dL High 2.8-4.1 [facility] Comment on above: Order Comment: [facility] has implemented the eGFR calculation approach that does not have a coefficient for race that conforms to the NKF-ASN Task Force Recommendations. Performed By: #### 4 6449 ####[facility] [address] [place] [address] 86650 Glenn Gudino M.D. [id number] Potassium [Moles/Vol] 4.7 mmol/L Normal 3.5-5.1 [facility] Comment on above: Order Comment: [facility] has implemented the eGFR calculation approach that does not have a coefficient for race that conforms to the NKF-ASN Task Force Recommendations. Performed By: #### 4 6449 ####[facility] [address] [place] [address] 64814 Glenn Gudino M.D. [id number] Sodium [Moles/Vol] 136 mmol/L Normal 135-145 [facility] Comment on above: Order Comment: [facility] has implemented the eGFR calculation approach that does not have a coefficient for race that conforms to the NKF-ASN Task Force Recommendations. Performed By: #### 4 6449 ####[facility] [address] [place] [address] 01564 Glenn Gudino M.D. [id number] Urea nitrogen [Mass/Vol] 33 mg/dL High 8-25 [facility] Comment on above: Order Comment: [facility] has implemented the eGFR calculation approach that does not have a coefficient for race that conforms to the NKF-ASN Task Force Recommendations. Performed By: #### 4 6449 ####[facility] [address] [place] [address] 94120 Glenn Gudino M.D. [id number] Urea nitrogen/Creatinine [Mass ratio] 13.6 mg/mg Normal 10.0-20.0 [facility] Comment on above: Order Comment: [facility] has implemented the eGFR calculation approach that does not have a coefficient for race that conforms to the NKF-ASN Task Force Recommendations. Performed By: #### 4 6449 ####[facility] [address] [place] [address] 37244 Glenn Gudino M.D. [id number] Albumin [Mass/Vol] 1.6 g/dL Low 3.2-5.2 [facility] Comment on above: Order Comment: [facility] has implemented the eGFR calculation approach that does not have a coefficient for race that conforms to the NKF-ASN Task Force Recommendations. Performed By: #### 4 6449 ####[facility] [address] [place] [address] 07513 Glenn Gudino M.D. [id number] Anion gap [Moles/Vol] 19 mmol/L Normal 10-20 [facility] Comment on above: Order Comment: [facility] has implemented the eGFR calculation approach that does not have a coefficient for race that conforms to the NKF-ASN Task Force Recommendations. Performed By: #### 4 6449 ####[facility] [address] [place], [place] [address] Glenn Gudino M.D. [id number] Calcium [Mass/Vol] 7.5 mg/dL Low 8.4-10.2 [facility] Comment on above: Order Comment: [facility] has implemented the eGFR calculation approach that does not have a coefficient for race that conforms to the NKF-ASN Task Force Recommendations. Performed By: #### 4 6449 ####[facility] [address] [place], [place] [address] Glenn Gudino M.D. [id number] Chloride [Moles/Vol] 103 mmol/L Normal 98-108 [facility] Comment on above: Order Comment: [facility] has implemented the eGFR calculation approach that does not have a coefficient for race that conforms to the NKF-ASN Task Force Recommendations. Performed By: #### 4 6449 ####[facility] [address] [place], [place] [address] Glenn Gudino M.D. [id number] Creatinine [Mass/Vol] 2.60 mg/dL High 0.60-1.10 [facility] Comment on above: Order Comment: [facility] has implemented the eGFR calculation approach that does not have a coefficient for race that conforms to the NKF-ASN Task Force Recommendations. Performed By: #### 4 6449 ####[facility] [address] [place], [place] [address] Glenn Gudino M.D. [id number] EGFR 20 mL/min/1.73 m2 Low >=60 [facility] Comment on above: Order Comment: [facility] has implemented the eGFR calculation approach that does not have a coefficient for race that conforms to the NKF-ASN Task Force Recommendations. Result Comment: Joi mated GFR was calculated using the 2020 CKD-EPI creatinine equation. Performed By: #### 4 6449 ####[facility] [address] [place], [place] [address] Glenn Gudino M.D. [id number] Glucose [Mass/Vol] 89 mg/dL Normal 65-99 [facility] Comment on above: Order Comment: [facility] has implemented the eGFR calculation approach that does not have a coefficient for race that conforms to the NKF-ASN Task Force Recommendations. Performed By: #### 4 6449 ####[facility] [address] [place], [place] [address] Glenn Gudino M.D. [id number] HCO3 (Bld) [Moles/Vol] 20 mmol/L Low 21-32 [facility] Comment on above: Order Comment: [facility] has implemented the eGFR calculation approach that does not have a coefficient for race that conforms to the NKF-ASN Task Force Recommendations. Performed By: #### 4 6449 ####[facility] [address] [place] [address] 94838 Glenn Gudino M.D. [id number] Phosphate [Mass/Vol] 6.0 mg/dL High 2.8-4.1 [facility] Comment on above: Order Comment: [facility] has implemented the eGFR calculation approach that does not have a coefficient for race that conforms to the NKF-ASN Task Force Recommendations. Performed By: #### 4 6449 ####[facility] [address] [place] [address] 43087 Glenn Gudino M.D. [id number] Potassium [Moles/Vol] 5.0 mmol/L Normal 3.5-5.1 [facility] Comment on above: Order Comment: [facility] has implemented the eGFR calculation approach that does not have a coefficient for race that conforms to the NKF-ASN Task Force Recommendations. Result Comment: Slig htly Hemolyzed Performed By: #### 4 6449 ####[facility] [address] [place] [address] 61247 Glenn Gudino M.D. [id number] Sodium [Moles/Vol] 137 mmol/L Normal 135-145 [facility] Comment on above: Order Comment: [facility] has implemented the eGFR calculation approach that does not have a coefficient for race that conforms to the NKF-ASN Task Force Recommendations. Performed By: #### 4 6449 ####[facility] [address] [place] [address] 28240 Glenn Gudino M.D. [id number] Urea nitrogen [Mass/Vol] 34 mg/dL High 8-25 [facility] Comment on above: Order Comment: [facility] has implemented the eGFR calculation approach that does not have a coefficient for race that conforms to the NKF-ASN Task Force Recommendations. Performed By: #### 4 6449 ####[facility] [address] [place] [address] 20868 Glenn Gudino M.D. [id number] Urea nitrogen/Creatinine [Mass ratio] 13.1 mg/mg Normal 10.0-20.0 [facility] Comment on above: Order Comment: [facility] has implemented the eGFR calculation approach that does not have a coefficient for race that conforms to the NKF-ASN Task Force Recommendations. Performed By: #### 4 6449 ####[facility] [address] [place] [address] 69789 Glenn Gudino M.D. [id number] XR CHEST PA/APon 01-27-2024 XR CHEST PA/AP Normal [facility] Comment on above: Order Comment: Injur y/Trauma or Illness?:Illness/OtherHow long have you had these symptoms (acute/chronic)?:UnknownReason for exam?:Chest tube placement, pneumothoraxHistory of cancer?:uSurgeries, chemotherapy, or radiation?:uType of Exam?:UnknownAdditional signs and symptoms?:Chest tube placement, pneumothorax XR CHEST PA/AP Normal [facility] Comment on above: Order Comment: Injur y/Trauma or Illness?:Illness/OtherHow long have you had these symptoms (acute/chronic)?:UnknownReason for exam?:hypoxia, L pneumothorax, effusionHistory of cancer?:uSurgeries, chemotherapy, or radiation?:uType of Exam?:OngoingAdditional signs and symptoms?:- APTT HEPARIN COVERAGEon 12-29 aPTT Coag (Bld) [Time] 134 s Off scale high 23-34 [facility] Comment on above: Order Comment: Thera peutic range for APTT's is 68 - 104 seconds Result Comment: Resu lts checked. Performed By: #### 4 [id number] ####[facility] [address] [place] [address] Glenn Gudino M.D. [id number] aPTT Coag (Bld) [Time] 105 s High 23-34 [facility] Comment on above: Order Comment: Thera peutic range for APTT's is 68 - 104 seconds Result Comment: Resu lts checked. Performed By: #### 4 6848 ####[facility] [address] [place], [place] [address] Glenn Gudino M.D. [id number] BASIC METABOLIC PANELon 12-29 Anion gap [Moles/Vol] 18 mmol/L Normal 10-20 [facility] Comment on above: Order Comment: [facility] has implemented the eGFR calculation approach that does not have a coefficient for race that conforms to the NKF-ASN Task Force Recommendations. Performed By: #### 4 6124 ####[facility] [address] [place] [address] Glenn Gudino M.D. [id number] Calcium [Mass/Vol] 7.5 mg/dL Low 8.4-10.2 [facility] Comment on above: Order Comment: [facility] has implemented the eGFR calculation approach that does not have a coefficient for race that conforms to the NKF-ASN Task Force Recommendations. Performed By: #### 4 6124 ####[facility] [address] [place] [address] 37530 Glenn Gudino M.D. [id number] Chloride [Moles/Vol] 105 mmol/L Normal 98-108 [facility] Comment on above: Order Comment: [facility] has implemented the eGFR calculation approach that does not have a coefficient for race that conforms to the NKF-ASN Task Force Recommendations. Performed By: #### 4 6124 ####[facility] [address] [place] [address] 47934 Glenn Gudino M.D. [id number] Creatinine [Mass/Vol] 3.06 mg/dL High 0.60-1.10 [facility] Comment on above: Order Comment: [facility] has implemented the eGFR calculation approach that does not have a coefficient for race that conforms to the NKF-ASN Task Force Recommendations. Performed By: #### 4 6124 ####[facility] [address] [place] [address] 57806 Glenn Gudino M.D. [id number] EGFR 17 mL/min/1.73 m2 Low >=60 [facility] Comment on above: Order Comment: [facility] has implemented the eGFR calculation approach that does not have a coefficient for race that conforms to the NKF-ASN Task Force Recommendations. Result Comment: Joi mated GFR was calculated using the 2020 CKD-EPI creatinine equation. Performed By: #### 4 6124 ####[facility] [address] [place] [address] 39803 Glenn Gudino M.D. [id number] Glucose [Mass/Vol] 69 mg/dL Normal 65-99 [facility] Comment on above: Order Comment: [facility] has implemented the eGFR calculation approach that does not have a coefficient for race that conforms to the NKF-ASN Task Force Recommendations. Performed By: #### 4 6124 ####[facility] [address] [place] [address] 04988 Glenn Gudino M.D. [id number] HCO3 (Bld) [Moles/Vol] 19 mmol/L Low 21-32 [facility] Comment on above: Order Comment: [facility] has implemented the eGFR calculation approach that does not have a coefficient for race that conforms to the NKF-ASN Task Force Recommendations. Performed By: #### 4 6124 ####[facility] [address] [place] [address] 10504 Glenn Gudino M.D. [id number] Potassium [Moles/Vol] 4.9 mmol/L Normal 3.5-5.1 [facility] Comment on above: Order Comment: [facility] has implemented the eGFR calculation approach that does not have a coefficient for race that conforms to the NKF-ASN Task Force Recommendations. Result Comment: Slig htly Hemolyzed Performed By: #### 4 6124 ####[facility] [address] [place] [address] 36208 Glenn Gudino M.D. [id number] Sodium [Moles/Vol] 137 mmol/L Normal 135-145 [facility] Comment on above: Order Comment: [facility] has implemented the eGFR calculation approach that does not have a coefficient for race that conforms to the NKF-ASN Task Force Recommendations. Performed By: #### 4 6124 ####[facility] [address] [place] [address] 67583 Glenn Gudino M.D. [id number] Urea nitrogen [Mass/Vol] 39 mg/dL High 8-25 [facility] Comment on above: Order Comment: [facility] has implemented the eGFR calculation approach that does not have a coefficient for race that conforms to the NKF-ASN Task Force Recommendations. Performed By: #### 4 6171 ####[facility] [address] [place] [address] 09915 Glenn Gudino M.D. [id number] Urea nitrogen/Creatinine [Mass ratio] 12.7 mg/mg Normal 10.0-20.0 [facility] Comment on above: Order Comment: [facility] has implemented the eGFR calculation approach that does not have a coefficient for race that conforms to the NKF-ASN Task Force Recommendations. Performed By: #### 4 6124 ####[facility] [address] [place] [address] 09297 Glenn Gudino M.D. [id number] Anion gap [Moles/Vol] 17 mmol/L Normal 10-20 [facility] Comment on above: Order Comment: [facility] has implemented the eGFR calculation approach that does not have a coefficient for race that conforms to the NKF-ASN Task Force Recommendations. Performed By: #### 4 6124 ####[facility] [address] [place], [place] [address] Glenn Gudino M.D. [id number] Calcium [Mass/Vol] 7.6 mg/dL Low 8.4-10.2 [facility] Comment on above: Order Comment: [facility] has implemented the eGFR calculation approach that does not have a coefficient for race that conforms to the NKF-ASN Task Force Recommendations. Performed By: #### 4 6124 ####[facility] [address] [place] [address] 76746 Glenn Gudino M.D. [id number] Chloride [Moles/Vol] 106 mmol/L Normal 98-108 [facility] Comment on above: Order Comment: [facility] has implemented the eGFR calculation approach that does not have a coefficient for race that conforms to the NKF-ASN Task Force Recommendations. Performed By: #### 4 6124 ####[facility] [address] [place] [address] 43650 Glenn Gudino M.D. [id number] Creatinine [Mass/Vol] 2.86 mg/dL High 0.60-1.10 [facility] Comment on above: Order Comment: [facility] has implemented the eGFR calculation approach that does not have a coefficient for race that conforms to the NKF-ASN Task Force Recommendations. Performed By: #### 4 6124 ####[facility] [address] [place] [address] 52332 Glenn Gudino M.D. [id number] EGFR 18 mL/min/1.73 m2 Low >=60 [facility] Comment on above: Order Comment: [facility] has implemented the eGFR calculation approach that does not have a coefficient for race that conforms to the NKF-ASN Task Force Recommendations. Result Comment: Joi mated GFR was calculated using the 2020 CKD-EPI creatinine equation. Performed By: #### 4 6124 ####[facility] [address] [place], [place] [address] Glenn Gudino M.D. [id number] Glucose [Mass/Vol] 81 mg/dL Normal 65-99 [facility] Comment on above: Order Comment: [facility] has implemented the eGFR calculation approach that does not have a coefficient for race that conforms to the NKF-ASN Task Force Recommendations. Performed By: #### 4 6124 ####[facility] [address] [place] [address] 61883 Glenn Gudino M.D. [id number] HCO3 (Bld) [Moles/Vol] 19 mmol/L Low 21-32 [facility] Comment on above: Order Comment: [facility] has implemented the eGFR calculation approach that does not have a coefficient for race that conforms to the NKF-ASN Task Force Recommendations. Performed By: #### 4 6124 ####[facility] [address] [place] [address] 27364 Glenn Gudino M.D. [id number] Potassium [Moles/Vol] 5.3 mmol/L High 3.5-5.1 [facility] Comment on above: Order Comment: [facility] has implemented the eGFR calculation approach that does not have a coefficient for race that conforms to the NKF-ASN Task Force Recommendations. Result Comment: Marisol leblanc Hemolyzed Performed By: #### 4 6124 ####[facility] [address] [place] [address] 33203 Glenn Gudino M.D. [id number] Sodium [Moles/Vol] 137 mmol/L Normal 135-145 [facility] Comment on above: Order Comment: [facility] has implemented the eGFR calculation approach that does not have a coefficient for race that conforms to the NKF-ASN Task Force Recommendations. Performed By: #### 4 6124 ####[facility] [address] [place] [address] 43816 Glenn Gudino M.D. [id number] Urea nitrogen [Mass/Vol] 38 mg/dL High 8-25 [facility] Comment on above: Order Comment: [facility] has implemented the eGFR calculation approach that does not have a coefficient for race that conforms to the NKF-ASN Task Force Recommendations. Performed By: #### 4 6124 ####[facility] [address] [place] [address] 44941 Glenn Gudino M.D. [id number] Urea nitrogen/Creatinine [Mass ratio] 13.3 mg/mg Normal 10.0-20.0 [facility] Comment on above: Order Comment: [facility] has implemented the eGFR calculation approach that does not have a coefficient for race that conforms to the NKF-ASN Task Force Recommendations. Performed By: #### 4 6193 ####[facility] [address] [place] [address] 61146 Glenn Gudino M.D. [id number] Anion gap [Moles/Vol] 18 mmol/L Normal 10-20 [facility] Comment on above: Order Comment: [facility] has implemented the eGFR calculation approach that does not have a coefficient for race that conforms to the NKF-ASN Task Force Recommendations. Performed By: #### 4 6124 ####[facility] [address] [place] [address] 05650 Glenn Gudino M.D. [id number] Calcium [Mass/Vol] 7.4 mg/dL Low 8.4-10.2 [facility] Comment on above: Order Comment: [facility] has implemented the eGFR calculation approach that does not have a coefficient for race that conforms to the NKF-ASN Task Force Recommendations. Performed By: #### 4 6124 ####[facility] [address] [place] [address] 01683 Glenn Gudino M.D. [id number] Chloride [Moles/Vol] 107 mmol/L Normal 98-108 [facility] Comment on above: Order Comment: [facility] has implemented the eGFR calculation approach that does not have a coefficient for race that conforms to the NKF-ASN Task Force Recommendations. Performed By: #### 4 6124 ####[facility] [address] [place] [address] 11391 Glenn Gudino M.D. [id number] Creatinine [Mass/Vol] 2.54 mg/dL High 0.60-1.10 [facility] Comment on above: Order Comment: [facility] has implemented the eGFR calculation approach that does not have a coefficient for race that conforms to the NKF-ASN Task Force Recommendations. Performed By: #### 4 6124 ####[facility] [address] [place] [address] 99211 Glenn Gudino M.D. [id number] EGFR 21 mL/min/1.73 m2 Low >=60 [facility] Comment on above: Order Comment: [facility] has implemented the eGFR calculation approach that does not have a coefficient for race that conforms to the NKF-ASN Task Force Recommendations. Result Comment: Joi mated GFR was calculated using the 2020 CKD-EPI creatinine equation. Performed By: #### 4 6124 ####[facility] [address] [place] [address] 17621 Glenn Gudino M.D. [id number] Glucose [Mass/Vol] 72 mg/dL Normal 65-99 [facility] Comment on above: Order Comment: [facility] has implemented the eGFR calculation approach that does not have a coefficient for race that conforms to the NKF-ASN Task Force Recommendations. Performed By: #### 4 6124 ####[facility] [address] [place] [address] 55759 Glenn Gudino M.D. [id number] HCO3 (Bld) [Moles/Vol] 17 mmol/L Low 21-32 [facility] Comment on above: Order Comment: [facility] has implemented the eGFR calculation approach that does not have a coefficient for race that conforms to the NKF-ASN Task Force Recommendations. Performed By: #### 4 6124 ####[facility] [address] [place] [address] 46490 Glenn Gudino M.D. [id number] Potassium [Moles/Vol] 5.1 mmol/L Normal 3.5-5.1 [facility] Comment on above: Order Comment: [facility] has implemented the eGFR calculation approach that does not have a coefficient for race that conforms to the NKF-ASN Task Force Recommendations. Result Comment: Slig htly Hemolyzed Performed By: #### 4 6124 ####[facility] [address] [place] [address] 15090 Glenn Gudino M.D. [id number] Sodium [Moles/Vol] 137 mmol/L Normal 135-145 [facility] Comment on above: Order Comment: [facility] has implemented the eGFR calculation approach that does not have a coefficient for race that conforms to the NKF-ASN Task Force Recommendations. Performed By: #### 4 6137 ####[facility] [address] [place] [address] 49510 Glenn Gudino M.D. [id number] Urea nitrogen [Mass/Vol] 36 mg/dL High 8-25 [facility] Comment on above: Order Comment: [facility] has implemented the eGFR calculation approach that does not have a coefficient for race that conforms to the NKF-ASN Task Force Recommendations. Performed By: #### 4 6124 ####[facility] [address] [place] [address] Glenn Gudino M.D. [id number] Urea nitrogen/Creatinine [Mass ratio] 14.2 mg/mg Normal 10.0-20.0 [facility] Comment on above: Order Comment: [facility] has implemented the eGFR calculation approach that does not have a coefficient for race that conforms to the NKF-ASN Task Force Recommendations. Performed By: #### 4 6124 ####[facility] [address] [place], [place] [address] Glenn Gudino M.D. [id number] CALCIUM, IONIZEDon CALCIUM IONIZED 4.3 mg/dL Low 4.5-5.3 [facility] Comment on above: Order Comment: Serum , non-CRRT source. Performed By: #### 4 5190 ####[facility] [address] [place] [address] 51825 Glenn Gudino M.D. [id number] CALCIUM IONIZED 4.5 mg/dL Normal 4.5-5.3 [facility] Comment on above: Performed By: #### 4 5190 ####[facility] [address] [place] [address] 94514 Glenn Gudino M.D. [id number] CBCon 01-26-2024 AUTO NRBC 0.0 % Normal [facility] Comment on above: Performed By: #### 4 [id number] ####[facility] [address] [place] [address] 33888 Glenn Gudino M.D. [id number] AUTO NRBC ABS COUNT 0.00 K/mcL Normal 0.00-0.00 [facility] Comment on above: Performed By: #### 4 [id number] ####[facility] [address] [place], [place] [address] Glenn Gudino M.D. [id number] Erythrocyte distribution width (RBC) [Ratio] 17.2 % High 11.6-14.8 [facility] Comment on above: Performed By: #### 4 [id number] ####[facility] [address] [place] [address] Glenn Gudino M.D. [id number] Hematocrit (Bld) [Volume fraction] 31.5 % Low 36.0-46.0 [facility] Comment on above: Performed By: #### 4 [id number] ####[facility] [address] [place] [address] Glenn Gudino M.D. [id number] Hemoglobin (Bld) [Mass/Vol] 10.5 g/dL Low 12.0-16.0 [facility] Comment on above: Performed By: #### 4 [id number] ####[facility] [address] [place], [place] [address]Karma Gudino M.D. [id number] MCH (RBC) [Entitic mass] 29.2 pg Normal 26.0-34.0 [facility] Comment on above: Performed By: #### 4 [id number] ####[facility] [address] [place], [place] [address] Glenn Gudino M.D. [id number] MCV (RBC) [Entitic vol] 87.5 fL Normal 80.0-100.0 [facility] Comment on above: Performed By: #### 4 [id number] ####[facility] [address] [place] [address] Glenn Gudino M.D. [id number] MEAN CORPUSCULAR HEMOGLOBIN CONC 33.3 g/dL Normal 31.0-37.0 [facility] Comment on above: Performed By: #### 4 [id number] ####[facility] [address] [place], [place] [address] Glenn Gudino M.D. [id number] Platelet mean volume (Bld) [Entitic vol] 11.7 fL Normal 9.4-12.4 [facility] Comment on above: Performed By: #### 4 [id number] ####[facility] [address] [place], [place] [address] Glenn Gudino M.D. [id number] Platelets (Bld) [#/Vol] 80 10*3/uL Low 150-400 [facility] Comment on above: Result Comment: Resu lts checked Performed By: #### 4 [id number] ####[facility] [address] [place], [place] [address] Glenn Gudino M.D. [id number] RBC (Bld) [#/Vol] 3.60 10*6/uL Low 4.00-5.20 [facility] Comment on above: Performed By: #### 4 [id number] ####[facility] [address] [place], [place] [address] Glenn Gudino M.D. [id number] WBC (Bld) [#/Vol] 13.45 10*3/uL High 4.50-11.00 [facility] Comment on above: Performed By: #### 4 [id number] ####[facility] [address] [place] [address] 09521 Glenn Gudino M.D. [id number] MAGNESIUM LEVELon 01-26-2024 Magnesium [Mass/Vol] 2.2 mg/dL Normal 1.6-2.4 [facility] Comment on above: Performed By: #### 4 6109 ####[facility] [address] [place] [address] 33008 Glenn Gudino M.D. [id number] Magnesium [Mass/Vol] 2.2 mg/dL Normal 1.6-2.4 [facility] Comment on above: Performed By: #### 4 6109 ####[facility] [address] [place] [address] Glenn Gudino M.D. [id number] MYOGLOBIN, URINEon MYOGLOBIN, URINE Positive Abnormal Negative [facility] Comment on above: Performed By: #### 4 6189 ####[facility] [address] [place] [address] Glenn Gudino M.D. [id number] PHOSPHORUSon 01-26-2024 Phosphate [Mass/Vol] 6.5 mg/dL High 2.8-4.1 [facility] Comment on above: Performed By: #### 4 6299 ####[facility] [address] [place] [address] Glenn Gudino M.D. [id number] POC GLUCOSE - [facility] 024 Glucose [Mass/Vol] 96 mg/dL Normal 65-99 [facility] Comment on above: Performed By: #### 4 5263 ####[facility] [address] [place] [address] [id number] [facility] Glucose [Mass/Vol] 14 mg/dL Off scale low 65-99 [facility] Comment on above: Order Comment: Criti cherrie result acted upon time of test. Test performed at bedside. Performed By: #### 4 9005 ####[facility] [address] [place] [address] [id number] [facility] Glucose [Mass/Vol] 72 mg/dL Normal 65-99 [facility] Comment on above: Performed By: #### 4 7470 ####[facility] [address] [place] [address] [id number] [facility] Glucose [Mass/Vol] 82 mg/dL Normal 65-99 [facility] Comment on above: Performed By: #### 4 6932 ####[facility] [address] [place] [address] [id number] [facility] Glucose [Mass/Vol] 84 mg/dL Normal 65-99 [facility] Comment on above: Performed By: #### 4 6932 ####[facility] [address] [place] [address] [id number] [facility] Glucose [Mass/Vol] 76 mg/dL Normal 65-99 [facility] Comment on above: Performed By: #### 4 6932 ####[facility] [address] [place] [address] [id number] [facility] Glucose [Mass/Vol] 78 mg/dL Normal 65-99 [facility] Comment on above: Performed By: #### 4 6932 ####[facility] [address] [place] [address] [id number] [facility] RENAL FUNCTION PANELon 01-25 Albumin [Mass/Vol] 1.6 g/dL Low 3.2-5.2 [facility] Comment on above: Order Comment: [facility] has implemented the eGFR calculation approach that does not have a coefficient for race that conforms to the NKF-ASN Task Force Recommendations. Performed By: #### 4 6449 ####[facility] [address] [place] [address] Glenn Gudnio M.D. [id number] Anion gap [Moles/Vol] 17 mmol/L Normal 10-20 [facility] Comment on above: Order Comment: [facility] has implemented the eGFR calculation approach that does not have a coefficient for race that conforms to the NKF-ASN Task Force Recommendations. Performed By: #### 4 6449 ####[facility] [address] [place] [address] Glenn Gudino M.D. [id number] Calcium [Mass/Vol] 6.9 mg/dL Low 8.4-10.2 [facility] Comment on above: Order Comment: [facility] has implemented the eGFR calculation approach that does not have a coefficient for race that conforms to the NKF-ASN Task Force Recommendations. Performed By: #### 4 6449 ####[facility] [address] [place], [place] [address] Glenn Gudino M.D. [id number] Chloride [Moles/Vol] 103 mmol/L Normal 98-108 [facility] Comment on above: Order Comment: [facility] has implemented the eGFR calculation approach that does not have a coefficient for race that conforms to the NKF-ASN Task Force Recommendations. Performed By: #### 4 6449 ####[facility] [address] [place], [place] [address] Glenn Gudino M.D. [id number] Creatinine [Mass/Vol] 2.90 mg/dL High 0.60-1.10 [facility] Comment on above: Order Comment: [facility] has implemented the eGFR calculation approach that does not have a coefficient for race that conforms to the NKF-ASN Task Force Recommendations. Performed By: #### 4 6449 ####[facility] [address] [place] [address] 77917 Glenn Gudino M.D. [id number] EGFR 18 mL/min/1.73 m2 Low >=60 [facility] Comment on above: Order Comment: [facility] has implemented the eGFR calculation approach that does not have a coefficient for race that conforms to the NKF-ASN Task Force Recommendations. Result Comment: Joi mated GFR was calculated using the 2020 CKD-EPI creatinine equation. Performed By: #### 4 6449 ####[facility] [address] [place] [address] 82179 Glenn Gudino M.D. [id number] Glucose [Mass/Vol] 84 mg/dL Normal 65-99 [facility] Comment on above: Order Comment: [facility] has implemented the eGFR calculation approach that does not have a coefficient for race that conforms to the NKF-ASN Task Force Recommendations. Performed By: #### 4 6449 ####[facility] [address] [place] [address] 56225 Glenn Gudino M.D. [id number] HCO3 (Bld) [Moles/Vol] 21 mmol/L Normal 21-32 [facility] Comment on above: Order Comment: [facility] has implemented the eGFR calculation approach that does not have a coefficient for race that conforms to the NKF-ASN Task Force Recommendations. Performed By: #### 4 6449 ####[facility] [address] [place], [place] [address] Glenn Gudino M.D. [id number] Phosphate [Mass/Vol] 6.5 mg/dL High 2.8-4.1 [facility] Comment on above: Order Comment: [facility] has implemented the eGFR calculation approach that does not have a coefficient for race that conforms to the NKF-ASN Task Force Recommendations. Performed By: #### 4 6449 ####[facility] [address] [place], [place] [address] Glenn Gudino M.D. [id number] Potassium [Moles/Vol] 5.0 mmol/L Normal 3.5-5.1 [facility] Comment on above: Order Comment: [facility] has implemented the eGFR calculation approach that does not have a coefficient for race that conforms to the NKF-ASN Task Force Recommendations. Result Comment: Slig htly Hemolyzed Performed By: #### 4 6449 ####[facility] [address] [place] [address] 40329 Glenn Gudino M.D. [id number] Sodium [Moles/Vol] 136 mmol/L Normal 135-145 [facility] Comment on above: Order Comment: [facility] has implemented the eGFR calculation approach that does not have a coefficient for race that conforms to the NKF-ASN Task Force Recommendations. Performed By: #### 4 6449 ####[facility] [address] [place] [address] 17290 Glenn Gudino M.D. [id number] Urea nitrogen [Mass/Vol] 39 mg/dL High 8-25 [facility] Comment on above: Order Comment: [facility] has implemented the eGFR calculation approach that does not have a coefficient for race that conforms to the NKF-ASN Task Force Recommendations. Performed By: #### 4 6449 ####[facility] [address] [place] [address] 42658 Glenn Gudino M.D. [id number] Urea nitrogen/Creatinine [Mass ratio] 13.4 mg/mg Normal 10.0-20.0 [facility] Comment on above: Order Comment: [facility] has implemented the eGFR calculation approach that does not have a coefficient for race that conforms to the NKF-ASN Task Force Recommendations. Performed By: #### 4 6449 ####[facility] [address] [place] [address] 30383 Glenn Gudino M.D. [id number] XR ABDOMEN /KUB/FLAT PLATE/1 VIEWon 01-26-2024 XR ABDOMEN /KUB/FLAT PLATE/1 VIEW Normal [facility] Comment on above: Order Comment: Injur y/Trauma or Illness?:Illness/OtherHow long have you had these symptoms (acute/chronic)?:UnknownReason for exam?:NG placementHistory of cancer?:uSurgeries, chemotherapy, or radiation?:uType of Exam?:InitialAdditional signs and symptoms?:unk XR CHEST PA/APon 01-26-2024 XR CHEST PA/AP Normal [facility] Comment on above: Order Comment: Injur y/Trauma or Illness?:Illness/OtherHow long have you had these symptoms (acute/chronic)?:UnknownReason for exam?:eval LIJ placementHistory of cancer?:uSurgeries, chemotherapy, or radiation?:uType of Exam?:InitialAdditional signs and symptoms?:unk BASIC METABOLIC PANELon 08-2 Anion gap [Moles/Vol] 17 mmol/L Normal 10-20 [facility] Comment on above: Order Comment: [facility] has implemented the eGFR calculation approach that does not have a coefficient for race that conforms to the NKF-ASN Task Force Recommendations. Performed By: #### 4 6124 ####[facility] [address] [place], [place] [address] Glenn Gudino M.D. [id number] Calcium [Mass/Vol] 7.3 mg/dL Low 8.4-10.2 [facility] Comment on above: Order Comment: [facility] has implemented the eGFR calculation approach that does not have a coefficient for race that conforms to the NKF-ASN Task Force Recommendations. Performed By: #### 4 6124 ####[facility] [address] [place], [place] [address] Glenn Gudino M.D. [id number] Chloride [Moles/Vol] 106 mmol/L Normal 98-108 [facility] Comment on above: Order Comment: [facility] has implemented the eGFR calculation approach that does not have a coefficient for race that conforms to the NKF-ASN Task Force Recommendations. Performed By: #### 4 6124 ####[facility] [address] [place] [address] 69089 Glenn Gudino M.D. [id number] Creatinine [Mass/Vol] 2.50 mg/dL High 0.60-1.10 [facility] Comment on above: Order Comment: [facility] has implemented the eGFR calculation approach that does not have a coefficient for race that conforms to the NKF-ASN Task Force Recommendations. Performed By: #### 4 [id number] ####[facility] [address] [place], [place] [address] Glenn Gudino M.D. [id number] EGFR 21 mL/min/1.73 m2 Low >=60 [facility] Comment on above: Order Comment: [facility] has implemented the eGFR calculation approach that does not have a coefficient for race that conforms to the NKF-ASN Task Force Recommendations. Result Comment: Joi mated GFR was calculated using the 2020 CKD-EPI creatinine equation. Performed By: #### 4 [id number] ####[facility] [address] [place] [address] 73040 Glenn Gudino M.D. [id number] Glucose [Mass/Vol] 72 mg/dL Normal 65-99 [facility] Comment on above: Order Comment: [facility] has implemented the eGFR calculation approach that does not have a coefficient for race that conforms to the NKF-ASN Task Force Recommendations. Performed By: #### 4 [id number] ####[facility] [address] [place] [address] 30986 Glenn Gudino M.D. [id number] HCO3 (Bld) [Moles/Vol] 19 mmol/L Low 21-32 [facility] Comment on above: Order Comment: [facility] has implemented the eGFR calculation approach that does not have a coefficient for race that conforms to the NKF-ASN Task Force Recommendations. Performed By: #### 4 6124 ####[facility] [address] [place] [address] 07376 Glenn Gudino M.D. [id number] Potassium [Moles/Vol] 5.0 mmol/L Normal 3.5-5.1 [facility] Comment on above: Order Comment: [facility] has implemented the eGFR calculation approach that does not have a coefficient for race that conforms to the NKF-ASN Task Force Recommendations. Performed By: #### 4 6124 ####[facility] [address] [place] [address] 32999 Glenn Gudino M.D. [id number] Sodium [Moles/Vol] 137 mmol/L Normal 135-145 [facility] Comment on above: Order Comment: [facility] has implemented the eGFR calculation approach that does not have a coefficient for race that conforms to the NKF-ASN Task Force Recommendations. Performed By: #### 4 6124 ####[facility] [address] [place] [address] 34161 Glenn Gudino M.D. [id number] Urea nitrogen [Mass/Vol] 32 mg/dL High 8-25 [facility] Comment on above: Order Comment: [facility] has implemented the eGFR calculation approach that does not have a coefficient for race that conforms to the NKF-ASN Task Force Recommendations. Performed By: #### 4 6124 ####[facility] [address] [place] [address] 72907 Glenn Gudino M.D. [id number] Urea nitrogen/Creatinine [Mass ratio] 12.8 mg/mg Normal 10.0-20.0 [facility] Comment on above: Order Comment: [facility] has implemented the eGFR calculation approach that does not have a coefficient for race that conforms to the NKF-ASN Task Force Recommendations. Performed By: #### 4 6124 ####[facility] [address] [place] [address] 11297 Glenn Gudino M.D. [id number] Anion gap [Moles/Vol] 16 mmol/L Normal 10-20 [facility] Comment on above: Order Comment: [facility] has implemented the eGFR calculation approach that does not have a coefficient for race that conforms to the NKF-ASN Task Force Recommendations. Performed By: #### 4 6124 ####[facility] [address] [place] [address] 65203 Glenn Gudino M.D. [id number] Calcium [Mass/Vol] 7.3 mg/dL Low 8.4-10.2 [facility] Comment on above: Order Comment: [facility] has implemented the eGFR calculation approach that does not have a coefficient for race that conforms to the NKF-ASN Task Force Recommendations. Performed By: #### 4 6124 ####[facility] [address] [place] [address] 54337 Glenn Gudino M.D. [id number] Chloride [Moles/Vol] 109 mmol/L High 98-108 [facility] Comment on above: Order Comment: [facility] has implemented the eGFR calculation approach that does not have a coefficient for race that conforms to the NKF-ASN Task Force Recommendations. Performed By: #### 4 6124 ####[facility] [address] [place] [address] 21415 Glenn Gudino M.D. [id number] Creatinine [Mass/Vol] 2.31 mg/dL High 0.60-1.10 [facility] Comment on above: Order Comment: [facility] has implemented the eGFR calculation approach that does not have a coefficient for race that conforms to the NKF-ASN Task Force Recommendations. Performed By: #### 4 6124 ####[facility] [address] [place] [address] 07885 Glenn Gudino M.D. [id number] EGFR 24 mL/min/1.73 m2 Low >=60 [facility] Comment on above: Order Comment: [facility] has implemented the eGFR calculation approach that does not have a coefficient for race that conforms to the NKF-ASN Task Force Recommendations. Result Comment: Joi mated GFR was calculated using the 2020 CKD-EPI creatinine equation. Performed By: #### 4 6124 ####[facility] [address] [place] [address] 65884 Glenn Gudino M.D. [id number] Glucose [Mass/Vol] 115 mg/dL High 65-99 [facility] Comment on above: Order Comment: [facility] has implemented the eGFR calculation approach that does not have a coefficient for race that conforms to the NKF-ASN Task Force Recommendations. Performed By: #### 4 6142 ####[facility] [address] [place] [address] 14212 Glenn Gudino M.D. [id number] HCO3 (Bld) [Moles/Vol] 18 mmol/L Low 21-32 [facility] Comment on above: Order Comment: [facility] has implemented the eGFR calculation approach that does not have a coefficient for race that conforms to the NKF-ASN Task Force Recommendations. Performed By: #### 4 6124 ####[facility] [address] [place] [address] 24152 Glenn Gudino M.D. [id number] Potassium [Moles/Vol] 4.8 mmol/L Normal 3.5-5.1 [facility] Comment on above: Order Comment: [facility] has implemented the eGFR calculation approach that does not have a coefficient for race that conforms to the NKF-ASN Task Force Recommendations. Result Comment: Slig htly Hemolyzed Performed By: #### 4 6124 ####[facility] [address] [place] [address] 23008 Glenn Gudino M.D. [id number] Sodium [Moles/Vol] 138 mmol/L Normal 135-145 [facility] Comment on above: Order Comment: [facility] has implemented the eGFR calculation approach that does not have a coefficient for race that conforms to the NKF-ASN Task Force Recommendations. Performed By: #### 4 6124 ####[facility] [address] [place] [address] 45973 Glenn Gudino M.D. [id number] Urea nitrogen [Mass/Vol] 33 mg/dL High 8-25 [facility] Comment on above: Order Comment: [facility] has implemented the eGFR calculation approach that does not have a coefficient for race that conforms to the NKF-ASN Task Force Recommendations. Performed By: #### 4 6187 ####[facility] [address] [place] [address] 17199 Glenn Gudino M.D. [id number] Urea nitrogen/Creatinine [Mass ratio] 14.3 mg/mg Normal 10.0-20.0 [facility] Comment on above: Order Comment: [facility] has implemented the eGFR calculation approach that does not have a coefficient for race that conforms to the NKF-ASN Task Force Recommendations. Performed By: #### 4 6124 ####[facility] [address] [place], [place] [address] Glenn Gudino M.D. [id number] Anion gap [Moles/Vol] 16 mmol/L Normal 10-20 [facility] Comment on above: Order Comment: [facility] has implemented the eGFR calculation approach that does not have a coefficient for race that conforms to the NKF-ASN Task Force Recommendations. Performed By: #### 4 6124 ####[facility] [address] [place], [place] [address] Glenn Gudino M.D. [id number] Calcium [Mass/Vol] 7.7 mg/dL Low 8.4-10.2 [facility] Comment on above: Order Comment: [facility] has implemented the eGFR calculation approach that does not have a coefficient for race that conforms to the NKF-ASN Task Force Recommendations. Performed By: #### 4 6124 ####[facility] [address] [place] [address] 55297 Glenn Gudino M.D. [id number] Chloride [Moles/Vol] 109 mmol/L High 98-108 [facility] Comment on above: Order Comment: [facility] has implemented the eGFR calculation approach that does not have a coefficient for race that conforms to the NKF-ASN Task Force Recommendations. Performed By: #### 4 6124 ####[facility] [address] [place] [address] 45225 Glenn Gudino M.D. [id number] Creatinine [Mass/Vol] 2.24 mg/dL High 0.60-1.10 [facility] Comment on above: Order Comment: [facility] has implemented the eGFR calculation approach that does not have a coefficient for race that conforms to the NKF-ASN Task Force Recommendations. Performed By: #### 4 6183 ####[facility] [address] [place], [place] [address] Glenn Gudino M.D. [id number] EGFR 24 mL/min/1.73 m2 Low >=60 [facility] Comment on above: Order Comment: [facility] has implemented the eGFR calculation approach that does not have a coefficient for race that conforms to the NKF-ASN Task Force Recommendations. Result Comment: Joi mated GFR was calculated using the 2020 CKD-EPI creatinine equation. Performed By: #### 4 6124 ####[facility] [address] [place], [place] [address] Glenn Gudino M.D. [id number] Glucose [Mass/Vol] 73 mg/dL Normal 65-99 [facility] Comment on above: Order Comment: [facility] has implemented the eGFR calculation approach that does not have a coefficient for race that conforms to the NKF-ASN Task Force Recommendations. Performed By: #### 4 6124 ####[facility] [address] [place], [place] [address] Glenn Gudino M.D. [id number] HCO3 (Bld) [Moles/Vol] 18 mmol/L Low 21-32 [facility] Comment on above: Order Comment: [facility] has implemented the eGFR calculation approach that does not have a coefficient for race that conforms to the NKF-ASN Task Force Recommendations. Performed By: #### 4 6124 ####[facility] [address] [place], [place] [address] Glenn Gudino M.D. [id number] Potassium [Moles/Vol] 5.1 mmol/L Normal 3.5-5.1 [facility] Comment on above: Order Comment: [facility] has implemented the eGFR calculation approach that does not have a coefficient for race that conforms to the NKF-ASN Task Force Recommendations. Result Comment: Marisol leblanc Hemolyzed Performed By: #### 4 6124 ####[facility] [address] [place] [address] 12323 Glenn Gudino M.D. [id number] Sodium [Moles/Vol] 138 mmol/L Normal 135-145 [facility] Comment on above: Order Comment: [facility] has implemented the eGFR calculation approach that does not have a coefficient for race that conforms to the NKF-ASN Task Force Recommendations. Performed By: #### 4 6124 ####[facility] [address] [place] [address] 17261 Glenn Gudino M.D. [id number] Urea nitrogen [Mass/Vol] 32 mg/dL High 8-25 [facility] Comment on above: Order Comment: [facility] has implemented the eGFR calculation approach that does not have a coefficient for race that conforms to the NKF-ASN Task Force Recommendations. Performed By: #### 4 6124 ####[facility] [address] [place] [address] 97037 Glenn Gudino M.D. [id number] Urea nitrogen/Creatinine [Mass ratio] 14.3 mg/mg Normal 10.0-20.0 [facility] Comment on above: Order Comment: [facility] has implemented the eGFR calculation approach that does not have a coefficient for race that conforms to the NKF-ASN Task Force Recommendations. Performed By: #### 4 6124 ####[facility] [address] [place] [address] 16176 Glenn Gudino M.D. [id number] Anion gap [Moles/Vol] 16 mmol/L Normal 10-20 [facility] Comment on above: Order Comment: [facility] has implemented the eGFR calculation approach that does not have a coefficient for race that conforms to the NKF-ASN Task Force Recommendations. Performed By: #### 4 6124 ####[facility] [address] [place] [address] 52044 Glenn Gudino M.D. [id number] Calcium [Mass/Vol] 7.4 mg/dL Low 8.4-10.2 [facility] Comment on above: Order Comment: [facility] has implemented the eGFR calculation approach that does not have a coefficient for race that conforms to the NKF-ASN Task Force Recommendations. Performed By: #### 4 6124 ####[facility] [address] [place] [address] 51494 Glenn Gudino M.D. [id number] Chloride [Moles/Vol] 110 mmol/L High 98-108 [facility] Comment on above: Order Comment: [facility] has implemented the eGFR calculation approach that does not have a coefficient for race that conforms to the NKF-ASN Task Force Recommendations. Performed By: #### 4 6124 ####[facility] [address] [place] [address] 48318 Glenn Gudino M.D. [id number] Creatinine [Mass/Vol] 2.19 mg/dL High 0.60-1.10 [facility] Comment on above: Order Comment: [facility] has implemented the eGFR calculation approach that does not have a coefficient for race that conforms to the NKF-ASN Task Force Recommendations. Performed By: #### 4 6124 ####[facility] [address] [place] [address] 29201 Glenn Gudino M.D. [id number] EGFR 25 mL/min/1.73 m2 Low >=60 [facility] Comment on above: Order Comment: [facility] has implemented the eGFR calculation approach that does not have a coefficient for race that conforms to the NKF-ASN Task Force Recommendations. Result Comment: Joi mated GFR was calculated using the 2020 CKD-EPI creatinine equation. Performed By: #### 4 6124 ####[facility] [address] [place] [address] 90882 Glenn Gudino M.D. [id number] Glucose [Mass/Vol] 95 mg/dL Normal 65-99 [facility] Comment on above: Order Comment: [facility] has implemented the eGFR calculation approach that does not have a coefficient for race that conforms to the NKF-ASN Task Force Recommendations. Performed By: #### 4 6124 ####[facility] [address] [place], [place] [address] Glenn Gudino M.D. [id number] HCO3 (Bld) [Moles/Vol] 17 mmol/L Low 21-32 [facility] Comment on above: Order Comment: [facility] has implemented the eGFR calculation approach that does not have a coefficient for race that conforms to the NKF-ASN Task Force Recommendations. Performed By: #### 4 6124 ####[facility] [address] [place], [place] [address] Glenn Gudino M.D. [id number] Potassium [Moles/Vol] 4.6 mmol/L Normal 3.5-5.1 [facility] Comment on above: Order Comment: [facility] has implemented the eGFR calculation approach that does not have a coefficient for race that conforms to the NKF-ASN Task Force Recommendations. Performed By: #### 4 6124 ####[facility] [address] [place], [place] [address] Glenn Gudino M.D. [id number] Sodium [Moles/Vol] 138 mmol/L Normal 135-145 [facility] Comment on above: Order Comment: [facility] has implemented the eGFR calculation approach that does not have a coefficient for race that conforms to the NKF-ASN Task Force Recommendations. Performed By: #### 4 6124 ####[facility] [address] [place], [place] [address] Glenn Gudino M.D. [id number] Urea nitrogen [Mass/Vol] 31 mg/dL High 8-25 [facility] Comment on above: Order Comment: [facility] has implemented the eGFR calculation approach that does not have a coefficient for race that conforms to the NKF-ASN Task Force Recommendations. Performed By: #### 4 6124 ####[facility] [address] [place], [place] [address] Glenn Gudino M.D. [id number] Urea nitrogen/Creatinine [Mass ratio] 14.2 mg/mg Normal 10.0-20.0 [facility] Comment on above: Order Comment: [facility] has implemented the eGFR calculation approach that does not have a coefficient for race that conforms to the NKF-ASN Task Force Recommendations. Performed By: #### 4 6124 ####[facility] [address] [place], [place] [address] Glenn Gudino M.D. [id number] Anion gap [Moles/Vol] 18 mmol/L Normal 10-20 [facility] Comment on above: Order Comment: [facility] has implemented the eGFR calculation approach that does not have a coefficient for race that conforms to the NKF-ASN Task Force Recommendations. Performed By: #### 4 6124 ####[facility] [address] [place] [address] 55577 Glenn Gudino M.D. [id number] Calcium [Mass/Vol] 7.0 mg/dL Low 8.4-10.2 [facility] Comment on above: Order Comment: [facility] has implemented the eGFR calculation approach that does not have a coefficient for race that conforms to the NKF-ASN Task Force Recommendations. Performed By: #### 4 6138 ####[facility] [address] [place], [place] [address] Glenn Gudino M.D. [id number] Chloride [Moles/Vol] 109 mmol/L High 98-108 [facility] Comment on above: Order Comment: [facility] has implemented the eGFR calculation approach that does not have a coefficient for race that conforms to the NKF-ASN Task Force Recommendations. Performed By: #### 4 6124 ####[facility] [address] [place] [address] 59772 Glenn Gudino M.D. [id number] Creatinine [Mass/Vol] 1.78 mg/dL High 0.60-1.10 [facility] Comment on above: Order Comment: [facility] has implemented the eGFR calculation approach that does not have a coefficient for race that conforms to the NKF-ASN Task Force Recommendations. Performed By: #### 4 6124 ####[facility] [address] [place] [address] 84344 Glenn Gudino M.D. [id number] EGFR 32 mL/min/1.73 m2 Low >=60 [facility] Comment on above: Order Comment: [facility] has implemented the eGFR calculation approach that does not have a coefficient for race that conforms to the NKF-ASN Task Force Recommendations. Result Comment: Joi mated GFR was calculated using the 2020 CKD-EPI creatinine equation. Performed By: #### 4 6124 ####[facility] [address] [place] [address] 73976 Glenn Gudino M.D. [id number] Glucose [Mass/Vol] 140 mg/dL High 65-99 [facility] Comment on above: Order Comment: [facility] has implemented the eGFR calculation approach that does not have a coefficient for race that conforms to the NKF-ASN Task Force Recommendations. Performed By: #### 4 6124 ####[facility] [address] [place] [address] 02627 Glenn Gudino M.D. [id number] HCO3 (Bld) [Moles/Vol] 17 mmol/L Low 21-32 [facility] Comment on above: Order Comment: [facility] has implemented the eGFR calculation approach that does not have a coefficient for race that conforms to the NKF-ASN Task Force Recommendations. Performed By: #### 4 6124 ####[facility] [address] [place] [address] 73673 Glenn Gudino M.D. [id number] Sodium [Moles/Vol] 139 mmol/L Normal 135-145 [facility] Comment on above: Order Comment: [facility] has implemented the eGFR calculation approach that does not have a coefficient for race that conforms to the NKF-ASN Task Force Recommendations. Performed By: #### 4 6124 ####[facility] [address] [place] [address] 99638 Glenn Gudino M.D. [id number] Urea nitrogen [Mass/Vol] 29 mg/dL High 8-25 [facility] Comment on above: Order Comment: [facility] has implemented the eGFR calculation approach that does not have a coefficient for race that conforms to the NKF-ASN Task Force Recommendations. Performed By: #### 4 6124 ####[facility] [address] [place] [address] 24646 Glenn Gudino M.D. [id number] Urea nitrogen/Creatinine [Mass ratio] 16.3 mg/mg Normal 10.0-20.0 [facility] Comment on above: Order Comment: [facility] has implemented the eGFR calculation approach that does not have a coefficient for race that conforms to the NKF-ASN Task Force Recommendations. Performed By: #### 4 6124 ####[facility] [address] [place] [address] 11305 Glenn Gudino M.D. [id number] CALCIUM, IONIZEDon 4 CALCIUM IONIZED 4.4 mg/dL Low 4.5-5.3 [facility] Comment on above: Performed By: #### 4 5190 ####[facility] [address] [place] [address] 29124 Glenn Gudino M.D. [id number] CBCon 01-25-2024 AUTO NRBC 0.0 % Normal [facility] Comment on above: Performed By: #### 4 [id number] ####[facility] [address] [place] [address] 45410 Glenn Gudino M.D. [id number] AUTO NRBC ABS COUNT 0.00 K/mcL Normal 0.00-0.00 [facility] Comment on above: Performed By: #### 4 [id number] ####[facility] [address] [place], [place] [address] Glenn Gudino M.D. [id number] Erythrocyte distribution width (RBC) [Ratio] 16.8 % High 11.6-14.8 [facility] Comment on above: Performed By: #### 4 [id number] ####[facility] [address] [place], [place] [address] Glenn Gudino M.D. [id number] Hematocrit (Bld) [Volume fraction] 34.2 % Low 36.0-46.0 [facility] Comment on above: Performed By: #### 4 [id number] ####[facility] [address] [place], [place] [address] Glenn Gudino M.D. [id number] Hemoglobin (Bld) [Mass/Vol] 11.4 g/dL Low 12.0-16.0 [facility] Comment on above: Performed By: #### 4 5218 ####[facility] [address] [place], [place] [address] Glenn Gudino M.D. [id number] MCH (RBC) [Entitic mass] 28.8 pg Normal 26.0-34.0 [facility] Comment on above: Performed By: #### 4 [id number] ####[facility] [address] [place], [place] [address] Glenn Gudino M.D. [id number] MCV (RBC) [Entitic vol] 86.4 fL Normal 80.0-100.0 [facility] Comment on above: Performed By: #### 4 [id number] ####[facility] [address] [place], [place] [address] Glenn Gudino M.D. [id number] MEAN CORPUSCULAR HEMOGLOBIN CONC 33.3 g/dL Normal 31.0-37.0 [facility] Comment on above: Performed By: #### 4 5218 ####[facility] [address] [place], [place] [address] Glenn Gudino M.D. [id number] Platelet mean volume (Bld) [Entitic vol] 11.0 fL Normal 9.4-12.4 [facility] Comment on above: Performed By: #### 4 [id number] ####[facility] [address] [place], [place] [address] Glenn Gudino M.D. [id number] Platelets (Bld) [#/Vol] 111 10*3/uL Low 150-400 [facility] Comment on above: Performed By: #### 4 [id number] ####[facility] [address] [place], [place] [address] Glenn Gudino M.D. [id number] RBC (Bld) [#/Vol] 3.96 10*6/uL Low 4.00-5.20 [facility] Comment on above: Performed By: #### 4 5218 ####[facility] [address] [place] [address] Glenn Gudino M.D. [id number] WBC (Bld) [#/Vol] 12.12 10*3/uL High 4.50-11.00 [facility] Comment on above: Performed By: #### 4 5218 ####[facility] [address] [place] [address] Glenn Gudino M.D. [id number] AUTO NRBC 0.0 % Normal [facility] Comment on above: Performed By: #### 4 [id number] ####[facility] [address] [place], [place] [address] Glenn Gudino M.D. [id number] AUTO NRBC ABS COUNT 0.00 K/mcL Normal 0.00-0.00 [facility] Comment on above: Performed By: #### 4 5218 ####[facility] [address] [place] [address] Glenn Gudino M.D. [id number] Erythrocyte distribution width (RBC) [Ratio] 16.3 % High 11.6-14.8 [facility] Comment on above: Performed By: #### 4 5218 ####[facility] [address] [place] [address] Glenn Gudino M.D. [id number] Hematocrit (Bld) [Volume fraction] 36.7 % Normal 36.0-46.0 [facility] Comment on above: Performed By: #### 4 5218 ####[facility] [address] [place] [address] Glenn Gudino M.D. [id number] Hemoglobin (Bld) [Mass/Vol] 12.7 g/dL Normal 12.0-16.0 [facility] Comment on above: Performed By: #### 4 5218 ####[facility] [address] [place], [place] [address] Glenn Gudino M.D. [id number] MCH (RBC) [Entitic mass] 29.5 pg Normal 26.0-34.0 [facility] Comment on above: Performed By: #### 4 5261 ####[facility] [address] [place], [place] [address] Glenn Gudino M.D. [id number] MCV (RBC) [Entitic vol] 85.2 fL Normal 80.0-100.0 [facility] Comment on above: Performed By: #### 4 5218 ####[facility] [address] [place] [address] Glenn Gudino M.D. [id number] MEAN CORPUSCULAR HEMOGLOBIN CONC 34.6 g/dL Normal 31.0-37.0 [facility] Comment on above: Performed By: #### 4 5218 ####[facility] [address] [place] [address] Glenn Gudino M.D. [id number] Platelet mean volume (Bld) [Entitic vol] 10.3 fL Normal 9.4-12.4 [facility] Comment on above: Performed By: #### 4 5218 ####[facility] [address] [place], [place] [address] Glenn Gudino M.D. [id number] Platelets (Bld) [#/Vol] 126 10*3/uL Low 150-400 [facility] Comment on above: Result Comment: Resu lts checked Performed By: #### 4 5218 ####[facility] [address] [place], [place] [address] Glenn Gudino M.D. [id number] RBC (Bld) [#/Vol] 4.31 10*6/uL Normal 4.00-5.20 [facility] Comment on above: Performed By: #### 4 5218 ####[facility] [address] [place], [place] [address] Glenn Gudino M.D. [id number] WBC (Bld) [#/Vol] 12.24 10*3/uL High 4.50-11.00 [facility] Comment on above: Performed By: #### 4 5218 ####[facility] [address] [place], [place] [address] Glenn Gudino M.D. [id number] CPKon 08-29-2024 CPK 364 U/L High 40-170 [facility] Comment on above: Performed By: #### 4 8261 ####[facility] [address] [place] [address] Glenn Gudino M.D. [id number] MAGNESIUM LEVELon 01-25-2024 Magnesium [Mass/Vol] 2.5 mg/dL High 1.6-2.4 [facility] Comment on above: Performed By: #### 4 6109 ####[facility] [address] [place] [address] Glenn Gudino M.D. [id number] Magnesium [Mass/Vol] 2.5 mg/dL High 1.6-2.4 [facility] Comment on above: Performed By: #### 4 6109 ####[facility] [address] [place] [address] Glenn Gudino M.D. [id number] POC ARTERIAL BLOOD GAS PANEL [facility] 01-25-2024 BASE EXCESS, ARTERIAL -5.1 Low -2.0-2.0 [facility] Comment on above: Performed By: #### 4 8716 ####[facility] [address] [place] [address] [id number] [facility] CALCIUM IONIZED 4.4 mg/dL Low 4.5-5.3 [facility] Comment on above: Performed By: #### 4 8716 ####[facility] [address] [place] [address] [id number] [facility] CARBOXYHEMOGLOBIN 1.2 % of total Hb Normal <=1.5 [facility] Comment on above: Result Comment: Refe rence Ranges:Suburban Non-smokers: <1.5%Smokers: 1.5-5.0%Heavy Smokers: 5.0-9.0% Performed By: #### 4 8792 ####[facility] [address] [place] [address] [id number] [facility] Chloride [Moles/Vol] 109 mmol/L High 98-108 [facility] Comment on above: Performed By: #### 4 8716 ####[facility] [address] [place] [address] [id number] [facility] Glucose [Mass/Vol] 78 mg/dL Normal 65-99 [facility] Comment on above: Performed By: #### 4 8716 ####[facility] [address] [place] [address] [id number] [facility] HCO3 (Bld) [Moles/Vol] 19.1 mmol/L Low 22.0-26.0 [facility] Comment on above: Performed By: #### 4 0316 ####[facility] [address] [place] [address] [id number] [facility] Hematocrit (Bld) [Volume fraction] 34.0 % Low 36.0-46.0 [facility] Comment on above: Performed By: #### 4 5216 ####[facility] [address] [place] [address] [id number] [facility] Hemoglobin (Bld) [Mass/Vol] 11.1 g/dL Low 12.0-16.0 [facility] Comment on above: Performed By: #### 4 5316 ####[facility] [address] [place] [address] [id number] [facility] LACTIC ACID, WHOLE BLOOD 1.9 mmol/L Normal 0.6-2.0 [facility] Comment on above: Performed By: #### 4 3416 ####[facility] [address] [place] [address] [id number] [facility] LITER FLOW 4 Normal [facility] Comment on above: Performed By: #### 4 2298 ####[facility] [address] [place] [address] [id number] [facility] METHEMOGLOBIN < Normal 0.0-2.0 [facility] Comment on above: Performed By: #### 4 6823 ####[facility] [address] [place] [address] [id number] [facility] O2HB 97.6 % Normal 94.0-98.0 [facility] Comment on above: Performed By: #### 4 8716 ####[facility] [address] [place] [address] [id number] [facility] Oxygen saturation in Blood 99.3 % High 92.0-99.0 [facility] Comment on above: Performed By: #### 4 8716 ####[facility] [address] [place] [address] [id number] [facility] PCO2 ARTERIAL 32.0 mm Hg Low 35.0-45.0 [facility] Comment on above: Performed By: #### 4 8716 ####[facility] [address] [place] [address] [id number] [facility] PH ARTERIAL 7.39 Normal 7.35-7.45 [facility] Comment on above: Performed By: #### 4 8716 ####[facility] [address] [place] [address] [id number] [facility] PO2 ARTERIAL 132 mm Hg High 80-100 [facility] Comment on above: Performed By: #### 4 8716 ####[facility] [address] [place] [address] [id number] [facility] Potassium [Moles/Vol] 4.6 mmol/L Normal 3.5-5.1 [facility] Comment on above: Performed By: #### 4 8716 ####[facility] [address] [place] [address] [id number] [facility] RESULT NOTIFICATION 05586 Normal [facility] Comment on above: Performed By: #### 4 8716 ####[facility] [address] [place] [address] [id number] [facility] Sodium [Moles/Vol] 134 mmol/L Low 135-145 [facility] Comment on above: Performed By: #### 4 8716 ####[facility] [address] [place] [address] [id number] [facility] POC GLUCOSE - [facility] 024 Glucose [Mass/Vol] 79 mg/dL Normal 65-99 [facility] Comment on above: Performed By: #### 4 6932 ####[facility] [address] [place] [address] [id number] [facility] Glucose [Mass/Vol] 74 mg/dL Normal 65-99 [facility] Comment on above: Performed By: #### 4 6932 ####[facility] [address] [place] [address] [id number] [facility] Glucose [Mass/Vol] 96 mg/dL Normal 65-99 [facility] Comment on above: Performed By: #### 4 6932 ####[facility] [address] [place] [address] [id number] [facility] Glucose [Mass/Vol] 65 mg/dL Normal 65-99 [facility] Comment on above: Performed By: #### 4 0011 ####[facility] [address] [place] [address] [id number] [facility] Glucose [Mass/Vol] 34 mg/dL Off scale low 65-99 [facility] Comment on above: Order Comment: Criti cherrie result acted upon time of test. Test performed at bedside. Performed By: #### 4 0144 ####[facility] [address] [place] [address] [id number] [facility] Glucose [Mass/Vol] 77 mg/dL Normal 65-99 [facility] Comment on above: Performed By: #### 4 1548 ####[facility] [address] [place] [address] [id number] [facility] Glucose [Mass/Vol] 50 mg/dL Low 65-99 [facility] Comment on above: Performed By: #### 4 1331 ####[facility] [address] [place] [address] [id number] [facility] Glucose [Mass/Vol] 75 mg/dL Normal 65-99 [facility] Comment on above: Performed By: #### 4 6932 ####[facility] [address] [place] [address] [id number] [facility] Glucose [Mass/Vol] 136 mg/dL High 65-99 [facility] Comment on above: Performed By: #### 4 6932 ####[facility] [address] [place] [address] [id number] [facility] POTASSIUM LEVELon 01-25-2024 Potassium [Moles/Vol] 5.0 mmol/L Normal 3.5-5.1 [facility] Comment on above: Result Comment: Slig htly Hemolyzed Performed By: #### 4 6351 ####[facility] [address] [place] [address] Glenn Gudino M.D. [id number] Order Comment: [facility] has implemented the eGFR calculation approach that does not have a coefficient for race that conforms to the NKF-ASN Task Force Recommendations. Performed By: #### 4 6124 ####[facility] [address] [place], [place] [address] Glenn Gudino M.D. [id number] PT/INRon 01-25-2024 INR Coag (PPP) [Relative time] 1.2 {INR} High 0.8-1.1 [facility] Comment on above: Order Comment: Jennifer retana the induction phase of oral anticoagulation, the INR may not reflect the anticoagulation status of the patient. Therapeutic ranges for INR's are:Most clinical situations: INR 2.0-3.0Mechanical Prosthetic Valve: INR 2.5-3.5Critical: INR >5.0 Performed By: #### 4 6391 ####[facility] [address] [place], [place] [address] Glenn Gudino M.D. [id number] PT Coag (PPP) [Time] 15.5 s High 11.8-14.3 [facility] Comment on above: Order Comment: Jennifer mazin the induction phase of oral anticoagulation, the INR may not reflect the anticoagulation status of the patient. Therapeutic ranges for INR's are:Most clinical situations: INR 2.0-3.0Mechanical Prosthetic Valve: INR 2.5-3.5Critical: INR >5.0 Performed By: #### 4 6391 ####[facility] [address] [place] [address] Glenn Gudino M.D. [id number] RENAL FUNCTION PANELon 01-24 Albumin [Mass/Vol] 2.1 g/dL Low 3.2-5.2 [facility] Comment on above: Order Comment: [facility] has implemented the eGFR calculation approach that does not have a coefficient for race that conforms to the NKF-ASN Task Force Recommendations. Performed By: #### 4 6449 ####[facility] [address] [place], [place] [address] Glenn Gudino M.D. [id number] Anion gap [Moles/Vol] 18 mmol/L Normal 10-20 [facility] Comment on above: Order Comment: [facility] has implemented the eGFR calculation approach that does not have a coefficient for race that conforms to the NKF-ASN Task Force Recommendations. Performed By: #### 4 6449 ####[facility] [address] [place], [place] [address] Glenn Gudino M.D. [id number] Performed By: #### 4 6124 ####[facility] [address] [place] [address] Glenn Gudino M.D. [id number] Calcium [Mass/Vol] 7.5 mg/dL Low 8.4-10.2 [facility] Comment on above: Order Comment: [facility] has implemented the eGFR calculation approach that does not have a coefficient for race that conforms to the NKF-ASN Task Force Recommendations. Performed By: #### 4 6449 ####[facility] [address] [place] [address] Glenn Gudino M.D. [id number] Performed By: #### 4 6124 ####[facility] [address] [place], [place] [address] Glenn Gudino M.D. [id number] Chloride [Moles/Vol] 110 mmol/L High 98-108 [facility] Comment on above: Order Comment: [facility] has implemented the eGFR calculation approach that does not have a coefficient for race that conforms to the NKF-ASN Task Force Recommendations. Performed By: #### 4 6449 ####[facility] [address] [place] [address] Glenn Gudino M.D. [id number] Performed By: #### 4 6124 ####[facility] [address] [place] [address] Glenn Gudino M.D. [id number] Creatinine [Mass/Vol] 1.99 mg/dL High 0.60-1.10 [facility] Comment on above: Order Comment: [facility] has implemented the eGFR calculation approach that does not have a coefficient for race that conforms to the NKF-ASN Task Force Recommendations. Performed By: #### 4 6449 ####[facility] [address] [place], [place] [address] Glenn Gudino M.D. [id number] Performed By: #### 4 6124 ####[facility] [address] [place], [place] [address] Glenn Gudino M.D. [id number] EGFR 28 mL/min/1.73 m2 Low >=60 [facility] Comment on above: Order Comment: [facility] has implemented the eGFR calculation approach that does not have a coefficient for race that conforms to the NKF-ASN Task Force Recommendations. Result Comment: Joi mated GFR was calculated using the 2020 CKD-EPI creatinine equation.Estimated GFR was calculated using the 2020 CKD-EPI creatinine equation. Performed By: #### 4 6449 ####[facility] [address] [place], [place] [address] Glenn Gudino M.D. [id number] Result Comment: Joi mated GFR was calculated using the 2020 CKD-EPI creatinine equation. Performed By: #### 4 6124 ####[facility] [address] [place], [place] [address] Glenn Gudino M.D. [id number] Glucose [Mass/Vol] 127 mg/dL High 65-99 [facility] Comment on above: Order Comment: [facility] has implemented the eGFR calculation approach that does not have a coefficient for race that conforms to the NKF-ASN Task Force Recommendations. Performed By: #### 4 6449 ####[facility] [address] [place] [address] Glenn Gudino M.D. [id number] Performed By: #### 4 6124 ####[facility] [address] [place], [place] [address] Glenn Gudino M.D. [id number] HCO3 (Bld) [Moles/Vol] 17 mmol/L Low 21-32 [facility] Comment on above: Order Comment: [facility] has implemented the eGFR calculation approach that does not have a coefficient for race that conforms to the NKF-ASN Task Force Recommendations. Performed By: #### 4 6449 ####[facility] [address] [place], [place] [address] Glenn Gudino M.D. [id number] Performed By: #### 4 6124 ####[facility] [address] [place] [address] Glenn Gudino M.D. [id number] Phosphate [Mass/Vol] 5.4 mg/dL High 2.8-4.1 [facility] Comment on above: Order Comment: [facility] has implemented the eGFR calculation approach that does not have a coefficient for race that conforms to the NKF-ASN Task Force Recommendations. Performed By: #### 4 6449 ####[facility] [address] [place] [address] Glenn Gudino M.D. [id number] Potassium [Moles/Vol] 5.0 mmol/L Normal 3.5-5.1 [facility] Comment on above: Order Comment: [facility] has implemented the eGFR calculation approach that does not have a coefficient for race that conforms to the NKF-ASN Task Force Recommendations. Result Comment: Marisol htly Hemolyzed Performed By: #### 4 6449 ####[facility] [address] [place], [place] [address] Glenn Gudino M.D. [id number] Performed By: #### 4 6124 ####[facility] [address] [place] [address] Glenn Gudino M.D. [id number] Sodium [Moles/Vol] 140 mmol/L Normal 135-145 [facility] Comment on above: Order Comment: [facility] has implemented the eGFR calculation approach that does not have a coefficient for race that conforms to the NKF-ASN Task Force Recommendations. Performed By: #### 4 6449 ####[facility] [address] [place], [place] [address] Glenn Gudino M.D. [id number] Performed By: #### 4 6124 ####[facility] [address] [place], [place] [address] Glenn Gudino M.D. [id number] Urea nitrogen [Mass/Vol] 30 mg/dL High 8-25 [facility] Comment on above: Order Comment: [facility] has implemented the eGFR calculation approach that does not have a coefficient for race that conforms to the NKF-ASN Task Force Recommendations. Performed By: #### 4 6449 ####[facility] [address] [place] [address] Glenn Gudino M.D. [id number] Performed By: #### 4 6124 ####[facility] [address] [place] [address] Glenn Gudino M.D. [id number] Urea nitrogen/Creatinine [Mass ratio] 15.1 mg/mg Normal 10.0-20.0 [facility] Comment on above: Order Comment: [facility] has implemented the eGFR calculation approach that does not have a coefficient for race that conforms to the NKF-ASN Task Force Recommendations. Performed By: #### 4 6449 ####[facility] [address] [place] [address] Glenn Gudino M.D. [id number] Performed By: #### 4 6124 ####[facility] [address] [place], [place] [address] Glenn Gudino M.D. [id number] XR CHEST PA/APon 01-25-2024 XR CHEST PA/AP [facility] Comment on above: Order Comment: Injur y/Trauma or Illness?:Illness/OtherHow long have you had these symptoms (acute/chronic)?:AcuteReason for exam?:ettHistory of cancer?:uSurgeries, chemotherapy, or radiation?:uType of Exam?:OngoingAdditional signs and symptoms?:ett ANTIBODY IDENTIFICATION ARC- Con 01-24-2024 ANTIBODY IDENTIFICATION ARC-C [facility] Comment on above: Performed By: #### A BIDARC_Anti-C ####[facility] [address] [place] [address] Nurys Oneill MD [id number] [facility] ANTIBODY IDENTIFICATION ARC- FYAon 01-24-2024 ANTIBODY IDENTIFICATION ARC-FYA [facility] Comment on above: Performed By: #### A BIDARC_Anti-Fya ####[facility] [address] [place] [address] Nurys Oneill MD [id number] [facility] ANTIBODY IDENTIFICATION ARC- INCon 01-24-2024 ANTIBODY IDENTIFICATION ARC-INC Normal [facility] Comment on above: Performed By: #### A BIDARC_Inconclusive ####[facility] [place] [address] Nurys Oneill MD [id number] [facility] APTTon 01-24-2024 aPTT Coag (Bld) [Time] 37 s High 23-34 [facility] Comment on above: Order Comment: Thera peutic range for APTT's is 68 - 104 seconds Result Comment: Resu lts checked. Performed By: #### 4 5113 ####[facility] [address] [place] [address] Glenn Gudino M.D. [id number] BASIC METABOLIC PANELon 08- Anion gap [Moles/Vol] 15 mmol/L Normal 10-20 [facility] Comment on above: Order Comment: [facility] has implemented the eGFR calculation approach that does not have a coefficient for race that conforms to the NKF-ASN Task Force Recommendations. Performed By: #### 4 6124 ####[facility] [address] [place], [place] [address] Glenn Gudino M.D. [id number] Calcium [Mass/Vol] 7.6 mg/dL Low 8.4-10.2 [facility] Comment on above: Order Comment: [facility] has implemented the eGFR calculation approach that does not have a coefficient for race that conforms to the NKF-ASN Task Force Recommendations. Performed By: #### 4 6124 ####[facility] [address] [place], [place] [address] Glenn Gudino M.D. [id number] Chloride [Moles/Vol] 111 mmol/L High 98-108 [facility] Comment on above: Order Comment: [facility] has implemented the eGFR calculation approach that does not have a coefficient for race that conforms to the NKF-ASN Task Force Recommendations. Performed By: #### 4 6124 ####[facility] [address] [place], [place] [address] Glenn Gudino M.D. [id number] Creatinine [Mass/Vol] 1.77 mg/dL High 0.60-1.10 [facility] Comment on above: Order Comment: [facility] has implemented the eGFR calculation approach that does not have a coefficient for race that conforms to the NKF-ASN Task Force Recommendations. Performed By: #### 4 6124 ####[facility] [address] [place], [place] [address] Glenn Gudino M.D. [id number] EGFR 32 mL/min/1.73 m2 Low >=60 [facility] Comment on above: Order Comment: [facility] has implemented the eGFR calculation approach that does not have a coefficient for race that conforms to the NKF-ASN Task Force Recommendations. Result Comment: Joi mated GFR was calculated using the 2020 CKD-EPI creatinine equation. Performed By: #### 4 6124 ####[facility] [address] [place] [address] Glenn Gudino M.D. [id number] Glucose [Mass/Vol] 164 mg/dL High 65-99 [facility] Comment on above: Order Comment: [facility] has implemented the eGFR calculation approach that does not have a coefficient for race that conforms to the NKF-ASN Task Force Recommendations. Performed By: #### 4 6124 ####[facility] [address] [place] [address] Glenn Gudino M.D. [id number] HCO3 (Bld) [Moles/Vol] 18 mmol/L Low 21-32 [facility] Comment on above: Order Comment: [facility] has implemented the eGFR calculation approach that does not have a coefficient for race that conforms to the NKF-ASN Task Force Recommendations. Performed By: #### 4 6124 ####[facility] [address] [place] [address] Glenn Gudino M.D. [id number] Potassium [Moles/Vol] 4.7 mmol/L Normal 3.5-5.1 [facility] Comment on above: Order Comment: [facility] has implemented the eGFR calculation approach that does not have a coefficient for race that conforms to the NKF-ASN Task Force Recommendations. Performed By: #### 4 6124 ####[facility] [address] [place] [address]91[address] Glenn Gudino M.D. [id number] Sodium [Moles/Vol] 139 mmol/L Normal 135-145 [facility] Comment on above: Order Comment: [facility] has implemented the eGFR calculation approach that does not have a coefficient for race that conforms to the NKF-ASN Task Force Recommendations. Performed By: #### 4 6124 ####[facility] [address] [place] [address]12[address] Glenn Gudino M.D. [id number] Urea nitrogen [Mass/Vol] 27 mg/dL High 8-25 [facility] Comment on above: Order Comment: [facility] has implemented the eGFR calculation approach that does not have a coefficient for race that conforms to the NKF-ASN Task Force Recommendations. Performed By: #### 4 6124 ####[facility] [address] [place] [address] 813[address] Glenn Gudino M.D. [id number] Urea nitrogen/Creatinine [Mass ratio] 15.3 mg/mg Normal 10.0-20.0 [facility] Comment on above: Order Comment: [facility] has implemented the eGFR calculation approach that does not have a coefficient for race that conforms to the NKF-ASN Task Force Recommendations. Performed By: #### 4 6124 ####[facility] [address] [place], [place] [address] Glenn Gudino M.D. [id number] Anion gap [Moles/Vol] 16 mmol/L Normal 10-20 [facility] Comment on above: Order Comment: [facility] has implemented the eGFR calculation approach that does not have a coefficient for race that conforms to the NKF-ASN Task Force Recommendations. Performed By: #### 4 6124 ####[facility] [address] [place] [address] Glenn Gudino M.D. [id number] Performed By: #### 4 6126 ####[facility] [address] [place] [address] Glenn Gudino M.D. [id number] Calcium [Mass/Vol] 6.2 mg/dL Low 8.4-10.2 [facility] Comment on above: Order Comment: [facility] has implemented the eGFR calculation approach that does not have a coefficient for race that conforms to the NKF-ASN Task Force Recommendations. Performed By: #### 4 6124 ####[facility] [address] [place] [address] Glenn Gudino M.D. [id number] Performed By: #### 4 6126 ####[facility] [address] [place], [place] [address] Glenn Gudino M.D. [id number] Chloride [Moles/Vol] 115 mmol/L High 98-108 [facility] Comment on above: Order Comment: [facility] has implemented the eGFR calculation approach that does not have a coefficient for race that conforms to the NKF-ASN Task Force Recommendations. Performed By: #### 4 6124 ####[facility] [address] [place] [address] Glenn Gudino M.D. [id number] Performed By: #### 4 6106 ####[facility] [address] [place] [address] 136[address] Glenn Gudino M.D. [id number] Creatinine [Mass/Vol] 1.54 mg/dL High 0.60-1.10 [facility] Comment on above: Order Comment: [facility] has implemented the eGFR calculation approach that does not have a coefficient for race that conforms to the NKF-ASN Task Force Recommendations. Performed By: #### 4 6124 ####[facility] [address] [place] [address] Glenn Gudino M.D. [id number] Performed By: #### 4 6126 ####[facility] [address] [place], [place] [address] Glenn Gudino M.D. [id number] EGFR 38 mL/min/1.73 m2 Low >=60 [facility] Comment on above: Order Comment: [facility] has implemented the eGFR calculation approach that does not have a coefficient for race that conforms to the NKF-ASN Task Force Recommendations. Result Comment: Joi mated GFR was calculated using the 2020 CKD-EPI creatinine equation.Estimated GFR was calculated using the 2020 CKD-EPI creatinine equation. Performed By: #### 4 6124 ####[facility] [address] [place] [address] 09171 Glenn Gudino M.D. [id number] Result Comment: Joi mated GFR was calculated using the 2020 CKD-EPI creatinine equation. Performed By: #### 4 6126 ####[facility] [address] [place] [address] 65692 Glenn Gudino M.D. [id number] Glucose [Mass/Vol] 122 mg/dL High 65-99 [facility] Comment on above: Order Comment: [facility] has implemented the eGFR calculation approach that does not have a coefficient for race that conforms to the NKF-ASN Task Force Recommendations. Performed By: #### 4 6178 ####[facility] [address] [place] [address] Glenn Gudino M.D. [id number] Performed By: #### 4 6126 ####[facility] [address] [place], [place] [address] Glenn Gudino M.D. [id number] HCO3 (Bld) [Moles/Vol] 13 mmol/L Low 21-32 [facility] Comment on above: Order Comment: [facility] has implemented the eGFR calculation approach that does not have a coefficient for race that conforms to the NKF-ASN Task Force Recommendations. Performed By: #### 4 6124 ####[facility] [address] [place] [address] Glenn Gudino M.D. [id number] Performed By: #### 4 6126 ####[facility] [address] [place] [address] Glenn Gudino M.D. [id number] Potassium [Moles/Vol] 5.1 mmol/L Normal 3.5-5.1 [facility] Comment on above: Order Comment: [facility] has implemented the eGFR calculation approach that does not have a coefficient for race that conforms to the NKF-ASN Task Force Recommendations. Result Comment: Slig htly Hemolyzed Performed By: #### 4 6124 ####[facility] [address] [place] [address] Glenn Gudino M.D. [id number] Performed By: #### 4 6126 ####[facility] [address] [place], [place] [address] Glenn Gudino M.D. [id number] Sodium [Moles/Vol] 139 mmol/L Normal 135-145 [facility] Comment on above: Order Comment: [facility] has implemented the eGFR calculation approach that does not have a coefficient for race that conforms to the NKF-ASN Task Force Recommendations. Performed By: #### 4 6124 ####[facility] [address] [place] [address] Glenn Gudino M.D. [id number] Performed By: #### 4 6126 ####[facility] [address] [place] [address] Glenn Gudino M.D. [id number] Urea nitrogen [Mass/Vol] 25 mg/dL Normal 8-25 [facility] Comment on above: Order Comment: [facility] has implemented the eGFR calculation approach that does not have a coefficient for race that conforms to the NKF-ASN Task Force Recommendations. Performed By: #### 4 6124 ####[facility] [address] [place] [address] Glenn Gudino M.D. [id number] Performed By: #### 4 6126 ####[facility] [address] [place], [place] [address] Glenn Gudino M.D. [id number] Urea nitrogen/Creatinine [Mass ratio] 16.2 mg/mg Normal 10.0-20.0 [facility] Comment on above: Order Comment: [facility] has implemented the eGFR calculation approach that does not have a coefficient for race that conforms to the NKF-ASN Task Force Recommendations. Performed By: #### 4 6124 ####[facility] [address] [place], [place] [address] Glenn Gudino M.D. [id number] Performed By: #### 4 6126 ####[facility] [address] [place], [place] [address] Glenn Gudino M.D. [id number] CALCIUM, IONIZEDon 4 CALCIUM IONIZED 4.5 mg/dL Normal 4.5-5.3 [facility] Comment on above: Performed By: #### 4 5190 ####[facility] [address] [place], [place] [address] Glenn Gudino M.D. [id number] CBCon 01-24-2024 AUTO NRBC 0.0 % Normal [facility] Comment on above: Performed By: #### 4 [id number] ####[facility] [address] [place], [place] [address] Glenn Gudino M.D. [id number] AUTO NRBC ABS COUNT 0.00 K/mcL Normal 0.00-0.00 [facility] Comment on above: Performed By: #### 4 [id number] ####[facility] [address] [place] [address] Glenn Gudino M.D. [id number] Erythrocyte distribution width (RBC) [Ratio] 16.2 % High 11.6-14.8 [facility] Comment on above: Performed By: #### 4 [id number] ####[facility] [address] [place], [place] [address] Glenn Gudnio M.D. [id number] Hematocrit (Bld) [Volume fraction] 32.4 % Low 36.0-46.0 [facility] Comment on above: Performed By: #### 4 [id number] ####[facility] [address] [place], [place] [address] Glenn Gudino M.D. [id number] Hemoglobin (Bld) [Mass/Vol] 10.5 g/dL Low 12.0-16.0 [facility] Comment on above: Performed By: #### 4 [id number] ####[facility] [address] [place], [place] [address] Glenn Gudino M.D. [id number] MCH (RBC) [Entitic mass] 29.2 pg Normal 26.0-34.0 [facility] Comment on above: Performed By: #### 4 6018 ####[facility] [address] [place] [address] 71309 Glenn Gudino M.D. [id number] MCV (RBC) [Entitic vol] 90.0 fL Normal 80.0-100.0 [facility] Comment on above: Performed By: #### 4 [id number] ####[facility] [address] [place] [address] Glenn Gudino M.D. [id number] MEAN CORPUSCULAR HEMOGLOBIN CONC 32.4 g/dL Normal 31.0-37.0 [facility] Comment on above: Performed By: #### 4 [id number] ####[facility] [address] [place] [address] Glenn Gudino M.D. [id number] Platelet mean volume (Bld) [Entitic vol] 9.8 fL Normal 9.4-12.4 [facility] Comment on above: Performed By: #### 4 [id number] ####[facility] [address] [place], [place] [address] Glenn Gudino M.D. [id number] Platelets (Bld) [#/Vol] 68 10*3/uL Low 150-400 [facility] Comment on above: Result Comment: Zuleima pheral smear reviewed manually Performed By: #### 4 [id number] ####[facility] [address] [place], [place] [address] Glenn Gudino M.D. [id number] RBC (Bld) [#/Vol] 3.60 10*6/uL Low 4.00-5.20 [facility] Comment on above: Performed By: #### 4 [id number] ####[facility] [address] [place], [place] [address] Glenn Gudino M.D. [id number] WBC (Bld) [#/Vol] 9.35 10*3/uL Normal 4.50-11.00 [facility] Comment on above: Result Comment: Neut rophilia with Left Shift Confirmed. Performed By: #### 4 [id number] ####[facility] [address] [place], [place] [address] Glenn Gudino M.D. [id number] AUTO NRBC 0.0 % Normal [facility] Comment on above: Performed By: #### 4 [id number] ####[facility] [address] [place] [address] Glenn Gudino M.D. [id number] AUTO NRBC ABS COUNT 0.00 K/mcL Normal 0.00-0.00 [facility] Comment on above: Performed By: #### 4 [id number] ####[facility] [address] [place] [address] Glenn Gudino M.D. [id number] Erythrocyte distribution width (RBC) [Ratio] 17.1 % High 11.6-14.8 [facility] Comment on above: Performed By: #### 4 [id number] ####[facility] [address] [place] [address] Glenn Gudino M.D. [id number] Hematocrit (Bld) [Volume fraction] 38.0 % Normal 36.0-46.0 [facility] Comment on above: Result Comment: Resu lts checked Performed By: #### 4 [id number] ####[facility] [address] [place] [address] Glenn Gudino M.D. [id number] Hemoglobin (Bld) [Mass/Vol] 12.3 g/dL Normal 12.0-16.0 [facility] Comment on above: Result Comment: Resu lts checked Performed By: #### 4 [id number] ####[facility] [address] [place], [place] [address] Glenn Gudino M.D. [id number] MCH (RBC) [Entitic mass] 28.0 pg Normal 26.0-34.0 [facility] Comment on above: Performed By: #### 4 [id number] ####[facility] [address] [place] [address] 04080 Glenn Gudino M.D. [id number] MCV (RBC) [Entitic vol] 86.4 fL Normal 80.0-100.0 [facility] Comment on above: Performed By: #### 4 [id number] ####[facility] [address] [place], [place] [address] Glenn Gudino M.D. [id number] MEAN CORPUSCULAR HEMOGLOBIN CONC 32.4 g/dL Normal 31.0-37.0 [facility] Comment on above: Performed By: #### 4 [id number] ####[facility] [address] [place] [address] Glenn Gudino M.D. [id number] Platelet mean volume (Bld) [Entitic vol] 9.3 fL Low 9.4-12.4 [facility] Comment on above: Performed By: #### 4 [id number] ####[facility] [address] [place] [address] 82610 Glenn Gudino M.D. [id number] Platelets (Bld) [#/Vol] 201 10*3/uL Normal 150-400 [facility] Comment on above: Performed By: #### 4 [id number] ####[facility] [address] [place], [place] [address] Glenn Gudino M.D. [id number] RBC (Bld) [#/Vol] 4.40 10*6/uL Normal 4.00-5.20 [facility] Comment on above: Performed By: #### 4 [id number] ####[facility] [address] [place], [place] [address] Glenn Gudino M.D. [id number] WBC (Bld) [#/Vol] 6.12 10*3/uL Normal 4.50-11.00 [facility] Comment on above: Performed By: #### 4 [id number] ####[facility] [address] [place], [place] [address] Glenn Gudino M.D. [id number] CITRATED TEG ([facility] ONLY)on 01-24-2024 (CFF-MA) CITRATED FUNCTIONAL FIBRINOGEN - [place] 12.3 mm Low 15.0-32.0 [facility] Comment on above: Performed By: #### 4 8962 ####[facility] [address] [place] [address] Glenn Gudino M.D. [id number] (CK-LY30) CITRATED KAOLIN - LYSIS 30 MIN AFTER MA 0.0 % Normal 0.0-2.6 [facility] Comment on above: Performed By: #### 4 8962 ####[facility] [address] [place] [address] Glenn Gudino M.D. [id number] (CK-R) CITRATED KAOLIN - REACTION TIME 6.7 min Normal 4.6-9.1 [facility] Comment on above: Performed By: #### 4 8962 ####[facility] [address] [place] [address] Glenn Gudino M.D. [id number] (SEVERITY OF ILLNESS COORDINATOR-MA) CITRATED RAPID TEG - [place] 41.8 mm Low 52.0-70.0 [facility] Comment on above: Performed By: #### 4 8962 ####[facility] [address] [place], [place] [address] Glenn Gudino M.D. [id number] COMPREHENSIVE METABOLIC PANE Magdaleno 01-24-2024 Albumin [Mass/Vol] 1.1 g/dL Low 3.2-5.2 [facility] Comment on above: Order Comment: [facility] has implemented the eGFR calculation approach that does not have a coefficient for race that conforms to the NKF-ASN Task Force Recommendations. Performed By: #### 4 6103 ####[facility] [address] [place] [address] Glenn Gudino M.D. [id number] ALP [Catalytic activity/Vol] 23 U/L Low 40-150 [facility] Comment on above: Order Comment: [facility] has implemented the eGFR calculation approach that does not have a coefficient for race that conforms to the NKF-ASN Task Force Recommendations. Performed By: #### 4 6126 ####[facility] [address] [place], [place] [address] Glenn Gudino M.D. [id number] ALT [Catalytic activity/Vol] 10 U/L Normal 0-35 U/L [facility] Comment on above: Order Comment: [facility] has implemented the eGFR calculation approach that does not have a coefficient for race that conforms to the NKF-ASN Task Force Recommendations. Performed By: #### 4 6126 ####[facility] [address] [place] [address] Glenn Gudino M.D. [id number] AST [Catalytic activity/Vol] 27 U/L Normal 0-35 U/L [facility] Comment on above: Order Comment: [facility] has implemented the eGFR calculation approach that does not have a coefficient for race that conforms to the NKF-ASN Task Force Recommendations. Result Comment: Slig htly Hemolyzed Performed By: #### 4 6126 ####[facility] [address] [place], [place] [address] Glenn Gudino M.D. [id number] BILIRUBIN TOTAL < Normal 0.0-1.3 [facility] Comment on above: Order Comment: [facility] has implemented the eGFR calculation approach that does not have a coefficient for race that conforms to the NKF-ASN Task Force Recommendations. Performed By: #### 4 6126 ####[facility] [address] [place], [place] [address] Glenn Gudino M.D. [id number] Protein [Mass/Vol] 2.5 g/dL Low 6.0-8.0 [facility] Comment on above: Order Comment: [facility] has implemented the eGFR calculation approach that does not have a coefficient for race that conforms to the NKF-ASN Task Force Recommendations. Performed By: #### 4 6126 ####[facility] [address] [place], [place] [address] Glenn Gudino M.D. [id number] Albumin [Mass/Vol] 2.9 g/dL Low 3.2-5.2 [facility] Comment on above: Order Comment: [facility] has implemented the eGFR calculation approach that does not have a coefficient for race that conforms to the NKF-ASN Task Force Recommendations. Performed By: #### 4 6126 ####[facility] [address] [place], [place] [address] Glenn Gudino M.D. [id number] ALP [Catalytic activity/Vol] 67 U/L Normal 40-150 [facility] Comment on above: Order Comment: [facility] has implemented the eGFR calculation approach that does not have a coefficient for race that conforms to the NKF-ASN Task Force Recommendations. Performed By: #### 4 6126 ####[facility] [address] [place], [place] [address] Glenn Gudino M.D. [id number] ALT [Catalytic activity/Vol] 11 U/L Normal 0-35 U/L [facility] Comment on above: Order Comment: [facility] has implemented the eGFR calculation approach that does not have a coefficient for race that conforms to the NKF-ASN Task Force Recommendations. Performed By: #### 4 6126 ####[facility] [address] [place], [place] [address] Glenn Gudino M.D. [id number] Anion gap [Moles/Vol] 15 mmol/L Normal 10-20 [facility] Comment on above: Order Comment: [facility] has implemented the eGFR calculation approach that does not have a coefficient for race that conforms to the NKF-ASN Task Force Recommendations. Performed By: #### 4 6126 ####[facility] [address] [place] [address] 836[address] Glenn Gudino M.D. [id number] AST [Catalytic activity/Vol] 23 U/L Normal 0-35 U/L [facility] Comment on above: Order Comment: [facility] has implemented the eGFR calculation approach that does not have a coefficient for race that conforms to the NKF-ASN Task Force Recommendations. Performed By: #### 4 6126 ####[facility] [address] [place], [place] [address] Glenn Gudino M.D. [id number] Bilirubin [Mass/Vol] 0.6 mg/dL Normal 0.0-1.3 [facility] Comment on above: Order Comment: [facility] has implemented the eGFR calculation approach that does not have a coefficient for race that conforms to the NKF-ASN Task Force Recommendations. Performed By: #### 4 6126 ####[facility] [address] [place] [address] Glenn Gudino M.D. [id number] Calcium [Mass/Vol] 8.1 mg/dL Low 8.4-10.2 [facility] Comment on above: Order Comment: [facility] has implemented the eGFR calculation approach that does not have a coefficient for race that conforms to the NKF-ASN Task Force Recommendations. Performed By: #### 4 6126 ####[facility] [address] [place] [address] Glenn Gudino M.D. [id number] Chloride [Moles/Vol] 102 mmol/L Normal 98-108 [facility] Comment on above: Order Comment: [facility] has implemented the eGFR calculation approach that does not have a coefficient for race that conforms to the NKF-ASN Task Force Recommendations. Performed By: #### 4 6126 ####[facility] [address] [place] [address]456 Glenn Gudino M.D. [id number] Creatinine [Mass/Vol] 1.88 mg/dL High 0.60-1.10 [facility] Comment on above: Order Comment: [facility] has implemented the eGFR calculation approach that does not have a coefficient for race that conforms to the NKF-ASN Task Force Recommendations. Performed By: #### 4 6126 ####[facility] [address] [place] [address] 38617 Glenn Gudino M.D. [id number] EGFR 30 mL/min/1.73 m2 Low >=60 [facility] Comment on above: Order Comment: [facility] has implemented the eGFR calculation approach that does not have a coefficient for race that conforms to the NKF-ASN Task Force Recommendations. Result Comment: Joi mated GFR was calculated using the 2020 CKD-EPI creatinine equation. Performed By: #### 4 6126 ####[facility] [address] [place] [address] 29773 Glenn Gudino M.D. [id number] Glucose [Mass/Vol] 83 mg/dL Normal 65-99 [facility] Comment on above: Order Comment: [facility] has implemented the eGFR calculation approach that does not have a coefficient for race that conforms to the NKF-ASN Task Force Recommendations. Performed By: #### 4 6126 ####[facility] [address] [place] [address] Glenn Gudino M.D. [id number] HCO3 (Bld) [Moles/Vol] 20 mmol/L Low 21-32 [facility] Comment on above: Order Comment: [facility] has implemented the eGFR calculation approach that does not have a coefficient for race that conforms to the NKF-ASN Task Force Recommendations. Performed By: #### 4 6126 ####[facility] [address] [place] [address] 21185 Glenn Gudino M.D. [id number] Potassium [Moles/Vol] 4.5 mmol/L Normal 3.5-5.1 [facility] Comment on above: Order Comment: [facility] has implemented the eGFR calculation approach that does not have a coefficient for race that conforms to the NKF-ASN Task Force Recommendations. Performed By: #### 4 6126 ####[facility] [address] [place] [address] 16359 Glenn Gudino M.D. [id number] Protein [Mass/Vol] 6.7 g/dL Normal 6.0-8.0 [facility] Comment on above: Order Comment: [facility] has implemented the eGFR calculation approach that does not have a coefficient for race that conforms to the NKF-ASN Task Force Recommendations. Performed By: #### 4 6126 ####[facility] [address] [place] [address] 38386 Glenn Gudino M.D. [id number] Sodium [Moles/Vol] 132 mmol/L Low 135-145 [facility] Comment on above: Order Comment: [facility] has implemented the eGFR calculation approach that does not have a coefficient for race that conforms to the NKF-ASN Task Force Recommendations. Performed By: #### 4 6126 ####[facility] [address] [place] [address] 42762 Glenn Gudino M.D. [id number] Urea nitrogen [Mass/Vol] 33 mg/dL High 8-25 [facility] Comment on above: Order Comment: [facility] has implemented the eGFR calculation approach that does not have a coefficient for race that conforms to the NKF-ASN Task Force Recommendations. Performed By: #### 4 6126 ####[facility] [address] [place] [address] 35838 Glenn Gudino M.D. [id number] Urea nitrogen/Creatinine [Mass ratio] 17.6 mg/mg Normal 10.0-20.0 [facility] Comment on above: Order Comment: [facility] has implemented the eGFR calculation approach that does not have a coefficient for race that conforms to the NKF-ASN Task Force Recommendations. Performed By: #### 4 6126 ####[facility] [address] [place] [address] Glenn Gudino M.D. [id number] CONSULTon 01-24-2024 CONSULT Normal [facility] ELUTIONARC-WAAon 01-24-2024 ELUTIONARC-WAA Normal [facility] Comment on above: Performed By: #### E LUARC_WAA ####[facility] [address] [place] [address] Nurys Oneill MD [id number] RM[facility] FIBRINOGENon 01-24-2024 FIBRINOGEN LEVEL 302 mg/dL Normal 224-483 [facility] Comment on above: Performed By: #### 4 5616 ####[facility] [address] [place] [address] Glenn Gudino M.D. [id number] LACTIC ACID, PLASMAon 2023 LACTIC ACID, PLASMA 5.3 mmol/L Off scale high 0.6-2.0 [facility] Comment on above: Performed By: #### 4 6053 ####[facility] [address] [place] [address] Glenn Gudino M.D. [id number] MAGNESIUM LEVELon 01-24-2024 Magnesium [Mass/Vol] 1.3 mg/dL Low 1.6-2.4 [facility] Comment on above: Performed By: #### 4 6109 ####[facility] [address] [place] [address] Glenn Gudino M.D. [id number] UNDERWRITING INTERNSHIP AEROBIC AND A NAEROBIC CULTUREon 08-28-2024 UNDERWRITING INTERNSHIP AEROBIC AND ANAEROBIC CULTURE CULTURE No Growth after 5 days GRAM STAIN RESULT Many RBC Many WBC No Organisms Seen Normal [facility] Comment on above: Performed By: #### L [id number] ####[facility] [address] [place] [address] 19222 Glenn Gudino M.D. [id number] UNDERWRITING INTERNS[employer] AFB CULTUREon 01-24-2024 UND[employer] CULTURE AFB CULTURE No Growth of Acid Fast Bacilli after 8 Weeks AFB STAIN (2018) No Acid Fast Bacilli Seen Normal [facility] Comment on above: Performed By: #### L [id number] ####[facility] [address] [place] [address] 34626 Glenn Gudino M.D. [id number] UNDERWRITING INTERNSHIP FUNGUS CULTUR Tim 01-24-2024 UNDERWRITING INTERNSHIP FUNGUS CULTURE FUNGUS CULTURE No Fungus Isolated At 4 Weeks FUNGAL SMEAR No Fungal or Yeast Elements Normal [facility] Comment on above: Performed By: #### L [id number] ####[facility] [address] [place], [place] [address] Glenn Gudino M.D. [id number] OP NOTEon 01-24-2024 OP NOTE Normal [facility] OP NOTE Normal [facility] PERIPHERAL SMEAR REVIEW (KETAN HS ONLY)on 01-24-2024 SMEAR REVIEW See Comment Normal [facility] Comment on above: Result Comment: Smea r reviewed for possible immature cells. Performed By: #### C [id number] ####[facility] [address] [place] [address] 77370 Glenn Gudino M.D. [id number] PHOSPHORUSon 01-24-2024 Phosphate [Mass/Vol] 4.7 mg/dL High 2.8-4.1 [facility] Comment on above: Performed By: #### 4 6299 ####[facility] [address] [place], [place] [address] Glenn Gudino M.D. [id number] POC ABG SURG - RALSon 2023 BASE EXCESS, ARTERIAL ISTAT -11 Low -2-2 [facility] Comment on above: Order Comment: Criti cherrie result acted upon time of test. Test performed at bedside. Performed By: #### 4 8737 ####[facility] [address] [place] [address] [id number] RMHPOC Glucose [Mass/Vol] 267 mg/dL High 65-99 [facility] Comment on above: Order Comment: Criti cherrie result acted upon time of test. Test performed at bedside. Performed By: #### 4 8737 ####[facility] [address] [place] [address] [id number] RMHP[facility] HCO3 (Bld) [Moles/Vol] 14.4 mmol/L Low 22.0-26.0 [facility] Comment on above: Order Comment: Criti cherrie result acted upon time of test. Test performed at bedside. Performed By: #### 4 8737 ####[facility] [address] [place] [address] [id number] RM[facility] Hematocrit (Bld) [Volume fraction] 20 % Low 36-46 [facility] Comment on above: Order Comment: Criti cherrie result acted upon time of test. Test performed at bedside. Performed By: #### 4 8737 ####[facility] [address] [place] [address] [id number] RMHPOC Hemoglobin (Bld) [Mass/Vol] 6.8 g/dL Off scale low 12.0-16.0 [facility] Comment on above: Order Comment: Criti cherrie result acted upon time of test. Test performed at bedside. Performed By: #### 4 8737 ####[facility] [address] [place] [address] [id number] RMHPOC Oxygen saturation in Blood 100.0 % High 92.0-99.0 [facility] Comment on above: Order Comment: Criti cherrie result acted upon time of test. Test performed at bedside. Performed By: #### 4 8765 ####[facility] [address] [place] [address] [id number] RM[facility] PCO2 ARTERIAL 31.2 mm Hg Low 35.0-45.0 [facility] Comment on above: Order Comment: Criti cherrie result acted upon time of test. Test performed at bedside. Performed By: #### 4 8737 ####[facility] [address] [place] [address] [id number] RM[facility] PH ARTERIAL 7.27 Low 7.35-7.45 [facility] Comment on above: Order Comment: Criti cherrie result acted upon time of test. Test performed at bedside. Performed By: #### 4 8737 ####[facility] [address] [place] [address] [id number] RM[facility] PO2 ARTERIAL 464 mm Hg High 80-100 [facility] Comment on above: Order Comment: Criti cherrie result acted upon time of test. Test performed at bedside. Performed By: #### 4 8737 ####[facility] [address] [place] [address] [id number] RM[facility] POC IONIZED CALCIUM 3.5 mg/dL Low 4.5-5.3 [facility] Comment on above: Order Comment: Criti cherrie result acted upon time of test. Test performed at bedside. Performed By: #### 4 8737 ####[facility] [address] [place] [address] [id number] RMHPOC Potassium [Moles/Vol] 3.9 mmol/L Normal 3.5-5.1 [facility] Comment on above: Order Comment: Criti cherrie result acted upon time of test. Test performed at bedside. Performed By: #### 4 8737 ####[facility] [address] [place] [address] [id number] RM[facility] Sodium [Moles/Vol] 140 mmol/L Normal 135-145 [facility] Comment on above: Order Comment: Criti cherrie result acted upon time of test. Test performed at bedside. Performed By: #### 4 3744 ####[facility] [address] [place] [address] [id number] RM[facility] BASE EXCESS, ARTERIAL ISTAT -12 Low -2-2 [facility] Comment on above: Performed By: #### 4 7037 ####[facility] [address] [place] [address] [id number] RM[facility] Glucose [Mass/Vol] 164 mg/dL High 65-99 [facility] Comment on above: Performed By: #### 4 6137 ####[facility] [address] [place] [address] [id number] [facility] HCO3 (Bld) [Moles/Vol] 14.8 mmol/L Low 22.0-26.0 [facility] Comment on above: Performed By: #### 4 3037 ####[facility] [address] [place] [address] [id number] RM[facility] Hematocrit (Bld) [Volume fraction] 32 % Low 36-46 [facility] Comment on above: Performed By: #### 4 2237 ####[facility] [address] [place] [address] [id number] [facility] Hemoglobin (Bld) [Mass/Vol] 10.9 g/dL Low 12.0-16.0 [facility] Comment on above: Performed By: #### 4 3737 ####[facility] [address] [place] [address] [id number] [facility] Oxygen saturation in Blood 100.0 % High 92.0-99.0 [facility] Comment on above: Performed By: #### 4 2537 ####[facility] [address] [place] [address] [id number] [facility] PCO2 ARTERIAL 36.0 mm Hg Normal 35.0-45.0 [facility] Comment on above: Performed By: #### 4 3733 ####[facility] [address] [place] [address] [id number] [facility] PH ARTERIAL 7.22 Low 7.35-7.45 [facility] Comment on above: Performed By: #### 4 8737 ####[facility] [address] [place] [address] [id number] RM[facility] PO2 ARTERIAL 444 mm Hg High 80-100 [facility] Comment on above: Performed By: #### 4 8737 ####[facility] [address] [place] [address] [id number] RM[facility] POC IONIZED CALCIUM 3.7 mg/dL Low 4.5-5.3 [facility] Comment on above: Performed By: #### 4 8737 ####[facility] [address] [place] [address] [id number] RM[facility] Potassium [Moles/Vol] 4.6 mmol/L Normal 3.5-5.1 [facility] Comment on above: Performed By: #### 4 8737 ####[facility] [address] [place] [address] [id number] RM[facility] Sodium [Moles/Vol] 135 mmol/L Normal 135-145 [facility] Comment on above: Performed By: #### 4 8737 ####[facility] [address] [place] [address] [id number] RM[facility] POC ACTIVATED CLOTTING TIME - [facility] 01-24-2024 POC ACT KAOLIN 274 seconds Normal [facility] Comment on above: Performed By: #### 4 8122 ####[facility] [address] [place] [address] [id number] [facility] POC ARTERIAL BLOOD GAS PANEL -PULM - [facility] 01-24-2024 BASE EXCESS, ARTERIAL -11.8 Low -2.0-2.0 [facility] Comment on above: Order Comment: Criti cherrie result acted upon time of test. Test performed at bedside. Performed By: #### 4 8716 ####[facility] [address] [place] [address] [id number] RM[facility] CALCIUM IONIZED 4.4 mg/dL Low 4.5-5.3 [facility] Comment on above: Order Comment: Criti cherrie result acted upon time of test. Test performed at bedside. Performed By: #### 4 8716 ####[facility] [address] [place] [address] [id number] [facility] CARBOXYHEMOGLOBIN 1.5 % of total Hb Normal <=1.5 [facility] Comment on above: Order Comment: Criti cherrie result acted upon time of test. Test performed at bedside. Result Comment: Refe rence Ranges:Suburban Non-smokers: <1.5%Smokers: 1.5-5.0%Heavy Smokers: 5.0-9.0% Performed By: #### 4 8716 ####[facility] [address] [place] [address] [id number] RM[facility] Chloride [Moles/Vol] 115 mmol/L High 98-108 [facility] Comment on above: Order Comment: Criti cherrie result acted upon time of test. Test performed at bedside. Performed By: #### 4 8716 ####[facility] [address] [place] [address] [id number] RM[facility] FIO2 30 Normal [facility] Comment on above: Order Comment: Criti cherrie result acted upon time of test. Test performed at bedside. Performed By: #### 4 8716 ####[facility] [address] [place] [address] [id number] RM[facility] Glucose [Mass/Vol] 120 mg/dL High 65-99 [facility] Comment on above: Order Comment: Criti cherrie result acted upon time of test. Test performed at bedside. Performed By: #### 4 8716 ####[facility] [address] [place] [address] [id number] [facility] HCO3 (Bld) [Moles/Vol] 13.9 mmol/L Low 22.0-26.0 [facility] Comment on above: Order Comment: Criti cherrie result acted upon time of test. Test performed at bedside. Performed By: #### 4 8716 ####[facility] [address] [place] [address] [id number] [facility] Hematocrit (Bld) [Volume fraction] 34.5 % Low 36.0-46.0 [facility] Comment on above: Order Comment: Criti cherrie result acted upon time of test. Test performed at bedside. Performed By: #### 4 8716 ####[facility] [address] [place] [address] [id number] RM[facility] Hemoglobin (Bld) [Mass/Vol] 11.3 g/dL Low 12.0-16.0 [facility] Comment on above: Order Comment: Criti cherrie result acted upon time of test. Test performed at bedside. Performed By: #### 4 8742 ####[facility] [address] [place] [address] [id number] [facility] LACTIC ACID, WHOLE BLOOD 5.2 mmol/L Off scale high 0.6-2.0 [facility] Comment on above: Order Comment: Criti cherrie result acted upon time of test. Test performed at bedside. Performed By: #### 4 5616 ####[facility] [address] [place] [address] [id number] RM[facility] METHEMOGLOBIN < Normal 0.0-2.0 [facility] Comment on above: Order Comment: Criti cherrie result acted upon time of test. Test performed at bedside. Performed By: #### 4 8713 ####[facility] [address] [place] [address] [id number] RM[facility] O2HB 92.3 % Low 94.0-98.0 [facility] Comment on above: Order Comment: Criti cherrie result acted upon time of test. Test performed at bedside. Performed By: #### 4 9573 ####[facility] [address] [place] [address] [id number] RM[facility] Oxygen saturation in Blood 94.1 % Normal 92.0-99.0 [facility] Comment on above: Order Comment: Criti cherrie result acted upon time of test. Test performed at bedside. Performed By: #### 4 5597 ####[facility] [address] [place] [address] [id number] RM[facility] PCO2 ARTERIAL 30.3 mm Hg Low 35.0-45.0 [facility] Comment on above: Order Comment: Criti cherrie result acted upon time of test. Test performed at bedside. Performed By: #### 4 8716 ####[facility] [address] [place] [address] [id number] RM[facility] PEEP RAD [address] [facility] Comment on above: Order Comment: Criti cherrie result acted upon time of test. Test performed at bedside. Performed By: #### 4 8716 ####[facility] [address] [place] [address] [id number] [facility] PH ARTERIAL 7.27 Low 7.35-7.45 [facility] Comment on above: Order Comment: Criti cherrie result acted upon time of test. Test performed at bedside. Performed By: #### 4 8716 ####[facility] [address] [place] [address] [id number] [facility] PO2 ARTERIAL 76 mm Hg Low 80-100 [facility] Comment on above: Order Comment: Criti cherrie result acted upon time of test. Test performed at bedside. Performed By: #### 4 8716 ####[facility] [address] [place] [address] [id number] [facility] Potassium [Moles/Vol] 4.6 mmol/L Normal 3.5-5.1 [facility] Comment on above: Order Comment: Criti cherrie result acted upon time of test. Test performed at bedside. Performed By: #### 4 8716 ####[facility] [address] [place] [address] [id number] RM[facility] RESP RATE RAD [address] [facility] Comment on above: Order Comment: Criti cherrie result acted upon time of test. Test performed at bedside. Performed By: #### 4 8716 ####[facility] [address] [place] [address] [id number] RM[facility] RESULT NOTIFICATION Critical results giv en to:45138 Normal [facility] Comment on above: Order Comment: Criti cherrie result acted upon time of test. Test performed at bedside. Performed By: #### 4 8716 ####[facility] [address] [place] [address] [id number] RM[facility] Sodium [Moles/Vol] 134 mmol/L Low 135-145 [facility] Comment on above: Order Comment: Criti cherrie result acted upon time of test. Test performed at bedside. Performed By: #### 4 8716 ####[facility] [address] [place] [address] [id number] [facility] Glucose [Mass/Vol] 154 mg/dL High [facility] Comment on above: Performed By: #### 4 6932 ####[facility] [address] [place] [address] [id number] [facility] Glucose [Mass/Vol] 122 mg/dL High [facility] Comment on above: Performed By: #### 4 6932 ####[facility] [address] [place] [address] [id number] [facility] POTASSIUM LEVELon 01-24-2024 Potassium [Moles/Vol] 4.7 mmol/L Normal 3.5-5.1 [facility] Comment on above: Performed By: #### 4 6351 ####[facility] [address] [place] [address] Glenn Gudino M.D. [id number] PT/INRon 01-24-2024 INR Coag (PPP) [Relative time] 1.4 {INR} High 0.8-1.1 [facility] Comment on above: Order Comment: Jennifer retana the induction phase of oral anticoagulation, the INR may not reflect the anticoagulation status of the patient. Therapeutic ranges for INR's are:Most clinical situations: INR 2.0-3.0Mechanical Prosthetic Valve: INR 2.5-3.5Critical: INR >5.0 Performed By: #### 4 6305 ####[facility] [address] [place] [address] Glenn Gudino M.D. [id number] PT Coag (PPP) [Time] 17.5 s High 11.8-14.3 [facility] Comment on above: Order Comment: Durin g the induction phase of oral anticoagulation, the INR may not reflect the anticoagulation status of the patient. Therapeutic ranges for INR's are:Most clinical situations: INR 2.0-3.0Mechanical Prosthetic Valve: INR 2.5-3.5Critical: INR >5.0 Performed By: #### 4 6391 ####[facility] [address] [place] [address] Glenn Gudino M.D. [id number] INR Coag (PPP) [Relative time] 1.6 {INR} High 0.8-1.1 [facility] Comment on above: Order Comment: Duralfonzo g the induction phase of oral anticoagulation, the INR may not reflect the anticoagulation status of the patient. Therapeutic ranges for INR's are:Most clinical situations: INR 2.0-3.0Mechanical Prosthetic Valve: INR 2.5-3.5Critical: INR >5.0 Result Comment: Resu lts checked. Performed By: #### 4 6391 ####[facility] [address] [place] [address] Glenn Gudino M.D. [id number] PT Coag (PPP) [Time] 19.5 s High 11.8-14.3 [facility] Comment on above: Order Comment: Jennifer retana the induction phase of oral anticoagulation, the INR may not reflect the anticoagulation status of the patient. Therapeutic ranges for INR's are:Most clinical situations: INR 2.0-3.0Mechanical Prosthetic Valve: INR 2.5-3.5Critical: INR >5.0 Result Comment: Resu lts checked. Performed By: #### 4 6391 ####[facility] [address] [place] [address] Glenn Gudino M.D. [id number] INR Coag (PPP) [Relative time] 1.1 {INR} Normal 0.8-1.1 [facility] Comment on above: Order Comment: Jennifer retana the induction phase of oral anticoagulation, the INR may not reflect the anticoagulation status of the patient. Therapeutic ranges for INR's are:Most clinical situations: INR 2.0-3.0Mechanical Prosthetic Valve: INR 2.5-3.5Critical: INR >5.0 Performed By: #### 4 6391 ####[facility] [address] [place] [address] Glenn Gudino M.D. [id number] PT Coag (PPP) [Time] 13.6 s Normal 11.8-14.3 [facility] Comment on above: Order Comment: Jennifer retana the induction phase of oral anticoagulation, the INR may not reflect the anticoagulation status of the patient. Therapeutic ranges for INR's are:Most clinical situations: INR 2.0-3.0Mechanical Prosthetic Valve: INR 2.5-3.5Critical: INR >5.0 Performed By: #### 4 6391 ####[facility] [address] [place] [address] 740[address] Glenn Gudino M.D. [id number] REFLEX LACTIC ACID, PLASMAon 01-24-2024 LACTIC ACID, PLASMA 2.0 mmol/L Normal 0.6-2.0 [facility] Comment on above: Performed By: #### L [id number] ####[facility] [address] [place] [address] 12335 Glenn Gudino M.D. [id number] TISSUE AEROBIC AND ANAEROBIC CULTUREon 01-24-2024 TISSUE AEROBIC AND ANAEROBIC CULTURE CULTURE No Growth after 5 days GRAM STAIN RESULT Many RBC Few WBC No Organisms Seen Normal [facility] Comment on above: Performed By: #### 4 4274 ####[facility] [address] [place] [address] 23115 Glenn Gudino M.D. [id number] TISSUE AFB CULTUREon 024 TISSUE AFB CULTURE AFB CULTURE No Growth of Acid Fast Bacilli after 8 Weeks AFB STAIN (2018) No Acid Fast Bacilli Seen Normal [facility] Comment on above: Performed By: #### 4 4273 ####[facility] [address] [place] [address] Glenn Gudino M.D. [id number] TISSUE FUNGUS CULTUREon 12-28 TISSUE FUNGUS CULTURE FUNGUS CULTURE No Fungus Isolated At 4 Weeks FUNGAL SMEAR No Fungal or Yeast Elements Normal [facility] Comment on above: Performed By: #### 4 4275 ####[facility] [address] [place] [address] Glenn Gudino M.D. [id number] TRANSFUSION CONSULTon 2023 TRANSFUSION CONSULT [facility] Comment on above: Performed By: #### 4 8080 ####[facility] [address] [place] [address] Glenn Gudino M.D. [id number] TRIGLYCERIDESon 01-24-2024 Triglyceride [Mass/Vol] 72 mg/dL Normal 30-150 [facility] Comment on above: Result Comment: Lucila onal Cholesterol Education Program Guidelines: TriglycerideNormal: <150 mg/dLBorderline High: 150-199 mg/dLHigh: 200-499 mg/dLVery High: greater than or equal to 500 mg/dL Performed By: #### 4 6606 ####[facility] [address] [place], [place] [address] Glenn Gudino M.D. [id number] TYPE AND SCREENon 01-24-2024 TYPE AND SCREEN ABORH: O Positive AB SCREEN: Positive EXPIRATION DATE: 01/27/2024 23:59 EST Normal [facility] Comment on above: Performed By: #### 4 6619 ####[facility] [address] [place] [address] Nurys Oneill MD [id number] RM[facility] XR ABDOMEN /KUB/FLAT PLATE/1 VIEWon 01-24-2024 XR ABDOMEN /KUB/FLAT PLATE/[address] [facility] Comment on above: Order Comment: Injur y/Trauma or Illness?:Illness/OtherHow long have you had these symptoms (acute/chronic)?:UnknownReason for exam?:NG/OG tube placementHistory of cancer?:uSurgeries, chemotherapy, or radiation?:uType of Exam?:UnknownAdditional signs and symptoms?:. XR CHEST PA/APon 01-24-2024 XR CHEST PA/AP [facility] Comment on above: Order Comment: Injur y/Trauma or Illness?:Illness/OtherHow long have you had these symptoms (acute/chronic)?:UnknownReason for exam?:ettHistory of cancer?:uSurgeries, chemotherapy, or radiation?:uType of Exam?:InitialAdditional signs and symptoms?:no XR CHEST PA/AP [facility] Comment on above: Order Comment: Injur y/Trauma or Illness?:Illness/OtherHow long have you had these symptoms (acute/chronic)?:UnknownReason for exam?:intubatedHistory of cancer?:uSurgeries, chemotherapy, or radiation?:uType of Exam?:UnknownAdditional signs and symptoms?:. ANTIBODY IDENTIFICATION-Con 01-23-2024 ANTIBODY IDENTIFICATION-C [facility] Comment on above: Performed By: #### 4 6427_Anti-C ####[facility] [address] [address] Nurys Oneill MD [id number] [facility] ANTIBODY IDENTIFICATION-FYAo n 01-23-2024 ANTIBODY IDENTIFICATION-FYA [facility] Comment on above: Performed By: #### 4 6427_Anti-Fya ####[facility] [address] [address] Nurys Oneill MD [id number] [facility] ANTIBODY IDENTIFICATION-WAAo n 01-23-2024 ANTIBODY IDENTIFICATION-WAA [facility] Comment on above: Performed By: #### 4 6427_WAA ####[facility] [address] [address] Nurys Oneill MD [id number] [facility] ANTIBODY IDENTIFICATION-WAA Normal [facility] Comment on above: Performed By: #### 4 6427_WAA ####[facility] [address] [place] [address] Nurys Oneill MD [id number] [facility] C PATIENT ANTIGEN TYPINGon 0 01-23-2024 C PATIENT ANTIGEN TYPING Negative Normal [facility] Comment on above: Performed By: #### P -C ####[facility] [address] [place] [address] Nurys Oneill MD [id number] [facility] CBCon 01-23-2024 AUTO NRBC 0.0 % Normal [facility] Comment on above: Performed By: #### 4 [id number] ####[facility] [address] [place] [address] Glenn Gudino M.D. [id number] AUTO NRBC ABS COUNT 0.00 K/mcL Normal 0.00-0.00 [facility] Comment on above: Performed By: #### 4 [id number] ####[facility] [address] [place] [address] Glenn Gudino M.D. [id number] Erythrocyte distribution width (RBC) [Ratio] 18.8 % High 11.6-14.8 [facility] Comment on above: Performed By: #### 4 [id number] ####[facility] [address] [place] [address] Glenn Gudino M.D. [id number] Hematocrit (Bld) [Volume fraction] 27.3 % Low 36.0-46.0 [facility] Comment on above: Performed By: #### 4 [id number] ####[facility] [address] [place] [address] Glenn Gudino M.D. [id number] Hemoglobin (Bld) [Mass/Vol] 8.7 g/dL Low 12.0-16.0 [facility] Comment on above: Performed By: #### 4 [id number] ####[facility] [address] [place], [place] [address] Glenn Gudino M.D. [id number] MCH (RBC) [Entitic mass] 27.7 pg Normal 26.0-34.0 [facility] Comment on above: Performed By: #### 4 [id number] ####[facility] [address] [place] [address] Glenn Gudino M.D. [id number] MCV (RBC) [Entitic vol] 86.9 fL Normal 80.0-100.0 [facility] Comment on above: Performed By: #### 4 [id number] ####[facility] [address] [place] [address] Glenn Gudino M.D. [id number] MEAN CORPUSCULAR HEMOGLOBIN CONC 31.9 g/dL Normal 31.0-37.0 [facility] Comment on above: Performed By: #### 4 [id number] ####[facility] [address] [place], [place] [address] Glenn Gudino M.D. [id number] Platelet mean volume (Bld) [Entitic vol] 9.0 fL Low 9.4-12.4 [facility] Comment on above: Performed By: #### 4 [id number] ####[facility] [address] [place], [place] [address] Glenn Gudino M.D. [id number] Platelets (Bld) [#/Vol] 209 10*3/uL Normal 150-400 [facility] Comment on above: Performed By: #### 4 [id number] ####[facility] [address] [place], [place] [address] Glenn Gudino M.D. [id number] RBC (Bld) [#/Vol] 3.14 10*6/uL Low 4.00-5.20 [facility] Comment on above: Performed By: #### 4 [id number] ####[facility] [address] [place] [address] Glenn Gudino M.D. [id number] WBC (Bld) [#/Vol] 7.25 10*3/uL Normal 4.50-11.00 [facility] Comment on above: Performed By: #### 4 [id number] ####[facility] [address] [place] [address] Glenn Gudino M.D. [id number] COMPLEMENT DIRECT ANTIGLOBUL IN TESTon 01-23-2024 COMPLEMENT DIRECT ANTIGLOBULIN TEST Negative Normal [facility] Comment on above: Performed By: #### 4 6847 ####[facility] [address] [place] [address] Nurys Oneill MD [id number] [facility] COMPLEMENT DIRECT ANTIGLOBULIN TEST Negative Normal [facility] Comment on above: Performed By: #### 4 6847 ####[facility] [address] [place] [address] Nurys Oneill MD [id number] [facility] COMPREHENSIVE METABOLIC PANE Magdaleno 01-23-2024 Albumin [Mass/Vol] 2.7 g/dL Low 3.2-5.2 [facility] Comment on above: Order Comment: [facility] has implemented the eGFR calculation approach that does not have a coefficient for race that conforms to the NKF-ASN Task Force Recommendations. Performed By: #### 4 6126 ####[facility] [address] [place] [address] Glenn Gudino M.D. [id number] ALP [Catalytic activity/Vol] 74 U/L Normal 40-150 [facility] Comment on above: Order Comment: [facility] has implemented the eGFR calculation approach that does not have a coefficient for race that conforms to the NKF-ASN Task Force Recommendations. Performed By: #### 4 6140 ####[facility] [address] [place], [place] [address] Glenn Gudino M.D. [id number] ALT [Catalytic activity/Vol] 10 U/L Normal 0-35 U/L [facility] Comment on above: Order Comment: [facility] has implemented the eGFR calculation approach that does not have a coefficient for race that conforms to the NKF-ASN Task Force Recommendations. Performed By: #### 4 6126 ####[facility] [address] [place] [address] Glenn Gudino M.D. [id number] Anion gap [Moles/Vol] 15 mmol/L Normal 10-20 [facility] Comment on above: Order Comment: [facility] has implemented the eGFR calculation approach that does not have a coefficient for race that conforms to the NKF-ASN Task Force Recommendations. Performed By: #### 4 6126 ####[facility] [address] [place], [place] [address] Glenn Gudino M.D. [id number] AST [Catalytic activity/Vol] 23 U/L Normal 0-35 U/L [facility] Comment on above: Order Comment: [facility] has implemented the eGFR calculation approach that does not have a coefficient for race that conforms to the NKF-ASN Task Force Recommendations. Performed By: #### 4 6126 ####[facility] [address] [place], [place] [address] Glenn Gudino M.D. [id number] Bilirubin [Mass/Vol] 0.2 mg/dL Normal 0.0-1.3 [facility] Comment on above: Order Comment: [facility] has implemented the eGFR calculation approach that does not have a coefficient for race that conforms to the NKF-ASN Task Force Recommendations. Performed By: #### 4 6126 ####[facility] [address] [place] [address] Glenn Gudino M.D. [id number] Calcium [Mass/Vol] 8.2 mg/dL Low 8.4-10.2 [facility] Comment on above: Order Comment: [facility] has implemented the eGFR calculation approach that does not have a coefficient for race that conforms to the NKF-ASN Task Force Recommendations. Performed By: #### 4 6126 ####[facility] [address] [place] [address] Glenn Gudino M.D. [id number] Chloride [Moles/Vol] 101 mmol/L Normal 98-108 [facility] Comment on above: Order Comment: [facility] has implemented the eGFR calculation approach that does not have a coefficient for race that conforms to the NKF-ASN Task Force Recommendations. Performed By: #### 4 6126 ####[facility] [address] [place] [address] Glenn Gudino M.D. [id number] Creatinine [Mass/Vol] 1.99 mg/dL High 0.60-1.10 [facility] Comment on above: Order Comment: [facility] has implemented the eGFR calculation approach that does not have a coefficient for race that conforms to the NKF-ASN Task Force Recommendations. Performed By: #### 4 6126 ####[facility] [address] [place] [address] Glenn Gudino M.D. [id number] EGFR 28 mL/min/1.73 m2 Low >=60 [facility] Comment on above: Order Comment: [facility] has implemented the eGFR calculation approach that does not have a coefficient for race that conforms to the NKF-ASN Task Force Recommendations. Result Comment: Joi mated GFR was calculated using the 2020 CKD-EPI creatinine equation. Performed By: #### 4 6126 ####[facility] [address] [place] [address] Glenn Gudino M.D. [id number] Glucose [Mass/Vol] 85 mg/dL Normal 65-99 [facility] Comment on above: Order Comment: [facility] has implemented the eGFR calculation approach that does not have a coefficient for race that conforms to the NKF-ASN Task Force Recommendations. Performed By: #### 4 6126 ####[facility] [address] [place] [address] Glenn Gudino M.D. [id number] HCO3 (Bld) [Moles/Vol] 19 mmol/L Low 21-32 [facility] Comment on above: Order Comment: [facility] has implemented the eGFR calculation approach that does not have a coefficient for race that conforms to the NKF-ASN Task Force Recommendations. Performed By: #### 4 6126 ####[facility] [address] [place], [place] [address] Glenn Gudino M.D. [id number] Potassium [Moles/Vol] 4.6 mmol/L Normal 3.5-5.1 [facility] Comment on above: Order Comment: [facility] has implemented the eGFR calculation approach that does not have a coefficient for race that conforms to the NKF-ASN Task Force Recommendations. Performed By: #### 4 6126 ####[facility] [address] [place], [place] [address] Glenn Gudino M.D. [id number] Protein [Mass/Vol] 6.5 g/dL Normal 6.0-8.0 [facility] Comment on above: Order Comment: [facility] has implemented the eGFR calculation approach that does not have a coefficient for race that conforms to the NKF-ASN Task Force Recommendations. Performed By: #### 4 6126 ####[facility] [address] [place] [address] Glenn Gudino M.D. [id number] Sodium [Moles/Vol] 130 mmol/L Low 135-145 [facility] Comment on above: Order Comment: [facility] has implemented the eGFR calculation approach that does not have a coefficient for race that conforms to the NKF-ASN Task Force Recommendations. Performed By: #### 4 6126 ####[facility] [address] [place] [address] Glenn Gudino M.D. [id number] Urea nitrogen [Mass/Vol] 36 mg/dL High 8-25 [facility] Comment on above: Order Comment: [facility] has implemented the eGFR calculation approach that does not have a coefficient for race that conforms to the NKF-ASN Task Force Recommendations. Performed By: #### 4 6126 ####[facility] [address] [place] [address] Glenn Gudino M.D. [id number] Urea nitrogen/Creatinine [Mass ratio] 18.1 mg/mg Normal 10.0-20.0 [facility] Comment on above: Order Comment: [facility] has implemented the eGFR calculation approach that does not have a coefficient for race that conforms to the NKF-ASN Task Force Recommendations. Performed By: #### 4 6126 ####[facility] [address] [place] [address] Glenn uGdino M.D. [id number] ELUTION-WAAon 01-23-2024 ELUTION-WAA [facility] Comment on above: Performed By: #### 4 6426_WAA ####[facility] [address] [place] [address] Nurys Oneill MD [id number] RMHTS GIGGon 01-23-[address] [facility] Comment on above: Performed By: #### G IGG ####[facility] [address] [place] [address] Nurys Oneill MD [id number] RMHTS GIGG Positive [facility] Comment on above: Performed By: #### G IGG ####[facility] [address] [place] [address] Nurys Oneill MD [id number] RMHTS LITTLE C PATIENT ANTIGEN TYP ING (STX)on 01-23-2024 LAUREN Rose PATIENT ANTIGEN TYPING (STX) Positive Normal [facility] Comment on above: Performed By: #### P -Lauren sparks ####[facility] [address] [place] [address] Nurys Oneill MD [id number] RMHT[facility] PT/INRon 01-23-2024 INR Coag (PPP) [Relative time] 1.0 {INR} Normal 0.8-1.1 [facility] Comment on above: Order Comment: Malcomin g the induction phase of oral anticoagulation, the INR may not reflect the anticoagulation status of the patient. Therapeutic ranges for INR's are:Most clinical situations: INR 2.0-3.0Mechanical Prosthetic Valve: INR 2.5-3.5Critical: INR >5.0 Performed By: #### 4 6391 ####[facility] [address] [place] [address] Glenn Gudino M.D. [id number] PT Coag (PPP) [Time] 13.3 s Normal 11.8-14.3 [facility] Comment on above: Order Comment: Jennifer g the induction phase of oral anticoagulation, the INR may not reflect the anticoagulation status of the patient. Therapeutic ranges for INR's are:Most clinical situations: INR 2.0-3.0Mechanical Prosthetic Valve: INR 2.5-3.5Critical: INR >5.0 Performed By: #### 4 6391 ####[facility] [address] [place] [address] Glenn Gudino M.D. [id number] TYPE AND SCREENon 01-23-2024 TYPE AND SCREEN ABORH: O Positive AB SCREEN: Positive EXPIRATION DATE: 01/26/2024 23:59 EST Normal [facility] Comment on above: Performed By: #### 4 6619 ####[facility] [address] [place] [address] Nurys Oneill MD [id number] [facility] TYPE AND SCREEN ABORH: O Positive AB SCREEN: Positive EXPIRATION DATE: 01/26/2024 23:59 EST Normal [facility] Comment on above: Performed By: #### 4 [id number] ####[facility] [address] [place] [address] Nurys Oneill MD [id number] RMHTS APTT HEPARIN COVERAGEon 12-28 aPTT Coag (Bld) [Time] 113 s High 23-34 [facility] Comment on above: Order Comment: Thera peutic range for APTT's is 68 - 104 seconds Performed By: #### 4 6848 ####[facility] [address] [place] [address] Glenn Gudino M.D. [id number] aPTT Coag (Bld) [Time] 100 s High 23-34 [facility] Comment on above: Order Comment: Thera peutic range for APTT's is 68 - 104 secondsResults checked. Performed By: #### 4 6848 ####[facility] [address] [place], [place] [address] Glenn Gudino M.D. [id number] CBCon 01-22-2024 AUTO NRBC 0.0 % Normal [facility] Comment on above: Order Comment: While on heparin Performed By: #### 4 [id number] ####[facility] [address] [place], [place] [address] Glenn Gudino M.D. [id number] AUTO NRBC ABS COUNT 0.00 K/mcL Normal 0.00-0.00 [facility] Comment on above: Order Comment: While on heparin Performed By: #### 4 [id number] ####[facility] [address] [place], [place] [address] Glenn Gudino M.D. [id number] Erythrocyte distribution width (RBC) [Ratio] 18.7 % High 11.6-14.8 [facility] Comment on above: Order Comment: While on heparin Performed By: #### 4 [id number] ####[facility] [address] [place], [place] [address] Glenn Gudino M.D. [id number] Hematocrit (Bld) [Volume fraction] 29.7 % Low 36.0-46.0 [facility] Comment on above: Order Comment: While on heparin Performed By: #### 4 [id number] ####[facility] [address] [place] [address] Glenn Gudino M.D. [id number] Hemoglobin (Bld) [Mass/Vol] 9.3 g/dL Low 12.0-16.0 [facility] Comment on above: Order Comment: While on heparin Performed By: #### 4 [id number] ####[facility] [address] [place] [address] Glenn Gudino M.D. [id number] MCH (RBC) [Entitic mass] 27.4 pg Normal 26.0-34.0 [facility] Comment on above: Order Comment: While on heparin Performed By: #### 4 [id number] ####[facility] [address] [place], [place] [address] Glenn Gudino M.D. [id number] MCV (RBC) [Entitic vol] 87.6 fL Normal 80.0-100.0 [facility] Comment on above: Order Comment: While on heparin Performed By: #### 4 [id number] ####[facility] [address] [place], [place] [address] Glenn Gudino M.D. [id number] MEAN CORPUSCULAR HEMOGLOBIN CONC 31.3 g/dL Normal 31.0-37.0 [facility] Comment on above: Order Comment: While on heparin Performed By: #### 4 [id number] ####[facility] [address] [place], [place] [address] Glenn Gudino M.D. [id number] Platelet mean volume (Bld) [Entitic vol] 9.0 fL Low 9.4-12.4 [facility] Comment on above: Order Comment: While on heparin Performed By: #### 4 [id number] ####[facility] [address] [place] [address] Glenn Gudino M.D. [id number] Platelets (Bld) [#/Vol] 192 10*3/uL Normal 150-400 [facility] Comment on above: Order Comment: While on heparin Performed By: #### 4 [id number] ####[facility] [address] [place], [place] [address] Glenn Gudino M.D. [id number] RBC (Bld) [#/Vol] 3.39 10*6/uL Low 4.00-5.20 [facility] Comment on above: Order Comment: While on heparin Performed By: #### 4 [id number] ####[facility] [address] [place], [place] [address] Glenn Gudino M.D. [id number] WBC (Bld) [#/Vol] 5.85 10*3/uL Normal 4.50-11.00 [facility] Comment on above: Order Comment: While on heparin Performed By: #### 4 [id number] ####[facility] [address] [place] [address] Glenn Gudino M.D. [id number] COMPREHENSIVE METABOLIC PANE Magdaleno 01-22-2024 Albumin [Mass/Vol] 2.8 g/dL Low 3.2-5.2 [facility] Comment on above: Order Comment: [facility] has implemented the eGFR calculation approach that does not have a coefficient for race that conforms to the NKF-ASN Task Force Recommendations. Performed By: #### 4 6126 ####[facility] [address] [place], [place] [address] Glenn Gudino M.D. [id number] ALP [Catalytic activity/Vol] 75 U/L Normal 40-150 [facility] Comment on above: Order Comment: [facility] has implemented the eGFR calculation approach that does not have a coefficient for race that conforms to the NKF-ASN Task Force Recommendations. Performed By: #### 4 6126 ####[facility] [address] [place] [address] Glenn Gudino M.D. [id number] ALT [Catalytic activity/Vol] 10 U/L Normal 0-35 U/L [facility] Comment on above: Order Comment: [facility] has implemented the eGFR calculation approach that does not have a coefficient for race that conforms to the NKF-ASN Task Force Recommendations. Performed By: #### 4 6126 ####[facility] [address] [place] [address] Glenn Gudino M.D. [id number] Anion gap [Moles/Vol] 16 mmol/L Normal 10-20 [facility] Comment on above: Order Comment: [facility] has implemented the eGFR calculation approach that does not have a coefficient for race that conforms to the NKF-ASN Task Force Recommendations. Performed By: #### 4 6126 ####[facility] [address] [place] [address] Glenn Gudino M.D. [id number] AST [Catalytic activity/Vol] 19 U/L Normal 0-35 U/L [facility] Comment on above: Order Comment: [facility] has implemented the eGFR calculation approach that does not have a coefficient for race that conforms to the NKF-ASN Task Force Recommendations. Performed By: #### 4 6126 ####[facility] [address] [place] [address] Glenn Gudino M.D. [id number] Bilirubin [Mass/Vol] 0.2 mg/dL Normal 0.0-1.3 [facility] Comment on above: Order Comment: [facility] has implemented the eGFR calculation approach that does not have a coefficient for race that conforms to the NKF-ASN Task Force Recommendations. Performed By: #### 4 6126 ####[facility] [address] [place] [address] Glenn Gudino M.D. [id number] Calcium [Mass/Vol] 8.1 mg/dL Low 8.4-10.2 [facility] Comment on above: Order Comment: [facility] has implemented the eGFR calculation approach that does not have a coefficient for race that conforms to the NKF-ASN Task Force Recommendations. Performed By: #### 4 6126 ####[facility] [address] [place] [address] Glenn Gudino M.D. [id number] Chloride [Moles/Vol] 103 mmol/L Normal 98-108 [facility] Comment on above: Order Comment: [facility] has implemented the eGFR calculation approach that does not have a coefficient for race that conforms to the NKF-ASN Task Force Recommendations. Performed By: #### 4 6126 ####[facility] [address] [place] [address] Glenn Gudino M.D. [id number] Creatinine [Mass/Vol] 2.18 mg/dL High 0.60-1.10 [facility] Comment on above: Order Comment: [facility] has implemented the eGFR calculation approach that does not have a coefficient for race that conforms to the NKF-ASN Task Force Recommendations. Performed By: #### 4 6126 ####[facility] [address] [place], [place] [address] Glenn Gudino M.D. [id number] EGFR 25 mL/min/1.73 m2 Low >=60 [facility] Comment on above: Order Comment: [facility] has implemented the eGFR calculation approach that does not have a coefficient for race that conforms to the NKF-ASN Task Force Recommendations. Result Comment: Joi mated GFR was calculated using the 2020 CKD-EPI creatinine equation. Performed By: #### 4 6126 ####[facility] [address] [place] [address] Glenn Gudino M.D. [id number] Glucose [Mass/Vol] 82 mg/dL Normal 65-99 [facility] Comment on above: Order Comment: [facility] has implemented the eGFR calculation approach that does not have a coefficient for race that conforms to the NKF-ASN Task Force Recommendations. Performed By: #### 4 6126 ####[facility] [address] [place], [place] [address] Glenn Gudino M.D. [id number] HCO3 (Bld) [Moles/Vol] 21 mmol/L Normal 21-32 [facility] Comment on above: Order Comment: [facility] [facility] has implemented the eGFR calculation approach that does not have a coefficient for race that conforms to the NKF-ASN Task Force Recommendations. Performed By: #### 4 6126 ####[facility] [address] [place], [place] [address] Glenn Gudino M.D. [id number] Potassium [Moles/Vol] 4.6 mmol/L Normal 3.5-5.1 [facility] Comment on above: Order Comment: [facility] has implemented the eGFR calculation approach that does not have a coefficient for race that conforms to the NKF-ASN Task Force Recommendations. Performed By: #### 4 6126 ####[facility] [address] [place] [address] 85653 Glenn Gudino M.D. [id number] Protein [Mass/Vol] 6.7 g/dL Normal 6.0-8.0 [facility] Comment on above: Order Comment: [facility] has implemented the eGFR calculation approach that does not have a coefficient for race that conforms to the NKF-ASN Task Force Recommendations. Performed By: #### 4 6126 ####[facility] [address] [place] [address] 38645 Glenn Gudino M.D. [id number] Sodium [Moles/Vol] 135 mmol/L Normal 135-145 [facility] Comment on above: Order Comment: [facility] has implemented the eGFR calculation approach that does not have a coefficient for race that conforms to the NKF-ASN Task Force Recommendations. Performed By: #### 4 6126 ####[facility] [address] [place], [place] [address] Glenn Gudino M.D. [id number] Urea nitrogen [Mass/Vol] 38 mg/dL High 8- [facility] Comment on above: Order Comment: [facility] has implemented the eGFR calculation approach that does not have a coefficient for race that conforms to the NKF-ASN Task Force Recommendations. Performed By: #### 4 6126 ####[facility] [address] [place] [address] 00959 Glenn Gudino M.D. [id number] Urea nitrogen/Creatinine [Mass ratio] 17.4 mg/mg Normal 10.0-20.0 [facility] Comment on above: Order Comment: [facility] has implemented the eGFR calculation approach that does not have a coefficient for race that conforms to the NKF-ASN Task Force Recommendations. Performed By: #### 4 6126 ####[facility] [address] [place] [address] 79370 Glenn Gudino M.D. [id number] CONSULTon 01-22-2024 CONSULT See consult note 12/28 11/19. AUTHENTICATED BY MARY SUBRAMANIAN ON 01/23/2024 07:09:20 Normal [facility] CONSULT Normal [facility] PT/INRon 01-22-2024 INR Coag (PPP) [Relative time] 1.0 {INR} Normal 0.8-1.1 [facility] Comment on above: Order Comment: Jennifer retana the induction phase of oral anticoagulation, the INR may not reflect the anticoagulation status of the patient. Therapeutic ranges for INR's are:Most clinical situations: INR 2.0-3.0Mechanical Prosthetic Valve: INR 2.5-3.5Critical: INR >5.0 Performed By: #### 4 6391 ####[facility] [address] [place], [place] [address] Glenn Gudino M.D. [id number] PT Coag (PPP) [Time] 13.1 s Normal 11.8-14.3 [facility] Comment on above: Order Comment: Jennifer retana the induction phase of oral anticoagulation, the INR may not reflect the anticoagulation status of the patient. Therapeutic ranges for INR's are:Most clinical situations: INR 2.0-3.0Mechanical Prosthetic Valve: INR 2.5-3.5Critical: INR >5.0 Performed By: #### 4 6391 ####[facility] [address] [place], [place] [address] Glenn Gudino M.D. [id number] APTT HEPARIN COVERAGEon 12-28 aPTT Coag (Bld) [Time] 66 s High 23-34 [facility] Comment on above: Order Comment: Thera peutic range for APTT's is 68 - 104 seconds Result Comment: Resu lts checked. Performed By: #### 4 6848 ####[facility] [address] [place] [address] Glenn Gudino M.D. [id number] aPTT Coag (Bld) [Time] 84 s High 23-34 [facility] Comment on above: Order Comment: Thera peutic range for APTT's is 68 - 104 secondsResults checked. Performed By: #### 4 6848 ####[facility] [address] [place], [place] [address] Glenn Gudino M.D. [id number] aPTT Coag (Bld) [Time] 63 s High 23-34 [facility] Comment on above: Order Comment: Thera peutic range for APTT's is 68 - 104 seconds Performed By: #### 4 6867 ####[facility] [address] [place] [address] 98758 Glenn Gudino M.D. [id number] RENAL FUNCTION PANELon 01-20 Albumin [Mass/Vol] 2.7 g/dL Low 3.2-5.2 [facility] Comment on above: Order Comment: [facility] has implemented the eGFR calculation approach that does not have a coefficient for race that conforms to the NKF-ASN Task Force Recommendations. Performed By: #### 4 6449 ####[facility] [address] [place] [address] 10117 Glenn Gudino M.D. [id number] Anion gap [Moles/Vol] 15 mmol/L Normal 10-20 [facility] Comment on above: Order Comment: [facility] has implemented the eGFR calculation approach that does not have a coefficient for race that conforms to the NKF-ASN Task Force Recommendations. Performed By: #### 4 6449 ####[facility] [address] [place], [place] [address] Glenn Gudino M.D. [id number] Calcium [Mass/Vol] 8.1 mg/dL Low 8.4-10.2 [facility] Comment on above: Order Comment: [facility] has implemented the eGFR calculation approach that does not have a coefficient for race that conforms to the NKF-ASN Task Force Recommendations. Performed By: #### 4 6449 ####[facility] [address] [place] [address] 65286 Glenn Gudino M.D. [id number] Chloride [Moles/Vol] 102 mmol/L Normal 98-108 [facility] Comment on above: Order Comment: [facility] has implemented the eGFR calculation approach that does not have a coefficient for race that conforms to the NKF-ASN Task Force Recommendations. Performed By: #### 4 6449 ####[facility] [address] [place], [place] [address] Glenn Gudino M.D. [id number] Creatinine [Mass/Vol] 1.96 mg/dL High 0.60-1.10 [facility] Comment on above: Order Comment: [facility] has implemented the eGFR calculation approach that does not have a coefficient for race that conforms to the NKF-ASN Task Force Recommendations. Performed By: #### 4 6449 ####[facility] [address] [place] [address] 25372 Glenn Gudino M.D. [id number] EGFR 29 mL/min/1.73 m2 Low >=60 [facility] Comment on above: Order Comment: [facility] has implemented the eGFR calculation approach that does not have a coefficient for race that conforms to the NKF-ASN Task Force Recommendations. Result Comment: Joi mated GFR was calculated using the 2020 CKD-EPI creatinine equation. Performed By: #### 4 6449 ####[facility] [address] [place] [address] 41378 Glenn Gudino M.D. [id number] Glucose [Mass/Vol] 85 mg/dL Normal 65-99 [facility] Comment on above: Order Comment: [facility] has implemented the eGFR calculation approach that does not have a coefficient for race that conforms to the NKF-ASN Task Force Recommendations. Performed By: #### 4 6449 ####[facility] [address] [place] [address] 43366 Glenn Gudino M.D. [id number] HCO3 (Bld) [Moles/Vol] 21 mmol/L Normal 21-32 [facility] Comment on above: Order Comment: [facility] has implemented the eGFR calculation approach that does not have a coefficient for race that conforms to the NKF-ASN Task Force Recommendations. Performed By: #### 4 6449 ####[facility] [address] [place] [address] 39466 Glenn Gudino M.D. [id number] Phosphate [Mass/Vol] 3.9 mg/dL Normal 2.8-4.1 [facility] Comment on above: Order Comment: [facility] has implemented the eGFR calculation approach that does not have a coefficient for race that conforms to the NKF-ASN Task Force Recommendations. Performed By: #### 4 6449 ####[facility] [address] [place] [address] 57288 Glenn Gudino M.D. [id number] Potassium [Moles/Vol] 4.2 mmol/L Normal 3.5-5.1 [facility] Comment on above: Order Comment: [facility] has implemented the eGFR calculation approach that does not have a coefficient for race that conforms to the NKF-ASN Task Force Recommendations. Performed By: #### 4 6449 ####[facility] [address] [place] [address] 82997 Glenn Gudino M.D. [id number] Sodium [Moles/Vol] 134 mmol/L Low 135-145 [facility] Comment on above: Order Comment: [facility] has implemented the eGFR calculation approach that does not have a coefficient for race that conforms to the NKF-ASN Task Force Recommendations. Performed By: #### 4 6449 ####[facility] [address] [place], [place] [address] Glenn Gudino M.D. [id number] Urea nitrogen [Mass/Vol] 34 mg/dL High 8-25 [facility] Comment on above: Order Comment: [facility] has implemented the eGFR calculation approach that does not have a coefficient for race that conforms to the NKF-ASN Task Force Recommendations. Performed By: #### 4 6449 ####[facility] [address] [place] [address] 76469 Glenn Gudino M.D. [id number] Urea nitrogen/Creatinine [Mass ratio] 17.3 mg/mg Normal 10.0-20.0 [facility] Comment on above: Order Comment: [facility] has implemented the eGFR calculation approach that does not have a coefficient for race that conforms to the NKF-ASN Task Force Recommendations. Performed By: #### 4 6449 ####[facility] [address] [place], [place] [address] Glenn Gudino M.D. [id number] APTT HEPARIN COVERAGEon 12-28 aPTT Coag (Bld) [Time] 53 s High 23-34 [facility] Comment on above: Order Comment: Thera peutic range for APTT's is 68 - 104 seconds Performed By: #### 4 6848 ####[facility] [address] [place] [address] Glenn Gudino M.D. [id number] CBCon 01-20-2024 AUTO NRBC 0.0 % Normal [facility] Comment on above: Performed By: #### 4 [id number] ####[facility] [address] [place] [address] Glenn Gudino M.D. [id number] AUTO NRBC ABS COUNT 0.00 K/mcL Normal 0.00-0.00 [facility] Comment on above: Performed By: #### 4 [id number] ####[facility] [address] [place], [place] [address] Glenn Gudino M.D. [id number] Erythrocyte distribution width (RBC) [Ratio] 18.9 % High 11.6-14.8 [facility] Comment on above: Performed By: #### 4 [id number] ####[facility] [address] [place], [place] [address] Glenn Gudino M.D. [id number] Hematocrit (Bld) [Volume fraction] 26.1 % Low 36.0-46.0 [facility] Comment on above: Performed By: #### 4 [id number] ####[facility] [address] [place], [place] [address] Glenn Gudino M.D. [id number] Hemoglobin (Bld) [Mass/Vol] 8.1 g/dL Low 12.0-16.0 [facility] Comment on above: Performed By: #### 4 [id number] ####[facility] [address] [place] [address] Glenn Gudino M.D. [id number] MCH (RBC) [Entitic mass] 27.3 pg Normal 26.0-34.0 [facility] Comment on above: Performed By: #### 4 [id number] ####[facility] [address] [place] [address] Glenn Gudino M.D. [id number] MCV (RBC) [Entitic vol] 87.9 fL Normal 80.0-100.0 [facility] Comment on above: Performed By: #### 4 [id number] ####[facility] [address] [place] [address] Glenn Gudino M.D. [id number] MEAN CORPUSCULAR HEMOGLOBIN CONC 31.0 g/dL Normal 31.0-37.0 [facility] Comment on above: Performed By: #### 4 [id number] ####[facility] [address] [place], [place] [address] Glenn Gudino M.D. [id number] Platelet mean volume (Bld) [Entitic vol] 10.1 fL Normal 9.4-12.4 [facility] Comment on above: Performed By: #### 4 [id number] ####[facility] [address] [place] [address] Glenn Gudino M.D. [id number] Platelets (Bld) [#/Vol] 160 10*3/uL Normal 150-400 [facility] Comment on above: Performed By: #### 4 [id number] ####[facility] [address] [place] [address] Glenn Gudino M.D. [id number] RBC (Bld) [#/Vol] 2.97 10*6/uL Low 4.00-5.20 [facility] Comment on above: Performed By: #### 4 [id number] ####[facility] [address] [place] [address] 02722 Glenn Gudino M.D. [id number] WBC (Bld) [#/Vol] 4.60 10*3/uL Normal 4.50-11.00 [facility] Comment on above: Performed By: #### 4 [id number] ####[facility] [address] [place] [address] 05654 Glenn Gudino M.D. [id number] CONSULTon 01-20-2024 CONSULT Normal [facility] HEPATIC FUNCTION PANELon Albumin [Mass/Vol] 2.7 g/dL Low 3.2-5.2 [facility] Comment on above: Performed By: #### 4 5866 ####[facility] [address] [place] [address] 55549 Glenn Gudino M.D. [id number] Order Comment: [facility] has implemented the eGFR calculation approach that does not have a coefficient for race that conforms to the NKF-ASN Task Force Recommendations. Performed By: #### 4 6449 ####[facility] [address] [place] [address] 38490 Glenn Gudino M.D. [id number] ALP [Catalytic activity/Vol] 79 U/L Normal 40-150 [facility] Comment on above: Performed By: #### 4 5866 ####[facility] [address] [place] [address] 68543 Glenn Gudino M.D. [id number] ALT [Catalytic activity/Vol] 13 U/L Normal 0-35 U/L [facility] Comment on above: Performed By: #### 4 5866 ####[facility] [address] [place] [address] 43097 Glenn Gudino M.D. [id number] AST [Catalytic activity/Vol] 26 U/L Normal 0-35 U/L [facility] Comment on above: Performed By: #### 4 5866 ####[facility] [address] [place], [place] [address] Glenn Gudino M.D. [id number] Bilirubin [Mass/Vol] 0.2 mg/dL Normal 0.0-1.3 [facility] Comment on above: Performed By: #### 4 5866 ####[facility] [address] [place], [place] [address] Glenn Gudino M.D. [id number] BILIRUBIN, DIRECT < Normal 0.0-0.4 [facility] Comment on above: Performed By: #### 4 5866 ####[facility] [address] [place], [place] [address] Glenn Gudino M.D. [id number] Protein [Mass/Vol] 6.1 g/dL Normal 6.0-8.0 [facility] Comment on above: Performed By: #### 4 5866 ####[facility] [address] [place], [place] [address] Glenn Gudino M.D. [id number] PT/INRon 01-20-2024 INR Coag (PPP) [Relative time] 1.0 {INR} Normal 0.8-1.1 [facility] Comment on above: Order Comment: Jennifer retana the induction phase of oral anticoagulation, the INR may not reflect the anticoagulation status of the patient. Therapeutic ranges for INR's are:Most clinical situations: INR 2.0-3.0Mechanical Prosthetic Valve: INR 2.5-3.5Critical: INR >5.0 Performed By: #### 4 6391 ####[facility] [address] [place], [place] [address] Glenn Gudino M.D. [id number] PT Coag (PPP) [Time] 13.2 s Normal 11.8-14.3 [facility] Comment on above: Order Comment: Jennifer retana the induction phase of oral anticoagulation, the INR may not reflect the anticoagulation status of the patient. Therapeutic ranges for INR's are:Most clinical situations: INR 2.0-3.0Mechanical Prosthetic Valve: INR 2.5-3.5Critical: INR >5.0 Performed By: #### 4 6391 ####[facility] [address] [place] [address] Glenn Gudino M.D. [id number] RENAL FUNCTION PANELon 01-19 Anion gap [Moles/Vol] 15 mmol/L Normal 10-20 [facility] Comment on above: Order Comment: [facility] has implemented the eGFR calculation approach that does not have a coefficient for race that conforms to the NKF-ASN Task Force Recommendations. Performed By: #### 4 6449 ####[facility] [address] [place] [address] Glenn Gudino M.D. [id number] Calcium [Mass/Vol] 8.2 mg/dL Low 8.4-10.2 [facility] Comment on above: Order Comment: [facility] has implemented the eGFR calculation approach that does not have a coefficient for race that conforms to the NKF-ASN Task Force Recommendations. Performed By: #### 4 6449 ####[facility] [address] [place] [address] Glenn Gudino M.D. [id number] Chloride [Moles/Vol] 104 mmol/L Normal 98-108 [facility] Comment on above: Order Comment: [facility] has implemented the eGFR calculation approach that does not have a coefficient for race that conforms to the NKF-ASN Task Force Recommendations. Performed By: #### 4 6449 ####[facility] [address] [place] [address] Glenn Gudino M.D. [id number] Creatinine [Mass/Vol] 1.96 mg/dL High 0.60-1.10 [facility] Comment on above: Order Comment: [facility] has implemented the eGFR calculation approach that does not have a coefficient for race that conforms to the NKF-ASN Task Force Recommendations. Performed By: #### 4 6449 ####[facility] [address] [place] [address] 83606 Glenn Gudino M.D. [id number] EGFR 29 mL/min/1.73 m2 Low >=60 [facility] Comment on above: Order Comment: [facility] has implemented the eGFR calculation approach that does not have a coefficient for race that conforms to the NKF-ASN Task Force Recommendations. Result Comment: Joi mated GFR was calculated using the 2020 CKD-EPI creatinine equation. Performed By: #### 4 6449 ####[facility] [address] [place], [place] [address] Glenn Gudino M.D. [id number] Glucose [Mass/Vol] 80 mg/dL Normal 65-99 [facility] Comment on above: Order Comment: [facility] has implemented the eGFR calculation approach that does not have a coefficient for race that conforms to the NKF-ASN Task Force Recommendations. Performed By: #### 4 6449 ####[facility] [address] [place] [address] 24457 Glenn Gudino M.D. [id number] HCO3 (Bld) [Moles/Vol] 20 mmol/L Low 21-32 [facility] Comment on above: Order Comment: [facility] has implemented the eGFR calculation approach that does not have a coefficient for race that conforms to the NKF-ASN Task Force Recommendations. Performed By: #### 4 6449 ####[facility] [address] [place] [address] 12742 Glenn Gudino M.D. [id number] Phosphate [Mass/Vol] 3.9 mg/dL Normal 2.8-4.1 [facility] Comment on above: Order Comment: [facility] has implemented the eGFR calculation approach that does not have a coefficient for race that conforms to the NKF-ASN Task Force Recommendations. Performed By: #### 4 6449 ####[facility] [address] [place] [address] 87001 Glenn Gudino M.D. [id number] Potassium [Moles/Vol] 4.2 mmol/L Normal 3.5-5.1 [facility] Comment on above: Order Comment: [facility] has implemented the eGFR calculation approach that does not have a coefficient for race that conforms to the NKF-ASN Task Force Recommendations. Performed By: #### 4 6449 ####[facility] [address] [place] [address] 8[address]12 Glenn Gudino M.D. [id number] Sodium [Moles/Vol] 135 mmol/L Normal 135-145 [facility] Comment on above: Order Comment: [facility] has implemented the eGFR calculation approach that does not have a coefficient for race that conforms to the NKF-ASN Task Force Recommendations. Performed By: #### 4 6449 ####[facility] [address] [place] [address] 25636 Glenn Gudino M.D. [id number] Urea nitrogen [Mass/Vol] 32 mg/dL High 8-25 [facility] Comment on above: Order Comment: [facility] has implemented the eGFR calculation approach that does not have a coefficient for race that conforms to the NKF-ASN Task Force Recommendations. Performed By: #### 4 6449 ####[facility] [address] [place] [address] 51830 Glenn Gudino M.D. [id number] Urea nitrogen/Creatinine [Mass ratio] 16.3 mg/mg Normal 10.0-20.0 [facility] Comment on above: Order Comment: [facility] has implemented the eGFR calculation approach that does not have a coefficient for race that conforms to the NKF-ASN Task Force Recommendations. Performed By: #### 4 6449 ####[facility] [address] [place], [place] [address] Glenn Gudino M.D. [id number] URINALYSISon 01-20-2024 AMORPHOUS CRYSTALS Few Abnormal None Seen , Rare [facility] Comment on above: Order Comment: Micro scopic examination is performed on all urinalysis samples and only positive findings are reported. The test for blood on the chemical analytic portion of urinalysis may also be positive due to hemoglobinuria and myoglobinuria and if red blood cells are present they are quantified by microscopic examination. Performed By: #### 4 6625 ####[facility] [address] [place] [address] Glenn Gudino M.D. [id number] BACTERIA, URINE Few Abnormal None Seen [facility] Comment on above: Order Comment: Micro scopic examination is performed on all urinalysis samples and only positive findings are reported. The test for blood on the chemical analytic portion of urinalysis may also be positive due to hemoglobinuria and myoglobinuria and if red blood cells are present they are quantified by microscopic examination. Performed By: #### 4 6625 ####[facility] [address] [place] [address] Glenn Gudino M.D. [id number] BILIRUBIN, URINE Negative Normal Negative [facility] Comment on above: Order Comment: Micro scopic examination is performed on all urinalysis samples and only positive findings are reported. The test for blood on the chemical analytic portion of urinalysis may also be positive due to hemoglobinuria and myoglobinuria and if red blood cells are present they are quantified by microscopic examination. Performed By: #### 4 6625 ####[facility] [address] [place] [address] Glenn Gudino M.D. [id number] BLOOD, URINE Negative Normal Negative [facility] Comment on above: Order Comment: Micro scopic examination is performed on all urinalysis samples and only positive findings are reported. The test for blood on the chemical analytic portion of urinalysis may also be positive due to hemoglobinuria and myoglobinuria and if red blood cells are present they are quantified by microscopic examination. Performed By: #### 4 [id number] ####[facility] [address] [place] [address] Glenn Gudino M.D. [id number] Clarity (U) Cloudy Abnormal Clear [facility] Comment on above: Order Comment: Micro scopic examination is performed on all urinalysis samples and only positive findings are reported. The test for blood on the chemical analytic portion of urinalysis may also be positive due to hemoglobinuria and myoglobinuria and if red blood cells are present they are quantified by microscopic examination. Performed By: #### 4 [id number] ####[facility] [address] [place] [address] Glenn Gudino M.D. [id number] Color (U) Yellow Normal Colorless, Yellow [facility] Comment on above: Order Comment: Micro scopic examination is performed on all urinalysis samples and only positive findings are reported. The test for blood on the chemical analytic portion of urinalysis may also be positive due to hemoglobinuria and myoglobinuria and if red blood cells are present they are quantified by microscopic examination. Performed By: #### 4 [id number] ####[facility] [address] [place] [address] Glenn Gudino M.D. [id number] Glucose Ql (U) Negative Normal Negative [facility] Comment on above: Order Comment: Micro scopic examination is performed on all urinalysis samples and only positive findings are reported. The test for blood on the chemical analytic portion of urinalysis may also be positive due to hemoglobinuria and myoglobinuria and if red blood cells are present they are quantified by microscopic examination. Performed By: #### 4 [id number] ####[facility] [address] [place] [address] Glenn Gudino M.D. [id number] Ketones Ql (U) Negative Normal Negative [facility] Comment on above: Order Comment: Micro scopic examination is performed on all urinalysis samples and only positive findings are reported. The test for blood on the chemical analytic portion of urinalysis may also be positive due to hemoglobinuria and myoglobinuria and if red blood cells are present they are quantified by microscopic examination. Performed By: #### 4 [id number] ####[facility] [address] [place] [address] Glenn Gudino M.D. [id number] Leukocyte esterase Test strip Ql (U) Small Abnormal Negative [facility] Comment on above: Order Comment: Micro scopic examination is performed on all urinalysis samples and only positive findings are reported. The test for blood on the chemical analytic portion of urinalysis may also be positive due to hemoglobinuria and myoglobinuria and if red blood cells are present they are quantified by microscopic examination. Performed By: #### 4 [id number] ####[facility] [address] [place] [address] Glenn Gudino M.D. [id number] NITRITE, URINE Negative Normal Negative [facility] Comment on above: Order Comment: Micro scopic examination is performed on all urinalysis samples and only positive findings are reported. The test for blood on the chemical analytic portion of urinalysis may also be positive due to hemoglobinuria and myoglobinuria and if red blood cells are present they are quantified by microscopic examination. Performed By: #### 4 [id number] ####[facility] [address] [place] [address] Glenn Gudino M.D. [id number] pH (U) 7.5 [pH] High 5.0-7.0 [facility] Comment on above: Order Comment: Micro scopic examination is performed on all urinalysis samples and only positive findings are reported. The test for blood on the chemical analytic portion of urinalysis may also be positive due to hemoglobinuria and myoglobinuria and if red blood cells are present they are quantified by microscopic examination. Performed By: #### 4 [id number] ####[facility] [address] [place] [address] Glenn Gudino M.D. [id number] Protein (U) [Mass/Vol] 100 mg/dL Abnormal Negative Ri [facility] Comment on above: Order Comment: Micro scopic examination is performed on all urinalysis samples and only positive findings are reported. The test for blood on the chemical analytic portion of urinalysis may also be positive due to hemoglobinuria and myoglobinuria and if red blood cells are present they are quantified by microscopic examination. Performed By: #### 4 [id number] ####[facility] [address] [place], [place] [address] Glenn Gudino M.D. [id number] RBC LM.HPF (Urine sed) [#/Area] 1 /[HPF] Normal 0-3 [facility] Comment on above: Order Comment: Micro scopic examination is performed on all urinalysis samples and only positive findings are reported. The test for blood on the chemical analytic portion of urinalysis may also be positive due to hemoglobinuria and myoglobinuria and if red blood cells are present they are quantified by microscopic examination. Performed By: #### 4 [id number] ####[facility] [address] [place], [place] [address] Glenn Gudino M.D. [id number] Specific gravity (U) [Rel density] 1.018 Normal 1.005-1.02 5 [facility] Comment on above: Order Comment: Micro scopic examination is performed on all urinalysis samples and only positive findings are reported. The test for blood on the chemical analytic portion of urinalysis may also be positive due to hemoglobinuria and myoglobinuria and if red blood cells are present they are quantified by microscopic examination. Performed By: #### 4 [id number] ####[facility] [address] [place], [place] [address] Glenn Gudino M.D. [id number] SQUAMOUS EPITHELIAL 1 /hpf Normal 0-4 [facility] Comment on above: Order Comment: Micro scopic examination is performed on all urinalysis samples and only positive findings are reported. The test for blood on the chemical analytic portion of urinalysis may also be positive due to hemoglobinuria and myoglobinuria and if red blood cells are present they are quantified by microscopic examination. Performed By: #### 4 [id number] ####[facility] [address] [place] [address] Glenn Gudino M.D. [id number] UROBILINOGEN, URINE <2.0 Normal <2.0 [facility] Comment on above: Order Comment: Micro scopic examination is performed on all urinalysis samples and only positive findings are reported. The test for blood on the chemical analytic portion of urinalysis may also be positive due to hemoglobinuria and myoglobinuria and if red blood cells are present they are quantified by microscopic examination. Performed By: #### 4 [id number] ####[facility] [address] [place] [address] Glenn Gudino M.D. [id number] WBC LM.HPF (Urine sed) [#/Area] 18 /[HPF] High 0-5 [facility] Comment on above: Order Comment: Micro scopic examination is performed on all urinalysis samples and only positive findings are reported. The test for blood on the chemical analytic portion of urinalysis may also be positive due to hemoglobinuria and myoglobinuria and if red blood cells are present they are quantified by microscopic examination. Performed By: #### 4 [id number] ####[facility] [address] [place], [place] [address] Glenn Gudino M.D. [id number] US RENAL AND BLADDERon 01-19 US RENAL AND BLADDER Normal [facility] Comment on above: Order Comment: Injur y/Trauma or Illness?:Illness/OtherHow long have you had these symptoms (acute/chronic)?:UnknownReason for exam?:akiHistory of cancer?:uSurgeries, chemotherapy, or radiation?:uType of Exam?:UnknownAdditional signs and symptoms?:- H AND Ney 01-19-2024 H AND P Normal [facility] CT ANGIOGRAM CHEST ABDOMEN P ELVISon 01-09-2024 [...] has decr (more content not included)... Normal [facility] Comment on above: Order Comment: Injur [...] Date: 01/05/2024 9:06 AM Patient Status: Outpatient Steward/Stewardess Second Class: Mary Newell, DEVIN, RVS Referring Physician: SARATH REY ; Indications - AAA stent graft I71.3 - Abdominal aortic aneurysm, ruptured Procedure Description 41388 Duplex scan of aorta, inferior vena cava, [...] Prox EMMANUEL Trans Diam 1.3 cm Normal [facility] ABDOMINAL AORTIC ANEURYSM DUPLEX (AAA) Patient Info Name: SCOTT OBREGON Age: 63 years : 1960 Gender: Female Exam Date: 01/05/2024 9:06 AM Patient Status: Outpatient Steward/Stewardess Second Class: Mary Newell, DOLOREST, RVS Referring Physician: SARATH REY ; Indications - AAA stent graft I71.3 - Abdominal aortic aneurysm, ruptured Procedure Description 22770 Duplex scan of aorta, inferior vena cava, [...] on MonJan 05, 2024 11:42:09 AM EDT Normal [facility] RENAL ARTERY DUPLEX LIMIT EDon 01-05-2024 US RENAL ARTERY DUPLEX LIMITED Patient Info Name: SCOTT OBREGON Age: 63 years : 1960 Gender: Female Exam Date: 01/05/2024 9:37 AM Patient Status: Outpatient Steward/Stewardess Second Class: Mary Newell, DEVIN, EDMOND Referring Physician: SARATH REY ; Indications - left renal artery chimney N28.9 - Renal insufficiency Procedure Description 09098 Duplex scan of arterial inflow and venous [...] Rey MD, RPVI on 01/05/2024 11:58 AM [facility] RENAL ARTERY DUPLEX LIMITED Patient Info Name: SCOTT OBREGON Age: 63 years : 1960 Gender: Female Exam Date: 01/05/2024 9:37 AM Patient Status: Outpatient Steward/Stewardess Second Class: Mary Newell, DEVIN, RVS Referring Physician: SARATH REY ; Indications - left renal artery chimney N28.9 - Renal insufficiency Procedure Description 69049 Duplex scan of arterial inflow and venous [...] MonJan 05, 2024 11:59:06 AM EDT Normal [facility] External Lab PT/INRon 2023 INR Coag (PPP) [Relative time] 1.7 {INR} [facility] No Panel Informationon 01-02 [facility] [place] POCT PT/INROrdered By: Makenzie Garza on 01-03-2024 INR Coag (Bld) [Relative time] 1.7 {INR} Abnormal 0.8 - 1.1 [facility] Comment on above: 5.0 mg, all other do ses stay the same Interpretation and review of laboratory results Abnormal [facility] External Lab PT/INRon 2023 INR Coag (PPP) [Relative time] 2.1 {INR} [facility] No Panel Informationon 12-26 [facility] [place] POCT PT/INROrdered By: Antonietta Monk on 12-27-2023 INR Coag (Bld) [Relative time] 2.1 {INR} Abnormal 0.8 - 1.1 [facility] Interpretation and review of laboratory results Abnormal [facility] BASIC METABOLIC PANELon 11-27 Anion gap [Moles/Vol] 14 mmol/L Normal 10-20 [facility] Comment on above: Order Comment: Jennifer retana the induction phase of oral anticoagulation, the INR may not reflect the anticoagulation status of the patient. Therapeutic ranges for INR's are: Most clinical situations: INR 2.0-3.0 Mechanical Prosthetic Valve: INR 2.5-3.5 Critical: INR >5.0 Performed By: #### 4 [id number] #### [facility] [place] [address] Jaron Méndez M.D. [id number] Calcium [Mass/Vol] 9.0 mg/dL Normal 8.4-10.2 [facility] Comment on above: Order Comment: Jennifer retana the induction phase of oral anticoagulation, the INR may not reflect the anticoagulation status of the patient. Therapeutic ranges for INR's are: Most clinical situations: INR 2.0-3.0 Mechanical Prosthetic Valve: INR 2.5-3.5 Critical: INR >5.0 Performed By: #### 4 [id number] #### [facility] [address] [place] [address] Jaron Méndez M.D. [id number] Chloride [Moles/Vol] 98 mmol/L Normal 98-108 [facility] Comment on above: Order Comment: [facility] the induction phase of oral anticoagulation, the INR may not reflect the anticoagulation status of the patient. Therapeutic ranges for INR's are: Most clinical situations: INR 2.0-3.0 Mechanical Prosthetic Valve: INR 2.5-3.5 Critical: INR >5.0 Performed By: #### 4 [id number] #### SH [address] [address] Jaron Méndez M.D. [id number] Creatinine [Mass/Vol] 1.40 mg/dL High 0.60-1.10 [facility] Comment on above: Order Comment: Jennifer retana the induction phase of oral anticoagulation, the INR may not reflect the anticoagulation status of the patient. Therapeutic ranges for INR's are: Most clinical situations: INR 2.0-3.0 Mechanical Prosthetic Valve: INR 2.5-3.5 Critical: INR >5.0 Performed By: #### 4 [id number] #### [facility] [address] [place] [address] Jaron Méndez M.D. [id number] EGFR 43 mL/min/1.73 m2 Low >=60 [facility] Comment on above: Order Comment: Jennifer the induction phase of oral anticoagulation, the INR may not reflect the anticoagulation status of the patient. Therapeutic ranges for INR's are: Most clinical situations: INR 2.0-3.0 Mechanical Prosthetic Valve: INR 2.5-3.5 Critical: INR >5.0 Result Comment: Joi mated GFR was calculated using the 2020 CKD-EPI creatinine equation. Performed By: #### 4 [id number] #### [address] [address] Jaron Méndez M.D. [id number] Glucose [Mass/Vol] 89 mg/dL Normal 65-99 [facility] Comment on above: Order Comment: Jennifer retana the induction phase of oral anticoagulation, the INR may not reflect the anticoagulation status of the patient. Therapeutic ranges for INR's are: Most clinical situations: INR 2.0-3.0 Mechanical Prosthetic Valve: INR 2.5-3.5 Critical: INR >5.0 Performed By: #### 4 [id number] #### [place] [id number] Jaron Méndez M.D. [id number] HCO3 (Bld) [Moles/Vol] 25 mmol/L Normal 21-32 [facility] Comment on above: Order Comment: Jennifer retana the induction phase of oral anticoagulation, the INR may not reflect the anticoagulation status of the patient. Therapeutic ranges for INR's are: Most clinical situations: INR 2.0-3.0 Mechanical Prosthetic Valve: INR 2.5-3.5 Critical: INR >5.0 Performed By: #### 4 6391 #### [address] [address] Jaron Méndez M.D. [id number] Potassium [Moles/Vol] 4.5 mmol/L Normal 3.5-5.1 [facility] Comment on above: Order Comment: Jennifer g the induction phase of oral anticoagulation, the INR may not reflect the anticoagulation status of the patient. Therapeutic ranges for INR's are: Most clinical situations: INR 2.0-3.0 Mechanical Prosthetic Valve: INR 2.5-3.5 Critical: INR >5.0 Performed By: #### 4 6391 #### [address] [address] Jaron Méndez M.D. [id number] Sodium [Moles/Vol] 132 mmol/L Low 135-145 [facility] Comment on above: Order Comment: Jennifer g the induction phase of oral anticoagulation, the INR may not reflect the anticoagulation status of the patient. Therapeutic ranges for INR's are: Most clinical situations: INR 2.0-3.0 Mechanical Prosthetic Valve: INR 2.5-3.5 Critical: INR >5.0 Performed By: #### 4 6391 #### LAB [address] [place] [address] Jaron Méndez M.D. [id number] Urea nitrogen [Mass/Vol] 25 mg/dL Normal 8- [facility] Comment on above: Order Comment: Durin g the induction phase of oral anticoagulation, the INR may not reflect the anticoagulation status of the patient. Therapeutic ranges for INR's are: Most clinical situations: INR 2.0-3.0 Mechanical Prosthetic Valve: INR 2.5-3.5 Critical: INR >5.0 Performed By: #### 4 6391 #### [place] [address] Jaron Méndez M.D. [id number] Urea nitrogen/Creatinine [Mass ratio] 17.9 mg/mg Normal 10.0-20.0 [facility] Comment on above: Order Comment: Duralfonzo g the induction phase of oral anticoagulation, the INR may not reflect the anticoagulation status of the patient. Therapeutic ranges for INR's are: Most clinical situations: INR 2.0-3.0 Mechanical Prosthetic Valve: INR 2.5-3.5 Critical: INR >5.0 Performed By: #### 4 6391 #### [address] [address] Jaron Méndez M.D. [id number] PT/INRon 12-21-2023 INR Coag (PPP) [Relative time] 2.9 {INR} High 0.8-1.1 [facility] Comment on above: Order Comment: Jennifer g the induction phase of oral anticoagulation, the INR may not reflect the anticoagulation status of the patient. Therapeutic ranges for INR's are: Most clinical situations: INR 2.0-3.0 Mechanical Prosthetic Valve: INR 2.5-3.5 Critical: INR >5.0 Performed By: #### 4 6391 #### [place] [id number] Jaron Mnédez M.D. [id number] PT Coag (PPP) [Time] 31.1 s High 11.8-14.3 [facility] Comment on above: Order Comment: Jennifer retana the induction phase of oral anticoagulation, the INR may not reflect the anticoagulation status of the patient. Therapeutic ranges for INR's are: Most clinical situations: INR 2.0-3.0 Mechanical Prosthetic Valve: INR 2.5-3.5 Critical: INR >5.0 Performed By: #### 4 6391 #### [facility] [address] [place], [place] [address] Jaron Méndez M.D. [id number] [facility] POCT PT/INROrdered By: Adilene Albright on 12-20-2023 INR Coag (Bld) [Relative time] 4.4 {INR} Abnormal 0.8 - 1.1 [facility] Comment on above: Patient will get a b lood draw at [facility] tomorrow morning. Coumadin clinic aware. She is holing her dose for tonight. Interpretation and review of laboratory results Abnormal [facility] External Lab PT/INRon 2023 INR Coag (PPP) [Relative time] 4.1 {INR} [facility] No Panel Informationon 12-12 [facility] POCT PT/INROrdered By: Makenzie Garza on 12-13-2023 INR Coag (Bld) [Relative time] 4.1 {INR} Abnormal 0.8 - 1.1 [facility] Interpretation and review of laboratory results Abnormal [facility] Creatinine [Mass/Vol] 1.7 mg/dL High 0.6-1.2 [facility] External Lab PT/INRon 2023 INR Coag (PPP) [Relative time] 4.4 {INR} [facility] No Panel Informationon 12-05 [facility] POCT PT/INROrdered By: Makenzie Garza on 12-06-2023 INR Coag (Bld) [Relative time] 4.4 {INR} Abnormal 0.8 - 1.1 [facility] Comment on above: Pt declined venipunc ture for lab draw. Coumadin clinic aware. See Narrative note Interpretation and review of laboratory results Abnormal [facility] External Lab PT/INRon 2023 INR Coag (PPP) [Relative time] 3.5 {INR} [facility] No Panel Informationon 11-28 [facility] POCT PT/INROrdered By: Adilene Albright on 11-29-2023 INR Coag (Bld) [Relative time] 3.5 {INR} Abnormal 0.8 - 1.1 [facility] Interpretation and review of laboratory results Abnormal [facility] US ANKLE/BRACHIAL INDICES EX TREMITY LIMITEDon 11-28-2023 US ANKLE/BRACHIAL INDICES EXTREMITY LIMITED Patient Info Name: SCOTT OBREGON Age: 63 years : 1960 Gender: Female Exam Date: 11/28/2023 3:21 PM Patient Status: Outpatient Steward/Stewardess Second Class: AMBER LUCIO RVT Referring Physician: ABIGAIL ESTRELLA ; Indications - Left foot ischemia with ischemic ulcers I73.9 - Peripheral vascular disease, unspecified Procedure Description 61742 Limited bilateral noninvasive physiologic studies of upper [...] Carcamo DO on 11/28/2023 03:38 PM Normal [facility] US ANKLE/BRACHIAL INDICES EXTREMITY LIMITED Patient Info Name: SCOTT OBREGON Age: 63 years : 1960 Gender: Female Exam Date: 11/28/2023 3:21 PM Patient Status: Outpatient Steward/Stewardess Second Class: AMBER LUCIO RVT Referring Physician: ABIGAIL ESTRELLA ; Indications - Left foot ischemia with ischemic ulcers I73.9 - Peripheral vascular disease, unspecified Procedure Description 83347 Limited bilateral noninvasive physiologic studies of upper [...] MonNov 28, 2023 3:44:31 PM EDT Normal [facility] CBC WITH AUTO DIFFERENTIALon 11-23-2023 AUTO NRBC 0.0 % Normal [facility] Comment on above: Performed By: #### L [id number] #### LAB [address] [place] [address] Jaron Méndez M.D. [id number] AUTO NRBC ABS COUNT 0.00 K/mcL Normal 0.00-0.00 [facility] Comment on above: Performed By: #### L [id number] #### LAB [address] [place] [address] Jaron Méndez M.D. [id number] BASOPHILS ABSOLUTE COUNT 0.04 K/mcL Normal 0.00-0.30 [facility] Comment on above: Performed By: #### L [id number] #### LAB [address] [place] [address] Jaron Méndez M.D. [id number] Basophils/100 WBC (Bld) 0.6 % Normal [facility] Comment on above: Performed By: #### L [id number] #### LAB [address] [place] [address] Jaron Méndez M.D. [id number] Eosinophils (Bld) [#/Vol] 0.07 10*3/uL Normal 0.00-0.50 [facility] Comment on above: Performed By: #### L [id number] #### LAB [address] [place] [address] Jaron Méndez M.D. [id number] Eosinophils/100 WBC (Bld) 1.1 % Normal [facility] Comment on above: Performed By: #### L [id number] #### LAB [address] [place] [address] Jaron Méndez M.D. [id number] Erythrocyte distribution width (RBC) [Ratio] 17.9 % High 11.6-14.8 [facility] Comment on above: Performed By: #### L [id number] #### [facility] [address] [place] [address] Jaron Méndez M.D. [id number] Hematocrit (Bld) [Volume fraction] 29.2 % Low 36.0-46.0 [facility] Comment on above: Performed By: #### L [id number] #### LAB [address] [place] [address] Jaron Méndez M.D. [id number] Hemoglobin (Bld) [Mass/Vol] 9.0 g/dL Low 12.0-16.0 [facility] Comment on above: Performed By: #### L [id number] #### LAB [address] [place] [address] Jaron Méndez M.D. [id number] IG ABSOLUTE 0.06 K/mcL Normal 0.00-0.30 [facility] Comment on above: Performed By: #### L [id number] #### LAB [address] [place] [address] Jaron Méndez M.D. [id number] IG PERCENT 0.90 % Normal [facility] Comment on above: Result Comment: The IG parameter is the percentage of metamyelocytes, myelocytes and promyelocytes. An immature granulocyte count (IG) of 1% or more suggests the possibility of infection, an IG count of 3% is very likely related to an infection. Performed By: #### L [id number] #### LAB [address] [place] [address] Jaron Méndez M.D. [id number] Lymphocytes (Bld) [#/Vol] 1.09 10*3/uL Normal 0.90-4.00 [facility] Comment on above: Performed By: #### L [id number] #### LAB [address] [place] [address] Jaron Méndez M.D. [id number] Lymphocytes/100 WBC (Bld) 16.7 % Normal [facility] Comment on above: Performed By: #### L [id number] #### LAB [address] [place] [address] Jaron Méndez M.D. [id number] MCH (RBC) [Entitic mass] 27.4 pg Normal 26.0-34.0 [facility] Comment on above: Performed By: #### L [id number] #### LAB [address] [place] [address] Jaron Méndez M.D. [id number] MCV (RBC) [Entitic vol] 88.8 fL Normal 80.0-100.0 [facility] Comment on above: Performed By: #### L [id number] #### LAB [address] [place] [address] Jaron Méndez M.D. [id number] MEAN CORPUSCULAR HEMOGLOBIN CONC 30.8 g/dL Low 31.0-37.0 [facility] Comment on above: Performed By: #### L [id number] #### LAB [address] [place] [address] Jaron Méndez M.D. [id number] Monocytes (Bld) [#/Vol] 0.56 10*3/uL Normal 0.30-0.90 [facility] Comment on above: Performed By: #### L [id number] #### LAB [address] [place] [address] Jaron Méndez M.D. [id number] Monocytes/100 WBC (Bld) 8.6 % Normal [facility] Comment on above: Performed By: #### L [id number] #### LAB [address] [place] [address] Jaron Méndez M.D. [id number] NEUTROPHILS ABSOLUTE COUNT 4.72 K/mcL Normal 1.70-7.00 [facility] Comment on above: Performed By: #### L [id number] #### LAB [address] [place] [address] Jaron Méndez M.D. [id number] Neutrophils/100 WBC (Bld) 72.1 % Normal [facility] Comment on above: Performed By: #### L [id number] #### LAB [address] [place] [address] Jaron Méndez M.D. [id number] Platelet mean volume (Bld) [Entitic vol] 10.2 fL Normal 9.4-12.4 [facility] Comment on above: Performed By: #### L [id number] #### [facility] [address] [place] [address] Jaron Méndez M.D. [id number] Platelets (Bld) [#/Vol] 299 10*3/uL Normal 150-400 [facility] Comment on above: Performed By: #### L [id number] #### MH LAB [address] [address] Jaron Méndez M.D. [id number] RBC (Bld) [#/Vol] 3.29 10*6/uL Low 4.00-5.20 [facility] Comment on above: Performed By: #### L [id number] #### [facility] [address] [address] Jaron Méndez M.D. [id number] WBC (Bld) [#/Vol] 6.54 10*3/uL Normal 4.50-11.00 [facility] Comment on above: Performed By: #### L [id number] #### LAB [address] [place] [address] Jaron Méndez M.D. [id number] COMPREHENSIVE METABOLIC PANE [facility] 11-23-2023 Albumin [Mass/Vol] 3.4 g/dL Normal 3.2-5.2 [facility] Comment on above: Order Comment: [facility] has implemented the eGFR calculation approach that does not have a coefficient for race that conforms to the NKF-ASN Task Force Recommendations. Performed By: #### 4 6126 #### [facility] LAB [address] [address] Jaron Méndez M.D. [id number] ALP [Catalytic activity/Vol] 82 U/L Normal 40-150 [facility] Comment on above: Order Comment: [facility] has implemented the eGFR calculation approach that does not have a coefficient for race that conforms to the NKF-ASN Task Force Recommendations. Performed By: #### 4 6126 #### LAB [address] [address] Jaron Méndez M.D. [id number] ALT [Catalytic activity/Vol] 21 U/L Normal 0-35 U/L [facility] Comment on above: Order Comment: [facility] has implemented the eGFR calculation approach that does not have a coefficient for race that conforms to the NKF-ASN Task Force Recommendations. Performed By: #### 4 6126 #### LAB [address] [address] Jaron Méndez M.D. [id number] Anion gap [Moles/Vol] 16 mmol/L Normal 10-20 [facility] Comment on above: Order Comment: [facility] has implemented the eGFR calculation approach that does not have a coefficient for race that conforms to the NKF-ASN Task Force Recommendations. Performed By: #### 4 6126 #### LAB [address] [address] Jaron Méndez M.D. [id number] AST [Catalytic activity/Vol] 43 U/L High 0-35 U/L [facility] Comment on above: Order Comment: [facility] has implemented the eGFR calculation approach that does not have a coefficient for race that conforms to the NKF-ASN Task Force Recommendations. Performed By: #### 4 6126 #### LAB [address] [address] Jaron Méndez M.D. [id number] Bilirubin [Mass/Vol] 0.3 mg/dL Normal 0.0-1.3 [facility] Comment on above: Order Comment: [facility] has implemented the eGFR calculation approach that does not have a coefficient for race that conforms to the NKF-ASN Task Force Recommendations. Performed By: #### 4 6126 #### LAB [address] [address] Jaron Méndez M.D. [id number] Calcium [Mass/Vol] 8.8 mg/dL Normal 8.4-10.2 [facility] Comment on above: Order Comment: [facility] has implemented the eGFR calculation approach that does not have a coefficient for race that conforms to the NKF-ASN Task Force Recommendations. Performed By: #### 4 6126 #### LAB [address] [place], [place] [address] Jaron Méndez M.D. [id number] Chloride [Moles/Vol] 101 mmol/L Normal 98-108 [facility] Comment on above: Order Comment: [facility] has implemented the eGFR calculation approach that does not have a coefficient for race that conforms to the NKF-ASN Task Force Recommendations. Performed By: #### 4 6126 #### LAB [address] [address] Jaron Méndez M.D. [id number] Creatinine [Mass/Vol] 1.34 mg/dL High 0.60-1.10 [facility] Comment on above: Order Comment: [facility] has implemented the eGFR calculation approach that does not have a coefficient for race that conforms to the NKF-ASN Task Force Recommendations. Performed By: #### 4 6126 #### LAB [address] [address] Jaron Méndez M.D. [id number] EGFR 45 mL/min/1.73 m2 Low >=60 [facility] Comment on above: Order Comment: [facility] has implemented the eGFR calculation approach that does not have a coefficient for race that conforms to the NKF-ASN Task Force Recommendations. Result Comment: Joi mated GFR was calculated using the 2020 CKD-EPI creatinine equation. Performed By: #### 4 6126 #### LAB [address] [place], [place] [address] Jaron Méndez M.D. [id number] Glucose [Mass/Vol] 102 mg/dL High 65-99 [facility] Comment on above: Order Comment: [facility] has implemented the eGFR calculation approach that does not have a coefficient for race that conforms to the NKF-ASN Task Force Recommendations. Performed By: #### 4 6126 #### LAB [address] [address] Jaron Méndez M.D. [id number] HCO3 (Bld) [Moles/Vol] 21 mmol/L Normal 21-32 [facility] Comment on above: Order Comment: [facility] has implemented the eGFR calculation approach that does not have a coefficient for race that conforms to the NKF-ASN Task Force Recommendations. Performed By: #### 4 6126 #### LAB [address] [address] Jaron Méndez M.D. [id number] Potassium [Moles/Vol] 4.4 mmol/L Normal 3.5-5.1 [facility] Comment on above: Order Comment: [facility] has implemented the eGFR calculation approach that does not have a coefficient for race that conforms to the NKF-ASN Task Force Recommendations. Performed By: #### 4 6126 #### LAB [address] [address] Jaron Méndez M.D. [id number] Protein [Mass/Vol] 7.0 g/dL Normal 6.0-8.0 [facility] Comment on above: Order Comment: [facility] has implemented the eGFR calculation approach that does not have a coefficient for race that conforms to the NKF-ASN Task Force Recommendations. Performed By: #### 4 6126 #### LAB [address] [address] Jaron Méndez M.D. [id number] Sodium [Moles/Vol] 134 mmol/L Low 135-145 [facility] Comment on above: Order Comment: [facility] has implemented the eGFR calculation approach that does not have a coefficient for race that conforms to the NKF-ASN Task Force Recommendations. Performed By: #### 4 6126 #### LAB [address] [address] Jaron Méndez M.D. [id number] Urea nitrogen [Mass/Vol] 30 mg/dL High 8-25 [facility] Comment on above: Order Comment: [facility] has implemented the eGFR calculation approach that does not have a coefficient for race that conforms to the NKF-ASN Task Force Recommendations. Performed By: #### 4 6126 #### LAB [address] [place], [place] [address] Jaron Méndez M.D. [id number] Urea nitrogen/Creatinine [Mass ratio] 22.4 mg/mg High 10.0-20.0 [facility] Comment on above: Order Comment: [facility] has implemented the eGFR calculation approach that does not have a coefficient for race that conforms to the NKF-ASN Task Force Recommendations. Performed By: #### 4 6126 #### LAB [address] [place], [place] [address] Jaron Méndez M.D. [id number] External Lab PT/INRon 2023 INR Coag (PPP) [Relative time] 2.5 {INR} [facility] No Panel Informationon 11-20 [facility] POCT PT/INROrdered By: Adilene Albright on 11-21-2023 INR Coag (Bld) [Relative time] 2.5 {INR} Abnormal 0.8 - 1.1 [facility] Interpretation and review of laboratory results Abnormal [facility] RENAL ARTERY DUPLEX COMPL ETEon 11-16-2023 RENAL ARTERY DUPLEX COMPLETE Patient Info Name: SCOTT OBREGON Age: 63 years : 1960 Gender: Female Exam Date: 11/16/2023 8:47 AM Patient Status: Outpatient Steward/Stewardess Second Class: Gosia Eric RDMS, RVT Referring Physician: TYLOR KRUGER ; Indications - 10-09-2023 Emergent EVAR with renal stenting with Dr. Kruger/Dr. Guerra Z98.890 - Other specified postprocedural states Procedure Description 73024 Duplex scan of arterial inflow and venous [...] Amador John MD on 11/16/2023 01:27 PM [facility] RENAL ARTERY DUPLEX COMPLETE Patient Info Name: SCOTT OBREGON Age: 63 years : 1960 Gender: Female Exam Date: 11/16/2023 8:47 AM Patient Status: Outpatient Steward/Stewardess Second Class: Gosia Eric, BRAULIO, RVT Referring Physician: TYLOR KRUGER ; Indications - 10-09-2023 Emergent EVAR with renal stenting with Dr. Kruger/Dr. Guerra Z98.890 - Other specified postprocedural states Procedure Description 31929 Duplex scan of arterial inflow and venous [...] MonNov 16, 2023 1:32:30 PM EDT Normal [facility] External Lab PT/INRon 2023 INR Coag (PPP) [Relative time] 3.5 {INR} [facility] No Panel Informationon 11-13 [facility] [place] POCT PT/INROrdered By: Adilene Albright on 11-14-2023 INR Coag (Bld) [Relative time] 3.5 {INR} Abnormal 0.8 - 1.1 [facility] Interpretation and review of laboratory results Abnormal [facility] External Lab PT/INRon 2023 INR Coag (PPP) [Relative time] 2.3 {INR} [facility] No Panel Informationon 11-07 [facility] [place] POCT PT/INROrdered By: Antonietta Monk on 11-08-2023 INR Coag (Bld) [Relative time] 2.3 {INR} Abnormal 0.8 - 1.1 [facility] Interpretation and review of laboratory results Abnormal [facility] PT Coag (PPP) [Time]on 11-01 INR Coag (PPP) [Relative time] 2.7 {INR} Normal <=5.0 [facility] Comment on above: Order Comment: The r ecommended therapeutic INR range for most cardiac indications is 2.0-3.0 For high intensity therapy (i.e. mechanical heart valves), the recommended range is 2.5-3.5 Performed By: #### 5 902-2 #### [facility] ([facility]) LAB [address] [place] [address] Prothrombin timeon PT Coag (PPP) [Time] 28.4 s High 11.9-14.7 [facility] Comment on above: Order Comment: The r ecommended therapeutic INR range for most cardiac indications is 2.0-3.0 For high intensity therapy (i.e. mechanical heart valves), the recommended range is 2.5-3.5 Performed By: #### 5 902-2 #### [facility] ([facility]) LAB [address] [place] [address] Comprehensive metabolic 2000 panelon 10-31-2023 Albumin [Mass/Vol] 2.6 g/dL Low 3.5-4.8 [facility] Comment on above: Performed By: #### 5 902-2 #### [facility] ([facility]) LAB [address] [place] [address] ALP [Catalytic activity/Vol] 59 U/L Normal 32-91 [facility] Comment on above: Performed By: #### 5 902-2 #### [facility] ([facility] LAB [address] [place] [address] ALT [Catalytic activity/Vol] 21 U/L Normal 7-52 [facility] Comment on above: Performed By: #### 5 902-2 #### [facility] [place] ([facility] LAB [address] [place] [address] Anion gap [Moles/Vol] 10 mmol/L Normal 6-18 [facility] Comment on above: Performed By: #### 5 902-2 #### [facility] [place] ([facility] LAB [address] [place] [address] AST [Catalytic activity/Vol] 32 U/L Normal 15-41 [facility] Comment on above: Performed By: #### 5 902-2 #### [facility] [place] [facility] LAB [address] [place] [address] Bilirubin [Mass/Vol] 0.4 mg/dL Normal 0.3-1.2 [facility] Comment on above: Performed By: #### 5 902-2 #### [facility] [place] LAB [address] [place] [address] Calcium [Mass/Vol] 8.3 mg/dL Low 8.9-10.3 [facility] Comment on above: Performed By: #### 5 902-2 #### [facility] [place] LAB [address] [place] [address] Chloride [Moles/Vol] 105 mmol/L Normal 98-107 [facility] Comment on above: Performed By: #### 5 902-2 #### [facility] [place] LAB [address] [place] [address] CO2 [Moles/Vol] 20 mmol/L Low 22-32 [facility] Comment on above: Performed By: #### 5 902-2 #### [facility] [place]) LAB [address] [place] [address] Creatinine [Mass/Vol] 1.12 mg/dL Normal 0.60-1.30 [facility] Comment on above: Performed By: #### 5 902-2 #### [facility] [place] LAB [address] [place] [address] GFR/1.73 sq M.predicted among non-blacks MDRD (S/P/Bld) [Vol rate/Area] 56 mL/min/{1.73_m2} Low >=60 [facility] Comment on above: Result Comment: Calc ulation based on the?Chronic Kidney Disease Epidemiology Collaboration (CKD-EPI) equation refit?without adjustment for race. Performed By: #### 5 902-2 #### [facility] [place] LAB [address] [place] [address] Glucose [Mass/Vol] 76 mg/dL Normal 70-99 [facility] Comment on above: Performed By: #### 5 902-2 #### [facility] [place] LAB [address] [place] [address] Potassium [Moles/Vol] 4.7 mmol/L Normal 3.6-5.1 [facility] Comment on above: Performed By: #### 5 902-2 #### [facility] [place] LAB [address] [place] [address] Protein [Mass/Vol] 6.4 g/dL Normal 6.1-7.9 [facility] Comment on above: Performed By: #### 5 902-2 #### [facility] [place] LAB [address] [place] [address] Sodium [Moles/Vol] 135 mmol/L Low 136-145 [facility] Comment on above: Performed By: #### 5 902-2 #### [facility] [place] LAB [address] [place] [address] Urea nitrogen [Mass/Vol] 30 mg/dL High 8-20 [facility] Comment on above: Performed By: #### 5 902-2 #### [facility] [place] LAB [address] [place] [address] Urea nitrogen/Creatinine [Mass ratio] 26.8 mg/mg High 12.0-20.0 [facility] Comment on above: Performed By: #### 5 902-2 #### [facility] [place] LAB [address] [place] [address] Hemogram and platelets WO di fferential panel (Bld)on 10-31-2023 Erythrocyte distribution width (RBC) [Ratio] 19.0 % High 11.0-14.8 [facility] Comment on above: Performed By: #### 5 902-2 #### [facility] [place] [facility] LAB [address] [place] [address] Hematocrit (Bld) [Volume fraction] 28.9 % Low 34.3-47.9 [facility] Comment on above: Performed By: #### 5 902-2 #### [facility] [place] [facility] LAB [address] [place] [address] Hemoglobin (Bld) [Mass/Vol] 8.8 g/dL Low 12.0-16.0 [facility] Comment on above: Performed By: #### 5 902-2 #### [facility] [place] [facility] LAB [address] [place] [address] MCH 26.7 pcg Low 27.0-34.0 [facility] Comment on above: Performed By: #### 5 902-2 #### [facility] [place] [facility] LAB [address] [place] [address] MCHC (RBC) [Mass/Vol] 30.4 g/dL Low 30.8-35.3 [facility] Comment on above: Performed By: #### 5 902-2 #### [facility] [place] [facility] LAB [address] [place] [address] MCV (RBC) [Entitic vol] 87.8 fL Normal 80.0-97.0 [facility] Comment on above: Performed By: #### 5 902-2 #### [facility] [place] [facility] LAB [address] [place] [address] Platelet mean volume (Bld) [Entitic vol] 9.3 fL Normal 6.2-12.1 [facility] Comment on above: Performed By: #### 5 902-2 #### [facility] [place] ([facility] [address] [place] [address] Platelets (Bld) [#/Vol] 369 10*3/uL Normal 142-424 [facility] Comment on above: Performed By: #### 5 902-2 #### [facility] [place] [facility] [address] [place] [address] RBC (Bld) [#/Vol] 3.29 10*6/uL Low 3.74-5.34 [facility] Comment on above: Performed By: #### 5 902-2 #### [facility] [place] [facility] [address] [place] [address] WBC (Bld) [#/Vol] 7.3 10*3/uL Normal 4.6-10.2 [facility] Comment on above: Performed By: #### 5 902-2 #### [facility] [place] [facility] LAB [address] [place] [address] PT Coag (PPP) [Time]on 10-30 INR Coag (PPP) [Relative time] 2.8 {INR} Normal <=5.0 [facility] Comment on above: Order Comment: The r ecommended therapeutic INR range for most cardiac indications is 2.0-3.0 For high intensity therapy (i.e. mechanical heart valves), the recommended range is 2.5-3.5 Performed By: #### 5 902-2 #### [facility] [place] [facility] [address] [place] [address] Prothrombin timeon PT Coag (PPP) [Time] 29.2 s High 11.9-14.7 [facility] Comment on above: Order Comment: The r ecommended therapeutic INR range for most cardiac indications is 2.0-3.0 For high intensity therapy (i.e. mechanical heart valves), the recommended range is 2.5-3.5 Performed By: #### 5 902-2 #### [facility] [address] [place] [address] Basic metabolic 2000 panelon 10-30-2023 Anion gap [Moles/Vol] 7 mmol/L Normal 6-18 [facility] Comment on above: Performed By: #### 2 4321-2 #### [facility] ([facility] LAB [address] [place] [address] Calcium [Mass/Vol] 8.3 mg/dL Low 8.9-10.3 [facility] Comment on above: Performed By: #### 2 4321-2 #### [facility] [address] [place] [address] Chloride [Moles/Vol] 104 mmol/L Normal 98-107 [facility] Comment on above: Performed By: #### 2 4321-2 #### [facility] [address] [place] [address] CO2 [Moles/Vol] 22 mmol/L Normal 22-32 [facility] Comment on above: Performed By: #### 2 4321-2 #### [facility] [address] [place] [address] Creatinine [Mass/Vol] 1.20 mg/dL Normal 0.60-1.30 [facility] Comment on above: Performed By: #### 2 4321-2 #### [facility] ([facility] LAB [address] [place] [address] 41681 GFR/1.73 sq M.predicted among non-blacks MDRD (S/P/Bld) [Vol rate/Area] 52 mL/min/{1.73_m2} Low >=60 [facility] Comment on above: Result Comment: Calc ulation based on the?Chronic Kidney Disease Epidemiology Collaboration (CKD-EPI) equation refit?without adjustment for race. Performed By: #### 2 4321-2 #### [facility] [address] [place] [address] Glucose [Mass/Vol] 79 mg/dL Normal 70-99 [facility] Comment on above: Performed By: #### 2 4321-2 #### [facility] [place] [facility] [address] [place] [address] Potassium [Moles/Vol] 4.4 mmol/L Normal 3.6-5.1 [facility] Comment on above: Performed By: #### 2 4321-2 #### [facility] [place] [facility] [address] [place] [address] Sodium [Moles/Vol] 133 mmol/L Low 136-145 [facility] Comment on above: Performed By: #### 2 4321-2 #### [facility] [place] [facility] [address] [place] [address]657 Urea nitrogen [Mass/Vol] 29 mg/dL High 8-20 [facility] Comment on above: Performed By: #### 2 4321-2 #### [facility] [place] [facility] [address] [place] [address]795 Urea nitrogen/Creatinine [Mass ratio] 24.2 mg/mg High 12.0-20.0 [facility] Comment on above: Performed By: #### 2 4321-2 #### [facility] [place] [facility] [address] [place] [address]21 Hemogram and platelets WO di fferential panel (Bld)on 10-30-2023 Erythrocyte distribution width (RBC) [Ratio] 19.1 % High 11.0-14.8 [facility] Comment on above: Performed By: #### 5 902-2 #### [facility] [place] [facility] [address] [place] [address] Hematocrit (Bld) [Volume fraction] 29.6 % Low 34.3-47.9 [facility] Comment on above: Performed By: #### 5 902-2 #### [facility] [place] [facility] [address] [place] [address]3280 Hemoglobin (Bld) [Mass/Vol] 9.1 g/dL Low 12.0-16.0 [facility] Comment on above: Performed By: #### 5 902-2 #### [facility] [place] [facility] LAB [address] [place] [address]3413 MCH 26.8 pcg Low 27.0-34.0 [facility] Comment on above: Performed By: #### 5 902-2 #### [facility] [place] [facility] LAB [address] [place] [address] 56014 MCHC (RBC) [Mass/Vol] 30.7 g/dL Low 30.8-35.3 [facility] Comment on above: Performed By: #### 5 902-2 #### [facility] [place] [facility] LAB [address] [place] [address] 41394 MCV (RBC) [Entitic vol] 87.1 fL Normal 80.0-97.0 [facility] Comment on above: Performed By: #### 5 902-2 #### [facility] [place] [facility] LAB [address] [place] [address] 33853 Platelet mean volume (Bld) [Entitic vol] 9.5 fL Normal 6.2-12.1 [facility] Comment on above: Performed By: #### 5 902-2 #### [facility] [place] [facility] LAB [address] [place] [address]684 Platelets (Bld) [#/Vol] 338 10*3/uL Normal 142-424 [facility] Comment on above: Performed By: #### 5 902-2 #### [facility] [place] [facility] LAB [address] [place] [address] 20814 RBC (Bld) [#/Vol] 3.40 10*6/uL Low 3.74-5.34 [facility] Comment on above: Performed By: #### 5 902-2 #### [facility] [place] [facility] LAB [address] [place] [address] 49625 WBC (Bld) [#/Vol] 5.7 10*3/uL Normal 4.6-10.2 [facility] Comment on above: Performed By: #### 902-2 #### [facility] [place] [facility] LAB [address] [place] [address] 93610 Nuclear IgG IA Ql (S)on Amorphous Crystals, Urine Moderate Abnormal None [facility] Comment on above: Performed By: #### -2 #### [facility] [place] [facility] LAB [address] [place] [address] 22167 Bacteria, Urine Rare Abnormal None [facility] Comment on above: Performed By: #### -2 #### [facility] [place] ([facility] [address] [place] [address] 76338 Bilirubin, Urine Negative Normal Negative [facility] Comment on above: Performed By: #### 2-2 #### [facility] [place] ([facility] [address] [place] [address] 43221 Blood, Urine 1+ Abnormal Negative, Trace [facility] Comment on above: Performed By: #### -2 #### [facility] [place] [address] [place] [address] 39699 Clarity (U) Hazy Abnormal Clear [facility] Comment on above: Performed By: #### -2 #### [facility] [place] [address] [place] [address] 89322 Color (U) Yellow Normal Yellow [facility] Comment on above: Performed By: #### -2 #### [facility] [place] [address] [place] [address] 05054 Glucose Ql (U) Normal Normal Normal [facility] Comment on above: Performed By: #### -2 #### [facility] [place] [address] [place] [address] 26498 Ketones Ql (U) Negative Normal Negative [facility] Comment on above: Performed By: #### 2-2 #### [facility] ([facility]) LAB [address] [place] [address] Leukocytes, Urine 75 WBCs/mcL Abnormal Negative [facility] Comment on above: Performed By: #### 902-2 #### [facility] ([facility]) LAB [address] [place] [address] Mucus, UA Rare Abnormal None [facility] Comment on above: Performed By: #### 902-2 #### [facility] ([facility]) LAB [address] [place] [address] Nitrite, Urine Negative Normal Negative [facility] Comment on above: Performed By: #### 90-2 #### [facility] ([facility]) LAB [address] [place] [address] pH (U) 7.5 [pH] Normal 5.0-8.0 [facility] Comment on above: Performed By: #### 90-2 #### [facility] ([facility]) LAB [address] [place] [address] 78793 Protein (U) [Mass/Vol] 50 mg/dL Abnormal Negative [facility] Comment on above: Performed By: #### 90-2 #### [facility] ([facility]) LAB [address] [place] [address] RBC LM.HPF (Urine sed) [#/Area] 3 /[HPF] Normal 0-5 [facility] Comment on above: Performed By: #### 90-2 #### [facility] ([facility]) LAB [address] [place] [address] Specific Cades Urine 1.024 Normal 1.002 -1.03 0 [facility] Comment on above: Performed By: #### 90-2 #### [facility] ([facility]) LAB [address] [place] [address] Squamous Epithelial, Urine Rare Abnormal None [facility] Comment on above: Performed By: #### 902-2 #### [facility] ([facility]) LAB [address] [place] [address] Triple Phosphate Crystals, Urine Rare Abnormal None [facility] Comment on above: Performed By: #### 5 902-2 #### [facility] ([facility]) LAB [address] [place] [address] 06051 Urobilinogen, Urine Normal Normal Normal [facility] Comment on above: Performed By: #### 5 902-2 #### [facility] ([facility]) LAB [address] [place] [address] 42245 WBC LM.HPF (Urine sed) [#/Area] 19 /[HPF] High 0-5 [facility] Comment on above: Performed By: #### 5 902-2 #### [facility] ([facility]) LAB [address] [place] [address] 95005 PT Coag (PPP) [Time]on 10-29 INR Coag (PPP) [Relative time] 2.5 {INR} Normal <=5.0 [facility] Comment on above: Order Comment: The r ecommended therapeutic INR range for most cardiac indications is 2.0-3.0 For high intensity therapy (i.e. mechanical heart valves), the recommended range is 2.5-3.5 Performed By: #### 5 902-2 #### [facility] ([facility]) LAB [address] [place] [address] 45862 Prothrombin timeon 4 PT Coag (PPP) [Time] 26.6 s High 11.9-14.7 [facility] Comment on above: Order Comment: The r ecommended therapeutic INR range for most cardiac indications is 2.0-3.0 For high intensity therapy (i.e. mechanical heart valves), the recommended range is 2.5-3.5 Performed By: #### 5 902-2 #### [facility] ([facility]) LAB [address] [place] [address] 50538 Sodium (U) [Moles/Vol]on Creatinine, Urine 76.8 mg/dL Normal [facility] Comment on above: Order Comment: No re ference range has been established for this assay (test result). Performed By: #### 2 4321-2 #### [facility] ([facility]) LAB [address] [place] [address] 12074 PT Coag (PPP) [Time]on 10-28 INR Coag (PPP) [Relative time] 2.6 {INR} Normal <=5.0 [facility] Comment on above: Order Comment: The r ecommended therapeutic INR range for most cardiac indications is 2.0-3.0 For high intensity therapy (i.e. mechanical heart valves), the recommended range is 2.5-3.5 Performed By: #### 5 902-2 #### [facility] ([facility]) LAB [address] [place] [address] 94703 Prothrombin timeon 4 PT Coag (PPP) [Time] 27.3 s High 11.9-14.7 [facility] Comment on above: Order Comment: The r ecommended therapeutic INR range for most cardiac indications is 2.0-3.0 For high intensity therapy (i.e. mechanical heart valves), the recommended range is 2.5-3.5 Performed By: #### 5 902-2 #### [facility] ([facility]) LAB [address] [place] [address] 98585 PT Coag (PPP) [Time]on 10-27 INR Coag (PPP) [Relative time] 2.6 {INR} Normal <=5.0 [facility] Comment on above: Order Comment: The r ecommended therapeutic INR range for most cardiac indications is 2.0-3.0 For high intensity therapy (i.e. mechanical heart valves), the recommended range is 2.5-3.5 Performed By: #### 5 902-2 #### [facility] ([facility]) LAB [address] [place] [address] 35570 Prothrombin timeon 4 PT Coag (PPP) [Time] 27.3 s High 11.9-14.7 [facility] Comment on above: Order Comment: The r ecommended therapeutic INR range for most cardiac indications is 2.0-3.0 For high intensity therapy (i.e. mechanical heart valves), the recommended range is 2.5-3.5 Performed By: #### 5 902-2 #### [facility] [place] [facility] [address] [place] [address] Comprehensive metabolic 2000 panelon 10-27-2023 Albumin [Mass/Vol] 2.7 g/dL Low 3.5-4.8 [facility] Comment on above: Performed By: #### 2 4323-8 #### [facility] [place]) [facility] [address] [place] [address] ALP [Catalytic activity/Vol] 59 U/L Normal 32-91 [facility] Comment on above: Performed By: #### 2 4323-8 #### [facility] [place]) [facility] [address] [place] [address] ALT [Catalytic activity/Vol] 21 U/L Normal 7-52 [facility] Comment on above: Performed By: #### 2 4323-8 #### [facility] [place] [address] [place] [address] Anion gap [Moles/Vol] 9 mmol/L Normal 6-18 [facility] Comment on above: Performed By: #### 2 4323-8 #### [facility] [place] [address] [place] [address] AST [Catalytic activity/Vol] 34 U/L Normal 15-41 [facility] Comment on above: Performed By: #### 2 4323-8 #### [facility] [place] [facility] [address] [place] [address] Bilirubin [Mass/Vol] 0.5 mg/dL Normal 0.3-1.2 [facility] Comment on above: Performed By: #### 2 4323-8 #### [facility] [place] [address] [place] [address] Calcium [Mass/Vol] 8.4 mg/dL Low 8.9-10.3 [facility] Comment on above: Performed By: #### 2 4323-8 #### [facility] [place] [facility] [address] [place] [address] Chloride [Moles/Vol] 106 mmol/L Normal 98-107 [facility] Comment on above: Performed By: #### 2 4323-8 #### [facility] [place] [address] [place] [address] 58742 CO2 [Moles/Vol] 20 mmol/L Low 22-32 [facility] Comment on above: Performed By: #### 2 432-8 #### [facility] [place] [address] [place] [address] 62584 Creatinine [Mass/Vol] 1.22 mg/dL Normal 0.60-1.30 [facility] Comment on above: Performed By: #### 2 432-8 #### [facility] [place] [address] [place] [address] 57391 GFR/1.73 sq M.predicted among non-blacks MDRD (S/P/Bld) [Vol rate/Area] 51 mL/min/{1.73_m2} Low >=60 [facility] Comment on above: Result Comment: Calc ulation based on the?Chronic Kidney Disease Epidemiology Collaboration (CKD-EPI) equation refit?without adjustment for race. Performed By: #### 2 432-8 #### [facility] [place] [address] [place] [address] 55944 Glucose [Mass/Vol] 78 mg/dL Normal 70-99 [facility] Comment on above: Performed By: #### 2 4323-8 #### [facility] [place] [facility] [address] [place] [address] 89563 Potassium [Moles/Vol] 4.6 mmol/L Normal 3.6-5.1 [facility] Comment on above: Performed By: #### 2 4323-8 #### [facility] [place] [address] [place] [address] 09855 Protein [Mass/Vol] 6.4 g/dL Normal 6.1-7.9 [facility] Comment on above: Performed By: #### 2 4323-8 #### [facility] [place] [address] [place] [address] Sodium [Moles/Vol] 135 mmol/L Low 136-145 [facility] Comment on above: Performed By: #### 2 4323-8 #### [facility] [place] [address] [place] [address] Urea nitrogen [Mass/Vol] 33 mg/dL High 8-20 [facility] Comment on above: Performed By: #### 2 3-8 #### [facility] ([facility]) LAB [address] [place] [address] 52441 Urea nitrogen/Creatinine [Mass ratio] 27.0 mg/mg High 12.0-20.0 [facility] Comment on above: Performed By: #### 2 3-8 #### [facility] ([facility]) LAB [address] [place] [address] 50836 Hemogram and platelets WO di fferential panel (Bld)on 10-27-2023 Erythrocyte distribution width (RBC) [Ratio] 19.0 % High 11.0-14.8 [facility] Comment on above: Performed By: #### 2 4321-2 #### [facility] [address] [place] [address] 16963 Hematocrit (Bld) [Volume fraction] 28.1 % Low 34.3-47.9 [facility] Comment on above: Performed By: #### 2 4321-2 #### [facility] [place] [address] [place] [address] 87680 Hemoglobin (Bld) [Mass/Vol] 8.7 g/dL Low 12.0-16.0 [facility] Comment on above: Performed By: #### 2 4321-2 #### [facility] [place] [address] [place] [address] 70058 MCH 26.4 pcg Low 27.0-34.0 [facility] Comment on above: Performed By: #### 2 4321-2 #### [facility] [place] [address] [place] [address] 04074 MCHC (RBC) [Mass/Vol] 31.0 g/dL Normal 30.8-35.3 [facility] Comment on above: Performed By: #### 2 4321-2 #### [facility] [place] [facility] [address] [place] [address] 21132 MCV (RBC) [Entitic vol] 85.2 fL Normal 80.0-97.0 [facility] Comment on above: Performed By: #### 2 4321-2 #### [facility] [place] [address] [place] [address] 69545 Platelet mean volume (Bld) [Entitic vol] 9.2 fL Normal 6.2-12.1 [facility] Comment on above: Performed By: #### 2 4321-2 #### [facility] [place] [facility] [address] [place] [address] 28131 Platelets (Bld) [#/Vol] 396 10*3/uL Normal 142-424 [facility] Comment on above: Performed By: #### 2 4321-2 #### [facility] [place] [facility] [address] [place] [address] 73298 RBC (Bld) [#/Vol] 3.30 10*6/uL Low 3.74-5.34 [facility] Comment on above: Performed By: #### 2 4321-2 #### [facility] [place] [facility] [address] [place] [address] 61526 WBC (Bld) [#/Vol] 7.2 10*3/uL Normal 4.6-10.2 [facility] Comment on above: Performed By: #### 2 1-2 #### [facility] [place] [facility] [address] [place] [address] 30541 PT Coag (PPP) [Time]on 10-26 INR Coag (PPP) [Relative time] 2.5 {INR} Normal <=5.0 [facility] Comment on above: Order Comment: The r ecommended therapeutic INR range for most cardiac indications is 2.0-3.0 For high intensity therapy (i.e. mechanical heart valves), the recommended range is 2.5-3.5 Performed By: #### 5 902-2 #### [facility] ([facility]) LAB [address] [place] [address] 36778 Prothrombin timeon PT Coag (PPP) [Time] 26.3 s High 11.9-14.7 [facility] Comment on above: Order Comment: The r ecommended therapeutic INR range for most cardiac indications is 2.0-3.0 For high intensity therapy (i.e. mechanical heart valves), the recommended range is 2.5-3.5 Performed By: #### 5 902-2 #### [facility] ([facility]) LAB [address] [place] [address] 32907 Basic metabolic 2000 panelon 10-26-2023 Iron [Mass/Vol] 25 ug/dL Low 37-145 [facility] Comment on above: Performed By: #### 2 4321-2 #### [facility] ([facility]) LAB [address] [place] [address] 77251 Iron Saturation 12 % Low 20-55 [facility] Comment on above: Performed By: #### 2 4321-2 #### [facility] ([facility]) LAB [address] [place] [address] 58300 TIBC 214 mcg/dL Low 228-428 [facility] Comment on above: Performed By: #### 2 4321-2 #### [facility] ([facility]) LAB [address] [place] [address] 77709 Hemogram and platelets WO di fferential panel (Bld)on 10-26-2023 Erythrocyte distribution width (RBC) [Ratio] 18.9 % High 11.0-14.8 [facility] Comment on above: Performed By: #### 2 7-0 #### [facility] [place] [facility] [address] [place] [address] 88754 Hematocrit (Bld) [Volume fraction] 28.9 % Low 34.3-47.9 [facility] Comment on above: Performed By: #### 2 7-0 #### [facility] [address] [place] [address] 39163 Hemoglobin (Bld) [Mass/Vol] 9.0 g/dL Low 12.0-16.0 [facility] Comment on above: Performed By: #### 2 4316-0 #### [facility] [place] [facility] [address] [place] [address] 16184 MCH 26.4 pcg Low 27.0-34.0 [facility] Comment on above: Performed By: #### 2 4316-0 #### [facility] ([facility]) [facility] [address] [place] [address] 65335 MCHC (RBC) [Mass/Vol] 31.1 g/dL Normal 30.8-35.3 [facility] Comment on above: Performed By: #### 2 4316-0 #### [facility] ([facility]) [facility] [address] [place] [address] 79863 MCV (RBC) [Entitic vol] 84.8 fL Normal 80.0-97.0 [facility] Comment on above: Performed By: #### 2 7-0 #### [facility] [address] [place] [address] 56612 Platelet mean volume (Bld) [Entitic vol] 9.1 fL Normal 6.2-12.1 [facility] Comment on above: Performed By: #### 2 7-0 #### [facility] [place] [facility] [address] [place] [address] 72794 Platelets (Bld) [#/Vol] 417 10*3/uL Normal 142-424 [facility] Comment on above: Performed By: #### 2 7-0 #### [facility] ([facility]) LAB [address] [place] [address] RBC (Bld) [#/Vol] 3.41 10*6/uL Low 3.74-5.34 [facility] Comment on above: Performed By: #### 2 4317-0 #### [facility] ([facility]) [facility] [address] [place] [address] WBC (Bld) [#/Vol] 7.5 10*3/uL Normal 4.6-10.2 [facility] Comment on above: Performed By: #### 2 4317-0 #### [facility] ([facility]) [facility] [address] [place] [address] 55741 PT Coag (PPP) [Time]on 10-25 INR Coag (PPP) [Relative time] 2.1 {INR} Normal <=5.0 [facility] Comment on above: Order Comment: The r ecommended therapeutic INR range for most cardiac indications is 2.0-3.0 For high intensity therapy (i.e. mechanical heart valves), the recommended range is 2.5-3.5 Performed By: #### 5 902-2 #### [facility] ([facility]) [facility] [address] [place] [address] 78656 Prothrombin timeon PT Coag (PPP) [Time] 23.2 s High 11.9-14.7 [facility] Comment on above: Order Comment: The r ecommended therapeutic INR range for most cardiac indications is 2.0-3.0 For high intensity therapy (i.e. mechanical heart valves), the recommended range is 2.5-3.5 Performed By: #### 5 902-2 #### [facility] ([facility]) LAB [address] [place] [address] 80262 Basic metabolic 2000 panelon 10-25-2023 Anion gap [Moles/Vol] 9 mmol/L Normal 6-18 [facility] Comment on above: Performed By: #### 5 902-2 #### [facility] ([facility]) LAB [address] [place] [address] 13642 Calcium [Mass/Vol] 8.4 mg/dL Low 8.9-10.3 [facility] Comment on above: Performed By: #### 5 902-2 #### [facility] ([facility]) [facility] [address] [place] [address] Chloride [Moles/Vol] 104 mmol/L Normal 98-107 [facility] Comment on above: Performed By: #### 5 902-2 #### [facility] ([facility]) [facility] [address] [place] [address] CO2 [Moles/Vol] 20 mmol/L Low 22-32 [facility] Comment on above: Performed By: #### 5 902-2 #### [facility] ([facility]) LAB [address] [place] [address] 26788 Creatinine [Mass/Vol] 1.25 mg/dL Normal 0.60-1.30 [facility] Comment on above: Performed By: #### 5 902-2 #### [facility] ([facility]) LAB [address] [place] [address] GFR/1.73 sq M.predicted among non-blacks MDRD (S/P/Bld) [Vol rate/Area] 49 mL/min/{1.73_m2} Low >=60 [facility] Comment on above: Result Comment: Calc ulation based on the?Chronic Kidney Disease Epidemiology Collaboration (CKD-EPI) equation refit?without adjustment for race. Performed By: #### 5 902-2 #### [facility] ([facility]) [facility] [address] [place] [address] Glucose [Mass/Vol] 80 mg/dL Normal 70-99 [facility] Comment on above: Performed By: #### 5 902-2 #### [facility] [address] [place] [address] Potassium [Moles/Vol] 4.6 mmol/L Normal 3.6-5.1 [facility] Comment on above: Performed By: #### 5 902-2 #### [facility] ([facility]) [facility] [address] [place] [address] Sodium [Moles/Vol] 133 mmol/L Low 136-145 [facility] Comment on above: Performed By: #### 5 902-2 #### [facility] ([facility]) [facility] [address] [place] [address] Urea nitrogen [Mass/Vol] 27 mg/dL High 8-20 [facility] Comment on above: Performed By: #### 5 902-2 #### [facility] ([facility]) [facility] [address] [place] [address] 98749 Urea nitrogen/Creatinine [Mass ratio] 21.6 mg/mg High 12.0-20.0 [facility] Comment on above: Performed By: #### 5 902-2 #### [facility] ([facility]) [facility] [address] [place] [address] 56242 Blood type and Indirect anti body screen panel (Bld)on 10-25-2023 ABO group Nom (Bld) O Normal [facility] Comment on above: Performed By: #### 3 4532-2 #### [facility] [address] [place] [address] 84543 Rh Type Positive Normal [facility] Comment on above: Performed By: #### 3 4532-2 #### [facility] [address] [place] [address] 76715 Hemogram and platelets WO di fferential panel (Bld)on 10-25-2023 Erythrocyte distribution width (RBC) [Ratio] 18.3 % High 11.0-14.8 [facility] Comment on above: Performed By: #### 2 4317-0 #### [facility] ([facility]) LAB [address] [place] [address] 66595 Hematocrit (Bld) [Volume fraction] 22.1 % Low 34.3-47.9 [facility] Comment on above: Performed By: #### 2 4317-0 #### [facility] [place] [facility] [address] [place] [address] Hemoglobin (Bld) [Mass/Vol] 6.7 g/dL Critically low 12.0-16.0 [facility] Comment on above: Performed By: #### 2 4317-0 #### [facility] [place] [facility] [address] [place] [address] 56210 MCH 27.0 pcg Normal 27.0-34.0 [facility] Comment on above: Performed By: #### 2 4316-0 #### [facility] [place] [address] [place] [address] 43536 MCHC (RBC) [Mass/Vol] 30.3 g/dL Low 30.8-35.3 [facility] Comment on above: Performed By: #### 2 7-0 #### [facility] [place] [facility] [address] [place] [address] 47650 MCV (RBC) [Entitic vol] 89.1 fL Normal 80.0-97.0 [facility] Comment on above: Performed By: #### 2 4317-0 #### [facility] [place] [facility] [address] [place] [address] 04903 Platelet mean volume (Bld) [Entitic vol] 9.1 fL Normal 6.2-12.1 [facility] Comment on above: Performed By: #### 2 4317-0 #### [facility] [place] [facility] [address] [place] [address] 42199 Platelets (Bld) [#/Vol] 434 10*3/uL High 142-424 [facility] Comment on above: Performed By: #### 2 4317-0 #### [facility] [place] [facility] [address] [place] [address] 68759 RBC (Bld) [#/Vol] 2.48 10*6/uL Low 3.74-5.34 [facility] Comment on above: Performed By: #### 2 4317-0 #### [facility] ([facility]) [facility] [address] [place] [address] WBC (Bld) [#/Vol] 8.6 10*3/uL Normal 4.6-10.2 [facility] Comment on above: Performed By: #### 2 4317-0 #### [facility] ([facility]) [facility] [address] [place] [address] PT Coag (PPP) [Time]on 10-24 INR Coag (PPP) [Relative time] 2.0 {INR} Normal <=5.0 [facility] Comment on above: Order Comment: The r ecommended therapeutic INR range for most cardiac indications is 2.0-3.0 For high intensity therapy (i.e. mechanical heart valves), the recommended range is 2.5-3.5 Performed By: #### 5 902-2 #### [facility] ([facility]) LAB [address] [place] [address] Prothrombin timeon 4 PT Coag (PPP) [Time] 22.0 s High 11.9-14.7 [facility] Comment on above: Order Comment: The r ecommended therapeutic INR range for most cardiac indications is 2.0-3.0 For high intensity therapy (i.e. mechanical heart valves), the recommended range is 2.5-3.5 Performed By: #### 5 902-2 #### [facility] ([facility]) [facility] [address] [place] [address] PT Coag (PPP) [Time]on 10-23 INR Coag (PPP) [Relative time] 1.8 {INR} Normal <=5.0 [facility] Comment on above: Order Comment: The r ecommended therapeutic INR range for most cardiac indications is 2.0-3.0 For high intensity therapy (i.e. mechanical heart valves), the recommended range is 2.5-3.5 Performed By: #### 5 902-2 #### [facility] ([facility]) [facility] [address] [place] [address] Prothrombin timeon 4 PT Coag (PPP) [Time] 20.2 s High 11.9-14.7 [facility] Comment on above: Order Comment: The r ecommended therapeutic INR range for most cardiac indications is 2.0-3.0 For high intensity therapy (i.e. mechanical heart valves), the recommended range is 2.5-3.5 Performed By: #### 5 902-2 #### [facility] ([facility]) [facility] [address] [place] [address] PT Coag (PPP) [Time]on 10-22 INR Coag (PPP) [Relative time] 1.7 {INR} Normal <=5.0 [facility] Comment on above: Order Comment: The r ecommended therapeutic INR range for most cardiac indications is 2.0-3.0For high intensity therapy (i.e. mechanical heart valves), the recommended range is 2.5-3.5 Performed By: #### 2 4321-2 #### [facility] ([facility]) [facility] [address] [place] [address] Prothrombin timeon 4 PT Coag (PPP) [Time] 19.6 s High 11.9-14.7 [facility] Comment on above: Order Comment: The r ecommended therapeutic INR range for most cardiac indications is 2.0-3.0For high intensity therapy (i.e. mechanical heart valves), the recommended range is 2.5-3.5 Performed By: #### 2 4321-2 #### [facility] ([facility]) [facility] [address] [place] [address] PT Coag (PPP) [Time]on 10-20 INR Coag (PPP) [Relative time] 2.9 {INR} Normal <=5.0 [facility] Comment on above: Order Comment: The r ecommended therapeutic INR range for most cardiac indications is 2.0-3.0 For high intensity therapy (i.e. mechanical heart valves), the recommended range is 2.5-3.5 Performed By: #### 5 902-2 #### [facility] ([facility]) [facility] [address] [place] [address] Prothrombin timeon 4 PT Coag (PPP) [Time] 29.5 s High 11.9-14.7 [facility] Comment on above: Order Comment: The r ecommended therapeutic INR range for most cardiac indications is 2.0-3.0 For high intensity therapy (i.e. mechanical heart valves), the recommended range is 2.5-3.5 Performed By: #### 5 902-2 #### [facility] ([facility]) [facility] [address] [place] [address] CALCIUM, IONIZEDon 4 CALCIUM IONIZED 4.4 mg/dL Low 4.5-5.3 [facility] Comment on above: Performed By: #### 4 5190 ####[facility] [address] [place] [address] Glenn Gudino M.D. [id number] CBCon 10-20-2023 AUTO NRBC 0.0 % Normal [facility] Comment on above: Performed By: #### 4 5218 ####[facility] [address] [place], [place] [address] Glenn Gudino M.D. [id number] AUTO NRBC ABS COUNT 0.00 K/mcL Normal 0.00-0.00 [facility] Comment on above: Performed By: #### 4 5218 ####[facility] [address] [place], [place] [address] Glenn Gudino M.D. [id number] Erythrocyte distribution width (RBC) [Ratio] 17.4 % High 11.6-14.8 [facility] Comment on above: Performed By: #### 4 5218 ####[facility] [address] [place], [place] [address] Glenn Gudino M.D. [id number] Hematocrit (Bld) [Volume fraction] 23.6 % Low 36.0-46.0 [facility] Comment on above: Performed By: #### 4 5218 ####[facility] [address] [place], [place] [address] Glenn Gudino M.D. [id number] Hemoglobin (Bld) [Mass/Vol] 7.4 g/dL Low 12.0-16.0 [facility] Comment on above: Performed By: #### 4 5218 ####[facility] [address] [place] [address] Glenn Gudino M.D. [id number] MCH (RBC) [Entitic mass] 27.4 pg Normal 26.0-34.0 [facility] Comment on above: Performed By: #### 4 5218 ####[facility] [address] [place] [address] Glenn Gudino M.D. [id number] MCV (RBC) [Entitic vol] 87.4 fL Normal 80.0-100.0 [facility] Comment on above: Performed By: #### 4 5218 ####[facility] [address] [place], [place] [address] Glenn Gudino M.D. [id number] MEAN CORPUSCULAR HEMOGLOBIN CONC 31.4 g/dL Normal 31.0-37.0 [facility] Comment on above: Performed By: #### 4 5218 ####[facility] [address] [place], [place] [address] Glenn Gudino M.D. [id number] Platelet mean volume (Bld) [Entitic vol] 9.3 fL Low 9.4-12.4 [facility] Comment on above: Performed By: #### 4 5218 ####[facility] [address] [place], [place] [address] Glenn Gudino M.D. [id number] Platelets (Bld) [#/Vol] 489 10*3/uL High 150-400 [facility] Comment on above: Performed By: #### 4 5218 ####[facility] [address] [place] [address] Glenn Gudino M.D. [id number] RBC (Bld) [#/Vol] 2.70 10*6/uL Low 4.00-5.20 [facility] Comment on above: Performed By: #### 4 5218 ####[facility] [address] [place] [address] Glenn Gudino M.D. [id number] WBC (Bld) [#/Vol] 12.80 10*3/uL High 4.50-11.00 [facility] Comment on above: Performed By: #### 4 5218 ####[facility] [address] [place] [address] Glenn Gudino M.D. [id number] COMPREHENSIVE METABOLIC PANE [facility] 10-20-2023 Albumin [Mass/Vol] 2.3 g/dL Low 3.2-5.2 [facility] Comment on above: Order Comment: [facility] has implemented the eGFR calculation approach that does not have a coefficient for race that conforms to the NKF-ASN Task Force Recommendations. Performed By: #### 4 6126 ####[facility] [address] [place] [address] Glenn Gudino M.D. [id number] ALP [Catalytic activity/Vol] 104 U/L Normal 40-150 [facility] Comment on above: Order Comment: [facility] has implemented the eGFR calculation approach that does not have a coefficient for race that conforms to the NKF-ASN Task Force Recommendations. Performed By: #### 4 6126 ####[facility] [address] [place] [address] Glenn Gudino M.D. [id number] ALT [Catalytic activity/Vol] 26 U/L Normal 0-35 U/L [facility] Comment on above: Order Comment: [facility] has implemented the eGFR calculation approach that does not have a coefficient for race that conforms to the NKF-ASN Task Force Recommendations. Performed By: #### 4 6126 ####[facility] [address] [place] [address] Glenn Gudino M.D. [id number] Anion gap [Moles/Vol] 11 mmol/L Normal 10-20 [facility] Comment on above: Order Comment: [facility] has implemented the eGFR calculation approach that does not have a coefficient for race that conforms to the NKF-ASN Task Force Recommendations. Performed By: #### 4 6126 ####[facility] [address] [place] [address] Glenn Gudino M.D. [id number] AST [Catalytic activity/Vol] 59 U/L High 0-35 U/L [facility] Comment on above: Order Comment: [facility] has implemented the eGFR calculation approach that does not have a coefficient for race that conforms to the NKF-ASN Task Force Recommendations. Performed By: #### 4 6126 ####[facility] [address] [place] [address] Glenn Gudino M.D. [id number] Bilirubin [Mass/Vol] 0.4 mg/dL Normal 0.0-1.3 [facility] Comment on above: Order Comment: [facility] has implemented the eGFR calculation approach that does not have a coefficient for race that conforms to the NKF-ASN Task Force Recommendations. Performed By: #### 4 6126 ####[facility] [address] [place] [address] Glenn Gudino M.D. [id number] Calcium [Mass/Vol] 7.9 mg/dL Low 8.4-10.2 [facility] Comment on above: Order Comment: [facility] has implemented the eGFR calculation approach that does not have a coefficient for race that conforms to the NKF-ASN Task Force Recommendations. Performed By: #### 4 6126 ####[facility] [address] [place] [address] Glenn Gudino M.D. [id number] Chloride [Moles/Vol] 105 mmol/L Normal 98-108 [facility] Comment on above: Order Comment: [facility] has implemented the eGFR calculation approach that does not have a coefficient for race that conforms to the NKF-ASN Task Force Recommendations. Performed By: #### 4 6126 ####[facility] [address] [place] [address] Glenn Gudino M.D. [id number] Creatinine [Mass/Vol] 0.84 mg/dL Normal 0.60-1.10 [facility] Comment on above: Order Comment: [facility] has implemented the eGFR calculation approach that does not have a coefficient for race that conforms to the NKF-ASN Task Force Recommendations. Performed By: #### 4 6126 ####[facility] [address] [place] [address] Glenn Gudino M.D. [id number] EGFR 79 mL/min/1.73 m2 Normal >=60 [facility] Comment on above: Order Comment: [facility] has implemented the eGFR calculation approach that does not have a coefficient for race that conforms to the NKF-ASN Task Force Recommendations. Result Comment: Joi mated GFR was calculated using the 2020 CKD-EPI creatinine equation. Performed By: #### 4 6126 ####[facility] [address] [place] [address] Glenn Gudino M.D. [id number] Glucose [Mass/Vol] 106 mg/dL High 65-99 [facility] Comment on above: Order Comment: [facility] has implemented the eGFR calculation approach that does not have a coefficient for race that conforms to the NKF-ASN Task Force Recommendations. Performed By: #### 4 6126 ####[facility] [address] [place] [address] Glenn Gudino M.D. [id number] HCO3 (Bld) [Moles/Vol] 23 mmol/L Normal 21-32 [facility] Comment on above: Order Comment: [facility] has implemented the eGFR calculation approach that does not have a coefficient for race that conforms to the NKF-ASN Task Force Recommendations. Performed By: #### 4 6126 ####[facility] [address] [place] [address] Glenn Gudino M.D. [id number] Potassium [Moles/Vol] 4.3 mmol/L Normal 3.5-5.1 [facility] Comment on above: Order Comment: [facility] has implemented the eGFR calculation approach that does not have a coefficient for race that conforms to the NKF-ASN Task Force Recommendations. Performed By: #### 4 6126 ####[facility] [address] [place], [place] [address] Glenn Gudino M.D. [id number] Protein [Mass/Vol] 6.2 g/dL Normal 6.0-8.0 [facility] Comment on above: Order Comment: [facility] has implemented the eGFR calculation approach that does not have a coefficient for race that conforms to the NKF-ASN Task Force Recommendations. Performed By: #### 4 6126 ####[facility] [address] [place] [address] Glenn Gudino M.D. [id number] Sodium [Moles/Vol] 135 mmol/L Normal 135-145 [facility] Comment on above: Order Comment: [facility] has implemented the eGFR calculation approach that does not have a coefficient for race that conforms to the NKF-ASN Task Force Recommendations. Performed By: #### 4 6126 ####[facility] [address] [place] [address] Glenn Gudino M.D. [id number] Urea nitrogen [Mass/Vol] 21 mg/dL Normal 8-25 [facility] Comment on above: Order Comment: [facility] has implemented the eGFR calculation approach that does not have a coefficient for race that conforms to the NKF-ASN Task Force Recommendations. Performed By: #### 4 6126 ####[facility] [address] [place], [place] [address] Glenn Gudino M.D. [id number] Urea nitrogen/Creatinine [Mass ratio] 25.0 mg/mg High 10.0-20.0 [facility] Comment on above: Order Comment: [facility] has implemented the eGFR calculation approach that does not have a coefficient for race that conforms to the NKF-ASN Task Force Recommendations. Performed By: #### 4 6126 ####[facility] [address] [place], [place] [address] Glenn Gudino M.D. [id number] Disch Summon 10-20-2023 Disch Summ Normal [facility] MAGNESIUM LEVELon 10-20-2023 Magnesium [Mass/Vol] 2.1 mg/dL Normal 1.6-2.4 [facility] Comment on above: Performed By: #### 4 6109 ####[facility] [address] [place], [place] [address] Glenn Gudino M.D. [id number] PHOSPHORUSon 10-20-2023 Phosphate [Mass/Vol] 2.8 mg/dL Normal 2.8-4.1 [facility] Comment on above: Performed By: #### 4 6299 ####[facility] [address] [place] [address] Glenn Gudino M.D. [id number] PT/INRon 10-20-2023 INR Coag (PPP) [Relative time] 3.6 {INR} High 0.8-1.1 [facility] Comment on above: Order Comment: Jennifer retana the induction phase of oral anticoagulation, the INR may not reflect the anticoagulation status of the patient. Therapeutic ranges for INR's are:Most clinical situations: INR 2.0-3.0Mechanical Prosthetic Valve: INR 2.5-3.5Critical: INR >5.0 Performed By: #### 4 6391 ####[facility] [address] [place] [address] Glenn Gudino M.D. [id number] PT Coag (PPP) [Time] 37.0 s High 11.8-14.3 [facility] Comment on above: Order Comment: Jennifer retana the induction phase of oral anticoagulation, the INR may not reflect the anticoagulation status of the patient. Therapeutic ranges for INR's are:Most clinical situations: INR 2.0-3.0Mechanical Prosthetic Valve: INR 2.5-3.5Critical: INR >5.0 Performed By: #### 4 6391 ####[facility] [address] [place] [address] Glenn Gudino M.D. [id number] CALCIUM, IONIZEDon CALCIUM IONIZED 4.4 mg/dL Low 4.5-5.3 [facility] Comment on above: Performed By: #### 4 5190 ####[facility] [address] [place] [address] Glenn Gudino M.D. [id number] CBCon 10-19-2023 AUTO NRBC 0.0 % Normal [facility] Comment on above: Performed By: #### 4 [id number] ####[facility] [address] [place], [place] [address] Glenn Gudino M.D. [id number] AUTO NRBC ABS COUNT 0.00 K/mcL Normal 0.00-0.00 [facility] Comment on above: Performed By: #### 4 5218 ####[facility] [address] [place], [place] [address] Glenn Gudino M.D. [id number] Erythrocyte distribution width (RBC) [Ratio] 17.4 % High 11.6-14.8 [facility] Comment on above: Performed By: #### 4 [id number] ####[facility] [address] [place], [place] [address] Glenn Gudino M.D. [id number] Hematocrit (Bld) [Volume fraction] 26.6 % Low 36.0-46.0 [facility] Comment on above: Performed By: #### 4 [id number] ####[facility] [address] [place] [address] Glenn Gudino M.D. [id number] Hemoglobin (Bld) [Mass/Vol] 8.3 g/dL Low 12.0-16.0 [facility] Comment on above: Performed By: #### 4 [id number] ####[facility] [address] [place] [address] Glenn Gudino M.D. [id number] MCH (RBC) [Entitic mass] 27.5 pg Normal 26.0-34.0 [facility] Comment on above: Performed By: #### 4 [id number] ####[facility] [address] [place], [place] [address] Glenn Gudino M.D. [id number] MCV (RBC) [Entitic vol] 88.1 fL Normal 80.0-100.0 [facility] Comment on above: Performed By: #### 4 [id number] ####[facility] [address] [place], [place] [address] Glenn Gudino M.D. [id number] MEAN CORPUSCULAR HEMOGLOBIN CONC 31.2 g/dL Normal 31.0-37.0 [facility] Comment on above: Performed By: #### 4 5218 ####[facility] [address] [place], [place] [address] Glenn Gudino M.D. [id number] Platelet mean volume (Bld) [Entitic vol] 9.2 fL Low 9.4-12.4 [facility] Comment on above: Performed By: #### 4 [id number] ####[facility] [address] [place] [address] Glenn Gudino M.D. [id number] Platelets (Bld) [#/Vol] 485 10*3/uL High 150-400 [facility] Comment on above: Performed By: #### 4 [id number] ####[facility] [address] [place] [address] Glenn Gudino M.D. [id number] RBC (Bld) [#/Vol] 3.02 10*6/uL Low 4.00-5.20 [facility] Comment on above: Performed By: #### 4 5218 ####[facility] [address] [place] [address] Glenn Gudino M.D. [id number] WBC (Bld) [#/Vol] 12.60 10*3/uL High 4.50-11.00 [facility] Comment on above: Performed By: #### 4 5218 ####[facility] [address] [place] [address] Glenn Gudino M.D. [id number] COMPREHENSIVE METABOLIC PANE [place] 10-19-2023 Albumin [Mass/Vol] 2.3 g/dL Low 3.2-5.2 [facility] Comment on above: Order Comment: [facility] has implemented the eGFR calculation approach that does not have a coefficient for race that conforms to the NKF-ASN Task Force Recommendations. Performed By: #### 4 6126 ####[facility] [address] [place] [address] Glenn Gudino M.D. [id number] ALP [Catalytic activity/Vol] 103 U/L Normal 40-150 [facility] Comment on above: Order Comment: [facility] has implemented the eGFR calculation approach that does not have a coefficient for race that conforms to the NKF-ASN Task Force Recommendations. Performed By: #### 4 6126 ####[facility] [address] [place], [place] [address] Glenn Gudino M.D. [id number] ALT [Catalytic activity/Vol] 23 U/L Normal 0-35 U/L [facility] Comment on above: Order Comment: [facility] has implemented the eGFR calculation approach that does not have a coefficient for race that conforms to the NKF-ASN Task Force Recommendations. Performed By: #### 4 6126 ####[facility] [address] [place], [place] [address] Glenn Gudino M.D. [id number] Anion gap [Moles/Vol] 14 mmol/L Normal 10-20 [facility] Comment on above: Order Comment: [facility] has implemented the eGFR calculation approach that does not have a coefficient for race that conforms to the NKF-ASN Task Force Recommendations. Performed By: #### 4 6126 ####[facility] [address] [place], [place] [address] Glenn Gudino M.D. [id number] AST [Catalytic activity/Vol] 63 U/L High 0-35 U/L [facility] Comment on above: Order Comment: [facility] has implemented the eGFR calculation approach that does not have a coefficient for race that conforms to the NKF-ASN Task Force Recommendations. Performed By: #### 4 6126 ####[facility] [address] [place] [address] Glenn Gudino M.D. [id number] Bilirubin [Mass/Vol] 0.6 mg/dL Normal 0.0-1.3 [facility] Comment on above: Order Comment: [facility] has implemented the eGFR calculation approach that does not have a coefficient for race that conforms to the NKF-ASN Task Force Recommendations. Performed By: #### 4 6126 ####[facility] [address] [place], [place] [address] Glenn Gudino M.D. [id number] Calcium [Mass/Vol] 8.2 mg/dL Low 8.4-10.2 [facility] Comment on above: Order Comment: [facility] has implemented the eGFR calculation approach that does not have a coefficient for race that conforms to the NKF-ASN Task Force Recommendations. Performed By: #### 4 6126 ####[facility] [address] [place], [place] [address] Glenn Gudino M.D. [id number] Chloride [Moles/Vol] 102 mmol/L Normal 98-108 [facility] Comment on above: Order Comment: [facility] has implemented the eGFR calculation approach that does not have a coefficient for race that conforms to the NKF-ASN Task Force Recommendations. Performed By: #### 4 6126 ####[facility] [address] [place], [place] [address] Glenn Gudino M.D. [id number] Creatinine [Mass/Vol] 0.94 mg/dL Normal 0.60-1.10 [facility] Comment on above: Order Comment: [facility] has implemented the eGFR calculation approach that does not have a coefficient for race that conforms to the NKF-ASN Task Force Recommendations. Performed By: #### 4 6126 ####[facility] [address] [place], [place] [address] Glenn Gudino M.D. [id number] EGFR 69 mL/min/1.73 m2 Normal >=60 [facility] Comment on above: Order Comment: [facility] has implemented the eGFR calculation approach that does not have a coefficient for race that conforms to the NKF-ASN Task Force Recommendations. Result Comment: Joi mated GFR was calculated using the 2020 CKD-EPI creatinine equation. Performed By: #### 4 6126 ####[facility] [address] [place], [place] [address] Glenn Gudino M.D. [id number] Glucose [Mass/Vol] 82 mg/dL Normal 65-99 [facility] Comment on above: Order Comment: [facility] has implemented the eGFR calculation approach that does not have a coefficient for race that conforms to the NKF-ASN Task Force Recommendations. Performed By: #### 4 6126 ####[facility] [address] [place], [place] [address] Glenn Gudino M.D. [id number] HCO3 (Bld) [Moles/Vol] 22 mmol/L Normal 21-32 [facility] Comment on above: Order Comment: [facility] has implemented the eGFR calculation approach that does not have a coefficient for race that conforms to the NKF-ASN Task Force Recommendations. Performed By: #### 4 6126 ####[facility] [address] [place], [place] [address] Glenn Gudino M.D. [id number] Potassium [Moles/Vol] 3.7 mmol/L Normal 3.5-5.1 [facility] Comment on above: Order Comment: [facility] has implemented the eGFR calculation approach that does not have a coefficient for race that conforms to the NKF-ASN Task Force Recommendations. Performed By: #### 4 6126 ####[facility] [address] [place], [place] [address] Glenn Gudino M.D. [id number] Protein [Mass/Vol] 6.6 g/dL Normal 6.0-8.0 [facility] Comment on above: Order Comment: [facility] has implemented the eGFR calculation approach that does not have a coefficient for race that conforms to the NKF-ASN Task Force Recommendations. Performed By: #### 4 6126 ####[facility] [address] [place] [address] 89286 Glenn Gudino M.D. [id number] Sodium [Moles/Vol] 134 mmol/L Low 135-145 [facility] Comment on above: Order Comment: [facility] has implemented the eGFR calculation approach that does not have a coefficient for race that conforms to the NKF-ASN Task Force Recommendations. Performed By: #### 4 6126 ####[facility] [address] [place] [address] 69671 Glenn Gudino M.D. [id number] Urea nitrogen [Mass/Vol] 22 mg/dL Normal 8-25 [facility] Comment on above: Order Comment: [facility] has implemented the eGFR calculation approach that does not have a coefficient for race that conforms to the NKF-ASN Task Force Recommendations. Performed By: #### 4 6126 ####[facility] [address] [place], [place] [address] Glenn Gudino M.D. [id number] Urea nitrogen/Creatinine [Mass ratio] 23.4 mg/mg High 10.0-20.0 [facility] Comment on above: Order Comment: [facility] has implemented the eGFR calculation approach that does not have a coefficient for race that conforms to the NKF-ASN Task Force Recommendations. Performed By: #### 4 6126 ####[facility] [address] [place], [place] [address] Glenn Gudino M.D. [id number] MAGNESIUM LEVELon 10-19-2023 Magnesium [Mass/Vol] 1.9 mg/dL Normal 1.6-2.4 [facility] Comment on above: Performed By: #### 4 6109 ####[facility] [address] [place] [address] 76140 Glenn Gudino M.D. [id number] PHOSPHORUSon 10-19-2023 Phosphate [Mass/Vol] 2.4 mg/dL Low 2.8-4.1 [facility] Comment on above: Performed By: #### 4 6299 ####[facility] [address] [place], [place] [address] Glenn Gudino M.D. [id number] POTASSIUM LEVELon 10-19-2023 Potassium [Moles/Vol] 3.8 mmol/L Normal 3.5-5.1 [facility] Comment on above: Performed By: #### 4 6351 ####[facility] [address] [place], [place] [address] Glenn Gudino M.D. [id number] PT/INRon 10-19-2023 INR Coag (PPP) [Relative time] 3.6 {INR} High 0.8-1.1 [facility] Comment on above: Order Comment: Jennifer g the induction phase of oral anticoagulation, the INR may not reflect the anticoagulation status of the patient. Therapeutic ranges for INR's are:Most clinical situations: INR 2.0-3.0Mechanical Prosthetic Valve: INR 2.5-3.5Critical: INR >5.0 Performed By: #### 4 6391 ####[facility] [address] [place], [place] [address] Glenn Gudino M.D. [id number] PT Coag (PPP) [Time] 36.9 s High 11.8-14.3 [facility] Comment on above: Order Comment: Jennifer retana the induction phase of oral anticoagulation, the INR may not reflect the anticoagulation status of the patient. Therapeutic ranges for INR's are:Most clinical situations: INR 2.0-3.0Mechanical Prosthetic Valve: INR 2.5-3.5Critical: INR >5.0 Performed By: #### 4 6391 ####[facility] [address] [place], [place] [address] Glenn Gudino M.D. [id number] CALCIUM, IONIZEDon CALCIUM IONIZED 4.7 mg/dL Normal 4.5-5.3 [facility] Comment on above: Performed By: #### 4 5190 ####[facility] [address] [place], [place] [address] Glenn Gudino M.D. [id number] CBCon 10-18-2023 AUTO NRBC 0.0 % Normal [facility] Comment on above: Performed By: #### 4 [id number] ####[facility] [address] [place] [address] Glenn Gudino M.D. [id number] AUTO NRBC ABS COUNT 0.00 K/mcL Normal 0.00-0.00 [facility] Comment on above: Performed By: #### 4 [id number] ####[facility] [address] [place] [address] Glenn Gudino M.D. [id number] Erythrocyte distribution width (RBC) [Ratio] 17.6 % High 11.6-14.8 [facility] Comment on above: Performed By: #### 4 [id number] ####[facility] [address] [place] [address] Glenn Gudino M.D. [id number] Hematocrit (Bld) [Volume fraction] 25.4 % Low 36.0-46.0 [facility] Comment on above: Performed By: #### 4 [id number] ####[facility] [address] [place] [address] Glenn Gudino M.D. [id number] Hemoglobin (Bld) [Mass/Vol] 8.0 g/dL Low 12.0-16.0 [facility] Comment on above: Performed By: #### 4 [id number] ####[facility] [address] [place] [address] Glenn Gudino M.D. [id number] MCH (RBC) [Entitic mass] 27.1 pg Normal 26.0-34.0 [facility] Comment on above: Performed By: #### 4 [id number] ####[facility] [address] [place] [address] Glenn Gudino M.D. [id number] MCV (RBC) [Entitic vol] 86.1 fL Normal 80.0-100.0 [facility] Comment on above: Performed By: #### 4 [id number] ####[facility] [address] [place] [address] Glenn Gudino M.D. [id number] MEAN CORPUSCULAR HEMOGLOBIN CONC 31.5 g/dL Normal 31.0-37.0 [facility] Comment on above: Performed By: #### 4 [id number] ####[facility] [address] [place] [address]328 Glenn Gudino M.D. [id number] Platelet mean volume (Bld) [Entitic vol] 9.0 fL Low 9.4-12.4 [facility] Comment on above: Performed By: #### 4 [id number] ####[facility] [address] [place], [place] [address] Glenn Gudino M.D. [id number] Platelets (Bld) [#/Vol] 463 10*3/uL High 150-400 [facility] Comment on above: Performed By: #### 4 [id number] ####[facility] [address] [place], [place] [address] Glenn Gudino M.D. [id number] RBC (Bld) [#/Vol] 2.95 10*6/uL Low 4.00-5.20 [facility] Comment on above: Performed By: #### 4 [id number] ####[facility] [address] [place] [address] Glenn Gudino M.D. [id number] WBC (Bld) [#/Vol] 15.56 10*3/uL High 4.50-11.00 [facility] Comment on above: Performed By: #### 4 [id number] ####[facility] [address] [place] [address] 85987 Glenn Gudino M.D. [id number] COMPREHENSIVE METABOLIC [facility] 10-18-2023 Albumin [Mass/Vol] 2.4 g/dL Low 3.2-5.2 [facility] Comment on above: Order Comment: [facility] has implemented the eGFR calculation approach that does not have a coefficient for race that conforms to the NKF-ASN Task Force Recommendations. Performed By: #### 4 6126 ####[facility] [address] [place] [address] Glenn Gudino M.D. [id number] ALP [Catalytic activity/Vol] 100 U/L Normal 40-150 [facility] Comment on above: Order Comment: [facility] has implemented the eGFR calculation approach that does not have a coefficient for race that conforms to the NKF-ASN Task Force Recommendations. Performed By: #### 4 6126 ####[facility] [address] [place], [place] [address] Glenn Gudino M.D. [id number] ALT [Catalytic activity/Vol] 26 U/L Normal 0-35 U/L [facility] Comment on above: Order Comment: [facility] has implemented the eGFR calculation approach that does not have a coefficient for race that conforms to the NKF-ASN Task Force Recommendations. Performed By: #### 4 6126 ####[facility] [address] [place] [address] Glenn Gudino M.D. [id number] Anion gap [Moles/Vol] 13 mmol/L Normal 10-20 [facility] Comment on above: Order Comment: [facility] has implemented the eGFR calculation approach that does not have a coefficient for race that conforms to the NKF-ASN Task Force Recommendations. Performed By: #### 4 6126 ####[facility] [address] [place], [place] [address] Glenn Gudino M.D. [id number] AST [Catalytic activity/Vol] 52 U/L High 0-35 U/L [facility] Comment on above: Order Comment: [facility] has implemented the eGFR calculation approach that does not have a coefficient for race that conforms to the NKF-ASN Task Force Recommendations. Performed By: #### 4 6126 ####[facility] [address] [place], [place] [address] Glenn Gudino M.D. [id number] Bilirubin [Mass/Vol] 0.5 mg/dL Normal 0.0-1.3 [facility] Comment on above: Order Comment: [facility] has implemented the eGFR calculation approach that does not have a coefficient for race that conforms to the NKF-ASN Task Force Recommendations. Performed By: #### 4 6126 ####[facility] [address] [place], [place] [address] Glenn Gudino M.D. [id number] Calcium [Mass/Vol] 8.3 mg/dL Low 8.4-10.2 [facility] Comment on above: Order Comment: [facility] has implemented the eGFR calculation approach that does not have a coefficient for race that conforms to the NKF-ASN Task Force Recommendations. Performed By: #### 4 6126 ####[facility] [address] [place], [place] [address] Glenn Gudino M.D. [id number] Chloride [Moles/Vol] 101 mmol/L Normal 98-108 [facility] Comment on above: Order Comment: [facility] has implemented the eGFR calculation approach that does not have a coefficient for race that conforms to the NKF-ASN Task Force Recommendations. Performed By: #### 4 6126 ####[facility] [address] [place] [address] 32390 Glenn Gudino M.D. [id number] Creatinine [Mass/Vol] 0.93 mg/dL Normal 0.60-1.10 [facility] Comment on above: Order Comment: [facility] has implemented the eGFR calculation approach that does not have a coefficient for race that conforms to the NKF-ASN Task Force Recommendations. Performed By: #### 4 6126 ####[facility] [address] [place] [address] 64304 Glenn Gudino M.D. [id number] EGFR 70 mL/min/1.73 m2 Normal >=60 [facility] Comment on above: Order Comment: [facility] has implemented the eGFR calculation approach that does not have a coefficient for race that conforms to the NKF-ASN Task Force Recommendations. Result Comment: Joi mated GFR was calculated using the 2020 CKD-EPI creatinine equation. Performed By: #### 4 6126 ####[facility] [address] [place] [address] 68213 Glenn Gudino M.D. [id number] Glucose [Mass/Vol] 96 mg/dL Normal 65-99 [facility] Comment on above: Order Comment: [facility] has implemented the eGFR calculation approach that does not have a coefficient for race that conforms to the NKF-ASN Task Force Recommendations. Performed By: #### 4 6126 ####[facility] [address] [place] [address] 20528 Glenn Gudino M.D. [id number] HCO3 (Bld) [Moles/Vol] 25 mmol/L Normal 21-32 [facility] Comment on above: Order Comment: [facility] has implemented the eGFR calculation approach that does not have a coefficient for race that conforms to the NKF-ASN Task Force Recommendations. Performed By: #### 4 6126 ####[facility] [address] [place] [address] 92018 Glenn Gudino M.D. [id number] Potassium [Moles/Vol] 4.0 mmol/L Normal 3.5-5.1 [facility] Comment on above: Order Comment: [facility] has implemented the eGFR calculation approach that does not have a coefficient for race that conforms to the NKF-ASN Task Force Recommendations. Performed By: #### 4 6126 ####[facility] [address] [place] [address] 62908 Glenn Gudino M.D. [id number] Protein [Mass/Vol] 6.6 g/dL Normal 6.0-8.0 [facility] Comment on above: Order Comment: [facility] has implemented the eGFR calculation approach that does not have a coefficient for race that conforms to the NKF-ASN Task Force Recommendations. Performed By: #### 4 6126 ####[facility] [address] [place] [address] 80219 Glenn Gudino M.D. [id number] Sodium [Moles/Vol] 135 mmol/L Normal 135-145 [facility] Comment on above: Order Comment: [facility] has implemented the eGFR calculation approach that does not have a coefficient for race that conforms to the NKF-ASN Task Force Recommendations. Performed By: #### 4 6126 ####[facility] [address] [place] [address] 87178 Glenn Gudino M.D. [id number] Urea nitrogen [Mass/Vol] 22 mg/dL Normal 8-25 [facility] Comment on above: Order Comment: [facility] has implemented the eGFR calculation approach that does not have a coefficient for race that conforms to the NKF-ASN Task Force Recommendations. Performed By: #### 4 6126 ####[facility] [address] [place] [address]953 Glenn Gudino M.D. [id number] Urea nitrogen/Creatinine [Mass ratio] 23.7 mg/mg High 10.0-20.0 [facility] Comment on above: Order Comment: [facility] has implemented the eGFR calculation approach that does not have a coefficient for race that conforms to the NKF-ASN Task Force Recommendations. Performed By: #### 4 6126 ####[facility] [address] [place] [address] 41302 Glenn Gudino M.D. [id number] CONSULTon 10-18-2023 CONSULT Normal [facility] MAGNESIUM LEVELon 10-18-2023 Magnesium [Mass/Vol] 1.9 mg/dL Normal 1.6-2.4 [facility] Comment on above: Performed By: #### 4 6109 ####[facility] [address] [place] [address] Glenn Gudino M.D. [id number] PHOSPHORUSon 10-18-2023 Phosphate [Mass/Vol] 2.6 mg/dL Low 2.8-4.1 [facility] Comment on above: Performed By: #### 4 6299 ####[facility] [address] [place], [place] [address] Glenn Gudino M.D. [id number] PT/INRon 10-18-2023 INR Coag (PPP) [Relative time] 3.4 {INR} High 0.8-1.1 [facility] Comment on above: Order Comment: Jennifer retana the induction phase of oral anticoagulation, the INR may not reflect the anticoagulation status of the patient. Therapeutic ranges for INR's are:Most clinical situations: INR 2.0-3.0Mechanical Prosthetic Valve: INR 2.5-3.5Critical: INR >5.0 Performed By: #### 4 6391 ####[facility] [address] [place], [place] [address] Glenn Gudino M.D. [id number] PT Coag (PPP) [Time] 35.0 s High 11.8-14.3 [facility] Comment on above: Order Comment: Jennifer retana the induction phase of oral anticoagulation, the INR may not reflect the anticoagulation status of the patient. Therapeutic ranges for INR's are:Most clinical situations: INR 2.0-3.0Mechanical Prosthetic Valve: INR 2.5-3.5Critical: INR >5.0 Performed By: #### 4 6391 ####[facility] [address] [place], [place] [address] Glenn Gudino M.D. [id number] URINALYSISon 10-18-2023 BACTERIA, URINE Few Abnormal None Seen [facility] Comment on above: Order Comment: Micro scopic examination is performed on all urinalysis samples and only positive findings are reported. The test for blood on the chemical analytic portion of urinalysis may also be positive due to hemoglobinuria and myoglobinuria and if red blood cells are present they are quantified by microscopic examination. Performed By: #### 4 6625 ####[facility] [address] [place] [address]4523 Glenn Gudino M.D. [id number] BILIRUBIN, URINE Negative Normal Negative [facility] Comment on above: Order Comment: Micro scopic examination is performed on all urinalysis samples and only positive findings are reported. The test for blood on the chemical analytic portion of urinalysis may also be positive due to hemoglobinuria and myoglobinuria and if red blood cells are present they are quantified by microscopic examination. Performed By: #### 4 6625 ####[facility] [address] [place] [address] 03074 Glenn Gudino M.D. [id number] BLOOD, URINE Small Abnormal Negative [facility] Comment on above: Order Comment: Micro scopic examination is performed on all urinalysis samples and only positive findings are reported. The test for blood on the chemical analytic portion of urinalysis may also be positive due to hemoglobinuria and myoglobinuria and if red blood cells are present they are quantified by microscopic examination. Performed By: #### 4 6625 ####[facility] [address] [place] [address] 24062 Glenn Gudino M.D. [id number] Clarity (U) Cloudy Abnormal Clear [facility] Comment on above: Order Comment: Micro scopic examination is performed on all urinalysis samples and only positive findings are reported. The test for blood on the chemical analytic portion of urinalysis may also be positive due to hemoglobinuria and myoglobinuria and if red blood cells are present they are quantified by microscopic examination. Performed By: #### 4 6625 ####[facility] [address] [place], [place] [address] Glenn Gudino M.D. [id number] Color (U) Yellow Normal Colorless, Yellow [facility] Comment on above: Order Comment: Micro scopic examination is performed on all urinalysis samples and only positive findings are reported. The test for blood on the chemical analytic portion of urinalysis may also be positive due to hemoglobinuria and myoglobinuria and if red blood cells are present they are quantified by microscopic examination. Performed By: #### 4 6625 ####[facility] [address] [place] [address] Glenn Gudino M.D. [id number] Glucose Ql (U) Negative Normal Negative [facility] Comment on above: Order Comment: Micro scopic examination is performed on all urinalysis samples and only positive findings are reported. The test for blood on the chemical analytic portion of urinalysis may also be positive due to hemoglobinuria and myoglobinuria and if red blood cells are present they are quantified by microscopic examination. Performed By: #### 4 6625 ####[facility] [address] [place], [place] [address] Glenn Gudino M.D. [id number] Ketones Ql (U) Negative Normal Negative [facility] Comment on above: Order Comment: Micro scopic examination is performed on all urinalysis samples and only positive findings are reported. The test for blood on the chemical analytic portion of urinalysis may also be positive due to hemoglobinuria and myoglobinuria and if red blood cells are present they are quantified by microscopic examination. Performed By: #### 4 6625 ####[facility] [address] [place], [place] [address] Glenn Gudino M.D. [id number] Leukocyte esterase Test strip Ql (U) Large Abnormal Negative [facility] Comment on above: Order Comment: Micro scopic examination is performed on all urinalysis samples and only positive findings are reported. The test for blood on the chemical analytic portion of urinalysis may also be positive due to hemoglobinuria and myoglobinuria and if red blood cells are present they are quantified by microscopic examination. Performed By: #### 4 6625 ####[facility] [address] [place] [address] Glenn Gudino M.D. [id number] NITRITE, URINE Negative Normal Negative [facility] Comment on above: Order Comment: Micro scopic examination is performed on all urinalysis samples and only positive findings are reported. The test for blood on the chemical analytic portion of urinalysis may also be positive due to hemoglobinuria and myoglobinuria and if red blood cells are present they are quantified by microscopic examination. Performed By: #### 4 6625 ####[facility] [address] [place] [address] Glenn Gudino M.D. [id number] pH (U) 6.5 [pH] Normal 5.0-7.0 [facility] Comment on above: Order Comment: Micro scopic examination is performed on all urinalysis samples and only positive findings are reported. The test for blood on the chemical analytic portion of urinalysis may also be positive due to hemoglobinuria and myoglobinuria and if red blood cells are present they are quantified by microscopic examination. Performed By: #### 4 6625 ####[facility] [address] [place] [address] Glenn Gudino M.D. [id number] Protein (U) [Mass/Vol] 30 mg/dL Abnormal Negative [facility] Comment on above: Order Comment: Micro [...] including ammonium compounds. Performed By: #### 4 6640 ####[facility] [address] [place] [address] 59842 Glenn Gudino M.D. [id number] RBC LM.HPF (Urine sed) [#/Area] 3 /[HPF] Normal 0-3 [facility] Comment on above: Order Comment: Micro scopic examination is performed on all urinalysis samples and only positive findings are reported. The test for blood on the chemical analytic portion of urinalysis may also be positive due to hemoglobinuria and myoglobinuria and if red blood cells are present they are quantified by microscopic examination. Performed By: #### 4 6625 ####[facility] [address] [place] [address] 41819 Glenn Gudino M.D. [id number] Specific gravity (U) [Rel density] 1.027 High 1.005-1.02 5 [facility] Comment on above: Order Comment: Micro scopic examination is performed on all urinalysis samples and only positive findings are reported. The test for blood on the chemical analytic portion of urinalysis may also be positive due to hemoglobinuria and myoglobinuria and if red blood cells are present they are quantified by microscopic examination. Performed By: #### 4 6625 ####[facility] [address] [place] [address] 48562 Glenn Gudino M.D. [id number] SQUAMOUS EPITHELIAL 7 /hpf High 0-4 [facility] Comment on above: Order Comment: Micro scopic examination is performed on all urinalysis samples and only positive findings are reported. The test for blood on the chemical analytic portion of urinalysis may also be positive due to hemoglobinuria and myoglobinuria and if red blood cells are present they are quantified by microscopic examination. Performed By: #### 4 [id number] ####[facility] [address] [place] [address] 90877 Glenn Gudino M.D. [id number] UROBILINOGEN, URINE >=4.0 Abnormal <2.0 [facility] [facility] Comment on above: Order Comment: Micro scopic examination is performed on all urinalysis samples and only positive findings are reported. The test for blood on the chemical analytic portion of urinalysis may also be positive due to hemoglobinuria and myoglobinuria and if red blood cells are present they are quantified by microscopic examination. Performed By: #### 4 6625 ####[facility] [address] [place] [address] Glenn Gudino M.D. [id number] WBC LM.HPF (Urine sed) [#/Area] 39 /[HPF] High 0-5 [facility] Comment on above: Order Comment: Micro scopic examination is performed on all urinalysis samples and only positive findings are reported. The test for blood on the chemical analytic portion of urinalysis may also be positive due to hemoglobinuria and myoglobinuria and if red blood cells are present they are quantified by microscopic examination. Performed By: #### 4 6625 ####[facility] [address] [place] [address] Glenn Gudino M.D. [id number] URINE AEROBIC CULTUREon 09-27 URINE AEROBIC CULTURE URINE CULTURE < 10,000 CFU/mL of normal urogenital microbiota Normal [facility] Comment on above: Performed By: #### 4 4053 ####[facility] [address] [place] [address] Glenn Gudino M.D. [id number] CALCIUM, IONIZEDon CALCIUM IONIZED 4.4 mg/dL Low 4.5-5.3 [facility] Comment on above: Performed By: #### 4 5190 ####[facility] [address] [place], [place] [address] Glenn Gudino M.D. [id number] CBCon 10-17-2023 AUTO NRBC 0.0 % Normal [facility] Comment on above: Performed By: #### 4 [id number] ####[facility] [address] [place], [place] [address] Glenn Gudino M.D. [id number] AUTO NRBC ABS COUNT 0.00 K/mcL Normal 0.00-0.00 [facility] Comment on above: Performed By: #### 4 [id number] ####[facility] [address] [place], [place] [address] Glenn Gudino M.D. [id number] Erythrocyte distribution width (RBC) [Ratio] 17.7 % High 11.6-14.8 [facility] Comment on above: Performed By: #### 4 [id number] ####[facility] [address] [place] [address] Glenn Gudino M.D. [id number] Hematocrit (Bld) [Volume fraction] 28.6 % Low 36.0-46.0 [facility] Comment on above: Performed By: #### 4 [id number] ####[facility] [address] [place] [address] Glenn Gudino M.D. [id number] Hemoglobin (Bld) [Mass/Vol] 8.6 g/dL Low 12.0-16.0 [facility] Comment on above: Performed By: #### 4 1518 ####[facility] [address] [place] [address] Glenn Gudino M.D. [id number] MCH (RBC) [Entitic mass] 27.3 pg Normal 26.0-34.0 [facility] Comment on above: Performed By: #### 4 [id number] ####[facility] [address] [place], [place] [address] Glenn Gudino M.D. [id number] MCV (RBC) [Entitic vol] 90.8 fL Normal 80.0-100.0 [facility] Comment on above: Performed By: #### 4 5214 ####[facility] [address] [place], [place] [address] Glenn Gudino M.D. [id number] MEAN CORPUSCULAR HEMOGLOBIN CONC 30.1 g/dL Low 31.0-37.0 [facility] Comment on above: Performed By: #### 4 5218 ####[facility] [address] [place] [address] 103[address]Karma Gudino M.D. [id number] Platelet mean volume (Bld) [Entitic vol] 9.6 fL Normal 9.4-12.4 [facility] Comment on above: Performed By: #### 4 [id number] ####[facility] [address] [place], [place] [address] Glenn Gudino M.D. [id number] Platelets (Bld) [#/Vol] 390 10*3/uL Normal 150-400 [facility] Comment on above: Performed By: #### 4 [id number] ####[facility] [address] [place], [place] [address] Glenn Gudino M.D. [id number] RBC (Bld) [#/Vol] 3.15 10*6/uL Low 4.00-5.20 [facility] Comment on above: Performed By: #### 4 5218 ####[facility] [address] [place], [place] [address] Glenn Gudino M.D. [id number] WBC (Bld) [#/Vol] 14.44 10*3/uL High 4.50-11.00 [facility] Comment on above: Performed By: #### 4 5218 ####[facility] [address] [place], [place] [address] Glenn Gudino M.D. [id number] HEPATIC FUNCTION PANELon Albumin [Mass/Vol] 2.2 g/dL Low 3.2-5.2 [facility] Comment on above: Performed By: #### 4 5866 ####[facility] [address] [place], [place] [address] Glenn Gudino M.D. [id number] ALP [Catalytic activity/Vol] 105 U/L Normal 40-150 [facility] Comment on above: Performed By: #### 4 5866 ####[facility] [address] [place] [address] Glenn Gudino M.D. [id number] ALT [Catalytic activity/Vol] 23 U/L Normal 0-35 U/L [facility] Comment on above: Performed By: #### 4 5866 ####[facility] [address] [place] [address] Glenn Gudino M.D. [id number] AST [Catalytic activity/Vol] 52 U/L High 0-35 U/L [facility] Comment on above: Performed By: #### 4 5866 ####[facility] [address] [place] [address] Glenn Gudino M.D. [id number] Bilirubin [Mass/Vol] 0.6 mg/dL Normal 0.0-1.3 [facility] Comment on above: Performed By: #### 4 5866 ####[facility] [address] [place] [address] Glenn Gudino M.D. [id number] Bilirubin.indirect [Mass/Vol] 0.2 mg/dL Normal 0.0-0.4 [facility] Comment on above: Performed By: #### 4 5866 ####[facility] [address] [place], [place] [address] Glenn Gudino M.D. [id number] Protein [Mass/Vol] 6.6 g/dL Normal 6.0-8.0 [facility] Comment on above: Performed By: #### 4 5866 ####[facility] [address] [place], [place] [address] Glenn Gudino M.D. [id number] MAGNESIUM LEVELon 10-17-2023 Magnesium [Mass/Vol] 2.0 mg/dL Normal 1.6-2.4 [facility] Comment on above: Performed By: #### 4 6109 ####[facility] [address] [place], [place] [address] Glenn Gudino M.D. [id number] PHOSPHORUSon 10-17-2023 Phosphate [Mass/Vol] 3.0 mg/dL Normal 2.8-4.1 [facility] Comment on above: Performed By: #### 4 6299 ####[facility] [address] [place] [address] Glenn Gudino M.D. [id number] PT/INRon 10-17-2023 INR Coag (PPP) [Relative time] 2.9 {INR} High 0.8-1.1 [facility] Comment on above: Order Comment: Jennifer retana the induction phase of oral anticoagulation, the INR may not reflect the anticoagulation status of the patient. Therapeutic ranges for INR's are:Most clinical situations: INR 2.0-3.0Mechanical Prosthetic Valve: INR 2.5-3.5Critical: INR >5.0 Performed By: #### 4 6391 ####[facility] [address] [place], [place] [address] Glenn Gudino M.D. [id number] PT Coag (PPP) [Time] 30.9 s High 11.8-14.3 [facility] Comment on above: Order Comment: Jennifer retana the induction phase of oral anticoagulation, the INR may not reflect the anticoagulation status of the patient. Therapeutic ranges for INR's are:Most clinical situations: INR 2.0-3.0Mechanical Prosthetic Valve: INR 2.5-3.5Critical: INR >5.0 Performed By: #### 4 6391 ####[facility] [address] [place], [place] [address] Glenn Gudino M.D. [id number] URINALYSISon 10-17-2023 BACTERIA, URINE Many Abnormal None Seen [facility] Comment on above: Order Comment: Micro scopic examination is performed on all urinalysis samples and only positive findings are reported. The test for blood on the chemical analytic portion of urinalysis may also be positive due to hemoglobinuria and myoglobinuria and if red blood cells are present they are quantified by microscopic examination. Performed By: #### 4 6625 ####[facility] [address] [place] [address] Glenn Gudino M.D. [id number] BILIRUBIN, URINE Negative Normal Negative [facility] Comment on above: Order Comment: Micro scopic examination is performed on all urinalysis samples and only positive findings are reported. The test for blood on the chemical analytic portion of urinalysis may also be positive due to hemoglobinuria and myoglobinuria and if red blood cells are present they are quantified by microscopic examination. Performed By: #### 4 6625 ####[facility] [address] [place] [address] Glenn Gduino M.D. [id number] BLOOD, URINE Small Abnormal Negative [facility] Comment on above: Order Comment: Micro scopic examination is performed on all urinalysis samples and only positive findings are reported. The test for blood on the chemical analytic portion of urinalysis may also be positive due to hemoglobinuria and myoglobinuria and if red blood cells are present they are quantified by microscopic examination. Performed By: #### 4 6625 ####[facility] [address] [place] [address] Glenn Gudino M.D. [id number] Clarity (U) Cloudy Abnormal Clear [facility] Comment on above: Order Comment: Micro scopic examination is performed on all urinalysis samples and only positive findings are reported. The test for blood on the chemical analytic portion of urinalysis may also be positive due to hemoglobinuria and myoglobinuria and if red blood cells are present they are quantified by microscopic examination. Performed By: #### 4 6625 ####[facility] [address] [place] [address] Glenn Gudino M.D. [id number] Color (U) Yellow Normal Colorless, Yellow [facility] Comment on above: Order Comment: Micro scopic examination is performed on all urinalysis samples and only positive findings are reported. The test for blood on the chemical analytic portion of urinalysis may also be positive due to hemoglobinuria and myoglobinuria and if red blood cells are present they are quantified by microscopic examination. Performed By: #### 4 6625 ####[facility] [address] [place] [address] Glenn Gudino M.D. [id number] Glucose Ql (U) Negative Normal Negative [facility] Comment on above: Order Comment: Micro scopic examination is performed on all urinalysis samples and only positive findings are reported. The test for blood on the chemical analytic portion of urinalysis may also be positive due to hemoglobinuria and myoglobinuria and if red blood cells are present they are quantified by microscopic examination. Performed By: #### 4 6625 ####[facility] [address] [place] [address] Glenn Gudino M.D. [id number] Hyaline casts LM Ql (Urine sed) 0-2 Normal 0-2 [facility] Comment on above: Order Comment: Micro scopic examination is performed on all urinalysis samples and only positive findings are reported. The test for blood on the chemical analytic portion of urinalysis may also be positive due to hemoglobinuria and myoglobinuria and if red blood cells are present they are quantified by microscopic examination. Performed By: #### 4 6625 ####[facility] [address] [place] [address] Glenn Gudino M.D. [id number] Ketones Ql (U) Negative Normal Negative [facility] Comment on above: Order Comment: Micro scopic examination is performed on all urinalysis samples and only positive findings are reported. The test for blood on the chemical analytic portion of urinalysis may also be positive due to hemoglobinuria and myoglobinuria and if red blood cells are present they are quantified by microscopic examination. Performed By: #### 4 6625 ####[facility] [address] [place] [address] Glenn Gudino M.D. [id number] Leukocyte esterase Test strip Ql (U) Large Abnormal Negative [facility] Comment on above: Order Comment: Micro scopic examination is performed on all urinalysis samples and only positive findings are reported. The test for blood on the chemical analytic portion of urinalysis may also be positive due to hemoglobinuria and myoglobinuria and if red blood cells are present they are quantified by microscopic examination. Performed By: #### 4 6625 ####[facility] [address] [place], [place] [address] Glenn Gudino M.D. [id number] MUCUS, URINE Rare Normal None Seen, Rare [facility] Comment on above: Order Comment: Micro scopic examination is performed on all urinalysis samples and only positive findings are reported. The test for blood on the chemical analytic portion of urinalysis may also be positive due to hemoglobinuria and myoglobinuria and if red blood cells are present they are quantified by microscopic examination. Performed By: #### 4 6625 ####[facility] [address] [place], [place] [address] Glenn Gudino M.D. [id number] NITRITE, URINE Negative Normal Negative [facility] Comment on above: Order Comment: Micro scopic examination is performed on all urinalysis samples and only positive findings are reported. The test for blood on the chemical analytic portion of urinalysis may also be positive due to hemoglobinuria and myoglobinuria and if red blood cells are present they are quantified by microscopic examination. Performed By: #### 4 6625 ####[facility] [address] [place] [address] Glenn Gudino M.D. [id number] pH (U) 6.0 [pH] Normal 5.0-7.0 [facility] Comment on above: Order Comment: Micro scopic examination is performed on all urinalysis samples and only positive findings are reported. The test for blood on the chemical analytic portion of urinalysis may also be positive due to hemoglobinuria and myoglobinuria and if red blood cells are present they are quantified by microscopic examination. Performed By: #### 4 6625 ####[facility] [address] [place] [address] Glenn Gudino M.D. [id number] Protein (U) [Mass/Vol] 30 mg/dL Abnormal Negative [facility] Comment on above: Order Comment: Micro [...] ammonium compounds. Performed By: #### 4 6625 ####[facility] [address] [place] [address] Glenn Gudino M.D. [id number] RBC LM.HPF (Urine sed) [#/Area] 7 /[HPF] High 0-3 [facility] Comment on above: Order Comment: Micro scopic examination is performed on all urinalysis samples and only positive findings are reported. The test for blood on the chemical analytic portion of urinalysis may also be positive due to hemoglobinuria and myoglobinuria and if red blood cells are present they are quantified by microscopic examination. Performed By: #### 4 6625 ####[facility] [address] [place] [address] Glenn Gudino M.D. [id number] Specific gravity (U) [Rel density] 1.027 High 1.005-1.02 5 [facility] Comment on above: Order Comment: Micro scopic examination is performed on all urinalysis samples and only positive findings are reported. The test for blood on the chemical analytic portion of urinalysis may also be positive due to hemoglobinuria and myoglobinuria and if red blood cells are present they are quantified by microscopic examination. Performed By: #### 4 6625 ####[facility] [address] [place] [address] Glenn Gudino M.D. [id number] SQUAMOUS EPITHELIAL 6 /hpf High 0-4 [facility] Comment on above: Order Comment: Micro scopic examination is performed on all urinalysis samples and only positive findings are reported. The test for blood on the chemical analytic portion of urinalysis may also be positive due to hemoglobinuria and myoglobinuria and if red blood cells are present they are quantified by microscopic examination. Performed By: #### 4 6625 ####[facility] [address] [place] [address] Glenn Gudino M.D. [id number] UROBILINOGEN, URINE <2.0 Normal <2.0 [facility] Comment on above: Order Comment: Micro scopic examination is performed on all urinalysis samples and only positive findings are reported. The test for blood on the chemical analytic portion of urinalysis may also be positive due to hemoglobinuria and myoglobinuria and if red blood cells are present they are quantified by microscopic examination. Performed By: #### 4 6625 ####[facility] [address] [place] [address] Glenn Gudino M.D. [id number] WBC LM.HPF (Urine sed) [#/Area] 55 /[HPF] High 0-5 [facility] Comment on above: Order Comment: Micro scopic examination is performed on all urinalysis samples and only positive findings are reported. The test for blood on the chemical analytic portion of urinalysis may also be positive due to hemoglobinuria and myoglobinuria and if red blood cells are present they are quantified by microscopic examination. Performed By: #### 4 6625 ####[facility] [address] [place], [place] [address] Glenn Gudino M.D. [id number] BASIC METABOLIC PANELon 05-2 0-2023 Anion gap [Moles/Vol] 17 mmol/L Normal 10-20 [facility] Comment on above: Order Comment: [facility] has implemented the eGFR calculation approach that does not have a coefficient for race that conforms to the NKF-ASN Task Force Recommendations. Performed By: #### 4 6124 ####[facility] [address] [place] [address] Glenn Gudino M.D. [id number] Calcium [Mass/Vol] 7.8 mg/dL Low 8.4-10.2 [facility] Comment on above: Order Comment: [facility] has implemented the eGFR calculation approach that does not have a coefficient for race that conforms to the NKF-ASN Task Force Recommendations. Performed By: #### 4 6124 ####[facility] [address] [place] [address] Glenn Gudino M.D. [id number] Chloride [Moles/Vol] 100 mmol/L Normal 98-108 [facility] Comment on above: Order Comment: [facility] has implemented the eGFR calculation approach that does not have a coefficient for race that conforms to the NKF-ASN Task Force Recommendations. Performed By: #### 4 6124 ####[facility] [address] [place] [address] Glenn Gudino M.D. [id number] Creatinine [Mass/Vol] 1.04 mg/dL Normal 0.60-1.10 [facility] Comment on above: Order Comment: [facility] has implemented the eGFR calculation approach that does not have a coefficient for race that conforms to the NKF-ASN Task Force Recommendations. Performed By: #### 4 6124 ####[facility] [address] [place] [address] Glenn Gudino M.D. [id number] EGFR 61 mL/min/1.73 m2 Normal >=60 [facility] Comment on above: Order Comment: [facility] has implemented the eGFR calculation approach that does not have a coefficient for race that conforms to the NKF-ASN Task Force Recommendations. Result Comment: Joi mated GFR was calculated using the 2020 CKD-EPI creatinine equation. Performed By: #### 4 6124 ####[facility] [address] [place] [address] Glenn Gudino M.D. [id number] Glucose [Mass/Vol] 73 mg/dL Normal 65-99 [facility] Comment on above: Order Comment: [facility] has implemented the eGFR calculation approach that does not have a coefficient for race that conforms to the NKF-ASN Task Force Recommendations. Performed By: #### 4 6124 ####[facility] [address] [place] [address] Glenn Gudino M.D. [id number] HCO3 (Bld) [Moles/Vol] 20 mmol/L Low 21-32 [facility] Comment on above: Order Comment: [facility] has implemented the eGFR calculation approach that does not have a coefficient for race that conforms to the NKF-ASN Task Force Recommendations. Performed By: #### 4 6124 ####[facility] [address] [place] [address] Glenn Gudino M.D. [id number] Potassium [Moles/Vol] 3.4 mmol/L Low 3.5-5.1 [facility] Comment on above: Order Comment: [facility] has implemented the eGFR calculation approach that does not have a coefficient for race that conforms to the NKF-ASN Task Force Recommendations. Performed By: #### 4 6124 ####[facility] [address] [place] [address] Glenn Gudino M.D. [id number] Sodium [Moles/Vol] 134 mmol/L Low 135-145 [facility] Comment on above: Order Comment: [facility] has implemented the eGFR calculation approach that does not have a coefficient for race that conforms to the NKF-ASN Task Force Recommendations. Performed By: #### 4 6124 ####[facility] [address] [place] [address] Glenn Gudino M.D. [id number] Urea nitrogen [Mass/Vol] 21 mg/dL Normal 8-25 [facility] Comment on above: Order Comment: [facility] has implemented the eGFR calculation approach that does not have a coefficient for race that conforms to the NKF-ASN Task Force Recommendations. Performed By: #### 4 6124 ####[facility] [address] [place] [address] Glenn Gudino M.D. [id number] Urea nitrogen/Creatinine [Mass ratio] 20.2 mg/mg High 10.0-20.0 [facility] Comment on above: Order Comment: [facility] has implemented the eGFR calculation approach that does not have a coefficient for race that conforms to the NKF-ASN Task Force Recommendations. Performed By: #### 4 6124 ####[facility] [address] [place] [address] Glenn Gudino M.D. [id number] CALCIUM, IONIZEDon CALCIUM IONIZED 4.4 mg/dL Low 4.5-5.3 [facility] Comment on above: Performed By: #### 4 5190 ####[facility] [address] [place] [address] Glenn Gudino M.D. [id number] CBCon 10-16-2023 AUTO NRBC 0.0 % Normal [facility] Comment on above: Performed By: #### 4 [id number] ####[facility] [address] [place] [address] Glenn Gudino M.D. [id number] AUTO NRBC ABS COUNT 0.00 K/mcL Normal 0.00-0.00 [facility] Comment on above: Performed By: #### 4 [id number] ####[facility] [address] [place] [address] Glenn Gudino M.D. [id number] Erythrocyte distribution width (RBC) [Ratio] 17.5 % High 11.6-14.8 [facility] Comment on above: Performed By: #### 4 5218 ####[facility] [address] [place], [place] [address] Glenn Gudino M.D. [id number] Hematocrit (Bld) [Volume fraction] 25.7 % Low 36.0-46.0 [facility] Comment on above: Performed By: #### 4 [id number] ####[facility] [address] [place], [place] [address] Glenn Gudino M.D. [id number] Hemoglobin (Bld) [Mass/Vol] 8.1 g/dL Low 12.0-16.0 [facility] Comment on above: Performed By: #### 4 5218 ####[facility] [address] [place], [place] [address] Glenn Gudino M.D. [id number] MCH (RBC) [Entitic mass] 27.7 pg Normal 26.0-34.0 [facility] Comment on above: Performed By: #### 4 [id number] ####[facility] [address] [place], [place] [address] Glenn Gudino M.D. [id number] MCV (RBC) [Entitic vol] 88.0 fL Normal 80.0-100.0 [facility] Comment on above: Performed By: #### 4 5218 ####[facility] [address] [address] [place], [place] [address] Glenn Gudino M.D. [id number] MEAN CORPUSCULAR HEMOGLOBIN CONC 31.5 g/dL Normal 31.0-37.0 [facility] Comment on above: Performed By: #### 4 0918 ####[facility] [address] [address]Karma Gudino M.D. [id number] Platelet mean volume (Bld) [Entitic vol] 9.2 fL Low 9.4-12.4 [facility] Comment on above: Performed By: #### 4 [id number] ####[facility] [address] [place], [place] [address] Glenn Gudino M.D. [id number] Platelets (Bld) [#/Vol] 441 10*3/uL High 150-400 [facility] Comment on above: Performed By: #### 4 [id number] ####[facility] [address] [place], [place] [address] Glenn Gudino M.D. [id number] RBC (Bld) [#/Vol] 2.92 10*6/uL Low 4.00-5.20 [facility] Comment on above: Performed By: #### 4 [id number] ####[facility] [address] [place], [place] [address] Glenn Gudino M.D. [id number] WBC (Bld) [#/Vol] 13.50 10*3/uL High 4.50-11.00 [facility] Comment on above: Performed By: #### 4 [id number] ####[facility] [address] [place], [place] [address]Karma Gudino M.D. [id number] HEPATIC FUNCTION PANELon Albumin [Mass/Vol] 2.1 g/dL Low 3.2-5.2 [facility] Comment on above: Performed By: #### 4 5866 ####[facility] [address] [place], [place] [address] Glenn Gudino M.D. [id number] ALP [Catalytic activity/Vol] 104 U/L Normal 40-150 [facility] Comment on above: Performed By: #### 4 5866 ####[facility] [address] [place], [place] [address] Glenn Gudino M.D. [id number] ALT [Catalytic activity/Vol] 22 U/L Normal 0-35 U/L [facility] Comment on above: Performed By: #### 4 5866 ####[facility] [address] [place] [address] Glenn Gudino M.D. [id number] AST [Catalytic activity/Vol] 51 U/L High 0-35 U/L [facility] Comment on above: Performed By: #### 4 5866 ####[facility] [address] [place], [place] [address] Glenn Gudino M.D. [id number] Bilirubin [Mass/Vol] 0.5 mg/dL Normal 0.0-1.3 [facility] Comment on above: Performed By: #### 4 5866 ####[facility] [address] [place], [place] [address] Glenn Gudino M.D. [id number] Bilirubin.indirect [Mass/Vol] 0.2 mg/dL Normal 0.0-0.4 [facility] Comment on above: Performed By: #### 4 5866 ####[facility] [address] [place], [place] [address] Glenn Gudino M.D. [id number] Protein [Mass/Vol] 6.3 g/dL Normal 6.0-8.0 [facility] Comment on above: Performed By: #### 4 5866 ####[facility] [address] [place], [place] [address] Glenn Gudino M.D. [id number] MAGNESIUM LEVELon 10-16-2023 Magnesium [Mass/Vol] 1.9 mg/dL Normal 1.6-2.4 [facility] Comment on above: Performed By: #### 4 6109 ####[facility] [address] [place] [address] Glenn Gudino M.D. [id number] PHOSPHORUSon 10-16-2023 Phosphate [Mass/Vol] 2.4 mg/dL Low 2.8-4.1 [facility] Comment on above: Performed By: #### 4 6299 ####[facility] [address] [place] [address] Glenn Gudino M.D. [id number] PT/INRon 10-16-2023 INR Coag (PPP) [Relative time] 3.1 {INR} High 0.8-1.1 [facility] Comment on above: Order Comment: Jennifer g the induction phase of oral anticoagulation, the INR may not reflect the anticoagulation status of the patient. Therapeutic ranges for INR's are:Most clinical situations: INR 2.0-3.0Mechanical Prosthetic Valve: INR 2.5-3.5Critical: INR >5.0 Performed By: #### 4 6391 ####[facility] [address] [place] [address] Glenn Gudino M.D. [id number] PT Coag (PPP) [Time] 32.2 s High 11.8-14.3 [facility] Comment on above: Order Comment: Jennifer retana the induction phase of oral anticoagulation, the INR may not reflect the anticoagulation status of the patient. Therapeutic ranges for INR's are:Most clinical situations: INR 2.0-3.0Mechanical Prosthetic Valve: INR 2.5-3.5Critical: INR >5.0 Performed By: #### 4 6391 ####[facility] [address] [place] [address] Glenn Gudino M.D. [id number] CALCIUM, IONIZEDon CALCIUM IONIZED 4.3 mg/dL Low 4.5-5.3 [facility] Comment on above: Performed By: #### 4 5190 ####[facility] [address] [place] [address] Glenn Gudino M.D. [id number] CBCon 10-15-2023 AUTO NRBC 0.0 % Normal [facility] Comment on above: Performed By: #### 4 5218 ####[facility] [address] [place] [address] Glenn Gudino M.D. [id number] AUTO NRBC ABS COUNT 0.00 K/mcL Normal 0.00-0.00 [facility] Comment on above: Performed By: #### 4 5218 ####[facility] [address] [place], [place] [address] Glenn Gudino M.D. [id number] Erythrocyte distribution width (RBC) [Ratio] 17.7 % High 11.6-14.8 [facility] Comment on above: Performed By: #### 4 5218 ####[facility] [address] [place] [address] Glenn Gudino M.D. [id number] Hematocrit (Bld) [Volume fraction] 28.4 % Low 36.0-46.0 [facility] Comment on above: Performed By: #### 4 5218 ####[facility] [address] [place], [place] [address]Karma Gudino M.D. [id number] Hemoglobin (Bld) [Mass/Vol] 8.6 g/dL Low 12.0-16.0 [facility] Comment on above: Performed By: #### 4 5218 ####[facility] [address] [place], [place] [address] Glenn Gudino M.D. [id number] MCH (RBC) [Entitic mass] 27.5 pg Normal 26.0-34.0 [facility] Comment on above: Performed By: #### 4 5225 ####[facility] [address] [place], [place] [address]Karma Gudino M.D. [id number] MCV (RBC) [Entitic vol] 90.7 fL Normal 80.0-100.0 [facility] Comment on above: Performed By: #### 4 5218 ####[facility] [address] [place], [place] [address] Glenn Gudino M.D. [id number] MEAN CORPUSCULAR HEMOGLOBIN CONC 30.3 g/dL Low 31.0-37.0 [facility] Comment on above: Performed By: #### 4 5218 ####[facility] [address] [place], [place] [address] Glenn Gudino M.D. [id number] Platelet mean volume (Bld) [Entitic vol] 9.8 fL Normal 9.4-12.4 [facility] Comment on above: Performed By: #### 4 5218 ####[facility] [address] [place] [address] Glenn Gudino M.D. [id number] Platelets (Bld) [#/Vol] 378 10*3/uL Normal 150-400 [facility] Comment on above: Performed By: #### 4 5218 ####[facility] [address] [place], [place] [address] Glenn Gudino M.D. [id number] RBC (Bld) [#/Vol] 3.13 10*6/uL Low 4.00-5.20 [facility] Comment on above: Performed By: #### 4 5218 ####[facility] [address] [place] [address] Glenn Gudino M.D. [id number] WBC (Bld) [#/Vol] 12.92 10*3/uL High 4.50-11.00 [facility] Comment on above: Performed By: #### 4 5218 ####[facility] [address] [place], [place] [address] Glenn Gudino M.D. [id number] HEPATIC FUNCTION PANELon Albumin [Mass/Vol] 2.2 g/dL Low 3.2-5.2 [facility] Comment on above: Performed By: #### 4 5866 ####[facility] [address] [place] [address] Glenn Gudino M.D. [id number] ALP [Catalytic activity/Vol] 100 U/L Normal 40-150 [facility] Comment on above: Performed By: #### 4 5866 ####[facility] [address] [place] [address] Glenn Gudino M.D. [id number] ALT [Catalytic activity/Vol] 28 U/L Normal 0-35 U/L [facility] Comment on above: Performed By: #### 4 5866 ####[facility] [address] [place] [address] Glenn Gudino M.D. [id number] AST [Catalytic activity/Vol] 52 U/L High 0-35 U/L [facility] Comment on above: Performed By: #### 4 5866 ####[facility] [address] [place], [place] [address] Glenn Gudino M.D. [id number] Bilirubin [Mass/Vol] 0.5 mg/dL Normal 0.0-1.3 [facility] Comment on above: Performed By: #### 4 5866 ####[facility] [address] [place], [place] [address] Glenn Gudino M.D. [id number] Bilirubin.indirect [Mass/Vol] 0.2 mg/dL Normal 0.0-0.4 [facility] Comment on above: Performed By: #### 4 5866 ####[facility] [address] [place], [place] [address] Glenn Gudino M.D. [id number] Protein [Mass/Vol] 6.1 g/dL Normal 6.0-8.0 [facility] Comment on above: Performed By: #### 4 5866 ####[facility] [address] [place] [address] Glenn Gudino M.D. [id number] MAGNESIUM LEVELon 10-15-2023 Magnesium [Mass/Vol] 1.8 mg/dL Normal 1.6-2.4 [facility] Comment on above: Performed By: #### 4 6109 ####[facility] [address] [place] [address] Glenn Gudino M.D. [id number] PHOSPHORUSon 10-15-2023 Phosphate [Mass/Vol] 2.8 mg/dL Normal 2.8-4.1 [facility] Comment on above: Performed By: #### 4 6299 ####[facility] [address] [place] [address] Glenn Gudino M.D. [id number] PT/INRon 10-15-2023 INR Coag (PPP) [Relative time] 2.9 {INR} High 0.8-1.1 [facility] Comment on above: Order Comment: Jennifer retana the induction phase of oral anticoagulation, the INR may not reflect the anticoagulation status of the patient. Therapeutic ranges for INR's are:Most clinical situations: INR 2.0-3.0Mechanical Prosthetic Valve: INR 2.5-3.5Critical: INR >5.0 Performed By: #### 4 6391 ####[facility] [address] [place], [place] [address] Glenn Gudino M.D. [id number] PT Coag (PPP) [Time] 30.5 s High 11.8-14.3 [facility] Comment on above: Order Comment: Jennifer retana the induction phase of oral anticoagulation, the INR may not reflect the anticoagulation status of the patient. Therapeutic ranges for INR's are:Most clinical situations: INR 2.0-3.0Mechanical Prosthetic Valve: INR 2.5-3.5Critical: INR >5.0 Performed By: #### 4 6391 ####[facility] [address] [place] [address] Glenn Gudino M.D. [id number] CALCIUM, IONIZEDon CALCIUM IONIZED 4.4 mg/dL Low 4.5-5.3 [facility] Comment on above: Performed By: #### 4 5190 ####[facility] [address] [place] [address] Glenn Gudino M.D. [id number] CBCon 10-14-2023 AUTO NRBC 0.0 % Normal [facility] Comment on above: Performed By: #### 4 5218 ####[facility] [address] [place], [place] [address] Glenn Gudino M.D. [id number] AUTO NRBC ABS COUNT 0.00 K/mcL Normal 0.00-0.00 [facility] Comment on above: Performed By: #### 4 5218 ####[facility] [address] [place], [place] [address] Glenn Gudino M.D. [id number] Erythrocyte distribution width (RBC) [Ratio] 17.5 % High 11.6-14.8 [facility] Comment on above: Performed By: #### 4 5218 ####[facility] [address] [place], [place] [address] Glenn Gudino M.D. [id number] Hematocrit (Bld) [Volume fraction] 26.1 % Low 36.0-46.0 [facility] Comment on above: Performed By: #### 4 5218 ####[facility] [address] [place], [place] [address] Glenn Gudino M.D. [id number] Hemoglobin (Bld) [Mass/Vol] 8.5 g/dL Low 12.0-16.0 [facility] Comment on above: Performed By: #### 4 5218 ####[facility] [address] [place], [place] [address] Glenn Gudino M.D. [id number] MCH (RBC) [Entitic mass] 28.0 pg Normal 26.0-34.0 [facility] Comment on above: Performed By: #### 4 5218 ####[facility] [address] [place] [address] Glenn Gudino M.D. [id number] MCV (RBC) [Entitic vol] 85.9 fL Normal 80.0-100.0 [facility] Comment on above: Performed By: #### 4 5218 ####[facility] [address] [place] [address] Glenn Gudino M.D. [id number] MEAN CORPUSCULAR HEMOGLOBIN CONC 32.6 g/dL Normal 31.0-37.0 [facility] Comment on above: Performed By: #### 4 5218 ####[facility] [address] [place], [place] [address] Glenn Gudino M.D. [id number] Platelet mean volume (Bld) [Entitic vol] 9.3 fL Low 9.4-12.4 [facility] Comment on above: Performed By: #### 4 5218 ####[facility] [address] [place] [address] Glenn Gudino M.D. [id number] Platelets (Bld) [#/Vol] 365 10*3/uL Normal 150-400 [facility] Comment on above: Performed By: #### 4 5218 ####[facility] [address] [place], [place] [address] Glenn Gudino M.D. [id number] RBC (Bld) [#/Vol] 3.04 10*6/uL Low 4.00-5.20 [facility] Comment on above: Performed By: #### 4 5218 ####[facility] [address] [place] [address] Glenn Gudino M.D. [id number] WBC (Bld) [#/Vol] 15.87 10*3/uL High 4.50-11.00 [facility] Comment on above: Performed By: #### 4 5218 ####[facility] [address] [place] [address] Glenn Gudino M.D. [id number] CLOSTRIDIOIDES DIFFICILE MENG TINGon 10-14-2023 CLOSTRIDIOIDES DIFFICILE TESTING Not detected Normal Not Detected [facility] Comment on above: Performed By: #### 4 8543 ####[facility] [address] [place], [place] [address] Glenn Gudino M.D. [id number] HEPATIC FUNCTION PANELon Albumin [Mass/Vol] 2.4 g/dL Low 3.2-5.2 [facility] Comment on above: Performed By: #### 4 5866 ####[facility] [address] [place], [place] [address] Glenn Gudino M.D. [id number] ALP [Catalytic activity/Vol] 97 U/L Normal 40-150 [facility] Comment on above: Performed By: #### 4 5866 ####[facility] [address] [place] [address] Glenn Gudino M.D. [id number] ALT [Catalytic activity/Vol] 31 U/L Normal 0-35 U/L [facility] Comment on above: Performed By: #### 4 5866 ####[facility] [address] [place], [place] [address] Glenn Gudino M.D. [id number] AST [Catalytic activity/Vol] 56 U/L High 0-35 U/L [facility] Comment on above: Performed By: #### 4 5866 ####[facility] [address] [place], [place] [address] Glenn Gudino M.D. [id number] Bilirubin [Mass/Vol] 0.6 mg/dL Normal 0.0-1.3 [facility] Comment on above: Performed By: #### 4 5866 ####[facility] [address] [place] [address] Glenn Gudino M.D. [id number] Bilirubin.indirect [Mass/Vol] 0.3 mg/dL Normal 0.0-0.4 [facility] Comment on above: Performed By: #### 4 5866 ####[facility] [address] [place] [address] Glenn Gudino M.D. [id number] Protein [Mass/Vol] 6.3 g/dL Normal 6.0-8.0 [facility] Comment on above: Performed By: #### 4 5866 ####[facility] [address] [place], [place] [address] Glenn Gudino M.D. [id number] MAGNESIUM LEVELon 10-14-2023 Magnesium [Mass/Vol] 1.9 mg/dL Normal 1.6-2.4 [facility] Comment on above: Performed By: #### 4 6109 ####[facility] [address] [place], [place] [address] Glenn Gudino M.D. [id number] PHOSPHORUSon 10-14-2023 Phosphate [Mass/Vol] 3.0 mg/dL Normal 2.8-4.1 [facility] Comment on above: Performed By: #### 4 6299 ####[facility] [address] [place], [place] [address] Glenn Gudino M.D. [id number] POC GLUCOSE - [facility] 024 Glucose [Mass/Vol] 105 mg/dL High 65-99 [facility] Comment on above: Performed By: #### 4 6932 ####[facility] [address] [place] [address] [id number] [facility] Glucose [Mass/Vol] 98 mg/dL Normal 65-99 [facility] Comment on above: Performed By: #### 4 6932 ####[facility] [address] [place] [address] [id number] [facility] Glucose [Mass/Vol] 82 mg/dL Normal 65-99 [facility] Comment on above: Performed By: #### 4 6932 ####[facility] [address] [place] [address] [id number] [facility] Glucose [Mass/Vol] 93 mg/dL Normal 65-99 [facility] Comment on above: Performed By: #### 4 6932 ####[facility] [address] [place] [address] [id number] [facility] Glucose [Mass/Vol] 93 mg/dL Normal 65-99 [facility] Comment on above: Performed By: #### 4 6932 ####[facility] [address] [place] [address] [id number] [facility] PT/INRon 10-14-2023 INR Coag (PPP) [Relative time] 2.6 {INR} High 0.8-1.1 [facility] Comment on above: Order Comment: Jennifer retana the induction phase of oral anticoagulation, the INR may not reflect the anticoagulation status of the patient. Therapeutic ranges for INR's are:Most clinical situations: INR 2.0-3.0Mechanical Prosthetic Valve: INR 2.5-3.5Critical: INR >5.0 Performed By: #### 4 6391 ####[facility] [address] [place] [address] Glenn Gudino M.D. [id number] PT Coag (PPP) [Time] 28.0 s High 11.8-14.3 [facility] Comment on above: Order Comment: Jennifer retana the induction phase of oral anticoagulation, the INR may not reflect the anticoagulation status of the patient. Therapeutic ranges for INR's are:Most clinical situations: INR 2.0-3.0Mechanical Prosthetic Valve: INR 2.5-3.5Critical: INR >5.0 Performed By: #### 4 6391 ####[facility] [address] [place] [address] Glenn Gudino M.D. [id number] BASIC METABOLIC PANELon 09-26 Anion gap [Moles/Vol] 15 mmol/L Normal 10-20 [facility] Comment on above: Order Comment: [facility] has implemented the eGFR calculation approach that does not have a coefficient for race that conforms to the NKF-ASN Task Force Recommendations. Performed By: #### 4 6124 ####[facility] [address] [place], [place] [address] Glenn Gudino M.D. [id number] Calcium [Mass/Vol] 7.8 mg/dL Low 8.4-10.2 [facility] Comment on above: Order Comment: [facility] has implemented the eGFR calculation approach that does not have a coefficient for race that conforms to the NKF-ASN Task Force Recommendations. Performed By: #### 4 6124 ####[facility] [address] [place], [place] [address] Glenn Gudino M.D. [id number] Chloride [Moles/Vol] 98 mmol/L Normal 98-108 [facility] Comment on above: Order Comment: [facility] has implemented the eGFR calculation approach that does not have a coefficient for race that conforms to the NKF-ASN Task Force Recommendations. Performed By: #### 4 6124 ####[facility] [address] [place], [place] [address] Glenn Gudino M.D. [id number] Creatinine [Mass/Vol] 1.14 mg/dL Normal 0.60-1.10 [facility] Comment on above: Order Comment: [facility] has implemented the eGFR calculation approach that does not have a coefficient for race that conforms to the NKF-ASN Task Force Recommendations. Performed By: #### 4 6124 ####[facility] [address] [place] [address] Glenn Gudino M.D. [id number] EGFR 55 mL/min/1.73 m2 Low >=60 [facility] Comment on above: Order Comment: [facility] has implemented the eGFR calculation approach that does not have a coefficient for race that conforms to the NKF-ASN Task Force Recommendations. Result Comment: Joi mated GFR was calculated using the 2020 CKD-EPI creatinine equation. Performed By: #### 4 6124 ####[facility] [address] [place] [address] Glenn uGdino M.D. [id number] Glucose [Mass/Vol] 83 mg/dL Normal 65-99 [facility] Comment on above: Order Comment: [facility] has implemented the eGFR calculation approach that does not have a coefficient for race that conforms to the NKF-ASN Task Force Recommendations. Performed By: #### 4 6124 ####[facility] [address] [place] [address] Glenn Gudino M.D. [id number] HCO3 (Bld) [Moles/Vol] 25 mmol/L Normal 21-32 [facility] Comment on above: Order Comment: [facility] has implemented the eGFR calculation approach that does not have a coefficient for race that conforms to the NKF-ASN Task Force Recommendations. Performed By: #### 4 6124 ####[facility] [address] [place] [address] Glenn Gudino M.D. [id number] Potassium [Moles/Vol] 3.9 mmol/L Normal 3.5-5.1 [facility] Comment on above: Order Comment: [facility] has implemented the eGFR calculation approach that does not have a coefficient for race that conforms to the NKF-ASN Task Force Recommendations. Performed By: #### 4 6124 ####[facility] [address] [place] [address] Glenn Gudino M.D. [id number] Sodium [Moles/Vol] 134 mmol/L Low 135-145 [facility] Comment on above: Order Comment: [facility] has implemented the eGFR calculation approach that does not have a coefficient for race that conforms to the NKF-ASN Task Force Recommendations. Performed By: #### 4 6124 ####[facility] [address] [place], [place] [address] Glenn Gudino M.D. [id number] Urea nitrogen [Mass/Vol] 28 mg/dL High 8-25 [facility] Comment on above: Order Comment: [facility] has implemented the eGFR calculation approach that does not have a coefficient for race that conforms to the NKF-ASN Task Force Recommendations. Performed By: #### 4 6124 ####[facility] [address] [place], [place] [address] Glenn Gudino M.D. [id number] Urea nitrogen/Creatinine [Mass ratio] 24.6 mg/mg High 10.0-20.0 [facility] Comment on above: Order Comment: [facility] has implemented the eGFR calculation approach that does not have a coefficient for race that conforms to the NKF-ASN Task Force Recommendations. Performed By: #### 4 6130 ####[facility] [address] [place] [address] Glenn Gudino M.D. [id number] CALCIUM, IONIZEDon 4 CALCIUM IONIZED 4.3 mg/dL Low 4.5-5.3 [facility] Comment on above: Performed By: #### 4 5190 ####[facility] [address] [place] [address] Glenn Gudino M.D. [id number] CBCon 10-13-2023 AUTO NRBC 0.0 % Normal [facility] Comment on above: Performed By: #### 4 [id number] ####[facility] [address] [place], [place] [address] Glenn Gudino M.D. [id number] AUTO NRBC ABS COUNT 0.00 K/mcL Normal 0.00-0.00 [facility] Comment on above: Performed By: #### 4 5218 ####[facility] [address] [place], [place] [address] Glenn Gduino M.D. [id number] Erythrocyte distribution width (RBC) [Ratio] 17.2 % High 11.6-14.8 [facility] Comment on above: Performed By: #### 4 5218 ####[facility] [address] [place], [place] [address] Glenn Gudino M.D. [id number] Hematocrit (Bld) [Volume fraction] 26.4 % Low 36.0-46.0 [facility] Comment on above: Performed By: #### 4 5218 ####[facility] [facility] [address] [place], [place] [address] Glenn Gudino M.D. [id number] Hemoglobin (Bld) [Mass/Vol] 8.7 g/dL Low 12.0-16.0 [facility] Comment on above: Performed By: #### 4 [id number] ####[facility] [address] [place], [place] [address] Glenn Gudino M.D. [id number] MCH (RBC) [Entitic mass] 27.9 pg Normal 26.0-34.0 [facility] Comment on above: Performed By: #### 4 [id number] ####[facility] [address] [id number] Glenn Gudino M.D. [id number] MCV (RBC) [Entitic vol] 84.6 fL Normal 80.0-100.0 [facility] Comment on above: Performed By: #### 4 [id number] ####[facility] [address] [place] [address] Glenn Gudino M.D. [id number] MEAN CORPUSCULAR HEMOGLOBIN CONC 33.0 g/dL Normal 31.0-37.0 [facility] Comment on above: Performed By: #### 4 [id number] ####[facility] [address] [place] [address] Glenn Gudino M.D. [id number] Platelet mean volume (Bld) [Entitic vol] 9.6 fL Normal 9.4-12.4 [facility] Comment on above: Performed By: #### 4 [id number] ####[facility] [address] [place], [place] [address] Glenn Gudino M.D. [id number] Platelets (Bld) [#/Vol] 362 10*3/uL Normal 150-400 [facility] Comment on above: Performed By: #### 4 [id number] ####[facility] [address] [place], [place] [address] Glenn Gudino M.D. [id number] RBC (Bld) [#/Vol] 3.12 10*6/uL Low 4.00-5.20 [facility] Comment on above: Performed By: #### 4 [id number] ####[facility] [address] [place], [place] [address] Glenn Gudino M.D. [id number] WBC (Bld) [#/Vol] 15.99 10*3/uL High 4.50-11.00 [facility] Comment on above: Performed By: #### 4 [id number] ####[facility] [address] [place], [place] [address] Glenn Gudino M.D. [id number] CORTISOL, Víctor 10-13-2023 CORTISOL - AM 24.1 mcg/dL Normal 5.0-25.0 [facility] Comment on above: Order Comment: Needs to be drawn at 8 am Performed By: #### 4 6853 ####[facility] [address] [place] [address] Glenn Gudino M.D. [id number] HEPATIC FUNCTION PANELon Albumin [Mass/Vol] 2.4 g/dL Low 3.2-5.2 [facility] Comment on above: Performed By: #### 4 5866 ####[facility] [address] [place], [place] [address] Glenn Gudino M.D. [id number] ALP [Catalytic activity/Vol] 85 U/L Normal 40-150 [facility] Comment on above: Performed By: #### 4 5866 ####[facility] [address] [place], [place] [address] Glenn Gudino M.D. [id number] ALT [Catalytic activity/Vol] 27 U/L Normal 0-35 U/L [facility] Comment on above: Performed By: #### 4 5866 ####[facility] [address] [place], [place] [address] Glenn Gudino M.D. [id number] AST [Catalytic activity/Vol] 49 U/L High 0-35 U/L [facility] Comment on above: Performed By: #### 4 5852 ####[facility] [address] [place], [place] [address] Glenn Gudino M.D. [id number] Bilirubin [Mass/Vol] 0.5 mg/dL Normal 0.0-1.3 [facility] Comment on above: Performed By: #### 4 5866 ####[facility] [address] [place], [place] [address] Glenn Gudino M.D. [id number] Bilirubin.indirect [Mass/Vol] 0.2 mg/dL Normal 0.0-0.4 [facility] Comment on above: Performed By: #### 4 5866 ####[facility] [address] [place] [address] Glenn Gudino M.D. [id number] Protein [Mass/Vol] 6.4 g/dL Normal 6.0-8.0 [facility] Comment on above: Performed By: #### 4 5866 ####[facility] [address] [place] [address] Glenn Gudino M.D. [id number] MAGNESIUM LEVELon 10-13-2023 Magnesium [Mass/Vol] 1.8 mg/dL Normal 1.6-2.4 [facility] Comment on above: Performed By: #### 4 6109 ####[facility] [address] [place] [address] Glenn Gudino M.D. [id number] PHOSPHORUSon 10-13-2023 Phosphate [Mass/Vol] 2.3 mg/dL Low 2.8-4.1 [facility] Comment on above: Performed By: #### 4 6299 ####[facility] [address] [place] [address] Glenn Gudino M.D. [id number] [facility] Glucose [Mass/Vol] 92 mg/dL Normal 65-99 [facility] Comment on above: Performed By: #### 4 6505 ####[facility] [address] [place] [address] [id number] [facility] Glucose [Mass/Vol] 98 mg/dL Normal 65-99 [facility] Comment on above: Performed By: #### 4 5394 ####[facility] [address] [place] [address] [id number] [facility] Glucose [Mass/Vol] 105 mg/dL High 65-99 [facility] Comment on above: Performed By: #### 4 6932 ####[facility] [address] [place] [address] [id number] [facility] Glucose [Mass/Vol] 107 mg/dL High 65-99 [facility] Comment on above: Performed By: #### 4 6932 ####[facility] [address] [place] [address] [id number] [facility] Glucose [Mass/Vol] 95 mg/dL Normal 65-99 [facility] Comment on above: Performed By: #### 4 6932 ####[facility] [address] [place] [address] [id number] [facility] Glucose [Mass/Vol] 99 mg/dL Normal 65-99 [facility] Comment on above: Performed By: #### 4 6932 ####[facility] [address] [place] [address] [id number] [facility] PT/INRon 10-13-2023 INR Coag (PPP) [Relative time] 1.9 {INR} High 0.8-1.1 [facility] Comment on above: Order Comment: Jennifer retana the induction phase of oral anticoagulation, the INR may not reflect the anticoagulation status of the patient. Therapeutic ranges for INR's are:Most clinical situations: INR 2.0-3.0Mechanical Prosthetic Valve: INR 2.5-3.5Critical: INR >5.0 Performed By: #### 4 6391 ####[facility] [address] [place] [address] Glenn Gudino M.D. [id number] PT Coag (PPP) [Time] 22.3 s High 11.8-14.3 [facility] Comment on above: Order Comment: Jennifer retana the induction phase of oral anticoagulation, the INR may not reflect the anticoagulation status of the patient. Therapeutic ranges for INR's are:Most clinical situations: INR 2.0-3.0Mechanical Prosthetic Valve: INR 2.5-3.5Critical: INR >5.0 Result Comment: Resu lts checked. Performed By: #### 4 6391 ####[facility] [address] [place], [place] [address] Glenn Gudino M.D. [id number] BASIC METABOLIC PANELon 05- Anion gap [Moles/Vol] 18 mmol/L Normal 10-20 [facility] Comment on above: Order Comment: [facility] has implemented the eGFR calculation approach that does not have a coefficient for race that conforms to the NKF-ASN Task Force Recommendations. Performed By: #### 4 6124 ####[facility] [address] [place] [address] Glenn Gudino M.D. [id number] Calcium [Mass/Vol] 7.7 mg/dL Low 8.4-10.2 [facility] Comment on above: Order Comment: [facility] has implemented the eGFR calculation approach that does not have a coefficient for race that conforms to the NKF-ASN Task Force Recommendations. Performed By: #### 4 6124 ####[facility] [address] [place] [address] Glenn Gudino M.D. [id number] Chloride [Moles/Vol] 98 mmol/L Normal 98-108 [facility] Comment on above: Order Comment: [facility] has implemented the eGFR calculation approach that does not have a coefficient for race that conforms to the NKF-ASN Task Force Recommendations. Performed By: #### 4 6124 ####[facility] [address] [place] [address] Glenn Gudino M.D. [id number] Creatinine [Mass/Vol] 1.35 mg/dL High 0.60-1.10 [facility] Comment on above: Order Comment: [facility] has implemented the eGFR calculation approach that does not have a coefficient for race that conforms to the NKF-ASN Task Force Recommendations. Performed By: #### 4 6124 ####[facility] [address] [place] [address] Glenn Gudino M.D. [id number] EGFR 45 mL/min/1.73 m2 Low >=60 [facility] Comment on above: Order Comment: [facility] has implemented the eGFR calculation approach that does not have a coefficient for race that conforms to the NKF-ASN Task Force Recommendations. Result Comment: Joi mated GFR was calculated using the 2020 CKD-EPI creatinine equation. Performed By: #### 4 6124 ####[facility] [address] [place] [address] Glenn Gudino M.D. [id number] Glucose [Mass/Vol] 202 mg/dL High 65-99 [facility] Comment on above: Order Comment: [facility] has implemented the eGFR calculation approach that does not have a coefficient for race that conforms to the NKF-ASN Task Force Recommendations. Performed By: #### 4 6124 ####[facility] [address] [place] [address] Glenn Gudino M.D. [id number] HCO3 (Bld) [Moles/Vol] 21 mmol/L Normal 21-32 [facility] Comment on above: Order Comment: [facility] has implemented the eGFR calculation approach that does not have a coefficient for race that conforms to the NKF-ASN Task Force Recommendations. Performed By: #### 4 6124 ####[facility] [address] [place] [address] Glenn Gudino M.D. [id number] Potassium [Moles/Vol] 3.9 mmol/L Normal 3.5-5.1 [facility] Comment on above: Order Comment: [facility] has implemented the eGFR calculation approach that does not have a coefficient for race that conforms to the NKF-ASN Task Force Recommendations. Performed By: #### 4 6124 ####[facility] [address] [place] [address] Glenn Gudino M.D. [id number] Sodium [Moles/Vol] 133 mmol/L Low 135-145 [facility] Comment on above: Order Comment: [facility] has implemented the eGFR calculation approach that does not have a coefficient for race that conforms to the NKF-ASN Task Force Recommendations. Performed By: #### 4 6124 ####[facility] [address] [place] [address] Glenn Gudino M.D. [id number] Urea nitrogen [Mass/Vol] 33 mg/dL High 8-25 [facility] Comment on above: Order Comment: [facility] has implemented the eGFR calculation approach that does not have a coefficient for race that conforms to the NKF-ASN Task Force Recommendations. Performed By: #### 4 6124 ####[facility] [address] [place] [address] Glenn Gudino M.D. [id number] Urea nitrogen/Creatinine [Mass ratio] 24.4 mg/mg High 10.0-20.0 [facility] Comment on above: Order Comment: [facility] has implemented the eGFR calculation approach that does not have a coefficient for race that conforms to the NKF-ASN Task Force Recommendations. Performed By: #### 4 6124 ####[facility] [address] [place] [address] Glenn Gudino M.D. [id number] Anion gap [Moles/Vol] 14 mmol/L Normal 10-20 [facility] Comment on above: Order Comment: [facility] has implemented the eGFR calculation approach that does not have a coefficient for race that conforms to the NKF-ASN Task Force Recommendations. Performed By: #### 4 6124 ####[facility] [address] [place] [address] Glenn Gudino M.D. [id number] Calcium [Mass/Vol] 8.0 mg/dL Low 8.4-10.2 [facility] Comment on above: Order Comment: [facility] has implemented the eGFR calculation approach that does not have a coefficient for race that conforms to the NKF-ASN Task Force Recommendations. Performed By: #### 4 6124 ####[facility] [address] [place] [address] Glenn Gudino M.D. [id number] Chloride [Moles/Vol] 100 mmol/L Normal 98-108 [facility] Comment on above: Order Comment: [facility] has implemented the eGFR calculation approach that does not have a coefficient for race that conforms to the NKF-ASN Task Force Recommendations. Performed By: #### 4 6124 ####[facility] [address] [place], [place] [address] Glenn Gudino M.D. [id number] Creatinine [Mass/Vol] 1.24 mg/dL High 0.60-1.10 [facility] Comment on above: Order Comment: [facility] has implemented the eGFR calculation approach that does not have a coefficient for race that conforms to the NKF-ASN Task Force Recommendations. Performed By: #### 4 6124 ####[facility] [address] [place] [address] Glenn Gudino M.D. [id number] EGFR 50 mL/min/1.73 m2 Low >=60 [facility] Comment on above: Order Comment: [facility] has implemented the eGFR calculation approach that does not have a coefficient for race that conforms to the NKF-ASN Task Force Recommendations. Result Comment: Joi mated GFR was calculated using the 2020 CKD-EPI creatinine equation. Performed By: #### 4 6124 ####[facility] [address] [place] [address] Glenn Gudino M.D. [id number] Glucose [Mass/Vol] 84 mg/dL Normal 65-99 [facility] Comment on above: Order Comment: [facility] has implemented the eGFR calculation approach that does not have a coefficient for race that conforms to the NKF-ASN Task Force Recommendations. Performed By: #### 4 6124 ####[facility] [address] [place] [address] Glenn Gudino M.D. [id number] HCO3 (Bld) [Moles/Vol] 25 mmol/L Normal 21-32 [facility] Comment on above: Order Comment: [facility] has implemented the eGFR calculation approach that does not have a coefficient for race that conforms to the NKF-ASN Task Force Recommendations. Performed By: #### 4 6124 ####[facility] [address] [place], [place] [address] Glenn Gudino M.D. [id number] Potassium [Moles/Vol] 4.1 mmol/L Normal 3.5-5.1 [facility] Comment on above: Order Comment: [facility] has implemented the eGFR calculation approach that does not have a coefficient for race that conforms to the NKF-ASN Task Force Recommendations. Performed By: #### 4 6124 ####[facility] [address] [place] [address] Glenn Gudino M.D. [id number] Sodium [Moles/Vol] 135 mmol/L Normal 135-145 [facility] Comment on above: Order Comment: [facility] has implemented the eGFR calculation approach that does not have a coefficient for race that conforms to the NKF-ASN Task Force Recommendations. Performed By: #### 4 6122 ####[facility] [address] [place] [address] Glenn Gudino M.D. [id number] Urea nitrogen [Mass/Vol] 33 mg/dL High 8-25 [facility] Comment on above: Order Comment: [facility] has implemented the eGFR calculation approach that does not have a coefficient for race that conforms to the NKF-ASN Task Force Recommendations. Performed By: #### 4 6124 ####[facility] [address] [place] [address] Glenn Gudino M.D. [id number] Urea nitrogen/Creatinine [Mass ratio] 26.6 mg/mg High 10.0-20.0 [facility] Comment on above: Order Comment: [facility] has implemented the eGFR calculation approach that does not have a coefficient for race that conforms to the NKF-ASN Task Force Recommendations. Performed By: #### 4 6124 ####[facility] [address] [place], [place] [address] Glenn Gudino M.D. [id number] CALCIUM, IONIZEDon CALCIUM IONIZED 4.5 mg/dL Normal 4.5-5.3 [facility] Comment on above: Performed By: #### 4 5190 ####[facility] [address] [place] [address] Glenn Gudino M.D. [id number] CBCon 10-12-2023 AUTO NRBC 0.0 % Normal [facility] Comment on above: Performed By: #### 4 [id number] ####[facility] [address] [place] [address] Glenn Gudino M.D. [id number] AUTO NRBC ABS COUNT 0.00 K/mcL Normal 0.00-0.00 [facility] Comment on above: Performed By: #### 4 5218 ####[facility] [address] [place] [address]26 Glenn Gudino M.D. [id number] Erythrocyte distribution width (RBC) [Ratio] 17.1 % High 11.6-14.8 [facility] Comment on above: Performed By: #### 4 5218 ####[facility] [address] [place] [address] Glenn Gudino M.D. [id number] Hematocrit (Bld) [Volume fraction] 25.6 % Low 36.0-46.0 [facility] Comment on above: Performed By: #### 4 5218 ####[facility] [address] [place] [address] Glenn Gudino M.D. [id number] Hemoglobin (Bld) [Mass/Vol] 8.2 g/dL Low 12.0-16.0 [facility] Comment on above: Performed By: #### 4 5218 ####[facility] [address] [place] [address] Glenn Gudino M.D. [id number] MCH (RBC) [Entitic mass] 27.2 pg Normal 26.0-34.0 [facility] Comment on above: Performed By: #### 4 5218 ####[facility] [address] [place] [address] Glenn Gudino M.D. [id number] MCV (RBC) [Entitic vol] 84.8 fL Normal 80.0-100.0 [facility] Comment on above: Performed By: #### 4 5218 ####[facility] [address] [place] [address] Glenn Gudino M.D. [id number] MEAN CORPUSCULAR HEMOGLOBIN CONC 32.0 g/dL Normal 31.0-37.0 [facility] Comment on above: Performed By: #### 4 5218 ####[facility] [address] [place] [address] Glenn Gudino M.D. [id number] Platelet mean volume (Bld) [Entitic vol] 9.2 fL Low 9.4-12.4 [facility] Comment on above: Performed By: #### 4 5218 ####[facility] [address] [place] [address] Glenn Gudino M.D. [id number] Platelets (Bld) [#/Vol] 286 10*3/uL Normal 150-400 [facility] Comment on above: Performed By: #### 4 5218 ####[facility] [address] [place] [address] Glenn Gudino M.D. [id number] RBC (Bld) [#/Vol] 3.02 10*6/uL Low 4.00-5.20 [facility] Comment on above: Performed By: #### 4 5218 ####[facility] [address] [place] [address] Glenn Gudino M.D. [id number] WBC (Bld) [#/Vol] 14.32 10*3/uL High 4.50-11.00 [facility] Comment on above: Performed By: #### 4 5218 ####[facility] [address] [place] [address] 17469 Glenn Gudino M.D. [id number] CONSULTon 10-12-2023 CONSULT Normal [facility] CONSULT Normal [facility] HEMOGLOBIN A1Con 10-12-2023 Glucose [Mass/Vol] 111 mg/dL Normal 74-114 [facility] Comment on above: Order Comment: Irina l: 4.2% - 5.6%Increased risk for diabetes: 5.7% - 6.4%Diabetes: >= 6.5%Pediatrics: No established reference rangeEstimated average glucose: 74-114 mg/dL Performed By: #### 4 8202 ####[facility] [address] [place] [address] 63752 lGenn Gudino M.D. [id number] HbA1c (Bld) [Mass fraction] 5.5 % Normal 4.2-5.6 [facility] Comment on above: Order Comment: Irina l: 4.2% - 5.6%Increased risk for diabetes: 5.7% - 6.4%Diabetes: >= 6.5%Pediatrics: No established reference rangeEstimated average glucose: 74-114 mg/dL Performed By: #### 4 8202 ####[facility] [address] [place] [address] Glenn Gudino M.D. [id number] HEPATIC FUNCTION PANELon Albumin [Mass/Vol] 2.5 g/dL Low 3.2-5.2 [facility] Comment on above: Performed By: #### 4 5866 ####[facility] [address] [place] [address] Glenn Gudino M.D. [id number] ALP [Catalytic activity/Vol] 75 U/L Normal 40-150 [facility] Comment on above: Performed By: #### 4 5866 ####[facility] [address] [place], [place] [address] Glenn Gudino M.D. [id number] ALT [Catalytic activity/Vol] 27 U/L Normal 0-35 U/L [facility] Comment on above: Performed By: #### 4 5866 ####[facility] [address] [place], [place] [address] Glenn Gudino M.D. [id number] AST [Catalytic activity/Vol] 45 U/L High 0-35 U/L [facility] Comment on above: Performed By: #### 4 5866 ####[facility] [address] [place], [place] [address] Glenn Gudino M.D. [id number] Bilirubin [Mass/Vol] 0.5 mg/dL Normal 0.0-1.3 [facility] Comment on above: Performed By: #### 4 5866 ####[facility] [address] [place] [address] Glenn Gudino M.D. [id number] Bilirubin.indirect [Mass/Vol] 0.2 mg/dL Normal 0.0-0.4 [facility] Comment on above: Performed By: #### 4 5866 ####[facility] [address] [place], [place] [address] Glenn Gudino M.D. [id number] Protein [Mass/Vol] 6.2 g/dL Normal 6.0-8.0 [facility] Comment on above: Performed By: #### 4 5866 ####[facility] [address] [place] [address] Glenn Gudino M.D. [id number] MAGNESIUM LEVELon 10-12-2023 Magnesium [Mass/Vol] 1.9 mg/dL Normal 1.6-2.4 [facility] Comment on above: Performed By: #### 4 6109 ####[facility] [address] [place] [address] Glenn Gudino M.D. [id number] PHOSPHORUSon 10-12-2023 Phosphate [Mass/Vol] 2.0 mg/dL Low 2.8-4.1 [facility] Comment on above: Performed By: #### 4 6299 ####[facility] [address] [place] [address] Glenn Gudino M.D. [id number] Phosphate [Mass/Vol] 2.1 mg/dL Low 2.8-4.1 [facility] Comment on above: Performed By: #### 4 6299 ####[facility] [address] [place] [address] Glenn Gudino M.D. [id number] POC GLUCOSE - [facility] 024 Glucose [Mass/Vol] 81 mg/dL Normal 65-99 [facility] Comment on above: Performed By: #### 4 5407 ####[facility] [address] [place] [address] [id number] [facility] Glucose [Mass/Vol] 43 mg/dL Low 65-99 [facility] Comment on above: Performed By: #### 4 6946 ####[facility] [address] [place] [address] [id number] [facility] Glucose [Mass/Vol] 46 mg/dL Low 65-99 [facility] Comment on above: Performed By: #### 4 6932 ####[facility] [address] [place] [address] [id number] [facility] Glucose [Mass/Vol] 34 mg/dL Off scale low 65-99 [facility] Comment on above: Order Comment: Criti cherrie result acted upon time of test. Test performed at bedside. Performed By: #### 4 6942 ####[facility] [address] [place] [address] [id number] [facility] Glucose [Mass/Vol] 32 mg/dL Off scale low 65-99 [facility] Comment on above: Order Comment: Criti cherrie result acted upon time of test. Test performed at bedside. Performed By: #### 4 6975 ####[facility] [address] [place] [address] [id number] [facility] Glucose [Mass/Vol] 25 mg/dL Off scale low 65-99 [facility] [facility] Comment on above: Order Comment: Criti cherrie result acted upon time of test. Test performed at bedside. Performed By: #### 4 6904 ####[facility] [address] [place] [address] [id number] [facility] Glucose [Mass/Vol] 34 mg/dL Off scale low 65-99 [facility] Comment on above: Order Comment: Criti cherrie result acted upon time of test. Test performed at bedside. Performed By: #### 4 6785 ####[facility] [address] [place] [address] [id number] [facility] Glucose [Mass/Vol] 29 mg/dL Off scale low 65-99 [facility] Comment on above: Order Comment: Criti cherrie result acted upon time of test. Test performed at bedside. Performed By: #### 4 8372 ####[facility] [address] [place] [address] [id number] [facility] Glucose [Mass/Vol] 105 mg/dL High [address] [place] [address] Comment on above: Performed By: #### 4 6932 ####[facility] [address] [place] [address] [id number] [facility] Glucose [Mass/Vol] 105 mg/dL High [facility] Comment on above: Performed By: #### 4 6932 ####[facility] [address] [place] [address] [id number] [facility] Glucose [Mass/Vol] 99 mg/dL Normal -[address] [place] [address] Comment on above: Performed By: #### 4 6932 ####[facility] [address] [place] [address] [id number] [facility] Glucose [Mass/Vol] 97 mg/dL Normal -[address] [place] [address] Comment on above: Performed By: #### 4 6932 ####[facility] [address] [place] [address] [id number] [facility] Glucose [Mass/Vol] 101 mg/dL High [address] [place] [address] Comment on above: Performed By: #### 4 6932 ####[facility] [address] [place] [address] [id number] [facility] Glucose [Mass/Vol] 131 mg/dL High -[address] [place] [address] Comment on above: Performed By: #### 4 6932 ####[facility] [address] [place] [address] [id number] [facility] PT/INRon 10-12-2023 INR Coag (PPP) [Relative time] 1.4 {INR} High 0.8-1.1 [facility] Comment on above: Order Comment: Jennifer retana the induction phase of oral anticoagulation, the INR may not reflect the anticoagulation status of the patient. Therapeutic ranges for INR's are:Most clinical situations: INR 2.0-3.0Mechanical Prosthetic Valve: INR 2.5-3.5Critical: INR >5.0 Performed By: #### 4 6391 ####[facility] [address] [place] [address] 9[address]33 Glenn Gudino M.D. [id number] PT Coag (PPP) [Time] 16.9 s High 11.8-14.3 [facility] Comment on above: Order Comment: Jennifer retana the induction phase of oral anticoagulation, the INR may not reflect the anticoagulation status of the patient. Therapeutic ranges for INR's are:Most clinical situations: INR 2.0-3.0Mechanical Prosthetic Valve: INR 2.5-3.5Critical: INR >5.0 Performed By: #### 4 6391 ####[facility] [address] [place] [address] 87365 Glenn Gudino M.D. [id number] BASIC METABOLIC PANEL 05- Anion gap [Moles/Vol] 17 mmol/L Normal 10-20 [facility] Comment on above: Order Comment: [facility] has implemented the eGFR calculation approach that does not have a coefficient for race that conforms to the NKF-ASN Task Force Recommendations. Performed By: #### 4 6124 ####[facility] [address] [place] [address] 201[address] Glenn Gudino M.D. [id number] Calcium [Mass/Vol] 7.8 mg/dL Low 8.4-10.2 [facility] Comment on above: Order Comment: [facility] has implemented the eGFR calculation approach that does not have a coefficient for race that conforms to the NKF-ASN Task Force Recommendations. Performed By: #### 4 6124 ####[facility] [address] [place] [address] 68620 Glenn Gudino M.D. [id number] Chloride [Moles/Vol] 102 mmol/L Normal 98-108 [facility] Comment on above: Order Comment: [facility] has implemented the eGFR calculation approach that does not have a coefficient for race that conforms to the NKF-ASN Task Force Recommendations. Performed By: #### 4 6124 ####[facility] [address] [place] [address] 394[address] Glenn Gudino M.D. [id number] Creatinine [Mass/Vol] 1.37 mg/dL High 0.60-1.10 [facility] Comment on above: Order Comment: [facility] has implemented the eGFR calculation approach that does not have a coefficient for race that conforms to the NKF-ASN Task Force Recommendations. Performed By: #### 4 6124 ####[facility] [address] [place] [address] 273[address] Glenn Gudino M.D. [id number] EGFR 44 mL/min/1.73 m2 Low >=60 [facility] Comment on above: Order Comment: [facility] has implemented the eGFR calculation approach that does not have a coefficient for race that conforms to the NKF-ASN Task Force Recommendations. Result Comment: Joi mated GFR was calculated using the 2020 CKD-EPI creatinine equation. Performed By: #### 4 6124 ####[facility] [address] [place] [address] 67120 Glenn Gudino M.D. [id number] Glucose [Mass/Vol] 116 mg/dL High 65-99 [facility] Comment on above: Order Comment: [facility] has implemented the eGFR calculation approach that does not have a coefficient for race that conforms to the NKF-ASN Task Force Recommendations. Performed By: #### 4 6124 ####[facility] [address] [place] [address] 76159 Glenn Gudino M.D. [id number] HCO3 (Bld) [Moles/Vol] 22 mmol/L Normal 21-32 [facility] Comment on above: Order Comment: [facility] has implemented the eGFR calculation approach that does not have a coefficient for race that conforms to the NKF-ASN Task Force Recommendations. Performed By: #### 4 6124 ####[facility] [address] [place] [address] 58429 Glenn Gudino M.D. [id number] Potassium [Moles/Vol] 3.9 mmol/L Normal 3.5-5.1 [facility] Comment on above: Order Comment: [facility] has implemented the eGFR calculation approach that does not have a coefficient for race that conforms to the NKF-ASN Task Force Recommendations. Performed By: #### 4 6124 ####[facility] [address] [place] [address] 43615 Glenn Gudino M.D. [id number] Sodium [Moles/Vol] 137 mmol/L Normal 135-145 [facility] Comment on above: Order Comment: [facility] has implemented the eGFR calculation approach that does not have a coefficient for race that conforms to the NKF-ASN Task Force Recommendations. Performed By: #### 4 6124 ####[facility] [address] [place] [address] 59673 Glenn Gudino M.D. [id number] Urea nitrogen [Mass/Vol] 39 mg/dL High 8-25 [facility] Comment on above: Order Comment: [facility] has implemented the eGFR calculation approach that does not have a coefficient for race that conforms to the NKF-ASN Task Force Recommendations. Performed By: #### 4 6124 ####[facility] [address] [place] [address] 92951 Glenn Gudino M.D. [id number] Urea nitrogen/Creatinine [Mass ratio] 28.5 mg/mg High 10.0-20.0 [facility] Comment on above: Order Comment: [facility] has implemented the eGFR calculation approach that does not have a coefficient for race that conforms to the NKF-ASN Task Force Recommendations. Performed By: #### 4 6124 ####[facility] [address] [place], [place] [address] Glenn Gudino M.D. [id number] CALCIUM, IONIZEDon CALCIUM IONIZED 4.5 mg/dL Normal 4.5-5.3 [facility] Comment on above: Performed By: #### 4 5190 ####[facility] [address] [place], [place] [address] Glenn Gudino M.D. [id number] CBCon 10-11-2023 AUTO NRBC 0.0 % Normal [facility] Comment on above: Performed By: #### 4 5218 ####[facility] [address] [place] [address] Glenn Gudino M.D. [id number] AUTO NRBC ABS COUNT 0.00 K/mcL Normal 0.00-0.00 [facility] Comment on above: Performed By: #### 4 5218 ####[facility] [address] [place], [place] [address] Glenn Gudino M.D. [id number] Erythrocyte distribution width (RBC) [Ratio] 16.4 % High 11.6-14.8 [facility] Comment on above: Performed By: #### 4 [id number] ####[facility] [address] [place], [place] [address] Glenn Gudino M.D. [id number] Hematocrit (Bld) [Volume fraction] 23.0 % Low 36.0-46.0 [facility] Comment on above: Performed By: #### 4 [id number] ####[facility] [address] [place], [place] [address] Glenn Gudino M.D. [id number] Hemoglobin (Bld) [Mass/Vol] 7.8 g/dL Low 12.0-16.0 [facility] Comment on above: Performed By: #### 4 [id number] ####[facility] [address] [place] [address] 07783 Glenn Gudino M.D. [id number] MCH (RBC) [Entitic mass] 27.7 pg Normal 26.0-34.0 [facility] Comment on above: Performed By: #### 4 [id number] ####[facility] [address] [place] [address] Glenn Gudino M.D. [id number] MCV (RBC) [Entitic vol] 81.6 fL Normal 80.0-100.0 [facility] Comment on above: Performed By: #### 4 [id number] ####[facility] [address] [place] [address] Glenn Gudino M.D. [id number] MEAN CORPUSCULAR HEMOGLOBIN CONC 33.9 g/dL Normal 31.0-37.0 [facility] Comment on above: Performed By: #### 4 5218 ####[facility] [address] [place] [address] Glenn Gudino M.D. [id number] Platelet mean volume (Bld) [Entitic vol] 9.6 fL Normal 9.4-12.4 [facility] Comment on above: Performed By: #### 4 [id number] ####[facility] [address] [place] [address] Glenn Gudino M.D. [id number] Platelets (Bld) [#/Vol] 270 10*3/uL Normal 150-400 [facility] Comment on above: Performed By: #### 4 [id number] ####[facility] [address] [place], [place] [address] Glenn Gudino M.D. [id number] RBC (Bld) [#/Vol] 2.82 10*6/uL Low 4.00-5.20 [facility] Comment on above: Performed By: #### 4 5218 ####[facility] [address] [place] [address] Glenn Gudino M.D. [id number] WBC (Bld) [#/Vol] 16.66 10*3/uL High 4.50-11.00 [facility] Comment on above: Performed By: #### 4 5218 ####[facility] [address] [place] [address] Glenn Gudino M.D. [id number] HEPATIC FUNCTION PANELon Albumin [Mass/Vol] 2.3 g/dL Low 3.2-5.2 [facility] Comment on above: Performed By: #### 4 5866 ####[facility] [address] [place] [address] Glenn Gudino M.D. [id number] ALP [Catalytic activity/Vol] 62 U/L Normal 40-150 [facility] Comment on above: Performed By: #### 4 5866 ####[facility] [address] [place] [address] Glenn Gudino M.D. [id number] ALT [Catalytic activity/Vol] 31 U/L Normal 0-35 U/L [facility] Comment on above: Performed By: #### 4 5866 ####[facility] [address] [place], [place] [address] Glenn Gudino M.D. [id number] AST [Catalytic activity/Vol] 51 U/L High 0-35 U/L [facility] Comment on above: Performed By: #### 4 5866 ####[facility] [address] [place], [place] [address] Glenn Gudino M.D. [id number] Bilirubin [Mass/Vol] 0.4 mg/dL Normal 0.0-1.3 [facility] Comment on above: Performed By: #### 4 5849 ####[facility] [address] [place], [place] [address] Glenn Gudino M.D. [id number] Bilirubin.indirect [Mass/Vol] 0.2 mg/dL Normal 0.0-0.4 [facility] Comment on above: Performed By: #### 4 5866 ####[facility] [address] [place], [place] [address] Glenn Gudino M.D. [id number] Protein [Mass/Vol] 5.8 g/dL Low 6.0-8.0 [facility] Comment on above: Performed By: #### 4 5866 ####[facility] [address] [place] [address] Glenn Gudino M.D. [id number] MAGNESIUM LEVELon 10-11-2023 Magnesium [Mass/Vol] 2.2 mg/dL Normal 1.6-2.4 [facility] Comment on above: Performed By: #### 4 6109 ####[facility] [address] [place] [address] Glenn Gudino M.D. [id number] OP NOTEon 10-11-2023 OP NOTE Normal [facility] PHOSPHORUSon 10-11-2023 Phosphate [Mass/Vol] 4.7 mg/dL High 2.8-4.1 [facility] Comment on above: Performed By: #### 4 6299 ####[facility] [address] [place] [address] Glenn Gudino M.D. [id number] POC GLUCOSE - [facility] 024 Glucose [Mass/Vol] 111 mg/dL High 65-99 [facility] Comment on above: Performed By: #### 4 7072 ####[facility] [address] [place] [address] [id number] [facility] Glucose [Mass/Vol] 56 mg/dL Low 65-99 [facility] Comment on above: Performed By: #### 4 1370 ####[facility] [address] [place] [address] [id number] [facility] Glucose [Mass/Vol] 42 mg/dL Low 65- [facility] Comment on above: Performed By: #### 4 9696 ####[facility] [address] [place] [address] [id number] [facility] Glucose [Mass/Vol] 50 mg/dL Low 65- [facility] Comment on above: Performed By: #### 4 4753 ####[facility] [address] [place] [address] [id number] [facility] Glucose [Mass/Vol] 59 mg/dL Low 65- [facility] Comment on above: Performed By: #### 4 6363 ####[facility] [address] [place] [address] [id number] [facility] Glucose [Mass/Vol] 74 mg/dL Normal 65- [facility] Comment on above: Performed By: #### 4 2338 ####[facility] [address] [place] [address] [id number] [facility] Glucose [Mass/Vol] 119 mg/dL High - [facility] Comment on above: Performed By: #### 4 0429 ####[facility] [address] [place] [address] [id number] [facility] Glucose [Mass/Vol] 88 mg/dL Normal 65- [facility] Comment on above: Performed By: #### 4 7871 ####[facility] [address] [place] [address] [id number] [facility] Glucose [Mass/Vol] 126 mg/dL High 65- [facility] Comment on above: Performed By: #### 4 0826 ####[facility] [address] [place] [address] [id number] [facility] POTASSIUM LEVELon 10-11-2023 Potassium [Moles/Vol] 4.1 mmol/L Normal 3.5-5.1 [facility] Comment on above: Performed By: #### 4 6351 ####[facility] [address] [place], [place] [address] Glenn Gudino M.D. [id number] PT/INRon 10-11-2023 INR Coag (PPP) [Relative time] 1.1 {INR} Normal 0.8-1.1 [facility] Comment on above: Order Comment: Jennifer retana the induction phase of oral anticoagulation, the INR may not reflect the anticoagulation status of the patient. Therapeutic ranges for INR's are:Most clinical situations: INR 2.0-3.0Mechanical Prosthetic Valve: INR 2.5-3.5Critical: INR >5.0 Performed By: #### 4 6391 ####[facility] [address] [place], [place] [address] Glenn Gudino M.D. [id number] PT Coag (PPP) [Time] 14.3 s Normal 11.8-14.3 [facility] Comment on above: Order Comment: Jennifer retana the induction phase of oral anticoagulation, the INR may not reflect the anticoagulation status of the patient. Therapeutic ranges for INR's are:Most clinical situations: INR 2.0-3.0Mechanical Prosthetic Valve: INR 2.5-3.5Critical: INR >5.0 Performed By: #### 4 6391 ####[facility] [address] [place], [place] [address] Glenn Gudino M.D. [id number] APTTon 10-10-2023 aPTT Coag (Bld) [Time] 34 s Normal 23-34 [facility] Comment on above: Order Comment: Thera peutic range for APTT's is 68 - 104 seconds Performed By: #### 4 5113 ####[facility] [address] [place], [place] [address] Glenn Gudino M.D. [id number] BILIRUBIN, DIRECTon 10-10-19 24 Bilirubin.indirect [Mass/Vol] 1.1 mg/dL High 0.0-0.4 [facility] Comment on above: Performed By: #### 4 5145 ####[facility] [address] [place] [address] Glenn Gudino M.D. [id number] CALCIUM, IONIZEDon CALCIUM IONIZED 4.3 mg/dL Low 4.5-5.3 [facility] Comment on above: Performed By: #### 4 5190 ####[facility] [address] [place] [address] Glenn Gudino M.D. [id number] CBC WITH AUTO DIFFERENTIALon 10-10-2023 AUTO NRBC 0.0 % Normal [facility] Comment on above: Performed By: #### L [id number] ####[facility] [address] [place] [address] Glenn Gudino M.D. [id number] AUTO NRBC ABS COUNT 0.00 K/mcL Normal 0.00-0.00 [facility] Comment on above: Performed By: #### L [id number] ####[facility] [address] [place] [address] Glenn Gudino M.D. [id number] BASOPHILS ABSOLUTE COUNT 0.02 K/mcL Normal 0.00-0.30 [facility] Comment on above: Performed By: #### L [id number] ####[facility] [address] [place] [address] Glenn Gudino M.D. [id number] Basophils/100 WBC (Bld) 0.1 % Normal [facility] Comment on above: Performed By: #### L [id number] ####[facility] [address] [place] [address] Glenn Gudino M.D. [id number] Eosinophils (Bld) [#/Vol] 0.01 10*3/uL Normal 0.00-0.50 [facility] Comment on above: Performed By: #### L [id number] ####[facility] [address] [place] [address] Glenn Gudino M.D. [id number] Eosinophils/100 WBC (Bld) 0.1 % Normal [facility] Comment on above: Performed By: #### Hugh [id number] ####[facility] [address] [place] [address] Glenn Gudino M.D. [id number] Erythrocyte distribution width (RBC) [Ratio] 15.5 % High 11.6-14.8 [facility] Comment on above: Performed By: #### L [id number] ####[facility] [address] [place] [address] Glenn Gudino M.D. [id number] Hematocrit (Bld) [Volume fraction] 28.6 % Low 36.0-46.0 [facility] Comment on above: Result Comment: Repe ated verified Performed By: #### L [id number] ####[facility] [address] [place] [address] Glenn Gudino M.D. [id number] Hemoglobin (Bld) [Mass/Vol] 9.7 g/dL Low 12.0-16.0 [facility] Comment on above: Result Comment: Repe ated verified Performed By: #### L [id number] ####[facility] [address] [place] [address] Glenn Gudino M.D. [id number] IG ABSOLUTE 0.46 K/mcL High 0.00-0.30 [facility] Comment on above: Performed By: #### L [id number] ####[facility] [address] [place] [address] Glenn Gudino M.D. [id number] IG PERCENT 3.00 % Normal [facility] Comment on above: Result Comment: The IG parameter is the percentage of metamyelocytes, myelocytes and promyelocytes. An immature granulocyte count (IG) of 1% or more suggests the possibility of infection, an IG count of 3% is very likely related to an infection. Performed By: #### L [id number] ####[facility] [address] [place] [address] Glenn Gudino M.D. [id number] Lymphocytes (Bld) [#/Vol] 0.44 10*3/uL Low 0.90-4.00 [facility] Comment on above: Performed By: #### L [id number] ####[facility] [address] [place] [address] Glenn Gudino M.D. [id number] Lymphocytes/100 WBC (Bld) 2.9 % Normal [facility] Comment on above: Performed By: #### Hugh [id number] ####[facility] [address] [place] [address] Glenn Gudino M.D. [id number] MCH (RBC) [Entitic mass] 28.1 pg Normal 26.0-34.0 [facility] Comment on above: Performed By: #### L [id number] ####[facility] [address] [place] [address] Glenn Gudino M.D. [id number] MCV (RBC) [Entitic vol] 82.9 fL Normal 80.0-100.0 [facility] Comment on above: Performed By: #### L [id number] ####[facility] [address] [place] [address] Glenn Gudino M.D. [id number] MEAN CORPUSCULAR HEMOGLOBIN CONC 33.9 g/dL Normal 31.0-37.0 [facility] Comment on above: Performed By: #### L [id number] ####[facility] [address] [place] [address] Glenn Gudino M.D. [id number] Monocytes (Bld) [#/Vol] 0.76 10*3/uL Normal 0.30-0.90 [facility] Comment on above: Performed By: #### Hugh [id number] ####[facility] [address] [place] [address] Glenn Gudino M.D. [id number] Monocytes/100 WBC (Bld) 5.0 % Normal [facility] Comment on above: Performed By: #### Hugh [id number] ####[facility] [address] [place] [address] Glenn Gudino M.D. [id number] NEUTROPHILS ABSOLUTE COUNT 13.47 K/mcL High 1.70-7.00 [facility] Comment on above: Performed By: #### Hugh [id number] ####[facility] [address] [place] [address] Glenn Gudino M.D. [id number] Neutrophils/100 WBC (Bld) 88.9 % Normal [facility] Comment on above: Performed By: #### Hugh [id number] ####[facility] [address] [place] [address] Glenn Gudino M.D. [id number] Platelet mean volume (Bld) [Entitic vol] 9.6 fL Normal 9.4-12.4 [facility] Comment on above: Performed By: #### Hugh [id number] ####[facility] [address] [place] [address] Glenn Gudino M.D. [id number] Platelets (Bld) [#/Vol] 182 10*3/uL Normal 150-400 [facility] Comment on above: Result Comment: Repe ated verified Performed By: #### L [id number] ####[facility] [address] [place] [address] Glenn Gudino M.D. [id number] RBC (Bld) [#/Vol] 3.45 10*6/uL Low 4.00-5.20 [facility] Comment on above: Performed By: #### L [id number] ####[facility] [address] [place] [address] Glenn Gudino M.D. [id number] WBC (Bld) [#/Vol] 15.16 10*3/uL High 4.50-11.00 [facility] Comment on above: Performed By: #### L [id number] ####[facility] [address] [place] [address] Glenn Gudino M.D. [id number] COMPREHENSIVE METABOLIC PANE [facility] 10-10-2023 Albumin [Mass/Vol] 2.2 g/dL Low 3.2-5.2 [facility] Comment on above: Order Comment: [facility] has implemented the eGFR calculation approach that does not have a coefficient for race that conforms to the NKF-ASN Task Force Recommendations. Performed By: #### 4 6126 ####[facility] [address] [place] [address] Glenn Gudino M.D. [id number] ALP [Catalytic activity/Vol] 62 U/L Normal 40-150 [facility] Comment on above: Order Comment: [facility] has implemented the eGFR calculation approach that does not have a coefficient for race that conforms to the NKF-ASN Task Force Recommendations. Performed By: #### 4 6126 ####[facility] [address] [place] [address] Glenn Gudino M.D. [id number] ALT [Catalytic activity/Vol] 31 U/L Normal 0-35 U/L [facility] Comment on above: Order Comment: [facility] has implemented the eGFR calculation approach that does not have a coefficient for race that conforms to the NKF-ASN Task Force Recommendations. Result Comment: Slig htly Hemolyzed Performed By: #### 4 6126 ####[facility] [facility] [address] [place] [address] 38231 Glenn Gudino M.D. [id number] Anion gap [Moles/Vol] 22 mmol/L High 10-20 [facility] Comment on above: Order Comment: [facility] has implemented the eGFR calculation approach that does not have a coefficient for race that conforms to the NKF-ASN Task Force Recommendations. Performed By: #### 4 6126 ####[facility] [address] [place] [address] 26387 Glenn Gudino M.D. [id number] AST [Catalytic activity/Vol] 52 U/L High 0-35 U/L [facility] Comment on above: Order Comment: [facility] has implemented the eGFR calculation approach that does not have a coefficient for race that conforms to the NKF-ASN Task Force Recommendations. Result Comment: Slig htly Hemolyzed Performed By: #### 4 6126 ####[facility] [address] [place] [address] 87732 Glenn Gudino M.D. [id number] Bilirubin [Mass/Vol] 1.3 mg/dL Normal 0.0-1.3 [facility] Comment on above: Order Comment: [facility] has implemented the eGFR calculation approach that does not have a coefficient for race that conforms to the NKF-ASN Task Force Recommendations. Performed By: #### 4 6126 ####[facility] [address] [place] [address] 25558 Glenn Gudino M.D. [id number] Calcium [Mass/Vol] 7.2 mg/dL Low 8.4-10.2 [facility] Comment on above: Order Comment: [facility] has implemented the eGFR calculation approach that does not have a coefficient for race that conforms to the NKF-ASN Task Force Recommendations. Performed By: #### 4 6126 ####[facility] [address] [place] [address] 05950 Glenn Gudino M.D. [id number] Chloride [Moles/Vol] 97 mmol/L Low 98-108 [facility] Comment on above: Order Comment: [facility] has implemented the eGFR calculation approach that does not have a coefficient for race that conforms to the NKF-ASN Task Force Recommendations. Performed By: #### 4 6126 ####[facility] [address] [place], [place] [address] Glenn Gudino M.D. [id number] Creatinine [Mass/Vol] 1.32 mg/dL High 0.60-1.10 [facility] Comment on above: Order Comment: [facility] has implemented the eGFR calculation approach that does not have a coefficient for race that conforms to the NKF-ASN Task Force Recommendations. Performed By: #### 4 6126 ####[facility] [address] [place], [place] [address] Glenn Gudino M.D. [id number] EGFR 46 mL/min/1.73 m2 Low >=60 [facility] Comment on above: Order Comment: [facility] has implemented the eGFR calculation approach that does not have a coefficient for race that conforms to the NKF-ASN Task Force Recommendations. Result Comment: Joi mated GFR was calculated using the 2020 CKD-EPI creatinine equation. Performed By: #### 4 6126 ####[facility] [address] [place], [place] [address] Glenn Gudino M.D. [id number] Glucose [Mass/Vol] 147 mg/dL High 65-99 [facility] Comment on above: Order Comment: [facility] has implemented the eGFR calculation approach that does not have a coefficient for race that conforms to the NKF-ASN Task Force Recommendations. Performed By: #### 4 6126 ####[facility] [address] [place], [place] [address] Glenn Gudino M.D. [id number] HCO3 (Bld) [Moles/Vol] 19 mmol/L Low 21-32 [facility] Comment on above: Order Comment: [facility] has implemented the eGFR calculation approach that does not have a coefficient for race that conforms to the NKF-ASN Task Force Recommendations. Performed By: #### 4 6126 ####[facility] [address] [place] [address] Glenn Gudino M.D. [id number] Potassium [Moles/Vol] 4.9 mmol/L Normal 3.5-5.1 [facility] Comment on above: Order Comment: [facility] has implemented the eGFR calculation approach that does not have a coefficient for race that conforms to the NKF-ASN Task Force Recommendations. Result Comment: Slig htly Hemolyzed Performed By: #### 4 6126 ####[facility] [address] [place], [place] [address] Glenn Gudino M.D. [id number] Protein [Mass/Vol] 5.1 g/dL Low 6.0-8.0 [facility] Comment on above: Order Comment: [facility] has implemented the eGFR calculation approach that does not have a coefficient for race that conforms to the NKF-ASN Task Force Recommendations. Performed By: #### 4 6126 ####[facility] [address] [place], [place] [address] Glenn Gudino M.D. [id number] Sodium [Moles/Vol] 133 mmol/L Low 135-145 [facility] Comment on above: Order Comment: [facility] has implemented the eGFR calculation approach that does not have a coefficient for race that conforms to the NKF-ASN Task Force Recommendations. Performed By: #### 4 6126 ####[facility] [address] [place] [address] 09764 Glenn Gudino M.D. [id number] Urea nitrogen [Mass/Vol] 39 mg/dL High 8-25 [facility] Comment on above: Order Comment: [facility] has implemented the eGFR calculation approach that does not have a coefficient for race that conforms to the NKF-ASN Task Force Recommendations. Performed By: #### 4 6126 ####[facility] [address] [place], [place] [address] Glenn Gudino M.D. [id number] Urea nitrogen/Creatinine [Mass ratio] 29.5 mg/mg High 10.0-20.0 [facility] Comment on above: Order Comment: [facility] has implemented the eGFR calculation approach that does not have a coefficient for race that conforms to the NKF-ASN Task Force Recommendations. Performed By: #### 4 6126 ####[facility] [address] [place], [place] [address] Glenn Gudino M.D. [id number] CONSULTon 10-10-2023 CONSULT Normal [facility] CONSULT Normal [facility] FIBRINOGENon 10-10-2023 FIBRINOGEN LEVEL 347 mg/dL Normal 224-483 [facility] Comment on above: Performed By: #### 4 5616 ####[facility] [address] [place], [place] [address] Glenn Gudino M.D. [id number] LACTIC ACID, PLASMAon 2023 LACTIC ACID, PLASMA 1.0 mmol/L Normal 0.6-2.0 [facility] Comment on above: Performed By: #### 4 6053 ####[facility] [address] [place] [address] 37204 Glenn Gudino M.D. [id number] LDHon 10-10-2023 LDH [Catalytic activity/Vol] 339 U/L High 100-250 [facility] Comment on above: Performed By: #### 4 6065 ####[facility] [address] [place] [address] 93895 Glenn Gudino M.D. [id number] MAGNESIUM LEVELon 10-10-2023 Magnesium [Mass/Vol] 2.3 mg/dL Normal 1.6-2.4 [facility] Comment on above: Performed By: #### 4 6109 ####[facility] [address] [place] [address] Glenn Gudino M.D. [id number] PHOSPHORUSon 10-10-2023 Phosphate [Mass/Vol] 7.3 mg/dL High 2.8-4.1 [facility] Comment on above: Performed By: #### 4 6299 ####[facility] [address] [place] [address] Glenn Gudino M.D. [id number] POC ARTERIAL BLOOD GAS PANEL -[facility] 10-10-2023 BASE EXCESS, ARTERIAL -4.0 Low -2.0-2.0 [facility] Comment on above: Performed By: #### 4 8716 ####[facility] [address] [place] [address] [id number] [facility] CALCIUM IONIZED 4.2 mg/dL Low 4.5-5.3 [facility] Comment on above: Performed By: #### 4 8716 ####[facility] [address] [place] [address] [id number] [facility] CARBOXYHEMOGLOBIN 1.9 % of total Hb High <=1.5 [facility] Comment on above: Result Comment: Refe rence Ranges:Suburban Non-smokers: <1.5%Smokers: 1.5-5.0%Heavy Smokers: 5.0-9.0% Performed By: #### 4 8716 ####[facility] [address] [place] [address] [id number] [facility] Chloride [Moles/Vol] 98 mmol/L Normal 98-108 [facility] Comment on above: Performed By: #### 4 8710 ####[facility] [address] [place] [address] [id number] [facility] FIO2 40 Normal [facility] Comment on above: Performed By: #### 4 16 ####[facility] [address] [place] [address] [id number] [facility] Glucose [Mass/Vol] 142 mg/dL High 65-99 [facility] Comment on above: Performed By: #### 4 0516 ####[facility] [address] [place] [address] [id number] [facility] HCO3 (Bld) [Moles/Vol] 21.3 mmol/L Low 22.0-26.0 [facility] Comment on above: Performed By: #### 4 8116 ####[facility] [address] [place] [address] [id number] [facility] Hematocrit (Bld) [Volume fraction] 31.0 % Low 36.0-46.0 [facility] Comment on above: Performed By: #### 4 9416 ####[facility] [address] [place] [address] [id number] [facility] Hemoglobin (Bld) [Mass/Vol] 10.1 g/dL Low 12.0-16.0 [facility] Comment on above: Performed By: #### 4 4816 ####[facility] [address] [place] [address] [id number] [facility] LACTIC ACID, WHOLE BLOOD 1.1 mmol/L Normal 0.6-2.0 [facility] Comment on above: Performed By: #### 4 3716 ####[facility] [address] [place] [address] [id number] [facility] METHEMOGLOBIN < Normal 0.0-2.0 [facility] Comment on above: Performed By: #### 4 3117 ####[facility] [address] [place] [address] [id number] [facility] O2HB 96.1 % Normal 94.0-98.0 [facility] Comment on above: Performed By: #### 4 6960 ####[facility] [address] [place] [address] [id number] [facility] Oxygen saturation in Blood 98.4 % Normal 92.0-99.0 [facility] Comment on above: Performed By: #### 4 8716 ####[facility] [address] [place] [address] [id number] [facility] PCO2 ARTERIAL 38.7 mm Hg Normal 35.0-45.0 [facility] Comment on above: Performed By: #### 4 8716 ####[facility] [address] [place] [address] [id number] [facility] PEEP RAD 5 Normal [facility] Comment on above: Performed By: #### 4 8716 ####[facility] [address] [place] [address] [id number] [facility] PH ARTERIAL 7.35 Normal 7.35-7.45 [facility] Comment on above: Performed By: #### 4 8716 ####[facility] [address] [place] [address] [id number] [facility] PO2 ARTERIAL 96 mm Hg Normal 80-100 [facility] Comment on above: Performed By: #### 4 8716 ####[facility] [address] [place] [address] [id number] [facility] Potassium [Moles/Vol] 4.6 mmol/L Normal 3.5-5.1 [facility] Comment on above: Performed By: #### 4 8716 ####[facility] [address] [place] [address] [id number] [facility] Sodium [Moles/Vol] 131 mmol/L Low 135-145 [facility] Comment on above: Performed By: #### 4 8716 ####[facility] [address] [place] [address] [id number] [facility] POC GLUCOSE - [facility] 024 Glucose [Mass/Vol] 118 mg/dL High 65-99 [facility] Comment on above: Performed By: #### 4 6932 ####[facility] [address] [place] [address] [id number] [facility] Glucose [Mass/Vol] 53 mg/dL Low [address] [place] [address] Comment on above: Performed By: #### 4 6932 ####[facility] [address] [place] [address] [id number] [facility] Glucose [Mass/Vol] 144 mg/dL High [address] [place] [address] Comment on above: Performed By: #### 4 6932 ####[facility] [address] [place] [address] [id number] [facility] Glucose [Mass/Vol] 47 mg/dL Low [address] [place] [address] Comment on above: Performed By: #### 4 6932 ####[facility] [address] [place] [address] [id number] [facility] Glucose [Mass/Vol] 87 mg/dL Normal [address] [place] [address] Comment on above: Performed By: #### 4 6932 ####[facility] [address] [place] [address] [id number] [facility] Glucose [Mass/Vol] 167 mg/dL [address] Comment on above: Performed By: #### 4 6932 ####[facility] [address] [place] [address] [id number] [facility] Glucose [Mass/Vol] 199 mg/dL High [address] [place] [address] Comment on above: Performed By: #### 4 6932 ####[facility] [address] [place] [address] [id number] [facility] Glucose [Mass/Vol] 186 mg/dL High [address] [place] [address] Comment on above: Performed By: #### 4 6990 ####[facility] [address] [place] [address] [id number] [facility] Glucose [Mass/Vol] 158 mg/dL High [address] [place] [address] Comment on above: Performed By: #### 4 6932 ####[facility] [address] [place] [address] [id number] [facility] PT/INRon 10-10-2023 INR Coag (PPP) [Relative time] 1.5 {INR} High 0.8-1.1 [facility] Comment on above: Order Comment: Jennifer g the induction phase of oral anticoagulation, the INR may not reflect the anticoagulation status of the patient. Therapeutic ranges for INR's are:Most clinical situations: INR 2.0-3.0Mechanical Prosthetic Valve: INR 2.5-3.5Critical: INR >5.0 Performed By: #### 4 6391 ####[facility] [address] [place], [place] [address] Glenn Gudino M.D. [id number] PT Coag (PPP) [Time] 18.2 s High 11.8-14.3 [facility] Comment on above: Order Comment: Jennifer g the induction phase of oral anticoagulation, the INR may not reflect the anticoagulation status of the patient. Therapeutic ranges for INR's are:Most clinical situations: INR 2.0-3.0Mechanical Prosthetic Valve: INR 2.5-3.5Critical: INR >5.0 Performed By: #### 4 6391 ####[facility] [address] [place], [place] [address] Glenn Gudino M.D. [id number] TRIGLYCERIDESon 10-10-2023 Triglyceride [Mass/Vol] 111 mg/dL Normal 30-150 [facility] Comment on above: Performed By: #### 4 6606 ####[facility] [address] [place], [place] [address] Glenn Gudino M.D. [id number] XR CHEST PA/APon 10-10-2023 XR CHEST PA/AP Normal [facility] Comment on above: Order Comment: Injur y/Trauma or Illness?:Illness/OtherHow long have you had these symptoms (acute/chronic)?:UnknownReason for exam?:ETT placementHistory of cancer?:uSurgeries, chemotherapy, or radiation?:uType of Exam?:UnknownAdditional signs and symptoms?:no ABORH VERIFICATIONon 024 ABO and Rh group Nom (Bld) Blood group O Rh(D) positive Normal [facility] ABO and Rh group Nom (Bld) ABO/Rh Verification Normal [facility] Comment on above: Result Comment: Romi ent's ABO/Rh is verified. APTTon 10-09-2023 aPTT Coag (Bld) [Time] 36 s High 23-34 [facility] Comment on above: Order Comment: Thera peutic range for APTT's is 68 - 104 seconds Performed By: #### 4 5113 #### [address] [address] Jaron Méndez M.D. [id number] BASIC METABOLIC PANELon 09-26 Anion gap [Moles/Vol] 14 mmol/L Normal 10-20 [facility] Comment on above: Order Comment: [facility] has implemented the eGFR calculation approach that does not have a coefficient for race that conforms to the NKF-ASN Task Force Recommendations. Performed By: #### 4 6124 #### LAB [address] [place] [address] Jaron Méndez M.D. [id number] Calcium [Mass/Vol] 8.6 mg/dL Normal 8.4-10.2 [facility] Comment on above: Order Comment: [facility] has implemented the eGFR calculation approach that does not have a coefficient for race that conforms to the NKF-ASN Task Force Recommendations. Performed By: #### 4 6124 #### LAB [address] [place] [address] Jaron Méndez M.D. [id number] Chloride [Moles/Vol] 95 mmol/L Low 98-108 [facility] Comment on above: Order Comment: [facility] has implemented the eGFR calculation approach that does not have a coefficient for race that conforms to the NKF-ASN Task Force Recommendations. Performed By: #### 4 6124 #### [facility] [address] [place] [address] Jaron Méndez M.D. [id number] Creatinine [Mass/Vol] 1.80 mg/dL High 0.60-1.10 [facility] Comment on above: Order Comment: [facility] has implemented the eGFR calculation approach that does not have a coefficient for race that conforms to the NKF-ASN Task Force Recommendations. Performed By: #### 4 6124 #### [facility] [address] [place] [address] Jaron Méndez M.D. [id number] EGFR 32 mL/min/1.73 m2 Low >=60 [facility] Comment on above: Order Comment: [facility] has implemented the eGFR calculation approach that does not have a coefficient for race that conforms to the NKF-ASN Task Force Recommendations. Result Comment: Joi mated GFR was calculated using the 2020 CKD-EPI creatinine equation. Performed By: #### 4 6124 #### [place] [address] Jaron Méndez M.D. [id number] Glucose [Mass/Vol] 131 mg/dL High 65-99 [facility] Comment on above: Order Comment: [facility] has implemented the eGFR calculation approach that does not have a coefficient for race that conforms to the NKF-ASN Task Force Recommendations. Performed By: #### 4 6124 #### [place] [id number] Jaron Méndez M.D. [id number] HCO3 (Bld) [Moles/Vol] 23 mmol/L Normal 21-32 [facility] Comment on above: Order Comment: [facility] has implemented the eGFR calculation approach that does not have a coefficient for race that conforms to the NKF-ASN Task Force Recommendations. Performed By: #### 4 6163 #### [place] [id number] Jaron Méndez M.D. [id number] Potassium [Moles/Vol] 4.1 mmol/L Normal 3.5-5.1 [facility] Comment on above: Order Comment: [facility] has implemented the eGFR calculation approach that does not have a coefficient for race that conforms to the NKF-ASN Task Force Recommendations. Performed By: #### 4 6124 #### [facility] [address] [place] [address] Jaron Méndez M.D. [id number] Sodium [Moles/Vol] 128 mmol/L Low 135-145 [facility] Comment on above: Order Comment: [facility] has implemented the eGFR calculation approach that does not have a coefficient for race that conforms to the NKF-ASN Task Force Recommendations. Performed By: #### 4 6124 #### [facility] [address] [place] [address] 61458 Jaron Méndez M.D. [id number] Urea nitrogen [Mass/Vol] 46 mg/dL High 8-25 [facility] Comment on above: Order Comment: [facility] has implemented the eGFR calculation approach that does not have a coefficient for race that conforms to the NKF-ASN Task Force Recommendations. Performed By: #### 4 6124 #### [facility] [address] [address] Jaron Méndez M.D. [id number] Urea nitrogen/Creatinine [Mass ratio] 25.6 mg/mg High 10.0-20.0 [facility] Comment on above: Order Comment: [facility] has implemented the eGFR calculation approach that does not have a coefficient for race that conforms to the NKF-ASN Task Force Recommendations. Performed By: #### 4 6124 #### [facility] [address] [place] [address] Jaron Méndez M.D. [id number] CBC WITH AUTO DIFFERENTIALon 10-09-2023 BASOPHILS ABSOLUTE COUNT 0.01 K/mcL Normal 0.00-0.30 [facility] Comment on above: Performed By: #### 4 6391 #### [facility] [address] [place] [address] 27841 Jaron Méndez M.D. [id number] Basophils/100 WBC (Bld) 0.0 % Normal [facility] Comment on above: Performed By: #### 4 6391 #### [facility] [address] [place] [address] 580[address] Jaron Méndez M.D. [id number] Eosinophils (Bld) [#/Vol] 0.00 10*3/uL Normal 0.00-0.50 [facility] Comment on above: Performed By: #### 4 6391 #### [facility] [address] [place] [address] Jaron Méndez M.D. [id number] Eosinophils/100 WBC (Bld) 0.0 % [facility] Comment on above: Performed By: #### 4 6391 #### [facility] [address] [place] [address] Jaron Méndez M.D. [id number] Erythrocyte distribution width (RBC) [Ratio] 16.3 % High 11.6-14.8 [facility] Comment on above: Performed By: #### 4 6391 #### [facility] [address] [place] [address] Jaron Méndez M.D. [id number] Hematocrit (Bld) [Volume fraction] 22.3 % Low 36.0-46.0 [facility] Comment on above: Performed By: #### 4 6391 #### [facility] [address] [place] [address] Jaron Méndez M.D. [id number] Hemoglobin (Bld) [Mass/Vol] 7.2 g/dL Low 12.0-16.0 [facility] Comment on above: Performed By: #### 4 6391 #### [facility] [address] [place] [address] Jaron Méndez M.D. [id number] IG ABSOLUTE 0.33 K/mcL High 0.00-0.30 [facility] Comment on above: Performed By: #### 4 6391 #### [facility] [address] [place] [address] Jaron Méndez M.D. [id number] IG PERCENT 1.40 % [facility] Comment on above: Result Comment: The IG parameter is the percentage of metamyelocytes, myelocytes and promyelocytes. An immature granulocyte count (IG) of 1% or more suggests the possibility of infection, an IG count of 3% is very likely related to an infection. Performed By: #### 4 6391 #### [facility] [address] [place] [address] 225[address] Jaron Méndez M.D. [id number] Lymphocytes (Bld) [#/Vol] 1.27 10*3/uL Normal 0.90-4.00 [facility] Comment on above: Performed By: #### 4 6391 #### [facility] [address] [place] [address] Jaron Méndez M.D. [id number] Lymphocytes/100 WBC (Bld) 5.6 % Normal [facility] Comment on above: Performed By: #### 4 6391 #### [facility] [address] [place] [address] Jaron Méndez M.D. [id number] MCH (RBC) [Entitic mass] 27.7 pg Normal 26.0-34.0 [facility] Comment on above: Performed By: #### 4 6391 #### [facility] [address] [place] [address] Jaron Méndez M.D. [id number] MCV (RBC) [Entitic vol] 85.8 fL Normal 80.0-100.0 [facility] Comment on above: Performed By: #### 4 6391 #### [facility] [address] [place] [address] Jaron Méndez M.D. [id number] MEAN CORPUSCULAR HEMOGLOBIN CONC 32.3 g/dL Normal 31.0-37.0 [facility] Comment on above: Performed By: #### 4 6391 #### [facility] [address] [place], [place] [address] Jaron Méndez M.D. [id number] Monocytes (Bld) [#/Vol] 1.96 10*3/uL High 0.30-0.90 [facility] Comment on above: Performed By: #### 4 6391 #### [facility] [address] [place] [address] Jaron Méndez M.D. [id number] Monocytes/100 WBC (Bld) 8.6 % Normal [facility] Comment on above: Performed By: #### 4 6391 #### [facility] [address] [place] [address] Jaron Méndez M.D. [id number] NEUTROPHILS ABSOLUTE COUNT 19.22 K/mcL High 1.70-7.00 [facility] Comment on above: Performed By: #### 4 6391 #### [facility] [address] [place] [address] Jaron Méndez M.D. [id number] Neutrophils/100 WBC (Bld) 84.4 % Normal [facility] Comment on above: Performed By: #### 4 6391 #### [facility] [address] [place] [address] Jaron Méndez M.D. [id number] Platelet mean volume (Bld) [Entitic vol] 9.6 fL Normal 9.4-12.4 [facility] Comment on above: Performed By: #### 4 6391 #### [facility] [address] [place] [address] Jaron Méndez M.D. [id number] Platelets (Bld) [#/Vol] 389 10*3/uL Normal 150-400 [facility] Comment on above: Performed By: #### 4 6391 #### [facility] [address] [place], [place] [address] Jraon Méndez M.D. [id number] RBC (Bld) [#/Vol] 2.60 10*6/uL Low 4.00-5.20 [facility] Comment on above: Performed By: #### 4 6391 #### [facility] [address] [place] [address] Jaron Méndez M.D. [id number] WBC (Bld) [#/Vol] 22.79 10*3/uL High 4.50-11.00 [facility] Comment on above: Performed By: #### 4 [id number] #### [facility] [address] [place] [address] Jaron Méndez M.D. [id number] COVID-19/INFLUENZA A,B MOLEC ULARon 10-09-2023 SARS-CoV-2 (COVID-19) Ab IA Ql INFLUENZA A (CEPHEID) Not Detected INFLUENZA B (CEPHEID) Not Detected SARS-COV-2 (CEPAzoooID) Not Detected This test was performed under the FDA's Emergency Use Authorization (EUA). Testing was performed using the Xpert Xpress SARS-CoV-2/Flu/RSV plus RT-PCR [employer] assay on the GeneXpert Xpress System. This test has not been approved for use in asymptomatic patients and its performance in this patient population has not been evaluated. Negative results do not rule out the presence of SARS-CoV-2/COVID-19. Fact sheets for this EUA can be found at the following links: For Healthcare Providers: https://www.PlayFilm.gov/media/ 216715/download For Patients: https://www.PlayFilm.gov/Azimo/ 637541/download [facility] Comment on above: Performed By: #### L [id number] #### SH [address] [address] Jaron Méndez M.D. [id number] ABDOMEN PELVIS WITHOUT CO NTRASTon 10-09-2023 [...] on MonOctober 09, 2023 7:43:05 PM EDT [facility] Comment on above: Order Comment: Jennifer retana [...] on MonOctober 09, 2023 9:59:46 PM EDT [facility] Comment on above: Order Comment: Jennifer retana [...] MonOctober 10, 2023 1:59:01 PM EDT [facility] Comment on above: Order Comment: Injur y/Trauma or Illness?:Illness/Other How long have you had these symptoms (acute/chronic)?:Chronic Reason for exam?:current smoker, 39 pack yrs, History of deep venous thrombosis, Factor V Leiden mutation (HCC), Lung nodule seen on imaging study, Screening for malignant neoplasm of respiratory organ Type of Exam?:Initial Additional signs and symptoms?:. ED Prov Noteon 10-09-2023 ED Prov Note Normal [facility] ED Prov Note ED PROVIDER NOTE [facility] NAME: Scott Obregon AGE: 63 y.o. : 1960 VISIT DATE: 10/09/2023 CSN: [id number] PCP: Ying Quispe DO Chief Complaint Patient [...] Skin: Negative (more content not included)... Normal [facility] H AND Ney 10-09-2023 H AND P Normal [facility] HEPATIC FUNCTION PANELon Albumin [Mass/Vol] 2.3 g/dL Low 3.2-5.2 [facility] Comment on above: Performed By: #### 4 5866 #### [facility] [address] [place], [place] [address] Jaron Méndez M.D. [id number] ALP [Catalytic activity/Vol] 70 U/L Normal 40-150 [facility] Comment on above: Performed By: #### 4 5866 #### [facility] [address] [place], [place] [address] Jaron Méndez M.D. [id number] ALT [Catalytic activity/Vol] 46 U/L Normal 14-65 [facility] Comment on above: Performed By: #### 4 5866 #### [facility] [address] [place] [address] Jaron Méndez M.D. [id number] AST [Catalytic activity/Vol] 55 U/L High 0-35 U/L [facility] Comment on above: Performed By: #### 4 5866 #### [facility] [address] [place], [place] [id number] Jaron Méndez M.D. [id number] Bilirubin [Mass/Vol] 0.6 mg/dL Normal 0.0-1.3 [facility] Comment on above: Performed By: #### 4 5866 #### [facility] [address] [place], [place] [address] Jaron Méndez M.D. [id number] Bilirubin.indirect [Mass/Vol] 0.3 mg/dL Normal 0.0-0.4 [facility] Comment on above: Performed By: #### 4 5866 #### [facility] [address] [place], [place] [id number] Jaron Méndez M.D. [id number] Protein [Mass/Vol] 7.2 g/dL Normal 6.0-8.0 [facility] Comment on above: Performed By: #### 4 5866 #### [facility] [address] [place] [address] Jaron Méndez M.D. [id number] MORPHOLOGYon 10-09-2023 OVAL SCAN Few [facility] Comment on above: Performed By: #### 4 6391 #### [facility] [address] [place] [address] Jaron Méndez M.D. [id number] PLATELET ESTIMATE Normal Normal [facility] Comment on above: Performed By: #### 4 6391 #### [facility] [address] [place] [address] Jaron Méndez M.D. [id number] RBC MORPH SCAN See Comment [facility] Comment on above: Result Comment: RBC Indices confirmed with manual peripheral smear review. Performed By: #### 4 6391 #### [facility] [address] [place], [place] [address] Jaron Méndez M.D. [id number] MR LUMBAR SPINE WITHOUT CONT [facility] 10-09-2023 MR LUMBAR SPINE WITHOUT CONTRAST EXAMINATION: [...] BASE EXCESS, ARTERIAL ISTAT -6 Low -2-2 [facility] Comment on above: Order Comment: Criti cherrie result acted upon time of test. Test performed at bedside. Performed By: #### 4 8737 ####[facility] [address] [place] [address] [id number] RMHPOC Glucose [Mass/Vol] 174 mg/dL High 65-99 [facility] Comment on above: Order Comment: Criti cherrie result acted upon time of test. Test performed at bedside. Performed By: #### 4 [id number] ####[facility] [address] [place] [address] [id number] RMHPOC HCO3 (Bld) [Moles/Vol] 19.6 mmol/L Low 22.0-26.0 [facility] Comment on above: Order Comment: Criti cherrie result acted upon time of test. Test performed at bedside. Performed By: #### 4 8741 ####[facility] [address] [place] [address] [id number] RMHPOC Hematocrit (Bld) [Volume fraction] 17 % Low 36-46 [facility] Comment on above: Order Comment: Criti cherrie result acted upon time of test. Test performed at bedside. Performed By: #### 4 [id number] ####[facility] [address] [place] [address] [id number] RMHPOC Hemoglobin (Bld) [Mass/Vol] 5.8 g/dL Off scale low 12.0-16.0 [facility] Comment on above: Order Comment: Criti cherrie result acted upon time of test. Test performed at bedside. Performed By: #### 4 8785 ####[facility] POCT LAB [address] [place] [address] [id number] RMHPOC Oxygen saturation in Blood 100.0 % High 92.0-99.0 [facility] Comment on above: Order Comment: Criti cherrie result acted upon time of test. Test performed at bedside. Performed By: #### 4 8785 ####[facility] POCT LAB [address] [place] [address] [id number] RMHPOC PCO2 ARTERIAL 38.7 mm Hg Normal 35.0-45.0 [facility] Comment on above: Order Comment: Criti cherrie result acted upon time of test. Test performed at bedside. Performed By: #### 4 [id number] ####[facility] POCT LAB [address] [place] [address] [id number] RMHPOC PH ARTERIAL 7.31 Low 7.35-7.45 [facility] Comment on above: Order Comment: Criti cherrie result acted upon time of test. Test performed at bedside. Performed By: #### 4 [id number] ####[facility] POCT LAB [address] [place] [address] [id number] RMHPOC PO2 ARTERIAL 387 mm Hg High 80-100 [facility] Comment on above: Order Comment: Criti cherrie result acted upon time of test. Test performed at bedside. Performed By: #### 4 [id number] ####[facility] POCT LAB [address] [place] [address] [id number] RMHPOC POC IONIZED CALCIUM 3.6 mg/dL Low 4.5-5.3 [facility] Comment on above: Order Comment: Criti cherrie result acted upon time of test. Test performed at bedside. Performed By: #### 4 [id number] ####[facility] POCT LAB [address] [place] [address] [id number] RMHPOC Potassium [Moles/Vol] 4.5 mmol/L Normal 3.5-5.1 [facility] Comment on above: Order Comment: Criti cherrie result acted upon time of test. Test performed at bedside. Performed By: #### 4 [id number] ####[facility] POCT LAB [address] [place] [address] [id number] RMHPOC Sodium [Moles/Vol] 130 mmol/L Low 135-145 [facility] Comment on above: Order Comment: Criti cherrie result acted upon time of test. Test performed at bedside. Performed By: #### 4 8795 ####[facility] POCT LAB [address] [place] [address] [id number] RMHPOC BASE EXCESS, ARTERIAL ISTAT -7 Low -2-2 [facility] Comment on above: Performed By: #### 4 8199 ####[facility] POCT LAB [address] [place] [address] [id number] RMHPOC Glucose [Mass/Vol] 189 mg/dL High 65-99 [facility] Comment on above: Performed By: #### 4 [id number] ####[facility] POCT LAB [address] [place] [address] [id number] RMHPOC HCO3 (Bld) [Moles/Vol] 18.8 mmol/L Low 22.0-26.0 [facility] Comment on above: Performed By: #### 4 [id number] ####[facility] POCT LAB [address] [place] [address] [id number] RMHPOC PCO2 ARTERIAL 39.9 mm Hg Normal 35.0-45.0 [facility] Comment on above: Performed By: #### 4 [id number] ####[facility] POCT LAB [address] [place] [address] [id number] RMHPOC PH ARTERIAL 7.28 Low 7.35-7.45 [facility] Comment on above: Performed By: #### 4 [id number] ####[facility] POCT LAB [address] [place] [address] [id number] RMHPOC PO2 ARTERIAL > High 80-100 [facility] Comment on above: Performed By: #### 4 1837 ####[facility] POCT LAB [address] [place] [address] [id number] RMHPOC POC HCT < Low 36-46 [facility] Comment on above: Performed By: #### 4 [id number] ####[facility] POCT LAB [address] [place] [address] [id number] RMHPOC POC IONIZED CALCIUM 3.8 mg/dL Low 4.5-5.3 [facility] Comment on above: Performed By: #### 4 1795 ####[facility] POCT LAB [address] [place] [address] [id number] RMHPOC Potassium [Moles/Vol] 4.1 mmol/L Normal 3.5-5.1 [facility] Comment on above: Performed By: #### 4 9362 ####[facility] POCT LAB [address] [place] [address] [id number] RMHPOC Sodium [Moles/Vol] 130 mmol/L Low 135-145 [facility] Comment on above: Performed By: #### 4 [id number] ####[facility] POCT LAB [address] [place] [address] [id number] RMHPOC POC ACTIVATED CLOTTING TIME - [facility] 10-09-2023 POC ACT CELITE 246 seconds Normal [facility] Comment on above: Performed By: #### 4 8122 ####[facility] POCT LAB [address] [place] [address] [id number] RMHPOC POC VBG LAB(EPOC) - [facility] 0 10-09-2023 BASE EXCESS, VENOUS -7.0 Low -2.0-2.0 [facility] Comment on above: Order Comment: [facility] has implemented the eGFR calculation approach that does not have a coefficient for race that conforms to the NKF-ASN Task Force Recommendations. Performed By: #### P [id number] ####[facility] [address] [place] [address] Glenn Gudino M.D. [id number] CALCIUM IONIZED 3.9 mg/dL Low 4.5-5.3 [facility] Comment on above: Order Comment: [facility] has implemented the eGFR calculation approach that does not have a coefficient for race that conforms to the NKF-ASN Task Force Recommendations. Performed By: #### P [id number] ####[facility] [address] [place] [address] Glenn Gudino M.D. [id number] Chloride [Moles/Vol] 102 mmol/L Normal 98-108 [facility] Comment on above: Order Comment: [facility] has implemented the eGFR calculation approach that does not have a coefficient for race that conforms to the NKF-ASN Task Force Recommendations. Performed By: #### P [id number] ####[facility] [address] [place] [address] Glenn Gudino M.D. [id number] CO2 [Moles/Vol] 18 mmol/L Low 21-32 [facility] Comment on above: Order Comment: [facility] has implemented the eGFR calculation approach that does not have a coefficient for race that conforms to the NKF-ASN Task Force Recommendations. Performed By: #### P [id number] ####[facility] [address] [place], [place] [address] Glenn Gudino M.D. [id number] Creatinine [Mass/Vol] 1.87 mg/dL High 0.60-1.20 [facility] Comment on above: Order Comment: [facility] has implemented the eGFR calculation approach that does not have a coefficient for race that conforms to the NKF-ASN Task Force Recommendations. Performed By: #### P [id number] ####[facility] [address] [place], [place] [address] Glenn Gudino M.D. [id number] Glucose [Mass/Vol] 119 mg/dL High 65-99 [facility] Comment on above: Order Comment: [facility] has implemented the eGFR calculation approach that does not have a coefficient for race that conforms to the NKF-ASN Task Force Recommendations. Performed By: #### P [id number] ####[facility] [address] [place] [address] Glenn Gudino M.D. [id number] Hematocrit (Bld) [Volume fraction] 24 % Low 36-46 [facility] Comment on above: Order Comment: [facility] has implemented the eGFR calculation approach that does not have a coefficient for race that conforms to the NKF-ASN Task Force Recommendations. Performed By: #### P [id number] ####[facility] [address] [place] [address] Glenn Gudino M.D. [id number] HEMOGLOBIN, CALCULATED 8.1 g/dL Low 12.0-16.0 [facility] Comment on above: Order Comment: [facility] has implemented the eGFR calculation approach that does not have a coefficient for race that conforms to the NKF-ASN Task Force Recommendations. Performed By: #### P [id number] ####[facility] [address] [place] [address] Glenn Gudino M.D. [id number] Oxygen saturation in Blood 80.9 % High 40.0-70.0 [facility] Comment on above: Order Comment: [facility] has implemented the eGFR calculation approach that does not have a coefficient for race that conforms to the NKF-ASN Task Force Recommendations. Performed By: #### P [id number] ####[facility] [address] [place] [address] Glenn Gudino M.D. [id number] PCO2 VENOUS 32.0 mm Hg Low 41.0-51.0 [facility] Comment on above: Order Comment: [facility] has implemented the eGFR calculation approach that does not have a coefficient for race that conforms to the NKF-ASN Task Force Recommendations. Performed By: #### P [id number] ####[facility] [address] [place] [address] Glenn Gudino M.D. [id number] PH VENOUS 7.35 Normal 7.32-7.42 [facility] Comment on above: Order Comment: [facility] has implemented the eGFR calculation approach that does not have a coefficient for race that conforms to the NKF-ASN Task Force Recommendations. Performed By: #### P [id number] ####[facility] [address] [place] [address] Glenn Gudino M.D. [id number] PO2 VENOUS 47 mm Hg High 25-40 [facility] Comment on above: Order Comment: [facility] has implemented the eGFR calculation approach that does not have a coefficient for race that conforms to the NKF-ASN Task Force Recommendations. Performed By: #### P [id number] ####[facility] [address] [place] [address] Glenn Gudino M.D. [id number] POC GFR 30 mL/min/1.73 m2 Low >=60 [facility] Comment on above: Order Comment: [facility] has implemented the eGFR calculation approach that does not have a coefficient for race that conforms to the NKF-ASN Task Force Recommendations. Result Comment: Joi mated GFR was calculated using the 2020 CKD-EPI creatinine equation. Performed By: #### P [id number] ####[facility] [address] [place] [address] Glenn Gudino M.D. [id number] POC LACTATE 2.8 mmol/L High 0.6-2.0 [facility] Comment on above: Order Comment: [facility] has implemented the eGFR calculation approach that does not have a coefficient for race that conforms to the NKF-ASN Task Force Recommendations. Performed By: #### P [id number] ####[facility] [address] [place] [address] Glenn Gudino M.D. [id number] Potassium [Moles/Vol] 4.4 mmol/L Normal 3.5-5.1 [facility] Comment on above: Order Comment: [facility] has implemented the eGFR calculation approach that does not have a coefficient for race that conforms to the NKF-ASN Task Force Recommendations.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 [...] MICHAEL Carcamo DO on 06/10/2022 10:53 AM [facility] Radiology Study observation (narrative) [facility] Ultrasound Duplex Venous Arm LEFTOrdered By: Philly Blake on 06-10-2022 [facility] Work Phone: XR Chest 1 Viewon 06-10-2022 No acute heart or lung disease identified. Workstation ID: [id number] Kliqed EXAMINATION: XR CHEST PA/AP 06/10/2022 10:33 am [...] infiltrates. Grossly no bony abnormality is appreciated. iWatt Alcides Higgins MD - 06/10/2022 EXAMINATION: XR CHEST PA/AP [...] or lung disease identified. Workstation ID: [id number] [facility] Radiology Study observation (narrative) [facility] XR Chest 1 ViewOrdered By: Kirk Garza on 06-10-2022 [facility] Work Phone: XR Foot Left 3+ Views (Stand ramy)on 06-17-2021 No fractures no dislocations no subluxations. No tumors appreciated. Kliqed [facility] Radiology Study observation (narrative) [facility] Basic Metabolic Panelon - Anion gap molar conc 10 mmol/L 10 - 20 mmol/L [facility] Calcium mass conc 8.3 mg/dL Low 8.4 - 10.2 mg/dL [facility] Chloride molar conc 111 mmol/L High 98 - 108 mmol/L [facility] Creatinine mass conc 0.99 mg/dL 0.4 - 1 .1 mg/dL [facility] GFR/1.73 sq M predicted among non-blacks MDRD vol rate/area (S/P/Bld) The eGFR should be used for monitoring renal function only and not for medication dosing. [facility] GFR/1.73 sq M.predicted CKD-EPI vol rate/area (S/P/Bld) 64 >=60 mL/min/1.7 3 m2 [facility] Glucose mass conc 169 mg/dL High 65 - 99 mg/dL [facility] HCO3 molar conc 23 mmol/L 21 - 32 mmol/L [facility] Interpretation and review of laboratory results Abnormal [facility] Potassium molar conc 4.4 mmol/L 3.5 - 5 .1 mmol/L [facility] Sodium molar conc 140 mmol/L 135 - 145 mmol/L [facility] Urea nitrogen mass conc 12 mg/dL 8 - 25 mg/dL [facility] Urea nitrogen/Creatinine mass ratio 12.1 mg/mg [facility] CBC WITH AUTO DIFFERENTIALon 09-14-2018 Basophils #/vol (Bld) 0.04 10*3/uL [facility] Basophils/100 WBC (Bld) 0.3 % [facility] Eosinophils #/vol (Bld) 0.14 10*3/uL [facility] Eosinophils/100 WBC (Bld) 1.2 % [facility] Erythrocyte distribution width Entitic volume (RBC) 13.0 % 11.6 - 14.8 % [facility] Hematocrit Volume Fraction (Bld) 41.5 % 36 - 46 % [facility] Hemoglobin mass conc (Bld) 13.9 g/dL 12 - 16 g/dL [facility] Immature granulocytes #/vol (Bld) 0.04 10*3/uL [facility] Immature granulocytes/100 WBC (Bld) 0.30 % [facility] Comment on above: The IG parameter is the percentage of metamyelocytes, myelocytes, and promyelocytes. Interpretation and review of laboratory results Abnormal [facility] Lymphocytes #/vol (Bld) 3.32 10*3/uL [facility] Lymphocytes/100 WBC (Bld) 27.5 % [facility] MCH Entitic mass (RBC) 29.0 pg 26 - [address] [facility] MCHC mass conc (RBC) 33.5 g/dL 31 - 37 g/dL [facility] MCV Entitic volume (RBC) 86.6 fL 80 - 100 fL [facility] Monocytes #/vol (Bld) 0.80 10*3/uL [facility] Monocytes/100 WBC (Bld) 6.6 % [facility] Neutrophils #/vol (Bld) 7.75 10*3/uL High [facility] Neutrophils/100 WBC (Bld) 64.1 % [facility] Platelet mean volume Entitic volume (Bld) 9.4 fL 9 - 15.5 fL [facility] Platelets #/vol (Bld) 293 10*3/uL [facility] RBC #/vol (Bld) 4.79 10*6/uL [facility] WBC #/vol (Bld) 12.09 10*3/uL [facility] CT KIDNEY STONEon 09-14-2018 EXAMINATION: CT KIDN [...] of L5-S1. No bony lesions are noted. [facility], Rad In Fu ji Speechq - 09/14/2018 [...] degenerative changes as noted. Workstation ID: [id number] [facility] 1. Findings consiste nt with moderate to prominent appendicitis. The appendix is enlarged with surrounding inflammation. No sign of appendicolith, abscess formation or free air. 2. Additional chronic and degenerative changes as noted. Workstation ID: [id number] [facility] Chem 7on 09-14-2018 Anion gap molar conc 16 mmol/L 10 - 20 mmol/L [facility] Chloride molar conc 105 mmol/L 98 - 108 mmol/L [facility] Creatinine mass conc 1.20 mg/dL High 0.4 - 1 .1 mg/dL [facility] GFR/1.73 sq M predicted among non-blacks MDRD vol rate/area (S/P/Bld) The eGFR should be used for monitoring renal function only and not for medication dosing. [facility] GFR/1.73 sq M.predicted CKD-EPI vol rate/area (S/P/Bld) 51 Low >=60 mL/min/1.7 3 m2 [facility] Glucose mass conc 201 mg/dL High 65 - 99 mg/dL [facility] HCO3 molar conc 23 mmol/L 21 - 32 mmol/L [facility] Interpretation and review of laboratory results Abnormal [facility] Potassium molar conc 3.5 mmol/L 3.5 - 5 .1 mmol/L [facility] Sodium molar conc 140 mmol/L 135 - 145 mmol/L [facility] Urea nitrogen mass conc 12 mg/dL 8 - 25 mg/dL [facility] Urea nitrogen/Creatinine mass ratio 10.0 mg/mg [facility] URINALYSISon 09-14-2018 Bacteria Auto Ql (U) None Seen None Se en /hpf [facility] Bilirubin Ql (U) Negative Negative [facility] th Clarity Refractometry automated Nom (U) Clear Clear [facility] Color Nom (U) Yellow Colorless, Yellow [facility] Epithelial cells.squamous Auto #/area (Urine sed) <1 [facility] Glucose Automated test strip mass conc (U) Negative Negative mg/dL [facility] Hemoglobin Automated test strip Ql (U) Negative Negative [facility] Interpretation and review of laboratory results Normal [facility] Ketones mass conc (U) Negative Negati ve mg/dL [facility] Leukocyte esterase Automated test strip Ql (U) Negative Negative [facility] Nitrite Automated test strip Ql (U) Negative Negative [facility] pH (U) 5.0 [pH] [facility] Protein mass conc (U) Negative Negati ve mg/dL [facility] Specific gravity Relative Density (U) 1.006 [facility] Urobilinogen mass conc (U) <2.0 <2.0 mg/dL [facility] WBC Auto #/area (Urine sed) <1 [facility] Microscopic examinat ion is performed on all urinalysis samples and only positive findings are reported. The test for blood on the chemical analytic portion of urinalysis may also be positive due to hemoglobinuria and myoglobinuria and if red blood cells are present they are quantified by microscopic examination. [facility] Hepatitis C Antibodyon 09-28 Hepatitis C Antibody Negative Normal Negative [facility] Comment on above: Result Comment: Test performed using VignaniAS immunoassay systemTest Performed by [facility] [id number] [place] [address] Performed By: #### T SH, LIPID ####Unless otherwise noted, all testing performed by [address] [id number]: [id number] Director: Jaron Méndez M.D.#### HEPCABS ####Unless otherwise noted, all testing performed by [address] [id number]: [id number] Director: Jaron Méndez M.D. Lipid Panelon 09-28-2017 Cholesterol 223 mg/dL High 100-199 [facility] Comment on above: Performed By: #### T SH, LIPID ####Unless otherwise noted, all testing performed by [address] [id number]: [id number] Director: Jaron Méndez M.D.#### HEPCABS ####Unless otherwise noted, all testing performed by [address] [id number]: [id number] Director: Jaron Méndez M.D. Cholesterol in VLDL mass conc 24 mg/dL Normal 5-40 [facility] Comment on above: Performed By: #### T SH, LIPID ####Unless otherwise noted, all testing performed by [address] [id number]: [id number] Director: Jaron Méndez M.D.#### HEPCABS ####Unless otherwise noted, all testing performed by [address] [phone]: [id number] Director: Jaron Méndez M.D. Cholesterol to HDL Ratio 5.2 {ratio} High 3.2-4.5 [facility] Comment on above: Result Comment: Funmilayo [place] Coronary Heart Disease Risk Factor (CHDRF):Average risk= 4.41/2 Average risk= 3.32 times Average risk= 7.1 Performed By: #### T SH, LIPID ####Unless otherwise noted, all testing performed by [address] [id number]: [id number] Director: Jaron Méndez M.D.#### HEPCABS ####Unless otherwise noted, all testing performed by [address] [phone]: [id number] Director: Jaron Méndez M.D. HDL Cholesterol 43 mg/dL Normal 40-59 [facility] Comment on above: Performed By: #### T SH, LIPID ####Unless otherwise noted, all testing performed by [address] [phone]: [id number] Director: Jaron Méndez M.D.#### HEPCABS ####Unless otherwise noted, all testing performed by [address] [phone]: [id number] Director: Jaron Méndez M.D. Interpretation and review of laboratory results Abnormal Invalid Interpretation Code [facility] LDL Cholesterol 156 mg/dL High 10 - 150 mg/dL [facility] LDL Cholesterol 156 mg/dL High 10-150 [facility] Comment on above: Performed By: #### T SH, LIPID ####Unless otherwise noted, all testing performed by [address] [phone]: [id number] Director: Jaron Méndez M.D.#### HEPCABS ####Unless otherwise noted, all testing performed by [address] [phone]: [id number] Director: Jaron Méndez M.D. Triglyceride 118 mg/dL Normal 30-150 [facility] Comment on above: Performed By: #### T SH, LIPID ####Unless otherwise noted, all testing performed by [address] [phone]: [id number] Director: Jaron Ménedz M.D.#### HEPCABS ####Unless otherwise noted, all testing performed by [address] [phone]: [id number] Director: Jaron Méndez M.D. VLDL 24 mg/dL Invalid Interpretation Code 5 - 40 mg/dL [facility] TSHon 09-28-2017 Thyroid stimulating hormone (TSH) 2.63 uIU/mL Invalid Interpretation Code 0.32 - 5.00 [facility] Thyroid stimulating hormone (TSH) 2.63 uIU/mL Normal 0.32-5.00 [facility] Comment on above: Result Comment: Samp les from patients routinely receiving high dose biotin therapy(100-300 mg/day) may show falsely decreased results. Please correlateclinically. Performed By: #### T SH, LIPID ####Unless otherwise noted, all testing performed by [address] [phone]: [id number] Director: Jaron Méndez M.D.#### HEPCABS ####Unless otherwise noted, all testing performed by [place] [address] [place], [place] [phone]: [id number] Director: Jaron Méndez M.D. XR Lumbar Spine 2-3 Views (S tandard)on 09-05-2017 INR in blood by coagulation X-ray lumbosacral spine 2 views indication pain reveal mild levoscoliosis with lateral osteophyte formation of the L5-S1 region with slight narrowing of the L5 vertebral body more on the left than the right lateral reveals anterior osteophytes of the L4-5 L5-S1 region with mild loss of normal lordosis with no acute findings otherwise Invalid Interpretation Code [facility] Vital Signs Date Time Vital Sign Value Performing Clinician Facility 09-15-2024 07:00-0400 Body temperature 98.6 [degF] Dr. Ethan Rodriguez MD Work Phone: [facility] 09-15-2024 07:00-0400 Diastolic blood pressure 85 mm[Hg] Dr. Ethan Rodriguez MD Work Phone: [facility] 09-15-2024 07:00-0400 Heart rate 100 /min Dr. Ethan Rodriguez MD Work Phone: [facility] 09-15-2024 07:00-0400 Inhaled oxygen flow rate 4 L/min Dr. Ethan Rodriguez MD Work Phone: [facility] 09-15-2024 07:00-0400 Respiratory rate 20 /min Dr. Ethan Rodriguez MD Work Phone: [facility] 09-15-2024 07:00-0400 SaO2% (BldA) [Mass fraction] 96 % Dr. Ethan Rodriguez MD Work Phone: [facility] 09-15-2024 07:00-0400 Systolic blood pressure 145 mm[Hg] Dr. Ethan Rodriguez MD Work Phone: 5(774)019-498338 [place] [address] 09-15-2024 04:35-0400 Inhaled oxygen concentration 10 % Dr. Ethan Rodriguez MD Work Phone: 4(208)713-952944 [address] 09-15-2024 04:23-0400 Body height 182.[address] Ethan Rodriguez MD Work Phone: 9(422)734-575414 [place] [address] 09-15-2024 04:23-0400 Body mass index (BMI) [Ratio] 16.5 kg/m2 Dr. Ethan Rodriguez MD Work Phone: 6(034)817-981914 [place] [address] 09-15-2024 04:23-0400 Body weight 55.[address] Ethan Rodriguez MD Work Phone: 4(082)039-033214 [place] [address] 08-31-2024 16:15-0400 Inhaled oxygen flow rate 3 L/min Dr. Ethan Rodriguez MD Work Phone: [facility] 08-31-2024 16:15-0400 SaO2% (BldA) [Mass fraction] 96 % Dr. Ethan Rodriguez MD Work Phone: 2(629)599-573138 [place] [address] 08-31-2024 14:00-0400 Body temperature 97 [degF] Dr. Ethan Rodriguez MD Work Phone: [facility] 08-31-2024 14:00-0400 Diastolic blood pressure 71 mm[Hg] Dr. Ethan Rodriguez MD Work Phone: [facility] 08-31-2024 14:00-0400 Heart rate 70 /min Dr. Ethan Rodriguez MD Work Phone: 1(675)744-237914 [place] [address] 08-31-2024 14:00-0400 Respiratory rate 16 /min Dr. Ethan Rodriguez MD Work Phone: [facility] 08-31-2024 14:00-0400 Systolic blood pressure 126 mm[Hg] Dr. Ethan Rodriguez MD Work Phone: [facility] 08-31-2024 09:38-0400 Body weight 54.[address] Ethan Rodriguez MD Work Phone: [facility] 08-17-2024 09:46-0400 Body temperature 97.8 [degF] Dr. Ethan Rodriguez MD Work Phone: [facility] 08-17-2024 09:46-0400 Diastolic blood pressure 96 mm[Hg] Dr. Ethan Rodriguez MD Work Phone: 6(683)071-685138 [place] [address] 08-17-2024 09:46-0400 Heart rate 107 /min Dr. Ethan Rodriguez MD Work Phone: 0(698)891-419738 [place] [address] 08-17-2024 09:46-0400 Inhaled oxygen flow rate 2 L/min Dr. Ethan Rodriguez MD Work Phone: 1(672)671-949838 [place] [address] 08-17-2024 09:46-0400 Respiratory rate 18 /min Dr. Ethan Rodriguez MD Work Phone: 3(608)099-101744 [address] 08-17-2024 09:46-0400 SaO2% (BldA) [Mass fraction] 97 % Dr. Ethan Rodriguez MD Work Phone: 8(264)374-502738 [place] [address] 08-17-2024 09:46-0400 Systolic blood pressure 162 mm[Hg] Dr. Ethan Rodriguez MD Work Phone: [facility] 08-17-2024 05:07-0400 Body mass index (BMI) [Ratio] 14.6 kg/m2 Dr. Ethan Rodriguez MD Work Phone: 1(900)496-301238 [place] [address] 08-17-2024 05:07-0400 Body weight [address] Ethan Rodriguez MD Work Phone: [facility] 08-14-2024 14:07-0400 Body height 182.[address] Ethan Rodriguez MD Work Phone: 1(201)375-713838 [place] [address] 08-14-2024 12:20-0400 Body temperature 97.8 [degF] Dr. Ethan Rodriguez MD Work Phone: 3(296)788-291114 [place] [address] 08-14-2024 12:20-0400 Diastolic blood pressure 70 mm[Hg] Dr. Ethan Rodriguez MD Work Phone: 2(471)884-802914 [place] [address] 08-14-2024 12:20-0400 Heart rate 90 /min Dr. Ethan Rodriguez MD Work Phone: 8(564)276-700414 [place] [address] 08-14-2024 12:20-0400 Respiratory rate 17 /min Dr. Ethan Rodriguez MD Work Phone: 2(719)993-619414 [place] [address] 08-14-2024 12:20-0400 SaO2% (BldA) [Mass fraction] 94 % Dr. Ethan Rodriguez MD Work Phone: 8(864)588-463114 [place] [address] 08-14-2024 12:20-0400 Systolic blood pressure 95 mm[Hg] Dr. Ethan Rodriguez MD Work Phone: 3(022)601-217014 [place] [address] 08-14-2024 11:00-0400 Inhaled oxygen flow rate 4 L/min Dr. Ethan Rodriguez MD Work Phone: 4(215)239-522414 [place] [address] 08-14-2024 07:25-0400 Body height 182.[address] Ethan Rodriguez MD Work Phone: 4(870)894-461614 [place] [address] 08-14-2024 07:25-0400 Body mass index (BMI) [Ratio] 16.7 kg/m2 Dr. Ethan Rodriguez MD Work Phone: 0(851)749-344914 [place] [address] 08-14-2024 07:25-0400 Body weight [address] Ethan Rodriguez MD Work Phone: 2(164)594-695914 [place] [address] 08-13-2024 15:30-0400 Inhaled oxygen flow rate 3 L/min Dr. Ethan Rodriguez MD Work Phone: 3(493)175-010214 [place] [address] 08-13-2024 14:36-0400 Body temperature 99 [degF] Dr. Ethan Rodriguez MD Work Phone: 3(743)507-698614 [place] [address] 08-13-2024 14:36-0400 Diastolic blood pressure 69 mm[Hg] Dr. Ethan Rodriguez MD Work Phone: [facility] 08-13-2024 14:36-0400 Heart rate 89 /min Dr. Ethan Rodriguez MD Work Phone: [facility] 08-13-2024 14:36-0400 Respiratory rate 18 /min Dr. Ethan Rodriguez MD Work Phone: [facility] 08-13-2024 14:36-0400 SaO2% (BldA) [Mass fraction] 100 % Dr. Ethan Rodriguez MD Work Phone: [facility] 08-13-2024 14:36-0400 Systolic blood pressure 144 mm[Hg] Dr. Ethan Rodriguez MD Work Phone: [facility] 08-12-2024 12:30-0400 Body mass index (BMI) [Ratio] 11.9 kg/m2 Dr. Ethan Rodriguez MD Work Phone: [facility] 08-12-2024 12:30-0400 Body weight [address] Ethan Rodriguez MD Work Phone: 5(302)558-193838 [place] [address] 08-06-2024 11:09-0400 Inhaled oxygen concentration 95 % Dr. Ethan Rodriguez MD Work Phone: [facility] 07-29-2024 17:48-0500 Body temperature 98.5 [degF] Dr. Ethan Rodriguez MD Work Phone: [facility] 07-29-2024 17:48-0500 Diastolic blood pressure 72 mm[Hg] Dr. Ethan Rodriguez MD Work Phone: [facility] 07-29-2024 17:48-0500 Heart rate 78 /min Dr. Ethan Rodriguez MD Work Phone: [facility] 07-29-2024 17:48-0500 Respiratory rate 18 /min Dr. Ethan Rodriguez MD Work Phone: [facility] 07-29-2024 17:48-0500 SaO2% (BldA) [Mass fraction] 97 % Dr. Ethan Rodriguez MD Work Phone: 5(486)179-179638 [place] [address] 07-29-2024 17:48-0500 Systolic blood pressure 149 mm[Hg] Dr. Ethan Rodriguez MD Work Phone: 4(483)634-519314 [place] [address] 07-29-2024 14:55-0500 Inhaled oxygen flow rate 2 L/min Dr. Ethan Rodriguez MD Work Phone: 6(372)508-569214 [place] [address] 07-29-2024 12:02-0500 Body weight 37.[address] Ethan Rodriguez MD Work Phone: 7(767)395-447014 [place] [address] 07-29-2024 11:30-0500 Body mass index (BMI) [Ratio] 11.2 kg/m2 Dr. Ethan Rodrgiuez MD Work Phone: 1(319)843-387814 [place] [address] 07-18-2024 18:01-0500 Diastolic blood pressure 66 mm[Hg] Dr. Ethan Rodriguez MD Work Phone: 2(399)100-369614 [place] [address] 07-18-2024 18:01-0500 Heart rate 62 /min Dr. Ethan Rodriguez MD Work Phone: 9(636)424-945114 [place] [address] 07-18-2024 18:01-0500 Inhaled oxygen flow rate 3 L/min Dr. Ethan Rodriguez MD Work Phone: 3(015)730-484614 [place] [address] 07-18-2024 18:01-0500 Respiratory rate 15 /min Dr. Ethan Rodriguez MD Work Phone: 3(940)210-097238 [place] [address] 07-18-2024 18:01-0500 SaO2% (BldA) [Mass fraction] 100 % Dr. Ethan Rodriguez MD Work Phone: 5(452)619-805914 [place] [address] 07-18-2024 18:01-0500 Systolic blood pressure 140 mm[Hg] Dr. Ethan Rodriguez MD Work Phone: 3(994)272-185714 [place] [address] 07-18-2024 15:40-0500 Body temperature 97.4 [degF] Dr. Ethan Rodriguez MD Work Phone: 9(440)164-731714 [place] [address] 07-18-2024 09:50-0500 Body mass index (BMI) [Ratio] 14.6 kg/m2 Dr. Ethan Rodriguez MD Work Phone: 5(651)470-426214 [place] [address] 07-18-2024 09:50-0500 Body weight 49.[address] Ethan Rodriguez MD Work Phone: 4(824)657-254214 [place] [address] 06-05-2024 15:34-0500 Body temperature 97.3 [degF] Dr. Ethan Rodriguez MD Work Phone: 5(934)409-051814 [place] [address] 06-05-2024 15:34-0500 Diastolic blood pressure 60 mm[Hg] Dr. Ethan Rodriguez MD Work Phone: 3(058)509-814014 [place] [address] 06-05-2024 15:34-0500 Heart rate 98 /min Dr. Ethan Rodriguez MD Work Phone: 4(618)349-103514 [place] [address] 06-05-2024 15:34-0500 Respiratory rate 16 /min Dr. Ethan Rodriguez MD Work Phone: 7(652)703-056814 [place] [address] 06-05-2024 15:34-0500 Systolic blood pressure 90 mm[Hg] Dr. Ethan Rodriguez MD Work Phone: 9(697)378-064414 [place] [address] 04-30-2024 13:45-0500 Body mass index (BMI) [Ratio] 15 kg/m2 Dr. Ethan Rodriguez MD Work Phone: 0(311)731-888414 [place] [address] 04-30-2024 13:45-0500 Body weight 48.[address] Ethan Rodriguez MD Work Phone: 2(084)771-814214 [place] [address] 04-30-2024 13:45-0500 Diastolic blood pressure 81 mm[Hg] Dr. Ethan Rodriguez MD Work Phone: 7(436)793-577114 [place] [address] 04-30-2024 13:45-0500 Respiratory rate 18 /min Dr. Ethan Rodriguez MD Work Phone: 6(594)538-077614 [place] [address] 04-30-2024 13:45-0500 Systolic blood pressure 112 mm[Hg] Dr. Ethan Rodriguez MD Work Phone: 4(054)403-386814 [place] [address] 04-04-2024 10:22-0500 Body height 182.9 cm Cate Contreras [employer]ING [employer] OPERATOR Work Phone: [facility] 04-04-2024 10:22-0500 Body mass index (BMI) [Ratio] 15.6 kg/m2 Cate Contreras [employer]ING [employer] MACHINE OPERATOR Work Phone: [facility] 04-04-2024 10:22-0500 Body weight 52.16 kg Cate Contreras W[employer]ING [employer] MACHINE OPERATOR Work Phone: [facility] 04-04-2024 10:22-0500 Diastolic blood pressure 60 mm[Hg] Cate Contreras W[employer]ING [employer] MACHINE OPERATOR Work Phone: [facility] 04-04-2024 10:22-0500 Heart rate 94 /min Cate Contreras [employer]ING [employer] MACHINE OPERATOR Work Phone: [facility] 04-04-2024 10:22-0500 Respiratory rate 12 /min Cate Contreras W[employer]ING [employer] MACHINE OPERATOR Work Phone: [facility] 04-04-2024 10:22-0500 SaO2% (BldA) [Mass fraction] 92 % Cate Contreras [employer]ING [employer] MACHINE OPERATOR Work Phone: [facility] 04-04-2024 10:22-0500 Systolic blood pressure 82 mm[Hg] Cate Contreras W[employer]ING [employer] MACHINE OPERATOR Work Phone: [facility] 01-09-2024 12:36-0400 Diastolic blood pressure 97 mm[Hg] Sarath Rey MD Work Phone: [facility] 01-09-2024 12:36-0400 Heart rate 73 /min Sarath Rey MD Work Phone: [facility] 01-09-2024 12:36-0400 Systolic blood pressure 146 mm[Hg] Sarath Rey MD Work Phone: [facility] 01-09-2024 12:30-0400 Body height 180.3 cm Sarath Rey MD Work Phone: [facility] 01-09-2024 12:30-0400 Body mass index (BMI) [Ratio] 16.46 kg/m2 Sarath Rey MD Work Phone: [facility] 01-09-2024 12:30-0400 Body weight 53.52 kg Sarath Rey MD Work Phone: [facility] 01-03-2024 07:49-0400 Body temperature 97.3 [degF] Makenzie Garza RN [facility] 01-03-2024 07:49-0400 Diastolic blood pressure 82 mm[Hg] Makenzie Garza RN [facility] 01-03-2024 07:49-0400 Heart rate 72 /min Makenzie Garza RN [facility] 01-03-2024 07:49-0400 Respiratory rate 18 /min Makenzie Garza RN [facility] 01-03-2024 07:49-0400 SaO2% (BldA) [Mass fraction] 94 % Makenzie Garza RN [facility] 01-03-2024 07:49-0400 Systolic blood pressure 144 mm[Hg] Makenzie Garza RN [facility] 12-27-2023 16:20-0400 Body mass index (BMI) [Ratio] 16.32 kg/m2 Nahid Lindsay PT [facility] 12-27-2023 16:20-0400 Body temperature 98.1 [degF] Nahid Lindsay PT [facility] 12-27-2023 16:20-0400 Body weight 53.07 kg Nahid Lindsay PT [facility] 12-27-2023 16:20-0400 Diastolic blood pressure 82 mm[Hg] Nahid Lindsay PT [facility] 12-27-2023 16:20-0400 Heart rate 62 /min Nahid Lindsay PT [facility] 12-27-2023 16:20-0400 Respiratory rate 16 /min Nahid Lindsay PT [facility] 12-27-2023 16:20-0400 SaO2% (BldA) [Mass fraction] 96 % Nahid Lindsay PT [facility] 12-27-2023 16:20-0400 Systolic blood pressure 124 mm[Hg] Nahid Lindsay PT [facility] 12-27-2023 12:35-0400 Body temperature 97.11 [degF] Antonietta Aleshia [facility] 12-27-2023 12:35-0400 Diastolic blood pressure 80 mm[Hg] Antonietta Aleshia [facility] 12-27-2023 12:35-0400 Heart rate 72 /min Antonietta Aleshia [facility] 12-27-2023 12:35-0400 Respiratory rate 16 /min Antonietta Aleshia [facility] 12-27-2023 12:35-0400 SaO2% (BldA) [Mass fraction] 93 % Antonietta Monk [facility] 12-27-2023 12:35-0400 Systolic blood pressure 122 mm[Hg] [facility] 12-26-2023 11:59-0400 Diastolic blood pressure 87 mm[Hg] Sarath Rey MD Work Phone: [facility] 12-26-2023 11:59-0400 Heart rate 65 /min Sarath Rey MD Work Phone: [facility] 12-26-2023 11:59-0400 Systolic blood pressure 145 mm[Hg] Sarath Rey MD Work Phone: [facility] 12-26-2023 11:53-0400 Body height 180.3 cm Sarath Rey MD Work Phone: [facility] 12-26-2023 11:53-0400 Body mass index (BMI) [Ratio] 16.18 kg/m2 Sarath Rey MD Work Phone: [facility] 12-26-2023 11:53-0400 Body weight 52.62 kg Sarath Rey MD Work Phone: [facility] 12-25-2023 14:00-0400 Body temperature 96.91 [degF] [facility] 12-25-2023 14:00-0400 Diastolic blood pressure 90 mm[Hg] [facility] 12-25-2023 14:00-0400 Heart rate 80 /min [facility] 12-25-2023 14:00-0400 Respiratory rate 16 /min [facility] 12-25-2023 14:00-0400 Systolic blood pressure 147 mm[Hg] [facility] 12-20-2023 16:23-0400 Body temperature 98.8 [degF] Adilene Simpsonoliver [facility] 12-20-2023 16:23-0400 Diastolic blood pressure 93 mm[Hg] Adilene Antoniou [facility] 12-20-2023 16:23-0400 Heart rate 66 /min [facility] 12-20-2023 16:23-0400 Respiratory rate 16 /min [facility] 12-20-2023 16:23-0400 SaO2% (BldA) [Mass fraction] 98 % [facility] 12-20-2023 16:23-0400 Systolic blood pressure 150 mm[Hg] [facility] 12-20-2023 12:22-0400 Body temperature 97.7 [degF] Ernestina Moody [facility] 12-20-2023 12:22-0400 Diastolic blood pressure 75 mm[Hg] Ernestina Moody [facility] 12-20-2023 12:22-0400 Heart rate 70 /min Ernestina Moody [facility] 12-20-2023 12:22-0400 Respiratory rate 16 /min Ernestina Moody [facility] 12-20-2023 12:22-0400 SaO2% (BldA) [Mass fraction] 98 % Ernestina Moody [facility] 12-20-2023 12:22-0400 Systolic blood pressure 148 mm[Hg] Ernestina Moody [facility] 12-18-2023 12:33-0400 Diastolic blood pressure 87 mm[Hg] Ernestina Moody [facility] 12-18-2023 12:33-0400 Respiratory rate 16 /min Ernestina Moody [facility] 12-18-2023 12:33-0400 Systolic blood pressure 153 mm[Hg] Ernestina Moody [facility] 12-18-2023 12:08-0400 Body temperature 97 [degF] Ernestina Moody [facility] 12-18-2023 12:08-0400 Heart rate 59 /min Ernestina Moody [facility] 12-14-2023 11:15-0400 Body temperature 97 [degF] Ernestina Moody [facility] 12-14-2023 11:15-0400 Diastolic blood pressure 72 mm[Hg] Ernestina [facility] 12-14-2023 11:15-0400 Heart rate 62 /min Ernestina Moody [facility] 12-14-2023 11:15-0400 Respiratory rate 16 /min Ernestina [facility] 12-14-2023 11:15-0400 SaO2% (BldA) [Mass fraction] 97 % Ernestina Moody [facility] 12-14-2023 11:15-0400 Systolic blood pressure 117 mm[Hg] Ernestina Moody DIRECTOR OF FOOD AND BEVERAGE SERVICES [facility] 12-13-2023 13:12-0400 Body temperature 97 [degF] Makenzie Garza RN [facility] 12-13-2023 13:12-0400 Diastolic blood pressure 68 mm[Hg] Makenzie Garza RN [facility] 12-13-2023 13:12-0400 Heart rate 56 /min Makenzie Garza RN [facility] 12-13-2023 13:12-0400 Respiratory rate 18 /min Makenzie Garza RN [facility] 12-13-2023 13:12-0400 SaO2% (BldA) [Mass fraction] 99 % Makenzie Garza RN [facility] 12-13-2023 13:12-0400 Systolic blood pressure 118 mm[Hg] Makenzie Garza RN [facility] 12-13-2023 11:13-0400 Body temperature 97.2 [degF] Ernestina [facility] 12-13-2023 11:13-0400 Diastolic blood pressure 88 mm[Hg] Ernestina [facility] 12-13-2023 11:13-0400 Heart rate 64 /min Ernestina [facility] 12-13-2023 11:13-0400 Respiratory rate 16 /min Ernestina [facility] 12-13-2023 11:13-0400 Systolic blood pressure 140 mm[Hg] Ernestina [facility] 12-06-2023 14:27-0400 Body mass index (BMI) [Ratio] 15.9 kg/m2 Nahid Lindsay PT [facility] 12-06-2023 14:27-0400 Body temperature 98.1 [degF] Nahid Lindsay PT [facility] 12-06-2023 14:27-0400 Body weight 51.71 kg Nahid Lindsay PT [facility] 12-06-2023 14:27-0400 Diastolic blood pressure 74 mm[Hg] Nahid Lindsay PT [facility] 12-06-2023 14:27-0400 Heart rate 76 /min Nahid Lindsay PT [facility] 12-06-2023 14:27-0400 Respiratory rate 16 /min Nahid Lindsay PT [facility] 12-06-2023 14:27-0400 SaO2% (BldA) [Mass fraction] 96 % Nahid Lindsay PT [facility] 12-06-2023 14:27-0400 Systolic blood pressure 128 mm[Hg] Nahid Lindsay PT [facility] 12-06-2023 10:29-0400 Body temperature 97.7 [degF] Makenzie Garza RN [facility] 12-06-2023 10:29-0400 Diastolic blood pressure 78 mm[Hg] Makenzie Garza RN [facility] 12-06-2023 10:29-0400 Heart rate 88 /min Makenzie Garza RN [facility] 12-06-2023 10:29-0400 Respiratory rate 16 /min Makenzie Garza RN [facility] 12-06-2023 10:29-0400 Systolic blood pressure 148 mm[Hg] Makenzie Garza RN [facility] 12-05-2023 11:20-0400 Body temperature 97.7 [degF] Ernestina [facility] 12-05-2023 11:20-0400 Diastolic blood pressure 73 mm[Hg] Ernestina [facility] Comment on above: pt had not taken BP medication yet 12-05-2023 11:20-0400 Heart rate 69 /min Ernestina Moody [facility] 12-05-2023 11:20-0400 Respiratory rate 16 /min Ernestina [facility] 12-05-2023 11:20-0400 SaO2% (BldA) [Mass fraction] 98 % Ernestina Moody [facility] 12-05-2023 11:20-0400 Systolic blood pressure 150 mm[Hg] Ernestina Moody [facility] Comment on above: pt had not taken BP medication yet 11-29-2023 13:07-0400 Body temperature 98.1 [degF] Sol Bui OT [facility] 11-29-2023 13:07-0400 Diastolic blood pressure 76 mm[Hg] Sol Bui OT [facility] 11-29-2023 13:07-0400 Heart rate 62 /min Sol Bui OT [facility] 11-29-2023 13:07-0400 Respiratory rate 14 /min Sol Bui OT [facility] 11-29-2023 13:07-0400 Systolic blood pressure 139 mm[Hg] Sol Bui OT [facility] 11-29-2023 11:44-0400 Body temperature 97.11 [degF] Adilene Simpsonoliver [facility] 11-29-2023 11:44-0400 Diastolic blood pressure 77 mm[Hg] Adilene Calvinoliver [facility] 11-29-2023 11:44-0400 Heart rate 61 /min [facility] 11-29-2023 11:44-0400 Respiratory rate 18 /min Adilene Albright [facility] 11-29-2023 11:44-0400 SaO2% (BldA) [Mass fraction] 100 % [facility] 11-29-2023 11:44-0400 Systolic blood pressure 127 mm[Hg] Adilene Albright [facility] 11-29-2023 09:19-0400 Body temperature 97.5 [degF] Ernestina Moody [facility] 11-29-2023 09:19-0400 Diastolic blood pressure 80 mm[Hg] Ernestina Moody [facility] 11-29-2023 09:19-0400 Heart rate 64 /min Ernestina Moody [facility] 11-29-2023 09:19-0400 Respiratory rate 16 /min Ernestina Moody [facility] 11-29-2023 09:19-0400 SaO2% (BldA) [Mass fraction] 99 % Ernestina Moody [facility] 11-29-2023 09:19-0400 Systolic blood pressure 127 mm[Hg] Ernestina Moody [facility] 11-28-2023 10:13-0400 Body temperature 97.2 [degF] Ernestina Moody [facility] 11-28-2023 10:13-0400 Diastolic blood pressure 82 mm[Hg] Ernestina Moody [facility] 11-28-2023 10:13-0400 Heart rate 69 /min Ernestina Moody [facility] 11-28-2023 10:13-0400 Respiratory rate 16 /min Ernestina Moody [facility] 11-28-2023 10:13-0400 SaO2% (BldA) [Mass fraction] 100 % Ernestina [facility] 11-28-2023 10:13-0400 Systolic blood pressure 133 mm[Hg] Ernestina Moody [facility] 11-27-2023 15:51-0400 Body temperature 97.59 [degF] [facility]23 15:51-0400 Diastolic blood pressure 76 mm[Hg] [facility] 11-27-2023 15:51-0400 Heart rate 83 /[facility] 11-27-2023 15:51-0400 Respiratory rate 16 /min Giovany [facility] 11-27-2023 15:51-0400 SaO2% (BldA) [Mass fraction] 99 % Giovany [facility] 11-27-2023 15:51-0400 Systolic blood pressure 111 mm[Hg] Giovany [facility] 11-24-2023 15:47-0400 Body temperature 98.71 [degF] [facility] 11-24-2023 15:47-0400 Diastolic blood pressure 83 mm[Hg] [facility] 11-24-2023 15:47-0400 Heart rate 69 /min [facility] 11-24-2023 15:47-0400 Respiratory rate 16 /min [facility] 11-24-2023 15:47-0400 SaO2% (BldA) [Mass fraction] 99 % [facility] 11-24-2023 15:47-0400 Systolic blood pressure 163 mm[Hg] [facility] 11-23-2023 16:05-0400 Body temperature 97.7 [degF] [facility] 11-23-2023 16:05-0400 Diastolic blood pressure 89 mm[Hg] [facility] 11-23-2023 16:05-0400 Heart rate 58 /min [facility] 11-23-2023 16:05-0400 Respiratory rate 16 /min [facility] 11-23-2023 16:05-0400 SaO2% (BldA) [Mass fraction] 99 % [facility] 11-23-2023 16:05-0400 Systolic blood pressure 140 mm[Hg] Giovany [facility] 11-23-2023 13:17-0400 Diastolic blood pressure 80 mm[Hg] Ying Quispe DO Work Phone: [facility] 11-23-2023 13:17-0400 Systolic blood pressure 104 mm[Hg] Ying Quispe DO Work Phone: [facility] 11-23-2023 13:11-0400 Body height 180.3 cm Ying Quispe DO Work Phone: [facility] 11-23-2023 13:11-0400 Body mass index (BMI) [Ratio] 16.01 kg/m2 Ying Quispe DO Work Phone: [facility] 11-23-2023 13:11-0400 Body temperature 98.29 [degF] Ying Quispe DO Work Phone: [facility] 11-23-2023 13:11-0400 Body weight 52.07 kg Ying Quispe DO Work Phone: [facility] 11-23-2023 13:11-0400 Heart rate 90 /min Ying Quispe DO Work Phone: [facility] 11-23-2023 13:11-0400 Respiratory rate 16 /min Ying Quispe DO Work Phone: [facility] 11-23-2023 09:59-0400 Body temperature 96.8 [degF] Ernestina [facility] 11-23-2023 09:59-0400 Diastolic blood pressure 81 mm[Hg] Ernestina Moody [facility] 11-23-2023 09:59-0400 Heart rate 67 /min Ernestina [facility] 11-23-2023 09:59-0400 Respiratory rate 16 /min Ernestina [facility] 11-23-2023 09:59-0400 Systolic blood pressure 157 mm[Hg] Ernestina Moody [facility] 11-22-2023 13:56-0400 Body temperature 98.49 [degF] Abigail Domka WELDING PANTOGRAPH MACHINE OPERATOR Work Phone: [facility] 11-22-2023 13:56-0400 Diastolic blood pressure 74 mm[Hg] Abigail Domka WELDING PANTOGRAPH MACHINE OPERATOR Work Phone: [facility] 11-22-2023 13:56-0400 Heart rate 89 /min Abigail Domka WELDING PANTOGRAPH MACHINE OPERATOR Work Phone: [facility] 11-22-2023 13:56-0400 Respiratory rate 16 /min Abigail Domka WELDING PANTOGRAPH MACHINE OPERATOR Work Phone: [facility] 11-22-2023 13:56-0400 SaO2% (BldA) [Mass fraction] 93 % Abigail Estrella WELDING PANTOGRAPH MACHINE OPERATOR Work Phone: [facility] 11-22-2023 13:56-0400 Systolic blood pressure 114 mm[Hg] Abigail Estrella WELDING PANTOGRAPH MACHINE OPERATOR Work Phone: [facility] 11-21-2023 13:21-0400 Body temperature 97.11 [degF] Adilene Albright [facility] 11-21-2023 13:21-0400 Diastolic blood pressure 64 mm[Hg] Adileneher Albright [facility] 11-21-2023 13:21-0400 Heart rate 60 /min Adileneher Albright [facility] 11-21-2023 13:21-0400 Respiratory rate 16 /min Adileneher Albright [facility] 11-21-2023 13:21-0400 SaO2% (BldA) [Mass fraction] 100 % Adileneher Albright [facility] 11-21-2023 13:21-0400 Systolic blood pressure 127 mm[Hg] Adilene Albright [facility] 11-21-2023 12:15-0400 Body temperature 97 [degF] Ernestina Moody [facility] 11-21-2023 12:15-0400 Diastolic blood pressure 63 mm[Hg] Ernestina Moody [facility] 11-21-2023 12:15-0400 Heart rate 59 /min Ernestina Moody [facility] 11-21-2023 12:15-0400 Respiratory rate 16 /min Ernestina Moody [facility] 11-21-2023 12:15-0400 SaO2% (BldA) [Mass fraction] 100 % Ernestina Moody [facility] 11-21-2023 12:15-0400 Systolic blood pressure 121 mm[Hg] Ernestina Moody [facility] 11-17-2023 15:18-0400 Body temperature 97.5 [degF] [facility]-17-2023 15:18-0400 Diastolic blood pressure 86 mm[Hg] [facility] 11-17-2023 15:18-0400 Heart rate 75 /min [facility] 11-17-2023 15:18-0400 Respiratory rate 16 /min [facility] 11-17-2023 15:18-0400 SaO2% (BldA) [Mass fraction] 99 % Giovany [facility] 11-17-2023 15:18-0400 Systolic blood pressure 148 mm[Hg] Giovany [facility] 11-17-2023 08:07-0400 Diastolic blood pressure 81 mm[Hg] Tylor Kruger MD Work Phone: [facility] 11-17-2023 08:07-0400 Heart rate 65 /min Tylor Kruger MD Work Phone: [facility] 11-17-2023 08:07-0400 Systolic blood pressure 145 mm[Hg] Tylor Kruger MD Work Phone: [facility] 11-17-2023 08:05-0400 Body height 180.3 cm Tylor Kruger MD Work Phone: [facility] 11-17-2023 08:05-0400 Body mass index (BMI) [Ratio] 17.43 kg/m2 Tylor Kruger MD Work Phone: [facility] 11-17-2023 08:05-0400 Body weight 56.7 kg Tylor Kruger MD Work Phone: [facility] 11-16-2023 13:44-0400 Body temperature 97.7 [degF] Ernestina Moody [facility] 11-16-2023 13:44-0400 Diastolic blood pressure 64 mm[Hg] Ernestina Moody [facility] 11-16-2023 13:44-0400 Heart rate 65 /min Ernestina Moody [facility] 11-16-2023 13:44-0400 Respiratory rate 16 /min Ernestina Moody [facility] 11-16-2023 13:44-0400 SaO2% (BldA) [Mass fraction] 96 % Ernestina Moody [facility] 11-16-2023 13:44-0400 Systolic blood pressure 111 mm[Hg] Ernestina Moody [facility] 11-14-2023 10:17-0400 Body temperature 98.29 [degF] Nahid Lindsay [facility] 11-14-2023 10:17-0400 Diastolic blood pressure 78 mm[Hg] Nahid Lindsay [facility] 11-14-2023 10:17-0400 Heart rate 98 /min Nahid Lindsay PT [facility] 11-14-2023 10:17-0400 Respiratory rate 16 /min Nhaid Lindsay PT [facility] 11-14-2023 10:17-0400 SaO2% (BldA) [Mass fraction] 99 % Nahid Lindsay PT [facility] 11-14-2023 10:17-0400 Systolic blood pressure 148 mm[Hg] Nahid Lindsay PT [facility] 11-14-2023 09:47-0400 Body temperature 100 [degF] Adilene Albright [facility] 11-14-2023 09:47-0400 Diastolic blood pressure 82 mm[Hg] Adilene Albright [facility] 11-14-2023 09:47-0400 Heart rate 65 /min Adilene Albright [facility] 11-14-2023 09:47-0400 Respiratory rate 16 /min Adileneher Albright [facility] 11-14-2023 09:47-0400 SaO2% (BldA) [Mass fraction] 97 % Adileneher Albright [facility] 11-14-2023 09:47-0400 Systolic blood pressure 148 mm[Hg] Adilene Albright [facility] 11-13-2023 16:18-0400 Body temperature 97.59 [degF] [facility] 11-13-2023 16:18-0400 Diastolic blood pressure 85 mm[Hg] [facility] 11-13-2023 16:18-0400 Heart rate 67 /min [facility] 11-13-2023 16:18-0400 Respiratory rate 16 /min [facility] 11-13-2023 16:18-0400 SaO2% (BldA) [Mass fraction] 99 % [facility] 11-13-2023 16:18-0400 Systolic blood pressure 150 mm[Hg] [facility] 11-08-2023 11:20-0400 Body temperature 99.3 [degF] Sol Bui [facility] 11-08-2023 11:20-0400 Diastolic blood pressure 91 mm[Hg] Sol Bui OT [facility] 11-08-2023 11:20-0400 Heart rate 70 /min Sol Bui [facility] 11-08-2023 11:20-0400 Respiratory rate 14 /min Sol Bui [facility] 11-08-2023 11:20-0400 SaO2% (BldA) [Mass fraction] 99 % Sol Bui [facility] 11-08-2023 11:20-0400 Systolic blood pressure 177 mm[Hg] Sol Bui [facility] 11-08-2023 00:00-0400 Body temperature 98.1 [degF] Antonietta Akbarr [facility] 11-08-2023 00:00-0400 Diastolic blood pressure 90 mm[Hg] Antoniettagarrison Akbarr [facility] 11-08-2023 00:00-0400 Heart rate 72 /min Antonietta Akbarr [facility] 11-08-2023 00:00-0400 Respiratory rate 16 /min Antoniettagarrison Akbarr [facility] 11-08-2023 00:00-0400 SaO2% (BldA) [Mass fraction] 97 % Antonietta Akbarr [facility] 11-08-2023 00:00-0400 Systolic blood pressure 148 mm[Hg] Antonietta Aleshia [facility] 11-06-2023 10:03-0400 Body temperature 97.9 [degF] Makenzie Garza RN [facility] 11-06-2023 10:03-0400 Diastolic blood pressure 88 mm[Hg] Makenzie Garza RN [facility] 11-06-2023 10:03-0400 Heart rate 74 /min Makenzie Garza RN [facility] 11-06-2023 10:03-0400 Respiratory rate 16 /min Makenzie Garza RN [facility] 11-06-2023 10:03-0400 SaO2% (BldA) [Mass fraction] 94 % Makenzie Garza RN [facility] 11-06-2023 10:03-0400 Systolic blood pressure 167 mm[Hg] Makenzie Garza RN [facility] 11-01-2023 13:10-0400 Diastolic blood pressure 76 mm[Hg] Cate Contreras WELDING PANTOGRAPH MACHINE OPERATOR Work Phone: [facility] 11-01-2023 13:10-0400 Heart rate 52 /min Cate Contreras WELDING PANTOGRAPH MACHINE OPERATOR Work Phone: [facility] 11-01-2023 13:10-0400 Systolic blood pressure 148 mm[Hg] Cate Contreras WELDING PANTOGRAPH MACHINE OPERATOR Work Phone: [facility] 11-01-2023 12:53-0400 Body height 180.3 cm Cate Contreras WELDING PANTOGRAPH MACHINE OPERATOR Work Phone: [facility] 11-01-2023 12:53-0400 Body mass index (BMI) [Ratio] 18.13 kg/m2 Cate Contreras WELDING PANTOGRAPH MACHINE OPERATOR Work Phone: [facility] 11-01-2023 12:53-0400 Body weight 58.97 kg Cate Contreras WELDING PANTOGRAPH MACHINE OPERATOR Work Phone: [facility] 09-26-2023 09:01-0400 Body height 180.3 cm Felicitydominic Olson WELDING PANTOGRAPH MACHINE OPERATOR Work Phone: [facility] 09-26-2023 09:01-0400 Body mass index (BMI) [Ratio] 17.25 kg/m2 Felicity Garciawilliams KNIGHT Work Phone: [facility] 09-26-2023 09:01-0400 Body temperature 98.2 [degF] Felicity Olson WELDING PANTOGRAPH MACHINE OPERATOR Work Phone: [facility] 09-26-2023 09:01-0400 Body weight 56.11 kg Felicity Olson WELDING PANTOGRAPH MACHINE OPERATOR Work Phone: [facility] 09-26-2023 09:01-0400 Diastolic blood pressure 70 mm[Hg] Felicity Olson WELDING PANTOGRAPH MACHINE OPERATOR Work Phone: [facility] 09-26-2023 09:01-0400 Heart rate 75 /min Felicity Olson WELDING PANTOGRAPH MACHINE OPERATOR Work Phone: [facility] 09-26-2023 09:01-0400 Respiratory rate 18 /min Felicity Olson WELDING PANTOGRAPH MACHINE OPERATOR Work Phone: [facility] 09-26-2023 09:01-0400 SaO2% (BldA) [Mass fraction] 93 % Felicity Olson WELDING PANTOGRAPH MACHINE OPERATOR Work Phone: [facility] 09-26-2023 09:01-0400 Systolic blood pressure 114 mm[Hg] Felicity Olson WELDING PANTOGRAPH MACHINE OPERATOR Work Phone: [facility] 08-24-2023 12:56-0400 Body temperature 98.91 [degF] Theresa Boykin PA-C Work Phone: [facility] 08-24-2023 12:56-0400 Diastolic blood pressure 64 mm[Hg] Theresa Boykin PA-C Work Phone: [facility] 08-24-2023 12:56-0400 Systolic blood pressure 122 mm[Hg] Theresa Boykin PA-C Work Phone: [facility] 07-18-2023 08:55-0500 Body temperature 98.49 [degF] Yfn Puckett Jr., DPM Work Phone: [facility] 07-18-2023 08:55-0500 Diastolic blood pressure 70 mm[Hg] Yfn Puckett Jr., DPM Work Phone: [facility] 07-18-2023 08:55-0500 Heart rate 89 /min Yfn Puckett Jr., DPM Work Phone: [facility] 07-18-2023 08:55-0500 Systolic blood pressure 109 mm[Hg] Yfn Puckett Jr., DPM Work Phone: [facility] 07-04-2023 08:25-0500 Body temperature 98.2 [degF] Yfn Puckett Jr., DPM Work Phone: [facility] 07-04-2023 08:25-0500 Diastolic blood pressure 66 mm[Hg] Yfn Lavern Jr., DPM Work Phone: [facility] 07-04-2023 08:25-0500 Heart rate 92 /min Yfn Puckett Jr., DPM Work Phone: [facility] 07-04-2023 08:25-0500 Systolic blood pressure 100 mm[Hg] Yfn Puckett Jr., DPM Work Phone: [facility] 04-24-2023 11:26-0500 Body height 180.3 cm Ying Brittaney DO Work Phone: [facility] 04-24-2023 11:26-0500 Body mass index (BMI) [Ratio] 19.54 kg/m2 Ying Brittaney DO Work Phone: [facility] 04-24-2023 11:26-0500 Body temperature 97.9 [degF] Ying Quispe DO Work Phone: [facility] 04-24-2023 11:26-0500 Body weight 63.55 kg Ying Brittaney DO Work Phone: [facility] 04-24-2023 11:26-0500 Diastolic blood pressure 68 mm[Hg] Ying Quispe DO Work Phone: [facility] 04-24-2023 11:26-0500 Heart rate 80 /min Ying Quispe DO Work Phone: [facility] 04-24-2023 11:26-0500 Respiratory rate 16 /min Ying Brittaney DO Work Phone: [facility] 04-24-2023 11:26-0500 Systolic blood pressure 110 mm[Hg] Ying Brittaney DO Work Phone: [facility] 01-25-2023 15:39-0400 Body height 180.3 cm Ying Quispe DO Work Phone: [facility] 01-25-2023 15:39-0400 Body mass index (BMI) [Ratio] 20.13 kg/m2 Ying Brittaney DO Work Phone: [facility] 01-25-2023 15:39-0400 Body temperature 97.59 [degF] Ying Quispe DO Work Phone: [facility] 01-25-2023 15:39-0400 Body weight 65.45 kg Ying Quispe DO Work Phone: [facility] 08-30-2023 15:39-0400 Diastolic blood pressure 72 mm[Hg] Ying Quispe DO Work Phone: [facility] 01-25-2023 15:39-0400 Heart rate 72 /min Ying Quispe DO Work Phone: [facility] 01-25-2023 15:39-0400 Respiratory rate 18 /min Ying Quispe DO Work Phone: [facility] 01-25-2023 15:39-0400 SaO2% (BldA) [Mass fraction] 99 % Ying Quispe DO Work Phone: [facility] 01-25-2023 15:39-0400 Systolic blood pressure 132 mm[Hg] Ying Quispe DO Work Phone: [facility] 12-12-2022 09:32-0400 Body height 180.3 cm Lita Gu MD Work Phone: [facility] 12-12-2022 09:32-0400 Body mass index (BMI) [Ratio] 20.64 kg/m2 Lita Gu MD Work Phone: [facility] 12-12-2022 09:32-0400 Body temperature 98.1 [degF] Lita Gu MD Work Phone: [facility] 12-12-2022 09:32-0400 Body weight 67.13 kg Lita Gu MD Work Phone: [facility] 12-12-2022 09:32-0400 Diastolic blood pressure 84 mm[Hg] Lita Gu MD Work Phone: [facility] 12-12-2022 09:32-0400 Heart rate 93 /min Lita Gu MD Work Phone: [facility] 12-12-2022 09:32-0400 SaO2% (BldA) [Mass fraction] 97 % Lita Gu MD Work Phone: [facility] 12-12-2022 09:32-0400 Systolic blood pressure 130 mm[Hg] Lita Gu MD Work Phone: [facility] 11-28-2022 16:59-0400 Diastolic blood pressure 80 mm[Hg] Ying Quispe DO Work Phone: [facility] 11-28-2022 16:59-0400 Systolic blood pressure 146 mm[Hg] Ying Brittaney DO Work Phone: [facility] 11-28-2022 16:12-0400 Body height 180.3 cm Ying Quispe DO Work Phone: [facility] 11-28-2022 16:12-0400 Body mass index (BMI) [Ratio] 21.27 kg/m2 Ying Quispe DO Work Phone: [facility] 11-28-2022 16:12-0400 Body temperature 98.29 [degF] Ying Quispe DO Work Phone: [facility] 11-28-2022 16:12-0400 Body weight 69.17 kg Ying Mccurdywell DO Work Phone: [facility] 11-28-2022 16:12-0400 Heart rate 92 /min Ying Mccurdywell DO Work Phone: [facility] 11-28-2022 16:12-0400 Respiratory rate 20 /min Ying Mccurdywell DO Work Phone: [facility] 11-28-2022 16:12-0400 SaO2% (BldA) [Mass fraction] 99 % Ying Quispe DO Work Phone: [facility] 10-25-2022 10:32-0400 Body height 180.3 cm Lita Gu MD Work Phone: [facility] 10-25-2022 10:32-0400 Body mass index (BMI) [Ratio] 21.38 kg/m2 Lita Gu MD Work Phone: [facility] 10-25-2022 10:32-0400 Body temperature 98.71 [degF] Lita Gu MD Work Phone: [facility] 10-25-2022 10:32-0400 Body weight 69.54 kg Lita Gu MD Work Phone: [facility] 10-25-2022 10:32-0400 Diastolic blood pressure 78 mm[Hg] Lita Gu MD Work Phone: [facility] 10-25-2022 10:32-0400 Heart rate 86 /min Lita Gu MD Work Phone: [facility] 10-25-2022 10:32-0400 SaO2% (BldA) [Mass fraction] 94 % Lita Gu MD Work Phone: [facility] 10-25-2022 10:32-0400 Systolic blood pressure 137 mm[Hg] Lita Gu MD Work Phone: [facility] 09-27-2022 09:03-0400 Body height 180.3 cm Lita Gu MD Work Phone: [facility] 09-27-2022 09:03-0400 Body mass index (BMI) [Ratio] 22.82 kg/m2 Lita Gu MD Work Phone: [facility] 09-27-2022 09:03-0400 Body temperature 98.4 [degF] Lita Gu MD Work Phone: [facility] 09-27-2022 09:03-0400 Body weight 74.21 kg Lita Gu MD Work Phone: [facility] 09-27-2022 09:03-0400 Diastolic blood pressure 84 mm[Hg] Lita Gu MD Work Phone: [facility] 09-27-2022 09:03-0400 Heart rate 95 /min Lita Gu MD Work Phone: [facility] 09-27-2022 09:03-0400 SaO2% (BldA) [Mass fraction] 95 % Lita Gu MD Work Phone: [facility] 09-27-2022 09:03-0400 Systolic blood pressure 144 mm[Hg] Lita Gu MD Work Phone: [facility] 08-15-2022 16:36-0400 Body height 180.3 cm Ying Quispe DO Work Phone: [facility] 08-15-2022 16:36-0400 Body mass index (BMI) [Ratio] 23.32 kg/m2 Ying Brittaney DO Work Phone: [facility] 08-15-2022 16:36-0400 Body temperature 99.19 [degF] Ying Brittaney DO Work Phone: [facility] 08-15-2022 16:36-0400 Body weight 75.84 kg Ying Mccurdywell DO Work Phone: [facility] 08-15-2022 16:36-0400 Diastolic blood pressure 80 mm[Hg] Ying Brittaney DO Work Phone: [facility] 08-15-2022 16:36-0400 Heart rate 88 /min Ying Mccurdywell DO Work Phone: [facility] 08-15-2022 16:36-0400 Respiratory rate 14 /min Ying Mccurdywell DO Work Phone: [facility] 08-15-2022 16:36-0400 Systolic blood pressure 138 mm[Hg] Ying Quispe DO Work Phone: [facility] 07-06-2022 08:34-0500 Body height 180.3 cm Lita Gu MD Work Phone: [facility] 07-06-2022 08:34-0500 Body mass index (BMI) [Ratio] 24.02 kg/m2 Lita Gu MD Work Phone: [facility] 07-06-2022 08:34-0500 Body temperature 98.2 [degF] Lita Gu MD Work Phone: [facility] 07-06-2022 08:34-0500 Body weight 78.11 kg Lita Gu MD Work Phone: [facility] 07-06-2022 08:34-0500 Diastolic blood pressure 83 mm[Hg] Lita Gu MD Work Phone: [facility] 07-06-2022 08:34-0500 Heart rate 92 /min Lita Gu MD Work Phone: [facility] 07-06-2022 08:34-0500 SaO2% (BldA) [Mass fraction] 94 % Lita Gu MD Work Phone: [facility] 07-06-2022 08:34-0500 Systolic blood pressure 133 mm[Hg] Lita Gu MD Work Phone: [facility] 06-13-2022 15:17-0500 Body height 180.3 cm Ying Quispe DO Work Phone: [facility] 06-13-2022 15:17-0500 Body mass index (BMI) [Ratio] 24.73 kg/m2 Ying Quispe DO Work Phone: [facility] 06-13-2022 15:17-0500 Body temperature 98.71 [degF] Ying Quispe DO Work Phone: [facility] 06-13-2022 15:17-0500 Body weight 80.42 kg Ying Quispe DO Work Phone: [facility] 06-13-2022 15:17-0500 Diastolic blood pressure 70 mm[Hg] Ying Quispe DO Work Phone: [facility] 06-13-2022 15:17-0500 Heart rate 72 /min Ying Quispe DO Work Phone: [facility] 06-13-2022 15:17-0500 Respiratory rate 18 /min Ying Quispe DO Work Phone: [facility] 06-13-2022 15:17-0500 Systolic blood pressure 132 mm[Hg] Ying Quispe DO Work Phone: [facility] 06-11-2022 09:40-0500 Body temperature 98.91 [degF] Shira Lopez MD Work Phone: [facility] 06-11-2022 09:40-0500 Diastolic blood pressure 74 mm[Hg] Shira Lopez MD Work Phone: [facility] 06-11-2022 09:40-0500 Heart rate 83 /min Shira Lopez MD Work Phone: [facility] 06-11-2022 09:40-0500 Respiratory rate 14 /min Shira Lopez MD Work Phone: [facility] 06-11-2022 09:40-0500 SaO2% (BldA) [Mass fraction] 96 % Shira Lopez MD Work Phone: [facility] 06-11-2022 09:40-0500 Systolic blood pressure 125 mm[Hg] Shira Lopez MD Work Phone: [facility] 06-10-2022 08:51-0500 Body height 180.3 cm Shira Lopez MD Work Phone: [facility] 06-10-2022 08:51-0500 Body mass index (BMI) [Ratio] 23.71 kg/m2 Shira Lopez MD Work Phone: [facility] 06-10-2022 08:51-0500 Body weight 77.11 kg Shira Lopez MD Work Phone: [facility] 06-06-2022 11:21-0500 Body height 179.7 cm Ying Quispe DO Work Phone: [facility] 06-06-2022 11:21-0500 Body mass index (BMI) [Ratio] 25.17 kg/m2 Ying Quispe DO Work Phone: [facility] 06-06-2022 11:21-0500 Body temperature 98.1 [degF] Ying Quispe DO Work Phone: [facility] 06-06-2022 11:21-0500 Body weight 81.28 kg Ying Brittaney DO Work Phone: [facility] 06-06-2022 11:21-0500 Diastolic blood pressure 80 mm[Hg] Ying Brittaney DO Work Phone: [facility] 06-06-2022 11:21-0500 Heart rate 80 /min Ying Quispe DO Work Phone: [facility] 06-06-2022 11:21-0500 Respiratory rate 16 /min Ying Brittaney DO Work Phone: [facility] 06-06-2022 11:21-0500 Systolic blood pressure 130 mm[Hg] Ying Quispe DO Work Phone: [facility] 04-06-2022 11:17-0500 Body mass index (BMI) [Ratio] 25.06 kg/m2 Ying Quispe DO Work Phone: [facility] 04-06-2022 11:17-0500 Body temperature 98.49 [degF] Ying Brittaney DO Work Phone: [facility] 04-06-2022 11:17-0500 Body weight 80.92 kg Ying Mccurdywell DO Work Phone: [facility] 04-06-2022 11:17-0500 Diastolic blood pressure 76 mm[Hg] Ying Quispe DO Work Phone: [facility] 04-06-2022 11:17-0500 Heart rate 81 /min Ying Brittaney DO Work Phone: [facility] 04-06-2022 11:17-0500 Respiratory rate 16 /min Ying Brittaney DO Work Phone: [facility] 04-06-2022 11:17-0500 SaO2% (BldA) [Mass fraction] 96 % Ying Quispe DO Work Phone: [facility] 04-06-2022 11:17-0500 Systolic blood pressure 121 mm[Hg] Ying Quispe DO Work Phone: [facility] 01-05-2022 16:17-0400 Body height 179.7 cm Felicity Olson WELDING [employer] MACHINE OPERATOR Work Phone: [facility] 01-05-2022 16:17-0400 Body mass index (BMI) [Ratio] 25.73 kg/m2 Felicitydominic Olson WELDING PANTOGRAPH MACHINE OPERATOR Work Phone: [facility] 01-05-2022 16:17-0400 Body temperature 98.2 [degF] Felicity Wesley WELDING PANTOGRAPH MACHINE OPERATOR Work Phone: [facility] 01-05-2022 16:17-0400 Body weight 83.1 kg Felicity Wesley WELDING PANTOGRAPH MACHINE OPERATOR Work Phone: [facility] 01-05-2022 16:17-0400 Diastolic blood pressure 70 mm[Hg] Felicity Wesley WELDING PANTOGRAPH MACHINE OPERATOR Work Phone: [facility] 01-05-2022 16:17-0400 Heart rate 80 /min Felicity Olson WELDING PANTOGRAPH MACHINE OPERATOR Work Phone: [facility] 01-05-2022 16:17-0400 Respiratory rate 16 /min Felicity Olson WELDING PANTOGRAPH MACHINE OPERATOR Work Phone: [facility] 01-05-2022 16:17-0400 Systolic blood pressure 126 mm[Hg] Felicity Olson WELDING PANTOGRAPH MACHINE OPERATOR Work Phone: [facility] 11-25-2021 16:10-0400 Body temperature 98.4 [degF] Yfn Puckett Jr., DPM Work Phone: [facility] 11-25-2021 16:10-0400 Diastolic blood pressure 82 mm[Hg] Yfn Puckett Jr., DPM Work Phone: [facility] 11-25-2021 16:10-0400 Heart rate 78 /min Yfn Puckett Jr., DPM Work Phone: [facility] 11-25-2021 16:10-0400 Systolic blood pressure 136 mm[Hg] Yfn Puckett Jr., DPM Work Phone: [facility] 11-18-2021 08:01-0400 Body height 179.7 cm Ying Mccurdywell DO Work Phone: [facility] 11-18-2021 08:01-0400 Body mass index (BMI) [Ratio] 26.69 kg/m2 Ying Brittaney DO Work Phone: [facility] 11-18-2021 08:01-0400 Body temperature 98.29 [degF] Ying Quispe DO Work Phone: [facility] 11-18-2021 08:01-0400 Body weight 86.18 kg Ying Brittaney DO Work Phone: [facility] 11-18-2021 08:01-0400 Diastolic blood pressure 70 mm[Hg] Ying Quispe DO Work Phone: [facility] 11-18-2021 08:01-0400 Heart rate 66 /min Ying Quispe DO Work Phone: [facility] 11-18-2021 08:01-0400 Respiratory rate 16 /min Ying Mccurdywell DO Work Phone: [facility] 11-18-2021 08:01-0400 Systolic blood pressure 138 mm[Hg] Ying Quispe DO Work Phone: [facility] 06-21-2021 14:44-0500 Body height 179.7 cm Ying Brittaney DO Work Phone: [facility] 06-21-2021 14:44-0500 Body mass index (BMI) [Ratio] 26.21 kg/m2 Ying [place] Mirada DO Work Phone: [facility] 06-21-2021 14:44-0500 Body temperature 98.6 [degF] Ying Quispe DO Work Phone: [facility] 06-21-2021 14:44-0500 Body weight 84.64 kg Ying Brittaney DO Work Phone: [facility] 06-21-2021 14:44-0500 Diastolic blood pressure 80 mm[Hg] Ying Quispe DO Work Phone: [facility] 06-21-2021 14:44-0500 Heart rate 86 /min Ying Quispe DO Work Phone: [facility] 06-21-2021 14:44-0500 Respiratory rate 16 /min Ying Quispe DO Work Phone: [facility] 06-21-2021 14:44-0500 Systolic blood pressure 126 mm[Hg] Ying Quispe DO Work Phone: [facility] 06-17-2021 16:11-0500 Body temperature 97.3 [degF] Yfn Puckett Jr., DPM Work Phone: [facility] 06-17-2021 16:11-0500 Diastolic blood pressure 84 mm[Hg] Yfn Puckett Jr., DPM Work Phone: [facility] 06-17-2021 16:11-0500 Heart rate 94 /min Yfn Puckett Jr., DPM Work Phone: [facility] 06-17-2021 16:11-0500 Systolic blood pressure 135 mm[Hg] Yfn Lavern Drake., DPM Work Phone: [facility] 05-12-2021 09:36-0500 Body height 179.7 cm Ying Brittaney DO Work Phone: [facility] 05-12-2021 09:36-0500 Body mass index (BMI) [Ratio] 25.45 kg/m2 Ying Quispe DO Work Phone: [facility] 05-12-2021 09:36-0500 Body temperature 98.6 [degF] Ying Quispe DO Work Phone: [facility] 05-12-2021 09:36-0500 Body weight 82.19 kg Ying Quispe DO Work Phone: [facility] 05-12-2021 09:36-0500 Diastolic blood pressure 53 mm[Hg] Ying Quispe DO Work Phone: [facility] 05-12-2021 09:36-0500 Heart rate 78 /min Ying Quispe DO Work Phone: [facility] 05-12-2021 09:36-0500 Respiratory rate 16 /min Ying Quispe DO Work Phone: [facility] 05-12-2021 09:36-0500 Systolic blood pressure 93 mm[Hg] Ying Quispe DO Work Phone: [facility] 09-29-2020 13:32-0400 Diastolic blood pressure 85 mm[Hg] Bambi Huynh MD Work Phone: [facility] 09-29-2020 13:32-0400 Heart rate 74 /min Bambi Huynh MD Work Phone: [facility] 09-29-2020 13:32-0400 SaO2% (BldA) [Mass fraction] 93 % Bambi Huynh MD Work Phone: [facility] 09-29-2020 13:32-0400 Systolic blood pressure 138 mm[Hg] Bambi Huynh MD Work Phone: [facility] 09-29-2020 13:21-0400 Body height 182.9 cm Bambi Huynh MD Work Phone: [facility] 09-29-2020 13:21-0400 Body mass index (BMI) [Ratio] 26.65 kg/m2 Bambi Huynh MD Work Phone: [facility] 09-29-2020 13:21-0400 Body temperature 97.3 [degF] Bambi Huynh MD Work Phone: [facility] 09-29-2020 13:21-0400 Body weight 89.13 kg Bambi Huynh MD Work Phone: [facility] 12-06-2019 11:08-0400 BMI (Body Mass Index) 26.04 kg/m2 [facility] 12-06-2019 11:08-0400 Body Temperature 98.8 [degF] Rebeca Kaur [facility] 12-06-2019 11:08-0400 Body weight 87.09 kg [facility] 12-06-2019 11:08-0400 Height 182.9 cm [facility] 12-06-2019 11:08-0400 Pulse (Heart Rate) 80 /min [facility] 12-06-2019 11:08-0400 Pulse Oximetry 96 % [facility] 12-06-2019 11:08-0400 Respiratory Rate 18 /min [facility] 03-25-2019 14:16-0400 BMI (Body Mass Index) 27.17 kg/m2 [facility] 03-25-2019 14:16-0400 Body Temperature 98.01 [degF] [facility] 03-25-2019 14:16-0400 Body weight 90.86 kg [facility] 03-25-2019 14:16-0400 BP Diastolic 83 mm[Hg] [facility] 03-25-2019 14:16-0400 BP Systolic 135 mm[Hg] [facility] 03-25-2019 14:16-0400 Height 182.9 cm [facility] 03-25-2019 14:16-0400 Pulse (Heart Rate) 82 /min [facility] 03-25-2019 14:16-0400 Pulse Oximetry 98 % [facility] 03-25-2019 14:16-0400 Respiratory Rate 17 /min [facility] 01-14-2019 13:48-0400 BMI (Body Mass Index) 26.28 kg/m2 [facility] 01-14-2019 13:48-0400 Body Temperature 98.4 [degF] [facility] 01-14-2019 13:48-0400 Body weight 87.91 kg [facility] 01-14-2019 13:48-0400 BP Diastolic 76 mm[Hg] [facility] 01-14-2019 13:48-0400 BP Systolic 130 mm[Hg] [facility] 01-14-2019 13:48-0400 Pulse (Heart Rate) 75 /min [facility] 01-14-2019 13:48-0400 Pulse Oximetry 96 % [facility] 10-12-2018 15:25-0400 BMI (Body Mass Index) 26.62 kg/m2 Татьяна Jenkins [facility] 10-12-2018 15:25-0400 Body Temperature 97.81 [degF] Татьяна Jenkins [facility] 10-12-2018 15:25-0400 BP Diastolic 91 mm[Hg] Татьяна Jenkins [facility] 10-12-2018 15:25-0400 BP Systolic 168 mm[Hg] Татьяна Jenkins [facility] 10-12-2018 15:25-0400 Height 182.9 cm Татьяна Jenkins [facility] 10-12-2018 15:25-0400 Pulse (Heart Rate) 78 /min Татьяна Jenkins [facility] 10-12-2018 15:25-0400 Pulse Oximetry 98 % Татьяна Jenkins [facility] 10-12-2018 15:25-0400 Weight 89.04 kg Татьяна Jenkins [facility] 09-15-2018 11:11-0400 Body Temperature 97.59 [degF] [facility] 09-15-2018 11:11-0400 BP Diastolic 79 mm[Hg] [facility] 09-15-2018 11:11-0400 BP Systolic 133 mm[Hg] [facility] 09-15-2018 11:11-0400 Pulse (Heart Rate) 61 /min [facility] 09-15-2018 11:11-0400 Pulse Oximetry 96 % [facility] Peorias[facility] 09-15-2018 11:11-0400 Respiratory Rate 16 /min [facility] 09-15-2018 01:32-0400 BMI (Body Mass Index) 26.76 kg/m2 [facility] 09-15-2018 01:32-0400 Height 182.9 cm [facility] 09-15-2018 01:32-0400 Weight 89.5 kg [facility] 09-14-2018 20:37-0400 Body Temperature 98.8 [degF] Princeniharika [facility] 09-14-2018 20:37-0400 BP Diastolic 83 mm[Hg] Dewayne [facility] 09-14-2018 20:37-0400 BP Systolic 151 mm[Hg] Dewayne [facility] 09-14-2018 20:37-0400 Pulse (Heart Rate) 82 /min [facility] 09-14-2018 20:37-0400 Pulse Oximetry 96 % Dewayne Barlow [facility] 09-14-2018 20:37-0400 Respiratory Rate 20 /min Dewayne Barlow [facility] 09-14-2018 17:33-0400 BMI (Body Mass Index) 26.45 kg/m2 Dewayne Barlow [facility] 09-14-2018 17:33-0400 Height 182.9 cm Dewayne Barlow [facility] 09-14-2018 17:33-0400 Weight [facility].[address] [facility] [address] 09-14-2018 12:51-0400 BMI (Body Mass Index) 27 kg/m2 [facility] 09-14-2018 12:51-0400 Body Temperature 98.91 [degF] [facility] 09-14-2018 12:51-0400 BP Diastolic 86 mm[Hg] [facility] 09-14-2018 12:51-0400 BP Systolic 132 mm[Hg] [facility] 09-14-2018 12:51-0400 Height 182.9 cm [facility] 09-14-2018 12:51-0400 Pulse (Heart Rate) 94 /min [facility] 09-14-2018 12:51-0400 Pulse Oximetry 94 % [facility] 09-14-2018 12:51-0400 Weight 90.31 kg [facility] 2018 07:36-0500 BMI (Body Mass Index) 27.08 kg/m2 [facility] 2018 07:36-0500 Body Temperature 98.1 [degF] [facility] 2018 07:36-0500 BP Diastolic 79 mm[Hg] [facility] 2018 07:36-0500 BP Systolic 129 mm[Hg] [facility] 2018 07:36-0500 Height 182.9 cm [facility] 2018 07:36-0500 Pulse (Heart Rate) 79 /min [facility] 2018 07:36-0500 Pulse Oximetry 98 % [facility] 2018 07:36-0500 Weight 90.58 kg [facility] 09-05-2017 14:41-0400 BMI (Body Mass Index) 26.45 kg/m2 [facility] 09-05-[facility] 14:41-0400 Height 182.9 cm Nicholas Rivera [facility] 09-05-2017 14:41-0400 Weight 88.45 kg Nicholas Rivera [facility] 07-03-2017 07:48-0500 BMI (Body Mass Index) 26.89 kg/m2 Bambi Huynh [facility] Work Phone: 07-03-2017 07:48-0500 Body Temperature 98.1 [degF] Bambi Huynh [facility] Work Phone: 07-03-2017 07:48-0500 BP Diastolic 83 mm[Hg] Bambi Huynh [facility] Work Phone: 07-03-2017 07:48-0500 BP Systolic 149 mm[Hg] [facility] Work Phone: 07-03-2017 07:48-0500 Height 182.9 cm [facility] Work Phone: 07-03-2017 07:48-0500 Pulse (Heart Rate) 88 /min Bambi Huynh [facility] Work Phone: 07-03-2017 07:48-0500 Pulse Oximetry 98 % [facility] Work Phone: 07-03-2017 07:48-0500 Respiratory Rate 14 /min [facility] Work Phone: 07-03-2017 07:48-0500 Weight 89.95 kg [facility] Work Phone: Encounters Encounter Date Encounter Type Care Provider Facility Start: 11-20-2024 End: 11-20-[address] Ethan Rodriguez MD Work Phone: -Cardiovascular Services Start: 11-20-2024 End: 11-20-2024 Dr. Ying Contreras DPM -Cardiovascular Services Work Phone: Start: 11-20-2024 End: 11-20-2024 ambulatory Millie Gudla Facility:[facility] Start: 11-18-2024 ambulatory Millie Gudla Facility:[facility] Start: 11-18-2024 Dr. Millie Massey MD [facility] Start: 11-12-2024 ambulatory Millie Gudla Facility:[facility] Start: 11-12-2024 Dr. Millie Massey MD [facility] Start: 11-05-2024 ambulatory Millie Gudla Facility:[facility] Start: 11-05-2024 Dr. Millie Massey MD [facility] Start: 11-04-2024 ambulatory Millie Gudla Facility:[facility] Start: 11-04-2024 Dr. Millie Massey MD [facility] Start: 10-30-2024 ambulatory Millie Gudla Facility:[facility] Start: 10-30-2024 Dr. Millie Massey MD [facility] Start: 09-23-2024 End: 09-23-2024 Dr. Millie Massey MD [facility] Start: 09-23-2024 End: 09-23-2024 ambulatory Millie Gudla Facility:[facility] Start: 09-18-2024 End: 09-18-[address] Ethan Rodriguez MD Work Phone: [facility] Work Phone: Start: 09-18-2024 End: 09-18-2024 Dr. Millie Massey MD [facility] Start: 09-18-2024 End: 09-18-2024 ambulatory Millie Gudla Facility:[facility] Start: 09-16-2024 End: 09-16-[address] Ethan Rodriguez MD Work Phone: [facility] Work Phone: Start: 09-16-2024 End: 09-16-2024 Dr. Millie Massey MD [facility] Start: 09-16-2024 End: 09-16-[facility] Start: 09-15-2024 End: 09-15-2024 Dr. Ethan Rodriguez MD Work Phone: -Emergency Department Work Phone: Start: 09-15-2024 End: 09-15-2024 Emergency department patient visit Dr. Ethan Rodriguez MD Work Phone: [facility] Work Phone: Start: 09-09-2024 End: 09-09-2024 Dr. Millie Massey MD -[facility] Start: 09-09-2024 End: 09-09-2024 ambulatory [facility] Facility:[facility] Start: 09-02-2024 End: 09-02-2024 Dr. Millie Massey MD -[facility] Start: 09-02-2024 End: 09-02-2024 ambulatory [facility] Facility:[facility] Start: 08-31-2024 End: 08-31-2024 Millie Massey MD -Progressive Care Unit, Outpt Work Phone: Start: 08-31-2024 End: 08-31-[address] Ethan Rodriguez MD Work Phone: [facility] Work Phone: Start: 08-29-2024 [facility] Start: 08-29-2024 Dr. Millie Massey MD [facility] Start: 08-28-2024 End: 08-28-[address] Ethan Rodriguez MD Work Phone: [facility] Work Phone: Start: 08-28-2024 End: 08-28-2024 Dr. Millie Massey MD -[facility] Start: 08-28-2024 End: 08-28-2024 ambulatory [facility] Facility:[facility] Start: 08-26-2024 End: 08-26-[address] Ethan Rodriguez MD Work Phone: [facility] Work Phone: Start: 08-26-2024 End: 08-26-2024 Dr. Millie Massey MD -[facility] Start: 08-26-2024 End: 08-26-2024 ambulatory Millie Gudia OLS Facility:[facility] Start: 08-23-2024 End: 08-23-2024 Documentation procedure Sol Huerta RN [facility] Start: 08-22-2024 End: 08-22-[address] Ethan Rodriguez MD Work Phone: [facility] Work Phone: Start: 08-22-2024 End: 08-22-2024 Dr. Millie Massey MD -[facility] Start: 08-22-2024 End: 08-22-2024 ambulatory Millie RENE Facility:[facility] Start: 08-19-2024 ambulatory Millie Alydia OLS Facili ty:[facility] Start: 08-19-2024 Dr. Millie Massey MD [facility] Start: 08-17-2024 Dr. Nikolas Magaña MD [facility] Work Phone: Start: 08-16-2024 Dr. Nikolas Magaña MD [facility] Work Phone: Start: 08-15-2024 Dr. Tevin Nicholas MD -[facility] Start: 08-15-2024 End: 08-15-2024 ambulatory Casi Topete RN [facility] Start: 08-15-2024 vSetlana [facility] Start: 08-14-2024 ambulatory Angie Torres Facil ity:[facility] Start: 08-14-2024 End: 08-17-2024 Evaluation and management of inpatient Dr. Ethan Rodriguez MD Work Phone: [facility] Work Phone: Start: 08-14-2024 End: 08-17-2024 Dr. Nikolas Magaña MD -[facility] Work Phone: Start: 08-14-2024 End: 08-14-2024 ambulatory Millie Alydla OLS Facility:[facility] Start: 08-13-2024 Dr. Nikolas Magaña MD -[facility] Work Phone: Start: 08-12-2024 Dr. Nikolas Magaña MD -[facility] Work Phone: Start: 08-11-2024 Dr. Judd Galvin DO [facility] Work Phone: Start: 08-10-2024 Dr. Judd Galvin DO [facility] Work Phone: Start: 08-09-2024 Dr. Judd Galvin DO [facility] Work Phone: Start: 08-08-2024 Nick Friend DO -[facility] Start: 08-08-2024 Dr. Judd Galvin [facility] Work Phone: Start: 08-07-2024 Dr. Judd Galvin DO [facility] Work Phone: Start: 08-06-2024 Nick Friend DO -[facility] Start: 08-06-2024 Dr. Judd Galvin DO [facility] Work Phone: Start: 08-05-2024 Dr. Ivone mccarty MD -[facility] Work Phone: Start: 08-04-2024 Dr. vIone mccarty MD -[facility] Work Phone: Start: 08-03-2024 Dr. Mar chang MD -[facility] Work Phone: Start: 08-03-2024 Nick Friend DO -[facility] Start: 08-02-2024 Nick Friend DO -[facility] Start: 08-02-2024 Dr. Mar chang MD -[facility] Work Phone: Start: 08-01-2024 Nick Gallegos DO -[facility] Start: 08-01-2024 Dr. Kvng Watkins DO -[facility] Work Phone: Start: 07-31-2024 ambulatory Jayaprakas Melissa Facil ity:[facility] Start: 07-31-2024 End: 08-13-2024 Evaluation and management of inpatient Jayaprakas Melissa Facility:[facility] Start: 07-31-2024 End: 08-13-2024 Dr. Nikolas Magaña MD -[facility] Work Phone: Start: 07-30-2024 ambulatory Millie Alston ty:[facility] Start: 07-30-2024 Dr. Millie Massey MD -[facility] Start: 07-29-2024 Dr. Mar chang MD -[facility] Work Phone: Start: 07-28-2024 Dr. [...] DO -[facility] Start: 07-23-2024 ambulatory Judd Galvin Facility:[facility] Start: 07-23-2024 End: 07-29-2024 Evaluation and management of inpatient Jayaprakas Melissa Facility:[facility] Start: 07-23-2024 End: 07-29-2024 Dr. Mar Mead MD -Medical Surgical 3 Work Phone: Start: 07-18-2024 End: 07-18-2024 Emergency department patient visit Sheldon Catarino Facility:[facility] Start: 07-18-2024 End: 07-18-2024 Dr. Sheldon Toribio MD -Emergency Departmen t Work Phone: Start: 07-18-2024 End: 07-18-2024 ambulatory Adilene Rainey Facility:[facility] Start: 07-03-2024 End: 07-03-2024 ambulatory Codie Garcia RN [facility] Comment on above: High Risk Outreach f or High Risk Start: 07-02-2024 End: 07-02-2024 ambulatory Codie Garcia RN [facility] Start: 06-25-2024 End: 06-25-2024 Dr. Millie Massey MD -[facility] Start: 06-24-2024 End: 06-25-2024 ambulatory Millie RENE Facility:[facility] Start: 06-24-2024 Dr. Millie Massey MD -[facility] Start: 06-21-2024 End: 06-21-2024 Dr. Millie Massey MD -[facility] Start: 06-21-2024 End: 06-21-2024 ambulatory Millie RENE Facility:[facility] Start: 06-18-2024 [facility] Start: 06-07-2024 End: 06-07-2024 Dr. Millie Massey MD [facility] Start: 06-07-2024 End: 06-07-2024 ambulatory Millie RENE Facility:[facility] Start: 06-06-2024 End: 06-06-2024 Dr. Millie Massey MD -[facility] Start: 06-05-2024 End: 06-05-2024 Chioma BRIGGS -[facility] Work Phone: Start: 06-05-2024 End: 06-06-2024 ambulatory Millie ERNE Facility:[facility] Start: 06-03-2024 End: 06-03-2024 Dr. Millie Massey MD -[facility] Start: 06-03-2024 End: 06-03-2024 ambulatory Millie RENE Facility:[facility] Start: 05-27-2024 End: 05-27-2024 Dr. Millie Massey MD -[facility] Start: 05-27-2024 End: 05-27-2024 ambulatory Millie RENE Facility:[facility] Start: 05-23-2024 End: 05-23-2024 Orders Only Edenilson Guerra DO Work Phone: [facility] Comment on above: Abdominal aortic ane urysm (AAA) without rupture, unspecified part (HCC) (Primary Dx) Start: 05-03-2024 ambulatory Jeffery Veloz Facility :[facility] Start: 04-30-2024 End: 04-30-2024 Dr. Jeffery Veloz MD -[facility] Work Phone: Start: 04-30-2024 End: 04-30-2024 ambulatory Ethan Rodriguez Facility:[facility] Start: 04-24-2024 ambulatory Ethan Rodriguez Facility:[facility] Start: 04-24-2024 [facility] Start: 04-17-2024 ambulatory Angie Torres Facil ity:[facility] Start: 04-17-2024 End: 04-17-2024 Dr. Angie Torres MD -Laboratory, Specimen Work Phone: Start: 04-17-2024 End: 04-17-2024 ambulatory Ethan Rodriguez Facility:[facility] Start: 04-12-2024 End: 04-12-2024 ambulatory Millie RENE Facility:[facility] Start: 04-11-2024 End: 04-11-2024 Emergency department patient visit Ethan Rodriguez Facility:[facility] Start: 04-05-2024 End: 04-05-2024 Documentation procedure Corrina Dawn MA [facility] Start: 04-05-2024 End: 04-05-2024 Refill Ying Quispe DO Work Phone: [facility] Start: 04-04-2024 End: 04-04-2024 Postop follow up visit related to original px Cate Leonasirisha Contreras CNP Work Phone: [facility] Comment on above: 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) (Primary Dx) Start: 04-04-2024 End: 04-04-2024 ambulatory YING DARLINGE [facility] Start: 03-26-2024 ambulatory [facility] Facility:[facility] Start: 03-21-2024 ambulatory [facility] Facility:[facility] Start: 03-12-2024 End: 03-20-2024 Evaluation and management of inpatient [facility] Start: 03-11-2024 End: 03-12-2024 Emergency department patient visit Ethan Rodriguez Facility:[facility] Start: 02-29-2024 End: 02-29-2024 ambulatory [facility] Facility:[facility] Start: 02-16-2024 End: 02-16-2024 Refill Ying Quispe DO Work Phone: [facility] Comment on above: Hypothyroidism, unsp ecified type Start: 01-19-2024 End: 02-25-2024 Evaluation and management of inpatient [facility] Start: 01-17-2024 End: 01-17-2024 Documentation procedure Rafaela Garcias RN [facility] Start: 01-11-2024 End: 01-11-2024 Documentation procedure Rafaela Garcias RN [facility] Start: 01-11-2024 [facility] Start: 01-09-2024 End: 01-09-2024 Postop follow up visit related to original px Sarath Rey MD Work Phone: [facility] Comment on above: 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) (Primary Dx) Start: 01-09-2024 End: 01-09-2024 ambulatory YING QUISPE [facility] Start: 01-09-2024 End: 01-09-2024 ambulatory SARATH REY [facility] Start: 01-08-2024 End: 01-08-2024 Refill Ray Guido RN [facility] Comment on above: Medication Refill 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) (Primary Dx); Elevated serum creatinine Start: 01-05-2024 End: 01-05-2024 Orders Only Ray Guido RN [facility] Comment on above: 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) (Primary Dx); Postoperative leak Start: 01-03-2024 End: 01-03-2024 Anticoagulant drug monitoring Michelle Littlejohn RPh,PharmD Work Phone: [facility] Start: 01-03-2024 End: 01-03-2024 Patient encounter procedure Lita Gu MD Work Phone: [facility] Comment on above: Acute deep vein thro mbosis (DVT) of axillary vein of left upper extremity (HCC) (Primary Dx) Start: 01-03-2024 End: 01-03-2024 Home visit Makenzie Garza RN [facility] Comment on above: SN HH NON-OASIS AGEN CY DISCHARGE Start: 01-03-2024 End: 01-08-2024 ambulatory LITA SMITHNATHAN [facility] Start: 01-02-2024 End: 01-02-2024 Home visit Makenzie Garza RN [facility] Comment on above: TELEPHONE ENCOUNTER Start: 12-27-2023 End: 12-27-2023 Anticoagulant drug monitoring Michelle Littlejohn RPh,PharmD Work Phone: [facility] Start: 12-27-2023 End: 12-27-2023 Patient encounter procedure Lita Gu MD Work Phone: [facility] Comment on above: Acute deep vein thro mbosis (DVT) of axillary vein of left upper extremity (HCC) (Primary Dx) Start: 12-27-2023 End: 12-28-2023 Home visit Nahid Lindsay PT [facility] Comment on above: PT NON-OASIS AGENCY DISCHARGE SVP MONETIZATION ROUTINE Start: 12-27-2023 End: 12-31-2023 ambulatory [facility] Start: 12-26-2023 End: 12-26-2023 Postop follow up visit related to original px Sarath Rey MD Work Phone: [facility] Comment on above: PVD (peripheral vasc ular disease) (HCC) (Primary Dx); 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); Renal insufficiency Start: 12-26-2023 End: 12-26-2023 ambulatory SARATH REY [facility] Start: 12-25-2023 End: 12-25-2023 Home visit Nahid Wheeler [facility] Comment on above: DIRECTOR OF FOOD AND BEVERAGE SERVICES ROUTINE VISIT Start: 12-21-2023 End: 12-25-2023 Transcribe Orders Michelle Littlejohn RPh,PharmD Work Phone: [facility] Comment on above: Acute deep vein thro mbosis (DVT) of axillary vein of left upper extremity (HCC) (Primary Dx) Start: 12-20-2023 End: 12-20-2023 Home visit Adilene Albright [facility] Comment on above: [facility] DIRECTOR OF FOOD AND BEVERAGE SERVICES ROUTINE VISIT Start: 12-20-2023 ambulatory YING SWEENEY [facility] Start: 12-18-2023 End: 12-18-2023 Home visit Ernestina Moody [facility] Comment on above: DIRECTOR OF FOOD AND BEVERAGE SERVICES ROUTINE VISIT Start: 12-14-2023 End: 12-14-2023 Home visit Ernestina Moody [facility] Comment on above: DIRECTOR OF FOOD AND BEVERAGE SERVICES ROUTINE VISIT Start: 12-13-2023 End: 12-13-2023 Anticoagulant drug monitoring Michelle Littlejohn RPh,PharmD Work Phone: [facility] Start: 12-13-2023 End: 12-13-2023 Patient encounter procedure Lita Gu MD Work Phone: [facility] Comment on above: Acute deep vein thro mbosis (DVT) of axillary vein of left upper extremity (HCC) (Primary Dx) Start: 12-13-2023 End: 12-13-2023 Home visit Makenzie Garza RN [facility] Comment on above: [facility] ROUT[facility] VISIT DIRECTOR OF FOOD AND BEVERAGE SERVICES ROUTINE VISIT Start: 12-13-2023 End: 12-17-2023 ambulatory YING QUISPE [facility] Start: 12-11-2023 End: 12-11-2023 ambulatory TYLOR KRUGER [facility] Start: 12-10-2023 End: 12-10-2023 Home visit Ernestina Moody [facility] Comment on above: CASE COMMUNICATION Start: 12-06-2023 End: 12-10-2023 Refill Tylor Kruger MD Work Phone: [facility] Comment on above: Medication Refill Acute deep vein thro mbosis (DVT) of axillary vein of left upper extremity (HCC) (Primary Dx) [facility] ROUTINE VISIT PT REASSESSMENT Start: 12-05-2023 End: 12-05-2023 Home visit Ernestina Moody [facility] Comment on above: DIRECTOR OF FOOD AND BEVERAGE SERVICES ROUTINE VISIT Start: 11-29-2023 End: 11-29-2023 Anticoagulant drug monitoring Adilene Bryan [facility],PharmD Work Phone: [facility] Start: 11-29-2023 End: 11-29-2023 Patient encounter procedure Lita Gu MD Work Phone: [facility] Comment on above: Acute deep vein thro mbosis (DVT) of axillary vein of left upper extremity (HCC) (Primary Dx) Start: 11-29-2023 End: 11-29-2023 Home visit Ernestina Moody [facility] Comment on above: DIRECTOR OF FOOD AND BEVERAGE SERVICES ROUTINE VISIT SVP MONETIZATION ROUTINE OT NON-OASIS/DISCIPL INE DISCHARGE Start: 11-29-2023 End: 12-03-2023 ambulatory ADILENE BRYAN [facility] Start: 11-28-2023 End: 11-28-2023 ambulatory [facility] Start: 11-28-2023 End: 11-28-2023 Home visit Ernestina Moody DIRECTOR OF FOOD AND BEVERAGE SERVICES [facility] Comment on above: DIRECTOR OF FOOD AND BEVERAGE SERVICES ROUTINE VISIT Start: 11-27-2023 End: 11-27-2023 Home visit Giovany Montalvo [facility] Comment on above: COLEMAN ROUTINE VISIT Start: 11-24-2023 End: 11-24-2023 Home visit Giovany Montalvo [facility] Comment on above: COLEMAN ROUTINE VISIT Start: 11-23-2023 End: 11-23-2023 Office outpatient visit 25 minutes Ying Quispe DO Work Phone: [facility] Comment on above: Orthostatic hypotens ion (Primary Dx); General weakness Start: 11-23-2023 End: 11-23-2023 [facility] Start: 11-23-2023 End: 11-23-2023 Home visit Giovany Montalvo [facility] Comment on above: COLEMAN ROUTINE VISIT DIRECTOR OF FOOD AND BEVERAGE SERVICES ROUTINE VISIT Start: 11-22-2023 End: 11-22-2023 Office outpatient visit 15 minutes [facility] Work Phone: [facility] Comment on above: Ischemia of toe (Vikki farrukh Dx); PVD (peripheral vascular disease) (HCC) Start: 11-22-2023 End: 11-22-2023 ambulatory [facility] Start: 11-21-2023 End: 11-25-2023 Orders Only Tylor Kruger MD Work Phone: [facility] Comment on above: PVD (peripheral vasc ular disease) (HCC) (Primary Dx) Acute deep vein thro mbosis (DVT) of axillary vein of left upper extremity (HCC) (Primary Dx) SVP MONETIZATION HH ROUTINE DIRECTOR OF FOOD AND BEVERAGE SERVICES ROUTINE VISIT Start: 11-20-2023 End: 11-20-2023 Refill Ying Quispe DO Work Phone: [facility] Start: 11-17-2023 End: 11-17-[facility] ROUTINE VISIT Start: 11-17-2023 End: 11-17-2023 Office outpatient visit 25 minutes Tylor Kruger MD Work Phone: [facility] Comment on above: 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) (Primary Dx); PVD (peripheral vascular disease) (HCC) Start: 11-17-2023 End: 11-20-2023 ambulatory TYLOR KRUGER [facility] Start: 11-16-2023 End: 11-16-2023 Home visit Ernestina Moody [facility] Comment on above: DIRECTOR OF FOOD AND BEVERAGE SERVICES ROUTINE VISIT Start: 11-16-2023 End: 11-16-2023 ambulatory TYLOR KRUGER [facility] Start: 11-14-2023 End: 11-14-2023 Anticoagulant drug monitoring Adilene Bryan RPh,PharmD Work Phone: [facility] Start: 11-14-2023 End: 11-14-2023 Patient encounter procedure Lita Gu MD Work Phone: [facility] Comment on above: Acute deep vein thro mbosis (DVT) of axillary vein of left upper extremity (HCC) (Primary Dx) Start: 11-14-2023 End: 11-14-2023 Home visit Adilene Calvinoliver [facility] Comment on above: [facility] INITIAL EVALUATIO N Start: 11-14-2023 End: 11-18-2023 ambulatory ADILENE BRYAN [facility] Start: 11-13-2023 End: 11-13-2023 Home visit Giovanyharshil Montalvo [facility] Comment on above: COLEMAN ROUTINE VISIT Start: 11-08-2023 End: 11-08-2023 Anticoagulant drug monitoring Michelle Littlejohn RPh,PharmD Work Phone: [facility] Start: 11-08-2023 End: 11-08-2023 Patient encounter procedure Lita Gu MD Work Phone: [facility] Comment on above: Acute deep vein thro mbosis (DVT) of axillary vein of left upper extremity (HCC) (Primary Dx) Start: 11-08-2023 End: 11-12-2023 ambulatory YING SWEENEY [facility] Start: 11-08-2023 End: 11-08-2023 Home visit Antonietta Monk LPN [facility] Comment on above: SVP MONETIZATION ROUTINE OT INITIAL EVALUATIO N Start: 11-06-2023 End: 11-06-2023 Home visit Makenzie Garza RN [facility] Comment on above: SN HH NON-OASIS SOC Start: 11-06-2023 ambulatory LITA GU [facility] Start: 11-03-2023 Documentation procedure Rafaela Garcias RN [facility] Start: 11-03-2023 Home visit Justine Kruger [facility] Comment on above: CASE COMMUNICATION Start: 11-02-2023 ambulatory BRONWYN [place] MART[facility] Comment on above: Hypertension, unspec ified type (Primary Dx); Orthostatic hypotension; TUTU (acute kidney injury) (HCC); Debility; Ruptured abdominal aortic aneurysm (AAA), unspecified part (HCC); Aftercare following surgery of the circulatory system Start: 11-01-2023 End: 11-01-2023 Postop follow up visit related to original px Cate Contreras WELDING PANTOGRAPH MACHINE OPERATOR Work Phone: [facility] Comment on above: 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) (Primary Dx) Start: 11-01-2023 End: 11-01-2023 ambulatory CATE CONTRERAS [facility] Start: 11-01-2023 End: 01-03-2024 ambulatory PCP UNKNOWN PHYSICIAN [facility] Start: 10-31-2023 ambulatory PCP UNKNOWN PHYSICIAN [facility] Start: 10-30-2023 ambulatory PCP UNKNOWN PHYSICIAN [facility] Start: 10-29-2023 ambulatory PCP UNKNOWN PHYSICIAN [facility] Start: 10-29-2023 ambulatory PCP UNKNOWN PHYSICIAN [facility] Start: 10-28-2023 ambulatory BRONWYN [place] [facility] Start: 10-27-2023 ambulatory BRONWYN N EDDISHITAL [facility] Start: 10-26-2023 ambulatory PCP UNKNOWN PHYSICIAN [facility] Start: 10-25-2023 [facility] Start: 10-25-2023 ambulatory BRONWYN [place] [facility] Start: 10-24-2023 ambulatory BRONWYN N [facility] Start: 10-23-2023 [facility] Start: 10-23-2023 Encounter for genera l adult medical examination without abnormal findings FRANK~[id number] ALLEN MARIE [facility] Start: 10-21-2023 ambulatory PCP UNKNOWN PHYSICIAN [facility] Start: 10-11-2023 Documentation procedure Yakelin Iqbal MA [facility] Comment on above: Ruptured abdominal a ortic aneurysm (AAA), unspecified part (HCC) (Primary Dx) Start: 10-09-2023 End: 10-20-2023 Evaluation and management of inpatient [facility] Start: 10-09-2023 End: 10-09-2023 Emergency department patient visit WARD [facility] Start: 10-09-2023 End: 10-09-2023 ambulatory THERESA MCGOWAN [facility] Start: 10-09-2023 ambulatory YING QUISPE [facility] Start: 09-28-2023 Refill Ying Pascual [facility] DO Work Phone: [facility] Comment on above: Hypothyroidism, unsp ecified type Start: 09-26-2023 End: 09-26-2023 Office outpatient visit 15 minutes Felicity Olson WELDING PANTOGRAPH MACHINE OPERATOR Work Phone: [facility] Comment on above: Acute right-sided lo w back pain without sciatica (Primary Dx) Start: 09-26-2023 End: 09-26-2023 ambulatory FELICITY OLSON [facility] Start: 09-07-2023 End: 09-07-2023 Anticoagulant drug monitoring Michelle Littlejohn RPh,PharmD Work Phone: [facility] Start: 09-07-2023 End: 09-07-2023 Patient encounter procedure Lita Gu MD Work Phone: [facility] Comment on above: Acute deep vein thro mbosis (DVT) of axillary vein of left upper extremity (HCC) (Primary Dx) Start: 09-07-2023 End: 09-11-2023 ambulatory [facility] Start: 08-24-2023 End: 08-24-2023 Office outpatient new 30 minutes Yfn Puckett DPM Work Phone: [facility] Comment on above: Weakness of right lo wer extremity (Primary Dx); Lumbosacral radiculopathy; Paresthesias Start: 08-24-2023 End: 08-24-2023 ambulatory THERESA MCGOWAN LUCRETIA [facility] Start: 08-10-2023 End: 08-10-2023 Anticoagulant drug monitoring Michelle Littlejohn RPh,PharmD Work Phone: [facility] Start: 08-10-2023 End: 08-10-2023 Patient encounter procedure Lita Gu MD Work Phone: [facility] Comment on above: Acute deep vein thro mbosis (DVT) of axillary vein of left upper extremity (HCC) (Primary Dx) Start: 08-10-2023 End: 08-14-2023 ambulatory [facility] Start: 07-18-2023 End: 07-18-2023 Office outpatient visit 25 minutes Yfn Puckett DPM Work Phone: [facility] Comment on above: Lumbosacral radiculo yanna (Primary Dx) Start: 2023 End: 2023 ambulatory YFN PUCKETT JR. [facility] Start: 07-13-2023 End: 07-13-2023 Anticoagulant drug monitoring Justine Hodges RPh,PharmD Work Phone: [facility] Start: 07-13-2023 End: 07-13-2023 Patient encounter procedure Lita Gu MD Work Phone: [facility] Comment on above: Acute deep vein thro mbosis (DVT) of axillary vein of left upper extremity (HCC) (Primary Dx) Start: 07-13-2023 End: 2023 ambulatory LITA SMITHNATHAN [facility] Start: 07-04-2023 End: 07-04-2023 ambulatory YFN PUCKETT JR. [facility] Start: 07-04-2023 End: 07-04-2023 Office outpatient new 30 minutes Yfn Puckett DPM Work Phone: [facility] Comment on above: Right-sided low back pain with right-sided sciatica, unspecified chronicity (Primary Dx); Idiopathic peripheral neuropathy Start: 06-19-2023 Refill Stephanie Lozano RN [facility] Comment on above: History of deep veno us thrombosis Start: 06-07-2023 End: 06-07-2023 Anticoagulant drug monitoring Adilene Bryan RPh,PharmD Work Phone: [facility] Start: 06-07-2023 End: 06-07-2023 Patient encounter procedure Lita Gu MD Work Phone: [facility] Comment on above: Acute deep vein thro mbosis (DVT) of axillary vein of left upper extremity (HCC) (Primary Dx) Start: 05-23-2023 Refill Kenna Vigil RN [facility] Comment on above: History of deep veno us thrombosis Start: 05-03-2023 End: 05-03-2023 Anticoagulant drug monitoring Adilene Bryan RPh,PharmD Work Phone: [facility] Start: 05-03-2023 End: 05-03-2023 Patient encounter procedure Lita Gu MD Work Phone: [facility] Comment on above: Acute deep vein thro mbosis (DVT) of axillary vein of left upper extremity (HCC) (Primary Dx) Start: 04-24-2023 End: 04-24-2023 Office outpatient visit 15 minutes Ying Quispe DO Work Phone: [facility] Comment on above: Hypothyroidism, unsp ecified type (Primary Dx) Start: 04-05-2023 End: 04-05-2023 Anticoagulant drug monitoring Michelle Littlejohn RPh,PharmD Work Phone: [facility] Start: 04-05-2023 End: 04-05-2023 Patient encounter procedure Lita Gu MD Work Phone: [facility] Comment on above: Acute deep vein thro mbosis (DVT) of axillary vein of left upper extremity (HCC) (Primary Dx) Start: 03-08-2023 End: 03-08-2023 Anticoagulant drug monitoring Michelle Littlejohn RPh,PharmD Work Phone: [facility] Start: 03-08-2023 End: 03-08-2023 Patient encounter procedure Lita Gu MD Work Phone: [facility] Comment on above: Acute deep vein thro mbosis (DVT) of axillary vein of left upper extremity (HCC) (Primary Dx) Start: 02-15-2023 End: 02-15-2023 Anticoagulant drug monitoring Adilene Bryan RPh,PharmD Work Phone: [facility] Start: 02-15-2023 End: 02-15-2023 Patient encounter procedure Lita Gu MD Work Phone: [facility] Comment on above: Acute deep vein thro mbosis (DVT) of axillary vein of left upper extremity (HCC) (Primary Dx) Start: 02-13-2023 End: 02-13-2023 ambulatory YING QUISPE [facility] Start: 02-01-2023 End: 02-01-2023 Anticoagulant drug monitoring Michelle Littlejohn RPh,PharmD Work Phone: [facility] Start: 02-01-2023 End: 02-01-2023 Patient encounter procedure Lita Gu MD Work Phone: [facility] Comment on above: Acute deep vein thro mbosis (DVT) of axillary vein of left upper extremity (HCC) (Primary Dx) Start: 01-25-2023 End: 01-25-2023 Office outpatient visit 25 minutes Yingsam Sweeney Brittaney GARCIA Work Phone: [facility] [facility] Comment on above: Hypothyroidism, unsp ecified type (Primary Dx); Familial hypercholesteremia; Encounter for screening mammogram for malignant neoplasm of breast Start: 01-16-2023 End: 01-16-2023 Anticoagulant drug monitoring Lavon Mcmullen RPh,PharmD Work Phone: [facility] Start: 01-16-2023 End: 01-16-2023 Patient encounter procedure Lita Gu MD Work Phone: [facility] Comment on above: Acute deep vein thro mbosis (DVT) of axillary vein of left upper extremity (HCC) (Primary Dx) Start: 01-09-2023 End: 01-09-2023 Anticoagulant drug monitoring Adilene Bryan RPh,PharmD Work Phone: [facility] Start: 01-09-2023 End: 01-09-2023 Patient encounter procedure Lita Gu MD Work Phone: [facility] Comment on above: Acute deep vein thro mbosis (DVT) of axillary vein of left upper extremity (HCC) (Primary Dx) Start: 01-02-2023 End: 01-02-2023 Anticoagulant drug monitoring Michelle Littlejohn RP,PharmD Work Phone: [facility] Start: 01-02-2023 End: 01-02-2023 Patient encounter procedure Lita Gu MD Work Phone: [facility] Comment on above: Acute deep vein thro mbosis (DVT) of axillary vein of left upper extremity (HCC) (Primary Dx) Start: 12-26-2022 End: 12-26-2022 Anticoagulant drug monitoring Adilene Bryan RPh,PharmD Work Phone: [facility] Start: 12-26-2022 End: 12-26-2022 Patient encounter procedure Lita Gu MD Work Phone: [facility] Comment on above: Acute deep vein thro mbosis (DVT) of axillary vein of left upper extremity (HCC) (Primary Dx) Start: 12-19-2022 End: 12-19-2022 Anticoagulant drug monitoring Michelle Littlejohn [facility],PharmD Work Phone: [facility] Start: 12-19-2022 End: 12-19-2022 Patient encounter procedure Lita Gu MD Work Phone: [facility] Comment on above: Acute deep vein thro mbosis (DVT) of axillary vein of left upper extremity (HCC) (Primary Dx) Start: 12-12-2022 Refill Kenna Vigil RN [facility] Comment on above: History of deep veno us thrombosis (Primary Dx) Start: 12-12-2022 End: 12-12-2022 Office outpatient visit 25 minutes Lita Gu MD Work Phone: [facility] Comment on above: History of deep veno us thrombosis (Primary Dx); Reactive lymphadenopathy; Factor V Leiden mutation (HCC) Start: 12-01-2022 End: 12-01-2022 Clinical Support Jennifer Hernandez MA [facility] Comment on above: Hyperlipidemia, unsp ecified hyperlipidemia type [E78.5] (Primary Dx) Start: 11-28-2022 End: 11-28-2022 Office outpatient visit 25 minutes Ying Quispe DO Work Phone: [facility] Comment on above: Acute non-recurrent maxillary sinusitis (Primary Dx); Familial hypercholesteremia Start: 10-25-2022 End: 10-25-2022 Office outpatient visit 25 minutes Lita Gu MD Work Phone: [facility] Comment on above: History of deep veno us thrombosis (Primary Dx); Axillary lymphadenopathy; Factor V Leiden mutation (HCC) Start: 10-23-2022 Refill Ying barber DO Work Phone: [facility] Comment on above: Hypothyroidism, unsp ecified type Start: 09-27-2022 Refill Kenna Vigil RN [facility] Comment on above: Acute deep vein thro mbosis (DVT) of axillary vein of left upper extremity (HCC) Start: 09-27-2022 End: 09-27-2022 Office outpatient visit 25 minutes Lita Gu MD Work Phone: [facility] Comment on above: History of deep veno us thrombosis (Primary Dx); Current smoker; Transaminitis; Factor V Leiden mutation (HCC); Lymphadenopathy; Decreased muscle strength; Lung nodule seen on imaging study Start: 09-20-2022 Coordination of care plan Amalia barbosa Patient Navigator Start: 09-16-2022 Refill Kenna Vigil RN [facility] Comment on above: Acute deep vein thro mbosis (DVT) of axillary vein of left upper extremity (HCC) Start: 08-15-2022 End: 08-15-2022 Office outpatient visit 25 minutes Ying Quispe DO Work Phone: [facility] Comment on above: Acute deep vein thro mbosis (DVT) of axillary vein of left upper extremity (HCC) (Primary Dx) Start: 07-06-2022 End: 07-06-2022 Office consultation new/estab patient 60 min Ying Quispe DO Work Phone: [facility] Comment on above: Current smoker (Prim howard Dx); Acute deep vein thrombosis (DVT) of axillary vein of left upper extremity (HCC); Cigarette smoker; Screening for malignant neoplasm of respiratory organ Start: 06-13-2022 End: 06-13-2022 Office outpatient visit 25 minutes Ying Quispe DO Work Phone: [facility] Comment on above: Acute deep vein thro mbosis (DVT) of axillary vein of left upper extremity (HCC) (Primary Dx) Start: 06-10-2022 End: 06-11-2022 Emergency department patient visit Shira Lopez MD Work Phone: [facility] Start: 06-06-2022 End: 06-06-2022 Office outpatient visit 25 minutes Ying Quispe DO Work Phone: [facility] Comment on above: Raynaud's phenomenon without gangrene (Primary Dx); Hypothyroidism, unspecified type Start: 04-06-2022 End: 04-06-2022 Office outpatient visit 15 minutes Ying Quispe DO Work Phone: [facility] Comment on above: Acute non-recurrent maxillary sinusitis (Primary Dx) Start: 01-05-2022 End: 01-05-2022 Office outpatient visit 15 minutes Felicity Olson CNP Work Phone: [facility] Comment on above: Toe infection (Prima ry Dx) Start: 11-25-2021 End: 11-25-2021 Office outpatient visit 15 minutes Yfn OLIVEIRAM Work Phone: [facility] Comment on above: Idiopathic periphera l neuropathy (Primary Dx) Start: 11-18-2021 End: 11-18-2021 Patient encounter status Ying Quispe DO Work Phone: [facility] Start: 11-18-2021 End: 11-18-2021 Periodic preventive med est patient 40-64yrs Ying Quispe DO Work Phone: [facility] Comment on above: Routine general medi cherrie examination at a health care facility (Primary Dx); Post-menopause; Encounter for screening mammogram for malignant neoplasm of breast; Colon cancer screening; Hypothyroidism, unspecified type Start: 11-05-2021 Refill Ying barber DO Work Phone: [facility] Comment on above: Hypothyroidism, unsp ecified type Start: 06-21-2021 End: 06-21-2021 Office outpatient visit 25 minutes Ying Quispe DO Work Phone: [facility] Comment on above: Acute non-recurrent maxillary sinusitis (Primary Dx) Start: 06-17-2021 End: 06-17-2021 Office outpatient new 30 minutes Yfn Puckett DPM Work Phone: [facility] Comment on above: Ganglion cyst of lef t foot (Primary Dx); Plantar fascial fibromatosis of left foot; Plantar keratosis, acquired Start: 05-12-2021 End: 05-12-2021 Office outpatient visit 25 minutes Ying Quispe DO Work Phone: [facility] Comment on above: Hypothyroidism, unsp ecified type (Primary Dx); Hyperlipidemia, unspecified hyperlipidemia type Start: 09-29-2020 End: 09-29-2020 Office outpatient visit 25 minutes Bambi Huynh MD Work Phone: [facility] Comment on above: Hypothyroidism, unsp ecified type (Primary Dx); Hip pain Start: 09-28-2020 End: 09-28-2020 Orders Only Bambi Huynh MD Work Phone: [facility] Comment on above: Hypothyroidism, unsp ecified type (Primary Dx) Start: 08-12-2020 End: 08-12-2020 Orders Only Daisy Cosme Work Phone: [facility] Start: 07-29-2020 Refill Bambi Huynh MD Work Phone: [facility] Start: 12-06-2019 End: 12-06-2019 Patient encounter procedure BAMBI HUYNH [facility] Start: 12-06-2019 End: 12-06-2019 Office outpatient visit 25 minutes Rebeca Kaur Work Phone: [facility] [place] Comment on above: Close Exposure to Co vid-19 Virus (Primary Dx); Cough; Wheezing; Cigarette Smoker; Upper respiratory tract infection, unspecified type Start: 05-01-2019 End: 05-01-2019 Patient encounter procedure Bambi Huynh Work Phone: [facility] Comment on above: Bilateral hip pain Start: 04-29-2019 End: 04-29-2019 Patient encounter procedure Bambi Huynh Work Phone: [facility] Comment on above: Bilateral hip pain Start: 04-24-2019 End: 04-24-2019 Patient encounter procedure Bambi Huynh Work Phone: [facility] Comment on above: Bilateral hip pain Start: 04-22-2019 End: 04-22-2019 Patient encounter procedure Bambi Huynh Work Phone: [facility] Comment on above: Bilateral hip pain Start: 04-17-2019 End: 04-17-2019 Patient encounter procedure Bambi Huynh Work Phone: [facility] Comment on above: Bilateral hip pain Start: 04-15-2019 End: 04-15-2019 Patient encounter procedure Bambi Huynh Work Phone: [facility] Comment on above: Bilateral hip pain Start: 04-08-2019 End: 04-08-2019 Patient encounter procedure Bambi Huynh Work Phone: [facility] Comment on above: Hip pain, bilateral; Bilateral hip pain Start: 03-25-2019 End: 03-25-2019 Office outpatient visit 15 minutes Bambi Huynh Work Phone: [facility] Comment on above: Hypothyroidism, unsp ecified type (Primary Dx); Hip pain, bilateral Start: 01-14-2019 End: 01-14-2019 Office outpatient visit 25 minutes Bambi Huynh Work Phone: [facility] Comment on above: Hypothyroidism, unsp ecified type (Primary Dx); Hyperlipidemia, unspecified hyperlipidemia type; Hip pain, bilateral Start: 11-06-2018 End: 11-06-2018 Postop follow up visit related to original px Mendez Iglesia Roy Work Phone: [facility] Comment on above: Trochanteric bursiti s of right hip (Primary Dx) Start: 10-12-2018 End: 10-12-2018 Postop follow up visit related to original px Татьяна Jenkins Work Phone: [facility] Comment on above: S/P appendectomy (Pr imary Dx) Start: 09-14-2018 End: 09-15-2018 Emergency department patient visit Rosendo Tyson Work Phone: [facility] Comment on above: Acute appendicitis, unspecified acute appendicitis type (Primary Dx); Acute appendicitis with localized peritonitis and gangrene, without perforation or abscess Start: 09-14-2018 End: 09-14-2018 Emergency department patient visit Dewayne Barlow Work Phone: [facility] Comment on above: Acute appendicitis, unspecified acute appendicitis type (Primary Dx) Start: 09-14-2018 End: 09-14-2018 Documentation procedure Bambi Huynh Work Phone: [facility] Start: 09-14-2018 End: 09-14-2018 Office outpatient visit 25 minutes Bambi Huynh Work Phone: [facility] Comment on above: Right lower quadrant abdominal pain (Primary Dx); Dysuria Start: 2018 End: 2018 Office outpatient visit 25 minutes Bambi Huynh Work Phone: [facility] Comment on above: Chronic left hip mehrdad n (Primary Dx); Hypothyroidism, unspecified type; Hyperlipidemia, unspecified hyperlipidemia type Start: 09-28-2017 Ambulatory Bambi Huynh Facility:[place] Start: 09-28-2017 End: 09-28-2017 Ambulatory Bambi Huynh Work Phone: [facility] Start: 09-05-2017 Office/outpatient vi sit, new, level 3 Bambi Huynh Work Phone: [facility] Start: 07-20-2017 Ambulatory Cuauhtemoc Barrios Work Phone: [facility] Start: 07-03-2017 Office/outpatient vi sit, est, level 3 Bambi Huynh Work Phone: [facility] Procedures Date Procedure Procedure Detail Performing Clinician Start: 11-20-[address] Ethna Bradley Work Phone: Start: 11-20-2024 End: 11-20-2024 Microbial culture, routine Dr. Ethan glass MD Work Phone: Start: 11-18-2024 Blood count smear mcrscp w/mnl difrntl wbc count Dr. Ethan Rodriguez MD Work Phone: Start: 11-18-2024 Mean corpuscular hemoglobin concentration determination Dr. Ethan Rodriguez MD Work Phone: Start: 11-18-2024 Nucleated red blood cell count procedure Dr. Ethan Rodriguez MD Work Phone: Start: 11-18-2024 Platelet mean volume determination Dr. Karen Rodriguez MD Work Phone: Start: 11-05-[address] Ethan Bradley Work Phone: Start: 11-05-2024 End: 11-05-2024 Microbial culture, routine Dr. Ethan glass MD Work Phone: Start: 11-04-2024 Blood count smear mcrscp w/mnl difrntl wbc count Dr. Ethan Rodriguez MD Work Phone: Start: 11-04-2024 Hepatitis A virus antibody, IgM type Dr. Ethan Rodriguez MD Work Phone: Start: 11-04-2024 Hepatitis B core antibody measurement, IgM type Dr. Ethan Rodriguez MD Work Phone: Start: 11-04-2024 Hepatitis C antibody measurement Dr. Ava Rodriguez MD Work Phone: Start: 11-04-2024 Mean corpuscular hemoglobin concentration determination Dr. Ethan Rodriguez MD Work Phone: Start: 11-04-2024 Nucleated red blood cell count procedure Dr. Ethan Rodriguez MD Work Phone: Start: 11-04-2024 Platelet mean volume determination Dr. Karen Rodriguez MD Work Phone: Start: 10-30-2024 Mean corpuscular hemoglobin concentration determination Dr. Ethan Rodriguez MD Work Phone: Start: 10-30-2024 Platelet mean volume determination Dr. Karen Rodriguez MD Work Phone: Start: 09-16-2024 Mean corpuscular hemoglobin concentration determination [...] Mean corpuscular hemoglobin concentration determination Dr. Ethan Rodirguez MD Work Phone: Start: 08-13-2024 Nucleated red blood cell count procedure Dr. Ethan Rodriguez MD Work Phone: Start: 08-13-2024 Platelet mean volume determination Dr. Karen Rodriguez MD Work Phone: Start: 08-12-2024 Antibody screen Millie Massey Comment on above: Order Comment: CMV NEG? NNumber of units to transfuse: 1Reason for Ordering Blood: AcuteAre the blood/blood products to be transfused? YIs the patient having/had surgery? NNWhen ReadyNYA Result Comment: AMENDED REPORT 08/12/24 1425: ANTIBODY SCREEN previously reported as:POSITIVE Performed By: #### B RC, [id number], BTS, BtABORH, [id number] ####[facility] [id number] [place], [address] Start: 08-08-2024 Computed tomography of abdomen and [...] measurement Dr. Ethan Bradley Work Phone: Start: 1 End: 07-18-2024 Blood count smear mcrscp w/mnl difrntl wbc count Dr. Ethan Rodriguez MD Work Phone: Start: 07-18-2024 BUN/Creatinine ratio Dr. Ethan Rodriguez MD Work Phone: Start: 07-18-[address] Ethan Rodriguze MD Work Phone: Start: 07-18-2024 Mean corpuscular [...] abdomen and pelvis with contrast Dr. Ethan Rdoriguez MD Work Phone: Start: 06-25-2024 Anion gap [...] PHYSICIAN Comment on above: Performed By: #### [id number] #### [facility] [address] [place] [address] Start: 09-07-2023 Prothrombin time Lita Gu MD [...] Work Phone: Start: 02-13-2023 Mammography Adilene Bryan [facility],PharmD Work Phone: Start: 02-01-2023 Prothrombin time Lita Gu MD Work Phone: Start: 01-25-2023 Comprehensive metabolic panel Ying uGajardo DO Work Phone: Start: 01-25-2023 Lipid panel [...] 06-10-2022 Radiologic exam chest single view Naeem olsen Porfirio Whyte PA-C Work Phone: Start: 06-10-2022 [...] Work Phone: Start: 06-10-2022 RAINBOW DRAW Shira oLpez MD Work Phone: Start: 06-06-2022 Adult depression [...] 1996 panel - Serum or Plasma Wilver hugh Quispe DO Work Phone: Start: 09-15-2018 Basic metabolic 1999 panel - Serum or Plasma Татьяна Jenkins Work Phone: Start: 09-14-2018 CT of urinary tract Dewayne Barlow Work Phone: Start: 09-14-2018 Basic metabolic 1998 panel - Serum or Plasma Dewayne Barlow Work Phone: Start: 09-14-2018 Complete blood count with white cell differential, automated Dewayne Barlow Work Phone: Start: 09-14-2018 Complete blood count with white cell differential, manual Dewayne Barlow Work Phone: Start: 07-04-2016 Mammography Bambi Huynh Plan of Treatment Date Care Activity Detail Author Start: 03-19-2025 Urine screening for protein eGFR - Kidney Disease [facility] Start: 12-20-2024 Screening for malignant neoplasm of colon [facility] Start: 09-15-2024 [facility] Start: 09-15-2024 [facility] Start: 08-31-2024 Oxygen therapy [facility] Start: 08-31-2024 Administration of blood product [facility] Start: 08-31-2024 [facility] Start: 08-31-2024 Following clinical pathway protocol [facility] Start: 08-31-2024 Transfusion of blood product [facility] Start: 08-17-2024 Patient discharge [facility] Start: 08-16-2024 [facility] Start: 08-16-2024 Hemodialysis care [facility] Start: 08-15-2024 Anaerobic microbial culture [facility] Start: 08-15-2024 End: 08-15-2024 [facility] Start: 08-15-2024 Care of hemodialysis equipment [facility] Start: 08-15-2024 Wound care [facility] Start: 08-15-2024 End: 08-15-2024 Microbial culture, body fluid [facility] Start: 08-15-2024 Vital signs measurements [facility] Start: 08-15-2024 Ultrasonic guidance for thoracentesis [facility] Start: 08-14-2024 Application of intermittent pneumatic compression device [facility] Start: 08-14-2024 Care regimes management [facility] Start: 08-14-2024 Notification of physician [facility] Start: 08-14-2024 End: 08-14-2024 [facility] Start: 08-14-2024 Blood culture [facility] Start: 08-14-2024 Urine culture [facility] Start: 08-14-2024 Dialysis care [facility] Start: 08-14-2024 Following clinical pathway protocol [facility] Start: 08-14-2024 Care of hemodialysis equipment [facility] Start: 08-14-2024 Ambulation without limitation [facility] Start: 08-14-2024 Application of elastic bandage [facility] Start: 08-14-2024 Assessment of risk of venous thromboembolism [facility] Start: 08-14-2024 Elevation of affected extremity [facility] Start: 08-14-2024 Insertion of catheter into peripheral vein [facility] Start: 08-14-2024 Measuring intake and output [facility] Start: 08-14-2024 Notification of physician [facility] Start: 08-14-2024 Oxygen therapy [facility] Start: 08-14-2024 Patient education [facility] Start: 08-14-2024 Providing care according to standard [facility] Start: 08-14-2024 Referral to occupational therapist [facility] Start: 08-14-2024 Referral to service [facility] Start: 08-14-2024 Speech therapy assessment [facility] Start: 08-14-2024 Hemodialysis care [facility] Start: 08-14-2024 End: 08-14-2024 [facility] Start: 08-14-2024 Cell count and Differential panel - Body fluid [facility] Start: 08-14-2024 Glucose measurement, body fluid [facility] Start: 08-14-2024 Lactate dehydrogenase [Enzymatic activity/volume] in Body fluid by Pyruvate to lactate reaction [facility] Start: 08-14-2024 Microbial culture, body fluid [facility] Start: 08-14-2024 Microscopic observation [Identifier] in Body fluid by Cyto stain [facility] Start: 08-14-2024 Protein [Mass/volume] in Body fluid [facility] Start: 08-14-2024 Verification routine [facility] Start: 08-14-2024 Admission procedure [facility] Start: 08-14-2024 Referral to nursing home admissions director [facility] Start: 08-14-2024 Hospital admission, emergency, from emergency room, medical nature [facility] Start: 08-14-2024 [facility] Start: 08-14-2024 End: 08-14-2024 [facility] Start: 08-14-2024 Patient referral to dietitian [facility] Start: 08-13-2024 End: 08-13-2024 [facility] Start: 08-13-2024 Care of hemodialysis equipment [facility] Start: 08-13-2024 Patient discharge [facility] Start: 08-12-2024 Care regimes management [facility] Start: 08-12-2024 Notification of physician [facility] Start: 08-12-2024 [facility] Start: 08-12-2024 Administration of blood product [facility] Start: 08-12-2024 Care of hemodialysis equipment [facility] Start: 08-12-2024 Hemodialysis care [facility] Start: 08-12-2024 End: 08-12-2024 [facility] Start: 08-09-2024 End: 08-09-2024 [facility] Start: 08-09-2024 Hemodialysis care [facility] Start: 08-07-2024 End: 08-08-2024 [facility] Start: 08-07-2024 Attention to flatus tube [facility] Start: 08-07-2024 Care of hemodialysis equipment [facility] Start: 08-07-2024 Hemodialysis care [facility] Start: 08-07-2024 [facility] Start: 08-05-2024 End: 08-06-2024 [facility] Start: 08-05-2024 Referral to occupational therapist [facility] Start: 08-05-2024 Referral to service [facility] Start: 08-05-2024 Care of hemodialysis equipment [facility] Start: 08-05-2024 Hemodialysis care [facility] Start: 08-04-2024 End: 08-05-2024 [facility] Start: 08-04-2024 Administration of blood product [facility] Start: 08-04-2024 Notification of physician [facility] Start: 08-04-2024 Care regimes management [facility] Start: 08-04-2024 [facility] Start: 08-03-2024 Nil by mouth [facility] Start: 08-02-2024 End: 08-03-2024 [facility] Start: 08-02-2024 Application of intermittent pneumatic compression device [facility] Start: 08-02-2024 Care of hemodialysis equipment [facility] Start: 08-02-2024 Hemodialysis care [facility] Start: 08-01-2024 Wound care [facility] Start: 08-01-2024 Care of hemodialysis equipment [facility] Start: 08-01-2024 Hemodialysis care [facility] Start: 08-01-2024 End: 08-01-2024 [facility] Start: 07-31-2024 Consultation for treatment [facility] Start: 07-31-2024 Following clinical pathway protocol [facility] Start: 07-31-2024 Ambulation without limitation [facility] Start: 07-31-2024 Assessment of risk of venous thromboembolism [facility] Start: 07-31-2024 Insertion of catheter into peripheral vein [facility] Start: 07-31-2024 Oxygen therapy [facility] Start: 07-31-2024 Providing care according to standard [facility] Start: 07-31-2024 Referral to gastroenterology service [facility] Start: 07-31-2024 Referral to nursing home admissions director [facility] Start: 07-31-2024 Referral to service [facility] Start: 07-31-2024 [facility] Start: 07-31-2024 Admission procedure [facility] Start: 07-31-2024 Patient referral to dietitian [facility] Start: 07-29-2024 Patient discharge [facility] Start: 07-29-2024 Care of hemodialysis equipment [facility] Start: 07-29-2024 Hemodialysis care [facility] Start: 07-29-2024 [facility] Start: 07-26-2024 Care of hemodialysis equipment [facility] Start: 07-26-2024 Hemodialysis care [facility] Start: 07-26-2024 [facility] Start: 07-25-2024 Oxygen therapy [facility] Start: 07-25-2024 Care of hemodialysis equipment [facility] Start: 07-25-2024 Hemodialysis care [facility] Start: 07-25-2024 [facility] Start: 07-24-2024 Wound care [facility] Start: 07-23-2024 Application of intermittent pneumatic compression device [facility] Start: 07-23-2024 Assessment of risk of venous thromboembolism [facility] Start: 07-23-2024 Consultation for treatment [facility] Start: 07-23-2024 Documentation procedure [facility] Start: 07-23-2024 Insertion of catheter into peripheral vein [facility] Start: 07-23-2024 Patient referral to dietitian [facility] Start: 07-23-2024 Providing care according to standard [facility] Start: 07-23-2024 Provision of activity privileges [facility] Start: 07-23-2024 Referral to gastroenterology service [facility] Start: 07-23-2024 Referral to nursing home admissions director [facility] Start: 07-23-2024 Referral to occupational therapist [facility] Start: 07-23-2024 Referral to service [facility] Start: 07-23-2024 [facility] Start: 07-23-2024 Admission procedure [facility] Start: 07-18-2024 [facility] Start: 07-18-2024 [facility] Start: 02-26-2024 End: 02-26-2024 Patient encounter procedure 02/26/2024 2:00 PM EDT Office Visit [facility] [address] [place] [address] Ying Quispe DO [address] [place] [address] [facility] Start: 02-14-2024 Screening for malignant neoplasm of breast Mammogram [facility] Start: 01-30-2024 End: 01-30-2024 Patient encounter procedure 01/30/2024 3:30 PM EDT Office Visit [facility] [address], 3rd [place] [address] Sarath Rey MD [address] [place] [address] [facility] Start: 01-28-2024 COVID-19 Vaccine ( season) COVID-19 Vaccine ( season) [facility] Start: 01-28-2024 COVID-19 Vaccine ( season) COVID-19 Vaccine () [facility] Start: 01-28-2024 Influenza vaccination [facility] Start: 01-26-2024 Lipid panel Lipid Panel [facility] Start: 01-24-2024 End: 01-24-2024 Admission to same day surgery center 01/24/2024 7:10 AM EDT - 01/24/2024 11:55 AM EDT Surgery [facility] [address] [place] [address] Edenilson Guerra DO [address] [place] [address] Explant of Endograft and Open Aortic Aneurysm Repair [facility] Comment on above: Explant of Endograft and Open Aortic Ane urysm Repair Start: 01-24-2024 End: 01-24-2024 Dir rpr ruptd aneurysm abdominal aorta ANEURYSM REPAIR ABDOMINAL AORTIC (AAA) Juxtarenal abdominal aortic aneurysm, ruptured (HCC) 01/24/2024 7:10 AM EDT [facility] Start: 01-24-2024 Subsequent hospital visit by physician [facility] Start: 01-23-2024 End: 01-23-2024 Patient encounter procedure 01/23/2024 3:30 PM EDT Office Visit [facility] [address] 3rd [place] [address] Sarath Rey MD [address] [place] [address] [facility] Start: 01-10-2024 End: 01-10-2024 Patient encounter procedure 01/10/2024 8:15 AM EDT Anticoag visit [facility] [address] [facility] [address] [place] [address] [facility] Start: 01-09-2024 End: 01-09-2024 Patient encounter procedure 01/09/2024 1:00 PM EDT Office Visit [facility] [address] [facility], 3rd [place] [address] Sarath Rey MD [address] [place] [address] [facility] Start: 01-09-2024 Subsequent hospital visit by physician 01/09/2024 9:00 AM EDT Hospital Encounter [facility] CT Scan [address] [place] [address] Sarath Rey MD [address] [place] [address] [facility] [address] Scan Start: 01-05-2024 End: 01-05-2024 Patient encounter procedure [facility] Start: 01-03-2024 End: 01-03-2024 Patient encounter procedure [facility] Comment on above: Acute deep vein thrombosis (DVT) of axil yusuf vein of left upper extremity (HCC) (Primary Dx) Start: 01-03-2024 End: 01-03-2024 Home visit [facility] Start: 01-02-2024 End: 01-02-2024 Home visit 01/02/2024 11:45 AM EDT Home Care Visit [address] [address] Makenzie Garza RN [facility] Start: 12-28-2023 End: 12-28-2023 Home visit 12/28/2023 9:45 AM EDT Home Care Visit [address] [address] Nahid Lindsay PT [facility] Start: 12-27-2023 End: 12-27-2023 Patient encounter procedure [facility] Start: 12-27-2023 End: 12-27-2023 Home visit [facility] Start: 12-26-2023 End: 12-26-2023 Patient encounter procedure [facility] Start: 12-25-2023 End: 12-25-2023 Home visit 12/25/2023 3:00 PM EDT Home Care Visit [address] [address] Nahid Wheeler PTA [facility] Start: 12-21-2023 End: 12-21-2023 Patient encounter procedure [facility] Comment on above: Acute deep vein thrombosis (DVT) of axil yusuf vein of left upper extremity (HCC) (Primary Dx) Start: 12-21-2023 End: 12-20-2024 INR in Platelet poor plasma by Coagulation assay PT/INR Lab STAT Acute deep vein thrombosis (DVT) of axillary vein of left upper extremity (HCC) Expected: 12/21/2023, Expires: 12/20/2024 [facility] Work Phone: Comment on above: Expected: 12/21/2023, Expires: Start: 12-20-2023 End: 12-20-2023 Patient encounter procedure 12/20/2023 5:00 PM EDT Anticoag visit [facility] [address] [place] [address] [facility] Start: 12-20-2023 End: 12-20-2023 Home visit [facility] Start: 12-15-2023 COVID-19 Vaccine ( season) COVID-19 Vaccine ( season) [facility] Start: 12-15-2023 End: 12-15-2023 Home visit 12/15/2023 6:00 AM EDT Home Care Visit [address] [address] Ernestina Moody PTA [facility] Start: 12-13-2023 End: 12-13-2023 Patient encounter procedure [facility] Start: 12-13-2023 End: 12-13-2023 Home visit [facility] Start: 12-11-2023 End: 12-11-2023 Patient encounter procedure 12/11/2023 2:00 PM EDT Appointment [facility] CT Scan [address] [place] [address] Tylor Kruger MD [address] [facility] [address] [place] [address] [facility] [address] Scan Start: 12-11-2023 End: 12-11-2023 Home visit 12/11/2023 11:00 AM EDT Home Care Visit [address] [address] Ernestina Moody PTA [facility] Start: 12-06-2023 End: 12-06-2023 Patient encounter procedure [facility] Comment on above: Acute deep vein thrombosis (DVT) of axil yusuf vein of left upper extremity (HCC) (Primary Dx) Start: 12-06-2023 End: 12-06-2023 Home visit [facility] Start: 12-05-2023 End: 12-05-2023 Home visit 12/05/2023 11:00 AM EDT Home Care Visit [address] [address] Ernestina Moody PTA [facility] Start: 11-29-2023 End: 11-29-2023 Patient encounter procedure [facility] Comment on above: Arrived Start: 11-29-2023 Depression screening using PHQ-9 (Patient Health Questionnaire 9) score [facility] Start: 11-29-2023 BEKAH-7 Screening BEKAH-7 Screening [facility] Start: 11-29-2023 End: 11-29-2023 Home visit [facility] Start: 11-28-2023 End: 11-28-2023 Patient encounter procedure 11/28/2023 3:00 PM EDT Appointment [facility] [address] [place] [place] [address] Abigail Estrella, WELDING PANTOGRAPH MACHINE OPERATOR [address] [place] [address] [facility] Start: 11-27-2023 End: 11-27-2023 Home visit 11/27/2023 4:00 PM EDT Home Care Visit [address] [address] Giovany Montalvo OTA [facility] Start: 11-24-2023 End: 11-24-2023 Home visit 11/24/2023 3:45 PM EDT Home Care Visit [address] [address] Giovany Montalvo OTA [facility] Start: 11-23-2023 End: 11-23-2023 Patient encounter procedure 11/23/2023 1:30 PM EDT Office Visit [facility] [address] [place] [address] Ying Quispe DO [address] [place] [address] [facility] Start: 11-23-2023 End: 11-23-2023 Home visit [facility] Start: 11-22-2023 End: 11-22-2023 Patient encounter procedure 11/22/2023 2:00 PM EDT Office Visit [facility] [address] [place], [place] [address] [place] [address] Abigail Estrella, WELDING PANTOGRAPH MACHINE OPERATOR [address] [place] [address] Discharge Disposition: Home [facility] Start: 11-21-2023 End: 11-21-2023 Patient encounter procedure [facility] Comment on above: Acute deep vein thrombosis (DVT) of axil yusuf vein of left upper extremity (HCC) (Primary Dx) Start: 11-21-2023 End: 11-21-2023 Home visit [facility] Start: 11-18-2023 End: 11-16-2024 CTA Abdominal Aorta and Bilateral Runoff Vessels W contrast IV CT Angiogram Abdominal Aorta With Lower Extremity Imaging Routine 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) PVD (peripheral vascular disease) (HCC) Expected: 11/18/2023, Expires: 11/16/2024 [facility] Comment on above: Expected: 11/18/2023, Expires: 5 Start: 11-17-2023 End: 11-17-2023 Home visit 11/17/2023 3:30 PM EDT Home Care Visit [address] [address] Giovany Montalvo OTA [facility] Start: 11-17-2023 End: 11-16-2024 Creatinine [Mass/volume] in Serum or Plasma Creatinine, serum Lab Routine 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) PVD (peripheral vascular disease) (HCC) Expected: 11/17/2023, Expires: 11/16/2024 [facility] Work Phone: Comment on above: Expected: 11/17/2023, Expires: Start: 11-17-2023 End: 11-17-2023 Patient encounter procedure 11/17/2023 8:00 AM EDT Office Visit [facility] [address] [facility] [address] [place] [address] Tylor Kruger MD [address] [place] [address] [facility] Start: 11-16-2023 End: 11-16-2023 Home visit [facility] Start: 11-16-2023 End: 11-16-2023 Patient encounter procedure 11/16/2023 9:00 AM EDT Appointment [facility] [address] [place] [address] [place] [address] Tylor Kruger MD [address] [place] [address] [facility] Start: 11-16-2023 Subsequent hospital visit by physician 11/16/2023 9:00 AM EDT Hospital Encounter [facility] [address] [place] [address] Tylor Kruger MD [address] [place] [address] [facility] Start: 11-14-2023 End: 11-14-2023 Patient encounter procedure [facility] Comment on above: Arrived Start: 11-14-2023 End: 11-14-2023 Home visit [facility] Start: 11-14-2023 End: 11-14-2023 Home visit 11/14/2023 Home Care Visit [address] [address] Addie Purcell RN [facility] Start: 11-11-2023 End: 12-10-2024 US angiography of renal artery Ultrasound renal artery duplex, complete Vascular Ultrasound Routine Ruptured abdominal aortic aneurysm (AAA), unspecified part (HCC) Expected: 11/11/2023, Expires: 12/10/2024 [facility] Work Phone: Comment on above: Expected: 11/11/2023, Expires: Start: 11-10-2023 End: 11-10-2023 Home visit [facility] Start: 11-10-2023 End: 11-10-2023 Home visit 11/10/2023 Home Care Visit [address] [address] Addie Purcell RN [facility] Start: 11-08-2023 End: 11-08-2023 Patient encounter procedure 11/08/2023 5:00 PM EDT Anticoag visit [facility] [address] [place] [address] Lita Gu MD [address] [place] [address] Discharge Disposition: Home [facility] Start: 11-08-2023 End: 11-08-2023 Home visit [facility] Start: 11-08-2023 End: 11-08-2023 Home visit 11/08/2023 Home Care Visit [address] [address] Addie Purcell RN [facility] Start: 11-06-2023 End: 11-06-2023 Patient encounter procedure 11/06/2023 8:30 AM EDT Appointment [address] [address] Makenzie Garza RN [facility] Start: 11-01-2023 End: 11-01-2023 Follow-up encounter 11/01/2023 1:00 PM EDT Follow-Up [facility] [address] [facility] [address] [place] [phone] Cate Contreras, WELDING PANTOGRAPH MACHINE OPERATOR [address] [place] [address] [facility] Start: 10-25-2023 End: 10-25-2023 Patient encounter procedure 10/25/2023 8:30 AM EDT Office Visit [facility] [address] [place] [address] Ying Quispe DO [address] [place] [address] [facility] Start: 10-17-2023 End: 10-17-2023 Patient encounter procedure 10/17/2023 1:30 PM EDT Procedure visit [facility] [address] Medical Office Building, 2nd [place] [address] Cuauhtemoc Barrios MD [address] [address] [facility] Start: 10-12-2023 End: 10-12-2023 Patient encounter procedure [facility] Start: 10-09-2023 End: 10-09-2023 Patient encounter procedure [facility] CT Scan Start: 09-19-2023 End: 09-19-2023 Patient encounter procedure [facility] Start: 09-18-2023 End: 09-18-2023 Patient encounter procedure 09/18/2023 9:45 AM EDT Appointment [facility] MRI [address] [place] [phone] Theresa Boykin PA-C [address] [address] [facility] MRI Start: 09-18-2023 End: 09-18-2023 Patient encounter procedure 09/18/2023 8:40 AM EDT Appointment [facility] CT Scan [address] [place] [address] Lita Gu MD [address] [place] [address] [facility] [address] Scan Start: 09-07-2023 End: 09-07-2023 Patient encounter procedure 09/07/2023 8:15 AM EDT Anticoag visit [facility] [address] [place] [address] [facility] Start: 08-10-2023 End: 08-10-2023 Patient encounter procedure 08/10/2023 8:30 AM EDT Anticoag visit [facility] [address] [place] [address] [facility] Start: 07-18-2023 End: 07-18-2023 Patient encounter procedure 07/18/2023 9:00 AM EST Office Visit [facility] [place] [address] Yfn Puckett Jr., DPM [address] [place] [address] [facility] Start: 2023 End: 2023 Patient encounter procedure 2023 8:00 AM EST Appointment [facility] [address] [place] [address] [place] [address] Yfn Puckett Jr., YELITZA [address] [place] [address] [facility] Start: 07-13-2023 End: 07-13-2023 Patient encounter procedure 07/13/2023 8:15 AM EST Anticoag visit [facility] [address] [place] [address] [facility] Start: 06-07-2023 End: 06-07-2023 Patient encounter procedure 06/07/2023 8:15 AM EST Anticoag visit [facility] [address] [place] [address] [facility] Start: 06-06-2023 Depression screening using PHQ-9 (Patient Health Questionnaire 9) score Depression Screening (PHQ-2/9) [facility] Start: 06-06-2023 BEKAH-7 Screening BEKAH-7 Screening [facility] Start: 05-03-2023 End: 05-03-2023 Patient encounter procedure 05/03/2023 8:15 AM EST Anticoag visit [facility] [address] [place] [address] [facility] Start: 04-24-2023 End: 04-24-2023 Patient encounter procedure 04/24/2023 11:30 AM EST Office Visit [facility] [address] [place] [address] Ying Quispe DO [address] [place] [address] [facility] Start: 04-10-2023 End: 04-10-2023 Patient encounter procedure 04/10/2023 8:15 AM EST Office Visit [facility] [address] [place] [address] Lita Gu MD [address] [place] [address] [facility] Start: 04-05-2023 End: 04-05-2023 Patient encounter procedure 04/05/2023 8:00 AM EST Anticoag visit [facility] [address] [place] [address] [facility] Start: 03-08-2023 End: 03-08-2023 Patient encounter procedure 03/08/2023 8:00 AM EDT Anticoag visit [facility] [address] [place] [address] [facility] Start: 02-15-2023 End: 02-15-2023 Patient encounter procedure 02/15/2023 8:00 AM EDT Anticoag visit [facility] [address] [place] [address] [facility] Start: 02-13-2023 End: 02-13-2023 Patient encounter procedure 02/13/2023 9:30 AM EDT Appointment [facility] [address] [place] [id number] Ying Quispe DO [address] [place] [address] [facility] Start: 02-08-2023 End: 03-27-2024 MG Breast - bilateral Screening Mammography Screening Jose Bilateral Imaging Routine Encounter for screening mammogram for malignant neoplasm of breast Expected: 02/08/2023, Expires: 03/27/2024 [facility] Comment on above: Expected: 02/08/2023, Expires: Start: 02-03-2023 End: 02-03-2023 Patient encounter procedure 02/03/2023 11:00 AM EDT Office Visit [facility] [address] [facility] Medical Office Building, 2nd [place] [address] Lita Gu MD [address] [place] [address] Nazario Almeida MD [address] [facility] 2nd [place] [address] [facility] Start: 02-01-2023 End: 02-01-2023 Patient encounter procedure 02/01/2023 8:00 AM EDT Anticoag visit [facility] [address] [place] [address] [facility] Start: 01-27-2023 COVID-19 Vaccine ( season) COVID-19 Vaccine ( season) [facility] Start: 01-27-2023 Influenza vaccination [facility] Start: 01-25-2023 End: 01-25-2023 Patient encounter procedure 01/25/2023 3:45 PM EDT Office Visit [facility] [address] [place] [address] Ying Quispe DO [address] [place] [address] [facility] Start: 01-23-2023 End: 01-23-2023 Patient encounter procedure 01/23/2023 10:30 AM EDT Anticoag visit [facility] [address] [place] [address] [facility] Start: 01-16-2023 End: 01-16-2023 Patient encounter procedure 01/16/2023 8:15 AM EDT Anticoag visit [facility] [address] [place] [address] [facility] Start: 01-09-2023 End: 01-09-2023 Patient encounter procedure 01/09/2023 8:00 AM EDT Anticoag visit [facility] [address] [place] [address] [facility] [facility] Start: 01-05-2023 Depression screening using PHQ-9 (Patient Health Questionnaire 9) score Depression Screening (PHQ-2/9) [facility] Start: 01-05-2023 BEKAH-7 Screening BEKAH-7 Screening [facility] Start: 01-02-2023 End: 01-02-2023 Patient encounter procedure 01/02/2023 7:30 AM EDT Anticoag visit [facility] [address] [facility] [address] [address] [place] [address] [facility] Start: 12-26-2022 End: 12-26-2022 Patient encounter procedure 12/26/2022 8:15 AM EDT Anticoag visit [facility] [address] [place] [address] [facility] Start: 12-19-2022 End: 12-19-2022 Patient encounter procedure 12/19/2022 7:45 AM EDT Anticoag visit [facility] [address] [place] [address] Lita Gu MD [address] [place] [address] [facility] Start: 12-12-2022 End: 12-12-2022 Patient encounter procedure 12/12/2022 9:30 AM EDT Office Visit [facility] [address] [place] [address] Lita Gu MD [address] [facility] [place] [place] [address] [facility] Start: 12-07-2022 Screening for malignant neoplasm of breast Mammogram [facility] Start: 12-01-2022 End: 12-01-2022 Clinical Support 12/01/2022 8:00 AM EDT Clinical Support [facility] [address] [place] [address] [facility] Start: 11-28-2022 End: 11-28-2022 Patient encounter procedure 11/28/2022 4:15 PM EDT Office Visit [facility] [address] [place] [address] Ying Quispe DO [address] [place] [address] [facility] Start: 11-24-2022 End: 11-24-2022 Patient encounter procedure 11/24/2022 Office Visit Primary Care Ying Quispe DO [address] [place] [address] [facility] Start: 11-21-2022 End: 11-21-2022 Patient encounter procedure 11/21/2022 Office Visit Primary Care Ying Quispe DO [address] [place] [address] [facility] Start: 11-19-2022 Lipid panel Lipid Panel [facility] Start: 11-18-2022 History and physical examination, annual for health maintenance Wellness Visit [facility] Start: 11-08-2022 End: 10-26-[address] Lymph Node CT Biopsy Lymph Node Imaging Routine History of deep venous thrombosis Axillary lymphadenopathy Expected: 11/08/2022, Expires: 10/26/2023 [facility] Work Phone: Comment on above: Expected: 11/08/2022, Expires: Start: 10-25-2022 End: 10-25-2022 Patient encounter procedure 10/25/2022 10:45 AM EDT Office Visit [facility] [address] [place] [address] [address] [place] [address] Lita Gu MD [address] [place] [address] [facility] Start: 10-18-2022 End: 09-27-2023 MR Brain With And Without Contrast MR Brain With And Without Contrast Imaging Routine History of deep venous thrombosis Current smoker Transaminitis Factor V Leiden mutation (HCC) Lymphadenopathy Decreased muscle strength Lung nodule seen on imaging study Expected: 10/18/2022 (Approximate), Expires: 09/27/2023 [facility] Comment on above: Expected: 10/18/2022 (Approximate), Expi res: 09/27/2023 Start: 10-18-2022 End: 09-28-2023 PET Tumor Imaging With CT Skull To Thigh PET Tumor Imaging With CT Skull To Thigh Imaging Routine History of deep venous thrombosis Current smoker Transaminitis Factor V Leiden mutation (HCC) Lymphadenopathy Decreased muscle strength Lung nodule seen on imaging study Expected: 10/18/2022 (Approximate), Expires: 09/28/2023 [facility] Work Phone: Comment on above: Expected: 10/18/2022 (Approximate), Expi res: 09/28/2023 Start: 09-27-2022 End: 09-27-2022 Patient encounter procedure [facility] Start: 09-20-2022 End: 09-20-2022 Patient encounter procedure 09/20/2022 11:30 AM EDT Office Visit [facility] [address] [place] [address] Ying Quispe DO [address] [place] [address] [facility] Start: 09-15-2022 End: 09-15-2022 Patient encounter procedure 09/15/2022 Appointment Radiology Lita Gu MD [address] [place] [address] [facility] CT Scan Start: 09-14-2022 End: 07-07-2023 Complete blood count with white cell differential, manual CBC and Differential Lab Routine Acute deep vein thrombosis (DVT) of axillary vein of left upper extremity (HCC) Current smoker Cigarette smoker Screening for malignant neoplasm of respiratory organ Expected: 09/14/2022 (Approximate), Expires: 07/07/2023 [facility] Work Phone: Comment on above: Expected: 09/14/2022 (Approximate), Expi res: 07/07/2023 Start: 09-14-2022 End: 07-07-2023 Comprehensive metabolic 2000 panel - Serum or Plasma Comprehensive Metabolic Panel Lab Routine Acute deep vein thrombosis (DVT) of axillary vein of left upper extremity (HCC) Current smoker Cigarette smoker Screening for malignant neoplasm of respiratory organ Expected: 09/14/2022 (Approximate), Expires: 07/07/2023 [facility] Comment on above: Expected: 09/14/2022 (Approximate), Expi res: 07/07/2023 Start: 09-14-2022 End: 07-06-2023 D-dimer assay, quantitative D-Dimer, Quantitative Lab Routine Acute deep vein thrombosis (DVT) of axillary vein of left upper extremity (HCC) Current smoker Cigarette smoker Screening for malignant neoplasm of respiratory organ Expected: 09/14/2022 (Approximate), Expires: 07/06/2023 [facility] Comment on above: Expected: 09/14/2022 (Approximate), Expi res: 07/06/2023 Start: 09-14-2022 End: 07-06-2023 Low dose computed tomography of thorax CT Lung Cancer Screening Imaging Routine Acute deep vein thrombosis (DVT) of axillary vein of left upper extremity (HCC) Current smoker Cigarette smoker Screening for malignant neoplasm of respiratory organ Expected: 09/14/2022, Expires: 07/06/2023 [facility] Comment on above: Expected: 09/14/2022, Expires: Start: 09-12-2022 End: 09-12-2022 Patient encounter procedure 09/12/2022 Office Visit Primary Care Ying Quispe DO [address] [place] [address] [facility] Start: 2022 Respiratory Syncytial Virus Immunization: Risk, 60-74 Risk, or 75+ (1 - Risk 60-74 years 1-dose series) Respiratory Syncytial Virus Immunization: Risk, 60-74 Risk, or 75+ (1 - Risk 60-74 years 1-dose series) [facility] Start: 06-13-2022 End: 06-13-2022 Patient encounter procedure 06/13/2022 Office Visit Primary Care Ying Quispe DO [address] [place] [address] [facility] Start: 05-12-2022 Depression screening using PHQ-9 (Patient Health Questionnaire 9) score Depression Screening (PHQ-2/9) [facility] Start: 05-12-2022 BEKAH-7 Screening BEKAH-7 Screening [facility] Start: 01-27-2022 Influenza vaccination [facility] Start: 01-13-2022 End: 01-13-2022 Patient encounter procedure 01/13/2022 Office Visit Podiatry Yfn Puckett Jr., [place] [address] [facility] Start: 12-07-2021 Subsequent hospital visit by physician 12/07/2021 Hospital Encounter Radiology Ying Quispe DO [address] [place] [address] [facility] Start: 12-07-2021 End: 12-07-2021 Patient encounter procedure 12/07/2021 Appointment Radiology Ying Quispe DO [address] [place] [address] [facility] Start: 11-25-2021 End: 11-25-2021 Patient encounter procedure 11/25/2021 Office Visit Podiatry Yfn Puckett Jr., YELITZA [address] [place] [address] [facility] Start: 11-24-2021 End: 11-24-2021 Patient encounter procedure 11/24/2021 Office Visit Primary Care Ying Quispe, DO [address] [place] [address] [facility] Start: 11-18-2021 End: 11-18-2021 Patient encounter procedure 11/18/2021 Office Visit Primary Care Ying Quispe, DO [address] [place] [address] [facility] Start: 11-11-2021 End: 11-11-2021 Patient encounter procedure 11/11/2021 Office Visit Podiatry Yfn Puckett Jr., YELITZA [address] [place] [address] [facility] Physician [facility] Start: 09-29-2021 Depression screening using PHQ-9 (Patient Health Questionnaire 9) score Depression Screening (PHQ9) [facility] Start: 07-22-2021 End: 07-22-2021 Patient encounter procedure 07/22/2021 Office Visit Podiatry Yfn Puckett Jr., YELITZA [address] [place] [address] [facility] Physician [facility] Start: 06-21-2021 End: 06-21-2021 Patient encounter procedure 06/21/2021 Office Visit Primary Care Ying Quispe [address] [place] [address] [facility] Start: 06-21-2021 BEKAH-7 Screening BEKAH-7 Screening [facility] Start: 04-15-2021 End: 04-15-2021 Patient encounter procedure 04/15/2021 Office Visit Primary Care Bambi Huynh MD [address] [place] [address] [phone] [facility] Start: 01-27-2021 Influenza vaccination [facility] Start: 09-29-2020 End: 09-29-2020 Patient encounter procedure 09/29/2020 Office Visit Primary Care Bambi Huynh MD [address] [place] [address] [phone] [facility] Physician [facility] Start: 01-28-2020 Influenza vaccination given Sequential Influenza Vaccine (#1) [facility] Start: 01-24-2020 History and physical examination, annual for health maintenance Wellness Visit [facility] Comment on above: Postponed from 1965 (Patient Does Not Have Time) Start: 01-24-2020 Tetanus vaccination [facility] Comment on above: Postponed from 1962 (Patient Does Not Have Time) Start: 01-15-2020 Administration of herpes zoster vaccine Zoster Vaccines (1 of 2) [facility] Comment on above: Postponed from 2012 (Treatment Not Available) Start: 01-15-2020 Depression screening using PHQ-9 (Patient Health Questionnaire 9) score DEPRESSION SCREENING (PHQ9) [facility] Start: 12-21-2019 Lipid panel Lipid Panel [facility] Start: 11-26-2019 Influenza vaccination given SEQUENTIAL INFLUENZA VACCINE (#1) [facility] Comment on above: Postponed from 01/27/2019 (Patient Refus ed) Start: 09-23-2019 End: 09-23-2019 Office Visit 09/23/2019 Office Visit Primary Care Bambi Huynh MD [address] [address] [phone] [facility] Physician [facility] Start: 07-26-2019 Protein mass conc Mammogram [facility] Comment on above: Postponed from 07/04/2017 (Patient Does Not Have Time) Start: 07-26-2019 Screening for osteoporosis DEXA SCAN [facility] Comment on above: Postponed from 1962 (Patient Does Not Have Time) Start: 07-26-2019 Screening mammography Mammogram [facility] Comment on above: Postponed from 07/04/2017 (Patient Does Not Have Time) Start: 07-25-2019 Screening for malignant neoplasm of cervix PAP SMEAR [facility] Comment on above: Postponed from 1962 (Patient Does Not Have Time) Start: 05-01-2019 End: 05-01-2019 Treatment 05/01/2019 Treatment Bambi Madrid MD [address] [place] [address] [phone] Fuad Pisano, PT [facility] Start: 04-29-2019 End: 04-29-2019 Treatment 04/29/2019 Treatment Bambi Madrid MD [address] [place] [address] [phone] Tisha Do [facility] Start: 04-24-2019 End: 04-24-2019 Treatment 04/24/2019 Treatment Bambi Madrid MD [address] [place] [address] Soo Walls [facility] Start: 04-24-2019 End: 04-24-2019 Treatment 04/24/2019 Treatment Bambi Madrid MD [address] [place] [address] [phone] Oh Crockett [facility] Start: 04-22-2019 End: 04-22-2019 Treatment 04/22/2019 Treatment Bamib Madrid MD [address] [place] [address] Tisha Do [facility] Start: 04-17-2019 End: 04-17-2019 Treatment 04/17/2019 Treatment Bambi Madrid MD [address] [place] [address] Leanne Gomes [facility] Start: 04-15-2019 End: 04-15-2019 Treatment 04/15/2019 Treatment Rehabilitation Bambi Huynh MD [address] [place] [address] [phone] Tisha Do [facility] Start: 04-10-2019 End: 04-10-2019 Treatment 04/10/2019 Treatment Rehabilitation Bambi Huynh MD [address] [place] [address] [phone] Leanne Gomes [facility] Start: 03-26-2019 End: 03-26-2019 Office Visit 03/26/2019 Office Visit Primary Care Bambi Huynh MD [address] [place] [address] [phone] [facility] Physician [facility] Start: 01-27-2019 Influenza vaccination given SEQUENTIAL INFLUENZA VACCINE (#1) [facility] Start: 01-15-2019 End: 01-15-2019 Office Visit 01/15/2019 Office Visit Primary Care Bambi Huynh MD [address] [place] [address] [phone] [facility] Physician [facility] Start: 10-30-2018 End: 10-30-2018 Office Visit 10/30/2018 Office Visit Sports Medicine Mendez Roy MD [address] [place], [place] [id number] [facility] Start: 09-06-2018 History and physical examination, annual for health maintenance ANNUAL EXAM [facility] Comment on above: Postponed from 1962 (Patient Does Not Have Time) Start: 01-01-2018 End: 01-01-2018 Ambulatory 01/01/2018 Office Visit Primary Care Bambi Huynh MD [address] [place] [address] [phone] [facility] Physician [facility] Start: 07-04-2017 Screening for malignant neoplasm of breast Mammogram [facility] Start: 07-04-2017 Screening mammography MAMMOGRAM [facility] Work Phone: Start: 2012 Administration of herpes zoster vaccine Zoster Vaccines (1 of 2) [facility] Start: 2012 Screening for malignant neoplasm of colon [facility] Start: 1992 Screening for malignant neoplasm of cervix [facility] Start: 1983 Screening for malignant neoplasm of cervix Pap Smear [facility] Start: 1981 Pneumococcal Vaccine: Age 50+ (1 of 2 - PCV) Pneumococcal Vaccine: Age 50+ (1 of 2 - PCV) [facility] Start: 1981 Pneumococcal Vaccine: Ped or At-Risk (1 of 2 - PCV) Pneumococcal Vaccine: Ped or At-Risk (1 of 2 - PCV) [facility] Start: 1978 COVID-19 Vaccine (1 of 2) COVID-19 Vaccine (1 of 2) [facility] Start: 1978 COVID-19 Vaccine (1) COVID-19 Vaccine (1) [facility] Start: 1977 HIV screening HIV Screening [facility] Start: 1974 Adolescent depression screening assessment Depression Screening (PHQ9) [facility] Start: 1974 COVID-19 Vaccine (1) COVID-19 Vaccine (1) [facility] Start: 1974 Depression screening using PHQ-9 (Patient Health Questionnaire 9) score Depression Screening (PHQ9) [facility] Start: 1972 Urine screening for protein Urine (micro)albumin/creatinine ratio - Kidney Disease [facility] Start: 1968 Pneumococcal Vaccine: Ped or At-Risk (1 - PCV) Pneumococcal Vaccine: Ped or At-Risk (1 - PCV) [facility] Start: 1968 Pneumococcal Vaccine: Ped or At-Risk (1 of 2 - PCV) Pneumococcal Vaccine: Ped or At-Risk (1 of 2 - PCV) [facility] Start: 1968 Pneumococcal Vaccine: Ped or At-Risk (1 of 2 - PPSV23) Pneumococcal Vaccine: Ped or At-Risk (1 of 2 - PPSV23) [facility] Start: 1967 COVID-19 Vaccine (#1) COVID-19 Vaccine (#1) [facility] Start: 1967 COVID-19 Vaccine (1) COVID-19 Vaccine (1) [facility] Start: 1965 History and physical examination, annual for health maintenance Wellness Visit [facility] Start: 01-14-1963 COVID-19 Vaccine (#1) COVID-19 Vaccine (#1) [facility] Start: 1962 HEPATITIS C SCREENING HEPATITIS C SCREENING [facility] Work Phone: Start: 1962 Protein mass conc COLONOSCOPY [facility] Start: 1962 Screening colonoscopy COLONOSCOPY [facility] Work Phone: Start: 1962 Screening for malignant neoplasm of cervix PAP SMEAR [facility] Start: 1962 Screening for malignant neoplasm of colon [facility] Start: 1962 Screening for osteoporosis Dexa Scan [facility] Start: 1962 Tetanus vaccination [facility] Amylase [Enzymatic activity/volume] in Body fluid [facility] Amylase [Enzymatic activity/volume] in Body fluid [facility] End: 11-18-2022 Bone density scan XR Bone Density DEXA Axial Imaging Routine Post-menopause 1 Occurrences starting 11/18/2021 until 11/18/2022 [facility] Comment on above: 1 Occurrences starting 11/18/2021 until 11/18/2022 Cologuard Cologuard Lab Ro utine Colon cancer screening Ordered: 11/18/2021 [facility] Comment on above: Ordered: 11/18/2021 Complete blood count with white cell differential, automated CBC Auto Differential Lab Panel Routine Orthostatic hypotension Ordered: 11/23/2023 [facility] Comment on above: Ordered: 11/23/2023 End: 11-18-2022 Complete blood count with white cell differential, manual CBC and Differential Lab Routine Routine general medical examination at a health care facility 1 Occurrences starting 11/18/2021 until 11/18/2022 [facility] Comment on above: 1 Occurrences starting 11/18/2021 until 11/18/2022 End: 12-13-2023 Complete blood count with white cell differential, manual CBC and Differential Lab Routine History of deep venous thrombosis Reactive lymphadenopathy Factor V Leiden mutation (HCC) Every 4 mo for 2 Occurrences starting 12/12/2022 until 12/13/2023, 1 completed [facility] Work Phone: Comment on above: Every 4 mo for 2 Occurrences starting until 12/13/2023, 1 completed End: 11-22-2024 Complete blood count with white cell differential, manual CBC and Differential Lab Routine Orthostatic hypotension 1 Occurrences starting 11/23/2023 until 11/22/2024 [facility] Comment on above: 1 Occurrences starting 11/23/2023 until 11/22/2024 End: 11-29-2023 Comprehensive metabolic 2000 panel - Serum or Plasma Comprehensive Metabolic Panel Lab Routine Familial hypercholesteremia 1 Occurrences starting 11/28/2022 until 11/29/2023 [facility] Work Phone: Comment on above: 1 Occurrences starting 11/28/2022 until 11/29/2023 End: 01-26-2024 Comprehensive metabolic 2000 panel - Serum or Plasma Comprehensive Metabolic Panel Lab Routine Hypothyroidism, unspecified type 1 Occurrences starting 01/25/2023 until 01/26/2024 [facility] Work Phone: Comment on above: 1 Occurrences starting 01/25/2023 until 01/26/2024 End: 11-22-2024 Comprehensive metabolic 2000 panel - Serum or Plasma Comprehensive Metabolic Panel Lab Routine Orthostatic hypotension 1 Occurrences starting 11/23/2023 until 11/22/2024 [facility] Work Phone: Comment on above: 1 Occurrences starting 11/23/2023 until 11/22/2024 End: 12-05-2020 COVID-19, Molecular COVID-19, Molecular Microbiology Routine Close Exposure To Covid-19 Virus Cough 1 Occurrences starting 12/06/2019 until 12/05/2020 [facility] Comment on above: 1 Occurrences starting 12/06/2019 until 12/05/2020 End: 01-04-2025 CTA Chest vessels and Abdominal vessels and Pelvis vessels W contrast IV CT Angiogram Chest Abdomen Pelvis Imaging Routine 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) Postoperative leak 1 Occurrences starting 01/05/2024 until 01/04/2025 [facility] Work Phone: Comment on above: 1 Occurrences starting 01/05/2024 until 01/04/2025 End: 05-23-2025 CTA Chest vessels and Abdominal vessels and Pelvis vessels WO and W contrast IV CT Angiogram Abdomen Pelvis Imaging Routine Abdominal aortic aneurysm (AAA) without rupture, unspecified part (HCC) 1 Occurrences starting 05/23/2024 until 05/23/2025 [facility] Work Phone: Comment on above: 1 Occurrences starting 05/23/2024 until 05/23/2025 Cytology report of B richie fluid Cyto stain [facility] Dir rpr ruptd aneury sm abdominal aorta ANEURYSM REPAIR ABDOMINAL AORTIC (AAA) Juxtarenal abdominal aortic aneurysm, ruptured (HCC) [facility] Doppler ultrasonogra phy of artery of lower limb Segmental Doppler Lower Extremity Arterial Vascular Ultrasound Routine Right-sided low back pain with right-sided sciatica, unspecified chronicity Ordered: 07/04/2023 [employer] Work Phone: Comment on above: Ordered: 07/04/2023 End: 06-06-2023 Erythrocyte sedimentation rate Sedimentation Rate Lab Routine Raynaud's phenomenon without gangrene 1 Occurrences starting 06/06/2022 until 06/06/2023 [facility] Work Phone: Comment on above: 1 Occurrences starting 06/06/2022 until 06/06/2023 Factor II (prothromb in) 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) Lab Routine 06/11/2022 4:13 AM EST [facility] Factor V Leiden genotype Factor V (F5) Leiden Mutation ([id number]) Lab Routine 06/11/2022 4:13 AM EST [facility] Work Phone: End: 11-18-2022 Hemoglobin A1c/Hemoglobin.total in Blood Hemoglobin A1c Lab Routine Routine general medical examination at a health care facility 1 Occurrences starting 11/18/2021 until 11/18/2022 [facility] Comment on above: 1 Occurrences starting 11/18/2021 until 11/18/2022 End: 07-03-2018 Hepatitis C Antibody Hepatitis C Antibody Routine Encounter For Hepatitis C Screening Test For Low Risk Patient 1 Occurrences starting 07/03/2017 until 07/03/2018 [facility] Work Phone: Lactate dehydrogenas e measurement [facility] End: 2019 Lipid 1996 panel Lipid Panel Routine Hyperlipidemia, unspecified hyperlipidemia type 1 Occurrences starting 2018 until 2019 [facility] Comment on above: 1 Occurrences starting 2018 until 2019 End: 11-18-2022 Lipid 1996 panel - Serum or Plasma Lipid Panel Lab Routine Routine general medical examination at a health care facility 1 Occurrences starting 11/18/2021 until 11/18/2022 [facility] Comment on above: 1 Occurrences starting 11/18/2021 until 11/18/2022 End: 01-26-2024 Lipid 1996 panel - Serum or Plasma Lipid Panel Lab Routine Familial hypercholesteremia 1 Occurrences starting 01/25/2023 until 01/26/2024 [facility] Comment on above: 1 Occurrences starting 01/25/2023 until 01/26/2024 End: 07-03-2018 Lipid panel Lipid Panel Routine Hyperlipidemia, unspecified hyperlipidemia type 1 Occurrences starting 07/03/2017 until 07/03/2018 [facility] Work Phone: End: 01-18-2023 MG Breast - bilateral Screening Mammography Screening Jose Bilateral Imaging Routine Encounter for screening mammogram for malignant neoplasm of breast 1 Occurrences starting 11/18/2021 until 01/18/2023 [facility] Work Phone: Comment on above: 1 Occurrences starting 11/18/2021 until 01/18/2023 End: 08-23-2024 MR Lumbar spine WO contrast MR Lumbar Spine Without Contrast Imaging Routine Lumbosacral radiculopathy Weakness of right lower extremity Paresthesias 1 Occurrences starting 08/24/2023 until 08/23/2024 [facility] Work Phone: Comment on above: 1 Occurrences starting 08/24/2023 until 08/23/2024 Patient Education [facility] Work Phone: Patient referral [facility] Work Phone: pH of Body fluid [facility] pH of Body fluid [facility] Procedure on tissue specimen Tissue Exam STAT Once for 1 Occurrences starting 09/14/2018 [facility] Comment on above: Once for 1 Occurrences starting 09/15/19 End: 09-28-2021 Thyrotropin [Units/volume] in Serum or Plasma TSH Lab Routine Hypothyroidism, unspecified type 1 Occurrences starting 09/28/2020 until 09/28/2021 [facility] Comment on above: 1 Occurrences starting 09/28/2020 until 09/28/2021 End: 06-06-2023 Thyrotropin [Units/volume] in Serum or Plasma TSH with Reflex Free T4 Lab Routine Hypothyroidism, unspecified type 1 Occurrences starting 06/06/2022 until 06/06/2023 [facility] Comment on above: 1 Occurrences starting 06/06/2022 until 06/06/2023 End: 01-26-2024 Thyrotropin [Units/volume] in Serum or Plasma TSH with Reflex Free T4 Lab Routine Hypothyroidism, unspecified type 1 Occurrences starting 01/25/2023 until 01/26/2024 [facility] Comment on above: 1 Occurrences starting 01/25/2023 until 01/26/2024 End: 04-24-2024 Thyrotropin [Units/volume] in Serum or Plasma TSH with Reflex Free T4 Lab Routine Hypothyroidism, unspecified type 1 Occurrences starting 04/24/2023 until 04/24/2024 [facility] Work Phone: Comment on above: 1 Occurrences starting 04/24/2023 until 04/24/2024 End: 2019 Thyrotropin Qn TSH Routine Hypothyroidism, unspecified type 1 Occurrences starting 2018 until 2019 [facility] Comment on above: 1 Occurrences starting 2018 until 2019 Total protein measurement [facility] End: 01-15-2020 TSH Qn TSH Lab Routine Hypothyroidism, unspecified type 1 Occurrences starting 01/14/2019 until 01/15/2020 [facility] Comment on above: 1 Occurrences starting 01/14/2019 until 01/15/2020 End: 07-03-2018 TSH with Reflex Free T4 TSH with Reflex Free T4 Routine Hypothyroidism, unspecified type 1 Occurrences starting 07/03/2017 until 07/03/2018 [facility] Work Phone: End: 02-25-2025 Ultrasound renal artery stenosis hypertension limited Ultrasound renal artery stenosis hypertension limited Vascular Ultrasound Routine Renal insufficiency 1 Occurrences starting 12/26/2023 until 02/25/2025 [facility] Work Phone: Comment on above: 1 Occurrences starting 12/26/2023 until 02/25/2025 End: 02-25-2025 US Abdominal Aortic Aneurysm Duplex (AAA) US Abdominal Aortic Aneurysm Duplex (AAA) Vascular Ultrasound Routine 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) 1 Occurrences starting 12/26/2023 until 02/25/2025 [facility] Comment on above: 1 Occurrences starting 12/26/2023 until 02/25/2025 End: 01-21-2025 US Doppler ankle/brachial index US Doppler ankle/brachial index Vascular Ultrasound Routine PVD (peripheral vascular disease) (HCC) Ischemia of toe 1 Occurrences starting 11/22/2023 until 01/21/2025 [facility] Work Phone: Comment on above: 1 Occurrences starting 11/22/2023 until 01/21/2025 Immunizations Immunization Date Immunization Notes Care Provider Naveed logan 10-20-2023 Pfizer SARS-CoV-2 Vaccination 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 05-29-2024 Private Health Insurance [id number] 02-29-2024 Self-pay 05-29-2021 Managed Care HMO (unspecified) [facility] HMO/CHOICE PLUS/CARTINA/CATRINA PLUS [id number] 05-29-2021 Unknown [id number] 05-29-2019 Unknown [id number] 05-29-[address] HANGE O [facility] [employer] [id number] 05/29/2019-Present [id number] 1.2.840.687353.1.13.385. 2.7.3.925238.315 05-29-2019 Unknown 1.2.840.162204. 1.13.385. 2.7.3.941559.315 03-29-2018 Unknown [id number] 1.2.840.450436.1.13.385. 2.7.3.088209.315 03-29-2017 Private Health Insurance [id number] 2.16.840.1.205895.3.249. 13 06-29-2016 Unknown [id number] 1960 Unknown [id number] 2.16.840.1.245951.3.579. 2.903 1960 Unknown [id number] 2.16.840.1.462597.3.579. 2.903 1960 Unknown [id number] 2.16.840.1.680597.3.579. 2.903 1962 Unknown [id number] 2.16.840.1.374476.3.579. 2.903 1962 Unknown [id number] 2.16.840.1.924114.3.579. 2.903 1962 Unknown [id number] 2.16.840.1.336043.3.579. 2.900 1960 Unknown [id number] 2.16.840.1.095752.3.579. 2.900 1962 Unknown [id number] 2.16.840.1.562219.3.579. 2.900 1962 Unknown [id number] 2.16.840.1.079788.3.579. 2.900 1962 Unknown [id number] 2.16.840.1.868000.3.579. 2.900 1962 Unknown [id number] 2.16.840.1.803667.3.579. 2.903 1962 Unknown [id number] 2.16.840.1.875123.3.579. 2.903 1962 Unknown [id number] 2.16.840.1.087650.3.579. 2.903 1962 Unknown [id number] 2.16.840.1.016579.3.579. 2.903 1962 Unknown [id number] 2.16.840.1.665237.3.579. 2.90 1962 Unknown [id number] 2.16.840.1.320301.3.579. 2.903 1962 Unknown [id number] 2.16.840.1.668012.3.579. 2.90 1962 Unknown [id number] 2.16.840.1.901618.3.579. 2.903 1962 Unknown [id number] 2.16.840.1.934833.3.579. 2.90 1962 Unknown [id number] 2.16.840.1.730901.3.579. 2.903 1962 Unknown [id number] 2.16.840.1.234460.3.579. 2.90 1962 Unknown [id number] 2.16.840.1.155061.3.579. 2.903 1962 Unknown [id number] 2.16.840.1.569594.3.579. 2.90 1962 Unknown [id number] 2.16.840.1.251517.3.579. 2.3 1962 Unknown [id number] 2.16.840.1.957644.3.579. 2. 1962 Unknown [id number] 2.16.840.1.032604.3.579. 2 1962 Unknown [id number] 2.16.840.1.317983.3.579. 2 1962 Unknown [id number] 2.16.840.1.700450.3.579. 2 1962 Unknown [id number] 2.16.840.1.294956.3.579. 2 1962 Unknown [id number] 2.16.840.1.952276.3.579. 2 1962 Unknown [id number] 2.16.840.1.072229.3.579. 2 1962 Unknown [id number] 2.16.840.1.039881.3.579. 2 1962 Unknown [id number] 2.16.840.1.777563.3.579. 2 1962 Unknown [id number] 2.16.840.1.891991.3.579. 2 1962 Unknown [id number] 2.16.840.1.430573.3.579. 2 1962 Unknown [id number] 2.16.840.1.644731.3.579. 2 1962 Unknown [id number] 2.16.840.1.215032.3.579. 2 1962 Unknown [id number] 2.16.840.1.176601.3.579. 2. 1962 Unknown [id number] 2.16.840.1.403624.3.579. 21963 Unknown [id number] 2.840.1.412721.3.579. 2.903 1962 Unknown [id number] 2.840.1.780858.3.579. 2.903 1962 Unknown [id number] 2.840.1.238197.3.579. 2.903 1962 Unknown [id number] 2.840.1.612594.3.579. 2.903 1962 Unknown [id number] 2.840.1.008098.3.579. 2.903 Private Health Insurance [id number] 2.840.1.575366.3.249. 13 Unknown [id number] 2.840.1.763076.3.579. 2.462 Unknown [id number] 2.840.1.590364.3.579. 2.462 Unknown [id number] 2.840.1.793031.3.579. 2.462 Unknown [id number] 2.840.1.817821.3.579. 2.462 Unknown [id number] 2.840.1.732933.3.579. 2.462 Unknown [id number] 2.840.1.305976.3.579. 2.462 Unknown [id number] 2.840.1.747921.3.579. 2.462 Unknown [id number] 2.840.1.630248.3.579. 2.462 Unknown [id number] 2.840.1.689914.3.579. 2.462 Unknown [id number] 2.840.1.656887.3.579. 2.462 Unknown [id number] 2.840.1.946302.3.579. 2.462 Unknown [id number] 2.840.1.588468.3.579. 2.462 Unknown [id number] 2.16.840.1.111521.3.579. 2.462 Unknown [id number] 2.16.840.1.486074.3.579. 2.462 Unknown [id number] 2.16.840.1.928363.3.579. 2.462 Unknown [id number] 2.16.840.1.135845.3.579. 2.462 Unknown [id number] 2.16.840.1.920407.3.579. 2.462 Unknown [id number] 2.16.840.1.556080.3.579. 2.462 Unknown [id number] 2.16.840.1.652934.3.579. 2.462 Unknown [id number] 2.16.840.1.477159.3.579. 2.462 Unknown [id number] 2.16.840.1.996070.3.579. 2.462 Unknown [id number] 2.16.840.1.826107.3.579. 2.462 Unknown [id number] 2.16.840.1.573599.3.579. 2.462 Unknown [id number] 2.16.840.1.855823.3.579. 2.462 Unknown [id number] 2.16.840.1.660440.3.579. 2.462 Unknown [id number] 2.16.840.1.646756.3.579. 2.462 Unknown [id number] 2.16.840.1.530571.3.579. 2.462 Unknown [id number] 2.16.840.1.580368.3.579. 2.462 Unknown [id number] 2.16.840.1.578640.3.579. 2.462 Unknown [id number] 2.16.840.1.121364.3.579. 2.462 Unknown [id number] 2.16.840.1.327789.3.579. 2.462 Unknown [id number] 2.16.840.1.704092.3.579. 2.462 Unknown [id number] 2.16.840.1.180609.3.579. 2.462 Unknown [id number] 2.16.840.1.050346.3.579. 2.462 Unknown [id number] 2.16.840.1.282601.3.579. 2.462 Unknown [id number] 2.16.840.1.461563.3.579. 2.462 Unknown [id number] 2.16.840.1.618822.3.579. 2.462 Unknown [id number] 2.16.840.1.559167.3.579. 2.462 Unknown [id number] 2.16.840.1.413632.3.579. 2.462 Unknown [id number] 2.16.840.1.957804.3.579. 2.462 Unknown [id number] 2.16.840.1.184633.3.579. 2.462 Unknown [id number] 2.16.840.1.644886.3.579. 2.462 Unknown [id number] 2.16.840.1.663601.3.579. 2.462 Unknown [id number] 2.16.840.1.402267.3.579. 2.462 Unknown [id number] 2.16.840.1.615654.3.579. 2.462 Unknown [id number] 2.16.840.1.741459.3.579. 2.462 Unknown [id number] 2.16.840.1.604869.3.579. 2.462 Unknown [id number] 2.16.840.1.632378.3.579. 2.462 Unknown [id number] 2.16.840.1.884397.3.579. 2.462 Unknown [id number] 2.16.840.1.970835.3.579. 2.462 Unknown [id number] 2.16.840.1.301652.3.579. 2.462 Unknown [id number] 2.16.840.1.112190.3.579. 2.462 Unknown [id number] 2.16.840.1.518327.3.579. 2.462 Unknown [id number] 2.16.840.1.602866.3.579. 2.462 Unknown [id number] 2.16.840.1.042013.3.579. 2.462 Unknown [id number] 2.16.840.1.805780.3.579. 2.462 Unknown [id number] 2.16.840.1.951316.3.579. 2.462 Unknown [id number] 2.16.840.1.272343.3.579. 2.462 Unknown [id number] 2.16.840.1.496167.3.579. 2.462 Unknown [id number] 2.16.840.1.522859.3.579. 2.462 Unknown [id number] 2.16.840.1.234831.3.579. 2.462 Unknown [id number] 2.16.840.1.830693.3.579. 2.462 Unknown 24934816 2.16.840.1.404560.3.579. 2.462 Unknown [id number] 2.16.840.1.622575.3.579. 2.462 Unknown [id number] 2.16.840.1.239840.3.579. 2.462 Unknown 18130073 2.16.840.1.591866.3.579. 2.462 Unknown [id number] 2.16.840.1.082348.3.579. 2.462 Unknown [id number] 2.16.840.1.303633.3.579. 2.462 Unknown 29242711 2.16.840.1.222299.3.579. 2.462 Unknown [id number] 2.16.840.1.996692.3.579. 2.462 Unknown [id number] 2.16.840.1.794391.3.579. 2.462 Unknown [id number] 2.16.840.1.181093.3.579. 2.462 Unknown [id number] 2.16.840.1.785822.3.579. 2.462 Unknown [id number] 2.16.840.1.835244.3.579. 2.462 Unknown [id number] 2.16.840.1.004439.3.579. 2.462 Unknown [id number] 2.16.840.1.956608.3.579. 2.462 Unknown [id number] 2.16.840.1.844974.3.579. 2.462 Social History Date Type Detail Facility Start: 05-05-1996 End: 08-24-2023 Tobacco smoking status PRIS Current every day smoker [facility] Work Phone: Start: 05-05-1996 End: 10-08-2023 History of tobacco use Cigarette Smoker [facility] Work Phone: Start: 09-05-2017 End: 03-12-2024 Cigarettes smoked current (pack per day) - Reported [facility] Start: 1960 Sex Assigned At Not on file [facility] Work Phone: Start: 05-05-2016 Alcohol Comment Occassionally [facility] Start: 09-14-2018 End: 09-15-2024 Tobacco smoking status PRIS Former smoker [facility] Start: 04-17-2019 End: 12-06-2019 Alcohol intake Current drinker of alcohol (finding) [facility] Start: 01-14-2019 End: 09-29-2020 History SDOH Social Connections Get Together 4 [facility] Start: 01-14-2019 End: 05-12-2021 History SDOH Food Worry 1 [facility] Start: 05-05-1996 End: 11-28-2022 Tobacco smoking status NHIS Current some day smoker [facility] Start: 10-25-2021 End: 10-25-2022 Exposure to SARS-CoV-2 (event) Not sure [facility] Start: 12-06-2019 End: 12-26-2023 Tobacco use and exposure Never used [facility] Start: 09-29-2020 History SDOH Financial 5 [facility] Start: 05-12-2021 End: 11-18-2021 History SDOH Social Connections Phone 2 [facility] Start: 04-06-2022 End: 07-29-2024 Alcohol intake Ex-drinker (finding) [facility] Start: 06-13-2022 End: 11-28-2022 Tobacco Comment I am down to 4 cigerettes a day [facility] Start: 05-12-2021 End: 03-12-2024 Social connection and isolation panel [facility] Frequency of Social Gatherings with Friends and Family Not on file [facility] How often to you hav e a drink containing alcohol? Monthly or less [facility] How many standard drinks containing alcohol do [...] the mortgage or rent on time? No [facility] Start: 12-04-2017 Gender identity Identifies as female gender (finding) [facility] Start: 12-04-2017 Sexual orientation Heterosexual (finding) [facility] Start: 05-05-1996 End: 10-08-2023 History of tobacco use Current smoker [facility] Start: 08-14-2024 End: 09-15-2024 Sex Female (finding) [facility] Start: 1960 Sex Assigned At Female [facility] Medical Equipment Procedure Code Equipment Code Equipment Origin al Text Equipment Identifier Dates EGD, with monitored anesthesia care FDA Start: 07-24-2024 EGD, with monitored anesthesia care [id number] FDA Start: 08-03-2024 EGD, with monitored anesthesia [...] FDA Start: 07-24-2024 Closure Perclose Prostyle - [id number] ()[id number])40 [id number], [id number] FDA Start: 10-09-2023 Endograft 26 X 14.5mm 12cm Excluder Comformable Trunk - [id number] ()[id number](17)27 [id number], [id number], _exp FDA Start: 10-09-2023 Endograft 12mm X 12cm Excluder Leg - [id number] ()[id number] [id number])[id number])26 [id number], [id number] FDA Start: 10-10-2023 Comment on above: Description: RIGHT E XTENDER Endograft 12mm X 14cm Contralateral Leg Excluder [id number] - [id number] ()[id number])[id number](17)26 [id number], [id number] FDA Start: 10-10-2023 Comment on above: Description: LEFT CO NTRALATERAL LEG Stent 6 X 39mm 1 35cm Viabahn Vbx - [id number] ()[id number](17)[id number](21)58 [id number], _imp FDA Start: 10-09-2023 Comment on above: Description: LEFT RE NAL Tray 14fr 24cm S plit Cath Iii - [id number] Start: 02-01-2024 Graft 20 X 10mm 40cm Hemashield Bifurcated - [id number] [id number])[id number](17)28 0930(10)[id number](21) [id number], [id number] FDA Start: 01-24-2024 Hemostat 2 X 4in Surgicel Fibrillar - [id number] [id number])[id number](10)10 0XR5, [id number] FDA Start: 01-24-2024 Syringe 10ml Pre-Filled 5pk Bioglue - [id number] Start: 01-24-2024 Goals Date Patient Goal Desired Activity /State Functional Status Date Assessment Result Facility 08-17-2024 Functional status Bedrest [facility] Work Phone: 08-13-2024 Functional status Bedrest [facility] Work Phone: 07-29-2024 Functional status Bedrest [facility] Work Phone: Mental Status Date Assessment Result Facility 08-17-2024 Cognitive function Voice/Name [facility] Work Phone: 08-13-2024 Cognitive function Voice/Name [facility] Work Phone: 07-29-2024 Cognitive function Voice/Name [facility] Work Phone: 07-18-2024 Cognitive function Awake;Drowsy [facility] Work Phone: Clinical Notes 07-29-2020 to 09-15-2024 Sol Huerta RN - 08/23/2024 4:25 PM EDT Note Date & Type Note Facility 09-15-2024 Radiology Diagnostic study note [facility] 08-23-2024 History of Present illness Narrative [...] 12 mo f/u. documented in this encounter [facility] 08-17-2024 Discharge summary Note Date/Time August 17, 2024 9:32am [facility] Medical Records Department [address] [place] [address] Discharge Summary 08/17/24 0922 MR#: [id number] Acct: [id number] Name: SCOTT OBREGON Rep #:[id number] : 1960 64 From: Nikolas Bradley PCP: Millie Massey MD Status:ADM IN Location: [facility] [place] [address] Providers Date of Admission: 08/14/24 Date of [...] had recovery. Patient on dialysis every Monday. Turkey Boner consulted 08/15: She feels much better after dialysis. 08/16: GPC possible Enterococcus 11,000?25. 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 After discussion of benefits/risks [...] Culture - Preliminary Enterococcus faecium GNR lactose brazing machine operator helper 08/14/24 08:50 Blood Culture (Wb) - Anticubital [...] 73.5 H, Lymph % (Auto) 13.4 L, Anderson % (Auto) 7.0, Eos % (Auto) 3.4, [...] bisacodyl 10 mg rectal suppository 10 mg WV DAILY PRN constipation 07/31/24 cholecalciferol (vitamin D3) [...] acetaminophen 650 mg rectal suppository 650 mg WV Q4H PRN fever or pain 08/14/24 dextrose 40 % oral gel (Glucose Gel) 10 g PO Q15M PRN hypoglycemia 08/14/24 mirtazapine 15 mg tablet 15 mg PO QHS 08/14/24 sodium phosphates 19 gram-7 gram/118 mL enema (Enema) 118 ml WV DAILY PRN constipation 08/14/24 IV with Additives [...] 73.5 H, Lymph % (Auto) 13.4 L, Anderson % (Auto) 7.0, Eos % (Auto) 3.4, [...] Culture - Preliminary Enterococcus faecium GNR lactose brazing machine operator helper 08/14/24 08:50 Blood Culture (Wb) - Anticubital [...] tx acetaminophen 650 mg suppository 650 mg WV Q4H PRN (Reason: fever or pain) Enema 19-7 gram/118 mL enema 118 ml WV DAILY PRN (Reason: constipation) Rx Instructions: NEEDED [...] DISTRESS) bisacodyl 10 mg suppository 10 mg WV DAILY PRN (Reason: constipation) glucagon HCl [Glucagon [...] NH/Intermed Care Charges/Coding Visit Charges Inpatient E&M: 26907 Disch Hosp >30min 08/17/24 0932 <Electronically signed by Nikolas Magaña MD> Cosigner Signature (if applicable): CC: Dr. Nikolas Magaña MD; Millie Massey MD~ Signed [facility] Work Phone: 1(753) 921-799103-22-2025 Discharge summary Author Nikolas Magaña [facility] Note Date/Time August 17, 2024 9:2 2am [facility] Medical Records Department [address] [place] [address] Transfer to [facility] MR#: [id number] Acct: [id number] Name: SCOTT OBREGON Rep #:[id number] : [...] had recovery. Patient on dialysis every Monday. Turkey Boner consulted 08/15: She feels much better after dialysis. 08/16: GPC possible Enterococcus 11,000?25. Growing GNR lactose brazing machine operator helper 1000- 10,000 mixed organisms suggestive of contamination [...] advanced directive but has legal power of traffic law attorney for health.. 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 Discharge Plan [...] tx acetaminophen 650 mg suppository 650 mg WV Q4H PRN (Reason: fever or pain) Enema 19-7 gram/118 mL enema 118 ml WV DAILY PRN (Reason: constipation) Rx Instructions: NEEDED [...] DISTRESS) bisacodyl 10 mg suppository 10 mg WV DAILY PRN (Reason: constipation) glucagon HCl [Glucagon [...] Angie Torres MD; Millie Massey MD ~ [facility] Work Phone: 1(424) 507-814003-22-2025 [facility]03-21-2025 Progress note Author Nikolas Magaña [facility] Note Date/Time August 16, 2024 3:3 0pm [facility] Medical Records Department [address] [place] [address] Progress Note - Hospitalist 08/16/24 1522 MR#: [id number] Acct: [id number] Name: SCOTT OBREGON Rep #:[id number] : 1960 64 From: Nikolas Bradley PCP: Millie Massey MD Status:ADM IN Location: [place] [address] Reason for Visit Reason for Visit: Diagnoses [...] 4948 6359 / 6359 Balance -2863 / -7143 -969 / -2768 -5679 / -5679 Lab [...] % (Auto) 69.9, Lymph % (Auto)12.7 L, Anderson % (Auto) 10.5 H, Eos % (Auto) [...] Preliminary GPC Poss Enterococcus sp GNR lactose brazing machine operator helper 08/15/24 09:19 Fluid - Pleural (Lung) Gram Stain - Final 08/15/24 09:19 Fluid - Pleural (Lung) Body Fluid Culture - Preliminary No growth-Final to follow 08/14/24 07:35 Mucosa - Nose SARS-CoV-2, Influenza & RSV (PCR) - Final Physical Exam Narrative Seen and examined. Had detailed discussion with patient's POA Mrs. Monk in person in the room and Ganesh ESPINOSA on the phone inclusions of case sealer, social services director and patient's nurse. Patient not short of [...] had recovery. Patient on dialysis every Monday. Turkey Boner consulted 08/15: She feels much better after dialysis. 08/16: GPC possible Enterococcus 11,000?25. Growing GNR lactose brazing machine operator helper 1000- 10,000 mixed organisms suggestive of contamination [...] advanced directive but has legal power of traffic law attorney for health.. After discussion of benefits/risks [...] Preliminary GPC Poss Enterococcus sp GNR lactose brazing machine operator helper 08/14/24 07:35 Mucosa - Nose SARS-CoV-2, Influenza [...] 76.6 H, Lymph % (Auto) 10.9 L, Anderson % (Auto) 7.0, Eos % (Auto) 2.4, Baso % (Auto) 0.7, Absolute Neuts (auto) 3.2, Absolute Lymphs (auto) 0.45 L, Nucleated RBC % 0, Anisocytosis1+, [place] [address] H, Triglycerides 71, Cholesterol 62, LDL Cholesterol, [...] sisters Sriram and Laisha along with case sealer and social services director and patient's nurse for more than 20 [...] active complex medical conditions), discussion with the nursing home admissions director, review of labs and imaging is 45minutes. Visit Charges Inpatient E&M: 46112 Subs Hosp L3 08/16/24 1530 <Electronically signed by Nikolas Magaña MD> Cosigner Signature (if applicable): CC: ~ Signed [facility] Work Phone: 1(310) 686-675303-20-2025 Consult note Author Meghan Alfaro [facility] Note Date/Time August 15, 2024 9:3 5pm [facility] Medical Records Department [address] [place] [address] Consultation - Nephrology 08/15/24 1138 MR#: [id number] Acct: [id number] Name: SCOTT OBREGON Rep #:[id number] : 1960 64 From: Meghan MOORE PCP: Millie Massey MD Status:ADM IN Location: [place] [id number] Documented by User: OSCAR Hayward 08/15/24 [...] fluid removed. I contacted patient's POA Sriram ([phone]), who also had other sister Geeta (from [place]) in on phone conversation and I updated [...] ESRD who currently dialyzes Monday schedule at [facility] via tunneled hemodialysis catheter who presented back to the emergency room yesterday from [facility] with complaints of worsening shortness of breath. Chestx-ray in the emergency room showing pulmonary edema, bilateral pleural effusions. Patient had dialysis yesterday, only able to tolerate about 1.7L fluid removal. Had thoracentesis with around 500ml fluid removed. Patient alert,drowsy, no complaints today. 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 Gross hematuria Retroperitoneal [...] bisacodyl 10 mg rectal suppository 10 mg WV DAILY PRN constipation 07/31/24 Unknown History cholecalciferol [...] release acetaminophen 650 mg rectal 650 mg WV Q4H PRN fever or pain 08/14/24 Unknown History suppository dextrose 40 % oral gel (Glucose 10 g PO Q15M PRN hypog lycemia 08/14/24 Unknown History Gel) mirtazapine 15 mg tablet 15 mg PO QHS 08/14/24 Unknow n History sodium phosphates 19 gram-7 118 ml WV DAILY PRN consti pation 08/14/24 Unknown History [...] 76.6 H, Lymph % (Auto) 10.9 L, Anderson % (Auto) 7.0, Eos % (Auto) 2.4, Baso % (Auto) 0.7, Absolute Neuts (auto) 3.2, Absolute Lymphs (auto) 0.45 L, Nucleated RBC % 0, [place]isocytosis1+, [place] [address] H, Triglycerides 71, Cholesterol 62, LDL Cholesterol, [...] No evidence of pneumothorax. Reading Location: [facility] Documented by User: Dr. Angie Torres [...] fluid removed. 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) Open abdominal wall wound Factor 5 Leiden mutation, heterozygous Failure to thrive alf (current) use of anticoagulants Gross hematuria Retroperitoneal [...] bisacodyl 10 mg rectal suppository 10 mg WV DAILY PRN constipation 07/31/24 Unknown History cholecalciferol [...] release acetaminophen 650 mg rectal 650 mg WV Q4H PRN fever or pain 08/14/24 Unknown History suppository dextrose 40 % oral gel (Glucose 10 g PO Q15M PRN hypog lycemia 08/14/24 Unknown History Gel) mirtazapine 15 mg tablet 15 mg PO QHS 08/14/24 Unknow n History sodium phosphates 19 gram-7 118 ml WV DAILY PRN consti pation 08/14/24 Unknown History [...] Torres MD> CC: Millie Massey MD~ Signed [facility] Work Phone: 1(594) 766-808803-20-2025 Progress note Author Nikolas Magaña [facility] Note Date/Time August 15, 2024 5:2 2pm [facility] Medical Records Department [address] [place] [address] Progress Note - Hospitalist 08/15/24 0811 MR#: [id number] Acct: [id number] Name: SCOTT OBREGON Rep #:[id number] : 1960 64 From: Nikolas Bradley PCP: Millie Massey MD Status:ADM IN Location: [place] [address] Reason for Visit Reason for Visit: Diagnoses [...] 79.5 H, Lymph % (Auto) 8.6 L, Anderson % (Auto) 6.1, Eos % (Auto) 1.9, [...] Sl. Cloudy, Urine pH 8.0, Ur Specific Cades 1.010, Urine Protein 30 H, Urine Glucose [...] 76.6 H, Lymph % (Auto) 10.9 L, Anderson % (Auto) 7.0, Eos % (Auto) 2.4, Baso % (Auto) 0.7, Absolute Neuts (auto) 3.2, Absolute Lymphs (auto) 0.45 L, Nucleated RBC % 0, Anisocytosis1+, [place] [address] H, Triglycerides 71, Cholesterol 62, LDL Cholesterol, [...] excluded. 2. Bilateral pleural effusions. Reading Location: [facility] Physical Exam Narrative Physical exam General: Alert, [...] had recovery. Patient on dialysis every Monday. Turkey Boner consulted 08/15: She feels much better after [...] advanced directive but has legal power of traffic law attorney for health.. After discussion of benefits/risks [...] Preliminary GPC Poss Enterococcus sp GNR lactose brazing machine operator helper 08/14/24 07:35 Mucosa - Nose SARS-CoV-2, Influenza [...] 76.6 H, Lymph % (Auto) 10.9 L, Anderson % (Auto) 7.0, Eos % (Auto) 2.4, Baso % (Auto) 0.7, Absolute Neuts (auto) 3.2, Absolute Lymphs (auto) 0.45 L, Nucleated RBC % 0, Anisocytosis1+, [place] [address] H, Triglycerides 71, Cholesterol 62, LDL Cholesterol, [...] Glucose 90 Charges/Coding Visit Charges Inpatient E&M: 23441 Subs Hosp L2 08/15/24 1710 <Electronically signed by Nikolas Magaña MD> Cosigner Signature (if applicable): CC: ~ Signed ADDENDUM by Dr. Nikolas Magaña MD on 08/15/24 at 1722 Addendum I had detailed discussion with patient's sister, WILMAR, Mrs. Sriram Alvares. They are not agreeable for hospice care but wanted discussion for palliative care tomorrow at 2 PM. They do not want CPR. 08/15/24 172<Electronically signed by Nikolas Magaña MD> Cosigner Signature (if applicable): cc: ~* Signed [facility] Work Phone: 1(423) 885-127603-20-2025 History of Present illness Narrative* Jennifer Hernandez MA - 08/15/2024 4:19 PM EDT TRC * Casi Topete RN - 08/15/2024 4:04 PM EDT Attempted to call patient regarding Transition of Care following hospitalization d/c on 08/13/24 second attempt at contacting patient. Unsuccessful attempt, left message to return my call on answering machine Left message with RNCM name and phone number requesting call back in order to coordinate transition of care. documented in this [id number] Procedure [facility]03-20-2025 Procedure [facility]03-20-2025 Radiology Diagnostic study [facility]03-19-2025 Discharge summary Author Ciaran Rodrigez [facility] Note Date/Time August 14, 2024 5:1 2pm [facility] Medical Records Department [address] [place] [address] Emergency Department Summary 08/14/24 MR#: [id number] Acct: [id number] Name: SCOTT OBREGON Rep #:[id number] : 1960 64 From: Ciaran Conklin ggett DO PCP: Millie Massey MD Status:ADM IN Location: [place] [address] HPI History of Present Illness Chief Complaint: Shortness of Breath Narrative Narrative: Chief complaint and HPI: Shortness of breath. 64-year-old female with history of ESRD on HD Monday, Monday, Monday, failure to thrive with PEG tube, AAA, factor V Leiden, HLD presents for evaluation of shortness of breath. Patient resides at [facility] [place]. Per their report patient became short of [...] denies true chest pain. Patient's paperwork from [facility] facility states that she is a DNR/DNI [...] intact Psych: Cooperative, appropriate mood and affect [facility] Medical History (Updated 08/14/24 @ 12:[address] 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 Cloudy Urine pH 8.0 Ur Specific Cades 1.010 Urine Protein 30 H Urine Glucose [...] (Auto) Neut % (Auto) Lymph % (Auto) Anderson % (Auto) Eos % (Auto) Baso % [...] Color Urine Clarity Urine pH Ur Specific Cades Urine Protein Urine Glucose (UA) Urine Ketones [...] excluded. 2. Bilateral pleural effusions. Reading Location: [facility] Discharge Plan Disposition Disposition: Acute Care [facility] Discharge Date/Time: 08/14/24 12:48 What to do if you have Problems For any increased pain, shortness of breath, bleeding, nausea or vomiting, chestpain, or any unexpected problems, contact your Primary Care Provider. Call [facility] ([phone]) or report to the closest Emergency Room. Call 911 if necessary. 08/14/24 1712 <Electronically signed by Ciaran Rodrigez DO> Cosigner Signature (if applicable): CC: Millie Massey MD ~ Signed [facility] Work Phone: 1(491) 700-887103-19-2025 History and physical note Author Nikolas Magaña [facility] Note Date/Time August 14, 2024 1:0 0pm [facility] Medical Records Department [address] [place] [address] H&P Exam - Hospitalist 08/14/24 1221 MR#: [id number] Acct: [id number] Name: SCOTT OBREGON Rep #:[id number] : 1960 64 From: Nikolas Bradley PCP: Millie Massey MD Status:ADM IN Location: [place] [address] HPI - General General Date of Admission: 08/14/24 Date of Service: 08/14/24 Chief Complaint: Shortness of breath, could not breathe HPI Narrative SCOTT OBREGON, is a 64 F who was just discharged yesterday to [facility] came to ED feeling shortness of breath, [...] Patient is admittedfor pulmonary edema/anasarca. Need hemodialysis [facility] Medical History (Updated 08/14/24 @ 12:[address] 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 to thrive alf (current) use of anticoagulants Gross hematuria Retroperitoneal [...] bisacodyl 10 mg rectal suppository 10 mg WV DAILY PRN constipation 07/31/24 Unknown History cholecalciferol [...] release acetaminophen 650 mg rectal 650 mg WV Q4H PRN fever or pain 08/14/24 Unknown History suppository dextrose 40 % oral gel (Glucose 10 g PO Q15M PRN hypog lycemia 08/14/24 Unknown History Gel) mirtazapine 15 mg tablet 15 mg PO QHS 08/14/24 Unknow n History sodium phosphates 19 gram-7 118 ml WV DAILY PRN consti pation 08/14/24 Unknown History [...] 79.5 H, Lymph % (Auto) 8.6 L, Anderson % (Auto) 6.1, Eos % (Auto) 1.9, [...] Sl. Cloudy, Urine pH 8.0, Ur Specific Cades 1.010, Urine Protein 30 H, Urine Glucose [...] excluded. 2. Bilateral pleural effusions. Reading Location: [facility] Assessment & Plan Assessment/Plan (1) Pulmonary edema: [...] advanced directive but has legal power of traffic law attorney for health.. After discussion of benefits/risks [...] shock if needed Total time spent in dwiq-ox-dlrl encounter in discussion of advanced directive 17 minutes. Charges/Coding Visit Charges Inpatient E&M: 33420 Init Hosp L3 Procedures Hospitalists Procedures: 13275 Advncd Care Plan 30 Min 08/14/24 1300 <Electronically signed by Nikolas Magaña MD> Cosigner Signature (if applicable): CC: Dr. Nikolas Magaña MD; Millie Massey MD~ Signed [facility] Work Phone: 1(465) 283-685003-19-2025 Radiology Diagnostic study [facility]03-18-2025 [facility]03-03-2025 Note [facility]02-25-2025 Evaluation note* Diagnosis Onset Date Resolution [...] acute July 31 3:42pm Chronic anticoagulation acute [facility] 2024 3:42pm Coffee ground emesis acute 2024 3:42pm Factor V Leiden acute July 3:42pm GI bleed acute July 31 3:42pm Chronic kidney disease with end stage renal 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 chronic July 31, 2024 3:42pm Diarrhea resolved July 31 3:42pm End stage renal disease resolved [facility] 2024 3:42pm Hypoglycemia resolved July 31, 3:42pm Raynaud disease inactive July 3:42pm Anasarca acute August 14 11:52am Pleural effusion acute August 142024 11:52am Pulmonary edema acute July 11:52am End stage renal disease resolved [facility] 2024 11:52am [facility] Work Phone: 1(825) 574-597502-05-2025 NoteShoot thanks. AUTHENTICATED BY YING QUISPE ON 07/03/2024 13:05:25[facility] [id number] History of Present illness Narrative* Ying Quispe DO - 07/03/2024 1:05 PM EST Shoot thanks. * Codie Garcia RN - 07/03/2024 11:12 AM EST Care Management Referral received from PCP office [facility]- spoke with John mills- he confirms that referral received but pt chose to go with another HHC. Spoke with pt introduced self, role and purpose of call. Pt states she did not get discharged. She stated some things changed. Pt had difficult time in telling this RNCM what facility she was at - eventually [facility]. Pt unsure of discharge date No future appointments. BP Readings from Last 3 Encounters: 04/04/24 (!) 82/60 03/20/24 (!) 147/68 02/25/24 100/67 documented in this [id number] History of Present illness Narrative* Codie Garcia RN - 07/02/2024 10:53 AM EST Care Management Referral received from PCP office 07/02/24 first attempt to contact Scott Obregon regarding Transition of Care Follow Up. Unable to initiate due to No Answer, Left Message, I will continue to try later Provided Care Management Introduction Letter, Today via [employer]/RMI- attempted to contact unsuccessfully, left voice message with contact information provided. BP Readings from Last 3 Encounters: 04/04/24 (!) 82/60 03/20/24 (!) 147/68 02/25/24 100/67 No future appointments. documented in this [id number] Evaluation note* Diagnosis Onset Date Resolution Status Admit Date Eschar of toe acute May 2:56pm PAD (peripheral artery disease) acut e June 05, 2024 2:56pm S/P AAA repair acute May 2:56pm End stage renal disease resolved F [id number] [...] 2024 3:42pm Coffee ground emesis acute Jamal h 2024 3:42pm Factor V Leiden acute July [...] July 11:52am End stage renal disease resolved 2024 11:52am [facility] Work Phone: 1(271) 543-571312-03-2024 Evaluation note* Diagnosis Onset Date Resolution Status [...] 2024 3:42pm Coffee ground emesis acute Jamal h 2024 3:42pm Diarrhea acute July 31 3:42pm Factor V Leiden acute July 3:42pm GI bleed acute July 31 3:42pm Hypoglycemia acute July 31, 2 025 3:42pm Raynaud disease acute July 3:42pm Chronic kidney disease with end stage renal 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 chronic July 31, 2024 3:42pm End stage renal disease inactive 2024 3:42pm Anasarca acute August 14 11:52am Pulmonary edema acute July 11:52am [facility] Work Phone: 1(570) 536-625512-03-2024 Evaluation note* Diagnosis Onset Date Resolution Status [...] 31 3:42pm End stage renal disease acute 2024 3:42pm Factor V Leiden acute July 3:42pm GI bleed acute July 31 3:42pm Hypoglycemia acute July 31, 2 025 3:42pm Raynaud disease acute July 3:42pm Chronic kidney disease with end stage renal 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 chronic July 31, 2024 3:42pm Anasarca acute August 14 11:52am End stage renal disease acute [facility] 19th, 2025 11:52am Pleural effusion acute August 142024 11:52am Pulmonary edema acute July 11:52am [facility] Work Phone: 1(147) 948-369311-08-2024 History of Present illness Narrative* Corrina Dawn MA - 04/05/2024 2:45 PM EST Referral for hospice care and office note from Cate Contreras CNP 04/04/24 faxed to [facility] [phone]. documented in this [id number] History of Present illness Narrative* Cate Contreras CNP - 04/04/2024 10:00 AM EST Images from the original note were not included. Office Visit Patient Name: Scott Obregon MR #: [id number] Assessment/Plan: I saw Scott in the office [...] requiring iHD, wound necrosis who presented to [facility] from [facility] on 03/12/2024 with concerns [...] 1 tablet by mouth every morning . LSFXDARO-MFP-FKZX FUM-FOLIC AC (THERA-M) 19 MG IRON- 400 [...] and affect as above Cate Contreras CNP [phone] documented in this [id number] NoteOffice Visit Patient Name: Scott Obregon MR #: [id number] Assessment/Plan: I saw Scott in the office [...] requiring iHD, wound necrosis who presented to [facility] from [facility] on 03/12/2024 with concerns [...] 1 tablet by mouth every morning . GRYFEXGF-UWV-FDAL FUM-FOLIC AC (THERA-M) 19 MG IRON- 400 MCG TAB Take 1 tablet by mouth every morning . MULTIVITAMIN (THERAGRAN) PER TABLET Take 1 (one) tablet by mouth daily . ONDANSETRON (ZOFRAN) 4 MG TABLET Take 1 (one) t (more content not included)... [facility]10-23[facility] Note [facility]-23-2024 [facility] 03-19-2024 [facility]2024 Note [facility]-20-2024 [facility] 03-17-2024 [facility]10-20-2024 [facility]10-19-2024 [facility]10-19-2024 [facility]2024 Note [facility]-18-2024 [facility] 03-15-2024 [facility]10-18-2024 [facility]10-17-2024 [facility]2024 [facility]-2024 [facility]-2024 Note [facility]-16-2024 [facility]-13-2024 [facility] Bapnsuaq69-05-7124 [facility] Iiwszcqr01-21-3836 [facility] Ykcdrutw95-54-5736 [facility] Fijrnrvg50-65-7829 [facility] Oxogjbmf86-50-9843 Note [place] [facility] Rybptngz96-47-6051 [facility] 02-23-2024 [facility] Nhkrdceo10-48-1476 [facility] Qtkjfmvq36-18-8242 [facility] Kbhhdtji94-11-3647 [facility] Yljlybax91-31-7030 [facility] Knlpuivo05-49-7121 Note [place] [facility] Yfjxfrlf01-69-0655 [facility] 02-22-2024 [facility] Nmeujfwu19-19-5926 [facility] Mjeqwobr33-53-3056 [facility] Eglulsmt28-94-3692 [facility] Xcugwghd45-89-5457 [facility] Lzugcnaq88-77-6039 Note [place] [facility] Ybxghuvw87-04-8462 [facility] 02-19-2024 [facility] Gwldnpdm13-22-6498 [facility] Pmafdubv70-55-1578 [facility] Ycwivpuk40-80-1739 [facility] Zeoedymg78-54-8723 [facility] Cqsoodlq30-93-0049 Note [place] [facility] Scccwdkd96-00-3784 [facility] 02-18-2024 [facility] Nxyciixd50-10-7818 [facility] Fwfvnipn56-24-7155 [facility] Grypdlgp54-40-2177 [facility] Rtzaxhmh71-61-9463 [facility] Yzsatmin25-13-4123 Note [place] [facility] Tlkutxhq64-10-7738 [facility] 02-16-2024 [facility] Cbtdfadj70-87-8393 [facility] Sagrecfp48-19-7138 [facility] Zgiontpk53-52-1093 [facility] Vuvrzejf85-21-0125 NoteChest tube output near 0 Chest x-ray stable Patient tolerating diet No new complaints Remove chest tube Will follow serial chest x-rays/exam AUTHENTICATED BY SRI ROMAN, ON 02/15/2024 09:22:25[facility]-2024 Note [facility]-18-2024 [facility] 02-14-2024 [facility]-2024 [facility]-18-2024 [facility]-2024 [facility]17-2024 [facility]17-2024 Note [facility]-17-2024 [facility] 02-13-2024 [facility]-17-2024 NotePROGRESS :This report has been cancelled.[facility]-16-2024 [facility]09-16-2024 [facility]-16-2024 Note Patient stable sleeping this a.m. Chest tube output appears to have diminished over the weekend Chest x-ray with no major changes IR lymph angiogram today AUTHENTICATED BY SRI ROMAN, ON 02/12/2024 08:21:01[facility]-16-2024 [facility]-16-2024 Note [facility]-15-2024 [facility] 02-11-2024 [facility]-2024 [facility]-14-2024 [facility]-2024 [facility]-14-2024 [facility]-2024 Note [facility]-13-2024 [facility] 02-09-2024 [facility]-2024 [facility]-2024 [facility]-2024 [facility]-13-2024 NotePt w/o new complaints Cxr stable Ct output lower - 95cc serous Flush tube today / pleur evac marked to ensure output accuracy Lymphangiogram planned for monday AUTHENTICATED BY SRI ROMAN, ON 02/09/2024 08:23:39[facility]09-12-2024 [facility]-12-2024 Note [facility]-12-2024 [facility] 02-08-2024 [facility]-2024 [facility]-2024 [facility]-2024 [facility]-2024 [facility]-10-2024 Note [facility]-10-2024 [facility] 02-06-2024 [facility]-10-2024 [facility]-10-2024 [facility]-10-2024 [facility]-2024 [facility]-2024 Note [facility]-09-2024 [facility] 02-05-2024 [facility]-2024 [facility]-2024 [facility]-08-2024 [facility]-2024 [facility]-2024 Note [facility]-08-2024 [facility] 02-03-2024 [facility]-07-2024 [facility]-07-2024 [facility]-07-2024 [facility]-07-2024 [facility]-2024 Note [facility]-06-2024 [facility] 02-02-2024 [facility]-2024 [facility]-05-2024 [facility] Kyjpdwdz31-59-3478 [facility] Wwkctcqn67-56-6743 [facility] Xbrguijp95-47-7383 Note [place] [facility] Afexaowj26-74-7785 [facility] 01-31-2024 [facility] Rzfiyhkh01-60-1617 [facility] Eagxzmok17-25-9489 [facility] Lqnccewx19-30-3723 [facility] Wuuuckow63-09-6739 [facility] Kjvxrhvc92-74-0390 Note [place] [facility] Ucaefueu31-35-1369 [facility] 01-30-2024 [facility] Hreztjbc00-02-4081 [facility] Vvfhppmk33-19-6815 [facility] Loqoagnu20-11-3529 [facility] Gbzcmadq31-35-0950 [facility] Yvhdvbso26-18-0979 Note [place] [facility] Hinhkwlt99-97-5790 [facility] 01-27-2024 [facility] Onuxlfsm84-41-3468 [facility] Rooztllr43-90-2793 [facility] Lqurjoog04-86-5564 [facility] Grvnygpo37-03-5601 [facility] Rikqzzak81-38-3151 Note [place] [facility] Ygkerbvt50-78-4341 [facility] 01-26-2024 [facility] Xpxrlsoy92-50-8181 [facility] Amqcizgj14-63-4010 [facility] Gojjgdhc99-74-7266 [facility] Czixcltl59-72-3971 [facility] Wtzufovn10-10-6474 Note [place] [facility] Vfzezutm54-13-2280 [facility] 01-24-2024 [facility] Wyjxrpum68-50-3691 [facility] Zrahdzan32-22-5433 [facility] Skhoxxll14-99-7335 [facility] Umzhsfyl99-11-4281 [facility] Aevknjgw06-51-9072 Note [place] [facility] Mjeftboh32-90-2262 [facility] 01-21-2024 [facility]08-24-2024 [facility]08-21-2024 History of Present illness Narrative* Rafaela Garcias RN - 01/17/2024 10:23 AM EDT Spoke with Sergei in Transfer [facility] and provided details for direct admission to [facility] at [facility] on Monday01/19/24 for Endoleak of Ruptured aneurysm Endograft for medical optimization prior to planned Explant of Endograft with Open Aneurysm Repair on Monday01/24/24. documented in this [id number] History of Present illness Narrative* Rafaela Garcias [...] from Dr. Guerra to [facility] on 01/19/24 and plan for Explant of Endograft and Open Aortic Aneurysm Repair on 01/24/24. Case request made. Attempted to reach patient to notify patient of admission and surgery. No answer. Left message on voicemail with request to return call. documented in this [id number] History of Present illness Narrative* Rafaela Garcais RN - 01/11/2024 4:39 PM EDT Received request from Dr. Guerra to [facility] on 01/19/24 and plan for Explant of Endograft and Open Aortic Aneurysm Repair on 01/24/24. Case request made. Attempted to reach patient to notify patient of admission and surgery. No answer. Left message on voicemail with request to return call. documented in this [id number] Evaluation + Plan note* Assessment & Plan [...] graft in the left renal artery dario [place] Excluder endograft. Duplex sonography demonstrated that the [...] who did her original operative procedure at [facility] and the 2 of us will come up with a therapeutic solution for this patient. I will admit her to my service and Dr. Guerra has agreed to help me with her surgery. [id number] Miscellaneous Notes* Assessment & Plan Note - [...] graft in the left renal artery dario [place] Excluder endograft. Duplex sonography demonstrated that the [...] who did her original operative procedure at [facility] and the 2 of us will come up with a therapeutic solution for this patient. I will admit her to my service and Dr. Guerra has agreed to help me with her surgery. documented in this [id number] NoteAssessment Ruptured abdominal aortic aneurysm (AAA) (HCC) I reviewed the CT angiogram with the patient and her significant other who was in the room. 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 The patient had a ruptured abdominal aortic aneurysm that was treated with a parallel graft in the left renal artery and a [place] Excluder endograft. Duplex sonography demonstrated that the [...] who did her original operative procedure at [facility] and the 2 of us will come [...] Aneurysm Repair; Surgeon: Edenilson Guerra DO; Location: [facility] HYBRID OR; Service: Gen-Vascular Current Outpatient [...] MG tablet Take (more content not included)... [facility]08-13-2024 History of Present illness Narrative* Sarath [...] graft in the left renal artery dario [place] Excluder endograft. Duplex sonography demonstrated that the [...] who did her original operative procedure at [facility] and the 2 of us will come [...] Aneurysm Repair; Surgeon: Edenilson Guerra DO; Location: [facility] HYBRID OR; Service: Gen-Vascular Current Outpatient [...] Admin Instructions 2.5mg on M/W/F 5mg on // RE-CHECK ON 12/20/23 . [...] See Admin Instructions l 2.5 mg on M/W/F. 5mg all other days. Recheck on 12/20/2023. [...] significant pain. The note was dictated using Digital Folio dictation system. The voice recognition software is inherently subject to errors including those of syntax and sound- alike substitutions which may escape proofreading. In such instances, original meaning may be extrapolated by contextual derivation. documented in this [id number] Instructions* Patient Instructions* Sae Esparza MA - 01/09/2024 12:30 PM EDT How to contact your Care Team: Provider: MD Ana Fernandez CNP Jill Bender, PA Nurse: Ray Guido RN To reschedule office appointments call Scheduling [phone] In case of an emergency please call 911. When in need of refills please call the phone number listed above. Please include medication name, pharmacy name and specify 30 or 90 day supply Please check with your pharmacy within 24 hours of your request for refill. You must follow up as directed to continue current refills. Thank you! documented in this [id number] History of Present illness Narrative* Ray Guido RN - 01/05/2024 3:56 PM EDT Order received from Dr. Rey for CTA, urgently due to recent AAA US results of endo leak. Patient will require hydration and IV dye allergy protocol. Patient aware that she will be receiving a call with date and time of CTA for next week. documented in this [id number] History of Present illness Narrative* Michelle Littlejohn, [facility],PharmD - 01/03/2024 8:03 AM EDT Images from the original note were not included. Anticoagulation Progress Note Date of Visit: January 03, 2024 Patient Name: Scott Obregon : 1960 Age: 63 y.o. Scott Obregon had her INR checked and result called in by her home health nurse, Makenzie, from [facility]. Anticoagulation Summary As of 01/03/2024 INR goal: 2.0-3.0 TTR: 78.8% (11.6 mo) INR used for dosin.7 (01/03/2024) Warfarin maintenance plan: 2.5 mg (5 mg x 0.5) every Mon, Fri; 5 mg (5 mg x 1) all other days Weekly warfarin total: 30 mg Plan last modified: Michelle Littlejohn, [facility],PharmD (01/03/2024) Next INR check: 01/10/2024 Priority: [...] clinic with any changes. Michelle Littlejohn RPh,Alfredo [facility] Dept: [phone] documented in this [id number] History of Present illness Narrative* Michelle Littlejohn [...] Michelle Littlejohn RPh,PharmD (12/21/2023) Next INR check: 01/03/2024 Priority: High [...] clinic with any changes. Michelle Littlejohn RPh,PharmD [facility] Dept: [phone] documented in this [id number] Evaluation + Plan note* Assessment & Plan [...] heal. 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 I also gave her a prescription for a handicap sticker to help with her fatigue. 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 [id number] Miscellaneous Notes* Assessment & Plan Note - [...] heal. 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 I also gave her a prescription for a handicap sticker to help with her fatigue. 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 documented in this [id number] NoteAssessment Ruptured abdominal aortic aneurysm (AAA) (HCC) The patient continues to recover from a heroic endovascular procedure to save her life. 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 I also gave her a prescription [...] aneurysm. The patient was life flighted from [place] to [facility] where Dr. Bart Guerra and Dr. Tylor [...] Aneurysm Repair; Surgeon: Edenilson Guerra DO; Location: [facility] HYBRID OR; Service: Gen-Vascular Current Outpatient [...] See Admin Instructions l 2.5 mg on /W/. 5mg all other days. Recheck on 12/20/2023. . No current facility-administered medications for this visit. Family History Problem Relation Age of Onset Heart disease Father Hypertension Father Cancer Father colon Diabetes Father Heart disease Sister Diabetes Sister Hypertension Sister Thyroid disease Mother Kidney disease Mother Breast cancer Sister (more content not included)...[facility] 12-26-2023 History of Present illness Narrative* [...] heal. 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 I also gave her a prescription [...] aneurysm. The patient was life flighted from [place] to [facility] where Dr. Bart Guerra and Dr. Tylor [...] Aneurysm Repair; Surgeon: Edenilson Guerra DO; Location: [facility] HYBRID OR; Service: Gen-Vascular Current Outpatient [...] significant pain. The note was dictated using Digital Folio dictation system. The voice recognition software is inherently subject to errors including those of syntax and sound- alike substitutions which may escape proofreading. In such instances, original meaning may be extrapolated by contextual derivation. documented in this [id number] Instructions* Patient Instructions* Sae Esparza MA - 12/26/2023 11:53 AM EDT How to contact your Care Team: Provider: MD Ana Fernandez CNP Jill Bender, PA Nurse: Ray Guido RN To reschedule office appointments call Scheduling [phone] In case of an emergency please call 911. When in need of refills please call the phone number listed above. Please include medication name, pharmacy name and specify 30 or 90 day supply Please check with your pharmacy within 24 hours of your request for refill. You must follow up as directed to continue current refills. Thank you! documented in this [id number] NoteBmp is stable no change in meds see how she's doing please AUTHENTICATED BY YING QUISPE, ON 12/22/2023 06:40:[address] [place] [address] 12-21-2023 History of Present illness Narrative* Michelle Littlejohn, [facility],PharmD - 12/21/2023 12:40 PM EDT Anticoagulation Progress Note Date of Visit: December 21, 2023 Patient Name: Scott Obregon : 1960 Age: 63 y.o. Scott Obregon was called for an anticoagulation follow-up visit. INR obtained via venipuncture. Patient had a POC fingerstick INR done yesterday by her home health nurse, Adilene, from [facility]. Fingerstick INR result was 4.4, so it was recommended that patient have a venipuncture comparison. Nurse was unable to do blood draw yesterday, so patient went to [facility] this morning. Anticoagulation Summary As of 12/21/2023 INR goal: 2.0-3.0 TTR: 79.6% (11.2 mo) INR used for dosin.9 (12/21/2023) Warfarin maintenance plan: 2.5 mg (5 mg x 0.5) every Mon, Wed, Fri; 5 mg (5 mg x 1) all other days Weekly warfarin total: 27.5 mg Plan last modified: Michelle Littlejohn, [facility],PharmD (12/21/2023) Next INR check: 12/27/2023 Priority: [...] next Monday. Patient is due for a hcxu-qn-pkju visit in clinic, but according to nurse, [...] clinic with any changes. Michelle Littlejohn RPh,PharmD [facility] Dept: [phone] documented in this [id number] History of Present illness Narrative* Michelle Littlejohn RPh, PharmD - 12/13/2023 1:13 PM EDT Images from the original note were not included. Anticoagulation Progress Note Date of Visit: December 13, 2023 Patient Name: Scott Obregon : 1960 Age: 63 y.o. Scott Obregon Had her INR checked and result called in by her home health nurse, Makenzie, from [facility]. Anticoagulation Summary As of 12/13/2023 INR [...] clinic with any changes. Michelle Littlejohn RPh,PharmD [facility] Dept: [phone] documented in this [id number] History of Present illness Narrative* Justine Hodges [...] patient's identity and that they were in [place] at the time of the visit. I [...] that there are some limitations compared to kseb-rw-news evaluations. We elected to proceed. Anticoagulation Summary As of 12/06/2023 INR goal: 2.0-3.0 TTR: 83.4% (10.6 mo) INR used for dosin.4 (12/06/2023) Warfarin maintenance plan: 2.5 mg (5 mg x 0.5) every Fri; 5 mg (5 mg x 1) all other days Weekly warfarin total: 32.5 mg Plan last modified: Justine Hodges RPh, PharmD (12/06/2023) Next INR check: 12/13/2023 Priority: High [...] contact clinic with any changes. Justine Hodges [facility],PharmD [facility] Dept: [phone] documented in this [id number] Telephone encounter Note* Telephone Encounter - Rachael Gipson RN - 12/06/2023 8:27 AM EDT error [id number] Miscellaneous Notes* Telephone Encounter - Rachael Gipson RN - 12/06/2023 8:27 AM EDT error documented in this [id number] History of Present illness Narrative* Adilene Bryan RPh,Alfredo - 11/29/2023 12:02 PM EDT Images from the original note were not included. Anticoagulation Progress Note Date of Visit: November 29, 2023 Patient Name: Scott Obregon : 1960 Age: 63 y.o. Scott Obregno Spoke to [facility] with [facility] . INR obtained from an outside source: [...] clinic with any changes. Adilene Bryan RPh,PharmD [facility] Dept: [phone] documented in this [id number] NoteGfr 45 hemoglobin 9 will improve with nutrition and hydration recheck on next visit no change in meds thanks. AUTHENTICATED BY YING QUISPE, ON 11/27/2023 07:17:41[facility] [id number] NoteHPI Here with Hi, discharge summary below reviewed. Here 11/23/2023. Doing physical therapy at home and sn drawing pt/inr every wk at home. For weakness twice wkly following bp at home. Bp today 100/60 sitting and 110/60 standing. OT involved too. Having ct angiogram abdomen 11/2023. 15th is angiogram and the 2nd is brachial index. Tsh/t4 appreciated. [facility] DISCHARGE SUMMARY Scott Obregon Account: [id number] Admitted: 10/09/2023 Discharge Date/Time: 10/23/23 / 8:28 AM Handoff to PCP PCP to address the following Outpt Vasc Surg f/u Smoking cessation Clinical Summary Scott Obregon is a 63 y.o. female with a history of Factor 5 Leiden on warfarin, Chronic Back Pain, Smoker, PVD who presented to [facility] with multiple syncopal episodes, r sided abdominal pain on 10/09/[address] abdomen pelvis without contrast showed very large ruptured infrarenal aortic aneurysm. Pt transferred to [facility] 10/09/23 for advanced surgical evaluation. [facility] was consulted 10/12/23 to assume care upon [...] OP, Hypothyroidism: Per Hx. levothyroxine ordered. Smoker: 05/30 ppd. Refused patch. Motivated to quit. Severe Protein Calorie Malnutrition: Per Hx. Critical Care Transport Nurse consulted. Code status: Full Discharge Medications Discharge [...] Quispe DO, , Address: [address] / [facility] [address] Follow Up: Physicians, [facility] [address] [facility] [address] [facility] [address] Follow up You are scheduled for your 1 month follow up appointment with Dr. Kruger on Monday11-16-23 at 8:00 am [facility] [address] [facility] [address] Follow up You are scheduled for your Renal ultrasound on 11-16-2023 at 9:00 am in [place] Nothing to eat/drink after midnight the night before Edenilson Guerra DO [address] [facility] [address] [facility] [address] Follow up in 1 month(s) Follow up in 1 month(s) [address] [address] Ying Quispe DO [address] [facility] (more content not included)...[facility] [id number] History of Present illness Narrative* Ying Quispe DO - 11/23/2023 1:47 PM EDT Images [...] the 2nd is brachial index. Tsh/t4 appreciated. [facility] DISCHARGE SUMMARY Scott Obregon Account: [id number] Admitted: 10/09/2023 Discharge Date/Time: 10/23/23 / 8:28 AM Handoff to PCP PCP to address the following Outpt Vasc Surg f/u Smoking cessation Clinical Summary Scott Obregon is a 63 y.o. female with a history of Factor 5 Leiden on warfarin, Chronic Back Pain, Smoker, PVD who presented to [facility] with multiple syncopal episodes, r sided abdominal pain on 10/09/[address] abdomen pelvis without contrast showed very large ruptured infrarenal aortic aneurysm. Pt transferred to [facility] 10/09/23 for advanced surgical evaluation. [facility] [...] quit. Severe Protein Calorie Malnutrition: Per Hx. Critical Care Transport Nurse consulted. Code status: Full Discharge Medications Discharge [...] Physician(s) Family: Ying Quispe DO, , Address: [facility] / [facility] [address] Follow Up: Physicians, [facility] [facility] [address] [facility] [address] Follow up You are scheduled for your 1 month follow up appointment with Dr. Kruger on Monday11-16-23 at 8:[address] [address] Follow up You are scheduled for your Renal ultrasound on 11-16-2023 at 9:00 am in [place] Nothing to eat/drink after midnight the night before Edenilson Guerra DO [address] [place] [address] [facility] [address] Follow up in 1 month(s) Follow up in 1 month(s) [facility] [address] [place], [place] [address] Ying Quispe DO [address] [facility] [address] Follow up Vitals: 11/23/23 1311 11/23/23 1317 [...] Aneurysm Repair; Surgeon: Edenilson Guerra DO; Location: [facility] OR; Service: Gen-Vascular Social History Socioeconomic History [...] mouth daily . naloxone (NARCAN) 4 mg/actuation [place] Administer 1 (one) spray (4 mg total) [...] effects of the medications. documented in this [id number] NoteNew patient - podiatry wound clinic VISIT Abigail Estrella CNP Patient Name: Scott Obregon. . Date of : 1960, 63 y.o.. Gender: female. Author: Abigail Estrella CNP Subjective: Patient is a 63-year-old female coming to wound clinic being referred by Dr. Kruger vascular surgeon at [place] to the wound clinic for left foot necrotic ulcers. Patient sustained and underwent repair for triple abdominal aneurysm in September. She presented to [place] ED and was life flighted to [place]. She had difficulty following up with her surgical team due to distance and she was referred to be seen by vascular surgery team here for follow-up. Patient has pending appointment with Dr. Rey December 25. Surgery at [place] was completed by Dr. Guerra and Dr. [...] 1405 Wound Width (cm) 2 cm 11/22/23 140 Wound Surface Area (cm^2) 1.2 cm^2 11/22/23 140 Area % Change 0 11/22/23 140 Wound Progress Initial exam 11/22/23 140 Drainage Amount None 11/22/23 1405 Odor None 11/22/23 140 Wound Bed Characteristics Dry;Black 11/22/23 140 Zuleima-wound Assessment Cool 11/22/23 140 Cleansed Soap and water 11/22/23 140 Assessment: Left foot and toe ischemia Peripheral [...] follow-up CTA to be completed here in [place]) Continue working on tobacco cessation. Patient states she has quit smoking but cigarettes were visible in her purse I will follow-up with the patient once PAL results are available. Patient has office phone number and address available, call immediately if there are any acute changes to the left foot AUTHENTICATED BY ABIGAIL ESTRELLA, ON 11/23/2023 07:01:[address] [place] [address] 11-22-2023 History of Present illness Narrative* Abigail [...] referred by Dr. Kruger vascular surgeon at [place] to the wound clinic for left foot necrotic ulcers. Patient sustained and underwent repair for triple abdominal aneurysm in September. She presented to [place] ED and was life flighted to [facility]. She had difficulty following up with her surgical team due to distance and she was referred to be seen by vascular surgery team here for follow-up. Patient has pending appointment with Dr. Rey December 25. Surgery at [place] was completed by Dr. Guerra and Dr. [...] order follow-up CTA to be completed here [facility]) Continue working on tobacco cessation. Patient states she has quit smoking but cigarettes were visible in her purse I will follow-up with the patient once PAL results are available. Patient has office phone number and address available, call immediately if there are any acute changes to the left foot documented in this [id number] Instructions* Patient Instructions* Makenzie Abrams RN - 11/22/2023 2:34 PM EDT [place] left great toe and fifth toe ulcers with Betadine, secure with Kerlix. At home continue painting toes if they become wet. Protect from injury, keep foot warm documented in this [id number] History of Present illness Narrative* Michelle Littlejohn, ANDREA,PharmD - 11/21/2023 1:33 PM EDT Anticoagulation Progress [...] 37.5 mg Plan last modified: Adilene Bryan, [facility],PharmD (11/14/2023) Next INR check: 11/29/2023 Priority: [...] clinic with any changes. Michelle Littlejohn RPh,PharmD [facility] Dept: [phone] documented in this [id number] Telephone encounter Note* Telephone Encounter - [place] [...] is it scheduled): 11/23/23 Please send to [id number] - [place], [place] - [address] [address] Follow up: Refill pending for review without additional follow up based on information above. [id number] Miscellaneous Notes* Telephone Encounter - [place] [...] is it scheduled): 11/23/23 Please send to [id number] - [place], [place] - [address] [place] [place] [address] Follow up: Refill pending for review without additional follow up based on information above. documented in this [id number] Evaluation + Plan note* Assessment & Plan [...] for her to be seen in the [place] wound center, and I have also placed a referral for her to see Dr. Sarath Rey in [place] as it is difficult for them to get to [place] for routine follow-up. We will arrange for [...] recommend her systolic be less than 130. [id number] Miscellaneous Notes* Assessment & Plan Note - [...] for her to be seen in the [facility] center, and I have also placed a referral for her to see Dr. Sarath Rey in [place] as it is difficult for them to get to [place] for routine follow-up. We will arrange for [...] be less than 130. documented in this [id number] [facility] [address] [place] [address], [address] [place] [address] Scott Obregon is a 63 y.o.female who [...] for her to be seen in the [place] wound center, and I have also placed a referral for her to see Dr. Sarath Rey in [place] as it is difficult for them to get to [place] for routine follow-up. We will arrange for [...] Aneurysm Repair; Surgeon: Edenilson Guerra DO; Location: [facility] OR; Service: Gen-Vascular Family History [...] mouth every 6 (si (more content not included)...[facility] [id number] History of Present illness Narrative* Tylor Kruger MD - 11/17/2023 8:17 AM EDT Images from the original note were not included. [facility] [address] [place] [address], [address] [place] [address] Scott Obregon is a 63 y.o.female who [...] for her to be seen in the [place] wound center, and I have also placed a referral for her to see Dr. Sarath Rey in [place] as it is difficult for them to get to [place] for routine follow-up. We will arrange for [...] Aneurysm Repair; Surgeon: Edenilson Guerra DO; Location: [facility] HYBRID OR; Service: Gen-Vascular Family History [...] mouth daily . naloxone (NARCAN) 4 mg/actuation [place] Administer 1 (one) spray (4 mg total) [...] Patient Position: Sitting Sitting BP Cuff Size: Isai Youth Pulse: 63 65 Weight: 56.7 kg [...] result was not included. ED PROVIDER NOTE [facility] NAME: Scott Obregon AGE: 63 y.o. : 1960 VISIT DATE: 10/09/2023 CSN: [id number] PCP: Ying Quispe DO Chief Complaint Patient [...] 103/76 97.6 F (36.4 C) Temporal (!) (!) 22 99 % -- -- 10/09/232005 [...] ms QTC Calculation (Bezet) 449 ms P Carbon 55 degrees R Carbon 55 degrees T Carbon 99 degrees Type and Screen Result Value Ref Range ABORh O Positive Antibody Screen Negative Specimen Expires 10/12/2023 23:59 EST Prepare RBC: 2 Units Result Value Ref Range Product ID Red Blood Cells Blood Type Code 5100 Product Code [id number] Status Info Ready for issue Unit Number [id number] Blood Type O Pos Cross Match Compatible Product ID Red Blood Cells Blood Type Code 5100 Product Code [id number] Status Info Ready for issue Unit Number [id number] Blood Type O Pos Cross Match Compatible [...] Respectfully, Tylor Kruger MD documented in this [id number] Instructions* Patient Instructions* Rachael Gipson RN - 11/17/2023 8:12 AM EDT We will see you back in the office: to follow up with Dr. Rey in [place] and wound care Labs: creatinine lab draw prior to CT scan Medication Changes: The following testing has been ordered for you: CT angiogram of abdomen/pelvis with lower extremityrunoff Scheduling should reach out to you to schedule testing But if you do not hear from them please call the number below To schedule testing please reach out to [phone] and follow the prompts to scheduling If you need to schedule, cancel or reschedule an appointment please call [place] office [phone] If you have any questions please call JACKIE Cano [phone] documented in this [id number] History of Present illness Narrative* Adilene Bryan RPh,PharmD - 11/14/2023 9:59 AM EDT Images from the original note were not included. Anticoagulation Progress Note Date of Visit: November 14, 2023 Patient Name: Scott Winters Mago : 1960 Age: 63 y.o. Scott Head with [facility] called with INR results. INR obtained from an outside source: Home Health. Anticoagulation Summary As of 11/14/2023 INR goal: 2.0-3.0 TTR: 87.0% (9.9 mo) INR used for dosin.5 (11/14/2023) Warfarin maintenance plan: 7.5 mg (5 mg x 1.5) every Tue, Elena, Sat; 5 mg (5 mg x 1) all other days Weekly warfarin total: 42.5 mg Plan last modified: Adilene Bryan, [place],PharmD (02/15/2023) Next INR check: 11/21/2023 Priority: High [...] clinic with any changes. Adilene Bryan RPh,PharmD [facility] Dept: [phone] documented in this [id number] Patient's home Progress note* Actions CP assess, [...] level / walkout documented in this encounter [id number] History of Present illness Narrative* Michelle Littlejohn, ANDREA,PharmD - 11/08/2023 4:07 PM EDT Anticoagulation Progress Note Date of Visit: November 08, 2023 Patient Name: Scott Obregon : 1960 Age: 63 y.o. Scott Obregon Had her INR checked and result called in by her home health nurse, Camila, from [facility]. Anticoagulation Summary As of 11/08/2023 INR goal: 2.0-3.0 TTR: 87.6% (9.7 mo) INR used for dosin.3 (11/08/2023) Warfarin maintenance plan: 7.5 mg (5 mg x 1.5) every Mon, Elena, Sat; 5 mg (5 mg x 1) all other days Weekly warfarin total: 42.5 mg Plan last modified: Adilene Bryan, [facility],PharmD (02/15/2023) Next INR check: 11/16/2023 Priority: [...] 42.5 mg/week since discharging from [facility]. INR is therapeutic today at 2.3. Since INR is in range, will continue same dose. Will recheck next week again to ensure stability. PLAN: Will continue weekly warfarin dose of 42.5 mg/week. Will check next INR in 1 week unless there are any changes before then. Encouraged patient to contact clinic with any changes. Michelle Littlejohn RPh,PharmD [facility] Dept: [phone] documented in this [id number] Patient's home Progress note* Actions [facility] Clinical [facility] farrukh Patient's goals for HomeCare: to [...] dry them thoroughly. documented in this encounter [id number] Patient's home Progress note* Actions [facility] Clinical Ki chadwick Patient's goals for HomeCare: to gain strength, [...] dry them thoroughly. documented in this encounter [id number] History of Present illness Narrative* Rafaela Garcias RN - 11/03/2023 11:02 AM EDT Reviewed with Dr. Guerra post op follow up appt with Cate Contreras WELDING PANTOGRAPH MACHINE OPERATOR s/p EVAR and Right Renal Stenting 10/10/[address] Guerra and Dr. Kruger. Per review, patient is scheduled for follow up with on 11/[address] with [address] ultrasound[address] Per Dr. Guerra, patient to continue follow up with Dr. Kruger and does not need to continue followup with us. Patient aware of follow up with Dr. Kruger documented in this [id number] NoteOffice Visit Patient Name: Scott Obregon MR #: [id number] Assessment/Plan: I saw Scott in the office today for the one week Vascular surgery follow-up. she is a 63 y.o. female with history of Hyperlipidemia, hypertension, factor 5 [place] on coumadin, hypothyroidism, appendicitis s/p laparoscopic appendectomy (09/14/2018) who presented to [facility] on 10/09/2023 with a ruptured infrarenal abdominal aortic aneurysm, acute blood loss anemia, hemorrhagic shock and underwent emergent EVAR and snorkel stent to left renal artery, right brachial artery cutdown on 10/10/[address] Guerra and Dr. Kruger. She is currently at [facility] for a prolonged recovery. 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 she is a 63 y.o. female with history of Hyperlipidemia, hypertension, factor 5 [place]iden on coumadin, hypothyroidism, appendicitis s/p laparoscopic appendectomy (09/14/2018) who presented to [facility] on 10/09/2023 with a ruptured infrarenal abdominal aortic aneurysm, acute blood loss anemia, hemorrhagic shock and underwent emergent EVAR and snorkel stent to left renal artery, right brachial artery cutdown on 10/10/[address] Guerra and Dr. Kruger. She is currently at [facility] for a prolonged recovery. 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 MAGNESIUM HYDROXIDE (MOM) 400 MG/5 ML [...] kg/m ROS Physical Exam documented in this [id number] [facility] [place]24 Note [facility]-22-2024 [facility] 10-18-2023 [facility] [place] [place] [place] [place] [place]2024 Note [facility]-19-2024 [facility]-14-2023 [facility] [place] [place]2024 [facility] [place]-2024 [facility]05-17-2024 [facility] [place]-2024 Note [facility]-15-2024 History of Present illness Narrative* Yakelin Iqbal MA - 10/11/2023 9:57 AM EDT Patient is s/p emergent EVAR with renal stenting with Dr. Guerra/Dr Kruger. Per Cheyenne Carey DNP,patient needs a 1 month follow up appointment with Dr Kruger only along with a renal duplex. She is scheduled for renal duplex on 11-16-2023 at 9:00 am in [place] then she will see Dr Kruger on Monday11-17-2023 at 8:00am in the [facility] office location. Patient aware/AVS updated documented in this [id number] [facility]05-15-2024 [facility] [place]04-30-2024 NoteSubjective Patient ID: Scott Obregon is a [...] to increase boost to BID Felicity Olson [facility] [phone] AUTHENTICATED BY FELICITY OLSON, ON 09/26/2023 09:39:34[facility] 09-26-2023 History of Present illness Narrative* Felicity Olson, WELDING PANTOGRAPH MACHINE OPERATOR - 09/26/2023 9:16 AM EDT Images from [...] increase boost to BID Felicity Olson CNP [facility] [phone] documented in this [id number] History of Present illness Narrative* LearyAlcides - 09/07/2023 8:09 AM EDT Anticoagulation Progress [...] 42.5 mg Plan last modified: Adilene Bryan, [facility],PharmD (02/15/2023) Next INR check: 10/12/2023 Priority: [...] contact clinic with any changes. [facility] Dept: [phone] Associated attestation - Michelle Littlejohn RPh,PharmD - 09/07/2023 8:20 AM EDT I, Michelle Littlejohn RPh,PharmD, attest that I was present during the patient encounter. I agree withthe documentation, assessment, and plan outlined in the below documentation. documented in this [id number] History of Present illness Narrative* Theresa Boykin PA-C - 08/24/2023 1:06 PM EDT [facility] Neurosurgery Progress Note Patient Name: Scott Obregon [...] symptoms - Advised patient to follow-up with PCP/overhauler re: PAL results - Nursing notes reviewed KATHY Higuera PA-C [facility] Neurosurgery Office: Chief Complaint: Back Pain (Ref [...] studies if clinically indicated. documented in this [id number] History of Present illness Narrative* Michelle Littlejohn, [...] clinic with any changes. Michelle Littlejohn RPh,PharmD [facility] Dept: [phone] documented in this [id number] History of Present illness Narrative* Yfn Puckett [...] well and still working. documented in this [id number] History of Present illness Narrative* Justine Hodges RPh,PharmD - 07/13/2023 8:20 AM EST Anticoagulation Progress [...] contact clinic with any changes. 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 documented in this [id number] History of Present illness Narrative* Arlette Fernandes [...] 42.5 mg Plan last modified: Adilene Bryan, [facility],PharmD (02/15/2023) Next INR check: 07/13/2023 Priority: [...] 62 y.o. female was seen at the [facility]. She is doing well [...] also has started to drink boost around [place]. She is drinking one boost every other [...] patient to contact clinic with any changes. [facility] Dept: [phone] Associated attestation - Adilene Bryan RPh,PharmD - 06/07/2023 8:30 AM EST Adilene Peter, attest that I was present during the patient encounter. I agree with the documentation, assessment, and plan outlined in the below documentation. documented in this [id number] History of Present illness Narrative* Adilene Bryan [...] 62 y.o. female was seen at the [facility]. She is able to [...] clinic with any changes. Adilene Bryan RPh,PharmD [facility] Dept: [phone] documented in this [id number] Instructions* Patient Instructions* Adilene Bryan RPh,PharmD - 05/03/2023 8:10 AM EST If you experience any of the following symptoms within 24 hours of your next appointment, or you have been in close contact with anyone confirmed or suspected to have coronavirus/COVID-19 in the past10 days please call us to reschedule at Dept: [phone]. Fever Cough Shortness of breath Difficulty breathing Chills Repeated shaking with chills Muscle pain Headache Sore throat Any loss of taste or smell Nausea, vomiting or diarrhea If you are screened positive for any of the above upon entering the building, please call us at Dept: [phone] for further instructions before you proceed to the clinic. Thank you for adhering to our precautions to keep our patients and providers safe! documented in this [id number] History of Present illness Narrative* Ying Quispe, DO - 04/24/2023 12:02 PM EST Images from [...] effects of the medications. documented in this [id number] History of Present illness Narrative* Michelle Littlejohn RPh,PharmD - 04/05/2023 8:19 AM EST I, Michelle Littlejohn, attest that I agree with the documentation, assessment, and plan outlined in thebelow documentation. * Justine Hodges RPh,PharmD - 04/05/2023 [...] 01/25/23 5 Encounter Summary: ASSESSMENT: Patient Findings Negatives: Patient [...] clinic with any changes. Justine Hodges RPh,PharmD [facility] Dept: [phone] documented in this [id number] History of Present illness Narrative* Michelle Littlejohn [...] 42.5 mg Plan last modified: Adilene Bryan, [facility],PharmD (02/15/2023) Next INR check: 04/05/2023 Priority: Maintenance [...] contact clinic with any changes. Michelle Littlejohn RPh,PharmKirk [facility] Dept: [phone] documented in this [id number] History of Present illness Narrative* Adilene Bryan [...] 62 y.o. female was seen at the [facility]. She is able to [...] clinic with any changes. Adilene Bryan RPh,PharmD [facility] Dept: [phone] documented in this [id number] Instructions* Patient Instructions* Adilene Bryan RPh,PharmD - 02/15/2023 7:59 AM EDT If you experience any of the following symptoms within 24 hours of your next appointment, or you have been in close contact with anyone confirmed or suspected to have coronavirus/COVID-19 in the past10 days please call us to reschedule at Dept: [phone]. Fever Cough Shortness of breath Difficulty breathing Chills Repeated shaking with chills Muscle pain Headache Sore throat Any loss of taste or smell Nausea, vomiting or diarrhea If you are screened positive for any of the above upon entering the building, please call us at Dept: [phone] for further instructions before you proceed to the clinic. Thank you for adhering to our precautions to keep our patients and providers safe! Electronically signed by Adilene Bryan [facility],PharmD at 02/15/2023 7:59 AM EDT documented in this [id number] History of Present illness Narrative* Michelle Littlejohn [...] 42.5 mg Plan last modified: Lavon Mcmullen [facility],PharmD (01/16/2023) Next INR check: 02/15/2023 Priority: [...] clinic with any changes. Michelle Littlejohn RPh,PharmD [facility] Dept: [phone] documented in this [id number] History of Present illness Narrative* Ying Quispe, [...] effects of the medications. documented in this [id number] History of Present illness Narrative* Barbara Li [...] 42.5 mg Plan last modified: Lavon Mcmullen, [facility],PharmD (01/16/2023) Next INR check: 01/23/2023 Priority: [...] to contact clinic with any changes. [facility] Dept: [phone] Associated attestation - Lavon Mcmullen RPh,PharmD - 01/16/2023 8:34 AM EDT ILavon, attest that I was present during the patient encounter. I agree with the documentation, assessment, and plan outlined in the below documentation. documented in this [id number] History of Present illness Narrative* Adilene Bryan RPh,PharmD - 01/09/2023 8:13 AM EDT I attest [...] 45 mg Plan last modified: Adilene Bryan [facility],PharmD (01/09/2023) Next INR check: 01/16/2023 Priority: [...] contact clinic with any changes. [facility] Dept: [phone] documented in this [id number] Instructions* Patient Instructions* Adilene Bryan RPh,PharmD - 01/09/2023 8:01 AM EDT If you experience any of the following symptoms within 24 hours of your next appointment, or you have been in close contact with anyone confirmed or suspected to have coronavirus/COVID-19 in the past10 days please call us to reschedule at Dept: [phone]. Fever Cough Shortness of breath Difficulty breathing Chills Repeated shaking with chills Muscle pain Headache Sore throat Any loss of taste or smell Nausea, vomiting or diarrhea If you are screened positive for any of the above upon entering the building, please call us at Dept: [phone] for further instructions before you proceed to the clinic. Thank you for adhering to our precautions to keep our patients and providers safe! documented in this [id number] History of Present illness Narrative* Michelle Littlejohn [...] 35 mg Plan last modified: Michelle Littlejohn, [facility],PharmD (12/19/2022) Next INR check: 01/09/2023 Priority: [...] as Boost or Ensure. PLAN: Will boost edgadro's dose to 10 mg, then resume dose of 5 mg daily for a total of 40 mg this week. This is about 14% more than what she has been taking. Will check next INR in 1 week unless there are any changes before then. Encouraged patient to contact clinic with any changes. Michelle Littlejohn RPh,PharmKirk [facility] Dept: [phone] documented in this [id number] History of Present illness Narrative* Adilene Bryan RPh, PharmD - 12/26/2022 8:13 AM EDT Images from [...] 35 mg Plan last modified: Michelle Littlejohn RPh,PharmKirk (12/19/2022) Next INR check: 01/02/2023 Priority: High [...] 62 y.o. female was seen at the [facility]. She confirmed the dose [...] clinic with any changes. Adilene Bryan RPh,PharmD [facility] Dept: [phone] documented in this [id number] Instructions* Patient Instructions* Adilene Bryan RPh,PharmD - 12/26/2022 8:11 AM EDT If you experience any of the following symptoms within 24 hours of your next appointment, or you have been in close contact with anyone confirmed or suspected to have coronavirus/COVID-19 in the past10 days please call us to reschedule at Dept: [phone]. Fever Cough Shortness of breath Difficulty breathing Chills Repeated shaking with chills Muscle pain Headache Sore throat Any loss of taste or smell Nausea, vomiting or diarrhea If you are screened positive for any of the above upon entering the building, please call us at Dept: [phone] for further instructions before you proceed to the clinic. Thank you for adhering to our precautions to keep our patients and providers safe! documented in this [id number] History of Present illness Narrative* Michelle Littlejohn [...] ASSESSMENT: Scott Obregon is new to our [facility] anticoagulation clinic. Indication for warfarin therapyis DVT. [...] before then. [facility] but patient is unable due to work schedule. Encouraged patient to contact clinic with any changes. Michelle Littlejohn RPh,PharmD [facility] Dept: [phone] documented in this [id number] History of Present illness Narrative* Lita Gu [...] MD Template Design [place] documented in this [id number] History of Present illness Narrative* Ying Quispe, [...] at all Somewhat difficult documented in this [id number] History of Present illness Narrative* Lita Gu [...] MD Template Design [place] documented in this [id number] History of Present illness Narrative* Lita Gu [...] MD Template Design [place] documented in this [id number] History of Present illness Narrative* Amalia Fernandez [...] routed to ordering provider. documented in this [id number] Note* Addendum Note - Ying Quispe DO - 08/15/2022 5:28 PM EDTAddended by: YING QUISPE on: 08/15/2022 05:28 PM Modules accepted: Orders [id number] Miscellaneous Notes* Addendum Note - Ying Quispe DO - 08/15/2022 5:28 PM EDTAddended by: YING QUISPE on: 08/15/2022 05:28 PM Modules accepted: Orders documented in this [id number] History of Present illness Narrative* Ying Quispe [...] effects of the medications. documented in this [id number] History of Present illness Narrative* Lita Gu [...] left shoulder. Energy levels fair. Works at [employer]. No pregnancies. No miscarriages in mother, h/o [...] MD Template Design [place] documented in this [id number] Instructions* Patient Instructions* Ying QuispeDO - 06/13/2022 4:31 PM EST Do eliquis 5mg twice daily for 3 months when done with 10mg twice daily for 7 days documented in this [id number] History of Present illness Narrative* Ying Sweeney DO Brittaney - 06/13/2022 4:10 PM EST Images from [...] (HCC) compression sleeve at [facility]. - Ambulatory referral to Hematology / Oncology; [...] - - Somewhat difficult documented in this [id number] Hospital course Narrative* Kat De Dios MD - 06/11/2022 9:31 AM EST Images from the original note were not included. [facility] DISCHARGE SUMMARY -- [facility] Scott Obregon Admitted: 06/10/2022 Discharge Date: [...] daily . Physician(s) Follow Up: Ying Quispe, DO [address] [place] [phone] Follow up Ying Quispe, DO [address] [place] [phone] Lita Gu MD [address] [place] [phone] Follow up Condition at Discharge: Stable Disposition: Home On day of discharge, I performed a final bedside evaluation including a physical exam. I reviewed discharge recommendations with the patient in person. Patient instructions, including activity, were given to the patient/family at discharge. Time spent on discharge: > 30 minutes Completed by: Kat De Dios on 06/11/22, 9:31 AM documented in this [id number] Hospital Discharge instructions * Discharge Instr - [...] include work-up for DVT documented in this [id number] Note* Plan of Care - Stacy Cano [...] discharge plan and instructions Outcome: Partially Met [id number] Miscellaneous Notes* Plan of Care - Stacy [...] the patient. I discussed the patient with TRIM SETTER/PA. I agree with the TRIM SETTER/PA treatment plan. I agree with the TRIM SETTER/PA plan of care. I agree with the TRIM SETTER/PA dispo as documented. Patient is a 61-year-old [...] All other components within normal limits Narrative: [facility] has implemented the eGFR calculation [...] Procedure Abnormality Status --------- ------ CBC Auto Differential[[id number]] Abnormal Final result Please view results for these tests on the individual orders. Imaging Results XR Chest 1 View (Results Pending) Ultrasound Duplex Venous Arm LEFT (Results Pending) CT Head Or Brain Without Contrast (Results Pending) Procedures . documented in this [id number] Note* Plan of Care - Svetlana Monaco [...] discharge plan and instructions Outcome: Partially Met [id number] History of Present illness Narrative* Mendez Tang - 06/10/2022 1:26 PM EST Vascular Surgery Inpatient Consult 06/10/2022 [facility] Patient: Scott Obregon Date of : 1960 [...] N/A 09/14/2018 Procedure: APPENDECTOMY LAPAROSCOPIC; Surgeon: Татьяна Jenikns MD; Location: Main [place]; Service: General Surgery Family History Problem Relation [...] cephalic and basilic veins. documented in this [id number] History and physical note* Adia Rodriguez MD - 06/10/2022 1:25 PM EST [facility]YSICAL -- [facility] Patient Name: Scott Obregon : 1960 MR #: [id number] Admit Date: 06/10/2022 Physicians: Ying Quispe DO [...] 06/10/22 1:33 PM Medications 06/10/22 1:33 PM [facility] Work Phone: [phone]) 172-721901-13-2023 History and physical note* Adia Rodriguez MD - 06/10/2022 1:25 PM EST [facility] AND PHYSICAL -- [facility] Patient Name: Scott Obregon : 1960 MR #: [id number] Admit Date: 06/10/2022 Physicians: Ying Quispe DO [...] a 61 y.o. female patient of Ying Quisep DO with history of Hypothyroidism, hypertension, hyperlipidemia, [...] Medications 06/10/22 1:33 PM documented in this [id number] Emergency department Note* Mendez Ariza RN - 06/10/2022 12:30 PM EST Report called to floor nurse. [id number] Emergency department Note* Mendez Ariza RN - 06/10/2022 12:30 PM EST Report called to floor nurse. * Mendez Ariza RN - 06/10/2022 11:21 AM EST [facility] thisnurse told to hold IV and heparin at this time. Pt may be going home and will be started on oral meds. No other needs. SRx2. Call light in reach. * Bambi Whyte PA-C - 06/10/2022 9:08 AM EST [facility] EMERGENCY DEPARTMENT XIAO NOTE: NAME: Scott Obregon CSN: [id number] 61 y.o. PCP: Ying Quispe DO History: [...] All other components within normal limits Narrative: [facility] Laboratory Services has implemented the eGFR calculation [...] Procedure Abnormality Status --------- ------ CBC Auto Differential[[id number]] Abnormal Final result Please view results for [...] admitted the patient we will consult vascular adapted physical education specialist. This provider spoke with Dr. Pierce vascular surgeon, he will consult with hospitalist as needed. Clinical Impression: 1. Acute deep vein thrombosis (DVT) of axillary vein of left upper extremity (HCC) 2. Chest pain, unspecified type Disposition: ED Disposition ED Disposition Hospitalize Condition -- Comment Phone call required?: No Bambi Whyte PA-C ED Advanced Practice Provider [facility] EMERGENCY DEPARTMENT (Please note that portions [...] Comments: NEXT PT 1 documented in this [id number] Note* Plan of Care - Adia Rodriguez [...] heparin drip. Full consult note will follow. [id number] Emergency department Note* Mendez Ariza RN - 06/10/2022 11:21 AM EST [facility]. thisnurse told to hold IV and heparin at this time. Pt may be going home and will be started on oral meds. No other needs. SRx2. Call light in reach. [id number] Note* ED Attestation Note - Shira Lopez MD - 06/10/2022 10:15 AM EST I personally interviewed the patient. I personally examined the patient. I discussed the patient with TRIM SETTER/PA. I agree with the TRIM SETTER/PA treatment plan. I agree with the TRIM SETTER/PA plan of care. I agree with the TRIM SETTER/PA dispo as documented. Patient is a 61-year-old [...] All other components within normal limits Narrative: [facility] Services has implemented the eGFR calculation [...] Procedure Abnormality Status --------- ------ CBC Auto Differential[[id number]] Abnormal Final result Please view results for these tests on the individual orders. Imaging Results XR Chest 1 View (Results Pending) Ultrasound Duplex Venous Arm LEFT (Results Pending) CT Head Or Brain Without Contrast (Results Pending) Procedures . [id number] Physician Emergency department Note* Bambi Whyte PA-C - 06/10/2022 9:08 AM EST [facility] EMERGENCY DEPARTMENT XIAO NOTE: NAME: Scott Obregon CSN: [id number] 61 y.o. PCP: Ying Quispe DO History: [...] All other components within normal limits Narrative: [facility] Services has implemented the eGFR calculation [...] Procedure Abnormality Status --------- ------ CBC Auto Differential[[id number]] Abnormal Final result Please view results for [...] admitted the patient we will consult vascular adapted physical education specialist. This provider spoke with Dr. Pierce vascular surgeon, he will consult with hospitalist as needed. Clinical Impression: 1. Acute deep vein thrombosis (DVT) of axillary vein of left upper extremity (HCC) 2. Chest pain, unspecified type Disposition: ED Disposition ED Disposition Hospitalize Condition -- Comment Phone call required?: No Bambi Whyte PA-C ED Advanced Practice Provider [facility] EMERGENCY DEPARTMENT (Please note that portions of this note have been completed with a voice recognition software. Efforts were made to correct any errors, but occasionally words are mis-transcribed.) Bambi Whyte PA-C 06/10/22 1145 Bambi Whyte PA-C 06/10/22 1201 [id number] Emergency department Triage note* Mendez Ariza RN [...] fingers. Pt in no distress. GCS 15. [id number] Emergency department Note* Leanne Taylor - 06/10/2022 8:48 AM EST Bed: 15 Expected date: Expected time: Means of arrival: Comments: NEXT PT 1 [id number] History of Present illness Narrative* Ying Quispe, - 06/06/2022 11:48 AM EST Images from the original note were not included. HPI 2 weeks of hand/feet white/bluish worse with weather changes. 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 Denies [...] start today if not better in a [facility] return if ok will see in [...] - - Somewhat difficult documented in this [id number] History of Present illness Narrative* Ying Quispe [...] effects of the medications. documented in this [id number] History of Present illness Narrative* Felicity Olson, [...] at all - - documented in this [id number] History of Present illness Narrative* Yfn Puckett [...] medical complexity decision making. documented in this [id number] History of Present illness Narrative* Ying Quispe DO - 11/18/2021 8:23 AM EDT Images [...] Lipid- Due not fasting documented in this [id number] Telephone encounter Note* Telephone Encounter - Arlette [...] this refill. Please send to Preferred pharmacies: [id number] - [place], [place] - [address] [place] [address] Pt Call Back Number Patient call back message sent to the [facility]. Mary Shaver [id number] Miscellaneous Notes* Telephone Encounter - Arlette Benavidez [...] this refill. Please send to Preferred pharmacies: [facility] - [place], [place] - [address] [place] [address] Pt Call Back Number Patient call back message sent to the [facility]. Mary Shaver documented in this [id number] History of Present illness Narrative* Ying Quispe [...] effects of the medications. documented in this [id number] History of Present illness Narrative* Yfn Lavern [...] medical complexity decision making. documented in this [id number] History of Present illness Narrative* Ying Quispe, [...] difficult at all - documented in this [id number] History of Present illness Narrative* Bambi Huynh MD - 09/29/2020 1:58 PM EDT [facility] [address] [place] [address] Scott Obregon 1960 [id number] HPI: 60-year-old female with history of hypothyroidism, [...] Gets together: Three times a week Attends episcopal service: Not on file Active member of [...] Not difficult at all documented in this [id number] Telephone encounter Note* Telephone Encounter - Bambi Huynh MD - 07/29/2020 6:59 AM EST Patient overdue for appointment [id number] Miscellaneous Notes* Telephone Encounter - Bambi Huynh MD - 07/29/2020 6:59 AM EST Patient overdue for appointment documented in this encounterOhioHealthDischarge summary Author Constantin Jain [facility] Note Date/Time September 15, 2024 7:5 1am [facility] Medical Records Department [address] [place] [address] Emergency Department Summary 09/15/24 MR#: [id number] Acct: [id number] Name: SCOTT OBREGON Rep #:[id number] 15 : 1960 64 From: Constantin Jain MD PCP: Millie Massey MD Status:REG ER Location: ED HPI History of Present Illness Chief Complaint: Shortness of Breath Narrative Narrative: Patient is sent from halfway facility where she is DNR comfort care only, she is a dialysis patient and has a lot of medical problems including clotting disorders, peripheral arterial disease, ESRD, and a history of pulmonary edema that staff at the long term states has improved with Lasix inthe past, she has been dyspneic for the last 12 to 24 hours, and the patient complains of chest pressure as well. She has been coughing no sputum production, she is orthopneic and denies any fevers or chills. No GI symptoms or recent vomiting. She is on chronic oxygen therapy at the long term, unknown how much at baseline but at the long term they have had her nasal cannula up to 5 L this past day. 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 [...] reasonable to send her back to the long term, andshallan will be dialyzed on first shift Monday. I will have staff contact nurses at the long term and discuss her oxygen status, the possibility [...] 84.1 H Lymph % (Auto) 6.9 L Anderson % (Auto) 6.1 Eos % (Auto) 1.5 [...] of significant diffuse pulmonary vascular congestion with zsgvmuzb-oh-acwpp bilateral pleural effusions. Underlying pneumonia to be ruled out. Follow-up until resolution is recommended. Reading Location: [id number] Rhythm Strip Rhythm Strip: Sinus Tach Rate: 110 Ectopy: None EKG Initial EKG: Attestation: I personally reviewed and interpreted this EKG as follows: Interpretation: No Acute Injury Pattern, Sinus Tachycardia and Non-Specific ST Changes Management Discussion w/another healthcare provider: Web Analyst (nephrology Dr. Barrios) Discharge Plan Triage Chief [...] tx acetaminophen 650 mg suppository 650 mg WV Q4H PRN (Reason: fever or pain) Enema 19-7 gram/118 mL enema 118 ml WV DAILY PRN (Reason: constipation) Rx Instructions: NEEDED [...] DISTRESS) bisacodyl 10 mg suppository 10 mg WV DAILY PRN (Reason: constipation) glucagon HCl [Glucagon [...] have the capability of dialyzing patients at [facility] until Monday after 7 AM 09/16/2024. Print Language: Hungarian Disposition Disposition: Home, Self Care What to do if you have Problems For any increased pain, shortness of breath, bleeding, nausea or vomiting, chestpain, or any unexpected problems, contact your Primary Care Provider. Call [facility] ([phone]) or report to the closest Emergency Room. Call 911 if necessary. 09/15/24 0751 <Electronically signed by Constantin Jain MD> Cosigner Signature (if applicable): CC: Millie Massey MD ~ Signed [facility] Work Phone: Evaluation note* Diagnosis Hypothyroidism, [...] type [E78.5]- Primary [facility] Diagnosis History of deep venous [...] extremity (HCC)- Primary [facility]* Diagnosis Acute deep vein thrombosis (DVT) of axillary vein of left upper extremity (HCC)- Primary [facility]* Diagnosis Acute deep vein thrombosis [...] Primary Postoperative leak [facility]* Diagnosis 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)- Primary Elevated serum creatinine Other nonspecific findings on examination of blood [facility]* Diagnosis 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)- Primary [facility]* Diagnosis Hypothyroidism, unspecified type [facility]* Diagnosis Ruptured abdominal aortic aneurysm (AAA) [...] (AAA) (HCC)- Primary [facility]* Diagnosis Ruptured abdominal aortic aneurysm (AAA) (HCC)- Primary Ruptured infrarenal abdominal aortic aneurysm (AAA) ([facility]) Hypotension, unspecified hypotension type 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)- Primary PVD (peripheral vascular disease) ([facility]) Unspecified peripheral vascular disease PVD (peripheral vascular disease) ([facility])- Primary Unspecified peripheral vascular disease 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) Renal insufficiency Unspecified disorder of kidney and ureter 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)- Primary Leakage of unspecified vascular graft, sequela- Primary Juxtarenal abdominal aortic aneurysm, ruptured ([facility]) Leakage of unspecified vascular graft, sequela Familial hypercholesteremia Pure hypercholesterolemia Acute deep vein thrombosis (DVT) of axillary vein of left upper extremity ([facility]) Bilateral hip pain Pain in joint, pelvic region and thigh Clostridium difficile colitis Intestinal infection due to clostridium difficile Abdominal aortic aneurysm (AAA) without rupture, unspecified part ([facility])- Primary documented in this encounter [facility] Discharge instructions Additional Instructions Received Lasix 80 mg in the ED, urinated several times, feeling much better, on a nasal cannula, resolution of chest discomfort. Pulmonary edema on x-ray, needs dialysis, but Lasix should temporize until Monday morning. Another dose prescribed in case she needs it later. Be aware that we do not have the capability of dialyzing patients at [facility] until Monday after 7 AM 09/16/2024.[facility] Work Phone: Instructions* Attachments The following attachments cannot be sent through Care Everywhere. * Smoking Cessation: Health Benefits: General Info (Hungarian) documented in this encounterOhioHealthInstructions* Attachments The following attachments cannot be sent through Care Everywhere. * DVT (Deep Vein Thrombosis) (Hungarian) * Lung Cancer Screening: General Info (Hungarian) documented in this encounterFlioHealthInstructions* Attachments The following attachments cannot be sent through Care Everywhere. * PET Scan (Hungarian) * MRI: Head (Hungarian) documented in this encounterOhioHealthInstructions* Attachments The following attachments cannot be sent through Care Everywhere. * Factor V Leiden (Hungarian) * Warfarin Safety Tips (Hungarian) * Coumadin (Warfarin) - Consistent Vitamin K Diet: Care Instructions (Hungarian) * Warfarin: 5 Things You Can Do to Take It Safely: Video (Hungarian) * Direct Oral Anticoagulants: Non-Vitamin K Antagonist (Hungarian) documented in this encounterOhioHealthPatient's home Plan of care note* Visit Details Visit Type -SN Non-OASIS SOC Discipline -Half-Way Problems Problem Start Date Status Goals Interventions Assess and Instruct Home Visit Disciplines: Half-Way 11/06/2023 Active 1 goal linked to scheduled/documented intervention 4 goal interventions scheduled/documented in this visit Medication Management Disciplines: Half-Way 11/06/2023 Active 1 goal linked to scheduled/documented intervention 1 goal intervention scheduled/documented in this visit Pain Management Disciplines: Half-Way 11/06/2023 Active 1 goal linked to scheduled/documented [...] Management Goal:Pain Completed documented [facility] this encounter [facility]* Visit Details Visit Type -SN Non-OASIS SOC Discipline -Half-Way Problems Problem Start Date Status Goals Interventions Assess and Instruct Home Visit Disciplines: Half-Way 11/06/2023 Active 1 goal linked to scheduled/documented intervention 4 goal interventions scheduled/documented in this visit Medication Management Disciplines: Half-Way 11/06/2023 Active 1 goal linked to scheduled/documented intervention 1 goal intervention scheduled/documented in this visit Pain Management Disciplines: Half-Way 11/06/2023 Active 1 goal linked to scheduled/documented [...] Management Goal:Pain Completed documented [facility] this encounter [facility]* Visit Details Visit Type -SVP MONETIZATION Routine Discipline -Half-Way Problems Problem Start Date Status Goals Interventions Assess and Instruct Home Visit Disciplines: Half-Way 11/06/2023 Active 1 goal linked to scheduled/documented intervention 4 goal interventions scheduled/documented in this visit Medication Management Disciplines: Half-Way 11/06/2023 Active 1 goal linked to scheduled/documented intervention 1 goal intervention scheduled/documented in this visit Pain Management Disciplines: Half-Way 11/06/2023 Active 1 goal linked to scheduled/documented intervention 1 goal intervention scheduled/documented in this visit Lab/INR Disciplines: Half-Way 11/07/2023 Active 1 goal linked to scheduled/documented [...] with result of 2.3. Results called into [facility] and spoke with Pharm. Cisneros. No new orders for coumadin, patient is to continue same dose. Next scheduled INR Monday11/14/2023 documented in this encounter [facility]* Visit Details [...] 75% of instruction. documented in this encounter [facility]* Visit Details Visit Type -SN Non-OASIS SOC Discipline -Half-Way Problems Problem Start Date Status Goals Interventions Assess and Instruct Home Visit Disciplines: Half-Way 11/06/2023 Active 1 goal linked to scheduled/documented intervention 4 goal interventions scheduled/documented in this visit Medication Management Disciplines: Half-Way 11/06/2023 Active 1 goal linked to scheduled/documented intervention 1 goal intervention scheduled/documented in this visit Pain Management Disciplines: Half-Way 11/06/2023 Active 1 goal linked to scheduled/documented [...] Management Goal:Pain Completed documented in this encounter [facility]* Visit Details Visit Type -SVP MONETIZATION Routine Discipline -Half-Way Problems Problem Start Date Status Goals Interventions Assess and Instruct Home Visit Disciplines: Half-Way 11/06/2023 Active 1 goal linked to scheduled/documented intervention 4 goal interventions scheduled/documented in this visit Medication Management Disciplines: Half-Way 11/06/2023 Active 1 goal linked to scheduled/documented intervention 1 goal intervention scheduled/documented in this visit Pain Management Disciplines: Half-Way 11/06/2023 Active 1 goal linked to scheduled/documented [...] Details Visit Type -SN Non-OASIS SOC Discipline -Half-Way Problems Problem Start Date Status Goals Interventions Assess and Instruct Home Visit Disciplines: Half-Way 11/06/2023 Active 1 goal linked to scheduled/documented intervention 4 goal interventions scheduled/documented in this visit Medication Management Disciplines: Half-Way 11/06/2023 Active 1 goal linked to scheduled/documented intervention 1 goal intervention scheduled/documented in this visit Pain Management Disciplines: Half-Way 11/06/2023 Active 1 goal linked to scheduled/documented [...] Management Goal:Pain Completed [facility]* Visit Details Visit Type -DIRECTOR OF FOOD AND BEVERAGE SERVICES Routine Visi t Discipline -Physical Therapy Problems [...] intervention at next visit: Next visit with DIRECTOR OF FOOD AND BEVERAGE SERVICES to continue improving strength and balance in order to maximize safety with ambulation and functional transfers. Home Exercise Program Problem:Home Exercise Program Goal:Home Exercise Program Completed Patient reports: good understanding of HEP Clinician taught: patient Clinician instructed on: DIRECTOR OF FOOD AND BEVERAGE SERVICES provides skilled instruct to perform standing therex at FWW for support including marching, hip flexion, hs curls, and, DF/PF 10x each in order to increase strength in weight bearing, progress towards LTGs, and demo increased ease with ambulation. Pt required several seated rest break due to quickly becoming fatigued and dizzy. DIRECTOR OF FOOD AND BEVERAGE SERVICES monitored BP with readings all reamaining WNL at 124/70 and 106/67. Pt reports thats too low for me. DIRECTOR OF FOOD AND BEVERAGE SERVICES provides skilled instruct to perform seated therex [...] falls Clinician taught: patient Clinician instructed on: DIRECTOR OF FOOD AND BEVERAGE SERVICES provides skilled instruct to perform various transfers as outlined in transfers log requiring cues for appropriate technique and sequencing to maximize safety and to facilitate improved overall independence with ADLs. DIRECTOR OF FOOD AND [employer]EVERAGE [employer] provides skilled instruct to ambulate with FWW with DIRECTOR OF FOOD AND BEVERAGE SERVICES CGA during - provides cues/education to improve overall gait sequencing/pattern to maximize safety and decrease fall risk in order to progress independence towards STGs/LTGs. DIRECTOR OF FOOD AND BEVERAGE SERVICES provides skilled instruct to ascend/descend 7 stairs this date with B UE assist on HR and noUE assist on AD for support with step to pattern and CGA. Patient/caregiver is able to teach back 100% of instruction. documented [facility] this encounter [facility]* Visit Details [...] of care note* Visit Details Visit Type -DIRECTOR OF FOOD AND BEVERAGE SERVICES Routine Visi t Discipline -Physical Therapy Problems [...] intervention at next visit: Next visit with DIRECTOR OF FOOD AND BEVERAGE SERVICES to continue improving strength and balance in order to maximize safety with ambulation and functional transfers. Home Exercise Program Problem:Home Exercise Program Goal:Home Exercise Program Completed Patient reports: good understanding of HEP Clinician taught: patient Clinician instructed on: DIRECTOR OF FOOD AND BEVERAGE SERVICES provides skilled instruct to perform standing therex at FWW for support including marching, hip flexion, hs curls, and, DF/PF 10x each in order to increase strength in weight bearing, progress towards LTGs, and demo increased ease with ambulation. Pt required several seated rest break due to quickly becoming fatigued and dizzy. [employer] monitored BP with readings all reamaining WNL at 124/70 and 106/67. Pt reports thats too low for me. [employer] provides skilled instruct to perform seated therex [...] falls Clinician taught: patient Clinician instructed on: [employer] provides skilled instruct to perform various transfers as outlined in transfers log requiring cues for appropriate technique and sequencing to maximize safety and to facilitate improved overall independence with ADLs. [employer] provides skilled instruct to ambulate with FWW with [employer] CGA during - provides cues/education to improve overall gait sequencing/pattern to maximize safety and decrease fall risk in order to progress independence towards STGs/LTGs. [employer] provides skilled instruct to ascend/descend 7 stairs this date with B UE assist on HR and noUE assist on AD for support with step to pattern and CGA. Patient/caregiver is able to teach back 100% of instruction. [facility] Visit Details Visit Type -SVP MONETIZATION HH Routine Discipline -Half-Way Problems Problem Start Date Status Goals Interventions Assess and Instruct Home Visit Disciplines: Half-Way 11/06/2023 Active 1 goal linked to scheduled/documented intervention 4 goal interventions scheduled/documented in this visit Medication Management Disciplines: Half-Way 11/06/2023 Active 1 goal linked to scheduled/documented intervention 1 goal intervention scheduled/documented in this visit Pain Management Disciplines: Half-Way 11/06/2023 Active 1 goal linked to scheduled/documented [...] of care note* Visit Details Visit Type -[employer] Routine Visi t Discipline -Physical Therapy Problems [...] intervention at next visit: Next visit with [employer] to continue improving strength and balance in order to maximize safety with ambulation and functional transfers. Home Exercise Program Problem:Home Exercise Program Goal:Home Exercise Program Completed Patient reports: fair compliance Clinician taught: patient Clinician instructed on: [employer] provides skilled instruct to perform seated therex [...] falls Clinician taught: patient Clinician instructed on: [employer] provides skilled instruct to ascend/descend 7 stairs this date with B UE assist on HR and noUE assist on AD for support with step to pattern and CGA for safety. [employer] provides skilled instruct to perform STS transfers requiring VC for proper hand placement to rise and lower self from surface safely and for controlled descent upon sitting to ensure safety. Patient uses BUE to rise and lower self and utilizes FWW upon standing for support with good immediate standing balance displayed - patient achieve stand on first attempt 100% of time this date. [employer] provides skilled instruct to ambulate with FWW with [employer] CGA during - provides cues/education to improve [...] of care note* Visit Details Visit Type -[employer] Routine Visi t Discipline -Physical Therapy Problems [...] intervention at next visit: Next visit with [employer] to continue improving strength and balance in [...] of care note* Visit Details Visit Type -[employer] Routine Visi t Discipline -Physical Therapy Problems [...] intervention at next visit: Next visit with [employer] to continue improving strength and balance in order to maximize safety with ambulation and functional transfers. Home Exercise Program Problem:Home Exercise Program Goal:Home Exercise Program Completed Patient reports: fair compliance Clinician taught: patient Clinician instructed on: [employer] provides skilled instruct to perform standing therex at FWW for support including marching, hip flexion, hs curls, DF/PF, and mini squats 10x each in order to increase strength in weight bearing, progress towards LTGs, and demo increased ease with ambulation. Pt required several seated rest breaks between each exericse and reports my back hurts or im lightheaded. [employer] attempted to encourage pt to stand for prolonged time and pt declined. Patient/caregiver is able to teach back 100% of instruction. Instruct Mobility Problem:Mobility Goal:Mobility Completed Patient reports: no falls Clinician taught: patient Clinician instructed on: [employer] provides skilled instruct to ascend/descend 7 stairs this date with one UE assist on HR and no UE assist on AD for support with step to pattern and SBA. [employer] provides skilled instruct to ambulate 30ft 2x with FWW with [employer] SBA during - provides cues/education to improve overall gait sequencing/pattern to maximize safety and decrease fall risk in order to progress independence towards STGs/LTGs. Pt declined to amb further distances at a time and reports my back hurts. Pt will be obtaining a SPC to trial soon. [employer] provides skilled instruct to perform various transfers [...] 80% of instruction. [facility] Visit Details [...] 75% of instruction. [facility] Visit Details [...] 80% of instruction. [facility] Visit Details Visit Type -[employer] Routine Visi t Discipline -Physical Therapy Problems [...] intervention at next visit: Next visit with [employer] to continue improving strength and balance in order to maximize safety with ambulation and functional transfers. Home Exercise Program Problem:Home Exercise Program Goal:Home Exercise Program Completed Patient reports: fair compliance Clinician taught: patient Clinician instructed on: [employer] provides skilled instruct to perform seated therex [...] falls Clinician taught: patient Clinician instructed on: [employer] provides skilled instruct to ascend/descend 7 stairs this date with one UE assist on HR and no UE assist on AD for support with step to pattern and SBA. [employer] provides skilled instruct to perform consecutive STS [...] first attempt 100% of time this date. [employer] provides skilled instruct to ambulate with FWW with [employer] SBA during - provides cues/education to improve overall gait sequencing/pattern to maximize safety and decrease fall risk in order to progress independence towards STGs/LTGs. Pt reports she has a SPC coming today. Patient/caregiver is able to teach back 100% of instruction. [facility] Visit Details Visit Type -SVP MONETIZATION Routine Discipline -Half-Way Problems Problem Start Date Status Goals Interventions Assess and Instruct Home Visit Disciplines: Half-Way 11/06/2023 Active 1 goal linked to scheduled/documented intervention 4 goal interventions scheduled/documented in this visit Medication Management Disciplines: Half-Way 11/06/2023 Active 1 goal linked to scheduled/documented intervention 1 goal intervention scheduled/documented in this visit Pain Management Disciplines: Half-Way 11/06/2023 Active 1 goal linked to scheduled/documented [...] Management Goal:Pain Completed [facility] Visit [...] of care note* Visit Details Visit Type -[employer] Routine Visi t Discipline -Physical Therapy Problems [...] intervention at next visit: Next visit with [employer] to continue improving strength and balance in order to maximize safety with ambulation and functional transfers. Home Exercise Program Problem:Home Exercise Program Goal:Home Exercise Program Completed Patient reports: fair compliance Clinician taught: patient Clinician instructed on: [employer] provides skilled instruct to perform seated therex [...] falls Clinician taught: patient Clinician instructed on: [employer] provides skilled instruct to ascend/descend 7 stairs this date with B UE assist on HR and noUE assist on AD for support with step to pattern and CGA for safety. [employer] provides skilled instruct to perform STS transfers requiring VC for proper hand placement to rise and lower self from surface safely and for controlled descent upon sitting to ensure safety. Patient uses BUE to rise and lower self and utilizes FWW upon standing for support with good immediate standing balance displayed - patient achieve stand on first attempt 100% of time this date. [employer] provides skilled instruct to ambulate with FWW with [employer] CGA during - provides cues/education to improve overall gait sequencing/pattern to maximize safety and decrease fall risk in order to progress independence towards STGs/LTGs. Pt unable to amb further distances at a time due to becoming light headed while up. Patient/caregiver is able to teach back 100% of instruction. [facility] Visit Details Visit Type -[employer] Routine Visi t Discipline -Physical Therapy Problems [...] intervention at next visit: Next visit with [employer] to continue improving strength and balance in order to maximize safety with ambulation and functional transfers. Home Exercise Program Problem:Home Exercise Program Goal:Home Exercise Program Completed Patient reports: fair compliance Clinician taught: patient Clinician instructed on: [employer] provides skilled instruct to perform standing therex at FWW for support including marching, hip flexion, hs curls, DF/PF, and mini squats 10x each in order to increase strength in weight bearing, progress towards LTGs, and demo increased ease with ambulation. Pt required several seated rest breaks between each exericse and reports my back hurts or im lightheaded. [employer] attempted to encourage pt to stand for prolonged time and pt declined. Patient/caregiver is able to teach back 100% of instruction. Instruct Mobility Problem:Mobility Goal:Mobility Completed Patient reports: no falls Clinician taught: patient Clinician instructed on: [employer] provides skilled instruct to ascend/descend 7 stairs this date with one UE assist on HR and no UE assist on AD for support with step to pattern and SBA. [employer] provides skilled instruct to ambulate 30ft 2x with FWW with [employer] SBA during - provides cues/education to improve overall gait sequencing/pattern to maximize safety and decrease fall risk in order to progress independence towards STGs/LTGs. Pt declined to amb further distances at a time and reports my back hurts. Pt will be obtaining a SPC to trial soon. [employer] provides skilled instruct to perform various transfers as outlined in transfers log requiring cues for appropriate technique and sequencing to maximize safety and to facilitate improved overall independence with ADLs. Patient/caregiver is able to teach back 100% of instruction. [facility] Visit Details Visit Type -[employer] Routine Visi t Discipline -Physical Therapy Problems [...] intervention at next visit: Next visit with [employer] to continue improving strength and balance in order to maximize safety with ambulation and functional transfers. [facility] Visit Details Visit Type -[employer] Routine Visi t Discipline -Physical Therapy Problems [...] compliance Clinician taught: patient Clinician instructed on: [employer] provided extensive education on importance of compliance with HEP and purpose of completing daily in oder to facilitate strength, balance, and endurance in order to return to PLOF. Pt verbalized fair understanding. Patient/caregiver is able to teach back 100% of instruction. Instruct Mobility Problem:Mobility Goal:Mobility Completed Patient reports: no falls Clinician taught: patient Clinician instructed on: [employer] provides skilled instruct to ascend/descend 7 stairs this date with one UE assist on HR and one UE assist on SPC for support with step to pattern and SBA. [employer] provides skilled instruct to perform various transfers as outlined in transfers log requiring cues for appropriate technique and sequencing to maximize safety and to facilitate improved overall independence with ADLs. [employer] provides skilled instruct to ambulate 30ft 3x with SPC with [employer] CGA during - provides cues/education to improve [...] in. Pt was still in bed when [employer] arrived at 11:15am. pt required cues for proper sequencing of spc today with fair+ return. [employer] provides skilled instruct to perform consecutive STS [...] 100% of instruction. documented [facility]* Visit Details Visit Type -SN HH Routine Vi sit Discipline -Half-Way Problems Problem Start Date Status Goals Interventions Assess and Instruct Home Visit Disciplines: Half-Way 11/06/2023 Active 1 goal linked to scheduled/documented intervention 4 goal interventions scheduled/documented in this visit Medication Management Disciplines: Half-Way 11/06/2023 Active 1 goal linked to scheduled/documented intervention 1 goal intervention scheduled/documented in this visit Pain Management Disciplines: Half-Way 11/06/2023 Active 1 goal linked to scheduled/documented intervention 1 goal intervention scheduled/documented in this visit Lab/INR Disciplines: Half-Way 11/07/2023 Active 1 goal linked to scheduled/documented [...] Fingerstick Collection Date/Frequency: 12/13/23. Communicate results to [employer] coumadin clinic. Instruct on special precautions and when to contact the provider. If fingerstick INR is 4 or greater, perform a peripheral lab draw. [facility] Visit Details [...] Care Plan Scheduled [facility] Visit Details Visit Type -[employer] Routine Visi t Discipline -Physical Therapy Problems [...] compliance Clinician taught: patient Clinician instructed on: [employer] provided extensive education on importance of compliance with HEP and purpose of completing daily in oder to facilitate strength, balance, and endurance in order to return to PLOF. Pt verbalized fair understanding. Patient/caregiver is able to teach back 100% of instruction. Instruct Mobility Problem:Mobility Goal:Mobility Completed Patient reports: no falls Clinician taught: patient Clinician instructed on: [employer] provides skilled instruct to ascend/descend 7 stairs this date with one UE assist on HR and one UE assist on SPC for support with step to pattern and SBA. [employer] provides skilled instruct to perform various transfers as outlined in transfers log requiring cues for appropriate technique and sequencing to maximize safety and to facilitate improved overall independence with ADLs. [employer] provides skilled instruct to ambulate 30ft 3x with SPC with [employer] CGA during - provides cues/education to improve [...] in. Pt was still in bed when [employer] arrived at 11:15am. pt required cues for proper sequencing of spc today with fair+ return. [employer] provides skilled instruct to perform consecutive STS [...] 100% of instruction. documented [facility]* Visit Details Visit Type -SN HH Routine Vi sit Discipline -Half-Way Problems Problem Start Date Status Goals Interventions Assess and Instruct Home Visit Disciplines: Half-Way 11/06/2023 Active 1 goal linked to scheduled/documented intervention 4 goal interventions scheduled/documented in this visit Medication Management Disciplines: Half-Way 11/06/2023 Active 1 goal linked to scheduled/documented intervention 1 goal intervention scheduled/documented in this visit Pain Management Disciplines: Half-Way 11/06/2023 Active 1 goal linked to scheduled/documented intervention 1 goal intervention scheduled/documented in this visit Lab/INR Disciplines: Half-Way 11/07/2023 Active 1 goal linked to scheduled/documented intervention 1 goal intervention scheduled/documented in this visit Cardiac Disciplines: Half-Way 11/14/2023 Active 1 goal linked to scheduled/documented [...] 100% of instruction. [facility] Visit Details Visit Type -[employer] Routine Visi t Discipline -Physical Therapy Problems [...] intervention at next visit: Next visit with [employer] to continue improving strength and balance in order to maximize safety with ambulation and functional transfers. Home Exercise Program Problem:Home Exercise Program Goal:Home Exercise Program Completed Patient reports: poor compliance with HEP Clinician taught: patient Clinician instructed on: [employer] provides skilled instruct to peform various balance [...] AD. Clinician taught: patient Clinician instructed on: [employer] provides skilled instruct to ambulate 110ft with no AD with [employer] CGA-SBA during - provides cues/education to improve overall gait sequencing/pattern to maximize safety and decrease fall risk in order to progress independence towards STGs/LTGs. [employer] provides skilled instruct to perform consecutive STS [...] of care note* Visit Details Visit Type -[employer] Routine Visi t Discipline -Physical Therapy Problems [...] intervention at next visit: Next visit with [employer] to continue improving strength and balance in order to maximize safety with ambulation and functional transfers. Home Exercise Program Problem:Home Exercise Program Goal:Home Exercise Program Completed Patient reports: poor compliance Clinician taught: patient Clinician instructed on: [employer] provides skilled instruct to perform standing therex [...] falls Clinician taught: patient Clinician instructed on: [employer] provides skilled instruct to perform various transfers as outlined in transfers log requiring cues for appropriate technique and sequencing to maximize safety and to facilitate improved overall independence with ADLs. [employer] provides skilled instruct to ascend/descend 6 stairs this date with one UE assist on HR and no UE assist on AD for support with alternating pattern and SBA. [employer] provides skilled instruct to ambulate with no AD with [employer] SBA during - provides cues/education to improve overall gait sequencing/pattern to maximize safety and decrease fall risk in order to progress independence towards STGs/LTGs. Pt unable to amb further distances today and reports I can feel it in my legs their getting tired. Patient/caregiver is able to teach back 100% of instruction. [facility] Visit Details Visit Type -[employer] Routine Visi t Discipline -Physical Therapy Problems [...] intervention at next visit: Next visit with [employer] to continue improving strength and balance in order to maximize safety with ambulation and functional transfers. Home Exercise Program Problem:Home Exercise Program Goal:Home Exercise Program Completed Patient reports: poor compliance Clinician taught: patient Clinician instructed on: [employer] reviews HEP with patient. Patient demos good recall with technique and reports poor compliance with exercise program. Education provided on importance of performing HEP daily to facilitate strength and balance to return to PLOF. Patient/caregiver is able to teach back 100% of instruction. Instruct Mobility Problem:Mobility Goal:Mobility Completed Patient reports: no falls Clinician taught: patient Clinician instructed on: [employer] provides skilled instruct to ambulate with no AD with [employer] SBA during - provides cues/education to improve overall gait sequencing/pattern to maximize safety and decrease fall risk in order to progress independence towards STGs/LTGs. Pt required cues for increased step length/height. [employer] provides skilled instruct to perform consecutive STS [...] 100% of time this date with SBA. [employer] provides skilled instruct to peform various balance [...] 100% of instruction. [facility] Visit Details Visit Type -SVP MONETIZATION Routine Discipline -Half-Way Problems Problem Start Date Status Goals Interventions Assess and Instruct Home Visit Disciplines: Half-Way 11/06/2023 Active 1 goal linked to scheduled/documented intervention 4 goal interventions scheduled/documented in this visit Medication Management Disciplines: Half-Way 11/06/2023 Active 1 goal linked to scheduled/documented intervention 1 goal intervention scheduled/documented in this visit Pain Management Disciplines: Half-Way 11/06/2023 Active 1 goal linked to scheduled/documented [...] Management Goal:Pain Completed [facility] Visit Details Visit Type -[employer] Routine Visi t Discipline -Physical Therapy Problems [...] intervention at next visit: Next visit with [employer] to continue improving strength and balance in order to maximize safety with ambulation and functional transfers. Home Exercise Program Problem:Home Exercise Program Goal:Home Exercise Program Completed Patient reports: poor compliance Clinician taught: patient Clinician instructed on: [employer] provides skilled instruct to peform various balance [...] falls Clinician taught: patient Clinician instructed on: [employer] provides skilled instruct to perform consecutive STS [...] first attempt 100% of time this date. [employer] provides skilled instruct to ascend/descend 7 stairs this date with one UE assist on HR and no UE assist on AD for support with step to pattern and S. DIRECTOR OF FOOD AND BEVERAGE SERVICES provides skilled instruct to ambulate with no AD with DIRECTOR OF FOOD AND BEVERAGE SERVICES SBA during - provides cues/education to improve overall gait sequencing/pattern to maximize safety and decrease fall risk in order to progress independence towards STGs/LTGs. Patient/caregiver is able to teach back 100% of instruction. [facility] Visit Details Visit Type -DIRECTOR OF FOOD AND BEVERAGE SERVICES Routine Visi t Discipline -Physical Therapy Problems [...] 90% of instruction. Instruct Post-op Care Problem:Disease-[facility] Rehabilitation Goal:Post-Surgical Task already performed Instruct Mobility Problem:Mobility Goal:Mobility Completed Patient reports: ADLS with no AD Clinician taught: patient Clinician instructed on: DIRECTOR OF FOOD AND [employer]EVERAGE [employer] provides skilled instructions to ambulate short functional distances in home of 3 minute bout with no AD. Pt demo slow pacing with decreased step height and stride length with DIRECTOR OF FOOD AND BEVERAGE SERVICES providing CG/SBA during for safety. Verbal cues to improve posture, step height and stride length with 80% recall of proper energy conservation techniques such as posture, breathing and slowing pace. Fatigue reported after with some SOB and vitals WNL, noted DIRECTOR OF FOOD AND BEVERAGE [employer] attempted extending time bout to improve endurance however patient refused stating she needed sitting rest break. DIRECTOR OF FOOD AND BEVERAGE SERVICES provided instructions for patient to ascend and [...] 80% of instruction. [facility] Visit Details [...] Care Plan Scheduled [facility] Visit Details Visit Type -DIRECTOR OF [employer] Routine Visi t Discipline -Physical Therapy Problems [...] 90% of instruction. Instruct Post-op Care Problem:Disease-[facility] Rehabilitation Goal:Post-Surgical Task already performed Instruct Mobility Problem:Mobility Goal:Mobility Completed Patient reports: ADLS with no AD Clinician taught: patient Clinician instructed on: [employer]OR OF [employer] provides skilled instructions to ambulate short functional distances in home of 3 minute bout with no AD. Pt demo slow pacing with decreased step height and stride length with DIRECTOR OF FOOD [employer]EVERAGE [employer] providing CG/SBA during for safety. Verbal cues to improve posture, step height and stride length with 80% recall of proper energy conservation techniques such as posture, breathing and slowing pace. Fatigue reported after with some SOB and vitals WNL, noted [employer] OF FO[employer]EVER[employer] attempted extending time bout to improve endurance however patient refused stating she needed sitting rest break. DIRECTOR OF FOOD AND [employer]EVERAGE [employer] provided instructions for patient to ascend and [...] of care note* Visit Details Visit Type -DIRECTOR OF [employer] Routine Visi t Discipline -Physical Therapy Problems [...] intervention at next visit: Next visit with DIRECTOR OF FOOD AND [employer]EVERAGE [employer] to continue improving strength and balance in order to maximize safety with ambulation and functional transfers. Home Exercise Program Problem:Home Exercise Program Goal:Home Exercise Program Completed Patient reports: poor compliance Clinician taught: patient Clinician instructed on: DIRECTOR OF [employer] provides skilled instruct to peform various balance [...] falls Clinician taught: patient Clinician instructed on: DIRECT[employer] OF [employer] provides skilled instruct to perform consecutive STS [...] first attempt 100% of time this date. [employer] provides skilled instruct to ascend/descend 7 stairs this date with one UE assist on HR and no UE assist on AD for support with step to pattern and S. [employer] provides skilled instruct to ambulate with no AD with DIRECTOR OF FOOD [employer]EVERAGE [employer] SBA during - provides cues/education to improve overall gait sequencing/pattern to maximize safety and decrease fall risk in order to progress independence towards STGs/LTGs. Patient/caregiver is able to teach back 100% of instruction. [facility] Visit Details Visit Type -DIRECTOR OF [employer] Routine Visi t Discipline -Physical Therapy Problems [...] intervention at next visit: Next visit with DIRECTOR OF FOOD [employer]EVERAGE [employer] to continue improving strength and balance in order to maximize safety with ambulation and functional transfers. Home Exercise Program Problem:Home Exercise Program Goal:Home Exercise Program Completed Patient reports: poor compliance Clinician taught: patient Clinician instructed on: DIRECTOR OF FOOD AND BEVERAGE [employer] reviews HEP with patient. Patient demos good recall with technique and reports poor compliance with exercise program. Education provided on importance of performing HEP daily to facilitate strength and balance to return to PLOF. Patient/caregiver is able to teach back 100% of instruction. Instruct Mobility Problem:Mobility Goal:Mobility Completed Patient reports: no falls Clinician taught: patient Clinician instructed on: [employer] OF [employer] provides skilled instruct to ambulate with no AD with DIRECTOR OF FOOD [employer]EVERAGE [employer] SBA during - provides cues/education to improve overall gait sequencing/pattern to maximize safety and decrease fall risk in order to progress independence towards STGs/LTGs. Pt required cues for increased step length/height. [employer] provides skilled instruct to perform consecutive STS [...] 100% of time this date with SBA. DIRECTOR OF [employer] provides skilled instruct to peform various balance [...] 100% of instruction. [facility] Visit Details Visit Type -SVP MONETIZATION Routine Discipline -Half-Way Problems Problem Start Date Status Goals Interventions Assess and Instruct Home Visit Disciplines: Half-Way 11/06/2023 Active 1 goal linked to scheduled/documented intervention 4 goal interventions scheduled/documented in this visit Medication Management Disciplines: Half-Way 11/06/2023 Active 1 goal linked to scheduled/documented intervention 1 goal intervention scheduled/documented in this visit Pain Management Disciplines: Half-Way 11/06/2023 Active 1 goal linked to scheduled/documented [...] Management Goal:Pain Completed documented in this encounter [facility] Plan of care note* Visit Details Visit Type -[facility] [place] Discipline -Half-Way Problems Problem Start Date Status Goals Interventions Assess and Instruct Home Visit Disciplines: Half-Way 11/06/2023 Resolved on 01/03/2024 1 goal linked to scheduled/documented intervention 4 goal interventions scheduled/documented in this visit Medication Management Disciplines: Half-Way 11/06/2023 Resolved on 01/03/2024 1 goal linked to scheduled/documented intervention 1 goal intervention scheduled/documented in this visit Pain Management Disciplines: Half-Way 11/06/2023 Resolved on 01/03/2024 1 goal linked to scheduled/documented intervention 1 goal intervention scheduled/documented in this visit Lab/INR Disciplines: Half-Way 11/07/2023 Resolved on 01/03/2024 1 goal linked to scheduled/documented intervention 1 goal intervention scheduled/documented in this visit Cardiac Disciplines: Half-Way 11/14/2023 Resolved on 01/03/2024 1 goal linked [...] with result of 2.3. Results called into [facility] and spoke with Pharm. Cisneros. [...] back down because i just keep leaking. DIRECTOR OF FOOD AND BEVERAGE SERVICES checked pt vitals and BP running slightly high, but pt states she has not had a chance to take her medication yet. DIRECTOR OF FOOD AND BEVERAGE SERVICES notified PCP. Education provided on importance of [...] split level home [facility] Actions Homebound Status Criteria 1: Assistive Device(s): Cane and Walker Needs assistance of at least 1 to leave home Criteria 2: Patient confined to home due to limited ambulation related to cardiac sx Type of Home: split level / walkout DC patient once goals are met and max potential has been achieved through progressive interventions/education [facility] Actions Homebound Status Criteria 1: Assistive Device(s): Cane and Walker Needs assistance of at least 1 to leave home Criteria 2: Patient confined to home due to limited endurance related to major surgery/hospitalization and BP fluctuations. Type of Home: split level home [facility] Actions Homebound Status Criteria 1: Assistive Device(s): Cane and Walker Needs assistance of at least 1 to leave home Criteria 2: Patient confined to home due to limited endurance related to major surgery/hospitalization and BP fluctuations. Type of Home: split level home [facility] Actions Homebound Status [...] level / walkout [facility] Actions Homebound Status Criteria 1: Assistive Device(s): Cane and Walker Needs assistance of at least 1 to leave home Criteria 2: Patient confined to home due to limited endurance related to major surgery/hospitalization and BP fluctuations. Type of Home: split level home [facility] Actions Homebound Status [...] therapy is completed. [facility] Actions Homebound Status Criteria [...] through progressive interventions/education [facility] Actions Homebound Status Criteria 1: Assistive Device(s): Cane and Walker Needs assistance of at least 1 to leave home Criteria 2: Patient confined to home due to limited ambulation related to cardiac sx Type of Home: split level / walkout DC patient once goals are met and max potential has been achieved through progressive interventions/education [facility] Actions Homebound Status Criteria [...] back down because i just keep leaking. DIRECTOR OF FOOD AND BEVERAGE SERVICES checked pt vitals and BP running slightly high, but pt states she has not had a chance to take her medication yet. DIRECTOR OF FOOD AND BEVERAGE SERVICES notified PCP. Education provided on importance of [...] to toes documented. [facility] Narratives RA complete this [...] Rolling Walker Narratives INR called into the [facility] cou[facility]; spoke with Yenny. New coumadin [...] 12/26/23. Order for skin prep [facility] with [facility]. [facility] Actions CP assess, BP elevated, all other VS WNL. Dr Quispe aware of increased BP. Fingerstick INR of 4.4. Coumadin clinic updated. She is to hold tonights dose. Attempted two blood draws without success. Patient will go to [facility] tomorrow to get her BMP and [...] through progressive interventions/education [facility] Actions Homebound Status [...] reaching max potential [facility]* Narratives PT to d/c at this time, PT g oals achieved, patient present and agree to PT d/c. Education provided for continued HEP, fall prevention, DME use and future procurement of services prn. Patient starts work next Monday. Cleared to work by PCP. PT INR clinic next Monday. Unable to upload pictures of wounds. [facility] Actions Homebound Status [...] reaching max potential [facility] Actions Homebound Status [...] INR result of 2.1. Result called into [facility] coumadin clinic. No new orders received. Pt verbalizes understanding coumadin dose to remain the same. Pt reports she will be going back to work and requests to be DC from home care. Coumadin clinic made aware pt will need to be seen in office starting next week. [employer] manager made aware of pt request. Vital [...] day to rest. 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 July 23, 2024 8:43pm Living Will No August 14, 2024 7:33am Power of Suspect Artist No August 14 7:33am Living Will No July 18 11:13am Power of Suspect Artist Yes July 18, 2024 11:13am Name of Medical Power of Suspect Artist SRIRAM ALVARES July 18, 2024 11:13am Living Will Yes July 31, 2024 6:15pm Power of Suspect Artist Yes July 31 6:15pm Name of Medical Power of Suspect Artist SRIRAM July 31, 2024 6:15pm Advance Directive Response Recorded Date/ Time Living Will Yes July 23 8:43pm Do you have a Healthcare Power of Suspect Artist? Yes July 23, 2024 8:43pm Name of Medical Power of Suspect Artist ? July 23, 2024 8:43pm Living Will No August 14, 2024 12:54pm Do you have a Healthcare Power of Suspect Artist? No August 14, 2024 12:54pm Living Will No July 18 11:13am Do you have a Healthcare Power of Suspect Artist? Yes July 18, 2024 11:13am Name of Medical Power of Suspect Artist SRIRAM ALVARES July 18, 2024 11:13am Living Will Yes July 31, 2024 6:15pm Do you have a Healthcare Power of Suspect Artist? Yes July 31, 2024 6:15pm Name of Medical Power of Suspect Artist SRIRAM July 31, 2024 6:15pm Advance Directive Response Recorded Date/ Time Living Will Yes July 23 8:43pm Do you have a Healthcare Power of Suspect Artist? Yes July 23, 2024 8:43pm Name of Medical Power of Suspect Artist ? July 23, 2024 8:43pm Living Will No August 14, 2024 12:54pm Do you have a Healthcare Power of Suspect Artist? No August 14, 2024 12:54pm Living Will No September 15, 2024 4:31am Do you have a Healthcare Power of Suspect Artist? Yes September 15, 2024 4:31am Name of Medical Power of Suspect Artist sriram--sister September 15, 2024 4:31am Living Will No July 18 11:13am Do you have a Healthcare Power of Suspect Artist? Yes July 18, 2024 11:13am Name of Medical Power of Suspect Artist SRIRAM ALVARES July 18, 2024 11:13am Living Will Yes July 31, 2024 6:15pm Do you have a Healthcare Power of Suspect Artist? Yes July 31, 2024 6:15pm Name of Medical Power of Suspect Artist SRIRAM July 31, 2024 6:15pm Advance Directive Response Recorded Date/ Time Living Will Yes July 23 8:43pm Do you have a Healthcare Power of Suspect Artist? Yes July 23, 2024 8:43pm Name of Medical Power of Suspect Artist ? July 23, 2024 8:43pm Living Will No August 14, 2024 12:54pm Do you have a Healthcare Power of Suspect Artist? No August 14, 2024 12:54pm Living Will No September 15, 2024 4:31am Do you have a Healthcare Power of Suspect Artist? Yes September 15, 2024 4:31am Name of Medical Power of Suspect Artist sriram--sister September 15, 2024 4:31am Living Will Yes July 31, 2024 6:15pm Do you have a Healthcare Power of Suspect Artist? Yes July 31, 2024 6:15pm Name of Medical Power of Suspect Artist SRIRAM July 31, 2024 6:15pm Reason for Referral Status Reason Specialty Diagnoses / Procedures Referred By Contact Referred To Contact Authorized Physical Medicin e and Rehabilitation Diagnoses Chronic left hip pain Bambi Huynh MD [address] [place] [address] Sanjay Reyes, DO [address] [place] [id number] Status Reason Specialty Diagnoses / Procedures Referred By Contact Referred To Contact Authorized Physical Therapy / Rehabilitation Diagnoses Hip pain, bilateral Bambi Huynh MD [address] [place] [address] [facility] [address] [place] [address] Specialty Diagnoses / Procedures Referred By Contac t Referred To Contact Radiology Diagnoses Post-menopause Procedures XR Bone Density DEXA Axial Ying Quispe DO [address] [place] [address] Referral ID Status Reason Start Date Expiration Date V isits Requested Visits Authorized [id number] Authorized 11/18/2021 11/18/2022 1 1 Specialty Diagnoses / Procedures Referred By Contac t Referred To Contact Radiology Diagnoses Encounter for screening mammogram for malignant neoplasm of breast Procedures Mammography Screening Jose Bilateral Ying Quispe DO [address] [place] [address] Referral ID Status Reason Start Date Expiration Date V isits Requested Visits Authorized [id number] Authorized 11/18/2021 11/18/2022 1 1 Specialty Diagnoses / Procedures Referred By Contac t Referred To Contact Hematology and Oncology Diagnoses Acute deep vein thrombosis (DVT) of axillary vein of left upper extremity (HCC) Ying Quispe DO [address] [place] [address] Lita Gu MD [address] [place] [address] Referral ID Status Reason Start Date Expiration Date V isits Requested Visits Authorized [id number] Authorized 06/27/2022 06/27/2023 1 1 Specialty Diagnoses / Procedures Referred By Contac t Referred To Contact Radiology Diagnoses Acute deep vein thrombosis (DVT) of axillary vein of left upper extremity (HCC) Current smoker Cigarette smoker Screening for malignant neoplasm of respiratory organ Procedures CT Lung Cancer Screening Lita Gu MD [address] [place] [address] Referral ID Status Reason Start Date Expiration Date V isits Requested Visits Authorized [id number] New Request 09/14/2022 09/14/2023 1 1 Specialty Diagnoses / Procedures Referred By Contac t Referred To Contact Radiology Diagnoses History of deep venous thrombosis Current smoker Transaminitis Factor V Leiden mutation (HCC) Lymphadenopathy Decreased muscle strength Lung nodule seen on imaging study Procedures MR Brain With And Without Contrast Lita Gu MD [address] [place] [address] Referral ID Status Reason Start Date Expiration Date V isits Requested Visits Authorized [id number] New Request 10/18/2022 10/18/2023 1 1 Specialty Diagnoses / Procedures Referred By Contac t Referred To Contact Radiology Diagnoses History of deep venous thrombosis Current smoker Transaminitis Factor V Leiden mutation (HCC) Lymphadenopathy Decreased muscle strength Lung nodule seen on imaging study Procedures PET Tumor Imaging With CT Skull To Thigh Lita Gu MD [address] [place] [address] Referral ID Status Reason Start Date Expiration Date V isits Requested Visits Authorized [id number] New Request 10/18/2022 10/18/2023 4 4 Specialty Diagnoses / Procedures Referred By Contac t Referred To Contact Neurology Diagnoses History of deep venous thrombosis Current smoker Transaminitis Factor V Leiden mutation (HCC) Lymphadenopathy Decreased muscle strength Lung nodule seen on imaging study Lita Gu MD [address] [place] [address] [facility] [address] [place] [address] Medical Office Building, [address] [place] [address] Referral ID Status Reason Start Date Expiration Date Visits Requested Visits Authorized [id number] Authorized Specialty Services Required/Pat ient's Best Interest 09/27/2022 09/27/2023 1 1 Specialty Diagnoses / Procedures Referred By Contac t Referred To Contact Radiology Diagnoses History of deep venous thrombosis Lymphadenopathy Axillary lymphadenopathy Procedures CT Biopsy Lymph Node Lita Gu MD [address] [place] [address] Referral ID Status Reason Start Date Expiration Date V isits Requested Visits Authorized [id number] New Request 11/08/2022 11/08/2023 1 1 Specialty Diagnoses / Procedures Referred By Contact Referred To Contact Interventional Radiology Diagnoses History of deep venous thrombosis Lymphadenopathy Axillary lymphadenopathy Lita Gu MD [address] [place] [address] [place] [address] Referral ID Status Reason Start Date Expiration Date Visits Requested Visits Authorized [id number] Authorized Specialty Services Required/Pat ient's Best Interest 10/25/2022 10/25/2023 1 1 Specialty Diagnoses / Procedures Referred By Contact Referred To Contact Anticoagulation Monitoring Diagnoses History of deep venous thrombosis Reactive lymphadenopathy Factor V Leiden mutation (HCC) Lita Gu MD [address] [place] [address] [place] [id number] Referral ID Status Reason Start Date Expiration Date Visits Requested Visits Authorized [id number] Authorized Specialty Services Required/Pat ient's Best Interest [...] Expiration Date V isits Requested Visits Authorized [id number] Authorized 02/08/2023 02/08/2024 1 1 Specialty Diagnoses / Procedures Referred By Contac t Referred To Contact Cardiology Diagnoses Right-sided low back pain with right-sided sciatica, unspecified chronicity Procedures Segmental Doppler Lower Extremity Arterial Yfn Puckett Jr., DPM [address] [id number] [address] [facility] [address] [facility] [address] Referral ID Status Reason Start Date Expiration Date V isits Requested Visits Authorized [id number] Authorized 07/04/2023 07/03/2024 1 1 Specialty Diagnoses / Procedures Referred By Contac t Referred To Contact Neurosurgery Diagnoses Lumbosacral radiculopathy Yfn Puckett Jr., DPRosie [address] [place] [address] Nenita Khan MD [address] [address] Referral ID Status Reason Start Date Expiration Date V isits Requested Visits Authorized [id number] Authorized 08/01/2023 07/31/2024 1 1 Specialty Diagnoses / Procedures Referred By Contac t Referred To Contact Radiology Diagnoses Lumbosacral radiculopathy Weakness of right lower extremity Paresthesias Procedures MR Lumbar Spine Without Contrast Theresa Boykin PA-C [address] [address] Referral ID Status Reason Start Date Expiration Date V isits Requested Visits Authorized [id number] New Request 08/24/2023 08/23/2024 1 1 Specialty Diagnoses / Procedures Referred By Contac t Referred To Contact Neurology Diagnoses Weakness of right lower extremity Paresthesias Theresa Boykin PA-C [address] [facility] [address] [place] [address] Referral ID Status Reason Start Date Expiration Date V isits Requested Visits Authorized [id number] Authorized 08/24/2023 08/23/2024 1 1 Specialty Diagnoses / Procedures Referred By Contac t Referred To Contact Cardiology Diagnoses Ruptured abdominal aortic aneurysm (AAA), unspecified part (HCC) Procedures Ultrasound renal artery duplex, complete Tylor Kruger MD [address] [place] [address] Referral ID Status Reason Start Date Expiration Date V isits Requested Visits Authorized [id number] Authorized 11/11/2023 11/10/2024 1 1 Specialty Diagnoses / Procedures Referred By Contac t Referred To Contact Home Health Services Diagnoses Hypertension, unspecified type Orthostatic hypotension TUTU (acute kidney injury) (HCC) Debility Ruptured abdominal aortic aneurysm (AAA), unspecified part (HCC) Aftercare following surgery of the circulatory system Ying Quispe DO [address] [place] [address] [id number] Referral ID Status Reason Start Date Expiration Date V isits Requested Visits Authorized [id number] Authorized 11/02/2023 11/01/2024 1 1 Scheduling Instructions Pt must make office appt any with PCP Ying Quispe DO Specialty Diagnoses / Procedures Referred By Contac t Referred To Contact Radiology Diagnoses 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) PVD (peripheral vascular disease) (HCC) Procedures CT Angiogram Abdominal Aorta With Lower Extremity Tylor Kruger MD [address] [address] Referral ID Status Reason Start Date Expiration Date V isits Requested Visits Authorized [id number] New Request 11/18/2023 11/17/2024 1 1 Specialty Diagnoses / Procedures Referred By Contac t Referred To Contact Wound Care Diagnoses PVD (peripheral vascular disease) (HCC) Tylor Kruger MD 5[address] [facility] [address] [place] [address] Op Wound Care [address] [place] [phone] Referral ID Status Reason Start Date Expiration Date Visits Requested Visits Authorized [id number] Authorized Specialty Services Required/Pat ient's Best Interest 11/21/2023 11/20/2024 1 1 Specialty Diagnoses / Procedures Referred By Contac t Referred To Contact Cardiology Diagnoses PVD (peripheral vascular disease) (HCC) Ischemia of toe Procedures US Doppler ankle/brachial index Abigail Estrella, WELDING PANTOGRAPH MACHINE OPERATOR [address] [place] [address] [place] [address] Referral ID Status Reason Start Date Expiration Date V isits Requested Visits Authorized [id number] Authorized 11/22/2023 11/21/2024 1 1 Specialty Diagnoses / Procedures Referred By Contac t Referred To Contact Cardiology Diagnoses 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) Procedures US Abdominal Aortic Aneurysm Duplex (AAA) Sarath Rey MD [address] [place] [address] Referral ID Status Reason Start Date Expiration Date V isits Requested Visits Authorized [id number] Authorized 12/26/2023 12/25/2024 1 1 Specialty Diagnoses / Procedures Referred By Contac t Referred To Contact Cardiology Diagnoses Renal insufficiency Procedures Ultrasound renal artery stenosis hypertension limited Sarath Rey MD [address] [place] [address] Referral ID Status Reason Start Date Expiration Date V isits Requested Visits Authorized [id number] Authorized 12/26/2023 12/25/2024 1 1 Specialty Diagnoses / Procedures Referred By Joanne t Referred To Contact Nephrology Diagnoses Renal insufficiency Sarath Rey MD [address] [place] [address] Yisel Paiz MD [address] [place] [phone] Referral ID Status Reason Start Date Expiration Date Visits Requested Visits Authorized [id number] Authorized Specialty Services Required/Pat ient's Best Interest 12/26/2023 12/25/2024 1 1 Specialty Diagnoses / Procedures Referred By Joanne mercedes Referred To Contact Radiology Diagnoses 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) Postoperative leak Procedures CT Angiogram Chest Abdomen Pelvis Sarath Rey MD [address] [place] [phone] Referral ID Status Reason Start Date Expiration Date V isits Requested Visits Authorized [id number] New Request 01/05/2024 01/04/2025 1 1 History of Present Illness * Bambi Huynh MD - 2018 8:19 AM EST [facility] [address] [place] [id number] Scott Ob[place] 1960 [id number] HPI: 58-year-old female with hypothyroidism, hyperlipidemia, chronic [...] understand their medications Are you taking any dhui-vdi-uffceas medications or supplements? Patient Response: OTC Multivitamins and Molena Since last being seen in this office, have you seen another healthcare provider? Patient Response: Yes. If yes, where did you see this provider? Dentist in this encounter* Bambi Huynh MD - 09/14/2018 1:22 PM EDT [facility] [address] [place] [address] Scott K Mago 1960 [id number] HPI: 58-year-old female added to the schedule [...] appendicitis of course. Doubt focal colitis. Consider PHYSICAL THERAPY RESIDENT source but suspicion low forPID. Ovarian cyst [...] understand their medications Are you taking any jbkx-kax-xabhfha medications or supplements? Patient Response: OTC Multivitamins Since last being seen in this office, have you seen another healthcare provider? Patient Response: No documented in this encounter* Татьяна Jenkins MD - 09/15/2018 9:47 AM EDT [facility] PATIENT: Scott Winters Mago DATE [...] Jenkins MD - 10/12/2018 3:00 PM EDT [facility] PATIENT: Scott Winters Mago DATE [...] PATHOLOGY: Case Report Surgical Pathology Report Case: [id number] Authorizing Provider: Татьяна Jenkins MD Collected: 09/14/2018 10:48 PM Ordering Location: [facility] Periop Received: 09/17/2018 10:42 AM Pathologist: [...] Serial sections demonstrate a thickened appendiceal wall. Maintenance Carpenter sections of appendix are submitted in2 cassettes. JF;lat Gross examination performed at: [facility] - [address] [place] [address] Microscopic Description Microscopic examination is performed. ASSESSMENT: The patient is a 58-year-old female status post laparoscopic appendectomy 09/14/2018 PLAN: The patient is recovering well. Follow-up as needed documented in this encounter* Mendez Roy MD - 11/07/2018 7:38 AM EDT Dictation on: 11/07/2018 7:38 AM by: MENDEZ ROY [[id number]] documented in this encounter* Leanne Gomes PTA - 04/17/2019 5:30 PM EST [facility] DAILY TREATMENT NOTE Today's [...] Treatments: Physical Therapy Exercise Log - 04/17/19 9057 OTHER Precautions/Contraindications 535-614 Notes Supervising PT Fuad 8 Therapeutic Exercise (10288) Intervention SciFit L2, 5 minutes Parameters PT [...] Visit: cont Leanne Gomes PTA STATE LICENSE, [id number] documented in this encounter* Oh Crockett, YEVGENIY - 04/24/2019 1:45 PM EST [facility] DAILY TREATMENT NOTE Today's [...] Treatments: Physical Therapy Exercise Log - 04/24/19 8447 OTHER Notes Supervising PT Fuad 8 Therapeutic Exercise (32462) Intervention SciFit L2, 5 minutes Parameters PT [...] Cont POC Oh Crockett PTA STATE LICENSE, [id number] documented in this encounter* Fuad Pisano, PT - 05/01/2019 5:30 PM EST [facility] DAILY TREATMENT NOTE Today's [...] Treatments: Physical Therapy Exercise Log - 05/01/19 0426 OTHER Notes Supervising PT Fuad 8 Therapeutic Exercise (79950) Intervention SciFit L2, 5 minutes Parameters PT [...] Progress towards goals as expected. Discharge to [facility] Fuad Pisano PT STATE LICENSE, [id number] documented in this encounter* Rebeca Kaur CNP - 12/06/2019 11:10 AM EDT Patient Name: [facility] Location: Scott Obregon [address] [place] [phone] Date Of : Date Of Visit: 1960 12/06/2019 MRN# Provider: [id number] Rebeca Kaur CNP Chief Complaint Patient presents [...] Gets together: Three times a week Attends episcopal service: Not on file Active member of [...] nursing note reviewed. Exam conducted with a quarry plant crusher operator present (Dara SINGER). Constitutional: General: She is not in acute distress. Appearance: Normal appearance. She is well-developed. She is not ill-appearing, toxic-appearing or diaphoretic. HENT: Head: Normocephalic and atraumatic. Right Ear: Tympanic membrane, ear canal and external ear normal. Left Ear: Tympanic membrane, ear canal and external ear normal. Mouth/Throat: Lips: [place]. Mouth: Mucous membranes are moist. Pharynx: Uvula [...] include drinking lots of fluids and taking hdyq-sjh-cmklreg pain medicine. You will probably feel better [...] amount of fluids you drink. Take an cdro-bdh-qaxctmn pain medicine, such as acetaminophen (Tylenol), ibuprofen (Advil, Motrin),or naproxen (Aleve). Read and follow all instructions on the label. Before you use cough and cold medicines, check the label. These medicines may not be safe for youngchildren or for people with certain health problems. Be careful when taking vmpr-oqa-njsgkhf cold or flu medicines and Tylenol at [...] good. When should you call for help? [id number] anytime you think you may need emergency [...] Log into your personal health record on [email or web address]://[email or web address] and enter K520 in the Education box to learn more about Upper Respiratory Infection (Cold): Care Instructions. Current as of: July 22, 2019 Content Version: 12.5 [employer] Care instructions adapted under license by your healthcare professional. If you have questions about a medical condition or this instruction, always ask your healthcare professional. [employer] disclaims any warranty or liability for your use of this information. Coronavirus (COVID-19): Care Instructions Overview The coronavirus disease (COVID-19) is caused by a virus. Symptoms may include a fever, a cough, andshortness of breath. It mainly spreads jngzja-oe-qkrvql through droplets from coughing and sneezing. The [...] water aren't available, use an alcohol-based hand production statistical clerk. Don't share personal household items. These include bedding, towels, cups and glasses, and eating utensils. Wash laundry in the warmest water allowed for the fabric type, and dry it completely.It's okay to wash other people's laundry with yours. Clean and disinfect your home every day. Use household fine sander and disinfectant wipes or sprays. Take special care to clean things that you grab with your hands. These include doorknobs, remote controls, phones, and handles on your refrigerator and microwave. And don't forget countertops, tabletops, bathrooms, and computer keyboards. When should you call for help? [id number] anytime you think you may need emergency [...] of: October 25, 2019 Content Version: 12.5 [employer] Care instructions adapted under license by your healthcare professional. If you have questions about a medical condition or this instruction, always ask your healthcare professional. [employer] disclaims any warranty or liability for your [...] Log into your personal health record on [email or web address]://[employer] and enter O319 in the Education box to learn more about Learning About Benefits From Quitting Smoking. Current as of: August 08, 2019 Content Version: 12.5 [employer] Care instructions adapted under license by your healthcare professional. If you have questions about a medical condition or this instruction, always ask your healthcare professional. [employer] disclaims any warranty or liability for your [...] - 12/06/2019 11:10 AM EDT Patient Name: [facility] Location: [place] [address] [place] [phone] Date Of : Date Of Visit: 1960 12/06/2019 MRN# Provider: [id number] Rebeca Kaur CNP Chief Complaint Patient presents [...] Gets together: Three times a week Attends episcopal service: Not on file Active member of [...] nursing note reviewed. Exam conducted with a quarry plant crusher operator present (Dara SINGER). Constitutional: General: She is not in acute distress. Appearance: Normal appearance. She is well-developed. She is not ill-appearing, toxic-appearing or diaphoretic. HENT: Head: Normocephalic and atraumatic. Right Ear: Tympanic membrane, ear canal and external ear normal. Left Ear: Tympanic membrane, ear canal and external ear normal. Mouth/Throat: Lips: [place]. Mouth: Mucous membranes are moist. Pharynx: Uvula [...] include drinking lots of fluids and taking tqsi-eqz-oavcpme pain medicine. You will probably feel better [...] amount of fluids you drink. Take an zdse-uan-yvalyxx pain medicine, such as acetaminophen (Tylenol), ibuprofen (Advil, Motrin),or naproxen (Aleve). Read and follow all instructions on the label. Before you use cough and cold medicines, check the label. These medicines may not be safe for youngchildren or for people with certain health problems. Be careful when taking qoxv-tgq-hesuofc cold or flu medicines and Tylenol at [...] good. When should you call for help? [id number] anytime you think you may need emergency [...] Log into your personal health record on [email or web address]://[email or web address] and enter K520 in the Education box to learn more about Upper Respiratory Infection (Cold): Care Instructions. Current as of: July 22, 2019 Content Version: 12.5 [employer] Care instructions adapted under license by your healthcare professional. If you have questions about a medical condition or this instruction, always ask your healthcare professional. [employer] disclaims any warranty or liability for your use of this information. Coronavirus (COVID-19): Care Instructions Overview The coronavirus disease (COVID-19) is caused by a virus. Symptoms may include a fever, a cough, andshortness of breath. It mainly spreads ssjygt-de-rrfbei through droplets from coughing and sneezing. The [...] water aren't available, use an alcohol-based hand production statistical clerk. Don't share personal household items. These include bedding, towels, cups and glasses, and eating utensils. Wash laundry in the warmest water allowed for the fabric type, and dry it completely.It's okay to wash other people's laundry with yours. Clean and disinfect your home every day. Use household fine sander and disinfectant wipes or sprays. Take special care to clean things that you grab with your hands. These include doorknobs, remote controls, phones, and handles on your refrigerator and microwave. And don't forget countertops, tabletops, bathrooms, and computer keyboards. When should you call for help? [id number] anytime you think you may need emergency [...] of: October 25, 2019 Content Version: 12.5 [employer] Care instructions adapted under license by your healthcare professional. If you have questions about a medical condition or this instruction, always ask your healthcare professional. [employer] disclaims any warranty or liability for your [...] Log into your personal health record on https://[employer] and enter O319 in the Education box to learn more about Learning About Benefits From Quitting Smoking. Current as of: August 08, 2019 Content Version: 12.5 7897-2800 [employer] Care instructions adapted under license by your healthcare professional. If you have questions about a medical condition or this instruction, always ask your healthcare professional. [employer] disclaims any warranty or liability for your [...] Pisano, PT - 04/08/2019 5:30 PM EST [facility] Evaluation Today's Date 04/09/2019 [...] to walk 7 miles daily and goto [employer]. Now she isn't able to do any of this. 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 Previous Treatment for this condition: Injections [...] and get back to exercise Social History Restorationism, social, or cultural considerations to be made [...] Treatments: Physical Therapy Exercise Log - 04/09/19 1127 OTHER Notes Supervising PT Fuad Mcclelland Therapeutic Exercise (59986) Intervention SciFit Parameters PT performed STM glutes [...] functional abilities Fuad Pisano PT STATE LICENSE, [id number] documented in this encounter* Tisha Do, YEVGENIY - 04/22/2019 5:30 PM EST [facility] DAILY TREATMENT NOTE Today's [...] Treatments: Physical Therapy Exercise Log - 04/22/19 1906 OTHER Precautions/Contraindications 535-6:18 concurrent care Notes Supervising PT Fuad 8 Therapeutic Exercise (02901) Intervention SciFit L2, 5 minutes Parameters PT [...] as able. Tisha Do PTA STATE LICENSE, [id number] documented in this encounter* Bambi Huynh MD [...] cyst versusother. She plans to attend either [facility] or [place]. documented in this encounter* Bambi Huynh MD - 01/14/2019 4:29 PM EDT [facility] [place] [address] [place], [place] [address] Scott Stringererd 1960 [id number] HPI: 58-year-old female with hypothyroidism, hyperlipidemia, bilateral [...] Gets together: Three times a week Attends episcopal service: Not on file Active member of [...] in about 8 weeks (around 03/11/2019). Bambi Hyunh MD documented in this encounter* Tisha Do, DIRECTOR OF FOOD AND BEVERAGE SERVICES - 04/15/2019 5:30 PM EST [facility] DAILY TREATMENT NOTE Today's [...] Treatments: Physical Therapy Exercise Log - 04/15/19 8283 OTHER Precautions/Contraindications 535-6:17 concurrent Notes Supervising PT Fuad 8 Therapeutic Exercise (66989) Intervention SciFit L2, 5 minutes NT Parameters [...] per POC. Tisha Do PTA STATE LICENSE, [id number] documented in this encounter* Tisha Do PTA - 04/29/2019 5:30 PM EST [facility] DAILY TREATMENT NOTE Today's [...] Treatments: Physical Therapy Exercise Log - 04/29/19 4443 OTHER Notes Supervising PT Fuad Mcclelland Vitals 5:35-6:25 Therapeutic Exercise (40922) Intervention SciFit L2, 5 minutes Parameters PT [...] a difference. Tisha Do PTA STATE LICENSE, [id number] documented in this encounter* Bambi Huynh MD - 03/25/2019 4:39 PM EDT [facility] [place] [address] [place] [id number] Scott Obregon 1960 [id number] HPI: Return visit. Patient with hypothyroidism. Has [...] Scott Obregon Date of : 1960 Site: [facility] Family Provider: Bambi Huynh MD Admit [...] Physician(s) Family Provider: Bambi Huynh MD, Address: [address] [place] / [facility] [address] Follow Up: No follow-up provider specified. Additional [...] Log into your personal health record on [email or web address]://[employer] and enter J277 in the Education box to learn more about Learning About Appendectomy. Current as of: April 04, 2018 Content Version: 12.0 5200-9853 [employer] Care instructions adapted under license by your healthcare professional. If you have questions about a medical condition or this instruction, always ask your healthcare professional. [employer] disclaims any warranty or liability for your use of this information. documented in this encounter Instructions * Patient Instructions* Rebeca Kaur, [facility] - 12/06/2019 11:46 AM EDT Upper Respiratory [...] include drinking lots of fluids and taking zsio-rdc-vxizapz pain medicine. You will probably feel better [...] amount of fluids you drink. Take an amtj-atl-pnkfjpf pain medicine, such as acetaminophen (Tylenol), ibuprofen (Advil, Motrin),or naproxen (Aleve). Read and follow all instructions on the label. Before you use cough and cold medicines, check the label. These medicines may not be safe for youngchildren or for people with certain health problems. Be careful when taking hiuh-puj-dfvfacx cold or flu medicines and Tylenol at [...] good. When should you call for help? [id number] anytime you think you may need emergency [...] Log into your personal health record on [email or web address] and enter K520 in the Education box to learn more about Upper Respiratory Infection (Cold): Care Instructions. Current as of: July 22, 2019 Content Version: 12.5 [employer] Care instructions adapted under license by your healthcare professional. If you have questions about a medical condition or this instruction, always ask your healthcare professional. [employer] disclaims any warranty or liability for your use of this information. Coronavirus (COVID-19): Care Instructions Overview The coronavirus disease (COVID-19) is caused by a virus. Symptoms may include a fever, a cough, andshortness of breath. It mainly spreads hchxto-cj-ubzkjr through droplets from coughing and sneezing. The [...] water aren't available, use an alcohol-based hand production statistical clerk. Don't share personal household items. These include bedding, towels, cups and glasses, and eating utensils. Wash laundry in the warmest water allowed for the fabric type, and dry it completely.It's okay to wash other people's laundry with yours. Clean and disinfect your home every day. Use household fine sander and disinfectant wipes or sprays. Take special care to clean things that you grab with your hands. These include doorknobs, remote controls, phones, and handles on your refrigerator and microwave. And don't forget countertops, tabletops, bathrooms, and computer keyboards. When should you call for help? [id number] anytime you think you may need emergency [...] of: October 25, 2019 Content Version: 12.5 [employer] Care instructions adapted under license by your healthcare professional. If you have questions about a medical condition or this instruction, always ask your healthcare professional. [employer] disclaims any warranty or liability for your [...] Log into your personal health record on https://[employer] and enter O319 in the Education box to learn more about Learning About Benefits From Quitting Smoking. Current as of: August 08, 2019 Content Version: .[id number] [employer] Care instructions adapted under license by your healthcare professional. If you have questions about a medical condition or this instruction, always ask your healthcare professional. [employer] disclaims any warranty or liability for your use of this information. Isolate yourself at home until your test results are available. You will be notified of your COVID results and given further instructions. ER if you develop a high fever, shaking chills, vomiting, chest pain, shortness of breath or loss of consciousness. Please consider smoking cessation. documented in this encounter* Patient Instructions* Rebeca Karu CNP - 12/06/2019 11:46 AM EDT Upper [...] include drinking lots of fluids and taking tlzn-ekd-iuilqro pain medicine. You will probably feel better [...] amount of fluids you drink. Take an wtjc-gpq-rtqfslc pain medicine, such as acetaminophen (Tylenol), ibuprofen (Advil, Motrin),or naproxen (Aleve). Read and follow all instructions on the label. Before you use cough and cold medicines, check the label. These medicines may not be safe for youngchildren or for people with certain health problems. Be careful when taking tuak-klr-jxqubwh cold or flu medicines and Tylenol at [...] good. When should you call for help? [id number] anytime you think you may need emergency [...] Log into your personal health record on [email or web address]://[email or web address] and enter K520 in the Education box to learn more about Upper Respiratory Infection (Cold): Care Instructions. Current as of: July 22, 2019 Content Version: 12.5 [employer] Care instructions adapted under license by your healthcare professional. If you have questions about a medical condition or this instruction, always ask your healthcare professional. [employer] disclaims any warranty or liability for your use of this information. Coronavirus (COVID-19): Care Instructions Overview The coronavirus disease (COVID-19) is caused by a virus. Symptoms may include a fever, a cough, andshortness of breath. It mainly spreads syfiiy-lp-xanfak through droplets from coughing and sneezing. The [...] water aren't available, use an alcohol-based hand production statistical clerk. Don't share personal household items. These include bedding, towels, cups and glasses, and eating utensils. Wash laundry in the warmest water allowed for the fabric type, and dry it completely.It's okay to wash other people's laundry with yours. Clean and disinfect your home every day. Use household fine sander and disinfectant wipes or sprays. Take special care to clean things that you grab with your hands. These include doorknobs, remote controls, phones, and handles on your refrigerator and microwave. And don't forget countertops, tabletops, bathrooms, and computer keyboards. When should you call for help? [id number] anytime you think you may need emergency [...] of: October 25, 2019 Content Version: 12.5 [employer] Care instructions adapted under license by your healthcare professional. If you have questions about a medical condition or this instruction, always ask your healthcare professional. [employer] disclaims any warranty or liability for your [...] Log into your personal health record on [email or web address] and enter O319 in the Education box to learn more about Learning About Benefits From Quitting Smoking. Current as of: August 08, 2019 Content Version: 12.5 [employer] Care instructions adapted under license by your healthcare professional. If you have questions about a medical condition or this instruction, always ask your healthcare professional. [employer] disclaims any warranty or liability for your [...] 31 3:42pm Acute upper gastrointestinal bleeding [facility] 2024 3:42pm Anemia July 31, 2024 [...] July 31 3:42pm Acute upper gastrointestinal bleeding [facility] 2024 3:42pm Anemia July 31, 2024 3:42 [...] July 31 3:42pm Acute upper gastrointestinal bleeding [facility] 2024 3:42pm Anemia July 31, 2024 3:42 [...] 08, 2024 6:1 5pm UPPER GI BLEED March 14th, 2025 8:0 5am UPPER GI BLEED August 10, [...] 31 3:42pm Acute upper gastrointestinal bleeding [facility] 2024 3:42pm Anemia July 31, 2024 [...] :45am LABWORK September 18, 2024 5:0 0am Chief Complaint Admit Date SEVERE MALNUTRITION July 23, 2024 5:23pm SEVERE MALNUTRITION July 28, 2024 7:21 am [...] am LABWORK September 02, 2024 5:00 am [facility] LAB WORK September 09, 2024 5 :35am sob September 15, 2024 4:2 2am [facility] LAB WORK September 16, 2024 7 :45am LABWORK September 18, 2024 5:0 0am [facility] LAB WORK September 23, 2024 5 :00am [facility] LAB WORK October 30, 2024 5:4 5am [facility] LAB WORK November 04, 2024 5:0 0am [facility] LAB WORK November 05, 2024 6: 50am PVD November 20, 2024 4:30 pm Additional Source Comments INFORMATION SOURCE (unrecogn ized section and content) DATE CREATED AUTHOR 11/16/2017 [facility] DATE CREATED AUTHOR AUTHOR'S ORGANIZ ATION 12/20/2019 [facility] DATE CREATED AUTHOR AUTHOR'S ORGANIZ ATION 10/26/2023 [facility] DATE CREATED AUTHOR AUTHOR'S ORGANIZ ATION 11/02/2023 [facility] DATE CREATED AUTHOR AUTHOR'S ORGANIZ ATION 12/25/2023 [facility] DATE CREATED AUTHOR AUTHOR'S ORGANIZ ATION 01/05/2024 [facility] DATE CREATED AUTHOR AUTHOR'S ORGANIZ ATION 05/15/2024 [facility] DATE CREATED AUTHOR AUTHOR'S ORGANIZ ATION 06/27/2024 [facility] DATE CREATED AUTHOR AUTHOR'S ORGANIZ ATION 07/21/2024 [facility] DATE CREATED AUTHOR AUTHOR'S ORGANIZ ATION 11/25/2024 [facility] Reason for Visit (unrecogniz ed section and content) Reason Comments Follow-up 6 months Reason Comments Abdominal Pain RLQ Dysuria Cold Sweats Reason Comments Abdominal Pain Reason Comments Post-op monocyrl and steri s trips Reason Comments Physical Therapy Status Reason Specialty Diagnoses / Procedures Referred By Contact Referred To Contact Authorized Physical Therapy / Rehabilitation Diagnoses Hip pain, bilateral Bambi Huynh MD [facility] Mary Ann Phillip [address] [address] [facility] [place] [address] [place] [id number] Reason Comments Cough congestion, runny no se, symptoms x 1 week Reason Comments Follow-up 6 months Reason Comments Follow-up Reason Comments Hypothyroidism needs medication ref ills/ hasn't been seen since 2018 Reason Comments Plantar Warts Possible wart right heel. She will dig out then they will grow back. Cyst Possible cyst left a h x 1 year. Bumps are hard. Reason Comments Follow-up Follow up for ani payton x on right heel. Pt states she also had some lab work done for tingling in feet Reason Comments Arm Swelling Specialty Diagnoses / Procedures Referred By Joanne mercedes Referred To Contact Diagnoses Acute deep vein thrombosis (DVT) of axillary vein of left upper extremity (HCC) Chest pain, unspecified type Referral ID Status Reason Start Date Expiration Date Visits Re quested Visits Authorized [id number] 1 1 Reason Comments Medication Refill Reason Comments DVT New consult from Dr. Quispe Specialty Diagnoses / Procedures Referred By Contadriana t Referred To Contact Hematology and Oncology Diagnoses Acute deep vein thrombosis (DVT) of axillary vein of left upper extremity (HCC) Ying Quispe, [address] [place] [address] iLta Gu MD [address] [place] [address] Referral ID Status Reason Start Date Expiration Date Visits Re quested Visits Authorized [id number] Closed 06/27/2022 06/27/2023 1 1 Reason Onset [...] thrombosis Reactive lymphadenopathy Factor V Leiden mutation ([facility]) Lita Gu MD [address] [place] [address] [facility] [address] [place] [address] [place] [address] Referral ID Status Reason Start Date Expiration Date Visits Requested Visits Authorized [id number] Pending Review Specialty Services Required/Pat ient's Best [...] Lumbosacral radiculopathy Yfn Puckett Jr., DPM [address] [place] [address] Nenita Khan MD [address] [address] Referral ID Status Reason Start Date Expiration Date Visits Re quested Visits Authorized [id number] Closed 08/01/2023 07/31/2024 1 1 Reason Comments Follow-up S/p EVAR, right perry l stenting Specialty Diagnoses / Procedures Referred By Contac t Referred To Contact Referral ID Status Reason Start Date Expiration Date Visits Re quested Visits Authorized [id number] 1 1 Specialty Diagnoses / Procedures Referred By Contact Referred To Contact Anticoagulation Monitoring Diagnoses History of deep venous thrombosis Reactive lymphadenopathy Factor V Leiden mutation (HCC) Lita Gu MD [address] [facility] [place] [address] [facility] [address] [place] [address] Dr Caruso [address] [place] [phone] Referral ID Status Reason Start Date Expiration Date V isits Requested Visits Authorized [id number] Pending Review 12/12/2022 02/26/2024 999 999 Reason Comments Follow-up 1 month hospital fol low up s/p Emergent EVAR with renal stenting with Dr. Guerra Reason Onset Date Comments Medication Refill 11/20/2023 Reason Comments Wound Check Specialty Diagnoses / Procedures Referred By Contac t Referred To Contact Wound Care Diagnoses PVD (peripheral vascular disease) ([facility]) Tylor Kruger MD [address] [facility] [address] [place] [address] Op Wound Care [address] [place] [address] Referral ID Status Reason Start Date Expiration Date V isits Requested Visits Authorized [id number] Closed Specialty Services Required/Romi ent's Best Interest 11/21/2023 11/20/2024 1 1 Reason Onset Date Comments Medication Refill 12/06/2023 Referral ID Status Reason Start Date Expiration Date V isits Requested Visits Authorized [id number] Pending Review 12/12/2022 04/10/2025 999 999 Reason [...] PT. Karolyn BECERRA, called for transport to [facility], ETA 25 minutes. Gloria, Transfer center, called to advise that alternate transportation has been arranged. Pt updated on status of EMS arrival. JACKIE Castro, called with 90 minute ETA for [facility]. This nurse to try to turnover to [facility] ED PROVIDER NOTE [facility] NAME: Scott Obregon AGE: 58 y.o. : 1960 VISIT DATE: 09/14/2018 CSN: [id number] PCP: Bambi Huynh MD Chief Complaint Patient [...] Patient has been accepted by surgery at [facility]. Patient will be transferred in stable [...] Condition Comment Transfer to Another Facility Scott Singh Obregon to be transferred to [facility] Follow-up Information Follow-up information has not been specified. Contact information for after-discharge care Follow-up information has not been specified. Dewayne Barlow MD 09/14/182 Pt updated on pending results, provided with [...] PT to OR PT from transfer from [facility] surgery Bed: 01 Expected date: 09/14/18 Expected time: 9:22 PM Means of arrival: Comments: TRANSFER documented in this encounter Татьяна Jenkins MD - 09/14/2018 10:26 PM EDT H&P Notes (unrecognized sect ion and content) [facility] SURGICAL HISTORY & PHYSICAL/CONSULTATION [...] year old female who was transferred from [facility] for acute appendicitis. Her primary complaint is [...] Surgical history: none Social history: works as [employer] at [employer] -Place of residence (home, NSF, etc): Home [...] July 26, 2024 Dr. Sadia Phoenix , Emergency Provider Active S tart: July 26, [...] S tart: July 28, 2024 Dr. Remedios Keslser DO Other Provider Active Start : July [...] Active Start: August 08, 2024 Dr. Noah Aevry MD Referring Provider Active S tart: August [...] Active Star t: August 09, 2024 Dr. Mra Mead MD Other Provider Active St art: [...] St art: August 13, 2024 Dr. Nikolas aMgaña MD Attending Provider Active Start: August 13, [...] Provider Active Start: August 13, 2024 Dr. aMr Mead MD Other Provider Active St art: August 13, 2024 Dr. Nikolas Magaña MD Attending Provider Active Start: August 13, 2024 Dr. Nikolas Magaña MD Other Provider Active Sta rt: August 13, 2024 Dr. Judd Galvin DO Other Provider Active Star t: August 13, 2024 Morphology Teacher Relationship Specialty Start Date End Date Bambi Huynh MD [address] [place] [address] Dr [address] [place] [address] PCP - [facility] Provider - MMO Commercial 03/29/18 05/28/50 Ying Quispe, DO [address] [place] [address] PCP - General Family Medicine 05/12/21 Morphology Teacher Relationship Specialty Start Date End Date Ying Quispe DO [address] [place] [address] PCP - General Family Medicine 05/12/21 Morphology Teacher Relationship Specialty Start Date End Date Ying Quispe, DO [address] [place] [address] PCP - General Family Medicine 05/12/21 Morphology Teacher Relationship Specialty Start Date End Date Ying Quispe, DO [address] [place] [address] PCP - General Family Medicine 05/12/21 Morphology Teacher Relationship Specialty Start Date End Date Ying Quispe, DO [address] [place] [address] PCP - General Family Medicine 05/12/21 Morphology Teacher Relationship Specialty Start Date End Date Ying Quispe, DO [address] [place] [address] PCP - General Family Medicine 05/12/21 Morphology Teacher Relationship Specialty Start Date End Date Ying Quispe, DO [address] [place] [address] PCP - General Family Medicine 05/12/21 Ying Quispe, DO [address] [place] [address] PCP - PK Attributed Provider - [facility] 05/29/21 05/28/99 Morphology Teacher Relationship Specialty Start Date End Date Ying Quispe, DO [address] [place] [address] PCP - General Family Medicine 05/12/21 Ying Quispe, DO [address] [place] [address] PCP - PK Attributed Provider - [facility] 05/29/21 05/28/99 Morphology Teacher Relationship Specialty Start Date End Date Bambi Huynh MD PCP - General Internal Medicine 06/10/16 04/07/21 Makenzie Bajwa, WELDING PANTOGRAPH MACHINE OPERATOR [address] [place] [address] [place] [address], [place] [address] PCP - General Nurse Practitioner 04/08/21 05/11/21 Ying Quispe, DO [address] [place] [address] PCP - General Family Medicine 05/12/21 Ying Quispe, DO [address] [place] [address] PCP - PK Attributed Provider - [employer] 03/29/18 08/25/21 Ying Quispe, DO [address] [place] [address] PCP - PK Attributed Provider - [facility] 05/29/21 05/28/99 Morphology Teacher Relationship Specialty Start Date End Date BrittaneyYing, DO [address] [place] [address] PCP - General Family Medicine 05/12/21 BrittaneyYing, DO [address] [place] [address] PCP - PK Attributed Provider - [facility] 05/29/21 05/28/99 Codie Garcia financial services sales representativeInformatics Application Analyst 06/13/22 06/13/22 Morphology Teacher Relationship Specialty Start Date End Date BrittaneyYing, DO [address] [place] [address] PCP - General Family Medicine 05/12/21 La MiradaKodakel Zahra, DO [address] [place] [address] PCP - PK Attributed Provider - [facility] 05/29/21 05/28/50 Morphology Teacher Relationship Specialty Start Date End Date BrittaneyKodakel Zahra, DO [address] [place] [address] PCP - General Family Medicine 05/12/21 Ying Quispe DO [address] [place] [address] PCP - PK Attributed Provider - [facility] 05/29/21 05/28/50 Morphology Teacher Relationship Specialty Start Date End Date Ying Quispe DO [address] [place] [address] PCP - General Family Medicine 05/12/21 Ying Quispe DO [address] [place] [address] PCP - PK Attributed Provider - [facility] 05/29/21 05/28/50 Morphology Teacher Relationship Specialty Start Date End Date Ying Quispe DO [address] [place] [address] PCP - General Family Medicine 05/12/21 Ying Quispe DO [address] [place] [address] PCP - PK Attributed Provider - [facility] 05/29/21 05/28/50 Morphology Teacher Relationship Specialty Start Date End Date Ying Quispe DO [address] [place] [address] PCP - General Family Medicine 05/12/21 Ying Quispe DO [address] [place] [address] PCP - PK Attributed Provider - [facility] 05/29/21 05/28/50 Morphology Teacher Relationship Specialty Start Date End Date Ying Quispe DO [address] [place] [address] PCP - General Family Medicine 05/12/21 Ying Quispe DO [address] [place] [address] PCP - PK Attributed Provider - [facility] 05/29/21 05/28/50 Morphology Teacher Relationship Specialty Start Date End Date Ying Quispe DO [address] [place] [address] PCP - General Family Medicine 05/12/21 Ying Quispe DO [address] [place] [address] PCP - PK Attributed Provider - [facility] 05/29/21 05/28/50 Morphology Teacher Relationship Specialty Start Date End Date Ying Quispe DO [address] [place] [address] PCP - General Family Medicine 05/12/21 Ying Quispe DO [address] [place] [address] PCP - PK Attributed Provider - [facility] 05/29/21 05/28/50 Morphology Teacher Relationship Specialty Start Date End Date Ying Quispe DO [address] [place] [address] PCP - General Family Medicine 05/12/21 Ying Quispe DO [address] [place] [address] PCP - PK Attributed Provider - [facility] 05/29/21 05/28/50 Morphology Teacher Relationship Specialty Start Date End Date Ying Quispe DO [address] [place] [address] PCP - General Family Medicine 05/12/21 Ying Quispe DO [address] [place] [address] PCP - PK Attributed Provider - [facility] 05/29/21 05/28/50 Morphology Teacher Relationship Specialty Start Date End Date Ying Quispe DO [address] [place] [address] PCP - General Family Medicine 05/12/21 Ying Quispe DO [address] [place] [address] PCP - PK Attributed Provider - [facility] 05/29/21 05/28/50 Morphology Teacher Relationship Specialty Start Date End Date Ying Quispe DO [address] [place] [address] PCP - General Family Medicine 05/12/21 Ying Quispe DO [address] [place] [address] PCP - PK Attributed Provider - [facility] 05/29/21 05/28/50 Morphology Teacher Relationship Specialty Start Date End Date Ying Quispe DO [address] [place] [address] PCP - General Family Medicine 05/12/21 Ying Quispe DO [address] [place] [address] PCP - PK Attributed Provider - [facility] 05/29/21 05/28/50 Morphology Teacher Relationship Specialty Start Date End Date Ying Quispe DO [address] [place] [address] PCP - General Family Medicine 05/12/21 Ying Quispe DO [address] [place] [address] PCP - PK Attributed Provider - [facility] 05/29/21 05/28/50 Morphology Teacher Relationship Specialty Start Date End Date Ying Quispe DO [address] [place] [address] PCP - General Family Medicine 05/12/21 Ying Quispe, DO [address] [place] [address] PCP - PK Attributed Provider - [facility] 05/29/21 05/28/50 Morphology Teacher Relationship Specialty Start Date End Date Ying Quispe DO [address] [place] [address] PCP - General Family Medicine 05/12/21 Ying Quispe DO [address] [place] [address] PCP - PK Attributed Provider - [facility] 05/29/21 05/28/50 Morphology Teacher Relationship Specialty Start Date End Date Ying Quispe DO [address] [place] [address] PCP - General Family Medicine 05/12/21 Ying Quispe DO [address] [place] [address] PCP - PK Attributed Provider - [facility] 05/29/21 05/28/50 Lita Gu MD [address] [place] [address] Consulting Physician Hematology/Oncology 04/24/23 Morphology Teacher Relationship Specialty Start Date End Date Ying Quispe DO [address] [place] [address] PCP - General Family Medicine 05/12/21 Ying Quispe DO [address] [place] [address] PCP - PK Attributed Provider - [facility] 05/29/21 05/28/50 Lita Gu MD [address] [place] [address] Consulting Physician Hematology/Oncology 04/24/23 Morphology Teacher Relationship Specialty Start Date End Date Ying Quispe DO [address] [place] [address] PCP - General Family Medicine 05/12/21 Ying Quispe DO [address] [place] [address] PCP - PK Attributed Provider - [facility] 05/29/21 05/28/50 Lita Gu MD [address] [place] [address] Consulting Physician Hematology/Oncology 04/24/23 Morphology Teacher Relationship Specialty Start Date End Date Ying Quispe DO [address] [place] [address] PCP - General Family Medicine 05/12/21 Ying Quispe DO [address] [place] [address] PCP - PK Attributed Provider - [facility] 05/29/21 05/28/50 Lita Gu MD [address] [place] [address] Consulting Physician Hematology/Oncology 04/24/23 Morphology Teacher Relationship Specialty Start Date End Date Ying Quispe DO [address] [place] [address] PCP - General Family Medicine 05/12/21 Ying Quispe DO [address] [place] [address] PCP - PK Attributed Provider - [facility] 05/29/21 05/28/50 Lita Gu MD [address] [place] [address] Consulting Physician Hematology/Oncology 04/24/23 Morphology Teacher Relationship Specialty Start Date End Date Ying Quispe DO [address] [place] [address] PCP - General Family Medicine 05/12/21 Ying Quispe DO [address] [place] [address] PCP - PK Attributed Provider - [facility] 05/29/21 05/28/50 Lita Gu MD [address] [place] [address] Consulting Physician Hematology/Oncology 04/24/23 Morphology Teacher Relationship Specialty Start Date End Date Ying Quispe DO [address] [place] [address] PCP - General Family Medicine 05/12/21 Ying Quispe DO [address] [place] [address] PCP - PK Attributed Provider - [facility] 05/29/21 05/28/50 Lita Gu MD [address] [place] [address] Consulting Physician Hematology/Oncology 04/24/23 Morphology Teacher Relationship Specialty Start Date End Date Ying Quispe DO [address] [place] [address] PCP - General Family Medicine 05/12/21 Ying Quispe DO [address] [place] [address] PCP - PK Attributed Provider - [facility] 05/29/21 05/28/50 Lita Gu MD [address] [place] [address] Consulting Physician Hematology/Oncology 04/24/23 Morphology Teacher Relationship Specialty Start Date End Date Ying Quispe DO [address] [place] [address] PCP - General Family Medicine 05/12/21 Ying Quispe DO [address] [place] [address] PCP - PK Attributed Provider - [facility] 05/29/21 05/28/50 Lita Gu MD [address] [place] [address] Consulting Physician Hematology/Oncology 04/24/23 Morphology Teacher Relationship Specialty Start Date End Date Ying Quispe DO [address] [place] [address] PCP - General Family Medicine 05/12/21 Ying Quispe DO [address] [place] [address] PCP - PK Attributed Provider - [facility] 05/29/21 05/28/50 Lita Gu MD [address] [place] [address] Consulting Physician Hematology/Oncology 04/24/23 Morphology Teacher Relationship Specialty Start Date End Date Ying Quispe DO [address] [place] [address] PCP - General Family Medicine 05/12/21 Ying Quispe DO [address] [place] [address] PCP - PK Attributed Provider - [facility] 05/29/21 05/28/50 Lita Gu MD [address] [place] [address] Consulting Physician Hematology/Oncology 04/24/23 Morphology Teacher Relationship Specialty Start Date End Date Ying Quispe DO [address] [place] [address] PCP - General Family Medicine 05/12/21 Ying Quispe DO [address] [place] [address] PCP - PK Attributed Provider - [facility] 05/29/21 05/28/50 Lita Gu MD [address] [place] [address] Consulting Physician Hematology/Oncology 04/24/23 Morphology Teacher Relationship Specialty Start Date End Date Ying Quispe DO [address] [place] [address] PCP - General Family Medicine 05/12/21 Ying Quispe DO [address] [place] [address] PCP - PK Attributed Provider - [facility] 05/29/21 05/28/50 Lita Gu MD [address] [place] [address] Consulting Physician Hematology/Oncology 04/24/23 Morphology Teacher Relationship Specialty Start Date End Date Ying Quispe DO [address] [place] [address] PCP - General Family Medicine 05/12/21 Ying Quispe DO [address] [place] [address] PCP - PK Attributed Provider - [facility] 05/29/21 05/28/50 Lita Gu MD [address] [place] [address] Consulting Physician Hematology/Oncology 04/24/23 Morphology Teacher Relationship Specialty Start Date End Date Ying Quispe DO [address] [place] [address] PCP - General Family Medicine 05/12/21 Ying Quispe DO [address] [place] [address] PCP - PK Attributed Provider - [facility] 05/29/21 05/28/50 Lita Gu MD [address] [place] [address] Consulting Physician Hematology/Oncology 04/24/23 Morphology Teacher Relationship Specialty Start Date End Date Ying Quispe DO [address] [place] [address] PCP - General Family Medicine 05/12/21 Ying Quispe DO [address] [place] [address] PCP - PK Attributed Provider - [facility] 05/29/21 05/28/50 Lita Gu MD [address] [place] [address] Consulting Physician Hematology/Oncology 04/24/23 Morphology Teacher Relationship Specialty Start Date End Date Ying Quispe DO [address] [place] [address] PCP - General Family Medicine 05/12/21 Ying Quispe DO [address] [place] [address] PCP - PK Attributed Provider - [facility] 05/29/21 05/28/50 Lita Gu MD [address] [place] [address] Consulting Physician Hematology/Oncology 04/24/23 Morphology Teacher Relationship Specialty Start Date End Date Ying Quispe DO [address] [place] [address] PCP - General Family Medicine 05/12/21 Ying Quispe DO [address] [place] [address] PCP - PK Attributed Provider - [facility] 05/29/21 05/28/50 Lita Gu MD [address] [place] [address] Consulting Physician Hematology/Oncology 04/24/23 Morphology Teacher Relationship Specialty Start Date End Date Ying Quispe DO [address] [place] [address] PCP - General Family Medicine 05/12/21 Ying Quispe DO [address] [place] [address] PCP - PK Attributed Provider - [facility] 05/29/21 05/28/50 Lita Gu MD [address] [place] [address] Consulting Physician Hematology/Oncology 04/24/23 Morphology Teacher Relationship Specialty Start Date End Date Ying Quispe DO [address] [place] [address] PCP - General Family Medicine 05/12/21 Ying Quispe DO [address] [place] [address] PCP - PK Attributed Provider - [facility] 05/29/21 05/28/50 Lita Gu MD [address] [place] [address] Consulting Physician Hematology/Oncology 04/24/23 Morphology Teacher Relationship Specialty Start Date End Date Ying Quispe DO [address] [place] [address] PCP - General Family Medicine 05/12/21 Ying Quispe DO [address] [place] [address] PCP - PK Attributed Provider - [facility] 05/29/21 05/28/50 Lita Gu MD [address] [place] [address] Consulting Physician Hematology/Oncology 04/24/23 Morphology Teacher Relationship Specialty Start Date End Date Ying Quispe DO [address] [place] [address] PCP - General Family Medicine 05/12/21 Ying Quispe DO [address] [place] [address] PCP - PK Attributed Provider - [facility] 05/29/21 05/28/50 Lita Gu MD [address] [place] [address] Consulting Physician Hematology/Oncology 04/24/23 Morphology Teacher Relationship Specialty Start Date End Date Ying Quispe DO [address] [place] [address] PCP - General Family Medicine 05/12/21 Ying Quispe DO [address] [place] [address] PCP - PK Attributed Provider - [facility] 05/29/21 05/28/50 Lita Gu MD [address] [place] [address] Consulting Physician Hematology/Oncology 04/24/23 Morphology Teacher Relationship Specialty Start Date End Date Ying Quispe DO [address] [place] [address] PCP - General Family Medicine 05/12/21 Ying Quispe DO [address] [place] [address] PCP - PK Attributed Provider - [facility] 05/29/21 05/28/50 Lita Gu MD [address] [place] [address] Consulting Physician Hematology/Oncology 04/24/23 Morphology Teacher Relationship Specialty Start Date End Date Ying Quispe DO [address] [place] [address] PCP - General Family Medicine 05/12/21 Ying Quispe DO [address] [place] [address] PCP - PK Attributed Provider - [facility] 05/29/21 05/28/50 Lita Gu MD [address] [place] [address] Consulting Physician Hematology/Oncology 04/24/23 Morphology Teacher Relationship Specialty Start Date End Date Ying Quispe DO [address] [place] [address] PCP - General Family Medicine 05/12/21 Ying Quispe DO [address] [place] [address] PCP - PK Attributed Provider - [facility] 05/29/21 05/28/50 Lita Gu MD [address] [place] [address] Consulting Physician Hematology/Oncology 04/24/23 Morphology Teacher Relationship Specialty Start Date End Date Ying Quispe DO [address] [place] [address] PCP - General Family Medicine 05/12/21 Ying Quispe DO [address] [place] [address] PCP - PK Attributed Provider - [facility] 05/29/21 05/28/50 Lita Gu MD [address] [place] [address] Consulting Physician Hematology/Oncology 04/24/23 Morphology Teacher Relationship Specialty Start Date End Date Ying Quispe DO [address] [place] [address] PCP - General Family Medicine 05/12/21 Ying Quispe DO [address] [place] [address] PCP - PK Attributed Provider - [facility] 05/29/21 05/28/50 Lita Gu MD [address] [place] [address] Consulting Physician Hematology/Oncology 04/24/23 Morphology Teacher Relationship Specialty Start Date End Date Ying Quispe DO [address] [place] [address] PCP - General Family Medicine 05/12/21 Ying Quispe DO [address] [place] [address] PCP - PK Attributed Provider - [facility] 05/29/21 05/28/50 Lita Gu MD [address] [place] [address] Consulting Physician Hematology/Oncology 04/24/23 Morphology Teacher Relationship Specialty Start Date End Date Ying Quispe DO [address] [place] [address] PCP - General Family Medicine 05/12/21 Ying Quispe DO [address] [place] [address] PCP - PK Attributed Provider - [facility] 05/29/21 05/28/50 Lita Gu MD [address] [place] [address] Consulting Physician Hematology/Oncology 04/24/23 Morphology Teacher Relationship Specialty Start Date End Date Ying Quispe DO [address] [place] [address] PCP - General Family Medicine 05/12/21 Ying Quispe DO [address] [place] [address] PCP - PK Attributed Provider - [facility] 05/29/21 05/28/50 Lita Gu MD [address] [place] [address] Consulting Physician Hematology/Oncology 04/24/23 Morphology Teacher Relationship Specialty Start Date End Date Ying Quispe DO [address] [place] [address] PCP - General Family Medicine 05/12/21 Ying Quispe DO [address] [place] [address] PCP - PK Attributed Provider - [facility] 05/29/21 05/28/50 Lita Gu MD [address] [place] [address] Consulting Physician Hematology/Oncology 04/24/23 Morphology Teacher Relationship Specialty Start Date End Date Ying Quispe DO [address] [place] [address] PCP - General Family Medicine 05/12/21 Ying Quispe DO [address] [place] [address] PCP - PK Attributed Provider - [facility] 05/29/21 05/28/50 Lita Gu MD [address] [place] [address] Consulting Physician Hematology/Oncology 04/24/23 Yisel Paiz MD [address] [place] [address] Consulting Physician Nephrology 12/27/23 Morphology Teacher Relationship Specialty Start Date End Date Ying Quispe DO [address] [place] [address] PCP - General Family Medicine 05/12/21 Ying Quispe DO [address] [place] [address] PCP - PK Attributed Provider - [facility] 05/29/21 05/28/50 Lita Gu MD [address] [place] [address] Consulting Physician Hematology/Oncology 04/24/23 Yisel Paiz MD [address] [place] [address] Consulting Physician Nephrology 12/27/23 Morphology Teacher Relationship Specialty Start Date End Date Ying Quispe DO [address] [place] [address] PCP - General Family Medicine 05/12/21 Ying Quispe DO [address] [place] [address] PCP - PK Attributed Provider - [facility] 05/29/21 05/28/50 Lita Gu MD [address] [place] [address] Consulting Physician Hematology/Oncology 04/24/23 Yisel Paiz MD [address] [place] [address] Consulting Physician Nephrology 12/27/23 Morphology Teacher Relationship Specialty Start Date End Date Ying Quispe DO [address] [place] [address] PCP - General Family Medicine 05/12/21 Ying Quispe DO [address] [place] [address] PCP - PK Attributed Provider - [facility] 05/29/21 05/28/50 Lita Gu MD [address] [place] [address] Consulting Physician Hematology/Oncology 04/24/23 Yisel Paiz MD [address] [place] [address] Consulting Physician Nephrology 12/27/23 Morphology Teacher Relationship Specialty Start Date End Date Ying Quispe DO [address] [place] [address] PCP - General Family Medicine 05/12/21 Ying Quispe DO [address] [place] [address] PCP - PK Attributed Provider - [facility] 05/29/21 05/28/50 Lita Gu MD [address] [place] [address] Consulting Physician Hematology/Oncology 04/24/23 Yisel Paiz MD [address] [place] [address] Consulting Physician Nephrology 12/27/23 Morphology Teacher Relationship Specialty Start Date End Date Ying Quispe DO [address] [place] [address] PCP - General Family Medicine 05/12/21 Ying Quispe DO [address] [place] [address] PCP - PK Attributed Provider - [facility] 05/29/21 05/28/50 Lita Gu MD [address] [place] [address] Consulting Physician Hematology/Oncology 04/24/23 Yisel Paiz MD [address] [place] [address] Consulting Physician Nephrology 12/27/23 Morphology Teacher Relationship Specialty Start Date End Date Ying Quispe DO [address] [place] [address] PCP - General Family Medicine 05/12/21 Ying Quispe DO [address] [place] [address] PCP - PK Attributed Provider - [facility] 05/29/21 05/28/50 Lita Gu MD [address] [place] [address] Consulting Physician Hematology/Oncology 04/24/23 Yisel Paiz MD [address] [place] [address] Consulting Physician Nephrology 12/27/23 Morphology Teacher Relationship Specialty Start Date End Date Ying Quispe DO [address] [place] [address] PCP - General Family Medicine 05/12/21 Ying Quispe DO [address] [place] [address] PCP - PK Attributed Provider - [facility] 05/29/21 05/28/50 Lita Gu MD [address] [place] [address] Consulting Physician Hematology/Oncology 04/24/23 Yisel Paiz MD [address] [place] [address] Consulting Physician Nephrology 12/27/23 Morphology Teacher Relationship Specialty Start Date End Date Ying Quispe DO [address] [place] [address] PCP - General Family Medicine 05/12/21 Ying Quispe DO [address] [place] [address] PCP - PK Attributed Provider - [facility] 05/29/21 05/28/50 Lita Gu MD [address] [place] [address] Consulting Physician Hematology/Oncology 04/24/23 Yisel Paiz MD [address] [place] [address] Consulting Physician Nephrology 12/27/23 Morphology Teacher Relationship Specialty Start Date End Date Ying Quispe DO [address] [place] [address] PCP - General Family Medicine 05/12/21 Ying Quispe DO [address] [place] [address] PCP - PK Attributed Provider - [facility] 05/29/21 05/28/50 Lita Gu MD [address] [place] [address] Consulting Physician Hematology/Oncology 04/24/23 Yisel Paiz MD [address] [place] [address] Consulting Physician Nephrology 12/27/23 Morphology Teacher Relationship Specialty Start Date End Date Ying Quispe DO [address] [place] [address] PCP - General Family Medicine 05/12/21 Ying Quispe DO [address] [place] [address] PCP - PK Attributed Provider - [facility] 05/29/21 05/28/50 Lita Gu MD [facility] [place] [address] Consulting Physician Hematology/Oncology 04/24/23 Yisel Paiz MD [address] [place] [address] Consulting Physician Nephrology 12/27/23 Morphology Teacher Relationship Specialty Start Date End Date Ying Quispe DO [address] [place] [address] PCP - General Family Medicine 05/12/21 Ying Quispe DO [address] [place] [address] PCP - PK Attributed Provider - [facility] 05/29/21 05/28/50 Lita Gu MD [address] [place] [address] Consulting Physician Hematology/Oncology 04/24/23 Yisel Paiz MD [address] [place] [address] Consulting Physician Nephrology 12/27/23 Morphology Teacher Relationship Specialty Start Date End Date Ying Quispe DO [address] [place] [address] PCP - General Family Medicine 05/12/21 Ying Quispe DO [address] [place] [address] PCP - PK Attributed Provider - [facility] 05/29/21 05/28/50 Lita Gu MD [address] [place] [address] Consulting Physician Hematology/Oncology 04/24/23 Yisel Paiz MD [address] [place] [address] Consulting Physician Nephrology 12/27/23 Morphology Teacher Relationship Specialty Start Date End Date Ying Quispe DO [address] [place] [address] PCP - General Family Medicine 05/12/21 Ying Quispe DO [address] [place] [address] PCP - PK Attributed Provider - [facility] 05/29/21 05/28/50 Lita Gu MD [address] [place] [address] Consulting Physician Hematology/Oncology 04/24/23 Yisel Paiz MD [address] [place] [address] Consulting Physician Nephrology 12/27/23 Morphology Teacher Relationship Specialty Start Date End Date Ying Quispe DO [address] [place] [address] PCP - General Family Medicine 05/12/21 Ying Quispe DO [address] [place] [address] PCP - PK Attributed Provider - [facility] 05/29/21 05/28/50 Lita Gu MD [facility] [place] [address] Consulting Physician Hematology/Oncology 04/24/23 Yisel Paiz MD [address] [place] [address] Consulting Physician Nephrology 12/27/23 Morphology Teacher Relationship Specialty Start Date End Date Ying Quispe DO [address] [place] [address] PCP - General Family Medicine 05/12/21 Ying Quispe DO [address] [place] [address] PCP - PK Attributed Provider - [facility] 05/29/21 05/28/50 Lita Gu MD [address] [place] [address] Consulting Physician Hematology/Oncology 04/24/23 Yisel Paiz MD [address] [place] [address] Consulting Physician Nephrology 12/27/23 Codie Garcia, financial services sales representativeInformatics Application Analyst 07/02/24 Morphology Teacher Relationship Specialty Start Date End Date Ying Quispe DO [address] [place] [address] PCP - General Family Medicine 05/12/21 Ying Quispe DO [address] [place] [address] PCP - PK Attributed Provider - [facility] 05/29/21 05/28/50 Lita Gu MD [address] [place] [address] Consulting Physician Hematology/Oncology 04/24/23 Yisel Paiz MD [address] [place] [address] Consulting Physician Nephrology 12/27/23 Codie Garcia, financial services sales representativeInformatics Application Analyst 07/02/24 07/03/24 Morphology Teacher Relationship Specialty Start Date End Date Ying Quispe DO [address] [place] [address] PCP - General Family Medicine 05/12/21 Ying Quispe DO [address] [place] [address] PCP - PK Attributed Provider - [facility] 05/29/21 05/28/50 Lita Gu MD [address] [place] [address] Consulting Physician Hematology/Oncology 04/24/23 Yisel Paiz MD [address] [place] [address] Consulting Physician Nephrology 12/27/23 Morphology Teacher Relationship Specialty Start Date End Date Ying Quispe DO [address] [place] [address] PCP - General Family Medicine 05/12/21 Ying Quispe DO [address] [place] [address] PCP - PK Attributed Provider - [facility] 05/29/21 05/28/50 Lita Gu MD [address] [place] [address] Consulting Physician Hematology/Oncology 04/24/23 [place] [address] Consulting Physician Nephrology 12/27/23 Team Status: Inactive [...] September 16, 2024 End: September 16, 2024 Team Status: Active Member Role/Relationship Status Dates Dr. Millie Massey MD Primary Care Provider Active Team Status: Inactive Member Role/Relationship Status Dates Dr. Ethan Rodriguez MD Primary [...] July 29, 2024 Team Status: Active Member Role/Relationship Status Dates Dr. Ethan Rodriguez MD Primary [...] July 28, 2024 Team Status: Active Member Role/Relationship Status Dates Dr. Ethan Rodriguez MD Primary [...] July 29, 2024 Team Status: Active Member Role/Relationship Status Dates Dr. Ethan Rodriguez MD Primary Care Provider Active Start: July 30, 2024 Dr. Millie RENE MD Attending Provider Active Start: July 30, 2024 Team Status: Inactive Member Role/Relationship Status Dates Dr. Ethan Rodriguez MD Primary [...] August 13, 2024 Team Status: Active Member Role/Relationship Status Dates Dr. Ethan Rodriguez MD Primary [...] August 01, 2024 Team Status: Active Member Role/Relationship Status Dates Dr. Ethan Rodriguez MD Primary [...] August 01, 2024 Team Status: Active Member Role/Relationship Status Dates Dr. Ethan Rodriguez MD Primary [...] August 02, 2024 Team Status: Active Member Role/Relationship Status Dates Dr. Ethan Rodriguez MD Primary [...] August 02, 2024 Team Status: Active Member Role/Relationship Status Dates Dr. Ethan Rodriguez MD Primary [...] August 03, 2024 Team Status: Active Member Role/Relationship Status Dates Dr. Ethan Rodriguez MD Primary [...] August 03, 2024 Team Status: Active Member Role/Relationship Status Dates Dr. Ethan Rodriguez MD Primary [...] August 04, 2024 Team Status: Active Member Role/Relationship Status Dates Dr. tEhan Rodriguez MD Primary Care Provider Active Start: [...] August 05, 2024 Team Status: Active Member Role/Relationship Status Dates Dr. Ethan Rodriguez MD Primary [...] August 06, 2024 Team Status: Active Member Role/Relationship Status Dates Dr. Ethan Rodriguez MD Primary [...] August 06, 2024 Team Status: Active Member Role/Relationship Status Dates Dr. Ethan Rodriguez MD Primary [...] August 07, 2024 Team Status: Active Member Role/Relationship Status Dates Dr. Ethan Rodriguez MD Primary [...] August 08, 2024 Team Status: Active Member Role/Relationship Status Dates Dr. Ethan Rodriguez MD Primary [...] August 08, 2024 Team Status: Active Member Role/Relationship Status Dates Dr. Ethan Rodriguez MD Primary [...] August 09, 2024 Team Status: Active Member Role/Relationship Status Dates Dr. Ethan Rodriguez MD Primary [...] August 10, 2024 Team Status: Active Member Role/Relationship Status Dates Dr. Ethan Rodriguez MD Primary Care Provider Active Start: August 11, 2024 Dr. Noah Avery MD Referring Provider Active S tart: August 11, 2024 Dr. Noah Avery MD Emergency Provider Active S tart: August 11, 2024 Dr. Kvng Watkins , Admit Provider Active Start: August 11, 2024 [...] August 11, 2024 Team Status: Active Member Role/Relationship Status Dates Dr. Ethan Rodriguez MD Primary [...] August 12, 2024 Team Status: Active Member Role/Relationship Status Dates Dr. Ethan Rodriguez MD Primary Care Provider Active Start: August 13, 2024 Dr. Noah Avery MD Emergency Provider Active S tart: August 13, 2024 Dr. Kvng Watkins DO Admit Provider Active Start: August 13, 2024 Dr. Kvng Watkins DO Other Provider Active Start: August 13, 2024 Dr. nAgie Torres MD Other Provider Active Start: August 13, 2024 Dr. Mar Mead MD Other Provider Active St art: August 13, 2024 Dr. Nikolas Magaña MD Attending Provider Active Start: August 13, 2024 Dr. Nikolas Magaña MD Other Provider Active Sta rt: August 13, 2024 Dr. Judd Galvin , Other Provider Active Star t: August 13, 2024 Team Status: Inactive Member Role/Relationship Status Dates Dr. Ethan Rodriguez MD Primary Care Provider Active Start: August 14, 2024 End: August 14, 2024 Dr. Millie RENE MD Attending Provider Active Start: August 14, 2024 End: August 14, 2024 Team Status: Inactive Member Role/Relationship Status Dates Dr. Millie Massey MD Primary [...] August 17, 2024 Team Status: Active Member Role/Relationship Status Dates Dr. Millie Massey MD Primary [...] August 14, 2024 Team Status: Active Member Role/Relationship Status Dates Dr. Millie Massey MD Primary [...] August 15, 2024 Team Status: Active Member Role/Relationship Status Dates Dr. Millie Massey MD Primary Care Provider Active Start: August 15, 2024 Dr. Brandt Mendez MD Attending Provider Active Start: August 15, 2024 Dr. Brandt Mendez MD Referring Provider Active Start: August 15, 2024 Team Status: Active Member Role/Relationship Status Dates Dr. Millie Massey MD Primary [...] August 15, 2024 Team Status: Active Member Role/Relationship Status Dates Dr. Millie Massey MD Primary Care Provider Active Start: August 15, 2024 Dr. Tevin Nicholas MD Attending Provider Active S tart: August 15, 2024 Team Status: Active Member Role/Relationship Status Dates Dr. Saul Silva MD Attending Provider Active Start: August 15, 2024 [employer] [place] Referring Provider Active Start: August 15, 2024 Team Status: Active Member Role/Relationship Status Dates Dr. Millie Massey MD Primary [...] August 16, 2024 Team Status: Active Member Role/Relationship Status Dates Dr. Millie Massey MD Primary [...] August 17, 2024 Team Status: Active Member Role/Relationship Status Dates Dr. Millie Massey MD Primary Care Provider Active Start: August 19, 2024 Dr. Millie RENE MD Attending Provider Active Start: August 19, 2024 Team Status: Inactive Member Role/Relationship Status Dates Dr. Millie Massey MD Primary Care Provider Active Start: August 22, 2024 End: August 22, 2024 Dr. Millie RENE MD Attending Provider Active Start: August 22, 2024 End: August 22, 2024 Team Status: Inactive Member Role/Relationship Status Dates Dr. Millie Massey MD Primary Care Provider Active Start: August 26, 2024 End: August 26, 2024 Dr. Millie RENE MD Attending Provider Active Start: August 26, 2024 End: August 26, 2024 Dr. Millie RENE MD Referring Provider Active Start: August 26, 2024 End: August 26, 2024 Team Status: Inactive Member Role/Relationship Status Dates Dr. Millie Massey MD Primary Care Provider Active Start: August 28, 2024 End: August 28, 2024 Dr. Millie RENE MD Attending Provider Active Start: August 28, 2024 End: August 28, 2024 Team Status: Active Member Role/Relationship Status Dates Dr. Millie Massey MD Primary Care Provider Active Start: August 29, 2024 Dr. Millie RENE MD Attending Provider Active Start: August 29, 2024 Team Status: Inactive Member Role/Relationship Status Dates Dr. Millie Massey MD Primary Care Provider Active Start: August 31, 2024 End: August 31, 2024 Dr. Millie Massey MD Attending Provider Active Start: August 31, 2024 End: August 31, 2024 Dr. Millie Massey MD Referring Provider Active Start: August 31, 2024 End: August 31, 2024 Team Status: Inactive Member Role/Relationship Status Dates Dr. Millie Massey MD Primary Care Provider Active Start: September 02, 2024 End: September 02, 2024 Dr. Millie RENE MD Attending Provider Active Start: September 02, 2024 End: September 02, 2024 Team Status: Inactive Member Role/Relationship Status Dates Dr. Millie Massey MD Primary Care Provider Active Start: September 09, 2024 End: September 09, 2024 Dr. Millie RENE MD Attending Provider Active Start: September 09, 2024 End: September 09, 2024 Dr. Millie RENE MD Referring Provider Active Start: September 09, 2024 End: September 09, 2024 Team Status: Inactive Member Role/Relationship Status Dates Dr. Millie Massey MD Primary Care Provider Active Start: September 15, 2024 End: September 15, 2024 Dr. Constantin Jain MD Attending Provider Active Start: September 15, 2024 End: September 15, 2024 Dr. Constantin Jain MD Emergency Provider Active Start: September 15, 2024 End: September 15, 2024 Team Status: Inactive Member Role/Relationship Status Dates Dr. Millie Massey MD Primary Care Provider Active Start: September 16, 2024 End: September 16, 2024 Dr. Millie RENE MD Attending Provider Active Start: September 16, 2024 End: September 16, 2024 Team Status: Inactive Member Role/Relationship Status Dates Dr. Millie Massey MD Primary Care Provider Active Start: September 18, 2024 End: September 18, 2024 Dr. Millie RENE MD Attending Provider Active Start: September 18, 2024 End: September 18, 2024 Team Status: Inactive Member Role/Relationship Status Dates Dr. Millie Massey MD Primary Care Provider Active Start: September 23, 2024 End: September 23, 2024 Dr. Millie RENE MD Attending Provider Active Start: September 23, 2024 End: September 23, 2024 Team Status: Active Member Role/Relationship Status Dates Dr. Millie Massey MD Primary Care Provider Active Start: October 30, 2024 Dr. Millie RENE MD Attending Provider Active Start: October 30, 2024 Team Status: Active Member Role/Relationship Status Dates Dr. Millie Massey MD Primary Care Provider Active Start: November 04, 2024 Dr. Millie RENE MD Attending Provider Active Start: November 04, 2024 Team Status: Active Member Role/Relationship Status Dates Dr. Millie Massey MD Primary Care Provider Active Start: November 05, 2024 Dr. Millie RENE MD Attending Provider Active Start: November 05, 2024 Team Status: Active Member Role/Relationship Status Dates Dr. Millie Massey MD Primary Care Provider Active Start: November 12, 2024 Dr. Millie RENE MD Attending Provider Active Start: November 12, 2024 Team Status: Active Member Role/Relationship Status Dates Dr. Millie Massey MD Primary Care Provider Active Start: November 18, 2024 Dr. Millie RENE MD Attending Provider Active Start: November 18, 2024 Team Status: Inactive Member Role/Relationship Status Dates Dr. Millie Massey MD Primary Care Provider Active Start: November 20, 2024 End: November 20, 2024 Dr. Ying Contreras DPM Attending Provider Active Start: November 20, 2024 End: November 20, 2024 Scheduled Active and Recently Administ ered [...] Monaco RN)[phone] (Rate/Dose Verify - Provider: Svetlana Monaco, RN)[phone] (Rate/Dose Verify - Provider: Svetlana Monaco [...] BE BASED ON THE PRIMARY CLINICAL RECORDS. [facility]. provides no warranty or guarantee of the accuracy or completeness of information in this document.
[2024-11-26 11:35] LABS: Hematocrit 30.7 % (37-47); Hemoglobin 9.5 g/dL (12.0-15.0); Immature Granulocytes Count 0.030 X10^3/uL (0.0-0.0); Mean Corp Hgb Conc 30.9 g/dL (32-36); Mean Corpuscular Volume 88.7 fL (81-99); Mean Platelet Vol. 11.3 fl (6.2-12.0); NRBC Flagged by Analyzer 0 % (0-5); POSITIVE DIFFERENTIAL YES; Platelet Count 154 K/mm3 (150-450); RBC Distribution Width CV 18.8 % (11.6-14.6); RBC Distribution Width SD 60.2 fl (35.1-43.9); Red Blood Count 3.46 M/mm3 (4.2-5.4); White Blood Count 4.0 K/mm3 (4.4-11.0)
[2024-11-26 11:54] LABS: Anion Gap 12 (5-15); BUN 45 mg/dL (4-19); BUN/Creat Ratio 33.2 RATIO (10-20); CRP 21.10 mg/L (0.0-3.0); Calcium,Total 9.5 mg/dL (7.6-11.0); Carbon Dioxide 29.0 mmol/L (21.0-32.0); Chloride 93 mmol/L (98-108); Glucose 96 mg/dL (70-99); Potassium 3.4 mmol/L (3.3-5.1)
== END ==
LOC: OLS.SW 04:00
PROVIDERS: PCP Internal Medicine; Referring Provider Internal Medicine; Visit Provider Internal Medicine
DX: N18.6 End stage renal disease (principal)
CPT/HCPCS: 36415; 80048; 85025; 86140

== ENCOUNTER → 2024-12-03 | Outpatient (REF) | payer OTHER, SELFPAY ==
[2024-12-03 08:45] LABS: Hematocrit 28.7 % (37-47); Hemoglobin 9.0 g/dL (12.0-15.0); Immature Granulocytes Count 0.040 X10^3/uL (0.0-0.0); Mean Corp Hgb Conc 31.4 g/dL (32-36); Mean Corpuscular Volume 89.7 fL (81-99); Mean Platelet Vol. 11.5 fl (6.2-12.0); NRBC Flagged by Analyzer 0 % (0-5); POSITIVE DIFFERENTIAL YES; Platelet Count 144 K/mm3 (150-450); RBC Distribution Width CV 18.4 % (11.6-14.6); RBC Distribution Width SD 60.4 fl (35.1-43.9); Red Blood Count 3.20 M/mm3 (4.2-5.4); White Blood Count 3.3 K/mm3 (4.4-11.0)
[2024-12-03 09:20] LABS: Anion Gap 11 (5-15); BUN 44 mg/dL (4-19); BUN/Creat Ratio 33.7 RATIO (10-20); CRP 11.40 mg/L (0.0-3.0); Calcium,Total 9.3 mg/dL (7.6-11.0); Carbon Dioxide 27.7 mmol/L (21.0-32.0); Chloride 95 mmol/L (98-108); Glucose 116 mg/dL (70-99); Potassium 3.2 mmol/L (3.3-5.1)
== END ==
LOC: OLS.SW 05:00
PROVIDERS: PCP Internal Medicine; Visit Provider Internal Medicine
DX: J81.1 Chronic pulmonary edema (principal); N18.6 End stage renal disease; L89.619 Pressure ulcer of right heel, unspecified stage
CPT/HCPCS: 36415; 80048; 85025; 86140

== ENCOUNTER → 2024-12-10 | Outpatient (REF) | payer OTHER, SELFPAY ==
--- OUTSIDE RECORDS SUMMARY | 2024-12-10 03:47 | XMS RPT_ITS | CCD ---
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 Name Role Phone Bambi Huynh Unavailable Bambi Huynh Unavailable Unavail able Bambi Huynh Unavailable Unavail able Bambi Huynh Primary Care Provider Bambi Huynh Primary Care Provider BAMBI HUYNH Primary Care Unavail able REBECA KAUR Attending Unavail able Bambi Huynh Primary Care Provider Bambi Huynh Unavailable Bambi Huynh MD Primary Care Provide r Bambi Huynh MD Unavailable [phone] Ying Quispe DO Primary Care Provider Ying Quispe DO Primary Care Provider Ying Quispe DO Primary Care Provider Ying Quispe DO Unavailable aBmbi Huynh MD Primary Care Provide r Makenzie Bajwa CNP Primary Care Provider Ying Quispe DO Unavailable Jose MEJIA, Codie Alfred Unavailable Unav ailable Ying Quispe DO Unavailable Lita Gu MD Unavailable PHYSICIAN, PCP UNKNOWN Primary Care Unavailab LUCRECIA ForteETH E~[phone] Attend ing Unavailable GRESSER, BRONWYN N Referring Unavailable PHYSICIAN, PCP UNKNOWN Primary Care Unavailab le GRESSER, BRONWYN N Attending Unavailable PHYSICIAN, PCP UNKNOWN Primary Care Unavailab le ALLEN FRANK, FRANK~[phone] [facility] Attending Unavailable PHYSICIAN, PCP UNKNOWN Primary Care Unavailab le ALLEN FRANK, FRANK~[phone] [facility] Attending Unavailable GRESSER, BRONWYN N Attending Unavailable [...] PCP UNKNOWN Primary Care Unavailab le BRANDT CAGE~[phone] RAGHAVENDRA Attending Unavailable BRANDT CAGE~[id number] RAGHAVENDRA Referring Unavailable PHYSICIAN, PCP UNKNOWN Primary Care Unavailab le GRESSER, BRONWYN N Referring Unavailable GRESSER, BRONWYN N Attending Unavailable IZABELLA CARRILLO Attending Unavailable YING QUISPE Primary Care Unavailable YING QUISPE Referring Unavailable YING QUISPE Attending Unavailable YING QUISPE Primary Care Unavailable YING QUISPE Primary Care Unavailable YING QUISPE Admitting Unavailable YING QUISPE Referring Unavailable Kamadana MD, Yisel Unavailable [phone] BRITTANEYYING Referring Unavailable YING QUISPE Primary Care Unavailable PHYSICIANS, [facility] Consulting Unav ailable BRITTANEYYING Primary Care [...] Consulting Unavailable KELSEA FLORES Consulting Unavaila ble [facility] GENERIC Consul ting Unavailable PHYSICIANS, [facility] Consulting Unav ailable LATOSHA PARISI Consulting [...] Provider Dr. Remedios Kessler DO Attending Provider Alyec KENNEDY, Dr. Mar Palm Other Provider Bennie KENNEDY, Dr. Zamora Referring Provider [phone] Bennie KENNEDY, Dr. Zamora Emergency Provider [phone] Kvng Watkins DO Admit Provider [phone] Dr. Kvng Watkins DO Other Provider [phone] Gómez KENNEDY, Dr. Connor Attending Provider June GARCIA, Dr. Calderon Attending Provider Dudley KENNEDY, Dr. Ivone Reese Attending Provider Gómez KENNEDY, Dr. Connor Other Provider Bryson KENNEDY, Dr. Pinto Primary Care Provider Tiffanieoh ventura PerezNico GARCIA, Dr. Wagoner Emergency Provider Gómez KENNEDY, Dr. Connor Admit Provider Jennifer KENNEDY, Dr. Long Primary Care Provider [phone] Ethan Mayorga Attending Provider Unavailable Jennifer RENE, Ethan Referring Provider [facility] ELLIOTTCSvetlana Attending Provider Yu KENNEDY, Dr. Abarca Attending [...] Attending Provider Meghan Turcios Referring Provider [phone] Cristobal KENNEDY, Dr. Killian Attending Provider Jennifer KENNEDY, Dr. Long Primary Care Provider [phone] Dr. Remedios Kessler DO Attending Provider Bryson KENNEDY, Dr. Pinto Attending Provider Unavaila Dr. Nick Henderson DO Attending Provider Dr. Judd Galvin DO Attending Provider [phone] Diane TORRE, Dr. Tariq Attending Provider Melissa, Jayaprakas Consulting Unavailable Jopperi, Judd Admitting Unavailable Koram, Mar Arpita Attending Unavailable Rodriguez, Ethan Primary Care Unavailable Jopperi, Judd Consulting Unavailable Remedios Kessler Consulting Unavailable Gudla, Millie Primary Care Unavailable Gudla, Millie Referring Unavailable Gudla, Millie Attending Unavailable Melissa, Jayaprakas Consulting Unavailable Gómez, Nikolas Admitting Unavailable Gómez, Nikolas Attending Unavailable Gudla, Millie Primary Care Unavailable Melissa, Jayaprakas Consulting Unavailable Kvng Watkins Admitting Unavailable Gómez, Nikolas Attending Unavailable Noah Avery Referring Unavailable Rodriguez, Ethan Primary Care Unavailable Kvng Watknis Consulting Unavailable Koram, Mar Arpita Consulting Unavailable Jopperi, Judd Consulting Unavailable Gudla Lesli RENEthi Attending Unavailable Rodriguez, Ethan Primary Care Unavailable Jeffery Veloz Attending Unavailable Rodriguez, Ethan Primary Care Unavailable Rodriguez, Ethan Primary Care Unavailable Rodriguez Ethan RENE Attending Unavailable Melissa, Jayaprakas Attending Unavailable Melissa, Jayaprakas Referring Unavailable Rodriguez, Ethan Primary Care Unavailable Rodriguez Ethan RENE Attending Unavailable Rodriguez, Ethan Primary Care Unavailable Gudla Millie RENE Attending Unavailable Rodriguez, Ethan Primary Care Unavailable Rodriguez Ethan RENE Attending Unavailable Rodriguez, Ethan Primary Care Unavailable Gudla OLSLesliMillie Attending Unavailable Rodriguez, Ethan Primary Care Unavailable Gudla, Millie Primary Care Unavailable Gudla Lesli RENEthi Attending Unavailable Gudla, Millie Primary Care Unavailable Gudla OLS Millie Referring Unavailable Gudla Millie RENE Attending Unavailable Gudla, Millie Primary Care Unavailable Gudla OLS Millie Attending Unavailable Rodriguez, Ethan Primary Care Unavailable Sadia Phoenix Attending Unavailable Gudla, Millie Primary Care Unavailable Constantin Jain Attending Unavailable Melissa, Jayaprakas Consulting Unavailable Nick Gallegos Attending Unavailable Kvng Watkins Admitting Unavailable AveryNoah Referring Unavailable Rodriguez, Ethan Primary Care Unavailable Kvng Watkins Consulting Unavailable Korkaykay, Mar Palm Consulting Unavailable Kvng Watkins Attending Unavailable MelissaAngie reyes Consulting Unavailable Gudla, Millie Primary Care Unavailable Gómez, Nikolas Admitting Unavailable Svetlana Harrison Attending Unavailable Gómez, Nikolas Consulting Unavailable Gómez, Nikolas Attending Unavailable Gómez, Nikolas Attending Unavailable Judd Galvin Consulting Unavailable Gómez, Nikolas Consulting Unavailable Adilene Rainey Attending Unavailable Rodriguez, Ethan Primary Care Unavailable Rodriguez, Ethan Referring Unavailable Rodriguez, Ethan Primary Care Unavailable Chioma Vigil Attending Unavailable Rodriguez, Ethan Referring Unavailable KorMar mccracken Attending Unavailable Judd Galvin Attending Unavailable Rodriguez OLS, Ethan Referring Unavailable Rodriguez EDGARD, Ethan Attending Unavailable Rodriguez, Ethan Primary Care Unavailable Rodriguez OLS, Ethan Referring Unavailable Rodriguez EDGARD, Ethan Attending Unavailable Rodriguez, Ethan Primary Care [...] Unavailable Gudla Sadie RENEyothi Attending Unavailable Gudla EDGARD Millie Attending Unavailable Gudla, Millie Primary Care Unavailable Gudla, Millie Primary Care Unavailable Gudla Sadie RENEyothi Attending Unavailable Gudla EDGARD Millie Attending Unavailable Gudla, Millie Primary Care Unavailable Gudla EDGARD Millie Attending Unavailable Rodriguez, Ethan Primary Care Unavailable Gudla Sadie RENEyothi Attending Unavailable Gudla, Millie Primary Care Unavailable Gudla EDGARD Millie Attending Unavailable Gudla, Millie Primary Care Unavailable Gudla, Millie Primary Care Unavailable Gudla EDGARD Millie Attending Unavailable Gudla, Millie Primary Care Unavailable Gudla EDGARD Millie Attending Unavailable Gudla EDGARD Millie Attending Unavailable Rodriguez, Ethan Primary Care Unavailable Rodriguez EDGARD, Ethan Attending Unavailable Rodriguez, Ethan Primary Care Unavailable Gudla, Millie Primary Care Unavailable Gudla OLS, Millie Attending Unavailable Sheldon Toribio Attending Unavailable Rodriguez, Ethan Primary Care Unavailable Gudla OLS, Millie Attending Unavailable Gudla OLS, Millie Referring Unavailable Gudla, Millie Primary Care Unavailable Gudla, Millie Primary Care Unavailable Gudla OLS, Millie Attending Unavailable Gudla OLS, Millie Attending Unavailable Rodriguez, Ethan Primary Care Unavailable Rodriguez, Ethan Primary Care Unavailable Wilbert Cueto Attending Unavailable Gudla, Millie Primary Care Unavailable Ying Contreras Attending Unavailable Rodriguez, Ethan Primary Care Unavailable Gudla OLS, Millie Attending Unavailable Angie Torres Consulting Unavailable Judd Galvin Admitting Unavailable Alyce, Mar Arpita Attending Unavailable Rodriguez, Ethan Primary Care Unavailable Judd Galvin Consulting Unavailable Remedios Kessler Consulting Unavailable Koram, Mar Arpita Consulting Unavailable Remedios Kessler Attending Unavailable Esmeam, Mar Arpita Referring Unavailable Nick Gallegos Attending Unavailable Brandt Mendez Referring Unavailable Gudla, Millie Primary Care Unavailable Brandt Mendez Attending Unavailable Gudla, Millie Primary Care Unavailable Tevin Nicholas Attending Unavailable Rodriguez, Ethan Primary Care Unavailable Jeffery Veloz Attending Unavailable Rodriguez, Ethan Referring Unavailable Judd Galvin Attending Unavailable Rodriguez, Ethan Primary Care Unavailable Ivone Buckner Attending Unavailable Gudla, Millie Primary Care Unavailable Gudla OLS, Millie Attending Unavailable Allergies Allergy Classification Reported Allergen(s) Allergy Type Date of Onset Reaction(s) Facility (20 sources) Iodine Compounds; Translations: [Unknown] Propensity to adverse reactions to drug 7 GI Intolerance, Rash [facility] Work Phone: (6 sources) Iodine And Iodide Containing Products Propensity to adverse reactions to drug 7 GI Intolerance [facility] (20 sources) Shellfish; Translations: [SHELLFISH DERIVED] Propensity to adverse reactions to drug 4 GI Intolerance [facility] (12 sources) Fish derivative; Translations: [FISH DERIVED] Propensity to adverse reactions to drug 4 GI Intolerance [facility] Work Phone: (10 sources) Iodine Drug Allergy 5 [facility] (1 source) Iodine Drug Allergy 5 [facility] Repository Medications Current Medications Medication Drug Class(es) [...] 24 hours. take 2 tablets by mo uth every six hours as needed for pain [...] docusate sodium 50 mg / sharon osides, snf 8.6 mg oral tablet (20 sources) Start: [...] (eight) hours . Active lactobacillus rhamnosus gg [id number] unt oral capsule (19 sources) Start: 07-18-2024 Start: 03-05-2024 take 1 capsule by [facility] once daily in the morning [...] by mouth every morning . 02/28/2024 Active rimnptup-ixd-bykp fum-folic ac (Thera-M) 19 mg iron- 400 mcg Tab (9 sources) Start: 03-05-2024 take 1 tablet by mouth once daily in the morning tllyxsbh-swy-pjaa fum-folic ac (Thera-M) 19 mg iron- 400 [...] Opioid Antagonist naloxone (NARC AN) 4 mg/actuation [place] Administer 1 (one) spray (4 mg total) [...] on 4 mg take 1 tablet by [facility] every eight hours as needed for nausea ondansetron (ZOFRAN) 4 MG tablet Take 1 (one) tablet (4 mg total) by mouth every 8 (eight) hours as needed for nausea . Active oxyCODONE hydrochloride 5 mg oral tablet (20 sources) Opioid Agonist Start: 03-11-2024 End: 07-18-2024 take 1 capsule by mo [facility] every six hours as needed for [...] Start: 08-13-2024 End: 08-17-2024 polyethylene glycol 3350 [id number] mg powder for oral solution (10 sources) [...] Drug Class(es) Dates Sig (Normalized) Sig (Original) [id number] 200 actuat albuterol 0.09 mg/actuat metered dose [...] injection 2 mg naloxone (NARCAN) 4 mg/actuation [place] (6 sources) End: 11-23-2023 naloxone (NARCAN) 4 mg/actuation [place] Administer 1 (one) spray (4 mg total) into one nostril as needed (OPIOID OVERDOSE) Administer 1 spray into one nostril for known or suspected opioid overdose. If patient worsens or does not respond, may repeat in 2-3 minutes. . 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, [address] Calcium [Mass/Vol] 9.3 mg/dL Normal 7.6-11.0 [facility] Comment on above: Order Comment: 105.1 Performed By: #### L 500.2500, L501.6710, L100.0100 ####[facility] [address] [place], [address] Chloride [Moles/Vol] 95 mmol/L Low 98-108 [facility] Comment on above: Order Comment: 105.1 Performed By: #### L 500.2500, L501.6710, L100.0100 ####[facility] [address] [place], [address] CO2 [Moles/Vol] 27.7 mmol/L Normal 21.0-32.0 [facility] Comment on above: Order Comment: 105.1 Performed By: #### L 500.2500, L501.6710, L100.0100 ####[facility] [address] [place], [address] Creatinine [Mass/Vol] 1.30 mg/dL High 0.70-1.20 [facility] Comment on above: Order Comment: 105.1 Performed By: #### L 500.2500, L501.6710, L100.0100 ####[facility] [address] [place], [address] GAP 11 Normal 5-15 [facility] Comment on above: Order Comment: 105.1 Performed By: #### L 500.2500, L501.6710, L100.0100 ####[facility] [address] [place], [address] GFR/1.73 sq M.predicted among non-blacks MDRD (S/P/Bld) [Vol rate/Area] 46 mL/min/{1.73_m2} Low >60 [facility] Comment on above: Order Comment: 105.1 Result Comment: mL/m in/1.73m2 CKD-EPI Creatinine Equation (2020) Performed By: #### L 500.2500, L501.6710, L100.0100 ####[facility] [address] [place], [address] Glucose [Mass/Vol] 116 mg/dL High 70-99 [facility] Comment on above: Order Comment: 105.1 Performed By: #### L 500.2500, L501.6710, L100.0100 ####[facility] [address] [place], [address] Potassium [Moles/Vol] 3.2 mmol/L Low 3.3-5.1 [facility] Comment on above: Order Comment: 105.1 Performed By: #### L 500.2500, L501.6710, L100.0100 ####[facility] [address] [place], [address] Sodium [Moles/Vol] 134 mmol/L Normal 133-145 [facility] Comment on above: Order Comment: 105.1 Performed By: #### L 500.2500, L501.6710, L100.0100 ####[facility] [address] [place], [address] Urea nitrogen [Mass/Vol] 44 mg/dL High 4-19 [facility] Comment on above: Order Comment: 105.1 Performed By: #### L 500.2500, L501.6710, L100.0100 ####[facility] [address] [place], [address] CBC W/Diff, Automatedon 07-0 8-2025 Absolute Lymph 0.39 X10 3/uL Low 0.83-4.51 [facility] Comment on above: Order Comment: 105.1 Performed By: #### L 500.2500, L501.6710, L100.0100 ####[facility] [address] [place], [address] Absolute Neut 2.2 X10 3/uL Normal 2.0-7.7 [facility] Comment on above: Order Comment: 105.1 Performed By: #### L 500.2500, L501.6710, L100.0100 ####[facility] [address] [place], [address] Basophils/100 WBC (Bld) 0.6 % Normal 0-1 [facility] Comment on above: Order Comment: 105.1 Performed By: #### L 500.2500, L501.6710, L100.0100 ####[facility] [address] [place], [address] Eosinophils/100 WBC (Bld) 5.8 % High 0-5 [facility] Comment on above: Order Comment: 105.1 Performed By: #### L 500.2500, L501.6710, L100.0100 ####[facility] [address] [place], [address] Erythrocyte distribution width (RBC) [Ratio] 18.4 % High 11.6-14.6 [facility] Comment on above: Order Comment: 105.1 Performed By: #### L 500.2500, L501.6710, L100.0100 ####[facility] [address] [place], [address] Hematocrit (Bld) [Volume fraction] 28.7 % Low 37-47 [facility] Comment on above: Order Comment: 105.1 Performed By: #### L 500.2500, L501.6710, L100.0100 ####[facility] [address] [place], [address] Hemoglobin (Bld) [Mass/Vol] 9.0 g/dL Low 12.0-15.0 [facility] Comment on above: Order Comment: 105.1 Performed By: #### L 500.2500, L501.6710, L100.0100 ####[facility] [address] [place], [address] IG% 1.200 High 0.0-0.9 [facility] Comment on above: Order Comment: 105.1 Result Comment: IG% - Immature Granulocytes (promyelocytes, myelocytes andmetamyelocytes) > 1% indicates that a LEFT SHIFT is Present. Performed By: #### L 500.2500, L501.6710, L100.0100 ####[facility] [address] [place], [address] Lymphocytes/100 WBC (Bld) 11.9 % Low 19-41 [facility] Comment on above: Order Comment: 105.1 Performed By: #### L 500.2500, L501.6710, L100.0100 ####[facility] [address] [place], [address] MCH (RBC) [Entitic mass] 28.1 pg Normal 27.0-32.0 [facility] Comment on above: Order Comment: 105.1 Performed By: #### L 500.2500, L501.6710, L100.0100 ####[facility] [address] [place], [address] MCHC (RBC) [Mass/Vol] 31.4 g/dL Low 32-36 [facility] Comment on above: Order Comment: 105.1 Performed By: #### L 500.2500, L501.6710, L100.0100 ####[facility] [address] [place], [address] MCV (RBC) [Entitic vol] 89.7 fL Normal 81-99 [facility] Comment on above: Order Comment: 105.1 Performed By: #### L 500.2500, L501.6710, L100.0100 ####[facility] [address] [place], [address] Monocytes/100 WBC (Bld) 14.0 % High 0-10 [facility] Comment on above: Order Comment: 105.1 Performed By: #### L 500.2500, L501.6710, L100.0100 ####[facility] [address] [place], [address] Neutrophils/100 WBC (Bld) 66.5 % Normal 47-70 [facility] Comment on above: Order Comment: 105.1 Performed By: #### L 500.2500, L501.6710, L100.0100 ####[facility] [address] [place], [address] Nucleated RBC (Bld) [#/Vol] 0 10*3/uL Normal 0-5 [facility] Comment on above: Order Comment: 105.1 Performed By: #### L 500.2500, L501.6710, L100.0100 ####[facility] [address] [place], [address] Platelet mean volume (Bld) [Entitic vol] 11.5 fL Normal 6.2-12.0 [facility] Comment on above: Order Comment: 105.1 Performed By: #### L 500.2500, L501.6710, L100.0100 ####[facility] [address] [place], [address] Platelets (Bld) [#/Vol] 144 10*3/uL Low 150-450 [facility] Comment on above: Order Comment: 105.1 Performed By: #### L 500.2500, L501.6710, L100.0100 ####[facility] [address] [place], [address] RBC (Bld) [#/Vol] 3.20 10*6/uL Low 4.2-5.4 [facility] Comment on above: Order Comment: 105.1 Performed By: #### L 500.2500, L501.6710, L100.0100 ####[facility] [address] [place], [address] RDW SD 60.4 fl High 35.1-43.9 [facility] Comment on above: Order Comment: 105.1 Performed By: #### L 500.2500, L501.6710, L100.0100 ####[facility] [address] [place], [address] WBC (Bld) [#/Vol] 3.3 10*3/uL Low 4.4-11.0 [facility] Comment on above: Order Comment: 105.1 Performed By: #### L 500.2500, L501.6710, L100.0100 ####[facility] [address] [place], [address] CRPon 12-03-2024 C-REACTIVE PROT 11.40 mg/L High 0.0-3.0 [facility] Comment on above: Order Comment: 105.1 Performed By: #### L 500.2500, L501.6710, L100.0100 ####[facility] [address] [place], [address] Basic Metabolic Profile (BMP )on 11-26-2024 BUN/CRE 33.2 RATIO High 10-20 [facility] Comment on above: Order Comment: 105.1 Performed By: #### L 500.2500, L501.6710, L100.0100 ####[facility] [address] [place], [address] Calcium [Mass/Vol] 9.5 mg/dL Normal 7.6-11.0 [facility] Comment on above: Order Comment: 105.1 Performed By: #### L 500.2500, L501.6710, L100.0100 ####[facility] [address] [place], [address] Chloride [Moles/Vol] 93 mmol/L Low 98-108 [facility] Comment on above: Order Comment: 105.1 Performed By: #### L 500.2500, L501.6710, L100.0100 ####[facility] [address] [place], [address] CO2 [Moles/Vol] 29.0 mmol/L Normal 21.0-32.0 [facility] Comment on above: Order Comment: 105.1 Performed By: #### L 500.2500, L501.6710, L100.0100 ####[facility] [address] [place], [address] Creatinine [Mass/Vol] 1.34 mg/dL High 0.70-1.20 [facility] Comment on above: Order Comment: 105.1 Performed By: #### L 500.2500, L501.6710, L100.0100 ####[facility] [address] [place], [address] GAP 12 Normal 5-15 [facility] Comment on above: Order Comment: 105.1 Performed By: #### L 500.2500, L501.6710, L100.0100 ####[facility] [address] [place], [address] GFR/1.73 sq M.predicted among non-blacks MDRD (S/P/Bld) [Vol rate/Area] 45 mL/min/{1.73_m2} Low >60 [facility] Comment on above: Order Comment: 105.1 Result Comment: mL/m in/1.73m2 CKD-EPI Creatinine Equation (2020) Performed By: #### L 500.2500, L501.6710, L100.0100 ####[facility] [address] [place], [address] Glucose [Mass/Vol] 96 mg/dL Normal 70-99 [facility] Comment on above: Order Comment: 105.1 Performed By: #### L 500.2500, L501.6710, L100.0100 ####[facility] [address] [place], [address] Potassium [Moles/Vol] 3.4 mmol/L Normal 3.3-5.1 [facility] Comment on above: Order Comment: 105.1 Performed By: #### L 500.2500, L501.6710, L100.0100 ####[facility] [address] [place], [address] Sodium [Moles/Vol] 134 mmol/L Normal 133-145 [facility] Comment on above: Order Comment: 105.1 Performed By: #### L 500.2500, L501.6710, L100.0100 ####[facility] [address] [place], [address] Urea nitrogen [Mass/Vol] 45 mg/dL High 4-19 [facility] Comment on above: Order Comment: 105.1 Performed By: #### L 500.2500, L501.6710, L100.0100 ####[facility] [address] [place], [address] CBC W/Diff, Automatedon 07-0 -2024 Absolute Lymph 0.46 X10 3/uL Low 0.83-4.51 [facility] Comment on above: Order Comment: 105.1 Performed By: #### L 500.2500, L501.6710, L100.0100 ####[facility] [address] [place], [address] Absolute Neut 2.7 X10 3/uL Normal 2.0-7.7 [facility] Comment on above: Order Comment: 105.1 Performed By: #### L 500.2500, L501.6710, L100.0100 ####[facility] [address] [place], [address] Basophils/100 WBC (Bld) 0.5 % Normal 0-1 [facility] Comment on above: Order Comment: 105.1 Performed By: #### L 500.2500, L501.6710, L100.0100 ####[facility] [address] [place], [address] Eosinophils/100 WBC (Bld) 5.3 % High 0-5 [facility] Comment on above: Order Comment: 105.1 Performed By: #### L 500.2500, L501.6710, L100.0100 ####[facility] [address] [place], [address] Erythrocyte distribution width (RBC) [Ratio] 18.8 % High 11.6-14.6 [facility] Comment on above: Order Comment: 105.1 Performed By: #### L 500.2500, L501.6710, L100.0100 ####[facility] [address] [place], [address] Hematocrit (Bld) [Volume fraction] 30.7 % Low 37-47 [facility] Comment on above: Order Comment: 105.1 Performed By: #### L 500.2500, L501.6710, L100.0100 ####[facility] [address] [place], [address] Hemoglobin (Bld) [Mass/Vol] 9.5 g/dL Low 12.0-15.0 [facility] Comment on above: Order Comment: 105.1 Performed By: #### L 500.2500, L501.6710, L100.0100 ####[facility] [address] [place], [address] IG% 0.800 Normal 0.0-0.9 [facility] Comment on above: Order Comment: 105.1 Result Comment: IG% - Immature Granulocytes (promyelocytes, myelocytes andmetamyelocytes) > 1% indicates that a LEFT SHIFT is Present. Performed By: #### L 500.2500, L501.6710, L100.0100 ####[facility] [address] [place], [address] Lymphocytes/100 WBC (Bld) 11.6 % Low 19-41 [facility] Comment on above: Order Comment: 105.1 Performed By: #### L 500.2500, L501.6710, L100.0100 ####[facility] [address] [place], [address] MCH (RBC) [Entitic mass] 27.5 pg Normal 27.0-32.0 [facility] Comment on above: Order Comment: 105.1 Performed By: #### L 500.2500, L501.6710, L100.0100 ####[facility] [address] [place], [address] MCHC (RBC) [Mass/Vol] 30.9 g/dL Low 32-36 [facility] Comment on above: Order Comment: 105.1 Performed By: #### L 500.2500, L501.6710, L100.0100 ####[facility] [address] [place], [address] MCV (RBC) [Entitic vol] 88.7 fL Normal 81-99 [facility] Comment on above: Order Comment: 105.1 Performed By: #### L 500.2500, L501.6710, L100.0100 ####[facility] [address] [place], [address] Monocytes/100 WBC (Bld) 13.6 % High 0-10 [facility] Comment on above: Order Comment: 105.1 Performed By: #### L 500.2500, L501.6710, L100.0100 ####[facility] [address] [place], [address] Neutrophils/100 WBC (Bld) 68.2 % Normal 47-70 [facility] Comment on above: Order Comment: 105.1 Performed By: #### L 500.2500, L501.6710, L100.0100 ####[facility] [address] [place], [address] Nucleated RBC (Bld) [#/Vol] 0 10*3/uL Normal 0-5 [facility] Comment on above: Order Comment: 105.1 Performed By: #### L 500.2500, L501.6710, L100.0100 ####[facility] [address] [place], [address] Platelet mean volume (Bld) [Entitic vol] 11.3 fL Normal 6.2-12.0 [facility] Comment on above: Order Comment: 105.1 Performed By: #### L 500.2500, L501.6710, L100.0100 ####[facility] [address] [place], [address] Platelets (Bld) [#/Vol] 154 10*3/uL Normal 150-450 [facility] Comment on above: Order Comment: 105.1 Performed By: #### L 500.2500, L501.6710, L100.0100 ####[facility] [address] [place], [address] RBC (Bld) [#/Vol] 3.46 10*6/uL Low 4.2-5.4 [facility] Comment on above: Order Comment: 105.1 Performed By: #### L 500.2500, L501.6710, L100.0100 ####[facility] [address] [place], [address] RDW SD 60.2 fl High 35.1-43.9 [facility] Comment on above: Order Comment: 105.1 Performed By: #### L 500.2500, L501.6710, L100.0100 ####[facility] [address] [place], [address] WBC (Bld) [#/Vol] 4.0 10*3/uL Low 4.4-11.0 [facility] Comment on above: Order Comment: 105.1 Performed By: #### L 500.2500, L501.6710, L100.0100 ####[facility] [address] [place], [address] CRPon 11-26-2024 C-REACTIVE PROT 21.10 mg/L High 0.0-3.0 [facility] Comment on above: Order Comment: 105.1 Performed By: #### L 500.2500, L501.6710, L100.0100 ####[facility] [address] [place], [address] Gram Stainon 11-21-2024 GS LT HALLUX Gram Stain 2+ Red Blood Cells No organisms seen Normal [facility] Comment on above: Performed By: #### M 100.3000, M100.2000 ####[facility] [address] [place], [address] Wound Cultureon 11-21-2024 WC LT HALLUX No growth aerobically. Normal [facility] Comment on above: Performed By: #### M 100.3000, M100.2000 ####[facility] [address] [place], [address] Gram stainOrdered By: Ying Contreras on 11-20-2024 Microscopic observation Gram stain Nom (Unsp spec) [facility] Absolute lymphocyte countOrd ered By: Millie Massey on 11-18-2024 Lymphocytes Auto (Unsp spec) [#/Vol] 0.51 10*3/uL Low 0.83-4.51 [facility] Anion gap in Serum or Plasma Ordered By: Millie Massey on 11-18-2024 Anion gap [Moles/Vol] 16 mmol/L High 5-15 [facility] Automated lymphocyte count a s percentage of total leukocytesOrdered By: Millie Massey on 11-18-2024 Lymphocytes/100 WBC Auto (Unsp spec) 7.3 % Low 19-41 [facility] BUN/creatinine ratioOrdered By: Millie Massey on 11-18-2024 Urea nitrogen/Creatinine [Mass ratio] 45.1 mg/mg High 10-20 [facility] Basic Metabolic Profile (BMP )on 11-18-2024 Urea nitrogen [Mass/Vol] 106 mg/dL Invalid Interpretation Code 09-14 [facility] Comment on above: Order Comment: 105-1 Result Comment: Crit ical Result(s) Called at:11-18-24 at 11:08 to Joyce by: Susan Arias??Results read back by same. Performed By: #### L 500.2500, L100.0100, L501.6710 ####[facility] [address] [place], [address] Basophil percentageOrdered B y: Millie Massey on 11-18-2024 Basophils/100 WBC (Bld) 0.3 % 0-1 [facility] CBC W/Diff, Automatedon 06- Absolute Lymph 0.51 X10 3/uL Low 0.83-4.51 [facility] Comment on above: Order Comment: 105-1 Performed By: #### L 500.2500, L100.0100, L501.6710 ####[facility] [address] [place], [address] Absolute Neut 5.5 X10 3/uL Normal 2.0-7.7 [facility] Comment on above: Order Comment: 105-1 Performed By: #### L 500.2500, L100.0100, L501.6710 ####[facility] [address] [place], [address] Basophils/100 WBC (Bld) 0.3 % Normal 0-1 [facility] Comment on above: Order Comment: 105-1 Performed By: #### L 500.2500, L100.0100, L501.6710 ####[facility] [address] [place], [address] Eosinophils/100 WBC (Bld) 4.1 % Normal 0-5 [facility] Comment on above: Order Comment: 105-1 Performed By: #### L 500.2500, L100.0100, L501.6710 ####[facility] [address] [place], [address] Erythrocyte distribution width (RBC) [Ratio] 18.2 % High 11.6-14.6 [facility] Comment on above: Order Comment: 105-1 Performed By: #### L 500.2500, L100.0100, L501.6710 ####[facility] [address] [place], [address] Hematocrit (Bld) [Volume fraction] 33.8 % Low 37-47 [facility] Comment on above: Order Comment: 105-1 Performed By: #### L 500.2500, L100.0100, L501.6710 ####[facility] [address] [place], [address] Hemoglobin (Bld) [Mass/Vol] 10.5 g/dL Low 12.0-15.0 [facility] Comment on above: Order Comment: 105-1 Performed By: #### L 500.2500, L100.0100, L501.6710 ####[facility] [address] [place], [address] IG% 0.600 Normal 0.0-0.9 [facility] Comment on above: Order Comment: 105-1 Result Comment: IG% - Immature Granulocytes (promyelocytes, myelocytes andmetamyelocytes) > 1% indicates that a LEFT SHIFT is Present. Performed By: #### L 500.2500, L100.0100, L501.6710 ####[facility] [address] [place], [address] Lymphocytes/100 WBC (Bld) 7.3 % Low 19-41 [facility] Comment on above: Order Comment: 105-1 Performed By: #### L 500.2500, L100.0100, L501.6710 ####[facility] [address] [place], [address] MCH (RBC) [Entitic mass] 27.5 pg Normal 27.0-32.0 [facility] Comment on above: Order Comment: 105-1 Performed By: #### L 500.2500, L100.0100, L501.6710 ####[facility] [address] [place], [address] MCHC (RBC) [Mass/Vol] 31.1 g/dL Low 32-36 [facility] Comment on above: Order Comment: 105-1 Performed By: #### L 500.2500, L100.0100, L501.6710 ####[facility] [address] [place], [address] MCV (RBC) [Entitic vol] 88.5 fL Normal 81-99 [facility] Comment on above: Order Comment: 105-1 Performed By: #### L 500.2500, L100.0100, L501.6710 ####[facility] [address] [place], [address] Monocytes/100 WBC (Bld) 9.4 % Normal 0-10 [facility] Comment on above: Order Comment: 105-1 Performed By: #### L 500.2500, L100.0100, L501.6710 ####[facility] [address] [place], [address] Neutrophils/100 WBC (Bld) 78.3 % High 47-70 [facility] Comment on above: Order Comment: 105-1 Performed By: #### L 500.2500, L100.0100, L501.6710 ####[facility] [address] [place], [address] Nucleated RBC (Bld) [#/Vol] 0 10*3/uL Normal 0-5 [facility] Comment on above: Order Comment: 105-1 Performed By: #### L 500.2500, L100.0100, L501.6710 ####[facility] [address] [place], [address] Platelet mean volume (Bld) [Entitic vol] 11.8 fL Normal 6.2-12.0 [facility] Comment on above: Order Comment: 105-1 Performed By: #### L 500.2500, L100.0100, L501.6710 ####[facility] [address] [place], [address] Platelets (Bld) [#/Vol] 179 10*3/uL Normal 150-450 [facility] Comment on above: Order Comment: 105-1 Performed By: #### L 500.2500, L100.0100, L501.6710 ####[facility] [address] [place], [address] RBC (Bld) [#/Vol] 3.82 10*6/uL Low 4.2-5.4 [facility] Comment on above: Order Comment: 105-1 Performed By: #### L 500.2500, L100.0100, L501.6710 ####[facility] [address] [place], [address] RDW SD 57.6 fl High 35.1-43.9 [facility] Comment on above: Order Comment: 105-1 Performed By: #### L 500.2500, L100.0100, L501.6710 ####[facility] [address] [place], [address] WBC (Bld) [#/Vol] 7.0 10*3/uL Normal 4.4-11.0 [facility] Comment on above: Order Comment: 105-1 Performed By: #### L 500.2500, L100.0100, L501.6710 ####[facility] [address] [place], [address] CRPon 11-18-2024 C-REACTIVE PROT 21.20 mg/L High 0.0-3.0 [facility] Comment on above: Order Comment: 105-1 Performed By: #### L 500.2500, L100.0100, L501.6710 ####[facility] [address] [place], [address] Carbon dioxide, total [Moles /volume] in Central venous bloodOrdered By: Millie Massey on 11-18-2024 CO2 [Moles/Vol] 26.5 mmol/L 21.0-32.0 [facility] Chloride assayOrdered By: Carter Massey on 11-18-2024 Chloride [Moles/Vol] 92 mmol/L Low 98-108 [facility] Eosinophil percentageOrdered By: Millie Massey on 11-18-2024 Eosinophils/100 WBC (Bld) 4.1 % 0-5 [facility] Erythrocyte distribution wid th ratioOrdered By: Millie Massey on 11-18-2024 Erythrocyte distribution width (RBC) [Ratio] 18.2 % High 11.6-14.6 [facility] Erythrocyte distribution wid th standard deviationOrdered By: Millie Massey on 11-18-2024 Erythrocyte distribution width (RBC) [Ratio] 57.6 fl High 35.1-43.9 [facility] Glomerular filtration rate ( GFR) estimation/1.73 sq m using serum, plasma, or whole bOrdered By: Millie Massey on 11-18-2024 GFR/1.73 sq M.predicted among non-blacks MDRD (S/P/Bld) [Vol rate/Area] 23 mL/min/{1.73_m2} Low >60 [facility] Hematocrit Auto (Bld) [Volum e fraction]Ordered By: Millie Massey on 11-18-2024 Hematocrit (Bld) [Volume fraction] 33.8 % Low 37-47 [facility] Hemoglobin measurementOrdere d By: Millie Massey on 11-18-2024 Hemoglobin (Bld) [Mass/Vol] 10.5 g/dL Low 12.0-15.0 [facility] Immature granulocytes/100 WB C Auto (Bld)Ordered By: Millie Massye on 11-18-2024 Immature granulocytes/100 WBC (Bld) 0.600 % 0.0-0.9 [facility] MCV (mean corpuscular volume ) determinationOrdered By: Millie Massey on 11-18-2024 MCV (RBC) [Entitic vol] 88.5 fL 81-99 [facility] Mean corpuscular hemoglobin (MCH) determinationOrdered By: Millie Massey on 11-18-2024 MCH (RBC) [Entitic mass] 27.5 pg 27.0-32.0 [facility] Monocyte percentageOrdered B y: Millie Massey on 11-18-2024 Monocytes/100 WBC (Bld) 9.4 % 0-10 [facility] Neutrophil percentageOrdered By: Millie Massey on 11-18-2024 Neutrophils/100 WBC (Bld) 78.3 % High 47-70 [facility] Platelet countOrdered By: Carter Massey on 11-18-2024 Platelets (Bld) [#/Vol] 179 10*3/uL 150-450 [facility] Potassium measurement (mass/ volume)Ordered By: Millie Massey on 11-18-2024 Potassium (Unsp spec) [Mass/Vol] 4.0 mmol/L 3.3-5.1 [facility] RBC Auto (Bld) [#/Vol]Ordere d By: Millie Massey on 11-18-2024 RBC (Bld) [#/Vol] 3.82 10*6/uL Low 4.2-5.4 [facility] Serum creatinine measurement (mass/volume)Ordered By: Millie Massey on 11-18-2024 Creatinine [Mass/Vol] 2.35 mg/dL High 0.70-1.20 [facility] Serum glucose measurement (m ass/volume)Ordered By: Millie Massey on 11-18-2024 Glucose [Mass/Vol] 112 mg/dL High 70-99 [facility] Serum or plasma C reactive p rotein measurement (mass/volume)Ordered By: Millie Massey on 11-18-2024 CRP [Mass/Vol] 21.20 mg/L High 0.0-3.0 [facility] Serum or plasma calcium megan urement (mass/volume)Ordered By: Millie Massey on 11-18-2024 Calcium [Mass/Vol] 11.7 mg/dL High 7.6-11.0 [facility] Serum or plasma urea nitroge n measurement (mass/volume)Ordered By: Millie Massey on 11-18-2024 Urea nitrogen [Mass/Vol] 106 mg/dL High 4-19 [facility] Sodium levelOrdered By: Silvana Massey on 11-18-2024 Sodium [Moles/Vol] 134 mmol/L 133-145 [facility] White blood cell (WBC) count Ordered By: Millie Massey on 11-18-2024 WBC (Bld) [#/Vol] 7.0 10*3/uL 4.4-11.0 [facility] TSH DL <= 0.005 mIU/L QnOrde red By: Millie Massey on 11-12-2024 TSH Qn 0.881 uIU/mL 0.300-4.20 0 [facility] Thyroid Stim Hormone (TSH)on 11-12-2024 TSH 0.881 uIU/mL Normal 0.300-4.20 0 [facility] Comment on above: Order Comment: 105 Performed By: #### L 501.9520 ####[facility] [address] [place], [address] Wound Cultureon 11-08-2024 WC Normal [facility] Comment on above: Performed By: #### M 100.2000, M100.3000 ####[facility] [address] [place], [address] CBC W/Diff, Automatedon 10-27 Absolute Lymph 0.44 X10 3/uL Low 0.83-4.51 [facility] Comment on above: Performed By: #### L 100.0100, L3000.0375, L501.6710 ####[facility] [address] [place], [address] Absolute Neut 5.2 X10 3/uL Normal 2.0-7.7 [facility] Comment on above: Performed By: #### L 100.0100, L3000.0375, L501.6710 ####[facility] [address] [place], [address] Basophils/100 WBC (Bld) 0.6 % Normal 0-1 [facility] Comment on above: Performed By: #### L 100.0100, L3000.0375, L501.6710 ####[facility] [address] [place], [address] Eosinophils/100 WBC (Bld) 3.6 % Normal 0-5 [facility] Comment on above: Performed By: #### L 100.0100, L3000.0375, L501.6710 ####[facility] [address] [place], [address] Erythrocyte distribution width (RBC) [Ratio] 17.1 % High 11.6-14.6 [facility] Comment on above: Performed By: #### L 100.0100, L3000.0375, L501.6710 ####[facility] [address] [place], [address] Hematocrit (Bld) [Volume fraction] 36.9 % Low 37-47 [facility] Comment on above: Performed By: #### L 100.0100, L3000.0375, L5.6710 ####[facility] [address] [place], [address] Hemoglobin (Bld) [Mass/Vol] 11.4 g/dL Low 12.0-15.0 [facility] Comment on above: Performed By: #### L 100.0100, L3000.0375, L5.6710 ####[facility] [address] [place], [address] IG% 0.300 Normal 0.0-0.9 [facility] Comment on above: Result Comment: IG% - Immature Granulocytes (promyelocytes, myelocytes andmetamyelocytes) > 1% indicates that a LEFT SHIFT is Present. Performed By: #### L 100.0100, L3000.0375, L5.6710 ####[facility] [address] [place], [address] Lymphocytes/100 WBC (Bld) 6.7 % Low 19-41 [facility] Comment on above: Performed By: #### L 100.0100, L3000.0375, L5.6710 ####[facility] [address] [place], [address] MCH (RBC) [Entitic mass] 27.0 pg Normal 27.0-32.0 [facility] Comment on above: Performed By: #### L 100.0100, L3000.0375, L501.6710 ####[facility] [address] [place], [address] MCHC (RBC) [Mass/Vol] 30.9 g/dL Low 32-36 [facility] Comment on above: Performed By: #### L 100.0100, L3000.0375, L501.6710 ####[facility] [address] [place], [address] MCV (RBC) [Entitic vol] 87.2 fL Normal 81-99 [facility] Comment on above: Performed By: #### L 100.0100, L3000.0375, L501.6710 ####[facility] [address] [place], [address] Monocytes/100 WBC (Bld) 9.7 % Normal 0-10 [facility] Comment on above: Performed By: #### L 100.0100, L3000.0375, L501.6710 ####[facility] [address], [address] Neutrophils/100 WBC (Bld) 79.1 % High 47-70 [facility] Comment on above: Performed By: #### L 100.0100, L3000.0375, L501.6710 ####[facility] [address] [place], [address] Nucleated RBC (Bld) [#/Vol] 0 10*3/uL Normal 0-5 [facility] Comment on above: Performed By: #### L 100.0100, L3000.0375, L501.6710 ####[facility] [address] [place], [address] Platelet mean volume (Bld) [Entitic vol] 12.0 fL Normal 6.2-12.0 [facility] Comment on above: Performed By: #### L 100.0100, L3000.0375, L501.6710 ####[facility] [address] [place], [address] Platelets (Bld) [#/Vol] 189 10*3/uL Normal 150-450 [facility] Comment on above: Performed By: #### L 100.0100, L3000.0375, L501.6710 ####[facility] [address] [place], [address] RBC (Bld) [#/Vol] 4.23 10*6/uL Normal 4.2-5.4 [facility] Comment on above: Performed By: #### L 100.0100, L3000.0375, L501.6710 ####[facility] [address] [place], [address] RDW SD 54.8 fl High 35.1-43.9 [facility] Comment on above: Performed By: #### L 100.0100, L3000.0375, L501.6710 ####[facility] [address] [place], [address] WBC (Bld) [#/Vol] 6.6 10*3/uL Normal 4.4-11.0 [facility] Comment on above: Performed By: #### L 100.0100, L3000.0375, L501.6710 ####[facility] [address] [place] [place], [address] CRPon 11-05-2024 C-REACTIVE PROT 11.90 mg/L High 0.0-3.0 [facility] Comment on above: Performed By: #### L 100.0100, L3000.0375, L501.6710 ####[facility] [address] [place], [address] Gram Stainon 11-05-2024 GS LEFT GREAT TOE Gram Stain 3+ Gram positive cocci Rare Gram positive rods Rare Epithelial cells No White Blood Cells Normal [facility] Comment on above: Performed By: #### M 100.2000, M100.3000 ####[facility] [address] [place], [address] Gram stainOrdered By: Millie Massey on 11-05-2024 Microscopic observation Gram stain Nom (Unsp spec) [facility] Hepatitis Panel Acuteon 10-27 COMMENT Comment Normal . [facility] Comment on above: Order Comment: 105.1 Result Comment: Not infected with HCV unless early or acute infection issuspected (which may be delayed in an immunocompromisedindividual), or other evidence exists to indicate HCVinfection.Performed at: [facility] [id number] Director: Manjinder Babb PhD, Phone: [phone] Performed By: #### L 100.0100, L3000.0375, L501.6710 ####[facility] [address] [place], [address] HEP B CORE,IgM Negative Normal Negative [facility] Comment on above: Order Comment: 105.1 Performed By: #### L 100.0100, L3000.0375, L501.6710 ####[facility] [address] [place], [address] HEP B SURF AG Negative Normal Negative [facility] Comment on above: Order Comment: 105.1 Performed By: #### L 100.0100, L3000.0375, L501.6710 ####[facility] [address] [place], [address] HEP C VIRUS AB Non-Reactive Normal Non Reactive [facility] Comment on above: Order Comment: 105.1 Performed By: #### L 100.0100, L3000.0375, L501.6710 ####[facility] [address] [place], [place], [id number] HEPATITIS A-IgM Negative Normal Negative [facility] Comment on above: Order Comment: 105.1 Result Comment: A ne gative anti-HAV IgM result suggests no recent orcurrent HAV infection. Performed By: #### L 100.0100, L3000.0375, L501.6710 ####[facility] [address] [place], [address] Absolute lymphocyte countOrd ered By: Millie Massey on 11-04-2024 Lymphocytes Auto (Unsp spec) [#/Vol] 0.44 10*3/uL Low 0.83-4.51 [facility] Automated lymphocyte count a s percentage of total leukocytesOrdered By: Millie Massey on 11-04-2024 Lymphocytes/100 WBC Auto (Unsp spec) 6.7 % Low 19-41 [facility] Basophil percentageOrdered B y: Millieblanche Massey on 11-04-2024 Basophils/100 WBC (Bld) 0.6 % 0-1 [facility] Eosinophil percentageOrdered By: Millieblanche Massey on 11-04-2024 Eosinophils/100 WBC (Bld) 3.6 % 0-5 [facility] Erythrocyte distribution wid th ratioOrdered By: Millie Massey on 11-04-2024 Erythrocyte distribution width (RBC) [Ratio] 17.1 % High 11.6-14.6 [facility] Erythrocyte distribution wid th standard deviationOrdered By: Millieblanche Massey on 11-04-2024 Erythrocyte distribution width (RBC) [Ratio] 54.8 fl High 35.1-43.9 [facility] Hematocrit Auto (Bld) [Volum e fraction]Ordered By: Millie Massey on 11-04-2024 Hematocrit (Bld) [Volume fraction] 36.9 % Low 37-47 [facility] Hemoglobin measurementOrdere d By: Millie Massey on 11-04-2024 Hemoglobin (Bld) [Mass/Vol] 11.4 g/dL Low 12.0-15.0 [facility] Immature granulocytes/100 WB C Auto (Bld)Ordered By: Millie Massey on 11-04-2024 Immature granulocytes/100 WBC (Bld) 0.300 % 0.0-0.9 [facility] MCV (mean corpuscular volume ) determinationOrdered By: Millie Massey on 11-04-2024 MCV (RBC) [Entitic vol] 87.2 fL 81-99 [facility] Mean corpuscular hemoglobin (MCH) determinationOrdered By: Millie Massey on 11-04-2024 MCH (RBC) [Entitic mass] 27.0 pg 27.0-32.0 [facility] Monocyte percentageOrdered B y: Millie Massey on 11-04-2024 Monocytes/100 WBC (Bld) 9.7 % 0-10 [facility] Neutrophil percentageOrdered By: Millie Massey on 11-04-2024 Neutrophils/100 WBC (Bld) 79.1 % High 47-70 [facility] No Panel InformationOrdered By: Millie Massey on 11-04-2024 Comment . [facility] Platelet countOrdered By: Carter Massey on 11-04-2024 Platelets (Bld) [#/Vol] 189 10*3/uL 150-450 [facility] RBC Auto (Bld) [#/Vol]Ordere d By: Millie Massey on 11-04-2024 RBC (Bld) [#/Vol] 4.23 10*6/uL 4.2-5.4 [facility] Serum or plasma C reactive p rotein measurement (mass/volume)Ordered By: Millie Massey on 11-04-2024 CRP [Mass/Vol] 11.90 mg/L High 0.0-3.0 [facility] Serum or plasma hepatitis B virus surface antigen detection by immunoassayOrdered By: Millie Massey on 11-04-2024 HBV surface Ag IA Ql Negative Negative [facility] White blood cell (WBC) count Ordered By: Millie Massey on 11-04-2024 WBC (Bld) [#/Vol] 6.6 10*3/uL 4.4-11.0 [facility] Anion gap in Serum or Plasma Ordered By: Millie Massey on 10-30-2024 Anion gap [Moles/Vol] 11 mmol/L 5-15 [facility] BUN/creatinine ratioOrdered By: Millie Massey on 10-30-2024 Urea nitrogen/Creatinine [Mass ratio] 44.3 mg/mg High 10-20 [facility] Bilirubin, totalOrdered By: Millie Massey on 10-30-2024 Bilirubin [Mass/Vol] 0.26 mg/dL 0.00-1.30 [facility] CBC-Complete Blood Cnt No Di ffon 10-30-2024 Erythrocyte distribution width (RBC) [Ratio] 17.0 % High 11.6-14.6 [facility] Comment on above: Performed By: #### L 500.4050, L100.0500 ####[facility] [address] [place], [address] Hematocrit (Bld) [Volume fraction] 34.9 % Low 37-47 [facility] Comment on above: Performed By: #### L 500.4050, L100.0500 ####[facility] [address] [place], [address] Hemoglobin (Bld) [Mass/Vol] 10.6 g/dL Low 12.0-15.0 [facility] Comment on above: Performed By: #### L 500.4050, L100.0500 ####[facility] [address] [place], [address] MCH (RBC) [Entitic mass] 26.8 pg Low 27.0-32.0 [facility] Comment on above: Performed By: #### L 500.4050, L100.0500 ####[facility] [address] [place], [address] MCHC (RBC) [Mass/Vol] 30.4 g/dL Low 32-36 [facility] Comment on above: Performed By: #### L 500.4050, L100.0500 ####[facility] [address] [place], [address] MCV (RBC) [Entitic vol] 88.4 fL Normal 81-99 [facility] Comment on above: Performed By: #### L 500.4050, L100.0500 ####[facility] [address] [place], [address] Platelet mean volume (Bld) [Entitic vol] 11.2 fL Normal 6.2-12.0 [facility] Comment on above: Performed By: #### L 500.4050, L100.0500 ####[facility] [address] [place], [address] Platelets (Bld) [#/Vol] 172 10*3/uL Normal 150-450 [facility] Comment on above: Performed By: #### L 500.4050, L100.0500 ####[facility] [address] [place], [address] RBC (Bld) [#/Vol] 3.95 10*6/uL Low 4.2-5.4 [facility] Comment on above: Performed By: #### L 500.4050, L100.0500 ####[facility] [address] [place], [address] RDW SD 55.4 fl High 35.1-43.9 [facility] Comment on above: Performed By: #### L 500.4050, L100.0500 ####[facility] [address] [place], [address] WBC (Bld) [#/Vol] 5.7 10*3/uL Normal 4.4-11.0 [facility] Comment on above: Performed By: #### L 500.4050, L100.0500 ####[facility] [address] [place], [address] Carbon dioxide, total [Moles /volume] in Central venous bloodOrdered By: Millie Massey on 10-30-2024 CO2 [Moles/Vol] 30.0 mmol/L 21.0-32.0 [facility] Chloride assayOrdered By: Carter Massey on 10-30-2024 Chloride [Moles/Vol] 93 mmol/L Low 98-108 [facility] Comprehensive Metabolic Prof ilon 10-30-2024 Albumin [Mass/Vol] 2.9 g/dL Low 3.4-4.8 [facility] Comment on above: Performed By: #### L 500.4050, L100.0500 ####[facility] [address] [place], [address] Albumin/Globulin [Mass ratio] 0.8 {ratio} Low 0.9-2.4 [facility] Comment on above: Performed By: #### L 500.4050, L100.0500 ####[facility] [address] [place], [address] ALK PHOS 172 U/L High 35-104 [facility] Comment on above: Performed By: #### L 500.4050, L100.0500 ####[facility] [address] [place], [address] ALT [Catalytic activity/Vol] 173 U/L High <=34 [facility] Comment on above: Performed By: #### L 500.4050, L100.0500 ####[facility] [address] [place], [address] AST [Catalytic activity/Vol] 196 U/L High <=31 [facility] Comment on above: Performed By: #### L 500.4050, L100.0500 ####[facility] [address] [place], [address] Bilirubin [Mass/Vol] 0.26 mg/dL Normal 0.00-1.30 [facility] Comment on above: Performed By: #### L 500.4050, L100.0500 ####[facility] [address] [place], [address] BUN/CRE 44.3 RATIO High 10-20 [facility] Comment on above: Performed By: #### L 500.4050, L100.0500 ####[facility] [address] [place], [address] Calcium [Mass/Vol] 10.9 mg/dL Normal 7.6-11.0 [facility] Comment on above: Performed By: #### L 500.4050, L100.0500 ####[facility] [address] [place], [address] Chloride [Moles/Vol] 93 mmol/L Low 98-108 [facility] Comment on above: Performed By: #### L 500.4050, L100.0500 ####[facility] [address] [place], [address] CO2 [Moles/Vol] 30.0 mmol/L Normal 21.0-32.0 [facility] Comment on above: Performed By: #### L 500.4050, L100.0500 ####[facility] [address] [place], [address] Creatinine [Mass/Vol] 1.57 mg/dL High 0.70-1.20 [facility] Comment on above: Performed By: #### L 500.4050, L100.0500 ####[facility] [address] [place], [address] GAP 11 Normal 5-15 [facility] Comment on above: Performed By: #### L 500.4050, L100.0500 ####[facility] [address] [place], [address] GFR/1.73 sq M.predicted among non-blacks MDRD (S/P/Bld) [Vol rate/Area] 37 mL/min/{1.73_m2} Low >60 [facility] Comment on above: Result Comment: mL/m in/1.73m2 CKD-EPI Creatinine Equation (2020) Performed By: #### L 500.4050, L100.0500 ####[facility] [address] [place], [address] Globulin (S) [Mass/Vol] 3.8 g/dL Normal 2.2-4.2 [facility] Comment on above: Performed By: #### L 500.4050, L100.0500 ####[facility] [address] [place], [address] Glucose [Mass/Vol] 109 mg/dL High 70-99 [facility] Comment on above: Performed By: #### L 500.4050, L100.0500 ####[facility] [address] [place], [address] Potassium [Moles/Vol] 3.3 mmol/L Normal 3.3-5.1 [facility] Comment on above: Performed By: #### L 500.4050, L100.0500 ####[facility] [address] [place], [address] Sodium [Moles/Vol] 133 mmol/L Normal 133-145 [facility] Comment on above: Performed By: #### L 500.4050, L100.0500 ####[facility] [address] [place], [address] T PROT 6.7 g/dL Normal 5.9-8.4 [facility] Comment on above: Performed By: #### L 500.4050, L100.0500 ####[facility] [address] [place], [address] Urea nitrogen [Mass/Vol] 70 mg/dL High 4-19 [facility] Comment on above: Performed By: #### L 500.4050, L100.0500 ####[facility] [address] [place], [address] Erythrocyte distribution wid th ratioOrdered By: Millie Massey on 10-30-2024 Erythrocyte distribution width (RBC) [Ratio] 17.0 % High 11.6-14.6 [facility] Erythrocyte distribution wid th standard deviationOrdered By: Millie Massey on 10-30-2024 Erythrocyte distribution width (RBC) [Ratio] 55.4 fl High 35.1-43.9 [facility] Glomerular filtration rate ( GFR) estimation/1.73 sq m using serum, plasma, or whole bOrdered By: Millie Massey on 10-30-2024 GFR/1.73 sq M.predicted among non-blacks MDRD (S/P/Bld) [Vol rate/Area] 37 mL/min/{1.73_m2} Low >60 [facility] Hematocrit Auto (Bld) [Volum e fraction]Ordered By: Millie Massey on 10-30-2024 Hematocrit (Bld) [Volume fraction] 34.9 % Low 37-47 [facility] Hemoglobin measurementOrdere d By: Millie Massey on 10-30-2024 Hemoglobin (Bld) [Mass/Vol] 10.6 g/dL Low 12.0-15.0 [facility] MCV (mean corpuscular volume ) determinationOrdered By: Millie Massey on 10-30-2024 MCV (RBC) [Entitic vol] 88.4 fL 81-99 [facility] Mean corpuscular hemoglobin (MCH) determinationOrdered By: Millie Massey on 10-30-2024 MCH (RBC) [Entitic mass] 26.8 pg Low 27.0-32.0 [facility] No Panel InformationOrdered By: Millie Massey on 10-30-2024 196 U/L High <32 [facility] Platelet countOrdered By: Carter Massey on 10-30-2024 Platelets (Bld) [#/Vol] 172 10*3/uL 150-450 [facility] Potassium measurement (mass/ volume)Ordered By: Millie Massey on 10-30-2024 Potassium (Unsp spec) [Mass/Vol] 3.3 mmol/L 3.3-5.1 [facility] RBC Auto (Bld) [#/Vol]Ordere d By: Millie Massey on 10-30-2024 RBC (Bld) [#/Vol] 3.95 10*6/uL Low 4.2-5.4 [facility] Serum creatinine measurement (mass/volume)Ordered By: Millie Massey on 10-30-2024 Creatinine [Mass/Vol] 1.57 mg/dL High 0.70-1.20 [facility] Serum globulin measurementOr dered By: Millie Massey on 10-30-2024 Globulin (S) [Mass/Vol] 3.8 g/dL 2.2-4.2 [facility] Serum glucose measurement (m ass/volume)Ordered By: Millie Massey on 10-30-2024 Glucose [Mass/Vol] 109 mg/dL High 70-99 [facility] Serum or plasma alanine camargo otransferase (ALT) measurementOrdered By: Millie Massey on 10-30-2024 ALT [Catalytic activity/Vol] 173 U/L High <35 [facility] Serum or plasma albumin megan urement (mass/volume)Ordered By: Millie Massey on 10-30-2024 Albumin [Mass/Vol] 2.9 g/dL Low 3.4-4.8 [facility] Serum or plasma albumin/glob ulin mass ratioOrdered By: Millie Massey on 10-30-2024 Albumin/Globulin [Mass ratio] 0.8 {ratio} Low 0.9-2.4 [facility] Serum or plasma alkaline susan sphatase measurementOrdered By: Millie Massey on 10-30-2024 ALP [Catalytic activity/Vol] 172 U/L High 35-104 [facility] Serum or plasma calcium megan urement (mass/volume)Ordered By: Millie Massey on 10-30-2024 Calcium [Mass/Vol] 10.9 mg/dL 7.6-11.0 [facility] Serum or plasma urea nitroge n measurement (mass/volume)Ordered By: Millie Massey on 10-30-2024 Urea nitrogen [Mass/Vol] 70 mg/dL High 4-19 [facility] Sodium levelOrdered By: Silvana Massey on 10-30-2024 Sodium [Moles/Vol] 133 mmol/L 133-145 [facility] Total proteinOrdered By: Lesli Massey on 10-30-2024 Protein [Mass/Vol] 6.7 g/dL 5.9-8.4 [facility] White blood cell (WBC) count Ordered By: Millie Massey on 10-30-2024 WBC (Bld) [#/Vol] 5.7 10*3/uL 4.4-11.0 [facility] Anion gap in Serum or Plasma Ordered By: Millie Massey on 09-23-2024 Anion gap [Moles/Vol] 13 mmol/L 5-15 [facility] BUN/creatinine ratioOrdered By: Millie Massey on 09-23-2024 Urea nitrogen/Creatinine [Mass ratio] 39.5 mg/mg High 10-20 [facility] Basic Metabolic Profile (BMP )on 09-23-2024 BUN/CRE 39.5 RATIO High - [facility] Comment on above: Order Comment: 206. Performed By: #### L 500.2500 ####[facility] [address] [place], [address] Calcium [Mass/Vol] 9.4 mg/dL Normal 7.6-11.0 [facility] Comment on above: Order Comment: 206.1 Performed By: #### L 500.2500 ####[facility] [address] [place], [address] Chloride [Moles/Vol] 94 mmol/L Low 98-108 [facility] Comment on above: Order Comment: . Performed By: #### L 500.2500 ####[facility] [address] [place], [address] CO2 [Moles/Vol] 23.4 mmol/L Normal 21.0-32.0 [facility] Comment on above: Order Comment: . Performed By: #### L 500.2500 ####[facility] [address] [place], [address] Creatinine [Mass/Vol] 1.42 mg/dL High 0.70-1.20 [facility] Comment on above: Order Comment: . Performed By: #### L 500.2500 ####[facility] [address] [place], [address] GAP 13 Normal 5-15 [facility] Comment on above: Order Comment: . Performed By: #### L 500.2500 ####[facility] [address] [place], [address] GFR/1.73 sq M.predicted among non-blacks MDRD (S/P/Bld) [Vol rate/Area] 42 mL/min/{1.73_m2} Low >60 [facility] Comment on above: Order Comment: . Result Comment: mL/m in/1.73m2 CKD-EPI Creatinine Equation (2020) Performed By: #### L 500.2500 ####[facility] [address] [place], [address] Glucose [Mass/Vol] 98 mg/dL Normal 70-99 [facility] Comment on above: Order Comment: . Performed By: #### L 500.2500 ####[facility] [address] [place], [address] Potassium [Moles/Vol] 5.1 mmol/L Normal 3.3-5.1 [facility] Comment on above: Order Comment: . Result Comment: Hemo lysis present, Results??could be affected.?? Performed By: #### L 500.2500 ####[facility] [address] [place], [address] Sodium [Moles/Vol] 131 mmol/L Low 133-145 [facility] Comment on above: Order Comment: 206.1 Performed By: #### L 500.2500 ####[facility] [address] [place], [place], [address] Urea nitrogen [Mass/Vol] 56 mg/dL High 4-19 [facility] Comment on above: Order Comment: 206.1 Performed By: #### L 500.2500 ####[facility] [address] [place], [place], [address] Carbon dioxide, total [Moles /volume] in Central venous bloodOrdered By: Millie Massey on 09-23-2024 CO2 [Moles/Vol] 23.4 mmol/L 21.0-32.0 [facility] Chloride assayOrdered By: Carter Massey on 09-23-2024 Chloride [Moles/Vol] 94 mmol/L Low 98-108 [facility] Glomerular filtration rate ( GFR) estimation/1.73 sq m using serum, plasma, or whole bOrdered By: Millie Massey on 09-23-2024 GFR/1.73 sq M.predicted among non-blacks MDRD (S/P/Bld) [Vol rate/Area] 42 mL/min/{1.73_m2} Low >60 [facility] Potassium measurement (mass/ volume)Ordered By: Millie Massey on 09-23-2024 Potassium (Unsp spec) [Mass/Vol] 5.1 mmol/L 3.3-5.1 [facility] Serum creatinine measurement (mass/volume)Ordered By: Millie Massey on 09-23-2024 Creatinine [Mass/Vol] 1.42 mg/dL High 0.70-1.20 [facility] Serum glucose measurement (m ass/volume)Ordered By: Millie Massey on 09-23-2024 Glucose [Mass/Vol] 98 mg/dL 70-99 [facility] Serum or plasma calcium megan urement (mass/volume)Ordered By: Millie Massey on 09-23-2024 Calcium [Mass/Vol] 9.4 mg/dL 7.6-11.0 [facility] Serum or plasma urea nitroge n measurement (mass/volume)Ordered By: Millei Massey on 09-23-2024 Urea nitrogen [Mass/Vol] 56 mg/dL High 4-19 [facility] Sodium levelOrdered By: Silvana Massey on 09-23-2024 Sodium [Moles/Vol] 131 mmol/L Low 133-145 [facility] Anion gap in Serum or Plasma Ordered By: Millie Massey on 09-18-2024 Anion gap [Moles/Vol] 11 mmol/L 5-15 [facility] BUN/creatinine ratioOrdered By: Millie Massey on 09-18-2024 Urea nitrogen/Creatinine [Mass ratio] 39.3 mg/mg High 10-20 [facility] Bilirubin, totalOrdered By: Millie Massey on 09-18-2024 Bilirubin [Mass/Vol] 0.31 mg/dL 0.00-1.30 [facility] Carbon dioxide, total [Moles /volume] in Central venous bloodOrdered By: Millie Massey on 09-18-2024 CO2 [Moles/Vol] 28.1 mmol/L 21.0-32.0 [facility] Chloride assayOrdered By: Carter Massey on 09-18-2024 Chloride [Moles/Vol] 94 mmol/L Low 98-108 [facility] Comprehensive Metabolic Prof ilon 09-18-2024 Albumin [Mass/Vol] 2.9 g/dL Low 3.4-4.8 [facility] Comment on above: Order Comment: 200 Performed By: #### L 500.4050 ####[facility] [address] [place], [place], [address] Albumin/Globulin [Mass ratio] 0.7 {ratio} Low 0.9-2.4 [facility] Comment on above: Order Comment: 200 Performed By: #### L 500.4050 ####[facility] [address] [place], [place], [address] ALK PHOS 117 U/L High 35-104 [facility] Comment on above: Order Comment: 200 Performed By: #### L 500.4050 ####[facility] [address] [place], [address] ALT [Catalytic activity/Vol] 63 U/L High <=34 [facility] Comment on above: Order Comment: 200 Performed By: #### L 500.4050 ####[facility] [address] [place], [address] AST [Catalytic activity/Vol] 76 U/L High <=31 [facility] Comment on above: Order Comment: 200 Performed By: #### L 500.4050 ####[facility] [address] [place], [address] Bilirubin [Mass/Vol] 0.31 mg/dL Normal 0.00-1.30 [facility] Comment on above: Order Comment: 200 Performed By: #### L 500.4050 ####[facility] [facility] [address] [place], [address] BUN/CRE 39.3 RATIO High 10-20 [facility] Comment on above: Order Comment: 200 Performed By: #### L 500.4050 ####[facility] [address] [place], [address] Calcium [Mass/Vol] 9.4 mg/dL Normal 7.6-11.0 [facility] Comment on above: Order Comment: 200 Performed By: #### L 500.4050 ####[facility] [address] [place], [address] Chloride [Moles/Vol] 94 mmol/L Low 98-108 [facility] Comment on above: Order Comment: 200 Performed By: #### L 500.4050 ####[facility] [address] [place], [address] CO2 [Moles/Vol] 28.1 mmol/L Normal 21.0-32.0 [facility] Comment on above: Order Comment: 200 Performed By: #### L 500.4050 ####[facility] [address] [place], [address] Creatinine [Mass/Vol] 1.24 mg/dL High 0.70-1.20 [facility] Comment on above: Order Comment: 200 Performed By: #### L 500.4050 ####[facility] [address] [place], [address] GAP 11 Normal 5-15 [facility] Comment on above: Order Comment: 200 Performed By: #### L 500.4050 ####[facility] [address] [place], [address] GFR/1.73 sq M.predicted among non-blacks MDRD (S/P/Bld) [Vol rate/Area] 49 mL/min/{1.73_m2} Low >60 [facility] Comment on above: Order Comment: 200 Result Comment: mL/m in/1.73m2 CKD-EPI Creatinine Equation (2020) Performed By: #### L 500.4050 ####[facility] [address] [place], [address] Globulin (S) [Mass/Vol] 4.4 g/dL High 2.2-4.2 [facility] Comment on above: Order Comment: 200 Performed By: #### L 500.4050 ####[facility] [address] [place], [address] Glucose [Mass/Vol] 167 mg/dL High 70-99 [facility] Comment on above: Order Comment: 200 Performed By: #### L 500.4050 ####[facility] [address] [place], [address] Potassium [Moles/Vol] 5.1 mmol/L Normal 3.3-5.1 [facility] Comment on above: Order Comment: 200 Performed By: #### L 500.4050 ####[facility] [address] [place], [place], [address] Sodium [Moles/Vol] 133 mmol/L Normal 133-145 [facility] Comment on above: Order Comment: 200 Performed By: #### L 500.4050 ####[facility] [address] [place], [place], [id number] T PROT 7.3 g/dL Normal 5.9-8.4 [facility] Comment on above: Order Comment: 200 Performed By: #### L 500.4050 ####[facility] [address] [place], [place], [address] Urea nitrogen [Mass/Vol] 49 mg/dL High 4-19 [facility] Comment on above: Order Comment: 200 Performed By: #### L 500.4050 ####[facility] [address] [place], [place], [address] Glomerular filtration rate ( GFR) estimation/1.73 sq m using serum, plasma, or whole bOrdered By: Millie Massey on 09-18-2024 GFR/1.73 sq M.predicted among non-blacks MDRD (S/P/Bld) [Vol rate/Area] 49 mL/min/{1.73_m2} Low >60 [facility] No Panel InformationOrdered By: Millie Massey on 09-18-2024 76 U/L High <32 [facility] Potassium measurement (mass/ volume)Ordered By: Millie Massey on 09-18-2024 Potassium (Unsp spec) [Mass/Vol] 5.1 mmol/L 3.3-5.1 [facility] Serum creatinine measurement (mass/volume)Ordered By: Millie Massey on 09-18-2024 Creatinine [Mass/Vol] 1.24 mg/dL High 0.70-1.20 [facility] Serum globulin measurementOr dered By: Millie Massey on 09-18-2024 Globulin (S) [Mass/Vol] 4.4 g/dL High 2.2-4.2 [facility] Serum glucose measurement (m ass/volume)Ordered By: Millie Massey on 09-18-2024 Glucose [Mass/Vol] 167 mg/dL High 70-99 [facility] Serum or plasma alanine camargo otransferase (ALT) measurementOrdered By: Millie Massey on 09-18-2024 ALT [Catalytic activity/Vol] 63 U/L High <35 [facility] Serum or plasma albumin megan urement (mass/volume)Ordered By: Millie Massey on 09-18-2024 Albumin [Mass/Vol] 2.9 g/dL Low 3.4-4.8 [facility] Serum or plasma albumin/glob ulin mass ratioOrdered By: Millie Massey on 09-18-2024 Albumin/Globulin [Mass ratio] 0.7 {ratio} Low 0.9-2.4 [facility] Serum or plasma alkaline susan sphatase measurementOrdered By: Millie Massey on 09-18-2024 ALP [Catalytic activity/Vol] 117 U/L High 35-104 [facility] Serum or plasma calcium megan urement (mass/volume)Ordered By: Millie Massey on 09-18-2024 Calcium [Mass/Vol] 9.4 mg/dL 7.6-11.0 [facility] Serum or plasma urea nitroge n measurement (mass/volume)Ordered By: Millie Massey on 09-18-2024 Urea nitrogen [Mass/Vol] 49 mg/dL High 4-19 [facility] Sodium levelOrdered By: Silvana Massey on 09-18-2024 Sodium [Moles/Vol] 133 mmol/L 133-145 [facility] Total proteinOrdered By: Lesli Massey on 09-18-2024 Protein [Mass/Vol] 7.3 g/dL 5.9-8.4 [facility] Anion gap in Serum or Plasma Ordered By: Millie Massey on 09-16-2024 Anion gap [Moles/Vol] 12 mmol/L 5-15 [facility] BUN/creatinine ratioOrdered By: Millie Massey on 09-16-2024 Urea nitrogen/Creatinine [Mass ratio] 36.5 mg/mg High 10-20 [facility] Bilirubin, totalOrdered By: Millie Massey on 09-16-2024 Bilirubin [Mass/Vol] 0.42 mg/dL 0.00-1.30 [facility] CBC-Complete Blood Cnt No Di ffon 09-16-2024 Erythrocyte distribution width (RBC) [Ratio] 19.6 % High 11.6-14.6 [facility] Comment on above: Performed By: #### L 100.0500, L500.4050 ####[facility] [address] [place], [address] Hematocrit (Bld) [Volume fraction] 29.2 % Low 37-47 [facility] Comment on above: Performed By: #### L 100.0500, L500.4050 ####[facility] [address] [place], [address] Hemoglobin (Bld) [Mass/Vol] 8.4 g/dL Low 12.0-15.0 [facility] Comment on above: Performed By: #### L 100.0500, L500.4050 ####[facility] [address] [place], [address] MCH (RBC) [Entitic mass] 26.8 pg Low 27.0-32.0 [facility] Comment on above: Performed By: #### L 100.0500, L500.4050 ####[facility] [address] [place], [address] MCHC (RBC) [Mass/Vol] 28.8 g/dL Low 32-36 [facility] Comment on above: Performed By: #### L 100.0500, L500.4050 ####[facility] [address] [place], [address] MCV (RBC) [Entitic vol] 93.3 fL Normal 81-99 [facility] Comment on above: Performed By: #### L 100.0500, L500.4050 ####[facility] [address] [place], [address] Platelet mean volume (Bld) [Entitic vol] 10.4 fL Normal 6.2-12.0 [facility] Comment on above: Performed By: #### L 100.0500, L500.4050 ####[facility] [address] [place], [address] Platelets (Bld) [#/Vol] 180 10*3/uL Normal 150-450 [facility] Comment on above: Performed By: #### L 100.0500, L500.4050 ####[facility] [address] [place], [address] RBC (Bld) [#/Vol] 3.13 10*6/uL Low 4.2-5.4 [facility] Comment on above: Performed By: #### L 100.0500, L500.4050 ####[facility] [address] [place], [address] RDW SD 65.9 fl High 35.1-43.9 [facility] Comment on above: Performed By: #### L 100.0500, L500.4050 ####[facility] [address] [place], [address] WBC (Bld) [#/Vol] 7.5 10*3/uL Normal 4.4-11.0 [facility] Comment on above: Performed By: #### L 100.0500, L500.4050 ####[facility] [address] [place], [address] Carbon dioxide, total [Moles /volume] in Central venous bloodOrdered By: Millie Massey on 09-16-2024 CO2 [Moles/Vol] 24.4 mmol/L 21.0-32.0 [facility] Chloride assayOrdered By: Carter Massey on 09-16-2024 Chloride [Moles/Vol] 94 mmol/L Low 98-108 [facility] Comprehensive Metabolic Prof ilon 09-16-2024 Albumin [Mass/Vol] 2.8 g/dL Low 3.4-4.8 [facility] Comment on above: Performed By: #### L 100.0500, L500.4050 ####[facility] [address] [place], [address] Albumin/Globulin [Mass ratio] 0.6 {ratio} Low 0.9-2.4 [facility] Comment on above: Performed By: #### L 100.0500, L500.4050 ####[facility] [address] [place], [address] ALK PHOS 126 U/L High 35-104 [facility] Comment on above: Performed By: #### L 100.0500, L500.4050 ####[facility] [address] [place], [address] ALT [Catalytic activity/Vol] 93 U/L High <=34 [facility] Comment on above: Performed By: #### L 100.0500, L500.4050 ####[facility] [address] [place], [address] AST [Catalytic activity/Vol] 130 U/L High <=31 [facility] Comment on above: Result Comment: Hemo lysis present, Results??could be affected.?? Performed By: #### L 100.0500, L500.4050 ####[facility] [address] [place], [address] Bilirubin [Mass/Vol] 0.42 mg/dL Normal 0.00-1.30 [facility] Comment on above: Performed By: #### L 100.0500, L500.4050 ####[facility] [address] [place], [address] BUN/CRE 36.5 RATIO High 10-20 [facility] Comment on above: Performed By: #### L 100.0500, L500.4050 ####[facility] [address] [place], [address] Calcium [Mass/Vol] 9.8 mg/dL Normal 7.6-11.0 [facility] Comment on above: Performed By: #### L 100.0500, L500.4050 ####[facility] [address] [place], [address] Chloride [Moles/Vol] 94 mmol/L Low 98-108 [facility] Comment on above: Performed By: #### L 100.0500, L500.4050 ####[facility] [address] [place], [address] CO2 [Moles/Vol] 24.4 mmol/L Normal 21.0-32.0 [facility] Comment on above: Performed By: #### L 100.0500, L500.4050 ####[facility] [address] [place], [address] Creatinine [Mass/Vol] 1.46 mg/dL High 0.70-1.20 [facility] Comment on above: Performed By: #### L 100.0500, L500.4050 ####[facility] [address] [place], [address] GAP 12 Normal 5-15 [facility] Comment on above: Performed By: #### L 100.0500, L500.4050 ####[facility] [address] [place], [address] GFR/1.73 sq M.predicted among non-blacks MDRD (S/P/Bld) [Vol rate/Area] 40 mL/min/{1.73_m2} Low >60 [facility] Comment on above: Result Comment: mL/m in/1.73m2 CKD-EPI Creatinine Equation (2020) Performed By: #### L 100.0500, L500.4050 ####[facility] [address] [place], [address] Globulin (S) [Mass/Vol] 5.0 g/dL High 2.2-4.2 [facility] Comment on above: Performed By: #### L 100.0500, L500.4050 ####[facility] [address] [place], [address] Glucose [Mass/Vol] 85 mg/dL Normal 70-99 [facility] Comment on above: Performed By: #### L 100.0500, L500.4050 ####[facility] [address] [place], [address] Potassium [Moles/Vol] 4.8 mmol/L Normal 3.3-5.1 [facility] Comment on above: Result Comment: Hemo lysis present, Results??could be affected.?? Performed By: #### L 100.0500, L500.4050 ####[facility] [address] [place], [address] Sodium [Moles/Vol] 130 mmol/L Low 133-145 [facility] Comment on above: Performed By: #### L 100.0500, L500.4050 ####[facility] [address] [place], [address] T PROT 7.7 g/dL Normal 5.9-8.4 [facility] Comment on above: Performed By: #### L 100.0500, L500.4050 ####[facility] [address] [place], [address] Urea nitrogen [Mass/Vol] 53 mg/dL High 4-19 [facility] Comment on above: Performed By: #### L 100.0500, L500.4050 ####[facility] [address] [place], [address] Erythrocyte distribution wid th ratioOrdered By: Millie Massey on 09-16-2024 Erythrocyte distribution width (RBC) [Ratio] 19.6 % High 11.6-14.6 [facility] Erythrocyte distribution wid th standard deviationOrdered By: Millie Massey on 09-16-2024 Erythrocyte distribution width (RBC) [Ratio] 65.9 fl High 35.1-43.9 [facility] Glomerular filtration rate ( GFR) estimation/1.73 sq m using serum, plasma, or whole bOrdered By: Millie Massey on 09-16-2024 GFR/1.73 sq M.predicted among non-blacks MDRD (S/P/Bld) [Vol rate/Area] 40 mL/min/{1.73_m2} Low >60 [facility] Hematocrit Auto (Bld) [Volum e fraction]Ordered By: Millie Massey on 09-16-2024 Hematocrit (Bld) [Volume fraction] 29.2 % Low 37-47 [facility] Hemoglobin measurementOrdere d By: Millie Massey on 09-16-2024 Hemoglobin (Bld) [Mass/Vol] 8.4 g/dL Low 12.0-15.0 [facility] MCV (mean corpuscular volume ) determinationOrdered By: Millie Massey on 09-16-2024 MCV (RBC) [Entitic vol] 93.3 fL 81-99 [facility] Mean corpuscular hemoglobin (MCH) determinationOrdered By: Millie Massey on 09-16-2024 MCH (RBC) [Entitic mass] 26.8 pg Low 27.0-32.0 [facility] No Panel InformationOrdered By: Millie Massey on 09-16-2024 130 U/L High <32 [facility] Platelet countOrdered By: Carter Massey on 09-16-2024 Platelets (Bld) [#/Vol] 180 10*3/uL 150-450 [facility] Potassium measurement (mass/ volume)Ordered By: Millie Massey on 09-16-2024 Potassium (Unsp spec) [Mass/Vol] 4.8 mmol/L 3.3-5.1 [facility] RBC Auto (Bld) [#/Vol]Ordere d By: Millie Massey on 09-16-2024 RBC (Bld) [#/Vol] 3.13 10*6/uL Low 4.2-5.4 [facility] Serum creatinine measurement (mass/volume)Ordered By: Millie Massey on 09-16-2024 Creatinine [Mass/Vol] 1.46 mg/dL High 0.70-1.20 [facility] Serum globulin measurementOr dered By: Millie Massey on 09-16-2024 Globulin (S) [Mass/Vol] 5.0 g/dL High 2.2-4.2 [facility] Serum glucose measurement (m ass/volume)Ordered By: Millie Massey on 09-16-2024 Glucose [Mass/Vol] 85 mg/dL 70-99 [facility] Serum or plasma alanine camargo otransferase (ALT) measurementOrdered By: Millie Massey on 09-16-2024 ALT [Catalytic activity/Vol] 93 U/L High <35 [facility] Serum or plasma albumin megan urement (mass/volume)Ordered By: Millie Massey on 09-16-2024 Albumin [Mass/Vol] 2.8 g/dL Low 3.4-4.8 [facility] Serum or plasma albumin/glob ulin mass ratioOrdered By: Millie Massey on 09-16-2024 Albumin/Globulin [Mass ratio] 0.6 {ratio} Low 0.9-2.4 [facility] Serum or plasma alkaline susan sphatase measurementOrdered By: Millie Massey on 09-16-2024 ALP [Catalytic activity/Vol] 126 U/L High 35-104 [facility] Serum or plasma calcium megan urement (mass/volume)Ordered By: Millie Massey on 09-16-2024 Calcium [Mass/Vol] 9.8 mg/dL 7.6-11.0 [facility] Serum or plasma urea nitroge n measurement (mass/volume)Ordered By: Millie Massey on 09-16-2024 Urea nitrogen [Mass/Vol] 53 mg/dL High 09-14 [facility] Sodium levelOrdered By: Silvana Massey on 09-16-2024 Sodium [Moles/Vol] 130 mmol/L Low 133-145 [facility] Total proteinOrdered By: Lesli Massey on 09-16-2024 Protein [Mass/Vol] 7.7 g/dL 5.9-8.4 [facility] White blood cell (WBC) count Ordered By: Millie Massey on 09-16-2024 WBC (Bld) [#/Vol] 7.5 10*3/uL 4.4-11.0 [facility] 12 Lead EKGon 09-15-2024 12 Lead EKG Normal [facility] Absolute lymphocyte countOrd ered By: Constantin Jain on 09-15-2024 Lymphocytes Auto (Unsp spec) [#/Vol] 0.64 10*3/uL Low 0.83-4.51 [facility] Absolute neutrophil countOrd ered By: Constantin Jain on 09-15-2024 Absolute neutrophil count 7.8 X10^3/uL High 2.0-7.7 [facility] Anion gap [Moles/Vol]Ordered By: Constantin Jain on 09-15-2024 Anion gap in Serum or Plasma 10 5- [facility] Anion gap in Serum or Plasma Ordered By: Constantin Jain on 09-15-2024 Anion gap [Moles/Vol] 10 mmol/L - [facility] Automated lymphocyte count a s percentage of total leukocytesOrdered By: Constantin Jain on 09-15-2024 Lymphocytes/100 WBC Auto (Unsp spec) 6.9 % Low 19-41 [facility] BUN/creatinine ratioOrdered By: Constantin Jain on 09-15-2024 Urea nitrogen/Creatinine [Mass ratio] 34.6 mg/mg High 03-17 [facility] BUN/creatinine ratio 34.6 RATIO High 03-17 [facility] Basic Metabolic Profile (BMP )on 09-15-2024 BUN/CRE 34.6 RATIO High 03-17 [facility] Comment on above: Performed By: #### L 500.2500, L501.4021, L100.0100 ####[facility] [address] [place], [address] Calcium [Mass/Vol] 9.1 mg/dL Normal 7.6-11.0 [facility] Comment on above: Performed By: #### L 500.2500, L501.4021, L100.0100 ####[facility] [address] [place], [address] Chloride [Moles/Vol] 96 mmol/L Low 98-108 [facility] Comment on above: Performed By: #### L 500.2500, L501.4021, L100.0100 ####[facility] [address] [place], [address] CO2 [Moles/Vol] 27.3 mmol/L Normal 21.0-32.0 [facility] Comment on above: Performed By: #### L 500.2500, L501.4021, L100.0100 ####[facility] [address] [place], [address] Creatinine [Mass/Vol] 1.14 mg/dL Normal 0.70-1.20 [facility] Comment on above: Performed By: #### L 500.2500, L501.4021, L100.0100 ####[facility] [address] [place], [address] ECRCL 44.59 ml/min Low 50-250 [facility] Comment on above: Performed By: #### L 500.2500, L501.4021, L100.0100 ####[facility] [address] [place], [address] GAP 10 Normal 5-15 [facility] Comment on above: Performed By: #### L 500.2500, L501.4021, L100.0100 ####[facility] [address] [place], [address] GFR/1.73 sq M.predicted among non-blacks MDRD (S/P/Bld) [Vol rate/Area] 54 mL/min/{1.73_m2} Low >60 [facility] Comment on above: Result Comment: mL/m in/1.73m2 CKD-EPI Creatinine Equation (2020) Performed By: #### L 500.2500, L501.4021, L100.0100 ####[facility] [address] [place], [address] Glucose [Mass/Vol] 103 mg/dL High 70-99 [facility] Comment on above: Performed By: #### L 500.2500, L501.4021, L100.0100 ####[facility] [address] [place], [address] Potassium [Moles/Vol] 4.3 mmol/L Normal 3.3-5.1 [facility] Comment on above: Result Comment: Hemo lysis present, Results??could be affected.?? Performed By: #### L 500.2500, L501.4021, L100.0100 ####[facility] [address] [place], [address] Sodium [Moles/Vol] 133 mmol/L Normal 133-145 [facility] Comment on above: Performed By: #### L 500.2500, L501.4021, L100.0100 ####[facility] [address] [place], [address] Urea nitrogen [Mass/Vol] 40 mg/dL High 4-19 [facility] Comment on above: Performed By: #### L 500.2500, L501.4021, L100.0100 ####[facility] [address] [place], [address] Basophil percentageOrdered B y: Constantin Jain on 04-20-2025 Basophils/100 WBC (Bld) 0.3 % 0-1 [facility] Basophil percentage 0.3 % 0-1 [facility] CBC W/Diff, Automatedon 04-2 0-2025 Absolute Lymph 0.64 X10 3/uL Low 0.83-4.51 [facility] Comment on above: Performed By: #### L 500.2500, L501.4021, L100.0100 ####[facility] [address] [place], [address] Absolute Neut 7.8 X10 3/uL High 2.0-7.7 [facility] Comment on above: Performed By: #### L 500.2500, L501.4021, L100.0100 ####[facility] [address] [place], [address] Basophils/100 WBC (Bld) 0.3 % Normal 0-1 [facility] Comment on above: Performed By: #### L 500.2500, L501.4021, L100.0100 ####[facility] [address] [place], [address] Eosinophils/100 WBC (Bld) 1.5 % Normal 0-5 [facility] Comment on above: Performed By: #### L 500.2500, L501.4021, L100.0100 ####[facility] [address] [place], [address] Erythrocyte distribution width (RBC) [Ratio] 19.0 % High 11.6-14.6 [facility] Comment on above: Performed By: #### L 500.2500, L501.4021, L100.0100 ####[facility] [address] [place], [address] Hematocrit (Bld) [Volume fraction] 27.5 % Low 37-47 [facility] Comment on above: Performed By: #### L 500.2500, L501.4021, L100.0100 ####[facility] [address] [place], [address] Hemoglobin (Bld) [Mass/Vol] 8.3 g/dL Low 12.0-15.0 [facility] Comment on above: Performed By: #### L 500.2500, L501.4021, L100.0100 ####[facility] [address] [place], [address] IG% 1.100 High 0.0-0.9 [facility] Comment on above: Result Comment: IG% - Immature Granulocytes (promyelocytes, myelocytes andmetamyelocytes) > 1% indicates that a LEFT SHIFT is Present. Performed By: #### L 500.2500, L501.4021, L100.0100 ####[facility] [address] [place], [address] Lymphocytes/100 WBC (Bld) 6.9 % Low 19-41 [facility] [facility] Comment on above: Performed By: #### L 500.2500, L501.4021, L100.0100 ####[facility] [address] [place], [address] MCH (RBC) [Entitic mass] 27.5 pg Normal 27.0-32.0 [facility] Comment on above: Performed By: #### L 500.2500, L501.4021, L100.0100 ####[facility] [address] [place], [address] MCHC (RBC) [Mass/Vol] 30.2 g/dL Low 32-36 [facility] Comment on above: Performed By: #### L 500.2500, L501.4021, L100.0100 ####[facility] [address] [place], [address] MCV (RBC) [Entitic vol] 91.1 fL Normal 81-99 [facility] Comment on above: Performed By: #### L 500.2500, L501.4021, L100.0100 ####[facility] [address] [place], [address] Monocytes/100 WBC (Bld) 6.1 % Normal 0-10 [facility] Comment on above: Performed By: #### L 500.2500, L501.4021, L100.0100 ####[facility] [address] [place], [address] Neutrophils/100 WBC (Bld) 84.1 % High 47-70 [facility] Comment on above: Performed By: #### L 500.2500, L501.4021, L100.0100 ####[facility] [address] [place], [address] Nucleated RBC (Bld) [#/Vol] 0 10*3/uL Normal 0-5 [facility] Comment on above: Performed By: #### L 500.2500, L501.4021, L100.0100 ####[facility] [address] [place], [address] Platelet mean volume (Bld) [Entitic vol] 10.0 fL Normal 6.2-12.0 [facility] Comment on above: Performed By: #### L 500.2500, L501.4021, L100.0100 ####[facility] [address] [place], [address] Platelets (Bld) [#/Vol] 198 10*3/uL Normal 150-450 [facility] Comment on above: Performed By: #### L 500.2500, L501.4021, L100.0100 ####[facility] [address] [place], [address] RBC (Bld) [#/Vol] 3.02 10*6/uL Low 4.2-5.4 [facility] Comment on above: Performed By: #### L 500.2500, L501.4021, L100.0100 ####[facility] [address] [place], [address] RDW SD 62.7 fl High 35.1-43.9 [facility] Comment on above: Performed By: #### L 500.2500, L501.4021, L100.0100 ####[facility] [address] [place], [address] WBC (Bld) [#/Vol] 9.3 10*3/uL Normal 4.4-11.0 [facility] Comment on above: Performed By: #### L 500.2500, L501.4021, L100.0100 ####[facility] [address] [place], [address] Calcium [Mass/Vol]Ordered By : Constantin Jain on 09-15-2024 Serum or plasma calcium measurement (mass/volume) 9.1 mg/dL 7.6-11.0 [facility] Carbon dioxide, total [Moles /volume] in Central venous bloodOrdered By: Constantin Jain on 09-15-2024 CO2 [Moles/Vol] 27.3 mmol/L 21.0-32.0 [facility] Carbon dioxide, total [Moles/volume] in Central venous blood 27.3 mmol/L 21.0-32.0 [facility] Chest 1 View (Portable)on Chest 1 View (Portable) Normal [facility] Chloride assayOrdered By: Tacos Jain on 09-15-2024 Chloride [Moles/Vol] 96 mmol/L Low 98-108 [facility] Chloride assay 96 mmol/L Low 98-108 [facility] Creatinine [Mass/Vol]Ordered By: Constantin Jain on 09-15-2024 Serum creatinine measurement (mass/volume) 1.14 mg/dL 0.70-1.20 [facility] Emergency Department Summary on 09-15-2024 Emergency Department Summary Normal [facility] Eosinophil percentageOrdered By: Constantin Jain on 09-15-2024 Eosinophils/100 WBC (Bld) 1.5 % 0-5 [facility] Eosinophil percentage 1.5 % 0-5 [facility] Erythrocyte distribution wid th (RBC) [Ratio]Ordered By: Constantin Jain on 09-15-2024 Erythrocyte distribution width ratio 19.0 % High 11.6-14.6 [facility] Erythrocyte distribution width standard deviation 62.7 fl High 35.1-43.9 [facility] Erythrocyte distribution wid th ratioOrdered By: Constantin Jain on 09-15-2024 Erythrocyte distribution width (RBC) [Ratio] 19.0 % High 11.6-14.6 [facility] Erythrocyte distribution wid th standard deviationOrdered By: Constantin Jain on 09-15-2024 Erythrocyte distribution width (RBC) [Ratio] 62.7 fl High 35.1-43.9 [facility] Estimation of creatinine austen aranceOrdered By: Constantin Jain on 09-15-2024 Estimation of creatinine clearance 44.59 ml/min Low 50-250 [facility] GFR/1.73 sq M.predicted víctor g non-blacks MDRD (S/P/Bld) [Vol rate/Area]Ordered By: Constantin Jain on 09-15-2024 Glomerular filtration rate (GFR) estimation/1.73 sq m using serum, plasma, or whole b 54 Low >60 [facility] Glomerular filtration rate ( GFR) estimation/1.73 sq m using serum, plasma, or whole bOrdered By: Constantin Jain on 09-15-2024 GFR/1.73 sq M.predicted among non-blacks MDRD (S/P/Bld) [Vol rate/Area] 54 mL/min/{1.73_m2} Low >60 [facility] Glucose [Mass/Vol]Ordered By : Constantin Jain on 09-15-2024 Serum glucose measurement (mass/volume) 103 mg/dL High 70-99 [facility] Hematocrit Auto (Bld) [Volum e fraction]Ordered By: Constantin Jain on 09-15-2024 Hematocrit (Bld) [Volume fraction] 27.5 % Low 37-47 [facility] Automated blood hematocrit (percentage) 27.5 % Low 37-47 [facility] Hemoglobin measurementOrdere d By: Constantin Jain on 09-15-2024 Hemoglobin (Bld) [Mass/Vol] 8.3 g/dL Low 12.0-15.0 [facility] Hemoglobin measurement 8.3 g/dL Low 12.0-15.0 [facility] Immature granulocytes/100 WB C Auto (Bld)Ordered By: Constantin Jain on 09-15-2024 Immature granulocytes/100 WBC (Bld) 1.100 % High 0.0-0.9 [facility] Automated immature granulocyte percentage 1.100 % High 0.0-0.9 [facility] L499.0042on 09-15-2024 Trop T High Sen 273 ng/L Invalid Interpretation Code <=14 [facility] Comment on above: Result Comment: Crit ical Result(s) Called to Tu MEJIA (ER): Reyr:??Results read back by same. Performed By: #### L 499.0042 ####[facility] [address] [place], [address] L499.0043on 09-15-2024 Trop T High Sen Normal <=14 [facility] Comment on above: Result Comment: Canc elled via OM: Order cancelled - Patient discharged Performed By: #### L 499.0043 ####[facility] [address] [place], [address] L501.4021on 09-15-2024 Trop T High Sen 256 ng/L Invalid Interpretation Code <=14 [facility] Comment on above: Result Comment: Crit ical Result(s) Called at: 0515 by:??WALTER HAVEN TO LEXISCHAFER Results read back by same. Performed By: #### L 500.2500, L501.4021, L100.0100 ####[facility] [address] [place], [address] Lymphocytes Auto (Unsp spec) [#/Vol]Ordered By: Constantin Jain on 09-15-2024 Absolute lymphocyte count 0.64 X10^3/uL Low 0.83-4.51 [facility] Lymphocytes/100 WBC Auto (Un sp spec)Ordered By: Constantin Jain on 09-15-2024 Automated lymphocyte count as percentage of total leukocytes 6.9 % Low 19-41 [facility] MCV (RBC) [Entitic vol]Order ed By: Constantin Jain on 09-15-2024 MCV (mean corpuscular volume) determination 91.1 fL 81-99 [facility] MCV (mean corpuscular volume ) determinationOrdered By: Constantin Jain on 09-15-2024 MCV (RBC) [Entitic vol] 91.1 fL 81-99 [facility] Mean corpuscular hemoglobin (MCH) determinationOrdered By: Constantin Jain on 09-15-2024 MCH (RBC) [Entitic mass] 27.5 pg 27.0-32.0 [facility] Mean corpuscular hemoglobin (MCH) determination 27.5 pg 27.0-32.0 [facility] Mean corpuscular hemoglobin concentration (MCHC) determinationOrdered By: Constantin Jain on 09-15-2024 Mean corpuscular hemoglobin concentration (MCHC) determination 30.2 g/dL Low 32-36 [facility] Mean platelet volume determi nationOrdered By: Constantin Jain on 09-15-2024 Mean platelet volume determination 10.0 fl 6.2-12.0 [facility] Monocyte percentageOrdered B y: Constantin Jain on 09-15-2024 Monocytes/100 WBC (Bld) 6.1 % 0-10 [facility] Monocyte percentage 6.1 % 0-10 [facility] Neutrophil percentageOrdered By: Constantin Jain on 09-15-2024 Neutrophils/100 WBC (Bld) 84.1 % High 47-70 [facility] Neutrophil percentage 84.1 % High 47-70 [facility] Nucleated red blood cell per centageOrdered By: Constantin Jain on 09-15-2024 Nucleated red blood cell percentage 0 % 0-5 [facility] Platelet countOrdered By: Tacos Jain on 09-15-2024 Platelets (Bld) [#/Vol] 198 10*3/uL 150-450 [facility] Platelet count 198 K/mm3 150-450 [facility] Potassium (Unsp spec) [Mass/ Vol]Ordered By: Constantin Jain on 09-15-2024 Potassium measurement (mass/volume) 4.3 mmol/L 3.3-5.1 [facility] Potassium measurement (mass/ volume)Ordered By: Constantin Jain on 09-15-2024 Potassium (Unsp spec) [Mass/Vol] 4.3 mmol/L 3.3-5.1 [facility] RBC Auto (Bld) [#/Vol]Ordere d By: Constantin Jain on 09-15-2024 RBC (Bld) [#/Vol] 3.02 10*6/uL Low 4.2-5.4 [facility] Automated blood erythrocyte count 3.02 M/mm3 Low 4.2-5.4 [facility] Serum creatinine measurement (mass/volume)Ordered By: Constantin Jain on 09-15-2024 Creatinine [Mass/Vol] 1.14 mg/dL 0.70-1.20 [facility] Serum glucose measurement (m ass/volume)Ordered By: Constantin Jain on 09-15-2024 Glucose [Mass/Vol] 103 mg/dL High 70-99 [facility] Serum or plasma calcium megan urement (mass/volume)Ordered By: Constantin Jain on 09-15-2024 Calcium [Mass/Vol] 9.1 mg/dL 7.6-11.0 [facility] Serum or plasma urea nitroge n measurement (mass/volume)Ordered By: Constantin Jain on 09-15-2024 Urea nitrogen [Mass/Vol] 40 mg/dL High 4-19 [facility] Sodium levelOrdered By: Nile Jain on 09-15-2024 Sodium [Moles/Vol] 133 mmol/L 133-145 [facility] Sodium level 133 mmol/L 133-145 [facility] Troponin T.cardiac High sens itivity method [Mass/Vol]Ordered By: Constantin Jain on 09-15-2024 Troponin T.cardiac [Mass/volume] in Serum or Plasma by High sensitivity method 273 ng/L High <14 [facility] Troponin T.cardiac [Mass/volume] in Serum or Plasma by High sensitivity method 256 ng/L High <14 [facility] Troponin T.cardiac [Mass/vol ume] in Serum or Plasma by High sensitivity methodOrdered By: Constantin Jain on 09-15-2024 Troponin T.cardiac High sensitivity method [Mass/Vol] 273 ng/L High <14 [facility] Troponin T.cardiac High sensitivity method [Mass/Vol] 256 ng/L High <14 [facility] Urea nitrogen [Mass/Vol]Orde red By: Constantin Jain on 09-15-2024 Serum or plasma urea nitrogen measurement (mass/volume) 40 mg/dL High 4-19 [facility] White blood cell (WBC) count Ordered By: Constantin Jain on 09-15-2024 WBC (Bld) [#/Vol] 9.3 10*3/uL 4.4-11.0 [facility] White blood cell (WBC) count 9.3 K/mm3 4.4-11.0 [facility] ALP [Catalytic activity/Vol] Ordered By: Millie Massey on 09-09-2024 Serum or plasma alkaline phosphatase measurement 93 U/L 35-104 [facility] ALT [Catalytic activity/Vol] Ordered By: Millie Massey on 09-09-2024 Serum or plasma alanine aminotransferase (ALT) measurement 26 U/L <35 [facility] Albumin [Mass/Vol]Ordered By : Millie Massey on 09-09-2024 Serum or plasma albumin measurement (mass/volume) 2.4 g/dL Low 3.4-4.8 [facility] Albumin/Globulin [Mass ratio ]Ordered By: Millie Massey on 09-09-2024 Serum or plasma albumin/globulin mass ratio 0.6 RATIO Low 0.9-2.4 [facility] Anion gap [Moles/Vol]Ordered By: Millie Massey on 09-09-2024 Anion gap in Serum or Plasma 8 5-15 [facility] Anion gap in Serum or Plasma Ordered By: Millie Massey on 09-09-2024 Anion gap [Moles/Vol] 8 mmol/L 5-15 [facility] BUN/creatinine ratioOrdered By: Millie Massey on 09-09-2024 Urea nitrogen/Creatinine [Mass ratio] 36.3 mg/mg High 10-20 [facility] BUN/creatinine ratio 36.3 RATIO High 10-20 [facility] Bilirubin, totalOrdered By: Millie Massey on 09-09-2024 Bilirubin [Mass/Vol] 0.24 mg/dL 0.00-1.30 [facility] Bilirubin, total 0.24 mg/dL 0.00-1.30 [facility] CBC-Complete Blood Cnt No Geri de la cruz 09-09-2024 Erythrocyte distribution width (RBC) [Ratio] 18.6 % High 11.6-14.6 [facility] Comment on above: Performed By: #### L 100.0500, L501.5200, L500.4050 ####[facility] [address] [place], [address] Hematocrit (Bld) [Volume fraction] 31.4 % Low 37-47 [facility] Comment on above: Performed By: #### L 100.0500, L501.5200, L500.4050 ####[facility] [address] [place], [address] Hemoglobin (Bld) [Mass/Vol] 9.4 g/dL Low 12.0-15.0 [facility] Comment on above: Performed By: #### L 100.0500, L501.5200, L500.4050 ####[facility] [address] [place], [address] MCH (RBC) [Entitic mass] 27.0 pg Normal 27.0-32.0 [facility] Comment on above: Performed By: #### L 100.0500, L501.5200, L500.4050 ####[facility] [address] [place], [address] MCHC (RBC) [Mass/Vol] 29.9 g/dL Low 32-36 [facility] Comment on above: Performed By: #### L 100.0500, L501.5200, L500.4050 ####[facility] [address] [place], [address] MCV (RBC) [Entitic vol] 90.2 fL Normal 81-99 [facility] Comment on above: Performed By: #### L 100.0500, L501.5200, L500.4050 ####[facility] [address] [place], [address] Platelet mean volume (Bld) [Entitic vol] 10.1 fL Normal 6.2-12.0 [facility] Comment on above: Performed By: #### L 100.0500, L501.5200, L500.4050 ####[facility] [address] [place], [address] Platelets (Bld) [#/Vol] 183 10*3/uL Normal 150-450 [facility] Comment on above: Performed By: #### L 100.0500, L501.5200, L500.4050 ####[facility] [address] [place], [address] RBC (Bld) [#/Vol] 3.48 10*6/uL Low 4.2-5.4 [facility] Comment on above: Performed By: #### L 100.0500, L501.5200, L500.4050 ####[facility] [address] [place], [address] RDW SD 61.3 fl High 35.1-43.9 [facility] Comment on above: Performed By: #### L 100.0500, L501.5200, L500.4050 ####[facility] [address] [place], [address] WBC (Bld) [#/Vol] 3.8 10*3/uL Low 4.4-11.0 [facility] Comment on above: Performed By: #### L 100.0500, L501.5200, L500.4050 ####[facility] [address] [place], [address] Calcium [Mass/Vol]Ordered By : Millie Massey on 09-09-2024 Serum or plasma calcium measurement (mass/volume) 8.8 mg/dL 7.6-11.0 [facility] Carbon dioxide, total [Moles /volume] in Central venous bloodOrdered By: Millie Massey on 09-09-2024 CO2 [Moles/Vol] 30.2 mmol/L 21.0-32.0 [facility] Carbon dioxide, total [Moles/volume] in Central venous blood 30.2 mmol/L 21.0-32.0 [facility] Chloride assayOrdered By: Carter Massey on 09-09-2024 Chloride [Moles/Vol] 96 mmol/L Low 98-108 [facility] Chloride assay 96 mmol/L Low 98-108 [facility] Comprehensive Metabolic Prof ilon 09-09-2024 Albumin [Mass/Vol] 2.4 g/dL Low 3.4-4.8 [facility] Comment on above: Performed By: #### L 100.0500, L501.5200, L500.4050 ####[facility] [address] [place], [address] Albumin/Globulin [Mass ratio] 0.6 {ratio} Low 0.9-2.4 [facility] Comment on above: Performed By: #### L 100.0500, L501.5200, L500.4050 ####[facility] [address] [place], [address] ALK PHOS 93 U/L Normal 35-104 [facility] Comment on above: Performed By: #### L 100.0500, L501.5200, L500.4050 ####[facility] [address] [place], [address] ALT [Catalytic activity/Vol] 26 U/L Normal <=34 [facility] Comment on above: Performed By: #### L 100.0500, L501.5200, L500.4050 ####[facility] [address] [place], [address] AST [Catalytic activity/Vol] 54 U/L High <=31 [facility] Comment on above: Performed By: #### L 100.0500, L501.5200, L500.4050 ####[facility] [address] [place], [address] Bilirubin [Mass/Vol] 0.24 mg/dL Normal 0.00-1.30 [facility] Comment on above: Performed By: #### L 100.0500, L501.5200, L500.4050 ####[facility] [address] [place], [address] BUN/CRE 36.3 RATIO High 10-20 [facility] Comment on above: Performed By: #### L 100.0500, L501.5200, L500.4050 ####[facility] [address] [place], [address] Calcium [Mass/Vol] 8.8 mg/dL Normal 7.6-11.0 [facility] Comment on above: Performed By: #### L 100.0500, L501.5200, L500.4050 ####[facility] [address] [place], [address] Chloride [Moles/Vol] 96 mmol/L Low 98-108 [facility] Comment on above: Performed By: #### L 100.0500, L501.5200, L500.4050 ####[facility] [address] [place], [address] CO2 [Moles/Vol] 30.2 mmol/L Normal 21.0-32.0 [facility] Comment on above: Performed By: #### L 100.0500, L501.5200, L500.4050 ####[facility] [address] [place], [address] Creatinine [Mass/Vol] 1.35 mg/dL High 0.70-1.20 [facility] Comment on above: Performed By: #### L 100.0500, L501.5200, L500.4050 ####[facility] [address] [place], [address] GAP 8 Normal 5-15 [facility] Comment on above: Performed By: #### L 100.0500, L501.5200, L500.4050 ####[facility] [address] [place], [address] GFR/1.73 sq M.predicted among non-blacks MDRD (S/P/Bld) [Vol rate/Area] 44 mL/min/{1.73_m2} Low >60 [facility] Comment on above: Result Comment: mL/m in/1.73m2 CKD-EPI Creatinine Equation (2020) Performed By: #### L 100.0500, L501.5200, L500.4050 ####[facility] [address] [place], [address] Globulin (S) [Mass/Vol] 3.7 g/dL Normal 2.2-4.2 [facility] Comment on above: Performed By: #### L 100.0500, L501.5200, L500.4050 ####[facility] [address] [place], [address] Glucose [Mass/Vol] 115 mg/dL High 70-99 [facility] Comment on above: Performed By: #### L 100.0500, L501.5200, L500.4050 ####[facility] [address] [place], [address] Potassium [Moles/Vol] 3.1 mmol/L Low 3.3-5.1 [facility] Comment on above: Performed By: #### L 100.0500, L501.5200, L500.4050 ####[facility] [address] [place], [address] Sodium [Moles/Vol] 133 mmol/L Normal 133-145 [facility] Comment on above: Performed By: #### L 100.0500, L501.5200, L500.4050 ####[facility] [address] [place], [address] T PROT 6.1 g/dL Normal 5.9-8.4 [facility] Comment on above: Performed By: #### L 100.0500, L501.5200, L500.4050 ####[facility] [address] [place], [address] Urea nitrogen [Mass/Vol] 49 mg/dL High 4-19 [facility] Comment on above: Performed By: #### L 100.0500, L501.5200, L500.4050 ####[facility] [address] [place], [address] Creatinine [Mass/Vol]Ordered By: Millie Massey on 09-09-2024 Serum creatinine measurement (mass/volume) 1.35 mg/dL High 0.70-1.20 [facility] Erythrocyte distribution wid th (RBC) [Ratio]Ordered By: Millie Massey on 09-09-2024 Erythrocyte distribution width ratio 18.6 % High 11.6-14.6 [facility] Erythrocyte distribution width standard deviation 61.3 fl High 35.1-43.9 [facility] Erythrocyte distribution wid th ratioOrdered By: Millie Massey on 09-09-2024 Erythrocyte distribution width (RBC) [Ratio] 18.6 % High 11.6-14.6 [facility] Erythrocyte distribution wid th standard deviationOrdered By: Millie Massey on 09-09-2024 Erythrocyte distribution width (RBC) [Ratio] 61.3 fl High 35.1-43.9 [facility] GFR/1.73 sq M.predicted víctor g non-blacks MDRD (S/P/Bld) [Vol rate/Area]Ordered By: Millie Massey on 09-09-2024 Glomerular filtration rate (GFR) estimation/1.73 sq m using serum, plasma, or whole b 44 Low >60 [facility] Glomerular filtration rate ( GFR) estimation/1.73 sq m using serum, plasma, or whole bOrdered By: Millie Massey on 09-09-2024 GFR/1.73 sq M.predicted among non-blacks MDRD (S/P/Bld) [Vol rate/Area] 44 mL/min/{1.73_m2} Low >60 [facility] Glucose [Mass/Vol]Ordered By : Millie Massey on 09-09-2024 Serum glucose measurement (mass/volume) 115 mg/dL High 70-99 [facility] Hematocrit Auto (Bld) [Volum e fraction]Ordered By: Millie Massey on 09-09-2024 Hematocrit (Bld) [Volume fraction] 31.4 % Low 37-47 [facility] Automated blood hematocrit (percentage) 31.4 % Low 37-47 [facility] Hemoglobin measurementOrdere d By: Millie Massey on 09-09-2024 Hemoglobin (Bld) [Mass/Vol] 9.4 g/dL Low 12.0-15.0 [facility] Hemoglobin measurement 9.4 g/dL Low 12.0-15.0 [facility] MCV (RBC) [Entitic vol]Order ed By: Millie Massey on 09-09-2024 MCV (mean corpuscular volume) determination 90.2 fL 81-99 [facility] MCV (mean corpuscular volume ) determinationOrdered By: Millie Massey on 09-09-2024 MCV (RBC) [Entitic vol] 90.2 fL 81-99 [facility] Magnesiumon 09-09-2024 Magnesium [Mass/Vol] 2.0 mg/dL Normal 1.5-2.2 [facility] Comment on above: Performed By: #### L 100.0500, L501.5200, L500.4050 ####[facility] [id number] [place], [address] Magnesium (Unsp spec) [Mass/ Vol]Ordered By: Millie Massey on 09-09-2024 Magnesium measurement (mass/volume) 2.0 mg/dL 1.5-2.2 [facility] Magnesium measurement (mass/ volume)Ordered By: Millie Massey on 09-09-2024 Magnesium (Unsp spec) [Mass/Vol] 2.0 mg/dL 1.5-2.2 [facility] Mean corpuscular hemoglobin (MCH) determinationOrdered By: Millie Massey on 09-09-2024 MCH (RBC) [Entitic mass] 27.0 pg 27.0-32.0 [facility] Mean corpuscular hemoglobin (MCH) determination 27.0 pg 27.0-32.0 [facility] Mean corpuscular hemoglobin concentration (MCHC) determinationOrdered By: Millie Massey on 09-09-2024 Mean corpuscular hemoglobin concentration (MCHC) determination 29.9 g/dL Low 32-36 [facility] Mean platelet volume determi nationOrdered By: Millie Massey on 09-09-2024 Mean platelet volume determination 10.1 fl 6.2-12.0 [facility] No Panel InformationOrdered By: Millie Massey on 09-09-2024 54 U/L High <32 [facility] Platelet countOrdered By: Carter Massey on 09-09-2024 Platelets (Bld) [#/Vol] 183 10*3/uL 150-450 [facility] Platelet count 183 K/mm3 150-450 [facility] Potassium (Unsp spec) [Mass/ Vol]Ordered By: Millie Massey on 09-09-2024 Potassium measurement (mass/volume) 3.1 mmol/L Low 3.3-5.1 [facility] Potassium measurement (mass/ volume)Ordered By: Millie Massey on 09-09-2024 Potassium (Unsp spec) [Mass/Vol] 3.1 mmol/L Low 3.3-5.1 [facility] RBC Auto (Bld) [#/Vol]Ordere d By: Millie Massey on 09-09-2024 RBC (Bld) [#/Vol] 3.48 10*6/uL Low 4.2-5.4 [facility] Automated blood erythrocyte count 3.48 M/mm3 Low 4.2-5.4 [facility] Serum creatinine measurement (mass/volume)Ordered By: Millie Massey on 09-09-2024 Creatinine [Mass/Vol] 1.35 mg/dL High 0.70-1.20 [facility] Serum globulin measurementOr dered By: Millie Massey on 09-09-2024 Globulin (S) [Mass/Vol] 3.7 g/dL 2.2-4.2 [facility] Serum globulin measurement 3.7 g/dL 2.2-4.2 [facility] Serum glucose measurement (m ass/volume)Ordered By: Millie Massey on 09-09-2024 Glucose [Mass/Vol] 115 mg/dL High 70-99 [facility] Serum or plasma alanine camargo otransferase (ALT) measurementOrdered By: Millie Massey on 09-09-2024 ALT [Catalytic activity/Vol] 26 U/L <35 [facility] Serum or plasma albumin megan urement (mass/volume)Ordered By: Millie Massey on 09-09-2024 Albumin [Mass/Vol] 2.4 g/dL Low 3.4-4.8 [facility] Serum or plasma albumin/glob ulin mass ratioOrdered By: Millie Massey on 09-09-2024 Albumin/Globulin [Mass ratio] 0.6 {ratio} Low 0.9-2.4 [facility] Serum or plasma alkaline susan sphatase measurementOrdered By: Millie Massey on 09-09-2024 ALP [Catalytic activity/Vol] 93 U/L 35-104 [facility] Serum or plasma calcium megan urement (mass/volume)Ordered By: Millie Massey on 09-09-2024 Calcium [Mass/Vol] 8.8 mg/dL 7.6-11.0 [facility] Serum or plasma urea nitroge n measurement (mass/volume)Ordered By: Millie Massey on 09-09-2024 Urea nitrogen [Mass/Vol] 49 mg/dL High 4-19 [facility] Sodium levelOrdered By: Silvana Massey on 09-09-2024 Sodium [Moles/Vol] 133 mmol/L 133-145 [facility] Sodium level 133 mmol/L 133-145 [facility] Total proteinOrdered By: Lesli Massey on 09-09-2024 Protein [Mass/Vol] 6.1 g/dL 5.9-8.4 [facility] Total protein 6.1 g/dL 5.9-8.4 [facility] Urea nitrogen [Mass/Vol]Orde red By: Millie Massey on 09-09-2024 Serum or plasma urea nitrogen measurement (mass/volume) 49 mg/dL High 09-14 [facility] White blood cell (WBC) count Ordered By: Millie Massey on 09-09-2024 WBC (Bld) [#/Vol] 3.8 10*3/uL Low 4.4-11.0 [facility] White blood cell (WBC) count 3.8 K/mm3 Low 4.4-11.0 [facility] ALP [Catalytic activity/Vol] Ordered By: Millie Massey on 09-02-2024 Serum or plasma alkaline phosphatase measurement 81 U/L 35-104 [facility] ALT [Catalytic activity/Vol] Ordered By: Millie Massey on 09-02-2024 Serum or plasma alanine aminotransferase (ALT) measurement 16 U/L <35 [facility] Albumin [Mass/Vol]Ordered By : Millie Massey on 09-02-2024 Serum or plasma albumin measurement (mass/volume) 2.3 g/dL Low 3.4-4.8 [facility] Albumin/Globulin [Mass ratio ]Ordered By: Millie Massey on 09-02-2024 Serum or plasma albumin/globulin mass ratio 0.6 RATIO Low 0.9-2.4 [facility] Anion gap [Moles/Vol]Ordered By: Millie Massey on 09-02-2024 Anion gap in Serum or Plasma 10 5-15 [facility] Anion gap in Serum or Plasma Ordered By: Millie Massey on 09-02-2024 Anion gap [Moles/Vol] 10 mmol/L 5-15 [facility] BUN/creatinine ratioOrdered By: Millie Massey on 09-02-2024 Urea nitrogen/Creatinine [Mass ratio] 22.5 mg/mg High 10-20 [facility] BUN/creatinine ratio 22.5 RATIO High 10-20 [facility] Bilirubin, totalOrdered By: Millie Massey on 09-02-2024 Bilirubin [Mass/Vol] 0.27 mg/dL Normal 0.00-1.30 [facility] Comment on above: Order Comment: Performed By: #### L 501.5200, L500.4050, L100.0500, L100.4500 ####[facility] [address] [place], [address] Bilirubin, total 0.27 mg/dL 0.00-1.30 [facility] Blood manual differential co mment interpretation (narrative result)Ordered By: Millie Massey on 09-02-2024 Manual differential comment Horace (Bld) [Interp] See comment [facility] CBC-Complete Blood Cnt No Di ffon 09-02-2024 Erythrocyte distribution width (RBC) [Ratio] 22.0 % High 11.6-14.6 [facility] Comment on above: Order Comment: Performed By: #### L 501.5200, L500.4050, L100.0500, L100.4500 ####[facility] [address] [place], [address] Hematocrit (Bld) [Volume fraction] 34.9 % Low 37-47 [facility] Comment on above: Order Comment: Performed By: #### L 501.5200, L500.4050, L100.0500, L100.4500 ####[facility] [address] [place], [address] Hemoglobin (Bld) [Mass/Vol] 10.7 g/dL Low 12.0-15.0 [facility] Comment on above: Order Comment: Performed By: #### L 501.5200, L500.4050, L100.0500, L100.4500 ####[facility] [address] [place], [address] MCH (RBC) [Entitic mass] 28.0 pg Normal 27.0-32.0 [facility] Comment on above: Order Comment: - Performed By: #### L 501.5200, L500.4050, L100.0500, L100.4500 ####[facility] [address] [place], [address] MCHC (RBC) [Mass/Vol] 30.7 g/dL Low 32-36 [facility] Comment on above: Order Comment: - Performed By: #### L 501.5200, L500.4050, L100.0500, L100.4500 ####[facility] [address] [place], [address] MCV (RBC) [Entitic vol] 91.4 fL Normal 81-99 [facility] Comment on above: Order Comment: - Performed By: #### L 501.5200, L500.4050, L100.0500, L100.4500 ####[facility] [address] [place], [address] Platelet mean volume (Bld) [Entitic vol] 10.2 fL Normal 6.2-12.0 [facility] Comment on above: Order Comment: - Performed By: #### L 501.5200, L500.4050, L100.0500, L100.4500 ####[facility] [address] [place], [address] Platelets (Bld) [#/Vol] 178 10*3/uL Normal 150-450 [facility] Comment on above: Order Comment: - Performed By: #### L 501.5200, L500.4050, L100.0500, L100.4500 ####[facility] [address] [place], [address] RBC (Bld) [#/Vol] 3.82 10*6/uL Low 4.2-5.4 [facility] Comment on above: Order Comment: Performed By: #### L 501.5200, L500.4050, L100.0500, L100.4500 ####[facility] [address] [place], [address] RDW SD 72.8 fl High 35.1-43.9 [facility] Comment on above: Order Comment: Performed By: #### L 501.5200, L500.4050, L100.0500, L100.4500 ####[facility] [address] [place], [address] WBC (Bld) [#/Vol] 8.0 10*3/uL Normal 4.4-11.0 [facility] Comment on above: Order Comment: Performed By: #### L 501.5200, L500.4050, L100.0500, L100.4500 ####[facility] [address] [place], [address] Calcium [Mass/Vol]Ordered By : Millie Massey on 09-02-2024 Serum or plasma calcium measurement (mass/volume) 7.8 mg/dL 7.6-11.0 [facility] Carbon dioxide, total [Moles /volume] in Central venous bloodOrdered By: Millie Massey on 09-02-2024 CO2 [Moles/Vol] 25.9 mmol/L Normal 21.0-32.0 [facility] Comment on above: Order Comment: Performed By: #### L 501.5200, L500.4050, L100.0500, L100.4500 ####[facility] [address] [place], [address] Carbon dioxide, total [Moles/volume] in Central venous blood 25.9 mmol/L 21.0-32.0 [facility] Chloride assayOrdered By: Carter Massey on 09-02-2024 Chloride [Moles/Vol] 96 mmol/L Low 98-108 [facility] Comment on above: Order Comment: - Performed By: #### L 501.5200, L500.4050, L100.0500, L100.4500 ####[facility] [address] [place], [address] Chloride assay 96 mmol/L Low 98-108 [facility] Comprehensive Metabolic Prof ilon 09-02-2024 ALK PHOS 81 U/L Normal 35-104 [facility] Comment on above: Order Comment: Performed By: #### L 501.5200, L500.4050, L100.0500, L100.4500 ####[facility] [address] [place], [address] AST [Catalytic activity/Vol] 47 U/L High <=31 [facility] Comment on above: Order Comment: - Performed By: #### L 501.5200, L500.4050, L100.0500, L100.4500 ####[facility] [address] [place], [address] BUN/CRE 22.5 RATIO High 10-20 [facility] Comment on above: Order Comment: - Performed By: #### L 501.5200, L500.4050, L100.0500, L100.4500 ####[facility] [address] [place], [address] GAP 10 Normal 5-15 [facility] Comment on above: Order Comment: - Performed By: #### L 501.5200, L500.4050, L100.0500, L100.4500 ####[facility] [address] [place], [address] Potassium [Moles/Vol] 3.7 mmol/L Normal 3.3-5.1 [facility] Comment on above: Order Comment: Performed By: #### L 501.5200, L500.4050, L100.0500, L100.4500 ####[facility] [address] [place], [address] T PROT 5.9 g/dL Normal 5.9-8.4 [facility] Comment on above: Order Comment: Performed By: #### L 501.5200, L500.4050, L100.0500, L100.4500 ####[facility] [address] [place], [address] Creatinine [Mass/Vol]Ordered By: Millie Massey on 09-02-2024 Serum creatinine measurement (mass/volume) 0.91 mg/dL 0.70-1.20 [facility] Differential Commenton 09-02 SMEAR COMMENT Normal [facility] Comment on above: Order Comment: Result Comment: ANIS OCYTOSIS 1+ Performed By: #### L 501.5200, L500.4050, L100.0500, L100.4500 ####[facility] [address] [place], [address] Erythrocyte distribution wid th (RBC) [Ratio]Ordered By: Millie Massey on 09-02-2024 Erythrocyte distribution width ratio 22.0 % High 11.6-14.6 [facility] Erythrocyte distribution width standard deviation 72.8 fl High 35.1-43.9 [facility] Erythrocyte distribution wid th ratioOrdered By: Millie Massey on 09-02-2024 Erythrocyte distribution width (RBC) [Ratio] 22.0 % High 11.6-14.6 [facility] Erythrocyte distribution wid th standard deviationOrdered By: Millie Massey on 09-02-2024 Erythrocyte distribution width (RBC) [Ratio] 72.8 fl High 35.1-43.9 [facility] GFR/1.73 sq M.predicted víctor g non-blacks MDRD (S/P/Bld) [Vol rate/Area]Ordered By: Millie Massey on 09-02-2024 Glomerular filtration rate (GFR) estimation/1.73 sq m using serum, plasma, or whole b 71 >60 [facility] Glomerular filtration rate ( GFR) estimation/1.73 sq m using serum, plasma, or whole bOrdered By: Millie Massey on 09-02-2024 GFR/1.73 sq M.predicted among non-blacks MDRD (S/P/Bld) [Vol rate/Area] 71 mL/min/{1.73_m2} Normal >60 [facility] Comment on above: Order Comment: Result Comment: mL/m in/1.73m2 CKD-EPI Creatinine Equation (2020) Performed By: #### L 501.5200, L500.4050, L100.0500, L100.4500 ####[facility] [address] [place], [address] Glucose [Mass/Vol]Ordered By : Millie Massey on 09-02-2024 Serum glucose measurement (mass/volume) 73 mg/dL 70-99 [facility] Hematocrit Auto (Bld) [Volum e fraction]Ordered By: Millie Massey on 09-02-2024 Hematocrit (Bld) [Volume fraction] 34.9 % Low 37-47 [facility] Automated blood hematocrit (percentage) 34.9 % Low 37-47 [facility] Hemoglobin measurementOrdere d By: Millie Massey on 09-02-2024 Hemoglobin (Bld) [Mass/Vol] 10.7 g/dL Low 12.0-15.0 [facility] Hemoglobin measurement 10.7 g/dL Low 12.0-15.0 [facility] MCV (RBC) [Entitic vol]Order ed By: Millie Massey on 09-02-2024 MCV (mean corpuscular volume) determination 91.4 fL 81-99 [facility] MCV (mean corpuscular volume ) determinationOrdered By: Millie Massey on 09-02-2024 MCV (RBC) [Entitic vol] 91.4 fL 81-99 [facility] Magnesiumon 09-02-2024 Magnesium [Mass/Vol] 2.4 mg/dL High 1.5-2.2 [facility] Comment on above: Order Comment: Performed By: #### L 501.5200, L500.4050, L100.0500, L100.4500 ####[facility] [address] [place], [address] Magnesium (Unsp spec) [Mass/ Vol]Ordered By: Millie Massey on 09-02-2024 Magnesium measurement (mass/volume) 2.4 mg/dL High 1.5-2.2 [facility] Magnesium measurement (mass/ volume)Ordered By: Millie Massey on 09-02-2024 Magnesium (Unsp spec) [Mass/Vol] 2.4 mg/dL High 1.5-2.2 [facility] Manual differential comment Horace (Bld) [Interp]Ordered By: Millie Massey on 09-02-2024 Blood manual differential comment interpretation (narrative result) See comment [facility] Mean corpuscular hemoglobin (MCH) determinationOrdered By: Millie Massey on 09-02-2024 MCH (RBC) [Entitic mass] 28.0 pg 27.0-32.0 [facility] Mean corpuscular hemoglobin (MCH) determination 28.0 pg 27.0-32.0 [facility] Mean corpuscular hemoglobin concentration (MCHC) determinationOrdered By: Millie Massey on 09-02-2024 Mean corpuscular hemoglobin concentration (MCHC) determination 30.7 g/dL Low 32-36 [facility] Mean platelet volume determi nationOrdered By: Millie Massey on 09-02-2024 Mean platelet volume determination 10.2 fl 6.2-12.0 [facility] No Panel InformationOrdered By: Millie Massey on 09-02-2024 47 U/L High <32 [facility] Platelet countOrdered By: Carter Massey on 09-02-2024 Platelets (Bld) [#/Vol] 178 10*3/uL 150-450 [facility] Platelet count 178 K/mm3 150-450 [facility] Potassium (Unsp spec) [Mass/ Vol]Ordered By: Millie Massey on 09-02-2024 Potassium measurement (mass/volume) 3.7 mmol/L 3.3-5.1 [facility] Potassium measurement (mass/ volume)Ordered By: Millie Massey on 09-02-2024 Potassium (Unsp spec) [Mass/Vol] 3.7 mmol/L 3.3-5.1 [facility] RBC Auto (Bld) [#/Vol]Ordere d By: Millie Massey on 09-02-2024 RBC (Bld) [#/Vol] 3.82 10*6/uL Low 4.2-5.4 [facility] Automated blood erythrocyte count 3.82 M/mm3 Low 4.2-5.4 [facility] Serum creatinine measurement (mass/volume)Ordered By: Millie Massey on 09-02-2024 Creatinine [Mass/Vol] 0.91 mg/dL Normal 0.70-1.20 [facility] Comment on above: Order Comment: Performed By: #### L 501.5200, L500.4050, L100.0500, L100.4500 ####[facility] [address] [place], [place], [id number] Serum globulin measurementOr dered By: Millie Massey on 09-02-2024 Globulin (S) [Mass/Vol] 3.7 g/dL Normal 2.2-4.2 [facility] Comment on above: Order Comment: Performed By: #### L 501.5200, L500.4050, L100.0500, L100.4500 ####[facility] [address] [place], [place], [address] Serum globulin measurement 3.7 g/dL 2.2-4.2 [facility] Serum glucose measurement (m ass/volume)Ordered By: Millie Massey on 09-02-2024 Glucose [Mass/Vol] 73 mg/dL Normal 70-99 [facility] Comment on above: Order Comment: Performed By: #### L 501.5200, L500.4050, L100.0500, L100.4500 ####[facility] [address] [place], [address] Serum or plasma alanine camargo otransferase (ALT) measurementOrdered By: Millie Massey on 09-02-2024 ALT [Catalytic activity/Vol] 16 U/L Normal <=34 [facility] Comment on above: Order Comment: Performed By: #### L 501.5200, L500.4050, L100.0500, L100.4500 ####[facility] [address] [place], [address] Serum or plasma albumin megan urement (mass/volume)Ordered By: Millie Massey on 09-02-2024 Albumin [Mass/Vol] 2.3 g/dL Low 3.4-4.8 [facility] Comment on above: Order Comment: Performed By: #### L 501.5200, L500.4050, L100.0500, L100.4500 ####[facility] [address] [place], [address] Serum or plasma albumin/glob ulin mass ratioOrdered By: Millie Massey on 09-02-2024 Albumin/Globulin [Mass ratio] 0.6 {ratio} Low 0.9-2.4 [facility] Comment on above: Order Comment: Performed By: #### L 501.5200, L500.4050, L100.0500, L100.4500 ####[facility] [address] [place], [address] Serum or plasma alkaline susan sphatase measurementOrdered By: Millie Massey on 09-02-2024 ALP [Catalytic activity/Vol] 81 U/L 35-104 [facility] Serum or plasma calcium megan urement (mass/volume)Ordered By: Millie Massey on 09-02-2024 Calcium [Mass/Vol] 7.8 mg/dL Normal 7.6-11.0 [facility] Comment on above: Order Comment: Performed By: #### L 501.5200, L500.4050, L100.0500, L100.4500 ####[facility] [address] [place], [address] Serum or plasma urea nitroge n measurement (mass/volume)Ordered By: Millie Massey on 09-02-2024 Urea nitrogen [Mass/Vol] 21 mg/dL [facility] 09-14 [facility] Comment on above: Order Comment: Performed By: #### L 501.5200, L500.4050, L100.0500, L100.4500 ####[facility] [address] [place], [place], [address] Sodium levelOrdered By: Silvana Massey on 09-02-2024 Sodium [Moles/Vol] 133 mmol/L Normal 133-145 [facility] Comment on above: Order Comment: Performed By: #### L 501.5200, L500.4050, L100.0500, L100.4500 ####[facility] [address] [place], [place], [address] Sodium level 133 mmol/L 133-145 [facility] Total proteinOrdered By: Lesli Massey on 09-02-2024 Protein [Mass/Vol] 5.9 g/dL 5.9-8.4 [facility] Total protein 5.9 g/dL 5.9-8.4 [facility] Urea nitrogen [Mass/Vol]Orde red By: Millie Massey on 09-02-2024 Serum or plasma urea nitrogen measurement (mass/volume) 21 mg/dL High 09-14 [facility] White blood cell (WBC) count Ordered By: Millie Massey on 09-02-2024 WBC (Bld) [#/Vol] 8.0 10*3/uL 4.4-11.0 [facility] White blood cell (WBC) count 8.0 K/mm3 4.4-11.0 [facility] [id number] 08-30-2024 ANTIBODY ID Normal [facility] Comment on above: Order Comment: [id number] Result Comment: CFYA Performed By: #### B [id number], [facility], BTS ####[facility] [address] [place], [place], [address] BRCon 08-29-2024 RC Normal [facility] Comment on above: Result Comment: [id number] ON RC PRSMD TRFSD 08/31/24 [id number] ON RC PRSMD TRFSD 08/31/24 1018 Performed By: #### B [id number], [facility], BTS ####[facility] [address] [place], [place], [address] Type AND Screenon 08-29-2024 ABO and Rh group Nom (Bld) Blood group O Rh(D) positive Normal [facility] Comment on above: Order Comment: NYA Performed By: #### B [id number], [facility], BTS ####[facility] [address] [place], [place], [address] Blood manual differential co mment interpretation (narrative result)Ordered By: Millie Massey on 08-28-2024 Manual differential comment Horace (Bld) [Interp] See comment [facility] CBC-Complete Blood Cnt No Di ffon 08-28-2024 Erythrocyte distribution width (RBC) [Ratio] 21.5 % High 11.6-14.6 [facility] Comment on above: Order Comment: 200 Performed By: #### L 100.0500, L100.4500 ####[facility] [address] [place], [place], [address] Hematocrit (Bld) [Volume fraction] 24.2 % Low 37-47 [facility] Comment on above: Order Comment: 200 Performed By: #### L 100.0500, L100.4500 ####[facility] [address] [place], [address] Hemoglobin (Bld) [Mass/Vol] 7.1 g/dL Low 12.0-15.0 [facility] [facility] Comment on above: Order Comment: 200 Performed By: #### L 100.0500, L100.4500 ####[facility] [address] [place], [address] MCH (RBC) [Entitic mass] 27.8 pg Normal 27.0-32.0 [facility] Comment on above: Order Comment: 200 Performed By: #### L 100.0500, L100.4500 ####[facility] [address] [place], [address] MCHC (RBC) [Mass/Vol] 29.3 g/dL Low 32-36 [facility] Comment on above: Order Comment: 200 Performed By: #### L 100.0500, L100.4500 ####[facility] [address] [place], [address] MCV (RBC) [Entitic vol] 94.9 fL Normal 81-99 [facility] Comment on above: Order Comment: 200 Performed By: #### L 100.0500, L100.4500 ####[facility] [address] [place], [address] Platelet mean volume (Bld) [Entitic vol] 10.8 fL Normal 6.2-12.0 [facility] Comment on above: Order Comment: 200 Performed By: #### L 100.0500, L100.4500 ####[facility] [address] [place], [address] Platelets (Bld) [#/Vol] 261 10*3/uL Normal 150-450 [facility] Comment on above: Order Comment: 200 Performed By: #### L 100.0500, L100.4500 ####[facility] [address] [place], [address] RBC (Bld) [#/Vol] 2.55 10*6/uL Low 4.2-5.4 [facility] Comment on above: Order Comment: 200 Performed By: #### L 100.0500, L100.4500 ####[facility] [address] [place], [address] RDW SD 74.1 fl High 35.1-43.9 [facility] Comment on above: Order Comment: 200 Performed By: #### L 100.0500, L100.4500 ####[facility] [address] [place], [address] WBC (Bld) [#/Vol] 4.3 10*3/uL Low 4.4-11.0 [facility] Comment on above: Order Comment: 200 Performed By: #### L 100.0500, L100.4500 ####[facility] [address] [place], [address] Differential Commenton 08-28 SMEAR COMMENT Normal [facility] Comment on above: Order Comment: 200 Result Comment: ANIS OCYTOSIS = 1+POLYCHROMASIA = 1+PLATELET ESTIMATE = ADEQUATE Performed By: #### L 100.0500, L100.4500 ####[facility] [address] [place], [address] Erythrocyte distribution wid th (RBC) [Ratio]Ordered By: Millie Massey on 08-28-2024 Erythrocyte distribution width ratio 21.5 % High 11.6-14.6 [facility] Erythrocyte distribution width standard deviation 74.1 fl High 35.1-43.9 [facility] Erythrocyte distribution wid th ratioOrdered By: Millie Massey on 08-28-2024 Erythrocyte distribution width (RBC) [Ratio] 21.5 % High 11.6-14.6 [facility] Erythrocyte distribution wid th standard deviationOrdered By: Millie Massey on 08-28-2024 Erythrocyte distribution width (RBC) [Ratio] 74.1 fl High 35.1-43.9 [facility] Hematocrit Auto (Bld) [Volum e fraction]Ordered By: Millie Massey on 08-28-2024 Hematocrit (Bld) [Volume fraction] 24.2 % Low 37-47 [facility] Automated blood hematocrit (percentage) 24.2 % Low 37-47 [facility] Hemoglobin measurementOrdere d By: Millie Massey on 08-28-2024 Hemoglobin (Bld) [Mass/Vol] 7.1 g/dL Low 12.0-15.0 [facility] Hemoglobin measurement 7.1 g/dL Low 12.0-15.0 [facility] MCV (RBC) [Entitic vol]Order ed By: Millie Massey on 08-28-2024 MCV (mean corpuscular volume) determination 94.9 fL 81-99 [facility] MCV (mean corpuscular volume ) determinationOrdered By: Millie Massey on 08-28-2024 MCV (RBC) [Entitic vol] 94.9 fL 81-99 [facility] Manual differential comment Horace (Bld) [Interp]Ordered By: Millie Massey on 08-28-2024 Blood manual differential comment interpretation (narrative result) See comment [facility] Mean corpuscular hemoglobin (MCH) determinationOrdered By: Millie Massey on 08-28-2024 MCH (RBC) [Entitic mass] 27.8 pg 27.0-32.0 [facility] Mean corpuscular hemoglobin (MCH) determination 27.8 pg 27.0-32.0 [facility] Mean corpuscular hemoglobin concentration (MCHC) determinationOrdered By: Millie Massey on 08-28-2024 Mean corpuscular hemoglobin concentration (MCHC) determination 29.3 g/dL Low 32-36 [facility] Mean platelet volume determi nationOrdered By: Millie Massey on 08-28-2024 Mean platelet volume determination 10.8 fl 6.2-12.0 [facility] Platelet countOrdered By: Carter Massey on 08-28-2024 Platelets (Bld) [#/Vol] 261 10*3/uL 150-450 [facility] Platelet count 261 K/mm3 150-450 [facility] RBC Auto (Bld) [#/Vol]Ordere d By: Millie Massey on 08-28-2024 RBC (Bld) [#/Vol] 2.55 10*6/uL Low 4.2-5.4 [facility] Automated blood erythrocyte count 2.55 M/mm3 Low 4.2-5.4 [facility] White blood cell (WBC) count Ordered By: Millie Massey on 08-28-2024 WBC (Bld) [#/Vol] 4.3 10*3/uL Low 4.4-11.0 [facility] White blood cell (WBC) count 4.3 K/mm3 Low 4.4-11.0 [facility] ALP [Catalytic activity/Vol] Ordered By: Millie Massey on 08-26-2024 Serum or plasma alkaline phosphatase measurement 81 U/L 35-104 [facility] ALT [Catalytic activity/Vol] Ordered By: Millie Massey on 08-26-2024 Serum or plasma alanine aminotransferase (ALT) measurement 10 U/L <35 [facility] Albumin [Mass/Vol]Ordered By : Millie Massey on 08-26-2024 Serum or plasma albumin measurement (mass/volume) 2.1 g/dL Low 3.4-4.8 [facility] Albumin/Globulin [Mass ratio ]Ordered By: Millie Massey on 08-26-2024 Serum or plasma albumin/globulin mass ratio 0.6 RATIO Low 0.9-2.4 [facility] Anion gap [Moles/Vol]Ordered By: Millie Massey on 08-26-2024 Anion gap in Serum or Plasma 12 5-15 [facility] Anion gap in Serum or Plasma Ordered By: Millie Massey on 08-26-2024 Anion gap [Moles/Vol] 12 mmol/L 5-15 [facility] BUN/creatinine ratioOrdered By: Millie Massey on 08-26-2024 Urea nitrogen/Creatinine [Mass ratio] 24.2 mg/mg High 10-20 [facility] BUN/creatinine ratio 24.2 RATIO High 10-20 [facility] Bilirubin, totalOrdered By: Millie Massey on 08-26-2024 Bilirubin [Mass/Vol] 0.19 mg/dL 0.00-1.30 [facility] Bilirubin, total 0.19 mg/dL 0.00-1.30 [facility] Blood manual differential co mment interpretation (narrative result)Ordered By: Millie Massey on 08-26-2024 Manual differential comment Horace (Bld) [Interp] COMMENT [facility] CBC-Complete Blood Cnt No Di ffon 08-26-2024 Erythrocyte distribution width (RBC) [Ratio] 21.6 % High 11.6-14.6 [facility] Comment on above: Order Comment: 206 Performed By: #### L 100.0500, L100.4500, L501.5200, L500.4050 ####[facility] [address] [place], [address] Hematocrit (Bld) [Volume fraction] 23.6 % Low 37-47 [facility] Comment on above: Order Comment: 206 Performed By: #### L 100.0500, L100.4500, L501.5200, L500.4050 ####[facility] [address] [place], [address] Hemoglobin (Bld) [Mass/Vol] 7.0 g/dL Low 12.0-15.0 [facility] Comment on above: Order Comment: 206 Performed By: #### L 100.0500, L100.4500, L501.5200, L500.4050 ####[facility] [address] [place], [address] MCH (RBC) [Entitic mass] 27.7 pg Normal 27.0-32.0 [facility] Comment on above: Order Comment: 206 Performed By: #### L 100.0500, L100.4500, L501.5200, L500.4050 ####[facility] [address] [place], [address] MCHC (RBC) [Mass/Vol] 29.7 g/dL Low 32-36 [facility] Comment on above: Order Comment: 206 Performed By: #### L 100.0500, L100.4500, L501.5200, L500.4050 ####[facility] [address] [place], [address] MCV (RBC) [Entitic vol] 93.3 fL Normal 81-99 [facility] Comment on above: Order Comment: 206 Performed By: #### L 100.0500, L100.4500, L501.5200, L500.4050 ####[facility] [address] [place], [address] Platelet mean volume (Bld) [Entitic vol] 10.2 fL Normal 6.2-12.0 [facility] Comment on above: Order Comment: 206 Performed By: #### L 100.0500, L100.4500, L501.5200, L500.4050 ####[facility] [address] [place], [address] Platelets (Bld) [#/Vol] 260 10*3/uL Normal 150-450 [facility] Comment on above: Order Comment: 206 Performed By: #### L 100.0500, L100.4500, L501.5200, L500.4050 ####[facility] [address] [place], [address] RBC (Bld) [#/Vol] 2.53 10*6/uL Low 4.2-5.4 [facility] Comment on above: Order Comment: 206 Performed By: #### L 100.0500, L100.4500, L501.5200, L500.4050 ####[facility] [address] [place], [address] RDW SD 71.9 fl High 35.1-43.9 [facility] Comment on above: Order Comment: 206 Performed By: #### L 100.0500, L100.4500, L501.5200, L500.4050 ####[facility] [address] [place], [address] WBC (Bld) [#/Vol] 4.2 10*3/uL Low 4.4-11.0 [facility] Comment on above: Order Comment: 206 Performed By: #### L 100.0500, L100.4500, L501.5200, L500.4050 ####[facility] [address] [place], [address] Calcium [Mass/Vol]Ordered By : Millie Massey on 08-26-2024 Serum or plasma calcium measurement (mass/volume) 8.2 mg/dL 7.6-11.0 [facility] Carbon dioxide, total [Moles /volume] in Central venous bloodOrdered By: Millie Massey on 08-26-2024 CO2 [Moles/Vol] 23.7 mmol/L 21.0-32.0 [facility] Carbon dioxide, total [Moles/volume] in Central venous blood 23.7 mmol/L 21.0-32.0 [facility] Chloride assayOrdered By: Carter Massey on 08-26-2024 Chloride [Moles/Vol] 96 mmol/L Low 98-108 [facility] Chloride assay 96 mmol/L Low 98-108 [facility] Comprehensive Metabolic Prof ilon 08-26-2024 Albumin [Mass/Vol] 2.1 g/dL Low 3.4-4.8 [facility] Comment on above: Order Comment: 206 Performed By: #### L 100.0500, L100.4500, L501.5200, L500.4050 ####[facility] [address] [place], [address] Albumin/Globulin [Mass ratio] 0.6 {ratio} Low 0.9-2.4 [facility] Comment on above: Order Comment: 206 Performed By: #### L 100.0500, L100.4500, L501.5200, L500.4050 ####[facility] [address] [place], [address] ALK PHOS 81 U/L Normal 35-104 [facility] Comment on above: Order Comment: 206 Performed By: #### L 100.0500, L100.4500, L501.5200, L500.4050 ####[facility] [address] [place], [address] ALT [Catalytic activity/Vol] 10 U/L Normal <=34 [facility] Comment on above: Order Comment: 206 Performed By: #### L 100.0500, L100.4500, L501.5200, L500.4050 ####[facility] [address] [place], [address] AST [Catalytic activity/Vol] 30 U/L Normal <=31 [facility] Comment on above: Order Comment: 206 Performed By: #### L 100.0500, L100.4500, L501.5200, L500.4050 ####[facility] [address] [place], [address] Bilirubin [Mass/Vol] 0.19 mg/dL Normal 0.00-1.30 [facility] Comment on above: Order Comment: 206 Performed By: #### L 100.0500, L100.4500, L501.5200, L500.4050 ####[facility] [address] [place], [address] BUN/CRE 24.2 RATIO High 10-20 [facility] Comment on above: Order Comment: 206 Performed By: #### L 100.0500, L100.4500, L501.5200, L500.4050 ####[facility] [address] [place], [address] Calcium [Mass/Vol] 8.2 mg/dL Normal 7.6-11.0 [facility] Comment on above: Order Comment: 206 Performed By: #### L 100.0500, L100.4500, L501.5200, L500.4050 ####[facility] [address] [place], [address] Chloride [Moles/Vol] 96 mmol/L Low 98-108 [facility] Comment on above: Order Comment: 206 Performed By: #### L 100.0500, L100.4500, L501.5200, L500.4050 ####[facility] [address] [place], [address] CO2 [Moles/Vol] 23.7 mmol/L Normal 21.0-32.0 [facility] Comment on above: Order Comment: 206 Performed By: #### L 100.0500, L100.4500, L501.5200, L500.4050 ####[facility] [address] [place], [address] Creatinine [Mass/Vol] 1.49 mg/dL High 0.70-1.20 [facility] Comment on above: Order Comment: 206 Performed By: #### L 100.0500, L100.4500, L501.5200, L500.4050 ####[facility] [address] [place], [address] GAP 12 Normal 5-15 [facility] Comment on above: Order Comment: 206 Performed By: #### L 100.0500, L100.4500, L501.5200, L500.4050 ####[facility] [address] [place], [address] GFR/1.73 sq M.predicted among non-blacks MDRD (S/P/Bld) [Vol rate/Area] 39 mL/min/{1.73_m2} Low >60 [facility] Comment on above: Order Comment: 206 Result Comment: mL/m in/1.73m2 CKD-EPI Creatinine Equation (2020) Performed By: #### L 100.0500, L100.4500, L501.5200, L500.4050 ####[facility] [address] [place], [address] Globulin (S) [Mass/Vol] 3.3 g/dL Normal 2.2-4.2 [facility] Comment on above: Order Comment: 206 Performed By: #### L 100.0500, L100.4500, L501.5200, L500.4050 ####[facility] [address] [place], [address] Glucose [Mass/Vol] 93 mg/dL Normal 70-99 [facility] Comment on above: Order Comment: 206 Performed By: #### L 100.0500, L100.4500, L501.5200, L500.4050 ####[facility] [address] [place], [address] Potassium [Moles/Vol] 4.9 mmol/L Normal 3.3-5.1 [facility] Comment on above: Order Comment: 206 Performed By: #### L 100.0500, L100.4500, L501.5200, L500.4050 ####[facility] [address] [place], [address] Sodium [Moles/Vol] 131 mmol/L Low 133-145 [facility] Comment on above: Order Comment: 206 Performed By: #### L 100.0500, L100.4500, L501.5200, L500.4050 ####[facility] [address] [place], [address] T PROT 5.4 g/dL Low 5.9-8.4 [facility] Comment on above: Order Comment: 206 Performed By: #### L 100.0500, L100.4500, L501.5200, L500.4050 ####[facility] [address] [place], [address] Urea nitrogen [Mass/Vol] 36 mg/dL High 4-19 [facility] Comment on above: Order Comment: 206 Performed By: #### L 100.0500, L100.4500, L501.5200, L500.4050 ####[facility] [address] [place], [address] Creatinine [Mass/Vol]Ordered By: Millie Massey on 08-26-2024 Serum creatinine measurement (mass/volume) 1.49 mg/dL High 0.70-1.20 [facility] Differential Commenton 08-26 SMEAR COMMENT COMMENT Normal [facility] Comment on above: Order Comment: 206 Result Comment: 2+ A NISO. Performed By: #### L 100.0500, L100.4500, L501.5200, L500.4050 ####[facility] [address] [place], [address] Erythrocyte distribution wid th (RBC) [Ratio]Ordered By: Millie Massey on 08-26-2024 Erythrocyte distribution width ratio 21.6 % High 11.6-14.6 [facility] Erythrocyte distribution width standard deviation 71.9 fl High 35.1-43.9 [facility] Erythrocyte distribution wid th ratioOrdered By: Millie Massey on 08-26-2024 Erythrocyte distribution width (RBC) [Ratio] 21.6 % High 11.6-14.6 [facility] Erythrocyte distribution wid th standard deviationOrdered By: Millie Massey on 08-26-2024 Erythrocyte distribution width (RBC) [Ratio] 71.9 fl High 35.1-43.9 [facility] GFR/1.73 sq M.predicted víctor g non-blacks MDRD (S/P/Bld) [Vol rate/Area]Ordered By: Millie Massey on 08-26-2024 Glomerular filtration rate (GFR) estimation/1.73 sq m using serum, plasma, or whole b 39 Low >60 [facility] Glomerular filtration rate ( GFR) estimation/1.73 sq m using serum, plasma, or whole bOrdered By: Millie Massey on 08-26-2024 GFR/1.73 sq M.predicted among non-blacks MDRD (S/P/Bld) [Vol rate/Area] 39 mL/min/{1.73_m2} Low >60 [facility] Glucose [Mass/Vol]Ordered By : Millie Massey on 08-26-2024 Serum glucose measurement (mass/volume) 93 mg/dL 70-99 [facility] Hematocrit Auto (Bld) [Volum e fraction]Ordered By: Millie Massey on 08-26-2024 Hematocrit (Bld) [Volume fraction] 23.6 % Low 37-47 [facility] Automated blood hematocrit (percentage) 23.6 % Low 37-47 [facility] Hemoglobin measurementOrdere d By: Millie Massey on 08-26-2024 Hemoglobin (Bld) [Mass/Vol] 7.0 g/dL Low 12.0-15.0 [facility] Hemoglobin measurement 7.0 g/dL Low 12.0-15.0 [facility] MCV (RBC) [Entitic vol]Order ed By: Millie Massey on 08-26-2024 MCV (mean corpuscular volume) determination 93.3 fL 81-99 [facility] MCV (mean corpuscular volume ) determinationOrdered By: Millie Massey on 08-26-2024 MCV (RBC) [Entitic vol] 93.3 fL 81-99 [facility] Magnesiumon 08-26-2024 Magnesium [Mass/Vol] 1.8 mg/dL Normal 1.5-2.2 [facility] Comment on above: Order Comment: 206 Performed By: #### L 100.0500, L100.4500, L501.5200, L500.4050 ####[facility] [address] [place], [address] Magnesium (Unsp spec) [Mass/ Vol]Ordered By: Millie Massey on 08-26-2024 Magnesium measurement (mass/volume) 1.8 mg/dL 1.5-2.2 [facility] Magnesium measurement (mass/ volume)Ordered By: Millie Massey on 08-26-2024 Magnesium (Unsp spec) [Mass/Vol] 1.8 mg/dL 1.5-2.2 [facility] Manual differential comment Horace (Bld) [Interp]Ordered By: Millie Massey on 08-26-2024 Blood manual differential comment interpretation (narrative result) COMMENT [facility] Mean corpuscular hemoglobin (MCH) determinationOrdered By: Millie Massey on 08-26-2024 MCH (RBC) [Entitic mass] 27.7 pg 27.0-32.0 [facility] Mean corpuscular hemoglobin (MCH) determination 27.7 pg 27.0-32.0 [facility] Mean corpuscular hemoglobin concentration (MCHC) determinationOrdered By: Millie Massey on 08-26-2024 Mean corpuscular hemoglobin concentration (MCHC) determination 29.7 g/dL Low 32-36 [facility] Mean platelet volume determi nationOrdered By: Millie Massey on 08-26-2024 Mean platelet volume determination 10.2 fl 6.2-12.0 [facility] No Panel InformationOrdered By: Millie Massey on 08-26-2024 30 U/L <32 [facility] Platelet countOrdered By: Carter Massey on 08-26-2024 Platelets (Bld) [#/Vol] 260 10*3/uL 150-450 [facility] Platelet count 260 K/mm3 150-450 [facility] Potassium (Unsp spec) [Mass/ Vol]Ordered By: Millie Massey on 08-26-2024 Potassium measurement (mass/volume) 4.9 mmol/L 3.3-5.1 [facility] Potassium measurement (mass/ volume)Ordered By: Millie Massey on 08-26-2024 Potassium (Unsp spec) [Mass/Vol] 4.9 mmol/L 3.3-5.1 [facility] RBC Auto (Bld) [#/Vol]Ordere d By: Millie Massey on 08-26-2024 RBC (Bld) [#/Vol] 2.53 10*6/uL Low 4.2-5.4 [facility] Automated blood erythrocyte count 2.53 M/mm3 Low 4.2-5.4 [facility] Serum creatinine measurement (mass/volume)Ordered By: Millie Massey on 08-26-2024 Creatinine [Mass/Vol] 1.49 mg/dL High 0.70-1.20 [facility] Serum globulin measurementOr dered By: Millie Massey on 08-26-2024 Globulin (S) [Mass/Vol] 3.3 g/dL 2.2-4.2 [facility] Serum globulin measurement 3.3 g/dL 2.2-4.2 [facility] Serum glucose measurement (m ass/volume)Ordered By: Millie Massey on 08-26-2024 Glucose [Mass/Vol] 93 mg/dL 70-99 [facility] Serum or plasma alanine camargo otransferase (ALT) measurementOrdered By: Millie Massey on 08-26-2024 ALT [Catalytic activity/Vol] 10 U/L <35 [facility] Serum or plasma albumin megan urement (mass/volume)Ordered By: Millie Massey on 08-26-2024 Albumin [Mass/Vol] 2.1 g/dL Low 3.4-4.8 [facility] Serum or plasma albumin/glob ulin mass ratioOrdered By: Millie Massey on 08-26-2024 Albumin/Globulin [Mass ratio] 0.6 {ratio} Low 0.9-2.4 [facility] Serum or plasma alkaline susan sphatase measurementOrdered By: Millie Massey on 08-26-2024 ALP [Catalytic activity/Vol] 81 U/L 35-104 [facility] Serum or plasma calcium megan urement (mass/volume)Ordered By: Millie Massey on 08-26-2024 Calcium [Mass/Vol] 8.2 mg/dL 7.6-11.0 [facility] Serum or plasma urea nitroge n measurement (mass/volume)Ordered By: Millie Massey on 08-26-2024 Urea nitrogen [Mass/Vol] 36 mg/dL High 09-14 [facility] Sodium levelOrdered By: Silvana Massey on 08-26-2024 Sodium [Moles/Vol] 131 mmol/L Low 133-145 [facility] Sodium level 131 mmol/L Low 133-145 [facility] Total proteinOrdered By: Lesli Massey on 08-26-2024 Protein [Mass/Vol] 5.4 g/dL Low 5.9-8.4 [facility] Total protein 5.4 g/dL Low 5.9-8.4 [facility] Urea nitrogen [Mass/Vol]Orde red By: Millie Massey on 08-26-2024 Serum or plasma urea nitrogen measurement (mass/volume) 36 mg/dL High 09-14 [facility] White blood cell (WBC) count Ordered By: Millie Massey on 08-26-2024 WBC (Bld) [#/Vol] 4.2 10*3/uL Low 4.4-11.0 [facility] White blood cell (WBC) count 4.2 K/mm3 Low 4.4-11.0 [facility] Anion gap [Moles/Vol]Ordered By: Millie Massey on 08-22-2024 Anion gap in Serum or Plasma 7 5- [facility] Anion gap in Serum or Plasma Ordered By: Millie Massey on 08-22-2024 Anion gap [Moles/Vol] 7 mmol/L 5- [facility] BUN/creatinine ratioOrdered By: Millie Massey on 08-22-2024 Urea nitrogen/Creatinine [Mass ratio] 20.6 mg/mg High - [facility] BUN/creatinine ratio 20.6 RATIO High 10-20 [facility] Basic Metabolic Profile (BMP )on 08-22-2024 BUN/CRE 20.6 RATIO High 10- [facility] Comment on above: Order Comment: 206.1 Performed By: #### L 500.2500 ####[facility] [address] [place], [address] Calcium [Mass/Vol] 7.7 mg/dL Normal 7.6-11.0 [facility] Comment on above: Order Comment: 206.1 Performed By: #### L 500.2500 ####[facility] [address] [place], [address] Chloride [Moles/Vol] 99 mmol/L Normal 98-108 [facility] Comment on above: Order Comment: 206.1 Performed By: #### L 500.2500 ####[facility] [address] [place], [address] CO2 [Moles/Vol] 30.8 mmol/L Normal 21.0-32.0 [facility] Comment on above: Order Comment: .1 Performed By: #### L 500.2500 ####[facility] [address] [place], [address] Creatinine [Mass/Vol] 0.89 mg/dL Normal 0.70-1.20 [facility] Comment on above: Order Comment: .1 Performed By: #### L 500.2500 ####[facility] [address] [place], [address] GAP 7 Normal 5-15 [facility] Comment on above: Order Comment: . Performed By: #### L 500.2500 ####[facility] [address] [place], [address] GFR/1.73 sq M.predicted among non-blacks MDRD (S/P/Bld) [Vol rate/Area] 73 mL/min/{1.73_m2} Normal >60 [facility] Comment on above: Order Comment: 206.1 Result Comment: mL/m in/1.73m2 CKD-EPI Creatinine Equation (2020) Performed By: #### L 500.2500 ####[facility] [address] [place], [address] Glucose [Mass/Vol] 113 mg/dL High 70-99 [facility] Comment on above: Order Comment: 206.1 Performed By: #### L 500.2500 ####[facility] [address] [place], [address] Potassium [Moles/Vol] 3.4 mmol/L Normal 3.3-5.1 [facility] Comment on above: Order Comment: 206.1 Performed By: #### L 500.2500 ####[facility] [address] [place], [address] Sodium [Moles/Vol] 136 mmol/L Normal 133-145 [facility] Comment on above: Order Comment: 206.1 Performed By: #### L 500.2500 ####[facility] [address] [place], [address] Urea nitrogen [Mass/Vol] 18 mg/dL Normal 4-19 [facility] Comment on above: Order Comment: 206.1 Performed By: #### L 500.2500 ####[facility] [address] [place], [address] Calcium [Mass/Vol]Ordered By : Millie Massey on 08-22-2024 Serum or plasma calcium measurement (mass/volume) 7.7 mg/dL 7.6-11.0 [facility] Carbon dioxide, total [Moles /volume] in Central venous bloodOrdered By: Millie Massey on 08-22-2024 CO2 [Moles/Vol] 30.8 mmol/L 21.0-32.0 [facility] Carbon dioxide, total [Moles/volume] in Central venous blood 30.8 mmol/L 21.0-32.0 [facility] Chloride assayOrdered By: Carter Massey on 08-22-2024 Chloride [Moles/Vol] 99 mmol/L 98-108 [facility] Chloride assay 99 mmol/L 98-108 [facility] Creatinine [Mass/Vol]Ordered By: Millie Massey on 08-22-2024 Serum creatinine measurement (mass/volume) 0.89 mg/dL 0.70-1.20 [facility] GFR/1.73 sq M.predicted víctor g non-blacks MDRD (S/P/Bld) [Vol rate/Area]Ordered By: Millie Massey on 08-22-2024 Glomerular filtration rate (GFR) estimation/1.73 sq m using serum, plasma, or whole b 73 >60 [facility] Glomerular filtration rate ( GFR) estimation/1.73 sq m using serum, plasma, or whole bOrdered By: Millie Massey on 08-22-2024 GFR/1.73 sq M.predicted among non-blacks MDRD (S/P/Bld) [Vol rate/Area] 73 mL/min/{1.73_m2} >60 [facility] Glucose [Mass/Vol]Ordered By : Millie Massey on 08-22-2024 Serum glucose measurement (mass/volume) 113 mg/dL High 70-99 [facility] Potassium (Unsp spec) [Mass/ Vol]Ordered By: Millie Massey on 08-22-2024 Potassium measurement (mass/volume) 3.4 mmol/L 3.3-5.1 [facility] Potassium measurement (mass/ volume)Ordered By: Millie Massey on 08-22-2024 Potassium (Unsp spec) [Mass/Vol] 3.4 mmol/L 3.3-5.1 [facility] Serum creatinine measurement (mass/volume)Ordered By: Millie Massey on 08-22-2024 Creatinine [Mass/Vol] 0.89 mg/dL 0.70-1.20 [facility] Serum glucose measurement (m ass/volume)Ordered By: Millie Massey on 08-22-2024 Glucose [Mass/Vol] 113 mg/dL High 70-99 [facility] Serum or plasma calcium megan urement (mass/volume)Ordered By: Millie Massey on 08-22-2024 Calcium [Mass/Vol] 7.7 mg/dL 7.6-11.0 [facility] Serum or plasma urea nitroge n measurement (mass/volume)Ordered By: Millie Massey on 08-22-2024 Urea nitrogen [Mass/Vol] 18 mg/dL 09-14 [facility] Sodium levelOrdered By: Silvana Massey on 08-22-2024 Sodium [Moles/Vol] 136 mmol/L 133-145 [facility] Sodium level 136 mmol/L 133-145 [facility] Urea nitrogen [Mass/Vol]Orde red By: Millie Massey on 08-22-2024 Serum or plasma urea nitrogen measurement (mass/volume) 18 mg/dL 09-14 [facility] Amylase Body Fluidon 025 AMYLASE,BDY FLD 30 U/L Normal . [facility] Comment on above: Order Comment: Test( s) [id number], Body Fluidwas developed and its performance characteristicsdetermined by [employer]. It has not been cleared or approvedby [...] Saliva : : : (Mixed Glands) : [id number] - [id number] : : : : Blaze Penny V. Reference Intervals for Adults and Children 2008. Ninth Edition (V9.1) [employer], [facility]; [place]: November 2008. Performed By: #### L 3800.0400, L3800.0050 ####[facility] [address] [place], [address] Culture, Anaerobic Any Sourc tim 08-20-2024 CUAN No growth in 5 days. Normal [facility] Comment on above: Performed By: #### M 100.4001, L350.1000, L504.0250, L503.0300, L200.0200, L503.0100, M100.2900, M100.2000 ####[facility] [address] [place], [address] pH, Body Fluid [id number] 08-20 PH, BODY FLUID 7.3 Normal Not Estab. [facility] Comment on above: Order Comment: Test( s) [id number], Body Fluidwas developed and its performance characteristicsdetermined by [employer]. It has not been cleared or approvedby the Food and Drug Administration.Specimen Comment: A duplicate report has been generateddue to demographicSpecimen Comment: updates. Result Comment: The reference interval(s) and other method performance specificationshave not been established for this body fluid. The test result must beintegrated into the clinical context for interpretation. Performed By: #### L 3800.0400, L3800.0050 ####[facility] [address] [place], [address] Anion gap [Moles/Vol]Ordered By: Millie Massey on 08-19-2024 Anion gap in Serum or Plasma 7 - [facility] Anion gap in Serum or Plasma Ordered By: Millie Massey on 08-19-2024 Anion gap [Moles/Vol] 7 mmol/L - [facility] BUN/creatinine ratioOrdered By: Millie Massey on 08-19-2024 Urea nitrogen/Creatinine [Mass ratio] 28.6 mg/mg High - [facility] BUN/creatinine ratio 28.6 RATIO High - [facility] Basic Metabolic Profile (BMP )on 08-19-2024 BUN/CRE 28.6 RATIO High 10-20 [facility] Comment on above: Order Comment: 206-1 Performed By: #### L 500.2500, L100.0500, L501.5200 ####[facility] [address] [place], [address] Calcium [Mass/Vol] 8.1 mg/dL Normal 7.6-11.0 [facility] Comment on above: Order Comment: - Performed By: #### L 500.2500, L100.0500, L501.5200 ####[facility] [address] [place], [address] Chloride [Moles/Vol] 100 mmol/L Normal 98-108 [facility] Comment on above: Order Comment: - Performed By: #### L 500.2500, L100.0500, L501.5200 ####[facility] [address] [place], [address] CO2 [Moles/Vol] 23.0 mmol/L Normal 21.0-32.0 [facility] Comment on above: Order Comment: - Performed By: #### L 500.2500, L100.0500, L501.5200 ####[facility] [address] [place], [address] Creatinine [Mass/Vol] 1.34 mg/dL High 0.70-1.20 [facility] Comment on above: Order Comment: -1 Performed By: #### L 500.2500, L100.0500, L501.5200 ####[facility] [address] [place], [address] GAP 7 Normal 5-15 [facility] Comment on above: Order Comment: -1 Performed By: #### L 500.2500, L100.0500, L501.5200 ####[facility] [address] [place], [address] GFR/1.73 sq M.predicted among non-blacks MDRD (S/P/Bld) [Vol rate/Area] 45 mL/min/{1.73_m2} Low >60 [facility] Comment on above: Order Comment: Result Comment: mL/m in/1.73m2 CKD-EPI Creatinine Equation (2020) Performed By: #### L 500.2500, L100.0500, L501.5200 ####[facility] [address] [place], [address] Glucose [Mass/Vol] 89 mg/dL Normal 70-99 [facility] Comment on above: Order Comment: Performed By: #### L 500.2500, L100.0500, L501.5200 ####[facility] [address] [place], [address] Potassium [Moles/Vol] 6.8 mmol/L Invalid Interpretation Code 3.3-5.1 [facility] Comment on above: Order Comment: Result Comment: Hemo lysis present, Results??could be affected.??Critical Result(s) Called at: 0635 by: WALTER KENNEDY TO JACKIE SAUER??Results read back by same. Performed By: #### L 500.2500, L100.0500, L501.5200 ####[facility] [address] [place], [address] Sodium [Moles/Vol] 130 mmol/L Low 133-145 [facility] Comment on above: Order Comment: Performed By: #### L 500.2500, L100.0500, L501.5200 ####[facility] [address] [place], [address] Urea nitrogen [Mass/Vol] 38 mg/dL High 4-19 [facility] Comment on above: Order Comment: Performed By: #### L 500.2500, L100.0500, L501.5200 ####[facility] [address] [place], [address] CBC-Complete Blood Cnt No Di ffon 08-19-2024 Erythrocyte distribution width (RBC) [Ratio] 23.3 % High 11.6-14.6 [facility] Comment on above: Order Comment: - Performed By: #### L 500.2500, L100.0500, L501.5200 ####[facility] [address] [place], [address] Hematocrit (Bld) [Volume fraction] 25.7 % Low 37-47 [facility] Comment on above: Order Comment: - Performed By: #### L 500.2500, L100.0500, L501.5200 ####[facility] [address] [place], [address] Hemoglobin (Bld) [Mass/Vol] 7.8 g/dL Low 12.0-15.0 [facility] Comment on above: Order Comment: Performed By: #### L 500.2500, L100.0500, L501.5200 ####[facility] [address] [place], [address] MCH (RBC) [Entitic mass] 28.4 pg Normal 27.0-32.0 [facility] Comment on above: Order Comment: - Performed By: #### L 500.2500, L100.0500, L501.5200 ####[facility] [address] [place], [address] MCHC (RBC) [Mass/Vol] 30.4 g/dL Low 32-36 [facility] Comment on above: Order Comment: - Performed By: #### L 500.2500, L100.0500, L501.5200 ####[facility] [address] [place], [address] MCV (RBC) [Entitic vol] 93.5 fL Normal 81-99 [facility] Comment on above: Order Comment: - Performed By: #### L 500.2500, L100.0500, L501.5200 ####[facility] [address] [place], [address] Platelet mean volume (Bld) [Entitic vol] 10.2 fL Normal 6.2-12.0 [facility] Comment on above: Order Comment: - Performed By: #### L 500.2500, L100.0500, L501.5200 ####[facility] [address] [place], [address] Platelets (Bld) [#/Vol] 168 10*3/uL Normal 150-450 [facility] Comment on above: Order Comment: - Performed By: #### L 500.2500, L100.0500, L501.5200 ####[facility] [address] [place], [address] RBC (Bld) [#/Vol] 2.75 10*6/uL Low 4.2-5.4 [facility] Comment on above: Order Comment: - Performed By: #### L 500.2500, L100.0500, L501.5200 ####[facility] [address] [place], [address] RDW SD 76.4 fl High 35.1-43.9 [facility] Comment on above: Order Comment: - Performed By: #### L 500.2500, L100.0500, L501.5200 ####[facility] [address] [place], [address] WBC (Bld) [#/Vol] 3.8 10*3/uL Low 4.4-11.0 [facility] Comment on above: Order Comment: - Performed By: #### L 500.2500, L100.0500, L501.5200 ####[facility] [address] [place], [place], [address] Calcium [Mass/Vol]Ordered By : Millie Massey on 08-19-2024 Serum or plasma calcium measurement (mass/volume) 8.1 mg/dL 7.6-11.0 [facility] Carbon dioxide, total [Moles /volume] in Central venous bloodOrdered By: Millie Massey on 08-19-2024 CO2 [Moles/Vol] 23.0 mmol/L 21.0-32.0 [facility] Carbon dioxide, total [Moles/volume] in Central venous blood 23.0 mmol/L 21.0-32.0 [facility] Chloride assayOrdered By: Carter Massey on 08-19-2024 Chloride [Moles/Vol] 100 mmol/L 98-108 [facility] Chloride assay 100 mmol/L 98-108 [facility] Creatinine [Mass/Vol]Ordered By: Millie Massey on 08-19-2024 Serum creatinine measurement (mass/volume) 1.34 mg/dL High 0.70-1.20 [facility] Culture, Blood (WB)on 2024 CUB Blood cultures x2, f rom two different sites No growth in 5 days. Normal [facility] Comment on above: Performed By: #### M 200.1000 ####[facility] [address] [place], [place], [id number] CUB Blood cultures x2, f rom two different sites No growth in 5 days. Normal [facility] Comment on above: Performed By: #### M 200.1000, L503.6005, L501.4021 ####[facility] [address] [place], [place], [address] Erythrocyte distribution wid th (RBC) [Ratio]Ordered By: Millie Massey on 08-19-2024 Erythrocyte distribution width ratio 23.3 % High 11.6-14.6 [facility] Erythrocyte distribution width standard deviation 76.4 fl High 35.1-43.9 [facility] Erythrocyte distribution wid th ratioOrdered By: Millie Massey on 08-19-2024 Erythrocyte distribution width (RBC) [Ratio] 23.3 % High 11.6-14.6 [facility] Erythrocyte distribution wid th standard deviationOrdered By: Millie Massey on 08-19-2024 Erythrocyte distribution width (RBC) [Ratio] 76.4 fl High 35.1-43.9 [facility] GFR/1.73 sq M.predicted víctor g non-blacks MDRD (S/P/Bld) [Vol rate/Area]Ordered By: Millie Massey on 08-19-2024 Glomerular filtration rate (GFR) estimation/1.73 sq m using serum, plasma, or whole b 45 Low >60 [facility] Glomerular filtration rate ( GFR) estimation/1.73 sq m using serum, plasma, or whole bOrdered By: Millie Massey on 08-19-2024 GFR/1.73 sq M.predicted among non-blacks MDRD (S/P/Bld) [Vol rate/Area] 45 mL/min/{1.73_m2} Low >60 [facility] Glucose [Mass/Vol]Ordered By : Millie Massey on 08-19-2024 Serum glucose measurement (mass/volume) 89 mg/dL 70-99 [facility] Hematocrit Auto (Bld) [Volum e fraction]Ordered By: Millie Massey on 08-19-2024 Hematocrit (Bld) [Volume fraction] 25.7 % Low 37-47 [facility] Automated blood hematocrit (percentage) 25.7 % Low 37-47 [facility] Hemoglobin measurementOrdere d By: Millie Massey on 08-19-2024 Hemoglobin (Bld) [Mass/Vol] 7.8 g/dL Low 12.0-15.0 [facility] Hemoglobin measurement 7.8 g/dL Low 12.0-15.0 [facility] MCV (RBC) [Entitic vol]Order ed By: Millie Massey on 08-19-2024 MCV (mean corpuscular volume) determination 93.5 fL 81-99 [facility] MCV (mean corpuscular volume ) determinationOrdered By: Millie Massey on 08-19-2024 MCV (RBC) [Entitic vol] 93.5 fL 81-99 [facility] Magnesiumon 08-19-2024 Magnesium [Mass/Vol] 1.6 mg/dL Normal 1.5-2.2 [facility] Comment on above: Order Comment: Performed By: #### L 500.2500, L100.0500, L501.5200 ####[facility] [address] [place], [address] Magnesium (Unsp spec) [Mass/ Vol]Ordered By: Millie Massey on 08-19-2024 Magnesium measurement (mass/volume) 1.6 mg/dL 1.5-2.2 [facility] Magnesium measurement (mass/ volume)Ordered By: Millie Massey on 08-19-2024 Magnesium (Unsp spec) [Mass/Vol] 1.6 mg/dL 1.5-2.2 [facility] Mean corpuscular hemoglobin (MCH) determinationOrdered By: Millie Massey on 08-19-2024 MCH (RBC) [Entitic mass] 28.4 pg 27.0-32.0 [facility] Mean corpuscular hemoglobin (MCH) determination 28.4 pg 27.0-32.0 [facility] Mean corpuscular hemoglobin concentration (MCHC) determinationOrdered By: Millie Massey on 08-19-2024 Mean corpuscular hemoglobin concentration (MCHC) determination 30.4 g/dL Low 32-36 [facility] Mean platelet volume determi nationOrdered By: Millie Massey on 08-19-2024 Mean platelet volume determination 10.2 fl 6.2-12.0 [facility] Platelet countOrdered By: Carter Massey on 08-19-2024 Platelets (Bld) [#/Vol] 168 10*3/uL 150-450 [facility] Platelet count 168 K/mm3 150-450 [facility] Potassium (Unsp spec) [Mass/ Vol]Ordered By: Millie Massey on 08-19-2024 Potassium measurement (mass/volume) 6.8 mmol/L High 3.3-5.1 [facility] Potassium measurement (mass/ volume)Ordered By: Millie Massey on 08-19-2024 Potassium (Unsp spec) [Mass/Vol] 6.8 mmol/L High 3.3-5.1 [facility] RBC Auto (Bld) [#/Vol]Ordere d By: Millie Massey on 08-19-2024 RBC (Bld) [#/Vol] 2.75 10*6/uL Low 4.2-5.4 [facility] Automated blood erythrocyte count 2.75 M/mm3 Low 4.2-5.4 [facility] Serum creatinine measurement (mass/volume)Ordered By: Millie Massey on 08-19-2024 Creatinine [Mass/Vol] 1.34 mg/dL High 0.70-1.20 [facility] Serum glucose measurement (m ass/volume)Ordered By: Millie Massey on 08-19-2024 Glucose [Mass/Vol] 89 mg/dL 70-99 [facility] Serum or plasma calcium megan urement (mass/volume)Ordered By: Millie Massey on 08-19-2024 Calcium [Mass/Vol] 8.1 mg/dL 7.6-11.0 [facility] Serum or plasma urea nitroge n measurement (mass/volume)Ordered By: Millie Massey on 08-19-2024 Urea nitrogen [Mass/Vol] 38 mg/dL High - [facility] Sodium levelOrdered By: Silvana Massey on 08-19-2024 Sodium [Moles/Vol] 130 mmol/L Low 133-145 [facility] Sodium level 130 mmol/L Low 133-145 [facility] Urea nitrogen [Mass/Vol]Orde red By: Millie Massey on 08-19-2024 Serum or plasma urea nitrogen measurement (mass/volume) 38 mg/dL High - [facility] White blood cell (WBC) count Ordered By: Millie Massey on 08-19-2024 WBC (Bld) [#/Vol] 3.8 10*3/uL Low 4.4-11.0 [facility] White blood cell (WBC) count 3.8 K/mm3 Low 4.4-11.0 [facility] Body Fluid Culton 08-18-2024 BFC No growth aerobically. Normal [facility] Comment on above: Performed By: #### M 100.4001, L350.1000, L504.0250, L503.0300, L200.0200, L503.0100, M100.2900, M100.2000 ####[facility] [address] [place], [address] Urine Cultureon 08-18-2024 URC Normal [facility] Comment on above: Performed By: #### M 100.2200 ####[facility] [address] [place], [place], [id number] Absolute lymphocyte countOrd ered By: Nikolas Magaña on 08-17-2024 Lymphocytes Auto (Unsp spec) [#/Vol] 0.59 10*3/uL Low 0.83-4.51 [facility] Absolute neutrophil countOrd ered By: Nikolas Magaña on 08-17-2024 Absolute neutrophil count 3.2 X10^3/uL 2.0-7.7 [facility] Anion gap [Moles/Vol]Ordered By: Nikolas Magaña on 08-17-2024 Anion gap in Serum or Plasma 12 5-15 [facility] Anion gap in Serum or Plasma Ordered By: Nikolas Magaña on 08-17-2024 Anion gap [Moles/Vol] 12 mmol/L - [facility] Automated lymphocyte count a s percentage of total leukocytesOrdered By: Nikolas Magaña on 08-17-2024 Lymphocytes/100 WBC Auto (Unsp spec) 13.4 % Low 19-41 [facility] BUN/creatinine ratioOrdered By: Nikolas Magaña on 08-17-2024 Urea nitrogen/Creatinine [Mass ratio] 20.8 mg/mg High 10-20 [facility] BUN/creatinine ratio 20.8 RATIO High 10-20 [facility] Basic Metabolic Profile (BMP )on 08-17-2024 BUN/CRE 20.8 RATIO High 10-20 [facility] Comment on above: Performed By: #### L 100.0100, L500.2500 ####[facility] [address] [place], [address] Calcium [Mass/Vol] 8.2 mg/dL Normal 7.6-11.0 [facility] Comment on above: Performed By: #### L 100.0100, L500.2500 ####[facility] [address] [place], [address] Chloride [Moles/Vol] 101 mmol/L Normal 98-108 [facility] Comment on above: Performed By: #### L 100.0100, L500.2500 ####[facility] [address] [place], [address] CO2 [Moles/Vol] 19.8 mmol/L Low 21.0-32.0 [facility] Comment on above: Performed By: #### L 100.0100, L500.2500 ####[facility] [address] [place], [address] Creatinine [Mass/Vol] 1.07 mg/dL Normal 0.70-1.20 [facility] Comment on above: Performed By: #### L 100.0100, L500.2500 ####[facility] [address] [place], [address] ECRCL 42.17 ml/min Low 50-250 [facility] Comment on above: Performed By: #### L 100.0100, L500.2500 ####[facility] [address] [place], [address] GAP 12 Normal 5-15 [facility] Comment on above: Performed By: #### L 100.0100, L500.2500 ####[facility] [address] [place], [address] GFR/1.73 sq M.predicted among non-blacks MDRD (S/P/Bld) [Vol rate/Area] 59 mL/min/{1.73_m2} Low >60 [facility] Comment on above: Result Comment: mL/m in/1.73m2 CKD-EPI Creatinine Equation (2020) Performed By: #### L 100.0100, L500.2500 ####[facility] [address], [address] Glucose [Mass/Vol] 83 mg/dL Normal 70-99 [facility] Comment on above: Performed By: #### L 100.0100, L500.2500 ####[facility] [address] [place], [address] Potassium [Moles/Vol] 4.7 mmol/L Normal 3.3-5.1 [facility] Comment on above: Result Comment: Hemo lysis present, Results??could be affected.?? Performed By: #### L 100.0100, L500.2500 ####[facility] [address] [place], [address] Sodium [Moles/Vol] 133 mmol/L Normal 133-145 [facility] Comment on above: Performed By: #### L 100.0100, L500.2500 ####[facility] [address] [place], [address] Urea nitrogen [Mass/Vol] 22 mg/dL High 4-19 [facility] Comment on above: Performed By: #### L 100.0100, L500.2500 ####[facility] [address] [place], [address] Basophil percentageOrdered B y: Nikolas Magaña on 08-17-2024 Basophils/100 WBC (Bld) 0.9 % 0-1 [facility] Basophil percentage 0.9 % 0-1 [facility] Blood polychromasia detectio n by light microscopyOrdered By: Nikolas Magaña on 08-17-2024 Polychromasia LM Ql (Bld) 2+ [facility] CBC W/Diff, Automatedon 07-28 OVALOCYTE 1+ Normal [facility] Comment on above: Performed By: #### L 100.0100, L500.2500 ####[facility] [address] [place], [address] Anisocytosis Ql (Bld) 1+ Normal [facility] Comment on above: Performed By: #### L 100.0100, L500.2500 ####[facility] [address] [place], [address] POLYCHROMASIA 2+ Normal [facility] Comment on above: Performed By: #### L 100.0100, L500.2500 ####[facility] [address] [place], [address] Calcium [Mass/Vol]Ordered By : Nikolas Magaña on 08-17-2024 Serum or plasma calcium measurement (mass/volume) 8.2 mg/dL 7.6-11.0 [facility] Carbon dioxide, total [Moles /volume] in Central venous bloodOrdered By: Nikolas Magaña on 08-17-2024 CO2 [Moles/Vol] 19.8 mmol/L Low 21.0-32.0 [facility] Carbon dioxide, total [Moles/volume] in Central venous blood 19.8 mmol/L Low 21.0-32.0 [facility] Chloride assayOrdered By: Oscar Magaña on 08-17-2024 Chloride [Moles/Vol] 101 mmol/L 98-108 [facility] Chloride assay 101 mmol/L 98-108 [facility] Creatinine [Mass/Vol]Ordered By: Nikolas Magaña on 08-17-2024 Serum creatinine measurement (mass/volume) 1.07 mg/dL 0.70-1.20 [facility] Eosinophil percentageOrdered By: Nikolas Magaña on 08-17-2024 Eosinophils/100 WBC (Bld) 3.4 % 0-5 [facility] Eosinophil percentage 3.4 % 0-5 [facility] Erythrocyte distribution wid th (RBC) [Ratio]Ordered By: Nikolas Magaña on 08-17-2024 Erythrocyte distribution width ratio 23.1 % High 11.6-14.6 [facility] Erythrocyte distribution wid th ratioOrdered By: Nikolas Magaña on 08-17-2024 Erythrocyte distribution width (RBC) [Ratio] 23.1 % High 11.6-14.6 [facility] Erythrocyte distribution wid th standard deviationOrdered By: Nikolas Magaña on 08-17-2024 Erythrocyte distribution width (RBC) [Ratio] 74.1 fl High 35.1-43.9 [facility] Erythrocyte distribution width standard deviation 74.1 fl High 35.1-43.9 [facility] Estimation of creatinine austen aranceOrdered By: Nikolas Magaña on 08-17-2024 Estimation of creatinine clearance 42.17 ml/min Low 50-250 [facility] GFR/1.73 sq M.predicted víctor g non-blacks MDRD (S/P/Bld) [Vol rate/Area]Ordered By: Nikolas Magaña on 08-17-2024 Glomerular filtration rate (GFR) estimation/1.73 sq m using serum, plasma, or whole b 59 Low >60 [facility] Glomerular filtration rate ( GFR) estimation/1.73 sq m using serum, plasma, or whole bOrdered By: Nikolas Magaña on 08-17-2024 GFR/1.73 sq M.predicted among non-blacks MDRD (S/P/Bld) [Vol rate/Area] 59 mL/min/{1.73_m2} Low >60 [facility] Glucoseon 08-17-2024 Glucose [Mass/Vol] 73 mg/dL Normal 70-99 [facility] Comment on above: Performed By: #### L 501.0100 ####[facility] [address] [place], [address] Glucose [Mass/Vol]Ordered By : Nikolas Magaña on 08-17-2024 Serum glucose measurement (mass/volume) 83 mg/dL 70-99 [facility] Hematocrit Auto (Bld) [Volum e fraction]Ordered By: Nikolas Magaña on 08-17-2024 Hematocrit (Bld) [Volume fraction] 34.6 % Low 37-47 [facility] Automated blood hematocrit (percentage) 34.6 % Low 37-47 [facility] Hemoglobin measurementOrdere d By: Nikolas Magaña on 08-17-2024 Hemoglobin (Bld) [Mass/Vol] 10.5 g/dL Low 12.0-15.0 [facility] Hemoglobin measurement 10.5 g/dL Low 12.0-15.0 [facility] Immature granulocytes/100 WB C Auto (Bld)Ordered By: Nikolas Magaña on 08-17-2024 Immature granulocytes/100 WBC (Bld) 1.800 % High 0.0-0.9 [facility] Automated immature granulocyte percentage 1.800 % High 0.0-0.9 [facility] Lymphocytes Auto (Unsp spec) [#/Vol]Ordered By: Nikolas Magaña on 08-17-2024 Absolute lymphocyte count 0.59 X10^3/uL Low 0.83-4.51 [facility] Lymphocytes/100 WBC Auto (Un sp spec)Ordered By: Nikolas Magaña on 08-17-2024 Automated lymphocyte count as percentage of total leukocytes 13.4 % Low 19-41 [facility] MCV (RBC) [Entitic vol]Order ed By: Nikolas Magaña on 08-17-2024 MCV (mean corpuscular volume) determination 93.5 fL 81-99 [facility] MCV (mean corpuscular volume ) determinationOrdered By: Nikolas Magaña on 08-17-2024 MCV (RBC) [Entitic vol] 93.5 fL 81-99 [facility] Mean corpuscular hemoglobin (MCH) determinationOrdered By: Nikolas Magaña on 08-17-2024 MCH (RBC) [Entitic mass] 28.4 pg 27.0-32.0 [facility] Mean corpuscular hemoglobin (MCH) determination 28.4 pg 27.0-32.0 [facility] Mean corpuscular hemoglobin concentration (MCHC) determinationOrdered By: Nikolas Magaña on 08-17-2024 Mean corpuscular hemoglobin concentration (MCHC) determination 30.3 g/dL Low 32-36 [facility] Mean platelet volume determi nationOrdered By: Nikolas Magaña on 08-17-2024 Mean platelet volume determination 9.2 fl 6.2-12.0 [facility] Monocyte percentageOrdered B y: Nikolas Magaña on 08-17-2024 Monocytes/100 WBC (Bld) 7.0 % 0-10 [facility] Monocyte percentage 7.0 % 0-10 [facility] Neutrophil percentageOrdered By: Nikolas Magaña on 08-17-2024 Neutrophils/100 WBC (Bld) 73.5 % High 47-70 [facility] Neutrophil percentage 73.5 % High 47-70 [facility] Nucleated red blood cell per centageOrdered By: Nikolas Magaña on 08-17-2024 Nucleated red blood cell percentage 0 % 0-5 [facility] Ovalocyte detectionOrdered B y: Nikolas Magaña on 08-17-2024 Ovalocytes LM Ql (Bld) 1+ [facility] Ovalocyte detection 1+ [facility] Platelet countOrdered By: Oscar Magaña on 08-17-2024 Platelets (Bld) [#/Vol] 146 10*3/uL Low 150-450 [facility] Platelet count 146 K/mm3 Low 150-450 [facility] Polychromasia LM Ql (Bld)Ord ered By: Nikolas Magaña on 08-17-2024 Blood polychromasia detection by light microscopy 2+ [facility] Potassium (Unsp spec) [Mass/ Vol]Ordered By: Nikolas Magaña on 08-17-2024 Potassium measurement (mass/volume) 4.7 mmol/L 3.3-5.1 [facility] Potassium measurement (mass/ volume)Ordered By: Nikolas Magaña on 08-17-2024 Potassium (Unsp spec) [Mass/Vol] 4.7 mmol/L 3.3-5.1 [facility] RBC Auto (Bld) [#/Vol]Ordere d By: Nikolas Magaña on 08-17-2024 RBC (Bld) [#/Vol] 3.70 10*6/uL Low 4.2-5.4 [facility] Automated blood erythrocyte count 3.70 M/mm3 Low 4.2-5.4 [facility] Serum creatinine measurement (mass/volume)Ordered By: Nikolas Magaña on 08-17-2024 Creatinine [Mass/Vol] 1.07 mg/dL 0.70-1.20 [facility] Serum glucose measurement (m ass/volume)Ordered By: Nikolas Magaña on 08-17-2024 Glucose [Mass/Vol] 83 mg/dL 70-99 [facility] Serum or plasma calcium megan urement (mass/volume)Ordered By: Nikolas Magaña on 08-17-2024 Calcium [Mass/Vol] 8.2 mg/dL 7.6-11.0 [facility] Serum or plasma urea nitroge n measurement (mass/volume)Ordered By: Nikolas Magaña on 08-17-2024 Urea nitrogen [Mass/Vol] 22 mg/dL High 09-14 [facility] Sodium levelOrdered By: Hemanth Magaña on 08-17-2024 Sodium [Moles/Vol] 133 mmol/L 133-145 [facility] Sodium level 133 mmol/L 133-145 [facility] Urea nitrogen [Mass/Vol]Orde red By: Nikolas Magaña on 08-17-2024 Serum or plasma urea nitrogen measurement (mass/volume) 22 mg/dL High 09-14 [facility] Venous duplex ultrasound rep ortOrdered By: Saul Silva on 08-17-2024 US Vein [facility] Other Phone: White blood cell (WBC) count Ordered By: Nikolas Magaña on 08-17-2024 WBC (Bld) [#/Vol] 4.4 10*3/uL 4.4-11.0 [facility] White blood cell (WBC) count 4.4 K/mm3 4.4-11.0 [facility] Basic Metabolic Profile (BMP )on 08-16-2024 BUN/CRE 25.9 RATIO High 10-20 [facility] Comment on above: Performed By: #### L 500.2500, L100.0100 ####[facility] [address] [place], [address] Calcium [Mass/Vol] 8.0 mg/dL Normal 7.6-11.0 [facility] Comment on above: Performed By: #### L 500.2500, L100.0100 ####[facility] [address] [place], [address] Chloride [Moles/Vol] 102 mmol/L Normal 98-108 [facility] Comment on above: Performed By: #### L 500.2500, L100.0100 ####[facility] [address] [place], [address] CO2 [Moles/Vol] 20.8 mmol/L Low 21.0-32.0 [facility] Comment on above: Performed By: #### L 500.2500, L100.0100 ####[facility] [address] [place], [address] Creatinine [Mass/Vol] 1.27 mg/dL High 0.70-1.20 [facility] Comment on above: Performed By: #### L 500.2500, L100.0100 ####[facility] [address] [place], [address] ECRCL 38.36 ml/min Low 50-250 [facility] Comment on above: Performed By: #### L 500.2500, L100.0100 ####[facility] [address] [place], [address] GAP 10 Normal 5-15 [facility] Comment on above: Performed By: #### L 500.2500, L100.0100 ####[facility] [address] [place], [address] GFR/1.73 sq M.predicted among non-blacks MDRD (S/P/Bld) [Vol rate/Area] 48 mL/min/{1.73_m2} Low >60 [facility] Comment on above: Result Comment: mL/m in/1.73m2 CKD-EPI Creatinine Equation (2020) Performed By: #### L 500.2500, L100.0100 ####[facility] [address] [place], [address] Glucose [Mass/Vol] 89 mg/dL Normal 70-99 [facility] Comment on above: Performed By: #### L 500.2500, L100.0100 ####[facility] [address] [place], [address] Potassium [Moles/Vol] 5.0 mmol/L Normal 3.3-5.1 [facility] Comment on above: Performed By: #### L 500.2500, L100.0100 ####[facility] [address] [place], [address] Sodium [Moles/Vol] 132 mmol/L Low 133-145 [facility] Comment on above: Performed By: #### L 500.2500, L100.0100 ####[facility] [address] [place], [address] Urea nitrogen [Mass/Vol] 33 mg/dL High 4-19 [facility] Comment on above: Performed By: #### L 500.2500, L100.0100 ####[facility] [address] [place], [address] Bedside Glucoseon 08-16-2024 FINGERSTICK GLU 24 mg/dL Invalid Interpretation Code 74-106 [facility] Comment on above: Result Comment: Dr George mathis FollowedMANAGEMENT OF PATIENT CARE PER NURSING PROTOCOL Performed By: #### L 501.080 ####[facility] [address] [place], [address] FINGERSTICK GLU 57 mg/dL Low 74-106 [facility] Comment on above: Result Comment: LUIZA GEMENT OF PATIENT CARE PER NURSING PROTOCOL Performed By: #### L 501.080 ####[facility] [address] [place], [address] FINGERSTICK GLU 80 mg/dL Normal 74-106 [facility] Comment on above: Result Comment: LUIZA GEMENT OF PATIENT CARE PER NURSING PROTOCOL Performed By: #### L 501.080 ####[facility] [address] [place], [address] CBC W/Diff, Automatedon - Anisocytosis Ql (Bld) 1+ Normal [facility] Comment on above: Performed By: #### L 500.2500, L100.0100 ####[facility] [address] [place], [address] PLT EST A Normal [facility] Comment on above: Performed By: #### L 500.2500, L100.0100 ####[facility] [address] [place], [address] POLYCHROMASIA 1+ Normal [facility] Comment on above: Performed By: #### L 500.2500, L100.0100 ####[facility] [address] [place], [address] Glucoseon 08-16-2024 Glucose [Mass/Vol] 91 mg/dL Normal 70-99 [facility] Comment on above: Performed By: #### L 501.0100 ####[facility] [address] [place], [address] Glucose [Mass/Vol] 109 mg/dL High 70-99 [facility] Comment on above: Performed By: #### L 501.0100 ####[facility] [address] [place], [address] [facility] deOrdered By: Nikolas Magaña on 08-16-2024 Glucose [Mass/Vol] 24 mg/dL Low 74-106 [facility] Glucose measurement at bedside 24 mg/dL Low 74-106 [facility] Platelet estimateOrdered By: Nikolas Magaña on 08-16-2024 Platelets LM Ql (Bld) A [facility] Platelets LM Ql (Bld)Ordered By: Nikolas Magaña on 08-16-2024 Platelet estimate A [facility] Amylase (Body fld) [Catalyti c activity/Vol]Ordered By: Nikolas Magaña on 08-15-2024 Amylase body fluid 30 U/L . [facility] Amylase body fluidOrdered By : Nikolas Magaña on 08-15-2024 Amylase (Body fld) [Catalytic activity/Vol] 30 U/L . [facility] Anaerobic cultureOrdered By: Nikolas Magaña on 08-15-2024 Bacteria identified Anaer cx Nom (Unsp spec) No growth in 5 days. [facility] Appearance (Body fld)Ordered By: Nikolas Magaña on 08-15-2024 Body fluid appearance (nominal result) CLEAR [facility] Bacteria identified Anaer cx Nom (Unsp spec)Ordered By: Nikolas Magaña on 08-15-2024 Anaerobic culture No growth in 5 days. [facility] Bedside Glucoseon 08-15-2024 FINGERSTICK GLU 82 mg/dL Normal 74-106 [facility] Comment on above: Result Comment: LUIZA GEMENT OF PATIENT CARE PER NURSING PROTOCOL Performed By: #### L 501.080 ####[facility] [address] [facility] [address] FINGERSTICK GLU 92 mg/dL Normal 74-106 [facility] Comment on above: Result Comment: LUIZA GEMENT OF PATIENT CARE PER NURSING PROTOCOL Performed By: #### L 501.080 ####[facility] [address] [facility] [address] FINGERSTICK GLU 90 mg/dL Normal 74-106 [facility] Comment on above: Result Comment: LUIZA GEMENT OF PATIENT CARE PER NURSING PROTOCOL Performed By: #### L 501.080 ####[facility] [address] [facility] [address] FINGERSTICK GLU 70 mg/dL Low 74-106 [facility] Comment on above: Result Comment: LUIZA GEMENT OF PATIENT CARE PER NURSING PROTOCOL Performed By: #### L 501.080 ####[facility] [address] [facility] [address] FINGERSTICK GLU 104 mg/dL Normal 74-106 [facility] Comment on above: Result Comment: LUIZA GEMENT OF PATIENT CARE PER NURSING PROTOCOL Performed By: #### L 501.080 ####[facility] [address] [place], [address] Body Fluid Cell Count+Diffon 08-15-2024 Lymphocytes (Bld) [#/Vol] 32 10*3/uL Normal [facility] Comment on above: Order Comment: The r eference interval(s) and other method performancespecifications are unavailable for this body fluid.Comparison of the result with concentration in the blood,serum, or plasma is recommended. Performed By: #### M 100.4001, L350.1000, L504.0250, L503.0300, L200.0200, L503.0100, M100.2900, M100.1999 ####[facility] [address] [place], [address] MESOTHELIAL 4 Normal [facility] Comment on above: Order Comment: The r eference interval(s) and other method performancespecifications are unavailable for this body fluid.Comparison of the result with concentration in the blood,serum, or plasma is recommended. Performed By: #### M 100.4001, L350.1000, L504.0250, L503.0300, L200.0200, L503.0100, M100.2900, M100.1999 ####[facility] [address] [place], [address] MONO/BF 60 Normal [facility] Comment on above: Order Comment: The r eference interval(s) and other method performancespecifications are unavailable for this body fluid.Comparison of the result with concentration in the blood,serum, or plasma is recommended. Performed By: #### M 100.4001, L350.1000, L504.0250, L503.0300, L200.0200, L503.0100, M100.2900, M100.1999 ####[facility] [address] [place], [address] PMN 4 Normal [facility] Comment on above: Order Comment: The r eference interval(s) and other method performancespecifications are unavailable for this body fluid.Comparison of the result with concentration in the blood,serum, or plasma is recommended. Performed By: #### M 100.4001, L350.1000, L504.0250, L503.0300, L200.0200, L503.0100, M100.2900, M100.2000 ####[facility] [address] [place], [address] Body fluid appearance (nomin al result)Ordered By: Nikolas Magaña on 08-15-2024 Appearance (Body fld) CLEAR [facility] Body fluid color determinati onOrdered By: Nikolas Magaña on 08-15-2024 Color (Body fld) LT YEL [facility] Body fluid cultureOrdered By : Nikolas Magaña on 08-15-2024 Body fluid culture No growth aerobically. [facility] Body fluid lactate dehydroge nase measurement (enzymatic activity/volume) by pyruvateOrdered By: Nikolas Magaña on 08-15-2024 LDH Pyruvate to lactate reaction (Body fld) [Catalytic activity/Vol] 51 Units/L Not Establ. [facility] Body fluid leukocytes count (number/volume)Ordered By: Nikolas Magaña on 08-15-2024 WBC (Body fld) [#/Vol] 0.023 10*3/uL [facility] Body fluid lymphocytes/100 l eukocytesOrdered By: Nikolas Magaña on 08-15-2024 Lymphocytes/100 WBC (Body fld) 32 % [facility] Body fluid mesothelial cell percentageOrdered By: Nikolas Magaña on 08-15-2024 Mesothelial cells/100 WBC (Body fld) 4 % [facility] Body fluid mononuclear cell countOrdered By: Nikolas Magaña on 08-15-2024 Body fluid mononuclear cell count 0.021 10^3/uL [facility] Body fluid mononuclear cell percentageOrdered By: Nikolas Magaña on 08-15-2024 Mononuclear cells/100 WBC (Body fld) 91.3 % [facility] Body fluid pHOrdered By: Myke Magaña on 08-15-2024 pH (Body fld) 7.3 [pH] Not Estab. [facility] Body fluid polymorphonuclear leukocyte countOrdered By: Nikolas Magaña on 08-15-2024 Body fluid polymorphonuclear leukocyte count 0.002 10^3/uL [facility] Body fluid protein measureme nt (mass/volume)Ordered By: Nikolas Magaña on 08-15-2024 Protein (Body fld) [Mass/Vol] 1.9 g/dL Not Establ. [facility] Body fluid segmented neutrop hils count (number/volume)Ordered By: Nikolas Magaña on 08-15-2024 Segmented neutrophils (Body fld) [#/Vol] 4 % [facility] Body fluid segmented neutrophils count (number/volume) 4 % [facility] Body fluid total cell countO rdered By: Nikolas Magaña on 08-15-2024 Cells Counted Total (Body fld) [#] 0.024 10^3/ul High 0.000-0.00 0 [facility] CBC W/Diff, Automatedon 07-28 Anisocytosis Ql (Bld) 1+ Normal [facility] Comment on above: Performed By: #### L 500.4100, L501.9520, L503.7505, L100.0100 ####[facility] [address] [place], [place], [id number] Calculated very low density lipoprotein (VLDL) cholesterol measurementOrdered By: Nikolas Magaña on 08-15-2024 Calculated very low density lipoprotein (VLDL) cholesterol measurement 14 mg/dL -40 [facility] Calculated very low density lipoprotein (VLDL) cholesterol measurement 14 mg/dL -40 [facility] Cells Counted Total (Body fl d) [#]Ordered By: Nikolas Magaña on 08-15-2024 Body fluid total cell count 0.024 10^3/ul High 0.000-0.00 0 [facility] Chest Insp/Exp 2 Viewon 07-28 Chest Insp/Exp 2 View Normal [facility] Cholesterol [Mass/Vol]Ordere d By: Nikolas Magaña on 08-15-2024 Serum or plasma cholesterol measurement (mass/volume) 62 mg/dL <201 [facility] Cholesterol in HDL [Mass/Vol ]Ordered By: Nikolas Magaña on 08-15-2024 Serum or plasma cholesterol in HDL measurement (mass/volume) 25 mg/dL Low >40 [facility] Color (Body fld)Ordered By: Nikolas Magaña on 08-15-2024 Body fluid color determination LT YEL [facility] Consultation - Nephrologyon 08-15-2024 Consultation - Nephrology Normal [facility] Cytology report Cyto stain D oc (Body fld)Ordered By: Nikolas Magaña on 08-15-2024 Cytology report of Body fluid Cyto stain SEE PATHOLOGY REPORT [facility] er [facility] Cytology report of Body flui d Cyto stainOrdered By: Nikolas Magaña on 08-15-2024 Cytology report Cyto stain Doc (Body fld) SEE PATHOLOGY REPORT [facility] Cytology, Body Fluid / CSFon 08-15-2024 CYTOLOGY,BF/CSF SEE PATHOLOGY REPORT Normal [facility] Comment on above: Result Comment: Spec imen submitted to Anatomical Pathology Department fortesting. Performed By: #### M 100.4001, L350.1000, L504.0250, L503.0300, L200.0200, L503.0100, M100.2900, M100.1999 ####[facility] [address] [place], [place], [id number] Echocardiogram study reportO rdered By: Tevin Nicholas on 08-15-2024 Study report [facility] Work Phone: Glucose, Body Fluidon 2024 GLUC, BODY FLD 111 mg/dL Normal Not Establ. [facility] Comment on above: Performed By: #### M 100.4001, L350.1000, L504.0250, L503.0300, L200.0200, L503.0100, M100.2900, M100.1999 ####[facility] [address] [place], [place], [id number] Glucose, body fluidOrdered B y: Nikolas Magaña on 08-15-2024 Glucose, body fluid 111 mg/dL Not Establ. [facility] Gram Stainon 08-15-2024 GS Centrifuged Specimen ? Culture performed on centrifuged specimen Gram Stain Rare White Blood Cells No organisms seen Normal [facility] Comment on above: Performed By: #### M 100.4001, L350.1000, L504.0250, L503.0300, L200.0200, L503.0100, M100.2900, M100.1999 ####[facility] [address] [place], [address] Gram stainOrdered By: Robb Magaña on 08-15-2024 Microscopic observation Gram stain Nom (Unsp spec) [facility] L503.7505on 08-15-2024 Natriuretic peptide B (Bld) [Mass/Vol] 85184 pg/mL High <=900 [facility] Comment on above: Result Comment: Hear t Failure Unlikely: < 300 pg/mLHeart Failure Likely< 50 Years: > 450 pg/mL50-75 Years: > 900 pg/mL>75 Years: > 1800 pg/mL Performed By: #### L 500.4100, L501.9520, L503.7505, L100.0100 ####[facility] [address] [place], [address] LDH Pyruvate to lactate reac tion (Body fld) [Catalytic activity/Vol]Ordered By: Nikolas Magaña on 08-15-2024 Body fluid lactate dehydrogenase measurement (enzymatic activity/volume) by pyruvate 51 Units/L Not Establ. [facility] LDH,Body Fluidon 08-15-2024 LDH,BF 51 Units/L Normal Not Establ. [facility] Comment on above: Performed By: #### M 100.4001, L350.1000, L504.0250, L503.0300, L200.0200, L503.0100, M100.2900, M100.1999 ####[facility] [address] [place], [address] LDL calc ser/plasOrdered By: Nikolas Magaña on 08-15-2024 Cholesterol in LDL [Mass/Vol] 23 mg/dL [facility] LDL calc ser/plas 23 mg/dL [facility] Lipid Profileon 08-15-2024 CHOL:HDL 2.48 Normal [facility] Comment on above: Performed By: #### L 500.4100, L501.9520, L503.7505, L100.0100 ####[facility] [address] [place], [address] Cholesterol [Mass/Vol] 62 mg/dL Normal <=200 [facility] Comment on above: Result Comment: Chol esterol level, Desirable <200 mg/dLBorderline high cholesterol 200-239 mg/dLHigh cholesterol >=240 mg/dLRecommendations of the NCEP Adult Treatment Panel for thefollowing risk-cutoff thresholds for the [place] Americanpulation. Performed By: #### L 500.4100, L501.9520, L503.7505, L100.0100 ####[facility] [address] [place], [address] Cholesterol in HDL [Mass/Vol] 25 mg/dL Low [facility] Comment on above: Result Comment: Lucila onal Cholesterol Education Program (NCEP) guidelines:<40 mg/dL: Low HDL-cholesterol (major risk factor for CHD)>= 60 mg/dL: High HDL-cholesterol (negative risk factor forCHD)HDL-cholesterol is affected by a number of factors, e.g.smoking, exercise, hormones, sex and age. Performed By: #### L 500.4100, L501.9520, L503.7505, L100.0100 ####[facility] [address] [place], [address] Cholesterol in LDL [Mass/Vol] 23 mg/dL Normal [facility] Comment on above: Result Comment: Bord ppfkfs=443-290 mg/dL Higher Bsld=052 mg/dL or greater Performed By: #### L 500.4100, L501.9520, L503.7505, L100.0100 ####[facility] [address] [place], [address] Cholesterol in VLDL [Mass/Vol] 14 mg/dL Normal 5-40 [facility] Comment on above: Performed By: #### L 500.4100, L501.9520, L503.7505, L100.0100 ####[facility] [address] [place], [address] Triglyceride [Mass/Vol] 71 mg/dL Normal [facility] Comment on above: Result Comment: The drugs N-Acetylcysteine and Metamizole may falselydepress this assay.Normal range: <150 mg/dLBorderline High: 150-199 mg/dLHigh: 200-499 mg/dLVery High: >500 mg/dL Performed By: #### L 500.4100, L501.9520, L503.7505, L100.0100 ####[facility] [address] [place], [address] Lymphocytes/100 WBC (Body fl d)Ordered By: Nikolas Magaña on 08-15-2024 Body fluid lymphocytes/100 leukocytes 32 % [facility] Modified Barium Swallow Stud yon 08-15-2024 Modified Barium Swallow Study Normal [facility] Monocyte detectionOrdered By : Nikolas Magaña on 08-15-2024 Monocytes/100 WBC (Bld) 60 % [facility] Monocyte detection 60 % [facility] Mononuclear cells/100 WBC (B richie fld)Ordered By: Nikolas Magaña on 08-15-2024 Body fluid mononuclear cell percentage 91.3 % [facility] No Panel InformationOrdered By: Nikolas Magaña on 08-15-2024 6 /mm3 [facility] SEE COMMENT [facility] [address] pg/mL High <900 [facility] Operative Reporton Operative Report Normal [facility] Pathologist interpretation ( Body fld) [Interp]Ordered By: Nikolas Magaña on 08-15-2024 Pathologist interpretation of Body fluid tests May follow [facility] Pathologist interpretation o f Body fluid testsOrdered By: Nikolas Magaña on 08-15-2024 Pathologist interpretation (Body fld) [Interp] May follow [facility] Polymorphonuclear (PMN) leuk ocyte countOrdered By: Nikolas Magaña on 08-15-2024 Polymorphonuclear (PMN) leukocyte count 8.7 % [facility] Protein (Body fld) [Mass/Vol ]Ordered By: Nikolas Magaña on 08-15-2024 Body fluid protein measurement (mass/volume) 1.9 g/dL Not Establ. [facility] Protein, Body Fluidon 2024 Protein [Mass/Vol] 1.9 g/dL Normal Not Establ. [facility] Comment on above: Performed By: #### M 100.4001, L350.1000, L504.0250, L503.0300, L200.0200, L503.0100, M100.2900, M100.2000 ####[facility] [address] [place], [place], [id number] Screening total cholesterol/ high density lipoprotein (HDL) cholesterol ratioOrdered By: Nikolas Magaña on 08-15-2024 Screening total cholesterol/high density lipoprotein (HDL) cholesterol ratio 2.48 [facility] Serum or plasma cholesterol in HDL measurement (mass/volume)Ordered By: Nikolas Magaña on 08-15-2024 Cholesterol in HDL [Mass/Vol] 25 mg/dL Low >40 [facility] Serum or plasma cholesterol measurement (mass/volume)Ordered By: Nikolas Magaña on 08-15-2024 Cholesterol [Mass/Vol] 62 mg/dL <201 [facility] Special Stain Group IIon Special Stain Group II Normal [facility] Comment on above: Performed By: #### P SSII ####[facility] [address] [place], [address] Specimen source Nom (Body fl d)Ordered By: Nikolas Magaña on 08-15-2024 Specimen source identification of body fluid THORACENTESIS [facility] Specimen source identificati on of body fluidOrdered By: Nikolas Magaña on 08-15-2024 Specimen source Nom (Body fld) THORACENTESIS [facility] TSH DL <= 0.005 mIU/L QnOrde red By: Nikolas Magaña on 08-15-2024 TSH Qn 10.600 uIU/mL High 0.300-4.20 0 [facility] Serum or plasma thyroid stimulating hormone (TSH) measurement by high sensitivity met 10.600 uIU/mL High 0.300-4.20 0 [facility] Thyroid Stim Hormone (TSH)on 08-15-2024 TSH 10.600 uIU/mL High 0.300-4.20 0 [facility] Comment on above: Performed By: #### L 500.4100, L501.9520, L503.7505, L100.0100 ####[facility] [address] [place], [address] Triglycerides measurementOrd ered By: Nikolas Magaña on 08-15-2024 Triglycerides measurement 71 mg/dL <199 [facility] WBC (Body fld) [#/Vol]Ordere d By: Nikolas Magaña on 08-15-2024 Body fluid leukocytes count (number/volume) 0.023 10^3/uL [facility] pH (Body fld)Ordered By: Myke Magaña on 08-15-2024 Body fluid pH 7.3 Not Estab. [facility] 12 Lead EKGon 08-14-2024 12 Lead EKG Normal [facility] ALP [Catalytic activity/Vol] Ordered By: Ciaran Rodrigez on 08-14-2024 Serum or plasma alkaline phosphatase measurement 71 U/L 35-104 [facility] ALT [Catalytic activity/Vol] Ordered By: Ciaran Rodrigez on 08-14-2024 Serum or plasma alanine aminotransferase (ALT) measurement 9 U/L <35 [facility] Absolute neutrophil countOrd ered By: Ciaran Rodrigez on 08-14-2024 Absolute neutrophil count 7.1 X10^3/uL 2.0-7.7 [facility] Activated partial thrombopla stin time (aPTT) in platelet poor plasma by coagulation aOrdered By: Ciaran Rodrigez on 08-14-2024 aPTT Coag (PPP) [Time] 33.6 s 24.1-36.2 [facility] Albumin [Mass/Vol]Ordered By : Ciaran Rodrigez on 08-14-2024 Serum or plasma albumin measurement (mass/volume) 2.0 g/dL Low 3.4-4.8 [facility] Albumin/Globulin [Mass ratio ]Ordered By: Ciaran Rodrigez on 08-14-2024 Serum or plasma albumin/globulin mass ratio 0.6 RATIO Low 0.9-2.4 [facility] Anion gap [Moles/Vol]Ordered By: Ciaran Rodrigez on 08-14-2024 Anion gap in Serum or Plasma 9 5- [facility] Anion gap [Moles/Vol]Ordered By: Millie Massey on 08-14-2024 Anion gap in Serum or Plasma 7 5- [facility] Anion gap in Serum or Plasma Ordered By: Millie Massey on 08-14-2024 Anion gap [Moles/Vol] 7 mmol/L - [facility] Arterial patency Wrist arter y --pre arterial punctureOrdered By: Ciaran Walsh on 08-14-2024 Assessment of wrist artery patency prior to arterial puncture Positive [facility] Assessment of wrist artery p atency prior to arterial punctureOrdered By: Ciaran Rodrigez on 08-14-2024 Arterial patency Wrist artery --pre arterial puncture Positive [facility] BUN/creatinine ratioOrdered By: Ciaran Rodrigez on 08-14-2024 BUN/creatinine ratio 29.1 RATIO High 10 [facility] BUN/creatinine ratioOrdered By: Millie Massey on 08-14-2024 Urea nitrogen/Creatinine [Mass ratio] 28.9 mg/mg High 10- [facility] BUN/creatinine ratio 28.9 RATIO High 10- [facility] Base excess Calc (BldV) [Mol es/Vol]Ordered By: Ciaran Rodrigez on 08-14-2024 Blood base excess determination -3 mmol/L Low -2-2 [facility] Basic Metabolic Profile (BMP )on 08-14-2024 BUN/CRE 28.9 RATIO High 10 [facility] Comment on above: Order Comment: 206 Performed By: #### L 500.4100, L100.4500, L506.1001, L500.2500, L501.9520, L100.0500, L501.5200, L503.0106 ####[facility] [address] [place], [address] Calcium [Mass/Vol] 7.8 mg/dL Normal 7.6-11.0 [facility] Comment on above: Order Comment: 206 Performed By: #### L 500.4100, L100.4500, L506.1001, L500.2500, L501.9520, L100.0500, L501.5200, L503.0106 ####[facility] [address] [place], [address] Chloride [Moles/Vol] 105 mmol/L Normal 98-108 [facility] Comment on above: Order Comment: 206 Performed By: #### L 500.4100, L100.4500, L506.1001, L500.2500, L501.9520, L100.0500, L501.5200, L503.0106 ####[facility] [address] [place], [address] CO2 [Moles/Vol] 19.9 mmol/L Low 21.0-32.0 [facility] Comment on above: Order Comment: 206 Performed By: #### L 500.4100, L100.4500, L506.1001, L500.2500, L501.9520, L100.0500, L501.5200, L503.0106 ####[facility] [address] [place], [address] Creatinine [Mass/Vol] 1.34 mg/dL High 0.70-1.20 [facility] Comment on above: Order Comment: 206 Performed By: #### L 500.4100, L100.4500, L506.1001, L500.2500, L501.9520, L100.0500, L501.5200, L503.0106 ####[facility] [address] [place], [address] GAP 7 Normal 5-15 [facility] Comment on above: Order Comment: 206 Performed By: #### L 500.4100, L100.4500, L506.1001, L500.2500, L501.9520, L100.0500, L501.5200, L503.0106 ####[facility] [address] [place], [address] GFR/1.73 sq M.predicted among non-blacks MDRD (S/P/Bld) [Vol rate/Area] 45 mL/min/{1.73_m2} Low >60 [facility] Comment on above: Order Comment: 206 Result Comment: mL/m in/1.73m2 CKD-EPI Creatinine Equation (2020) Performed By: #### L 500.4100, L100.4500, L506.1001, L500.2500, L501.9520, L100.0500, L501.5200, L503.0106 ####[facility] [address] [place], [address] Glucose [Mass/Vol] 84 mg/dL Normal 70-99 [facility] Comment on above: Order Comment: 206 Performed By: #### L 500.4100, L100.4500, L506.1001, L500.2500, L501.9520, L100.0500, L501.5200, L503.0106 ####[facility] [address] [place], [address] Potassium [Moles/Vol] 5.3 mmol/L High 3.3-5.1 [facility] Comment on above: Order Comment: 206 Result Comment: Hemo lysis present, Results??could be affected.?? Performed By: #### L 500.4100, L100.4500, L506.1001, L500.2500, L501.9520, L100.0500, L501.5200, L503.0106 ####[facility] [address] [place], [address] Sodium [Moles/Vol] 132 mmol/L Low 133-145 [facility] Comment on above: Order Comment: 206 Performed By: #### L 500.4100, L100.4500, L506.1001, L500.2500, L501.9520, L100.0500, L501.5200, L503.0106 ####[facility] [address] [place], [address] Urea nitrogen [Mass/Vol] 39 mg/dL High 4-19 [facility] Comment on above: Order Comment: 206 Performed By: #### L 500.4100, L100.4500, L506.1001, L500.2500, L501.9520, L100.0500, L501.5200, L503.0106 ####[facility] [address] [place], [address] BUN Normal 4-19 [facility] Comment on above: Result Comment: Canc elled via OM: Order cancelled - Patient discharged Performed By: #### L 500.2500, L100.0100 ####[facility] [address] [place], [address] BUN/CRE Normal 10-20 [facility] Comment on above: Result Comment: Canc elled via OM: Order cancelled - Patient discharged Performed By: #### L 500.2500, L100.0100 ####[facility] [address] [place], [address] Calcium Normal 7.6-11.0 [facility] Comment on above: Result Comment: Canc elled via OM: Order cancelled - Patient discharged Performed By: #### L 500.2500, L100.0100 ####[facility] [address] [place], [address] CL Normal 98-108 [facility] Comment on above: Result Comment: Canc elled via OM: Order cancelled - Patient discharged Performed By: #### L 500.2500, L100.0100 ####[facility] [address] [place], [address] CO2 Normal 21.0-32.0 [facility] Comment on above: Result Comment: Canc elled via OM: Order cancelled - Patient discharged Performed By: #### L 500.2500, L100.0100 ####[facility] [address] [place], [address] CREAT,SERUM Normal 0.70-1.20 [facility] Comment on above: Result Comment: Canc elled via OM: Order cancelled - Patient discharged Performed By: #### L 500.2500, L100.0100 ####[facility] [address] [place], [address] eGFR Normal >60 [facility] Comment on above: Result Comment: Canc elled via OM: Order cancelled - Patient discharged Performed By: #### L 500.2500, L100.0100 ####[facility] [address] [place], [address] GAP Normal 5-15 [facility] Comment on above: Result Comment: Canc elled via OM: Order cancelled - Patient discharged Performed By: #### L 500.2500, L100.0100 ####[facility] [address] [place], [address] GLU Normal 70-99 [facility] Comment on above: Result Comment: Canc elled via OM: Order cancelled - Patient discharged Performed By: #### L 500.2500, L100.0100 ####[facility] [address] [place], [address] Potassium Normal 3.3-5.1 [facility] Comment on above: Result Comment: Canc elled via OM: Order cancelled - Patient discharged Performed By: #### L 500.2500, L100.0100 ####[facility] [address] [place], [address] Basic Metabolic Profile (BMP) Normal 133-145 [facility] Comment on above: Result Comment: Canc elled via OM: Order cancelled - Patient discharged Performed By: #### L 500.2500, L100.0100 ####[facility] [address] [place], [address] Basophil percentageOrdered B y: Ciaran Rodrigez on 08-14-2024 Basophil percentage 0.6 % 0-1 [facility] Bedside Glucoseon 08-14-2024 FINGERSTICK GLU 137 mg/dL High 74-106 [facility] Comment on above: Result Comment: LUIZA DIAZ OF PATIENT CARE PER NURSING PROTOCOL Performed By: #### L 501.080 ####[facility] [address] [place], [address] Bilirubin Test strip Ql (U)O rdered By: Ciaran Rodrigez on 08-14-2024 Bilirubin Ql (U) Negative Negative [facility] Bilirubin, totalOrdered By: Ciaransam Rodrigez on 08-14-2024 Bilirubin [Mass/Vol] 0.18 mg/dL 0.00-1.30 [facility] Bilirubin, total 0.18 mg/dL 0.00-1.30 [facility] Blood Gases by CPSon 025 LINDA TEST Positive Normal [facility] Comment on above: Performed By: #### L 9000.0800 ####[facility] [address] [place], [address] Base excess Calc (Bld) [Moles/Vol] -3 mmol/L Low -2 to +2 [facility] Comment on above: Performed By: #### L 9000.0800 ####[facility] [address] [place], [address] Blood Gas Type ART Normal [facility] Comment on above: Performed By: #### L 9000.0800 ####[facility] [address] [place], [address] CO2 [Moles/Vol] 23 mmol/L Normal [facility] Comment on above: Performed By: #### L 9000.0800 ####[facility] [address] [place], [address] FI02 44.0 Normal [facility] Comment on above: Performed By: #### L 9000.0800 ####[facility] [address] [place], [address] HCO3 (Bld) [Moles/Vol] 22.0 mmol/L Normal 22-26 [facility] Comment on above: Performed By: #### L 9000.0800 ####[facility] [address] [place], [address] Mode Not entered Normal [facility] Comment on above: Performed By: #### L 9000.0800 ####[facility] [address] [place], [address] O2 Delivery Dev Cannula Normal [facility] Comment on above: Performed By: #### L 9000.0800 ####[facility] [address] [place], [address] pCO2 39.1 mmHg Normal 35-45 [facility] Comment on above: Performed By: #### L 9000.0800 ####[facility] [address] [place], [address] pH (Bld) 7.36 [pH] Normal 7.35-7.45 [facility] Comment on above: Performed By: #### L 9000.0800 ####[facility] [address] [place], [address] PO2 105 mmHG High 75-100 [facility] Comment on above: Performed By: #### L 9000.0800 ####[facility] [address] [place], [address] SITE R Radial Normal [facility] Comment on above: Performed By: #### L 9000.0800 ####[facility] [address] [place], [address] SO2 98 Normal 95-99 [facility] Comment on above: Performed By: #### L 9000.0800 ####[facility] [address] [place], [address] Blood base excess determinat ionOrdered By: Ciaran Rodrigez on 08-14-2024 Base excess Calc (BldV) [Moles/Vol] -3 mmol/L Low -2-2 [facility] Blood bicarbonate measuremen tOrdered By: Ciaran Rodrigez on 08-14-2024 HCO3 (Bld) [Moles/Vol] 22.0 mmol/L [facility] Blood bicarbonate measurement 22.0 mmol/L [facility] Blood cultureOrdered By: Adelfo Rodrigez on 08-14-2024 Bacteria identified Cx Nom (Bld) No growth in 5 days. [facility] Blood culture No growth in 5 days. [facility] Bacteria identified Cx Nom (Bld) No growth in 5 days. [facility] Blood culture No growth in 5 days. [facility] Blood manual differential co mment interpretation (narrative result)Ordered By: Millie Massey on 08-14-2024 Manual differential comment Horace (Bld) [Interp] COMMENT [facility] Blood polychromasia detectio n by light microscopyOrdered By: Ciaran Walsh on 08-14-2024 Blood polychromasia detection by light microscopy RARE [facility] CBC W/Diff, Automatedon 07-27 Anisocytosis Ql (Bld) RARE Normal [facility] Comment on above: Performed By: #### L 500.4050, L100.0100 ####[facility] [address] [place], [address] POLYCHROMASIA RARE Normal [facility] Comment on above: Performed By: #### L 500.4050, L100.0100 ####[facility] [address] [place], [address] Absolute Neut Normal 2.0-7.7 [facility] Comment on above: Result Comment: Canc elled via OM: Order cancelled - Patient discharged Performed By: #### L 500.2500, L100.0100 ####[facility] [address] [place], [address] HCT Normal 37-47 [facility] Comment on above: Result Comment: Canc elled via OM: Order cancelled - Patient discharged Performed By: #### L 500.2500, L100.0100 ####[facility] [address] [place], [address] HGB Normal 12.0-15.0 [facility] Comment on above: Result Comment: Canc elled via OM: Order cancelled - Patient discharged Performed By: #### L 500.2500, L100.0100 ####[facility] [address] [place], [address] MCH Normal 27.0-32.0 [facility] Comment on above: Result Comment: Canc elled via OM: Order cancelled - Patient discharged Performed By: #### L 500.2500, L100.0100 ####[facility] [address] [place], [address] MCHC Normal 32-36 [facility] Comment on above: Result Comment: Canc elled via OM: Order cancelled - Patient discharged Performed By: #### L 500.2500, L100.0100 ####[facility] [address] [place], [address] MCV Normal 81-99 [facility] Comment on above: Result Comment: Canc elled via OM: Order cancelled - Patient discharged Performed By: #### L 500.2500, L100.0100 ####[facility] [address] [place], [address] NEUT% Normal 47-70 [facility] Comment on above: Result Comment: Canc elled via OM: Order cancelled - Patient discharged Performed By: #### L 500.2500, L100.0100 ####[facility] [address] [place], [address] PLT Normal 150-450 [facility] Comment on above: Result Comment: Canc elled via OM: Order cancelled - Patient discharged Performed By: #### L 500.2500, L100.0100 ####[facility] [address] [place], [address] RBC Normal 4.2-5.4 [facility] Comment on above: Result Comment: Canc elled via OM: Order cancelled - Patient discharged Performed By: #### L 500.2500, L100.0100 ####[facility] [address] [place], [address] RDW CV Normal 11.6-14.6 [facility] Comment on above: Result Comment: Canc elled via OM: Order cancelled - Patient discharged Performed By: #### L 500.2500, L100.0100 ####[facility] [address] [place], [address] RDW SD Normal 35.1-43.9 [facility] Comment on above: Result Comment: Canc elled via OM: Order cancelled - Patient discharged Performed By: #### L 500.2500, L100.0100 ####[facility] [address] [place], [address] WBC Normal 4.4-11.0 [facility] Comment on above: Result Comment: Canc elled via OM: Order cancelled - Patient discharged Performed By: #### L 500.2500, L100.0100 ####[facility] [address] [place], [address] CBC-Complete Blood Cnt No Di ffon 08-14-2024 Erythrocyte distribution width (RBC) [Ratio] 21.0 % High 11.6-14.6 [facility] Comment on above: Order Comment: 206 Performed By: #### L 500.4100, L100.4500, L506.1001, L500.2500, L501.9520, L100.0500, L501.5200, L503.0106 ####[facility] [address] [place], [address] Hematocrit (Bld) [Volume fraction] 30.9 % Low 37-47 [facility] Comment on above: Order Comment: 206 Performed By: #### L 500.4100, L100.4500, L506.1001, L500.2500, L501.9520, L100.0500, L501.5200, L503.0106 ####[facility] [address] [place], [address] Hemoglobin (Bld) [Mass/Vol] 9.2 g/dL Low 12.0-15.0 [facility] Comment on above: Order Comment: 206 Performed By: #### L 500.4100, L100.4500, L506.1001, L500.2500, L501.9520, L100.0500, L501.5200, L503.0106 ####[facility] [address] [place], [address] MCH (RBC) [Entitic mass] 27.6 pg Normal 27.0-32.0 [facility] Comment on above: Order Comment: 206 Performed By: #### L 500.4100, L100.4500, L506.1001, L500.2500, L501.9520, L100.0500, L501.5200, L503.0106 ####[facility] [address] [place], [address] MCHC (RBC) [Mass/Vol] 29.8 g/dL Low 32-36 [facility] Comment on above: Order Comment: 206 Performed By: #### L 500.4100, L100.4500, L506.1001, L500.2500, L501.9520, L100.0500, L501.5200, L503.0106 ####[facility] [address] [place], [address] MCV (RBC) [Entitic vol] 92.8 fL Normal 81-99 [facility] Comment on above: Order Comment: 206 Performed By: #### L 500.4100, L100.4500, L506.1001, L500.2500, L501.9520, L100.0500, L501.5200, L503.0106 ####[facility] [address] [place], [address] Platelet mean volume (Bld) [Entitic vol] 10.8 fL Normal 6.2-12.0 [facility] Comment on above: Order Comment: 206 Performed By: #### L 500.4100, L100.4500, L506.1001, L500.2500, L501.9520, L100.0500, L501.5200, L503.0106 ####[facility] [address] [place], [address] Platelets (Bld) [#/Vol] 137 10*3/uL Low 150-450 [facility] Comment on above: Order Comment: 206 Performed By: #### L 500.4100, L100.4500, L506.1001, L500.2500, L501.9520, L100.0500, L501.5200, L503.0106 ####[facility] [address] [place], [address] RBC (Bld) [#/Vol] 3.33 10*6/uL Low 4.2-5.4 [facility] Comment on above: Order Comment: 206 Performed By: #### L 500.4100, L100.4500, L506.1001, L500.2500, L501.9520, L100.0500, L501.5200, L503.0106 ####[facility] [address] [place], [address] RDW SD 69.6 fl High 35.1-43.9 [facility] Comment on above: Order Comment: 206 Performed By: #### L 500.4100, L100.4500, L506.1001, L500.2500, L501.9520, L100.0500, L501.5200, L503.0106 ####[facility] [address] [place], [address] WBC (Bld) [#/Vol] 4.1 10*3/uL Low 4.4-11.0 [facility] Comment on above: Order Comment: 206 Performed By: #### L 500.4100, L100.4500, L506.1001, L500.2500, L501.9520, L100.0500, L501.5200, L503.0106 ####[facility] [address] [facility] [place], [place], [phone] Calcium [Mass/Vol]Ordered By : Ciaran Rodrigez on 08-14-2024 Serum or plasma calcium measurement (mass/volume) 7.8 mg/dL 7.6-11.0 [facility] Calcium [Mass/Vol]Ordered By : Millie Massey on 08-14-2024 Serum or plasma calcium measurement (mass/volume) 7.8 mg/dL 7.6-11.0 [facility] Calcium oxalate crystals LM Ql (Urine sed)Ordered By: Ciaran Rodrigez on 08-14-2024 Calcium oxalate crystals detection in urine sediment by light microscopy 1+ /hpf [facility] Calcium oxalate crystals det ection in urine sediment by light microscopyOrdered By: Ciaran Rodrigez on 08-14-2024 Calcium oxalate crystals LM Ql (Urine sed) 1+ /hpf [facility] Calculated very low density lipoprotein (VLDL) cholesterol measurementOrdered By: Millie Massey on 08-14-2024 Calculated very low density lipoprotein (VLDL) cholesterol measurement 9 mg/dL 5-40 [facility] Calculated very low density lipoprotein (VLDL) cholesterol measurement 9 mg/dL 5-40 [facility] Carbon dioxide, total [Moles /volume] in Central venous bloodOrdered By: Ciaran Rodrigez on 08-14-2024 Carbon dioxide, total [Moles/volume] in Central venous blood 19.2 mmol/L Low 21.0-32.0 [facility] Carbon dioxide, total [Moles /volume] in Central venous bloodOrdered By: Millie Massey on 08-14-2024 CO2 [Moles/Vol] 19.9 mmol/L Low 21.0-32.0 [facility] Carbon dioxide, total [Moles/volume] in Central venous blood 19.9 mmol/L Low 21.0-32.0 [facility] Chest 1 View (Portable)on Chest 1 View (Portable) Normal [facility] Chloride assayOrdered By: Dakota Rodrigez on 08-14-2024 Chloride assay 104 mmol/L 98-108 [facility] Chloride assayOrdered By: Carter Massey on 08-14-2024 Chloride [Moles/Vol] 105 mmol/L 98-108 [facility] Chloride assay 105 mmol/L 98-108 [facility] Cholesterol [Mass/Vol]Ordere d By: Millie Massey on 08-14-2024 Serum or plasma cholesterol measurement (mass/volume) 72 mg/dL <201 [facility] Cholesterol in HDL [Mass/Vol ]Ordered By: Millie Massey on 08-14-2024 Serum or plasma cholesterol in HDL measurement (mass/volume) 27 mg/dL Low >40 [facility] Clarity (U)Ordered By: Ciaran Rodrigez on 08-14-2024 Urine clarity Sl. Cloudy Clear [facility] Cobalamin (Vitamin B12) [Mas s/Vol]Ordered By: Millie Massey on 08-14-2024 Vitamin B12 ser/plas 599 pg/mL 180-914 [facility] Color (U)Ordered By: Ciaran Singh on 08-14-2024 Urine color determination Yellow Yellow [facility] Comprehensive Metabolic Prof ilon 08-14-2024 Albumin [Mass/Vol] 2.0 g/dL Low 3.4-4.8 [facility] Comment on above: Performed By: #### L 500.4050, L100.0100 ####[facility] [address] [place], [address] Albumin/Globulin [Mass ratio] 0.6 {ratio} Low 0.9-2.4 [facility] Comment on above: Performed By: #### L 500.4050, L100.0100 ####[facility] [address] [place], [address] ALK PHOS 71 U/L Normal 35-104 [facility] Comment on above: Performed By: #### L 500.4050, L100.0100 ####[facility] [address] [place], [address] ALT [Catalytic activity/Vol] 9 U/L Normal <=34 [facility] Comment on above: Performed By: #### L 500.4050, L100.0100 ####[facility] [address] [place], [address] AST [Catalytic activity/Vol] 29 U/L Normal <=31 [facility] Comment on above: Result Comment: Hemo lysis present, Results??could be affected.?? Performed By: #### L 500.4050, L100.0100 ####[facility] [address] [place], [address] Bilirubin [Mass/Vol] 0.18 mg/dL Normal 0.00-1.30 [facility] Comment on above: Performed By: #### L 500.4050, L100.0100 ####[facility] [address] [place], [address] BUN/CRE 29.1 RATIO High 10-20 [facility] Comment on above: Performed By: #### L 500.4050, L100.0100 ####[facility] [address] [place], [address] Calcium [Mass/Vol] 7.8 mg/dL Normal 7.6-11.0 [facility] Comment on above: Performed By: #### L 500.4050, L100.0100 ####[facility] [address] [place], [address] Chloride [Moles/Vol] 104 mmol/L Normal 98-108 [facility] Comment on above: Performed By: #### L 500.4050, L100.0100 ####[facility] [address] [place], [address] CO2 [Moles/Vol] 19.2 mmol/L Low 21.0-32.0 [facility] Comment on above: Performed By: #### L 500.4050, L100.0100 ####[facility] [address] [place], [address] Creatinine [Mass/Vol] 1.34 mg/dL High 0.70-1.20 [facility] Comment on above: Performed By: #### L 500.4050, L100.0100 ####[facility] [address] [place], [address] ECRCL 38.48 ml/min Low 50-250 [facility] Comment on above: Performed By: #### L 500.4050, L100.0100 ####[facility] [address] [place], [address] GAP 9 Normal 5-15 [facility] Comment on above: Performed By: #### L 500.4050, L100.0100 ####[facility] [address] [place], [address] GFR/1.73 sq M.predicted among non-blacks MDRD (S/P/Bld) [Vol rate/Area] 45 mL/min/{1.73_m2} Low >60 [facility] Comment on above: Result Comment: mL/m in/1.73m2 CKD-EPI Creatinine Equation (2020) Performed By: #### L 500.4050, L100.0100 ####[facility] [address] [place], [address] Globulin (S) [Mass/Vol] 3.4 g/dL Normal 2.2-4.2 [facility] Comment on above: Performed By: #### L 500.4050, L100.0100 ####[facility] [address] [place], [address] Glucose [Mass/Vol] 85 mg/dL Normal 70-99 [facility] Comment on above: Performed By: #### L 500.4050, L100.0100 ####[facility] [address] [place], [address] Potassium [Moles/Vol] 5.4 mmol/L High 3.3-5.1 [facility] Comment on above: Result Comment: Hemo lysis present, Results??could be affected.?? Performed By: #### L 500.4050, L100.0100 ####[facility] [address] [place], [address] Sodium [Moles/Vol] 131 mmol/L Low 133-145 [facility] Comment on above: Performed By: #### L 500.4050, L100.0100 ####[facility] [address] [place], [address] T PROT 5.5 g/dL Low 5.9-8.4 [facility] Comment on above: Performed By: #### L 500.4050, L100.0100 ####[facility] [address] [place], [address] Urea nitrogen [Mass/Vol] 39 mg/dL High - [facility] Comment on above: Performed By: #### L 500.4050, L100.0100 ####[facility] [address] [place], [address] Creatinine [Mass/Vol]Ordered By: Ciaran Rodrigez on 08-14-2024 Serum creatinine measurement (mass/volume) 1.34 mg/dL High 0.70-1.20 [facility] Creatinine [Mass/Vol]Ordered By: Millie Massey on 08-14-2024 Serum creatinine measurement (mass/volume) 1.34 mg/dL High 0.70-1.20 [facility] Determination of fraction of inspired oxygenOrdered By: Ciaran Rodrigez on 08-14-2024 Determination of fraction of inspired oxygen 44.0 [facility] Dialysis Vein Map PRE-OP LEXIE ATon 08-14-2024 Dialysis Vein Map PRE-OP BILAT Normal [facility] Differential Commenton 08-14 SMEAR COMMENT COMMENT Normal [facility] Comment on above: Order Comment: 206 Result Comment: 1+ A NISO. Performed By: #### L 500.4100, L100.4500, L506.1001, L500.2500, L501.9520, L100.0500, L501.5200, L503.0106 ####[facility] [address] [place], [address] Echo Completeon 08-14-2024 Echo Complete Normal [facility] Emergency Department Summary on 08-14-2024 Emergency Department Summary Normal [facility] Eosinophil percentageOrdered By: Ciaran Rodrigez on 08-14-2024 Eosinophil percentage 1.9 % 0-5 [facility] Erythrocyte distribution wid th (RBC) [Entitic vol]Ordered By: Ciaran Walsh on 08-14-2024 Erythrocyte distribution width standard deviation 70.0 fl High 35.1-43.9 [facility] Erythrocyte distribution wid th (RBC) [Ratio]Ordered By: Ciaran Rodrigez on 08-14-2024 Erythrocyte distribution width ratio 21.0 % High 11.6-14.6 [facility] Erythrocyte distribution wid th (RBC) [Ratio]Ordered By: Millie Massey on 08-14-2024 Erythrocyte distribution width ratio 21.0 % High 11.6-14.6 [facility] Erythrocyte distribution wid th ratioOrdered By: Millie Massey on 08-14-2024 Erythrocyte distribution width (RBC) [Ratio] 21.0 % High 11.6-14.6 [facility] Erythrocyte distribution wid th standard deviationOrdered By: Millie Massey on 08-14-2024 Erythrocyte distribution width (RBC) [Ratio] 69.6 fl High 35.1-43.9 [facility] Erythrocyte distribution width standard deviation 69.6 fl High 35.1-43.9 [facility] Estimation of creatinine austen aranceOrdered By: Ciaran Rodrigez on 08-14-2024 Estimation of creatinine clearance 38.48 ml/min Low 50-250 [facility] GFR/1.73 sq M.predicted víctor g non-blacks MDRD (S/P/Bld) [Vol rate/Area]Ordered By: Ciaran Rodrigez on 08-14-2024 Glomerular filtration rate (GFR) estimation/1.73 sq m using serum, plasma, or whole b 45 Low >60 [facility] GFR/1.73 sq M.predicted víctor g non-blacks MDRD (S/P/Bld) [Vol rate/Area]Ordered By: Millie Massey on 08-14-2024 Glomerular filtration rate (GFR) estimation/1.73 sq m using serum, plasma, or whole b 45 Low >60 [facility] Glomerular filtration rate ( GFR) estimation/1.73 sq m using serum, plasma, or whole bOrdered By: Millie Massey on 08-14-2024 GFR/1.73 sq M.predicted among non-blacks MDRD (S/P/Bld) [Vol rate/Area] 45 mL/min/{1.73_m2} Low >60 [facility] Glucoseon 08-14-2024 Glucose [Mass/Vol] 79 mg/dL Normal 70-99 [facility] Comment on above: Performed By: #### L 501.0100 ####[facility] [address] [place], [address] Glucose [Mass/Vol]Ordered By : Ciaran Rodrigez on 08-14-2024 Serum glucose measurement (mass/volume) 85 mg/dL 70- [facility] Glucose [Mass/Vol]Ordered By : Millie Massey on 08-14-2024 Serum glucose measurement (mass/volume) 84 mg/dL - [facility] H AND P Exam - Hospitaliston 08-14-2024 H&P Exam - Hospitalist Normal [facility] Hematocrit Auto (Bld) [Volum e fraction]Ordered By: Ciaran Rodrigez on 08-14-2024 Automated blood hematocrit (percentage) 29.0 % Low 37-47 [facility] Hematocrit Auto (Bld) [Volum e fraction]Ordered By: Millie Massey on 08-14-2024 Hematocrit (Bld) [Volume fraction] 30.9 % Low - [facility] Automated blood hematocrit (percentage) 30.9 % Low 37-47 [facility] Hemoglobin measurementOrdere d By: Ciaran Rodrigez on 08-14-2024 Hemoglobin measurement 8.7 g/dL Low 12.0-15.0 [facility] Hemoglobin measurementOrdere d By: Millie Massey on 08-14-2024 Hemoglobin (Bld) [Mass/Vol] 9.2 g/dL Low 12.0-15.0 [facility] Hemoglobin measurement 9.2 g/dL Low 12.0-15.0 [facility] Immature granulocytes/100 WB C Auto (Bld)Ordered By: Ciaran Rodrigez on 08-14-2024 Automated immature granulocyte percentage 3.300 % High 0.0-0.9 [facility] Influenza virus A and B and SARS-CoV-2 (COVID-19) and Respiratory syncytial virus RNAOrdered By: Ciaran Rodrigez on 08-14-2024 SARS-CoV-2 (COVID-19) RNA MOISES+probe Ql (Unsp spec) [facility] International normalized rat io (INR) calculationOrdered By: Lytle Rain on 08-14-2024 International normalized ratio (INR) calculation 1.1 [facility] Ketones Test strip Ql (U)Ord ered By: Ciaran Rain on 08-14-2024 Ketones Ql (U) Negative Negative [facility] L499.0042on 08-14-2024 Trop T High Sen 221 ng/L Invalid Interpretation Code <=14 [facility] Comment on above: Result Comment: Crit ical Result(s) Called at 1058: TO HORR by:ZyncdAPPER??Results read back by same. Performed By: #### L 499.0042 ####[facility] [address] [place], [address] L501.4021on 08-14-2024 Trop T High Sen 224 ng/L Invalid Interpretation Code <=14 [facility] Comment on above: Result Comment: Crit ical Result(s) Called at 0906: TO CDANTEL by:KCLAPPER??Results read back by same. Performed By: #### M 200.1000, L503.6005, L501.4021 ####[facility] [address] [place], [address] L503.0106on 08-14-2024 Cobalamin (Vitamin B12) [Mass/Vol] 599 pg/mL Normal 180-914 [facility] Comment on above: Order Comment: 206 Performed By: #### L 500.4100, L100.4500, L506.1001, L500.2500, L501.9520, L100.0500, L501.5200, L503.0106 ####[facility] [address] [place], [address] L506.1001on 08-14-2024 Vitamin D 25-OH 26.7 ng/mL Low 30-100 [facility] Comment on above: Order Comment: 206 Result Comment: Kelly min D StatusDeficiency: <20 ng/mL (50nmol/L)Insufficiency: 20-30 ng/mL (50-75 nmol/L)Sufficiency: 30-100 ng/mL (75-250 nmol/L)Toxicity: >100 ng/mL (>250 nmol/L) Performed By: #### L 500.4100, L100.4500, L506.1001, L500.2500, L501.9520, L100.0500, L501.5200, L503.0106 ####[facility] [address] [place], [address] LDHon 08-14-2024 LDH 239 U/L Normal 84-246 [facility] Comment on above: Order Comment: 1 Result Comment: Hemo lysis present, Results??could be affected.?? Performed By: #### L 504.2610, L001.0705 ####[facility] [address] [place], [address] LDL calc ser/plasOrdered By: Millie Massey on 08-14-2024 Cholesterol in LDL [Mass/Vol] 36 mg/dL [facility] LDL calc ser/plas 36 mg/dL [facility] Lactate dehydrogenase (LDH) measurementOrdered By: Nikolas Magaña on 08-14-2024 Lactate dehydrogenase (LDH) measurement 239 U/L 84-246 [facility] Lactic Acidon 08-14-2024 Lactate [Moles/Vol] 3.1 mmol/L Invalid Interpretation Code 0.0-2.0 [facility] Comment on above: Order Comment: Y Result Comment: Crit ical Result(s) Called at 09: TO CDANTEL by:KCLAPPER??Results read back by same. Performed By: #### M 200.1000, L503.6005, L501.4021 ####[facility] [address] [facility] [place], [address] Lactic acid measurementOrder ed By: Ciaran Rodrigez on 08-14-2024 Lactic acid measurement 3.1 mmol/L High 0.0-2.0 [facility] Leukocyte esterase Test stri p Ql (U)Ordered By: Ciaran Rodrigez on 08-14-2024 Urine leukocyte esterase detection by dipstick 500 /ul High Negative [facility] Lipid Profileon 08-14-2024 CHOL:HDL 2.71 Normal [facility] Comment on above: Order Comment: 206 Performed By: #### L 500.4100, L100.4500, L506.1001, L500.2500, L501.9520, L100.0500, L501.5200, L503.0106 ####[facility] [address] [facility] [place], [address] Cholesterol [Mass/Vol] 72 mg/dL Normal <=200 [facility] Comment on above: Order Comment: 206 Result Comment: Chol esterol level, Desirable <200 mg/dLBorderline high cholesterol 200-239 mg/dLHigh cholesterol >=240 mg/dLRecommendations of the NCEP Adult Treatment Panel for thefollowing risk-cutoff thresholds for the [place] [facility]. Performed By: #### L 500.4100, L100.4500, L506.1001, L500.2500, L501.9520, L100.0500, L501.5200, L503.0106 ####[facility] [address] [place], [address] Cholesterol in HDL [Mass/Vol] 27 mg/dL Low [facility] Comment on above: Order Comment: 206 Result Comment: Lucila onal Cholesterol Education Program (NCEP) guidelines:<40 mg/dL: Low HDL-cholesterol (major risk factor for CHD)>= 60 mg/dL: High HDL-cholesterol (negative risk factor forCHD)HDL-cholesterol is affected by a number of factors, e.g.smoking, exercise, hormones, sex and age. Performed By: #### L 500.4100, L100.4500, L506.1001, L500.2500, L501.9520, L100.0500, L501.5200, L503.0106 ####[facility] [address] [place], [address] Cholesterol in LDL [Mass/Vol] 36 mg/dL Normal [facility] Comment on above: Order Comment: 206 Result Comment: Bord pobkrf=215-180 mg/dL Higher Qkjw=706 mg/dL or greater Performed By: #### L 500.4100, L100.4500, L506.1001, L500.2500, L501.9520, L100.0500, L501.5200, L503.0106 ####[facility] [address] [place], [address] Cholesterol in VLDL [Mass/Vol] 9 mg/dL Normal 5-40 [facility] Comment on above: Order Comment: 206 Performed By: #### L 500.4100, L100.4500, L506.1001, L500.2500, L501.9520, L100.0500, L501.5200, L503.0106 ####[facility] [address] [place], [address] Triglyceride [Mass/Vol] 46 mg/dL Normal [facility] Comment on above: Order Comment: 206 Result Comment: The drugs N-Acetylcysteine and Metamizole may falselydepress this assay.Normal range: <150 mg/dLBorderline High: 150-199 mg/dLHigh: 200-499 mg/dLVery High: >500 mg/dL Performed By: #### L 500.4100, L100.4500, L506.1001, L500.2500, L501.9520, L100.0500, L501.5200, L503.0106 ####[facility] [address] [place], [address] Lymphocytes Auto (Unsp spec) [#/Vol]Ordered By: Ciaran Rodrigez on 08-14-2024 Absolute lymphocyte count 0.77 X10^3/uL Low 0.83-4.51 [facility] Lymphocytes/100 WBC Auto (Un sp spec)Ordered By: Ciaran Rodrigez on 08-14-2024 Automated lymphocyte count as percentage of total leukocytes 8.6 % Low 19-41 [facility] M100.678on 08-14-2024 M100.678 Pending SARS-CoV-2 (COVID 19) Negative INFLUENZA A Negative INFLUENZA B Negative RSV PCR Negative Normal [facility] Comment on above: Performed By: #### M 100.678 ####[facility] [address] [place], [place], [id number] MCV (RBC) [Entitic vol]Order ed By: Ciaran Rodrigez on 08-14-2024 MCV (mean corpuscular volume) determination 93.9 fL 81-99 [facility] MCV (RBC) [Entitic vol]Order ed By: Millie Massey on 08-14-2024 MCV (mean corpuscular volume) determination 92.8 fL 81-99 [facility] MCV (mean corpuscular volume ) determinationOrdered By: Millie Massey on 08-14-2024 MCV (RBC) [Entitic vol] 92.8 fL 81-99 [facility] Magnesiumon 08-14-2024 Magnesium [Mass/Vol] 1.4 mg/dL Low 1.5-2.2 [facility] Comment on above: Performed By: #### L 501.2300, L501.5200 ####[facility] [address] [place], [address] Magnesium [Mass/Vol] 1.5 mg/dL Normal 1.5-2.2 [facility] Comment on above: Order Comment: 206 Performed By: #### L 500.4100, L100.4500, L506.1001, L500.2500, L501.9520, L100.0500, L501.5200, L503.0106 ####[facility] [address] [place], [address] Magnesium (Unsp spec) [Mass/ Vol]Ordered By: Nikolas Magaña on 08-14-2024 Magnesium measurement (mass/volume) 1.4 mg/dL Low 1.5-2.2 [facility] Magnesium (Unsp spec) [Mass/ Vol]Ordered By: Millie Massey on 08-14-2024 Magnesium measurement (mass/volume) 1.5 mg/dL 1.5-2.2 [facility] Magnesium measurement (mass/ volume)Ordered By: Nikolas Magaña on 08-14-2024 Magnesium (Unsp spec) [Mass/Vol] 1.4 mg/dL Low 1.5-2.2 [facility] Magnesium measurement (mass/ volume)Ordered By: Millie Massey on 08-14-2024 Magnesium (Unsp spec) [Mass/Vol] 1.5 mg/dL 1.5-2.2 [facility] Manual differential comment Horace (Bld) [Interp]Ordered By: Millie Massey on 08-14-2024 Blood manual differential comment interpretation (narrative result) COMMENT [facility] Mean corpuscular hemoglobin (MCH) determinationOrdered By: Ciaran Rodrigez on 08-14-2024 Mean corpuscular hemoglobin (MCH) determination 28.2 pg 27.0-32.0 [facility] Mean corpuscular hemoglobin (MCH) determinationOrdered By: Millie Massey on 08-14-2024 MCH (RBC) [Entitic mass] 27.6 pg 27.0-32.0 [facility] Mean corpuscular hemoglobin (MCH) determination 27.6 pg 27.0-32.0 [facility] Mean corpuscular hemoglobin concentration (MCHC) determinationOrdered By: Ciaran Rodrigez on 08-14-2024 Mean corpuscular hemoglobin concentration (MCHC) determination 30.0 g/dL Low 32-36 [facility] Mean corpuscular hemoglobin concentration (MCHC) determinationOrdered By: Millie Massey on 08-14-2024 Mean corpuscular hemoglobin concentration (MCHC) determination 29.8 g/dL Low 32-36 [facility] Mean platelet volume determi nationOrdered By: Ciaran Rodrigez on 08-14-2024 Mean platelet volume determination 10.2 fl 6.2-12.0 [facility] Mean platelet volume determi nationOrdered By: Millie Massey on 08-14-2024 Mean platelet volume determination 10.8 fl 6.2-12.0 [facility] Measurement, pHOrdered By: Vika Rodrigez on 08-14-2024 pH (Unsp spec) 7.36 [pH] 7.35-7.45 [facility] Microscopic analysis of urin e for red blood cells (RBC)Ordered By: Ciaran Rodrigez on 08-14-2024 Microscopic analysis of urine for red blood cells (RBC) 0-5 SEEN /hpf 5-10 [facility] Monocyte percentageOrdered B y: Ciaran Rodrigez on 08-14-2024 Monocyte percentage 6.1 % 0-10 [facility] Mucus LM Ql (Urine sed)Order ed By: Ciaran Rodrigez on 08-14-2024 Mucus Ql (Urine sed) 0 SEEN /hpf [facility] Neutrophil percentageOrdered By: Ciaran Rodrigez on 08-14-2024 Neutrophil percentage 79.5 % High 47-70 [facility] Nitrite Test strip Ql (U)Ord ered By: Ciaran Rodrigez on 08-14-2024 Nitrite Ql (U) Negative Negative [facility] No Panel InformationOrdered By: Ciaran Rodrigez on 08-14-2024 ART [facility] R Radial [facility] Not entered [facility] Cannula [facility] 224 ng/L High <14 [facility] 29 U/L <32 [facility] Nucleated red blood cell per centageOrdered By: Ciaran Rodrigez on 08-14-2024 Nucleated red blood cell percentage 0 % 0-5 [facility] Oxygen saturation measuremen tOrdered By: Ciaran Rodrigez on 08-14-2024 Oxygen saturation measurement 98 % 95-99 [facility] Partial Thromboplast Timeon 08-14-2024 aPTT Coag (Bld) [Time] 33.6 s Normal 24.1-36.2 [facility] Comment on above: Performed By: #### L 300.3900, L300.4310 ####[facility] [address] [place], [place], [id number] Partial pressure of carbon d ioxide measurementOrdered By: Ciaran Rodrigez on 08-14-2024 Partial pressure of carbon dioxide measurement 39.1 mmHg 35-45 [facility] Partial pressure of oxygen m easurementOrdered By: Ciaran Rodrigez on 08-14-2024 Partial pressure of oxygen measurement 105 mmHG High 75-100 [facility] Phosphoruson 08-14-2024 Phosphate [Mass/Vol] 3.0 mg/dL Normal 2.7-4.5 [facility] Comment on above: Performed By: #### L 501.2300, L501.5200 ####[facility] [address] [place], [place], [id number] Platelet countOrdered By: Dakota Rodrigez on 08-14-2024 Platelet count 147 K/mm3 Low 150-450 [facility] Platelet countOrdered By: Carter Massey on 08-14-2024 Platelets (Bld) [#/Vol] 137 10*3/uL Low 150-450 [facility] Platelet count 137 K/mm3 Low 150-450 [facility] Potassium (Unsp spec) [Mass/ Vol]Ordered By: Ciaran Rodrigez on 08-14-2024 Potassium measurement (mass/volume) 5.4 mmol/L High 3.3-5.1 [facility] Potassium (Unsp spec) [Mass/ Vol]Ordered By: Millie Massey on 08-14-2024 Potassium measurement (mass/volume) 5.3 mmol/L High 3.3-5.1 [facility] Potassium measurement (mass/ volume)Ordered By: Millie Massey on 08-14-2024 Potassium (Unsp spec) [Mass/Vol] 5.3 mmol/L High 3.3-5.1 [facility] Protein Test strip Ql (U)Ord ered By: Ciaran Rodrigez on 08-14-2024 Protein Ql (U) 30 mg/dl High Negative [facility] Urine protein assay by test strip, semi-quantitative 30 mg/dl High Negative [facility] Protein, Totalon 08-14-2024 T PROT 5.4 g/dL Low 5.9-8.4 [facility] Comment on above: Performed By: #### L 504.2610, L001.0705 ####[facility] [address] [place], [address] Prothrombin Time w/INRon INR Coag (PPP) [Relative time] 1.1 {INR} Normal [facility] Comment on above: Performed By: #### L 300.3900, L300.4310 ####[facility] [address] [place], [address] PT Coag (PPP) [Time] 14.6 s Normal 11.7-14.9 [facility] Comment on above: Performed By: #### L 300.3900, L300.4310 ####[facility] [address] [place], [address] Prothrombin timeOrdered By: Ciaran Rodrigez on 08-14-2024 PT Coag (PPP) [Time] 14.6 s 11.7-14.9 [facility] Prothrombin time 14.6 SECONDS 11.7-14.9 [facility] RBC Auto (Bld) [#/Vol]Ordere d By: Ciaran Rodrigez on 08-14-2024 Automated blood erythrocyte count 3.09 M/mm3 Low 4.2-5.4 [facility] RBC Auto (Bld) [#/Vol]Ordere d By: Millie Massey on 08-14-2024 RBC (Bld) [#/Vol] 3.33 10*6/uL Low 4.2-5.4 [facility] Automated blood erythrocyte count 3.33 M/mm3 Low 4.2-5.4 [facility] Screening total cholesterol/ high density lipoprotein (HDL) cholesterol ratioOrdered By: Millie Massey on 08-14-2024 Screening total cholesterol/high density lipoprotein (HDL) cholesterol ratio 2.71 [facility] Serum creatinine measurement (mass/volume)Ordered By: Millie Massey on 08-14-2024 Creatinine [Mass/Vol] 1.34 mg/dL High 0.70-1.20 [facility] Serum globulin measurementOr dered By: Ciaran Rodrigez on 08-14-2024 Globulin (S) [Mass/Vol] 3.4 g/dL 2.2-4.2 [facility] Serum globulin measurement 3.4 g/dL 2.2-4.2 [facility] Serum glucose measurement (m ass/volume)Ordered By: Millie aMssey on 08-14-2024 Glucose [Mass/Vol] 84 mg/dL 70-99 [facility] Serum or plasma alanine camargo otransferase (ALT) measurementOrdered By: Ciaran Rodrigez on 08-14-2024 ALT [Catalytic activity/Vol] 9 U/L <35 [facility] Serum or plasma albumin megan urement (mass/volume)Ordered By: Ciaran Walsh on 08-14-2024 Albumin [Mass/Vol] 2.0 g/dL Low 3.4-4.8 [facility] Serum or plasma albumin/glob ulin mass ratioOrdered By: Ciaran Rodrigez on 08-14-2024 Albumin/Globulin [Mass ratio] 0.6 {ratio} Low 0.9-2.4 [facility] Serum or plasma alkaline susan sphatase measurementOrdered By: Ciaran Rodrigez on 08-14-2024 ALP [Catalytic activity/Vol] 71 U/L 35-104 [facility] Serum or plasma calcium megan urement (mass/volume)Ordered By: Millie Massey on 08-14-2024 Calcium [Mass/Vol] 7.8 mg/dL 7.6-11.0 [facility] Serum or plasma cholesterol in HDL measurement (mass/volume)Ordered By: Millie Massey on 08-14-2024 Cholesterol in HDL [Mass/Vol] 27 mg/dL Low >40 [facility] Serum or plasma cholesterol measurement (mass/volume)Ordered By: Millie Massey on 08-14-2024 Cholesterol [Mass/Vol] 72 mg/dL <201 [facility] Serum or plasma urea nitroge n measurement (mass/volume)Ordered By: Millie Massey on 08-14-2024 Urea nitrogen [Mass/Vol] 39 mg/dL High 4-19 [facility] Serum phosphorus measurement Ordered By: Nikolas Magaña on 08-14-2024 Serum phosphorus measurement 3.0 mg/dL 2.7-4.5 [facility] Sodium levelOrdered By: Ward Rodrigez on 08-14-2024 Sodium level 131 mmol/L Low 133-145 [facility] Sodium levelOrdered By: Silvana Massey on 08-14-2024 Sodium [Moles/Vol] 132 mmol/L Low 133-145 [facility] Sodium level 132 mmol/L Low 133-145 [facility] Specific gravity (U) [Rel de nsity]Ordered By: Ciaran Rodrigez on 08-14-2024 Urine specific gravity measurement 1.010 1.002-1.03 0 [facility] Squamous epithelial cells de tection in urine sediment by light microscopyOrdered By: Ciaran Rodrigez on 08-14-2024 Epithelial cells.squamous LM Ql (Urine sed) 0-5 SEEN /hpf 5-10 [facility] TSH DL <= 0.005 mIU/L QnOrde red By: Millie Massey on 08-14-2024 TSH Qn 9.430 uIU/mL High 0.300-4.20 0 [facility] Serum or plasma thyroid stimulating hormone (TSH) measurement by high sensitivity met 9.430 uIU/mL High 0.300-4.20 0 [facility] Thyroid Stim Hormone (TSH)on 08-14-2024 TSH 9.430 uIU/mL High 0.300-4.20 0 [facility] Comment on above: Order Comment: 206 Performed By: #### L 500.4100, L100.4500, L506.1001, L500.2500, L501.9520, L100.0500, L501.5200, L503.0106 ####[facility] [address] [place], [address] Total carbon dioxide measure mentOrdered By: Ciaran Rodrigez on 08-14-2024 CO2 [Moles/Vol] 23 mmol/L [facility] Total carbon dioxide measurement 23 mmol/L [facility] Total proteinOrdered By: Myke Magaña on 08-14-2024 Protein [Mass/Vol] 5.4 g/dL Low 5.9-8.4 [facility] Total protein 5.4 g/dL Low 5.9-8.4 [facility] Total proteinOrdered By: Adelfo Rodrigez on 08-14-2024 Total protein 5.5 g/dL Low 5.9-8.4 [facility] Triglycerides measurementOrd ered By: Millie Massey on 08-14-2024 Triglycerides measurement 46 mg/dL <199 [facility] Troponin T.cardiac High sens itivity method [Mass/Vol]Ordered By: Ciaran Walsh on 08-14-2024 Troponin T.cardiac [Mass/volume] in Serum or Plasma by High sensitivity method 221 ng/L High <14 [facility] Troponin T.cardiac [Mass/vol ume] in Serum or Plasma by High sensitivity methodOrdered By: Ciaran Rodrigez on 08-14-2024 Troponin T.cardiac High sensitivity method [Mass/Vol] 221 ng/L High <14 [facility] Urea nitrogen [Mass/Vol]Orde red By: Ciaran Rodrigez on 08-14-2024 Serum or plasma urea nitrogen measurement (mass/volume) 39 mg/dL High -19 [facility] Urea nitrogen [Mass/Vol]Orde red By: Millie Massey on 08-14-2024 Serum or plasma urea nitrogen measurement (mass/volume) 39 mg/dL High 4-19 [facility] Urinalysis, Completeon 08-14 CA OX CRYSTAL 1+ /hpf Normal [facility] Comment on above: Order Comment: ADWOA CTOR TO SPECIFY Performed By: #### L 400.0001 ####[facility] [address] [place], [address] EPI,SQUAMOUS 0-5 SEEN Normal 5-10 [facility] Comment on above: Order Comment: ADWOA CTOR TO SPECIFY Performed By: #### L 400.0001 ####[facility] [address] [place], [address] RBC 0-5 SEEN Normal 0-5 [facility] Comment on above: Order Comment: ADWOA CTOR TO SPECIFY Performed By: #### L 400.0001 ####[facility] [address] [place], [address] WBC 25-50 SEEN Normal 0-5 [facility] Comment on above: Order Comment: ADWOA CTOR TO SPECIFY Performed By: #### L 400.0001 ####[facility] [address] [place], [address] BACTERIA 0 SEEN Normal None Seen [facility] Comment on above: Order Comment: ADWOA CTOR TO SPECIFY Performed By: #### L 400.0001 ####[facility] [address] [place], [address] Mucus Ql (Urine sed) 0 SEEN Normal [facility] Comment on above: Order Comment: ADWOA CTOR TO SPECIFY Performed By: #### L 400.0001 ####[facility] [address] [place], [address] Urine blood detectionOrdered By: Ciaran Rodrigez on 08-14-2024 Urine blood detection 25 /ul High Negative [facility] Urine clarityOrdered By: Adelfo Rodrigez on 08-14-2024 Clarity (U) Sl. Cloudy Clear [facility] Urine color determinationOrd ered By: Ciaran Rodrigez on 08-14-2024 Color (U) Yellow Yellow [facility] Urine cultureOrdered By: Adelfo Rodrigez on 08-14-2024 Bacteria identified Cx Nom (U) Enterococcus faecium Abnormal [facility] Bacteria identified Cx Nom (U) Citrobacter freundii Abnormal [facility] Urine culture Enterococcus faecium Abnormal W [facility] Urine culture Citrobacter freundii Abnormal W [facility] Urine glucose detectionOrder ed By: Ciaran Rodrigez on 08-14-2024 Glucose Ql (U) Normal mg/dl Normal [facility] Urine glucose detection Normal mg/dl Normal [facility] Urine leukocyte esterase det ection by dipstickOrdered By: Ciaran Rodrigez on 08-14-2024 Leukocyte esterase Test strip Ql (U) 500 /ul High Negative [facility] Urine pHOrdered By: Ciaran Ruelas on 08-14-2024 pH (U) 8.0 [pH] 5.0 - 8.0 [facility] Urine sediment bacteria coun t by microscopy (number/high power field)Ordered By: Ciaran Rodrigez on 08-14-2024 Bacteria LM.HPF (Urine sed) [#/Area] 0 /[HPF] None Seen [facility] Urine sediment bacteria count by microscopy (number/high power field) 0 SEEN /hpf [facility] Urine specific gravity measu rementOrdered By: Ciaran Rodrigez on 08-14-2024 Specific gravity (U) [Rel density] 1.010 1.002-1.03 0 [facility] Urine total bilirubin detect ion by test stripOrdered By: Ciaran Rodrigez on 08-14-2024 Urine total bilirubin detection by test strip Negative Negative [facility] Urine urobilinogen measureme ntOrdered By: Ciaran Rodrigez on 08-14-2024 Urobilinogen Ql (U) Normal mg/dl Normal [facility] Vitamin B12 ser/plasOrdered By: Millie Massey on 08-14-2024 Cobalamin (Vitamin B12) [Mass/Vol] 599 pg/mL 180-914 [facility] Vitamin D, 25-hydroxyOrdered By: Millie Massey on 08-14-2024 Vitamin D, 25-hydroxy 26.7 ng/mL Low 30-100 [facility] White blood cell (WBC) count Ordered By: Ciaran Rodrigez on 08-14-2024 White blood cell (WBC) count 9.0 K/mm3 4.4-11.0 [facility] White blood cell (WBC) count Ordered By: Millie Massey on 08-14-2024 WBC (Bld) [#/Vol] 4.1 10*3/uL Low 4.4-11.0 [facility] White blood cell (WBC) count 4.1 K/mm3 Low 4.4-11.0 [facility] White blood cell countOrdere d By: Ciaran Rodrigez on 08-14-2024 White blood cell count 25-50 SEEN /hpf 0-5 [facility] White blood cell count 25-50 SEEN /hpf 0-5 [facility] aPTT Coag (PPP) [Time]Ordere d By: Ciaran Rodrigez on 08-14-2024 Activated partial thromboplastin time (aPTT) in platelet poor plasma by coagulation a 33.6 Seconds 24.1-36.2 [facility] pH (U)Ordered By: Ciaran Prieto on 08-14-2024 Urine pH 8.0 5.0 - 8.0 [facility] pH (Unsp spec)Ordered By: Dakota Rodrigez on 08-14-2024 Measurement, pH 7.36 7.35-7.45 [facility] Absolute lymphocyte countOrd ered By: Nikolas Magaña on 08-13-2024 Lymphocytes Auto (Unsp spec) [#/Vol] 0.60 10*3/uL Low 0.83-4.51 [facility] Absolute neutrophil countOrd ered By: Nikolas Magaña on 08-13-2024 Absolute neutrophil count 3.4 X10^3/uL 2.0-7.7 [facility] Anion gap [Moles/Vol]Ordered By: Nikolas Magaña on 08-13-2024 Anion gap in Serum or Plasma 7 5-15 [facility] Anion gap in Serum or Plasma Ordered By: Nikolas Magaña on 08-13-2024 Anion gap [Moles/Vol] 7 mmol/L 5-15 [facility] Automated lymphocyte count a s percentage of total leukocytesOrdered By: Nikolas Magaña on 08-13-2024 Lymphocytes/100 WBC Auto (Unsp spec) 12.9 % Low 19-41 [facility] BUN/creatinine ratioOrdered By: Nikolas Magaña on 08-13-2024 Urea nitrogen/Creatinine [Mass ratio] 22.7 mg/mg High 10-20 [facility] BUN/creatinine ratio 22.7 RATIO High 10-20 [facility] Basic Metabolic Profile (BMP )on 08-13-2024 BUN/CRE 22.7 RATIO High 10-20 [facility] Comment on above: Order Comment: PER P CU NURSEVALERIY TO DRAW @0815 WITH GLUCOSE Performed By: #### L 100.0100, L500.2500 ####[facility] [address] [place], [address] Calcium [Mass/Vol] 7.8 mg/dL Normal 7.6-11.0 [facility] Comment on above: Order Comment: PER P CU NURSEVALERIY TO DRAW @0815 WITH GLUCOSE Performed By: #### L 100.0100, L500.2500 ####[facility] [address] [place], [address] Chloride [Moles/Vol] 106 mmol/L Normal 98-108 [facility] Comment on above: Order Comment: PER P CU NURSEVALERIY TO DRAW @0815 WITH GLUCOSE Performed By: #### L 100.0100, L500.2500 ####[facility] [address] [place], [address] CO2 [Moles/Vol] 23.8 mmol/L Normal 21.0-32.0 [facility] Comment on above: Order Comment: PER P CU NURSEIMANAY TO DRAW @0815 WITH GLUCOSE Performed By: #### L 100.0100, L500.2500 ####[facility] [address] [place], [address] Creatinine [Mass/Vol] 1.21 mg/dL High 0.70-1.20 [facility] Comment on above: Order Comment: PER P CU NURSEIMANAY TO DRAW @0815 WITH GLUCOSE Performed By: #### L 100.0100, L500.2500 ####[facility] [address] [place], [address] ECRCL 30.44 ml/min Low 50-250 [facility] Comment on above: Order Comment: PER P CU NURSE, IMANAY TO DRAW @0815 WITH GLUCOSE Performed By: #### L 100.0100, L500.2500 ####[facility] [address] [place], [address] GAP 7 Normal 5-15 [facility] Comment on above: Order Comment: PER P CU NURSEVALERIY TO DRAW @0815 WITH GLUCOSE Performed By: #### L 100.0100, L500.2500 ####[facility] [address] [place], [address] GFR/1.73 sq M.predicted among non-blacks MDRD (S/P/Bld) [Vol rate/Area] 51 mL/min/{1.73_m2} Low >60 [facility] Comment on above: Order Comment: PER P CU NURSEIMANAY TO DRAW @0815 WITH GLUCOSE Result Comment: mL/m in/1.73m2 CKD-EPI Creatinine Equation (2020) Performed By: #### L 100.0100, L500.2500 ####[facility] [address] [place], [address] Glucose [Mass/Vol] 85 mg/dL Normal 70-99 [facility] Comment on above: Order Comment: PER P CU NURSEIMANAY TO DRAW @0815 WITH GLUCOSE Performed By: #### L 100.0100, L500.2500 ####[facility] [address] [place], [address] Potassium [Moles/Vol] 4.3 mmol/L Normal 3.3-5.1 [facility] Comment on above: Order Comment: PER P CU NURSE, IMANAY TO DRAW @0815 WITH GLUCOSE Performed By: #### L 100.0100, L500.2500 ####[facility] [address] [place], [address] Sodium [Moles/Vol] 137 mmol/L Normal 133-145 [facility] Comment on above: Order Comment: PER P CU NURSE, VALERIY TO DRAW @0815 WITH GLUCOSE Performed By: #### L 100.0100, L500.2500 ####[facility] [address] [place], [address] Urea nitrogen [Mass/Vol] 28 mg/dL High 4-19 [facility] Comment on above: Order Comment: PER P CU NURSE, VALERIY TO DRAW @0815 WITH GLUCOSE Performed By: #### L 100.0100, L500.2500 ####[facility] [address] [place], [address] Basophil percentageOrdered B y: Nikolasalex Magaña on 08-13-2024 Basophils/100 WBC (Bld) 1.1 % High 0-1 [facility] Basophil percentage 1.1 % High 0-1 [facility] Bedside Glucoseon 08-13-2024 FINGERSTICK GLU 134 mg/dL High 74-106 [facility] Comment on above: Result Comment: LUIZA GEMENT OF PATIENT CARE PER NURSING PROTOCOL Performed By: #### L 501.080 ####[facility] [address] [place], [address] FINGERSTICK GLU 86 mg/dL Normal 74-106 [facility] Comment on above: Result Comment: LUIZA GEMENT OF PATIENT CARE PER NURSING PROTOCOL Performed By: #### L 501.080 ####[facility] [address], [address] FINGERSTICK GLU 31 mg/dL Invalid Interpretation Code 74-106 [facility] Comment on above: Result Comment: Dext tushar 50 GivenMANAGEMENT OF PATIENT CARE PER NURSING PROTOCOL Performed By: #### L 501.080 ####[facility] [address] [place], [address] FINGERSTICK GLU 54 mg/dL Low 74-106 [facility] Comment on above: Result Comment: LUIZA GEMENT OF PATIENT CARE PER NURSING PROTOCOL Performed By: #### L 501.080 ####[facility] [address] [place], [address] FINGERSTICK GLU 88 mg/dL Normal 74-106 [facility] Comment on above: Result Comment: LUIZA GEMENT OF PATIENT CARE PER NURSING PROTOCOL Performed By: #### L 501.080 ####[facility] [address] [place], [address] FINGERSTICK GLU 93 mg/dL Normal 74-106 [facility] Comment on above: Result Comment: LUIZA GEMENT OF PATIENT CARE PER NURSING PROTOCOL Performed By: #### L 501.080 ####[facility] [address] [place], [address] CBC W/Diff, Automatedon 07-27 Absolute Lymph 0.60 X10 3/uL Low 0.83-4.51 [facility] Comment on above: Order Comment: PER P CU NURSE, OKAY TO DRAW @0815 WITH GLUCOSE Performed By: #### L 100.0100, L500.2500 ####[facility] [address] [place], [address] Absolute Neut 3.4 X10 3/uL Normal 2.0-7.7 [facility] Comment on above: Order Comment: PER P CU NURSE, OKAY TO DRAW @0815 WITH GLUCOSE Performed By: #### L 100.0100, L500.2500 ####[facility] [address] [place], [address] Basophils/100 WBC (Bld) 1.1 % High 0-1 [facility] Comment on above: Order Comment: PER P CU NURSE, OKAY TO DRAW @0815 WITH GLUCOSE Performed By: #### L 100.0100, L500.2500 ####[facility] [address] [place], [address] Eosinophils/100 WBC (Bld) 3.4 % Normal 0-5 [facility] Comment on above: Order Comment: PER P CU NURSE, OKAY TO DRAW @0815 WITH GLUCOSE Performed By: #### L 100.0100, L500.2500 ####[facility] [address] [place], [address] Erythrocyte distribution width (RBC) [Ratio] 20.0 % High 11.6-14.6 [facility] Comment on above: Order Comment: PER P CU NURSE, OKAY TO DRAW @0815 WITH GLUCOSE Performed By: #### L 100.0100, L500.2500 ####[facility] [address] [place], [address] Hematocrit (Bld) [Volume fraction] 26.7 % Low 37-47 [facility] Comment on above: Order Comment: PER P CU NURSE, OKAY TO DRAW @0815 WITH GLUCOSE Performed By: #### L 100.0100, L500.2500 ####[facility] [address] [place], [address] Hemoglobin (Bld) [Mass/Vol] 8.1 g/dL Low 12.0-15.0 [facility] Comment on above: Order Comment: PER P CU NURSE, OKAY TO DRAW @0815 WITH GLUCOSE Performed By: #### L 100.0100, L500.2500 ####[facility] [address] [place], [address] IG% 2.400 High 0.0-0.9 [facility] Comment on above: Order Comment: PER P CU NURSEIMANAY TO DRAW @0815 WITH GLUCOSE Result Comment: IG% - Immature Granulocytes (promyelocytes, myelocytes andmetamyelocytes) > 1% indicates that a LEFT SHIFT is Present. Performed By: #### L 100.0100, L500.2500 ####[facility] [address] [place], [address] Lymphocytes/100 WBC (Bld) 12.9 % Low 19-41 [facility] Comment on above: Order Comment: PER P CU NURSEIMANAY TO DRAW @0815 WITH GLUCOSE Performed By: #### L 100.0100, L500.2500 ####[facility] [address] [place], [address] MCH (RBC) [Entitic mass] 27.3 pg Normal 27.0-32.0 [facility] Comment on above: Order Comment: PER P CU NURSEVALERIY TO DRAW @0815 WITH GLUCOSE Performed By: #### L 100.0100, L500.2500 ####[facility] [address] [place], [address] MCHC (RBC) [Mass/Vol] 30.3 g/dL Low 32-36 [facility] Comment on above: Order Comment: PER P CU NURSEIMANAY TO DRAW @0815 WITH GLUCOSE Performed By: #### L 100.0100, L500.2500 ####[facility] [address] [place], [address] MCV (RBC) [Entitic vol] 89.9 fL Normal 81-99 [facility] Comment on above: Order Comment: PER P CU NURSEIMANAY TO DRAW @0815 WITH GLUCOSE Performed By: #### L 100.0100, L500.2500 ####[facility] [address] [place], [address] Monocytes/100 WBC (Bld) 8.2 % Normal 0-10 [facility] Comment on above: Order Comment: PER P CU NURSE, OKAY TO DRAW @0815 WITH GLUCOSE Performed By: #### L 100.0100, L500.2500 ####[facility] [address] [place], [address] Neutrophils/100 WBC (Bld) 72.0 % High 47-70 [facility] Comment on above: Order Comment: PER P CU NURSE, OKAY TO DRAW @0815 WITH GLUCOSE Performed By: #### L 100.0100, L500.2500 ####[facility] [address] [place], [address] Nucleated RBC (Bld) [#/Vol] 0 10*3/uL Normal 0-5 [facility] Comment on above: Order Comment: PER P CU NURSE, OKAY TO DRAW @0815 WITH GLUCOSE Performed By: #### L 100.0100, L500.2500 ####[facility] [address] [place], [address] Platelet mean volume (Bld) [Entitic vol] 10.2 fL Normal 6.2-12.0 [facility] Comment on above: Order Comment: PER P CU NURSE, OKAY TO DRAW @0815 WITH GLUCOSE Performed By: #### L 100.0100, L500.2500 ####[facility] [address] [place], [address] Platelets (Bld) [#/Vol] 120 10*3/uL Low 150-450 [facility] Comment on above: Order Comment: PER P CU NURSE, OKAY TO DRAW @0815 WITH GLUCOSE Performed By: #### L 100.0100, L500.2500 ####[facility] [address] [place], [address] RBC (Bld) [#/Vol] 2.97 10*6/uL Low 4.2-5.4 [facility] Comment on above: Order Comment: PER P CU NURSE, OKAY TO DRAW @0815 WITH GLUCOSE Performed By: #### L 100.0100, L500.2500 ####[facility] [address] [place], [address] RDW SD 62.6 fl High 35.1-43.9 [facility] Comment on above: Order Comment: PER P CU NURSEVALERIY TO DRAW @0815 WITH GLUCOSE Performed By: #### L 100.0100, L500.2500 ####[facility] [address] [place], [address] WBC (Bld) [#/Vol] 4.7 10*3/uL Normal 4.4-11.0 [facility] Comment on above: Order Comment: PER P CU NURSE, VALERIY TO DRAW @0815 WITH GLUCOSE Performed By: #### L 100.0100, L500.2500 ####[facility] [address] [place], [address] Calcium [Mass/Vol]Ordered By : Nikolas Magaña on 08-13-2024 Serum or plasma calcium measurement (mass/volume) 7.8 mg/dL 7.6-11.0 [facility] Carbon dioxide, total [Moles /volume] in Central venous bloodOrdered By: Nikolas Magaña on 08-13-2024 CO2 [Moles/Vol] 23.8 mmol/L 21.0-32.0 [facility] Carbon dioxide, total [Moles/volume] in Central venous blood 23.8 mmol/L 21.0-32.0 [facility] Chloride assayOrdered By: Oscar Magaña on 08-13-2024 Chloride [Moles/Vol] 106 mmol/L 98-108 [facility] Chloride assay 106 mmol/L 98-108 [facility] Creatinine [Mass/Vol]Ordered By: Nikolas Magaña on 08-13-2024 Serum creatinine measurement (mass/volume) 1.21 mg/dL High 0.70-1.20 [facility] Eosinophil percentageOrdered By: Nikolas Magaña on 08-13-2024 Eosinophils/100 WBC (Bld) 3.4 % 0-5 [facility] Eosinophil percentage 3.4 % 0-5 [facility] Erythrocyte distribution wid th (RBC) [Ratio]Ordered By: Nikolas Magaña on 08-13-2024 Erythrocyte distribution width ratio 20.0 % High 11.6-14.6 [facility] Erythrocyte distribution wid th ratioOrdered By: Nikolas Magaña on 08-13-2024 Erythrocyte distribution width (RBC) [Ratio] 20.0 % High 11.6-14.6 [facility] Erythrocyte distribution wid th standard deviationOrdered By: Nikolas Magaña on 08-13-2024 Erythrocyte distribution width (RBC) [Ratio] 62.6 fl High 35.1-43.9 [facility] Erythrocyte distribution width standard deviation 62.6 fl High 35.1-43.9 [facility] Estimation of creatinine austen aranceOrdered By: Nikolas Magaña on 08-13-2024 Estimation of creatinine clearance 30.44 ml/min Low 50-250 [facility] GFR/1.73 sq M.predicted víctor g non-blacks MDRD (S/P/Bld) [Vol rate/Area]Ordered By: Nikolas Magaña on 08-13-2024 Glomerular filtration rate (GFR) estimation/1.73 sq m using serum, plasma, or whole b 51 Low >60 [facility] Glomerular filtration rate ( GFR) estimation/1.73 sq m using serum, plasma, or whole bOrdered By: Nikolas Magaña on 08-13-2024 GFR/1.73 sq M.predicted among non-blacks MDRD (S/P/Bld) [Vol rate/Area] 51 mL/min/{1.73_m2} Low >60 [facility] Glucoseon 08-13-2024 Glucose [Mass/Vol] 121 mg/dL High 70-99 [facility] Comment on above: Performed By: #### L 501.0100 ####[facility] [address] [place], [address] Glucose [Mass/Vol] 105 mg/dL High 70-99 [facility] Comment on above: Performed By: #### L 501.0100 ####[facility] [address] [place], [address] Glucose [Mass/Vol] 103 mg/dL High 70-99 [facility] Comment on above: Performed By: #### L 501.0100 ####[facility] [address] [place], [address] Glucose [Mass/Vol]Ordered By : Judd Galvin on 08-13-2024 Serum glucose measurement (mass/volume) 121 mg/dL High 70-99 [facility] Glucose measurement at bedsi deOrdered By: Nikolas Magaña on 08-13-2024 Glucose [Mass/Vol] 134 mg/dL High 74-106 [facility] Glucose measurement at bedside 134 mg/dL High 74-106 [facility] HbA1c (Bld) [Mass fraction]O rdered By: Nikolas Magaña on 08-13-2024 Hemoglobin A1c percentage 5.1 % Low >5.7 [facility] Hematocrit Auto (Bld) [Volum e fraction]Ordered By: Nikolas Magaña on 08-13-2024 Hematocrit (Bld) [Volume fraction] 26.7 % Low 37-47 [facility] Automated blood hematocrit (percentage) 26.7 % Low 37-47 [facility] Hemoglobin A1con 08-13-2024 HbA1c (Bld) [Mass fraction] 5.1 % Low <=5.6 [facility] Comment on above: Order Comment: AGUSTIN JURADO NURSEVALERIY TO DRAW @0815 WITH GLUCOSE Performed By: #### L 501.9985 ####[facility] [address] [place], [place], [address] Hemoglobin A1c percentageOrd ered By: Nikolas Magaña on 08-13-2024 HbA1c (Bld) [Mass fraction] 5.1 % Low >5.7 [facility] Hemoglobin measurementOrdere d By: Nikolas Magaña on 08-13-2024 Hemoglobin (Bld) [Mass/Vol] 8.1 g/dL Low 12.0-15.0 [facility] Hemoglobin measurement 8.1 g/dL Low 12.0-15.0 [facility] Immature granulocytes/100 WB C Auto (Bld)Ordered By: Nikolas Magaña on 08-13-2024 Immature granulocytes/100 WBC (Bld) 2.400 % High 0.0-0.9 [facility] Automated immature granulocyte percentage 2.400 % High 0.0-0.9 [facility] Lymphocytes Auto (Unsp spec) [#/Vol]Ordered By: Nikolas Magaña on 08-13-2024 Absolute lymphocyte count 0.60 X10^3/uL Low 0.83-4.51 [facility] Lymphocytes/100 WBC Auto (Un sp spec)Ordered By: Nikolas Magaña on 08-13-2024 Automated lymphocyte count as percentage of total leukocytes 12.9 % Low 19-41 [facility] MCV (RBC) [Entitic vol]Order ed By: Nikolas Magaña on 08-13-2024 MCV (mean corpuscular volume) determination 89.9 fL 81-99 [facility] MCV (mean corpuscular volume ) determinationOrdered By: Nikolas Magaña on 08-13-2024 MCV (RBC) [Entitic vol] 89.9 fL 81-99 [facility] Mean corpuscular hemoglobin (MCH) determinationOrdered By: Nikolas Magaña on 08-13-2024 MCH (RBC) [Entitic mass] 27.3 pg 27.0-32.0 [facility] Mean corpuscular hemoglobin (MCH) determination 27.3 pg 27.0-32.0 [facility] Mean corpuscular hemoglobin concentration (MCHC) determinationOrdered By: Nikolas Magaña on 08-13-2024 Mean corpuscular hemoglobin concentration (MCHC) determination 30.3 g/dL Low 32-36 [facility] Mean platelet volume determi nationOrdered By: Nikolas Magaña on 08-13-2024 Mean platelet volume determination 10.2 fl 6.2-12.0 [facility] Monocyte percentageOrdered B y: Nikolas Magaña on 08-13-2024 Monocytes/100 WBC (Bld) 8.2 % 0-10 [facility] Monocyte percentage 8.2 % 0-10 [facility] Neutrophil percentageOrdered By: Nikolas Magaña on 08-13-2024 Neutrophils/100 WBC (Bld) 72.0 % High 47-70 [facility] Neutrophil percentage 72.0 % High 47-70 [facility] Nucleated red blood cell per centageOrdered By: Nikolas Magaña on 08-13-2024 Nucleated red blood cell percentage 0 % 0-5 [facility] Platelet countOrdered By: Oscar Magaña on 08-13-2024 Platelets (Bld) [#/Vol] 120 10*3/uL Low 150-450 [facility] Platelet count 120 K/mm3 Low 150-450 [facility] Potassium (Unsp spec) [Mass/ Vol]Ordered By: Nikolas Magaña on 08-13-2024 Potassium measurement (mass/volume) 4.3 mmol/L 3.3-5.1 [facility] Potassium measurement (mass/ volume)Ordered By: Nikolas Magaña on 08-13-2024 Potassium (Unsp spec) [Mass/Vol] 4.3 mmol/L 3.3-5.1 [facility] RBC Auto (Bld) [#/Vol]Ordere d By: Nikolas Magaña on 08-13-2024 RBC (Bld) [#/Vol] 2.97 10*6/uL Low 4.2-5.4 [facility] Automated blood erythrocyte count 2.97 M/mm3 Low 4.2-5.4 [facility] Serum creatinine measurement (mass/volume)Ordered By: Nikolas Magaña on 08-13-2024 Creatinine [Mass/Vol] 1.21 mg/dL High 0.70-1.20 [facility] Serum glucose measurement (m ass/volume)Ordered By: Judd Galvin on 08-13-2024 Glucose [Mass/Vol] 121 mg/dL High 70-99 [facility] Serum or plasma calcium megan urement (mass/volume)Ordered By: Nikolas Magaña on 08-13-2024 Calcium [Mass/Vol] 7.8 mg/dL 7.6-11.0 [facility] Serum or plasma urea nitroge n measurement (mass/volume)Ordered By: Nikolas Magaña on 08-13-2024 Urea nitrogen [Mass/Vol] 28 mg/dL High 4-19 [facility] Sodium levelOrdered By: Hemanth Magaña on 08-13-2024 Sodium [Moles/Vol] 137 mmol/L 133-145 [facility] Sodium level 137 mmol/L 133-145 [facility] Urea nitrogen [Mass/Vol]Orde red By: Nikolas Magaña on 08-13-2024 Serum or plasma urea nitrogen measurement (mass/volume) 28 mg/dL High 4-19 [facility] White blood cell (WBC) count Ordered By: Nikolas Magaña on 08-13-2024 WBC (Bld) [#/Vol] 4.7 10*3/uL 4.4-11.0 [facility] White blood cell (WBC) count 4.7 K/mm3 4.4-11.0 [facility] ABORh Blood Type, Patienton 08-12-2024 ABO and Rh group Nom (Bld) Blood group O Rh(D) positive Normal [facility] Comment on above: Order Comment: CMV N EG? NNumber of units to transfuse: 1Reason for Ordering Blood: AcuteAre the blood/blood products to be transfused? YIs the patient having/had surgery? NNWhen ReadyNYA Performed By: #### B , [id number], BTS, BtABORH, Z45651-7 ####[facility] [address] [place], [place], [id number] 08-12-2024 ANTIBODY ID Normal [facility] Comment on above: Result Comment: CFYA Performed By: #### B RC, [id number], BTS, BtABORH, [id number] ####[facility] [address] [place], [place], [address] BRCon 08-12-2024 RC Normal [facility] Comment on above: Result Comment: [id number] ON RC TRANSFUSED 08/12/24 1538 Performed By: #### B RC, [id number], BTS, BtABORH, [id number] ####[facility] [address] [place], [place], [address] Basic Metabolic Profile (BMP )on 08-12-2024 BUN/CRE 18.0 RATIO Normal 10-20 [facility] Comment on above: Performed By: #### L 500.2500, L100.0100 ####[facility] [address] [place], [address] Calcium [Mass/Vol] 7.6 mg/dL Normal 7.6-11.0 [facility] Comment on above: Performed By: #### L 500.2500, L100.0100 ####[facility] [address] [place], [address] Chloride [Moles/Vol] 106 mmol/L Normal 98-108 [facility] Comment on above: Performed By: #### L 500.2500, L100.0100 ####[facility] [address] [place], [address] CO2 [Moles/Vol] 22.3 mmol/L Normal 21.0-32.0 [facility] Comment on above: Performed By: #### L 500.2500, L100.0100 ####[facility] [address] [place], [address] Creatinine [Mass/Vol] 1.47 mg/dL High 0.70-1.20 [facility] Comment on above: Performed By: #### L 500.2500, L100.0100 ####[facility] [address] [place], [address] ECRCL 26.31 ml/min Low 50-250 [facility] Comment on above: Performed By: #### L 500.2500, L100.0100 ####[facility] [address] [place], [address] GAP 8 Normal 5-15 [facility] Comment on above: Performed By: #### L 500.2500, L100.0100 ####[facility] [address] [place], [address] GFR/1.73 sq M.predicted among non-blacks MDRD (S/P/Bld) [Vol rate/Area] 40 mL/min/{1.73_m2} Low >60 [facility] Comment on above: Result Comment: mL/m in/1.73m2 CKD-EPI Creatinine Equation (2020) Performed By: #### L 500.2500, L100.0100 ####[facility] [address] [place], [address] Glucose [Mass/Vol] 104 mg/dL High 70-99 [facility] Comment on above: Performed By: #### L 500.2500, L100.0100 ####[facility] [facility] [address] [place], [address] Potassium [Moles/Vol] 4.0 mmol/L Normal 3.3-5.1 [facility] Comment on above: Performed By: #### L 500.2500, L100.0100 ####[facility] [address] [place], [address] Sodium [Moles/Vol] 136 mmol/L Normal 133-145 [facility] Comment on above: Performed By: #### L 500.2500, L100.0100 ####[facility] [address] [place], [address] Urea nitrogen [Mass/Vol] 27 mg/dL High 4-19 [facility] Comment on above: Performed By: #### L 500.2500, L100.0100 ####[facility] [address] [place], [address] Bedside Glucoseon 08-12-2024 FINGERSTICK GLU 61 mg/dL Low 74-106 [facility] Comment on above: Result Comment: LUIZA DIAZ OF PATIENT CARE PER NURSING PROTOCOL Performed By: #### L 501.080 ####[facility] [address] [place], [address] CBC W/Diff, Automatedon - Absolute Lymph 0.51 X10 3/uL Low 0.83-4.51 [facility] Comment on above: Performed By: #### L 500.2500, L100.0100 ####[facility] [address] [place], [address] Absolute Neut 4.0 X10 3/uL Normal 2.0-7.7 [facility] Comment on above: Performed By: #### L 500.2500, L100.0100 ####[facility] [address], [address] Basophils/100 WBC (Bld) 0.4 % Normal 0-1 [facility] Comment on above: Performed By: #### L 500.2500, L100.0100 ####[facility] [address] [place], [address] Eosinophils/100 WBC (Bld) 3.4 % Normal 0-5 [facility] Comment on above: Performed By: #### L 500.2500, L100.0100 ####[facility] [address] [place], [address] Erythrocyte distribution width (RBC) [Ratio] 19.9 % High 11.6-14.6 [facility] Comment on above: Performed By: #### L 500.2500, L100.0100 ####[facility] [address] [place], [address] Hematocrit (Bld) [Volume fraction] 21.7 % Low 37-47 [facility] Comment on above: Performed By: #### L 500.2500, L100.0100 ####[facility] [address] [place], [address] Hemoglobin (Bld) [Mass/Vol] 6.6 g/dL Low 12.0-15.0 [facility] Comment on above: Performed By: #### L 500.2500, L100.0100 ####[facility] [address] [place], [address] IG% 1.600 High 0.0-0.9 [facility] Comment on above: Result Comment: IG% - Immature Granulocytes (promyelocytes, myelocytes andmetamyelocytes) > 1% indicates that a LEFT SHIFT is Present. Performed By: #### L 500.2500, L100.0100 ####[facility] [address] [place], [address] Lymphocytes/100 WBC (Bld) 10.1 % Low 19-41 [facility] Comment on above: Performed By: #### L 500.2500, L100.0100 ####[facility] [address] [place], [address] MCH (RBC) [Entitic mass] 27.2 pg Normal 27.0-32.0 [facility] Comment on above: Performed By: #### L 500.2500, L100.0100 ####[facility] [address] [place], [address] MCHC (RBC) [Mass/Vol] 30.4 g/dL Low 32-36 [facility] Comment on above: Performed By: #### L 500.2500, L100.0100 ####[facility] [address] [place], [address] MCV (RBC) [Entitic vol] 89.3 fL Normal 81-99 [facility] Comment on above: Performed By: #### L 500.2500, L100.0100 ####[facility] [address] [place], [address] Monocytes/100 WBC (Bld) 6.3 % Normal 0-10 [facility] Comment on above: Performed By: #### L 500.2500, L100.0100 ####[facility] [address] [place], [address] Neutrophils/100 WBC (Bld) 78.2 % High 47-70 [facility] Comment on above: Performed By: #### L 500.2500, L100.0100 ####[facility] [address] [place], [address] Nucleated RBC (Bld) [#/Vol] 0 10*3/uL Normal 0-5 [facility] Comment on above: Performed By: #### L 500.2500, L100.0100 ####[facility] [address] [place], [address] Platelet mean volume (Bld) [Entitic vol] 10.1 fL Normal 6.2-12.0 [facility] Comment on above: Performed By: #### L 500.2500, L100.0100 ####[facility] [address] [place], [address] Platelets (Bld) [#/Vol] 107 10*3/uL Low 150-450 [facility] Comment on above: Performed By: #### L 500.2500, L100.0100 ####[facility] [address] [place], [address] RBC (Bld) [#/Vol] 2.43 10*6/uL Low 4.2-5.4 [facility] Comment on above: Performed By: #### L 500.2500, L100.0100 ####[facility] [address] [place], [address] RDW SD 63.5 fl High 35.1-43.9 [facility] Comment on above: Performed By: #### L 500.2500, L100.0100 ####[facility] [address] [place], [address] WBC (Bld) [#/Vol] 5.1 10*3/uL Normal 4.4-11.0 [facility] Comment on above: Performed By: #### L 500.2500, L100.0100 ####[facility] [address] [place], [address] Glucoseon 08-12-2024 Glucose [Mass/Vol] 102 mg/dL High 70-99 [facility] Comment on above: Performed By: #### L 501.0100 ####[facility] [address] [place], [address] Glucose [Mass/Vol] 113 mg/dL High 70-99 [facility] Comment on above: Performed By: #### L 501.0100 ####[facility] [address] [place], [address] Glucose [Mass/Vol] 85 mg/dL Normal 70-99 [facility] Comment on above: Performed By: #### L 501.0100 ####[facility] [address] [place], [address] Glucose [Mass/Vol] 109 mg/dL High 70-99 [facility] Comment on above: Performed By: #### L 501.0100 ####[facility] [address] [place], [address] Type AND Screenon 08-12-2024 Ab SCREEN GEL Positive Abnormal [facility] Comment on above: Order Comment: CMV N EG? NNumber of units to transfuse: 1Reason for Ordering Blood: AcuteAre the blood/blood products to be transfused? YIs the patient having/had surgery? NNWhen ReadyNYA Result Comment: AMENDED REPORT 08/12/24 1425: Antibody Screen previously reported as:Test not performed AMENDED REPORT 08/12/24 1425: Antibody Screen previously reported as:Test not performed Performed By: #### B RC, [id number], BTS, BtABORH, M88930-9 ####[facility] [address] [place], [address] Basic Metabolic Profile (BMP )on 08-11-2024 BUN/CRE 18.6 RATIO Normal 10-20 [facility] Comment on above: Performed By: #### L 100.0100, L500.2500 ####[facility] [address] [place], [address] Calcium [Mass/Vol] 7.4 mg/dL Low 7.6-11.0 [facility] Comment on above: Performed By: #### L 100.0100, L500.2500 ####[facility] [address] [place], [address] Chloride [Moles/Vol] 106 mmol/L Normal 98-108 [facility] Comment on above: Performed By: #### L 100.0100, L500.2500 ####[facility] [address] [place], [address] CO2 [Moles/Vol] 21.3 mmol/L Normal 21.0-32.0 [facility] Comment on above: Performed By: #### L 100.0100, L500.2500 ####[facility] [address] [place], [address] Creatinine [Mass/Vol] 1.39 mg/dL High 0.70-1.20 [facility] Comment on above: Performed By: #### L 100.0100, L500.2500 ####[facility] [address] [place], [address] ECRCL 27.82 ml/min Low 50-250 [facility] Comment on above: Performed By: #### L 100.0100, L500.2500 ####[facility] [address] [place], [address] GAP 9 Normal 5-15 [facility] Comment on above: Performed By: #### L 100.0100, L500.2500 ####[facility] [address] [place], [address] GFR/1.73 sq M.predicted among non-blacks MDRD (S/P/Bld) [Vol rate/Area] 43 mL/min/{1.73_m2} Low >60 [facility] Comment on above: Result Comment: mL/m in/1.73m2 CKD-EPI Creatinine Equation (2020) Performed By: #### L 100.0100, L500.2500 ####[facility] [address] [place], [address] Glucose [Mass/Vol] 114 mg/dL High 70-99 [facility] Comment on above: Performed By: #### L 100.0100, L500.2500 ####[facility] [address] [place], [address] Potassium [Moles/Vol] 3.7 mmol/L Normal 3.3-5.1 [facility] Comment on above: Performed By: #### L 100.0100, L500.2500 ####[facility] [address] [place], [address] Sodium [Moles/Vol] 136 mmol/L Normal 133-145 [facility] Comment on above: Performed By: #### L 100.0100, L500.2500 ####[facility] [address] [place], [address] Urea nitrogen [Mass/Vol] 26 mg/dL High 4-19 [facility] Comment on above: Performed By: #### L 100.0100, L500.2500 ####[facility] [address] [place], [address] CBC W/Diff, Automatedon 07-27 Absolute Lymph 0.53 X10 3/uL Low 0.83-4.51 [facility] Comment on above: Performed By: #### L 100.0100, L500.2500 ####[facility] [address] [place], [address] Absolute Neut 5.3 X10 3/uL Normal 2.0-7.7 [facility] Comment on above: Performed By: #### L 100.0100, L500.2500 ####[facility] [address] [place], [address] Basophils/100 WBC (Bld) 0.6 % Normal 0-1 [facility] Comment on above: Performed By: #### L 100.0100, L500.2500 ####[facility] [address] [place], [address] Eosinophils/100 WBC (Bld) 2.8 % Normal 0-5 [facility] Comment on above: Performed By: #### L 100.0100, L500.2500 ####[facility] [address] [place], [address] Erythrocyte distribution width (RBC) [Ratio] 19.5 % High 11.6-14.6 [facility] Comment on above: Performed By: #### L 100.0100, L500.2500 ####[facility] [address] [place], [address] Hematocrit (Bld) [Volume fraction] 24.7 % Low 37-47 [facility] Comment on above: Performed By: #### L 100.0100, L500.2500 ####[facility] [address] [place], [address] Hemoglobin (Bld) [Mass/Vol] 7.4 g/dL Low 12.0-15.0 [facility] Comment on above: Performed By: #### L 100.0100, L500.2500 ####[facility] [address] [place], [address] IG% 1.400 High 0.0-0.9 [facility] Comment on above: Result Comment: IG% - Immature Granulocytes (promyelocytes, myelocytes andmetamyelocytes) > 1% indicates that a LEFT SHIFT is Present. Performed By: #### L 100.0100, L500.2500 ####[facility] [address] [place], [address] Lymphocytes/100 WBC (Bld) 8.3 % Low 19-41 [facility] Comment on above: Performed By: #### L 100.0100, L500.2500 ####[facility] [address] [place], [address] MCH (RBC) [Entitic mass] 26.9 pg Low 27.0-32.0 [facility] Comment on above: Performed By: #### L 100.0100, L500.2500 ####[facility] [address] [place], [address] MCHC (RBC) [Mass/Vol] 30.0 g/dL Low 32-36 [facility] Comment on above: Performed By: #### L 100.0100, L500.2500 ####[facility] [address] [place], [address] MCV (RBC) [Entitic vol] 89.8 fL Normal 81-99 [facility] Comment on above: Performed By: #### L 100.0100, L500.2500 ####[facility] [address] [place], [address] Monocytes/100 WBC (Bld) 4.8 % Normal 0-10 [facility] Comment on above: Performed By: #### L 100.0100, L500.2500 ####[facility] [address] [place], [address] Neutrophils/100 WBC (Bld) 82.1 % High 47-70 [facility] Comment on above: Performed By: #### L 100.0100, L500.2500 ####[facility] [address] [place], [address] Nucleated RBC (Bld) [#/Vol] 0 10*3/uL Normal 0-5 [facility] Comment on above: Performed By: #### L 100.0100, L500.2500 ####[facility] [address] [place], [address] Platelet mean volume (Bld) [Entitic vol] 10.0 fL Normal 6.2-12.0 [facility] Comment on above: Performed By: #### L 100.0100, L500.2500 ####[facility] [address] [place], [address] Platelets (Bld) [#/Vol] 113 10*3/uL Low 150-450 [facility] Comment on above: Performed By: #### L 100.0100, L500.2500 ####[facility] [address] [place], [address] RBC (Bld) [#/Vol] 2.75 10*6/uL Low 4.2-5.4 [facility] Comment on above: Performed By: #### L 100.0100, L500.2500 ####[facility] [address] [place], [address] RDW SD 62.7 fl High 35.1-43.9 [facility] Comment on above: Performed By: #### L 100.0100, L500.2500 ####[facility] [address] [place], [address] WBC (Bld) [#/Vol] 6.4 10*3/uL Normal 4.4-11.0 [facility] Comment on above: Performed By: #### L 100.0100, L500.2500 ####[facility] [address] [place], [address] Glucoseon 08-11-2024 Glucose [Mass/Vol] 99 mg/dL Normal 70-99 [facility] Comment on above: Performed By: #### L 501.0100 ####[facility] [address] [place], [address] Glucose [Mass/Vol] 99 mg/dL Normal 70-99 [facility] Comment on above: Performed By: #### L 501.0100 ####[facility] [address] [place], [address] Glucose [Mass/Vol] 123 mg/dL High 70-99 [facility] Comment on above: Performed By: #### L 501.0100 ####[facility] [address] [place], [address] Glucose [Mass/Vol] 127 mg/dL High 70-99 [facility] Comment on above: Performed By: #### L 501.0100 ####[facility] [address] [place], [address] Basic Metabolic Profile (BMP )on 08-10-2024 BUN/CRE 18.0 RATIO Normal 10-20 [facility] Comment on above: Performed By: #### L 100.0100, L500.2500 ####[facility] [address] [place], [address] Calcium [Mass/Vol] 7.6 mg/dL Normal 7.6-11.0 [facility] Comment on above: Performed By: #### L 100.0100, L500.2500 ####[facility] [address] [place], [address] Chloride [Moles/Vol] 105 mmol/L Normal 98-108 [facility] Comment on above: Performed By: #### L 100.0100, L500.2500 ####[facility] [address] [place], [address] CO2 [Moles/Vol] 23.2 mmol/L Normal 21.0-32.0 [facility] Comment on above: Performed By: #### L 100.0100, L500.2500 ####[facility] [address] [place], [address] Creatinine [Mass/Vol] 1.17 mg/dL Normal 0.70-1.20 [facility] Comment on above: Performed By: #### L 100.0100, L500.2500 ####[facility] [address] [place], [address] ECRCL 33.06 ml/min Low 50-250 [facility] Comment on above: Performed By: #### L 100.0100, L500.2500 ####[facility] [address] [place], [address] GAP 8 Normal 5-15 [facility] Comment on above: Performed By: #### L 100.0100, L500.2500 ####[facility] [address] [place], [address] GFR/1.73 sq M.predicted among non-blacks MDRD (S/P/Bld) [Vol rate/Area] 53 mL/min/{1.73_m2} Low >60 [facility] Comment on above: Result Comment: mL/m in/1.73m2 CKD-EPI Creatinine Equation (2020) Performed By: #### L 100.0100, L500.2500 ####[facility] [address] [place], [address] Glucose [Mass/Vol] 106 mg/dL High 70-99 [facility] Comment on above: Performed By: #### L 100.0100, L500.2500 ####[facility] [address] [place], [address] Potassium [Moles/Vol] 3.7 mmol/L Normal 3.3-5.1 [facility] Comment on above: Performed By: #### L 100.0100, L500.2500 ####[facility] [address] [place], [address] Sodium [Moles/Vol] 136 mmol/L Normal 133-145 [facility] Comment on above: Performed By: #### L 100.0100, L500.2500 ####[facility] [address] [place], [address] Urea nitrogen [Mass/Vol] 21 mg/dL High 4-19 [facility] Comment on above: Performed By: #### L 100.0100, L500.2500 ####[facility] [address] [place], [address] Bedside Glucoseon 08-10-2024 FINGERSTICK GLU 45 mg/dL Low 74-106 [facility] Comment on above: Result Comment: LUIZA DIAZ OF PATIENT CARE PER NURSING PROTOCOL Performed By: #### L 501.080 ####[facility] [address] [place], [address] CBC W/Diff, Automatedon 07-27 Absolute Lymph 0.58 X10 3/uL Low 0.83-4.51 [facility] Comment on above: Performed By: #### L 100.0100, L500.2500 ####[facility] [address] [place], [address] Absolute Neut 5.6 X10 3/uL Normal 2.0-7.7 [facility] Comment on above: Performed By: #### L 100.0100, L500.2500 ####[facility] [address] [place], [address] Basophils/100 WBC (Bld) 1.1 % High 0-1 [facility] Comment on above: Performed By: #### L 100.0100, L500.2500 ####[facility] [address] [place], [address] Eosinophils/100 WBC (Bld) 3.0 % Normal 0-5 [facility] Comment on above: Performed By: #### L 100.0100, L500.2500 ####[facility] [address] [place], [address] Erythrocyte distribution width (RBC) [Ratio] 19.4 % High 11.6-14.6 [facility] Comment on above: Performed By: #### L 100.0100, L500.2500 ####[facility] [address] [place], [address] Hematocrit (Bld) [Volume fraction] 29.4 % Low 37-47 [facility] Comment on above: Performed By: #### L 100.0100, L500.2500 ####[facility] [address] [place], [address] Hemoglobin (Bld) [Mass/Vol] 8.8 g/dL Low 12.0-15.0 [facility] Comment on above: Performed By: #### L 100.0100, L500.2500 ####[facility] [address] [place], [address] IG% 1.400 High 0.0-0.9 [facility] Comment on above: Result Comment: IG% - Immature Granulocytes (promyelocytes, myelocytes andmetamyelocytes) > 1% indicates that a LEFT SHIFT is Present. Performed By: #### L 100.0100, L500.2500 ####[facility] [address] [place], [address] Lymphocytes/100 WBC (Bld) 8.3 % Low 19-41 [facility] Comment on above: Performed By: #### L 100.0100, L500.2500 ####[facility] [address] [place], [address] MCH (RBC) [Entitic mass] 26.8 pg Low 27.0-32.0 [facility] Comment on above: Performed By: #### L 100.0100, L500.2500 ####[facility] [address] [place], [address] MCHC (RBC) [Mass/Vol] 29.9 g/dL Low 32-36 [facility] Comment on above: Performed By: #### L 100.0100, L500.2500 ####[facility] [address] [place], [address] MCV (RBC) [Entitic vol] 89.6 fL Normal 81-99 [facility] Comment on above: Performed By: #### L 100.0100, L500.2500 ####[facility] [address] [place], [address] Monocytes/100 WBC (Bld) 5.2 % Normal 0-10 [facility] Comment on above: Performed By: #### L 100.0100, L500.2500 ####[facility] [address] [place], [address] Neutrophils/100 WBC (Bld) 81.0 % High 47-70 [facility] Comment on above: Performed By: #### L 100.0100, L500.2500 ####[facility] [address] [place], [address] Nucleated RBC (Bld) [#/Vol] 0 10*3/uL Normal 0-5 [facility] Comment on above: Performed By: #### L 100.0100, L500.2500 ####[facility] [address] [place], [address] Platelet mean volume (Bld) [Entitic vol] 10.0 fL Normal 6.2-12.0 [facility] Comment on above: Performed By: #### L 100.0100, L500.2500 ####[facility] [address] [place], [address] Platelets (Bld) [#/Vol] 125 10*3/uL Low 150-450 [facility] Comment on above: Performed By: #### L 100.0100, L500.2500 ####[facility] [address] [place], [address] RBC (Bld) [#/Vol] 3.28 10*6/uL Low 4.2-5.4 [facility] Comment on above: Performed By: #### L 100.0100, L500.2500 ####[facility] [address] [place], [address] RDW SD 63.1 fl High 35.1-43.9 [facility] Comment on above: Performed By: #### L 100.0100, L500.2500 ####[facility] [address] [place], [address] WBC (Bld) [#/Vol] 7.0 10*3/uL Normal 4.4-11.0 [facility] Comment on above: Performed By: #### L 100.0100, L500.2500 ####[facility] [address] [place], [address] Glucoseon 08-10-2024 Glucose [Mass/Vol] 139 mg/dL High 70- [facility] Comment on above: Performed By: #### L 501.0100 ####[facility] [address] [place], [address] Glucose [Mass/Vol] 135 mg/dL High 70- [facility] Comment on above: Performed By: #### L 501.0100 ####[facility] [address] [place], [address] Basic Metabolic Profile (BMP )on 08-09-2024 BUN/CRE 20.7 RATIO High 10-20 [facility] Comment on above: Performed By: #### L 100.0100, L500.2500 ####[facility] [address] [place], [address] Calcium [Mass/Vol] 7.4 mg/dL Low 7.6-11.0 [facility] Comment on above: Performed By: #### L 100.0100, L500.2500 ####[facility] [address] [place], [address] Chloride [Moles/Vol] 105 mmol/L Normal 98-108 [facility] Comment on above: Performed By: #### L 100.0100, L500.2500 ####[facility] [address] [place], [address] CO2 [Moles/Vol] 20.7 mmol/L Low 21.0-32.0 [facility] Comment on above: Performed By: #### L 100.0100, L500.2500 ####[facility] [address] [place], [address] Creatinine [Mass/Vol] 1.43 mg/dL High 0.70-1.20 [facility] Comment on above: Performed By: #### L 100.0100, L500.2500 ####[facility] [address] [place], [address] ECRCL 27.63 ml/min Low 50-250 [facility] Comment on above: Performed By: #### L 100.0100, L500.2500 ####[facility] [address] [place], [address] GAP 9 Normal 5-15 [facility] Comment on above: Performed By: #### L 100.0100, L500.2500 ####[facility] [address] [place], [address] GFR/1.73 sq M.predicted among non-blacks MDRD (S/P/Bld) [Vol rate/Area] 41 mL/min/{1.73_m2} Low >60 [facility] Comment on above: Result Comment: mL/m in/1.73m2 CKD-EPI Creatinine Equation (2021) Performed By: #### L 100.0100, L500.2500 ####[facility] [address] [place], [address] Glucose [Mass/Vol] 83 mg/dL Normal 70-99 [facility] Comment on above: Performed By: #### L 100.0100, L500.2500 ####[facility] [address] [place], [address] Potassium [Moles/Vol] 3.9 mmol/L Normal 3.3-5.1 [facility] Comment on above: Performed By: #### L 100.0100, L500.2500 ####[facility] [address] [place], [address] Sodium [Moles/Vol] 134 mmol/L Normal 133-145 [facility] Comment on above: Performed By: #### L 100.0100, L500.2500 ####[facility] [address] [place], [address] Urea nitrogen [Mass/Vol] 30 mg/dL High 4-19 [facility] Comment on above: Performed By: #### L 100.0100, L500.2500 ####[facility] [address] [place], [address] Bedside Glucoseon 08-09-2024 FINGERSTICK GLU 77 mg/dL Normal 74-106 [facility] Comment on above: Result Comment: LUIZA DIAZ OF PATIENT CARE PER NURSING PROTOCOL Performed By: #### L 501.080 ####[facility] [address] [place], [address] CBC W/Diff, Automatedon 07-27 Absolute Lymph 0.38 X10 3/uL Low 0.83-4.51 [facility] Comment on above: Performed By: #### L 100.0100, L500.2500 ####[facility] [address] [place], [address] Absolute Neut 5.4 X10 3/uL Normal 2.0-7.7 [facility] Comment on above: Performed By: #### L 100.0100, L500.2500 ####[facility] [address] [place], [address] Basophils/100 WBC (Bld) 0.8 % Normal 0-1 [facility] Comment on above: Performed By: #### L 100.0100, L500.2500 ####[facility] [address] [place], [address] Eosinophils/100 WBC (Bld) 1.9 % Normal 0-5 [facility] Comment on above: Performed By: #### L 100.0100, L500.2500 ####[facility] [address] [place], [address] Erythrocyte distribution width (RBC) [Ratio] 18.8 % High 11.6-14.6 [facility] Comment on above: Performed By: #### L 100.0100, L500.2500 ####[facility] [address] [place], [address] Hematocrit (Bld) [Volume fraction] 27.4 % Low 37-47 [facility] Comment on above: Performed By: #### L 100.0100, L500.2500 ####[facility] [address] [place], [address] Hemoglobin (Bld) [Mass/Vol] 8.3 g/dL Low 12.0-15.0 [facility] Comment on above: Performed By: #### L 100.0100, L500.2500 ####[facility] [address] [place], [address] IG% 2.000 High 0.0-0.9 [facility] Comment on above: Result Comment: IG% - Immature Granulocytes (promyelocytes, myelocytes andmetamyelocytes) > 1% indicates that a LEFT SHIFT is Present. Performed By: #### L 100.0100, L500.2500 ####[facility] [address] [place], [address] Lymphocytes/100 WBC (Bld) 6.0 % Low 19-41 [facility] Comment on above: Performed By: #### L 100.0100, L500.2500 ####[facility] [address] [place], [address] MCH (RBC) [Entitic mass] 26.7 pg Low 27.0-32.0 [facility] Comment on above: Performed By: #### L 100.0100, L500.2500 ####[facility] [address] [place], [address] MCHC (RBC) [Mass/Vol] 30.3 g/dL Low 32-36 [facility] Comment on above: Performed By: #### L 100.0100, L500.2500 ####[facility] [address] [place], [address] MCV (RBC) [Entitic vol] 88.1 fL Normal 81-99 [facility] Comment on above: Performed By: #### L 100.0100, L500.2500 ####[facility] [address] [place], [address] Monocytes/100 WBC (Bld) 5.0 % Normal 0-10 [facility] Comment on above: Performed By: #### L 100.0100, L500.2500 ####[facility] [address] [place], [address] Neutrophils/100 WBC (Bld) 84.3 % High 47-70 [facility] Comment on above: Performed By: #### L 100.0100, L500.2500 ####[facility] [address] [place], [address] Nucleated RBC (Bld) [#/Vol] 0 10*3/uL Normal 0-5 [facility] Comment on above: Performed By: #### L 100.0100, L500.2500 ####[facility] [address] [place], [address] Platelet mean volume (Bld) [Entitic vol] 10.3 fL Normal 6.2-12.0 [facility] Comment on above: Performed By: #### L 100.0100, L500.2500 ####[facility] [address] [place], [address] Platelets (Bld) [#/Vol] 111 10*3/uL Low 150-450 [facility] Comment on above: Performed By: #### L 100.0100, L500.2500 ####[facility] [address] [place], [address] RBC (Bld) [#/Vol] 3.11 10*6/uL Low 4.2-5.4 [facility] Comment on above: Performed By: #### L 100.0100, L500.2500 ####[facility] [address] [place], [address] RDW SD 60.7 fl High 35.1-43.9 [facility] Comment on above: Performed By: #### L 100.0100, L500.2500 ####[facility] [address] [place], [address] WBC (Bld) [#/Vol] 6.4 10*3/uL Normal 4.4-11.0 [facility] Comment on above: Performed By: #### L 100.0100, L500.2500 ####[facility] [address] [place], [address] Glucoseon 08-09-2024 Glucose [Mass/Vol] 108 mg/dL High 70-99 [facility] Comment on above: Order Comment: Comme nts: blood sugar monitoring, poor peripheral perfusion Performed By: #### L 501.0100 ####[facility] [address] [place], [address] Glucose [Mass/Vol] 100 mg/dL High 70-99 [facility] Comment on above: Order Comment: Comme nts: Glucose mon q6h, poor perfusion for finger stick Performed By: #### L 501.0100 ####[facility] [address] [place], [address] Abdomen/Pelvis WITH Contrast on 08-08-2024 Abdomen/Pelvis WITH Contrast Normal [facility] Basic Metabolic Profile (BMP )on 08-08-2024 BUN/CRE 24.5 RATIO High 10-20 [facility] Comment on above: Performed By: #### L 100.0100, L500.2500 ####[facility] [address] [place], [address] Calcium [Mass/Vol] 7.7 mg/dL Normal 7.6-11.0 [facility] Comment on above: Performed By: #### L 100.0100, L500.2500 ####[facility] [address] [place], [address] Chloride [Moles/Vol] 104 mmol/L Normal 98-108 [facility] Comment on above: Performed By: #### L 100.0100, L500.2500 ####[facility] [address] [place], [address] CO2 [Moles/Vol] 22.6 mmol/L Normal 21.0-32.0 [facility] Comment on above: Performed By: #### L 100.0100, L500.2500 ####[facility] [address] [place], [address] Creatinine [Mass/Vol] 1.31 mg/dL High 0.70-1.20 [facility] Comment on above: Performed By: #### L 100.0100, L500.2500 ####[facility] [address] [place], [address] ECRCL 30.16 ml/min Low 50-250 [facility] Comment on above: Performed By: #### L 100.0100, L500.2500 ####[facility] [address] [place], [address] GAP 9 Normal 5-15 [facility] Comment on above: Performed By: #### L 100.0100, L500.2500 ####[facility] [address] [place], [address] GFR/1.73 sq M.predicted among non-blacks MDRD (S/P/Bld) [Vol rate/Area] 46 mL/min/{1.73_m2} Low >60 [facility] Comment on above: Result Comment: mL/m in/1.73m2 CKD-EPI Creatinine Equation (2020) Performed By: #### L 100.0100, L500.2500 ####[facility] [address] [place], [address] Glucose [Mass/Vol] 89 mg/dL Normal 70-99 [facility] Comment on above: Performed By: #### L 100.0100, L500.2500 ####[facility] [address] [place], [address] Potassium [Moles/Vol] 3.8 mmol/L Normal 3.3-5.1 [facility] Comment on above: Performed By: #### L 100.0100, L500.2500 ####[facility] [address] [place], [address] Sodium [Moles/Vol] 135 mmol/L Normal 133-145 [facility] Comment on above: Performed By: #### L 100.0100, L500.2500 ####[facility] [address] [place], [address] Urea nitrogen [Mass/Vol] 32 mg/dL High 4-19 [facility] Comment on above: Performed By: #### L 100.0100, L500.2500 ####[facility] [address] [place], [address] Bedside Glucoseon 08-08-2024 FINGERSTICK GLU 84 mg/dL Normal 74-106 [facility] Comment on above: Result Comment: LUIZA GEMENT OF PATIENT CARE PER NURSING PROTOCOL Performed By: #### L 501.080 ####[facility] [address] [place], [address] FINGERSTICK GLU 136 mg/dL High 74-106 [facility] Comment on above: Result Comment: LUIZA GEMENT OF PATIENT CARE PER NURSING PROTOCOL Performed By: #### L 501.080 ####[facility] [address] [place], [address] FINGERSTICK GLU 53 mg/dL Low 74-106 [facility] Comment on above: Result Comment: LUIZA GEMENT OF PATIENT CARE PER NURSING PROTOCOL Performed By: #### L 501.080 ####[facility] [address] [place], [address] FINGERSTICK GLU 55 mg/dL Low 74-106 [facility] Comment on above: Result Comment: LUIZA GEMENT OF PATIENT CARE PER NURSING PROTOCOL Performed By: #### L 501.080 ####[facility] [address] [place], [address] CBC W/Diff, Automatedon 07-27 Absolute Lymph 0.67 X10 3/uL Low 0.83-4.51 [facility] Comment on above: Performed By: #### L 100.0100, L500.2500 ####[facility] [address] [place], [address] Absolute Neut 7.2 X10 3/uL Normal 2.0-7.7 [facility] Comment on above: Performed By: #### L 100.0100, L500.2500 ####[facility] [address] [place], [address] Basophils/100 WBC (Bld) 0.6 % Normal 0-1 [facility] Comment on above: Performed By: #### L 100.0100, L500.2500 ####[facility] [address] [place], [address] Eosinophils/100 WBC (Bld) 1.2 % Normal 0-5 [facility] Comment on above: Performed By: #### L 100.0100, L500.2500 ####[facility] [address] [place], [address] Erythrocyte distribution width (RBC) [Ratio] 18.6 % High 11.6-14.6 [facility] Comment on above: Performed By: #### L 100.0100, L500.2500 ####[facility] [address] [place], [address] Hematocrit (Bld) [Volume fraction] 27.8 % Low 37-47 [facility] Comment on above: Performed By: #### L 100.0100, L500.2500 ####[facility] [address] [place], [address] Hemoglobin (Bld) [Mass/Vol] 8.6 g/dL Low 12.0-15.0 [facility] Comment on above: Performed By: #### L 100.0100, L500.2500 ####[facility] [address] [place], [address] IG% 1.400 High 0.0-0.9 [facility] Comment on above: Result Comment: IG% - Immature Granulocytes (promyelocytes, myelocytes andmetamyelocytes) > 1% indicates that a LEFT SHIFT is Present. Performed By: #### L 100.0100, L500.2500 ####[facility] [address] [place], [address] Lymphocytes/100 WBC (Bld) 7.9 % Low 19-41 [facility] Comment on above: Performed By: #### L 100.0100, L500.2500 ####[facility] [address] [place], [address] MCH (RBC) [Entitic mass] 27.1 pg Normal 27.0-32.0 [facility] Comment on above: Performed By: #### L 100.0100, L500.2500 ####[facility] [address] [place], [address] MCHC (RBC) [Mass/Vol] 30.9 g/dL Low 32-36 [facility] Comment on above: Performed By: #### L 100.0100, L500.2500 ####[facility] [address] [place], [address] MCV (RBC) [Entitic vol] 87.7 fL Normal 81-99 [facility] Comment on above: Performed By: #### L 100.0100, L500.2500 ####[facility] [address] [place], [address] Monocytes/100 WBC (Bld) 3.8 % Normal 0-10 [facility] Comment on above: Performed By: #### L 100.0100, L500.2500 ####[facility] [address] [place], [address] Neutrophils/100 WBC (Bld) 85.1 % High 47-70 [facility] Comment on above: Performed By: #### L 100.0100, L500.2500 ####[facility] [address] [place], [address] Nucleated RBC (Bld) [#/Vol] 0 10*3/uL Normal 0-5 [facility] Comment on above: Performed By: #### L 100.0100, L500.2500 ####[facility] [address] [place], [address] Platelet mean volume (Bld) [Entitic vol] 9.5 fL Normal 6.2-12.0 [facility] Comment on above: Performed By: #### L 100.0100, L500.2500 ####[facility] [address] [place], [address] Platelets (Bld) [#/Vol] 147 10*3/uL Low 150-450 [facility] Comment on above: Performed By: #### L 100.0100, L500.2500 ####[facility] [address] [place], [address] RBC (Bld) [#/Vol] 3.17 10*6/uL Low 4.2-5.4 [facility] Comment on above: Performed By: #### L 100.0100, L500.2500 ####[facility] [address] [place], [address] RDW SD 59.1 fl High 35.1-43.9 [facility] Comment on above: Performed By: #### L 100.0100, L500.2500 ####[facility] [address] [place], [address] WBC (Bld) [#/Vol] 8.5 10*3/uL Normal 4.4-11.0 [facility] Comment on above: Performed By: #### L 100.0100, L500.2500 ####[facility] [address] [place], [address] L3410.9998on 08-08-2024 [facility] Misc. COMMENT Normal . [facility] Comment on above: Order Comment: SERUM /[id number] C Result Comment: Test Ordered: [id number] Cystatin CCystatin C 2.88 [H ] mg/L CB Reference Range: 0.72-1.16Performed at: - [facility] [address] [place], [place] [id number] Director: Manjinder Babb PhD, Phone: [phone] Performed By: #### L 3410.9998 ####[facility] [address] [place], [address] Basic Metabolic Profile (BMP )on 08-07-2024 BUN/CRE 29.1 RATIO High 10-20 [facility] Comment on above: Performed By: #### L 100.0100, L500.2500 ####[facility] [address] [place], [address] Calcium [Mass/Vol] 7.5 mg/dL Low 7.6-11.0 [facility] Comment on above: Performed By: #### L 100.0100, L500.2500 ####[facility] [address] [place], [address] Chloride [Moles/Vol] 103 mmol/L Normal 98-108 [facility] Comment on above: Performed By: #### L 100.0100, L500.2500 ####[facility] [address] [place], [address] CO2 [Moles/Vol] 19.3 mmol/L Low 21.0-32.0 [facility] Comment on above: Performed By: #### L 100.0100, L500.2500 ####[facility] [address] [place], [address] Creatinine [Mass/Vol] 1.50 mg/dL High 0.70-1.20 [facility] Comment on above: Performed By: #### L 100.0100, L500.2500 ####[facility] [address] [place], [address] ECRCL 27.32 ml/min Low 50-250 [facility] Comment on above: Performed By: #### L 100.0100, L500.2500 ####[facility] [address] [place], [address] GAP 11 Normal 5-15 [facility] Comment on above: Performed By: #### L 100.0100, L500.2500 ####[facility] [address] [place], [address] GFR/1.73 sq M.predicted among non-blacks MDRD (S/P/Bld) [Vol rate/Area] 39 mL/min/{1.73_m2} Low >60 [facility] Comment on above: Result Comment: mL/m in/1.73m2 CKD-EPI Creatinine Equation (2020) Performed By: #### L 100.0100, L500.2500 ####[facility] [address] [place], [address] Glucose [Mass/Vol] 84 mg/dL Normal 70-99 [facility] Comment on above: Performed By: #### L 100.0100, L500.2500 ####[facility] [address] [place], [address] Potassium [Moles/Vol] 3.7 mmol/L Normal 3.3-5.1 [facility] Comment on above: Performed By: #### L 100.0100, L500.2500 ####[facility] [address] [place], [address] Sodium [Moles/Vol] 133 mmol/L Normal 133-145 [facility] Comment on above: Performed By: #### L 100.0100, L500.2500 ####[facility] [address] [place], [address] Urea nitrogen [Mass/Vol] 44 mg/dL High 4-19 [facility] Comment on above: Performed By: #### L 100.0100, L500.2500 ####[facility] [address] [place], [address] Bedside Glucoseon 08-07-2024 FINGERSTICK GLU 130 mg/dL High 74-106 [facility] Comment on above: Result Comment: LUIZA GEMENT OF PATIENT CARE PER NURSING PROTOCOL Performed By: #### L 501.080 ####[facility] [address] [place], [address] FINGERSTICK GLU 95 mg/dL Normal 74-106 [facility] Comment on above: Result Comment: LUIZA GEMENT OF PATIENT CARE PER NURSING PROTOCOL Performed By: #### L 501.080 ####[facility] [address] [place], [address] FINGERSTICK GLU 76 mg/dL Normal 74-106 [facility] Comment on above: Result Comment: LUIZA GEMENT OF PATIENT CARE PER NURSING PROTOCOL Performed By: #### L 501.080 ####[facility] [address] [place], [address] FINGERSTICK GLU 79 mg/dL Normal 74-106 [facility] Comment on above: Result Comment: LUIZA GEMENT OF PATIENT CARE PER NURSING PROTOCOL Performed By: #### L 501.080 ####[facility] [address] [place], [address] CBC W/Diff, Automatedon 07-27 Absolute Lymph 0.82 X10 3/uL Low 0.83-4.51 [facility] Comment on above: Performed By: #### L 100.0100, L500.2500 ####[facility] [address] [place], [address] Absolute Neut 9.6 X10 3/uL High 2.0-7.7 [facility] Comment on above: Performed By: #### L 100.0100, L500.2500 ####[facility] [address] [place], [address] Basophils/100 WBC (Bld) 0.5 % Normal 0-1 [facility] Comment on above: Performed By: #### L 100.0100, L500.2500 ####[facility] [address] [place], [address] Eosinophils/100 WBC (Bld) 1.3 % Normal 0-5 [facility] Comment on above: Performed By: #### L 100.0100, L500.2500 ####[facility] [address] [place], [address] Erythrocyte distribution width (RBC) [Ratio] 18.6 % High 11.6-14.6 [facility] Comment on above: Performed By: #### L 100.0100, L500.2500 ####[facility] [address] [place], [address] Hematocrit (Bld) [Volume fraction] 29.4 % Low 37-47 [facility] Comment on above: Performed By: #### L 100.0100, L500.2500 ####[facility] [address] [place], [address] Hemoglobin (Bld) [Mass/Vol] 9.1 g/dL Low 12.0-15.0 [facility] Comment on above: Performed By: #### L 100.0100, L500.2500 ####[facility] [address] [place], [address] IG% 2.100 High 0.0-0.9 [facility] Comment on above: Result Comment: IG% - Immature Granulocytes (promyelocytes, myelocytes andmetamyelocytes) > 1% indicates that a LEFT SHIFT is Present. Performed By: #### L 100.0100, L500.2500 ####[facility] [address] [place], [address] Lymphocytes/100 WBC (Bld) 7.3 % Low 19-41 [facility] Comment on above: Performed By: #### L 100.0100, L500.2500 ####[facility] [address] [place], [address] MCH (RBC) [Entitic mass] 27.1 pg Normal 27.0-32.0 [facility] Comment on above: Performed By: #### L 100.0100, L500.2500 ####[facility] [address] [place], [address] MCHC (RBC) [Mass/Vol] 31.0 g/dL Low 32-36 [facility] Comment on above: Performed By: #### L 100.0100, L500.2500 ####[facility] [address] [place], [address] MCV (RBC) [Entitic vol] 87.5 fL Normal 81-99 [facility] Comment on above: Performed By: #### L 100.0100, L500.2500 ####[facility] [address] [place], [address] Monocytes/100 WBC (Bld) 3.5 % Normal 0-10 [facility] Comment on above: Performed By: #### L 100.0100, L500.2500 ####[facility] [address] [place], [address] Neutrophils/100 WBC (Bld) 85.3 % High 47-70 [facility] Comment on above: Performed By: #### L 100.0100, L500.2500 ####[facility] [address] [place], [address] Nucleated RBC (Bld) [#/Vol] 0 10*3/uL Normal 0-5 [facility] Comment on above: Performed By: #### L 100.0100, L500.2500 ####[facility] [address] [place], [address] Platelet mean volume (Bld) [Entitic vol] 9.8 fL Normal 6.2-12.0 [facility] Comment on above: Performed By: #### L 100.0100, L500.2500 ####[facility] [address] [place], [address] Platelets (Bld) [#/Vol] 163 10*3/uL Normal 150-450 [facility] Comment on above: Performed By: #### L 100.0100, L500.2500 ####[facility] [address] [place], [address] RBC (Bld) [#/Vol] 3.36 10*6/uL Low 4.2-5.4 [facility] Comment on above: Performed By: #### L 100.0100, L500.2500 ####[facility] [address] [place], [address] RDW SD 57.8 fl High 35.1-43.9 [facility] Comment on above: Performed By: #### L 100.0100, L500.2500 ####[facility] [address] [place], [address] WBC (Bld) [#/Vol] 11.2 10*3/uL High 4.4-11.0 [facility] Comment on above: Performed By: #### L 100.0100, L500.2500 ####[facility] [address] [place], [address] CDIFF (PCR)on 08-07-2024 CDIFF Normal [facility] Comment on above: Performed By: #### M 100.4896, M100.0013 ####[facility] [address] [place], [address] Clostridium Diff Toxin/Agon 08-07-2024 CDIFF (EIA) Normal [facility] Comment on above: Performed By: #### M 100.6796, M100.6795 ####[facility] [address] [place], [address] Clostridium difficile detect ion by polymerase chain reactionOrdered By: Judd Galvin on 08-07-2024 C. difficile DNA MOISES+probe Ql (Unsp spec) [facility] Glucoseon 08-07-2024 Glucose [Mass/Vol] 127 mg/dL High 70-99 [facility] Comment on above: Order Comment: Comme nts: hypoglycemia Performed By: #### L 501.0100 ####[facility] [address] [place], [address] Stool Clostridium difficile detectionOrdered By: Judd Galvin on 08-07-2024 C. difficile Ql (Stl) [facility] Abdomen/Pelvis WITH Contrast on 08-06-2024 Abdomen/Pelvis WITH Contrast Normal [facility] Basic Metabolic Profile (BMP )on 08-06-2024 BUN/CRE 29.8 RATIO High 10-20 [facility] Comment on above: Performed By: #### L 100.0100, L500.2500 ####[facility] [address] [place], [address] Calcium [Mass/Vol] 7.5 mg/dL Low 7.6-11.0 [facility] Comment on above: Performed By: #### L 100.0100, L500.2500 ####[facility] [address] [place], [address] Chloride [Moles/Vol] 102 mmol/L Normal 98-108 [facility] Comment on above: Performed By: #### L 100.0100, L500.2500 ####[facility] [address] [place], [address] CO2 [Moles/Vol] 21.2 mmol/L Normal 21.0-32.0 [facility] Comment on above: Performed By: #### L 100.0100, L500.2500 ####[facility] [address] [place], [address] Creatinine [Mass/Vol] 1.27 mg/dL High 0.70-1.20 [facility] Comment on above: Performed By: #### L 100.0100, L500.2500 ####[facility] [address] [place], [address] ECRCL 32.27 ml/min Low 50-250 [facility] Comment on above: Performed By: #### L 100.0100, L500.2500 ####[facility] [address] [place], [address] GAP 10 Normal 5-15 [facility] Comment on above: Performed By: #### L 100.0100, L500.2500 ####[facility] [address] [place], [address] GFR/1.73 sq M.predicted among non-blacks MDRD (S/P/Bld) [Vol rate/Area] 48 mL/min/{1.73_m2} Low >60 [facility] Comment on above: Result Comment: mL/m in/1.73m2 CKD-EPI Creatinine Equation (2020) Performed By: #### L 100.0100, L500.2500 ####[facility] [address] [place], [address] Glucose [Mass/Vol] 94 mg/dL Normal 70-99 [facility] Comment on above: Performed By: #### L 100.0100, L500.2500 ####[facility] [address] [place], [address] Potassium [Moles/Vol] 3.7 mmol/L Normal 3.3-5.1 [facility] Comment on above: Performed By: #### L 100.0100, L500.2500 ####[facility] [address] [place], [address] Sodium [Moles/Vol] 133 mmol/L Normal 133-145 [facility] Comment on above: Performed By: #### L 100.0100, L500.2500 ####[facility] [address] [place], [address] Urea nitrogen [Mass/Vol] 38 mg/dL High 4-19 [facility] Comment on above: Performed By: #### L 100.0100, L500.2500 ####[facility] [address] [place], [address] BUN Normal -19 [facility] Comment on above: Result Comment: Canc elled via OM: Order cancelled - Patient discharged Performed By: #### L 100.0100, L500.2500 ####[facility] [address] [place], [address] BUN/CRE Normal 10-20 [facility] Comment on above: Result Comment: Canc elled via OM: Order cancelled - Patient discharged Performed By: #### L 100.0100, L500.2500 ####[facility] [address] [place], [address] Calcium Normal 7.6-11.0 [facility] Comment on above: Result Comment: Canc elled via OM: Order cancelled - Patient discharged Performed By: #### L 100.0100, L500.2500 ####[facility] [address] [place], [address] CL Normal 98-107 [facility] Comment on above: Result Comment: Canc elled via OM: Order cancelled - Patient discharged Performed By: #### L 100.0100, L500.2500 ####[facility] [address] [place], [address] CO2 Normal 21.0-32.0 [facility] Comment on above: Result Comment: Canc elled via OM: Order cancelled - Patient discharged Performed By: #### L 100.0100, L500.2500 ####[facility] [address] [place], [address] CREAT,SERUM Normal 0.70-1.20 [facility] Comment on above: Result Comment: Canc elled via OM: Order cancelled - Patient discharged Performed By: #### L 100.0100, L500.2500 ####[facility] [address] [place], [address] eGFR Normal >60 [facility] Comment on above: Result Comment: Canc elled via OM: Order cancelled - Patient discharged Performed By: #### L 100.0100, L500.2500 ####[facility] [address] [place], [address] GAP Normal 5-15 [facility] Comment on above: Result Comment: Canc elled via OM: Order cancelled - Patient discharged Performed By: #### L 100.0100, L500.2500 ####[facility] [address] [place], [address] GLU Normal 70-99 [facility] Comment on above: Result Comment: Canc elled via OM: Order cancelled - Patient discharged Performed By: #### L 100.0100, L500.2500 ####[facility] [address] [place], [address] Potassium Normal 3.5-5.1 [facility] Comment on above: Result Comment: Canc elled via OM: Order cancelled - Patient discharged Performed By: #### L 100.0100, L500.2500 ####[facility] [address] [place], [address] Basic Metabolic Profile (BMP) Normal 136-145 [facility] Comment on above: Result Comment: Canc elled via OM: Order cancelled - Patient discharged Performed By: #### L 100.0100, L500.2500 ####[facility] [address] [place], [address] Bedside Glucoseon 08-06-2024 FINGERSTICK GLU 108 mg/dL High 74-106 [facility] Comment on above: Result Comment: LUIZA GEMENT OF PATIENT CARE PER NURSING PROTOCOL Performed By: #### L 501.080 ####[facility] [address] [place], [address] FINGERSTICK GLU 77 mg/dL Normal 74-106 [facility] Comment on above: Result Comment: LUIZA GEMENT OF PATIENT CARE PER NURSING PROTOCOL Performed By: #### L 501.080 ####[facility] [address] [place], [address] FINGERSTICK GLU 73 mg/dL Low 74-106 [facility] Comment on above: Result Comment: LUIZA GEMENT OF PATIENT CARE PER NURSING PROTOCOL Performed By: #### L 501.080 ####[facility] [address] [place], [address] FINGERSTICK GLU 71 mg/dL Low 74-106 [facility] Comment on above: Result Comment: LUIZA GEMENT OF PATIENT CARE PER NURSING PROTOCOL Performed By: #### L 501.080 ####[facility] [address] [place], [address] FINGERSTICK GLU 93 mg/dL Normal 74-106 [facility] Comment on above: Result Comment: LUIZA GEMENT OF PATIENT CARE PER NURSING PROTOCOL Performed By: #### L 501.080 ####[facility] [address] [place], [address] FINGERSTICK GLU 74 mg/dL Normal 74-106 [facility] Comment on above: Result Comment: LUIZA GEMENT OF PATIENT CARE PER NURSING PROTOCOL Performed By: #### L 501.080 ####[facility] [address] [place], [address] CBC W/Diff, Automatedon - Absolute Neut Normal 2.0-7.7 [facility] Comment on above: Result Comment: Canc elled via OM: Order cancelled - Patient discharged Performed By: #### L 100.0100, L500.2500 ####[facility] [address] [place], [address] HCT Normal 37-47 [facility] Comment on above: Result Comment: Canc elled via OM: Order cancelled - Patient discharged Performed By: #### L 100.0100, L500.2500 ####[facility] [address] [place], [address] HGB Normal 12.0-15.0 [facility] Comment on above: Result Comment: Canc elled via OM: Order cancelled - Patient discharged Performed By: #### L 100.0100, L500.2500 ####[facility] [address] [place], [address] MCH Normal 27.0-32.0 [facility] Comment on above: Result Comment: Canc elled via OM: Order cancelled - Patient discharged Performed By: #### L 100.0100, L500.2500 ####[facility] [address] [place], [address] MCHC Normal 32-36 [facility] Comment on above: Result Comment: Canc elled via OM: Order cancelled - Patient discharged Performed By: #### L 100.0100, L500.2500 ####[facility] [address] [place], [address] MCV Normal 81-99 [facility] Comment on above: Result Comment: Canc elled via OM: Order cancelled - Patient discharged Performed By: #### L 100.0100, L500.2500 ####[facility] [address] [place], [address] NEUT% Normal 47-70 [facility] Comment on above: Result Comment: Canc elled via OM: Order cancelled - Patient discharged Performed By: #### L 100.0100, L500.2500 ####[facility] [address] [place], [address] PLT Normal 150-450 [facility] Comment on above: Result Comment: Canc elled via OM: Order cancelled - Patient discharged Performed By: #### L 100.0100, L500.2500 ####[facility] [address] [place], [address] RBC Normal 4.2-5.4 [facility] Comment on above: Result Comment: Canc elled via OM: Order cancelled - Patient discharged Performed By: #### L 100.0100, L500.2500 ####[facility] [address] [place], [address] RDW CV Normal 11.6-14.6 [facility] Comment on above: Result Comment: Canc elled via OM: Order cancelled - Patient discharged Performed By: #### L 100.0100, L500.2500 ####[facility] [address] [place], [address] RDW SD Normal 35.1-43.9 [facility] Comment on above: Result Comment: Canc elled via OM: Order cancelled - Patient discharged Performed By: #### L 100.0100, L500.2500 ####[facility] [address] [place], [address] WBC Normal 4.4-11.0 [facility] Comment on above: Result Comment: Canc elled via OM: Order cancelled - Patient discharged Performed By: #### L 100.0100, L500.2500 ####[facility] [address] [place], [address] Absolute Lymph 1.00 X10 3/uL Normal 0.83-4.51 [facility] Comment on above: Performed By: #### L 100.0100, L500.2500 ####[facility] [address] [place], [address] Absolute Neut 6.5 X10 3/uL Normal 2.0-7.7 [facility] Comment on above: Performed By: #### L 100.0100, L500.2500 ####[facility] [address] [place], [address] Basophils/100 WBC (Bld) 0.9 % Normal 0-1 [facility] Comment on above: Performed By: #### L 100.0100, L500.2500 ####[facility] [address] [place], [address] Eosinophils/100 WBC (Bld) 1.5 % Normal 0-5 [facility] Comment on above: Performed By: #### L 100.0100, L500.2500 ####[facility] [address] [place], [address] Erythrocyte distribution width (RBC) [Ratio] 17.7 % High 11.6-14.6 [facility] Comment on above: Performed By: #### L 100.0100, L500.2500 ####[facility] [address] [place], [address] Hematocrit (Bld) [Volume fraction] 26.8 % Low 37-47 [facility] Comment on above: Performed By: #### L 100.0100, L500.2500 ####[facility] [address] [place], [address] Hemoglobin (Bld) [Mass/Vol] 8.2 g/dL Low 12.0-15.0 [facility] Comment on above: Performed By: #### L 100.0100, L500.2500 ####[facility] [address] [place], [address] IG% 2.600 High 0.0-0.9 [facility] Comment on above: Result Comment: IG% - Immature Granulocytes (promyelocytes, myelocytes andmetamyelocytes) > 1% indicates that a LEFT SHIFT is Present. Performed By: #### L 100.0100, L500.2500 ####[facility] [address] [place], [address] Lymphocytes/100 WBC (Bld) 12.2 % Low 19-41 [facility] Comment on above: Performed By: #### L 100.0100, L500.2500 ####[facility] [address] [place], [address] MCH (RBC) [Entitic mass] 27.0 pg Normal 27.0-32.0 [facility] Comment on above: Performed By: #### L 100.0100, L500.2500 ####[facility] [address] [place], [address] MCHC (RBC) [Mass/Vol] 30.6 g/dL Low 32-36 [facility] Comment on above: Performed By: #### L 100.0100, L500.2500 ####[facility] [address] [place], [address] MCV (RBC) [Entitic vol] 88.2 fL Normal 81-99 [facility] Comment on above: Performed By: #### L 100.0100, L500.2500 ####[facility] [address] [place], [address] Monocytes/100 WBC (Bld) 3.8 % Normal 0-10 [facility] Comment on above: Performed By: #### L 100.0100, L500.2500 ####[facility] [address] [place], [address] Neutrophils/100 WBC (Bld) 79.0 % High 47-70 [facility] Comment on above: Performed By: #### L 100.0100, L500.2500 ####[facility] [address] [place], [address] Nucleated RBC (Bld) [#/Vol] 0 10*3/uL Normal 0-5 [facility] Comment on above: Performed By: #### L 100.0100, L500.2500 ####[facility] [address] [place], [address] Platelet mean volume (Bld) [Entitic vol] 9.3 fL Normal 6.2-12.0 [facility] Comment on above: Performed By: #### L 100.0100, L500.2500 ####[facility] [address] [place], [address] Platelets (Bld) [#/Vol] 167 10*3/uL Normal 150-450 [facility] Comment on above: Performed By: #### L 100.0100, L500.2500 ####[facility] [address] [place], [address] RBC (Bld) [#/Vol] 3.04 10*6/uL Low 4.2-5.4 [facility] Comment on above: Performed By: #### L 100.0100, L500.2500 ####[facility] [address] [place], [address] RDW SD 56.7 fl High 35.1-43.9 [facility] Comment on above: Performed By: #### L 100.0100, L500.2500 ####[facility] [address] [place], [address] WBC (Bld) [#/Vol] 8.2 10*3/uL Normal 4.4-11.0 [facility] Comment on above: Performed By: #### L 100.0100, L500.2500 ####[facility] [address] [place], [address] Basic Metabolic Profile (BMP )on 08-05-2024 BUN/CRE 32.7 RATIO High 10-20 [facility] Comment on above: Performed By: #### L 100.0100, L500.2500 ####[facility] [address] [place], [address] Calcium [Mass/Vol] 7.9 mg/dL Normal 7.6-11.0 [facility] Comment on above: Performed By: #### L 100.0100, L500.2500 ####[facility] [address] [place], [address] Chloride [Moles/Vol] 102 mmol/L Normal 98-108 [facility] Comment on above: Performed By: #### L 100.0100, L500.2500 ####[facility] [address] [place], [address] CO2 [Moles/Vol] 20.3 mmol/L Low 21.0-32.0 [facility] Comment on above: Performed By: #### L 100.0100, L500.2500 ####[facility] [address] [place], [address] Creatinine [Mass/Vol] 1.69 mg/dL High 0.70-1.20 [facility] Comment on above: Performed By: #### L 100.0100, L500.2500 ####[facility] [address] [place], [address] ECRCL 25.06 ml/min Low 50-250 [facility] Comment on above: Performed By: #### L 100.0100, L500.2500 ####[facility] [address] [place], [address] GAP 12 Normal 5-15 [facility] Comment on above: Performed By: #### L 100.0100, L500.2500 ####[facility] [address] [place], [address] GFR/1.73 sq M.predicted among non-blacks MDRD (S/P/Bld) [Vol rate/Area] 34 mL/min/{1.73_m2} Low >60 [facility] Comment on above: Result Comment: mL/m in/1.73m2 CKD-EPI Creatinine Equation (2020) Performed By: #### L 100.0100, L500.2500 ####[facility] [address] [place], [address] Glucose [Mass/Vol] 81 mg/dL Normal 70-99 [facility] Comment on above: Performed By: #### L 100.0100, L500.2500 ####[facility] [address] [place], [address] Potassium [Moles/Vol] 5.0 mmol/L Normal 3.3-5.1 [facility] Comment on above: Performed By: #### L 100.0100, L500.2500 ####[facility] [address] [place], [address] Sodium [Moles/Vol] 135 mmol/L Normal 133-145 [facility] Comment on above: Performed By: #### L 100.0100, L500.2500 ####[facility] [address] [place], [address] Urea nitrogen [Mass/Vol] 55 mg/dL High 4-19 [facility] Comment on above: Performed By: #### L 100.0100, L500.2500 ####[facility] [address] [place], [address] BUN Normal -19 [facility] Comment on above: Result Comment: Canc elled via OM: Order cancelled - Patient discharged Performed By: #### L 500.2500, L100.0100 ####[facility] [address] [place], [address] BUN/CRE Normal 10-20 [facility] Comment on above: Result Comment: Canc elled via OM: Order cancelled - Patient discharged Performed By: #### L 500.2500, L100.0100 ####[facility] [address] [place], [address] Calcium Normal 7.6-11.0 [facility] Comment on above: Result Comment: Canc elled via OM: Order cancelled - Patient discharged Performed By: #### L 500.2500, L100.0100 ####[facility] [address] [place], [address] CL Normal 98-107 [facility] Comment on above: Result Comment: Canc elled via OM: Order cancelled - Patient discharged Performed By: #### L 500.2500, L100.0100 ####[facility] [address] [place], [address] CO2 Normal 21.0-32.0 [facility] Comment on above: Result Comment: Canc elled via OM: Order cancelled - Patient discharged Performed By: #### L 500.2500, L100.0100 ####[facility] [address] [place], [address] CREAT,SERUM Normal 0.70-1.20 [facility] Comment on above: Result Comment: Canc elled via OM: Order cancelled - Patient discharged Performed By: #### L 500.2500, L100.0100 ####[facility] [address] [place], [address] eGFR Normal >60 [facility] Comment on above: Result Comment: Canc elled via OM: Order cancelled - Patient discharged Performed By: #### L 500.2500, L100.0100 ####[facility] [address] [place], [address] GAP Normal 5-15 [facility] Comment on above: Result Comment: Canc elled via OM: Order cancelled - Patient discharged Performed By: #### L 500.2500, L100.0100 ####[facility] [address] [place], [address] GLU Normal 70-99 [facility] Comment on above: Result Comment: Canc elled via OM: Order cancelled - Patient discharged Performed By: #### L 500.2500, L100.0100 ####[facility] [address] [place], [address] Potassium Normal 3.5-5.1 [facility] Comment on above: Result Comment: Canc elled via OM: Order cancelled - Patient discharged Performed By: #### L 500.2500, L100.0100 ####[facility] [address] [place], [address] Basic Metabolic Profile (BMP) Normal 136-145 [facility] Comment on above: Result Comment: Canc elled via OM: Order cancelled - Patient discharged Performed By: #### L 500.2500, L100.0100 ####[facility] [address] [place], [address] Bedside Glucoseon 08-05-2024 FINGERSTICK GLU 74 mg/dL Normal 74-106 [facility] Comment on above: Result Comment: LUIZA GEMENT OF PATIENT CARE PER NURSING PROTOCOL Performed By: #### L 501.080 ####[facility] [address] [place], [address] FINGERSTICK GLU 97 mg/dL Normal 74-106 [facility] Comment on above: Result Comment: LUIZA GEMENT OF PATIENT CARE PER NURSING PROTOCOL Performed By: #### L 501.080 ####[facility] [address] [place], [address] FINGERSTICK GLU 102 mg/dL Normal 74-106 [facility] Comment on above: Result Comment: LUIZA GEMENT OF PATIENT CARE PER NURSING PROTOCOL Performed By: #### L 501.080 ####[facility] [address] [place], [address] FINGERSTICK GLU 59 mg/dL Low 74-106 [facility] Comment on above: Result Comment: LUIZA GEMENT OF PATIENT CARE PER NURSING PROTOCOL Performed By: #### L 501.080 ####[facility] [address] [place], [address] FINGERSTICK GLU 72 mg/dL Low 74-106 [facility] Comment on above: Result Comment: LUIZA GEMENT OF PATIENT CARE PER NURSING PROTOCOL Performed By: #### L 501.080 ####[facility] [address] [place], [address] FINGERSTICK GLU 96 mg/dL Normal 74-106 [facility] Comment on above: Result Comment: LUIZA GEMENT OF PATIENT CARE PER NURSING PROTOCOL Performed By: #### L 501.080 ####[facility] [address] [place], [address] FINGERSTICK GLU 66 mg/dL Low 74-106 [facility] Comment on above: Result Comment: LUIZA GEMENT OF PATIENT CARE PER NURSING PROTOCOL Performed By: #### L 501.080 ####[facility] [address] [place], [address] FINGERSTICK GLU 80 mg/dL Normal 74-106 [facility] Comment on above: Result Comment: LUIZA GEMENT OF PATIENT CARE PER NURSING PROTOCOL Performed By: #### L 501.080 ####[facility] [address] [place], [address] FINGERSTICK GLU 95 mg/dL Normal 74-106 [facility] Comment on above: Result Comment: LUIZA GEMENT OF PATIENT CARE PER NURSING PROTOCOL Performed By: #### L 501.080 ####[facility] [address] [place], [address] CBC W/Diff, Automatedon 03-1 0-2024 Absolute Lymph 1.25 X10 3/uL Normal 0.83-4.51 [facility] Comment on above: Performed By: #### L 100.0100, L500.2500 ####[facility] [address] [place], [address] Absolute Neut 12.9 X10 3/uL High 2.0-7.7 [facility] Comment on above: Performed By: #### L 100.0100, L500.2500 ####[facility] [address] [place], [address] Basophils/100 WBC (Bld) 0.3 % Normal 0-1 [facility] Comment on above: Performed By: #### L 100.0100, L500.2500 ####[facility] [address] [place], [address] Eosinophils/100 WBC (Bld) 0.3 % Normal 0-5 [facility] Comment on above: Performed By: #### L 100.0100, L500.2500 ####[facility] [address] [place], [address] Erythrocyte distribution width (RBC) [Ratio] 17.0 % High 11.6-14.6 [facility] Comment on above: Performed By: #### L 100.0100, L500.2500 ####[facility] [address] [place], [address] Hematocrit (Bld) [Volume fraction] 27.0 % Low 37-47 [facility] Comment on above: Performed By: #### L 100.0100, L500.2500 ####[facility] [address] [place], [address] Hemoglobin (Bld) [Mass/Vol] 8.6 g/dL Low 12.0-15.0 [facility] Comment on above: Performed By: #### L 100.0100, L500.2500 ####[facility] [address] [place], [address] IG% 3.900 High 0.0-0.9 [facility] Comment on above: Result Comment: IG% - Immature Granulocytes (promyelocytes, myelocytes andmetamyelocytes) > 1% indicates that a LEFT SHIFT is Present. Performed By: #### L 100.0100, L500.2500 ####[facility] [address] [place], [address] Lymphocytes/100 WBC (Bld) 8.2 % Low 19-41 [facility] Comment on above: Performed By: #### L 100.0100, L500.2500 ####[facility] [address] [place], [address] MCH (RBC) [Entitic mass] 27.3 pg Normal 27.0-32.0 [facility] Comment on above: Performed By: #### L 100.0100, L500.2500 ####[facility] [address] [place], [address] MCHC (RBC) [Mass/Vol] 31.9 g/dL Low 32-36 [facility] Comment on above: Performed By: #### L 100.0100, L500.2500 ####[facility] [address] [place], [address] MCV (RBC) [Entitic vol] 85.7 fL Normal 81-99 [facility] Comment on above: Performed By: #### L 100.0100, L500.2500 ####[facility] [address] [place], [address] Monocytes/100 WBC (Bld) 3.4 % Normal 0-10 [facility] Comment on above: Performed By: #### L 100.0100, L500.2500 ####[facility] [address] [place], [address] Neutrophils/100 WBC (Bld) 83.9 % High 47-70 [facility] Comment on above: Performed By: #### L 100.0100, L500.2500 ####[facility] [address] [place], [address] Nucleated RBC (Bld) [#/Vol] 0 10*3/uL Normal 0-5 [facility] Comment on above: Performed By: #### L 100.0100, L500.2500 ####[facility] [address] [place], [address] Platelet mean volume (Bld) [Entitic vol] 9.2 fL Normal 6.2-12.0 [facility] Comment on above: Performed By: #### L 100.0100, L500.2500 ####[facility] [address] [place], [address] Platelets (Bld) [#/Vol] 234 10*3/uL Normal 150-450 [facility] Comment on above: Performed By: #### L 100.0100, L500.2500 ####[facility] [address] [place], [address] RBC (Bld) [#/Vol] 3.15 10*6/uL Low 4.2-5.4 [facility] Comment on above: Performed By: #### L 100.0100, L500.2500 ####[facility] [address] [place], [address] RDW SD 52.5 fl High 35.1-43.9 [facility] Comment on above: Performed By: #### L 100.0100, L500.2500 ####[facility] [address] [place], [address] WBC (Bld) [#/Vol] 15.3 10*3/uL High 4.4-11.0 [facility] Comment on above: Performed By: #### L 100.0100, L500.2500 ####[facility] [address] [place], [address] Absolute Neut Normal 2.0-7.7 [facility] Comment on above: Result Comment: Canc elled via OM: Order cancelled - Patient discharged Performed By: #### L 500.2500, L100.0100 ####[facility] [address] [place], [address] HCT Normal 37-47 [facility] Comment on above: Result Comment: Canc elled via OM: Order cancelled - Patient discharged Performed By: #### L 500.2500, L100.0100 ####[facility] [address] [place], [address] HGB Normal 12.0-15.0 [facility] Comment on above: Result Comment: Canc elled via OM: Order cancelled - Patient discharged Performed By: #### L 500.2500, L100.0100 ####[facility] [address] [place], [address] MCH Normal 27.0-32.0 [facility] Comment on above: Result Comment: Canc elled via OM: Order cancelled - Patient discharged Performed By: #### L 500.2500, L100.0100 ####[facility] [address] [place], [address] MCHC Normal 32-36 [facility] Comment on above: Result Comment: Canc elled via OM: Order cancelled - Patient discharged Performed By: #### L 500.2500, L100.0100 ####[facility] [address] [place], [address] MCV Normal 81-99 [facility] Comment on above: Result Comment: Canc elled via OM: Order cancelled - Patient discharged Performed By: #### L 500.2500, L100.0100 ####[facility] [address] [place], [address] NEUT% Normal 47-70 [facility] Comment on above: Result Comment: Canc elled via OM: Order cancelled - Patient discharged Performed By: #### L 500.2500, L100.0100 ####[facility] [address] [place], [address] PLT Normal 150-450 [facility] Comment on above: Result Comment: Canc elled via OM: Order cancelled - Patient discharged Performed By: #### L 500.2500, L100.0100 ####[facility] [address] [place], [address] RBC Normal 4.2-5.4 [facility] Comment on above: Result Comment: Canc elled via OM: Order cancelled - Patient discharged Performed By: #### L 500.2500, L100.0100 ####[facility] [address] [place], [address] RDW CV Normal 11.6-14.6 [facility] Comment on above: Result Comment: Canc elled via OM: Order cancelled - Patient discharged Performed By: #### L 500.2500, L100.0100 ####[facility] [address] [place], [address] RDW SD Normal 35.1-43.9 [facility] Comment on above: Result Comment: Canc elled via OM: Order cancelled - Patient discharged Performed By: #### L 500.2500, L100.0100 ####[facility] [address] [place], [address] WBC Normal 4.4-11.0 [facility] Comment on above: Result Comment: Canc elled via OM: Order cancelled - Patient discharged Performed By: #### L 500.2500, L100.0100 ####[facility] [address] [place], [address] ALP [Catalytic activity/Vol] Ordered By: [facility] on 08-04-2024 Serum or plasma alkaline phosphatase measurement 56 U/L 35-104 [facility] ALT [Catalytic activity/Vol] Ordered By: [facility] on 08-04-2024 Serum or plasma alanine aminotransferase (ALT) measurement 7 U/L <35 [facility] Albumin [Mass/Vol]Ordered By : [facility] on 08-04-2024 Serum or plasma albumin measurement (mass/volume) 2.1 g/dL Low 3.4-4.8 [facility] Albumin/Globulin [Mass ratio ]Ordered By: [facility] on 08-04-2024 Serum or plasma albumin/globulin mass ratio 0.7 RATIO Low 0.9-2.4 [facility] [id number] 08-04-2024 ANTIBODY ID Normal [facility] Comment on above: Order Comment: CMV N EG? NNumber of units to transfuse: 1Is this product for anemia associated withhemoglobinopathy? NIs pt's Hgb is 10mmHg)? NIs this for PREOP anemia correction prior to anesthesia? NReason for Ordering Blood: ChronicIs there symptomatic anemia? NAre the blood/blood products to be transfused? YIs the patient having/had surgery? NWhen RomiNY Result Comment: CFYA Performed By: #### B MATEO, [facility], [id number] ####[facility] [address] [place], [place], [address] BRCon 08-04-2024 RC Normal [facility] Comment on above: Result Comment: [id number] ON RC TRANSFUSED 08/04/24 1435 Performed By: #### B , [facility], [id number] ####[facility] [address] [place], [place], [address] Basic Metabolic Profile (BMP )on 08-04-2024 BUN Normal 4-19 [facility] Comment on above: Result Comment: Canc elled via OM: Order cancelled - Patient discharged Performed By: #### L 500.2500, L100.0100 ####[facility] [address] [place], [place], [address] Order Comment: UTO X 2 PHLEBS, NOTIFIED NURSE THERESA Result Comment: MORE RECENT SPECIMEN COLLECTED. Performed By: #### L 100.0100, L500.2500 ####[facility] [address] [place], [address] BUN/CRE Normal 10-20 [facility] Comment on above: Result Comment: Canc elled via OM: Order cancelled - Patient discharged Performed By: #### L 500.2500, L100.0100 ####[facility] [address] [place], [address] Order Comment: UTO X 2 PHLEBS, NOTIFIED NURSE THERESA Result Comment: MORE RECENT SPECIMEN COLLECTED. Performed By: #### L 100.0100, L500.2500 ####[facility] [address] [place], [address] Calcium Normal 7.6-11.0 [facility] Comment on above: Result Comment: Canc elled via OM: Order cancelled - Patient discharged Performed By: #### L 500.2500, L100.0100 ####[facility] [address] [place], [address] Order Comment: UTO X 2 PHLEBS, NOTIFIED NURSE THERESA Result Comment: MORE RECENT SPECIMEN COLLECTED. Performed By: #### L 100.0100, L500.2500 ####[facility] [address] [place], [address] CL Normal 98-108 [facility] Comment on above: Result Comment: Canc elled via OM: Order cancelled - Patient discharged Performed By: #### L 500.2500, L100.0100 ####[facility] [address] [place], [address] Order Comment: UTO X 2 PHLEBS, NOTIFIED NURSE THERESA Result Comment: MORE RECENT SPECIMEN COLLECTED. Performed By: #### L 100.0100, L500.2500 ####[facility] [address] [place], [address] CO2 Normal 21.0-32.0 [facility] Comment on above: Result Comment: Canc elled via OM: Order cancelled - Patient discharged Performed By: #### L 500.2500, L100.0100 ####[facility] [address] [place], [address] Order Comment: UTO X 2 PHLEBS, NOTIFIED NURSE THERESA Result Comment: MORE RECENT SPECIMEN COLLECTED. Performed By: #### L 100.0100, L500.2500 ####[facility] [address] [place], [address] CREAT,SERUM Normal 0.70-1.20 [facility] Comment on above: Result Comment: Canc elled via OM: Order cancelled - Patient discharged Performed By: #### L 500.2500, L100.0100 ####[facility] [address] [place], [address] Order Comment: UTO X 2 PHLEBS, NOTIFIED NURSE THERESA Result Comment: MORE RECENT SPECIMEN COLLECTED. Performed By: #### L 100.0100, L500.2500 ####[facility] [address] [place], [address] eGFR Normal >60 [facility] Comment on above: Result Comment: Canc elled via OM: Order cancelled - Patient discharged Performed By: #### L 500.2500, L100.0100 ####[facility] [address] [place], [address] Order Comment: UTO X 2 PHLEBS, NOTIFIED NURSE THERESA Result Comment: MORE RECENT SPECIMEN COLLECTED. Performed By: #### L 100.0100, L500.2500 ####[facility] [address] [place], [address] GAP Normal 5-15 [facility] Comment on above: Result Comment: Canc elled via OM: Order cancelled - Patient discharged Performed By: #### L 500.2500, L100.0100 ####[facility] [address] [place], [address] Order Comment: UTO X 2 PHLEBS, NOTIFIED NURSE THERESA Result Comment: MORE RECENT SPECIMEN COLLECTED. Performed By: #### L 100.0100, L500.2500 ####[facility] [address] [place], [address] GLU Normal 70-99 [facility] Comment on above: Result Comment: Canc elled via OM: Order cancelled - Patient discharged Performed By: #### L 500.2500, L100.0100 ####[facility] [address] [place], [address] Order Comment: UTO X 2 PHLEBS, NOTIFIED NURSE THERESA Result Comment: MORE RECENT SPECIMEN COLLECTED. Performed By: #### L 100.0100, L500.2500 ####[facility] [address] [place], [address] Potassium Normal 3.3-5.1 [facility] Comment on above: Result Comment: Canc elled via OM: Order cancelled - Patient discharged Performed By: #### L 500.2500, L100.0100 ####[facility] [address] [place], [address] Order Comment: UTO X 2 PHLEBS, NOTIFIED NURSE THERESA Result Comment: MORE RECENT SPECIMEN COLLECTED. Performed By: #### L 100.0100, L500.2500 ####[facility] [address] [place], [address] Basic Metabolic Profile (BMP) Normal 133-145 [facility] Comment on above: Result Comment: Canc elled via OM: Order cancelled - Patient discharged Performed By: #### L 500.2500, L100.0100 ####[facility] [address] [place], [address] Order Comment: UTO X 2 PHLEBS, NOTIFIED NURSE THERESA Result Comment: MORE RECENT SPECIMEN COLLECTED. Performed By: #### L 100.0100, L500.2500 ####[facility] [address] [place], [address] Bedside Glucoseon 08-04-2024 FINGERSTICK GLU 76 mg/dL Normal [address] [place] [address] Comment on above: Result Comment: LUIZA GEMENT OF PATIENT CARE PER NURSING PROTOCOL Performed By: #### L 501.080 ####[facility] [address] [place], [address] FINGERSTICK GLU 75 mg/dL Normal -[address] [place] [address] Comment on above: Result Comment: LUIZA GEMENT OF PATIENT CARE PER NURSING PROTOCOL Performed By: #### L 501.080 ####[facility] [address] [place], [address] FINGERSTICK GLU < 10 Invalid Interpretation Code [address] [place] [address] Comment on above: Result Comment: Dr George mathis FollowedMANAGEMENT OF PATIENT CARE PER NURSING PROTOCOL Performed By: #### L 501.080 ####[facility] [address] [place], [address] FINGERSTICK GLU 14 mg/dL Invalid Interpretation Code [address] [place] [address] Comment on above: Result Comment: LUIZA GEMENT OF PATIENT CARE PER NURSING PROTOCOL Performed By: #### L 501.080 ####[facility] [address] [place], [address] FINGERSTICK GLU < 10 Invalid Interpretation Code [address] [place] [address] Comment on above: Result Comment: Dr George mathis FollowedMANAGEMENT OF PATIENT CARE PER NURSING PROTOCOL Performed By: #### L 501.080 ####[facility] [address] [place], [address] FINGERSTICK GLU 16 mg/dL Invalid Interpretation Code [address] [place] [address] Comment on above: Result Comment: LUIZA EMILY OF PATIENT CARE PER NURSING PROTOCOL Performed By: #### L 501.080 ####[facility] [address] [place], [place], [id number] Bilirubin, totalOrdered By: White on 08-04-2024 Bilirubin [Mass/Vol] 0.23 mg/dL 0.00-1.30 [facility] Bilirubin, total 0.23 mg/dL 0.00-1.30 [facility] Blood band neutrophil count as percentage of total leukocytesOrdered By: White on 08-04-2024 Band form neutrophils/100 WBC (Bld) 1 % 0-5 [facility] Blood band neutrophil count as percentage of total leukocytes 1 % 0-5 [facility] Blood eosinophils/100 leukoc ytesOrdered By: White on 08-04-2024 Eosinophils/100 WBC (Bld) 1 % 0-5 [facility] Blood lymphocytes/100 leukoc ytesOrdered By: White on 08-04-2024 Lymphocytes/100 WBC (Bld) 13 % Low 19-41 [facility] Blood metamyelocytes/100 massiel kocytesOrdered By: White on 08-04-2024 Metamyelocytes/100 WBC (Bld) 2 % High 0-1 [facility] Blood metamyelocytes/100 leukocytes 2 % 0-10 [facility] Blood monocytes/100 leukocyt esOrdered By: White on 08-04-2024 Monocytes/100 WBC (Bld) 2 % 0-10 [facility] Blood segmented neutrophils/ 100 leukocytesOrdered By: White on 08-04-2024 Segmented neutrophils/100 WBC (Bld) 81 % High 47-70 [facility] CBC W/Diff, Automatedon Absolute Lymph 1.24 X10 3/uL Normal 0.83-4.51 [facility] Comment on above: Performed By: #### L 100.0100 ####[facility] [address] [place], [place], [id number] Absolute Neut 7.9 X10 3/uL High 2.0-7.7 [facility] Comment on above: Performed By: #### L 100.0100 ####[facility] [address] [place], [address] PATH REV May foll Normal [facility] Comment on above: Performed By: #### L 100.0100 ####[facility] [address] [place], [address] Absolute Neut Normal 2.0-7.7 [facility] Comment on above: Result Comment: Canc elled via OM: Order cancelled - Patient discharged Performed By: #### L 500.2500, L100.0100 ####[facility] [address] [place], [address] Order Comment: UTO X 2 PHLEBS, NOTIFIED NURSE THERESA Result Comment: DUPL ICATE Performed By: #### L 100.0100, L500.2500 ####[facility] [address] [place], [address] HCT Normal 37-47 [facility] Comment on above: Result Comment: Canc elled via OM: Order cancelled - Patient discharged Performed By: #### L 500.2500, L100.0100 ####[facility] [address] [place], [address] Order Comment: UTO X 2 PHLEBS, NOTIFIED NURSE THERESA Result Comment: DUPL ICATE Performed By: #### L 100.0100, L500.2500 ####[facility] [address] [place], [address] HGB Normal 12.0-15.0 [facility] Comment on above: Result Comment: Canc elled via OM: Order cancelled - Patient discharged Performed By: #### L 500.2500, L100.0100 ####[facility] [address] [place], [address] Order Comment: UTO X 2 PHLEBS, NOTIFIED NURSE THERESA Result Comment: DUPL ICATE Performed By: #### L 100.0100, L500.2500 ####[facility] [address] [place], [address] MCH Normal 27.0-32.0 [facility] Comment on above: Result Comment: Canc elled via OM: Order cancelled - Patient discharged Performed By: #### L 500.2500, L100.0100 ####[facility] [address] [place], [address] Order Comment: UTO X 2 PHLEBS, NOTIFIED NURSE THERESA Result Comment: DUPL ICATE Performed By: #### L 100.0100, L500.2500 ####[facility] [address] [place], [address] MCHC Normal 32-36 [facility] Comment on above: Result Comment: Canc elled via OM: Order cancelled - Patient discharged Performed By: #### L 500.2500, L100.0100 ####[facility] [address] [place], [address] Order Comment: UTO X 2 PHLEBS, NOTIFIED NURSE THERESA Result Comment: DUPL ICATE Performed By: #### L 100.0100, L500.2500 ####[facility] [address] [place], [address] MCV Normal 81-99 [facility] Comment on above: Result Comment: Canc elled via OM: Order cancelled - Patient discharged Performed By: #### L 500.2500, L100.0100 ####[facility] [address] [place], [address] Order Comment: UTO X 2 PHLEBS, NOTIFIED NURSE THERESA Result Comment: DUPL ICATE Performed By: #### L 100.0100, L500.2500 ####[facility] [address] [place], [address] NEUT% Normal 47-70 [facility] Comment on above: Result Comment: Canc elled via OM: Order cancelled - Patient discharged Performed By: #### L 500.2500, L100.0100 ####[facility] [address] [place], [address] Order Comment: UTO X 2 PHLEBS, NOTIFIED NURSE THERESA Result Comment: DUPL ICATE Performed By: #### L 100.0100, L500.2500 ####[facility] [address] [place], [address] PLT Normal 150-450 [facility] Comment on above: Result Comment: Canc elled via OM: Order cancelled - Patient discharged Performed By: #### L 500.2500, L100.0100 ####[facility] [address] [place], [address] Order Comment: UTO X 2 PHLEBS, NOTIFIED NURSE THERESA Result Comment: DUPL ICATE Performed By: #### L 100.0100, L500.2500 ####[facility] [address] [place], [address] RBC Normal 4.2-5.4 [facility] Comment on above: Result Comment: Canc elled via OM: Order cancelled - Patient discharged Performed By: #### L 500.2500, L100.0100 ####[facility] [address] [place], [address] Order Comment: UTO X 2 PHLEBS, NOTIFIED NURSE THERESA Result Comment: DUPL ICATE Performed By: #### L 100.0100, L500.2500 ####[facility] [address] [place], [address] RDW CV Normal 11.6-14.6 [facility] Comment on above: Result Comment: Canc elled via OM: Order cancelled - Patient discharged Performed By: #### L 500.2500, L100.0100 ####[facility] [address] [place], [address] Order Comment: UTO X 2 PHLEBS, NOTIFIED NURSE THERESA Result Comment: DUPL ICATE Performed By: #### L 100.0100, L500.2500 ####[facility] [address] [place], [address] RDW SD Normal 35.1-43.9 [facility] Comment on above: Result Comment: Canc elled via OM: Order cancelled - Patient discharged Performed By: #### L 500.2500, L100.0100 ####[facility] [address] [place], [address] Order Comment: UTO X 2 PHLEBS, NOTIFIED NURSE THERESA Result Comment: DUPL ICATE Performed By: #### L 100.0100, L500.2500 ####[facility] [address] [place], [address] WBC Normal 4.4-11.0 [facility] Comment on above: Result Comment: Canc elled via OM: Order cancelled - Patient discharged Performed By: #### L 500.2500, L100.0100 ####[facility] [address] [place], [address] Order Comment: UTO X 2 PHLEBS, NOTIFIED NURSE THERESA Result Comment: DUPL ICATE Performed By: #### L 100.0100, L500.2500 ####[facility] [address] [place], [address] Cells counted Molgen (Bld/Ti ss) [#]Ordered By: Ivone Buckner on 08-04-2024 Total cell count 100 MANUAL DIFF [facility] Comprehensive Metabolic Prof ilon 08-04-2024 Albumin [Mass/Vol] 2.1 g/dL Low 3.4-4.8 [facility] Comment on above: Performed By: #### L 500.4050 ####[facility] [address] [place], [address] Albumin/Globulin [Mass ratio] 0.7 {ratio} Low 0.9-2.4 [facility] Comment on above: Performed By: #### L 500.4050 ####[facility] [address] [place], [address] ALK PHOS 56 U/L Normal 35-104 [facility] Comment on above: Performed By: #### L 500.4050 ####[facility] [address] [place], [address] ALT [Catalytic activity/Vol] 7 U/L Normal <=34 [facility] Comment on above: Performed By: #### L 500.4050 ####[facility] [address] [place], [address] AST [Catalytic activity/Vol] 25 U/L Normal <=31 [facility] Comment on above: Performed By: #### L 500.4050 ####[facility] [address] [place], [address] Bilirubin [Mass/Vol] 0.23 mg/dL Normal 0.00-1.30 [facility] Comment on above: Performed By: #### L 500.4050 ####[facility] [address] [place], [address] BUN/CRE 39.2 RATIO High 10-20 [facility] Comment on above: Performed By: #### L 500.4050 ####[facility] [address] [place], [address] Calcium [Mass/Vol] 8.0 mg/dL Normal 7.6-11.0 [facility] Comment on above: Performed By: #### L 500.4050 ####[facility] [address] [place], [address] Chloride [Moles/Vol] 101 mmol/L Normal 98-108 [facility] Comment on above: Performed By: #### L 500.4050 ####[facility] [address] [place], [address] CO2 [Moles/Vol] 22.9 mmol/L Normal 21.0-32.0 [facility] Comment on above: Performed By: #### L 500.4050 ####[facility] [address] [place], [address] Creatinine [Mass/Vol] 1.41 mg/dL High 0.70-1.20 [facility] Comment on above: Performed By: #### L 500.4050 ####[facility] [address] [place], [address] ECRCL 30.04 ml/min Low 50-250 [facility] Comment on above: Performed By: #### L 500.4050 ####[facility] [address] [place], [address] GAP 9 Normal 5-15 [facility] Comment on above: Performed By: #### L 500.4050 ####[facility] [address] [place], [address] GFR/1.73 sq M.predicted among non-blacks MDRD (S/P/Bld) [Vol rate/Area] 42 mL/min/{1.73_m2} Low >60 [facility] Comment on above: Result Comment: mL/m in/1.73m2 CKD-EPI Creatinine Equation (2020) Performed By: #### L 500.4050 ####[facility] [address] [place], [address] Globulin (S) [Mass/Vol] 3.1 g/dL Normal 2.2-4.2 [facility] Comment on above: Performed By: #### L 500.4050 ####[facility] [address] [place], [address] Glucose [Mass/Vol] 153 mg/dL High 70-99 [facility] Comment on above: Performed By: #### L 500.4050 ####[facility] [address] [place], [address] Potassium [Moles/Vol] 4.7 mmol/L Normal 3.3-5.1 [facility] Comment on above: Performed By: #### L 500.4050 ####[facility] [address] [place], [address] Sodium [Moles/Vol] 134 mmol/L Normal 133-145 [facility] Comment on above: Performed By: #### L 500.4050 ####[facility] [address] [place], [address] T PROT 5.2 g/dL Low 5.9-8.4 [facility] Comment on above: Performed By: #### L 500.4050 ####[facility] [address] [place], [address] Urea nitrogen [Mass/Vol] 55 mg/dL High 4-19 [facility] Comment on above: Performed By: #### L 500.4050 ####[facility] [address] [place], [address] Erythrocyte morphology asses smentOrdered By: Ivone White on 08-04-2024 RBC morphology finding Nom (Bld) N CYTIC NORMAL NORM C&C [facility] HH, Hemoglobin AND Hematocri ton 08-04-2024 Hematocrit (Bld) [Volume fraction] 27.1 % Low 37-47 [facility] Comment on above: Order Comment: Comme nts: 1-2 hours after PRBC completion. Performed By: #### L 100.0600 ####[facility] [address] [place], [address] Hemoglobin (Bld) [Mass/Vol] 8.6 g/dL Low 12.0-15.0 [facility] Comment on above: Order Comment: Comme nts: 1-2 hours after PRBC completion. Performed By: #### L 100.0600 ####[facility] [address] [facility] [place], [address] Hypochromatic red blood cell detectionOrdered By: Ivone Buckner on 08-04-2024 Hypochromia Ql (Bld) 1+ [facility] Hypochromia Ql (Bld)Ordered By: Ivone Dudley on 08-04-2024 Hypochromatic red blood cell detection 1+ [facility] L499.0042on 08-04-2024 Trop T High Sen 146 ng/L Invalid Interpretation Code <=14 [facility] Comment on above: Result Comment: Crit ical Result(s) Called to Ginette MEJIA ([facility]): John Paul.Stoner:??Results read back by same. Performed By: #### L 499.0042 ####[facility] [address] [place], [address] L501.4021on 08-04-2024 Trop T High Sen 152 ng/L Invalid Interpretation Code <=14 [facility] Comment on above: Result Comment: Crit ical Result(s) Called at:0709 by: WALTER KENNEDY TO KIN??Results read back by same. Performed By: #### L 501.4021 ####[facility] [address] [facility] [place], [address] Lymphocytes/100 WBC (Bld)Ord ered By: Ivone Dudley on 08-04-2024 Blood lymphocytes/100 leukocytes 13 % Low 19-41 [facility] No Panel InformationOrdered By: [facility] Dudley on 08-04-2024 152 ng/L High <14 [facility] 25 U/L <32 [facility] Pathologist review Horace (Unsp spec) [Interp]Ordered By: Ivone Buckner on 08-04-2024 Review by pathologist Karen paul [facility] Platelet estimateOrdered By: Ivone Dudley on 08-04-2024 Platelets LM Ql (Bld) ADEQUATE ADEQ [facility] Platelets LM Ql (Bld)Ordered By: Ivone Buckner on 08-04-2024 Platelet estimate ADEQUATE ADEQ [facility] RBC morphology finding Nom ( Bld)Ordered By: Ivone Buckner on 08-04-2024 Erythrocyte morphology assessment N CYTIC NORMAL NORM C&C [facility] Review by pathologistOrdered By: Ivone Buckner on 08-04-2024 Pathologist review Horace (Unsp spec) [Interp] May foll [facility] Segmented neutrophils/100 WB C (Bld)Ordered By: Ivone Buckner on 08-04-2024 Blood segmented neutrophils/100 leukocytes 81 % High 47-70 [facility] Serum globulin measurementOr dered By: Ivone Buckner on 08-04-2024 Globulin (S) [Mass/Vol] 3.1 g/dL 2.2-4.2 [facility] Serum globulin measurement 3.1 g/dL 2.2-4.2 [facility] Serum or plasma alanine camargo otransferase (ALT) measurementOrdered By: Ivone Buckner on 08-04-2024 ALT [Catalytic activity/Vol] 7 U/L <35 [facility] Serum or plasma albumin megan urement (mass/volume)Ordered By: Ivone Buckner on 08-04-2024 Albumin [Mass/Vol] 2.1 g/dL Low 3.4-4.8 [facility] Serum or plasma albumin/glob ulin mass ratioOrdered By: Ivone Buckner on 08-04-2024 Albumin/Globulin [Mass ratio] 0.7 {ratio} Low 0.9-2.4 [facility] Serum or plasma alkaline susan sphatase measurementOrdered By: Ivone Buckner on 08-04-2024 ALP [Catalytic activity/Vol] 56 U/L 35-104 [facility] Total cell countOrdered By: Ivone Buckner on 08-04-2024 Cells counted Molgen (Bld/Tiss) [#] 100 MANUAL DIFF [facility] Total proteinOrdered By: Nona Buckner on 08-04-2024 Protein [Mass/Vol] 5.2 g/dL Low 5.9-8.4 [facility] Total protein 5.2 g/dL Low 5.9-8.4 [facility] Troponin T.cardiac High sens itivity method [Mass/Vol]Ordered By: Ivone Buckner on 08-04-2024 Troponin T.cardiac [Mass/volume] in Serum or Plasma by High sensitivity method 146 ng/L High <14 [facility] Troponin T.cardiac [Mass/vol ume] in Serum or Plasma by High sensitivity methodOrdered By: Ivone Buckner on 08-04-2024 Troponin T.cardiac High sensitivity method [Mass/Vol] 146 ng/L High <14 [facility] Type AND Screenon 08-04-2024 ABO and Rh group Nom (Bld) Blood group O Rh(D) positive Normal [facility] Comment on above: Order Comment: CMV N EG? NNumber of units to transfuse: 1Is this product for anemia associated withhemoglobinopathy? NIs pt's Hgb is 10mmHg)? NIs this for PREOP anemia correction prior to anesthesia? NReason for Ordering Blood: ChronicIs there symptomatic anemia? NAre the blood/blood products to be transfused? YIs the patient having/had surgery? NWmari Roberts Performed By: #### B TS, BRC, [id number] ####[facility] [address] [place], [address] Basic Metabolic Profile (BMP )on 08-03-2024 BUN/CRE 31.7 RATIO High 10-20 [facility] Comment on above: Performed By: #### L 500.2500, L100.0100 ####[facility] [address] [place], [address] Calcium [Mass/Vol] 8.6 mg/dL Normal 7.6-11.0 [facility] Comment on above: Performed By: #### L 500.2500, L100.0100 ####[facility] [address] [place], [address] Chloride [Moles/Vol] 102 mmol/L Normal 98-108 [facility] Comment on above: Performed By: #### L 500.2500, L100.0100 ####[facility] [address] [place], [address] CO2 [Moles/Vol] 21.1 mmol/L Normal 21.0-32.0 [facility] Comment on above: Performed By: #### L 500.2500, L100.0100 ####[facility] [address] [place], [address] Creatinine [Mass/Vol] 1.24 mg/dL High 0.70-1.20 [facility] Comment on above: Performed By: #### L 500.2500, L100.0100 ####[facility] [address] [place], [address] ECRCL 34.16 ml/min Low 50-250 [facility] Comment on above: Performed By: #### L 500.2500, L100.0100 ####[facility] [address] [place], [address] GAP 13 Normal 5-15 [facility] Comment on above: Performed By: #### L 500.2500, L100.0100 ####[facility] [address] [place], [address] GFR/1.73 sq M.predicted among non-blacks MDRD (S/P/Bld) [Vol rate/Area] 49 mL/min/{1.73_m2} Low >60 [facility] Comment on above: Result Comment: mL/m in/1.73m2 CKD-EPI Creatinine Equation (2020) Performed By: #### L 500.2500, L100.0100 ####[facility] [address] [place], [address] Glucose [Mass/Vol] 65 mg/dL Low 70-99 [facility] Comment on above: Performed By: #### L 500.2500, L100.0100 ####[facility] [address] [place], [address] Potassium [Moles/Vol] 4.8 mmol/L Normal 3.3-5.1 [facility] Comment on above: Performed By: #### L 500.2500, L100.0100 ####[facility] [address] [place], [address] Sodium [Moles/Vol] 135 mmol/L Normal 133-145 [facility] Comment on above: Performed By: #### L 500.2500, L100.0100 ####[facility] [address] [place], [address] Urea nitrogen [Mass/Vol] 39 mg/dL High 4-19 [facility] Comment on above: Performed By: #### L 500.2500, L100.0100 ####[facility] [address] [place], [address] BUN Normal 4-19 [facility] Comment on above: Result Comment: Canc elled via OM: Order cancelled - Patient discharged Performed By: #### L 500.2500, L100.0100 ####[facility] [address] [place], [address] BUN/CRE Normal 10-20 [facility] Comment on above: Result Comment: Canc elled via OM: Order cancelled - Patient discharged Performed By: #### L 500.2500, L100.0100 ####[facility] [address] [place], [address] Calcium Normal 7.6-11.0 [facility] Comment on above: Result Comment: Canc elled via OM: Order cancelled - Patient discharged Performed By: #### L 500.2500, L100.0100 ####[facility] [address] [place], [address] CL Normal 98-107 [facility] Comment on above: Result Comment: Canc elled via OM: Order cancelled - Patient discharged Performed By: #### L 500.2500, L100.0100 ####[facility] [address] [place], [address] CO2 Normal 21.0-32.0 [facility] Comment on above: Result Comment: Canc elled via OM: Order cancelled - Patient discharged Performed By: #### L 500.2500, L100.0100 ####[facility] [address] [place], [address] CREAT,SERUM Normal 0.70-1.20 [facility] Comment on above: Result Comment: Canc elled via OM: Order cancelled - Patient discharged Performed By: #### L 500.2500, L100.0100 ####[facility] [address] [place], [address] eGFR Normal >60 [facility] Comment on above: Result Comment: Canc elled via OM: Order cancelled - Patient discharged Performed By: #### L 500.2500, L100.0100 ####[facility] [address] [place], [address] GAP Normal 5-15 [facility] Comment on above: Result Comment: Canc elled via OM: Order cancelled - Patient discharged Performed By: #### L 500.2500, L100.0100 ####[facility] [address] [place], [address] GLU Normal 70-99 [facility] Comment on above: Result Comment: Canc elled via OM: Order cancelled - Patient discharged Performed By: #### L 500.2500, L100.0100 ####[facility] [address] [place], [address] Potassium Normal 3.5-5.1 [facility] Comment on above: Result Comment: Canc elled via OM: Order cancelled - Patient discharged Performed By: #### L 500.2500, L100.0100 ####[facility] [address] [place], [address] Basic Metabolic Profile (BMP) Normal 136-145 [facility] Comment on above: Result Comment: Canc elled via OM: Order cancelled - Patient discharged Performed By: #### L 500.2500, L100.0100 ####[facility] [address] [place], [address] CBC W/Diff, Automatedon 03-0 8-2024 Absolute Lymph 0.88 X10 3/uL Normal 0.83-4.51 [facility] Comment on above: Performed By: #### L 500.2500, L100.0100 ####[facility] [address] [place], [address] Absolute Neut 9.0 X10 3/uL High 2.0-7.7 [facility] Comment on above: Performed By: #### L 500.2500, L100.0100 ####[facility] [address] [place], [address] Basophils/100 WBC (Bld) 0.5 % Normal 0-1 [facility] Comment on above: Performed By: #### L 500.2500, L100.0100 ####[facility] [address] [place], [address] Eosinophils/100 WBC (Bld) 1.3 % Normal 0-5 [facility] Comment on above: Performed By: #### L 500.2500, L100.0100 ####[facility] [address] [place], [address] Erythrocyte distribution width (RBC) [Ratio] 17.3 % High 11.6-14.6 [facility] Comment on above: Performed By: #### L 500.2500, L100.0100 ####[facility] [address] [place], [address] Hematocrit (Bld) [Volume fraction] 27.9 % Low 37-47 [facility] Comment on above: Performed By: #### L 500.2500, L100.0100 ####[facility] [address] [place], [address] Hemoglobin (Bld) [Mass/Vol] 8.0 g/dL Low 12.0-15.0 [facility] Comment on above: Performed By: #### L 500.2500, L100.0100 ####[facility] [address] [place], [address] IG% 3.700 High 0.0-0.9 [facility] Comment on above: Result Comment: IG% - Immature Granulocytes (promyelocytes, myelocytes andmetamyelocytes) > 1% indicates that a LEFT SHIFT is Present. Performed By: #### L 500.2500, L100.0100 ####[facility] [address] [place], [address] Lymphocytes/100 WBC (Bld) 7.9 % Low 19-41 [facility] Comment on above: Performed By: #### L 500.2500, L100.0100 ####[facility] [address] [place], [address] MCH (RBC) [Entitic mass] 25.2 pg Low 27.0-32.0 [facility] Comment on above: Performed By: #### L 500.2500, L100.0100 ####[facility] [address] [place], [address] MCHC (RBC) [Mass/Vol] 28.7 g/dL Low 32-36 [facility] Comment on above: Performed By: #### L 500.2500, L100.0100 ####[facility] [address] [place], [address] MCV (RBC) [Entitic vol] 88.0 fL Normal 81-99 [facility] Comment on above: Performed By: #### L 500.2500, L100.0100 ####[facility] [address] [place], [address] Monocytes/100 WBC (Bld) 5.5 % Normal 0-10 [facility] Comment on above: Performed By: #### L 500.2500, L100.0100 ####[facility] [address] [place], [address] Neutrophils/100 WBC (Bld) 81.1 % High 47-70 [facility] Comment on above: Performed By: #### L 500.2500, L100.0100 ####[facility] [address] [place], [address] Nucleated RBC (Bld) [#/Vol] 0 10*3/uL Normal 0-5 [facility] Comment on above: Performed By: #### L 500.2500, L100.0100 ####[facility] [address] [place], [address] Platelet mean volume (Bld) [Entitic vol] 9.2 fL Normal 6.2-12.0 [facility] Comment on above: Performed By: #### L 500.2500, L100.0100 ####[facility] [address] [place], [address] Platelets (Bld) [#/Vol] 265 10*3/uL Normal 150-450 [facility] Comment on above: Performed By: #### L 500.2500, L100.0100 ####[facility] [address] [place], [address] RBC (Bld) [#/Vol] 3.17 10*6/uL Low 4.2-5.4 [facility] Comment on above: Performed By: #### L 500.2500, L100.0100 ####[facility] [address] [place], [address] RDW SD 55.2 fl High 35.1-43.9 [facility] Comment on above: Performed By: #### L 500.2500, L100.0100 ####[facility] [address] [place], [address] WBC (Bld) [#/Vol] 11.1 10*3/uL High 4.4-11.0 [facility] Comment on above: Performed By: #### L 500.2500, L100.0100 ####[facility] [address] [place], [address] Absolute Neut Normal 2.0-7.7 [facility] Comment on above: Result Comment: Canc elled via OM: Order cancelled - Patient discharged Performed By: #### L 500.2500, L100.0100 ####[facility] [address] [place], [address] HCT Normal 37-47 [facility] Comment on above: Result Comment: Canc elled via OM: Order cancelled - Patient discharged Performed By: #### L 500.2500, L100.0100 ####[facility] [address] [place], [address] HGB Normal 12.0-15.0 [facility] Comment on above: Result Comment: Canc elled via OM: Order cancelled - Patient discharged Performed By: #### L 500.2500, L100.0100 ####[facility] [address] [place], [address] MCH Normal 27.0-32.0 [facility] Comment on above: Result Comment: Canc elled via OM: Order cancelled - Patient discharged Performed By: #### L 500.2500, L100.0100 ####[facility] [address] [place], [address] MCHC Normal 32-36 [facility] Comment on above: Result Comment: Canc elled via OM: Order cancelled - Patient discharged Performed By: #### L 500.2500, L100.0100 ####[facility] [address] [place], [address] MCV Normal 81-99 [facility] Comment on above: Result Comment: Canc elled via OM: Order cancelled - Patient discharged Performed By: #### L 500.2500, L100.0100 ####[facility] [address] [place], [address] NEUT% Normal 47-70 [facility] Comment on above: Result Comment: Canc elled via OM: Order cancelled - Patient discharged Performed By: #### L 500.2500, L100.0100 ####[facility] [address] [place], [address] PLT Normal 150-450 [facility] Comment on above: Result Comment: Canc elled via OM: Order cancelled - Patient discharged Performed By: #### L 500.2500, L100.0100 ####[facility] [address] [place], [address] RBC Normal 4.2-5.4 [facility] Comment on above: Result Comment: Canc elled via OM: Order cancelled - Patient discharged Performed By: #### L 500.2500, L100.0100 ####[facility] [address] [place], [address] RDW CV Normal 11.6-14.6 [facility] Comment on above: Result Comment: Canc elled via OM: Order cancelled - Patient discharged Performed By: #### L 500.2500, L100.0100 ####[facility] [address] [place], [address] RDW SD Normal 35.1-43.9 [facility] Comment on above: Result Comment: Canc elled via OM: Order cancelled - Patient discharged Performed By: #### L 500.2500, L100.0100 ####[facility] [address] [place], [address] WBC Normal 4.4-11.0 [facility] Comment on above: Result Comment: Canc elled via OM: Order cancelled - Patient discharged Performed By: #### L 500.2500, L100.0100 ####[facility] [address] [place], [address] EGD Reporton 08-03-2024 EGD Report Normal [facility] MR/POSTOP.ANEon 08-03-2024 MR/POSTOP.ANE Normal [facility] MR/RFPBOAJM7eb 08-03-2024 MR/POSTOPAN2 Normal [facility] Basic Metabolic Profile (BMP )on 08-02-2024 BUN/CRE 33.3 RATIO High 10-20 [facility] Comment on above: Performed By: #### L 500.2500, L100.0500 ####[facility] [address] [place], [address] Calcium [Mass/Vol] 8.9 mg/dL Normal 7.6-11.0 [facility] Comment on above: Performed By: #### L 500.2500, L100.0500 ####[facility] [address] [place], [address] Chloride [Moles/Vol] 101 mmol/L Normal 98-108 [facility] Comment on above: Performed By: #### L 500.2500, L100.0500 ####[facility] [address] [place], [address] CO2 [Moles/Vol] 23.8 mmol/L Normal 21.0-32.0 [facility] Comment on above: Performed By: #### L 500.2500, L100.0500 ####[facility] [address] [place], [address] Creatinine [Mass/Vol] 1.37 mg/dL High 0.70-1.20 [facility] Comment on above: Performed By: #### L 500.2500, L100.0500 ####[facility] [address] [place], [address] ECRCL 30.92 ml/min Low 50-250 [facility] Comment on above: Performed By: #### L 500.2500, L100.0500 ####[facility] [address] [place], [address] GAP 9 Normal 5-15 [facility] Comment on above: Performed By: #### L 500.2500, L100.0500 ####[facility] [address] [place], [address] GFR/1.73 sq M.predicted among non-blacks MDRD (S/P/Bld) [Vol rate/Area] 44 mL/min/{1.73_m2} Low >60 [facility] Comment on above: Result Comment: mL/m in/1.73m2 CKD-EPI Creatinine Equation (2020) Performed By: #### L 500.2500, L100.0500 ####[facility] [address] [place], [address] Glucose [Mass/Vol] 54 mg/dL Low 70-99 [facility] Comment on above: Performed By: #### L 500.2500, L100.0500 ####[facility] [address] [place], [address] Potassium [Moles/Vol] 5.3 mmol/L High 3.3-5.1 [facility] Comment on above: Performed By: #### L 500.2500, L100.0500 ####[facility] [address] [place], [address] Sodium [Moles/Vol] 134 mmol/L Normal 133-145 [facility] Comment on above: Performed By: #### L 500.2500, L100.0500 ####[facility] [address] [place], [address] Urea nitrogen [Mass/Vol] 46 mg/dL High 4-19 [facility] Comment on above: Performed By: #### L 500.2500, L100.0500 ####[facility] [address] [place], [address] BUN Normal -19 [facility] Comment on above: Result Comment: Canc elled via OM: Order cancelled - Patient discharged Performed By: #### L 500.2500, L100.0100 ####[facility] [address] [place], [address] BUN/CRE Normal 10-20 [facility] Comment on above: Result Comment: Canc elled via OM: Order cancelled - Patient discharged Performed By: #### L 500.2500, L100.0100 ####[facility] [address] [place], [address] Calcium Normal 7.6-11.0 [facility] Comment on above: Result Comment: Canc elled via OM: Order cancelled - Patient discharged Performed By: #### L 500.2500, L100.0100 ####[facility] [address] [place], [address] CL Normal 98-107 [facility] Comment on above: Result Comment: Canc elled via OM: Order cancelled - Patient discharged Performed By: #### L 500.2500, L100.0100 ####[facility] [address] [place], [address] CO2 Normal 21.0-32.0 [facility] Comment on above: Result Comment: Canc elled via OM: Order cancelled - Patient discharged Performed By: #### L 500.2500, L100.0100 ####[facility] [address] [place], [address] CREAT,SERUM Normal 0.70-1.20 [facility] Comment on above: Result Comment: Canc elled via OM: Order cancelled - Patient discharged Performed By: #### L 500.2500, L100.0100 ####[facility] [address] [place], [address] eGFR Normal >60 [facility] Comment on above: Result Comment: Canc elled via OM: Order cancelled - Patient discharged Performed By: #### L 500.2500, L100.0100 ####[facility] [address] [place], [address] GAP Normal 5-15 [facility] Comment on above: Result Comment: Canc elled via OM: Order cancelled - Patient discharged Performed By: #### L 500.2500, L100.0100 ####[facility] [address] [place], [address] GLU Normal 70-99 [facility] Comment on above: Result Comment: Canc elled via OM: Order cancelled - Patient discharged Performed By: #### L 500.2500, L100.0100 ####[facility] [address] [place], [address] Potassium Normal 3.5-5.1 [facility] Comment on above: Result Comment: Canc elled via OM: Order cancelled - Patient discharged Performed By: #### L 500.2500, L100.0100 ####[facility] [address] [place], [address] Basic Metabolic Profile (BMP) Normal 136-145 [facility] Comment on above: Result Comment: Canc elled via OM: Order cancelled - Patient discharged Performed By: #### L 500.2500, L100.0100 ####[facility] [address] [place], [address] CBC W/Diff, Automatedon 03-0 Absolute Neut Normal 2.0-7.7 [facility] Comment on above: Result Comment: Canc elled via OM: Order cancelled - Patient discharged Performed By: #### L 500.2500, L100.0100 ####[facility] [address] [place], [address] HCT Normal 37-47 [facility] Comment on above: Result Comment: Canc elled via OM: Order cancelled - Patient discharged Performed By: #### L 500.2500, L100.0100 ####[facility] [address] [place], [address] HGB Normal 12.0-15.0 [facility] Comment on above: Result Comment: Canc elled via OM: Order cancelled - Patient discharged Performed By: #### L 500.2500, L100.0100 ####[facility] [address] [place], [address] MCH Normal 27.0-32.0 [facility] Comment on above: Result Comment: Canc elled via OM: Order cancelled - Patient discharged Performed By: #### L 500.2500, L100.0100 ####[facility] [address] [place], [address] MCHC Normal 32-36 [facility] Comment on above: Result Comment: Canc elled via OM: Order cancelled - Patient discharged Performed By: #### L 500.2500, L100.0100 ####[facility] [address] [place], [address] MCV Normal 81-99 [facility] Comment on above: Result Comment: Canc elled via OM: Order cancelled - Patient discharged Performed By: #### L 500.2500, L100.0100 ####[facility] [address] [place], [address] NEUT% Normal 47-70 [facility] Comment on above: Result Comment: Canc elled via OM: Order cancelled - Patient discharged Performed By: #### L 500.2500, L100.0100 ####[facility] [address] [place], [address] PLT Normal 150-450 [facility] Comment on above: Result Comment: Canc elled via OM: Order cancelled - Patient discharged Performed By: #### L 500.2500, L100.0100 ####[facility] [address] [place], [address] RBC Normal 4.2-5.4 [facility] Comment on above: Result Comment: Canc elled via OM: Order cancelled - Patient discharged Performed By: #### L 500.2500, L100.0100 ####[facility] [address] [place], [address] RDW CV Normal 11.6-14.6 [facility] Comment on above: Result Comment: Canc elled via OM: Order cancelled - Patient discharged Performed By: #### L 500.2500, L100.0100 ####[facility] [address] [place], [address] RDW SD Normal 35.1-43.9 [facility] Comment on above: Result Comment: Canc elled via OM: Order cancelled - Patient discharged Performed By: #### L 500.2500, L100.0100 ####[facility] [address] [place], [address] WBC Normal 4.4-11.0 [facility] Comment on above: Result Comment: Canc elled via OM: Order cancelled - Patient discharged Performed By: #### L 500.2500, L100.0100 ####[facility] [address] [place], [address] CBC-Complete Blood Cnt No Di ffon 08-02-2024 Erythrocyte distribution width (RBC) [Ratio] 17.5 % High 11.6-14.6 [facility] Comment on above: Performed By: #### L 500.2500, L100.0500 ####[facility] [address] [place], [address] Hematocrit (Bld) [Volume fraction] 23.8 % Low 37-47 [facility] Comment on above: Performed By: #### L 500.2500, L100.0500 ####[facility] [address] [place], [address] Hemoglobin (Bld) [Mass/Vol] 7.1 g/dL Low 12.0-15.0 [facility] Comment on above: Performed By: #### L 500.2500, L100.0500 ####[facility] [address] [place], [address] MCH (RBC) [Entitic mass] 25.8 pg Low 27.0-32.0 [facility] Comment on above: Performed By: #### L 500.2500, L100.0500 ####[facility] [address] [place], [address] MCHC (RBC) [Mass/Vol] 29.8 g/dL Low 32-36 [facility] Comment on above: Performed By: #### L 500.2500, L100.0500 ####[facility] [address] [place], [address] MCV (RBC) [Entitic vol] 86.5 fL Normal 81-99 [facility] Comment on above: Performed By: #### L 500.2500, L100.0500 ####[facility] [address] [place], [address] Platelet mean volume (Bld) [Entitic vol] 9.6 fL Normal 6.2-12.0 [facility] Comment on above: Performed By: #### L 500.2500, L100.0500 ####[facility] [address] [place], [address] Platelets (Bld) [#/Vol] 284 10*3/uL Normal 150-450 [facility] Comment on above: Performed By: #### L 500.2500, L100.0500 ####[facility] [address] [place], [address] RBC (Bld) [#/Vol] 2.75 10*6/uL Low 4.2-5.4 [facility] Comment on above: Performed By: #### L 500.2500, L100.0500 ####[facility] [address] [place], [address] RDW SD 55.0 fl High 35.1-43.9 [facility] Comment on above: Performed By: #### L 500.2500, L100.0500 ####[facility] [address] [place], [address] WBC (Bld) [#/Vol] 11.7 10*3/uL High 4.4-11.0 [facility] Comment on above: Performed By: #### L 500.2500, L100.0500 ####[facility] [address] [place], [address] HH, Hemoglobin AND Hematocri ton 08-02-2024 Hematocrit (Bld) [Volume fraction] 26.9 % Low 37-47 [facility] Comment on above: Performed By: #### L 100.0600 ####[facility] [address] [place], [address] Hemoglobin (Bld) [Mass/Vol] 7.9 g/dL Low 12.0-15.0 [facility] Comment on above: Performed By: #### L 100.0600 ####[facility] [address] [place], [address] ,Urineon 08-02-2024 Beta HCG ( test) Ql (U) Negative Normal [facility] Comment on above: Order Comment: Anyon chacho has had a period within [id number] Result Comment: Very dilute urine specimens, as indicated by a low specificgravity, may not contain sales representative consultant levels of hCG.If is still suspected, a first morning urinespecimen should be collected 48 hours later and tested. Performed By: #### L 400.7600 ####[facility] [address] [place], [address] Urine testOrdered By: Nick Gallegos on 08-02-2024 HCG ( test) Ql (U) Negative [facility] Urine test Negative [facility] Basic Metabolic Profile (BMP )on 08-01-2024 BUN Normal 4-19 [facility] Comment on above: Result Comment: @CAN CELED Performed By: #### L 500.2500 ####[facility] [address] [place], [address] BUN/CRE Normal 10-20 [facility] Comment on above: Result Comment: @CAN CELED Performed By: #### L 500.2500 ####[facility] [address] [place], [address] Calcium Normal 7.6-11.0 [facility] Comment on above: Result Comment: @CAN CELED Performed By: #### L 500.2500 ####[facility] [address] [place], [address] CL Normal 98-108 [place] [facility] Comment on above: Result Comment: @CAN CELED Performed By: #### L 500.2500 ####[facility] [address] [place], [address] CO2 Normal 21.0-32.0 [facility] Comment on above: Result Comment: @CAN CELED Performed By: #### L 500.2500 ####[facility] [address] [place], [address] CREAT,SERUM Normal 0.70-1.20 [facility] Comment on above: Result Comment: @CAN CELED Performed By: #### L 500.2500 ####[facility] [address] [place], [address] eGFR Normal >60 [facility] Comment on above: Result Comment: @CAN CELED Performed By: #### L 500.2500 ####[facility] [address] [place], [address] GAP Normal 5-15 [facility] Comment on above: Result Comment: @CAN CELED Performed By: #### L 500.2500 ####[facility] [address] [place], [address] GLU Normal 70-99 [facility] Comment on above: Result Comment: @CAN CELED Performed By: #### L 500.2500 ####[facility] [address] [place], [address] Potassium Normal 3.3-5.1 [facility] Comment on above: Result Comment: @CAN CELED Performed By: #### L 500.2500 ####[facility] [address] [place], [address] Basic Metabolic Profile (BMP) Normal 133-145 [facility] Comment on above: Result Comment: @CAN CELED Performed By: #### L 500.2500 ####[facility] [address] [place], [address] BUN/CRE 34.4 RATIO High 10-20 [facility] Comment on above: Performed By: #### L 500.2500, L100.0500 ####[facility] [address] [place], [address] Calcium [Mass/Vol] 8.8 mg/dL Normal 7.6-11.0 [facility] Comment on above: Performed By: #### L 500.2500, L100.0500 ####[facility] [address] [place], [address] Chloride [Moles/Vol] 97 mmol/L Low 98-108 [facility] Comment on above: Performed By: #### L 500.2500, L100.0500 ####[facility] [address] [place], [address] CO2 [Moles/Vol] 18.2 mmol/L Low 21.0-32.0 [facility] Comment on above: Performed By: #### L 500.2500, L100.0500 ####[facility] [address] [place], [address] Creatinine [Mass/Vol] 1.97 mg/dL High 0.70-1.20 [facility] Comment on above: Performed By: #### L 500.2500, L100.0500 ####[facility] [address] [place], [address] ECRCL 21.83 ml/min Low 50-250 [facility] Comment on above: Performed By: #### L 500.2500, L100.0500 ####[facility] [address] [place], [address] GAP 13 Normal 5-15 [facility] Comment on above: Performed By: #### L 500.2500, L100.0500 ####[facility] [address] [place], [address] GFR/1.73 sq M.predicted among non-blacks MDRD (S/P/Bld) [Vol rate/Area] 28 mL/min/{1.73_m2} Low >60 [facility] Comment on above: Result Comment: mL/m in/1.73m2 CKD-EPI Creatinine Equation (2020) Performed By: #### L 500.2500, L100.0500 ####[facility] [address] [place], [address] Glucose [Mass/Vol] 75 mg/dL Normal 70-99 [facility] Comment on above: Performed By: #### L 500.2500, L100.0500 ####[facility] [address] [place], [address] Potassium [Moles/Vol] 6.4 mmol/L Invalid Interpretation Code 3.3-5.1 [facility] Comment on above: Result Comment: Crit ical Result(s) Called at:0630 by:WALTER KENNEDY TO JANAE??Results read back by same. Performed By: #### L 500.2500, L100.0500 ####[facility] [address] [place], [address] Sodium [Moles/Vol] 128 mmol/L Low 133-145 [facility] Comment on above: Performed By: #### L 500.2500, L100.0500 ####[facility] [address] [place], [address] Urea nitrogen [Mass/Vol] 68 mg/dL High 4-19 [facility] Comment on above: Performed By: #### L 500.2500, L100.0500 ####[facility] [address] [place], [address] BUN Normal 4-19 [facility] Comment on above: Result Comment: Canc elled via OM: Order cancelled - Patient discharged Performed By: #### L 500.2500, L100.0100 ####[facility] [address] [place], [address] BUN/CRE Normal 10-20 [facility] Comment on above: Result Comment: Canc elled via OM: Order cancelled - Patient discharged Performed By: #### L 500.2500, L100.0100 ####[facility] [address] [place], [address] Calcium Normal 7.6-11.0 [facility] Comment on above: Result Comment: Canc elled via OM: Order cancelled - Patient discharged Performed By: #### L 500.2500, L100.0100 ####[facility] [address] [place], [address] CL Normal 98-107 [facility] Comment on above: Result Comment: Canc elled via OM: Order cancelled - Patient discharged Performed By: #### L 500.2500, L100.0100 ####[facility] [address] [place], [address] CO2 Normal 21.0-32.0 [facility] Comment on above: Result Comment: Canc elled via OM: Order cancelled - Patient discharged Performed By: #### L 500.2500, L100.0100 ####[facility] [address] [place], [address] CREAT,SERUM Normal 0.70-1.20 [facility] Comment on above: Result Comment: Canc elled via OM: Order cancelled - Patient discharged Performed By: #### L 500.2500, L100.0100 ####[facility] [address] [place], [address] eGFR Normal >60 [facility] Comment on above: Result Comment: Canc elled via OM: Order cancelled - Patient discharged Performed By: #### L 500.2500, L100.0100 ####[facility] [address] [place], [address] GAP Normal 5-15 [facility] Comment on above: Result Comment: Canc elled via OM: Order cancelled - Patient discharged Performed By: #### L 500.2500, L100.0100 ####[facility] [address] [place], [address] GLU Normal 70-99 [facility] Comment on above: Result Comment: Canc elled via OM: Order cancelled - Patient discharged Performed By: #### L 500.2500, L100.0100 ####[facility] [address] [place], [address] Potassium Normal 3.5-5.1 [facility] Comment on above: Result Comment: Canc elled via OM: Order cancelled - Patient discharged Performed By: #### L 500.2500, L100.0100 ####[facility] [address] [place], [address] Basic Metabolic Profile (BMP) Normal 136-145 [facility] Comment on above: Result Comment: Canc elled via OM: Order cancelled - Patient discharged Performed By: #### L 500.2500, L100.0100 ####[facility] [address] [place], [address] CBC W/Diff, Automatedon 03-0 -2024 Absolute Neut Normal 2.0-7.7 [facility] Comment on above: Result Comment: Canc elled via OM: Order cancelled - Patient discharged Performed By: #### L 500.2500, L100.0100 ####[facility] [address] [place], [address] HCT Normal 37-47 [facility] Comment on above: Result Comment: Canc elled via OM: Order cancelled - Patient discharged Performed By: #### L 500.2500, L100.0100 ####[facility] [address] [place], [address] HGB Normal 12.0-15.0 [facility] Comment on above: Result Comment: Canc elled via OM: Order cancelled - Patient discharged Performed By: #### L 500.2500, L100.0100 ####[facility] [address] [place], [address] MCH Normal 27.0-32.0 [facility] Comment on above: Result Comment: Canc elled via OM: Order cancelled - Patient discharged Performed By: #### L 500.2500, L100.0100 ####[facility] [address] [place], [address] MCHC Normal 32-36 [facility] Comment on above: Result Comment: Canc elled via OM: Order cancelled - Patient discharged Performed By: #### L 500.2500, L100.0100 ####[facility] [address] [place], [address] MCV Normal 81-99 [facility] Comment on above: Result Comment: Canc elled via OM: Order cancelled - Patient discharged Performed By: #### L 500.2500, L100.0100 ####[facility] [address] [place], [address] NEUT% Normal 47-70 [facility] Comment on above: Result Comment: Canc elled via OM: Order cancelled - Patient discharged Performed By: #### L 500.2500, L100.0100 ####[facility] [address] [place], [address] PLT Normal 150-450 [facility] Comment on above: Result Comment: Canc elled via OM: Order cancelled - Patient discharged Performed By: #### L 500.2500, L100.0100 ####[facility] [address] [place], [address] RBC Normal 4.2-5.4 [facility] Comment on above: Result Comment: Canc elled via OM: Order cancelled - Patient discharged Performed By: #### L 500.2500, L100.0100 ####[facility] [address] [place], [address] RDW CV Normal 11.6-14.6 [facility] Comment on above: Result Comment: Canc elled via OM: Order cancelled - Patient discharged Performed By: #### L 500.2500, L100.0100 ####[facility] [address] [place], [address] RDW SD Normal 35.1-43.9 [facility] Comment on above: Result Comment: Canc elled via OM: Order cancelled - Patient discharged Performed By: #### L 500.2500, L100.0100 ####[facility] [address] [place], [address] WBC Normal 4.4-11.0 [facility] Comment on above: Result Comment: Canc elled via OM: Order cancelled - Patient discharged Performed By: #### L 500.2500, L100.0100 ####[facility] [address] [place], [address] CBC-Complete Blood Cnt No Di ffon 08-01-2024 Erythrocyte distribution width (RBC) [Ratio] 17.6 % High 11.6-14.6 [facility] Comment on above: Performed By: #### L 500.2500, L100.0500 ####[facility] [address] [place], [address] Hematocrit (Bld) [Volume fraction] 27.2 % Low 37-47 [facility] Comment on above: Performed By: #### L 500.2500, L100.0500 ####[facility] [address] [place], [address] Hemoglobin (Bld) [Mass/Vol] 8.1 g/dL Low 12.0-15.0 [facility] Comment on above: Performed By: #### L 500.2500, L100.0500 ####[facility] [address] [place], [address] MCH (RBC) [Entitic mass] 26.0 pg Low 27.0-32.0 [facility] Comment on above: Performed By: #### L 500.2500, L100.0500 ####[facility] [address] [place], [address] MCHC (RBC) [Mass/Vol] 29.8 g/dL Low 32-36 [facility] Comment on above: Performed By: #### L 500.2500, L100.0500 ####[facility] [address] [place], [address] MCV (RBC) [Entitic vol] 87.5 fL Normal 81-99 [facility] Comment on above: Performed By: #### L 500.2500, L100.0500 ####[facility] [address] [place], [address] Platelet mean volume (Bld) [Entitic vol] 9.3 fL Normal 6.2-12.0 [facility] Comment on above: Performed By: #### L 500.2500, L100.0500 ####[facility] [address] [place], [address] Platelets (Bld) [#/Vol] 230 10*3/uL Normal 150-450 [facility] Comment on above: Performed By: #### L 500.2500, L100.0500 ####[facility] [address] [place], [address] RBC (Bld) [#/Vol] 3.11 10*6/uL Low 4.2-5.4 [facility] Comment on above: Performed By: #### L 500.2500, L100.0500 ####[facility] [address] [place], [address] RDW SD 56.1 fl High 35.1-43.9 [facility] Comment on above: Performed By: #### L 500.2500, L100.0500 ####[facility] [address] [place], [address] WBC (Bld) [#/Vol] 17.7 10*3/uL High 4.4-11.0 [facility] Comment on above: Performed By: #### L 500.2500, L100.0500 ####[facility] [address] [place], [address] Consultation - Nephrologyon 08-01-2024 Consultation - Nephrology Normal [facility] MR/CON.PCM.GIon 08-01-2024 MR/CON.PCM.GI Normal [facility] Abdomen/Pelvis W IV Cont ONL Yon 07-31-2024 Abdomen/Pelvis W IV Cont ONLY Normal [facility] Activated partial thrombopla stin time (aPTT) in platelet poor plasma by coagulation aOrdered By: Noah Avery on 07-31-2024 aPTT Coag (PPP) [Time] 42.1 s High 24.1-36.2 [facility] [id number] 07-31-2024 ANTIBODY ID Normal [facility] Comment on above: Order Comment: HGI Result Comment: CFYA Performed By: #### B KENDRA GALINDO, [id number] ####[facility] [address] [place], [address] BRCon 07-31-2024 RC Normal [facility] Comment on above: Result Comment: [id number] ON RC XM [id number] ON RC XM COMPATIBLE Performed By: #### B KENDRA GALINDO, [id number] ####[facility] [address] [place], [address] Basic Metabolic Profile (BMP )on 07-31-2024 BUN Normal 4-19 [facility] Comment on above: Result Comment: Canc elled via OM: Order cancelled - Patient discharged Performed By: #### L 100.0100, L500.2500 ####[facility] [address] [place], [address] BUN/CRE Normal 10-20 [facility] Comment on above: Result Comment: Canc elled via OM: Order cancelled - Patient discharged Performed By: #### L 100.0100, L500.2500 ####[facility] [address] [place], [address] Calcium Normal 7.6-11.0 [facility] Comment on above: Result Comment: Canc elled via OM: Order cancelled - Patient discharged Performed By: #### L 100.0100, L500.2500 ####[facility] [address] [place], [address] CL Normal 98-107 [facility] Comment on above: Result Comment: Canc elled via OM: Order cancelled - Patient discharged Performed By: #### L 100.0100, L500.2500 ####[facility] [address] [place], [address] CO2 Normal 21.0-32.0 [facility] Comment on above: Result Comment: Canc elled via OM: Order cancelled - Patient discharged Performed By: #### L 100.0100, L500.2500 ####[facility] [address] [place], [address] CREAT,SERUM Normal 0.70-1.20 [facility] Comment on above: Result Comment: Canc elled via OM: Order cancelled - Patient discharged Performed By: #### L 100.0100, L500.2500 ####[facility] [address] [place], [address] eGFR Normal >60 [facility] Comment on above: Result Comment: Canc elled via OM: Order cancelled - Patient discharged Performed By: #### L 100.0100, L500.2500 ####[facility] [address] [place], [address] GAP Normal 5-15 [facility] Comment on above: Result Comment: Canc elled via OM: Order cancelled - Patient discharged Performed By: #### L 100.0100, L500.2500 ####[facility] [address] [place], [address] GLU Normal 70-99 [facility] Comment on above: Result Comment: Canc elled via OM: Order cancelled - Patient discharged Performed By: #### L 100.0100, L500.2500 ####[facility] [address] [place], [address] Potassium Normal 3.5-5.1 [facility] Comment on above: Result Comment: Canc elled via OM: Order cancelled - Patient discharged Performed By: #### L 100.0100, L500.2500 ####[facility] [address] [place], [address] Basic Metabolic Profile (BMP) Normal 136-145 [facility] Comment on above: Result Comment: Canc elled via OM: Order cancelled - Patient discharged Performed By: #### L 100.0100, L500.2500 ####[facility] [address] [place], [address] CBC W/Diff, Automatedon 03-0 5-2025 Absolute Lymph 0.40 X10 3/uL Low 0.83-4.51 [facility] Comment on above: Performed By: #### L 100.0100, L501.2450, L500.4050 ####[facility] [address] [place], [address] Absolute Neut 9.3 X10 3/uL High 2.0-7.7 [facility] Comment on above: Performed By: #### L 100.0100, L501.2450, L500.4050 ####[facility] [address] [place], [address] Basophils/100 WBC (Bld) 0.3 % Normal 0-1 [facility] Comment on above: Performed By: #### L 100.0100, L501.2450, L500.4050 ####[facility] [address] [place], [address] Eosinophils/100 WBC (Bld) 0.5 % Normal 0-5 [facility] Comment on above: Performed By: #### L 100.0100, L501.2450, L500.4050 ####[facility] [address] [place], [address] Erythrocyte distribution width (RBC) [Ratio] 17.3 % High 11.6-14.6 [facility] Comment on above: Performed By: #### L 100.0100, L501.2450, L500.4050 ####[facility] [address] [place], [address] Hematocrit (Bld) [Volume fraction] 25.7 % Low 37-47 [facility] Comment on above: Performed By: #### L 100.0100, L501.2450, L500.4050 ####[facility] [address] [place], [address] Hemoglobin (Bld) [Mass/Vol] 7.7 g/dL Low 12.0-15.0 [facility] Comment on above: Performed By: #### L 100.0100, L501.2450, L500.4050 ####[facility] [address] [place], [address] IG% 3.200 High 0.0-0.9 [facility] Comment on above: Result Comment: IG% - Immature Granulocytes (promyelocytes, myelocytes andmetamyelocytes) > 1% indicates that a LEFT SHIFT is Present. Performed By: #### L 100.0100, L501.2450, L500.4050 ####[facility] [address] [place], [address] Lymphocytes/100 WBC (Bld) 3.7 % Low 19-41 [facility] Comment on above: Performed By: #### L 100.0100, L501.2450, L500.4050 ####[facility] [address] [place], [address] MCH (RBC) [Entitic mass] 25.7 pg Low 27.0-32.0 [facility] Comment on above: Performed By: #### L 100.0100, L501.2450, L500.4050 ####[facility] [address] [place], [address] MCHC (RBC) [Mass/Vol] 30.0 g/dL Low 32-36 [facility] Comment on above: Performed By: #### L 100.0100, L501.2450, L500.4050 ####[facility] [address] [place], [address] MCV (RBC) [Entitic vol] 85.7 fL Normal 81-99 [facility] Comment on above: Performed By: #### L 100.0100, L501.2450, L500.4050 ####[facility] [address] [place], [address] Monocytes/100 WBC (Bld) 5.8 % Normal 0-10 [facility] Comment on above: Performed By: #### L 100.0100, L501.2450, L500.4050 ####[facility] [address] [place], [address] Neutrophils/100 WBC (Bld) 86.5 % High 47-70 [facility] Comment on above: Performed By: #### L 100.0100, L501.2450, L500.4050 ####[facility] [address] [place], [address] Nucleated RBC (Bld) [#/Vol] 0 10*3/uL Normal 0-5 [facility] Comment on above: Performed By: #### L 100.0100, L501.2450, L500.4050 ####[facility] [address] [place], [address] Platelet mean volume (Bld) [Entitic vol] 9.7 fL Normal 6.2-12.0 [facility] Comment on above: Performed By: #### L 100.0100, L501.2450, L500.4050 ####[facility] [address] [place], [address] Platelets (Bld) [#/Vol] 169 10*3/uL Normal 150-450 [facility] Comment on above: Performed By: #### L 100.0100, L501.2450, L500.4050 ####[facility] [address] [place], [address] RBC (Bld) [#/Vol] 3.00 10*6/uL Low 4.2-5.4 [facility] Comment on above: Performed By: #### L 100.0100, L501.2450, L500.4050 ####[facility] [address] [place], [address] RDW SD 53.7 fl High 35.1-43.9 [facility] Comment on above: Performed By: #### L 100.0100, L501.2450, L500.4050 ####[facility] [address] [place], [address] WBC (Bld) [#/Vol] 10.7 10*3/uL Normal 4.4-11.0 [facility] Comment on above: Performed By: #### L 100.0100, L501.2450, L500.4050 ####[facility] [address] [place], [address] Absolute Neut Normal 2.0-7.7 [facility] Comment on above: Result Comment: Canc elled via OM: Order cancelled - Patient discharged Performed By: #### L 100.0100, L500.2500 ####[facility] [address] [place], [address] HCT Normal 37-47 [facility] Comment on above: Result Comment: Canc elled via OM: Order cancelled - Patient discharged Performed By: #### L 100.0100, L500.2500 ####[facility] [address] [place], [address] HGB Normal 12.0-15.0 [facility] Comment on above: Result Comment: Canc elled via OM: Order cancelled - Patient discharged Performed By: #### L 100.0100, L500.2500 ####[facility] [address] [place], [address] MCH Normal 27.0-32.0 [facility] Comment on above: Result Comment: Canc elled via OM: Order cancelled - Patient discharged Performed By: #### L 100.0100, L500.2500 ####[facility] [address] [place], [address] MCHC Normal 32-36 [facility] Comment on above: Result Comment: Canc elled via OM: Order cancelled - Patient discharged Performed By: #### L 100.0100, L500.2500 ####[facility] [address] [place], [address] MCV Normal 81-99 [facility] Comment on above: Result Comment: Canc elled via OM: Order cancelled - Patient discharged Performed By: #### L 100.0100, L500.2500 ####[facility] [address] [place], [address] NEUT% Normal 47-70 [facility] Comment on above: Result Comment: Canc elled via OM: Order cancelled - Patient discharged Performed By: #### L 100.0100, L500.2500 ####[facility] [address] [place], [address] PLT Normal 150-450 [facility] Comment on above: Result Comment: Canc elled via OM: Order cancelled - Patient discharged Performed By: #### L 100.0100, L500.2500 ####[facility] [address] [place], [address] RBC Normal 4.2-5.4 [facility] Comment on above: Result Comment: Canc elled via OM: Order cancelled - Patient discharged Performed By: #### L 100.0100, L500.2500 ####[facility] [address] [place], [address] RDW CV Normal 11.6-14.6 [facility] Comment on above: Result Comment: Canc elled via OM: Order cancelled - Patient discharged Performed By: #### L 100.0100, L500.2500 ####[facility] [address] [place], [address] RDW SD Normal 35.1-43.9 [facility] Comment on above: Result Comment: Canc elled via OM: Order cancelled - Patient discharged Performed By: #### L 100.0100, L500.2500 ####[facility] [address] [place], [address] WBC Normal 4.4-11.0 [facility] Comment on above: Result Comment: Canc elled via OM: Order cancelled - Patient discharged Performed By: #### L 100.0100, L500.2500 ####[facility] [address] [place], [address] Comprehensive Metabolic Prof ilon 07-31-2024 Albumin [Mass/Vol] 2.3 g/dL Low 3.4-4.8 [facility] Comment on above: Performed By: #### L 100.0100, L501.2450, L500.4050 ####[facility] [address] [place], [address] Albumin/Globulin [Mass ratio] 0.6 {ratio} Low 0.9-2.4 [facility] Comment on above: Performed By: #### L 100.0100, L501.2450, L500.4050 ####[facility] [address] [place], [address] ALK PHOS 66 U/L Normal 35-104 [facility] Comment on above: Performed By: #### L 100.0100, L501.2450, L500.4050 ####[facility] [address] [place], [address] ALT [Catalytic activity/Vol] U/L Normal <=34 [facility] Comment on above: Performed By: #### L 100.0100, L501.2450, L500.4050 ####[facility] [address] [place], [address] AST [Catalytic activity/Vol] 20 U/L Normal <=31 [facility] Comment on above: Performed By: #### L 100.0100, L501.2450, L500.4050 ####[facility] [address] [place], [address] Bilirubin [Mass/Vol] 0.19 mg/dL Normal 0.00-1.30 [facility] Comment on above: Performed By: #### L 100.0100, L501.2450, L500.4050 ####[facility] [address] [place], [address] BUN/CRE 30.7 RATIO High 10-20 [facility] Comment on above: Performed By: #### L 100.0100, L501.2450, L500.4050 ####[facility] [address] [place], [address] Calcium [Mass/Vol] 9.0 mg/dL Normal 7.6-11.0 [facility] Comment on above: Performed By: #### L 100.0100, L501.2450, L500.4050 ####[facility] [address] [place], [address] Chloride [Moles/Vol] 95 mmol/L Low 98-108 [facility] Comment on above: Performed By: #### L 100.0100, L501.2450, L500.4050 ####[facility] [address] [place], [address] CO2 [Moles/Vol] 24.7 mmol/L Normal 21.0-32.0 [facility] Comment on above: Performed By: #### L 100.0100, L501.2450, L500.4050 ####[facility] [address] [place], [address] Creatinine [Mass/Vol] 1.88 mg/dL High 0.70-1.20 [facility] Comment on above: Performed By: #### L 100.0100, L501.2450, L500.4050 ####[facility] [address] [place], [address] ECRCL 24.29 ml/min Low 50-250 [facility] Comment on above: Performed By: #### L 100.0100, L501.2450, L500.4050 ####[facility] [address] [place], [address] GAP 10 Normal 5-15 [facility] Comment on above: Performed By: #### L 100.0100, L501.2450, L500.4050 ####[facility] [address] [place], [address] GFR/1.73 sq M.predicted among non-blacks MDRD (S/P/Bld) [Vol rate/Area] 30 mL/min/{1.73_m2} Low >60 [facility] Comment on above: Result Comment: mL/m in/1.73m2 CKD-EPI Creatinine Equation (2020) Performed By: #### L 100.0100, L501.2450, L500.4050 ####[facility] [address] [place], [address] Globulin (S) [Mass/Vol] 3.6 g/dL Normal 2.2-4.2 [facility] Comment on above: Performed By: #### L 100.0100, L501.2450, L500.4050 ####[facility] [address] [place], [address] Glucose [Mass/Vol] 110 mg/dL High 70-99 [facility] Comment on above: Performed By: #### L 100.0100, L501.2450, L500.4050 ####[facility] [address] [place], [address] Potassium [Moles/Vol] 5.7 mmol/L High 3.3-5.1 [facility] Comment on above: Performed By: #### L 100.0100, L501.2450, L500.4050 ####[facility] [address] [place], [address] Sodium [Moles/Vol] 129 mmol/L Low 133-145 [facility] Comment on above: Performed By: #### L 100.0100, L501.2450, L500.4050 ####[facility] [address] [place], [address] T PROT 5.9 g/dL Normal 5.9-8.4 [facility] Comment on above: Performed By: #### L 100.0100, L501.2450, L500.4050 ####[facility] [address] [place], [address] Urea nitrogen [Mass/Vol] 58 mg/dL High 4-19 [facility] Comment on above: Performed By: #### L 100.0100, L501.2450, L500.4050 ####[facility] [address] [place], [address] Emergency Department Summary on 07-31-2024 Emergency Department Summary Normal [facility] H AND P Exam - Hospitaliston 03-05-2025 H&P Exam - Hospitalist Normal [facility] International normalized rat io (INR) calculationOrdered By: Noah Avery on 07-31-2024 International normalized ratio (INR) calculation 1.2 [facility] Lipaseon 07-31-2024 Lipase [Catalytic activity/Vol] 34 U/L Normal 13-75 [facility] Comment on above: Result Comment: Jorge L patterson note:LIPASE revised reference range effective 22.New Lipase methodology. Expected to produce lower valuesthan the previous assay method.NEW Reference Range: 13 - 75 U/L Performed By: #### L 100.0100, L501.2450, L500.4050 ####[facility] [address] [place], [address] Lipase measurementOrdered By : Noah Avery on 07-31-2024 Lipase measurement 34 U/L 13-75 [facility] Partial Thromboplast Timeon 07-31-2024 aPTT Coag (Bld) [Time] 42.1 s High 24.1-36.2 [facility] Comment on above: Performed By: #### L 300.4310, L300.3900 ####[facility] [address] [place], [address] Prothrombin Time w/INRon INR Coag (PPP) [Relative time] 1.2 {INR} Normal [facility] Comment on above: Performed By: #### L 300.4310, L300.3900 ####[facility] [address] [place], [address] PT Coag (PPP) [Time] 15.3 s High 11.7-14.9 [facility] Comment on above: Performed By: #### L 300.4310, L300.3900 ####[facility] [address] [place], [address] Prothrombin timeOrdered By: Noah Avery on 07-31-2024 PT Coag (PPP) [Time] 15.3 s High 11.7-14.9 [facility] Prothrombin time 15.3 SECONDS High 11.7-14.9 [facility] Type AND Screenon 07-31-2024 ABO and Rh group Nom (Bld) Blood group O Rh(D) positive Normal [facility] Comment on above: Order Comment: HGI Performed By: #### B TS, BRC, [id number] ####[facility] [address] [place], [place], [id number] aPTT Coag (PPP) [Time]Ordere d By: Noah Avery on 07-31-2024 Activated partial thromboplastin time (aPTT) in platelet poor plasma by coagulation a 42.1 Seconds High 24.1-36.2 [facility] Anion gap [Moles/Vol]Ordered By: Millieblanche Massey on 07-30-2024 Anion gap in Serum or Plasma 11 10-10 [facility] Anion gap in Serum or Plasma Ordered By: Millie Massey on 07-30-2024 Anion gap [Moles/Vol] 11 mmol/L 10-10 [facility] BUN/creatinine ratioOrdered By: Millie Massey on 07-30-2024 Urea nitrogen/Creatinine [Mass ratio] 26.1 mg/mg High 10- [facility] BUN/creatinine ratio 26.1 RATIO High 1020 [facility] Basic Metabolic Profile (BMP )on 07-30-2024 BUN/CRE 26.1 RATIO High [facility]20 [facility] Comment on above: Order Comment: 103.2 Performed By: #### L 506.1001, L503.0106, L500.2500, L500.4100, L501.5200, L100.0500, L501.9520 ####[facility] [address] [place], [place], [id number] Calcium [Mass/Vol] 8.6 mg/dL Normal 7.6-11.0 [facility] Comment on above: Order Comment: 103.2 Performed By: #### L 506.1001, L503.0106, L500.2500, L500.4100, L501.5200, L100.0500, L501.9520 ####[facility] [address] [place], [address] Chloride [Moles/Vol] 98 mmol/L Normal 98-108 [facility] Comment on above: Order Comment: 103.2 Performed By: #### L 506.1001, L503.0106, L500.2500, L500.4100, L501.5200, L100.0500, L501.9520 ####[facility] [address] [place], [address] CO2 [Moles/Vol] 24.2 mmol/L Normal 21.0-32.0 [facility] Comment on above: Order Comment: 103.2 Performed By: #### L 506.1001, L503.0106, L500.2500, L500.4100, L501.5200, L100.0500, L501.9520 ####[facility] [address] [place], [address] Creatinine [Mass/Vol] 1.47 mg/dL High 0.70-1.20 [facility] Comment on above: Order Comment: 103.2 Performed By: #### L 506.1001, L503.0106, L500.2500, L500.4100, L501.5200, L100.0500, L501.9520 ####[facility] [address] [place], [address] GAP 11 Normal 5-15 [facility] Comment on above: Order Comment: 103.2 Performed By: #### L 506.1001, L503.0106, L500.2500, L500.4100, L501.5200, L100.0500, L501.9520 ####[facility] [address] [place], [address] GFR/1.73 sq M.predicted among non-blacks MDRD (S/P/Bld) [Vol rate/Area] 40 mL/min/{1.73_m2} Low >60 [facility] Comment on above: Order Comment: 103.2 Result Comment: mL/m in/1.73m2 CKD-EPI Creatinine Equation (2020) Performed By: #### L 506.1001, L503.0106, L500.2500, L500.4100, L501.5200, L100.0500, L501.9520 ####[facility] [address] [place], [address] Glucose [Mass/Vol] 96 mg/dL Normal 70-99 [facility] Comment on above: Order Comment: 103.2 Performed By: #### L 506.1001, L503.0106, L500.2500, L500.4100, L501.5200, L100.0500, L501.9520 ####[facility] [address] [place], [address] Potassium [Moles/Vol] 4.4 mmol/L Normal 3.3-5.1 [facility] Comment on above: Order Comment: 103.2 Performed By: #### L 506.1001, L503.0106, L500.2500, L500.4100, L501.5200, L100.0500, L501.9520 ####[facility] [address] [place], [address] Sodium [Moles/Vol] 133 mmol/L Normal 133-145 [facility] Comment on above: Order Comment: 103.2 Performed By: #### L 506.1001, L503.0106, L500.2500, L500.4100, L501.5200, L100.0500, L501.9520 ####[facility] [address] [place], [address] Urea nitrogen [Mass/Vol] 38 mg/dL High 4-19 [facility] Comment on above: Order Comment: 103.2 Performed By: #### L 506.1001, L503.0106, L500.2500, L500.4100, L501.5200, L100.0500, L501.9520 ####[facility] [address] [place], [address] BUN Normal 4-19 [facility] Comment on above: Result Comment: Canc elled via OM: Order cancelled - Patient discharged Performed By: #### L 500.2500, L100.0100 ####[facility] [address] [place], [address] BUN/CRE Normal 10-20 [facility] Comment on above: Result Comment: Canc elled via OM: Order cancelled - Patient discharged Performed By: #### L 500.2500, L100.0100 ####[facility] [address] [place], [address] Calcium Normal 7.6-11.0 [facility] Comment on above: Result Comment: Canc elled via OM: Order cancelled - Patient discharged Performed By: #### L 500.2500, L100.0100 ####[facility] [address] [place], [address] CL Normal 98-107 [facility] Comment on above: Result Comment: Canc elled via OM: Order cancelled - Patient discharged Performed By: #### L 500.2500, L100.0100 ####[facility] [address] [place], [address] CO2 Normal 21.0-32.0 [facility] Comment on above: Result Comment: Canc elled via OM: Order cancelled - Patient discharged Performed By: #### L 500.2500, L100.0100 ####[facility] [address] [place], [address] CREAT,SERUM Normal 0.70-1.20 [facility] Comment on above: Result Comment: Canc elled via OM: Order cancelled - Patient discharged Performed By: #### L 500.2500, L100.0100 ####[facility] [address] [place], [address] eGFR Normal >60 [facility] Comment on above: Result Comment: Canc elled via OM: Order cancelled - Patient discharged Performed By: #### L 500.2500, L100.0100 ####[facility] [address] [place], [address] GAP Normal 5-15 [facility] Comment on above: Result Comment: Canc elled via OM: Order cancelled - Patient discharged Performed By: #### L 500.2500, L100.0100 ####[facility] [address] [place], [address] GLU Normal 70-99 [facility] Comment on above: Result Comment: Canc elled via OM: Order cancelled - Patient discharged Performed By: #### L 500.2500, L100.0100 ####[facility] [address] [place], [address] Potassium Normal 3.5-5.1 [facility] Comment on above: Result Comment: Canc elled via OM: Order cancelled - Patient discharged Performed By: #### L 500.2500, L100.0100 ####[facility] [address] [place], [address] Basic Metabolic Profile (BMP) Normal 136-145 [facility] Comment on above: Result Comment: Canc elled via OM: Order cancelled - Patient discharged Performed By: #### L 500.2500, L100.0100 ####[facility] [address] [place], [address] CBC W/Diff, Automatedon 03-0 -2024 Absolute Neut Normal 2.0-7.7 [facility] Comment on above: Result Comment: Canc elled via OM: Order cancelled - Patient discharged Performed By: #### L 500.2500, L100.0100 ####[facility] [address] [place], [address] HCT Normal 37-47 [facility] Comment on above: Result Comment: Canc elled via OM: Order cancelled - Patient discharged Performed By: #### L 500.2500, L100.0100 ####[facility] [address] [place], [address] HGB Normal 12.0-15.0 [facility] Comment on above: Result Comment: Canc elled via OM: Order cancelled - Patient discharged Performed By: #### L 500.2500, L100.0100 ####[facility] [address] [place], [address] MCH Normal 27.0-32.0 [facility] Comment on above: Result Comment: Canc elled via OM: Order cancelled - Patient discharged Performed By: #### L 500.2500, L100.0100 ####[facility] [address] [place], [address] MCHC Normal 32-36 [facility] Comment on above: Result Comment: Canc elled via OM: Order cancelled - Patient discharged Performed By: #### L 500.2500, L100.0100 ####[facility] [address] [place], [address] MCV Normal 81-99 [facility] Comment on above: Result Comment: Canc elled via OM: Order cancelled - Patient discharged Performed By: #### L 500.2500, L100.0100 ####[facility] [address] [place], [address] NEUT% Normal 47-70 [facility] Comment on above: Result Comment: Canc elled via OM: Order cancelled - Patient discharged Performed By: #### L 500.2500, L100.0100 ####[facility] [address] [place], [address] PLT Normal 150-450 [facility] Comment on above: Result Comment: Canc elled via OM: Order cancelled - Patient discharged Performed By: #### L 500.2500, L100.0100 ####[facility] [address] [place], [address] RBC Normal 4.2-5.4 [facility] Comment on above: Result Comment: Canc elled via OM: Order cancelled - Patient discharged Performed By: #### L 500.2500, L100.0100 ####[facility] [address] [place], [address] RDW CV Normal 11.6-14.6 [facility] Comment on above: Result Comment: Canc elled via OM: Order cancelled - Patient discharged Performed By: #### L 500.2500, L100.0100 ####[facility] [address] [place], [address] RDW SD Normal 35.1-43.9 [facility] Comment on above: Result Comment: Canc elled via OM: Order cancelled - Patient discharged Performed By: #### L 500.2500, L100.0100 ####[facility] [address] [place], [address] WBC Normal 4.4-11.0 [facility] Comment on above: Result Comment: Canc elled via OM: Order cancelled - Patient discharged Performed By: #### L 500.2500, L100.0100 ####[facility] [address] [place], [address] CBC-Complete Blood Cnt No Di ffon 07-30-2024 Erythrocyte distribution width (RBC) [Ratio] 17.2 % High 11.6-14.6 [facility] Comment on above: Order Comment: 103.2 Performed By: #### L 506.1001, L503.0106, L500.2500, L500.4100, L501.5200, L100.0500, L501.9520 ####[facility] [address] [place], [address] Hematocrit (Bld) [Volume fraction] 26.4 % Low 37-47 [facility] Comment on above: Order Comment: 103.2 Performed By: #### L 506.1001, L503.0106, L500.2500, L500.4100, L501.5200, L100.0500, L501.9520 ####[facility] [address] [place], [address] Hemoglobin (Bld) [Mass/Vol] 7.8 g/dL Low 12.0-15.0 [facility] Comment on above: Order Comment: 103.2 Performed By: #### L 506.1001, L503.0106, L500.2500, L500.4100, L501.5200, L100.0500, L501.9520 ####[facility] [address] [place], [address] MCH (RBC) [Entitic mass] 25.7 pg Low 27.0-32.0 [facility] Comment on above: Order Comment: 103.2 Performed By: #### L 506.1001, L503.0106, L500.2500, L500.4100, L501.5200, L100.0500, L501.9520 ####[facility] [address] [place], [address] MCHC (RBC) [Mass/Vol] 29.5 g/dL Low 32-36 [facility] Comment on above: Order Comment: 103.2 Performed By: #### L 506.1001, L503.0106, L500.2500, L500.4100, L501.5200, L100.0500, L501.9520 ####[facility] [address] [place], [address] MCV (RBC) [Entitic vol] 87.1 fL Normal 81-99 [facility] Comment on above: Order Comment: 103.2 Performed By: #### L 506.1001, L503.0106, L500.2500, L500.4100, L501.5200, L100.0500, L501.9520 ####[facility] [address] [place], [address] Platelet mean volume (Bld) [Entitic vol] 9.0 fL Normal 6.2-12.0 [facility] Comment on above: Order Comment: 103.2 Performed By: #### L 506.1001, L503.0106, L500.2500, L500.4100, L501.5200, L100.0500, L501.9520 ####[facility] [address] [place], [address] Platelets (Bld) [#/Vol] 213 10*3/uL Normal 150-450 [facility] Comment on above: Order Comment: 103.2 Performed By: #### L 506.1001, L503.0106, L500.2500, L500.4100, L501.5200, L100.0500, L501.9520 ####[facility] [address] [place], [address] RBC (Bld) [#/Vol] 3.03 10*6/uL Low 4.2-5.4 [facility] Comment on above: Order Comment: 103.2 Performed By: #### L 506.1001, L503.0106, L500.2500, L500.4100, L501.5200, L100.0500, L501.9520 ####[facility] [address] [place], [address] RDW SD 54.9 fl High 35.1-43.9 [facility] Comment on above: Order Comment: 103.2 Performed By: #### L 506.1001, L503.0106, L500.2500, L500.4100, L501.5200, L100.0500, L501.9520 ####[facility] [address] [facility] [place], [place], [address] WBC (Bld) [#/Vol] 10.8 10*3/uL Normal 4.4-11.0 [facility] Comment on above: Order Comment: 103.2 Performed By: #### L 506.1001, L503.0106, L500.2500, L500.4100, L501.5200, L100.0500, L501.9520 ####[facility] [address] [facility]. [place], [place], [address] Calcium [Mass/Vol]Ordered By : Millie Massey on 07-30-2024 Serum or plasma calcium measurement (mass/volume) 8.6 mg/dL 7.6-11.0 [facility] Calculated very low density lipoprotein (VLDL) cholesterol measurementOrdered By: Millie Massey on 07-30-2024 Calculated very low density lipoprotein (VLDL) cholesterol measurement 16 mg/dL 5-40 [facility] Calculated very low density lipoprotein (VLDL) cholesterol measurement 16 mg/dL 5-40 [facility] Carbon dioxide, total [Moles /volume] in Central venous bloodOrdered By: Millie Massey on 07-30-2024 CO2 [Moles/Vol] 24.2 mmol/L 21.0-32.0 [facility] Carbon dioxide, total [Moles/volume] in Central venous blood 24.2 mmol/L 21.0-32.0 [facility] Chloride assayOrdered By: Carter Massey on 07-30-2024 Chloride [Moles/Vol] 98 mmol/L 98-108 [facility] Chloride assay 98 mmol/L 98-108 [facility] Cholesterol [Mass/Vol]Ordere d By: Millie Massey on 07-30-2024 Serum or plasma cholesterol measurement (mass/volume) 51 mg/dL <201 [facility] Cholesterol in HDL [Mass/Vol ]Ordered By: Millie Massey on 07-30-2024 Serum or plasma cholesterol in HDL measurement (mass/volume) 22 mg/dL Low >40 [facility] Cobalamin (Vitamin B12) [Mas s/Vol]Ordered By: Millie Massey on 07-30-2024 Vitamin B12 ser/plas 452 pg/mL 180-914 [facility] Creatinine [Mass/Vol]Ordered By: Millie Massey on 07-30-2024 Serum creatinine measurement (mass/volume) 1.47 mg/dL High 0.70-1.20 [facility] Erythrocyte distribution wid th (RBC) [Ratio]Ordered By: Millie Massey on 07-30-2024 Erythrocyte distribution width ratio 17.2 % High 11.6-14.6 [facility] Erythrocyte distribution wid th ratioOrdered By: Millie Massey on 07-30-2024 Erythrocyte distribution width (RBC) [Ratio] 17.2 % High 11.6-14.6 [facility] Erythrocyte distribution wid th standard deviationOrdered By: Millie Massey on 07-30-2024 Erythrocyte distribution width (RBC) [Ratio] 54.9 fl High 35.1-43.9 [facility] Erythrocyte distribution width standard deviation 54.9 fl High 35.1-43.9 [facility] GFR/1.73 sq M.predicted víctor g non-blacks MDRD (S/P/Bld) [Vol rate/Area]Ordered By: Millie Massey on 07-30-2024 Glomerular filtration rate (GFR) estimation/1.73 sq m using serum, plasma, or whole b 40 Low >60 [facility] Glomerular filtration rate ( GFR) estimation/1.73 sq m using serum, plasma, or whole bOrdered By: Millie Massey on 07-30-2024 GFR/1.73 sq M.predicted among non-blacks MDRD (S/P/Bld) [Vol rate/Area] 40 mL/min/{1.73_m2} Low >60 [facility] Glucose [Mass/Vol]Ordered By : Millie Massey on 07-30-2024 Serum glucose measurement (mass/volume) 96 mg/dL 70-99 [facility] Hematocrit Auto (Bld) [Volum e fraction]Ordered By: Millie Massey on 07-30-2024 Hematocrit (Bld) [Volume fraction] 26.4 % Low 37-47 [facility] Automated blood hematocrit (percentage) 26.4 % Low 37-47 [facility] Hemoglobin measurementOrdere d By: Millie Massey on 07-30-2024 Hemoglobin (Bld) [Mass/Vol] 7.8 g/dL Low 12.0-15.0 [facility] Hemoglobin measurement 7.8 g/dL Low 12.0-15.0 [facility] L503.0106on 07-30-2024 Cobalamin (Vitamin B12) [Mass/Vol] 452 pg/mL Normal 180-914 [facility] Comment on above: Order Comment: 103.2 Performed By: #### L 506.1001, L503.0106, L500.2500, L500.4100, L501.5200, L100.0500, L501.9520 ####[facility] [address] [place], [place], [id number] L506.1001on 07-30-2024 Vitamin D 25-OH 27.8 ng/mL Low 30-100 [facility] Comment on above: Order Comment: 103.2 Result Comment: Kelly min D StatusDeficiency: <20 ng/mL (50nmol/L)Insufficiency: 20-30 ng/mL (50-75 nmol/L)Sufficiency: 30-100 ng/mL (75-250 nmol/L)Toxicity: >100 ng/mL (>250 nmol/L) Performed By: #### L 506.1001, L503.0106, L500.2500, L500.4100, L501.5200, L100.0500, L501.9520 ####[facility] [address] [place], [place], [id number] LDL calc ser/plasOrdered By: Millie Massey on 07-30-2024 Cholesterol in LDL [Mass/Vol] 13 mg/dL [facility] LDL calc ser/plas 13 mg/dL [facility] Lipid Profileon 07-30-2024 CHOL:HDL 2.32 Normal [facility] Comment on above: Order Comment: 103.2 Performed By: #### L 506.1001, L503.0106, L500.2500, L500.4100, L501.5200, L100.0500, L501.9520 ####[facility] [address] [place], [address] Cholesterol [Mass/Vol] 51 mg/dL Normal <=200 [facility] Comment on above: Order Comment: 103.2 Result Comment: Chol esterol level, Desirable <200 mg/dLBorderline high cholesterol 200-239 mg/dLHigh cholesterol >=240 mg/dLRecommendations of the NCEP Adult Treatment Panel for thefollowing risk-cutoff thresholds for the [place] [facility]. Performed By: #### L 506.1001, L503.0106, L500.2500, L500.4100, L501.5200, L100.0500, L501.9520 ####[facility] [address] [place], [address] Cholesterol in HDL [Mass/Vol] 22 mg/dL Low [facility] Comment on above: Order Comment: 103.2 Result Comment: [place] onal Cholesterol Education Program (NCEP) guidelines:<40 mg/dL: Low HDL-cholesterol (major risk factor for CHD)>= 60 mg/dL: High HDL-cholesterol (negative risk factor forCHD)HDL-cholesterol is affected by a number of factors, e.g.smoking, exercise, hormones, sex and age. Performed By: #### L 506.1001, L503.0106, L500.2500, L500.4100, L501.5200, L100.0500, L501.9520 ####[facility] [address] [place], [address] Cholesterol in LDL [Mass/Vol] 13 mg/dL Normal [facility] Comment on above: Order Comment: 103.2 Result Comment: Bord wbjyku=136-025 mg/dL Higher Hbfr=021 mg/dL or greater Performed By: #### L 506.1001, L503.0106, L500.2500, L500.4100, L501.5200, L100.0500, L501.9520 ####[facility] [address] [place], [address] Cholesterol in VLDL [Mass/Vol] 16 mg/dL Normal 5-40 [facility] Comment on above: Order Comment: 103.2 Performed By: #### L 506.1001, L503.0106, L500.2500, L500.4100, L501.5200, L100.0500, L501.9520 ####[facility] [address] [place], [address] Triglyceride [Mass/Vol] 82 mg/dL Normal [facility] Comment on above: Order Comment: 103.2 Result Comment: The drugs N-Acetylcysteine and Metamizole may falselydepress this assay.Normal range: <150 mg/dLBorderline High: 150-199 mg/dLHigh: 200-499 mg/dLVery High: >500 mg/dL Performed By: #### L 506.1001, L503.0106, L500.2500, L500.4100, L501.5200, L100.0500, L501.9520 ####[facility] [address] [place], [address] MCV (RBC) [Entitic vol]Order ed By: Millie Massey on 07-30-2024 MCV (mean corpuscular volume) determination 87.1 fL 81-99 [facility] MCV (mean corpuscular volume ) determinationOrdered By: Millie Massey on 07-30-2024 MCV (RBC) [Entitic vol] 87.1 fL 81-99 [facility] Magnesiumon 07-30-2024 Magnesium [Mass/Vol] 1.9 mg/dL Normal 1.5-2.2 [facility] Comment on above: Order Comment: 103.2 Performed By: #### L 506.1001, L503.0106, L500.2500, L500.4100, L501.5200, L100.0500, L501.9520 ####[facility] [address] [place], [address] Magnesium (Unsp spec) [Mass/ Vol]Ordered By: Millie Massey on 07-30-2024 Magnesium measurement (mass/volume) 1.9 mg/dL 1.5-2.2 [facility] Magnesium measurement (mass/ volume)Ordered By: Millie Massey on 07-30-2024 Magnesium (Unsp spec) [Mass/Vol] 1.9 mg/dL 1.5-2.2 [facility] Mean corpuscular hemoglobin (MCH) determinationOrdered By: Millie Massey on 07-30-2024 MCH (RBC) [Entitic mass] 25.7 pg Low 27.0-32.0 [facility] Mean corpuscular hemoglobin (MCH) determination 25.7 pg Low 27.0-32.0 [facility] Mean corpuscular hemoglobin concentration (MCHC) determinationOrdered By: Millie Massey on 07-30-2024 Mean corpuscular hemoglobin concentration (MCHC) determination 29.5 g/dL Low 32-36 [facility] Mean platelet volume determi nationOrdered By: Millie Massey on 07-30-2024 Mean platelet volume determination 9.0 fl 6.2-12.0 [facility] Platelet countOrdered By: Carter Massey on 07-30-2024 Platelets (Bld) [#/Vol] 213 10*3/uL 150-450 [facility] Platelet count 213 K/mm3 150-450 [facility] Potassium (Unsp spec) [Mass/ Vol]Ordered By: Millie Massey on 07-30-2024 Potassium measurement (mass/volume) 4.4 mmol/L 3.3-5.1 [facility] Potassium measurement (mass/ volume)Ordered By: Millie Massey on 07-30-2024 Potassium (Unsp spec) [Mass/Vol] 4.4 mmol/L 3.3-5.1 [facility] RBC Auto (Bld) [#/Vol]Ordere d By: Millie Massey on 07-30-2024 RBC (Bld) [#/Vol] 3.03 10*6/uL Low 4.2-5.4 [facility] Automated blood erythrocyte count 3.03 M/mm3 Low 4.2-5.4 [facility] Screening total cholesterol/ high density lipoprotein (HDL) cholesterol ratioOrdered By: Millie Massey on 07-30-2024 Screening total cholesterol/high density lipoprotein (HDL) cholesterol ratio 2.32 [facility] Serum creatinine measurement (mass/volume)Ordered By: Millie Massey on 07-30-2024 Creatinine [Mass/Vol] 1.47 mg/dL High 0.70-1.20 [facility] Serum glucose measurement (m ass/volume)Ordered By: Millie Massey on 07-30-2024 Glucose [Mass/Vol] 96 mg/dL 70-99 [facility] Serum or plasma calcium megan urement (mass/volume)Ordered By: Millie Massey on 07-30-2024 Calcium [Mass/Vol] 8.6 mg/dL 7.6-11.0 [facility] Serum or plasma cholesterol in HDL measurement (mass/volume)Ordered By: Millie Massey on 07-30-2024 Cholesterol in HDL [Mass/Vol] 22 mg/dL Low >40 [facility] Serum or plasma cholesterol measurement (mass/volume)Ordered By: Millie Massey on 07-30-2024 Cholesterol [Mass/Vol] 51 mg/dL <201 [facility] Serum or plasma urea nitroge n measurement (mass/volume)Ordered By: Millie Massey on 07-30-2024 Urea nitrogen [Mass/Vol] 38 mg/dL High 4-19 [facility] Sodium levelOrdered By: Silvana Massey on 07-30-2024 Sodium [Moles/Vol] 133 mmol/L 133-145 [facility] Sodium level 133 mmol/L 133-145 [facility] TSH DL <= 0.005 mIU/L QnOrde red By: Millie Massey on 07-30-2024 TSH Qn 0.578 uIU/mL 0.300-4.20 0 [facility] Serum or plasma thyroid stimulating hormone (TSH) measurement by high sensitivity met 0.578 uIU/mL 0.300-4.20 0 [facility] Thyroid Stim Hormone (TSH)on 07-30-2024 TSH 0.578 uIU/mL Normal 0.300-4.20 0 [facility] Comment on above: Order Comment: 103.2 Performed By: #### L 506.1001, L503.0106, L500.2500, L500.4100, L501.5200, L100.0500, L501.9520 ####[facility] [address] [place], [place], [address] Triglycerides measurementOrd ered By: Millie Massey on 07-30-2024 Triglycerides measurement 82 mg/dL <199 [facility] Urea nitrogen [Mass/Vol]Orde red By: Millie Massey on 07-30-2024 Serum or plasma urea nitrogen measurement (mass/volume) 38 mg/dL High 4-19 [facility] Vitamin B12 ser/plasOrdered By: Millie Massey on 07-30-2024 Cobalamin (Vitamin B12) [Mass/Vol] 452 pg/mL 180-914 [facility] Vitamin D, 25-hydroxyOrdered By: Millie Massey on 07-30-2024 Vitamin D, 25-hydroxy 27.8 ng/mL Low 30-100 [facility] White blood cell (WBC) count Ordered By: Millie Massey on 07-30-2024 WBC (Bld) [#/Vol] 10.8 10*3/uL 4.4-11.0 [facility] White blood cell (WBC) count 10.8 K/mm3 4.4-11.0 [facility] Anion gap [Moles/Vol]Ordered By: Remedios Kessler on 07-29-2024 Serum or plasma anion gap determination (moles/volume) 9 5-15 [facility] BUN/creatinine ratioOrdered By: Remedios Kessler on 07-29-2024 Urea nitrogen/Creatinine [Mass ratio] 26.5 mg/mg High 10-20 [facility] BUN/creatinine ratio 26.5 RATIO High 10-20 [facility] Basic Metabolic Profile (BMP )on 07-29-2024 Anion gap [Moles/Vol] 9 mmol/L Normal 5-15 [facility] Comment on above: Performed By: #### L 501.2300, L500.2500, L501.5200, L100.0500 ####[facility] [address] [place], [address] BUN/CRE 26.5 RATIO High 10-20 [facility] Comment on above: Performed By: #### L 501.2300, L500.2500, L501.5200, L100.0500 ####[facility] [address] [place], [address] Calcium [Mass/Vol] 8.5 mg/dL Normal 7.6-11.0 [facility] Comment on above: Performed By: #### L 501.2300, L500.2500, L501.5200, L100.0500 ####[facility] [address] [place], [address] Chloride [Moles/Vol] 95 mmol/L Low 96-108 [facility] Comment on above: Performed By: #### L 501.2300, L500.2500, L501.5200, L100.0500 ####[facility] [address] [place], [address] CO2 [Moles/Vol] 25.0 mmol/L Normal 22.0-29.0 [facility] Comment on above: Performed By: #### L 501.2300, L500.2500, L501.5200, L100.0500 ####[facility] [address] [place], [address] Creatinine [Mass/Vol] 1.88 mg/dL High 0.70-1.20 [facility] Comment on above: Performed By: #### L 501.2300, L500.2500, L501.5200, L100.0500 ####[facility] [address] [place], [address] ECRCL 19.59 ml/min Low 50-250 [facility] Comment on above: Performed By: #### L 501.2300, L500.2500, L501.5200, L100.0500 ####[facility] [address] [place], [address] GFR/1.73 sq M.predicted among non-blacks MDRD (S/P/Bld) [Vol rate/Area] 30 mL/min/{1.73_m2} Low >60 [facility] Comment on above: Result Comment: mL/m in/1.73m2 CKD-EPI Creatinine Equation (2020) Performed By: #### L 501.2300, L500.2500, L501.5200, L100.0500 ####[facility] [address] [place], [address] Glucose [Mass/Vol] 121 mg/dL High 70-99 [facility] Comment on above: Performed By: #### L 501.2300, L500.2500, L501.5200, L100.0500 ####[facility] [address] [place], [address] Potassium [Moles/Vol] 4.6 mmol/L Normal 3.3-5.1 [facility] Comment on above: Performed By: #### L 501.2300, L500.2500, L501.5200, L100.0500 ####[facility] [address] [place], [address] Sodium [Moles/Vol] 129 mmol/L Low 133-145 [facility] Comment on above: Performed By: #### L 501.2300, L500.2500, L501.5200, L100.0500 ####[facility] [address] [place], [address] Urea nitrogen [Mass/Vol] 50 mg/dL High 4-19 [facility] Comment on above: Performed By: #### L 501.2300, L500.2500, L501.5200, L100.0500 ####[facility] [address] [place], [address] CBC-Complete Blood Cnt No Di ffon 07-29-2024 Erythrocyte distribution width (RBC) [Ratio] 17.0 % High 11.6-14.6 [facility] Comment on above: Performed By: #### L 501.2300, L500.2500, L501.5200, L100.0500 ####[facility] [address] [place], [address] Hematocrit (Bld) [Volume fraction] 28.1 % Low 37-47 [facility] Comment on above: Performed By: #### L 501.2300, L500.2500, L501.5200, L100.0500 ####[facility] [address] [place], [address] Hemoglobin (Bld) [Mass/Vol] 8.3 g/dL Low 12.0-15.0 [facility] Comment on above: Performed By: #### L 501.2300, L500.2500, L501.5200, L100.0500 ####[facility] [address] [place], [address] MCH (RBC) [Entitic mass] 25.7 pg Low 27.0-32.0 [facility] Comment on above: Performed By: #### L 501.2300, L500.2500, L501.5200, L100.0500 ####[facility] [address] [place], [address] MCHC (RBC) [Mass/Vol] 29.5 g/dL Low 32-36 [facility] Comment on above: Performed By: #### L 501.2300, L500.2500, L501.5200, L100.0500 ####[facility] [address] [place], [address] MCV (RBC) [Entitic vol] 87.0 fL Normal 81-99 [facility] Comment on above: Performed By: #### L 501.2300, L500.2500, L501.5200, L100.0500 ####[facility] [address] [place], [address] Platelet mean volume (Bld) [Entitic vol] 9.3 fL Normal 6.2-12.0 [facility] Comment on above: Performed By: #### L 501.2300, L500.2500, L501.5200, L100.0500 ####[facility] [address] [place], [address] Platelets (Bld) [#/Vol] 222 10*3/uL Normal 150-450 [facility] Comment on above: Performed By: #### L 501.2300, L500.2500, L501.5200, L100.0500 ####[facility] [address] [place], [address] RBC (Bld) [#/Vol] 3.23 10*6/uL Low 4.2-5.4 [facility] Comment on above: Performed By: #### L 501.2300, L500.2500, L501.5200, L100.0500 ####[facility] [address] [place], [address] RDW SD 53.6 fl High 35.1-43.9 [facility] Comment on above: Performed By: #### L 501.2300, L500.2500, L501.5200, L100.0500 ####[facility] [address] [place], [address] WBC (Bld) [#/Vol] 13.8 10*3/uL High 4.4-11.0 [facility] Comment on above: Performed By: #### L 501.2300, L500.2500, L501.5200, L100.0500 ####[facility] [address] [place], [address] Calcium [Mass/Vol]Ordered By : Remedios Kessler on 07-29-2024 Serum or plasma calcium measurement (mass/volume) 8.5 mg/dL 7.6-11.0 [facility] Carbon dioxide measurementOr dered By: Remedios Kessler on 07-29-2024 CO2 [Moles/Vol] 25.0 mmol/L 22.0-29.0 [facility] Carbon dioxide measurement 25.0 mmol/L 22.0-29.0 [facility] Chloride measurementOrdered By: Remedios Kessler on 07-29-2024 Chloride [Moles/Vol] 95 mmol/L Low 96-108 [facility] Chloride measurement 95 mmol/L Low 96-108 [facility] Creatinine [Mass/Vol]Ordered By: Remedios Kessler on 07-29-2024 Serum creatinine measurement (mass/volume) 1.88 mg/dL High 0.70-1.20 [facility] Erythrocyte distribution wid th (RBC) [Ratio]Ordered By: Remedios Kessler on 07-29-2024 Erythrocyte distribution width ratio 17.0 % High 11.6-14.6 [facility] Erythrocyte distribution wid th ratioOrdered By: Remedios Kessler on 07-29-2024 Erythrocyte distribution width (RBC) [Ratio] 17.0 % High 11.6-14.6 [facility] Erythrocyte distribution wid th standard deviationOrdered By: Remedios Kessler on 07-29-2024 Erythrocyte distribution width (RBC) [Ratio] 53.6 fl High 35.1-43.9 [facility] Erythrocyte distribution width standard deviation 53.6 fl High 35.1-43.9 [facility] Estimation of creatinine austen aranceOrdered By: Remedios Kessler on 07-29-2024 Estimation of creatinine clearance 19.59 ml/min Low 50-250 [facility] GFR/1.73 sq M.predicted víctor g non-blacks MDRD (S/P/Bld) [Vol rate/Area]Ordered By: Remedios Kessler on 07-29-2024 Glomerular filtration rate (GFR) estimation/1.73 sq m using serum, plasma, or whole b 30 Low >60 [facility] Glomerular filtration rate ( GFR) estimation/1.73 sq m using serum, plasma, or whole bOrdered By: Remedios Kessler on 07-29-2024 GFR/1.73 sq M.predicted among non-blacks MDRD (S/P/Bld) [Vol rate/Area] 30 mL/min/{1.73_m2} Low >60 [facility] Glucose [Mass/Vol]Ordered By : Remedios Kessler on 07-29-2024 Serum glucose measurement (mass/volume) 121 mg/dL High 70-99 [facility] Hematocrit Auto (Bld) [Volum e fraction]Ordered By: Remedios Kessler on 07-29-2024 Hematocrit (Bld) [Volume fraction] 28.1 % Low 37-47 [facility] Automated blood hematocrit (percentage) 28.1 % Low 37-47 [facility] Hemoglobin measurementOrdere d By: Remedios Kessler on 07-29-2024 Hemoglobin (Bld) [Mass/Vol] 8.3 g/dL Low 12.0-15.0 [facility] Hemoglobin measurement 8.3 g/dL Low 12.0-15.0 [facility] MCV (RBC) [Entitic vol]Order ed By: Remedios Kessler on 07-29-2024 MCV (mean corpuscular volume) determination 87.0 fL 81-99 [facility] MCV (mean corpuscular volume ) determinationOrdered By: Remedios Kessler on 07-29-2024 MCV (RBC) [Entitic vol] 87.0 fL 81-99 [facility] Magnesiumon 07-29-2024 Magnesium [Mass/Vol] 1.8 mg/dL Normal 1.5-2.2 [facility] Comment on above: Performed By: #### L 501.2300, L500.2500, L501.5200, L100.0500 ####[facility] [address] [place], [place], [id number] Magnesium (Unsp spec) [Mass/ Vol]Ordered By: Remedios Kessler on 07-29-2024 Magnesium measurement (mass/volume) 1.8 mg/dL 1.5-2.2 [facility] Magnesium measurement (mass/ volume)Ordered By: Remedios Kessler on 07-29-2024 Magnesium (Unsp spec) [Mass/Vol] 1.8 mg/dL 1.5-2.2 [facility] Mean corpuscular hemoglobin (MCH) determinationOrdered By: Remedios Kessler on 07-29-2024 MCH (RBC) [Entitic mass] 25.7 pg Low 27.0-32.0 [facility] Mean corpuscular hemoglobin (MCH) determination 25.7 pg Low 27.0-32.0 [facility] Mean corpuscular hemoglobin concentration (MCHC) determinationOrdered By: Remedios Kessler on 07-29-2024 Mean corpuscular hemoglobin concentration (MCHC) determination 29.5 g/dL Low 32-36 [facility] Mean platelet volume determi nationOrdered By: Remedios Kessler on 07-29-2024 Mean platelet volume determination 9.3 fl 6.2-12.0 [facility] Phosphoruson 07-29-2024 Phosphate [Mass/Vol] 3.3 mg/dL Normal 2.7-4.5 [facility] Comment on above: Performed By: #### L 501.2300, L500.2500, L501.5200, L100.0500 ####[facility] [address] [place], [place], [id number] Platelet countOrdered By: Rip Kessler on 07-29-2024 Platelets (Bld) [#/Vol] 222 10*3/uL 150-450 [facility] Platelet count 222 K/mm3 150-450 [facility] Potassium [Moles/Vol]Ordered By: Remedios Kessler on 07-29-2024 Serum or plasma potassium measurement 4.6 mmol/L 3.3-5.1 [facility] RBC Auto (Bld) [#/Vol]Ordere d By: Remedios Kessler on 07-29-2024 RBC (Bld) [#/Vol] 3.23 10*6/uL Low 4.2-5.4 [facility] Automated blood erythrocyte count 3.23 M/mm3 Low 4.2-5.4 [facility] Serum creatinine measurement (mass/volume)Ordered By: Remedios Kessler on 07-29-2024 Creatinine [Mass/Vol] 1.88 mg/dL High 0.70-1.20 [facility] Serum glucose measurement (m ass/volume)Ordered By: Remedios Kessler on 07-29-2024 Glucose [Mass/Vol] 121 mg/dL High 70-99 [facility] Serum or plasma anion gap de termination (moles/volume)Ordered By: Remedios Kessler on 07-29-2024 Anion gap [Moles/Vol] 9 mmol/L 5-15 [facility] Serum or plasma calcium megan urement (mass/volume)Ordered By: Remedios Kessler on 07-29-2024 Calcium [Mass/Vol] 8.5 mg/dL 7.6-11.0 [facility] Serum or plasma potassium me asurementOrdered By: Remedios Kessler on 07-29-2024 Potassium [Moles/Vol] 4.6 mmol/L 3.3-5.1 [facility] Serum or plasma sodium measu rement (moles/volume)Ordered By: Remedios Kessler on 07-29-2024 Sodium [Moles/Vol] 129 mmol/L Low 133-145 [facility] Serum or plasma urea nitroge n measurement (mass/volume)Ordered By: Remedios Kessler on 07-29-2024 Urea nitrogen [Mass/Vol] 50 mg/dL High 4-19 [facility] Serum phosphorus measurement Ordered By: Remedios Kessler on 07-29-2024 Serum phosphorus measurement 3.3 mg/dL 2.7-4.5 [facility] Sodium [Moles/Vol]Ordered By : Remedios Kessler on 07-29-2024 Serum or plasma sodium measurement (moles/volume) 129 mmol/L Low 133-145 [facility] Urea nitrogen [Mass/Vol]Orde red By: Remedios Kessler on 07-29-2024 Serum or plasma urea nitrogen measurement (mass/volume) 50 mg/dL High 4-19 [facility] White blood cell (WBC) count Ordered By: Remedios Kessler on 07-29-2024 WBC (Bld) [#/Vol] 13.8 10*3/uL High 4.4-11.0 [facility] White blood cell (WBC) count 13.8 K/mm3 High 4.4-11.0 [facility] Absolute lymphocyte countOrd ered By: Remedios Kessler on 07-28-2024 Lymphocytes Auto (Unsp spec) [#/Vol] 0.41 10*3/uL Low 0.83-4.51 [facility] Absolute neutrophil countOrd ered By: Remedios Kessler on 07-28-2024 Absolute neutrophil count 14.2 X10^3/uL High 2.0-7.7 [facility] Automated lymphocyte count a s percentage of total leukocytesOrdered By: Remedios Kessler on 07-28-2024 Lymphocytes/100 WBC Auto (Unsp spec) 2.6 % Low 19-41 [facility] Basic Metabolic Profile (BMP )on 07-28-2024 Anion gap [Moles/Vol] 9 mmol/L Normal 5-15 [facility] Comment on above: Performed By: #### L 501.5200, L501.2300, L100.0100, L500.2500 ####[facility] [address] [place], [address] BUN/CRE 22.8 RATIO High 10-20 [facility] Comment on above: Performed By: #### L 501.5200, L501.2300, L100.0100, L500.2500 ####[facility] [address] [place], [address] Calcium [Mass/Vol] 8.8 mg/dL Normal 7.6-11.0 [facility] Comment on above: Performed By: #### L 501.5200, L501.2300, L100.0100, L500.2500 ####[facility] [address] [place], [address] Chloride [Moles/Vol] 98 mmol/L Normal 96-108 [facility] Comment on above: Performed By: #### L 501.5200, L501.2300, L100.0100, L500.2500 ####[facility] [address] [place], [address] CO2 [Moles/Vol] 22.8 mmol/L Normal 22.0-29.0 [facility] Comment on above: Performed By: #### L 501.5200, L501.2300, L100.0100, L500.2500 ####[facility] [address] [place], [address] Creatinine [Mass/Vol] 1.74 mg/dL High 0.70-1.20 [facility] Comment on above: Performed By: #### L 501.5200, L501.2300, L100.0100, L500.2500 ####[facility] [address] [place], [address] ECRCL 21.17 ml/min Low 50-250 [facility] Comment on above: Performed By: #### L 501.5200, L501.2300, L100.0100, L500.2500 ####[facility] [address] [place], [address] GFR/1.73 sq M.predicted among non-blacks MDRD (S/P/Bld) [Vol rate/Area] 33 mL/min/{1.73_m2} Low >60 [facility] Comment on above: Result Comment: mL/m in/1.73m2 CKD-EPI Creatinine Equation (2020) Performed By: #### L 501.5200, L501.2300, L100.0100, L500.2500 ####[facility] [address] [place], [address] Glucose [Mass/Vol] 69 mg/dL Low 70-99 [facility] Comment on above: Performed By: #### L 501.5200, L501.2300, L100.0100, L500.2500 ####[facility] [address] [place], [address] Potassium [Moles/Vol] 4.4 mmol/L Normal 3.3-5.1 [facility] Comment on above: Result Comment: Hemo lysis present, Results??could be affected.?? Performed By: #### L 501.5200, L501.2300, L100.0100, L500.2500 ####[facility] [address] [place], [address] Sodium [Moles/Vol] 130 mmol/L Low 133-145 [facility] Comment on above: Performed By: #### L 501.5200, L501.2300, L100.0100, L500.2500 ####[facility] [address] [place], [address] Urea nitrogen [Mass/Vol] 40 mg/dL High 4-19 [facility] Comment on above: Performed By: #### L 501.5200, L501.2300, L100.0100, L500.2500 ####[facility] [address] [place], [address] Basophil percentageOrdered B y: Remedios Kessler on 07-28-2024 Basophils/100 WBC (Bld) 0.2 % 0-1 [facility] Basophil percentage 0.2 % 0-1 [facility] CBC W/Diff, Automatedon Absolute Lymph 0.41 X10 3/uL Low 0.83-4.51 [facility] Comment on above: Performed By: #### L 501.5200, L501.2300, L100.0100, L500.2500 ####[facility] [address] [place], [address] Absolute Neut 14.2 X10 3/uL High 2.0-7.7 [facility] Comment on above: Performed By: #### L 501.5200, L501.2300, L100.0100, L500.2500 ####[facility] [address] [place], [address] Basophils/100 WBC (Bld) 0.2 % Normal 0-1 [facility] Comment on above: Performed By: #### L 501.5200, L501.2300, L100.0100, L500.2500 ####[facility] [address] [place], [address] Eosinophils/100 WBC (Bld) 0.4 % Normal 0-5 [facility] Comment on above: Performed By: #### L 501.5200, L501.2300, L100.0100, L500.2500 ####[facility] [address] [place], [address] Erythrocyte distribution width (RBC) [Ratio] 17.2 % High 11.6-14.6 [facility] Comment on above: Performed By: #### L 501.5200, L501.2300, L100.0100, L500.2500 ####[facility] [address] [place], [address] Hematocrit (Bld) [Volume fraction] 32.2 % Low 37-47 [facility] Comment on above: Performed By: #### L 501.5200, L501.2300, L100.0100, L500.2500 ####[facility] [address] [place], [address] Hemoglobin (Bld) [Mass/Vol] 9.6 g/dL Low 12.0-15.0 [facility] Comment on above: Performed By: #### L 501.5200, L501.2300, L100.0100, L500.2500 ####[facility] [address] [place], [address] IG% 1.700 High 0.0-0.9 [facility] Comment on above: Result Comment: IG% - Immature Granulocytes (promyelocytes, myelocytes andmetamyelocytes) > 1% indicates that a LEFT SHIFT is Present. Performed By: #### L 501.5200, L501.2300, L100.0100, L500.2500 ####[facility] [address] [place], [address] Lymphocytes/100 WBC (Bld) 2.6 % Low 19-41 [facility] Comment on above: Performed By: #### L 501.5200, L501.2300, L100.0100, L500.2500 ####[facility] [address] [place], [address] MCH (RBC) [Entitic mass] 25.7 pg Low 27.0-32.0 [facility] Comment on above: Performed By: #### L 501.5200, L501.2300, L100.0100, L500.2500 ####[facility] [address] [place], [address] MCHC (RBC) [Mass/Vol] 29.8 g/dL Low 32-36 [facility] Comment on above: Performed By: #### L 501.5200, L501.2300, L100.0100, L500.2500 ####[facility] [address] [place], [address] MCV (RBC) [Entitic vol] 86.3 fL Normal 81-99 [facility] Comment on above: Performed By: #### L 501.5200, L501.2300, L100.0100, L500.2500 ####[facility] [address] [place], [address] Monocytes/100 WBC (Bld) 4.2 % Normal 0-10 [facility] Comment on above: Performed By: #### L 501.5200, L501.2300, L100.0100, L500.2500 ####[facility] [address] [place], [address] Neutrophils/100 WBC (Bld) 90.9 % High 47-70 [facility] Comment on above: Performed By: #### L 501.5200, L501.2300, L100.0100, L500.2500 ####[facility] [address] [place], [address] Nucleated RBC (Bld) [#/Vol] 0 10*3/uL Normal 0-5 [facility] Comment on above: Performed By: #### L 501.5200, L501.2300, L100.0100, L500.2500 ####[facility] [address] [place], [address] Platelet mean volume (Bld) [Entitic vol] 8.3 fL Normal 6.2-12.0 [facility] Comment on above: Performed By: #### L 501.5200, L501.2300, L100.0100, L500.2500 ####[facility] [address] [place], [address] Platelets (Bld) [#/Vol] 217 10*3/uL Normal 150-450 [facility] Comment on above: Performed By: #### L 501.5200, L501.2300, L100.0100, L500.2500 ####[facility] [address] [place], [address] RBC (Bld) [#/Vol] 3.73 10*6/uL Low 4.2-5.4 [facility] Comment on above: Performed By: #### L 501.5200, L501.2300, L100.0100, L500.2500 ####[facility] [address] [place], [address] RDW SD 53.4 fl High 35.1-43.9 [facility] Comment on above: Performed By: #### L 501.5200, L501.2300, L100.0100, L500.2500 ####[facility] [address] [place], [address] WBC (Bld) [#/Vol] 15.6 10*3/uL High 4.4-11.0 [facility] Comment on above: Performed By: #### L 501.5200, L501.2300, L100.0100, L500.2500 ####[facility] [address] [place], [address] Eosinophil percentageOrdered By: Remedios Kessler on 07-28-2024 Eosinophils/100 WBC (Bld) 0.4 % 0-5 [facility] Eosinophil percentage 0.4 % 0-5 [facility] Immature granulocytes/100 WB C Auto (Bld)Ordered By: Remedios Kessler on 07-28-2024 Immature granulocytes/100 WBC (Bld) 1.700 % High 0.0-0.9 [facility] Automated immature granulocyte percentage 1.700 % High 0.0-0.9 [facility] Lymphocytes Auto (Unsp spec) [#/Vol]Ordered By: Remedios Kessler on 07-28-2024 Absolute lymphocyte count 0.41 X10^3/uL Low 0.83-4.51 [facility] Lymphocytes/100 WBC Auto (Un sp spec)Ordered By: Remedios Kessler on 07-28-2024 Automated lymphocyte count as percentage of total leukocytes 2.6 % Low 19-41 [facility] Magnesiumon 07-28-2024 Magnesium [Mass/Vol] 2.0 mg/dL Normal 1.5-2.2 [facility] Comment on above: Performed By: #### L 501.5200, L501.2300, L100.0100, L500.2500 ####[facility] [address] [place], [address] Monocyte percentageOrdered B y: Remedios Kessler on 07-28-2024 Monocytes/100 WBC (Bld) 4.2 % 0-10 [facility] Monocyte percentage 4.2 % 0-10 [facility] Neutrophil percentageOrdered By: Remedios Kessler on 07-28-2024 Neutrophils/100 WBC (Bld) 90.9 % High 47-70 [facility] Neutrophil percentage 90.9 % High 47-70 [facility] Nucleated red blood cell per centageOrdered By: Remedios Kessler on 07-28-2024 Nucleated red blood cell percentage 0 % 0-5 [facility] Phosphoruson 07-28-2024 Phosphate [Mass/Vol] 3.4 mg/dL Normal 2.7-4.5 [facility] Comment on above: Performed By: #### L 501.5200, L501.2300, L100.0100, L500.2500 ####[facility] [address] [place], [address] Basic Metabolic Profile (BMP )on 07-27-2024 Anion gap [Moles/Vol] 9 mmol/L Normal 5-15 [facility] Comment on above: Performed By: #### L 500.2500, L501.5200, L100.0100, L501.2300 ####[facility] [address] [place], [address] BUN/CRE 21.0 RATIO High 10-20 [facility] Comment on above: Performed By: #### L 500.2500, L501.5200, L100.0100, L501.2300 ####[facility] [address] [place], [address] Calcium [Mass/Vol] 8.9 mg/dL Normal 7.6-11.0 [facility] Comment on above: Performed By: #### L 500.2500, L501.5200, L100.0100, L501.2300 ####[facility] [address] [place], [address] Chloride [Moles/Vol] 98 mmol/L Normal 96-108 [facility] Comment on above: Performed By: #### L 500.2500, L501.5200, L100.0100, L501.2300 ####[facility] [address] [place], [address] CO2 [Moles/Vol] 23.8 mmol/L Normal 22.0-29.0 [facility] Comment on above: Performed By: #### L 500.2500, L501.5200, L100.0100, L501.2300 ####[facility] [address] [place], [address] Creatinine [Mass/Vol] 1.40 mg/dL High 0.70-1.20 [facility] Comment on above: Performed By: #### L 500.2500, L501.5200, L100.0100, L501.2300 ####[facility] [address] [place], [address] ECRCL 26.31 ml/min Normal [facility] Comment on above: Performed By: #### L 500.2500, L501.5200, L100.0100, L501.2300 ####[facility] [address] [place], [address] GFR/1.73 sq M.predicted among non-blacks MDRD (S/P/Bld) [Vol rate/Area] 43 mL/min/{1.73_m2} Low >60 [facility] Comment on above: Result Comment: mL/m in/1.73m2 CKD-EPI Creatinine Equation (2020) Performed By: #### L 500.2500, L501.5200, L100.0100, L501.2300 ####[facility] [address] [place], [address] Glucose [Mass/Vol] 89 mg/dL Normal 70-99 [facility] Comment on above: Performed By: #### L 500.2500, L501.5200, L100.0100, L501.2300 ####[facility] [address] [place], [address] Potassium [Moles/Vol] 3.8 mmol/L Normal 3.3-5.1 [facility] Comment on above: Performed By: #### L 500.2500, L501.5200, L100.0100, L501.2300 ####[facility] [address] [place], [address] Sodium [Moles/Vol] 130 mmol/L Low 133-145 [facility] Comment on above: Performed By: #### L 500.2500, L501.5200, L100.0100, L501.2300 ####[facility] [address] [place], [address] Urea nitrogen [Mass/Vol] 29 mg/dL High 4-19 [facility] Comment on above: Performed By: #### L 500.2500, L501.5200, L100.0100, L501.2300 ####[facility] [address] [place], [address] CBC W/Diff, Automatedon 03-0 1-2024 Absolute Lymph 0.63 X10 3/uL Low 0.83-4.51 [facility] Comment on above: Performed By: #### L 500.2500, L501.5200, L100.0100, L501.2300 ####[facility] [address] [place], [address] Absolute Neut 18.1 X10 3/uL High 2.0-7.7 [facility] Comment on above: Performed By: #### L 500.2500, L501.5200, L100.0100, L501.2300 ####[facility] [address] [place], [address] Basophils/100 WBC (Bld) 0.2 % Normal 0-1 [facility] Comment on above: Performed By: #### L 500.2500, L501.5200, L100.0100, L501.2300 ####[facility] [address] [place], [address] Eosinophils/100 WBC (Bld) 0.3 % Normal 0-5 [facility] Comment on above: Performed By: #### L 500.2500, L501.5200, L100.0100, L501.2300 ####[facility] [address] [place], [address] Erythrocyte distribution width (RBC) [Ratio] 17.2 % High 11.6-14.6 [facility] Comment on above: Performed By: #### L 500.2500, L501.5200, L100.0100, L501.2300 ####[facility] [address] [place], [address] Hematocrit (Bld) [Volume fraction] 30.9 % Low 37-47 [facility] Comment on above: Performed By: #### L 500.2500, L501.5200, L100.0100, L501.2300 ####[facility] [address] [place], [address] Hemoglobin (Bld) [Mass/Vol] 9.2 g/dL Low 12.0-15.0 [facility] Comment on above: Performed By: #### L 500.2500, L501.5200, L100.0100, L501.2300 ####[facility] [address] [place], [address] IG% 1.400 High 0.0-0.9 [facility] Comment on above: Result Comment: IG% - Immature Granulocytes (promyelocytes, myelocytes andmetamyelocytes) > 1% indicates that a LEFT SHIFT is Present. Performed By: #### L 500.2500, L501.5200, L100.0100, L501.2300 ####[facility] [address] [place], [address] Lymphocytes/100 WBC (Bld) 3.2 % Low 19-41 [facility] Comment on above: Performed By: #### L 500.2500, L501.5200, L100.0100, L501.2300 ####[facility] [address] [place], [address] MCH (RBC) [Entitic mass] 26.1 pg Low 27.0-32.0 [facility] Comment on above: Performed By: #### L 500.2500, L501.5200, L100.0100, L501.2300 ####[facility] [address] [place], [address] MCHC (RBC) [Mass/Vol] 29.8 g/dL Low 32-36 [facility] Comment on above: Performed By: #### L 500.2500, L501.5200, L100.0100, L501.2300 ####[facility] [address] [place], [address] MCV (RBC) [Entitic vol] 87.5 fL Normal 81-99 [facility] Comment on above: Performed By: #### L 500.2500, L501.5200, L100.0100, L501.2300 ####[facility] [address] [place], [address] Monocytes/100 WBC (Bld) 4.5 % Normal 0-10 [facility] Comment on above: Performed By: #### L 500.2500, L501.5200, L100.0100, L501.2300 ####[facility] [address] [place], [address] Neutrophils/100 WBC (Bld) 90.4 % High 47-70 [facility] Comment on above: Performed By: #### L 500.2500, L501.5200, L100.0100, L501.2300 ####[facility] [address] [place], [address] Nucleated RBC (Bld) [#/Vol] 0 10*3/uL Normal 0-5 [facility] Comment on above: Performed By: #### L 500.2500, L501.5200, L100.0100, L501.2300 ####[facility] [address] [place], [address] Platelet mean volume (Bld) [Entitic vol] 8.8 fL Normal 6.2-12.0 [facility] Comment on above: Performed By: #### L 500.2500, L501.5200, L100.0100, L501.2300 ####[facility] [address] [place], [address] Platelets (Bld) [#/Vol] 265 10*3/uL Normal 150-450 [facility] Comment on above: Performed By: #### L 500.2500, L501.5200, L100.0100, L501.2300 ####[facility] [address] [place], [address] RBC (Bld) [#/Vol] 3.53 10*6/uL Low 4.2-5.4 [facility] Comment on above: Performed By: #### L 500.2500, L501.5200, L100.0100, L501.2300 ####[facility] [address] [place], [address] RDW SD 53.9 fl High 35.1-43.9 [facility] Comment on above: Performed By: #### L 500.2500, L501.5200, L100.0100, L501.2300 ####[facility] [address] [place], [address] WBC (Bld) [#/Vol] 20.0 10*3/uL High 4.4-11.0 [facility] Comment on above: Performed By: #### L 500.2500, L501.5200, L100.0100, L501.2300 ####[facility] [address] [place], [address] Magnesiumon 07-27-2024 Magnesium [Mass/Vol] 1.9 mg/dL Normal 1.5-2.2 [facility] Comment on above: Performed By: #### L 500.2500, L501.5200, L100.0100, L501.2300 ####[facility] [address] [place], [address] Phosphoruson 07-27-2024 Phosphate [Mass/Vol] 3.6 mg/dL Normal 2.7-4.5 [facility] Comment on above: Performed By: #### L 500.2500, L501.5200, L100.0100, L501.2300 ####[facility] [address] [place], [address] Basic Metabolic Profile (BMP )on 07-26-2024 Anion gap [Moles/Vol] 10 mmol/L Normal 5-15 [facility] Comment on above: Performed By: #### L 501.2300, L500.2500, L501.5200 ####[facility] [address] [place], [address] BUN/CRE 19.9 RATIO Normal 10-20 [facility] Comment on above: Performed By: #### L 501.2300, L500.2500, L501.5200 ####[facility] [address] [place], [address] Calcium [Mass/Vol] 8.6 mg/dL Normal 7.6-11.0 [facility] Comment on above: Performed By: #### L 501.2300, L500.2500, L501.5200 ####[facility] [address] [place], [address] Chloride [Moles/Vol] 98 mmol/L Normal 96-108 [facility] Comment on above: Performed By: #### L 501.2300, L500.2500, L501.5200 ####[facility] [address] [place], [address] CO2 [Moles/Vol] 22.9 mmol/L Normal 22.0-29.0 [facility] Comment on above: Performed By: #### L 501.2300, L500.2500, L501.5200 ####[facility] [address] [place], [address] Creatinine [Mass/Vol] 1.60 mg/dL High 0.70-1.20 [facility] Comment on above: Performed By: #### L 501.2300, L500.2500, L501.5200 ####[facility] [address] [place], [address] ECRCL 23.88 ml/min Normal [facility] Comment on above: Performed By: #### L 501.2300, L500.2500, L501.5200 ####[facility] [address] [place], [address] GFR/1.73 sq M.predicted among non-blacks MDRD (S/P/Bld) [Vol rate/Area] 36 mL/min/{1.73_m2} Low >60 [facility] Comment on above: Result Comment: mL/m in/1.73m2 CKD-EPI Creatinine Equation (2020) Performed By: #### L 501.2300, L500.2500, L501.5200 ####[facility] [address] [place], [address] Glucose [Mass/Vol] 66 mg/dL Low 70-99 [facility] Comment on above: Performed By: #### L 501.2300, L500.2500, L501.5200 ####[facility] [address] [place], [address] Potassium [Moles/Vol] 4.1 mmol/L Normal 3.3-5.1 [facility] Comment on above: Result Comment: Hemo lysis present, Results??could be affected.?? Performed By: #### L 501.2300, L500.2500, L501.5200 ####[facility] [address] [place], [address] Sodium [Moles/Vol] 131 mmol/L Low 133-145 [facility] Comment on above: Performed By: #### L 501.2300, L500.2500, L501.5200 ####[facility] [address] [place], [address] Urea nitrogen [Mass/Vol] 32 mg/dL High 4-19 [facility] Comment on above: Performed By: #### L 501.2300, L500.2500, L501.5200 ####[facility] [address] [place], [address] Magnesiumon 07-26-2024 Magnesium [Mass/Vol] 1.9 mg/dL Normal 1.5-2.2 [facility] Comment on above: Performed By: #### L 501.2300, L500.2500, L501.5200 ####[facility] [address] [place], [address] Phosphoruson 07-26-2024 Phosphate [Mass/Vol] 3.9 mg/dL Normal 2.7-4.5 [facility] Comment on above: Performed By: #### L 501.2300, L500.2500, L501.5200 ####[facility] [address] [place], [address] Wound Cultureon 07-26-2024 WC left lower abdomen No growth aerobically. Normal [facility] Comment on above: Performed By: #### M 100.3000, M100.2000, L8200.1075 ####[facility] [address] [place], [address] Basic Metabolic Profile (BMP )on 07-25-2024 Anion gap [Moles/Vol] 11 mmol/L Normal 5-15 [facility] Comment on above: Performed By: #### L 501.5200, L100.0500, L501.2300, L500.2500 ####[facility] [address] [place], [address] BUN/CRE 20.2 RATIO High 10-20 [facility] Comment on above: Performed By: #### L 501.5200, L100.0500, L501.2300, L500.2500 ####[facility] [address] [place], [address] Calcium [Mass/Vol] 8.4 mg/dL Normal 7.6-11.0 [facility] Comment on above: Performed By: #### L 501.5200, L100.0500, L501.2300, L500.2500 ####[facility] [address] [place], [address] Chloride [Moles/Vol] 101 mmol/L Normal 96-108 [facility] Comment on above: Performed By: #### L 501.5200, L100.0500, L501.2300, L500.2500 ####[facility] [address] [place], [address] CO2 [Moles/Vol] 23.9 mmol/L Normal 22.0-29.0 [facility] Comment on above: Performed By: #### L 501.5200, L100.0500, L501.2300, L500.2500 ####[facility] [address] [place], [address] Creatinine [Mass/Vol] 2.1 mg/dL High 0.6-1.0 [facility] Comment on above: Performed By: #### L 501.5200, L100.0500, L501.2300, L500.2500 ####[facility] [address] [place], [address] ECRCL 19.07 ml/min Normal [facility] Comment on above: Performed By: #### L 501.5200, L100.0500, L501.2300, L500.2500 ####[facility] [address] [place], [address] GFR/1.73 sq M.predicted among non-blacks MDRD (S/P/Bld) [Vol rate/Area] 26 mL/min/{1.73_m2} Low >60 [facility] Comment on above: Result Comment: mL/m in/1.73m2 CKD-EPI Creatinine Equation (2020) Performed By: #### L 501.5200, L100.0500, L501.2300, L500.2500 ####[facility] [address] [place], [address] Glucose [Mass/Vol] 101 mg/dL High 70-99 [facility] Comment on above: Performed By: #### L 501.5200, L100.0500, L501.2300, L500.2500 ####[facility] [address] [place], [address] Potassium [Moles/Vol] 4.1 mmol/L Normal 3.3-5.1 [facility] Comment on above: Performed By: #### L 501.5200, L100.0500, L501.2300, L500.2500 ####[facility] [address] [place], [address] Sodium [Moles/Vol] 136 mmol/L Normal 133-145 [facility] Comment on above: Performed By: #### L 501.5200, L100.0500, L501.2300, L500.2500 ####[facility] [address] [place], [address] Urea nitrogen [Mass/Vol] 43 mg/dL High 4-19 [facility] Comment on above: Performed By: #### L 501.5200, L100.0500, L501.2300, L500.2500 ####[facility] [address] [place], [address] CBC-Complete Blood Cnt No Di ffon 07-25-2024 Erythrocyte distribution width (RBC) [Ratio] 17.2 % High 11.6-14.6 [facility] Comment on above: Performed By: #### L 501.5200, L100.0500, L501.2300, L500.2500 ####[facility] [address] [place], [address] Hematocrit (Bld) [Volume fraction] 27.3 % Low 37-47 [facility] Comment on above: Performed By: #### L 501.5200, L100.0500, L501.2300, L500.2500 ####[facility] [address] [place], [address] Hemoglobin (Bld) [Mass/Vol] 8.2 g/dL Low 12.0-15.0 [facility] Comment on above: Performed By: #### L 501.5200, L100.0500, L501.2300, L500.2500 ####[facility] [address] [place], [address] MCH (RBC) [Entitic mass] 26.5 pg Low 27.0-32.0 [facility] Comment on above: Performed By: #### L 501.5200, L100.0500, L501.2300, L500.2500 ####[facility] [address] [place], [address] MCHC (RBC) [Mass/Vol] 30.0 g/dL Low 32-36 [facility] Comment on above: Performed By: #### L 501.5200, L100.0500, L501.2300, L500.2500 ####[facility] [address] [place], [address] MCV (RBC) [Entitic vol] 88.1 fL Normal 81-99 [facility] Comment on above: Performed By: #### L 501.5200, L100.0500, L501.2300, L500.2500 ####[facility] [address] [place], [address] Platelet mean volume (Bld) [Entitic vol] 8.8 fL Normal 6.2-12.0 [facility] Comment on above: Performed By: #### L 501.5200, L100.0500, L501.2300, L500.2500 ####[facility] [address] [place], [address] Platelets (Bld) [#/Vol] 317 10*3/uL Normal 150-450 [facility] Comment on above: Performed By: #### L 501.5200, L100.0500, L501.2300, L500.2500 ####[facility] [address] [place], [address] RBC (Bld) [#/Vol] 3.10 10*6/uL Low 4.2-5.4 [facility] Comment on above: Performed By: #### L 501.5200, L100.0500, L501.2300, L500.2500 ####[facility] [address] [place], [address] RDW SD 55.3 fl High 35.1-43.9 [facility] Comment on above: Performed By: #### L 501.5200, L100.0500, L501.2300, L500.2500 ####[facility] [address] [place], [address] WBC (Bld) [#/Vol] 10.8 10*3/uL Normal 4.4-11.0 [facility] Comment on above: Performed By: #### L 501.5200, L100.0500, L501.2300, L500.2500 ####[facility] [address] [place], [address] Gram Stainon 07-25-2024 GS left lower abdomen Gram Stain No organisms seen No cells seen Normal [facility] Comment on above: Performed By: #### M 100.3000, M100.1999, L8200.1075 ####[facility] [address] [place], [address] Gram stainOrdered By: Panda Kessler on 07-25-2024 Microscopic observation Gram stain Nom (Unsp spec) [facility] MRSA Wound DNA by PCRon 06-30 MRSA DNA ASSAY Negative Normal Negative [facility] Comment on above: Order Comment: left lower abdomen Performed By: #### M 100.3000, M100.1999, L8200.1075 ####[facility] [address] [place], [address] SA DNA ASSAY Negative Normal Negative [facility] Comment on above: Order Comment: left lower abdomen Performed By: #### M 100.3000, M100.1999, L8200.1075 ####[facility] [address] [place], [address] MRSA detection PCROrdered By : Remedios Kessler on 07-25-2024 MRSA detection PCR Negative Negative [facility] Magnesiumon 07-25-2024 Magnesium [Mass/Vol] 1.9 mg/dL Normal 1.5-2.2 [facility] Comment on above: Performed By: #### L 501.5200, L100.0500, L501.2300, L500.2500 ####[facility] [address] [place], [address] Phosphoruson 07-25-2024 Phosphate [Mass/Vol] 4.9 mg/dL High 2.7-4.5 [facility] Comment on above: Performed By: #### L 501.5200, L100.0500, L501.2300, L500.2500 ####[facility] [address] [place], [address] Routine wound cultureOrdered By: Remedios Kessler on 07-25-2024 Routine wound culture No growth aerobically. [facility] Staphylococcus aureus DNA de tection by probe and target amplification methodOrdered By: Remedios Kessler on 07-25-2024 S. aureus DNA MOISES+probe Ql (Unsp spec) Negative Negative [facility] ALP [Catalytic activity/Vol] Ordered By: Judd Galvin on 07-24-2024 Serum or plasma alkaline phosphatase measurement 45 U/L 35-104 [facility] ALT [Catalytic activity/Vol] Ordered By: Judd Galvin on 07-24-2024 Serum or plasma alanine aminotransferase (ALT) measurement 9 U/L <35 [facility] Albumin [Mass/Vol]Ordered By : Judd Galvin on 07-24-2024 Serum or plasma albumin measurement (mass/volume) 2.4 g/dL Low 3.4-4.8 [facility] Albumin/Globulin [Mass ratio ]Ordered By: Judd Galvin on 07-24-2024 Serum or plasma albumin/globulin mass ratio 0.7 RATIO Low 0.9-2.4 [facility] Bilirubin, totalOrdered By: Judd Galvin on 07-24-2024 Bilirubin [Mass/Vol] 0.32 mg/dL 0.00-1.30 [facility] Bilirubin, total 0.32 mg/dL 0.00-1.30 [facility] CBC W/Diff, Automatedon 06-30 Absolute Lymph 0.57 X10 3/uL Low 0.83-4.51 [facility] Comment on above: Performed By: #### L 500.4050, L100.0100 ####[facility] [address] [place], [address] Absolute Neut 11.6 X10 3/uL High 2.0-7.7 [facility] Comment on above: Performed By: #### L 500.4050, L100.0100 ####[facility] [address] [place], [address] Basophils/100 WBC (Bld) 0.3 % Normal 0-1 [facility] Comment on above: Performed By: #### L 500.4050, L100.0100 ####[facility] [address] [place], [address] Eosinophils/100 WBC (Bld) 0.4 % Normal 0-5 [facility] Comment on above: Performed By: #### L 500.4050, L100.0100 ####[facility] [address] [place], [address] Erythrocyte distribution width (RBC) [Ratio] 17.2 % High 11.6-14.6 [facility] Comment on above: Performed By: #### L 500.4050, L100.0100 ####[facility] [address] [place], [address] Hematocrit (Bld) [Volume fraction] 29.6 % Low 37-47 [facility] Comment on above: Performed By: #### L 500.4050, L100.0100 ####[facility] [address] [place], [address] Hemoglobin (Bld) [Mass/Vol] 8.8 g/dL Low 12.0-15.0 [facility] Comment on above: Performed By: #### L 500.4050, L100.0100 ####[facility] [address] [place], [address] IG% 1.700 High 0.0-0.9 [facility] Comment on above: Result Comment: IG% - Immature Granulocytes (promyelocytes, myelocytes andmetamyelocytes) > 1% indicates that a LEFT SHIFT is Present. Performed By: #### L 500.4050, L100.0100 ####[facility] [address] [place], [address] Lymphocytes/100 WBC (Bld) 4.3 % Low 19-41 [facility] Comment on above: Performed By: #### L 500.4050, L100.0100 ####[facility] [address] [place], [address] MCH (RBC) [Entitic mass] 26.5 pg Low 27.0-32.0 [facility] Comment on above: Performed By: #### L 500.4050, L100.0100 ####[facility] [address] [place], [address] MCHC (RBC) [Mass/Vol] 29.7 g/dL Low 32-36 [facility] Comment on above: Performed By: #### L 500.4050, L100.0100 ####[facility] [address] [place], [address] MCV (RBC) [Entitic vol] 89.2 fL Normal 81-99 [facility] Comment on above: Performed By: #### L 500.4050, L100.0100 ####[facility] [address] [place], [address] Monocytes/100 WBC (Bld) 6.6 % Normal 0-10 [facility] Comment on above: Performed By: #### L 500.4050, L100.0100 ####[facility] [address] [place], [address] Neutrophils/100 WBC (Bld) 86.7 % High 47-70 [facility] Comment on above: Performed By: #### L 500.4050, L100.0100 ####[facility] [address] [place], [address] Nucleated RBC (Bld) [#/Vol] 0.1 10*3/uL Normal 0-5 [facility] Comment on above: Performed By: #### L 500.4050, L100.0100 ####[facility] [address] [place], [address] Platelet mean volume (Bld) [Entitic vol] 8.4 fL Normal 6.2-12.0 [facility] Comment on above: Performed By: #### L 500.4050, L100.0100 ####[facility] [address] [place], [address] Platelets (Bld) [#/Vol] 303 10*3/uL Normal 150-450 [facility] Comment on above: Performed By: #### L 500.4050, L100.0100 ####[facility] [address] [place], [address] RBC (Bld) [#/Vol] 3.32 10*6/uL Low 4.2-5.4 [facility] Comment on above: Performed By: #### L 500.4050, L100.0100 ####[facility] [address] [place], [address] RDW SD 55.6 fl High 35.1-43.9 [facility] Comment on above: Performed By: #### L 500.4050, L100.0100 ####[facility] [address] [place], [address] WBC (Bld) [#/Vol] 13.4 10*3/uL High 4.4-11.0 [facility] Comment on above: Performed By: #### L 500.4050, L100.0100 ####[facility] [address] [place], [address] Comprehensive Metabolic Prof ilon 07-24-2024 Albumin [Mass/Vol] 2.4 g/dL Low 3.4-4.8 [facility] Comment on above: Performed By: #### L 500.4050, L100.0100 ####[facility] [address] [place], [address] Albumin/Globulin [Mass ratio] 0.7 {ratio} Low 0.9-2.4 [facility] Comment on above: Performed By: #### L 500.4050, L100.0100 ####[facility] [address] [place], [address] ALK PHOS 45 U/L Normal 35-104 [facility] Comment on above: Performed By: #### L 500.4050, L100.0100 ####[facility] [address] [place], [address] ALT [Catalytic activity/Vol] 9 U/L Normal <=34 [facility] Comment on above: Performed By: #### L 500.4050, L100.0100 ####[facility] [address] [place], [address] Anion gap [Moles/Vol] 10 mmol/L Normal 5-15 [facility] Comment on above: Performed By: #### L 500.4050, L100.0100 ####[facility] [address] [place], [address] AST [Catalytic activity/Vol] 20 U/L Normal <=31 [facility] Comment on above: Performed By: #### L 500.4050, L100.0100 ####[facility] [address] [place], [address] Bilirubin [Mass/Vol] 0.32 mg/dL Normal 0.00-1.30 [facility] Comment on above: Performed By: #### L 500.4050, L100.0100 ####[facility] [address] [place], [address] BUN/CRE 19.3 RATIO Normal 10-20 [facility] Comment on above: Performed By: #### L 500.4050, L100.0100 ####[facility] [address] [place], [address] Calcium [Mass/Vol] 8.7 mg/dL Normal 7.6-11.0 [facility] Comment on above: Performed By: #### L 500.4050, L100.0100 ####[facility] [address] [place], [address] Chloride [Moles/Vol] 100 mmol/L Normal 96-108 [facility] Comment on above: Performed By: #### L 500.4050, L100.0100 ####[facility] [address] [place], [address] CO2 [Moles/Vol] 26.3 mmol/L Normal 22.0-29.0 [facility] Comment on above: Performed By: #### L 500.4050, L100.0100 ####[facility] [address] [place], [address] Creatinine [Mass/Vol] 1.8 mg/dL High 0.6-1.0 [facility] Comment on above: Performed By: #### L 500.4050, L100.0100 ####[facility] [address] [place], [address] ECRCL 22.25 ml/min Normal [facility] Comment on above: Performed By: #### L 500.4050, L100.0100 ####[facility] [address] [place], [address] GFR/1.73 sq M.predicted among non-blacks MDRD (S/P/Bld) [Vol rate/Area] 32 mL/min/{1.73_m2} Low >60 [facility] Comment on above: Result Comment: mL/m in/1.73m2 CKD-EPI Creatinine Equation (2020) Performed By: #### L 500.4050, L100.0100 ####[facility] [address] [place], [address] Globulin (S) [Mass/Vol] 3.6 g/dL Normal 2.2-4.2 [facility] Comment on above: Performed By: #### L 500.4050, L100.0100 ####[facility] [address] [place], [address] Glucose [Mass/Vol] 68 mg/dL Low 70-99 [facility] Comment on above: Performed By: #### L 500.4050, L100.0100 ####[facility] [address] [place], [address] Potassium [Moles/Vol] 4.0 mmol/L Normal 3.3-5.1 [facility] Comment on above: Performed By: #### L 500.4050, L100.0100 ####[facility] [address] [place], [address] Sodium [Moles/Vol] 137 mmol/L Normal 133-145 [facility] Comment on above: Performed By: #### L 500.4050, L100.0100 ####[facility] [address] [place], [address] T PROT 6.0 g/dL Normal 5.9-8.4 [facility] Comment on above: Performed By: #### L 500.4050, L100.0100 ####[facility] [address] [place], [address] Urea nitrogen [Mass/Vol] 34 mg/dL High 4-19 [facility] Comment on above: Performed By: #### L 500.4050, L100.0100 ####[facility] [address] [place], [address] Consultation - Nephrologyon 07-24-2024 Consultation - Nephrology Normal [facility] EGD Reporton 07-24-2024 EGD Report Normal [facility] MR/POSTOP.ANEon 07-24-2024 MR/POSTOP.ANE Normal [facility] MR/[id number] 07-24-2024 MR/POSTOPAN2 Normal [facility] No Panel InformationOrdered By: Judd Galvin on 07-24-2024 20 U/L <32 [facility] Serum globulin measurementOr dered By: Judd Galvin on 07-24-2024 Globulin (S) [Mass/Vol] 3.6 g/dL 2.2-4.2 [facility] Serum globulin measurement 3.6 g/dL 2.2-4.2 [facility] Serum or plasma alanine camargo otransferase (ALT) measurementOrdered By: Judd Galvin on 07-24-2024 ALT [Catalytic activity/Vol] 9 U/L <35 [facility] Serum or plasma albumin megan urement (mass/volume)Ordered By: Judd Galvin on 07-24-2024 Albumin [Mass/Vol] 2.4 g/dL Low 3.4-4.8 [facility] Serum or plasma albumin/glob ulin mass ratioOrdered By: Judd Galvin on 07-24-2024 Albumin/Globulin [Mass ratio] 0.7 {ratio} Low 0.9-2.4 [facility] Serum or plasma alkaline susan sphatase measurementOrdered By: Judd Galvin on 07-24-2024 ALP [Catalytic activity/Vol] 45 U/L 35-104 [facility] Total proteinOrdered By: Velia Galvin on 07-24-2024 Protein [Mass/Vol] 6.0 g/dL 5.9-8.4 [facility] Total protein 6.0 g/dL 5.9-8.4 [facility] Basic Metabolic Profile (BMP )on 07-23-2024 BUN/CRE 19.5 RATIO Normal 10-20 [facility] Comment on above: Result Comment: AMENDED REPORT 07/23/241558 BUN/CRE previously reported as: 18.4 RATIO Performed By: #### L 500.2500, L100.0100 ####[facility] [address] [place], [address] Creatinine [Mass/Vol] 1.7 mg/dL High 0.6-1.0 [facility] Comment on above: Result Comment: AMENDED REPORT 07/23/241558 CREAT,SERUM previously reported as: 1.6 H mg/dL Performed By: #### L 500.2500, L100.0100 ####[facility] [address] [place], [address] ECRCL 26.32 ml/min Normal [facility] Comment on above: Result Comment: AMENDED REPORT 07/23/241558 Estimated CRCL previously reported as: 27.97 ml/min Performed By: #### L 500.2500, L100.0100 ####[facility] [address] [place], [address] GFR/1.73 sq M.predicted among non-blacks MDRD (S/P/Bld) [Vol rate/Area] 32 mL/min/{1.73_m2} Low >60 [facility] Comment on above: Result Comment: mL/m in/1.73m2 CKD-EPI Creatinine Equation (2020) AMENDED REPORT 07/23/241558 EST GFR previously reported as: 35 LmL/min/1.73m2 CKD-EPI Creatinine Equation (2020) Performed By: #### L 500.2500, L100.0100 ####[facility] [address] [place], [address] Glucose [Mass/Vol] 80 mg/dL Normal 70-99 [facility] Comment on above: Result Comment: AMENDED REPORT 07/23/241558 GLU previously reported as: 78 mg/dL Performed By: #### L 500.2500, L100.0100 ####[facility] [address] [place], [address] Urea nitrogen [Mass/Vol] 32 mg/dL High 4-19 [facility] Comment on above: Result Comment: AMENDED REPORT 07/23/241558 BUN previously reported as: 30 H mg/dL Performed By: #### L 500.2500, L100.0100 ####[facility] [address] [place], [address] Bilirubin directOrdered By: Makenzie Montalvo on 07-23-2024 Bilirubin.direct [Mass/Vol] 0.11 mg/dL 0.00-0.30 [facility] Bilirubin.direct [Mass/Vol]O rdered By: Makenzie Montalvo on 07-23-2024 Bilirubin direct 0.11 mg/dL 0.00-0.30 [facility] CBC W/Diff, Automatedon 06-30 Absolute Lymph 0.61 X10 3/uL Low 0.83-4.51 [facility] Comment on above: Performed By: #### L 500.2500, L100.0100 ####[facility] [address] [place], [address] Absolute Neut 12.5 X10 3/uL High 2.0-7.7 [facility] Comment on above: Performed By: #### L 500.2500, L100.0100 ####[facility] [address] [place], [address] Basophils/100 WBC (Bld) 0.3 % Normal 0-1 [facility] Comment on above: Performed By: #### L 500.2500, L100.0100 ####[facility] [address] [place], [address] Eosinophils/100 WBC (Bld) 0.1 % Normal 0-5 [facility] Comment on above: Performed By: #### L 500.2500, L100.0100 ####[facility] [address] [place], [address] Erythrocyte distribution width (RBC) [Ratio] 17.2 % High 11.6-14.6 [facility] Comment on above: Performed By: #### L 500.2500, L100.0100 ####[facility] [address] [place], [address] Hematocrit (Bld) [Volume fraction] 30.1 % Low 37-47 [facility] Comment on above: Performed By: #### L 500.2500, L100.0100 ####[facility] [address] [place], [address] Hemoglobin (Bld) [Mass/Vol] 8.8 g/dL Low 12.0-15.0 [facility] Comment on above: Performed By: #### L 500.2500, L100.0100 ####[facility] [address] [place], [address] IG% 2.000 High 0.0-0.9 [facility] Comment on above: Result Comment: IG% - Immature Granulocytes (promyelocytes, myelocytes andmetamyelocytes) > 1% indicates that a LEFT SHIFT is Present. Performed By: #### L 500.2500, L100.0100 ####[facility] [address] [place], [address] Lymphocytes/100 WBC (Bld) 4.3 % Low 19-41 [facility] Comment on above: Performed By: #### L 500.2500, L100.0100 ####[facility] [address] [place], [address] MCH (RBC) [Entitic mass] 26.3 pg Low 27.0-32.0 [facility] Comment on above: Performed By: #### L 500.2500, L100.0100 ####[facility] [address] [place], [address] MCHC (RBC) [Mass/Vol] 29.2 g/dL Low 32-36 [facility] Comment on above: Performed By: #### L 500.2500, L100.0100 ####[facility] [address] [place], [address] MCV (RBC) [Entitic vol] 90.1 fL Normal 81-99 [facility] Comment on above: Performed By: #### L 500.2500, L100.0100 ####[facility] [address] [place], [address] Monocytes/100 WBC (Bld) 5.7 % Normal 0-10 [facility] Comment on above: Performed By: #### L 500.2500, L100.0100 ####[facility] [address] [place], [address] Neutrophils/100 WBC (Bld) 87.6 % High 47-70 [facility] Comment on above: Performed By: #### L 500.2500, L100.0100 ####[facility] [address] [place], [address] Nucleated RBC (Bld) [#/Vol] 0 10*3/uL Normal 0-5 [facility] Comment on above: Performed By: #### L 500.2500, L100.0100 ####[facility] [address] [place], [address] Platelet mean volume (Bld) [Entitic vol] 8.9 fL Normal 6.2-12.0 [facility] Comment on above: Performed By: #### L 500.2500, L100.0100 ####[facility] [address] [place], [address] Platelets (Bld) [#/Vol] 347 10*3/uL Normal 150-450 [facility] Comment on above: Performed By: #### L 500.2500, L100.0100 ####[facility] [address] [place], [address] RBC (Bld) [#/Vol] 3.34 10*6/uL Low 4.2-5.4 [facility] Comment on above: Performed By: #### L 500.2500, L100.0100 ####[facility] [address] [place], [address] RDW SD 55.6 fl High 35.1-43.9 [facility] Comment on above: Performed By: #### L 500.2500, L100.0100 ####[facility] [address] [place], [address] WBC (Bld) [#/Vol] 14.3 10*3/uL High 4.4-11.0 [facility] Comment on above: Performed By: #### L 500.2500, L100.0100 ####[facility] [address] [place], [address] Chloride [Moles/Vol]Ordered By: Makenzie Montalvo on 07-23-2024 Serum or plasma chloride measurement (moles/volume) 98 mmol/L 98-107 [facility] Emergency Department Summary on 07-23-2024 Emergency Department Summary Normal [facility] H AND P Exam - Hospitaliston 07-23-2024 H&P Exam - Hospitalist Normal [facility] Liver Profileon 07-23-2024 Albumin [Mass/Vol] 2.7 g/dL Low 3.4-4.8 [facility] Comment on above: Performed By: #### L 500.3400 ####[facility] [address] [place], [address] ALK PHOS 50 U/L Normal 35-104 [facility] Comment on above: Performed By: #### L 500.3400 ####[facility] [address] [place], [address] ALT [Catalytic activity/Vol] 13 U/L Normal <=34 [facility] Comment on above: Performed By: #### L 500.3400 ####[facility] [address] [place], [address] AST [Catalytic activity/Vol] 23 U/L Normal <=31 [facility] Comment on above: Result Comment: Hemo lysis present, Results??could be affected.?? Performed By: #### L 500.3400 ####[facility] [address] [place], [address] Bilirubin [Mass/Vol] 0.30 mg/dL Normal 0.00-1.30 [facility] Comment on above: Performed By: #### L 500.3400 ####[facility] [address] [place], [address] Bilirubin.direct [Mass/Vol] 0.11 mg/dL Normal 0.00-0.30 [facility] Comment on above: Result Comment: Hemo lysis present, Results??could be affected.?? Performed By: #### L 500.3400 ####[facility] [address] [place], [address] Globulin (S) [Mass/Vol] 3.7 g/dL Normal 2.2-4.2 [facility] Comment on above: Performed By: #### L 500.3400 ####[facility] [address] [place], [address] T PROT 6.3 g/dL Normal 5.9-8.4 [facility] Comment on above: Performed By: #### L 500.3400 ####[facility] [address] [place], [address] MR/CON.PCM.GIon 07-23-2024 MR/CON.PCM.GI Normal [facility] Serum or plasma chloride claudio surement (moles/volume)Ordered By: Makenzie Montalvo on 07-23-2024 Chloride [Moles/Vol] 98 mmol/L 98-107 [facility] Stool Occult Blood iFOBon STOB Negative Normal [facility] Comment on above: Performed By: #### M 100.7900 ####[facility] [address] [place], [address] Stool gastrointestinal hemog lobin detection by immunologic methodOrdered By: Makenzie Montalvo on 07-23-2024 Lower GI hemoglobin IA Ql (Stl) [facility] Urinalysis, Completeon 07-23 BACTERIA Normal None Seen [facility] Comment on above: Order Comment: ADWOA CTOR TO SPECIFY Result Comment: PT D ISCHARGED Performed By: #### L 400.0001 ####[facility] [address] [place], [address] BILIRUBIN URINE Normal Negative [facility] Comment on above: Order Comment: ADWOA CTOR TO SPECIFY Result Comment: PT D ISCHARGED Performed By: #### L 400.0001 ####[facility] [address] [place], [address] Clarity (U) Normal Clear [facility] Comment on above: Order Comment: ADWOA CTOR TO SPECIFY Result Comment: PT D ISCHARGED Performed By: #### L 400.0001 ####[facility] [address] [place], [address] Color (U) Normal Yellow [facility] Comment on above: Order Comment: ADWOA CTOR TO SPECIFY Result Comment: PT D ISCHARGED Performed By: #### L 400.0001 ####[facility] [address] [place], [address] EPI,SQUAMOUS Normal 5-10 [facility] Comment on above: Order Comment: ADWOA CTOR TO SPECIFY Result Comment: PT D ISCHARGED Performed By: #### L 400.0001 ####[facility] [address] [place], [address] GLUCOSE, UR Normal Normal [facility] Comment on above: Order Comment: COLLE CTOR TO SPECIFY Result Comment: PT D ISCHARGED Performed By: #### L 400.0001 ####[facility] [address] [place], [address] KETONE UR Normal Negative [facility] Comment on above: Order Comment: COLLE CTOR TO SPECIFY Result Comment: PT D ISCHARGED Performed By: #### L 400.0001 ####[facility] [address] [place], [address] LEUK ESTERASE Normal Negative [facility] Comment on above: Order Comment: COLLE CTOR TO SPECIFY Result Comment: PT D ISCHARGED Performed By: #### L 400.0001 ####[facility] [address] [place] [id number] Mucus Ql (Urine sed) Normal [facility] Comment on above: Order Comment: COLLE CTOR TO SPECIFY Result Comment: PT D ISCHARGED Performed By: #### L 400.0001 ####[facility] [address] [place], [address] Nitrite Ql (U) Normal Negative [facility] Comment on above: Order Comment: COLLE CTOR TO SPECIFY Result Comment: PT D ISCHARGED Performed By: #### L 400.0001 ####[facility] [address] [place], [address] OCCULT BLOOD-UR Normal Negative [facility] Comment on above: Order Comment: COLLE CTOR TO SPECIFY Result Comment: PT D ISCHARGED Performed By: #### L 400.0001 ####[facility] [address] [place], [address] pH UR Normal 5.0 - 8.0 [facility] Comment on above: Order Comment: COLLE CTOR TO SPECIFY Result Comment: PT D ISCHARGED Performed By: #### L 400.0001 ####[facility] [address] [place], [address] PROT DIPSTX Normal Negative [facility] Comment on above: Order Comment: COLLE CTOR TO SPECIFY Result Comment: PT D ISCHARGED Performed By: #### L 400.0001 ####[facility] [address] [place], [address] RBC Normal 0-5 [facility] Comment on above: Order Comment: COLLE CTOR TO SPECIFY Result Comment: PT D ISCHARGED Performed By: #### L 400.0001 ####[facility] [address] [place], [address] SP.GR. DIPSTX Normal 1.002-1.03 0 [facility] Comment on above: Order Comment: COLLE CTOR TO SPECIFY Result Comment: PT D ISCHARGED Performed By: #### L 400.0001 ####[facility] [address] [place], [address] UR Preservative Normal [facility] Comment on above: Order Comment: COLLE CTOR TO SPECIFY Result Comment: PT D ISCHARGED Performed By: #### L 400.0001 ####[facility] [address] [place], [address] UROBILI Normal Normal [facility] Comment on above: Order Comment: COLLE CTOR TO SPECIFY Result Comment: PT D ISCHARGED Performed By: #### L 400.0001 ####[facility] [address] [place], [address] WBC Normal 0-5 [facility] Comment on above: Order Comment: COLLE CTOR TO SPECIFY Result Comment: PT D ISCHARGED Performed By: #### L 400.0001 ####[facility] [address] [place], [address] 12 Lead EKGon 07-18-2024 12 Lead EKG Normal [facility] ALP [Catalytic activity/Vol] Ordered By: Sheldon Toribio on 07-18-2024 Serum or plasma alkaline phosphatase measurement 48 U/L 45-117 [facility] ALT [Catalytic activity/Vol] Ordered By: Sheldon Stringero on 07-18-2024 Serum or plasma alanine aminotransferase (ALT) measurement 14 U/L 13-56 [facility] Absolute lymphocyte countOrd ered By: Sheldongeorge Stringero on 07-18-2024 Lymphocytes Auto (Unsp spec) [#/Vol] 0.54 10*3/uL Low 0.83-4.51 [facility] Absolute neutrophil countOrd ered By: Sheldongeorge Stringero on 07-18-2024 Absolute neutrophil count 6.7 X10^3/uL 2.0-7.7 [facility] Albumin [Mass/Vol]Ordered By : Sheldongeorge Stringero on 07-18-2024 Serum or plasma albumin measurement (mass/volume) 2.0 g/dL Low 3.2-5.0 [facility] Albumin to globulin ratioOrd ered By: Sheldongeorge Stringero on 07-18-2024 Albumin to globulin ratio 0.4 RATIO Low 0.9-2.4 [facility] Antigen C Gammacloneon 07-18 ANTIGEN ID Negative Normal [facility] Comment on above: Performed By: #### B AGC ####[facility] [address] [place], [address] Performed By: #### B AGK ####[facility] [address] [place], [address] Antigen E Gammacloneon 07-18 ANTIGEN ID Positive Normal [facility] Comment on above: Performed By: #### B AGE ####[facility] [address] [place], [address] Antigen Fyaon 07-18-2024 ANTIGEN ID Negative Normal [facility] Comment on above: Performed By: #### B AGFYA ####[facility] [address] [place], [address] Automated lymphocyte count a s percentage of total leukocytesOrdered By: Sheldon Toribio on 07-18-2024 Lymphocytes/100 WBC Auto (Unsp spec) 6.6 % Low 19-41 [facility] [id number] 07-18-2024 ANTIBODY ID Normal [facility] Comment on above: Order Comment: AN Result Comment: CFYA WARM Performed By: #### L 100.0100, L503.6005, BTS, L500.4050, [id number], L501.4020 ####[facility] [address] [place], [address] Base excess Calc (BldV) [Mol es/Vol]Ordered By: Sheldon Toribio on 07-18-2024 Blood base excess determination 10 mmol/L High -2-2 [facility] Basophil percentageOrdered B y: Sheldon Toribio on 07-18-2024 Basophils/100 WBC (Bld) 0.2 % 0-1 [facility] Basophil percentage 0.2 % 0-1 [facility] Bilirubin, totalOrdered By: Sheldon Toribio on 07-18-2024 Bilirubin [Mass/Vol] 0.30 mg/dL 0.20-1.00 [facility] Bilirubin, total 0.30 mg/dL 0.20-1.00 [facility] Blood Gases by CPSon 025 Base excess Calc (Bld) [Moles/Vol] 10 mmol/L High -2 to +2 [facility] Comment on above: Performed By: #### L 9000.0800 ####[facility] [address] [place], [address] Blood Gas Type ART Normal [facility] Comment on above: Performed By: #### L 9000.0800 ####[facility] [address] [place], [address] CO2 [Moles/Vol] 35 mmol/L Normal [facility] Comment on above: Performed By: #### L 9000.0800 ####[facility] [address] [place], [address] FI02 3.0 Normal [facility] Comment on above: Performed By: #### L 9000.0800 ####[facility] [address] [place], [address] HCO3 (Bld) [Moles/Vol] 33.3 mmol/L High 22-26 [facility] Comment on above: Performed By: #### L 9000.0800 ####[facility] [address] [place], [address] Mode Not entered Normal [facility] Comment on above: Performed By: #### L 9000.0800 ####[facility] [address] [place], [address] O2 Delivery Dev Cannula Normal [facility] Comment on above: Performed By: #### L 9000.0800 ####[facility] [address] [place], [address] pCO2 42.4 mmHg Normal 35-45 [facility] Comment on above: Performed By: #### L 9000.0800 ####[facility] [address] [place], [address] pH (Bld) 7.50 [pH] High 7.35-7.45 [facility] Comment on above: Performed By: #### L 9000.0800 ####[facility] [address] [place], [address] PO2 82 mmHG Normal 75-100 [facility] Comment on above: Performed By: #### L 9000.0800 ####[facility] [address] [place], [address] SITE L Brach Normal [facility] Comment on above: Performed By: #### L 9000.0800 ####[facility] [address] [place], [address] SO2 97 Normal 95-99 [facility] Comment on above: Performed By: #### L 9000.0800 ####[facility] [address] [place], [address] Blood base excess determinat ionOrdered By: Sheldon Toribio on 07-18-2024 Base excess Calc (BldV) [Moles/Vol] 10 mmol/L High -2-2 [facility] Blood bicarbonate measuremen tOrdered By: Sheldon Toribio on 07-18-2024 HCO3 (Bld) [Moles/Vol] 33.3 mmol/L High - [facility] Blood bicarbonate measurement 33.3 mmol/L High [facility] Blood urea nitrogen (BUN)/cr eatinine ratioOrdered By: Sheldon Toribio on 07-18-2024 Blood urea nitrogen (BUN)/creatinine ratio 14.8 RATIO 03-17 [facility] CBC W/Diff, Automatedon 06-30 Absolute Lymph 0.54 X10 3/uL Low 0.83-4.51 [facility] Comment on above: Performed By: #### L 100.0100, L503.6005, BTS, L500.4050, [id number], L501.4020 ####[facility] [address] [place], [address] Absolute Neut 6.7 X10 3/uL Normal 2.0-7.7 [facility] Comment on above: Performed By: #### L 100.0100, L503.6005, BTS, L500.4050, [id number], L501.4020 ####[facility] [address] [place], [address] Basophils/100 WBC (Bld) 0.2 % Normal 0-1 [facility] Comment on above: Performed By: #### L 100.0100, L503.6005, BTS, L500.4050, ZPDE2520, L501.4020 ####[facility] [address] [place], [address] Eosinophils/100 WBC (Bld) 0.7 % Normal 0-5 [facility] Comment on above: Performed By: #### L 100.0100, L503.6005, BTS, L500.4050, [id number], L501.4020 ####[facility] [address] [place], [address] Erythrocyte distribution width (RBC) [Ratio] 16.8 % High 11.6-14.6 [facility] Comment on above: Performed By: #### L 100.0100, L503.6005, BTS, L500.4050, [id number], L501.4020 ####[facility] [address] [place], [address] Hematocrit (Bld) [Volume fraction] 32.7 % Low 37-47 [facility] Comment on above: Performed By: #### L 100.0100, L503.6005, BTS, L500.4050, [id number], L501.4020 ####[facility] [address] [place], [address] Hemoglobin (Bld) [Mass/Vol] 9.7 g/dL Low 12.0-15.0 [facility] Comment on above: Performed By: #### L 100.0100, L503.6005, BTS, L500.4050, [id number], L501.4020 ####[facility] [address] [place], [address] IG% 1.700 High 0.0-0.9 [facility] Comment on above: Result Comment: IG% - Immature Granulocytes (promyelocytes, myelocytes andmetamyelocytes) > 1% indicates that a LEFT SHIFT is Present. Performed By: #### L 100.0100, L503.6005, BTS, L500.4050, [id number], L501.4020 ####[facility] [address] [place], [address] Lymphocytes/100 WBC (Bld) 6.6 % Low 19-41 [facility] Comment on above: Performed By: #### L 100.0100, L503.6005, BTS, L500.4050, [id number], L501.4020 ####[facility] [address] [place], [address] MCH (RBC) [Entitic mass] 26.6 pg Low 27.0-32.0 [facility] Comment on above: Performed By: #### L 100.0100, L503.6005, BTS, L500.4050, [id number], L501.4020 ####[facility] [address] [place], [address] MCHC (RBC) [Mass/Vol] 29.7 g/dL Low 32-36 [facility] Comment on above: Performed By: #### L 100.0100, L503.6005, BTS, L500.4050, [id number], L501.4020 ####[facility] [address] [place], [address] MCV (RBC) [Entitic vol] 89.6 fL Normal 81-99 [facility] Comment on above: Performed By: #### L 100.0100, L503.6005, BTS, L500.4050, [id number], L501.4020 ####[facility] [address] [place], [address] Monocytes/100 WBC (Bld) 9.7 % Normal 0-10 [facility] Comment on above: Performed By: #### L 100.0100, L503.6005, BTS, L500.4050, OJPM7535, L501.4020 ####[facility] [address] [place], [address] Neutrophils/100 WBC (Bld) 81.1 % High 47-70 [facility] Comment on above: Performed By: #### L 100.0100, L503.6005, BTS, L500.4050, [id number], L501.4020 ####[facility] [address] [place], [address] Nucleated RBC (Bld) [#/Vol] 0 10*3/uL Normal 0-5 [facility] Comment on above: Performed By: #### L 100.0100, L503.6005, BTS, L500.4050, [id number], L501.4020 ####[facility] [address] [place], [address] Platelet mean volume (Bld) [Entitic vol] 9.0 fL Normal 6.2-12.0 [facility] Comment on above: Performed By: #### L 100.0100, L503.6005, BTS, L500.4050, [id number], L501.4020 ####[facility] [address] [place], [address] Platelets (Bld) [#/Vol] 281 10*3/uL Normal 150-450 [facility] Comment on above: Performed By: #### L 100.0100, L503.6005, BTS, L500.4050, HVCI3784, L501.4020 ####[facility] [address] [place], [address] RBC (Bld) [#/Vol] 3.65 10*6/uL Low 4.2-5.4 [facility] Comment on above: Performed By: #### L 100.0100, L503.6005, BTS, L500.4050, [id number], L501.4020 ####[facility] [address] [place], [address] RDW SD 54.5 fl High 35.1-43.9 [facility] Comment on above: Performed By: #### L 100.0100, L503.6005, BTS, L500.4050, [id number], L501.4020 ####[facility] [address] [place], [address] WBC (Bld) [#/Vol] 8.2 10*3/uL Normal 4.4-11.0 [facility] Comment on above: Performed By: #### L 100.0100, L503.6005, BTS, L500.4050, [id number], L501.4020 ####[facility] [address] [place], [address] CTA Abd/Pelvis W/WO Contrast on 07-18-2024 CTA Abd/Pelvis W/WO Contrast Normal [facility] Calcium [Mass/Vol]Ordered By : Sheldon Toriboi on 07-18-2024 Serum or plasma calcium measurement (mass/volume) 8.7 mg/dL 8.5-10.1 [facility] Carbon dioxide measurementOr dered By: Sheldon Toribio on 07-18-2024 CO2 [Moles/Vol] 34.0 mmol/L High 21.0-32.0 [facility] Carbon dioxide measurement 34.0 mmol/L High 21.0-32.0 [facility] Chloride measurementOrdered By: Sheldon Toribio on 07-18-2024 Chloride [Moles/Vol] 97 mmol/L Low 98-107 [facility] Chloride measurement 97 mmol/L Low 98-107 [facility] Comprehensive Metabolic Prof ilon 07-18-2024 Albumin [Mass/Vol] 2.0 g/dL Low 3.2-5.0 [facility] Comment on above: Order Comment: 'TROP ' Serial specimen #1, #2 or #3: 1 Performed By: #### L 100.0100, L503.6005, BTS, L500.4050, [id number], L501.4020 ####[facility] [address] [place], [address] Albumin/Globulin [Mass ratio] 0.4 {ratio} Low 0.9-2.4 [facility] Comment on above: Order Comment: 'TROP ' Serial specimen #1, #2 or #3: 1 Performed By: #### L 100.0100, L503.6005, BTS, L500.4050, [id number], L501.4020 ####[facility] [address] [place], [address] ALK P 48 U/L Normal 45-117 [facility] Comment on above: Order Comment: 'TROP ' Serial specimen #1, #2 or #3: 1 Performed By: #### L 100.0100, L503.6005, BTS, L500.4050, [id number], L501.4020 ####[facility] [address] [place], [address] ALT [Catalytic activity/Vol] 14 U/L Normal 13-56 [facility] Comment on above: Order Comment: 'TROP ' Serial specimen #1, #2 or #3: 1 Performed By: #### L 100.0100, L503.6005, BTS, L500.4050, [id number], L501.4020 ####[facility] [address] [place], [address] AST [Catalytic activity/Vol] 18 U/L Normal 15-37 [facility] Comment on above: Order Comment: 'TROP ' Serial specimen #1, #2 or #3: 1 Performed By: #### L 100.0100, L503.6005, BTS, L500.4050, [id number], L501.4020 ####[facility] [address] [place], [address] Bilirubin [Mass/Vol] 0.30 mg/dL Normal 0.20-1.00 [facility] Comment on above: Order Comment: 'TROP ' Serial specimen #1, #2 or #3: 1 Result Comment: For patients on eltrombopag therapy, use of Dimension Hammon TBIL is not recommended. Performed By: #### L 100.0100, L503.6005, BTS, L500.4050, [id number], L501.4020 ####[facility] [address] [place], [address] BUN/CRE 14.8 RATIO Normal 10-20 [facility] Comment on above: Order Comment: 'TROP ' Serial specimen #1, #2 or #3: 1 Performed By: #### L 100.0100, L503.6005, BTS, L500.4050, [id number], L501.4020 ####[facility] [address] [place], [address] CA,Total 8.7 mg/dL Normal 8.5-10.1 [facility] Comment on above: Order Comment: 'TROP ' Serial specimen #1, #2 or #3: 1 Performed By: #### L 100.0100, L503.6005, BTS, L500.4050, [id number], L501.4020 ####[facility] [address] [place], [address] Chloride [Moles/Vol] 97 mmol/L Low 98-107 [facility] Comment on above: Order Comment: 'TROP ' Serial specimen #1, #2 or #3: 1 Performed By: #### L 100.0100, L503.6005, BTS, L500.4050, [id number], L501.4020 ####[facility] [address] [place], [address] CO2 [Moles/Vol] 34.0 mmol/L High 21.0-32.0 [facility] Comment on above: Order Comment: 'TROP ' Serial specimen #1, #2 or #3: 1 Performed By: #### L 100.0100, L503.6005, BTS, L500.4050, [id number], L501.4020 ####[facility] [address] [place], [address] Creatinine [Mass/Vol] 1.69 mg/dL High 0.55-1.02 [facility] Comment on above: Order Comment: 'TROP ' Serial specimen #1, #2 or #3: 1 Result Comment: The validity of the calculated GFR GFRAA in patients over70 years has not been determined. Clinical correlation isessential. Performed By: #### L 100.0100, L503.6005, BTS, L500.4050, [id number], L501.4020 ####[facility] [address] [place], [address] ECRCL 26.75 ml/min Normal [facility] Comment on above: Order Comment: 'TROP ' Serial specimen #1, #2 or #3: 1 Performed By: #### L 100.0100, L503.6005, BTS, L500.4050, [id number], L501.4020 ####[facility] [address] [place], [address] EST GFR - AA 39 mL/min Low >60 [facility] Comment on above: Order Comment: 'TROP ' Serial specimen #1, #2 or #3: 1 Result Comment: Afri can [place] Citizen GFR Calc Performed By: #### L 100.0100, L503.6005, BTS, L500.4050, [id number], L501.4020 ####[facility] [address] [place], [address] GAP 4 Low 5-15 [facility] Comment on above: Order Comment: 'TROP ' Serial specimen #1, #2 or #3: 1 Performed By: #### L 100.0100, L503.6005, BTS, L500.4050, [id number], L501.4020 ####[facility] [address] [place], [address] GFR/1.73 sq M.predicted among non-blacks MDRD (S/P/Bld) [Vol rate/Area] 33 mL/min/{1.73_m2} Low >60 [facility] Comment on above: Order Comment: 'TROP ' Serial specimen #1, #2 or #3: 1 Result Comment: Non- GFR Calc Performed By: #### L 100.0100, L503.6005, BTS, L500.4050, [id number], L501.4020 ####[facility] [address] [place], [address] Globulin (S) [Mass/Vol] 5.1 g/dL High 2.2-4.2 [facility] Comment on above: Order Comment: 'TROP ' Serial specimen #1, #2 or #3: 1 Performed By: #### L 100.0100, L503.6005, BTS, L500.4050, [id number], L501.4020 ####[facility] [address] [place], [address] Glucose [Mass/Vol] 89 mg/dL Normal 74-106 [facility] Comment on above: Order Comment: 'TROP ' Serial specimen #1, #2 or #3: 1 Performed By: #### L 100.0100, L503.6005, BTS, L500.4050, [id number], L501.4020 ####[facility] [address] [place], [address] Potassium [Moles/Vol] 4.1 mmol/L Normal 3.5-5.1 [facility] Comment on above: Order Comment: 'TROP ' Serial specimen #1, #2 or #3: 1 Performed By: #### L 100.0100, L503.6005, BTS, L500.4050, [id number], L501.4020 ####[facility] [address] [place], [address] Sodium [Moles/Vol] 135 mmol/L Low 136-145 [facility] Comment on above: Order Comment: 'TROP ' Serial specimen #1, #2 or #3: 1 Performed By: #### L 100.0100, L503.6005, BTS, L500.4050, [id number], L501.4020 ####[facility] [address] [place], [address] T PROT 7.1 g/dL Normal 6.4-8.2 [facility] Comment on above: Order Comment: 'TROP ' Serial specimen #1, #2 or #3: 1 Performed By: #### L 100.0100, L503.6005, BTS, L500.4050, [id number], L501.4020 ####[facility] [address] [place], [address] Urea nitrogen [Mass/Vol] 25 mg/dL High 7-18 [facility] Comment on above: Order Comment: 'TROP ' Serial specimen #1, #2 or #3: 1 Performed By: #### L 100.0100, L503.6005, BTS, L500.4050, [id number], L501.4020 ####[facility] [address] [place], [address] Creatinine [Mass/Vol]Ordered By: Sheldon Toribio on 07-18-2024 Serum or plasma creatinine measurement (mass/volume) 1.69 mg/dL High 0.55-1.02 [facility] Determination of fraction of inspired oxygenOrdered By: Sheldon Toribio on 07-18-2024 Determination of fraction of inspired oxygen 3.0 [facility] Emergency Department Summary on 07-18-2024 Emergency Department Summary Normal [facility] Eosinophil percentageOrdered By: Sheldon Toribio on 07-18-2024 Eosinophils/100 WBC (Bld) 0.7 % 0-5 [facility] Eosinophil percentage 0.7 % 0-5 [facility] Erythrocyte distribution wid th (RBC) [Ratio]Ordered By: Sheldon Toribio on 07-18-2024 Erythrocyte distribution width ratio 16.8 % High 11.6-14.6 [facility] Erythrocyte distribution wid th ratioOrdered By: Sheldon Toribio on 07-18-2024 Erythrocyte distribution width (RBC) [Ratio] 16.8 % High 11.6-14.6 [facility] Erythrocyte distribution wid th standard deviationOrdered By: Sheldon Toribio on 07-18-2024 Erythrocyte distribution width (RBC) [Ratio] 54.5 fl High 35.1-43.9 [facility] Erythrocyte distribution width standard deviation 54.5 fl High 35.1-43.9 [facility] Estimated glomerular filtrat ion rate (GFR) AmericanOrdered By: Sheldon Toribio on 07-18-2024 Estimated glomerular filtration rate (GFR) 39 mL/min Low >60 [facility] Estimation of creatinine austen aranceOrdered By: Sheldon Toribio on 07-18-2024 Estimation of creatinine clearance 26.75 ml/min [facility] Gastroenterology Visit Repor ton 07-18-2024 Gastroenterology Visit Report Normal [facility] Glomerular filtration rate ( GFR) estimationOrdered By: Sheldon Toribio on 07-18-2024 GFR/1.73 sq M.predicted among non-blacks MDRD (S/P/Bld) [Vol rate/Area] 33 mL/min/{1.73_m2} Low >60 [facility] Glomerular filtration rate (GFR) estimation 33 mL/min Low >60 [facility] Glucose measurementOrdered B y: Sheldon Toribio on 07-18-2024 Glucose [Mass/Vol] 89 mg/dL 74-106 [facility] Glucose measurement 89 mg/dL 74-106 [facility] Hematocrit Auto (Bld) [Volum e fraction]Ordered By: Sheldon Toribio on 07-18-2024 Hematocrit (Bld) [Volume fraction] 32.7 % Low 37-47 [facility] Automated blood hematocrit (percentage) 32.7 % Low 37-47 [facility] Hemoglobin measurementOrdere d By: Sheldon Toribio on 07-18-2024 Hemoglobin (Bld) [Mass/Vol] 9.7 g/dL Low 12.0-15.0 [facility] Hemoglobin measurement 9.7 g/dL Low 12.0-15.0 [facility] Immature granulocytes/100 WB C Auto (Bld)Ordered By: Sheldon Toribio on 07-18-2024 Immature granulocytes/100 WBC (Bld) 1.700 % High 0.0-0.9 [facility] Automated immature granulocyte percentage 1.700 % High 0.0-0.9 [facility] L501.4020on 07-18-2024 TROPONIN-I HS 24 pg/mL Normal 3.0-54.0 [facility] Comment on above: Order Comment: 'TROP ' Serial specimen #1, #2 or #3: 1 Result Comment: Jorge L patterson Note: New Test Units and Gender Specific Reference Ranges. For more information see Policy Stat Procedure Hammon High Sensitivity Troponin (TNIH) and attachments. Performed By: #### L 100.0100, L503.6005, BTS, L500.4050, [id number], L501.4020 ####[facility] [address] [place], [place], [phone] Lactic Acidon 07-18-2024 Lactate [Moles/Vol] 1.3 mmol/L Normal 0.4-1.9 [facility] Comment on above: Order Comment: Y Performed By: #### L 100.0100, L503.6005, BTS, L500.4050, [id number], L501.4020 ####[facility] [address] [place], [place], [id number] Lactic acid measurementOrder ed By: Sheldon Toribio on 07-18-2024 Lactic acid measurement 1.3 mmol/L 0.4-2.0 [facility] Lymphocytes Auto (Unsp spec) [#/Vol]Ordered By: Sheldon Toribio on 07-18-2024 Absolute lymphocyte count 0.54 X10^3/uL Low 0.83-4.51 [facility] Lymphocytes/100 WBC Auto (Un sp spec)Ordered By: Sheldongeorge Toribio on 07-18-2024 Automated lymphocyte count as percentage of total leukocytes 6.6 % Low 19-41 [facility] MCV (RBC) [Entitic vol]Order ed By: Sheldon Toribio on 07-18-2024 MCV (mean corpuscular volume) determination 89.6 fL 81-99 [facility] MCV (mean corpuscular volume ) determinationOrdered By: Sheldon Toribio on 07-18-2024 MCV (RBC) [Entitic vol] 89.6 fL 81-99 [facility] Mean corpuscular hemoglobin (MCH) determinationOrdered By: Sheldon Toribio on 07-18-2024 MCH (RBC) [Entitic mass] 26.6 pg Low 27.0-32.0 [facility] Mean corpuscular hemoglobin (MCH) determination 26.6 pg Low 27.0-32.0 [facility] Mean corpuscular hemoglobin concentration (MCHC) determinationOrdered By: Sheldon Toribio on 07-18-2024 Mean corpuscular hemoglobin concentration (MCHC) determination 29.7 g/dL Low 32-36 [facility] Mean platelet volume determi nationOrdered By: Sheldon Toribio on 07-18-2024 Mean platelet volume determination 9.0 fl 6.2-12.0 [facility] Measurement, pHOrdered By: Gildardo Toribio on 07-18-2024 pH (Unsp spec) 7.50 [pH] High 7.35-7.45 [facility] Monocyte percentageOrdered B y: Sheldon Toribio on 07-18-2024 Monocytes/100 WBC (Bld) 9.7 % 0-10 [facility] Monocyte percentage 9.7 % 0-10 [facility] Neutrophil percentageOrdered By: Sheldon Toribio on 07-18-2024 Neutrophils/100 WBC (Bld) 81.1 % High 47-70 [facility] Neutrophil percentage 81.1 % High 47-70 [facility] No Panel InformationOrdered By: Sheldon Toribio on 07-18-2024 ART [facility] L Brach [facility] Not entered [facility] Cannula [facility] 18 U/L 15-37 [facility] Nucleated red blood cell per centageOrdered By: Sheldon Toribio on 07-18-2024 Nucleated red blood cell percentage 0 % 0-5 [facility] Oxygen saturation measuremen tOrdered By: Sheldon Toribio on 07-18-2024 Oxygen saturation measurement 97 % 95-99 [facility] Partial pressure of carbon d ioxide measurementOrdered By: Sheldon Toribio on 07-18-2024 Partial pressure of carbon dioxide measurement 42.4 mmHg 35-45 [facility] Partial pressure of oxygen m easurementOrdered By: Sheldon Toribio on 07-18-2024 Partial pressure of oxygen measurement 82 mmHG 75-100 [facility] Platelet countOrdered By: Savana Toribio on 07-18-2024 Platelets (Bld) [#/Vol] 281 10*3/uL 150-450 [facility] Platelet count 281 K/mm3 150-450 [facility] Potassium measurementOrdered By: Sheldon Toribio on 07-18-2024 Potassium [Moles/Vol] 4.1 mmol/L 3.5-5.1 [facility] Potassium measurement 4.1 mmol/L 3.5-5.1 [facility] RBC Auto (Bld) [#/Vol]Ordere d By: Sheldon Toribio on 07-18-2024 RBC (Bld) [#/Vol] 3.65 10*6/uL Low 4.2-5.4 [facility] Automated blood erythrocyte count 3.65 M/mm3 Low 4.2-5.4 [facility] Serum anion gap measurementO rdered By: Sheldon Toribio on 07-18-2024 Serum anion gap measurement 4 Low 5-15 [facility] Serum globulin measurementOr dered By: Sheldon Toribio on 07-18-2024 Globulin (S) [Mass/Vol] 5.1 g/dL High 2.2-4.2 [facility] Serum globulin measurement 5.1 g/dL High 2.2-4.2 [facility] Serum or plasma alanine camargo otransferase (ALT) measurementOrdered By: Sheldon Toribio on 07-18-2024 ALT [Catalytic activity/Vol] 14 U/L 13-56 [facility] Serum or plasma albumin megan urement (mass/volume)Ordered By: Sheldon Toribio on 07-18-2024 Albumin [Mass/Vol] 2.0 g/dL Low 3.2-5.0 [facility] Serum or plasma alkaline susan sphatase measurementOrdered By: Sheldon Toribio on 07-18-2024 ALP [Catalytic activity/Vol] 48 U/L 45-117 [facility] Serum or plasma calcium megan urement (mass/volume)Ordered By: Sheldon Toribio on 07-18-2024 Calcium [Mass/Vol] 8.7 mg/dL 8.5-10.1 [facility] Serum or plasma creatinine m easurement (mass/volume)Ordered By: Sheldon Toribio on 07-18-2024 Creatinine [Mass/Vol] 1.69 mg/dL High 0.55-1.02 [facility] Serum or plasma urea nitroge n measurement (mass/volume)Ordered By: Sheldon Toribio on 07-18-2024 Urea nitrogen [Mass/Vol] 25 mg/dL High 7-18 [facility] Sodium levelOrdered By: Sheldon Toribio on 07-18-2024 Sodium [Moles/Vol] 135 mmol/L Low 136-145 [facility] Sodium level 135 mmol/L Low 136-145 [facility] Total carbon dioxide measure mentOrdered By: Sheldon Toribio on 07-18-2024 CO2 [Moles/Vol] 35 mmol/L [facility] Total carbon dioxide measurement 35 mmol/L [facility] Total proteinOrdered By: Sheldon Toribio on 07-18-2024 Protein [Mass/Vol] 7.1 g/dL 6.4-8.2 [facility] Total protein 7.1 g/dL 6.4-8.2 [facility] Troponin IOrdered By: Sheldon hall on 07-18-2024 Troponin I 24 pg/mL 3.0-54.0 [facility] Troponin I 24 pg/mL 3.0-54.0 [facility] Type AND Screenon 07-18-2024 ABO and Rh group Nom (Bld) Blood group O Rh(D) positive Normal [facility] Comment on above: Order Comment: AN Performed By: #### L 100.0100, L503.6005, BTS, L500.4050, [id number], L501.4020 ####[facility] [address] [place], [place], [id number] Urea nitrogen [Mass/Vol]Orde red By: Sheldon Toribio on 07-18-2024 Serum or plasma urea nitrogen measurement (mass/volume) 25 mg/dL High -18 [facility] White blood cell (WBC) count Ordered By: Sheldon Toribio on 07-18-2024 WBC (Bld) [#/Vol] 8.2 10*3/uL 4.4-11.0 [facility] White blood cell (WBC) count 8.2 K/mm3 4.4-11.0 [facility] pH (Unsp spec)Ordered By: Savana Toribio on 07-18-2024 Measurement, pH 7.50 High 7.35-7.45 [facility] Absolute lymphocyte countOrd ered By: Millie Massey on 06-25-2024 Lymphocytes Auto (Unsp spec) [#/Vol] 0.69 10*3/uL Low 0.83-4.51 [facility] Absolute neutrophil countOrd ered By: Millie Massey on 06-25-2024 Absolute neutrophil count 2.8 X10^3/uL 2.0-7.7 [facility] Automated lymphocyte count a s percentage of total leukocytesOrdered By: Millie Massey on 06-25-2024 Lymphocytes/100 WBC Auto (Unsp spec) 15.6 % Low 19-41 [facility] Basic Metabolic Profile (BMP )on 06-25-2024 BUN/CRE 15.7 RATIO Normal 10-20 [facility] Comment on above: Order Comment: 103.1 Performed By: #### L 501.9520, L500.2500, L100.0100 ####[facility] [address] [place], [address] CA,Total 8.5 mg/dL Normal 8.5-10.1 [facility] Comment on above: Order Comment: 103.1 Performed By: #### L 501.9520, L500.2500, L100.0100 ####[facility] [address] [place], [address] Chloride [Moles/Vol] 104 mmol/L Normal 98-107 [facility] Comment on above: Order Comment: 103.1 Performed By: #### L 501.9520, L500.2500, L100.0100 ####[facility] [address] [place], [address] CO2 [Moles/Vol] 29.0 mmol/L Normal 21.0-32.0 [facility] Comment on above: Order Comment: 103.1 Performed By: #### L 501.9520, L500.2500, L100.0100 ####[facility] [address] [place], [address] Creatinine [Mass/Vol] 2.48 mg/dL High 0.55-1.02 [facility] Comment on above: Order Comment: 103.1 Result Comment: The validity of the calculated GFR GFRAA in patients over70 years has not been determined. Clinical correlation isessential. Performed By: #### L 501.9520, L500.2500, L100.0100 ####[facility] [address] [place], [address] EST GFR - AA 25 mL/min Low >60 [facility] Comment on above: Order Comment: 103.1 Result Comment: Afri can [place] GFR Calc Performed By: #### L 501.9520, L500.2500, L100.0100 ####[facility] [address] [place], [address] GAP 3 Low 5-15 [facility] Comment on above: Order Comment: 103.1 Performed By: #### L 501.9520, L500.2500, L100.0100 ####[facility] [address] [place], [address] GFR/1.73 sq M.predicted among non-blacks MDRD (S/P/Bld) [Vol rate/Area] 21 mL/min/{1.73_m2} Low >60 [facility] Comment on above: Order Comment: 103.1 Result Comment: Non- GFR Calc Performed By: #### L 501.9520, L500.2500, L100.0100 ####[facility] [address] [place], [address] Glucose [Mass/Vol] 84 mg/dL Normal 74-106 [facility] Comment on above: Order Comment: 103.1 Performed By: #### L 501.9520, L500.2500, L100.0100 ####[facility] [address] [place], [address] Potassium [Moles/Vol] 4.6 mmol/L Normal 3.5-5.1 [facility] Comment on above: Order Comment: 103.1 Performed By: #### L 501.9520, L500.2500, L100.0100 ####[facility] [address] [place], [address] Sodium [Moles/Vol] 136 mmol/L Normal 136-145 [facility] Comment on above: Order Comment: 103.1 Performed By: #### L 501.9520, L500.2500, L100.0100 ####[facility] [address] [place], [address] Urea nitrogen [Mass/Vol] 39 mg/dL High 7-18 [facility] Comment on above: Order Comment: 103.1 Performed By: #### L 501.9520, L500.2500, L100.0100 ####[facility] [address] [place], [address] Basophil percentageOrdered B y: Millie Massey on 06-25-2024 Basophils/100 WBC (Bld) 0.7 % 0-1 [facility] Basophil percentage 0.7 % 0-1 [facility] Blood urea nitrogen (BUN)/cr eatinine ratioOrdered By: Millie Massey on 06-25-2024 Blood urea nitrogen (BUN)/creatinine ratio 15.7 RATIO 10- [facility] CBC W/Diff, Automatedon 05-30 Absolute Lymph 0.69 X10 3/uL Low 0.83-4.51 [facility] Comment on above: Order Comment: 103.1 Performed By: #### L 501.9520, L500.2500, L100.0100 ####[facility] [address] [place], [address] Absolute Neut 2.8 X10 3/uL Normal 2.0-7.7 [facility] Comment on above: Order Comment: 103.1 Performed By: #### L 501.9520, L500.2500, L100.0100 ####[facility] [address] [place], [address] Basophils/100 WBC (Bld) 0.7 % Normal 0-1 [facility] Comment on above: Order Comment: 103.1 Performed By: #### L 501.9520, L500.2500, L100.0100 ####[facility] [address] [place], [address] Eosinophils/100 WBC (Bld) 3.2 % Normal 0-5 [facility] Comment on above: Order Comment: 103.1 Performed By: #### L 501.9520, L500.2500, L100.0100 ####[facility] [address] [place], [address] Erythrocyte distribution width (RBC) [Ratio] 16.0 % High 11.6-14.6 [facility] Comment on above: Order Comment: 103.1 Performed By: #### L 501.9520, L500.2500, L100.0100 ####[facility] [address] [place], [address] Hematocrit (Bld) [Volume fraction] 31.2 % Low 37-47 [facility] Comment on above: Order Comment: 103.1 Performed By: #### L 501.9520, L500.2500, L100.0100 ####[facility] [address] [place], [address] Hemoglobin (Bld) [Mass/Vol] 9.4 g/dL Low 12.0-15.0 [facility] Comment on above: Order Comment: 103.1 Performed By: #### L 501.9520, L500.2500, L100.0100 ####[facility] [address] [place], [address] IG% 2.900 High 0.0-0.9 [facility] Comment on above: Order Comment: 103.1 Result Comment: IG% - Immature Granulocytes (promyelocytes, myelocytes andmetamyelocytes) > 1% indicates that a LEFT SHIFT is Present. Performed By: #### L 501.9520, L500.2500, L100.0100 ####[facility] [address] [place], [address] Lymphocytes/100 WBC (Bld) 15.6 % Low 19-41 [facility] Comment on above: Order Comment: 103.1 Performed By: #### L 501.9520, L500.2500, L100.0100 ####[facility] [address] [place], [address] MCH (RBC) [Entitic mass] 27.1 pg Normal 27.0-32.0 [facility] Comment on above: Order Comment: 103.1 Performed By: #### L 501.9520, L500.2500, L100.0100 ####[facility] [address] [place], [address] MCHC (RBC) [Mass/Vol] 30.1 g/dL Low 32-36 [facility] Comment on above: Order Comment: 103.1 Performed By: #### L 501.9520, L500.2500, L100.0100 ####[facility] [address] [place], [address] MCV (RBC) [Entitic vol] 89.9 fL Normal 81-99 [facility] Comment on above: Order Comment: 103.1 Performed By: #### L 501.9520, L500.2500, L100.0100 ####[facility] [address] [place], [address] Monocytes/100 WBC (Bld) 13.8 % High 0-10 [facility] Comment on above: Order Comment: 103.1 Performed By: #### L 501.9520, L500.2500, L100.0100 ####[facility] [address] [place], [address] Neutrophils/100 WBC (Bld) 63.8 % Normal 47-70 [facility] Comment on above: Order Comment: 103.1 Performed By: #### L 501.9520, L500.2500, L100.0100 ####[facility] [address] [place], [address] Nucleated RBC (Bld) [#/Vol] 0 10*3/uL Normal 0-5 [facility] Comment on above: Order Comment: 103.1 Performed By: #### L 501.9520, L500.2500, L100.0100 ####[facility] [address] [place], [address] Platelet mean volume (Bld) [Entitic vol] 9.4 fL Normal 6.2-12.0 [facility] Comment on above: Order Comment: 103.1 Performed By: #### L 501.9520, L500.2500, L100.0100 ####[facility] [address] [place], [address] Platelets (Bld) [#/Vol] 142 10*3/uL Low 150-450 [facility] Comment on above: Order Comment: 103.1 Performed By: #### L 501.9520, L500.2500, L100.0100 ####[facility] [address] [place], [address] RBC (Bld) [#/Vol] 3.47 10*6/uL Low 4.2-5.4 [facility] Comment on above: Order Comment: 103.1 Performed By: #### L 501.9520, L500.2500, L100.0100 ####[facility] [address] [place], [address] RDW SD 52.8 fl High 35.1-43.9 [facility] Comment on above: Order Comment: 103.1 Performed By: #### L 501.9520, L500.2500, L100.0100 ####[facility] [address] [place], [address] WBC (Bld) [#/Vol] 4.4 10*3/uL Normal 4.4-11.0 [facility] Comment on above: Order Comment: 103.1 Performed By: #### L 501.9520, L500.2500, L100.0100 ####[facility] [address] [place], [address] Calcium [Mass/Vol]Ordered By : Millie Massey on 06-25-2024 Serum or plasma calcium measurement (mass/volume) 8.5 mg/dL 8.5-10.1 [facility] Carbon dioxide measurementOr dered By: Millie Massey on 06-25-2024 CO2 [Moles/Vol] 29.0 mmol/L 21.0-32.0 [facility] Carbon dioxide measurement 29.0 mmol/L 21.0-32.0 [facility] Chloride measurementOrdered By: Millie Massey on 06-25-2024 Chloride [Moles/Vol] 104 mmol/L 98-107 [facility] Chloride measurement 104 mmol/L 98-107 [facility] Creatinine [Mass/Vol]Ordered By: Millie Massey on 06-25-2024 Serum or plasma creatinine measurement (mass/volume) 2.48 mg/dL High 0.55-1.02 [facility] Eosinophil percentageOrdered By: Millie Massey on 06-25-2024 Eosinophils/100 WBC (Bld) 3.2 % 0-5 [facility] Eosinophil percentage 3.2 % 0-5 [facility] Erythrocyte distribution wid th (RBC) [Ratio]Ordered By: Millie Massey on 06-25-2024 Erythrocyte distribution width ratio 16.0 % High 11.6-14.6 [facility] Erythrocyte distribution wid th ratioOrdered By: Millie Massey on 06-25-2024 Erythrocyte distribution width (RBC) [Ratio] 16.0 % High 11.6-14.6 [facility] Erythrocyte distribution wid th standard deviationOrdered By: Millie Massey on 06-25-2024 Erythrocyte distribution width (RBC) [Ratio] 52.8 fl High 35.1-43.9 [facility] Erythrocyte distribution width standard deviation 52.8 fl High 35.1-43.9 [facility] Estimated glomerular filtrat ion rate (GFR) AmericanOrdered By: Millie Massey on 06-25-2024 Estimated glomerular filtration rate (GFR) 25 mL/min Low >60 [facility] Glomerular filtration rate ( GFR) estimationOrdered By: Millie Massey on 06-25-2024 GFR/1.73 sq M.predicted among non-blacks MDRD (S/P/Bld) [Vol rate/Area] 21 mL/min/{1.73_m2} Low >60 [facility] Glomerular filtration rate (GFR) estimation 21 mL/min Low >60 [facility] Glucose measurementOrdered B y: Millie Massey on 06-25-2024 Glucose [Mass/Vol] 84 mg/dL 74-106 [facility] Glucose measurement 84 mg/dL 74-106 [facility] Hematocrit Auto (Bld) [Volum e fraction]Ordered By: Millie Massey on 06-25-2024 Hematocrit (Bld) [Volume fraction] 31.2 % Low 37-47 [facility] Automated blood hematocrit (percentage) 31.2 % Low 37-47 [facility] Hemoglobin measurementOrdere d By: Millie Massey on 06-25-2024 Hemoglobin (Bld) [Mass/Vol] 9.4 g/dL Low 12.0-15.0 [facility] Hemoglobin measurement 9.4 g/dL Low 12.0-15.0 [facility] Immature granulocytes/100 WB C Auto (Bld)Ordered By: Millie Massey on 06-25-2024 Immature granulocytes/100 WBC (Bld) 2.900 % High 0.0-0.9 [facility] Automated immature granulocyte percentage 2.900 % High 0.0-0.9 [facility] Lymphocytes Auto (Unsp spec) [#/Vol]Ordered By: Millie Massey on 06-25-2024 Absolute lymphocyte count 0.69 X10^3/uL Low 0.83-4.51 [facility] Lymphocytes/100 WBC Auto (Un sp spec)Ordered By: Millie Massey on 06-25-2024 Automated lymphocyte count as percentage of total leukocytes 15.6 % Low 19-41 [facility] MCV (RBC) [Entitic vol]Order ed By: Millie Massey on 06-25-2024 MCV (mean corpuscular volume) determination 89.9 fL 81-99 [facility] MCV (mean corpuscular volume ) determinationOrdered By: Millie Massey on 06-25-2024 MCV (RBC) [Entitic vol] 89.9 fL 81-99 [facility] Mean corpuscular hemoglobin (MCH) determinationOrdered By: Millie Massey on 06-25-2024 MCH (RBC) [Entitic mass] 27.1 pg 27.0-32.0 [facility] Mean corpuscular hemoglobin (MCH) determination 27.1 pg 27.0-32.0 [facility] Mean corpuscular hemoglobin concentration (MCHC) determinationOrdered By: Millie Massey on 06-25-2024 Mean corpuscular hemoglobin concentration (MCHC) determination 30.1 g/dL Low 32-36 [facility] Mean platelet volume determi nationOrdered By: Millie Massey on 06-25-2024 Mean platelet volume determination 9.4 fl 6.2-12.0 [facility] Monocyte percentageOrdered B y: Millie Massey on 06-25-2024 Monocytes/100 WBC (Bld) 13.8 % High 0-10 [facility] Monocyte percentage 13.8 % High 0-10 [facility] Neutrophil percentageOrdered By: Millie Massey on 06-25-2024 Neutrophils/100 WBC (Bld) 63.8 % 47-70 [facility] Neutrophil percentage 63.8 % 47-70 [facility] Nucleated red blood cell per centageOrdered By: Millie Massey on 06-25-2024 Nucleated red blood cell percentage 0 % 0-5 [facility] Platelet countOrdered By: Carter Massey on 06-25-2024 Platelets (Bld) [#/Vol] 142 10*3/uL Low 150-450 [facility] Platelet count 142 K/mm3 Low 150-450 [facility] Potassium measurementOrdered By: Millie Massey on 06-25-2024 Potassium [Moles/Vol] 4.6 mmol/L 3.5-5.1 [facility] Potassium measurement 4.6 mmol/L 3.5-5.1 [facility] RBC Auto (Bld) [#/Vol]Ordere d By: Millie Massey on 06-25-2024 RBC (Bld) [#/Vol] 3.47 10*6/uL Low 4.2-5.4 [facility] Automated blood erythrocyte count 3.47 M/mm3 Low 4.2-5.4 [facility] Serum anion gap measurementO rdered By: Millie Massey on 06-25-2024 Serum anion gap measurement 3 Low 5-15 [facility] Serum or plasma calcium megan urement (mass/volume)Ordered By: Millie Massey on 06-25-2024 Calcium [Mass/Vol] 8.5 mg/dL 8.5-10.1 [facility] Serum or plasma creatinine m easurement (mass/volume)Ordered By: Millie Massey on 06-25-2024 Creatinine [Mass/Vol] 2.48 mg/dL High 0.55-1.02 [facility] Serum or plasma thyroid stim ulating hormone (TSH) measurement (units/volume)Ordered By: Millie Massey on 06-25-2024 TSH Qn 0.679 uIU/mL 0.358-3.74 0 [facility] Serum or plasma urea nitroge n measurement (mass/volume)Ordered By: Millie Massey on 06-25-2024 Urea nitrogen [Mass/Vol] 39 mg/dL High - [facility] Sodium levelOrdered By: Silvana Massey on 06-25-2024 Sodium [Moles/Vol] 136 mmol/L 136-145 [facility] Sodium level 136 mmol/L 136-145 [facility] TSH QnOrdered By: Millie little on 06-25-2024 Serum or plasma thyroid stimulating hormone (TSH) measurement (units/volume) 0.679 uIU/mL 0.358-3.74 0 [facility] Thyroid Stim Hormone (TSH)on 06-25-2024 TSH 0.679 uIU/mL Normal 0.358-3.74 0 [facility] Comment on above: Order Comment: 103.1 Performed By: #### L 501.9520, L500.2500, L100.0100 ####[facility] [address] [place], [place], [id number] Urea nitrogen [Mass/Vol]Orde red By: Millie Massey on 06-25-2024 Serum or plasma urea nitrogen measurement (mass/volume) 39 mg/dL High [facility] Urine Cultureon 06-25-2024 URC Normal [facility] Comment on above: Performed By: #### M 100.2200, L400.0001 ####[facility] [address] [place], [place], [address] White blood cell (WBC) count Ordered By: Millie Massey on 06-25-2024 WBC (Bld) [#/Vol] 4.4 10*3/uL 4.4-11.0 [facility] White blood cell (WBC) count 4.4 K/mm3 4.4-11.0 [facility] Absolute lymphocyte countOrd ered By: Millie Massey on 06-24-2024 Lymphocytes Auto (Unsp spec) [#/Vol] 0.73 10*3/uL Low 0.83-4.51 [facility] Absolute neutrophil countOrd ered By: Millie Massey on 06-24-2024 Absolute neutrophil count 3.9 X10^3/uL 2.0-7.7 [facility] Automated lymphocyte count a s percentage of total leukocytesOrdered By: Millie Massey on 06-24-2024 Lymphocytes/100 WBC Auto (Unsp spec) 13.7 % Low 19-41 [facility] Basic Metabolic Profile (BMP )on 06-24-2024 BUN/CRE 16.4 RATIO Normal 10-20 [facility] Comment on above: Order Comment: 103-1 Performed By: #### L 100.0100, L500.2500 ####[facility] [address] [place], [address] CA,Total 9.1 mg/dL Normal 8.5-10.1 [facility] Comment on above: Order Comment: 103-1 Performed By: #### L 100.0100, L500.2500 ####[facility] [address] [place], [address] Chloride [Moles/Vol] 104 mmol/L Normal 98-107 [facility] Comment on above: Order Comment: 103- Performed By: #### L 100.0100, L500.2500 ####[facility] [address] [place], [address] CO2 [Moles/Vol] 27.0 mmol/L Normal 21.0-32.0 [facility] Comment on above: Order Comment: 103-1 Performed By: #### L 100.0100, L500.2500 ####[facility] [address] [place], [address] Creatinine [Mass/Vol] 2.92 mg/dL High 0.55-1.02 [facility] Comment on above: Order Comment: 103-1 Result Comment: The validity of the calculated GFR GFRAA in patients over70 years has not been determined. Clinical correlation isessential. Performed By: #### L 100.0100, L500.2500 ####[facility] [address] [place], [address] EST GFR - AA 21 mL/min Low >60 [facility] Comment on above: Order Comment: 103- Result Comment: Afri can [place] Citizen GFR Calc Performed By: #### L 100.0100, L500.2500 ####[facility] [address] [place], [address] GAP 5 Normal 5-15 [facility] Comment on above: Order Comment: 103-1 Performed By: #### L 100.0100, L500.2500 ####[facility] [address] [place], [address] GFR/1.73 sq M.predicted among non-blacks MDRD (S/P/Bld) [Vol rate/Area] 17 mL/min/{1.73_m2} Low >60 [facility] Comment on above: Order Comment: 103- Result Comment: Non- GFR Calc Performed By: #### L 100.0100, L500.2500 ####[facility] [address] [place], [address] Glucose [Mass/Vol] 71 mg/dL Low 74-106 [facility] Comment on above: Order Comment: 103-1 Performed By: #### L 100.0100, L500.2500 ####[facility] [address] [place], [address] Potassium [Moles/Vol] 5.6 mmol/L High 3.5-5.1 [facility] Comment on above: Order Comment: 103-1 Performed By: #### L 100.0100, L500.2500 ####[facility] [address] [place], [address] Sodium [Moles/Vol] 137 mmol/L Normal 136-145 [facility] Comment on above: Order Comment: 103-1 Performed By: #### L 100.0100, L500.2500 ####[facility] [address] [place], [address] Urea nitrogen [Mass/Vol] 48 mg/dL High 7-18 [facility] Comment on above: Order Comment: 103-1 Performed By: #### L 100.0100, L500.2500 ####[facility] [address] [place], [address] Basophil percentageOrdered B y: Millie Massey on 06-24-2024 Basophils/100 WBC (Bld) 1.3 % High 0-1 [facility] Basophil percentage 1.3 % High 0-1 [facility] Blood urea nitrogen (BUN)/cr eatinine ratioOrdered By: Millie Massey on 06-24-2024 Blood urea nitrogen (BUN)/creatinine ratio 16.4 RATIO 10-20 [facility] CBC W/Diff, Automatedon 05-30 Absolute Lymph 0.73 X10 3/uL Low 0.83-4.51 [facility] Comment on above: Order Comment: 103-1 Performed By: #### L 100.0100, L500.2500 ####[facility] [address] [place], [address] Absolute Neut 3.9 X10 3/uL Normal 2.0-7.7 [facility] Comment on above: Order Comment: 103-1 Performed By: #### L 100.0100, L500.2500 ####[facility] [address] [place], [address] Basophils/100 WBC (Bld) 1.3 % High 0-1 [facility] Comment on above: Order Comment: 103-1 Performed By: #### L 100.0100, L500.2500 ####[facility] [address] [place], [address] Eosinophils/100 WBC (Bld) 2.6 % Normal 0-5 [facility] Comment on above: Order Comment: 103-1 Performed By: #### L 100.0100, L500.2500 ####[facility] [address] [place], [address] Erythrocyte distribution width (RBC) [Ratio] 15.9 % High 11.6-14.6 [facility] Comment on above: Order Comment: 103-1 Performed By: #### L 100.0100, L500.2500 ####[facility] [address] [place], [address] Hematocrit (Bld) [Volume fraction] 41.4 % Normal 37-47 [facility] Comment on above: Order Comment: 103-1 Performed By: #### L 100.0100, L500.2500 ####[facility] [address] [place], [address] Hemoglobin (Bld) [Mass/Vol] 12.8 g/dL Normal 12.0-15.0 [facility] Comment on above: Order Comment: 103-1 Performed By: #### L 100.0100, L500.2500 ####[facility] [address] [place], [address] IG% 2.100 High 0.0-0.9 [facility] Comment on above: Order Comment: 103-1 Result Comment: IG% - Immature Granulocytes (promyelocytes, myelocytes andmetamyelocytes) > 1% indicates that a LEFT SHIFT is Present. Performed By: #### L 100.0100, L500.2500 ####[facility] [address] [place], [address] Lymphocytes/100 WBC (Bld) 13.7 % Low 19-41 [facility] Comment on above: Order Comment: 103-1 Performed By: #### L 100.0100, L500.2500 ####[facility] [address] [place], [address] MCH (RBC) [Entitic mass] 27.9 pg Normal 27.0-32.0 [facility] Comment on above: Order Comment: 103-1 Performed By: #### L 100.0100, L500.2500 ####[facility] [address] [place], [address] MCHC (RBC) [Mass/Vol] 30.9 g/dL Low 32-36 [facility] Comment on above: Order Comment: 103-1 Performed By: #### L 100.0100, L500.2500 ####[facility] [address] [place], [address] MCV (RBC) [Entitic vol] 90.2 fL Normal 81-99 [facility] Comment on above: Order Comment: 103-1 Performed By: #### L 100.0100, L500.2500 ####[facility] [address] [place], [address] Monocytes/100 WBC (Bld) 7.7 % Normal 0-10 [facility] Comment on above: Order Comment: 103-1 Performed By: #### L 100.0100, L500.2500 ####[facility] [address] [place], [address] Neutrophils/100 WBC (Bld) 72.6 % High 47-70 [facility] Comment on above: Order Comment: 103-1 Performed By: #### L 100.0100, L500.2500 ####[facility] [address] [place], [address] Nucleated RBC (Bld) [#/Vol] 0 10*3/uL Normal 0-5 [facility] Comment on above: Order Comment: 103-1 Performed By: #### L 100.0100, L500.2500 ####[facility] [address] [place], [address] Platelet mean volume (Bld) [Entitic vol] 10.0 fL Normal 6.2-12.0 [facility] Comment on above: Order Comment: 103-1 Performed By: #### L 100.0100, L500.2500 ####[facility] [address] [place], [address] Platelets (Bld) [#/Vol] 170 10*3/uL Normal 150-450 [facility] Comment on above: Order Comment: 103-1 Performed By: #### L 100.0100, L500.2500 ####[facility] [address] [place], [address] RBC (Bld) [#/Vol] 4.59 10*6/uL Normal 4.2-5.4 [facility] Comment on above: Order Comment: 103-1 Performed By: #### L 100.0100, L500.2500 ####[facility] [address] [place], [address] RDW SD 52.3 fl High 35.1-43.9 [facility] Comment on above: Order Comment: 103-1 Performed By: #### L 100.0100, L500.2500 ####[facility] [address] [place], [address] WBC (Bld) [#/Vol] 5.3 10*3/uL Normal 4.4-11.0 [facility] Comment on above: Order Comment: 103-1 Performed By: #### L 100.0100, L500.2500 ####[facility] [address] [place], [address] Calcium [Mass/Vol]Ordered By : Millie Massey on 06-24-2024 Serum or plasma calcium measurement (mass/volume) 9.1 mg/dL 8.5-10.1 [facility] Carbon dioxide measurementOr dered By: Millie Massey on 06-24-2024 CO2 [Moles/Vol] 27.0 mmol/L 21.0-32.0 [facility] Carbon dioxide measurement 27.0 mmol/L 21.0-32.0 [facility] Chloride measurementOrdered By: Millie Massey on 06-24-2024 Chloride [Moles/Vol] 104 mmol/L 98-107 [facility] Chloride measurement 104 mmol/L 98-107 [facility] Creatinine [Mass/Vol]Ordered By: Millie Massey on 06-24-2024 Serum or plasma creatinine measurement (mass/volume) 2.92 mg/dL High 0.55-1.02 [facility] Eosinophil percentageOrdered By: Millie Massey on 06-24-2024 Eosinophils/100 WBC (Bld) 2.6 % 0-5 [facility] Eosinophil percentage 2.6 % 0-5 [facility] Erythrocyte distribution wid th (RBC) [Ratio]Ordered By: Millie Massey on 06-24-2024 Erythrocyte distribution width ratio 15.9 % High 11.6-14.6 [facility] Erythrocyte distribution wid th ratioOrdered By: Millie Massey on 06-24-2024 Erythrocyte distribution width (RBC) [Ratio] 15.9 % High 11.6-14.6 [facility] Erythrocyte distribution wid th standard deviationOrdered By: Millie Massey on 06-24-2024 Erythrocyte distribution width (RBC) [Ratio] 52.3 fl High 35.1-43.9 [facility] Erythrocyte distribution width standard deviation 52.3 fl High 35.1-43.9 [facility] Estimated glomerular filtrat ion rate (GFR) AmericanOrdered By: Millie Massey on 06-24-2024 Estimated glomerular filtration rate (GFR) 21 mL/min Low >60 [facility] Glomerular filtration rate ( GFR) estimationOrdered By: Millie Massey on 06-24-2024 GFR/1.73 sq M.predicted among non-blacks MDRD (S/P/Bld) [Vol rate/Area] 17 mL/min/{1.73_m2} Low >60 [facility] Glomerular filtration rate (GFR) estimation 17 mL/min Low >60 [facility] Glucose measurementOrdered B y: Millie Massey on 06-24-2024 Glucose [Mass/Vol] 71 mg/dL Low 74-106 [facility] Glucose measurement 71 mg/dL Low 74-106 [facility] Hematocrit Auto (Bld) [Volum e fraction]Ordered By: Millie Massey on 06-24-2024 Hematocrit (Bld) [Volume fraction] 41.4 % 37-47 [facility] Automated blood hematocrit (percentage) 41.4 % 37-47 [facility] Hemoglobin measurementOrdere d By: Millie Massey on 06-24-2024 Hemoglobin (Bld) [Mass/Vol] 12.8 g/dL 12.0-15.0 [facility] Hemoglobin measurement 12.8 g/dL 12.0-15.0 [facility] Immature granulocytes/100 WB C Auto (Bld)Ordered By: Millie Massey on 06-24-2024 Immature granulocytes/100 WBC (Bld) 2.100 % High 0.0-0.9 [facility] Automated immature granulocyte percentage 2.100 % High 0.0-0.9 [facility] Lymphocytes Auto (Unsp spec) [#/Vol]Ordered By: Millie Massey on 06-24-2024 Absolute lymphocyte count 0.73 X10^3/uL Low 0.83-4.51 [facility] Lymphocytes/100 WBC Auto (Un sp spec)Ordered By: Millie Massey on 06-24-2024 Automated lymphocyte count as percentage of total leukocytes 13.7 % Low 19-41 [facility] MCV (RBC) [Entitic vol]Order ed By: Millie Massey on 06-24-2024 MCV (mean corpuscular volume) determination 90.2 fL 81-99 [facility] MCV (mean corpuscular volume ) determinationOrdered By: Millie Massey on 06-24-2024 MCV (RBC) [Entitic vol] 90.2 fL 81-99 [facility] Mean corpuscular hemoglobin (MCH) determinationOrdered By: Millie Massey on 06-24-2024 MCH (RBC) [Entitic mass] 27.9 pg 27.0-32.0 [facility] Mean corpuscular hemoglobin (MCH) determination 27.9 pg 27.0-32.0 [facility] Mean corpuscular hemoglobin concentration (MCHC) determinationOrdered By: Millie Massey on 06-24-2024 Mean corpuscular hemoglobin concentration (MCHC) determination 30.9 g/dL Low 32-36 [facility] Mean platelet volume determi nationOrdered By: Millie Massey on 06-24-2024 Mean platelet volume determination 10.0 fl 6.2-12.0 [facility] Monocyte percentageOrdered B y: Millie Massey on 06-24-2024 Monocytes/100 WBC (Bld) 7.7 % 0-10 [facility] Monocyte percentage 7.7 % 0-10 [facility] Neutrophil percentageOrdered By: Millie Massey on 06-24-2024 Neutrophils/100 WBC (Bld) 72.6 % High 47-70 [facility] Neutrophil percentage 72.6 % High 47-70 [facility] Nucleated red blood cell per centageOrdered By: Millie Massey on 06-24-2024 Nucleated red blood cell percentage 0 % 0-5 [facility] Platelet countOrdered By: Carter Massey on 06-24-2024 Platelets (Bld) [#/Vol] 170 10*3/uL 150-450 [facility] Platelet count 170 K/mm3 150-450 [facility] Potassium measurementOrdered By: Millie Massey on 06-24-2024 Potassium [Moles/Vol] 5.6 mmol/L High 3.5-5.1 [facility] Potassium measurement 5.6 mmol/L High 3.5-5.1 [facility] RBC Auto (Bld) [#/Vol]Ordere d By: Millie Massey on 06-24-2024 RBC (Bld) [#/Vol] 4.59 10*6/uL 4.2-5.4 [facility] Automated blood erythrocyte count 4.59 M/mm3 4.2-5.4 [facility] Serum anion gap measurementO rdered By: Millie Massey on 06-24-2024 Serum anion gap measurement 5 5-15 [facility] Serum or plasma calcium megan urement (mass/volume)Ordered By: Millie Massey on 06-24-2024 Calcium [Mass/Vol] 9.1 mg/dL 8.5-10.1 [facility] Serum or plasma creatinine m easurement (mass/volume)Ordered By: Millie Massey on 06-24-2024 Creatinine [Mass/Vol] 2.92 mg/dL High 0.55-1.02 [facility] Serum or plasma urea nitroge n measurement (mass/volume)Ordered By: Millie Massey on 06-24-2024 Urea nitrogen [Mass/Vol] 48 mg/dL High 7-18 [facility] Sodium levelOrdered By: Silvana Massey on 06-24-2024 Sodium [Moles/Vol] 137 mmol/L 136-145 [facility] Sodium level 137 mmol/L 136-145 [facility] Urea nitrogen [Mass/Vol]Orde red By: Millie Massey on 06-24-2024 Serum or plasma urea nitrogen measurement (mass/volume) 48 mg/dL High -18 [facility] White blood cell (WBC) count Ordered By: Millie Massey on 06-24-2024 WBC (Bld) [#/Vol] 5.3 10*3/uL 4.4-11.0 [facility] White blood cell (WBC) count 5.3 K/mm3 4.4-11.0 [facility] Urinalysis, Completeon 06-22 BACTERIA 4+ /hpf Normal None Seen [facility] Comment on above: Order Comment: Urine , Random Performed By: #### M 100.2200, L400.0001 ####[facility] [address] [place], [address] CA OX CRYSTAL 1+ /hpf Normal [facility] Comment on above: Order Comment: Urine , Random Performed By: #### M 100.2200, L400.0001 ####[facility] [address] [place], [address] EPI,SQUAMOUS 0-5 SEEN Normal 5-10 [facility] Comment on above: Order Comment: Urine , Random Performed By: #### M 100.2200, L400.0001 ####[facility] [address] [place], [address] WBC >100 SEEN Normal 0-5 [facility] Comment on above: Order Comment: Urine , Random Performed By: #### M 100.2200, L400.0001 ####[facility] [address] [place], [address] Mucus Ql (Urine sed) 0 SEEN Normal [facility] Comment on above: Order Comment: Urine , Random Performed By: #### M 100.2200, L400.0001 ####[facility] [address] [place], [address] RBC 0 SEEN Normal 0-5 [facility] Comment on above: Order Comment: Urine , Random Performed By: #### M 100.2200, L400.0001 ####[facility] [address] [place], [address] Bacteria LM.HPF (Urine sed) [#/Area]Ordered By: Millie Massey on 06-21-2024 Urine sediment bacteria count by microscopy (number/high power field) 4+ /hpf None Seen [facility] Bilirubin Test strip Ql (U)O rdered By: Millie Massey on 06-21-2024 Bilirubin Ql (U) Negative Negative [facility] Calcium oxalate crystals LM Ql (Urine sed)Ordered By: Millie Massey on 06-21-2024 Calcium oxalate crystals detection in urine sediment by light microscopy 1+ /hpf [facility] Calcium oxalate crystals det ection in urine sediment by light microscopyOrdered By: Millie Massey on 06-21-2024 Calcium oxalate crystals LM Ql (Urine sed) 1+ /hpf [facility] Clarity (U)Ordered By: Krystle Massey on 06-21-2024 Urine clarity Turbid Clear [facility] Color (U)Ordered By: Millie Massey on 06-21-2024 Urine color determination Yellow Yellow [facility] Epithelial cells.squamous LM Ql (Urine sed)Ordered By: Millie Massey on 06-21-2024 Squamous epithelial cells detection in urine sediment by light microscopy 0-5 SEEN /hpf 5-10 [facility] Ketones Test strip Ql (U)Ord ered By: Millie Massey on 06-21-2024 Ketones Ql (U) Negative Negative [facility] Leukocyte esterase Test stri p Ql (U)Ordered By: Millie Massey on 06-21-2024 Urine leukocyte esterase detection by dipstick 500 /ul High Negative [facility] Microscopic analysis of urin e for red blood cells (RBC)Ordered By: Millie Massey on 06-21-2024 Microscopic analysis of urine for red blood cells (RBC) 0 SEEN /hpf [facility] Mucus LM Ql (Urine sed)Order ed By: Millie Massey on 06-21-2024 Mucus Ql (Urine sed) 0 SEEN /hpf [facility] Nitrite Test strip Ql (U)Ord ered By: Millie Massey on 06-21-2024 Nitrite Ql (U) Negative Negative [facility] Protein Test strip Ql (U)Ord ered By: Millie Massey on 06-21-2024 Protein Ql (U) 100 mg/dl High Negative [facility] Urine protein assay by test strip, semi-quantitative 100 mg/dl High Negative [facility] Specific gravity (U) [Rel de nsity]Ordered By: Millie Massey on 06-21-2024 Urine specific gravity measurement 1.010 1.002-1.03 0 [facility] Squamous epithelial cells de tection in urine sediment by light microscopyOrdered By: Millie Massey on 06-21-2024 Epithelial cells.squamous LM Ql (Urine sed) 0-5 SEEN /hpf 5-10 [facility] Urine blood detectionOrdered By: Millie Massey on 06-21-2024 Urine blood detection 50 /ul High Negative [facility] Urine clarityOrdered By: Lesli Massey on 06-21-2024 Clarity (U) Turbid Clear [facility] Urine color determinationOrd ered By: Millie Massey on 06-21-2024 Color (U) Yellow Yellow [facility] Urine cultureOrdered By: Lesli Massey on 06-21-2024 Bacteria identified Cx Nom (U) Klebsiella oxytoca Abnormal [facility] Bacteria identified Cx Nom (U) Serratia ficaria Abnormal [facility] Urine culture Klebsiella oxytoca Abnormal [facility] Urine culture Serratia ficaria Abnormal [facility] Urine glucose detectionOrder ed By: Millie Massey on 06-21-2024 Glucose Ql (U) Normal mg/dl Normal [facility] Urine glucose detection Normal mg/dl Normal [facility] Urine leukocyte esterase det ection by dipstickOrdered By: Millie Massey on 06-21-2024 Leukocyte esterase Test strip Ql (U) 500 /ul High Negative [facility] Urine pHOrdered By: Millie roman on 06-21-2024 pH (U) 8.0 [pH] 5.0 - 8.0 [facility] Urine sediment bacteria coun t by microscopy (number/high power field)Ordered By: Millie Massey on 06-21-2024 Bacteria LM.HPF (Urine sed) [#/Area] 4 /[HPF] None Seen [facility] Urine specific gravity measu rementOrdered By: Millie Massey on 06-21-2024 Specific gravity (U) [Rel density] 1.010 1.002-1.03 0 [facility] Urine total bilirubin detect ion by test stripOrdered By: Millie Massey on 06-21-2024 Urine total bilirubin detection by test strip Negative Negative [facility] Urine urobilinogen measureme ntOrdered By: Millie Massey on 06-21-2024 Urobilinogen Ql (U) Normal mg/dl Normal [facility] White blood cell countOrdere d By: Millie Massey on 06-21-2024 White blood cell count >100 SEEN /hpf 0-5 [facility] White blood cell count >100 SEEN /hpf 0-5 [facility] pH (U)Ordered By: Millie little on 06-21-2024 Urine pH 8.0 5.0 - 8.0 [facility] Basic Metabolic Profile (BMP )on 06-07-2024 BUN/CRE 12.1 RATIO Normal - [facility] Comment on above: Order Comment: 103-1 Performed By: #### L 500.2500 ####[facility] [address] [place], [place], [id number] CA,Total 8.6 mg/dL Normal 8.5-10.1 [facility] Comment on above: Order Comment: 103-1 Performed By: #### L 500.2500 ####[facility] [address] [place], [address] Chloride [Moles/Vol] 107 mmol/L Normal 98-107 [facility] Comment on above: Order Comment: 103-1 Performed By: #### L 500.2500 ####[facility] [address] [place], [address] CO2 [Moles/Vol] 22.0 mmol/L Normal 21.0-32.0 [facility] Comment on above: Order Comment: 103-1 Performed By: #### L 500.2500 ####[facility] [address] [place], [address] Creatinine [Mass/Vol] 2.65 mg/dL High 0.55-1.02 [facility] Comment on above: Order Comment: 103- Result Comment: The validity of the calculated GFR GFRAA in patients over70 years has not been determined. Clinical correlation isessential. Performed By: #### L 500.2500 ####[facility] [address] [place], [address] EST GFR - AA 24 mL/min Low >60 [facility] Comment on above: Order Comment: 103- Result Comment: Afri can [place] Citizen GFR Calc Performed By: #### L 500.2500 ####[facility] [address] [place], [address] GAP 6 Normal 5-15 [facility] Comment on above: Order Comment: 103-1 Performed By: #### L 500.2500 ####[facility] [address] [place], [address] GFR/1.73 sq M.predicted among non-blacks MDRD (S/P/Bld) [Vol rate/Area] 19 mL/min/{1.73_m2} Low >60 [facility] Comment on above: Order Comment: 103- Result Comment: Non- GFR Calc Performed By: #### L 500.2500 ####[facility] [address] [place], [address] Glucose [Mass/Vol] 77 mg/dL Normal 74-106 [facility] Comment on above: Order Comment: - Performed By: #### L 500.2500 ####[facility] [address] [place], [address] Potassium [Moles/Vol] 5.3 mmol/L High 3.5-5.1 [facility] Comment on above: Order Comment: Result Comment: Mode rate Hemolysis, Result may be falsely increased. Performed By: #### L 500.2500 ####[facility] [address] [place], [address] Sodium [Moles/Vol] 134 mmol/L Low 136-145 [facility] Comment on above: Order Comment: - Performed By: #### L 500.2500 ####[facility] [address] [place], [address] Urea nitrogen [Mass/Vol] 32 mg/dL High 7-18 [facility] Comment on above: Order Comment: - Performed By: #### L 500.2500 ####[facility] [address] [place], [address] Blood urea nitrogen (BUN)/cr eatinine ratioOrdered By: Millie Massey on 06-07-2024 Blood urea nitrogen (BUN)/creatinine ratio 12.1 RATIO 10-20 [facility] Calcium [Mass/Vol]Ordered By : Millie Massey on 06-07-2024 Serum or plasma calcium measurement (mass/volume) 8.6 mg/dL 8.5-10.1 [facility] Carbon dioxide measurementOr dered By: Millie Massey on 06-07-2024 Carbon dioxide measurement 22.0 mmol/L 21.0-32.0 [facility] Chloride measurementOrdered By: Millie Massey on 06-07-2024 Chloride measurement 107 mmol/L 98-107 [facility] Creatinine [Mass/Vol]Ordered By: Millie Massey on 06-07-2024 Serum or plasma creatinine measurement (mass/volume) 2.65 mg/dL High 0.55-1.02 [facility] Estimated glomerular filtrat ion rate (GFR) AmericanOrdered By: Millie Massey on 06-07-2024 Estimated glomerular filtration rate (GFR) 24 mL/min Low >60 [facility] Glomerular filtration rate ( GFR) estimationOrdered By: Millie Massey on 06-07-2024 Glomerular filtration rate (GFR) estimation 19 mL/min Low >60 [facility] Glucose measurementOrdered B y: Millie Massey on 06-07-2024 Glucose measurement 77 mg/dL 74-106 [facility] Potassium measurementOrdered By: Millie Massey on 06-07-2024 Potassium measurement 5.3 mmol/L High 3.5-5.1 [facility] Serum anion gap measurementO rdered By: Millie Massey on 06-07-2024 Serum anion gap measurement 6 5-15 [facility] Sodium levelOrdered By: Silvana Massey on 06-07-2024 Sodium level 134 mmol/L Low 136-145 [facility] Urea nitrogen [Mass/Vol]Orde red By: Millie Massey on 06-07-2024 Serum or plasma urea nitrogen measurement (mass/volume) 32 mg/dL High 7-18 [facility] Basic Metabolic Profile (BMP )on 06-06-2024 BUN/CRE 11.9 RATIO Normal 10-20 [facility] Comment on above: Performed By: #### L 500.2500 ####[facility] [address] [place], [address] CA,Total 8.5 mg/dL Normal 8.5-10.1 [facility] Comment on above: Performed By: #### L 500.2500 ####[facility] [address] [place], [address] Chloride [Moles/Vol] 104 mmol/L Normal 98-107 [facility] Comment on above: Performed By: #### L 500.2500 ####[facility] [address] [place], [address] CO2 [Moles/Vol] 25.0 mmol/L Normal 21.0-32.0 [facility] Comment on above: Performed By: #### L 500.2500 ####[facility] [address] [place], [address] Creatinine [Mass/Vol] 2.53 mg/dL High 0.55-1.02 [facility] Comment on above: Result Comment: The validity of the calculated GFR GFRAA in patients over70 years has not been determined. Clinical correlation isessential. Performed By: #### L 500.2500 ####[facility] [address] [place], [address] EST GFR - AA 25 mL/min Low >60 [facility] Comment on above: Result Comment: Afri can [place] Citizen GFR Calc Performed By: #### L 500.2500 ####[facility] [address] [place], [address] GAP 5 Normal 5-15 [facility] Comment on above: Performed By: #### L 500.2500 ####[facility] [address] [place], [address] GFR/1.73 sq M.predicted among non-blacks MDRD (S/P/Bld) [Vol rate/Area] 21 mL/min/{1.73_m2} Low >60 [facility] Comment on above: Result Comment: Non- GFR Calc Performed By: #### L 500.2500 ####[facility] [address] [place], [address] Glucose [Mass/Vol] 79 mg/dL Normal 74-106 [facility] Comment on above: Performed By: #### L 500.2500 ####[facility] [address] [place], [address] Potassium [Moles/Vol] 5.0 mmol/L Normal 3.5-5.1 [facility] Comment on above: Performed By: #### L 500.2500 ####[facility] [address] [place], [address] Sodium [Moles/Vol] 134 mmol/L Low 136-145 [facility] Comment on above: Performed By: #### L 500.2500 ####[facility] [address] [place], [address] Urea nitrogen [Mass/Vol] 30 mg/dL High 7-18 [facility] Comment on above: Performed By: #### L 500.2500 ####[facility] [address] [place], [address] Blood urea nitrogen (BUN)/cr eatinine ratioOrdered By: Millie Massey on 06-06-2024 Blood urea nitrogen (BUN)/creatinine ratio 11.9 RATIO 10-20 [facility] Calcium [Mass/Vol]Ordered By : Millie Massey on 06-06-2024 Serum or plasma calcium measurement (mass/volume) 8.5 mg/dL 8.5-10.1 [facility] Carbon dioxide measurementOr dered By: Millie Massey on 06-06-2024 Carbon dioxide measurement 25.0 mmol/L 21.0-32.0 [facility] Chloride measurementOrdered By: Millie Massey on 06-06-2024 Chloride measurement 104 mmol/L 98-107 [facility] Creatinine [Mass/Vol]Ordered By: Millie Massey on 06-06-2024 Serum or plasma creatinine measurement (mass/volume) 2.53 mg/dL High 0.55-1.02 [facility] Estimated glomerular filtrat ion rate (GFR) AmericanOrdered By: Millie Massey on 06-06-2024 Estimated glomerular filtration rate (GFR) 25 mL/min Low >60 [facility] Glomerular filtration rate ( GFR) estimationOrdered By: Millie Massey on 06-06-2024 Glomerular filtration rate (GFR) estimation 21 mL/min Low >60 [facility] Glucose measurementOrdered B y: Millie Massey on 06-06-2024 Glucose measurement 79 mg/dL 74-106 [facility] Potassium measurementOrdered By: Millie Massey on 06-06-2024 Potassium measurement 5.0 mmol/L 3.5-5.1 [facility] Serum anion gap measurementO rdered By: Millie Massey on 06-06-2024 Serum anion gap measurement 5 5-15 [facility] Sodium levelOrdered By: Silvana Massey on 06-06-2024 Sodium level 134 mmol/L Low 136-145 [facility] Urea nitrogen [Mass/Vol]Orde red By: Millie Massey on 06-06-2024 Serum or plasma urea nitrogen measurement (mass/volume) 30 mg/dL High 7-18 [facility] MR/BMS.BVSon 06-05-2024 MR/BMS.BVS Normal [facility] Absolute neutrophil countOrd ered By: Millie Massey on 06-03-2024 Absolute neutrophil count 4.5 X10^3/uL 2.0-7.7 [facility] Basic Metabolic Profile (BMP )on 06-03-2024 BUN/CRE 14.6 RATIO Normal 10-20 [facility] Comment on above: Order Comment: 103.1 Performed By: #### L 100.0100, L500.2500, L501.6710 ####[facility] [address] [place], [address] CA,Total 8.7 mg/dL Normal 8.5-10.1 [facility] Comment on above: Order Comment: 103.1 Performed By: #### L 100.0100, L500.2500, L501.6710 ####[facility] [address] [place], [address] Chloride [Moles/Vol] 102 mmol/L Normal 98-107 [facility] Comment on above: Order Comment: 103.1 Performed By: #### L 100.0100, L500.2500, L501.6710 ####[facility] [address] [place], [address] CO2 [Moles/Vol] 24.0 mmol/L Normal 21.0-32.0 [facility] Comment on above: Order Comment: 103.1 Performed By: #### L 100.0100, L500.2500, L501.6710 ####[facility] [address] [place], [address] Creatinine [Mass/Vol] 2.40 mg/dL High 0.55-1.02 [facility] Comment on above: Order Comment: 103.1 Result Comment: The validity of the calculated GFR GFRAA in patients over70 years has not been determined. Clinical correlation isessential. Performed By: #### L 100.0100, L500.2500, L501.6710 ####[facility] [address] [place], [address] EST GFR - AA 26 mL/min Low >60 [facility] Comment on above: Order Comment: 103.1 Result Comment: Afri can [place] Citizen GFR Calc Performed By: #### L 100.0100, L500.2500, L501.6710 ####[facility] [address] [place], [address] GAP 6 Normal 5-15 [facility] Comment on above: Order Comment: 103.1 Performed By: #### L 100.0100, L500.2500, L501.6710 ####[facility] [address] [place], [address] GFR/1.73 sq M.predicted among non-blacks MDRD (S/P/Bld) [Vol rate/Area] 22 mL/min/{1.73_m2} Low >60 [facility] Comment on above: Order Comment: 103.1 Result Comment: Non- GFR Calc Performed By: #### L 100.0100, L500.2500, L501.6710 ####[facility] [address] [place], [address] Glucose [Mass/Vol] 87 mg/dL Normal 74-106 [facility] Comment on above: Order Comment: 103.1 Performed By: #### L 100.0100, L500.2500, L501.6710 ####[facility] [address] [place], [address] Potassium [Moles/Vol] 5.3 mmol/L High 3.5-5.1 [facility] Comment on above: Order Comment: 103.1 Performed By: #### L 100.0100, L500.2500, L501.6710 ####[facility] [address] [place], [address] Sodium [Moles/Vol] 132 mmol/L Low 136-145 [facility] Comment on above: Order Comment: 103.1 Performed By: #### L 100.0100, L500.2500, L501.6710 ####[facility] [address] [place], [address] Urea nitrogen [Mass/Vol] 35 mg/dL High 7-18 [facility] Comment on above: Order Comment: 103.1 Performed By: #### L 100.0100, L500.2500, L501.6710 ####[facility] [address] [place], [address] Blood urea nitrogen (BUN)/cr eatinine ratioOrdered By: Millie Massey on 06-03-2024 Blood urea nitrogen (BUN)/creatinine ratio 14.6 RATIO 10-20 [facility] C-reactive protein measureme nt by high sensitivity methodOrdered By: Millie Massey on 06-03-2024 C-reactive protein measurement by high sensitivity method 15.60 mg/L High 0.0-3.0 [facility] CBC W/Diff, Automatedon 01-0 6-2024 Absolute Lymph 0.75 X10 3/uL Low 0.83-4.51 [facility] Comment on above: Order Comment: 103.1 Performed By: #### L 100.0100, L500.2500, L501.6710 ####[facility] [address] [place], [address] Absolute Neut 4.5 X10 3/uL Normal 2.0-7.7 [facility] Comment on above: Order Comment: 103.1 Performed By: #### L 100.0100, L500.2500, L501.6710 ####[facility] [address] [place], [address] Basophils/100 WBC (Bld) 1.0 % Normal 0-1 [facility] Comment on above: Order Comment: 103.1 Performed By: #### L 100.0100, L500.2500, L501.6710 ####[facility] [address] [place], [address] Eosinophils/100 WBC (Bld) 1.0 % Normal 0-5 [facility] Comment on above: Order Comment: 103.1 Performed By: #### L 100.0100, L500.2500, L501.6710 ####[facility] [address] [place], [address] Erythrocyte distribution width (RBC) [Ratio] 15.7 % High 11.6-14.6 [facility] Comment on above: Order Comment: 103.1 Performed By: #### L 100.0100, L500.2500, L501.6710 ####[facility] [address] [place], [address] Hematocrit (Bld) [Volume fraction] 38.9 % Normal 37-47 [facility] Comment on above: Order Comment: 103.1 Performed By: #### L 100.0100, L500.2500, L501.6710 ####[facility] [address] [place], [address] Hemoglobin (Bld) [Mass/Vol] 11.8 g/dL Low 12.0-15.0 [facility] Comment on above: Order Comment: 103.1 Performed By: #### L 100.0100, L500.2500, L501.6710 ####[facility] [address] [place], [address] IG% 0.800 Normal 0.0-0.9 [facility] Comment on above: Order Comment: 103.1 Result Comment: IG% - Immature Granulocytes (promyelocytes, myelocytes andmetamyelocytes) > 1% indicates that a LEFT SHIFT is Present. Performed By: #### L 100.0100, L500.2500, L501.6710 ####[facility] [address] [place], [address] Lymphocytes/100 WBC (Bld) 12.4 % Low 19-41 [facility] Comment on above: Order Comment: 103.1 Performed By: #### L 100.0100, L500.2500, L501.6710 ####[facility] [address] [place], [address] MCH (RBC) [Entitic mass] 28.4 pg Normal 27.0-32.0 [facility] Comment on above: Order Comment: 103.1 Performed By: #### L 100.0100, L500.2500, L501.6710 ####[facility] [address] [place], [address] MCHC (RBC) [Mass/Vol] 30.3 g/dL Low 32-36 [facility] Comment on above: Order Comment: 103.1 Performed By: #### L 100.0100, L500.2500, L501.6710 ####[facility] [address] [place], [address] MCV (RBC) [Entitic vol] 93.5 fL Normal 81-99 [facility] Comment on above: Order Comment: 103.1 Performed By: #### L 100.0100, L500.2500, L501.6710 ####[facility] [address] [place], [address] Monocytes/100 WBC (Bld) 9.9 % Normal 0-10 [facility] Comment on above: Order Comment: 103.1 Performed By: #### L 100.0100, L500.2500, L501.6710 ####[facility] [address] [place], [address] Neutrophils/100 WBC (Bld) 74.9 % High 47-70 [facility] Comment on above: Order Comment: 103.1 Performed By: #### L 100.0100, L500.2500, L501.6710 ####[facility] [address] [place], [address] Nucleated RBC (Bld) [#/Vol] 0 10*3/uL Normal 0-5 [facility] Comment on above: Order Comment: 103.1 Performed By: #### L 100.0100, L500.2500, L501.6710 ####[facility] [address] [place], [address] Platelet mean volume (Bld) [Entitic vol] 9.9 fL Normal 6.2-12.0 [facility] Comment on above: Order Comment: 103.1 Performed By: #### L 100.0100, L500.2500, L501.6710 ####[facility] [address] [place], [address] Platelets (Bld) [#/Vol] 196 10*3/uL Normal 150-450 [facility] Comment on above: Order Comment: 103.1 Performed By: #### L 100.0100, L500.2500, L501.6710 ####[facility] [address] [place], [address] RBC (Bld) [#/Vol] 4.16 10*6/uL Low 4.2-5.4 [facility] Comment on above: Order Comment: 103.1 Performed By: #### L 100.0100, L500.2500, L501.6710 ####[facility] [address] [place], [address] RDW SD 54.4 fl High 35.1-43.9 [facility] Comment on above: Order Comment: 103.1 Performed By: #### L 100.0100, L500.2500, L501.6710 ####[facility] [address] [place], [address] WBC (Bld) [#/Vol] 6.1 10*3/uL Normal 4.4-11.0 [facility] Comment on above: Order Comment: 103.1 Performed By: #### L 100.0100, L500.2500, L501.6710 ####[facility] [address] [place], [address] CRPon 06-03-2024 C-REACTIVE PROT 15.60 mg/L High 0.0-3.0 [facility] Comment on above: Order Comment: 103.1 Result Comment: C-Re active Protein (CRP) provides useful information for thediagnosis, therapy and monitoring of inflammatory processesand associated diseases. For the evaluation of Relative Riskfor Cardiovascular Disease, a High Sensitivity CRP (HSCRP)should be ordered. Performed By: #### L 100.0100, L500.2500, L501.6710 ####[facility] [address] [place], [address] Calcium [Mass/Vol]Ordered By : Millie Massey on 06-03-2024 Serum or plasma calcium measurement (mass/volume) 8.7 mg/dL 8.5-10.1 [facility] Carbon dioxide measurementOr dered By: Millie Massey on 06-03-2024 Carbon dioxide measurement 24.0 mmol/L 21.0-32.0 [facility] Chloride measurementOrdered By: Millie Massey on 06-03-2024 Chloride measurement 102 mmol/L 98-107 [facility] Creatinine [Mass/Vol]Ordered By: Millie Massey on 06-03-2024 Serum or plasma creatinine measurement (mass/volume) 2.40 mg/dL High 0.55-1.02 [facility] Eosinophil percentageOrdered By: Millie Massey on 06-03-2024 Eosinophil percentage 1.0 % 0-1 [facility] Erythrocyte distribution wid th (RBC) [Ratio]Ordered By: Millie Massey on 06-03-2024 Erythrocyte distribution width ratio 15.7 % High 11.6-14.6 [facility] Erythrocyte distribution wid th standard deviationOrdered By: Millie Massey on 06-03-2024 Erythrocyte distribution width standard deviation 54.4 fl High 35.1-43.9 [facility] Estimated glomerular filtrat ion rate (GFR) AmericanOrdered By: Millie Massey on 06-03-2024 Estimated glomerular filtration rate (GFR) 26 mL/min Low >60 [facility] Glomerular filtration rate ( GFR) estimationOrdered By: Millie Massey on 06-03-2024 Glomerular filtration rate (GFR) estimation 22 mL/min Low >60 [facility] Glucose measurementOrdered B y: Millie Massey on 06-03-2024 Glucose measurement 87 mg/dL 74-106 [facility] Hematocrit Auto (Bld) [Volum e fraction]Ordered By: Millie Massey on 06-03-2024 Automated blood hematocrit (percentage) 38.9 % 37-47 [facility] Hemoglobin measurementOrdere d By: Millie Massey on 06-03-2024 Hemoglobin measurement 11.8 g/dL Low 12.0-15.0 [facility] Immature granulocytes/100 WB C Auto (Bld)Ordered By: Millie Massey on 06-03-2024 Automated immature granulocyte percentage 0.800 % 0.0-0.9 [facility] Lymphocytes Auto (Unsp spec) [#/Vol]Ordered By: Millie Massey on 06-03-2024 Absolute lymphocyte count 0.75 X10^3/uL Low 0.83-4.51 [facility] Lymphocytes/100 WBC Auto (Un sp spec)Ordered By: Millie Massey on 06-03-2024 Automated lymphocyte count as percentage of total leukocytes 12.4 % Low 19-41 [facility] MCV (RBC) [Entitic vol]Order ed By: Millie Massey on 06-03-2024 MCV (mean corpuscular volume) determination 93.5 fL 81-99 [facility] Mean corpuscular hemoglobin (MCH) determinationOrdered By: Millie Massey on 06-03-2024 Mean corpuscular hemoglobin (MCH) determination 28.4 pg 27.0-32.0 [facility] Mean corpuscular hemoglobin concentration (MCHC) determinationOrdered By: Millie Massey on 06-03-2024 Mean corpuscular hemoglobin concentration (MCHC) determination 30.3 g/dL Low 32-36 [facility] Mean platelet volume determi nationOrdered By: Millie Massey on 06-03-2024 Mean platelet volume determination 9.9 fl 6.2-12.0 [facility] Monocyte percentageOrdered B y: Millie Massey on 06-03-2024 Monocyte percentage 9.9 % 0-10 [facility] Neutrophil percentageOrdered By: Millie Massey on 06-03-2024 Neutrophil percentage 74.9 % High 47-70 [facility] Nucleated red blood cell per centageOrdered By: Millie Massey on 06-03-2024 Nucleated red blood cell percentage 0 % 0-5 [facility] Platelet countOrdered By: Carter Massey on 06-03-2024 Platelet count 196 K/mm3 150-450 [facility] Potassium measurementOrdered By: Millie Massey on 06-03-2024 Potassium measurement 5.3 mmol/L High 3.5-5.1 [facility] RBC Auto (Bld) [#/Vol]Ordere d By: Millie Massey on 06-03-2024 Automated blood erythrocyte count 4.16 M/mm3 Low 4.2-5.4 [facility] Serum anion gap measurementO rdered By: Millie Massey on 06-03-2024 Serum anion gap measurement 6 5-15 [facility] Sodium levelOrdered By: Silvana Massey on 06-03-2024 Sodium level 132 mmol/L Low 136-145 [facility] Urea nitrogen [Mass/Vol]Orde red By: Millie Massey on 06-03-2024 Serum or plasma urea nitrogen measurement (mass/volume) 35 mg/dL High 7-18 [facility] White blood cell (WBC) count Ordered By: Millie Massey on 06-03-2024 White blood cell (WBC) count 6.1 K/mm3 4.4-11.0 [facility] Miscellaneous Lab Procedureo n 05-30-2024 [facility] LAB TEST Normal [facility] Comment on above: Order Comment: [id number] Result Comment: TEST RESULTS LIMITSHemoglobin A1c <4.2 Low % 4.8-5.6 Verified by repeat analysis Please Note: Prediabetes: 5.7 - 6.4 Diabetes: >6.4 Glycemic control for adults with diabetes: <7.0 TESTING PERFORMED AT [facility]. ORIGINAL REPORT ON FILE IN LAB CONTAINS ADDITIONAL TEST SITE INFORMATION. Performed By: #### L 801.1541 ####[facility] [address] [place], [address] Prealbumin [id number] Prealbumin [Mass/Vol] 10 mg/dL Normal 10-36 [facility] Comment on above: Order Comment: 103.1 Result Comment: Perf ormed at: [facility] [place], [place] [id number] Director: Manjinder Babb PhD, Phone: [phone] Performed By: #### L 421.5226, W960.73809, E463.9702, L3753.5885, L5004050, L100.0100, L566.4208 ####[facility] [address] [place], [address] ALP [Catalytic activity/Vol] Ordered By: Millie Massey on 05-27-2024 Serum or plasma alkaline phosphatase measurement 65 U/L 45-117 [facility] ALT [Catalytic activity/Vol] Ordered By: Millie Massey on 05-27-2024 Serum or plasma alanine aminotransferase (ALT) measurement 10 U/L Low 13-56 [facility] Absolute neutrophil countOrd ered By: Millie Massey on 05-27-2024 Absolute neutrophil count 3.6 X10^3/uL 2.0-7.7 [facility] Albumin [Mass/Vol]Ordered By : Millie Massey on 05-27-2024 Serum or plasma albumin measurement (mass/volume) 1.8 g/dL Low 3.2-5.0 [facility] Albumin to globulin ratioOrd ered By: Millie Massey on 05-27-2024 Albumin to globulin ratio 0.4 RATIO Low 0.9-2.4 [facility] Basophil percentageOrdered B y: Millie Massey on 05-27-2024 Basophil percentage 0.8 % 0-1 [facility] Bilirubin, totalOrdered By: Millie Massey on 05-27-2024 Bilirubin, total 0.40 mg/dL 0.20-1.00 [facility] Blood urea nitrogen (BUN)/cr eatinine ratioOrdered By: Millie Massey on 05-27-2024 Blood urea nitrogen (BUN)/creatinine ratio 15.6 RATIO 10-20 [facility] CBC W/Diff, Automatedon 04-30 Absolute Lymph 0.62 X10 3/uL Low 0.83-4.51 [facility] Comment on above: Order Comment: 103.1 Performed By: #### L 501.9520, L501.44071, L501.5200, L3300.6400, L500.4050, L100.0100, L501.9310 ####[facility] [address] [place], [address] Absolute Neut 3.6 X10 3/uL Normal 2.0-7.7 [facility] Comment on above: Order Comment: 103.1 Performed By: #### L 501.9520, L501.39270, L501.5200, L3300.6400, L500.4050, L100.0100, L501.9310 ####[facility] [address] [place], [address] Basophils/100 WBC (Bld) 0.8 % Normal 0-1 [facility] Comment on above: Order Comment: 103.1 Performed By: #### L 501.9520, L501.82159, L501.5200, L3300.6400, L500.4050, L100.0100, L501.9310 ####[facility] [address] [place], [address] Eosinophils/100 WBC (Bld) 2.3 % Normal 0-5 [facility] Comment on above: Order Comment: 103.1 Performed By: #### L 501.9520, L501.15580, L501.5200, L3300.6400, L500.4050, L100.0100, L501.9310 ####[facility] [address] [place], [address] Erythrocyte distribution width (RBC) [Ratio] 17.2 % High 11.6-14.6 [facility] Comment on above: Order Comment: 103.1 Performed By: #### L 501.9520, L501.00905, L501.5200, L3300.6400, L500.4050, L100.0100, L501.9310 ####[facility] [address] [place], [address] Hematocrit (Bld) [Volume fraction] 36.0 % Low 37-47 [facility] Comment on above: Order Comment: 103.1 Performed By: #### L 501.9520, L501.74410, L501.5200, L3300.6400, L500.4050, L100.0100, L501.9310 ####[facility] [address] [place], [address] Hemoglobin (Bld) [Mass/Vol] 10.4 g/dL Low 12.0-15.0 [facility] Comment on above: Order Comment: 103.1 Performed By: #### L 501.9520, L501.15397, L501.5200, L3300.6400, L500.4050, L100.0100, L501.9310 ####[facility] [address] [place], [address] IG% 1.000 High 0.0-0.9 [facility] Comment on above: Order Comment: 103.1 Result Comment: IG% - Immature Granulocytes (promyelocytes, myelocytes andmetamyelocytes) > 1% indicates that a LEFT SHIFT is Present. Performed By: #### L 501.9520, L501.85385, L501.5200, L3300.6400, L500.4050, L100.0100, L501.9310 ####[facility] [address] [place], [address] Lymphocytes/100 WBC (Bld) 12.8 % Low 19-41 [facility] Comment on above: Order Comment: 103.1 Performed By: #### L 501.9520, L501.11082, L501.5200, L3300.6400, L500.4050, L100.0100, L501.9310 ####[facility] [address] [place], [address] MCH (RBC) [Entitic mass] 28.2 pg Normal 27.0-32.0 [facility] Comment on above: Order Comment: 103.1 Performed By: #### L 501.9520, L501.31343, L501.5200, L3300.6400, L500.4050, L100.0100, L501.9310 ####[facility] [address] [place], [address] MCHC (RBC) [Mass/Vol] 28.9 g/dL Low 32-36 [facility] Comment on above: Order Comment: 103.1 Performed By: #### L 501.9520, L501.04911, L501.5200, L3300.6400, L500.4050, L100.0100, L501.9310 ####[facility] [address] [place], [address] MCV (RBC) [Entitic vol] 97.6 fL Normal 81-99 [facility] Comment on above: Order Comment: 103.1 Performed By: #### L 501.9520, L501.26387, L501.5200, L3300.6400, L500.4050, L100.0100, L501.9310 ####[facility] [address] [place], [address] Monocytes/100 WBC (Bld) 9.3 % Normal 0-10 [facility] Comment on above: Order Comment: 103.1 Performed By: #### L 501.9520, L501.26058, L501.5200, L3300.6400, L500.4050, L100.0100, L501.9310 ####[facility] [address] [place], [address] Neutrophils/100 WBC (Bld) 73.8 % High 47-70 [facility] Comment on above: Order Comment: 103.1 Performed By: #### L 501.9520, L501.28279, L501.5200, L3300.6400, L500.4050, L100.0100, L501.9310 ####[facility] [address] [place], [address] Nucleated RBC (Bld) [#/Vol] 0 10*3/uL Normal 0-5 [facility] Comment on above: Order Comment: 103.1 Performed By: #### L 501.9520, L501.40647, L501.5200, L3300.6400, L500.4050, L100.0100, L501.9310 ####[facility] [address] [place], [address] Platelet mean volume (Bld) [Entitic vol] 9.4 fL Normal 6.2-12.0 [facility] [facility] Comment on above: Order Comment: 103.1 Performed By: #### L 501.9520, L501.45161, L501.5200, L3300.6400, L500.4050, L100.0100, L501.9310 ####[facility] [address] [place], [address] Platelets (Bld) [#/Vol] 140 10*3/uL Low 150-450 [facility] Comment on above: Order Comment: 103.1 Performed By: #### L 501.9520, L501.21939, L501.5200, L3300.6400, L500.4050, L100.0100, L501.9310 ####[facility] [address] [place], [address] RBC (Bld) [#/Vol] 3.69 10*6/uL Low 4.2-5.4 [facility] Comment on above: Order Comment: 103.1 Performed By: #### L 501.9520, L501.98569, L501.5200, L3300.6400, L500.4050, L100.0100, L501.9310 ####[facility] [address] [place], [address] RDW SD 62.0 fl High 35.1-43.9 [facility] Comment on above: Order Comment: 103.1 Performed By: #### L 501.9520, L501.67756, L501.5200, L3300.6400, L500.4050, L100.0100, L501.9310 ####[facility] [address] [place], [address] WBC (Bld) [#/Vol] 4.8 10*3/uL Normal 4.4-11.0 [facility] Comment on above: Order Comment: 103.1 Performed By: #### L 501.9520, L501.73602, L501.5200, L3300.6400, L500.4050, L100.0100, L501.9310 ####[facility] [address] [place], [address] Calcium [Mass/Vol]Ordered By : Millie Massey on 05-27-2024 Serum or plasma calcium measurement (mass/volume) 7.8 mg/dL Low 8.5-10.1 [facility] Carbon dioxide measurementOr dered By: Millie Massey on 05-27-2024 Carbon dioxide measurement 30.0 mmol/L 21.0-32.0 [facility] Chloride measurementOrdered By: Millie Massey on 05-27-2024 Chloride measurement 103 mmol/L 98-107 [facility] Comprehensive Metabolic Prof ilon 05-27-2024 Albumin [Mass/Vol] 1.8 g/dL Low 3.2-5.0 [facility] Comment on above: Order Comment: 103.1 Performed By: #### L 501.9520, L501.11817, L501.5200, L3300.6400, L500.4050, L100.0100, L501.9310 ####[facility] [address] [place], [address] Albumin/Globulin [Mass ratio] 0.4 {ratio} Low 0.9-2.4 [facility] Comment on above: Order Comment: 103.1 Performed By: #### L 501.9520, L501.37080, L501.5200, L3300.6400, L500.4050, L100.0100, L501.9310 ####[facility] [address] [place], [address] ALK P 65 U/L Normal 45-117 [facility] Comment on above: Order Comment: 103.1 Performed By: #### L 501.9520, L501.81068, L501.5200, L3300.6400, L500.4050, L100.0100, L501.9310 ####[facility] [address] [place], [address] ALT [Catalytic activity/Vol] 10 U/L Low 13-56 [facility] Comment on above: Order Comment: 103.1 Performed By: #### L 501.9520, L501.15023, L501.5200, L3300.6400, L500.4050, L100.0100, L501.9310 ####[facility] [address] [place], [address] AST [Catalytic activity/Vol] 14 U/L Low 15-37 [facility] Comment on above: Order Comment: 103.1 Performed By: #### L 501.9520, L501.98875, L501.5200, L3300.6400, L500.4050, L100.0100, L501.9310 ####[facility] [address] [place], [address] Bilirubin [Mass/Vol] 0.40 mg/dL Normal 0.20-1.00 [facility] Comment on above: Order Comment: 103.1 Result Comment: For patients on eltrombopag therapy, use of Dimension Hammon TBIL is not recommended. Performed By: #### L 501.9520, L501.78749, L501.5200, L3300.6400, L500.4050, L100.0100, L501.9310 ####[facility] [address] [place], [address] BUN/CRE 15.6 RATIO Normal 10-20 [facility] Comment on above: Order Comment: 103.1 Performed By: #### L 501.9520, L501.69655, L501.5200, L3300.6400, L500.4050, L100.0100, L501.9310 ####[facility] [address] [place], [address] CA,Total 7.8 mg/dL Low 8.5-10.1 [facility] Comment on above: Order Comment: 103.1 Performed By: #### L 501.9520, L501.42797, L501.5200, L3300.6400, L500.4050, L100.0100, L501.9310 ####[facility] [address] [place], [address] Chloride [Moles/Vol] 103 mmol/L Normal 98-107 [facility] Comment on above: Order Comment: 103.1 Performed By: #### L 501.9520, L501.89491, L501.5200, L3300.6400, L500.4050, L100.0100, L501.9310 ####[facility] [address] [place], [address] CO2 [Moles/Vol] 30.0 mmol/L Normal 21.0-32.0 [facility] Comment on above: Order Comment: 103.1 Performed By: #### L 501.9520, L501.10924, L501.5200, L3300.6400, L500.4050, L100.0100, L501.9310 ####[facility] [address] [place], [address] Creatinine [Mass/Vol] 1.41 mg/dL High 0.55-1.02 [facility] Comment on above: Order Comment: 103.1 Result Comment: The validity of the calculated GFR GFRAA in patients over70 years has not been determined. Clinical correlation isessential. Performed By: #### L 501.9520, L501.34520, L501.5200, L3300.6400, L500.4050, L100.0100, L501.9310 ####[facility] [address] [place], [address] EST GFR - AA 49 mL/min Low >60 [facility] Comment on above: Order Comment: 103.1 Result Comment: Afri can [place] Citizen GFR Calc Performed By: #### L 501.9520, L501.53296, L501.5200, L3300.6400, L500.4050, L100.0100, L501.9310 ####[facility] [address] [place], [address] GAP 4 Low 5-15 [facility] Comment on above: Order Comment: 103.1 Performed By: #### L 501.9520, L501.41366, L501.5200, L3300.6400, L500.4050, L100.0100, L501.9310 ####[facility] [address] [place], [address] GFR/1.73 sq M.predicted among non-blacks MDRD (S/P/Bld) [Vol rate/Area] 40 mL/min/{1.73_m2} Low >60 [facility] Comment on above: Order Comment: 103.1 Result Comment: Non- GFR Calc Performed By: #### L 501.9520, L501.80381, L501.5200, L3300.6400, L500.4050, L100.0100, L501.9310 ####[facility] [address] [place], [address] Globulin (S) [Mass/Vol] 4.2 g/dL Normal 2.2-4.2 [facility] Comment on above: Order Comment: 103.1 Performed By: #### L 501.9520, L501.75692, L501.5200, L3300.6400, L500.4050, L100.0100, L501.9310 ####[facility] [address] [place], [address] Glucose [Mass/Vol] 74 mg/dL Normal 74-106 [facility] Comment on above: Order Comment: 103.1 Performed By: #### L 501.9520, L501.63936, L501.5200, L3300.6400, L500.4050, L100.0100, L501.9310 ####[facility] [address] [place], [address] Potassium [Moles/Vol] 4.0 mmol/L Normal 3.5-5.1 [facility] Comment on above: Order Comment: 103.1 Performed By: #### L 501.9520, L501.52579, L501.5200, L3300.6400, L500.4050, L100.0100, L501.9310 ####[facility] [address] [place], [address] Sodium [Moles/Vol] 138 mmol/L Normal 136-145 [facility] Comment on above: Order Comment: 103.1 Performed By: #### L 501.9520, L501.94484, L501.5200, L3300.6400, L500.4050, L100.0100, L501.9310 ####[facility] [address] [place], [address] T PROT 6.0 g/dL Low 6.4-8.2 [facility] Comment on above: Order Comment: 103.1 Performed By: #### L 501.9520, L501.93235, L501.5200, L3300.6400, L500.4050, L100.0100, L501.9310 ####[facility] [address] [place], [address] Urea nitrogen [Mass/Vol] 22 mg/dL High 7-18 [facility] Comment on above: Order Comment: 103.1 Performed By: #### L 501.9520, L501.26063, L501.5200, L3300.6400, L500.4050, L100.0100, L501.9310 ####[facility] [address] [facility] [place], [place], [id number] Creatinine [Mass/Vol]Ordered By: Millie Massey on 05-27-2024 Serum or plasma creatinine measurement (mass/volume) 1.41 mg/dL High 0.55-1.02 [facility] Eosinophil percentageOrdered By: Millieblanche Massey on 05-27-2024 Eosinophil percentage 2.3 % 0-5 [facility] Erythrocyte distribution wid th (RBC) [Ratio]Ordered By: Millie Massey on 05-27-2024 Erythrocyte distribution width ratio 17.2 % High 11.6-14.6 [facility] Erythrocyte distribution wid th standard deviationOrdered By: Millie Massey on 05-27-2024 Erythrocyte distribution width standard deviation 62.0 fl High 35.1-43.9 [facility] Estimated glomerular filtrat ion rate (GFR) AmericanOrdered By: Millie Massey on 05-27-2024 Estimated glomerular filtration rate (GFR) 49 mL/min Low >60 [facility] Free T3on 05-27-2024 Free T3 [Mass/Vol] 0.9 pg/mL Low 2.18-3.98 [facility] Comment on above: Order Comment: 103.1 Performed By: #### L 501.9520, L501.07303, L501.5200, L3300.6400, L500.4050, L100.0100, L501.9310 ####[facility] [address] [place], [address] Free N5Oshwffs By: Millie ramirez on 05-27-2024 Free T3 0.9 pg/mL Low 2.18-3.98 [facility] Glomerular filtration rate ( GFR) estimationOrdered By: Millie Massey on 05-27-2024 Glomerular filtration rate (GFR) estimation 40 mL/min Low >60 [facility] Glucose measurementOrdered B y: Millieblanche Massey on 05-27-2024 Glucose measurement 74 mg/dL 74-106 [facility] Hematocrit Auto (Bld) [Volum e fraction]Ordered By: Millie Massey on 05-27-2024 Automated blood hematocrit (percentage) 36.0 % Low 37-47 [facility] Hemoglobin measurementOrdere d By: Millie Massey on 05-27-2024 Hemoglobin measurement 10.4 g/dL Low 12.0-15.0 [facility] Immature granulocytes/100 WB C Auto (Bld)Ordered By: Millie Massey on 05-27-2024 Automated immature granulocyte percentage 1.000 % High 0.0-0.9 [facility] Lymphocytes Auto (Unsp spec) [#/Vol]Ordered By: Millie Massey on 05-27-2024 Absolute lymphocyte count 0.62 X10^3/uL Low 0.83-4.51 [facility] Lymphocytes/100 WBC Auto (Un sp spec)Ordered By: Millie Massey on 05-27-2024 Automated lymphocyte count as percentage of total leukocytes 12.8 % Low 19-41 [facility] MCV (RBC) [Entitic vol]Order ed By: Millie Massey on 05-27-2024 MCV (mean corpuscular volume) determination 97.6 fL 81-99 [facility] Magnesiumon 05-27-2024 Magnesium [Mass/Vol] 2.0 mg/dL Normal 1.6-2.6 [facility] Comment on above: Order Comment: 103.1 Performed By: #### L 501.9585, L501.85920, L501.5200, L3300.6400, L500.4050, L100.0100, L501.9310 ####[facility] [address] [place], [address] Magnesium measurementOrdered By: Millie Massey on 05-27-2024 Magnesium measurement 2.0 mg/dL 1.6-2.6 [facility] Mean corpuscular hemoglobin (MCH) determinationOrdered By: Millie Massey on 05-27-2024 Mean corpuscular hemoglobin (MCH) determination 28.2 pg 27.0-32.0 [facility] Mean corpuscular hemoglobin concentration (MCHC) determinationOrdered By: Millie Massey on 05-27-2024 Mean corpuscular hemoglobin concentration (MCHC) determination 28.9 g/dL Low 32-36 [facility] Mean platelet volume determi nationOrdered By: Millie Massey on 05-27-2024 Mean platelet volume determination 9.4 fl 6.2-12.0 [facility] Miscellaneous procedureOrder ed By: Millie Massey on 05-27-2024 Miscellaneous procedure See comment [facility] Monocyte percentageOrdered B y: Millie Massey on 05-27-2024 Monocyte percentage 9.3 % 0-10 [facility] Neutrophil percentageOrdered By: Millie Massey on 05-27-2024 Neutrophil percentage 73.8 % High 47-70 [facility] No Panel InformationOrdered By: Millie Massey on 05-27-2024 14 U/L Low 15-37 [facility] Nucleated red blood cell per centageOrdered By: Millie Massey on 05-27-2024 Nucleated red blood cell percentage 0 % 0-5 [facility] Platelet countOrdered By: Carter Massey on 05-27-2024 Platelet count 140 K/mm3 Low 150-450 [facility] Potassium measurementOrdered By: Millie Massey on 05-27-2024 Potassium measurement 4.0 mmol/L 3.5-5.1 [facility] RBC Auto (Bld) [#/Vol]Ordere d By: Millie Massey on 05-27-2024 Automated blood erythrocyte count 3.69 M/mm3 Low 4.2-5.4 [facility] Serum anion gap measurementO rdered By: Millie Massey on 05-27-2024 Serum anion gap measurement 4 Low 5-15 [facility] Serum globulin measurementOr dered By: Millie Massey on 05-27-2024 Serum globulin measurement 4.2 g/dL 2.2-4.2 [facility] Serum prealbumin measurement by immunoassayOrdered By: Millie Massey on 05-27-2024 Serum prealbumin measurement by immunoassay 10 mg/dL 10-36 [facility] Sodium levelOrdered By: Silvana Massey on 05-27-2024 Sodium level 138 mmol/L 136-145 [facility] T4 Total, Thyroxinon 024 T4 [Mass/Vol] 11.8 ug/dL Normal 4.8-13.9 [facility] Comment on above: Order Comment: 103.1 Performed By: #### L 501.9520, L501.97024, L501.5200, L3300.6400, L500.4050, L100.0100, L501.9310 ####[facility] [address] [place], [address] T4 [Mass/Vol]Ordered By: Lesli Massey on 05-27-2024 Serum or plasma thyroxine (T4) measurement (mass/volume) 11.8 ug/dL 4.8-13.9 [facility] TSH QnOrdered By: Millie little on 05-27-2024 Serum or plasma thyroid stimulating hormone (TSH) measurement (units/volume) 3.060 uIU/mL 0.358-3.74 0 [facility] Thyroid Stim Hormone (TSH)on 05-27-2024 TSH 3.060 uIU/mL Normal 0.358-3.74 0 [facility] Comment on above: Order Comment: 103.1 Performed By: #### L 501.9520, L501.52558, L501.5200, L3300.6400, L500.4050, L100.0100, L501.9310 ####[facility] [address] [place], [place], [id number] Total proteinOrdered By: Lesli Massey on 05-27-2024 Total protein 6.0 g/dL Low 6.4-8.2 [facility] Urea nitrogen [Mass/Vol]Orde red By: Millie Massey on 05-27-2024 Serum or plasma urea nitrogen measurement (mass/volume) 22 mg/dL High 7-18 [facility] White blood cell (WBC) count Ordered By: Millie Massey on 05-27-2024 White blood cell (WBC) count 4.8 K/mm3 4.4-11.0 [facility] Miscellaneous Lab Procedureo n 05-10-2024 MISC LAB TEST Normal [facility] Comment on above: Order Comment: [id number] CYSTATIN C SERUM RT Result Comment: TEST RESULTS LIMITSCystatin C 3.68 High mg/L 0.72-1.16 ___ TESTING PERFORMED AT [facility]. ORIGINAL REPORT ON FILE IN LAB CONTAINS ADDITIONAL TEST SITE INFORMATION. Performed By: #### L 801.1541 ####[facility] [address] [place], [place], [address] Surgery Visit Reporton 04-30 Surgery Visit Report Normal [facility] Basic Metabolic Profile (BMP )on 04-24-2024 BUN/CRE 11.9 RATIO Normal 10-20 [facility] Comment on above: Order Comment: 103 Performed By: #### L 500.2500, L501.9310, L501.9186, L501.9520, L100.0500 ####[facility] [address] [place], [address] CA,Total 7.7 mg/dL Low 8.5-10.1 [facility] Comment on above: Order Comment: 103 Performed By: #### L 500.2500, L501.9310, L501.9186, L501.9520, L100.0500 ####[facility] [address] [place], [address] Chloride [Moles/Vol] 109 mmol/L High 98-107 [facility] Comment on above: Order Comment: 103 Performed By: #### L 500.2500, L501.9310, L501.9186, L501.9520, L100.0500 ####[facility] [address] [place], [address] CO2 [Moles/Vol] 29.0 mmol/L Normal 21.0-32.0 [facility] Comment on above: Order Comment: 103 Performed By: #### L 500.2500, L501.9310, L501.9186, L501.9520, L100.0500 ####[facility] [address] [place], [address] Creatinine [Mass/Vol] 1.77 mg/dL High 0.55-1.02 [facility] Comment on above: Order Comment: 103 Result Comment: The validity of the calculated GFR GFRAA in patients over70 years has not been determined. Clinical correlation isessential. Performed By: #### L 500.2500, L501.9310, L501.9186, L501.9520, L100.0500 ####[facility] [address] [place], [address] EST GFR - AA 37 mL/min Low >60 [facility] Comment on above: Order Comment: 103 Result Comment: Afri can [place] Citizen GFR Calc Performed By: #### L 500.2500, L501.9310, L501.9186, L501.9520, L100.0500 ####[facility] [address] [place], [address] GAP 2 Low 5-15 [facility] Comment on above: Order Comment: 103 Performed By: #### L 500.2500, L501.9310, L501.9186, L501.9520, L100.0500 ####[facility] [address] [place], [address] GFR/1.73 sq M.predicted among non-blacks MDRD (S/P/Bld) [Vol rate/Area] 31 mL/min/{1.73_m2} Low >60 [facility] Comment on above: Order Comment: 103 Result Comment: Non- GFR Calc Performed By: #### L 500.2500, L501.9310, L501.9186, L501.9520, L100.0500 ####[facility] [address] [place], [address] Glucose [Mass/Vol] 65 mg/dL Low 74-106 [facility] Comment on above: Order Comment: 103 Performed By: #### L 500.2500, L501.9310, L501.9186, L501.9520, L100.0500 ####[facility] [address] [place], [address] Potassium [Moles/Vol] 4.9 mmol/L Normal 3.5-5.1 [facility] Comment on above: Order Comment: 103 Performed By: #### L 500.2500, L501.9310, L501.9186, L501.9520, L100.0500 ####[facility] [address] [place], [address] Sodium [Moles/Vol] 140 mmol/L Normal 136-145 [facility] Comment on above: Order Comment: 103 Performed By: #### L 500.2500, L501.9310, L501.9186, L501.9520, L100.0500 ####[facility] [address] [place], [address] Urea nitrogen [Mass/Vol] 21 mg/dL High 7-18 [facility] Comment on above: Order Comment: 103 Performed By: #### L 500.2500, L501.9310, L501.9186, L501.9520, L100.0500 ####[facility] [address] [place], [address] Blood urea nitrogen (BUN)/cr eatinine ratioOrdered By: Ethan Rodriguez on 04-24-2024 Blood urea nitrogen (BUN)/creatinine ratio 11.9 RATIO 10-20 [facility] CBC-Complete Blood Cnt No Di ffon 04-24-2024 Erythrocyte distribution width (RBC) [Ratio] 18.4 % High 11.6-14.6 [facility] Comment on above: Order Comment: 103 Performed By: #### L 500.2500, L501.9310, L501.9186, L501.9520, L100.0500 ####[facility] [address] [place], [address] Hematocrit (Bld) [Volume fraction] 35.3 % Low 37-47 [facility] Comment on above: Order Comment: 103 Performed By: #### L 500.2500, L501.9310, L501.9186, L501.9520, L100.0500 ####[facility] [address] [place], [address] Hemoglobin (Bld) [Mass/Vol] 10.4 g/dL Low 12.0-15.0 [facility] Comment on above: Order Comment: 103 Performed By: #### L 500.2500, L501.9310, L501.9186, L501.9520, L100.0500 ####[facility] [address] [place], [address] MCH (RBC) [Entitic mass] 27.3 pg Normal 27.0-32.0 [facility] Comment on above: Order Comment: 103 Performed By: #### L 500.2500, L501.9310, L501.9186, L501.9520, L100.0500 ####[facility] [address] [place], [address] MCHC (RBC) [Mass/Vol] 29.5 g/dL Low 32-36 [facility] Comment on above: Order Comment: 103 Performed By: #### L 500.2500, L501.9310, L501.9186, L501.9520, L100.0500 ####[facility] [address] [place], [address] MCV (RBC) [Entitic vol] 92.7 fL Normal 81-99 [facility] Comment on above: Order Comment: 103 Performed By: #### L 500.2500, L501.9310, L501.9186, L501.9520, L100.0500 ####[facility] [address] [place], [address] Platelet mean volume (Bld) [Entitic vol] 11.0 fL Normal 6.2-12.0 [facility] Comment on above: Order Comment: 103 Performed By: #### L 500.2500, L501.9310, L501.9186, L501.9520, L100.0500 ####[facility] [address] [place], [address] Platelets (Bld) [#/Vol] 105 10*3/uL Low 150-450 [facility] Comment on above: Order Comment: 103 Performed By: #### L 500.2500, L501.9310, L501.9186, L501.9520, L100.0500 ####[facility] [address] [place], [address] RBC (Bld) [#/Vol] 3.81 10*6/uL Low 4.2-5.4 [facility] Comment on above: Order Comment: 103 Performed By: #### L 500.2500, L501.9310, L501.9186, L501.9520, L100.0500 ####[facility] [address] [place], [address](967) RDW SD 61.0 fl High 35.1-43.9 [facility] Comment on above: Order Comment: 103 Performed By: #### L 500.2500, L501.9310, L501.9186, L501.9520, L100.0500 ####[facility] [address] [place], [address] WBC (Bld) [#/Vol] 4.5 10*3/uL Normal 4.4-11.0 [facility] Comment on above: Order Comment: 103 Performed By: #### L 500.2500, L501.9310, L501.9186, L501.9520, L100.0500 ####[facility] [address] [place], [place], [id number]) Calcium [Mass/Vol]Ordered By : Ethan Rodriguez on 04-24-2024 Serum or plasma calcium measurement (mass/volume) 7.7 mg/dL Low 8.5-10.1 [facility] Carbon dioxide measurementOr dered By: Ethan Rodriguez on 04-24-2024 Carbon dioxide measurement 29.0 mmol/L 21.0-32.0 [facility] Chloride measurementOrdered By: Ethan Rodriguez on 04-24-2024 Chloride measurement 109 mmol/L High 98-107 [facility] Creatinine [Mass/Vol]Ordered By: Ethan Rodriguez on 04-24-2024 Serum or plasma creatinine measurement (mass/volume) 1.77 mg/dL High 0.55-1.02 [facility] Erythrocyte distribution wid th (RBC) [Entitic vol]Ordered By: Ethan Rodriguez on 04-24-2024 Erythrocyte distribution width standard deviation 61.0 fl High 35.1-43.9 [facility] Erythrocyte distribution wid th (RBC) [Ratio]Ordered By: Ethan Rodriguez on 04-24-2024 Erythrocyte distribution width ratio 18.4 % High 11.6-14.6 [facility] Estimated glomerular filtrat ion rate (GFR) AmericanOrdered By: Ethan Rodriguez on 04-24-2024 Estimated glomerular filtration rate (GFR) 37 mL/min Low >60 [facility] Glomerular filtration rate ( GFR) estimationOrdered By: Ethan Rodriguez on 04-24-2024 Glomerular filtration rate (GFR) estimation 31 mL/min Low >60 [facility] Glucose measurementOrdered B y: Ethan Rodriguez on 04-24-2024 Glucose measurement 65 mg/dL Low 74-106 [facility] Hematocrit Auto (Bld) [Volum e fraction]Ordered By: Ethan Rodriguez on 04-24-2024 Automated blood hematocrit (percentage) 35.3 % Low 37-47 [facility] Hemoglobin measurementOrdere d By: Ethan Rodriguez on 04-24-2024 Hemoglobin measurement 10.4 g/dL Low 12.0-15.0 [facility] MCV (RBC) [Entitic vol]Order ed By: Ethan Rodriguez on 04-24-2024 MCV (mean corpuscular volume) determination 92.7 fL 81-99 [facility] Mean corpuscular hemoglobin (MCH) determinationOrdered By: Ethan Rodriguez on 04-24-2024 Mean corpuscular hemoglobin (MCH) determination 27.3 pg 27.0-32.0 [facility] Mean corpuscular hemoglobin concentration (MCHC) determinationOrdered By: Ethan Rodriguez on 04-24-2024 Mean corpuscular hemoglobin concentration (MCHC) determination 29.5 g/dL Low 32-36 [facility] Mean platelet volume determi nationOrdered By: Ethan Rodriguez on 04-24-2024 Mean platelet volume determination 11.0 fl 6.2-12.0 [facility] Platelet countOrdered By: Chester Rodriguez on 04-24-2024 Platelet count 105 K/mm3 Low 150-450 [facility] Potassium measurementOrdered By: Ethan Rodriguez on 04-24-2024 Potassium measurement 4.9 mmol/L 3.5-5.1 [facility] RBC Auto (Bld) [#/Vol]Ordere d By: Ethan Rodriguez on 04-24-2024 Automated blood erythrocyte count 3.81 M/mm3 Low 4.2-5.4 [facility] Serum anion gap measurementO rdered By: Ethan Rodriguez on 04-24-2024 Serum anion gap measurement 2 Low 5-15 [facility] Sodium levelOrdered By: Ethan Rodriguez on 04-24-2024 Sodium level 140 mmol/L 136-145 [facility] T3 IA [Mass/Vol]Ordered By: Ethan Rodriguez on 04-24-2024 Serum or plasma triiodothyronine measurement by immunoassay (mass/volume) 0.64 ng/mL 0.6-1.81 [facility] T3 Total - Triiodothyronineo n 04-24-2024 T3 Total 0.64 ng/mL Normal 0.6-1.81 [facility] Comment on above: Order Comment: 103 Performed By: #### L 500.2500, L501.9310, L501.9186, L501.9520, L100.0500 ####[facility] [address] [place], [place], [id number] T4 Total, Thyroxinon 024 T4 [Mass/Vol] 6.1 ug/dL Normal 4.8-13.9 [facility] Comment on above: Order Comment: 103 Performed By: #### L 500.2500, L501.9310, L501.9186, L501.9520, L100.0500 ####[facility] [address] [facility] [place], [place], [address] T4 [Mass/Vol]Ordered By: Ava Rodriguez on 04-24-2024 Serum or plasma thyroxine (T4) measurement (mass/volume) 6.1 ug/dL 4.8-13.9 [facility] TSH QnOrdered By: Ethan calvert on 04-24-2024 Serum or plasma thyroid stimulating hormone (TSH) measurement (units/volume) 12.000 uIU/mL High 0.358-3.74 0 [facility] Thyroid Stim Hormone (TSH)on 04-24-2024 TSH 12.000 uIU/mL High 0.358-3.74 0 [facility] Comment on above: Order Comment: 103 Performed By: #### L 500.2500, L501.9310, L501.9186, L501.9520, L100.0500 ####[facility] [address] [place], [address] Urea nitrogen [Mass/Vol]Orde red By: Ethan Rodriguez on 04-24-2024 Serum or plasma urea nitrogen measurement (mass/volume) 21 mg/dL High - [facility] White blood cell (WBC) count Ordered By: Ethan Rodriguez on 04-24-2024 White blood cell (WBC) count 4.5 K/mm3 4.4-11.0 [facility] Basic Metabolic Profile (BMP )on 04-23-2024 BUN Normal - [facility] Comment on above: Order Comment: 103.1 Result Comment: UTO Performed By: #### L 500.2500, L100.0500 ####[facility] [address] [place], [address] BUN/CRE Normal 10-20 [facility] Comment on above: Order Comment: 103.1 Result Comment: UTO Performed By: #### L 500.2500, L100.0500 ####[facility] [address] [place], [address] CA,Total Normal 8.5-10.1 [facility] Comment on above: Order Comment: 103.1 Result Comment: UTO Performed By: #### L 500.2500, L100.0500 ####[facility] [address] [place], [address] CL Normal 98-107 [facility] Comment on above: Order Comment: 103.1 Result Comment: UTO Performed By: #### L 500.2500, L100.0500 ####[facility] [address] [place], [address] CO2 Normal 21.0-32.0 [facility] Comment on above: Order Comment: 103.1 Result Comment: UTO Performed By: #### L 500.2500, L100.0500 ####[facility] [address] [place], [address] CREAT,SERUM Normal 0.55-1.02 [facility] Comment on above: Order Comment: 103.1 Result Comment: UTO Performed By: #### L 500.2500, L100.0500 ####[facility] [address] [place], [address] EST GFR Normal >60 [facility] Comment on above: Order Comment: 103.1 Result Comment: UTO Performed By: #### L 500.2500, L100.0500 ####[facility] [address] [place], [address] EST GFR - AA Normal >60 [facility] Comment on above: Order Comment: 103.1 Result Comment: UTO Performed By: #### L 500.2500, L100.0500 ####[facility] [address] [place], [address] GAP Normal 5-15 [facility] Comment on above: Order Comment: 103.1 Result Comment: UTO Performed By: #### L 500.2500, L100.0500 ####[facility] [address] [place], [address] GLU Normal 74-106 [facility] Comment on above: Order Comment: 103.1 Result Comment: UTO Performed By: #### L 500.2500, L100.0500 ####[facility] [address] [place], [address] Potassium Normal 3.5-5.1 [facility] Comment on above: Order Comment: 103.1 Result Comment: UTO Performed By: #### L 500.2500, L100.0500 ####[facility] [address] [place], [address] Basic Metabolic Profile (BMP) Normal 136-145 [facility] Comment on above: Order Comment: 103.1 Result Comment: UTO Performed By: #### L 500.2500, L100.0500 ####[facility] [address] [place], [address] CBC-Complete Blood Cnt No Di ffon 04-23-2024 HCT Normal 37-47 [facility] Comment on above: Order Comment: 103.1 Result Comment: UTO Performed By: #### L 500.2500, L100.0500 ####[facility] [address] [place], [address] HGB Normal 12.0-15.0 [facility] Comment on above: Order Comment: 103.1 Result Comment: UTO Performed By: #### L 500.2500, L100.0500 ####[facility] [address] [place], [address] MCH Normal 27.0-32.0 [facility] Comment on above: Order Comment: 103.1 Result Comment: UTO Performed By: #### L 500.2500, L100.0500 ####[facility] [address] [place], [address] MCHC Normal 32-36 [facility] Comment on above: Order Comment: 103.1 Result Comment: UTO Performed By: #### L 500.2500, L100.0500 ####[facility] [address] [place], [address] MCV Normal 81-99 [facility] Comment on above: Order Comment: 103.1 Result Comment: UTO Performed By: #### L 500.2500, L100.0500 ####[facility] [address] [place], [address] PLT Normal 150-450 [facility] Comment on above: Order Comment: 103.1 Result Comment: UTO Performed By: #### L 500.2500, L100.0500 ####[facility] [address] [place], [address] RBC Normal 4.2-5.4 [facility] Comment on above: Order Comment: 103.1 Result Comment: UTO Performed By: #### L 500.2500, L100.0500 ####[facility] [address] [place], [address] RDW CV Normal 11.6-14.6 [facility] Comment on above: Order Comment: 103.1 Result Comment: UTO Performed By: #### L 500.2500, L100.0500 ####[facility] [address] [place], [address] RDW SD Normal 35.1-43.9 [facility] Comment on above: Order Comment: 103.1 Result Comment: UTO Performed By: #### L 500.2500, L100.0500 ####[facility] [address] [place], [address] WBC Normal 4.4-11.0 [facility] Comment on above: Order Comment: 103.1 Result Comment: UTO Performed By: #### L 500.2500, L100.0500 ####[facility] [address] [place], [address] ALP [Catalytic activity/Vol] Ordered By: Ethan Rodriguez on 04-17-2024 Serum or plasma alkaline phosphatase measurement 71 U/L 45-117 [facility] ALT [Catalytic activity/Vol] Ordered By: Ethan Rodriguez on 04-17-2024 Serum or plasma alanine aminotransferase (ALT) measurement 8 U/L Low 13-56 [facility] Albumin [Mass/Vol]Ordered By : Ethan Rodriguez on 04-17-2024 Serum or plasma albumin measurement (mass/volume) 1.7 g/dL Low 3.2-5.0 [facility] Albumin to globulin ratioOrd ered By: Ethan Rodriguez on 04-17-2024 Albumin to globulin ratio 0.4 RATIO Low 0.9-2.4 [facility] Ammoniaon 04-17-2024 Ammonia (P) [Moles/Vol] 22.0 umol/L Normal 11-32 [facility] Comment on above: Performed By: #### L 100.0500, L100.4500, L503.5510, L504.2610, L500.4050, M100.6795, M100.6796 ####[facility] [address] [place], [place], [id number]) Bilirubin, totalOrdered By: Ethan Rodriguez on 04-17-2024 Bilirubin, total 0.40 mg/dL 0.20-1.00 [facility] Blood urea nitrogen (BUN)/cr eatinine ratioOrdered By: Ethan Rodriguez on 04-17-2024 Blood urea nitrogen (BUN)/creatinine ratio 18.1 RATIO 03-17 [facility] CBC-Complete Blood Cnt No Di ffon 04-17-2024 Erythrocyte distribution width (RBC) [Ratio] 17.9 % High 11.6-14.6 [facility] Comment on above: Performed By: #### L 100.0500, L100.4500, L503.5510, L504.2610, L500.4050, M100.6795, M100.6796 ####[facility] [address] [place], [place], [id number] Hematocrit (Bld) [Volume fraction] 37.4 % Normal 37-47 [facility] Comment on above: Performed By: #### L 100.0500, L100.4500, L503.5510, L504.2610, L500.4050, M100.6795, M100.6796 ####[facility] [address] [place], [address] Hemoglobin (Bld) [Mass/Vol] 10.9 g/dL Low 12.0-15.0 [facility] Comment on above: Performed By: #### L 100.0500, L100.4500, L503.5510, L504.2610, L500.4050, M100.6795, M100.6796 ####[facility] [address] [place], [address] MCH (RBC) [Entitic mass] 27.3 pg Normal 27.0-32.0 [facility] Comment on above: Performed By: #### L 100.0500, L100.4500, L503.5510, L504.2610, L500.4050, M100.6795, M100.6796 ####[facility] [address] [place], [address] MCHC (RBC) [Mass/Vol] 29.1 g/dL Low 32-36 [facility] Comment on above: Performed By: #### L 100.0500, L100.4500, L503.5510, L504.2610, L500.4050, M100.6795, M100.6796 ####[facility] [address] [place], [address] MCV (RBC) [Entitic vol] 93.5 fL Normal 81-99 [facility] Comment on above: Performed By: #### L 100.0500, L100.4500, L503.5510, L504.2610, L500.4050, M100.6795, M100.6796 ####[facility] [address] [place], [address] Platelet mean volume (Bld) [Entitic vol] 9.8 fL Normal 6.2-12.0 [facility] Comment on above: Performed By: #### L 100.0500, L100.4500, L503.5510, L504.2610, L500.4050, M100.6795, M100.6796 ####[facility] [address] [place], [address] Platelets (Bld) [#/Vol] 92 10*3/uL Low 150-450 [facility] Comment on above: Performed By: #### L 100.0500, L100.4500, L503.5510, L504.2610, L500.4050, M100.6795, M100.6796 ####[facility] [address] [place], [address] RBC (Bld) [#/Vol] 4.00 10*6/uL Low 4.2-5.4 [facility] Comment on above: Performed By: #### L 100.0500, L100.4500, L503.5510, L504.2610, L500.4050, M100.6795, M100.6796 ####[facility] [address] [place], [address] RDW SD 61.1 fl High 35.1-43.9 [facility] Comment on above: Performed By: #### L 100.0500, L100.4500, L503.5510, L504.2610, L500.4050, M100.6795, M100.6796 ####[facility] [address] [place], [address] WBC (Bld) [#/Vol] 5.5 10*3/uL Normal 4.4-11.0 [facility] Comment on above: Performed By: #### L 100.0500, L100.4500, L503.5510, L504.2610, L500.4050, M100.6795, M100.6796 ####[facility] [address] [place], [address] CDIFF (PCR)on 04-17-2024 CDIFF Normal [facility] Comment on above: Performed By: #### L 100.0500, L100.4500, L503.5510, L504.2610, L500.4050, M100.6795, M100.6796 ####[facility] [address] [place], [address] Calcium [Mass/Vol]Ordered By : Ethna Rodriguez on 04-17-2024 Serum or plasma calcium measurement (mass/volume) 7.7 mg/dL Low 8.5-10.1 [facility] Carbon dioxide measurementOr dered By: Ethan Rodriguez on 04-17-2024 Carbon dioxide measurement 26.0 mmol/L 21.0-32.0 [facility] Chloride measurementOrdered By: Ethan Rodriguez on 04-17-2024 Chloride measurement 105 mmol/L 98-107 [facility] Clostridium Diff Toxin/Agon 04-17-2024 CDIFF (EIA) Normal [facility] Comment on above: Performed By: #### L 100.0500, L100.4500, L503.5510, L504.2610, L500.4050, M100.6795, M100.6796 ####[facility] [address] [place], [address] Comprehensive Metabolic Prof ilon 04-17-2024 Albumin [Mass/Vol] 1.7 g/dL Low 3.2-5.0 [facility] Comment on above: Order Comment: 1 Performed By: #### L 100.0500, L100.4500, L503.5510, L504.2610, L500.4050, M100.6795, M100.6796 ####[facility] [address] [place], [address] Albumin/Globulin [Mass ratio] 0.4 {ratio} Low 0.9-2.4 [facility] Comment on above: Order Comment: 1 Performed By: #### L 100.0500, L100.4500, L503.5510, L504.2610, L500.4050, M100.6795, M100.6796 ####[facility] [address] [place], [address] ALK P 71 U/L Normal 45-117 [facility] Comment on above: Order Comment: 1 Performed By: #### L 100.0500, L100.4500, L503.5510, L504.2610, L500.4050, M100.6795, M100.6796 ####[facility] [address] [place], [address] ALT [Catalytic activity/Vol] 8 U/L Low 13-56 [facility] Comment on above: Order Comment: 1 Performed By: #### L 100.0500, L100.4500, L503.5510, L504.2610, L500.4050, M100.6795, M100.6796 ####[facility] [address] [place], [address] AST [Catalytic activity/Vol] 19 U/L Normal 15-37 [facility] Comment on above: Order Comment: 1 Result Comment: Slig ht Hemolysis, Result may be falsely increased. Performed By: #### L 100.0500, L100.4500, L503.5510, L504.2610, L500.4050, M100.6795, M100.6796 ####[facility] [address] [place], [address] Bilirubin [Mass/Vol] 0.40 mg/dL Normal 0.20-1.00 [facility] Comment on above: Order Comment: 1 Result Comment: For patients on eltrombopag therapy, use of Dimension Hammon TBIL is not recommended. Performed By: #### L 100.0500, L100.4500, L503.5510, L504.2610, L500.4050, M100.6795, M100.6796 ####[facility] [address] [place], [place], [address] BUN/CRE 18.1 RATIO Normal 10-20 [facility] Comment on above: Order Comment: 1 Performed By: #### L 100.0500, L100.4500, L503.5510, L504.2610, L500.4050, M100.6795, M100.6796 ####[facility] [address] [place], [address] CA,Total 7.7 mg/dL Low 8.5-10.1 [facility] Comment on above: Order Comment: 1 Performed By: #### L 100.0500, L100.4500, L503.5510, L504.2610, L500.4050, M100.6795, M100.6796 ####[facility] [address] [place], [address] Chloride [Moles/Vol] 105 mmol/L Normal 98-107 [facility] Comment on above: Order Comment: 1 Performed By: #### L 100.0500, L100.4500, L503.5510, L504.2610, L500.4050, M100.6795, M100.6796 ####[facility] [address] [place], [address] CO2 [Moles/Vol] 26.0 mmol/L Normal 21.0-32.0 [facility] Comment on above: Order Comment: 1 Performed By: #### L 100.0500, L100.4500, L503.5510, L504.2610, L500.4050, M100.6795, M100.6796 ####[facility] [address] [place], [address] Creatinine [Mass/Vol] 2.10 mg/dL High 0.55-1.02 [facility] Comment on above: Order Comment: 1 Result Comment: The validity of the calculated GFR GFRAA in patients over70 years has not been determined. Clinical correlation isessential. Performed By: #### L 100.0500, L100.4500, L503.5510, L504.2610, L500.4050, M100.6795, M100.6796 ####[facility] [address] [place], [address] EST GFR - AA 31 mL/min Low >60 [facility] Comment on above: Order Comment: 1 Result Comment: Afri can [place] Citizen GFR Calc Performed By: #### L 100.0500, L100.4500, L503.5510, L504.2610, L500.4050, M100.6795, M100.6796 ####[facility] [address] [place], [address] GAP 6 Normal 5-15 [facility] Comment on above: Order Comment: 1 Performed By: #### L 100.0500, L100.4500, L503.5510, L504.2610, L500.4050, M100.6795, M100.6796 ####[facility] [address] [place], [address] GFR/1.73 sq M.predicted among non-blacks MDRD (S/P/Bld) [Vol rate/Area] 25 mL/min/{1.73_m2} Low >60 [facility] Comment on above: Order Comment: 1 Result Comment: Non- GFR Calc Performed By: #### L 100.0500, L100.4500, L503.5510, L504.2610, L500.4050, M100.6795, M100.6796 ####[facility] [address] [place], [place], [phone] Globulin (S) [Mass/Vol] 4.0 g/dL Normal 2.2-4.2 [facility] Comment on above: Order Comment: 1 Performed By: #### L 100.0500, L100.4500, L503.5510, L504.2610, L500.4050, M100.6795, M100.6796 ####[facility] [address] [place], [address] Glucose [Mass/Vol] 70 mg/dL Low 74-106 [facility] Comment on above: Order Comment: 1 Performed By: #### L 100.0500, L100.4500, L503.5510, L504.2610, L500.4050, M100.6795, M100.6796 ####[facility] [address] [place], [address] Potassium [Moles/Vol] 4.2 mmol/L Normal 3.5-5.1 [facility] Comment on above: Order Comment: 1 Result Comment: Slig ht Hemolysis, Result may be falsely increased. Performed By: #### L 100.0500, L100.4500, L503.5510, L504.2610, L500.4050, M100.6795, M100.6796 ####[facility] [address] [place], [address] Sodium [Moles/Vol] 137 mmol/L Normal 136-145 [facility] Comment on above: Order Comment: 1 Performed By: #### L 100.0500, L100.4500, L503.5510, L504.2610, L500.4050, M100.6795, M100.6796 ####[facility] [address] [place], [address] T PROT 5.7 g/dL Low 6.4-8.2 [facility] Comment on above: Order Comment: 1 Performed By: #### L 100.0500, L100.4500, L503.5510, L504.2610, L500.4050, M100.6795, M100.6796 ####[facility] [address] [place], [address] Urea nitrogen [Mass/Vol] 38 mg/dL High 7-18 [facility] Comment on above: Order Comment: 1 Performed By: #### L 100.0500, L100.4500, L503.5510, L504.2610, L500.4050, M100.6795, M100.6796 ####[facility] [address] [place], [address] Creatinine [Mass/Vol]Ordered By: Ethan Rodriguez on 04-17-2024 Serum or plasma creatinine measurement (mass/volume) 2.10 mg/dL High 0.55-1.02 [facility] Differential Commenton 04-17 SMEAR COMMENT COMMENT Normal [facility] Comment on above: Result Comment: PLT POPULATION - MODERATELY DECREASED. Performed By: #### L 100.0500, L100.4500, L503.5510, L504.2610, L500.4050, M100.6795, M100.6796 ####[facility] [address] [place], [address] Erythrocyte distribution wid th (RBC) [Entitic vol]Ordered By: Ethan Rodriguez on 04-17-2024 Erythrocyte distribution width standard deviation 61.1 fl High 35.1-43.9 [facility] Erythrocyte distribution wid th (RBC) [Ratio]Ordered By: Ethan Rodriguez on 04-17-2024 Erythrocyte distribution width ratio 17.9 % High 11.6-14.6 [facility] Estimated glomerular filtrat ion rate (GFR) AmericanOrdered By: Ethan Rodriguez on 04-17-2024 Estimated glomerular filtration rate (GFR) 31 mL/min Low >60 [facility] Glomerular filtration rate ( GFR) estimationOrdered By: Ethan Rodriguez on 04-17-2024 Glomerular filtration rate (GFR) estimation 25 mL/min Low >60 [facility] Glucose measurementOrdered B y: Ethan Rodriguez on 04-17-2024 Glucose measurement 70 mg/dL Low 74-106 [facility] Hematocrit Auto (Bld) [Volum e fraction]Ordered By: Ethan Rodriguez on 04-17-2024 Automated blood hematocrit (percentage) 37.4 % 37-47 [facility] Hemoglobin measurementOrdere d By: Ethan Rodriguez on 04-17-2024 Hemoglobin measurement 10.9 g/dL Low 12.0-15.0 [facility] LDHon 04-17-2024 LDH 237 U/L Normal 84-246 [facility] Comment on above: Order Comment: 1 Result Comment: Slig ht Hemolysis, Result may be falsely increased. Performed By: #### L 100.0500, L100.4500, L503.5510, L504.2610, L500.4050, M100.6795, M100.6796 ####[facility] [address] [place], [address] Lactate dehydrogenase (LDH) measurementOrdered By: Ethan Rodriguez on 04-17-2024 Lactate dehydrogenase (LDH) measurement 237 U/L 84-246 [facility] MCV (RBC) [Entitic vol]Order ed By: Ethan Rodriguez on 04-17-2024 MCV (mean corpuscular volume) determination 93.5 fL 81-99 [facility] Manual differential comment Horace (Bld) [Interp]Ordered By: Ethan Rodriguez on 04-17-2024 Blood manual differential comment interpretation (narrative result) COMMENT [facility] Mean corpuscular hemoglobin (MCH) determinationOrdered By: Ethan Rodriguez on 04-17-2024 Mean corpuscular hemoglobin (MCH) determination 27.3 pg 27.0-32.0 [facility] Mean corpuscular hemoglobin concentration (MCHC) determinationOrdered By: Ethan Rodriguez on 04-17-2024 Mean corpuscular hemoglobin concentration (MCHC) determination 29.1 g/dL Low 32-36 [facility] Mean platelet volume determi nationOrdered By: Ethan Rodriguez on 04-17-2024 Mean platelet volume determination 9.8 fl 6.2-12.0 [facility] No Panel InformationOrdered By: Ethan Rodriguez on 04-17-2024 19 U/L 15-37 [facility] Platelet countOrdered By: Chester Rodriguez on 04-17-2024 Platelet count 92 K/mm3 Low 150-450 [facility] Potassium measurementOrdered By: Ethan Rodriguez on 04-17-2024 Potassium measurement 4.2 mmol/L 3.5-5.1 [facility] RBC Auto (Bld) [#/Vol]Ordere d By: Ethan Rodriguez on 04-17-2024 Automated blood erythrocyte count 4.00 M/mm3 Low 4.2-5.4 [facility] Serum anion gap measurementO rdered By: Ethan Rodriguez on 04-17-2024 Serum anion gap measurement 6 5-15 [facility] Serum globulin measurementOr dered By: Ethan Rodriguez on 04-17-2024 Serum globulin measurement 4.0 g/dL 2.2-4.2 [facility] Sodium levelOrdered By: Ethan Rodriguez on 04-17-2024 Sodium level 137 mmol/L 136-145 [facility] Total proteinOrdered By: Ava Rodriguez on 04-17-2024 Total protein 5.7 g/dL Low 6.4-8.2 [facility] Urea nitrogen [Mass/Vol]Orde red By: Ethan Rodriguez on 04-17-2024 Serum or plasma urea nitrogen measurement (mass/volume) 38 mg/dL High - [facility] Venous blood ammonia measure mentOrdered By: Ethan Rodriguez on 04-17-2024 Venous blood ammonia measurement 22.0 umol/L [facility] White blood cell (WBC) count Ordered By: Ethan Rodriguez on 04-17-2024 White blood cell (WBC) count 5.5 K/mm3 4.4-11.0 [facility] C. difficile Ql (Stl)Ordered By: Ethan Rodriguez on 04-16-2024 Stool Clostridium difficile detection Toxigenic C. difficile Abnormal [facility] Miscellaneous procedureOrder ed By: Angie Torres on 04-15-2024 Miscellaneous procedure See comment [facility] CBC-Complete Blood Cnt No Di ffon 04-12-2024 Erythrocyte distribution width (RBC) [Ratio] 17.7 % High 11.6-14.6 [facility] Comment on above: Order Comment: 103-1 Performed By: #### L 500.4050, L100.0500 ####[facility] [address] [place], [address] Hematocrit (Bld) [Volume fraction] 36.0 % Low 37-47 [facility] Comment on above: Order Comment: 103-1 Performed By: #### L 500.4050, L100.0500 ####[facility] [address] [place], [address] Hemoglobin (Bld) [Mass/Vol] 10.7 g/dL Low 12.0-15.0 [facility] Comment on above: Order Comment: 103-1 Performed By: #### L 500.4050, L100.0500 ####[facility] [address] [place], [address] MCH (RBC) [Entitic mass] 27.3 pg Normal 27.0-32.0 [facility] Comment on above: Order Comment: 103-1 Performed By: #### L 500.4050, L100.0500 ####[facility] [address] [place], [address] MCHC (RBC) [Mass/Vol] 29.7 g/dL Low 32-36 [facility] Comment on above: Order Comment: 103-1 Performed By: #### L 500.4050, L100.0500 ####[facility] [address] [place], [address] MCV (RBC) [Entitic vol] 91.8 fL Normal 81-99 [facility] Comment on above: Order Comment: 103-1 Performed By: #### L 500.4050, L100.0500 ####[facility] [address] [place], [address] Platelet mean volume (Bld) [Entitic vol] 9.2 fL Normal 6.2-12.0 [facility] Comment on above: Order Comment: 103-1 Performed By: #### L 500.4050, L100.0500 ####[facility] [address] [place], [address] Platelets (Bld) [#/Vol] 133 10*3/uL Low 150-450 [facility] Comment on above: Order Comment: 103-1 Performed By: #### L 500.4050, L100.0500 ####[facility] [address] [place], [address] RBC (Bld) [#/Vol] 3.92 10*6/uL Low 4.2-5.4 [facility] Comment on above: Order Comment: 103-1 Performed By: #### L 500.4050, L100.0500 ####[facility] [address] [place], [address] RDW SD 59.2 fl High 35.1-43.9 [facility] Comment on above: Order Comment: 103-1 Performed By: #### L 500.4050, L100.0500 ####[facility] [address] [place], [address] WBC (Bld) [#/Vol] 11.4 10*3/uL High 4.4-11.0 [facility] Comment on above: Order Comment: 103-1 Performed By: #### L 500.4050, L100.0500 ####[facility] [address] [place], [address] Comprehensive Metabolic Prof vamaty 04-12-2024 Albumin [Mass/Vol] 1.7 g/dL Low 3.2-5.0 [facility] Comment on above: Order Comment: 103-1 Performed By: #### L 500.4050, L100.0500 ####[facility] [address] [place], [address] Albumin/Globulin [Mass ratio] 0.4 {ratio} Low 0.9-2.4 [facility] Comment on above: Order Comment: 103-1 Performed By: #### L 500.4050, L100.0500 ####[facility] [address] [place], [address] ALK P 60 U/L Normal 45-117 [facility] Comment on above: Order Comment: 103-1 Performed By: #### L 500.4050, L100.0500 ####[facility] [address] [place], [address] ALT [Catalytic activity/Vol] 10 U/L Low 13-56 [facility] Comment on above: Order Comment: 103-1 Performed By: #### L 500.4050, L100.0500 ####[facility] [address] [place], [address] AST [Catalytic activity/Vol] 13 U/L Low 15-37 [facility] Comment on above: Order Comment: 103-1 Performed By: #### L 500.4050, L100.0500 ####[facility] [address] [place], [address] Bilirubin [Mass/Vol] 0.40 mg/dL Normal 0.20-1.00 [facility] Comment on above: Order Comment: 103-1 Result Comment: For patients on eltrombopag therapy, use of Dimension [place] TBIL is not recommended. Performed By: #### L 500.4050, L100.0500 ####[facility] [address] [place], [address] BUN/CRE 22.6 RATIO High 10-20 [facility] Comment on above: Order Comment: 103-1 Performed By: #### L 500.4050, L100.0500 ####[facility] [address] [place], [address] CA,Total 7.8 mg/dL Low 8.5-10.1 [facility] Comment on above: Order Comment: 103-1 Performed By: #### L 500.4050, L100.0500 ####[facility] [address] [place], [address] Chloride [Moles/Vol] 102 mmol/L Normal 98-107 [facility] Comment on above: Order Comment: 103-1 Performed By: #### L 500.4050, L100.0500 ####[facility] [address] [place], [address] CO2 [Moles/Vol] 28.0 mmol/L Normal 21.0-32.0 [facility] Comment on above: Order Comment: Performed By: #### L 500.4050, L100.0500 ####[facility] [address] [place], [address] Creatinine [Mass/Vol] 2.35 mg/dL High 0.55-1.02 [facility] Comment on above: Order Comment: Result Comment: The validity of the calculated GFR GFRAA in patients over70 years has not been determined. Clinical correlation isessential. Performed By: #### L 500.4050, L100.0500 ####[facility] [address] [place], [address] EST GFR - AA 27 mL/min Low >60 [facility] Comment on above: Order Comment: Result Comment: Afri can [place] Citizen GFR Calc Performed By: #### L 500.4050, L100.0500 ####[facility] [address] [place], [address] GAP 6 Normal 5-15 [facility] Comment on above: Order Comment: Performed By: #### L 500.4050, L100.0500 ####[facility] [address] [place], [address] GFR/1.73 sq M.predicted among non-blacks MDRD (S/P/Bld) [Vol rate/Area] 22 mL/min/{1.73_m2} Low >60 [facility] Comment on above: Order Comment: Result Comment: Non- GFR Calc Performed By: #### L 500.4050, L100.0500 ####[facility] [address] [place], [address] Globulin (S) [Mass/Vol] 4.0 g/dL Normal 2.2-4.2 [facility] Comment on above: Order Comment: 103-1 Performed By: #### L 500.4050, L100.0500 ####[facility] [address] [place], [address] Glucose [Mass/Vol] 88 mg/dL Normal 74-106 [facility] Comment on above: Order Comment: 103-1 Performed By: #### L 500.4050, L100.0500 ####[facility] [address] [place], [address] Potassium [Moles/Vol] 4.0 mmol/L Normal 3.5-5.1 [facility] Comment on above: Order Comment: 103-1 Performed By: #### L 500.4050, L100.0500 ####[facility] [address] [place], [address] Sodium [Moles/Vol] 136 mmol/L Normal 136-145 [facility] Comment on above: Order Comment: 103-1 Performed By: #### L 500.4050, L100.0500 ####[facility] [address] [place], [address] T PROT 5.7 g/dL Low 6.4-8.2 [facility] Comment on above: Order Comment: 103-1 Performed By: #### L 500.4050, L100.0500 ####[facility] [address] [place], [address] Urea nitrogen [Mass/Vol] 53 mg/dL High 7-18 [facility] Comment on above: Order Comment: 103-1 Performed By: #### L 500.4050, L100.0500 ####[facility] [address] [place], [address] Urine Cultureon 04-12-2024 [facility] Presumptive C albica ns [place] Count 11,000-25,000 Normal [facility] Comment on above: Performed By: #### M 100.2200 ####[facility] [address] [place], [address] Abdomen/Pelvis without Conto n 04-11-2024 Abdomen/Pelvis without Cont Normal [facility] Basic Metabolic Profile (BMP )on 04-11-2024 BUN/CRE 18.3 RATIO Normal 10-20 [facility] Comment on above: Performed By: #### L 509.7000, L100.0100, L500.2500 ####[facility] [address] [place], [address] CA,Total 7.6 mg/dL Low 8.5-10.1 [facility] Comment on above: Performed By: #### L 509.7000, L100.0100, L500.2500 ####[facility] [address] [place], [address] Chloride [Moles/Vol] 100 mmol/L Normal 98-107 [facility] Comment on above: Performed By: #### L 509.7000, L100.0100, L500.2500 ####[facility] [address] [place], [address] CO2 [Moles/Vol] 31.0 mmol/L Normal 21.0-32.0 [facility] Comment on above: Performed By: #### L 509.7000, L100.0100, L500.2500 ####[facility] [address] [place], [address] Creatinine [Mass/Vol] 2.13 mg/dL High 0.55-1.02 [facility] Comment on above: Result Comment: The validity of the calculated GFR GFRAA in patients over70 years has not been determined. Clinical correlation isessential. Performed By: #### L 509.7000, L100.0100, L500.2500 ####[facility] [address] [place], [address] ECRCL 23.69 ml/min Normal [facility] Comment on above: Performed By: #### L 509.7000, L100.0100, L500.2500 ####[facility] [address] [place], [address] EST GFR - AA 30 mL/min Low >60 [facility] Comment on above: Result Comment: Afri can [place] Citizen GFR Calc Performed By: #### L 509.7000, L100.0100, L500.2500 ####[facility] [address] [place], [address] GAP 5 Normal 5-15 [facility] Comment on above: Performed By: #### L 509.7000, L100.0100, L500.2500 ####[facility] [address] [place], [address] GFR/1.73 sq M.predicted among non-blacks MDRD (S/P/Bld) [Vol rate/Area] 25 mL/min/{1.73_m2} Low >60 [facility] Comment on above: Result Comment: Non- GFR Calc Performed By: #### L 509.7000, L100.0100, L500.2500 ####[facility] [address] [place], [address] Glucose [Mass/Vol] 87 mg/dL Normal 74-106 [facility] Comment on above: Performed By: #### L 509.7000, L100.0100, L500.2500 ####[facility] [address] [place], [address] Potassium [Moles/Vol] 3.9 mmol/L Normal 3.5-5.1 [facility] Comment on above: Performed By: #### L 509.7000, L100.0100, L500.2500 ####[facility] [address] [place], [address] Sodium [Moles/Vol] 137 mmol/L Normal 136-145 [facility] Comment on above: Performed By: #### L 509.7000, L100.0100, L500.2500 ####[facility] [address] [place], [address] Urea nitrogen [Mass/Vol] 39 mg/dL High 7-18 [facility] Comment on above: Performed By: #### L 509.7000, L100.0100, L500.2500 ####[facility] [address] [place], [address] CBC W/Diff, Automatedon 03-29 PLT EST ADEQUATE Normal ADEQ [facility] Comment on above: Performed By: #### L 509.7000, L100.0100, L500.2500 ####[facility] [address] [place], [address] RED CELL MORPH NORM C+C Normal NORM C C [facility] Comment on above: Performed By: #### L 509.7000, L100.0100, L500.2500 ####[facility] [address] [place], [address] SMEAR COMMENT SCANNED Normal [facility] Comment on above: Result Comment: LEFT SHIFT: BANDS PRESENT 2+ Performed By: #### L 509.7000, L100.0100, L500.2500 ####[facility] [address] [place], [address] Chest 1 View (Portable)on Chest 1 View (Portable) Normal [facility] Emergency Department Summary on 04-11-2024 Emergency Department Summary Normal [facility] M100.678on 04-11-2024 M100.678 Pending SARS-CoV-2 (COVID 19) Negative INFLUENZA A Negative INFLUENZA B Negative RSV PCR Negative Normal [facility] Comment on above: Performed By: #### M 100.678 ####[facility] [address] [place], [address] Procalcitoninon 04-11-2024 Procalcitonin 0.62 ng/mL High 0.00-0.09 [facility] Comment on above: Result Comment: A pr [...] Performed By: #### L 509.7000, L100.0100, L500.2500 ####[facility] [address] [facility] [place], [address] Urinalysis, Completeon 04-11 BACTERIA 1+ /hpf Normal None Seen [facility] Comment on above: Order Comment: COLOR OF URINE MAY AFFECT DIPSTICK RESULTS.PRIMER POWDER BLENDER WET TO SPECIFY Performed By: #### L 400.0001 ####[facility] [address] [facility]. [facility] [address] RBC 0-5 SEEN Normal 0-5 [facility] Comment on above: Order Comment: COLOR OF URINE MAY AFFECT DIPSTICK RESULTS.PRIMER POWDER BLENDER WET TO SPECIFY Performed By: #### L 400.0001 ####[facility] [address] [facility] [place], [address] WBC 10-25 SEEN Normal 0-5 [facility] Comment on above: Order Comment: COLOR OF URINE MAY AFFECT DIPSTICK RESULTS.PRIMER POWDER BLENDER WET TO SPECIFY Performed By: #### L 400.0001 ####[facility] [address] [place], [address] EPI,SQUAMOUS 0 SEEN Normal 5-10 [facility] Comment on above: Order Comment: COLOR OF URINE MAY AFFECT DIPSTICK RESULTS.PRIMER POWDER BLENDER WET TO SPECIFY Performed By: #### L 400.0001 ####[facility] [address] [place], [address] Mucus Ql (Urine sed) 0 SEEN Normal [facility] Comment on above: Order Comment: COLOR OF URINE MAY AFFECT DIPSTICK RESULTS.PRIMER POWDER BLENDER WET TO SPECIFY Performed By: #### L 400.0001 ####[facility] [address] [place], [address] Basic Metabolic Profile (BMP )on 04-04-2024 BUN/CRE 11.5 RATIO Normal 10-20 [facility] Comment on above: Order Comment: 103.1 Performed By: #### L 500.2500, L100.0500 ####[facility] [address] [place], [address] CA,Total 8.1 mg/dL Low 8.5-10.1 [facility] Comment on above: Order Comment: 103.1 Performed By: #### L 500.2500, L100.0500 ####[facility] [address] [place], [address] Chloride [Moles/Vol] 99 mmol/L Normal 98-107 [facility] Comment on above: Order Comment: 103.1 Performed By: #### L 500.2500, L100.0500 ####[facility] [address] [place], [address] CO2 [Moles/Vol] 33.0 mmol/L High 21.0-32.0 [facility] Comment on above: Order Comment: 103.1 Performed By: #### L 500.2500, L100.0500 ####[facility] [address] [place], [address] Creatinine [Mass/Vol] 1.65 mg/dL High 0.55-1.02 [facility] Comment on above: Order Comment: 103.1 Result Comment: The validity of the calculated GFR GFRAA in patients over70 years has not been determined. Clinical correlation isessential. Performed By: #### L 500.2500, L100.0500 ####[facility] [address] [place], [address] EST GFR - AA 41 mL/min Low >60 [facility] Comment on above: Order Comment: 103.1 Result Comment: Afri can [place] Citizen GFR Calc Performed By: #### L 500.2500, L100.0500 ####[facility] [address] [place], [address] GAP 5 Normal 5-15 [facility] Comment on above: Order Comment: 103.1 Performed By: #### L 500.2500, L100.0500 ####[facility] [address] [place], [address] GFR/1.73 sq M.predicted among non-blacks MDRD (S/P/Bld) [Vol rate/Area] 34 mL/min/{1.73_m2} Low >60 [facility] Comment on above: Order Comment: 103.1 Result Comment: Non- GFR Calc Performed By: #### L 500.2500, L100.0500 ####[facility] [address] [place], [address] Glucose [Mass/Vol] 61 mg/dL Low 74-106 [facility] Comment on above: Order Comment: 103.1 Performed By: #### L 500.2500, L100.0500 ####[facility] [address] [place], [address] Potassium [Moles/Vol] 3.7 mmol/L Normal 3.5-5.1 [facility] Comment on above: Order Comment: 103.1 Performed By: #### L 500.2500, L100.0500 ####[facility] [address] [place], [address] Sodium [Moles/Vol] 137 mmol/L Normal 136-145 [facility] Comment on above: Order Comment: 103.1 Performed By: #### L 500.2500, L100.0500 ####[facility] [address] [place], [address] Urea nitrogen [Mass/Vol] 19 mg/dL High 7-18 [facility] Comment on above: Order Comment: 103.1 Performed By: #### L 500.2500, L100.0500 ####[facility] [address] [place], [address] CBC-Complete Blood Cnt No Di ffon 04-04-2024 Erythrocyte distribution width (RBC) [Ratio] 16.9 % High 11.6-14.6 [facility] Comment on above: Order Comment: 103.1 Performed By: #### L 500.2500, L100.0500 ####[facility] [address] [place], [address] Hematocrit (Bld) [Volume fraction] 35.8 % Low 37-47 [facility] Comment on above: Order Comment: 103.1 Performed By: #### L 500.2500, L100.0500 ####[facility] [address] [place], [address] Hemoglobin (Bld) [Mass/Vol] 10.0 g/dL Low 12.0-15.0 [facility] Comment on above: Order Comment: 103.1 Performed By: #### L 500.2500, L100.0500 ####[facility] [address] [place], [address] MCH (RBC) [Entitic mass] 27.3 pg Normal 27.0-32.0 [facility] Comment on above: Order Comment: 103.1 Performed By: #### L 500.2500, L100.0500 ####[facility] [address] [place], [address] MCHC (RBC) [Mass/Vol] 27.9 g/dL Low 32-36 [facility] Comment on above: Order Comment: 103.1 Performed By: #### L 500.2500, L100.0500 ####[facility] [address] [place], [address] MCV (RBC) [Entitic vol] 97.8 fL Normal 81-99 [facility] [facility] Comment on above: Order Comment: 103.1 Performed By: #### L 500.2500, L100.0500 ####[facility] [address] [place], [address] Platelet mean volume (Bld) [Entitic vol] 9.9 fL Normal 6.2-12.0 [facility] Comment on above: Order Comment: 103.1 Performed By: #### L 500.2500, L100.0500 ####[facility] [address] [place], [address] Platelets (Bld) [#/Vol] 202 10*3/uL Normal 150-450 [facility] Comment on above: Order Comment: 103.1 Performed By: #### L 500.2500, L100.0500 ####[facility] [address] [place], [address] RBC (Bld) [#/Vol] 3.66 10*6/uL Low 4.2-5.4 [facility] Comment on above: Order Comment: 103.1 Performed By: #### L 500.2500, L100.0500 ####[facility] [address] [place], [address] RDW SD 61.3 fl High 35.1-43.9 [facility] Comment on above: Order Comment: 103.1 Performed By: #### L 500.2500, L100.0500 ####[facility] [address] [place], [address] WBC (Bld) [#/Vol] 11.4 10*3/uL High 4.4-11.0 [facility] Comment on above: Order Comment: 103.1 Performed By: #### L 500.2500, L100.0500 ####[facility] [address] [place], [address] Thyroid Stim Hormone (TSH)on 03-26-2024 TSH 20.500 uIU/mL High 0.358-3.74 0 [facility] Comment on above: Order Comment: 103.1 Performed By: #### L 501.9520 ####[facility] [address] [place], [address] OP NOTEon 03-22-2024 OP NOTE Normal [facility] Basic Metabolic Profile (BMP )on 03-21-2024 BUN/CRE 6.5 RATIO Low 03-17 [facility] Comment on above: Order Comment: 103.1 Performed By: #### L 500.2500, L100.0500 ####[facility] [address] [place], [address] CA,Total 9.1 mg/dL Normal 8.5-10.1 [facility] Comment on above: Order Comment: 103.1 Performed By: #### L 500.2500, L100.0500 ####[facility] [address] [place], [address] Chloride [Moles/Vol] 100 mmol/L Normal 98-107 [facility] Comment on above: Order Comment: 103.1 Performed By: #### L 500.2500, L100.0500 ####[facility] [address] [place], [address] CO2 [Moles/Vol] 30.0 mmol/L Normal 21.0-32.0 [facility] Comment on above: Order Comment: 103.1 Performed By: #### L 500.2500, L100.0500 ####[facility] [address] [place], [address] Creatinine [Mass/Vol] 1.85 mg/dL High 0.55-1.02 [facility] Comment on above: Order Comment: 103.1 Result Comment: The validity of the calculated GFR GFRAA in patients over70 years has not been determined. Clinical correlation isessential. Performed By: #### L 500.2500, L100.0500 ####[facility] [address] [place], [address] EST GFR - AA 36 mL/min Low >60 [facility] Comment on above: Order Comment: 103.1 Result Comment: Afri can [place] Citizen GFR Calc Performed By: #### L 500.2500, L100.0500 ####[facility] [address] [place], [address] GAP 3 Low 5-15 [facility] Comment on above: Order Comment: 103.1 Performed By: #### L 500.2500, L100.0500 ####[facility] [address] [place], [address] GFR/1.73 sq M.predicted among non-blacks MDRD (S/P/Bld) [Vol rate/Area] 29 mL/min/{1.73_m2} Low >60 [facility] Comment on above: Order Comment: 103.1 Result Comment: Non- GFR Calc Performed By: #### L 500.2500, L100.0500 ####[facility] [address] [place], [address] Glucose [Mass/Vol] 75 mg/dL Normal 74-106 [facility] Comment on above: Order Comment: 103.1 Performed By: #### L 500.2500, L100.0500 ####[facility] [address] [place], [address] Potassium [Moles/Vol] 4.5 mmol/L Normal 3.5-5.1 [facility] Comment on above: Order Comment: 103.1 Performed By: #### L 500.2500, L100.0500 ####[facility] [address] [place], [address] Sodium [Moles/Vol] 133 mmol/L Low 136-145 [facility] Comment on above: Order Comment: 103.1 Performed By: #### L 500.2500, L100.0500 ####[facility] [address] [place], [address] Urea nitrogen [Mass/Vol] 12 mg/dL Normal 7-18 [facility] Comment on above: Order Comment: 103.1 Performed By: #### L 500.2500, L100.0500 ####[facility] [address] [place], [address] CBC-Complete Blood Cnt No Di ffon 03-21-2024 Erythrocyte distribution width (RBC) [Ratio] 21.2 % High 11.6-14.6 [facility] Comment on above: Order Comment: 103.1 Performed By: #### L 500.2500, L100.0500 ####[facility] [address] [place], [address] Hematocrit (Bld) [Volume fraction] 27.9 % Low 37-47 [facility] Comment on above: Order Comment: 103.1 Performed By: #### L 500.2500, L100.0500 ####[facility] [address] [place], [address] Hemoglobin (Bld) [Mass/Vol] 8.0 g/dL Low 12.0-15.0 [facility] Comment on above: Order Comment: 103.1 Performed By: #### L 500.2500, L100.0500 ####[facility] [address] [place], [address] MCH (RBC) [Entitic mass] 29.3 pg Normal 27.0-32.0 [facility] Comment on above: Order Comment: 103.1 Performed By: #### L 500.2500, L100.0500 ####[facility] [address] [place], [address] MCHC (RBC) [Mass/Vol] 28.7 g/dL Low 32-36 [facility] Comment on above: Order Comment: 103.1 Performed By: #### L 500.2500, L100.0500 ####[facility] [address] [place], [address] MCV (RBC) [Entitic vol] 102.2 fL High 81-99 [facility] Comment on above: Order Comment: 103.1 Performed By: #### L 500.2500, L100.0500 ####[facility] [address] [place], [address] Platelet mean volume (Bld) [Entitic vol] 9.9 fL Normal 6.2-12.0 [facility] Comment on above: Order Comment: 103.1 Performed By: #### L 500.2500, L100.0500 ####[facility] [address] [place], [address] Platelets (Bld) [#/Vol] 189 10*3/uL Normal 150-450 [facility] Comment on above: Order Comment: 103.1 Performed By: #### L 500.2500, L100.0500 ####[facility] [address] [place], [address] RBC (Bld) [#/Vol] 2.73 10*6/uL Low 4.2-5.4 [facility] Comment on above: Order Comment: 103.1 Performed By: #### L 500.2500, L100.0500 ####[facility] [address] [place], [address] RDW SD 77.0 fl High 35.1-43.9 [facility] Comment on above: Order Comment: 103.1 Performed By: #### L 500.2500, L100.0500 ####[facility] [address] [place], [address] WBC (Bld) [#/Vol] 5.7 10*3/uL Normal 4.4-11.0 [facility] Comment on above: Order Comment: 103.1 Performed By: #### L 500.2500, L100.0500 ####[facility] [address] [place], [address] Disch Summon --2023 Disch Summ Normal [facility] BASIC METABOLIC PANELon - Anion gap [Moles/Vol] 10 mmol/L Normal 10-20 [facility] Comment on above: Order Comment: [facility] has implemented the eGFR calculation approach that does not have a coefficient for race that conforms to the NKF-ASN Task Force Recommendations. Performed By: #### 4 6124 ####[facility] [address] [place] [address] Glenn Gudino M.D. [id number] Calcium [Mass/Vol] 8.3 mg/dL Low 8.4-10.2 [facility] Comment on above: Order Comment: [facility] has implemented the eGFR calculation approach that does not have a coefficient for race that conforms to the NKF-ASN Task Force Recommendations. Performed By: #### 4 6124 ####[facility] [address] [place] [address] Glenn Gudino M.D. [id number] Chloride [Moles/Vol] 98 mmol/L Normal 98-108 [facility] Comment on above: Order Comment: [facility] has implemented the eGFR calculation approach that does not have a coefficient for race that conforms to the NKF-ASN Task Force Recommendations. Performed By: #### 4 6124 ####[facility] [address] [place] [address] Glenn Gudino M.D. [id number] Creatinine [Mass/Vol] 1.32 mg/dL High 0.60-1.10 [facility] Comment on above: Order Comment: [facility] has implemented the eGFR calculation approach that does not have a coefficient for race that conforms to the NKF-ASN Task Force Recommendations. Performed By: #### 4 6124 ####[facility] [address] [place] [address] Glenn Gudino M.D. [id number] EGFR 46 mL/min/1.73 m2 Low >=60 [facility] Comment on above: Order Comment: [facility] has implemented the eGFR calculation approach that does not have a coefficient for race that conforms to the NKF-ASN Task Force Recommendations. Result Comment: Joi mated GFR was calculated using the 2020 CKD-EPI creatinine equation. Performed By: #### 4 6124 ####[facility] [address] [place] [address] Glenn Gudino M.D. [id number] Glucose [Mass/Vol] 76 mg/dL Normal 65-99 [facility] Comment on above: Order Comment: [facility] has implemented the eGFR calculation approach that does not have a coefficient for race that conforms to the NKF-ASN Task Force Recommendations. Performed By: #### 4 6124 ####[facility] [address] [place] [address] Glenn Gudino M.D. [id number] HCO3 (Bld) [Moles/Vol] 30 mmol/L Normal 21-32 [facility] Comment on above: Order Comment: [facility] has implemented the eGFR calculation approach that does not have a coefficient for race that conforms to the NKF-ASN Task Force Recommendations. Performed By: #### 4 6124 ####[facility] [address] [place] [address] Glenn Gudino M.D. [id number] Potassium [Moles/Vol] 4.3 mmol/L Normal 3.5-5.1 [facility] Comment on above: Order Comment: [facility] has implemented the eGFR calculation approach that does not have a coefficient for race that conforms to the NKF-ASN Task Force Recommendations. Result Comment: Slig htly Hemolyzed Performed By: #### 4 6124 ####[facility] [address] [place] [address] Glenn Gudino M.D. [id number] Sodium [Moles/Vol] 134 mmol/L Low 135-145 [facility] Comment on above: Order Comment: [facility] has implemented the eGFR calculation approach that does not have a coefficient for race that conforms to the NKF-ASN Task Force Recommendations. Performed By: #### 4 6124 ####[facility] [address] [place] [address] Glenn Gudino M.D. [id number] Urea nitrogen [Mass/Vol] 12 mg/dL Normal 8-25 [facility] Comment on above: Order Comment: [facility] has implemented the eGFR calculation approach that does not have a coefficient for race that conforms to the NKF-ASN Task Force Recommendations. Performed By: #### 4 6124 ####[facility] [address] [place] [address] Glenn Gudino M.D. [id number] Urea nitrogen/Creatinine [Mass ratio] 9.1 mg/mg Low 10.0-20.0 [facility] Comment on above: Order Comment: [facility] has implemented the eGFR calculation approach that does not have a coefficient for race that conforms to the NKF-ASN Task Force Recommendations. Performed By: #### 4 6106 ####[facility] [address] [place], [place] [address] Glenn Gudino M.D. [id number] CBCon 03-19-2024 AUTO NRBC 0.0 % Normal [facility] Comment on above: Performed By: #### 4 [id number] ####[facility] [address] [place] [address] Glenn Gudino M.D. [id number] AUTO NRBC ABS COUNT 0.00 K/mcL Normal 0.00-0.00 [facility] Comment on above: Performed By: #### 4 [id number] ####[facility] [address] [place] [address] Glenn Gudino M.D. [id number] Erythrocyte distribution width (RBC) [Ratio] 21.2 % High 11.6-14.8 [facility] Comment on above: Performed By: #### 4 [id number] ####[facility] [address] [place] [address] Glenn Gudino M.D. [id number] Hematocrit (Bld) [Volume fraction] 27.5 % Low 36.0-46.0 [facility] Comment on above: Performed By: #### 4 [id number] ####[facility] [address] [place] [address] Glenn Gudino M.D. [id number] Hemoglobin (Bld) [Mass/Vol] 8.3 g/dL Low 12.0-16.0 [facility] Comment on above: Performed By: #### 4 [id number] ####[facility] [address] [place] [address] Glenn Gudino M.D. [id number] MCH (RBC) [Entitic mass] 29.9 pg Normal 26.0-34.0 [facility] Comment on above: Performed By: #### 4 [id number] ####[facility] [address] [place], [place] [address] Glenn Gudino M.D. [id number] MCV (RBC) [Entitic vol] 98.9 fL Normal 80.0-100.0 [facility] Comment on above: Performed By: #### 4 [id number] ####[facility] [address] [place], [place] [address] Glenn Gudino M.D. [id number] MEAN CORPUSCULAR HEMOGLOBIN CONC 30.2 g/dL Low 31.0-37.0 [facility] Comment on above: Performed By: #### 4 [id number] ####[facility] [address] [place], [place] [address] Glenn Gudino M.D. [id number] Platelet mean volume (Bld) [Entitic vol] 9.8 fL Normal 9.4-12.4 [facility] Comment on above: Performed By: #### 4 [id number] ####[facility] [address] [place] [address] Glenn Gudino M.D. [id number] Platelets (Bld) [#/Vol] 156 10*3/uL Normal 150-400 [facility] Comment on above: Performed By: #### 4 [id number] ####[facility] [address] [place], [place] [address] Glenn Gudino M.D. [id number] RBC (Bld) [#/Vol] 2.78 10*6/uL Low 4.00-5.20 [facility] Comment on above: Performed By: #### 4 [id number] ####[facility] [address] [place], [place] [address] Glenn Gudino M.D. [id number] WBC (Bld) [#/Vol] 6.81 10*3/uL Normal 4.50-11.00 [facility] Comment on above: Performed By: #### 4 [id number] ####[facility] [address] [place] [address] Glenn Gudino M.D. [id number] BASIC METABOLIC PANELon 10-2 Anion gap [Moles/Vol] 11 mmol/L Normal 10-20 [facility] Comment on above: Order Comment: [facility] has implemented the eGFR calculation approach that does not have a coefficient for race that conforms to the NKF-ASN Task Force Recommendations. Performed By: #### 4 6124 ####[facility] [address] [place] [address]28[address] Glenn Gudino M.D. [id number] Calcium [Mass/Vol] 8.6 mg/dL Normal 8.4-10.2 [facility] Comment on above: Order Comment: [facility] has implemented the eGFR calculation approach that does not have a coefficient for race that conforms to the NKF-ASN Task Force Recommendations. Performed By: #### 4 6124 ####[facility] [address] [place], [place] [address] Glenn Gudino M.D. [id number] Chloride [Moles/Vol] 97 mmol/L Low 98-108 [facility] Comment on above: Order Comment: [facility] has implemented the eGFR calculation approach that does not have a coefficient for race that conforms to the NKF-ASN Task Force Recommendations. Performed By: #### 4 6124 ####[facility] [address] [place] [address] Glenn Gudino M.D. [id number] Creatinine [Mass/Vol] 2.55 mg/dL High 0.60-1.10 [facility] Comment on above: Order Comment: [facility] has implemented the eGFR calculation approach that does not have a coefficient for race that conforms to the NKF-ASN Task Force Recommendations. Performed By: #### 4 6124 ####[facility] [address] [place] [address] Glenn Gudino M.D. [id number] EGFR 21 mL/min/1.73 m2 Low >=60 [facility] Comment on above: Order Comment: [facility] has implemented the eGFR calculation approach that does not have a coefficient for race that conforms to the NKF-ASN Task Force Recommendations. Result Comment: Joi mated GFR was calculated using the 2020 CKD-EPI creatinine equation. Performed By: #### 4 6124 ####[facility] [address] [place] [address]1998 Glenn Gudino M.D. [id number] Glucose [Mass/Vol] 84 mg/dL Normal 65-99 [facility] Comment on above: Order Comment: [facility] has implemented the eGFR calculation approach that does not have a coefficient for race that conforms to the NKF-ASN Task Force Recommendations. Performed By: #### 4 6124 ####[facility] [address] [place] [address] Glenn Gudino M.D. [id number] HCO3 (Bld) [Moles/Vol] 29 mmol/L Normal 21-32 [facility] Comment on above: Order Comment: [facility] has implemented the eGFR calculation approach that does not have a coefficient for race that conforms to the NKF-ASN Task Force Recommendations. Performed By: #### 4 6124 ####[facility] [address] [place] [address] Glenn Gudino M.D. [id number] Potassium [Moles/Vol] 4.2 mmol/L Normal 3.5-5.1 [facility] Comment on above: Order Comment: [facility] has implemented the eGFR calculation approach that does not have a coefficient for race that conforms to the NKF-ASN Task Force Recommendations. Performed By: #### 4 6124 ####[facility] [address] [place] [address] Glenn Gudino M.D. [id number] Sodium [Moles/Vol] 133 mmol/L Low 135-145 [facility] Comment on above: Order Comment: [facility] has implemented the eGFR calculation approach that does not have a coefficient for race that conforms to the NKF-ASN Task Force Recommendations. Performed By: #### 4 6124 ####[facility] [address] [place], [place] [address] Glenn Gudino M.D. [id number] Urea nitrogen [Mass/Vol] 22 mg/dL Normal 8-25 [facility] Comment on above: Order Comment: [facility] has implemented the eGFR calculation approach that does not have a coefficient for race that conforms to the NKF-ASN Task Force Recommendations. Performed By: #### 4 6124 ####[facility] [address] [place], [place] [address] Glenn Gudino M.D. [id number] Urea nitrogen/Creatinine [Mass ratio] 8.6 mg/mg Low 10.0-20.0 [facility] Comment on above: Order Comment: [facility] has implemented the eGFR calculation approach that does not have a coefficient for race that conforms to the NKF-ASN Task Force Recommendations. Performed By: #### 4 6124 ####[facility] [address] [place], [place] [address] Glenn Gudino M.D. [id number] CBCon 03-18-2024 AUTO NRBC 0.0 % Normal [facility] Comment on above: Performed By: #### 4 [id number] ####[facility] [address] [place] [address] Glenn Gudino M.D. [id number] AUTO NRBC ABS COUNT 0.00 K/mcL Normal 0.00-0.00 [facility] Comment on above: Performed By: #### 4 [id number] ####[facility] [address] [place], [place] [address] Glenn Gudino M.D. [id number] Erythrocyte distribution width (RBC) [Ratio] 20.8 % High 11.6-14.8 [facility] Comment on above: Performed By: #### 4 [id number] ####[facility] [address] [place], [place] [address] Glenn Gudino M.D. [id number] Hematocrit (Bld) [Volume fraction] 26.6 % Low 36.0-46.0 [facility] Comment on above: Performed By: #### 4 [id number] ####[facility] [address] [place] [address] Glenn Gudino M.D. [id number] Hemoglobin (Bld) [Mass/Vol] 8.1 g/dL Low 12.0-16.0 [facility] Comment on above: Performed By: #### 4 [id number] ####[facility] [address] [place] [address] Glenn Gudino M.D. [id number] MCH (RBC) [Entitic mass] 29.9 pg Normal 26.0-34.0 [facility] Comment on above: Performed By: #### 4 [id number] ####[facility] [address] [place], [place] [address] Glenn Gudino M.D. [id number] MCV (RBC) [Entitic vol] 98.2 fL Normal 80.0-100.0 [facility] Comment on above: Performed By: #### 4 [id number] ####[facility] [address] [place], [place] [address] Glenn Gudino M.D. [id number] MEAN CORPUSCULAR HEMOGLOBIN CONC 30.5 g/dL Low 31.0-37.0 [facility] Comment on above: Performed By: #### 4 [id number] ####[facility] [address] [place], [place] [address] Glenn Gudino M.D. [id number] Platelet mean volume (Bld) [Entitic vol] 9.6 fL Normal 9.4-12.4 [facility] Comment on above: Performed By: #### 4 [id number] ####[facility] [address] [place], [place] [address] 680[address] Glenn Gudino M.D. [id number] Platelets (Bld) [#/Vol] 167 10*3/uL Normal 150-400 [facility] Comment on above: Performed By: #### 4 [id number] ####[facility] [address] [place] [address] 29191 Glenn Gudino M.D. [id number] RBC (Bld) [#/Vol] 2.71 10*6/uL Low 4.00-5.20 [facility] Comment on above: Performed By: #### 4 [id number] ####[facility] [address] [place] [address] 63883 Glenn Gudino M.D. [id number] WBC (Bld) [#/Vol] 6.74 10*3/uL Normal 4.50-11.00 [facility] Comment on above: Performed By: #### 4 [id number] ####[facility] [address] [place] [address] 65710 Glenn Gudino M.D. [id number] BASIC METABOLIC PANELon 10-2 0-2023 Anion gap [Moles/Vol] 12 mmol/L Normal 10-20 [facility] Comment on above: Order Comment: [facility] has implemented the eGFR calculation approach that does not have a coefficient for race that conforms to the NKF-ASN Task Force Recommendations. Performed By: #### 4 [id number] ####[facility] [address] [place] [address] 34662 Glenn Gudino M.D. [id number] Calcium [Mass/Vol] 8.3 mg/dL Low 8.4-10.2 [facility] Comment on above: Order Comment: [facility] has implemented the eGFR calculation approach that does not have a coefficient for race that conforms to the NKF-ASN Task Force Recommendations. Performed By: #### 4 [id number] ####[facility] [address] [place] [address] 34404 Glenn Gudino M.D. [id number] Chloride [Moles/Vol] 95 mmol/L Low 98-108 [facility] Comment on above: Order Comment: [facility] has implemented the eGFR calculation approach that does not have a coefficient for race that conforms to the NKF-ASN Task Force Recommendations. Performed By: #### 4 [id number] ####[facility] [address] [place] [address] 28930 Glenn Gudino M.D. [id number] Creatinine [Mass/Vol] 1.69 mg/dL High 0.60-1.10 [facility] Comment on above: Order Comment: [facility] has implemented the eGFR calculation approach that does not have a coefficient for race that conforms to the NKF-ASN Task Force Recommendations. Performed By: #### 4 [id number] ####[facility] [address] [place] [address] 11160 Glenn Gudino M.D. [id number] EGFR 34 mL/min/1.73 m2 Low >=60 [facility] Comment on above: Order Comment: [facility] has implemented the eGFR calculation approach that does not have a coefficient for race that conforms to the NKF-ASN Task Force Recommendations. Result Comment: Joi mated GFR was calculated using the 2020 CKD-EPI creatinine equation. Performed By: #### 4 [id number] ####[facility] [address] [place] [address] 22354 Glenn Gudino M.D. [id number] Glucose [Mass/Vol] 112 mg/dL High 65-99 [facility] Comment on above: Order Comment: [facility] has implemented the eGFR calculation approach that does not have a coefficient for race that conforms to the NKF-ASN Task Force Recommendations. Performed By: #### 4 6124 ####[facility] [address] [place] [address] 38953 Glenn Gudino M.D. [id number] HCO3 (Bld) [Moles/Vol] 28 mmol/L Normal 21-32 [facility] Comment on above: Order Comment: [facility] has implemented the eGFR calculation approach that does not have a coefficient for race that conforms to the NKF-ASN Task Force Recommendations. Performed By: #### 4 6124 ####[facility] [address] [place] [address] 94485 Glenn Gudino M.D. [id number] Potassium [Moles/Vol] 3.9 mmol/L Normal 3.5-5.1 [facility] Comment on above: Order Comment: [facility] has implemented the eGFR calculation approach that does not have a coefficient for race that conforms to the NKF-ASN Task Force Recommendations. Result Comment: Slig htly Hemolyzed Performed By: #### 4 [id number] ####[facility] [address] [place] [address] 54359 Glenn Gudino M.D. [id number] Sodium [Moles/Vol] 131 mmol/L Low 135-145 [facility] Comment on above: Order Comment: [facility] has implemented the eGFR calculation approach that does not have a coefficient for race that conforms to the NKF-ASN Task Force Recommendations. Performed By: #### 4 6124 ####[facility] [address] [place] [address] 90226 Glenn Gudino M.D. [id number] Urea nitrogen [Mass/Vol] 16 mg/dL Normal 8-25 [facility] Comment on above: Order Comment: [facility] has implemented the eGFR calculation approach that does not have a coefficient for race that conforms to the NKF-ASN Task Force Recommendations. Performed By: #### 4 [id number] ####[facility] [address] [place], [place] [address] Glenn Gudino M.D. [id number] Urea nitrogen/Creatinine [Mass ratio] 9.5 mg/mg Low 10.0-20.0 [facility] Comment on above: Order Comment: [facility] has implemented the eGFR calculation approach that does not have a coefficient for race that conforms to the NKF-ASN Task Force Recommendations. Performed By: #### 4 [id number] ####[facility] [address] [place], [place] [address] Glenn Gudino M.D. [id number] CBCon 03-17-2024 AUTO NRBC 0.0 % Normal [facility] Comment on above: Performed By: #### 4 [id number] ####[facility] [address] [place] [address] Glenn Gudino M.D. [id number] AUTO NRBC ABS COUNT 0.00 K/mcL Normal 0.00-0.00 [facility] Comment on above: Performed By: #### 4 [id number] ####[facility] [address] [place], [place] [address] Glenn Gudino M.D. [id number] Erythrocyte distribution width (RBC) [Ratio] 20.9 % High 11.6-14.8 [facility] Comment on above: Performed By: #### 4 [id number] ####[facility] [address] [place], [place] [address] Glenn Gudino M.D. [id number] Hematocrit (Bld) [Volume fraction] 24.7 % Low 36.0-46.0 [facility] Comment on above: Performed By: #### 4 5239 ####[facility] [address] [place] [address] 63892 Glenn Gudino M.D. [id number] Hemoglobin (Bld) [Mass/Vol] 7.5 g/dL Low 12.0-16.0 [facility] Comment on above: Performed By: #### 4 5231 ####[facility] [address] [place] [address] 70892 Glenn Gudino M.D. [id number] MCH (RBC) [Entitic mass] 29.1 pg Normal 26.0-34.0 [facility] Comment on above: Performed By: #### 4 [id number] ####[facility] [address] [place], [place] [address] Glenn Gudino M.D. [id number] MCV (RBC) [Entitic vol] 95.7 fL Normal 80.0-100.0 [facility] Comment on above: Performed By: #### 4 [id number] ####[facility] [address] [place] [address] Glenn Gudino M.D. [id number] MEAN CORPUSCULAR HEMOGLOBIN CONC 30.4 g/dL Low 31.0-37.0 [facility] Comment on above: Performed By: #### 4 [id number] ####[facility] [address] [place], [place] [address] Glenn Gudino M.D. [id number] Platelet mean volume (Bld) [Entitic vol] 9.4 fL Normal 9.4-12.4 [facility] Comment on above: Performed By: #### 4 [id number] ####[facility] [address] [place], [place] [address] Glenn Gudino M.D. [id number] Platelets (Bld) [#/Vol] 164 10*3/uL Normal 150-400 [facility] Comment on above: Performed By: #### 4 [id number] ####[facility] [address] [place] [address] 77053 Glenn Gudino M.D. [id number] RBC (Bld) [#/Vol] 2.58 10*6/uL Low 4.00-5.20 [facility] Comment on above: Performed By: #### 4 [id number] ####[facility] [address] [place] [address] 54374 Glenn Gudino M.D. [id number] WBC (Bld) [#/Vol] 6.69 10*3/uL Normal 4.50-11.00 [facility] Comment on above: Performed By: #### 4 [id number] ####[facility] [address] [place] [address] 35117 Glenn Gudino M.D. [id number] BASIC METABOLIC PANELon 10- Anion gap [Moles/Vol] 15 mmol/L Normal 10-20 [facility] Comment on above: Order Comment: [facility] has implemented the eGFR calculation approach that does not have a coefficient for race that conforms to the NKF-ASN Task Force Recommendations. Performed By: #### 4 [id number] ####[facility] [address] [place] [address] 57660 Glenn Gudino M.D. [id number] Calcium [Mass/Vol] 8.5 mg/dL Normal 8.4-10.2 [facility] Comment on above: Order Comment: [facility] has implemented the eGFR calculation approach that does not have a coefficient for race that conforms to the NKF-ASN Task Force Recommendations. Performed By: #### 4 [id number] ####[facility] [address] [place] [address] 38894 Glenn Gudino M.D. [id number] Chloride [Moles/Vol] 97 mmol/L Low 98-108 [facility] Comment on above: Order Comment: [facility] has implemented the eGFR calculation approach that does not have a coefficient for race that conforms to the NKF-ASN Task Force Recommendations. Performed By: #### 4 [id number] ####[facility] [address] [place] [address] 20732 Glenn Gudino M.D. [id number] Creatinine [Mass/Vol] 2.74 mg/dL High 0.60-1.10 [facility] Comment on above: Order Comment: [facility] has implemented the eGFR calculation approach that does not have a coefficient for race that conforms to the NKF-ASN Task Force Recommendations. Performed By: #### 4 6182 ####[facility] [address] [place], [place] [address] Glenn Gudino M.D. [id number] EGFR 19 mL/min/1.73 m2 Low >=60 [facility] Comment on above: Order Comment: [facility] has implemented the eGFR calculation approach that does not have a coefficient for race that conforms to the NKF-ASN Task Force Recommendations. Result Comment: [facility] GFR was calculated using the 2020 CKD-EPI creatinine equation. Performed By: #### 4 [id number] ####[facility] [address] [place], [place] [address] Glenn Gudino M.D. [id number] Glucose [Mass/Vol] 84 mg/dL Normal 65-99 [facility] Comment on above: Order Comment: [facility] has implemented the eGFR calculation approach that does not have a coefficient for race that conforms to the NKF-ASN Task Force Recommendations. Performed By: #### 4 [id number] ####[facility] [address] [place], [place] [address] Glenn Gudino M.D. [id number] HCO3 (Bld) [Moles/Vol] 27 mmol/L Normal 21-32 [facility] Comment on above: Order Comment: [facility] has implemented the eGFR calculation approach that does not have a coefficient for race that conforms to the NKF-ASN Task Force Recommendations. Performed By: #### 4 6124 ####[facility] [address] [place], [place] [address] Glenn Gudino M.D. [id number] Potassium [Moles/Vol] 4.5 mmol/L Normal 3.5-5.1 [facility] Comment on above: Order Comment: [facility] has implemented the eGFR calculation approach that does not have a coefficient for race that conforms to the NKF-ASN Task Force Recommendations. Result Comment: Marisol leblanc Hemolyzed Performed By: #### 4 6124 ####[facility] [address] [place] [address] 19078 Glenn Gudino M.D. [id number] Sodium [Moles/Vol] 134 mmol/L Low 135-145 [facility] Comment on above: Order Comment: [facility] has implemented the eGFR calculation approach that does not have a coefficient for race that conforms to the NKF-ASN Task Force Recommendations. Performed By: #### 4 6124 ####[facility] [address] [place], [place] [address] Glenn Gudino M.D. [id number] Urea nitrogen [Mass/Vol] 32 mg/dL High 8-25 [facility] Comment on above: Order Comment: [facility] has implemented the eGFR calculation approach that does not have a coefficient for race that conforms to the NKF-ASN Task Force Recommendations. Performed By: #### 4 [id number] ####[facility] [address] [place] [address] 16503 Glenn Gudino M.D. [id number] Urea nitrogen/Creatinine [Mass ratio] 11.7 mg/mg Normal 10.0-20.0 [facility] Comment on above: Order Comment: [facility] has implemented the eGFR calculation approach that does not have a coefficient for race that conforms to the NKF-ASN Task Force Recommendations. Performed By: #### 4 6124 ####[facility] [address] [place] [address] 17623 Glenn Gudino M.D. [id number] PHOSPHORUSon 03-16-2024 Phosphate [Mass/Vol] 3.9 mg/dL Normal 2.8-4.1 [facility] Comment on above: Performed By: #### 4 6299 ####[facility] [address] [place] [address] 64659 Glenn Gudino M.D. [id number] BASIC METABOLIC PANELon 02-26 Anion gap [Moles/Vol] 14 mmol/L Normal 10-20 [facility] Comment on above: Order Comment: [facility] has implemented the eGFR calculation approach that does not have a coefficient for race that conforms to the NKF-ASN Task Force Recommendations. Performed By: #### 4 [id number] ####[facility] [address] [place] [address] 86090 Glenn Gudino M.D. [id number] Calcium [Mass/Vol] 8.3 mg/dL Low 8.4-10.2 [facility] Comment on above: Order Comment: [facility] has implemented the eGFR calculation approach that does not have a coefficient for race that conforms to the NKF-ASN Task Force Recommendations. Performed By: #### 4 6124 ####[facility] [address] [place] [address] 81265 Glenn Gudino M.D. [id number] Chloride [Moles/Vol] 96 mmol/L Low 98-108 [facility] Comment on above: Order Comment: [facility] has implemented the eGFR calculation approach that does not have a coefficient for race that conforms to the NKF-ASN Task Force Recommendations. Performed By: #### 4 [id number] ####[facility] [address] [place] [address] 89971 Glenn Gudino M.D. [id number] Creatinine [Mass/Vol] 2.29 mg/dL High 0.60-1.10 [facility] Comment on above: Order Comment: [facility] has implemented the eGFR calculation approach that does not have a coefficient for race that conforms to the NKF-ASN Task Force Recommendations. Performed By: #### 4 6124 ####[facility] [address] [place] [address] 46383 Glenn Gudino M.D. [id number] EGFR 24 mL/min/1.73 m2 Low >=60 [facility] Comment on above: Order Comment: [facility] has implemented the eGFR calculation approach that does not have a coefficient for race that conforms to the NKF-ASN Task Force Recommendations. Result Comment: Joi mated GFR was calculated using the 2020 CKD-EPI creatinine equation. Performed By: #### 4 [id number] ####[facility] [address] [place] [address] 22717 Glenn Gudino M.D. [id number] Glucose [Mass/Vol] 74 mg/dL Normal 65-99 [facility] Comment on above: Order Comment: [facility] has implemented the eGFR calculation approach that does not have a coefficient for race that conforms to the NKF-ASN Task Force Recommendations. Performed By: #### 4 6124 ####[facility] [address] [place], [place] [address] Glenn Gudino M.D. [id number] HCO3 (Bld) [Moles/Vol] 27 mmol/L Normal 21-32 [facility] Comment on above: Order Comment: [facility] has implemented the eGFR calculation approach that does not have a coefficient for race that conforms to the NKF-ASN Task Force Recommendations. Performed By: #### 4 [id number] ####[facility] [address] [place] [address] 32511 Glenn Gudino M.D. [id number] Potassium [Moles/Vol] 4.4 mmol/L Normal 3.5-5.1 [facility] Comment on above: Order Comment: [facility] has implemented the eGFR calculation approach that does not have a coefficient for race that conforms to the NKF-ASN Task Force Recommendations. Result Comment: Slig htly Hemolyzed Performed By: #### 4 6124 ####[facility] [address] [place] [address] 75101 Glenn Gudino M.D. [id number] Sodium [Moles/Vol] 133 mmol/L Low 135-145 [facility] Comment on above: Order Comment: [facility] has implemented the eGFR calculation approach that does not have a coefficient for race that conforms to the NKF-ASN Task Force Recommendations. Performed By: #### 4 [id number] ####[facility] [address] [place], [place] [address] Glenn Gudino M.D. [id number] Urea nitrogen [Mass/Vol] 23 mg/dL Normal 8-25 [facility] Comment on above: Order Comment: [facility] has implemented the eGFR calculation approach that does not have a coefficient for race that conforms to the NKF-ASN Task Force Recommendations. Performed By: #### 4 [id number] ####[facility] [address] [place], [place] [address] Glenn Gudino M.D. [id number] Urea nitrogen/Creatinine [Mass ratio] 10.0 mg/mg Normal 10.0-20.0 [facility] Comment on above: Order Comment: [facility] has implemented the eGFR calculation approach that does not have a coefficient for race that conforms to the NKF-ASN Task Force Recommendations. Performed By: #### 4 [id number] ####[facility] [address] [place], [place] [address] Glenn Gudino M.D. [id number] CBCon 03-15-2024 AUTO NRBC 0.0 % Normal [facility] Comment on above: Performed By: #### 4 [id number] ####[facility] [address] [place] [address] 87668 Glenn Gudino M.D. [id number] AUTO NRBC ABS COUNT 0.00 K/mcL Normal 0.00-0.00 [facility] Comment on above: Performed By: #### 4 [id number] ####[facility] [address] [place], [place] [address] Glenn Gudino M.D. [id number] Erythrocyte distribution width (RBC) [Ratio] 20.6 % High 11.6-14.8 [facility] Comment on above: Performed By: #### 4 [id number] ####[facility] [address] [place] [address] lGenn Gudino M.D. [id number] Hematocrit (Bld) [Volume fraction] 27.4 % Low 36.0-46.0 [facility] Comment on above: Performed By: #### 4 [id number] ####[facility] [address] [place] [address] Glenn Gudino M.D. [id number] Hemoglobin (Bld) [Mass/Vol] 8.7 g/dL Low 12.0-16.0 [facility] Comment on above: Performed By: #### 4 [id number] ####[facility] [address] [place] [address] Glenn Gudino M.D. [id number] MCH (RBC) [Entitic mass] 29.3 pg Normal 26.0-34.0 [facility] Comment on above: Performed By: #### 4 [id number] ####[facility] [address] [place], [place] [address] Glenn Gudino M.D. [id number] MCV (RBC) [Entitic vol] 92.3 fL Normal 80.0-100.0 [facility] Comment on above: Result Comment: Resu lts checked Performed By: #### 4 [id number] ####[facility] [address] [place], [place] [address] Glenn Gudino M.D. [id number] MEAN CORPUSCULAR HEMOGLOBIN CONC 31.8 g/dL Normal 31.0-37.0 [facility] Comment on above: Performed By: #### 4 5250 ####[facility] [address] [place], [place] [address] Glenn Gudino M.D. [id number] Platelet mean volume (Bld) [Entitic vol] 10.0 fL Normal 9.4-12.4 [facility] Comment on above: Performed By: #### 4 [id number] ####[facility] [address] [place] [address] 98070 Glenn Gudino M.D. [id number] Platelets (Bld) [#/Vol] 196 10*3/uL Normal 150-400 [facility] Comment on above: Performed By: #### 4 [id number] ####[facility] [address] [place] [address] 36030 Glenn Gudino M.D. [id number] RBC (Bld) [#/Vol] 2.97 10*6/uL Low 4.00-5.20 [facility] Comment on above: Performed By: #### 4 [id number] ####[facility] [address] [place], [place] [address] Glenn Gudino M.D. [id number] WBC (Bld) [#/Vol] 7.75 10*3/uL Normal 4.50-11.00 [facility] Comment on above: Performed By: #### 4 [id number] ####[facility] [address] [place] [address] 20746 Glenn Gudino M.D. [id number] MAGNESIUM LEVELon 03-15-2024 Magnesium [Mass/Vol] 1.7 mg/dL Normal 1.6-2.4 [facility] Comment on above: Performed By: #### 4 6109 ####[facility] [address] [place] [address] 74334 Glenn Gudino M.D. [id number] XR CHEST PA/APon 03-15-2024 XR CHEST PA/AP Normal [facility] Comment on above: Order Comment: Injur y/Trauma or Illness?:Illness/OtherHow long have you had these symptoms (acute/chronic)?:AcuteReason for exam?:follow upHistory of cancer?:uSurgeries, chemotherapy, or radiation?:uType of Exam?:Subsequent/Follow-upAdditional signs and symptoms?:. BASIC METABOLIC PANELon 02-26 Anion gap [Moles/Vol] 14 mmol/L Normal 10-20 [facility] Comment on above: Order Comment: [facility] has implemented the eGFR calculation approach that does not have a coefficient for race that conforms to the NKF-ASN Task Force Recommendations. Performed By: #### 4 [id number] ####[facility] [address] [place] [address] 25315 Glenn Gudino M.D. [id number] Calcium [Mass/Vol] 8.4 mg/dL Normal 8.4-10.2 [facility] Comment on above: Order Comment: [facility] has implemented the eGFR calculation approach that does not have a coefficient for race that conforms to the NKF-ASN Task Force Recommendations. Performed By: #### 4 6124 ####[facility] [address] [place] [address] 97859 Glenn Gudino M.D. [id number] Chloride [Moles/Vol] 99 mmol/L Normal 98-108 [facility] Comment on above: Order Comment: [facility] has implemented the eGFR calculation approach that does not have a coefficient for race that conforms to the NKF-ASN Task Force Recommendations. Performed By: #### 4 6124 ####[facility] [address] [place], [place] [address] Glenn Gudino M.D. [id number] Creatinine [Mass/Vol] 2.68 mg/dL High 0.60-1.10 [facility] Comment on above: Order Comment: [facility] has implemented the eGFR calculation approach that does not have a coefficient for race that conforms to the NKF-ASN Task Force Recommendations. Performed By: #### 4 6186 ####[facility] [address] [place], [place] [address] Glenn Gudino M.D. [id number] EGFR 20 mL/min/1.73 m2 Low >=60 [facility] Comment on above: Order Comment: [facility] has implemented the eGFR calculation approach that does not have a coefficient for race that conforms to the NKF-ASN Task Force Recommendations. Result Comment: Joi mated GFR was calculated using the 2020 CKD-EPI creatinine equation. Performed By: #### 4 6124 ####[facility] [address] [place], [place] [address] Glenn Gudino M.D. [id number] Glucose [Mass/Vol] 68 mg/dL Normal 65-99 [facility] Comment on above: Order Comment: [facility] has implemented the eGFR calculation approach that does not have a coefficient for race that conforms to the NKF-ASN Task Force Recommendations. Performed By: #### 4 6124 ####[facility] [address] [place], [place] [address] Glenn Gudino M.D. [id number] HCO3 (Bld) [Moles/Vol] 26 mmol/L Normal 21-32 [facility] Comment on above: Order Comment: [facility] has implemented the eGFR calculation approach that does not have a coefficient for race that conforms to the NKF-ASN Task Force Recommendations. Performed By: #### 4 6124 ####[facility] [address] [place], [place] [address] Glenn Gudino M.D. [id number] Potassium [Moles/Vol] 4.9 mmol/L Normal 3.5-5.1 [facility] Comment on above: Order Comment: [facility] has implemented the eGFR calculation approach that does not have a coefficient for race that conforms to the NKF-ASN Task Force Recommendations. Result Comment: Slig htly Hemolyzed Performed By: #### 4 6124 ####[facility] [address] [place], [place] [address] Glenn Gudino M.D. [id number] Sodium [Moles/Vol] 134 mmol/L Low 135-145 [facility] Comment on above: Order Comment: [facility] has implemented the eGFR calculation approach that does not have a coefficient for race that conforms to the NKF-ASN Task Force Recommendations. Performed By: #### 4 6124 ####[facility] [address] [place], [place] [address] Glenn Gudino M.D. [id number] Urea nitrogen [Mass/Vol] 23 mg/dL Normal 8-25 [facility] Comment on above: Order Comment: [facility] has implemented the eGFR calculation approach that does not have a coefficient for race that conforms to the NKF-ASN Task Force Recommendations. Performed By: #### 4 6124 ####[facility] [address] [place], [place] [address] Glenn Gudino M.D. [id number] Urea nitrogen/Creatinine [Mass ratio] 8.6 mg/mg Low 10.0-20.0 [facility] Comment on above: Order Comment: [facility] has implemented the eGFR calculation approach that does not have a coefficient for race that conforms to the NKF-ASN Task Force Recommendations. Performed By: #### 4 6124 ####[facility] [address] [place] [address] 89438 Glenn Gudino M.D. [id number] CBCon 03-14-2024 AUTO NRBC 0.0 % Normal [facility] Comment on above: Performed By: #### 4 [id number] ####[facility] [address] [place] [address] 25315 Glenn Gudino M.D. [id number] AUTO NRBC ABS COUNT 0.00 K/mcL Normal 0.00-0.00 [facility] Comment on above: Performed By: #### 4 [id number] ####[facility] [address] [place], [place] [address] Glenn Gudino M.D. [id number] Erythrocyte distribution width (RBC) [Ratio] 19.3 % High 11.6-14.8 [facility] Comment on above: Performed By: #### 4 [id number] ####[facility] [address] [place] [address] 06088 Glenn Gudino M.D. [id number] Hematocrit (Bld) [Volume fraction] 23.0 % Low 36.0-46.0 [facility] Comment on above: Performed By: #### 4 [id number] ####[facility] [address] [place], [place] [address] Glenn Gudino M.D. [id number] Hemoglobin (Bld) [Mass/Vol] 6.7 g/dL Off scale low 12.0-16.0 [facility] Comment on above: Result Comment: Resu lts called and read back verified by:.[id number] to [id number] @[id number] Performed By: #### 4 [id number] ####[facility] [address] [place], [place] [address] Glenn Gudino M.D. [id number] MCH (RBC) [Entitic mass] 28.5 pg Normal 26.0-34.0 [facility] Comment on above: Performed By: #### 4 [id number] ####[facility] [address] [place], [place] [address] Glenn Gudino M.D. [id number] MCV (RBC) [Entitic vol] 97.9 fL Normal 80.0-100.0 [facility] Comment on above: Performed By: #### 4 [id number] ####[facility] [address] [place], [place] [address] Glenn Gudino M.D. [id number] MEAN CORPUSCULAR HEMOGLOBIN CONC 29.1 g/dL Low 31.0-37.0 [facility] Comment on above: Performed By: #### 4 [id number] ####[facility] [address] [place] [address] 40005 Glenn Gudino M.D. [id number] Platelet mean volume (Bld) [Entitic vol] 9.4 fL Normal 9.4-12.4 [facility] Comment on above: Performed By: #### 4 [id number] ####[facility] [address] [place], [place] [address] Glenn Gudino M.D. [id number] Platelets (Bld) [#/Vol] 181 10*3/uL Normal 150-400 [facility] Comment on above: Performed By: #### 4 [id number] ####[facility] [address] [place], [place] [address] Glenn Gudino M.D. [id number] RBC (Bld) [#/Vol] 2.35 10*6/uL Low 4.00-5.20 [facility] Comment on above: Performed By: #### 4 [id number] ####[facility] [address] [place], [place] [address] Glenn Gudino M.D. [id number] WBC (Bld) [#/Vol] 6.70 10*3/uL Normal 4.50-11.00 [facility] Comment on above: Performed By: #### 4 [id number] ####[facility] [address] [place] [address] 72469 Glenn Gudino M.D. [id number] HEMOGLOBIN AND HEMATOCRITon 03-14-2024 Hematocrit (Bld) [Volume fraction] 27.8 % Low 36.0-46.0 [facility] Comment on above: Performed By: #### 4 6909 ####[facility] [address] [place] [address] 92035 Glenn Gudino M.D. [id number] Hemoglobin (Bld) [Mass/Vol] 8.5 g/dL Low 12.0-16.0 [facility] Comment on above: Result Comment: Resu lts checked Performed By: #### 4 6909 ####[facility] [address] [place], [place] [address] Glenn Gudino M.D. [id number] MAGNESIUM LEVELon 03-14-2024 Magnesium [Mass/Vol] 1.8 mg/dL Normal 1.6-2.4 [facility] Comment on above: Performed By: #### 4 6109 ####[facility] [address] [place], [place] [address] Glenn Gudino M.D. [id number] NT PRO BNPon 03-14-2024 Natriuretic peptide B (Bld) [Mass/Vol] 36640 pg/mL High 0-300 [facility] Comment on above: Order Comment: Pride Study Cut-offsRule In:< /= 50 Years >450 pg/mL51 Years - 75 Years >900 pg/mL76 Years - 99 Years >1800 pg/mLRule Out:All patients <300 pg/mL Performed By: #### 4 7395 ####[facility] [address] [place], [place] [address] Glenn Gudino M.D. [id number] WOUND AEROBIC AND ANAEROBIC CULTUREon 03-14-2024 WOUND AEROBIC AND ANAEROBIC CULTURE CULTURE No Anaerobic Growth after 5 days Heavy Growth Normal Enteric Cherelle GRAM STAIN RESULT Moderate WBC Few Gram Positive Cocci Few Gram Negative Bacilli Normal [facility] Comment on above: Performed By: #### 4 4287 ####[facility] [address] [place], [place] [address] Glenn Gudino M.D. [id number] WOUND AFB CULTUREon 03-14-20 WOUND AFB CULTURE AFB CULTURE No Growth of Acid Fast Bacilli after 8 Weeks AFB STAIN (2018) No Acid Fast Bacilli Seen Normal [facility] Comment on above: Performed By: #### 4 4286 ####[facility] [address] [place], [place] [address] Glenn Gudino M.D. [id number] WOUND FUNGUS CULTUREon 03-14 WOUND FUNGUS CULTURE FUNGUS CULTURE No Fungus Isolated At 4 Weeks FUNGAL SMEAR No Fungal or Yeast Elements Normal [facility] Comment on above: Performed By: #### 4 4288 ####[facility] [address] [place] [address] 40908 Glenn Gudino M.D. [id number] BASIC METABOLIC PANELon 02-26 Anion gap [Moles/Vol] 11 mmol/L Normal 10-20 [facility] Comment on above: Order Comment: [facility] has implemented the eGFR calculation approach that does not have a coefficient for race that conforms to the NKF-ASN Task Force Recommendations. Performed By: #### 4 6124 ####[facility] [address] [place], [place] [address] Glenn Gudino M.D. [id number] Calcium [Mass/Vol] 8.4 mg/dL Normal 8.4-10.2 [facility] Comment on above: Order Comment: [facility] has implemented the eGFR calculation approach that does not have a coefficient for race that conforms to the NKF-ASN Task Force Recommendations. Performed By: #### 4 6124 ####[facility] [address] [place] [address] 86339 Glenn Gudino M.D. [id number] Chloride [Moles/Vol] 98 mmol/L Normal 98-108 [facility] Comment on above: Order Comment: [facility] has implemented the eGFR calculation approach that does not have a coefficient for race that conforms to the NKF-ASN Task Force Recommendations. Performed By: #### 4 6124 ####[facility] [address] [place] [address] 66989 Glenn Gudino M.D. [id number] Creatinine [Mass/Vol] 2.18 mg/dL High 0.60-1.10 [facility] Comment on above: Order Comment: [facility] has implemented the eGFR calculation approach that does not have a coefficient for race that conforms to the NKF-ASN Task Force Recommendations. Performed By: #### 4 6124 ####[facility] [address] [place] [address] 11225 Glenn Gudino M.D. [id number] EGFR 25 mL/min/1.73 m2 Low >=60 [facility] Comment on above: Order Comment: [facility] has implemented the eGFR calculation approach that does not have a coefficient for race that conforms to the NKF-ASN Task Force Recommendations. Result Comment: Joi mated GFR was calculated using the 2020 CKD-EPI creatinine equation. Performed By: #### 4 6124 ####[facility] [address] [place] [address] 78887 Glenn Gudino M.D. [id number] Glucose [Mass/Vol] 79 mg/dL Normal 65-99 [facility] Comment on above: Order Comment: [facility] has implemented the eGFR calculation approach that does not have a coefficient for race that conforms to the NKF-ASN Task Force Recommendations. Performed By: #### 4 6124 ####[facility] [address] [place] [address] 95303 Glenn Gudino M.D. [id number] HCO3 (Bld) [Moles/Vol] 29 mmol/L Normal 21-32 [facility] Comment on above: Order Comment: [facility] has implemented the eGFR calculation approach that does not have a coefficient for race that conforms to the NKF-ASN Task Force Recommendations. Performed By: #### 4 6124 ####[facility] [address] [place] [address] 54730 Glenn Gudino M.D. [id number] Potassium [Moles/Vol] 4.3 mmol/L Normal 3.5-5.1 [facility] Comment on above: Order Comment: [facility] has implemented the eGFR calculation approach that does not have a coefficient for race that conforms to the NKF-ASN Task Force Recommendations. Performed By: #### 4 6124 ####[facility] [address] [place] [address] 27364 Glenn Gudino M.D. [id number] Sodium [Moles/Vol] 134 mmol/L Low 135-145 [facility] Comment on above: Order Comment: [facility] has implemented the eGFR calculation approach that does not have a coefficient for race that conforms to the NKF-ASN Task Force Recommendations. Performed By: #### 4 6124 ####[facility] [address] [place] [address] 29507 Glenn Gudino M.D. [id number] Urea nitrogen [Mass/Vol] 16 mg/dL Normal 8-25 [facility] Comment on above: Order Comment: [facility] has implemented the eGFR calculation approach that does not have a coefficient for race that conforms to the NKF-ASN Task Force Recommendations. Performed By: #### 4 6124 ####[facility] [address] [place] [address] 92976 Glenn Gudino M.D. [id number] Urea nitrogen/Creatinine [Mass ratio] 7.3 mg/mg Low 10.0-20.0 [facility] Comment on above: Order Comment: [facility] has implemented the eGFR calculation approach that does not have a coefficient for race that conforms to the NKF-ASN Task Force Recommendations. Performed By: #### 4 6124 ####[facility] [address] [place] [address] 09703 Glenn Gudino M.D. [id number] CALCIUM, IONIZEDon CALCIUM IONIZED 4.6 mg/dL Normal 4.5-5.3 [facility] Comment on above: Performed By: #### 4 5190 ####[facility] [address] [place] [address] 24852 Glenn Gudino M.D. [id number] CBCon 03-13-2024 AUTO NRBC 0.0 % Normal [facility] Comment on above: Performed By: #### 4 [id number] ####[facility] [address] [place], [place] [address] Glenn Gudino M.D. [id number] AUTO NRBC ABS COUNT 0.00 K/mcL Normal 0.00-0.00 [facility] Comment on above: Performed By: #### 4 [id number] ####[facility] [address] [place] [address] Glenn Gudino M.D. [id number] Erythrocyte distribution width (RBC) [Ratio] 18.7 % High 11.6-14.8 [facility] Comment on above: Performed By: #### 4 [id number] ####[facility] [address] [place] [address] Glenn Gudino M.D. [id number] Hematocrit (Bld) [Volume fraction] 22.1 % Low 36.0-46.0 [facility] Comment on above: Performed By: #### 4 [id number] ####[facility] [address] [place], [place] [address] Glenn Gudino M.D. [id number] Hemoglobin (Bld) [Mass/Vol] 7.0 g/dL Low 12.0-16.0 [facility] Comment on above: Performed By: #### 4 [id number] ####[facility] [address] [place], [place] [address] Glenn Gudino M.D. [id number] MCH (RBC) [Entitic mass] 30.2 pg Normal 26.0-34.0 [facility] Comment on above: Performed By: #### 4 [id number] ####[facility] [address] [place], [place] [address] Glenn Gudino M.D. [id number] MCV (RBC) [Entitic vol] 95.3 fL Normal 80.0-100.0 [facility] Comment on above: Performed By: #### 4 [id number] ####[facility] [address] [place] [address] 41684 Glenn Gudino M.D. [id number] MEAN CORPUSCULAR HEMOGLOBIN CONC 31.7 g/dL Normal 31.0-37.0 [facility] Comment on above: Performed By: #### 4 [id number] ####[facility] [address] [place] [address] Glenn Gudino M.D. [id number] Platelet mean volume (Bld) [Entitic vol] 9.7 fL Normal 9.4-12.4 [facility] Comment on above: Performed By: #### 4 [id number] ####[facility] [address] [place] [address] Glenn Gudino M.D. [id number] Platelets (Bld) [#/Vol] 187 10*3/uL Normal 150-400 [facility] Comment on above: Performed By: #### 4 [id number] ####[facility] [address] [place], [place] [address] Glenn Gudino M.D. [id number] RBC (Bld) [#/Vol] 2.32 10*6/uL Low 4.00-5.20 [facility] Comment on above: Performed By: #### 4 [id number] ####[facility] [address] [place], [place] [address] Glenn Gudino M.D. [id number] WBC (Bld) [#/Vol] 5.89 10*3/uL Normal 4.50-11.00 [facility] Comment on above: Performed By: #### 4 [id number] ####[facility] [address] [place] [address] 26501 Glenn Gudino M.D. [id number] CONSULTon 03-13-2024 CONSULT Normal [facility] HEPATITIS B SURFACE ANTIGENo n 03-13-2024 HEPATITIS B SURFACE ANTIGEN Positive Abnormal Negative [facility] Comment on above: Order Comment: Test performed using Adele ANNALISE immunoassay system Performed By: #### 4 4081 ####[facility] [address] [place], [place] [address] Glenn Gudino M.D. [id number] MAGNESIUM LEVELon 03-13-2024 Magnesium [Mass/Vol] 1.6 mg/dL Normal 1.6-2.4 [facility] Comment on above: Performed By: #### 4 6109 ####[facility] [address] [place], [place] [address] Glenn Gudino M.D. [id number] PHOSPHORUSon 03-13-2024 Phosphate [Mass/Vol] 2.8 mg/dL Normal 2.8-4.1 [facility] Comment on above: Performed By: #### 4 6299 ####[facility] [address] [place], [place] [address] Glenn Gudino M.D. [id number] PROTEIN / CREATININE RATIO, URINEon 03-13-2024 CREATININE,UR 62.4 mg/dL Normal [facility] Comment on above: Performed By: #### 4 7136 ####[facility] [address] [place], [place] [address] Glenn Gudino M.D. [id number] Protein (U) [Mass/Vol] 225.4 mg/dL Normal [facility] Comment on above: Performed By: #### 4 7136 ####[facility] [address] [place], [place] [address] Glenn Gudino M.D. [id number] PROTEIN CREATININE RATIO 3.6 ratio High 0.0-0.2 [facility] Comment on above: Performed By: #### 4 7136 ####[facility] [address] [place], [place] [address] Glenn Gudino M.D. [id number] URINALYSISon 03-13-2024 AMORPHOUS CRYSTALS Many Abnormal None Seen , Rare [facility] Comment on above: Order Comment: Micro scopic examination is performed on all urinalysis samples and only positive findings are reported. The test for blood on the chemical analytic portion of urinalysis may also be positive due to hemoglobinuria and myoglobinuria and if red blood cells are present they are quantified by microscopic examination. Performed By: #### 4 6625 ####[facility] [address] [place] [address] Glenn Gudino M.D. [id number] BACTERIA, URINE Rare Abnormal None Seen [facility] Comment on above: Order Comment: Micro scopic examination is performed on all urinalysis samples and only positive findings are reported. The test for blood on the chemical analytic portion of urinalysis may also be positive due to hemoglobinuria and myoglobinuria and if red blood cells are present they are quantified by microscopic examination. Performed By: #### 4 6625 ####[facility] [address] [place] [address] Glenn Gudino M.D. [id number] BILIRUBIN, URINE Negative Normal Negative [facility] Comment on above: Order Comment: Micro scopic examination is performed on all urinalysis samples and only positive findings are reported. The test for blood on the chemical analytic portion of urinalysis may also be positive due to hemoglobinuria and myoglobinuria and if red blood cells are present they are quantified by microscopic examination. Performed By: #### 4 6625 ####[facility] [address] [place] [address] 03445 Glenn Gudino M.D. [id number] BLOOD, URINE Small Abnormal Negative [facility] Comment on above: Order Comment: Micro scopic examination is performed on all urinalysis samples and only positive findings are reported. The test for blood on the chemical analytic portion of urinalysis may also be positive due to hemoglobinuria and myoglobinuria and if red blood cells are present they are quantified by microscopic examination. Performed By: #### 4 [id number] ####[facility] [address] [place], [place] [address] Glenn Gudino M.D. [id number] CALCIUM OXALATE CRYSTALS Many Abnormal None Seen [facility] Comment on above: Order Comment: Micro scopic examination is performed on all urinalysis samples and only positive findings are reported. The test for blood on the chemical analytic portion of urinalysis may also be positive due to hemoglobinuria and myoglobinuria and if red blood cells are present they are quantified by microscopic examination. Performed By: #### 4 6625 ####[facility] [address] [place] [address] Glenn Gudino M.D. [id number] Clarity (U) Cloudy Abnormal Clear [facility] Comment on above: Order Comment: Micro scopic examination is performed on all urinalysis samples and only positive findings are reported. The test for blood on the chemical analytic portion of urinalysis may also be positive due to hemoglobinuria and myoglobinuria and if red blood cells are present they are quantified by microscopic examination. Performed By: #### 4 [id number] ####[facility] [address] [place] [address] Glenn Gudino M.D. [id number] Color (U) Yellow Normal Colorless, Yellow [facility] Comment on above: Order Comment: Micro scopic examination is performed on all urinalysis samples and only positive findings are reported. The test for blood on the chemical analytic portion of urinalysis may also be positive due to hemoglobinuria and myoglobinuria and if red blood cells are present they are quantified by microscopic examination. Performed By: #### 4 [id number] ####[facility] [address] [place] [address] Glenn Gudino M.D. [id number] Glucose Ql (U) Negative Normal Negative [facility] Comment on above: Order Comment: Micro scopic examination is performed on all urinalysis samples and only positive findings are reported. The test for blood on the chemical analytic portion of urinalysis may also be positive due to hemoglobinuria and myoglobinuria and if red blood cells are present they are quantified by microscopic examination. Performed By: #### 4 [id number] ####[facility] [address] [place] [address] Glenn Gudino M.D. [id number] Ketones Ql (U) Negative Normal Negative [facility] Comment on above: Order Comment: Micro scopic examination is performed on all urinalysis samples and only positive findings are reported. The test for blood on the chemical analytic portion of urinalysis may also be positive due to hemoglobinuria and myoglobinuria and if red blood cells are present they are quantified by microscopic examination. Performed By: #### 4 [id number] ####[facility] [address] [place] [address] Glenn Gudino M.D. [id number] Leukocyte esterase Test strip Ql (U) Large Abnormal Negative [facility] Comment on above: Order Comment: Micro scopic examination is performed on all urinalysis samples and only positive findings are reported. The test for blood on the chemical analytic portion of urinalysis may also be positive due to hemoglobinuria and myoglobinuria and if red blood cells are present they are quantified by microscopic examination. Performed By: #### 4 [id number] ####[facility] [address] [place] [address] Glenn Gudino M.D. [id number] MUCUS, URINE Many Abnormal None Seen, Rare [facility] Comment on above: Order Comment: Micro scopic examination is performed on all urinalysis samples and only positive findings are reported. The test for blood on the chemical analytic portion of urinalysis may also be positive due to hemoglobinuria and myoglobinuria and if red blood cells are present they are quantified by microscopic examination. Performed By: #### 4 [id number] ####[facility] [address] [place] [address] Glenn Gudino M.D. [id number] NITRITE, URINE Negative Normal Negative [facility] Comment on above: Order Comment: Micro scopic examination is performed on all urinalysis samples and only positive findings are reported. The test for blood on the chemical analytic portion of urinalysis may also be positive due to hemoglobinuria and myoglobinuria and if red blood cells are present they are quantified by microscopic examination. Performed By: #### 4 [id number] ####[facility] [address] [place] [address] Glenn Gudino M.D. [id number] pH (U) 8.5 [pH] High 5.0-7.0 [facility] Comment on above: Order Comment: Micro scopic examination is performed on all urinalysis samples and only positive findings are reported. The test for blood on the chemical analytic portion of urinalysis may also be positive due to hemoglobinuria and myoglobinuria and if red blood cells are present they are quantified by microscopic examination. Performed By: #### 4 [id number] ####[facility] [address] [place] [address] Glenn Gudino M.D. [id number] PROTEIN, URINE >=300 Abnormal Negative [facility] Comment on above: Order Comment: Micro scopic examination is performed on all urinalysis samples and only positive findings are reported. The test for blood on the chemical analytic portion of urinalysis may also be positive due to hemoglobinuria and myoglobinuria and if red blood cells are present they are quantified by microscopic examination. Performed By: #### 4 [id number] ####[facility] [address] [place] [address] Glenn Gudino M.D. [id number] RBC LM.HPF (Urine sed) [#/Area] 2 /[HPF] Normal 0-3 [facility] Comment on above: Order Comment: Micro scopic examination is performed on all urinalysis samples and only positive findings are reported. The test for blood on the chemical analytic portion of urinalysis may also be positive due to hemoglobinuria and myoglobinuria and if red blood cells are present they are quantified by microscopic examination. Performed By: #### 4 [id number] ####[facility] [address] [place] [address] Glenn Gudino M.D. [id number] Specific gravity (U) [Rel density] 1.014 Normal 1.005-1.02 5 [facility] Comment on above: Order Comment: Micro scopic examination is performed on all urinalysis samples and only positive findings are reported. The test for blood on the chemical analytic portion of urinalysis may also be positive due to hemoglobinuria and myoglobinuria and if red blood cells are present they are quantified by microscopic examination. Performed By: #### 4 [id number] ####[facility] [address] [place], [place] [address] Glenn Gudino M.D. [id number] SQUAMOUS EPITHELIAL 1 /hpf Normal 0-4 [facility] Comment on above: Order Comment: Micro scopic examination is performed on all urinalysis samples and only positive findings are reported. The test for blood on the chemical analytic portion of urinalysis may also be positive due to hemoglobinuria and myoglobinuria and if red blood cells are present they are quantified by microscopic examination. Performed By: #### 4 [id number] ####[facility] [address] [place] [address] Glenn Gudino M.D. [id number] UROBILINOGEN, URINE <2.0 Normal <2.0 [facility] Comment on above: Order Comment: Micro scopic examination is performed on all urinalysis samples and only positive findings are reported. The test for blood on the chemical analytic portion of urinalysis may also be positive due to hemoglobinuria and myoglobinuria and if red blood cells are present they are quantified by microscopic examination. Performed By: #### 4 [id number] ####[facility] [address] [place], [place] [address] Glenn Gudino M.D. [id number] WBC CLUMPS, URINE Rare Abnormal None Seen [facility] Comment on above: Order Comment: Micro scopic examination is performed on all urinalysis samples and only positive findings are reported. The test for blood on the chemical analytic portion of urinalysis may also be positive due to hemoglobinuria and myoglobinuria and if red blood cells are present they are quantified by microscopic examination. Performed By: #### 4 [id number] ####[facility] [address] [place], [place] [address] Glenn Gudino M.D. [id number] WBC LM.HPF (Urine sed) [#/Area] 23 /[HPF] High 0-5 [facility] Comment on above: Order Comment: Micro scopic examination is performed on all urinalysis samples and only positive findings are reported. The test for blood on the chemical analytic portion of urinalysis may also be positive due to hemoglobinuria and myoglobinuria and if red blood cells are present they are quantified by microscopic examination. Performed By: #### 4 [id number] ####[facility] [address] [place], [place] [address] Glenn Gudino M.D. [id number] US DOPPLER SEGMENTAL ARTERIA L LEGS BILATERALon 03-13-2024 US DOPPLER SEGMENTAL ARTERIAL LEGS BILATERAL Normal [facility] ANTIBODY IDENTIFICATION-Con 03-12-2024 ANTIBODY IDENTIFICATION-C Normal [facility] Comment on above: Performed By: #### 4 [id number] ####[facility] [address] [place] [address] Nurys Oneill MD [id number] [facility] B12/FOLATEon 03-12-2024 Cobalamin (Vitamin B12) [Mass/Vol] 536 pg/mL Normal 232-1245 [facility] Comment on above: Performed By: #### 4 6967 ####[facility] [address] [place], [place] [address] Glenn Gudino M.D. [id number] FOLATE 19.1 ng/mL High 3.1-17.5 [facility] Comment on above: Result Comment: Defi cient <2.2Borderline 2.2 - 3.0Excessive >17.5 Performed By: #### 4 6973 ####[facility] [address] [place] [address] Glenn Gudino M.D. [id number] BASIC METABOLIC PANELon 02-26 Anion gap [Moles/Vol] 11 mmol/L Normal 10-20 [facility] Comment on above: Order Comment: [facility] has implemented the eGFR calculation approach that does not have a coefficient for race that conforms to the NKF-ASN Task Force Recommendations. Performed By: #### 4 6124 ####[facility] [address] [place] [address] Glenn Gudino M.D. [id number] Calcium [Mass/Vol] 8.3 mg/dL Low 8.4-10.2 [facility] Comment on above: Order Comment: [facility] has implemented the eGFR calculation approach that does not have a coefficient for race that conforms to the NKF-ASN Task Force Recommendations. Performed By: #### 4 6124 ####[facility] [address] [place] [address] Glenn Gudino M.D. [id number] Chloride [Moles/Vol] 98 mmol/L Normal 98-108 [facility] Comment on above: Order Comment: [facility] has implemented the eGFR calculation approach that does not have a coefficient for race that conforms to the NKF-ASN Task Force Recommendations. Performed By: #### 4 6124 ####[facility] [address] [place] [address] Glenn Gudino M.D. [id number] Creatinine [Mass/Vol] 1.88 mg/dL High 0.60-1.10 [facility] Comment on above: Order Comment: [facility] has implemented the eGFR calculation approach that does not have a coefficient for race that conforms to the NKF-ASN Task Force Recommendations. Performed By: #### 4 6124 ####[facility] [address] [place] [address] Glenn Gudino M.D. [id number] EGFR 30 mL/min/1.73 m2 Low >=60 [facility] Comment on above: Order Comment: [facility] has implemented the eGFR calculation approach that does not have a coefficient for race that conforms to the NKF-ASN Task Force Recommendations. Result Comment: Joi mated GFR was calculated using the 2020 CKD-EPI creatinine equation. Performed By: #### 4 6124 ####[facility] [address] [place] [address] Glenn Gudino M.D. [id number] Glucose [Mass/Vol] 75 mg/dL Normal 65-99 [facility] Comment on above: Order Comment: [facility] has implemented the eGFR calculation approach that does not have a coefficient for race that conforms to the NKF-ASN Task Force Recommendations. Performed By: #### 4 6124 ####[facility] [address] [place] [address] Glenn Gudino M.D. [id number] HCO3 (Bld) [Moles/Vol] 32 mmol/L Normal 21-32 [facility] Comment on above: Order Comment: [facility] has implemented the eGFR calculation approach that does not have a coefficient for race that conforms to the NKF-ASN Task Force Recommendations. Performed By: #### 4 6124 ####[facility] [address] [place] [address] Glenn Gudino M.D. [id number] Potassium [Moles/Vol] 4.2 mmol/L Normal 3.5-5.1 [facility] Comment on above: Order Comment: [facility] has implemented the eGFR calculation approach that does not have a coefficient for race that conforms to the NKF-ASN Task Force Recommendations. Performed By: #### 4 6124 ####[facility] [address] [place] [address] Glenn Gudino M.D. [id number] Sodium [Moles/Vol] 137 mmol/L Normal 135-145 [facility] Comment on above: Order Comment: [facility] has implemented the eGFR calculation approach that does not have a coefficient for race that conforms to the NKF-ASN Task Force Recommendations. Performed By: #### 4 6124 ####[facility] [address] [place] [address] Glenn Gudino M.D. [id number] Urea nitrogen [Mass/Vol] 12 mg/dL Normal 8-25 [facility] Comment on above: Order Comment: [facility] has implemented the eGFR calculation approach that does not have a coefficient for race that conforms to the NKF-ASN Task Force Recommendations. Performed By: #### 4 6124 ####[facility] [address] [place] [address] Glenn Gudino M.D. [id number] Urea nitrogen/Creatinine [Mass ratio] 6.4 mg/mg Low 10.0-20.0 [facility] Comment on above: Order Comment: [facility] has implemented the eGFR calculation approach that does not have a coefficient for race that conforms to the NKF-ASN Task Force Recommendations. Performed By: #### 4 6124 ####[facility] [address] [place] [address] Glenn Gudino M.D. [id number] CBC W/Diff, Automatedon 02-26 PATH REV Reviewed Normal [facility] Comment on above: Result Comment: Neut rophilic leukocytosis.Normocytic anemia.Clinical correlation necessary.Cuba Manley M.D. 03/12/24 AMENDED REPORT 03/12/24 1442 PATH REV previously reported as: September Performed By: #### L 100.0100, L500.2500 ####[facility] [id number] [place], [address] CBC WITH AUTO DIFFERENTIALon 03-12-2024 AUTO NRBC 0.0 % Normal [facility] Comment on above: Performed By: #### L [id number] ####[facility] [address] [place] [address] Glenn Gudino M.D. [id number] AUTO NRBC ABS COUNT 0.00 K/mcL Normal 0.00-0.00 [facility] Comment on above: Performed By: #### Hugh [id number] ####[facility] [address] [place] [address] Glenn Gudino M.D. [id number] Erythrocyte distribution width (RBC) [Ratio] 18.3 % High 11.6-14.8 [facility] Comment on above: Performed By: #### Hugh [id number] ####[facility] [address] [place] [address] Glenn Gudino M.D. [id number] Hematocrit (Bld) [Volume fraction] 23.7 % Low 36.0-46.0 [facility] Comment on above: Performed By: #### Hugh [id number] ####[facility] [address] [place] [address] Glenn Gudino M.D. [id number] Hemoglobin (Bld) [Mass/Vol] 7.0 g/dL Low 12.0-16.0 [facility] Comment on above: Performed By: #### Hugh [id number] ####[facility] [address] [place] [address] Glenn Gudino M.D. [id number] MCH (RBC) [Entitic mass] 28.7 pg Normal 26.0-34.0 [facility] Comment on above: Performed By: #### Hugh [id number] ####[facility] [address] [place] [address] Glenn Gudino M.D. [id number] MCV (RBC) [Entitic vol] 97.1 fL Normal 80.0-100.0 [facility] Comment on above: Performed By: #### Hugh [id number] ####[facility] [address] [place] [address] Glenn Gudino M.D. [id number] MEAN CORPUSCULAR HEMOGLOBIN CONC 29.5 g/dL Low 31.0-37.0 [facility] Comment on above: Performed By: #### L [id number] ####[facility] [address] [place], [place] [address] Glenn Gudino M.D. [id number] Platelet mean volume (Bld) [Entitic vol] 9.6 fL Normal 9.4-12.4 [facility] Comment on above: Performed By: #### L [id number] ####[facility] [address] [place], [place] [address] Glenn Gudino M.D. [id number] Platelets (Bld) [#/Vol] 180 10*3/uL Normal 150-400 [facility] Comment on above: Performed By: #### L [id number] ####[facility] [address] [place], [place] [address]Karma Gudino M.D. [id number] RBC (Bld) [#/Vol] 2.44 10*6/uL Low 4.00-5.20 [facility] Comment on above: Performed By: #### L [id number] ####[facility] [address] [place], [place] [address] Glenn Gudino M.D. [id number] WBC (Bld) [#/Vol] 5.26 10*3/uL Normal 4.50-11.00 [facility] Comment on above: Performed By: #### L [id number] ####[facility] [address] [place] [address]Karma Gudino M.D. [id number] COMPLEMENT DIRECT ANTIGLOBUL IN TESTon 03-12-2024 COMPLEMENT DIRECT ANTIGLOBULIN TEST Negative Normal [facility] Comment on above: Performed By: #### 4 [id number] ####[facility] [address] [place] [address] Nurys Oneill MD [id number] RMHTS CONSULTon 03-12-2024 CONSULT Normal [facility] CONSULT Normal [facility] ED Prov Noteon 03-12-2024 ED Prov Note Normal [facility] ELUTION-WAAon 03-12-2024 ELUTION-WAA Normal [facility] Comment on above: Performed By: #### 4 [id number] ####[facility] [address] [place] [address] Nurys Oneill MD [id number] RMHTS GIGGon 03-12-2024 GIGG Positive Normal [facility] Comment on above: Performed By: #### G IGG ####[facility] [place] [address] Nurys Oneill MD [id number] RMHTS H AND Ney 03-12-2024 H AND P Normal [facility] HEPATIC FUNCTION PANELon Albumin [Mass/Vol] 2.9 g/dL Low 3.2-5.2 [facility] Comment on above: Performed By: #### 4 [id number] ####[facility] [address] [place] [address] Glenn Gudino M.D. [id number] ALP [Catalytic activity/Vol] 52 U/L Normal 40-150 [facility] Comment on above: Performed By: #### 4 5866 ####[facility] [address] [place] [address] Glenn Gudino M.D. [id number] ALT < Normal 0-35 U/L [facility] Comment on above: Performed By: #### 4 [id number] ####[facility] [address] [place] [address] Glenn Gudino M.D. [id number] AST [Catalytic activity/Vol] 26 U/L Normal 0-35 U/L [facility] Comment on above: Performed By: #### 4 5866 ####[facility] [address] [place], [place] [address] Glenn Gudino M.D. [id number] Bilirubin [Mass/Vol] 0.4 mg/dL Normal 0.0-1.3 [facility] Comment on above: Performed By: #### 4 5866 ####[facility] [address] [place] [address] Glenn Gudino M.D. [id number] Bilirubin.indirect [Mass/Vol] 0.2 mg/dL Normal 0.0-0.4 [facility] Comment on above: Performed By: #### 4 [id number] ####[facility] [address] [place], [place] [address] Glenn Gudino M.D. [id number] Protein [Mass/Vol] 6.5 g/dL Normal 6.0-8.0 [facility] Comment on above: Performed By: #### 4 [id number] ####[facility] [address] [place], [place] [address] Glenn Gudino M.D. [id number] IRON STUDY WITH FERRITINon 1 Ferritin [Mass/Vol] 2720 ng/mL High 13-150 [facility] Comment on above: Performed By: #### 4 7645 ####[facility] [address] [place], [place] [address] Glenn Gudino M.D. [id number] Iron [Mass/Vol] 23 ug/dL Low 30-160 [facility] Comment on above: Performed By: #### 4 [id number] ####[facility] [address] [place], [place] [address] Glenn Gudino M.D. [id number] IRON SATURATION 22 % Normal 20-50 [facility] Comment on above: Performed By: #### 4 7657 ####[facility] [address] [place], [place] [address] Glenn Gudino M.D. [id number] TIBC (CALCULATED) 104 mcg/dL Low 225-430 [facility] Comment on above: Performed By: #### 4 7645 ####[facility] [address] [place] [address] Glenn Gudino M.D. [id number] LACTIC ACID, PLASMAon 2023 LACTIC ACID, PLASMA 0.8 mmol/L Normal 0.6-2.0 [facility] Comment on above: Performed By: #### 4 6053 ####[facility] [address] [place] [address] Glenn Gudino M.D. [id number] MANUAL DIFFERENTIALon 2023 BASOPHILS - ABS (DIFF) 0.00 K/mcL Normal 0.00-0.30 [facility] Comment on above: Performed By: #### 4 5456 ####[facility] [address] [place], [place] [address] Glenn Gudino M.D. [id number] BASOPHILS - REL (DIFF) 0.0 % Normal [facility] Comment on above: Performed By: #### 4 5456 ####[facility] [address] [place], [place] [address] Glenn Gudino M.D. [id number] EOSINOPHILS - ABS (DIFF) 0.00 K/mcL Normal 0.00-0.50 [facility] Comment on above: Performed By: #### 4 5415 ####[facility] [address] [place], [place] [address] Glenn Gudino M.D. [id number] EOSINOPHILS - REL (DIFF) 0.0 % Normal [facility] Comment on above: Performed By: #### 4 5400 ####[facility] [address] [place], [place] [address] Glnen Gudino M.D. [id number] LYMPHOCYTES - ABS (DIFF) 0.32 K/mcL Low 0.90-4.00 [facility] [facility] Comment on above: Performed By: #### 4 5465 ####[facility] [address] [place] [address] Glenn Gudino M.D. [id number] LYMPHOCYTES - REL (DIFF) 6.0 % Normal [facility] Comment on above: Performed By: #### 4 7412 ####[facility] [address] [place] [address] Glenn Gudino M.D. [id number] METAMYELOCYTES-REL (DIFF) 2.0 % Normal [facility] Comment on above: Performed By: #### 4 5487 ####[facility] [address] [place] [address] Glenn Gudino M.D. [id number] MONOCYTES - ABS (DIFF) 0.16 K/mcL Low 0.30-0.90 [facility] Comment on above: Performed By: #### 4 7878 ####[facility] [address] [place] [address] Glenn Gudino M.D. [id number] MONOCYTES - REL (DIFF) 3.0 % Normal [facility] Comment on above: Performed By: #### 4 3786 ####[facility] [address] [place] [address] Glenn Gudino M.D. [id number] MYELOCYTES RELATIVE PERCENT 1.0 % Normal [facility] Comment on above: Performed By: #### 4 1598 ####[facility] [address] [place] [address] Glenn Gudino M.D. [id number] NEUTROPHILS - ABS (DIFF) 4.79 K/mcL Normal 1.70-7.00 [facility] Comment on above: Result Comment: Left Shift Confirmed. Performed By: #### 4 5456 ####[facility] [address] [place], [place] [id number] Glenn Gudino M.D. [id number] NEUTROPHILS - REL (DIFF) 88.0 % Normal [facility] Comment on above: Performed By: #### 4 5456 ####[facility] [address] [place] [address] Glenn Gudino M.D. [id number] MORPHOLOGYon 03-12-2024 OVAL SCAN Few Normal [facility] Comment on above: Performed By: #### L AB295 ####[facility] [address] [place] [address] Glenn Gudino M.D. [id number] PLATELET ESTIMATE Normal Normal Normal [facility] Comment on above: Performed By: #### L AB295 ####[facility] [address] [place] [address] Glenn Gudino M.D. [id number] POLY SCAN Few Normal [facility] Comment on above: Performed By: #### L AB295 ####[facility] [address] [place] [address] Glenn Gudino M.D. [id number] RBC MORPH SCAN See Comment Normal [facility] Comment on above: Result Comment: RBC Indices confirmed with manual peripheral smear review. Performed By: #### L AB295 ####[facility] [address] [place], [place] [address] Glenn Gudino M.D. [id number] TEAR DROP CELL SCAN Few Normal [facility] Comment on above: Performed By: #### L AB295 ####[facility] [address] [place] [address] Glenn Gudino M.D. [id number] PERIPHERAL SMEAR REVIEW ([facility] ONLY)on 03-12-2024 SMEAR REVIEW See Comment Normal [facility] Comment on above: Result Comment: Smea r reviewed for possible immature cells. Performed By: #### C [id number] ####[facility] [address] [place] [address] Glenn Gudino M.D. [id number] RETICULOCYTEon 03-12-2024 IMMATURE RETIC FRACT 26.2 % High 2.3-15.9 [facility] Comment on above: Performed By: #### 4 6452 ####[facility] [address] [place] [address] Glenn Gudino M.D. [id number] RETIC HGB EQUIVALENT 30.4 PG Normal 27.7-38.2 [facility] Comment on above: Result Comment: The cut-off for RET-He established in our institution is 27.7-38.2 pg/RBC. A value below this range is highly suggestive of iron deficiency. At values above 38.2 pg/RBC, patients are unlikely to respond to additional iron therapy. Performed By: #### 4 6452 ####[facility] [address] [place] [address] Glenn Gudino M.D. [id number] RETICULOCYTE ABSOLUTE COUNT 0.088 M/mcL High 0.025-0.07 0 [facility] Comment on above: Performed By: #### 4 6452 ####[facility] [address] [place], [place] [address] Glenn Gudino M.D. [id number] RETICULOCYTE COUNT PCT 3.6 % Normal [facility] Comment on above: Performed By: #### 4 6452 ####[facility] [address] [place], [place] [address] Glenn Gudino M.D. [id number] TYPE AND SCREENon 03-12-2024 TYPE AND SCREEN ABORH: O Positive AB SCREEN: Positive EXPIRATION DATE: 03/15/2024 23:59 EST Normal [facility] Comment on above: Performed By: #### 4 6619 ####[facility] [address] [facility] [address] Nurys Oneill MD [id number] RMHTS URIC ACIDon 03-12-2024 Urate [Mass/Vol] 3.2 mg/dL Normal 2.4-7.0 [facility] Comment on above: Performed By: #### 4 6629 ####[facility] [address] [place], [place] [address] Glenn Gudino M.D. [id number] US DOPPLER SEGMENTAL ARTERIA L LEGS BILATERALon 03-12-2024 US DOPPLER SEGMENTAL ARTERIAL LEGS BILATERAL Normal [facility] XR CHEST PA/APon 03-12-2024 XR CHEST PA/AP Normal [facility] Comment on above: Order Comment: Injur y/Trauma or Illness?:Illness/OtherHow long have you had these symptoms (acute/chronic)?:UnknownReason for exam?:recheck pleural effusionsHistory of cancer?:uSurgeries, chemotherapy, or radiation?:uType of Exam?:UnknownAdditional signs and symptoms?:. Abdomen/Pelvis without Conto n 03-11-2024 Abdomen/Pelvis without Cont Normal [facility] Basic Metabolic Profile (BMP )on 03-11-2024 BUN/CRE 6.6 RATIO Low 03-17 [facility] Comment on above: Performed By: #### L 100.0100, L500.2500 ####[facility] [address] [place], [address] CA,Total 8.5 mg/dL Normal 8.5-10.1 [facility] Comment on above: Performed By: #### L 100.0100, L500.2500 ####[facility] [address] [place], [address] Chloride [Moles/Vol] 98 mmol/L Normal 98-107 [facility] Comment on above: Performed By: #### L 100.0100, L500.2500 ####[facility] [address] [place], [address] CO2 [Moles/Vol] 31.0 mmol/L Normal 21.0-32.0 [facility] Comment on above: Performed By: #### L 100.0100, L500.2500 ####[facility] [address] [place], [address] Creatinine [Mass/Vol] 1.37 mg/dL High 0.55-1.02 [facility] Comment on above: Result Comment: The validity of the calculated GFR GFRAA in patients over70 years has not been determined. Clinical correlation isessential. Performed By: #### L 100.0100, L500.2500 ####[facility] [address] [place], [address] ECRCL 39.14 ml/min Normal [facility] Comment on above: Performed By: #### L 100.0100, L500.2500 ####[facility] [address] [place], [address] EST GFR - AA 50 mL/min Low >60 [facility] Comment on above: Result Comment: Afri can [place] Citizen GFR Calc Performed By: #### L 100.0100, L500.2500 ####[facility] [address] [place], [address] GAP 5 Normal 5-15 [facility] Comment on above: Performed By: #### L 100.0100, L500.2500 ####[facility] [address] [place], [address] GFR/1.73 sq M.predicted among non-blacks MDRD (S/P/Bld) [Vol rate/Area] 42 mL/min/{1.73_m2} Low >60 [facility] Comment on above: Result Comment: Non- GFR Calc Performed By: #### L 100.0100, L500.2500 ####[facility] [address] [place], [address] Glucose [Mass/Vol] 62 mg/dL Low 74-106 [facility] Comment on above: Performed By: #### L 100.0100, L500.2500 ####[facility] [address] [place], [address] Potassium [Moles/Vol] 3.7 mmol/L Normal 3.5-5.1 [facility] Comment on above: Performed By: #### L 100.0100, L500.2500 ####[facility] [address] [place], [address] Sodium [Moles/Vol] 135 mmol/L Low 136-145 [facility] Comment on above: Performed By: #### L 100.0100, L500.2500 ####[facility] [address] [place], [address] Urea nitrogen [Mass/Vol] 9 mg/dL Normal 7-18 [facility] Comment on above: Performed By: #### L 100.0100, L500.2500 ####[facility] [address] [place], [address] Emergency Department Summary on 03-11-2024 Emergency Department Summary Normal [facility] Foot min 3 Viewson 4 Foot min 3 Views Normal [facility] CBC-Complete Blood Cnt No Di ffon 02-29-2024 Erythrocyte distribution width (RBC) [Ratio] 17.3 % High 11.6-14.6 [facility] Comment on above: Performed By: #### L 500.4050, L100.0500 ####[facility] [address] [place], [address] Hematocrit (Bld) [Volume fraction] 23.2 % Low 37-47 [facility] Comment on above: Performed By: #### L 500.4050, L100.0500 ####[facility] [address] [place], [address] Hemoglobin (Bld) [Mass/Vol] 7.1 g/dL Low 12.0-15.0 [facility] Comment on above: Performed By: #### L 500.4050, L100.0500 ####[facility] [address] [place], [address] MCH (RBC) [Entitic mass] 28.4 pg Normal 27.0-32.0 [facility] Comment on above: Performed By: #### L 500.4050, L100.0500 ####[facility] [address] [place], [address] MCHC (RBC) [Mass/Vol] 30.6 g/dL Low 32-36 [facility] Comment on above: Performed By: #### L 500.4050, L100.0500 ####[facility] [address] [place], [address] MCV (RBC) [Entitic vol] 92.8 fL Normal 81-99 [facility] Comment on above: Performed By: #### L 500.4050, L100.0500 ####[facility] [address] [place], [address] Platelet mean volume (Bld) [Entitic vol] 9.8 fL Normal 6.2-12.0 [facility] Comment on above: Performed By: #### L 500.4050, L100.0500 ####[facility] [address] [place], [address] Platelets (Bld) [#/Vol] 207 10*3/uL Normal 150-450 [facility] Comment on above: Performed By: #### L 500.4050, L100.0500 ####[facility] [address] [place], [address] RBC (Bld) [#/Vol] 2.50 10*6/uL Low 4.2-5.4 [facility] Comment on above: Performed By: #### L 500.4050, L100.0500 ####[facility] [address] [place], [address] RDW SD 57.8 fl High 35.1-43.9 [facility] Comment on above: Performed By: #### L 500.4050, L100.0500 ####[facility] [address] [place], [address] WBC (Bld) [#/Vol] 4.3 10*3/uL Low 4.4-11.0 [facility] Comment on above: Performed By: #### L 500.4050, L100.0500 ####[facility] [address] [place], [address] Comprehensive Metabolic Prof ilon 02-29-2024 Albumin [Mass/Vol] 2.1 g/dL Low 3.2-5.0 [facility] Comment on above: Performed By: #### L 500.4050, L100.0500 ####[facility] [address] [place], [address] Albumin/Globulin [Mass ratio] 0.6 {ratio} Low 0.9-2.4 [facility] Comment on above: Performed By: #### L 500.4050, L100.0500 ####[facility] [address] [place], [address] ALK P 49 U/L Normal 45-117 [facility] Comment on above: Performed By: #### L 500.4050, L100.0500 ####[facility] [address] [place], [address] ALT [Catalytic activity/Vol] 7 U/L Low 13-56 [facility] Comment on above: Performed By: #### L 500.4050, L100.0500 ####[facility] [address] [place], [address] AST [Catalytic activity/Vol] 24 U/L Normal 15-37 [facility] Comment on above: Performed By: #### L 500.4050, L100.0500 ####[facility] [address] [place], [address] Bilirubin [Mass/Vol] 0.50 mg/dL Normal 0.20-1.00 [facility] Comment on above: Result Comment: For patients on eltrombopag therapy, use of Dimension Hammon TBIL is not recommended. Performed By: #### L 500.4050, L100.0500 ####[facility] [address] [place], [address] BUN/CRE 7.8 RATIO Low 10-20 [facility] Comment on above: Performed By: #### L 500.4050, L100.0500 ####[facility] [address] [place], [address] CA,Total 7.8 mg/dL Low 8.5-10.1 [facility] Comment on above: Performed By: #### L 500.4050, L100.0500 ####[facility] [address] [place], [address] Chloride [Moles/Vol] 97 mmol/L Low 98-107 [facility] Comment on above: Performed By: #### L 500.4050, L100.0500 ####[facility] [address] [place], [address] CO2 [Moles/Vol] 34.0 mmol/L High 21.0-32.0 [facility] Comment on above: Performed By: #### L 500.4050, L100.0500 ####[facility] [address] [place], [address] Creatinine [Mass/Vol] 1.79 mg/dL High 0.55-1.02 [facility] Comment on above: Result Comment: The validity of the calculated GFR GFRAA in patients over70 years has not been determined. Clinical correlation isessential. Performed By: #### L 500.4050, L100.0500 ####[facility] [address] [place], [address] EST GFR - AA 37 mL/min Low >60 [facility] Comment on above: Result Comment: Afri can [place] Citizen GFR Calc Performed By: #### L 500.4050, L100.0500 ####[facility] [address] [place], [address] GAP 4 Low 5-15 [facility] Comment on above: Performed By: #### L 500.4050, L100.0500 ####[facility] [address] [place], [address] GFR/1.73 sq M.predicted among non-blacks MDRD (S/P/Bld) [Vol rate/Area] 31 mL/min/{1.73_m2} Low >60 [facility] Comment on above: Result Comment: Non- GFR Calc Performed By: #### L 500.4050, L100.0500 ####[facility] [address] [place], [address] Globulin (S) [Mass/Vol] 3.8 g/dL Normal 2.2-4.2 [facility] Comment on above: Performed By: #### L 500.4050, L100.0500 ####[facility] [address] [place], [address] Glucose [Mass/Vol] 90 mg/dL Normal 74-106 [facility] Comment on above: Performed By: #### L 500.4050, L100.0500 ####[facility] [address] [place], [address] Potassium [Moles/Vol] 2.6 mmol/L Invalid Interpretation Code 3.5-5.1 [facility] Comment on above: Result Comment: Crit ical Result(s) Called at: 11:16:28 02/29/2024 by: Jamee to Dodie Addison. Results read back by same. Performed By: #### L 500.4050, L100.0500 ####[facility] [address] [place], [address] Sodium [Moles/Vol] 135 mmol/L Low 136-145 [facility] Comment on above: Performed By: #### L 500.4050, L100.0500 ####[facility] [address] [place], [address] T PROT 5.9 g/dL Low 6.4-8.2 [facility] Comment on above: Performed By: #### L 500.4050, L100.0500 ####[facility] [address] [place], [address] Urea nitrogen [Mass/Vol] 14 mg/dL Normal 7-18 [facility] Comment on above: Performed By: #### L 500.4050, L100.0500 ####[facility] [address] [place], [address] CALCIUM, IONIZEDon 4 CALCIUM IONIZED 4.3 mg/dL Low 4.5-5.3 [facility] Comment on above: Order Comment: Serum , non-CRRT source. Performed By: #### 4 5190 ####[facility] [address] [place], [place] [address] Glenn Gudino M.D. [id number] CBCon 02-25-2024 AUTO NRBC 0.0 % Normal [facility] Comment on above: Performed By: #### 4 5218 ####[facility] [address] [place] [address] Glenn Gudino M.D. [id number] AUTO NRBC ABS COUNT 0.00 K/mcL Normal 0.00-0.00 [facility] Comment on above: Performed By: #### 4 5218 ####[facility] [address] [place], [place] [address] Glenn Gudino M.D. [id number] Erythrocyte distribution width (RBC) [Ratio] 17.2 % High 11.6-14.8 [facility] Comment on above: Performed By: #### 4 5218 ####[facility] [address] [place], [place] [address] Glenn Gudino M.D. [id number] Hematocrit (Bld) [Volume fraction] 24.5 % Low 36.0-46.0 [facility] Comment on above: Performed By: #### 4 5218 ####[facility] [address] [place] [address] Glenn Gudino M.D. [id number] Hemoglobin (Bld) [Mass/Vol] 7.6 g/dL Low 12.0-16.0 [facility] Comment on above: Performed By: #### 4 3818 ####[facility] [address] [place], [place] [address] Glenn Gudino M.D. [id number] MCH (RBC) [Entitic mass] 28.6 pg Normal 26.0-34.0 [facility] Comment on above: Performed By: #### 4 7118 ####[facility] [address] [place], [place] [address] Glenn Gudino M.D. [id number] MCV (RBC) [Entitic vol] 92.1 fL Normal 80.0-100.0 [facility] Comment on above: Performed By: #### 4 5761 ####[facility] [address] [place], [place] [address] Glenn Gudino M.D. [id number] MEAN CORPUSCULAR HEMOGLOBIN CONC 31.0 g/dL Normal 31.0-37.0 [facility] Comment on above: Performed By: #### 4 5218 ####[facility] [address] [place] [address] Glenn Gudino M.D. [id number] Platelet mean volume (Bld) [Entitic vol] 9.4 fL Normal 9.4-12.4 [facility] Comment on above: Performed By: #### 4 5218 ####[facility] [address] [place] [address] Glenn Gudino M.D. [id number] Platelets (Bld) [#/Vol] 215 10*3/uL Normal 150-400 [facility] Comment on above: Performed By: #### 4 5218 ####[facility] [address] [place] [address] Glenn Gudino M.D. [id number] RBC (Bld) [#/Vol] 2.66 10*6/uL Low 4.00-5.20 [facility] Comment on above: Performed By: #### 4 5218 ####[facility] [address] [place] [address] Glenn Gudino M.D. [id number] WBC (Bld) [#/Vol] 6.32 10*3/uL Normal 4.50-11.00 [facility] Comment on above: Performed By: #### 4 5218 ####[facility] [address] [place] [address] Glenn Gudino M.D. [id number] Disch Summon 02-25-2024 Disch Summ Normal [facility] MAGNESIUM LEVELon 02-25-2024 Magnesium [Mass/Vol] 2.0 mg/dL Normal 1.6-2.4 [facility] Comment on above: Performed By: #### 4 6109 ####[facility] [address] [place] [address] Glenn Gudino M.D. [id number] RENAL FUNCTION PANELon 02-24 Albumin [Mass/Vol] 2.6 g/dL Low 3.2-5.2 [facility] Comment on above: Order Comment: [facility] has implemented the eGFR calculation approach that does not have a coefficient for race that conforms to the NKF-ASN Task Force Recommendations. Performed By: #### 4 6449 ####[facility] [address] [place] [address] Glenn Gudino M.D. [id number] Anion gap [Moles/Vol] 16 mmol/L Normal 10-20 [facility] Comment on above: Order Comment: [facility] has implemented the eGFR calculation approach that does not have a coefficient for race that conforms to the NKF-ASN Task Force Recommendations. Performed By: #### 4 6449 ####[facility] [address] [place], [place] [address] Glenn Gudino M.D. [id number] Calcium [Mass/Vol] 7.7 mg/dL Low 8.4-10.2 [facility] Comment on above: Order Comment: [facility] has implemented the eGFR calculation approach that does not have a coefficient for race that conforms to the NKF-ASN Task Force Recommendations. Performed By: #### 4 6449 ####[facility] [address] [place] [address] Glenn Gudino M.D. [id number] Chloride [Moles/Vol] 95 mmol/L Low 98-108 [facility] Comment on above: Order Comment: [facility] has implemented the eGFR calculation approach that does not have a coefficient for race that conforms to the NKF-ASN Task Force Recommendations. Performed By: #### 4 6449 ####[facility] [address] [place] [address] Glenn Gudino M.D. [id number] Creatinine [Mass/Vol] 2.62 mg/dL High 0.60-1.10 [facility] Comment on above: Order Comment: [facility] has implemented the eGFR calculation approach that does not have a coefficient for race that conforms to the NKF-ASN Task Force Recommendations. Performed By: #### 4 6449 ####[facility] [address] [place] [address] Glenn Gudino M.D. [id number] EGFR 20 mL/min/1.73 m2 Low >=60 [facility] Comment on above: Order Comment: [facility] has implemented the eGFR calculation approach that does not have a coefficient for race that conforms to the NKF-ASN Task Force Recommendations. Result Comment: Joi mated GFR was calculated using the 2020 CKD-EPI creatinine equation. Performed By: #### 4 6449 ####[facility] [address] [place], [place] [address] Glenn Gudino M.D. [id number] Glucose [Mass/Vol] 93 mg/dL Normal 65-99 [facility] Comment on above: Order Comment: [facility] has implemented the eGFR calculation approach that does not have a coefficient for race that conforms to the NKF-ASN Task Force Recommendations. Performed By: #### 4 6449 ####[facility] [address] [place] [address] 85924 Glenn Gudino M.D. [id number] HCO3 (Bld) [Moles/Vol] 25 mmol/L Normal 21-32 [facility] Comment on above: Order Comment: [facility] has implemented the eGFR calculation approach that does not have a coefficient for race that conforms to the NKF-ASN Task Force Recommendations. Performed By: #### 4 6449 ####[facility] [address] [place] [address] 16009 Glenn Gudino M.D. [id number] Phosphate [Mass/Vol] 4.0 mg/dL Normal 2.8-4.1 [facility] Comment on above: Order Comment: [facility] has implemented the eGFR calculation approach that does not have a coefficient for race that conforms to the NKF-ASN Task Force Recommendations. Performed By: #### 4 6449 ####[facility] [address] [place], [place] [address] Glenn Gudino M.D. [id number] Potassium [Moles/Vol] 3.8 mmol/L Normal 3.5-5.1 [facility] Comment on above: Order Comment: [facility] has implemented the eGFR calculation approach that does not have a coefficient for race that conforms to the NKF-ASN Task Force Recommendations. Performed By: #### 4 6449 ####[facility] [address] [place], [place] [address] Glenn Gudino M.D. [id number] Sodium [Moles/Vol] 132 mmol/L Low 135-145 [facility] Comment on above: Order Comment: [facility] has implemented the eGFR calculation approach that does not have a coefficient for race that conforms to the NKF-ASN Task Force Recommendations. Performed By: #### 4 6449 ####[facility] [address] [place], [place] [address] Glenn Gudino M.D. [id number] Urea nitrogen [Mass/Vol] 26 mg/dL High 8-25 [facility] Comment on above: Order Comment: [facility] has implemented the eGFR calculation approach that does not have a coefficient for race that conforms to the NKF-ASN Task Force Recommendations. Performed By: #### 4 6449 ####[facility] [address] [place] [address] 81493 Glenn Gudino M.D. [id number] Urea nitrogen/Creatinine [Mass ratio] 9.9 mg/mg Low 10.0-20.0 [facility] Comment on above: Order Comment: [facility] has implemented the eGFR calculation approach that does not have a coefficient for race that conforms to the NKF-ASN Task Force Recommendations. Performed By: #### 4 6449 ####[facility] [address] [place], [place] [address] Glenn Gudino M.D. [id number] CALCIUM, IONIZEDon CALCIUM IONIZED 4.2 mg/dL Low 4.5-5.3 [facility] Comment on above: Order Comment: Serum , non-CRRT source. Performed By: #### 4 5190 ####[facility] [address] [place] [address] Glenn Gudino M.D. [id number] CBCon 02-24-2024 AUTO NRBC 0.0 % Normal [facility] Comment on above: Performed By: #### 4 [id number] ####[facility] [address] [place], [place] [address] Glenn Gudino M.D. [id number] AUTO NRBC ABS COUNT 0.00 K/mcL Normal 0.00-0.00 [facility] Comment on above: Performed By: #### 4 [id number] ####[facility] [address] [place], [place] [address] Glenn Gudino M.D. [id number] Erythrocyte distribution width (RBC) [Ratio] 17.3 % High 11.6-14.8 [facility] Comment on above: Performed By: #### 4 [id number] ####[facility] [address] [place], [place] [address] Glenn Gudino M.D. [id number] Hematocrit (Bld) [Volume fraction] 24.7 % Low 36.0-46.0 [facility] Comment on above: Performed By: #### 4 [id number] ####[facility] [address] [place], [place] [address] Glenn Gudino M.D. [id number] Hemoglobin (Bld) [Mass/Vol] 7.7 g/dL Low 12.0-16.0 [facility] Comment on above: Performed By: #### 4 [id number] ####[facility] [address] [place], [place] [address] Glenn Gudino M.D. [id number] MCH (RBC) [Entitic mass] 29.2 pg Normal 26.0-34.0 [facility] Comment on above: Performed By: #### 4 [id number] ####[facility] [address] [place] [address] Glenn Gudino M.D. [id number] MCV (RBC) [Entitic vol] 93.6 fL Normal 80.0-100.0 [facility] Comment on above: Performed By: #### 4 [id number] ####[facility] [address] [place] [address] Glenn Gudino M.D. [id number] MEAN CORPUSCULAR HEMOGLOBIN CONC 31.2 g/dL Normal 31.0-37.0 [facility] Comment on above: Performed By: #### 4 [id number] ####[facility] [address] [place], [place] [address] Glenn Gudino M.D. [id number] Platelet mean volume (Bld) [Entitic vol] 9.7 fL Normal 9.4-12.4 [facility] Comment on above: Performed By: #### 4 [id number] ####[facility] [address] [place], [place] [address] Glenn Gudino M.D. [id number] Platelets (Bld) [#/Vol] 222 10*3/uL Normal 150-400 [facility] Comment on above: Performed By: #### 4 [id number] ####[facility] [address] [place], [place] [address] Glenn Gudino M.D. [id number] RBC (Bld) [#/Vol] 2.64 10*6/uL Low 4.00-5.20 [facility] Comment on above: Performed By: #### 4 [id number] ####[facility] [address] [place] [address] 15707 Glenn Gudino M.D. [id number] WBC (Bld) [#/Vol] 6.53 10*3/uL Normal 4.50-11.00 [facility] Comment on above: Performed By: #### 4 [id number] ####[facility] [address] [place] [address] 75829 Glenn Gudino M.D. [id number] MAGNESIUM LEVELon 02-24-2024 Magnesium [Mass/Vol] 1.5 mg/dL Low 1.6-2.4 [facility] Comment on above: Performed By: #### 4 6109 ####[facility] [address] [place] [address] 74113 Glenn Gudino M.D. [id number] RENAL FUNCTION PANELon 02-23 Albumin [Mass/Vol] 2.5 g/dL Low 3.2-5.2 [facility] Comment on above: Order Comment: [facility] has implemented the eGFR calculation approach that does not have a coefficient for race that conforms to the NKF-ASN Task Force Recommendations. Performed By: #### 4 6449 ####[facility] [address] [place] [address] 35104 Glenn Gudino M.D. [id number] Anion gap [Moles/Vol] 12 mmol/L Normal 10-20 [facility] Comment on above: Order Comment: [facility] has implemented the eGFR calculation approach that does not have a coefficient for race that conforms to the NKF-ASN Task Force Recommendations. Performed By: #### 4 6449 ####[facility] [address] [place] [address] 09685 Glenn Gudino M.D. [id number] Calcium [Mass/Vol] 7.4 mg/dL Low 8.4-10.2 [facility] Comment on above: Order Comment: [facility] has implemented the eGFR calculation approach that does not have a coefficient for race that conforms to the NKF-ASN Task Force Recommendations. Performed By: #### 4 6449 ####[facility] [address] [place] [address] 42180 Glenn Gudino M.D. [id number] Chloride [Moles/Vol] 96 mmol/L Low 98-108 [facility] Comment on above: Order Comment: [facility] has implemented the eGFR calculation approach that does not have a coefficient for race that conforms to the NKF-ASN Task Force Recommendations. Performed By: #### 4 6449 ####[facility] [address] [place], [place] [address] Glenn Gudino M.D. [id number] Creatinine [Mass/Vol] 1.90 mg/dL High 0.60-1.10 [facility] Comment on above: Order Comment: [facility] has implemented the eGFR calculation approach that does not have a coefficient for race that conforms to the NKF-ASN Task Force Recommendations. Performed By: #### 4 6449 ####[facility] [address] [place] [address] 13739 Glenn Gudino M.D. [id number] EGFR 30 mL/min/1.73 m2 Low >=60 [facility] Comment on above: Order Comment: [facility] has implemented the eGFR calculation approach that does not have a coefficient for race that conforms to the NKF-ASN Task Force Recommendations. Result Comment: Joi mated GFR was calculated using the 2020 CKD-EPI creatinine equation. Performed By: #### 4 6449 ####[facility] [address] [place] [address] 48890 Glenn Gudino M.D. [id number] Glucose [Mass/Vol] 87 mg/dL Normal 65-99 [facility] Comment on above: Order Comment: [facility] has implemented the eGFR calculation approach that does not have a coefficient for race that conforms to the NKF-ASN Task Force Recommendations. Performed By: #### 4 6449 ####[facility] [address] [place] [address] 34481 Glenn Gudino M.D. [id number] HCO3 (Bld) [Moles/Vol] 29 mmol/L Normal 21-32 [facility] Comment on above: Order Comment: [facility] has implemented the eGFR calculation approach that does not have a coefficient for race that conforms to the NKF-ASN Task Force Recommendations. Performed By: #### 4 6449 ####[facility] [address] [place] [address] 04162 Glenn Gudino M.D. [id number] Phosphate [Mass/Vol] 3.0 mg/dL Normal 2.8-4.1 [facility] Comment on above: Order Comment: [facility] has implemented the eGFR calculation approach that does not have a coefficient for race that conforms to the NKF-ASN Task Force Recommendations. Performed By: #### 4 6449 ####[facility] [address] [place] [address] 46939 Glenn Gudino M.D. [id number] Potassium [Moles/Vol] 3.6 mmol/L Normal 3.5-5.1 [facility] Comment on above: Order Comment: [facility] has implemented the eGFR calculation approach that does not have a coefficient for race that conforms to the NKF-ASN Task Force Recommendations. Performed By: #### 4 6449 ####[facility] [address] [place] [address] 09709 Glenn Gudino M.D. [id number] Sodium [Moles/Vol] 133 mmol/L Low 135-145 [facility] Comment on above: Order Comment: [facility] has implemented the eGFR calculation approach that does not have a coefficient for race that conforms to the NKF-ASN Task Force Recommendations. Performed By: #### 4 6449 ####[facility] [address] [place] [address] 00627 Glenn Gudino M.D. [id number] Urea nitrogen [Mass/Vol] 19 mg/dL Normal 8-25 [facility] Comment on above: Order Comment: [facility] has implemented the eGFR calculation approach that does not have a coefficient for race that conforms to the NKF-ASN Task Force Recommendations. Performed By: #### 4 6449 ####[facility] [address] [place] [address] 62454 Glenn Gudino M.D. [id number] Urea nitrogen/Creatinine [Mass ratio] 10.0 mg/mg Normal 10.0-20.0 [facility] Comment on above: Order Comment: [facility] has implemented the eGFR calculation approach that does not have a coefficient for race that conforms to the NKF-ASN Task Force Recommendations. Performed By: #### 4 6449 ####[facility] [address] [place] [address] 82098 Glenn Gudino M.D. [id number] CALCIUM, IONIZEDon CALCIUM IONIZED 4.4 mg/dL Low 4.5-5.3 [facility] Comment on above: Order Comment: Serum , non-CRRT source. Performed By: #### 4 [id number] ####[facility] [address] [place] [address] 61033 Glenn Gudino M.D. [id number] CBCon 02-23-2024 AUTO NRBC 0.0 % Normal [facility] Comment on above: Performed By: #### 4 [id number] ####[facility] [address] [place] [address] 47347 Glenn Gudino M.D. [id number] AUTO NRBC ABS COUNT 0.00 K/mcL Normal 0.00-0.00 [facility] Comment on above: Performed By: #### 4 [id number] ####[facility] [address] [place], [place] [address] Glenn Gudino M.D. [id number] Erythrocyte distribution width (RBC) [Ratio] 17.9 % High 11.6-14.8 [facility] Comment on above: Performed By: #### 4 [id number] ####[facility] [address] [place] [address] Glenn Gudino M.D. [id number] Hematocrit (Bld) [Volume fraction] 26.1 % Low 36.0-46.0 [facility] Comment on above: Performed By: #### 4 [id number] ####[facility] [address] [place] [address] Glenn Gudino M.D. [id number] Hemoglobin (Bld) [Mass/Vol] 8.1 g/dL Low 12.0-16.0 [facility] Comment on above: Performed By: #### 4 [id number] ####[facility] [address] [place], [place] [address] Glenn Gudino M.D. [id number] MCH (RBC) [Entitic mass] 28.9 pg Normal 26.0-34.0 [facility] Comment on above: Performed By: #### 4 [id number] ####[facility] [address] [place], [place] [address] Glenn Gudino M.D. [id number] MCV (RBC) [Entitic vol] 93.2 fL Normal 80.0-100.0 [facility] Comment on above: Performed By: #### 4 [id number] ####[facility] [address] [place], [place] [address] Glenn Gudino M.D. [id number] MEAN CORPUSCULAR HEMOGLOBIN CONC 31.0 g/dL Normal 31.0-37.0 [facility] Comment on above: Performed By: #### 4 [id number] ####[facility] [address] [place] [address] 44682 Glenn Gudino M.D. [id number] Platelet mean volume (Bld) [Entitic vol] 9.5 fL Normal 9.4-12.4 [facility] Comment on above: Performed By: #### 4 [id number] ####[facility] [address] [place] [address] 79706 Glenn Gudino M.D. [id number] Platelets (Bld) [#/Vol] 232 10*3/uL Normal 150-400 [facility] Comment on above: Performed By: #### 4 [id number] ####[facility] [address] [place] [address] 94337 Glenn Gudino M.D. [id number] RBC (Bld) [#/Vol] 2.80 10*6/uL Low 4.00-5.20 [facility] Comment on above: Performed By: #### 4 [id number] ####[facility] [address] [place] [address] 76797 Glenn Gudino M.D. [id number] WBC (Bld) [#/Vol] 8.31 10*3/uL Normal 4.50-11.00 [facility] Comment on above: Performed By: #### 4 [id number] ####[facility] [address] [place] [address] 98461 Glenn Gudino M.D. [id number] CONSULTon 02-23-2024 CONSULT Normal [facility] MAGNESIUM LEVELon 02-23-2024 Magnesium [Mass/Vol] 1.7 mg/dL Normal 1.6-2.4 [facility] Comment on above: Performed By: #### 4 6109 ####[facility] [address] [place] [address] 72683 Glenn Gudino M.D. [id number] RENAL FUNCTION PANELon 02-22 Albumin [Mass/Vol] 2.3 g/dL Low 3.2-5.2 [facility] Comment on above: Order Comment: [facility] has implemented the eGFR calculation approach that does not have a coefficient for race that conforms to the NKF-ASN Task Force Recommendations. Performed By: #### 4 6449 ####[facility] [address] [place], [place] [address] Glenn Gudino M.D. [id number] Anion gap [Moles/Vol] 13 mmol/L Normal 10-20 [facility] Comment on above: Order Comment: [facility] has implemented the eGFR calculation approach that does not have a coefficient for race that conforms to the NKF-ASN Task Force Recommendations. Performed By: #### 4 6449 ####[facility] [address] [place] [address] 36342 Glenn Gudino M.D. [id number] Calcium [Mass/Vol] 7.5 mg/dL Low 8.4-10.2 [facility] Comment on above: Order Comment: [facility] has implemented the eGFR calculation approach that does not have a coefficient for race that conforms to the NKF-ASN Task Force Recommendations. Performed By: #### 4 6449 ####[facility] [address] [place] [address] 83687 Glenn Gudino M.D. [id number] Chloride [Moles/Vol] 98 mmol/L Normal 98-108 [facility] Comment on above: Order Comment: [facility] has implemented the eGFR calculation approach that does not have a coefficient for race that conforms to the NKF-ASN Task Force Recommendations. Performed By: #### 4 6449 ####[facility] [address] [place] [address] 17159 Glenn Gudino M.D. [id number] Creatinine [Mass/Vol] 2.25 mg/dL High 0.60-1.10 [facility] Comment on above: Order Comment: [facility] has implemented the eGFR calculation approach that does not have a coefficient for race that conforms to the NKF-ASN Task Force Recommendations. Performed By: #### 4 6449 ####[facility] [address] [place] [address] 98386 Glenn Gudino M.D. [id number] EGFR 24 mL/min/1.73 m2 Low >=60 [facility] Comment on above: Order Comment: [facility] has implemented the eGFR calculation approach that does not have a coefficient for race that conforms to the NKF-ASN Task Force Recommendations. Result Comment: Joi mated GFR was calculated using the 2020 CKD-EPI creatinine equation. Performed By: #### 4 6449 ####[facility] [address] [place] [address] 65457 Glenn Gudino M.D. [id number] Glucose [Mass/Vol] 114 mg/dL High 65-99 [facility] Comment on above: Order Comment: [facility] has implemented the eGFR calculation approach that does not have a coefficient for race that conforms to the NKF-ASN Task Force Recommendations. Performed By: #### 4 6449 ####[facility] [address] [place] [address] 23215 Glenn Gudino M.D. [id number] HCO3 (Bld) [Moles/Vol] 27 mmol/L Normal 21-32 [facility] Comment on above: Order Comment: [facility] has implemented the eGFR calculation approach that does not have a coefficient for race that conforms to the NKF-ASN Task Force Recommendations. Performed By: #### 4 6449 ####[facility] [address] [place] [address] 12929 Glenn Gudino M.D. [id number] Phosphate [Mass/Vol] 3.9 mg/dL Normal 2.8-4.1 [facility] Comment on above: Order Comment: [facility] has implemented the eGFR calculation approach that does not have a coefficient for race that conforms to the NKF-ASN Task Force Recommendations. Performed By: #### 4 6449 ####[facility] [address] [place] [address] 71999 Glenn Gudino M.D. [id number] Potassium [Moles/Vol] 3.6 mmol/L Normal 3.5-5.1 [facility] Comment on above: Order Comment: [facility] has implemented the eGFR calculation approach that does not have a coefficient for race that conforms to the NKF-ASN Task Force Recommendations. Performed By: #### 4 6449 ####[facility] [address] [place] [address] 54242 Glenn Gudino M.D. [id number] Sodium [Moles/Vol] 134 mmol/L Low 135-145 [facility] Comment on above: Order Comment: [facility] has implemented the eGFR calculation approach that does not have a coefficient for race that conforms to the NKF-ASN Task Force Recommendations. Performed By: #### 4 6449 ####[facility] [address] [place] [address] 46542 Glenn Gudino M.D. [id number] Urea nitrogen [Mass/Vol] 26 mg/dL High 8-25 [facility] Comment on above: Order Comment: [facility] has implemented the eGFR calculation approach that does not have a coefficient for race that conforms to the NKF-ASN Task Force Recommendations. Performed By: #### 4 6449 ####[facility] [address] [place] [address] 36827 Glenn Gudino M.D. [id number] Urea nitrogen/Creatinine [Mass ratio] 11.6 mg/mg Normal 10.0-20.0 [facility] Comment on above: Order Comment: [facility] has implemented the eGFR calculation approach that does not have a coefficient for race that conforms to the NKF-ASN Task Force Recommendations. Performed By: #### 4 6449 ####[facility] [address] [place], [place] [address] Glenn Gudino M.D. [id number] CALCIUM, IONIZEDon CALCIUM IONIZED 4.3 mg/dL Low 4.5-5.3 [facility] Comment on above: Order Comment: Serum , non-CRRT source. Performed By: #### 4 [id number] ####[facility] [address] [place] [address] Glenn Gudino M.D. [id number] CBCon 02-22-2024 AUTO NRBC 0.0 % Normal [facility] Comment on above: Performed By: #### 4 [id number] ####[facility] [address] [place] [address] Glenn Gudino M.D. [id number] AUTO NRBC ABS COUNT 0.00 K/mcL Normal 0.00-0.00 [facility] Comment on above: Performed By: #### 4 [id number] ####[facility] [address] [place], [place] [id number] Glenn Gudino M.D. [id number] Erythrocyte distribution width (RBC) [Ratio] 18.2 % High 11.6-14.8 [facility] Comment on above: Performed By: #### 4 [id number] ####[facility] [address] [place], [place] [address] Glenn Gudino M.D. [id number] Hematocrit (Bld) [Volume fraction] 25.0 % Low 36.0-46.0 [facility] Comment on above: Performed By: #### 4 [id number] ####[facility] [address] [place], [place] [address] Glenn Gudino M.D. [id number] Hemoglobin (Bld) [Mass/Vol] 7.9 g/dL Low 12.0-16.0 [facility] Comment on above: Performed By: #### 4 [id number] ####[facility] [address] [place] [address] 41373 Glenn Gudino M.D. [id number] MCH (RBC) [Entitic mass] 29.4 pg Normal 26.0-34.0 [facility] Comment on above: Performed By: #### 4 [id number] ####[facility] [address] [place], [place] [address] Glenn Gudino M.D. [id number] MCV (RBC) [Entitic vol] 92.9 fL Normal 80.0-100.0 [facility] Comment on above: Performed By: #### 4 [id number] ####[facility] [address] [place] [address] Glenn Gudino M.D. [id number] MEAN CORPUSCULAR HEMOGLOBIN CONC 31.6 g/dL Normal 31.0-37.0 [facility] Comment on above: Performed By: #### 4 [id number] ####[facility] [address] [place], [place] [address] Glenn Gudino M.D. [id number] Platelet mean volume (Bld) [Entitic vol] 9.4 fL Normal 9.4-12.4 [facility] Comment on above: Performed By: #### 4 [id number] ####[facility] [address] [place], [place] [address] Glenn Gudino M.D. [id number] Platelets (Bld) [#/Vol] 223 10*3/uL Normal 150-400 [facility] Comment on above: Performed By: #### 4 [id number] ####[facility] [address] [place], [place] [address] Glenn Gudino M.D. [id number] RBC (Bld) [#/Vol] 2.69 10*6/uL Low 4.00-5.20 [facility] Comment on above: Performed By: #### 4 [id number] ####[facility] [address] [place] [address] 35583 Glenn Gudino M.D. [id number] WBC (Bld) [#/Vol] 15.60 10*3/uL High 4.50-11.00 [facility] Comment on above: Performed By: #### 4 [id number] ####[facility] [address] [place], [place] [address] Glenn Gudino M.D. [id number] MAGNESIUM LEVELon 02-22-2024 Magnesium [Mass/Vol] 1.7 mg/dL Normal 1.6-2.4 [facility] Comment on above: Performed By: #### 4 6109 ####[facility] [address] [place], [place] [address] Glenn Gudino M.D. [id number] RENAL FUNCTION PANELon 02-21 Albumin [Mass/Vol] 2.4 g/dL Low 3.2-5.2 [facility] Comment on above: Order Comment: [facility] has implemented the eGFR calculation approach that does not have a coefficient for race that conforms to the NKF-ASN Task Force Recommendations. Performed By: #### 4 6449 ####[facility] [address] [place] [address] 20651 Glenn Gudino M.D. [id number] Anion gap [Moles/Vol] 13 mmol/L Normal 10-20 [facility] Comment on above: Order Comment: [facility] has implemented the eGFR calculation approach that does not have a coefficient for race that conforms to the NKF-ASN Task Force Recommendations. Performed By: #### 4 6449 ####[facility] [address] [place] [address] 40707 Glenn Gudino M.D. [id number] Calcium [Mass/Vol] 7.2 mg/dL Low 8.4-10.2 [facility] Comment on above: Order Comment: [facility] has implemented the eGFR calculation approach that does not have a coefficient for race that conforms to the NKF-ASN Task Force Recommendations. Performed By: #### 4 6449 ####[facility] [address] [place] [address] 53376 Glenn Gudino M.D. [id number] Chloride [Moles/Vol] 98 mmol/L Normal 98-108 [facility] Comment on above: Order Comment: [facility] has implemented the eGFR calculation approach that does not have a coefficient for race that conforms to the NKF-ASN Task Force Recommendations. Performed By: #### 4 6449 ####[facility] [address] [place] [address] 66467 Glenn Gudino M.D. [id number] Creatinine [Mass/Vol] 1.51 mg/dL High 0.60-1.10 [facility] Comment on above: Order Comment: [facility] has implemented the eGFR calculation approach that does not have a coefficient for race that conforms to the NKF-ASN Task Force Recommendations. Performed By: #### 4 6449 ####[facility] [address] [place] [address] 08277 Glenn Gudino M.D. [id number] EGFR 39 mL/min/1.73 m2 Low >=60 [facility] Comment on above: Order Comment: [facility] has implemented the eGFR calculation approach that does not have a coefficient for race that conforms to the NKF-ASN Task Force Recommendations. Result Comment: Joi mated GFR was calculated using the 2020 CKD-EPI creatinine equation. Performed By: #### 4 6449 ####[facility] [address] [place] [address] 85825 Glenn Gudino M.D. [id number] Glucose [Mass/Vol] 140 mg/dL High 65-99 [facility] Comment on above: Order Comment: [facility] has implemented the eGFR calculation approach that does not have a coefficient for race that conforms to the NKF-ASN Task Force Recommendations. Performed By: #### 4 6449 ####[facility] [address] [place] [address] 80104 Glenn Gudino M.D. [id number] HCO3 (Bld) [Moles/Vol] 28 mmol/L Normal 21-32 [facility] Comment on above: Order Comment: [facility] has implemented the eGFR calculation approach that does not have a coefficient for race that conforms to the NKF-ASN Task Force Recommendations. Performed By: #### 4 6449 ####[facility] [address] [place] [address] Glenn Gudino M.D. [id number] Phosphate [Mass/Vol] 3.0 mg/dL Normal 2.8-4.1 [facility] Comment on above: Order Comment: [facility] has implemented the eGFR calculation approach that does not have a coefficient for race that conforms to the NKF-ASN Task Force Recommendations. Performed By: #### 4 6449 ####[facility] [address] [place], [place] [address] Glenn Gudino M.D. [id number] Potassium [Moles/Vol] 3.6 mmol/L Normal 3.5-5.1 [facility] Comment on above: Order Comment: [facility] has implemented the eGFR calculation approach that does not have a coefficient for race that conforms to the NKF-ASN Task Force Recommendations. Performed By: #### 4 6449 ####[facility] [address] [place], [place] [address] Glenn Gudino M.D. [id number] Sodium [Moles/Vol] 135 mmol/L Normal 135-145 [facility] Comment on above: Order Comment: [facility] has implemented the eGFR calculation approach that does not have a coefficient for race that conforms to the NKF-ASN Task Force Recommendations. Performed By: #### 4 6449 ####[facility] [address] [place] [address] Glenn Gudino M.D. [id number] Urea nitrogen [Mass/Vol] 20 mg/dL Normal 8-25 [facility] Comment on above: Order Comment: [facility] has implemented the eGFR calculation approach that does not have a coefficient for race that conforms to the NKF-ASN Task Force Recommendations. Performed By: #### 4 6449 ####[facility] [address] [place] [address] Glenn Gudino M.D. [id number] Urea nitrogen/Creatinine [Mass ratio] 13.2 mg/mg Normal 10.0-20.0 [facility] Comment on above: Order Comment: [facility] has implemented the eGFR calculation approach that does not have a coefficient for race that conforms to the NKF-ASN Task Force Recommendations. Performed By: #### 4 6449 ####[facility] [address] [place] [address] Glenn Gudino M.D. [id number] ANTIBODY IDENTIFICATION-Con 02-21-2024 ANTIBODY IDENTIFICATION-C Normal [facility] Comment on above: Performed By: #### 4 [id number]-C ####[facility] [address] [place] [address] Nurys Oneill MD [id number] [facility] CALCIUM, IONIZEDon CALCIUM IONIZED 4.5 mg/dL Normal 4.5-5.3 [facility] Comment on above: Order Comment: Serum , non-CRRT source. Performed By: #### 4 5190 ####[facility] [address] [place] [address] Glenn Gudino M.D. [id number] CBCon 02-21-2024 AUTO NRBC 0.0 % Normal [facility] Comment on above: Performed By: #### 4 [id number] ####[facility] [address] [place] [address] Glenn Gudino M.D. [id number] AUTO NRBC ABS COUNT 0.00 K/mcL Normal 0.00-0.00 [facility] Comment on above: Performed By: #### 4 [id number] ####[facility] [address] [place], [place] [address] Glenn Gudino M.D. [id number] Erythrocyte distribution width (RBC) [Ratio] 18.6 % High 11.6-14.8 [facility] Comment on above: Performed By: #### 4 [id number] ####[facility] [address] [place] [address] Glenn Gudino M.D. [id number] Hematocrit (Bld) [Volume fraction] 24.4 % Low 36.0-46.0 [facility] Comment on above: Performed By: #### 4 [id number] ####[facility] [address] [place] [address] Glenn Gudino M.D. [id number] Hemoglobin (Bld) [Mass/Vol] 7.8 g/dL Low 12.0-16.0 [facility] Comment on above: Result Comment: Zuleima pheral smear reviewed manually Performed By: #### 4 [id number] ####[facility] [address] [place], [place] [address] Glenn Gudino M.D. [id number] MCH (RBC) [Entitic mass] 29.4 pg Normal 26.0-34.0 [facility] Comment on above: Performed By: #### 4 [id number] ####[facility] [address] [place], [place] [address] Glenn Gudino M.D. [id number] MCV (RBC) [Entitic vol] 92.1 fL Normal 80.0-100.0 [facility] Comment on above: Performed By: #### 4 5291 ####[facility] [address] [place] [address] Glenn Gudino M.D. [id number] MEAN CORPUSCULAR HEMOGLOBIN CONC 32.0 g/dL Normal 31.0-37.0 [facility] Comment on above: Performed By: #### 4 [id number] ####[facility] [address] [place], [place] [address] Glenn Gudino M.D. [id number] Platelet mean volume (Bld) [Entitic vol] 9.5 fL Normal 9.4-12.4 [facility] Comment on above: Performed By: #### 4 [id number] ####[facility] [address] [place], [place] [address] Glenn Gudino M.D. [id number] Platelets (Bld) [#/Vol] 234 10*3/uL Normal 150-400 [facility] Comment on above: Performed By: #### 4 [id number] ####[facility] [address] [place], [place] [address] Glenn Gudino M.D. [id number] RBC (Bld) [#/Vol] 2.65 10*6/uL Low 4.00-5.20 [facility] Comment on above: Performed By: #### 4 [id number] ####[facility] [address] [place] [address] 24891 Glenn Gudino M.D. [id number] WBC (Bld) [#/Vol] 27.78 10*3/uL High 4.50-11.00 [facility] Comment on above: Performed By: #### 4 [id number] ####[facility] [address] [place] [address] 39797 Glenn Gudino M.D. [id number] CONSULTon 02-21-2024 CONSULT Normal [facility] MAGNESIUM LEVELon 02-21-2024 Magnesium [Mass/Vol] 1.8 mg/dL Normal 1.6-2.4 [facility] Comment on above: Performed By: #### 4 6109 ####[facility] [address] [place], [place] [address] Glenn Gudino M.D. [id number] [facility] Glucose [Mass/Vol] 85 mg/dL Normal 65-99 [facility] Comment on above: Performed By: #### 4 6932 ####[facility] [address] [place] [address] [id number] [facility]-20 Albumin [Mass/Vol] 2.2 g/dL Low 3.2-5.2 [facility] Comment on above: Order Comment: [facility] has implemented the eGFR calculation approach that does not have a coefficient for race that conforms to the NKF-ASN Task Force Recommendations. Performed By: #### 4 6449 ####[facility] [address] [place], [place] [address] Glenn Gudino M.D. [id number] Anion gap [Moles/Vol] 18 mmol/L Normal 10-20 [facility] Comment on above: Order Comment: [facility] has implemented the eGFR calculation approach that does not have a coefficient for race that conforms to the NKF-ASN Task Force Recommendations. Performed By: #### 4 6449 ####[facility] [address] [place], [place] [address] Glenn Gudino M.D. [id number] Calcium [Mass/Vol] 7.8 mg/dL Low 8.4-10.2 [facility] Comment on above: Order Comment: [facility] has implemented the eGFR calculation approach that does not have a coefficient for race that conforms to the NKF-ASN Task Force Recommendations. Performed By: #### 4 6449 ####[facility] [address] [place], [place] [address] Glenn Gudino M.D. [id number] Chloride [Moles/Vol] 99 mmol/L Normal 98-108 [facility] Comment on above: Order Comment: [facility] has implemented the eGFR calculation approach that does not have a coefficient for race that conforms to the NKF-ASN Task Force Recommendations. Performed By: #### 4 6449 ####[facility] [address] [place] [address] 55937 Glenn Gudino M.D. [id number] Creatinine [Mass/Vol] 2.59 mg/dL High 0.60-1.10 [facility] Comment on above: Order Comment: [facility] has implemented the eGFR calculation approach that does not have a coefficient for race that conforms to the NKF-ASN Task Force Recommendations. Performed By: #### 4 6449 ####[facility] [address] [place], [place] [address] Glenn Gudino M.D. [id number] EGFR 21 mL/min/1.73 m2 Low >=60 [facility] Comment on above: Order Comment: [facility] has implemented the eGFR calculation approach that does not have a coefficient for race that conforms to the NKF-ASN Task Force Recommendations. Result Comment: Joi mated GFR was calculated using the 2020 CKD-EPI creatinine equation. Performed By: #### 4 6449 ####[facility] [address] [place] [address] 49832 Glenn Gudino M.D. [id number] Glucose [Mass/Vol] 64 mg/dL Low 65-99 [facility] Comment on above: Order Comment: [facility] has implemented the eGFR calculation approach that does not have a coefficient for race that conforms to the NKF-ASN Task Force Recommendations. Performed By: #### 4 6449 ####[facility] [address] [place] [address] 35528 Glenn Gudino M.D. [id number] HCO3 (Bld) [Moles/Vol] 23 mmol/L Normal 21-32 [facility] Comment on above: Order Comment: [facility] has implemented the eGFR calculation approach that does not have a coefficient for race that conforms to the NKF-ASN Task Force Recommendations. Performed By: #### 4 6449 ####[facility] [address] [place] [address] 34468 Glenn Gudino M.D. [id number] Phosphate [Mass/Vol] 5.1 mg/dL High 2.8-4.1 [facility] Comment on above: Order Comment: [facility] has implemented the eGFR calculation approach that does not have a coefficient for race that conforms to the NKF-ASN Task Force Recommendations. Performed By: #### 4 6449 ####[facility] [address] [place] [address] 38229 Glenn Gudino M.D. [id number] Potassium [Moles/Vol] 4.0 mmol/L Normal 3.5-5.1 [facility] Comment on above: Order Comment: [facility] has implemented the eGFR calculation approach that does not have a coefficient for race that conforms to the NKF-ASN Task Force Recommendations. Performed By: #### 4 6449 ####[facility] [address] [place] [address] 43639 Glenn Gudino M.D. [id number] Sodium [Moles/Vol] 136 mmol/L Normal 135-145 [facility] Comment on above: Order Comment: [facility] has implemented the eGFR calculation approach that does not have a coefficient for race that conforms to the NKF-ASN Task Force Recommendations. Performed By: #### 4 6449 ####[facility] [address] [place] [address] 72768 Glenn Gudino M.D. [id number] Urea nitrogen [Mass/Vol] 39 mg/dL High 8-25 [facility] Comment on above: Order Comment: [facility] has implemented the eGFR calculation approach that does not have a coefficient for race that conforms to the NKF-ASN Task Force Recommendations. Performed By: #### 4 6449 ####[facility] [address] [place] [address] 02238 Glenn Gudino M.D. [id number] Urea nitrogen/Creatinine [Mass ratio] 15.1 mg/mg Normal 10.0-20.0 [facility] Comment on above: Order Comment: [facility] has implemented the eGFR calculation approach that does not have a coefficient for race that conforms to the NKF-ASN Task Force Recommendations. Performed By: #### 4 6449 ####[facility] [address] [place] [address] Glenn Gudino M.D. [id number] TYPE AND SCREENon 02-21-2024 TYPE AND SCREEN ABORH: O Positive AB SCREEN: Positive EXPIRATION DATE: 02/24/2024 23:59 EST Normal [facility] Comment on above: Performed By: #### 4 6619 ####[facility] [address] [place] [address] Nurys Oneill MD [id number] [facility] URINE AEROBIC CULTUREon 01-28 URINE AEROBIC CULTURE URINE CULTURE Three or more morphotypes suggesting probable contamination during specimen (urine) collection. Suggest repeat if clinically indicated Normal [facility] Comment on above: Performed By: #### 4 4053 ####[facility] [address] [place] [address] 75511 Glenn Gudino M.D. [id number] CALCIUM, IONIZEDon CALCIUM IONIZED 4.5 mg/dL Normal 4.5-5.3 [facility] Comment on above: Order Comment: Serum , non-CRRT source. Performed By: #### 4 5190 ####[facility] [address] [place] [address] 92663 Glenn Gudino M.D. [id number] CBCon 02-20-2024 AUTO NRBC 0.0 % Normal [facility] Comment on above: Performed By: #### 4 [id number] ####[facility] [address] [place] [address] 68415 Glenn Gudino M.D. [id number] AUTO NRBC ABS COUNT 0.00 K/mcL Normal 0.00-0.00 [facility] Comment on above: Performed By: #### 4 [id number] ####[facility] [address] [place] [address] Glenn Gudino M.D. [id number] Erythrocyte distribution width (RBC) [Ratio] 18.7 % High 11.6-14.8 [facility] Comment on above: Performed By: #### 4 [id number] ####[facility] [address] [place] [address] Glenn Gudino M.D. [id number] Hematocrit (Bld) [Volume fraction] 27.2 % Low 36.0-46.0 [facility] Comment on above: Performed By: #### 4 [id number] ####[facility] [address] [place] [address] Glenn Gudino M.D. [id number] Hemoglobin (Bld) [Mass/Vol] 8.6 g/dL Low 12.0-16.0 [facility] Comment on above: Performed By: #### 4 [id number] ####[facility] [address] [place] [address] Glenn Gudino M.D. [id number] MCH (RBC) [Entitic mass] 28.9 pg Normal 26.0-34.0 [facility] Comment on above: Performed By: #### 4 [id number] ####[facility] [address] [place], [place] [address] Glenn Gudino M.D. [id number] MCV (RBC) [Entitic vol] 91.3 fL Normal 80.0-100.0 [facility] Comment on above: Performed By: #### 4 [id number] ####[facility] [address] [place], [place] [address]Karma Gudino M.D. [id number] MEAN CORPUSCULAR HEMOGLOBIN CONC 31.6 g/dL Normal 31.0-37.0 [facility] Comment on above: Performed By: #### 4 [id number] ####[facility] [address] [place] [address] 08536 Glenn Gudino M.D. [id number] Platelet mean volume (Bld) [Entitic vol] 9.2 fL Low 9.4-12.4 [facility] Comment on above: Performed By: #### 4 [id number] ####[facility] [address] [place] [address] 10662 Glenn Gudino M.D. [id number] Platelets (Bld) [#/Vol] 244 10*3/uL Normal 150-400 [facility] Comment on above: Performed By: #### 4 [id number] ####[facility] [address] [place], [place] [address] Glenn Gudino M.D. [id number] RBC (Bld) [#/Vol] 2.98 10*6/uL Low 4.00-5.20 [facility] Comment on above: Performed By: #### 4 [id number] ####[facility] [address] [place] [address] 46454 Glenn Gudino M.D. [id number] WBC (Bld) [#/Vol] 21.11 10*3/uL High 4.50-11.00 [facility] Comment on above: Performed By: #### 4 [id number] ####[facility] [address] [place] [address] 49120 Glenn Gudino M.D. [id number] MAGNESIUM LEVELon 02-20-2024 Magnesium [Mass/Vol] 2.0 mg/dL Normal 1.6-2.4 [facility] Comment on above: Performed By: #### 4 6109 ####[facility] [address] [place] [address] 87271 Glenn Gudino M.D. [id number] RENAL FUNCTION PANELon 02-19 Albumin [Mass/Vol] 2.6 g/dL Low 3.2-5.2 [facility] Comment on above: Order Comment: [facility] has implemented the eGFR calculation approach that does not have a coefficient for race that conforms to the NKF-ASN Task Force Recommendations. Performed By: #### 4 6449 ####[facility] [address] [place] [address] 97382 Glenn Gudino M.D. [id number] Anion gap [Moles/Vol] 16 mmol/L Normal 10-20 [facility] Comment on above: Order Comment: [facility] has implemented the eGFR calculation approach that does not have a coefficient for race that conforms to the NKF-ASN Task Force Recommendations. Performed By: #### 4 6449 ####[facility] [address] [place], [place] [address] Glenn Gudino M.D. [id number] Calcium [Mass/Vol] 8.2 mg/dL Low 8.4-10.2 [facility] Comment on above: Order Comment: [facility] has implemented the eGFR calculation approach that does not have a coefficient for race that conforms to the NKF-ASN Task Force Recommendations. Performed By: #### 4 6449 ####[facility] [address] [place] [address] 23324 Glenn Gudino M.D. [id number] Chloride [Moles/Vol] 96 mmol/L Low 98-108 [facility] Comment on above: Order Comment: [facility] has implemented the eGFR calculation approach that does not have a coefficient for race that conforms to the NKF-ASN Task Force Recommendations. Performed By: #### 4 6449 ####[facility] [address] [place] [address] 90218 Glenn Gudino M.D. [id number] Creatinine [Mass/Vol] 1.96 mg/dL High 0.60-1.10 [facility] Comment on above: Order Comment: [facility] has implemented the eGFR calculation approach that does not have a coefficient for race that conforms to the NKF-ASN Task Force Recommendations. Performed By: #### 4 6449 ####[facility] [address] [place] [address] 91305 Glenn Gudino M.D. [id number] EGFR 29 mL/min/1.73 m2 Low >=60 [facility] Comment on above: Order Comment: [facility] has implemented the eGFR calculation approach that does not have a coefficient for race that conforms to the NKF-ASN Task Force Recommendations. Result Comment: Joi mated GFR was calculated using the 2020 CKD-EPI creatinine equation. Performed By: #### 4 6449 ####[facility] [address] [place], [place] [address] Glenn Gudino M.D. [id number] Glucose [Mass/Vol] 99 mg/dL Normal 65-99 [facility] Comment on above: Order Comment: [facility] has implemented the eGFR calculation approach that does not have a coefficient for race that conforms to the NKF-ASN Task Force Recommendations. Performed By: #### 4 6449 ####[facility] [address] [place] [address] 35326 Glenn Gudino M.D. [id number] HCO3 (Bld) [Moles/Vol] 26 mmol/L Normal 21-32 [facility] Comment on above: Order Comment: [facility] has implemented the eGFR calculation approach that does not have a coefficient for race that conforms to the NKF-ASN Task Force Recommendations. Performed By: #### 4 6449 ####[facility] [address] [place] [address] 70656 Glenn Gudino M.D. [id number] Phosphate [Mass/Vol] 3.4 mg/dL Normal 2.8-4.1 [facility] Comment on above: Order Comment: [facility] has implemented the eGFR calculation approach that does not have a coefficient for race that conforms to the NKF-ASN Task Force Recommendations. Performed By: #### 4 6449 ####[facility] [address] [place], [place] [address] Glenn Gudino M.D. [id number] Potassium [Moles/Vol] 4.2 mmol/L Normal 3.5-5.1 [facility] Comment on above: Order Comment: [facility] has implemented the eGFR calculation approach that does not have a coefficient for race that conforms to the NKF-ASN Task Force Recommendations. Result Comment: Slcezar htly Hemolyzed Performed By: #### 4 6449 ####[facility] [address] [place], [place] [address] Glenn Gudino M.D. [id number] Sodium [Moles/Vol] 134 mmol/L Low 135-145 [facility] Comment on above: Order Comment: [facility] has implemented the eGFR calculation approach that does not have a coefficient for race that conforms to the NKF-ASN Task Force Recommendations. Performed By: #### 4 6449 ####[facility] [address] [place], [place] [address] Glenn Gudino M.D. [id number] Urea nitrogen [Mass/Vol] 27 mg/dL High 8-25 [facility] Comment on above: Order Comment: [facility] has implemented the eGFR calculation approach that does not have a coefficient for race that conforms to the NKF-ASN Task Force Recommendations. Performed By: #### 4 6449 ####[facility] [address] [place] [address] 42416 Glenn Gudino M.D. [id number] Urea nitrogen/Creatinine [Mass ratio] 13.8 mg/mg Normal 10.0-20.0 [facility] Comment on above: Order Comment: [facility] has implemented the eGFR calculation approach that does not have a coefficient for race that conforms to the NKF-ASN Task Force Recommendations. Performed By: #### 4 6449 ####[facility] [address] [place] [address] 64615 Glenn Gudino M.D. [id number] XR CHEST PA/APon 02-20-2024 XR CHEST PA/AP Normal [facility] Comment on above: Order Comment: Injur y/Trauma or Illness?:Illness/OtherHow long have you had these symptoms (acute/chronic)?:UnknownReason for exam?:pleural effusionHistory of cancer?:uSurgeries, chemotherapy, or radiation?:uType of Exam?:UnknownAdditional signs and symptoms?:no CALCIUM, IONIZEDon CALCIUM IONIZED 4.7 mg/dL Normal 4.5-5.3 [facility] Comment on above: Order Comment: Serum , non-CRRT source. Performed By: #### 4 5190 ####[facility] [address] [place] [address] 17864 Glenn Gudino M.D. [id number] CBCon 02-19-2024 AUTO NRBC 0.0 % Normal [facility] Comment on above: Performed By: #### 4 [id number] ####[facility] [address] [place] [address] 31810 Glenn Gudino M.D. [id number] AUTO NRBC ABS COUNT 0.00 K/mcL Normal 0.00-0.00 [facility] Comment on above: Performed By: #### 4 [id number] ####[facility] [address] [place] [address] 50404 Glenn Gudino M.D. [id number] Erythrocyte distribution width (RBC) [Ratio] 19.5 % High 11.6-14.8 [facility] Comment on above: Performed By: #### 4 5218 ####[facility] [address] [place], [place] [address] Glenn Gudino M.D. [id number] Hematocrit (Bld) [Volume fraction] 25.3 % Low 36.0-46.0 [facility] Comment on above: Performed By: #### 4 [id number] ####[facility] [address] [place], [place] [address] Glenn Gudino M.D. [id number] Hemoglobin (Bld) [Mass/Vol] 8.0 g/dL Low 12.0-16.0 [facility] Comment on above: Performed By: #### 4 [id number] ####[facility] [address] [place], [place] [address] Glenn Gudino M.D. [id number] MCH (RBC) [Entitic mass] 29.1 pg Normal 26.0-34.0 [facility] Comment on above: Performed By: #### 4 [id number] ####[facility] [address] [place] [address] lGenn Gudino M.D. [id number] MCV (RBC) [Entitic vol] 92.0 fL Normal 80.0-100.0 [facility] Comment on above: Performed By: #### 4 [id number] ####[facility] [address] [place], [place] [address] Glenn Gudino M.D. [id number] MEAN CORPUSCULAR HEMOGLOBIN CONC 31.6 g/dL Normal 31.0-37.0 [facility] Comment on above: Performed By: #### 4 [id number] ####[facility] [address] [place], [place] [address] Glenn Gudino M.D. [id number] Platelet mean volume (Bld) [Entitic vol] 9.7 fL Normal 9.4-12.4 [facility] Comment on above: Performed By: #### 4 5221 ####[facility] [address] [place] [address] Glenn Gudino M.D. [id number] Platelets (Bld) [#/Vol] 235 10*3/uL Normal 150-400 [facility] Comment on above: Performed By: #### 4 [id number] ####[facility] [address] [place] [address] 90728 Glenn Gudino M.D. [id number] RBC (Bld) [#/Vol] 2.75 10*6/uL Low 4.00-5.20 [facility] Comment on above: Performed By: #### 4 [id number] ####[facility] [address] [place] [address] 42069 Glenn Gudino M.D. [id number] WBC (Bld) [#/Vol] 9.65 10*3/uL Normal 4.50-11.00 [facility] Comment on above: Performed By: #### 4 [id number] ####[facility] [address] [place], [place] [address] Glenn Gudino M.D. [id number] MAGNESIUM LEVELon 02-19-2024 Magnesium [Mass/Vol] 1.8 mg/dL Normal 1.6-2.4 [facility] Comment on above: Performed By: #### 4 6109 ####[facility] [address] [place] [address] 25292 Glenn Gudino M.D. [id number] [facility] Glucose [Mass/Vol] 133 mg/dL High 65-99 [facility] Comment on above: Performed By: #### 4 6932 ####[facility] [address] [place] [address] [id number] RMHPOC RENAL FUNCTION PANELon 02-18 Albumin [Mass/Vol] 2.3 g/dL Low 3.2-5.2 [facility] Comment on above: Order Comment: [facility] has implemented the eGFR calculation approach that does not have a coefficient for race that conforms to the NKF-ASN Task Force Recommendations. Performed By: #### 4 6449 ####[facility] [address] [place] [address] 72721 Glenn Gudino M.D. [id number] Anion gap [Moles/Vol] 15 mmol/L Normal 10-20 [facility] Comment on above: Order Comment: [facility] has implemented the eGFR calculation approach that does not have a coefficient for race that conforms to the NKF-ASN Task Force Recommendations. Performed By: #### 4 6449 ####[facility] [address] [place] [address] 49031 Glenn Gudino M.D. [id number] Calcium [Mass/Vol] 8.5 mg/dL Normal 8.4-10.2 [facility] Comment on above: Order Comment: [facility] has implemented the eGFR calculation approach that does not have a coefficient for race that conforms to the NKF-ASN Task Force Recommendations. Performed By: #### 4 6449 ####[facility] [address] [place] [address] 43312 Glenn Gudino M.D. [id number] Chloride [Moles/Vol] 99 mmol/L Normal 98-108 [facility] Comment on above: Order Comment: [facility] has implemented the eGFR calculation approach that does not have a coefficient for race that conforms to the NKF-ASN Task Force Recommendations. Performed By: #### 4 6449 ####[facility] [address] [place] [address] 61507 Glenn Gudino M.D. [id number] Creatinine [Mass/Vol] 2.11 mg/dL High 0.60-1.10 [facility] Comment on above: Order Comment: [facility] has implemented the eGFR calculation approach that does not have a coefficient for race that conforms to the NKF-ASN Task Force Recommendations. Performed By: #### 4 6449 ####[facility] [address] [place] [address] 50453 Glenn Gudino M.D. [id number] EGFR 26 mL/min/1.73 m2 Low >=60 [facility] Comment on above: Order Comment: [facility] has implemented the eGFR calculation approach that does not have a coefficient for race that conforms to the NKF-ASN Task Force Recommendations. Result Comment: Joi mated GFR was calculated using the 2020 CKD-EPI creatinine equation. Performed By: #### 4 6449 ####[facility] [address] [place], [place] [address] Glenn Gudino M.D. [id number] Glucose [Mass/Vol] 127 mg/dL High 65-99 [facility] Comment on above: Order Comment: [facility] has implemented the eGFR calculation approach that does not have a coefficient for race that conforms to the NKF-ASN Task Force Recommendations. Performed By: #### 4 6449 ####[facility] [address] [place], [place] [address] Glenn Gudino M.D. [id number] HCO3 (Bld) [Moles/Vol] 28 mmol/L Normal 21-32 [facility] Comment on above: Order Comment: [facility] has implemented the eGFR calculation approach that does not have a coefficient for race that conforms to the NKF-ASN Task Force Recommendations. Performed By: #### 4 6449 ####[facility] [address] [place], [place] [address] Glenn Gudino M.D. [id number] Phosphate [Mass/Vol] 4.5 mg/dL High 2.8-4.1 [facility] Comment on above: Order Comment: [facility] has implemented the eGFR calculation approach that does not have a coefficient for race that conforms to the NKF-ASN Task Force Recommendations. Performed By: #### 4 6449 ####[facility] [address] [place], [place] [address] Glenn Gudino M.D. [id number] Potassium [Moles/Vol] 5.5 mmol/L High 3.5-5.1 [facility] Comment on above: Order Comment: [facility] has implemented the eGFR calculation approach that does not have a coefficient for race that conforms to the NKF-ASN Task Force Recommendations. Result Comment: Slig htly Hemolyzed Performed By: #### 4 6449 ####[facility] [address] [place] [address] 68070 Glenn Gudino M.D. [id number] Sodium [Moles/Vol] 136 mmol/L Normal 135-145 [facility] Comment on above: Order Comment: [facility] has implemented the eGFR calculation approach that does not have a coefficient for race that conforms to the NKF-ASN Task Force Recommendations. Performed By: #### 4 6449 ####[facility] [address] [place] [address] 24150 Glenn Gudino M.D. [id number] Urea nitrogen [Mass/Vol] 39 mg/dL High 8-25 [facility] Comment on above: Order Comment: [facility] has implemented the eGFR calculation approach that does not have a coefficient for race that conforms to the NKF-ASN Task Force Recommendations. Performed By: #### 4 6449 ####[facility] [address] [place] [address] 92261 Glenn Gudino M.D. [id number] Urea nitrogen/Creatinine [Mass ratio] 18.5 mg/mg Normal 10.0-20.0 [facility] Comment on above: Order Comment: [facility] has implemented the eGFR calculation approach that does not have a coefficient for race that conforms to the NKF-ASN Task Force Recommendations. Performed By: #### 4 6449 ####[facility] [address] [place] [address] 50101 Glenn Gudino M.D. [id number] XR CHEST PA/APon 02-19-2024 XR CHEST PA/AP Normal [facility] Comment on above: Order Comment: Injur y/Trauma or Illness?:Illness/OtherHow long have you had these symptoms (acute/chronic)?:AcuteReason for exam?:pleural effusionHistory of cancer?:uSurgeries, chemotherapy, or radiation?:uType of Exam?:Subsequent/Follow-upAdditional signs and symptoms?:pleural effusion ANTIBODY IDENTIFICATION-FYAo n 02-18-2024 ANTIBODY IDENTIFICATION-FYA Normal [facility] Comment on above: Performed By: #### 4 6427_Anti-Fya ####[facility] [address] [place] [address] Nurys Oneill MD [id number] RMHTS CBCon 02-18-2024 AUTO NRBC 0.0 % [facility] Comment on above: Performed By: #### 4 [id number] ####[facility] [address] [place] [address] Glenn Gudino M.D. [id number] AUTO NRBC ABS COUNT 0.00 K/mcL Normal 0.00-0.00 [facility] Comment on above: Performed By: #### 4 [id number] ####[facility] [address] [place] [address] Glenn Gudino M.D. [id number] Erythrocyte distribution width (RBC) [Ratio] 19.9 % High 11.6-14.8 [facility] Comment on above: Performed By: #### 4 [id number] ####[facility] [address] [place], [place] [address] Glenn Gudino M.D. [id number] Hematocrit (Bld) [Volume fraction] 27.8 % Low 36.0-46.0 [facility] Comment on above: Performed By: #### 4 [id number] ####[facility] [address] [place] [address] Glenn Gudino M.D. [id number] Hemoglobin (Bld) [Mass/Vol] 8.9 g/dL Low 12.0-16.0 [facility] Comment on above: Performed By: #### 4 [id number] ####[facility] [address] [place], [place] [address] Glenn Gudino M.D. [id number] MCH (RBC) [Entitic mass] 29.6 pg Normal 26.0-34.0 [facility] Comment on above: Performed By: #### 4 [id number] ####[facility] [address] [place], [place] [address] Glenn Gudino M.D. [id number] MCV (RBC) [Entitic vol] 92.4 fL Normal 80.0-100.0 [facility] Comment on above: Performed By: #### 4 [id number] ####[facility] [address] [place], [place] [address] Glenn Gudino M.D. [id number] MEAN CORPUSCULAR HEMOGLOBIN CONC 32.0 g/dL Normal 31.0-37.0 [facility] Comment on above: Performed By: #### 4 [id number] ####[facility] [address] [place], [place] [address] Glenn Gudino M.D. [id number] Platelet mean volume (Bld) [Entitic vol] 9.6 fL Normal 9.4-12.4 [facility] Comment on above: Performed By: #### 4 [id number] ####[facility] [address] [place] [address] 11618 Glenn Gudino M.D. [id number] Platelets (Bld) [#/Vol] 222 10*3/uL Normal 150-400 [facility] Comment on above: Performed By: #### 4 [id number] ####[facility] [address] [place] [address] 73671 Glenn Gudino M.D. [id number] RBC (Bld) [#/Vol] 3.01 10*6/uL Low 4.00-5.20 [facility] Comment on above: Performed By: #### 4 [id number] ####[facility] [address] [place] [address] 85897 Glenn Gudino M.D. [id number] WBC (Bld) [#/Vol] 14.78 10*3/uL High 4.50-11.00 [facility] Comment on above: Performed By: #### 4 [id number] ####[facility] [address] [place] [address] Glenn Gudino M.D. [id number] MAGNESIUM LEVELon 02-18-2024 Magnesium [Mass/Vol] 1.9 mg/dL Normal 1.6-2.4 [facility] Comment on above: Performed By: #### 4 6109 ####[facility] [address] [place], [place] [address] Glenn Gudino M.D. [id number] [facility] Glucose [Mass/Vol] 114 mg/dL High 65-99 [facility] Comment on above: Performed By: #### 4 6932 ####[facility] POCT LAB [address] [place] [address] [id number] RMHPOC RENAL FUNCTION PANELon 02-17 Albumin [Mass/Vol] 2.3 g/dL Low 3.2-5.2 [facility] Comment on above: Order Comment: [facility] has implemented the eGFR calculation approach that does not have a coefficient for race that conforms to the NKF-ASN Task Force Recommendations. Performed By: #### 4 6449 ####[facility] [address] [place], [place] [address] Glenn Gudino M.D. [id number] Anion gap [Moles/Vol] 16 mmol/L Normal 10-20 [facility] Comment on above: Order Comment: [facility] has implemented the eGFR calculation approach that does not have a coefficient for race that conforms to the NKF-ASN Task Force Recommendations. Performed By: #### 4 6449 ####[facility] [address] [place] [address] 84571 Glenn Gudino M.D. [id number] Calcium [Mass/Vol] 8.2 mg/dL Low 8.4-10.2 [facility] Comment on above: Order Comment: [facility] has implemented the eGFR calculation approach that does not have a coefficient for race that conforms to the NKF-ASN Task Force Recommendations. Performed By: #### 4 6449 ####[facility] [address] [place] [address] 37875 Glenn Gudino M.D. [id number] Chloride [Moles/Vol] 96 mmol/L Low 98-108 [facility] Comment on above: Order Comment: [facility] has implemented the eGFR calculation approach that does not have a coefficient for race that conforms to the NKF-ASN Task Force Recommendations. Performed By: #### 4 6449 ####[facility] [address] [place] [address] 18624 Gelnn Gudino M.D. [id number] Creatinine [Mass/Vol] 2.72 mg/dL High 0.60-1.10 [facility] Comment on above: Order Comment: [facility] has implemented the eGFR calculation approach that does not have a coefficient for race that conforms to the NKF-ASN Task Force Recommendations. Performed By: #### 4 6449 ####[facility] [address] [place] [address] 54569 Glenn Gudino M.D. [id number] EGFR 19 mL/min/1.73 m2 Low >=60 [facility] Comment on above: Order Comment: [facility] has implemented the eGFR calculation approach that does not have a coefficient for race that conforms to the NKF-ASN Task Force Recommendations. Result Comment: Joi mated GFR was calculated using the 2020 CKD-EPI creatinine equation. Performed By: #### 4 6449 ####[facility] [facility] [address] [place], [place] [id number] Glenn Gudino M.D. [id number] Glucose [Mass/Vol] 159 mg/dL High 65-99 [facility] Comment on above: Order Comment: [facility] has implemented the eGFR calculation approach that does not have a coefficient for race that conforms to the NKF-ASN Task Force Recommendations. Performed By: #### 4 6449 ####[facility] [address] [place], [place] [address] Glenn Gudino M.D. [id number] HCO3 (Bld) [Moles/Vol] 25 mmol/L Normal 21-32 [facility] Comment on above: Order Comment: [facility] has implemented the eGFR calculation approach that does not have a coefficient for race that conforms to the NKF-ASN Task Force Recommendations. Performed By: #### 4 6449 ####[facility] [address] [place] [address] Glenn Gudino M.D. [id number] Phosphate [Mass/Vol] 5.4 mg/dL High 2.8-4.1 [facility] Comment on above: Order Comment: [facility] has implemented the eGFR calculation approach that does not have a coefficient for race that conforms to the NKF-ASN Task Force Recommendations. Performed By: #### 4 6449 ####[facility] [address] [place], [place] [address] Glenn Gudino M.D. [id number] Potassium [Moles/Vol] 6.9 mmol/L Off scale high 3.5-5.1 [facility] Comment on above: Order Comment: [facility] has implemented the eGFR calculation approach that does not have a coefficient for race that conforms to the NKF-ASN Task Force Recommendations. Performed By: #### 4 6449 ####[facility] [address] [place], [place] [address] Glenn Gudino M.D. [id number] Sodium [Moles/Vol] 130 mmol/L Low 135-145 [facility] Comment on above: Order Comment: [facility] has implemented the eGFR calculation approach that does not have a coefficient for race that conforms to the NKF-ASN Task Force Recommendations. Performed By: #### 4 6449 ####[facility] [address] [place] [address] Glenn Gudino M.D. [id number] Urea nitrogen [Mass/Vol] 56 mg/dL High 8-25 [facility] Comment on above: Order Comment: [facility] has implemented the eGFR calculation approach that does not have a coefficient for race that conforms to the NKF-ASN Task Force Recommendations. Performed By: #### 4 6449 ####[facility] [address] [place] [address] Glenn Gudino M.D. [id number] Urea nitrogen/Creatinine [Mass ratio] 20.6 mg/mg High 10.0-20.0 [facility] Comment on above: Order Comment: [facility] has implemented the eGFR calculation approach that does not have a coefficient for race that conforms to the NKF-ASN Task Force Recommendations. Performed By: #### 4 6449 ####[facility] [address] [place] [address] Glenn Gudino M.D. [id number] TYPE AND SCREENon 02-18-2024 TYPE AND SCREEN Normal [facility] Comment on above: Performed By: #### 4 6619 ####[facility] [address] [place] [address] Nuyrs Oneill MD [id number] HTS CALCIUM, IONIZEDon 4 CALCIUM IONIZED 4.5 mg/dL Normal 4.5-5.3 [facility] Comment on above: Order Comment: Serum , non-CRRT source. Performed By: #### 4 5190 ####[facility] [address] [place], [place] [address] Glenn Gudino M.D. [id number] CBCon 02-17-2024 AUTO NRBC 0.0 % Normal [facility] Comment on above: Performed By: #### 4 [id number] ####[facility] [address] [place] [address] Glenn Gudino M.D. [id number] AUTO NRBC ABS COUNT 0.00 K/mcL Normal 0.00-0.00 [facility] Comment on above: Performed By: #### 4 [id number] ####[facility] [address] [place], [place] [address] Glenn Gudino M.D. [id number] Erythrocyte distribution width (RBC) [Ratio] 20.7 % High 11.6-14.8 [facility] Comment on above: Performed By: #### 4 [id number] ####[facility] [address] [place], [place] [address] Glenn Gudino M.D. [id number] Hematocrit (Bld) [Volume fraction] 22.3 % Low 36.0-46.0 [facility] Comment on above: Performed By: #### 4 5218 ####[facility] [address] [place], [place] [address] Glenn Gudino M.D. [id number] Hemoglobin (Bld) [Mass/Vol] 6.9 g/dL Off scale low 12.0-16.0 [facility] Comment on above: Result Comment: Resu lts called and read back verified by:.[id number] Performed By: #### 4 [id number] ####[facility] [address] [place], [place] [address] Glenn Gudino M.D. [id number] MCH (RBC) [Entitic mass] 29.6 pg Normal 26.0-34.0 [facility] Comment on above: Performed By: #### 4 [id number] ####[facility] [address] [place] [address] Glenn Gudino M.D. [id number] MCV (RBC) [Entitic vol] 95.7 fL Normal 80.0-100.0 [facility] Comment on above: Performed By: #### 4 [id number] ####[facility] [address] [place] [address] Glenn Gudino M.D. [id number] MEAN CORPUSCULAR HEMOGLOBIN CONC 30.9 g/dL Low 31.0-37.0 [facility] Comment on above: Performed By: #### 4 [id number] ####[facility] [address] [place], [place] [address] Glenn Gudino M.D. [id number] Platelet mean volume (Bld) [Entitic vol] 10.0 fL Normal 9.4-12.4 [facility] Comment on above: Performed By: #### 4 [id number] ####[facility] [address] [place], [place] [address] Glenn Gudino M.D. [id number] Platelets (Bld) [#/Vol] 187 10*3/uL Normal 150-400 [facility] Comment on above: Performed By: #### 4 [id number] ####[facility] [address] [place], [place] [address] Glenn Gudino M.D. [id number] RBC (Bld) [#/Vol] 2.33 10*6/uL Low 4.00-5.20 [facility] Comment on above: Performed By: #### 4 [id number] ####[facility] [address] [place], [place] [address] Glenn Gudino M.D. [id number] WBC (Bld) [#/Vol] 13.82 10*3/uL High 4.50-11.00 [facility] Comment on above: Performed By: #### 4 [id number] ####[facility] [address] [place] [address] Glenn Gudino M.D. [id number] HEMOGLOBIN AND HEMATOCRITon 02-17-2024 Hematocrit (Bld) [Volume fraction] 27.0 % Low 36.0-46.0 [facility] Comment on above: Performed By: #### 4 6909 ####[facility] [address] [place] [address] Glenn Gudino M.D. [id number] Hemoglobin (Bld) [Mass/Vol] 8.5 g/dL Low 12.0-16.0 [facility] Comment on above: Performed By: #### 4 6909 ####[facility] [address] [place] [address] Glenn Gudino M.D. [id number] MAGNESIUM LEVELon 02-17-2024 Magnesium [Mass/Vol] 2.0 mg/dL Normal 1.6-2.4 [facility] Comment on above: Performed By: #### 4 6109 ####[facility] [address] [place], [place] [address] Glenn Gudino M.D. [id number] [facility] Glucose [Mass/Vol] 116 mg/dL High 65-99 [facility] Comment on above: Performed By: #### 4 9943 ####[facility] [address] [place] [address] [id number] RMHPOC Glucose [Mass/Vol] 147 mg/dL High 65-99 [facility] Comment on above: Performed By: #### 4 2478 ####[facility] [address] [place] [address] [id number] RMHPOC RENAL FUNCTION PANELon 02-16 Albumin [Mass/Vol] 2.1 g/dL Low 3.2-5.2 [facility] Comment on above: Order Comment: [facility] has implemented the eGFR calculation approach that does not have a coefficient for race that conforms to the NKF-ASN Task Force Recommendations. Performed By: #### 4 6449 ####[facility] [address] [place] [address] Glenn Gudino M.D. [id number] Anion gap [Moles/Vol] 12 mmol/L Normal 10-20 [facility] Comment on above: Order Comment: [facility] has implemented the eGFR calculation approach that does not have a coefficient for race that conforms to the NKF-ASN Task Force Recommendations. Performed By: #### 4 6449 ####[facility] [address] [place], [place] [address] Glenn Gudino M.D. [id number] Calcium [Mass/Vol] 7.7 mg/dL Low 8.4-10.2 [facility] Comment on above: Order Comment: [facility] has implemented the eGFR calculation approach that does not have a coefficient for race that conforms to the NKF-ASN Task Force Recommendations. Performed By: #### 4 6449 ####[facility] [address] [place] [address] Glenn Gudino M.D. [id number] Chloride [Moles/Vol] 97 mmol/L Low 98-108 [facility] Comment on above: Order Comment: [facility] has implemented the eGFR calculation approach that does not have a coefficient for race that conforms to the NKF-ASN Task Force Recommendations. Performed By: #### 4 6449 ####[facility] [address] [place] [address] Glenn Gudino M.D. [id number] Creatinine [Mass/Vol] 2.06 mg/dL High 0.60-1.10 [facility] Comment on above: Order Comment: [facility] has implemented the eGFR calculation approach that does not have a coefficient for race that conforms to the NKF-ASN Task Force Recommendations. Performed By: #### 4 6449 ####[facility] [address] [place] [address] Glenn Gudino M.D. [id number] EGFR 27 mL/min/1.73 m2 Low >=60 [facility] Comment on above: Order Comment: [facility] has implemented the eGFR calculation approach that does not have a coefficient for race that conforms to the NKF-ASN Task Force Recommendations. Result Comment: Joi mated GFR was calculated using the 2020 CKD-EPI creatinine equation. Performed By: #### 4 6449 ####[facility] [address] [place] [address] Glenn Gudino M.D. [id number] Glucose [Mass/Vol] 145 mg/dL High 65-99 [facility] Comment on above: Order Comment: [facility] has implemented the eGFR calculation approach that does not have a coefficient for race that conforms to the NKF-ASN Task Force Recommendations. Performed By: #### 4 6449 ####[facility] [address] [place] [address] Glenn Gudino M.D. [id number] HCO3 (Bld) [Moles/Vol] 28 mmol/L Normal 21-32 [facility] Comment on above: Order Comment: [facility] has implemented the eGFR calculation approach that does not have a coefficient for race that conforms to the NKF-ASN Task Force Recommendations. Performed By: #### 4 6449 ####[facility] [address] [place] [address] Glenn Gudino M.D. [id number] Phosphate [Mass/Vol] 3.6 mg/dL Normal 2.8-4.1 [facility] Comment on above: Order Comment: [facility] has implemented the eGFR calculation approach that does not have a coefficient for race that conforms to the NKF-ASN Task Force Recommendations. Performed By: #### 4 6449 ####[facility] [address] [place] [address] Glenn Gudino M.D. [id number] Potassium [Moles/Vol] 5.4 mmol/L High 3.5-5.1 [facility] Comment on above: Order Comment: [facility] has implemented the eGFR calculation approach that does not have a coefficient for race that conforms to the NKF-ASN Task Force Recommendations. Performed By: #### 4 6449 ####[facility] [address] [place] [address] Glenn Gudino M.D. [id number] Sodium [Moles/Vol] 132 mmol/L Low 135-145 [facility] Comment on above: Order Comment: [facility] has implemented the eGFR calculation approach that does not have a coefficient for race that conforms to the NKF-ASN Task Force Recommendations. Performed By: #### 4 6449 ####[facility] [address] [place], [place] [address] Glenn Gudino M.D. [id number] Urea nitrogen [Mass/Vol] 43 mg/dL High 8-25 [facility] Comment on above: Order Comment: [facility] has implemented the eGFR calculation approach that does not have a coefficient for race that conforms to the NKF-ASN Task Force Recommendations. Performed By: #### 4 6449 ####[facility] [address] [place] [address] Glenn Gudino M.D. [id number] Urea nitrogen/Creatinine [Mass ratio] 20.9 mg/mg High 10.0-20.0 [facility] Comment on above: Order Comment: [facility] has implemented the eGFR calculation approach that does not have a coefficient for race that conforms to the NKF-ASN Task Force Recommendations. Performed By: #### 4 6449 ####[facility] [address] [place] [address] Glenn Gudino M.D. [id number] CALCIUM, IONIZEDon CALCIUM IONIZED 4.8 mg/dL Normal 4.5-5.3 [facility] Comment on above: Order Comment: Serum , non-CRRT source. Performed By: #### 4 5190 ####[facility] [address] [place], [place] [address] Glenn Gudino M.D. [id number] CALCIUM IONIZED 4.5 mg/dL Normal 4.5-5.3 [facility] Comment on above: Order Comment: Serum , non-CRRT source. Performed By: #### 4 5190 ####[facility] [address] [place] [address] Glenn Gudino M.D. [id number] CBCon 02-16-2024 AUTO NRBC 0.0 % Normal [facility] Comment on above: Performed By: #### 4 [id number] ####[facility] [address] [place] [address] Glenn Gudino M.D. [id number] AUTO NRBC ABS COUNT 0.00 K/mcL Normal 0.00-0.00 [facility] Comment on above: Performed By: #### 4 [id number] ####[facility] [address] [place], [place] [address] Glenn Gudino M.D. [id number] Erythrocyte distribution width (RBC) [Ratio] 20.1 % High 11.6-14.8 [facility] Comment on above: Performed By: #### 4 5218 ####[facility] [address] [place], [place] [address] Glenn Gudino M.D. [id number] Hematocrit (Bld) [Volume fraction] 22.6 % Low 36.0-46.0 [facility] Comment on above: Performed By: #### 4 5218 ####[facility] [address] [place], [place] [address] Glenn Gudino M.D. [id number] Hemoglobin (Bld) [Mass/Vol] 7.0 g/dL Low 12.0-16.0 [facility] Comment on above: Performed By: #### 4 5218 ####[facility] [address] [place], [place] [address] Glenn Gudino M.D. [id number] MCH (RBC) [Entitic mass] 28.6 pg Normal 26.0-34.0 [facility] Comment on above: Performed By: #### 4 5218 ####[facility] [address] [place] [address] Glenn Guidno M.D. [id number] MCV (RBC) [Entitic vol] 92.2 fL Normal 80.0-100.0 [facility] Comment on above: Performed By: #### 4 5218 ####[facility] [address] [place] [address] Glenn Gudino M.D. [id number] MEAN CORPUSCULAR HEMOGLOBIN CONC 31.0 g/dL Normal 31.0-37.0 [facility] Comment on above: Performed By: #### 4 5218 ####[facility] [address] [place], [place] [address] Glenn Gudino M.D. [id number] Platelet mean volume (Bld) [Entitic vol] 9.7 fL Normal 9.4-12.4 [facility] Comment on above: Performed By: #### 4 5218 ####[facility] [address] [place], [place] [address] Glenn Gudino M.D. [id number] Platelets (Bld) [#/Vol] 203 10*3/uL Normal 150-400 [facility] Comment on above: Performed By: #### 4 5218 ####[facility] [address] [place] [address] Glenn Gudino M.D. [id number] RBC (Bld) [#/Vol] 2.45 10*6/uL Low 4.00-5.20 [facility] Comment on above: Performed By: #### 4 5218 ####[facility] [address] [place] [address] Glnen Gudino M.D. [id number] WBC (Bld) [#/Vol] 14.40 10*3/uL High 4.50-11.00 [facility] Comment on above: Performed By: #### 4 5218 ####[facility] [address] [place] [address] Glenn Gudino M.D. [id number] AUTO NRBC 0.0 % Normal [facility] Comment on above: Performed By: #### 4 5218 ####[facility] [address] [place] [address] Glenn Gudino M.D. [id number] AUTO NRBC ABS COUNT 0.00 K/mcL Normal 0.00-0.00 [facility] Comment on above: Performed By: #### 4 5218 ####[facility] [address] [place], [place] [address] Glenn Gudino M.D. [id number] Erythrocyte distribution width (RBC) [Ratio] 19.9 % High 11.6-14.8 [facility] Comment on above: Performed By: #### 4 [id number] ####[facility] [address] [place] [address] Glenn Gudino M.D. [id number] Hematocrit (Bld) [Volume fraction] 14.9 % Low 36.0-46.0 [facility] Comment on above: Result Comment: Repe ated verified Performed By: #### 4 5218 ####[facility] [address] [place] [address] Glenn Gudino M.D. [id number] Hemoglobin (Bld) [Mass/Vol] 4.6 g/dL Off scale low 12.0-16.0 [facility] Comment on above: Result Comment: Resu lts called and read back verified by:.[id number] Performed By: #### 4 [id number] ####[facility] [address] [place] [address] Glenn Gudino M.D. [id number] MCH (RBC) [Entitic mass] 29.1 pg Normal 26.0-34.0 [facility] Comment on above: Performed By: #### 4 5218 ####[facility] [address] [place] [address] Glenn Gudino M.D. [id number] MCV (RBC) [Entitic vol] 94.3 fL Normal 80.0-100.0 [facility] Comment on above: Performed By: #### 4 [id number] ####[facility] [address] [place] [address] Glenn Gudino M.D. [id number] MEAN CORPUSCULAR HEMOGLOBIN CONC 30.9 g/dL Low 31.0-37.0 [facility] Comment on above: Performed By: #### 4 5218 ####[facility] [address] [place], [place] [address] Glenn Gudino M.D. [id number] Platelet mean volume (Bld) [Entitic vol] 9.5 fL Normal 9.4-12.4 [facility] Comment on above: Performed By: #### 4 [id number] ####[facility] [address] [place], [place] [address] Glenn Gudino M.D. [id number] Platelets (Bld) [#/Vol] 286 10*3/uL Normal 150-400 [facility] Comment on above: Performed By: #### 4 [id number] ####[facility] [address] [place] [address] Glenn Gudino M.D. [id number] RBC (Bld) [#/Vol] 1.58 10*6/uL Low 4.00-5.20 [facility] Comment on above: Performed By: #### 4 5218 ####[facility] [address] [place], [place] [address] Glenn Gudino M.D. [id number] WBC (Bld) [#/Vol] 21.59 10*3/uL High 4.50-11.00 [facility] Comment on above: Performed By: #### 4 5218 ####[facility] [address] [place], [place] [address] Glenn Gudino M.D. [id number] HEMOGLOBIN A1Con 02-16-2024 Glucose [Mass/Vol] 103 mg/dL Normal 74-114 [facility] Comment on above: Order Comment: Irina l: 4.2% - 5.6%Increased risk for diabetes: 5.7% - 6.4%Diabetes: >= 6.5%Pediatrics: No established reference rangeEstimated average glucose: 74-114 mg/dL Performed By: #### 4 8202 ####[facility] [address] [place], [place] [address] Glenn Gudino M.D. [id number] HbA1c (Bld) [Mass fraction] 5.2 % Normal 4.2-5.6 [facility] Comment on above: Order Comment: Irina l: 4.2% - 5.6%Increased risk for diabetes: 5.7% - 6.4%Diabetes: >= 6.5%Pediatrics: No established reference rangeEstimated average glucose: 74-114 mg/dL Performed By: #### 4 8202 ####[facility] [address] [place], [place] [address] Glenn Gudino M.D. [id number] HEMOGLOBIN AND HEMATOCRITon 02-16-2024 Hematocrit (Bld) [Volume fraction] 23.6 % Low 36.0-46.0 [facility] Comment on above: Performed By: #### 4 6909 ####[facility] [address] [place], [place] [address] Glenn Gudino M.D. [id number] Hemoglobin (Bld) [Mass/Vol] 7.5 g/dL Low 12.0-16.0 [facility] Comment on above: Result Comment: Resu lts checked Performed By: #### 4 6909 ####[facility] [address] [place], [place] [address] Glenn Gudino M.D. [id number] MAGNESIUM LEVELon 02-16-2024 Magnesium [Mass/Vol] 1.8 mg/dL Normal 1.6-2.4 [facility] Comment on above: Performed By: #### 4 6109 ####[facility] [address] [place], [place] [address] Glenn Gudino M.D. [id number] Magnesium [Mass/Vol] 1.9 mg/dL Normal 1.6-2.4 [facility] Comment on above: Performed By: #### 4 6109 ####[facility] [address] [place], [place] [address] Glenn Gudino M.D. [id number] POC GLUCOSE - [facility] 024 Glucose [Mass/Vol] 110 mg/dL High 65-99 [facility] Comment on above: Performed By: #### 4 6944 ####[facility] [address] [place] [address] [id number] RMHPOC Glucose [Mass/Vol] 94 mg/dL Normal 65-99 [facility] Comment on above: Performed By: #### 4 6916 ####[facility] [address] [place] [address] [id number] [facility] Glucose [Mass/Vol] 169 mg/dL High 65-99 [facility] Comment on above: Performed By: #### 4 [id number] ####[facility] [address] [place] [address] [id number] [facility] Glucose [Mass/Vol] 64 mg/dL Low [address] [place] [address] Comment on above: Performed By: #### 4 6932 ####[facility] [address] [place] [address] [id number] [facility] Glucose [Mass/Vol] 56 mg/dL Low [address] [place] [address] Comment on above: Performed By: #### 4 6932 ####[facility] [address] [place] [address] [id number] [facility] Glucose [Mass/Vol] 60 mg/dL Low [address] Comment on above: Performed By: #### 4 6932 ####[facility] [address] [place] [address] [id number] [facility] Glucose [Mass/Vol] 72 mg/dL Normal [address] [place] [address] Comment on above: Performed By: #### 4 6932 ####[facility] [address] [place] [address] [id number] [facility] Glucose [Mass/Vol] 125 mg/dL High [address] [place] [address] Comment on above: Performed By: #### 4 6932 ####[facility] [address] [place] [address] [id number] [facility] Glucose [Mass/Vol] 127 mg/dL High [address] [place] [address] Comment on above: Performed By: #### 4 6932 ####[facility] [address] [place] [address] [id number] [facility] Glucose [Mass/Vol] 113 mg/dL High [address] [place] [address] Comment on above: Performed By: #### 4 6920 ####[facility] [address] [place] [address] [id number] [facility] RENAL FUNCTION PANELon 02-15 Albumin [Mass/Vol] 2.3 g/dL Low 3.2-5.2 [facility] Comment on above: Order Comment: [facility] has implemented the eGFR calculation approach that does not have a coefficient for race that conforms to the NKF-ASN Task Force Recommendations. Performed By: #### 4 6449 ####[facility] [address] [place], [place] [address] Glenn Gudino M.D. [id number] Anion gap [Moles/Vol] 12 mmol/L Normal 10-20 [facility] Comment on above: Order Comment: [facility] has implemented the eGFR calculation approach that does not have a coefficient for race that conforms to the NKF-ASN Task Force Recommendations. Performed By: #### 4 6449 ####[facility] [address] [place] [address] 58251 Glenn Gudino M.D. [id number] Calcium [Mass/Vol] 8.2 mg/dL Low 8.4-10.2 [facility] Comment on above: Order Comment: [facility] has implemented the eGFR calculation approach that does not have a coefficient for race that conforms to the NKF-ASN Task Force Recommendations. Performed By: #### 4 6449 ####[facility] [address] [place] [address] 87146 Glenn Gudino M.D. [id number] Chloride [Moles/Vol] 98 mmol/L Normal 98-108 [facility] Comment on above: Order Comment: [facility] has implemented the eGFR calculation approach that does not have a coefficient for race that conforms to the NKF-ASN Task Force Recommendations. Performed By: #### 4 6449 ####[facility] [address] [place] [address]47[address] Glenn Gudino M.D. [id number] Creatinine [Mass/Vol] 1.00 mg/dL Normal 0.60-1.10 [facility] Comment on above: Order Comment: [facility] has implemented the eGFR calculation approach that does not have a coefficient for race that conforms to the NKF-ASN Task Force Recommendations. Performed By: #### 4 6449 ####[facility] [address] [place] [address] 16963 Glenn Gudino M.D. [id number] EGFR 64 mL/min/1.73 m2 Normal >=60 [facility] Comment on above: Order Comment: [facility] has implemented the eGFR calculation approach that does not have a coefficient for race that conforms to the NKF-ASN Task Force Recommendations. Result Comment: Joi mated GFR was calculated using the 2020 CKD-EPI creatinine equation. Performed By: #### 4 6449 ####[facility] [address] [place] [address] 74116 Glenn Gudino M.D. [id number] Glucose [Mass/Vol] 110 mg/dL High 65-99 [facility] Comment on above: Order Comment: [facility] has implemented the eGFR calculation approach that does not have a coefficient for race that conforms to the NKF-ASN Task Force Recommendations. Performed By: #### 4 6449 ####[facility] [address] [place] [address] 58532 Glenn Gudino M.D. [id number] HCO3 (Bld) [Moles/Vol] 29 mmol/L Normal 21-32 [facility] Comment on above: Order Comment: [facility] has implemented the eGFR calculation approach that does not have a coefficient for race that conforms to the NKF-ASN Task Force Recommendations. Performed By: #### 4 6449 ####[facility] [address] [place] [address] 34818 Glenn Gudino M.D. [id number] Phosphate [Mass/Vol] 1.0 mg/dL Low 2.8-4.1 [facility] Comment on above: Order Comment: [facility] has implemented the eGFR calculation approach that does not have a coefficient for race that conforms to the NKF-ASN Task Force Recommendations. Performed By: #### 4 6449 ####[facility] [address] [place] [address] 13827 Glenn Gudino M.D. [id number] Potassium [Moles/Vol] 3.6 mmol/L Normal 3.5-5.1 [facility] Comment on above: Order Comment: [facility] has implemented the eGFR calculation approach that does not have a coefficient for race that conforms to the NKF-ASN Task Force Recommendations. Performed By: #### 4 6449 ####[facility] [address] [place] [address] 32055 Glenn Gudino M.D. [id number] Sodium [Moles/Vol] 135 mmol/L Normal 135-145 [facility] Comment on above: Order Comment: [facility] has implemented the eGFR calculation approach that does not have a coefficient for race that conforms to the NKF-ASN Task Force Recommendations. Performed By: #### 4 6449 ####[facility] [address] [place] [address] 29006 Glenn Gudino M.D. [id number] Urea nitrogen [Mass/Vol] 27 mg/dL High 8-25 [facility] Comment on above: Order Comment: [facility] has implemented the eGFR calculation approach that does not have a coefficient for race that conforms to the NKF-ASN Task Force Recommendations. Performed By: #### 4 6449 ####[facility] [address] [place] [address] 64269 Glenn Gudino M.D. [id number] Urea nitrogen/Creatinine [Mass ratio] 27.0 mg/mg High 10.0-20.0 [facility] Comment on above: Order Comment: [facility] has implemented the eGFR calculation approach that does not have a coefficient for race that conforms to the NKF-ASN Task Force Recommendations. Performed By: #### 4 6449 ####[facility] [address] [place], [place] [address] Glenn Gudino M.D. [id number] XR CHEST PA/APon 02-16-2024 XR CHEST PA/AP Normal [facility] Comment on above: Order Comment: Injur y/Trauma or Illness?:Illness/OtherHow long have you had these symptoms (acute/chronic)?:AcuteReason for exam?:pneumothoraxHistory of cancer?:uSurgeries, chemotherapy, or radiation?:uType of Exam?:InitialAdditional signs and symptoms?:. ANTIBODY IDENTIFICATION-FYAo n 02-15-2024 ANTIBODY IDENTIFICATION-FYA Normal [facility] Comment on above: Performed By: #### 4 6427_Anti-Fya ####[facility] [address] [place] [address] Nurys Oneill MD [id number] [facility] BASIC METABOLIC PANELon 01-27 Anion gap [Moles/Vol] 13 mmol/L Normal 10-20 [facility] Comment on above: Order Comment: [facility] has implemented the eGFR calculation approach that does not have a coefficient for race that conforms to the NKF-ASN Task Force Recommendations. Performed By: #### 4 6124 ####[facility] [address] [place] [address] 63259 Glenn Gudino M.D. [id number] Calcium [Mass/Vol] 7.8 mg/dL Low 8.4-10.2 [facility] Comment on above: Order Comment: [facility] has implemented the eGFR calculation approach that does not have a coefficient for race that conforms to the NKF-ASN Task Force Recommendations. Performed By: #### 4 6124 ####[facility] [address] [place] [address] 33307 Glenn Gudino M.D. [id number] Chloride [Moles/Vol] 99 mmol/L Normal 98-108 [facility] Comment on above: Order Comment: [facility] has implemented the eGFR calculation approach that does not have a coefficient for race that conforms to the NKF-ASN Task Force Recommendations. Performed By: #### 4 6124 ####[facility] [address] [place] [address] 82166 Glenn Gudino M.D. [id number] Creatinine [Mass/Vol] 1.73 mg/dL High 0.60-1.10 [facility] Comment on above: Order Comment: [facility] has implemented the eGFR calculation approach that does not have a coefficient for race that conforms to the NKF-ASN Task Force Recommendations. Performed By: #### 4 6124 ####[facility] [address] [place] [address] 70578 Glenn Gudino M.D. [id number] EGFR 33 mL/min/1.73 m2 Low >=60 [facility] Comment on above: Order Comment: [facility] has implemented the eGFR calculation approach that does not have a coefficient for race that conforms to the NKF-ASN Task Force Recommendations. Result Comment: Joi mated GFR was calculated using the 2020 CKD-EPI creatinine equation. Performed By: #### 4 6124 ####[facility] [address] [place] [address] 22327 Glenn Gudino M.D. [id number] Glucose [Mass/Vol] 97 mg/dL Normal 65-99 [facility] Comment on above: Order Comment: [facility] has implemented the eGFR calculation approach that does not have a coefficient for race that conforms to the NKF-ASN Task Force Recommendations. Performed By: #### 4 6124 ####[facility] [address] [place] [address] 09220 Glenn Gudino M.D. [id number] HCO3 (Bld) [Moles/Vol] 28 mmol/L Normal 21-32 [facility] Comment on above: Order Comment: [facility] has implemented the eGFR calculation approach that does not have a coefficient for race that conforms to the NKF-ASN Task Force Recommendations. Performed By: #### 4 6124 ####[facility] [address] [place] [address] 61842 Glenn Gudino M.D. [id number] Potassium [Moles/Vol] 3.1 mmol/L Low 3.5-5.1 [facility] Comment on above: Order Comment: [facility] has implemented the eGFR calculation approach that does not have a coefficient for race that conforms to the NKF-ASN Task Force Recommendations. Result Comment: Slig htly Hemolyzed Performed By: #### 4 6124 ####[facility] [address] [place] [address] 20033 Glenn Gudino M.D. [id number] Sodium [Moles/Vol] 137 mmol/L Normal 135-145 [facility] Comment on above: Order Comment: [facility] has implemented the eGFR calculation approach that does not have a coefficient for race that conforms to the NKF-ASN Task Force Recommendations. Performed By: #### 4 6124 ####[facility] [address] [place] [address] 74644 Glenn Gudino M.D. [id number] Urea nitrogen [Mass/Vol] 46 mg/dL High 8-25 [facility] Comment on above: Order Comment: [facility] has implemented the eGFR calculation approach that does not have a coefficient for race that conforms to the NKF-ASN Task Force Recommendations. Performed By: #### 4 6124 ####[facility] [address] [place] [address] 60686 Glenn Gudino M.D. [id number] Urea nitrogen/Creatinine [Mass ratio] 26.6 mg/mg High 10.0-20.0 [facility] Comment on above: Order Comment: [facility] has implemented the eGFR calculation approach that does not have a coefficient for race that conforms to the NKF-ASN Task Force Recommendations. Performed By: #### 4 6124 ####[facility] [address] [place] [address] 18550 Glenn Gudino M.D. [id number] CALCIUM, IONIZEDon CALCIUM IONIZED 4.7 mg/dL Normal 4.5-5.3 [facility] Comment on above: Order Comment: Serum , non-CRRT source. Performed By: #### 4 5190 ####[facility] [address] [place] [address] Glenn Gudino M.D. [id number] CBCon 02-15-2024 AUTO NRBC 0.0 % Normal [facility] Comment on above: Performed By: #### 4 5218 ####[facility] [address] [place] [address] Glenn Gudino M.D. [id number] AUTO NRBC ABS COUNT 0.00 K/mcL Normal 0.00-0.00 [facility] Comment on above: Performed By: #### 4 [id number] ####[facility] [address] [place] [address] Glenn Gudino M.D. [id number] Erythrocyte distribution width (RBC) [Ratio] 19.5 % High 11.6-14.8 [facility] Comment on above: Performed By: #### 4 [id number] ####[facility] [address] [place], [place] [address] Glenn Gudino M.D. [id number] Hematocrit (Bld) [Volume fraction] 27.0 % Low 36.0-46.0 [facility] Comment on above: Performed By: #### 4 [id number] ####[facility] [address] [place], [place] [address] Glenn Gudino M.D. [id number] Hemoglobin (Bld) [Mass/Vol] 8.4 g/dL Low 12.0-16.0 [facility] Comment on above: Performed By: #### 4 [id number] ####[facility] [address] [place] [address] Glenn Gudino M.D. [id number] MCH (RBC) [Entitic mass] 29.1 pg Normal 26.0-34.0 [facility] Comment on above: Performed By: #### 4 [id number] ####[facility] [address] [place], [place] [address] Glenn Gudino M.D. [id number] MCV (RBC) [Entitic vol] 93.4 fL Normal 80.0-100.0 [facility] Comment on above: Performed By: #### 4 [id number] ####[facility] [address] [place] [address] Glenn Gudino M.D. [id number] MEAN CORPUSCULAR HEMOGLOBIN CONC 31.1 g/dL Normal 31.0-37.0 [facility] Comment on above: Performed By: #### 4 5218 ####[facility] [address] [place] [address] Glenn Gudino M.D. [id number] Platelet mean volume (Bld) [Entitic vol] 9.5 fL Normal 9.4-12.4 [facility] Comment on above: Performed By: #### 4 [id number] ####[facility] [address] [place], [place] [address]Karma Gudino M.D. [id number] Platelets (Bld) [#/Vol] 288 10*3/uL Normal 150-400 [facility] Comment on above: Performed By: #### 4 [id number] ####[facility] [address] [place], [place] [address] Glenn Gudino M.D. [id number] RBC (Bld) [#/Vol] 2.89 10*6/uL Low 4.00-5.20 [facility] Comment on above: Performed By: #### 4 [id number] ####[facility] [address] [place] [address] Glenn Gudino M.D. [id number] WBC (Bld) [#/Vol] 16.69 10*3/uL High 4.50-11.00 [facility] Comment on above: Performed By: #### 4 [id number] ####[facility] [address] [place] [address] Glenn Gudino M.D. [id number] MAGNESIUM LEVELon 02-15-2024 Magnesium [Mass/Vol] 2.0 mg/dL Normal 1.6-2.4 [facility] Comment on above: Performed By: #### 4 6109 ####[facility] [address] [place] [address] Glenn Gudino M.D. [id number] POC GLUCOSE - [facility] 024 Glucose [Mass/Vol] 113 mg/dL High 65-99 [facility] Comment on above: Performed By: #### 4 6932 ####[facility] [address] [place] [address] [id number] [facility] Glucose [Mass/Vol] 173 mg/dL High 65-99 [facility] Comment on above: Performed By: #### 4 6940 ####[facility] [address] [place] [address] [id number] [facility] Glucose [Mass/Vol] 82 mg/dL Normal 65-99 [facility] Comment on above: Performed By: #### 4 0418 ####[facility] [address] [place] [address] [id number] [facility] Glucose [Mass/Vol] 50 mg/dL Low 65-99 [facility] Comment on above: Performed By: #### 4 0054 ####[facility] [address] [place] [address] [id number] [facility] Glucose [Mass/Vol] 99 mg/dL Normal 65-99 [facility] Comment on above: Performed By: #### 4 8368 ####[facility] [address] [place] [address] 26338 [id number] [facility] Glucose [Mass/Vol] 179 mg/dL High 65-99 [facility] Comment on above: Performed By: #### 4 6932 ####[facility] [address] [place] [address] [id number] [facility] Glucose [Mass/Vol] 145 mg/dL High 65-99 [facility] Comment on above: Performed By: #### 4 6932 ####[facility] [address] [place] [address] [id number] [facility] RENAL FUNCTION PANELon 02-14 Albumin [Mass/Vol] 2.2 g/dL Low 3.2-5.2 [facility] Comment on above: Order Comment: [facility] has implemented the eGFR calculation approach that does not have a coefficient for race that conforms to the NKF-ASN Task Force Recommendations. Performed By: #### 4 6449 ####[facility] [address] [place] [address] Glenn Gudino M.D. [id number] Anion gap [Moles/Vol] 13 mmol/L Normal 10-20 [facility] Comment on above: Order Comment: [facility] has implemented the eGFR calculation approach that does not have a coefficient for race that conforms to the NKF-ASN Task Force Recommendations. Performed By: #### 4 6449 ####[facility] [address] [place] [address] Glenn Gudino M.D. [id number] Calcium [Mass/Vol] 7.9 mg/dL Low 8.4-10.2 [facility] Comment on above: Order Comment: [facility] has implemented the eGFR calculation approach that does not have a coefficient for race that conforms to the NKF-ASN Task Force Recommendations. Performed By: #### 4 6449 ####[facility] [address] [place] [address] Glenn Gudino M.D. [id number] Chloride [Moles/Vol] 101 mmol/L Normal 98-108 [facility] Comment on above: Order Comment: [facility] has implemented the eGFR calculation approach that does not have a coefficient for race that conforms to the NKF-ASN Task Force Recommendations. Performed By: #### 4 6449 ####[facility] [address] [place], [place] [address] Glenn Gudino M.D. [id number] Creatinine [Mass/Vol] 1.60 mg/dL High 0.60-1.10 [facility] Comment on above: Order Comment: [facility] has implemented the eGFR calculation approach that does not have a coefficient for race that conforms to the NKF-ASN Task Force Recommendations. Performed By: #### 4 6449 ####[facility] [address] [place], [place] [address] Glenn Gudino M.D. [id number] EGFR 37 mL/min/1.73 m2 Low >=60 [facility] Comment on above: Order Comment: [facility] has implemented the eGFR calculation approach that does not have a coefficient for race that conforms to the NKF-ASN Task Force Recommendations. Result Comment: Joi mated GFR was calculated using the 2020 CKD-EPI creatinine equation. Performed By: #### 4 6449 ####[facility] [address] [place], [place] [address] Glenn Gudino M.D. [id number] Glucose [Mass/Vol] 95 mg/dL Normal 65-99 [facility] Comment on above: Order Comment: [facility] has implemented the eGFR calculation approach that does not have a coefficient for race that conforms to the NKF-ASN Task Force Recommendations. Performed By: #### 4 6449 ####[facility] [address] [place] [address] 05348 Glenn Gudino M.D. [id number] HCO3 (Bld) [Moles/Vol] 27 mmol/L Normal 21-32 [facility] Comment on above: Order Comment: [facility] has implemented the eGFR calculation approach that does not have a coefficient for race that conforms to the NKF-ASN Task Force Recommendations. Performed By: #### 4 6449 ####[facility] [address] [place] [address] 31430 Glenn Gudino M.D. [id number] Phosphate [Mass/Vol] 2.1 mg/dL Low 2.8-4.1 [facility] Comment on above: Order Comment: [facility] has implemented the eGFR calculation approach that does not have a coefficient for race that conforms to the NKF-ASN Task Force Recommendations. Performed By: #### 4 6449 ####[facility] [address] [place] [address] 41008 Glenn Gudino M.D. [id number] Potassium [Moles/Vol] 2.8 mmol/L Low 3.5-5.1 [facility] Comment on above: Order Comment: [facility] has implemented the eGFR calculation approach that does not have a coefficient for race that conforms to the NKF-ASN Task Force Recommendations. Performed By: #### 4 6449 ####[facility] [address] [place] [address] 90440 Glenn Gudino M.D. [id number] Sodium [Moles/Vol] 138 mmol/L Normal 135-145 [facility] Comment on above: Order Comment: [facility] has implemented the eGFR calculation approach that does not have a coefficient for race that conforms to the NKF-ASN Task Force Recommendations. Performed By: #### 4 6449 ####[facility] [address] [place] [address] 12187 Glenn Gudino M.D. [id number] Urea nitrogen [Mass/Vol] 44 mg/dL High 8-25 [facility] Comment on above: Order Comment: [facility] has implemented the eGFR calculation approach that does not have a coefficient for race that conforms to the NKF-ASN Task Force Recommendations. Performed By: #### 4 6449 ####[facility] [address] [place], [place] [id number] Glenn Gudino M.D. [id number] Urea nitrogen/Creatinine [Mass ratio] 27.5 mg/mg High 10.0-20.0 [facility] Comment on above: Order Comment: [facility] has implemented the eGFR calculation approach that does not have a coefficient for race that conforms to the NKF-ASN Task Force Recommendations. Performed By: #### 4 6449 ####[facility] [address] [place] [address] Glenn Gudino M.D. [id number] TYPE AND SCREENon 02-15-2024 TYPE AND SCREEN ABORH: O Positive AB SCREEN: Positive EXPIRATION DATE: 02/18/2024 23:59 EST Normal [facility] Comment on above: Performed By: #### 4 6619 ####[facility] [address] [place] [address] Nurys Oneill MD [id number] RMHTS XR CHEST PA/APon 02-15-2024 XR CHEST PA/AP [facility] Comment on above: Order Comment: Injur [...] IONIZEDon CALCIUM IONIZED 4.9 mg/dL Normal 4.5-5.3 [facility] Comment on above: Order Comment: Serum , non-CRRT source. Performed By: #### 4 5190 ####[facility] [address] [place], [place] [address] Glenn Gudino M.D. [id number] CBCon 02-14-2024 AUTO NRBC 0.0 % Normal [facility] Comment on above: Performed By: #### 4 [id number] ####[facility] [address] [place] [address] Glenn Gudino M.D. [id number] AUTO NRBC ABS COUNT 0.00 K/mcL Normal 0.00-0.00 [facility] Comment on above: Performed By: #### 4 [id number] ####[facility] [address] [place] [address] Glenn Gudino M.D. [id number] Erythrocyte distribution width (RBC) [Ratio] 20.9 % High 11.6-14.8 [facility] Comment on above: Performed By: #### 4 [id number] ####[facility] [address] [place], [place] [address] Glenn Gudino M.D. [id number] Hematocrit (Bld) [Volume fraction] 23.1 % Low 36.0-46.0 [facility] Comment on above: Performed By: #### 4 [id number] ####[facility] [address] [place], [place] [address] Glenn Gudino M.D. [id number] Hemoglobin (Bld) [Mass/Vol] 6.9 g/dL Off scale low 12.0-16.0 [facility] Comment on above: Result Comment: Resu lts called and read back verified by:.[id number] TO [id number] @ 0621 Performed By: #### 4 [id number] ####[facility] [address] [place], [place] [address] Glenn Gudino M.D. [id number] MCH (RBC) [Entitic mass] 28.4 pg Normal 26.0-34.0 [facility] Comment on above: Performed By: #### 4 [id number] ####[facility] [address] [place] [address] Glenn Gudino M.D. [id number] MCV (RBC) [Entitic vol] 95.1 fL Normal 80.0-100.0 [facility] Comment on above: Performed By: #### 4 [id number] ####[facility] [address] [place], [place] [address] Glenn Gudino M.D. [id number] MEAN CORPUSCULAR HEMOGLOBIN CONC 29.9 g/dL Low 31.0-37.0 [facility] Comment on above: Performed By: #### 4 [id number] ####[facility] [address] [place] [address] Glenn Gudino M.D. [id number] Platelet mean volume (Bld) [Entitic vol] 9.8 fL Normal 9.4-12.4 [facility] Comment on above: Performed By: #### 4 [id number] ####[facility] [address] [place], [place] [address] Glenn Gudino M.D. [id number] Platelets (Bld) [#/Vol] 346 10*3/uL Normal 150-400 [facility] Comment on above: Performed By: #### 4 [id number] ####[facility] [address] [place] [address] Glenn Gudino M.D. [id number] RBC (Bld) [#/Vol] 2.43 10*6/uL Low 4.00-5.20 [facility] Comment on above: Performed By: #### 4 [id number] ####[facility] [address] [place], [place] [address] Glenn Gudino M.D. [id number] WBC (Bld) [#/Vol] 21.68 10*3/uL High 4.50-11.00 [facility] Comment on above: Performed By: #### 4 [id number] ####[facility] [address] [place] [address] Glenn Gudino M.D. [id number] MAGNESIUM LEVELon 02-14-2024 Magnesium [Mass/Vol] 2.3 mg/dL Normal 1.6-2.4 [facility] Comment on above: Performed By: #### 4 6109 ####[facility] [address] [place] [address] Glenn Gudino M.D. [id number] POC GLUCOSE - [facility] 024 Glucose [Mass/Vol] 245 mg/dL High [address] [place] [address] Comment on above: Performed By: #### 4 6916 ####[facility] [address] [place] [address] [id number] [facility] Glucose [Mass/Vol] 128 mg/dL High [address] [place] [address] Comment on above: Performed By: #### 4 0264 ####[facility] [address] [place] [address] [id number] [facility] Glucose [Mass/Vol] 156 mg/dL High [address] [place] [address] Comment on above: Performed By: #### 4 3478 ####[facility] [address] [place] [address] [id number] [facility] Glucose [Mass/Vol] 207 mg/dL High [address] [place] [address] Comment on above: Performed By: #### 4 2307 ####[facility] [address] [place] [address] [id number] [facility] Glucose [Mass/Vol] 233 mg/dL [address] Comment on above: Performed By: #### 4 4048 ####[facility] [address] [place] [address] [id number] [facility] Glucose [Mass/Vol] 179 mg/dL High 65-99 [facility] Comment on above: Performed By: #### 4 6932 ####[facility] [address] [place] [address] [id number] [facility] Glucose [Mass/Vol] 187 mg/dL High 65-99 [facility] Comment on above: Performed By: #### 4 6932 ####[facility] [address] [place] [address] [id number] [facility] RENAL FUNCTION PANELon 02-13 Albumin [Mass/Vol] 2.2 g/dL Low 3.2-5.2 [facility] Comment on above: Order Comment: [facility] has implemented the eGFR calculation approach that does not have a coefficient for race that conforms to the NKF-ASN Task Force Recommendations. Performed By: #### 4 6449 ####[facility] [address] [place] [address] Glenn Gudino M.D. [id number] Anion gap [Moles/Vol] 18 mmol/L Normal 10-20 [facility] Comment on above: Order Comment: [facility] has implemented the eGFR calculation approach that does not have a coefficient for race that conforms to the NKF-ASN Task Force Recommendations. Performed By: #### 4 6449 ####[facility] [address] [place] [address] Glenn Gudino M.D. [id number] Calcium [Mass/Vol] 8.4 mg/dL Normal 8.4-10.2 [facility] Comment on above: Order Comment: [facility] has implemented the eGFR calculation approach that does not have a coefficient for race that conforms to the NKF-ASN Task Force Recommendations. Performed By: #### 4 6449 ####[facility] [address] [place], [place] [address] Glenn Gudino M.D. [id number] Chloride [Moles/Vol] 102 mmol/L Normal 98-108 [facility] Comment on above: Order Comment: [facility] has implemented the eGFR calculation approach that does not have a coefficient for race that conforms to the NKF-ASN Task Force Recommendations. Performed By: #### 4 6449 ####[facility] [address] [place] [address] Glenn Gudino M.D. [id number] Creatinine [Mass/Vol] 2.41 mg/dL High 0.60-1.10 [facility] Comment on above: Order Comment: [facility] has implemented the eGFR calculation approach that does not have a coefficient for race that conforms to the NKF-ASN Task Force Recommendations. Performed By: #### 4 6449 ####[facility] [address] [place], [place] [address] Glenn Gudino M.D. [id number] EGFR 22 mL/min/1.73 m2 Low >=60 [facility] Comment on above: Order Comment: [facility] has implemented the eGFR calculation approach that does not have a coefficient for race that conforms to the NKF-ASN Task Force Recommendations. Result Comment: Joi mated GFR was calculated using the 2020 CKD-EPI creatinine equation. Performed By: #### 4 6449 ####[facility] [address] [place] [address] Glenn Gudino M.D. [id number] Glucose [Mass/Vol] 202 mg/dL High 65-99 [facility] Comment on above: Order Comment: [facility] has implemented the eGFR calculation approach that does not have a coefficient for race that conforms to the NKF-ASN Task Force Recommendations. Performed By: #### 4 6449 ####[facility] [address] [place] [address] Glenn Gudino M.D. [id number] HCO3 (Bld) [Moles/Vol] 22 mmol/L Normal 21-32 [facility] Comment on above: Order Comment: [facility] has implemented the eGFR calculation approach that does not have a coefficient for race that conforms to the NKF-ASN Task Force Recommendations. Performed By: #### 4 6449 ####[facility] [address] [place] [address] Glenn Gudino M.D. [id number] Phosphate [Mass/Vol] 4.7 mg/dL High 2.8-4.1 [facility] Comment on above: Order Comment: [facility] has implemented the eGFR calculation approach that does not have a coefficient for race that conforms to the NKF-ASN Task Force Recommendations. Performed By: #### 4 6449 ####[facility] [address] [place] [address] Glenn Gudino M.D. [id number] Potassium [Moles/Vol] 4.0 mmol/L Normal 3.5-5.1 [facility] Comment on above: Order Comment: [facility] has implemented the eGFR calculation approach that does not have a coefficient for race that conforms to the NKF-ASN Task Force Recommendations. Performed By: #### 4 6449 ####[facility] [address] [place] [address] Glenn Gudino M.D. [id number] Sodium [Moles/Vol] 138 mmol/L Normal 135-145 [facility] Comment on above: Order Comment: [facility] has implemented the eGFR calculation approach that does not have a coefficient for race that conforms to the NKF-ASN Task Force Recommendations. Performed By: #### 4 6449 ####[facility] [address] [place] [address] Glenn Gudino M.D. [id number] Urea nitrogen [Mass/Vol] 64 mg/dL High 8-25 [facility] Comment on above: Order Comment: [facility] has implemented the eGFR calculation approach that does not have a coefficient for race that conforms to the NKF-ASN Task Force Recommendations. Performed By: #### 4 6449 ####[facility] [address] [place] [address] Glenn Gudino M.D. [id number] Urea nitrogen/Creatinine [Mass ratio] 26.6 mg/mg High 10.0-20.0 [facility] Comment on above: Order Comment: [facility] has implemented the eGFR calculation approach that does not have a coefficient for race that conforms to the NKF-ASN Task Force Recommendations. Performed By: #### 4 6449 ####[facility] [address] [place] [address] Glenn Gudino M.D. [id number] XR CHEST PA/APon 02-14-2024 XR CHEST PA/AP Normal [facility] Comment on above: Order Comment: Injur y/Trauma or Illness?:Illness/OtherHow long have you had these symptoms (acute/chronic)?:UnknownReason for exam?:chest tube palcement, pneumothoraxHistory of cancer?:uSurgeries, chemotherapy, or radiation?:uType of Exam?:InitialAdditional signs and symptoms?:. CALCIUM, IONIZEDon CALCIUM IONIZED 4.8 mg/dL Normal 4.5-5.3 [facility] Comment on above: Order Comment: Serum , non-CRRT source. Performed By: #### 4 5190 ####[facility] [address] [place] [address] Glenn Gudino M.D. [id number] CBCon 02-13-2024 AUTO NRBC 0.0 % Normal [facility] Comment on above: Performed By: #### 4 [id number] ####[facility] [address] [place] [address] Glenn Gudino M.D. [id number] AUTO NRBC ABS COUNT 0.00 K/mcL Normal 0.00-0.00 [facility] Comment on above: Performed By: #### 4 [id number] ####[facility] [address] [place] [address] Glenn Gudino M.D. [id number] Erythrocyte distribution width (RBC) [Ratio] 19.4 % High 11.6-14.8 [facility] Comment on above: Performed By: #### 4 [id number] ####[facility] [address] [place] [address] Glenn Gudino M.D. [id number] Hematocrit (Bld) [Volume fraction] 22.7 % Low 36.0-46.0 [facility] Comment on above: Performed By: #### 4 [id number] ####[facility] [address] [place] [address] Glenn Gudino M.D. [id number] Hemoglobin (Bld) [Mass/Vol] 7.0 g/dL Low 12.0-16.0 [facility] Comment on above: Performed By: #### 4 [id number] ####[facility] [address] [place], [place] [address] Glenn Gudino M.D. [id number] MCH (RBC) [Entitic mass] 28.6 pg Normal 26.0-34.0 [facility] Comment on above: Performed By: #### 4 [id number] ####[facility] [address] [place] [address] Glenn Gudino M.D. [id number] MCV (RBC) [Entitic vol] 92.7 fL Normal 80.0-100.0 [facility] Comment on above: Performed By: #### 4 [id number] ####[facility] [address] [place] [address] Glenn Gudino M.D. [id number] MEAN CORPUSCULAR HEMOGLOBIN CONC 30.8 g/dL Low 31.0-37.0 [facility] Comment on above: Performed By: #### 4 [id number] ####[facility] [address] [place] [address] Glenn Gudino M.D. [id number] Platelet mean volume (Bld) [Entitic vol] 9.7 fL Normal 9.4-12.4 [facility] Comment on above: Performed By: #### 4 [id number] ####[facility] [address] [place], [place] [address] Glenn Gudino M.D. [id number] Platelets (Bld) [#/Vol] 318 10*3/uL Normal 150-400 [facility] Comment on above: Performed By: #### 4 [id number] ####[facility] [address] [place], [place] [address] Glenn Gudino M.D. [id number] RBC (Bld) [#/Vol] 2.45 10*6/uL Low 4.00-5.20 [facility] Comment on above: Performed By: #### 4 [id number] ####[facility] [address] [place], [place] [address] Glenn Gudino M.D. [id number] WBC (Bld) [#/Vol] 19.00 10*3/uL High 4.50-11.00 [facility] Comment on above: Result Comment: Left Shift.Peripheral smear reviewed manually Performed By: #### 4 [id number] ####[facility] [address] [place] [address] Glenn Gudino M.D. [id number] MAGNESIUM LEVELon 02-13-2024 Magnesium [Mass/Vol] 2.3 mg/dL Normal 1.6-2.4 [facility] Comment on above: Performed By: #### 4 6109 ####[facility] [address] [place] [address] Glenn Gudino M.D. [id number] [facility] Glucose [Mass/Vol] 202 mg/dL High 65-99 [facility] Comment on above: Performed By: #### 4 6932 ####[facility] [address] [place] [address] [id number] [facility] Glucose [Mass/Vol] 220 mg/dL [address] Comment on above: Performed By: #### 4 6932 ####[facility] [address] [place] [address] [id number] [facility] Glucose [Mass/Vol] 224 mg/dL [address] Comment on above: Performed By: #### 4 6932 ####[facility] [address] [place] [address] [id number] [facility] Glucose [Mass/Vol] 179 mg/dL [address] Comment on above: Performed By: #### 4 6932 ####[facility] [address] [place] [address] [id number] [facility] Glucose [Mass/Vol] 169 mg/dL [address] Comment on above: Performed By: #### 4 6932 ####[facility] [address] [place] [address] [id number] [facility] RENAL FUNCTION PANEL 02-12 Albumin [Mass/Vol] 2.8 g/dL Low 3.2-5.2 [facility] Comment on above: Order Comment: [facility] has implemented the eGFR calculation approach that does not have a coefficient for race that conforms to the NKF-ASN Task Force Recommendations. Performed By: #### 4 6449 ####[facility] [address] [place] [address] Glenn Gudino M.D. [id number] Anion gap [Moles/Vol] 17 mmol/L Normal 10-20 [facility] Comment on above: Order Comment: [facility] has implemented the eGFR calculation approach that does not have a coefficient for race that conforms to the NKF-ASN Task Force Recommendations. Performed By: #### 4 6449 ####[facility] [address] [place], [place] [address] Glenn Gudino M.D. [id number] Calcium [Mass/Vol] 8.7 mg/dL Normal 8.4-10.2 [facility] Comment on above: Order Comment: [facility] has implemented the eGFR calculation approach that does not have a coefficient for race that conforms to the NKF-ASN Task Force Recommendations. Performed By: #### 4 6449 ####[facility] [address] [place], [place] [address] Glenn Gudino M.D. [id number] Chloride [Moles/Vol] 101 mmol/L Normal 98-108 [facility] Comment on above: Order Comment: [facility] has implemented the eGFR calculation approach that does not have a coefficient for race that conforms to the NKF-ASN Task Force Recommendations. Performed By: #### 4 6449 ####[facility] [address] [place], [place] [address] Glenn Gudino M.D. [id number] Creatinine [Mass/Vol] 1.98 mg/dL High 0.60-1.10 [facility] Comment on above: Order Comment: [facility] has implemented the eGFR calculation approach that does not have a coefficient for race that conforms to the NKF-ASN Task Force Recommendations. Performed By: #### 4 6449 ####[facility] [address] [place], [place] [address] Glenn Gudino M.D. [id number] EGFR 28 mL/min/1.73 m2 Low >=60 [facility] Comment on above: Order Comment: [facility] has implemented the eGFR calculation approach that does not have a coefficient for race that conforms to the NKF-ASN Task Force Recommendations. Result Comment: Joi mated GFR was calculated using the 2020 CKD-EPI creatinine equation. Performed By: #### 4 6449 ####[facility] [address] [place], [place] [address] Glenn Gudino M.D. [id number] Glucose [Mass/Vol] 170 mg/dL High 65-99 [facility] Comment on above: Order Comment: [facility] has implemented the eGFR calculation approach that does not have a coefficient for race that conforms to the NKF-ASN Task Force Recommendations. Performed By: #### 4 6449 ####[facility] [address] [place] [address] Glenn Gudino M.D. [id number] HCO3 (Bld) [Moles/Vol] 25 mmol/L Normal 21-32 [facility] Comment on above: Order Comment: [facility] has implemented the eGFR calculation approach that does not have a coefficient for race that conforms to the NKF-ASN Task Force Recommendations. Performed By: #### 4 6449 ####[facility] [address] [place] [address] Glenn Gudino M.D. [id number] Phosphate [Mass/Vol] 4.0 mg/dL Normal 2.8-4.1 [facility] Comment on above: Order Comment: [facility] has implemented the eGFR calculation approach that does not have a coefficient for race that conforms to the NKF-ASN Task Force Recommendations. Performed By: #### 4 6449 ####[facility] [address] [place], [place] [address] Glenn Gudino M.D. [id number] Potassium [Moles/Vol] 4.5 mmol/L Normal 3.5-5.1 [facility] Comment on above: Order Comment: [facility] has implemented the eGFR calculation approach that does not have a coefficient for race that conforms to the NKF-ASN Task Force Recommendations. Performed By: #### 4 6449 ####[facility] [address] [place], [place] [address] Glenn Gudino M.D. [id number] Sodium [Moles/Vol] 138 mmol/L Normal 135-145 [facility] Comment on above: Order Comment: [facility] has implemented the eGFR calculation approach that does not have a coefficient for race that conforms to the NKF-ASN Task Force Recommendations. Performed By: #### 4 6449 ####[facility] [address] [place] [address] Glenn Gudino M.D. [id number] Urea nitrogen [Mass/Vol] 48 mg/dL High 8-25 [facility] Comment on above: Order Comment: [facility] has implemented the eGFR calculation approach that does not have a coefficient for race that conforms to the NKF-ASN Task Force Recommendations. Performed By: #### 4 6449 ####[facility] [address] [place] [address] Glenn Gudino M.D. [id number] Urea nitrogen/Creatinine [Mass ratio] 24.2 mg/mg High 10.0-20.0 [facility] Comment on above: Order Comment: [facility] has implemented the eGFR calculation approach that does not have a coefficient for race that conforms to the NKF-ASN Task Force Recommendations. Performed By: #### 4 6449 ####[facility] [address] [place] [address] Glenn Gudino M.D. [id number] XR CHEST PA/APon 02-13-2024 XR CHEST PA/AP [facility] Comment on above: Order Comment: Injur y/Trauma or Illness?:Illness/OtherHow long have you had these symptoms (acute/chronic)?:UnknownReason for exam?:chest tube palcement, pneumothoraxHistory of cancer?:uSurgeries, chemotherapy, or radiation?:uType of Exam?:OngoingAdditional signs and symptoms?:chest tube palcement, pneumothorax ANTIBODY IDENTIFICATION-Con 02-12-2024 ANTIBODY IDENTIFICATION-C [facility] Comment on above: Performed By: #### 4 6427_Anti-C ####[facility] [address] [place] [address] Nurys Oneill MD [id number] [facility] CALCIUM, IONIZEDon CALCIUM IONIZED 4.7 mg/dL Normal 4.5-5.3 [facility] Comment on above: Order Comment: Serum , non-CRRT source. Performed By: #### 4 5190 ####[facility] [address] [place] [address] Glenn Gudino M.D. [id number] CBCon 02-12-2024 AUTO NRBC 0.1 % Normal [facility] Comment on above: Performed By: #### 4 [id number] ####[facility] [address] [place] [address] Glenn Gudino M.D. [id number] AUTO NRBC ABS COUNT 0.02 K/mcL High 0.00-0.00 [facility] Comment on above: Performed By: #### 4 [id number] ####[facility] [address] [place] [address] Glenn Gudino M.D. [id number] Erythrocyte distribution width (RBC) [Ratio] 19.2 % High 11.6-14.8 [facility] Comment on above: Performed By: #### 4 [id number] ####[facility] [address] [place] [address] Glenn Gudino M.D. [id number] Hematocrit (Bld) [Volume fraction] 23.6 % Low 36.0-46.0 [facility] Comment on above: Performed By: #### 4 [id number] ####[facility] [address] [place] [address] Glenn Gudino M.D. [id number] Hemoglobin (Bld) [Mass/Vol] 7.3 g/dL Low 12.0-16.0 [facility] Comment on above: Performed By: #### 4 [id number] ####[facility] [address] [place] [address] Glenn Gudino M.D. [id number] MCH (RBC) [Entitic mass] 28.6 pg Normal 26.0-34.0 [facility] Comment on above: Performed By: #### 4 [id number] ####[facility] [address] [place] [address] Glenn Gudino M.D. [id number] MCV (RBC) [Entitic vol] 92.5 fL Normal 80.0-100.0 [facility] Comment on above: Performed By: #### 4 [id number] ####[facility] [address] [place] [address] Glenn Gudino M.D. [id number] MEAN CORPUSCULAR HEMOGLOBIN CONC 30.9 g/dL Low 31.0-37.0 [facility] Comment on above: Performed By: #### 4 [id number] ####[facility] [address] [place] [address] Glenn Gudino M.D. [id number] Platelet mean volume (Bld) [Entitic vol] 9.7 fL Normal 9.4-12.4 [facility] Comment on above: Performed By: #### 4 [id number] ####[facility] [address] [place] [address] Glenn Gudino M.D. [id number] Platelets (Bld) [#/Vol] 317 10*3/uL Normal 150-400 [facility] Comment on above: Performed By: #### 4 [id number] ####[facility] [address] [place], [place] [address] Glenn Gudino M.D. [id number] RBC (Bld) [#/Vol] 2.55 10*6/uL Low 4.00-5.20 [facility] Comment on above: Performed By: #### 4 [id number] ####[facility] [address] [place] [address] Glenn Gudino M.D. [id number] WBC (Bld) [#/Vol] 17.16 10*3/uL High 4.50-11.00 [facility] Comment on above: Performed By: #### 4 [id number] ####[facility] [address] [place] [address] Glenn Gudino M.D. [id number] COMPREHENSIVE METABOLIC PANE Magdaleno 02-12-2024 Albumin [Mass/Vol] 2.6 g/dL Low 3.2-5.2 [facility] Comment on above: Order Comment: [facility] has implemented the eGFR calculation approach that does not have a coefficient for race that conforms to the NKF-ASN Task Force Recommendations. Performed By: #### 4 6126 ####[facility] [address] [place], [place] [address] Glenn Gudino M.D. [id number] Performed By: #### 4 6449 ####[facility] [address] [place], [place] [address] Glenn Gudino M.D. [id number] ALP [Catalytic activity/Vol] 76 U/L Normal 40-150 [facility] Comment on above: Order Comment: [facility] has implemented the eGFR calculation approach that does not have a coefficient for race that conforms to the NKF-ASN Task Force Recommendations. Performed By: #### 4 6126 ####[facility] [address] [place], [place] [address] Glenn Gudino M.D. [id number] ALT [Catalytic activity/Vol] 15 U/L Normal 0-35 U/L [facility] Comment on above: Order Comment: [facility] has implemented the eGFR calculation approach that does not have a coefficient for race that conforms to the NKF-ASN Task Force Recommendations. Performed By: #### 4 6126 ####[facility] [address] [place], [place] [address] Glenn Gudino M.D. [id number] Anion gap [Moles/Vol] 20 mmol/L Normal 10-20 [facility] Comment on above: Order Comment: [facility] has implemented the eGFR calculation approach that does not have a coefficient for race that conforms to the NKF-ASN Task Force Recommendations. Performed By: #### 4 6126 ####[facility] [address] [place] [address] Glenn Gudino M.D. [id number] Performed By: #### 4 6449 ####[facility] [address] [place], [place] [address] Glenn Gudino M.D. [id number] AST [Catalytic activity/Vol] 32 U/L Normal 0-35 U/L [facility] Comment on above: Order Comment: [facility] has implemented the eGFR calculation approach that does not have a coefficient for race that conforms to the NKF-ASN Task Force Recommendations. Performed By: #### 4 6126 ####[facility] [address] [place] [address] Glenn Gudino M.D. [id number] Bilirubin [Mass/Vol] 0.4 mg/dL Normal 0.0-1.3 [facility] Comment on above: Order Comment: [facility] has implemented the eGFR calculation approach that does not have a coefficient for race that conforms to the NKF-ASN Task Force Recommendations. Performed By: #### 4 6126 ####[facility] [address] [place] [address] Glenn Gudino M.D. [id number] Calcium [Mass/Vol] 8.3 mg/dL Low 8.4-10.2 [facility] Comment on above: Order Comment: [facility] has implemented the eGFR calculation approach that does not have a coefficient for race that conforms to the NKF-ASN Task Force Recommendations. Performed By: #### 4 6126 ####[facility] [address] [place] [address] Glenn Gudino M.D. [id number] Performed By: #### 4 6449 ####[facility] [address] [place], [place] [address] Glenn Gudino M.D. [id number] Chloride [Moles/Vol] 106 mmol/L Normal 98-108 [facility] Comment on above: Order Comment: [facility] has implemented the eGFR calculation approach that does not have a coefficient for race that conforms to the NKF-ASN Task Force Recommendations. Performed By: #### 4 6126 ####[facility] [address] [place] [address] Glenn Gudino M.D. [id number] Performed By: #### 4 6449 ####[facility] [address] [place] [address] Glenn Gudino M.D. [id number] Creatinine [Mass/Vol] 2.81 mg/dL High 0.60-1.10 [facility] Comment on above: Order Comment: [facility] has implemented the eGFR calculation approach that does not have a coefficient for race that conforms to the NKF-ASN Task Force Recommendations. Performed By: #### 4 6126 ####[facility] [address] [place], [place] [address] Glenn Gudino M.D. [id number] Performed By: #### 4 6449 ####[facility] [address] [place], [place] [address] Glenn Gudino M.D. [id number] EGFR 19 mL/min/1.73 m2 Low >=60 [facility] Comment on above: Order Comment: [facility] has implemented the eGFR calculation approach that does not have a coefficient for race that conforms to the NKF-ASN Task Force Recommendations. Result Comment: Joi mated GFR was calculated using the 2020 CKD-EPI creatinine equation. Performed By: #### 4 6126 ####[facility] [address] [place] [address] Glenn Gudino M.D. [id number] Result Comment: Joi mated GFR was calculated using the 2020 CKD-EPI creatinine equation.Estimated GFR was calculated using the 2020 CKD-EPI creatinine equation. Performed By: #### 4 6449 ####[facility] [address] [place] [address] Glenn Gudino M.D. [id number] Glucose [Mass/Vol] 168 mg/dL High 65-99 [facility] Comment on above: Order Comment: [facility] has implemented the eGFR calculation approach that does not have a coefficient for race that conforms to the NKF-ASN Task Force Recommendations. Performed By: #### 4 6126 ####[facility] [address] [place], [place] [address] Glenn Gudino M.D. [id number] Performed By: #### 4 6449 ####[facility] [address] [place], [place] [address] Glenn Gudino M.D. [id number] HCO3 (Bld) [Moles/Vol] 19 mmol/L Low 21-32 [facility] Comment on above: Order Comment: [facility] has implemented the eGFR calculation approach that does not have a coefficient for race that conforms to the NKF-ASN Task Force Recommendations. Performed By: #### 4 6126 ####[facility] [address] [place] [address] Glenn Gudino M.D. [id number] Performed By: #### 4 6449 ####[facility] [address] [place] [address] Glenn Gudino M.D. [id number] Potassium [Moles/Vol] 6.0 mmol/L High 3.5-5.1 [facility] Comment on above: Order Comment: [facility] has implemented the eGFR calculation approach that does not have a coefficient for race that conforms to the NKF-ASN Task Force Recommendations. Performed By: #### 4 6126 ####[facility] [address] [place] [address] Glenn Gudino M.D. [id number] Performed By: #### 4 6449 ####[facility] [address] [place] [address] Glenn Gudino M.D. [id number] Protein [Mass/Vol] 6.1 g/dL Normal 6.0-8.0 [facility] Comment on above: Order Comment: [facility] has implemented the eGFR calculation approach that does not have a coefficient for race that conforms to the NKF-ASN Task Force Recommendations. Performed By: #### 4 6126 ####[facility] [address] [place] [address] Glenn Gudino M.D. [id number] Sodium [Moles/Vol] 139 mmol/L Normal 135-145 [facility] Comment on above: Order Comment: [facility] has implemented the eGFR calculation approach that does not have a coefficient for race that conforms to the NKF-ASN Task Force Recommendations. Performed By: #### 4 6126 ####[facility] [address] [place], [place] [address] Glenn Gudino M.D. [id number] Performed By: #### 4 6449 ####[facility] [address] [place] [address] Glenn Gudino M.D. [id number] Urea nitrogen [Mass/Vol] 74 mg/dL High 8-25 [facility] Comment on above: Order Comment: [facility] has implemented the eGFR calculation approach that does not have a coefficient for race that conforms to the NKF-ASN Task Force Recommendations. Performed By: #### 4 6126 ####[facility] [address] [place], [place] [address] Glenn Gudino M.D. [id number] Performed By: #### 4 6449 ####[facility] [address] [place], [place] [address] Glenn Gudino M.D. [id number] Urea nitrogen/Creatinine [Mass ratio] 26.3 mg/mg High 10.0-20.0 [facility] Comment on above: Order Comment: [facility] has implemented the eGFR calculation approach that does not have a coefficient for race that conforms to the NKF-ASN Task Force Recommendations. Performed By: #### 4 6126 ####[facility] [address] [place] [address] Glenn Gudino M.D. [id number] Performed By: #### 4 6449 ####[facility] [address] [place], [place] [address] Glenn Gudino M.D. [id number] HEPATITIS B CORE ANTIBODY, T OTALon 02-12-2024 HEPATITIS B CORE TOTAL ANTIBODY Negative Normal Negative [facility] Comment on above: Order Comment: Test performed using Adele ANNALISE immunoassay system Performed By: #### 4 5873 ####[facility] [address] [place], [place] [address] Glenn Gudino M.D. [id number] HEPATITIS B E ANTIGENon 01-27 HEPATITIS BE ANTIGEN Negative Normal Negative [facility] Comment on above: Performed By: #### 4 4083 ####[facility] [address] [place], [place] [address] Glenn Gudino M.D. [id number] HEPATITIS B SURFACE ANTIBODY on 02-12-2024 HEPATITIS B SURFACE ANTIBODY Negative Normal Negative [facility] Comment on above: Order Comment: Test performed using Adele ANNALISE immunoassay system Performed By: #### 4 5876 ####[facility] [address] [place], [place] [address] Glenn Gudino M.D. [id number] HEPATITIS B SURFACE ANTIGENo n 02-12-2024 HEPATITIS B SURFACE ANTIGEN Negative Normal Negative [facility] Comment on above: Order Comment: Test performed using Adele ANNALISE immunoassay system Performed By: #### 4 4081 ####[facility] [address] [place] [address] Glenn Gudino M.D. [id number] HEPATITIS BE ANTIBODYon 01-27 HEPATITIS BE ANTIBODY INTERPRETATION Negative Normal Negative [facility] Comment on above: Order Comment: Test performed using Adele ANNALISE immunoassay system Performed By: #### L [id number] ####[facility] [address] [place] [address] Glenn Gudino M.D. [id number] MAGNESIUM LEVELon 02-12-2024 Magnesium [Mass/Vol] 2.6 mg/dL High 1.6-2.4 [facility] Comment on above: Performed By: #### 4 6109 ####[facility] [address] [place] [address] Glenn Gudino M.D. [id number] POC GLUCOSE - [facility] 024 Glucose [Mass/Vol] 127 mg/dL High 65-99 [facility] Comment on above: Performed By: #### 4 5471 ####[facility] [address] [place] [address] [id number] RMHPOC Glucose [Mass/Vol] 185 mg/dL High 65-99 [facility] Comment on above: Performed By: #### 4 5829 ####[facility] [address] [place] [address] [id number] RMHPOC Glucose [Mass/Vol] 257 mg/dL High 65-99 [facility] Comment on above: Performed By: #### 4 1881 ####[facility] [address] [place] [address] [id number] RM[facility] Glucose [Mass/Vol] 75 mg/dL Normal 65-99 [facility] Comment on above: Performed By: #### 4 6932 ####[facility] [address] [place] [address] [id number] [facility] PREALBUMINon 02-12-2024 Prealbumin [Mass/Vol] 18.3 mg/dL Low 20.0-40.0 [facility] Comment on above: Performed By: #### 4 6355 ####[facility] [address] [place] [address] Glenn Gudino M.D. [id number] RENAL FUNCTION PANELon 02-11 Phosphate [Mass/Vol] 5.4 mg/dL High 2.8-4.1 [facility] Comment on above: Order Comment: [facility] has implemented the eGFR calculation approach that does not have a coefficient for race that conforms to the NKF-ASN Task Force Recommendations. Performed By: #### 4 6449 ####[facility] [address] [place] [address] Glenn Gudino M.D. [id number] TRIGLYCERIDESon 02-12-2024 Triglyceride [Mass/Vol] 150 mg/dL Normal 30-150 [facility] Comment on above: Result Comment: [facility] [employer] Cholesterol Education Program Guidelines: TriglycerideNormal: <150 mg/dLBorderline High: 150-199 mg/dLHigh: 200-499 mg/dLVery High: greater than or equal to 500 mg/dL Performed By: #### 4 6606 ####[facility] [address] [place] [address] Glenn Gudino M.D. [id number] TYPE AND SCREENon 02-12-2024 TYPE AND SCREEN ABORH: O Positive AB SCREEN: Positive EXPIRATION DATE: 02/15/2024 23:59 EST Normal [facility] Comment on above: Performed By: #### 4 6619 ####[facility] [address] [place] [address] Nurys Oneill MD [id number] [facility] XR CHEST PA/APon 02-12-2024 XR CHEST PA/AP Normal [facility] Comment on above: Order Comment: Injur y/Trauma or Illness?:Illness/OtherHow long have you had these symptoms (acute/chronic)?:AcuteReason for exam?:chest tube palcement, pneumothoraxHistory of cancer?:uSurgeries, chemotherapy, or radiation?:uType of Exam?:InitialAdditional signs and symptoms?:, CALCIUM, IONIZEDon CALCIUM IONIZED 4.7 mg/dL Normal 4.5-5.3 [facility] Comment on above: Order Comment: Serum , non-CRRT source. Performed By: #### 4 5190 ####[facility] [address] [place] [address] Glenn Gudino M.D. [id number] CBCon 02-11-2024 AUTO NRBC 0.1 % Normal [facility] Comment on above: Performed By: #### 4 5218 ####[facility] [address] [place], [place] [address] lGenn Gudino M.D. [id number] AUTO NRBC ABS COUNT 0.02 K/mcL High 0.00-0.00 [facility] Comment on above: Performed By: #### 4 5218 ####[facility] [address] [place], [place] [address] Glenn Gudino M.D. [id number] Erythrocyte distribution width (RBC) [Ratio] 19.1 % High 11.6-14.8 [facility] Comment on above: Performed By: #### 4 5218 ####[facility] [address] [place], [place] [address] Glenn Gudino M.D. [id number] Hematocrit (Bld) [Volume fraction] 25.0 % Low 36.0-46.0 [facility] Comment on above: Performed By: #### 4 5218 ####[facility] [address] [place], [place] [address] Glenn Gudino M.D. [id number] Hemoglobin (Bld) [Mass/Vol] 7.8 g/dL Low 12.0-16.0 [facility] Comment on above: Performed By: #### 4 5218 ####[facility] [address] [place] [address] Glenn Gudino M.D. [id number] MCH (RBC) [Entitic mass] 28.4 pg Normal 26.0-34.0 [facility] Comment on above: Performed By: #### 4 5218 ####[facility] [address] [place] [address] Glenn Gudino M.D. [id number] MCV (RBC) [Entitic vol] 90.9 fL Normal 80.0-100.0 [facility] Comment on above: Performed By: #### 4 5218 ####[facility] [address] [place], [place] [address] Glenn Gudino M.D. [id number] MEAN CORPUSCULAR HEMOGLOBIN CONC 31.2 g/dL Normal 31.0-37.0 [facility] Comment on above: Performed By: #### 4 5218 ####[facility] [address] [place], [place] [address] Glenn Gudino M.D. [id number] Platelet mean volume (Bld) [Entitic vol] 9.6 fL Normal 9.4-12.4 [facility] Comment on above: Performed By: #### 4 5218 ####[facility] [address] [place], [place] [address] Glenn Gudino M.D. [id number] Platelets (Bld) [#/Vol] 375 10*3/uL Normal 150-400 [facility] Comment on above: Performed By: #### 4 4018 ####[facility] [address] [place] [address] Glenn Gudino M.D. [id number] RBC (Bld) [#/Vol] 2.75 10*6/uL Low 4.00-5.20 [facility] Comment on above: Performed By: #### 4 5218 ####[facility] [address] [place], [place] [address] Glenn Gudino M.D. [id number] WBC (Bld) [#/Vol] 17.69 10*3/uL High 4.50-11.00 [facility] Comment on above: Performed By: #### 4 5218 ####[facility] [address] [place] [address] Glenn Gudino M.D. [id number] MAGNESIUM LEVELon 02-11-2024 Magnesium [Mass/Vol] 2.4 mg/dL Normal 1.6-2.4 [facility] Comment on above: Performed By: #### 4 6109 ####[facility] [address] [place] [address] Glenn Gudino M.D. [id number] POC GLUCOSE [facility] 024 Glucose [Mass/Vol] 194 mg/dL High [address] [place] [address] Comment on above: Performed By: #### 4 6637 ####[facility] [address] [place] [address] [id number] RM[facility] Glucose [Mass/Vol] 138 mg/dL High -99 [facility] Comment on above: Performed By: #### 4 5704 ####[facility] [address] [place] [address] [id number] [facility] Glucose [Mass/Vol] 106 mg/dL [place] [address] [place] [address] Comment on above: Performed By: #### 4 8937 ####[facility] [address] [place] [address] [id number] [facility] Glucose [Mass/Vol] 134 mg/dL High 65-[address] [place] [address] Comment on above: Performed By: #### 4 6932 ####[facility] [address] [place] [address] [id number] [facility] Glucose [Mass/Vol] 152 mg/dL [address] Comment on above: Performed By: #### 4 6932 ####[facility] [address] [place] [address] [id number] [facility] Glucose [Mass/Vol] 171 mg/dL [address] Comment on above: Performed By: #### 4 6932 ####[facility] [address] [place] [address] [id number] [facility] Glucose [Mass/Vol] 169 mg/dL [address] Comment on above: Performed By: #### 4 6932 ####[facility] [address] [place] [address] [id number] [facility] RENAL FUNCTION PANEL 02-10 Albumin [Mass/Vol] 2.3 g/dL Low 3.2-5.2 [facility] Comment on above: Order Comment: [facility] has implemented the eGFR calculation approach that does not have a coefficient for race that conforms to the NKF-ASN Task Force Recommendations. Performed By: #### 4 6449 ####[facility] [address] [place] [address] Glenn Gudino M.D. [id number] Anion gap [Moles/Vol] 17 mmol/L Normal 10-20 [facility] Comment on above: Order Comment: [facility] has implemented the eGFR calculation approach that does not have a coefficient for race that conforms to the NKF-ASN Task Force Recommendations. Performed By: #### 4 6449 ####[facility] [address] [place] [address] Glenn Gudino M.D. [id number] Calcium [Mass/Vol] 8.0 mg/dL Low 8.4-10.2 [facility] Comment on above: Order Comment: [facility] has implemented the eGFR calculation approach that does not have a coefficient for race that conforms to the NKF-ASN Task Force Recommendations. Performed By: #### 4 6449 ####[facility] [address] [place], [place] [address] Glenn Gudino M.D. [id number] Chloride [Moles/Vol] 103 mmol/L Normal 98-108 [facility] Comment on above: Order Comment: [facility] has implemented the eGFR calculation approach that does not have a coefficient for race that conforms to the NKF-ASN Task Force Recommendations. Performed By: #### 4 6449 ####[facility] [address] [place], [place] [address] Glenn Gudino M.D. [id number] Creatinine [Mass/Vol] 2.46 mg/dL High 0.60-1.10 [facility] Comment on above: Order Comment: [facility] has implemented the eGFR calculation approach that does not have a coefficient for race that conforms to the NKF-ASN Task Force Recommendations. Performed By: #### 4 6449 ####[facility] [address] [place] [address] Glenn Gudino M.D. [id number] EGFR 22 mL/min/1.73 m2 Low >=60 [facility] Comment on above: Order Comment: [facility] has implemented the eGFR calculation approach that does not have a coefficient for race that conforms to the NKF-ASN Task Force Recommendations. Result Comment: Joi mated GFR was calculated using the 2020 CKD-EPI creatinine equation. Performed By: #### 4 6449 ####[facility] [address] [place] [address] 80257 Glenn Gudino M.D. [id number] Glucose [Mass/Vol] 187 mg/dL High 65-99 [facility] Comment on above: Order Comment: [facility] has implemented the eGFR calculation approach that does not have a coefficient for race that conforms to the NKF-ASN Task Force Recommendations. Performed By: #### 4 6449 ####[facility] [address] [place] [address] 08342 Glenn Gudino M.D. [id number] HCO3 (Bld) [Moles/Vol] 22 mmol/L Normal 21-32 [facility] Comment on above: Order Comment: [facility] has implemented the eGFR calculation approach that does not have a coefficient for race that conforms to the NKF-ASN Task Force Recommendations. Performed By: #### 4 6449 ####[facility] [address] [place] [address] Glenn Gudino M.D. [id number] Phosphate [Mass/Vol] 5.2 mg/dL High 2.8-4.1 [facility] Comment on above: Order Comment: [facility] has implemented the eGFR calculation approach that does not have a coefficient for race that conforms to the NKF-ASN Task Force Recommendations. Performed By: #### 4 6449 ####[facility] [address] [place] [address] Glenn Gudino M.D. [id number] Potassium [Moles/Vol] 5.4 mmol/L High 3.5-5.1 [facility] Comment on above: Order Comment: [facility] has implemented the eGFR calculation approach that does not have a coefficient for race that conforms to the NKF-ASN Task Force Recommendations. Performed By: #### 4 6449 ####[facility] [address] [place] [address] Glenn Gudino M.D. [id number] Sodium [Moles/Vol] 137 mmol/L Normal 135-145 [facility] Comment on above: Order Comment: [facility] has implemented the eGFR calculation approach that does not have a coefficient for race that conforms to the NKF-ASN Task Force Recommendations. Performed By: #### 4 6449 ####[facility] [address] [place] [address] Glenn Gudino M.D. [id number] Urea nitrogen [Mass/Vol] 57 mg/dL High 8-25 [facility] Comment on above: Order Comment: [facility] has implemented the eGFR calculation approach that does not have a coefficient for race that conforms to the NKF-ASN Task Force Recommendations. Performed By: #### 4 6449 ####[facility] [address] [place] [address] 35379 Glenn Gudino M.D. [id number] Urea nitrogen/Creatinine [Mass ratio] 23.2 mg/mg High 10.0-20.0 [facility] Comment on above: Order Comment: [facility] has implemented the eGFR calculation approach that does not have a coefficient for race that conforms to the NKF-ASN Task Force Recommendations. Performed By: #### 4 6449 ####[facility] [address] [place] [address] 07369 Glenn Gudino M.D. [id number] XR CHEST PA/APon 02-11-2024 XR CHEST PA/AP Normal [facility] Comment on above: Order Comment: Injur y/Trauma or Illness?:Illness/OtherHow long have you had these symptoms (acute/chronic)?:AcuteReason for exam?:chest tube palcement, pneumothoraxHistory of cancer?:uSurgeries, chemotherapy, or radiation?:uType of Exam?:InitialAdditional signs and symptoms?:. CALCIUM, IONIZEDon 4 CALCIUM IONIZED 4.7 mg/dL Normal 4.5-5.3 [facility] Comment on above: Order Comment: Serum , non-CRRT source. Performed By: #### 4 5190 ####[facility] [address] [place] [address] 35522 Glenn Gudino M.D. [id number] CBCon 02-10-2024 AUTO NRBC 0.0 % Normal [facility] Comment on above: Performed By: #### 4 [id number] ####[facility] [address] [place], [place] [id number] Glenn Gudino M.D. [id number] AUTO NRBC ABS COUNT 0.00 K/mcL Normal 0.00-0.00 [facility] Comment on above: Performed By: #### 4 [id number] ####[facility] [address] [place] [address] Glenn Gudino M.D. [id number] Erythrocyte distribution width (RBC) [Ratio] 19.4 % High 11.6-14.8 [facility] Comment on above: Performed By: #### 4 [id number] ####[facility] [address] [place] [address] Glenn Gudino M.D. [id number] Hematocrit (Bld) [Volume fraction] 22.9 % Low 36.0-46.0 [facility] Comment on above: Performed By: #### 4 [id number] ####[facility] [address] [place] [address] Glenn Gudino M.D. [id number] Hemoglobin (Bld) [Mass/Vol] 7.4 g/dL Low 12.0-16.0 [facility] Comment on above: Performed By: #### 4 [id number] ####[facility] [address] [place], [place] [address] Glenn Gudino M.D. [id number] MCH (RBC) [Entitic mass] 29.6 pg Normal 26.0-34.0 [facility] Comment on above: Performed By: #### 4 [id number] ####[facility] [address] [place] [address] Glenn Gudino M.D. [id number] MCV (RBC) [Entitic vol] 91.6 fL Normal 80.0-100.0 [facility] Comment on above: Performed By: #### 4 [id number] ####[facility] [address] [place] [address]4041 Glenn Gudino M.D. [id number] MEAN CORPUSCULAR HEMOGLOBIN CONC 32.3 g/dL Normal 31.0-37.0 [facility] Comment on above: Performed By: #### 4 [id number] ####[facility] [address] [place], [place] [address] Glenn Gudino M.D. [id number] Platelet mean volume (Bld) [Entitic vol] 9.8 fL Normal 9.4-12.4 [facility] Comment on above: Performed By: #### 4 [id number] ####[facility] [address] [place], [place] [address] Glenn Gudino M.D. [id number] Platelets (Bld) [#/Vol] 323 10*3/uL Normal 150-400 [facility] Comment on above: Performed By: #### 4 [id number] ####[facility] [address] [place] [address] 85807Karma Gudino M.D. [id number] RBC (Bld) [#/Vol] 2.50 10*6/uL Low 4.00-5.20 [facility] Comment on above: Performed By: #### 4 [id number] ####[facility] [address] [place] [address] 04139 Glenn Gudino M.D. [id number] WBC (Bld) [#/Vol] 16.68 10*3/uL High 4.50-11.00 [facility] Comment on above: Performed By: #### 4 [id number] ####[facility] [address] [place] [address] 81247 Glenn Gudino M.D. [id number] MAGNESIUM LEVELon 02-10-2024 Magnesium [Mass/Vol] 2.2 mg/dL Normal 1.6-2.4 [facility] Comment on above: Performed By: #### 4 6109 ####[facility] [address] [place] [address] Glenn Gudino M.D. [id number] POC GLUCOSE - [facility] 024 Glucose [Mass/Vol] 197 mg/dL [address] Comment on above: Performed By: #### 4 6932 ####[facility] [address] [place] [address] [id number] [facility] Glucose [Mass/Vol] 181 mg/dL [address] Comment on above: Performed By: #### 4 6932 ####[facility] [address] [place] [address] [id number] [facility] Glucose [Mass/Vol] 161 mg/dL [address] Comment on above: Performed By: #### 4 6932 ####[facility] [address] [place] [address] [id number] [facility] Glucose [Mass/Vol] 173 mg/dL [address] Comment on above: Performed By: #### 4 6932 ####[facility] [address] [place] [address] [id number] [facility] Glucose [Mass/Vol] 198 mg/dL [address] Comment on above: Performed By: #### 4 7051 ####[facility] [address] [place] [address] [id number] [facility] Glucose [Mass/Vol] 178 mg/dL [address] Comment on above: Performed By: #### 4 7515 ####[facility] [address] [place] [address] [id number] [facility] RENAL FUNCTION PANELon 02-09 Albumin [Mass/Vol] 2.3 g/dL Low 3.2-5.2 [facility] Comment on above: Order Comment: [facility] has implemented the eGFR calculation approach that does not have a coefficient for race that conforms to the NKF-ASN Task Force Recommendations. Performed By: #### 4 6449 ####[facility] [address] [place] [address] Glenn Gudino M.D. [id number] Anion gap [Moles/Vol] 16 mmol/L Normal 10-20 [facility] Comment on above: Order Comment: [facility] has implemented the eGFR calculation approach that does not have a coefficient for race that conforms to the NKF-ASN Task Force Recommendations. Performed By: #### 4 6449 ####[facility] [address] [place] [address] 67993 Glenn Gudino M.D. [id number] Calcium [Mass/Vol] 7.6 mg/dL Low 8.4-10.2 [facility] Comment on above: Order Comment: [facility] has implemented the eGFR calculation approach that does not have a coefficient for race that conforms to the NKF-ASN Task Force Recommendations. Performed By: #### 4 6449 ####[facility] [address] [place] [address] 91049 Glenn Gudino M.D. [id number] Chloride [Moles/Vol] 101 mmol/L Normal 98-108 [facility] Comment on above: Order Comment: [facility] has implemented the eGFR calculation approach that does not have a coefficient for race that conforms to the NKF-ASN Task Force Recommendations. Performed By: #### 4 6449 ####[facility] [address] [place] [address] 80089 Glenn Gudino M.D. [id number] Creatinine [Mass/Vol] 2.03 mg/dL High 0.60-1.10 [facility] Comment on above: Order Comment: [facility] has implemented the eGFR calculation approach that does not have a coefficient for race that conforms to the NKF-ASN Task Force Recommendations. Performed By: #### 4 6449 ####[facility] [address] [place] [address] 76723 Glenn Gudino M.D. [id number] EGFR 27 mL/min/1.73 m2 Low >=60 [facility] Comment on above: Order Comment: [facility] has implemented the eGFR calculation approach that does not have a coefficient for race that conforms to the NKF-ASN Task Force Recommendations. Result Comment: Joi mated GFR was calculated using the 2020 CKD-EPI creatinine equation. Performed By: #### 4 6449 ####[facility] [address] [place] [address] 72329 Glenn Gudino M.D. [id number] Glucose [Mass/Vol] 315 mg/dL High 65-99 [facility] Comment on above: Order Comment: [facility] has implemented the eGFR calculation approach that does not have a coefficient for race that conforms to the NKF-ASN Task Force Recommendations. Performed By: #### 4 6449 ####[facility] [address] [place] [address] 51813 Glenn Gudino M.D. [id number] HCO3 (Bld) [Moles/Vol] 25 mmol/L Normal 21-32 [facility] Comment on above: Order Comment: [facility] has implemented the eGFR calculation approach that does not have a coefficient for race that conforms to the NKF-ASN Task Force Recommendations. Performed By: #### 4 6449 ####[facility] [address] [place] [address] 14972 Glenn Gudino M.D. [id number] Phosphate [Mass/Vol] 4.9 mg/dL High 2.8-4.1 [facility] Comment on above: Order Comment: [facility] has implemented the eGFR calculation approach that does not have a coefficient for race that conforms to the NKF-ASN Task Force Recommendations. Performed By: #### 4 6449 ####[facility] [address] [place] [address] 24529 Glenn Gudino M.D. [id number] Potassium [Moles/Vol] 5.6 mmol/L High 3.5-5.1 [facility] Comment on above: Order Comment: [facility] has implemented the eGFR calculation approach that does not have a coefficient for race that conforms to the NKF-ASN Task Force Recommendations. Performed By: #### 4 6449 ####[facility] [address] [place] [address] 73448 Glenn Gudino M.D. [id number] Sodium [Moles/Vol] 136 mmol/L Normal 135-145 [facility] Comment on above: Order Comment: [facility] has implemented the eGFR calculation approach that does not have a coefficient for race that conforms to the NKF-ASN Task Force Recommendations. Performed By: #### 4 6449 ####[facility] [address] [place] [address] 76524 Glenn Gudino M.D. [id number] Urea nitrogen [Mass/Vol] 40 mg/dL High 8-25 [facility] Comment on above: Order Comment: [facility] has implemented the eGFR calculation approach that does not have a coefficient for race that conforms to the NKF-ASN Task Force Recommendations. Performed By: #### 4 6449 ####[facility] [address] [place] [address] 17859 Glenn Gudino M.D. [id number] Urea nitrogen/Creatinine [Mass ratio] 19.7 mg/mg Normal 10.0-20.0 [facility] Comment on above: Order Comment: [facility] has implemented the eGFR calculation approach that does not have a coefficient for race that conforms to the NKF-ASN Task Force Recommendations. Performed By: #### 4 6449 ####[facility] [address] [place], [place] [address] Glenn Gudino M.D. [id number] XR CHEST PA/APon 02-10-2024 XR CHEST PA/AP Normal [facility] Comment on above: Order Comment: Injur y/Trauma or Illness?:Illness/OtherHow long have you had these symptoms (acute/chronic)?:AcuteReason for exam?:chest tube palcement, pneumothoraxHistory of cancer?:uSurgeries, chemotherapy, or radiation?:uType of Exam?:InitialAdditional signs and symptoms?:. ANTIBODY IDENTIFICATION-Con 02-09-2024 ANTIBODY IDENTIFICATION-C Normal [facility] Comment on above: Performed By: #### 4 6427_Anti-C ####[facility] [address] [place] [address] Nurys Oneill MD [id number] [facility] CALCIUM, IONIZEDon CALCIUM IONIZED 4.5 mg/dL Normal 4.5-5.3 [facility] Comment on above: Order Comment: Serum , non-CRRT source. Performed By: #### 4 5190 ####[facility] [address] [place] [address] Glenn Gudino M.D. [id number] CBCon 02-09-2024 AUTO NRBC 0.0 % Normal [facility] Comment on above: Performed By: #### 4 [id number] ####[facility] [address] [place], [place] [address] Glenn Gudino M.D. [id number] AUTO NRBC ABS COUNT 0.00 K/mcL Normal 0.00-0.00 [facility] Comment on above: Performed By: #### 4 [id number] ####[facility] [address] [place], [place] [address] Glenn Gudino M.D. [id number] Erythrocyte distribution width (RBC) [Ratio] 19.5 % High 11.6-14.8 [facility] Comment on above: Performed By: #### 4 [id number] ####[facility] [address] [place], [place] [address] Glenn Gudino M.D. [id number] Hematocrit (Bld) [Volume fraction] 23.4 % Low 36.0-46.0 [facility] Comment on above: Performed By: #### 4 [id number] ####[facility] [address] [place] [address] Glenn Gudino M.D. [id number] Hemoglobin (Bld) [Mass/Vol] 7.5 g/dL Low 12.0-16.0 [facility] Comment on above: Performed By: #### 4 5218 ####[facility] [address] [place], [place] [address] Glenn Gudino M.D. [id number] MCH (RBC) [Entitic mass] 29.2 pg Normal 26.0-34.0 [facility] Comment on above: Performed By: #### 4 [id number] ####[facility] [address] [place], [place] [address] Glenn Gudino M.D. [id number] MCV (RBC) [Entitic vol] 91.1 fL Normal 80.0-100.0 [facility] Comment on above: Performed By: #### 4 [id number] ####[facility] [address] [place], [place] [address] Glenn Gudino M.D. [id number] MEAN CORPUSCULAR HEMOGLOBIN CONC 32.1 g/dL Normal 31.0-37.0 [facility] Comment on above: Performed By: #### 4 5298 ####[facility] [address] [place], [place] [address] Glenn Gudino M.D. [id number] Platelet mean volume (Bld) [Entitic vol] 9.6 fL Normal 9.4-12.4 [facility] Comment on above: Performed By: #### 4 9018 ####[facility] [address] [place] [address] 21403 Glenn Gudino M.D. [id number] Platelets (Bld) [#/Vol] 281 10*3/uL Normal 150-400 [facility] Comment on above: Performed By: #### 4 [id number] ####[facility] [address] [place], [place] [address] Glenn Gudino M.D. [id number] RBC (Bld) [#/Vol] 2.57 10*6/uL Low 4.00-5.20 [facility] Comment on above: Performed By: #### 4 [id number] ####[facility] [address] [place], [place] [address] Glenn Gudino M.D. [id number] WBC (Bld) [#/Vol] 11.20 10*3/uL High 4.50-11.00 [facility] Comment on above: Performed By: #### 4 [id number] ####[facility] [address] [place], [place] [address] Glenn Gudino M.D. [id number] MAGNESIUM LEVELon 02-09-2024 Magnesium [Mass/Vol] 2.0 mg/dL Normal 1.6-2.4 [facility] Comment on above: Performed By: #### 4 6109 ####[facility] [address] [place], [place] [address] Glenn Gudino M.D. [id number] POC GLUCOSE [facility] 024 Glucose [Mass/Vol] 198 mg/dL High 65-99 [facility] Comment on above: Performed By: #### 4 7593 ####[facility] [address] [place] [address] [id number] [facility] Glucose [Mass/Vol] 168 mg/dL High 65-99 [facility] Comment on above: Performed By: #### 4 2173 ####[facility] [address] [place] [address] [id number] [facility] Glucose [Mass/Vol] 246 mg/dL High -[address] [place] [address] Comment on above: Performed By: #### 4 6932 ####[facility] [address] [place] [address] [id number] [facility] Glucose [Mass/Vol] 260 mg/dL High [address] [place] [address] Comment on above: Performed By: #### 4 6932 ####[facility] [address] [place] [address] [id number] [facility] Glucose [Mass/Vol] 255 mg/dL High [address] [place] [address] Comment on above: Performed By: #### 4 6932 ####[facility] [address] [place] [address] [id number] [facility] Glucose [Mass/Vol] 217 mg/dL High [address] [place] [address] Comment on above: Performed By: #### 4 6932 ####[facility] [address] [place] [address] [id number] [facility] RENAL FUNCTION PANEL 02-08 Albumin [Mass/Vol] 2.1 g/dL Low 3.2-5.2 [facility] Comment on above: Order Comment: [facility] has implemented the eGFR calculation approach that does not have a coefficient for race that conforms to the NKF-ASN Task Force Recommendations. Performed By: #### 4 6449 ####[facility] [address] [place] [address] Glenn Gudino M.D. [id number] Anion gap [Moles/Vol] 16 mmol/L Normal 10-20 [facility] Comment on above: Order Comment: [facility] has implemented the eGFR calculation approach that does not have a coefficient for race that conforms to the NKF-ASN Task Force Recommendations. Performed By: #### 4 6449 ####[facility] [address] [place] [address] Glenn Gudino M.D. [id number] Calcium [Mass/Vol] 7.6 mg/dL Low 8.4-10.2 [facility] Comment on above: Order Comment: [facility] has implemented the eGFR calculation approach that does not have a coefficient for race that conforms to the NKF-ASN Task Force Recommendations. Performed By: #### 4 6449 ####[facility] [address] [place] [address] 46769 Glenn Gudino M.D. [id number] Chloride [Moles/Vol] 103 mmol/L Normal 98-108 [facility] Comment on above: Order Comment: [facility] has implemented the eGFR calculation approach that does not have a coefficient for race that conforms to the NKF-ASN Task Force Recommendations. Performed By: #### 4 [id number] ####[facility] [address] [place], [place] [address] Glenn Gudino M.D. [id number] Creatinine [Mass/Vol] 2.58 mg/dL High 0.60-1.10 [facility] Comment on above: Order Comment: [facility] has implemented the eGFR calculation approach that does not have a coefficient for race that conforms to the NKF-ASN Task Force Recommendations. Performed By: #### 4 6449 ####[facility] [address] [place] [address] Glenn Gudino M.D. [id number] EGFR 21 mL/min/1.73 m2 Low >=60 [facility] Comment on above: Order Comment: [facility] has implemented the eGFR calculation approach that does not have a coefficient for race that conforms to the NKF-ASN Task Force Recommendations. Result Comment: Joi mated GFR was calculated using the 2020 CKD-EPI creatinine equation. Performed By: #### 4 6449 ####[facility] [address] [place] [address] 64238 Glenn Gudino M.D. [id number] Glucose [Mass/Vol] 233 mg/dL High 65-99 [facility] Comment on above: Order Comment: [facility] has implemented the eGFR calculation approach that does not have a coefficient for race that conforms to the NKF-ASN Task Force Recommendations. Performed By: #### 4 6449 ####[facility] [address] [place], [place] [address] Glenn Gudino M.D. [id number] HCO3 (Bld) [Moles/Vol] 22 mmol/L Normal 21-32 [facility] Comment on above: Order Comment: [facility] has implemented the eGFR calculation approach that does not have a coefficient for race that conforms to the NKF-ASN Task Force Recommendations. Performed By: #### 4 6449 ####[facility] [address] [place], [place] [address] Glenn Gudino M.D. [id number] Phosphate [Mass/Vol] 4.4 mg/dL High 2.8-4.1 [facility] Comment on above: Order Comment: [facility] has implemented the eGFR calculation approach that does not have a coefficient for race that conforms to the NKF-ASN Task Force Recommendations. Performed By: #### 4 6449 ####[facility] [address] [place], [place] [address] Glenn Gudino M.D. [id number] Potassium [Moles/Vol] 4.8 mmol/L Normal 3.5-5.1 [facility] Comment on above: Order Comment: [facility] has implemented the eGFR calculation approach that does not have a coefficient for race that conforms to the NKF-ASN Task Force Recommendations. Performed By: #### 4 6449 ####[facility] [address] [place], [place] [address] Glenn Gudino M.D. [id number] Sodium [Moles/Vol] 136 mmol/L Normal 135-145 [facility] Comment on above: Order Comment: [facility] has implemented the eGFR calculation approach that does not have a coefficient for race that conforms to the NKF-ASN Task Force Recommendations. Performed By: #### 4 6449 ####[facility] [address] [place] [address] Glenn Gudino M.D. [id number] Urea nitrogen [Mass/Vol] 52 mg/dL High 8-25 [facility] Comment on above: Order Comment: [facility] has implemented the eGFR calculation approach that does not have a coefficient for race that conforms to the NKF-ASN Task Force Recommendations. Performed By: #### 4 6449 ####[facility] [address] [place] [address] 58413 Glenn Gudino M.D. [id number] Urea nitrogen/Creatinine [Mass ratio] 20.2 mg/mg High 10.0-20.0 [facility] Comment on above: Order Comment: [facility] has implemented the eGFR calculation approach that does not have a coefficient for race that conforms to the NKF-ASN Task Force Recommendations. Performed By: #### 4 6449 ####[facility] [address] [place] [address] 624[address] Glenn Gudino M.D. [id number] TYPE AND SCREENon 02-09-2024 TYPE AND SCREEN ABORH: O Positive AB SCREEN: Positive EXPIRATION DATE: 02/12/2024 23:59 EST [facility] Comment on above: Performed By: #### 4 6619 ####[facility] [address] [place] [address] Nurys nOeill MD [id number] HTS XR CHEST PA/APon 02-09-2024 XR CHEST PA/AP [facility] Comment on above: Order Comment: Injur y/Trauma or Illness?:Illness/OtherHow long have you had these symptoms (acute/chronic)?:UnknownReason for exam?:chest tube palcement, pneumothoraxHistory of cancer?:uSurgeries, chemotherapy, or radiation?:uType of Exam?:InitialAdditional signs and symptoms?:. CALCIUM, IONIZEDon CALCIUM IONIZED 4.5 mg/dL Normal 4.5-5.3 [facility] Comment on above: Order Comment: Serum , non-CRRT source. Performed By: #### 4 5190 ####[facility] [address] [place], [place] [address] Glenn Gudino M.D. [id number] CBCon 02-08-2024 AUTO NRBC 0.0 % Normal [facility] Comment on above: Performed By: #### 4 [id number] ####[facility] [address] [place] [address] Glenn Gudino M.D. [id number] AUTO NRBC ABS COUNT 0.00 K/mcL Normal 0.00-0.00 [facility] Comment on above: Performed By: #### 4 [id number] ####[facility] [address] [place] [address] Glenn Gudino M.D. [id number] Erythrocyte distribution width (RBC) [Ratio] 19.3 % High 11.6-14.8 [facility] Comment on above: Performed By: #### 4 [id number] ####[facility] [address] [place], [place] [address] Glenn Gudino M.D. [id number] Hematocrit (Bld) [Volume fraction] 22.2 % Low 36.0-46.0 [facility] Comment on above: Performed By: #### 4 [id number] ####[facility] [address] [place], [place] [address] Glenn Gudino M.D. [id number] Hemoglobin (Bld) [Mass/Vol] 7.0 g/dL Low 12.0-16.0 [facility] Comment on above: Performed By: #### 4 [id number] ####[facility] [address] [place], [place] [address] Glenn Gudino M.D. [id number] MCH (RBC) [Entitic mass] 29.2 pg Normal 26.0-34.0 [facility] Comment on above: Performed By: #### 4 [id number] ####[facility] [address] [place], [place] [address] Glenn Gudino M.D. [id number] MCV (RBC) [Entitic vol] 92.5 fL Normal 80.0-100.0 [facility] Comment on above: Performed By: #### 4 [id number] ####[facility] [address] [place] [address] Glenn Gudino M.D. [id number] MEAN CORPUSCULAR HEMOGLOBIN CONC 31.5 g/dL Normal 31.0-37.0 [facility] Comment on above: Performed By: #### 4 [id number] ####[facility] [address] [place] [address] Glenn Gudino M.D. [id number] Platelet mean volume (Bld) [Entitic vol] 9.7 fL Normal 9.4-12.4 [facility] Comment on above: Performed By: #### 4 [id number] ####[facility] [address] [place], [place] [address] Glenn Gudino M.D. [id number] Platelets (Bld) [#/Vol] 239 10*3/uL Normal 150-400 [facility] Comment on above: Performed By: #### 4 [id number] ####[facility] [address] [place], [place] [address] Glenn Gudino M.D. [id number] RBC (Bld) [#/Vol] 2.40 10*6/uL Low 4.00-5.20 [facility] Comment on above: Performed By: #### 4 [id number] ####[facility] [address] [place] [address] Glenn Gudino M.D. [id number] WBC (Bld) [#/Vol] 11.15 10*3/uL High 4.50-11.00 [facility] Comment on above: Performed By: #### 4 [id number] ####[facility] [address] [place] [address] Glenn Gudino M.D. [id number] CT ANGIOGRAM ABDOMEN PELVISo n 02-08-2024 CT ANGIOGRAM ABDOMEN PELVIS Normal [facility] Comment on above: Order Comment: Injur y/Trauma or Illness?:Illness/OtherHow long have you had these symptoms (acute/chronic)?:AcuteReason for exam?:Retroperitoneal hematoma, follow up, with arterial and venous phase - discussed with Dr. Li...Type of Exam?:Subsequent/Follow-upAdditional signs and symptoms?:Retroperitoneal hematoma, follow up, with arterial and venous phase - discussed with Dr. Li... MAGNESIUM LEVELon 02-08-2024 Magnesium [Mass/Vol] 1.6 mg/dL Normal 1.6-2.4 [facility] Comment on above: Performed By: #### 4 6109 ####[facility] [address] [place] [address] Glenn Gudino M.D. [id number] POC GLUCOSE - [facility] 024 Glucose [Mass/Vol] 208 mg/dL High 65-99 [facility] Comment on above: Performed By: #### 4 6954 ####[facility] [address] [place] [address] [id number] [facility] Glucose [Mass/Vol] 157 mg/dL High 65-99 [facility] Comment on above: Performed By: #### 4 6987 ####[facility] [address] [place] [address] [id number] [facility] Glucose [Mass/Vol] 148 mg/dL High 65-99 [facility] Comment on above: Performed By: #### 4 6952 ####[facility] [address] [place] [address] [id number] [facility] Glucose [Mass/Vol] 170 mg/dL High 65-99 [facility] Comment on above: Performed By: #### 4 6932 ####[facility] [address] [place] [address] [id number] [facility] Glucose [Mass/Vol] 178 mg/dL High 65-99 [facility] Comment on above: Performed By: #### 4 6932 ####[facility] [address] [place] [address] [id number] [facility] PT/INRon 02-08-2024 INR Coag (PPP) [Relative time] 1.2 {INR} High 0.8-1.1 [facility] Comment on above: Order Comment: Jennifer retana the induction phase of oral anticoagulation, the INR may not reflect the anticoagulation status of the patient. Therapeutic ranges for INR's are:Most clinical situations: INR 2.0-3.0Mechanical Prosthetic Valve: INR 2.5-3.5Critical: INR >5.0 Performed By: #### 4 6391 ####[facility] [address] [place] [address]70 Glenn Gudino M.D. [id number] PT Coag (PPP) [Time] 14.7 s High 11.8-14.3 [facility] Comment on above: Order Comment: Jennifer retana the induction phase of oral anticoagulation, the INR may not reflect the anticoagulation status of the patient. Therapeutic ranges for INR's are:Most clinical situations: INR 2.0-3.0Mechanical Prosthetic Valve: INR 2.5-3.5Critical: INR >5.0 Performed By: #### 4 6391 ####[facility] [address] [place], [place] [address] Glenn Gudino M.D. [id number] RENAL FUNCTION PANELon 02-07 Albumin [Mass/Vol] 2.3 g/dL Low 3.2-5.2 [facility] Comment on above: Order Comment: [facility] has implemented the eGFR calculation approach that does not have a coefficient for race that conforms to the NKF-ASN Task Force Recommendations. Performed By: #### 4 6449 ####[facility] [address] [place] [address] Glenn Gudino M.D. [id number] Anion gap [Moles/Vol] 13 mmol/L Normal 10-20 [facility] Comment on above: Order Comment: [facility] has implemented the eGFR calculation approach that does not have a coefficient for race that conforms to the NKF-ASN Task Force Recommendations. Performed By: #### 4 6449 ####[facility] [address] [place] [address]180 Glenn Gudino M.D. [id number] Calcium [Mass/Vol] 7.3 mg/dL Low 8.4-10.2 [facility] Comment on above: Order Comment: [facility] has implemented the eGFR calculation approach that does not have a coefficient for race that conforms to the NKF-ASN Task Force Recommendations. Performed By: #### 4 6449 ####[facility] [address] [place] [address]2406 Glenn Gudino M.D. [id number] Chloride [Moles/Vol] 101 mmol/L Normal 98-108 [facility] Comment on above: Order Comment: [facility] has implemented the eGFR calculation approach that does not have a coefficient for race that conforms to the NKF-ASN Task Force Recommendations. Performed By: #### 4 6449 ####[facility] [address] [place] [address]69 Glenn Gudino M.D. [id number] Creatinine [Mass/Vol] 2.03 mg/dL High 0.60-1.10 [facility] Comment on above: Order Comment: [facility] has implemented the eGFR calculation approach that does not have a coefficient for race that conforms to the NKF-ASN Task Force Recommendations. Performed By: #### 4 6449 ####[facility] [address] [place] [address]125 Glenn Gudino M.D. [id number] EGFR 27 mL/min/1.73 m2 Low >=60 [facility] Comment on above: Order Comment: [facility] has implemented the eGFR calculation approach that does not have a coefficient for race that conforms to the NKF-ASN Task Force Recommendations. Result Comment: Joi mated GFR was calculated using the 2020 CKD-EPI creatinine equation. Performed By: #### 4 6449 ####[facility] [address] [place] [address]13 Glenn Gudino M.D. [id number] Glucose [Mass/Vol] 195 mg/dL High 65-99 [facility] Comment on above: Order Comment: [facility] has implemented the eGFR calculation approach that does not have a coefficient for race that conforms to the NKF-ASN Task Force Recommendations. Performed By: #### 4 6449 ####[facility] [address] [place] [address] 24298 Glenn Gudino M.D. [id number] HCO3 (Bld) [Moles/Vol] 26 mmol/L Normal 21-32 [facility] Comment on above: Order Comment: [facility] has implemented the eGFR calculation approach that does not have a coefficient for race that conforms to the NKF-ASN Task Force Recommendations. Performed By: #### 4 6449 ####[facility] [address] [place] [address]70 Glenn Gudino M.D. [id number] Phosphate [Mass/Vol] 2.3 mg/dL Low 2.8-4.1 [facility] Comment on above: Order Comment: [facility] has implemented the eGFR calculation approach that does not have a coefficient for race that conforms to the NKF-ASN Task Force Recommendations. Performed By: #### 4 6449 ####[facility] [address] [place] [address] 55884 Glenn Gudino M.D. [id number] Potassium [Moles/Vol] 3.8 mmol/L Normal 3.5-5.1 [facility] Comment on above: Order Comment: [facility] has implemented the eGFR calculation approach that does not have a coefficient for race that conforms to the NKF-ASN Task Force Recommendations. Performed By: #### 4 6449 ####[facility] [address] [place] [address] Glenn Gudino M.D. [id number] Sodium [Moles/Vol] 136 mmol/L Normal 135-145 [facility] Comment on above: Order Comment: [facility] has implemented the eGFR calculation approach that does not have a coefficient for race that conforms to the NKF-ASN Task Force Recommendations. Performed By: #### 4 6449 ####[facility] [address] [place], [place] [address] Glenn Gudino M.D. [id number] Urea nitrogen [Mass/Vol] 33 mg/dL High 8-25 [facility] Comment on above: Order Comment: [facility] has implemented the eGFR calculation approach that does not have a coefficient for race that conforms to the NKF-ASN Task Force Recommendations. Performed By: #### 4 6449 ####[facility] [address] [place], [place] [address] Glenn Gudino M.D. [id number] Urea nitrogen/Creatinine [Mass ratio] 16.3 mg/mg Normal 10.0-20.0 [facility] Comment on above: Order Comment: [facility] has implemented the eGFR calculation approach that does not have a coefficient for race that conforms to the NKF-ASN Task Force Recommendations. Performed By: #### 4 6449 ####[facility] [address] [place] [address] Glenn Gudino M.D. [id number] XR CHEST PA/APon 02-08-2024 XR CHEST PA/AP Normal [facility] Comment on above: Order Comment: Injur y/Trauma or Illness?:Illness/OtherHow long have you had these symptoms (acute/chronic)?:AcuteReason for exam?:chest tube palcement, pneumothoraxHistory of cancer?:uSurgeries, chemotherapy, or radiation?:uType of Exam?:OngoingAdditional signs and symptoms?:chest tube palcement, pneumothorax CALCIUM, IONIZEDon CALCIUM IONIZED 4.6 mg/dL Normal 4.5-5.3 [facility] Comment on above: Order Comment: Serum , non-CRRT source. Performed By: #### 4 5190 ####[facility] [address] [place] [address] Glenn Gudino M.D. [id number] CBCon 02-07-2024 AUTO NRBC 0.0 % Normal [facility] Comment on above: Performed By: #### 4 [id number] ####[facility] [address] [place] [address] Glenn Gudino M.D. [id number] AUTO NRBC ABS COUNT 0.00 K/mcL Normal 0.00-0.00 [facility] Comment on above: Performed By: #### 4 [id number] ####[facility] [address] [place], [place] [address] Glenn Gudino M.D. [id number] Erythrocyte distribution width (RBC) [Ratio] 18.7 % High 11.6-14.8 [facility] Comment on above: Performed By: #### 4 [id number] ####[facility] [address] [place], [place] [address] Glenn Gudino M.D. [id number] Hematocrit (Bld) [Volume fraction] 24.3 % Low 36.0-46.0 [facility] Comment on above: Performed By: #### 4 [id number] ####[facility] [address] [place] [address] Glenn Gudino M.D. [id number] Hemoglobin (Bld) [Mass/Vol] 7.7 g/dL Low 12.0-16.0 [facility] Comment on above: Performed By: #### 4 [id number] ####[facility] [address] [place], [place] [address] Glenn Gudino M.D. [id number] MCH (RBC) [Entitic mass] 29.1 pg Normal 26.0-34.0 [facility] Comment on above: Performed By: #### 4 [id number] ####[facility] [address] [place] [address] Glenn Gudino M.D. [id number] MCV (RBC) [Entitic vol] 91.7 fL Normal 80.0-100.0 [facility] Comment on above: Performed By: #### 4 [id number] ####[facility] [address] [place] [address] Glenn Gudino M.D. [id number] MEAN CORPUSCULAR HEMOGLOBIN CONC 31.7 g/dL Normal 31.0-37.0 [facility] Comment on above: Performed By: #### 4 [id number] ####[facility] [address] [place] [address] Glenn Gudino M.D. [id number] Platelet mean volume (Bld) [Entitic vol] 9.6 fL Normal 9.4-12.4 [facility] Comment on above: Performed By: #### 4 [id number] ####[facility] [address] [place] [address] Glenn Gudino M.D. [id number] Platelets (Bld) [#/Vol] 229 10*3/uL Normal 150-400 [facility] Comment on above: Performed By: #### 4 5228 ####[facility] [address] [place] [address] Glenn Gudino M.D. [id number] RBC (Bld) [#/Vol] 2.65 10*6/uL Low 4.00-5.20 [facility] Comment on above: Performed By: #### 4 [id number] ####[facility] [address] [place] [address] 64278 Glenn Gudino M.D. [id number] WBC (Bld) [#/Vol] 13.25 10*3/uL High 4.50-11.00 [facility] Comment on above: Performed By: #### 4 [id number] ####[facility] [address] [place] [address] 23881 Glenn Gudino M.D. [id number] CONSULTon 02-07-2024 CONSULT Normal [facility] CV IR EMBOLIZATION (NON-NEUR O) (SPECIFY LOCATION)on 02-07-2024 CV IR EMBOLIZATION (NON-NEURO) (SPECIFY LOCATION) Normal [facility] CV IR LYMPHANGIOGRAMon 02-06 CV IR LYMPHANGIOGRAM Normal [facility] MAGNESIUM LEVELon 02-07-2024 Magnesium [Mass/Vol] 1.8 mg/dL Normal 1.6-2.4 [facility] Comment on above: Performed By: #### 4 6109 ####[facility] [address] [place] [address] 05593 Glenn Gudino M.D. [id number] POC GLUCOSE - [facility] 024 Glucose [Mass/Vol] 210 mg/dL High 65-99 [facility] Comment on above: Performed By: #### 4 6949 ####[facility] [address] [place] [address] [id number] [facility] Glucose [Mass/Vol] 135 mg/dL High [address] Comment on above: Performed By: #### 4 6983 ####[facility] [address] [place] [address] [id number] [facility] Glucose [Mass/Vol] 186 mg/dL High 65-99 [facility] Comment on above: Performed By: #### 4 6932 ####[facility] [address] [place] [address] [id number] [facility] Glucose [Mass/Vol] 166 mg/dL High 65- [facility] Comment on above: Performed By: #### 4 6932 ####[facility] [address] [place] [address] [id number] [facility] Glucose [Mass/Vol] 163 mg/dL High 65- [facility] Comment on above: Performed By: #### 4 6932 ####[facility] [address] [place] [address] [id number] [facility]-06 Albumin [Mass/Vol] 2.6 g/dL Low 3.2-5.2 [facility] Comment on above: Order Comment: [facility] has implemented the eGFR calculation approach that does not have a coefficient for race that conforms to the NKF-ASN Task Force Recommendations. Performed By: #### 4 6449 ####[facility] [address] [place] [address] Glenn Gudino M.D. [id number] Anion gap [Moles/Vol] 15 mmol/L Normal 10-20 [facility] Comment on above: Order Comment: [facility] has implemented the eGFR calculation approach that does not have a coefficient for race that conforms to the NKF-ASN Task Force Recommendations. Performed By: #### 4 6449 ####[facility] [address] [place] [address] 47270 Glenn Gudino M.D. [id number] Calcium [Mass/Vol] 7.7 mg/dL Low 8.4-10.2 [facility] Comment on above: Order Comment: [facility] has implemented the eGFR calculation approach that does not have a coefficient for race that conforms to the NKF-ASN Task Force Recommendations. Performed By: #### 4 6449 ####[facility] [address] [place] [address] 72478 Glenn Gudino M.D. [id number] Chloride [Moles/Vol] 99 mmol/L Normal 98-108 [facility] Comment on above: Order Comment: [facility] has implemented the eGFR calculation approach that does not have a coefficient for race that conforms to the NKF-ASN Task Force Recommendations. Performed By: #### 4 6449 ####[facility] [address] [place], [place] [address] Glenn Gudino M.D. [id number] Creatinine [Mass/Vol] 2.72 mg/dL High 0.60-1.10 [facility] Comment on above: Order Comment: [facility] has implemented the eGFR calculation approach that does not have a coefficient for race that conforms to the NKF-ASN Task Force Recommendations. Performed By: #### 4 6449 ####[facility] [address] [place] [address] Glenn Gudino M.D. [id number] EGFR 19 mL/min/1.73 m2 Low >=60 [facility] Comment on above: Order Comment: [facility] has implemented the eGFR calculation approach that does not have a coefficient for race that conforms to the NKF-ASN Task Force Recommendations. Result Comment: Joi mated GFR was calculated using the 2020 CKD-EPI creatinine equation. Performed By: #### 4 6449 ####[facility] [address] [place] [address] Glenn Gudino M.D. [id number] Glucose [Mass/Vol] 161 mg/dL High 65-99 [facility] Comment on above: Order Comment: [facility] has implemented the eGFR calculation approach that does not have a coefficient for race that conforms to the NKF-ASN Task Force Recommendations. Performed By: #### 4 6449 ####[facility] [address] [place] [address] Glenn Gudino M.D. [id number] HCO3 (Bld) [Moles/Vol] 26 mmol/L Normal 21-32 [facility] Comment on above: Order Comment: [facility] has implemented the eGFR calculation approach that does not have a coefficient for race that conforms to the NKF-ASN Task Force Recommendations. Performed By: #### 4 6449 ####[facility] [address] [place], [place] [address] Glenn Gudino M.D. [id number] Phosphate [Mass/Vol] 2.1 mg/dL Low 2.8-4.1 [facility] Comment on above: Order Comment: [facility] has implemented the eGFR calculation approach that does not have a coefficient for race that conforms to the NKF-ASN Task Force Recommendations. Performed By: #### 4 6449 ####[facility] [address] [place], [place] [address] Glenn Gudino M.D. [id number] Potassium [Moles/Vol] 3.9 mmol/L Normal 3.5-5.1 [facility] Comment on above: Order Comment: [facility] has implemented the eGFR calculation approach that does not have a coefficient for race that conforms to the NKF-ASN Task Force Recommendations. Result Comment: Slig htly Hemolyzed Performed By: #### 4 6449 ####[facility] [address] [place], [place] [address] Glenn Gudino M.D. [id number] Sodium [Moles/Vol] 136 mmol/L Normal 135-145 [facility] Comment on above: Order Comment: [facility] has implemented the eGFR calculation approach that does not have a coefficient for race that conforms to the NKF-ASN Task Force Recommendations. Performed By: #### 4 6449 ####[facility] [address] [place], [place] [address] Glenn Gudino M.D. [id number] Urea nitrogen [Mass/Vol] 42 mg/dL High 8-25 [facility] Comment on above: Order Comment: [facility] has implemented the eGFR calculation approach that does not have a coefficient for race that conforms to the NKF-ASN Task Force Recommendations. Performed By: #### 4 6449 ####[facility] [address] [place] [address] Glenn Gudino M.D. [id number] Urea nitrogen/Creatinine [Mass ratio] 15.4 mg/mg Normal 10.0-20.0 [facility] Comment on above: Order Comment: [facility] has implemented the eGFR calculation approach that does not have a coefficient for race that conforms to the NKF-ASN Task Force Recommendations. Performed By: #### 4 6449 ####[facility] [address] [place] [address] Glenn Gudino M.D. [id number] XR CHEST PA/APon 02-07-2024 XR CHEST PA/AP Normal [facility] Comment on above: Order Comment: Injur y/Trauma or Illness?:Illness/OtherHow long have you had these symptoms (acute/chronic)?:AcuteReason for exam?:chest tube palcement, pneumothoraxHistory of cancer?:uSurgeries, chemotherapy, or radiation?:uType of Exam?:InitialAdditional signs and symptoms?:. ANTIBODY IDENTIFICATION-Con 02-06-2024 ANTIBODY IDENTIFICATION-C Normal [facility] Comment on above: Performed By: #### 4 [id number]_Anti-C ####[facility] [address] [place] [address] Nurys Oneill MD [id number] [facility] CALCIUM, IONIZEDon CALCIUM IONIZED 4.6 mg/dL Normal 4.5-5.3 [facility] Comment on above: Order Comment: Serum , non-CRRT source. Performed By: #### 4 5190 ####[facility] [address] [place] [address] Glenn Gudino M.D. [id number] CBCon 02-06-2024 AUTO NRBC 0.0 % Normal [facility] Comment on above: Performed By: #### 4 [id number] ####[facility] [address] [place] [address] Glenn Gudino M.D. [id number] AUTO NRBC ABS COUNT 0.00 K/mcL Normal 0.00-0.00 [facility] Comment on above: Performed By: #### 4 [id number] ####[facility] [address] [place] [address] Glenn Gudino M.D. [id number] Erythrocyte distribution width (RBC) [Ratio] 18.5 % High 11.6-14.8 [facility] Comment on above: Performed By: #### 4 [id number] ####[facility] [address] [place] [address] Glenn Gudino M.D. [id number] Hematocrit (Bld) [Volume fraction] 24.0 % Low 36.0-46.0 [facility] Comment on above: Performed By: #### 4 [id number] ####[facility] [address] [place] [address] Glenn Gudino M.D. [id number] Hemoglobin (Bld) [Mass/Vol] 7.5 g/dL Low 12.0-16.0 [facility] Comment on above: Performed By: #### 4 [id number] ####[facility] [address] [place] [address] Glenn Gudino M.D. [id number] MCH (RBC) [Entitic mass] 28.4 pg Normal 26.0-34.0 [facility] Comment on above: Performed By: #### 4 [id number] ####[facility] [address] [place] [address] Glenn Gudino M.D. [id number] MCV (RBC) [Entitic vol] 90.9 fL Normal 80.0-100.0 [facility] Comment on above: Performed By: #### 4 [id number] ####[facility] [address] [place], [place] [address] Glenn Gudino M.D. [id number] MEAN CORPUSCULAR HEMOGLOBIN CONC 31.3 g/dL Normal 31.0-37.0 [facility] Comment on above: Performed By: #### 4 [id number] ####[facility] [address] [place], [place] [address] Glenn Gudino M.D. [id number] Platelet mean volume (Bld) [Entitic vol] 10.2 fL Normal 9.4-12.4 [facility] Comment on above: Performed By: #### 4 [id number] ####[facility] [address] [place], [place] [address] Glenn Gudino M.D. [id number] Platelets (Bld) [#/Vol] 197 10*3/uL Normal 150-400 [facility] Comment on above: Performed By: #### 4 [id number] ####[facility] [address] [place], [place] [address] Glenn Gudino M.D. [id number] RBC (Bld) [#/Vol] 2.64 10*6/uL Low 4.00-5.20 [facility] Comment on above: Performed By: #### 4 [id number] ####[facility] [address] [place], [place] [address] Glenn Gudino M.D. [id number] WBC (Bld) [#/Vol] 11.41 10*3/uL High 4.50-11.00 [facility] Comment on above: Performed By: #### 4 [id number] ####[facility] [address] [place], [place] [address] Glenn Gudino M.D. [id number] MAGNESIUM LEVELon 02-06-2024 Magnesium [Mass/Vol] 1.9 mg/dL Normal 1.6-2.4 [facility] Comment on above: Performed By: #### 4 6109 ####[facility] [address] [place] [address] Glenn Gudino M.D. [id number] POC GLUCOSE - [facility] 024 Glucose [Mass/Vol] 156 mg/dL High [address] [place] [address] Comment on above: Performed By: #### 4 6932 ####[facility] [address] [place] [address] [id number] [facility] Glucose [Mass/Vol] 135 mg/dL [address] Comment on above: Performed By: #### 4 6932 ####[facility] [address] [place] [address] [id number] [facility] Glucose [Mass/Vol] 150 mg/dL [address] Comment on above: Performed By: #### 4 1627 ####[facility] [address] [place] [address] [id number] [facility] Glucose [Mass/Vol] 196 mg/dL [address] Comment on above: Performed By: #### 4 6979 ####[facility] [address] [place] [address] [id number] [facility] Glucose [Mass/Vol] 176 mg/dL [address] Comment on above: Performed By: #### 4 5437 ####[facility] [address] [place] [address] [id number] [facility] Glucose [Mass/Vol] 161 mg/dL [address] Comment on above: Performed By: #### 4 3452 ####[facility] [address] [place] [address] [id number] [facility] RENAL FUNCTION PANELon 02-05 Albumin [Mass/Vol] 2.5 g/dL Low 3.2-5.2 [facility] Comment on above: Order Comment: [facility] has implemented the eGFR calculation approach that does not have a coefficient for race that conforms to the NKF-ASN Task Force Recommendations. Performed By: #### 4 6449 ####[facility] [address] [place], [place] [address] Glenn Gudino M.D. [id number] Anion gap [Moles/Vol] 12 mmol/L Normal 10-20 [facility] Comment on above: Order Comment: [facility] has implemented the eGFR calculation approach that does not have a coefficient for race that conforms to the NKF-ASN Task Force Recommendations. Performed By: #### 4 6449 ####[facility] [address] [place] [address] 86034 Glenn Gudino M.D. [id number] Calcium [Mass/Vol] 7.8 mg/dL Low 8.4-10.2 [facility] Comment on above: Order Comment: [facility] has implemented the eGFR calculation approach that does not have a coefficient for race that conforms to the NKF-ASN Task Force Recommendations. Performed By: #### 4 6449 ####[facility] [address] [place] [address] 91886 Glenn Gudino M.D. [id number] Chloride [Moles/Vol] 97 mmol/L Low 98-108 [facility] Comment on above: Order Comment: [facility] has implemented the eGFR calculation approach that does not have a coefficient for race that conforms to the NKF-ASN Task Force Recommendations. Performed By: #### 4 6449 ####[facility] [address] [place] [address] 77666 Glenn Gudino M.D. [id number] Creatinine [Mass/Vol] 1.97 mg/dL High 0.60-1.10 [facility] Comment on above: Order Comment: [facility] has implemented the eGFR calculation approach that does not have a coefficient for race that conforms to the NKF-ASN Task Force Recommendations. Performed By: #### 4 6449 ####[facility] [address] [place] [address] 77490 Glenn Gudino M.D. [id number] EGFR 28 mL/min/1.73 m2 Low >=60 [facility] Comment on above: Order Comment: [facility] has implemented the eGFR calculation approach that does not have a coefficient for race that conforms to the NKF-ASN Task Force Recommendations. Result Comment: Joi mated GFR was calculated using the 2020 CKD-EPI creatinine equation. Performed By: #### 4 6449 ####[facility] [address] [place], [place] [address] Glenn Gudino M.D. [id number] Glucose [Mass/Vol] 143 mg/dL High 65-99 [facility] Comment on above: Order Comment: [facility] has implemented the eGFR calculation approach that does not have a coefficient for race that conforms to the NKF-ASN Task Force Recommendations. Performed By: #### 4 6449 ####[facility] [address] [place] [address] 26294 Glenn Gudino M.D. [id number] HCO3 (Bld) [Moles/Vol] 28 mmol/L Normal 21-32 [facility] Comment on above: Order Comment: [facility] has implemented the eGFR calculation approach that does not have a coefficient for race that conforms to the NKF-ASN Task Force Recommendations. Performed By: #### 4 6449 ####[facility] [address] [place] [address] 56121 Glenn Gudino M.D. [id number] Phosphate [Mass/Vol] 1.7 mg/dL Low 2.8-4.1 [facility] Comment on above: Order Comment: [facility] has implemented the eGFR calculation approach that does not have a coefficient for race that conforms to the NKF-ASN Task Force Recommendations. Performed By: #### 4 6449 ####[facility] [address] [place] [address] 54238 Glenn Gudino M.D. [id number] Potassium [Moles/Vol] 3.5 mmol/L Normal 3.5-5.1 [facility] Comment on above: Order Comment: [facility] has implemented the eGFR calculation approach that does not have a coefficient for race that conforms to the NKF-ASN Task Force Recommendations. Performed By: #### 4 6449 ####[facility] [address] [place] [address] 67064 Glenn Gudino M.D. [id number] Sodium [Moles/Vol] 133 mmol/L Low 135-145 [facility] Comment on above: Order Comment: [facility] has implemented the eGFR calculation approach that does not have a coefficient for race that conforms to the NKF-ASN Task Force Recommendations. Performed By: #### 4 6449 ####[facility] [address] [place] [address] 04755 Glenn Gudnio M.D. [id number] Urea nitrogen [Mass/Vol] 26 mg/dL High 8-25 [facility] Comment on above: Order Comment: [facility] has implemented the eGFR calculation approach that does not have a coefficient for race that conforms to the NKF-ASN Task Force Recommendations. Performed By: #### 4 6449 ####[facility] [address] [place] [address] 48531 Glenn Gudino M.D. [id number] Urea nitrogen/Creatinine [Mass ratio] 13.2 mg/mg Normal 10.0-20.0 [facility] Comment on above: Order Comment: [facility] has implemented the eGFR calculation approach that does not have a coefficient for race that conforms to the NKF-ASN Task Force Recommendations. Performed By: #### 4 6449 ####[facility] [address] [place], [place] [address] Glenn Gudino M.D. [id number] TYPE AND SCREENon 02-06-2024 TYPE AND SCREEN ABORH: O Positive AB SCREEN: Positive EXPIRATION DATE: 02/09/2024 23:59 EST Normal [facility] Comment on above: Performed By: #### 4 6619 ####[facility] [address] [place] [address] Nurys Oneill MD [id number] [facility] XR CHEST PA/APon 02-06-2024 XR CHEST PA/AP [facility] Comment on above: Order Comment: Injur y/Trauma or Illness?:Illness/OtherHow long have you had these symptoms (acute/chronic)?:UnknownReason for exam?:chest tube palcement, pneumothoraxHistory of cancer?:uSurgeries, chemotherapy, or radiation?:uType of Exam?:OngoingAdditional signs and symptoms?:chest tube palcement, pneumothorax CALCIUM, IONIZEDon CALCIUM IONIZED 4.6 mg/dL Normal 4.5-5.3 [facility] Comment on above: Order Comment: Serum , non-CRRT source. Performed By: #### 4 5190 ####[facility] [address] [place] [address] Glenn Gudino M.D. [id number] CBCon 02-05-2024 AUTO NRBC 0.0 % Normal [facility] Comment on above: Performed By: #### 4 [id number] ####[facility] [address] [place], [place] [address] Glenn Gudino M.D. [id number] AUTO NRBC ABS COUNT 0.00 K/mcL Normal 0.00-0.00 [facility] Comment on above: Performed By: #### 4 [id number] ####[facility] [address] [place], [place] [address] Glenn Gudino M.D. [id number] Erythrocyte distribution width (RBC) [Ratio] 18.2 % High 11.6-14.8 [facility] Comment on above: Performed By: #### 4 [id number] ####[facility] [address] [place], [place] [address] Glenn Gudino M.D. [id number] Hematocrit (Bld) [Volume fraction] 27.7 % Low 36.0-46.0 [facility] Comment on above: Performed By: #### 4 [id number] ####[facility] [address] [place] [address] Glenn Gudino M.D. [id number] Hemoglobin (Bld) [Mass/Vol] 8.7 g/dL Low 12.0-16.0 [facility] Comment on above: Performed By: #### 4 [id number] ####[facility] [address] [place] [address] Glenn Gudino M.D. [id number] MCH (RBC) [Entitic mass] 28.8 pg Normal 26.0-34.0 [facility] Comment on above: Performed By: #### 4 [id number] ####[facility] [address] [place], [place] [address] Glenn Gudino M.D. [id number] MCV (RBC) [Entitic vol] 91.7 fL Normal 80.0-100.0 [facility] Comment on above: Performed By: #### 4 [id number] ####[facility] [address] [place], [place] [address] Glenn Gudino M.D. [id number] MEAN CORPUSCULAR HEMOGLOBIN CONC 31.4 g/dL Normal 31.0-37.0 [facility] Comment on above: Performed By: #### 4 [id number] ####[facility] [address] [place], [place] [address] Glenn Gudino M.D. [id number] Platelet mean volume (Bld) [Entitic vol] 9.5 fL Normal 9.4-12.4 [facility] Comment on above: Performed By: #### 4 [id number] ####[facility] [address] [place] [address] 17199 Glenn Gudino M.D. [id number] Platelets (Bld) [#/Vol] 226 10*3/uL Normal 150-400 [facility] Comment on above: Performed By: #### 4 [id number] ####[facility] [address] [place] [address] 14280 Glenn Gudino M.D. [id number] RBC (Bld) [#/Vol] 3.02 10*6/uL Low 4.00-5.20 [facility] Comment on above: Performed By: #### 4 [id number] ####[facility] [address] [place] [address] 70691 Glenn Gudino M.D. [id number] WBC (Bld) [#/Vol] 15.07 10*3/uL High 4.50-11.00 [facility] Comment on above: Performed By: #### 4 [id number] ####[facility] [address] [place] [address] 72923 Glenn Gudino M.D. [id number] COMPREHENSIVE METABOLIC PANE [place] 02-05-2024 Albumin [Mass/Vol] 2.5 g/dL Low 3.2-5.2 [facility] Comment on above: Order Comment: [facility] has implemented the eGFR calculation approach that does not have a coefficient for race that conforms to the NKF-ASN Task Force Recommendations. Performed By: #### 4 6126 ####[facility] [address] [place] [address] 16436 Glenn Gudino M.D. [id number] ALP [Catalytic activity/Vol] 50 U/L Normal 40-150 [facility] Comment on above: Order Comment: [facility] has implemented the eGFR calculation approach that does not have a coefficient for race that conforms to the NKF-ASN Task Force Recommendations. Performed By: #### 4 6126 ####[facility] [address] [place], [place] [address] Glenn Gudino M.D. [id number] ALT [Catalytic activity/Vol] 7 U/L Normal 0-35 U/L [facility] Comment on above: Order Comment: [facility] has implemented the eGFR calculation approach that does not have a coefficient for race that conforms to the NKF-ASN Task Force Recommendations. Performed By: #### 4 6126 ####[facility] [address] [place] [address] 60746 Glenn Gudino M.D. [id number] Anion gap [Moles/Vol] 12 mmol/L Normal 10-20 [facility] Comment on above: Order Comment: [facility] has implemented the eGFR calculation approach that does not have a coefficient for race that conforms to the NKF-ASN Task Force Recommendations. Performed By: #### 4 6126 ####[facility] [address] [place] [address] 32543 Glenn Gudino M.D. [id number] AST [Catalytic activity/Vol] 23 U/L Normal 0-35 U/L [facility] Comment on above: Order Comment: [facility] has implemented the eGFR calculation approach that does not have a coefficient for race that conforms to the NKF-ASN Task Force Recommendations. Performed By: #### 4 6126 ####[facility] [address] [place] [address] 46426 Glenn Gudino M.D. [id number] Bilirubin [Mass/Vol] 0.4 mg/dL Normal 0.0-1.3 [facility] Comment on above: Order Comment: [facility] has implemented the eGFR calculation approach that does not have a coefficient for race that conforms to the NKF-ASN Task Force Recommendations. Performed By: #### 4 6126 ####[facility] [address] [place] [address] 55607 Glenn Gudino M.D. [id number] Calcium [Mass/Vol] 7.8 mg/dL Low 8.4-10.2 [facility] Comment on above: Order Comment: [facility] has implemented the eGFR calculation approach that does not have a coefficient for race that conforms to the NKF-ASN Task Force Recommendations. Performed By: #### 4 6126 ####[facility] [address] [place] [address] 88037 Glenn Gudino M.D. [id number] Chloride [Moles/Vol] 96 mmol/L Low 98-108 [facility] Comment on above: Order Comment: [facility] has implemented the eGFR calculation approach that does not have a coefficient for race that conforms to the NKF-ASN Task Force Recommendations. Performed By: #### 4 6126 ####[facility] [address] [place] [address] 92250 Glenn Gudino M.D. [id number] Creatinine [Mass/Vol] 2.82 mg/dL High 0.60-1.10 [facility] Comment on above: Order Comment: [facility] has implemented the eGFR calculation approach that does not have a coefficient for race that conforms to the NKF-ASN Task Force Recommendations. Performed By: #### 4 6126 ####[facility] [address] [place] [address] 94672 Glenn Gudino M.D. [id number] EGFR 19 mL/min/1.73 m2 Low >=60 [facility] Comment on above: Order Comment: [facility] has implemented the eGFR calculation approach that does not have a coefficient for race that conforms to the NKF-ASN Task Force Recommendations. Result Comment: Joi mated GFR was calculated using the 2020 CKD-EPI creatinine equation. Performed By: #### 4 6126 ####[facility] [address] [place] [address] 73209 Glenn Gudino M.D. [id number] Glucose [Mass/Vol] 173 mg/dL High 65-99 [facility] Comment on above: Order Comment: [facility] has implemented the eGFR calculation approach that does not have a coefficient for race that conforms to the NKF-ASN Task Force Recommendations. Performed By: #### 4 6126 ####[facility] [address] [place] [address] 97171 Glenn Gudino M.D. [id number] HCO3 (Bld) [Moles/Vol] 28 mmol/L Normal 21-32 [facility] Comment on above: Order Comment: [facility] has implemented the eGFR calculation approach that does not have a coefficient for race that conforms to the NKF-ASN Task Force Recommendations. Performed By: #### 4 6126 ####[facility] [address] [place], [place] [address] Glenn Gudino M.D. [id number] Potassium [Moles/Vol] 4.1 mmol/L Normal 3.5-5.1 [facility] Comment on above: Order Comment: [facility] has implemented the eGFR calculation approach that does not have a coefficient for race that conforms to the NKF-ASN Task Force Recommendations. Performed By: #### 4 6126 ####[facility] [address] [place] [address] 60888 Glenn Gudino M.D. [id number] Protein [Mass/Vol] 5.1 g/dL Low 6.0-8.0 [facility] Comment on above: Order Comment: [facility] has implemented the eGFR calculation approach that does not have a coefficient for race that conforms to the NKF-ASN Task Force Recommendations. Performed By: #### 4 6126 ####[facility] [address] [place] [address] 66221 Glenn Gudino M.D. [id number] Sodium [Moles/Vol] 132 mmol/L Low 135-145 [facility] Comment on above: Order Comment: [facility] has implemented the eGFR calculation approach that does not have a coefficient for race that conforms to the NKF-ASN Task Force Recommendations. Performed By: #### 4 6126 ####[facility] [address] [place], [place] [address] Glenn Gudino M.D. [id number] Urea nitrogen [Mass/Vol] 34 mg/dL High 8-25 [facility] Comment on above: Order Comment: [facility] has implemented the eGFR calculation approach that does not have a coefficient for race that conforms to the NKF-ASN Task Force Recommendations. Performed By: #### 4 6126 ####[facility] [address] [place], [place] [address] Glenn Gudino M.D. [id number] Urea nitrogen/Creatinine [Mass ratio] 12.1 mg/mg Normal 10.0-20.0 [facility] Comment on above: Order Comment: [facility] has implemented the eGFR calculation approach that does not have a coefficient for race that conforms to the NKF-ASN Task Force Recommendations. Performed By: #### 4 6126 ####[facility] [address] [place], [place] [address] Glenn Gudino M.D. [id number] MAGNESIUM LEVELon 02-05-2024 Magnesium [Mass/Vol] 2.1 mg/dL Normal 1.6-2.4 [facility] Comment on above: Performed By: #### 4 6109 ####[facility] [address] [place] [address] 72467 Glenn Gudino M.D. [id number] PHOSPHORUSon 02-05-2024 Phosphate [Mass/Vol] 2.8 mg/dL Normal 2.8-4.1 [facility] Comment on above: Performed By: #### 4 6299 ####[facility] [address] [place] [address] 34550 Glenn Gudino M.D. [id number] POC GLUCOSE - [facility] 024 Glucose [Mass/Vol] 143 mg/dL High [address] [place] [address] Comment on above: Performed By: #### 4 6932 ####[facility] [address] [place] [address] [id number] [facility] Glucose [Mass/Vol] 186 mg/dL High [address] [place] [address] Comment on above: Performed By: #### 4 6962 ####[facility] [address] [place] [address] [id number] [facility] Glucose [Mass/Vol] 97 mg/dL Normal [address] [place] [address] Comment on above: Performed By: #### 4 6975 ####[facility] [address] [place] [address] [id number] [facility] Glucose [Mass/Vol] 201 mg/dL High [address] [place] [address] Comment on above: Performed By: #### 4 6932 ####[facility] [address] [place] [address] [id number] [facility] Glucose [Mass/Vol] 193 mg/dL High [address] [place] [address] Comment on above: Performed By: #### 4 6932 ####[facility] [address] [place] [address] [id number] [facility] Glucose [Mass/Vol] 185 mg/dL High [address] [place] [address] Comment on above: Performed By: #### 4 6966 ####[facility] [address] [place] [address] [id number] [facility] Glucose [Mass/Vol] 172 mg/dL High [address] [place] [address] Comment on above: Performed By: #### 4 0125 ####[facility] [address] [place] [address] [id number] [facility] PREALBUMINon 02-05-2024 Prealbumin [Mass/Vol] 10.7 mg/dL Low 20.0-40.0 [facility] Comment on above: Performed By: #### 4 6355 ####[facility] [address] [place] [address] 03941 Glenn Gudino M.D. [id number] TRIGLYCERIDESon 02-05-2024 Triglyceride [Mass/Vol] 249 mg/dL High 30-150 [facility] Comment on above: Result Comment: Lucila onal Cholesterol Education Program Guidelines: TriglycerideNormal: <150 mg/dLBorderline High: 150-199 mg/dLHigh: 200-499 mg/dLVery High: greater than or equal to 500 mg/dL Performed By: #### 4 6606 ####[facility] [address] [place] [address] 29544 Glenn Gudino M.D. [id number] XR CHEST PA/APon 02-05-2024 XR CHEST PA/AP Normal [facility] Comment on above: Order Comment: Injur y/Trauma or Illness?:Illness/OtherHow long have you had these symptoms (acute/chronic)?:UnknownReason for exam?:chest tube palcement, pneumothoraxHistory of cancer?:uSurgeries, chemotherapy, or radiation?:uType of Exam?:InitialAdditional signs and symptoms?:. CALCIUM, IONIZEDon CALCIUM IONIZED 4.6 mg/dL Normal 4.5-5.3 [facility] Comment on above: Order Comment: Serum , non-CRRT source. Performed By: #### 4 5190 ####[facility] [address] [place] [address] 31216 Glenn Gudino M.D. [id number] CBCon 02-04-2024 AUTO NRBC 0.0 % Normal [facility] Comment on above: Performed By: #### 4 5218 ####[facility] [address] [place] [address] 47401 Glenn Gudino M.D. [id number] AUTO NRBC ABS COUNT 0.00 K/mcL Normal 0.00-0.00 [facility] Comment on above: Performed By: #### 4 5218 ####[facility] [address] [place], [place] [address] Glenn Gudino M.D. [id number] Erythrocyte distribution width (RBC) [Ratio] 18.1 % High 11.6-14.8 [facility] Comment on above: Performed By: #### 4 5218 ####[facility] [address] [place] [address] Glenn Gudino M.D. [id number] Hematocrit (Bld) [Volume fraction] 27.1 % Low 36.0-46.0 [facility] Comment on above: Performed By: #### 4 5218 ####[facility] [address] [place] [address] Glenn Gudino M.D. [id number] Hemoglobin (Bld) [Mass/Vol] 8.5 g/dL Low 12.0-16.0 [facility] Comment on above: Performed By: #### 4 5218 ####[facility] [address] [place], [place] [address] Glenn Gudino M.D. [id number] MCH (RBC) [Entitic mass] 28.6 pg Normal 26.0-34.0 [facility] Comment on above: Performed By: #### 4 5218 ####[facility] [address] [place], [place] [address] Glenn Gudino M.D. [id number] MCV (RBC) [Entitic vol] 91.2 fL Normal 80.0-100.0 [facility] Comment on above: Performed By: #### 4 5218 ####[facility] [address] [place], [place] [address] Glenn Gudino M.D. [id number] MEAN CORPUSCULAR HEMOGLOBIN CONC 31.4 g/dL Normal 31.0-37.0 [facility] Comment on above: Performed By: #### 4 3918 ####[facility] [address] [place] [address] 65409 Glenn Gudino M.D. [id number] Platelet mean volume (Bld) [Entitic vol] 10.0 fL Normal 9.4-12.4 [facility] Comment on above: Performed By: #### 4 5218 ####[facility] [address] [place] [address] 34327 Glenn Gudino M.D. [id number] Platelets (Bld) [#/Vol] 215 10*3/uL Normal 150-400 [facility] Comment on above: Performed By: #### 4 5218 ####[facility] [address] [place] [address] 48644 Glenn Gudino M.D. [id number] RBC (Bld) [#/Vol] 2.97 10*6/uL Low 4.00-5.20 [facility] Comment on above: Performed By: #### 4 5218 ####[facility] [address] [place] [address] 95766 Glenn Gudino M.D. [id number] WBC (Bld) [#/Vol] 13.18 10*3/uL High 4.50-11.00 [facility] Comment on above: Performed By: #### 4 5218 ####[facility] [address] [place] [address] 48944 Glenn Gudino M.D. [id number] COMPREHENSIVE METABOLIC PANE Magdaleno 02-04-2024 ALP [Catalytic activity/Vol] 47 U/L Normal 40-150 [facility] Comment on above: Order Comment: [facility] has implemented the eGFR calculation approach that does not have a coefficient for race that conforms to the NKF-ASN Task Force Recommendations. Performed By: #### 4 6126 ####[facility] [address] [place] [address] 98546 Glenn Gudino M.D. [id number] ALT [Catalytic activity/Vol] 6 U/L Normal 0-35 U/L [facility] Comment on above: Order Comment: [facility] has implemented the eGFR calculation approach that does not have a coefficient for race that conforms to the NKF-ASN Task Force Recommendations. Performed By: #### 4 6126 ####[facility] [address] [place], [place] [address] Glenn Gudino M.D. [id number] AST [Catalytic activity/Vol] 20 U/L Normal 0-35 U/L [facility] Comment on above: Order Comment: [facility] has implemented the eGFR calculation approach that does not have a coefficient for race that conforms to the NKF-ASN Task Force Recommendations. Performed By: #### 4 6126 ####[facility] [address] [place], [place] [address] Glenn Gudino M.D. [id number] Bilirubin [Mass/Vol] 0.6 mg/dL Normal 0.0-1.3 [facility] Comment on above: Order Comment: [facility] has implemented the eGFR calculation approach that does not have a coefficient for race that conforms to the NKF-ASN Task Force Recommendations. Performed By: #### 4 6126 ####[facility] [address] [place] [address] 44593 Glenn Gudino M.D. [id number] Protein [Mass/Vol] 5.2 g/dL Low 6.0-8.0 [facility] Comment on above: Order Comment: [facility] has implemented the eGFR calculation approach that does not have a coefficient for race that conforms to the NKF-ASN Task Force Recommendations. Performed By: #### 4 6126 ####[facility] [address] [place], [place] [address] Glenn Gudino M.D. [id number] MAGNESIUM LEVELon 02-04-2024 Magnesium [Mass/Vol] 2.0 mg/dL Normal 1.6-2.4 [facility] Comment on above: Performed By: #### 4 6109 ####[facility] [address] [place] [address] Glenn Gudino M.D. [id number] POC GLUCOSE - [facility] 024 Glucose [Mass/Vol] 136 mg/dL High [address] [place] [address] Comment on above: Performed By: #### 4 6986 ####[facility] [address] [place] [address] [id number] [facility] Glucose [Mass/Vol] 181 mg/dL High [address] [place] [address] Comment on above: Performed By: #### 4 8485 ####[facility] [address] [place] [address] [id number] [facility] Glucose [Mass/Vol] 178 mg/dL High [address] [place] [address] Comment on above: Performed By: #### 4 3557 ####[facility] [address] [place] [address] [id number] [facility] Glucose [Mass/Vol] 155 mg/dL High [address] [place] [address] Comment on above: Performed By: #### 4 8181 ####[facility] [address] [place] [address] [id number] [facility] Glucose [Mass/Vol] 145 mg/dL High [address] [place] [address] Comment on above: Performed By: #### 4 9203 ####[facility] [address] [place] [address] [id number] [facility] Glucose [Mass/Vol] 85 mg/dL Normal [address] [place] [address] Comment on above: Performed By: #### 4 2021 ####[facility] [address] [place] [address] [id number] [facility] PREALBUMINon 02-04-2024 Prealbumin [Mass/Vol] 8.8 mg/dL Low 20.0-40.0 [facility] Comment on above: Performed By: #### 4 6355 ####[facility] [address] [place], [place] [address] Glenn Gudino M.D. [id number] RENAL FUNCTION PANELon 02-03 Albumin [Mass/Vol] 2.6 g/dL Low 3.2-5.2 [facility] Comment on above: Order Comment: [facility] has implemented the eGFR calculation approach that does not have a coefficient for race that conforms to the NKF-ASN Task Force Recommendations. Performed By: #### 4 6449 ####[facility] [address] [place], [place] [address] Glenn Gudino M.D. [id number] Performed By: #### 4 6126 ####[facility] [address] [place], [place] [address] Glenn Gudino M.D. [id number] Anion gap [Moles/Vol] 15 mmol/L Normal 10-20 [facility] Comment on above: Order Comment: [facility] has implemented the eGFR calculation approach that does not have a coefficient for race that conforms to the NKF-ASN Task Force Recommendations. Performed By: #### 4 6449 ####[facility] [address] [place], [place] [address] Glenn Gudino M.D. [id number] Performed By: #### 4 6126 ####[facility] [address] [place], [place] [address] Glenn Gudino M.D. [id number] Calcium [Mass/Vol] 8.1 mg/dL Low 8.4-10.2 [facility] Comment on above: Order Comment: [facility] has implemented the eGFR calculation approach that does not have a coefficient for race that conforms to the NKF-ASN Task Force Recommendations. Performed By: #### 4 6449 ####[facility] [address] [place] [address] Glenn Gudino M.D. [id number] Performed By: #### 4 6126 ####[facility] [address] [place], [place] [address] Glenn Gudino M.D. [id number] Chloride [Moles/Vol] 95 mmol/L Low 98-108 [facility] Comment on above: Order Comment: [facility] has implemented the eGFR calculation approach that does not have a coefficient for race that conforms to the NKF-ASN Task Force Recommendations. Performed By: #### 4 6449 ####[facility] [address] [place] [address] Glenn Gudino M.D. [id number] Performed By: #### 4 6126 ####[place] [address] Glenn Gudino M.D. [id number] Creatinine [Mass/Vol] 2.14 mg/dL High 0.60-1.10 [facility] Comment on above: Order Comment: [facility] has implemented the eGFR calculation approach that does not have a coefficient for race that conforms to the NKF-ASN Task Force Recommendations. Performed By: #### 4 6449 ####[facility] [address] [place] [address] Glenn Gudino M.D. [id number] Performed By: #### 4 6126 ####[facility] [address] [place], [place] [address] Glenn Gudino M.D. [id number] EGFR 26 mL/min/1.73 m2 Low >=60 [facility] Comment on above: Order Comment: [facility] has implemented the eGFR calculation approach that does not have a coefficient for race that conforms to the NKF-ASN Task Force Recommendations. Result Comment: Joi mated GFR was calculated using the 2020 CKD-EPI creatinine equation. Performed By: #### 4 6449 ####[facility] [address] [place] [address] 17297 Glenn Gudino M.D. [id number] Result Comment: Joi mated GFR was calculated using the 2020 CKD-EPI creatinine equation.Estimated GFR was calculated using the 2020 CKD-EPI creatinine equation. Performed By: #### 4 6126 ####[facility] [address] [place], [place] [address] Glenn Gudino M.D. [id number] Glucose [Mass/Vol] 151 mg/dL High 65-99 [facility] Comment on above: Order Comment: [facility] has implemented the eGFR calculation approach that does not have a coefficient for race that conforms to the NKF-ASN Task Force Recommendations. Performed By: #### 4 6449 ####[facility] [address] [place], [place] [address] Glenn Gudino M.D. [id number] Performed By: #### 4 6126 ####[facility] [address] [place] [address] 66822 Glenn Gudino M.D. [id number] HCO3 (Bld) [Moles/Vol] 26 mmol/L Normal 21-32 [facility] Comment on above: Order Comment: [facility] has implemented the eGFR calculation approach that does not have a coefficient for race that conforms to the NKF-ASN Task Force Recommendations. Performed By: #### 4 6449 ####[facility] [address] [place] [address] 80378 Glenn Gudino M.D. [id number] Performed By: #### 4 6126 ####[facility] [address] [place] [address] 25978 Glenn Gudino M.D. [id number] Phosphate [Mass/Vol] 3.4 mg/dL Normal 2.8-4.1 [facility] Comment on above: Order Comment: [facility] has implemented the eGFR calculation approach that does not have a coefficient for race that conforms to the NKF-ASN Task Force Recommendations. Performed By: #### 4 6449 ####[facility] [address] [place] [address] 06750 Glenn Gudino M.D. [id number] Potassium [Moles/Vol] 4.1 mmol/L Normal 3.5-5.1 [facility] Comment on above: Order Comment: [facility] has implemented the eGFR calculation approach that does not have a coefficient for race that conforms to the NKF-ASN Task Force Recommendations. Performed By: #### 4 6449 ####[facility] [address] [place], [place] [address] Glenn Gudino M.D. [id number] Performed By: #### 4 6126 ####[facility] [address] [place], [place] [address] Glenn Gudino M.D. [id number] Sodium [Moles/Vol] 132 mmol/L Low 135-145 [facility] Comment on above: Order Comment: [facility] has implemented the eGFR calculation approach that does not have a coefficient for race that conforms to the NKF-ASN Task Force Recommendations. Performed By: #### 4 6449 ####[facility] [address] [place] [address] 44869 Glenn Gudino M.D. [id number] Performed By: #### 4 6126 ####[facility] [address] [place] [address] 54268 Glenn Gudino M.D. [id number] Urea nitrogen [Mass/Vol] 22 mg/dL Normal 8-25 [facility] Comment on above: Order Comment: [facility] has implemented the eGFR calculation approach that does not have a coefficient for race that conforms to the NKF-ASN Task Force Recommendations. Performed By: #### 4 6449 ####[facility] [address] [place] [address] 42530 Glenn Gudino M.D. [id number] Performed By: #### 4 6126 ####[facility] [address] [place] [address] 12918 Glenn Gudino M.D. [id number] Urea nitrogen/Creatinine [Mass ratio] 10.3 mg/mg Normal 10.0-20.0 [facility] Comment on above: Order Comment: [facility] has implemented the eGFR calculation approach that does not have a coefficient for race that conforms to the NKF-ASN Task Force Recommendations. Performed By: #### 4 6449 ####[facility] [address] [place], [place] [address] Glenn Gudino M.D. [id number] Performed By: #### 4 6126 ####[facility] [address] [place], [place] [address] Glenn Gudino M.D. [id number] TRIGLYCERIDESon 02-04-2024 Triglyceride [Mass/Vol] 339 mg/dL High 30-150 [facility] Comment on above: Result Comment: Lucila onal Cholesterol Education Program Guidelines: TriglycerideNormal: <150 mg/dLBorderline High: 150-199 mg/dLHigh: 200-499 mg/dLVery High: greater than or equal to 500 mg/dL Performed By: #### 4 6606 ####[facility] [address] [place] [address] Glenn Gudino M.D. [id number] XR CHEST PA/APon 02-04-2024 XR CHEST PA/AP Normal [facility] Comment on above: Order Comment: Injur y/Trauma or Illness?:Illness/OtherHow long have you had these symptoms (acute/chronic)?:AcuteReason for exam?:chest tube palcement, pneumothoraxHistory of cancer?:uSurgeries, chemotherapy, or radiation?:uType of Exam?:OngoingAdditional signs and symptoms?:chest tube palcement, pneumothorax ANTIBODY IDENTIFICATION-Con 02-03-2024 ANTIBODY IDENTIFICATION-C Normal [facility] Comment on above: Performed By: #### 4 [id number]_Anti-C ####[facility] [address] [place] [address] Nurys Oneill MD [id number] [facility] CALCIUM, IONIZEDon CALCIUM IONIZED 4.5 mg/dL Normal 4.5-5.3 [facility] Comment on above: Order Comment: Serum , non-CRRT source. Performed By: #### 4 5190 ####[facility] [address] [place] [address] Glenn Gudino M.D. [id number] CBCon 02-03-2024 AUTO NRBC 0.0 % Normal [facility] Comment on above: Performed By: #### 4 [id number] ####[facility] [address] [place] [address] Glenn Gudino M.D. [id number] AUTO NRBC ABS COUNT 0.00 K/mcL Normal 0.00-0.00 [facility] Comment on above: Performed By: #### 4 [id number] ####[facility] [address] [place], [place] [address] Glenn Gudino M.D. [id number] Erythrocyte distribution width (RBC) [Ratio] 17.8 % High 11.6-14.8 [facility] Comment on above: Performed By: #### 4 [id number] ####[facility] [address] [place], [place] [address] Glenn Gudino M.D. [id number] Hematocrit (Bld) [Volume fraction] 29.4 % Low 36.0-46.0 [facility] Comment on above: Performed By: #### 4 [id number] ####[facility] [address] [place], [place] [address] Glenn Gudino M.D. [id number] Hemoglobin (Bld) [Mass/Vol] 9.6 g/dL Low 12.0-16.0 [facility] Comment on above: Performed By: #### 4 [id number] ####[facility] [address] [place], [place] [address] Glenn Gudino M.D. [id number] MCH (RBC) [Entitic mass] 29.0 pg Normal 26.0-34.0 [facility] Comment on above: Performed By: #### 4 [id number] ####[facility] [address] [place], [place] [address] lGenn Gudino M.D. [id number] MCV (RBC) [Entitic vol] 88.8 fL Normal 80.0-100.0 [facility] Comment on above: Performed By: #### 4 [id number] ####[facility] [address] [place], [place] [address] Glenn Gudino M.D. [id number] MEAN CORPUSCULAR HEMOGLOBIN CONC 32.7 g/dL Normal 31.0-37.0 [facility] Comment on above: Performed By: #### 4 [id number] ####[facility] [address] [place], [place] [address] Glenn Gudino M.D. [id number] Platelet mean volume (Bld) [Entitic vol] 9.6 fL Normal 9.4-12.4 [facility] Comment on above: Performed By: #### 4 [id number] ####[facility] [address] [place], [place] [address] Glenn Gudino M.D. [id number] Platelets (Bld) [#/Vol] 150 10*3/uL Normal 150-400 [facility] Comment on above: Performed By: #### 4 [id number] ####[facility] [address] [place], [place] [address] Glenn Gudino M.D. [id number] RBC (Bld) [#/Vol] 3.31 10*6/uL Low 4.00-5.20 [facility] Comment on above: Performed By: #### 4 [id number] ####[facility] [address] [place] [address] Glenn Gudino M.D. [id number] WBC (Bld) [#/Vol] 13.45 10*3/uL High 4.50-11.00 [facility] Comment on above: Performed By: #### 4 [id number] ####[facility] [address] [place] [address] Glenn Gudino M.D. [id number] CONSULTon 02-03-2024 CONSULT VIR consulted for no n tunneled CVC for short term TPN. Spoke to vascular surgery team. They'll plan to place an IJV line. AUTHENTICATED BY ROBERT DEL VALLE ON 02/03/2024 11:17:22 Normal [facility] MAGNESIUM LEVELon 02-03-2024 Magnesium [Mass/Vol] 2.1 mg/dL Normal 1.6-2.4 [facility] Comment on above: Performed By: #### 4 6109 ####[facility] [address] [place] [address] Glenn Gudino M.D. [id number] POC GLUCOSE - [facility] 024 Glucose [Mass/Vol] 95 mg/dL Normal 65-99 [facility] Comment on above: Performed By: #### 4 6977 ####[facility] [address] [place] [address] [id number] [facility] Glucose [Mass/Vol] 102 mg/dL High 65-99 [facility] Comment on above: Performed By: #### 4 6999 ####[facility] [address] [place] [address] [id number] [facility] Glucose [Mass/Vol] 113 mg/dL High 65-99 [facility] Comment on above: Performed By: #### 4 6941 ####[facility] [address] [place] [address] [id number] [facility] Glucose [Mass/Vol] 132 mg/dL High 65- [facility] Comment on above: Performed By: #### 4 6932 ####[facility] [address] [place] [address] [id number] [facility] Glucose [Mass/Vol] 145 mg/dL High 65- [facility] Comment on above: Performed By: #### 4 6932 ####[facility] [address] [place] [address] [id number] [facility] Glucose [Mass/Vol] 131 mg/dL High - [facility] Comment on above: Performed By: #### 4 6932 ####[facility] [address] [place] [address] [id number] [facility] RENAL FUNCTION PANELon 02-02 Albumin [Mass/Vol] 2.4 g/dL Low 3.2-5.2 [facility] Comment on above: Order Comment: [facility] has implemented the eGFR calculation approach that does not have a coefficient for race that conforms to the NKF-ASN Task Force Recommendations. Performed By: #### 4 6449 ####[facility] [address] [place] [address] Glenn Gudino M.D. [id number] Anion gap [Moles/Vol] 16 mmol/L Normal 10-20 [facility] Comment on above: Order Comment: [facility] has implemented the eGFR calculation approach that does not have a coefficient for race that conforms to the NKF-ASN Task Force Recommendations. Performed By: #### 4 6449 ####[facility] [address] [place], [place] [address] Glenn Gudino M.D. [id number] Calcium [Mass/Vol] 7.9 mg/dL Low 8.4-10.2 [facility] Comment on above: Order Comment: [facility] has implemented the eGFR calculation approach that does not have a coefficient for race that conforms to the NKF-ASN Task Force Recommendations. Performed By: #### 4 6449 ####[facility] [address] [place] [address] 20280 Glenn Gudino M.D. [id number] Chloride [Moles/Vol] 97 mmol/L Low 98-108 [facility] Comment on above: Order Comment: [facility] has implemented the eGFR calculation approach that does not have a coefficient for race that conforms to the NKF-ASN Task Force Recommendations. Performed By: #### 4 6449 ####[facility] [address] [place] [address] 30283 Glenn Gudino M.D. [id number] Creatinine [Mass/Vol] 2.53 mg/dL High 0.60-1.10 [facility] Comment on above: Order Comment: [facility] has implemented the eGFR calculation approach that does not have a coefficient for race that conforms to the NKF-ASN Task Force Recommendations. Performed By: #### 4 6449 ####[facility] [address] [place] [address] Glenn Gudino M.D. [id number] EGFR 21 mL/min/1.73 m2 Low >=60 [facility] Comment on above: Order Comment: [facility] has implemented the eGFR calculation approach that does not have a coefficient for race that conforms to the NKF-ASN Task Force Recommendations. Result Comment: Joi mated GFR was calculated using the 2020 CKD-EPI creatinine equation. Performed By: #### 4 6449 ####[facility] [address] [place] [address] Glenn Gudino M.D. [id number] Glucose [Mass/Vol] 154 mg/dL High 65-99 [facility] Comment on above: Order Comment: [facility] has implemented the eGFR calculation approach that does not have a coefficient for race that conforms to the NKF-ASN Task Force Recommendations. Performed By: #### 4 6449 ####[facility] [address] [place] [address] Glenn Gudino M.D. [id number] HCO3 (Bld) [Moles/Vol] 25 mmol/L Normal 21-32 [facility] Comment on above: Order Comment: [facility] has implemented the eGFR calculation approach that does not have a coefficient for race that conforms to the NKF-ASN Task Force Recommendations. Performed By: #### 4 6449 ####[facility] [address] [place] [address] Glenn Gudino M.D. [id number] Phosphate [Mass/Vol] 3.6 mg/dL Normal 2.8-4.1 [facility] Comment on above: Order Comment: [facility] has implemented the eGFR calculation approach that does not have a coefficient for race that conforms to the NKF-ASN Task Force Recommendations. Performed By: #### 4 6449 ####[facility] [address] [place] [address] Glenn Gudino M.D. [id number] Potassium [Moles/Vol] 5.8 mmol/L High 3.5-5.1 [facility] Comment on above: Order Comment: [facility] has implemented the eGFR calculation approach that does not have a coefficient for race that conforms to the NKF-ASN Task Force Recommendations. Performed By: #### 4 6449 ####[facility] [address] [place] [address] Glenn Gudino M.D. [id number] Sodium [Moles/Vol] 132 mmol/L Low 135-145 [facility] Comment on above: Order Comment: [facility] has implemented the eGFR calculation approach that does not have a coefficient for race that conforms to the NKF-ASN Task Force Recommendations. Performed By: #### 4 6449 ####[facility] [address] [place], [place] [address] Glenn Gudino M.D. [id number] Urea nitrogen [Mass/Vol] 30 mg/dL High 8-25 [facility] Comment on above: Order Comment: [facility] has implemented the eGFR calculation approach that does not have a coefficient for race that conforms to the NKF-ASN Task Force Recommendations. Performed By: #### 4 6449 ####[facility] [address] [place] [address] Glenn Gudino M.D. [id number] Urea nitrogen/Creatinine [Mass ratio] 11.9 mg/mg Normal 10.0-20.0 [facility] Comment on above: Order Comment: [facility] has implemented the eGFR calculation approach that does not have a coefficient for race that conforms to the NKF-ASN Task Force Recommendations. Performed By: #### 4 6449 ####[facility] [address] [place] [address] Glenn Gudino M.D. [id number] TYPE AND SCREENon 02-03-2024 TYPE AND SCREEN Normal [facility] Comment on above: Performed By: #### 4 6619 ####[facility] [address] [place] [address] Nurys Oneill MD [id number] RM[facility] XR CHEST PA/APon 02-03-2024 XR CHEST PA/AP Normal [facility] Comment on above: Order Comment: Injur [...] IONIZEDon CALCIUM IONIZED 4.4 mg/dL Low 4.5-5.3 [facility] Comment on above: Performed By: #### 4 5190 ####[facility] [address] [place] [address] Glenn Gudino M.D. [id number] CBCon 02-02-2024 AUTO NRBC 0.0 % Normal [facility] Comment on above: Performed By: #### 4 [id number] ####[facility] [address] [place] [address] Glenn Gudino M.D. [id number] AUTO NRBC ABS COUNT 0.00 K/mcL Normal 0.00-0.00 [facility] Comment on above: Performed By: #### 4 [id number] ####[facility] [address] [place] [address] Glenn Gudino M.D. [id number] Erythrocyte distribution width (RBC) [Ratio] 18.9 % High 11.6-14.8 [facility] Comment on above: Performed By: #### 4 [id number] ####[facility] [address] [place], [place] [address] Glenn Gudino M.D. [id number] Hematocrit (Bld) [Volume fraction] 25.0 % Low 36.0-46.0 [facility] Comment on above: Performed By: #### 4 5218 ####[facility] [address] [place], [place] [address] Glenn Gudino M.D. [id number] Hemoglobin (Bld) [Mass/Vol] 7.9 g/dL Low 12.0-16.0 [facility] Comment on above: Performed By: #### 4 5218 ####[facility] [address] [place], [place] [address] Glenn Gudino M.D. [id number] MCH (RBC) [Entitic mass] 28.6 pg Normal 26.0-34.0 [facility] Comment on above: Performed By: #### 4 [id number] ####[facility] [address] [place] [address] 02902 Glenn Gudino M.D. [id number] MCV (RBC) [Entitic vol] 90.6 fL Normal 80.0-100.0 [facility] Comment on above: Performed By: #### 4 [id number] ####[facility] [address] [place], [place] [address] Glenn Gudino M.D. [id number] MEAN CORPUSCULAR HEMOGLOBIN CONC 31.6 g/dL Normal 31.0-37.0 [facility] Comment on above: Performed By: #### 4 5218 ####[facility] [address] [place], [place] [address] Glenn Gudino M.D. [id number] Platelet mean volume (Bld) [Entitic vol] 10.2 fL Normal 9.4-12.4 [facility] Comment on above: Performed By: #### 4 [id number] ####[facility] [address] [place], [place] [address] Glenn Gudino M.D. [id number] Platelets (Bld) [#/Vol] 171 10*3/uL Normal 150-400 [facility] Comment on above: Performed By: #### 4 [id number] ####[facility] [address] [place] [address] 68091 Glenn Gudino M.D. [id number] RBC (Bld) [#/Vol] 2.76 10*6/uL Low 4.00-5.20 [facility] Comment on above: Performed By: #### 4 [id number] ####[facility] [address] [place], [place] [address] Glenn Gudino M.D. [id number] WBC (Bld) [#/Vol] 12.32 10*3/uL High 4.50-11.00 [facility] Comment on above: Performed By: #### 4 5218 ####[facility] [address] [place] [address] Glenn Gudino M.D. [id number] AUTO NRBC 0.0 % Normal [facility] Comment on above: Performed By: #### 4 5218 ####[facility] [address] [place] [address] Glenn Gudino M.D. [id number] AUTO NRBC ABS COUNT 0.00 K/mcL Normal 0.00-0.00 [facility] Comment on above: Performed By: #### 4 [id number] ####[facility] [address] [place] [address] Glenn Gudino M.D. [id number] Erythrocyte distribution width (RBC) [Ratio] 19.0 % High 11.6-14.8 [facility] Comment on above: Performed By: #### 4 5218 ####[facility] [address] [place], [place] [address] Glenn Gudino M.D. [id number] Hematocrit (Bld) [Volume fraction] 23.5 % Low 36.0-46.0 [facility] Comment on above: Performed By: #### 4 5218 ####[facility] [address] [place], [place] [address] Glenn Gudino M.D. [id number] Hemoglobin (Bld) [Mass/Vol] 7.4 g/dL Low 12.0-16.0 [facility] Comment on above: Result Comment: Zuleima pheral smear reviewed manually Performed By: #### 4 2658 ####[facility] [address] [place], [place] [address] Glenn Gudino M.D. [id number] MCH (RBC) [Entitic mass] 27.9 pg Normal 26.0-34.0 [facility] Comment on above: Performed By: #### 4 5218 ####[facility] [address] [place], [place] [address] Glenn Gudino M.D. [id number] MCV (RBC) [Entitic vol] 88.7 fL Normal 80.0-100.0 [facility] Comment on above: Performed By: #### 4 5218 ####[facility] [address] [place], [place] [address] Glenn Gudino M.D. [id number] MEAN CORPUSCULAR HEMOGLOBIN CONC 31.5 g/dL Normal 31.0-37.0 [facility] Comment on above: Performed By: #### 4 [id number] ####[facility] [address] [place], [place] [address] Glenn Gudino M.D. [id number] Platelet mean volume (Bld) [Entitic vol] 10.5 fL Normal 9.4-12.4 [facility] Comment on above: Performed By: #### 4 [id number] ####[facility] [address] [place], [place] [address] Glenn Gudino M.D. [id number] Platelets (Bld) [#/Vol] 138 10*3/uL Low 150-400 [facility] Comment on above: Performed By: #### 4 5218 ####[facility] [address] [place], [place] [address] Gelnn Gudino M.D. [id number] RBC (Bld) [#/Vol] 2.65 10*6/uL Low 4.00-5.20 [facility] Comment on above: Performed By: #### 4 5218 ####[facility] [address] [place], [place] [address] Glenn Gudino M.D. [id number] WBC (Bld) [#/Vol] 9.43 10*3/uL Normal 4.50-11.00 [facility] Comment on above: Performed By: #### 4 [id number] ####[facility] [address] [place], [place] [address] Glenn Gudino M.D. [id number] CONSULTon 02-02-2024 CONSULT Normal [facility] CONSULT Normal [facility] CONSULT Normal [facility] CONSULT Normal [facility] CT ANGIOGRAM ABDOMEN PELVISo n 02-02-2024 CT ANGIOGRAM ABDOMEN PELVIS Normal [facility] Comment on above: Order Comment: Injur y/Trauma or Illness?:Illness/OtherHow long have you had these symptoms (acute/chronic)?:AcuteReason for exam?:hemoperitoneum on non con scan, recent RP open AAA repair/EVAR explantType of Exam?:InitialAdditional signs and symptoms?:na CT CHEST ABDOMEN PELVIS WITH OUT CONTRASTon 02-02-2024 CT CHEST ABDOMEN PELVIS WITHOUT CONTRAST Normal [facility] Comment on above: Order Comment: Injur [...] 02-02-2024 Magnesium [Mass/Vol] 2.1 mg/dL Normal 1.6-2.4 [facility] Comment on above: Performed By: #### 4 6109 ####[facility] [address] [place] [address] 08164 Glenn Gudino M.D. [id number] POC GLUCOSE - RALSon 024 Glucose [Mass/Vol] 114 mg/dL High 65-99 [facility] Comment on above: Performed By: #### 4 6932 ####[facility] [address] [place] [address] [id number] [facility] Glucose [Mass/Vol] 110 mg/dL High -[address] [place] [address] Comment on above: Performed By: #### 4 6932 ####[facility] [address] [place] [address] [id number] [facility] Glucose [Mass/Vol] 113 mg/dL High - [facility] Comment on above: Performed By: #### 4 6932 ####[facility] [address] [place] [address] [id number] [facility] Glucose [Mass/Vol] 128 mg/dL High [address] [place] [address] Comment on above: Performed By: #### 4 6932 ####[facility] [address] [place] [address] [id number] [facility] Glucose [Mass/Vol] 173 mg/dL High [address] [place] [address] Comment on above: Performed By: #### 4 6932 ####[facility] [address] [place] [address] [id number] [facility] Glucose [Mass/Vol] 82 mg/dL Normal [address] [place] [address] Comment on above: Performed By: #### 4 6999 ####[facility] [address] [place] [address] [id number] [facility] RENAL FUNCTION PANELon 02-01 Albumin [Mass/Vol] 2.3 g/dL Low 3.2-5.2 [facility] Comment on above: Order Comment: [facility] has implemented the eGFR calculation approach that does not have a coefficient for race that conforms to the NKF-ASN Task Force Recommendations. Performed By: #### 4 6449 ####[facility] [address] [place] [address] Glenn Gudino M.D. [id number] Anion gap [Moles/Vol] 14 mmol/L Normal 10-20 [facility] Comment on above: Order Comment: [facility] has implemented the eGFR calculation approach that does not have a coefficient for race that conforms to the NKF-ASN Task Force Recommendations. Performed By: #### 4 6449 ####[facility] [address] [place] [address] 87766 Glenn Gudino M.D. [id number] Calcium [Mass/Vol] 7.5 mg/dL Low 8.4-10.2 [facility] Comment on above: Order Comment: [facility] has implemented the eGFR calculation approach that does not have a coefficient for race that conforms to the NKF-ASN Task Force Recommendations. Performed By: #### 4 6449 ####[facility] [address] [place] [address]246 Glenn Gudino M.D. [id number] Chloride [Moles/Vol] 95 mmol/L Low 98-108 [facility] Comment on above: Order Comment: [facility] has implemented the eGFR calculation approach that does not have a coefficient for race that conforms to the NKF-ASN Task Force Recommendations. Performed By: #### 4 6449 ####[facility] [address] [place] [address] 35479 Glenn Gudino M.D. [id number] Creatinine [Mass/Vol] 1.98 mg/dL High 0.60-1.10 [facility] Comment on above: Order Comment: [facility] has implemented the eGFR calculation approach that does not have a coefficient for race that conforms to the NKF-ASN Task Force Recommendations. Performed By: #### 4 6449 ####[facility] [address] [place] [address]205 Glenn Gudino M.D. [id number] EGFR 28 mL/min/1.73 m2 Low >=60 [facility] Comment on above: Order Comment: [facility] has implemented the eGFR calculation approach that does not have a coefficient for race that conforms to the NKF-ASN Task Force Recommendations. Result Comment: Joi mated GFR was calculated using the 2020 CKD-EPI creatinine equation. Performed By: #### 4 6449 ####[facility] [address] [place], [place] [id number] Glenn Gudino M.D. [id number] Glucose [Mass/Vol] 157 mg/dL High 65-99 [facility] Comment on above: Order Comment: [facility] has implemented the eGFR calculation approach that does not have a coefficient for race that conforms to the NKF-ASN Task Force Recommendations. Performed By: #### 4 6449 ####[facility] [address] [place], [place] [address] Glenn Gudino M.D. [id number] HCO3 (Bld) [Moles/Vol] 26 mmol/L Normal 21-32 [facility] Comment on above: Order Comment: [facility] has implemented the eGFR calculation approach that does not have a coefficient for race that conforms to the NKF-ASN Task Force Recommendations. Performed By: #### 4 6449 ####[facility] [address] [place] [address] Glenn Gudino M.D. [id number] Phosphate [Mass/Vol] 2.3 mg/dL Low 2.8-4.1 [facility] Comment on above: Order Comment: [facility] has implemented the eGFR calculation approach that does not have a coefficient for race that conforms to the NKF-ASN Task Force Recommendations. Performed By: #### 4 6449 ####[facility] [address] [place] [address] 36878 Glenn Gudino M.D. [id number] Potassium [Moles/Vol] 4.7 mmol/L Normal 3.5-5.1 [facility] Comment on above: Order Comment: [facility] has implemented the eGFR calculation approach that does not have a coefficient for race that conforms to the NKF-ASN Task Force Recommendations. Performed By: #### 4 6449 ####[facility] [address] [place] [address] 21890 Glenn Gudino M.D. [id number] Sodium [Moles/Vol] 130 mmol/L Low 135-145 [facility] Comment on above: Order Comment: [facility] has implemented the eGFR calculation approach that does not have a coefficient for race that conforms to the NKF-ASN Task Force Recommendations. Performed By: #### 4 6449 ####[facility] [address] [place] [address] 07999 Glenn Gudino M.D. [id number] Urea nitrogen [Mass/Vol] 23 mg/dL Normal 8-25 [facility] Comment on above: Order Comment: [facility] has implemented the eGFR calculation approach that does not have a coefficient for race that conforms to the NKF-ASN Task Force Recommendations. Performed By: #### 4 6449 ####[facility] [address] [place] [address] 31834 Glenn Gudino M.D. [id number] Urea nitrogen/Creatinine [Mass ratio] 11.6 mg/mg Normal 10.0-20.0 [facility] Comment on above: Order Comment: [facility] has implemented the eGFR calculation approach that does not have a coefficient for race that conforms to the NKF-ASN Task Force Recommendations. Performed By: #### 4 6449 ####[facility] [address] [place] [address] 41264 Glenn Gudino M.D. [id number] XR CHEST PA/APon 02-02-2024 XR CHEST PA/AP Normal [facility] Comment on above: Order Comment: Injur y/Trauma or Illness?:Illness/OtherHow long have you had these symptoms (acute/chronic)?:AcuteReason for exam?:chest tube palcementHistory of cancer?:uSurgeries, chemotherapy, or radiation?:uType of Exam?:UnknownAdditional signs and symptoms?:pneumothorax CALCIUM, IONIZEDon CALCIUM IONIZED 4.4 mg/dL Low 4.5-5.3 [facility] Comment on above: Order Comment: Serum , non-CRRT source. Performed By: #### 4 5190 ####[facility] [address] [place] [address] Glenn Gudino M.D. [id number] CBCon 02-01-2024 AUTO NRBC 0.0 % Normal [facility] Comment on above: Performed By: #### 4 [id number] ####[facility] [address] [place] [address] Glenn Gudino M.D. [id number] AUTO NRBC ABS COUNT 0.00 K/mcL Normal 0.00-0.00 [facility] Comment on above: Performed By: #### 4 [id number] ####[facility] [address] [place] [address] Glenn Gudino M.D. [id number] Erythrocyte distribution width (RBC) [Ratio] 19.1 % High 11.6-14.8 [facility] Comment on above: Performed By: #### 4 [id number] ####[facility] [address] [place], [place] [address] Glenn Gudino M.D. [id number] Hematocrit (Bld) [Volume fraction] 25.8 % Low 36.0-46.0 [facility] Comment on above: Performed By: #### 4 [id number] ####[facility] [address] [place], [place] [address] Glenn Gudino M.D. [id number] Hemoglobin (Bld) [Mass/Vol] 8.4 g/dL Low 12.0-16.0 [facility] Comment on above: Performed By: #### 4 [id number] ####[facility] [address] [place], [place] [address]Karma Gudino M.D. [id number] MCH (RBC) [Entitic mass] 28.7 pg Normal 26.0-34.0 [facility] Comment on above: Performed By: #### 4 [id number] ####[facility] [address] [place], [place] [address] Glenn Gudino M.D. [id number] MCV (RBC) [Entitic vol] 88.1 fL Normal 80.0-100.0 [facility] Comment on above: Performed By: #### 4 [id number] ####[facility] [address] [place] [address] Glenn Gudino M.D. [id number] MEAN CORPUSCULAR HEMOGLOBIN CONC 32.6 g/dL Normal 31.0-37.0 [facility] Comment on above: Performed By: #### 4 [id number] ####[facility] [address] [place] [address] Glenn Gudino M.D. [id number] Platelet mean volume (Bld) [Entitic vol] 10.2 fL Normal 9.4-12.4 [facility] Comment on above: Performed By: #### 4 [id number] ####[facility] [address] [place], [place] [address] Glenn Gudino M.D. [id number] Platelets (Bld) [#/Vol] 109 10*3/uL Low 150-400 [facility] Comment on above: Performed By: #### 4 [id number] ####[facility] [address] [place], [place] [address] Glenn Gudino M.D. [id number] RBC (Bld) [#/Vol] 2.93 10*6/uL Low 4.00-5.20 [facility] Comment on above: Performed By: #### 4 [id number] ####[facility] [address] [place], [place] [address] Glenn Gudino M.D. [id number] WBC (Bld) [#/Vol] 10.44 10*3/uL Normal 4.50-11.00 [facility] Comment on above: Performed By: #### 4 [id number] ####[facility] [address] [place] [address] Glenn Gudino M.D. [id number] H AND Ney 02-01-2024 H AND P Normal [facility] MAGNESIUM LEVELon 02-01-2024 Magnesium [Mass/Vol] 2.3 mg/dL Normal 1.6-2.4 [facility] Comment on above: Performed By: #### 4 6109 ####[facility] [address] [place] [address] Glenn Gudino M.D. [id number] POC GLUCOSE - [facility] 024 Glucose [Mass/Vol] 151 mg/dL High 65-[address] [place] [address] Comment on above: Performed By: #### 4 6932 ####[facility] [address] [place] [address] [id number] [facility] Glucose [Mass/Vol] 92 mg/dL Normal 65-[address] [place] [address] Comment on above: Performed By: #### 4 6932 ####[facility] [address] [place] [address] [id number] [facility] Glucose [Mass/Vol] 58 mg/dL Low 65-[address] [place] [address] Comment on above: Performed By: #### 4 6932 ####[facility] [address] [place] [address] [id number] [facility] Glucose [Mass/Vol] 97 mg/dL Normal -[address] [place] [address] Comment on above: Performed By: #### 4 6949 ####[facility] [address] [place] [address] [id number] [facility] Glucose [Mass/Vol] 62 mg/dL Low 65-99 [facility] Comment on above: Performed By: #### 4 6919 ####[facility] [address] [place] [address] [id number] [facility] Glucose [Mass/Vol] 110 mg/dL High [address] [place] [address] Comment on above: Performed By: #### 4 6932 ####[facility] [address] [place] [address] [id number] [facility] Glucose [Mass/Vol] 117 mg/dL [address] Comment on above: Performed By: #### 4 6932 ####[facility] [address] [place] [address] [id number] [facility] Glucose [Mass/Vol] 166 mg/dL [address] Comment on above: Performed By: #### 4 6932 ####[facility] [address] [place] [address] [id number] [facility] Glucose [Mass/Vol] 150 mg/dL [address] Comment on above: Performed By: #### 4 6932 ####[facility] [address] [place] [address] [id number] [facility] RENAL FUNCTION PANEL 01-31 Albumin [Mass/Vol] 1.8 g/dL Low 3.2-5.2 [facility] Comment on above: Order Comment: [facility] has implemented the eGFR calculation approach that does not have a coefficient for race that conforms to the NKF-ASN Task Force Recommendations. Performed By: #### 4 6449 ####[facility] [address] [place] [address] Glenn Gudino M.D. [id number] Anion gap [Moles/Vol] 11 mmol/L Normal 10-20 [facility] Comment on above: Order Comment: [facility] has implemented the eGFR calculation approach that does not have a coefficient for race that conforms to the NKF-ASN Task Force Recommendations. Performed By: #### 4 6449 ####[facility] [address] [place] [address] 29855 Glenn Gudino M.D. [id number] Calcium [Mass/Vol] 7.3 mg/dL Low 8.4-10.2 [facility] Comment on above: Order Comment: [facility] has implemented the eGFR calculation approach that does not have a coefficient for race that conforms to the NKF-ASN Task Force Recommendations. Performed By: #### 4 6449 ####[facility] [address] [place], [place] [address] Glenn Gudino M.D. [id number] Chloride [Moles/Vol] 100 mmol/L Normal 98-108 [facility] Comment on above: Order Comment: [facility] has implemented the eGFR calculation approach that does not have a coefficient for race that conforms to the NKF-ASN Task Force Recommendations. Performed By: #### 4 6449 ####[facility] [address] [place], [place] [address] Glenn Gudino M.D. [id number] Creatinine [Mass/Vol] 2.21 mg/dL High 0.60-1.10 [facility] Comment on above: Order Comment: [facility] has implemented the eGFR calculation approach that does not have a coefficient for race that conforms to the NKF-ASN Task Force Recommendations. Performed By: #### 4 6449 ####[facility] [address] [place] [address] 62[address] Glenn Gudino M.D. [id number] EGFR 25 mL/min/1.73 m2 Low >=60 [facility] Comment on above: Order Comment: [facility] has implemented the eGFR calculation approach that does not have a coefficient for race that conforms to the NKF-ASN Task Force Recommendations. Result Comment: Joi mated GFR was calculated using the 2020 CKD-EPI creatinine equation. Performed By: #### 4 6449 ####[facility] [address] [place], [place] [address] Glenn Gudino M.D. [id number] Glucose [Mass/Vol] 185 mg/dL High 65-99 [facility] Comment on above: Order Comment: [facility] has implemented the eGFR calculation approach that does not have a coefficient for race that conforms to the NKF-ASN Task Force Recommendations. Performed By: #### 4 6449 ####[facility] [address] [place], [place] [address] Glenn Gudino M.D. [id number] HCO3 (Bld) [Moles/Vol] 27 mmol/L Normal 21-32 [facility] Comment on above: Order Comment: [facility] has implemented the eGFR calculation approach that does not have a coefficient for race that conforms to the NKF-ASN Task Force Recommendations. Performed By: #### 4 6449 ####[facility] [address] [place], [place] [address] Glenn Gudino M.D. [id number] Phosphate [Mass/Vol] 2.7 mg/dL Low 2.8-4.1 [facility] Comment on above: Order Comment: [facility] has implemented the eGFR calculation approach that does not have a coefficient for race that conforms to the NKF-ASN Task Force Recommendations. Performed By: #### 4 6449 ####[facility] [address] [place], [place] [address] Glenn Gudino M.D. [id number] Potassium [Moles/Vol] 5.3 mmol/L High 3.5-5.1 [facility] Comment on above: Order Comment: [facility] has implemented the eGFR calculation approach that does not have a coefficient for race that conforms to the NKF-ASN Task Force Recommendations. Result Comment: Slig htly Hemolyzed Performed By: #### 4 6449 ####[facility] [address] [place] [address]85[address] Glenn Gudino M.D. [id number] Sodium [Moles/Vol] 133 mmol/L Low 135-145 [facility] Comment on above: Order Comment: [facility] has implemented the eGFR calculation approach that does not have a coefficient for race that conforms to the NKF-ASN Task Force Recommendations. Performed By: #### 4 6449 ####[facility] [address] [place] [address] 02647 Glenn Gudino M.D. [id number] Urea nitrogen [Mass/Vol] 33 mg/dL High 8-25 [facility] Comment on above: Order Comment: [facility] has implemented the eGFR calculation approach that does not have a coefficient for race that conforms to the NKF-ASN Task Force Recommendations. Performed By: #### 4 6449 ####[facility] [address] [place] [address] 91927 Glenn Gudino M.D. [id number] Urea nitrogen/Creatinine [Mass ratio] 14.9 mg/mg Normal 10.0-20.0 [facility] Comment on above: Order Comment: [facility] has implemented the eGFR calculation approach that does not have a coefficient for race that conforms to the NKF-ASN Task Force Recommendations. Performed By: #### 4 6449 ####[facility] [address] [place] [address] 69172 Glenn Gudino M.D. [id number] XR CHEST PA/APon 02-01-2024 XR CHEST PA/AP Normal [facility] Comment on above: Order Comment: Injur [...] ANTIBODY IDENTIFICATION-INCo n 01-31-2024 ANTIBODY IDENTIFICATION-INC Normal [facility] Comment on above: Performed By: #### 4 6427_Inconclusive ####[facility] [address] [place] [address] Nurys Oneill MD [id number] RMHTS APTT HEPARIN COVERAGEon aPTT Coag (Bld) [Time] 40 s High 23-34 [facility] Comment on above: Order Comment: Thera peutic range for APTT's is 68 - 104 seconds Result Comment: Resu lts checked. Performed By: #### 4 6848 ####[facility] [address] [place] [address] Glenn Gudino M.D. [id number] aPTT Coag (Bld) [Time] 65 s High 23-34 [facility] Comment on above: Order Comment: Thera peutic range for APTT's is 68 - 104 secondsResults checked. Performed By: #### 4 6848 ####[facility] [address] [place] [address] Glenn Gudino M.D. [id number] BASIC METABOLIC PANELon Anion gap [Moles/Vol] 12 mmol/L Normal 10-20 [facility] Comment on above: Order Comment: [facility] has implemented the eGFR calculation approach that does not have a coefficient for race that conforms to the NKF-ASN Task Force Recommendations. Performed By: #### 4 6124 ####[facility] [address] [place] [address] Glenn Gudino M.D. [id number] Calcium [Mass/Vol] 8.0 mg/dL Low 8.4-10.2 [facility] Comment on above: Order Comment: [facility] has implemented the eGFR calculation approach that does not have a coefficient for race that conforms to the NKF-ASN Task Force Recommendations. Performed By: #### 4 6124 ####[facility] [address] [place] [address] 404[address] Glenn Gudino M.D. [id number] Chloride [Moles/Vol] 99 mmol/L Normal 98-108 [facility] Comment on above: Order Comment: [facility] has implemented the eGFR calculation approach that does not have a coefficient for race that conforms to the NKF-ASN Task Force Recommendations. Performed By: #### 4 6124 ####[facility] [address] [place] [address] 648[address] Glenn Gudino M.D. [id number] Creatinine [Mass/Vol] 1.47 mg/dL High 0.60-1.10 [facility] Comment on above: Order Comment: [facility] has implemented the eGFR calculation approach that does not have a coefficient for race that conforms to the NKF-ASN Task Force Recommendations. Performed By: #### 4 6124 ####[facility] [address] [place] [address] 52661 Glenn Gudino M.D. [id number] EGFR 40 mL/min/1.73 m2 Low >=60 [facility] Comment on above: Order Comment: [facility] has implemented the eGFR calculation approach that does not have a coefficient for race that conforms to the NKF-ASN Task Force Recommendations. Result Comment: Joi mated GFR was calculated using the 2020 CKD-EPI creatinine equation. Performed By: #### 4 6124 ####[facility] [address] [place] [address] 98681 Glenn Gudino M.D. [id number] Glucose [Mass/Vol] 165 mg/dL High 65-99 [facility] Comment on above: Order Comment: [facility] has implemented the eGFR calculation approach that does not have a coefficient for race that conforms to the NKF-ASN Task Force Recommendations. Performed By: #### 4 6124 ####[facility] [address] [place] [address] 09512 Glenn Gudino M.D. [id number] HCO3 (Bld) [Moles/Vol] 28 mmol/L Normal 21-32 [facility] Comment on above: Order Comment: [facility] has implemented the eGFR calculation approach that does not have a coefficient for race that conforms to the NKF-ASN Task Force Recommendations. Performed By: #### 4 6124 ####[facility] [address] [place], [place] [address] Glenn Gudino M.D. [id number] Potassium [Moles/Vol] 4.5 mmol/L Normal 3.5-5.1 [facility] Comment on above: Order Comment: [facility] has implemented the eGFR calculation approach that does not have a coefficient for race that conforms to the NKF-ASN Task Force Recommendations. Performed By: #### 4 6124 ####[facility] [address] [place], [place] [address] Glenn Gudino M.D. [id number] Sodium [Moles/Vol] 134 mmol/L Low 135-145 [facility] Comment on above: Order Comment: [facility] has implemented the eGFR calculation approach that does not have a coefficient for race that conforms to the NKF-ASN Task Force Recommendations. Performed By: #### 4 6124 ####[facility] [address] [place], [place] [address] Glenn Gudino M.D. [id number] Urea nitrogen [Mass/Vol] 23 mg/dL Normal 8-25 [facility] Comment on above: Order Comment: [facility] has implemented the eGFR calculation approach that does not have a coefficient for race that conforms to the NKF-ASN Task Force Recommendations. Performed By: #### 4 6124 ####[facility] [address] [place] [address] 64692 Glenn Gudino M.D. [id number] Urea nitrogen/Creatinine [Mass ratio] 15.6 mg/mg Normal 10.0-20.0 [facility] Comment on above: Order Comment: [facility] has implemented the eGFR calculation approach that does not have a coefficient for race that conforms to the NKF-ASN Task Force Recommendations. Performed By: #### 4 6124 ####[facility] [address] [place] [address] Glenn Gudino M.D. [id number] CALCIUM, IONIZEDon CALCIUM IONIZED 4.9 mg/dL Normal 4.5-5.3 [facility] Comment on above: Performed By: #### 4 5190 ####[facility] [address] [place] [address] Glenn Gudino M.D. [id number] CALCIUM IONIZED 4.5 mg/dL Normal 4.5-5.3 [facility] Comment on above: Order Comment: Serum , non-CRRT source. Performed By: #### 4 5190 ####[facility] [address] [place] [address] Glenn Gudino M.D. [id number] CBCon 01-31-2024 AUTO NRBC 0.0 % Normal [facility] Comment on above: Performed By: #### 4 [id number] ####[facility] [address] [place] [address] 08669 Glenn Gudino M.D. [id number] AUTO NRBC ABS COUNT 0.00 K/mcL Normal 0.00-0.00 [facility] Comment on above: Performed By: #### 4 [id number] ####[facility] [address] [place], [place] [address] Glenn Gudino M.D. [id number] Erythrocyte distribution width (RBC) [Ratio] 18.7 % High 11.6-14.8 [facility] Comment on above: Performed By: #### 4 [id number] ####[facility] [address] [place], [place] [address] Glenn Gudino M.D. [id number] Hematocrit (Bld) [Volume fraction] 26.9 % Low 36.0-46.0 [facility] Comment on above: Result Comment: Resu lts checked Performed By: #### 4 [id number] ####[facility] [address] [place] [address] Glenn Gudino M.D. [id number] Hemoglobin (Bld) [Mass/Vol] 9.0 g/dL Low 12.0-16.0 [facility] Comment on above: Result Comment: Resu lts checked Performed By: #### 4 [id number] ####[facility] [address] [place] [address] Glenn Gudino M.D. [id number] MCH (RBC) [Entitic mass] 28.6 pg Normal 26.0-34.0 [facility] Comment on above: Performed By: #### 4 [id number] ####[facility] [address] [place], [place] [address] Glenn Gudino M.D. [id number] MCV (RBC) [Entitic vol] 85.4 fL Normal 80.0-100.0 [facility] Comment on above: Result Comment: Resu lts checked Performed By: #### 4 [id number] ####[facility] [address] [place], [place] [id number] Glenn Gudino M.D. [id number] MEAN CORPUSCULAR HEMOGLOBIN CONC 33.5 g/dL Normal 31.0-37.0 [facility] Comment on above: Performed By: #### 4 [id number] ####[facility] [address] [place], [place] [address] Glenn Gudino M.D. [id number] Platelet mean volume (Bld) [Entitic vol] 9.9 fL Normal 9.4-12.4 [facility] Comment on above: Performed By: #### 4 [id number] ####[facility] [address] [place] [address] 04352 Glenn Gudino M.D. [id number] Platelets (Bld) [#/Vol] 103 10*3/uL Low 150-400 [facility] Comment on above: Performed By: #### 4 [id number] ####[facility] [address] [place] [address] Glenn Gudino M.D. [id number] RBC (Bld) [#/Vol] 3.15 10*6/uL Low 4.00-5.20 [facility] Comment on above: Performed By: #### 4 [id number] ####[facility] [address] [place] [address] Glenn Gudino M.D. [id number] WBC (Bld) [#/Vol] 11.27 10*3/uL High 4.50-11.00 [facility] Comment on above: Performed By: #### 4 [id number] ####[facility] [address] [place], [place] [address] Glenn Gudino M.D. [id number] AUTO NRBC 0.0 % Normal [facility] Comment on above: Performed By: #### 4 [id number] ####[facility] [address] [place], [place] [address] Glenn Gudino M.D. [id number] AUTO NRBC ABS COUNT 0.00 K/mcL Normal 0.00-0.00 [facility] Comment on above: Performed By: #### 4 [id number] ####[facility] [address] [place] [address] 49642 Glenn Gudino M.D. [id number] Erythrocyte distribution width (RBC) [Ratio] 15.9 % High 11.6-14.8 [facility] Comment on above: Performed By: #### 4 [id number] ####[facility] [address] [place], [place] [address] Glenn Gudino M.D. [id number] Hematocrit (Bld) [Volume fraction] 19.9 % Low 36.0-46.0 [facility] Comment on above: Performed By: #### 4 [id number] ####[facility] [address] [place], [place] [address] Glenn Gudino M.D. [id number] Hemoglobin (Bld) [Mass/Vol] 6.4 g/dL Off scale low 12.0-16.0 [facility] Comment on above: Result Comment: Resu lts called and read back verified by:.[email or web address] [id number] Performed By: #### 4 [id number] ####[facility] [address] [place] [address] Glenn Gudino M.D. [id number] MCH (RBC) [Entitic mass] 30.2 pg Normal 26.0-34.0 [facility] Comment on above: Performed By: #### 4 [id number] ####[facility] [address] [place], [place] [address] Glenn Gudino M.D. [id number] MCV (RBC) [Entitic vol] 93.9 fL Normal 80.0-100.0 [facility] Comment on above: Performed By: #### 4 [id number] ####[facility] [address] [place], [place] [address] Glenn Gudino M.D. [id number] MEAN CORPUSCULAR HEMOGLOBIN CONC 32.2 g/dL Normal 31.0-37.0 [facility] Comment on above: Performed By: #### 4 [id number] ####[facility] [address] [place], [place] [address] Glenn Gudino M.D. [id number] Platelet mean volume (Bld) [Entitic vol] 10.7 fL Normal 9.4-12.4 [facility] Comment on above: Performed By: #### 4 [id number] ####[facility] [address] [place], [place] [address] Glenn Gudino M.D. [id number] Platelets (Bld) [#/Vol] 104 10*3/uL Low 150-400 [facility] Comment on above: Performed By: #### 4 [id number] ####[facility] [address] [place] [address] Glenn Gudino M.D. [id number] RBC (Bld) [#/Vol] 2.12 10*6/uL Low 4.00-5.20 [facility] Comment on above: Performed By: #### 4 [id number] ####[facility] [address] [place] [address] Glenn Gudino M.D. [id number] WBC (Bld) [#/Vol] 9.91 10*3/uL Normal 4.50-11.00 [facility] Comment on above: Performed By: #### 4 [id number] ####[facility] [address] [place], [place] [address] Glenn Gudino M.D. [id number] AUTO NRBC 0.0 % Normal [facility] Comment on above: Performed By: #### 4 [id number] ####[facility] [address] [place], [place] [address] Glenn Gudino M.D. [id number] AUTO NRBC ABS COUNT 0.00 K/mcL Normal 0.00-0.00 [facility] Comment on above: Performed By: #### 4 [id number] ####[facility] [address] [place], [place] [address] Glenn Gudino M.D. [id number] Erythrocyte distribution width (RBC) [Ratio] 16.0 % High 11.6-14.8 [facility] Comment on above: Performed By: #### 4 [id number] ####[facility] [address] [place], [place] [address] Glenn Gudino M.D. [id number] Hematocrit (Bld) [Volume fraction] 21.4 % Low 36.0-46.0 [facility] Comment on above: Performed By: #### 4 [id number] ####[facility] [address] [place] [address] Glenn Gudino M.D. [id number] Hemoglobin (Bld) [Mass/Vol] 6.9 g/dL Off scale low 12.0-16.0 [facility] Comment on above: Result Comment: Resu lts called and read back verified by:.[id number]. Performed By: #### 4 [id number] ####[facility] [address] [place] [address] Glenn Gudino M.D. [id number] MCH (RBC) [Entitic mass] 30.0 pg Normal 26.0-34.0 [facility] Comment on above: Performed By: #### 4 [id number] ####[facility] [address] [place], [place] [address] Glenn Gudino M.D. [id number] MCV (RBC) [Entitic vol] 93.0 fL Normal 80.0-100.0 [facility] Comment on above: Performed By: #### 4 [id number] ####[facility] [address] [place], [place] [address] Glenn Gudino M.D. [id number] MEAN CORPUSCULAR HEMOGLOBIN CONC 32.2 g/dL Normal 31.0-37.0 [facility] Comment on above: Performed By: #### 4 5218 ####[facility] [address] [place], [place] [address] Glenn Gudino M.D. [id number] Platelet mean volume (Bld) [Entitic vol] 10.4 fL Normal 9.4-12.4 [facility] Comment on above: Performed By: #### 4 [id number] ####[facility] [address] [place] [address] 27693 Glenn Gudino M.D. [id number] Platelets (Bld) [#/Vol] 116 10*3/uL Low 150-400 [facility] Comment on above: Result Comment: Resu lts checked Performed By: #### 4 [id number] ####[facility] [address] [place] [address] 20799 Glenn Gudino M.D. [id number] RBC (Bld) [#/Vol] 2.30 10*6/uL Low 4.00-5.20 [facility] Comment on above: Performed By: #### 4 [id number] ####[facility] [address] [place] [address] Glenn Gudino M.D. [id number] WBC (Bld) [#/Vol] 8.81 10*3/uL Normal 4.50-11.00 [facility] Comment on above: Performed By: #### 4 [id number] ####[facility] [address] [place] [address] 56681 Glenn Gudino M.D. [id number] CLOSTRIDIOIDES DIFFICILE MENG TINGon 01-31-2024 CLOSTRIDIOIDES DIFFICILE TESTING TOXIGENIC C. DIFFICILE BY PCR DETECTED Toxigenic C. difficile detected in stool. Correlation of test results with patient clinical symptoms is suggested. Young children <3 years of age have an asymptomatic carriage rate as high as 40%. Abnormal [facility] Comment on above: Performed By: #### 4 8543 ####[facility] [address] [place] [address] 46477 Glenn Gudino M.D. [id number] CONSULTon 01-31-2024 CONSULT Normal [facility] CV IR DIALYSIS CATHETER INSE RTION TUNNELEDon 01-31-2024 CV IR DIALYSIS CATHETER INSERTION TUNNELED Normal [facility] MAGNESIUM LEVELon 01-31-2024 Magnesium [Mass/Vol] 1.9 mg/dL Normal 1.6-2.4 [facility] Comment on above: Performed By: #### 4 6109 ####[facility] [address] [place] [address] Glenn Gudino M.D. [id number] Magnesium [Mass/Vol] 1.8 mg/dL Normal 1.6-2.4 [facility] Comment on above: Performed By: #### 4 6109 ####[facility] [address] [place] [address] Glenn Gudino M.D. [id number] Magnesium [Mass/Vol] 1.8 mg/dL Normal 1.6-2.4 [facility] Comment on above: Performed By: #### 4 6109 ####[facility] [address] [place] [address] Glenn Gudino M.D. [id number] PHOSPHORUSon 01-31-2024 Phosphate [Mass/Vol] 1.9 mg/dL Low 2.8-4.1 [facility] Comment on above: Performed By: #### 4 6299 ####[facility] [address] [place] [address] Glenn Gudino M.D. [id number] POC GLUCOSE - [facility] 024 Glucose [Mass/Vol] 158 mg/dL High 65-99 [facility] Comment on above: Performed By: #### 4 7891 ####[facility] [address] [place] [address] [id number] [facility] Glucose [Mass/Vol] 113 mg/dL High 65-99 [facility] Comment on above: Performed By: #### 4 8871 ####[facility] [address] [place] [address] [id number] [facility] Glucose [Mass/Vol] 97 mg/dL Normal 65-99 [facility] Comment on above: Performed By: #### 4 6932 ####[facility] [address] [place] [address] [id number] [facility] Glucose [Mass/Vol] 134 mg/dL High 65-99 [facility] Comment on above: Performed By: #### 4 6932 ####[facility] [address] [place] [address] [id number] [facility] Glucose [Mass/Vol] 68 mg/dL Normal 65-99 [facility] Comment on above: Performed By: #### 4 6932 ####[facility] [address] [place] [address] [id number] [facility] Glucose [Mass/Vol] 157 mg/dL High 65-99 [facility] Comment on above: Performed By: #### 4 6932 ####[facility] [address] [place] [address] [id number] [facility] Glucose [Mass/Vol] 117 mg/dL High 65-99 [facility] Comment on above: Performed By: #### 4 6932 ####[facility] [address] [place] [address] [id number] [facility] RENAL FUNCTION PANELon 01-30 Albumin [Mass/Vol] 2.4 g/dL Low 3.2-5.2 [facility] Comment on above: Order Comment: [facility] has implemented the eGFR calculation approach that does not have a coefficient for race that conforms to the NKF-ASN Task Force Recommendations. Performed By: #### 4 6449 ####[facility] [address] [place] [address] Glenn Gudino M.D. [id number] Anion gap [Moles/Vol] 11 mmol/L Normal 10-20 [facility] Comment on above: Order Comment: [facility] has implemented the eGFR calculation approach that does not have a coefficient for race that conforms to the NKF-ASN Task Force Recommendations. Performed By: #### 4 6449 ####[facility] [address] [place] [address] 19457 Glenn Gudino M.D. [id number] Calcium [Mass/Vol] 7.2 mg/dL Low 8.4-10.2 [facility] Comment on above: Order Comment: [facility] has implemented the eGFR calculation approach that does not have a coefficient for race that conforms to the NKF-ASN Task Force Recommendations. Performed By: #### 4 6449 ####[facility] [address] [place] [address] 89143 Glenn Gudino M.D. [id number] Chloride [Moles/Vol] 100 mmol/L Normal 98-108 [facility] Comment on above: Order Comment: [facility] has implemented the eGFR calculation approach that does not have a coefficient for race that conforms to the NKF-ASN Task Force Recommendations. Performed By: #### 4 6449 ####[facility] [address] [place] [address]60[address] Glenn Gudino M.D. [id number] Creatinine [Mass/Vol] 1.17 mg/dL Normal 0.60-1.10 [facility] Comment on above: Order Comment: [facility] has implemented the eGFR calculation approach that does not have a coefficient for race that conforms to the NKF-ASN Task Force Recommendations. Performed By: #### 4 6449 ####[facility] [address] [place] [address] 50024 Glenn Gudino M.D. [id number] EGFR 53 mL/min/1.73 m2 Low >=60 [facility] Comment on above: Order Comment: [facility] has implemented the eGFR calculation approach that does not have a coefficient for race that conforms to the NKF-ASN Task Force Recommendations. Result Comment: Joi mated GFR was calculated using the 2020 CKD-EPI creatinine equation. Performed By: #### 4 6449 ####[facility] [address] [place] [address]26 Glenn Gudino M.D. [id number] Glucose [Mass/Vol] 160 mg/dL High 65-99 [facility] Comment on above: Order Comment: [facility] has implemented the eGFR calculation approach that does not have a coefficient for race that conforms to the NKF-ASN Task Force Recommendations. Performed By: #### 4 6449 ####[facility] [address] [place], [place] [address] Glenn Gudino M.D. [id number] HCO3 (Bld) [Moles/Vol] 30 mmol/L Normal 21-32 [facility] Comment on above: Order Comment: [facility] has implemented the eGFR calculation approach that does not have a coefficient for race that conforms to the NKF-ASN Task Force Recommendations. Performed By: #### 4 6449 ####[facility] [address] [place], [place] [address] Glenn Gudino M.D. [id number] Phosphate [Mass/Vol] 1.4 mg/dL Low 2.8-4.1 [facility] Comment on above: Order Comment: [facility] has implemented the eGFR calculation approach that does not have a coefficient for race that conforms to the NKF-ASN Task Force Recommendations. Performed By: #### 4 6449 ####[facility] [address] [place] [address]4714 Glenn Gudino M.D. [id number] Potassium [Moles/Vol] 4.1 mmol/L Normal 3.5-5.1 [facility] Comment on above: Order Comment: [facility] has implemented the eGFR calculation approach that does not have a coefficient for race that conforms to the NKF-ASN Task Force Recommendations. Performed By: #### 4 6449 ####[facility] [address] [place] [address]30 Glenn Gudino M.D. [id number] Sodium [Moles/Vol] 137 mmol/L Normal 135-145 [facility] Comment on above: Order Comment: [facility] has implemented the eGFR calculation approach that does not have a coefficient for race that conforms to the NKF-ASN Task Force Recommendations. Performed By: #### 4 6449 ####[facility] [address] [place] [address] Glenn Gudino M.D. [id number] Urea nitrogen [Mass/Vol] 17 mg/dL Normal 8-25 [facility] Comment on above: Order Comment: [facility] has implemented the eGFR calculation approach that does not have a coefficient for race that conforms to the NKF-ASN Task Force Recommendations. Performed By: #### 4 6449 ####[facility] [address] [place] [address] Glenn Gudino M.D. [id number] Urea nitrogen/Creatinine [Mass ratio] 14.5 mg/mg Normal 10.0-20.0 [facility] Comment on above: Order Comment: [facility] has implemented the eGFR calculation approach that does not have a coefficient for race that conforms to the NKF-ASN Task Force Recommendations. Performed By: #### 4 6449 ####[facility] [address] [place] [address] Glenn Gudino M.D. [id number] TYPE AND SCREENon 01-31-2024 TYPE AND SCREEN ABORH: O Positive AB SCREEN: Positive EXPIRATION DATE: 02/03/2024 23:59 EST Normal [facility] Comment on above: Performed By: #### 4 6619 ####[facility] [address] [place] [address] Nurys Oneill MD [id number] [facility] XR CHEST PA/APon 01-31-2024 XR CHEST PA/AP Normal [facility] Comment on above: Order Comment: Injur y/Trauma or Illness?:Illness/OtherHow long have you had these symptoms (acute/chronic)?:AcuteReason for exam?:chest tube palcement, pneumothoraxHistory of cancer?:uSurgeries, chemotherapy, or radiation?:uType of Exam?:Subsequent/Follow-upAdditional signs and symptoms?:chest tube palcement, pneumothorax APTT HEPARIN COVERAGEon 09 aPTT Coag (Bld) [Time] 88 s High 23-34 [facility] Comment on above: Order Comment: Thera peutic range for APTT's is 68 - 104 seconds Performed By: #### 4 6812 ####[facility] [address] [place] [address] Glenn Gudino M.D. [id number] CALCIUM, IONIZEDon CALCIUM IONIZED 4.4 mg/dL Low 4.5-5.3 [facility] Comment on above: Order Comment: Serum , non-CRRT source. Performed By: #### 4 5190 ####[facility] [address] [place] [address] Glenn Gudino M.D. [id number] CBCon 01-30-2024 AUTO NRBC 0.0 % Normal [facility] Comment on above: Performed By: #### 4 [id number] ####[facility] [address] [place], [place] [address] Glenn Gudino M.D. [id number] AUTO NRBC ABS COUNT 0.00 K/mcL Normal 0.00-0.00 [facility] Comment on above: Performed By: #### 4 [id number] ####[facility] [address] [place], [place] [address] Glenn Gudino M.D. [id number] Erythrocyte distribution width (RBC) [Ratio] 16.0 % High 11.6-14.8 [facility] Comment on above: Performed By: #### 4 5218 ####[facility] [address] [place], [place] [address] Glenn Gudino M.D. [id number] Hematocrit (Bld) [Volume fraction] 23.2 % Low 36.0-46.0 [facility] Comment on above: Performed By: #### 4 5218 ####[facility] [address] [place] [address] Glenn Gudino M.D. [id number] Hemoglobin (Bld) [Mass/Vol] 7.5 g/dL Low 12.0-16.0 [facility] Comment on above: Performed By: #### 4 5218 ####[facility] [address] [place] [address] Glenn Gudino M.D. [id number] MCH (RBC) [Entitic mass] 29.5 pg Normal 26.0-34.0 [facility] Comment on above: Performed By: #### 4 [id number] ####[facility] [address] [place] [address] Glenn Gudino M.D. [id number] MCV (RBC) [Entitic vol] 91.3 fL Normal 80.0-100.0 [facility] Comment on above: Performed By: #### 4 5218 ####[facility] [address] [place] [address] Glenn Gudino M.D. [id number] MEAN CORPUSCULAR HEMOGLOBIN CONC 32.3 g/dL Normal 31.0-37.0 [facility] Comment on above: Performed By: #### 4 5218 ####[facility] [address] [place], [place] [address] Glenn Gudino M.D. [id number] Platelet mean volume (Bld) [Entitic vol] 10.2 fL Normal 9.4-12.4 [facility] Comment on above: Performed By: #### 4 5218 ####[facility] [address] [place], [place] [address] Glenn Gudino M.D. [id number] Platelets (Bld) [#/Vol] 106 10*3/uL Low 150-400 [facility] Comment on above: Result Comment: Resu lts checked Performed By: #### 4 [id number] ####[facility] [address] [place] [address] 71888 Glenn Gudino M.D. [id number] RBC (Bld) [#/Vol] 2.54 10*6/uL Low 4.00-5.20 [facility] Comment on above: Performed By: #### 4 5218 ####[facility] [address] [place], [place] [address] Glenn Gudino M.D. [id number] WBC (Bld) [#/Vol] 11.63 10*3/uL High 4.50-11.00 [facility] Comment on above: Performed By: #### 4 5218 ####[facility] [address] [place], [place] [address] Glenn Gudino M.D. [id number] HEMOGLOBIN AND HEMATOCRITon 01-30-2024 Hematocrit (Bld) [Volume fraction] 26.4 % Low 36.0-46.0 [facility] Comment on above: Performed By: #### 4 6909 ####[facility] [address] [place], [place] [address] Glenn Gudino M.D. [id number] Hemoglobin (Bld) [Mass/Vol] 8.8 g/dL Low 12.0-16.0 [facility] Comment on above: Performed By: #### 4 6909 ####[facility] [address] [place] [address] 03632 Glenn Gudino M.D. [id number] MAGNESIUM LEVELon 01-30-2024 Magnesium [Mass/Vol] 2.0 mg/dL Normal 1.6-2.4 [facility] Comment on above: Performed By: #### 4 6109 ####[facility] [address] [place] [address] Glenn Gudino M.D. [id number] [facility] Glucose [Mass/Vol] 165 mg/dL High [address] [place] [address] Comment on above: Performed By: #### 4 6932 ####[facility] [address] [place] [address] [id number] [facility] Glucose [Mass/Vol] 137 mg/dL High [address] [place] [address] Comment on above: Performed By: #### 4 6973 ####[facility] [address] [place] [address] [id number] [facility] Glucose [Mass/Vol] 129 mg/dL [address] Comment on above: Performed By: #### 4 6990 ####[facility] [address] [place] [address] [id number] [facility] Glucose [Mass/Vol] 159 mg/dL [address] Comment on above: Performed By: #### 4 6932 ####[facility] [address] [place] [address] [id number] [facility] Glucose [Mass/Vol] 151 mg/dL [address] Comment on above: Performed By: #### 4 6978 ####[facility] [address] [place] [address] [id number] [facility] Glucose [Mass/Vol] 157 mg/dL [address] Comment on above: Performed By: #### 4 2587 ####[facility] [address] [place] [address] [id number] [facility] RENAL FUNCTION PANELon 01-29 Albumin [Mass/Vol] 2.1 g/dL Low 3.2-5.2 [facility] Comment on above: Order Comment: [facility] has implemented the eGFR calculation approach that does not have a coefficient for race that conforms to the NKF-ASN Task Force Recommendations. Performed By: #### 4 [id number] ####[facility] [address] [place] [address] 16840 Glenn Gudino M.D. [id number] Anion gap [Moles/Vol] 11 mmol/L Normal 10-20 [facility] Comment on above: Order Comment: [facility] has implemented the eGFR calculation approach that does not have a coefficient for race that conforms to the NKF-ASN Task Force Recommendations. Performed By: #### 4 6449 ####[facility] [address] [place] [address] 91787 Glenn Gudino M.D. [id number] Calcium [Mass/Vol] 7.3 mg/dL Low 8.4-10.2 [facility] Comment on above: Order Comment: [facility] has implemented the eGFR calculation approach that does not have a coefficient for race that conforms to the NKF-ASN Task Force Recommendations. Performed By: #### 4 6449 ####[facility] [address] [place] [address] 06873 Glenn Gudino M.D. [id number] Chloride [Moles/Vol] 102 mmol/L Normal 98-108 [facility] Comment on above: Order Comment: [facility] has implemented the eGFR calculation approach that does not have a coefficient for race that conforms to the NKF-ASN Task Force Recommendations. Performed By: #### 4 6449 ####[facility] [address] [place] [address] 60349 Glenn Gudino M.D. [id number] Creatinine [Mass/Vol] 2.40 mg/dL High 0.60-1.10 [facility] Comment on above: Order Comment: [facility] has implemented the eGFR calculation approach that does not have a coefficient for race that conforms to the NKF-ASN Task Force Recommendations. Performed By: #### 4 6449 ####[facility] [address] [place] [address] 46232 Glenn Gudino M.D. [id number] EGFR 22 mL/min/1.73 m2 Low >=60 [facility] Comment on above: Order Comment: [facility] has implemented the eGFR calculation approach that does not have a coefficient for race that conforms to the NKF-ASN Task Force Recommendations. Result Comment: Joi mated GFR was calculated using the 2020 CKD-EPI creatinine equation. Performed By: #### 4 6449 ####[facility] [address] [place], [place] [address] Glenn Gudino M.D. [id number] Glucose [Mass/Vol] 139 mg/dL High 65-99 [facility] Comment on above: Order Comment: [facility] has implemented the eGFR calculation approach that does not have a coefficient for race that conforms to the NKF-ASN Task Force Recommendations. Performed By: #### 4 6449 ####[facility] [address] [place], [place] [address] Glenn Gudino M.D. [id number] HCO3 (Bld) [Moles/Vol] 28 mmol/L Normal 21-32 [facility] Comment on above: Order Comment: [facility] has implemented the eGFR calculation approach that does not have a coefficient for race that conforms to the NKF-ASN Task Force Recommendations. Performed By: #### 4 6449 ####[facility] [address] [place], [place] [address] Glenn Gudino M.D. [id number] Phosphate [Mass/Vol] 2.8 mg/dL Normal 2.8-4.1 [facility] Comment on above: Order Comment: [facility] has implemented the eGFR calculation approach that does not have a coefficient for race that conforms to the NKF-ASN Task Force Recommendations. Performed By: #### 4 6449 ####[facility] [address] [place] [address] 24342 Glenn Gudino M.D. [id number] Potassium [Moles/Vol] 5.1 mmol/L Normal 3.5-5.1 [facility] Comment on above: Order Comment: [facility] has implemented the eGFR calculation approach that does not have a coefficient for race that conforms to the NKF-ASN Task Force Recommendations. Result Comment: Slig htly Hemolyzed Performed By: #### 4 6449 ####[facility] [address] [place], [place] [address] Glenn Gudino M.D. [id number] Sodium [Moles/Vol] 136 mmol/L Normal 135-145 [facility] Comment on above: Order Comment: [facility] has implemented the eGFR calculation approach that does not have a coefficient for race that conforms to the NKF-ASN Task Force Recommendations. Performed By: #### 4 6449 ####[facility] [address] [place], [place] [address] Glenn Gudino M.D. [id number] Urea nitrogen [Mass/Vol] 36 mg/dL High 8-25 [facility] Comment on above: Order Comment: [facility] has implemented the eGFR calculation approach that does not have a coefficient for race that conforms to the NKF-ASN Task Force Recommendations. Performed By: #### 4 6449 ####[facility] [address] [place] [address] 59834 Glenn Gudino M.D. [id number] Urea nitrogen/Creatinine [Mass ratio] 15.0 mg/mg Normal 10.0-20.0 [facility] Comment on above: Order Comment: [facility] has implemented the eGFR calculation approach that does not have a coefficient for race that conforms to the NKF-ASN Task Force Recommendations. Performed By: #### 4 6449 ####[facility] [address] [place] [address] 14820 Glenn Gudino M.D. [id number] Albumin [Mass/Vol] 2.1 g/dL Low 3.2-5.2 [facility] Comment on above: Order Comment: [facility] has implemented the eGFR calculation approach that does not have a coefficient for race that conforms to the NKF-ASN Task Force Recommendations. Performed By: #### 4 6449 ####[facility] [address] [place] [address] 26394 Glenn Gudino M.D. [id number] Anion gap [Moles/Vol] 12 mmol/L Normal 10-20 [facility] Comment on above: Order Comment: [facility] has implemented the eGFR calculation approach that does not have a coefficient for race that conforms to the NKF-ASN Task Force Recommendations. Performed By: #### 4 6449 ####[facility] [address] [place], [place] [address] Glenn Gudino M.D. [id number] Calcium [Mass/Vol] 7.5 mg/dL Low 8.4-10.2 [facility] Comment on above: Order Comment: [facility] has implemented the eGFR calculation approach that does not have a coefficient for race that conforms to the NKF-ASN Task Force Recommendations. Performed By: #### 4 6449 ####[facility] [address] [place] [address] 80303 Glenn Gudino M.D. [id number] Chloride [Moles/Vol] 99 mmol/L Normal 98-108 [facility] Comment on above: Order Comment: [facility] has implemented the eGFR calculation approach that does not have a coefficient for race that conforms to the NKF-ASN Task Force Recommendations. Performed By: #### 4 6449 ####[facility] [address] [place] [address] 43265 Glenn Gudino M.D. [id number] Creatinine [Mass/Vol] 2.02 mg/dL High 0.60-1.10 [facility] Comment on above: Order Comment: [facility] has implemented the eGFR calculation approach that does not have a coefficient for race that conforms to the NKF-ASN Task Force Recommendations. Performed By: #### 4 6449 ####[facility] [address] [place] [address] 89829 Glenn Gudino M.D. [id number] EGFR 28 mL/min/1.73 m2 Low >=60 [facility] Comment on above: Order Comment: [facility] has implemented the eGFR calculation approach that does not have a coefficient for race that conforms to the NKF-ASN Task Force Recommendations. Result Comment: Joi mated GFR was calculated using the 2020 CKD-EPI creatinine equation. Performed By: #### 4 6449 ####[facility] [address] [place] [address] 23511 Glenn Gudino M.D. [id number] Glucose [Mass/Vol] 150 mg/dL High 65-99 [facility] Comment on above: Order Comment: [facility] has implemented the eGFR calculation approach that does not have a coefficient for race that conforms to the NKF-ASN Task Force Recommendations. Performed By: #### 4 6449 ####[facility] [address] [place] [address] 16076 Glenn Gudino M.D. [id number] HCO3 (Bld) [Moles/Vol] 27 mmol/L Normal 21-32 [facility] Comment on above: Order Comment: [facility] has implemented the eGFR calculation approach that does not have a coefficient for race that conforms to the NKF-ASN Task Force Recommendations. Performed By: #### 4 6449 ####[facility] [address] [place] [address] 41366 Glenn Gudino M.D. [id number] Phosphate [Mass/Vol] 2.6 mg/dL Low 2.8-4.1 [facility] Comment on above: Order Comment: [facility] has implemented the eGFR calculation approach that does not have a coefficient for race that conforms to the NKF-ASN Task Force Recommendations. Performed By: #### 4 6449 ####[facility] [address] [place] [address] 91421 Glenn Gudino M.D. [id number] Potassium [Moles/Vol] 4.3 mmol/L Normal 3.5-5.1 [facility] Comment on above: Order Comment: [facility] has implemented the eGFR calculation approach that does not have a coefficient for race that conforms to the NKF-ASN Task Force Recommendations. Performed By: #### 4 6449 ####[facility] [address] [place] [address] 70605 Glenn Gudino M.D. [id number] Sodium [Moles/Vol] 134 mmol/L Low 135-145 [facility] Comment on above: Order Comment: [facility] has implemented the eGFR calculation approach that does not have a coefficient for race that conforms to the NKF-ASN Task Force Recommendations. Performed By: #### 4 6449 ####[facility] [address] [place], [place] [address] Glenn Gudino M.D. [id number] Urea nitrogen [Mass/Vol] 28 mg/dL High 8-25 [facility] Comment on above: Order Comment: [facility] has implemented the eGFR calculation approach that does not have a coefficient for race that conforms to the NKF-ASN Task Force Recommendations. Performed By: #### 4 6449 ####[facility] [address] [place] [address] 79254 Glenn Gudino M.D. [id number] Urea nitrogen/Creatinine [Mass ratio] 13.9 mg/mg Normal 10.0-20.0 [facility] Comment on above: Order Comment: [facility] has implemented the eGFR calculation approach that does not have a coefficient for race that conforms to the NKF-ASN Task Force Recommendations. Performed By: #### 4 6449 ####[facility] [address] [place], [place] [address] Glenn Gudino M.D. [id number] XR CHEST PA/APon 01-30-2024 XR CHEST PA/AP Normal [facility] Comment on above: Order Comment: Injur y/Trauma or Illness?:Illness/OtherHow long have you had these symptoms (acute/chronic)?:AcuteReason for exam?:chest tube palcement, pneumothoraxHistory of cancer?:uSurgeries, chemotherapy, or radiation?:uType of Exam?:Subsequent/Follow-upAdditional signs and symptoms?:chest tube palcement, pneumothorax APTT HEPARIN COVERAGEon aPTT Coag (Bld) [Time] 90 s High 23-34 [facility] Comment on above: Order Comment: Thera peutic range for APTT's is 68 - 104 seconds Performed By: #### 4 6811 ####[facility] [address] [place] [address] Glenn Gudino M.D. [id number] aPTT Coag (Bld) [Time] 93 s High 23-34 [facility] Comment on above: Order Comment: Thera peutic range for APTT's is 68 - 104 seconds Result Comment: Resu lts checked. Performed By: #### 4 6882 ####[facility] [address] [place] [address] Glenn Gduino M.D. [id number] aPTT Coag (Bld) [Time] 66 s High 23-34 [facility] Comment on above: Order Comment: Thera peutic range for APTT's is 68 - 104 seconds Performed By: #### 4 6816 ####[facility] [address] [place] [address] Glenn Gudino M.D. [id number] aPTT Coag (Bld) [Time] 54 s High 23-34 [facility] Comment on above: Order Comment: Thera peutic range for APTT's is 68 - 104 secondsResults checked. Performed By: #### 4 8892 ####[facility] [address] [place], [place] [address] Glenn Gudino M.D. [id number] CALCIUM, IONIZEDon CALCIUM IONIZED 4.6 mg/dL Normal 4.5-5.3 [facility] Comment on above: Order Comment: Serum , non-CRRT source. Performed By: #### 4 5190 ####[facility] [address] [place], [place] [address] Glenn Gudino M.D. [id number] CBCon 01-29-2024 AUTO NRBC 0.0 % Normal [facility] Comment on above: Performed By: #### 4 [id number] ####[facility] [address] [place], [place] [address] Glenn Gudino M.D. [id number] AUTO NRBC ABS COUNT 0.00 K/mcL Normal 0.00-0.00 [facility] Comment on above: Performed By: #### 4 [id number] ####[facility] [address] [place], [place] [address] Glenn Gudino M.D. [id number] Erythrocyte distribution width (RBC) [Ratio] 17.1 % High 11.6-14.8 [facility] Comment on above: Performed By: #### 4 [id number] ####[facility] [address] [place], [place] [address] Glenn Gudino M.D. [id number] Hematocrit (Bld) [Volume fraction] 24.0 % Low 36.0-46.0 [facility] Comment on above: Performed By: #### 4 [id number] ####[facility] [address] [place] [address] 07191 Glenn Gudino M.D. [id number] Hemoglobin (Bld) [Mass/Vol] 7.7 g/dL Low 12.0-16.0 [facility] Comment on above: Performed By: #### 4 [id number] ####[facility] [address] [place] [address] 04718 Glenn Gudino M.D. [id number] MCH (RBC) [Entitic mass] 28.9 pg Normal 26.0-34.0 [facility] Comment on above: Performed By: #### 4 [id number] ####[facility] [address] [place] [address] Glenn Gudino M.D. [id number] MCV (RBC) [Entitic vol] 90.2 fL Normal 80.0-100.0 [facility] Comment on above: Performed By: #### 4 [id number] ####[facility] [address] [place] [address] Glenn Gudino M.D. [id number] MEAN CORPUSCULAR HEMOGLOBIN CONC 32.1 g/dL Normal 31.0-37.0 [facility] Comment on above: Performed By: #### 4 [id number] ####[facility] [address] [place], [place] [address] Glenn Gudino M.D. [id number] Platelet mean volume (Bld) [Entitic vol] 10.2 fL Normal 9.4-12.4 [facility] Comment on above: Performed By: #### 4 [id number] ####[facility] [address] [place], [place] [address] Glenn Gudino M.D. [id number] Platelets (Bld) [#/Vol] 122 10*3/uL Low 150-400 [facility] Comment on above: Performed By: #### 4 [id number] ####[facility] [address] [place], [place] [address] Glenn Gudino M.D. [id number] RBC (Bld) [#/Vol] 2.66 10*6/uL Low 4.00-5.20 [facility] Comment on above: Performed By: #### 4 [id number] ####[facility] [address] [place] [address] 28193 Glenn Gudino M.D. [id number] WBC (Bld) [#/Vol] 8.35 10*3/uL Normal 4.50-11.00 [facility] Comment on above: Performed By: #### 4 [id number] ####[facility] [address] [place], [place] [address] Glenn Gudino M.D. [id number] HEPATITIS B SURFACE ANTIGENo n 01-29-2024 HEPATITIS B SURFACE ANTIGEN Negative Normal Negative [facility] Comment on above: Order Comment: Test performed using [employer] immunoassay system Performed By: #### 4 4081 ####[facility] [address] [place], [place] [address] Glenn Gudino M.D. [id number] MAGNESIUM LEVELon 01-29-2024 Magnesium [Mass/Vol] 2.2 mg/dL Normal 1.6-2.4 [facility] Comment on above: Performed By: #### 4 6109 ####[facility] [address] [place], [place] [address] Glenn Gudino M.D. [id number] POC GLUCOSE - [facility] 024 Glucose [Mass/Vol] 167 mg/dL High 65-99 [facility] Comment on above: Performed By: #### 4 1936 ####[facility] [address] [place] [address] [id number] RMHPOC Glucose [Mass/Vol] 121 mg/dL High 65-99 [facility] Comment on above: Performed By: #### 4 3856 ####[facility] [address] [place] [address] [id number] RMHPOC Glucose [Mass/Vol] 54 mg/dL Low 65-99 [facility] Comment on above: Performed By: #### 4 6476 ####[facility] [address] [place] [address] [id number] RMHPOC Glucose [Mass/Vol] 103 mg/dL High 65-99 [facility] Comment on above: Performed By: #### 4 6932 ####[facility] [address] [place] [address] [id number] RMHPOC Glucose [Mass/Vol] 131 mg/dL High 65-99 [facility] Comment on above: Performed By: #### 4 6932 ####[facility] [address] [place] [address] [id number] RMHPOC Glucose [Mass/Vol] 96 mg/dL Normal 65-99 [facility] Comment on above: Performed By: #### 4 6932 ####[facility] [address] [place] [address] [id number] RMHPOC Glucose [Mass/Vol] 114 mg/dL High 65-99 [facility] Comment on above: Performed By: #### 4 6932 ####[facility] [address] [place] [address] [id number] RMHPOC RENAL FUNCTION PANELon 01-28 Albumin [Mass/Vol] 2.3 g/dL Low 3.2-5.2 [facility] Comment on above: Order Comment: [facility] has implemented the eGFR calculation approach that does not have a coefficient for race that conforms to the NKF-ASN Task Force Recommendations. Performed By: #### 4 6449 ####[facility] [address] [place] [address] Glenn Gudino M.D. [id number] Anion gap [Moles/Vol] 11 mmol/L Normal 10-20 [facility] Comment on above: Order Comment: [facility] has implemented the eGFR calculation approach that does not have a coefficient for race that conforms to the NKF-ASN Task Force Recommendations. Performed By: #### 4 6449 ####[facility] [address] [place] [address] Glenn Gudino M.D. [id number] Calcium [Mass/Vol] 7.3 mg/dL Low 8.4-10.2 [facility] Comment on above: Order Comment: [facility] has implemented the eGFR calculation approach that does not have a coefficient for race that conforms to the NKF-ASN Task Force Recommendations. Performed By: #### 4 6449 ####[facility] [address] [place], [place] [address] Glenn Gudino M.D. [id number] Chloride [Moles/Vol] 100 mmol/L Normal 98-108 [facility] Comment on above: Order Comment: [facility] has implemented the eGFR calculation approach that does not have a coefficient for race that conforms to the NKF-ASN Task Force Recommendations. Performed By: #### 4 6449 ####[facility] [address] [place], [place] [address] Glenn Gudino M.D. [id number] Creatinine [Mass/Vol] 1.90 mg/dL High 0.60-1.10 [facility] Comment on above: Order Comment: [facility] has implemented the eGFR calculation approach that does not have a coefficient for race that conforms to the NKF-ASN Task Force Recommendations. Performed By: #### 4 6449 ####[facility] [address] [place] [address] 02856 Glenn Gudino M.D. [id number] EGFR 30 mL/min/1.73 m2 Low >=60 [facility] Comment on above: Order Comment: [facility] has implemented the eGFR calculation approach that does not have a coefficient for race that conforms to the NKF-ASN Task Force Recommendations. Result Comment: Joi mated GFR was calculated using the 2020 CKD-EPI creatinine equation. Performed By: #### 4 6449 ####[facility] [address] [place] [address] 38983 Glenn Gudino M.D. [id number] Glucose [Mass/Vol] 151 mg/dL High 65-99 [facility] Comment on above: Order Comment: [facility] has implemented the eGFR calculation approach that does not have a coefficient for race that conforms to the NKF-ASN Task Force Recommendations. Performed By: #### 4 6449 ####[facility] [address] [place] [address] 91900 Glenn Gudino M.D. [id number] HCO3 (Bld) [Moles/Vol] 28 mmol/L Normal 21-32 [facility] Comment on above: Order Comment: [facility] has implemented the eGFR calculation approach that does not have a coefficient for race that conforms to the NKF-ASN Task Force Recommendations. Performed By: #### 4 6449 ####[facility] [address] [place] [address] 21046 Glenn Gudino M.D. [id number] Phosphate [Mass/Vol] 2.2 mg/dL Low 2.8-4.1 [facility] Comment on above: Order Comment: [facility] has implemented the eGFR calculation approach that does not have a coefficient for race that conforms to the NKF-ASN Task Force Recommendations. Performed By: #### 4 6449 ####[facility] [address] [place] [address] 63789 Glenn Gudino M.D. [id number] Potassium [Moles/Vol] 4.3 mmol/L Normal 3.5-5.1 [facility] Comment on above: Order Comment: [facility] has implemented the eGFR calculation approach that does not have a coefficient for race that conforms to the NKF-ASN Task Force Recommendations. Performed By: #### 4 6449 ####[facility] [address] [place] [address] 51325 Glenn Gudino M.D. [id number] Sodium [Moles/Vol] 135 mmol/L Normal 135-145 [facility] Comment on above: Order Comment: [facility] has implemented the eGFR calculation approach that does not have a coefficient for race that conforms to the NKF-ASN Task Force Recommendations. Performed By: #### 4 6449 ####[facility] [address] [place] [address] 97481 Glenn Gudino M.D. [id number] Urea nitrogen [Mass/Vol] 26 mg/dL High 8-25 [facility] Comment on above: Order Comment: [facility] has implemented the eGFR calculation approach that does not have a coefficient for race that conforms to the NKF-ASN Task Force Recommendations. Performed By: #### 4 6449 ####[facility] [address] [place] [address] 28095 Glenn Gudino M.D. [id number] Urea nitrogen/Creatinine [Mass ratio] 13.7 mg/mg Normal 10.0-20.0 [facility] Comment on above: Order Comment: [facility] has implemented the eGFR calculation approach that does not have a coefficient for race that conforms to the NKF-ASN Task Force Recommendations. Performed By: #### 4 6449 ####[facility] [address] [place] [address] 92745 Glenn Gudino M.D. [id number] Albumin [Mass/Vol] 1.5 g/dL Low 3.2-5.2 [facility] Comment on above: Order Comment: [facility] has implemented the eGFR calculation approach that does not have a coefficient for race that conforms to the NKF-ASN Task Force Recommendations. Performed By: #### 4 6449 ####[facility] [address] [place] [address] 19787 Glenn Gudino M.D. [id number] Anion gap [Moles/Vol] 13 mmol/L Normal 10-20 [facility] Comment on above: Order Comment: [facility] has implemented the eGFR calculation approach that does not have a coefficient for race that conforms to the NKF-ASN Task Force Recommendations. Performed By: #### 4 6449 ####[facility] [address] [place] [address] 64301 Glenn Gudino M.D. [id number] Calcium [Mass/Vol] 7.3 mg/dL Low 8.4-10.2 [facility] Comment on above: Order Comment: [facility] has implemented the eGFR calculation approach that does not have a coefficient for race that conforms to the NKF-ASN Task Force Recommendations. Performed By: #### 4 6449 ####[facility] [address] [place] [address] 91862 Glenn Gudino M.D. [id number] Chloride [Moles/Vol] 104 mmol/L Normal 98-108 [facility] Comment on above: Order Comment: [facility] has implemented the eGFR calculation approach that does not have a coefficient for race that conforms to the NKF-ASN Task Force Recommendations. Performed By: #### 4 6449 ####[facility] [address] [place], [place] [address] Glenn Gudino M.D. [id number] Creatinine [Mass/Vol] 2.66 mg/dL High 0.60-1.10 [facility] Comment on above: Order Comment: [facility] has implemented the eGFR calculation approach that does not have a coefficient for race that conforms to the NKF-ASN Task Force Recommendations. Performed By: #### 4 6449 ####[facility] [address] [place], [place] [address] Glenn Gudino M.D. [id number] EGFR 20 mL/min/1.73 m2 Low >=60 [facility] Comment on above: Order Comment: [facility] has implemented the eGFR calculation approach that does not have a coefficient for race that conforms to the NKF-ASN Task Force Recommendations. Result Comment: Joi mated GFR was calculated using the 2020 CKD-EPI creatinine equation. Performed By: #### 4 6449 ####[facility] [address] [place] [address] 74168 Glenn Gudino M.D. [id number] Glucose [Mass/Vol] 104 mg/dL High 65-99 [facility] Comment on above: Order Comment: [facility] has implemented the eGFR calculation approach that does not have a coefficient for race that conforms to the NKF-ASN Task Force Recommendations. Performed By: #### 4 6449 ####[facility] [address] [place], [place] [address] Glenn Gudino M.D. [id number] HCO3 (Bld) [Moles/Vol] 23 mmol/L Normal 21-32 [facility] Comment on above: Order Comment: [facility] has implemented the eGFR calculation approach that does not have a coefficient for race that conforms to the NKF-ASN Task Force Recommendations. Performed By: #### 4 6449 ####[facility] [address] [place], [place] [address] Glenn Gudino M.D. [id number] Phosphate [Mass/Vol] 3.1 mg/dL Normal 2.8-4.1 [facility] Comment on above: Order Comment: [facility] has implemented the eGFR calculation approach that does not have a coefficient for race that conforms to the NKF-ASN Task Force Recommendations. Performed By: #### 4 6449 ####[facility] [address] [place], [place] [address] Glenn Gudino M.D. [id number] Potassium [Moles/Vol] 5.0 mmol/L Normal 3.5-5.1 [facility] Comment on above: Order Comment: [facility] has implemented the eGFR calculation approach that does not have a coefficient for race that conforms to the NKF-ASN Task Force Recommendations. Performed By: #### 4 6449 ####[facility] [address] [place], [place] [address] Glenn Gudino M.D. [id number] Sodium [Moles/Vol] 135 mmol/L Normal 135-145 [facility] Comment on above: Order Comment: [facility] has implemented the eGFR calculation approach that does not have a coefficient for race that conforms to the NKF-ASN Task Force Recommendations. Performed By: #### 4 6449 ####[facility] [address] [place] [address] 16380 Glenn Gudino M.D. [id number] Urea nitrogen [Mass/Vol] 42 mg/dL High 8-25 [facility] Comment on above: Order Comment: [facility] has implemented the eGFR calculation approach that does not have a coefficient for race that conforms to the NKF-ASN Task Force Recommendations. Performed By: #### 4 6449 ####[facility] [address] [place] [address] 72055 Glenn Gudino M.D. [id number] Urea nitrogen/Creatinine [Mass ratio] 15.8 mg/mg Normal 10.0-20.0 [facility] Comment on above: Order Comment: [facility] has implemented the eGFR calculation approach that does not have a coefficient for race that conforms to the NKF-ASN Task Force Recommendations. Performed By: #### 4 6449 ####[facility] [address] [place] [address] 09180 Glenn Gudino M.D. [id number] XR ABDOMEN /KUB/FLAT PLATE/1 VIEWon 01-29-2024 XR ABDOMEN /KUB/FLAT PLATE/1 VIEW Normal [facility] Comment on above: Order Comment: Injur y/Trauma or Illness?:Illness/OtherHow long have you had these symptoms (acute/chronic)?:AcuteReason for exam?:NGT placementHistory of cancer?:uSurgeries, chemotherapy, or radiation?:uType of Exam?:UnknownAdditional signs and symptoms?:no XR CHEST PA/APon 01-29-2024 XR CHEST PA/AP Normal [facility] Comment on above: Order Comment: Injur y/Trauma or Illness?:Illness/OtherHow long have you had these symptoms (acute/chronic)?:AcuteReason for exam?:chest tube palcement, pneumothoraxHistory of cancer?:uSurgeries, chemotherapy, or radiation?:uType of Exam?:Subsequent/Follow-upAdditional signs and symptoms?:chest tube palcement, pneumothorax ANTIBODY IDENTIFICATION-Con 01-28-2024 ANTIBODY IDENTIFICATION-C Normal [facility] Comment on above: Performed By: #### 4 [id number]_Anti-C ####[facility] [address] [place] [address] Nurys Oneill MD [id number] [facility] APTT HEPARIN COVERAGEon 09-0 aPTT Coag (Bld) [Time] 70 s High 23-34 [facility] Comment on above: Order Comment: Thera peutic range for APTT's is 68 - 104 seconds Result Comment: Resu lts checked. Performed By: #### 4 6848 ####[facility] [address] [place] [address] Glenn Gudino M.D. [id number] B12/FOLATEon 01-28-2024 Cobalamin (Vitamin B12) [Mass/Vol] 879 pg/mL Normal 232-1245 [facility] Comment on above: Performed By: #### 4 6967 ####[facility] [address] [place] [address] Glenn Gudino M.D. [id number] FOLATE 10.0 ng/mL Normal 3.1-17.5 [facility] Comment on above: Result Comment: Defi cient <2.2Borderline 2.2 - 3.0Excessive >17.5 Performed By: #### 4 6967 ####[facility] [address] [place], [place] [address] Glenn Gudino M.D. [id number] CALCIUM, IONIZEDon CALCIUM IONIZED 4.5 mg/dL Normal 4.5-5.3 [facility] Comment on above: Order Comment: Serum , non-CRRT source. Performed By: #### 4 5190 ####[facility] [address] [place] [address] Glenn Gudino M.D. [id number] CBCon 01-28-2024 AUTO NRBC 0.0 % Normal [facility] Comment on above: Order Comment: One h our post RBC transfusion Performed By: #### 4 5218 ####[facility] [address] [place] [address] Glenn Gudino M.D. [id number] AUTO NRBC ABS COUNT 0.00 K/mcL Normal 0.00-0.00 [facility] Comment on above: Order Comment: One h our post RBC transfusion Performed By: #### 4 5218 ####[facility] [address] [place] [address] Glenn Gudino M.D. [id number] Erythrocyte distribution width (RBC) [Ratio] 16.3 % High 11.6-14.8 [facility] Comment on above: Order Comment: One h our post RBC transfusion Performed By: #### 4 5218 ####[facility] [address] [place] [address] Glenn Gudino M.D. [id number] Hematocrit (Bld) [Volume fraction] 25.3 % Low 36.0-46.0 [facility] Comment on above: Order Comment: One h our post RBC transfusion Performed By: #### 4 5218 ####[facility] [address] [place], [place] [address] Glenn Gudino M.D. [id number] Hemoglobin (Bld) [Mass/Vol] 8.2 g/dL Low 12.0-16.0 [facility] Comment on above: Order Comment: One h our post RBC transfusion Performed By: #### 4 [id number] ####[facility] [address] [place], [place] [address] Glenn Gudino M.D. [id number] MCH (RBC) [Entitic mass] 29.3 pg Normal 26.0-34.0 [facility] Comment on above: Order Comment: One h our post RBC transfusion Performed By: #### 4 [id number] ####[facility] [address] [place] [address] Glenn Gudino M.D. [id number] MCV (RBC) [Entitic vol] 90.4 fL Normal 80.0-100.0 [facility] Comment on above: Order Comment: One h our post RBC transfusion Performed By: #### 4 5218 ####[facility] [address] [place] [address] Glenn Gudino M.D. [id number] MEAN CORPUSCULAR HEMOGLOBIN CONC 32.4 g/dL Normal 31.0-37.0 [facility] Comment on above: Order Comment: One h our post RBC transfusion Performed By: #### 4 [id number] ####[facility] [address] [place] [address] Glenn Gudino M.D. [id number] Platelet mean volume (Bld) [Entitic vol] 10.9 fL Normal 9.4-12.4 [facility] Comment on above: Order Comment: One h our post RBC transfusion Performed By: #### 4 [id number] ####[facility] [address] [place], [place] [address] Glenn Gudino M.D. [id number] Platelets (Bld) [#/Vol] 118 10*3/uL Low 150-400 [facility] Comment on above: Order Comment: One h our post RBC transfusion Performed By: #### 4 [id number] ####[facility] [address] [place], [place] [address] Glenn Gudino M.D. [id number] RBC (Bld) [#/Vol] 2.80 10*6/uL Low 4.00-5.20 [facility] Comment on above: Order Comment: One h our post RBC transfusion Performed By: #### 4 [id number] ####[facility] [address] [place], [place] [address] Glenn Gudino M.D. [id number] WBC (Bld) [#/Vol] 7.55 10*3/uL Normal 4.50-11.00 [facility] Comment on above: Order Comment: One h our post RBC transfusion Performed By: #### 4 5218 ####[facility] [address] [place] [address] Glenn Gudino M.D. [id number] AUTO NRBC 0.0 % Normal [facility] Comment on above: Performed By: #### 4 5218 ####[facility] [address] [place] [address] Glenn Gudino M.D. [id number] AUTO NRBC ABS COUNT 0.00 K/mcL Normal 0.00-0.00 [facility] Comment on above: Performed By: #### 4 [id number] ####[facility] [address] [place], [place] [address] Glenn Gudino M.D. [id number] Erythrocyte distribution width (RBC) [Ratio] 17.2 % High 11.6-14.8 [facility] Comment on above: Performed By: #### 4 5218 ####[facility] [address] [place], [place] [address] Glenn Gudino M.D. [id number] Hematocrit (Bld) [Volume fraction] 22.0 % Low 36.0-46.0 [facility] Comment on above: Performed By: #### 4 5218 ####[facility] [address] [place], [place] [address] Glenn Gudino M.D. [id number] Hemoglobin (Bld) [Mass/Vol] 7.2 g/dL Low 12.0-16.0 [facility] Comment on above: Result Comment: Repe ated verified Performed By: #### 4 5218 ####[facility] [address] [place] [address] 29596 Glenn Gudino M.D. [id number] MCH (RBC) [Entitic mass] 29.8 pg Normal 26.0-34.0 [facility] Comment on above: Performed By: #### 4 5218 ####[facility] [address] [place] [address] Glenn Gudino M.D. [id number] MCV (RBC) [Entitic vol] 90.9 fL Normal 80.0-100.0 [facility] Comment on above: Performed By: #### 4 5218 ####[facility] [address] [place] [address] Glenn Gudino M.D. [id number] MEAN CORPUSCULAR HEMOGLOBIN CONC 32.7 g/dL Normal 31.0-37.0 [facility] Comment on above: Performed By: #### 4 5218 ####[facility] [address] [place], [place] [address] Glenn Gudino M.D. [id number] Platelet mean volume (Bld) [Entitic vol] 11.2 fL Normal 9.4-12.4 [facility] Comment on above: Performed By: #### 4 [id number] ####[facility] [address] [place], [place] [address] Glenn Gudino M.D. [id number] Platelets (Bld) [#/Vol] 130 10*3/uL Low 150-400 [facility] Comment on above: Performed By: #### 4 [id number] ####[facility] [address] [place], [place] [address] Glenn Gudino M.D. [id number] RBC (Bld) [#/Vol] 2.42 10*6/uL Low 4.00-5.20 [facility] Comment on above: Performed By: #### 4 [id number] ####[facility] [address] [place], [place] [address] Glenn Gudino M.D. [id number] WBC (Bld) [#/Vol] 8.26 10*3/uL Normal 4.50-11.00 [facility] Comment on above: Performed By: #### 4 [id number] ####[facility] [address] [place] [address] Glenn Gudino M.D. [id number] IRONon 01-28-2024 Iron [Mass/Vol] 49 ug/dL Normal 30-160 [facility] Comment on above: Performed By: #### 4 6039 ####[facility] [address] [place] [address] Glenn Gudino M.D. [id number] Performed By: #### 4 7645 ####[facility] [address] [place] [address] Glenn Gudino M.D. [id number] IRON STUDY WITH FERRITINon 0 01-28-2024 Ferritin [Mass/Vol] 3753 ng/mL High 13-150 [facility] Comment on above: Performed By: #### 4 7645 ####[facility] [address] [place], [place] [address] Glenn Gudino M.D. [id number] IRON SATURATION 70 % High 20-50 [facility] Comment on above: Performed By: #### 4 7645 ####[facility] [address] [place], [place] [address] Glenn Gudino M.D. [id number] TIBC (CALCULATED) 70 mcg/dL Low 225-430 [facility] Comment on above: Performed By: #### 4 7645 ####[facility] [address] [place], [place] [address] Glenn Gudino M.D. [id number] MAGNESIUM LEVELon 01-28-2024 Magnesium [Mass/Vol] 2.2 mg/dL Normal 1.6-2.4 [facility] Comment on above: Performed By: #### 4 6109 ####[facility] [address] [place] [address] Glenn Gudino M.D. [id number] POC GLUCOSE - [facility] 024 Glucose [Mass/Vol] 119 mg/dL High [address] [place] [address] Comment on above: Performed By: #### 4 6932 ####[facility] [address] [place] [address] [id number] [facility] Glucose [Mass/Vol] 128 mg/dL High [address] [place] [address] Comment on above: Performed By: #### 4 6932 ####[facility] [address] [place] [address] [id number] [facility] Glucose [Mass/Vol] 123 mg/dL High [address] [place] [address] Comment on above: Performed By: #### 4 2089 ####[facility] [address] [place] [address] [id number] [facility] Glucose [Mass/Vol] 114 mg/dL [address] Comment on above: Performed By: #### 4 6935 ####[facility] [address] [place] [address] [id number] [facility] Glucose [Mass/Vol] 65 mg/dL Normal -[address] [place] [address] Comment on above: Performed By: #### 4 4863 ####[facility] [address] [place] [address] [id number] [facility] Glucose [Mass/Vol] 85 mg/dL Normal [address] [place] [address] Comment on above: Performed By: #### 4 4552 ####[facility] [address] [place] [address] [id number] [facility] Glucose [Mass/Vol] 126 mg/dL High [address] [place] [address] Comment on above: Performed By: #### 4 6932 ####[facility] [address] [place] [address] [id number] [facility] RENAL FUNCTION PANELon 01-27 Albumin [Mass/Vol] 1.6 g/dL Low 3.2-5.2 [facility] Comment on above: Order Comment: [facility] has implemented the eGFR calculation approach that does not have a coefficient for race that conforms to the NKF-ASN Task Force Recommendations. Performed By: #### 4 6449 ####[facility] [address] [place] [address] Glenn Gudino M.D. [id number] Anion gap [Moles/Vol] 12 mmol/L Normal 10-20 [facility] Comment on above: Order Comment: [facility] has implemented the eGFR calculation approach that does not have a coefficient for race that conforms to the NKF-ASN Task Force Recommendations. Performed By: #### 4 6449 ####[facility] [address] [place] [address] Glenn Gudino M.D. [id number] Calcium [Mass/Vol] 7.2 mg/dL Low 8.4-10.2 [facility] Comment on above: Order Comment: [facility] has implemented the eGFR calculation approach that does not have a coefficient for race that conforms to the NKF-ASN Task Force Recommendations. Performed By: #### 4 6449 ####[facility] [address] [place] [address] Glenn Gudino M.D. [id number] Chloride [Moles/Vol] 103 mmol/L Normal 98-108 [facility] Comment on above: Order Comment: [facility] has implemented the eGFR calculation approach that does not have a coefficient for race that conforms to the NKF-ASN Task Force Recommendations. Performed By: #### 4 6449 ####[facility] [address] [place] [address] Glenn Gudino M.D. [id number] Creatinine [Mass/Vol] 2.36 mg/dL High 0.60-1.10 [facility] Comment on above: Order Comment: [facility] has implemented the eGFR calculation approach that does not have a coefficient for race that conforms to the NKF-ASN Task Force Recommendations. Performed By: #### 4 6449 ####[facility] [address] [place] [address] Glenn Gudino M.D. [id number] EGFR 23 mL/min/1.73 m2 Low >=60 [facility] Comment on above: Order Comment: [facility] has implemented the eGFR calculation approach that does not have a coefficient for race that conforms to the NKF-ASN Task Force Recommendations. Result Comment: Joi mated GFR was calculated using the 2020 CKD-EPI creatinine equation. Performed By: #### 4 6449 ####[facility] [address] [place], [place] [address] Glenn Gudino M.D. [id number] Glucose [Mass/Vol] 120 mg/dL High 65-99 [facility] Comment on above: Order Comment: [facility] has implemented the eGFR calculation approach that does not have a coefficient for race that conforms to the NKF-ASN Task Force Recommendations. Performed By: #### 4 6449 ####[facility] [address] [place] [address] 89291 Glenn Gudino M.D. [id number] HCO3 (Bld) [Moles/Vol] 24 mmol/L Normal 21-32 [facility] Comment on above: Order Comment: [facility] has implemented the eGFR calculation approach that does not have a coefficient for race that conforms to the NKF-ASN Task Force Recommendations. Performed By: #### 4 6449 ####[facility] [address] [place] [address] 934[address] Glenn Gudino M.D. [id number] Phosphate [Mass/Vol] 3.1 mg/dL Normal 2.8-4.1 [facility] Comment on above: Order Comment: [facility] has implemented the eGFR calculation approach that does not have a coefficient for race that conforms to the NKF-ASN Task Force Recommendations. Performed By: #### 4 6449 ####[facility] [address] [place] [address] Glenn Gudino M.D. [id number] Potassium [Moles/Vol] 4.8 mmol/L Normal 3.5-5.1 [facility] Comment on above: Order Comment: [facility] [facility] has implemented the eGFR calculation approach that does not have a coefficient for race that conforms to the NKF-ASN Task Force Recommendations. Performed By: #### 4 [id number] ####[facility] [address] [place], [place] [id number] Glenn Gudino M.D. [id number] Sodium [Moles/Vol] 134 mmol/L Low 135-145 [facility] Comment on above: Order Comment: [facility] has implemented the eGFR calculation approach that does not have a coefficient for race that conforms to the NKF-ASN Task Force Recommendations. Performed By: #### 4 [id number] ####[facility] [address] [place] [address] Glenn Gudino M.D. [id number] Urea nitrogen [Mass/Vol] 34 mg/dL High 8-25 [facility] Comment on above: Order Comment: [facility] has implemented the eGFR calculation approach that does not have a coefficient for race that conforms to the NKF-ASN Task Force Recommendations. Performed By: #### 4 [id number] ####[facility] [address] [place], [place] [address] Glenn Gudino M.D. [id number] Urea nitrogen/Creatinine [Mass ratio] 14.4 mg/mg Normal 10.0-20.0 [facility] Comment on above: Order Comment: [facility] has implemented the eGFR calculation approach that does not have a coefficient for race that conforms to the NKF-ASN Task Force Recommendations. Performed By: #### 4 [id number] ####[facility] [address] [place] [address] Glenn Gudino M.D. [id number] Albumin [Mass/Vol] 1.6 g/dL Low 3.2-5.2 [facility] Comment on above: Order Comment: [facility] has implemented the eGFR calculation approach that does not have a coefficient for race that conforms to the NKF-ASN Task Force Recommendations. Performed By: #### 4 [id number] ####[facility] [address] [place], [place] [address] Glenn Gudino M.D. [id number] Anion gap [Moles/Vol] 13 mmol/L Normal 10-20 [facility] Comment on above: Order Comment: [facility] has implemented the eGFR calculation approach that does not have a coefficient for race that conforms to the NKF-ASN Task Force Recommendations. Performed By: #### 4 [id number] ####[facility] [address] [place] [address] 18771 Glenn Gudino M.D. [id number] Calcium [Mass/Vol] 7.9 mg/dL Low 8.4-10.2 [facility] Comment on above: Order Comment: [facility] has implemented the eGFR calculation approach that does not have a coefficient for race that conforms to the NKF-ASN Task Force Recommendations. Performed By: #### 4 [id number] ####[facility] [address] [place] [address] Glenn Gudino M.D. [id number] Chloride [Moles/Vol] 104 mmol/L Normal 98-108 [facility] Comment on above: Order Comment: [facility] has implemented the eGFR calculation approach that does not have a coefficient for race that conforms to the NKF-ASN Task Force Recommendations. Performed By: #### 4 [id number] ####[facility] [address] [place] [address] 269[address] Glenn Gudino M.D. [id number] Creatinine [Mass/Vol] 2.07 mg/dL High 0.60-1.10 [facility] Comment on above: Order Comment: [facility] has implemented the eGFR calculation approach that does not have a coefficient for race that conforms to the NKF-ASN Task Force Recommendations. Performed By: #### 4 6449 ####[facility] [address] [place] [address] 25591 Glenn Gudino M.D. [id number] EGFR 27 mL/min/1.73 m2 Low >=60 [facility] Comment on above: Order Comment: [facility] has implemented the eGFR calculation approach that does not have a coefficient for race that conforms to the NKF-ASN Task Force Recommendations. Result Comment: Joi mated GFR was calculated using the 2020 CKD-EPI creatinine equation. Performed By: #### 4 [id number] ####[facility] [address] [place] [address] 58399 Glenn Gudino M.D. [id number] Glucose [Mass/Vol] 120 mg/dL High 65-99 [facility] Comment on above: Order Comment: [facility] has implemented the eGFR calculation approach that does not have a coefficient for race that conforms to the NKF-ASN Task Force Recommendations. Performed By: #### 4 6449 ####[facility] [address] [place] [address] 86671 Glenn Gudino M.D. [id number] HCO3 (Bld) [Moles/Vol] 24 mmol/L Normal 21-32 [facility] Comment on above: Order Comment: [facility] has implemented the eGFR calculation approach that does not have a coefficient for race that conforms to the NKF-ASN Task Force Recommendations. Performed By: #### 4 6449 ####[facility] [address] [place] [address] Glenn Gudino M.D. [id number] Phosphate [Mass/Vol] 3.2 mg/dL Normal 2.8-4.1 [facility] Comment on above: Order Comment: [facility] has implemented the eGFR calculation approach that does not have a coefficient for race that conforms to the NKF-ASN Task Force Recommendations. Performed By: #### 4 6449 ####[facility] [address] [place], [place] [address] Glenn Gudino M.D. [id number] Potassium [Moles/Vol] 4.9 mmol/L Normal 3.5-5.1 [facility] Comment on above: Order Comment: [facility] has implemented the eGFR calculation approach that does not have a coefficient for race that conforms to the NKF-ASN Task Force Recommendations. Result Comment: Slig htly Hemolyzed Performed By: #### 4 6449 ####[facility] [address] [place] [address] 53517 Glenn Gudino M.D. [id number] Sodium [Moles/Vol] 136 mmol/L Normal 135-145 [facility] Comment on above: Order Comment: [facility] has implemented the eGFR calculation approach that does not have a coefficient for race that conforms to the NKF-ASN Task Force Recommendations. Performed By: #### 4 6449 ####[facility] [address] [place], [place] [address] Glenn Gudino M.D. [id number] Urea nitrogen [Mass/Vol] 29 mg/dL High 8-25 [facility] Comment on above: Order Comment: [facility] has implemented the eGFR calculation approach that does not have a coefficient for race that conforms to the NKF-ASN Task Force Recommendations. Performed By: #### 4 6449 ####[facility] [address] [place], [place] [address] Glenn Gudino M.D. [id number] Urea nitrogen/Creatinine [Mass ratio] 14.0 mg/mg Normal 10.0-20.0 [facility] Comment on above: Order Comment: [facility] has implemented the eGFR calculation approach that does not have a coefficient for race that conforms to the NKF-ASN Task Force Recommendations. Performed By: #### 4 6449 ####[facility] [address] [place] [address]1157 Glenn Gudino M.D. [id number] Albumin [Mass/Vol] 1.6 g/dL Low 3.2-5.2 [facility] Comment on above: Order Comment: [facility] has implemented the eGFR calculation approach that does not have a coefficient for race that conforms to the NKF-ASN Task Force Recommendations. Performed By: #### 4 6449 ####[facility] [address] [place], [place] [address] Glenn Gudino M.D. [id number] Anion gap [Moles/Vol] 14 mmol/L Normal 10-20 [facility] Comment on above: Order Comment: [facility] has implemented the eGFR calculation approach that does not have a coefficient for race that conforms to the NKF-ASN Task Force Recommendations. Performed By: #### 4 6449 ####[facility] [address] [place] [address] 17872 Glenn Gudino M.D. [id number] Calcium [Mass/Vol] 7.4 mg/dL Low 8.4-10.2 [facility] Comment on above: Order Comment: [facility] has implemented the eGFR calculation approach that does not have a coefficient for race that conforms to the NKF-ASN Task Force Recommendations. Performed By: #### 4 6449 ####[facility] [address] [place] [address] 25096 Glenn Gudino M.D. [id number] Chloride [Moles/Vol] 105 mmol/L Normal 98-108 [facility] Comment on above: Order Comment: [facility] has implemented the eGFR calculation approach that does not have a coefficient for race that conforms to the NKF-ASN Task Force Recommendations. Performed By: #### 4 6449 ####[facility] [address] [place], [place] [address] Glenn Gudino M.D. [id number] Creatinine [Mass/Vol] 1.94 mg/dL High 0.60-1.10 [facility] Comment on above: Order Comment: [facility] has implemented the eGFR calculation approach that does not have a coefficient for race that conforms to the NKF-ASN Task Force Recommendations. Performed By: #### 4 6449 ####[facility] [address] [place], [place] [address] Glenn Gudino M.D. [id number] EGFR 29 mL/min/1.73 m2 Low >=60 [facility] Comment on above: Order Comment: [facility] has implemented the eGFR calculation approach that does not have a coefficient for race that conforms to the NKF-ASN Task Force Recommendations. Result Comment: Joi mated GFR was calculated using the 2020 CKD-EPI creatinine equation. Performed By: #### 4 [id number] ####[facility] [address] [place] [address]5211 Glenn Gudino M.D. [id number] Glucose [Mass/Vol] 125 mg/dL High 65-99 [facility] Comment on above: Order Comment: [facility] has implemented the eGFR calculation approach that does not have a coefficient for race that conforms to the NKF-ASN Task Force Recommendations. Performed By: #### 4 6449 ####[facility] [address] [place] [address] 59474 Glenn Gudino M.D. [id number] HCO3 (Bld) [Moles/Vol] 24 mmol/L Normal 21-32 [facility] Comment on above: Order Comment: [facility] has implemented the eGFR calculation approach that does not have a coefficient for race that conforms to the NKF-ASN Task Force Recommendations. Performed By: #### 4 6449 ####[facility] [address] [place] [address] 56072 Glenn Gudino M.D. [id number] Phosphate [Mass/Vol] 3.5 mg/dL Normal 2.8-4.1 [facility] Comment on above: Order Comment: [facility] has implemented the eGFR calculation approach that does not have a coefficient for race that conforms to the NKF-ASN Task Force Recommendations. Performed By: #### 4 6449 ####[facility] [address] [place] [address] 55943 Glenn Gudino M.D. [id number] Potassium [Moles/Vol] 5.2 mmol/L High 3.5-5.1 [facility] Comment on above: Order Comment: [facility] has implemented the eGFR calculation approach that does not have a coefficient for race that conforms to the NKF-ASN Task Force Recommendations. Result Comment: Slig htly Hemolyzed Performed By: #### 4 6449 ####[facility] [address] [place] [address] 94096 Glenn Gudino M.D. [id number] Sodium [Moles/Vol] 138 mmol/L Normal 135-145 [facility] Comment on above: Order Comment: [facility] has implemented the eGFR calculation approach that does not have a coefficient for race that conforms to the NKF-ASN Task Force Recommendations. Performed By: #### 4 6449 ####[facility] [address] [place] [address] 01686 Glenn Gudino M.D. [id number] Urea nitrogen [Mass/Vol] 29 mg/dL High 8-25 [facility] Comment on above: Order Comment: [facility] has implemented the eGFR calculation approach that does not have a coefficient for race that conforms to the NKF-ASN Task Force Recommendations. Performed By: #### 4 6449 ####[facility] [address] [place], [place] [address] Glenn Gudino M.D. [id number] Urea nitrogen/Creatinine [Mass ratio] 14.9 mg/mg Normal 10.0-20.0 [facility] Comment on above: Order Comment: [facility] has implemented the eGFR calculation approach that does not have a coefficient for race that conforms to the NKF-ASN Task Force Recommendations. Performed By: #### 4 6449 ####[facility] [address] [place] [address] Glenn Gudino M.D. [id number] RETICULOCYTEon 01-28-2024 IMMATURE RETIC FRACT 21.2 % High 2.3-15.9 [facility] Comment on above: Performed By: #### 4 6452 ####[facility] [address] [place], [place] [address] Glenn Gudino M.D. [id number] RETIC HGB EQUIVALENT 24.7 PG Low 27.7-38.2 [facility] Comment on above: Result Comment: The cut-off for RET-He established in our institution is 27.7-38.2 pg/RBC. A value below this range is highly suggestive of iron deficiency. At values above 38.2 pg/RBC, patients are unlikely to respond to additional iron therapy. Performed By: #### 4 6452 ####[facility] [address] [place], [place] [address] Glenn Gudino M.D. [id number] RETICULOCYTE ABSOLUTE COUNT 0.055 M/mcL Normal 0.025-0.07 0 [facility] Comment on above: Performed By: #### 4 6452 ####[facility] [address] [place], [place] [address] Glenn Gudino M.D. [id number] RETICULOCYTE COUNT PCT 2.3 % Normal [facility] Comment on above: Performed By: #### 4 6452 ####[facility] [address] [place], [place] [address] Glenn Gudino M.D. [id number] TRIGLYCERIDESon 01-28-2024 Triglyceride [Mass/Vol] 95 mg/dL Normal 30-150 [facility] Comment on above: Result Comment: [place] on[facility] Cholesterol Education Program Guidelines: TriglycerideNormal: <150 mg/dLBorderline High: 150-199 mg/dLHigh: 200-499 mg/dLVery High: greater than or equal to 500 mg/dL Performed By: #### 4 6606 ####[facility] [address] [place] [address] Glenn Gudino M.D. [id number] TRIGLYCERIDES, BODY FLUIDSon 01-28-2024 TRIGLYCERIDES FLUID 333 mg/dL Normal [facility] Comment on above: Order Comment: No es tablished reference range. Performed By: #### 4 7057 ####[facility] [address] [place] [address] Glenn Gudino M.D. [id number] TYPE AND SCREENon 01-28-2024 TYPE AND SCREEN ABORH: O Positive AB SCREEN: Positive EXPIRATION DATE: 01/31/2024 23:59 EST [facility] Comment on above: Performed By: #### 4 6619 ####[facility] [address] [place] [address] Nurys Oneill MD [id number] RMHTS XR ABDOMEN /KUB/FLAT PLATE/1 VIEWon 01-28-2024 XR ABDOMEN /KUB/FLAT PLATE/1 VIEW [facility] Comment on above: Order Comment: Injur y/Trauma or Illness?:Illness/OtherHow long have you had these symptoms (acute/chronic)?:UnknownReason for exam?:small bore manipulatedHistory of cancer?:uSurgeries, chemotherapy, or radiation?:uType of Exam?:UnknownAdditional signs and symptoms?:small bore manipulated XR ABDOMEN /KUB/FLAT PLATE/1 VIEW Normal [facility] Comment on above: Order Comment: Injur y/Trauma or Illness?:Illness/OtherHow long have you had these symptoms (acute/chronic)?:UnknownReason for exam?:small bore NGHistory of cancer?:uSurgeries, chemotherapy, or radiation?:uType of Exam?:UnknownAdditional signs and symptoms?:small bore NG XR CHEST PA/APon 01-28-2024 XR CHEST PA/AP Normal [facility] Comment on above: Order Comment: Injur y/Trauma or Illness?:Illness/OtherHow long have you had these symptoms (acute/chronic)?:AcuteReason for exam?:ct/ptxHistory of cancer?:uSurgeries, chemotherapy, or radiation?:uType of Exam?:OngoingAdditional signs and symptoms?:- APTTon 01-27-2024 aPTT Coag (Bld) [Time] 60 s High 23-34 [facility] Comment on above: Order Comment: Thera peutic range for APTT's is 68 - 104 seconds Result Comment: Resu lts checked. Performed By: #### 4 5113 ####[facility] [address] [place] [address] Glenn Gudino M.D. [id number] APTT HEPARIN COVERAGEon 12-29 aPTT Coag (Bld) [Time] 86 s High 23-34 [facility] Comment on above: Order Comment: Thera peutic range for APTT's is 68 - 104 seconds Result Comment: Resu lts checked. Performed By: #### 4 6848 ####[facility] [address] [place] [address] Glenn Gudino M.D. [id number] aPTT Coag (Bld) [Time] 67 s High 23-34 [facility] Comment on above: Order Comment: Thera peutic range for APTT's is 68 - 104 seconds Performed By: #### 4 6890 ####[facility] [address] [place] [address] Glenn Gudino M.D. [id number] aPTT Coag (Bld) [Time] 71 s High 23-34 [facility] Comment on above: Order Comment: Thera peutic range for APTT's is 68 - 104 seconds Performed By: #### 4 6848 ####[facility] [address] [place] [address] 90018 Glenn Gudino M.D. [id number] BASIC METABOLIC PANEL 08-3 Anion gap [Moles/Vol] 14 mmol/L Normal 10-20 [facility] Comment on above: Order Comment: [facility] has implemented the eGFR calculation approach that does not have a coefficient for race that conforms to the NKF-ASN Task Force Recommendations. Performed By: #### 4 6124 ####[facility] [address] [place] [address] 15708 Glenn Gudino M.D. [id number] Calcium [Mass/Vol] 7.9 mg/dL Low 8.4-10.2 [facility] Comment on above: Order Comment: [facility] has implemented the eGFR calculation approach that does not have a coefficient for race that conforms to the NKF-ASN Task Force Recommendations. Performed By: #### 4 6124 ####[facility] [address] [place] [address] 26516 Glenn Gudino M.D. [id number] Chloride [Moles/Vol] 103 mmol/L Normal 98-108 [facility] Comment on above: Order Comment: [facility] has implemented the eGFR calculation approach that does not have a coefficient for race that conforms to the NKF-ASN Task Force Recommendations. Performed By: #### 4 6124 ####[facility] [address] [place] [address] 33179 Glenn Gudino M.D. [id number] Creatinine [Mass/Vol] 2.21 mg/dL High 0.60-1.10 [facility] Comment on above: Order Comment: [facility] has implemented the eGFR calculation approach that does not have a coefficient for race that conforms to the NKF-ASN Task Force Recommendations. Performed By: #### 4 6124 ####[facility] [address] [place] [address] 40643 Glenn Gudino M.D. [id number] EGFR 25 mL/min/1.73 m2 Low >=60 [facility] Comment on above: Order Comment: [facility] has implemented the eGFR calculation approach that does not have a coefficient for race that conforms to the NKF-ASN Task Force Recommendations. Result Comment: Joi mated GFR was calculated using the 2020 CKD-EPI creatinine equation. Performed By: #### 4 [id number] ####[facility] [address] [place] [address] 76349 Glnen Gudino M.D. [id number] Glucose [Mass/Vol] 145 mg/dL High 65-99 [facility] Comment on above: Order Comment: [facility] has implemented the eGFR calculation approach that does not have a coefficient for race that conforms to the NKF-ASN Task Force Recommendations. Performed By: #### 4 6124 ####[facility] [address] [place] [address] 69974 Glenn Gudino M.D. [id number] HCO3 (Bld) [Moles/Vol] 24 mmol/L Normal 21-32 [facility] Comment on above: Order Comment: [facility] has implemented the eGFR calculation approach that does not have a coefficient for race that conforms to the NKF-ASN Task Force Recommendations. Performed By: #### 4 6124 ####[facility] [address] [place] [address] 39244 Glenn Gudino M.D. [id number] Potassium [Moles/Vol] 4.7 mmol/L Normal 3.5-5.1 [facility] Comment on above: Order Comment: [facility] has implemented the eGFR calculation approach that does not have a coefficient for race that conforms to the NKF-ASN Task Force Recommendations. Performed By: #### 4 6124 ####[facility] [address] [place] [address] 33515 Glenn Gudino M.D. [id number] Sodium [Moles/Vol] 136 mmol/L Normal 135-145 [facility] Comment on above: Order Comment: [facility] has implemented the eGFR calculation approach that does not have a coefficient for race that conforms to the NKF-ASN Task Force Recommendations. Performed By: #### 4 6124 ####[facility] [address] [place] [address] 01502 Glenn Gudino M.D. [id number] Urea nitrogen [Mass/Vol] 30 mg/dL High 8-25 [facility] Comment on above: Order Comment: [facility] has implemented the eGFR calculation approach that does not have a coefficient for race that conforms to the NKF-ASN Task Force Recommendations. Performed By: #### 4 [id number] ####[facility] [address] [place] [address] 36594 Glenn Gudino M.D. [id number] Urea nitrogen/Creatinine [Mass ratio] 13.6 mg/mg Normal 10.0-20.0 [facility] Comment on above: Order Comment: [facility] has implemented the eGFR calculation approach that does not have a coefficient for race that conforms to the NKF-ASN Task Force Recommendations. Performed By: #### 4 6124 ####[facility] [address] [place] [address] 78097 Glenn Gudino M.D. [id number] Anion gap [Moles/Vol] 18 mmol/L Normal 10-20 [facility] Comment on above: Order Comment: [facility] has implemented the eGFR calculation approach that does not have a coefficient for race that conforms to the NKF-ASN Task Force Recommendations. Performed By: #### 4 6124 ####[facility] [address] [place] [address] 66665 Glenn Gudino M.D. [id number] Calcium [Mass/Vol] 7.4 mg/dL Low 8.4-10.2 [facility] Comment on above: Order Comment: [facility] has implemented the eGFR calculation approach that does not have a coefficient for race that conforms to the NKF-ASN Task Force Recommendations. Performed By: #### 4 6124 ####[facility] [address] [place], [place] [address] Glenn Gudino M.D. [id number] Chloride [Moles/Vol] 104 mmol/L Normal 98-108 [facility] Comment on above: Order Comment: [facility] has implemented the eGFR calculation approach that does not have a coefficient for race that conforms to the NKF-ASN Task Force Recommendations. Performed By: #### 4 6124 ####[facility] [address] [place], [place] [address] Glenn Gudino M.D. [id number] Creatinine [Mass/Vol] 2.71 mg/dL High 0.60-1.10 [facility] Comment on above: Order Comment: [facility] has implemented the eGFR calculation approach that does not have a coefficient for race that conforms to the NKF-ASN Task Force Recommendations. Performed By: #### 4 6124 ####[facility] [address] [place], [place] [address] Glenn Gudino M.D. [id number] EGFR 19 mL/min/1.73 m2 Low >=60 [facility] Comment on above: Order Comment: [facility] has implemented the eGFR calculation approach that does not have a coefficient for race that conforms to the NKF-ASN Task Force Recommendations. Result Comment: Joi mated GFR was calculated using the 2020 CKD-EPI creatinine equation. Performed By: #### 4 6124 ####[facility] [address] [place], [place] [address] Glenn Gudino M.D. [id number] Glucose [Mass/Vol] 89 mg/dL Normal 65-99 [facility] Comment on above: Order Comment: [facility] has implemented the eGFR calculation approach that does not have a coefficient for race that conforms to the NKF-ASN Task Force Recommendations. Performed By: #### 4 6124 ####[facility] [address] [place] [address] 80087 Glenn Gudino M.D. [id number] HCO3 (Bld) [Moles/Vol] 22 mmol/L Normal 21-32 [facility] Comment on above: Order Comment: [facility] has implemented the eGFR calculation approach that does not have a coefficient for race that conforms to the NKF-ASN Task Force Recommendations. Performed By: #### 4 6124 ####[facility] [address] [place], [place] [address] Glenn Gudino M.D. [id number] Potassium [Moles/Vol] 5.0 mmol/L Normal 3.5-5.1 [facility] Comment on above: Order Comment: [facility] has implemented the eGFR calculation approach that does not have a coefficient for race that conforms to the NKF-ASN Task Force Recommendations. Performed By: #### 4 6124 ####[facility] [address] [place] [address] 34221 Glenn Gudino M.D. [id number] Sodium [Moles/Vol] 139 mmol/L Normal 135-145 [facility] Comment on above: Order Comment: [facility] has implemented the eGFR calculation approach that does not have a coefficient for race that conforms to the NKF-ASN Task Force Recommendations. Performed By: #### 4 6158 ####[facility] [address] [place], [place] [address] Glenn Gudino M.D. [id number] Urea nitrogen [Mass/Vol] 37 mg/dL High 8-25 [facility] Comment on above: Order Comment: [facility] has implemented the eGFR calculation approach that does not have a coefficient for race that conforms to the NKF-ASN Task Force Recommendations. Performed By: #### 4 6124 ####[facility] [address] [place], [place] [address] Glenn Gudino M.D. [id number] Urea nitrogen/Creatinine [Mass ratio] 13.7 mg/mg Normal 10.0-20.0 [facility] Comment on above: Order Comment: [facility] has implemented the eGFR calculation approach that does not have a coefficient for race that conforms to the NKF-ASN Task Force Recommendations. Performed By: #### 4 6124 ####[facility] [address] [place], [place] [address] Glenn Gudino M.D. [id number] CALCIUM, IONIZEDon 4 CALCIUM IONIZED 4.6 mg/dL Normal 4.5-5.3 [facility] Comment on above: Order Comment: Serum , non-CRRT source. Performed By: #### 4 5190 ####[facility] [address] [place], [place] [address] Glenn Gudino M.D. [id number] CALCIUM IONIZED 4.4 mg/dL Low 4.5-5.3 [facility] Comment on above: Order Comment: Serum , non-CRRT source. Performed By: #### 4 5190 ####[facility] [address] [place], [place] [address] Glenn Gudino M.D. [id number] CALCIUM IONIZED 4.4 mg/dL Low 4.5-5.3 [facility] Comment on above: Order Comment: Serum , non-CRRT source. Performed By: #### 4 5190 ####[facility] [address] [place], [place] [address] Glenn Gudino M.D. [id number] CALCIUM IONIZED 4.4 mg/dL Low 4.5-5.3 [facility] Comment on above: Order Comment: Serum , non-CRRT source. Performed By: #### 4 5190 ####[facility] [address] [place], [place] [address] Glenn Gudino M.D. [id number] CBCon 01-27-2024 AUTO NRBC 0.0 % Normal [facility] Comment on above: Performed By: #### 4 [id number] ####[facility] [address] [place] [address] Glenn Gudino M.D. [id number] AUTO NRBC ABS COUNT 0.00 K/mcL Normal 0.00-0.00 [facility] Comment on above: Performed By: #### 4 [id number] ####[facility] [address] [place], [place] [address] Glenn Gudino M.D. [id number] Erythrocyte distribution width (RBC) [Ratio] 16.9 % High 11.6-14.8 [facility] Comment on above: Performed By: #### 4 5218 ####[facility] [address] [place], [place] [address] Glenn Gudino M.D. [id number] Hematocrit (Bld) [Volume fraction] 29.2 % Low 36.0-46.0 [facility] Comment on above: Performed By: #### 4 5218 ####[facility] [address] [place], [place] [address] Glenn Gudino M.D. [id number] Hemoglobin (Bld) [Mass/Vol] 9.7 g/dL Low 12.0-16.0 [facility] Comment on above: Performed By: #### 4 5218 ####[facility] [address] [place], [place] [address] Glenn Gudino M.D. [id number] MCH (RBC) [Entitic mass] 29.5 pg Normal 26.0-34.0 [facility] Comment on above: Performed By: #### 4 [id number] ####[facility] [address] [place] [address] 05547 Glenn Gudino M.D. [id number] MCV (RBC) [Entitic vol] 88.8 fL Normal 80.0-100.0 [facility] Comment on above: Performed By: #### 4 [id number] ####[facility] [address] [place] [address] Glenn Gudino M.D. [id number] MEAN CORPUSCULAR HEMOGLOBIN CONC 33.2 g/dL Normal 31.0-37.0 [facility] Comment on above: Performed By: #### 4 [id number] ####[facility] [address] [place], [place] [address] Glenn Gudino M.D. [id number] Platelet mean volume (Bld) [Entitic vol] 11.3 fL Normal 9.4-12.4 [facility] Comment on above: Performed By: #### 4 [id number] ####[facility] [address] [place], [place] [address] Glenn Gudino M.D. [id number] Platelets (Bld) [#/Vol] 106 10*3/uL Low 150-400 [facility] Comment on above: Result Comment: Repe ated verified Performed By: #### 4 5218 ####[facility] [address] [place], [place] [address] Glenn Gudino M.D. [id number] RBC (Bld) [#/Vol] 3.29 10*6/uL Low 4.00-5.20 [facility] Comment on above: Performed By: #### 4 [id number] ####[facility] [address] [place], [place] [address] Glenn Gudino M.D. [id number] WBC (Bld) [#/Vol] 17.82 10*3/uL High 4.50-11.00 [facility] Comment on above: Performed By: #### 4 [id number] ####[facility] [address] [place] [address] Glenn Gudino M.D. [id number] MAGNESIUM LEVELon 01-27-2024 Magnesium [Mass/Vol] 2.2 mg/dL Normal 1.6-2.4 [facility] Comment on above: Performed By: #### 4 6109 ####[facility] [address] [place] [address] Glenn Gudino M.D. [id number] Magnesium [Mass/Vol] 2.2 mg/dL Normal 1.6-2.4 [facility] Comment on above: Performed By: #### 4 6109 ####[facility] [address] [place] [address] Glenn Gudino M.D. [id number] Magnesium [Mass/Vol] 2.1 mg/dL Normal 1.6-2.4 [facility] Comment on above: Performed By: #### 4 6109 ####[facility] [address] [place] [address] Glenn Gudino M.D. [id number] Magnesium [Mass/Vol] 2.2 mg/dL Normal 1.6-2.4 [facility] Comment on above: Performed By: #### 4 6109 ####[facility] [address] [place] [address] Glenn Gudino M.D. [id number] POC ARTERIAL BLOOD GAS PANEL -[facility] 01-27-2024 BASE EXCESS, ARTERIAL -0.1 Normal -2.0-2.0 [facility] Comment on above: Performed By: #### 4 8716 ####[facility] [address] [place] [address] [id number] RMOC CALCIUM IONIZED 4.4 mg/dL Low 4.5-5.3 [facility] Comment on above: Performed By: #### 4 8716 ####[facility] [address] [place] [address] [id number] [facility] CARBOXYHEMOGLOBIN 2.0 % of total Hb High <=1.5 [facility] Comment on above: Result Comment: Refe rence Ranges:Suburban Non-smokers: <1.5%Smokers: 1.5-5.0%Heavy Smokers: 5.0-9.0% Performed By: #### 4 8716 ####[facility] [address] [place] [address] [id number] [facility] Chloride [Moles/Vol] 103 mmol/L Normal 98-108 [facility] Comment on above: Performed By: #### 4 8716 ####[facility] [address] [place] [address] [id number] [facility] Glucose [Mass/Vol] 88 mg/dL Normal 65-99 [facility] Comment on above: Performed By: #### 4 8716 ####[facility] [address] [place] [address] [id number] [facility] HCO3 (Bld) [Moles/Vol] 24.5 mmol/L Normal 22.0-26.0 [facility] Comment on above: Performed By: #### 4 8716 ####[facility] [address] [place] [address] [id number] [facility] Hematocrit (Bld) [Volume fraction] 29.9 % Low 36.0-46.0 [facility] Comment on above: Performed By: #### 4 7216 ####[facility] [address] [place] [address] [id number] [facility] Hemoglobin (Bld) [Mass/Vol] 9.8 g/dL Low 12.0-16.0 [facility] Comment on above: Performed By: #### 4 3984 ####[facility] [address] [place] [address] [id number] [facility] LACTIC ACID, WHOLE BLOOD 1.1 mmol/L Normal 0.6-2.0 [facility] Comment on above: Performed By: #### 4 8716 ####[facility] [address] [place] [address] [id number] [facility] LITER FLOW 3 Normal [facility] Comment on above: Performed By: #### 4 8716 ####[facility] [address] [place] [address] [id number] [facility] METHEMOGLOBIN < Normal 0.0-2.0 [facility] Comment on above: Performed By: #### 4 5016 ####[facility] [address] [place] [address] [id number] [facility] O2HB 92.7 % Low 94.0-98.0 [facility] Comment on above: Performed By: #### 4 0616 ####[facility] [address] [place] [address] [id number] [facility] Oxygen saturation in Blood 94.8 % Normal 92.0-99.0 [facility] Comment on above: Performed By: #### 4 1416 ####[facility] [address] [place] [address] [id number] [facility] PCO2 ARTERIAL 39.0 mm Hg Normal 35.0-45.0 [facility] Comment on above: Performed By: #### 4 2716 ####[facility] [address] [place] [address] [id number] [facility] PH ARTERIAL 7.41 Normal 7.35-7.45 [facility] Comment on above: Performed By: #### 4 9016 ####[facility] [address] [place] [address] [id number] [facility] PO2 ARTERIAL 72 mm Hg Low 80-100 [facility] Comment on above: Performed By: #### 4 9949 ####[facility] [address] [place] [address] [id number] [facility] Potassium [Moles/Vol] 4.6 mmol/L Normal 3.5-5.1 [facility] Comment on above: Performed By: #### 4 8716 ####[facility] [address] [place] [address] [id number] [facility] Sodium [Moles/Vol] 134 mmol/L Low 135-145 [facility] Comment on above: Performed By: #### 4 8716 ####[facility] [address] [place] [address] [id number] [facility] POC GLUCOSE [facility] 024 Glucose [Mass/Vol] 111 mg/dL High - [facility] Comment on above: Performed By: #### 4 6268 ####[facility] [address] [place] [address] [id number] [facility] Glucose [Mass/Vol] 155 mg/dL High 65- [facility] Comment on above: Performed By: #### 4 3156 ####[facility] [address] [place] [address] [id number] [facility] Glucose [Mass/Vol] 132 mg/dL High 65- [facility] Comment on above: Performed By: #### 4 9439 ####[facility] [address] [place] [address] [id number] [facility] Glucose [Mass/Vol] 114 mg/dL High 65- [facility] Comment on above: Performed By: #### 4 5276 ####[facility] [address] [place] [address] [id number] [facility] Glucose [Mass/Vol] 109 mg/dL High 65-[address] [place] [address] Comment on above: Performed By: #### 4 5590 ####[facility] [address] [place] [address] [id number] [facility] Glucose [Mass/Vol] 96 mg/dL Normal 65-99 [facility] Comment on above: Performed By: #### 4 6932 ####[facility] [address] [place] [address] [id number] [facility] Glucose [Mass/Vol] 71 mg/dL Normal 65-99 [facility] Comment on above: Performed By: #### 4 6932 ####[facility] [address] [place] [address] [id number] [facility] RENAL FUNCTION PANELon 01-26 Albumin [Mass/Vol] 1.6 g/dL Low 3.2-5.2 [facility] Comment on above: Order Comment: [facility] has implemented the eGFR calculation approach that does not have a coefficient for race that conforms to the NKF-ASN Task Force Recommendations. Performed By: #### 4 6449 ####[facility] [address] [place], [place] [address] Glenn Gudino M.D. [id number] Anion gap [Moles/Vol] 13 mmol/L Normal 10-20 [facility] Comment on above: Order Comment: [facility] has implemented the eGFR calculation approach that does not have a coefficient for race that conforms to the NKF-ASN Task Force Recommendations. Performed By: #### 4 6449 ####[facility] [address] [place], [place] [address] Glenn Gudino M.D. [id number] Calcium [Mass/Vol] 7.7 mg/dL Low 8.4-10.2 [facility] Comment on above: Order Comment: [facility] has implemented the eGFR calculation approach that does not have a coefficient for race that conforms to the NKF-ASN Task Force Recommendations. Performed By: #### 4 6449 ####[facility] [address] [place] [address] 76834 Glenn Gudino M.D. [id number] Chloride [Moles/Vol] 103 mmol/L Normal 98-108 [facility] Comment on above: Order Comment: [facility] has implemented the eGFR calculation approach that does not have a coefficient for race that conforms to the NKF-ASN Task Force Recommendations. Performed By: #### 4 6449 ####[facility] [address] [place] [address] 44249 Glenn Gudino M.D. [id number] Creatinine [Mass/Vol] 2.09 mg/dL High 0.60-1.10 [facility] Comment on above: Order Comment: [facility] has implemented the eGFR calculation approach that does not have a coefficient for race that conforms to the NKF-ASN Task Force Recommendations. Performed By: #### 4 6449 ####[facility] [address] [place] [address] 13625 Glenn Gudino M.D. [id number] EGFR 27 mL/min/1.73 m2 Low >=60 [facility] Comment on above: Order Comment: [facility] has implemented the eGFR calculation approach that does not have a coefficient for race that conforms to the NKF-ASN Task Force Recommendations. Result Comment: Joi mated GFR was calculated using the 2020 CKD-EPI creatinine equation. Performed By: #### 4 6449 ####[facility] [address] [place] [address] 02474 Glenn Gudino M.D. [id number] Glucose [Mass/Vol] 121 mg/dL High 65-99 [facility] Comment on above: Order Comment: [facility] has implemented the eGFR calculation approach that does not have a coefficient for race that conforms to the NKF-ASN Task Force Recommendations. Performed By: #### 4 6449 ####[facility] [address] [place] [address] 20256 Glenn Gudino M.D. [id number] HCO3 (Bld) [Moles/Vol] 24 mmol/L Normal 21-32 [facility] Comment on above: Order Comment: [facility] has implemented the eGFR calculation approach that does not have a coefficient for race that conforms to the NKF-ASN Task Force Recommendations. Performed By: #### 4 6449 ####[facility] [address] [place] [address] 85806 Glenn Gudino M.D. [id number] Phosphate [Mass/Vol] 4.0 mg/dL Normal 2.8-4.1 [facility] Comment on above: Order Comment: [facility] has implemented the eGFR calculation approach that does not have a coefficient for race that conforms to the NKF-ASN Task Force Recommendations. Performed By: #### 4 6449 ####[facility] [address] [place] [address] 24245 Glenn Gudino M.D. [id number] Potassium [Moles/Vol] 4.7 mmol/L Normal 3.5-5.1 [facility] Comment on above: Order Comment: [facility] has implemented the eGFR calculation approach that does not have a coefficient for race that conforms to the NKF-ASN Task Force Recommendations. Performed By: #### 4 6449 ####[facility] [address] [place] [address] 95969 Glenn Gudino M.D. [id number] Sodium [Moles/Vol] 135 mmol/L Normal 135-145 [facility] Comment on above: Order Comment: [facility] has implemented the eGFR calculation approach that does not have a coefficient for race that conforms to the NKF-ASN Task Force Recommendations. Performed By: #### 4 6449 ####[facility] [address] [place] [address] 49016 Glenn Gudino M.D. [id number] Urea nitrogen [Mass/Vol] 29 mg/dL High 8-25 [facility] Comment on above: Order Comment: [facility] has implemented the eGFR calculation approach that does not have a coefficient for race that conforms to the NKF-ASN Task Force Recommendations. Performed By: #### 4 6449 ####[facility] [address] [place], [place] [address] Glenn Gudino M.D. [id number] Urea nitrogen/Creatinine [Mass ratio] 13.9 mg/mg Normal 10.0-20.0 [facility] Comment on above: Order Comment: [facility] has implemented the eGFR calculation approach that does not have a coefficient for race that conforms to the NKF-ASN Task Force Recommendations. Performed By: #### 4 6449 ####[facility] [address] [place] [address] 40216 Glenn Gudino M.D. [id number] Albumin [Mass/Vol] 1.7 g/dL Low 3.2-5.2 [facility] Comment on above: Order Comment: [facility] has implemented the eGFR calculation approach that does not have a coefficient for race that conforms to the NKF-ASN Task Force Recommendations. Performed By: #### 4 6449 ####[facility] [address] [place], [place] [address] Glenn uGdino M.D. [id number] Anion gap [Moles/Vol] 15 mmol/L Normal 10-20 [facility] Comment on above: Order Comment: [facility] has implemented the eGFR calculation approach that does not have a coefficient for race that conforms to the NKF-ASN Task Force Recommendations. Performed By: #### 4 6449 ####[facility] [address] [place] [address] 48424 Glenn Gudino M.D. [id number] Calcium [Mass/Vol] 7.7 mg/dL Low 8.4-10.2 [facility] Comment on above: Order Comment: [facility] has implemented the eGFR calculation approach that does not have a coefficient for race that conforms to the NKF-ASN Task Force Recommendations. Performed By: #### 4 6449 ####[facility] [address] [place] [address] 75806 Glenn Gudino M.D. [id number] Chloride [Moles/Vol] 103 mmol/L Normal 98-108 [facility] Comment on above: Order Comment: [facility] has implemented the eGFR calculation approach that does not have a coefficient for race that conforms to the NKF-ASN Task Force Recommendations. Performed By: #### 4 6449 ####[facility] [address] [place] [address] 56178 Glenn Gudino M.D. [id number] Creatinine [Mass/Vol] 2.25 mg/dL High 0.60-1.10 [facility] Comment on above: Order Comment: [facility] Services has implemented the eGFR calculation approach that does not have a coefficient for race that conforms to the NKF-ASN Task Force Recommendations. Performed By: #### 4 [id number] ####[facility] [address] [place], [place] [id number] Glenn Gudino M.D. [id number] EGFR 24 mL/min/1.73 m2 Low >=60 [facility] Comment on above: Order Comment: [facility] has implemented the eGFR calculation approach that does not have a coefficient for race that conforms to the NKF-ASN Task Force Recommendations. Result Comment: Joi mated GFR was calculated using the 2020 CKD-EPI creatinine equation. Performed By: #### 4 [id number] ####[facility] [address] [place] [address] 74498 Glenn Gudino M.D. [id number] Glucose [Mass/Vol] 122 mg/dL High 65-99 [facility] Comment on above: Order Comment: [facility] has implemented the eGFR calculation approach that does not have a coefficient for race that conforms to the NKF-ASN Task Force Recommendations. Performed By: #### 4 [id number] ####[facility] [address] [place] [address] 68487 Glenn Gudino M.D. [id number] HCO3 (Bld) [Moles/Vol] 24 mmol/L Normal 21-32 [facility] Comment on above: Order Comment: [facility] has implemented the eGFR calculation approach that does not have a coefficient for race that conforms to the NKF-ASN Task Force Recommendations. Performed By: #### 4 [id number] ####[facility] [address] [place] [address] 91694 Glenn Gudino M.D. [id number] Phosphate [Mass/Vol] 4.7 mg/dL High 2.8-4.1 [facility] Comment on above: Order Comment: [facility] has implemented the eGFR calculation approach that does not have a coefficient for race that conforms to the NKF-ASN Task Force Recommendations. Performed By: #### 4 [id number] ####[facility] [address] [place] [address] 40412 Glenn Gudino M.D. [id number] Potassium [Moles/Vol] 5.0 mmol/L Normal 3.5-5.1 [facility] Comment on above: Order Comment: [facility] has implemented the eGFR calculation approach that does not have a coefficient for race that conforms to the NKF-ASN Task Force Recommendations. Performed By: #### 4 [id number] ####[facility] [address] [place] [address] 47941 Glenn Gudino M.D. [id number] Sodium [Moles/Vol] 137 mmol/L Normal 135-145 [facility] Comment on above: Order Comment: [facility] has implemented the eGFR calculation approach that does not have a coefficient for race that conforms to the NKF-ASN Task Force Recommendations. Performed By: #### 4 [id number] ####[facility] [address] [place] [address] 94811 Glenn Gudino M.D. [id number] Urea nitrogen [Mass/Vol] 30 mg/dL High 8-25 [facility] Comment on above: Order Comment: [facility] has implemented the eGFR calculation approach that does not have a coefficient for race that conforms to the NKF-ASN Task Force Recommendations. Performed By: #### 4 [id number] ####[facility] [address] [place] [address] 40664 Glenn Gudino M.D. [id number] Urea nitrogen/Creatinine [Mass ratio] 13.3 mg/mg Normal 10.0-20.0 [facility] Comment on above: Order Comment: [facility] has implemented the eGFR calculation approach that does not have a coefficient for race that conforms to the NKF-ASN Task Force Recommendations. Performed By: #### 4 [id number] ####[facility] [address] [place] [address] 28443 Glenn Gudino M.D. [id number] Albumin [Mass/Vol] 1.8 g/dL Low 3.2-5.2 [facility] Comment on above: Order Comment: [facility] has implemented the eGFR calculation approach that does not have a coefficient for race that conforms to the NKF-ASN Task Force Recommendations. Performed By: #### 4 [id number] ####[facility] [address] [place] [address] 90600 Glenn Gudino M.D. [id number] Anion gap [Moles/Vol] 15 mmol/L Normal 10-20 [facility] Comment on above: Order Comment: [facility] has implemented the eGFR calculation approach that does not have a coefficient for race that conforms to the NKF-ASN Task Force Recommendations. Performed By: #### 4 [id number] ####[facility] [address] [place] [address] 04907 Glenn Gudino M.D. [id number] Calcium [Mass/Vol] 7.7 mg/dL Low 8.4-10.2 [facility] Comment on above: Order Comment: [facility] has implemented the eGFR calculation approach that does not have a coefficient for race that conforms to the NKF-ASN Task Force Recommendations. Performed By: #### 4 [id number] ####[facility] [address] [place] [address] 12185 Glenn Gudino M.D. [id number] Chloride [Moles/Vol] 102 mmol/L Normal 98-108 [facility] Comment on above: Order Comment: [facility] has implemented the eGFR calculation approach that does not have a coefficient for race that conforms to the NKF-ASN Task Force Recommendations. Performed By: #### 4 [id number] ####[facility] [address] [place], [place] [address] Glenn Gudino M.D. [id number] Creatinine [Mass/Vol] 2.42 mg/dL High 0.60-1.10 [facility] Comment on above: Order Comment: [facility] has implemented the eGFR calculation approach that does not have a coefficient for race that conforms to the NKF-ASN Task Force Recommendations. Performed By: #### 4 [id number] ####[facility] [address] [place], [place] [address] Glenn Gudino M.D. [id number] EGFR 22 mL/min/1.73 m2 Low >=60 [facility] Comment on above: Order Comment: [facility] has implemented the eGFR calculation approach that does not have a coefficient for race that conforms to the NKF-ASN Task Force Recommendations. Result Comment: Joi mated GFR was calculated using the 2020 CKD-EPI creatinine equation. Performed By: #### 4 [id number] ####[facility] [address] [place], [place] [address] Glenn Gudino M.D. [id number] Glucose [Mass/Vol] 103 mg/dL High 65-99 [facility] Comment on above: Order Comment: [facility] has implemented the eGFR calculation approach that does not have a coefficient for race that conforms to the NKF-ASN Task Force Recommendations. Performed By: #### 4 [id number] ####[facility] [address] [place] [address] 05873 Glenn Gudino M.D. [id number] HCO3 (Bld) [Moles/Vol] 24 mmol/L Normal 21-32 [facility] Comment on above: Order Comment: [facility] has implemented the eGFR calculation approach that does not have a coefficient for race that conforms to the NKF-ASN Task Force Recommendations. Performed By: #### 4 6449 ####[facility] [address] [place] [address] Glenn Gudino M.D. [id number] Phosphate [Mass/Vol] 5.4 mg/dL High 2.8-4.1 [facility] Comment on above: Order Comment: [facility] has implemented the eGFR calculation approach that does not have a coefficient for race that conforms to the NKF-ASN Task Force Recommendations. Performed By: #### 4 [id number] ####[facility] [address] [place] [address] Glenn Gudino M.D. [id number] Potassium [Moles/Vol] 4.7 mmol/L Normal 3.5-5.1 [facility] Comment on above: Order Comment: [facility] has implemented the eGFR calculation approach that does not have a coefficient for race that conforms to the NKF-ASN Task Force Recommendations. Performed By: #### 4 [id number] ####[facility] [address] [place] [address] Gelnn Gudino M.D. [id number] Sodium [Moles/Vol] 136 mmol/L Normal 135-145 [facility] Comment on above: Order Comment: [facility] has implemented the eGFR calculation approach that does not have a coefficient for race that conforms to the NKF-ASN Task Force Recommendations. Performed By: #### 4 [id number] ####[facility] [address] [place], [place] [address] Glenn Gudino M.D. [id number] Urea nitrogen [Mass/Vol] 33 mg/dL High 8-25 [facility] Comment on above: Order Comment: [facility] has implemented the eGFR calculation approach that does not have a coefficient for race that conforms to the NKF-ASN Task Force Recommendations. Performed By: #### 4 [id number] ####[facility] [address] [place] [address] 89824 Glenn Gudino M.D. [id number] Urea nitrogen/Creatinine [Mass ratio] 13.6 mg/mg Normal 10.0-20.0 [facility] Comment on above: Order Comment: [facility] has implemented the eGFR calculation approach that does not have a coefficient for race that conforms to the NKF-ASN Task Force Recommendations. Performed By: #### 4 6449 ####[facility] [address] [place] [address] 37913 Glenn Gudino M.D. [id number] Albumin [Mass/Vol] 1.6 g/dL Low 3.2-5.2 [facility] Comment on above: Order Comment: [facility] has implemented the eGFR calculation approach that does not have a coefficient for race that conforms to the NKF-ASN Task Force Recommendations. Performed By: #### 4 6449 ####[facility] [address] [place] [address] 20417 Glenn Gudino M.D. [id number] Anion gap [Moles/Vol] 19 mmol/L Normal 10-20 [facility] Comment on above: Order Comment: [facility] has implemented the eGFR calculation approach that does not have a coefficient for race that conforms to the NKF-ASN Task Force Recommendations. Performed By: #### 4 6449 ####[facility] [address] [place] [address] 26666 Glenn Gudino M.D. [id number] Calcium [Mass/Vol] 7.5 mg/dL Low 8.4-10.2 [facility] Comment on above: Order Comment: [facility] has implemented the eGFR calculation approach that does not have a coefficient for race that conforms to the NKF-ASN Task Force Recommendations. Performed By: #### 4 6449 ####[facility] [address] [place] [address] 67468 Glenn Gudino M.D. [id number] Chloride [Moles/Vol] 103 mmol/L Normal 98-108 [facility] Comment on above: Order Comment: [facility] has implemented the eGFR calculation approach that does not have a coefficient for race that conforms to the NKF-ASN Task Force Recommendations. Performed By: #### 4 [id number] ####[facility] [address] [place] [address] 22900 Glenn Gudino M.D. [id number] Creatinine [Mass/Vol] 2.60 mg/dL High 0.60-1.10 [facility] Comment on above: Order Comment: [facility] has implemented the eGFR calculation approach that does not have a coefficient for race that conforms to the NKF-ASN Task Force Recommendations. Performed By: #### 4 6449 ####[facility] [address] [place] [address] 67381 Glenn Gudino M.D. [id number] EGFR 20 mL/min/1.73 m2 Low >=60 [facility] Comment on above: Order Comment: [facility] has implemented the eGFR calculation approach that does not have a coefficient for race that conforms to the NKF-ASN Task Force Recommendations. Result Comment: Joi mated GFR was calculated using the 2020 CKD-EPI creatinine equation. Performed By: #### 4 [id number] ####[facility] [address] [place] [address] 64729 Glenn Gudino M.D. [id number] Glucose [Mass/Vol] 89 mg/dL Normal 65-99 [facility] Comment on above: Order Comment: [facility] has implemented the eGFR calculation approach that does not have a coefficient for race that conforms to the NKF-ASN Task Force Recommendations. Performed By: #### 4 [id number] ####[facility] [address] [place] [address] 95849 Glenn Gudino M.D. [id number] HCO3 (Bld) [Moles/Vol] 20 mmol/L Low 21-32 [facility] Comment on above: Order Comment: [facility] has implemented the eGFR calculation approach that does not have a coefficient for race that conforms to the NKF-ASN Task Force Recommendations. Performed By: #### 4 [id number] ####[facility] [address] [place] [address] Glenn Gudino M.D. [id number] Phosphate [Mass/Vol] 6.0 mg/dL High 2.8-4.1 [facility] Comment on above: Order Comment: [facility] has implemented the eGFR calculation approach that does not have a coefficient for race that conforms to the NKF-ASN Task Force Recommendations. Performed By: #### 4 [id number] ####[facility] [address] [place] [address] Glenn Gudino M.D. [id number] Potassium [Moles/Vol] 5.0 mmol/L Normal 3.5-5.1 [facility] Comment on above: Order Comment: [facility] has implemented the eGFR calculation approach that does not have a coefficient for race that conforms to the NKF-ASN Task Force Recommendations. Result Comment: Slig htly Hemolyzed Performed By: #### 4 [id number] ####[facility] [address] [place] [address] Glenn Gudino M.D. [id number] Sodium [Moles/Vol] 137 mmol/L Normal 135-145 [facility] Comment on above: Order Comment: [facility] has implemented the eGFR calculation approach that does not have a coefficient for race that conforms to the NKF-ASN Task Force Recommendations. Performed By: #### 4 [id number] ####[facility] [address] [place], [place] [address] Glenn Gudino M.D. [id number] Urea nitrogen [Mass/Vol] 34 mg/dL High 8-25 [facility] Comment on above: Order Comment: [facility] has implemented the eGFR calculation approach that does not have a coefficient for race that conforms to the NKF-ASN Task Force Recommendations. Performed By: #### 4 [id number] ####[facility] [address] [place] [address] 15446 Glenn Gudino M.D. [id number] Urea nitrogen/Creatinine [Mass ratio] 13.1 mg/mg Normal 10.0-20.0 [facility] Comment on above: Order Comment: [facility] has implemented the eGFR calculation approach that does not have a coefficient for race that conforms to the NKF-ASN Task Force Recommendations. Performed By: #### 4 [id number] ####[facility] [address] [place] [address] 33637 Glenn Gudino M.D. [id number] XR CHEST PA/APon 01-27-2024 XR CHEST PA/AP Normal [facility] Comment on above: Order Comment: Injur y/Trauma or Illness?:Illness/OtherHow long have you had these symptoms (acute/chronic)?:UnknownReason for exam?:Chest tube placement, pneumothoraxHistory of cancer?:uSurgeries, chemotherapy, or radiation?:uType of Exam?:UnknownAdditional signs and symptoms?:Chest tube placement, pneumothorax XR CHEST PA/AP Normal [facility] Comment on above: Order Comment: Injur y/Trauma or Illness?:Illness/OtherHow long have you had these symptoms (acute/chronic)?:UnknownReason for exam?:hypoxia, L pneumothorax, effusionHistory of cancer?:uSurgeries, chemotherapy, or radiation?:uType of Exam?:OngoingAdditional signs and symptoms?:- APTT HEPARIN COVERAGEon 12-29 aPTT Coag (Bld) [Time] 134 s Off scale high 23-34 [facility] Comment on above: Order Comment: Thera peutic range for APTT's is 68 - 104 seconds Result Comment: Resu lts checked. Performed By: #### 4 [id number] ####[facility] [address] [place] [address] 61205 Glenn Gudino M.D. [id number] aPTT Coag (Bld) [Time] 105 s High 23-34 [facility] Comment on above: Order Comment: Thera peutic range for APTT's is 68 - 104 seconds Result Comment: Resu lts checked. Performed By: #### 4 [id number] ####[facility] [address] [place] [address] 87780 Glenn Gudino M.D. [id number] BASIC METABOLIC PANEL 12-29 Anion gap [Moles/Vol] 18 mmol/L Normal 10-20 [facility] Comment on above: Order Comment: [facility] has implemented the eGFR calculation approach that does not have a coefficient for race that conforms to the NKF-ASN Task Force Recommendations. Performed By: #### 4 [id number] ####[facility] [address] [place] [address] 10099 Glenn Gudino M.D. [id number] Calcium [Mass/Vol] 7.5 mg/dL Low 8.4-10.2 [facility] Comment on above: Order Comment: [facility] has implemented the eGFR calculation approach that does not have a coefficient for race that conforms to the NKF-ASN Task Force Recommendations. Performed By: #### 4 [id number] ####[facility] [address] [place] [address] 01679 Glenn Gudino M.D. [id number] Chloride [Moles/Vol] 105 mmol/L Normal 98-108 [facility] Comment on above: Order Comment: [facility] has implemented the eGFR calculation approach that does not have a coefficient for race that conforms to the NKF-ASN Task Force Recommendations. Performed By: #### 4 [id number] ####[facility] [address] [place], [place] [address] Glenn Gudino M.D. [id number] Creatinine [Mass/Vol] 3.06 mg/dL High 0.60-1.10 [facility] Comment on above: Order Comment: [facility] has implemented the eGFR calculation approach that does not have a coefficient for race that conforms to the NKF-ASN Task Force Recommendations. Performed By: #### 4 [id number] ####[facility] [address] [place] [address] 36359 Glenn Gudino M.D. [id number] EGFR 17 mL/min/1.73 m2 Low >=60 [facility] Comment on above: Order Comment: [facility] has implemented the eGFR calculation approach that does not have a coefficient for race that conforms to the NKF-ASN Task Force Recommendations. Result Comment: Joi mated GFR was calculated using the 2020 CKD-EPI creatinine equation. Performed By: #### 4 [id number] ####[facility] [address] [place], [place] [address] Glenn Gudino M.D. [id number] Glucose [Mass/Vol] 69 mg/dL Normal 65-99 [facility] Comment on above: Order Comment: [facility] has implemented the eGFR calculation approach that does not have a coefficient for race that conforms to the NKF-ASN Task Force Recommendations. Performed By: #### 4 [id number] ####[facility] [address] [place] [address] 74309 Glenn Gudino M.D. [id number] HCO3 (Bld) [Moles/Vol] 19 mmol/L Low 21-32 [facility] Comment on above: Order Comment: [facility] has implemented the eGFR calculation approach that does not have a coefficient for race that conforms to the NKF-ASN Task Force Recommendations. Performed By: #### 4 [id number] ####[facility] [address] [place] [address] 84600 Glenn Gudino M.D. [id number] Potassium [Moles/Vol] 4.9 mmol/L Normal 3.5-5.1 [facility] Comment on above: Order Comment: [facility] has implemented the eGFR calculation approach that does not have a coefficient for race that conforms to the NKF-ASN Task Force Recommendations. Result Comment: Slig htly Hemolyzed Performed By: #### 4 [id number] ####[facility] [address] [place], [place] [address] Glenn Gudino M.D. [id number] Sodium [Moles/Vol] 137 mmol/L Normal 135-145 [facility] Comment on above: Order Comment: [facility] has implemented the eGFR calculation approach that does not have a coefficient for race that conforms to the NKF-ASN Task Force Recommendations. Performed By: #### 4 [id number] ####[facility] [address] [place], [place] [address] Glenn Gudino M.D. [id number] Urea nitrogen [Mass/Vol] 39 mg/dL High 8-25 [facility] Comment on above: Order Comment: [facility] has implemented the eGFR calculation approach that does not have a coefficient for race that conforms to the NKF-ASN Task Force Recommendations. Performed By: #### 4 [id number] ####[facility] [address] [place] [address] 10680 Glenn Gudino M.D. [id number] Urea nitrogen/Creatinine [Mass ratio] 12.7 mg/mg Normal 10.0-20.0 [facility] Comment on above: Order Comment: [facility] has implemented the eGFR calculation approach that does not have a coefficient for race that conforms to the NKF-ASN Task Force Recommendations. Performed By: #### 4 [id number] ####[facility] [address] [place] [address] 75369 Glenn Gudino M.D. [id number] Anion gap [Moles/Vol] 17 mmol/L Normal 10-20 [facility] Comment on above: Order Comment: [facility] has implemented the eGFR calculation approach that does not have a coefficient for race that conforms to the NKF-ASN Task Force Recommendations. Performed By: #### 4 [id number] ####[facility] [address] [place] [address] 69434 Glenn Gudino M.D. [id number] Calcium [Mass/Vol] 7.6 mg/dL Low 8.4-10.2 [facility] Comment on above: Order Comment: [facility] has implemented the eGFR calculation approach that does not have a coefficient for race that conforms to the NKF-ASN Task Force Recommendations. Performed By: #### 4 [id number] ####[facility] [address] [place] [address] 67742 Glenn Gudino M.D. [id number] Chloride [Moles/Vol] 106 mmol/L Normal 98-108 [facility] Comment on above: Order Comment: [facility] has implemented the eGFR calculation approach that does not have a coefficient for race that conforms to the NKF-ASN Task Force Recommendations. Performed By: #### 4 [id number] ####[facility] [address] [place] [address] [id number] Glenn Gudino M.D. [id number] Creatinine [Mass/Vol] 2.86 mg/dL High 0.60-1.10 [facility] Comment on above: Order Comment: [facility] has implemented the eGFR calculation approach that does not have a coefficient for race that conforms to the NKF-ASN Task Force Recommendations. Performed By: #### 4 6124 ####[facility] [address] [place] [address] 00248 Glenn Gudino M.D. [id number] EGFR 18 mL/min/1.73 m2 Low >=60 [facility] Comment on above: Order Comment: [facility] has implemented the eGFR calculation approach that does not have a coefficient for race that conforms to the NKF-ASN Task Force Recommendations. Result Comment: Joi mated GFR was calculated using the 2020 CKD-EPI creatinine equation. Performed By: #### 4 [id number] ####[facility] [address] [place] [address] [id number] Glenn Gudino M.D. [id number] Glucose [Mass/Vol] 81 mg/dL Normal 65-99 [facility] Comment on above: Order Comment: [facility] has implemented the eGFR calculation approach that does not have a coefficient for race that conforms to the NKF-ASN Task Force Recommendations. Performed By: #### 4 6124 ####[facility] [address] [place] [address] 09459 Glenn Gudino M.D. [id number] HCO3 (Bld) [Moles/Vol] 19 mmol/L Low 21-32 [facility] Comment on above: Order Comment: [facility] has implemented the eGFR calculation approach that does not have a coefficient for race that conforms to the NKF-ASN Task Force Recommendations. Performed By: #### 4 6124 ####[facility] [address] [place] [address] 82303 Glenn Gudino M.D. [id number] Potassium [Moles/Vol] 5.3 mmol/L High 3.5-5.1 [facility] Comment on above: Order Comment: [facility] has implemented the eGFR calculation approach that does not have a coefficient for race that conforms to the NKF-ASN Task Force Recommendations. Result Comment: Slig htly Hemolyzed Performed By: #### 4 6115 ####[facility] [address] [place] [address] 16091 Glenn Gudino M.D. [id number] Sodium [Moles/Vol] 137 mmol/L Normal 135-145 [facility] Comment on above: Order Comment: [facility] has implemented the eGFR calculation approach that does not have a coefficient for race that conforms to the NKF-ASN Task Force Recommendations. Performed By: #### 4 6124 ####[facility] [address] [place] [address] 84371 Glenn Gudino M.D. [id number] Urea nitrogen [Mass/Vol] 38 mg/dL High 8-25 [facility] Comment on above: Order Comment: [facility] has implemented the eGFR calculation approach that does not have a coefficient for race that conforms to the NKF-ASN Task Force Recommendations. Performed By: #### 4 6124 ####[facility] [address] [place] [address] 50366 Glenn Gudino M.D. [id number] Urea nitrogen/Creatinine [Mass ratio] 13.3 mg/mg Normal 10.0-20.0 [facility] Comment on above: Order Comment: [facility] has implemented the eGFR calculation approach that does not have a coefficient for race that conforms to the NKF-ASN Task Force Recommendations. Performed By: #### 4 6124 ####[facility] [address] [place] [address] 76626 Glenn Gudino M.D. [id number] Anion gap [Moles/Vol] 18 mmol/L Normal 10-20 [facility] Comment on above: Order Comment: [facility] has implemented the eGFR calculation approach that does not have a coefficient for race that conforms to the NKF-ASN Task Force Recommendations. Performed By: #### 4 6124 ####[facility] [address] [place] [address] 08347 Glenn Gudino M.D. [id number] Calcium [Mass/Vol] 7.4 mg/dL Low 8.4-10.2 [facility] Comment on above: Order Comment: [facility] has implemented the eGFR calculation approach that does not have a coefficient for race that conforms to the NKF-ASN Task Force Recommendations. Performed By: #### 4 6124 ####[facility] [address] [place] [address] 28601 Glenn Gudino M.D. [id number] Chloride [Moles/Vol] 107 mmol/L Normal 98-108 [facility] Comment on above: Order Comment: [facility] has implemented the eGFR calculation approach that does not have a coefficient for race that conforms to the NKF-ASN Task Force Recommendations. Performed By: #### 4 6124 ####[facility] [address] [place] [address] 48648 Glenn Gudino M.D. [id number] Creatinine [Mass/Vol] 2.54 mg/dL High 0.60-1.10 [facility] Comment on above: Order Comment: [facility] has implemented the eGFR calculation approach that does not have a coefficient for race that conforms to the NKF-ASN Task Force Recommendations. Performed By: #### 4 6124 ####[facility] [address] [place], [place] [address] Glenn Gudino M.D. [id number] EGFR 21 mL/min/1.73 m2 Low >=60 [facility] Comment on above: Order Comment: [facility] has implemented the eGFR calculation approach that does not have a coefficient for race that conforms to the NKF-ASN Task Force Recommendations. Result Comment: Joi mated GFR was calculated using the 2020 CKD-EPI creatinine equation. Performed By: #### 4 6124 ####[facility] [address] [place] [address] 66903 Glenn Gudino M.D. [id number] Glucose [Mass/Vol] 72 mg/dL Normal 65-99 [facility] Comment on above: Order Comment: [facility] has implemented the eGFR calculation approach that does not have a coefficient for race that conforms to the NKF-ASN Task Force Recommendations. Performed By: #### 4 6124 ####[facility] [address] [place] [address] 41878 Glenn Gudino M.D. [id number] HCO3 (Bld) [Moles/Vol] 17 mmol/L Low 21-32 [facility] Comment on above: Order Comment: [facility] has implemented the eGFR calculation approach that does not have a coefficient for race that conforms to the NKF-ASN Task Force Recommendations. Performed By: #### 4 6181 ####[facility] [address] [place], [place] [address] Glenn Gudino M.D. [id number] Potassium [Moles/Vol] 5.1 mmol/L Normal 3.5-5.1 [facility] Comment on above: Order Comment: [facility] has implemented the eGFR calculation approach that does not have a coefficient for race that conforms to the NKF-ASN Task Force Recommendations. Result Comment: Slcezar htly Hemolyzed Performed By: #### 4 6124 ####[facility] [address] [place], [place] [address] Glenn Gudino M.D. [id number] Sodium [Moles/Vol] 137 mmol/L Normal 135-145 [facility] Comment on above: Order Comment: [facility] has implemented the eGFR calculation approach that does not have a coefficient for race that conforms to the NKF-ASN Task Force Recommendations. Performed By: #### 4 6169 ####[facility] [address] [place] [address] 98582 Glenn Gudino M.D. [id number] Urea nitrogen [Mass/Vol] 36 mg/dL High 8-25 [facility] Comment on above: Order Comment: [facility] has implemented the eGFR calculation approach that does not have a coefficient for race that conforms to the NKF-ASN Task Force Recommendations. Performed By: #### 4 6160 ####[facility] [address] [place] [address] 54013 Glenn Gudino M.D. [id number] Urea nitrogen/Creatinine [Mass ratio] 14.2 mg/mg Normal 10.0-20.0 [facility] Comment on above: Order Comment: [facility] has implemented the eGFR calculation approach that does not have a coefficient for race that conforms to the NKF-ASN Task Force Recommendations. Performed By: #### 4 6124 ####[facility] [address] [place] [address] Glenn Gudino M.D. [id number] CALCIUM, IONIZEDon CALCIUM IONIZED 4.3 mg/dL Low 4.5-5.3 [facility] Comment on above: Order Comment: Serum , non-CRRT source. Performed By: #### 4 5190 ####[facility] [address] [place] [address] Glenn Gudino M.D. [id number] CALCIUM IONIZED 4.5 mg/dL Normal 4.5-5.3 [facility] Comment on above: Performed By: #### 4 5190 ####[facility] [address] [place] [address] Glenn Gudino M.D. [id number] CBCon 01-26-2024 AUTO NRBC 0.0 % Normal [facility] Comment on above: Performed By: #### 4 [id number] ####[facility] [address] [place], [place] [address] Glenn Gudino M.D. [id number] AUTO NRBC ABS COUNT 0.00 K/mcL Normal 0.00-0.00 [facility] Comment on above: Performed By: #### 4 [id number] ####[facility] [address] [place], [place] [address] Glenn Gudino M.D. [id number] Erythrocyte distribution width (RBC) [Ratio] 17.2 % High 11.6-14.8 [facility] Comment on above: Performed By: #### 4 [id number] ####[facility] [address] [place] [address] Glenn Gudino M.D. [id number] Hematocrit (Bld) [Volume fraction] 31.5 % Low 36.0-46.0 [facility] Comment on above: Performed By: #### 4 [id number] ####[facility] [address] [place] [address] Glenn Gudino M.D. [id number] Hemoglobin (Bld) [Mass/Vol] 10.5 g/dL Low 12.0-16.0 [facility] Comment on above: Performed By: #### 4 [id number] ####[facility] [address] [place] [address] Glenn Gudino M.D. [id number] MCH (RBC) [Entitic mass] 29.2 pg Normal 26.0-34.0 [facility] Comment on above: Performed By: #### 4 [id number] ####[facility] [address] [place] [address] Glenn Gudino M.D. [id number] MCV (RBC) [Entitic vol] 87.5 fL Normal 80.0-100.0 [facility] Comment on above: Performed By: #### 4 [id number] ####[facility] [address] [place], [place] [address] Glenn Gudino M.D. [id number] MEAN CORPUSCULAR HEMOGLOBIN CONC 33.3 g/dL Normal 31.0-37.0 [facility] Comment on above: Performed By: #### 4 [id number] ####[facility] [address] [place], [place] [address] Glenn Gudino M.D. [id number] Platelet mean volume (Bld) [Entitic vol] 11.7 fL Normal 9.4-12.4 [facility] Comment on above: Performed By: #### 4 [id number] ####[facility] [address] [place], [place] [address] Glenn Gudino M.D. [id number] Platelets (Bld) [#/Vol] 80 10*3/uL Low 150-400 [facility] Comment on above: Result Comment: Resu lts checked Performed By: #### 4 [id number] ####[facility] [address] [place], [place] [address] Glenn Gudino M.D. [id number] RBC (Bld) [#/Vol] 3.60 10*6/uL Low 4.00-5.20 [facility] Comment on above: Performed By: #### 4 [id number] ####[facility] [address] [place], [place] [address] Glenn Gudino M.D. [id number] WBC (Bld) [#/Vol] 13.45 10*3/uL High 4.50-11.00 [facility] Comment on above: Performed By: #### 4 [id number] ####[facility] [address] [place], [place] [address] Glenn Gudino M.D. [id number] MAGNESIUM LEVELon 01-26-2024 Magnesium [Mass/Vol] 2.2 mg/dL Normal 1.6-2.4 [facility] Comment on above: Performed By: #### 4 6109 ####[facility] [address] [place], [place] [address] Glenn Gudino M.D. [id number] Magnesium [Mass/Vol] 2.2 mg/dL Normal 1.6-2.4 [facility] Comment on above: Performed By: #### 4 6109 ####[facility] [address] [place], [place] [address] Glenn Gudino M.D. [id number] MYOGLOBIN, URINEon MYOGLOBIN, URINE Positive Abnormal Negative [facility] Comment on above: Performed By: #### 4 6189 ####[facility] [address] [place], [place] [address] Glenn Gudino M.D. [id number] PHOSPHORUSon 01-26-2024 Phosphate [Mass/Vol] 6.5 mg/dL High 2.8-4.1 [facility] Comment on above: Performed By: #### 4 6299 ####[facility] [address] [place] [address] Glenn Gudino M.D. [id number] POC GLUCOSE - [facility] 024 Glucose [Mass/Vol] 96 mg/dL Normal 65-99 [facility] Comment on above: Performed By: #### 4 6932 ####[facility] [address] [place] [address] [id number] [facility] Glucose [Mass/Vol] 14 mg/dL Off scale low 65-99 [facility] Comment on above: Order Comment: Criti cherrie result acted upon time of test. Test performed at bedside. Performed By: #### 4 6932 ####[facility] [address] [place] [address] [id number] [facility] Glucose [Mass/Vol] 72 mg/dL Normal 65-99 [facility] Comment on above: Performed By: #### 4 6932 ####[facility] [address] [place] [address] [id number] [facility] Glucose [Mass/Vol] 82 mg/dL Normal 65-99 [facility] Comment on above: Performed By: #### 4 6972 ####[facility] [address] [place] [address] [id number] [facility] Glucose [Mass/Vol] 84 mg/dL Normal 65-99 [facility] Comment on above: Performed By: #### 4 6970 ####[facility] [address] [place] [address] [id number] [facility] Glucose [Mass/Vol] 76 mg/dL Normal 65-99 [facility] Comment on above: Performed By: #### 4 6992 ####[facility] [address] [place] [address] [id number] [facility] Glucose [Mass/Vol] 78 mg/dL Normal 65-99 [facility] Comment on above: Performed By: #### 4 6932 ####[facility] [address] [place] [address] [id number] [facility] RENAL FUNCTION PANELon 01-25 Albumin [Mass/Vol] 1.6 g/dL Low 3.2-5.2 [facility] Comment on above: Order Comment: [facility] has implemented the eGFR calculation approach that does not have a coefficient for race that conforms to the NKF-ASN Task Force Recommendations. Performed By: #### 4 6449 ####[facility] [address] [place] [address] Glenn Gudino M.D. [id number] Anion gap [Moles/Vol] 17 mmol/L Normal 10-20 [facility] Comment on above: Order Comment: [facility] has implemented the eGFR calculation approach that does not have a coefficient for race that conforms to the NKF-ASN Task Force Recommendations. Performed By: #### 4 6449 ####[facility] [address] [place] [address] Glenn Gudino M.D. [id number] Calcium [Mass/Vol] 6.9 mg/dL Low 8.4-10.2 [facility] Comment on above: Order Comment: [facility] has implemented the eGFR calculation approach that does not have a coefficient for race that conforms to the NKF-ASN Task Force Recommendations. Performed By: #### 4 6449 ####[facility] [address] [place], [place] [address] Glenn Gudino M.D. [id number] Chloride [Moles/Vol] 103 mmol/L Normal 98-108 [facility] Comment on above: Order Comment: [facility] has implemented the eGFR calculation approach that does not have a coefficient for race that conforms to the NKF-ASN Task Force Recommendations. Performed By: #### 4 6449 ####[facility] [address] [place] [address] 92786 Glenn Gudino M.D. [id number] Creatinine [Mass/Vol] 2.90 mg/dL High 0.60-1.10 [facility] Comment on above: Order Comment: [facility] has implemented the eGFR calculation approach that does not have a coefficient for race that conforms to the NKF-ASN Task Force Recommendations. Performed By: #### 4 6449 ####[facility] [address] [place] [address] 73349 Glenn Gudino M.D. [id number] EGFR 18 mL/min/1.73 m2 Low >=60 [facility] Comment on above: Order Comment: [facility] has implemented the eGFR calculation approach that does not have a coefficient for race that conforms to the NKF-ASN Task Force Recommendations. Result Comment: Joi mated GFR was calculated using the 2020 CKD-EPI creatinine equation. Performed By: #### 4 6449 ####[facility] [address] [place] [address] 72641 Glenn Gudino M.D. [id number] Glucose [Mass/Vol] 84 mg/dL Normal 65-99 [facility] Comment on above: Order Comment: [facility] has implemented the eGFR calculation approach that does not have a coefficient for race that conforms to the NKF-ASN Task Force Recommendations. Performed By: #### 4 6449 ####[facility] [address] [place] [address] 71180 Glenn Gudino M.D. [id number] HCO3 (Bld) [Moles/Vol] 21 mmol/L Normal 21-32 [facility] Comment on above: Order Comment: [facility] has implemented the eGFR calculation approach that does not have a coefficient for race that conforms to the NKF-ASN Task Force Recommendations. Performed By: #### 4 6449 ####[facility] [address] [place] [address] 72673 Glenn Gudino M.D. [id number] Phosphate [Mass/Vol] 6.5 mg/dL High 2.8-4.1 [facility] Comment on above: Order Comment: [facility] has implemented the eGFR calculation approach that does not have a coefficient for race that conforms to the NKF-ASN Task Force Recommendations. Performed By: #### 4 6449 ####[facility] [address] [place], [place] [address] Glenn Gudino M.D. [id number] Potassium [Moles/Vol] 5.0 mmol/L Normal 3.5-5.1 [facility] Comment on above: Order Comment: [facility] has implemented the eGFR calculation approach that does not have a coefficient for race that conforms to the NKF-ASN Task Force Recommendations. Result Comment: Slig htly Hemolyzed Performed By: #### 4 6449 ####[facility] [address] [place], [place] [address] Glenn Gudino M.D. [id number] Sodium [Moles/Vol] 136 mmol/L Normal 135-145 [facility] Comment on above: Order Comment: [facility] has implemented the eGFR calculation approach that does not have a coefficient for race that conforms to the NKF-ASN Task Force Recommendations. Performed By: #### 4 6449 ####[facility] [address] [place], [place] [address] Glenn Gudino M.D. [id number] Urea nitrogen [Mass/Vol] 39 mg/dL High 8-25 [facility] Comment on above: Order Comment: [facility] has implemented the eGFR calculation approach that does not have a coefficient for race that conforms to the NKF-ASN Task Force Recommendations. Performed By: #### 4 6449 ####[facility] [address] [place], [place] [address] Glenn Gudino M.D. [id number] Urea nitrogen/Creatinine [Mass ratio] 13.4 mg/mg Normal 10.0-20.0 [facility] Comment on above: Order Comment: [facility] has implemented the eGFR calculation approach that does not have a coefficient for race that conforms to the NKF-ASN Task Force Recommendations. Performed By: #### 4 6449 ####[facility] [address] [place], [place] [address] Glenn Gudino M.D. [id number] XR ABDOMEN /KUB/FLAT PLATE/1 VIEWon 01-26-2024 XR ABDOMEN /KUB/FLAT PLATE/1 VIEW Normal [facility] Comment on above: Order Comment: Injur y/Trauma or Illness?:Illness/OtherHow long have you had these symptoms (acute/chronic)?:UnknownReason for exam?:NG placementHistory of cancer?:uSurgeries, chemotherapy, or radiation?:uType of Exam?:InitialAdditional signs and symptoms?:unk XR CHEST PA/APon 01-26-2024 XR CHEST PA/AP Normal [facility] Comment on above: Order Comment: Injur y/Trauma or Illness?:Illness/OtherHow long have you had these symptoms (acute/chronic)?:UnknownReason for exam?:eval LIJ placementHistory of cancer?:uSurgeries, chemotherapy, or radiation?:uType of Exam?:InitialAdditional signs and symptoms?:unk BASIC METABOLIC PANELon 12-28 Anion gap [Moles/Vol] 17 mmol/L Normal 10-20 [facility] Comment on above: Order Comment: [facility] has implemented the eGFR calculation approach that does not have a coefficient for race that conforms to the NKF-ASN Task Force Recommendations. Performed By: #### 4 [id number] ####[facility] [address] [place] [address] 14102 Glenn Gudino M.D. [id number] Calcium [Mass/Vol] 7.3 mg/dL Low 8.4-10.2 [facility] Comment on above: Order Comment: [facility] has implemented the eGFR calculation approach that does not have a coefficient for race that conforms to the NKF-ASN Task Force Recommendations. Performed By: #### 4 6124 ####[facility] [address] [place] [address] 12240 Glenn Gudino M.D. [id number] Chloride [Moles/Vol] 106 mmol/L Normal 98-108 [facility] Comment on above: Order Comment: [facility] has implemented the eGFR calculation approach that does not have a coefficient for race that conforms to the NKF-ASN Task Force Recommendations. Performed By: #### 4 6124 ####[facility] [address] [place], [place] [id number] Glenn Gudino M.D. [id number] Creatinine [Mass/Vol] 2.50 mg/dL High 0.60-1.10 [facility] Comment on above: Order Comment: [facility] has implemented the eGFR calculation approach that does not have a coefficient for race that conforms to the NKF-ASN Task Force Recommendations. Performed By: #### 4 [id number] ####[facility] [address] [place] [address] 25229 Glenn Gudino M.D. [id number] EGFR 21 mL/min/1.73 m2 Low >=60 [facility] Comment on above: Order Comment: [facility] has implemented the eGFR calculation approach that does not have a coefficient for race that conforms to the NKF-ASN Task Force Recommendations. Result Comment: Joi mated GFR was calculated using the 2020 CKD-EPI creatinine equation. Performed By: #### 4 [id number] ####[facility] [address] [place] [address] 17512 Glenn Gudino M.D. [id number] Glucose [Mass/Vol] 72 mg/dL Normal 65-99 [facility] Comment on above: Order Comment: [facility] has implemented the eGFR calculation approach that does not have a coefficient for race that conforms to the NKF-ASN Task Force Recommendations. Performed By: #### 4 6124 ####[facility] [address] [place] [address] 05957 Glenn Gudino M.D. [id number] HCO3 (Bld) [Moles/Vol] 19 mmol/L Low 21-32 [facility] Comment on above: Order Comment: [facility] has implemented the eGFR calculation approach that does not have a coefficient for race that conforms to the NKF-ASN Task Force Recommendations. Performed By: #### 4 6124 ####[facility] [address] [place] [address] 32848 Glenn Gudino M.D. [id number] Potassium [Moles/Vol] 5.0 mmol/L Normal 3.5-5.1 [facility] Comment on above: Order Comment: [facility] has implemented the eGFR calculation approach that does not have a coefficient for race that conforms to the NKF-ASN Task Force Recommendations. Performed By: #### 4 6124 ####[facility] [address] [place] [address] 12768 Glenn Gudino M.D. [id number] Sodium [Moles/Vol] 137 mmol/L Normal 135-145 [facility] Comment on above: Order Comment: [facility] has implemented the eGFR calculation approach that does not have a coefficient for race that conforms to the NKF-ASN Task Force Recommendations. Performed By: #### 4 6124 ####[facility] [address] [place] [address] 07447 Glenn Gudino M.D. [id number] Urea nitrogen [Mass/Vol] 32 mg/dL High 8-25 [facility] Comment on above: Order Comment: [facility] has implemented the eGFR calculation approach that does not have a coefficient for race that conforms to the NKF-ASN Task Force Recommendations. Performed By: #### 4 6151 ####[facility] [address] [place], [place] [address] Glenn Gudino M.D. [id number] Urea nitrogen/Creatinine [Mass ratio] 12.8 mg/mg Normal 10.0-20.0 [facility] Comment on above: Order Comment: [facility] has implemented the eGFR calculation approach that does not have a coefficient for race that conforms to the NKF-ASN Task Force Recommendations. Performed By: #### 4 6124 ####[facility] [address] [place], [place] [address] Glenn Gudino M.D. [id number] Anion gap [Moles/Vol] 16 mmol/L Normal 10-20 [facility] Comment on above: Order Comment: [facility] has implemented the eGFR calculation approach that does not have a coefficient for race that conforms to the NKF-ASN Task Force Recommendations. Performed By: #### 4 6124 ####[facility] [address] [place], [place] [address] Glenn Gudino M.D. [id number] Calcium [Mass/Vol] 7.3 mg/dL Low 8.4-10.2 [facility] Comment on above: Order Comment: [facility] has implemented the eGFR calculation approach that does not have a coefficient for race that conforms to the NKF-ASN Task Force Recommendations. Performed By: #### 4 6124 ####[facility] [address] [place] [address] 89247 Glenn Gudino M.D. [id number] Chloride [Moles/Vol] 109 mmol/L High 98-108 [facility] Comment on above: Order Comment: [facility] has implemented the eGFR calculation approach that does not have a coefficient for race that conforms to the NKF-ASN Task Force Recommendations. Performed By: #### 4 6124 ####[facility] [address] [place] [address] 45002 Glenn Gudino M.D. [id number] Creatinine [Mass/Vol] 2.31 mg/dL High 0.60-1.10 [facility] Comment on above: Order Comment: [facility] has implemented the eGFR calculation approach that does not have a coefficient for race that conforms to the NKF-ASN Task Force Recommendations. Performed By: #### 4 6124 ####[facility] [address] [place] [address] 96091 Glenn Gudino M.D. [id number] EGFR 24 mL/min/1.73 m2 Low >=60 [facility] Comment on above: Order Comment: [facility] has implemented the eGFR calculation approach that does not have a coefficient for race that conforms to the NKF-ASN Task Force Recommendations. Result Comment: Joi mated GFR was calculated using the 2020 CKD-EPI creatinine equation. Performed By: #### 4 [id number] ####[facility] [address] [place], [place] [address] Glenn Gudino M.D. [id number] Glucose [Mass/Vol] 115 mg/dL High 65-99 [facility] Comment on above: Order Comment: [facility] has implemented the eGFR calculation approach that does not have a coefficient for race that conforms to the NKF-ASN Task Force Recommendations. Performed By: #### 4 6124 ####[facility] [address] [place] [address] 38266 Glenn Gudino M.D. [id number] HCO3 (Bld) [Moles/Vol] 18 mmol/L Low 21-32 [facility] Comment on above: Order Comment: [facility] has implemented the eGFR calculation approach that does not have a coefficient for race that conforms to the NKF-ASN Task Force Recommendations. Performed By: #### 4 6124 ####[facility] [address] [place] [address] 24651 Glenn Gudino M.D. [id number] Potassium [Moles/Vol] 4.8 mmol/L Normal 3.5-5.1 [facility] Comment on above: Order Comment: [facility] has implemented the eGFR calculation approach that does not have a coefficient for race that conforms to the NKF-ASN Task Force Recommendations. Result Comment: Marisol leblanc Hemolyzed Performed By: #### 4 6124 ####[facility] [address] [place] [address] 09900 Glenn Gudino M.D. [id number] Sodium [Moles/Vol] 138 mmol/L Normal 135-145 [facility] Comment on above: Order Comment: [facility] has implemented the eGFR calculation approach that does not have a coefficient for race that conforms to the NKF-ASN Task Force Recommendations. Performed By: #### 4 6124 ####[facility] [address] [place] [address] 87452 Glenn Gudino M.D. [id number] Urea nitrogen [Mass/Vol] 33 mg/dL High 8-25 [facility] Comment on above: Order Comment: [facility] has implemented the eGFR calculation approach that does not have a coefficient for race that conforms to the NKF-ASN Task Force Recommendations. Performed By: #### 4 6124 ####[facility] [address] [place] [address] 35298 Glenn Gudino M.D. [id number] Urea nitrogen/Creatinine [Mass ratio] 14.3 mg/mg Normal 10.0-20.0 [facility] Comment on above: Order Comment: [facility] has implemented the eGFR calculation approach that does not have a coefficient for race that conforms to the NKF-ASN Task Force Recommendations. Performed By: #### 4 6124 ####[facility] [address] [place] [address] 13626 Glenn Gudino M.D. [id number] Anion gap [Moles/Vol] 16 mmol/L Normal 10-20 [facility] Comment on above: Order Comment: [facility] has implemented the eGFR calculation approach that does not have a coefficient for race that conforms to the NKF-ASN Task Force Recommendations. Performed By: #### 4 6124 ####[facility] [address] [place] [address] 39710 Glenn Gudino M.D. [id number] Calcium [Mass/Vol] 7.7 mg/dL Low 8.4-10.2 [facility] Comment on above: Order Comment: [facility] has implemented the eGFR calculation approach that does not have a coefficient for race that conforms to the NKF-ASN Task Force Recommendations. Performed By: #### 4 6124 ####[facility] [address] [place] [address] 07757 Glenn Gudino M.D. [id number] Chloride [Moles/Vol] 109 mmol/L High 98-108 [facility] Comment on above: Order Comment: [facility] has implemented the eGFR calculation approach that does not have a coefficient for race that conforms to the NKF-ASN Task Force Recommendations. Performed By: #### 4 6124 ####[facility] [address] [place] [address] 95380 Glenn Gudino M.D. [id number] Creatinine [Mass/Vol] 2.24 mg/dL High 0.60-1.10 [facility] Comment on above: Order Comment: [facility] has implemented the eGFR calculation approach that does not have a coefficient for race that conforms to the NKF-ASN Task Force Recommendations. Performed By: #### 4 6124 ####[facility] [address] [place] [address] 86931 Glenn Gudino M.D. [id number] EGFR 24 mL/min/1.73 m2 Low >=60 [facility] Comment on above: Order Comment: [facility] has implemented the eGFR calculation approach that does not have a coefficient for race that conforms to the NKF-ASN Task Force Recommendations. Result Comment: Joi mated GFR was calculated using the 2020 CKD-EPI creatinine equation. Performed By: #### 4 [id number] ####[facility] [address] [place] [address] 72397 Glenn Gudino M.D. [id number] Glucose [Mass/Vol] 73 mg/dL Normal 65-99 [facility] Comment on above: Order Comment: [facility] has implemented the eGFR calculation approach that does not have a coefficient for race that conforms to the NKF-ASN Task Force Recommendations. Performed By: #### 4 6124 ####[facility] [address] [place] [address] 90800 Glenn Gudino M.D. [id number] HCO3 (Bld) [Moles/Vol] 18 mmol/L Low 21-32 [facility] Comment on above: Order Comment: [facility] has implemented the eGFR calculation approach that does not have a coefficient for race that conforms to the NKF-ASN Task Force Recommendations. Performed By: #### 4 6124 ####[facility] [address] [place] [address] 22640 Glenn Gudino M.D. [id number] Potassium [Moles/Vol] 5.1 mmol/L Normal 3.5-5.1 [facility] Comment on above: Order Comment: [facility] has implemented the eGFR calculation approach that does not have a coefficient for race that conforms to the NKF-ASN Task Force Recommendations. Result Comment: Slig htly Hemolyzed Performed By: #### 4 6124 ####[facility] [address] [place] [address] 83751 Glenn Gudino M.D. [id number] Sodium [Moles/Vol] 138 mmol/L Normal 135-145 [facility] Comment on above: Order Comment: [facility] has implemented the eGFR calculation approach that does not have a coefficient for race that conforms to the NKF-ASN Task Force Recommendations. Performed By: #### 4 6165 ####[facility] [address] [place] [address] 26429 Glenn Gudino M.D. [id number] Urea nitrogen [Mass/Vol] 32 mg/dL High 8-25 [facility] Comment on above: Order Comment: [facility] has implemented the eGFR calculation approach that does not have a coefficient for race that conforms to the NKF-ASN Task Force Recommendations. Performed By: #### 4 6124 ####[facility] [address] [place], [place] [address] Glenn Gudino M.D. [id number] Urea nitrogen/Creatinine [Mass ratio] 14.3 mg/mg Normal 10.0-20.0 [facility] Comment on above: Order Comment: [facility] has implemented the eGFR calculation approach that does not have a coefficient for race that conforms to the NKF-ASN Task Force Recommendations. Performed By: #### 4 6124 ####[facility] [address] [place], [place] [address] Glenn Gudino M.D. [id number] Anion gap [Moles/Vol] 16 mmol/L Normal 10-20 [facility] Comment on above: Order Comment: [facility] has implemented the eGFR calculation approach that does not have a coefficient for race that conforms to the NKF-ASN Task Force Recommendations. Performed By: #### 4 6124 ####[facility] [address] [place] [address] 41653 Glenn Gudino M.D. [id number] Calcium [Mass/Vol] 7.4 mg/dL Low 8.4-10.2 [facility] Comment on above: Order Comment: [facility] has implemented the eGFR calculation approach that does not have a coefficient for race that conforms to the NKF-ASN Task Force Recommendations. Performed By: #### 4 6124 ####[facility] [address] [place] [address] 99891 Glenn Gudino M.D. [id number] Chloride [Moles/Vol] 110 mmol/L High 98-108 [facility] Comment on above: Order Comment: [facility] has implemented the eGFR calculation approach that does not have a coefficient for race that conforms to the NKF-ASN Task Force Recommendations. Performed By: #### 4 6124 ####[facility] [address] [place], [place] [address] Glenn Gudino M.D. [id number] Creatinine [Mass/Vol] 2.19 mg/dL High 0.60-1.10 [facility] Comment on above: Order Comment: [facility] has implemented the eGFR calculation approach that does not have a coefficient for race that conforms to the NKF-ASN Task Force Recommendations. Performed By: #### 4 6124 ####[facility] [address] [place], [place] [address] Glenn Gudino M.D. [id number] EGFR 25 mL/min/1.73 m2 Low >=60 [facility] Comment on above: Order Comment: [facility] has implemented the eGFR calculation approach that does not have a coefficient for race that conforms to the NKF-ASN Task Force Recommendations. Result Comment: Joi mated GFR was calculated using the 2020 CKD-EPI creatinine equation. Performed By: #### 4 6124 ####[facility] [address] [place] [address] 78680 Glenn Gudino M.D. [id number] Glucose [Mass/Vol] 95 mg/dL Normal 65-99 [facility] Comment on above: Order Comment: [facility] has implemented the eGFR calculation approach that does not have a coefficient for race that conforms to the NKF-ASN Task Force Recommendations. Performed By: #### 4 6124 ####[facility] [address] [place] [address] 61171 Glenn Gudino M.D. [id number] HCO3 (Bld) [Moles/Vol] 17 mmol/L Low 21-32 [facility] Comment on above: Order Comment: [facility] has implemented the eGFR calculation approach that does not have a coefficient for race that conforms to the NKF-ASN Task Force Recommendations. Performed By: #### 4 6124 ####[facility] [address] [place] [address] 73051 Glenn Gudino M.D. [id number] Potassium [Moles/Vol] 4.6 mmol/L Normal 3.5-5.1 [facility] Comment on above: Order Comment: [facility] has implemented the eGFR calculation approach that does not have a coefficient for race that conforms to the NKF-ASN Task Force Recommendations. Performed By: #### 4 6124 ####[facility] [address] [place], [place] [address] Glenn Gudino M.D. [id number] Sodium [Moles/Vol] 138 mmol/L Normal 135-145 [facility] Comment on above: Order Comment: [facility] has implemented the eGFR calculation approach that does not have a coefficient for race that conforms to the NKF-ASN Task Force Recommendations. Performed By: #### 4 6124 ####[facility] [address] [place] [address] 24417 Glenn Gudino M.D. [id number] Urea nitrogen [Mass/Vol] 31 mg/dL High 8-25 [facility] Comment on above: Order Comment: [facility] has implemented the eGFR calculation approach that does not have a coefficient for race that conforms to the NKF-ASN Task Force Recommendations. Performed By: #### 4 6124 ####[facility] [address] [place] [address] 75542 Glenn Gudino M.D. [id number] Urea nitrogen/Creatinine [Mass ratio] 14.2 mg/mg Normal 10.0-20.0 [facility] Comment on above: Order Comment: [facility] has implemented the eGFR calculation approach that does not have a coefficient for race that conforms to the NKF-ASN Task Force Recommendations. Performed By: #### 4 [id number] ####[facility] [address] [place] [address] 07693 Glenn Gudino M.D. [id number] Anion gap [Moles/Vol] 18 mmol/L Normal 10-20 [facility] Comment on above: Order Comment: [facility] has implemented the eGFR calculation approach that does not have a coefficient for race that conforms to the NKF-ASN Task Force Recommendations. Performed By: #### 4 6124 ####[facility] [address] [place] [address] 76554 Glenn Gudino M.D. [id number] Calcium [Mass/Vol] 7.0 mg/dL Low 8.4-10.2 [facility] Comment on above: Order Comment: [facility] has implemented the eGFR calculation approach that does not have a coefficient for race that conforms to the NKF-ASN Task Force Recommendations. Performed By: #### 4 6124 ####[facility] [address] [place] [address] 80229 Glenn Gudino M.D. [id number] Chloride [Moles/Vol] 109 mmol/L High 98-108 [facility] Comment on above: Order Comment: [facility] has implemented the eGFR calculation approach that does not have a coefficient for race that conforms to the NKF-ASN Task Force Recommendations. Performed By: #### 4 6124 ####[facility] [address] [place] [address] 52081 Glenn Gudino M.D. [id number] Creatinine [Mass/Vol] 1.78 mg/dL High 0.60-1.10 [facility] Comment on above: Order Comment: [facility] has implemented the eGFR calculation approach that does not have a coefficient for race that conforms to the NKF-ASN Task Force Recommendations. Performed By: #### 4 6124 ####[facility] [address] [place] [address] 79186 Glenn Gudino M.D. [id number] EGFR 32 mL/min/1.73 m2 Low >=60 [facility] Comment on above: Order Comment: [facility] has implemented the eGFR calculation approach that does not have a coefficient for race that conforms to the NKF-ASN Task Force Recommendations. Result Comment: Joi mated GFR was calculated using the 2020 CKD-EPI creatinine equation. Performed By: #### 4 [id number] ####[facility] [address] [place] [address] 61752 Glenn Gudino M.D. [id number] Glucose [Mass/Vol] 140 mg/dL High 65-99 [facility] Comment on above: Order Comment: [facility] has implemented the eGFR calculation approach that does not have a coefficient for race that conforms to the NKF-ASN Task Force Recommendations. Performed By: #### 4 [id number] ####[facility] [address] [place], [place] [address] Glenn Gudino M.D. [id number] HCO3 (Bld) [Moles/Vol] 17 mmol/L Low 21-32 [facility] Comment on above: Order Comment: [facility] has implemented the eGFR calculation approach that does not have a coefficient for race that conforms to the NKF-ASN Task Force Recommendations. Performed By: #### 4 [id number] ####[facility] [address] [place] [address] 99944 Glenn Gudino M.D. [id number] Sodium [Moles/Vol] 139 mmol/L Normal 135-145 [facility] Comment on above: Order Comment: [facility] has implemented the eGFR calculation approach that does not have a coefficient for race that conforms to the NKF-ASN Task Force Recommendations. Performed By: #### 4 [id number] ####[facility] [address] [place] [address] 04956 Glenn Gudino M.D. [id number] Urea nitrogen [Mass/Vol] 29 mg/dL High 8-25 [facility] Comment on above: Order Comment: [facility] has implemented the eGFR calculation approach that does not have a coefficient for race that conforms to the NKF-ASN Task Force Recommendations. Performed By: #### 4 [id number] ####[facility] [address] [place], [place] [address] Glenn Gudino M.D. [id number] Urea nitrogen/Creatinine [Mass ratio] 16.3 mg/mg Normal 10.0-20.0 [facility] Comment on above: Order Comment: [facility] has implemented the eGFR calculation approach that does not have a coefficient for race that conforms to the NKF-ASN Task Force Recommendations. Performed By: #### 4 6124 ####[facility] [address] [place], [place] [address] Glenn Gudino M.D. [id number] CALCIUM, IONIZEDon CALCIUM IONIZED 4.4 mg/dL Low 4.5-5.3 [facility] Comment on above: Performed By: #### 4 5190 ####[facility] [address] [place], [place] [address] Glenn Gudino M.D. [id number] CBCon 01-25-2024 AUTO NRBC 0.0 % Normal [facility] Comment on above: Performed By: #### 4 [id number] ####[facility] [address] [place], [place] [address] Glenn Gudino M.D. [id number] AUTO NRBC ABS COUNT 0.00 K/mcL Normal 0.00-0.00 [facility] Comment on above: Performed By: #### 4 [id number] ####[facility] [address] [place], [place] [address] Glenn Gudino M.D. [id number] Erythrocyte distribution width (RBC) [Ratio] 16.8 % High 11.6-14.8 [facility] Comment on above: Performed By: #### 4 [id number] ####[facility] [address] [place], [place] [address] Glenn Gudino M.D. [id number] Hematocrit (Bld) [Volume fraction] 34.2 % Low 36.0-46.0 [facility] Comment on above: Performed By: #### 4 [id number] ####[facility] [address] [place] [address] Glenn Gudino M.D. [id number] Hemoglobin (Bld) [Mass/Vol] 11.4 g/dL Low 12.0-16.0 [facility] Comment on above: Performed By: #### 4 [id number] ####[facility] [address] [place] [address] Glenn Gudino M.D. [id number] MCH (RBC) [Entitic mass] 28.8 pg Normal 26.0-34.0 [facility] Comment on above: Performed By: #### 4 [id number] ####[facility] [address] [place], [place] [address] Glenn Gudino M.D. [id number] MCV (RBC) [Entitic vol] 86.4 fL Normal 80.0-100.0 [facility] Comment on above: Performed By: #### 4 [id number] ####[facility] [address] [place] [address] Glenn Gudino M.D. [id number] MEAN CORPUSCULAR HEMOGLOBIN CONC 33.3 g/dL Normal 31.0-37.0 [facility] Comment on above: Performed By: #### 4 [id number] ####[facility] [address] [place], [place] [address] Glenn Gudino M.D. [id number] Platelet mean volume (Bld) [Entitic vol] 11.0 fL Normal 9.4-12.4 [facility] Comment on above: Performed By: #### 4 [id number] ####[facility] [address] [place], [place] [address] Glenn Gudino M.D. [id number] Platelets (Bld) [#/Vol] 111 10*3/uL Low 150-400 [facility] Comment on above: Performed By: #### 4 [id number] ####[facility] [address] [place] [address] Glenn Gudino M.D. [id number] RBC (Bld) [#/Vol] 3.96 10*6/uL Low 4.00-5.20 [facility] [place] Comment on above: Performed By: #### 4 [id number] ####[facility] [address] [place] [address] Glenn Gudino M.D. [id number] WBC (Bld) [#/Vol] 12.12 10*3/uL High 4.50-11.00 [facility] Comment on above: Performed By: #### 4 5218 ####[facility] [address] [place], [place] [address] Glenn Gudino M.D. [id number] AUTO NRBC 0.0 % Normal [facility] Comment on above: Performed By: #### 4 [id number] ####[facility] [address] [place], [place] [address] Glenn Gudino M.D. [id number] AUTO NRBC ABS COUNT 0.00 K/mcL Normal 0.00-0.00 [facility] [place] Comment on above: Performed By: #### 4 [id number] ####[facility] [address] [place], [place] [address] Glenn Gudino M.D. [id number] Erythrocyte distribution width (RBC) [Ratio] 16.3 % High 11.6-14.8 [facility] Comment on above: Performed By: #### 4 5218 ####[facility] [address] [place], [place] [address] Glenn Gudino M.D. [id number] Hematocrit (Bld) [Volume fraction] 36.7 % Normal 36.0-46.0 [facility] Comment on above: Performed By: #### 4 5218 ####[facility] [address] [place] [address] Glenn Gudino M.D. [id number] Hemoglobin (Bld) [Mass/Vol] 12.7 g/dL Normal 12.0-16.0 [facility] Comment on above: Performed By: #### 4 5218 ####[facility] [address] [place] [address] Glenn Gudino M.D. [id number] MCH (RBC) [Entitic mass] 29.5 pg Normal 26.0-34.0 [facility] Comment on above: Performed By: #### 4 5218 ####[facility] [address] [place], [place] [address] Glenn Gudino M.D. [id number] MCV (RBC) [Entitic vol] 85.2 fL Normal 80.0-100.0 [facility] Comment on above: Performed By: #### 4 5218 ####[facility] [address] [place], [place] [address] Glenn Gudino M.D. [id number] MEAN CORPUSCULAR HEMOGLOBIN CONC 34.6 g/dL Normal 31.0-37.0 [facility] Comment on above: Performed By: #### 4 5218 ####[facility] [address] [place], [place] [address] Glenn Gudino M.D. [id number] Platelet mean volume (Bld) [Entitic vol] 10.3 fL Normal 9.4-12.4 [facility] Comment on above: Performed By: #### 4 5218 ####[facility] [address] [place] [address] Glenn Gudino M.D. [id number] Platelets (Bld) [#/Vol] 126 10*3/uL Low 150-400 [facility] Comment on above: Result Comment: Resu lts checked Performed By: #### 4 5218 ####[facility] [address] [place], [place] [address] Glenn Gudino M.D. [id number] RBC (Bld) [#/Vol] 4.31 10*6/uL Normal 4.00-5.20 [facility] Comment on above: Performed By: #### 4 5218 ####[facility] [address] [place], [place] [address] Glenn Gudino M.D. [id number] WBC (Bld) [#/Vol] 12.24 10*3/uL High 4.50-11.00 [facility] Comment on above: Performed By: #### 4 5218 ####[facility] [address] [place], [place] [address] Glenn Gudino M.D. [id number] CPKon 01-25-2024 CPK 364 U/L High 40-170 [facility] Comment on above: Performed By: #### 4 8261 ####[facility] [address] [place], [place] [address] Glenn Gudino M.D. [id number] MAGNESIUM LEVELon 01-25-2024 Magnesium [Mass/Vol] 2.5 mg/dL High 1.6-2.4 [facility] Comment on above: Performed By: #### 4 6109 ####[facility] [address] [place] [address] Glenn Gudino M.D. [id number] Magnesium [Mass/Vol] 2.5 mg/dL High 1.6-2.4 [facility] Comment on above: Performed By: #### 4 6109 ####[facility] [address] [place] [address] Glenn Gudino M.D. [id number] POC ARTERIAL BLOOD GAS PANEL -KASSY Lenz 01-25-2024 BASE EXCESS, ARTERIAL -5.1 Low -2.0-2.0 [facility] Comment on above: Performed By: #### 4 8716 ####[facility] [address] [place] [address] [id number] [facility] CALCIUM IONIZED 4.4 mg/dL Low 4.5-5.3 [facility] Comment on above: Performed By: #### 4 8716 ####[facility] [address] [place] [address] [id number] [facility] CARBOXYHEMOGLOBIN 1.2 % of total Hb Normal <=1.5 [facility] Comment on above: Result Comment: Refe rence Ranges:[facility] Non-smokers: <1.5%Smokers: 1.5-5.0%Heavy Smokers: 5.0-9.0% Performed By: #### 4 1316 ####[facility] [address] [place] [address] [id number] [facility] Chloride [Moles/Vol] 109 mmol/L High 98-108 [facility] Comment on above: Performed By: #### 4 9116 ####[facility] [address] [place] [address] [id number] [facility] Glucose [Mass/Vol] 78 mg/dL Normal 65-99 [facility] Comment on above: Performed By: #### 4 6424 ####[facility] [address] [place] [address] [id number] [facility] HCO3 (Bld) [Moles/Vol] 19.1 mmol/L Low 22.0-26.0 [facility] Comment on above: Performed By: #### 4 0728 ####[facility] [address] [place] [address] [id number] [facility] Hematocrit (Bld) [Volume fraction] 34.0 % Low 36.0-46.0 [facility] Comment on above: Performed By: #### 4 8716 ####[facility] [address] [place] [address] [id number] [facility] Hemoglobin (Bld) [Mass/Vol] 11.1 g/dL Low 12.0-16.0 [facility] Comment on above: Performed By: #### 4 8716 ####[facility] [address] [place] [address] [id number] [facility] LACTIC ACID, WHOLE BLOOD 1.9 mmol/L Normal 0.6-2.0 [facility] Comment on above: Performed By: #### 4 8716 ####[facility] [address] [place] [address] [id number] [facility] LITER FLOW 4 Normal [facility] Comment on above: Performed By: #### 4 8716 ####[facility] [address] [place] [address] [id number] [facility] METHEMOGLOBIN < Normal 0.0-2.0 [facility] Comment on above: Performed By: #### 4 8716 ####[facility] [address] [place] [address] [id number] [facility] O2HB 97.6 % Normal 94.0-98.0 [facility] Comment on above: Performed By: #### 4 1616 ####[facility] [address] [place] [address] [id number] [facility] Oxygen saturation in Blood 99.3 % High 92.0-99.0 [facility] Comment on above: Performed By: #### 4 8716 ####[facility] [address] [place] [address] [id number] [facility] PCO2 ARTERIAL 32.0 mm Hg Low 35.0-45.0 [facility] Comment on above: Performed By: #### 4 8716 ####[facility] [address] [place] [address] [id number] [facility] PH ARTERIAL 7.39 Normal 7.35-7.45 [facility] Comment on above: Performed By: #### 4 8716 ####[facility] [address] [place] [address] [id number] [facility] PO2 ARTERIAL 132 mm Hg High 80-100 [facility] Comment on above: Performed By: #### 4 8716 ####[facility] [address] [place] [address] [id number] [facility] Potassium [Moles/Vol] 4.6 mmol/L Normal 3.5-5.1 [facility] Comment on above: Performed By: #### 4 8716 ####[facility] [address] [place] [address] [id number] [facility] RESULT NOTIFICATION [id number] Normal [facility] Comment on above: Performed By: #### 4 8716 ####[facility] [address] [place] [address] [id number] [facility] Sodium [Moles/Vol] 134 mmol/L Low 135-145 [facility] Comment on above: Performed By: #### 4 8716 ####[facility] [address] [place] [address] [id number] [facility] POC GLUCOSE [facility] 024 Glucose [Mass/Vol] 79 mg/dL Normal 65-99 [facility] Comment on above: Performed By: #### 4 9292 ####[facility] [address] [place] [address] [id number] [facility] Glucose [Mass/Vol] 74 mg/dL Normal 65-99 [facility] Comment on above: Performed By: #### 4 4477 ####[facility] [address] [place] [address] [id number] [facility] Glucose [Mass/Vol] 96 mg/dL Normal 65-99 [facility] Comment on above: Performed By: #### 4 6932 ####[facility] [address] [place] [address] [id number] [facility] Glucose [Mass/Vol] 65 mg/dL Normal 65-99 [facility] Comment on above: Performed By: #### 4 6932 ####[facility] [address] [place] [address] [id number] [facility] Glucose [Mass/Vol] 34 mg/dL Off scale low 65-99 [facility] Comment on above: Order Comment: Criti cherrie result acted upon time of test. Test performed at bedside. Performed By: #### 4 6928 ####[facility] [address] [place] [address] [id number] [facility] Glucose [Mass/Vol] 77 mg/dL Normal 65-99 [facility] Comment on above: Performed By: #### 4 6954 ####[facility] [address] [place] [address] [id number] [facility] Glucose [Mass/Vol] 50 mg/dL Low 65-99 [facility] Comment on above: Performed By: #### 4 6927 ####[facility] [address] [place] [address] [id number] [facility] Glucose [Mass/Vol] 75 mg/dL Normal 65-99 [facility] Comment on above: Performed By: #### 4 7943 ####[facility] [address] [place] [address] [id number] [facility] Glucose [Mass/Vol] 136 mg/dL High 65-99 [facility] Comment on above: Performed By: #### 4 6830 ####[facility] [address] [place] [address] [id number] [facility] POTASSIUM LEVELon 01-25-2024 Potassium [Moles/Vol] 5.0 mmol/L Normal 3.5-5.1 [facility] Comment on above: Result Comment: Slig htly Hemolyzed Performed By: #### 4 6351 ####[facility] [address] [place] [address] Glenn Gudino M.D. [id number] Order Comment: [facility] has implemented the eGFR calculation approach that does not have a coefficient for race that conforms to the NKF-ASN Task Force Recommendations. Performed By: #### 4 6124 ####[facility] [address] [place] [address] Glenn Gudino M.D. [id number] PT/INRon 01-25-2024 INR Coag (PPP) [Relative time] 1.2 {INR} High 0.8-1.1 [facility] Comment on above: Order Comment: Jennifer retana the induction phase of oral anticoagulation, the INR may not reflect the anticoagulation status of the patient. Therapeutic ranges for INR's are:Most clinical situations: INR 2.0-3.0Mechanical Prosthetic Valve: INR 2.5-3.5Critical: INR >5.0 Performed By: #### 4 6391 ####[facility] [address] [place] [address] Glenn Gudino M.D. [id number] PT Coag (PPP) [Time] 15.5 s High 11.8-14.3 [facility] Comment on above: Order Comment: Jennifer retana the induction phase of oral anticoagulation, the INR may not reflect the anticoagulation status of the patient. Therapeutic ranges for INR's are:Most clinical situations: INR 2.0-3.0Mechanical Prosthetic Valve: INR 2.5-3.5Critical: INR >5.0 Performed By: #### 4 6391 ####[facility] [address] [place] [address] Glenn Gudino M.D. [id number] RENAL FUNCTION PANELon 01-24 Albumin [Mass/Vol] 2.1 g/dL Low 3.2-5.2 [facility] Comment on above: Order Comment: [facility] has implemented the eGFR calculation approach that does not have a coefficient for race that conforms to the NKF-ASN Task Force Recommendations. Performed By: #### 4 6449 ####[facility] [address] [place], [place] [address] Glenn Gudino M.D. [id number] Anion gap [Moles/Vol] 18 mmol/L Normal 10-20 [facility] Comment on above: Order Comment: [facility] has implemented the eGFR calculation approach that does not have a coefficient for race that conforms to the NKF-ASN Task Force Recommendations. Performed By: #### 4 6449 ####[facility] [address] [place] [address] Glenn Gudino M.D. [id number] Performed By: #### 4 6124 ####[facility] [address] [place], [place] [address] Glenn Gudino M.D. [id number] Calcium [Mass/Vol] 7.5 mg/dL Low 8.4-10.2 [facility] Comment on above: Order Comment: [facility] has implemented the eGFR calculation approach that does not have a coefficient for race that conforms to the NKF-ASN Task Force Recommendations. Performed By: #### 4 6449 ####[facility] [address] [place], [place] [address] Glenn Gudino M.D. [id number] Performed By: #### 4 6124 ####[facility] [address] [place], [place] [address] Glnen Gudino M.D. [id number] Chloride [Moles/Vol] 110 mmol/L High 98-108 [facility] Comment on above: Order Comment: [facility] has implemented the eGFR calculation approach that does not have a coefficient for race that conforms to the NKF-ASN Task Force Recommendations. Performed By: #### 4 6449 ####[facility] [address] [place] [address] Glenn Gudino M.D. [id number] Performed By: #### 4 6124 ####[facility] [address] [place], [place] [address] Glenn Gudino M.D. [id number] Creatinine [Mass/Vol] 1.99 mg/dL High 0.60-1.10 [facility] Comment on above: Order Comment: [facility] has implemented the eGFR calculation approach that does not have a coefficient for race that conforms to the NKF-ASN Task Force Recommendations. Performed By: #### 4 6449 ####[facility] [address] [place], [place] [address] Glenn Gudino M.D. [id number] Performed By: #### 4 6124 ####[facility] [address] [place], [place] [address] Glenn Gudino M.D. [id number] EGFR 28 mL/min/1.73 m2 Low >=60 [facility] Comment on above: Order Comment: [facility] has implemented the eGFR calculation approach that does not have a coefficient for race that conforms to the NKF-ASN Task Force Recommendations. Result Comment: Joi mated GFR was calculated using the 2020 CKD-EPI creatinine equation.Estimated GFR was calculated using the 2020 CKD-EPI creatinine equation. Performed By: #### 4 6449 ####[facility] [address] [place], [place] [address] Glenn Gudino M.D. [id number] Result Comment: Joi mated GFR was calculated using the 2020 CKD-EPI creatinine equation. Performed By: #### 4 6124 ####[facility] [address] [place], [place] [address] Glenn Gudino M.D. [id number] Glucose [Mass/Vol] 127 mg/dL High 65-99 [facility] Comment on above: Order Comment: [facility] has implemented the eGFR calculation approach that does not have a coefficient for race that conforms to the NKF-ASN Task Force Recommendations. Performed By: #### 4 6449 ####[facility] [address] [place] [address] Glenn Gudino M.D. [id number] Performed By: #### 4 6124 ####[facility] [address] [place] [address] Glenn Gudino M.D. [id number] HCO3 (Bld) [Moles/Vol] 17 mmol/L Low 21-32 [facility] Comment on above: Order Comment: [facility] has implemented the eGFR calculation approach that does not have a coefficient for race that conforms to the NKF-ASN Task Force Recommendations. Performed By: #### 4 6449 ####[facility] [address] [place] [address] Glenn Gudino M.D. [id number] Performed By: #### 4 6124 ####[facility] [address] [place], [place] [address] Glenn Gudino M.D. [id number] Phosphate [Mass/Vol] 5.4 mg/dL High 2.8-4.1 [facility] Comment on above: Order Comment: [facility] has implemented the eGFR calculation approach that does not have a coefficient for race that conforms to the NKF-ASN Task Force Recommendations. Performed By: #### 4 6449 ####[facility] [address] [place], [place] [address] Glenn Gudino M.D. [id number] Potassium [Moles/Vol] 5.0 mmol/L Normal 3.5-5.1 [facility] Comment on above: Order Comment: [facility] has implemented the eGFR calculation approach that does not have a coefficient for race that conforms to the NKF-ASN Task Force Recommendations. Result Comment: Slig htly Hemolyzed Performed By: #### 4 6449 ####[facility] [address] [place] [address] Glenn Gudino M.D. [id number] Performed By: #### 4 6124 ####[facility] [address] [place], [place] [address] Glenn Gudino M.D. [id number] Sodium [Moles/Vol] 140 mmol/L Normal 135-145 [facility] Comment on above: Order Comment: [facility] has implemented the eGFR calculation approach that does not have a coefficient for race that conforms to the NKF-ASN Task Force Recommendations. Performed By: #### 4 6449 ####[facility] [address] [place] [address] Glenn Gudino M.D. [id number] Performed By: #### 4 6124 ####[facility] [address] [place], [place] [address] Glenn Gudino M.D. [id number] Urea nitrogen [Mass/Vol] 30 mg/dL High 8-25 [facility] Comment on above: Order Comment: [facility] has implemented the eGFR calculation approach that does not have a coefficient for race that conforms to the NKF-ASN Task Force Recommendations. Performed By: #### 4 6449 ####[facility] [address] [place], [place] [address] Glenn Gudino M.D. [id number] Performed By: #### 4 6124 ####[facility] [address] [place], [place] [address] Glenn Gudino M.D. [id number] Urea nitrogen/Creatinine [Mass ratio] 15.1 mg/mg Normal 10.0-20.0 [facility] Comment on above: Order Comment: [facility] has implemented the eGFR calculation approach that does not have a coefficient for race that conforms to the NKF-ASN Task Force Recommendations. Performed By: #### 4 6449 ####[facility] [address] [place] [address] Glenn Gudino M.D. [id number] Performed By: #### 4 6124 ####[facility] [address] [place] [address] Glenn Gudino M.D. [id number] XR CHEST PA/APon 01-25-2024 XR CHEST PA/AP [facility] Comment on above: Order Comment: Injur y/Trauma or Illness?:Illness/OtherHow long have you had these symptoms (acute/chronic)?:AcuteReason for exam?:ettHistory of cancer?:uSurgeries, chemotherapy, or radiation?:uType of Exam?:OngoingAdditional signs and symptoms?:ett ANTIBODY IDENTIFICATION ARC- Con 01-24-2024 ANTIBODY IDENTIFICATION ARC-C [facility] Comment on above: Performed By: #### A BIDARC_Anti-C ####[facility] [address] [place] [address] Nurys Oneill MD [id number] RMS ANTIBODY IDENTIFICATION ARC- FYAon 01-24-2024 ANTIBODY IDENTIFICATION ARC-FYA [facility] Comment on above: Performed By: #### A BIDARC_Anti-Fya ####[facility] [facility] [address] [place] [address] Nurys Oneill MD [id number] RMHT[facility] ANTIBODY IDENTIFICATION ARC- INCon 01-24-2024 ANTIBODY IDENTIFICATION ARC-INC [facility] Comment on above: Performed By: #### A BIDARC_Inconclusive ####[facility] [address] [place] [address] Nurys Oneill MD [id number] [facility] APTTon 01-24-2024 aPTT Coag (Bld) [Time] 37 s High 23-34 [facility] Comment on above: Order Comment: Thera peutic range for APTT's is 68 - 104 seconds Result Comment: Resu lts checked. Performed By: #### 4 5113 ####[facility] [address] [place] [address] 53448 Glenn Gudino M.D. [id number] BASIC METABOLIC PANELon 08-2 Anion gap [Moles/Vol] 15 mmol/L Normal 10-20 [facility] Comment on above: Order Comment: [facility] has implemented the eGFR calculation approach that does not have a coefficient for race that conforms to the NKF-ASN Task Force Recommendations. Performed By: #### 4 6124 ####[facility] [address] [place] [address] 94191 Glenn Gudino M.D. [id number] Calcium [Mass/Vol] 7.6 mg/dL Low 8.4-10.2 [facility] Comment on above: Order Comment: [facility] has implemented the eGFR calculation approach that does not have a coefficient for race that conforms to the NKF-ASN Task Force Recommendations. Performed By: #### 4 6124 ####[facility] [address] [place] [address] 23674 Glenn Gudino M.D. [id number] Chloride [Moles/Vol] 111 mmol/L High 98-108 [facility] Comment on above: Order Comment: [facility] has implemented the eGFR calculation approach that does not have a coefficient for race that conforms to the NKF-ASN Task Force Recommendations. Performed By: #### 4 6124 ####[facility] [address] [place] [address] 21253 Glenn Gudino M.D. [id number] Creatinine [Mass/Vol] 1.77 mg/dL High 0.60-1.10 [facility] Comment on above: Order Comment: [facility] has implemented the eGFR calculation approach that does not have a coefficient for race that conforms to the NKF-ASN Task Force Recommendations. Performed By: #### 4 6188 ####[facility] [address] [place] [address] 08181 Glenn Gudino M.D. [id number] EGFR 32 mL/min/1.73 m2 Low >=60 [facility] Comment on above: Order Comment: [facility] has implemented the eGFR calculation approach that does not have a coefficient for race that conforms to the NKF-ASN Task Force Recommendations. Result Comment: Joi mated GFR was calculated using the 2020 CKD-EPI creatinine equation. Performed By: #### 4 6124 ####[facility] [address] [place] [address] 51786 Glenn Gudino M.D. [id number] Glucose [Mass/Vol] 164 mg/dL High 65-99 [facility] Comment on above: Order Comment: [facility] has implemented the eGFR calculation approach that does not have a coefficient for race that conforms to the NKF-ASN Task Force Recommendations. Performed By: #### 4 6124 ####[facility] [address] [place] [address] 46563 Glenn Gudino M.D. [id number] HCO3 (Bld) [Moles/Vol] 18 mmol/L Low 21-32 [facility] Comment on above: Order Comment: [facility] has implemented the eGFR calculation approach that does not have a coefficient for race that conforms to the NKF-ASN Task Force Recommendations. Performed By: #### 4 6124 ####[facility] [address] [place] [address] 32009 Glenn Gudino M.D. [id number] Potassium [Moles/Vol] 4.7 mmol/L Normal 3.5-5.1 [facility] Comment on above: Order Comment: [facility] has implemented the eGFR calculation approach that does not have a coefficient for race that conforms to the NKF-ASN Task Force Recommendations. Performed By: #### 4 6124 ####[facility] [address] [place], [place] [address] Glenn Gudino M.D. [id number] Sodium [Moles/Vol] 139 mmol/L Normal 135-145 [facility] Comment on above: Order Comment: [facility] has implemented the eGFR calculation approach that does not have a coefficient for race that conforms to the NKF-ASN Task Force Recommendations. Performed By: #### 4 6137 ####[facility] [address] [place], [place] [address] Glenn Gudino M.D. [id number] Urea nitrogen [Mass/Vol] 27 mg/dL High 8-25 [facility] Comment on above: Order Comment: [facility] has implemented the eGFR calculation approach that does not have a coefficient for race that conforms to the NKF-ASN Task Force Recommendations. Performed By: #### 4 6118 ####[facility] [address] [place], [place] [address] Glenn Gudino M.D. [id number] Urea nitrogen/Creatinine [Mass ratio] 15.3 mg/mg Normal 10.0-20.0 [facility] Comment on above: Order Comment: [facility] has implemented the eGFR calculation approach that does not have a coefficient for race that conforms to the NKF-ASN Task Force Recommendations. Performed By: #### 4 6180 ####[facility] [address] [place] [address] 49949 Glenn Gudino M.D. [id number] Anion gap [Moles/Vol] 16 mmol/L Normal 10-20 [facility] Comment on above: Order Comment: [facility] has implemented the eGFR calculation approach that does not have a coefficient for race that conforms to the NKF-ASN Task Force Recommendations. Performed By: #### 4 6129 ####[facility] [address] [place], [place] [address] Glenn Gudino M.D. [id number] Performed By: #### 4 6113 ####[facility] [address] [place], [place] [address] Glenn Gudino M.D. [id number] Calcium [Mass/Vol] 6.2 mg/dL Low 8.4-10.2 [facility] Comment on above: Order Comment: [facility] has implemented the eGFR calculation approach that does not have a coefficient for race that conforms to the NKF-ASN Task Force Recommendations. Performed By: #### 4 6124 ####[facility] [address] [place] [address] Glenn Gudino M.D. [id number] Performed By: #### 4 6126 ####[facility] [address] [place] [address] Glenn Gudino M.D. [id number] Chloride [Moles/Vol] 115 mmol/L High 98-108 [facility] Comment on above: Order Comment: [facility] has implemented the eGFR calculation approach that does not have a coefficient for race that conforms to the NKF-ASN Task Force Recommendations. Performed By: #### 4 6124 ####[facility] [address] [place], [place] [address] Glenn Gudino M.D. [id number] Performed By: #### 4 6126 ####[facility] [address] [place], [place] [address] Glenn Gudino M.D. [id number] Creatinine [Mass/Vol] 1.54 mg/dL High 0.60-1.10 [facility] Comment on above: Order Comment: [facility] has implemented the eGFR calculation approach that does not have a coefficient for race that conforms to the NKF-ASN Task Force Recommendations. Performed By: #### 4 6132 ####[facility] [address] [place] [address] Glenn Gudino M.D. [id number] Performed By: #### 4 6135 ####[facility] [address] [place] [address] 26024 Glenn Gudino M.D. [id number] EGFR 38 mL/min/1.73 m2 Low >=60 [facility] Comment on above: Order Comment: [facility] has implemented the eGFR calculation approach that does not have a coefficient for race that conforms to the NKF-ASN Task Force Recommendations. Result Comment: Joi mated GFR was calculated using the 2020 CKD-EPI creatinine equation.Estimated GFR was calculated using the 2020 CKD-EPI creatinine equation. Performed By: #### 4 6124 ####[facility] [address] [place] [address] 91434 Glenn Gudino M.D. [id number] Result Comment: Joi mated GFR was calculated using the 2020 CKD-EPI creatinine equation. Performed By: #### 4 6126 ####[facility] [address] [place], [place] [address] Glenn Gudino M.D. [id number] Glucose [Mass/Vol] 122 mg/dL High 65-99 [facility] Comment on above: Order Comment: [facility] has implemented the eGFR calculation approach that does not have a coefficient for race that conforms to the NKF-ASN Task Force Recommendations. Performed By: #### 4 6124 ####[facility] [address] [place] [address] 09546 Glenn Gudino M.D. [id number] Performed By: #### 4 6127 ####[facility] [address] [place], [place] [address] Glenn Gudino M.D. [id number] HCO3 (Bld) [Moles/Vol] 13 mmol/L Low 21-32 [facility] Comment on above: Order Comment: [facility] has implemented the eGFR calculation approach that does not have a coefficient for race that conforms to the NKF-ASN Task Force Recommendations. Performed By: #### 4 6140 ####[facility] [address] [place], [place] [address] Glenn Gudino M.D. [id number] Performed By: #### 4 6126 ####[facility] [address] [place], [place] [address] Glenn Gudino M.D. [id number] Potassium [Moles/Vol] 5.1 mmol/L Normal 3.5-5.1 [facility] Comment on above: Order Comment: [facility] has implemented the eGFR calculation approach that does not have a coefficient for race that conforms to the NKF-ASN Task Force Recommendations. Result Comment: Slig htly Hemolyzed Performed By: #### 4 6124 ####[facility] [address] [place], [place] [address] Glenn Gudino M.D. [id number] Performed By: #### 4 6126 ####[facility] [address] [place], [place] [address] Glenn Gudino M.D. [id number] Sodium [Moles/Vol] 139 mmol/L Normal 135-145 [facility] Comment on above: Order Comment: [facility] has implemented the eGFR calculation approach that does not have a coefficient for race that conforms to the NKF-ASN Task Force Recommendations. Performed By: #### 4 6124 ####[facility] [address] [place], [place] [address] Glenn Gudino M.D. [id number] Performed By: #### 4 6126 ####[facility] [address] [place], [place] [address] Glenn Gudino M.D. [id number] Urea nitrogen [Mass/Vol] 25 mg/dL Normal 8-25 [facility] Comment on above: Order Comment: [facility] has implemented the eGFR calculation approach that does not have a coefficient for race that conforms to the NKF-ASN Task Force Recommendations. Performed By: #### 4 6124 ####[facility] [address] [place] [address] 13387 Glenn Gudino M.D. [id number] Performed By: #### 4 6126 ####[facility] [address] [place] [address] 43841 Glenn Gudino M.D. [id number] Urea nitrogen/Creatinine [Mass ratio] 16.2 mg/mg Normal 10.0-20.0 [facility] Comment on above: Order Comment: [facility] has implemented the eGFR calculation approach that does not have a coefficient for race that conforms to the NKF-ASN Task Force Recommendations. Performed By: #### 4 6124 ####[facility] [address] [place] [address] Glenn Gudino M.D. [id number] Performed By: #### 4 6126 ####[facility] [address] [place], [place] [address] Glenn Gudino M.D. [id number] CALCIUM, IONIZEDon CALCIUM IONIZED 4.5 mg/dL Normal 4.5-5.3 [facility] Comment on above: Performed By: #### 4 5190 ####[facility] [address] [place], [place] [address] Glenn Gudino M.D. [id number] CBCon 01-24-2024 AUTO NRBC 0.0 % Normal [facility] Comment on above: Performed By: #### 4 [id number] ####[facility] [address] [place], [place] [address] Glenn Gudino M.D. [id number] AUTO NRBC ABS COUNT 0.00 K/mcL Normal 0.00-0.00 [facility] Comment on above: Performed By: #### 4 [id number] ####[facility] [address] [place] [address] Glenn Gudino M.D. [id number] Erythrocyte distribution width (RBC) [Ratio] 16.2 % High 11.6-14.8 [facility] Comment on above: Performed By: #### 4 5218 ####[facility] [address] [place], [place] [address] Glenn Gudino M.D. [id number] Hematocrit (Bld) [Volume fraction] 32.4 % Low 36.0-46.0 [facility] Comment on above: Performed By: #### 4 5218 ####[facility] [address] [place] [address] Glenn Gudino M.D. [id number] Hemoglobin (Bld) [Mass/Vol] 10.5 g/dL Low 12.0-16.0 [facility] Comment on above: Performed By: #### 4 [id number] ####[facility] [address] [place] [address] Glenn Gudino M.D. [id number] MCH (RBC) [Entitic mass] 29.2 pg Normal 26.0-34.0 [facility] Comment on above: Performed By: #### 4 [id number] ####[facility] [address] [place] [address] Glenn Gudino M.D. [id number] MCV (RBC) [Entitic vol] 90.0 fL Normal 80.0-100.0 [facility] Comment on above: Performed By: #### 4 [id number] ####[facility] [address] [place], [place] [address] Glenn Gudino M.D. [id number] MEAN CORPUSCULAR HEMOGLOBIN CONC 32.4 g/dL Normal 31.0-37.0 [facility] Comment on above: Performed By: #### 4 5218 ####[facility] [address] [place], [place] [address] Glenn Gudino M.D. [id number] Platelet mean volume (Bld) [Entitic vol] 9.8 fL Normal 9.4-12.4 [facility] Comment on above: Performed By: #### 4 [id number] ####[facility] [address] [place], [place] [address] Glenn Gudino M.D. [id number] Platelets (Bld) [#/Vol] 68 10*3/uL Low 150-400 [facility] Comment on above: Result Comment: Zuleima pheral smear reviewed manually Performed By: #### 4 5218 ####[facility] [address] [place] [address] Glenn Gudino M.D. [id number] RBC (Bld) [#/Vol] 3.60 10*6/uL Low 4.00-5.20 [facility] Comment on above: Performed By: #### 4 [id number] ####[facility] [address] [place], [place] [address] Glenn Gudino M.D. [id number] WBC (Bld) [#/Vol] 9.35 10*3/uL Normal 4.50-11.00 [facility] Comment on above: Result Comment: Neut rophilia with Left Shift Confirmed. Performed By: #### 4 [id number] ####[facility] [address] [place], [place] [address] Glenn Gudino M.D. [id number] AUTO NRBC 0.0 % Normal [facility] Comment on above: Performed By: #### 4 [id number] ####[facility] [address] [place], [place] [address] Glenn Gudino M.D. [id number] AUTO NRBC ABS COUNT 0.00 K/mcL Normal 0.00-0.00 [facility] Comment on above: Performed By: #### 4 [id number] ####[facility] [address] [place], [place] [address] lGenn Gudino M.D. [id number] Erythrocyte distribution width (RBC) [Ratio] 17.1 % High 11.6-14.8 [facility] Comment on above: Performed By: #### 4 5218 ####[facility] [address] [place] [address] Glenn Gudino M.D. [id number] Hematocrit (Bld) [Volume fraction] 38.0 % Normal 36.0-46.0 [facility] Comment on above: Result Comment: Resu lts checked Performed By: #### 4 [id number] ####[facility] [address] [place] [address] Glenn Gudino M.D. [id number] Hemoglobin (Bld) [Mass/Vol] 12.3 g/dL Normal 12.0-16.0 [facility] Comment on above: Result Comment: Resu lts checked Performed By: #### 4 5218 ####[facility] [address] [place] [address] Glenn Gudino M.D. [id number] MCH (RBC) [Entitic mass] 28.0 pg Normal 26.0-34.0 [facility] Comment on above: Performed By: #### 4 5218 ####[facility] [address] [place] [address] Glenn Gudino M.D. [id number] MCV (RBC) [Entitic vol] 86.4 fL Normal 80.0-100.0 [facility] Comment on above: Performed By: #### 4 2918 ####[facility] [address] [place], [place] [address] Glenn Gudino M.D. [id number] MEAN CORPUSCULAR HEMOGLOBIN CONC 32.4 g/dL Normal 31.0-37.0 [facility] Comment on above: Performed By: #### 4 7218 ####[facility] [address] [place] [address] 82408 Glenn Gudino M.D. [id number] Platelet mean volume (Bld) [Entitic vol] 9.3 fL Low 9.4-12.4 [facility] Comment on above: Performed By: #### 4 [id number] ####[facility] [address] [place], [place] [address] Glenn Gudino M.D. [id number] Platelets (Bld) [#/Vol] 201 10*3/uL Normal 150-400 [facility] Comment on above: Performed By: #### 4 [id number] ####[facility] [address] [place], [place] [address] Glenn Gudino M.D. [id number] RBC (Bld) [#/Vol] 4.40 10*6/uL Normal 4.00-5.20 [facility] Comment on above: Performed By: #### 4 [id number] ####[facility] [address] [place], [place] [address] Glenn Gudino M.D. [id number] WBC (Bld) [#/Vol] 6.12 10*3/uL Normal 4.50-11.00 [facility] Comment on above: Performed By: #### 4 [id number] ####[facility] [address] [place], [place] [address] Glenn Gudino M.D. [id number] CITRATED TEG ([facility] ONLY)on 01-24-2024 (CFF-MA) CITRATED FUNCTIONAL FIBRINOGEN - MA 12.3 mm Low 15.0-32.0 [facility] Comment on above: Performed By: #### 4 8962 ####[facility] [address] [place] [address] 42396 Glenn Gudino M.D. [id number] ([id number]) CITRATED KAOLIN - LYSIS 30 MIN AFTER MA 0.0 % Normal 0.0-2.6 [facility] Comment on above: Performed By: #### 4 8962 ####[facility] [address] [place], [place] [address] Glenn Gudino M.D. [id number] (CK-R) CITRATED KAOLIN - REACTION TIME 6.7 min Normal 4.6-9.1 [facility] Comment on above: Performed By: #### 4 8962 ####[facility] [address] [place], [place] [address] Glenn Gudino M.D. [id number] (SAND WHEELER-MA) CITRATED RAPID TEG - MA 41.8 mm Low 52.0-70.0 [facility] Comment on above: Performed By: #### 4 8962 ####[facility] [address] [place], [place] [address] Glenn Gudino M.D. [id number] COMPREHENSIVE METABOLIC PANE Magdaleno 01-24-2024 Albumin [Mass/Vol] 1.1 g/dL Low 3.2-5.2 [facility] Comment on above: Order Comment: [facility] has implemented the eGFR calculation approach that does not have a coefficient for race that conforms to the NKF-ASN Task Force Recommendations. Performed By: #### 4 6126 ####[facility] [address] [place], [place] [address] Glenn Gduino M.D. [id number] ALP [Catalytic activity/Vol] 23 U/L Low 40-150 [facility] Comment on above: Order Comment: [facility] has implemented the eGFR calculation approach that does not have a coefficient for race that conforms to the NKF-ASN Task Force Recommendations. Performed By: #### 4 6142 ####[facility] [address] [place] [address] 65521 Glenn Gudino M.D. [id number] ALT [Catalytic activity/Vol] 10 U/L Normal 0-35 U/L [facility] Comment on above: Order Comment: [facility] has implemented the eGFR calculation approach that does not have a coefficient for race that conforms to the NKF-ASN Task Force Recommendations. Performed By: #### 4 6126 ####[facility] [address] [place], [place] [address] lGenn Gudino M.D. [id number] AST [Catalytic activity/Vol] 27 U/L Normal 0-35 U/L [facility] Comment on above: Order Comment: [facility] has implemented the eGFR calculation approach that does not have a coefficient for race that conforms to the NKF-ASN Task Force Recommendations. Result Comment: Slig htly Hemolyzed Performed By: #### 4 6126 ####[facility] [address] [place], [place] [address] Glenn Gudino M.D. [id number] BILIRUBIN TOTAL < Normal 0.0-1.3 [facility] Comment on above: Order Comment: [facility] has implemented the eGFR calculation approach that does not have a coefficient for race that conforms to the NKF-ASN Task Force Recommendations. Performed By: #### 4 6126 ####[facility] [address] [place], [place] [address] Glenn Gudino M.D. [id number] Protein [Mass/Vol] 2.5 g/dL Low 6.0-8.0 [facility] Comment on above: Order Comment: [facility] has implemented the eGFR calculation approach that does not have a coefficient for race that conforms to the NKF-ASN Task Force Recommendations. Performed By: #### 4 6126 ####[facility] [address] [place], [place] [address] Glenn Gudino M.D. [id number] Albumin [Mass/Vol] 2.9 g/dL Low 3.2-5.2 [facility] Comment on above: Order Comment: [facility] has implemented the eGFR calculation approach that does not have a coefficient for race that conforms to the NKF-ASN Task Force Recommendations. Performed By: #### 4 [id number] ####[facility] [address] [place] [address] [id number] Glenn Gudino M.D. [id number] ALP [Catalytic activity/Vol] 67 U/L Normal 40-150 [facility] Comment on above: Order Comment: [facility] has implemented the eGFR calculation approach that does not have a coefficient for race that conforms to the NKF-ASN Task Force Recommendations. Performed By: #### 4 [id number] ####[facility] [address] [place] [address] [id number] Glenn Gudino M.D. [id number] ALT [Catalytic activity/Vol] 11 U/L Normal 0-35 U/L [facility] Comment on above: Order Comment: [facility] has implemented the eGFR calculation approach that does not have a coefficient for race that conforms to the NKF-ASN Task Force Recommendations. Performed By: #### 4 [id number] ####[facility] [address] [place] [address] 36685 Glenn Gudino M.D. [id number] Anion gap [Moles/Vol] 15 mmol/L Normal 10-20 [facility] Comment on above: Order Comment: [facility] has implemented the eGFR calculation approach that does not have a coefficient for race that conforms to the NKF-ASN Task Force Recommendations. Performed By: #### 4 [id number] ####[facility] [address] [place] [address] [id number] Glenn Gudino M.D. [id number] AST [Catalytic activity/Vol] 23 U/L Normal 0-35 U/L [facility] Comment on above: Order Comment: [facility] has implemented the eGFR calculation approach that does not have a coefficient for race that conforms to the NKF-ASN Task Force Recommendations. Performed By: #### 4 [id number] ####[facility] [address] [place] [address] [id number] Glenn Gudino M.D. [id number] Bilirubin [Mass/Vol] 0.6 mg/dL Normal 0.0-1.3 [facility] Comment on above: Order Comment: [facility] has implemented the eGFR calculation approach that does not have a coefficient for race that conforms to the NKF-ASN Task Force Recommendations. Performed By: #### 4 [id number] ####[facility] [address] [place] [address] Glenn Gudino M.D. [id number] Calcium [Mass/Vol] 8.1 mg/dL Low 8.4-10.2 [facility] Comment on above: Order Comment: [facility] has implemented the eGFR calculation approach that does not have a coefficient for race that conforms to the NKF-ASN Task Force Recommendations. Performed By: #### 4 [id number] ####[facility] [address] [place], [place] [address] Glenn Gudino M.D. [id number] Chloride [Moles/Vol] 102 mmol/L Normal 98-108 [facility] Comment on above: Order Comment: [facility] has implemented the eGFR calculation approach that does not have a coefficient for race that conforms to the NKF-ASN Task Force Recommendations. Performed By: #### 4 [id number] ####[facility] [address] [place], [place] [address] Glenn Gudino M.D. [id number] Creatinine [Mass/Vol] 1.88 mg/dL High 0.60-1.10 [facility] Comment on above: Order Comment: [facility] has implemented the eGFR calculation approach that does not have a coefficient for race that conforms to the NKF-ASN Task Force Recommendations. Performed By: #### 4 [id number] ####[facility] [address] [place], [place] [address] Glenn Gudino M.D. [id number] EGFR 30 mL/min/1.73 m2 Low >=60 [facility] Comment on above: Order Comment: [facility] has implemented the eGFR calculation approach that does not have a coefficient for race that conforms to the NKF-ASN Task Force Recommendations. Result Comment: Joi mated GFR was calculated using the 2020 CKD-EPI creatinine equation. Performed By: #### 4 [id number] ####[facility] [address] [place], [place] [address] Glenn Gudino M.D. [id number] Glucose [Mass/Vol] 83 mg/dL Normal 65-99 [facility] Comment on above: Order Comment: [facility] has implemented the eGFR calculation approach that does not have a coefficient for race that conforms to the NKF-ASN Task Force Recommendations. Performed By: #### 4 [id number] ####[facility] [address] [place] [address] [id number] Glenn Gudino M.D. [id number] HCO3 (Bld) [Moles/Vol] 20 mmol/L Low 21-32 [facility] Comment on above: Order Comment: [facility] has implemented the eGFR calculation approach that does not have a coefficient for race that conforms to the NKF-ASN Task Force Recommendations. Performed By: #### 4 6126 ####[facility] [address] [place] [address] 38773 Glenn Gudino M.D. [id number] Potassium [Moles/Vol] 4.5 mmol/L Normal 3.5-5.1 [facility] Comment on above: Order Comment: [facility] has implemented the eGFR calculation approach that does not have a coefficient for race that conforms to the NKF-ASN Task Force Recommendations. Performed By: #### 4 [id number] ####[facility] [address] [place] [address] 34324 Glenn Gudino M.D. [id number] Protein [Mass/Vol] 6.7 g/dL Normal 6.0-8.0 [facility] Comment on above: Order Comment: [facility] has implemented the eGFR calculation approach that does not have a coefficient for race that conforms to the NKF-ASN Task Force Recommendations. Performed By: #### 4 [id number] ####[facility] [address] [place] [address] 58205 Glenn Gudino M.D. [id number] Sodium [Moles/Vol] 132 mmol/L Low 135-145 [facility] Comment on above: Order Comment: [facility] has implemented the eGFR calculation approach that does not have a coefficient for race that conforms to the NKF-ASN Task Force Recommendations. Performed By: #### 4 [id number] ####[facility] [address] [place] [address] 29857 Glenn Gudino M.D. [id number] Urea nitrogen [Mass/Vol] 33 mg/dL High 8-25 [facility] Comment on above: Order Comment: [facility] has implemented the eGFR calculation approach that does not have a coefficient for race that conforms to the NKF-ASN Task Force Recommendations. Performed By: #### 4 6126 ####[facility] [address] [place] [address] 70883 Glenn Gudino M.D. [id number] Urea nitrogen/Creatinine [Mass ratio] 17.6 mg/mg Normal 10.0-20.0 [facility] Comment on above: Order Comment: [facility] has implemented the eGFR calculation approach that does not have a coefficient for race that conforms to the NKF-ASN Task Force Recommendations. Performed By: #### 4 [id number] ####[facility] [address] [place] [address] [id number] Glenn Gudino M.D. [id number] CONSULTon 01-24-2024 CONSULT Normal [facility] ELUTIONARC-WAAon 01-24-2024 ELUTIONARC-WAA Normal [facility] Comment on above: Performed By: #### E [id number]_WAA ####[facility] [address] [place] [address] Nurys Oneill MD [id number] RMHTS FIBRINOGENon 01-24-2024 FIBRINOGEN LEVEL 302 mg/dL Normal 224-483 [facility] Comment on above: Performed By: #### 4 5616 ####[facility] [address] [place] [address] Glenn Gudino M.D. [id number] LACTIC ACID, PLASMAon 2023 LACTIC ACID, PLASMA 5.3 mmol/L Off scale high 0.6-2.0 [facility] Comment on above: Performed By: #### 4 6053 ####[facility] [address] [place] [address] Glenn Gudino M.D. [id number] MAGNESIUM LEVELon 01-24-2024 Magnesium [Mass/Vol] 1.3 mg/dL Low 1.6-2.4 [facility] Comment on above: Performed By: #### 4 6109 ####[facility] [address] [place] [address] Glenn Gudino M.D. [id number] ROD STRAIGHTENER AEROBIC AND A NAEROBIC CULTUREon 01-24-2024 ROD STRAIGHTENER AEROBIC AND ANAEROBIC CULTURE CULTURE No Growth after 5 days GRAM STAIN RESULT Many RBC Many WBC No Organisms Seen Normal [facility] Comment on above: Performed By: #### L [id number] ####[facility] [address] [place], [place] [address] Glenn Gudino M.D. [id number] ROD STRAIGHTENER AFB CULTUREon 01-24-2024 ROD STRAIGHTENER AFB CULTURE AFB CULTURE No Growth of Acid Fast Bacilli after 8 Weeks AFB STAIN (2018) No Acid Fast Bacilli Seen Normal [facility] Comment on above: Performed By: #### L [id number] ####[facility] [address] [place] [address] Glenn Gudino M.D. [id number] ROD STRAIGHTENER FUNGUS CULTUR Tim 01-24-2024 ROD STRAIGHTENER FUNGUS CULTURE FUNGUS CULTURE No Fungus Isolated At 4 Weeks FUNGAL SMEAR No Fungal or Yeast Elements Normal [facility] Comment on above: Performed By: #### L [id number] ####[facility] [address] [place], [place] [address] Glenn Gudino M.D. [id number] OP NOTEon 01-24-2024 OP NOTE Normal [facility] OP NOTE Normal [facility] PERIPHERAL SMEAR REVIEW ([facility] ONLY)on 01-24-2024 SMEAR REVIEW See Comment Normal [facility] Comment on above: Result Comment: Smea r reviewed for possible immature cells. Performed By: #### C [id number] ####[facility] [address] [place] [address] Glenn Gudino M.D. [id number] PHOSPHORUSon 01-24-2024 Phosphate [Mass/Vol] 4.7 mg/dL High 2.8-4.1 [facility] Comment on above: Performed By: #### 4 6299 ####[facility] [address] [place], [place] [address] Glenn Gudino M.D. [id number] POC ABG SURG - RALSon 2023 BASE EXCESS, ARTERIAL ISTAT -11 Low -2-2 [facility] Comment on above: Order Comment: Criti cherrie result acted upon time of test. Test performed at bedside. Performed By: #### 4 [id number] ####[facility] [address] [place] [address] [id number] RMHPOC Glucose [Mass/Vol] 267 mg/dL High 65-99 [facility] Comment on above: Order Comment: Criti cherrie result acted upon time of test. Test performed at bedside. Performed By: #### 4 [id number] ####[facility] [address] [place] [address] [id number] RMHPOC HCO3 (Bld) [Moles/Vol] 14.4 mmol/L Low 22.0-26.0 [facility] Comment on above: Order Comment: Criti cherrie result acted upon time of test. Test performed at bedside. Performed By: #### 4 [id number] ####[facility] [address] [place] [address] [id number] RMHPOC Hematocrit (Bld) [Volume fraction] 20 % Low 36-46 [facility] Comment on above: Order Comment: Criti cherrie result acted upon time of test. Test performed at bedside. Performed By: #### 4 [id number] ####[facility] [address] [place] [address] [id number] RMHPOC Hemoglobin (Bld) [Mass/Vol] 6.8 g/dL Off scale low 12.0-16.0 [facility] Comment on above: Order Comment: Criti cherrie result acted upon time of test. Test performed at bedside. Performed By: #### 4 [id number] ####[facility] [address] [place] [address] [id number] RMHPOC Oxygen saturation in Blood 100.0 % High 92.0-99.0 [facility] Comment on above: Order Comment: Criti cherrie result acted upon time of test. Test performed at bedside. Performed By: #### 4 [id number] ####[facility] [address] [place] [address] [id number] [facility] PCO2 ARTERIAL 31.2 mm Hg Low 35.0-45.0 [facility] Comment on above: Order Comment: Criti cherrie result acted upon time of test. Test performed at bedside. Performed By: #### 4 [id number] ####[facility] [address] [place] [address] [id number] RM[facility] PH ARTERIAL 7.27 Low 7.35-7.45 [facility] Comment on above: Order Comment: Criti cherrie result acted upon time of test. Test performed at bedside. Performed By: #### 4 8735 ####[facility] [address] [place] [address] [id number] RMHPOC PO2 ARTERIAL 464 mm Hg High 80-100 [facility] Comment on above: Order Comment: Criti cherrie result acted upon time of test. Test performed at bedside. Performed By: #### 4 [id number] ####[facility] [address] [place] [address] [id number] RMHPOC POC IONIZED CALCIUM 3.5 mg/dL Low 4.5-5.3 [facility] Comment on above: Order Comment: Criti cherrie result acted upon time of test. Test performed at bedside. Performed By: #### 4 [id number] ####[facility] [address] [place] [address] [id number] RMHPOC Potassium [Moles/Vol] 3.9 mmol/L Normal 3.5-5.1 [facility] Comment on above: Order Comment: Criti cherrie result acted upon time of test. Test performed at bedside. Performed By: #### 4 [id number] ####[facility] [address] [place] [address] [id number] RMHPOC Sodium [Moles/Vol] 140 mmol/L Normal 135-145 [facility] Comment on above: Order Comment: Criti cherrie result acted upon time of test. Test performed at bedside. Performed By: #### 4 [id number] ####[facility] [address] [place] [address] [id number] RM[facility] BASE EXCESS, ARTERIAL ISTAT -12 Low -2-2 [facility] Comment on above: Performed By: #### 4 9869 ####[facility] [address] [place] [address] [id number] RMHPOC Glucose [Mass/Vol] 164 mg/dL High 65-99 [facility] Comment on above: Performed By: #### 4 1946 ####[facility] [address] [place] [address] [id number] RM[facility] HCO3 (Bld) [Moles/Vol] 14.8 mmol/L Low 22.0-26.0 [facility] Comment on above: Performed By: #### 4 4637 ####[facility] [address] [place] [address] [id number] RM[facility] Hematocrit (Bld) [Volume fraction] 32 % Low 36-46 [facility] Comment on above: Performed By: #### 4 [id number] ####[facility] [address] [place] [address] [id number] RM[facility] Hemoglobin (Bld) [Mass/Vol] 10.9 g/dL Low 12.0-16.0 [facility] Comment on above: Performed By: #### 4 [id number] ####[facility] [address] [place] [address] [id number] RMHPOC Oxygen saturation in Blood 100.0 % High 92.0-99.0 [facility] Comment on above: Performed By: #### 4 [id number] ####[facility] [address] [place] [address] [id number] RM[facility] PCO2 ARTERIAL 36.0 mm Hg Normal 35.0-45.0 [facility] Comment on above: Performed By: #### 4 0737 ####[facility] [address] [place] [address] [id number] RM[facility] PH ARTERIAL 7.22 Low 7.35-7.45 [facility] Comment on above: Performed By: #### 4 4237 ####[facility] [address] [place] [address] [id number] RM[facility] PO2 ARTERIAL 444 mm Hg High 80-100 [facility] Comment on above: Performed By: #### 4 4237 ####[facility] [address] [place] [address] [id number] RM[facility] POC IONIZED CALCIUM 3.7 mg/dL Low 4.5-5.3 [facility] Comment on above: Performed By: #### 4 2933 ####[facility] [address] [place] [address] [id number] RMHPOC Potassium [Moles/Vol] 4.6 mmol/L Normal 3.5-5.1 [facility] Comment on above: Performed By: #### 4 [id number] ####[facility] [address] [place] [address] [id number] RMHP[facility] Sodium [Moles/Vol] 135 mmol/L Normal 135-145 [facility] Comment on above: Performed By: #### 4 [id number] ####[facility] [address] [place] [address] [id number] RM[facility] POC ACTIVATED CLOTTING TIME - [facility] 01-24-2024 POC ACT KAOLIN 274 seconds Normal [facility] Comment on above: Performed By: #### 4 8122 ####[facility] [address] [place] [address] [id number] RM[facility] POC ARTERIAL BLOOD GAS PANEL -PULM - [facility] 01-24-2024 BASE EXCESS, ARTERIAL -11.8 Low -2.0-2.0 [facility] Comment on above: Order Comment: Criti cherrie result acted upon time of test. Test performed at bedside. Performed By: #### 4 [id number] ####[facility] [address] [place] [address] [id number] RM[facility]OC CALCIUM IONIZED 4.4 mg/dL Low 4.5-5.3 [facility] Comment on above: Order Comment: Criti cherrie result acted upon time of test. Test performed at bedside. Performed By: #### 4 [id number] ####[facility] [address] [place] [address] [id number] RM[facility] CARBOXYHEMOGLOBIN 1.5 % of total Hb Normal <=1.5 [facility] Comment on above: Order Comment: Criti cherrie result acted upon time of test. Test performed at bedside. Result Comment: Refe rence Ranges:Suburban Non-smokers: <1.5%Smokers: 1.5-5.0%Heavy Smokers: 5.0-9.0% Performed By: #### 4 [id number] ####[facility] [address] [place] [address] [id number] RM[facility] Chloride [Moles/Vol] 115 mmol/L High 98-108 [facility] Comment on above: Order Comment: Criti cherrei result acted upon time of test. Test performed at bedside. Performed By: #### 4 [id number] ####[facility] [address] [place] [address] [id number] RM[facility] FIO2 30 Normal [facility] Comment on above: Order Comment: Criti cherrie result acted upon time of test. Test performed at bedside. Performed By: #### 4 [id number] ####[facility] [address] [place] [address] [id number] RM[facility] Glucose [Mass/Vol] 120 mg/dL High 65-99 [facility] Comment on above: Order Comment: Criti cherrie result acted upon time of test. Test performed at bedside. Performed By: #### 4 [id number] ####[facility] [address] [place] [address] [id number] RM[facility] HCO3 (Bld) [Moles/Vol] 13.9 mmol/L Low 22.0-26.0 [facility] Comment on above: Order Comment: Criti cherrie result acted upon time of test. Test performed at bedside. Performed By: #### 4 [id number] ####[facility] [address] [place] [address] [id number] RM[facility] Hematocrit (Bld) [Volume fraction] 34.5 % Low 36.0-46.0 [facility] Comment on above: Order Comment: Criti cherrie result acted upon time of test. Test performed at bedside. Performed By: #### 4 [id number] ####[facility] [address] [place] [address] [id number] RM[facility] Hemoglobin (Bld) [Mass/Vol] 11.3 g/dL Low 12.0-16.0 [facility] Comment on above: Order Comment: Criti cherrie result acted upon time of test. Test performed at bedside. Performed By: #### 4 [id number] ####[facility] [address] [place] [address] [id number] RM[facility] LACTIC ACID, WHOLE BLOOD 5.2 mmol/L Off scale high 0.6-2.0 [facility] Comment on above: Order Comment: Criti cherrie result acted upon time of test. Test performed at bedside. Performed By: #### 4 [id number] ####[facility] [address] [place] [address] [id number] RM[facility] METHEMOGLOBIN < Normal 0.0-2.0 [facility] Comment on above: Order Comment: Criti cherrie result acted upon time of test. Test performed at bedside. Performed By: #### 4 [id number] ####[facility] [address] [place] [address] [id number] RM[facility] O2HB 92.3 % Low 94.0-98.0 [facility] Comment on above: Order Comment: Criti cherrie result acted upon time of test. Test performed at bedside. Performed By: #### 4 [id number] ####[facility] [address] [place] [address] [id number] RMHPOC Oxygen saturation in Blood 94.1 % Normal 92.0-99.0 [facility] Comment on above: Order Comment: Criti cherrie result acted upon time of test. Test performed at bedside. Performed By: #### 4 [id number] ####[facility] [address] [place] [address] [id number] RM[facility] PCO2 ARTERIAL 30.3 mm Hg Low 35.0-45.0 [facility] Comment on above: Order Comment: Criti cherrie result acted upon time of test. Test performed at bedside. Performed By: #### 4 [id number] ####[facility] [address] [place] [address] [id number] RM[facility] PEEP RAD 5 Normal [facility] Comment on above: Order Comment: Criti cherrie result acted upon time of test. Test performed at bedside. Performed By: #### 4 8766 ####[facility] [address] [place] [address] [id number] RM[facility] PH ARTERIAL 7.27 Low 7.35-7.45 [facility] Comment on above: Order Comment: Criti cherrie result acted upon time of test. Test performed at bedside. Performed By: #### 4 [id number] ####[facility] [address] [place] [address] [id number] RM[facility] PO2 ARTERIAL 76 mm Hg Low 80-100 [facility] Comment on above: Order Comment: Criti cherrie result acted upon time of test. Test performed at bedside. Performed By: #### 4 [id number] ####[facility] [address] [place] [address] [id number] RM[facility] Potassium [Moles/Vol] 4.6 mmol/L Normal 3.5-5.1 [facility] Comment on above: Order Comment: Criti cherrie result acted upon time of test. Test performed at bedside. Performed By: #### 4 [id number] ####[facility] [address] [place] [address] [id number] RM[facility] RESP RATE RAD 22 [facility] Comment on above: Order Comment: Criti cherrie result acted upon time of test. Test performed at bedside. Performed By: #### 4 [id number] ####[facility] [address] [place] [address] [id number] RM[facility] RESULT NOTIFICATION Critical results giv en to:[id number] [facility] Comment on above: Order Comment: Criti cherrie result acted upon time of test. Test performed at bedside. Performed By: #### 4 [id number] ####[facility] [address] [place] [address] [id number] RM[facility] Sodium [Moles/Vol] 134 mmol/L Low 135-145 [facility] Comment on above: Order Comment: Criti cherrie result acted upon time of test. Test performed at bedside. Performed By: #### 4 [id number] ####[facility] [address] [place] [address] [id number] RM[facility] POC GLUCOSE - Yoanna 024 Glucose [Mass/Vol] 154 mg/dL High 65-99 [facility] Comment on above: Performed By: #### 4 6932 ####[facility] [address] [place] [address] [id number] RMHPOC Glucose [Mass/Vol] 122 mg/dL High [facility] Comment on above: Performed By: #### 4 6932 ####[facility] [address] [place] [address] [id number] RM[facility] POTASSIUM LEVELon 01-24-2024 Potassium [Moles/Vol] 4.7 mmol/L Normal 3.5-5.1 [facility] Comment on above: Performed By: #### 4 6351 ####[facility] [address] [place] [address] Glenn Gudino M.D. [id number] PT/INRon 01-24-2024 INR Coag (PPP) [Relative time] 1.4 {INR} High 0.8-1.1 [facility] Comment on above: Order Comment: Jennifer retana the induction phase of oral anticoagulation, the INR may not reflect the anticoagulation status of the patient. Therapeutic ranges for INR's are:Most clinical situations: INR 2.0-3.0Mechanical Prosthetic Valve: INR 2.5-3.5Critical: INR >5.0 Performed By: #### 4 [id number] ####[facility] [address] [place] [address] Glenn Gudino M.D. [id number] PT Coag (PPP) [Time] 17.5 s High 11.8-14.3 [facility] Comment on above: Order Comment: Jennifer retana the induction phase of oral anticoagulation, the INR may not reflect the anticoagulation status of the patient. Therapeutic ranges for INR's are:Most clinical situations: INR 2.0-3.0Mechanical Prosthetic Valve: INR 2.5-3.5Critical: INR >5.0 Performed By: #### 4 [id number] ####[facility] [address] [place], [place] [id number] Glenn Gudino M.D. [id number] INR Coag (PPP) [Relative time] 1.6 {INR} High 0.8-1.1 [facility] Comment on above: Order Comment: Jennifer retana the induction phase of oral anticoagulation, the INR may not reflect the anticoagulation status of the patient. Therapeutic ranges for INR's are:Most clinical situations: INR 2.0-3.0Mechanical Prosthetic Valve: INR 2.5-3.5Critical: INR >5.0 Result Comment: Resu lts checked. Performed By: #### 4 [id number] ####[facility] [address] [place] [address] Glenn Gudino M.D. [id number] PT Coag (PPP) [Time] 19.5 s High 11.8-14.3 [facility] Comment on above: Order Comment: Jennifer retana the induction phase of oral anticoagulation, the INR may not reflect the anticoagulation status of the patient. Therapeutic ranges for INR's are:Most clinical situations: INR 2.0-3.0Mechanical Prosthetic Valve: INR 2.5-3.5Critical: INR >5.0 Result Comment: Resu lts checked. Performed By: #### 4 [id number] ####[facility] [address] [place] [address] Glenn Gudino M.D. [id number] INR Coag (PPP) [Relative time] 1.1 {INR} Normal 0.8-1.1 [facility] Comment on above: Order Comment: Jennifer retana the induction phase of oral anticoagulation, the INR may not reflect the anticoagulation status of the patient. Therapeutic ranges for INR's are:Most clinical situations: INR 2.0-3.0Mechanical Prosthetic Valve: INR 2.5-3.5Critical: INR >5.0 Performed By: #### 4 [id number] ####[facility] [address] [place] [address] Glenn Gudino M.D. [id number] PT Coag (PPP) [Time] 13.6 s Normal 11.8-14.3 [facility] Comment on above: Order Comment: Jennifer retana the induction phase of oral anticoagulation, the INR may not reflect the anticoagulation status of the patient. Therapeutic ranges for INR's are:Most clinical situations: INR 2.0-3.0Mechanical Prosthetic Valve: INR 2.5-3.5Critical: INR >5.0 Performed By: #### 4 [id number] ####[facility] [address] [place] [address] Glenn Gudino M.D. [id number] REFLEX LACTIC ACID, PLASMAon 01-24-2024 LACTIC ACID, PLASMA 2.0 mmol/L Normal 0.6-2.0 [facility] Comment on above: Performed By: #### L [id number] ####[facility] [address] [place] [address] Glenn Gudino M.D. [id number] TISSUE AEROBIC AND ANAEROBIC CULTUREon 01-24-2024 TISSUE AEROBIC AND ANAEROBIC CULTURE CULTURE No Growth after 5 days GRAM STAIN RESULT Many RBC Few WBC No Organisms Seen [facility] Comment on above: Performed By: #### 4 [id number] ####[facility] [address] [place], [place] [address] Glenn Gudino M.D. [id number] TISSUE AFB CULTUREon 024 TISSUE AFB CULTURE AFB CULTURE No Growth of Acid Fast Bacilli after 8 Weeks AFB STAIN (2018) No Acid Fast Bacilli Seen [facility] Comment on above: Performed By: #### 4 [id number] ####[facility] [address] [place], [place] [address] Glenn Gudino M.D. [id number] TISSUE FUNGUS CULTUREon 12-28 TISSUE FUNGUS CULTURE FUNGUS CULTURE No Fungus Isolated At 4 Weeks FUNGAL SMEAR No Fungal or Yeast Elements Normal [facility] Comment on above: Performed By: #### 4 [id number] ####[facility] [address] [place], [place] [address] Glenn Gudino M.D. [id number] TRANSFUSION CONSULTon 2023 TRANSFUSION CONSULT [facility] Comment on above: Performed By: #### 4 [id number] ####[facility] [address] [place] [address] Glenn Gudino M.D. [id number] TRIGLYCERIDESon 01-24-2024 Triglyceride [Mass/Vol] 72 mg/dL Normal 30-150 [facility] Comment on above: Result Comment: Lucila onal Cholesterol Education Program Guidelines: TriglycerideNormal: <150 mg/dLBorderline High: 150-199 mg/dLHigh: 200-499 mg/dLVery High: greater than or equal to 500 mg/dL Performed By: #### 4 6606 ####[facility] [address] [place] [address] Glenn Gudino M.D. [id number] TYPE AND SCREENon 01-24-2024 TYPE AND SCREEN ABORH: O Positive AB SCREEN: Positive EXPIRATION DATE: 01/27/2024 23:59 EST [facility] Comment on above: Performed By: #### 4 6619 ####[facility] [address] [place] [address] Nurys Oneill MD [id number] RMHTS XR ABDOMEN /KUB/FLAT PLATE/1 VIEWon 01-24-2024 XR ABDOMEN /KUB/FLAT PLATE/1 VIEW [facility] Comment on above: Order Comment: Injur y/Trauma or Illness?:Illness/OtherHow long have you had these symptoms (acute/chronic)?:UnknownReason for exam?:NG/OG tube placementHistory of cancer?:uSurgeries, chemotherapy, or radiation?:uType of Exam?:UnknownAdditional signs and symptoms?:. XR CHEST PA/APon 01-24-2024 XR CHEST PA/AP [facility] Comment on above: Order Comment: Injur y/Trauma or Illness?:Illness/OtherHow long have you had these symptoms (acute/chronic)?:UnknownReason for exam?:ettHistory of cancer?:uSurgeries, chemotherapy, or radiation?:uType of Exam?:InitialAdditional signs and symptoms?:no XR CHEST PA/AP [facility] Comment on above: Order Comment: Injur y/Trauma or Illness?:Illness/OtherHow long have you had these symptoms (acute/chronic)?:UnknownReason for exam?:intubatedHistory of cancer?:uSurgeries, chemotherapy, or radiation?:uType of Exam?:UnknownAdditional signs and symptoms?:. ANTIBODY IDENTIFICATION-Con 01-23-2024 ANTIBODY IDENTIFICATION-C [facility] Comment on above: Performed By: #### 4 6427_Anti-C ####[facility] [address] [address] Nurys Oneill MD [id number] RMHTS ANTIBODY IDENTIFICATION-FYAo n 01-23-2024 ANTIBODY IDENTIFICATION-FYA [facility] Comment on above: Performed By: #### 4 6427_Anti-Fya ####[facility] [address] Nurys Oneill MD [id number] RMHTS ANTIBODY IDENTIFICATION-WAAo n 01-23-2024 ANTIBODY IDENTIFICATION-WAA [facility] Comment on above: Performed By: #### 4 [id number]_WAA ####[facility] [address] [place] [address] Nurys Oneill MD [id number] RMHTS ANTIBODY IDENTIFICATION-WAA [facility] Comment on above: Performed By: #### 4 [id number]_WAA ####[facility] [address] [place] [address] Nurys Oneill MD [id number] RMHTS C PATIENT ANTIGEN TYPINGon 0 01-23-2024 C PATIENT ANTIGEN TYPING Negative [facility] Comment on above: Performed By: #### P -C ####[facility] [address] [place] [address] Nurys Oneill MD [id number] RMHTS CBCon 01-23-2024 AUTO NRBC 0.0 % [facility] Comment on above: Performed By: #### 4 [id number] ####[facility] [address] [place] [address] Glenn Gudino M.D. [id number] AUTO NRBC ABS COUNT 0.00 K/mcL Normal 0.00-0.00 [facility] Comment on above: Performed By: #### 4 [id number] ####[facility] [address] [place] [address] Glenn Gudino M.D. [id number] Erythrocyte distribution width (RBC) [Ratio] 18.8 % High 11.6-14.8 [facility] Comment on above: Performed By: #### 4 [id number] ####[facility] [address] [place], [place] [address] Glenn Gudino M.D. [id number] Hematocrit (Bld) [Volume fraction] 27.3 % Low 36.0-46.0 [facility] Comment on above: Performed By: #### 4 [id number] ####[facility] [address] [place], [place] [address] Glenn Gudino M.D. [id number] Hemoglobin (Bld) [Mass/Vol] 8.7 g/dL Low 12.0-16.0 [facility] Comment on above: Performed By: #### 4 [id number] ####[facility] [address] [place], [place] [address] Glenn Gudino M.D. [id number] MCH (RBC) [Entitic mass] 27.7 pg Normal 26.0-34.0 [facility] Comment on above: Performed By: #### 4 [id number] ####[facility] [address] [place], [place] [address] Glenn Gudino M.D. [id number] MCV (RBC) [Entitic vol] 86.9 fL Normal 80.0-100.0 [facility] Comment on above: Performed By: #### 4 [id number] ####[facility] [address] [place] [address] Glenn Gudino M.D. [id number] MEAN CORPUSCULAR HEMOGLOBIN CONC 31.9 g/dL Normal 31.0-37.0 [facility] Comment on above: Performed By: #### 4 [id number] ####[facility] [address] [place], [place] [address] Glenn Gudino M.D. [id number] Platelet mean volume (Bld) [Entitic vol] 9.0 fL Low 9.4-12.4 [facility] Comment on above: Performed By: #### 4 [id number] ####[facility] [address] [place], [place] [address] Glenn Gudino M.D. [id number] Platelets (Bld) [#/Vol] 209 10*3/uL Normal 150-400 [facility] Comment on above: Performed By: #### 4 [id number] ####[facility] [address] [place], [place] [address] Glenn Gudino M.D. [id number] RBC (Bld) [#/Vol] 3.14 10*6/uL Low 4.00-5.20 [facility] Comment on above: Performed By: #### 4 [id number] ####[facility] [address] [place], [place] [address] Glenn Gudino M.D. [id number] WBC (Bld) [#/Vol] 7.25 10*3/uL Normal 4.50-11.00 [facility] Comment on above: Performed By: #### 4 [id number] ####[facility] [address] [place] [address] Glenn Gudino M.D. [id number] COMPLEMENT DIRECT ANTIGLOBUL IN TESTon 01-23-2024 COMPLEMENT DIRECT ANTIGLOBULIN TEST Negative Normal [facility] Comment on above: Performed By: #### 4 6847 ####[facility] [address] [place] [address] Nurys Oneill MD [id number] [facility] COMPLEMENT DIRECT ANTIGLOBULIN TEST Negative Normal [facility] Comment on above: Performed By: #### 4 6847 ####[facility] [address] [place] [address] Nurys Oneill MD [id number] [facility] COMPREHENSIVE METABOLIC PANE Magdaleno 01-23-2024 Albumin [Mass/Vol] 2.7 g/dL Low 3.2-5.2 [facility] Comment on above: Order Comment: [facility] has implemented the eGFR calculation approach that does not have a coefficient for race that conforms to the NKF-ASN Task Force Recommendations. Performed By: #### 4 6126 ####[facility] [address] [place] [address] Glenn Gudino M.D. [id number] ALP [Catalytic activity/Vol] 74 U/L Normal 40-150 [facility] Comment on above: Order Comment: [facility] has implemented the eGFR calculation approach that does not have a coefficient for race that conforms to the NKF-ASN Task Force Recommendations. Performed By: #### 4 6126 ####[facility] [address] [place] [address] Glenn Gudino M.D. [id number] ALT [Catalytic activity/Vol] 10 U/L Normal 0-35 U/L [facility] Comment on above: Order Comment: [facility] has implemented the eGFR calculation approach that does not have a coefficient for race that conforms to the NKF-ASN Task Force Recommendations. Performed By: #### 4 6126 ####[facility] [address] [place] [address] Glenn Gudino M.D. [id number] Anion gap [Moles/Vol] 15 mmol/L Normal 10-20 [facility] Comment on above: Order Comment: [facility] has implemented the eGFR calculation approach that does not have a coefficient for race that conforms to the NKF-ASN Task Force Recommendations. Performed By: #### 4 6126 ####[facility] [address] [place] [address] Glenn Gudino M.D. [id number] AST [Catalytic activity/Vol] 23 U/L Normal 0-35 U/L [facility] Comment on above: Order Comment: [facility] has implemented the eGFR calculation approach that does not have a coefficient for race that conforms to the NKF-ASN Task Force Recommendations. Performed By: #### 4 6126 ####[facility] [address] [place] [address] Glenn Gudino M.D. [id number] Bilirubin [Mass/Vol] 0.2 mg/dL Normal 0.0-1.3 [facility] Comment on above: Order Comment: [facility] has implemented the eGFR calculation approach that does not have a coefficient for race that conforms to the NKF-ASN Task Force Recommendations. Performed By: #### 4 6126 ####[facility] [address] [place] [address] Glenn Gudino M.D. [id number] Calcium [Mass/Vol] 8.2 mg/dL Low 8.4-10.2 [facility] Comment on above: Order Comment: [facility] has implemented the eGFR calculation approach that does not have a coefficient for race that conforms to the NKF-ASN Task Force Recommendations. Performed By: #### 4 6126 ####[facility] [address] [place] [address] Glenn Gudino M.D. [id number] Chloride [Moles/Vol] 101 mmol/L Normal 98-108 [facility] Comment on above: Order Comment: [facility] has implemented the eGFR calculation approach that does not have a coefficient for race that conforms to the NKF-ASN Task Force Recommendations. Performed By: #### 4 6126 ####[facility] [address] [place] [address] Glenn uGdino M.D. [id number] Creatinine [Mass/Vol] 1.99 mg/dL High 0.60-1.10 [facility] Comment on above: Order Comment: [facility] has implemented the eGFR calculation approach that does not have a coefficient for race that conforms to the NKF-ASN Task Force Recommendations. Performed By: #### 4 6126 ####[facility] [address] [place] [address] Glenn Gudino M.D. [id number] EGFR 28 mL/min/1.73 m2 Low >=60 [facility] Comment on above: Order Comment: [facility] has implemented the eGFR calculation approach that does not have a coefficient for race that conforms to the NKF-ASN Task Force Recommendations. Result Comment: Joi mated GFR was calculated using the 2020 CKD-EPI creatinine equation. Performed By: #### 4 [id number] ####[facility] [address] [place] [address] Glenn Gudino M.D. [id number] Glucose [Mass/Vol] 85 mg/dL Normal 65-99 [facility] Comment on above: Order Comment: [facility] has implemented the eGFR calculation approach that does not have a coefficient for race that conforms to the NKF-ASN Task Force Recommendations. Performed By: #### 4 6126 ####[facility] [address] [place] [address] Glenn Gudino M.D. [id number] HCO3 (Bld) [Moles/Vol] 19 mmol/L Low 21-32 [facility] Comment on above: Order Comment: [facility] has implemented the eGFR calculation approach that does not have a coefficient for race that conforms to the NKF-ASN Task Force Recommendations. Performed By: #### 4 6126 ####[facility] [address] [place], [place] [address] Glenn Gudino M.D. [id number] Potassium [Moles/Vol] 4.6 mmol/L Normal 3.5-5.1 [facility] Comment on above: Order Comment: [facility] has implemented the eGFR calculation approach that does not have a coefficient for race that conforms to the NKF-ASN Task Force Recommendations. Performed By: #### 4 6126 ####[facility] [address] [place], [place] [address] Glenn Gudino M.D. [id number] Protein [Mass/Vol] 6.5 g/dL Normal 6.0-8.0 [facility] Comment on above: Order Comment: [facility] has implemented the eGFR calculation approach that does not have a coefficient for race that conforms to the NKF-ASN Task Force Recommendations. Performed By: #### 4 6126 ####[facility] [address] [place], [place] [address] Glenn Gudino M.D. [id number] Sodium [Moles/Vol] 130 mmol/L Low 135-145 [facility] Comment on above: Order Comment: [facility] has implemented the eGFR calculation approach that does not have a coefficient for race that conforms to the NKF-ASN Task Force Recommendations. Performed By: #### 4 6126 ####[facility] [address] [place], [place] [address] Glenn Gudino M.D. [id number] Urea nitrogen [Mass/Vol] 36 mg/dL High 8-25 [facility] Comment on above: Order Comment: [facility] has implemented the eGFR calculation approach that does not have a coefficient for race that conforms to the NKF-ASN Task Force Recommendations. Performed By: #### 4 6126 ####[facility] [address] [place] [address] Glenn Gudino M.D. [id number] Urea nitrogen/Creatinine [Mass ratio] 18.1 mg/mg Normal 10.0-20.0 [facility] Comment on above: Order Comment: [facility] has implemented the eGFR calculation approach that does not have a coefficient for race that conforms to the NKF-ASN Task Force Recommendations. Performed By: #### 4 [id number] ####[facility] [address] [place] [address] Glenn Gudino M.D. [id number] ELUTION-WAAon 01-23-2024 ELUTION-WAA [facility] Comment on above: Performed By: #### 4 [id number]_WAA ####[facility] [address] [place] [address] Nurys Oneill MD [id number] RMHTS GIGGon 01-23-2024 GIGG Positive [facility] Comment on above: Performed By: #### G IGG ####[facility] [address] [place] [address] Nurys Oneill MD [id number] RMHTS GIGG Positive [facility] Comment on above: Performed By: #### G IGG ####[facility] [address] [place] [address] Nurys Oneill MD [id number] [facility] LITTLE C PATIENT ANTIGEN TYP ING (STX)on 01-23-2024 LITTLE C PATIENT ANTIGEN TYPING (STX) Positive [facility] Comment on above: Performed By: #### P -Little c ####[facility] [address] [place] [address] Nurys Oneill MD [id number] [facility] PT/INRon 01-23-2024 INR Coag (PPP) [Relative time] 1.0 {INR} Normal 0.8-1.1 [facility] Comment on above: Order Comment: Jennifer retana the induction phase of oral anticoagulation, the INR may not reflect the anticoagulation status of the patient. Therapeutic ranges for INR's are:Most clinical situations: INR 2.0-3.0Mechanical Prosthetic Valve: INR 2.5-3.5Critical: INR >5.0 Performed By: #### 4 [id number] ####[facility] [address] [place], [place] [address] Glenn Gudino M.D. [id number] PT Coag (PPP) [Time] 13.3 s Normal 11.8-14.3 [facility] Comment on above: Order Comment: Jennifer retana the induction phase of oral anticoagulation, the INR may not reflect the anticoagulation status of the patient. Therapeutic ranges for INR's are:Most clinical situations: INR 2.0-3.0Mechanical Prosthetic Valve: INR 2.5-3.5Critical: INR >5.0 Performed By: #### 4 6391 ####[facility] [address] [place] [address] Glenn Gudion M.D. [id number] TYPE AND SCREENon 01-23-2024 TYPE AND SCREEN ABORH: O Positive AB SCREEN: Positive EXPIRATION DATE: 01/26/2024 23:59 EST Normal [facility] Comment on above: Performed By: #### 4 [id number] ####[facility] [address] [place] [address] Nurys Oneill MD [id number] RMS TYPE AND SCREEN ABORH: O Positive AB SCREEN: Positive EXPIRATION DATE: 01/26/2024 23:59 [facility] Comment on above: Performed By: #### 4 [id number] ####[facility] [address] [place] [address] Nurys Oneill MD [id number] RMS APTT HEPARIN COVERAGEon 12-28 aPTT Coag (Bld) [Time] 113 s High 23-34 [facility] Comment on above: Order Comment: Thera peutic range for APTT's is 68 - 104 seconds Performed By: #### 4 [id number] ####[facility] [address] [place] [address] Glenn Gudino M.D. [id number] aPTT Coag (Bld) [Time] 100 s High 23-34 [facility] Comment on above: Order Comment: Thera peutic range for APTT's is 68 - 104 secondsResults checked. Performed By: #### 4 [id number] ####[facility] [address] [place], [place] [address] Glenn Gudino M.D. [id number] CBCon 01-22-2024 AUTO NRBC 0.0 % Normal [facility] Comment on above: Order Comment: While on heparin Performed By: #### 4 [id number] ####[facility] [address] [place] [address] Glenn Gudino M.D. [id number] AUTO NRBC ABS COUNT 0.00 K/mcL Normal 0.00-0.00 [facility] Comment on above: Order Comment: While on heparin Performed By: #### 4 [id number] ####[facility] [address] [place] [address] Glenn Gudino M.D. [id number] Erythrocyte distribution width (RBC) [Ratio] 18.7 % High 11.6-14.8 [facility] Comment on above: Order Comment: While on heparin Performed By: #### 4 [id number] ####[facility] [address] [place] [id number] Glenn Gudino M.D. [id number] Hematocrit (Bld) [Volume fraction] 29.7 % Low 36.0-46.0 [facility] Comment on above: Order Comment: While on heparin Performed By: #### 4 [id number] ####[facility] [address] [place], [place] [address] Glenn Gudino M.D. [id number] Hemoglobin (Bld) [Mass/Vol] 9.3 g/dL Low 12.0-16.0 [facility] Comment on above: Order Comment: While on heparin Performed By: #### 4 [id number] ####[facility] [address] [place], [place] [address] Glenn Gudino M.D. [id number] MCH (RBC) [Entitic mass] 27.4 pg Normal 26.0-34.0 [facility] Comment on above: Order Comment: While on heparin Performed By: #### 4 [id number] ####[facility] [address] [place] [address] Glenn Gudino M.D. [id number] MCV (RBC) [Entitic vol] 87.6 fL Normal 80.0-100.0 [facility] Comment on above: Order Comment: While on heparin Performed By: #### 4 [id number] ####[facility] [address] [place] [address] Glenn Gudino M.D. [id number] MEAN CORPUSCULAR HEMOGLOBIN CONC 31.3 g/dL Normal 31.0-37.0 [facility] Comment on above: Order Comment: While on heparin Performed By: #### 4 [id number] ####[facility] [address] [place], [place] [address] Glenn Gudino M.D. [id number] Platelet mean volume (Bld) [Entitic vol] 9.0 fL Low 9.4-12.4 [facility] Comment on above: Order Comment: While on heparin Performed By: #### 4 [id number] ####[facility] [address] [place], [place] [address] Glenn Gudino M.D. [id number] Platelets (Bld) [#/Vol] 192 10*3/uL Normal 150-400 [facility] Comment on above: Order Comment: While on heparin Performed By: #### 4 [id number] ####[facility] [address] [place], [place] [address] Glenn Gudino M.D. [id number] RBC (Bld) [#/Vol] 3.39 10*6/uL Low 4.00-5.20 [facility] Comment on above: Order Comment: While on heparin Performed By: #### 4 [id number] ####[facility] [address] [place] [address] 12095 Glenn Gudino M.D. [id number] WBC (Bld) [#/Vol] 5.85 10*3/uL Normal 4.50-11.00 [facility] Comment on above: Order Comment: While on heparin Performed By: #### 4 [id number] ####[facility] [address] [place] [address] 51285 Glenn Gudino M.D. [id number] COMPREHENSIVE METABOLIC PANE Magdaleno 01-22-2024 Albumin [Mass/Vol] 2.8 g/dL Low 3.2-5.2 [facility] Comment on above: Order Comment: [facility] has implemented the eGFR calculation approach that does not have a coefficient for race that conforms to the NKF-ASN Task Force Recommendations. Performed By: #### 4 [id number] ####[facility] [address] [place] [address] 96458 Glenn Gudino M.D. [id number] ALP [Catalytic activity/Vol] 75 U/L Normal 40-150 [facility] Comment on above: Order Comment: [facility] has implemented the eGFR calculation approach that does not have a coefficient for race that conforms to the NKF-ASN Task Force Recommendations. Performed By: #### 4 [id number] ####[facility] [address] [place] [address] 59677 Glenn Gudino M.D. [id number] ALT [Catalytic activity/Vol] 10 U/L Normal 0-35 U/L [facility] Comment on above: Order Comment: [facility] has implemented the eGFR calculation approach that does not have a coefficient for race that conforms to the NKF-ASN Task Force Recommendations. Performed By: #### 4 [id number] ####[facility] [address] [place] [address] 23524 Glenn Gudino M.D. [id number] Anion gap [Moles/Vol] 16 mmol/L Normal 10-20 [facility] Comment on above: Order Comment: [facility] has implemented the eGFR calculation approach that does not have a coefficient for race that conforms to the NKF-ASN Task Force Recommendations. Performed By: #### 4 [id number] ####[facility] [address] [place], [place] [address] Glenn Gudino M.D. [id number] AST [Catalytic activity/Vol] 19 U/L Normal 0-35 U/L [facility] Comment on above: Order Comment: [facility] has implemented the eGFR calculation approach that does not have a coefficient for race that conforms to the NKF-ASN Task Force Recommendations. Performed By: #### 4 [id number] ####[facility] [address] [place], [place] [address] Glenn Gudino M.D. [id number] Bilirubin [Mass/Vol] 0.2 mg/dL Normal 0.0-1.3 [facility] Comment on above: Order Comment: [facility] has implemented the eGFR calculation approach that does not have a coefficient for race that conforms to the NKF-ASN Task Force Recommendations. Performed By: #### 4 6126 ####[facility] [address] [place], [place] [address] Glenn Gudino M.D. [id number] Calcium [Mass/Vol] 8.1 mg/dL Low 8.4-10.2 [facility] Comment on above: Order Comment: [facility] has implemented the eGFR calculation approach that does not have a coefficient for race that conforms to the NKF-ASN Task Force Recommendations. Performed By: #### 4 [id number] ####[facility] [address] [place] [address] 96289 Glenn Gudino M.D. [id number] Chloride [Moles/Vol] 103 mmol/L Normal 98-108 [facility] Comment on above: Order Comment: [facility] has implemented the eGFR calculation approach that does not have a coefficient for race that conforms to the NKF-ASN Task Force Recommendations. Performed By: #### 4 [id number] ####[facility] [address] [place] [address] 70645 Glenn Gudino M.D. [id number] Creatinine [Mass/Vol] 2.18 mg/dL High 0.60-1.10 [facility] Comment on above: Order Comment: [facility] has implemented the eGFR calculation approach that does not have a coefficient for race that conforms to the NKF-ASN Task Force Recommendations. Performed By: #### 4 6126 ####[facility] [address] [place], [place] [address] Glenn Gudino M.D. [id number] EGFR 25 mL/min/1.73 m2 Low >=60 [facility] Comment on above: Order Comment: [facility] has implemented the eGFR calculation approach that does not have a coefficient for race that conforms to the NKF-ASN Task Force Recommendations. Result Comment: Joi mated GFR was calculated using the 2020 CKD-EPI creatinine equation. Performed By: #### 4 [id number] ####[facility] [address] [place] [address] 64801 Glenn Gudino M.D. [id number] Glucose [Mass/Vol] 82 mg/dL Normal 65-99 [facility] Comment on above: Order Comment: [facility] has implemented the eGFR calculation approach that does not have a coefficient for race that conforms to the NKF-ASN Task Force Recommendations. Performed By: #### 4 6125 ####[facility] [address] [place] [address] 60510 Glenn Gudino M.D. [id number] HCO3 (Bld) [Moles/Vol] 21 mmol/L Normal 21-32 [facility] Comment on above: Order Comment: [facility] has implemented the eGFR calculation approach that does not have a coefficient for race that conforms to the NKF-ASN Task Force Recommendations. Performed By: #### 4 6126 ####[facility] [address] [place] [address] 36195 Glenn Gudino M.D. [id number] Potassium [Moles/Vol] 4.6 mmol/L Normal 3.5-5.1 [facility] Comment on above: Order Comment: [facility] has implemented the eGFR calculation approach that does not have a coefficient for race that conforms to the NKF-ASN Task Force Recommendations. Performed By: #### 4 6126 ####[facility] [address] [place] [address] 75870 Glenn Gudino M.D. [id number] Protein [Mass/Vol] 6.7 g/dL Normal 6.0-8.0 [facility] Comment on above: Order Comment: [facility] has implemented the eGFR calculation approach that does not have a coefficient for race that conforms to the NKF-ASN Task Force Recommendations. Performed By: #### 4 6126 ####[facility] [address] [place] [address] 04405 Glenn Gudino M.D. [id number] Sodium [Moles/Vol] 135 mmol/L Normal 135-145 [facility] Comment on above: Order Comment: [facility] has implemented the eGFR calculation approach that does not have a coefficient for race that conforms to the NKF-ASN Task Force Recommendations. Performed By: #### 4 6126 ####[facility] [address] [place] [address] 93598 Glenn Gudino M.D. [id number] Urea nitrogen [Mass/Vol] 38 mg/dL High 8-25 [facility] Comment on above: Order Comment: [facility] has implemented the eGFR calculation approach that does not have a coefficient for race that conforms to the NKF-ASN Task Force Recommendations. Performed By: #### 4 6126 ####[facility] [place], [place] [address] Glenn Gudino M.D. [id number] Urea nitrogen/Creatinine [Mass ratio] 17.4 mg/mg Normal 10.0-20.0 [facility] Comment on above: Order Comment: [facility] has implemented the eGFR calculation approach that does not have a coefficient for race that conforms to the NKF-ASN Task Force Recommendations. Performed By: #### 4 6126 ####[facility] [address] [place] [address] 29368 Glenn Gudino M.D. [id number] CONSULTon 01-22-2024 CONSULT See consult note 12/28 11/19. AUTHENTICATED BY MARY SUBRAMANIAN ON 01/23/2024 07:09:20 Normal [facility] CONSULT Normal [facility] PT/INRon 01-22-2024 INR Coag (PPP) [Relative time] 1.0 {INR} Normal 0.8-1.1 [facility] Comment on above: Order Comment: Jennifer retana the induction phase of oral anticoagulation, the INR may not reflect the anticoagulation status of the patient. Therapeutic ranges for INR's are:Most clinical situations: INR 2.0-3.0Mechanical Prosthetic Valve: INR 2.5-3.5Critical: INR >5.0 Performed By: #### 4 6391 ####[facility] [address] [place] [address] 08071 Glenn Gudino M.D. [id number] PT Coag (PPP) [Time] 13.1 s Normal 11.8-14.3 [facility] Comment on above: Order Comment: Jennifer retana the induction phase of oral anticoagulation, the INR may not reflect the anticoagulation status of the patient. Therapeutic ranges for INR's are:Most clinical situations: INR 2.0-3.0Mechanical Prosthetic Valve: INR 2.5-3.5Critical: INR >5.0 Performed By: #### 4 6391 ####[facility] [address] [place], [place] [address] Glenn Gudino M.D. [id number] APTT HEPARIN COVERAGEon 12-28 aPTT Coag (Bld) [Time] 66 s High 23-34 [facility] Comment on above: Order Comment: Thera peutic range for APTT's is 68 - 104 seconds Result Comment: Resu lts checked. Performed By: #### 4 6848 ####[facility] [address] [place] [address] Glenn Gudino M.D. [id number] aPTT Coag (Bld) [Time] 84 s High 23-34 [facility] Comment on above: Order Comment: Thera peutic range for APTT's is 68 - 104 secondsResults checked. Performed By: #### 4 [id number] ####[facility] [address] [place], [place] [address] Glenn Gudino M.D. [id number] aPTT Coag (Bld) [Time] 63 s High 23-34 [facility] Comment on above: Order Comment: Thera peutic range for APTT's is 68 - 104 seconds Performed By: #### 4 [id number] ####[facility] [address] [place] [address] Glenn Gudino M.D. [id number] RENAL FUNCTION PANELon 01-20 Albumin [Mass/Vol] 2.7 g/dL Low 3.2-5.2 [facility] Comment on above: Order Comment: [facility] has implemented the eGFR calculation approach that does not have a coefficient for race that conforms to the NKF-ASN Task Force Recommendations. Performed By: #### 4 6449 ####[facility] [address] [place], [place] [address] Glenn Gudino M.D. [id number] Anion gap [Moles/Vol] 15 mmol/L Normal 10-20 [facility] Comment on above: Order Comment: [facility] has implemented the eGFR calculation approach that does not have a coefficient for race that conforms to the NKF-ASN Task Force Recommendations. Performed By: #### 4 6449 ####[facility] [address] [place], [place] [address] Glenn Gudino M.D. [id number] Calcium [Mass/Vol] 8.1 mg/dL Low 8.4-10.2 [facility] Comment on above: Order Comment: [facility] has implemented the eGFR calculation approach that does not have a coefficient for race that conforms to the NKF-ASN Task Force Recommendations. Performed By: #### 4 6449 ####[facility] [address] [place], [place] [address] Glenn Gudino M.D. [id number] Chloride [Moles/Vol] 102 mmol/L Normal 98-108 [facility] Comment on above: Order Comment: [facility] has implemented the eGFR calculation approach that does not have a coefficient for race that conforms to the NKF-ASN Task Force Recommendations. Performed By: #### 4 6449 ####[facility] [address] [place], [place] [address] Glenn Gudino M.D. [id number] Creatinine [Mass/Vol] 1.96 mg/dL High 0.60-1.10 [facility] Comment on above: Order Comment: [facility] has implemented the eGFR calculation approach that does not have a coefficient for race that conforms to the NKF-ASN Task Force Recommendations. Performed By: #### 4 6449 ####[facility] [address] [place], [place] [address] Glenn Gudino M.D. [id number] EGFR 29 mL/min/1.73 m2 Low >=60 [facility] Comment on above: Order Comment: [facility] has implemented the eGFR calculation approach that does not have a coefficient for race that conforms to the NKF-ASN Task Force Recommendations. Result Comment: Joi mated GFR was calculated using the 2020 CKD-EPI creatinine equation. Performed By: #### 4 [id number] ####[facility] [address] [place] [address] 05251 Glenn Gudino M.D. [id number] Glucose [Mass/Vol] 85 mg/dL Normal 65-99 [facility] Comment on above: Order Comment: [facility] has implemented the eGFR calculation approach that does not have a coefficient for race that conforms to the NKF-ASN Task Force Recommendations. Performed By: #### 4 6449 ####[facility] [address] [place] [address] 78815 Glenn Gudino M.D. [id number] HCO3 (Bld) [Moles/Vol] 21 mmol/L Normal 21-32 [facility] Comment on above: Order Comment: [facility] has implemented the eGFR calculation approach that does not have a coefficient for race that conforms to the NKF-ASN Task Force Recommendations. Performed By: #### 4 6449 ####[facility] [address] [place] [address] 94306 Glenn Gudino M.D. [id number] Phosphate [Mass/Vol] 3.9 mg/dL Normal 2.8-4.1 [facility] Comment on above: Order Comment: [facility] has implemented the eGFR calculation approach that does not have a coefficient for race that conforms to the NKF-ASN Task Force Recommendations. Performed By: #### 4 6449 ####[facility] [address] [place] [address] 64968 Glenn Gudino M.D. [id number] Potassium [Moles/Vol] 4.2 mmol/L Normal 3.5-5.1 [facility] Comment on above: Order Comment: [facility] has implemented the eGFR calculation approach that does not have a coefficient for race that conforms to the NKF-ASN Task Force Recommendations. Performed By: #### 4 6449 ####[facility] [address] [place] [address] 06342 Glenn Gudino M.D. [id number] Sodium [Moles/Vol] 134 mmol/L Low 135-145 [facility] Comment on above: Order Comment: [facility] has implemented the eGFR calculation approach that does not have a coefficient for race that conforms to the NKF-ASN Task Force Recommendations. Performed By: #### 4 6449 ####[facility] [address] [place] [address] 00454 Glenn Gudino M.D. [id number] Urea nitrogen [Mass/Vol] 34 mg/dL High 8-25 [facility] Comment on above: Order Comment: [facility] has implemented the eGFR calculation approach that does not have a coefficient for race that conforms to the NKF-ASN Task Force Recommendations. Performed By: #### 4 6449 ####[facility] [address] [place], [place] [address] Glenn Gudino M.D. [id number] Urea nitrogen/Creatinine [Mass ratio] 17.3 mg/mg Normal 10.0-20.0 [facility] Comment on above: Order Comment: [facility] has implemented the eGFR calculation approach that does not have a coefficient for race that conforms to the NKF-ASN Task Force Recommendations. Performed By: #### 4 6449 ####[facility] [address] [place], [place] [address] Glenn Gudino M.D. [id number] APTT HEPARIN COVERAGEon 12-28 aPTT Coag (Bld) [Time] 53 s High 23-34 [facility] Comment on above: Order Comment: Thera peutic range for APTT's is 68 - 104 seconds Performed By: #### 4 [id number] ####[facility] [address] [place] [address] 03133 Glenn Gudino M.D. [id number] CBCon 01-20-2024 AUTO NRBC 0.0 % Normal [facility] Comment on above: Performed By: #### 4 [id number] ####[facility] [address] [place], [place] [address] Glenn Gudino M.D. [id number] AUTO NRBC ABS COUNT 0.00 K/mcL Normal 0.00-0.00 [facility] Comment on above: Performed By: #### 4 [id number] ####[facility] [address] [place] [address] Glenn Gudino M.D. [id number] Erythrocyte distribution width (RBC) [Ratio] 18.9 % High 11.6-14.8 [facility] Comment on above: Performed By: #### 4 [id number] ####[facility] [address] [place] [address] Glenn Gudino M.D. [id number] Hematocrit (Bld) [Volume fraction] 26.1 % Low 36.0-46.0 [facility] Comment on above: Performed By: #### 4 [id number] ####[facility] [address] [place] [address] Glenn Gudino M.D. [id number] Hemoglobin (Bld) [Mass/Vol] 8.1 g/dL Low 12.0-16.0 [facility] Comment on above: Performed By: #### 4 [id number] ####[facility] [address] [place], [place] [address] Glenn Gudino M.D. [id number] MCH (RBC) [Entitic mass] 27.3 pg Normal 26.0-34.0 [facility] Comment on above: Performed By: #### 4 [id number] ####[facility] [address] [place], [place] [address] Glenn Gudino M.D. [id number] MCV (RBC) [Entitic vol] 87.9 fL Normal 80.0-100.0 [facility] Comment on above: Performed By: #### 4 [id number] ####[facility] [address] [place] [address] 21528 Glenn Gudino M.D. [id number] MEAN CORPUSCULAR HEMOGLOBIN CONC 31.0 g/dL Normal 31.0-37.0 [facility] Comment on above: Performed By: #### 4 [id number] ####[facility] [address] [place] [address] 33041 Glenn Gudino M.D. [id number] Platelet mean volume (Bld) [Entitic vol] 10.1 fL Normal 9.4-12.4 [facility] Comment on above: Performed By: #### 4 [id number] ####[facility] [address] [place], [place] [address] Glenn Gudino M.D. [id number] Platelets (Bld) [#/Vol] 160 10*3/uL Normal 150-400 [facility] Comment on above: Performed By: #### 4 [id number] ####[facility] [address] [place] [address] 18068 Glenn Gudino M.D. [id number] RBC (Bld) [#/Vol] 2.97 10*6/uL Low 4.00-5.20 [facility] Comment on above: Performed By: #### 4 [id number] ####[facility] [address] [place] [address] 15101 Glenn Gudino M.D. [id number] WBC (Bld) [#/Vol] 4.60 10*3/uL Normal 4.50-11.00 [facility] Comment on above: Performed By: #### 4 [id number] ####[facility] [address] [place] [address] 51009 Glenn Gudino M.D. [id number] CONSULTon 01-20-2024 CONSULT Normal [facility] HEPATIC FUNCTION PANELon Albumin [Mass/Vol] 2.7 g/dL Low 3.2-5.2 [facility] Comment on above: Performed By: #### 4 5866 ####[facility] [address] [place] [address] Glenn Gudino M.D. [id number] Order Comment: [facility] has implemented the eGFR calculation approach that does not have a coefficient for race that conforms to the NKF-ASN Task Force Recommendations. Performed By: #### 4 [id number] ####[facility] [address] [place] [address] Glenn Gudino M.D. [id number] ALP [Catalytic activity/Vol] 79 U/L Normal 40-150 [facility] Comment on above: Performed By: #### 4 5866 ####[facility] [address] [place] [address] Glenn Gudino M.D. [id number] ALT [Catalytic activity/Vol] 13 U/L Normal 0-35 U/L [facility] Comment on above: Performed By: #### 4 5866 ####[facility] [address] [place], [place] [address] Glenn Gudino M.D. [id number] AST [Catalytic activity/Vol] 26 U/L Normal 0-35 U/L [facility] Comment on above: Performed By: #### 4 [id number] ####[facility] [address] [place], [place] [id number] Glenn Gudino M.D. [id number] Bilirubin [Mass/Vol] 0.2 mg/dL Normal 0.0-1.3 [facility] Comment on above: Performed By: #### 4 [id number] ####[facility] [address] [place], [place] [id number] Glenn Gudino M.D. [id number] BILIRUBIN, DIRECT < Normal 0.0-0.4 [facility] Comment on above: Performed By: #### 4 [id number] ####[facility] [address] [place], [place] [id number] Glenn Gudino M.D. [id number] Protein [Mass/Vol] 6.1 g/dL Normal 6.0-8.0 [facility] Comment on above: Performed By: #### 4 [id number] ####[facility] [address] [place] [address] Glenn Gudino M.D. [id number] PT/INRon 01-20-2024 INR Coag (PPP) [Relative time] 1.0 {INR} Normal 0.8-1.1 [facility] Comment on above: Order Comment: Jennifer retana the induction phase of oral anticoagulation, the INR may not reflect the anticoagulation status of the patient. Therapeutic ranges for INR's are:Most clinical situations: INR 2.0-3.0Mechanical Prosthetic Valve: INR 2.5-3.5Critical: INR >5.0 Performed By: #### 4 [id number] ####[facility] [address] [place], [place] [address] Glenn Gudino M.D. [id number] PT Coag (PPP) [Time] 13.2 s Normal 11.8-14.3 [facility] Comment on above: Order Comment: Malcomin g the induction phase of oral anticoagulation, the INR may not reflect the anticoagulation status of the patient. Therapeutic ranges for INR's are:Most clinical situations: INR 2.0-3.0Mechanical Prosthetic Valve: INR 2.5-3.5Critical: INR >5.0 Performed By: #### 4 [id number] ####[facility] [address] [place], [place] [address] Glenn Gudino M.D. [id number] RENAL FUNCTION PANELon 01-19 Anion gap [Moles/Vol] 15 mmol/L Normal 10-20 [facility] Comment on above: Order Comment: [facility] has implemented the eGFR calculation approach that does not have a coefficient for race that conforms to the NKF-ASN Task Force Recommendations. Performed By: #### 4 6449 ####[facility] [address] [place] [address] Glenn Gudino M.D. [id number] Calcium [Mass/Vol] 8.2 mg/dL Low 8.4-10.2 [facility] Comment on above: Order Comment: [facility] Services has implemented the eGFR calculation approach that does not have a coefficient for race that conforms to the NKF-ASN Task Force Recommendations. Performed By: #### 4 [id number] ####[facility] [address] [place] [address] Glenn Gudino M.D. [id number] Chloride [Moles/Vol] 104 mmol/L Normal 98-108 [facility] Comment on above: Order Comment: [facility] has implemented the eGFR calculation approach that does not have a coefficient for race that conforms to the NKF-ASN Task Force Recommendations. Performed By: #### 4 [id number] ####[facility] [address] [place], [place] [address] Glenn Gudino M.D. [id number] Creatinine [Mass/Vol] 1.96 mg/dL High 0.60-1.10 [facility] Comment on above: Order Comment: [facility] has implemented the eGFR calculation approach that does not have a coefficient for race that conforms to the NKF-ASN Task Force Recommendations. Performed By: #### 4 [id number] ####[facility] [address] [place] [address] Glenn Gudino M.D. [id number] EGFR 29 mL/min/1.73 m2 Low >=60 [facility] Comment on above: Order Comment: [facility] has implemented the eGFR calculation approach that does not have a coefficient for race that conforms to the NKF-ASN Task Force Recommendations. Result Comment: Joi mated GFR was calculated using the 2020 CKD-EPI creatinine equation. Performed By: #### 4 [id number] ####[facility] [address] [place], [place] [address] Glenn Gudino M.D. [id number] Glucose [Mass/Vol] 80 mg/dL Normal 65-99 [facility] Comment on above: Order Comment: [facility] has implemented the eGFR calculation approach that does not have a coefficient for race that conforms to the NKF-ASN Task Force Recommendations. Performed By: #### 4 [id number] ####[facility] [address] [place] [address] Glenn Gudino M.D. [id number] HCO3 (Bld) [Moles/Vol] 20 mmol/L Low 21-32 [facility] Comment on above: Order Comment: [facility] has implemented the eGFR calculation approach that does not have a coefficient for race that conforms to the NKF-ASN Task Force Recommendations. Performed By: #### 4 6449 ####[facility] [address] [place] [address] Glenn Gudino M.D. [id number] Phosphate [Mass/Vol] 3.9 mg/dL Normal 2.8-4.1 [facility] Comment on above: Order Comment: [facility] has implemented the eGFR calculation approach that does not have a coefficient for race that conforms to the NKF-ASN Task Force Recommendations. Performed By: #### 4 [id number] ####[facility] [address] [place] [address] Glenn Gudino M.D. [id number] Potassium [Moles/Vol] 4.2 mmol/L Normal 3.5-5.1 [facility] Comment on above: Order Comment: [facility] has implemented the eGFR calculation approach that does not have a coefficient for race that conforms to the NKF-ASN Task Force Recommendations. Performed By: #### 4 [id number] ####[facility] [address] [place] [address] Glenn Gudino M.D. [id number] Sodium [Moles/Vol] 135 mmol/L Normal 135-145 [facility] Comment on above: Order Comment: [facility] has implemented the eGFR calculation approach that does not have a coefficient for race that conforms to the NKF-ASN Task Force Recommendations. Performed By: #### 4 [id number] ####[facility] [address] [place] [address] Glenn Gudino M.D. [id number] Urea nitrogen [Mass/Vol] 32 mg/dL High 8-25 [facility] Comment on above: Order Comment: [facility] has implemented the eGFR calculation approach that does not have a coefficient for race that conforms to the NKF-ASN Task Force Recommendations. Performed By: #### 4 [id number] ####[facility] [address] [place] [address] Glenn Gudino M.D. [id number] Urea nitrogen/Creatinine [Mass ratio] 16.3 mg/mg Normal 10.0-20.0 [facility] Comment on above: Order Comment: [facility] has implemented the eGFR calculation approach that does not have a coefficient for race that conforms to the NKF-ASN Task Force Recommendations. Performed By: #### 4 [id number] ####[facility] [address] [place] [address] Glenn Gudino M.D. [id number] URINALYSISon 01-20-2024 AMORPHOUS CRYSTALS Few Abnormal None Seen , Rare [facility] Comment on above: Order Comment: Micro scopic examination is performed on all urinalysis samples and only positive findings are reported. The test for blood on the chemical analytic portion of urinalysis may also be positive due to hemoglobinuria and myoglobinuria and if red blood cells are present they are quantified by microscopic examination. Performed By: #### 4 [id number] ####[facility] [address] [place] [address] Glenn Gudino M.D. [id number] BACTERIA, URINE Few Abnormal None Seen [facility] Comment on above: Order Comment: Micro scopic examination is performed on all urinalysis samples and only positive findings are reported. The test for blood on the chemical analytic portion of urinalysis may also be positive due to hemoglobinuria and myoglobinuria and if red blood cells are present they are quantified by microscopic examination. Performed By: #### 4 [id number] ####[facility] [address] [place] [address] Glenn Gudino M.D. [id number] BILIRUBIN, URINE Negative Normal Negative [facility] Comment on above: Order Comment: Micro scopic examination is performed on all urinalysis samples and only positive findings are reported. The test for blood on the chemical analytic portion of urinalysis may also be positive due to hemoglobinuria and myoglobinuria and if red blood cells are present they are quantified by microscopic examination. Performed By: #### 4 [id number] ####[facility] [address] [place] [address] Glenn Gudino M.D. [id number] BLOOD, URINE Negative Normal Negative [facility] Comment on above: Order Comment: Micro scopic examination is performed on all urinalysis samples and only positive findings are reported. The test for blood on the chemical analytic portion of urinalysis may also be positive due to hemoglobinuria and myoglobinuria and if red blood cells are present they are quantified by microscopic examination. Performed By: #### 4 [id number] ####[facility] [address] [place] [address] Glenn Gudino M.D. [id number] Clarity (U) Cloudy Abnormal Clear [facility] Comment on above: Order Comment: Micro scopic examination is performed on all urinalysis samples and only positive findings are reported. The test for blood on the chemical analytic portion of urinalysis may also be positive due to hemoglobinuria and myoglobinuria and if red blood cells are present they are quantified by microscopic examination. Performed By: #### 4 [id number] ####[facility] [address] [place], [place] [address] Glenn Gudino M.D. [id number] Color (U) Yellow Normal Colorless, Yellow [facility] Comment on above: Order Comment: Micro scopic examination is performed on all urinalysis samples and only positive findings are reported. The test for blood on the chemical analytic portion of urinalysis may also be positive due to hemoglobinuria and myoglobinuria and if red blood cells are present they are quantified by microscopic examination. Performed By: #### 4 [id number] ####[facility] [address] [place] [address] Glenn Gudino M.D. [id number] Glucose Ql (U) Negative Normal Negative [facility] Comment on above: Order Comment: Micro scopic examination is performed on all urinalysis samples and only positive findings are reported. The test for blood on the chemical analytic portion of urinalysis may also be positive due to hemoglobinuria and myoglobinuria and if red blood cells are present they are quantified by microscopic examination. Performed By: #### 4 [id number] ####[facility] [address] [place] [address] Glenn Gudino M.D. [id number] Ketones Ql (U) Negative Normal Negative [facility] Comment on above: Order Comment: Micro scopic examination is performed on all urinalysis samples and only positive findings are reported. The test for blood on the chemical analytic portion of urinalysis may also be positive due to hemoglobinuria and myoglobinuria and if red blood cells are present they are quantified by microscopic examination. Performed By: #### 4 [id number] ####[facility] [address] [place] [address] Glenn Gudino M.D. [id number] Leukocyte esterase Test strip Ql (U) Small Abnormal Negative [facility] Comment on above: Order Comment: Micro scopic examination is performed on all urinalysis samples and only positive findings are reported. The test for blood on the chemical analytic portion of urinalysis may also be positive due to hemoglobinuria and myoglobinuria and if red blood cells are present they are quantified by microscopic examination. Performed By: #### 4 [id number] ####[facility] [address] [place] [address] Glenn Gudino M.D. [id number] NITRITE, URINE Negative Normal Negative [facility] Comment on above: Order Comment: Micro scopic examination is performed on all urinalysis samples and only positive findings are reported. The test for blood on the chemical analytic portion of urinalysis may also be positive due to hemoglobinuria and myoglobinuria and if red blood cells are present they are quantified by microscopic examination. Performed By: #### 4 [id number] ####[facility] [address] [place] [address] Glenn Gudino M.D. [id number] pH (U) 7.5 [pH] High 5.0-7.0 [facility] Comment on above: Order Comment: Micro scopic examination is performed on all urinalysis samples and only positive findings are reported. The test for blood on the chemical analytic portion of urinalysis may also be positive due to hemoglobinuria and myoglobinuria and if red blood cells are present they are quantified by microscopic examination. Performed By: #### 4 [id number] ####[facility] [address] [place] [address] Glenn Gudino M.D. [id number] Protein (U) [Mass/Vol] 100 mg/dL Abnormal Negative [facility] Comment on above: Order Comment: Micro scopic examination is performed on all urinalysis samples and only positive findings are reported. The test for blood on the chemical analytic portion of urinalysis may also be positive due to hemoglobinuria and myoglobinuria and if red blood cells are present they are quantified by microscopic examination. Performed By: #### 4 [id number] ####[facility] [address] [place] [address] Glenn Gudino M.D. [id number] RBC LM.HPF (Urine sed) [#/Area] 1 /[HPF] Normal 0-3 [facility] Comment on above: Order Comment: Micro scopic examination is performed on all urinalysis samples and only positive findings are reported. The test for blood on the chemical analytic portion of urinalysis may also be positive due to hemoglobinuria and myoglobinuria and if red blood cells are present they are quantified by microscopic examination. Performed By: #### 4 [id number] ####[facility] [address] [place] [address] Glenn Gudino M.D. [id number] Specific gravity (U) [Rel density] 1.018 Normal 1.005-1.02 5 [facility] Comment on above: Order Comment: Micro scopic examination is performed on all urinalysis samples and only positive findings are reported. The test for blood on the chemical analytic portion of urinalysis may also be positive due to hemoglobinuria and myoglobinuria and if red blood cells are present they are quantified by microscopic examination. Performed By: #### 4 [id number] ####[facility] [address] [place] [address] Glenn Gudino M.D. [id number] SQUAMOUS EPITHELIAL 1 /hpf Normal 0-4 [facility] Comment on above: Order Comment: Micro scopic examination is performed on all urinalysis samples and only positive findings are reported. The test for blood on the chemical analytic portion of urinalysis may also be positive due to hemoglobinuria and myoglobinuria and if red blood cells are present they are quantified by microscopic examination. Performed By: #### 4 [id number] ####[facility] [address] [place] [address] Glenn Gudino M.D. [id number] UROBILINOGEN, URINE <2.0 Normal <2.0 [facility] Comment on above: Order Comment: Micro scopic examination is performed on all urinalysis samples and only positive findings are reported. The test for blood on the chemical analytic portion of urinalysis may also be positive due to hemoglobinuria and myoglobinuria and if red blood cells are present they are quantified by microscopic examination. Performed By: #### 4 [id number] ####[facility] [address] [place] [address] Glenn Gudino M.D. [id number] WBC LM.HPF (Urine sed) [#/Area] 18 /[HPF] High 0-5 [facility] Comment on above: Order Comment: Micro scopic examination is performed on all urinalysis samples and only positive findings are reported. The test for blood on the chemical analytic portion of urinalysis may also be positive due to hemoglobinuria and myoglobinuria and if red blood cells are present they are quantified by microscopic examination. Performed By: #### 4 [id number] ####[facility] [address] [place] [address] Glenn Gudino M.D. [id number] US RENAL AND BLADDERon 01-19 US RENAL AND BLADDER Normal [facility] Comment on above: Order Comment: Injur y/Trauma or Illness?:Illness/OtherHow long have you had these symptoms (acute/chronic)?:UnknownReason for exam?:akiHistory of cancer?:uSurgeries, chemotherapy, or radiation?:uType of Exam?:UnknownAdditional signs and symptoms?:- H AND Ney 01-19-2024 H AND P Normal [facility] CT ANGIOGRAM CHEST ABDOMEN P ELVISon [...] has decr (more content not included)... Normal [facility] Comment on above: Order Comment: [...] Date: 01/05/2024 9:06 AM Patient Status: Outpatient Traffic Workforce Representative: Mary Newell, DEVIN, RVS Referring Physician: SARATH REY ; Indications - AAA stent graft I71.3 - Abdominal aortic aneurysm, ruptured Procedure Description 22365 Duplex scan of aorta, inferior vena cava, [...] Prox EMMANUEL Trans Diam 1.3 cm Normal [place] ABDOMINAL AORTIC ANEURYSM DUPLEX (AAA) Patient Info Name: SCOTT OBREGON Age: 63 years : 1960 Gender: Female Exam Date: 01/05/2024 9:06 AM Patient Status: Outpatient Traffic Workforce Representative: Mary Newell, DOLOREST, RVS Referring Physician: SARATH REY ; Indications - AAA stent graft I71.3 - Abdominal aortic aneurysm, ruptured Procedure Description 69897 Duplex scan of aorta, inferior vena cava, [...] on MonJan 05, 2024 11:42:[address] [facility] RENAL ARTERY DUPLEX LIMIT EDon 01-05-2024 RENAL ARTERY DUPLEX LIMITED Patient Info Name: SCOTT OBREGON Age: 63 years : 1960 Gender: Female Exam Date: 01/05/2024 9:37 AM Patient Status: Outpatient Traffic Workforce Representative: Mary Newell, DEVIN, DOLORESS Referring Physician: SARATH REY ; Indications - left renal artery chimney N28.9 - Renal insufficiency Procedure Description 08336 Duplex scan of arterial inflow and venous [...] Rey MD, RPVI on 01/05/2024 11:[address] [facility] RENAL ARTERY DUPLEX LIMITED Patient Info Name: SCOTT OBREGON Age: 63 years : 1960 Gender: Female Exam Date: 01/05/2024 9:37 AM Patient Status: Outpatient Traffic Workforce Representative: Mary Newell, RVT, RVS Referring Physician: SARATH REY ; Indications - left renal artery chimney N28.9 - Renal insufficiency Procedure Description 21393 Duplex scan of arterial inflow and venous [...] RPVI on 01/05/2024 11:58 AM Dictated by: ASRATH REY on MonJan 05, 2024 11:59:06 AM EDT Transcribed by: SARATH REY on MonJan 05, 2024 11:59:06 AM EDT Finalized by: SARATH REY on MonJan 05, 2024 11:59:06 AM EDT [facility] External Lab PT/INRon 08-07- 2024 INR Coag (PPP) [Relative time] 1.7 {INR} [facility] No Panel Informationon 01-02 [facility] POCT PT/INROrdered By: Makenzie Garza on 01-03-2024 INR Coag (Bld) [Relative time] 1.7 {INR} Abnormal 0.8 - 1.1 [facility] Comment on above: 5.0 mg, all other do ses stay the same Interpretation and review of laboratory results Abnormal [facility] Lab PT/INRon 2023 INR Coag (PPP) [Relative time] 2.1 {INR} [facility] No Panel Informationon 12-26 [facility] POCT PT/INROrdered By: Antonietta Monk on 12-27-2023 INR Coag (Bld) [Relative time] 2.1 {INR} Abnormal 0.8 - 1.1 [facility] Interpretation and review of laboratory results Abnormal [facility] BASIC METABOLIC PANELon 11-27 Anion gap [Moles/Vol] 14 mmol/L Normal 10-20 [facility] Comment on above: Order Comment: Jennifer retana the induction phase of oral anticoagulation, the INR may not reflect the anticoagulation status of the patient. Therapeutic ranges for INR's are: Most clinical situations: INR 2.0-3.0 Mechanical Prosthetic Valve: INR 2.5-3.5 Critical: INR >5.0 Performed By: #### 4 [id number] #### [facility] [address] [place] [address] Jaron Méndez M.D. [id number] Calcium [Mass/Vol] 9.0 mg/dL Normal 8.4-10.2 [facility] Comment on above: Order Comment: Jennifer retana the induction phase of oral anticoagulation, the INR may not reflect the anticoagulation status of the patient. Therapeutic ranges for INR's are: Most clinical situations: INR 2.0-3.0 Mechanical Prosthetic Valve: INR 2.5-3.5 Critical: INR >5.0 Performed By: #### 4 [id number] #### [facility] [address] [place] [address] Jaron Méndez M.D. [id number] Chloride [Moles/Vol] 98 mmol/L Normal 98-108 [facility] Comment on above: Order Comment: Durin g the induction phase of oral anticoagulation, the INR may not reflect the anticoagulation status of the patient. Therapeutic ranges for INR's are: Most clinical situations: INR 2.0-3.0 Mechanical Prosthetic Valve: INR 2.5-3.5 Critical: INR >5.0 Performed By: #### 4 [id number] #### LAB [address] [place] [address] Jaron Méndez M.D. [id number] Creatinine [Mass/Vol] 1.40 mg/dL High 0.60-1.10 [facility] Comment on above: Order Comment: Durin g the induction phase of oral anticoagulation, the INR may not reflect the anticoagulation status of the patient. Therapeutic ranges for INR's are: Most clinical situations: INR 2.0-3.0 Mechanical Prosthetic Valve: INR 2.5-3.5 Critical: INR >5.0 Performed By: #### 4 [id number] #### [place] [id number] Jaron Méndez M.D. [id number] EGFR 43 mL/min/1.73 m2 Low >=60 [facility] Comment on above: Order Comment: [...] By: #### 4 6391 #### LAB [address] [place] [address] Jaron Méndez M.D. [id number] Glucose [Mass/Vol] 89 mg/dL Normal 65-99 [facility] Comment on above: Order Comment: Durin g the induction phase of oral anticoagulation, the INR may not reflect the anticoagulation status of the patient. Therapeutic ranges for INR's are: Most clinical situations: INR 2.0-3.0 Mechanical Prosthetic Valve: INR 2.5-3.5 Critical: INR >5.0 Performed By: #### 4 [id number] #### LAB [address] [place] [address] Jaron Méndez M.D. [id number] HCO3 (Bld) [Moles/Vol] 25 mmol/L Normal 21-32 [facility] Comment on above: Order Comment: Jennifer retana the induction phase of oral anticoagulation, the INR may not reflect the anticoagulation status of the patient. Therapeutic ranges for INR's are: Most clinical situations: INR 2.0-3.0 Mechanical Prosthetic Valve: INR 2.5-3.5 Critical: INR >5.0 Performed By: #### 4 [id number] #### [place] [id number] Jaron Méndez M.D. [id number] Potassium [Moles/Vol] 4.5 mmol/L Normal 3.5-5.1 [facility] Comment on above: Order Comment: Jennifer g the induction phase of oral anticoagulation, the INR may not reflect the anticoagulation status of the patient. Therapeutic ranges for INR's are: Most clinical situations: INR 2.0-3.0 Mechanical Prosthetic Valve: INR 2.5-3.5 Critical: INR >5.0 Performed By: #### 4 6391 #### [address] [address] Jaron Méndez M.D. [id number] Sodium [Moles/Vol] 132 mmol/L Low 135-145 [facility] Comment on above: Order Comment: Jennifer retana the induction phase of oral anticoagulation, the INR may not reflect the anticoagulation status of the patient. Therapeutic ranges for INR's are: Most clinical situations: INR 2.0-3.0 Mechanical Prosthetic Valve: INR 2.5-3.5 Critical: INR >5.0 Performed By: #### 4 6391 #### LAB [address] [place] [address] Jaron Méndez M.D. [id number] Urea nitrogen [Mass/Vol] 25 mg/dL Normal 8-25 [facility] Comment on above: Order Comment: Jennifer the induction phase of oral anticoagulation, the INR may not reflect the anticoagulation status of the patient. Therapeutic ranges for INR's are: Most clinical situations: INR 2.0-3.0 Mechanical Prosthetic Valve: INR 2.5-3.5 Critical: INR >5.0 Performed By: #### 4 6391 #### LAB [address] [place] [address] Jaron Méndez M.D. [id number] Urea nitrogen/Creatinine [Mass ratio] 17.9 mg/mg Normal 10.0-20.0 [facility] Comment on above: Order Comment: Jennifer retana the induction phase of oral anticoagulation, the INR may not reflect the anticoagulation status of the patient. Therapeutic ranges for INR's are: Most clinical situations: INR 2.0-3.0 Mechanical Prosthetic Valve: INR 2.5-3.5 Critical: INR >5.0 Performed By: #### 4 6391 #### [address] [address] Jaron Méndez M.D. [id number] PT/INRon 12-21-2023 INR Coag (PPP) [Relative time] 2.9 {INR} High 0.8-1.1 [facility] Comment on above: Order Comment: Jennifer retana the induction phase of oral anticoagulation, the INR may not reflect the anticoagulation status of the patient. Therapeutic ranges for INR's are: Most clinical situations: INR 2.0-3.0 Mechanical Prosthetic Valve: INR 2.5-3.5 Critical: INR >5.0 Performed By: #### 4 6391 #### [address] [address] Jaron Méndez M.D. [id number] PT Coag (PPP) [Time] 31.1 s High 11.8-14.3 [facility] Comment on above: Order Comment: Jennifer g the induction phase of oral anticoagulation, the INR may not reflect the anticoagulation status of the patient. Therapeutic ranges for INR's are: Most clinical situations: INR 2.0-3.0 Mechanical Prosthetic Valve: INR 2.5-3.5 Critical: INR >5.0 Performed By: #### 4 6391 #### [address] [address] Jaron Méndez M.D. [id number] [facility] POCT PT/INROrdered By: Adilene Albright on 12-20-2023 INR Coag (Bld) [Relative time] 4.4 {INR} Abnormal 0.8 - 1.1 [facility] Comment on above: Patient will get a b lood draw at [facility] tomorrow morning. Coumadin clinic aware. She is holing her dose for tonight. Interpretation and review of laboratory results Abnormal [facility] External Lab PT/INRon 2023 INR Coag (PPP) [Relative time] 4.1 {INR} [facility] No Panel Informationon 12-12 [facility] POCT PT/INROrdered By: Makenzie Garza on 12-13-2023 INR Coag (Bld) [Relative time] 4.1 {INR} Abnormal 0.8 - 1.1 [facility] Interpretation and review of laboratory results Abnormal [facility] POC CREATININE - RALSon 11-26 Creatinine [Mass/Vol] 1.7 mg/dL High 0.6-1.2 [facility] External Lab PT/INRon 2023 INR Coag (PPP) [Relative time] 4.4 {INR} [facility] No Panel Informationon 12-05 [facility] POCT PT/INROrdered By: Makenzie Garza on 12-06-2023 INR Coag (Bld) [Relative time] 4.4 {INR} Abnormal 0.8 - 1.1 [facility] Comment on above: Pt declined venipunc ture for lab draw. Coumadin clinic aware. See Narrative note Interpretation and review of laboratory results Abnormal [facility] External Lab PT/INRon 2023 INR Coag (PPP) [Relative time] 3.5 {INR} [facility] No Panel Informationon 11-28 [facility] POCT PT/INROrdered By: Adilene Albright on 11-29-2023 INR Coag (Bld) [Relative time] 3.5 {INR} Abnormal 0.8 - 1.1 [facility] Interpretation and review of laboratory results Abnormal [facility] US ANKLE/BRACHIAL INDICES EX TREMITY LIMITEDon 11-28-2023 US ANKLE/BRACHIAL INDICES EXTREMITY LIMITED Patient Info Name: SCOTT OBREGON Age: 63 years : 1960 Gender: Female Exam Date: 11/28/2023 3:21 PM Patient Status: Outpatient Traffic Workforce Representative: AMBER LUCIO RVT Referring Physician: ABIGAIL ESTRELLA ; Indications - Left foot ischemia with ischemic ulcers I73.9 - Peripheral vascular disease, unspecified Procedure Description 16688 Limited bilateral noninvasive physiologic studies of upper [...] Carcamo DO on 11/28/2023 03:38 PM Normal [facility] Amb[facility] US ANKLE/BRACHIAL INDICES EXTREMITY LIMITED Patient Info Name: SCOTT OBREGON Age: 63 years : 1960 Gender: Female Exam Date: 11/28/2023 3:21 PM Patient Status: Outpatient Traffic Workforce Representative: AMBER LUCIO RVT Referring Physician: ABIGAIL ESTRELLA ; Indications - Left foot ischemia with ischemic ulcers I73.9 - Peripheral vascular disease, unspecified Procedure Description 02910 Limited bilateral noninvasive physiologic studies of upper [...] MonNov 28, 2023 3:44:31 PM EDT Normal [facility] CBC WITH AUTO DIFFERENTIALon 11-23-2023 AUTO NRBC 0.0 % Normal [facility] Comment on above: Performed By: #### L [id number] #### MH LAB [address] [place], [place] [address] Jaron Méndez M.D. [id number] AUTO NRBC ABS COUNT 0.00 K/mcL Normal 0.00-0.00 [facility] Comment on above: Performed By: #### L [id number] #### [facility] [address] [place], [place] [address] Jaron Méndez M.D. [id number] BASOPHILS ABSOLUTE COUNT 0.04 K/mcL Normal 0.00-0.30 [facility] Comment on above: Performed By: #### L [id number] #### LAB [address] [place] [address] Jaron Méndez M.D. [id number] Basophils/100 WBC (Bld) 0.6 % Normal [facility] Comment on above: Performed By: #### L [id number] #### LAB [address] [place] [address] Jaron Méndez M.D. [id number] Eosinophils (Bld) [#/Vol] 0.07 10*3/uL Normal 0.00-0.50 [facility] Comment on above: Performed By: #### L [id number] #### LAB [address] [place] [address] Jaron Méndez M.D. [id number] Eosinophils/100 WBC (Bld) 1.1 % Normal [facility] Comment on above: Performed By: #### L [id number] #### LAB [address] [place] [address] Jaron Méndez M.D. [id number] Erythrocyte distribution width (RBC) [Ratio] 17.9 % High 11.6-14.8 [facility] Comment on above: Performed By: #### L [id number] #### LAB [address] [place] [address] Jaron Méndez M.D. [id number] Hematocrit (Bld) [Volume fraction] 29.2 % Low 36.0-46.0 [facility] Comment on above: Performed By: #### L [id number] #### LAB [address] [place] [address] Jaron Méndez M.D. [id number] Hemoglobin (Bld) [Mass/Vol] 9.0 g/dL Low 12.0-16.0 [facility] Comment on above: Performed By: #### L [id number] #### LAB [address] [place] [address] Jaron Méndez M.D. [id number] IG ABSOLUTE 0.06 K/mcL Normal 0.00-0.30 [facility] Comment on above: Performed By: #### L [id number] #### LAB [address] [place] [address] Jaron Méndez M.D. [id number] IG PERCENT 0.90 % Normal [facility] Comment on above: Result Comment: The IG parameter is the percentage of metamyelocytes, myelocytes and promyelocytes. An immature granulocyte count (IG) of 1% or more suggests the possibility of infection, an IG count of 3% is very likely related to an infection. Performed By: #### L [id number] #### LAB [address] [place] [address] Jaron Méndez M.D. [id number] Lymphocytes (Bld) [#/Vol] 1.09 10*3/uL Normal 0.90-4.00 [facility] Comment on above: Performed By: #### L [id number] #### LAB [address] [place] [address] Jaron Méndez M.D. [id number] Lymphocytes/100 WBC (Bld) 16.7 % Normal [facility] Comment on above: Performed By: #### L [id number] #### LAB [address] [place] [address] Jaron Méndez M.D. [id number] MCH (RBC) [Entitic mass] 27.4 pg Normal 26.0-34.0 [facility] Comment on above: Performed By: #### L [id number] #### LAB [address] [place] [address] Jaron Méndez M.D. [id number] MCV (RBC) [Entitic vol] 88.8 fL Normal 80.0-100.0 [facility] Comment on above: Performed By: #### L [id number] #### LAB [address] [place] [address] Jaron Méndez M.D. [id number] MEAN CORPUSCULAR HEMOGLOBIN CONC 30.8 g/dL Low 31.0-37.0 [facility] Comment on above: Performed By: #### L [id number] #### LAB [address] [place] [address] Jaron Méndez M.D. [id number] Monocytes (Bld) [#/Vol] 0.56 10*3/uL Normal 0.30-0.90 [facility] Comment on above: Performed By: #### L [id number] #### LAB [address] [place] [address] Jaron Méndez M.D. [id number] Monocytes/100 WBC (Bld) 8.6 % Normal [facility] Comment on above: Performed By: #### L [id number] #### LAB [address] [place] [address] Jaron Méndez M.D. [id number] NEUTROPHILS ABSOLUTE COUNT 4.72 K/mcL Normal 1.70-7.00 [facility] Comment on above: Performed By: #### L [id number] #### LAB [address] [place] [address] Jaron Méndez M.D. [id number] Neutrophils/100 WBC (Bld) 72.1 % Normal [facility] Comment on above: Performed By: #### L [id number] #### LAB [address] [place] [address] Jaron Méndez M.D. [id number] Platelet mean volume (Bld) [Entitic vol] 10.2 fL Normal 9.4-12.4 [facility] Comment on above: Performed By: #### L [id number] #### LAB [address] [place] [address] Jaron Méndez M.D. [id number] Platelets (Bld) [#/Vol] 299 10*3/uL Normal 150-400 [facility] Comment on above: Performed By: #### L [id number] #### LAB [address] [place] [address] Jaron Méndez M.D. [id number] RBC (Bld) [#/Vol] 3.29 10*6/uL Low 4.00-5.20 [facility] Comment on above: Performed By: #### L [id number] #### MH LAB [address] [place] [id number] Jaron Méndez M.D. [id number] WBC (Bld) [#/Vol] 6.54 10*3/uL Normal 4.50-11.00 [facility] Comment on above: Performed By: #### L [id number] #### MH LAB [address] [place] [address] Jaron Méndez M.D. [id number] COMPREHENSIVE METABOLIC PANE [facility] 11-23-2023 Albumin [Mass/Vol] 3.4 g/dL Normal 3.2-5.2 [facility] Comment on above: Order Comment: [facility] has implemented the eGFR calculation approach that does not have a coefficient for race that conforms to the NKF-ASN Task Force Recommendations. Performed By: #### 4 6126 #### MH LAB [address] [place] [address] Jaron Méndez M.D. [id number] ALP [Catalytic activity/Vol] 82 U/L Normal 40-150 [facility] Comment on above: Order Comment: [facility] has implemented the eGFR calculation approach that does not have a coefficient for race that conforms to the NKF-ASN Task Force Recommendations. Performed By: #### 4 6126 #### MH LAB [address] [place] [address] Jaron Méndez M.D. [id number] ALT [Catalytic activity/Vol] 21 U/L Normal 0-35 U/L [facility] Comment on above: Order Comment: [facility] has implemented the eGFR calculation approach that does not have a coefficient for race that conforms to the NKF-ASN Task Force Recommendations. Performed By: #### 4 6126 #### MH LAB [address] [place] [address] Jaron Méndez M.D. [id number] Anion gap [Moles/Vol] 16 mmol/L Normal 10-20 [facility] Comment on above: Order Comment: [facility] has implemented the eGFR calculation approach that does not have a coefficient for race that conforms to the NKF-ASN Task Force Recommendations. Performed By: #### 4 6126 #### LAB [address] [place] [address] Jaron Méndez M.D. [id number] AST [Catalytic activity/Vol] 43 U/L High 0-35 U/L [facility] Comment on above: Order Comment: [facility] has implemented the eGFR calculation approach that does not have a coefficient for race that conforms to the NKF-ASN Task Force Recommendations. Performed By: #### 4 6126 #### LAB [address] [place] [address] Jaron Méndez M.D. [id number] Bilirubin [Mass/Vol] 0.3 mg/dL Normal 0.0-1.3 [facility] Comment on above: Order Comment: [facility] has implemented the eGFR calculation approach that does not have a coefficient for race that conforms to the NKF-ASN Task Force Recommendations. Performed By: #### 4 6126 #### LAB [address] [place] [address] Jaron Méndez M.D. [id number] Calcium [Mass/Vol] 8.8 mg/dL Normal 8.4-10.2 [facility] Comment on above: Order Comment: [facility] has implemented the eGFR calculation approach that does not have a coefficient for race that conforms to the NKF-ASN Task Force Recommendations. Performed By: #### 4 6126 #### LAB [address] [place] [address] Jaron Méndez M.D. [id number] Chloride [Moles/Vol] 101 mmol/L Normal 98-108 [facility] Comment on above: Order Comment: [facility] has implemented the eGFR calculation approach that does not have a coefficient for race that conforms to the NKF-ASN Task Force Recommendations. Performed By: #### 4 6126 #### LAB [address] [place] [address] Jaron Méndez M.D. [id number] Creatinine [Mass/Vol] 1.34 mg/dL High 0.60-1.10 [facility] Comment on above: Order Comment: [facility] has implemented the eGFR calculation approach that does not have a coefficient for race that conforms to the NKF-ASN Task Force Recommendations. Performed By: #### 4 6126 #### LAB [address] [place] [address] Jaron Méndez M.D. [id number] EGFR 45 mL/min/1.73 m2 Low >=60 [facility] Comment on above: Order Comment: [facility] has implemented the eGFR calculation approach that does not have a coefficient for race that conforms to the NKF-ASN Task Force Recommendations. Result Comment: Joi mated GFR was calculated using the 2020 CKD-EPI creatinine equation. Performed By: #### 4 6126 #### LAB [address] [place] [address] Jaron Méndez M.D. [id number] Glucose [Mass/Vol] 102 mg/dL High 65-99 [facility] Comment on above: Order Comment: [facility] has implemented the eGFR calculation approach that does not have a coefficient for race that conforms to the NKF-ASN Task Force Recommendations. Performed By: #### 4 6126 #### LAB [address] [place] [address] Jaron Méndez M.D. [id number] HCO3 (Bld) [Moles/Vol] 21 mmol/L Normal 21-32 [facility] Comment on above: Order Comment: [facility] has implemented the eGFR calculation approach that does not have a coefficient for race that conforms to the NKF-ASN Task Force Recommendations. Performed By: #### 4 6126 #### LAB [address] [place] [address] Jaron Méndez M.D. [id number] Potassium [Moles/Vol] 4.4 mmol/L Normal 3.5-5.1 [facility] Comment on above: Order Comment: [facility] has implemented the eGFR calculation approach that does not have a coefficient for race that conforms to the NKF-ASN Task Force Recommendations. Performed By: #### 4 6126 #### LAB [address] [place] [address] Jaron Méndez M.D. [id number] Protein [Mass/Vol] 7.0 g/dL Normal 6.0-8.0 [facility] Comment on above: Order Comment: [facility] has implemented the eGFR calculation approach that does not have a coefficient for race that conforms to the NKF-ASN Task Force Recommendations. Performed By: #### 4 6126 #### LAB [address] [place] [address] Jaron Méndez M.D. [id number] Sodium [Moles/Vol] 134 mmol/L Low 135-145 [facility] Comment on above: Order Comment: [facility] has implemented the eGFR calculation approach that does not have a coefficient for race that conforms to the NKF-ASN Task Force Recommendations. Performed By: #### 4 6126 #### LAB [address] [place] [address] Jaron Méndez M.D. [id number] Urea nitrogen [Mass/Vol] 30 mg/dL High 8-25 [facility] Comment on above: Order Comment: [facility] has implemented the eGFR calculation approach that does not have a coefficient for race that conforms to the NKF-ASN Task Force Recommendations. Performed By: #### 4 6126 #### LAB [address] [place] [address] Jaron Méndez M.D. [id number] Urea nitrogen/Creatinine [Mass ratio] 22.4 mg/mg High 10.0-20.0 [facility] Comment on above: Order Comment: [facility] has implemented the eGFR calculation approach that does not have a coefficient for race that conforms to the NKF-ASN Task Force Recommendations. Performed By: #### 4 6126 #### LAB [address] [place] [address] Jaron Méndez M.D. [id number] External Lab PT/INRon 2023 INR Coag (PPP) [Relative time] 2.5 {INR} [facility] No Panel Informationon 11-20 [facility] POCT PT/INROrdered By: Adilene Albright on 11-21-2023 INR Coag (Bld) [Relative time] 2.5 {INR} Abnormal 0.8 - 1.1 [facility] Interpretation and review of laboratory results Abnormal [facility] US RENAL ARTERY DUPLEX COMPL ETEon 11-16-2023 US RENAL ARTERY DUPLEX COMPLETE Patient Info Name: SCOTT OBREGON Age: 63 years : 1960 Gender: Female Exam Date: 11/16/2023 8:47 AM Patient Status: Outpatient 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 Kruger/Dr. Guerra Z98.890 - Other specified postprocedural states Procedure Description 59466 Duplex scan of arterial inflow and venous [...] John MD on 11/16/2023 01:27 PM Normal [facility] US RENAL ARTERY DUPLEX COMPLETE Patient Info Name: SCOTT OBREGON Age: 63 years : 1960 Gender: Female Exam Date: 11/16/2023 8:47 AM Patient Status: Outpatient Traffic Workforce Representative: Gosia Eric RDMS, RVT Referring Physician: TYLOR KRUGER ; Indications - 10-09-2023 Emergent EVAR with renal stenting with Dr. Kruger/Dr. Guerra Z98.890 - Other specified postprocedural states Procedure Description 81420 Duplex scan of arterial inflow and venous [...] MonNov 16, 2023 1:32:30 PM EDT Normal [facility] External Lab PT/INRon 2023 INR Coag (PPP) [Relative time] 3.5 {INR} [facility] No Panel Informationon 11-13 [facility] POCT PT/INROrdered By: Adilene Albright on 11-14-2023 INR Coag (Bld) [Relative time] 3.5 {INR} Abnormal 0.8 - 1.1 [facility] Interpretation and review of laboratory results Abnormal [facility] External Lab PT/INRon 2023 INR Coag (PPP) [Relative time] 2.3 {INR} [facility] No Panel Informationon 11-07 [facility] POCT PT/INROrdered By: Antonietta Monk on 11-08-2023 INR Coag (Bld) [Relative time] 2.3 {INR} Abnormal 0.8 - 1.1 [facility] Interpretation and review of laboratory results Abnormal [facility] PT Coag (PPP) [Time]on 11-01 INR Coag (PPP) [Relative time] 2.7 {INR} Normal <=5.0 [facility] Comment on above: Order Comment: The r ecommended therapeutic INR range for most cardiac indications is 2.0-3.0 For high intensity therapy (i.e. mechanical heart valves), the recommended range is 2.5-3.5 Performed By: #### 5 902-2 #### [facility] ([facility]) LAB [address] [place] [address] Prothrombin timeon PT Coag (PPP) [Time] 28.4 s High 11.9-14.7 [facility] Comment on above: Order Comment: The r ecommended therapeutic INR range for most cardiac indications is 2.0-3.0 For high intensity therapy (i.e. mechanical heart valves), the recommended range is 2.5-3.5 Performed By: #### 5 902-2 #### [facility] ([facility]) LAB [address] [place] [address] Comprehensive metabolic 2000 panelon 10-31-2023 Albumin [Mass/Vol] 2.6 g/dL Low 3.5-4.8 [facility] Comment on above: Performed By: #### 5 902-2 #### [facility] [place] ([facility]) LAB [address] [place] [address] ALP [Catalytic activity/Vol] 59 U/L Normal 32-91 [facility] Comment on above: Performed By: #### 5 902-2 #### [facility] ([facility]) LAB [address] [place] [address] ALT [Catalytic activity/Vol] 21 U/L Normal 7-52 [facility] Comment on above: Performed By: #### 5 902-2 #### [facility] [place] [facility] [address] [place] [address] Anion gap [Moles/Vol] 10 mmol/L Normal 6-18 [facility] Comment on above: Performed By: #### 5 902-2 #### [facility] [address] [place] [address] AST [Catalytic activity/Vol] 32 U/L Normal 15-41 [facility] Comment on above: Performed By: #### 5 902-2 #### [facility] [place] [facility] LAB [address] [place] [address] Bilirubin [Mass/Vol] 0.4 mg/dL Normal 0.3-1.2 [facility] Comment on above: Performed By: #### 5 902-2 #### [facility] [place] [facility] LAB [address] [place] [address] Calcium [Mass/Vol] 8.3 mg/dL Low 8.9-10.3 [facility] Comment on above: Performed By: #### 5 902-2 #### [facility] [place] [facility] LAB [address] [place] [address] Chloride [Moles/Vol] 105 mmol/L Normal 98-107 [facility] Comment on above: Performed By: #### 5 902-2 #### [facility] [place] ([facility]) LAB [address] [place] [address] CO2 [Moles/Vol] 20 mmol/L Low 22-32 [facility] Comment on above: Performed By: #### 5 902-2 #### [facility] [place] ([facility]) LAB [address] [place] [address] Creatinine [Mass/Vol] 1.12 mg/dL Normal 0.60-1.30 [facility] Comment on above: Performed By: #### 5 902-2 #### [facility] [place] ([facility]) LAB [address] [place] [address] GFR/1.73 sq M.predicted among non-blacks MDRD (S/P/Bld) [Vol rate/Area] 56 mL/min/{1.73_m2} Low >=60 [facility] Comment on above: Result Comment: Calc ulation based on the?Chronic Kidney Disease Epidemiology Collaboration (CKD-EPI) equation refit?without adjustment for race. Performed By: #### 5 902-2 #### [facility] [place] [facility] LAB [address] [place] [address] Glucose [Mass/Vol] 76 mg/dL Normal 70-99 [facility] Comment on above: Performed By: #### 5 902-2 #### [facility] [place] [facility] [address] [place] [address] 91746 Potassium [Moles/Vol] 4.7 mmol/L Normal 3.6-5.1 [facility] Comment on above: Performed By: #### 5 902-2 #### [facility] [place] ([facility] [address] [place] [address] 55479 Protein [Mass/Vol] 6.4 g/dL Normal 6.1-7.9 [facility] Comment on above: Performed By: #### 5 902-2 #### [facility] [place] [facility] [address] [place] [address] 05185 Sodium [Moles/Vol] 135 mmol/L Low 136-145 [facility] Comment on above: Performed By: #### 5 902-2 #### [facility] [place] [facility] [address] [place] [address] 93362 Urea nitrogen [Mass/Vol] 30 mg/dL High 8-20 [facility] Comment on above: Performed By: #### 5 902-2 #### [facility] [place] [facility] [address] [place] [address] 67046 Urea nitrogen/Creatinine [Mass ratio] 26.8 mg/mg High 12.0-20.0 [facility] Comment on above: Performed By: #### 5 902-2 #### [facility] [place] [facility] [address] [place] [address] 82535 Hemogram and platelets WO di fferential panel (Bld)on 10-31-2023 Erythrocyte distribution width (RBC) [Ratio] 19.0 % High 11.0-14.8 [facility] Comment on above: Performed By: #### 5 902-2 #### [facility] [place] ([facility] [address] [place] [address] 60185 Hematocrit (Bld) [Volume fraction] 28.9 % Low 34.3-47.9 [facility] Comment on above: Performed By: #### 5 902-2 #### [facility] [place] ([facility] [address] [place] [address] 79258 Hemoglobin (Bld) [Mass/Vol] 8.8 g/dL Low 12.0-16.0 [facility] Comment on above: Performed By: #### 5 902-2 #### [facility] [place] ([facility] [address] [place] [address] 71375 MCH 26.7 pcg Low 27.0-34.0 [facility] Comment on above: Performed By: #### 902-2 #### [facility] [place] ([facility] [address] [place] [address] 14105 MCHC (RBC) [Mass/Vol] 30.4 g/dL Low 30.8-35.3 [facility] Comment on above: Performed By: #### 902-2 #### [facility] [place] ([facility] [address] [place] [address] 03347 MCV (RBC) [Entitic vol] 87.8 fL Normal 80.0-97.0 [facility] Comment on above: Performed By: #### 902-2 #### [facility] [place] ([facility] [address] [place] [address] 27367 Platelet mean volume (Bld) [Entitic vol] 9.3 fL Normal 6.2-12.1 [facility] Comment on above: Performed By: #### 5 902-2 #### [facility] [place] [address] [place] [address] 01518 Platelets (Bld) [#/Vol] 369 10*3/uL Normal 142-424 [facility] Comment on above: Performed By: #### 5 902-2 #### [facility] [place] [address] [place] [address] 05451 RBC (Bld) [#/Vol] 3.29 10*6/uL Low 3.74-5.34 [facility] Comment on above: Performed By: #### 5 902-2 #### [facility] ([facility]) [facility] [address] [place] [address] 68375 WBC (Bld) [#/Vol] 7.3 10*3/uL Normal 4.6-10.2 [facility] Comment on above: Performed By: #### 5 902-2 #### [facility] ([facility]) LAB [address] [place] [address] 57873 PT Coag (PPP) [Time]on 10-30 INR Coag (PPP) [Relative time] 2.8 {INR} Normal <=5.0 [facility] Comment on above: Order Comment: The r ecommended therapeutic INR range for most cardiac indications is 2.0-3.0 For high intensity therapy (i.e. mechanical heart valves), the recommended range is 2.5-3.5 Performed By: #### 5 902-2 #### [facility] ([facility]) LAB [address] [place] [address] 87160 Prothrombin timeon PT Coag (PPP) [Time] 29.2 s High 11.9-14.7 [facility] Comment on above: Order Comment: The r ecommended therapeutic INR range for most cardiac indications is 2.0-3.0 For high intensity therapy (i.e. mechanical heart valves), the recommended range is 2.5-3.5 Performed By: #### 5 902-2 #### [facility] ([facility]) [facility] [address] [place] [address] 66026 Basic metabolic 2000 panelon 10-30-2023 Anion gap [Moles/Vol] 7 mmol/L Normal 6-18 [facility] Comment on above: Performed By: #### 2 4321-2 #### [facility] ([facility]) [facility] [address] [place] [address] 32874 Calcium [Mass/Vol] 8.3 mg/dL Low 8.9-10.3 [facility] Comment on above: Performed By: #### 2 4321-2 #### [facility] ([facility] [address] [place] [address] Chloride [Moles/Vol] 104 mmol/L Normal 98-107 [facility] Comment on above: Performed By: #### 2 4321-2 #### [facility] [place] ([facility]) [facility] [address] [place] [address] CO2 [Moles/Vol] 22 mmol/L Normal 22-32 [facility] Comment on above: Performed By: #### 2 4321-2 #### [facility] [place] [facility]) [facility] [address] [place] [address] Creatinine [Mass/Vol] 1.20 mg/dL Normal 0.60-1.30 [facility] Comment on above: Performed By: #### 2 4321-2 #### [facility] ([facility]) [facility] [address] [place] [address] 56485 GFR/1.73 sq M.predicted among non-blacks MDRD (S/P/Bld) [Vol rate/Area] 52 mL/min/{1.73_m2} Low >=60 [facility] Comment on above: Result Comment: Calc ulation based on the?Chronic Kidney Disease Epidemiology Collaboration (CKD-EPI) equation refit?without adjustment for race. Performed By: #### 2 4321-2 #### [facility] [place] ([facility]) [facility] [address] [place] [address] Glucose [Mass/Vol] 79 mg/dL Normal 70-99 [facility] Comment on above: Performed By: #### 2 4321-2 #### [facility] [place] [facility]) [facility] [address] [place] [address] Potassium [Moles/Vol] 4.4 mmol/L Normal 3.6-5.1 [facility] Comment on above: Performed By: #### 2 4321-2 #### [facility] [place] ([facility]) [facility] [address] [place] [address] Sodium [Moles/Vol] 133 mmol/L Low 136-145 [facility] Comment on above: Performed By: #### 2 4321-2 #### [facility] [place] ([facility]) [facility] [address] [place] [address] Urea nitrogen [Mass/Vol] 29 mg/dL High 8-20 [facility] Comment on above: Performed By: #### 2 4321-2 #### [facility] [place] [facility]) [facility] [address] [place] [address] 03148 Urea nitrogen/Creatinine [Mass ratio] 24.2 mg/mg High 12.0-20.0 [facility] Comment on above: Performed By: #### 2 4321-2 #### [facility] [place] [facility] [address] [place] [address] 99665 Hemogram and platelets WO di fferential panel (Bld)on 10-30-2023 Erythrocyte distribution width (RBC) [Ratio] 19.1 % High 11.0-14.8 [facility] Comment on above: Performed By: #### 5 902-2 #### [facility] [address] [place] [address] 29179 Hematocrit (Bld) [Volume fraction] 29.6 % Low 34.3-47.9 [facility] Comment on above: Performed By: #### 5 902-2 #### [facility] [address] [place] [address] 64963 Hemoglobin (Bld) [Mass/Vol] 9.1 g/dL Low 12.0-16.0 [facility] Comment on above: Performed By: #### 5 902-2 #### [facility] [address] [place] [address] 34892 MCH 26.8 pcg Low 27.0-34.0 [facility] Comment on above: Performed By: #### 5 902-2 #### [facility] [place] [facility] [address] [place] [address] 23661 MCHC (RBC) [Mass/Vol] 30.7 g/dL Low 30.8-35.3 [facility] Comment on above: Performed By: #### 902-2 #### [facility] [place] ([facility]) [facility] [address] [place] [address] 61759 MCV (RBC) [Entitic vol] 87.1 fL Normal 80.0-97.0 [facility] Comment on above: Performed By: #### 902-2 #### [facility] [place] ([facility]) [facility] [address] [place] [address] 78781 Platelet mean volume (Bld) [Entitic vol] 9.5 fL Normal 6.2-12.1 [facility] Comment on above: Performed By: #### 902-2 #### [facility] [place] ([facility]) [facility] [address] [place] [address] 08989 Platelets (Bld) [#/Vol] 338 10*3/uL Normal 142-424 [facility] Comment on above: Performed By: #### 2-2 #### [facility] [place] [facility] [address] [place] [address] 02844 RBC (Bld) [#/Vol] 3.40 10*6/uL Low 3.74-5.34 [facility] Comment on above: Performed By: #### -2 #### [facility] [address] [place] [address] 93718 WBC (Bld) [#/Vol] 5.7 10*3/uL Normal 4.6-10.2 [facility] Comment on above: Performed By: #### 902-2 #### [facility] ([facility] [address] [place] [address] 43167 Nuclear IgG IA Ql (S)on Amorphous Crystals, Urine Moderate Abnormal None [facility] Comment on above: Performed By: #### 902-2 #### [facility] ([facility]) [facility] [address] [place] [address] 07584 Bacteria, Urine Rare Abnormal None [facility] Comment on above: Performed By: #### 902-2 #### [facility] ([facility]) [facility] [address] [place] [address] Bilirubin, Urine Negative Normal Negative [facility] Comment on above: Performed By: #### -2 #### [facility] [place] ([facility] [address] [place] [address] Blood, Urine 1+ Abnormal Negative, Trace [facility] Comment on above: Performed By: #### 2-2 #### [facility] [address] [place] [address] 14627 Clarity (U) Hazy Abnormal Clear [facility] Comment on above: Performed By: #### -2 #### [facility] [address] [place] [address] 82272 Color (U) Yellow Normal Yellow [facility] Comment on above: Performed By: #### -2 #### [facility] [address] [place] [address] 70629 Glucose Ql (U) Normal Normal Normal [facility] Comment on above: Performed By: #### -2 #### [facility] [address] [place] [address] 85066 Ketones Ql (U) Negative Normal Negative [facility] Comment on above: Performed By: #### 2-2 #### [facility] [address] [place] [address] Leukocytes, Urine 75 WBCs/mcL Abnormal Negative [facility] Comment on above: Performed By: #### -2 #### [facility] [address] [place] [address] 84872 Mucus, UA Rare Abnormal None [facility] Comment on above: Performed By: #### 2-2 #### [facility] [address] [place] [address] 68691 Nitrite, Urine Negative Normal Negative [facility] Comment on above: Performed By: #### 2-2 #### [facility] ([facility]) [facility] [address] [place] [address] pH (U) 7.5 [pH] Normal 5.0-8.0 [facility] Comment on above: Performed By: #### 902-2 #### [facility] ([facility]) [facility] [address] [place] [address] Protein (U) [Mass/Vol] 50 mg/dL Abnormal Negative [facility] Comment on above: Performed By: #### 902-2 #### [facility] ([facility]) [facility] [address] [place] [address] RBC LM.HPF (Urine sed) [#/Area] 3 /[HPF] Normal 0-5 [facility] Comment on above: Performed By: #### 902-2 #### [facility] ([facility]) [facility] [address] [place] [address] Specific [place] Urine 1.024 Normal 1.002 -1.03 0 [facility] Comment on above: Performed By: #### 90-2 #### [facility] ([facility]) [facility] [address] [place] [address] Squamous Epithelial, Urine Rare Abnormal None [facility] Comment on above: Performed By: #### 902-2 #### [facility] ([facility]) [facility] [address] [place] [address] Triple Phosphate Crystals, Urine Rare Abnormal None [facility] Comment on above: Performed By: #### 902-2 #### [facility] ([facility]) [facility] [address] [place] [address] Urobilinogen, Urine Normal Normal Normal [facility] Comment on above: Performed By: #### 90-2 #### [facility] ([facility]) [facility] [address] [place] [address] WBC LM.HPF (Urine sed) [#/Area] 19 /[HPF] High 0-5 [facility] Comment on above: Performed By: #### 902-2 #### [facility] ([facility]) [facility] [address] [place] [address] PT Coag (PPP) [Time]on 10-29 INR Coag (PPP) [Relative time] 2.5 {INR} Normal <=5.0 [facility] Comment on above: Order Comment: The r ecommended therapeutic INR range for most cardiac indications is 2.0-3.0 For high intensity therapy (i.e. mechanical heart valves), the recommended range is 2.5-3.5 Performed By: #### 5 902-2 #### [facility] ([facility]) [facility] [address] [place] [address] 12897 Prothrombin timeon PT Coag (PPP) [Time] 26.6 s High 11.9-14.7 [facility] Comment on above: Order Comment: The r ecommended therapeutic INR range for most cardiac indications is 2.0-3.0 For high intensity therapy (i.e. mechanical heart valves), the recommended range is 2.5-3.5 Performed By: #### 5 902-2 #### [facility] ([facility]) [facility] [address] [place] [address] 77270 Sodium (U) [Moles/Vol]on Creatinine, Urine 76.8 mg/dL Normal [facility] Comment on above: Order Comment: No re ference range has been established for this assay (test result). Performed By: #### 2 4321-2 #### [facility] ([facility]) [facility] [address] [place] [address] PT Coag (PPP) [Time]on 10-28 INR Coag (PPP) [Relative time] 2.6 {INR} Normal <=5.0 [facility] Comment on above: Order Comment: The r ecommended therapeutic INR range for most cardiac indications is 2.0-3.0 For high intensity therapy (i.e. mechanical heart valves), the recommended range is 2.5-3.5 Performed By: #### 5 902-2 #### [facility] ([facility]) [facility] [address] [place] [address] Prothrombin timeon 4 PT Coag (PPP) [Time] 27.3 s High 11.9-14.7 [facility] Comment on above: Order Comment: The r ecommended therapeutic INR range for most cardiac indications is 2.0-3.0 For high intensity therapy (i.e. mechanical heart valves), the recommended range is 2.5-3.5 Performed By: #### 5 902-2 #### [facility] ([facility]) [facility] [address] [place] [address] PT Coag (PPP) [Time]on 10-27 INR Coag (PPP) [Relative time] 2.6 {INR} Normal <=5.0 [facility] Comment on above: Order Comment: The r ecommended therapeutic INR range for most cardiac indications is 2.0-3.0 For high intensity therapy (i.e. mechanical heart valves), the recommended range is 2.5-3.5 Performed By: #### 5 902-2 #### [facility] ([facility]) [facility] [address] [place] [address] Prothrombin timeon 4 PT Coag (PPP) [Time] 27.3 s High 11.9-14.7 [facility] Comment on above: Order Comment: The r ecommended therapeutic INR range for most cardiac indications is 2.0-3.0 For high intensity therapy (i.e. mechanical heart valves), the recommended range is 2.5-3.5 Performed By: #### 5 902-2 #### [facility] ([facility]) [facility] [address] [place] [address] Comprehensive metabolic 2000 panelon 10-27-2023 Albumin [Mass/Vol] 2.7 g/dL Low 3.5-4.8 [facility] Comment on above: Performed By: #### 2 4323-8 #### [facility] ([facility]) [facility] [address] [place] [address] 26154 ALP [Catalytic activity/Vol] 59 U/L Normal 32-91 [facility] Comment on above: Performed By: #### 2 4323-8 #### [facility] [place] [facility] [address] [place] [address] ALT [Catalytic activity/Vol] 21 U/L Normal 7-52 [facility] Comment on above: Performed By: #### 2 4323-8 #### [facility] [place] [facility] [address] [place] [address] Anion gap [Moles/Vol] 9 mmol/L Normal 6-18 [facility] Comment on above: Performed By: #### 2 432-8 #### [facility] [place] [facility] [address] [place] [address] AST [Catalytic activity/Vol] 34 U/L Normal 15-41 [facility] Comment on above: Performed By: #### 2 432-8 #### [facility] [place] [facility] [address] [place] [address] Bilirubin [Mass/Vol] 0.5 mg/dL Normal 0.3-1.2 [facility] Comment on above: Performed By: #### 2 4322-8 #### [facility] [place] [facility] [address] [place] [address] Calcium [Mass/Vol] 8.4 mg/dL Low 8.9-10.3 [facility] Comment on above: Performed By: #### 2 4323-8 #### [facility] [place] [facility] [address] [place] [address] Chloride [Moles/Vol] 106 mmol/L Normal 98-107 [facility] Comment on above: Performed By: #### 2 4323-8 #### [facility] [place] [facility] [address] [place] [address] CO2 [Moles/Vol] 20 mmol/L Low 22-32 [facility] Comment on above: Performed By: #### 2 4323-8 #### [facility] [place] [facility] [address] [place] [address] Creatinine [Mass/Vol] 1.22 mg/dL Normal 0.60-1.30 [facility] Comment on above: Performed By: #### 2 4323-8 #### [facility] [address] [place] [address] GFR/1.73 sq M.predicted among non-blacks MDRD (S/P/Bld) [Vol rate/Area] 51 mL/min/{1.73_m2} Low >=60 [facility] Comment on above: Result Comment: Calc ulation based on the?Chronic Kidney Disease Epidemiology Collaboration (CKD-EPI) equation refit?without adjustment for race. Performed By: #### 2 4323-8 #### [facility] ([facility]) [facility] [address] [place] [address] 08173 Glucose [Mass/Vol] 78 mg/dL Normal 70-99 [facility] Comment on above: Performed By: #### 2 432-8 #### [facility] [address] [place] [address] 70043 Potassium [Moles/Vol] 4.6 mmol/L Normal 3.6-5.1 [facility] Comment on above: Performed By: #### 2 4323-8 #### [facility] [address] [place] [address] 04738 Protein [Mass/Vol] 6.4 g/dL Normal 6.1-7.9 [facility] Comment on above: Performed By: #### 2 4323-8 #### [facility] [address] [place] [address] 39937 Sodium [Moles/Vol] 135 mmol/L Low 136-145 [facility] Comment on above: Performed By: #### 2 4323-8 #### [facility] [place] [facility] [address] [place] [address] 12119 Urea nitrogen [Mass/Vol] 33 mg/dL High 8-20 [facility] Comment on above: Performed By: #### 2 4323-8 #### [facility] ([facility]) [facility] [address] [place] [address] 56571 Urea nitrogen/Creatinine [Mass ratio] 27.0 mg/mg High 12.0-20.0 [facility] Comment on above: Performed By: #### 2 4323-8 #### [facility] ([facility]) [facility] [address] [place] [address] 00790 Hemogram and platelets WO di fferential panel (Bld)on 10-27-2023 Erythrocyte distribution width (RBC) [Ratio] 19.0 % High 11.0-14.8 [facility] Comment on above: Performed By: #### 2 4321-2 #### [facility] ([facility]) [facility] [address] [place] [address] 66706 Hematocrit (Bld) [Volume fraction] 28.1 % Low 34.3-47.9 [facility] Comment on above: Performed By: #### 2 4321-2 #### [facility] ([facility]) [facility] [address] [place] [address] 99974 Hemoglobin (Bld) [Mass/Vol] 8.7 g/dL Low 12.0-16.0 [facility] Comment on above: Performed By: #### 2 4321-2 #### [facility] ([facility]) [facility] [address] [place] [address] 68348 MCH 26.4 pcg Low 27.0-34.0 [facility] Comment on above: Performed By: #### 2 4321-2 #### [facility] ([facility]) [facility] [address] [place] [address] 08896 MCHC (RBC) [Mass/Vol] 31.0 g/dL Normal 30.8-35.3 [facility] Comment on above: Performed By: #### 2 4321-2 #### [facility] ([facility]) [facility] [address] [place] [address] 75515 MCV (RBC) [Entitic vol] 85.2 fL Normal 80.0-97.0 [facility] Comment on above: Performed By: #### 2 4321-2 #### [facility] [place] ([facility] [address] [place] [address] Platelet mean volume (Bld) [Entitic vol] 9.2 fL Normal 6.2-12.1 [facility] Comment on above: Performed By: #### 2 4321-2 #### [facility] [place] ([facility] [address] [place] [address] 87198 Platelets (Bld) [#/Vol] 396 10*3/uL Normal 142-424 [facility] Comment on above: Performed By: #### 2 4321-2 #### [facility] [place] ([facility] [address] [place] [address] 63602 RBC (Bld) [#/Vol] 3.30 10*6/uL Low 3.74-5.34 [facility] Comment on above: Performed By: #### 2 4321-2 #### [facility] [place] [facility] [address] [place] [address] 54194 WBC (Bld) [#/Vol] 7.2 10*3/uL Normal 4.6-10.2 [facility] Comment on above: Performed By: #### 2 4321-2 #### [facility] [place] [facility] [address] [place] [id number] PT Coag (PPP) [Time]on 10-26 INR Coag (PPP) [Relative time] 2.5 {INR} Normal <=5.0 [facility] Comment on above: Order Comment: The r ecommended therapeutic INR range for most cardiac indications is 2.0-3.0 For high intensity therapy (i.e. mechanical heart valves), the recommended range is 2.5-3.5 Performed By: #### 5 902-2 #### [facility] [place] ([facility] [place] [address] [place] [address] Prothrombin timeon PT Coag (PPP) [Time] 26.3 s High 11.9-14.7 [facility] [facility] Comment on above: Order Comment: The r ecommended therapeutic INR range for most cardiac indications is 2.0-3.0 For high intensity therapy (i.e. mechanical heart valves), the recommended range is 2.5-3.5 Performed By: #### 5 902-2 #### [facility] [address] [place] [address] Basic metabolic 2000 panelon 10-26-2023 Iron [Mass/Vol] 25 ug/dL Low 37-145 [facility] Comment on above: Performed By: #### 2 4321-2 #### [facility] [address] [place] [address] Iron Saturation 12 % Low 20-55 [facility] Comment on above: Performed By: #### 2 4321-2 #### [facility] [address] [place] [address]809 TIBC 214 mcg/dL Low 228-428 [facility] Comment on above: Performed By: #### 2 4321-2 #### [facility] [address] [place] [address]20 Hemogram and platelets WO di fferential panel (Bld)on 10-26-2023 Erythrocyte distribution width (RBC) [Ratio] 18.9 % High 11.0-14.8 [facility] Comment on above: Performed By: #### 2 4317-0 #### [facility] [address] [place] [address]94 Hematocrit (Bld) [Volume fraction] 28.9 % Low 34.3-47.9 [facility] Comment on above: Performed By: #### 2 4317-0 #### [facility] [place] [facility] [address] [place] [address] 09161 Hemoglobin (Bld) [Mass/Vol] 9.0 g/dL Low 12.0-16.0 [facility] Comment on above: Performed By: #### 2 4317-0 #### [facility] [place] [facility] [address] [place] [address] 15053 MCH 26.4 pcg Low 27.0-34.0 [facility] Comment on above: Performed By: #### 2 4317-0 #### [facility] [place] ([facility] [address] [place] [address] MCHC (RBC) [Mass/Vol] 31.1 g/dL Normal 30.8-35.3 [facility] Comment on above: Performed By: #### 2 7-0 #### [facility] [place] ([facility] [address] [place] [address] 17019 MCV (RBC) [Entitic vol] 84.8 fL Normal 80.0-97.0 [facility] Comment on above: Performed By: #### 2 4317-0 #### [facility] [place] ([facility] [address] [place] [address] 14388 Platelet mean volume (Bld) [Entitic vol] 9.1 fL Normal 6.2-12.1 [facility] Comment on above: Performed By: #### 2 4317-0 #### [facility] [place] ([facility] [address] [place] [address] 44700 Platelets (Bld) [#/Vol] 417 10*3/uL Normal 142-424 [facility] Comment on above: Performed By: #### 2 4317-0 #### [facility] [place] ([facility] [address] [place] [address] 31025 RBC (Bld) [#/Vol] 3.41 10*6/uL Low 3.74-5.34 [facility] Comment on above: Performed By: #### 2 4317-0 #### [facility] [place] [facility] [address] [place] [address] 70918 WBC (Bld) [#/Vol] 7.5 10*3/uL Normal 4.6-10.2 [facility] Comment on above: Performed By: #### 2 4317-0 #### [facility] [place] [facility] [address] [place] [address] 12615 PT Coag (PPP) [Time]on 10-25 INR Coag (PPP) [Relative time] 2.1 {INR} Normal <=5.0 [facility] Comment on above: Order Comment: The r ecommended therapeutic INR range for most cardiac indications is 2.0-3.0 For high intensity therapy (i.e. mechanical heart valves), the recommended range is 2.5-3.5 Performed By: #### 5 902-2 #### [facility] ([facility]) [facility] [address] [place] [address] Prothrombin timeon 4 PT Coag (PPP) [Time] 23.2 s High 11.9-14.7 [facility] Comment on above: Order Comment: The r ecommended therapeutic INR range for most cardiac indications is 2.0-3.0 For high intensity therapy (i.e. mechanical heart valves), the recommended range is 2.5-3.5 Performed By: #### 5 902-2 #### [facility] ([facility] [address] [place] [address]2686 Basic metabolic 2000 panelon 10-25-2023 Anion gap [Moles/Vol] 9 mmol/L Normal 6-18 [facility] Comment on above: Performed By: #### 5 902-2 #### [facility] ([facility] [address] [place] [address]16 Calcium [Mass/Vol] 8.4 mg/dL Low 8.9-10.3 [facility] Comment on above: Performed By: #### 5 902-2 #### [facility] ([facility] [address] [place] [address] 24301 Chloride [Moles/Vol] 104 mmol/L Normal 98-107 [facility] Comment on above: Performed By: #### 5 902-2 #### [facility] ([facility] [address] [place] [address] 35478 CO2 [Moles/Vol] 20 mmol/L Low 22-32 [facility] Comment on above: Performed By: #### 5 902-2 #### [facility] ([facility] [address] [place] [address] Creatinine [Mass/Vol] 1.25 mg/dL Normal 0.60-1.30 [facility] Comment on above: Performed By: #### 5 902-2 #### [facility] [place] [facility] [address] [place] [address] GFR/1.73 sq M.predicted among non-blacks MDRD (S/P/Bld) [Vol rate/Area] 49 mL/min/{1.73_m2} Low >=60 [facility] Comment on above: Result Comment: Calc ulation based on the?Chronic Kidney Disease Epidemiology Collaboration (CKD-EPI) equation refit?without adjustment for race. Performed By: #### 5 902-2 #### [facility] [address] [place] [address] Glucose [Mass/Vol] 80 mg/dL Normal 70-99 [facility] Comment on above: Performed By: #### 5 902-2 #### [facility] [place] [facility] [address] [place] [address] 0[address]99 Potassium [Moles/Vol] 4.6 mmol/L Normal 3.6-5.1 [facility] Comment on above: Performed By: #### 5 902-2 #### [facility] [address] [place] [address] Sodium [Moles/Vol] 133 mmol/L Low 136-145 [facility] Comment on above: Performed By: #### 5 902-2 #### [facility] [place] [facility] [address] [place] [address] Urea nitrogen [Mass/Vol] 27 mg/dL High 8-20 [facility] Comment on above: Performed By: #### 5 902-2 #### [facility] [place] [facility] [address] [place] [address] Urea nitrogen/Creatinine [Mass ratio] 21.6 mg/mg High 12.0-20.0 [facility] Comment on above: Performed By: #### 5 902-2 #### [facility] [address] [place] [address] Blood type and Indirect anti body screen panel (Bld)on 10-25-2023 ABO group Nom (Bld) O Normal [facility] Comment on above: Performed By: #### 3 4532-2 #### [facility] [address] [place] [address] Rh Type Positive Normal [facility] Comment on above: Performed By: #### 3 4532-2 #### [facility] [address] [place] [address]012 Hemogram and platelets WO di fferential panel (Bld)on 10-25-2023 Erythrocyte distribution width (RBC) [Ratio] 18.3 % High 11.0-14.8 [facility] Comment on above: Performed By: #### 2 4317-0 #### [facility] [address] [place] [address]114 Hematocrit (Bld) [Volume fraction] 22.1 % Low 34.3-47.9 [facility] Comment on above: Performed By: #### 2 4317-0 #### [facility] [address] [place] [address] 90917 Hemoglobin (Bld) [Mass/Vol] 6.7 g/dL Critically low 12.0-16.0 [facility] Comment on above: Performed By: #### 2 4317-0 #### [facility] [place] [facility] [address] [place] [address] MCH 27.0 pcg Normal 27.0-34.0 [facility] Comment on above: Performed By: #### 2 4317-0 #### [facility] ([facility] [address] [place] [address] MCHC (RBC) [Mass/Vol] 30.3 g/dL Low 30.8-35.3 [facility] Comment on above: Performed By: #### 2 4317-0 #### [facility] [place] [facility] [address] [place] [address] 19519 MCV (RBC) [Entitic vol] 89.1 fL Normal 80.0-97.0 [facility] Comment on above: Performed By: #### 2 4317-0 #### [facility] [address] [place] [address] 30812 Platelet mean volume (Bld) [Entitic vol] 9.1 fL Normal 6.2-12.1 [facility] Comment on above: Performed By: #### 2 4317-0 #### [facility] [address] [place] [address] 39493 Platelets (Bld) [#/Vol] 434 10*3/uL High 142-424 [facility] Comment on above: Performed By: #### 2 4317-0 #### [facility] [address] [place] [address] 35184 RBC (Bld) [#/Vol] 2.48 10*6/uL Low 3.74-5.34 [facility] Comment on above: Performed By: #### 2 4317-0 #### [facility] ([facility]) [facility] [address] [place] [address] 45621 WBC (Bld) [#/Vol] 8.6 10*3/uL Normal 4.6-10.2 [facility] Comment on above: Performed By: #### 2 4317-0 #### [facility] [address] [place] [address] 40258 PT Coag (PPP) [Time]on 10-24 INR Coag (PPP) [Relative time] 2.0 {INR} Normal <=5.0 [facility] Comment on above: Order Comment: The r ecommended therapeutic INR range for most cardiac indications is 2.0-3.0 For high intensity therapy (i.e. mechanical heart valves), the recommended range is 2.5-3.5 Performed By: #### 5 902-2 #### [facility] ([facility] [address] [place] [address] Prothrombin timeon 4 PT Coag (PPP) [Time] 22.0 s High 11.9-14.7 [facility] Comment on above: Order Comment: The r ecommended therapeutic INR range for most cardiac indications is 2.0-3.0 For high intensity therapy (i.e. mechanical heart valves), the recommended range is 2.5-3.5 Performed By: #### 5 902-2 #### [facility] ([facility] [address] [place] [address] 16065 PT Coag (PPP) [Time]on 10-23 INR Coag (PPP) [Relative time] 1.8 {INR} Normal <=5.0 [facility] Comment on above: Order Comment: The r ecommended therapeutic INR range for most cardiac indications is 2.0-3.0 For high intensity therapy (i.e. mechanical heart valves), the recommended range is 2.5-3.5 Performed By: #### 5 902-2 #### [facility] ([facility] [address] [place] [address] 55268 Prothrombin timeon 4 PT Coag (PPP) [Time] 20.2 s High 11.9-14.7 [facility] Comment on above: Order Comment: The r ecommended therapeutic INR range for most cardiac indications is 2.0-3.0 For high intensity therapy (i.e. mechanical heart valves), the recommended range is 2.5-3.5 Performed By: #### 5 902-2 #### [facility] [address] [place] [address] 06115 PT Coag (PPP) [Time]on 10-22 INR Coag (PPP) [Relative time] 1.7 {INR} Normal <=5.0 [facility] Comment on above: Order Comment: The r ecommended therapeutic INR range for most cardiac indications is 2.0-3.0For high intensity therapy (i.e. mechanical heart valves), the recommended range is 2.5-3.5 Performed By: #### 2 4321-2 #### [facility] [address] [place] [address] Prothrombin timeon 4 PT Coag (PPP) [Time] 19.6 s High 11.9-14.7 [facility] Comment on above: Order Comment: The r ecommended therapeutic INR range for most cardiac indications is 2.0-3.0For high intensity therapy (i.e. mechanical heart valves), the recommended range is 2.5-3.5 Performed By: #### 2 4321-2 #### [facility] [address] [place] [address] 63572 PT Coag (PPP) [Time]on 10-20 INR Coag (PPP) [Relative time] 2.9 {INR} Normal <=5.0 [facility] Comment on above: Order Comment: The r ecommended therapeutic INR range for most cardiac indications is 2.0-3.0 For high intensity therapy (i.e. mechanical heart valves), the recommended range is 2.5-3.5 Performed By: #### 5 902-2 #### [facility] [address] [place] [address] Prothrombin timeon 4 PT Coag (PPP) [Time] 29.5 s High 11.9-14.7 [facility] Comment on above: Order Comment: The r ecommended therapeutic INR range for most cardiac indications is 2.0-3.0 For high intensity therapy (i.e. mechanical heart valves), the recommended range is 2.5-3.5 Performed By: #### 5 902-2 #### [facility] [address] [place] [address] CALCIUM, IONIZEDon 4 CALCIUM IONIZED 4.4 mg/dL Low 4.5-5.3 [facility] Comment on above: Performed By: #### 4 5190 ####[facility] [address] [place], [place] [address] Glenn Gudino M.D. [id number] CBCon 10-20-2023 AUTO NRBC 0.0 % Normal [facility] Comment on above: Performed By: #### 4 5218 ####[facility] [address] [place] [address] Glenn Gudino M.D. [id number] AUTO NRBC ABS COUNT 0.00 K/mcL Normal 0.00-0.00 [facility] Comment on above: Performed By: #### 4 5218 ####[facility] [address] [place] [address] Glenn Gudino M.D. [id number] Erythrocyte distribution width (RBC) [Ratio] 17.4 % High 11.6-14.8 [facility] Comment on above: Performed By: #### 4 5218 ####[facility] [address] [place], [place] [address] Glenn Gudino M.D. [id number] Hematocrit (Bld) [Volume fraction] 23.6 % Low 36.0-46.0 [facility] Comment on above: Performed By: #### 4 5218 ####[facility] [address] [place], [place] [address] Glenn Gudino M.D. [id number] Hemoglobin (Bld) [Mass/Vol] 7.4 g/dL Low 12.0-16.0 [facility] Comment on above: Performed By: #### 4 5218 ####[facility] [address] [place], [place] [address] Glenn Gudino M.D. [id number] MCH (RBC) [Entitic mass] 27.4 pg Normal 26.0-34.0 [facility] Comment on above: Performed By: #### 4 5218 ####[facility] [address] [place] [address] 92260 Glenn Gudino M.D. [id number] MCV (RBC) [Entitic vol] 87.4 fL Normal 80.0-100.0 [facility] Comment on above: Performed By: #### 4 5218 ####[facility] [address] [place], [place] [address] Glenn Gudino M.D. [id number] MEAN CORPUSCULAR HEMOGLOBIN CONC 31.4 g/dL Normal 31.0-37.0 [facility] Comment on above: Performed By: #### 4 5218 ####[facility] [address] [place], [place] [address] Glenn Gudino M.D. [id number] Platelet mean volume (Bld) [Entitic vol] 9.3 fL Low 9.4-12.4 [facility] Comment on above: Performed By: #### 4 5218 ####[facility] [address] [place], [place] [address] Glenn Gudino M.D. [id number] Platelets (Bld) [#/Vol] 489 10*3/uL High 150-400 [facility] Comment on above: Performed By: #### 4 5218 ####[facility] [address] [place], [place] [address] Glenn Gudino M.D. [id number] RBC (Bld) [#/Vol] 2.70 10*6/uL Low 4.00-5.20 [facility] Comment on above: Performed By: #### 4 5218 ####[facility] [address] [place] [address] 6[address] Glenn Gudino M.D. [id number] WBC (Bld) [#/Vol] 12.80 10*3/uL High 4.50-11.00 [facility] Comment on above: Performed By: #### 4 5218 ####[facility] [address] [place] [address] Glenn Gudino M.D. [id number] COMPREHENSIVE METABOLIC PANE Magdaleno 10-20-2023 Albumin [Mass/Vol] 2.3 g/dL Low 3.2-5.2 [facility] Comment on above: Order Comment: [facility] has implemented the eGFR calculation approach that does not have a coefficient for race that conforms to the NKF-ASN Task Force Recommendations. Performed By: #### 4 6126 ####[facility] [address] [place] [address] 6[address]28 Glenn Gudino M.D. [id number] ALP [Catalytic activity/Vol] 104 U/L Normal 40-150 [facility] Comment on above: Order Comment: [facility] has implemented the eGFR calculation approach that does not have a coefficient for race that conforms to the NKF-ASN Task Force Recommendations. Performed By: #### 4 6126 ####[facility] [address] [place] [address] 18702 Glenn Gudino M.D. [id number] ALT [Catalytic activity/Vol] 26 U/L Normal 0-35 U/L [facility] Comment on above: Order Comment: [facility] has implemented the eGFR calculation approach that does not have a coefficient for race that conforms to the NKF-ASN Task Force Recommendations. Performed By: #### 4 6126 ####[facility] [address] [place] [address] 19644 Glenn Gudino M.D. [id number] Anion gap [Moles/Vol] 11 mmol/L Normal 10-20 [facility] Comment on above: Order Comment: [facility] has implemented the eGFR calculation approach that does not have a coefficient for race that conforms to the NKF-ASN Task Force Recommendations. Performed By: #### 4 6126 ####[facility] [address] [place] [address] 04987 Glenn Gudino M.D. [id number] AST [Catalytic activity/Vol] 59 U/L High 0-35 U/L [facility] Comment on above: Order Comment: [facility] has implemented the eGFR calculation approach that does not have a coefficient for race that conforms to the NKF-ASN Task Force Recommendations. Performed By: #### 4 6126 ####[facility] [address] [place] [address] Glenn Gudino M.D. [id number] Bilirubin [Mass/Vol] 0.4 mg/dL Normal 0.0-1.3 [facility] Comment on above: Order Comment: [facility] has implemented the eGFR calculation approach that does not have a coefficient for race that conforms to the NKF-ASN Task Force Recommendations. Performed By: #### 4 6126 ####[facility] [address] [place], [place] [address] Glenn Gudnio M.D. [id number] Calcium [Mass/Vol] 7.9 mg/dL Low 8.4-10.2 [facility] Comment on above: Order Comment: [facility] has implemented the eGFR calculation approach that does not have a coefficient for race that conforms to the NKF-ASN Task Force Recommendations. Performed By: #### 4 6126 ####[facility] [address] [place], [place] [address] Glenn Gudino M.D. [id number] Chloride [Moles/Vol] 105 mmol/L Normal 98-108 [facility] Comment on above: Order Comment: [facility] has implemented the eGFR calculation approach that does not have a coefficient for race that conforms to the NKF-ASN Task Force Recommendations. Performed By: #### 4 6126 ####[facility] [address] [place], [place] [address] Glenn Gudino M.D. [id number] Creatinine [Mass/Vol] 0.84 mg/dL Normal 0.60-1.10 [facility] Comment on above: Order Comment: [facility] has implemented the eGFR calculation approach that does not have a coefficient for race that conforms to the NKF-ASN Task Force Recommendations. Performed By: #### 4 6126 ####[facility] [address] [place] [address] 20597 Glenn Gudino M.D. [id number] EGFR 79 mL/min/1.73 m2 Normal >=60 [facility] Comment on above: Order Comment: [facility] has implemented the eGFR calculation approach that does not have a coefficient for race that conforms to the NKF-ASN Task Force Recommendations. Result Comment: Joi mated GFR was calculated using the 2020 CKD-EPI creatinine equation. Performed By: #### 4 6126 ####[facility] [address] [place], [place] [address] Glenn Gudino M.D. [id number] Glucose [Mass/Vol] 106 mg/dL High 65-99 [facility] Comment on above: Order Comment: [facility] has implemented the eGFR calculation approach that does not have a coefficient for race that conforms to the NKF-ASN Task Force Recommendations. Performed By: #### 4 6126 ####[facility] [address] [place] [address] 41027 Glenn Gudino M.D. [id number] HCO3 (Bld) [Moles/Vol] 23 mmol/L Normal 21-32 [facility] Comment on above: Order Comment: [facility] has implemented the eGFR calculation approach that does not have a coefficient for race that conforms to the NKF-ASN Task Force Recommendations. Performed By: #### 4 6126 ####[facility] [address] [place], [place] [address] Glenn Gudino M.D. [id number] Potassium [Moles/Vol] 4.3 mmol/L Normal 3.5-5.1 [facility] Comment on above: Order Comment: [facility] has implemented the eGFR calculation approach that does not have a coefficient for race that conforms to the NKF-ASN Task Force Recommendations. Performed By: #### 4 6126 ####[facility] [address] [place] [address] 64883 Glenn Gudino M.D. [id number] Protein [Mass/Vol] 6.2 g/dL Normal 6.0-8.0 [facility] Comment on above: Order Comment: [facility] has implemented the eGFR calculation approach that does not have a coefficient for race that conforms to the NKF-ASN Task Force Recommendations. Performed By: #### 4 6126 ####[facility] [address] [place] [address] 16570 Glenn Gudino M.D. [id number] Sodium [Moles/Vol] 135 mmol/L Normal 135-145 [facility] Comment on above: Order Comment: [facility] has implemented the eGFR calculation approach that does not have a coefficient for race that conforms to the NKF-ASN Task Force Recommendations. Performed By: #### 4 6126 ####[facility] [address] [place] [address] 24336 Glenn Gudino M.D. [id number] Urea nitrogen [Mass/Vol] 21 mg/dL Normal 8-25 [facility] Comment on above: Order Comment: [facility] has implemented the eGFR calculation approach that does not have a coefficient for race that conforms to the NKF-ASN Task Force Recommendations. Performed By: #### 4 6126 ####[facility] [facility] [address] [place] [address] 59769 Glenn Gudino M.D. [id number] Urea nitrogen/Creatinine [Mass ratio] 25.0 mg/mg High 10.0-20.0 [facility] Comment on above: Order Comment: [facility] has implemented the eGFR calculation approach that does not have a coefficient for race that conforms to the NKF-ASN Task Force Recommendations. Performed By: #### 4 [id number] ####[facility] [address] [place] [address] 65722 Glenn Gudino M.D. [id number] Disch Summon 10-20-2023 Disch Summ Normal [facility] MAGNESIUM LEVELon 10-20-2023 Magnesium [Mass/Vol] 2.1 mg/dL Normal 1.6-2.4 [facility] Comment on above: Performed By: #### 4 6109 ####[facility] [address] [place], [place] [address] Glenn Gudino M.D. [id number] PHOSPHORUSon 10-20-2023 Phosphate [Mass/Vol] 2.8 mg/dL Normal 2.8-4.1 [facility] Comment on above: Performed By: #### 4 6299 ####[facility] [address] [place], [place] [address] Glenn Gudino M.D. [id number] PT/INRon 10-20-2023 INR Coag (PPP) [Relative time] 3.6 {INR} High 0.8-1.1 [facility] Comment on above: Order Comment: Jennifer retana the induction phase of oral anticoagulation, the INR may not reflect the anticoagulation status of the patient. Therapeutic ranges for INR's are:Most clinical situations: INR 2.0-3.0Mechanical Prosthetic Valve: INR 2.5-3.5Critical: INR >5.0 Performed By: #### 4 6391 ####[facility] [address] [place] [address] 10015 Glenn Gudino M.D. [id number] PT Coag (PPP) [Time] 37.0 s High 11.8-14.3 [facility] Comment on above: Order Comment: Jennifer retana the induction phase of oral anticoagulation, the INR may not reflect the anticoagulation status of the patient. Therapeutic ranges for INR's are:Most clinical situations: INR 2.0-3.0Mechanical Prosthetic Valve: INR 2.5-3.5Critical: INR >5.0 Performed By: #### 4 6391 ####[facility] [address] [place], [place] [address] Glenn Gudino M.D. [id number] CALCIUM, IONIZEDon CALCIUM IONIZED 4.4 mg/dL Low 4.5-5.3 [facility] Comment on above: Performed By: #### 4 5190 ####[facility] [address] [place] [address] Glenn Gudino M.D. [id number] CBCon 10-19-2023 AUTO NRBC 0.0 % Normal [facility] Comment on above: Performed By: #### 4 [id number] ####[facility] [address] [place] [address] Glenn Gudino M.D. [id number] AUTO NRBC ABS COUNT 0.00 K/mcL Normal 0.00-0.00 [facility] Comment on above: Performed By: #### 4 [id number] ####[facility] [address] [place], [place] [address] Glenn Gudino M.D. [id number] Erythrocyte distribution width (RBC) [Ratio] 17.4 % High 11.6-14.8 [facility] Comment on above: Performed By: #### 4 [id number] ####[facility] [address] [place], [place] [address] Glenn Gudino M.D. [id number] Hematocrit (Bld) [Volume fraction] 26.6 % Low 36.0-46.0 [facility] Comment on above: Performed By: #### 4 [id number] ####[facility] [address] [place], [place] [address] Glenn Gudino M.D. [id number] Hemoglobin (Bld) [Mass/Vol] 8.3 g/dL Low 12.0-16.0 [facility] Comment on above: Performed By: #### 4 [id number] ####[facility] [address] [place], [place] [address] Glenn Gudino M.D. [id number] MCH (RBC) [Entitic mass] 27.5 pg Normal 26.0-34.0 [facility] Comment on above: Performed By: #### 4 [id number] ####[facility] [address] [place] [address] Glenn Gudino M.D. [id number] MCV (RBC) [Entitic vol] 88.1 fL Normal 80.0-100.0 [facility] Comment on above: Performed By: #### 4 [id number] ####[facility] [address] [place] [address] Glenn Gudino M.D. [id number] MEAN CORPUSCULAR HEMOGLOBIN CONC 31.2 g/dL Normal 31.0-37.0 [facility] Comment on above: Performed By: #### 4 [id number] ####[facility] [address] [place], [place] [address] Glenn Gudino M.D. [id number] Platelet mean volume (Bld) [Entitic vol] 9.2 fL Low 9.4-12.4 [facility] Comment on above: Performed By: #### 4 [id number] ####[facility] [address] [place], [place] [address] Glenn Gudino M.D. [id number] Platelets (Bld) [#/Vol] 485 10*3/uL High 150-400 [facility] Comment on above: Performed By: #### 4 [id number] ####[facility] [address] [place], [place] [address] Glenn Gudino M.D. [id number] RBC (Bld) [#/Vol] 3.02 10*6/uL Low 4.00-5.20 [facility] Comment on above: Performed By: #### 4 [id number] ####[facility] [address] [place] [address] 43670 Glenn Gudino M.D. [id number] WBC (Bld) [#/Vol] 12.60 10*3/uL High 4.50-11.00 [facility] Comment on above: Performed By: #### 4 [id number] ####[facility] [address] [place], [place] [address] Glenn Gudino M.D. [id number] COMPREHENSIVE METABOLIC PANE Magdaleno 10-19-2023 Albumin [Mass/Vol] 2.3 g/dL Low 3.2-5.2 [facility] Comment on above: Order Comment: [facility] has implemented the eGFR calculation approach that does not have a coefficient for race that conforms to the NKF-ASN Task Force Recommendations. Performed By: #### 4 6126 ####[facility] [address] [place] [address] 76238 Glenn Gudino M.D. [id number] ALP [Catalytic activity/Vol] 103 U/L Normal 40-150 [facility] Comment on above: Order Comment: [facility] has implemented the eGFR calculation approach that does not have a coefficient for race that conforms to the NKF-ASN Task Force Recommendations. Performed By: #### 4 6126 ####[facility] [address] [place] [address] 56864 Glenn Gudino M.D. [id number] ALT [Catalytic activity/Vol] 23 U/L Normal 0-35 U/L [facility] Comment on above: Order Comment: [facility] has implemented the eGFR calculation approach that does not have a coefficient for race that conforms to the NKF-ASN Task Force Recommendations. Performed By: #### 4 6126 ####[facility] [address] [place] [address] 86751 Glenn Gudino M.D. [id number] Anion gap [Moles/Vol] 14 mmol/L Normal 10-20 [facility] Comment on above: Order Comment: [facility] has implemented the eGFR calculation approach that does not have a coefficient for race that conforms to the NKF-ASN Task Force Recommendations. Performed By: #### 4 6126 ####[facility] [address] [place], [place] [address] Glenn Gudino M.D. [id number] AST [Catalytic activity/Vol] 63 U/L High 0-35 U/L [facility] Comment on above: Order Comment: [facility] has implemented the eGFR calculation approach that does not have a coefficient for race that conforms to the NKF-ASN Task Force Recommendations. Performed By: #### 4 6126 ####[facility] [address] [place], [place] [address] Glenn Gudino M.D. [id number] Bilirubin [Mass/Vol] 0.6 mg/dL Normal 0.0-1.3 [facility] Comment on above: Order Comment: [facility] has implemented the eGFR calculation approach that does not have a coefficient for race that conforms to the NKF-ASN Task Force Recommendations. Performed By: #### 4 6126 ####[facility] [address] [place], [place] [address] Glenn Gudino M.D. [id number] Calcium [Mass/Vol] 8.2 mg/dL Low 8.4-10.2 [facility] Comment on above: Order Comment: [facility] has implemented the eGFR calculation approach that does not have a coefficient for race that conforms to the NKF-ASN Task Force Recommendations. Performed By: #### 4 6126 ####[facility] [address] [place], [place] [address] Glenn Gudino M.D. [id number] Chloride [Moles/Vol] 102 mmol/L Normal 98-108 [facility] Comment on above: Order Comment: [facility] has implemented the eGFR calculation approach that does not have a coefficient for race that conforms to the NKF-ASN Task Force Recommendations. Performed By: #### 4 6126 ####[facility] [address] [place], [place] [address] Glenn Gudino M.D. [id number] Creatinine [Mass/Vol] 0.94 mg/dL Normal 0.60-1.10 [facility] Comment on above: Order Comment: [facility] has implemented the eGFR calculation approach that does not have a coefficient for race that conforms to the NKF-ASN Task Force Recommendations. Performed By: #### 4 6126 ####[facility] [address] [place], [place] [address] Glenn Gudino M.D. [id number] EGFR 69 mL/min/1.73 m2 Normal >=60 [facility] Comment on above: Order Comment: [facility] has implemented the eGFR calculation approach that does not have a coefficient for race that conforms to the NKF-ASN Task Force Recommendations. Result Comment: Joi mated GFR was calculated using the 2020 CKD-EPI creatinine equation. Performed By: #### 4 [id number] ####[facility] [address] [place] [address] 23178 Glenn Gudino M.D. [id number] Glucose [Mass/Vol] 82 mg/dL Normal 65-99 [facility] Comment on above: Order Comment: [facility] has implemented the eGFR calculation approach that does not have a coefficient for race that conforms to the NKF-ASN Task Force Recommendations. Performed By: #### 4 6126 ####[facility] [address] [place] [address] 06548 Glenn Gudino M.D. [id number] HCO3 (Bld) [Moles/Vol] 22 mmol/L Normal 21-32 [facility] Comment on above: Order Comment: [facility] has implemented the eGFR calculation approach that does not have a coefficient for race that conforms to the NKF-ASN Task Force Recommendations. Performed By: #### 4 6126 ####[facility] [address] [place] [address] 32460 Glenn Gudino M.D. [id number] Potassium [Moles/Vol] 3.7 mmol/L Normal 3.5-5.1 [facility] Comment on above: Order Comment: [facility] has implemented the eGFR calculation approach that does not have a coefficient for race that conforms to the NKF-ASN Task Force Recommendations. Performed By: #### 4 6126 ####[facility] [address] [place] [address] 56166 Glenn Gudino M.D. [id number] Protein [Mass/Vol] 6.6 g/dL Normal 6.0-8.0 [facility] Comment on above: Order Comment: [facility] has implemented the eGFR calculation approach that does not have a coefficient for race that conforms to the NKF-ASN Task Force Recommendations. Performed By: #### 4 [id number] ####[facility] [address] [place] [address] 07897 Glenn Gudino M.D. [id number] Sodium [Moles/Vol] 134 mmol/L Low 135-145 [facility] Comment on above: Order Comment: [facility] has implemented the eGFR calculation approach that does not have a coefficient for race that conforms to the NKF-ASN Task Force Recommendations. Performed By: #### 4 6126 ####[facility] [address] [place] [address] 22435 Glenn Gudino M.D. [id number] Urea nitrogen [Mass/Vol] 22 mg/dL Normal 8-25 [facility] Comment on above: Order Comment: [facility] has implemented the eGFR calculation approach that does not have a coefficient for race that conforms to the NKF-ASN Task Force Recommendations. Performed By: #### 4 6126 ####[facility] [address] [place], [place] [address] Glenn Gudino M.D. [id number] Urea nitrogen/Creatinine [Mass ratio] 23.4 mg/mg High 10.0-20.0 [facility] Comment on above: Order Comment: [facility] has implemented the eGFR calculation approach that does not have a coefficient for race that conforms to the NKF-ASN Task Force Recommendations. Performed By: #### 4 6126 ####[facility] [address] [place] [address] Glenn Gudino M.D. [id number] MAGNESIUM LEVELon 10-19-2023 Magnesium [Mass/Vol] 1.9 mg/dL Normal 1.6-2.4 [facility] Comment on above: Performed By: #### 4 6109 ####[facility] [address] [place] [address] Glenn Gudino M.D. [id number] PHOSPHORUSon 10-19-2023 Phosphate [Mass/Vol] 2.4 mg/dL Low 2.8-4.1 [facility] Comment on above: Performed By: #### 4 6299 ####[facility] [address] [place], [place] [address] Glenn Gudino M.D. [id number] POTASSIUM LEVELon 10-19-2023 Potassium [Moles/Vol] 3.8 mmol/L Normal 3.5-5.1 [facility] Comment on above: Performed By: #### 4 6351 ####[facility] [address] [place], [place] [address] Glenn Gudino M.D. [id number] PT/INRon 10-19-2023 INR Coag (PPP) [Relative time] 3.6 {INR} High 0.8-1.1 [facility] Comment on above: Order Comment: Jennifer retana the induction phase of oral anticoagulation, the INR may not reflect the anticoagulation status of the patient. Therapeutic ranges for INR's are:Most clinical situations: INR 2.0-3.0Mechanical Prosthetic Valve: INR 2.5-3.5Critical: INR >5.0 Performed By: #### 4 6391 ####[facility] [address] [place], [place] [address] Glenn Gudino M.D. [id number] PT Coag (PPP) [Time] 36.9 s High 11.8-14.3 [facility] Comment on above: Order Comment: Jennifer retana the induction phase of oral anticoagulation, the INR may not reflect the anticoagulation status of the patient. Therapeutic ranges for INR's are:Most clinical situations: INR 2.0-3.0Mechanical Prosthetic Valve: INR 2.5-3.5Critical: INR >5.0 Performed By: #### 4 6391 ####[facility] [address] [place] [address] Glenn Gudino M.D. [id number] CALCIUM, IONIZEDon CALCIUM IONIZED 4.7 mg/dL Normal 4.5-5.3 [facility] Comment on above: Performed By: #### 4 5190 ####[facility] [address] [place], [place] [address] Glenn Gudino M.D. [id number] CBCon 10-18-2023 AUTO NRBC 0.0 % Normal [facility] Comment on above: Performed By: #### 4 [id number] ####[facility] [address] [place], [place] [address] Glenn Gudino M.D. [id number] AUTO NRBC ABS COUNT 0.00 K/mcL Normal 0.00-0.00 [facility] Comment on above: Performed By: #### 4 [id number] ####[facility] [address] [place], [place] [address] Glenn Gudino M.D. [id number] Erythrocyte distribution width (RBC) [Ratio] 17.6 % High 11.6-14.8 [facility] Comment on above: Performed By: #### 4 [id number] ####[facility] [address] [place], [place] [address] Glenn Gudino M.D. [id number] Hematocrit (Bld) [Volume fraction] 25.4 % Low 36.0-46.0 [facility] Comment on above: Performed By: #### 4 [id number] ####[facility] [address] [place] [address] Glenn Gudino M.D. [id number] Hemoglobin (Bld) [Mass/Vol] 8.0 g/dL Low 12.0-16.0 [facility] Comment on above: Performed By: #### 4 [id number] ####[facility] [address] [place] [address] Glenn Gudino M.D. [id number] MCH (RBC) [Entitic mass] 27.1 pg Normal 26.0-34.0 [facility] Comment on above: Performed By: #### 4 [id number] ####[facility] [address] [place], [place] [address] Glenn Gudino M.D. [id number] MCV (RBC) [Entitic vol] 86.1 fL Normal 80.0-100.0 [facility] Comment on above: Performed By: #### 4 [id number] ####[facility] [address] [place], [place] [address] Glenn Gudino M.D. [id number] MEAN CORPUSCULAR HEMOGLOBIN CONC 31.5 g/dL Normal 31.0-37.0 [facility] Comment on above: Performed By: #### 4 5275 ####[facility] [address] [place], [place] [address] Glenn Gudino M.D. [id number] Platelet mean volume (Bld) [Entitic vol] 9.0 fL Low 9.4-12.4 [facility] Comment on above: Performed By: #### 4 [id number] ####[facility] [address] [place] [address] 78860 Glenn Gudino M.D. [id number] Platelets (Bld) [#/Vol] 463 10*3/uL High 150-400 [facility] Comment on above: Performed By: #### 4 [id number] ####[facility] [address] [place] [address] 73458 Glenn Gudino M.D. [id number] RBC (Bld) [#/Vol] 2.95 10*6/uL Low 4.00-5.20 [facility] Comment on above: Performed By: #### 4 [id number] ####[facility] [address] [place] [address] 86674 Glenn Gudino M.D. [id number] WBC (Bld) [#/Vol] 15.56 10*3/uL High 4.50-11.00 [facility] Comment on above: Performed By: #### 4 [id number] ####[facility] [address] [place] [address] 98723 Glenn Gudino M.D. [id number] COMPREHENSIVE METABOLIC PANE Magdaleno 10-18-2023 Albumin [Mass/Vol] 2.4 g/dL Low 3.2-5.2 [facility] Comment on above: Order Comment: [facility] has implemented the eGFR calculation approach that does not have a coefficient for race that conforms to the NKF-ASN Task Force Recommendations. Performed By: #### 4 [id number] ####[facility] [address] [place] [address] 94504 Glenn Gudino M.D. [id number] ALP [Catalytic activity/Vol] 100 U/L Normal 40-150 [facility] Comment on above: Order Comment: [facility] has implemented the eGFR calculation approach that does not have a coefficient for race that conforms to the NKF-ASN Task Force Recommendations. Performed By: #### 4 [id number] ####[facility] [address] [place] [address] 47517 Glenn Gudino M.D. [id number] ALT [Catalytic activity/Vol] 26 U/L Normal 0-35 U/L [facility] Comment on above: Order Comment: [facility] has implemented the eGFR calculation approach that does not have a coefficient for race that conforms to the NKF-ASN Task Force Recommendations. Performed By: #### 4 [id number] ####[facility] [address] [place] [address] 84973 Glenn Gudino M.D. [id number] Anion gap [Moles/Vol] 13 mmol/L Normal 10-20 [facility] Comment on above: Order Comment: [facility] has implemented the eGFR calculation approach that does not have a coefficient for race that conforms to the NKF-ASN Task Force Recommendations. Performed By: #### 4 [id number] ####[facility] [address] [place] [address] 63840 Glenn Gudino M.D. [id number] AST [Catalytic activity/Vol] 52 U/L High 0-35 U/L [facility] Comment on above: Order Comment: [facility] has implemented the eGFR calculation approach that does not have a coefficient for race that conforms to the NKF-ASN Task Force Recommendations. Performed By: #### 4 6126 ####[facility] [address] [place] [address] 42217 Glenn Gudino M.D. [id number] Bilirubin [Mass/Vol] 0.5 mg/dL Normal 0.0-1.3 [facility] Comment on above: Order Comment: [facility] has implemented the eGFR calculation approach that does not have a coefficient for race that conforms to the NKF-ASN Task Force Recommendations. Performed By: #### 4 6126 ####[facility] [address] [place] [address] 50565 Glenn Gudino M.D. [id number] Calcium [Mass/Vol] 8.3 mg/dL Low 8.4-10.2 [facility] Comment on above: Order Comment: [facility] has implemented the eGFR calculation approach that does not have a coefficient for race that conforms to the NKF-ASN Task Force Recommendations. Performed By: #### 4 [id number] ####[facility] [address] [place] [address] 76436 Glenn Gudino M.D. [id number] Chloride [Moles/Vol] 101 mmol/L Normal 98-108 [facility] Comment on above: Order Comment: [facility] has implemented the eGFR calculation approach that does not have a coefficient for race that conforms to the NKF-ASN Task Force Recommendations. Performed By: #### 4 [id number] ####[facility] [address] [place], [place] [address] Glenn Gudino M.D. [id number] Creatinine [Mass/Vol] 0.93 mg/dL Normal 0.60-1.10 [facility] Comment on above: Order Comment: [facility] has implemented the eGFR calculation approach that does not have a coefficient for race that conforms to the NKF-ASN Task Force Recommendations. Performed By: #### 4 [id number] ####[facility] [address] [place] [address] 58431 Glenn Gudino M.D. [id number] EGFR 70 mL/min/1.73 m2 Normal >=60 [facility] Comment on above: Order Comment: [facility] has implemented the eGFR calculation approach that does not have a coefficient for race that conforms to the NKF-ASN Task Force Recommendations. Result Comment: Joi mated GFR was calculated using the 2020 CKD-EPI creatinine equation. Performed By: #### 4 [id number] ####[facility] [address] [place], [place] [address] Glenn Gudino M.D. [id number] Glucose [Mass/Vol] 96 mg/dL Normal 65-99 [facility] Comment on above: Order Comment: [facility] has implemented the eGFR calculation approach that does not have a coefficient for race that conforms to the NKF-ASN Task Force Recommendations. Performed By: #### 4 [id number] ####[facility] [address] [place] [address] 30228 Glenn Gudino M.D. [id number] HCO3 (Bld) [Moles/Vol] 25 mmol/L Normal 21-32 [facility] Comment on above: Order Comment: [facility] has implemented the eGFR calculation approach that does not have a coefficient for race that conforms to the NKF-ASN Task Force Recommendations. Performed By: #### 4 6126 ####[facility] [address] [place] [address] 55859 Glenn Gudino M.D. [id number] Potassium [Moles/Vol] 4.0 mmol/L Normal 3.5-5.1 [facility] Comment on above: Order Comment: [facility] has implemented the eGFR calculation approach that does not have a coefficient for race that conforms to the NKF-ASN Task Force Recommendations. Performed By: #### 4 6126 ####[facility] [address] [place] [address] 84462 Glenn Gudino M.D. [id number] Protein [Mass/Vol] 6.6 g/dL Normal 6.0-8.0 [facility] Comment on above: Order Comment: [facility] has implemented the eGFR calculation approach that does not have a coefficient for race that conforms to the NKF-ASN Task Force Recommendations. Performed By: #### 4 6126 ####[facility] [address] [place] [address] 72629 Glenn Gudino M.D. [id number] Sodium [Moles/Vol] 135 mmol/L Normal 135-145 [facility] Comment on above: Order Comment: [facility] has implemented the eGFR calculation approach that does not have a coefficient for race that conforms to the NKF-ASN Task Force Recommendations. Performed By: #### 4 6126 ####[facility] [address] [place] [address] 01573 Glenn Gudino M.D. [id number] Urea nitrogen [Mass/Vol] 22 mg/dL Normal 8-25 [facility] Comment on above: Order Comment: [facility] has implemented the eGFR calculation approach that does not have a coefficient for race that conforms to the NKF-ASN Task Force Recommendations. Performed By: #### 4 6126 ####[facility] [address] [place], [place] [address] Glenn Gudino M.D. [id number] Urea nitrogen/Creatinine [Mass ratio] 23.7 mg/mg High 10.0-20.0 [facility] Comment on above: Order Comment: [facility] has implemented the eGFR calculation approach that does not have a coefficient for race that conforms to the NKF-ASN Task Force Recommendations. Performed By: #### 4 6126 ####[facility] [address] [place] [address] 44574 Glenn Gudino M.D. [id number] CONSULTon 10-18-2023 CONSULT Normal [facility] MAGNESIUM LEVELon 10-18-2023 Magnesium [Mass/Vol] 1.9 mg/dL Normal 1.6-2.4 [facility] Comment on above: Performed By: #### 4 6109 ####[facility] [address] [place] [address] 88133 Glenn Gudino M.D. [id number] PHOSPHORUSon 10-18-2023 Phosphate [Mass/Vol] 2.6 mg/dL Low 2.8-4.1 [facility] Comment on above: Performed By: #### 4 6299 ####[facility] [address] [place], [place] [address] Glenn Gudino M.D. [id number] PT/INRon 10-18-2023 INR Coag (PPP) [Relative time] 3.4 {INR} High 0.8-1.1 [facility] Comment on above: Order Comment: Jennifer retana the induction phase of oral anticoagulation, the INR may not reflect the anticoagulation status of the patient. Therapeutic ranges for INR's are:Most clinical situations: INR 2.0-3.0Mechanical Prosthetic Valve: INR 2.5-3.5Critical: INR >5.0 Performed By: #### 4 6391 ####[facility] [address] [place], [place] [address] Glenn Gudino M.D. [id number] PT Coag (PPP) [Time] 35.0 s High 11.8-14.3 [facility] Comment on above: Order Comment: Jennifer retana the induction phase of oral anticoagulation, the INR may not reflect the anticoagulation status of the patient. Therapeutic ranges for INR's are:Most clinical situations: INR 2.0-3.0Mechanical Prosthetic Valve: INR 2.5-3.5Critical: INR >5.0 Performed By: #### 4 6391 ####[facility] [address] [place], [place] [address] Glenn Gudino M.D. [id number] URINALYSISon 10-18-2023 BACTERIA, URINE Few Abnormal None Seen [facility] Comment on above: Order Comment: Micro scopic examination is performed on all urinalysis samples and only positive findings are reported. The test for blood on the chemical analytic portion of urinalysis may also be positive due to hemoglobinuria and myoglobinuria and if red blood cells are present they are quantified by microscopic examination. Performed By: #### 4 [id number] ####[facility] [address] [place], [place] [address] Glenn Gudino M.D. [id number] BILIRUBIN, URINE Negative Normal Negative [facility] Comment on above: Order Comment: Micro scopic examination is performed on all urinalysis samples and only positive findings are reported. The test for blood on the chemical analytic portion of urinalysis may also be positive due to hemoglobinuria and myoglobinuria and if red blood cells are present they are quantified by microscopic examination. Performed By: #### 4 [id number] ####[facility] [address] [place] [address] Glenn Gudino M.D. [id number] BLOOD, URINE Small Abnormal Negative [facility] Comment on above: Order Comment: Micro scopic examination is performed on all urinalysis samples and only positive findings are reported. The test for blood on the chemical analytic portion of urinalysis may also be positive due to hemoglobinuria and myoglobinuria and if red blood cells are present they are quantified by microscopic examination. Performed By: #### 4 [id number] ####[facility] [address] [place] [address] Glenn Gudino M.D. [id number] Clarity (U) Cloudy Abnormal Clear [facility] Comment on above: Order Comment: Micro scopic examination is performed on all urinalysis samples and only positive findings are reported. The test for blood on the chemical analytic portion of urinalysis may also be positive due to hemoglobinuria and myoglobinuria and if red blood cells are present they are quantified by microscopic examination. Performed By: #### 4 [id number] ####[facility] [address] [place] [address] Glenn Gudino M.D. [id number] Color (U) Yellow Normal Colorless, Yellow [facility] Comment on above: Order Comment: Micro scopic examination is performed on all urinalysis samples and only positive findings are reported. The test for blood on the chemical analytic portion of urinalysis may also be positive due to hemoglobinuria and myoglobinuria and if red blood cells are present they are quantified by microscopic examination. Performed By: #### 4 [id number] ####[facility] [address] [place] [address] Glenn Gudino M.D. [id number] Glucose Ql (U) Negative Normal Negative [facility] Comment on above: Order Comment: Micro scopic examination is performed on all urinalysis samples and only positive findings are reported. The test for blood on the chemical analytic portion of urinalysis may also be positive due to hemoglobinuria and myoglobinuria and if red blood cells are present they are quantified by microscopic examination. Performed By: #### 4 [id number] ####[facility] [address] [place] [address] Glenn Gudino M.D. [id number] Ketones Ql (U) Negative Normal Negative [facility] Comment on above: Order Comment: Micro scopic examination is performed on all urinalysis samples and only positive findings are reported. The test for blood on the chemical analytic portion of urinalysis may also be positive due to hemoglobinuria and myoglobinuria and if red blood cells are present they are quantified by microscopic examination. Performed By: #### 4 [id number] ####[facility] [address] [place] [address] Glenn Gudino M.D. [id number] Leukocyte esterase Test strip Ql (U) Large Abnormal Negative [facility] Comment on above: Order Comment: Micro scopic examination is performed on all urinalysis samples and only positive findings are reported. The test for blood on the chemical analytic portion of urinalysis may also be positive due to hemoglobinuria and myoglobinuria and if red blood cells are present they are quantified by microscopic examination. Performed By: #### 4 [id number] ####[facility] [address] [place] [address] Glenn Gudino M.D. [id number] NITRITE, URINE Negative Normal Negative [facility] Comment on above: Order Comment: Micro scopic examination is performed on all urinalysis samples and only positive findings are reported. The test for blood on the chemical analytic portion of urinalysis may also be positive due to hemoglobinuria and myoglobinuria and if red blood cells are present they are quantified by microscopic examination. Performed By: #### 4 [id number] ####[facility] [address] [place] [address] 75435 Glenn Gudino M.D. [id number] pH (U) 6.5 [pH] Normal 5.0-7.0 [facility] Comment on above: Order Comment: Micro scopic examination is performed on all urinalysis samples and only positive findings are reported. The test for blood on the chemical analytic portion of urinalysis may also be positive due to hemoglobinuria and myoglobinuria and if red blood cells are present they are quantified by microscopic examination. Performed By: #### 4 [id number] ####[facility] [address] [place] [address] 17873 Glenn Gudino M.D. [id number] Protein (U) [Mass/Vol] 30 mg/dL Abnormal Negative [facility] Comment on above: Order Comment: [...] compounds. Performed By: #### 4 [id number] ####[facility] [address] [place] [address] 39627 Glenn Gudino M.D. [id number] RBC LM.HPF (Urine sed) [#/Area] 3 /[HPF] Normal 0-3 [facility] Comment on above: Order Comment: Micro scopic examination is performed on all urinalysis samples and only positive findings are reported. The test for blood on the chemical analytic portion of urinalysis may also be positive due to hemoglobinuria and myoglobinuria and if red blood cells are present they are quantified by microscopic examination. Performed By: #### 4 [id number] ####[facility] [address] [place] [address] 80572 Glenn Gudino M.D. [id number] Specific gravity (U) [Rel density] 1.027 High 1.005-1.02 5 [facility] Comment on above: Order Comment: Micro scopic examination is performed on all urinalysis samples and only positive findings are reported. The test for blood on the chemical analytic portion of urinalysis may also be positive due to hemoglobinuria and myoglobinuria and if red blood cells are present they are quantified by microscopic examination. Performed By: #### 4 [id number] ####[facility] [address] [place] [address] Glenn Gudino M.D. [id number] SQUAMOUS EPITHELIAL 7 /hpf High 0-4 [facility] Comment on above: Order Comment: Micro scopic examination is performed on all urinalysis samples and only positive findings are reported. The test for blood on the chemical analytic portion of urinalysis may also be positive due to hemoglobinuria and myoglobinuria and if red blood cells are present they are quantified by microscopic examination. Performed By: #### 4 [id number] ####[facility] [address] [place] [address] Glenn Gudino M.D. [id number] UROBILINOGEN, URINE >=4.0 Abnormal <2.0 [facility] Comment on above: Order Comment: Micro scopic examination is performed on all urinalysis samples and only positive findings are reported. The test for blood on the chemical analytic portion of urinalysis may also be positive due to hemoglobinuria and myoglobinuria and if red blood cells are present they are quantified by microscopic examination. Performed By: #### 4 [id number] ####[facility] [address] [place] [address] Glenn Gudino M.D. [id number] WBC LM.HPF (Urine sed) [#/Area] 39 /[HPF] High 0-5 [facility] Comment on above: Order Comment: Micro scopic examination is performed on all urinalysis samples and only positive findings are reported. The test for blood on the chemical analytic portion of urinalysis may also be positive due to hemoglobinuria and myoglobinuria and if red blood cells are present they are quantified by microscopic examination. Performed By: #### 4 [id number] ####[facility] [address] [place], [place] [address] Glenn Gudino M.D. [id number] URINE AEROBIC CULTUREon 09-27 URINE AEROBIC CULTURE URINE CULTURE < 10,000 CFU/mL of normal urogenital microbiota Normal [facility] Comment on above: Performed By: #### 4 4053 ####[facility] [address] [place] [address] Glenn Gudino M.D. [id number] CALCIUM, IONIZEDon CALCIUM IONIZED 4.4 mg/dL Low 4.5-5.3 [facility] Comment on above: Performed By: #### 4 5190 ####[facility] [address] [place], [place] [address] Glenn Gudino M.D. [id number] CBCon 10-17-2023 AUTO NRBC 0.0 % Normal [facility] Comment on above: Performed By: #### 4 [id number] ####[facility] [address] [place] [address] 97517 Glenn Gudino M.D. [id number] AUTO NRBC ABS COUNT 0.00 K/mcL Normal 0.00-0.00 [facility] Comment on above: Performed By: #### 4 [id number] ####[facility] [address] [place], [place] [address] Glenn Gudino M.D. [id number] Erythrocyte distribution width (RBC) [Ratio] 17.7 % High 11.6-14.8 [facility] Comment on above: Performed By: #### 4 [id number] ####[facility] [address] [place], [place] [address] Glenn Gudino M.D. [id number] Hematocrit (Bld) [Volume fraction] 28.6 % Low 36.0-46.0 [facility] Comment on above: Performed By: #### 4 [id number] ####[facility] [address] [place], [place] [address] Glenn Gudino M.D. [id number] Hemoglobin (Bld) [Mass/Vol] 8.6 g/dL Low 12.0-16.0 [facility] Comment on above: Performed By: #### 4 [id number] ####[facility] [address] [place] [address] Glenn Gudino M.D. [id number] MCH (RBC) [Entitic mass] 27.3 pg Normal 26.0-34.0 [facility] Comment on above: Performed By: #### 4 [id number] ####[facility] [address] [place] [address] Glenn Gudino M.D. [id number] MCV (RBC) [Entitic vol] 90.8 fL Normal 80.0-100.0 [facility] Comment on above: Performed By: #### 4 [id number] ####[facility] [address] [place], [place] [address] Glenn Gudino M.D. [id number] MEAN CORPUSCULAR HEMOGLOBIN CONC 30.1 g/dL Low 31.0-37.0 [facility] Comment on above: Performed By: #### 4 [id number] ####[facility] [address] [place], [place] [address] Glenn Gudino M.D. [id number] Platelet mean volume (Bld) [Entitic vol] 9.6 fL Normal 9.4-12.4 [facility] Comment on above: Performed By: #### 4 [id number] ####[facility] [address] [place], [place] [address] Glenn Gudino M.D. [id number] Platelets (Bld) [#/Vol] 390 10*3/uL Normal 150-400 [facility] Comment on above: Performed By: #### 4 [id number] ####[facility] [address] [place], [place] [address] Glenn Gudino M.D. [id number] RBC (Bld) [#/Vol] 3.15 10*6/uL Low 4.00-5.20 [facility] Comment on above: Performed By: #### 4 [id number] ####[facility] [address] [place], [place] [address] Glenn Gudino M.D. [id number] WBC (Bld) [#/Vol] 14.44 10*3/uL High 4.50-11.00 [facility] Comment on above: Performed By: #### 4 [id number] ####[facility] [address] [place], [place] [address] Glenn Gudino M.D. [id number] HEPATIC FUNCTION PANELon Albumin [Mass/Vol] 2.2 g/dL Low 3.2-5.2 [facility] Comment on above: Performed By: #### 4 5866 ####[facility] [address] [place], [place] [address] Glenn Gudino M.D. [id number] ALP [Catalytic activity/Vol] 105 U/L Normal 40-150 [facility] Comment on above: Performed By: #### 4 5866 ####[facility] [address] [place], [place] [address] Glenn Gudino M.D. [id number] ALT [Catalytic activity/Vol] 23 U/L Normal 0-35 U/L [facility] Comment on above: Performed By: #### 4 5866 ####[facility] [address] [place], [place] [address] Glenn Gudino M.D. [id number] AST [Catalytic activity/Vol] 52 U/L High 0-35 U/L [facility] Comment on above: Performed By: #### 4 5866 ####[facility] [address] [place], [place] [address] Glenn Gudino M.D. [id number] Bilirubin [Mass/Vol] 0.6 mg/dL Normal 0.0-1.3 [facility] Comment on above: Performed By: #### 4 5866 ####[facility] [address] [place] [address] Glenn Gudino M.D. [id number] Bilirubin.indirect [Mass/Vol] 0.2 mg/dL Normal 0.0-0.4 [facility] Comment on above: Performed By: #### 4 5866 ####[facility] [address] [place] [address] Glenn Gudino M.D. [id number] Protein [Mass/Vol] 6.6 g/dL Normal 6.0-8.0 [facility] Comment on above: Performed By: #### 4 5866 ####[facility] [address] [place], [place] [address] Glenn Gudino M.D. [id number] MAGNESIUM LEVELon 10-17-2023 Magnesium [Mass/Vol] 2.0 mg/dL Normal 1.6-2.4 [facility] Comment on above: Performed By: #### 4 6109 ####[facility] [address] [place], [place] [address] Glenn Gudino M.D. [id number] PHOSPHORUSon 10-17-2023 Phosphate [Mass/Vol] 3.0 mg/dL Normal 2.8-4.1 [facility] Comment on above: Performed By: #### 4 6299 ####[facility] [address] [place], [place] [address] Glenn Gudino M.D. [id number] PT/INRon 10-17-2023 INR Coag (PPP) [Relative time] 2.9 {INR} High 0.8-1.1 [facility] Comment on above: Order Comment: Jennifer retana the induction phase of oral anticoagulation, the INR may not reflect the anticoagulation status of the patient. Therapeutic ranges for INR's are:Most clinical situations: INR 2.0-3.0Mechanical Prosthetic Valve: INR 2.5-3.5Critical: INR >5.0 Performed By: #### 4 6391 ####[facility] [address] [place] [address] Glenn Gudino M.D. [id number] PT Coag (PPP) [Time] 30.9 s High 11.8-14.3 [facility] Comment on above: Order Comment: Jennifer retana the induction phase of oral anticoagulation, the INR may not reflect the anticoagulation status of the patient. Therapeutic ranges for INR's are:Most clinical situations: INR 2.0-3.0Mechanical Prosthetic Valve: INR 2.5-3.5Critical: INR >5.0 Performed By: #### 4 6391 ####[facility] [address] [place] [address] Glenn Gudino M.D. [id number] URINALYSISon 10-17-2023 BACTERIA, URINE Many Abnormal None Seen [facility] Comment on above: Order Comment: Micro scopic examination is performed on all urinalysis samples and only positive findings are reported. The test for blood on the chemical analytic portion of urinalysis may also be positive due to hemoglobinuria and myoglobinuria and if red blood cells are present they are quantified by microscopic examination. Performed By: #### 4 6625 ####[facility] [address] [place], [place] [address] Glenn Gudino M.D. [id number] BILIRUBIN, URINE Negative Normal Negative [facility] Comment on above: Order Comment: Micro scopic examination is performed on all urinalysis samples and only positive findings are reported. The test for blood on the chemical analytic portion of urinalysis may also be positive due to hemoglobinuria and myoglobinuria and if red blood cells are present they are quantified by microscopic examination. Performed By: #### 4 [id number] ####[facility] [address] [place], [place] [address] Glenn Gudino M.D. [id number] BLOOD, URINE Small Abnormal Negative [facility] Comment on above: Order Comment: Micro scopic examination is performed on all urinalysis samples and only positive findings are reported. The test for blood on the chemical analytic portion of urinalysis may also be positive due to hemoglobinuria and myoglobinuria and if red blood cells are present they are quantified by microscopic examination. Performed By: #### 4 6625 ####[facility] [address] [place] [address] Glenn Gudino M.D. [id number] Clarity (U) Cloudy Abnormal Clear [facility] Comment on above: Order Comment: Micro scopic examination is performed on all urinalysis samples and only positive findings are reported. The test for blood on the chemical analytic portion of urinalysis may also be positive due to hemoglobinuria and myoglobinuria and if red blood cells are present they are quantified by microscopic examination. Performed By: #### 4 [id number] ####[facility] [address] [place], [place] [address] Glenn Gudino M.D. [id number] Color (U) Yellow Normal Colorless, Yellow [facility] Comment on above: Order Comment: Micro scopic examination is performed on all urinalysis samples and only positive findings are reported. The test for blood on the chemical analytic portion of urinalysis may also be positive due to hemoglobinuria and myoglobinuria and if red blood cells are present they are quantified by microscopic examination. Performed By: #### 4 [id number] ####[facility] [address] [place], [place] [address] Glenn Gudino M.D. [id number] Glucose Ql (U) Negative Normal Negative [facility] Comment on above: Order Comment: Micro scopic examination is performed on all urinalysis samples and only positive findings are reported. The test for blood on the chemical analytic portion of urinalysis may also be positive due to hemoglobinuria and myoglobinuria and if red blood cells are present they are quantified by microscopic examination. Performed By: #### 4 [id number] ####[facility] [address] [place] [address] Glenn Gudino M.D. [id number] Hyaline casts LM Ql (Urine sed) 0-2 Normal 0-2 [facility] Comment on above: Order Comment: Micro scopic examination is performed on all urinalysis samples and only positive findings are reported. The test for blood on the chemical analytic portion of urinalysis may also be positive due to hemoglobinuria and myoglobinuria and if red blood cells are present they are quantified by microscopic examination. Performed By: #### 4 [id number] ####[facility] [address] [place] [address] Glenn Gudino M.D. [id number] Ketones Ql (U) Negative Normal Negative [facility] Comment on above: Order Comment: Micro scopic examination is performed on all urinalysis samples and only positive findings are reported. The test for blood on the chemical analytic portion of urinalysis may also be positive due to hemoglobinuria and myoglobinuria and if red blood cells are present they are quantified by microscopic examination. Performed By: #### 4 [id number] ####[facility] [address] [place], [place] [address] Glenn Gudino M.D. [id number] Leukocyte esterase Test strip Ql (U) Large Abnormal Negative [facility] Comment on above: Order Comment: Micro scopic examination is performed on all urinalysis samples and only positive findings are reported. The test for blood on the chemical analytic portion of urinalysis may also be positive due to hemoglobinuria and myoglobinuria and if red blood cells are present they are quantified by microscopic examination. Performed By: #### 4 [id number] ####[facility] [address] [place], [place] [address] Glenn Gudino M.D. [id number] MUCUS, URINE Rare Normal None Seen, Rare [facility] Comment on above: Order Comment: Micro scopic examination is performed on all urinalysis samples and only positive findings are reported. The test for blood on the chemical analytic portion of urinalysis may also be positive due to hemoglobinuria and myoglobinuria and if red blood cells are present they are quantified by microscopic examination. Performed By: #### 4 [id number] ####[facility] [address] [place] [address] Glenn Gudnio M.D. [id number] NITRITE, URINE Negative Normal Negative [facility] Comment on above: Order Comment: Micro scopic examination is performed on all urinalysis samples and only positive findings are reported. The test for blood on the chemical analytic portion of urinalysis may also be positive due to hemoglobinuria and myoglobinuria and if red blood cells are present they are quantified by microscopic examination. Performed By: #### 4 [id number] ####[facility] [address] [place] [address] Glenn Gudino M.D. [id number] pH (U) 6.0 [pH] Normal 5.0-7.0 [facility] Comment on above: Order Comment: Micro scopic examination is performed on all urinalysis samples and only positive findings are reported. The test for blood on the chemical analytic portion of urinalysis may also be positive due to hemoglobinuria and myoglobinuria and if red blood cells are present they are quantified by microscopic examination. Performed By: #### 4 [id number] ####[facility] [address] [place] [address] Glenn Gudino M.D. [id number] Protein (U) [Mass/Vol] 30 mg/dL Abnormal Negative [facility] Comment on above: Order Comment: [...] including ammonium compounds. Performed By: #### 4 6673 ####[facility] [address] [place] [address] Glenn Gudino M.D. [id number] RBC LM.HPF (Urine sed) [#/Area] 7 /[HPF] High 0-3 [facility] Comment on above: Order Comment: Micro scopic examination is performed on all urinalysis samples and only positive findings are reported. The test for blood on the chemical analytic portion of urinalysis may also be positive due to hemoglobinuria and myoglobinuria and if red blood cells are present they are quantified by microscopic examination. Performed By: #### 4 [id number] ####[facility] [address] [place] [address] Glenn Gudino M.D. [id number] Specific gravity (U) [Rel density] 1.027 High 1.005-1.02 5 [facility] Comment on above: Order Comment: Micro scopic examination is performed on all urinalysis samples and only positive findings are reported. The test for blood on the chemical analytic portion of urinalysis may also be positive due to hemoglobinuria and myoglobinuria and if red blood cells are present they are quantified by microscopic examination. Performed By: #### 4 [id number] ####[facility] [address] [place] [address] Glnen Gudino M.D. [id number] SQUAMOUS EPITHELIAL 6 /hpf High 0-4 [facility] Comment on above: Order Comment: Micro scopic examination is performed on all urinalysis samples and only positive findings are reported. The test for blood on the chemical analytic portion of urinalysis may also be positive due to hemoglobinuria and myoglobinuria and if red blood cells are present they are quantified by microscopic examination. Performed By: #### 4 6631 ####[facility] [address] [place] [address] Glenn Gudino M.D. [id number] UROBILINOGEN, URINE <2.0 Normal <2.0 [facility] Comment on above: Order Comment: Micro scopic examination is performed on all urinalysis samples and only positive findings are reported. The test for blood on the chemical analytic portion of urinalysis may also be positive due to hemoglobinuria and myoglobinuria and if red blood cells are present they are quantified by microscopic examination. Performed By: #### 4 [id number] ####[facility] [address] [place] [address] Glenn Gudino M.D. [id number] WBC LM.HPF (Urine sed) [#/Area] 55 /[HPF] High 0-5 [facility] Comment on above: Order Comment: Micro scopic examination is performed on all urinalysis samples and only positive findings are reported. The test for blood on the chemical analytic portion of urinalysis may also be positive due to hemoglobinuria and myoglobinuria and if red blood cells are present they are quantified by microscopic examination. Performed By: #### 4 [id number] ####[facility] [address] [place] [address] Glenn Gudino M.D. [id number] BASIC METABOLIC PANELon 05-2 Anion gap [Moles/Vol] 17 mmol/L Normal 10-20 [facility] Comment on above: Order Comment: [facility] has implemented the eGFR calculation approach that does not have a coefficient for race that conforms to the NKF-ASN Task Force Recommendations. Performed By: #### 4 6124 ####[facility] [address] [place] [address] Glenn Gudino M.D. [id number] Calcium [Mass/Vol] 7.8 mg/dL Low 8.4-10.2 [facility] Comment on above: Order Comment: [facility] has implemented the eGFR calculation approach that does not have a coefficient for race that conforms to the NKF-ASN Task Force Recommendations. Performed By: #### 4 6124 ####[facility] [address] [place] [address] Glenn Gudino M.D. [id number] Chloride [Moles/Vol] 100 mmol/L Normal 98-108 [facility] Comment on above: Order Comment: [facility] has implemented the eGFR calculation approach that does not have a coefficient for race that conforms to the NKF-ASN Task Force Recommendations. Performed By: #### 4 6124 ####[facility] [address] [place] [address] Glenn Gudino M.D. [id number] Creatinine [Mass/Vol] 1.04 mg/dL Normal 0.60-1.10 [facility] Comment on above: Order Comment: [facility] has implemented the eGFR calculation approach that does not have a coefficient for race that conforms to the NKF-ASN Task Force Recommendations. Performed By: #### 4 6124 ####[facility] [address] [place] [address] Glenn Gudino M.D. [id number] EGFR 61 mL/min/1.73 m2 Normal >=60 [facility] Comment on above: Order Comment: [facility] has implemented the eGFR calculation approach that does not have a coefficient for race that conforms to the NKF-ASN Task Force Recommendations. Result Comment: Joi mated GFR was calculated using the 2020 CKD-EPI creatinine equation. Performed By: #### 4 6124 ####[facility] [address] [place] [address] Glenn Gudino M.D. [id number] Glucose [Mass/Vol] 73 mg/dL Normal 65-99 [facility] Comment on above: Order Comment: [facility] has implemented the eGFR calculation approach that does not have a coefficient for race that conforms to the NKF-ASN Task Force Recommendations. Performed By: #### 4 6124 ####[facility] [address] [place], [place] [address] Glenn Gudino M.D. [id number] HCO3 (Bld) [Moles/Vol] 20 mmol/L Low 21-32 [facility] Comment on above: Order Comment: [facility] has implemented the eGFR calculation approach that does not have a coefficient for race that conforms to the NKF-ASN Task Force Recommendations. Performed By: #### 4 6124 ####[facility] [address] [place], [place] [address] Glenn Gudino M.D. [id number] Potassium [Moles/Vol] 3.4 mmol/L Low 3.5-5.1 [facility] Comment on above: Order Comment: [facility] has implemented the eGFR calculation approach that does not have a coefficient for race that conforms to the NKF-ASN Task Force Recommendations. Performed By: #### 4 6124 ####[facility] [address] [place], [place] [address] Glenn Gudino M.D. [id number] Sodium [Moles/Vol] 134 mmol/L Low 135-145 [facility] Comment on above: Order Comment: [facility] has implemented the eGFR calculation approach that does not have a coefficient for race that conforms to the NKF-ASN Task Force Recommendations. Performed By: #### 4 6124 ####[facility] [address] [place] [address] Glenn Gudino M.D. [id number] Urea nitrogen [Mass/Vol] 21 mg/dL Normal 8-25 [facility] Comment on above: Order Comment: [facility] has implemented the eGFR calculation approach that does not have a coefficient for race that conforms to the NKF-ASN Task Force Recommendations. Performed By: #### 4 6124 ####[facility] [address] [place] [address] Glenn Gudino M.D. [id number] Urea nitrogen/Creatinine [Mass ratio] 20.2 mg/mg High 10.0-20.0 [facility] Comment on above: Order Comment: [facility] has implemented the eGFR calculation approach that does not have a coefficient for race that conforms to the NKF-ASN Task Force Recommendations. Performed By: #### 4 6124 ####[facility] [address] [place] [address] Glenn Gudino M.D. [id number] CALCIUM, IONIZEDon CALCIUM IONIZED 4.4 mg/dL Low 4.5-5.3 [facility] Comment on above: Performed By: #### 4 5190 ####[facility] [address] [place] [address] Glenn Gudino M.D. [id number] CBCon 10-16-2023 AUTO NRBC 0.0 % Normal [facility] Comment on above: Performed By: #### 4 [id number] ####[facility] [address] [place] [address] Glenn Gudino M.D. [id number] AUTO NRBC ABS COUNT 0.00 K/mcL Normal 0.00-0.00 [facility] Comment on above: Performed By: #### 4 [id number] ####[facility] [address] [place], [place] [address] Glenn Gudino M.D. [id number] Erythrocyte distribution width (RBC) [Ratio] 17.5 % High 11.6-14.8 [facility] Comment on above: Performed By: #### 4 [id number] ####[facility] [address] [place], [place] [address] Glenn Gudino M.D. [id number] Hematocrit (Bld) [Volume fraction] 25.7 % Low 36.0-46.0 [facility] Comment on above: Performed By: #### 4 [id number] ####[facility] [address] [place], [place] [address] Glenn Gudino M.D. [id number] Hemoglobin (Bld) [Mass/Vol] 8.1 g/dL Low 12.0-16.0 [facility] Comment on above: Performed By: #### 4 [id number] ####[facility] [address] [place] [address] Glenn Gudino M.D. [id number] MCH (RBC) [Entitic mass] 27.7 pg Normal 26.0-34.0 [facility] Comment on above: Performed By: #### 4 [id number] ####[facility] [address] [place] [address] Glenn Gudino M.D. [id number] MCV (RBC) [Entitic vol] 88.0 fL Normal 80.0-100.0 [facility] Comment on above: Performed By: #### 4 [id number] ####[facility] [address] [place] [address] Glenn Gudino M.D. [id number] MEAN CORPUSCULAR HEMOGLOBIN CONC 31.5 g/dL Normal 31.0-37.0 [facility] Comment on above: Performed By: #### 4 [id number] ####[facility] [address] [place], [place] [address]Karma Gudino M.D. [id number] Platelet mean volume (Bld) [Entitic vol] 9.2 fL Low 9.4-12.4 [facility] Comment on above: Performed By: #### 4 [id number] ####[facility] [address] [place], [place] [address] Glenn Gudino M.D. [id number] Platelets (Bld) [#/Vol] 441 10*3/uL High 150-400 [facility] Comment on above: Performed By: #### 4 [id number] ####[facility] [address] [place], [place] [address]Vivian LozaD. [id number] RBC (Bld) [#/Vol] 2.92 10*6/uL Low 4.00-5.20 [facility] Comment on above: Performed By: #### 4 [id number] ####[facility] [address] [place], [place] [address] Glenn Gudino M.D. [id number] WBC (Bld) [#/Vol] 13.50 10*3/uL High 4.50-11.00 [facility] Comment on above: Performed By: #### 4 [id number] ####[facility] [address] [place], [place] [address] Glenn Gudino M.D. [id number] HEPATIC FUNCTION PANELon Albumin [Mass/Vol] 2.1 g/dL Low 3.2-5.2 [facility] Comment on above: Performed By: #### 4 5866 ####[facility] [address] [place], [place] [address] Glenn Gudino M.D. [id number] ALP [Catalytic activity/Vol] 104 U/L Normal 40-150 [facility] Comment on above: Performed By: #### 4 5866 ####[facility] [address] [place], [place] [address] Glenn Gudino M.D. [id number] ALT [Catalytic activity/Vol] 22 U/L Normal 0-35 U/L [facility] Comment on above: Performed By: #### 4 5866 ####[facility] [address] [place], [place] [address] Glenn Gudino M.D. [id number] AST [Catalytic activity/Vol] 51 U/L High 0-35 U/L [facility] Comment on above: Performed By: #### 4 5866 ####[facility] [address] [place], [place] [address] Glenn Gudino M.D. [id number] Bilirubin [Mass/Vol] 0.5 mg/dL Normal 0.0-1.3 [facility] Comment on above: Performed By: #### 4 5866 ####[facility] [address] [place], [place] [address] Glenn Gudino M.D. [id number] Bilirubin.indirect [Mass/Vol] 0.2 mg/dL Normal 0.0-0.4 [facility] Comment on above: Performed By: #### 4 5866 ####[facility] [address] [place], [place] [address] Glenn Gudino M.D. [id number] Protein [Mass/Vol] 6.3 g/dL Normal 6.0-8.0 [facility] Comment on above: Performed By: #### 4 [id number] ####[facility] [address] [place], [place] [address] Glenn Gudino M.D. [id number] MAGNESIUM LEVELon 10-16-2023 Magnesium [Mass/Vol] 1.9 mg/dL Normal 1.6-2.4 [facility] Comment on above: Performed By: #### 4 6109 ####[facility] [address] [place], [place] [address] Glenn Gudino M.D. [id number] PHOSPHORUSon 10-16-2023 Phosphate [Mass/Vol] 2.4 mg/dL Low 2.8-4.1 [facility] Comment on above: Performed By: #### 4 6299 ####[facility] [address] [place], [place] [address] Glenn Gudino M.D. [id number] PT/INRon 10-16-2023 INR Coag (PPP) [Relative time] 3.1 {INR} High 0.8-1.1 [facility] Comment on above: Order Comment: Jennifer retana the induction phase of oral anticoagulation, the INR may not reflect the anticoagulation status of the patient. Therapeutic ranges for INR's are:Most clinical situations: INR 2.0-3.0Mechanical Prosthetic Valve: INR 2.5-3.5Critical: INR >5.0 Performed By: #### 4 6391 ####[facility] [address] [place] [address] Glenn Gudino M.D. [id number] PT Coag (PPP) [Time] 32.2 s High 11.8-14.3 [facility] Comment on above: Order Comment: Jennifer retana the induction phase of oral anticoagulation, the INR may not reflect the anticoagulation status of the patient. Therapeutic ranges for INR's are:Most clinical situations: INR 2.0-3.0Mechanical Prosthetic Valve: INR 2.5-3.5Critical: INR >5.0 Performed By: #### 4 6391 ####[facility] [address] [place] [address] Glenn Gudino M.D. [id number] CALCIUM, IONIZEDon CALCIUM IONIZED 4.3 mg/dL Low 4.5-5.3 [facility] Comment on above: Performed By: #### 4 5190 ####[facility] [address] [place], [place] [address] Glenn Gudino M.D. [id number] CBCon 10-15-2023 AUTO NRBC 0.0 % Normal [facility] Comment on above: Performed By: #### 4 [id number] ####[facility] [address] [place], [place] [address] Glenn Gudino M.D. [id number] AUTO NRBC ABS COUNT 0.00 K/mcL Normal 0.00-0.00 [facility] Comment on above: Performed By: #### 4 [id number] ####[facility] [address] [place], [place] [address] Glenn Gudino M.D. [id number] Erythrocyte distribution width (RBC) [Ratio] 17.7 % High 11.6-14.8 [facility] Comment on above: Performed By: #### 4 [id number] ####[facility] [address] [place] [address] Glenn Gudino M.D. [id number] Hematocrit (Bld) [Volume fraction] 28.4 % Low 36.0-46.0 [facility] Comment on above: Performed By: #### 4 [id number] ####[facility] [address] [place] [address] Glenn Gudino M.D. [id number] Hemoglobin (Bld) [Mass/Vol] 8.6 g/dL Low 12.0-16.0 [facility] Comment on above: Performed By: #### 4 [id number] ####[facility] [address] [place] [address] Glenn Gudino M.D. [id number] MCH (RBC) [Entitic mass] 27.5 pg Normal 26.0-34.0 [facility] Comment on above: Performed By: #### 4 [id number] ####[facility] [address] [place] [address] Glenn Gudino M.D. [id number] MCV (RBC) [Entitic vol] 90.7 fL Normal 80.0-100.0 [facility] Comment on above: Performed By: #### 4 [id number] ####[facility] [address] [place] [address] Glenn Gudino M.D. [id number] MEAN CORPUSCULAR HEMOGLOBIN CONC 30.3 g/dL Low 31.0-37.0 [facility] Comment on above: Performed By: #### 4 [id number] ####[facility] [address] [place], [place] [address] Glenn Gudino M.D. [id number] Platelet mean volume (Bld) [Entitic vol] 9.8 fL Normal 9.4-12.4 [facility] Comment on above: Performed By: #### 4 [id number] ####[facility] [address] [place] [address] Glenn Gudino M.D. [id number] Platelets (Bld) [#/Vol] 378 10*3/uL Normal 150-400 [facility] Comment on above: Performed By: #### 4 [id number] ####[facility] [address] [place] [address] Glenn Gudino M.D. [id number] RBC (Bld) [#/Vol] 3.13 10*6/uL Low 4.00-5.20 [facility] Comment on above: Performed By: #### 4 [id number] ####[facility] [address] [place], [place] [address] Glenn Gudino M.D. [id number] WBC (Bld) [#/Vol] 12.92 10*3/uL High 4.50-11.00 [facility] Comment on above: Performed By: #### 4 [id number] ####[facility] [address] [place] [address]Karma Gudino M.D. [id number] HEPATIC FUNCTION PANELon Albumin [Mass/Vol] 2.2 g/dL Low 3.2-5.2 [facility] Comment on above: Performed By: #### 4 [id number] ####[facility] [address] [place] [address]Karma Gudino M.D. [id number] ALP [Catalytic activity/Vol] 100 U/L Normal 40-150 [facility] Comment on above: Performed By: #### 4 [id number] ####[facility] [address] [place], [place] [address]Karma Gudino M.D. [id number] ALT [Catalytic activity/Vol] 28 U/L Normal 0-35 U/L [facility] Comment on above: Performed By: #### 4 [id number] ####[facility] [address] [place] [address] Glenn Gudino M.D. [id number] AST [Catalytic activity/Vol] 52 U/L High 0-35 U/L [facility] Comment on above: Performed By: #### 4 [id number] ####[facility] [address] [place] [address] Glenn Gudino M.D. [id number] Bilirubin [Mass/Vol] 0.5 mg/dL Normal 0.0-1.3 [facility] Comment on above: Performed By: #### 4 [id number] ####[facility] [address] [place] [address] Glenn Gudino M.D. [id number] Bilirubin.indirect [Mass/Vol] 0.2 mg/dL Normal 0.0-0.4 [facility] Comment on above: Performed By: #### 4 [id number] ####[facility] [address] [place], [place] [address] Glenn Gudino M.D. [id number] Protein [Mass/Vol] 6.1 g/dL Normal 6.0-8.0 [facility] Comment on above: Performed By: #### 4 [id number] ####[facility] [address] [place], [place] [address] Glenn Gudino M.D. [id number] MAGNESIUM LEVELon 10-15-2023 Magnesium [Mass/Vol] 1.8 mg/dL Normal 1.6-2.4 [facility] Comment on above: Performed By: #### 4 6109 ####[facility] [address] [place], [place] [address] Glenn Gudino M.D. [id number] PHOSPHORUSon 10-15-2023 Phosphate [Mass/Vol] 2.8 mg/dL Normal 2.8-4.1 [facility] Comment on above: Performed By: #### 4 6299 ####[facility] [address] [place], [place] [address] Glenn Gudino M.D. [id number] PT/INRon 10-15-2023 INR Coag (PPP) [Relative time] 2.9 {INR} High 0.8-1.1 [facility] Comment on above: Order Comment: Durin g the induction phase of oral anticoagulation, the INR may not reflect the anticoagulation status of the patient. Therapeutic ranges for INR's are:Most clinical situations: INR 2.0-3.0Mechanical Prosthetic Valve: INR 2.5-3.5Critical: INR >5.0 Performed By: #### 4 6391 ####[facility] [address] [place], [place] [address] Glenn Gudino M.D. [id number] PT Coag (PPP) [Time] 30.5 s High 11.8-14.3 [facility] Comment on above: Order Comment: Durin g the induction phase of oral anticoagulation, the INR may not reflect the anticoagulation status of the patient. Therapeutic ranges for INR's are:Most clinical situations: INR 2.0-3.0Mechanical Prosthetic Valve: INR 2.5-3.5Critical: INR >5.0 Performed By: #### 4 6391 ####[facility] [address] [place], [place] [address] Glenn Gudino M.D. [id number] CALCIUM, IONIZEDon CALCIUM IONIZED 4.4 mg/dL Low 4.5-5.3 [facility] Comment on above: Performed By: #### 4 5190 ####[facility] [address] [place], [place] [address] Glenn Gudino M.D. [id number] CBCon 10-14-2023 AUTO NRBC 0.0 % Normal [facility] Comment on above: Performed By: #### 4 [id number] ####[facility] [address] [place], [place] [address] Glenn Gudino M.D. [id number] AUTO NRBC ABS COUNT 0.00 K/mcL Normal 0.00-0.00 [facility] Comment on above: Performed By: #### 4 [id number] ####[facility] [address] [place], [place] [address] Glenn Gudino M.D. [id number] Erythrocyte distribution width (RBC) [Ratio] 17.5 % High 11.6-14.8 [facility] Comment on above: Performed By: #### 4 [id number] ####[facility] [address] [place] [address] Glenn Gudino M.D. [id number] Hematocrit (Bld) [Volume fraction] 26.1 % Low 36.0-46.0 [facility] Comment on above: Performed By: #### 4 5218 ####[facility] [address] [place], [place] [address] Glenn Gudino M.D. [id number] Hemoglobin (Bld) [Mass/Vol] 8.5 g/dL Low 12.0-16.0 [facility] Comment on above: Performed By: #### 4 5218 ####[facility] [address] [place], [place] [address] Glenn Gudino M.D. [id number] MCH (RBC) [Entitic mass] 28.0 pg Normal 26.0-34.0 [facility] Comment on above: Performed By: #### 4 5218 ####[facility] [address] [place], [place] [address] Glenn Gudino M.D. [id number] MCV (RBC) [Entitic vol] 85.9 fL Normal 80.0-100.0 [facility] Comment on above: Performed By: #### 4 5218 ####[facility] [address] [place] [address] Glenn Gudino M.D. [id number] MEAN CORPUSCULAR HEMOGLOBIN CONC 32.6 g/dL Normal 31.0-37.0 [facility] Comment on above: Performed By: #### 4 5218 ####[facility] [address] [place] [address] Glenn Gudino M.D. [id number] Platelet mean volume (Bld) [Entitic vol] 9.3 fL Low 9.4-12.4 [facility] Comment on above: Performed By: #### 4 [id number] ####[facility] [address] [place], [place] [address] Glenn Gudino M.D. [id number] Platelets (Bld) [#/Vol] 365 10*3/uL Normal 150-400 [facility] Comment on above: Performed By: #### 4 5218 ####[facility] [address] [place], [place] [address] Glenn Gudino M.D. [id number] RBC (Bld) [#/Vol] 3.04 10*6/uL Low 4.00-5.20 [facility] Comment on above: Performed By: #### 4 5218 ####[facility] [address] [place], [place] [address] Glenn Gudino M.D. [id number] WBC (Bld) [#/Vol] 15.87 10*3/uL High 4.50-11.00 [facility] Comment on above: Performed By: #### 4 5218 ####[facility] [address] [place] [address] Glenn Gudino M.D. [id number] CLOSTRIDIOIDES DIFFICILE MENG Soriano 10-14-2023 CLOSTRIDIOIDES DIFFICILE TESTING Not detected Normal Not Detected [facility] Comment on above: Performed By: #### 4 8543 ####[facility] [address] [place], [place] [address] Glenn Gudino M.D. [id number] HEPATIC FUNCTION PANELon Albumin [Mass/Vol] 2.4 g/dL Low 3.2-5.2 [facility] Comment on above: Performed By: #### 4 5866 ####[facility] [address] [place] [address] Glenn Gudino M.D. [id number] ALP [Catalytic activity/Vol] 97 U/L Normal 40-150 [facility] Comment on above: Performed By: #### 4 5866 ####[facility] [address] [place] [address] Glenn Gudino M.D. [id number] ALT [Catalytic activity/Vol] 31 U/L Normal 0-35 U/L [facility] Comment on above: Performed By: #### 4 5866 ####[facility] [address] [place], [place] [address] Glenn Gudino M.D. [id number] AST [Catalytic activity/Vol] 56 U/L High 0-35 U/L [facility] Comment on above: Performed By: #### 4 5808 ####[facility] [address] [place], [place] [address] Glenn Gudino M.D. [id number] Bilirubin [Mass/Vol] 0.6 mg/dL Normal 0.0-1.3 [facility] Comment on above: Performed By: #### 4 5899 ####[facility] [address] [place], [place] [address] Glenn Gudino M.D. [id number] Bilirubin.indirect [Mass/Vol] 0.3 mg/dL Normal 0.0-0.4 [facility] Comment on above: Performed By: #### 4 5866 ####[facility] [address] [place], [place] [address] Glenn Gudino M.D. [id number] Protein [Mass/Vol] 6.3 g/dL Normal 6.0-8.0 [facility] Comment on above: Performed By: #### 4 5866 ####[facility] [address] [place] [address] Glenn Gudino M.D. [id number] MAGNESIUM LEVELon 10-14-2023 Magnesium [Mass/Vol] 1.9 mg/dL Normal 1.6-2.4 [facility] Comment on above: Performed By: #### 4 6109 ####[facility] [address] [place] [address] Glenn Gudino M.D. [id number] PHOSPHORUSon 10-14-2023 Phosphate [Mass/Vol] 3.0 mg/dL Normal 2.8-4.1 [facility] Comment on above: Performed By: #### 4 6299 ####[facility] [address] [place] [address] Glenn Gudino M.D. [id number] POC GLUCOSE - [facility] 024 Glucose [Mass/Vol] 105 mg/dL High 65-99 [facility] Comment on above: Performed By: #### 4 0477 ####[facility] [address] [place] [address] [id number] RMHPOC Glucose [Mass/Vol] 98 mg/dL Normal 65-99 [facility] Comment on above: Performed By: #### 4 2907 ####[facility] [address] [place] [address] [id number] [facility]OC Glucose [Mass/Vol] 82 mg/dL Normal 65-99 [facility] Comment on above: Performed By: #### 4 8895 ####[facility] [address] [place] [address] [id number] [facility] Glucose [Mass/Vol] 93 mg/dL Normal 65-99 [facility] Comment on above: Performed By: #### 4 6932 ####[facility] [address] [place] [address] [id number] [facility] Glucose [Mass/Vol] 93 mg/dL Normal 65-99 [facility] Comment on above: Performed By: #### 4 6932 ####[facility] [address] [place] [address] [id number] [facility] PT/INRon 10-14-2023 INR Coag (PPP) [Relative time] 2.6 {INR} High 0.8-1.1 [facility] Comment on above: Order Comment: Jennifer retana the induction phase of oral anticoagulation, the INR may not reflect the anticoagulation status of the patient. Therapeutic ranges for INR's are:Most clinical situations: INR 2.0-3.0Mechanical Prosthetic Valve: INR 2.5-3.5Critical: INR >5.0 Performed By: #### 4 6391 ####[facility] [address] [place] [address] Glenn Gudino M.D. [id number] PT Coag (PPP) [Time] 28.0 s High 11.8-14.3 [facility] Comment on above: Order Comment: Jennifer g the induction phase of oral anticoagulation, the INR may not reflect the anticoagulation status of the patient. Therapeutic ranges for INR's are:Most clinical situations: INR 2.0-3.0Mechanical Prosthetic Valve: INR 2.5-3.5Critical: INR >5.0 Performed By: #### 4 6391 ####[facility] [address] [place] [address] Glenn Gudino M.D. [id number] BASIC METABOLIC PANELon 09-26 Anion gap [Moles/Vol] 15 mmol/L Normal 10-20 [facility] Comment on above: Order Comment: [facility] has implemented the eGFR calculation approach that does not have a coefficient for race that conforms to the NKF-ASN Task Force Recommendations. Performed By: #### 4 6124 ####[facility] [address] [place] [address] Glenn Gudino M.D. [id number] Calcium [Mass/Vol] 7.8 mg/dL Low 8.4-10.2 [facility] Comment on above: Order Comment: [facility] has implemented the eGFR calculation approach that does not have a coefficient for race that conforms to the NKF-ASN Task Force Recommendations. Performed By: #### 4 6124 ####[facility] [address] [place] [address] Glenn Gudino M.D. [id number] Chloride [Moles/Vol] 98 mmol/L Normal 98-108 [facility] Comment on above: Order Comment: [facility] has implemented the eGFR calculation approach that does not have a coefficient for race that conforms to the NKF-ASN Task Force Recommendations. Performed By: #### 4 6124 ####[facility] [address] [place] [address] Glenn Gudino M.D. [id number] Creatinine [Mass/Vol] 1.14 mg/dL Normal 0.60-1.10 [facility] Comment on above: Order Comment: [facility] has implemented the eGFR calculation approach that does not have a coefficient for race that conforms to the NKF-ASN Task Force Recommendations. Performed By: #### 4 6124 ####[facility] [address] [place] [address] Glenn Gudino M.D. [id number] EGFR 55 mL/min/1.73 m2 Low >=60 [facility] Comment on above: Order Comment: [facility] has implemented the eGFR calculation approach that does not have a coefficient for race that conforms to the NKF-ASN Task Force Recommendations. Result Comment: Joi mated GFR was calculated using the 2020 CKD-EPI creatinine equation. Performed By: #### 4 6124 ####[facility] [address] [place] [address] Glenn Gudino M.D. [id number] Glucose [Mass/Vol] 83 mg/dL Normal 65-99 [facility] Comment on above: Order Comment: [facility] has implemented the eGFR calculation approach that does not have a coefficient for race that conforms to the NKF-ASN Task Force Recommendations. Performed By: #### 4 6124 ####[facility] [address] [place] [address] Glenn Gudino M.D. [id number] HCO3 (Bld) [Moles/Vol] 25 mmol/L Normal 21-32 [facility] Comment on above: Order Comment: [facility] has implemented the eGFR calculation approach that does not have a coefficient for race that conforms to the NKF-ASN Task Force Recommendations. Performed By: #### 4 6124 ####[facility] [address] [place] [address] Glenn Gudino M.D. [id number] Potassium [Moles/Vol] 3.9 mmol/L Normal 3.5-5.1 [facility] Comment on above: Order Comment: [facility] has implemented the eGFR calculation approach that does not have a coefficient for race that conforms to the NKF-ASN Task Force Recommendations. Performed By: #### 4 6124 ####[facility] [address] [place] [address]99[address] Glenn Gudino M.D. [id number] Sodium [Moles/Vol] 134 mmol/L Low 135-145 [facility] Comment on above: Order Comment: [facility] has implemented the eGFR calculation approach that does not have a coefficient for race that conforms to the NKF-ASN Task Force Recommendations. Performed By: #### 4 6118 ####[facility] [address] [place] [address] Glenn Gudino M.D. [id number] Urea nitrogen [Mass/Vol] 28 mg/dL High 8-25 [facility] Comment on above: Order Comment: [facility] has implemented the eGFR calculation approach that does not have a coefficient for race that conforms to the NKF-ASN Task Force Recommendations. Performed By: #### 4 6124 ####[facility] [address] [place] [address] Glenn Gudino M.D. [id number] Urea nitrogen/Creatinine [Mass ratio] 24.6 mg/mg High 10.0-20.0 [facility] Comment on above: Order Comment: [facility] has implemented the eGFR calculation approach that does not have a coefficient for race that conforms to the NKF-ASN Task Force Recommendations. Performed By: #### 4 6124 ####[facility] [address] [place], [place] [address] Glenn Gudino M.D. [id number] CALCIUM, IONIZEDon CALCIUM IONIZED 4.3 mg/dL Low 4.5-5.3 [facility] Comment on above: Performed By: #### 4 5190 ####[facility] [address] [place] [address]7568 Glenn Gudino M.D. [id number] CBCon 10-13-2023 AUTO NRBC 0.0 % Normal [facility] Comment on above: Performed By: #### 4 5218 ####[facility] [address] [place], [place] [address] Glenn Gudino M.D. [id number] AUTO NRBC ABS COUNT 0.00 K/mcL Normal 0.00-0.00 [facility] Comment on above: Performed By: #### 4 5218 ####[facility] [address] [place], [place] [address] Glenn Gudino M.D. [id number] Erythrocyte distribution width (RBC) [Ratio] 17.2 % High 11.6-14.8 [facility] Comment on above: Performed By: #### 4 5218 ####[facility] [address] [place], [place] [address] Glenn Gudino M.D. [id number] Hematocrit (Bld) [Volume fraction] 26.4 % Low 36.0-46.0 [facility] Comment on above: Performed By: #### 4 5218 ####[facility] [address] [place] [address] Glenn Gudino M.D. [id number] Hemoglobin (Bld) [Mass/Vol] 8.7 g/dL Low 12.0-16.0 [facility] Comment on above: Performed By: #### 4 5218 ####[facility] [address] [place] [address] Glenn Gudino M.D. [id number] MCH (RBC) [Entitic mass] 27.9 pg Normal 26.0-34.0 [facility] Comment on above: Performed By: #### 4 5218 ####[facility] [address] [place] [address] Glenn Gudino M.D. [id number] MCV (RBC) [Entitic vol] 84.6 fL Normal 80.0-100.0 [facility] Comment on above: Performed By: #### 4 5218 ####[facility] [address] [place], [place] [address] Glenn Gudino M.D. [id number] MEAN CORPUSCULAR HEMOGLOBIN CONC 33.0 g/dL Normal 31.0-37.0 [facility] Comment on above: Performed By: #### 4 5275 ####[facility] [address] [place], [place] [address]Karma Gudino M.D. [id number] Platelet mean volume (Bld) [Entitic vol] 9.6 fL Normal 9.4-12.4 [facility] Comment on above: Performed By: #### 4 5218 ####[facility] [address] [place] [address]44 Glenn Gudino M.D. [id number] Platelets (Bld) [#/Vol] 362 10*3/uL Normal 150-400 [facility] Comment on above: Performed By: #### 4 5218 ####[facility] [address] [place] [address] 70893 Glenn Gudino M.D. [id number] RBC (Bld) [#/Vol] 3.12 10*6/uL Low 4.00-5.20 [facility] Comment on above: Performed By: #### 4 5218 ####[facility] [address] [place], [place] [address] Glenn Gudino M.D. [id number] WBC (Bld) [#/Vol] 15.99 10*3/uL High 4.50-11.00 [facility] Comment on above: Performed By: #### 4 5218 ####[facility] [address] [place] [address] Glenn Gudino M.D. [id number] CORTISOL, Víctor 10-13-2023 CORTISOL - AM 24.1 mcg/dL Normal 5.0-25.0 [facility] Comment on above: Order Comment: Needs to be drawn at 8 am Performed By: #### 4 6853 ####[facility] [address] [place] [address] 89890 Glenn Gudino M.D. [id number] HEPATIC FUNCTION PANELon Albumin [Mass/Vol] 2.4 g/dL Low 3.2-5.2 [facility] Comment on above: Performed By: #### 4 5866 ####[facility] [address] [place] [address] Glenn Gudino M.D. [id number] ALP [Catalytic activity/Vol] 85 U/L Normal 40-150 [facility] Comment on above: Performed By: #### 4 5866 ####[facility] [address] [place] [address] Glenn Gudino M.D. [id number] ALT [Catalytic activity/Vol] 27 U/L Normal 0-35 U/L [facility] Comment on above: Performed By: #### 4 5866 ####[facility] [address] [place] [address] Glenn Gudino M.D. [id number] AST [Catalytic activity/Vol] 49 U/L High 0-35 U/L [facility] Comment on above: Performed By: #### 4 5866 ####[facility] [address] [place], [place] [address] Glenn Gudino M.D. [id number] Bilirubin [Mass/Vol] 0.5 mg/dL Normal 0.0-1.3 [facility] Comment on above: Performed By: #### 4 5866 ####[facility] [address] [place], [place] [address] Glenn Gudino M.D. [id number] Bilirubin.indirect [Mass/Vol] 0.2 mg/dL Normal 0.0-0.4 [facility] Comment on above: Performed By: #### 4 5866 ####[facility] [address] [place] [address] Glenn Gduino M.D. [id number] Protein [Mass/Vol] 6.4 g/dL Normal 6.0-8.0 [facility] Comment on above: Performed By: #### 4 5864 ####[facility] [address] [place] [address] Glenn Gudino M.D. [id number] MAGNESIUM LEVELon 10-13-2023 Magnesium [Mass/Vol] 1.8 mg/dL Normal 1.6-2.4 [facility] Comment on above: Performed By: #### 4 6109 ####[facility] [address] [place] [address] Glenn Gudino M.D. [id number] PHOSPHORUSon 10-13-2023 Phosphate [Mass/Vol] 2.3 mg/dL Low 2.8-4.1 [facility] Comment on above: Performed By: #### 4 6299 ####[facility] [address] [place] [address] Glenn Gudino M.D. [id number] POC GLUCOSE - [facility] 024 Glucose [Mass/Vol] 92 mg/dL Normal 65-99 [facility] Comment on above: Performed By: #### 4 6916 ####[facility] [address] [place] [address] [id number] [facility] Glucose [Mass/Vol] 98 mg/dL Normal 65-99 [facility] Comment on above: Performed By: #### 4 6942 ####[facility] [address] [place] [address] [id number] [facility] Glucose [Mass/Vol] 105 mg/dL High 65-99 [facility] Comment on above: Performed By: #### 4 4027 ####[facility] [address] [place] [address] [id number] [facility] Glucose [Mass/Vol] 107 mg/dL High 65-99 [facility] Comment on above: Performed By: #### 4 2044 ####[facility] [address] [place] [address] [id number] RM[facility] Glucose [Mass/Vol] 95 mg/dL Normal 65-99 [facility] Comment on above: Performed By: #### 4 0713 ####[facility] [address] [place] [address] [id number] RM[facility] Glucose [Mass/Vol] 99 mg/dL Normal 65-99 [facility] Comment on above: Performed By: #### 4 6932 ####[facility] [address] [place] [address] [id number] [facility] PT/INRon 10-13-2023 INR Coag (PPP) [Relative time] 1.9 {INR} High 0.8-1.1 [facility] Comment on above: Order Comment: Jennifer g the induction phase of oral anticoagulation, the INR may not reflect the anticoagulation status of the patient. Therapeutic ranges for INR's are:Most clinical situations: INR 2.0-3.0Mechanical Prosthetic Valve: INR 2.5-3.5Critical: INR >5.0 Performed By: #### 4 6391 ####[facility] [address] [place] [address] Glenn Gudino M.D. [id number] PT Coag (PPP) [Time] 22.3 s High 11.8-14.3 [facility] Comment on above: Order Comment: Jennifer retana the induction phase of oral anticoagulation, the INR may not reflect the anticoagulation status of the patient. Therapeutic ranges for INR's are:Most clinical situations: INR 2.0-3.0Mechanical Prosthetic Valve: INR 2.5-3.5Critical: INR >5.0 Result Comment: Resu lts checked. Performed By: #### 4 6391 ####[facility] [address] [place] [address] Glenn Gudino M.D. [id number] BASIC METABOLIC PANELon 09-26 Anion gap [Moles/Vol] 18 mmol/L Normal 10-20 [facility] Comment on above: Order Comment: [facility] has implemented the eGFR calculation approach that does not have a coefficient for race that conforms to the NKF-ASN Task Force Recommendations. Performed By: #### 4 6122 ####[facility] [address] [place] [address] 31065 Glenn Gudino M.D. [id number] Calcium [Mass/Vol] 7.7 mg/dL Low 8.4-10.2 [facility] Comment on above: Order Comment: [facility] has implemented the eGFR calculation approach that does not have a coefficient for race that conforms to the NKF-ASN Task Force Recommendations. Performed By: #### 4 6124 ####[facility] [address] [place] [address] 11988 Glenn Gudino M.D. [id number] Chloride [Moles/Vol] 98 mmol/L Normal 98-108 [facility] Comment on above: Order Comment: [facility] has implemented the eGFR calculation approach that does not have a coefficient for race that conforms to the NKF-ASN Task Force Recommendations. Performed By: #### 4 6124 ####[facility] [address] [place] [address] 32539 Glenn Gudino M.D. [id number] Creatinine [Mass/Vol] 1.35 mg/dL High 0.60-1.10 [facility] Comment on above: Order Comment: [facility] has implemented the eGFR calculation approach that does not have a coefficient for race that conforms to the NKF-ASN Task Force Recommendations. Performed By: #### 4 6124 ####[facility] [address] [place], [place] [address] Glenn Gudino M.D. [id number] EGFR 45 mL/min/1.73 m2 Low >=60 [facility] Comment on above: Order Comment: [facility] has implemented the eGFR calculation approach that does not have a coefficient for race that conforms to the NKF-ASN Task Force Recommendations. Result Comment: Joi mated GFR was calculated using the 2020 CKD-EPI creatinine equation. Performed By: #### 4 6124 ####[facility] [address] [place] [address] 16035 Glenn Gudino M.D. [id number] Glucose [Mass/Vol] 202 mg/dL High 65-99 [facility] Comment on above: Order Comment: [facility] has implemented the eGFR calculation approach that does not have a coefficient for race that conforms to the NKF-ASN Task Force Recommendations. Performed By: #### 4 6124 ####[facility] [address] [place] [address] 76085 Glenn Gudino M.D. [id number] HCO3 (Bld) [Moles/Vol] 21 mmol/L Normal 21-32 [facility] Comment on above: Order Comment: [facility] has implemented the eGFR calculation approach that does not have a coefficient for race that conforms to the NKF-ASN Task Force Recommendations. Performed By: #### 4 6124 ####[facility] [address] [place], [place] [address] Glenn Gudino M.D. [id number] Potassium [Moles/Vol] 3.9 mmol/L Normal 3.5-5.1 [facility] Comment on above: Order Comment: [facility] has implemented the eGFR calculation approach that does not have a coefficient for race that conforms to the NKF-ASN Task Force Recommendations. Performed By: #### 4 6124 ####[facility] [address] [place] [address] 10209 Glenn Gudino M.D. [id number] Sodium [Moles/Vol] 133 mmol/L Low 135-145 [facility] Comment on above: Order Comment: [facility] has implemented the eGFR calculation approach that does not have a coefficient for race that conforms to the NKF-ASN Task Force Recommendations. Performed By: #### 4 6124 ####[facility] [address] [place] [address] 11581 Glenn Gudino M.D. [id number] Urea nitrogen [Mass/Vol] 33 mg/dL High 8-25 [facility] Comment on above: Order Comment: [facility] has implemented the eGFR calculation approach that does not have a coefficient for race that conforms to the NKF-ASN Task Force Recommendations. Performed By: #### 4 6124 ####[facility] [address] [place] [address] 32372 Glenn Gudino M.D. [id number] Urea nitrogen/Creatinine [Mass ratio] 24.4 mg/mg High 10.0-20.0 [facility] Comment on above: Order Comment: [facility] has implemented the eGFR calculation approach that does not have a coefficient for race that conforms to the NKF-ASN Task Force Recommendations. Performed By: #### 4 6124 ####[facility] [address] [place] [address] 03144 Glenn Gudino M.D. [id number] Anion gap [Moles/Vol] 14 mmol/L Normal 10-20 [facility] Comment on above: Order Comment: [facility] has implemented the eGFR calculation approach that does not have a coefficient for race that conforms to the NKF-ASN Task Force Recommendations. Performed By: #### 4 6124 ####[facility] [address] [place] [address] 61256 Glenn Gudino M.D. [id number] Calcium [Mass/Vol] 8.0 mg/dL Low 8.4-10.2 [facility] Comment on above: Order Comment: [facility] has implemented the eGFR calculation approach that does not have a coefficient for race that conforms to the NKF-ASN Task Force Recommendations. Performed By: #### 4 6124 ####[facility] [address] [place] [address] 21232 Glenn Gudino M.D. [id number] Chloride [Moles/Vol] 100 mmol/L Normal 98-108 [facility] Comment on above: Order Comment: [facility] has implemented the eGFR calculation approach that does not have a coefficient for race that conforms to the NKF-ASN Task Force Recommendations. Performed By: #### 4 6124 ####[facility] [address] [place] [address] 63265 Glenn Gudino M.D. [id number] Creatinine [Mass/Vol] 1.24 mg/dL High 0.60-1.10 [facility] Comment on above: Order Comment: [facility] has implemented the eGFR calculation approach that does not have a coefficient for race that conforms to the NKF-ASN Task Force Recommendations. Performed By: #### 4 6124 ####[facility] [address] [place] [address] 22492 Glenn Gudino M.D. [id number] EGFR 50 mL/min/1.73 m2 Low >=60 [facility] Comment on above: Order Comment: [facility] has implemented the eGFR calculation approach that does not have a coefficient for race that conforms to the NKF-ASN Task Force Recommendations. Result Comment: Joi mated GFR was calculated using the 2020 CKD-EPI creatinine equation. Performed By: #### 4 6124 ####[facility] [address] [place] [address] 87536 Glenn Gudino M.D. [id number] Glucose [Mass/Vol] 84 mg/dL Normal 65-99 [facility] Comment on above: Order Comment: [facility] has implemented the eGFR calculation approach that does not have a coefficient for race that conforms to the NKF-ASN Task Force Recommendations. Performed By: #### 4 6124 ####[facility] [address] [place] [address] 71098 Glenn Gudino M.D. [id number] HCO3 (Bld) [Moles/Vol] 25 mmol/L Normal 21-32 [facility] Comment on above: Order Comment: [facility] has implemented the eGFR calculation approach that does not have a coefficient for race that conforms to the NKF-ASN Task Force Recommendations. Performed By: #### 4 6124 ####[facility] [address] [place] [address] 83333 Glenn Gudino M.D. [id number] Potassium [Moles/Vol] 4.1 mmol/L Normal 3.5-5.1 [facility] Comment on above: Order Comment: [facility] has implemented the eGFR calculation approach that does not have a coefficient for race that conforms to the NKF-ASN Task Force Recommendations. Performed By: #### 4 6124 ####[facility] [address] [place] [address] 71334 Glenn Gudino M.D. [id number] Sodium [Moles/Vol] 135 mmol/L Normal 135-145 [facility] Comment on above: Order Comment: [facility] has implemented the eGFR calculation approach that does not have a coefficient for race that conforms to the NKF-ASN Task Force Recommendations. Performed By: #### 4 6124 ####[facility] [address] [place] [address] 68138 Glenn Gudino M.D. [id number] Urea nitrogen [Mass/Vol] 33 mg/dL High 8-25 [facility] Comment on above: Order Comment: [facility] has implemented the eGFR calculation approach that does not have a coefficient for race that conforms to the NKF-ASN Task Force Recommendations. Performed By: #### 4 6124 ####[facility] [address] [place] [address] 99692 Glenn Gudino M.D. [id number] Urea nitrogen/Creatinine [Mass ratio] 26.6 mg/mg High 10.0-20.0 [facility] Comment on above: Order Comment: [facility] has implemented the eGFR calculation approach that does not have a coefficient for race that conforms to the NKF-ASN Task Force Recommendations. Performed By: #### 4 6124 ####[facility] [address] [place], [place] [address] Glenn Gudino M.D. [id number] CALCIUM, IONIZEDon CALCIUM IONIZED 4.5 mg/dL Normal 4.5-5.3 [facility] Comment on above: Performed By: #### 4 5190 ####[facility] [address] [place] [address] Glenn Gudino M.D. [id number] CBCon 10-12-2023 AUTO NRBC 0.0 % Normal [facility] Comment on above: Performed By: #### 4 [id number] ####[facility] [address] [place], [place] [address] Glenn Gudino M.D. [id number] AUTO NRBC ABS COUNT 0.00 K/mcL Normal 0.00-0.00 [facility] Comment on above: Performed By: #### 4 [id number] ####[facility] [address] [place] [address] Glenn Gudino M.D. [id number] Erythrocyte distribution width (RBC) [Ratio] 17.1 % High 11.6-14.8 [facility] Comment on above: Performed By: #### 4 [id number] ####[facility] [address] [place], [place] [address]Karma Gudino M.D. [id number] Hematocrit (Bld) [Volume fraction] 25.6 % Low 36.0-46.0 [facility] Comment on above: Performed By: #### 4 [id number] ####[facility] [address] [place], [place] [address] Glenn Gudino M.D. [id number] Hemoglobin (Bld) [Mass/Vol] 8.2 g/dL Low 12.0-16.0 [facility] Comment on above: Performed By: #### 4 [id number] ####[facility] [address] [place], [place] [address]Karma Gudino M.D. [id number] MCH (RBC) [Entitic mass] 27.2 pg Normal 26.0-34.0 [facility] Comment on above: Performed By: #### 4 [id number] ####[facility] [address] [place], [place] [address] Glenn Gudino M.D. [id number] MCV (RBC) [Entitic vol] 84.8 fL Normal 80.0-100.0 [facility] Comment on above: Performed By: #### 4 [id number] ####[facility] [address] [place] [address] Glenn Gudino M.D. [id number] MEAN CORPUSCULAR HEMOGLOBIN CONC 32.0 g/dL Normal 31.0-37.0 [facility] Comment on above: Performed By: #### 4 [id number] ####[facility] [address] [place] [address] Glenn Gudino M.D. [id number] Platelet mean volume (Bld) [Entitic vol] 9.2 fL Low 9.4-12.4 [facility] Comment on above: Performed By: #### 4 [id number] ####[facility] [address] [place], [place] [address] Glenn Gudino M.D. [id number] Platelets (Bld) [#/Vol] 286 10*3/uL Normal 150-400 [facility] Comment on above: Performed By: #### 4 [id number] ####[facility] [address] [place], [place] [address] Glenn Gudino M.D. [id number] RBC (Bld) [#/Vol] 3.02 10*6/uL Low 4.00-5.20 [facility] Comment on above: Performed By: #### 4 [id number] ####[facility] [address] [place], [place] [address] Glenn Gudino M.D. [id number] WBC (Bld) [#/Vol] 14.32 10*3/uL High 4.50-11.00 [facility] Comment on above: Performed By: #### 4 [id number] ####[facility] [address] [place], [place] [address] Glenn Gudino M.D. [id number] CONSULTon 10-12-2023 CONSULT Normal [facility] CONSULT Normal [facility] HEMOGLOBIN A1Con 10-12-2023 Glucose [Mass/Vol] 111 mg/dL Normal 74-114 [facility] Comment on above: Order Comment: Irina l: 4.2% - 5.6%Increased risk for diabetes: 5.7% - 6.4%Diabetes: >= 6.5%Pediatrics: No established reference rangeEstimated average glucose: 74-114 mg/dL Performed By: #### 4 8202 ####[facility] [address] [place] [address] Glenn Gudino M.D. [id number] HbA1c (Bld) [Mass fraction] 5.5 % Normal 4.2-5.6 [facility] Comment on above: Order Comment: Irina l: 4.2% - 5.6%Increased risk for diabetes: 5.7% - 6.4%Diabetes: >= 6.5%Pediatrics: No established reference rangeEstimated average glucose: 74-114 mg/dL Performed By: #### 4 8202 ####[facility] [address] [place], [place] [address] Glenn Gudino M.D. [id number] HEPATIC FUNCTION PANELon Albumin [Mass/Vol] 2.5 g/dL Low 3.2-5.2 [facility] Comment on above: Performed By: #### 4 5866 ####[facility] [address] [place], [place] [address] Glenn Gudino M.D. [id number] ALP [Catalytic activity/Vol] 75 U/L Normal 40-150 [facility] Comment on above: Performed By: #### 4 5866 ####[facility] [address] [place], [place] [address] Glenn Gudino M.D. [id number] ALT [Catalytic activity/Vol] 27 U/L Normal 0-35 U/L [facility] Comment on above: Performed By: #### 4 5866 ####[facility] [address] [place] [address] Glenn Gudino M.D. [id number] AST [Catalytic activity/Vol] 45 U/L High 0-35 U/L [facility] Comment on above: Performed By: #### 4 5866 ####[facility] [address] [place], [place] [address] Glenn Gudino M.D. [id number] Bilirubin [Mass/Vol] 0.5 mg/dL Normal 0.0-1.3 [facility] Comment on above: Performed By: #### 4 5866 ####[facility] [address] [place], [place] [address] Glenn Gudino M.D. [id number] Bilirubin.indirect [Mass/Vol] 0.2 mg/dL Normal 0.0-0.4 [facility] Comment on above: Performed By: #### 4 5866 ####[facility] [address] [place], [place] [address] Glenn Gudino M.D. [id number] Protein [Mass/Vol] 6.2 g/dL Normal 6.0-8.0 [facility] Comment on above: Performed By: #### 4 5866 ####[facility] [address] [place], [place] [address] Glenn Gudino M.D. [id number] MAGNESIUM LEVELon 10-12-2023 Magnesium [Mass/Vol] 1.9 mg/dL Normal 1.6-2.4 [facility] Comment on above: Performed By: #### 4 6109 ####[facility] [address] [place] [address] Glenn Gudino M.D. [id number] PHOSPHORUSon 10-12-2023 Phosphate [Mass/Vol] 2.0 mg/dL Low 2.8-4.1 [facility] Comment on above: Performed By: #### 4 6299 ####[facility] [address] [place] [address] Glenn Gudino M.D. [id number] Phosphate [Mass/Vol] 2.1 mg/dL Low 2.8-4.1 [facility] Comment on above: Performed By: #### 4 6299 ####[facility] [address] [place] [address] Glenn Gudino M.D. [id number] POC GLUCOSE - [facility] 024 Glucose [Mass/Vol] 81 mg/dL Normal 65-99 [facility] Comment on above: Performed By: #### 4 8645 ####[facility] [address] [place] [address] [id number] [facility] Glucose [Mass/Vol] 43 mg/dL Low 65-99 [facility] Comment on above: Performed By: #### 4 6455 ####[facility] [address] [place] [address] [id number] [facility] Glucose [Mass/Vol] 46 mg/dL Low 65-99 [facility] Comment on above: Performed By: #### 4 7426 ####[facility] [address] [place] [address] [id number] [facility] Glucose [Mass/Vol] 34 mg/dL Off scale low 65-99 [facility] Comment on above: Order Comment: Criti cherrie result acted upon time of test. Test performed at bedside. Performed By: #### 4 1515 ####[facility] [address] [place] [address] [id number] [facility] Glucose [Mass/Vol] 32 mg/dL Off scale low 65-99 [facility] Comment on above: Order Comment: Criti cherrie result acted upon time of test. Test performed at bedside. Performed By: #### 4 6932 ####[facility] [address] [place] [address] [id number] [facility] Glucose [Mass/Vol] 25 mg/dL Off scale low 65-99 [facility] Comment on above: Order Comment: Criti cherrie result acted upon time of test. Test performed at bedside. Performed By: #### 4 6976 ####[facility] [address] [place] [address] [id number] [facility] Glucose [Mass/Vol] 34 mg/dL Off scale low 65-99 [facility] Comment on above: Order Comment: Criti cherrie result acted upon time of test. Test performed at bedside. Performed By: #### 4 6932 ####[facility] [address] [place] [address] [id number] [facility] Glucose [Mass/Vol] 29 mg/dL Off scale low 65-99 [facility] Comment on above: Order Comment: Criti cherrie result acted upon time of test. Test performed at bedside. Performed By: #### 4 6908 ####[facility] [address] [place] [address] [id number] [facility] Glucose [Mass/Vol] 105 mg/dL High 65-99 [facility] Comment on above: Performed By: #### 4 6545 ####[facility] [address] [place] [address] [id number] [facility] Glucose [Mass/Vol] 105 mg/dL High 65-99 [facility] Comment on above: Performed By: #### 4 0169 ####[facility] [address] [place] [address] [id number] [facility] Glucose [Mass/Vol] 99 mg/dL Normal 65-99 [facility] Comment on above: Performed By: #### 4 6932 ####[facility] [address] [place] [address] [id number] [facility] Glucose [Mass/Vol] 97 mg/dL Normal 65-99 [facility] Comment on above: Performed By: #### 4 6932 ####[facility] [address] [place] [address] [id number] [facility] Glucose [Mass/Vol] 101 mg/dL High 65-99 [facility] Comment on above: Performed By: #### 4 6932 ####[facility] [address] [place] [address] [id number] [facility] Glucose [Mass/Vol] 131 mg/dL High 65-99 [facility] Comment on above: Performed By: #### 4 6932 ####[facility] [address] [place] [address] [id number] [facility] PT/INRon 10-12-2023 INR Coag (PPP) [Relative time] 1.4 {INR} High 0.8-1.1 [facility] Comment on above: Order Comment: Jennifer retana the induction phase of oral anticoagulation, the INR may not reflect the anticoagulation status of the patient. Therapeutic ranges for INR's are:Most clinical situations: INR 2.0-3.0Mechanical Prosthetic Valve: INR 2.5-3.5Critical: INR >5.0 Performed By: #### 4 6391 ####[facility] [address] [place] [address] Glenn Gudino M.D. [id number] PT Coag (PPP) [Time] 16.9 s High 11.8-14.3 [facility] Comment on above: Order Comment: Jennifer retana the induction phase of oral anticoagulation, the INR may not reflect the anticoagulation status of the patient. Therapeutic ranges for INR's are:Most clinical situations: INR 2.0-3.0Mechanical Prosthetic Valve: INR 2.5-3.5Critical: INR >5.0 Performed By: #### 4 6391 ####[facility] [address] [place] [address] 50863 Glenn Gudino M.D. [id number] BASIC METABOLIC PANELon 05- Anion gap [Moles/Vol] 17 mmol/L Normal 10-20 [facility] Comment on above: Order Comment: [facility] has implemented the eGFR calculation approach that does not have a coefficient for race that conforms to the NKF-ASN Task Force Recommendations. Performed By: #### 4 6124 ####[facility] [address] [place] [address] 40852 Glenn Gudino M.D. [id number] Calcium [Mass/Vol] 7.8 mg/dL Low 8.4-10.2 [facility] Comment on above: Order Comment: [facility] has implemented the eGFR calculation approach that does not have a coefficient for race that conforms to the NKF-ASN Task Force Recommendations. Performed By: #### 4 6124 ####[facility] [address] [place] [address] 01307 Glenn Gudino M.D. [id number] Chloride [Moles/Vol] 102 mmol/L Normal 98-108 [facility] Comment on above: Order Comment: [facility] has implemented the eGFR calculation approach that does not have a coefficient for race that conforms to the NKF-ASN Task Force Recommendations. Performed By: #### 4 6124 ####[facility] [address] [place] [address] 92420 Glenn Gudino M.D. [id number] Creatinine [Mass/Vol] 1.37 mg/dL High 0.60-1.10 [facility] Comment on above: Order Comment: [facility] has implemented the eGFR calculation approach that does not have a coefficient for race that conforms to the NKF-ASN Task Force Recommendations. Performed By: #### 4 6124 ####[facility] [address] [place], [place] [address] Glenn Gudino M.D. [id number] EGFR 44 mL/min/1.73 m2 Low >=60 [facility] Comment on above: Order Comment: [facility] has implemented the eGFR calculation approach that does not have a coefficient for race that conforms to the NKF-ASN Task Force Recommendations. Result Comment: Joi mated GFR was calculated using the 2020 CKD-EPI creatinine equation. Performed By: #### 4 6124 ####[facility] [address] [place], [place] [address] Glenn Gudino M.D. [id number] Glucose [Mass/Vol] 116 mg/dL High 65-99 [facility] Comment on above: Order Comment: [facility] has implemented the eGFR calculation approach that does not have a coefficient for race that conforms to the NKF-ASN Task Force Recommendations. Performed By: #### 4 6124 ####[facility] [address] [place], [place] [address] Glenn Gudino M.D. [id number] HCO3 (Bld) [Moles/Vol] 22 mmol/L Normal 21-32 [facility] Comment on above: Order Comment: [facility] has implemented the eGFR calculation approach that does not have a coefficient for race that conforms to the NKF-ASN Task Force Recommendations. Performed By: #### 4 6124 ####[facility] [address] [place], [place] [address] Glenn Gudino M.D. [id number] Potassium [Moles/Vol] 3.9 mmol/L Normal 3.5-5.1 [facility] [facility] Comment on above: Order Comment: [facility] has implemented the eGFR calculation approach that does not have a coefficient for race that conforms to the NKF-ASN Task Force Recommendations. Performed By: #### 4 6124 ####[facility] [address] [place], [place] [address] Glenn Gudino M.D. [id number] Sodium [Moles/Vol] 137 mmol/L Normal 135-145 [facility] Comment on above: Order Comment: [facility] has implemented the eGFR calculation approach that does not have a coefficient for race that conforms to the NKF-ASN Task Force Recommendations. Performed By: #### 4 6124 ####[facility] [address] [place], [place] [address] Glenn Gudino M.D. [id number] Urea nitrogen [Mass/Vol] 39 mg/dL High 8-25 [facility] Comment on above: Order Comment: [facility] has implemented the eGFR calculation approach that does not have a coefficient for race that conforms to the NKF-ASN Task Force Recommendations. Performed By: #### 4 6124 ####[facility] [address] [place], [place] [address] Glenn Gudino M.D. [id number] Urea nitrogen/Creatinine [Mass ratio] 28.5 mg/mg High 10.0-20.0 [facility] Comment on above: Order Comment: [facility] has implemented the eGFR calculation approach that does not have a coefficient for race that conforms to the NKF-ASN Task Force Recommendations. Performed By: #### 4 6124 ####[facility] [address] [place], [place] [address] Glenn Gudino M.D. [id number] CALCIUM, IONIZEDon CALCIUM IONIZED 4.5 mg/dL Normal 4.5-5.3 [facility] Comment on above: Performed By: #### 4 5190 ####[facility] [address] [place] [address] Glnen Gudino M.D. [id number] CBCon 10-11-2023 AUTO NRBC 0.0 % Normal [facility] Comment on above: Performed By: #### 4 [id number] ####[facility] [address] [place], [place] [address] Glenn Gudino M.D. [id number] AUTO NRBC ABS COUNT 0.00 K/mcL Normal 0.00-0.00 [facility] Comment on above: Performed By: #### 4 [id number] ####[facility] [address] [place], [place] [address] Glenn Gudino M.D. [id number] Erythrocyte distribution width (RBC) [Ratio] 16.4 % High 11.6-14.8 [facility] Comment on above: Performed By: #### 4 [id number] ####[facility] [address] [place] [address] Glenn Gudino M.D. [id number] Hematocrit (Bld) [Volume fraction] 23.0 % Low 36.0-46.0 [facility] Comment on above: Performed By: #### 4 [id number] ####[facility] [address] [place] [address] Glenn Gudino M.D. [id number] Hemoglobin (Bld) [Mass/Vol] 7.8 g/dL Low 12.0-16.0 [facility] Comment on above: Performed By: #### 4 [id number] ####[facility] [address] [place], [place] [address]Karma Gudino M.D. [id number] MCH (RBC) [Entitic mass] 27.7 pg Normal 26.0-34.0 [facility] Comment on above: Performed By: #### 4 [id number] ####[facility] [address] [place], [place] [address] Glenn Gudino M.D. [id number] MCV (RBC) [Entitic vol] 81.6 fL Normal 80.0-100.0 [facility] Comment on above: Performed By: #### 4 [id number] ####[facility] [address] [place] [address] Glenn Gudino M.D. [id number] MEAN CORPUSCULAR HEMOGLOBIN CONC 33.9 g/dL Normal 31.0-37.0 [facility] Comment on above: Performed By: #### 4 [id number] ####[facility] [address] [place], [place] [address] Glenn Gudino M.D. [id number] Platelet mean volume (Bld) [Entitic vol] 9.6 fL Normal 9.4-12.4 [facility] Comment on above: Performed By: #### 4 [id number] ####[facility] [address] [place], [place] [address] Glenn Gudino M.D. [id number] Platelets (Bld) [#/Vol] 270 10*3/uL Normal 150-400 [facility] Comment on above: Performed By: #### 4 [id number] ####[facility] [address] [place], [place] [address] Glenn Gudino M.D. [id number] RBC (Bld) [#/Vol] 2.82 10*6/uL Low 4.00-5.20 [facility] Comment on above: Performed By: #### 4 [id number] ####[facility] [address] [place], [place] [address] Glenn Gudino M.D. [id number] WBC (Bld) [#/Vol] 16.66 10*3/uL High 4.50-11.00 [facility] Comment on above: Performed By: #### 4 [id number] ####[facility] [address] [place], [place] [address] Glenn Gudino M.D. [id number] HEPATIC FUNCTION PANELon Albumin [Mass/Vol] 2.3 g/dL Low 3.2-5.2 [facility] Comment on above: Performed By: #### 4 5866 ####[facility] [address] [place], [place] [address] Glenn Gudino M.D. [id number] ALP [Catalytic activity/Vol] 62 U/L Normal 40-150 [facility] Comment on above: Performed By: #### 4 5866 ####[facility] [address] [place] [address] Glenn Gudino M.D. [id number] ALT [Catalytic activity/Vol] 31 U/L Normal 0-35 U/L [facility] Comment on above: Performed By: #### 4 5866 ####[facility] [address] [place] [address] Glenn Gudino M.D. [id number] AST [Catalytic activity/Vol] 51 U/L High 0-35 U/L [facility] Comment on above: Performed By: #### 4 5866 ####[facility] [address] [place], [place] [address] Glenn Gudino M.D. [id number] Bilirubin [Mass/Vol] 0.4 mg/dL Normal 0.0-1.3 [facility] Comment on above: Performed By: #### 4 5866 ####[facility] [address] [place], [place] [address] Glenn Gudino M.D. [id number] Bilirubin.indirect [Mass/Vol] 0.2 mg/dL Normal 0.0-0.4 [facility] Comment on above: Performed By: #### 4 5866 ####[facility] [address] [place], [place] [address] Glenn Gudino M.D. [id number] Protein [Mass/Vol] 5.8 g/dL Low 6.0-8.0 [facility] Comment on above: Performed By: #### 4 5844 ####[facility] [address] [place], [place] [address] Glenn Gudino M.D. [id number] MAGNESIUM LEVELon 10-11-2023 Magnesium [Mass/Vol] 2.2 mg/dL Normal 1.6-2.4 [facility] Comment on above: Performed By: #### 4 6109 ####[facility] [address] [place] [address] Glenn Gudino M.D. [id number] OP NOTEon 10-11-2023 OP NOTE Normal [facility] PHOSPHORUSon 10-11-2023 Phosphate [Mass/Vol] 4.7 mg/dL High 2.8-4.1 [facility] Comment on above: Performed By: #### 4 6299 ####[facility] [address] [place] [address] Glenn Gudino M.D. [id number] POC GLUCOSE - [facility] 024 Glucose [Mass/Vol] 111 mg/dL High 65-99 [facility] Comment on above: Performed By: #### 4 6932 ####[facility] [address] [place] [address] [id number] [facility] Glucose [Mass/Vol] 56 mg/dL Low 65-[address] [place] [address] Comment on above: Performed By: #### 4 6932 ####[facility] [address] [place] [address] [id number] [facility] Glucose [Mass/Vol] 42 mg/dL Low 65-99 [facility] Comment on above: Performed By: #### 4 5933 ####[facility] [address] [place] [address] [id number] [facility] Glucose [Mass/Vol] 50 mg/dL Low 65-[address] [place] [address] Comment on above: Performed By: #### 4 9178 ####[facility] [address] [place] [address] [id number] [facility] Glucose [Mass/Vol] 59 mg/dL Low 65-99 [facility] Comment on above: Performed By: #### 4 4267 ####[facility] [address] [place] [address] [id number] [facility] Glucose [Mass/Vol] 74 mg/dL Normal 65-99 [facility] Comment on above: Performed By: #### 4 6932 ####[facility] [address] [place] [address] [id number] [facility] Glucose [Mass/Vol] 119 mg/dL High 65- [facility] Comment on above: Performed By: #### 4 6932 ####[facility] [address] [place] [address] [id number] [facility] Glucose [Mass/Vol] 88 mg/dL Normal 65- [facility] Comment on above: Performed By: #### 4 6932 ####[facility] [address] [place] [address] [id number] [facility] Glucose [Mass/Vol] 126 mg/dL High 65- [facility] Comment on above: Performed By: #### 4 6932 ####[facility] [address] [place] [address] [id number] [facility] POTASSIUM LEVELon 10-11-2023 Potassium [Moles/Vol] 4.1 mmol/L Normal 3.5-5.1 [facility] Comment on above: Performed By: #### 4 6351 ####[facility] [address] [place] [address] Glenn Gudino M.D. [id number] PT/INRon 10-11-2023 INR Coag (PPP) [Relative time] 1.1 {INR} Normal 0.8-1.1 [facility] Comment on above: Order Comment: Jennifer retana the induction phase of oral anticoagulation, the INR may not reflect the anticoagulation status of the patient. Therapeutic ranges for INR's are:Most clinical situations: INR 2.0-3.0Mechanical Prosthetic Valve: INR 2.5-3.5Critical: INR >5.0 Performed By: #### 4 6391 ####[facility] [address] [place], [place] [address] Glenn Gudino M.D. [id number] PT Coag (PPP) [Time] 14.3 s Normal 11.8-14.3 [facility] Comment on above: Order Comment: Jennifer retana the induction phase of oral anticoagulation, the INR may not reflect the anticoagulation status of the patient. Therapeutic ranges for INR's are:Most clinical situations: INR 2.0-3.0Mechanical Prosthetic Valve: INR 2.5-3.5Critical: INR >5.0 Performed By: #### 4 6391 ####[facility] [address] [place], [place] [address] Glenn Gudino M.D. [id number] APTTon 10-10-2023 aPTT Coag (Bld) [Time] 34 s Normal 23-34 [facility] Comment on above: Order Comment: Thera peutic range for APTT's is 68 - 104 seconds Performed By: #### 4 5113 ####[facility] [address] [place], [place] [address] Glenn Gudino M.D. [id number] BILIRUBIN, DIRECTon 10-10-19 24 Bilirubin.indirect [Mass/Vol] 1.1 mg/dL High 0.0-0.4 [facility] Comment on above: Performed By: #### 4 5145 ####[facility] [address] [place], [place] [address] Glenn Gudino M.D. [id number] CALCIUM, IONIZEDon CALCIUM IONIZED 4.3 mg/dL Low 4.5-5.3 [facility] Comment on above: Performed By: #### 4 5190 ####[facility] [address] [place], [place] [address] Glenn Gudino M.D. [id number] CBC WITH AUTO DIFFERENTIALon 10-10-2023 AUTO NRBC 0.0 % Normal [facility] Comment on above: Performed By: #### L [id number] ####[facility] [address] [place] [address] Glenn Gudino M.D. [id number] AUTO NRBC ABS COUNT 0.00 K/mcL Normal 0.00-0.00 [facility] Comment on above: Performed By: #### L [id number] ####[facility] [address] [place] [address] Glenn Gudino M.D. [id number] BASOPHILS ABSOLUTE COUNT 0.02 K/mcL Normal 0.00-0.30 [facility] Comment on above: Performed By: #### L [id number] ####[facility] [address] [place], [place] [address] Glenn Gudino M.D. [id number] Basophils/100 WBC (Bld) 0.1 % Normal [facility] Comment on above: Performed By: #### L [id number] ####[facility] [address] [place], [place] [address] Glenn Gudino M.D. [id number] Eosinophils (Bld) [#/Vol] 0.01 10*3/uL Normal 0.00-0.50 [facility] Comment on above: Performed By: #### L [id number] ####[facility] [address] [place], [place] [address] Glenn Gudino M.D. [id number] Eosinophils/100 WBC (Bld) 0.1 % Normal [facility] Comment on above: Performed By: #### L [id number] ####[facility] [address] [place], [place] [address] Glenn Gudino M.D. [id number] Erythrocyte distribution width (RBC) [Ratio] 15.5 % High 11.6-14.8 [facility] Comment on above: Performed By: #### L [id number] ####[facility] [address] [place], [place] [address] Glenn Gudino M.D. [id number] Hematocrit (Bld) [Volume fraction] 28.6 % Low 36.0-46.0 [facility] Comment on above: Result Comment: Repe ated verified Performed By: #### L [id number] ####[facility] [address] [place] [address] Glenn Gudino M.D. [id number] Hemoglobin (Bld) [Mass/Vol] 9.7 g/dL Low 12.0-16.0 [facility] Comment on above: Result Comment: Repe ated verified Performed By: #### L [id number] ####[facility] [address] [place] [address] Glenn Gudino M.D. [id number] IG ABSOLUTE 0.46 K/mcL High 0.00-0.30 [facility] Comment on above: Performed By: #### L [id number] ####[facility] [address] [place] [address] Glenn Gudino M.D. [id number] IG PERCENT 3.00 % Normal [facility] Comment on above: Result Comment: The IG parameter is the percentage of metamyelocytes, myelocytes and promyelocytes. An immature granulocyte count (IG) of 1% or more suggests the possibility of infection, an IG count of 3% is very likely related to an infection. Performed By: #### L [id number] ####[facility] [address] [place] [address] Glenn Gudino M.D. [id number] Lymphocytes (Bld) [#/Vol] 0.44 10*3/uL Low 0.90-4.00 [facility] Comment on above: Performed By: #### L [id number] ####[facility] [address] [place] [address] Glenn Gudino M.D. [id number] Lymphocytes/100 WBC (Bld) 2.9 % Normal [facility] Comment on above: Performed By: #### Hugh [id number] ####[facility] [address] [place] [address] Glenn Gudino M.D. [id number] MCH (RBC) [Entitic mass] 28.1 pg Normal 26.0-34.0 [facility] Comment on above: Performed By: #### Hugh [id number] ####[facility] [address] [place] [address] Glenn Gudino M.D. [id number] MCV (RBC) [Entitic vol] 82.9 fL Normal 80.0-100.0 [facility] Comment on above: Performed By: #### Hugh [id number] ####[facility] [address] [place] [address] Glenn Gudino M.D. [id number] MEAN CORPUSCULAR HEMOGLOBIN CONC 33.9 g/dL Normal 31.0-37.0 [facility] Comment on above: Performed By: #### Hugh [id number] ####[facility] [address] [place] [address] Glenn Gudino M.D. [id number] Monocytes (Bld) [#/Vol] 0.76 10*3/uL Normal 0.30-0.90 [facility] Comment on above: Performed By: #### Hugh [id number] ####[facility] [address] [place] [address] Glenn Gudino M.D. [id number] Monocytes/100 WBC (Bld) 5.0 % Normal [facility] Comment on above: Performed By: #### Hugh [id number] ####[facility] [address] [place] [address] Glenn Gudino M.D. [id number] NEUTROPHILS ABSOLUTE COUNT 13.47 K/mcL High 1.70-7.00 [facility] Comment on above: Performed By: #### Hugh [id number] ####[facility] [address] [place], [place] [address]Karma Gudino M.D. [id number] Neutrophils/100 WBC (Bld) 88.9 % Normal [facility] Comment on above: Performed By: #### Hugh [id number] ####[facility] [address] [place] [address] Glenn Gudino M.D. [id number] Platelet mean volume (Bld) [Entitic vol] 9.6 fL Normal 9.4-12.4 [facility] Comment on above: Performed By: #### Hugh [id number] ####[facility] [address] [place] [address] Glenn Gudino M.D. [id number] Platelets (Bld) [#/Vol] 182 10*3/uL Normal 150-400 [facility] Comment on above: Result Comment: Repe ated verified Performed By: #### Hugh [id number] ####[facility] [address] [place], [place] [address] Glenn Gudino M.D. [id number] RBC (Bld) [#/Vol] 3.45 10*6/uL Low 4.00-5.20 [facility] Comment on above: Performed By: #### Hugh [id number] ####[facility] [address] [place], [place] [address] Glenn Gudino M.D. [id number] WBC (Bld) [#/Vol] 15.16 10*3/uL High 4.50-11.00 [facility] Comment on above: Performed By: #### Hugh [id number] ####[facility] [address] [place], [place] [address] Glenn Gudino M.D. [id number] COMPREHENSIVE METABOLIC PANE Magdaleno 10-10-2023 Albumin [Mass/Vol] 2.2 g/dL Low 3.2-5.2 [facility] Comment on above: Order Comment: [facility] has implemented the eGFR calculation approach that does not have a coefficient for race that conforms to the NKF-ASN Task Force Recommendations. Performed By: #### 4 6126 ####[facility] [address] [place] [address] Glenn Gudino M.D. [id number] ALP [Catalytic activity/Vol] 62 U/L Normal 40-150 [facility] Comment on above: Order Comment: [facility] has implemented the eGFR calculation approach that does not have a coefficient for race that conforms to the NKF-ASN Task Force Recommendations. Performed By: #### 4 6126 ####[facility] [address] [place] [address] Glenn Gudino M.D. [id number] ALT [Catalytic activity/Vol] 31 U/L Normal 0-35 U/L [facility] Comment on above: Order Comment: [facility] has implemented the eGFR calculation approach that does not have a coefficient for race that conforms to the NKF-ASN Task Force Recommendations. Result Comment: Slig htly Hemolyzed Performed By: #### 4 6126 ####[facility] [address] [place], [place] [address] Glenn Gudino M.D. [id number] Anion gap [Moles/Vol] 22 mmol/L High 10-20 [facility] Comment on above: Order Comment: [facility] has implemented the eGFR calculation approach that does not have a coefficient for race that conforms to the NKF-ASN Task Force Recommendations. Performed By: #### 4 6126 ####[facility] [address] [place], [place] [address] Glenn Gudino M.D. [id number] AST [Catalytic activity/Vol] 52 U/L High 0-35 U/L [facility] Comment on above: Order Comment: [facility] has implemented the eGFR calculation approach that does not have a coefficient for race that conforms to the NKF-ASN Task Force Recommendations. Result Comment: Marisol leblanc Hemolyzed Performed By: #### 4 6188 ####[facility] [address] [place] [address] Glenn Gudino M.D. [id number] Bilirubin [Mass/Vol] 1.3 mg/dL Normal 0.0-1.3 [facility] Comment on above: Order Comment: [facility] has implemented the eGFR calculation approach that does not have a coefficient for race that conforms to the NKF-ASN Task Force Recommendations. Performed By: #### 4 6126 ####[facility] [address] [place] [address] Glenn Gudino M.D. [id number] Calcium [Mass/Vol] 7.2 mg/dL Low 8.4-10.2 [facility] Comment on above: Order Comment: [facility] has implemented the eGFR calculation approach that does not have a coefficient for race that conforms to the NKF-ASN Task Force Recommendations. Performed By: #### 4 6126 ####[facility] [address] [place], [place] [address] Glenn Gudino M.D. [id number] Chloride [Moles/Vol] 97 mmol/L Low 98-108 [facility] Comment on above: Order Comment: [facility] has implemented the eGFR calculation approach that does not have a coefficient for race that conforms to the NKF-ASN Task Force Recommendations. Performed By: #### 4 6195 ####[facility] [address] [place], [place] [address] Glenn Gudino M.D. [id number] Creatinine [Mass/Vol] 1.32 mg/dL High 0.60-1.10 [facility] Comment on above: Order Comment: [facility] has implemented the eGFR calculation approach that does not have a coefficient for race that conforms to the NKF-ASN Task Force Recommendations. Performed By: #### 4 6126 ####[facility] [address] [place] [address] Glenn Gudino M.D. [id number] EGFR 46 mL/min/1.73 m2 Low >=60 [facility] Comment on above: Order Comment: [facility] has implemented the eGFR calculation approach that does not have a coefficient for race that conforms to the NKF-ASN Task Force Recommendations. Result Comment: Joi mated GFR was calculated using the 2020 CKD-EPI creatinine equation. Performed By: #### 4 6126 ####[facility] [address] [place], [place] [address] Glenn Gudino M.D. [id number] Glucose [Mass/Vol] 147 mg/dL High 65-99 [facility] Comment on above: Order Comment: [facility] has implemented the eGFR calculation approach that does not have a coefficient for race that conforms to the NKF-ASN Task Force Recommendations. Performed By: #### 4 6126 ####[facility] [address] [place] [address] Glenn Gudino M.D. [id number] HCO3 (Bld) [Moles/Vol] 19 mmol/L Low 21-32 [facility] Comment on above: Order Comment: [facility] has implemented the eGFR calculation approach that does not have a coefficient for race that conforms to the NKF-ASN Task Force Recommendations. Performed By: #### 4 6126 ####[facility] [address] [place] [address] Glenn Gudino M.D. [id number] Potassium [Moles/Vol] 4.9 mmol/L Normal 3.5-5.1 [facility] Comment on above: Order Comment: [facility] has implemented the eGFR calculation approach that does not have a coefficient for race that conforms to the NKF-ASN Task Force Recommendations. Result Comment: Slig htly Hemolyzed Performed By: #### 4 6126 ####[facility] [address] [place] [address]105 Glenn Gudino M.D. [id number] Protein [Mass/Vol] 5.1 g/dL Low 6.0-8.0 [facility] Comment on above: Order Comment: [facility] has implemented the eGFR calculation approach that does not have a coefficient for race that conforms to the NKF-ASN Task Force Recommendations. Performed By: #### 4 6126 ####[facility] [address] [place] [address] 10088 Glenn Gudino M.D. [id number] Sodium [Moles/Vol] 133 mmol/L Low 135-145 [facility] Comment on above: Order Comment: [facility] has implemented the eGFR calculation approach that does not have a coefficient for race that conforms to the NKF-ASN Task Force Recommendations. Performed By: #### 4 6126 ####[facility] [address] [place] [address] 99260 Glenn Gudino M.D. [id number] Urea nitrogen [Mass/Vol] 39 mg/dL High 8-25 [facility] Comment on above: Order Comment: [facility] has implemented the eGFR calculation approach that does not have a coefficient for race that conforms to the NKF-ASN Task Force Recommendations. Performed By: #### 4 6126 ####[facility] [address] [place] [address] 32562 Glenn Gudino M.D. [id number] Urea nitrogen/Creatinine [Mass ratio] 29.5 mg/mg High 10.0-20.0 [facility] Comment on above: Order Comment: [facility] has implemented the eGFR calculation approach that does not have a coefficient for race that conforms to the NKF-ASN Task Force Recommendations. Performed By: #### 4 6126 ####[facility] [address] [place], [place] [address] Glenn Gudino M.D. [id number] CONSULTon 10-10-2023 CONSULT Normal [facility] CONSULT Normal [facility] FIBRINOGENon 10-10-2023 FIBRINOGEN LEVEL 347 mg/dL Normal 224-483 [facility] Comment on above: Performed By: #### 4 5616 ####[facility] [address] [place] [address] Glenn Gudino M.D. [id number] LACTIC ACID, PLASMAon 2023 LACTIC ACID, PLASMA 1.0 mmol/L Normal 0.6-2.0 [facility] Comment on above: Performed By: #### 4 6053 ####[facility] [address] [place] [address] Glenn Gudino M.D. [id number] LDHon 10-10-2023 LDH [Catalytic activity/Vol] 339 U/L High 100-250 [facility] Comment on above: Performed By: #### 4 6065 ####[facility] [address] [place], [place] [address] Glenn Gudino M.D. [id number] MAGNESIUM LEVELon 10-10-2023 Magnesium [Mass/Vol] 2.3 mg/dL Normal 1.6-2.4 [facility] Comment on above: Performed By: #### 4 6109 ####[facility] [address] [place], [place] [address] Glenn Gudino M.D. [id number] PHOSPHORUSon 10-10-2023 Phosphate [Mass/Vol] 7.3 mg/dL High 2.8-4.1 [facility] Comment on above: Performed By: #### 4 6299 ####[facility] [address] [place], [place] [address] Glenn Gudino M.D. [id number] POC ARTERIAL BLOOD GAS PANEL -PULM - RALSon 10-10-2023 BASE EXCESS, ARTERIAL -4.0 Low -2.0-2.0 [facility] Comment on above: Performed By: #### 4 8716 ####[facility] [address] [place] [address] [id number] [facility] CALCIUM IONIZED 4.2 mg/dL Low 4.5-5.3 [facility] Comment on above: Performed By: #### 4 8416 ####[facility] [address] [place] [address] [id number] [facility] CARBOXYHEMOGLOBIN 1.9 % of total Hb High <=1.5 [facility] Comment on above: Result Comment: Refe rence R[facility] Non-smokers: <1.5%Smokers: 1.5-5.0%Heavy Smokers: 5.0-9.0% Performed By: #### 4 7016 ####[facility] [address] [place] [address] [id number] [facility] Chloride [Moles/Vol] 98 mmol/L Normal 98-108 [facility] Comment on above: Performed By: #### 4 9416 ####[facility] [address] [place] [address] [id number] [facility] FIO2 40 Normal [facility] Comment on above: Performed By: #### 4 5116 ####[facility] [address] [place] [address] [id number] [facility] Glucose [Mass/Vol] 142 mg/dL High 65-99 [facility] Comment on above: Performed By: #### 4 7716 ####[facility] [address] [place] [address] [id number] [facility] HCO3 (Bld) [Moles/Vol] 21.3 mmol/L Low 22.0-26.0 [facility] Comment on above: Performed By: #### 4 5039 ####[facility] [address] [place] [address] [id number] [facility] Hematocrit (Bld) [Volume fraction] 31.0 % Low 36.0-46.0 [facility] Comment on above: Performed By: #### 4 8716 ####[facility] [address] [place] [address] [id number] [facility] Hemoglobin (Bld) [Mass/Vol] 10.1 g/dL Low 12.0-16.0 [facility] Comment on above: Performed By: #### 4 8716 ####[facility] [address] [place] [address] [id number] [facility] LACTIC ACID, WHOLE BLOOD 1.1 mmol/L Normal 0.6-2.0 [facility] Comment on above: Performed By: #### 4 8716 ####[facility] [address] [place] [address] [id number] [facility] METHEMOGLOBIN < Normal 0.0-2.0 [facility] Comment on above: Performed By: #### 4 8916 ####[facility] [address] [place] [address] [id number] [facility] O2HB 96.1 % Normal 94.0-98.0 [facility] Comment on above: Performed By: #### 4 9616 ####[facility] [address] [place] [address] [id number] [facility] Oxygen saturation in Blood 98.4 % Normal 92.0-99.0 [facility] Comment on above: Performed By: #### 4 0616 ####[facility] [address] [place] [address] [id number] [facility] PCO2 ARTERIAL 38.7 mm Hg Normal 35.0-45.0 [facility] Comment on above: Performed By: #### 4 2416 ####[facility] [address] [place] [address] [id number] [facility] PEEP RAD 5 Normal [facility] Comment on above: Performed By: #### 4 6143 ####[facility] [address] [place] [address] [id number] [facility] PH ARTERIAL 7.35 Normal 7.35-7.45 [facility] Comment on above: Performed By: #### 4 8716 ####[facility] [address] [place] [address] [id number] [facility] PO2 ARTERIAL 96 mm Hg Normal 80-100 [facility] Comment on above: Performed By: #### 4 8716 ####[facility] [address] [place] [address] [id number] [facility] Potassium [Moles/Vol] 4.6 mmol/L Normal 3.5-5.1 [facility] Comment on above: Performed By: #### 4 8716 ####[facility] [address] [place] [address] [id number] [facility] Sodium [Moles/Vol] 131 mmol/L Low 135-145 [facility] Comment on above: Performed By: #### 4 8716 ####[facility] [address] [place] [address] [id number] [facility] POC GLUCOSE [facility] 024 Glucose [Mass/Vol] 118 mg/dL High 65-99 [facility] Comment on above: Performed By: #### 4 0732 ####[facility] [address] [place] [address] [id number] [facility] Glucose [Mass/Vol] 53 mg/dL Low 65-99 [facility] Comment on above: Performed By: #### 4 6632 ####[facility] [address] [place] [address] [id number] [facility] Glucose [Mass/Vol] 144 mg/dL High 65-99 [facility] Comment on above: Performed By: #### 4 2222 ####[facility] [address] [place] [address] [id number] [facility] Glucose [Mass/Vol] 47 mg/dL Low 65-99 [facility] Comment on above: Performed By: #### 4 6932 ####[facility] [address] [place] [address] [id number] [facility] Glucose [Mass/Vol] 87 mg/dL Normal [address] [place] [address] Comment on above: Performed By: #### 4 6932 ####[facility] [address] [place] [address] [id number] [facility] Glucose [Mass/Vol] 167 mg/dL High [address] [place] [address] Comment on above: Performed By: #### 4 6932 ####[facility] [address] [place] [address] [id number] [facility] Glucose [Mass/Vol] 199 mg/dL High [address] [place] [address] Comment on above: Performed By: #### 4 6932 ####[facility] [address] [place] [address] [id number] [facility] Glucose [Mass/Vol] 186 mg/dL High [address] [place] [address] Comment on above: Performed By: #### 4 6932 ####[facility] [address] [place] [address] [id number] [facility] Glucose [Mass/Vol] 158 mg/dL High [address] [place] [address] Comment on above: Performed By: #### 4 6932 ####[facility] [address] [place] [address] [id number] [facility] PT/INRon 10-10-2023 INR Coag (PPP) [Relative time] 1.5 {INR} High 0.8-1.1 [facility] Comment on above: Order Comment: Jennifer retana the induction phase of oral anticoagulation, the INR may not reflect the anticoagulation status of the patient. Therapeutic ranges for INR's are:Most clinical situations: INR 2.0-3.0Mechanical Prosthetic Valve: INR 2.5-3.5Critical: INR >5.0 Performed By: #### 4 8250 ####[facility] [address] [place], [place] [address]olas Wongchaowart, M.D. [id number] PT Coag (PPP) [Time] 18.2 s High 11.8-14.3 [facility] Comment on above: Order Comment: Jennifer retana the induction phase of oral anticoagulation, the INR may not reflect the anticoagulation status of the patient. Therapeutic ranges for INR's are:Most clinical situations: INR 2.0-3.0Mechanical Prosthetic Valve: INR 2.5-3.5Critical: INR >5.0 Performed By: #### 4 6391 ####[facility] [address] [place] [address] 23630 Glenn Gudino M.D. [id number] TRIGLYCERIDESon 10-10-2023 Triglyceride [Mass/Vol] 111 mg/dL Normal 30-150 [facility] Comment on above: Performed By: #### 4 6606 ####[facility] [address] [place] [address] 50863 Glenn Gudino M.D. [id number] XR CHEST PA/APon 10-10-2023 XR CHEST PA/AP Normal [facility] Comment on above: Order Comment: Injur y/Trauma or Illness?:Illness/OtherHow long have you had these symptoms (acute/chronic)?:UnknownReason for exam?:ETT placementHistory of cancer?:uSurgeries, chemotherapy, or radiation?:uType of Exam?:UnknownAdditional signs and symptoms?:no ABORH VERIFICATIONon 024 ABO and Rh group Nom (Bld) Blood group O Rh(D) positive [facility] ABO and Rh group Nom (Bld) ABO/Rh Verification [facility] Comment on above: Result Comment: Romi ent's ABO/Rh is verified. APTTon 10-09-2023 aPTT Coag (Bld) [Time] 36 s High 23-34 [facility] Comment on above: Order Comment: Thera peutic range for APTT's is 68 - 104 seconds Performed By: #### 4 5113 #### LAB [address] [place], [place] [address] Jaron Méndez M.D. [id number] BASIC METABOLIC PANELon 05- Anion gap [Moles/Vol] 14 mmol/L Normal 10-20 [facility] Comment on above: Order Comment: [facility] has implemented the eGFR calculation approach that does not have a coefficient for race that conforms to the NKF-ASN Task Force Recommendations. Performed By: #### 4 6124 #### LAB [address] [place] [address] Jaron Méndez M.D. [id number] Calcium [Mass/Vol] 8.6 mg/dL Normal 8.4-10.2 [facility] Comment on above: Order Comment: [facility] has implemented the eGFR calculation approach that does not have a coefficient for race that conforms to the NKF-ASN Task Force Recommendations. Performed By: #### 4 6124 #### [address] [address] Jaron Méndez M.D. [id number] Chloride [Moles/Vol] 95 mmol/L Low 98-108 [facility] Comment on above: Order Comment: [facility] has implemented the eGFR calculation approach that does not have a coefficient for race that conforms to the NKF-ASN Task Force Recommendations. Performed By: #### 4 6124 #### [address] [address] Jaron Méndez M.D. [id number] Creatinine [Mass/Vol] 1.80 mg/dL High 0.60-1.10 [facility] Comment on above: Order Comment: [facility] has implemented the eGFR calculation approach that does not have a coefficient for race that conforms to the NKF-ASN Task Force Recommendations. Performed By: #### 4 6124 #### LAB [address] [place] [address] Jaron Méndez M.D. [id number] EGFR 32 mL/min/1.73 m2 Low >=60 [facility] Comment on above: Order Comment: [facility] has implemented the eGFR calculation approach that does not have a coefficient for race that conforms to the NKF-ASN Task Force Recommendations. Result Comment: Joi mated GFR was calculated using the 2020 CKD-EPI creatinine equation. Performed By: #### 4 6124 #### LAB [address] [place] [address] Jaron Méndez M.D. [id number] Glucose [Mass/Vol] 131 mg/dL High 65-99 [facility] Comment on above: Order Comment: [facility] has implemented the eGFR calculation approach that does not have a coefficient for race that conforms to the NKF-ASN Task Force Recommendations. Performed By: #### 4 6124 #### SH [address] [address] Jaron Méndez M.D. [id number] HCO3 (Bld) [Moles/Vol] 23 mmol/L Normal 21-32 [facility] Comment on above: Order Comment: [facility] has implemented the eGFR calculation approach that does not have a coefficient for race that conforms to the NKF-ASN Task Force Recommendations. Performed By: #### 4 6124 #### SH [address] [address] Jaron Méndez M.D. [id number] Potassium [Moles/Vol] 4.1 mmol/L Normal 3.5-5.1 [facility] Comment on above: Order Comment: [facility] has implemented the eGFR calculation approach that does not have a coefficient for race that conforms to the NKF-ASN Task Force Recommendations. Performed By: #### 4 6124 #### LAB [address] [place] [address] Jaron Méndez M.D. [id number] Sodium [Moles/Vol] 128 mmol/L Low 135-145 [facility] Comment on above: Order Comment: [facility] has implemented the eGFR calculation approach that does not have a coefficient for race that conforms to the NKF-ASN Task Force Recommendations. Performed By: #### 4 6124 #### [address] [address] Jaron Méndez M.D. [id number] Urea nitrogen [Mass/Vol] 46 mg/dL High 8-25 [facility] Comment on above: Order Comment: [facility] has implemented the eGFR calculation approach that does not have a coefficient for race that conforms to the NKF-ASN Task Force Recommendations. Performed By: #### 4 6124 #### [facility] LAB [address] [place] [address] Jaron Méndez M.D. [id number] Urea nitrogen/Creatinine [Mass ratio] 25.6 mg/mg High 10.0-20.0 [facility] Comment on above: Order Comment: [facility] has implemented the eGFR calculation approach that does not have a coefficient for race that conforms to the NKF-ASN Task Force Recommendations. Performed By: #### 4 6124 #### [facility] LAB [address] [place] [address] Jaron Méndez M.D. [id number] CBC WITH AUTO DIFFERENTIALon 10-09-2023 BASOPHILS ABSOLUTE COUNT 0.01 K/mcL Normal 0.00-0.30 [facility] Comment on above: Performed By: #### 4 6391 #### [facility] LAB [address] [place] [address] Jaron Méndez M.D. [id number] Basophils/100 WBC (Bld) 0.0 % Normal [facility] Comment on above: Performed By: #### 4 6391 #### SH [address] [address] Jaron Méndez M.D. [id number] Eosinophils (Bld) [#/Vol] 0.00 10*3/uL Normal 0.00-0.50 [facility] Comment on above: Performed By: #### 4 6391 #### [facility] [address] [place] [address] Jaron Méndez M.D. [id number] Eosinophils/100 WBC (Bld) 0.0 % Normal [facility] Comment on above: Performed By: #### 4 6391 #### [facility] LAB [address] [place] [address] Jaron Méndez M.D. [id number] Erythrocyte distribution width (RBC) [Ratio] 16.3 % High 11.6-14.8 [facility] Comment on above: Performed By: #### 4 6391 #### [facility] LAB [address] [place] [address] Jaron Méndez M.D. [id number] Hematocrit (Bld) [Volume fraction] 22.3 % Low 36.0-46.0 [facility] Comment on above: Performed By: #### 4 6391 #### [facility] LAB [address] [place] [address] Jaron Méndez M.D. [id number] Hemoglobin (Bld) [Mass/Vol] 7.2 g/dL Low 12.0-16.0 [facility] Comment on above: Performed By: #### 4 6391 #### [facility] [address] [place] [address] Jaron Méndez M.D. [id number] IG ABSOLUTE 0.33 K/mcL High 0.00-0.30 [facility] Comment on above: Performed By: #### 4 6391 #### [facility] [address] [place] [address] Jaron Méndez M.D. [id number] IG PERCENT 1.40 % [facility] Comment on above: Result Comment: The IG parameter is the percentage of metamyelocytes, myelocytes and promyelocytes. An immature granulocyte count (IG) of 1% or more suggests the possibility of infection, an IG count of 3% is very likely related to an infection. Performed By: #### 4 6391 #### [facility] [address] [place] [address] Jaron Méndez M.D. [id number] Lymphocytes (Bld) [#/Vol] 1.27 10*3/uL Normal 0.90-4.00 [facility] Comment on above: Performed By: #### 4 6391 #### [facility] LAB [address] [place] [address] Jaron Méndez M.D. [id number] Lymphocytes/100 WBC (Bld) 5.6 % Normal [facility] Comment on above: Performed By: #### 4 6391 #### [facility] LAB [address] [place] [address] Jaron Méndez M.D. [id number] MCH (RBC) [Entitic mass] 27.7 pg Normal 26.0-34.0 [facility] Comment on above: Performed By: #### 4 6391 #### [facility] LAB [address] [place] [address] Jaron Méndez M.D. [id number] MCV (RBC) [Entitic vol] 85.8 fL Normal 80.0-100.0 [facility] Comment on above: Performed By: #### 4 6391 #### [facility] LAB [address] [place], [place] [address] Jaron Méndez M.D. [id number] MEAN CORPUSCULAR HEMOGLOBIN CONC 32.3 g/dL Normal 31.0-37.0 [facility] Comment on above: Performed By: #### 4 6391 #### [facility] [address] [place] [address] Jaron Méndez M.D. [id number] Monocytes (Bld) [#/Vol] 1.96 10*3/uL High 0.30-0.90 [facility] Comment on above: Performed By: #### 4 6391 #### [facility] LAB [address] [place], [place] [address] Jaron Méndez M.D. [id number] Monocytes/100 WBC (Bld) 8.6 % Normal [facility] Comment on above: Performed By: #### 4 6391 #### [facility] LAB [address] [place] [address] Jaron Méndez M.D. [id number] NEUTROPHILS ABSOLUTE COUNT 19.22 K/mcL High 1.70-7.00 [facility] Comment on above: Performed By: #### 4 6391 #### [facility] LAB [address] [place], [place] [address] Jaron Méndez M.D. [id number] Neutrophils/100 WBC (Bld) 84.4 % Normal [facility] Comment on above: Performed By: #### 4 6391 #### [facility] LAB [address] [place], [place] [address] Jaron Méndez M.D. [id number] Platelet mean volume (Bld) [Entitic vol] 9.6 fL Normal 9.4-12.4 [facility] Comment on above: Performed By: #### 4 6391 #### [facility] LAB [address] [place] [address] Jaron Méndez M.D. [id number] Platelets (Bld) [#/Vol] 389 10*3/uL Normal 150-400 [facility] Comment on above: Performed By: #### 4 6391 #### [facility] LAB [address] [place] [address] Jaron Méndez M.D. [id number] RBC (Bld) [#/Vol] 2.60 10*6/uL Low 4.00-5.20 [facility] Comment on above: Performed By: #### 4 6391 #### [facility] LAB [address] [place] [address] Jaron Méndez M.D. [id number] WBC (Bld) [#/Vol] 22.79 10*3/uL High 4.50-11.00 [facility] Comment on above: Performed By: #### 4 6391 #### [facility] LAB [address] [place] [address] Jaron Méndez M.D. [id number] COVID-19/INFLUENZA A,B MOLEC [facility] 10-09-2023 SARS-CoV-2 (COVID-19) Ab IA Ql INFLUENZA A (CEPHEID) Not Detected INFLUENZA B (CEPHEID) Not Detected SARS-COV-2 (CEPHEID) Not Detected This test was performed under the FDA's Emergency Use Authorization (EUA). Testing was performed using the Xpert Xpress SARS-CoV-2/Flu/RSV plus RT-PCR Cepheid assay on the [employer] Xpress System. This test has not been approved for use in asymptomatic patients and its performance in this patient population has not been evaluated. Negative results do not rule out the presence of SARS-CoV-2/COVID-19. Fact sheets for this EUA can be found at the following links: For Healthcare Providers: https://www.fda.gov/media/ 911561/download For Patients: https://www.fda.gov/media/ 203151/download [facility] Comment on above: Performed By: #### L [id number] #### SH [address] [address] Jaron Méndez M.D. [id number] CT ABDOMEN PELVIS WITHOUT CO NTRASTon 10-09-2023 [...] on MonOctober 09, 2023 7:43:05 PM EDT [facility] Comment on above: Order Comment: Jennifer retana the induction phase of oral anticoagulation, the INR may not reflect the anticoagulation status of the patient. Therapeutic ranges for INR's are: Most clinical situations: INR 2.0-3.0 Mechanical Prosthetic Valve: INR 2.5-3.5 Critical: INR >5.0 CT ANGIOGRAM CHEST ABDOMEN P [facility] 10-09-2023 CT ANGIOGRAM CHEST ABDOMEN PELVIS EXAMINATION: [...] on MonOctober 09, 2023 9:59:46 PM EDT [facility] Comment on above: Order Comment: Jennifer retana the induction phase of oral anticoagulation, the INR may not reflect the anticoagulation status of the patient. Therapeutic ranges for INR's are: Most clinical situations: INR 2.0-3.0 Mechanical Prosthetic Valve: INR 2.5-3.5 Critical: INR >5.0 CT CHEST LOW DOSE LUNG JEANETTE BIRCH Ramila Guevara 10-09-2023 CT CHEST LOW [...] on MonOctober 10, 2023 1:59:01 PM EDT [facility] Comment on above: Order Comment: Injur y/Trauma or Illness?:Illness/Other How long have you had these symptoms (acute/chronic)?:Chronic Reason for exam?:current smoker, 39 pack yrs, History of deep venous thrombosis, Factor V Leiden mutation (HCC), Lung nodule seen on imaging study, Screening for malignant neoplasm of respiratory organ Type of Exam?:Initial Additional signs and symptoms?:. ED Prov Noteon 10-09-2023 ED Prov Note Normal [facility] ED Prov Note ED PROVIDER NOTE [facility] NAME: Scott Obregon AGE: 63 y.o. : 1960 VISIT DATE: 10/09/2023 CSN: [id number] PCP: Ying Quispe DO Chief Complaint Patient [...] Skin: Negative (more content not included)... Normal [facility] H AND Ney 10-09-2023 H AND P Normal [facility] HEPATIC FUNCTION PANELon Albumin [Mass/Vol] 2.3 g/dL Low 3.2-5.2 [facility] [facility] Comment on above: Performed By: #### 4 [id number] #### [facility] [address] [place] [address] Jaron Méndez M.D. [id number] ALP [Catalytic activity/Vol] 70 U/L Normal 40-150 [facility] Comment on above: Performed By: #### 4 5866 #### [facility] [address] [place] [address] Jaron Méndez M.D. [id number] ALT [Catalytic activity/Vol] 46 U/L Normal 14-65 [facility] Comment on above: Performed By: #### 4 5866 #### [facility] [address] [place] [address] Jaron Méndez M.D. [id number] AST [Catalytic activity/Vol] 55 U/L High 0-35 U/L [facility] Comment on above: Performed By: #### 4 5866 #### [facility] [address] [place] [address] Jaron Méndez M.D. [id number] Bilirubin [Mass/Vol] 0.6 mg/dL Normal 0.0-1.3 [facility] Comment on above: Performed By: #### 4 5866 #### LAB [address] [place] [address] Jaron Méndez M.D. [id number] Bilirubin.indirect [Mass/Vol] 0.3 mg/dL Normal 0.0-0.4 [facility] Comment on above: Performed By: #### 4 [id number] #### LAB [address] [place] [address] Jaron Méndez M.D. [id number] Protein [Mass/Vol] 7.2 g/dL Normal 6.0-8.0 [facility] Comment on above: Performed By: #### 4 [id number] #### LAB [address] [place] [address] Jaron Méndez M.D. [id number] MORPHOLOGYon 10-09-2023 OVAL SCAN Few [facility] Comment on above: Performed By: #### 4 6391 #### LAB [address] [place] [address] Jaron Méndez M.D. [id number] PLATELET ESTIMATE Normal Normal [facility] Comment on above: Performed By: #### 4 [id number] #### LAB [address] [place] [address] Jaron Méndez M.D. [id number] RBC MORPH SCAN See Comment [facility] Comment on above: Result Comment: RBC Indices confirmed with manual peripheral smear review. Performed By: #### 4 [id number] #### LAB [address] [place] [address] Jaron Méndez M.D. [id number] [facility] MR LUMBAR SPINE WITHOUT CONTRAST [...] on MonOctober 10, 2023 9:08:55 AM EDT [facility] Comment on above: Order Comment: Injur y/Trauma or Illness?:Illness/Other How long have you had these symptoms (acute/chronic)?:Acute Reason for exam?:lbp Type of Exam?:Initial Additional signs and symptoms?:none POC ABG SURG - RALSon 2023 BASE EXCESS, ARTERIAL ISTAT -6 Low -2-2 [facility] Comment on above: Order Comment: Criti cherrie result acted upon time of test. Test performed at bedside. Performed By: #### 4 [id number] ####[facility] POCT LAB [address] [place] [address] [id number] RMHPOC Glucose [Mass/Vol] 174 mg/dL High 65-99 [facility] Comment on above: Order Comment: Criti cherrie result acted upon time of test. Test performed at bedside. Performed By: #### 4 [id number] ####RM POCT LAB [address] [place] [address] [id number] RMHPOC HCO3 (Bld) [Moles/Vol] 19.6 mmol/L Low 22.0-26.0 [facility] Comment on above: Order Comment: Criti cherrie result acted upon time of test. Test performed at bedside. Performed By: #### 4 8771 ####RM POCT LAB [address] [place] [address] [id number] RMHPOC Hematocrit (Bld) [Volume fraction] 17 % Low 36-46 [facility] Comment on above: Order Comment: Criti cherrie result acted upon time of test. Test performed at bedside. Performed By: #### 4 [id number] ####[facility] POCT LAB [address] [place] [address] [id number] RMHPOC Hemoglobin (Bld) [Mass/Vol] 5.8 g/dL Off scale low 12.0-16.0 [facility] Comment on above: Order Comment: Criti cherrie result acted upon time of test. Test performed at bedside. Performed By: #### 4 [id number] ####[facility] POCT LAB [address] [place] [address] [id number] RMHPOC Oxygen saturation in Blood 100.0 % High 92.0-99.0 [facility] Comment on above: Order Comment: Criti cherrie result acted upon time of test. Test performed at bedside. Performed By: #### 4 [id number] ####[facility] POCT LAB [address] [place] [address] [id number] RMHPOC PCO2 ARTERIAL 38.7 mm Hg Normal 35.0-45.0 [facility] Comment on above: Order Comment: Criti cherrie result acted upon time of test. Test performed at bedside. Performed By: #### 4 [id number] ####[facility] POCT LAB [address] [place] [address] [id number] RMHPOC PH ARTERIAL 7.31 Low 7.35-7.45 [facility] Comment on above: Order Comment: Criti cherrie result acted upon time of test. Test performed at bedside. Performed By: #### 4 8711 ####RM POCT LAB [address] [place] [address] [id number] RMHPOC PO2 ARTERIAL 387 mm Hg High 80-100 [facility] Comment on above: Order Comment: Criti cherrie result acted upon time of test. Test performed at bedside. Performed By: #### 4 1985 ####RM POCT LAB [address] [place] [address] [id number] RMHPOC POC IONIZED CALCIUM 3.6 mg/dL Low 4.5-5.3 [facility] Comment on above: Order Comment: Criti cherrie result acted upon time of test. Test performed at bedside. Performed By: #### 4 [id number] ####RM POCT LAB [address] [place] [address] [id number] RMHPOC Potassium [Moles/Vol] 4.5 mmol/L Normal 3.5-5.1 [facility] Comment on above: Order Comment: Criti cherrie result acted upon time of test. Test performed at bedside. Performed By: #### 4 [id number] ####RM POCT LAB [address] [place] [address] [id number] RMHPOC Sodium [Moles/Vol] 130 mmol/L Low 135-145 [facility] Comment on above: Order Comment: Criti cherrie result acted upon time of test. Test performed at bedside. Performed By: #### 4 [id number] ####RM POCT LAB [address] [place] [address] [id number] RMHPOC BASE EXCESS, ARTERIAL ISTAT -7 Low -2-2 [facility] Comment on above: Performed By: #### 4 0975 ####RM POCT LAB [address] [place] [address] [id number] RMHPOC Glucose [Mass/Vol] 189 mg/dL High 65-99 [facility] Comment on above: Performed By: #### 4 [id number] ####RM POCT LAB [address] [place] [address] [id number] RMHPOC HCO3 (Bld) [Moles/Vol] 18.8 mmol/L Low 22.0-26.0 [facility] Comment on above: Performed By: #### 4 8764 ####RM POCT LAB [address] [place] [address] [id number] RMHPOC PCO2 ARTERIAL 39.9 mm Hg Normal 35.0-45.0 [facility] Comment on above: Performed By: #### 4 6120 ####RM POCT LAB [address] [place] [address] [id number] RMHPOC PH ARTERIAL 7.28 Low 7.35-7.45 [facility] Comment on above: Performed By: #### 4 [id number] ####RM POCT LAB [address] [place] [address] [id number] RMHPOC PO2 ARTERIAL > High 80-100 [facility] Comment on above: Performed By: #### 4 [id number] ####RM POCT LAB [address] [place] [address] [id number] RMHPOC POC HCT < Low 36-46 [facility] Comment on above: Performed By: #### 4 [id number] ####RM POCT LAB [address] [place] [address] [id number] RMHPOC POC IONIZED CALCIUM 3.8 mg/dL Low 4.5-5.3 [facility] Comment on above: Performed By: #### 4 [id number] ####[facility] POCT LAB [address] [place] [address] [id number] RMHPOC Potassium [Moles/Vol] 4.1 mmol/L Normal 3.5-5.1 [facility] Comment on above: Performed By: #### 4 [id number] ####RM POCT LAB [address] [place] [address] [id number] RMHPOC Sodium [Moles/Vol] 130 mmol/L Low 135-145 [facility] Comment on above: Performed By: #### 4 [id number] ####RM POCT LAB [address] [place] [address] [id number] RMHPOC [facility] ACT CELITE 246 seconds Normal [facility] Comment on above: Performed By: #### 4 8122 ####RM POCT LAB [address] [place] [address] [id number] RMHPOC POC [facility]EPOC[facility] BASE EXCESS, VENOUS -7.0 Low -2.0-2.0 [facility] Comment on above: Order Comment: [facility] has implemented the eGFR calculation approach that does not have a coefficient for race that conforms to the NKF-ASN Task Force Recommendations. Performed By: #### P [id number] ####[facility] [address] [place] [address] Glenn Gudino M.D. [id number] CALCIUM IONIZED 3.9 mg/dL Low 4.5-5.3 [facility] Comment on above: Order Comment: [facility] has implemented the eGFR calculation approach that does not have a coefficient for race that conforms to the NKF-ASN Task Force Recommendations. Performed By: #### P [id number] ####[facility] [address] [place], [place] [address] Glenn Gudino M.D. [id number] Chloride [Moles/Vol] 102 mmol/L Normal 98-108 [facility] Comment on above: Order Comment: [facility] has implemented the eGFR calculation approach that does not have a coefficient for race that conforms to the NKF-ASN Task Force Recommendations. Performed By: #### P [id number] ####[facility] [address] [place] [address] Glenn Gudino M.D. [id number] CO2 [Moles/Vol] 18 mmol/L Low 21-32 [facility] Comment on above: Order Comment: [facility] has implemented the eGFR calculation approach that does not have a coefficient for race that conforms to the NKF-ASN Task Force Recommendations. Performed By: #### P [id number] ####[facility] [address] [place] [address]449 Glenn Gudino M.D. [id number] Creatinine [Mass/Vol] 1.87 mg/dL High 0.60-1.20 [facility] Comment on above: Order Comment: [facility] has implemented the eGFR calculation approach that does not have a coefficient for race that conforms to the NKF-ASN Task Force Recommendations. Performed By: #### P [id number] ####[facility] [address] [place] [address] 69564 Glenn Gudino M.D. [id number] Glucose [Mass/Vol] 119 mg/dL High 65-99 [facility] Comment on above: Order Comment: [facility] has implemented the eGFR calculation approach that does not have a coefficient for race that conforms to the NKF-ASN Task Force Recommendations. Performed By: #### P [id number] ####[facility] [address] [place] [address] Glenn Gudino M.D. [id number] Hematocrit (Bld) [Volume fraction] 24 % Low 36-46 [facility] Comment on above: Order Comment: [facility] has implemented the eGFR calculation approach that does not have a coefficient for race that conforms to the NKF-ASN Task Force Recommendations. Performed By: #### P [id number] ####[facility] [address] [place] [address]50 Glenn Gudino M.D. [id number] HEMOGLOBIN, CALCULATED 8.1 g/dL Low 12.0-16.0 [facility] Comment on above: Order Comment: [facility] has implemented the eGFR calculation approach that does not have a coefficient for race that conforms to the NKF-ASN Task Force Recommendations. Performed By: #### P [id number] ####[facility] [address] [place] [address] Glenn Gudino M.D. [id number] Oxygen saturation in Blood 80.9 % High 40.0-70.0 [facility] Comment on above: Order Comment: [facility] has implemented the eGFR calculation approach that does not have a coefficient for race that conforms to the NKF-ASN Task Force Recommendations. Performed By: #### P [id number] ####[facility] [address] [place] [address] Glenn Gudino M.D. [id number] PCO2 VENOUS 32.0 mm Hg Low 41.0-51.0 [facility] Comment on above: Order Comment: [facility] has implemented the eGFR calculation approach that does not have a coefficient for race that conforms to the NKF-ASN Task Force Recommendations. Performed By: #### P [id number] ####[facility] [address] [place] [address] 47262 Glenn Gudino M.D. [id number] PH VENOUS 7.35 Normal 7.32-7.42 [facility] Comment on above: Order Comment: [facility] has implemented the eGFR calculation approach that does not have a coefficient for race that conforms to the NKF-ASN Task Force Recommendations. Performed By: #### P [id number] ####[facility] [address] [place], [place] [address] Glenn Gudino M.D. [id number] PO2 VENOUS 47 mm Hg High 25-40 [facility] Comment on above: Order Comment: [facility] has implemented the eGFR calculation approach that does not have a coefficient for race that conforms to the NKF-ASN Task Force Recommendations. Performed By: #### P [id number] ####[facility] [address] [place] [address] 37207 Glenn Gudino M.D. [id number] POC GFR 30 mL/min/1.73 m2 Low >=60 [facility] Comment on above: Order Comment: [facility] has implemented the eGFR calculation approach that does not have a coefficient for race that conforms to the NKF-ASN Task Force Recommendations. Result Comment: Joi mated GFR was calculated using the 2020 CKD-EPI creatinine equation. Performed By: #### P [id number] ####[facility] [address] [place] [address]16 Glenn Gudino M.D. [id number] POC LACTATE 2.8 mmol/L High 0.6-2.0 [facility] Comment on above: Order Comment: [facility] has implemented the eGFR calculation approach that does not have a coefficient for race that conforms to the NKF-ASN Task Force Recommendations. Performed By: #### P [id number] ####[facility] [address] [place], [place] [address] Glenn Gudino M.D. [id number] Potassium [Moles/Vol] 4.4 mmol/L Normal 3.5-5.1 [facility] Comment on above: Order Comment: [facility] has implemented the eGFR calculation approach that does not have a coefficient for race that conforms to the NKF-ASN Task Force Recommendations. Performed By: #### P [id number] ####[facility] [address] [place], [place] [address] Glenn Gudino M.D. [id number] Sodium [Moles/Vol] 130 mmol/L Low 135-145 [facility] Comment on above: Order Comment: [facility] has implemented the eGFR calculation approach that does not have a coefficient for race that conforms to the NKF-ASN Task Force Recommendations. Performed By: #### P [id number] ####[facility] [address] [place], [place] [address] Glenn Gudino M.D. [id number] Urea nitrogen [Mass/Vol] 47 mg/dL High 8-25 [facility] Comment on above: Order Comment: [facility] has implemented the eGFR calculation approach that does not have a coefficient for race that conforms to the NKF-ASN Task Force Recommendations. Performed By: #### P [id number] ####[facility] [address] [place] [address] Glenn Gudino M.D. [id number] PT/INRon 10-09-2023 INR Coag (PPP) [Relative time] 1.4 {INR} High 0.8-1.1 [facility] Comment on above: Order Comment: Jennifer retana the induction phase of oral anticoagulation, the INR may not reflect the anticoagulation status of the patient. Therapeutic ranges for INR's are:Most clinical situations: INR 2.0-3.0Mechanical Prosthetic Valve: INR 2.5-3.5Critical: INR >5.0 Performed By: #### 4 [id number] ####[facility] [address] [place] [address] Glenn Gudino M.D. [id number] PT Coag (PPP) [Time] 17.3 s High 11.8-14.3 [facility] Comment on above: Order Comment: Jennifer retana the induction phase of oral anticoagulation, the INR may not reflect the anticoagulation status of the patient. Therapeutic ranges for INR's are:Most clinical situations: INR 2.0-3.0Mechanical Prosthetic Valve: INR 2.5-3.5Critical: INR >5.0 Performed By: #### 4 [id number] ####[facility] [address] [place] [address] Glenn Gudino M.D. [id number] INR Coag (PPP) [Relative time] 1.3 {INR} High 0.8-1.1 [facility] Comment on above: Order Comment: Jennifer the induction phase of oral anticoagulation, the INR may not reflect the anticoagulation status of the patient. Therapeutic ranges for INR's are: Most clinical situations: INR 2.0-3.0 Mechanical Prosthetic Valve: INR 2.5-3.5 Critical: INR >5.0 Performed By: #### 4 [id number] #### [place] [address] Jaron Méndez M.D. [id number] PT Coag (PPP) [Time] 16.3 s High 11.8-14.3 [facility] Comment on above: Order Comment: Jennifer the induction phase of oral anticoagulation, the INR may not reflect the anticoagulation status of the patient. Therapeutic ranges for INR's are: Most clinical situations: INR 2.0-3.0 Mechanical Prosthetic Valve: INR 2.5-3.5 Critical: INR >5.0 Performed By: #### 4 [id number] #### [facility] [address] [place] [address] Jaron Méndez M.D. [id number] T4, FREEon 10-09-2023 Free T4 [Mass/Vol] 1.4 ng/dL Normal 0.7-1.7 [facility] Comment on above: Performed By: #### 4 [id number] #### [facility] [address] [place] [address] Jaron Méndez M.D. [id number] TROPONINon 10-09-2023 BASELINE TROPONIN I NG/L 69 ng/L Off scale high <=59 [facility] Comment on above: Performed By: #### 4 6608 #### LAB [address] [place] [address] Jaron Méndez M.D. [id number] TROPONIN I INTERPRETATION Possible acute cardiac injury. Normal [facility] Comment on above: Performed By: #### 4 6608 #### [facility] LAB [address] [place] [address] Jaron Méndez M.D. [id number] TSHon 10-09-2023 TSH Qn 8.26 m[IU]/L High 0.27-4.20 [facility] Comment on above: Performed By: #### 4 6613 #### LAB [address] [place] [address] Jaron Méndez M.D. [id number] TYPE AND SCREENon 10-09-2023 TYPE AND SCREEN ABORH: O Positive AB SCREEN: Negative EXPIRATION DATE: 10/12/2023 23:59 EST [facility] Comment on above: Performed By: #### 4 6619 ####[facility] [address] [place] [address] Nurys Oneill MD [id number] COUNT INCLUDES THE [facility] TYPE AND SCREEN ABORH: O Positive AB SCREEN: Negative EXPIRATION DATE: 10/12/2023 23:59 EST [facility] XR CHEST PA/APon 10-09-2023 XR CHEST PA/AP [...] on MonOctober 09, 2023 4:48:26 PM EDT Normal [facility] Comment on above: Order Comment: Jennifer retana the induction phase of oral anticoagulation, the INR may not reflect the anticoagulation status of the patient. Therapeutic ranges for INR's are: Most clinical situations: INR 2.0-3.0 Mechanical Prosthetic Valve: INR 2.5-3.5 Critical: INR >5.0 INR Coag (Bld) [Relative keron e]on 09-07-2023 Interpretation and review of laboratory results Abnormal [facility] POC INRon 09-07-2023 INR Coag (Bld) [Relative time] 2.8 {INR} Abnormal 0.8 - 1.1 [facility] INR Coag (Bld) [Relative keron e]on 08-10-2023 Interpretation and review of laboratory results Abnormal [facility] POC INRon 08-10-2023 INR Coag (Bld) [Relative time] 2.3 {INR} Abnormal 0.8 - 1.1 [facility] INR Coag (Bld) [Relative keron e]on 07-13-2023 Interpretation and review of laboratory results Abnormal [facility] POC INRon 07-13-2023 INR Coag (Bld) [Relative time] 2.5 {INR} Abnormal 0.8 - 1.1 [facility] XR LUMBAR SPINE 2-3 VIEWS (S TANDARD)on [...] MonJul 04, 2023 4:04:30 PM EST Normal [facility] Comment on above: Order Comment: Injur y/Trauma or Illness?:Illness/Other How long have you had these symptoms (acute/chronic)?:Chronic Reason for exam?:low back pain History of cancer?:u Surgeries, chemotherapy, or radiation?:u Type of Exam?:Initial Additional signs and symptoms?:right leg weakness XR Lumbar spine 2 or 3 Views on 07-04-2023 L5-S1 disc disease. Workstation ID: [id number] [facility] EXAMINATION: XR LUMBAR SPINE 2-3 VIEWS (STANDARD) [...] severe loss of disc height at L5-S1. Ying Anand MD - 07/04/2023 EXAMINATION: XR LUMBAR SPINE [...] IMPRESSION: L5-S1 disc disease. Workstation ID: [id number] [facility] Radiology Study observation (narrative) [facility] XR Lumbar spine 2 or 3 Views Ordered By: Ying Sewell on 07-04-2023 [facility] Work Phone: INR Coag (Bld) [Relative keron e]on 06-07-2023 Interpretation and review of laboratory results Abnormal [facility] POC INRon 06-07-2023 INR Coag (Bld) [Relative time] 2.1 {INR} Abnormal 0.8 - 1.1 [facility] INR Coag (Bld) [Relative keron e]on 05-03-2023 Interpretation and review of laboratory results Abnormal [facility] POC INRon 05-03-2023 INR Coag (Bld) [Relative time] 2.1 {INR} Abnormal 0.8 - 1.1 [facility] INR Coag (Bld) [Relative keron e]on 04-05-2023 Interpretation and review of laboratory results Abnormal [facility] POC INRon 04-05-2023 INR Coag (Bld) [Relative time] 2.6 {INR} Abnormal 0.8 - 1.1 [facility] INR Coag (Bld) [Relative keron e]on 03-08-2023 Interpretation and review of laboratory results Abnormal [facility] POC INRon 03-08-2023 INR Coag (Bld) [Relative time] 2.6 {INR} Abnormal 0.8 - 1.1 [facility] INR Coag (Bld) [Relative keron e]on 02-15-2023 Interpretation and review of laboratory results Abnormal [facility] POC INRon 02-15-2023 INR Coag (Bld) [Relative time] 2.8 {INR} Abnormal 0.8 - 1.1 [facility] MM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 [id number]: [id number] Director: Jaron Méndez M.D. Cholesterol in VLDL mass conc 24 mg/dL Normal 5-40 [facility] Comment on above: Performed By: #### T SH, LIPID ####Unless otherwise noted, all testing performed by [address] [id number]: [id number] Director: Jaron Méndez M.D.#### HEPCABS ####Unless otherwise noted, all testing performed by [address] [id number]: [id number] Director: Jaron Méndez M.D. Cholesterol to HDL Ratio 5.2 {ratio} High 3.2-4.5 [facility] Comment on above: Result Comment: Funmilayo nettie Coronary Heart Disease Risk Factor (CHDRF):Average risk= 4.41/2 Average risk= 3.32 times Average risk= 7.1 Performed By: #### T SH, LIPID ####Unless otherwise noted, all testing performed by [address] [id number]: [id number] Director: Jaron Méndez M.D.#### HEPCABS ####Unless otherwise noted, all testing performed by [address] [id number]: [id number] Director: Jaron Méndez M.D. HDL Cholesterol 43 mg/dL Normal 40-59 [facility] Comment on above: Performed By: #### T SH, LIPID ####Unless otherwise noted, all testing performed by [address] [id number]: [id number] Director: Jaron Méndez M.D.#### HEPCABS ####Unless otherwise noted, all testing performed by [address] [id number]: [id number] Director: Jaron Méndez M.D. Interpretation and review of laboratory results Abnormal Invalid Interpretation Code [facility] LDL Cholesterol 156 mg/dL High 10 - 150 mg/dL [facility] LDL Cholesterol 156 mg/dL High 10-150 [facility] Comment on above: Performed By: #### T SH, LIPID ####Unless otherwise noted, all testing performed by [address] [id number]: [id number] Director: Jaron Méndez M.D.#### HEPCABS ####Unless otherwise noted, all testing performed by [address] [id number]: [id number] Director: Jaron Méndez M.D. Triglyceride 118 mg/dL Normal 30-150 [facility] Comment on above: Performed By: #### T SH, LIPID ####Unless otherwise noted, all testing performed by [address] [id number]: [id number] Director: Jaron Méndez M.D.#### HEPCABS ####Unless otherwise noted, all testing performed by [address] [id number]: [id number] Director: Jaron Méndez M.D. VLDL 24 mg/dL Invalid Interpretation Code 5 - 40 mg/dL [facility] TSHon 09-28-2017 Thyroid stimulating hormone (TSH) 2.63 uIU/mL Invalid Interpretation Code 0.32 - 5.00 [facility] Thyroid stimulating hormone (TSH) 2.63 uIU/mL Normal 0.32-5.00 [facility] Comment on above: Result Comment: Samp les from patients routinely receiving high dose biotin therapy(100-300 mg/day) may show falsely decreased results. Please correlateclinically. Performed By: #### T SH, LIPID ####Unless otherwise noted, all testing performed by [address] [id number]: [id number] Director: Jaron Méndez M.D.#### HEPCABS ####Unless otherwise noted, all testing performed by [address] [id number]: [id number] Director: Jaron Méndez M.D. XR Lumbar Spine 2-3 Views (Antonio denisannakenan)on 09-05-2017 INR in blood by coagulation X-ray [...] findings otherwise Invalid Interpretation Code [facility] Vital Signs Date Time Vital Sign Value Performing Clinician Facility 09-15-2024 07:00-0400 Body temperature 98.6 [degF] Dr. Ethan Rodriguez MD Work Phone: [facility] 09-15-2024 07:00-0400 Diastolic blood pressure 85 mm[Hg] Dr. Ethan Rodriguez MD Work Phone: [facility] 09-15-2024 07:00-0400 Heart rate 100 /min Dr. Ethan Rodriguez MD Work Phone: [facility] 09-15-2024 07:00-0400 Inhaled oxygen flow rate 4 L/min Dr. Ethan Rodriguez MD Work Phone: [facility] 09-15-2024 07:00-0400 Respiratory rate 20 /min Dr. Ethan Rodriguez MD Work Phone: [facility] 09-15-2024 07:00-0400 SaO2% (BldA) [Mass fraction] 96 % Dr. Ethan Rodriguez MD Work Phone: [facility] 09-15-2024 07:00-0400 Systolic blood pressure 145 mm[Hg] Dr. Ethan Rodriguez MD Work Phone: [facility] 09-15-2024 04:35-0400 Inhaled oxygen concentration 10 % Dr. Ethan Rodriguez MD Work Phone: [facility] 09-15-2024 04:23-0400 Body height 182.[address] Ethan Rodriguez MD Work Phone: 9(890)718-639950 [place] [address] 09-15-2024 04:23-0400 Body mass index (BMI) [Ratio] 16.5 kg/m2 Dr. Ethan Rodriguez MD Work Phone: 7(773)540-033151 [place] [address] 09-15-2024 04:23-0400 Body weight 55.[address] Ethan Rodriguez MD Work Phone: 1(607)905-061821 [place] [address] 08-31-2024 16:15-0400 Inhaled oxygen flow rate 3 L/min Dr. Ethan Rodriguez MD Work Phone: 1(166)811-965121 [place] [address] 08-31-2024 16:15-0400 SaO2% (BldA) [Mass fraction] 96 % Dr. Ethan Rodriguez MD Work Phone: 5(923)303-815321 [place] [address] 08-31-2024 14:00-0400 Body temperature 97 [degF] Dr. Ethan Rodriguez MD Work Phone: 3(023)205-017121 [place] [address] 08-31-2024 14:00-0400 Diastolic blood pressure 71 mm[Hg] Dr. Ethan Rodriguez MD Work Phone: 8(577)655-246221 [place] [address] 08-31-2024 14:00-0400 Heart rate 70 /min Dr. Ethan Rodriguez MD Work Phone: 8(818)349-602821 [place] [address] 08-31-2024 14:00-0400 Respiratory rate 16 /min Dr. Ethan Rodriguez MD Work Phone: 1(964)125-574921 [place] [address] 08-31-2024 14:00-0400 Systolic blood pressure 126 mm[Hg] Dr. Ethan Rodriguez MD Work Phone: 4(591)097-939151 [place] [address] 08-31-2024 09:38-0400 Body weight 54.[address] Ethan Rodriguez MD Work Phone: 7(436)307-285221 [place] [address] 08-17-2024 09:46-0400 Body temperature 97.8 [degF] Dr. Ethan Rodriguez MD Work Phone: 4(847)696-571921 [place] [address] 08-17-2024 09:46-0400 Diastolic blood pressure 96 mm[Hg] Dr. Ethan Rodriguez MD Work Phone: 0(597)355-420821 [place] [address] 08-17-2024 09:46-0400 Heart rate 107 /min Dr. Ethan Rodriguez MD Work Phone: [facility] 08-17-2024 09:46-0400 Inhaled oxygen flow rate 2 L/min Dr. Ethan Rodriguez MD Work Phone: [facility] 08-17-2024 09:46-0400 Respiratory rate 18 /min Dr. Ethan Rodriguez MD Work Phone: 6(056)794-842151 [place] [address] 08-17-2024 09:46-0400 SaO2% (BldA) [Mass fraction] 97 % Dr. Ethan Rodriguez MD Work Phone: 3(397)464-268079 [address] 08-17-2024 09:46-0400 Systolic blood pressure 162 mm[Hg] Dr. Ethan Rodriguez MD Work Phone: 6(683)368-811321 [place] [address] 08-17-2024 05:07-0400 Body mass index (BMI) [Ratio] 14.6 kg/m2 Dr. Ethan Rodriguez MD Work Phone: 4(367)089-882121 [place] [address] 08-17-2024 05:07-0400 Body weight [address] Ethan Rodriguez MD Work Phone: 2(394)711-055921 [place] [address] 08-14-2024 14:07-0400 Body height 182.[address] Ethan Rodriguez MD Work Phone: 6(830)599-506021 [place] [address] 08-14-2024 12:20-0400 Body temperature 97.8 [degF] Dr. Ethan Rodriguez MD Work Phone: 8(740)480-017279 [address] 08-14-2024 12:20-0400 Diastolic blood pressure 70 mm[Hg] Dr. Ethan Rodriguez MD Work Phone: 7(052)316-893179 [address] 08-14-2024 12:20-0400 Heart rate 90 /min Dr. Ethan Rodriguez MD Work Phone: [facility] 08-14-2024 12:20-0400 Respiratory rate 17 /min Dr. Ethan Rodriguez MD Work Phone: 9(432)940-601551 [place] [address] 08-14-2024 12:20-0400 SaO2% (BldA) [Mass fraction] 94 % Dr. Ethan Rodriguez MD Work Phone: [facility] 08-14-2024 12:20-0400 Systolic blood pressure 95 mm[Hg] Dr. Ethan Rodriguez MD Work Phone: [facility] 08-14-2024 11:00-0400 Inhaled oxygen flow rate 4 L/min Dr. Ethan Rodriguez MD Work Phone: 1(348)848-706351 [place] [address] 08-14-2024 07:25-0400 Body height 182.[address] Ethan Rodriguez MD Work Phone: 9(088)751-199821 [place] [address] 08-14-2024 07:25-0400 Body mass index (BMI) [Ratio] 16.7 kg/m2 Dr. Ethan Rodriguez MD Work Phone: 0(226)882-218151 [place] [address] 08-14-2024 07:25-0400 Body weight [address] Ethan Rodriguez MD Work Phone: 9(665)975-457051 [place] [address] 08-13-2024 15:30-0400 Inhaled oxygen flow rate 3 L/min Dr. Ethan Rodriguez MD Work Phone: [facility] 08-13-2024 14:36-0400 Body temperature 99 [degF] Dr. Ethan Rodriguez MD Work Phone: [facility] 08-13-2024 14:36-0400 Diastolic blood pressure 69 mm[Hg] Dr. Ethan Rodriguez MD Work Phone: [facility] 08-13-2024 14:36-0400 Heart rate 89 /min Dr. Ethan Rodriguez MD Work Phone: [facility] 08-13-2024 14:36-0400 Respiratory rate 18 /min Dr. Ethan Rodriguez MD Work Phone: [facility] 08-13-2024 14:36-0400 SaO2% (BldA) [Mass fraction] 100 % Dr. Ethan Rodriguez MD Work Phone: [facility] 08-13-2024 14:36-0400 Systolic blood pressure 144 mm[Hg] Dr. Ethan Rodriguez MD Work Phone: [facility] 08-12-2024 12:30-0400 Body mass index (BMI) [Ratio] 11.9 kg/m2 Dr. Ethan Rodriguez MD Work Phone: [facility] 08-12-2024 12:30-0400 Body weight [address] Ethan Rodriguez MD Work Phone: 6(726)624-930751 [place] [address] 08-06-2024 11:09-0400 Inhaled oxygen concentration 95 % Dr. Ethan Rodriguez MD Work Phone: 6(111)836-740679 [address] 07-29-2024 17:48-0500 Body temperature 98.5 [degF] Dr. Ethan Rodriguez MD Work Phone: 0(469)918-995379 [address] 07-29-2024 17:48-0500 Diastolic blood pressure 72 mm[Hg] Dr. Ethan Rodriguez MD Work Phone: 7(895)907-300921 [place] [address] 07-29-2024 17:48-0500 Heart rate 78 /min Dr. Ethan Rodriguez MD Work Phone: 0(445)489-296579 [address] 07-29-2024 17:48-0500 Respiratory rate 18 /min Dr. Ethan Rodriguez MD Work Phone: 8(580)032-431879 [address] 07-29-2024 17:48-0500 SaO2% (BldA) [Mass fraction] 97 % Dr. Ethan Rodriguez MD Work Phone: 7(676)956-247979 [address] 07-29-2024 17:48-0500 Systolic blood pressure 149 mm[Hg] Dr. Ethan Rodriguez MD Work Phone: 5(853)053-006551 [place] [address] 07-29-2024 14:55-0500 Inhaled oxygen flow rate 2 L/min Dr. Ethan Rodriguez MD Work Phone: 8(713)189-566251 [place] [address] 07-29-2024 12:02-0500 Body weight 37.[address] Ethan Rodriguez MD Work Phone: 3(909)129-585679 [address] 07-29-2024 11:30-0500 Body mass index (BMI) [Ratio] 11.2 kg/m2 Dr. Ethan Rodriguez MD Work Phone: [facility] 07-18-2024 18:01-0500 Diastolic blood pressure 66 mm[Hg] Dr. Ethan Rodriguez MD Work Phone: [facility] 07-18-2024 18:01-0500 Heart rate 62 /min Dr. Ethan Rodriguez MD Work Phone: [facility] 07-18-2024 18:01-0500 Inhaled oxygen flow rate 3 L/min Dr. Ethan Rodriguez MD Work Phone: [facility] 07-18-2024 18:01-0500 Respiratory rate 15 /min Dr. Ethan Rodriguez MD Work Phone: [facility] 07-18-2024 18:01-0500 SaO2% (BldA) [Mass fraction] 100 % Dr. Ethan Rodriguez MD Work Phone: [facility] 07-18-2024 18:01-0500 Systolic blood pressure 140 mm[Hg] Dr. Ethan Rodriguez MD Work Phone: [facility] 07-18-2024 15:40-0500 Body temperature 97.4 [degF] Dr. Ethan Rodriguez MD Work Phone: [facility] 07-18-2024 09:50-0500 Body mass index (BMI) [Ratio] 14.6 kg/m2 Dr. Ethan Rodriguez MD Work Phone: [facility] 07-18-2024 09:50-0500 Body weight 49.[address] Ethan Rodriguez MD Work Phone: [facility] 06-05-2024 15:34-0500 Body temperature 97.3 [degF] Dr. Ethan Rodriguez MD Work Phone: [facility] 06-05-2024 15:34-0500 Diastolic blood pressure 60 mm[Hg] Dr. Ethan Rodriguez MD Work Phone: [facility] 06-05-2024 15:34-0500 Heart rate 98 /min Dr. Ethan Rodriguez MD Work Phone: [facility] 06-05-2024 15:34-0500 Respiratory rate 16 /min Dr. Ethan Rodriguez MD Work Phone: [facility] 06-05-2024 15:34-0500 Systolic blood pressure 90 mm[Hg] Dr. Ethan Rodriguez MD Work Phone: [facility] 04-30-2024 13:45-0500 Body mass index (BMI) [Ratio] 15 kg/m2 Dr. Ethan Rodriguez MD Work Phone: [facility] 04-30-2024 13:45-0500 Body weight 48.[address] Ethan Rodriguez MD Work Phone: [facility] 04-30-2024 13:45-0500 Diastolic blood pressure 81 mm[Hg] Dr. Ethan Rodriguez MD Work Phone: [facility] 04-30-2024 13:45-0500 Respiratory rate 18 /min Dr. Ethan Rodriguez MD Work Phone: [facility] 04-30-2024 13:45-0500 Systolic blood pressure 112 mm[Hg] Dr. Ethan Rodriguez MD Work Phone: [facility] 04-04-2024 10:22-0500 Body height 182.9 cm Cate Contreras DUPLICATOR [employer] SET UP OPERATOR Work Phone: [facility] 04-04-2024 10:22-0500 Body mass index (BMI) [Ratio] 15.6 kg/m2 Cate Contreras DUPLICATOR [employer] SET UP OPERATOR Work Phone: [facility] 04-04-2024 10:22-0500 Body weight 52.16 kg Cate Contreras DUPLICATOR [employer] SET UP OPERATOR Work Phone: [facility] 04-04-2024 10:22-0500 Diastolic blood pressure 60 mm[Hg] Cate Contreras DUPLICATOR [employer] SET UP OPERATOR Work Phone: [facility] 04-04-2024 10:22-0500 Heart rate 94 /min Cate Contreras DUPLICATOR [employer] SET UP OPERATOR Work Phone: [facility] 04-04-2024 10:22-0500 Respiratory rate 12 /min Cate Contreras DUPLICATOR [employer] SET UP OPERATOR Work Phone: [facility] 04-04-2024 10:22-0500 SaO2% (BldA) [Mass fraction] 92 % Cate Contreras DUPLICATOR [employer] SET UP OPERATOR Work Phone: [facility] 04-04-2024 10:22-0500 Systolic blood pressure 82 mm[Hg] Cate Contreras DUPLICATOR [employer] SET UP OPERATOR Work Phone: [facility] 01-09-2024 12:36-0400 Diastolic blood pressure 97 mm[Hg] Sarath Rey MD Work Phone: [facility] 01-09-2024 12:36-0400 Heart rate 73 /min Sarath Rey MD Work Phone: [facility] 01-09-2024 12:36-0400 Systolic blood pressure 146 mm[Hg] Sarath Rey MD Work Phone: [facility] 01-09-2024 12:30-0400 Body height 180.3 cm Sarath Rey MD Work Phone: [facility] 01-09-2024 12:30-0400 Body mass index (BMI) [Ratio] 16.46 kg/m2 Sarath Rey MD Work Phone: [facility] 01-09-2024 12:30-0400 Body weight 53.52 kg Sarath Rey MD Work Phone: [facility] 01-03-2024 07:49-0400 Body temperature 97.3 [degF] Makenzie Garza RN [facility] 01-03-2024 07:49-0400 Diastolic blood pressure 82 mm[Hg] Makenzie Garza RN [facility] 01-03-2024 07:49-0400 Heart rate 72 /min Makenzie Garza RN [facility] 01-03-2024 07:49-0400 Respiratory rate 18 /min Makenzie Garza RN [facility] 01-03-2024 07:49-0400 SaO2% (BldA) [Mass fraction] 94 % Makenzie Garza RN [facility] 01-03-2024 07:49-0400 Systolic blood pressure 144 mm[Hg] Makenzie Garza RN [facility] 12-27-2023 16:20-0400 Body mass index (BMI) [Ratio] 16.32 kg/m2 Nahid Lindsay PT [facility] 12-27-2023 16:20-0400 Body temperature 98.1 [degF] Nahid Lindsay PT [facility] 12-27-2023 16:20-0400 Body weight 53.07 kg Nahid Lindsay PT [facility] 12-27-2023 16:20-0400 Diastolic blood pressure 82 mm[Hg] Nahid Lindsay PT [facility] 12-27-2023 16:20-0400 Heart rate 62 /min Nahid Lindsay PT [facility] 12-27-2023 16:20-0400 Respiratory rate 16 /min Nahid Lindsay PT [facility] 12-27-2023 16:20-0400 SaO2% (BldA) [Mass fraction] 96 % Nahid Lindsay PT [facility] [facility]-2023 16:20-0400 Systolic blood pressure 124 mm[Hg] Nahid Lindsay PT [facility] 12-27-2023 12:35-0400 Body temperature 97.11 [degF] Antonietta Aleshia [facility] 12-27-2023 12:35-0400 Diastolic blood pressure 80 mm[Hg] Antonietta Aleshia [facility] 12-27-2023 12:35-0400 Heart rate 72 /min Antonietta Aleshia [facility] 12-27-2023 12:35-0400 Respiratory rate 16 /min Antonietta Aleshia [facility] 12-27-2023 12:35-0400 SaO2% (BldA) [Mass fraction] 93 % Antonietta Aleshia [facility] 12-27-2023 12:35-0400 Systolic blood pressure 122 mm[Hg] Antonietta Aleshia [facility] 12-26-2023 11:59-0400 Diastolic blood pressure 87 mm[Hg] Sarath Rey MD Work Phone: [facility] 12-26-2023 11:59-0400 Heart rate 65 /min Sarath Rey MD Work Phone: [facility] 12-26-2023 11:59-0400 Systolic blood pressure 145 mm[Hg] Sarath Rey MD Work Phone: [facility] 12-26-2023 11:53-0400 Body height 180.3 cm Sarath Rey MD Work Phone: [facility] 12-26-2023 11:53-0400 Body mass index (BMI) [Ratio] 16.18 kg/m2 Sarath Rey MD Work Phone: [facility] 12-26-2023 11:53-0400 Body weight 52.62 kg Sarath Rey MD Work Phone: [facility] 12-25-2023 14:00-0400 Body temperature 96.91 [degF] [facility] 12-25-2023 14:00-0400 Diastolic blood pressure 90 mm[Hg] [facility] 12-25-2023 14:00-0400 Heart rate 80 /min [facility] 12-25-2023 14:00-0400 Respiratory rate 16 /min [facility] 12-25-2023 14:00-0400 Systolic blood pressure 147 mm[Hg] [facility] 12-20-2023 16:23-0400 Body temperature 98.8 [degF] [facility]-20-[facility] 16:23-0400 Diastolic blood pressure 93 mm[Hg] [facility] 12-20-2023 16:23-0400 Heart rate 66 /min [facility] 12-20-2023 16:23-0400 Respiratory rate 16 /min [facility] 12-20-2023 16:23-0400 SaO2% (BldA) [Mass fraction] 98 % Adileneher Albright [facility] 12-20-2023 16:23-0400 Systolic blood pressure 150 mm[Hg] Adileneher Albright [facility] 12-20-2023 12:22-0400 Body temperature 97.7 [degF] Ernestina Moody [facility] 12-20-2023 12:22-0400 Diastolic blood pressure 75 mm[Hg] Ernesitna Moody [facility] 12-20-2023 12:22-0400 Heart rate 70 /min Ernestina Moody [facility] 12-20-2023 12:22-0400 Respiratory rate 16 /min Ernestina Moody [facility] 12-20-2023 12:22-0400 SaO2% (BldA) [Mass fraction] 98 % Ernestina Moody [facility] 12-20-2023 12:22-0400 Systolic blood pressure 148 mm[Hg] Ernestina Moody [facility] 12-18-2023 12:33-0400 Diastolic blood pressure 87 mm[Hg] Ernestina Moody [facility] 12-18-2023 12:33-0400 Respiratory rate 16 /min Ernestina Moody [facility] 12-18-2023 12:33-0400 Systolic blood pressure 153 mm[Hg] Ernestina Moody [facility] 12-18-2023 12:08-0400 Body temperature 97 [degF] Ernestina Moody [facility] 12-18-2023 12:08-0400 Heart rate 59 /min Ernestina Moody [facility] 12-14-2023 11:15-0400 Body temperature 97 [degF] Ernestina Moody [facility] 12-14-2023 11:15-0400 Diastolic blood pressure 72 mm[Hg] Ernestina Moody [facility] 12-14-2023 11:15-0400 Heart rate 62 /min Ernestina Moody [facility] 12-14-2023 11:15-0400 Respiratory rate 16 /min Ernestina Moody [facility] 12-14-2023 11:15-0400 SaO2% (BldA) [Mass fraction] 97 % Ernestina Moody [facility] 12-14-2023 11:15-0400 Systolic blood pressure 117 mm[Hg] Ernestina Moody [facility] 12-13-2023 13:12-0400 Body temperature 97 [degF] Makenzie aGrza RN [facility] 12-13-2023 13:12-0400 Diastolic blood pressure 68 mm[Hg] Makenzie Garza RN [facility] 12-13-2023 13:12-0400 Heart rate 56 /min Makenzie Garza RN [facility] 12-13-2023 13:12-0400 Respiratory rate 18 /min Makenzie Garza RN [facility] 12-13-2023 13:12-0400 SaO2% (BldA) [Mass fraction] 99 % Makenzie Garza RN [facility] 12-13-2023 13:12-0400 Systolic blood pressure 118 mm[Hg] Makenzie Garza RN [facility] 12-13-2023 11:13-0400 Body temperature 97.2 [degF] Ernestina Moody SLOOP CAPTAIN [facility] 12-13-2023 11:13-0400 Diastolic blood pressure 88 mm[Hg] Ernestina Moody [employer] CAPTAIN [facility] 12-13-2023 11:13-0400 Heart rate 64 /min Ernestina Moody [employer] [facility] 12-13-2023 11:13-0400 Respiratory rate 16 /min Ernestina Moody [employer] CAPTAIN [facility] 12-13-2023 11:13-0400 Systolic blood pressure 140 mm[Hg] Ernestina Moody [employer] CAPTAIN [facility] 12-06-2023 14:27-0400 Body mass index (BMI) [Ratio] 15.9 kg/m2 Nahid Lindsay PT [facility] 12-06-2023 14:27-0400 Body temperature 98.1 [degF] Nahid Lindsay PT [facility] 12-06-2023 14:27-0400 Body weight 51.71 kg Nahid Lindsay PT [facility] 12-06-2023 14:27-0400 Diastolic blood pressure 74 mm[Hg] Nahid Lindsay PT [facility] 12-06-2023 14:27-0400 Heart rate 76 /min Nahid Lindsay PT [facility] 12-06-2023 14:27-0400 Respiratory rate 16 /min Nahid Lindsay PT [facility] 12-06-2023 14:27-0400 SaO2% (BldA) [Mass fraction] 96 % Nahid Lindsay PT [facility] 12-06-2023 14:27-0400 Systolic blood pressure 128 mm[Hg] Nahid Lindsay PT [facility] 12-06-2023 10:29-0400 Body temperature 97.7 [degF] Makenzie Garza RN [facility] 12-06-2023 10:29-0400 Diastolic blood pressure 78 mm[Hg] Makenzie Garaz RN [facility] 12-06-2023 10:29-0400 Heart rate 88 /min Makenzie Garza RN [facility] 12-06-2023 10:29-0400 Respiratory rate 16 /min Makenzie Garza RN [facility] 12-06-2023 10:29-0400 Systolic blood pressure 148 mm[Hg] Makenzie Garza RN [facility] 12-05-2023 11:20-0400 Body temperature 97.7 [degF] Ernestina Moody [employer]OP CAPTAIN [facility] 12-05-2023 11:20-0400 Diastolic blood pressure 73 mm[Hg] Ernestian Moody [facility] Comment on above: pt had not taken BP medication yet 12-05-2023 11:20-0400 Heart rate 69 /min Ernestina Moody [facility] 12-05-2023 11:20-0400 Respiratory rate 16 /min Ernestina Moody [facility] 12-05-2023 11:20-0400 SaO2% (BldA) [Mass fraction] 98 % Ernestina Moody [facility] 12-05-2023 11:20-0400 Systolic blood pressure 150 mm[Hg] Ernestina Moody [facility] Comment on above: pt had not taken BP medication yet 11-29-2023 13:07-0400 Body temperature 98.1 [degF] Sol Bui OT [facility] 11-29-2023 13:07-0400 Diastolic blood pressure 76 mm[Hg] Sol Bui OT [facility] 11-29-2023 13:07-0400 Heart rate 62 /min Sol Bui OT [facility] 11-29-2023 13:07-0400 Respiratory rate 14 /min Sol Bui OT [facility] 11-29-2023 13:07-0400 Systolic blood pressure 139 mm[Hg] Sol Bui OT [facility] 11-29-2023 11:44-0400 Body temperature 97.11 [degF] Adilene Albright [facility] 11-29-2023 11:44-0400 Diastolic blood pressure 77 mm[Hg] Adilene Albright [facility] 11-29-2023 11:44-0400 Heart rate 61 /min Adilene Albright [facility] 11-29-2023 11:44-0400 Respiratory rate 18 /min Adilene Albright [facility] 11-29-2023 11:44-0400 SaO2% (BldA) [Mass fraction] 100 % Adilene Albright [facility] 11-29-2023 11:44-0400 Systolic blood pressure 127 mm[Hg] Adilene Albright [facility] 11-29-2023 09:19-0400 Body temperature 97.5 [degF] Ernestina Moody [facility] 11-29-2023 09:19-0400 Diastolic blood pressure 80 mm[Hg] Ernestina Moody [facility] 11-29-2023 09:19-0400 Heart rate 64 /min Ernestina Moody [facility] 11-29-2023 09:19-0400 Respiratory rate 16 /min Ernestina Moody [facility] 11-29-2023 09:19-0400 SaO2% (BldA) [Mass fraction] 99 % Ernestina Moody [facility] 11-29-2023 09:19-0400 Systolic blood pressure 127 mm[Hg] Ernestina Moody [facility] 11-28-2023 10:13-0400 Body temperature 97.2 [degF] Ernestina Moody [facility] 11-28-2023 10:13-0400 Diastolic blood pressure 82 mm[Hg] Ernestina Moody [facility] 11-28-2023 10:13-0400 Heart rate 69 /min Ernestina Moody [facility] 11-28-2023 10:13-0400 Respiratory rate 16 /min Ernestina Moody [facility] 11-28-2023 10:13-0400 SaO2% (BldA) [Mass fraction] 100 % Ernestina Moody [facility] 11-28-2023 10:13-0400 Systolic blood pressure 133 mm[Hg] Ernestina Moody [facility] 11-27-2023 15:51-0400 Body temperature 97.59 [degF] [facility] 11-27-2023 15:51-0400 Diastolic blood pressure 76 mm[Hg] [facility] 11-27-2023 15:51-0400 Heart rate 83 /min [facility] 11-27-2023 15:51-0400 Respiratory rate 16 /min [facility] 11-27-2023 15:51-0400 SaO2% (BldA) [Mass fraction] 99 % [facility] 11-27-2023 15:51-0400 Systolic blood pressure 111 mm[Hg] [facility] 11-24-2023 15:47-0400 Body temperature 98.71 [degF] [facility] 11-24-2023 15:47-0400 Diastolic blood pressure 83 mm[Hg] [facility] 11-24-2023 15:47-0400 Heart rate 69 /min [facility] 11-24-2023 15:47-0400 Respiratory rate 16 /min [facility] 11-24-2023 15:47-0400 SaO2% (BldA) [Mass fraction] 99 % Giovany [facility] 11-24-2023 15:47-0400 Systolic blood pressure 163 mm[Hg] Giovany [facility] 11-23-2023 16:05-0400 Body temperature 97.7 [degF] Giovany [facility] 11-23-2023 16:05-0400 Diastolic blood pressure 89 mm[Hg] Giovany [facility] 11-23-2023 16:05-0400 Heart rate 58 /min [facility] 11-23-2023 16:05-0400 Respiratory rate 16 /min Giovanyjett [facility] 11-23-2023 16:05-0400 SaO2% (BldA) [Mass fraction] 99 % Giovanyjett [facility] 11-23-2023 16:05-0400 Systolic blood pressure 140 mm[Hg] Giovany [facility] 11-23-2023 13:17-0400 Diastolic blood pressure 80 mm[Hg] Ying Quispe DO Work Phone: [facility] 11-23-2023 13:17-0400 Systolic blood pressure 104 mm[Hg] Ying Quispe DO Work Phone: [facility] 11-23-2023 13:11-0400 Body height 180.3 cm Ying Quispe DO Work Phone: [facility] 11-23-2023 13:11-0400 Body mass index (BMI) [Ratio] 16.01 kg/m2 Ying Quispe DO Work Phone: [facility] 11-23-2023 13:11-0400 Body temperature 98.29 [degF] Ying Quispe DO Work Phone: [facility] 11-23-2023 13:11-0400 Body weight 52.07 kg Ying Quispe DO Work Phone: [facility] 11-23-2023 13:11-0400 Heart rate 90 /min Ying Quispe DO Work Phone: [facility] 11-23-2023 13:11-0400 Respiratory rate 16 /min Ying Quispe DO Work Phone: [facility] 11-23-2023 09:59-0400 Body temperature 96.8 [degF] Ernestina Moody [facility] 11-23-2023 09:59-0400 Diastolic blood pressure 81 mm[Hg] Ernestina Moody [facility] 11-23-2023 09:59-0400 Heart rate 67 /min Ernestina Moody [facility] 11-23-2023 09:59-0400 Respiratory rate 16 /min Ernestina Moody [facility] 11-23-2023 09:59-0400 Systolic blood pressure 157 mm[Hg] Ernestina Moody [facility] 11-22-2023 13:56-0400 Body temperature 98.49 [degF] Abigail Domka DUPLICATOR PUNCH SET UP OPERATOR Work Phone: [facility] 11-22-2023 13:56-0400 Diastolic blood pressure 74 mm[Hg] Abigail Domka DUPLICATOR P[employer]CH SET UP OPERATOR Work Phone: [facility] 11-22-2023 13:56-0400 Heart rate 89 /min Abigail Domka DUPLICATOR P[employer]CH SET UP OPERATOR Work Phone: [facility] 11-22-2023 13:56-0400 Respiratory rate 16 /min Abigail Domka DUPLICATOR P[employer]CH SET UP OPERATOR Work Phone: [facility] 11-22-2023 13:56-0400 SaO2% (BldA) [Mass fraction] 93 % Abigail Domka DUPLICATOR PUNCH SET UP OPERATOR Work Phone: [facility] 11-22-2023 13:56-0400 Systolic blood pressure 114 mm[Hg] Abigail Domka DUPLICATOR PUNCH SET UP OPERATOR Work Phone: [facility] 11-21-2023 13:21-0400 Body temperature 97.11 [degF] Adilene Antoniou [employer]ARN [employer]PARATION SUPERVISOR [facility] 11-21-2023 13:21-0400 Diastolic blood pressure 64 mm[Hg] Adilene Antoniou [employer]ARN PREPARATION SUPERVISOR [facility] 11-21-2023 13:21-0400 Heart rate 60 /min Adilene Antoniou [employer]ARN PREPAR[employer] SUPERVISOR [facility] 11-21-2023 13:21-0400 Respiratory rate 16 /min [facility] 11-21-2023 13:21-0400 SaO2% (BldA) [Mass fraction] 100 % [facility] 11-21-2023 13:21-0400 Systolic blood pressure 127 mm[Hg] Adilene Albright [facility] 11-21-2023 12:15-0400 Body temperature 97 [degF] Ernestina Moody [facility] 11-21-2023 12:15-0400 Diastolic blood pressure 63 mm[Hg] Ernestina Moody [facility] 11-21-2023 12:15-0400 Heart rate 59 /min Ernestina Moody [facility] 11-21-2023 12:15-0400 Respiratory rate 16 /min Ernestina Moody [facility] 11-21-2023 12:15-0400 SaO2% (BldA) [Mass fraction] 100 % Ernestina Moody [facility] 11-21-2023 12:15-0400 Systolic blood pressure 121 mm[Hg] Ernestina Moody [facility] 11-17-2023 15:18-0400 Body temperature 97.5 [degF] Giovnay [facility] 11-17-2023 15:18-0400 Diastolic blood pressure 86 mm[Hg] [facility] 11-17-2023 15:18-0400 Heart rate 75 /min [facility] 11-17-2023 15:18-0400 Respiratory rate 16 /min Giovany [facility] 11-17-2023 15:18-0400 SaO2% (BldA) [Mass fraction] 99 % Giovany [facility] 11-17-2023 15:18-0400 Systolic blood pressure 148 mm[Hg] Giovany [facility] 11-17-2023 08:07-0400 Diastolic blood pressure 81 mm[Hg] Tylor Kruger MD Work Phone: [facility] 11-17-2023 08:07-0400 Heart rate 65 /min Tylor Kruger MD Work Phone: [facility] 11-17-2023 08:07-0400 Systolic blood pressure 145 mm[Hg] Tylor Kruger MD Work Phone: [facility] 11-17-2023 08:05-0400 Body height 180.3 cm Tylor Kruger MD Work Phone: [facility] 11-17-2023 08:05-0400 Body mass index (BMI) [Ratio] 17.43 kg/m2 Tylor Kruger MD Work Phone: [facility] 11-17-2023 08:05-0400 Body weight 56.7 kg Tylor Kruger MD Work Phone: [facility] 11-16-2023 13:44-0400 Body temperature 97.7 [degF] Ernestina Moody [facility] 11-16-2023 13:44-0400 Diastolic blood pressure 64 mm[Hg] Ernestina Moody [facility] 11-16-2023 13:44-0400 Heart rate 65 /min Ernestina Moody [facility] 11-16-2023 13:44-0400 Respiratory rate 16 /min Ernestina Moody [facility] 11-16-2023 13:44-0400 SaO2% (BldA) [Mass fraction] 96 % Ernestina Moody [facility] 11-16-2023 13:44-0400 Systolic blood pressure 111 mm[Hg] Ernestina Moody [facility] 11-14-2023 10:17-0400 Body temperature 98.29 [degF] Nahid Lindsay [facility] 11-14-2023 10:17-0400 Diastolic blood pressure 78 mm[Hg] Nahid Lindsay PT [facility] 11-14-2023 10:17-0400 Heart rate 98 /min Nahid Lindsay PT [facility] 11-14-2023 10:17-0400 Respiratory rate 16 /min Nahid Lindsay PT [facility] 11-14-2023 10:17-0400 SaO2% (BldA) [Mass fraction] 99 % Nahid Lindsay PT [facility] 11-14-2023 10:17-0400 Systolic blood pressure 148 mm[Hg] Nahid Lindsay PT [facility] 11-14-2023 09:47-0400 Body temperature 100 [degF] [facility] 11-14-2023 09:47-0400 Diastolic blood pressure 82 mm[Hg] Adilene Antoniou [facility] 11-14-2023 09:47-0400 Heart rate 65 /min [facility] Antoniou [facility] 11-14-2023 09:47-0400 Respiratory rate 16 /min Adilene Albright [facility] 11-14-2023 09:47-0400 SaO2% (BldA) [Mass fraction] 97 % Adilene Albright [facility] 11-14-2023 09:47-0400 Systolic blood pressure 148 mm[Hg] Adilene Albright [facility] 11-13-2023 16:18-0400 Body temperature 97.59 [degF] [facility] 11-13-2023 16:18-0400 Diastolic blood pressure 85 mm[Hg] [facility] 11-13-2023 16:18-0400 Heart rate 67 /min [facility] 11-13-2023 16:18-0400 Respiratory rate 16 /min [facility] 11-13-2023 16:18-0400 SaO2% (BldA) [Mass fraction] 99 % [facility] 11-13-2023 16:18-0400 Systolic blood pressure 150 mm[Hg] [facility] 11-08-2023 11:20-0400 Body temperature 99.3 [degF] Sol Biu [facility] 11-08-2023 11:20-0400 Diastolic blood pressure 91 mm[Hg] Sol Bui [facility] 11-08-2023 11:20-0400 Heart rate 70 /min Sol Bui [facility] 11-08-2023 11:20-0400 Respiratory rate 14 /min Sol Bui [facility] 11-08-2023 11:20-0400 SaO2% (BldA) [Mass fraction] 99 % Sol Bui [facility] 11-08-2023 11:20-0400 Systolic blood pressure 177 mm[Hg] Sol Bui [facility] 11-08-2023 00:00-0400 Body temperature 98.1 [degF] Antonietta Aleshia [facility] 11-08-2023 00:00-0400 Diastolic blood pressure 90 mm[Hg] Antonietta Aleshia [facility] 11-08-2023 00:00-0400 Heart rate 72 /min Antonietta Aleshia [employer]ARN PREPARATION SUPERVISOR [facility] 11-08-2023 00:00-0400 Respiratory rate 16 /min Antonietta Monk LPN [facility] 11-08-2023 00:00-0400 SaO2% (BldA) [Mass fraction] 97 % Antonietta Monk LPN [facility] 11-08-2023 00:00-0400 Systolic blood pressure 148 mm[Hg] Antonietta Monk LPN [facility] 11-06-2023 10:03-0400 Body temperature 97.9 [degF] Makenzie Garza RN [facility] 11-06-2023 10:03-0400 Diastolic blood pressure 88 mm[Hg] Makenzie Garza RN [facility] 11-06-2023 10:03-0400 Heart rate 74 /min Makenzie Garza RN [facility] 11-06-2023 10:03-0400 Respiratory rate 16 /min Makenzie Garza RN [facility] 11-06-2023 10:03-0400 SaO2% (BldA) [Mass fraction] 94 % Makenize Garza RN [facility] 11-06-2023 10:03-0400 Systolic blood pressure 167 mm[Hg] Makenzie Garza RN [facility] 11-01-2023 13:10-0400 Diastolic blood pressure 76 mm[Hg] Cate Contreras DUPLICATOR PUNCH SET UP OPERATOR Work Phone: [facility] 11-01-2023 13:10-0400 Heart rate 52 /min Cate Contreras DUPLICATOR PUNCH SET UP OPERATOR Work Phone: [facility] 11-01-2023 13:10-0400 Systolic blood pressure 148 mm[Hg] Cate Contreras DUPLICATOR PUNCH SET UP OPERATOR Work Phone: [facility] 11-01-2023 12:53-0400 Body height 180.3 cm Cate Contreras DUPLICATOR PUNCH SET UP OPERATOR Work Phone: [facility] 11-01-2023 12:53-0400 Body mass index (BMI) [Ratio] 18.13 kg/m2 Cate Contreras DUPLICATOR P[employer]CH SET UP OPERATOR Work Phone: [facility] 11-01-2023 12:53-0400 Body weight 58.97 kg Cate Contreras DUPLICATOR PUNCH SET UP OPERATOR Work Phone: [facility] 09-26-2023 09:01-0400 Body height 180.3 cm Felicity Wesley DUPLICATOR PUNCH SET UP OPERATOR Work Phone: [facility] 09-26-2023 09:01-0400 Body mass index (BMI) [Ratio] 17.25 kg/m2 Felicity Wesley DUPLICATOR PUNCH SET UP OPERATOR Work Phone: [facility] 09-26-2023 09:01-0400 Body temperature 98.2 [degF] Felicity Garciaker DUPLICATOR PUNCH SET UP OPERATOR Work Phone: [facility] 09-26-2023 09:01-0400 Body weight 56.11 kg Felicity Wesley DUPLICATOR PUNCH SET UP OPERATOR Work Phone: [facility] 09-26-2023 09:01-0400 Diastolic blood pressure 70 mm[Hg] Felicity Olson DUPLICATOR PUNCH SET UP OPERATOR Work Phone: [facility] 09-26-2023 09:01-0400 Heart rate 75 /min Felicity Garciaker DUPLICATOR PUNCH SET UP OPERATOR Work Phone: [facility] 09-26-2023 09:01-0400 Respiratory rate 18 /min Felicity Wesley DUPLICATOR PUNCH SET UP OPERATOR Work Phone: [facility] 09-26-2023 09:01-0400 SaO2% (BldA) [Mass fraction] 93 % Felicity Wesley DUPLICATOR PUNCH SET UP OPERATOR Work Phone: [facility] 09-26-2023 09:01-0400 Systolic blood pressure 114 mm[Hg] Felicity Olson DUPLICATOR PUNCH SET UP OPERATOR Work Phone: [facility] 08-24-2023 12:56-0400 Body temperature 98.91 [degF] Theresa Boykin PA-C Work Phone: [facility] 08-24-2023 12:56-0400 Diastolic blood pressure 64 mm[Hg] Theresa Boykin PA-C Work Phone: [facility] 08-24-2023 12:56-0400 Systolic blood pressure 122 mm[Hg] Theresa Boykin PA-C Work Phone: [facility] 07-18-2023 08:55-0500 Body temperature 98.49 [degF] Yfn Lavern Jr., DPM Work Phone: [facility] 07-18-2023 08:55-0500 Diastolic blood pressure 70 mm[Hg] Yfn Lavern Jr., DPM Work Phone: [facility] 07-18-2023 08:55-0500 Heart rate 89 /min Yfn Lavern Jr., DPM Work Phone: [facility] 07-18-2023 08:55-0500 Systolic blood pressure 109 mm[Hg] Yfn Lavern Jr., DPM Work Phone: [facility] 07-04-2023 08:25-0500 Body temperature 98.2 [degF] Yfn Lavern Jr., DPM Work Phone: [facility] 07-04-2023 08:25-0500 Diastolic blood pressure 66 mm[Hg] Yfn Lavern Jr., DPM Work Phone: [facility] 07-04-2023 08:25-0500 Heart rate 92 /min Yfn Lavern Jr., DPM Work Phone: [facility] 07-04-2023 08:25-0500 Systolic blood pressure 100 mm[Hg] Yfn Lavern Jr., DPM Work Phone: [facility] 04-24-2023 11:26-0500 Body height 180.3 cm Ying Quispe DO Work Phone: [facility] 04-24-2023 11:26-0500 Body mass index (BMI) [Ratio] 19.54 kg/m2 Ying Quispe DO Work Phone: [facility] 04-24-2023 11:26-0500 Body temperature 97.9 [degF] Ying Quispe DO Work Phone: [facility] 04-24-2023 11:26-0500 Body weight 63.55 kg Ying Quispe DO Work Phone: [facility] 04-24-2023 11:26-0500 Diastolic blood pressure 68 mm[Hg] Ying Quispe DO Work Phone: [facility] 04-24-2023 11:26-0500 Heart rate 80 /min Ying Quispe DO Work Phone: [facility] 04-24-2023 11:26-0500 Respiratory rate 16 /min Ying Mccurdywell DO Work Phone: [facility] 04-24-2023 11:26-0500 Systolic blood pressure 110 mm[Hg] Ynig Mccurdywell DO Work Phone: [facility] 01-25-2023 15:39-0400 Body height 180.3 cm Ying Mccurdywell DO Work Phone: [facility] 01-25-2023 15:39-0400 Body mass index (BMI) [Ratio] 20.13 kg/m2 Ying Mccurdywell DO Work Phone: [facility] 01-25-2023 15:39-0400 Body temperature 97.59 [degF] Ying Quispe DO Work Phone: [facility] 01-25-2023 15:39-0400 Body weight 65.45 kg Ying Quispe DO Work Phone: [facility] 01-25-2023 15:39-0400 Diastolic blood pressure 72 mm[Hg] Ying Mccurdywell DO Work Phone: [facility] 01-25-2023 15:39-0400 Heart rate 72 /min Ying Mccurdywell DO Work Phone: [facility] 01-25-2023 15:39-0400 Respiratory rate 18 /min Ying Mccurdywell DO Work Phone: [facility] 01-25-2023 15:39-0400 SaO2% (BldA) [Mass fraction] 99 % Ying [place] DO Work Phone: [facility] 01-25-2023 15:39-0400 Systolic blood pressure 132 mm[Hg] Ying Brittaney DO Work Phone: [facility] 12-12-2022 09:32-0400 Body height 180.3 cm Lita Gu MD Work Phone: [facility] 12-12-2022 09:32-0400 Body mass index (BMI) [Ratio] 20.64 kg/m2 Lita Gu MD Work Phone: [facility] 12-12-2022 09:32-0400 Body temperature 98.1 [degF] Lita Gu MD Work Phone: [facility] 12-12-2022 09:32-0400 Body weight 67.13 kg Lita Gu MD Work Phone: [facility] 12-12-2022 09:32-0400 Diastolic blood pressure 84 mm[Hg] Lita Gu MD Work Phone: [facility] 12-12-2022 09:32-0400 Heart rate 93 /min Lita Gu MD Work Phone: [facility] 12-12-2022 09:32-0400 SaO2% (BldA) [Mass fraction] 97 % Lita Gu MD Work Phone: [facility] 12-12-2022 09:32-0400 Systolic blood pressure 130 mm[Hg] Lita Gu MD Work Phone: [facility] 11-28-2022 16:59-0400 Diastolic blood pressure 80 mm[Hg] Ying Quispe DO Work Phone: [facility] 11-28-2022 16:59-0400 Systolic blood pressure 146 mm[Hg] Ying Quispe DO Work Phone: [facility] 11-28-2022 16:12-0400 Body height 180.3 cm Ying Quispe DO Work Phone: [facility] 11-28-2022 16:12-0400 Body mass index (BMI) [Ratio] 21.27 kg/m2 Ying Quispe DO Work Phone: [facility] 11-28-2022 16:12-0400 Body temperature 98.29 [degF] Ying Quispe DO Work Phone: [facility] 11-28-2022 16:12-0400 Body weight 69.17 kg Ying Quispe DO Work Phone: [facility] 11-28-2022 16:12-0400 Heart rate 92 /min Ying Quispe DO Work Phone: [facility] 11-28-2022 16:12-0400 Respiratory rate 20 /min Ying Quispe DO Work Phone: [facility] 11-28-2022 16:12-0400 SaO2% (BldA) [Mass fraction] 99 % Ying Quispe DO Work Phone: [facility] 10-25-2022 10:32-0400 Body height 180.3 cm Lita Gu MD Work Phone: [facility] 10-25-2022 10:32-0400 Body mass index (BMI) [Ratio] 21.38 kg/m2 Lita Gu MD Work Phone: [facility] 10-25-2022 10:32-0400 Body temperature 98.71 [degF] Lita Gu MD Work Phone: [facility] 10-25-2022 10:32-0400 Body weight 69.54 kg Lita Gu MD Work Phone: [facility] 10-25-2022 10:32-0400 Diastolic blood pressure 78 mm[Hg] Lita Gu MD Work Phone: [facility] 10-25-2022 10:32-0400 Heart rate 86 /min Lita Gu MD Work Phone: [facility] 10-25-2022 10:32-0400 SaO2% (BldA) [Mass fraction] 94 % Lita Gu MD Work Phone: [facility] 10-25-2022 10:32-0400 Systolic blood pressure 137 mm[Hg] Lita Gu MD Work Phone: [facility] 09-27-2022 09:03-0400 Body height 180.3 cm Lita Gu MD Work Phone: [facility] 09-27-2022 09:03-0400 Body mass index (BMI) [Ratio] 22.82 kg/m2 Lita Gu MD Work Phone: [facility] 09-27-2022 09:03-0400 Body temperature 98.4 [degF] Lita Gu MD Work Phone: [facility] 09-27-2022 09:03-0400 Body weight 74.21 kg Lita Gu MD Work Phone: [facility] 09-27-2022 09:03-0400 Diastolic blood pressure 84 mm[Hg] Lita Gu MD Work Phone: [facility] 09-27-2022 09:03-0400 Heart rate 95 /min Lita Gu MD Work Phone: [facility] 09-27-2022 09:03-0400 SaO2% (BldA) [Mass fraction] 95 % Lita Gu MD Work Phone: [facility] 09-27-2022 09:03-0400 Systolic blood pressure 144 mm[Hg] Lita Gu MD Work Phone: [facility] 08-15-2022 16:36-0400 Body height 180.3 cm Ying Quispe DO Work Phone: [facility] 08-15-2022 16:36-0400 Body mass index (BMI) [Ratio] 23.32 kg/m2 Ying Quispe DO Work Phone: [facility] 08-15-2022 16:36-0400 Body temperature 99.19 [degF] Ying Quispe DO Work Phone: [facility] 08-15-2022 16:36-0400 Body weight 75.84 kg Ying Quispe DO Work Phone: [facility] 08-15-2022 16:36-0400 Diastolic blood pressure 80 mm[Hg] Ying Quispe DO Work Phone: [facility] 08-15-2022 16:36-0400 Heart rate 88 /min Ying Quispe DO Work Phone: [facility] 08-15-2022 16:36-0400 Respiratory rate 14 /min Ying Quispe DO Work Phone: [facility] 08-15-2022 16:36-0400 Systolic blood pressure 138 mm[Hg] Ying Quispe DO Work Phone: [facility] 07-06-2022 08:34-0500 Body height 180.3 cm Lita Gu MD Work Phone: [facility] 07-06-2022 08:34-0500 Body mass index (BMI) [Ratio] 24.02 kg/m2 Lita Gu MD Work Phone: [facility] 07-06-2022 08:34-0500 Body temperature 98.2 [degF] Lita Gu MD Work Phone: [facility] 07-06-2022 08:34-0500 Body weight 78.11 kg Lita Gu MD Work Phone: [facility] 07-06-2022 08:34-0500 Diastolic blood pressure 83 mm[Hg] Lita Gu MD Work Phone: [facility] 07-06-2022 08:34-0500 Heart rate 92 /min Lita Gu MD Work Phone: [facility] 07-06-2022 08:34-0500 SaO2% (BldA) [Mass fraction] 94 % Lita Gu MD Work Phone: [facility] 07-06-2022 08:34-0500 Systolic blood pressure 133 mm[Hg] Lita Gu MD Work Phone: [facility] 06-13-2022 15:17-0500 Body height 180.3 cm Ying Quispe DO Work Phone: [facility] 06-13-2022 15:17-0500 Body mass index (BMI) [Ratio] 24.73 kg/m2 Ying Quispe DO Work Phone: [facility] 06-13-2022 15:17-0500 Body temperature 98.71 [degF] Ying Quispe DO Work Phone: [facility] 06-13-2022 15:17-0500 Body weight 80.42 kg Ying Quispe DO Work Phone: [facility] 06-13-2022 15:17-0500 Diastolic blood pressure 70 mm[Hg] Ying Quispe DO Work Phone: [facility] 06-13-2022 15:17-0500 Heart rate 72 /min Ying Quispe DO Work Phone: [facility] 06-13-2022 15:17-0500 Respiratory rate 18 /min Ying Quispe DO Work Phone: [facility] 06-13-2022 15:17-0500 Systolic blood pressure 132 mm[Hg] Ying Quispe DO Work Phone: [facility] 06-11-2022 09:40-0500 Body temperature 98.91 [degF] Shira Lopez MD Work Phone: [facility] 06-11-2022 09:40-0500 Diastolic blood pressure 74 mm[Hg] Shira Lopez MD Work Phone: [facility] 06-11-2022 09:40-0500 Heart rate 83 /min Shira Lopez MD Work Phone: [facility] 06-11-2022 09:40-0500 Respiratory rate 14 /min Sihra Lopez MD Work Phone: [facility] 06-11-2022 09:40-0500 SaO2% (BldA) [Mass fraction] 96 % Shira Lopez MD Work Phone: [facility] 06-11-2022 09:40-0500 Systolic blood pressure 125 mm[Hg] Shira Lopez MD Work Phone: [facility] 06-10-2022 08:51-0500 Body height 180.3 cm Shira Lopez MD Work Phone: [facility] 06-10-2022 08:51-0500 Body mass index (BMI) [Ratio] 23.71 kg/m2 Shira Lopez MD Work Phone: [facility] 06-10-2022 08:51-0500 Body weight 77.11 kg Shira Lopez MD Work Phone: [facility] 06-06-2022 11:21-0500 Body height 179.7 cm Ying Quispe DO Work Phone: [facility] 06-06-2022 11:21-0500 Body mass index (BMI) [Ratio] 25.17 kg/m2 Ying Quispe DO Work Phone: [facility] 06-06-2022 11:21-0500 Body temperature 98.1 [degF] Ying Quispe DO Work Phone: [facility] 06-06-2022 11:21-0500 Body weight 81.28 kg Ying Quispe DO Work Phone: [facility] 06-06-2022 11:21-0500 Diastolic blood pressure 80 mm[Hg] Ying Quispe DO Work Phone: [facility] 06-06-2022 11:21-0500 Heart rate 80 /min Ying Quispe DO Work Phone: [facility] 06-06-2022 11:21-0500 Respiratory rate 16 /min Ying Quispe DO Work Phone: [facility] 06-06-2022 11:21-0500 Systolic blood pressure 130 mm[Hg] Ying Quispe DO Work Phone: [facility] 04-06-2022 11:17-0500 Body mass index (BMI) [Ratio] 25.06 kg/m2 Ying Quispe DO Work Phone: [facility] 04-06-2022 11:17-0500 Body temperature 98.49 [degF] Ying Quispe DO Work Phone: [facility] 04-06-2022 11:17-0500 Body weight 80.92 kg Ying Quispe DO Work Phone: [facility] 04-06-2022 11:17-0500 Diastolic blood pressure 76 mm[Hg] Ying Quispe DO Work Phone: [facility] 04-06-2022 11:17-0500 Heart rate 81 /min Ying Quispe DO Work Phone: [facility] 04-06-2022 11:17-0500 Respiratory rate 16 /min Ying Quispe DO Work Phone: [facility] 04-06-2022 11:17-0500 SaO2% (BldA) [Mass fraction] 96 % Ying Quispe DO Work Phone: [facility] 04-06-2022 11:17-0500 Systolic blood pressure 121 mm[Hg] Ying Quispe DO Work Phone: [facility] 01-05-2022 16:17-0400 Body height 179.7 cm Felicity Olson DUPLICATOR [employer] SET UP OPERATOR Work Phone: [facility] 01-05-2022 16:17-0400 Body mass index (BMI) [Ratio] 25.73 kg/m2 Felicity Olson DUPLICATOR [employer] SET UP OPERATOR Work Phone: [facility] 01-05-2022 16:17-0400 Body temperature 98.2 [degF] Felicity Olosn DUPLICATOR [employer] SET UP OPERATOR Work Phone: [facility] 01-05-2022 16:17-0400 Body weight 83.1 kg Felicity Olson DUPLICATOR [employer] SET UP OPERATOR Work Phone: [facility] 01-05-2022 16:17-0400 Diastolic blood pressure 70 mm[Hg] Felicity Olson DUPLICATOR [employer] SET UP OPERATOR Work Phone: [facility] 01-05-2022 16:17-0400 Heart rate 80 /min Felicity Olson DUPLICATOR [employer] SET UP OPERATOR Work Phone: [facility] 01-05-2022 16:17-0400 Respiratory rate 16 /min Felicity Wesley DUPLICATOR [employer] SET UP OPERATOR Work Phone: [facility] 01-05-2022 16:17-0400 Systolic blood pressure 126 mm[Hg] Felicity Olson DUPLICATOR [employer] SET UP OPERATOR Work Phone: [facility] 11-25-2021 16:10-0400 Body temperature 98.4 [degF] Yfn Puckett Jr., DPM Work Phone: [facility] 11-25-2021 16:10-0400 Diastolic blood pressure 82 mm[Hg] Yfn Puckett Jr., DPM Work Phone: [facility] 11-25-2021 16:10-0400 Heart rate 78 /min Yfn Puckett Jr., DPM Work Phone: [facility] 11-25-2021 16:10-0400 Systolic blood pressure 136 mm[Hg] Yfn Puckett Jr., DPM Work Phone: [facility] 11-18-2021 08:01-0400 Body height 179.7 cm Ying Quispe DO Work Phone: [facility] 11-18-2021 08:01-0400 Body mass index (BMI) [Ratio] 26.69 kg/m2 Ying Quispe DO Work Phone: [facility] 11-18-2021 08:01-0400 Body temperature 98.29 [degF] Ying Quispe DO Work Phone: [facility] 11-18-2021 08:01-0400 Body weight 86.18 kg Ying Quispe DO Work Phone: [facility] 11-18-2021 08:01-0400 Diastolic blood pressure 70 mm[Hg] Ying Quispe DO Work Phone: [facility] 11-18-2021 08:01-0400 Heart rate 66 /min Ying Quispe DO Work Phone: [facility] 11-18-2021 08:01-0400 Respiratory rate 16 /min Ying Quispe DO Work Phone: [facility] 11-18-2021 08:01-0400 Systolic blood pressure 138 mm[Hg] Ying Quispe DO Work Phone: [facility] 06-21-2021 14:44-0500 Body height 179.7 cm Ying Quispe DO Work Phone: [facility] 06-21-2021 14:44-0500 Body mass index (BMI) [Ratio] 26.21 kg/m2 Ying Quispe DO Work Phone: [facility] 06-21-2021 14:44-0500 Body temperature 98.6 [degF] Ying Quispe DO Work Phone: [facility] 06-21-2021 14:44-0500 Body weight 84.64 kg Ying Quispe DO Work Phone: [facility] 06-21-2021 14:44-0500 Diastolic blood pressure 80 mm[Hg] Ying Quispe DO Work Phone: [facility] 06-21-2021 14:44-0500 Heart rate 86 /min Ying Quispe DO Work Phone: [facility] 06-21-2021 14:44-0500 Respiratory rate 16 /min Ying Quispe DO Work Phone: [facility] 06-21-2021 14:44-0500 Systolic blood pressure 126 mm[Hg] Yign Quispe DO Work Phone: [facility] 06-17-2021 16:11-0500 Body temperature 97.3 [degF] Yfn Puckett Jr., DPM Work Phone: [facility] 06-17-2021 16:11-0500 Diastolic blood pressure 84 mm[Hg] Yfn Blandlon Jr., DPM Work Phone: [facility] 06-17-2021 16:11-0500 Heart rate 94 /min Yfn Danieln Jr., DPM Work Phone: [facility] 06-17-2021 16:11-0500 Systolic blood pressure 135 mm[Hg] Yfn Danieln Jr., DPM Work Phone: [facility] 05-12-2021 09:36-0500 Body height 179.7 cm Ying Quispe DO Work Phone: [facility] 05-12-2021 09:36-0500 Body mass index (BMI) [Ratio] 25.45 kg/m2 Ying Brittaney DO Work Phone: [facility] 05-12-2021 09:36-0500 Body temperature 98.6 [degF] Ying Quispe DO Work Phone: [facility] 05-12-2021 09:36-0500 Body weight 82.19 kg Ying Quispe DO Work Phone: [facility] 05-12-2021 09:36-0500 Diastolic blood pressure 53 mm[Hg] Ying Brittaney DO Work Phone: [facility] 05-12-2021 09:36-0500 Heart rate 78 /min Ying Quispe DO Work Phone: [facility] 05-12-2021 09:36-0500 Respiratory rate 16 /min Ying Quispe DO Work Phone: [facility] 05-12-2021 09:36-0500 Systolic blood pressure 93 mm[Hg] Ying Quispe DO Work Phone: [facility] 09-29-2020 13:32-0400 Diastolic blood pressure 85 mm[Hg] Bambi Huynh MD Work Phone: [facility] 09-29-2020 13:32-0400 Heart rate 74 /min Bambi Huynh MD Work Phone: [facility] 09-29-2020 13:32-0400 SaO2% (BldA) [Mass fraction] 93 % Bambi Huynh MD Work Phone: [facility] 09-29-2020 13:32-0400 Systolic blood pressure 138 mm[Hg] Bambi Huynh MD Work Phone: [facility] 09-29-2020 13:21-0400 Body height 182.9 cm Bambi Huynh MD Work Phone: [facility] 09-29-2020 13:21-0400 Body mass index (BMI) [Ratio] 26.65 kg/m2 Bambi Huynh MD Work Phone: [facility] 09-29-2020 13:21-0400 Body temperature 97.3 [degF] Bambi Huynh MD Work Phone: [facility] 09-29-2020 13:21-0400 Body weight 89.13 kg Bambi Huynh MD Work Phone: [facility] 12-06-2019 11:08-0400 BMI (Body Mass Index) 26.04 kg/m2 Rebeca [facility] 12-06-2019 11:08-0400 Body Temperature 98.8 [degF] Rebeca [facility] 12-06-2019 11:08-0400 Body weight 87.09 kg Rebeca [facility] 12-06-2019 11:08-0400 Height 182.9 cm [facility] 12-06-2019 11:08-0400 Pulse (Heart Rate) 80 /min [facility] 12-06-2019 11:08-0400 Pulse Oximetry 96 % Rebeca [facility] 12-06-2019 11:08-0400 Respiratory Rate 18 /min Rebeca [facility] 03-25-2019 14:16-0400 BMI (Body Mass Index) 27.17 kg/m2 Bambi Huynh [facility] 03-25-2019 14:16-0400 Body Temperature 98.01 [degF] Bambi Huynh [facility] 03-25-2019 14:16-0400 Body weight 90.86 kg Bambi Huynh [facility] 03-25-2019 14:16-0400 BP Diastolic 83 mm[Hg] [facility] 03-25-2019 14:16-0400 BP Systolic 135 mm[Hg] [facility] 03-25-2019 14:16-0400 Height 182.9 cm [facility] 03-25-2019 14:16-0400 Pulse (Heart Rate) 82 /min [facility] 03-25-2019 14:16-0400 Pulse Oximetry 98 % [facility] 03-25-2019 14:16-0400 Respiratory Rate 17 /min [facility] 01-14-2019 13:48-0400 BMI (Body Mass Index) 26.28 kg/m2 [facility] 01-14-2019 13:48-0400 Body Temperature 98.4 [degF] [facility] 01-14-2019 13:48-0400 Body weight 87.91 kg [facility] 01-14-2019 13:48-0400 BP Diastolic 76 mm[Hg] [facility] 01-14-2019 13:48-0400 BP Systolic 130 mm[Hg] [facility] 01-14-2019 13:48-0400 Pulse (Heart Rate) 75 /min [facility] 01-14-2019 13:48-0400 Pulse Oximetry 96 % [facility] 10-12-2018 15:25-0400 BMI (Body Mass Index) 26.62 kg/m2 [facility] 10-12-2018 15:25-0400 Body Temperature 97.81 [degF] [facility] 10-12-2018 15:25-0400 BP Diastolic 91 mm[Hg] [facility] 10-12-2018 15:25-0400 BP Systolic 168 mm[Hg] [facility] 10-12-2018 15:25-0400 Height 182.9 cm [facility] 10-12-2018 15:25-0400 Pulse (Heart Rate) 78 /min [facility] 10-12-2018 15:25-0400 Pulse Oximetry 98 % [facility] 10-12-2018 15:25-0400 Weight 89.04 kg [facility] 09-15-2018 11:11-0400 Body Temperature 97.59 [degF] Jagprsujit [facility] 09-15-2018 11:11-0400 BP Diastolic 79 mm[Hg] [facility] 09-15-2018 11:11-0400 BP Systolic 133 mm[Hg] [facility] 09-15-2018 11:11-0400 Pulse (Heart Rate) 61 /min [facility] 09-15-2018 11:11-0400 Pulse Oximetry 96 % [facility] 09-15-2018 11:11-0400 Respiratory Rate 16 /min [facility] 09-15-2018 01:32-0400 BMI (Body Mass Index) 26.76 kg/m2 [facility] 09-15-2018 01:32-0400 Height 182.9 cm [facility] 09-15-2018 01:32-0400 Weight 89.5 kg [facility] 09-14-2018 20:37-0400 Body Temperature 98.8 [degF] [place] [...] (Body Mass Index) 27 kg/m2 Bambi Huynh [facility] 09-14-2018 12:51-0400 Body Temperature 98.91 [degF] [facility] 12:51-0400 BP Diastolic 86 mm[Hg] [facility] 09-14-2018 12:51-0400 BP Systolic 132 mm[Hg] [facility] 09-14-2018 12:51-0400 Height 182.9 cm [facility] 09-14-2018 12:51-0400 Pulse (Heart Rate) 94 /min [facility] 09-14-2018 12:51-0400 Pulse Oximetry 94 % [facility] 09-14-2018 12:51-0400 Weight 90.31 kg [facility] 2018 07:36-0500 BMI (Body Mass Index) 27.08 kg/m2 [facility] 07[facility] Body Temperature 98.1 [degF] [facility] 2018 07:36-0500 BP Diastolic 79 mm[Hg] [facility] 2018 07:36-0500 BP Systolic 129 mm[Hg] [facility] 2018 07:36-0500 Height 182.9 cm [facility] 2018 07:36-0500 Pulse (Heart Rate) 79 /min [facility] 2018 07:36-0500 Pulse Oximetry 98 % [facility] 2018 07:36-0500 Weight 90.58 kg [facility] 09-05-2017 14:41-0400 BMI (Body Mass Index) 26.45 kg/m2 [facility] 09-05-2017 14:41-0400 Height 182.9 cm [facility] 09-05-2017 14:41-0400 Weight 88.45 kg [facility] 07-03-2017 07:48-0500 BMI (Body Mass Index) 26.89 kg/m2 [facility]: 07-03-2017 07:48-0500 Body Temperature 98.1 [degF] [facility] Work Phone: 07-03-2017 07:48-0500 BP Diastolic 83 mm[Hg] [facility] Work Phone: 07-03-2017 07:48-0500 BP Systolic 149 mm[Hg] Bambi Huynh [facility] Work Phone: 07-03-2017 07:48-0500 Height 182.9 cm Bambi Huynh [facility] Work Phone: 07-03-2017 07:48-0500 Pulse (Heart Rate) 88 /min Bambi Huynh [facility] Work Phone: 07-03-2017 07:48-0500 Pulse Oximetry 98 % Bambi Huynh [facility] Work Phone: 07-03-2017 07:48-0500 Respiratory Rate 14 /min Bambi Huynh [facility] Work Phone: 07-03-2017 07:48-0500 Weight 89.95 kg Bambi Huynh [facility] Work Phone: Encounters Encounter Date Encounter Type Care Provider Facility Start: 12-03-2024 ambulatory Millie Gudla O[facility] Facili ty:[facility] Start: 11-26-2024 ambulatory Millie Gudla OLS Facili ty:[facility] Start: 11-20-2024 End: 11-20-[address] Ethan Rodriguez MD Work Phone: -Cardiovascular Services Start: 11-20-2024 End: 11-20-2024 Dr. Ying Contreras [facility] -Cardi[facility] Services Work Phone: Start: 11-20-2024 End: 11-20-2024 ambulatory Millie Gudla Facility:[facility] Start: 11-18-2024 ambulatory Millie Gudla Facility:[facility]: 11-12-[facility]24 ambulatory Millie Gudla Facility:[facility] Start[facility]: 11-05-2024 ambulatory Millie Gudla Facility:[facility] Start: [facility]: [facility] Start: 11-04-2024 Dr. Millie Massey MD [facility] Start: 10-30-2024 [facility] Start: 10-30-2024 Dr. Millie Massey MD [facility] Start: 09-23-2024 End: 09-23-2024 Dr. [address] Massey MD [facility] Start: 09-23-2024 End: 09-23-2024 ambulatory [facility] Facility:[facility] Start: 09-18-2024 End: 09-18-[address] Ethan Rodriguez MD Work Phone: [facility] Work Phone: Start: 09-18-2024 End: 09-18-2024 Dr. Millie Massey MD [facility] Start: 09-18-2024 End: 09-18-2024 ambulatory [facility] Facility:[facility] Start: 09-16-2024 End: 09-16-[address] Ethan Rodriguez MD Work Phone: [facility] Work Phone: Start: 09-16-2024 End: 09-16-2024 Dr. Millie Massey MD [facility] Start: 09-16-2024 End: 09-16-2024 ambulatory [facility] Facility:[facility] Start: 09-15-2024 End: 09-15-2024 Dr. Ethan Rodriguez MD Work Phone: -Emergency Department Work Phone: Start: 09-15-2024 End: 09-15-2024 Emergency department patient visit Dr. Ethan Rodriguez MD Work Phone: [facility] Work Phone: Start: 09-09-2024 End: 09-09-2024 Dr. Millie Massey MD [facility] Start: 09-09-2024 End: 09-09-2024 ambulatory Millie Massey Facility:[facility] Start: 09-02-2024 End: 09-02-2024 Dr. Millie Massey MD [facility] Start: 09-02-2024 End: 09-02-2024 ambulatory Millie Massey Facility:[facility] Start: 08-31-2024 End: 08-31-2024 Millie Massey MD -[facility], Outpt Work Phone: Start: 08-31-2024 End: 08-31-[address] Ethan Rodriguez MD Work Phone: [facility] Work Phone: Start: 08-29-2024 ambulatory Millie Massey Facility:[facility] Start: 08-29-[address] Dr. [address] Mas[address] MD [facility] Start: 08-28-2024 End: 08-28-[address] Ethan Rodriguez MD Work Phone: [facility] Work Phone: Start: 08-28-2024 End: 08-28-2024 Dr. Millie Massey MD [facility] Start: 08-28-2024 End: 08-28-2024 ambulatory Millie Massey Facility:[facility] Start: 08-26-2024 End: 08-26-[address] Ethan Rodriguez MD Work Phone: [facility] Work Phone: Start: 08-26-2024 End: 08-26-2024 Dr. Millie Massey MD [facility] Start: 08-26-2024 End: 08-26-2024 ambulatory Millie Massey OLS Facility:[facility] Start: 08-23-2024 End: 08-23-2024 Documentation procedure Sol Huerta RN [facility] Start: 08-22-2024 End: 08-22-[address] Ethan Rodriguez MD Work Phone: [facility] Work Phone: Start: 08-22-2024 End: 08-22-2024 Dr. Millie Massey MD -[facility] Start: 08-22-2024 End: 08-22-2024 ambulatory Millie Gudla OLS Facility:[facility] Start: 08-19-2024 ambulatory Millie Gudla OLS Facili ty:[facility] Start: 08-19-2024 Dr. Millie Massey MD -[facility] Start: 08-17-2024 Dr. Nikolas Magaña MD -[facility] Inpatient Physicians Work Phone: Start: 08-16-2024 Dr. Nikolas Magaña MD -[facility] Work Phone: Start: 08-15-2024 Dr. Tevin Nicholas MD -[facility] Start: 08-15-2024 End: 08-15-2024 ambulatory Casi Topete RN [facility] Start: 08-15-2024 [facility] Start: 08-14-2024 ambulatory Angie Torres Facil ity:[facility] Start: 08-14-2024 End: 08-17-2024 Evaluation and management of inpatient Dr. Ethan Rodriguez MD Work Phone: [facility] Work Phone: Start: 08-14-2024 End: 08-17-2024 Dr. Nikolas Magaña MD -[facility] Work Phone: Start: 08-14-2024 End: 08-14-2024 ambulatory Millie Saurabha OLS Facility:[facility] Start: 08-13-2024 Dr. Nikolas Magaña MD -[facility] Phys[facility] Work Phone: Start: 08-12-2024 Dr. Nikolas Magaña MD -[facility] Work Phone: Start: 08-11-2024 Dr. Judd Galvin DO [facility] Work Phone: Start: 08-10-2024 Dr. Judd Galvin DO -[facility] Work Phone: Start: 08-09-2024 Dr. Judd Galvin DO -[facility] Work Phone: Start: 08-08-2024 Nick Barnard DO -[facility] Start: 08-08-2024 Dr. Judd Galvin DO [facility] Work Phone: Start: 08-07-2024 Dr. Judd Galvin DO - [facility] Work Phone: Start: 08-06-2024 Nick Barnard DO -[facility] Start: 08-06-2024 Dr. Judd Galvin [facility] ez Inpatient Physicians Work Phone: Start: 08-05-2024 Dr. Ivone mccarty MD [facility] In[facility] Physicians Work Phone: Start: 08-04-2024 Dr. Ivone mccarty MD [facility] In[facility] Work Phone: Start: 08-03-2024 Dr. Mar chang MD [facility] In[facility]icians Work Phone: Start: 08-03-2024 Nick Barnard DO -[facility] Start: 08-02-2024 Nick Barnard DO -[facility] Start: 08-02-2024 Dr. Mar chang MD [facility] In[facility]icians Work Phone: Start: 08-01-2024 Nick Barnard DO -[facility] Start: 08-01-2024 Dr. Kvng Watkins [facility] Work Phone: Start: 07-31-2024 ambulatory Angie Bellari Facil ity:[facility] Start: 07-31-2024 End: 08-13-2024 Evaluation and management of inpatient [facility] Facility:[facility] Start: 07-31-2024 End: 08-13-2024 Dr. Nikolas Magaña MD -[facility] Work Phone: Start: 07-30-2024 ambulatory Millie RENE Facilchantale ty:[facility] Start: 07-30-2024 Dr. Millie Massey MD -[facility] Start: 07-29-2024 Dr. Mar chang MD -[facility] Work Phone: Start: 07-28-2024 Dr. [...] End: 07-29-2024 Evaluation and management of inpatient [facility] Facility:[facility] Start: 07-23-2024 End: 07-29-2024 Dr. Mar Mead MD -Medical Surgical 3 Work Phone: Start: 07-18-2024 End: 07-18-2024 Emergency department patient visit Sheldon Toribio Facility:[facility] Start: 07-18-2024 End: 07-18-2024 Dr. Sheldon Toribio MD -Emergency Departmen t Work Phone: Start: 07-18-2024 End: 07-18-2024 ambulatory Adilene Rainey Facility:[facility] Start: 07-03-2024 End: 07-03-2024 ambulatory Codie Garcia RN [facility] Comment on above: High Risk Outreach f or High Risk Start: 07-02-2024 End: 07-02-2024 ambulatory Codie Garcia RN [facility] Start: 06-25-2024 End: 06-25-2024 Dr. Millie Massey MD [facility] Start: 06-24-2024 End: 06-25-2024 ambulatory Millie Alydla OLS Facility:[facility] Start: 06-24-2024 Dr. [address] Mas[address] MD [facility] Start: 06-21-2024 End: 06-21-2024 Dr. Millie Massey MD [facility] Start: 06-21-2024 End: 06-21-2024 ambulatory Millie Saurabha OLS Facility:[facility] Start: 06-18-[address] [facility] Start: 06-07-2024 End: 06-07-2024 Dr. Millie Massey MD [facility] Start: 06-07-2024 End: 06-07-2024 ambulatory Millie Saurabha OLS Facility:[facility] Start: 06-06-2024 End: 06-06-2024 Dr. Millie Massey MD [facility] Start: 06-05-2024 End: 06-05-2024 Chioma BRIGGS -[facility] Work Phone: Start: 06-05-2024 End: 06-06-2024 ambulatory Millie Gudla OLS Facility:[facility] Start: 06-03-2024 End: 06-03-2024 Dr. Millie Massey MD [facility] Start: 06-03-2024 End: 06-03-2024 ambulatory Millie Gudla OLS Facility:[facility] Start: 05-27-2024 End: 05-27-2024 Dr. Millie Massey MD [facility] Start: 05-27-2024 End: 05-27-2024 ambulatory Ethan Rodriguez Facility:[facility] Start: 05-23-2024 End: 05-23-2024 Orders Only Edenilson Guerra DO Work Phone: [facility] Comment on above: Abdominal aortic ane urysm (AAA) without rupture, unspecified part (HCC) (Primary Dx) Start: 05-03-2024 ambulatory Jeffery Veloz Facility :[facility] Start: 04-30-2024 End: 04-30-2024 Dr. Jeffery Veloz MD -[facility] Work Phone: Start: 04-30-2024 End: 04-30-2024 ambulatory Ethan Rodriguez Facility:[facility] Start: 04-24-2024 ambulatory Ethan RENE Facili ty:[facility] Start: 04-24-2024 Ethan Rodriguez [facility] Start: 04-17-2024 ambulatory Angie Torres Facil ity:[facility] Start: 04-17-2024 End: 04-17-2024 Dr. Angie Torres MD -Laboratory, Specimen Work Phone: Start: 04-17-2024 End: 04-17-2024 ambulatory Ethan RENE Facility:[facility] Start: 04-12-2024 End: 04-12-2024 ambulatory Millie RENE Facility:[facility] Start: 04-11-2024 End: 04-11-2024 Emergency department patient visit Ethan Rodriguez Facility:[facility] Start: 04-05-2024 End: 04-05-2024 Documentation procedure Corrina Dawn MA [facility] Start: 04-05-2024 End: 04-05-2024 Refill Ying Quispe DO Work Phone: [facility] Start: 04-04-2024 End: 04-04-2024 Postop follow up visit related to original px Cate Contreras DUPLICATOR PUNCH SET UP OPERATOR Work Phone: [facility] Comment on above: 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) (Primary Dx) Start: 04-04-2024 End: 04-04-[address] [facility] Start: 03-26-2024 ambulatory Ethan Rodriguez EDGARD Facili ty:[facility] Start: 03-21-2024 ambulatory Ethan Rodriguez Facility:[facility] Start: 03-12-2024 End: 03-20-2024 Evaluation and management of inpatient YING ZAHRA [facility] Start: 03-11-2024 End: 03-12-2024 Emergency department patient visit Ethan Rodriguez Facility:[facility] Start: 02-29-2024 End: 02-29-2024 ambulatory Ethan RENE Facility:[facility] Start: 02-16-2024 End: 02-16-2024 Refill Ying Quispe DO Work Phone: [facility] Comment on above: Hypothyroidism, unsp ecified type Start: 01-19-2024 End: 02-25-2024 Evaluation and management of inpatient [facility] Start: 01-17-2024 End: 01-17-2024 Documentation procedure Rafaela Garcias RN [facility] Start: 01-11-2024 End: 01-11-2024 Documentation procedure Rafaela Garcias RN [facility] Start: 01-11-2024 [facility] Start: 01-09-2024 End: 01-09-2024 Postop follow up visit related to original px Sarath Rey MD Work Phone: [facility] Comment on above: 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) (Primary Dx) Start: 01-09-2024 End: 01-09-2024 [facility] Start: 01-09-2024 End: 01-09-2024 ambulatory SARATH REY [facility] Start: 01-08-2024 End: 01-08-2024 Refill Ray Guido RN [facility] Comment on above: Medication Refill 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) (Primary Dx); Elevated serum creatinine Start: 01-05-2024 End: 01-05-2024 Orders Only Ray Guido RN [facility] Comment on above: 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) (Primary Dx); Postoperative leak Start: 01-03-2024 End: 01-03-2024 Anticoagulant drug monitoring Michelle Littlejohn RPh,PharmD Work Phone: [facility] Start: 01-03-2024 End: 01-03-2024 Patient encounter procedure Lita Gu MD Work Phone: [facility] Comment on above: Acute deep vein thro mbosis (DVT) of axillary vein of left upper extremity (HCC) (Primary Dx) Start: 01-03-2024 End: 01-03-2024 Home visit Makenzie Garza RN [facility] Comment on above: SN HH NON-OASIS AGEN CY DISCHARGE Start: 01-03-2024 End: 01-08-2024 ambulatory [facility] Start: 01-02-2024 End: 01-02-2024 Home visit Makenzie Garza RN [facility] Comment on above: TELEPHONE ENCOUNTER Start: 12-27-2023 End: 12-27-2023 Anticoagulant drug monitoring Michelle Littlejohn RPh,PharmD Work Phone: [facility] Start: 12-27-2023 End: 12-27-2023 Patient encounter procedure Lita Gu MD Work Phone: [facility] Comment on above: Acute deep vein thro mbosis (DVT) of axillary vein of left upper extremity (HCC) (Primary Dx) Start: 12-27-2023 End: 12-28-2023 Home visit Nahid Lindsay PT 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 Start: 12-27-2023 End: 12-31-2023 ambulatory [facility] Start: 12-26-2023 End: 12-26-2023 Postop follow up visit related to original px Sarath Rey MD Work Phone: [facility] Comment on above: PVD (peripheral vasc ular disease) (HCC) (Primary Dx); 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); Renal insufficiency Start: 12-26-2023 End: 12-26-2023 ambulatory SARATH REY [facility] Start: 12-25-2023 End: 12-25-2023 Home visit Nahid Wheeler [facility] Comment on above: SLOOP CAPTAIN ROUTINE VISIT Start: 12-21-2023 End: 12-25-2023 Transcribe Orders Michelle Littlejohn RPh,PharmD Work Phone: [facility] Comment on above: Acute deep vein thro mbosis (DVT) of axillary vein of left upper extremity (HCC) (Primary Dx) Start: 12-20-2023 End: 12-20-2023 Home visit Adilene Calvinoliver [facility] Comment on above: [facility] ROUTINE SLOOP CAPTAIN ROUTINE VISIT Start: 12-20-2023 ambulatory [facility] Start: 12-18-2023 End: 12-18-2023 Home visit Ernestina Moody [facility] Comment on above: SLOOP CAPTAIN ROUTINE VISIT Start: 12-14-2023 End: 12-14-2023 Home visit Ernestina Moody [facility] Comment on above: SLOOP CAPTAIN ROUTINE VISIT Start: 12-13-2023 End: 12-13-2023 Anticoagulant drug monitoring Michelle Littlejohn RPh,PharmD Work Phone: [facility] Start: 12-13-2023 End: 12-13-2023 Patient encounter procedure Lita Gu MD Work Phone: [facility] Comment on above: Acute deep vein thro mbosis (DVT) of axillary vein of left upper extremity (HCC) (Primary Dx) Start: 12-13-2023 End: 12-13-2023 Home visit Makenzie Garza RN [facility] Comment on above: [facility] ROUTINE VISIT SLOOP CAPTAIN ROUTINE VISIT Start: 12-13-2023 End: 12-17-2023 ambulatory [facility] Start: 12-11-2023 End: 12-11-2023 ambulatory TYLOR KRUGER [facility] Start: 12-10-2023 End: 12-10-2023 Home visit Ernestina Moody [facility] Comment on above: CASE COMMUNICATION Start: 12-06-2023 End: 12-10-2023 Refill Tylor Kruger MD Work Phone: [facility] Comment on above: Medication Refill Acute deep vein thro mbosis (DVT) of axillary vein of left upper extremity (HCC) (Primary Dx) SN ROUTINE VISIT PT REASSESSMENT Start: 12-05-2023 End: 12-05-2023 Home visit Ernestina Moody [facility] Comment on above: SLOOP CAPTAIN ROUTINE VISIT Start: 11-29-2023 End: 11-29-2023 Anticoagulant drug monitoring Adilene Bryan [facility],PharmD Work Phone: [facility] Start: 11-29-2023 End: 11-29-2023 Patient encounter procedure Lita Gu MD Work Phone: [facility] Comment on above: Acute deep vein thro mbosis (DVT) of axillary vein of left upper extremity (HCC) (Primary Dx) Start: 11-29-2023 End: 11-29-2023 Home visit Ernestina Moody [facility] Comment on above: SLOOP CAPTAIN ROUTINE VISIT [facility] ROUTINE OT NON-OASIS/DISCIPL INE DISCHARGE Start: 11-29-2023 End: 12-03-2023 ambulatory ADILENE BRYAN [facility] Start: 11-28-2023 End: 11-28-2023 ambulatory ABIGAIL [facility] Start: 11-28-2023 End: 11-28-2023 Home visit Ernestina Moody [facility] Comment on above: SLOOP CAPTAIN ROUTINE VISIT Start: 11-27-2023 End: 11-27-2023 Home visit Giovany Montalvo [facility] Comment on above: COLEMAN ROUTINE VISIT Start: 11-24-2023 End: 11-24-2023 Home visit Giovany Montalvo [facility] Comment on above: COLEMAN ROUTINE VISIT Start: 11-23-2023 End: 11-23-2023 Office outpatient visit 25 minutes Ying Quispe DO Work Phone: [facility] Comment on above: Orthostatic hypotens ion (Primary Dx); General weakness Start: 11-23-2023 End: 11-23-2023 ambulatory YING QUISPE [facility] Start: 11-23-2023 End: 11-23-2023 Home visit Giovany Kanez [facility] Comment on above: COLEMAN ROUTINE VISIT SLOOP CAPTAIN ROUTINE VISIT Start: 11-22-2023 End: 11-22-2023 Office outpatient visit 15 minutes [facility] Work Phone: [facility] Comment on above: Ischemia of toe (Vikki farrukh Dx); PVD (peripheral vascular disease) (HCC) Start: 11-22-2023 End: 11-22-2023 [facility] Start: 11-21-2023 End: 11-25-2023 Orders Only Tylor rKuger MD Work Phone: [facility] Comment on above: PVD (peripheral vasc ular disease) (HCC) (Primary Dx) Acute deep vein thro mbosis (DVT) of axillary vein of left upper extremity (HCC) (Primary Dx) 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 SLOOP CAPTAIN ROUTINE VISIT Start: 11-20-2023 End: 11-20-2023 Refill Ying Quispe DO Work Phone: [facility] Start: 11-17-2023 End: 11-17-2023 Home visit Giovany Princeez [facility] Comment on above: COLEMAN ROUTINE VISIT Start: 11-17-2023 End: 11-17-2023 Office outpatient visit 25 minutes Tylor Kruger MD Work Phone: [facility] Comment on above: 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) (Primary Dx); PVD (peripheral vascular disease) (HCC) Start: 11-17-2023 End: 11-20-2023 ambulatory TYLOR KRUGER [facility] Ambulatory Start: 11-16-2023 End: 11-16-2023 Home visit Ernestina Moody [facility] Comment on above: SLOOP CAPTAIN ROUTINE VISIT Start: 11-16-2023 End: 11-16-2023 ambulatory TYLOR KRUGER [facility] Start: 11-14-2023 End: 11-14-2023 Anticoagulant drug monitoring Adilene Bryan [facility],PharmD Work Phone: [facility] Start: 11-14-2023 End: 11-14-2023 Patient encounter procedure Lita Gu MD Work Phone: [facility] Comment on above: Acute deep vein thro mbosis (DVT) of axillary vein of left upper extremity (HCC) (Primary Dx) Start: 11-14-2023 End: 11-14-2023 Home visit Adilene Albright YARN PREPARATION SUPERVISOR [facility] Comment on above: YARN PREPARATION SUPERVISOR ROUTINE PT INITIAL EVALUATIO N Start: 11-14-2023 End: 11-18-2023 ambulatory ADILENE BRYAN [facility] Start: 11-13-2023 End: 11-13-2023 Home visit Giovany MONDRAGON [facility] Comment on above: COLEMAN ROUTINE VISIT Start: 11-08-2023 End: 11-08-2023 Anticoagulant drug monitoring Michelle Littlejohn [facility],PharmD Work Phone: [facility] Start: 11-08-2023 End: 11-08-2023 Patient encounter procedure Lita Gu MD Work Phone: [facility] Comment on above: Acute deep vein thro mbosis (DVT) of axillary vein of left upper extremity (HCC) (Primary Dx) Start: 11-08-2023 End: 11-12-2023 ambulatory YINGSAM SWEENEY BRITTANEY [facility] Start: 11-08-2023 End: 11-08-2023 Home visit Antonietta Monk LPN [facility] Comment on above: 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 OT INITIAL EVALUATIO N Start: 11-06-2023 End: 11-06-2023 Home visit Makenzie Garza RN [facility] Comment on above: SN HH NON-OASIS SOC Start: 11-06-2023 ambulatory LITA GU [facility] Start: 11-03-2023 Documentation procedure Rafaela Garcias RN [facility] Start: 11-03-2023 Home visit Justine Kruger [facility] Comment on above: CASE COMMUNICATION Start: 11-02-2023 [facility] Comment on above: Hypertension, unspec ified type (Primary Dx); Orthostatic hypotension; TUUT (acute kidney injury) (HCC); Debility; Ruptured abdominal aortic aneurysm (AAA), unspecified part (HCC); Aftercare following surgery of the circulatory system Start: 11-01-2023 End: 11-01-2023 Postop follow up visit related to original px Cate Contreras DUPLICATOR PUNCH SET UP OPERATOR Work Phone: [facility] Comment on above: 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) (Primary Dx) Start: 11-01-2023 End: 11-01-2023 ambulatory CATE CONTRERAS [facility] Start: 11-01-2023 End: 01-03-2024 ambulatory PCP UNKNOWN PHYSICIAN [facility] Start: 10-31-2023 ambulatory PCP UNKNOWN PHYSICIAN [facility] Start: 10-30-2023 ambulatory PCP UNKNOWN PHYSICIAN [facility] Start: 10-29-2023 ambulatory PCP UNKNOWN PHYSICIAN [facility] Start: 10-29-2023 ambulatory PCP UNKNOWN PHYSICIAN [facility] Start: 10-28-2023 ambulatory [facility] Start: 10-27-2023 ambulatory BRONWYN N [facility] Start: 10-26-2023 ambulatory PCP UNKNOWN PHYSICIAN [facility] Start: 10-25-2023 ambulatory PCP UNKNOWN PHYSICIAN [facility] Start: 10-25-2023 ambulatory BRONWYN N [facility] Start: 10-24-2023 ambulatory [facility] Start: 10-23-2023 ambulatory BRONWYN N [facility] Start: 10-23-2023 Encounter for genera l adult medical examination without abnormal findings FRANK~[id number] ALLEN MARIE [facility] Start: 10-21-2023 ambulatory PCP UNKNOWN PHYSICIAN [facility] Start: 10-11-2023 Documentation procedure Yakelin Iqbal MA [facility] [facility] Comment on above: Ruptured abdominal a ortic aneurysm (AAA), unspecified part (HCC) (Primary Dx) Start: 10-09-2023 End: 10-20-2023 Evaluation and management of inpatient [facility] Start: 10-09-2023 End: 10-09-2023 Emergency department patient visit IZABELLA IRAHETA [facility] Start: 10-09-2023 End: 10-09-2023 ambulatory THERESA BOYKIN [facility] Start: 10-09-2023 ambulatory YING QUISPE [facility] Start: 09-28-2023 Refill Ying barber DO Work Phone: [facility] Comment on above: Hypothyroidism, unsp ecified type Start: 09-26-2023 End: 09-26-2023 Office outpatient visit 15 minutes Felicity Olson DUPLICATOR PUNCH SET UP OPERATOR Work Phone: [facility] Comment on above: Acute right-sided lo w back pain without sciatica (Primary Dx) Start: 09-26-2023 End: 09-26-2023 ambulatory FELICITY OLSON [facility] Start: 09-07-2023 End: 09-07-2023 Anticoagulant drug monitoring Michelle Littlejohn RPh,PharmD Work Phone: [facility] Start: 09-07-2023 End: 09-07-2023 Patient encounter procedure Lita Gu MD Work Phone: [facility] Comment on above: Acute deep vein thro mbosis (DVT) of axillary vein of left upper extremity (HCC) (Primary Dx) Start: 09-07-2023 End: 09-11-2023 ambulatory LITA GU [facility] Start: 08-24-2023 End: 08-24-2023 Office outpatient new 30 minutes Yfn Puckett DPM Work Phone: [facility] Neurological Physicians Comment on above: Weakness of right lo wer extremity (Primary Dx); Lumbosacral radiculopathy; Paresthesias Start: 08-24-2023 End: 08-24-2023 ambulatory THERESA BOYKIN [facility] Start: 08-10-2023 End: 08-10-2023 Anticoagulant drug monitoring Michelle Littlejohn RP,PharmD Work Phone: [facility] Start: 08-10-2023 End: 08-10-2023 Patient encounter procedure Lita Gu MD Work Phone: [facility] Comment on above: Acute deep vein thro mbosis (DVT) of axillary vein of left upper extremity (HCC) (Primary Dx) Start: 08-10-2023 End: 08-14-2023 ambulatory [facility] Start: 07-18-2023 End: 07-18-2023 Office outpatient visit 25 minutes Yfn Puckett DPRaúl Work Phone: [facility] Comment on above: Lumbosacral radiculo yanna (Primary Dx) Start: 2023 End: [facility]23 [facility] Start: 07-13-2023 End: 07-13-2023 Anticoagulant drug monitoring Justine Hodges RPh,PharmD Work Phone: [facility] Start: 07-13-2023 End: 07-13-2023 Patient encounter procedure Lita Gu MD Work Phone: [facility] Comment on above: Acute deep vein thro mbosis (DVT) of axillary vein of left upper extremity (HCC) (Primary Dx) Start: 07-13-2023 End: 2023 ambulatory [facility] Start: 07-04-2023 End: 07-04-2023 [facility] Start: 07-04-2023 End: 07-04-2023 Office outpatient new 30 minutes Yfn Puckett DPM Work Phone: [facility] Comment on above: Right-sided low back pain with right-sided sciatica, unspecified chronicity (Primary Dx); Idiopathic peripheral neuropathy Start: 06-19-2023 Refill Stephanie Lozano RN [facility] Comment on above: History of deep veno us thrombosis Start: 06-07-2023 End: 06-07-2023 Anticoagulant drug monitoring Adilene Bryan RPh,PharmD Work Phone: [facility] Start: 06-07-2023 End: 06-07-2023 Patient encounter procedure Lita Gu MD Work Phone: [facility] Comment on above: Acute deep vein thro mbosis (DVT) of axillary vein of left upper extremity (HCC) (Primary Dx) Start: 05-23-2023 Refill Kenna Vigil RN [facility] Comment on above: History of deep veno us thrombosis Start: 05-03-2023 End: 05-03-2023 Anticoagulant drug monitoring Adilene Bryan RPh,PharmD Work Phone: [facility] Start: 05-03-2023 End: 05-03-2023 Patient encounter procedure Lita Gu MD Work Phone: [facility] Comment on above: Acute deep vein thro mbosis (DVT) of axillary vein of left upper extremity (HCC) (Primary Dx) Start: 04-24-2023 End: 04-24-2023 Office outpatient visit 15 minutes Ying Quispe DO Work Phone: [facility] Comment on above: Hypothyroidism, unsp ecified type (Primary Dx) Start: 04-05-2023 End: 04-05-2023 Anticoagulant drug monitoring Michelle Littlejohn [facility],PharmD Work Phone: [facility] Start: 04-05-2023 End: 04-05-2023 Patient encounter procedure Lita Gu MD Work Phone: [facility] Comment on above: Acute deep vein thro mbosis (DVT) of axillary vein of left upper extremity (HCC) (Primary Dx) Start: 03-08-2023 End: 03-08-2023 Anticoagulant drug monitoring Michelle Littlejohn RPh,PharmD Work Phone: [facility] Start: 03-08-2023 End: 03-08-2023 Patient encounter procedure Lita Gu MD Work Phone: [facility] Comment on above: Acute deep vein thro mbosis (DVT) of axillary vein of left upper extremity (HCC) (Primary Dx) Start: 02-15-2023 End: 02-15-2023 Anticoagulant drug monitoring Adilene Bryan RPh,PharmD Work Phone: [facility] Start: 02-15-2023 End: 02-15-2023 Patient encounter procedure Lita Gu MD Work Phone: [facility] Comment on above: Acute deep vein thro mbosis (DVT) of axillary vein of left upper extremity (HCC) (Primary Dx) Start: 02-13-2023 End: 02-13-2023 ambulatory YINGSAM QUISPE [facility] Start: 02-01-2023 End: 02-01-2023 Anticoagulant drug monitoring Michelle Littlejohn RPh,PharmD Work Phone: [facility] Start: 02-01-2023 End: 02-01-2023 Patient encounter procedure Lita Gu MD Work Phone: [facility] Comment on above: Acute deep vein thro mbosis (DVT) of axillary vein of left upper extremity (HCC) (Primary Dx) Start: 01-25-2023 End: 01-25-2023 Office outpatient visit 25 minutes Ying Quispe Work Phone: [facility] Comment on above: Hypothyroidism, unsp ecified type (Primary Dx); Familial hypercholesteremia; Encounter for screening mammogram for malignant neoplasm of breast Start: 01-16-2023 End: 01-16-2023 Anticoagulant drug monitoring Lavon Mcmullen RP,PharmD Work Phone: [facility] Start: 01-16-2023 End: 01-16-2023 Patient encounter procedure Lita Gu MD Work Phone: [facility] Comment on above: Acute deep vein thro mbosis (DVT) of axillary vein of left upper extremity (HCC) (Primary Dx) Start: 01-09-2023 End: 01-09-2023 Anticoagulant drug monitoring Adilene Bryan RPh,PharmD Work Phone: [facility] Start: 01-09-2023 End: 01-09-2023 Patient encounter procedure Lita Gu MD Work Phone: [facility] Comment on above: Acute deep vein thro mbosis (DVT) of axillary vein of left upper extremity (HCC) (Primary Dx) Start: 01-02-2023 End: 01-02-2023 Anticoagulant drug monitoring Michelle Littlejohn RP,PharmD Work Phone: [facility] Start: 01-02-2023 End: 01-02-2023 Patient encounter procedure Lita Gu MD Work Phone: [facility] Comment on above: Acute deep vein thro mbosis (DVT) of axillary vein of left upper extremity (HCC) (Primary Dx) Start: 12-26-2022 End: 12-26-2022 Anticoagulant drug monitoring Adilene Bryan RPh,PharmD Work Phone: [facility] Start: 12-26-2022 End: 12-26-2022 Patient encounter procedure Lita Gu MD Work Phone: [facility] Comment on above: Acute deep vein thro mbosis (DVT) of axillary vein of left upper extremity (HCC) (Primary Dx) Start: 12-19-2022 End: 12-19-2022 Anticoagulant drug monitoring Michelle Littlejohn RPh,PharmD Work Phone: [facility] Start: 12-19-2022 End: 12-19-2022 Patient encounter procedure Lita Gu MD Work Phone: [facility] Comment on above: Acute deep vein thro mbosis (DVT) of axillary vein of left upper extremity (HCC) (Primary Dx) Start: 12-12-2022 Refill Kenna Vigil RN [facility] Comment on above: History of deep veno us thrombosis (Primary Dx) Start: 12-12-2022 End: 12-12-2022 Office outpatient visit 25 minutes Lita Gu MD Work Phone: [facility] Comment on above: History of deep veno us thrombosis (Primary Dx); Reactive lymphadenopathy; Factor V Leiden mutation (HCC) Start: 12-01-2022 End: 12-01-2022 Clinical Support Jennifer Hernandez MA [facility] Comment on above: Hyperlipidemia, unsp ecified hyperlipidemia type [E78.5] (Primary Dx) Start: 11-28-2022 End: 11-28-2022 Office outpatient visit 25 minutes Ying Quispe DO Work Phone: [facility] Comment on above: Acute non-recurrent maxillary sinusitis (Primary Dx); Familial hypercholesteremia Start: 10-25-2022 End: 10-25-2022 Office outpatient visit 25 minutes Lita Gu MD Work Phone: [facility] Comment on above: History of deep veno us thrombosis (Primary Dx); Axillary lymphadenopathy; Factor V Leiden mutation (HCC) Start: 10-23-2022 Refill Ying barber DO Work Phone: [facility] Comment on above: Hypothyroidism, unsp ecified type Start: 09-27-2022 Refill Kenna Vigil RN [facility] Comment on above: Acute deep vein thro mbosis (DVT) of axillary vein of left upper extremity (HCC) Start: 09-27-2022 End: 09-27-2022 Office outpatient visit 25 minutes Lita Gu MD Work Phone: [facility] Comment on above: History of deep veno us thrombosis (Primary Dx); Current smoker; Transaminitis; Factor V Leiden mutation (HCC); Lymphadenopathy; Decreased muscle strength; Lung nodule seen on imaging study Start: 09-20-2022 Coordination of care plan Amalia barbosa Patient Navigator Start: 09-16-2022 Refill Kenna Vigil RN [facility] Comment on above: Acute deep vein thro mbosis (DVT) of axillary vein of left upper extremity (HCC) Start: 08-15-2022 End: 08-15-2022 Office outpatient visit 25 minutes Ying Quispe DO Work Phone: [facility] Comment on above: Acute deep vein thro mbosis (DVT) of axillary vein of left upper extremity (HCC) (Primary Dx) Start: 07-06-2022 End: 07-06-2022 Office consultation new/estab patient 60 min Ying Quispe DO Work Phone: [facility] Comment on above: Current smoker (Prim howard Dx); Acute deep vein thrombosis (DVT) of axillary vein of left upper extremity (HCC); Cigarette smoker; Screening for malignant neoplasm of respiratory organ Start: 06-13-2022 End: 06-13-2022 Office outpatient visit 25 minutes Ying Quispe DO Work Phone: [facility] Comment on above: Acute deep vein thro mbosis (DVT) of axillary vein of left upper extremity (HCC) (Primary Dx) Start: 06-10-2022 End: 06-11-2022 Emergency department patient visit Shira Lopez MD Work Phone: [facility] Start: 06-06-2022 End: 06-06-2022 Office outpatient visit 25 minutes Ying Quispe DO Work Phone: [facility] Comment on above: Raynaud's phenomenon without gangrene (Primary Dx); Hypothyroidism, unspecified type Start: 04-06-2022 End: 04-06-2022 Office outpatient visit 15 minutes Ying Quispe DO Work Phone: [facility] Comment on above: Acute non-recurrent maxillary sinusitis (Primary Dx) Start: 01-05-2022 End: 01-05-2022 Office outpatient visit 15 minutes Felicity Olson DUPLICATOR PUNCH SET UP OPERATOR Work Phone: [facility] Comment on above: Toe infection (Prima ry Dx) Start: 11-25-2021 End: 11-25-2021 Office outpatient visit 15 minutes Yfn Puckett DPM Work Phone: [facility] Comment on above: Idiopathic periphera l neuropathy (Primary Dx) Start: 11-18-2021 End: 11-18-2021 Patient encounter status Ying Quispe DO Work Phone: [facility] Start: 11-18-2021 End: 11-18-2021 Periodic preventive med est patient 40-64yrs Ying Quispe DO Work Phone: [facility] Comment on above: Routine general medi cherrie examination at a health care facility (Primary Dx); Post-menopause; Encounter for screening mammogram for malignant neoplasm of breast; Colon cancer screening; Hypothyroidism, unspecified type Start: 11-05-2021 Refill Ying barber DO Work Phone: [facility] Comment on above: Hypothyroidism, unsp ecified type Start: 06-21-2021 End: 06-21-2021 Office outpatient visit 25 minutes Ying Quispe DO Work Phone: [facility] Comment on above: Acute non-recurrent maxillary sinusitis (Primary Dx) Start: 06-17-2021 End: 06-17-2021 Office outpatient new 30 minutes Yfn OLIVEIRAM Work Phone: [facility] Comment on above: Ganglion cyst of lef t foot (Primary Dx); Plantar fascial fibromatosis of left foot; Plantar keratosis, acquired Start: 05-12-2021 End: 05-12-2021 Office outpatient visit 25 minutes Ying Quispe DO Work Phone: [facility] Comment on above: Hypothyroidism, unsp ecified type (Primary Dx); Hyperlipidemia, unspecified hyperlipidemia type Start: 09-29-2020 End: 09-29-2020 Office outpatient visit 25 minutes Bambi Huynh MD Work Phone: [facility] Comment on above: Hypothyroidism, unsp ecified type (Primary Dx); Hip pain Start: 09-28-2020 End: 09-28-2020 Orders Only Bambi Huynh MD Work Phone: [facility] Comment on above: Hypothyroidism, unsp ecified type (Primary Dx) Start: 08-12-2020 End: 08-12-2020 Orders Only Daisy Leannezonia Cosme Work Phone: [facility] Physician [facility] Start: 07-29-2020 Refill Bambi Huynh MD Work Phone: [facility] Start: 12-06-2019 End: 12-06-2019 Patient encounter procedure BAMBI HUYNH [facility] Start: 12-06-2019 End: 12-06-2019 Office outpatient visit 25 minutes Rebeca Fabienne Kaur Work Phone: [facility] Comment on above: Close Exposure to Co [...] 04-17-2019 End: 04-17-2019 Patient encounter procedure Bambi Lange Claus Work Phone: [facility] [...] 03-25-2019 Office outpatient visit 15 minutes Bambi Nazario Huynh Work Phone: [facility] Comment on above: Hypothyroidism, unsp ecified type (Primary Dx); Hip pain, bilateral Start: 01-14-2019 End: 01-14-2019 Office outpatient visit 25 minutes Bambi Nazario Huynh Work Phone: [facility] Comment on above: Hypothyroidism, unsp ecified type (Primary Dx); Hyperlipidemia, unspecified hyperlipidemia type; Hip pain, bilateral Start: 11-06-2018 End: 11-06-2018 Postop follow up visit related to original px Mendez Roy Work Phone: [facility] Comment on above: Trochanteric bursiti s of right hip (Primary Dx) Start: 10-12-2018 End: 10-12-2018 Postop follow up visit related to original px Татьяна Daysiiron Jenkins Work Phone: [facility] Comment on above: S/P appendectomy (Pr imary Dx) Start: 09-14-2018 End: 09-15-2018 Emergency department patient visit Rosendo Tyson Work Phone: [facility] Comment on above: Acute appendicitis, unspecified acute appendicitis type (Primary Dx); Acute appendicitis with localized peritonitis and gangrene, without perforation or abscess Start: 09-14-2018 End: 09-14-2018 Emergency department patient visit Dewayne Barlow Work Phone: [facility] Emergency Department Comment on above: Acute appendicitis, unspecified acute appendicitis type (Primary Dx) Start: 09-14-2018 End: 09-14-2018 Documentation procedure Bambi Huynh Work Phone: [facility] Start: 09-14-2018 End: 09-14-2018 Office outpatient visit 25 minutes Bambi Huynh Work Phone: [facility] Comment on above: Right lower quadrant abdominal pain (Primary Dx); Dysuria Start: 2018 End: 2018 Office outpatient visit 25 minutes Bambi Huynh Work Phone: [facility] Comment on above: Chronic left hip mehrdad n (Primary Dx); Hypothyroidism, unspecified type; Hyperlipidemia, unspecified hyperlipidemia type Start: 09-28-2017 Ambulatory Bambi Huynh Facility:[facility] Start: 09-28-2017 End: 09-28-2017 Ambulatory Bambi Huynh Work Phone: [facility] Start: 09-05-2017 Office/outpatient vi sit, new, level 3 Bambi Huynh Work Phone: [facility] Start: 07-20-2017 Ambulatory Cuauhtemoc Barrios Work Phone: [facility] Start: 07-03-2017 Office/outpatient vi sit, est, level 3 Bambi Huynh Work Phone: [facility] Procedures Date Procedure Procedure Detail Performing Clinician Start: 11-20-[address] Ethan Bradley Work Phone: Start: 11-20-2024 End: 11-20-2024 [...] mcrscp w/mnl difrntl wbc count Dr. Ethan oRdriguez MD Work Phone: Start: 11-04-2024 Hepatitis A [...] reported as:POSITIVE Performed By: #### B RC, [id number], BTS, BtABORH, [id number] ####[facility] [id number] [place], [place], [id number] Start: 08-08-2024 Computed tomography of abdomen and [...] measurement Dr. Ethan Bradley Work Phone: Start: 4 End: 07-18-2024 Blood count smear mcrscp w/mnl [...] Provider Start: 11-01-2023 Follow-up visit Follow-up CATE TODD DIANE Start: 10-25-2023 Antibody screen PCP PHYSICIAN Comment on above: Performed By: #### [id number] #### [facility] [address] [place] [address] Start: 09-07-2023 Prothrombin time Lita Gu MD [...] Lita Gu MD Work Phone: Start: 02-13-2023 Bret Bryan [facility],PharmD Work Phone: Start: 02-01-2023 Prothrombin time Lita Gu MD Work Phone: Start: 01-25-2023 Comprehensive metabolic panel Ying Guajardo DO Work Phone: Start: 01-25-2023 Lipid panel Yingsam Sweeney Brittaney DO Work Phone: Start: 01-25-2023 Lipid 1996 panel - Serum or Plasma Wilver reese Brittaney DO Work Phone: Start: 01-16-2023 Prothrombin time [...] MD Work Phone: Start: 06-10-2022 Electrocardiogram Generic [facility] Work Phone: Start: 06-10-2022 [...] Bambi Whyte PA-C Work Phone: Start: 06-10-2022 [facility] Shira Lopez MD Work Phone: Start: 06-10-2022 [...] Work Phone: Start: 12-07-2021 Mammography Felicity Olson DUPLICATOR PUNCH SET UP OPERATOR Work Phone: Start: 11-19-2021 Lipid 1996 panel [...] screening for protein eGFR - Kidney Disease [facility] Start: 12-20-2024 Screening for malignant neoplasm of colon [facility] Start: 09-15-2024 [facility] Start: 09-15-2024 [facility] Start: 08-31-2024 Oxygen therapy [facility] Start: 08-31-2024 Administration of blood product [facility] Start: 08-31-2024 [facility] Start: 08-31-2024 Following clinical pathway protocol [facility] Start: 08-31-2024 Transfusion of blood product [facility] Start: 08-17-2024 Patient discharge [facility] Start: 08-16-2024 [facility] Start: 08-16-2024 Hemodialysis care [facility] Start: 08-15-2024 Anaerobic microbial culture [facility] Start: 08-15-2024 End: 08-15-2024 [facility] Start: 08-15-2024 Care of hemodialysis equipment [facility] Start: 08-15-2024 Wound care [facility] Start: 08-15-2024 End: 08-15-2024 Microbial culture, body fluid [facility] Start: 08-15-2024 Vital signs measurements [facility] Start: 08-15-2024 Ultrasonic guidance for thoracentesis [facility] Start: 08-14-2024 Application of intermittent pneumatic compression device [facility] Start: 08-14-2024 Care regimes management [facility] Start: 08-14-2024 Notification of physician [facility] Start: 08-14-2024 End: 08-14-2024 [facility] Start: 08-14-2024 Blood culture [facility] Start: 08-14-2024 Urine culture [facility] Start: 08-14-2024 Dialysis care [facility] Start: 08-14-2024 Following clinical pathway protocol [facility] Start: 08-14-2024 Care of hemodialysis equipment [facility] Start: 08-14-2024 Ambulation without limitation [facility] Start: 08-14-2024 Application of elastic bandage [facility] Start: 08-14-2024 Assessment of risk of venous thromboembolism [facility] Start: 08-14-2024 Elevation of affected extremity [facility] Start: 08-14-2024 Insertion of catheter into peripheral vein [facility] Start: 08-14-2024 Measuring intake and output [facility] Start: 08-14-2024 Notification of physician [facility] Start: 08-14-2024 Oxygen therapy [facility] Start: 08-14-2024 Patient education [facility] Start: 08-14-2024 Providing care according to standard [facility] Start: 08-14-2024 Referral to occupational therapist [facility] Start: 08-14-2024 Referral to service [place] [facility] Start: 08-14-2024 Speech therapy assessment [facility] Start: 08-14-2024 Hemodialysis care [facility] Start: 08-14-2024 End: 08-14-2024 [facility] Start: 08-14-2024 Cell count and Differential panel - Body fluid [facility] Start: 08-14-2024 Glucose measurement, body fluid [facility] Start: 08-14-2024 Lactate dehydrogenase [Enzymatic activity/volume] in Body fluid by Pyruvate to lactate reaction [facility] Start: 08-14-2024 Microbial culture, body fluid [facility] Start: 08-14-2024 Microscopic observation [Identifier] in Body fluid by Cyto stain [facility] Start: 08-14-2024 Protein [Mass/volume] in Body fluid [facility] Start: 08-14-2024 Verification routine [facility] Start: 08-14-2024 Admission procedure [facility] Start: 08-14-2024 Referral to apron trimmer [facility] Start: 08-14-2024 Hospital admission, emergency, from emergency room, medical nature [facility] Start: 08-14-2024 [facility] Start: 08-14-2024 End: 08-14-2024 [facility] Start: 08-14-2024 Patient referral to dietitian [facility] Start: 08-13-2024 End: 08-13-2024 [facility] Start: 08-13-2024 Care of hemodialysis equipment [facility] Start: 08-13-2024 Patient discharge [facility] Start: 08-12-2024 Care regimes management [facility] Start: 08-12-2024 Notification of physician [facility] Start: 08-12-2024 [facility] Start: 08-12-2024 Administration of blood product [facility] Start: 08-12-2024 Care of hemodialysis equipment [facility] Start: 08-12-2024 Hemodialysis care [facility] Start: 08-12-2024 End: 08-12-2024 [facility] Start: 08-09-2024 End: 08-09-2024 [facility] Start: 08-09-2024 Hemodialysis care [facility] Start: 08-07-2024 End: 08-08-2024 [facility] Start: 08-07-2024 Attention to flatus tube [facility] Start: 08-07-2024 Care of hemodialysis equipment [facility] Start: 08-07-2024 Hemodialysis care [facility] Start: 08-07-2024 [facility] Start: 08-05-2024 End: 08-06-2024 [facility] Start: 08-05-2024 Referral to occupational therapist [facility] Start: 08-05-2024 Referral to service [facility] Start: 08-05-2024 Care of hemodialysis equipment [facility] Start: 08-05-2024 Hemodialysis care [facility] Start: 08-04-2024 End: 08-05-2024 [facility] Start: 08-04-2024 Administration of blood product [facility] Start: 08-04-2024 Notification of physician [facility] Start: 08-04-2024 Care regimes management [facility] Start: 08-04-2024 [facility] Start: 08-03-2024 Nil by mouth [facility] Start: 08-02-2024 End: 08-03-2024 [facility] Start: 08-02-2024 Application of intermittent pneumatic compression device [facility] Start: 08-02-2024 Care of hemodialysis equipment [facility] Start: 08-02-2024 Hemodialysis care [facility] Start: 08-01-2024 Wound care [facility] Start: 08-01-2024 Care of hemodialysis equipment [facility] Start: 08-01-2024 Hemodialysis care [facility] Start: 08-01-2024 End: 08-01-2024 [facility] Start: 07-31-2024 Consultation for treatment [facility] Start: 07-31-2024 Following clinical pathway protocol [facility] Start: 07-31-2024 Ambulation without limitation [facility] Start: 07-31-2024 Assessment of risk of venous thromboembolism [facility] Start: 07-31-2024 Insertion of catheter into peripheral vein [facility] Start: 07-31-2024 Oxygen therapy [facility] Start: 07-31-2024 Providing care according to standard [facility] Start: 07-31-2024 Referral to gastroenterology service [facility] Start: 07-31-2024 Referral to apron trimmer [facility] Start: 07-31-2024 Referral to service [facility] Start: 07-31-2024 [facility] Start: 07-31-2024 Admission procedure [facility] Start: 07-31-2024 Patient referral to dietitian [facility] Start: 07-29-2024 Patient discharge [facility] Start: 07-29-2024 Care of hemodialysis equipment [facility] Start: 07-29-2024 Hemodialysis care [facility] Start: 07-29-2024 [facility] Start: 07-26-2024 Care of hemodialysis equipment [facility] Start: 07-26-2024 Hemodialysis care [facility] Start: 07-26-2024 [facility] Start: 07-25-2024 Oxygen therapy [facility] Start: 07-25-2024 Care of hemodialysis equipment [facility] Start: 07-25-2024 Hemodialysis care [facility] Start: 07-25-2024 [facility] Start: 07-24-2024 Wound care [facility] Start: 07-23-2024 Application of intermittent pneumatic compression device [facility] Start: 07-23-2024 Assessment of risk of venous thromboembolism [facility] Start: 07-23-2024 Consultation for treatment [facility] Start: 07-23-2024 Documentation procedure [facility] Start: 07-23-2024 Insertion of catheter into peripheral vein [facility] Start: 07-23-2024 Patient referral to dietitian [facility] Start: 07-23-2024 Providing care according to standard [facility] Start: 07-23-2024 Provision of activity privileges [facility] Start: 07-23-2024 Referral to gastroenterology service [facility] Start: 07-23-2024 Referral to apron trimmer [facility] Start: 07-23-2024 Referral to occupational therapist [facility] Start: 07-23-2024 Referral to service [facility] Start: 07-23-2024 [facility] Start: 07-23-2024 Admission procedure [facility] Start: 07-18-2024 [facility] Start: 07-18-2024 [facility] Start: 02-26-2024 End: 02-26-2024 Patient encounter procedure 02/26/2024 2:00 PM EDT Office Visit [facility] [address] [place] [address] Ying Quispe DO [address] [place] [address] [facility] Start: 02-14-2024 Screening for malignant neoplasm of breast Mammogram [facility] Start: 01-30-2024 End: 01-30-2024 Patient encounter procedure 01/30/2024 3:30 PM EDT Office Visit [facility] [address], 3rd [place] [address] Sarath Rey MD [address] [place] [address] [facility] Start: 01-28-2024 COVID-19 Vaccine ( season) COVID-19 Vaccine () [facility] Start: 01-28-2024 COVID-19 Vaccine ( season) COVID-19 Vaccine ( season) [facility] Start: 01-28-2024 Influenza vaccination [facility] Start: 01-26-2024 Lipid panel Lipid Panel [facility] Start: 01-24-2024 End: 01-24-2024 Admission to same day surgery center 01/24/2024 7:10 AM EDT - 01/24/2024 11:55 AM EDT Surgery [facility] [address] [place] [address] Edenilson Guerra DO [address] [place] [address] Explant of Endograft and Open Aortic Aneurysm Repair [facility] Comment on above: Explant of Endograft and Open Aortic Ane urysm Repair Start: 01-24-2024 End: 01-24-2024 Dir rpr ruptd aneurysm abdominal aorta ANEURYSM REPAIR ABDOMINAL AORTIC (AAA) Juxtarenal abdominal aortic aneurysm, ruptured (HCC) 01/24/2024 7:10 AM EDT [facility] Start: 01-24-2024 Subsequent hospital visit by physician [facility] Periop Start: 01-23-2024 End: 01-23-2024 Patient encounter procedure 01/23/2024 3:30 PM EDT Office Visit [facility] [address], 3rd [place] [address] Sarath Rey MD [address] [place] [address] [facility] Start: 01-10-2024 End: 01-10-2024 Patient encounter procedure 01/10/2024 8:15 AM EDT Anticoag visit [facility] [address] [place] [address] [facility] Start: 01-09-2024 End: 01-09-2024 Patient encounter procedure 01/09/2024 1:00 PM EDT Office Visit [facility] [address], 3rd [place] [address] Sarath Rey MD [address] [place] [address] [facility] Start: 01-09-2024 Subsequent hospital visit by physician 01/09/2024 9:00 AM EDT Hospital Encounter [facility] CT Scan [address] [place] [address] Sarath Rey MD [address] [place] [address] [facility] CT Scan Start: 01-05-2024 End: 01-05-2024 Patient encounter procedure [facility] Start: 01-03-2024 End: 01-03-2024 Patient encounter procedure [facility] Comment on above: Acute deep vein thrombosis (DVT) of axil yusuf vein of left upper extremity (HCC) (Primary Dx) Start: 01-03-2024 End: 01-03-2024 Home visit [facility] Start: 01-02-2024 End: 01-02-2024 Home visit 01/02/2024 11:45 AM EDT Home Care Visit [address] [address] Makenzie Garza RN [facility] Start: 12-28-2023 End: 12-28-2023 Home visit 12/28/2023 9:45 AM EDT Home Care Visit [address] [address] Nahid Lindsay PT [facility] Start: 12-27-2023 End: 12-27-2023 Patient encounter procedure [facility] Start: 12-27-2023 End: 12-27-2023 Home visit [facility] Start: 12-26-2023 End: 12-26-2023 Patient encounter procedure [facility] Start: 12-25-2023 End: 12-25-2023 Home visit 12/25/2023 3:00 PM EDT Home Care Visit [address] [address] Nahid Wheeler PTA [facility] Start: 12-21-2023 End: 12-21-2023 Patient encounter procedure [facility] Comment on above: Acute deep vein thrombosis (DVT) of axil yusuf vein of left upper extremity (HCC) (Primary Dx) Start: 12-21-2023 End: 12-20-2024 INR in Platelet poor plasma by Coagulation assay PT/INR Lab STAT Acute deep vein thrombosis (DVT) of axillary vein of left upper extremity (HCC) Expected: 12/21/2023, Expires: 12/20/2024 [facility] Work Phone: Comment on above: Expected: 12/21/2023, Expires: Start: 12-20-2023 End: 12-20-2023 Patient encounter procedure 12/20/2023 5:00 PM EDT Anticoag visit [facility] [address] [facility] [address] [place] [address] [facility] Start: 12-20-2023 End: 12-20-[address] [facility] Start: 12-15-2023 COVID-19 Vaccine ( season) COVID-19 Vaccine ( season) [facility] Start: 12-15-2023 End: 12-15-2023 Home visit 12/15/2023 6:00 AM EDT Home Care Visit [address] [address] Ernestina Moody PTA [facility] Start: 12-13-2023 End: 12-13-2023 Patient encounter procedure [facility] Start: 12-13-2023 End: 12-13-[address]23 [address] [facility] Start: 12-11-2023 End: 12-11-2023 Patient encounter procedure 12/11/2023 2:00 PM EDT Appointment [facility] CT Scan [address] [place] [address] Tylor Kruger MD [address] [place] [address] [facility] CT Scan Start: 12-11-2023 End: 12-11-2023 Home visit 12/11/2023 11:00 AM EDT Home Care Visit [address] [address] Ernestina Moody PTA [facility] Start: 12-06-2023 End: 12-06-2023 Patient encounter procedure [facility] Comment on above: Acute deep vein thrombosis (DVT) of axil yusuf vein of left upper extremity (HCC) (Primary Dx) Start: 12-06-2023 End: 12-06-[address] [facility] Start: 12-05-2023 End: 12-05-2023 Home visit 12/05/2023 11:00 AM EDT Home Care Visit [address] [address] Ernestina Moody PTA [facility] Start: 11-29-2023 End: 11-29-2023 Patient encounter procedure [facility] Comment on above: Arrived Start: 11-29-2023 Depression screening using PHQ-9 (Patient Health Questionnaire 9) score [facility] Start: 11-29-2023 BEKAH-7 Screening BEKAH-7 Screening [facility] Start: 11-29-2023 End: 11-29-[address] [facility] Start: 11-28-2023 End: 11-28-2023 Patient encounter procedure 11/28/2023 3:00 PM EDT Appointment [facility] [address] [facility] [place] [address] Abigail Estrella, DUPLICATOR PUNCH SET UP OPERATOR [address] [place] [address] [facility] Start: 11-27-2023 End: 11-27-2023 Home visit 11/27/2023 4:00 PM EDT Home Care Visit [address] [address] Giovany Montalvo OTA [facility] Start: 11-24-2023 End: 11-24-2023 Home visit 11/24/2023 3:45 PM EDT Home Care Visit [address] [address] Giovany Montalvo OTA [facility] Start: 11-23-2023 End: 11-23-2023 Patient encounter procedure 11/23/2023 1:30 PM EDT Office Visit [facility] [address] [place] [address] Ying Quispe DO [address] [place] [address] [facility] Start: 11-23-2023 End: 11-23-[address]23 [address] [facility] Start: 11-22-2023 End: 11-22-2023 Patient encounter procedure 11/22/2023 2:00 PM EDT Office Visit [facility] [address] [place] [address] Abigail Estrella, DUPLICATOR PUNCH SET UP OPERATOR [address] [place] [address] Discharge Disposition: Home [facility] Start: 11-21-2023 End: 11-21-2023 Patient encounter procedure [facility] Comment on above: Acute deep vein thrombosis (DVT) of axil yusuf vein of left upper extremity (HCC) (Primary Dx) Start: 11-21-2023 End: 11-21-[address] 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) PVD (peripheral vascular disease) (HCC) Expected: 11/18/2023, Expires: 11/16/2024 [facility] Comment on above: Expected: 11/18/2023, Expires: Start: 11-17-2023 End: 11-17-2023 Home visit 11/17/2023 3:30 PM EDT Home Care Visit [address] [address] Giovany Montalvo OTA [facility] Start: 11-17-2023 End: 11-16-2024 Creatinine [Mass/volume] in Serum or Plasma Creatinine, serum Lab Routine 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) PVD (peripheral vascular disease) (HCC) Expected: 11/17/2023, Expires: 11/16/2024 [facility] Work Phone: Comment on above: Expected: 11/17/2023, Expires: Start: 11-17-2023 End: 11-17-2023 Patient encounter procedure 11/17/2023 8:00 AM EDT Office Visit [facility] [address] [place] [address] Tylor Kruger MD [address] [place] [address] [facility] Start: 11-16-2023 End: 11-16-[address] [facility] Start: 11-16-2023 End: 11-16-2023 Patient encounter procedure 11/16/2023 9:00 AM EDT Appointment [facility] [address] [facility] [place] [address] Tylor Kruger MD [address] [place] [address] [facility] Start: 11-16-2023 Subsequent hospital visit by physician 11/16/2023 9:00 AM EDT Hospital Encounter [facility] [address] [facility] [place] [address] Tylor Kruger MD [address] [place] [address] [facility] Start: 11-14-2023 End: 11-14-2023 Patient encounter procedure [facility] Comment on above: Arrived Start: 11-14-2023 End: 11-14-2023 Home visit [facility] Start: 11-14-2023 End: 11-14-2023 Home visit 11/14/2023 Home Care Visit [address] [address] Addie Purcell RN [facility] Start: 11-11-2023 End: 12-10-2024 US angiography of renal artery Ultrasound renal artery duplex, complete Vascular Ultrasound Routine Ruptured abdominal aortic aneurysm (AAA), unspecified part (HCC) Expected: 11/11/2023, Expires: 12/10/2024 [facility] Work Phone: Comment on above: Expected: 11/11/2023, Expires: Start: 11-10-2023 End: 11-10-[address]23 [address] [facility] Start: 11-10-2023 End: 11-10-2023 Home visit 11/10/2023 Home Care Visit [address] [address] Addie Purcell RN [facility] Start: 11-08-2023 End: 11-08-2023 Patient encounter procedure 11/08/2023 5:00 PM EDT Anticoag visit [facility] [address] [place] [address] Lita Gu MD [address] [place] [address] Discharge Disposition: Home [facility] Start: 11-08-2023 End: 11-08-[address] [facility] Start: 11-08-2023 End: 11-08-2023 Home visit 11/08/2023 Home Care Visit [address] [address] Addie Purcell RN [facility] Start: 11-06-2023 End: 11-06-2023 Patient encounter procedure 11/06/2023 8:30 AM EDT Appointment [address] [address] Makenzie Garza RN [facility] Start: 11-01-2023 End: 11-01-2023 Follow-up encounter 11/01/2023 1:00 PM EDT Follow-Up [facility] [address] [place] [address] Cate Contreras, DUPLICATOR PUNCH SET UP OPERATOR [address] [place] [address] [facility] Start: 10-25-2023 End: 10-25-2023 Patient encounter procedure 10/25/2023 8:30 AM EDT Office Visit [facility] [address] [place] [address] Ying Quispe DO [address] [place] [address] [facility] Start: 10-17-2023 End: 10-17-2023 Patient encounter procedure 10/17/2023 1:30 PM EDT Procedure visit [facility] [address] Medical Office Building, 2nd [place] [phone] Cuauhtemoc Barrios MD [address] [place] [address] [address] [place] [address] [facility] Start: 10-12-2023 End: 10-12-2023 Patient encounter procedure [facility] Start: 10-09-2023 End: 10-09-2023 Patient encounter procedure [facility] CT Scan Start: 09-19-2023 End: 09-19-2023 Patient encounter procedure [facility] Physician [facility] Start: 09-18-2023 End: 09-18-2023 Patient encounter procedure 09/18/2023 9:45 AM EDT Appointment [facility] MRI [address] [place] [address] Theresa Boykin PA-C [address] [place] [address] [facility] MRI Start: 09-18-2023 End: 09-18-2023 Patient encounter procedure 09/18/2023 8:40 AM EDT Appointment [facility] CT Scan [address] [place] [address] Lita Gu MD [address] [place] [address] [facility] [address] Scan Start: 09-07-2023 End: 09-07-2023 Patient encounter procedure 09/07/2023 8:15 AM EDT Anticoag visit [facility] [address] [place] [address] [facility] Start: 08-10-2023 End: 08-10-2023 Patient encounter procedure 08/10/2023 8:30 AM EDT Anticoag visit [facility] [address] [place] [address] [facility] Start: 07-18-2023 End: 07-18-2023 Patient encounter procedure 07/18/2023 9:00 AM EST Office Visit [facility] Physician [facility] [address] [place] [address] Yfn Puckett Jr., DPRaúl [address] [place] [address] [facility] Physician [facility] Podiatry Start: 2023 End: 2023 Patient encounter procedure 2023 8:00 AM EST Appointment [facility] Heart & Vascular Physicians [address] [place] [address] [place] [phone] Yfn Puckett Jr., DPM [address] [place] [address] [facility] Heart [facility] Vascular Physicians Start: 07-13-2023 End: 07-13-2023 Patient encounter procedure 07/13/2023 8:15 AM EST Anticoag visit [facility] [address] [place] [address] [facility] Start: 06-07-2023 End: 06-07-2023 Patient encounter procedure 06/07/2023 8:15 AM EST Anticoag visit [facility] [address] [place] [address] [facility] Start: 06-06-2023 Depression screening using PHQ-9 (Patient Health Questionnaire 9) score Depression Screening (PHQ-2/9) [facility] Start: 06-06-2023 BEKAH-7 Screening BEKAH-7 Screening [facility] Start: 05-03-2023 End: 05-03-2023 Patient encounter procedure 05/03/2023 8:15 AM EST Anticoag visit [facility] [address] [place] [address] [facility] Start: 04-24-2023 End: 04-24-2023 Patient encounter procedure 04/24/2023 11:30 AM EST Office Visit [facility] Primary Care Physicians [address] [place] [address] Ying Quispe DO [address] [place] [address] [facility] Primary Care Physicians Start: 04-10-2023 End: 04-10-2023 Patient encounter procedure 04/10/2023 8:15 AM EST Office Visit [facility] Cancer Physicians [address] [place] [address] Lita Gu MD [address] [place] [address] [facility] Cancer Physicians Start: 04-05-2023 End: 04-05-2023 Patient encounter procedure 04/05/2023 8:00 AM EST Anticoag visit [facility] [address] [facility] [address] [place] [address] [facility] Start: 03-08-2023 End: 03-08-2023 Patient encounter procedure 03/08/2023 8:00 AM EDT Anticoag visit [facility] [address] [facility] [address] [place] [address] [facility] Start: 02-15-2023 End: 02-15-2023 Patient encounter procedure 02/15/2023 8:00 AM EDT Anticoag visit [facility] [address] [facility] [address] [place] [address] [facility] Start: 02-13-2023 End: 02-13-2023 Patient encounter procedure 02/13/2023 9:30 AM EDT Appointment [facility] Mammography [address] [place] [phone] Ying Quispe, [address] [place] [address] [facility] Mammography Start: 02-08-2023 End: 03-27-2024 MG Breast - bilateral Screening Mammography Screening Jose Bilateral Imaging Routine Encounter for screening mammogram for malignant neoplasm of breast Expected: 02/08/2023, Expires: 03/27/2024 [facility] Comment on above: Expected: 02/08/2023, Expires: Start: 02-03-2023 End: 02-03-2023 Patient encounter procedure 02/03/2023 11:00 AM EDT Office Visit [facility] Neurological Physicians [address] Medical Office Building, 2nd [place] [address] Lita Gu MD [address] [place] [address] Nazario Almeida MD [address] [address] [facility] Neurological Physicians Start: 02-01-2023 End: 02-01-2023 Patient encounter procedure 02/01/2023 8:00 AM EDT Anticoag visit [facility] [address] [place] [address] [facility] Start: 01-27-2023 COVID-19 Vaccine ( season) COVID-19 Vaccine () [facility] Start: 01-27-2023 Influenza vaccination [facility] Start: 01-25-2023 End: 01-25-2023 Patient encounter procedure 01/25/2023 3:45 PM EDT Office Visit [facility] Primary Care Physicians [address] [place] [address] Ying Quispe DO [address] [place] [address] [facility] Primary Care Physicians Start: 01-23-2023 End: 01-23-2023 Patient encounter procedure 01/23/2023 10:30 AM EDT Anticoag visit [facility] [address] [place] [address] [facility] Start: 01-16-2023 End: 01-16-2023 Patient encounter procedure 01/16/2023 8:15 AM EDT Anticoag visit [facility] [address] [place] [address] [facility] Start: 01-09-2023 End: 01-09-2023 Patient encounter procedure 01/09/2023 8:00 AM EDT Anticoag visit [facility] [address] [place] [address] [facility] Start: 01-05-2023 Depression screening using PHQ-9 (Patient Health Questionnaire 9) score Depression Screening (PHQ-2/9) [facility] Start: 01-05-2023 BEKAH-7 Screening BEKAH-7 Screening [facility] Start: 01-02-2023 End: 01-02-2023 Patient encounter procedure 01/02/2023 7:30 AM EDT Anticoag visit [facility] [address] [facility] [address] [place] [address] [facility] Start: 12-26-2022 End: 12-26-2022 Patient encounter procedure 12/26/2022 8:15 AM EDT Anticoag visit [facility] [address] [facility] [address] [place] [address] [facility] Start: 12-19-2022 End: 12-19-2022 Patient encounter procedure 12/19/2022 7:45 AM EDT Anticoag visit [facility] [address] [facility] [address] [place] [address] Lita Gu MD [address] [place] [address] [facility] Start: 12-12-2022 End: 12-12-2022 Patient encounter procedure 12/12/2022 9:30 AM EDT Office Visit [facility] Cancer Physicians [address] [place] [address] Lita Gu MD [address] [place] [address] [facility] Cancer Physicians Start: 12-07-2022 Screening for malignant neoplasm of breast Mammogram [facility] Start: 12-01-2022 End: 12-01-2022 Clinical Support 12/01/2022 8:00 AM EDT Clinical Support [facility] Primary Care Physicians [place] [address] [facility] Primary Care Physicians Start: 11-28-2022 End: 11-28-2022 Patient encounter procedure 11/28/2022 4:15 PM EDT Office Visit [facility] Primary Care Physicians [address] [place] [address] [employer] Quispesam Sweeney [address] [place] [address] [facility] Primary Care Physicians Start: 11-24-2022 End: 11-24-2022 Patient encounter procedure 11/24/2022 Office Visit Primary Care Ying Quispe [address] [place] [address] [facility] Primary Care Physicians Start: 11-21-2022 End: 11-21-2022 Patient encounter procedure 11/21/2022 Office Visit Primary Care Ying Quispe [address] [place] [address] [facility] Primary Care Physicians Start: 11-19-2022 Lipid panel Lipid Panel [facility] Start: 11-18-2022 History and physical examination, annual for health maintenance Wellness Visit [facility] Start: 11-08-2022 End: 10-26-[address] CT [address] Lymph Node CT Biopsy Lymph Node Imaging Routine History of deep venous thrombosis Axillary lymphadenopathy Expected: 11/08/2022, Expires: 10/26/2023 [facility] Work Phone: Comment on above: Expected: 11/08/2022, Expires: Start: 10-25-2022 End: 10-25-2022 Patient encounter procedure 10/25/2022 10:45 AM EDT Office Visit [facility] Cancer Physicians [address] [place] [address] Lita Gu MD [address] [place] [address] [facility] Cancer Physicians Start: 10-18-2022 End: 09-27-2023 MR Brain With And Without Contrast MR Brain With And Without Contrast Imaging Routine History of deep venous thrombosis Current smoker Transaminitis Factor V Leiden mutation (HCC) Lymphadenopathy Decreased muscle strength Lung nodule seen on imaging study Expected: 10/18/2022 (Approximate), Expires: 09/27/2023 [facility] Comment on above: Expected: 10/18/2022 (Approximate), Expi res: 09/27/2023 Start: 10-18-2022 End: 09-28-2023 PET Tumor Imaging With CT Skull To Thigh PET Tumor Imaging With CT Skull To Thigh Imaging Routine History of deep venous thrombosis Current smoker Transaminitis Factor V Leiden mutation (HCC) Lymphadenopathy Decreased muscle strength Lung nodule seen on imaging study Expected: 10/18/2022 (Approximate), Expires: 09/28/2023 [facility] Work Phone: Comment on above: Expected: 10/18/2022 (Approximate), Expi res: 09/28/2023 Start: 09-27-2022 End: 09-27-2022 Patient encounter procedure [facility] Cancer Physicians Start: 09-20-2022 End: 09-20-2022 Patient encounter procedure 09/20/2022 11:30 AM EDT Office Visit [facility] Primary Care Physicians [address] [place] [address] Ying Quispe DO [address] [place] [address] [facility] Primary Care Physicians Start: 09-15-2022 End: 09-15-2022 Patient encounter procedure 09/15/2022 Appointment Radiology Lita Gu MD [facility] [place] [address] [facility] CT Scan Start: 09-14-2022 End: 07-07-2023 Complete blood count with white cell differential, manual CBC and Differential Lab Routine Acute deep vein thrombosis (DVT) of axillary vein of left upper extremity (HCC) Current smoker Cigarette smoker Screening for malignant neoplasm of respiratory organ Expected: 09/14/2022 (Approximate), Expires: 07/07/2023 [facility] Work Phone: Comment on above: Expected: 09/14/2022 (Approximate), Expi res: 07/07/2023 Start: 09-14-2022 End: 07-07-2023 Comprehensive metabolic 2000 panel - Serum or Plasma Comprehensive Metabolic Panel Lab Routine Acute deep vein thrombosis (DVT) of axillary vein of left upper extremity (HCC) Current smoker Cigarette smoker Screening for malignant neoplasm of respiratory organ Expected: 09/14/2022 (Approximate), Expires: 07/07/2023 [facility] Comment on above: Expected: 09/14/2022 (Approximate), Expi res: 07/07/2023 Start: 09-14-2022 End: 07-06-2023 D-dimer assay, quantitative D-Dimer, Quantitative Lab Routine Acute deep vein thrombosis (DVT) of axillary vein of left upper extremity (HCC) Current smoker Cigarette smoker Screening for malignant neoplasm of respiratory organ Expected: 09/14/2022 (Approximate), Expires: 07/06/2023 [facility] Comment on above: Expected: 09/14/2022 (Approximate), Expi res: 07/06/2023 Start: 09-14-2022 End: 07-06-2023 Low dose computed tomography of thorax CT Lung Cancer Screening Imaging Routine Acute deep vein thrombosis (DVT) of axillary vein of left upper extremity (HCC) Current smoker Cigarette smoker Screening for malignant neoplasm of respiratory organ Expected: 09/14/2022, Expires: 07/06/2023 [facility] Comment on above: Expected: 09/14/2022, Expires: Start: 09-12-2022 End: 09-12-2022 Patient encounter procedure 09/12/2022 Office Visit Primary Care Ying Quispe DO [address] [place] [address] [facility] Primary Care Physicians Start: 2022 Respiratory Syncytial Virus Immunization: Risk, 60-74 Risk, or 75+ (1 - Risk 60-74 years 1-dose series) Respiratory Syncytial Virus Immunization: Risk, 60-74 Risk, or 75+ (1 - Risk 60-74 years 1-dose series) [facility] Start: 06-13-2022 End: 06-13-2022 Patient encounter procedure 06/13/2022 Office Visit Primary Care Ying Quispe DO [address] [place] [address] [facility] Primary Care Physicians Start: 05-12-2022 Depression screening using PHQ-9 (Patient Health Questionnaire 9) score Depression Screening (PHQ-2/9) [facility] Start: 05-12-2022 BEKAH-7 Screening BEKAH-7 Screening [facility] Start: 01-27-2022 Influenza vaccination [facility] Start: 01-13-2022 End: 01-13-2022 Patient encounter procedure 01/13/2022 Office Visit PodiatrYfn Pedro Jr., YELITZA [address] [place] [address] [facility] Physician Group Podiatry Start: 12-07-2021 Subsequent hospital visit by physician 12/07/2021 Hospital Encounter Radiology Ying Quispe DO [address] [place] [address] [facility] Mammography Start: 12-07-2021 End: 12-07-2021 Patient encounter procedure 12/07/2021 Appointment Radiology Ying Quispe DO [address] [place] [address] [facility] Start: 11-25-2021 End: 11-25-2021 Patient encounter procedure 11/25/2021 Office Visit PodiatrYfn Pedro Jr., YELITZA [address] [place] [address] [facility] Physician Group Podiatry Start: 11-24-2021 End: 11-24-2021 Patient encounter procedure 11/24/2021 Office Visit Primary Care Ying Quispe DO [address] [place] [address] [facility] Primary Care Physicians Start: 11-18-2021 End: 11-18-2021 Patient encounter procedure 11/18/2021 Office Visit Primary Care Ying Quispe DO [address] [place] [address] [facility] Primary Care Physicians Start: 11-11-2021 End: 11-11-2021 Patient encounter procedure 11/11/2021 Office Visit Podiatry Yfn Puckett Jr., DPRaúl [address] [place] [address] [facility] Physician [facility] Podiatry Start: 09-29-2021 Depression screening using PHQ-9 (Patient Health Questionnaire 9) score Depression Screening (PHQ9) [facility] Start: 07-22-2021 End: 07-22-2021 Patient encounter procedure 07/22/2021 Office Visit Podiatry Yfn Puckett Jr., YELITZA [address] [place] [address] [facility] Physician [facility] Podiatry Start: 06-21-2021 End: 06-21-2021 Patient encounter procedure 06/21/2021 Office Visit Primary Care Ying Quispe DO [address] [place] [address] [facility] Primary Care Physicians Start: 06-21-2021 BEKAH-7 Screening BEKAH-7 Screening [facility] Start: 04-15-2021 End: 04-15-2021 Patient encounter procedure 04/15/2021 Office Visit Primary Care Bambi Huynh MD [address] [place] [address] [phone] [facility] Physician [facility] Primary Care Start: 01-27-2021 Influenza vaccination [facility] Start: 09-29-2020 End: 09-29-2020 Patient encounter procedure 09/29/2020 Office Visit Primary Care Bambi Huynh MD [address] [place] [address] [phone] [facility] Physician Group Primary Care Start: 01-28-2020 Influenza vaccination given Sequential Influenza Vaccine (#1) [facility] Start: 01-24-2020 History and physical examination, annual for health maintenance Wellness Visit [facility] Comment on above: Postponed from 1965 (Patient Does Not Have Time) Start: 01-24-2020 Tetanus vaccination [facility] Comment on above: Postponed from 1962 (Patient Does Not Have Time) Start: 01-15-2020 Administration of herpes zoster vaccine Zoster Vaccines (1 of 2) [facility] Comment on above: Postponed from 2012 (Treatment Not Available) Start: 01-15-2020 Depression screening using PHQ-9 (Patient Health Questionnaire 9) score DEPRESSION SCREENING (PHQ9) [facility] Start: 12-21-2019 Lipid panel Lipid Panel [facility] Start: 11-26-2019 Influenza vaccination given SEQUENTIAL INFLUENZA VACCINE (#1) [facility] Comment on above: Postponed from 01/27/2019 (Patient Refus ed) Start: 09-23-2019 End: 09-23-2019 Office Visit 09/23/2019 Office Visit Primary Care Bambi Huynh MD [address] [place] [address] [phone] [facility] Physician Group Primary Care Start: 07-26-2019 Protein mass conc Mammogram [facility] Comment on above: Postponed from 07/04/2017 (Patient Does Not Have Time) Start: 07-26-2019 Screening for osteoporosis DEXA SCAN [facility] Comment on above: Postponed from 1962 (Patient Does Not Have Time) Start: 07-26-2019 Screening mammography Mammogram [facility] Comment on above: Postponed from 07/04/2017 (Patient Does Not Have Time) Start: 07-25-2019 Screening for malignant neoplasm of cervix PAP SMEAR [facility] Comment on above: Postponed from 1962 (Patient Does Not Have Time) Start: 05-01-2019 End: 05-01-2019 Treatment 05/01/2019 Treatment Rehabilitation Bambi Huynh MD [address] [place] [address] [phone] Fuad Pisano, PT [facility] Start: 04-29-2019 End: 04-29-2019 Treatment 04/29/2019 Treatment Rehabilitation Bambi Huynh MD [address] [facility] [address] [place] [address] [phone] Tisha Do [facility] Start: 04-24-2019 End: 04-24-2019 Treatment 04/24/2019 Treatment Rehabilitation Bambi Huynh MD [address] [place] [address] [phone] Soo Walls [facility] Start: 04-24-2019 End: 04-24-2019 Treatment 04/24/2019 Treatment Rehabilitation Bambi Huynh MD [address] [place] [address] [phone] Oh Crockett [facility] Start: 04-22-2019 End: 04-22-2019 Treatment 04/22/2019 Treatment Rehabilitation Bambi Huynh MD [address] [facility] [place] [address] [phone] Tisha Do [facility] Start: 04-17-2019 End: 04-17-2019 Treatment 04/17/2019 Treatment Rehabilitation Bambi Huynh MD [address] [facility] [place] [address] [phone] Leanne Gomes [facility] Start: 04-15-2019 End: 04-15-2019 Treatment 04/15/2019 Treatment Rehabilitation Bambi Huynh MD [address] [place] [address] [phone] Tisha Do [facility] Start: 04-10-2019 End: 04-10-2019 Treatment 04/10/2019 Treatment Rehabilitation Bambi Huynh MD [address] [facility] [address] [place] [address] Eliseo, Leanne, [facility] Start: 03-26-2019 End: 03-26-2019 Office Visit 03/26/2019 Office Visit Primary Care Bambi Huynh MD [address] [place] [address] [phone] [facility] Physician Group Primary Care Start: 01-27-2019 Influenza vaccination given SEQUENTIAL INFLUENZA VACCINE (#1) [facility] Start: 01-15-2019 End: 01-15-2019 Office Visit 01/15/2019 Office Visit Primary Care Bambi Huynh MD [address] [place] [address] [phone] [facility] Group Primary Care Start: 10-30-2018 End: 10-30-2018 Office Visit 10/30/2018 Office Visit Sports Medicine Mendez Roy MD [address] [place] [address] [phone] [facility] Orthopedic & Sports Medicine Physicians Start: 09-06-2018 History and physical examination, annual for health maintenance ANNUAL EXAM [facility] Comment on above: Postponed from 1962 (Patient Does Not Have Time) Start: 01-01-2018 End: 01-01-2018 Ambulatory 01/01/2018 Office Visit Primary Care Bambi Huynh MD [address] [place] [address] [phone] [facility] Physician [facility] Primary Care Start: 07-04-2017 Screening for malignant neoplasm of breast Mammogram [facility] Start: 07-04-2017 Screening mammography MAMMOGRAM [facility] Work Phone: Start: 2012 Administration of herpes zoster vaccine Zoster Vaccines (1 of 2) [facility] Start: 2012 Screening for malignant neoplasm of colon [facility] Start: 1992 Screening for malignant neoplasm of cervix [facility] Start: 1983 Screening for malignant neoplasm of cervix Pap Smear [facility] Start: 1981 Pneumococcal Vaccine: Age 50+ (1 of 2 - PCV) Pneumococcal Vaccine: Age 50+ (1 of 2 - PCV) [facility] Start: 1981 Pneumococcal Vaccine: Ped or At-Risk (1 of 2 - PCV) Pneumococcal Vaccine: Ped or At-Risk (1 of 2 - PCV) [facility] Start: 1978 COVID-19 Vaccine (1 of 2) COVID-19 Vaccine (1 of 2) [facility] Start: 1978 COVID-19 Vaccine (1) COVID-19 Vaccine (1) [facility] Start: 1977 HIV screening HIV Screening [facility] Start: 1974 Adolescent depression screening assessment Depression Screening (PHQ9) [facility] Start: 1974 COVID-19 Vaccine (1) COVID-19 Vaccine (1) [facility] Start: 1974 Depression screening using PHQ-9 (Patient Health Questionnaire 9) score Depression Screening (PHQ9) [facility] Start: 1972 Urine screening for protein Urine (micro)albumin/creatinine ratio - Kidney Disease [facility] Start: 1968 Pneumococcal Vaccine: Ped or At-Risk (1 - PCV) Pneumococcal Vaccine: Ped or At-Risk (1 - PCV) [facility] Start: 1968 Pneumococcal Vaccine: Ped or At-Risk (1 of 2 - PCV) Pneumococcal Vaccine: Ped or At-Risk (1 of 2 - PCV) [facility] Start: 1968 Pneumococcal Vaccine: Ped or At-Risk (1 of 2 - PPSV23) Pneumococcal Vaccine: Ped or At-Risk (1 of 2 - PPSV23) [facility] Start: 1967 COVID-19 Vaccine (#1) COVID-19 Vaccine (#1) [facility] Start: 1967 COVID-19 Vaccine (1) COVID-19 Vaccine (1) [facility] Start: 1965 History and physical examination, annual for health maintenance Wellness Visit [facility] Start: 01-14-1963 COVID-19 Vaccine (#1) COVID-19 Vaccine (#1) [facility] Start: 1962 HEPATITIS C SCREENING HEPATITIS C SCREENING [facility] Work Phone: Start: 1962 Protein mass conc COLONOSCOPY [facility] Start: 1960 Screening colonoscopy COLONOSCOPY [facility] Work Phone: Start: 1960 Screening for malignant neoplasm of cervix PAP [facility] Start: 02-19-1963 Screening for malignant neoplasm of colon [facility] Start: 1960 Screening for osteoporosis Dexa Scan [facility] Start: 1960 Tetanus vaccination [facility] Amylase [Enzymatic activity/volume] in Body fluid [facility] Amylase [Enzymatic activity/volume] in Body fluid [facility] End: 11-18-2022 Bone density scan XR Bone Density DEXA Axial Imaging Routine Post-menopause 1 Occurrences starting 11/18/2021 until 11/18/2022 [facility] Comment on above: 1 Occurrences starting 11/18/2021 until 11/18/2022 Cologuard Cologuard Lab Ro utine Colon cancer screening Ordered: 11/18/2021 [facility] Comment on above: Ordered: 11/18/2021 Complete blood count with white cell differential, automated CBC Auto Differential Lab Panel Routine Orthostatic hypotension Ordered: 11/23/2023 [facility] Comment on above: Ordered: 11/23/2023 End: 11-18-2022 Complete blood count with white cell differential, manual CBC and Differential Lab Routine Routine general medical examination at a health care facility 1 Occurrences starting 11/18/2021 until 11/18/2022 [facility] Comment on above: 1 Occurrences starting 11/18/2021 until 11/18/2022 End: 12-13-2023 Complete blood count with white cell differential, manual CBC and Differential Lab Routine History of deep venous thrombosis Reactive lymphadenopathy Factor V Leiden mutation (HCC) Every 4 mo for 2 Occurrences starting 12/12/2022 until 12/13/2023, 1 completed [facility] Work Phone: Comment on above: Every 4 mo for 2 Occurrences starting until 12/13/2023, 1 completed End: 11-22-2024 Complete blood count with white cell differential, manual CBC and Differential Lab Routine Orthostatic hypotension 1 Occurrences starting 11/23/2023 until 11/22/2024 [facility] Comment on above: 1 Occurrences starting 11/23/2023 until 11/22/2024 End: 11-29-2023 Comprehensive metabolic 2000 panel - Serum or Plasma Comprehensive Metabolic Panel Lab Routine Familial hypercholesteremia 1 Occurrences starting 11/28/2022 until 11/29/2023 [facility] Work Phone: Comment on above: 1 Occurrences starting 11/28/2022 until 11/29/2023 End: 01-26-2024 Comprehensive metabolic 2000 panel - Serum or Plasma Comprehensive Metabolic Panel Lab Routine Hypothyroidism, unspecified type 1 Occurrences starting 01/25/2023 until 01/26/2024 [employer] Work Phone: Comment on above: 1 Occurrences starting 01/25/2023 until 01/26/2024 End: 11-22-2024 Comprehensive metabolic 2000 panel - Serum or Plasma Comprehensive Metabolic Panel Lab Routine Orthostatic hypotension 1 Occurrences starting 11/23/2023 until 11/22/2024 [employer] Work Phone: Comment on above: 1 Occurrences starting 11/23/2023 until 11/22/2024 End: 12-05-2020 COVID-19, Molecular COVID-19, Molecular Microbiology Routine Close Exposure To Covid-19 Virus Cough 1 Occurrences starting 12/06/2019 until 12/05/2020 [facility] Comment on above: 1 Occurrences starting 12/06/2019 until 12/05/2020 End: 01-04-2025 CTA Chest vessels and Abdominal vessels and Pelvis vessels W contrast IV CT Angiogram Chest Abdomen Pelvis Imaging Routine 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) Postoperative leak 1 Occurrences starting 01/05/2024 until 01/04/2025 [employer] Work Phone: Comment on above: 1 Occurrences starting 01/05/2024 until 01/04/2025 End: 05-23-2025 CTA Chest vessels and Abdominal vessels and Pelvis vessels WO and W contrast IV CT Angiogram Abdomen Pelvis Imaging Routine Abdominal aortic aneurysm (AAA) without rupture, unspecified part (HCC) 1 Occurrences starting 05/23/2024 until 05/23/2025 [employer] Work Phone: Comment on above: 1 Occurrences starting 05/23/2024 until 05/23/2025 Cytology report of B richie fluid Cyto stain [facility] Dir rpr ruptd aneury sm abdominal aorta ANEURYSM REPAIR ABDOMINAL AORTIC (AAA) Juxtarenal abdominal aortic aneurysm, ruptured (HCC) [facility] Doppler ultrasonogra phy of artery of lower limb Segmental Doppler Lower Extremity Arterial Vascular Ultrasound Routine Right-sided low back pain with right-sided sciatica, unspecified chronicity Ordered: 07/04/2023 [facility] Work Phone: Comment on above: Ordered: 07/04/2023 End: 06-06-2023 Erythrocyte sedimentation rate Sedimentation Rate Lab Routine Raynaud's phenomenon without gangrene 1 Occurrences starting 06/06/2022 until 06/06/2023 [facility] Work Phone: Comment on above: 1 Occurrences starting 06/06/2022 until 06/06/2023 Factor II (prothromb in) [id number] mutation detection Prothrombin (F2) Mutation ([id number]) Lab Routine 06/11/2022 4:13 AM EST [facility] Factor V Leiden genotype Factor V (F5) Leiden Mutation (R506Q) Lab Routine 06/11/2022 4:13 AM EST [facility] Work Phone: End: 11-18-2022 Hemoglobin A1c/Hemoglobin.total in Blood Hemoglobin A1c Lab Routine Routine general medical examination at a health care facility 1 Occurrences starting 11/18/2021 until 11/18/2022 [facility] Comment on above: 1 Occurrences starting 11/18/2021 until 11/18/2022 End: 07-03-2018 Hepatitis C Antibody Hepatitis C Antibody Routine Encounter For Hepatitis C Screening Test For Low Risk Patient 1 Occurrences starting 07/03/2017 until 07/03/2018 [facility] Work Phone: Lactate dehydrogenas e [facility] End: 2019 Lipid 1996 panel Lipid Panel Routine Hyperlipidemia, unspecified hyperlipidemia type 1 Occurrences starting 2018 until 2019 [facility] Comment on above: 1 Occurrences starting 2018 until 2019 End: 11-18-2022 Lipid 1996 panel - Serum or Plasma Lipid Panel Lab Routine Routine general medical examination at a health care facility 1 Occurrences starting 11/18/2021 until 11/18/2022 [facility] Comment on above: 1 Occurrences starting 11/18/2021 until 11/18/2022 End: 01-26-2024 Lipid 1996 panel - Serum or Plasma Lipid Panel Lab Routine Familial hypercholesteremia 1 Occurrences starting 01/25/2023 until 01/26/2024 [facility] Comment on above: 1 Occurrences starting 01/25/2023 until 01/26/2024 End: 07-03-2018 Lipid panel Lipid Panel Routine Hyperlipidemia, unspecified hyperlipidemia type 1 Occurrences starting 07/03/2017 until 07/03/2018 [facility] Work Phone: End: 01-18-2023 MG Breast - bilateral Screening Mammography Screening Jose Bilateral Imaging Routine Encounter for screening mammogram for malignant neoplasm of breast 1 Occurrences starting 11/18/2021 until 01/18/2023 [facility] Work Phone: Comment on above: 1 Occurrences starting 11/18/2021 until 01/18/2023 End: 08-23-2024 MR Lumbar spine WO contrast MR Lumbar Spine Without Contrast Imaging Routine Lumbosacral radiculopathy Weakness of right lower extremity Paresthesias 1 Occurrences starting 08/24/2023 until 08/23/2024 [facility] Work Phone: Comment on above: 1 Occurrences starting 08/24/2023 until 08/23/2024 Patient Education [facility] Work Phone: Patient referral [facility] Work Phone: pH of Body fluid [facility] pH of Body fluid [facility] Procedure on tissue specimen Tissue Exam STAT Once for 1 Occurrences starting 09/14/2018 [facility] Comment on above: Once for 1 Occurrences starting 09/15/19 19 End: 09-28-2021 Thyrotropin [Units/volume] in Serum or Plasma TSH Lab Routine Hypothyroidism, unspecified type 1 Occurrences starting 09/28/2020 until 09/28/2021 [facility] Comment on above: 1 Occurrences starting 09/28/2020 until 09/28/2021 End: 06-06-2023 Thyrotropin [Units/volume] in Serum or Plasma TSH with Reflex Free T4 Lab Routine Hypothyroidism, unspecified type 1 Occurrences starting 06/06/2022 until 06/06/2023 [facility] Comment on above: 1 Occurrences starting 06/06/2022 until 06/06/2023 End: 01-26-2024 Thyrotropin [Units/volume] in Serum or Plasma TSH with Reflex Free T4 Lab Routine Hypothyroidism, unspecified type 1 Occurrences starting 01/25/2023 until 01/26/2024 [facility] Comment on above: 1 Occurrences starting 01/25/2023 until 01/26/2024 End: 04-24-2024 Thyrotropin [Units/volume] in Serum or Plasma TSH with Reflex Free T4 Lab Routine Hypothyroidism, unspecified type 1 Occurrences starting 04/24/2023 until 04/24/2024 [facility] Work Phone: Comment on above: 1 Occurrences starting 04/24/2023 until 04/24/2024 End: 2019 Thyrotropin Qn TSH Routine Hypothyroidism, unspecified type 1 Occurrences starting 2018 until 2019 [facility] Comment on above: 1 Occurrences starting 2018 until 2019 Total protein measurement [facility] End: 01-15-2020 TSH Qn TSH Lab Routine Hypothyroidism, unspecified type 1 Occurrences starting 01/14/2019 until 01/15/2020 [facility] Comment on above: 1 Occurrences starting 01/14/2019 until 01/15/2020 End: 07-03-2018 TSH with Reflex Free T4 TSH with Reflex Free T4 Routine Hypothyroidism, unspecified type 1 Occurrences starting 07/03/2017 until 07/03/2018 [facility] Work Phone: End: 02-25-2025 Ultrasound renal artery stenosis hypertension limited Ultrasound renal artery stenosis hypertension limited Vascular Ultrasound Routine Renal insufficiency 1 Occurrences starting 12/26/2023 until 02/25/2025 [facility] Work Phone: Comment on above: 1 Occurrences starting 12/26/2023 until 02/25/2025 End: 02-25-2025 US Abdominal Aortic Aneurysm Duplex (AAA) US Abdominal Aortic Aneurysm Duplex (AAA) Vascular Ultrasound Routine 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) 1 Occurrences starting 12/26/2023 until 02/25/2025 [facility] Comment on above: 1 Occurrences starting 12/26/2023 until 02/25/2025 End: 01-21-2025 US Doppler ankle/brachial index US Doppler ankle/brachial index Vascular Ultrasound Routine PVD (peripheral vascular disease) (HCC) Ischemia of toe 1 Occurrences starting 11/22/2023 until 01/21/2025 [facility] Work Phone: Comment on above: 1 Occurrences starting 11/22/2023 until 01/21/2025 Immunizations Immunization Date Immunization Notes Care Provider Naveed lemons 10-20-2023 Pfizer SARS-CoV-2 Vaccination Cate Diane KNIGHT Work Phone: [facility] 2018 influenza virus vacc ine, unspecified formulation Michelle Littlejohn RP,PharmD Work Phone: [facility] Payers Date Payer Category Payer Managed Care (unspecified) [employer] HMO QPOS/SELECT [id number] 05-29-2024 Private Health Insurance [id number] 02-29-2024 Self-pay 05-29-2021 Managed Care HMO (unspecified) [facility] HMO/CHOICE PLUS/CATRINA/CATRINA PLUS .[id number] 05-29-2021 Unknown [id number] 05-29-2019 Unknown [id number] 05-29-[address] [facility] [id number] 05/29/2019-Present [id number]. 2.7.3.269421.315 05-29-2019 Unknown [id number]. 1.13.385. 2.7.3.258418.315 03-29-2018 Unknown [id number] 1.2.840.535433.1.13.385. 2.7.3.256036.315 03-29-2017 Private Health Insurance [id number] 2.16.840.1.870638.3.249. 13 06-29-2016 Unknown [id number] 1962 Unknown [id number] 2.16.840.1.552514.3.579. 2.903 1962 Unknown [id number] 2.16.840.1.627003.3.579. 2.903 1962 Unknown [id number] 2.16.840.1.651486.3.579. 2.903 1962 Unknown [id number] 2.16.840.1.183863.3.579. 2.903 1962 Unknown [id number] 2.16.840.1.166810.3.579. 2.903 1962 Unknown [id number] 2.16.840.1.571396.3.579. 2.900 1962 Unknown [id number] 2.16.840.1.470974.3.579. 2.900 1962 Unknown [id number] 2.16.840.1.969169.3.579. 2.900 1962 Unknown [id number] 2.16.840.1.267900.3.579. 2.900 1962 Unknown [id number] 2.16.840.1.902068.3.579. 2.900 1962 Unknown [id number] 2.16.840.1.212513.3.579. 2.903 1962 Unknown [id number] 2.16.840.1.901356.3.579. 2.903 1962 Unknown [id number] 2.16.840.1.026026.3.579. 2.903 1962 Unknown [id number] 2.16.840.1.231835.3.579. 2.903 1962 Unknown [id number] 2.16.840.1.770252.3.579. 2. 1962 Unknown [id number] 2.16.840.1.432762.3.579. 2.903 1962 Unknown [id number] 2.16.840.1.152079.3.579. 2 1962 Unknown [id number] 2.16.840.1.466680.3.579. 2 1962 Unknown [id number] 2.16.840.1.446958.3.579. 2 1962 Unknown [id number] 2.16.840.1.109530.3.579. 2.3 1962 Unknown [id number] 2.16.840.1.956951.3.579. 2 1962 Unknown [id number] 2.16.840.1.922698.3.579. 2.903 1962 Unknown [id number] 2.16.840.1.853939.3.579. 2 1962 Unknown [id number] 2.16.840.1.362261.3.579. 2.903 1962 Unknown [id number] 2.16.840.1.096476.3.579. 2. 1962 Unknown [id number] 2.16.840.1.489326.3.579. 2.90 1962 Unknown [id number] 2.16.840.1.234539.3.579. 2 1962 Unknown [id number] 2.16.840.1.451319.3.579. 2.903 1962 Unknown [id number] 2.16.840.1.583297.3.579. 2. 1962 Unknown [id number] 2.16.840.1.933169.3.579. 2.3 1962 Unknown [id number] 2.16.840.1.025476.3.579. 2. 1962 Unknown [id number] 2.16.840.1.063762.3.579. 2. 1962 Unknown [id number] 2.16.840.1.770437.3.579. 2 1962 Unknown [id number] 2.16.840.1.174203.3.579. 2 1962 Unknown [id number] 2.16.840.1.793009.3.579. 2 1962 Unknown [id number] 2.16.840.1.928837.3.579. 2 1962 Unknown [id number] 2.16.840.1.187379.3.579. 2 1962 Unknown [id number] 2.16.840.1.746796.3.579. 2 1962 Unknown [id number] 2.16.840.1.924499.3.579. 2 1962 Unknown [id number] 2.16.840.1.963787.3.579. 2. 1962 Unknown [id number] 2.16.840.1.593865.3.579. 2 1962 Unknown [id number] 2.16.840.1.816169.3.579. 2. 1962 Unknown [id number] 2.16.840.1.040427.3.579. 2903 1962 Unknown [id number] .840.1.202289.3.579. 2.903 Private Health Insurance [id number] 2.840.1.355893.3.249. 13 Unknown [id number] 2.840.1.328214.3.579. 2.462 Unknown [id number] .840.1.073758.3.579. 2.462 Unknown [id number] .840.1.936632.3.579. 2.462 Unknown [id number] 2.840.1.317325.3.579. 2.462 Unknown [id number] 2.840.1.765206.3.579. 2.462 Unknown [id number] 2.840.1.915285.3.579. 2.462 Unknown [id number] 2.840.1.151190.3.579. 2.462 Unknown [id number] .840.1.919567.3.579. 2.462 Unknown [id number] .840.1.210234.3.579. 2.462 Unknown [id number] 2.840.1.071862.3.579. 2.462 Unknown [id number] .840.1.524455.3.579. 2.462 Unknown [id number] .840.1.916079.3.579. 2.462 Unknown [id number] .840.1.712057.3.579. 2.462 Unknown [id number] 2.840.1.327986.3.579. 2.462 Unknown [id number] 2.840.1.370440.3.579. 2.462 Unknown [id number] 2.840.1.048183.3.579. 2.462 Unknown [id number] 2.16.840.1.603378.3.579. 2.462 Unknown [id number] 2.16.840.1.009035.3.579. 2.462 Unknown [id number] 2.16.840.1.224541.3.579. 2.462 Unknown [id number] 2.16.840.1.057436.3.579. 2.462 Unknown [id number] 2.16.840.1.352907.3.579. 2.462 Unknown [id number] 2.16.840.1.685460.3.579. 2.462 Unknown [id number] 2.16.840.1.643831.3.579. 2.462 Unknown [id number] 2.16.840.1.382580.3.579. 2.462 Unknown [id number] 2.16.840.1.827521.3.579. 2.462 Unknown [id number] 2.16.840.1.438174.3.579. 2.462 Unknown [id number] 2.16.840.1.088417.3.579. 2.462 Unknown [id number] 2.16.840.1.051926.3.579. 2.462 Unknown [id number] 2.16.840.1.313527.3.579. 2.462 Unknown [id number] 2.16.840.1.392045.3.579. 2.462 Unknown [id number] 2.16.840.1.034156.3.579. 2.462 Unknown [id number] 2.16.840.1.350814.3.579. 2.462 Unknown [id number] 2.16.840.1.239604.3.579. 2.462 Unknown [id number] 2.16.840.1.695787.3.579. 2.462 Unknown [id number] 2.16.840.1.303512.3.579. 2.462 Unknown [id number] 2.16.840.1.477176.3.579. 2.462 Unknown [id number] 2.16.840.1.397186.3.579. 2.462 Unknown [id number] 2.16.840.1.086981.3.579. 2.462 Unknown [id number] 2.16.840.1.242564.3.579. 2.462 Unknown [id number] 2.16.840.1.963975.3.579. 2.462 Unknown [id number] 2.16.840.1.549977.3.579. 2.462 Unknown [id number] 2.16.840.1.563338.3.579. 2.462 Unknown [id number] 2.16.840.1.849349.3.579. 2.462 Unknown [id number] 2.16.840.1.157899.3.579. 2.462 Unknown [id number] 2.16.840.1.144093.3.579. 2.462 Unknown [id number] 2.16.840.1.156414.3.579. 2.462 Unknown [id number] 2.16.840.1.497386.3.579. 2.462 Unknown [id number] 2.16.840.1.127899.3.579. 2.462 Unknown [id number] 2.16.840.1.250904.3.579. 2.462 Unknown [id number] 2.16.840.1.089666.3.579. 2.462 Unknown [id number] 2.16.840.1.463282.3.579. 2.462 Unknown [id number] 2.16.840.1.234570.3.579. 2.462 Unknown [id number] 2.16.840.1.234100.3.579. 2.462 Unknown [id number] 2.16.840.1.370962.3.579. 2.462 Unknown [id number] 2.16.840.1.311974.3.579. 2.462 Unknown [id number] 2.16.840.1.891860.3.579. 2.462 Unknown [id number] 2.16.840.1.163382.3.579. 2.462 Unknown [id number] 2.16840.1.705081.3.579. 2.462 Unknown [id number] 2.16.840.1.865546.3.579. 2.462 Unknown [id number] 2.16840.1.365206.3.579. 2.462 Unknown [id number] 2..840.1.073956.3.579. 2.462 Unknown [id number] 2.840.1.272058.3.579. 2.462 Unknown [id number] 2.840.1.917579.3.579. 2.462 Unknown [id number] 2.840.1.959946.3.579. 2.462 Unknown [id number] 2.840.1.513453.3.579. 2.462 Unknown [id number] 2.840.1.628356.3.579. 2.462 Unknown [id number] 2.840.1.532330.3.579. 2.462 Unknown [id number] 2.840.1.898723.3.579. 2.462 Unknown [id number] 2.16840.1.558570.3.579. 2.462 Unknown [id number] 2.16840.1.825773.3.579. 2.462 Unknown [id number] 2.16.840.1.969241.3.579. 2.462 Unknown [id number] 2.840.1.566071.3.579. 2.462 Unknown [id number] 2.16.840.1.900978.3.579. 2.462 Unknown [id number] 2.16.840.1.915385.3.579. 2.462 Unknown [id number] 2.16.840.1.789761.3.579. 2.462 Unknown [id number] 2.16.840.1.077346.3.579. 2.462 Unknown [id number] 2.16.840.1.239787.3.579. 2.462 Unknown [id number] 2.16.840.1.436658.3.579. 2.462 Unknown [id number] 2.16.840.1.616275.3.579. 2.462 Social History Date Type Detail Facility Start: 05-05-1996 End: 08-24-2023 Tobacco smoking status [facility] Current every day smoker [facility] Work Phone: Start: 05-05-1996 End: 10-08-2023 History of tobacco use Cigarette Smoker [facility] Work Phone: Start: 09-05-2017 End: 03-12-2024 Cigarettes smoked current (pack per day) - Reported [facility] Start: 1960 Sex Assigned At Not on file [facility] Work Phone: Start: 05-05-2016 Alcohol Comment Occassionally [facility] Start: 09-14-2018 End: 09-15-2024 Tobacco smoking status INIS Former smoker [facility] Start: 04-17-2019 End: 12-06-2019 Alcohol intake Current drinker of alcohol (finding) [facility] Start: 01-14-2019 End: 09-29-2020 History SDOH Social Connections Get Together 4 [facility] Start: 01-14-2019 End: 05-12-2021 History SDOH Food Worry 1 [facility] Start: 05-05-1996 End: 11-28-2022 Tobacco smoking status INIS Current some day smoker [facility] Start: 10-25-2021 End: 10-25-2022 Exposure to SARS-CoV-2 (event) Not sure [facility] Start: 12-06-2019 End: 12-26-2023 Tobacco use and exposure Never used [facility] Start: 09-29-2020 History SDOH Financial 5 [facility] Start: 05-12-2021 End: 11-18-2021 History SDOH Social Connections Phone 2 [facility] Start: 04-06-2022 End: 07-29-2024 Alcohol intake Ex-drinker (finding) [facility] Start: 06-13-2022 End: 11-28-2022 Tobacco Comment I am down to 4 cigerettes a day [facility] Start: 05-12-2021 End: 03-12-2024 Social connection and isolation panel [facility] Frequency of Social Gatherings with Friends and Family Not on file [facility] How often to you hav e a drink containing alcohol? Monthly or less [facility] How many standard drinks containing alcohol [...] the mortgage or rent on time? No [facility] Start: 12-04-2017 Gender identity Identifies as female gender (finding) [facility] Start: 12-04-2017 Sexual orientation Heterosexual (finding) [facility] Start: 05-05-1996 End: 10-08-2023 History of tobacco use Current smoker [facility] Start: 08-14-2024 End: 09-15-2024 Sex Female (finding) [facility] Start: 1960 Sex Assigned At Female [facility] Medical Equipment Procedure Code Equipment Code Equipment Origin al Text Equipment Identifier Dates EGD, with monitored anesthesia care FDA Start: 07-24-2024 EGD, with monitored anesthesia care ([id number] FDA Start: 08-03-2024 EGD, with monitored anesthesia [...] FDA Start: 07-24-2024 Closure Perclose Prostyle - [id number] ()[id number])[id number], [id number] FDA Start: 10-09-2023 Endograft 26 X 14.5mm 12cm Excluder Comformable Trunk - [id number] ()[id number])[id number], _imp, _exp FDA Start: 10-09-2023 Endograft 12mm X 12cm Excluder Leg - [id number] ()[id number])[id number])[id number], [id number] FDA Start: 10-10-2023 Comment on above: Description: RIGHT E XTENDER Endograft 12mm X 14cm Contralateral Leg Excluder [id number] - [id number] ()[id number])[id number], [id number] FDA Start: 10-10-2023 Comment on above: Description: LEFT CO NTRALATERAL LEG Stent 6 X 39mm 1 35cm Viabahn Vbx - [id number] ()[id number])[id number], _imp FDA Start: 10-09-2023 Comment on above: Description: LEFT RE NAL Tray 14fr 24cm S plit Cath Iii - [id number] Start: 02-01-2024 Graft 20 X 10mm 40cm Hemashield Bifurcated - [id number] ()[id number](17)28 [id number])[id number]) [id number] FDA Start: 01-24-2024 Hemostat 2 X 4in Surgicel Fibrillar - [id number])10 [id number], [id number] FDA Start: 01-24-2024 Syringe 10ml Pre-Filled 5pk Bioglue - [id number] Start: 01-24-2024 Goals Date Patient Goal Desired Activity /State Functional Status Date Assessment Result Facility 08-17-2024 Functional status Bedrest [facility] Work Phone: 08-13-2024 Functional status Bedrest [facility] Work Phone: 07-29-2024 Functional status Bedrest [facility] Work Phone: Mental Status Date Assessment Result Facility 08-17-2024 Cognitive function Voice/Name [facility] Work Phone: 08-13-2024 Cognitive function Voice/Name [facility] Work Phone: 07-29-2024 Cognitive function Voice/Name [facility] Work Phone: 07-18-2024 Cognitive function Awake;Drowsy [facility] Work Phone: Clinical Notes 07-29-2020 to 09-15-2024 Sol Huerta RN - 08/23/2024 4:25 PM EDT Note Date & Type Note Facility 09-15-2024 Radiology Diagnostic study note [facility] 08-23-2024 History of Present illness Narrative Call [...] 12 mo f/u. documented in this encounter [facility] 08-17-2024 Discharge summary Note Date/Time August 17, 2024 9:32am [facility] Medical Records Department [address] [place] [address] Discharge Summary 08/17/24 0922 MR#: [id number] Acct: [id number] Name: SCOTT OBREGON Rep #:[id number] : 1960 64 From: Nikolas Bradley PCP: Millie Massey MD Status:ADM IN Location: PCU [place] [address] Providers Date of Admission: 08/14/24 Date of [...] had recovery. Patient on dialysis every Monday. Athletic Director consulted 08/15: She feels much better after dialysis. 08/16: GPC possible Enterococcus 11,000?. 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 08/14/24 08:50 Blood Culture (Wb) - Anticubital [...] Std Deviation 74.1 H, RDW Coeff of [place] 23.1 H, Plt Count 146 L,MPV 9.2, Immature Gran % (Auto) 1.800 H, Neut % (Auto) 73.5 H, Lymph % (Auto) 13.4 L, Bates % (Auto) 7.0, Eos % (Auto) 3.4, [...] bisacodyl 10 mg rectal suppository 10 mg KY DAILY PRN constipation 07/31/24 cholecalciferol (vitamin D3) [...] acetaminophen 650 mg rectal suppository 650 mg KY Q4H PRN fever or pain 08/14/24 dextrose 40 % oral gel (Glucose Gel) 10 g PO Q15M PRN hypoglycemia 08/14/24 mirtazapine 15 mg tablet 15 mg PO QHS 08/14/24 sodium phosphates 19 gram-7 gram/118 mL enema (Enema) 118 ml KY DAILY PRN constipation 08/14/24 IV with Additives [...] 73.5 H, Lymph % (Auto) 13.4 L, Bates % (Auto) 7.0, Eos % (Auto) 3.4, [...] Culture - Preliminary Enterococcus faecium 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 Nikolas Magaña MD; Millie Massey MD~ Signed [facility] Work Phone: 1(300) 107-392603-22-2025 Discharge summary Author Nikolas Magaña [facility] Note Date/Time August 17, 2024 9:[address] [facility] Medical Records Department [address] [place] [address] Transfer to [facility] MR#: [id number] Acct: [id number] Name: SCOTT OBREGON Rep #:[id number] : 1960 64 From: Nikolas Bradley PCP: Millie Massey MD Status:ADM IN Certification of patient admission REQUIRED AT TIME OF ADMISSION. I CERTIFY THAT POST-HOSPITAL ECF SERVICES ARE REQUIRED TO BE GIVEN ON AN IN-PATIENT BASIS BECAUSE OF THE ABOVE NAMED PATIENT'S NEED FOR HALFWAY CARE ON A CONTINUING BASIS FOR THE [...] had recovery. Patient on dialysis every Monday. Athletic Director consulted 08/15: She feels much better after dialysis. 08/16: GPC possible Enterococcus 11,000?25. 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 Discharge Plan [...] tx acetaminophen 650 mg suppository 650 mg KY Q4H PRN (Reason: fever or pain) Enema 19-7 gram/118 mL enema 118 ml KY DAILY PRN (Reason: constipation) Rx Instructions: NEEDED [...] DISTRESS) bisacodyl 10 mg suppository 10 mg KY DAILY PRN (Reason: constipation) glucagon HCl [Glucagon [...] Angie Torres MD; Millie Massey MD ~ [facility] Work Phone: 1(333) 505-244703-22-2025 [facility]03-21-2025 Progress note Author Nikolas Magaña [facility] Note Date/Time August 16, 2024 3:[address] 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 Had detailed discussion with patient's POA Mrs. Monk in person in the room and LAISHA on the phone inclusions of rehabilitation case coordinator, social research assistant and patient's nurse. Patient not short of [...] had recovery. Patient on dialysis every Monday. Athletic Director consulted 08/15: She feels much better after dialysis. 08/16: GPC possible Enterococcus 11,000?25. 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 08/14/24 07:35 Mucosa - Nose SARS-CoV-2, Influenza [...] 76.6 H, Lymph % (Auto) 10.9 L, Bates % (Auto) 7.0, Eos % (Auto) 2.4, Baso % (Auto) 0.7, Absolute Neuts (auto) 3.2, Absolute Lymphs (auto) 0.45 L, Nucleated RBC % 0, Anisocytosis1+, [place] [address] H, Triglycerides 71, Cholesterol 62, LDL Cholesterol, [...] both sisters Sriram and Laisha along with rehabilitation case coordinator and social research assistant and patient's nurse for more than 20 [...] active complex medical conditions), discussion with the apron trimmer, review of labs and imaging is 45minutes. Visit Charges Inpatient E&M: 24226 Subs Hosp L3 08/16/24 1530 <Electronically signed by Nikolas Magaña MD> Cosigner Signature (if applicable): CC: ~ Signed [facility] Work Phone: 1(642) 434-673403-20-2025 Consult note Author Meghan Alfaro [facility] Note Date/Time August 15, 2024 9:3 5pm [facility] Medical Records Department [address] [place] [address] Consultation - Nephrology 08/15/24 1138 MR#: [id number] Acct: [id number] Name: SCOTT OBREGON Rep #:[id number] : 1960 64 From: Meghan MOORE PCP: Millie Massey MD Status:ADM IN Location: [place] [address] Documented by User: OSCAR Hayward 08/15/24 11:53 [...] fluid removed. I contacted patient's POA Sriram ([phone]), who also had other sister Geeta (from [place]) in on phone conversation and I updated [...] ESRD who currently dialyzes Monday schedule at [facility] kidney [place]son via tunneled hemodialysis catheter who presented back to the emergency room yesterday from [facility] with complaints of worsening shortness of breath. Chestx-ray in the emergency room showing pulmonary edema, bilateral pleural effusions. Patient had dialysis yesterday, only able to tolerate about 1.7L fluid removal. Had thoracentesis with around 500ml fluid removed. Patient alert,drowsy, no complaints today. 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 (current) use of anticoagulants Gross hematuria Retroperitoneal [...] bisacodyl 10 mg rectal suppository 10 mg KY DAILY PRN constipation 07/31/24 Unknown History cholecalciferol [...] release acetaminophen 650 mg rectal 650 mg KY Q4H PRN fever or pain 08/14/24 Unknown History suppository dextrose 40 % oral gel (Glucose 10 g PO Q15M PRN hypog lycemia 08/14/24 Unknown History Gel) mirtazapine 15 mg tablet 15 mg PO QHS 08/14/24 Unknow n History sodium phosphates 19 gram-7 118 ml KY DAILY PRN consti pation 08/14/24 Unknown History [...] 76.6 H, Lymph % (Auto) 10.9 L, Bates % (Auto) 7.0, Eos % (Auto) 2.4, Baso % (Auto) 0.7, Absolute Neuts (auto) 3.2, Absolute Lymphs (auto) 0.45 L, Nucleated RBC % 0, [place]isocytosis1+, [place] [address] H, Triglycerides 71, Cholesterol 62, LDL Cholesterol, [...] thoracentesis. No evidence of pneumothorax. Reading Location: [facility] Documented by User: Dr. Angie Torres [...] fluid removed. I contacted patient's POA Sriram ([phone]), who also had other sister Geeta (from [place]) in on phone conversation and I updated [...] HPI Consult Data Date of Consult: 08/15/24 [facility] Medical History (Updated 08/15/24 @ 11:44 by Meghan Alfaro NP-Rose) End stage renal disease Anasarca Chronic anemia [...] bisacodyl 10 mg rectal suppository 10 mg KY DAILY PRN constipation 07/31/24 Unknown History cholecalciferol [...] release acetaminophen 650 mg rectal 650 mg KY Q4H PRN fever or pain 08/14/24 Unknown History suppository dextrose 40 % oral gel (Glucose 10 g PO Q15M PRN hypog lycemia 08/14/24 Unknown History Gel) mirtazapine 15 mg tablet 15 mg PO QHS 08/14/24 Unknow n History sodium phosphates 19 gram-7 118 ml KY DAILY PRN consti pation 08/14/24 Unknown History [...] Torres MD> CC: Millie Massey MD~ Signed [facility] Work Phone: 1(739) 774-261703-20-2025 Progress note Author Nikolas Magaña [facility] Note Date/Time August 15, 2024 5:2 2pm [facility] Medical Records Department [address] [place] [address] Progress Note - Hospitalist 08/15/24 0811 MR#: [id number] Acct: [id number] Name: SCOTT OBREGON Rep #:[id number] : 1960 64 From: Nikolas Bradley PCP: Millie Massey MD Status:ADM IN Location: [place] [id number]- 1 Reason for Visit Reason for Visit: Diagnoses [...] 79.5 H, Lymph % (Auto) 8.6 L, Bates % (Auto) 6.1, Eos % (Auto) 1.9, [...] Sl. Cloudy, Urine pH 8.0, Ur Specific Dillon 1.010, Urine Protein 30 H, Urine Glucose [...] 76.6 H, Lymph % (Auto) 10.9 L, Bates % (Auto) 7.0, Eos % (Auto) 2.4, Baso % (Auto) 0.7, Absolute Neuts (auto) 3.2, Absolute Lymphs (auto) 0.45 L, Nucleated RBC % 0, [place]isocytosis1+, [place] [address] H, Triglycerides 71, Cholesterol 62, LDL Cholesterol, [...] Bilateral pleural effusions. Reading Location: [facility] Physical Exam Narrative Physical exam General: [...] had recovery. Patient on dialysis every Monday. Athletic Director consulted 08/15: She feels much better after [...] advanced directive but has legal power of ip technology transactions attorney for health.. 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 08/14/24 07:35 Mucosa - Nose SARS-CoV-2, Influenza [...] 76.6 H, Lymph % (Auto) 10.9 L, Bates % (Auto) 7.0, Eos % (Auto) 2.4, Baso % (Auto) 0.7, Absolute Neuts (auto) 3.2, Absolute Lymphs (auto) 0.45 L, Nucleated RBC % 0, [place]isocytosis1+, [place] [address] H, Triglycerides 71, Cholesterol 62, LDL Cholesterol, [...] Glucose 90 Charges/Coding Visit Charges Inpatient E&M: 33891 Subs Hosp L2 08/15/24 1710 <Electronically signed [...] Cosigner Signature (if applicable): cc: ~* Signed [facility] Work Phone: 1(332) 805-339103-20-2025 History of Present illness Narrative* Jennifer Hernandez [...] coordinate transition of care. documented in this [id number] Procedure [facility]03-20-2025 Procedure [facility]03-20-2025 Radiology Diagnostic study [facility]03-19-2025 Discharge summary Author Ciaran Rodrigez [facility] Note Date/Time August 14, 2024 5:[address] [facility] Medical Records Department [address] [place] [address] Emergency Department Summary 08/14/24 MR#: [id number] Acct: [id number] Name: SCOTT OBREGON Rep #:[id number] : 1960 64 From: Ciaran Conklin ggett DO PCP: Millie Massey MD Status:ADM IN Location: [place] [address] HPI History of Present Illness Chief Complaint: Shortness of Breath Narrative Narrative: Chief complaint and HPI: Shortness of breath. 64-year-old female with history of ESRD on HD Monday, Monday, Monday, failure to thrive with PEG tube, AAA, factor V Leiden, HLD presents for evaluation of shortness of breath. Patient resides at [facility]. Per their report patient became short of [...] intact Psych: Cooperative, appropriate mood and affect [facility] Medical History (Updated 08/14/24 @ 12:[address] 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 Cloudy Urine pH 8.0 Ur Specific Dillon 1.010 Urine Protein 30 H Urine Glucose [...] (Auto) Neut % (Auto) Lymph % (Auto) Bates % (Auto) Eos % (Auto) Baso % [...] Color Urine Clarity Urine pH Ur Specific Dillon Urine Protein Urine Glucose (UA) Urine Ketones [...] Bilateral pleural effusions. Reading Location: [facility] Discharge Plan Disposition Disposition: Acute Care Hospital [facility] Discharge Date/Time: 08/14/24 12:48 What to do if you have Problems For any increased pain, shortness of breath, bleeding, nausea or vomiting, chestpain, or any unexpected problems, contact your Primary Care Provider. Call [facility] ([phone]) or report to the closest Emergency Room. Call 911 if necessary. 08/14/24 6181 <Electronically signed by Ciaran Rodrigez DO> Cosigner Signature (if applicable): CC: Millie Massey MD ~ Signed [facility] Work Phone: 1(437) 388-757903-19-2025 History and physical note Author Nikolas Magaña [facility] Note Date/Time August 14, 2024 1:0 0pm [facility] Medical Records Department [address] [place] [address] H&P Exam - Hospitalist 08/14/24 1221 MR#: [id number] Acct: [id number] Name: SCOTT OBREGON Rep #:[id number] : 1960 64 From: Nikolas Bradley PCP: Millie Massey MD Status:ADM IN Location: [place] [id number]- HPI - General General Date of Admission: 08/14/24 Date of Service: 08/14/24 Chief Complaint: Shortness of breath, could not breathe HPI Narrative SCOTT OBREGON, is a 64 F who was just discharged yesterday to [facility] came to ED feeling shortness [...] Patient is admittedfor pulmonary edema/anasarca. Need hemodialysis [facility] Medical History (Updated 08/14/24 @ 12:[address] 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 Gross hematuria Retroperitoneal [...] bisacodyl 10 mg rectal suppository 10 mg KY DAILY PRN constipation 07/31/24 Unknown History cholecalciferol [...] release acetaminophen 650 mg rectal 650 mg KY Q4H PRN fever or pain 08/14/24 Unknown History suppository dextrose 40 % oral gel (Glucose 10 g PO Q15M PRN hypog lycemia 08/14/24 Unknown History Gel) mirtazapine 15 mg tablet 15 mg PO QHS 08/14/24 Unknow n History sodium phosphates 19 gram-7 118 ml KY DAILY PRN dionei pation 08/14/24 Unknown History gram/118 mL enema [...] Room Air Oxygen Flow Rate (L/min) 3 03/19/25 10:00 08/14/24 11:00 08/14/24 12:20 Temperature 97.0 [...] 79.5 H, Lymph % (Auto) 8.6 L, Bates % (Auto) 6.1, Eos % (Auto) 1.9, [...] Sl. Cloudy, Urine pH 8.0, Ur Specific Dillon 1.010, Urine Protein 30 H, Urine Glucose [...] Bilateral pleural effusions. Reading Location: [facility] Assessment & Plan Assessment/Plan (1) Pulmonary [...] advanced directive but has legal power of ip technology transactions attorney for health.. After discussion of benefits/risks [...] shock if needed Total time spent in iwwg-eo-tbdg encounter in discussion of advanced directive 17 minutes. Charges/Coding Visit Charges Inpatient E&M: 17917 Init Hosp L3 Procedures Hospitalists Procedures: 38919 Advncd Care Plan 30 Min 08/14/24 1300 <Electronically signed by Nikolas Magaña MD> Cosigner Signature (if applicable): CC: Dr. Nikolas Magaña MD; Millie Massey MD~ Signed [facility] Work Phone: 1(873) 601-958703-19-2025 Radiology Diagnostic study [facility]03-18-2025 [facility]03-03-2025 Note [facility]02-25-2025 Evaluation note* Diagnosis Onset Date Resolution Status Admit Date End stage renal disease resolved F ebruary 2024 5:23pm Chronic anemia inactive June 302024 5:23pm Leukocytosis inactive June 5:23pm Open abdominal wall wound inactive July 23, 2024 5:23pm Unspecified severe protein-calorie malnutrition inactive Jun ru2024 5:23pm ABLA (acute blood loss anemia) acute [...] July 11:52am End stage renal disease resolved [facility] 2024 11:52am [facility] Work Phone: 1(703) 642-682402-05-2025 NoteShoot thanks. AUTHENTICATED BY YING QUISPE, ON 07/03/2024 13:05:25[facility] [id number] History of Present illness Narrative* Ying Quispe DO - 07/03/2024 1:05 PM EST Shoot thanks. * Codie Garcia, RN - 07/03/2024 11:12 AM EST Care Management Referral received from PCP office ESTHER/Angela- spoke with John mills- he confirms that referral received but pt chose to go with another [facility]. Spoke with pt introduced self, role and purpose of call. Pt states she did not get discharged. She stated some things changed. Pt had difficult time in telling this RNCM what facility she was at - eventually [facility]. Pt unsure of discharge date No future appointments. BP Readings from Last 3 Encounters: 04/04/24 (!) 82/60 03/20/24 (!) 147/68 02/25/24 100/67 documented in this [id number] History of Present illness Narrative* Codie Garcia RN - 07/02/2024 10:53 AM EST Care Management Referral received from PCP office 07/02/24 first attempt to contact Scott Obregon regarding Transition of Care Follow Up. Unable to initiate due to No Answer, Left Message, I will continue to try later Provided Care Management Introduction Letter, Today via [employer]- attempted to contact unsuccessfully, left voice message with contact information provided. BP Readings from Last 3 Encounters: 04/04/24 (!) 82/60 03/20/24 (!) 147/68 02/25/24 100/67 No future appointments. documented in this [id number] Evaluation note* Diagnosis Onset Date Resolution Status [...] resolved 2024 3:42pm Hypoglycemia resolved July 31, 2 025 3:42pm Raynaud disease inactive July 3:42pm Anasarca acute August 14 11:52am Pleural effusion acute August 142024 11:52am Pulmonary edema acute July 11:52am End stage renal disease resolved 2024 11:52am [facility] Work Phone: 1(222) 646-605912-03-2024 Evaluation note* Diagnosis Onset Date Resolution Status Admit Date Unspecified severe protein-calorie malnutrition inactive Apr 1:29pm Eschar of toe acute May 2:56pm PAD (peripheral artery disease) acut e June 05, 2024 2:56pm S/P AAA repair acute May 2:56pm Chronic anemia inactive June 302024 5:23pm End stage renal disease inactive 2024 5:23pm Leukocytosis inactive June 5:23pm Open [...] 14 11:52am Pulmonary edema acute July 11:52am [facility] Work Phone: 1(282) 257-835312-03-2024 Evaluation note* Diagnosis Onset Date Resolution Status [...] acute July 31 3:42pm Chronic anticoagulation acute [facility] 2024 3:42pm Coffee ground emesis acute 2024 3:42pm Diarrhea acute July 31 3:42pm End stage renal disease acute [facility] 2024 3:42pm Factor V Leiden acute July 3:42pm GI bleed acute July 31 3:42pm Hypoglycemia acute July 31, 2 025 3:42pm Raynaud disease acute July 3:42pm Chronic kidney disease with end stage renal 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 chronic July 31, 2024 3:42pm Anasarca acute August 14 11:52am End stage renal disease acute [facility] 2024 11:52am Pleural effusion acute August 142024 11:52am Pulmonary edema acute July 11:52am [facility] Work Phone: 1(237) 906-864811-08-2024 History of Present illness Narrative* Corrina Dawn MA - 04/05/2024 2:45 PM EST Referral for hospice care and office note from Cate Contreras CNP 04/04/24 faxed to [facility] [phone]. documented in this [id number] History of Present illness Narrative* Cate Contreras CNP - 04/04/2024 10:00 AM EST Images from the original note were not included. Office Visit Patient Name: Scott Obregon MR #: [id number] Assessment/Plan: I saw Scott in the office [...] requiring iHD, wound necrosis who presented to [facility] from ECF on 03/12/2024 with [...] 1 tablet by mouth every morning . [id number] FUM-FOLIC AC (THERA-M) 19 MG IRON- 400 [...] and affect as above Cate Contreras CNP [phone] documented in this [id number] NoteOffice Visit Patient Name: Scott Obregon MR #: [id number] Assessment/Plan: I saw Scott in the office [...] requiring iHD, wound necrosis who presented to [facility] from [facility]CF on 03/12/2024 with [...] 1 tablet by mouth every morning . HXOPWOQQ-KPR-KBPK FUM-FOLIC AC (THERA-M) 19 MG IRON- 400 MCG TAB Take 1 tablet by mouth every morning . MULTIVITAMIN (THERAGRAN) PER TABLET Take 1 (one) tablet by mouth daily . ONDANSETRON (ZOFRAN) 4 MG TABLET Take 1 (one) t (more content not included)... [facility] Note [facility]-20-[facility]24 [facility]24 Note [facility] [facility]24 [facility]2024 Note [facility]10-16-[facility] 03-13-2024 [facility]29[facility]28-2024 Note [facility]09-28-2024 [facility] 02-23-2024 [facility] Labsietn45-43-5115 [facility] Qkcgiboy14-06-8526 [facility] Aysrvcny54-26-6735 [facility] Tfogjtbu82-34-1244 [facility] Gfsgfwjh66-11-7884 Note [facility] Pgxqlkao04-27-0215 [facility] 02-22-2024 [facility] Hluowrdk09-54-2849 [facility] Xptxqeuq02-39-9855 [facility] Sudbmrac68-50-4794 [facility] Djashjsv09-77-2904 [facility] Rflxdfuo28-39-3037 Note [facility] Tzmmuimq47-60-0737 [facility] 02-19-2024 [facility] Rdgshxhr63-56-3743 [facility] Rpslcozc50-06-4427 [facility] Simjhnia92-97-0384 [facility] Qryndcsg53-75-4246 [facility] Cijjskzq59-76-6386 Note [facility] Kfuykzxh84-85-0959 [facility] 02-18-2024 [facility] Adiratgi63-93-8574 [facility] Jilwxyek24-20-6751 [facility] Pfcofkgh48-49-9684 [facility] Ucqkwuwc66-26-4649 [facility] Taoqwpmp01-25-9548 Note [facility] Ixhvisth51-75-4722 [facility] 02-16-2024 [facility] Hgrjjcql60-49-0931 [facility] Itnxfwga89-53-2421 [facility] Dhjsutpz64-10-7458 [facility] Fwdzctzt31-01-1765 NoteChest tube output near 0 Chest x-ray stable Patient tolerating diet No new complaints Remove chest tube Will follow serial chest x-rays/exam AUTHENTICATED BY SRI ROMAN, ON 02/15/2024 09:22:25[facility] Lphcycao75-32-2279 [facility]09-19[facility] Note [facility]09-18-[facility] 02-14-2024 [facility]18[facility]18-20[facility]-18[facility]17-[facility]17-2024 Note [facility]09-17-2024 [facility] 02-13-2024 [facility]-17-2024 NotePROGRESS :This report has been cancelled.[facility]24 [facility]24 Note Patient stable sleeping this a.m. Chest tube output appears to have diminished over the weekend Chest x-ray with no major changes IR lymph angiogram today AUTHENTICATED BY SRI ROMAN, ON 02/12/2024 08:21:01[facility]20[facility] Note [facility]09-15-2024 [facility] 02-11-2024 [facility]15-2024 [facility]09-14-2024 [facility]09-14-2024 [facility]09[facility]14-2024 [facility]09-14-2024 Note [facility]09-13-2024 [facility] 02-09-2024 [facility]13-2024 [facility]-20[facility]-13-2024 NotePt w/o new complaints Cxr stable Ct output lower - 95cc serous Flush tube today / pleur evac marked to ensure output accuracy Lymphangiogram planned for monday AUTHENTICATED BY SRI ROMAN, ON 02/09/2024 08:23:39[facility]09[facility]12-[facility] Xgtgkisb45-39-9966 Note [facility] Wclbacdo83-83-2583 [facility] 02-08-2024 [facility] Ltreojxh74-17-0807 [facility] Voitkcto91-42-6749 [facility] Tsiexads05-26-6959 [facility] Vieaccfm64-35-6847 [facility] Aofritcw09-46-2219 Note [facility] Uwhbweon83-31-0262 [facility] 02-06-2024 [facility] Fiswhtuo54-72-0561 [facility] Lmamffoc91-66-6947 [facility] Uwzzmomb84-20-3998 [facility] Thfeczvb83-67-5416 [facility] Aicwmkjy90-80-8134 Note [facility] Jgkxgjja68-80-8250 [facility] 02-05-2024 [facility] Jzadksdp70-74-5575 [facility] Ujbppgxl81-11-7241 [facility] Uojovemv44-67-4066 [facility] Lwbdpviq65-35-2442 [facility] Kvyzrpos91-21-2415 Note [facility] Pbqlkrjd51-70-2300 [facility] 02-03-2024 [facility] Laqgushl53-33-5022 [facility] Hzinqjch26-69-2669 [facility] Kfruvwzc35-76-2743 [facility] Eutbxtki55-96-7495 [facility] Amwurlqx02-29-1628 Note [facility] Spsoaepr04-92-6742 [facility] 02-02-2024 [facility] Umepohfy72-69-4892 [facility] Stqiaoek15-23-6148 [facility] Envfdoid38-83-0224 [facility] Bcwtlmsm72-25-2470 [facility] Qmbkbviv62-00-4234 Note [facility] Irokklpg52-49-5689 [facility] 01-31-2024 [facility] Zffnvwbl77-73-2300 [facility]inessH[facility] CenterRienmbfj99-01-6826 [facility] Icpuyqjf34-41-3125 [facility] Keitcsxa42-47-6310 [facility] Kcjsxbbp12-41-2831 Note [facility]09-03-2024 [facility] 01-30-2024 [facility] Atzlwmfh42-07-5731 [facility] Klcyugkq85-60-0952 [facility] Zkuhzhpw56-37-0950 [facility] Psezzctj08-43-3406 [facility] Lboocnqv29-48-9662 Note [facility]09-01-2024 [facility] 01-27-2024 [facility] HolinessHackensack University Medical CenterBzaibrvu95-85-7804 [facility]08-31-2024 [facility]08-31-2024 [facility] HolinessHackensack University Medical CenterNpuczege71-56-3283 [facility]08-30-2024 Note [facility]08-30-2024 [facility] 01-26-2024 [facility] HolinessHackensack University Medical CenterNwqngyem15-03-8138 [facility] HolinessHackensack University Medical CenterVydafzlm02-91-1601 NoteRiw[facility] center HolinessHackensack University Medical CenterXpocoexz99-55-6383 [facility]08-29-2024 [facility]08-28-2024 Note [facility]08-28-2024 [facility] 01-24-2024 [facility]08-27-2024 [facility]08-27-2024 [facility]08-27-2024 [facility]08-27-2024 [facility]08-26-2024 Note [facility]08-26-2024 [facility] 01-21-2024 [facility]08-24-2024 [facility]21-2024 History of Present illness Narrative* Rafaela Garcias RN - 01/17/2024 10:23 AM EDT Spoke with Sergei in [facility] and provided details for direct admission to [facility] at [facility] on Monday01/19/24 for Endoleak of Ruptured aneurysm Endograft for medical optimization prior to planned Explant of Endograft with Open Aneurysm Repair on Monday01/24/24. documented in this [id number] History of Present illness Narrative* Rafaela Garcias [...] Guerra to admit patient to [facility] at [facility] on 01/19/24 and plan for Explant of Endograft and Open Aortic Aneurysm Repair on 01/24/24. Case request made. Attempted to reach patient to notify patient of admission and surgery. No answer. Left message on voicemail with request to return call. documented in this [id number] History of Present illness Narrative* Rafaela Garcias RN - 01/11/2024 4:39 PM EDT Received request from Dr. Guerra to admit patient to [facility] at [facility] on 01/19/24 and plan for Explant of Endograft and Open Aortic Aneurysm Repair on 01/24/24. Case request made. Attempted to reach patient to notify patient of admission and surgery. No answer. Left message on voicemail with request to return call. documented in this [id number] Evaluation + Plan note* Assessment & Plan [...] graft in the left renal artery dario [place] Excluder endograft. Duplex sonography demonstrated that the [...] who did her original operative procedure at [facility] and the 2 of us will come up with a therapeutic solution for this patient. I will admit her to my service and Dr. Guerra has agreed to help me with her surgery. [id number] Miscellaneous Notes* Assessment & Plan Note - [...] graft in the left renal artery dario [place] Excluder endograft. Duplex sonography demonstrated that the [...] who did her original operative procedure at [facility] and the 2 of us will come up with a therapeutic solution for this patient. I will admit her to my service and Dr. Guerra has agreed to help me with her surgery. documented in this [id number] NoteAssessment Ruptured abdominal aortic aneurysm (AAA) (HCC) I reviewed the CT angiogram with the patient and her significant other who was in the room. 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 The patient had a ruptured abdominal aortic aneurysm that was treated with a parallel graft in the left renal artery and a [place] Excluder endograft. Duplex sonography demonstrated that the [...] who did her original operative procedure at [facility] and the 2 of us will [...] Aneurysm Repair; Surgeon: Edenilson Guerra DO; Location: [facility] HYBRID OR; Service: Gen-Vascular Current [...] MG tablet Take (more content not included)... [facility]08-13-2024 History of Present illness Narrative* Sarath [...] graft in the left renal artery dario [place] Excluder endograft. Duplex sonography demonstrated that the [...] who did her original operative procedure at [facility] and the 2 of us will [...] Aneurysm Repair; Surgeon: Edenilson Guerra DO; Location: [facility] HYBRID OR; Service: Gen-Vascular Current [...] significant pain. The note was dictated using [employer] dictation system. The voice recognition software is inherently subject to errors including those of syntax and sound- alike substitutions which may escape proofreading. In such instances, original meaning may be extrapolated by contextual derivation. documented in this [id number] Instructions* Patient Instructions* Sae Esparza MA - 01/09/2024 12:30 PM EDT How to contact your Care Team: Provider: MD Ana Fernandez CNP Jill Bender, PA Nurse: Ray Guido RN To reschedule office appointments call Scheduling [phone] In case of an emergency please call 911. When in need of refills please call the phone number listed above. Please include medication name, pharmacy name and specify 30 or 90 day supply Please check with your pharmacy within 24 hours of your request for refill. You must follow up as directed to continue current refills. Thank you! documented in this [id number] History of Present illness Narrative* Ray Guido RN - 01/05/2024 3:56 PM EDT Order received from Dr. Rey for CTA, urgently due to recent AAA US results of endo leak. Patient will require hydration and IV dye allergy protocol. Patient aware that she will be receiving a call with date and time of CTA for next week. documented in this [id number] History of Present illness Narrative* Michelle Littlejohn, [facility],PharmD - 01/03/2024 8:03 AM EDT Images from the original note were not included. Anticoagulation Progress Note Date of Visit: January 03, 2024 Patient Name: Scott Obregon : 1960 Age: 63 y.o. Scott Obregon had her INR checked and result called in by her home health nurse, Makenzie, from [facility]. Anticoagulation Summary As of 01/03/2024 INR goal: 2.0-3.0 TTR: 78.8% (11.6 mo) INR used for dosin.7 (01/03/2024) Warfarin maintenance plan: 2.5 mg (5 mg x 0.5) every Mon, Fri; 5 mg (5 mg x 1) all other days Weekly warfarin total: 30 mg Plan last modified: Michelle Littlejohn, [facility],PharmD (01/03/2024) Next INR check: 01/10/2024 Priority: [...] contact clinic with any changes. Michelle Littlejohn RPh,RohanD [facility] Dept: [phone] documented in this [id number] History of Present illness Narrative* Michelle Littlejohn [...] clinic with any changes. Michelle Littlejohn RPh,PharmD [facility] Dept: [phone] documented in this [id number] Evaluation + Plan note* Assessment & Plan [...] ultimately heal. 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 I also gave her a prescription for a handicap sticker to help with her fatigue. 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 [id number] Miscellaneous Notes* Assessment & Plan Note - [...] ultimately heal. 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 I also gave her a prescription for a handicap sticker to help with her fatigue. 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 documented in this [id number] NoteAssessment Ruptured abdominal aortic aneurysm (AAA) (HCC) The patient continues to recover from a heroic endovascular procedure to save her life. 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 I also gave her a prescription for a handicap sticker to help with her fatigue. 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 I also sent a consultation to Dr. Yisel Paiz because the patient has tenuous renal function and will need to be followed longitudinally. Scott Dorand 1960 63 y.o. female who presents to the office in followup of placement of an aortic stent graft and a left renal artery stent for ruptured abdominal aortic aneurysm. The patient was life flighted from [place] to [facility] where Dr. Bart Guerra and Dr. [...] Aneurysm Repair; Surgeon: Edenilson Guerra DO; Location: [facility] HYBRID OR; Service: Gen-Vascular Current [...] Mother Breast cancer Sister (more content not included)...[facility] 12-26-2023 History of Present illness Narrative* [...] ultimately heal. 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 I also gave her a prescription [...] aneurysm. The patient was life flighted from [place] to [facility] where Dr. Bart Guerra and Dr. [...] Aneurysm Repair; Surgeon: Edenilson Guerra DO; Location: [facility] OR; Service: Gen-Vascular Current Outpatient Medications Medication [...] significant pain. The note was dictated using [employer] dictation system. The voice recognition software is inherently subject to errors including those of syntax and sound- alike substitutions which may escape proofreading. In such instances, original meaning may be extrapolated by contextual derivation. documented in this [id number] Instructions* Patient Instructions* Sae Esparza MA - 12/26/2023 11:53 AM EDT How to contact your Care Team: Provider: MD Ana Fernandez CNP Jill Bender, PA Nurse: Ray Guido RN To reschedule office appointments call Scheduling [phone] In case of an emergency please call 911. When in need of refills please call the phone number listed above. Please include medication name, pharmacy name and specify 30 or 90 day supply Please check with your pharmacy within 24 hours of your request for refill. You must follow up as directed to continue current refills. Thank you! documented in this [id number] NoteBmp is stable no change in meds see how she's doing please AUTHENTICATED BY YING QUISPE, ON 12/22/2023 06:40:[address] [place] [address] 12-21-2023 History of Present illness Narrative* Michelle Littlejohn, [facility],PharmD - 12/21/2023 12:40 PM EDT Anticoagulation Progress Note Date of Visit: December 21, 2023 Patient Name: Scott Obregon : 1960 Age: 63 y.o. Scott Obregon was called for an anticoagulation follow-up visit. INR obtained via venipuncture. Patient had a POC fingerstick INR done yesterday by her home health nurse, Adilene, from [facility]. Fingerstick INR result was 4.4, so it was recommended that patient have a venipuncture comparison. Nurse was unable to do blood draw yesterday, so patient went to [facility] this morning. Anticoagulation Summary As of 12/21/2023 INR goal: 2.0-3.0 TTR: 79.6% (11.2 mo) INR used for dosin.9 (12/21/2023) Warfarin maintenance plan: 2.5 mg (5 mg x 0.5) every Mon, Wed, Fri; 5 mg (5 mg x 1) all other days Weekly warfarin total: 27.5 mg Plan last modified: Michelle Littlejohn [facility],PharmD (12/21/2023) Next INR check: 12/27/2023 Priority: [...] next Monday. Patient is due for a mvxg-gv-jqel visit in clinic, but according to nurse, [...] clinic with any changes. Michelle Littlejohn RPh,Alfredo [facility] Dept: [phone] documented in this [id number] History of Present illness Narrative* Michelle Littlejohn RPh, PharmD - 12/13/2023 1:13 PM EDT Images from the original note were not included. Anticoagulation Progress Note Date of Visit: December 13, 2023 Patient Name: Scott Obregon : 1960 Age: 63 y.o. Scott Obregon Had her INR checked and result called in by her home health nurse, Makenzie, from [facility]. Anticoagulation Summary As of 12/13/2023 INR goal: [...] clinic with any changes. Michelle Littlejohn RPh,PharmD [facility] Dept: [phone] documented in this [id number] History of Present illness Narrative* Justine Hodges [...] patient's identity and that they were in [place] at the time of the visit. I [...] that there are some limitations compared to fthd-wc-zgli evaluations. We elected to proceed. Anticoagulation Summary [...] clinic with any changes. Justine Hodges RPh,PharmD [facility] Dept: [phone] documented in this [id number] Telephone encounter Note* Telephone Encounter - Rachael Gipson RN - 12/06/2023 8:27 AM EDT error [id number] Miscellaneous Notes* Telephone Encounter - Rachael Gipson RN - 12/06/2023 8:27 AM EDT error documented in this [id number] History of Present illness Narrative* Adilene Bryan RPh,PharmD - 11/29/2023 12:02 PM EDT Images from the original note were not included. Anticoagulation Progress Note Date of Visit: November 29, 2023 Patient Name: Scott Obregon : 1960 Age: 63 y.o. Scott Obregon Spoke to Aidlene with [facility] . INR obtained from an outside source: [...] why INR is above the range. Adilene martin ESTHER called with INR results. She is [...] clinic with any changes. Adilene Bryan RPh,PharmD [facility] Dept: [phone] documented in this [id number] NoteGfr 45 hemoglobin 9 will improve with nutrition and hydration recheck on next visit no change in meds thanks. AUTHENTICATED BY YING QUISPE, ON 11/27/2023 07:17:41[facility] [id number] NoteHPI Here with Hi, discharge summary below reviewed. Here 11/23/2023. Doing physical therapy at home and sn drawing pt/inr every wk at home. For weakness twice wkly following bp at home. Bp today 100/60 sitting and 110/60 standing. OT involved too. Having ct angiogram abdomen 11/2023. 15th is angiogram and the 2nd is brachial index. Tsh/t4 appreciated. [facility] Scott Obregon Account: [id number] Admitted: 10/09/2023 Discharge Date/Time: 10/23/23 / 8:28 AM Handoff to PCP PCP to address the following Outpt Vas Surg f/u Smoking cessation Clinical Summary Scott Obregon is a 63 y.o. female with a history of Factor 5 Leiden on warfarin, Chronic Back Pain, Smoker, PVD who presented to [facility] with multiple syncopal episodes, r sided abdominal pain on 10/09/[address] abdomen pelvis without contrast showed very large ruptured infrarenal aortic aneurysm. Pt transferred to [facility] 10/09/23 for advanced surgical evaluation. [...] quit. Severe Protein Calorie Malnutrition: Per Hx. Mechanist consulted. Code status: Full Discharge Medications Discharge [...] Physician(s) Family: Ying Quispe DO, , Address: [facility] [address] Follow Up: Physicians, [facility] [place] [address] Follow up You are scheduled for your 1 month follow up appointment with Dr. Kruger on Monday11-16-23 at 8:00 am [facility] [address] [facility] [id number] Follow up You are scheduled for your Renal ultrasound on 11-16-2023 at 9:00 am in [place] Nothing to eat/drink after midnight the night before Edenilson Guerra, [address] [facility] [address] [facility] [address] Follow up in 1 month(s) Follow up in 1 month(s) [facility] [address] [place], [place] [address] Ying Quispe DO [address] [facility] (more content not included)...[facility]06-27-2024 History of Present illness Narrative* Ying [...] the 2nd is brachial index. Tsh/t4 appreciated. [facility] Scott Obregon Account: [id number] Admitted: 10/09/2023 Discharge Date/Time: 10/23/23 / 8:28 AM Handoff to PCP PCP to address the following Outpt Vas Surg f/u Smoking cessation Clinical Summary Scott Obregon is a 63 y.o. female with a history of Factor 5 Leiden on warfarin, Chronic Back Pain, Smoker, PVD who presented to [facility] with multiple syncopal episodes, r sided abdominal pain on 10/09/[address] abdomen pelvis without contrast showed very large ruptured infrarenal aortic aneurysm. Pt transferred to [facility] 10/09/23 for advanced surgical evaluation. [facility] was consulted10/12/23 to assume care upon transfer [...] quit. Severe Protein Calorie Malnutrition: Per Hx. Mechanist consulted. Code status: Full Discharge Medications Discharge [...] Physician(s) Family: Ying Quispe DO, , Address: [address] [place] [address] / [facility] [address] Follow Up: Physicians, [facility] [address] [facility] [address] [facility] [address] Follow up You are scheduled for your 1 month follow up appointment with Dr. Kruger on Monday11-16-23 at 8:00 am [place] [address] [facility] [address] Follow up You are scheduled for your Renal ultrasound on 11-16-2023 at 9:00 am in [place] Nothing to eat/drink after midnight the night before Edenilson Guerra DO [address] [facility] [address] [place] [id number] Follow up in 1 month(s) Follow up in 1 month(s) [facility] [address] [place], [place] [address] Ying Quispe DO [address] [facility] [address] Follow up Vitals: 11/23/23 1311 11/23/23 1317 [...] Aneurysm Repair; Surgeon: Edenilson Guerra DO; Location: [facility] HYBRID OR; Service: Gen-Vascular Social [...] mouth daily . naloxone (NARCAN) 4 mg/actuation [place] Administer 1 (one) spray (4 mg total) [...] effects of the medications. documented in this [id number] NoteNew patient - podiatry wound clinic VISIT Abigail Estrella CNP Patient Name: Scott Obregon. . Date of : 1960, 63 y.o.. Gender: female. Author: Abigail Estrella CNP Subjective: Patient is a 63-year-old female coming to wound clinic being referred by Dr. Kruger vascular surgeon at [facility] to the wound clinic for left foot necrotic ulcers. Patient sustained and underwent repair for triple abdominal aneurysm in September. She presented to [place] ED and was life flighted to [facility]. She had difficulty following up with her surgical team due to distance and she was referred to be seen by vascular surgery team here for follow-up. Patient has pending appointment with Dr. Rey December 25. Surgery at [facility] was completed by Dr. Guerra and Dr. [...] follow-up CTA to be completed here in [place]) Continue working on tobacco cessation. Patient states she has quit smoking but cigarettes were visible in her purse I will follow-up with the patient once PAL results are available. Patient has office phone number and address available, call immediately if there are any acute changes to the left foot AUTHENTICATED BY ABIGAIL ESTRELLA, ON 11/23/2023 07:01:[address] [place] [address] 11-22-2023 History of Present illness Narrative* Abigail [...] referred by Dr. Kruger vascular surgeon at [facility] to the wound clinic for left foot necrotic ulcers. Patient sustained and underwent repair for triple abdominal aneurysm in September. She presented to [place] ED and was life flighted to [facility]. She had difficulty following up with her surgical team due to distance and she was referred to be seen by vascular surgery team here for follow-up. Patient has pending appointment with Dr. Rey December 25. Surgery at [facility] was completed by Dr. Guerra and Dr. [...] order follow-up CTA to be completed here [facility]) Continue working on tobacco cessation. Patient states she has quit smoking but cigarettes were visible in her purse I will follow-up with the patient once PAL results are available. Patient has office phone number and address available, call immediately if there are any acute changes to the left foot documented in this [id number] Instructions* Patient Instructions* Makenzie Abrams RN - 11/22/2023 2:34 PM EDT [place] left great toe and fifth toe ulcers with Betadine, secure with Kerlix. At home continue painting toes if they become wet. Protect from injury, keep foot warm documented in this [id number] History of Present illness Narrative* Michelle Littlejohn, [...] 37.5 mg Plan last modified: Adilene Bryan, [facility],PharmD (11/14/2023) Next INR check: 11/29/2023 Priority: [...] clinic with any changes. Michelle Littlejohn RPh,PharmD [facility] Dept: [phone] documented in this [id number] Telephone encounter Note* Telephone Encounter - La [...] is it scheduled): 11/23/23 Please send to [facility] [address] [place], [place] - [address] [place] [address] [facility] [address] Follow up: Refill pending for review without additional follow up based on information above. [id number] Miscellaneous Notes* Telephone Encounter - La Nena [...] is it scheduled): 11/23/23 Please send to [facility] [address] [place], [place] - [address] [place] [address] [facility] [place] [address] Follow up: Refill pending for review without additional follow up based on information above. documented in this [id number] Evaluation + Plan note* Assessment & Plan [...] for her to be seen in the [facility], and I have also placed a referral for her to see Dr. Sarath Rey in [place] as it is difficult for them to get to [place] for routine follow-up. We will arrange for [...] recommend her systolic be less than 130. [id number] Miscellaneous Notes* Assessment & Plan Note - [...] for her to be seen in the [place] wound center, and I have also placed a referral for her to see Dr. Sarath Rey in [place] as it is difficult for them to get to [place] for routine follow-up. We will arrange for [...] be less than 130. documented in this [id number] [facility] Physicians [address] [place] [address], [address] [place] [address] Scott Obregon is a 63 y.o.female who [...] for her to be seen in the [place] wound center, and I have also placed a referral for her to see Dr. Sarath Rey in [place] as it is difficult for them to get to [place] for routine follow-up. We will arrange for [...] Aneurysm Repair; Surgeon: Edenilson Guerra DO; Location: [facility] HYBRID OR; Service: Gen-Vascular Family [...] mouth every 6 (si (more content not included)...[facility]06-21-2024 History of Present illness Narrative* Tylor Kruger MD - 11/17/2023 8:17 AM EDT Images from the original note were not included. [facility] Physicians [address] [place] [address], [address] [place] [address] Scott Obregon is a 63 y.o.female who [...] for her to be seen in the [place] wound center, and I have also placed a referral for her to see Dr. Sarath Rey in [place] as it is difficult for them to get to [place] for routine follow-up. We will arrange for [...] Aneurysm Repair; Surgeon: Edenilson Guerra DO; Location: [facility] HYBRID OR; Service: Gen-Vascular Family [...] mouth daily . naloxone (NARCAN) 4 mg/actuation [place] Administer 1 (one) spray (4 mg total) [...] y.o. : 1960 VISIT DATE: 10/09/2023 CSN: [id number] PCP: Ying Quispe, Chief Complaint Patient presents with Syncope Pt [...] -- -- -- (!) -- -- -- 05/13/24 1811 101/82 -- -- (!) 102 (!) [...] ms QTC Calculation (Bezet) 449 ms P Eden 55 degrees R Eden 55 degrees T Eden 99 degrees Type and Screen Result Value Ref Range ABORh O Positive Antibody Screen Negative Specimen Expires 10/12/2023 23:59 EST Prepare RBC: 2 Units Result Value Ref Range Product ID Red Blood Cells Blood Type Code 5100 Product Code [id number] Status Info Ready for issue Unit Number [id number] Blood Type O Pos Cross Match Compatible Product ID Red Blood Cells Blood Type Code 5100 Product Code [id number] Status Info Ready for issue Unit Number [id number] Blood Type O Pos Cross Match Compatible [...] Respectfully, Tylor Kruger MD documented in this [id number] Instructions* Patient Instructions* Rachael Gipson RN - 11/17/2023 8:12 AM EDT We will see you back in the office: to follow up with Dr. Rey in [place] and wound care Labs: creatinine lab draw prior to CT scan Medication Changes: The following testing has been ordered for you: CT angiogram of abdomen/pelvis with lower extremityrunoff Scheduling should reach out to you to schedule testing But if you do not hear from them please call the number below To schedule testing please reach out to [phone] and follow the prompts to scheduling If you need to schedule, cancel or reschedule an appointment please call [place] office [phone] If you have any questions please call JACKIE Cano [phone] documented in this [id number] History of Present illness Narrative* Adilene Bryan RPh,PharmD - 11/14/2023 9:59 AM EDT Images from the original note were not included. Anticoagulation Progress Note Date of Visit: November 14, 2023 Patient Name: Scott Obregon : 1960 Age: 63 y.o. Scott Winters Mago Head with [facility] called with INR results. INR obtained from [...] clinic with any changes. Adilene Bryan RPh,PharmD [facility] Dept: [phone] documented in this [id number] Patient's home Progress note* Actions CP assess, [...] level / walkout documented in this encounter [id number] History of Present illness Narrative* Michelle Littlejohn RPh,PharmD - 11/08/2023 4:07 PM EDT Anticoagulation Progress Note Date of Visit: November 08, 2023 Patient Name: Scott Obregon : 1960 Age: 63 y.o. Scott Obregon Had her INR checked and result called in by her home health nurse, Camila, from [facility]. Anticoagulation Summary As of 11/08/2023 INR goal: [...] dose of 42.5 mg/week since discharging from [facility]. INR is therapeutic today at 2.3. Since INR is in range, will continue same dose. Will recheck next week again to ensure stability. PLAN: Will continue weekly warfarin dose of 42.5 mg/week. Will check next INR in 1 week unless there are any changes before then. Encouraged patient to contact clinic with any changes. Michelle Littlejohn RPh,PharmD [facility] Dept: [phone] documented in this [id number] Patient's home Progress note* Actions [facility] farrukh Patient's goals for HomeCare: to [...] dry them thoroughly. documented in this encounter [id number] Patient's home Progress note* Actions [facility] Clinical Ki chadwick Patient's goals for [...] dry them thoroughly. documented in this encounter [id number] History of Present illness Narrative* Rafaela Garcias RN - 11/03/2023 11:02 AM EDT Reviewed with Dr. Guerra post op follow up appt with Cate Contreras DUPLICATOR PUNCH SET UP OPERATOR s/p EVAR and Right Renal Stenting 10/10/[address] Guerra and Dr. Kruger. Per review, patient is scheduled for follow up with on 11/16 with renal ultrasound. Per Dr. Guerra, patient to continue follow up with Dr. Kruger and does not need to continue followup with us. Patient aware of follow up with Dr. Kruger documented in this [id number] NoteOffice Visit Patient Name: Scott bOregon MR #: [id number] Assessment/Plan: I saw Scott in the office today for the one week Vascular surgery follow-up. she is a 63 y.o. female with history of Hyperlipidemia, hypertension, factor 5 Leiden on coumadin, hypothyroidism, appendicitis s/p laparoscopic appendectomy (09/14/2018) who presented to [facility] on 10/09/2023 with a ruptured infrarenal abdominal aortic aneurysm, acute blood loss anemia, hemorrhagic shock and underwent emergent EVAR and snorkel stent to left renal artery, right brachial artery cutdown on 10/10/[address] Guerra and Dr. Kruger. [facility]. 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 she is a 63 y.o. female with history of Hyperlipidemia, hypertension, factor 5 Leiden on coumadin, hypothyroidism, appendicitis s/p laparoscopic appendectomy (09/14/2018) who presented to [facility] on 10/09/2023 with a ruptured [...] has lost a considerable amount of weight, 5, 130 lbs. 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 May DC to home Home nursing PT/OT [...] kg/m ROS Physical Exam documented in this [id number] [facility]05-23-2024 Note [facility] 10-[facility]2024 Note [facility]05-19-2024 [facility] 10-14[facility]2023 [facility]2024 Note [facility]05-15-2024 History of Present illness Narrative* Yakelin Iqbal MA - 10/11/2023 9:57 AM EDT Patient is s/p emergent EVAR with renal stenting with Dr. Guerra/Dr Kruger. Per Cheyenne Carey DNP,patient needs a 1 month follow up appointment with Dr Kruger only along with a renal duplex. She is scheduled for renal duplex on 11-16-2023 at 9:00 am in [place] then she will see Dr Kruger on Monday11-17-2023 at 8:00am in the [facility] office location. Patient aware/AVS updated documented in this [id number] [facility]05-15-20[facility]-2024 NoteSubjective Patient ID: Scott Obregon is [...] to increase boost to BID Felicity Olson [facility] [phone] AUTHENTICATED BY FELICITY OLSON, ON 09/26/2023 09:39:34[facility] 09-26-2023 History of Present illness Narrative* [...] increase boost to BID Felicity Olson CNP [facility] [phone] documented in this [id number] History of Present illness Narrative* Alcides Leary [...] 42.5 mg Plan last modified: Adilene Bryan, [facility],PharmD (02/15/2023) Next INR check: 10/12/2023 Priority: [...] patient to contact clinic with any changes. [facility] Dept: [phone] Associated attestation - Michelle Littlejohn RPh,PharmD - 09/07/2023 8:20 AM EDT I, Michelle Littlejohn RPh,PharmD, attest that I was present during the patient encounter. I agree withthe documentation, assessment, and plan outlined in the below documentation. documented in this [id number] History of Present illness Narrative* Theresa Boykin [...] symptoms - Advised patient to follow-up with PCP/rattle leak and squeak repairer re: PAL results - Nursing notes reviewed KATHY Higuera, PABetina [facility] Neurosurgery Office: Chief Complaint: Back Pain (Ref [...] studies if clinically indicated. documented in this [id number] History of Present illness Narrative* Michelle Littlejohn [...] Adilene Bryan, ANDREA,PharmD (02/15/2023) Next INR check: 09/07/2023 Priority: Maintenance [...] clinic with any changes. Michelle Littlejohn RPh,PharmD [facility] Dept: [phone] documented in this [id number] History of Present illness Narrative* Yfn Puckett Jr., ROXANNEM - 07/18/2023 9:28 AM EST Right-sided weakness. [...] well and still working. documented in this [id number] History of Present illness Narrative* Justine Hodges, [...] 42.5 mg Plan last modified: Adilene Bryan, [facility],PharmD (02/15/2023) Next INR check: 08/10/2023 Priority: [...] clinic with any changes. 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 documented in this [id number] History of Present illness Narrative* Arlette Fernandes [...] 42.5 mg Plan last modified: Adilene Bryan, [facility],PharmD (02/15/2023) Next INR check: 07/13/2023 Priority: [...] 62 y.o. female was seen at the [facility]. She is doing well and is able to correctly confirm the dose of warfarin, and denies any changes or concerns. Warfarin taken in the previous 7 days: 42.5 mg INR is therapeutic today at 2.1. Patient missed 3 doses around [place] due to running out of medication and not being able to contact doctor to get a refill for a few days. We informed the patient that the clinic is able to provide refills for her in the future. She also has started to drink boost around [place]. She is drinking one boost every other [...] patient to contact clinic with any changes. [facility] Dept: [phone] Associated attestation - Adilene Bryan RPh,PharmD - 06/07/2023 8:30 AM EST Adilene Peter, attest that I was present during the patient encounter. I agree with the documentation, assessment, and plan outlined in the below documentation. documented in this [id number] History of Present illness Narrative* Adilene Bryan RPh,PharmKirk - 05/03/2023 8:12 AM EST Anticoagulation Progress [...] 42.5 mg Plan last modified: Adilene Bryan [facility],PharmD (02/15/2023) Next INR check: 06/07/2023 Priority: [...] 62 y.o. female was seen at the [facility] Anticoagulation Clinic. She is able to correctly [...] clinic with any changes. Adilene Bryan RPh,PharmD [facility] Dept: [phone] documented in this [id number] Instructions* Patient Instructions* Adilene Bryan RPh,PharmKirk - 05/03/2023 8:10 AM EST If you experience any of the following symptoms within 24 hours of your next appointment, or you have been in close contact with anyone confirmed or suspected to have coronavirus/COVID-19 in the past10 days please call us to reschedule at Dept: [phone]. Fever Cough Shortness of breath Difficulty breathing Chills Repeated shaking with chills Muscle pain Headache Sore throat Any loss of taste or smell Nausea, vomiting or diarrhea If you are screened positive for any of the above upon entering the building, please call us at Dept: [phone] for further instructions before you proceed to the clinic. Thank you for adhering to our precautions to keep our patients and providers safe! documented in this [id number] History of Present illness Narrative* Ying Quispe, [...] effects of the medications. documented in this [id number] History of Present illness Narrative* Michelle Littlejohn, [facility],PharmD - 04/05/2023 8:19 AM EST I, Michelle Littlejohn, attest that I agree with the documentation, assessment, and plan outlined [facility]. * Justine Hodges RPh,PharmD - 04/05/2023 [...] patient to contact clinic with any changes. Justnie Hodges RPh,PharmD [facility] Dept: [phone] documented in this [id number] History of Present illness Narrative* Michelle Littlejohn [...] clinic with any changes. Michelle Littlejohn RPh,PharmD [facility] Dept: [phone] documented in this [id number] History of Present illness Narrative* Adilene Bryan RPh,Alfredo - 02/15/2023 8:02 AM EDT Anticoagulation Progress [...] 62 y.o. female was seen at the [facility]tico[facility] Clinic. She is able to correctly [...] clinic with any changes. Adilene Bryan RPh,PharmD [facility] Dept: [phone] documented in this [id number] Instructions* Patient Instructions* Adilene Bryan RPh,PharmD - 02/15/2023 7:59 AM EDT If you experience any of the following symptoms within 24 hours of your next appointment, or you have been in close contact with anyone confirmed or suspected to have coronavirus/COVID-19 in the past10 days please call us to reschedule at Dept: [phone]. Fever Cough Shortness of breath Difficulty breathing Chills Repeated shaking with chills Muscle pain Headache Sore throat Any loss of taste or smell Nausea, vomiting or diarrhea If you are screened positive for any of the above upon entering the building, please call us at Dept: [phone] for further instructions before you proceed to the clinic. Thank you for adhering to our precautions to keep our patients and providers safe! documented in this [id number] History of Present illness Narrative* Michelle Littlejohn [...] clinic with any changes. Michelle Littlejohn RPh,PharmD [facility] Dept: [phone] documented in this [id number] History of Present illness Narrative* Ying Quispe, [...] effects of the medications. documented in this [id number] History of Present illness Narrative* Barbara Li [...] 42.5 mg Plan last modified: Lavon Mcmullen [facility],PharmD (01/16/2023) Next INR check: 01/23/2023 Priority: [...] to contact clinic with any changes. [facility] ANTICOAGULATION CLINIC Dept: [phone] Associated attestation - Lavon Mcmullen RPh, PharmD - 01/16/2023 8:34 AM EDT I, Lavon Mcmullen, attest that I was present during the patient encounter. I agree with the documentation, assessment, and plan outlined in the below documentation. documented in this [id number] History of Present illness Narrative* Adilene Bryan [...] 45 mg Plan last modified: Adilene Bryan, [facility],PharmD (01/09/2023) Next INR check: 01/16/2023 Priority: [...] patient to contact clinic with any changes. [facility] Dept: [phone] documented in this [id number] Instructions* Patient Instructions* Adilene Bryan RPh,PharmD - 01/09/2023 8:01 AM EDT If you experience any of the following symptoms within 24 hours of your next appointment, or you have been in close contact with anyone confirmed or suspected to have coronavirus/COVID-19 in the past10 days please call us to reschedule at Dept: [phone]. Fever Cough Shortness of breath Difficulty breathing Chills Repeated shaking with chills Muscle pain Headache Sore throat Any loss of taste or smell Nausea, vomiting or diarrhea If you are screened positive for any of the above upon entering the building, please call us at Dept: [phone] for further instructions before you proceed to the clinic. Thank you for adhering to our precautions to keep our patients and providers safe! documented in this [id number] History of Present illness Narrative* Michelle Littlejohn [...] as Boost or Ensure. PLAN: Will boost tonjeffrey's dose to 10 mg, then resume dose of 5 mg daily for a total of 40 mg this week. This is about 14% more than what she has been taking. Will check next INR in 1 week unless there are any changes before then. Encouraged patient to contact clinic with any changes. Michelle Littlejohn RPh,PharmD [facility] Dept: [phone] documented in this [id number] History of Present illness Narrative* Adilene Bryan RPhPharmKirk - 12/26/2022 8:13 AM EDT Images from [...] 62 y.o. female was seen at the [facility] Anticoagulation Clinic. She confirmed the dose of [...] clinic with any changes. Adilene Bryan RPh,PharmD [facility] Dept: [phone] documented in this [id number] Instructions* Patient Instructions* Adilene Bryan RPh,PharmD - 12/26/2022 8:11 AM EDT If you experience any of the following symptoms within 24 hours of your next appointment, or you have been in close contact with anyone confirmed or suspected to have coronavirus/COVID-19 in the past10 days please call us to reschedule at Dept: [phone]. Fever Cough Shortness of breath Difficulty breathing Chills Repeated shaking with chills Muscle pain Headache Sore throat Any loss of taste or smell Nausea, vomiting or diarrhea If you are screened positive for any of the above upon entering the building, please call us at Dept: [phone] for further instructions before you proceed to the clinic. Thank you for adhering to our precautions to keep our patients and providers safe! documented in this [id number] History of Present illness Narrative* Michelle Littlejohn [...] ASSESSMENT: Scott Obregon is new to our [facility] anticoagulation clinic. Indication for warfarin therapyis DVT. [...] before then. [facility], but patient is unable due to work schedule. Encouraged patient to contact clinic with any changes. Michelle Littlejohn RPh,PharmD [facility] Dept: [phone] documented in this [id number] History of Present illness Narrative* Lita Gu [...] Products Rash and GI Intolerance Seafood, Vomiting [facility] has a current medication list which includes [...] MD Template Design P[place] documented in this [id number] History of Present illness Narrative* Ying Quispe, [...] at all Somewhat difficult documented in this [id number] History of Present illness Narrative* Lita Gu [...] Iodide Containing Products GI Intolerance Seafood, Vomiting [facility] has a current medication list which includes [...] MD Template Design [place] documented in this [id number] History of Present illness Narrative* Lita Gu [...] Iodide Containing Products GI Intolerance Seafood, Vomiting [facility] has a current medication list which includes [...] LAPAROSCOPIC; Surgeon: Татьяна Jenkins MD; Location: [place]; Service: General Surgery FH Family History Problem [...] MD Template Design [place] documented in this [id number] History of Present illness Narrative* Amalia Fernandez [...] routed to ordering provider. documented in this [id number] Note* Addendum Note - Ying Quispe DO - 08/15/2022 5:28 PM EDTAddended by: YING QUISPE on: 08/15/2022 05:28 PM Modules accepted: Orders [id number] Miscellaneous Notes* Addendum Note - Ying Quispe DO - 08/15/2022 5:28 PM EDTAddended by: YING QUISPE on: 08/15/2022 05:28 PM Modules accepted: Orders documented in this [id number] History of Present illness Narrative* Ying Mccurdywell, DO - 08/15/2022 5:07 PM EDT Images [...] effects of the medications. documented in this [id number] History of Present illness Narrative* Lita Gu [...] left shoulder. Energy levels fair. Works at [employer]. No pregnancies. No miscarriages in mother, h/o [...] MD Template Design PNSHETH documented in this [id number] Instructions* Patient Instructions* Ying Quispe DO - 06/13/2022 4:31 PM EST Do eliquis 5mg twice daily for 3 months when done with 10mg twice daily for 7 days documented in this [id number] History of Present illness Narrative* Ying Quispe [...] left upper extremity (HCC) compression sleeve at [facility] - Ambulatory referral to Hematology / Oncology; [...] - - Somewhat difficult documented in this [id number] Hospital course Narrative* Kat De Dios MD - 06/11/2022 9:31 AM EST Images from the original note were not included. [facility] DISCHARGE SUMMARY -- [facility] Scott Obregon Admitted: 06/10/2022 Discharge Date: [...] Up: Ying Quispe, [address] [place] [id number] Follow up Ying Quispe DO [address] [place] [id number] Lita Gu MD [address] [facility] [address] Follow up Condition at Discharge: Stable Disposition: Home On day of discharge, I performed a final bedside evaluation including a physical exam. I reviewed discharge recommendations with the patient in person. Patient instructions, including activity, were given to the patient/family at discharge. Time spent on discharge: > 30 minutes Completed by: Kat De Dios on 06/11/22, 9:31 AM documented in this [id number] Hospital Discharge instructions * Discharge Instr - [...] include work-up for DVT documented in this [id number] Note* Plan of Care - Stacy Cano [...] discharge plan and instructions Outcome: Partially Met [id number] Miscellaneous Notes* Plan of Care - Stacy [...] the patient. I discussed the patient with PATIENT ACCOUNTS SPECIALIST/PA. I agree with the PATIENT ACCOUNTS SPECIALIST/PA treatment plan. I agree with the PATIENT ACCOUNTS SPECIALIST/PA plan of care. I agree with the PATIENT ACCOUNTS SPECIALIST/PA dispo as documented. Patient is a 61-year-old [...] All other components within normal limits Narrative: [facility] Laboratory Services has implemented the [...] Procedure Abnormality Status --------- ------ CBC Auto Differential[[id number]] Abnormal Final result Please view results for these tests on the individual orders. Imaging Results XR Chest 1 View (Results Pending) Ultrasound Duplex Venous Arm LEFT (Results Pending) CT Head Or Brain Without Contrast (Results Pending) Procedures . documented in this [id number] Note* Plan of Care - Svetlana Monaco [...] discharge plan and instructions Outcome: Partially Met [id number] History of Present illness Narrative* Mendez Tang - 06/10/2022 1:26 PM EST Vascular Surgery Inpatient Consult 06/10/2022 Mendez Eng [facility] Patient: Scott Obregon Date of : 1960 [...] cephalic and basilic veins. documented in this [id number] History and physical note* Adia Rodriguez MD - 06/10/2022 1:25 PM EST [facility] HISTORY AND PHYSICAL -- [facility] Patient Name: Scott Obregon : 1960 MR #: [id number] Admit Date: 06/10/2022 Physicians: Ying Quispe DO [...] 06/10/22 1:33 PM Medications 06/10/22 1:33 PM [facility] Work Phone: 1(849) 177-369301-13-2023 History and physical note* Adia Rodriguez MD - 06/10/2022 1:25 PM EST [facility] HISTORY AND PHYSICAL -- [facility] Patient Name: Scott Obregon : 1960 MR #: [id number] Admit Date: 06/10/2022 Physicians: Ying Quispe DO [...] Medications 06/10/22 1:33 PM documented in this [id number] Emergency department Note* Mendez Ariza RN - 06/10/2022 12:30 PM EST Report called to floor nurse. [id number] Emergency department Note* Mendez Ariza RN - 06/10/2022 12:30 PM EST Report called to floor nurse. * Mendez Ariza RN - 06/10/2022 11:21 AM EST [facility] cartside. thisnurse told to hold IV and heparin at this time. Pt may be going home and will be started on oral meds. No other needs. SRx2. Call light in reach. * Bambi Whyte PA-C - 06/10/2022 9:08 AM EST [facility] EMERGENCY DEPARTMENT XIAO NOTE: NAME: Scott Obregon CSN: [id number] 61 y.o. PCP: Ying Quispe DO History: [...] All other components within normal limits Narrative: [facility] Laboratory Services has implemented the [...] Procedure Abnormality Status --------- ------ CBC Auto Differential[[id number]] Abnormal Final result Please view results for [...] admitted the patient we will consult vascular fire control technician. This provider spoke with Dr. Pierce vascular surgeon, he will consult with hospitalist as needed. Clinical Impression: 1. Acute deep vein thrombosis (DVT) of axillary vein of left upper extremity (HCC) 2. Chest pain, unspecified type Disposition: ED Disposition ED Disposition Hospitalize Condition -- Comment Phone call required?: No Bambi Whyte PA-C ED Advanced Practice Provider [facility] (Please note that portions of [...] Comments: NEXT PT 1 documented in this [id number] Note* Plan of Care - Adia Rodriguez [...] heparin drip. Full consult note will follow. [id number] Emergency department Note* Mendez Ariza RN - 06/10/2022 11:21 AM EST [facility]. thisnurse told to hold IV and heparin at this time. Pt may be going home and will be started on oral meds. No other needs. SRx2. Call light in reach. [id number] Note* ED Attestation Note - Shira Lopez MD - 06/10/2022 10:15 AM EST I personally interviewed the patient. I personally examined the patient. I discussed the patient with PATIENT ACCOUNTS SPECIALIST/PA. I agree with the PATIENT ACCOUNTS SPECIALIST/PA treatment plan. I agree with the PATIENT ACCOUNTS SPECIALIST/PA plan of care. I agree with the PATIENT ACCOUNTS SPECIALIST/PA dispo as documented. Patient is a 61-year-old [...] All other components within normal limits Narrative: [facility] Laboratory Services has implemented the [...] Procedure Abnormality Status --------- ------ CBC Auto Differential[[id number]] Abnormal Final result Please view results for these tests on the individual orders. Imaging Results XR Chest 1 View (Results Pending) Ultrasound Duplex Venous Arm LEFT (Results Pending) CT Head Or Brain Without Contrast (Results Pending) Procedures . [id number] Physician Emergency department Note* Bambi Whyte PA-C - 06/10/2022 9:08 AM EST [facility]ENCY DEPARTMENT XIAO NOTE: NAME: Scott Obregon CSN: [id number] 61 y.o. PCP: Ying Quispe DO History: [...] All other components within normal limits Narrative: [facility] Laboratory Services has implemented the [...] Procedure Abnormality Status --------- ------ CBC Auto Differential[[id number]] Abnormal Final result Please view results for [...] admitted the patient we will consult vascular fire control technician. This provider spoke with Dr. Pierce vascular surgeon, he will consult with hospitalist as needed. Clinical Impression: 1. Acute deep vein thrombosis (DVT) of axillary vein of left upper extremity (HCC) 2. Chest pain, unspecified type Disposition: ED Disposition ED Disposition Hospitalize Condition -- Comment Phone call required?: No Bambi Whyte PA-C ED Advanced Practice Provider [facility] (Please note that portions of this note have been completed with a voice recognition software. Efforts were made to correct any errors, but occasionally words are mis-transcribed.) Bambi Whyte PA-C 06/10/22 1145 Bambi Whyte PA-C 06/10/22 1201 [id number] Emergency department Triage note* Mendez Ariza RN [...] fingers. Pt in no distress. GCS 15. [id number] Emergency department Note* Leanne Reese Taylor - 06/10/2022 8:48 AM EST Bed: 15 Expected date: Expected time: Means of arrival: Comments: NEXT PT 1 [id number] History of Present illness Narrative* Ying Quispe DO - 06/06/2022 11:48 AM EST Images from the original note were not included. HPI 2 weeks of hand/feet white/bluish worse with weather changes. 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 Denies [...] if not better in a [facility] return if ok will see in spring/summer [...] - - Somewhat difficult documented in this [id number] History of Present illness Narrative* Ying Quispe [...] LAPAROSCOPIC; Surgeon: Татьяна Jenkins MD; Location: [place]; Service: General Surgery Social History Socioeconomic History [...] effects of the medications. documented in this [id number] History of Present illness Narrative* Felicity Olson, [...] has apast medical history of Anemia, Appendicitis (2018), Disease of thyroid gland, Hyperlipidemia, Hypertension, and [...] days . Electronically signed by Felicity Olson [facility] Depression Screening 01/01/2018 01/14/2019 09/29/2020 05/12/2021 01/05/2022 [...] at all - - documented in this [id number] History of Present illness Narrative* Yfn Puckett [...] medical complexity decision making. documented in this [id number] History of Present illness Narrative* Ying Quispe, - 11/18/2021 8:23 AM EDT Images from [...] Encounters: 11/18/21 138/70 11/11/21 131/78 06/21/21 126/80 01/20/22 135/84 Past Medical History: Diagnosis Date Anemia [...] Lipid- Due not fasting documented in this [id number] Telephone encounter Note* Telephone Encounter - Arlette [...] this refill. Please send to Preferred pharmacies: [facility] [place], [place] - [address] [facility] [address] [facility] [address] Pt Call Back Number Patient call back message sent to the [facility] clinical [place]. Mary Shaver [id number] Miscellaneous Notes* Telephone Encounter - Arlette Benavidez [...] this refill. Please send to Preferred pharmacies: [facility] - [place], [place] - [address] [address] Pt Call Back Number Patient call back message sent to the [facility]. Mary Shaver documented in this [id number] History of Present illness Narrative* Ying Quispe [...] effects of the medications. documented in this [id number] History of Present illness Narrative* Yfn Blandmagdaleno Taylor, DPM - 06/17/2021 4:47 PM EST [...] LAPAROSCOPIC; Surgeon: Татьяна Jenkins MD; Location[place]; Service: General Surgery Social History Socioeconomic History [...] overlying skin and are not none transilluminate [place]. No fascial pain with compression of palpation. [...] medical complexity decision making. documented in this [id number] History of Present illness Narrative* Ying Quispe, [...] difficult at all - documented in this [id number] History of Present illness Narrative* Bambi Huynh MD - 09/29/2020 1:58 PM EDT [facility] Primary Care Physicans [address] [place] [address] Scott Obregon 1960 [id number] HPI: 60-year-old female with history of hypothyroidism, [...] Gets together: Three times a week Attends mormonism service: Not on file Active member of [...] Not difficult at all documented in this [id number] Telephone encounter Note* Telephone Encounter - Bambi Huynh MD - 07/29/2020 6:59 AM EST Patient overdue for appointment [id number] Miscellaneous Notes* Telephone Encounter - Bambi Huynh MD - 07/29/2020 6:59 AM EST Patient overdue for appointment documented in this encounterOhioHealthDischarge summary Author Constantin Jain [facility] Note Date/Time September 15, 2024 7:5 1am [facility] Medical Records Department [address] [place] [address] Emergency Department Summary 09/15/24 MR#: [id number] Acct: [id number] Name: SCOTT OBREGON Rep #:[id number] 15 : 1960 64 From: Constantin Jain MD PCP: Millie Massey MD Status:REG ER Location: ED HPI History of Present Illness Chief Complaint: Shortness of Breath Narrative Narrative: Patient is sent from [facility] facility where she is DNR comfort care only, she is a dialysis patient and has a lot of medical problems including clotting disorders, peripheral arterial disease, ESRD, and a history of pulmonary edema that staff at the [facility] states has improved with Lasix inthe past, she has been dyspneic for the last 12 to 24 hours, and the patient complains of chest pressure as well. She has been coughing no sputum production, she is orthopneic and denies any fevers or chills. No GI symptoms or recent vomiting. She is on chronic oxygen therapy at the [facility], unknown how much at baseline but at the [facility] they have had her nasal cannula up to 5 L this past day. [facility] Medical History Raynaud disease End stage renal [...] bisacodyl 10 mg rectal suppository 10 mg KY DAILY PRN constipation 07/31/24 Unknown History cholecalciferol [...] tablet acetaminophen 650 mg rectal 650 mg KY Q4H PRN fever or pain 08/14/24 Unknown History suppository dextrose 40 % oral gel (Glucose 10 g PO Q15M PRN hypog lycemia 08/14/24 Unknown History Gel) mirtazapine 15 mg tablet 15 mg PO QHS 08/14/24 Unknow n History sodium phosphates 19 gram-7 118 ml [place] DAILY PRN consti pation 08/14/24 Unknown History [...] treatment, she had 1 earlier at the [facility] and she said it helped a little. [...] reasonable to send her back to the [facility], andrylee will be dialyzed on first shift Monday. I will have staff contact nurses at the [facility] and discuss her oxygen status, the possibility [...] 84.1 H Lymph % (Auto) 6.9 L Bates % (Auto) 6.1 Eos % (Auto) 1.5 [...] of significant diffuse pulmonary vascular congestion with odbanzsr-rx-zviqm bilateral pleural effusions. Underlying pneumonia to be ruled out. Follow-up until resolution is recommended. Reading Location: [id number] Rhythm Strip Rhythm Strip: Sinus Tach Rate: 110 Ectopy: None EKG Initial EKG: Attestation: I personally reviewed and interpreted this EKG as follows: Interpretation: No Acute Injury Pattern, Sinus Tachycardia and Non-Specific ST Changes Management Discussion w/another healthcare provider: Direct Care Specialist (nephrology Dr. Barrios) Discharge Plan Triage Chief [...] tx acetaminophen 650 mg suppository 650 mg KY Q4H PRN (Reason: fever or pain) Enema 19-7 gram/118 mL enema 118 ml KY DAILY PRN (Reason: constipation) Rx Instructions: NEEDED [...] DISTRESS) bisacodyl 10 mg suppository 10 mg KY DAILY PRN (Reason: constipation) glucagon HCl [Glucagon [...] have the capability of dialyzing patients at [facility] until Monday after 7 AM 09/16/2024. Print Language: Colombian Disposition Disposition: Home, Self Care What to do if you have Problems For any increased pain, shortness of breath, bleeding, nausea or vomiting, chestpain, or any unexpected problems, contact your Primary Care Provider. Call [facility] ([phone]) or report to the closest Emergency Room. Call 911 if necessary. 09/15/24 0751 <Electronically signed by Constantin Jain MD> Cosigner Signature (if applicable): CC: Millie Massey MD ~ Signed [facility] Work Phone: Evaluation note* Diagnosis Hypothyroidism, unspecified [...] deep venous thrombosis [facility] Diagnosis Acute deep vein thrombosis [...] Hypothyroidism, unspecified type [facility] Diagnosis Ruptured abdominal aortic aneurysm (AAA), [...] of toe- Primary PVD (peripheral vascular disease) ([facility]) Unspecified peripheral vascular disease documented in this [...] extremity (HCC)- Primary [facility] Diagnosis Acute deep vein thrombosis (DVT) of axillary vein of left upper extremity (HCC)- Primary [facility]* Diagnosis PVD (peripheral vascular disease) (HCC)- Primary Unspecified peripheral vascular disease 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) Renal insufficiency Unspecified disorder of kidney and ureter [facility] Diagnosis Acute deep vein thrombosis (DVT) of axillary vein of left upper extremity (HCC)- Primary [facility] Diagnosis 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)- Primary Postoperative leak [facility] Diagnosis 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)- Primary Elevated serum creatinine Other nonspecific findings on examination of blood documented [facility] Diagnosis 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)- Primary [facility] Diagnosis Hypothyroidism, unspecified type documented [facility] Diagnosis Ruptured abdominal aortic aneurysm (AAA) [...] (AAA) (HCC)- Primary [facility]* Diagnosis Ruptured abdominal aortic aneurysm [...] part (HCC)- Primary [facility] Additional Instructions Received Lasix 80 mg in the ED, urinated several times, feeling much better, on a nasal cannula, resolution of chest discomfort. Pulmonary edema on x-ray, needs dialysis, but Lasix should temporize until Monday morning. Another dose prescribed in case she needs it later. Be aware that we do not have the capability of dialyzing patients at [facility] until Monday after 7 AM 09/16/2024.[facility] Work Phone: Instructions* Attachments The following attachments cannot be sent through Care Everywhere. * Smoking Cessation: Health Benefits: General Info (Colombian) documented in this encounterWiioHealthInstructions* Attachments The following attachments cannot be sent through Care Everywhere. * DVT (Deep Vein Thrombosis) (Colombian) * Lung Cancer Screening: General Info (Colombian) documented in this encounterWiioHealthInstructions* Attachments The following attachments cannot be sent through Care Everywhere. * PET Scan (Colombian) * MRI: Head (Colombian) documented in this encounterWiioHealthInstructions* Attachments The following attachments cannot be sent through Care Everywhere. * Factor V Leiden (Colombian) * Warfarin Safety Tips (Colombian) * Coumadin (Warfarin) - Consistent Vitamin K Diet: Care Instructions (Colombian) * Warfarin: 5 Things You Can Do to Take It Safely: Video (Colombian) * Direct Oral Anticoagulants: Non-Vitamin K Antagonist ([place]ian) documented in this encounterOhioHealthPatient's home Plan of [...] Management Goal:Pain Completed [facility]* Visit [...] Management Goal:Pain Completed [facility] Visit Details Visit Type -YARN PREPARATION SUPERVISOR Routine Discipline -Half-Way Problems Problem Start Date [...] with result of 2.3. Results called into [facility] and spoke with Pharm. Cisneros. No new orders for coumadin, patient is to continue same dose. Next scheduled INR Monday11/14/2023 documented in this encounter [facility]* Visit Details [...] 75% of instruction. [facility]* Visit [...] Management Goal:Pain Completed documented in this encounter [facility]* Visit Details Visit Type -YARN PREPARATION SUPERVISOR Routine Discipline -Half-Way Problems Problem Start Date [...] Management Goal:Pain Completed [facility]* Visit [...] and improved circulation. documented [facility]* Visit [...] of care note* Visit Details Visit Type -SLOOP CAPTAIN Routine Visi t Discipline -Physical Therapy Problems [...] intervention at next visit: Next visit with SLOOP CAPTAIN to continue improving strength and balance in order to maximize safety with ambulation and functional transfers. Home Exercise Program Problem:Home Exercise Program Goal:Home Exercise Program Completed Patient reports: good understanding of HEP Clinician taught: patient Clinician instructed on: SLOOP CAPTAIN provides skilled instruct to perform standing therex at FWW for support including marching, hip flexion, hs curls, and, DF/PF 10x each in order to increase strength in weight bearing, progress towards LTGs, and demo increased ease with ambulation. Pt required several seated rest break due to quickly becoming fatigued and dizzy. SLOOP CAPTAIN monitored BP with readings all reamaining WNL at 124/70 and 106/67. Pt reports thats too low for me. SLOOP CAPTAIN provides skilled instruct to perform seated therex [...] falls Clinician taught: patient Clinician instructed on: SLOOP CAPTAIN provides skilled instruct to perform various transfers as outlined in transfers log requiring cues for appropriate technique and sequencing to maximize safety and to facilitate improved overall independence with ADLs. SLOOP CAPTAIN provides skilled instruct to ambulate with FWW with SLOOP CAPTAIN CGA during - provides cues/education to improve overall gait sequencing/pattern to maximize safety and decrease fall risk in order to progress independence towards STGs/LTGs. SLOOP CAPTAIN provides skilled instruct to ascend/descend 7 stairs this date with B UE assist on HR and noUE assist on AD for support with step to pattern and CGA. Patient/caregiver is able to teach back 100% of instruction. documented [facility] this [facility]* Visit Details [...] 80% of instruction. documented in this encounter [facility]* Visit Details Visit Type -SLOOP CAPTAIN Routine Visi t Discipline -Physical Therapy Problems [...] intervention at next visit: Next visit with SLOOP CAPTAIN to continue improving strength and balance in order to maximize safety with ambulation and functional transfers. Home Exercise Program Problem:Home Exercise Program Goal:Home Exercise Program Completed Patient reports: good understanding of HEP Clinician taught: patient Clinician instructed on: SLOOP CAPTAIN provides skilled instruct to perform standing therex at FWW for support including marching, hip flexion, hs curls, and, DF/PF 10x each in order to increase strength in weight bearing, progress towards LTGs, and demo increased ease with ambulation. Pt required several seated rest break due to quickly becoming fatigued and dizzy. SLOOP CAPTAIN monitored BP with readings all reamaining WNL at 124/70 and 106/67. Pt reports thats too low for me. SLOOP CAPTAIN provides skilled instruct to perform seated therex [...] falls Clinician taught: patient Clinician instructed on: SLOOP CAPTAIN provides skilled instruct to perform various transfers as outlined in transfers log requiring cues for appropriate technique and sequencing to maximize safety and to facilitate improved overall independence with ADLs. SLOOP CAPTAIN provides skilled instruct to ambulate with FWW with SLOOP CAPTAIN CGA during - provides cues/education to improve overall gait sequencing/pattern to maximize safety and decrease fall risk in order to progress independence towards STGs/LTGs. SLOOP CAPTAIN provides skilled instruct to ascend/descend 7 stairs this date with B UE assist on HR and noUE assist on AD for support with step to pattern and CGA. Patient/caregiver is able to teach back 100% of instruction. documented [facility] this encounter [facility]* Visit Details Visit Type -YARN PREPARATION SUPERVISOR Routine Discipline -Half-Way Problems Problem Start Date [...] of care note* Visit Details Visit Type -SLOOP CAPTAIN Routine Visi t Discipline -Physical Therapy Problems [...] intervention at next visit: Next visit with SLOOP CAPTAIN to continue improving strength and balance in order to maximize safety with ambulation and functional transfers. Home Exercise Program Problem:Home Exercise Program Goal:Home Exercise Program Completed Patient reports: fair compliance Clinician taught: patient Clinician instructed on: SLOOP CAPTAIN provides skilled instruct to perform seated therex [...] falls Clinician taught: patient Clinician instructed on: SLOOP CAPTAIN provides skilled instruct to ascend/descend 7 stairs this date with B UE assist on HR and noUE assist on AD for support with step to pattern and CGA for safety. SLOOP CAPTAIN provides skilled instruct to perform STS transfers requiring VC for proper hand placement to rise and lower self from surface safely and for controlled descent upon sitting to ensure safety. Patient uses BUE to rise and lower self and utilizes FWW upon standing for support with good immediate standing balance displayed - patient achieve stand on first attempt 100% of time this date. SLOOP CAPTAIN provides skilled instruct to ambulate with FWW with SLOOP CAPTAIN CGA during - provides cues/education to improve [...] of care note* Visit Details Visit Type -SLOOP CAPTAIN Routine Visi t Discipline -Physical Therapy Problems [...] intervention at next visit: Next visit with SLOOP CAPTAIN to continue improving strength and balance in order to maximize safety with ambulation and functional transfers. documented in this encounter [facility]* Visit Details [...] 90% of instruction. documented in this encounter [facility]* Visit Details [...] of care note* Visit Details Visit Type -SLOOP CAPTAIN Routine Visi t Discipline -Physical Therapy Problems [...] intervention at next visit: Next visit with SLOOP CAPTAIN to continue improving strength and balance in order to maximize safety with ambulation and functional transfers. Home Exercise Program Problem:Home Exercise Program Goal:Home Exercise Program Completed Patient reports: fair compliance Clinician taught: patient Clinician instructed on: SLOOP CAPTAIN provides skilled instruct to perform standing therex at FWW for support including marching, hip flexion, hs curls, DF/PF, and mini squats 10x each in order to increase strength in weight bearing, progress towards LTGs, and demo increased ease with ambulation. Pt required several seated rest breaks between each exericse and reports my back hurts or im lightheaded. SLOOP CAPTAIN attempted to encourage pt to stand for prolonged time and pt declined. Patient/caregiver is able to teach back 100% of instruction. Instruct Mobility Problem:Mobility Goal:Mobility Completed Patient reports: no falls Clinician taught: patient Clinician instructed on: SLOOP CAPTAIN provides skilled instruct to ascend/descend 7 stairs this date with one UE assist on HR and no UE assist on AD for support with step to pattern and SBA. SLOOP CAPTAIN provides skilled instruct to ambulate 30ft 2x with FWW with SLOOP CAPTAIN SBA during - provides cues/education to improve overall gait sequencing/pattern to maximize safety and decrease fall risk in order to progress independence towards STGs/LTGs. Pt declined to amb further distances at a time and reports my back hurts. Pt will be obtaining a SPC to trial soon. SLOOP CAPTAIN provides skilled instruct to perform various transfers as outlined in transfers log requiring cues for appropriate technique and sequencing to maximize safety and to facilitate improved overall independence with ADLs. Patient/caregiver is able to teach back 100% of instruction. documented in this encounter [facility] of care [facility]* Visit [...] 90% of instruction. documented in this encounter [facility]* Visit Details [...] 75% of instruction. documented in this encounter [facility]* Visit Details [...] of care note* Visit Details Visit Type -SLOOP CAPTAIN Routine Visi t Discipline -Physical Therapy Problems [...] intervention at next visit: Next visit with SLOOP CAPTAIN to continue improving strength and balance in order to maximize safety with ambulation and functional transfers. Home Exercise Program Problem:Home Exercise Program Goal:Home Exercise Program Completed Patient reports: fair compliance Clinician taught: patient Clinician instructed on: SLOOP CAPTAIN provides skilled instruct to perform seated therex [...] falls Clinician taught: patient Clinician instructed on: SLOOP CAPTAIN provides skilled instruct to ascend/descend 7 stairs this date with one UE assist on HR and no UE assist on AD for support with step to pattern and SBA. SLOOP CAPTAIN provides skilled instruct to perform consecutive STS [...] first attempt 100% of time this date. SLOOP CAPTAIN provides skilled instruct to ambulate with FWW with SLOOP CAPTAIN SBA during - provides cues/education to improve overall gait sequencing/pattern to maximize safety and decrease fall risk in order to progress independence towards STGs/LTGs. Pt reports she has a SPC coming today. Patient/caregiver is able to teach back 100% of instruction. [facility] Visit Details Visit Type -YARN PREPARATION SUPERVISOR HH Routine Discipline -Half-Way Problems Problem Start [...] Management Goal:Pain Completed documented in this encounter [facility]* Visit Details [...] the 5# weights. documented in this encounter [facility]* Visit Details Visit Type -SLOOP CAPTAIN Routine Visi t Discipline -Physical Therapy Problems [...] intervention at next visit: Next visit with SLOOP CAPTAIN to continue improving strength and balance in order to maximize safety with ambulation and functional transfers. Home Exercise Program Problem:Home Exercise Program Goal:Home Exercise Program Completed Patient reports: fair compliance Clinician taught: patient Clinician instructed on: SLOOP CAPTAIN provides skilled instruct to perform seated therex [...] falls Clinician taught: patient Clinician instructed on: SLOOP CAPTAIN provides skilled instruct to ascend/descend 7 stairs this date with B UE assist on HR and noUE assist on AD for support with step to pattern and CGA for safety. SLOOP CAPTAIN provides skilled instruct to perform STS transfers requiring VC for proper hand placement to rise and lower self from surface safely and for controlled descent upon sitting to ensure safety. Patient uses BUE to rise and lower self and utilizes FWW upon standing for support with good immediate standing balance displayed - patient achieve stand on first attempt 100% of time this date. SLOOP CAPTAIN provides skilled instruct to ambulate with FWW with SLOOP CAPTAIN CGA during - provides cues/education to improve overall gait sequencing/pattern to maximize safety and decrease fall risk in order to progress independence towards STGs/LTGs. Pt unable to amb further distances at a time due to becoming light headed while up. Patient/caregiver is able to teach back 100% of instruction. documented [facility] this encounter [facility] Visit Details Visit Type -SLOOP CAPTAIN Routine Visi t Discipline -Physical Therapy Problems [...] intervention at next visit: Next visit with SLOOP CAPTAIN to continue improving strength and balance in order to maximize safety with ambulation and functional transfers. Home Exercise Program Problem:Home Exercise Program Goal:Home Exercise Program Completed Patient reports: fair compliance Clinician taught: patient Clinician instructed on: SLOOP CAPTAIN provides skilled instruct to perform standing therex at FWW for support including marching, hip flexion, hs curls, DF/PF, and mini squats 10x each in order to increase strength in weight bearing, progress towards LTGs, and demo increased ease with ambulation. Pt required several seated rest breaks between each exericse and reports my back hurts or im lightheaded. SLOOP CAPTAIN attempted to encourage pt to stand for prolonged time and pt declined. Patient/caregiver is able to teach back 100% of instruction. Instruct Mobility Problem:Mobility Goal:Mobility Completed Patient reports: no falls Clinician taught: patient Clinician instructed on: SLOOP CAPTAIN provides skilled instruct to ascend/descend 7 stairs this date with one UE assist on HR and no UE assist on AD for support with step to pattern and SBA. SLOOP CAPTAIN provides skilled instruct to ambulate 30ft 2x with FWW with SLOOP CAPTAIN SBA during - provides cues/education to improve overall gait sequencing/pattern to maximize safety and decrease fall risk in order to progress independence towards STGs/LTGs. Pt declined to amb further distances at a time and reports my back hurts. Pt will be obtaining a SPC to trial soon. SLOOP CAPTAIN provides skilled instruct to perform various transfers as outlined in transfers log requiring cues for appropriate technique and sequencing to maximize safety and to facilitate improved overall independence with ADLs. Patient/caregiver is able to teach back 100% of instruction. documented [facility] this encounter [facility] Visit Details Visit Type -SLOOP CAPTAIN Routine Visi t Discipline -Physical Therapy Problems [...] intervention at next visit: Next visit with SLOOP CAPTAIN to continue improving strength and balance in order to maximize safety with ambulation and functional transfers. documented in this encounter [facility]* Visit Details Visit Type -SLOOP CAPTAIN Routine Visi t Discipline -Physical Therapy Problems [...] compliance Clinician taught: patient Clinician instructed on: SLOOP CAPTAIN provided extensive education on importance of compliance with HEP and purpose of completing daily in oder to facilitate strength, balance, and endurance in order to return to PLOF. Pt verbalized fair understanding. Patient/caregiver is able to teach back 100% of instruction. Instruct Mobility Problem:Mobility Goal:Mobility Completed Patient reports: no falls Clinician taught: patient Clinician instructed on: SLOOP CAPTAIN provides skilled instruct to ascend/descend 7 stairs this date with one UE assist on HR and one UE assist on SPC for support with step to pattern and SBA. SLOOP CAPTAIN provides skilled instruct to perform various transfers as outlined in transfers log requiring cues for appropriate technique and sequencing to maximize safety and to facilitate improved overall independence with ADLs. SLOOP CAPTAIN provides skilled instruct to ambulate 30ft 3x with SPC with SLOOP CAPTAIN CGA during - provides cues/education to improve [...] in. Pt was still in bed when SLOOP CAPTAIN arrived at 11:15am. pt required cues for proper sequencing of spc today with fair+ return. SLOOP CAPTAIN provides skilled instruct to perform consecutive STS [...] instruction. documented [facility] this encounter [facility]* Visit Details [...] Fingerstick Collection Date/Frequency: 12/13/23. [facility] Instruct on special precautions and when to contact the provider. If fingerstick INR is 4 or greater, perform a peripheral lab draw. documented in this encounter [facility]* Visit Details [...] Scheduled documented in this encounter [facility]* Visit Details Visit Type -SLOOP CAPTAIN Routine Visi t Discipline -Physical Therapy Problems [...] compliance Clinician taught: patient Clinician instructed on: SLOOP CAPTAIN provided extensive education on importance of compliance with HEP and purpose of completing daily in oder to facilitate strength, balance, and endurance in order to return to PLOF. Pt verbalized fair understanding. Patient/caregiver is able to teach back 100% of instruction. Instruct Mobility Problem:Mobility Goal:Mobility Completed Patient reports: no falls Clinician taught: patient Clinician instructed on: SLOOP CAPTAIN provides skilled instruct to ascend/descend 7 stairs this date with one UE assist on HR and one UE assist on SPC for support with step to pattern and SBA. SLOOP CAPTAIN provides skilled instruct to perform various transfers as outlined in transfers log requiring cues for appropriate technique and sequencing to maximize safety and to facilitate improved overall independence with ADLs. SLOOP CAPTAIN provides skilled instruct to ambulate 30ft 3x with SPC with SLOOP CAPTAIN CGA during - provides cues/education to improve [...] in. Pt was still in bed when SLOOP CAPTAIN arrived at 11:15am. pt required cues for proper sequencing of spc today with fair+ return. SLOOP CAPTAIN provides skilled instruct to perform consecutive STS [...] instruction. documented [facility] this [facility]* Visit Details [...] instruction. documented in this encounter [facility]* Visit Details Visit Type -SLOOP CAPTAIN Routine Visi t Discipline -Physical Therapy Problems [...] intervention at next visit: Next visit with SLOOP CAPTAIN to continue improving strength and balance in order to maximize safety with ambulation and functional transfers. Home Exercise Program Problem:Home Exercise Program Goal:Home Exercise Program Completed Patient reports: poor compliance with HEP Clinician taught: patient Clinician instructed on: SLOOP CAPTAIN provides skilled instruct to peform various balance [...] AD. Clinician taught: patient Clinician instructed on: SLOOP CAPTAIN provides skilled instruct to ambulate 110ft with no AD with SLOOP CAPTAIN CGA-SBA during - provides cues/education to improve overall gait sequencing/pattern to maximize safety and decrease fall risk in order to progress independence towards STGs/LTGs. SLOOP CAPTAIN provides skilled instruct to perform consecutive STS [...] instruction. documented in this [facility] Visit Details Visit Type -SLOOP CAPTAIN Routine Visi t Discipline -Physical Therapy Problems [...] intervention at next visit: Next visit with SLOOP CAPTAIN to continue improving strength and balance in order to maximize safety with ambulation and functional transfers. Home Exercise Program Problem:Home Exercise Program Goal:Home Exercise Program Completed Patient reports: poor compliance Clinician taught: patient Clinician instructed on: SLOOP CAPTAIN provides skilled instruct to perform standing therex [...] falls Clinician taught: patient Clinician instructed on: SLOOP CAPTAIN provides skilled instruct to perform various transfers as outlined in transfers log requiring cues for appropriate technique and sequencing to maximize safety and to facilitate improved overall independence with ADLs. SLOOP CAPTAIN provides skilled instruct to ascend/descend 6 stairs this date with one UE assist on HR and no UE assist on AD for support with alternating pattern and SBA. SLOOP CAPTAIN provides skilled instruct to ambulate with no AD with SLOOP CAPTAIN SBA during - provides cues/education to improve overall gait sequencing/pattern to maximize safety and decrease fall risk in order to progress independence towards STGs/LTGs. Pt unable to amb further distances today and reports I can feel it in my legs their getting tired. Patient/caregiver is able to teach back 100% of instruction. documented [facility] this [facility] Visit Details Visit Type -SLOOP CAPTAIN Routine Visi t Discipline -Physical Therapy Problems [...] intervention at next visit: Next visit with SLOOP CAPTAIN to continue improving strength and balance in order to maximize safety with ambulation and functional transfers. Home Exercise Program Problem:Home Exercise Program Goal:Home Exercise Program Completed Patient reports: poor compliance Clinician taught: patient Clinician instructed on: SLOOP CAPTAIN reviews HEP with patient. Patient demos good recall with technique and reports poor compliance with exercise program. Education provided on importance of performing HEP daily to facilitate strength and balance to return to PLOF. Patient/caregiver is able to teach back 100% of instruction. Instruct Mobility Problem:Mobility Goal:Mobility Completed Patient reports: no falls Clinician taught: patient Clinician instructed on: SLOOP CAPTAIN provides skilled instruct to ambulate with no AD with SLOOP CAPTAIN SBA during - provides cues/education to improve overall gait sequencing/pattern to maximize safety and decrease fall risk in order to progress independence towards STGs/LTGs. Pt required cues for increased step length/height. SLOOP CAPTAIN provides skilled instruct to perform consecutive STS [...] 100% of time this date with SBA. SLOOP CAPTAIN provides skilled instruct to peform various balance [...] 100% of instruction. [facility] Visit Details Visit Type -YARN PREPARATION SUPERVISOR HH Routine Discipline -Half-Way Problems Problem Start [...] of care note* Visit Details Visit Type -SLOOP CAPTAIN Routine Visi t Discipline -Physical Therapy Problems [...] intervention at next visit: Next visit with SLOOP CAPTAIN to continue improving strength and balance in order to maximize safety with ambulation and functional transfers. Home Exercise Program Problem:Home Exercise Program Goal:Home Exercise Program Completed Patient reports: poor compliance Clinician taught: patient Clinician instructed on: SLOOP CAPTAIN provides skilled instruct to peform various balance [...] falls Clinician taught: patient Clinician instructed on: SLOOP CAPTAIN provides skilled instruct to perform consecutive STS [...] first attempt 100% of time this date. SLOOP CAPTAIN provides skilled instruct to ascend/descend 7 stairs this date with one UE assist on HR and no UE assist on AD for support with step to pattern and S. SLOOP CAPTAIN provides skilled instruct to ambulate with no AD with SLOOP CAPTAIN SBA during - provides cues/education to improve overall gait sequencing/pattern to maximize safety and decrease fall risk in order to progress independence towards STGs/LTGs. Patient/caregiver is able to teach back 100% of instruction. [facility] Visit Details Visit Type -SLOOP CAPTAIN Routine Visi t Discipline -Physical Therapy Problems [...] Post-op Care Problem:Disease-Spec [facility] Rehabilitation Goal:Post-Surgical Task already performed Instruct Mobility Problem:Mobility Goal:Mobility Completed Patient reports: ADLS with no AD Clinician taught: patient Clinician instructed on: SLOOP CAPTAIN provides skilled instructions to ambulate short functional distances in home of 3 minute bout with no AD. Pt demo slow pacing with decreased step height and stride length with SLOOP CAPTAIN providing CG/SBA during for safety. Verbal cues to improve posture, step height and stride length with 80% recall of proper energy conservation techniques such as posture, breathing and slowing pace. Fatigue reported after with some SOB and vitals WNL, noted SLOOP CAPTAIN attempted extending time bout to improve endurance however patient refused stating she needed sitting rest break. SLOOP CAPTAIN provided instructions for patient to ascend and [...] of care note* Visit Details Visit Type -SLOOP CAPTAIN Routine Visi t Discipline -Physical Therapy Problems [...] Post-op Care Problem:Disease-[facility] Rehabilitation Goal:Post-Surgical Task already performed Instruct Mobility Problem:Mobility Goal:Mobility Completed Patient reports: ADLS with no AD Clinician taught: patient Clinician instructed on: SLOOP CAPTAIN provides skilled instructions to ambulate short functional distances in home of 3 minute bout with no AD. Pt demo slow pacing with decreased step height and stride length with SLOOP CAPTAIN providing CG/SBA during for safety. Verbal cues to improve posture, step height and stride length with 80% recall of proper energy conservation techniques such as posture, breathing and slowing pace. Fatigue reported after with some SOB and vitals WNL, noted SLOOP CAPTAIN attempted extending time bout to improve endurance however patient refused stating she needed sitting rest break. SLOOP CAPTAIN provided instructions for patient to ascend and [...] 80% of instruction. [facility] Visit Details Visit Type -SLOOP CAPTAIN Routine Visi t Discipline -Physical Therapy Problems [...] intervention at next visit: Next visit with SLOOP CAPTAIN to continue improving strength and balance in order to maximize safety with ambulation and functional transfers. Home Exercise Program Problem:Home Exercise Program Goal:Home Exercise Program Completed Patient reports: poor compliance Clinician taught: patient Clinician instructed on: SLOOP CAPTAIN provides skilled instruct to peform various balance [...] falls Clinician taught: patient Clinician instructed on: SLOOP CAPTAIN provides skilled instruct to perform consecutive STS [...] first attempt 100% of time this date. SLOOP CAPTAIN provides skilled instruct to ascend/descend 7 stairs this date with one UE assist on HR and no UE assist on AD for support with step to pattern and S. SLOOP CAPTAIN provides skilled instruct to ambulate with no AD with SLOOP CAPTAIN SBA during - provides cues/education to improve overall gait sequencing/pattern to maximize safety and decrease fall risk in order to progress independence towards STGs/LTGs. Patient/caregiver is able to teach back 100% of instruction. [facility] Visit Details Visit Type -SLOOP CAPTAIN Routine Visi t Discipline -Physical Therapy Problems [...] intervention at next visit: Next visit with SLOOP CAPTAIN to continue improving strength and balance in order to maximize safety with ambulation and functional transfers. Home Exercise Program Problem:Home Exercise Program Goal:Home Exercise Program Completed Patient reports: poor compliance Clinician taught: patient Clinician instructed on: SLOOP CAPTAIN reviews HEP with patient. Patient demos good recall with technique and reports poor compliance with exercise program. Education provided on importance of performing HEP daily to facilitate strength and balance to return to PLOF. Patient/caregiver is able to teach back 100% of instruction. Instruct Mobility Problem:Mobility Goal:Mobility Completed Patient reports: no falls Clinician taught: patient Clinician instructed on: SLOOP CAPTAIN provides skilled instruct to ambulate with no AD with SLOOP CAPTAIN SBA during - provides cues/education to improve overall gait sequencing/pattern to maximize safety and decrease fall risk in order to progress independence towards STGs/LTGs. Pt required cues for increased step length/height. SLOOP CAPTAIN provides skilled instruct to perform consecutive STS [...] 100% of time this date with SBA. SLOOP CAPTAIN provides skilled instruct to peform various balance [...] 100% of instruction. documented in this encounter [facility] home Plan of care note* Visit Details Visit Type -YARN PREPARATION SUPERVISOR Routine Discipline -Half-Way Problems Problem Start Date [...] Visit Type -SN Non-[place] Agency DC Discipline -Half-Way Problems Problem [...] with result of 2.3. Results called into [facility] and spoke with Pharm. Cisneros. [...] back down because i just keep leaking. SLOOP CAPTAIN checked pt vitals and BP running slightly high, but pt states she has not had a chance to take her medication yet. SLOOP CAPTAIN notified PCP. Education provided on importance of [...] through progressive interventions/education [facility] Actions Homebound Status Criteria 1: Assistive Device(s): Cane and Walker Needs assistance of at least 1 to leave home Criteria 2: Patient confined to home due to limited endurance related to major surgery/hospitalization and BP fluctuations. Type of Home: split level home [facility]* Actions Homebound Status Criteria 1: Assistive Device(s): Cane and Walker Needs assistance of at least 1 to leave home Criteria 2: Patient confined to home due to limited endurance related to major surgery/hospitalization and BP fluctuations. Type of Home: split level home [facility]* Actions Homebound Status [...] level / walkout [facility] Actions Homebound Status Criteria 1: Assistive Device(s): Cane and Walker Needs assistance of at least 1 to leave home Criteria 2: Patient confined to home due to limited endurance related to major surgery/hospitalization and BP fluctuations. Type of Home: split level home [facility]* Actions Homebound Status [...] through progressive interventions/education [facility] Actions Homebound Status [...] back down because i just keep leaking. SLOOP CAPTAIN checked pt vitals and BP running slightly high, but pt states she has not had a chance to take her medication yet. SLOOP CAPTAIN notified PCP. Education provided on importance of [...] to toes documented. [facility]* Narratives RA complete [...] Rolling Walker Narratives INR [facility]; spoke with Yenny. New coumadin [...] 12/26/23. Order for skin prep [facility] with [facility]. [facility] [...] INR result of 2.1. Result called into [facility]. No new orders received. Pt verbalizes understanding coumadin dose to remain the same. Pt reports she will be going back to work and requests to be DC from home care. Coumadin clinic made aware pt will need to be seen in office starting next week. fresh food manager made aware of pt request. Vital [...] day to rest. documented [facility] (narrative)No reason for referral information availableWOhio State Health System Work Phone: Assessments Diagnosis Lumbosacral radiculopathy - [...] Documents on File Type Date Recorded Patient Advisory Internship Expl anation Advance Directives and Livin g Will 09/14/2018 6:07 PM Documents on File Type Date Recorded Patient Advisory Internship Expl anation Advance Directives and Livin g [...] Will Yes July 23, 8:43pm Power of Rubber Covering Machine Operator Yes July 23, 2024 8:43pm Name of Medical Power of Rubber Covering Machine Operator ? July 23, 2024 8:43pm Living Will No August 14, 2024 7:33am Power of Rubber Covering Machine Operator No August 14 7:33am Living Will No July 18 11:13am Power of Rubber Covering Machine Operator Yes July 18, 2024 11:13am Name of Medical Power of Rubber Covering Machine Operator SRIRAMKAREN DRISCOLLMATY July 18, 2024 11:13am Living Will Yes July 31, 2024 6:15pm Power of Rubber Covering Machine Operator Yes July 31 6:15pm Name of Medical Power of Rubber Covering Machine Operator SRIRAM July 31, 2024 6:15pm Advance Directive Response Recorded Date/ Time Living Will Yes July 23 8:43pm Do you have a Healthcare Power of Rubber Covering Machine Operator? Yes July 23, 2024 8:43pm Name of Medical Power of Rubber Covering Machine Operator ? July 23, 2024 8:43pm Living Will No August 14, 2024 12:54pm Do you have a Healthcare Power of Rubber Covering Machine Operator? No August 14, 2024 12:54pm Living Will No July 18 11:13am Do you have a Healthcare Power of Rubber Covering Machine Operator? Yes July 18, 2024 11:13am Name of Medical Power of Rubber Covering Machine Operator SRIRAM EATON July 18, 2024 11:13am Living Will Yes July 31, 2024 6:15pm Do you have a Healthcare Power of Rubber Covering Machine Operator? Yes July 31, 2024 6:15pm Name of Medical Power of Rubber Covering Machine Operator SRIRAM July 31, 2024 6:15pm Advance Directive Response Recorded Date/ Time Living Will Yes July 23 8:43pm Do you have a Healthcare Power of Rubber Covering Machine Operator? Yes July 23, 2024 8:43pm Name of Medical Power of Rubber Covering Machine Operator ? July 23, 2024 8:43pm Living Will No August 14, 2024 12:54pm Do you have a Healthcare Power of Rubber Covering Machine Operator? No August 14, 2024 12:54pm Living Will No September 15, 2024 4:31am Do you have a Healthcare Power of Rubber Covering Machine Operator? Yes September 15, 2024 4:31am Name of Medical Power of Rubber Covering Machine Operator sriram--sister September 15, 2024 4:31am Living Will No July 18 11:13am Do you have a Healthcare Power of Rubber Covering Machine Operator? Yes July 18, 2024 11:13am Name of Medical Power of Rubber Covering Machine Operator SRIRAM ALVARES July 18, 2024 11:13am Living Will Yes July 31, 2024 6:15pm Do you have a Healthcare Power of Rubber Covering Machine Operator? Yes July 31, 2024 6:15pm Name of Medical Power of Rubber Covering Machine Operator SRIRAM July 31, 2024 6:15pm Advance Directive Response Recorded Date/ Time Living Will Yes July 23 8:43pm Do you have a Healthcare Power of Rubber Covering Machine Operator? Yes July 23, 2024 8:43pm Name of Medical Power of Rubber Covering Machine Operator ? July 23, 2024 8:43pm Living Will No August 14, 2024 12:54pm Do you have a Healthcare Power of Rubber Covering Machine Operator? No August 14, 2024 12:54pm Living Will No September 15, 2024 4:31am Do you have a Healthcare Power of Rubber Covering Machine Operator? Yes September 15, 2024 4:31am Name of Medical Power of Rubber Covering Machine Operator sriram--sister September 15, 2024 4:31am Living Will Yes July 31, 2024 6:15pm Do you have a Healthcare Power of Rubber Covering Machine Operator? Yes July 31, 2024 6:15pm Name of Medical Power of Rubber Covering Machine Operator SRIRAM July 31, 2024 6:15pm Reason for Referral Status Reason Specialty Diagnoses / Procedures Referred By Contact Referred To Contact Authorized Physical Medicin e and Rehabilitation Diagnoses Chronic left hip pain Bambi Huynh MD [address] [place] [id number] Sanjay Reyes, DO [address] [place] [address] Status Reason Specialty Diagnoses / Procedures Referred By Contact Referred To Contact Authorized Physical Therapy / Rehabilitation Diagnoses Hip pain, bilateral Bambi Huynh MD [address] [place] [phone] [facility] [address] [place] [phone] Specialty Diagnoses / Procedures Referred By Contac t Referred To Contact Radiology Diagnoses Post-menopause Procedures XR Bone Density DEXA Axial Ying Quispe, DO [address] [place] [phone] Referral ID Status Reason Start Date Expiration Date V isits Requested Visits Authorized [id number] Authorized 11/18/2021 11/18/2022 1 1 Specialty Diagnoses / Procedures Referred By Contac t Referred To Contact Radiology Diagnoses Encounter for screening mammogram for malignant neoplasm of breast Procedures Mammography Screening Jose Bilateral Ying Quispe, DO [address] [place] [phone] Referral ID Status Reason Start Date Expiration Date V isits Requested Visits Authorized [id number] Authorized 11/18/2021 11/18/2022 1 1 Specialty Diagnoses / Procedures Referred By Contac t Referred To Contact Hematology and Oncology Diagnoses Acute deep vein thrombosis (DVT) of axillary vein of left upper extremity (HCC) Ying Quispe DO [address] [place] [phone] Lita Gu MD [address] [place] [address] Referral ID Status Reason Start Date Expiration Date V isits Requested Visits Authorized [id number] Authorized 06/27/2022 06/27/2023 1 1 Specialty Diagnoses / Procedures Referred By Contac t Referred To Contact Radiology Diagnoses Acute deep vein thrombosis (DVT) of axillary vein of left upper extremity (HCC) Current smoker Cigarette smoker Screening for malignant neoplasm of respiratory organ Procedures CT Lung Cancer Screening Lita Gu MD [address] [place] [address] Referral ID Status Reason Start Date Expiration Date V isits Requested Visits Authorized [id number] New Request 09/14/2022 09/14/2023 1 1 Specialty Diagnoses / Procedures Referred By Contac t Referred To Contact Radiology Diagnoses History of deep venous thrombosis Current smoker Transaminitis Factor V Leiden mutation (HCC) Lymphadenopathy Decreased muscle strength Lung nodule seen on imaging study Procedures MR Brain With And Without Contrast Lita Gu MD [address] [place] [address] Referral ID Status Reason Start Date Expiration Date V isits Requested Visits Authorized [id number] New Request 10/18/2022 10/18/2023 1 1 Specialty Diagnoses / Procedures Referred By Contac t Referred To Contact Radiology Diagnoses History of deep venous thrombosis Current smoker Transaminitis Factor V Leiden mutation (HCC) Lymphadenopathy Decreased muscle strength Lung nodule seen on imaging study Procedures PET Tumor Imaging With CT Skull To Thigh Lita Gu MD [address] [place] [address] Referral ID Status Reason Start Date Expiration Date V isits Requested Visits Authorized [id number] New Request 10/18/2022 10/18/2023 4 4 Specialty Diagnoses / Procedures Referred By Contac t Referred To Contact Neurology Diagnoses History of deep venous thrombosis Current smoker Transaminitis Factor V Leiden mutation (HCC) Lymphadenopathy Decreased muscle strength Lung nodule seen on imaging study Lita Gu MD [address] [facility] [place] [address] [facility] [address] [facility] Medical Office Building, [address] [place] [address] Referral ID Status Reason Start Date Expiration Date Visits Requested Visits Authorized [id number] Authorized Specialty Services Required/Pat ient's Best Interest 09/27/2022 09/27/2023 1 1 Specialty Diagnoses / Procedures Referred By Contac t Referred To Contact Radiology Diagnoses History of deep venous thrombosis Lymphadenopathy Axillary lymphadenopathy Procedures CT Biopsy Lymph Node Lita Gu MD [address] [place] [address] Referral ID Status Reason Start Date Expiration Date V isits Requested Visits Authorized [id number] New Request 11/08/2022 11/08/2023 1 1 Specialty Diagnoses / Procedures Referred By Contact Referred To Contact Interventional Radiology Diagnoses History of deep venous thrombosis Lymphadenopathy Axillary lymphadenopathy Lita Gu MD [address] [place] [address] [place] [address] Referral ID Status Reason Start Date Expiration Date Visits Requested Visits Authorized [id number] Authorized Specialty Services Required/Pat ient's Best Interest 10/25/2022 10/25/2023 1 1 Specialty Diagnoses / Procedures Referred By Contact Referred To Contact Anticoagulation Monitoring Diagnoses History of deep venous thrombosis Reactive lymphadenopathy Factor V Leiden mutation (HCC) Lita Gu MD [address] [place] [address] [place] [phone] Referral ID Status Reason Start Date Expiration Date Visits Requested Visits Authorized [id number] Authorized Specialty Services Required/Pat ient's Best Interest [...] Expiration Date V isits Requested Visits Authorized [id number] Authorized 02/08/2023 02/08/2024 1 1 Specialty Diagnoses / Procedures Referred By Contac t Referred To Contact Cardiology Diagnoses Right-sided low back pain with right-sided sciatica, unspecified chronicity Procedures Segmental Doppler Lower Extremity Arterial Yfn Puckett Jr., DPM [address] [place] [address] [facility] [address] [place] [address] Referral ID Status Reason Start Date Expiration Date V isits Requested Visits Authorized [id number] Authorized 07/04/2023 07/03/2024 1 1 Specialty Diagnoses / Procedures Referred By Contac t Referred To Contact Neurosurgery Diagnoses Lumbosacral radiculopathy Yfn Puckett Jr., DPM [address] [place] [phone] Nenita Khan MD [address] [place] [phone] Referral ID Status Reason Start Date Expiration Date V isits Requested Visits Authorized [id number] Authorized 08/01/2023 07/31/2024 1 1 Specialty Diagnoses / Procedures Referred By Contac t Referred To Contact Radiology Diagnoses Lumbosacral radiculopathy Weakness of right lower extremity Paresthesias Procedures MR Lumbar Spine Without Contrast Theresa Boykin PA-C [address] [place] [phone] Referral ID Status Reason Start Date Expiration Date V isits Requested Visits Authorized [id number] New Request 08/24/2023 08/23/2024 1 1 Specialty Diagnoses / Procedures Referred By Contac t Referred To Contact Neurology Diagnoses Weakness of right lower extremity Paresthesias Theresa Boykin PA-C [address] [place] [phone] Referral ID Status Reason Start Date Expiration Date V isits Requested Visits Authorized [id number] Authorized 08/24/2023 08/23/2024 1 1 Specialty Diagnoses / Procedures Referred By Contac t Referred To Contact Cardiology Diagnoses Ruptured abdominal aortic aneurysm (AAA), unspecified part (HCC) Procedures Ultrasound renal artery duplex, complete Tylor Kruger MD [address] [facility] [address] [place] [phone] Referral ID Status Reason Start Date Expiration Date V isits Requested Visits Authorized [id number] Authorized 11/11/2023 11/10/2024 1 1 Specialty Diagnoses / Procedures Referred By Contac t Referred To Contact Home Health Services Diagnoses Hypertension, unspecified type Orthostatic hypotension TUTU (acute kidney injury) (HCC) Debility Ruptured abdominal aortic aneurysm (AAA), unspecified part (HCC) Aftercare following surgery of the circulatory system Ying Quispe DO [address] [place] [address] [phone] Referral ID Status Reason Start Date Expiration Date V isits Requested Visits Authorized [id number] Authorized 11/02/2023 11/01/2024 1 1 Scheduling Instructions Pt must make office appt any with PCP Ying Quispe DO Specialty Diagnoses / Procedures Referred By Contac t Referred To Contact Radiology Diagnoses 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) PVD (peripheral vascular disease) (HCC) Procedures CT Angiogram Abdominal Aorta With Lower Extremity Tylor Kruger MD [address] [facility] [address] [place] [address] Referral ID Status Reason Start Date Expiration Date V isits Requested Visits Authorized [id number] New Request 11/18/2023 11/17/2024 1 1 Specialty Diagnoses / Procedures Referred By Contac t Referred To Contact Wound Care Diagnoses PVD (peripheral vascular disease) (HCC) Tylor Kruger MD [address] [place] [address] [facility] [address] [place] [phone] Referral ID Status Reason Start Date Expiration Date Visits Requested Visits Authorized [id number] Authorized Specialty Services Required/Pat ient's Best Interest 11/21/2023 11/20/2024 1 1 Specialty Diagnoses / Procedures Referred By Contac t Referred To Contact Cardiology Diagnoses PVD (peripheral vascular disease) (HCC) Ischemia of toe Procedures US Doppler ankle/brachial index Abigail Estrella, DUPLICATOR PUNCH SET UP OPERATOR [address] [place] [address] [facility] [address] [place] [address] Referral ID Status Reason Start Date Expiration Date V isits Requested Visits Authorized [id number] Authorized 11/22/2023 11/21/2024 1 1 Specialty Diagnoses / Procedures Referred By Contac t Referred To Contact Cardiology Diagnoses 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) Procedures US Abdominal Aortic Aneurysm Duplex (AAA) Sarath Rey MD [address] [place] [address] Referral ID Status Reason Start Date Expiration Date V isits Requested Visits Authorized [id number] Authorized 12/26/2023 12/25/2024 1 1 Specialty Diagnoses / Procedures Referred By Contac t Referred To Contact Cardiology Diagnoses Renal insufficiency Procedures Ultrasound renal artery stenosis hypertension limited Sarath Rey MD [address] [place] [address] Referral ID Status Reason Start Date Expiration Date V isits Requested Visits Authorized [id number] Authorized 12/26/2023 12/25/2024 1 1 Specialty Diagnoses / Procedures Referred By Contac t Referred To Contact Nephrology Diagnoses Renal insufficiency Sarath Rey MD [address] [place] [address] Yisel Paiz MD [address] [place] [address] Referral ID Status Reason Start Date Expiration Date Visits Requested Visits Authorized [id number] Authorized Specialty Services Required/Pat ient's Best Interest 12/26/2023 12/25/2024 1 1 Specialty Diagnoses / Procedures Referred By Joanne mercedes Referred To Contact Radiology Diagnoses 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) Postoperative leak Procedures CT Angiogram Chest Abdomen Pelvis Sarath Rey MD [address] [place] [phone] Referral ID Status Reason Start Date Expiration Date V isits Requested Visits Authorized [id number] New Request 01/05/2024 01/04/2025 1 1 History of Present Illness * Bambi Huynh MD - 2018 8:19 AM EST [facility] Travonpradeep [address] [facility] [address] [place], [place] [address] [place] 1960 [phone] HPI: 58-year-old female with hypothyroidism, hyperlipidemia, chronic [...] understand their medications Are you taking any [id number] medications or supplements? Patient Response: OTC Multivitamins and [place] Since last being seen in this office, have you seen another healthcare provider? Patient Response: Yes. If yes, where did you see this provider? Dentist in this encounter* Bambi Huynh MD - 09/14/2018 1:22 PM EDT [facility] [address] Ganesh Arndt [address] [place] [id number] [place] 1960 [id number] HPI: 58-year-old female added to the schedule [...] appendicitis of course. Doubt focal colitis. Consider IT INFRASTRUCTURE SPECIALIST source but suspicion low forPID. Ovarian cyst [...] understand their medications Are you taking any xrlz-jgy-fbdhudl medications or supplements? Patient Response: OTC Multivitamins Since last being seen in this office, have you seen another healthcare provider? Patient Response: No documented in this encounter* Татьяна Jenkins MD - 09/15/2018 9:[address] [facility] PATIENT: Scott Obregon DATE / TIME: 09/15/18 [...] Jenkins MD - 10/12/2018 3:[address] [facility] PATIENT: Scott Obregon DATE / TIME: 10/12/18 [...] PATHOLOGY: Case Report Surgical Pathology Report Case: [id number] Authorizing Provider: Татьяна Jenkins MD Collected: 09/14/2018 10:48 PM Ordering Location: [facility] Periop Received: 09/17/2018 10:42 AM Pathologist: [...] Serial sections demonstrate a thickened appendiceal wall. Advisory Internship sections of appendix are submitted in2 cassettes. JF;lat Gross examination performed at: [facility] - [address] [place] [address] Microscopic Description Microscopic examination is performed. ASSESSMENT: The patient is a 58-year-old female status post laparoscopic appendectomy 09/14/2018 PLAN: The patient is recovering well. Follow-up as needed documented in this encounter* Mendez Roy MD - 11/07/2018 7:38 AM EDT Dictation on: 11/07/2018 7:38 AM by: MENDEZ ROY [[id number]] documented in this encounter* Leanne Gomes PTA - 04/17/2019 5:[address] [facility] OUTPATIENT REHABIL[facility]ATION DAILY TREATMENT NOTE Today's Date [...] Treatments: Physical Therapy Exercise Log - 04/17/19 1582 OTHER Precautions/Contraindications [phone] Notes Supervising PT Fuad 8 Therapeutic Exercise (63678) Intervention SciFit L2, 5 minutes Parameters PT [...] Visit: cont Leanne Gomes PTA STATE LICENSE, [id number] documented in this encounter* Oh Crockett, SLOOP CAPTAIN - 04/24/2019 1:[address] [facility] OUTPATIENT REHABILITATION DAILY TREATMENT NOTE Today's Date [...] Notes Supervising PT Fuad 8 Therapeutic Exercise (92456) Intervention SciFit L2, 5 minutes Parameters PT [...] Cont POC Oh Crockett PTA STATE LICENSE, [id number] documented in this encounter* Fuad Pisano, PT - 05/01/2019 5:[address] [facility] OUTPATIENT REHABILITATION DAILY TREATMENT NOTE Today's Date [...] Treatments: Physical Therapy Exercise Log - 05/01/19 8845 OTHER Notes Supervising PT Fuad 8 Therapeutic Exercise (54460) Intervention SciFit L2, 5 minutes Parameters PT [...] to HEP Fuad Pisano PT STATE LICENSE, [id number] documented in this encounter* Rebeca Kaur CNP - 12/06/2019 11:10 AM EDT Patient Name: [facility] Location: [place] [address] [place] [id number] Date Of : Date Of Visit: 1960 12/06/2019 MRN# Provider: [id number] Rebeca Kaur CNP Chief Complaint Patient presents [...] Gets together: Three times a week Attends mormonism service: Not on file Active member of [...] nursing note reviewed. Exam conducted with a surveyor geophysical prospecting present (Dara Meeir RT). Constitutional: General: She is not in acute distress. Appearance: Normal appearance. She is well-developed. She is not ill-appearing, toxic-appearing or diaphoretic. HENT: Head: Normocephalic and atraumatic. Right Ear: Tympanic membrane, ear canal and external ear normal. Left Ear: Tympanic membrane, ear canal and external ear normal. Mouth/Throat: Lips: [place]. Mouth: Mucous membranes are moist. Pharynx: Uvula [...] include drinking lots of fluids and taking sejy-may-vgqejpl pain medicine. You will probably feel better [...] amount of fluids you drink. Take an vqoh-uph-kkrosus pain medicine, such as acetaminophen (Tylenol), ibuprofen (Advil, Motrin),or naproxen (Aleve). Read and follow all instructions on the label. Before you use cough and cold medicines, check the label. These medicines may not be safe for youngchildren or for people with certain health problems. Be careful when taking ibvh-pgj-mvroxyk cold or flu medicines and Tylenol at [...] good. When should you call for help? [id number] anytime you think you may need emergency [...] Log into your personal health record on [email or web address].Limeade and enter K520 in the Education box to learn more about Upper Respiratory Infection (Cold): Care Instructions. Current as of: July 22, 2019 Content Version: . NovaSparks. Care instructions adapted under license by your healthcare professional. If you have questions about a medical condition or this instruction, always ask your healthcare professional. [employer]Sparks disclaims any warranty or liability for your use of this information. Coronavirus (COVID-19): Care Instructions Overview The coronavirus disease (COVID-19) is caused by a virus. Symptoms may include a fever, a cough, andshortness of breath. It mainly spreads readig-qw-waqdat through droplets from coughing and sneezing. The [...] water aren't available, use an alcohol-based hand hand decorator. Don't share personal household items. These include bedding, towels, cups and glasses, and eating utensils. Wash laundry in the warmest water allowed for the fabric type, and dry it completely.It's okay to wash other people's laundry with yours. Clean and disinfect your home every day. Use household utility service worker and disinfectant wipes or sprays. Take special care to clean things that you grab with your hands. These include doorknobs, remote controls, phones, and handles on your refrigerator and microwave. And don't forget countertops, tabletops, bathrooms, and computer keyboards. When should you call for help? [id number] anytime you think you may need emergency [...] of: October 25, 2019 Content Version: 12.5 NovaSparks. Care instructions adapted under license by your healthcare professional. If you have questions about a medical condition or this instruction, always ask your healthcare professional. [employer]ks disclaims any warranty or liability for your [...] Log into your personal health record on [email or web address].[facility] memorial hospitalProsper and enter O319 in the Education box to learn more about Learning About Benefits From Quitting Smoking. Current as of: August 08, 2019 Content Version: 12.5 [employer]Sparks. Care instructions adapted under license by your healthcare professional. If you have questions about a medical condition or this instruction, always ask your healthcare professional. [employer]ks disclaims any warranty or liability for your [...] - 12/06/2019 11:10 AM EDT Patient Name: [facility] Location: [facility] [place] [id number] Date Of : Date Of Visit: 1960 12/06/2019 MRN# Provider: [id number] Rebeca Kaur CNP Chief Complaint Patient presents [...] Gets together: Three times a week Attends mormonism service: Not on file Active member of [...] nursing note reviewed. Exam conducted with a surveyor geophysical prospecting present (Dara SINGER). Constitutional: General: She is not in acute distress. Appearance: Normal appearance. She is well-developed. She is not ill-appearing, toxic-appearing or diaphoretic. HENT: Head: Normocephalic and atraumatic. Right Ear: Tympanic membrane, ear canal and external ear normal. Left Ear: Tympanic membrane, ear canal and external ear normal. Mouth/Throat: Lips: [place]. Mouth: Mucous membranes are moist. Pharynx: Uvula [...] include drinking lots of fluids and taking gjlz-rbs-cwgktqj pain medicine. You will probably feel better [...] amount of fluids you drink. Take an hwvt-ibq-jpvwghh pain medicine, such as acetaminophen (Tylenol), ibuprofen (Advil, Motrin),or naproxen (Aleve). Read and follow all instructions on the label. Before you use cough and cold medicines, check the label. These medicines may not be safe for youngchildren or for people with certain health problems. Be careful when taking uard-epn-biofopa cold or flu medicines and Tylenol at [...] good. When should you call for help? [id number] anytime you think you may need emergency [...] Log into your personal health record on [email or web address].Limeade and enter K520 in the Education box to learn more about Upper Respiratory Infection (Cold): Care Instructions. Current as of: July 22, 2019 Content Version: 12.5 [employer]ks. Care instructions adapted under license by your healthcare professional. If you have questions about a medical condition or this instruction, always ask your healthcare professional. [employer]ks disclaims any warranty or liability for your use of this information. Coronavirus (COVID-19): Care Instructions Overview The coronavirus disease (COVID-19) is caused by a virus. Symptoms may include a fever, a cough, andshortness of breath. It mainly spreads xidhor-xq-pmaflk through droplets from coughing and sneezing. The [...] water aren't available, use an alcohol-based hand hand decorator. Don't share personal household items. These include bedding, towels, cups and glasses, and eating utensils. Wash laundry in the warmest water allowed for the fabric type, and dry it completely.It's okay to wash other people's laundry with yours. Clean and disinfect your home every day. Use household utility service worker and disinfectant wipes or sprays. Take special care to clean things that you grab with your hands. These include doorknobs, remote controls, phones, and handles on your refrigerator and microwave. And don't forget countertops, tabletops, bathrooms, and computer keyboards. When should you call for help? [id number] anytime you think you may need emergency [...] of: October 25, 2019 Content Version: 12.5 [employer]ks. Care instructions adapted under license by your healthcare professional. If you have questions about a medical condition or this instruction, always ask your healthcare professional. [employer]ks disclaims any warranty or liability for your [...] Log into your personal health record on [email or web address]://Connectloudt.Limeade and enter O319 in the Education box to learn more about Learning About Benefits From Quitting Smoking. Current as of: August 08, 2019 Content Version: 12.5 [employer]ks. Care instructions adapted under license by your healthcare professional. If you have questions about a medical condition or this instruction, always ask your healthcare professional. [employer]ks disclaims any warranty or liability for your [...] Pisano, PT - 04/08/2019 5:[address] [facility] OUTPATIENT REHABILITATION Evaluation Today's Date 04/09/2019 Patient [...] to walk 7 miles daily and goto [employer]. Now she isn't able to do any of this. 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 Previous Treatment for this condition: Injections [...] and get back to exercise Social History Jain, social, or cultural considerations to be made [...] Treatments: Physical Therapy Exercise Log - 04/09/19 4749 OTHER Notes Supervising PT Fuad 8 Therapeutic Exercise (68361) Intervention SciFit Parameters PT performed STM glutes [...] functional abilities Fuad Pisano PT STATE LICENSE, [id number] documented in this encounter* Tisha Do, SLOOP CAPTAIN - 04/22/2019 5:[address] [facility] OUTPATIENT REHABILITATION DAILY TREATMENT NOTE Today's Date [...] Treatments: Physical Therapy Exercise Log - 04/22/19 8485 OTHER Precautions/Contraindications 535-6:18 concurrent care Notes Supervising PT Fuad 8 Therapeutic Exercise (14032) Intervention SciFit L2, 5 minutes Parameters PT [...] as able. Tisha Do PTA STATE LICENSE, [id number] documented in this encounter* Bambi Huynh MD [...] She plans to attend either [facility] or [place]. documented in this encounter* Bambi Huynh MD - 01/14/2019 4:29 PM EDT [facility] [address] [place], [place] [address] Scott Obregon 1960 [id number] HPI: 58-year-old female with hypothyroidism, hyperlipidemia, bilateral [...] Gets together: Three times a week Attends mormonism service: Not on file Active member of [...] MD documented in this encounter* Tisha Do, SLOOP CAPTAIN - 04/15/2019 5:[address] [facility] OUTPATIENT REHABILITATION DAILY TREATMENT NOTE Today's Date [...] Treatments: Physical Therapy Exercise Log - 04/15/19 7873 OTHER Precautions/Contraindications 535-6:17 concurrent Notes Supervising PT Fuad 8 Therapeutic Exercise (42188) Intervention SciFit L2, 5 minutes NT Parameters [...] per POC. Tisha Do PTA STATE LICENSE, [id number] documented in this encounter* Tisha Do PTA - 04/29/2019 5:[address] [facility] OUTPATIENT REHABILITATION DAILY TREATMENT NOTE Today's Date [...] Treatments: Physical Therapy Exercise Log - 04/29/19 6495 OTHER Notes Supervising PT Fuad Mcclelland Vitals 5:35-6:25 Therapeutic Exercise (44655) Intervention SciFit L2, 5 minutes Parameters PT [...] a difference. Tisha Do PTA STATE LICENSE, [id number] documented in this encounter* Bambi Huynh MD - 03/25/2019 4:39 PM EDT [facility] [address] [place] [id number] Scott Ob[place] 1960 [id number] HPI: Return visit. Patient with hypothyroidism. Has [...] Scott Obregon Date of : 1960 Site: [facility] Provider: Bambi Huynh MD Admit Date: 09/14/2018 [...] Physician(s) Family Provider: Bambi Huynh MD, Address: [address] [place] [address] Dr [facility] [id number] Follow Up: No follow-up provider specified. Additional [...] Log into your personal health record on https://[email or web address]Limeade and enter J277 in the Education box to learn more about Learning About Appendectomy. Current as of: April 04, 2018 Content Version: 12.0 5383-8714 NovaSparks. Care instructions adapted under license by your healthcare professional. If you have questions about a medical condition or this instruction, always ask your healthcare professional. NovaSparks disclaims any warranty or liability for your use of this information. documented in this encounter Instructions * Patient Instructions* Rebeca Kaur, DUPLICATOR PUNCH SET UP OPERATOR - 12/06/2019 11:46 AM EDT Upper Respiratory [...] include drinking lots of fluids and taking yubr-rkj-zxlpbpb pain medicine. You will probably feel better [...] amount of fluids you drink. Take an zlcq-foh-ddhesnj pain medicine, such as acetaminophen (Tylenol), ibuprofen (Advil, Motrin),or naproxen (Aleve). Read and follow all instructions on the label. Before you use cough and cold medicines, check the label. These medicines may not be safe for youngchildren or for people with certain health problems. Be careful when taking esyp-aoc-csoqrti cold or flu medicines and Tylenol at [...] good. When should you call for help? [id number] anytime you think you may need emergency [...] Log into your personal health record on https://[email or web address].Limeade and enter K520 in the Education box to learn more about Upper Respiratory Infection (Cold): Care Instructions. Current as of: July 22, 2019 Content Version: 12.5 [employer]Better [employer]days. Care instructions adapted under license by your healthcare professional. If you have questions about a medical condition or this instruction, always ask your healthcare professional. NovaSparks disclaims any warranty or liability for your use of this information. Coronavirus (COVID-19): Care Instructions Overview The coronavirus disease (COVID-19) is caused by a virus. Symptoms may include a fever, a cough, andshortness of breath. It mainly spreads ehyysz-of-kyzfjv through droplets from coughing and sneezing. The [...] water aren't available, use an alcohol-based hand hand decorator. Don't share personal household items. These include bedding, towels, cups and glasses, and eating utensils. Wash laundry in the warmest water allowed for the fabric type, and dry it completely.It's okay to wash other people's laundry with yours. Clean and disinfect your home every day. Use household utility service worker and disinfectant wipes or sprays. Take special care to clean things that you grab with your hands. These include doorknobs, remote controls, phones, and handles on your refrigerator and microwave. And don't forget countertops, tabletops, bathrooms, and computer keyboards. When should you call for help? [id number] anytime you think you may need emergency [...] of: October 25, 2019 Content Version: 12.5 [employer]Sparks. Care instructions adapted under license by your healthcare professional. If you have questions about a medical condition or this instruction, always ask your healthcare professional. NovaSparks disclaims any warranty or liability for your [...] Log into your personal health record on [email or web address]://Medicalodgeshart.Limeade and enter O319 in the Education box to learn more about Learning About Benefits From Quitting Smoking. Current as of: August 08, 2019 Content Version: 12.5 NovaSparks. Care instructions adapted under license by your healthcare professional. If you have questions about a medical condition or this instruction, always ask your healthcare professional. [employer]Sparks disclaims any warranty or liability for your [...] include drinking lots of fluids and taking lrni-pro-ugwfswy pain medicine. You will probably feel better in 4 to 10 days. The doctor has checked you carefully, but problems can develop later. If you notice any problems ornew symptoms, get medical treatment right away. Follow-up care is a arugeta part of your treatment and safety. Be [...] amount of fluids you drink. Take an agvf-otc-qllyzrr pain medicine, such as acetaminophen (Tylenol), ibuprofen (Advil, Motrin),or naproxen (Aleve). Read and follow all instructions on the label. Before you use cough and cold medicines, check the label. These medicines may not be safe for youngchildren or for people with certain health problems. Be careful when taking yvyt-ykt-hwisysd cold or flu medicines and Tylenol at [...] good. When should you call for help? [id number] anytime you think you may need emergency [...] Log into your personal health record on https://Connectloudt.StreetLight [email or web address].Diassess and enter K520 in the Education box to learn more about Upper Respiratory Infection (Cold): Care Instructions. Current as of: July 22, 2019 Content Version: 12.5 NovaSparks. Care instructions adapted under license by your healthcare professional. If you have questions about a medical condition or this instruction, always ask your healthcare professional. NovaSparks disclaims any warranty or liability for your use of this information. Coronavirus (COVID-19): Care Instructions Overview The coronavirus disease (COVID-19) is caused by a virus. Symptoms may include a fever, a cough, andshortness of breath. It mainly spreads bldumx-ly-qvkapc through droplets from coughing and sneezing. The [...] water aren't available, use an alcohol-based hand hand decorator. Don't share personal household items. These include bedding, towels, cups and glasses, and eating utensils. Wash laundry in the warmest water allowed for the fabric type, and dry it completely.It's okay to wash other people's laundry with yours. Clean and disinfect your home every day. Use household utility service worker and disinfectant wipes or sprays. Take special care to clean things that you grab with your hands. These include doorknobs, remote controls, phones, and handles on your refrigerator and microwave. And don't forget countertops, tabletops, bathrooms, and computer keyboards. When should you call for help? [id number] anytime you think you may need emergency [...] of: October 25, 2019 Content Version: 12.5 NovaSparks. Care instructions adapted under license by your healthcare professional. If you have questions about a medical condition or this instruction, always ask your healthcare professional. NovaSparks disclaims any warranty or liability for your [...] Log into your personal health record on https://Connectloudt.Limeade and enter O319 in the Education box to learn more about Learning About Benefits From Quitting Smoking. Current as of: August 08, 2019 Content Version: 12.5 NovaSparks. Care instructions adapted under license by your healthcare professional. If you have questions about a medical condition or this instruction, always ask your healthcare professional. NovaSparks disclaims any warranty or liability for your [...] Reason for Visit Chief Complaint Admit Date HALFWAY LAB WORK April 17 4:00am N179 April 17, 2024 2:38pm HALFWAY LAB WORK April 24 4:00am PEG TUBE April 30, 2024 1 :29pm HALFWAY LAB WORK May 27 5:00am LAB WORK June 03, 2024 5: 00am PAD June 05, 2024 2: 56pm LAB WORK June 06, 2024 5: 10am LABWORK June 07, 2024 5 :00am LABWORK June 21, 2024 1 1:00pm HALFWAY LAB WORK June 25, 2024 5:00am weight [...] July 31 3:42pm Acute upper gastrointestinal bleeding [facility] 2024 3:42pm Anemia July 31, 2024 3:42 pm Chronic anticoagulation July 31, 2024 3:42pm Coffee ground emesis July 31, 2024 3:4 2pm Diarrhea March 5th, 2025 3:42 pm Factor V Leiden July 31, [...] 2024 11: 52am Chief Complaint Admit Date HALFWAY LAB WORK April 24 4:00am PEG TUBE April 30, 2024 1 :29pm HALFWAY LAB WORK May 27 5:00am LAB WORK June 03, 2024 5: 00am PAD June 05, 2024 2: 56pm LAB WORK June 06, 2024 5: 10am LABWORK June 07, 2024 5 :00am LABWORK June 21, 2024 1 1:00pm HALFWAY LAB WORK June 25, 2024 5:00am weight [...] July 31 3:42pm Acute upper gastrointestinal bleeding [facility] 2024 3:42pm Anemia July 31, 2024 3:42 [...] 2024 11: 52am Chief Complaint Admit Date HALFWAY LAB WORK May 27 5:00am LAB WORK June 03, 2024 5: 00am PAD June 05, 2024 2: 56pm LAB WORK June 06, 2024 5: 10am LABWORK June 07, 2024 5 :00am LABWORK June 21, 2024 1 1:00pm HALFWAY LAB WORK June 25, 2024 5:00am weight [...] July 31 3:42pm Acute upper gastrointestinal bleeding [facility] 2024 3:42pm Anemia July 31, 2024 3:42 [...] 14, 2024 11:52am Chief Complaint Admit Date HALFWAY LAB WORK May 27 5:00am LAB WORK June 03, 2024 5: 00am PAD June 05, 2024 2: 56pm LAB WORK June 06, 2024 5: 10am LABWORK June 07, 2024 5 :00am LABWORK June 21, 2024 1 1:00pm HALFWAY LAB WORK June 25, 2024 5:00am weight [...] GI BLEED August 13, 2024 10: 13am HALFWAY LAB WORK August 14, 2024 5 :00am ANASARCA, SOB August 14, 2024 11: 52am ANASARCA, SOB August 14, 2024 12: 21pm ANASARCA, SOB August 15, 2024 8:1 1am BILATERAL EFFUSION August 15, 2024 9:0 0am ANASARCA, SOB August 15, 2024 9:0 9am ANASARCA, SOB August 16, 2024 3:2 2pm ANASARCA, SOB August 17, 2024 9:1 6am HALFWAY LAB WORK August 26, 2024 4 :00am 2 units PRBC August 31, 2024 9:01 am Chief Complaint Admit Date HALFWAY LAB WORK May 27 5:00am LAB WORK June 03, 2024 5: 00am PAD June 05, 2024 2: 56pm LAB WORK June 06, 2024 5: 10am LABWORK June 07, 2024 5 :00am LABWORK June 21, 2024 1 1:00pm HALFWAY LAB WORK June 25, 2024 5:00am weight [...] GI BLEED August 13, 2024 10: 13am HALFWAY LAB WORK August 14, 2024 5 :00am ANASARCA, SOB August 14, 2024 11: 52am ANASARCA, SOB August 14, 2024 12: 21pm ANASARCA, SOB August 15, 2024 8:1 1am BILATERAL EFFUSION August 15, 2024 9:0 0am ANASARCA, SOB August 15, 2024 9:0 9am ANASARCA, SOB August 16, 2024 3:2 2pm ANASARCA, SOB August 17, 2024 9:1 6am HALFWAY LAB WORK August 22, 2024 5 :00am HALFWAY LAB WORK August 26, 2024 4 :00am LABWORK August 28, 2024 5:00 am 2 units PRBC August 31, 2024 9:01 am Chief Complaint Admit Date [facility] LAB WORK May 27 5:00am LAB WORK June 03, 2024 5: 00am PAD June 05, 2024 2: 56pm LAB WORK June 06, 2024 5: 10am LABWORK June 07, 2024 5 :00am LABWORK June 21, 2024 1 1:00pm [facility] WORK June 25, 2024 5:00am weight [...] GI BLEED August 13, 2024 10: 13am [facility] WORK March 19th, 2025 5 :00am ANASARCA, SOB August 14, 2024 11: 52am ANASARCA, SOB August 14, 2024 12: 21pm ANASARCA, SOB August 15, 2024 8:1 1am BILATERAL EFFUSION August 15, 2024 9:0 0am ANASARCA, SOB August 15, 2024 9:0 9am ANASARCA, SOB August 16, 2024 3:2 2pm ANASARCA, SOB August 17, 2024 9:1 6am [facility] WORK August 22, 2024 5 :00am [facility] WORK August 26, 2024 4 :00am LABWORK August 28, 2024 5:00 am 2 units PRBC August 31, 2024 9:01 am sob September 15, 2024 4:2 2am Chief Complaint Admit Date LABWORK June 21, 2024 1 1:00pm [facility] WORK June 25, 2024 5:00am weight [...] GI BLEED August 13, 2024 10: 13am [facility] WORK August 14, 2024 5 :00am [...] ANASARCA, SOB August 17, 2024 9:1 6am [facility] WORK August 22, 2024 5 :00am [facility] WORK August 26, 2024 4 :00am [...] July 31 3:42pm Acute upper gastrointestinal bleeding [facility] 2024 3:42pm Anemia July 31, 2024 3:42 [...] Date LABWORK June 21, 2024 1 1:00pm [facility] WORK June 25, 2024 5:00am weight [...] GI BLEED August 13, 2024 10: 13am [facility] WORK August 14, 2024 5 :00am [...] ANASARCA, SOB August 17, 2024 9:1 6am [facility] WORK August 22, 2024 5 :00am [facility] WORK August 26, 2024 4 :00am LABWORK August 28, 2024 5:00 am 2 units PRBC August 31, 2024 9:01 am LABWORK September 02, 2024 5:00 am sob September 15, 2024 4:2 2am [facility] WORK September 16, 2024 7 :45am [...] GI BLEED August 13, 2024 10: 13am [facility] LAB WORK August 14, 2024 5 :00am [...] ANASARCA, SOB August 17, 2024 9:1 6am [facility] WORK August 22, 2024 5 :00am [facility] WORK August 26, 2024 4 :00am LABWORK August 28, 2024 5:00 am 2 units PRBC August 31, 2024 9:01 am LABWORK September 02, 2024 5:00 am [facility] WORK September 09, 2024 5 :35am sob September 15, 2024 4:2 2am [facility] WORK September 16, 2024 7 :45am LABWORK September 18, 2024 5:0 0am [facility] WORK September 23, 2024 5 :00am [facility] WORK October 30, 2024 5:4 5am [facility] WORK November 04, 2024 5:0 0am [facility] WORK November 05, 2024 6: 50am PVD November 20, 2024 4:30 pm Additional Source Comments INFORMATION SOURCE (unrecogn ized section and content) DATE CREATED AUTHOR 11/16/2017 [facility] DATE CREATED AUTHOR AUTHOR'S ORGANIZ ATION 12/20/2019 [facility] DATE CREATED AUTHOR AUTHOR'S ORGANIZ ATION 10/26/2023 [facility] DATE CREATED AUTHOR AUTHOR'S ORGANIZ ATION 11/02/2023 [facility] DATE CREATED AUTHOR AUTHOR'S ORGANIZ ATION 12/25/2023 [facility] DATE CREATED AUTHOR AUTHOR'S ORGANIZ ATION 01/05/2024 [facility] DATE CREATED AUTHOR AUTHOR'S ORGANIZ ATION 05/15/2024 [facility] DATE CREATED AUTHOR AUTHOR'S ORGANIZ ATION 06/27/2024 [facility] DATE CREATED AUTHOR AUTHOR'S ORGANIZ ATION 07/21/2024 [facility] DATE CREATED AUTHOR AUTHOR'S ORGANIZ ATION 12/05/2024 [facility] Reason for Visit (unrecogniz ed section [...] Bambi Huynh MD [address] [place] [id number] [facility] [address] [place] [address] Reason Comments Cough congestion, runny no se, symptoms x 1 week Reason Comments Follow-up 6 months Reason Comments Follow-up Reason Comments Hypothyroidism needs medication ref ills/ hasn't been seen since 2019 Reason Comments Plantar Warts Possible wart right heel. She will dig out then they will grow back. Cyst Possible cyst left a rch x 1 year. Bumps are hard. Reason [...] Expiration Date Visits Re quested Visits Authorized [id number] 1 1 Reason Comments Medication Refill Reason Comments DVT New consult from Dr. Quispe Specialty Diagnoses / Procedures Referred By Contac t Referred To Contact Hematology and Oncology Diagnoses Acute deep vein thrombosis (DVT) of axillary vein of left upper extremity (HCC) Ying Quispe, [address] [place] [address] Lita Gu MD [address] [place] [address] Referral ID Status Reason Start Date Expiration Date Visits Re quested Visits Authorized [id number] Closed 06/27/2022 06/27/2023 1 1 Reason Onset [...] thrombosis Reactive lymphadenopathy Factor V Leiden mutation ([facility]) Lita Gu MD [address] [place] [address] [place] [address] Referral ID Status Reason Start Date Expiration Date Visits Requested Visits Authorized [id number] Pending Review Specialty Services Required/Pat ient's Best [...] Lumbosacral radiculopathy Yfn Puckett Jr., DPM [address] [place] [address] Nenita Khan MD [address] [address] Referral ID Status Reason Start Date Expiration Date Visits Re quested Visits Authorized [id number] Closed 08/01/2023 07/31/2024 1 1 Reason Comments Follow-up S/p EVAR, right perry l stenting Specialty Diagnoses / Procedures Referred By Rolyac t Referred To Contact Referral ID Status Reason Start Date Expiration Date Visits Re quested Visits Authorized [id number] 1 1 Specialty Diagnoses / Procedures Referred By Contact Referred To Contact Anticoagulation Monitoring Diagnoses History of deep venous thrombosis Reactive lymphadenopathy Factor V Leiden mutation (HCC) Lita Gu MD [address] [facility] [place] [address] Caruso [address] [place] [phone] Referral ID Status Reason Start Date Expiration Date V isits Requested Visits Authorized [id number] Pending Review 12/12/2022 02/26/2024 999 999 Reason Comments Follow-up 1 month hospital fol low up s/p Emergent EVAR with renal stenting with Dr. Guerra Reason Onset Date Comments Medication Refill 11/20/2023 Reason Comments Wound Check Specialty Diagnoses / Procedures Referred By Contac t Referred To Contact Wound Care Diagnoses PVD (peripheral vascular disease) (HCC) Tylor Kruger MD [address] [place] [address] Op W[facility] Care [address] [place] [address] Referral ID Status Reason Start Date Expiration Date V isits Requested Visits Authorized [id number] Closed Specialty Services Required/Romi ent's Best Interest 11/21/2023 11/20/2024 1 1 Reason Onset Date Comments Medication Refill 12/06/2023 Referral ID Status Reason Start Date Expiration Date V isits Requested Visits Authorized [id number] Pending Review 12/12/2022 04/10/2025 999 999 Reason [...] PT. Karolyn BECERRA, called for transport to [facility], ETA 25 minutes. Gloria, Transfer center, called to advise that alternate transportation has been arranged. Pt updated on status of EMS arrival. JACKIE Castro, called with 90 minute ETA for [facility]. This nurse to try to turnover to [facility] ED PROVIDER NOTE [facility] NAME: Scott Obregon AGE: 58 y.o. : 1960 VISIT DATE: 09/14/2018 CSN: [id number] PCP: Bambi Huynh MD Chief Complaint Patient [...] Patient has been accepted by surgery at [facility]. Patient will be transferred in stable [...] Facility Scott Obregon to be transferred to [facility] Follow-up Information Follow-up information has [...] PT to OR PT from transfer from [place] for surgery Bed: 01 Expected date: 09/14/18 Expected time: 9:22 PM Means of arrival: Comments: TRANSFER documented in this encounter Татьяна Jenkins MD - 09/14/2018 10:26 PM EDT H&P Notes (unrecognized sect ion and content) [facility]ISTS SURGICAL HISTORY & PHYSICAL/CONSULTATION NOTE [...] year old female who was transferred from [facility] for acute appendicitis. Her primary complaint [...] Surgical history: none Social history: works as [employer] at [employer], [place] -Place of residence (home, NSF, etc): [...] July 24, 2024 Dr. Remedios Kessler , Attending Provider Active S tart: July 24, 2024 Dr. Remedios Checo , DO Other Provider Active Start : [...] Start: July 25, 2024 Dr. Remedios Kessler DO Attending Provider Active S tart: July 25, 2024 Dr. Remedios Kessler DO Other Provider [...] Start: July 26, 2024 Dr. Remedios Kessler DO Attending Provider [...] July 26, 2024 Dr. Remedios Kessler , Other Provider Active Start : July 26, 2024 Dr. Nick Gallegos , Attending Provider Active Start: July 26, 2024 [...] Start: August 16, 2024 Dr. Ciaran Rodrigez , Emergency Provider Activ e Start: August 16, [...] Start: August 17, 2024 Dr. Ciaran Rodrigez , Emergency Provider Activ e Start: August 17, [...] 31, 2024 End: August 31, 2024 Dr. iMllie Massey MD Referring Provider Active Start: August [...] Provider Active Star t: August 13, 2024 Ion Implant Machine Operator Relationship Specialty Start Date End Date Bambi Huynh MD [address] [place] [address] [address] [place] [address] PCP - PK Attributed Provider - [employer] 03/29/18 05/28/50 Ying Quispe, DO [address] [place] [address] PCP - General Family Medicine 05/12/21 Ion Implant Machine Operator Relationship Specialty Start Date End Date Ying Quispe, DO [address] [place] [address] PCP - General Family Medicine 05/12/21 Ion Implant Machine Operator Relationship Specialty Start Date End Date Ying Quispe, DO [address] [place] [address] PCP - General Family Medicine 05/12/21 Ion Implant Machine Operator Relationship Specialty Start Date End Date Ying Quispe, DO [address] [place] [address] PCP - General Family Medicine 05/12/21 Ion Implant Machine Operator Relationship Specialty Start Date End Date Ying Quispe DO [address] [place] [address] PCP - General Family Medicine 05/12/21 Ion Implant Machine Operator Relationship Specialty Start Date End Date Ying Quispe, DO [address] [place] [address] PCP - General Family Medicine 05/12/21 Ion Implant Machine Operator Relationship Specialty Start Date End Date Ying Quispe, DO [address] [place] [address] PCP - General Family Medicine 05/12/21 Ying Quispe, DO [address] [place] [address] PCP - PK Attributed Provider - [facility] 05/29/21 05/28/99 Ion Implant Machine Operator Relationship Specialty Start Date End Date Ying Quispe, DO [address] [place] [address] PCP - General Family Medicine 05/12/21 Ying Quispe, DO [address] [place] [address] PCP - PK Attributed Provider - [facility] 05/29/21 05/28/99 Ion Implant Machine Operator Relationship Specialty Start Date End Date Bambi Huynh MD PCP - General Internal Medicine 06/10/16 04/07/21 Makenzie Bajwa, EU[place] [address] PCP - General Nurse Practitioner 04/08/21 05/11/21 Ying Quispe, DO [address] [place] [address] PCP - General Family Medicine 05/12/21 Ying Quispe, DO [address] [place] [address] PCP - PK Attributed Provider - [facility] Commercial 03/29/18 08/25/21 Ying Quispe, DO [address] [place] [address] PCP - PK Attributed Provider - [facility] 05/29/21 05/28/99 Ion Implant Machine Operator Relationship Specialty Start Date End Date Ying Quispe, DO [address] [place] [address] PCP - General Family Medicine 05/12/21 BrittaneyYing, DO [address] [place] [address] PCP - PK Attributed Provider - [facility] 05/29/21 05/28/99 Codie Garcia, welder/fabricatorLithographic Proofer Apprentice 06/13/22 06/13/22 Ion Implant Machine Operator Relationship Specialty Start Date End Date Ying Quispe, DO [address] [place] [address] PCP - General Family Medicine 05/12/21 Ying Quispe, DO [address] [place] [address] PCP - PK Attributed Provider - [facility] 05/29/21 05/28/50 Ion Implant Machine Operator Relationship Specialty Start Date End Date BrittaneyYing, DO [address] [place] [address] PCP - General Family Medicine 05/12/21 Brittaney Ying Zahra, DO [address] [place] [address] PCP - PK Attributed Provider - [facility] 05/29/21 05/28/50 Ion Implant Machine Operator Relationship Specialty Start Date End Date Ying Quispe DO [address] [place] [address] PCP - General Family Medicine 05/12/21 Ying Quispe DO [address] [place] [address] PCP - PK Attributed Provider - [facility] 05/29/21 05/28/50 Ion Implant Machine Operator Relationship Specialty Start Date End Date Ying Quispe DO [address] [place] [address] PCP - General Family Medicine 05/12/21 Ying Quispe DO [address] [place] [address] PCP - KP Attributed Provider - [facility] 05/29/21 05/28/50 Ion Implant Machine Operator Relationship Specialty Start Date End Date Ying Quispe DO [address] [place] [address] PCP - General Family Medicine 05/12/21 Ying Quispe DO [address] [place] [address] PCP - PK Attributed Provider - [facility] 05/29/21 05/28/50 Ion Implant Machine Operator Relationship Specialty Start Date End Date Ying Quispe DO [address] [place] [address] PCP - General Family Medicine 05/12/21 Ynig Quispe DO [address] [place] [address] PCP - PK Attributed Provider - [facility] 05/29/21 05/28/50 Ion Implant Machine Operator Relationship Specialty Start Date End Date Kodak Quispeel ZahraDO [address] [place] [address] PCP - General Family Medicine 05/12/21 Ying Quispe DO [address] [place] [address] PCP - PK Attributed Provider - [facility] 05/29/21 05/28/50 Ion Implant Machine Operator Relationship Specialty Start Date End Date Ying Quispe DO [address] [place] [address] PCP - General Family Medicine 05/12/21 Ying Quispe DO [address] [place] [address] PCP - PK Attributed Provider - [facility] 05/29/21 05/28/50 Ion Implant Machine Operator Relationship Specialty Start Date End Date Ying Quispe DO [address] [place] [address] PCP - General Family Medicine 05/12/21 Ying Quispe DO [address] [place] [address] PCP - PK Attributed Provider - [facility] 05/29/21 05/28/50 Ion Implant Machine Operator Relationship Specialty Start Date End Date Ying Quispe DO [address] [place] [address] PCP - General Family Medicine 05/12/21 Ying Quispe DO [address] [place] [address] PCP - PK Attributed Provider - [facility] 05/29/21 05/28/50 Ion Implant Machine Operator Relationship Specialty Start Date End Date Ying Quispe DO [address] [place] [address] PCP - General Family Medicine 05/12/21 Ying Quispe DO [address] [place] [address] PCP - PK Attributed Provider - [facility] 05/29/21 05/28/50 Ion Implant Machine Operator Relationship Specialty Start Date End Date Ying Quispe DO [address] [place] [address] PCP - General Family Medicine 05/12/21 Ying Quispe DO [address] [place] [address] PCP - PK Attributed Provider - [facility] 05/29/21 05/28/50 Ion Implant Machine Operator Relationship Specialty Start Date End Date Ying Quispe DO [address] [place] [address] PCP - General Family Medicine 05/12/21 Ying Quispe DO [address] [place] [address] PCP - PK Attributed Provider - [facility] 05/29/21 05/28/50 Ion Implant Machine Operator Relationship Specialty Start Date End Date Ying Quispe DO [address] [place] [address] PCP - General Family Medicine 05/12/21 Ying Quispe DO [address] [place] [address] PCP - PK Attributed Provider - [facility] 05/29/21 05/28/50 Ion Implant Machine Operator Relationship Specialty Start Date End Date Ying Quispe DO [address] [place] [address] PCP - General Family Medicine 05/12/21 Ying Quispe DO [address] [place] [address] PCP - PK Attributed Provider - [facility] 05/29/21 05/28/50 Ion Implant Machine Operator Relationship Specialty Start Date End Date Ying Quispe DO [address] [place] [address] PCP - General Family Medicine 05/12/21 Ying Quispe DO [address] [place] [address] PCP - PK Attributed Provider - [facility] 05/29/21 05/28/50 Ion Implant Machine Operator Relationship Specialty Start Date End Date Ying Quispe DO [address] [place] [address] PCP - General Family Medicine 05/12/21 Ying Quispe DO [address] [place] [address] PCP - PK Attributed Provider - [facility] 05/29/21 05/28/50 Lita Gu MD [address] [place] [address] Consulting Physician Hematology/Oncology 04/24/23 Ion Implant Machine Operator Relationship Specialty Start Date End Date Ying Quispe DO [address] [place] [address] PCP - General Family Medicine 05/12/21 Ying Quispe DO [address] [place] [address] PCP - PK Attributed Provider - [facility] 05/29/21 05/28/50 Lita Gu MD [address] [place] [address] Consulting Physician Hematology/Oncology 04/24/23 Ion Implant Machine Operator Relationship Specialty Start Date End Date Ying Quispe DO [address] [place] [address] PCP - General Family Medicine 05/12/21 Ying Quispe DO [address] [place] [address] PCP - PK Attributed Provider - [facility] 05/29/21 05/28/50 Lita Gu MD [address] [place] [address] Consulting Physician Hematology/Oncology 04/24/23 Ion Implant Machine Operator Relationship Specialty Start Date End Date Ying Quispe DO [address] [place] [address] PCP - General Family Medicine 05/12/21 Ying Quispe DO [address] [place] [address] PCP - PK Attributed Provider - [facility] 05/29/21 05/28/50 Lita Gu MD [address] [place] [address] Consulting Physician Hematology/Oncology 04/24/23 Ion Implant Machine Operator Relationship Specialty Start Date End Date Ying Quispe DO [address] [place] [address] PCP - General Family Medicine 05/12/21 Ying Quispe DO [address] [place] [address] PCP - PK Attributed Provider - [facility] 05/29/21 05/28/50 Lita Gu MD [address] [place] [address] Consulting Physician Hematology/Oncology 04/24/23 Ion Implant Machine Operator Relationship Specialty Start Date End Date Ying Quispe DO [address] [place] [address] PCP - General Family Medicine 05/12/21 Ying Quispe DO [address] [place] [address] PCP - PK Attributed Provider - [facility] 05/29/21 05/28/50 Lita Gu MD [address] [place] [address] Consulting Physician Hematology/Oncology 04/24/23 Ion Implant Machine Operator Relationship Specialty Start Date End Date Ying Quispe DO [address] [place] [address] PCP - General Family Medicine 05/12/21 Ying Quispe DO [address] [place] [address] PCP - PK Attributed Provider - [facility] 05/29/21 05/28/50 Lita Gu MD [address] [place] [address] Consulting Physician Hematology/Oncology 04/24/23 Ion Implant Machine Operator Relationship Specialty Start Date End Date Ying Quispe DO [address] [place] [address] PCP - General Family Medicine 05/12/21 Ying Quispe DO [address] [place] [address] PCP - PK Attributed Provider - [facility] 05/29/21 05/28/50 Lita Gu MD [address] [place] [address] Consulting Physician Hematology/Oncology 04/24/23 Ion Implant Machine Operator Relationship Specialty Start Date End Date Ying Quispe DO [address] [place] [address] PCP - General Family Medicine 05/12/21 Ying Quispe DO [address] [place] [address] PCP - PK Attributed Provider - [facility] 05/29/21 05/28/50 Lita Gu MD [address] [place] [address] Consulting Physician Hematology/Oncology 04/24/23 Ion Implant Machine Operator Relationship Specialty Start Date End Date Ying Quispe DO [address] [place] [address] PCP - General Family Medicine 05/12/21 Ying Quispe DO [address] [place] [address] PCP - PK Attributed Provider - [facility] 05/29/21 05/28/50 Lita Gu MD [address] [place] [address] Consulting Physician Hematology/Oncology 04/24/23 Ion Implant Machine Operator Relationship Specialty Start Date End Date Ying Quispe DO [address] [place] [address] PCP - General Family Medicine 05/12/21 Ying Quispe DO [address] [place] [address] PCP - PK Attributed Provider - [facility] 05/29/21 05/28/50 Lita Gu MD [address] [place] [address] Consulting Physician Hematology/Oncology 04/24/23 Ion Implant Machine Operator Relationship Specialty Start Date End Date Ying Quispe DO [address] [place] [address] PCP - General Family Medicine 05/12/21 Ying Quispe DO [address] [place] [address] PCP - PK Attributed Provider - [facility] 05/29/21 05/28/50 Lita Gu MD [address] [place] [address] Consulting Physician Hematology/Oncology 04/24/23 Ion Implant Machine Operator Relationship Specialty Start Date End Date Ying Quispe DO [address] [place] [address] PCP - General Family Medicine 05/12/21 Ying Quispe DO [address] [place] [address] PCP - PK Attributed Provider - [facility] 05/29/21 05/28/50 Lita Gu MD [address] [place] [address] Consulting Physician Hematology/Oncology 04/24/23 Ion Implant Machine Operator Relationship Specialty Start Date End Date Ying Quispe DO [address] [place] [address] PCP - General Family Medicine 05/12/21 Ying Quispe DO [address] [place] [address] PCP - PK Attributed Provider - [facility] 05/29/21 05/28/50 Lita Gu MD [address] [place] [address] Consulting Physician Hematology/Oncology 04/24/23 Ion Implant Machine Operator Relationship Specialty Start Date End Date Ying Quispe DO [address] [place] [address] PCP - General Family Medicine 05/12/21 Ying Quispe DO [address] [place] [address] PCP - PK Attributed Provider - [facility] 05/29/21 05/28/50 Lita Gu MD [address] [place] [address] Consulting Physician Hematology/Oncology 04/24/23 Ion Implant Machine Operator Relationship Specialty Start Date End Date Ying Quispe DO [address] [place] [address] PCP - General Family Medicine 05/12/21 Ying Quispe DO [address] [place] [address] PCP - PK Attributed Provider - [facility] 05/29/21 05/28/50 Lita Gu MD [address] [place] [address] Consulting Physician Hematology/Oncology 04/24/23 Ion Implant Machine Operator Relationship Specialty Start Date End Date Ying Quispe DO [address] [place] [address] PCP - General Family Medicine 05/12/21 Ying Quispe DO [address] [place] [address] PCP - PK Attributed Provider - [facility] 05/29/21 05/28/50 Lita Gu MD [address] [place] [address] Consulting Physician Hematology/Oncology 04/24/23 Ion Implant Machine Operator Relationship Specialty Start Date End Date Ying Quispe DO [address] [place] [address] PCP - General Family Medicine 05/12/21 Ying Quispe DO [address] [place] [address] PCP - PK Attributed Provider - [facility] 05/29/21 05/28/50 Lita Gu MD [address] [place] [address] Consulting Physician Hematology/Oncology 04/24/23 Ion Implant Machine Operator Relationship Specialty Start Date End Date Ying Quispe DO [address] [place] [address] PCP - General Family Medicine 05/12/21 Ying Quispe DO [address] [place] [address] PCP - PK Attributed Provider - [facility] 05/29/21 05/28/50 Lita Gu MD [address] [place] [address] Consulting Physician Hematology/Oncology 04/24/23 Ion Implant Machine Operator Relationship Specialty Start Date End Date Ying Quispe DO [address] [place] [address] PCP - General Family Medicine 05/12/21 Ying Quispe DO [address] [place] [address] PCP - PK Attributed Provider - [facility] 05/29/21 05/28/50 Lita Gu MD [address] [place] [address] Consulting Physician Hematology/Oncology 04/24/23 Ion Implant Machine Operator Relationship Specialty Start Date End Date Ying Quispe DO [address] [place] [address] PCP - General Family Medicine 05/12/21 Ying Quispe DO [address] [place] [address] PCP - PK Attributed Provider - [facility] 05/29/21 05/28/50 Lita Gu MD [address] [place] [address] Consulting Physician Hematology/Oncology 04/24/23 Ion Implant Machine Operator Relationship Specialty Start Date End Date Ying Quispe DO [address] [place] [address] PCP - General Family Medicine 05/12/21 Ying Quispe DO [address] [place] [address] PCP - PK Attributed Provider - [facility] 05/29/21 05/28/50 Lita Gu MD [address] [place] [address] Consulting Physician Hematology/Oncology 04/24/23 Ion Implant Machine Operator Relationship Specialty Start Date End Date Ying Quispe DO [address] [place] [address] PCP - General Family Medicine 05/12/21 Ying Quispe DO [address] [place] [address] PCP - PK Attributed Provider - [facility] 05/29/21 05/28/50 Lita Gu MD [address] [place] [address] Consulting Physician Hematology/Oncology 04/24/23 Ion Implant Machine Operator Relationship Specialty Start Date End Date Ying Quispe DO [address] [place] [address] PCP - General Family Medicine 05/12/21 Ying Quispe DO [address] [place] [address] PCP - PK Attributed Provider - [facility] 05/29/21 05/28/50 Lita Gu MD [address] [place] [address] Consulting Physician Hematology/Oncology 04/24/23 Ion Implant Machine Operator Relationship Specialty Start Date End Date Ying Quispe DO [address] [place] [address] PCP - General Family Medicine 05/12/21 Ying Quispe DO [address] [place] [address] PCP - PK Attributed Provider - [facility] 05/29/21 05/28/50 Lita Gu MD [address] [place] [address] Consulting Physician Hematology/Oncology 04/24/23 Ion Implant Machine Operator Relationship Specialty Start Date End Date Ying Quispe DO [address] [place] [address] PCP - General Family Medicine 05/12/21 Ying Quispe DO [address] [place] [address] PCP - PK Attributed Provider - [facility] 05/29/21 05/28/50 Lita Gu MD [address] [place] [address] Consulting Physician Hematology/Oncology 04/24/23 Ion Implant Machine Operator Relationship Specialty Start Date End Date Ying Quispe DO [address] [place] [place] [address] PCP - General Family Medicine 05/12/21 Ying Quispe DO [address] [place] [address] PCP - PK Attributed Provider - [facility] 05/29/21 05/28/50 Lita Gu MD [address] [place] [address] Consulting Physician Hematology/Oncology 04/24/23 Ion Implant Machine Operator Relationship Specialty Start Date End Date Ying Quispe DO [address] [place] [address] PCP - General Family Medicine 05/12/21 Ying Quispe DO [address] [place] [address] PCP - PK Attributed Provider - [facility] 05/29/21 05/28/50 Lita Gu MD [address] [place] [address] Consulting Physician Hematology/Oncology 04/24/23 Ion Implant Machine Operator Relationship Specialty Start Date End Date Ying Quispe DO [address] [place] [address] PCP - General Family Medicine 05/12/21 Ying Quispe DO [address] [place] [address] PCP - PK Attributed Provider - [facility] 05/29/21 05/28/50 Lita Gu MD [address] [place] [address] Consulting Physician Hematology/Oncology 04/24/23 Ion Implant Machine Operator Relationship Specialty Start Date End Date Ying Quispe DO [address] [place] [address] PCP - General Family Medicine 05/12/21 Ying Quispe DO [address] [place] [address] PCP - PK Attributed Provider - [facility] 05/29/21 05/28/50 Lita Gu MD [address] [place] [address] Consulting Physician Hematology/Oncology 04/24/23 Ion Implant Machine Operator Relationship Specialty Start Date End Date Ying Quispe DO [address] [place] [address] PCP - General Family Medicine 05/12/21 Ying Quispe DO [address] [place] [address] PCP - PK Attributed Provider - [facility] 05/29/21 05/28/50 Lita Gu MD [address] [place] [address] Consulting Physician Hematology/Oncology 04/24/23 Ion Implant Machine Operator Relationship Specialty Start Date End Date Ying Quispe DO [address] [place] [address] PCP - General Family Medicine 05/12/21 Ying Quispe DO [address] [place] [address] PCP - PK Attributed Provider - [facility] 05/29/21 05/28/50 Lita Gu MD [address] [place] [address] Consulting Physician Hematology/Oncology 04/24/23 Ion Implant Machine Operator Relationship Specialty Start Date End Date Ying Quispe DO [address] [place] [address] PCP - General Family Medicine 05/12/21 Ying Quispe DO [address] [place] [address] PCP - PK Attributed Provider - [facility] 05/29/21 05/28/50 Lita Gu MD [address] [place] [address] Consulting Physician Hematology/Oncology 04/24/23 Yisel Paiz MD [address] [place] [address] Consulting Physician Nephrology 12/27/23 Ion Implant Machine Operator Relationship Specialty Start Date End Date Ying Quispe DO [address] [place] [address] PCP - General Family Medicine 05/12/21 Ying Quispe DO [address] [place] [address] PCP - PK Attributed Provider - [facility] 05/29/21 05/28/50 Lita Gu MD [address] [place] [address] Consulting Physician Hematology/Oncology 04/24/23 Yisel Paiz MD [address] [place] [address] Consulting Physician Nephrology 12/27/23 Ion Implant Machine Operator Relationship Specialty Start Date End Date Ying Quispe DO [address] [place] [address] PCP - General Family Medicine 05/12/21 Ying Quispe DO [address] [place] [address] PCP - PK Attributed Provider - [facility] 05/29/21 05/28/50 Lita Gu MD [address] [place] [address] Consulting Physician Hematology/Oncology 04/24/23 Yisel Paiz MD [address] [place] [address] Consulting Physician Nephrology 12/27/23 Ion Implant Machine Operator Relationship Specialty Start Date End Date Ying Quispe DO [address] [place] [address] PCP - General Family Medicine 05/12/21 Ying Quispe DO [address] [place] [address] PCP - PK Attributed Provider - [facility] 05/29/21 05/28/50 Lita Gu MD [address] [place] [address] Consulting Physician Hematology/Oncology 04/24/23 Yisel Paiz MD [address] [place] [address] Consulting Physician Nephrology 12/27/23 Ion Implant Machine Operator Relationship Specialty Start Date End Date Ying Quispe DO [address] [place] [place] [address] PCP - General Family Medicine 05/12/21 Ying Quispe DO [address] [place] [address] PCP - PK Attributed Provider - [facility] 05/29/21 05/28/50 Lita Gu MD [address] [place] [address] Consulting Physician Hematology/Oncology 04/24/23 Yisel Paiz MD [address] [place] [address] Consulting Physician Nephrology 12/27/23 Ion Implant Machine Operator Relationship Specialty Start Date End Date Ying Quispe DO [address] [place] [address] PCP - General Family Medicine 05/12/21 Ying Quispe DO [address] [place] [address] PCP - PK Attributed Provider - [facility] 05/29/21 05/28/50 Lita Gu MD [address] [place] [address] Consulting Physician Hematology/Oncology 04/24/23 Yisel Paiz MD [address] [place] [address] Consulting Physician Nephrology 12/27/23 Ion Implant Machine Operator Relationship Specialty Start Date End Date Ying Quispe DO [address] [place] [address] PCP - General Family Medicine 05/12/21 Ying Quispe DO [address] [place] [address] PCP - PK Attributed Provider - [facility] 05/29/21 05/28/50 Lita Gu MD [address] [place] [address] Consulting Physician Hematology/Oncology 04/24/23 Yisel Paiz MD [address] [place] [address] Consulting Physician Nephrology 12/27/23 Ion Implant Machine Operator Relationship Specialty Start Date End Date Ying Quispe DO [address] [place] [address] PCP - General Family Medicine 05/12/21 Ying Quispe DO [address] [place] [address] PCP - PK Attributed Provider - [facility] 05/29/21 05/28/50 Lita Gu MD [address] [place] [address] Consulting Physician Hematology/Oncology 04/24/23 Yisel Paiz MD [address] [place] [address] Consulting Physician Nephrology 12/27/23 Ion Implant Machine Operator Relationship Specialty Start Date End Date Ying Quispe DO [address] [place] [address] PCP - General Family Medicine 05/12/21 Ying Quispe DO [address] [place] [address] PCP - PK Attributed Provider - [facility] 05/29/21 05/28/50 Lita Gu MD [address] [place] [address] Consulting Physician Hematology/Oncology 04/24/23 Yisel Paiz MD [address] [place] [address] Consulting Physician Nephrology 12/27/23 Ion Implant Machine Operator Relationship Specialty Start Date End Date Ying Quispe DO [address] [place] [address] PCP - General Family Medicine 05/12/21 Ying Quispe DO [address] [place] [address] PCP - PK Attributed Provider - [facility] 05/29/21 05/28/50 Lita Gu MD [address] [place] [address] Consulting Physician Hematology/Oncology 04/24/23 Yisel Paiz MD [address] [place] [address] Consulting Physician Nephrology 12/27/23 Ion Implant Machine Operator Relationship Specialty Start Date End Date Ying Quispe DO [address] [place] [address] PCP - General Family Medicine 05/12/21 Ying Quispe DO [address] [place] [address] PCP - PK Attributed Provider - [facility] 05/29/21 05/28/50 Lita Gu MD [address] [place] [address] Consulting Physician Hematology/Oncology 04/24/23 Yisel Paiz MD [address] [place] [address] Consulting Physician Nephrology 12/27/23 Ion Implant Machine Operator Relationship Specialty Start Date End Date Ying Quispe DO [address] [place] [address] PCP - General Family Medicine 05/12/21 Ying Quispe DO [address] [place] [address] PCP - PK Attributed Provider - [facility] 05/29/21 05/28/50 Lita Gu MD [address] [place] [address] Consulting Physician Hematology/Oncology 04/24/23 Yisel Paiz MD [address] [place] [address] Consulting Physician Nephrology 12/27/23 Ion Implant Machine Operator Relationship Specialty Start Date End Date Ying Quispe DO [address] [place] [address] PCP - General Family Medicine 05/12/21 Ying Quispe DO [address] [place] [address] PCP - PK Attributed Provider - [facility] 05/29/21 05/28/50 Lita Gu MD [address] [place] [address] Consulting Physician Hematology/Oncology 04/24/23 Yisel Paiz MD [address] [place] [address] Consulting Physician Nephrology 12/27/23 Ion Implant Machine Operator Relationship Specialty Start Date End Date Ying Quispe DO [address] [place] [address] PCP - General Family Medicine 05/12/21 Ying Quispe DO [address] [place] [address] PCP - PK Attributed Provider - [facility] 05/29/21 05/28/50 Lita Gu MD [address] [place] [address] Consulting Physician Hematology/Oncology 04/24/23 Yisel Paiz MD [address] [place] [address] Consulting Physician Nephrology 12/27/23 Ion Implant Machine Operator Relationship Specialty Start Date End Date Ying Quispe DO [address] [place] [address] PCP - General Family Medicine 05/12/21 Ying Quispe DO [address] [place] [address] PCP - PK Attributed Provider - [facility] 05/29/21 05/28/50 Lita Gu MD [address] [place] [address] Consulting Physician Hematology/Oncology 04/24/23 Yisel Paiz MD [address] [place] [address] Consulting Physician Nephrology 12/27/23 Ion Implant Machine Operator Relationship Specialty Start Date End Date Ying Quispe DO [address] [place] [address] PCP - General Family Medicine 05/12/21 Ying Quispe DO [address] [place] [address] PCP - PK Attributed Provider - [facility] 05/29/21 05/28/50 Lita Gu MD [address] [place] [address] Consulting Physician Hematology/Oncology 04/24/23 Yisel Paiz MD [address] [place] [address] Consulting Physician Nephrology 12/27/23 Codie Garcia, welder/fabricatorLithographic Proofer Apprentice 07/02/24 Ion Implant Machine Operator Relationship Specialty Start Date End Date Ying Quispe DO [address] [place] [address] PCP - General Family Medicine 05/12/21 Ying Quispe DO [address] [place] [address] PCP - PK Attributed Provider - [facility] 05/29/21 05/28/50 Lita Gu MD [address] [place] [address] Consulting Physician Hematology/Oncology 04/24/23 Yisel Paiz MD [address] [place] [address] Consulting Physician Nephrology 12/27/23 Codie Garcia, welder/fabricatorLithographic Proofer Apprentice 07/02/24 07/03/24 Ion Implant Machine Operator Relationship Specialty Start Date End Date Ying Quispe DO [address] [place] [address] PCP - General Family Medicine 05/12/21 Ying Quispe DO [address] [place] [address] PCP - PK Attributed Provider - [facility] 05/29/21 05/28/50 Lita Gu MD [address] [place] [address] Consulting Physician Hematology/Oncology 04/24/23 Yisel Paiz MD [address] [place] [address] Consulting Physician Nephrology 12/27/23 Ion Implant Machine Operator Relationship Specialty Start Date End Date Ying Quispe DO [address] [place] [address] PCP - General Family Medicine 05/12/21 Ying Quispe DO [address] [place] [address] PCP - KP Attributed Provider - [facility] 05/29/21 05/28/50 Lita Gu MD [address] [place] [address] Consulting Physician Hematology/Oncology 04/24/23 Yisel Paiz MD [address] [place] [address] Consulting Physician Nephrology 12/27/23 Team Status: Inactive [...] Inactive Member Role Status Dates Dr. Ethan oRdriguez MD Primary Care Provider Active Start: August [...] Status: Active Member Role Status Dates Dr. Milile Massey MD Primary Care Provider Active Start: [...] July 29, 2024 Dr. Sadia Phoenix , Emergency Provider Active S tart: July 29, [...] Active S tart: August 04, 2024 Dr. Noha Avery MD Emergency Provider [...] Sta rt: August 12, 2024 Dr. Judd Gavlin DO Other Provider Active Star t: August [...] BE BASED ON THE PRIMARY CLINICAL RECORDS. [employer] [facility]. provides no warranty or guarantee of the accuracy or completeness of information in this document.
[2024-12-10 08:52] LABS: Hematocrit 29.7 % (37-47); Hemoglobin 9.2 g/dL (12.0-15.0); Immature Granulocytes Count 0.230 X10^3/uL (0.0-0.0); Mean Corp Hgb Conc 31.0 g/dL (32-36); Mean Corpuscular Volume 90.8 fL (81-99); Mean Platelet Vol. 11.6 fl (6.2-12.0); NRBC Flagged by Analyzer 0.5 % (0-5); POSITIVE DIFFERENTIAL YES; POSITIVE MORPHOLOGY YES; Platelet Count 165 K/mm3 (150-450); RBC Distribution Width CV 20.4 % (11.6-14.6); RBC Distribution Width SD 64.0 fl (35.1-43.9); Red Blood Count 3.27 M/mm3 (4.2-5.4); White Blood Count 6.1 K/mm3 (4.4-11.0)
[2024-12-10 09:06] LABS: Anion Gap 13 (5-15); BUN 46 mg/dL (4-19); BUN/Creat Ratio 28.3 RATIO (10-20); CRP 52.70 mg/L (0.0-3.0); Calcium,Total 9.5 mg/dL (7.6-11.0); Carbon Dioxide 29.9 mmol/L (21.0-32.0); Chloride 92 mmol/L (98-108); Glucose 96 mg/dL (70-99); Potassium 4.2 mmol/L (3.3-5.1)
[2024-12-10 09:53] LABS: Differential Indicated SCAN CRITERIA MET
[2024-12-10 10:00] LABS: Anisocytosis 1+; Polychromasia 2+
== END ==
LOC: OLS.SW 05:00
PROVIDERS: PCP Internal Medicine; Visit Provider Internal Medicine
DX: J81.1 Chronic pulmonary edema (principal); E43 Unspecified severe protein-calorie malnutrition; N18.6 End stage renal disease; S31.109D Unspecified open wound of abdominal wall, unspecified quadrant without penetration into peritoneal cavity, subsequent encounter; I73.9 Peripheral vascular disease, unspecified; J43.9 Emphysema, unspecified; I50.9 Heart failure, unspecified
CPT/HCPCS: 36415; 80048; 85025; 86140

== ENCOUNTER → 2024-12-12 | Outpatient (CLI) | payer OTHER, SELFPAY ==
--- NOTE | 2024-12-12 10:05 | ART_ITS ---
Reason For Study Reason For Study: PVD Procedure A bilateral lower extremity continuous wave Doppler with analog waveform analysis,segmental pressures,and ankle brachial indexes without exercise. Left Segmental Pressures Left brachial= 108mmHg. Left posterior tibial artery = 111mmHg. Left dorsalis pedis artery = 83mmHg. The left dorsalis pedis waveforms are biphasic. The left posterior tibial artery waveforms are triphasic. Right Segmental Pressures Right posterior tibial artery = 113mmHg. Right dorsalis pedis artery = 83mmHg. The right dorsalis pedis waveforms are biphasic. The right posterior tibial artery waveforms are triphasic. Indices The right ankle brachial index by the dorsalis pedis is 0.77. The right ankle brachial index by the posterior tibial artery is 1.05. The left ankle brachial index by the dorsalis pedis is 0.77. The left ankle brachial index by the posterior tibial artery is 1.03. VL/Lower Ext Art Exam w/o Exercis Interpretation Summary Right PAL 1.05, normal. Doppler/PVR waveforms of the right leg normal at rest. Left PAL 1.03, normal. Doppler/PVR waveforms of the left leg normal at rest. Ordering Physician: Marciano Contreras Referring Physician: MARCIANO CONTRERAS DPM Performed By: [facility]
== END | disposition home or self-care (01) ==
LOC: CVS 10:04
PROVIDERS: PCP Internal Medicine; Referring Provider Podiatrist; Visit Provider Podiatrist
DX: I73.89 Other specified peripheral vascular diseases (principal)
CPT/HCPCS: 93923

== ENCOUNTER 2025-01-20 11:31 | Inpatient (IN) | payer OTHER, SELFPAY ==
[2025-01-20] VITALS (25 sets, daily range): BP systolic 103–166; BP diastolic 51–129; PULSE 77–100; RESP 16–24; TEMP 36.6–38.2; O2SAT 86–100; BMI 13.9
--- NOTE | 2025-01-20 11:45 | EX.ED.DYSGE1 ---
HPI History of Present Illness Chief Complaint: Unresponsive Informant: EMS Onset/Context/Timing Onset: Today Quality: Unresponsive Location: Generalized Worsened by: Nothing Relieved by: Nothing Narrative Narrative: Patient presents with unresponsive episode that was noticed today. EMS was called because the patient was unresponsive. EMS checked the patient's blood sugar and it was 53. EMS administered 1 mg of glucagon IM. Upon arrival to the emergency department, the patient was noted to have a blood glucose of 28. Patient was unable to answer questions at that time. 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) Open abdominal wall wound Factor 5 Leiden mutation, heterozygous Failure to thrive custodial (current) use of anticoagulants Gross hematuria Retroperitoneal hematoma Constipation, unspecified Raynaud's syndrome without gangrene Hypo-osmolality and hyponatremia Hyperlipidemia, unspecified Hypothyroidism, unspecified Anemia, unspecified Need for assistance with personal care Other malaise Other abnormalities of gait and mobility Unsteadiness on feet Muscle weakness (generalized) Other symbolic dysfunctions Dysphagia, oropharyngeal phase Essential (primary) hypertension Activated protein C resistance Unspecified severe protein-calorie malnutrition Acute respiratory failure with hypoxia Emphysema, unspecified Peripheral vascular disease, unspecified Enterocolitis due to Clostridium difficile, not specified as recurrent Acute kidney failure, unspecified Leakage of aortic (bifurcation) graft (replacement), subsequent encounter Abdominal aortic aneurysm, ruptured, unspecified Home Medications ?Medication ?Instructions ?Recorded ?Last Taken ?Type aspirin 81 mg tablet,delayed 81 mg PO DAILY 03/11/24 07/23/24 History release (Adult Aspirin Regimen) atorvastatin 20 mg tablet 20 mg PO QHS 03/11/24 07/22/24 History metoprolol tartrate 25 mg tablet 25 mg PO BID 03/11/24 07/22/24 History thiamine HCl (vitamin B1) 100 mg 100 mg PO BID 04/11/24 07/23/24 History tablet cyclobenzaprine 5 mg tablet 5 mg PO Q8H PRN MUSCLE SPASMS 06/05/24 07/10/24 History acetaminophen 325 mg tablet 650 mg PO Q4H PRN fever 07/18/24 Unknown History aluminum-magnesium hydroxide 200 30 ml PO Q4H PRN GI DISTRESS 07/18/24 Unknown History mg-200 mg/5 mL oral suspension amlodipine 5 mg tablet 5 mg PO QHS 07/18/24 07/22/24 History docusate sodium 100 mg tablet 100 mg PO PRN PRN constipation 07/18/24 Unknown History guaifenesin 100 mg/5 mL oral liquid 400 mg PO TID PRN cough 07/18/24 07/14/24 History levothyroxine 200 mcg tablet 200 mcg PO DAILY 07/18/24 07/23/24 History midodrine 10 mg tablet 10 mg PO DAILY PRN for SBP lower 07/18/24 Unknown History than 110 during dialysis tx ondansetron 4 mg disintegrating 4 mg PO DAILY PRN nausea and 07/18/24 Unknown History tablet vomiting oxycodone 5 mg tablet 5 mg PO PRN PRN pain 07/18/24 07/22/24 History polyethylene glycol 3350 17 17 g PO QODAY 07/18/24 07/21/24 History gram/dose oral powder sennosides 8.6 mg-docusate sodium 1 tab-cap PO DAILY PRN constipation 07/18/24 Unknown History 50 mg tablet (Senna Plus) vitamin B complex-vitamin C-folic 1 tab PO DAILY 07/18/24 07/23/24 History acid 0.8 mg tablet (Renal Vitamin) bisacodyl 10 mg rectal suppository 10 mg AR DAILY PRN constipation 07/31/24 Unknown History glucagon HCl 1 mg solution for 1 mg IM Q20M PRN hypoglycemia 07/31/24 Unknown History injection (Glucagon (HCl) Emergency Kit) ascorbic acid (vitamin C) 500 mg 500 mg PO DAILY #0 tabs 08/13/24 Unknown Rx tablet acetaminophen 650 mg rectal 650 mg AR Q4H PRN fever or pain 08/14/24 Unknown History suppository dextrose 40 % oral gel (Glucose 10 g PO Q15M PRN hypoglycemia 08/14/24 Unknown History Gel) sodium phosphates 19 gram-7 118 ml AR DAILY PRN constipation 08/14/24 Unknown History gram/118 mL enema (Enema) cetirizine 10 mg tablet (24Hour 10 mg PO DAILY 09/15/24 Unknown History Allergy) albuterol sulfate 2.5 mg/3 mL 2.5 mg continuous nebulization Q8H 01/20/25 Unknown History (0.083 %) solution for nebulization PRN shortness of breath or wheezing esomeprazole magnesium 40 mg 40 mg PO DAILY 01/20/25 Unknown History capsule,delayed release ferrous sulfate 325 mg (65 mg 325 mg PO DAILY 01/20/25 Unknown History iron) tablet furosemide 80 mg tablet 80 mg PO DAILY edema or increased 01/20/25 Unknown History dyspnea gentamicin 0.1 % topical cream 1 applic topical DAILY LEFT TOE 01/20/25 Unknown History WOUND mirtazapine 30 mg tablet 30 mg PO QHS 01/20/25 Unknown History sertraline 50 mg tablet 50 mg PO DAILY 01/20/25 Unknown History Allergy/AdvReac Type Severity Reaction Status Date / Time iodine Allergy Intermediate Nausea Verified 01/20/25 11:40 shellfish derived Allergy Intermediate Nausea Verified 01/20/25 11:40 Social History Smoking Status: Former smoker Tobacco: How many years used: 40 alcohol intake: former substance use type: does not use ROS ROS ED Review of Systems ROS Unobtainable: due to mental status EXAM Physical Exam Const Vital Signs: 01/20/25 11:32 01/20/25 11:40 Temperature 98.7 F Temperature Source Oral Pulse Rate 77 Respiratory Rate 19 H Blood Pressure 159/98 H Blood Pressure Mean 118 Pulse Ox 100 Oxygen Delivery Method Non-Rebreather Oxygen Flow Rate (L/min) 15 Positive cachectic General Appearance ED: cachectic Nutritional Appearance: cachectic Neck supple and no JVD Resp Resp Narrative: Respiratory effort was limited. Lung sounds were diminished bilaterally. Auscultation: diminished lung sounds Cardio regular rate and regular rhythm GI non-tender and non-distended Palpation: soft Neuro CN's II-XII intact bilaterally Sensorium / Orientation: stuporous Motor Exam: general weakness MDM MDM MDM Narrative Medical decision making narrative: Differential diagnosis includes hypoglycemia, urinary tract infection, sepsis, electrolyte abnormality, dehydration, and chronic kidney disease. CBC will be obtained to assess for leukocytosis and anemia. Basic metabolic profile will be obtained to assess for electrolyte abnormality and renal function. PT with INR and PTT will be obtained to assess for coagulopathy. Serum lactate will be obtained to assess for sepsis. Urinalysis will be obtained to assess for urinary tract infection and hematuria. Chest x-ray will be obtained to assess for pneumonia or bronchitis. Blood cultures will be obtained to assess for sepsis. Urine culture will be obtained to assess for urinary tract infection. Treatment and Re-Evaluation :: Patient was given 250 cc of D10. Patient's BGT appeared to improve but then dropped again to 26. Patient was given a dose of D50. Patient remained more awake and alert. Patient denies any fevers or chills. Patient was advised of her findings. Patient was started on Rocephin. Due to the patient's chronic kidney disease and dialysis, IV fluids were withheld. Patient was advised of the need for hospitalization. Case was discussed with the hospitalist. She will admit the patient to her service. Patient understood and was agreeable with the plan. All questions were answered. Discharge Plan Triage Chief Complaint: Unresponsive ED Provider: Judd Mayfield Dx/Rx/DC Orders Clinical Impression: Sepsis, Urinary tract infection, Hypoglycemia Prescriptions: No Action cyclobenzaprine 5 mg tablet 5 mg PO Q8H PRN (Reason: MUSCLE SPASMS) acetaminophen 325 mg tablet 650 mg PO Q4H PRN (Reason: fever) guaifenesin 100 mg/5 mL liquid 400 mg PO TID PRN (Reason: cough) Renal Vitamin 0.8 mg tablet 1 tab PO DAILY polyethylene glycol 3350 17 gram/dose powder 17 g PO QODAY Rx Instructions: EVERY OTHER DAY AT BED TIME ondansetron 4 mg tablet,disintegrating 4 mg PO DAILY PRN (Reason: nausea and vomiting) docusate sodium 100 mg tablet 100 mg PO PRN PRN (Reason: constipation) midodrine 10 mg tablet 10 mg PO DAILY PRN (Reason: for SBP lower than 110 during dialysis tx) Rx Instructions: for SBP lower than 110 during dialysis tx acetaminophen 650 mg suppository 650 mg AR Q4H PRN (Reason: fever or pain) Enema 19-7 gram/118 mL enema 118 ml AR DAILY PRN (Reason: constipation) Rx Instructions: NEEDED FOR CONSTIPATION FOR 2 EPISODES IF DULCOLAX SUPP INEFFECTIVE. CALL PHYSICIAN IF NO BM X4 DAYS dextrose [Glucose Gel] 40 % gel 10 g PO Q15M PRN (Reason: hypoglycemia) Rx Instructions: until symptoms of low blood sugar are controlled cetirizine [24Hour Allergy] 10 mg tablet 10 mg PO DAILY Patient Comments: until 09/20 albuterol sulfate 2.5 mg /3 mL (0.083 %) solution for nebulization 2.5 mg continuous nebulization Q8H PRN (Reason: shortness of breath or wheezing) Patient Comments: [NO ORIGINAL SIG] esomeprazole magnesium 40 mg capsule,delayed release(DR/EC) 40 mg PO DAILY gentamicin 0.1 % cream 1 applic topical DAILY mirtazapine 30 mg tablet 30 mg PO QHS furosemide 80 mg tablet 80 mg PO DAILY ferrous sulfate 325 mg (65 mg iron) tablet 325 mg PO DAILY sertraline 50 mg tablet 50 mg PO DAILY aspirin [Adult Aspirin Regimen] 81 mg tablet,delayed release (DR/EC) 81 mg PO DAILY atorvastatin 20 mg tablet 20 mg PO QHS metoprolol tartrate 25 mg tablet 25 mg PO BID oxycodone 5 mg tablet 5 mg PO PRN PRN (Reason: pain) thiamine HCl (vitamin B1) 100 mg tablet 100 mg PO BID amlodipine 5 mg tablet 5 mg PO QHS levothyroxine 200 mcg tablet 200 mcg PO DAILY sennosides-docusate sodium [Senna Plus] 8.6-50 mg tablet 1 tab-cap PO DAILY PRN (Reason: constipation) aluminum-magnesium hydroxide 200-200 mg/5 mL suspension 30 ml PO Q4H PRN (Reason: GI DISTRESS) bisacodyl 10 mg suppository 10 mg AR DAILY PRN (Reason: constipation) glucagon HCl [Glucagon (HCl) Emergency Kit] 1 mg recon soln 1 mg IM Q20M PRN (Reason: hypoglycemia) Rx Instructions: until target blood sugar attained ascorbic acid (vitamin C) 500 mg Tablet 500 mg PO DAILY Qty: 0 0RF Primary Care Provider: Millie Massey Referrals: Millie Massey MD [Primary Care Provider] - Print Language: Swedish Disposition Disposition: Acute Care Hospital [facility]
[2025-01-20 11:52] LABS: Hematocrit 42.3 % (37-47); Hemoglobin 13.2 g/dL (12.0-15.0); Immature Granulocytes Count 0.070 X10^3/uL (0.0-0.0); Mean Corp Hgb Conc 31.2 g/dL (32-36); Mean Corpuscular Volume 91.2 fL (81-99); Mean Platelet Vol. 10.4 fl (6.2-12.0); NRBC Flagged by Analyzer 0 % (0-5); Platelet Count 161 K/mm3 (150-450); RBC Distribution Width CV 17.4 % (11.6-14.6); RBC Distribution Width SD 58.4 fl (35.1-43.9); Red Blood Count 4.64 M/mm3 (4.2-5.4); White Blood Count 10.9 K/mm3 (4.4-11.0)
[2025-01-20 12:02] LABS: Prothrombin Time (Protime)PT. 14.2 SECONDS (11.7-14.9)
[2025-01-20 12:03] LABS: Partial Thromboplast Time 40.2 Seconds (24.1-36.2)
[2025-01-20 12:24] LABS: Anion Gap 14 (5-15); BUN 52 mg/dL (4-19); BUN/Creat Ratio 40.8 RATIO (10-20); Calcium,Total 8.8 mg/dL (7.6-11.0); Carbon Dioxide 26.1 mmol/L (21.0-32.0); Chloride 95 mmol/L (98-108); Estimated Creatinine Clearance 33.86 ml/min (50-250); Glucose 139 mg/dL (70-99); Potassium 4.1 mmol/L (3.3-5.1)
[2025-01-20 12:28] LABS: Mucous, Urine 0 SEEN /hpf (<or=2+)
[2025-01-20 12:33] LABS: Color, Urine Yellow (Yellow); Glucose, Dipstick Normal (Normal); Ketone-Dipstick Negative (Negative); Leukocyte Esterase-Dipstick 500 /ul (Negative); Nitrite-Dipstick Negative (Negative); Occult Blood-Urine 250 /ul (Negative); Protein-Dipstick 30 mg/dl (Negative); Specific Gravity, Urine 1.010 (1.002-1.030); Urine Bilirubin Dipstick Negative (Negative)
--- NOTE | 2025-01-20 12:38 | RAD_ITS ---
PROCEDURE: CHEST 1 VIEW (PORTABLE) 01/20/2025 REASON FOR EXAM: DYSPNEA TECHNIQUE: Frontal view of the chest. COMPARISON: September 15, 2024 FINDINGS: There is a central access port on the right with the tip centrally located. Surgical clips are noted in the left upper quadrant. Heart size and mediastinal configuration are within normal limits. There are increased interstitial markings bilaterally with no focal consolidation. There is no pneumothorax or effusion. There is no acute bony abnormality. Aortic calcifications are noted. RAD/Chest 1 View (Portable) IMPRESSION: There are increased interstitial markings bilaterally with no focal consolidati on. This may represent mild central vascular congestion. Reading Location: [facility]
[2025-01-20 12:42] LABS: Red Blood Cells-Urine 0-5 SEEN /hpf (0-5); Squamous Epithelial Cells - UA 5-10 SEEN /hpf (5-10)
--- NOTE | 2025-01-20 13:53 | ED.RN ---
this rn given paper by registration with 's name and phone number to call for consent. when this rn calls , states you're the first person that has called me in months to update me. proceeds to tell this rn that her sister is the POA and she does not have legal papers and she is being kept from him. this rn offers to transferphone call to . declines.
--- NOTE | 2025-01-20 15:05 | ED.RN ---
1430- Angélica RT informs this rn that pts o2 sat was 86% on 2L. pt increased to 4L via NC.
--- NOTE | 2025-01-20 15:25 | NURSING ---
Pt is nonverbal at this time, and unable to complete hx.
[2025-01-20] MEDS: Ceftriaxone 2 GM in 0.9% Normal Saline (50mL MB+) 50 ML IV (15:29)
--- NOTE | 2025-01-20 15:52 | PCM.HP.STD ---
HPI - General General Date of Admission: 01/20/25 Date of Service: 01/20/25 Chief Complaint: AMS HPI Narrative SCOTT OBREGON, is a 64-year-old female history of end-stage renal disease on hemodialysis, hypothyroidism, hypertension, GERD, failure to thrive with chronic PEG who presented [facility] ED 01/20/2025 due to unresponsive episode. EMS checked patient's glucose and it was 53, she was given 1 mg of IM glucagon and subsequent glucose 28 in the ED and after D10 it was 26, patient given D50 with improvement. In the ED patient afebrile, heart rate 77, blood pressure 159/98, respiratory rate 19 and pulse ox initially 100% on nonrebreather and subsequently 86% on 4 L nasal cannula. CBC with normal blood count, BMP with a BUN of 52 and a creatinine 1.27 which seems to be at her close to baseline, lactic acid noted to be 3, UA suggestive of UTI. Chest x-ray with possible mild central vascular congestion, no focal consolidation. Patient given antibiotics for UTI and hospitalist contacted for admission. Patient evaluated at bedside, patient was limited in her answering of questions but eyes were open and occasionally would answer but subsequently would not interact, had recent glucose check of 200s. Unable to obtain further history from patient and no family at bedside. 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) Open abdominal wall wound Factor 5 Leiden mutation, heterozygous Failure to thrive assisted (current) use of anticoagulants Gross hematuria Retroperitoneal hematoma Constipation, unspecified Raynaud's syndrome without gangrene Hypo-osmolality and hyponatremia Hyperlipidemia, unspecified Hypothyroidism, unspecified Anemia, unspecified Need for assistance with personal care Other malaise Other abnormalities of gait and mobility Unsteadiness on feet Muscle weakness (generalized) Other symbolic dysfunctions Dysphagia, oropharyngeal phase Essential (primary) hypertension Activated protein C resistance Unspecified severe protein-calorie malnutrition Acute respiratory failure with hypoxia Emphysema, unspecified Peripheral vascular disease, unspecified Enterocolitis due to Clostridium difficile, not specified as recurrent Acute kidney failure, unspecified Leakage of aortic (bifurcation) graft (replacement), subsequent encounter Abdominal aortic aneurysm, ruptured, unspecified Home Medications ?Medication ?Instructions ?Recorded ?Last Taken ?Type aspirin 81 mg tablet,delayed 81 mg PO DAILY 03/11/24 07/23/24 History release (Adult Aspirin Regimen) atorvastatin 20 mg tablet 20 mg PO QHS 03/11/24 07/22/24 History metoprolol tartrate 25 mg tablet 25 mg PO BID 03/11/24 07/22/24 History thiamine HCl (vitamin B1) 100 mg 100 mg PO BID 04/11/24 07/23/24 History tablet cyclobenzaprine 5 mg tablet 5 mg PO Q8H PRN MUSCLE SPASMS 06/05/24 07/10/24 History acetaminophen 325 mg tablet 650 mg PO Q4H PRN fever 07/18/24 Unknown History aluminum-magnesium hydroxide 200 30 ml PO Q4H PRN GI DISTRESS 07/18/24 Unknown History mg-200 mg/5 mL oral suspension amlodipine 5 mg tablet 5 mg PO QHS 07/18/24 07/22/24 History docusate sodium 100 mg tablet 100 mg PO PRN PRN constipation 07/18/24 Unknown History guaifenesin 100 mg/5 mL oral liquid 400 mg PO TID PRN cough 07/18/24 07/14/24 History levothyroxine 200 mcg tablet 200 mcg PO DAILY 07/18/24 07/23/24 History midodrine 10 mg tablet 10 mg PO DAILY PRN for SBP lower 07/18/24 Unknown History than 110 during dialysis tx ondansetron 4 mg disintegrating 4 mg PO DAILY PRN nausea and 07/18/24 Unknown History tablet vomiting oxycodone 5 mg tablet 5 mg PO PRN PRN pain 07/18/24 07/22/24 History polyethylene glycol 3350 17 17 g PO QODAY 07/18/24 07/21/24 History gram/dose oral powder sennosides 8.6 mg-docusate sodium 1 tab-cap PO DAILY PRN constipation 07/18/24 Unknown History 50 mg tablet (Senna Plus) vitamin B complex-vitamin C-folic 1 tab PO DAILY 07/18/24 07/23/24 History acid 0.8 mg tablet (Renal Vitamin) bisacodyl 10 mg rectal suppository 10 mg [place] DAILY PRN constipation 07/31/24 Unknown History glucagon HCl 1 mg solution for 1 mg IM Q20M PRN hypoglycemia 07/31/24 Unknown History injection (Glucagon (HCl) Emergency Kit) ascorbic acid (vitamin C) 500 mg 500 mg PO DAILY #0 tabs 08/13/24 Unknown Rx tablet acetaminophen 650 mg rectal 650 mg AZ Q4H PRN fever or pain 08/14/24 Unknown History suppository dextrose 40 % oral gel (Glucose 10 g PO Q15M PRN hypoglycemia 08/14/24 Unknown History Gel) sodium phosphates 19 gram-7 118 ml [place] DAILY PRN constipation 08/14/24 Unknown History gram/118 mL enema (Enema) cetirizine 10 mg tablet (24Hour 10 mg PO DAILY 09/15/24 Unknown History Allergy) albuterol sulfate 2.5 mg/3 mL 2.5 mg continuous nebulization Q8H 01/20/25 Unknown History (0.083 %) solution for nebulization PRN shortness of breath or wheezing esomeprazole magnesium 40 mg 40 mg PO DAILY 01/20/25 Unknown History capsule,delayed release ferrous sulfate 325 mg (65 mg 325 mg PO DAILY 01/20/25 Unknown History iron) tablet furosemide 80 mg tablet 80 mg PO DAILY edema or increased 01/20/25 Unknown History dyspnea gentamicin 0.1 % topical cream 1 applic topical DAILY LEFT TOE 01/20/25 Unknown History WOUND mirtazapine 30 mg tablet 30 mg PO QHS 01/20/25 Unknown History sertraline 50 mg tablet 50 mg PO DAILY 01/20/25 Unknown History Allergy/AdvReac Type Severity Reaction Status Date / Time iodine Allergy Intermediate Nausea Verified 01/20/25 11:40 shellfish derived Allergy Intermediate Nausea Verified 01/20/25 11:40 Social History Smoking Status: Former smoker Tobacco: How many years used: 40 alcohol intake: former substance use type: does not use ROS ROS Narrative Unable to obtain ROS secondary to patient mental status Vital Signs Vital Signs Vital Signs: 01/20/25 11:32 01/20/25 11:40 01/20/25 11:45 Temperature 98.7 F Temperature Source Oral Pulse Rate 77 Respiratory Rate 19 H Respiratory Pattern Normal Blood Pressure 159/98 H Blood Pressure Mean 118 Pulse Ox 100 Oxygen Delivery Method Non-Rebreather Oxygen Flow Rate (L/min) 15 01/20/25 11:58 01/20/25 12:00 01/20/25 12:15 Temperature Temperature Source Pulse Rate 81 81 Respiratory Rate 20 H 20 H Respiratory Pattern Blood Pressure 160/73 H 144/129 H Blood Pressure Mean 96 134 Pulse Ox Oxygen Delivery Method Oxygen Flow Rate (L/min) 01/20/25 12:30 01/20/25 12:45 01/20/25 13:00 Temperature Temperature Source Pulse Rate 92 92 91 Respiratory Rate 19 H 20 H 24 H Respiratory Pattern Blood Pressure 166/73 H 148/70 H 142/72 H Blood Pressure Mean 100 92 93 Pulse Ox Oxygen Delivery Method Oxygen Flow Rate (L/min) 01/20/25 13:15 01/20/25 13:30 01/20/25 13:45 Temperature Temperature Source Pulse Rate 91 92 Respiratory Rate 20 H 23 H Respiratory Pattern Blood Pressure 114/71 113/51 L 106/67 Blood Pressure Mean 83 68 78 Pulse Ox Oxygen Delivery Method Oxygen Flow Rate (L/min) 01/20/25 14:00 01/20/25 14:15 01/20/25 14:30 Temperature Temperature Source Pulse Rate 90 89 Respiratory Rate 21 H 22 H Respiratory Pattern Blood Pressure 106/64 112/66 103/63 Blood Pressure Mean 77 79 76 Pulse Ox 86 Oxygen Delivery Method Oxygen Flow Rate (L/min) 01/20/25 14:38 01/20/25 14:45 01/20/25 15:00 Temperature Temperature Source Pulse Rate 87 Respiratory Rate 19 H Respiratory Pattern Blood Pressure 114/67 124/68 H Blood Pressure Mean 82 84 Pulse Ox 97 95 Oxygen Delivery Method Nasal Cannula Oxygen Flow Rate (L/min) 4 01/20/25 15:18 01/20/25 15:19 Temperature 98.6 F 98 F Temperature Source Oral Pulse Rate 87 84 Respiratory Rate 19 H 19 H Respiratory Pattern Blood Pressure 124/68 H 122/86 H Blood Pressure Mean 86 98 Pulse Ox 95 96 Oxygen Delivery Method Nasal Cannula Oxygen Flow Rate (L/min) 4 Weight Weight: 46.7 kg Body Mass Index (BMI) 13.9 Physical Exam Narrative General: Patient is awake with eyes open, intermittently answers questions, very thin HEENT: Atraumatic Eyes: Anicteric, normal conjunctiva Neck: Supple Respiratory: Clear to auscultation bilaterally, normal respiratory effort Cardiovascular: Regular rate and rhythm GI: Soft, nondistended Extremities: No edema Musculoskeletal: Patient laying still in bed, does have some mild extremity movement but will not follow commands Neuro: No overt focal neurological deficits though patient will not participate in neuroexam Skin: No rashes appreciated Psych: Selectively answers questions minimally Results Lab / Micro Data 01/20/25 11:42 01/20/25 11:42 Labs: Laboratory Results - last 24 hr 01/20/25 11:42: WBC 10.9, RBC 4.64, Hgb 13.2, Hct 42.3, MCV 91.2, MCH 28.4, MCHC 31.2 L, RDW Std Deviation 58.4 H, RDW Coeff of Monika 17.4 H, Plt Count 161, MPV 10.4, Immature Gran % (Auto) 0.600, Neut % (Auto) 81.8 H, Lymph % (Auto) 7.0 L, [place] % (Auto) 8.3, Eos % (Auto) 2.2, Baso % (Auto) 0.1, Absolute Neuts (auto) 8.9 H, Absolute Lymphs (auto) 0.76 L, Nucleated RBC % 0, PT 14.2, INR 1.1, APTT 40.2 H, Sodium 135, Potassium 4.1, Chloride 95 L, Carbon Dioxide 26.1, Anion Gap 14, BUN 52 H, Creatinine 1.27 H, Estim Creat Clear Calc 33.86 L, Est GFR (MDRD) Non-Af 48 L, BUN/Creatinine Ratio 40.8 H, Glucose 139 H, Calcium 8.8 01/20/25 11:50: Lactic Acid 3.0 H* 01/20/25 12:05: POC Glucose 26 L* 01/20/25 12:23: Urine Color Yellow, Urine Clarity Clear, Urine pH 7.0, Ur Specific [place] 1.010, Urine Protein 30 H, Urine Glucose (UA) Normal, Urine Ketones Negative, Urine Occult Blood 250 H, Urine Nitrite Negative, Urine Bilirubin Negative, Urine Urobilinogen Normal, Ur Leukocyte Esterase 500 H, Urine RBC 0-5 SEEN, Urine WBC 10-25 SEEN, Ur Squamous Epith Cells 5-10 SEEN, Urine Bacteria 2+, Urine Mucus 0 SEEN 01/20/25 13:24: POC Glucose 259 H 01/20/25 15:06: POC Glucose 243 H Imaging Radiology Impression Chest X-Ray 01/20/25 12:38 IMPRESSION: There are increased interstitial markings bilaterally with no focal consolidation. This may represent mild central vascular congestion. Reading Location: [facility] Assessment & Plan Assessment/Plan (1) Urinary tract infection: (2) Hypoglycemia: PLAN: Plan #Suspect sepsis 2/2 likely UTI -Patient with metabolic encephalopathy even after glucose improved, new oxygen requirement of 4 L nasal cannula, hypoglycemia, lactic acid of 3 with tachypnea 22 and a left shift - UA with some squamous cells but is suggestive of UTI - Culture sent - Will continue antibiotics - Patient end-stage renal disease on hemodialysis so no additional fluids given at this time especially given patient's hemodynamic stability at present - Will hold Lasix at this time, resume pending patient's stability #Hypoglycemia - Does not appear patient is diabetic, does have a BMI of 14 so unclear if this is failure to thrive or due to infection or both - Blood glucose checks scheduled - Mental status did improve some with improved glucose but still waxes and wanes and appears to have metabolic encephalopathy suspect secondary to UTI # Hypoxia - There is concern for sepsis secondary to urinary source - Chest x-ray with possible mild central vascular congestion with some increased interstitial markings but no focal consolidation - Does not appear significantly fluid overloaded - May be due to the above, will check respiratory panels to evaluate for any additional contributing etiology #ESRD on HD -Consult nephrology -Renal diet -Daily weights, I's and O's #Low BMI and PEG tube - Continue thiamine, glucose checks, dietitian consultation - Continue Remeron #Hypertension - Holding home antihypertensives for today while pending further progress and workup #Hypothyroidism -Continue Synthroid # History of PAD - Continue atorvastatin, asa #GERD -Continue PPI #DVT ppx: Heparin subcu Alice Perez MD Sepsis Attestation Sepsis Alert: Yes Sepsis Attestation: Agree w/Sepsis Date exam was performed: 01/20/25 Time exam was performed: 15:30 Possible Source of Sepsis: Genitourinary Sepsis Organ Dysfunction Criteria Present: Lactic Acid > 2 mmol/L and New/Unexplained change in mental status Supportive Findings: metabolic encephalopathy even after glucose improved, new oxygen requirement of 4 L nasal cannula, hypoglycemia, lactic acid of 3 with tachypnea 22 and a left shift Fluid Resuscitation Fluid resuscitation indicated?: Yes Fluid Resuscitation ordered: Lesser volume fluid bolus ordered Amount of fluid ordered: 0 Reason for lesser fluid bolus:: Concern for fluid overload, Renal Failure and Other (Not hypotensive, presently vitally stable) Charges/Coding Visit Charges Inpatient E&M: 17269 Init Hosp L2
[2025-01-20 15:54] LABS: Reflex Lactate? Y
--- NOTE | 2025-01-20 16:38 | NURSING ---
pt is nonverbal at this time, therefore questions were answered unknown.
[2025-01-20] MEDS: 0.9% Normal Saline (500mL Bag) 500 ML 999 ML IV (18:37)
[2025-01-20] MEDS: Dextrose 5%/0.9% NaCl 1,000 ML 50 ML IV (20:31)
[2025-01-20] MEDS: NEPRO 1,000 ML 55 ML GT (20:37)
--- NOTE | 2025-01-20 21:49 | PCM.HOSP.N ---
Hospitalist Note Patient still gets tube feeds through PEG, this information was obtained and orders entered for tube feeds, also speech consult ordered
[2025-01-20] MEDS: Heparin Injection (Vial) 5,000 UNIT/ML VIAL 5000 UNIT SC (22:50)
[2025-01-20] MEDS: Thiamine Hydrochloride 100 MG Tablet PO (22:51)
[2025-01-20] MEDS: MELATONIN 3 MG TABLET 10 MG PO (22:55)
[2025-01-20] MEDS: Senna/Docusate Sodium 1 Tablet 2 TABLET PO (22:55)
[2025-01-21] VITALS (9 sets, daily range): BP systolic 109–145; BP diastolic 52–74; PULSE 78–114; RESP 16–23; TEMP 36.4–38.6; O2SAT 98–100; BMI 14.3
[2025-01-21 06:00] LABS: Hematocrit 37.9 % (37-47); Hemoglobin 11.8 g/dL (12.0-15.0); Immature Granulocytes Count 0.060 X10^3/uL (0.0-0.0); Mean Corp Hgb Conc 31.1 g/dL (32-36); Mean Corpuscular Volume 91.5 fL (81-99); Mean Platelet Vol. 11.0 fl (6.2-12.0); NRBC Flagged by Analyzer 0 % (0-5); POSITIVE DIFFERENTIAL YES; Platelet Count 148 K/mm3 (150-450); RBC Distribution Width CV 17.6 % (11.6-14.6); RBC Distribution Width SD 58.8 fl (35.1-43.9); Red Blood Count 4.14 M/mm3 (4.2-5.4); White Blood Count 8.3 K/mm3 (4.4-11.0)
[2025-01-21 06:34] LABS: Anion Gap 15 (5-15); BUN 80 mg/dL (4-19); BUN/Creat Ratio 46.7 RATIO (10-20); Calcium,Total 8.7 mg/dL (7.6-11.0); Carbon Dioxide 24.2 mmol/L (21.0-32.0); Chloride 95 mmol/L (98-108); Estimated Creatinine Clearance 25.64 ml/min (50-250); Glucose 104 mg/dL (70-99); Potassium 4.1 mmol/L (3.3-5.1)
[2025-01-21] MEDS: 0.9% Saline Lock 10 ML Syringe IV ×2 (06:39→22:32)
--- NOTE | 2025-01-21 07:44 | NURSING ---
This RN gave am medications at 0625 01/21/25, and at 0635 pt became nauseous and vomited medication up. Zofran was given IV. PO tylenol changed to liquid via PEG tube.
[2025-01-21] MEDS: Thiamine Hydrochloride 100 MG Tablet PO ×2 (09:56→22:31)
[2025-01-21] MEDS: Aspirin E.C. 81 MG Tablet PO (09:56)
[2025-01-21] MEDS: Folic Acid/Vitamin B Comp W-C 1 Capsule 1 CAP PO (09:56)
[2025-01-21] MEDS: Heparin Injection (Vial) 5,000 UNIT/ML VIAL 5000 UNIT SC ×2 (09:56→22:30)
--- NOTE | 2025-01-21 10:26 | CASEMGMT ---
JACKIE LEMONS called WILMAR Barrow as patient is only alert to person. Per Janette, plan is for patient to return to [facility] when medically ready. Janette had no further questions or concerns. JACKIE LEMONS updated DC planning assist to send updated clinicals to [facility]. CM will continue to follow this patient and plan for a safe discharge.
--- NOTE | 2025-01-21 10:43 | CASEMGMT ---
Addendum entered by Joellen Billy 01/21/25 11:50: [facility] would like to submit for precert but can return without. JACKIE CM updated. Original Note: Discharge Planning Updates sent to [facility]. Asked if precert will be needed and if so, can pt return while they are waiting on auth. Awaiting response. Joellen Billy DC Planning Asst.
--- NOTE | 2025-01-21 10:47 | PN.HOSP_ITS ---
Subjective Subjective Doing well, no issues overnight. Blood sugars have improved with the reinitiation of her tube feeds Objective Data Objective Data Vital Signs: Vital Signs Temp Pulse Resp BP Pulse Ox O2 Del Method O2 Flow Rate 97.5 F L 95 21 H 114/52 L 100 Nasal Cannula 2 01/21/25 08:07 01/21/25 08:07 01/21/25 08:07 01/21/25 08:07 01/21/25 08:07 01/21/25 08:56 01/21/25 08:56 FiO2 98 01/21/25 05:59 Oxygen Flow Rate (L/min) 2 Oxygen Delivery Method Nasal Cannula Weight: 105 lb 9.623 oz Body Mass Index (BMI) 14.3 Intake & Output: Intake and Output for Last 24 Hours 01/20/25 01/21/25 01/22/25 03:59 03:59 03:59 Intake Total 1315 / 1315 520.83 / 520.83 Output Total 150 / 150 100 / 100 Balance 1165 / 1165 420.83 / 420.83 Lab / Micro Data 01/21/25 05:13 01/21/25 05:13 Labs: Laboratory Results - last 24 hr 01/20/25 11:42: WBC 10.9, RBC 4.64, Hgb 13.2, Hct 42.3, MCV 91.2, MCH 28.4, MCHC 31.2 L, RDW Std Deviation 58.4 H, RDW Coeff of Monika 17.4 H, Plt Count 161, MPV 10.4, Immature Gran % (Auto) 0.600, Neut % (Auto) 81.8 H, Lymph % (Auto) 7.0 L, [place] % (Auto) 8.3, Eos % (Auto) 2.2, Baso % (Auto) 0.1, Absolute Neuts (auto) 8.9 H, Absolute Lymphs (auto) 0.76 L, Nucleated RBC % 0, PT 14.2, INR 1.1, APTT 40.2 H, Sodium 135, Potassium 4.1, Chloride 95 L, Carbon Dioxide 26.1, Anion Gap 14, BUN 52 H, Creatinine 1.27 H, Estim Creat Clear Calc 33.86 L, Est GFR (MDRD) Non-Af 48 L, BUN/Creatinine Ratio 40.8 H, Glucose 139 H, Calcium 8.8 01/20/25 11:50: Lactic Acid 3.0 H* 01/20/25 12:05: POC Glucose 26 L* 01/20/25 12:23: Urine Color Yellow, Urine Clarity Clear, Urine pH 7.0, Ur Specific [place] 1.010, Urine Protein 30 H, Urine Glucose (UA) Normal, Urine Ketones Negative, Urine Occult Blood 250 H, Urine Nitrite Negative, Urine Bilirubin Negative, Urine Urobilinogen Normal, Ur Leukocyte Esterase 500 H, Urine RBC 0-5 SEEN, Urine WBC 10-25 SEEN, Ur Squamous Epith Cells 5-10 SEEN, Urine Bacteria 2+, Urine Mucus 0 SEEN 01/20/25 13:24: POC Glucose 259 H 01/20/25 15:06: POC Glucose 243 H 01/20/25 17:00: Lactic Acid 2.8 H* 01/20/25 17:01: POC Glucose 122 H 01/20/25 18:47: POC Glucose 20 L* 01/20/25 19:38: POC Glucose 21 L* 01/20/25 20:20: POC Glucose 195 H 01/20/25 21:18: POC Glucose 138 H 01/21/25 01:21: POC Glucose 143 H 01/21/25 03:37: POC Glucose 92 01/21/25 04:44: POC Glucose 68 L 01/21/25 05:13: WBC 8.3, RBC 4.14 L, Hgb 11.8 L, Hct 37.9, MCV 91.5, MCH 28.5, M CHC 31.1 L, RDW Std Deviation 58.8 H, RDW Coeff of Monika 17.6 H, Plt Count 148 L, MPV 11.0, Immature Gran % (Auto) 0.700, Neut % (Auto) 83.5 H, Lymph % (Auto) 4.4 L, [place] % (Auto) 9.2, Eos % (Auto) 2.1, Baso % (Auto) 0.1, Absolute Neuts (auto) 6.9, Absolute Lymphs (auto) 0.36 L, Nucleated RBC % 0, Sodium 134, Potassium 4.1, Chloride 95 L, Carbon Dioxide 24.2, Anion Gap 15, BUN 80 H, Creatinine 1.72 H, Estim Creat Clear Calc 25.64 L, Est GFR (MDRD) Non-Af 33 L, BUN/Creatinine Ratio 46.7 H, Glucose 104 H, Calcium 8.7 01/21/25 06:26: POC Glucose 108 H 01/21/25 08:15: POC Glucose 130 H 01/21/25 09:56: POC Glucose 129 H Micro: Microbiology 01/20/25 17:00 Mucosa - Nasopharyngeal Respiratory Panel (PCR) - Final 01/20/25 19:00 Nasal Secretion SARS-CoV-2 Antigen (Rapid) - Final Radiography Diagnostic Testing: Radiology Impression Chest X-Ray 01/20/25 12:38 IMPRESSION: There are increased interstitial markings bilaterally with no focal consolidation. This may represent mild central vascular congestion. Reading Location: [facility] Physical Exam Narrative General: Alert, Oriented x1, Cooperative, No apparent distress, cachectic HEENT: Atraumatic, PERRLA, EOMI, Normocephalic Oral: Moist Mucosa Neck: Supple, No JVD Lungs: Clear to auscultation, Normal air movement, No rhonchi, No wheeze, No rales Cardiovascular: Regular rate, Regular Rhythm, Normal S1, Normal S2, No murmurs Abdomen: Soft, Non Tender, Non-Distended, No Hepato-splenomegaly, PEG tube present Extremities: No edema, Capillary Refill Less than 3 Seconds Skin: No rashes, No breakdown Musculoskeletal: No Tenderness to Palpation of Joints or Extremities Neurological: No focal neurological deficits, moves all extremities Psych/Mental Status: Flat Assessment & Plan Assessment/Plan (1) Urinary tract infection: (2) Hypoglycemia: PLAN: Plan 1. Sepsis secondary to UTI with hypoglycemia/failure to thrive with severe protein calorie malnutrition ? Urine culture pending ? Continue with antibiotics ? IV fluids were limited despite her sepsis secondary to being end-stage renal on hemodialysis ? Continue to hold her Lasix ? Blood sugars are improved with tube feeds, will continue to monitor ? Continue with tube feeds, appreciate nutritional assistance 2. Hypoxia ? Unclear as to the etiology, there is some mild central vascular congestion on chest x-ray ? She is dialysis dependent ? Continue to hold hold IV fluids but also will hold her Lasix pending dialysis 3. End-stage renal disease on hemodialysis ? Appreciate nephrology's assistance 4. Essential HTN/HLD/PAD ? Will hold her home blood pressure medications as she did present septic ? Will monitor and make adjustments as necessary ? She does take midodrine as needed on dialysis days ? Continue with her home cholesterol medications 5. Hypothyroidism ? Stable ? Continue with Synthroid 6. GERD ? Stable ? Continue with PPI DVT: Heparin Charges/Coding Visit Charges Inpatient E&M: 86117 Subs Hosp L2
--- NOTE | 2025-01-21 10:55 | WOUNDNOTE ---
wound photo: left lower abdomen
--- NOTE | 2025-01-21 10:55 | WOUNDNOTE ---
wound photo: right great and 2nd toe
--- NOTE | 2025-01-21 14:22 | PCM.CONS.R ---
Assessment & Plan Assessment/Plan (1) Chronic kidney disease with end stage renal 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: PLAN: Usually gets dialysis twice a week. Last dialysis was yesterday, uneventful. She complained of diarrhea with tube feeds yesterday. Fluid removal limited by low blood pressure. Currently looks okay. Treatment of UTI as per primary. In general she is on slow creatinine due to extremely poor muscle mass. HPI Consult Data Date of Consult: 01/21/25 HPI Narrative Reason for Consultation: ESRD HPI Narrative: SCOTT OBREGON, is a 64 F who presents to the hospital with altered mental status confusion. Nephrology on consultation in view of ESRD. History of renal failure, on dialysis twice a week. Has had poor nutritional intake recently. At some point she was considered for hospice but recently she had a PEG placed earlier tube feeds. Nutritional status is somewhat better since starting tube feeds. Went to dialysis yesterday, and abdomen. Atrial for suspected UTI. 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 Gross hematuria Retroperitoneal hematoma Constipation, unspecified Raynaud's syndrome without gangrene Hypo-osmolality and hyponatremia Hyperlipidemia, unspecified Hypothyroidism, unspecified Anemia, unspecified Need for assistance with personal care Other malaise Other abnormalities of gait and mobility Unsteadiness on feet Muscle weakness (generalized) Other symbolic dysfunctions Dysphagia, oropharyngeal phase Essential (primary) hypertension Activated protein C resistance Unspecified severe protein-calorie malnutrition Acute respiratory failure with hypoxia Emphysema, unspecified Peripheral vascular disease, unspecified Enterocolitis due to Clostridium difficile, not specified as recurrent Acute kidney failure, unspecified Leakage of aortic (bifurcation) graft (replacement), subsequent encounter Abdominal aortic aneurysm, ruptured, unspecified Home Medications ?Medication ?Instructions ?Recorded ?Last Taken ?Type aspirin 81 mg tablet,delayed 81 mg PO DAILY 03/11/24 07/23/24 History release (Adult Aspirin Regimen) atorvastatin 20 mg tablet 20 mg PO QHS 03/11/24 07/22/24 History metoprolol tartrate 25 mg tablet 25 mg PO BID 03/11/24 07/22/24 History thiamine HCl (vitamin B1) 100 mg 100 mg PO BID 04/11/24 07/23/24 History tablet cyclobenzaprine 5 mg tablet 5 mg PO Q8H PRN MUSCLE SPASMS 06/05/24 07/10/24 History acetaminophen 325 mg tablet 650 mg PO Q4H PRN fever 07/18/24 Unknown History aluminum-magnesium hydroxide 200 30 ml PO Q4H PRN GI DISTRESS 07/18/24 Unknown History mg-200 mg/5 mL oral suspension amlodipine 5 mg tablet 5 mg PO QHS 07/18/24 07/22/24 History docusate sodium 100 mg tablet 100 mg PO PRN PRN constipation 07/18/24 Unknown History guaifenesin 100 mg/5 mL oral liquid 400 mg PO TID PRN cough 07/18/24 07/14/24 History levothyroxine 200 mcg tablet 200 mcg PO DAILY 07/18/24 07/23/24 History midodrine 10 mg tablet 10 mg PO DAILY PRN for SBP lower 07/18/24 Unknown History than 110 during dialysis tx ondansetron 4 mg disintegrating 4 mg PO DAILY PRN nausea and 07/18/24 Unknown History tablet vomiting oxycodone 5 mg tablet 5 mg PO PRN PRN pain 07/18/24 07/22/24 History polyethylene glycol 3350 17 17 g PO QODAY 07/18/24 07/21/24 History gram/dose oral powder sennosides 8.6 mg-docusate sodium 1 tab-cap PO DAILY PRN constipation 07/18/24 Unknown History 50 mg tablet (Senna Plus) vitamin B complex-vitamin C-folic 1 tab PO DAILY 07/18/24 07/23/24 History acid 0.8 mg tablet (Renal Vitamin) bisacodyl 10 mg rectal suppository 10 mg MS DAILY PRN constipation 07/31/24 Unknown History glucagon HCl 1 mg solution for 1 mg IM Q20M PRN hypoglycemia 07/31/24 Unknown History injection (Glucagon (HCl) Emergency Kit) ascorbic acid (vitamin C) 500 mg 500 mg PO DAILY #0 tabs 08/13/24 Unknown Rx tablet acetaminophen 650 mg rectal 650 mg MS Q4H PRN fever or pain 08/14/24 Unknown History suppository dextrose 40 % oral gel (Glucose 10 g PO Q15M PRN hypoglycemia 08/14/24 Unknown History Gel) sodium phosphates 19 gram-7 118 ml MS DAILY PRN constipation 08/14/24 Unknown History gram/118 mL enema (Enema) cetirizine 10 mg tablet (24Hour 10 mg PO DAILY 09/15/24 Unknown History Allergy) [employer]Source Renal tube feed 01/20/25 Unknown History albuterol sulfate 2.5 mg/3 mL 2.5 mg continuous nebulization Q8H 01/20/25 Unknown History (0.083 %) solution for nebulization PRN shortness of breath or wheezing esomeprazole magnesium 40 mg 40 mg PO DAILY 01/20/25 Unknown History capsule,delayed release ferrous sulfate 325 mg (65 mg 325 mg PO DAILY 01/20/25 Unknown History iron) tablet furosemide 80 mg tablet 80 mg PO DAILY edema or increased 01/20/25 Unknown History dyspnea gentamicin 0.1 % topical cream 1 applic topical DAILY LEFT TOE 01/20/25 Unknown History WOUND mirtazapine 30 mg tablet 30 mg PO QHS 01/20/25 Unknown History sertraline 50 mg tablet 50 mg PO DAILY 01/20/25 Unknown History Allergy/AdvReac Type Severity Reaction Status Date / Time iodine Allergy Intermediate Nausea Verified 01/20/25 11:40 shellfish derived Allergy Intermediate Nausea Verified 01/20/25 11:40 Social History Smoking Status: Former smoker Tobacco: How many years used: 40 alcohol intake: former substance use type: does not use ROS ROS Narrative Negative except above Physical Exam Narrative no pallor no icterus no JVD s1s2 no murmurs lungs clear abdomen soft no organomegaly Lab / Micro Data 01/21/25 05:13 01/21/25 05:13 Labs: Laboratory Results - last 24 hr 01/20/25 15:06: POC Glucose 243 H 01/20/25 17:00: Lactic Acid 2.8 H* 01/20/25 17:01: POC Glucose 122 H 01/20/25 18:47: POC Glucose 20 L* 01/20/25 19:38: POC Glucose 21 L* 01/20/25 20:20: POC Glucose 195 H 01/20/25 21:18: POC Glucose 138 H 01/21/25 01:21: POC Glucose 143 H 01/21/25 03:37: POC Glucose 92 01/21/25 04:44: POC Glucose 68 L 01/21/25 05:13: WBC 8.3, RBC 4.14 L, Hgb 11.8 L, Hct 37.9, MCV 91.5, MCH 28.5, MCHC 31.1 L, RDW Std Deviation 58.8 H, RDW Coeff of Monika 17.6 H, Plt Count 148 L, MPV 11.0, Immature Gran % (Auto) 0.700, Neut % (Auto) 83.5 H, Lymph % (Auto) 4.4 L, Heard % (Auto) 9.2, Eos % (Auto) 2.1, Baso % (Auto) 0.1, Absolute Neuts (auto) 6.9, Absolute Lymphs (auto) 0.36 L, Nucleated RBC % 0, Sodium 134, Potassium 4.1, Chloride 95 L, Carbon Dioxide 24.2, Anion Gap 15, BUN 80 H, Creatinine 1.72 H, Estim Creat Clear Calc 25.64 L, Est GFR (MDRD) Non-Af 33 L, BUN/Creatinine Ratio 46.7 H, Glucose 104 H, Calcium 8.7 01/21/25 06:26: POC Glucose 108 H 01/21/25 08:15: POC Glucose 130 H 01/21/25 09:56: POC Glucose 129 H 01/21/25 12:03: POC Glucose 91 Micro: Microbiology 01/20/25 12:23 Urine, Catheterized Urine Culture - Preliminary Gram positive organism 01/20/25 17:00 Mucosa - Nasopharyngeal Respiratory Panel (PCR) - Final 01/20/25 19:00 Nasal Secretion SARS-CoV-2 Antigen (Rapid) - Final
--- NOTE | 2025-01-21 14:40 | CHAPLAIN ---
Type of Pastoral Visit ___ Initial Visit ___ Follow-up Visit ___ On-call Visit ___ General Patient Visit ___ Spiritual Assessment ___ Family Conference ___ Bereavement ___ Rapid Response ___ Code Blue ___ Other (describe below) Pastoral Care Referral From ___ Patient ___ Family ___ Nurse ___ Physician ___ [place] ___ Export Freight Manager ___ Other (describe below) Sacrament/Intervention ___ Active listening ___ Anointing ___ Tenriism ___ Bereavement ___ Communion ___ Cherri exploration ___ ___ Life review ___ Prayer ___ Reconciliation ___ Sacrament of Sick ___ Supportive presence ___ Wedding ___ Other (describe below) Pastoral Comments patient is sound asleep and on the bi-pap machine; did not disturb but left a calling card
[2025-01-21] MEDS: NEPRO 1,000 ML 55 ML GT (15:00)
[2025-01-21] MEDS: NEPRO 1,000 ML 40 ML GT (17:10)
[2025-01-21] MEDS: Pantoprazole Sodium 40 MG in 0.9% Normal Saline (100mL MB+) 100 ML 300 MG IV (22:36)
[2025-01-22] VITALS (12 sets, daily range): BP systolic 124–147; BP diastolic 55–79; PULSE 76–108; RESP 15–19; TEMP 36.4–37.4; O2SAT 99–100; BMI 13.8; BMI 13.7; BMI 13.5
[2025-01-22 05:53] LABS: Hematocrit 36.7 % (37-47); Hemoglobin 11.3 g/dL (12.0-15.0); Immature Granulocytes Count 0.040 X10^3/uL (0.0-0.0); Mean Corp Hgb Conc 30.8 g/dL (32-36); Mean Corpuscular Volume 91.3 fL (81-99); Mean Platelet Vol. 11.0 fl (6.2-12.0); NRBC Flagged by Analyzer 0 % (0-5); POSITIVE DIFFERENTIAL YES; Platelet Count 149 K/mm3 (150-450); RBC Distribution Width CV 17.2 % (11.6-14.6); RBC Distribution Width SD 57.4 fl (35.1-43.9); Red Blood Count 4.02 M/mm3 (4.2-5.4); White Blood Count 6.2 K/mm3 (4.4-11.0)
[2025-01-22] MEDS: 0.9% Saline Lock 10 ML Syringe IV ×3 (06:11→11:58)
[2025-01-22 06:21] LABS: Anion Gap 14 (5-15); BUN 90 mg/dL (4-19); BUN/Creat Ratio 42.9 RATIO (10-20); Calcium,Total 9.5 mg/dL (7.6-11.0); Carbon Dioxide 21.7 mmol/L (21.0-32.0); Chloride 101 mmol/L (98-108); Estimated Creatinine Clearance 20.35 ml/min (50-250); Glucose 105 mg/dL (70-99); Potassium 4.1 mmol/L (3.3-5.1)
[2025-01-22] MEDS: Aspirin E.C. 81 MG Tablet PO (08:33)
[2025-01-22] MEDS: Heparin Injection (Vial) 5,000 UNIT/ML VIAL 5000 UNIT SC (08:34)
[2025-01-22] MEDS: Folic Acid/Vitamin B Comp W-C 1 Capsule 1 CAP PO (08:34)
[2025-01-22] MEDS: Thiamine Hydrochloride 100 MG Tablet PO (08:34)
[2025-01-22] MEDS: Pantoprazole Sodium 40 MG in 0.9% Normal Saline (100mL MB+) 100 ML 300 MG IV (08:42)
[2025-01-22] MEDS: PureFlow B 3K Dialysis Soln 1 BAG 6 BAG PF (10:07)
[2025-01-22] MEDS: 0.9% Normal Saline 1,000 ML IV.SOLN. 1000 ML OPERA.SITE (10:07)
--- NOTE | 2025-01-22 13:48 | PCM.TXEXTCAR ---
Diet Diet Order/Speech Therapy: INPATIENT Hospital Diet / Speech Therapy Order(s) 01/21/25 17:16 Diet: Regular - No Added Salt Food consistency:: Regular Liquid Consistency:: Regular/Thin Routine Orders/Code Status Routine Lab Work: CBC and BMP DC O2, CPAP, BIPAP needs Home O2 Discharge instructions: No Wound(s) abdominal wound LLQ: Wound Type: non healing wound left lower abdomen: Wound Type: nonhealing wound Dressing Change: AntiMicrobial (Aquacel AG, etc) Therapies Physical Therapy: Eval and Treat Occupational Therapy: Eval and Treat Problem/Diagnosis (1) Chronic kidney disease with end stage renal 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: Status: Chronic Code(s): N18.6 - End stage renal disease; Z99.2 - Dependence on renal dialysis Plan 1. Sepsis secondary to UTI with hypoglycemia/failure to thrive with severe protein calorie malnutrition ? Urine culture pending ? Continue with antibiotics ? IV fluids were limited despite her sepsis secondary to being end-stage renal on hemodialysis ? Continue to hold her Lasix ? Blood sugars are improved with tube feeds, will continue to monitor ? Continue with tube feeds, appreciate nutritional assistance 2. Hypoxia ? Unclear as to the etiology, there is some mild central vascular congestion on chest x-ray ? She is dialysis dependent ? Continue to hold hold IV fluids but also will hold her Lasix pending dialysis 3. End-stage renal disease on hemodialysis ? Appreciate nephrology's assistance 4. Essential HTN/HLD/PAD ? Will hold her home blood pressure medications as she did present septic ? Will monitor and make adjustments as necessary ? She does take midodrine as needed on dialysis days ? Continue with her home cholesterol medications 5. Hypothyroidism ? Stable ? Continue with Synthroid 6. GERD ? Stable ? Continue with PPI DVT: Heparin Allergies/Procedures Done in Hospital Allergies iodine Allergy (Intermediate, Verified 01/20/25 11:40) Nausea shellfish derived Allergy (Intermediate, Verified 01/20/25 11:40) Nausea Procedures: None Type of Care/Length of Stay Estimated LOS: More Than 30 Days Type of Care Needed: Skilled Rehab Potential: Fair Prognosis: Fair Additional Orders/Day of Discharge Day of Discharge: 01/22/25 Dietary and Speech Recommendations Dietitian Recommendations/Changes: Will adjust PEG TF to Nepro at 40mL/hr goal rate with 120mL water flush Q 4 hours to provide 1699 kcal, 78 gm protein and 1418 mL free water per day. Increase water flushes as needed depending on oral intake. PO Regular; no added salt diet as tolerated for pleasure. Will d/c PO savana patel, pt is refusing. Discharge Plan Admission Admit Date/Time: 01/20/25 15:51 Attending Provider: Glenn Munguia Primary Care Provider: Millie Massey Consulting Providers: Angie Torres; Alice Perez Discharge Orders/Prescriptions Prescriptions: New IV with Additives Nepro [Nepro Carb Steady] 1000 ML 40 mls/hr GT Ordered By: Glenn Munguia MD Last Taken: 01/21/25 17:10 40 mls/hr cefdinir 300 mg capsule 300 mg PO DAILY Qty: 4 0RF Continued cyclobenzaprine 5 mg tablet 5 mg PO Q8H PRN (Reason: MUSCLE SPASMS) acetaminophen 325 mg tablet 650 mg PO Q4H PRN (Reason: fever) guaifenesin 100 mg/5 mL liquid 400 mg PO TID PRN (Reason: cough) Renal Vitamin 0.8 mg tablet 1 tab PO DAILY polyethylene glycol 3350 17 gram/dose powder 17 g PO QODAY Rx Instructions: EVERY OTHER DAY AT BED TIME ondansetron 4 mg tablet,disintegrating 4 mg PO DAILY PRN (Reason: nausea and vomiting) docusate sodium 100 mg tablet 100 mg PO PRN PRN (Reason: constipation) midodrine 10 mg tablet 10 mg PO DAILY PRN (Reason: for SBP lower than 110 during dialysis tx) Rx Instructions: for SBP lower than 110 during dialysis tx acetaminophen 650 mg suppository 650 mg RI Q4H PRN (Reason: fever or pain) Enema 19-7 gram/118 mL enema 118 ml RI DAILY PRN (Reason: constipation) Rx Instructions: NEEDED FOR CONSTIPATION FOR 2 EPISODES IF DULCOLAX SUPP INEFFECTIVE. CALL PHYSICIAN IF NO BM X4 DAYS dextrose [Glucose Gel] 40 % gel 10 g PO Q15M PRN (Reason: hypoglycemia) Rx Instructions: until symptoms of low blood sugar are controlled cetirizine [24Hour Allergy] 10 mg tablet 10 mg PO DAILY Patient Comments: until 09/20 albuterol sulfate 2.5 mg /3 mL (0.083 %) solution for nebulization 2.5 mg continuous nebulization Q8H PRN (Reason: shortness of breath or wheezing) Patient Comments: [NO ORIGINAL SIG] esomeprazole magnesium 40 mg capsule,delayed release(DR/EC) 40 mg PO DAILY gentamicin 0.1 % cream 1 applic topical DAILY mirtazapine 30 mg tablet 30 mg PO QHS furosemide 80 mg tablet 80 mg PO DAILY ferrous sulfate 325 mg (65 mg iron) tablet 325 mg PO DAILY sertraline 50 mg tablet 50 mg PO DAILY aspirin [Adult Aspirin Regimen] 81 mg tablet,delayed release (DR/EC) 81 mg PO DAILY atorvastatin 20 mg tablet 20 mg PO QHS metoprolol tartrate 25 mg tablet 25 mg PO BID thiamine HCl (vitamin B1) 100 mg tablet 100 mg PO BID amlodipine 5 mg tablet 5 mg PO QHS levothyroxine 200 mcg tablet 200 mcg PO DAILY sennosides-docusate sodium [Senna Plus] 8.6-50 mg tablet 1 tab-cap PO DAILY PRN (Reason: constipation) aluminum-magnesium hydroxide 200-200 mg/5 mL suspension 30 ml PO Q4H PRN (Reason: GI DISTRESS) bisacodyl 10 mg suppository 10 mg RI DAILY PRN (Reason: constipation) glucagon HCl [Glucagon (HCl) Emergency Kit] 1 mg recon soln 1 mg IM Q20M PRN (Reason: hypoglycemia) Rx Instructions: until target blood sugar attained ascorbic acid (vitamin C) 500 mg Tablet 500 mg PO DAILY Qty: 0 0RF Discontinued [employer] Renal Rx Instructions: tube feed rate 55ml/hr with 15cc h2o flush q 1 hour oxycodone 5 mg tablet 5 mg PO PRN PRN (Reason: pain) Referrals / Follow Up: Millie Massey MD [Primary Care Provider] - Disposition Disposition (needs filled in before D/C Order can be placed): [facility]
--- NOTE | 2025-01-22 14:09 | CASEMGMT ---
Patient has order for discharge. Patient to return to [facility] and they will try for skilled LOC. Discharge papers received. RN CM updated DC material planning analyst to compete discharge, schedule transport, and updated family.
--- NOTE | 2025-01-22 14:17 | CASEMGMT ---
Discharge Planning Discharge orders, signed med list, and transport time sent to [facility]. Physicians will transport pt by cot at 3:30p. Nursing, RN CM, and pts sister/HC POA (Janette) updated. Joellen Billy DC Planning Asst.
--- NOTE | 2025-01-22 15:00 | CHAPLAIN ---
Type of Pastoral Visit _x__ Initial Visit ___ Follow-up Visit ___ On-call Visit ___ General Patient Visit ___ Spiritual Assessment ___ Family Conference ___ Bereavement ___ Rapid Response ___ Code Blue ___ Other (describe below) Pastoral Care Referral From _x__ Patient ___ Family ___ Nurse ___ Physician ___ Development Trainer ___ Junior Account Executive ___ Other (describe below) Sacrament/Intervention _x__ Active listening ___ Anointing ___ Zoroastrian ___ Bereavement ___ Communion _x__ Cherri exploration ___ ___ Life review _x__ Prayer ___ Reconciliation ___ Sacrament of Sick _x__ Supportive presence ___ Wedding ___ Other (describe below) Pastoral Comments patient is awake and alert today; pt did have dialysis today and admits to being tired but welcoming of visit; pt presents self with a positive attitude about how things are going and the support she has from others, including her sister and her pastors; pt repeats God is on my side and I am pretty fortunate; pt welcomes presence and prayers with this short visit
--- NOTE | 2025-01-22 17:15 | DS.PCM_ITS ---
Providers Date of Admission: 01/20/25 Primary Care Physician: Dr. 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 Routine Comment: Reason For Visit: SEPSIS Diagnosis Discharge Diagnosis (1) Chronic kidney disease with end stage renal 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: Status: Chronic Code(s): N18.6 - End stage renal disease; Z99.2 - Dependence on renal dialysis Medications at Discharge Home Medications aspirin 81 mg tablet,delayed release (Adult Aspirin Regimen) 81 mg PO DAILY 03/11/24 atorvastatin 20 mg tablet 20 mg PO QHS 03/11/24 metoprolol tartrate 25 mg tablet 25 mg PO BID 03/11/24 thiamine HCl (vitamin B1) 100 mg tablet 100 mg PO BID 04/11/24 cyclobenzaprine 5 mg tablet 5 mg PO Q8H PRN MUSCLE SPASMS 06/05/24 acetaminophen 325 mg tablet 650 mg PO Q4H PRN fever 07/18/24 aluminum-magnesium hydroxide 200 mg-200 mg/5 mL oral suspension 30 ml PO Q4H PRN GI DISTRESS 07/18/24 amlodipine 5 mg tablet 5 mg PO QHS 07/18/24 docusate sodium 100 mg tablet 100 mg PO PRN PRN constipation 07/18/24 guaifenesin 100 mg/5 mL oral liquid 400 mg PO TID PRN cough 07/18/24 levothyroxine 200 mcg tablet 200 mcg PO DAILY 07/18/24 midodrine 10 mg tablet 10 mg PO DAILY PRN for SBP lower than 110 during dialysis tx 07/18/24 ondansetron 4 mg disintegrating tablet 4 mg PO DAILY PRN nausea and vomiting 07/18/24 polyethylene glycol 3350 17 gram/dose oral powder 17 g PO QODAY 07/18/24 sennosides 8.6 mg-docusate sodium 50 mg tablet (Senna Plus) 1 tab-cap PO DAILY PRN constipation 07/18/24 vitamin B complex-vitamin C-folic acid 0.8 mg tablet (Renal Vitamin) 1 tab PO DAILY 07/18/24 bisacodyl 10 mg rectal suppository 10 mg MD DAILY PRN constipation 07/31/24 glucagon HCl 1 mg solution for injection (Glucagon (HCl) Emergency Kit) 1 mg IM Q20M PRN hypoglycemia 07/31/24 ascorbic acid (vitamin C) 500 mg tablet 500 mg PO DAILY #0 tabs 08/13/24 acetaminophen 650 mg rectal suppository 650 mg MD Q4H PRN fever or pain 08/14/24 dextrose 40 % oral gel (Glucose Gel) 10 g PO Q15M PRN hypoglycemia 08/14/24 sodium phosphates 19 gram-7 gram/118 mL enema (Enema) 118 ml MD DAILY PRN constipation 08/14/24 cetirizine 10 mg tablet (24Hour Allergy) 10 mg PO DAILY 09/15/24 albuterol sulfate 2.5 mg/3 mL (0.083 %) solution for nebulization 2.5 mg continuous nebulization Q8H PRN shortness of breath or wheezing 01/20/25 esomeprazole magnesium 40 mg capsule,delayed release 40 mg PO DAILY 01/20/25 ferrous sulfate 325 mg (65 mg iron) tablet 325 mg PO DAILY 01/20/25 furosemide 80 mg tablet 80 mg PO DAILY edema or increased dyspnea 01/20/25 gentamicin 0.1 % topical cream 1 applic topical DAILY LEFT TOE WOUND 01/20/25 mirtazapine 30 mg tablet 30 mg PO QHS 01/20/25 sertraline 50 mg tablet 50 mg PO DAILY 01/20/25 IV with Additives 40 mls/hr GT 01/22/25 cefdinir 300 mg capsule 300 mg PO DAILY #4 caps 01/22/25 Hospital Course Operations None Procedures Dialysis Summary of Care Provided Minutes Spent on Discharge: 33 Hospital Course: Per HPI: SCOTT OBREGON, is a 64-year-old female history of end-stage renal disease on hemodialysis, hypothyroidism, hypertension, GERD, failure to thrive with chronic PEG who presented [facility] ED 01/20/2025 due to unresponsive episode. EMS checked patient's glucose and it was 53, she was given 1 mg of IM glucagon and subsequent glucose 28 in the ED and after D10 it was 26, patient given D50 with improvement. In the ED patient afebrile, heart rate 77, blood pressure 159/98, respiratory rate 19 and pulse ox initially 100% on nonrebreather and subsequently 86% on 4 L nasal cannula. CBC with normal blood count, BMP with a BUN of 52 and a creatinine 1.27 which seems to be at her close to baseline, lactic acid noted to be 3, UA suggestive of UTI. Chest x-ray with possible mild central vascular congestion, no focal consolidation. Patient given antibiotics for UTI and hospitalist contacted for admission. Patient evaluated at bedside, patient was limited in her answering of questions but eyes were open and occasionally would answer but subsequently would not interact, had recent glucose check of 200s. Unable to obtain further history from patient and no family at bedside. Hospital Course: 1. Sepsis secondary to UTI with hypoglycemia/failure to thrive with severe protein calorie malnutrition ? Urine culture pending with 50-80,000 CFU of gram-positive cocci ? Continue with antibiotics ? IV fluids were limited despite her sepsis secondary to being end-stage renal on hemodialysis ? Continue to hold her Lasix ? Blood sugars are improved with tube feeds, will continue to monitor ? Continue with tube feeds, appreciate nutritional assistance ? She is A and O x 3 today and I discussed with her the possibility for discharge and she expressed understanding of the risks and benefits going back to her nursing facility and would like to go today. Nutrition was consulted and recommended changing her to 40 mL/h of tube feeds of nephro and since she has been transition to that her blood sugars have been stable. Will continue with cefdinir for 4 more days, given her renal disease and being on dialysis twice a week she will be on 300 mg p.o. daily. 2. Chronic hypoxia ?She states that she is on oxygen at baseline 3. End-stage renal disease on hemodialysis ? Appreciate nephrology's assistance 4. Essential HTN/HLD/PAD ? Will hold her home blood pressure medications as she did present septic ? Will monitor and make adjustments as necessary ? She does take midodrine as needed on dialysis days ? Continue with her home cholesterol medications ? She can resume her blood pressure medications on discharge 5. Hypothyroidism ? Stable ? Continue with Synthroid 6. GERD ? Stable ? Continue with PPI Physical Exam Narrative General: Alert, Oriented x3, Cooperative, No apparent distress, cachectic HEENT: Atraumatic, PERRLA, EOMI, Normocephalic Oral: Moist Mucosa Neck: Supple, No JVD Lungs: Diminished, Normal air movement, No rhonchi, No wheeze, No rales Cardiovascular: Regular rate, Regular Rhythm, Normal S1, Normal S2, No murmurs Abdomen: Soft, Non Tender, Non-Distended, No Hepato-splenomegaly, PEG tube present Extremities: No edema, Capillary Refill Less than 3 Seconds Skin: No rashes, No breakdown Musculoskeletal: No Tenderness to Palpation of Joints or Extremities Neurological: No focal neurological deficits, moves all extremities Psych/Mental Status: Flat Weight / BMI Weight Weight: 99 lb 13.91 oz Body Mass Index (BMI) 13.5 ABG / Lab / Microbiology Data 01/22/25 05:13 01/22/25 05:13 Laboratory: Laboratory Results - last 24 hr 01/21/25 18:24: POC Glucose 110 H 01/21/25 20:15: POC Glucose 104 01/21/25 22:26: POC Glucose 99 01/22/25 01:00: POC Glucose 93 01/22/25 03:51: POC Glucose 85 01/22/25 05:13: WBC 6.2, RBC 4.02 L, Hgb 11.3 L, Hct 36.7 L, MCV 91.3, MCH 28.1, MCHC 30.8 L, RDW Std Deviation 57.4 H, RDW Coeff of Monika 17.2 H, Plt Count 149 L, MPV 11.0, Immature Gran % (Auto) 0.600, Neut % (Auto) 81.1 H, Lymph % (Auto) 3.6 L, Major % (Auto) 8.2, Eos % (Auto) 6.0 H, Baso % (Auto) 0.5, Absolute Neuts (auto) 5.0, Absolute Lymphs (auto) 0.22 L, Nucleated RBC % 0, Sodium 136, Potassium 4.1, Chloride 101, Carbon Dioxide 21.7, Anion Gap 14, BUN 90 H, C reatinine 2.10 H, Estim Creat Clear Calc 20.35 L, Est GFR (MDRD) Non-Af 26 L, B UN/Creatinine Ratio 42.9 H, Glucose 105 H, Calcium 9.5 01/22/25 06:07: POC Glucose 107 H 01/22/25 08:06: POC Glucose 107 H 01/22/25 10:11: POC Glucose 96 01/22/25 14:23: POC Glucose 84 Microbiology: Microbiology 01/20/25 12:23 Urine, Catheterized Urine Culture - Preliminary Gram Positive Cocci 01/21/25 04:04 Wound - Abdominal Gram Stain - Final 01/21/25 04:04 Wound - Abdominal Wound Culture - Preliminary 01/20/25 17:00 Mucosa - Nasopharyngeal Respiratory Panel (PCR) - Final 01/20/25 19:00 Nasal Secretion SARS-CoV-2 Antigen (Rapid) - Final D/C Instructions DC O2, CPAP, BIPAP Needs Home O2 Discharge instructions: No Meaningful Use Info Meaningful Use Meaningful Use Diagnoses (Choose all that apply): None applicable Discharge Plan Admission Admit Date/Time: 01/20/25 15:51 Attending Provider: Glenn Munguia Primary Care Provider: Millie Massey Consulting Providers: Angie Torres; Alice Perez Discharge Orders/Prescriptions Prescriptions: New IV with Additives Nepro [Nepro Carb Steady] 1000 ML 40 mls/hr GT Ordered By: Glenn Munguia MD Last Taken: 01/21/25 17:10 40 mls/hr cefdinir 300 mg capsule 300 mg PO DAILY Qty: 4 0RF Continued cyclobenzaprine 5 mg tablet 5 mg PO Q8H PRN (Reason: MUSCLE SPASMS) acetaminophen 325 mg tablet 650 mg PO Q4H PRN (Reason: fever) guaifenesin 100 mg/5 mL liquid 400 mg PO TID PRN (Reason: cough) Renal Vitamin 0.8 mg tablet 1 tab PO DAILY polyethylene glycol 3350 17 gram/dose powder 17 g PO QODAY Rx Instructions: EVERY OTHER DAY AT BED TIME ondansetron 4 mg tablet,disintegrating 4 mg PO DAILY PRN (Reason: nausea and vomiting) docusate sodium 100 mg tablet 100 mg PO PRN PRN (Reason: constipation) midodrine 10 mg tablet 10 mg PO DAILY PRN (Reason: for SBP lower than 110 during dialysis tx) Rx Instructions: for SBP lower than 110 during dialysis tx acetaminophen 650 mg suppository 650 mg MD Q4H PRN (Reason: fever or pain) Enema 19-7 gram/118 mL enema 118 ml MD DAILY PRN (Reason: constipation) Rx Instructions: NEEDED FOR CONSTIPATION FOR 2 EPISODES IF DULCOLAX SUPP INEFFECTIVE. CALL PHYSICIAN IF NO BM X4 DAYS dextrose [Glucose Gel] 40 % gel 10 g PO Q15M PRN (Reason: hypoglycemia) Rx Instructions: until symptoms of low blood sugar are controlled cetirizine [24Hour Allergy] 10 mg tablet 10 mg PO DAILY Patient Comments: until 09/20 albuterol sulfate 2.5 mg /3 mL (0.083 %) solution for nebulization 2.5 mg continuous nebulization Q8H PRN (Reason: shortness of breath or wheezing) Patient Comments: [NO ORIGINAL SIG] esomeprazole magnesium 40 mg capsule,delayed release(DR/EC) 40 mg PO DAILY gentamicin 0.1 % cream 1 applic topical DAILY mirtazapine 30 mg tablet 30 mg PO QHS furosemide 80 mg tablet 80 mg PO DAILY ferrous sulfate 325 mg (65 mg iron) tablet 325 mg PO DAILY sertraline 50 mg tablet 50 mg PO DAILY aspirin [Adult Aspirin Regimen] 81 mg tablet,delayed release (DR/EC) 81 mg PO DAILY atorvastatin 20 mg tablet 20 mg PO QHS metoprolol tartrate 25 mg tablet 25 mg PO BID thiamine HCl (vitamin B1) 100 mg tablet 100 mg PO BID amlodipine 5 mg tablet 5 mg PO QHS levothyroxine 200 mcg tablet 200 mcg PO DAILY sennosides-docusate sodium [Senna Plus] 8.6-50 mg tablet 1 tab-cap PO DAILY PRN (Reason: constipation) aluminum-magnesium hydroxide 200-200 mg/5 mL suspension 30 ml PO Q4H PRN (Reason: GI DISTRESS) bisacodyl 10 mg suppository 10 mg MD DAILY PRN (Reason: constipation) glucagon HCl [Glucagon (HCl) Emergency Kit] 1 mg recon soln 1 mg IM Q20M PRN (Reason: hypoglycemia) Rx Instructions: until target blood sugar attained ascorbic acid (vitamin C) 500 mg Tablet 500 mg PO DAILY Qty: 0 0RF Discontinued [employer] Renal Rx Instructions: tube feed rate 55ml/hr with 15cc h2o flush q 1 hour oxycodone 5 mg tablet 5 mg PO PRN PRN (Reason: pain) Referrals / Follow Up: Millie Massey MD [Primary Care Provider] - Disposition Disposition (needs filled in before D/C Order can be placed): Care Home Facility Charges/Coding Visit Charges Inpatient E&M: 88032 Disch Hosp >30min
== END 2025-01-22 16:36 | disposition skilled nursing facility (03) | DRG 871 ==
LOC: ED 15:14 → PCU 16:10
PROVIDERS: Admitting Provider Internal Medicine; Emergency Provider Emergency Medicine; PCP Internal Medicine; Visit Provider Family Medicine
DX: A41.9 Sepsis, unspecified organism (principal); G93.41 Metabolic encephalopathy; E43 Unspecified severe protein-calorie malnutrition; N18.6 End stage renal disease; I12.0 Hypertensive chronic kidney disease with stage 5 chronic kidney disease or end stage renal disease; N39.0 Urinary tract infection, site not specified; Z68.1 Body mass index [BMI] 19.9 or less, adult; E03.9 Hypothyroidism, unspecified; I73.9 Peripheral vascular disease, unspecified; Z93.1 Gastrostomy status; E16.2 Hypoglycemia, unspecified; E78.5 Hyperlipidemia, unspecified; K21.9 Gastro-esophageal reflux disease without esophagitis; Z99.2 Dependence on renal dialysis; Z79.890 Hormone replacement therapy; Z79.82 Long term (current) use of aspirin; Z87.891 Personal history of nicotine dependence; R09.02 Hypoxemia; Z79.899 Other long term (current) drug therapy; R62.7 Adult failure to thrive
CPT/HCPCS: 36415; 71045; 80048; 81001; 82962; 83605; 85025; 85610; 85730; 87040; 87070; 87077; 87086; 87088; 87186; 87205; 87633; 87811; 90937; 92526; 92610; 94668; 94762; 97802; 99285; A4216; G0257; J0696; J2405

== ENCOUNTER → 2025-02-11 | Outpatient (REF) | payer OTHER, SELFPAY | LOC: OLS.SW 05:00 | PROVIDERS: PCP Internal Medicine; Visit Provider Internal Medicine | DX: S31.109D Unspecified open wound of abdominal wall, unspecified quadrant without penetration into peritoneal cavity, subsequent encounter (principal); N39.0 Urinary tract infection, site not specified | CPT/HCPCS: 87070; 87077; 87186; 87205 ==

== ENCOUNTER 2025-02-28 11:04 | Emergency (ER) | payer OTHER, SELFPAY ==
[2025-02-28 11:05] VITALS: TEMP 36.8; BMI 15.0
--- NOTE | 2025-02-28 11:33 | EKG12_ITS ---
Test Reason : SYNCOPE Blood Pressure : */* mmHG Vent. Rate : 67 BPM Atrial Rate : 67 BPM P-R Int : 142 ms QRS Dur : 86 ms QT Int : 492 ms P-R-T Axes : 56 25 69 degrees QTcB Int : 519 ms Normal sinus rhythm Prolonged QT Abnormal ECG Confirmed by RICHARD KENNEDY, COLIN ([id number]), editor & co founder PATY TORRES ([id number]) on 03/03/2025 6:22:06 AM Referred By: Confirmed By: COLIN RAMOS MD
--- NOTE | 2025-02-28 11:44 | EX.ED.DYSGE1 ---
HPI History of Present Illness Chief Complaint: Syncope Narrative Narrative: Chief complaint and HPI: 64-year-old female with past medical history of ESRD on HD Monday/Monday/Monday, HTN, dysphagia with PEG tube, hypothyroidism, chronic hypoxia on 3 L nasal cannula presents for evaluation of syncope. Patient states that she was at dialysis when it was reported that she had a syncopal episode. Patient states that she was approximately 2 hours into her dialysis. She denies any complaints currently other than some left shoulder pain that she states she woke up with. States she thinks she may have slept wrong on the shoulder and denies any trauma. States she had no symptoms before or after the syncopal episode. She did not fall. She denies any fever, chills, shortness of breath, chest pain abdominal pain, nausea, vomiting, dysuria. She does make urine. Review of systems: See HPI Medications: As listed on the chart Allergies: As listed on the chart PFSH: Per chart Vital signs: As listed on the chart. Reviewed. Physical exam: Gen: A&Ox3, NAD Head: Normocephalic, atraumatic Eyes: No sclera icterus, conjunctiva clear, PERRL ENT: Mildly dry mucous membranes Neck: Trachea midline, No JVD CV: RRR, no murmurs, no peripheral edema, right sided HD catheter without cellulitis Resp: Lungs CTA BL, no w/r/c GI: Abd soft, non-distended, non-tender, no r/r/g, PEG tube without cellulitis Musc: Moves all extremities, no deformity,mild tenderness to palpation of the left shoulder, radial pulses +2 bilaterally, good capillary refill Skin: Warm, dry Neuro: Alert, oriented, grossly intact, sensation intact Psych: Cooperative, appropriate mood and affect [facility] Medical History VRE (vancomycin resistant enterococcus) culture positive Raynaud disease End stage renal disease Anasarca Chronic anemia Leukocytosis Severe protein-calorie malnutrition Chylothorax determined by thoracentesis 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) Open abdominal wall wound Factor 5 Leiden mutation, heterozygous Failure to thrive care home (current) use of anticoagulants Gross hematuria Retroperitoneal hematoma Constipation, unspecified Raynaud's syndrome without gangrene Hypo-osmolality and hyponatremia Hyperlipidemia, unspecified Hypothyroidism, unspecified Anemia, unspecified Need for assistance with personal care Other malaise Other abnormalities of gait and mobility Unsteadiness on feet Muscle weakness (generalized) Other symbolic dysfunctions Dysphagia, oropharyngeal phase Essential (primary) hypertension Activated protein C resistance Unspecified severe protein-calorie malnutrition Acute respiratory failure with hypoxia Emphysema, unspecified Peripheral vascular disease, unspecified Enterocolitis due to Clostridium difficile, not specified as recurrent Acute kidney failure, unspecified Leakage of aortic (bifurcation) graft (replacement), subsequent encounter Abdominal aortic aneurysm, ruptured, unspecified Home Medications ?Medication ?Instructions ?Recorded ?Last Taken ?Type aspirin 81 mg tablet,delayed 81 mg PO DAILY 03/11/24 07/23/24 History release (Adult Aspirin Regimen) atorvastatin 20 mg tablet 20 mg PO QHS 03/11/24 07/22/24 History metoprolol tartrate 25 mg tablet 25 mg PO BID 03/11/24 07/22/24 History thiamine HCl (vitamin B1) 100 mg 100 mg PO BID 04/11/24 07/23/24 History tablet cyclobenzaprine 5 mg tablet 5 mg PO Q8H PRN MUSCLE SPASMS 06/05/24 07/10/24 History acetaminophen 325 mg tablet 650 mg PO Q6H PRN fever 07/18/24 Unknown History aluminum-magnesium hydroxide 200 30 ml PO Q4H PRN GI DISTRESS 07/18/24 Unknown History mg-200 mg/5 mL oral suspension amlodipine 5 mg tablet 5 mg PO QHS 07/18/24 07/22/24 History docusate sodium 100 mg tablet 100 mg PO PRN PRN constipation 07/18/24 Unknown History guaifenesin 100 mg/5 mL oral liquid 400 mg PO TID PRN cough 07/18/24 07/14/24 History levothyroxine 200 mcg tablet 200 mcg PO DAILY 07/18/24 07/23/24 History midodrine 10 mg tablet 10 mg PO DAILY PRN for SBP lower 07/18/24 Unknown History than 110 during dialysis tx ondansetron 4 mg disintegrating 4 mg PO DAILY PRN nausea and 07/18/24 Unknown History tablet vomiting polyethylene glycol 3350 17 17 g PO QODAY 07/18/24 07/21/24 History gram/dose oral powder sennosides 8.6 mg-docusate sodium 1 tab-cap PO DAILY PRN constipation 07/18/24 Unknown History 50 mg tablet (Senna Plus) vitamin B complex-vitamin C-folic 1 tab PO DAILY 07/18/24 07/23/24 History acid 0.8 mg tablet (Renal Vitamin) bisacodyl 10 mg rectal suppository 10 mg PA DAILY PRN constipation 07/31/24 Unknown History glucagon HCl 1 mg solution for 1 mg IM Q20M PRN hypoglycemia 07/31/24 Unknown History injection (Glucagon (HCl) Emergency Kit) ascorbic acid (vitamin C) 500 mg 500 mg PO DAILY #0 tabs 08/13/24 Unknown Rx tablet acetaminophen 650 mg rectal 650 mg PA Q4H PRN fever or pain 08/14/24 Unknown History suppository dextrose 40 % oral gel (Glucose 10 g PO Q15M PRN hypoglycemia 08/14/24 Unknown History Gel) sodium phosphates 19 gram-7 118 ml PA DAILY PRN constipation 08/14/24 Unknown History gram/118 mL enema (Enema) albuterol sulfate 2.5 mg/3 mL 2.5 mg continuous nebulization Q8H 01/20/25 Unknown History (0.083 %) solution for nebulization PRN shortness of breath or wheezing esomeprazole magnesium 40 mg 40 mg PO DAILY 01/20/25 Unknown History capsule,delayed release ferrous sulfate 325 mg (65 mg 325 mg PO DAILY 01/20/25 Unknown History iron) tablet furosemide 80 mg tablet 80 mg PO DAILY edema or increased 01/20/25 Unknown History dyspnea gentamicin 0.1 % topical cream 1 applic topical DAILY LEFT TOE 01/20/25 Unknown History WOUND mirtazapine 30 mg tablet 30 mg PO QHS 01/20/25 Unknown History sertraline 50 mg tablet 50 mg PO DAILY 01/20/25 Unknown History IV with Additives 40 mls/hr GT 01/22/25 Unknown Rx cefdinir 300 mg capsule 300 mg PO DAILY #4 caps 01/22/25 Unknown Rx oxycodone 5 mg tablet 5 mg PO Q4H PRN pain 02/28/25 Unknown History Allergy/AdvReac Type Severity Reaction Status Date / Time iodine Allergy Intermediate Nausea Verified 02/28/25 11:08 shellfish derived Allergy Intermediate Nausea Verified 02/28/25 11:08 Social History Smoking Status: Former smoker Tobacco: How many years used: 40 alcohol intake: former substance use type: does not use EXAM Physical Exam Const Vital Signs: 02/28/25 11:05 02/28/25 11:34 02/28/25 12:00 Temperature 98.3 F Temperature Source Oral Pulse Rate 67 Respiratory Rate 15 Respiratory Effort Normal Non-Labored Respiratory Pattern Normal Blood Pressure 141/71 H Blood Pressure Mean 94 Pulse Ox 100 Oxygen Delivery Method Nasal Cannula Nasal Cannula Oxygen Flow Rate (L/min) 3 3 02/28/25 14:00 Temperature Temperature Source Pulse Rate 67 Respiratory Rate 23 H Respiratory Effort Respiratory Pattern Blood Pressure 145/73 H Blood Pressure Mean 97 Pulse Ox 100 Oxygen Delivery Method Nasal Cannula Oxygen Flow Rate (L/min) MDM MDM MDM Narrative Medical decision making narrative: 64-year-old female with past medical history of ESRD on HD Monday/Monday/Monday, HTN, dysphagia with PEG tube, hypothyroidism, chronic hypoxia on 3 L nasal cannula presents for evaluation of syncope. Patient states that she was at dialysis when it was reported that she had a syncopal episode. Patient states that she was approximately 2 hours into her dialysis. She denies any complaints currently other than some left shoulder pain that she states she woke up with. States she thinks she may have slept wrong on the shoulder and denies any trauma. States she had no symptoms before or after the syncopal episode. Differential diagnosis includes but is not limited to side effect from dialysis, hypotension, electrolyte abnormality, UTI. Patient not having any shortness of breath or chest pain to suspect ACS or PE. CBC without leukocytosis. Patient has baseline anemia and thrombocytopenia. BMP shows baseline CKD. Chest x-ray was personally reviewed interpreted by me, ED physician. Dialysis catheter in place. No pneumonia, effusion, cardiomegaly, pneumothorax. X-ray of the shoulder was personally reviewed and interpreted by me, ED physician. No fracture or dislocation. Radiology in agreement. Patient has not urinated here in the emergency department. It has almost been 4 hours. She declined straight cath. She states although she makes urine, it is not very frequent. We had discussion about how I cannot rule out a UTI without obtaining a urine specimen. She states that she understands that but she does not want to be straight cath and does not believe herself to have a UTI and is okay discharging home without the urine being obtained. Although I have a low suspicion for UTI given that she has no urinary symptoms, I did explain to her the risks of not obtaining the urine. If she does have a UTI it could turn into a worsening infection such as bacteremia and sepsis. She states she understands these risks but is okay with discharging home without urine specimen as she does not want to be straight cath. At this point in time, there is no clear etiology for patient's syncope. Her vitals have remained stable here in the emergency department. She has remained asymptomatic. States at baseline she is in a walker and does not ambulate. I suspect her syncopal episode was secondary to her dialysis. Patient stable to discharge home. Return precautions explained. She confirmed understand the plan. Patient will discharge home EKG: Interpreted by me/EM physician: EKG shows she has normal sinus rhythm with prolonged QT at 519. No acute ischemic changes Impression: 1. Syncope 2. History of ESRD on HD Lab Data Labs: Laboratory Results - last 24 hr 02/28/25 12:45 WBC 9.0 RBC 3.28 L Hgb 9.8 L Hct 29.6 L MCV 90.2 MCH 29.9 MCHC 33.1 RDW Std Deviation 58.6 H RDW Coeff of Monika 18.9 H Plt Count 144 L MPV 10.2 Immature Gran % (Auto) 3.400 H Neut % (Auto) 82.0 H Lymph % (Auto) 5.4 L Waldo % (Auto) 6.0 Eos % (Auto) 3.0 Baso % (Auto) 0.2 Absolute Neuts (auto) 7.4 Absolute Lymphs (auto) 0.49 L Nucleated RBC % 0 Sodium 133 Potassium 4.0 Chloride 93 L Carbon Dioxide 26.7 Anion Gap 13 BUN 45 H Creatinine 1.15 Estim Creat Clear Calc 40.44 L Est GFR (MDRD) Non-Af 54 L BUN/Creatinine Ratio 39.4 H Glucose 91 Calcium 8.6 Radiography Diagnostic Testing: Clinical Impression(s) from Imaging Studies Chest X-Ray 02/28/25 12:30 IMPRESSION: No acute abnormality. Reading Location: [facility] Shoulder X-Ray 02/28/25 12:38 IMPRESSION: No acute abnormality. Mild degenerative changes. Reading Location: [facility] Discharge Plan Triage Chief Complaint: Syncope ED Provider: Ciaran Rodrigez Dx/Rx/DC Orders Prescriptions: No Action cyclobenzaprine 5 mg tablet 5 mg PO Q8H PRN (Reason: MUSCLE SPASMS) acetaminophen 325 mg tablet 650 mg PO Q6H PRN (Reason: fever) guaifenesin 100 mg/5 mL liquid 400 mg PO TID PRN (Reason: cough) Renal Vitamin 0.8 mg tablet 1 tab PO DAILY polyethylene glycol 3350 17 gram/dose powder 17 g PO QODAY Rx Instructions: EVERY OTHER DAY AT BED TIME ondansetron 4 mg tablet,disintegrating 4 mg PO DAILY PRN (Reason: nausea and vomiting) docusate sodium 100 mg tablet 100 mg PO PRN PRN (Reason: constipation) midodrine 10 mg tablet 10 mg PO DAILY PRN (Reason: for SBP lower than 110 during dialysis tx) Rx Instructions: for SBP lower than 110 during dialysis tx acetaminophen 650 mg suppository 650 mg PA Q4H PRN (Reason: fever or pain) Enema 19-7 gram/118 mL enema 118 ml PA DAILY PRN (Reason: constipation) Rx Instructions: NEEDED FOR CONSTIPATION FOR 2 EPISODES IF DULCOLAX SUPP INEFFECTIVE. CALL PHYSICIAN IF NO BM X4 DAYS dextrose [Glucose Gel] 40 % gel 10 g PO Q15M PRN (Reason: hypoglycemia) Rx Instructions: until symptoms of low blood sugar are controlled albuterol sulfate 2.5 mg /3 mL (0.083 %) solution for nebulization 2.5 mg continuous nebulization Q8H PRN (Reason: shortness of breath or wheezing) Patient Comments: [NO ORIGINAL SIG] esomeprazole magnesium 40 mg capsule,delayed release(DR/EC) 40 mg PO DAILY gentamicin 0.1 % cream 1 applic topical DAILY mirtazapine 30 mg tablet 30 mg PO QHS furosemide 80 mg tablet 80 mg PO DAILY ferrous sulfate 325 mg (65 mg iron) tablet 325 mg PO DAILY sertraline 50 mg tablet 50 mg PO DAILY IV with Additives Nepro [Nepro Carb Steady] 1000 ML 40 mls/hr GT Ordered By: Glenn Munguia MD Last Taken: Unknown cefdinir 300 mg capsule 300 mg PO DAILY Qty: 4 0RF aspirin [Adult Aspirin Regimen] 81 mg tablet,delayed release (DR/EC) 81 mg PO DAILY atorvastatin 20 mg tablet 20 mg PO QHS metoprolol tartrate 25 mg tablet 25 mg PO BID thiamine HCl (vitamin B1) 100 mg tablet 100 mg PO BID amlodipine 5 mg tablet 5 mg PO QHS levothyroxine 200 mcg tablet 200 mcg PO DAILY sennosides-docusate sodium [Senna Plus] 8.6-50 mg tablet 1 tab-cap PO DAILY PRN (Reason: constipation) aluminum-magnesium hydroxide 200-200 mg/5 mL suspension 30 ml PO Q4H PRN (Reason: GI DISTRESS) bisacodyl 10 mg suppository 10 mg PA DAILY PRN (Reason: constipation) glucagon HCl [Glucagon (HCl) Emergency Kit] 1 mg recon soln 1 mg IM Q20M PRN (Reason: hypoglycemia) Rx Instructions: until target blood sugar attained ascorbic acid (vitamin C) 500 mg Tablet 500 mg PO DAILY Qty: 0 0RF oxycodone 5 mg tablet 5 mg PO Q4H PRN (Reason: pain) Primary Care Provider: Millie Massey Referrals: Millie Massey MD [Primary Care Provider, Geriatrics] Print Language: Sinhala
[2025-02-28 12:00] VITALS: BP 141/71; PULSE 67; RESP 15; O2SAT 100
--- NOTE | 2025-02-28 12:30 | RAD_ITS ---
PROCEDURE: CHEST PA AND LATERAL 02/28/2025 REASON FOR EXAM: SYNCOPE TECHNIQUE: Procedure Code: RADCXR Modality: DX Procedure: CHEST PA AND LATERAL COMPARISON: January 20, 2025, September 15, 2024 FINDINGS: Hardware: Right-sided internal jugular dialysis catheter is in place. The tip is seen over the junction of the superior vena cava and right atrium. Heart: Normal Mediastinum: Aortic atherosclerosis Lungs: Clear. No pneumothorax or pleural effusion. Bones: The bones are unremarkable. RAD/Chest PA and Lateral IMPRESSION: No acute abnormality. Reading Location: [id number]
--- NOTE | 2025-02-28 12:38 | RAD_ITS ---
PROCEDURE: SHOULDER MIN 2 VIEWS N/A REASON FOR EXAM: PAIN TECHNIQUE: Procedure Code: RADSH Modality: DX Procedure: SHOULDER MIN 2 VIEWS Laterality: Left COMPARISON: None FINDINGS: Bones: No fracture. Joints: Normal alignment. Mild degenerative changes. Soft tissues: Soft tissues are unremarkable. Other: No foreign body. RAD/Shoulder min 2 Views IMPRESSION: No acute abnormality. Mild degenerative changes. Reading Location: [id number]
[2025-02-28 13:00] LABS: Hematocrit 29.6 % (37-47); Hemoglobin 9.8 g/dL (12.0-15.0); Immature Granulocytes Count 0.310 X10^3/uL (0.0-0.0); Mean Corp Hgb Conc 33.1 g/dL (32-36); Mean Corpuscular Volume 90.2 fL (81-99); Mean Platelet Vol. 10.2 fl (6.2-12.0); NRBC Flagged by Analyzer 0 % (0-5); POSITIVE DIFFERENTIAL YES; Platelet Count 144 K/mm3 (150-450); RBC Distribution Width CV 18.9 % (11.6-14.6); RBC Distribution Width SD 58.6 fl (35.1-43.9); Red Blood Count 3.28 M/mm3 (4.2-5.4); White Blood Count 9.0 K/mm3 (4.4-11.0)
[2025-02-28 13:22] LABS: Anion Gap 13 (5-15); BUN 45 mg/dL (4-19); BUN/Creat Ratio 39.4 RATIO (10-20); Calcium,Total 8.6 mg/dL (7.6-11.0); Carbon Dioxide 26.7 mmol/L (21.0-32.0); Chloride 93 mmol/L (98-108); Estimated Creatinine Clearance 40.44 ml/min (50-250); Glucose 91 mg/dL (70-99); Potassium 4.0 mmol/L (3.3-5.1)
[2025-02-28 14:00] VITALS: BP 145/73; PULSE 67; RESP 23; O2SAT 100
[2025-02-28 15:06] VITALS: BP 141/77; PULSE 66; RESP 12; TEMP 36.8; O2SAT 100
[2025-02-28 15:33] VITALS: O2SAT 97
[2025-02-28 16:00] VITALS: BP 133/68; PULSE 64; O2SAT 100
[2025-02-28 16:19] LABS: Mucous, Urine 0 SEEN /hpf (<or=2+)
--- NOTE | 2025-02-28 16:33 | ED.RN ---
Report called to [facility]
[2025-02-28 16:49] LABS: Color, Urine Yellow (Yellow); Glucose, Dipstick Normal (Normal); Ketone-Dipstick Negative (Negative); Leukocyte Esterase-Dipstick 100 /ul (Negative); Nitrite-Dipstick Negative (Negative); Occult Blood-Urine Negative /ul (Negative); Protein-Dipstick 30 mg/dl (Negative); Specific Gravity, Urine 1.010 (1.002-1.030); Urine Bilirubin Dipstick Negative (Negative)
[2025-02-28 18:43] LABS: Red Blood Cells-Urine 0-5 SEEN /hpf (0-5); Squamous Epithelial Cells - UA 0-5 SEEN /hpf (5-10)
== END 2025-02-28 16:41 | disposition home or self-care (01) ==
PROVIDERS: Emergency Provider Surgery; PCP Internal Medicine; Visit Provider Surgery
DX: R55 Syncope and collapse (principal); N18.6 End stage renal disease; I12.0 Hypertensive chronic kidney disease with stage 5 chronic kidney disease or end stage renal disease; Z93.1 Gastrostomy status; J43.9 Emphysema, unspecified; M25.512 Pain in left shoulder; E03.9 Hypothyroidism, unspecified; E78.5 Hyperlipidemia, unspecified; R13.10 Dysphagia, unspecified; D69.6 Thrombocytopenia, unspecified; Z99.2 Dependence on renal dialysis; Z99.81 Dependence on supplemental oxygen; Z79.899 Other long term (current) drug therapy; Z87.891 Personal history of nicotine dependence
CPT/HCPCS: 36415; 71046; 73030; 80048; 81001; 85025; 93005; 99285

== ENCOUNTER → 2025-03-04 | Outpatient (REF) | payer OTHER, SELFPAY ==
[2025-03-04 09:57] LABS: Hematocrit 30.3 % (37-47); Hemoglobin 9.7 g/dL (12.0-15.0); Mean Corp Hgb Conc 32.0 g/dL (32-36); Mean Corpuscular Volume 91.5 fL (81-99); Mean Platelet Vol. 11.4 fl (6.2-12.0); Platelet Count 129 K/mm3 (150-450); RBC Distribution Width CV 19.2 % (11.6-14.6); RBC Distribution Width SD 63.2 fl (35.1-43.9); Red Blood Count 3.31 M/mm3 (4.2-5.4); White Blood Count 11.6 K/mm3 (4.4-11.0)
== END ==
LOC: OLS.SW 05:00
PROVIDERS: PCP Internal Medicine; Visit Provider Internal Medicine
DX: D64.9 Anemia, unspecified (principal); Z79.899 Other long term (current) drug therapy
CPT/HCPCS: 36415; 85027

== ENCOUNTER 2025-03-10 13:12 | Inpatient (IN) | payer OTHER, SELFPAY ==
[2025-03-10] VITALS (10 sets, daily range): BP systolic 92–146; BP diastolic 51–97; PULSE 76–97; RESP 14–20; TEMP 36.4–39.1; O2SAT 92–100; BMI 14.9; BMI 14.6
--- NOTE | 2025-03-10 13:28 | EKG12_ITS ---
Test Reason : SOB Blood Pressure : */* mmHG Vent. Rate : 94 BPM Atrial Rate : 94 BPM P-R Int : 114 ms QRS Dur : 84 ms QT Int : 404 ms P-R-T Axes : -24 21 42 degrees QTcB Int : 505 ms Normal sinus rhythm Nonspecific ST and T wave abnormality Prolonged QT Abnormal ECG Confirmed by WALT KENNEDY, NIDIA ([id number]), editor sound SHELDON AGUILAR ([id number]) on 03/12/2025 7:27:05 AM Referred By: Confirmed By: NIDIA GODOY MD
[2025-03-10 13:56] LABS: Allen Test Positive; Base Excess 13 mmol/L (-2 to +2); FI02 3.5; PO2 49 mmHG (75-100); SITE R Radial; SO2 91 % (95-99)
--- NOTE | 2025-03-10 13:58 | CPS ---
Critical ABG results handed to DR Kothari.
[2025-03-10 14:16] LABS: Hematocrit 29.9 % (37-47); Hemoglobin 9.4 g/dL (12.0-15.0); Mean Corp Hgb Conc 31.4 g/dL (32-36); Mean Corpuscular Volume 92.0 fL (81-99); Mean Platelet Vol. 9.7 fl (6.2-12.0); POSITIVE COUNT YES; POSITIVE DIFFERENTIAL YES; POSITIVE MORPHOLOGY YES; Platelet Count 232 K/mm3 (150-450); RBC Distribution Width CV 18.0 % (11.6-14.6); RBC Distribution Width SD 59.2 fl (35.1-43.9); Red Blood Count 3.25 M/mm3 (4.2-5.4); White Blood Count 11.6 K/mm3 (4.4-11.0)
[2025-03-10 14:18] LABS: Differential Indicated MANUAL DIFF
[2025-03-10 14:30] LABS: Prothrombin Time (Protime)PT. 14.0 SECONDS (11.7-14.9)
[2025-03-10 14:31] LABS: Partial Thromboplast Time 35.3 Seconds (24.1-36.2)
[2025-03-10 14:37] LABS: AST(SGOT) 121 U/L (<=31); Alanine Aminotransfer ALT/SGPT 155 U/L (<=34); Albumin, Serum 3.6 g/dL (3.4-4.8); Alkaline Phosphatase 198 U/L (35-104); Anion Gap 13 (5-15); BUN 21 mg/dL (4-19); BUN/Creat Ratio 30.7 RATIO (10-20); Calcium,Total 8.0 mg/dL (7.6-11.0); Carbon Dioxide 29.2 mmol/L (21.0-32.0); Chloride 92 mmol/L (98-108); Estimated Creatinine Clearance 66.73 ml/min (50-250); Globulin 3.8 g/dL (2.2-4.2); Glucose 122 mg/dL (70-99); Potassium 3.1 mmol/L (3.3-5.1)
[2025-03-10 14:38] LABS: Troponin T High Sensitivity 236 ng/L (<=14)
[2025-03-10 14:40] LABS: Neutrophil-Band 6 % (0-5); Neutrophil-Segmented 71 % (47-70); Total Cells Counted 100 (MANUAL DIFF)
--- NOTE | 2025-03-10 14:40 | CT_ITS ---
PROCEDURE: CTA CHST, ABD, PEL W AND/OR WO 03/10/2025 REASON FOR EXAM: PE, AORTIC, PNEUMONIA TECHNIQUE: Chest, abdomen and pelvis CT with intravenous contrast. Coronal and Sagittal reconstruction series were provided. One or more dose reduction techniques were used (e.g., Automated exposure control, adjustment of the mA and/or kV according to patient size, use of iterative reconstruction technique. PATIENT PREPARATION: Per protocol ORAL CONTRAST TYPE: None. CONTRAST: Isovue 370 VOLUME: 100 mL RADIATION DOSE SUMMARY: CTDlvol: 6.4 mGy DLP: 1433.49 mGycm COMPARISON: None FINDINGS: CT CHEST: Hardware: EKG electrodes. Lymph nodes: No suspicious mediastinal or hilar lymph nodes are seen. Heart and Vasculature: Coronary artery calcification. Lungs and Airways: Airspace disease in both lower lobes suggestive of bibasilar pneumonias. This is more prominent at the right lung base. Pleura: No significant pleural effusion is seen. Bones: Degenerative changes of the thoracic spine. CT ABDOMEN/PELVIS: Liver: Normal size. No mass. Gallbladder: Small gallstones are seen along the dependent portion of the gallbladder lumen. Mild degree of gallbladder wall thickening. Spleen: Borderline splenomegaly. Pancreas: Unremarkable Adrenals: Unremarkable Kidneys: Left staghorn calculus. The right kidney is atrophic in appears to be multi cystic in nature. Bladder: The urinary bladder is empty. Reproductive Organs: Atrophy of the uterus. Bowel: No bowel obstruction. Appendix: The appendix is not identified. There is no inflammatory process identified in the right lower quadrant to suggest appendicitis. Lymph nodes: Retroperitoneal lymph nodes. Vasculature: Aneurysmal dilatation of the distal abdominal aorta measuring 3.3 cm. There appears to be a aortic bi-iliac graft which is patent. Peritoneum / Retroperitoneum: Unremarkable Bones: Degenerative changes of the spine. CT/CTA Chst, Abd, Pel W and/or WO IMPRESSION: Bibasilar pulmonary consolidation. Small gallstones. Borderline splenomegaly. Retroperitoneal lymphadenopathy. Distal abdominal aorta with evidence of a aortic bi-iliac graft. Reading Location: [place] [id number]
--- NOTE | 2025-03-10 14:40 | CT_ITS ---
PROCEDURE: BRAIN/HEAD WITHOUT CONTRAST 03/10/2025 REASON FOR EXAM: AMS Hypotensive. TECHNIQUE: Procedure Code: CTBR Modality: CT Procedure: BRAIN/HEAD WITHOUT CONTRAST Coronal and Sagittal reconstruction series were provided. One or more dose reduction techniques were used (e.g., Automated exposure control, adjustment of the mA and/or kV according to patient size, use of iterative reconstruction technique. RADIATION DOSE SUMMARY: CTDlvol: 44.99 mGy DLP: 829.85 mGycm COMPARISON: None FINDINGS: Brain: Low density in the periventricular white matter suggests mild chronic small vessel ischemic changes. Atherosclerotic calcification of the cavernous portions of the internal carotid arteries bilaterally. CSF Spaces: Mild generalized cerebral atrophy Sinuses/Mastoids: Clear at visualized levels Bones: Unremarkable CT/Brain/Head without Contrast IMPRESSION: CHRONIC CHANGES. NO ACUTE FINDINGS. Reading Location: [place] [id number]
[2025-03-10 14:41] LABS: Red Cell Morphology NORM C+C NORMAL (NORM C&C)
[2025-03-10 14:50] LABS: Color, Urine Yellow (Yellow); Glucose, Dipstick Normal (Normal); Ketone-Dipstick Negative (Negative); Leukocyte Esterase-Dipstick Negative /ul (Negative); Nitrite-Dipstick Negative (Negative); Occult Blood-Urine Negative /ul (Negative); Protein-Dipstick 30 mg/dl (Negative); Specific Gravity, Urine 1.010 (1.002-1.030); Urine Bilirubin Dipstick Negative (Negative)
[2025-03-10 14:51] LABS: Pro- Brain NATRIURETIC PEPTIDE 3659 pg/mL (<=900)
[2025-03-10 15:01] LABS: Fine Granular Cast- Urine 0-5 SEEN /lpf (0-5)
[2025-03-10 15:02] LABS: Calcium Oxalate Crystals Ur 3+ /hpf (<or=2+); Red Blood Cells-Urine 0-5 SEEN /hpf (0-5)
[2025-03-10 15:03] LABS: Squamous Epithelial Cells - UA 0-5 SEEN /hpf (5-10)
[2025-03-10 15:04] LABS: Mucous, Urine 1+ /hpf (<or=2+)
--- NOTE | 2025-03-10 15:08 | EX.ED.DYSGE1 ---
HPI History of Present Illness Chief Complaint: Hypotension Narrative Narrative: Patient is a 64-year-old female presenting to the emergency department for reported hypotension and hypoxia. Patient is unable to provide any history due to altered mental status. She has a significant past medical history of UTI, sepsis, pulmonary edema, GI bleed, factor V Leiden, AAA repair, chronic hypoxic respiratory failure on 2 to 3 L nasal cannula. Reportedly the patient was at dialysis and she was not responding and was hypoxic on her 2 to 3 L nasal cannula so they called EMS. They also report that she was hypotensive. Dialysis was not started. EMS states that they could not get a good waveform so they placed her on a nonrebreather. EMS reports a normal blood pressure with systolics in the 120s to 130s. Patient unable to provide any history. 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) Open abdominal wall wound Factor 5 Leiden mutation, heterozygous Failure to thrive rn long term care (current) use of anticoagulants Gross hematuria Retroperitoneal hematoma Constipation, unspecified Raynaud's syndrome without gangrene Hypo-osmolality and hyponatremia Hyperlipidemia, unspecified Hypothyroidism, unspecified Anemia, unspecified Need for assistance with personal care Other malaise Other abnormalities of gait and mobility Unsteadiness on feet Muscle weakness (generalized) Other symbolic dysfunctions Dysphagia, oropharyngeal phase Essential (primary) hypertension Activated protein C resistance Unspecified severe protein-calorie malnutrition Acute respiratory failure with hypoxia Emphysema, unspecified Peripheral vascular disease, unspecified Enterocolitis due to Clostridium difficile, not specified as recurrent Acute kidney failure, unspecified Leakage of aortic (bifurcation) graft (replacement), subsequent encounter Abdominal aortic aneurysm, ruptured, unspecified Home Medications ?Medication ?Instructions ?Recorded ?Last Taken ?Type aspirin 81 mg tablet,delayed 81 mg PO DAILY HEART 03/11/24 07/23/24 History release (Adult Aspirin Regimen) atorvastatin 20 mg tablet 20 mg PO QHS CHOLESTEROL 03/11/24 07/22/24 History metoprolol tartrate 25 mg tablet 25 mg PO BID HTN 03/11/24 07/22/24 History thiamine HCl (vitamin B1) 100 mg 100 mg PO BID SUPPLEMENT 04/11/24 07/23/24 History tablet cyclobenzaprine 5 mg tablet 5 mg PO Q8H PRN MUSCLE SPASMS 06/05/24 07/10/24 History acetaminophen 325 mg tablet 650 mg PO Q6H PRN fever 07/18/24 Unknown History aluminum-magnesium hydroxide 200 30 ml PO Q4H PRN GI DISTRESS 07/18/24 Unknown History mg-200 mg/5 mL oral suspension amlodipine 5 mg tablet 5 mg PO QHS HTN 07/18/24 07/22/24 History docusate sodium 100 mg tablet 100 mg PO PRN PRN constipation 07/18/24 Unknown History guaifenesin 100 mg/5 mL oral liquid 200 mg PO PRN PRN cough 07/18/24 07/14/24 History levothyroxine 200 mcg tablet 200 mcg PO DAILY THYROID 07/18/24 07/23/24 History midodrine 10 mg tablet 10 mg PO DAILY PRN for SBP lower 07/18/24 Unknown History than 110 during dialysis tx ondansetron 4 mg disintegrating 4 mg PO DAILY PRN nausea and 07/18/24 Unknown History tablet vomiting polyethylene glycol 3350 17 17 g PO QODAY CONSTIPATION 07/18/24 07/21/24 History gram/dose oral powder sennosides 8.6 mg-docusate sodium 1 tab-cap PO DAILY PRN constipation 07/18/24 Unknown History 50 mg tablet (Senna Plus) vitamin B complex-vitamin C-folic 1 tab PO DAILY SUPPLEMENT 07/18/24 07/23/24 History acid 0.8 mg tablet (Renal Vitamin) bisacodyl 10 mg rectal suppository 10 mg NV DAILY PRN constipation 07/31/24 Unknown History ascorbic acid (vitamin C) 500 mg 500 mg PO DAILY SUPPLEMENT #0 tabs 08/13/24 Unknown Rx tablet acetaminophen 650 mg rectal 650 mg NV Q3H PRN fever or pain 08/14/24 Unknown History suppository sodium phosphates 19 gram-7 118 ml NV DAILY PRN constipation 08/14/24 Unknown History gram/118 mL enema (Enema) albuterol sulfate 2.5 mg/3 mL 2.5 mg continuous nebulization Q8H 01/20/25 Unknown History (0.083 %) solution for nebulization PRN shortness of breath or wheezing esomeprazole magnesium 40 mg 40 mg PO DAILY GERD 01/20/25 Unknown History capsule,delayed release ferrous sulfate 325 mg (65 mg 325 mg PO DAILY SUPPLEMENT 01/20/25 Unknown History iron) tablet furosemide 80 mg tablet 80 mg PO DAILY edema or increased 01/20/25 Unknown History dyspnea gentamicin 0.1 % topical cream 1 applic topical DAILY LEFT TOE 01/20/25 Unknown History WOUND mirtazapine 30 mg tablet 30 mg PO QHS MOOD 01/20/25 Unknown History sertraline 50 mg tablet 50 mg PO DAILY MOOD 01/20/25 Unknown History IV with Additives 40 mls/hr GT 01/22/25 Unknown Rx cefdinir 300 mg capsule 300 mg PO DAILY INFECTION #4 caps 01/22/25 Unknown Rx oxycodone 5 mg tablet 5 mg PO Q4H PRN pain 02/28/25 Unknown History ascorbic acid (vitamin C) 500 mg 500 mg PO QHS SUPPLEMENT 03/10/25 Unknown History tablet (C-500) Allergy/AdvReac Type Severity Reaction Status Date / Time iodine Allergy Intermediate Nausea Verified 03/10/25 13:16 shellfish derived Allergy Intermediate Nausea Verified 03/10/25 13:16 Social History Smoking Status: Former smoker Tobacco: How many years used: 40 alcohol intake: former substance use type: does not use ROS ROS ED ROS Narrative See HPI EXAM Physical Exam Narrative Exam Narrative: Vital signs: Reviewed General: Alert. Chronically unwell appearing. HEENT: Head is normocephalic and atraumatic, sinuses nontender, pupils 2 mm equal round and reactive. Nares are patent. Oropharynx and throat exams normal. Neck: Supple without lymphadenopathy nontender Cardiovascular: Regular rate and rhythm, no murmurs. No rubs or gallops. Normal S1 and S2 Respiratory: Crackles heard in bilateral lung bases. Rhonchorous lung sounds in upper lung goss. Chest: Upper chest wall access with no surrounding erythema, warmth, fluctuance or drainage. Abdominal: PEG tube in the left upper quadrant with no erythema, warmth, fluctuance or drainage. Soft and nontender. Nondistended. Normal bowel sounds. No guarding or rebound. Nonsurgical abdomen Extremities: No lower extremity edema. No tenderness. No bruising. Skin: No rash or redness. Neurological: Moves all extremities. Does not follow commands. The rest of the physical exam is unremarkable Const Vital Signs: 03/10/25 13:16 03/10/25 13:21 03/10/25 13:27 Temperature 99.8 F H 99.8 F H Temperature Source Oral Axillary Pulse Rate 95 93 Respiratory Rate 16 16 Respiratory Effort Short of Breath Respiratory Pattern Normal Blood Pressure 130/66 H 115/97 H Blood Pressure Mean 87 103 Pulse Ox 92 Oxygen Delivery Method Nasal Cannula Nasal Cannula Oxygen Flow Rate (L/min) 4 4 03/10/25 13:28 03/10/25 13:42 03/10/25 14:24 Temperature Temperature Source Pulse Rate 94 94 Respiratory Rate 20 H 20 H Respiratory Effort Respiratory Pattern Blood Pressure 116/83 H 146/79 H Blood Pressure Mean 94 101 Pulse Ox 98 96 Oxygen Delivery Method Nasal Cannula Nasal Cannula Nasal Cannula Oxygen Flow Rate (L/min) 4 4 3 03/10/25 14:24 03/10/25 15:00 Temperature 101.9 F H 102.3 F H Temperature Source Core Core Pulse Rate 95 97 Respiratory Rate 20 H 18 Respiratory Effort Respiratory Pattern Blood Pressure 146/79 H 128/56 H Blood Pressure Mean 101 80 Pulse Ox 100 100 Oxygen Delivery Method Nasal Cannula Nasal Cannula Oxygen Flow Rate (L/min) 3 3 MDM MDM MDM Narrative Medical decision making narrative: Patient is a 64-year-old female presenting to the emergency department for reported hypoxia and hypotension with altered mental status. History only obtained from EMS given patient cannot provide history. Patient looks chronically unwell but does not appear to be in acute distress. Patient is febrile initially at 99.8 however on recheck up to 101.9. On 4 L NC saturating 92%. BP stable at 130/66. HR of 95, RR of 16. Differential includes but is not limited to: Pneumonia, PE, fluid overload, URI, UTI, ACS, intraabdominal infection including cholecystitis, colitis With the patient's fever, hypoxia reported hypotension and altered mental status, likely pneumonia with possible sepsis. Blood cultures x 2 obtained. Rectal Tylenol given. Patient started on Rocephin and doxycycline. I also have concern for fluid overload with her missing dialysis today and the diffuse crackles heard. Will hold off on fluids at this time with stable blood pressure until imaging is obtained to evaluate. CBC with a mild leukocytosis of 11.6 and chronic anemia of 9.4. CMP with mild hypokalemia 3.1. BUN bumped at 21. Lactic elevated at 3.7. Transaminitis. Troponin elevated at 236, however baseline elevated in the 200s. BNP elevated at 3659, however much improved from prior values on chart review. EKG shows normal sinus rhythm at a rate of [address] and T wave abnormalities. Prolonged QT. No dysrhythmia. Urinalysis with no evidence of urinary tract infection. Urine culture sent. CT brain shows no acute findings, chronic changes. CTA of the chest abdomen pelvis shows bibasilar pulmonary consolidation. Small gallstones. Borderline splenomegaly. Retroperitoneal lymphadenopathy. Distal abdominal aorta with evidence of a aortic bi-iliac graft. Will further fluid resuscitate in correlation with sepsis protocol. Patient will be admitted for sepsis secondary to pneumonia. Clinical impression: Sepsis Bilateral pneumonia elevated lactate elevated troponin History & Record Review Discussion w/independent historian: EMS personnel Lab Data Attestation: I reviewed the patient's lab results. Labs: Laboratory Results - last 24 hr 03/10/25 03/10/25 03/10/25 13:28 13:29 13:40 WBC 11.6 H RBC 3.25 L Hgb 9.4 L Hct 29.9 L MCV 92.0 MCH 28.9 MCHC 31.4 L RDW Std Deviation 59.2 H RDW Coeff of Monika 18.0 H Plt Count 232 MPV 9.7 Neut % (Auto) Not Reportable Absolute Neuts (auto) 8.9 H Absolute Lymphs (auto) 0.50 L Total Counted 100 Neutrophils % (Manual) 71 H Band Neutrophils % 6 H Lymphocytes % (Manual) 4 L Monocytes % (Manual) 8 Basophils % (Manual) 1 Metamyelocytes % 7 H Myelocytes % 2 H Promyelocytes % 1 H Diff Path Review May foll Platelet Estimate ADEQUATE RBC Morphology NORM C+C PT 14.0 INR 1.1 APTT 35.3 Sodium 135 Potassium 3.1 L Chloride 92 L Carbon Dioxide 29.2 Anion Gap 13 BUN 21 H Creatinine 0.69 L Estim Creat Clear Calc 66.73 Est GFR (MDRD) Non-Af 98 BUN/Creatinine Ratio 30.7 H Glucose 122 H Lactic Acid 3.7 H* Calcium 8.0 Total Bilirubin 0.54 AST 121 H ALT 155 H Alkaline Phosphatase 198 H Troponin T High Sens 236 H* D NT pro BNP II 3659 H Total Protein 7.4 Albumin 3.6 Globulin 3.8 Albumin/Globulin Ratio 0.9 Urine Color Urine Clarity Urine pH Ur Specific [place] Urine Protein Urine Glucose (UA) Urine Ketones Urine Occult Blood Urine Nitrite Urine Bilirubin Urine Urobilinogen Ur Leukocyte Esterase Urine RBC Urine WBC Ur Squamous Epith Cells Calcium Oxalate Crystal Urine Bacteria Hyaline Casts Fine Granular Casts Urine Mucus 03/10/25 13:50 WBC RBC Hgb Hct MCV MCH MCHC RDW Std Deviation RDW Coeff of Monika Plt Count MPV Neut % (Auto) Absolute Neuts (auto) Absolute Lymphs (auto) Total Counted Neutrophils % (Manual) Band Neutrophils % Lymphocytes % (Manual) Monocytes % (Manual) Basophils % (Manual) Metamyelocytes % Myelocytes % Promyelocytes % Diff Path Review Platelet Estimate RBC Morphology PT INR APTT Sodium Potassium Chloride Carbon Dioxide Anion Gap BUN Creatinine Estim Creat Clear Calc Est GFR (MDRD) Non-Af BUN/Creatinine Ratio Glucose Lactic Acid Calcium Total Bilirubin AST ALT Alkaline Phosphatase Troponin T High Sens NT pro BNP II Total Protein Albumin Globulin Albumin/Globulin Ratio Urine Color Yellow Urine Clarity Clear Urine pH 6.0 Ur Specific [place] 1.010 Urine Protein 30 H Urine Glucose (UA) Normal Urine Ketones Negative Urine Occult Blood Negative Urine Nitrite Negative Urine Bilirubin Negative Urine Urobilinogen Normal Ur Leukocyte Esterase Negative Urine RBC 0-5 SEEN Urine WBC 0-5 SEEN Ur Squamous Epith Cells 0-5 SEEN Calcium Oxalate Crystal 3+ Urine Bacteria 0 SEEN Hyaline Casts 0-5 SEEN Fine Granular Casts 0-5 SEEN Urine Mucus 1+ ABG Data ABG results: ABG 03/10/25 13:52 Specimen Type ART Sample Site R Radial pH 7.64 H* Bicarbonate Actual 33.5 H Total CO2 35 Base Excess 13 H O2 Saturation 91 L O2 % 3.5 ABG pCO2 31.4 L ABG pO2 49 L Milad Test Positive O2 Delivery Device Cannula Vent Mode Not entered Crit Call To/Read Back Yes Radiography Diagnostic Testing: Clinical Impression(s) from Imaging Studies Brain CT 03/10/25 14:40 IMPRESSION: CHRONIC CHANGES. NO ACUTE FINDINGS. Reading Location: [facility] Chest/Abdomen/Pelvis CTA 03/10/25 14:40 IMPRESSION: Bibasilar pulmonary consolidation. Small gallstones. Borderline splenomegaly. Retroperitoneal lymphadenopathy. Distal abdominal aorta with evidence of a aortic bi-iliac graft. Reading Location: [facility] Discharge Plan Triage Chief Complaint: Hypotension ED Provider: Nori Kothari Dx/Rx/DC Orders Prescriptions: No Action cyclobenzaprine 5 mg tablet 5 mg PO Q8H PRN (Reason: MUSCLE SPASMS) acetaminophen 325 mg tablet 650 mg PO Q6H PRN (Reason: fever) guaifenesin 100 mg/5 mL liquid 200 mg PO PRN PRN (Reason: cough) Renal Vitamin 0.8 mg tablet 1 tab PO DAILY polyethylene glycol 3350 17 gram/dose powder 17 g PO QODAY Rx Instructions: EVERY OTHER DAY AT BED TIME ondansetron 4 mg tablet,disintegrating 4 mg PO DAILY PRN (Reason: nausea and vomiting) docusate sodium 100 mg tablet 100 mg PO PRN PRN (Reason: constipation) midodrine 10 mg tablet 10 mg PO DAILY PRN (Reason: for SBP lower than 110 during dialysis tx) Rx Instructions: for SBP lower than 110 during dialysis tx acetaminophen 650 mg suppository 650 mg NV Q3H PRN (Reason: fever or pain) Enema 19-7 gram/118 mL enema 118 ml NV DAILY PRN (Reason: constipation) Rx Instructions: NEEDED FOR CONSTIPATION FOR 2 EPISODES IF DULCOLAX SUPP INEFFECTIVE. CALL PHYSICIAN IF NO BM X4 DAYS albuterol sulfate 2.5 mg /3 mL (0.083 %) solution for nebulization 2.5 mg continuous nebulization Q8H PRN (Reason: shortness of breath or wheezing) Patient Comments: [NO ORIGINAL SIG] esomeprazole magnesium 40 mg capsule,delayed release(DR/EC) 40 mg PO DAILY gentamicin 0.1 % cream 1 applic topical DAILY mirtazapine 30 mg tablet 30 mg PO QHS furosemide 80 mg tablet 80 mg PO DAILY ferrous sulfate 325 mg (65 mg iron) tablet 325 mg PO DAILY sertraline 50 mg tablet 50 mg PO DAILY IV with Additives Nepro [Nepro Carb Steady] 1000 ML 40 mls/hr GT Ordered By: Glenn Munguia MD Last Taken: Unknown cefdinir 300 mg capsule 300 mg PO DAILY Qty: 4 0RF aspirin [Adult Aspirin Regimen] 81 mg tablet,delayed release (DR/EC) 81 mg PO DAILY atorvastatin 20 mg tablet 20 mg PO QHS metoprolol tartrate 25 mg tablet 25 mg PO BID thiamine HCl (vitamin B1) 100 mg tablet 100 mg PO BID amlodipine 5 mg tablet 5 mg PO QHS levothyroxine 200 mcg tablet 200 mcg PO DAILY sennosides-docusate sodium [Senna Plus] 8.6-50 mg tablet 1 tab-cap PO DAILY PRN (Reason: constipation) aluminum-magnesium hydroxide 200-200 mg/5 mL suspension 30 ml PO Q4H PRN (Reason: GI DISTRESS) bisacodyl 10 mg suppository 10 mg NV DAILY PRN (Reason: constipation) ascorbic acid (vitamin C) 500 mg Tablet 500 mg PO DAILY Qty: 0 0RF oxycodone 5 mg tablet 5 mg PO Q4H PRN (Reason: pain) ascorbic acid (vitamin C) [C-500] 500 mg tablet 500 mg PO QHS Primary Care Provider: Millie Massey Referrals: Millie Massey MD [Primary Care Provider, Geriatrics] Print Language: Persian
[2025-03-10] MEDS: 0.9% Normal Saline (500mL Bag) 500 ML IV (15:18)
[2025-03-10] MEDS: Doxycycline 100 MG in 0.9% Normal Saline (250mL Bag) 250 ML 250 MG IV (15:18)
[2025-03-10] MEDS: 0.9% Normal Saline (1000mL) 1,000 ML 1000 ML IV (15:57)
--- NOTE | 2025-03-10 15:59 | PCM.HP.STD ---
HPI - General General Date of Admission: 03/10/25 Date of Service: 03/10/25 Chief Complaint: Hypotension HPI Narrative SCOTT OBREGON, is a 64 F with a complex medical history and frequent admissions who presented to the emergency department on 03/10/2025 from her dialysis unit. On presentation the patient was found to be hypotensive and hypoxic. She had altered mental status on arrival but is known to our facility and has a complex past medical history. She does have known chronic hypoxic respiratory failure on 2 to 3 L at baseline but was requiring more oxygen as she was hypoxic on her baseline. EMS was called due to this. EMS found her hypotensive on arrival. Dialysis was not started at that time. She was placed on a nonrebreather prior to transfer and systolic blood pressures per the squad were in the 120s to 130s. Patient reported to me she has had an increase moist cough and fever and chills recently. She has no known sick contacts but is a resident of a local assisted. Her mobility is poor and she does have history of recurrent infections. Vital signs on presentation showed a temperature of 99.8 with a Tmax of 102.3, heart rate was 95, respiratory rate 16, blood pressure was 130/66 initially in the emergency department and sats were 92% on 4 L nasal cannula. CBC showed a leukocytosis with a white count 11.6 and a left shift at 71% with 6% bands. She is a chronic stable anemia with a hemoglobin of 9.4. Chemistry panel showed mild hypokalemia with a potassium of 3.1 lactic acid was 3.7, she did have mild transaminitis with an AST of 121 and ALT of 155 and alk phos of 193. Initial troponin was 236 and her proBNP was 3659. ABG was actually alkalotic with a pH of 7.64 with a pCO2 of 31.4 and a pO2 of 49. CT of the brain showed no acute findings.'s CTA of the chest abdomen pelvis showed bibasilar congestion/infiltrate, small gallstones, borderline splenomegaly, retroperitoneal lymphadenopathy and stable aortic bi-iliac graft. Patient was treated with 1 L of IV fluids given the fact that she has dialysis with stabilize blood pressure and antibiotics with azithromycin and ceftriaxone for pulmonary source. 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 Gross hematuria Retroperitoneal hematoma Constipation, unspecified Raynaud's syndrome without gangrene Hypo-osmolality and hyponatremia Hyperlipidemia, unspecified Hypothyroidism, unspecified Anemia, unspecified Need for assistance with personal care Other malaise Other abnormalities of gait and mobility Unsteadiness on feet Muscle weakness (generalized) Other symbolic dysfunctions Dysphagia, oropharyngeal phase Essential (primary) hypertension Activated protein C resistance Unspecified severe protein-calorie malnutrition Acute respiratory failure with hypoxia Emphysema, unspecified Peripheral vascular disease, unspecified Enterocolitis due to Clostridium difficile, not specified as recurrent Acute kidney failure, unspecified Leakage of aortic (bifurcation) graft (replacement), subsequent encounter Abdominal aortic aneurysm, ruptured, unspecified Home Medications ?Medication ?Instructions ?Recorded ?Last Taken ?Type aspirin 81 mg tablet,delayed 81 mg PO DAILY HEART 03/11/24 07/23/24 History release (Adult Aspirin Regimen) atorvastatin 20 mg tablet 20 mg PO QHS CHOLESTEROL 03/11/24 07/22/24 History metoprolol tartrate 25 mg tablet 25 mg PO BID HTN 03/11/24 07/22/24 History thiamine HCl (vitamin B1) 100 mg 100 mg PO BID SUPPLEMENT 04/11/24 07/23/24 History tablet cyclobenzaprine 5 mg tablet 5 mg PO Q8H PRN MUSCLE SPASMS 06/05/24 07/10/24 History acetaminophen 325 mg tablet 650 mg PO Q6H PRN fever 07/18/24 Unknown History aluminum-magnesium hydroxide 200 30 ml PO Q4H PRN GI DISTRESS 07/18/24 Unknown History mg-200 mg/5 mL oral suspension amlodipine 5 mg tablet 5 mg PO QHS HTN 07/18/24 07/22/24 History docusate sodium 100 mg tablet 100 mg PO PRN PRN constipation 07/18/24 Unknown History guaifenesin 100 mg/5 mL oral liquid 200 mg PO PRN PRN cough 07/18/24 07/14/24 History levothyroxine 200 mcg tablet 200 mcg PO DAILY THYROID 07/18/24 07/23/24 History midodrine 10 mg tablet 10 mg PO DAILY PRN for SBP lower 07/18/24 Unknown History than 110 during dialysis tx ondansetron 4 mg disintegrating 4 mg PO DAILY PRN nausea and 07/18/24 Unknown History tablet vomiting polyethylene glycol 3350 17 17 g PO QODAY CONSTIPATION 07/18/24 07/21/24 History gram/dose oral powder sennosides 8.6 mg-docusate sodium 1 tab-cap PO DAILY PRN constipation 07/18/24 Unknown History 50 mg tablet (Senna Plus) vitamin B complex-vitamin C-folic 1 tab PO DAILY SUPPLEMENT 07/18/24 07/23/24 History acid 0.8 mg tablet (Renal Vitamin) bisacodyl 10 mg rectal suppository 10 mg AR DAILY PRN constipation 07/31/24 Unknown History ascorbic acid (vitamin C) 500 mg 500 mg PO DAILY SUPPLEMENT #0 tabs 08/13/24 Unknown Rx tablet acetaminophen 650 mg rectal 650 mg AR Q3H PRN fever or pain 08/14/24 Unknown History suppository sodium phosphates 19 gram-7 118 ml AR DAILY PRN constipation 08/14/24 Unknown History gram/118 mL enema (Enema) albuterol sulfate 2.5 mg/3 mL 2.5 mg continuous nebulization Q8H 01/20/25 Unknown History (0.083 %) solution for nebulization PRN shortness of breath or wheezing esomeprazole magnesium 40 mg 40 mg PO DAILY GERD 01/20/25 Unknown History capsule,delayed release ferrous sulfate 325 mg (65 mg 325 mg PO DAILY SUPPLEMENT 01/20/25 Unknown History iron) tablet furosemide 80 mg tablet 80 mg PO DAILY edema or increased 01/20/25 Unknown History dyspnea gentamicin 0.1 % topical cream 1 applic topical DAILY LEFT TOE 01/20/25 Unknown History WOUND mirtazapine 30 mg tablet 30 mg PO QHS MOOD 01/20/25 Unknown History sertraline 50 mg tablet 50 mg PO DAILY MOOD 01/20/25 Unknown History IV with Additives 40 mls/hr GT 01/22/25 Unknown Rx cefdinir 300 mg capsule 300 mg PO DAILY INFECTION #4 caps 01/22/25 Unknown Rx oxycodone 5 mg tablet 5 mg PO Q4H PRN pain 02/28/25 Unknown History ascorbic acid (vitamin C) 500 mg 500 mg PO QHS SUPPLEMENT 03/10/25 Unknown History tablet (C-500) Allergy/AdvReac Type Severity Reaction Status Date / Time iodine Allergy Intermediate Nausea Verified 03/10/25 13:16 shellfish derived Allergy Intermediate Nausea Verified 03/10/25 13:16 Social History Smoking Status: Former smoker Tobacco: How many years used: 40 alcohol intake: former substance use type: does not use ROS Constitutional Constitutional: Reports anorexia, chills, fatigue, fever(s), malaise and weakness; Denies change in weight, night sweats or other Eyes Eyes: Denies blurry vision, change in eye color, change in vision, discharge from eye(s), double vision, erythema, eye pain, loss of vision or other ENT HEENT: Denies abnormal hearing, dysphagia, ear pain, epistaxis, headache(s), hearing loss, nasal congestion, nasal discharge, post nasal drip, sinus pressure, sore throat or other Cardiovascular Cardiovascular: Denies chest pain, claudication, dyspnea on exertion, edema, lightheadedness, orthopnea, palpitations, paroxysmal nocturnal dyspnea, rapid heart rate, syncope or other Respiratory/Chest Respiratory/Chest: Reports cough, dyspnea, excessive phlegm production, productive cough and shortness of breath at rest; Denies hemoptysis, shortness of breath with exertion, wheezing or other Gastrointestinal Gastrointestinal: Denies abdominal pain, coffee ground emesis, constipation, diarrhea, dyspepsia, hematemesis, hematochezia, loose stools, melena, nausea, vomiting or other Genitourinary Genitourinary: Denies burning urination, difficulty urinating, dysuria, hematuria, nocturia, urinary frequency, urinary hesitancy, urinary incontinence, urinary urgency or other Musculoskeletal Musculoskeletal: Denies arthralgias, back pain, joint pain, joint stiffness, joint swelling, myalgias, neck pain or other Neurologic Neurologic: Denies abnormal gait, abnormal speech, confusion, disequilibrium, dizziness, focal weakness, headache(s), numbness, paresthesias, seizure-like activity, seizures, syncope, tingling, tremor(s) or other Psychiatric Psychiatric: Reports depression; Denies anxiety, homicidal ideation, suicidal ideation or other Endocrine Endocrinology: Denies change in body appearance, cold intolerance, excessive sweating, heat intolerance, polydipsia, polyuria or other Hematologic/Lymphatic Hematologic/Lymphatic: Denies anemia, easy bleeding, easy bruising, lymphadenopathy or other Allergic/Immunologic Allergic/Immunologic: Denies rhinitis, hives, eczemia, asthma or other Vital Signs Vital Signs Vital Signs: 03/10/25 13:16 03/10/25 13:21 03/10/25 13:27 Temperature 99.8 F H 99.8 F H Temperature Source Oral Axillary Pulse Rate 95 93 Respiratory Rate 16 16 Respiratory Effort Short of Breath Respiratory Pattern Normal Blood Pressure 130/66 H 115/97 H Blood Pressure Mean 87 103 Pulse Ox 92 Oxygen Delivery Method Nasal Cannula Nasal Cannula Oxygen Flow Rate (L/min) 4 4 03/10/25 13:28 03/10/25 13:42 03/10/25 14:24 Temperature Temperature Source Pulse Rate 94 94 Respiratory Rate 20 H 20 H Respiratory Effort Respiratory Pattern Blood Pressure 116/83 H 146/79 H Blood Pressure Mean 94 101 Pulse Ox 98 96 Oxygen Delivery Method Nasal Cannula Nasal Cannula Nasal Cannula Oxygen Flow Rate (L/min) 4 4 3 03/10/25 14:24 03/10/25 15:00 Temperature 101.9 F H 102.3 F H Temperature Source Core Core Pulse Rate 95 97 Respiratory Rate 20 H 18 Respiratory Effort Respiratory Pattern Blood Pressure 146/79 H 128/56 H Blood Pressure Mean 101 80 Pulse Ox 100 100 Oxygen Delivery Method Nasal Cannula Nasal Cannula Oxygen Flow Rate (L/min) 3 3 Weight Weight: 50 kg Body Mass Index (BMI) 14.9 Physical Exam Const alert, oriented x3 and no apparent distress; Negative for average body habitus, healthy appearing or well nourished Constitutional Narrative: Extremely cachectic, upper middle-aged, white female who appears much older than stated age, sitting up in bed, not mentating well and alert and oriented x 4, appears ill but does not look toxic at this point General Appearance: cooperative Orientation / Consciousness: lethargic HEENT normocephalic, head/scalp atraumatic and hearing grossly normal bilaterally; Negative for moist oral mucous membranes HEENT Narrative: Dentition is poor, Mallampati is 1, severe temporal wasting bilaterally, no thrush, mucous membranes are dry Eyes EOMs intact bilaterally and conjunctivae normal Eyes Narrative: No scleral icterus Neck supple Neck Narrative: Trachea midline, no lymphadenopathy, no JVD Resp normal respiratory effort, no retractions, no use of accessory muscles and No clear to auscultation bilaterally Resp Narrative: Diminished diffusely and crackles at bilateral bases Auscultation: crackles; Negative for rhonchi or wheezes Cardio regular rate, regular rhythm, S1 normal heart sound, S2 normal heart sound, no murmurs, no rub, no gallops and no clicks GI normal to inspection, nondistended, normoactive bowel sounds, soft to palpation, non-tender and non-distended Extremity no clubbing, cyanosis or edema Extremity Narrative: Severe decreased lean muscle mass Skin Skin Narrative: Skin is dry and flaky, right tunneled dialysis catheter in place with dressing intact Neuro moves all extremities and no focal motor deficits Neuro Narrative: Severe generalized weakness lower extremity greater than upper extremity but no focal deficits Psych Psych Narrative: Affect flat and appropriate for current situation, makes good eye contact and interacts appropriately Results Lab / Micro Data 03/10/25 13:40 03/10/25 13:28 Labs: Laboratory Results - last 24 hr 03/10/25 13:28: Sodium 135, Potassium 3.1 L, Chloride 92 L, Carbon Dioxide 29.2, Anion Gap 13, BUN 21 H, Creatinine 0.69 L, Estim Creat Clear Calc 66.73, Est GFR (MDRD) Non-Af 98, BUN/Creatinine Ratio 30.7 H, Glucose 122 H, Calcium 8.0, Total Bilirubin 0.54, AST 121 H, ALT 155 H, Alkaline Phosphatase 198 H, Total Protein 7.4, Albumin 3.6, Globulin 3.8, Albumin/Globulin Ratio 0.9 03/10/25 13:29: Troponin T High Sens 236 H* D 03/10/25 13:40: WBC 11.6 H, RBC 3.25 L, Hgb 9.4 L, Hct 29.9 L, MCV 92.0, MCH 28.9, MCHC 31.4 L, RDW Std Deviation 59.2 H, RDW Coeff of Monika 18.0 H, Plt Count 232, MPV 9.7, Neut % (Auto) Not Reportable, Absolute Neuts (auto) 8.9 H, Absolute Lymphs (auto) 0.50 L, Total Counted 100, Neutrophils % (Manual) 71 H, Band Neutrophils % 6 H, Lymphocytes % (Manual) 4 L, Monocytes % (Manual) 8, Basophils % (Manual) 1, Metamyelocytes % 7 H, Myelocytes % 2 H, Promyelocytes % 1 H, Diff Path Review May , Platelet Estimate ADEQUATE, RBC Morphology NORM C+C, PT 14.0, INR 1.1, APTT 35.3, Lactic Acid 3.7 H*, NT pro BNP II 3659 H 03/10/25 13:50: Urine Color Yellow, Urine Clarity Clear, Urine pH 6.0, Ur Specific [place] 1.010, Urine Protein 30 H, Urine Glucose (UA) Normal, Urine Ketones Negative, Urine Occult Blood Negative, Urine Nitrite Negative, Urine Bilirubin Negative, Urine Urobilinogen Normal, Ur Leukocyte Esterase Negative, Urine RBC 0-5 SEEN, Urine WBC 0-5 SEEN, Ur Squamous Epith Cells 0-5 SEEN, Calcium Oxalate Crystal 3+, Urine Bacteria 0 SEEN, Hyaline Casts 0-5 SEEN, Fine Granular Casts 0-5 SEEN, Urine Mucus 1+ Micro: Microbiology 03/10/25 13:40 Mucosa - Nose SARS-CoV-2, Influenza & RSV (PCR) - Final ABG Data ABG results: ABG 03/10/25 13:52 Specimen Type ART Sample Site R Radial pH 7.64 H* Bicarbonate Actual 33.5 H Total CO2 35 Base Excess 13 H O2 Saturation 91 L O2 % 3.5 ABG pCO2 31.4 L ABG pO2 49 L Milad Test Positive O2 Delivery Device Cannula Vent Mode Not entered Crit Call To/Read Back Yes Imaging Radiology Impression Brain CT 03/10/25 14:40 IMPRESSION: CHRONIC CHANGES. NO ACUTE FINDINGS. Reading Location: [facility] Chest/Abdomen/Pelvis CTA 03/10/25 14:40 IMPRESSION: Bibasilar pulmonary consolidation. Small gallstones. Borderline splenomegaly. Retroperitoneal lymphadenopathy. Distal abdominal aorta with evidence of a aortic bi-iliac graft. Reading Location: [facility] Assessment & Plan Assessment/Plan (1) Sepsis: PLAN: Plan Sepsis secondary to suspected pneumonia - Patient markedly febrile with leukocytosis, hypotension at the dialysis center and worsening hypoxia - Has significant bandemia on differential - Patient typically on 2 L nasal cannula requiring 3 to 4 L nasal cannula - Imaging shows bibasilar infiltrates - Consult speech therapy - Cultures are pending - Continue antibiotics with ceftriaxone and azithromycin - Patient responded to IV fluids with improved blood pressure and mental status Acute hypoxia with chronic hypoxic respiratory failure - Patient on 2 L at baseline but requiring 3 to 4 L on arrival - Treatment as above - Cultures are pending - Wean oxygen as able Severe generalized weakness/debility - Patient's overall functional status is extremely poor - Patient with multiple hospitalizations and resides at [facility] - Consult palliative care for assistance with goals of care Severe malnutrition -Patient severely underweight with temporal wasting and markedly decreased lean muscle mass -PEG tube placed by gastroenterology on 07/24/2024 -Continue tube feeds and supplements -Dietitian consultation Leukocytosis -Trending down -No signs of infection -Suspect probably reactive from PEG tube placement Bilateral toe wounds with dry gangrene -Consult wound care Stage I sacral pressure ulcer -Continue preventative strategies for prevention of progressive wound - consult wound care End-stage renal disease on HD - This was a result of ATN from hemorrhagic shock - Continue Gutiérrez - Dialysis per nephrology Chronic anemia secondary to renal disease -Appears to be stable - Recent baseline looks to run between 9 and 10 - Continue to monitor History of factor V Leiden -Continue home aspirin GERD/GI bleed -Continue home PPI Essential hypertension -Hold antihypertensives except for metoprolol for now as patient was hypotensive on presentation Hypothyroidism -Continue home levothyroxine - Check a.m. TSH Depression -Continue home sertraline -Continue home mirtazapine Chronic constipation - Continue home bowel regimen History of C. difficile -No current symptoms DVT prophylaxis -SQ heparin twice daily CODE STATUS -Full code verified with her POA and patient on admission - Palliative care consultation to assist with goals of care conversations Sepsis Attestation Date exam was performed: 03/10/25 Time exam was performed: 16:08 Possible Source of Sepsis: Pulmonary Sepsis Organ Dysfunction Criteria Present: Lactic Acid > 2 mmol/L and New/Unexplained change in mental status Fluid Resuscitation Fluid Resuscitation ordered: Lesser volume fluid bolus ordered Amount of fluid ordered: 1,000 Reason for lesser fluid bolus:: Renal Failure (HD dependent and blood pressure responded) Charges/Coding Visit Charges Inpatient E&M: 31803 Init Hosp L3
[2025-03-10 16:22] LABS: Troponin T High Sens 2 HR 240 ng/L (<=14)
[2025-03-10 17:57] LABS: Reflex Lactate? Y
[2025-03-10] MEDS: Potassium Chloride Oral Tablet 20 MEQ 40 MEQ PO (19:15)
[2025-03-10] MEDS: 0.9% Saline Lock 10 ML Syringe IV (19:43)
[2025-03-10] MEDS: NEPRO 1,000 ML 40 ML GT (20:04)
[2025-03-10] MEDS: Thiamine Hydrochloride 100 MG Tablet PO (22:28)
[2025-03-10] MEDS: Heparin Injection (Vial) 5,000 UNIT/ML VIAL 5000 UNIT SC (22:29)
[2025-03-11] VITALS (16 sets, daily range): BP systolic 100–131; BP diastolic 56–68; PULSE 74–96; RESP 14–16; TEMP 36.7–37.1; O2SAT 93–100; BMI 15.2; BMI 14.3
[2025-03-11 05:59] LABS: Hematocrit 25.4 % (37-47); Hemoglobin 8.0 g/dL (12.0-15.0); Mean Corp Hgb Conc 31.5 g/dL (32-36); Mean Corpuscular Volume 93.0 fL (81-99); Mean Platelet Vol. 10.1 fl (6.2-12.0); POSITIVE COUNT YES; POSITIVE DIFFERENTIAL YES; POSITIVE MORPHOLOGY YES; Platelet Count 217 K/mm3 (150-450); RBC Distribution Width CV 18.5 % (11.6-14.6); RBC Distribution Width SD 61.2 fl (35.1-43.9); Red Blood Count 2.73 M/mm3 (4.2-5.4); White Blood Count 8.8 K/mm3 (4.4-11.0)
[2025-03-11 06:00] LABS: Differential Indicated MANUAL DIFF
[2025-03-11 06:22] LABS: Magnesium 1.7 mg/dL (1.5-2.2)
[2025-03-11 06:27] LABS: AST(SGOT) 106 U/L (<=31); Alanine Aminotransfer ALT/SGPT 128 U/L (<=34); Albumin, Serum 2.9 g/dL (3.4-4.8); Alkaline Phosphatase 129 U/L (35-104); Anion Gap 11 (5-15); BUN 41 mg/dL (4-19); BUN/Creat Ratio 33.5 RATIO (10-20); Calcium,Total 7.9 mg/dL (7.6-11.0); Carbon Dioxide 25.7 mmol/L (21.0-32.0); Chloride 98 mmol/L (98-108); Estimated Creatinine Clearance 38.49 ml/min (50-250); Globulin 3.1 g/dL (2.2-4.2); Glucose 100 mg/dL (70-99); Potassium 3.6 mmol/L (3.3-5.1)
--- NOTE | 2025-03-11 08:07 | PCM.CONS.P ---
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) Open abdominal wall wound Factor 5 Leiden mutation, heterozygous Failure to thrive [facility] (current) use of anticoagulants Gross hematuria Retroperitoneal hematoma Constipation, unspecified Raynaud's syndrome without gangrene Hypo-osmolality and hyponatremia Hyperlipidemia, unspecified Hypothyroidism, unspecified Anemia, unspecified Need for assistance with personal care Other malaise Other abnormalities of gait and mobility Unsteadiness on feet Muscle weakness (generalized) Other symbolic dysfunctions Dysphagia, oropharyngeal phase Essential (primary) hypertension Activated protein C resistance Unspecified severe protein-calorie malnutrition Acute respiratory failure with hypoxia Emphysema, unspecified Peripheral vascular disease, unspecified Enterocolitis due to Clostridium difficile, not specified as recurrent Acute kidney failure, unspecified Leakage of aortic (bifurcation) graft (replacement), subsequent encounter Abdominal aortic aneurysm, ruptured, unspecified Home Medications ?Medication ?Instructions ?Recorded ?Last Taken ?Type aspirin 81 mg tablet,delayed 81 mg PO DAILY HEART 03/11/24 07/23/24 History release (Adult Aspirin Regimen) atorvastatin 20 mg tablet 20 mg PO QHS CHOLESTEROL 03/11/24 07/22/24 History metoprolol tartrate 25 mg tablet 25 mg PO BID HTN 03/11/24 07/22/24 History thiamine HCl (vitamin B1) 100 mg 100 mg PO BID SUPPLEMENT 04/11/24 07/23/24 History tablet cyclobenzaprine 5 mg tablet 5 mg PO Q8H PRN MUSCLE SPASMS 06/05/24 07/10/24 History acetaminophen 325 mg tablet 650 mg PO Q6H PRN fever 07/18/24 Unknown History aluminum-magnesium hydroxide 200 30 ml PO Q4H PRN GI DISTRESS 07/18/24 Unknown History mg-200 mg/5 mL oral suspension amlodipine 5 mg tablet 5 mg PO QHS HTN 07/18/24 07/22/24 History docusate sodium 100 mg tablet 100 mg PO PRN PRN constipation 07/18/24 Unknown History guaifenesin 100 mg/5 mL oral liquid 200 mg PO PRN PRN cough 07/18/24 07/14/24 History levothyroxine 200 mcg tablet 200 mcg PO DAILY THYROID 07/18/24 07/23/24 History midodrine 10 mg tablet 10 mg PO DAILY PRN for SBP lower 07/18/24 Unknown History than 110 during dialysis tx ondansetron 4 mg disintegrating 4 mg PO DAILY PRN nausea and 07/18/24 Unknown History tablet vomiting polyethylene glycol 3350 17 17 g PO QODAY CONSTIPATION 07/18/24 07/21/24 History gram/dose oral powder sennosides 8.6 mg-docusate sodium 1 tab-cap PO DAILY PRN constipation 07/18/24 Unknown History 50 mg tablet (Senna Plus) vitamin B complex-vitamin C-folic 1 tab PO DAILY SUPPLEMENT 07/18/24 07/23/24 History acid 0.8 mg tablet (Renal Vitamin) bisacodyl 10 mg rectal suppository 10 mg ID DAILY PRN constipation 07/31/24 Unknown History ascorbic acid (vitamin C) 500 mg 500 mg PO DAILY SUPPLEMENT #0 tabs 08/13/24 Unknown Rx tablet acetaminophen 650 mg rectal 650 mg ID Q3H PRN fever or pain 08/14/24 Unknown History suppository sodium phosphates 19 gram-7 118 ml ID DAILY PRN constipation 08/14/24 Unknown History gram/118 mL enema (Enema) albuterol sulfate 2.5 mg/3 mL 2.5 mg continuous nebulization Q8H 01/20/25 Unknown History (0.083 %) solution for nebulization PRN shortness of breath or wheezing esomeprazole magnesium 40 mg 40 mg PO DAILY GERD 01/20/25 Unknown History capsule,delayed release ferrous sulfate 325 mg (65 mg 325 mg PO DAILY SUPPLEMENT 01/20/25 Unknown History iron) tablet furosemide 80 mg tablet 80 mg PO DAILY edema or increased 01/20/25 Unknown History dyspnea gentamicin 0.1 % topical cream 1 applic topical DAILY LEFT TOE 01/20/25 Unknown History WOUND mirtazapine 30 mg tablet 30 mg PO QHS MOOD 01/20/25 Unknown History sertraline 50 mg tablet 50 mg PO DAILY MOOD 01/20/25 Unknown History IV with Additives 40 mls/hr GT 01/22/25 Unknown Rx cefdinir 300 mg capsule 300 mg PO DAILY INFECTION #4 caps 01/22/25 Unknown Rx oxycodone 5 mg tablet 5 mg PO Q4H PRN pain 02/28/25 Unknown History ascorbic acid (vitamin C) 500 mg 500 mg PO QHS SUPPLEMENT 03/10/25 Unknown History tablet (C-500) Allergy/AdvReac Type Severity Reaction Status Date / Time iodine Allergy Intermediate Nausea Verified 03/10/25 13:16 shellfish derived Allergy Intermediate Nausea Verified 03/10/25 13:16 Social History Smoking Status: Former smoker Tobacco: How many years used: 40 alcohol intake: former substance use type: does not use ROS Constitutional Constitutional: Reports anorexia, weakness and weight loss Eyes Eyes: Reports systems reviewed and no addt'l complaints, except as documented ENT HEENT: Reports systems reviewed and no addt'l complaints, except as documented Cardiovascular Cardiovascular: Reports dyspnea, dyspnea at rest and fatigue Respiratory/Chest Respiratory/Chest: Reports chest congestion, cough, dyspnea, dyspnea on exertion, excessive phlegm production, shortness of breath at rest and shortness of breath with exertion Gastrointestinal Gastrointestinal: Reports abdominal pain Genitourinary Genitourinary: Reports systems reviewed and no addt'l complaints, except as documented Musculoskeletal Musculoskeletal: Reports other Details: debility Integumentary Integumentary: Reports systems reviewed and no addt'l complaints, except as documented Neurologic Neurologic: Reports systems reviewed and no addt'l complaints, except as documented Psychiatric Psychiatric: Reports depression Endocrine Endocrinology: Reports systems reviewed and no addt'l complaints, except as documented Hematologic/Lymphatic Hematologic/Lymphatic: Reports anemia Allergic/Immunologic Allergic/Immunologic: Reports systems reviewed and no addt'l complaints, except as documented and as per HPI Physical Exam Const alert and oriented x3 Constitutional Narrative: Patient is cachectic in appearance with temporal muscle wasting as well as decreasing muscle mass. She is extremely deconditioned. General Appearance: cooperative HEENT normocephalic Resp Effort and Inspection: uses accessory muscles Auscultation: crackles, wheezes and diminished lung sounds Cardio regular rate, S1 normal heart sound and S2 normal heart sound GI GI Narrative: PEG tube with continuous feedings. Inspection: abdominal distention Palpation: tender other (gas pains ) Extremity normal capillary refill Skin no rashes or lesions noted Skin Narrative: Difficult to assess skin as patient is bundled up in multiple layers of blankets. Neuro Neuro Narrative: Patient is bedbound at baseline and requires Denise lift to get out of bed. Speech: speech normal Psych Psych Narrative: Flat affect noted Mood & Affect: flat affect Charges/Coding Palliative Care Palliative Care: 33341 New Pt Consult 80+ min HPI Current admission Current Code Status: DNRCC-A with intubation Associated Diagnosis: ESRD, sepsis, PNA Consult Data Date of Consult: 03/11/25 Location of consult: PCU Reason for referral: GOC, code status Referral source: physician Palliative care diagnosis (Summary list): sepsis, FTT Palliative care services/treatment (Accepted, as consult): accepted Case discussed with referring provider: GOC HPI Narrative HPI Narrative: PAIN ASSESSMENT Location: [ abdomen] Quality: cramping [ ] Severity/Quantity: [01/05 ] Timing/Frequency: [ intermittent ] Context: [ ] Factors that make it better/worse: [order placed for Mylicon drops ] Associated signs & symptoms: [belching ] Prior to meeting with the pt at bedside, I reviewed previous visit documentation, discussion with SW, review of labs and radiological studies. I then met with SCOTT OBREGON at bedside. She is very cachectic in appearance and presents much older than her reported 64 years. She is wrapped in multiple layers of blankets and is currently receiving HD dialysis. She is FTT and has a PEG feeding tube. I introduced myself and the concept of palliative care in which she voluntarily excepted our services. CT did state I think that I have talked to palliative before and we decided not to use the services. I did attempt to explain what palliative care is and she states that she would like to have her sister present for any further conversations. I did reach out to the patient's sister in which we have set up a meeting today at 1300. I was able to complete my ROS and physical assessment. 1300: Family meeting with the pt, sister Janette, sister Tyra on the phone, pt, myself and Diamond RUSSELL. We discussed goals of care going forward. Scott states that her ultimate goal is to get stronger and to return home. I did explain to Scott that she has been in bed for an extended amount of time. Sister Janette ([facility]) stated that she knew someone that was told she would never walk again and is now walking. I did talk to Scott earlier today in which she stated that she would refuse to get out of bed because she doesnt like the Denise. I did expalin that the Denise is needed for safety of staff and patient both. Shannon stated that she has helped Scott the most by moving her legs in bed and now she can lift her legs. Scott wants to get up to a chair but I did explain the need to use a denise and she did agree to the use of the denise going forward if it means getting her out of the bed. Sisterfito wants her to be able to work in the bed to build strength before attempting to get her out of bed and force the denise on her. Sisterfito and Scott are requesting the possibility of changing facilities in which Diamond is getting a list of private pay referrals to be closer to Scott. They like [facility] in [place] and [facility]. We also discussed code status in which the pt stated no CPR but yes to intubation. Pt signed the DNRCC-A with intubation form. is in agreement. Scott was complaining of abdominal discomfort and profound exhaustion. I did update Dr. Rogers and I was able to place an order for Mylicon tablets. I did note that Dr. Kessler ordered PT/OT/ST yesterday. Pending assessment and eval. Lastly we had and extensive discussion about outpatient palliative care services, which the pt states that she would like to think about it. The patients sister was an immediate no and stating that it is one step closer to dying. Myself and Diamond did spend an extensive amount of time explaining what Palliative care does and how it can help Scott to be an extra layer of support for her and well as being an advocate for her well being. did soften to the fact slightly, but continues to refuse the outpatient service but is open to inpatient services. All questions answered. Palliative care will continue to follow for goals of care conversation as clinical picture evolves. per Dr. Kessler: SCOTT OBREGON, is a 64 F with a complex medical history and frequent admissions who presented to the emergency department on 03/10/2025 from her dialysis unit. On presentation the patient was found to be hypotensive and hypoxic. She had altered mental status on arrival but is known to our facility and has a complex past medical history. She does have known chronic hypoxic respiratory failure on 2 to 3 L at baseline but was requiring more oxygen as she was hypoxic on her baseline. EMS was called due to this. EMS found her hypotensive on arrival. Dialysis was not started at that time. She was placed on a nonrebreather prior to transfer and systolic blood pressures per the squad were in the 120s to 130s. Patient reported to me she has had an increase moist cough and fever and chills recently. She has no known sick contacts but is a resident of a local long-term. Her mobility is poor and she does have history of recurrent infections. Vital signs on presentation showed a temperature of 99.8 with a Tmax of 102.3, heart rate was 95, respiratory rate 16, blood pressure was 130/66 initially in the emergency department and sats were 92% on 4 L nasal cannula. CBC showed a leukocytosis with a white count 11.6 and a left shift at 71% with 6% bands. She is a chronic stable anemia with a hemoglobin of 9.4. Chemistry panel showed mild hypokalemia with a potassium of 3.1 lactic acid was 3.7, she did have mild transaminitis with an AST of 121 and ALT of 155 and alk phos of 193. Initial troponin was 236 and her proBNP was 3659. ABG was actually alkalotic with a pH of 7.64 with a pCO2 of 31.4 and a pO2 of 49. CT of the brain showed no acute findings.'s CTA of the chest abdomen pelvis showed bibasilar congestion/infiltrate, small gallstones, borderline splenomegaly, retroperitoneal lymphadenopathy and stable aortic bi-iliac graft. Patient was treated with 1 L of IV fluids given the fact that she has dialysis with stabilize blood pressure and antibiotics with azithromycin and ceftriaxone for pulmonary source. Palliative Assessment Advanced Directive - Current Admission Advance Directive: Advance Directive ON ADMISSION - REFERENCE Do you have a Healthcare Yes 03/10/25 17:45 Living Will? Is a Healthcare Living Will Yes, paper copy provided 03/10/25 17:45 present in the medical record? Do you have a Healthcare Power Yes 03/10/25 17:45 of Research Management Associate? Is a Healthcare Power of Yes, paper copy provided 03/10/25 17:45 Research Management Associate present in the medical rec Name of Medical Power shannon bhatia 03/10/25 17:45 Research Management Associate Do You Want Additional Declined 03/10/25 17:45 Information on Advanced Directives or Healthcare Proxy/DPOA comments: Sister Janette Barrow Psychosocial/Spiritual Information Living situation/Marital status: lives in [facility] Geographic location: [place] Supports: family Druze/Cherri or spiritual preference: [place] Spiritual distress: denies Prior functional status: bed bound at baseline with use of denise to get out of bed Assistive devices at home: denise/wc Cultrual issues: none identified Information about the patient as a person: If its nice weather. I like to be by a pool or out in the garden Otherwise I would just putter around the house. At the care facility she prefers to stay in bed because she doesnt like the denise lift. Likes to eat good food. Most food doesnt taste good in facilities. Symptoms Palliative performance scale: 20% Palliative prognostic index: 10.0 (if the PPI is >6.0, survival is < 3 weeks.) Dyspnea symptoms: Moderate Nausea symptoms: Moderate Vomiting symptoms: None Anorexia symptoms: Severe Cough symptoms: Moderate Insomnia symptoms: Mild Fatigue symptoms: Severe Weakness symptoms: Severe Confusion symptoms: None Objective Data Objective Data Vital Signs: Vital Signs Temp Pulse Resp BP Pulse Ox O2 Del Method O2 Flow Rate 98.8 F 87 16 131/63 H 97 Nasal Cannula 3 03/11/25 06:05 03/11/25 06:05 03/11/25 06:05 03/11/25 06:05 03/11/25 06:05 03/11/25 06:05 03/11/25 06:05 Oxygen Flow Rate (L/min) 3 Oxygen Delivery Method Nasal Cannula Weight: 112 lb 6.972 oz Body Mass Index (BMI) 15.2 Intake & Output: Intake and Output for Last 24 Hours 03/09/25 03/10/25 03/11/25 23:59 23:59 23:59 Intake Total 1999 / 1999 100 / 100 Output Total 150 / 150 100 / 100 Balance 1850 / 1850 0 / 0 Lab / Micro Data Attestation: I reviewed the patient's lab results. Lab results narrative: Patient with slight improvement in her liver functions and AST of 106 from 129, ALT of 128 from 155 and alkaline phosphate of 129 from 128. kidney function with a BUN of 41, creatinine of 1.22 and a GFR of 50 but patient is receiving HD dialysis currently. Hemoglobin did go from 9.4 down to 8.0 with an improvement of her leukocytosis with WBCs at 8.8. She did have elevated troponins up to 236 and 240 which may be cardiorenal. BNP is elevated at 3659. 03/11/25 05:00 03/11/25 05:00 Labs: Laboratory Results - last 24 hr 03/10/25 13:28: Sodium 135, Potassium 3.1 L, Chloride 92 L, Carbon Dioxide 29.2, Anion Gap 13, BUN 21 H, Creatinine 0.69 L, Estim Creat Clear Calc 66.73, Est GFR (MDRD) Non-Af 98, BUN/Creatinine Ratio 30.7 H, Glucose 122 H, Calcium 8.0, Total Bilirubin 0.54, AST 121 H, ALT 155 H, Alkaline Phosphatase 198 H, Total Protein 7.4, Albumin 3.6, Globulin 3.8, Albumin/Globulin Ratio 0.9 03/10/25 13:29: Troponin T High Sens 236 H* D 03/10/25 13:40: WBC 11.6 H, RBC 3.25 L, Hgb 9.4 L, Hct 29.9 L, MCV 92.0, MCH 28.9, MCHC 31.4 L, RDW Std Deviation 59.2 H, RDW Coeff of Monika 18.0 H, Plt Count 232, MPV 9.7, Neut % (Auto) Not Reportable, Absolute Neuts (auto) 8.9 H, Absolute Lymphs (auto) 0.50 L, Total Counted 100, Neutrophils % (Manual) 71 H, Band Neutrophils % 6 H, Lymphocytes % (Manual) 4 L, Monocytes % (Manual) 8, Basophils % (Manual) 1, Metamyelocytes % 7 H, Myelocytes % 2 H, Promyelocytes % 1 H, Diff Path Review May , Platelet Estimate ADEQUATE, RBC Morphology NORM C+C, PT 14.0, INR 1.1, APTT 35.3, Lactic Acid 3.7 H*, NT pro BNP II 3659 H 03/10/25 13:50: Urine Color Yellow, Urine Clarity Clear, Urine pH 6.0, Ur Specific [place] 1.010, Urine Protein 30 H, Urine Glucose (UA) Normal, Urine Ketones Negative, Urine Occult Blood Negative, Urine Nitrite Negative, Urine Bilirubin Negative, Urine Urobilinogen Normal, Ur Leukocyte Esterase Negative, Urine RBC 0-5 SEEN, Urine WBC 0-5 SEEN, Ur Squamous Epith Cells 0-5 SEEN, Calcium Oxalate Crystal 3+, Urine Bacteria 0 SEEN, Hyaline Casts 0-5 SEEN, Fine Granular Casts 0-5 SEEN, Urine Mucus 1+ 03/10/25 15:50: Troponin T Hi Sens 2 Hr 240 H* 03/10/25 18:20: Lactic Acid 1.3 03/11/25 05:00: WBC 8.8, RBC 2.73 L, Hgb 8.0 L, Hct 25.4 L, MCV 93.0, MCH 29.3, MCHC 31.5 L, RDW Std Deviation 61.2 H, RDW Coeff of Monika 18.5 H, Plt Count 217, MPV 10.1, Neut % (Auto) Not Reportable, Sodium 134, Potassium 3.6, Chloride 98, Carbon Dioxide 25.7, Anion Gap 11, BUN 41 H, Creatinine 1.22 H, Estim Creat Clear Calc 38.49 L, Est GFR (MDRD) Non-Af 50 L, BUN/Creatinine Ratio 33.5 H, Glucose 100 H, Calcium 7.9, Phosphorus 3.2, Magnesium 1.7, Total Bilirubin 0.31, AST 106 H, ALT 128 H, Alkaline Phosphatase 129 H, Total Protein 6.0, Albumin 2.9 L, Globulin 3.1, Albumin/Globulin Ratio 0.9, TSH 8.500 H Micro: Microbiology 03/10/25 13:40 Mucosa - Nose SARS-CoV-2, Influenza & RSV (PCR) - Final ABG Data ABG results: ABG 03/10/25 13:52 Specimen Type ART Sample Site R Radial pH 7.64 H* Bicarbonate Actual 33.5 H Total CO2 35 Base Excess 13 H O2 Saturation 91 L O2 % 3.5 ABG pCO2 31.4 L ABG pO2 49 L Milad Test Positive O2 Delivery Device Cannula Vent Mode Not entered Crit Call To/Read Back Yes Radiography Diagnostic Testing: Radiology Impression Brain CT 03/10/25 14:40 IMPRESSION: CHRONIC CHANGES. NO ACUTE FINDINGS. Reading Location: [facility] Chest/Abdomen/Pelvis CTA 03/10/25 14:40 IMPRESSION: Bibasilar pulmonary consolidation. Small gallstones. Borderline splenomegaly. Retroperitoneal lymphadenopathy. Distal abdominal aorta with evidence of a aortic bi-iliac graft. Reading Location: [facility] Rhythm Strip Rhythm Strip: Sinus Rhythm Impressions & Recommendations Patient & Family Issues discussed with the patient and family: Goals of care and CODE STATUS Ethical & Legal Ethical and legal: I do feel that the patient and sister may lack insight into the patient's recoverability from chronic issues. Impressions Impressions: Patient could be a hospice candidate if she chose to discontinue aggressive medical management. Recommentation Palliative recommendations: Minimal recommendation of palliative care on outpatient basis. Encouter Achieved as a result of this Palliative Care Encounter: [ [id number], [id number], [id number]] minutes were spent in total for this visit which consisted, primarily of counseling and education dealing with the complex and emotionally intense issues of symptom management and palliative care in the setting of serious and potentially life-threatening illness. Review of documentation, labs and radiological studies. ?Patient/family had the opportunity to ask questions Plan (1) Sepsis: PLAN: Medical management per IDT (2) Pleural effusion: PLAN: Medical management per IDT (3) Anasarca: PLAN: Medical management per IDT (4) Pulmonary edema: PLAN: Medical management per IDT (5) PEG (percutaneous endoscopic gastrostomy) status: PLAN: Current continuous tube feed (6) Urinary tract infection: PLAN: Medical management per IDT (7) Hypoglycemia: PLAN: Medical management per IDT (8) Chronic kidney disease with end stage renal 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: PLAN: Patient currently receiving dialysis (9) Factor V Leiden: (10) Palliative care encounter: PLAN: *Plan to meet with patient's POA and the patient in her room today per patient request *family meeting and pt is wanting referrals to new facility. *changed to DNRCC-A with intubation (11) Goals of care, counseling/discussion: PLAN: *worked on goal of care and pt untlimate goals is to get strong enough to return home *short term goal is to work on core strength *sit up in chair *agreeable to denise if needed to get up to chair. *states understanding of the need to work with PT/OT
--- NOTE | 2025-03-11 08:11 | PCM.PN.HOSP ---
Reason for Visit Chief Complaint: Hypotension Subjective Subjective Patient is a 64-year-old lady who was sent from the dialysis center with altered mental status as well as hypotension Objective Data Objective Data Vital Signs: Vital Signs Temp Pulse Resp BP Pulse Ox O2 Del Method O2 Flow Rate 98.8 F 87 16 131/63 H 97 Nasal Cannula 3 03/11/25 06:05 03/11/25 06:05 03/11/25 06:05 03/11/25 06:05 03/11/25 06:05 03/11/25 06:05 03/11/25 06:05 Oxygen Flow Rate (L/min) 3 Oxygen Delivery Method Nasal Cannula Weight: 51 kg Body Mass Index (BMI) 15.2 Intake & Output: Intake and Output for Last 24 Hours 03/09/25 03/10/25 03/11/25 23:59 23:59 23:59 Intake Total 1999 / 1999 100 / 100 Output Total 150 / 150 100 / 100 Balance 1850 / 1850 0 / 0 Lab / Micro Data 03/11/25 05:00 03/11/25 05:00 Labs: Laboratory Results - last 24 hr 03/10/25 13:28: Sodium 135, Potassium 3.1 L, Chloride 92 L, Carbon Dioxide 29.2, Anion Gap 13, BUN 21 H, Creatinine 0.69 L, Estim Creat Clear Calc 66.73, Est GFR (MDRD) Non-Af 98, BUN/Creatinine Ratio 30.7 H, Glucose 122 H, Calcium 8.0, Total Bilirubin 0.54, AST 121 H, ALT 155 H, Alkaline Phosphatase 198 H, Total Protein 7.4, Albumin 3.6, Globulin 3.8, Albumin/Globulin Ratio 0.9 03/10/25 13:29: Troponin T High Sens 236 H* D 03/10/25 13:40: WBC 11.6 H, RBC 3.25 L, Hgb 9.4 L, Hct 29.9 L, MCV 92.0, MCH 28.9, MCHC 31.4 L, RDW Std Deviation 59.2 H, RDW Coeff of Monika 18.0 H, Plt Count 232, MPV 9.7, Neut % (Auto) Not Reportable, Absolute Neuts (auto) 8.9 H, Absolute Lymphs (auto) 0.50 L, Total Counted 100, Neutrophils % (Manual) 71 H, Band Neutrophils % 6 H, Lymphocytes % (Manual) 4 L, Monocytes % (Manual) 8, Basophils % (Manual) 1, Metamyelocytes % 7 H, Myelocytes % 2 H, Promyelocytes % 1 H, Diff Path Review September, Platelet Estimate ADEQUATE, RBC Morphology NORM C+C, PT 14.0, INR 1.1, APTT 35.3, Lactic Acid 3.7 H*, NT pro BNP II 3659 H 03/10/25 13:50: Urine Color Yellow, Urine Clarity Clear, Urine pH 6.0, Ur Specific [place] 1.010, Urine Protein 30 H, Urine Glucose (UA) Normal, Urine Ketones Negative, Urine Occult Blood Negative, Urine Nitrite Negative, Urine Bilirubin Negative, Urine Urobilinogen Normal, Ur Leukocyte Esterase Negative, Urine RBC 0-5 SEEN, Urine WBC 0-5 SEEN, Ur Squamous Epith Cells 0-5 SEEN, Calcium Oxalate Crystal 3+, Urine Bacteria 0 SEEN, Hyaline Casts 0-5 SEEN, Fine Granular Casts 0-5 SEEN, Urine Mucus 1+ 03/10/25 15:50: Troponin T Hi Sens 2 Hr 240 H* 03/10/25 18:20: Lactic Acid 1.3 03/11/25 05:00: WBC 8.8, RBC 2.73 L, Hgb 8.0 L, Hct 25.4 L, MCV 93.0, MCH 29.3, MCHC 31.5 L, RDW Std Deviation 61.2 H, RDW Coeff of Monika 18.5 H, Plt Count 217, MPV 10.1, Neut % (Auto) Not Reportable, Sodium 134, Potassium 3.6, Chloride 98, Carbon Dioxide 25.7, Anion Gap 11, BUN 41 H, Creatinine 1.22 H, Estim Creat Clear Calc 38.49 L, Est GFR (MDRD) Non-Af 50 L, BUN/Creatinine Ratio 33.5 H, Glucose 100 H, Calcium 7.9, Phosphorus 3.2, Magnesium 1.7, Total Bilirubin 0.31, AST 106 H, ALT 128 H, Alkaline Phosphatase 129 H, Total Protein 6.0, Albumin 2.9 L, Globulin 3.1, Albumin/Globulin Ratio 0.9, TSH 8.500 H Micro: Microbiology 03/10/25 13:40 Mucosa - Nose SARS-CoV-2, Influenza & RSV (PCR) - Final ABG Data ABG results: ABG 03/10/25 13:52 Specimen Type ART Sample Site R Radial pH 7.64 H* Bicarbonate Actual 33.5 H Total CO2 35 Base Excess 13 H O2 Saturation 91 L O2 % 3.5 ABG pCO2 31.4 L ABG pO2 49 L Milad Test Positive O2 Delivery Device Cannula Vent Mode Not entered Crit Call To/Read Back Yes Radiography Diagnostic Testing: Radiology Impression Brain CT 03/10/25 14:40 IMPRESSION: CHRONIC CHANGES. NO ACUTE FINDINGS. Reading Location: [facility] Chest/Abdomen/Pelvis CTA 03/10/25 14:40 IMPRESSION: Bibasilar pulmonary consolidation. Small gallstones. Borderline splenomegaly. Retroperitoneal lymphadenopathy. Distal abdominal aorta with evidence of a aortic bi-iliac graft. Reading Location: [place] [id number] Physical Exam Narrative GENERAL: cooperative HEENT: Atraumatic; normocephalic EYES; Anicteric, Normal Conjunctiva NECK; supple, normal thyroid, RESPIRATORY: Diminished to auscultation CARDIOVASCULAR: Regular S1 S2, GI: soft, normoactive bowel sounds, : No Renal angle tenderness; EXTREMITIES: No edema, no clubbing, MUSCULOSKELETAL: Dry gangrene involving both NEURO: Awake; no lateralizing signs. SKIN: No Rash PSYCH; Flat affect Assessment & Plan Assessment/Plan (1) Sepsis: PLAN: Plan Patient is a 64-year-old lady who was sent from the dialysis center with altered mental status as well as hypotension. Imaging studies obtained on admission demonstrated bibasilar pulmonary consolidation consistent with pneumonia diagnosis of sepsis made treatment initiated per protocol admitted to monitored bed for further management 1. Sepsis secondary to pneumonia ? Patient admitted to a monitored bed treatment initiated per protocol with IV fluids, blood cultures sent, as well as broad-spectrum antibiotic therapy with ceftriaxone and azithromycin 2. Acute metabolic encephalopathy ? Secondary to above 3. Physical deconditioning ? Requested for PT OT eval and child welfare social worker to assist with discharge planning 4. End-stage renal disease ? Patient is on hemodialysis. Consult placed to nephrology 5. Severe malnutrition -Patient severely underweight with temporal wasting and markedly decreased lean muscle mass patient underwent PEG tube placement by MATTIE on 07/24/2024 consult was placed to dietitian on admission 6. Chronic hypoxic respiratory failure ? Patient is on baseline home oxygen 2 L at rest did require up to 4 L on admission 7. Bilateral toe wounds with dry gangrene/stage I sacral pressure ulcer ? Consult placed wound care nurse 8. Anemia ? Secondary to chronic disorder monitoring H&H and transfuse if patient becomes symptomatic or hemoglobin falls below 7 9. History of factor V Leyden mutation ? Remains stable 10. Hypertension ? Blood pressure controlled, home medications continued with dose adjustment as needed 11. GERD ? Patient is on PPI 12. Hypothyroidism ? Patient is on levothyroxine home dose continued 13. Depression with anxiety ? Patient is on sertraline and mirtazapine did continue with home dose 14. Chronic constipation ? Did continue with patient home bowel regimen 15. DVT prophylaxis ? Subcu heparin Time spent in the patient's overall evaluation,decision-making process, review of diagnostic data, adjustment of management, discussion with other providers, nursing nursing and ancillary staff involved in patient's care documentation, 50 Minutes Charges/Coding Visit Charges Inpatient E&M: [id number] [facility] L3
[2025-03-11 08:41] LABS: Neutrophil-Band 7 % (0-5); Neutrophil-Segmented 83 % (47-70); Red Cell Morphology NORM C+C NORMAL (NORM C&C); Total Cells Counted 100 (MANUAL DIFF)
[2025-03-11] MEDS: PureFlow B 3K Dialysis Soln 1 BAG 6 BAG PF (09:25)
[2025-03-11] MEDS: 0.9% Normal Saline 1,000 ML IV.SOLN. 1000 ML OPERA.SITE (09:25)
[2025-03-11] MEDS: 0.9% Saline Lock 10 ML Syringe IV ×2 (09:25→12:56)
--- NOTE | 2025-03-11 10:27 | PCM.CONS.R ---
Assessment & Plan Assessment/Plan (1) End stage renal disease: (2) Anemia of chronic disease: PLAN: Plan This is a 64-year-old female with past medical history significant for ESRD on hemodialysis Monday and Monday who was admitted to the hospital for sepsis probable secondary to pneumonia. Nephrology consulted as patient has history of ESRD and for dialysis management. Patient undergoing hemodialysis today and attempting fluid removal as patient/blood pressure tolerates. Outpatient EDW had been around 47 kg, yesterday's weight was 49 kg, previous EDW end of January to first week of February was around 46 kg. Will attempt fluid removal as patient/blood pressure tolerates and likely patient will have a new slightly lowered EDW by time of hospital discharge. Patient is on O2 3 to 4 L nasal cannula. Patient has anemia of chronic disease, will monitor hemoglobin trends. She receives DENISE and iron at kidney center. Patient has history of intradialytic hypotension and receives midodrine. We will continue giving midodrine at start of dialysis and also during dialysis as needed for hypotension. Palliative care has been consulted for goals of care. Further orders forthcoming as hospitalization evolves, thank you for allowing us to participate in the care of Ms. Obregon. Assessment and plan reviewed with Dr. Torres. HPI Consult Data Date of Consult: 03/11/25 HPI Narrative HPI Narrative: SCOTT OBREGON, is a 64 F who presented to the emergency room yesterday from the dialysis unit for evaluation of hypotension, shortness of breath at the dialysis unit. In the emergency room workup consistent with probable pneumonia, patient's blood pressure in the ER 130/66, O2 sats 92% on 4 L nasal cannula, white count 11.6. Patient had CT of brain which did not show any acute findings. CT of chest, abdomen, pelvis showed bibasilar congestion/infiltrate. Patient was admitted for further evaluation and treatment. Nephrology consulted as patient has history of ESRD and for dialysis management. Patient was seen on dialysis this morning, she is alert and oriented. She does have a harsh cough. Denies any chest pain. 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 (current) use of anticoagulants Gross hematuria Retroperitoneal hematoma Constipation, unspecified Raynaud's syndrome without gangrene Hypo-osmolality and hyponatremia Hyperlipidemia, unspecified Hypothyroidism, unspecified Anemia, unspecified Need for assistance with personal care Other malaise Other abnormalities of gait and mobility Unsteadiness on feet Muscle weakness (generalized) Other symbolic dysfunctions Dysphagia, oropharyngeal phase Essential (primary) hypertension Activated protein C resistance Unspecified severe protein-calorie malnutrition Acute respiratory failure with hypoxia Emphysema, unspecified Peripheral vascular disease, unspecified Enterocolitis due to Clostridium difficile, not specified as recurrent Acute kidney failure, unspecified Leakage of aortic (bifurcation) graft (replacement), subsequent encounter Abdominal aortic aneurysm, ruptured, unspecified Home Medications ?Medication ?Instructions ?Recorded ?Last Taken ?Type aspirin 81 mg tablet,delayed 81 mg PO DAILY HEART 03/11/24 07/23/24 History release (Adult Aspirin Regimen) atorvastatin 20 mg tablet 20 mg PO QHS CHOLESTEROL 03/11/24 07/22/24 History metoprolol tartrate 25 mg tablet 25 mg PO BID HTN 03/11/24 07/22/24 History thiamine HCl (vitamin B1) 100 mg 100 mg PO BID SUPPLEMENT 04/11/24 07/23/24 History tablet cyclobenzaprine 5 mg tablet 5 mg PO Q8H PRN MUSCLE SPASMS 06/05/24 07/10/24 History acetaminophen 325 mg tablet 650 mg PO Q6H PRN fever 07/18/24 Unknown History aluminum-magnesium hydroxide 200 30 ml PO Q4H PRN GI DISTRESS 07/18/24 Unknown History mg-200 mg/5 mL oral suspension amlodipine 5 mg tablet 5 mg PO QHS HTN 07/18/24 07/22/24 History docusate sodium 100 mg tablet 100 mg PO PRN PRN constipation 07/18/24 Unknown History guaifenesin 100 mg/5 mL oral liquid 200 mg PO PRN PRN cough 07/18/24 07/14/24 History levothyroxine 200 mcg tablet 200 mcg PO DAILY THYROID 07/18/24 07/23/24 History midodrine 10 mg tablet 10 mg PO DAILY PRN for SBP lower 07/18/24 Unknown History than 110 during dialysis tx ondansetron 4 mg disintegrating 4 mg PO DAILY PRN nausea and 07/18/24 Unknown History tablet vomiting polyethylene glycol 3350 17 17 g PO QODAY CONSTIPATION 07/18/24 07/21/24 History gram/dose oral powder sennosides 8.6 mg-docusate sodium 1 tab-cap PO DAILY PRN constipation 07/18/24 Unknown History 50 mg tablet (Senna Plus) vitamin B complex-vitamin C-folic 1 tab PO DAILY SUPPLEMENT 07/18/24 07/23/24 History acid 0.8 mg tablet (Renal Vitamin) bisacodyl 10 mg rectal suppository 10 mg KS DAILY PRN constipation 07/31/24 Unknown History ascorbic acid (vitamin C) 500 mg 500 mg PO DAILY SUPPLEMENT #0 tabs 08/13/24 Unknown Rx tablet acetaminophen 650 mg rectal 650 mg KS Q3H PRN fever or pain 08/14/24 Unknown History suppository sodium phosphates 19 gram-7 118 ml KS DAILY PRN constipation 08/14/24 Unknown History gram/118 mL enema (Enema) albuterol sulfate 2.5 mg/3 mL 2.5 mg continuous nebulization Q8H 01/20/25 Unknown History (0.083 %) solution for nebulization PRN shortness of breath or wheezing esomeprazole magnesium 40 mg 40 mg PO DAILY GERD 01/20/25 Unknown History capsule,delayed release ferrous sulfate 325 mg (65 mg 325 mg PO DAILY SUPPLEMENT 01/20/25 Unknown History iron) tablet furosemide 80 mg tablet 80 mg PO DAILY edema or increased 01/20/25 Unknown History dyspnea gentamicin 0.1 % topical cream 1 applic topical DAILY LEFT TOE 01/20/25 Unknown History WOUND mirtazapine 30 mg tablet 30 mg PO QHS MOOD 01/20/25 Unknown History sertraline 50 mg tablet 50 mg PO DAILY MOOD 01/20/25 Unknown History IV with Additives 40 mls/hr GT 01/22/25 Unknown Rx cefdinir 300 mg capsule 300 mg PO DAILY INFECTION #4 caps 01/22/25 Unknown Rx oxycodone 5 mg tablet 5 mg PO Q4H PRN pain 02/28/25 Unknown History ascorbic acid (vitamin C) 500 mg 500 mg PO QHS SUPPLEMENT 03/10/25 Unknown History tablet (C-500) Allergy/AdvReac Type Severity Reaction Status Date / Time iodine Allergy Intermediate Nausea Verified 03/10/25 13:16 shellfish derived Allergy Intermediate Nausea Verified 03/10/25 13:16 Social History Smoking Status: Former smoker Tobacco: How many years used: 40 alcohol intake: former substance use type: does not use ROS ROS Narrative As in HPI otherwise negative Physical Exam Narrative Alert and oriented, no apparent distress S1, S2, RRR Diminished breath sounds with harsh nonproductive cough. On O2 nasal cannula Abdomen soft, nontender, PEG tube intact no edema Tunneled hemodialysis catheter right chest dressing clean, dry and intact Lab / Micro Data 03/11/25 05:00 03/11/25 05:00 Labs: Laboratory Results - last 24 hr 03/10/25 13:28: Sodium 135, Potassium 3.1 L, Chloride 92 L, Carbon Dioxide 29.2, Anion Gap 13, BUN 21 H, Creatinine 0.69 L, Estim Creat Clear Calc 66.73, Est GFR (MDRD) Non-Af 98, BUN/Creatinine Ratio 30.7 H, Glucose 122 H, Calcium 8.0, Total Bilirubin 0.54, AST 121 H, ALT 155 H, Alkaline Phosphatase 198 H, Total Protein 7.4, Albumin 3.6, Globulin 3.8, Albumin/Globulin Ratio 0.9 03/10/25 13:29: Troponin T High Sens 236 H* D 03/10/25 13:40: WBC 11.6 H, RBC 3.25 L, Hgb 9.4 L, Hct 29.9 L, MCV 92.0, MCH 28.9, MCHC 31.4 L, RDW Std Deviation 59.2 H, RDW Coeff of Monika 18.0 H, Plt Count 232, MPV 9.7, Neut % (Auto) Not Reportable, Absolute Neuts (auto) 8.9 H, Absolute Lymphs (auto) 0.50 L, Total Counted 100, Neutrophils % (Manual) 71 H, Band Neutrophils % 6 H, Lymphocytes % (Manual) 4 L, Monocytes % (Manual) 8, Basophils % (Manual) 1, Metamyelocytes % 7 H, Myelocytes % 2 H, Promyelocytes % 1 H, Diff Path Review May , Platelet Estimate ADEQUATE, RBC Morphology NORM C+C, PT 14.0, INR 1.1, APTT 35.3, Lactic Acid 3.7 H*, NT pro BNP II 3659 H 03/10/25 13:50: Urine Color Yellow, Urine Clarity Clear, Urine pH 6.0, Ur Specific [place] 1.010, Urine Protein 30 H, Urine Glucose (UA) Normal, Urine Ketones Negative, Urine Occult Blood Negative, Urine Nitrite Negative, Urine Bilirubin Negative, Urine Urobilinogen Normal, Ur Leukocyte Esterase Negative, Urine RBC 0-5 SEEN, Urine WBC 0-5 SEEN, Ur Squamous Epith Cells 0-5 SEEN, Calcium Oxalate Crystal 3+, Urine Bacteria 0 SEEN, Hyaline Casts 0-5 SEEN, Fine Granular Casts 0-5 SEEN, Urine Mucus 1+ 03/10/25 15:50: Troponin T Hi Sens 2 Hr 240 H* 03/10/25 18:20: Lactic Acid 1.3 03/11/25 05:00: WBC 8.8, RBC 2.73 L, Hgb 8.0 L, Hct 25.4 L, MCV 93.0, MCH 29.3, MCHC 31.5 L, RDW Std Deviation 61.2 H, RDW Coeff of Monika 18.5 H, Plt Count 217, MPV 10.1, Neut % (Auto) Not Reportable, Absolute Neuts (auto) 7.9 H, Absolute Lymphs (auto) 0.20 L, Total Counted 100, Neutrophils % (Manual) 83 H, Band Neutrophils % 7 H, Lymphocytes % (Manual) 2 L, Monocytes % (Manual) 3, Eosinophils % (Manual) 3, Metamyelocytes % 2 H, Platelet Estimate ADEQUATE, RBC Morphology NORM C+C, Sodium 134, Potassium 3.6, Chloride 98, Carbon Dioxide 25.7, Anion Gap 11, BUN 41 H, Creatinine 1.22 H, Estim Creat Clear Calc 38.49 L, Est GFR (MDRD) Non-Af 50 L, BUN/Creatinine Ratio 33.5 H, Glucose 100 H, Calcium 7.9, Phosphorus 3.2, Magnesium 1.7, Total Bilirubin 0.31, AST 106 H, ALT 128 H, Alkaline Phosphatase 129 H, Total Protein 6.0, Albumin 2.9 L, Globulin 3.1, Albumin/Globulin Ratio 0.9, TSH 8.500 H Micro: Microbiology 03/10/25 14:15 Blood Culture (Wb) - Right Hand Blood Culture - Preliminary 03/10/25 14:15 Sputum, Induced/Lukens Gram Stain - Final 03/10/25 13:40 Mucosa - Nose SARS-CoV-2, Influenza & RSV (PCR) - Final ABG Data ABG results: ABG 03/10/25 13:52 Specimen Type ART Sample Site R Radial pH 7.64 H* Bicarbonate Actual 33.5 H Total CO2 35 Base Excess 13 H O2 Saturation 91 L O2 % 3.5 ABG pCO2 31.4 L ABG pO2 49 L Milad Test Positive O2 Delivery Device Cannula Vent Mode Not entered Crit Call To/Read Back Yes Rhythm Strip Rhythm Strip: Sinus Rhythm Imaging Radiology Impression Brain CT 03/10/25 14:40 IMPRESSION: CHRONIC CHANGES. NO ACUTE FINDINGS. Reading Location: [facility]--1 Chest/Abdomen/Pelvis CTA 03/10/25 14:40 IMPRESSION: Bibasilar pulmonary consolidation. Small gallstones. Borderline splenomegaly. Retroperitoneal lymphadenopathy. Distal abdominal aorta with evidence of a aortic bi-iliac graft. Reading Location: [facility]-IR-1
[2025-03-11] MEDS: Vancomycin HCl 1,250 MG in 0.9% Normal Saline (250mL Bag) 250 ML 167 MG IV (12:23)
[2025-03-11] MEDS: Azithromycin 500 MG in 0.9% Normal Saline (250mL Bag) 250 ML 255 MG IV (12:53)
[2025-03-11] MEDS: Aspirin E.C. 81 MG Tablet PO (12:53)
[2025-03-11] MEDS: Thiamine Hydrochloride 100 MG Tablet PO ×2 (12:57→22:01)
[2025-03-11] MEDS: Folic Acid/Vitamin B Comp W-C 1 Capsule 1 CAP PO (12:57)
--- NOTE | 2025-03-11 13:27 | PCM.RX.CS ---
Consult Antibiotic Management Pharmacy has been consulted to manage selected antibiotic: Vancomycin Type of Intervention Type of Consult: New start Suspected Infection Suspected Infection: Sepsis and Pneumonia Labs Labs: Sodium 134 mmol/L (133-145) 03/11/25 05:00 Potassium 3.6 mmol/L (3.3-5.1) 03/11/25 05:00 Chloride 98 mmol/L (98-108) 03/11/25 05:00 Carbon Dioxide 25.7 mmol/L (21.0-32.0) 03/11/25 05:00 Anion Gap 11 (5-15) 03/11/25 05:00 BUN 41 mg/dL (4-19) H 03/11/25 05:00 Creatinine 1.22 mg/dL (0.70-1.20) H 03/11/25 05:00 Est GFR (MDRD) Non-Af 50 (>60) L 03/11/25 05:00 BUN/Creatinine Ratio 33.5 RATIO (10-20) H 03/11/25 05:00 Glucose 100 mg/dL (70-99) H 03/11/25 05:00 Microbiology Microbiology: Microbiology 03/10/25 14:15 Blood Culture (Wb) - Right Hand Bacteria Detection (PCR) - Final Staphylococcus epidermidis 03/10/25 14:15 Blood Culture (Wb) - Right Hand Blood Culture - Preliminary 03/10/25 14:15 Sputum, Induced/Lukens Gram Stain - Final 03/10/25 13:40 Mucosa - Nose SARS-CoV-2, Influenza & RSV (PCR) - Final Dosing Weight Weight used for dosin kg Estimated Creatinine Clearance Estimated Creatinine Clearance: on HD Goal Trough Goal Trough: 15-20 mcg/mL Pharmacy Plan for Drug Dosing Pharmacy Plan for Drug Dosing: Give initial loading dose of 1250mg (25mg/kg) x1 today after dialysis. Since the next dialysis will most likely not be until Monday per dialysis nurse, will order a vanc random level pre-HD on Monday. Will use that level to see what dose should be given after HD that day. Pharmacy Service will continue to monitor and adjust dosing as required. Follow-Up Labs Follow-Up Labs: Trough: Vancomycin (random pre-HD) Date/Time Labs Ordered Labs to be done on [date and time ordered]: 03/14/25 06:00
--- NOTE | 2025-03-11 14:30 | CASEMGMT ---
Social Work - Palliative Meeting/Discharge Planning Reason for intervention: Goals of Care meeting with Palliative provider Jaja MOORE, patient and sister Janette Ortega who is the [facility]. Sister Laisha joined by phone. This financial underwriter, along with EARL FergusonC, met with patient and sister for goals of care meeting, which SW also broached discharge planning during this meeting. Palliative: This financial underwriter and provider educated family to palliative care, answered questions, and explored patient's goals of care, including code status. Patient has identified desire for DNRCC-A, but okay with intubation. An [place] DNRCC form was completed, and signed by patient. Copy to the chart, as well as to the sister who wants to take most up to date copy to the SNF and to Dialysis Center where patient seeks treatment. Patient gave verbal consent for patient's sister/POAHC to have copies of the form, so as to ensure all care providers have the same information. Goals of walking, increasing lower body and core strength were identified by sister and patient. Patient did express desire to keep working with therapy, and still has an eventual goal to return home if able, and hopes to be able to walk again. It was discussed with patient and sister, if goals are to walk again, of need to allow for Denise as part of getting patient out of bed, as well as working with therapy then, even when patient may not want to. Patient verbalized agreement, though historically has not wanted to engage with denise lift at the . Patient was willing to think about palliative care, after hearing what palliative can offer, as well as reinforcement that palliative is not meant to be a feeder into hospice but rather a service to help with management of symptoms, working with the care team to ensure needs are being met, and to help catch concern before the need for hospitalization arises. Note, when palliative was initially mentioned the sister immediately expressed no to palliative, and felt this was just a step away from hospice care. Observed the patient talk about being hot, not feeling good, being tired during parts of the conversation were hard, or when the sister voiced strong opinions but then told the patient is it is the patient's choice. This financial underwriter and Jaja provided support to patient and sister, and encouraged/empowered patient that staff want to follow patient's wishes. The sister agreed to be present to support patient. By end of conversation, the sister seems to be more open to thinking about palliative, not voicing such opposition, and seeming to listen to education provided. Refer to [facility] Palliative Care Consultation for further details of discussion. Discharge Planning: During discission, broached discharge planning. Patient stated plan to return to [facility] for now. The sister interjected and stated had not had a chance to talk with patient but wondered if patient might want to try somewhere else, stating the hospital has tried before without success to find another facility, despite facilities stating they can take care of the needs patient has. Sister stated the hospital tried about 15 places before without luck. Educated that while many facilities can provide care to patient's needs, sometimes it is the collective need that impedes ability to accept, as the facilities need to ensure facilities have enough staffing/resources to care for the current residents plus resources to care for any new resident who admits. Sister would like to see patient closer to [facility], as this is where the sister lives. Sister wonders if now that patient is private pay at [facility], if another NF may be willing to take patient. Sister would like to see [facility] looked into, as this is where patient and sister's mother was, as well as [facility] as this facility reportedly helped someone walk again, who was told would never walk again. Patient voiced agreement with referrals but would like to know the private pay cost before committing to one of these two facilities. Agreed to make referrals to 2 chosen facilities, and if do not work out could return to [facility] when medically ready - that this financial underwriter would bring quality and resource data choice list to the sister for [facility] so the sister can research other places and then a NF to NF transfer could be worked on from [facility]. Spoke with Joellen, Discharge starch treating assistant about referrals to requested facilities in [place] and [place], as well as choice lists to give patient/family more options to explore. Plan: [facility] care at [facility] or new facility if accepted. Has been private pay, intermediate level of care at [facility]. Possible outpatient Palliative care referral - will follow and assist with referral as indicated. SW remains available for support as needed/indicated. -RISHI Dinero
--- NOTE | 2025-03-11 14:31 | CASEMGMT ---
Discharge Planning A list of SNF providers including quality and resource use data and consistent with the patient's preferred geographic region ([place]), medical needs, and insurance network was created in [facility] Guide.? This list was provided to the SW. Joellen Billy Discharge Planning Asst.
--- NOTE | 2025-03-11 14:50 | CASEMGMT ---
Addendum entered by Joellen Billy 03/12/25 15:49: [facility] has accepted but pt would need to initially pay for outside transport to/from dialysis. SW updated. Joellen Billy DC Planning Asst. Addendum entered by Joellen Billy 03/12/25 14:47: [facility] has declined d/t care needs. Follow up call made to Molly @ [facility]. She reports that her corporate office has not touched base yet with pts sister to verify finances. This handbook writer then called pts sister (Janette). Janette states that she hasn't rec'd any calls regarding her sister, only a few missed calls that came through as spam and no vm was left. Molly at [facility] updated via [employer]. SW updated. Joellen Billy DC Planning Asst. Addendum entered by Joellen Billy 03/12/25 09:20: [facility] to touch base with family regarding pts financial ability to pay privately. [facility] has not yet fully reviewed referral. Admissions to send to [facility] and [facility] this morning. Joellen Billy DC Planning Asst. Original Note: Discharge Planning Referral sent to [facility] and [facility]. Updates sent to [facility]. Joellen Billy DC Planning Asst.
[2025-03-11] MEDS: Ceftriaxone 2 GM in 0.9% Normal Saline (50mL MB+) 50 ML IV (14:57)
--- NOTE | 2025-03-11 15:00 | CASEMGMT ---
Social Work As follow up to meeting with patient, family and palliative care provider provided patient's sister Janette with quality and resource data choice lists for preferred geographical regions of [facility]. Sister was leaving and shared that trying to look out for patient's overall needs - both health and financial related concerns. 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 Sister reports if patient needs to pay 2 months up front, if this will help another facility accept, then can do this. Patient reportedly has a , whom has been estranged from since March 2024. Patient's sisters are patient's primary supports. Supportive listening provided. Verified that [facility] document is scanned into the chart. Plan: technician terminal and repeater care at [facility] or new facility if accepted. - Referrals are out to [facility] and [facility] at patient/family request. Has been private pay, intermediate level of care at [facility]. Possible outpatient Palliative care referral - will follow and assist with referral as indicated. remains available for support as needed/indicated. -RISHI Dinero
[2025-03-11] MEDS: NEPRO 1,000 ML 40 ML GT (21:59)
[2025-03-11] MEDS: Heparin Injection (Vial) 5,000 UNIT/ML VIAL 5000 UNIT SC (22:05)
[2025-03-12] VITALS (7 sets, daily range): BP systolic 117–129; BP diastolic 59–69; PULSE 68–88; RESP 16; TEMP 36.7–37.5; O2SAT 99–100; BMI 14.4
[2025-03-12] MEDS: 0.9% Saline Lock 10 ML Syringe IV ×2 (03:29→16:03)
[2025-03-12 06:38] LABS: Hematocrit 25.7 % (37-47); Hemoglobin 7.9 g/dL (12.0-15.0); Mean Corp Hgb Conc 30.7 g/dL (32-36); Mean Corpuscular Volume 94.5 fL (81-99); Mean Platelet Vol. 10.1 fl (6.2-12.0); POSITIVE COUNT YES; POSITIVE DIFFERENTIAL YES; POSITIVE MORPHOLOGY YES; Platelet Count 245 K/mm3 (150-450); RBC Distribution Width CV 18.7 % (11.6-14.6); RBC Distribution Width SD 63.7 fl (35.1-43.9); Red Blood Count 2.72 M/mm3 (4.2-5.4); White Blood Count 10.2 K/mm3 (4.4-11.0)
[2025-03-12 06:40] LABS: Differential Indicated MANUAL DIFF
[2025-03-12 07:07] LABS: Anion Gap 11 (5-15); BUN 40 mg/dL (4-19); BUN/Creat Ratio 26.6 RATIO (10-20); Calcium,Total 9.1 mg/dL (7.6-11.0); Carbon Dioxide 23.4 mmol/L (21.0-32.0); Chloride 99 mmol/L (98-108); Estimated Creatinine Clearance 29.58 ml/min (50-250); Glucose 99 mg/dL (70-99); Magnesium 1.7 mg/dL (1.5-2.2); Potassium 4.0 mmol/L (3.3-5.1)
[2025-03-12 07:31] LABS: Neutrophil-Band 8 % (0-5); Neutrophil-Segmented 74 % (47-70); Total Cells Counted 100 (MANUAL DIFF)
[2025-03-12 07:32] LABS: Red Cell Morphology NORM C+C NORMAL (NORM C&C)
--- NOTE | 2025-03-12 08:50 | PCM.PN.HOSP ---
Reason for Visit Chief Complaint: Hypotension Subjective Subjective Patient blood cultures came back positive for gram-positive cocci final identification consistent with staph epi possibly contaminant. Sputum cultures however positive for Pseudomonas subsequently adjusted patient antibiotic therapy Objective Data Objective Data Vital Signs: Vital Signs Temp Pulse Resp BP Pulse Ox O2 Del Method O2 Flow Rate 98.4 F 77 16 119/59 L 99 Nasal Cannula 3 03/12/25 03:21 03/12/25 03:21 03/12/25 03:21 03/12/25 03:21 03/12/25 03:21 03/12/25 03:21 03/12/25 03:21 Oxygen Flow Rate (L/min) 3 Oxygen Delivery Method Nasal Cannula Weight: 48.5 kg Body Mass Index (BMI) 14.4 Intake & Output: Intake and Output for Last 24 Hours 03/10/25 03/11/25 03/12/25 23:59 23:59 23:59 Intake Total 1999 / 1999 2520 / 2520 Output Total 150 / 150 3300 / 3350 250 / 250 Balance 1850 / 1850 -780 / -830 -250 / -250 Medical Nutrition Assessment Dietitian: Malnutrition Criteria Met Start: 03/11/25 11:34 Freq: Status: Active Protocol: Document 03/11/25 11:34 SB (Rec: 03/11/25 11:35 SB [id number]) Nutrition Malnutrition Evidence of Yes Malnutrition Exists Malnutrition (severe Chronic ): Evidenced By Suboptimal Energy Intake (Severe),Physical Changes ( Severe) Clinical Problem Chronic Disease or Condition Related Malnutrition Etiology severe protein-calorie malnutrition in the context of chronic disease related to swallow difficulty and inadequate oral/energy intake Signs/Symptoms as evidenced by severe muscle and fat depletion in clavicle, temporal region, orbitals, and arms/leg; BMI 15.2kg/m2 and PO meeting less than 50% of estimated nutrition needs x 6 months requiring PEG tube for enteral nutrition support. Status Active Problem Recommendation Dietitian 1. Recommend advanced diet as tolerated to regular per Recommendations/ RAIL TRANSPORTATION OPERATOR recommendations. Changes 2. Continue via PEG Nepro Carb Steady goal rate 40mL and will add 120mL water flushes every 4 hours. 3. Adjust water flushes as needed depending on oral intake as diet is advanced. 4. Will monitor weight trends and tube feeding. Lab / Micro Data 03/12/25 05:03 03/12/25 05:03 Labs: Laboratory Results - last 24 hr 03/12/25 05:03: WBC 10.2, RBC 2.72 L, Hgb 7.9 L, Hct 25.7 L, MCV 94.5, MCH 29.0, MCHC 30.7 L, RDW Std Deviation 63.7 H, RDW Coeff of Monika 18.7 H, Plt Count 245, MPV 10.1, Neut % (Auto) Not Reportable, Absolute Neuts (auto) 8.4 H, Absolute Lymphs (auto) 0.30 L, Total Counted 100, Neutrophils % (Manual) 74 H, Band Neutrophils % 8 H, Lymphocytes % (Manual) 3 L, Monocytes % (Manual) 3, Eosinophils % (Manual) 5, Metamyelocytes % 6 H, Myelocytes % 1 H, Platelet Estimate ADEQUATE, RBC Morphology NORM C+C, Sodium 134, Potassium 4.0, Chloride 99, Carbon Dioxide 23.4, Anion Gap 11, BUN 40 H, Creatinine 1.51 H, Estim Creat Clear Calc 29.58 L, Est GFR (MDRD) Non-Af 39 L, BUN/Creatinine Ratio 26.6 H, Glucose 99, Calcium 9.1, Phosphorus 3.3, Magnesium 1.7 Micro: Microbiology 03/10/25 14:15 Sputum, Induced/Lukens Gram Stain - Final 03/10/25 14:15 Sputum, Induced/Lukens Respiratory Culture - Preliminary GNR Poss Pseudomonas sp 03/10/25 14:15 Blood Culture (Wb) - Right Hand Bacteria Detection (PCR) - Final Staphylococcus epidermidis 03/10/25 14:15 Blood Culture (Wb) - Right Hand Blood Culture - Preliminary 03/10/25 13:40 Mucosa - Nose SARS-CoV-2, Influenza & RSV (PCR) - Final Rhythm Strip Rhythm Strip: Sinus Rhythm Physical Exam Narrative GENERAL: cooperative HEENT: Atraumatic; normocephalic EYES; Anicteric, Normal Conjunctiva NECK; supple, normal thyroid, RESPIRATORY: Diminished to auscultation CARDIOVASCULAR: Regular S1 S2, GI: soft, normoactive bowel sounds, : No Renal angle tenderness; EXTREMITIES: No edema, no clubbing, MUSCULOSKELETAL: Dry gangrene involving both NEURO: Awake; no lateralizing signs. SKIN: No Rash PSYCH; Flat affect Assessment & Plan Assessment/Plan (1) Sepsis: PLAN: Plan Patient is a 64-year-old lady who was sent from the dialysis center with altered mental status as well as hypotension. Imaging studies obtained on admission demonstrated bibasilar pulmonary consolidation consistent with pneumonia diagnosis of sepsis made treatment initiated per protocol admitted to monitored bed for further management 1. Sepsis secondary to pneumonia ? Patient admitted to a monitored bed treatment initiated per protocol with IV fluids, blood cultures sent, as well as broad-spectrum antibiotic therapy with ceftriaxone and azithromycin ? 03/12/2025Patient blood cultures came back positive for gram-positive cocci final identification consistent with staph epi possibly contaminant. Sputum cultures however positive for Pseudomonas patient had been started on vancomycin following receipt of patient positive blood cultures for gram-positive cocci discontinued this a.m. Discontinued ceftriaxone started patient on cefepime pending receipt of the Pseudomonas sensitivity 2. Acute metabolic encephalopathy ? Secondary to above ? 03/12/2025; patient back to baseline 3. Physical deconditioning ? Requested for PT OT eval and social worker masters to assist with discharge planning 4. End-stage renal disease ? Patient is on hemodialysis. Consult placed to nephrology 5. Severe malnutrition -Patient severely underweight with temporal wasting and markedly decreased lean muscle mass patient underwent PEG tube placement by GI on 07/24/2024 consult was placed to dietitian on admission 6. Chronic hypoxic respiratory failure ? Patient is on baseline home oxygen 2 L at rest did require up to 4 L on admission 7. Bilateral toe wounds with dry gangrene/stage I sacral pressure ulcer ? Consult placed wound care nurse 8. Anemia ? Secondary to chronic disorder monitoring H&H and transfuse if patient becomes symptomatic or hemoglobin falls below 7 ? 03/12/2025; patient hemoglobin down to 7.9 admitting hemoglobin was 9.4 will continue with daily monitoring 9. History of factor V Leyden mutation ? Remains stable 10. Hypertension ? Blood pressure controlled, home medications continued with dose adjustment as needed 11. GERD ? Patient is on PPI 12. Hypothyroidism ? Patient is on levothyroxine home dose continued 13. Depression with anxiety ? Patient is on sertraline and mirtazapine did continue with home dose 14. Chronic constipation ? Did continue with patient home bowel regimen 15. DVT prophylaxis ? Subcu heparin Time spent in the patient's overall evaluation,decision-making process, review of diagnostic data, adjustment of management, discussion with other providers, nursing nursing and ancillary staff involved in patient's care documentation, 52 Minutes Charges/Coding Visit Charges Inpatient E&M: 72333 Subs Hosp L3
--- NOTE | 2025-03-12 10:13 | PCM.PN.REN ---
Subjective Subjective Patient resting in bed. Denies any complaints. No overnight events. Objective Data Objective Data Vital Signs: Vital Signs Temp Pulse Resp BP Pulse Ox O2 Del Method O2 Flow Rate 98.4 F 77 16 119/59 L 99 Nasal Cannula 3 03/12/25 03:21 03/12/25 03:21 03/12/25 03:21 03/12/25 03:21 03/12/25 03:21 03/12/25 07:44 03/12/25 07:44 Oxygen Flow Rate (L/min) 3 Oxygen Delivery Method Nasal Cannula Weight: 48.5 kg Body Mass Index (BMI) 14.4 Intake & Output: Intake and Output for Last 24 Hours 03/10/25 03/11/25 03/12/25 23:59 23:59 23:59 Intake Total 1999 2520 / 2520 Output Total 150 / 150 3300 / 3350 250 / 250 Balance 1850 / 1850 -780 / -830 -250 / -250 Medical Nutrition Assessment Dietitian: Malnutrition Criteria Met Start: 03/11/25 11:34 Freq: Status: Active Protocol: Document 03/11/25 11:34 SB (Rec: 03/11/25 11:35 SB [id number]) Nutrition Malnutrition Evidence of Yes Malnutrition Exists Malnutrition (severe Chronic ): Evidenced By Suboptimal Energy Intake (Severe),Physical Changes ( Severe) Clinical Problem Chronic Disease or Condition Related Malnutrition Etiology severe protein-calorie malnutrition in the context of chronic disease related to swallow difficulty and inadequate oral/energy intake Signs/Symptoms as evidenced by severe muscle and fat depletion in clavicle, temporal region, orbitals, and arms/leg; BMI 15.2kg/m2 and PO meeting less than 50% of estimated nutrition needs x 6 months requiring PEG tube for enteral nutrition support. Status Active Problem Recommendation Dietitian 1. Recommend advanced diet as tolerated to regular per Recommendations/ WOOD CASKET ASSEMBLER recommendations. Changes 2. Continue via PEG Nepro Carb Steady goal rate 40mL and will add 120mL water flushes every 4 hours. 3. Adjust water flushes as needed depending on oral intake as diet is advanced. 4. Will monitor weight trends and tube feeding. Lab / Micro Data 03/12/25 05:03 03/12/25 05:03 Labs: Laboratory Results - last 24 hr 03/12/25 05:03: WBC 10.2, RBC 2.72 L, Hgb 7.9 L, Hct 25.7 L, MCV 94.5, MCH 29.0, MCHC 30.7 L, RDW Std Deviation 63.7 H, RDW Coeff of Monika 18.7 H, Plt Count 245, MPV 10.1, Neut % (Auto) Not Reportable, Absolute Neuts (auto) 8.4 H, Absolute Lymphs (auto) 0.30 L, Total Counted 100, Neutrophils % (Manual) 74 H, Band Neutrophils % 8 H, Lymphocytes % (Manual) 3 L, Monocytes % (Manual) 3, Eosinophils % (Manual) 5, Metamyelocytes % 6 H, Myelocytes % 1 H, Platelet Estimate ADEQUATE, RBC Morphology NORM C+C, Sodium 134, Potassium 4.0, Chloride 99, Carbon Dioxide 23.4, Anion Gap 11, BUN 40 H, Creatinine 1.51 H, Estim Creat Clear Calc 29.58 L, Est GFR (MDRD) Non-Af 39 L, BUN/Creatinine Ratio 26.6 H, Glucose 99, Calcium 9.1, Phosphorus 3.3, Magnesium 1.7 Micro: Microbiology 03/10/25 14:15 Blood Culture (Wb) - Right Hand Bacteria Detection (PCR) - Final Staphylococcus epidermidis 03/10/25 14:15 Blood Culture (Wb) - Right Hand Blood Culture - Preliminary Staphylococcus epidermidis 03/10/25 13:50 Urine, Catheterized Urine Culture - Final Culture exhibits no growth. 03/10/25 14:15 Sputum, Induced/Lukens Gram Stain - Final 03/10/25 14:15 Sputum, Induced/Lukens Respiratory Culture - Preliminary GNR Poss Pseudomonas sp 03/10/25 13:40 Mucosa - Nose SARS-CoV-2, Influenza & RSV (PCR) - Final Rhythm Strip Rhythm Strip: Sinus Rhythm Physical Exam Narrative Alert and oriented, no apparent distress S1, S2, RRR Breath sounds clear anteriorly. On O2 nasal cannula Abdomen soft, nontender, PEG tube intact no edema Tunneled hemodialysis catheter right chest dressing clean, dry and intact Assessment & Plan Assessment/Plan (1) End stage renal disease: (2) Anemia of chronic disease: PLAN: Plan This is a 64-year-old female with past medical history significant for ESRD on hemodialysis Monday and Monday who was admitted to the hospital for sepsis probable secondary to pneumonia. Nephrology consulted as patient has history of ESRD and for dialysis management. Patient undergoing hemodialysis today and attempting fluid removal as patient/blood pressure tolerates. Outpatient EDW had been around 47 kg, yesterday's weight was 49 kg, previous EDW end of January to first week of February was around 46 kg. Will attempt fluid removal as patient/blood pressure tolerates and likely patient will have a new slightly lowered EDW by time of hospital discharge. Patient is on O2 3 to 4 L nasal cannula. Patient has anemia of chronic disease, will monitor hemoglobin trends. She receives DENISE and iron at kidney center. Patient has history of intradialytic hypotension and receives midodrine. We will continue giving midodrine at start of dialysis and also during dialysis as needed for hypotension. Palliative care has been consulted for goals of care. 03/12/2025: Patient underwent hemodialysis yesterday over 4 hours and tolerated 3 L of fluid removal. No acute indication for renal placement therapy today. Outpatient hemodialysis schedule Monday and Monday. Will likely plan for next dialysis for Monday unless acute need arises for hemodialysis. Sputum culture growing Pseudomonas, blood culture staph epi possible contaminant. On cefepime. Discussed nephrology plan with Dr. Rogers. Assessment and plan reviewed with Dr. Torres.
[2025-03-12] MEDS: Folic Acid/Vitamin B Comp W-C 1 Capsule 1 CAP PO (10:23)
[2025-03-12] MEDS: Aspirin E.C. 81 MG Tablet PO (10:23)
[2025-03-12] MEDS: Thiamine Hydrochloride 100 MG Tablet PO ×2 (10:23→21:59)
[2025-03-12] MEDS: Heparin Injection (Vial) 5,000 UNIT/ML VIAL 5000 UNIT SC ×2 (10:23→21:59)
[2025-03-12] MEDS: Cefepime HCl 1 GM in 0.9% Normal Saline (50mL MB+) 50 ML IV (10:38)
--- NOTE | 2025-03-12 11:49 | PCM.PN.PAL ---
Subjective Subjective 03/12/25 Prior to meeting with the pt at bedside I reviewed documentation, labs and microbiology results. I also spoke with SW and CRISTO. I then me with Shannon in her room. She is awake, alert and oriented. She currently has no complaints. She states that she is feeling better today and that yesterday dialysis takes it out of me. I asked her if she had given any more thought to the utilization of Palliative care from an outpatient status. She stated that she has not thought about it any more, although she doesnt think she would want it. Overnight her sputum cultures came back positive for pseudomonas and blood culture grew staph epidermidis. Pt is currently in contact precautions. She does state a desire to relocate to another facility because she is hoping to work with PT and OT in a hopes that she can walk again. PT and OT was ordered here but, from an acute standpoint, she uses a Denise at baseline and has no acute need. Pts goals of care have been established as well as code status updated. Palliative care will sign off. If you would like to re-consult for our services, please reach out to me via Backline or [phone]. 03/11/25:Prior to meeting with the pt at bedside, I reviewed previous visit documentation, discussion with SW, review of labs and radiological studies. I then met with SCOTT OBREGON at bedside. She is very cachectic in appearance and presents much older than her reported 64 years. She is wrapped in multiple layers of blankets and is currently receiving HD dialysis. She is FTT and has a PEG feeding tube. I introduced myself and the concept of palliative care in which she voluntarily excepted our services. CT did state I think that I have talked to palliative before and we decided not to use the services. I did attempt to explain what palliative care is and she states that she would like to have her sister present for any further conversations. I did reach out to the patient's sister in which we have set up a meeting today at 1300. I was able to complete my ROS and physical assessment. 1300: Family meeting with the pt, sister Janette, sister Tyra on the phone, pt, myself and Diamond RUSSELL. We discussed goals of care going forward. Scott states that her ultimate goal is to get stronger and to return home. I did explain to Scott that she has been in bed for an extended amount of time. Sister Janette (Shannon) stated that she knew someone that was told she would never walk again and is now walking. I did talk to Scott earlier today in which she stated that she would refuse to get out of bed because she doesnt like the Denise. I did expalin that the Denise is needed for safety of staff and patient both. Shannon stated that she has helped Scott the most by moving her legs in bed and now she can lift her legs. Scott wants to get up to a chair but I did explain the need to use a denise and she did agree to the use of the denise going forward if it means getting her out of the bed. Sisterfito wants her to be able to work in the bed to build strength before attempting to get her out of bed and force the denise on her. Sisterfito and Scott are requesting the possibility of changing facilities in which Diamond is getting a list of private pay referrals to be closer to Scott. They like [facility] in [facility]. We also discussed code status in which the pt stated no CPR but yes to intubation. Pt signed the DNRCC-A with intubation form. is in agreement. Scott was complaining of abdominal discomfort and profound exhaustion. I did update Dr. Rogers and I was able to place an order for Mylicon tablets. I did note that Dr. Kessler ordered PT/OT/ST yesterday. Pending assessment and eval. Lastly we had and extensive discussion about outpatient palliative care services, which the pt states that she would like to think about it. The patients sister was an immediate no and stating that it is one step closer to dying. Myself and Diamond did spend an extensive amount of time explaining what Palliative care does and how it can help Scott to be an extra layer of support for her and well as being an advocate for her well being. did soften to the fact slightly, but continues to refuse the outpatient service but is open to inpatient services. All questions answered. Palliative care will continue to follow for goals of care conversation as clinical picture evolves. per Dr. Kessler: SCOTT OBREGON, is a 64 F with a complex medical history and frequent admissions who presented to the emergency department on 03/10/2025 from her dialysis unit. On presentation the patient was found to be hypotensive and hypoxic. She had altered mental status on arrival but is known to our facility and has a complex past medical history. She does have known chronic hypoxic respiratory failure on 2 to 3 L at baseline but was requiring more oxygen as she was hypoxic on her baseline. EMS was called due to this. EMS found her hypotensive on arrival. Dialysis was not started at that time. She was placed on a nonrebreather prior to transfer and systolic blood pressures per the squad were in the 120s to 130s. Patient reported to me she has had an increase moist cough and fever and chills recently. She has no known sick contacts but is a resident of a local group home. Her mobility is poor and she does have history of recurrent infections. Vital signs on presentation showed a temperature of 99.8 with a Tmax of 102.3, heart rate was 95, respiratory rate 16, blood pressure was 130/66 initially in the emergency department and sats were 92% on 4 L nasal cannula. CBC showed a leukocytosis with a white count 11.6 and a left shift at 71% with 6% bands. She is a chronic stable anemia with a hemoglobin of 9.4. Chemistry panel showed mild hypokalemia with a potassium of 3.1 lactic acid was 3.7, she did have mild transaminitis with an AST of 121 and ALT of 155 and alk phos of 193. Initial troponin was 236 and her proBNP was 3659. ABG was actually alkalotic with a pH of 7.64 with a pCO2 of 31.4 and a pO2 of 49. CT of the brain showed no acute findings.'s CTA of the chest abdomen pelvis showed bibasilar congestion/infiltrate, small gallstones, borderline splenomegaly, retroperitoneal lymphadenopathy and stable aortic bi-iliac graft. Patient was treated with 1 L of IV fluids given the fact that she has dialysis with stabilize blood pressure and antibiotics with azithromycin and ceftriaxone for pulmonary source. Objective Data Objective Data Vital Signs: Vital Signs Temp Pulse Resp BP Pulse Ox O2 Del Method O2 Flow Rate 98.1 F 75 16 120/59 L 99 Nasal Cannula 3 03/12/25 10:19 03/12/25 10:23 03/12/25 10:19 03/12/25 10:23 03/12/25 10:19 03/12/25 10:03/12/25 10:19 Oxygen Flow Rate (L/min) 3 Oxygen Delivery Method Nasal Cannula Weight: 106 lb 14.787 oz Body Mass Index (BMI) 14.4 Intake & Output: Intake and Output for Last 24 Hours 03/10/25 03/11/25 03/12/25 23:59 23:59 23:59 Intake Total 1999 2520 / 2520 Output Total 150 / 150 3300 / 3350 400 / 400 Balance 1850 / 1850 -780 / -830 -400 / -400 Medical Nutrition Assessment Dietitian: Malnutrition Criteria Met Start: 03/11/25 11:34 Freq: Status: Active Protocol: Document 03/11/25 11:34 SB (Rec: 03/11/25 11:35 SB [id number]) Nutrition Malnutrition Evidence of Yes Malnutrition Exists Malnutrition (severe Chronic ): Evidenced By Suboptimal Energy Intake (Severe),Physical Changes ( Severe) Clinical Problem Chronic Disease or Condition Related Malnutrition Etiology severe protein-calorie malnutrition in the context of chronic disease related to swallow difficulty and inadequate oral/energy intake Signs/Symptoms as evidenced by severe muscle and fat depletion in clavicle, temporal region, orbitals, and arms/leg; BMI 15.2kg/m2 and PO meeting less than 50% of estimated nutrition needs x 6 months requiring PEG tube for enteral nutrition support. Status Active Problem Recommendation Dietitian 1. Recommend advanced diet as tolerated to regular per Recommendations/ AUTOMOTIVE DETAILER recommendations. Changes 2. Continue via PEG Nepro Carb Steady goal rate 40mL and will add 120mL water flushes every 4 hours. 3. Adjust water flushes as needed depending on oral intake as diet is advanced. 4. Will monitor weight trends and tube feeding. Lab / Micro Data Attestation: I reviewed the patient's lab results. 03/12/25 05:03 03/12/25 05:03 Labs: Laboratory Results - last 24 hr 03/12/25 05:03: WBC 10.2, RBC 2.72 L, Hgb 7.9 L, Hct 25.7 L, MCV 94.5, MCH 29.0, MCHC 30.7 L, RDW Std Deviation 63.7 H, RDW Coeff of Monika 18.7 H, Plt Count 245, MPV 10.1, Neut % (Auto) Not Reportable, Absolute Neuts (auto) 8.4 H, Absolute Lymphs (auto) 0.30 L, Total Counted 100, Neutrophils % (Manual) 74 H, Band Neutrophils % 8 H, Lymphocytes % (Manual) 3 L, Monocytes % (Manual) 3, Eosinophils % (Manual) 5, Metamyelocytes % 6 H, Myelocytes % 1 H, Platelet Estimate ADEQUATE, RBC Morphology NORM C+C, Sodium 134, Potassium 4.0, Chloride 99, Carbon Dioxide 23.4, Anion Gap 11, BUN 40 H, Creatinine 1.51 H, Estim Creat Clear Calc 29.58 L, Est GFR (MDRD) Non-Af 39 L, BUN/Creatinine Ratio 26.6 H, Glucose 99, Calcium 9.1, Phosphorus 3.3, Magnesium 1.7 Micro: Microbiology 03/10/25 14:15 Blood Culture (Wb) - Right Hand Bacteria Detection (PCR) - Final Staphylococcus epidermidis 03/10/25 14:15 Blood Culture (Wb) - Right Hand Blood Culture - Preliminary Staphylococcus epidermidis 03/10/25 13:50 Urine, Catheterized Urine Culture - Final Culture exhibits no growth. 03/10/25 14:15 Sputum, Induced/Lukens Gram Stain - Final 03/10/25 14:15 Sputum, Induced/Lukens Respiratory Culture - Preliminary GNR Poss Pseudomonas sp 03/10/25 13:40 Mucosa - Nose SARS-CoV-2, Influenza & RSV (PCR) - Final Rhythm Strip Rhythm Strip: Sinus Rhythm Physical Exam Const alert and oriented x3 Constitutional Narrative: cachectic and dishelved General Appearance: frail and appears older than stated age Orientation / Consciousness: awake, oriented to person, oriented to place and oriented to time HEENT normocephalic Teeth and Gingiva: abnormal tooth and associated gingiva Eyes PERRL Neck full ROM Resp Effort and Inspection: able to speak in complete sentences Auscultation: crackles Cardio regular rate, S1 normal heart sound and S2 normal heart sound GI soft to palpation GI Narrative: PEG tube with continuous feedings. Inspection: abdominal distention Palpation: tender other (gas pains ) no CVA tenderness Back/Spine no CVA tenderness Extremity normal capillary refill Extremity Narrative: emaciated with severe muscle wasting to extremities Skin no rashes or lesions noted Skin Narrative: Difficult to assess skin as patient is bundled up in multiple layers of blankets. General Skin Exam: dry skin Neuro oriented x3 Neuro Narrative: Patient is bedbound at baseline and requires Denise lift to get out of bed. Speech: speech normal Psych Psych Narrative: Flat affect noted Mood & Affect: flat affect Charges/Coding Palliative Care Palliative Care: 26085 Follow up 35-49 min Consulation Summary Current admission Current Code Status: DNRCC-A with intubation Associated Diagnosis: FTT, ESRD, PNA, sepsis Consult Data Date of Consult: 03/11/25 Location of consult: PCU Reason for referral: GOC, code status Referral source: physician Palliative care diagnosis (Summary list): sepsis, FTT Palliative care services/treatment (Accepted, as consult): accepted Case discussed with referring provider: goals of care Palliative Assessment Advanced Directive - Current Admission Advance Directive: Advance Directive ON ADMISSION - REFERENCE Do you have a Healthcare Yes 03/10/25 17:45 Living Will? Is a Healthcare Living Will Yes, paper copy provided 03/10/25 17:45 present in the medical record? Do you have a Healthcare Power Yes 03/10/25 17:45 of Industrial Health Engineer? Is a Healthcare Power of Yes, paper copy provided 03/10/25 17:45 Industrial Health Engineer present in the medical rec Name of Medical Power shannon bhatia 03/10/25 17:45 Industrial Health Engineer Do You Want Additional Declined 03/10/25 17:45 Information on Advanced Directives or Healthcare Proxy/DPOA comments: sister Janette (Shannon) Symptoms Dyspnea symptoms: Mild Anorexia symptoms: Severe Cough symptoms: Severe Fatigue symptoms: Moderate Weakness symptoms: Severe Confusion symptoms: None Impression & Recommendations Recommentation Palliative recommendations: Minimal recommendation : palliative care on outpatient basis. Encouter Achieved as a result of this Palliative Care Encounter: [ ] minutes were spent in total for this visit which consisted, primarily of counseling and education dealing with the complex and emotionally intense issues of symptom management and palliative care in the setting of serious and potentially life-threatening illness. Review of documentation, labs and radiological studies. ?Patient/family had the opportunity to ask questions Plan (1) Sepsis: PLAN: Medical management per IDT (2) Pleural effusion: PLAN: Medical management per IDT (3) Anasarca: PLAN: Medical management per IDT (4) Pulmonary edema: PLAN: Medical management per IDT (5) PEG (percutaneous endoscopic gastrostomy) status: PLAN: Current continuous tube feed (6) Urinary tract infection: PLAN: Medical management per IDT (7) Hypoglycemia: PLAN: Medical management per IDT (8) Chronic kidney disease with end stage renal 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: PLAN: Patient currently receiving dialysis (9) Factor V Leiden: (10) Palliative care encounter: PLAN: *family meeting and pt is wanting referrals to new facility. *changed to DNRCC-A with intubation *Signed off as pt has estblished her goals of care and is not wanting outpatient palliative services (11) Goals of care, counseling/discussion: PLAN: *worked on goal of care and pt untlimate goals is to get strong enough to return home *short term goal is to work on core strength *sit up in chair *agreeable to denise if needed to get up to chair. *states understanding of the need to work with PT/OT on an outpatient basis ROS ROS Narrative pt has no complaints today, except for cough with sputum production Review of Systems ROS Unobtainable: due to encephalopathy Constitutional Constitutional: Reports systems reviewed and no addt'l complaints, except as documented Eyes Eyes: Reports systems reviewed and no addt'l complaints, except as documented ENT HEENT: Reports systems reviewed and no addt'l complaints, except as documented Cardiovascular Cardiovascular: Reports systems reviewed and no addt'l complaints, except as documented Respiratory/Chest Respiratory/Chest: Reports cough and excessive phlegm production Gastrointestinal Gastrointestinal: Reports systems reviewed and no addt'l complaints, except as documented Genitourinary Genitourinary: Reports as per HPI Musculoskeletal Musculoskeletal: Reports muscle weakness Integumentary Integumentary: Reports as per HPI Neurologic Neurologic: Reports systems reviewed and no addt'l complaints, except as documented Psychiatric Psychiatric: Reports systems reviewed and no addt'l complaints, except as documented Endocrine Endocrinology: Reports systems reviewed and no addt'l complaints, except as documented Hematologic/Lymphatic Hematologic/Lymphatic: Reports systems reviewed and no addt'l complaints, except as documented Allergic/Immunologic Allergic/Immunologic: Reports systems reviewed and no addt'l complaints, except as documented
--- NOTE | 2025-03-12 15:43 | CASEMGMT ---
Addendum entered by Meryl Hopkins 03/12/25 16:35: Social Work Return call from pts sister Janette. SW explained the discharge situation as laid out in previous SW note. Janette expressed surprise that pt may want to return to [facility] prior to making decision to move to [facility]. SW explained that pt would have to be accepted at [facility] and transportation would have to be arranged. Janette requested SW find out about these two things and states she will talk to pt again. SW did explain to Janette that pt is likely ready for dc tomorrow and Janette acknowledged understanding of this. Janette states she will talk with pt again about discharge plan. SW encouraged Janette to consider pts feelings and desire to be in control of decision making regarding the nursing facility she is at and to allow for extended time for decision making if pt needs it. Janette expresses understanding. Message sent to [facility] requesting cost of transport to dialysis. SW requested RNCM send referral to [facility]. SW to follow up in the morning for continued dc planning. RICKY Figueroa Original Note: Social Work CRISTO Horner from [facility] here to see pt. YVONNE and Siri met with pt in pt room. SW introduced self and role of SW. SW explained that [facility] is unable to accept. [facility] states they are able to accept pt. Covered Button Maker from [facility] provided pt with room rates. SW explained that even though [facility] has accepted, pt will also have to be accepted at the [facility] and transport will need to be arranged. Therefore, full acceptance is not been obtained yet. Pt states she wants time to consider her options and does not want to ayala into a decision. SW expressed understanding of time needed for decision making, but also informed pt that per physician, pt will likely be ready for discharge tomorrow. Pt acknowledges that she has been told this and if she is ready for discharge tomorrow, she will return to [facility] where she will have time to make decision about transferring to [facility]. Pt states she would like her sister to assist in decision making and sister will need time to tour [facility] and that sister would be in to visit pt in a couple days. SW reiterated that pt will likely discharge tomorrow and offered to call pt sister to discuss discharge plan. Pt is agreeable. Phone call to pt sister Janette and VM left requesting return call to discuss discharge planning. SW will await return call. RICKY Figueroa
[2025-03-12] MEDS: NEPRO 1,000 ML 40 ML GT (23:10)
[2025-03-13 03:27] VITALS: BP 125/60; PULSE 75; RESP 18; TEMP 37.1; O2SAT 99
[2025-03-13 04:15] VITALS: BMI 13.4
[2025-03-13 05:46] LABS: Hematocrit 25.7 % (37-47); Hemoglobin 8.3 g/dL (12.0-15.0); Mean Corp Hgb Conc 32.3 g/dL (32-36); Mean Corpuscular Volume 92.8 fL (81-99); Mean Platelet Vol. 9.8 fl (6.2-12.0); POSITIVE COUNT YES; POSITIVE DIFFERENTIAL YES; POSITIVE MORPHOLOGY YES; Platelet Count 218 K/mm3 (150-450); RBC Distribution Width CV 18.6 % (11.6-14.6); RBC Distribution Width SD 60.8 fl (35.1-43.9); Red Blood Count 2.77 M/mm3 (4.2-5.4); White Blood Count 8.7 K/mm3 (4.4-11.0)
[2025-03-13 06:01] LABS: Differential Indicated MANUAL DIFF
[2025-03-13] MEDS: 0.9% Saline Lock 10 ML Syringe IV ×2 (06:02→10:45)
[2025-03-13 07:12] LABS: Anion Gap 14 (5-15); BUN 55 mg/dL (4-19); BUN/Creat Ratio 28.8 RATIO (10-20); Calcium,Total 9.2 mg/dL (7.6-11.0); Carbon Dioxide 21.3 mmol/L (21.0-32.0); Chloride 98 mmol/L (98-108); Estimated Creatinine Clearance 21.68 ml/min (50-250); Glucose 92 mg/dL (70-99); Potassium 4.0 mmol/L (3.3-5.1)
[2025-03-13 07:13] LABS: Neutrophil-Band 6 % (0-5); Neutrophil-Segmented 81 % (47-70); Nucleated Red Bld Cells,Manual 1 % (0-5); Total Cells Counted 100 (MANUAL DIFF)
[2025-03-13 07:14] LABS: Anisocytosis 1+
[2025-03-13 07:15] LABS: Polychromasia RARE
--- NOTE | 2025-03-13 08:24 | PN.HOSP_ITS ---
Reason for Visit Chief Complaint: Hypotension Subjective Subjective Patient seen, sputum cultures positive for Citrobacter and Pseudomonas. Plan for patient to be discharged to SNF Objective Data Objective Data Vital Signs: Vital Signs Temp Pulse Resp BP Pulse Ox O2 Del Method O2 Flow Rate 98.8 F 75 18 125/60 H 99 Nasal Cannula 3 03/13/25 03:27 03/13/25 03:27 03/13/25 03:27 03/13/25 03:27 03/13/25 03:27 03/13/25 03:27 03/13/25 03:27 Oxygen Flow Rate (L/min) 3 Oxygen Delivery Method Nasal Cannula Weight: 45.2 kg Body Mass Index (BMI) 13.4 Intake & Output: Intake and Output for Last 24 Hours 03/11/25 03/12/25 03/13/25 23:59 23:59 23:59 Intake Total 2520 / 2520 2130 / 2130 Output Total 3300 / 3350 400 / 400 Balance -780 / -830 1730 / 1730 Medical Nutrition Assessment Dietitian: Malnutrition Criteria Met Start: 03/11/25 11:34 Freq: Status: Active Protocol: Document 03/11/25 11:34 SB (Rec: 03/11/25 11:35 SB [id number]) Nutrition Malnutrition Evidence of Yes Malnutrition Exists Malnutrition (severe Chronic ): Evidenced By Suboptimal Energy Intake (Severe),Physical Changes ( Severe) Clinical Problem Chronic Disease or Condition Related Malnutrition Etiology severe protein-calorie malnutrition in the context of chronic disease related to swallow difficulty and inadequate oral/energy intake Signs/Symptoms as evidenced by severe muscle and fat depletion in clavicle, temporal region, orbitals, and arms/leg; BMI 15.2kg/m2 and PO meeting less than 50% of estimated nutrition needs x 6 months requiring PEG tube for enteral nutrition support. Status Active Problem Recommendation Dietitian 1. Recommend advanced diet as tolerated to regular per Recommendations/ COMMUNICATIONS TOWER TECHNICIAN recommendations. Changes 2. Continue via PEG Nepro Carb Steady goal rate 40mL and will add 120mL water flushes every 4 hours. 3. Adjust water flushes as needed depending on oral intake as diet is advanced. 4. Will monitor weight trends and tube feeding. Lab / Micro Data 03/13/25 05:02 03/13/25 05:02 Labs: Laboratory Results - last 24 hr 03/13/25 05:02: WBC 8.7, RBC 2.77 L, Hgb 8.3 L, Hct 25.7 L, MCV 92.8, MCH 30.0, MCHC 32.3 D, RDW Std Deviation 60.8 H, RDW Coeff of Monika 18.6 H, Plt Count 218, MPV 9.8, Neut % (Auto) Not Reportable, Absolute Neuts (auto) 7.6, Absolute Lymphs (auto) 0.52 L, Total Counted 100, Neutrophils % (Manual) 81 H, Band Neutrophils % 6 H, Lymphocytes % (Manual) 6 L, Monocytes % (Manual) 3, Eosinophils % (Manual) 1, Myelocytes % 3 H, Nucleated RBCs/100 WBC 1, Platelet Estimate ADEQUATE, Polychromasia RARE, Anisocytosis 1+, Sodium 133, Potassium 4.0, Chloride 98, Carbon Dioxide 21.3, Anion Gap 14, BUN 55 H, Creatinine 1.92 H , Estim Creat Clear Calc 21.68 L, Est GFR (MDRD) Non-Af 29 L, BUN/Creatinine Ratio 28.8 H, Glucose 92, Calcium 9.2 Micro: Microbiology 03/10/25 14:15 Sputum, Induced/Lukens Gram Stain - Final 03/10/25 14:15 Sputum, Induced/Lukens Respiratory Culture - Preliminary Pseudomonas aeruginosa Citrobacter freundii 03/10/25 14:15 Blood Culture (Wb) - Right Hand Bacteria Detection (PCR) - Final Staphylococcus epidermidis 03/10/25 14:15 Blood Culture (Wb) - Right Hand Blood Culture - Preliminary Staphylococcus epidermidis 03/10/25 13:50 Urine, Catheterized Urine Culture - Final Culture exhibits no growth. 03/10/25 13:40 Mucosa - Nose SARS-CoV-2, Influenza & RSV (PCR) - Final Rhythm Strip Rhythm Strip: Sinus Rhythm Physical Exam Narrative GENERAL: cooperative HEENT: Atraumatic; normocephalic EYES; Anicteric, Normal Conjunctiva NECK; supple, normal thyroid, RESPIRATORY: Diminished to auscultation CARDIOVASCULAR: Regular S1 S2, GI: soft, normoactive bowel sounds, : No Renal angle tenderness; EXTREMITIES: No edema, no clubbing, MUSCULOSKELETAL: Dry gangrene involving both NEURO: Awake; no lateralizing signs. SKIN: No Rash PSYCH; Flat affect Assessment & Plan Assessment/Plan (1) Sepsis: PLAN: Plan Patient is a 64-year-old lady who was sent from the dialysis center with altered mental status as well as hypotension. Imaging studies obtained on admission demonstrated bibasilar pulmonary consolidation consistent with pneumonia diagnosis of sepsis made treatment initiated per protocol admitted to monitored bed for further management 1. Sepsis secondary to pneumonia ? Patient admitted to a monitored bed treatment initiated per protocol with IV fluids, blood cultures sent, as well as broad-spectrum antibiotic therapy with ceftriaxone and azithromycin ? 03/12/2025Patient blood cultures came back positive for gram-positive cocci final identification consistent with staph epi possibly contaminant. Sputum cultures however positive for Pseudomonas patient had been started on vancomycin following receipt of patient positive blood cultures for gram-positive cocci discontinued this a.m. Discontinued ceftriaxone started patient on cefepime pending receipt of the Pseudomonas sensitivity ? Patient final sputum cultures came back positive for Citrobacter as well as Pseudomonas sensitivities reviewed patient remains on appropriate antibiotic therapy 2. Acute metabolic encephalopathy ? Secondary to above ? 03/12/2025; patient back to baseline 3. Physical deconditioning ? Requested for PT OT eval and pediatric social worker to assist with discharge planning 4. End-stage renal disease ? Patient is on hemodialysis. Consult placed to nephrology 5. Severe malnutrition -Patient severely underweight with temporal wasting and markedly decreased lean muscle mass patient underwent PEG tube placement by GI on 07/24/2024 consult was placed to dietitian on admission 6. Chronic hypoxic respiratory failure ? Patient is on baseline home oxygen 2 L at rest did require up to 4 L on admission 7. Bilateral toe wounds with dry gangrene/stage I sacral pressure ulcer ? Consult placed wound care nurse 8. Anemia ? Secondary to chronic disorder monitoring H&H and transfuse if patient becomes symptomatic or hemoglobin falls below 7 ? 03/12/2025; patient hemoglobin down to 7.9 admitting hemoglobin was 9.4 will continue with daily monitoring 9. History of factor V Leyden mutation ? Remains stable 10. Hypertension ? Blood pressure controlled, home medications continued with dose adjustment as needed 11. GERD ? Patient is on PPI 12. Hypothyroidism ? Patient is on levothyroxine home dose continued 13. Depression with anxiety ? Patient is on sertraline and mirtazapine did continue with home dose 14. Chronic constipation ? Did continue with patient home bowel regimen 15. DVT prophylaxis ? Subcu heparin Time spent in the patient's overall evaluation,decision-making process, review of diagnostic data, adjustment of management, discussion with other providers, nursing nursing and ancillary staff involved in patient's care documentation, 36 Minutes Charges/Coding Visit Charges Inpatient E&M: 12259 Subs Hosp L2
[2025-03-13 08:37] VITALS: O2SAT 95
--- NOTE | 2025-03-13 10:04 | CASEMGMT ---
Social Work SW received message from [facility] regrading cost of transport to Dialysis. SW put all costs for [facility] room and board and transportation in writing and provided it to pt. SW verbally explained costs as well. SW informed pt options of returning to [facility] at time of discharge allowing pt time to make decisions regarding retirement care placement. The other option is to go to [facility] from hospital, if the dialysis center accepts pt. RNCM notified to send referral to dialysis center. YVONNE reiterated to pt that SW wants to honor pt's wishes and allow pt to time to consider options and not to push pt into a decision, however pt's sister has expressed to SW a desire for pt to go to [facility] from [facility]. Pt states that she would prefer to return to [facility] with time to think about transfer, but that her sister may be able to change my mind. SW explained that pt may be ready for dc today and a decision would need to be made. Pt expressing understanding of this. [facility] updated via [facility]. SW to continue to follow for dc planning. RICKY Figueroa
[2025-03-13 10:31] VITALS: BP 122/50; PULSE 76; RESP 16; TEMP 36.9; O2SAT 99
--- NOTE | 2025-03-13 10:33 | PCM.TXEXTCAR ---
Diet Diet Order/Speech Therapy: INPATIENT Hospital Diet / Speech Therapy Order(s) 03/11/25 15:29 Diet: Regular - General Food consistency:: Easy to Chew Liquid Consistency:: Regular/Thin Speech Therapy Comments: distant supervision, meds whole in pudding Routine Orders/Code Status Code Status: DNRCC-A DC O2, CPAP, BIPAP needs Home O2 Discharge instructions: No Wound(s) abdomen LLQ: Wound Type: scabbed over wound Dressing Change: dry dressing Problem/Diagnosis (1) Sepsis: Status: Acute Code(s): A41.9 - Sepsis, unspecified organism Plan Patient is a 64-year-old lady who was sent from the dialysis center with altered mental status as well as hypotension. Imaging studies obtained on admission demonstrated bibasilar pulmonary consolidation consistent with pneumonia diagnosis of sepsis made treatment initiated per protocol admitted to monitored bed for further management 1. Sepsis secondary to pneumonia ? Patient admitted to a monitored bed treatment initiated per protocol with IV fluids, blood cultures sent, as well as broad-spectrum antibiotic therapy with ceftriaxone and azithromycin ? 03/12/2025Patient blood cultures came back positive for gram-positive cocci final identification consistent with staph epi possibly contaminant. Sputum cultures however positive for Pseudomonas patient had been started on vancomycin following receipt of patient positive blood cultures for gram-positive cocci discontinued this a.m. Discontinued ceftriaxone started patient on cefepime pending receipt of the Pseudomonas sensitivity ? Patient final sputum cultures came back positive for Citrobacter as well as Pseudomonas sensitivities reviewed patient remains on appropriate antibiotic therapy 2. Acute metabolic encephalopathy ? Secondary to above ? 03/12/2025; patient back to baseline 3. Physical deconditioning ? Requested for PT OT eval and mental health social worker to assist with discharge planning 4. End-stage renal disease ? Patient is on hemodialysis. Consult placed to nephrology 5. Severe malnutrition -Patient severely underweight with temporal wasting and markedly decreased lean muscle mass patient underwent PEG tube placement by GI on 07/24/2024 consult was placed to dietitian on admission 6. Chronic hypoxic respiratory failure ? Patient is on baseline home oxygen 2 L at rest did require up to 4 L on admission 7. Bilateral toe wounds with dry gangrene/stage I sacral pressure ulcer ? Consult placed wound care nurse 8. Anemia ? Secondary to chronic disorder monitoring H&H and transfuse if patient becomes symptomatic or hemoglobin falls below 7 ? 03/12/2025; patient hemoglobin down to 7.9 admitting hemoglobin was 9.4 will continue with daily monitoring 9. History of factor V Leyden mutation ? Remains stable 10. Hypertension ? Blood pressure controlled, home medications continued with dose adjustment as needed 11. GERD ? Patient is on PPI 12. Hypothyroidism ? Patient is on levothyroxine home dose continued 13. Depression with anxiety ? Patient is on sertraline and mirtazapine did continue with home dose 14. Chronic constipation ? Did continue with patient home bowel regimen 15. DVT prophylaxis ? Subcu heparin Time spent in the patient's overall evaluation,decision-making process, review of diagnostic data, adjustment of management, discussion with other providers, nursing nursing and ancillary staff involved in patient's care documentation, 36 Minutes Allergies/Procedures Done in Hospital Allergies iodine Allergy (Intermediate, Verified 03/10/25 13:16) Nausea shellfish derived Allergy (Intermediate, Verified 03/10/25 13:16) Nausea Type of Care/Length of Stay Estimated LOS: More Than 30 Days Type of Care Needed: Intermediate Rehab Potential: Fair Prognosis: Fair Additional Orders/Day of Discharge Day of Discharge: 03/13/25 Dietary and Speech Recommendations Dietitian Recommendations/Changes: 1. Recommend advanced diet as tolerated to regular per THREAD SINGER recommendations. 2. Continue via PEG Nepro Carb Steady goal rate 40mL and will add 120mL water flushes every 4 hours. 3. Adjust water flushes as needed depending on oral intake as diet is advanced. 4. Will monitor weight trends and tube feeding. Discharge Plan Admission Admit Date/Time: 03/10/25 16:49 Attending Provider: Ambrose Rogers Primary Care Provider: Millie Massey Consulting Providers: Jaja Panchal; Angie Torres; Remedios Kessler Discharge Orders/Prescriptions Prescriptions: New ciprofloxacin HCl [Cipro] 500 mg tablet 500 mg PO Q24H Qty: 7 0RF Continued cyclobenzaprine 5 mg tablet 5 mg PO Q8H PRN (Reason: MUSCLE SPASMS) acetaminophen 325 mg tablet 650 mg PO Q6H PRN (Reason: fever) guaifenesin 100 mg/5 mL liquid 200 mg PO PRN PRN (Reason: cough) Renal Vitamin 0.8 mg tablet 1 tab PO DAILY polyethylene glycol 3350 17 gram/dose powder 17 g PO QODAY Rx Instructions: EVERY OTHER DAY AT BED TIME ondansetron 4 mg tablet,disintegrating 4 mg PO DAILY PRN (Reason: nausea and vomiting) docusate sodium 100 mg tablet 100 mg PO PRN PRN (Reason: constipation) midodrine 10 mg tablet 10 mg PO DAILY PRN (Reason: for SBP lower than 110 during dialysis tx) Rx Instructions: for SBP lower than 110 during dialysis tx acetaminophen 650 mg suppository 650 mg TX Q3H PRN (Reason: fever or pain) Enema 19-7 gram/118 mL enema 118 ml TX DAILY PRN (Reason: constipation) Rx Instructions: NEEDED FOR CONSTIPATION FOR 2 EPISODES IF DULCOLAX SUPP INEFFECTIVE. CALL PHYSICIAN IF NO BM X4 DAYS albuterol sulfate 2.5 mg /3 mL (0.083 %) solution for nebulization 2.5 mg continuous nebulization Q8H PRN (Reason: shortness of breath or wheezing) Patient Comments: [NO ORIGINAL SIG] esomeprazole magnesium 40 mg capsule,delayed release(DR/EC) 40 mg PO DAILY gentamicin 0.1 % cream 1 applic topical DAILY mirtazapine 30 mg tablet 30 mg PO QHS furosemide 80 mg tablet 80 mg PO DAILY ferrous sulfate 325 mg (65 mg iron) tablet 325 mg PO DAILY sertraline 50 mg tablet 50 mg PO DAILY IV with Additives Nepro [Nepro Carb Steady] 1000 ML 40 mls/hr GT Ordered By: Glenn Munguia MD Last Taken: Unknown cefdinir 300 mg capsule 300 mg PO DAILY Qty: 4 0RF aspirin [Adult Aspirin Regimen] 81 mg tablet,delayed release (DR/EC) 81 mg PO DAILY atorvastatin 20 mg tablet 20 mg PO QHS metoprolol tartrate 25 mg tablet 25 mg PO BID thiamine HCl (vitamin B1) 100 mg tablet 100 mg PO BID amlodipine 5 mg tablet 5 mg PO QHS levothyroxine 200 mcg tablet 200 mcg PO DAILY sennosides-docusate sodium [Senna Plus] 8.6-50 mg tablet 1 tab-cap PO DAILY PRN (Reason: constipation) aluminum-magnesium hydroxide 200-200 mg/5 mL suspension 30 ml PO Q4H PRN (Reason: GI DISTRESS) bisacodyl 10 mg suppository 10 mg TX DAILY PRN (Reason: constipation) ascorbic acid (vitamin C) 500 mg Tablet 500 mg PO DAILY Qty: 0 0RF oxycodone 5 mg tablet 5 mg PO Q4H PRN (Reason: pain) ascorbic acid (vitamin C) [C-500] 500 mg tablet 500 mg PO QHS Referrals / Follow Up: Millie Massey MD [Primary Care Provider, Geriatrics] - Within 1 Week Disposition Disposition (needs filled in before D/C Order can be placed): [facility] Facility
[2025-03-13] MEDS: Aspirin E.C. 81 MG Tablet PO (10:38)
[2025-03-13] MEDS: Folic Acid/Vitamin B Comp W-C 1 Capsule 1 CAP PO (10:38)
[2025-03-13] MEDS: Heparin Injection (Vial) 5,000 UNIT/ML VIAL 5000 UNIT SC (10:38)
[2025-03-13 10:39] VITALS: BP 122/50; PULSE 76
[2025-03-13] MEDS: Thiamine Hydrochloride 100 MG Tablet PO (10:39)
--- NOTE | 2025-03-13 10:42 | DS.PCM_ITS ---
Providers Date of Admission: 03/10/25 Date of Discharge: 03/13/25 Primary Care Physician: Dr. Millie Massey MD Consultations 03/10/25 17:43 Consult: Inpatient Palliative Care Routine Consulting Provider: Jaja Panchal Reason for Consult: GOC discussion EMERGENT Consult: No Notified: Yes Date Notified: 03/10/25 Time Notified: 17:52 Method of Notification: Text Consult: Nephrology Routine Consulting Provider: Angie Torres Reason for Consult: ESRD EMERGENT Consult: No Notified: Yes Date Notified: 03/10/25 Time Notified: 17:46 Method of Notification: Answering Service Consult: Onc/Wound/aviation project manager Routine Comment: Reason For Visit: SEPSIS 2/2 PNA Diagnosis Discharge Diagnosis (1) Sepsis: Status: Acute Code(s): A41.9 - Sepsis, unspecified organism Plan Patient is a 64-year-old lady who was sent from the dialysis center with altered mental status as well as hypotension. Imaging studies obtained on admission demonstrated bibasilar pulmonary consolidation consistent with pneumonia diagnosis of sepsis made treatment initiated per protocol admitted to monitored bed for further management 1. Sepsis secondary to pneumonia ? Patient admitted to a monitored bed treatment initiated per protocol with IV fluids, blood cultures sent, as well as broad-spectrum antibiotic therapy with ceftriaxone and azithromycin ? 03/12/2025Patient blood cultures came back positive for gram-positive cocci final identification consistent with staph epi possibly contaminant. Sputum cultures however positive for Pseudomonas patient had been started on vancomycin following receipt of patient positive blood cultures for gram-positive cocci discontinued this a.m. Discontinued ceftriaxone started patient on cefepime pending receipt of the Pseudomonas sensitivity ? Patient final sputum cultures came back positive for Citrobacter as well as Pseudomonas sensitivities reviewed patient remains on appropriate antibiotic therapy 2. Acute metabolic encephalopathy ? Secondary to above ? 03/12/2025; patient back to baseline 3. Physical deconditioning ? Requested for PT OT eval and social media coordinator to assist with discharge planning 4. End-stage renal disease ? Patient is on hemodialysis. Consult placed to nephrology 5. Severe malnutrition -Patient severely underweight with temporal wasting and markedly decreased lean muscle mass patient underwent PEG tube placement by GI on 07/24/2024 consult was placed to dietitian on admission 6. Chronic hypoxic respiratory failure ? Patient is on baseline home oxygen 2 L at rest did require up to 4 L on admission 7. Bilateral toe wounds with dry gangrene/stage I sacral pressure ulcer ? Consult placed wound care nurse 8. Anemia ? Secondary to chronic disorder monitoring H&H and transfuse if patient becomes symptomatic or hemoglobin falls below 7 ? 03/12/2025; patient hemoglobin down to 7.9 admitting hemoglobin was 9.4 will continue with daily monitoring 9. History of factor V Leyden mutation ? Remains stable 10. Hypertension ? Blood pressure controlled, home medications continued with dose adjustment as needed 11. GERD ? Patient is on PPI 12. Hypothyroidism ? Patient is on levothyroxine home dose continued 13. Depression with anxiety ? Patient is on sertraline and mirtazapine did continue with home dose 14. Chronic constipation ? Did continue with patient home bowel regimen 15. DVT prophylaxis ? Subcu heparin Time spent in the patient's overall evaluation,decision-making process, review of diagnostic data, adjustment of management, discussion with other providers, nursing nursing and ancillary staff involved in patient's care documentation, 36 Minutes Medications at Discharge Home Medications aspirin 81 mg tablet,delayed release (Adult Aspirin Regimen) 81 mg PO DAILY HEART 03/11/24 atorvastatin 20 mg tablet 20 mg PO QHS CHOLESTEROL 03/11/24 metoprolol tartrate 25 mg tablet 25 mg PO BID HTN 03/11/24 thiamine HCl (vitamin B1) 100 mg tablet 100 mg PO BID SUPPLEMENT 04/11/24 cyclobenzaprine 5 mg tablet 5 mg PO Q8H PRN MUSCLE SPASMS 06/05/24 acetaminophen 325 mg tablet 650 mg PO Q6H PRN fever 07/18/24 aluminum-magnesium hydroxide 200 mg-200 mg/5 mL oral suspension 30 ml PO Q4H PRN GI DISTRESS 07/18/24 amlodipine 5 mg tablet 5 mg PO QHS HTN 07/18/24 docusate sodium 100 mg tablet 100 mg PO PRN PRN constipation 07/18/24 guaifenesin 100 mg/5 mL oral liquid 200 mg PO PRN PRN cough 07/18/24 levothyroxine 200 mcg tablet 200 mcg PO DAILY THYROID 07/18/24 midodrine 10 mg tablet 10 mg PO DAILY PRN for SBP lower than 110 during dialysis tx 07/18/24 ondansetron 4 mg disintegrating tablet 4 mg PO DAILY PRN nausea and vomiting 07/18/24 polyethylene glycol 3350 17 gram/dose oral powder 17 g PO QODAY CONSTIPATION 07/18/24 sennosides 8.6 mg-docusate sodium 50 mg tablet (Senna Plus) 1 tab-cap PO DAILY PRN constipation 07/18/24 vitamin B complex-vitamin C-folic acid 0.8 mg tablet (Renal Vitamin) 1 tab PO DAILY SUPPLEMENT 07/18/24 bisacodyl 10 mg rectal suppository 10 mg FL DAILY PRN constipation 07/31/24 ascorbic acid (vitamin C) 500 mg tablet 500 mg PO DAILY SUPPLEMENT #0 tabs 08/13/24 acetaminophen 650 mg rectal suppository 650 mg FL Q3H PRN fever or pain 08/14/24 sodium phosphates 19 gram-7 gram/118 mL enema (Enema) 118 ml FL DAILY PRN constipation 08/14/24 albuterol sulfate 2.5 mg/3 mL (0.083 %) solution for nebulization 2.5 mg continuous nebulization Q8H PRN shortness of breath or wheezing 01/20/25 esomeprazole magnesium 40 mg capsule,delayed release 40 mg PO DAILY GERD 01/20/25 ferrous sulfate 325 mg (65 mg iron) tablet 325 mg PO DAILY SUPPLEMENT 01/20/25 furosemide 80 mg tablet 80 mg PO DAILY edema or increased dyspnea 01/20/25 gentamicin 0.1 % topical cream 1 applic topical DAILY LEFT TOE WOUND 01/20/25 mirtazapine 30 mg tablet 30 mg PO QHS MOOD 01/20/25 sertraline 50 mg tablet 50 mg PO DAILY MOOD 01/20/25 IV with Additives 40 mls/hr GT 01/22/25 cefdinir 300 mg capsule 300 mg PO DAILY INFECTION #4 caps 01/22/25 oxycodone 5 mg tablet 5 mg PO Q4H PRN pain 02/28/25 ascorbic acid (vitamin C) 500 mg tablet (C-500) 500 mg PO QHS SUPPLEMENT 03/10/25 ciprofloxacin HCl 500 mg tablet (Cipro) 500 mg PO Q24H #7 tabs 03/13/25 Physical Exam Narrative GENERAL: cooperative HEENT: Atraumatic; normocephalic EYES; Anicteric, Normal Conjunctiva NECK; supple, normal thyroid, RESPIRATORY: Diminished to auscultation CARDIOVASCULAR: Regular S1 S2, GI: soft, normoactive bowel sounds, : No Renal angle tenderness; EXTREMITIES: No edema, no clubbing, MUSCULOSKELETAL: Dry gangrene involving both NEURO: Awake; no lateralizing signs. SKIN: No Rash PSYCH; Flat affect Medical Records Data Medical Nutrition Assessment Dietitian: Malnutrition Criteria Met Start: 03/11/25 11:34 Freq: Status: Active Protocol: Document 03/11/25 11:34 SB (Rec: 03/11/25 11:35 SB [id number]) Nutrition Malnutrition Evidence of Yes Malnutrition Exists Malnutrition (severe Chronic ): Evidenced By Suboptimal Energy Intake (Severe),Physical Changes ( Severe) Clinical Problem Chronic Disease or Condition Related Malnutrition Etiology severe protein-calorie malnutrition in the context of chronic disease related to swallow difficulty and inadequate oral/energy intake Signs/Symptoms as evidenced by severe muscle and fat depletion in clavicle, temporal region, orbitals, and arms/leg; BMI 15.2kg/m2 and PO meeting less than 50% of estimated nutrition needs x 6 months requiring PEG tube for enteral nutrition support. Status Active Problem Recommendation Dietitian 1. Recommend advanced diet as tolerated to regular per Recommendations/ FERMENTATION MANAGER recommendations. Changes 2. Continue via PEG Nepro Carb Steady goal rate 40mL and will add 120mL water flushes every 4 hours. 3. Adjust water flushes as needed depending on oral intake as diet is advanced. 4. Will monitor weight trends and tube feeding. Weight / BMI Weight Weight: 45.2 kg Body Mass Index (BMI) 13.4 ABG / Lab / Microbiology Data 03/13/25 05:02 03/13/25 05:02 Laboratory: Laboratory Results - last 24 hr 03/13/25 05:02: WBC 8.7, RBC 2.77 L, Hgb 8.3 L, Hct 25.7 L, MCV 92.8, MCH 30.0, MCHC 32.3 D, RDW Std Deviation 60.8 H, RDW Coeff of Monika 18.6 H, Plt Count 218, MPV 9.8, Neut % (Auto) Not Reportable, Absolute Neuts (auto) 7.6, Absolute Lymphs (auto) 0.52 L, Total Counted 100, Neutrophils % (Manual) 81 H, Band Neutrophils % 6 H, Lymphocytes % (Manual) 6 L, Monocytes % (Manual) 3, Eosinophils % (Manual) 1, Myelocytes % 3 H, Nucleated RBCs/100 WBC 1, Platelet Estimate ADEQUATE, Polychromasia RARE, Anisocytosis 1+, Sodium 133, Potassium 4.0, Chloride 98, Carbon Dioxide 21.3, Anion Gap 14, BUN 55 H, Creatinine 1.92 H , Estim Creat Clear Calc 21.68 L, Est GFR (MDRD) Non-Af 29 L, BUN/Creatinine Ratio 28.8 H, Glucose 92, Calcium 9.2 Microbiology: Microbiology 03/10/25 13:40 Blood Culture (Wb) - Venous Blood Culture - Preliminary No growth in 48 hours. 03/10/25 14:15 Blood Culture (Wb) - Right Hand Bacteria Detection (PCR) - Final Staphylococcus epidermidis 03/10/25 14:15 Blood Culture (Wb) - Right Hand Blood Culture - Preliminary Staphylococcus epidermidis 03/10/25 14:15 Sputum, Induced/Lukens Gram Stain - Final 03/10/25 14:15 Sputum, Induced/Lukens Respiratory Culture - Preliminary Pseudomonas aeruginosa Citrobacter freundii 03/10/25 13:50 Urine, Catheterized Urine Culture - Final Culture exhibits no growth. 03/10/25 13:40 Mucosa - Nose SARS-CoV-2, Influenza & RSV (PCR) - Final D/C Instructions DC O2, CPAP, BIPAP Needs Home O2 Discharge instructions: No Meaningful Use Info Meaningful Use Meaningful Use Diagnoses (Choose all that apply): None applicable Discharge Plan Admission Admit Date/Time: 03/10/25 16:49 Attending Provider: Ambrose Rogers Primary Care Provider: Millie Massey Consulting Providers: Jaja Panchal; Angie Torres; Remedios Kessler Discharge Orders/Prescriptions Prescriptions: New ciprofloxacin HCl [Cipro] 500 mg tablet 500 mg PO Q24H Qty: 7 0RF Continued cyclobenzaprine 5 mg tablet 5 mg PO Q8H PRN (Reason: MUSCLE SPASMS) acetaminophen 325 mg tablet 650 mg PO Q6H PRN (Reason: fever) guaifenesin 100 mg/5 mL liquid 200 mg PO PRN PRN (Reason: cough) Renal Vitamin 0.8 mg tablet 1 tab PO DAILY polyethylene glycol 3350 17 gram/dose powder 17 g PO QODAY Rx Instructions: EVERY OTHER DAY AT BED TIME ondansetron 4 mg tablet,disintegrating 4 mg PO DAILY PRN (Reason: nausea and vomiting) docusate sodium 100 mg tablet 100 mg PO PRN PRN (Reason: constipation) midodrine 10 mg tablet 10 mg PO DAILY PRN (Reason: for SBP lower than 110 during dialysis tx) Rx Instructions: for SBP lower than 110 during dialysis tx acetaminophen 650 mg suppository 650 mg FL Q3H PRN (Reason: fever or pain) Enema 19-7 gram/118 mL enema 118 ml FL DAILY PRN (Reason: constipation) Rx Instructions: NEEDED FOR CONSTIPATION FOR 2 EPISODES IF DULCOLAX SUPP INEFFECTIVE. CALL PHYSICIAN IF NO BM X4 DAYS albuterol sulfate 2.5 mg /3 mL (0.083 %) solution for nebulization 2.5 mg continuous nebulization Q8H PRN (Reason: shortness of breath or wheezing) Patient Comments: [NO ORIGINAL SIG] esomeprazole magnesium 40 mg capsule,delayed release(DR/EC) 40 mg PO DAILY gentamicin 0.1 % cream 1 applic topical DAILY mirtazapine 30 mg tablet 30 mg PO QHS furosemide 80 mg tablet 80 mg PO DAILY ferrous sulfate 325 mg (65 mg iron) tablet 325 mg PO DAILY sertraline 50 mg tablet 50 mg PO DAILY IV with Additives Nepro [Nepro Carb Steady] 1000 ML 40 mls/hr GT Ordered By: Glenn Munguia MD Last Taken: Unknown cefdinir 300 mg capsule 300 mg PO DAILY Qty: 4 0RF aspirin [Adult Aspirin Regimen] 81 mg tablet,delayed release (DR/EC) 81 mg PO DAILY atorvastatin 20 mg tablet 20 mg PO QHS metoprolol tartrate 25 mg tablet 25 mg PO BID thiamine HCl (vitamin B1) 100 mg tablet 100 mg PO BID amlodipine 5 mg tablet 5 mg PO QHS levothyroxine 200 mcg tablet 200 mcg PO DAILY sennosides-docusate sodium [Senna Plus] 8.6-50 mg tablet 1 tab-cap PO DAILY PRN (Reason: constipation) aluminum-magnesium hydroxide 200-200 mg/5 mL suspension 30 ml PO Q4H PRN (Reason: GI DISTRESS) bisacodyl 10 mg suppository 10 mg FL DAILY PRN (Reason: constipation) ascorbic acid (vitamin C) 500 mg Tablet 500 mg PO DAILY Qty: 0 0RF oxycodone 5 mg tablet 5 mg PO Q4H PRN (Reason: pain) ascorbic acid (vitamin C) [C-500] 500 mg tablet 500 mg PO QHS Referrals / Follow Up: Gudla,Millie, MD [Primary Care Provider, Geriatrics] - Within 1 Week Disposition Disposition (needs filled in before D/C Order can be placed): Detention Facility Charges/Coding Visit Charges Inpatient E&M: 55721 Disch Hosp >30min
[2025-03-13] MEDS: Cefepime HCl 0.5 GM in 0.9% Normal Saline (50mL MB+) 50 ML IV (10:49)
--- NOTE | 2025-03-13 11:04 | WOUNDNOTE ---
wound photo: left lower abdomen
--- NOTE | 2025-03-13 11:19 | PHA.DC.MR.R ---
Pharmacy [place] Med Reconciliation Pharmacy Service has performed discharge medication reconciliation for this patient. The patient's discharge medication list was reviewed for discrepancies and discrepancies were resolved. Medications at Discharge Home Medications aspirin 81 mg tablet,delayed release (Adult Aspirin Regimen) 81 mg PO DAILY HEART 03/11/24 atorvastatin 20 mg tablet 20 mg PO QHS CHOLESTEROL 03/11/24 metoprolol tartrate 25 mg tablet 25 mg PO BID HTN 03/11/24 thiamine HCl (vitamin B1) 100 mg tablet 100 mg PO BID SUPPLEMENT 04/11/24 cyclobenzaprine 5 mg tablet 5 mg PO Q8H PRN MUSCLE SPASMS 06/05/24 acetaminophen 325 mg tablet 650 mg PO Q6H PRN fever 07/18/24 aluminum-magnesium hydroxide 200 mg-200 mg/5 mL oral suspension 30 ml PO Q4H PRN GI DISTRESS 07/18/24 amlodipine 5 mg tablet 5 mg PO QHS HTN 07/18/24 docusate sodium 100 mg tablet 100 mg PO PRN PRN constipation 07/18/24 guaifenesin 100 mg/5 mL oral liquid 200 mg PO PRN PRN cough 07/18/24 levothyroxine 200 mcg tablet 200 mcg PO DAILY THYROID 07/18/24 midodrine 10 mg tablet 10 mg PO DAILY PRN for SBP lower than 110 during dialysis tx 07/18/24 ondansetron 4 mg disintegrating tablet 4 mg PO DAILY PRN nausea and vomiting 07/18/24 polyethylene glycol 3350 17 gram/dose oral powder 17 g PO QODAY CONSTIPATION 07/18/24 sennosides 8.6 mg-docusate sodium 50 mg tablet (Senna Plus) 1 tab-cap PO DAILY PRN constipation 07/18/24 vitamin B complex-vitamin C-folic acid 0.8 mg tablet (Renal Vitamin) 1 tab PO DAILY SUPPLEMENT 07/18/24 bisacodyl 10 mg rectal suppository 10 mg [place] DAILY PRN constipation 07/31/24 ascorbic acid (vitamin C) 500 mg tablet 500 mg PO DAILY SUPPLEMENT #0 tabs 08/13/24 acetaminophen 650 mg rectal suppository 650 mg GA Q3H PRN fever or pain 08/14/24 sodium phosphates 19 gram-7 gram/118 mL enema (Enema) 118 ml GA DAILY PRN constipation 08/14/24 albuterol sulfate 2.5 mg/3 mL (0.083 %) solution for nebulization 2.5 mg continuous nebulization Q8H PRN shortness of breath or wheezing 01/20/25 esomeprazole magnesium 40 mg capsule,delayed release 40 mg PO DAILY GERD 01/20/25 ferrous sulfate 325 mg (65 mg iron) tablet 325 mg PO DAILY SUPPLEMENT 01/20/25 furosemide 80 mg tablet 80 mg PO DAILY edema or increased dyspnea 01/20/25 gentamicin 0.1 % topical cream 1 applic topical DAILY LEFT TOE WOUND 01/20/25 mirtazapine 30 mg tablet 30 mg PO QHS MOOD 01/20/25 sertraline 50 mg tablet 50 mg PO DAILY MOOD 01/20/25 IV with Additives 40 mls/hr GT 01/22/25 cefdinir 300 mg capsule 300 mg PO DAILY INFECTION #4 caps 01/22/25 oxycodone 5 mg tablet 5 mg PO Q4H PRN pain 02/28/25 ascorbic acid (vitamin C) 500 mg tablet (C-500) 500 mg PO QHS SUPPLEMENT 03/10/25 ciprofloxacin HCl 500 mg tablet (Cipro) 500 mg PO Q24H #7 tabs 03/13/25
--- NOTE | 2025-03-13 11:34 | CASEMGMT ---
Addendum entered by Severo Marshall 03/13/25 11:53: Correction: Family is not going to be transporting pt, SW is working on having this set up through the community. ONOFRE Lyn RN, CM aware, and will notify [facility] of same. Original Note: JACKIE LEMONS NOTE: Referral sent in [facility] portal to transfer pt from [facility] to [facility]. JACKIE LEMONS spoke w/Sara @ [facility]. She was made aware, plan is for pt to discharge from [facility] today. If they are able to accept pt and able to do OP HD treatment @ [place] tomorrow, then she will be discharging to [facility]. Family can transport pt to OP HD appts. [facility] is requesting new Hep B antigen, Hep B antibody, and Hep C. Orders received from Dr Rogers. Lab aware these are to be drawn stat. Per Sara, they have chair times available tomorrow and they should be able to accept pt and do OP HD @ [facility] tomorrow if these labs are received today. Lab results to be sent via [facility] portal and can also fax to: [phone]. Laura VILLA RN, CM
--- NOTE | 2025-03-13 12:00 | PHA.DC.MR.R ---
Pharmacy [place] Med Reconciliation Pharmacy Service has performed discharge medication reconciliation for this patient. The patient's discharge medication list was reviewed for discrepancies and discrepancies were resolved. Medications at Discharge Home Medications aspirin 81 mg tablet,delayed release (Adult Aspirin Regimen) 81 mg PO DAILY HEART 03/11/24 atorvastatin 20 mg tablet 20 mg PO QHS CHOLESTEROL 03/11/24 metoprolol tartrate 25 mg tablet 25 mg PO BID HTN 03/11/24 thiamine HCl (vitamin B1) 100 mg tablet 100 mg PO BID SUPPLEMENT 04/11/24 cyclobenzaprine 5 mg tablet 5 mg PO Q8H PRN MUSCLE SPASMS 06/05/24 acetaminophen 325 mg tablet 650 mg PO Q6H PRN fever 07/18/24 aluminum-magnesium hydroxide 200 mg-200 mg/5 mL oral suspension 30 ml PO Q4H PRN GI DISTRESS 07/18/24 amlodipine 5 mg tablet 5 mg PO QHS HTN 07/18/24 docusate sodium 100 mg tablet 100 mg PO PRN PRN constipation 07/18/24 guaifenesin 100 mg/5 mL oral liquid 200 mg PO PRN PRN cough 07/18/24 levothyroxine 200 mcg tablet 200 mcg PO DAILY THYROID 07/18/24 midodrine 10 mg tablet 10 mg PO DAILY PRN for SBP lower than 110 during dialysis tx 07/18/24 ondansetron 4 mg disintegrating tablet 4 mg PO DAILY PRN nausea and vomiting 07/18/24 polyethylene glycol 3350 17 gram/dose oral powder 17 g PO QODAY CONSTIPATION 07/18/24 sennosides 8.6 mg-docusate sodium 50 mg tablet (Senna Plus) 1 tab-cap PO DAILY PRN constipation 07/18/24 vitamin B complex-vitamin C-folic acid 0.8 mg tablet (Renal Vitamin) 1 tab PO DAILY SUPPLEMENT 07/18/24 bisacodyl 10 mg rectal suppository 10 mg [place] DAILY PRN constipation 07/31/24 ascorbic acid (vitamin C) 500 mg tablet 500 mg PO DAILY SUPPLEMENT #0 tabs 08/13/24 acetaminophen 650 mg rectal suppository 650 mg OH Q3H PRN fever or pain 08/14/24 sodium phosphates 19 gram-7 gram/118 mL enema (Enema) 118 ml OH DAILY PRN constipation 08/14/24 albuterol sulfate 2.5 mg/3 mL (0.083 %) solution for nebulization 2.5 mg continuous nebulization Q8H PRN shortness of breath or wheezing 01/20/25 esomeprazole magnesium 40 mg capsule,delayed release 40 mg PO DAILY GERD 01/20/25 ferrous sulfate 325 mg (65 mg iron) tablet 325 mg PO DAILY SUPPLEMENT 01/20/25 furosemide 80 mg tablet 80 mg PO DAILY edema or increased dyspnea 01/20/25 gentamicin 0.1 % topical cream 1 applic topical DAILY LEFT TOE WOUND 01/20/25 mirtazapine 30 mg tablet 30 mg PO QHS MOOD 01/20/25 sertraline 50 mg tablet 50 mg PO DAILY MOOD 01/20/25 IV with Additives 40 mls/hr GT 01/22/25 cefdinir 300 mg capsule 300 mg PO DAILY INFECTION #4 caps 01/22/25 oxycodone 5 mg tablet 5 mg PO Q4H PRN pain 02/28/25 ascorbic acid (vitamin C) 500 mg tablet (C-500) 500 mg PO QHS SUPPLEMENT 03/10/25 ciprofloxacin HCl 500 mg tablet (Cipro) 500 mg PO Q24H #7 tabs 03/13/25
[2025-03-13 12:26] LABS: Hepatitis C Antibody Nonreactive (Nonreactive)
--- NOTE | 2025-03-13 12:38 | CASEMGMT ---
[facility] 03/13/25 15:40: SW reports that transportation to HD from the SNF was able to get set up. TC to [facility] in [place] and notified that pt is now established with [facility] in [place]. No further needs identified at this time. Addendum [facility] 03/13/25 14:38: TC to [facility] who states that they are able to accept the pt with a chair time of 1235pm Monday and Fridays. [facility] requests the pt to be there at noon tomorrow for paperwork and around 20 minutes early thereafter. SW notified. Addendum entered by [facility] 03/13/25 13:20: TC to [facility] who states that they received the fax and that they are awaiting final clearance from their doctor and will call this RN CM with a chair time once able. Addendum [facility] 03/13/25 13:15: Correction: Fax was sent to [phone] Addendum entered by Rafi Bryan 03/13/25 13:10: [facility] results [facility] @ [phone] Addendum entered by [facility] 03/13/25 13:06: Hep B antigen results sent to [facility] at this time via the Portal. Requested potential chair time for tomorrow. Original Note: Hep B and C antibody results sent to [facility] via the portal at this time. Hep B antigen is pending. Also notified [facility] that family will not be transporting the pt to and that Care Management is working on getting this arranged. To follow.
--- NOTE | 2025-03-13 12:52 | CASEMGMT ---
Social Work 1215: SW met with pt and pt called sister Janette and had her on speaker phone. SW explained that discharge is in and that pt will be leaving the hospital today. SW explained that [facility] can take pt as long as requested blood work returns today and is approved by [facility]. Janette states she has talked to [facility] who said [facility] can provide transportation to dialysis possibly starting next week, but pt will pay privately to have transportation arranged until [facility] is able to provide. After discussion, pt states she would like to return to [facility] until everything is worked out. Janette states [facility] told Janette that if pt returns to [facility], referral will be cancelled and new referral will be need to be started at [facility] and this process could take several weeks. Pt requesting SW leave the room so pt and Janette can talk privately. Janette requests SW return in 15 minutes. SW left pt room. 1245: SW met with pt and pt agreeable to meet with SW. Pt called sister Janette and had her on speaker phone. Pt states that she is concerned that dialysis will not be set up in [place] and pt cannot go without dialysis. SW explained that SW is aware of this and would not facilitate a discharge to [facility] if pt could not get dialysis. SW again explained that blood work is pending and RNCM will send it to [facility] as soon as it is available and final decision of acceptance will be made. Pt states that if it is guaranteed that pt can get dialysis at [facility], pt would like to discharge to [facility]. YVONNE did inform pt that Monday/Monday schedule would be maintained, but chair time would likely not be the same as [facility]. Pt and sister agreeable to discharge to [facility] today, as long as [facility] can accomodate. 1300: Per RNCM, all bloodwork is back and submitted to [facility]. YVONNE updated [facility] via [employer]. JUVENAL personnel security assistant updated and to obtain PASRR from [facility]. Plan: [facility] with Dialysis at [facility], pending acceptance RICKY Figueroa
[2025-03-13 12:57] LABS: Hepatitis B Surface Antigen Preliminary Reactive (Nonreactive)
--- NOTE | 2025-03-13 14:06 | CASEMGMT ---
Addendum entered by Joellen Billy 03/13/25 15:23: Complete Passr records sent via [facility] to [place]. Joellen Billy DC Planning Asst. Original Note: Discharge Planning Complete Passr records requested via [facility] from [facility]. Joellen Billy DC Planning Asst.
--- NOTE | 2025-03-13 15:34 | PCM.TXEXTCAR ---
Diet Diet Order/Speech Therapy: INPATIENT Hospital Diet / Speech Therapy Order(s) 03/11/25 15:29 Diet: Regular - General Food consistency:: Easy to Chew Liquid Consistency:: Regular/Thin Speech Therapy Comments: distant supervision, meds whole in pudding Routine Orders/Code Status Code Status: DNRCC-A DC O2, CPAP, BIPAP needs Home O2 Discharge instructions: Yes Type of respiratory needs?: Oxygen Oxygen frequency: Continuous Continuous oxygen liters per minute: 3 Wound(s) abdomen LLQ: Wound Type: scabbed over wound Dressing Change: dry dressing Problem/Diagnosis (1) Sepsis: Status: Acute Code(s): A41.9 - Sepsis, unspecified organism Plan Patient is a 64-year-old lady who was sent from the dialysis center with altered mental status as well as hypotension. Imaging studies obtained on admission demonstrated bibasilar pulmonary consolidation consistent with pneumonia diagnosis of sepsis made treatment initiated per protocol admitted to monitored bed for further management 1. Sepsis secondary to pneumonia ? Patient admitted to a monitored bed treatment initiated per protocol with IV fluids, blood cultures sent, as well as broad-spectrum antibiotic therapy with ceftriaxone and azithromycin ? 03/12/2025Patient blood cultures came back positive for gram-positive cocci final identification consistent with staph epi possibly contaminant. Sputum cultures however positive for Pseudomonas patient had been started on vancomycin following receipt of patient positive blood cultures for gram-positive cocci discontinued this a.m. Discontinued ceftriaxone started patient on cefepime pending receipt of the Pseudomonas sensitivity ? Patient final sputum cultures came back positive for Citrobacter as well as Pseudomonas sensitivities reviewed patient remains on appropriate antibiotic therapy 2. Acute metabolic encephalopathy ? Secondary to above ? 03/12/2025; patient back to baseline 3. Physical deconditioning ? Requested for PT OT eval and older adult social work specialist to assist with discharge planning 4. End-stage renal disease ? Patient is on hemodialysis. Consult placed to nephrology 5. Severe malnutrition -Patient severely underweight with temporal wasting and markedly decreased lean muscle mass patient underwent PEG tube placement by GI on 07/24/2024 consult was placed to dietitian on admission 6. Chronic hypoxic respiratory failure ? Patient is on baseline home oxygen 2 L at rest did require up to 4 L on admission 7. Bilateral toe wounds with dry gangrene/stage I sacral pressure ulcer ? Consult placed wound care nurse 8. Anemia ? Secondary to chronic disorder monitoring H&H and transfuse if patient becomes symptomatic or hemoglobin falls below 7 ? 03/12/2025; patient hemoglobin down to 7.9 admitting hemoglobin was 9.4 will continue with daily monitoring 9. History of factor V Leyden mutation ? Remains stable 10. Hypertension ? Blood pressure controlled, home medications continued with dose adjustment as needed 11. GERD ? Patient is on PPI 12. Hypothyroidism ? Patient is on levothyroxine home dose continued 13. Depression with anxiety ? Patient is on sertraline and mirtazapine did continue with home dose 14. Chronic constipation ? Did continue with patient home bowel regimen 15. DVT prophylaxis ? Subcu heparin Time spent in the patient's overall evaluation,decision-making process, review of diagnostic data, adjustment of management, discussion with other providers, nursing nursing and ancillary staff involved in patient's care documentation, 36 Minutes Allergies/Procedures Done in Hospital Allergies iodine Allergy (Intermediate, Verified 03/10/25 13:16) Nausea shellfish derived Allergy (Intermediate, Verified 03/10/25 13:16) Nausea Type of Care/Length of Stay Estimated LOS: More Than 30 Days Type of Care Needed: Intermediate Rehab Potential: Fair Prognosis: Fair Additional Orders/Day of Discharge Day of Discharge: 03/13/25 Dietary and Speech Recommendations Dietitian Recommendations/Changes: 1. Recommend advanced diet as tolerated to regular per FLOAT [employer]DER recommendations. 2. Continue via PEG Nepro Carb Steady goal rate 40mL and will add 120mL water flushes every 4 hours. 3. Adjust water flushes as needed depending on oral intake as diet is advanced. 4. Will monitor weight trends and tube feeding. Discharge Plan Admission Admit Date/Time: 03/10/25 16:49 Attending Provider: Ambrose Rogers Primary Care Provider: Millie Massey Consulting Providers: Jaja Panchal; Angie Torres; Remedios Kessler Discharge Orders/Prescriptions Prescriptions: New ciprofloxacin HCl [Cipro] 500 mg tablet 500 mg PO Q24H Qty: 7 0RF Continued cyclobenzaprine 5 mg tablet 5 mg PO Q8H PRN (Reason: MUSCLE SPASMS) acetaminophen 325 mg tablet 650 mg PO Q6H PRN (Reason: fever) guaifenesin 100 mg/5 mL liquid 200 mg PO PRN PRN (Reason: cough) Renal Vitamin 0.8 mg tablet 1 tab PO DAILY polyethylene glycol 3350 17 gram/dose powder 17 g PO QODAY Rx Instructions: EVERY OTHER DAY AT BED TIME ondansetron 4 mg tablet,disintegrating 4 mg PO DAILY PRN (Reason: nausea and vomiting) docusate sodium 100 mg tablet 100 mg PO PRN PRN (Reason: constipation) midodrine 10 mg tablet 10 mg PO DAILY PRN (Reason: for SBP lower than 110 during dialysis tx) Rx Instructions: for SBP lower than 110 during dialysis tx acetaminophen 650 mg suppository 650 mg WI Q3H PRN (Reason: fever or pain) Enema 19-7 gram/118 mL enema 118 ml WI DAILY PRN (Reason: constipation) Rx Instructions: NEEDED FOR CONSTIPATION FOR 2 EPISODES IF DULCOLAX SUPP INEFFECTIVE. CALL PHYSICIAN IF NO BM X4 DAYS albuterol sulfate 2.5 mg /3 mL (0.083 %) solution for nebulization 2.5 mg continuous nebulization Q8H PRN (Reason: shortness of breath or wheezing) Patient Comments: [NO ORIGINAL SIG] esomeprazole magnesium 40 mg capsule,delayed release(DR/EC) 40 mg PO DAILY gentamicin 0.1 % cream 1 applic topical DAILY mirtazapine 30 mg tablet 30 mg PO QHS furosemide 80 mg tablet 80 mg PO DAILY ferrous sulfate 325 mg (65 mg iron) tablet 325 mg PO DAILY sertraline 50 mg tablet 50 mg PO DAILY IV with Additives Nepro [Nepro Carb Steady] 1000 ML 40 mls/hr GT Ordered By: Glenn Munguia MD Last Taken: Unknown cefdinir 300 mg capsule 300 mg PO DAILY Qty: 4 0RF aspirin [Adult Aspirin Regimen] 81 mg tablet,delayed release (DR/EC) 81 mg PO DAILY atorvastatin 20 mg tablet 20 mg PO QHS metoprolol tartrate 25 mg tablet 25 mg PO BID thiamine HCl (vitamin B1) 100 mg tablet 100 mg PO BID amlodipine 5 mg tablet 5 mg PO QHS levothyroxine 200 mcg tablet 200 mcg PO DAILY sennosides-docusate sodium [Senna Plus] 8.6-50 mg tablet 1 tab-cap PO DAILY PRN (Reason: constipation) aluminum-magnesium hydroxide 200-200 mg/5 mL suspension 30 ml PO Q4H PRN (Reason: GI DISTRESS) bisacodyl 10 mg suppository 10 mg WI DAILY PRN (Reason: constipation) ascorbic acid (vitamin C) 500 mg Tablet 500 mg PO DAILY Qty: 0 0RF oxycodone 5 mg tablet 5 mg PO Q4H PRN (Reason: pain) ascorbic acid (vitamin C) [C-500] 500 mg tablet 500 mg PO QHS Referrals / Follow Up: Millie Massey MD [Primary Care Provider, Geriatrics] - Within 1 Week Disposition Disposition (needs filled in before D/C Order can be placed): [facility]
[2025-03-13 15:46] VITALS: BP 117/55; PULSE 72; RESP 16; TEMP 37; O2SAT 100
--- NOTE | 2025-03-13 15:49 | CASEMGMT ---
Social Work [facility] has accept pt with a start of care tomorrow. Chair times are Monday and Monday at 12:35. Arrival tomorrow at 1200 and after that arrival time 20 minutes before chair time. This information was passed on to [facility] who set up transportation with [facility] for tomorrow and are working on transportation for Monday. [facility] reports that they are hopeful the facility will be able to transport starting on Monday. [facility] is able to accept pt today. relayed all of this information to pt who is agreeable and thankful to be able to discharge to [facility]. Phone call to pts sister Janette and explained above. Janette is agreeable to dc to [facility] today. PASRR obtained from [facility]. YVONNE updated [facility] via careport that pt would not be returning and is transferring to [facility]. Per Janette, she will go to [facility] today to pack up pt's belongings. No further dc needs. Disposition: [facility], intermediate level of care RICKY Figueroa
--- NOTE | 2025-03-13 15:57 | CASEMGMT ---
Discharge Planning Discharge orders, signed med list, and transport time sent via [facility] to [place]. Physicians will transport pt by cot at 5p. Nursing, SW, pt, and her sister (Janette) updated. Joellen Billy DC Planning Asst.
--- NOTE | 2025-03-13 17:05 | NURSING ---
Report called to CLARA Perdomo at [facility] at this time.
== END 2025-03-13 17:30 | disposition skilled nursing facility (03) | DRG 871 ==
LOC: ED 16:39 → PCU 17:27
PROVIDERS: Admitting Provider Internal Medicine; Emergency Provider Student in an Organized Health Care Education/Training Program; PCP Internal Medicine; Visit Provider Internal Medicine
DX: A41.52 Sepsis due to Pseudomonas (principal); E43 Unspecified severe protein-calorie malnutrition; J15.1 Pneumonia due to Pseudomonas; G93.41 Metabolic encephalopathy; N18.6 End stage renal disease; I96 Gangrene, not elsewhere classified; I12.0 Hypertensive chronic kidney disease with stage 5 chronic kidney disease or end stage renal disease; D68.2 Hereditary deficiency of other clotting factors; I24.89 Other forms of acute ischemic heart disease; J96.11 Chronic respiratory failure with hypoxia; J90 Pleural effusion, not elsewhere classified; D68.51 Activated protein C resistance; Z68.1 Body mass index [BMI] 19.9 or less, adult; D63.1 Anemia in chronic kidney disease; Z51.5 Encounter for palliative care; J43.9 Emphysema, unspecified; F32.A Depression, unspecified; E03.9 Hypothyroidism, unspecified; Z93.1 Gastrostomy status; L89.151 Pressure ulcer of sacral region, stage 1; K21.9 Gastro-esophageal reflux disease without esophagitis; I95.9 Hypotension, unspecified; E78.5 Hyperlipidemia, unspecified; F41.9 Anxiety disorder, unspecified; E87.6 Hypokalemia; Z99.2 Dependence on renal dialysis; E87.70 Fluid overload, unspecified; K59.09 Other constipation; Z74.09 Other reduced mobility; R53.81 Other malaise; Z66 Do not resuscitate; Z99.81 Dependence on supplemental oxygen; Z79.890 Hormone replacement therapy; Z79.899 Other long term (current) drug therapy; Z87.891 Personal history of nicotine dependence
CPT/HCPCS: 36415; 36600; 51702; 70450; 71275; 74174; 80048; 80053; 81001; 82803; 83605; 83735; 83880; 84100; 84443; 84484; 85025; 85610; 85730; 86706; 86803; 87040; 87070; 87077; 87086; 87149; 87184; 87186; 87205; 87340; 87631; 90937; 92610; 93005; 97802; 99252; 99285; Q9967; A4216; G0257; G0463; J0696